=== PATIENT | female | born 1950 | race African-American/Black ===

== ENCOUNTER 2019-08-28 12:53 | Emergency (ER) | payer MEDICARE, SELFPAY ==
[2019-08-28] VITALS (7 sets, daily range): BP systolic 134–157; BP diastolic 66–78; PULSE 73–82; RESP 15–18; TEMP 36.8–37; O2SAT 99–100
--- NOTE | ~2019-08-28 | XR_ITS ---
XR foot RT min 3V 08/28/2019 14:02 Indication: Right foot pain Procedure: 4 views right foot Comparison: No prior studies for comparison. 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 There is an erosion involving the medial distal margin of the first metatarsal, suspicious for inflammatory arthropathy such as gout. Lisfranc joint intact. No acute fracture or traumatic malalignment. There are arterial calcifications. There are degenerative changes of the midfoot. Impression: 1: Erosion involving the medial distal margin of the first metatarsal, suspicious for inflammatory ar thropathy such as gout. Reviewed, dictated and finalized at location A. Impression: 1: Erosion involving the medial distal margin of the first metatarsal, suspicio us for inflammatory arthropathy such as gout.
--- NOTE | 2019-08-28 13:55 | ED.WOUNDLAC ---
HPI - Wound/Laceration General Chief Complaint: Wound/Laceration Stated Complaint: R toe infection Time Seen by Provider: 08/28/19 13:30 Source: patient Mode of arrival: ambulatory Limitations: no limitations History of Present Illness HPI narrative: Patient presents with chief complaint of wound to the medial aspect of her great toe for approximately 1 month. Patient is a diabetic and states that she has not been taking 1 of her diabetic medications for the past few weeks.Patient is on Victoza and Basaglar.Patient states that she is out of the blue pen but still has refills of the medeiros. She is not sure which is which. Patient has not been checking her glucose levels recently as she lost her glucometer when she moved. Patient was living at [place] but recently moved in with her daughter due to having some issues caring for herself.Patient states she feels her blood sugars have been in good ranges because she has not felt poorly. Patient with missing appointments and was fired from her primary care practice. Her daughter is now trying to find her a new primary care provider but her appointment is not until the . Patient only reports pain to the toe when touched but states she has diabetic neuropathy. Patient states she has been out of her gabepentin. Patient also has schizophrenia and some issues with memory. Patient denies fever, chills, weakness, lethargy. Related Data Home Medications Medication Instructions Recorded Confirmed gabapentin 100 mg PO TID 08/28/19 insulin glargine [Basaglar KwikPen 24 unit SUBCUT DAILY 08/28/19 U-100 Insulin] liraglutide [Victoza 2-Vivek] 0.6 mg SUBCUT DAILY 08/28/19 Allergies Allergy/AdvReac Type Severity Reaction Status Date / Time No Known Allergies Allergy Verified 08/28/19 13:51 Review of Systems Review of Systems: Narrative: cONSTITUTIONAL: Denies fever, chills, or sweats. EYES: Denies visual changes, redness, or discharge. ENT: Denies rhinorrhea, congestion, sore throat, or otalgia. CARDIOVASCULAR: Denies chest pain, palpitations, or edema. RESPIRATORY: Denies cough or dyspnea. GASTROINTESTINAL: Denies abdominal pain, nausea, vomiting, or diarrhea. GENITOURINARY: Denies dysuria or hematuria. SKIN:Reports wound to great toe. Denies rash or itching. MUSCULOSKELETAL: Denies back pain, joint pain, or myalgia. NEUROLOGIC: Denies headache, numbness, dizziness, or weakness. PSYCHIATRIC: Denies anxiety or depression. [facility], [facility] Social History Social History Gender identity (if verbalized by the patient): Female Exam Narrative: Exam Narrative: GENERAL: Well-appearing, well-nourished, and in no acute distress. HEAD: Normocephalic, atraumatic. EYES: PERRLA and EOMI. ENT: Nares clear, no rhinorrhea or epistaxis. Mucous membranes moist. Oropharynx without tonsillar hypertrophy exudate or other lesions. Bilateral TMs pearly medeiros nonbulging CHEST: Clear to auscultation. No respiratory distress. No wheezes rales or rhonchi HEART: Regular rate and rhythm. Normal peripheral pulses. ABDOMEN: Soft, nontender, nondistended, normal active bowel sounds. EXTREMITIES: Normal range of motion. No edema. SKIN: Quarter size wound to the medial aspect of right great toe- pink center, with thick crusted edges. It is warm and erythematous. There is scant serous fluid noted when squeezed.There is not bleeding. Cap refill intact. NEURO: No focal deficits. Alert and oriented x3. PSYCH: Normal mood and affect. Course Vital Signs Vital signs: Vital Signs Temperature 98.6 F 08/28/19 13:05 Pulse Rate 82 08/28/19 13:05 Respiratory Rate 18 08/28/19 13:05 Blood Pressure 135/66 08/28/19 13:05 Pulse Oximetry 99 08/28/19 13:05 Temperature 98.2 F 08/28/19 13:45 Pulse Rate 74 08/28/19 16:04 Respiratory Rate 16 08/28/19 16:04 Blood Pressure 157/74 H 08/28/19 16:04 Pulse Oximetry 100 08/28/19 16:04 MDM - Wound/Laceration MDM Narrative Medical decision making narrative:
[2019-08-28 14:18] LABS: Basophils Percent Auto 0.5 % (0.2-1.2); Eosinophils Absolute Auto 0.1 K/mm3 (0-0.3); Eosinophils Percent Auto 1.1 % (0-4.4); Hematocrit 34.3 % (37.0-47.0); Hemoglobin 10.8 g/dL (12.0-15.0); Immature Granulocyte Absolute 0.02 K/mm3 (0.00-0.031); Immature Granulocyte Percent A 0.2 % (0-0.5); Lymphocytes Absolute Auto 2.75 K/mm3 (0.9-3.2); Lymphocytes Percent Auto 31.2 % (18.3-44.2); Mean Corpuscular HGB Conc 31.5 g/dl (32-36); Mean Corpuscular Hemoglobin 29.3 pg (26-34); Mean Corpuscular Volume 93.2 fl (80-100); Mean Platelet Volume 10.3 fl (7.4-10.4); Monocytes Absolute Auto 0.5 K/mm3 (0.1-0.6); Monocytes Percent Auto 5.1 % (2.6-8.5); Neutrophils Absolute Auto 5.5 K/mm3 (1.3-6.7); Neutrophils Percent Auto 61.9 % (45.5-73.1); Platelet Count Result 371 k/mm3 (150-375); Red Blood Count 3.68 M/mm3 (4.2-5.4); Red Cell Distribution Width 13.5 % (11.5-14.5); White Blood Count 8.8 K/mm3 (4.5-10.0)
[2019-08-28 14:34] LABS: Albumin Level 3.9 g/dL (3.5-5.1)
[2019-08-28 14:35] LABS: Alanine Aminotransferase 18 U/L (4-35); Alkaline Phosphatase 193 U/L (38-126); Aspartate Amino Transferase 18 U/L (14-36); Bilirubin,Total 0.2 mg/dL (0.2-1.3); Blood Urea Nitrogen 18 mg/dL (7-17); Calcium 9.9 mg/dL (8.4-10.2); Carbon Dioxide 31 mmol/L (22-30); Chloride 99 mmol/L (98-107); Estimated CRCL calculation 46 ml/min; Estimated Glomerular Filt Rate > 60; Glucose 374 mg/dL (65-105); Sodium 137 mmol/L (137-145); Uric Acid 5.3 mg/dL (2.5-7.5)
[2019-08-28 14:43] LABS: CRP 3.6 mg/dL (<1.0)
[2019-08-28 15:08] LABS: Erythrocyte Sedimentation Rate 61 mm/hr (0-20)
--- NOTE | 2019-08-28 15:09 | PC.NURSE ---
SPOKE WITH BRAEDEN AT [facility] IN [place] ABOUT PT MED REC.
--- NOTE | 2019-08-28 15:20 | PC.NURSE ---
FAMILY AT BEDSIDE COMPLAINING THAT ABOUT WAIT TIMES, RN AT BEDSIDE INFORM THEM OF PA CARE PLAN.
[2019-08-28] MEDS: INSULIN HUMAN REGULAR (*BKC) 100 UNITS/ML SUB-Q (15:56)
[2019-08-28] MEDS: SODIUM CHLORIDE 0.9% IV 1,000 ML 999 ML IV CONT (15:56)
[2019-08-28 16:50] LABS: Glucose Point of Care 260 (65-105)
--- NOTE | 2019-08-28 17:22 | PC.NURSE ---
ANAY DE SANTIAGO AT BEDSIDE INFORMING PT OF RESULTS AND CARE PLAN. VERBAL ORDER FOR WET TO DRY DRESSING ON TOE AND DIABETIC EDUCATION.
== END 2019-08-28 18:16 | disposition home or self-care (01) ==
PROVIDERS: Physician Assistant; Emergency Provider Emergency Medicine
DX: E11.621 Type 2 diabetes mellitus with foot ulcer (principal); E11.65 Type 2 diabetes mellitus with hyperglycemia; E11.42 Type 2 diabetes mellitus with diabetic polyneuropathy; Z79.4 Long term (current) use of insulin; L97.519 Non-pressure chronic ulcer of other part of right foot with unspecified severity
CPT/HCPCS: 36415; 73630; 80053; 84550; 85025; 85652; 86140; 96360; 99283; J1815; J7030

== ENCOUNTER 2020-03-25 07:50 | Emergency (ER) | payer MEDICARE, MEDICAID, SELFPAY ==
--- NOTE | ~2020-03-25 | US_ITS ---
EXAMINATION: US venous doppler LE RT EXAM DATE: 03/25/2020 09:50 INDICATION: Right lower extremity swelling. TECHNIQUE: Multiple grayscale, color flow and Doppler images of the right lower extremity deep venous system were obtained and reviewed. There is no prior study for comparison. FINDINGS: The right common femoral, femoral and profunda veins demonstrate normal color flow, respira tory variation, augmentation and compressibility. Compressibility, color flow confirmed within the r ight popliteal, posterior tibial, peroneal, and greater saphenous veins. IMPRESSION: 1. No right lower extremity deep venous thrombosis. Reviewed, dictated and finalized at location A.
--- NOTE | 2020-03-25 08:29 | ECG_ITS ---
Measurements Intervals [place] Rate: 85 P: 66 [place]: 153 QRS: 22 QRSD: 75 T: 68 QT: 378 QTc: 451 Interpretive Statements SINUS RHYTHM DELAYED PRECORDIAL R/S TRANSITION BORDERLINE T WAVE ABNORMALITY- HIGH LATERAL LEADS BORDERLINE ECG Electronically Signed On 03-25-2020 16:50:27 CDT by Melquiades Marte D.O.
[2020-03-25 08:43] VITALS: BP 125/69; PULSE 79; RESP 14; O2SAT 100
[2020-03-25 08:47] LABS: Basophils Percent Auto 0.4 % (0.2-1.2); Eosinophils Absolute Auto 0.1 K/mm3 (0-0.3); Eosinophils Percent Auto 1.3 % (0-4.4); Hematocrit 35.2 % (37.0-47.0); Hemoglobin 11.4 g/dL (12.0-15.0); Immature Granulocyte Absolute 0.02 K/mm3 (0.00-0.031); Immature Granulocyte Percent A 0.2 % (0-0.5); Lymphocytes Absolute Auto 2.41 K/mm3 (0.9-3.2); Lymphocytes Percent Auto 24.7 % (18.3-44.2); Mean Corpuscular HGB Conc 32.4 g/dl (32-36); Mean Corpuscular Hemoglobin 28.6 pg (26-34); Mean Corpuscular Volume 88.2 fl (80-100); Mean Platelet Volume 11.2 fl (7.4-10.4); Monocytes Absolute Auto 0.5 K/mm3 (0.1-0.6); Monocytes Percent Auto 5.2 % (2.6-8.5); Neutrophils Absolute Auto 6.6 K/mm3 (1.3-6.7); Neutrophils Percent Auto 68.2 % (45.5-73.1); Platelet Count Result 310 k/mm3 (150-375); Red Blood Count 3.99 M/mm3 (4.2-5.4); Red Cell Distribution Width 16.9 % (11.5-14.5); White Blood Count 9.8 K/mm3 (4.5-10.0)
[2020-03-25] MEDS: MECLIZINE HCL 25 MG TABLET PO (09:05)
[2020-03-25 09:33] LABS: Anion Gap 5 mmol/L (8-16); Blood Urea Nitrogen 35 mg/dL (7-17); Calcium 9.9 mg/dL (8.4-10.2); Carbon Dioxide 32 mmol/L (22-30); Chloride 104 mmol/L (98-107); Estimated Glomerular Filt Rate 45; Glucose 251 mg/dL (65-105); Potassium 4.8 mmol/L (3.4-5.0); Sodium 141 mmol/L (137-145)
[2020-03-25 09:51] VITALS: BP 141/87; PULSE 78
[2020-03-25 09:52] VITALS: BP 149/80; PULSE 79
[2020-03-25 09:53] VITALS: BP 124/74; PULSE 84
[2020-03-25] MEDS: SODIUM CHLORIDE 0.9% IV 1,000 ML 999 ML IV CONT (10:04)
[2020-03-25 10:14] VITALS: BP 155/82; PULSE 91; RESP 12; O2SAT 12
--- NOTE | 2020-03-25 11:02 | ED.DIZZY ---
HPI - Dizziness General Chief Complaint: Dizziness Stated Complaint: dizzy Time Seen by Provider: 03/25/20 08:38 History of Present Illness HPI Narrative: Patient is a 69-year-old female who presents the ER with dizziness. She reports that over the last couple of days she has had intermittent dizziness where everything is moving in her vision. This morning it was more severe and she is sweaty and nauseated. No vomiting. She has not had previous symptoms like this. No focal numbness or weakness in arm or leg. No slurred speech. She has had no sinus congestion or ringing in her ears or pressure in her ears. Patient also reports increased edema in the right lower extremity since having her great toe operated on couple months ago. Related Data Home Medications Medication Instructions Recorded Confirmed gabapentin 100 mg PO TID 08/28/19 insulin glargine [Basaglar KwikPen 24 unit SUBCUT DAILY 08/28/19 U-100 Insulin] liraglutide [Victoza 2-Vivek] 0.6 mg SUBCUT DAILY 08/28/19 Allergies Allergy/AdvReac Type Severity Reaction Status Date / Time No Known Allergies Allergy Verified 08/28/19 13:51 Review of Systems Review of Systems: All systems reviewed & are unremarkable except as noted in HPI and below Constitutional: Constitutional: Denies chills, Denies fever(s) and Denies weakness Eyes: Eyes: Denies change in vision and Denies photophobia ENT: Reports dizziness, Denies nasal congestion and Denies sore throat Cardiovascular: Cardiovascular: Denies chest pain and Denies rapid heart rate Gastrointestinal: Gastrointestinal: Denies abdominal pain, Reports nausea and Denies vomiting PMFSH Past Medical History Medical History (Updated 03/25/20 @ 11:07 by Navneet Smiley MD) Diabetes Diabetic neuropathy Surgical History Surgical History (Updated 03/25/20 @ 11:06 by Navneet Smiley MD) Right great toe amputee Social History Social History (Updated 03/25/20 @ 11:04 by Navneet Smiley MD) Smoking status: Never smoker Gender identity (if verbalized by the patient): Female Exam Narrative: Exam Narrative: GENERAL: Well-appearing, well-nourished, and in no acute distress. HEAD: Normocephalic, atraumatic. EYES: PERRL and EOMI. ENT: Mucous membranes moist. TM's normal bilaterally. CHEST: Clear to auscultation. No respiratory distress. HEART: Regular rate and rhythm. No murmur heard. Normal peripheral pulses. ABDOMEN: Soft, nontender, nondistended. EXTREMITIES: Normal range of motion. No edema. Bandaged right foot. NEURO: No focal deficits. Clear speech. No facial droop. Alert and oriented x3. Course Course Emergency Course: Dizziness resolved with meclizine. Reports that it was worse when she turns her head from side to side she can do that without issue now. She has been eating and drinking the ER without issue. She will be discharged home. Vital Signs Vital signs: Vital Signs Pulse Rate 79 03/25/20 08:43 Respiratory Rate 14 03/25/20 08:43 Blood Pressure 125/69 03/25/20 08:43 Pulse Oximetry 100 03/25/20 08:43 Pulse Rate 91 03/25/20 10:14 Respiratory Rate 12 03/25/20 10:14 Blood Pressure 155/82 H 03/25/20 10:14 Pulse Oximetry 12 L 03/25/20 10:14 MDM - Dizziness Lab Data Result diagrams: 03/25/20 08:33 03/25/20 09:13 Labs: Lab Results 03/25/20 03/25/20 Range/Units 08:33 09:13 WBC 9.8 (4.5-10.0) K/mm3 RBC 3.99 L (4.2-5.4) M/mm3 Hgb 11.4 L (12.0-15.0) g/dL Hct 35.2 L (37.0-47.0) % MCV 88.2 (80-100) fl MCH 28.6 (26-34) pg MCHC 32.4 (32-36) g/dl RDW 16.9 H (11.5-14.5) % Plt Count 310 (150-375) k/mm3 MPV 11.2 H (7.4-10.4) fl Immature Gran % (Auto) 0.2 (0-0.5) % Neut % (Auto) 68.2 (45.5-73.1) % Lymph % (Auto) 24.7 (18.3-44.2) % Becker % (Auto) 5.2 (2.6-8.5) % Eos % (Auto) 1.3 (0-4.4) % Baso % (Auto) 0.4 (0.2-1.2) % Lymph # (Auto) 2.41 (0.9-3.2) K
[2020-03-25 11:24] VITALS: BP 134/68; PULSE 68; RESP 16; O2SAT 100
== END 2020-03-25 11:25 | disposition home or self-care (01) ==
PROVIDERS: Emergency Provider Emergency Medicine
DX: H81.10 Benign paroxysmal vertigo, unspecified ear (principal); E11.42 Type 2 diabetes mellitus with diabetic polyneuropathy; Z79.4 Long term (current) use of insulin; Z89.411 Acquired absence of right great toe; R60.0 Localized edema
CPT/HCPCS: 36415; 80048; 85025; 93005; 93971; 96360; 99284; A9270; J7030

== ENCOUNTER 2020-05-16 20:53 | Emergency (ER) | payer MEDICARE, MEDICAID, SELFPAY ==
--- NOTE | ~2020-05-16 | CT_ITS ---
EXAMINATION: CT brain wo con DATE: 05/16/2020 22:42 INDICATION: Near syncope TECHNIQUE: Computed tomography (CT) of the head was performed without intravenous contrast. Sagittal and coronal reconstructions were performed. The mA was adjusted according to patient size. Iterative reconstruction technique was employed. The dose-length product was 529.67 mGy-cm. COMPARISON: None FINDINGS: No acute intracranial hemorrhage, acute infarction or abnormal extra axial fluid collection. There is mild scattered white matter hypoattenuation consistent with chronic small vessel ischemic disease. Ventricles are normal and symmetric. No mass/mass effect. Changes of right intraocular lens replaceme nt. The orbits, paranasal sinuses and mastoid air cells are normal. Hyperostosis frontalis. IMPRESSION: 1. No acute intracranial process. 2. Mild scattered white matter hypoattenuation consistent with chronic small vessel ischemic disease. Reviewed, dictated and finalized at [facility]. HEAT TECHNICIAN IMPRESSION: 1. No acute intracranial process. 2. Mild scattered white matter hypoattenuation consistent with chronic small ve ssel ischemic disease.
--- NOTE | ~2020-05-16 | XR_ITS ---
EXAMINATION: XR chest 1V portable DATE: 05/16/2020 22:31 INDICATION: Near syncope, fever, runny nose and numbness fingers. TECHNIQUE: frontal view of the chest was obtained. COMPARISON: None FINDINGS: The lungs are clear with no focal airspace opacities, pulmonary edema, pleural effusion or pneumothor ax. The cardiomediastinal silhouette is normal. IMPRESSION: 1. No acute cardiopulmonary disease. Reviewed, dictated and finalized at location . MATIC BEADING LATHE OPERATOR
[2020-05-16 21:08] VITALS: BP 128/64; PULSE 90; RESP 17; TEMP 36.7; O2SAT 99
[2020-05-16 21:24] VITALS: RESP 11
--- NOTE | 2020-05-16 21:27 | ECG_ITS ---
Measurements Intervals [place] Rate: 84 P: 69 [place]: 155 QRS: 24 QRSD: 81 T: 62 QT: 366 QTc: 433 Interpretive Statements SINUS RHYTHM NORMAL ECG Electronically Signed On 05-17-2020 8:48:18 BATTERY STARTER by Melquiades Marte D.O.
[2020-05-16 21:38] LABS: Basophils Percent Auto 0.3 % (0.2-1.2); Eosinophils Absolute Auto 0.2 K/mm3 (0-0.3); Eosinophils Percent Auto 1.8 % (0-4.4); Hemoglobin 10.9 g/dL (12.0-15.0); Immature Granulocyte Absolute 0.03 K/mm3 (0.00-0.031); Immature Granulocyte Percent A 0.3 % (0-0.5); Lymphocytes Absolute Auto 3.62 K/mm3 (0.9-3.2); Lymphocytes Percent Auto 41.2 % (18.3-44.2); Mean Corpuscular Hemoglobin 29.1 pg (26-34); Mean Platelet Volume 10.9 fl (7.4-10.4); Monocytes Absolute Auto 0.5 K/mm3 (0.1-0.6); Monocytes Percent Auto 5.9 % (2.6-8.5); Neutrophils Absolute Auto 4.4 K/mm3 (1.3-6.7); Neutrophils Percent Auto 50.5 % (45.5-73.1); Platelet Count Result 266 k/mm3 (150-375); Red Blood Count 3.75 M/mm3 (4.2-5.4); Red Cell Distribution Width 16.1 % (11.5-14.5); White Blood Count 8.8 K/mm3 (4.5-10.0)
[2020-05-16 21:49] LABS: Anion Gap 6 mmol/L (8-16); Blood Urea Nitrogen 37 mg/dL (7-17); Calcium 9.8 mg/dL (8.4-10.2); Carbon Dioxide 33 mmol/L (22-30); Chloride 103 mmol/L (98-107); Estimated CRCL calculation 29 ml/min; Estimated Glomerular Filt Rate 49; Glucose 194 mg/dL (65-105); Potassium 4.5 mmol/L (3.4-5.0); Sodium 142 mmol/L (137-145)
[2020-05-16] MEDS: SODIUM CHLORIDE 0.9% IV 500 ML 999 ML IV CONT (22:06)
[2020-05-16 22:07] VITALS: BP 146/74; PULSE 81
[2020-05-16 22:08] VITALS: BP 141/108; PULSE 84
--- NOTE | 2020-05-16 22:08 | PC.NURSE ---
Called lab to add on Hepatic, CMP, MG, Trop I, CBCD
[2020-05-16 22:10] VITALS: BP 138/67; PULSE 86
[2020-05-16 22:19] LABS: Alanine Aminotransferase 14 U/L (4-35); Alkaline Phosphatase 147 U/L (38-126); Anion Gap 9 mmol/L (8-16); Aspartate Amino Transferase 27 U/L (14-36); Bilirubin,Total 0.3 mg/dL (0.2-1.3); Blood Urea Nitrogen 38 mg/dL (7-17); Calcium 9.9 mg/dL (8.4-10.2); Carbon Dioxide 31 mmol/L (22-30); Chloride 103 mmol/L (98-107); Estimated CRCL calculation 29 ml/min; Estimated Glomerular Filt Rate 49; Glucose 198 mg/dL (65-105); Magnesium 1.9 mg/dL (1.6-2.3); Potassium 4.5 mmol/L (3.4-5.0); Sodium 143 mmol/L (137-145)
[2020-05-16 22:22] LABS: Lactic Acid Reflex 1.1 mmol/L (0.7-2.1)
[2020-05-16 22:30] LABS: Troponin I < 0.012 ng/mL (0.000-0.034)
[2020-05-16 22:36] LABS: Add Urine Microscopic? YES; Appearance Urine Clear (Clear); Bilirubin Urine Negative (Negative); Blood Urine Negative (Negative); Color Urine Yellow (Yellow); Glucose Urine UA 3+ mg/dL (Negative); Ketones Urine Negative (Negative); Leukocyte Esterase Ur 1+ LEU/UL (Negative); Mucus Urine Rare /lpf; Nitrate Urine Negative (Negative); Protein Urine 3+ mg/dL (Negative); Specific Grav Ur 1.013 (1.001-1.035); Squamous Epithelial Cell Urine Occasional /hpf (Few); Urobilinogen Urine Negative mg/dL (<2.0); WBC Urine 21-30 /hpf
[2020-05-16 23:32] VITALS: BP 143/84; PULSE 78; RESP 16; O2SAT 99
--- NOTE | 2020-05-16 23:58 | ED.GENADULT ---
HPI - General Adult General Chief complaint: Upper Respiratory Infection Stated complaint: cough, headache, dizzy, fever Time Seen by Provider: 05/16/20 21:31 History of Present Illness HPI narrative: Patient is a 69-year-old female who presents to emergency department with chief complaint of generalized weakness. Patient reports that she has been seen in the emergency department last month for an episode of dizziness and was diagnosed with vertigo. Patient states that for the last several days she has been feeling little weaker than normal feels, lightheaded whenever she stands up and states tonight she started feeling lightheaded and felt as though she was going to pass out but did not actually pass out. Patient denies chest pain denies shortness of breath denies vomiting or diarrhea patient reports symptoms are worse with standing and improved with rest. Related Data Home Medications Medication Instructions Recorded Confirmed insulin glargine [Basaglar KwikPen 24 unit SUBCUT DAILY 08/28/19 U-100 Insulin] gabapentin 05/16/20 liraglutide [Victoza 2-Vivek] mg SUBCUT 05/16/20 lisinopril 05/16/20 Allergies Allergy/AdvReac Type Severity Reaction Status Date / Time No Known Allergies Allergy Verified 05/16/20 21:15 Review of Systems Review of Systems: Narrative: CONSTITUTIONAL: Denies fever, chills, or sweats. EYES: Denies visual changes, redness, or discharge. ENT: Denies rhinorrhea, congestion, sore throat, or otalgia. CARDIOVASCULAR: Denies chest pain, palpitations, or edema. RESPIRATORY: Denies cough or dyspnea. GASTROINTESTINAL: Denies abdominal pain, nausea, vomiting, or diarrhea. GENITOURINARY: Denies dysuria or hematuria. SKIN: Denies rash or itching. MUSCULOSKELETAL: Denies back pain, joint pain, or myalgia. NEUROLOGIC: Denies headache, numbness, or weakness. PSYCHIATRIC: Denies anxiety or depression. A 10 system review of systems was completed on the patient and is negative except for what is stated in the HPI. Nursing and ancillary documentation was reviewed. [facility] Past Medical History Medical History Diabetes Diabetic neuropathy Surgical History Surgical History Right great toe amputee Social History Social History Smoking status: Never smoker Gender identity (if verbalized by the patient): Female Exam Narrative: Exam Narrative: GENERAL: Well-appearing, well-nourished, and in no acute distress. HEAD: Normocephalic, atraumatic. EYES: PERRLA and EOMI. ENT: Nares clear, no rhinorrhea or epistaxis. Mucous membranes moist. NECK: Supple. CHEST: Clear to auscultation. No respiratory distress. HEART: Regular rate and rhythm. No murmur heard. Normal peripheral pulses. ABDOMEN: Soft, nontender, nondistended, normal active bowel sounds. EXTREMITIES: Normal range of motion. No edema. SKIN: Warm, dry, no rash. NEURO: No focal deficits. Alert and oriented x3. PSYCH: Normal mood and affect. Course Course Emergency Course: EKG shows sinus rhythm rate of [address] elevation or ST depression Studies were obtained on the patient which showed that she had a mild urinary tract infection. He had showed no evidence of acute infarct chest x-ray showed no focal abnormalities. At this time the patient will be discharged home she will be started on a course of Keflex. Vital Signs Vital signs: Vital Signs Temperature 36.7 C 05/16/20 21:08 Pulse Rate 90 05/16/20 21:08 Respiratory Rate 17 05/16/20 21:08 Blood Pressure 128/64 05/16/20 21:08 Pulse Oximetry 99 05/16/20 21:08 Temperature 36.7 C 05/16/20 21:08 Pulse Rate 78 05/16/20 23:32 Respiratory Rate 16 05/16/20 23:32 Blood Pressure 143/84 H 05/16/20 23:32 Pulse Oximetry 99 05/16/20 23:32 Medical Decision Making Vital Signs
[2020-05-17 00:10] VITALS: BP 134/96; PULSE 94; RESP 20; TEMP 36.6; O2SAT 97
== END 2020-05-17 00:11 | disposition home or self-care (01) ==
PROVIDERS: General Practice; Emergency Provider Emergency Medicine
DX: N39.0 Urinary tract infection, site not specified (principal); R55 Syncope and collapse; E11.42 Type 2 diabetes mellitus with diabetic polyneuropathy; Z79.4 Long term (current) use of insulin; Z89.411 Acquired absence of right great toe
CPT/HCPCS: 36415; 70450; 71045; 80048; 80053; 81001; 82248; 82948; 83605; 83735; 84484; 85025; 87086; 87088; 93005; 96360; 99284; J7040

== ENCOUNTER 2020-07-23 20:01 | Emergency (ER) | payer MEDICARE, MEDICAID, SELFPAY ==
[2020-07-23 20:09] VITALS: BP 177/81; PULSE 102; RESP 16; TEMP 36.3; O2SAT 97
[2020-07-23 22:08] LABS: Basophils Percent Auto 0.4 % (0.2-1.2); Eosinophils Absolute Auto 0.2 K/mm3 (0-0.3); Eosinophils Percent Auto 1.5 % (0-4.4); Hematocrit 33.5 % (37.0-47.0); Hemoglobin 10.8 g/dL (12.0-15.0); Immature Granulocyte Absolute 0.03 K/mm3 (0.00-0.031); Immature Granulocyte Percent A 0.3 % (0-0.5); Lymphocytes Absolute Auto 2.67 K/mm3 (0.9-3.2); Lymphocytes Percent Auto 27.3 % (18.3-44.2); Mean Corpuscular HGB Conc 32.2 g/dl (32-36); Mean Corpuscular Hemoglobin 30.8 pg (26-34); Mean Corpuscular Volume 95.4 fl (80-100); Mean Platelet Volume 10.7 fl (7.4-10.4); Monocytes Absolute Auto 0.8 K/mm3 (0.1-0.6); Monocytes Percent Auto 8.3 % (2.6-8.5); Neutrophils Absolute Auto 6.1 K/mm3 (1.3-6.7); Neutrophils Percent Auto 62.2 % (45.5-73.1); Platelet Count Result 309 k/mm3 (150-375); Red Blood Count 3.51 M/mm3 (4.2-5.4); Red Cell Distribution Width 14.2 % (11.5-14.5); White Blood Count 9.8 K/mm3 (4.5-10.0)
[2020-07-23 22:19] LABS: Anion Gap 1 mmol/L (8-16); Blood Urea Nitrogen 23 mg/dL (7-17); Calcium 9.8 mg/dL (8.4-10.2); Carbon Dioxide 35 mmol/L (22-30); Chloride 106 mmol/L (98-107); Estimated CRCL calculation 40 ml/min; Estimated Glomerular Filt Rate 60; Glucose 178 mg/dL (65-105); Potassium 4.7 mmol/L (3.4-5.0); Sodium 142 mmol/L (137-145)
--- NOTE | 2020-07-23 22:57 | ED.GENADULT ---
HPI - General Adult General Chief complaint: Extremity Injury, Upper Stated complaint: back and arm pain Time Seen by Provider: 07/23/20 21:01 History of Present Illness HPI narrative: Patient is a 69-year-old female who presents ER with tingling to her fingertips and the tips of her toes. She does have history of diabetic neuropathy and takes gabapentin for this. Reports its increased over the last 2 days and associated with new edema in her feet over the last 2 days. She believes her sugars have been within her normal range for her. No weakness in her arms or legs. Patient reports she still has sensation of sharp/soft/hot/cold despite having the tingling feeling. She cannot find any aggravating or alleviating factors. Patient also reports over the last day she has been having pain in her right trapezius. She is taking Tylenol with helps this slightly. Patient also reports intermittent cramps to her left mid arm and bicep/tricep. Related Data Home Medications Medication Instructions Recorded Confirmed insulin glargine [Basaglar KwikPen 24 unit SUBCUT DAILY 08/28/19 U-100 Insulin] gabapentin 05/16/20 liraglutide [Victoza 2-Vivek] mg SUBCUT 05/16/20 lisinopril 05/16/20 Allergies Allergy/AdvReac Type Severity Reaction Status Date / Time No Known Allergies Allergy Verified 05/16/20 21:15 Review of Systems Review of Systems: All systems reviewed & are unremarkable except as noted in HPI and below Constitutional: Constitutional: Denies chills, Denies fever(s) and Denies weakness ENT: Denies nasal congestion and Denies sore throat Cardiovascular: Cardiovascular: Denies chest pain, Denies rapid heart rate and Denies radiating jaw, neck or arm pain Respiratory: Respiratory: Denies cough, Denies dyspnea and Denies wheezing Gastrointestinal: Gastrointestinal: Denies abdominal pain, Denies nausea and Denies vomiting Musculoskeletal: Musculoskeletal: Denies arthralgias, Denies joint swelling and Reports muscle cramps Comments: Lower extremity edema Neurologic: Denies focal weakness Comments: Paresthesias PMFSH Past Medical History Medical History Diabetes Diabetic neuropathy Surgical History Surgical History Right great toe amputee Social History Social History Smoking status: Never smoker Gender identity (if verbalized by the patient): Female Exam Narrative: Exam Narrative: GENERAL: Well-appearing, well-nourished, and in no acute distress. HEAD: Normocephalic, atraumatic. Neck: Supple, no midline or paraspinal muscular tenderness. There is mild trapezius tenderness on the right side. CHEST: Clear to auscultation. No respiratory distress. HEART: Regular rate and rhythm. Normal peripheral pulses. Back: No midline tenderness of thoracic or lumbar spine. No reproducible paraspinal muscular tenderness or tenderness around the scapula. EXTREMITIES: Normal range of motion. No edema. SKIN: Warm, dry, no rash. NEURO: Mild decrease in pinprick sensation over the fingertips bilaterally and in the toes. Sensation intact more proximally. Alert and oriented x3. Course Course Emergency Course: D-dimer elevated. Patient given Lovenox to help treat potential DVT that is in her legs. An ultrasound has been scheduled for the morning. I have contacted Dr. Lindo who is on-call for the patient's primary care physician Dr. Corcoran. We have discussed the case and the need for close follow-up of results. Reports they will follow them up to ensure she does not need prolonged anticoagulation. Vital Signs Vital signs: Vital Signs Temperature 97.4 F L 07/23/20 20:09 Pulse Rate 102 H 07/23/20 20:09 Respiratory Rate 16 07/23/20 20:09 Blood Pressure 177/81 H 07/23/20 20:09 Pulse Oximetry 97 07/23/20 20:09 Temperatu
[2020-07-23] MEDS: IBUPROFEN 600 MG TABLET PO (23:14)
[2020-07-23 23:15] VITALS: BP 148/72; PULSE 78; RESP 18; O2SAT 99
--- NOTE | 2020-07-23 23:18 | PC.NURSE ---
Assumed Care of Pt. Report from ALIREZA Solares
[2020-07-23 23:24] LABS: Add Urine Microscopic? YES; Appearance Urine Clear (Clear); Bilirubin Urine Negative (Negative); Blood Urine Negative (Negative); Color Urine Straw (Yellow); Glucose Urine UA 2+ mg/dL (Negative); Ketones Urine Negative (Negative); Leukocyte Esterase Ur Trace LEU/UL (Negative); Mucus Urine Rare /lpf; Nitrate Urine Negative (Negative); Protein Urine 3+ mg/dL (Negative); Specific Grav Ur 1.012 (1.001-1.035); Squamous Epithelial Cell Urine Rare /hpf (Few); Urobilinogen Urine Negative mg/dL (<2.0)
[2020-07-23 23:36] LABS: D Dimer 1.17 ug/mL (<0.48)
--- NOTE | 2020-07-24 00:31 | PC.NURSE ---
RN to call Pt's family when d/c [phone] Dennis.
[2020-07-24 00:40] VITALS: BP 135/74; PULSE 88; RESP 17; O2SAT 97
[2020-07-24] MEDS: ENOXAPARIN 80 MG/0.8 ML SYRINGE 73 MG SUB-Q (00:40)
--- NOTE | 2020-07-24 00:48 | PC.NURSE ---
Upon Discharge, RN heard Pt. mention Suing. RN asked Pt. to repeat herself. Pt. states Oh nothing. I need to see my willow machine tender.
== END 2020-07-24 00:40 | disposition home or self-care (01) ==
PROVIDERS: Emergency Provider Emergency Medicine
DX: R60.9 Edema, unspecified (principal); R20.2 Paresthesia of skin; E11.40 Type 2 diabetes mellitus with diabetic neuropathy, unspecified; Z79.4 Long term (current) use of insulin; Z89.411 Acquired absence of right great toe; R82.998 Other abnormal findings in urine
CPT/HCPCS: 36415; 80048; 81001; 84443; 85025; 85380; 87086; 87088; 93970; 96372; 99283; A9270; J1650

== ENCOUNTER 2020-07-24 07:53 | Outpatient (CLI) | payer MEDICARE, MEDICAID, SELFPAY ==
--- NOTE | ~2020-07-24 | US_ITS ---
EXAMINATION: US venous doppler [facility] DATE: 07/24/2020 08:36 INDICATION: Lower limb edema. TECHNIQUE: Grayscale ultrasound images without and with compression and Doppler ultrasound images of the bilateral lower extremity veins were obtained. COMPARISON: Ultrasound 03/25/20 FINDINGS: The visualized portions of right common femoral vein, profunda (deep) femoral vein, femoral vein, pop liteal vein, peroneal veins, posterior tibial veins, and greater saphenous vein outflow are patent. The visualized portions of left common femoral vein, profunda femoral vein, femoral vein, popliteal v ein, peroneal veins, posterior tibial veins, and greater saphenous vein outflow are patent. IMPRESSION: 1. No deep venous thrombosis. Reviewed, dictated and finalized at location A. CUTTER
== END 2020-07-24 07:54 | disposition home or self-care (01) ==
DX: R60.9 Edema, unspecified (principal)
CPT/HCPCS: 93970

== ENCOUNTER 2021-06-23 15:52 | Emergency (ER) | payer MEDICARE, MEDICAID, SELFPAY ==
--- NOTE | ~2021-06-23 | XR_ITS ---
EXAMINATION: XR chest 2V DATE: 06/23/2021 18:37 INDICATION: Cough and fatigue. COVID-19 positive. TECHNIQUE: Frontal and lateral views of the chest were obtained. COMPARISON: Chest single view 05/16/2020 FINDINGS: There is no pneumonia, pleural effusion, pneumothorax. The heart size is normal. There are prominent paracardial fat pads. IMPRESSION: 1. No acute cardiopulmonary disease. Reviewed, dictated and finalized at location A. SE REFINING SUPERVISOR
[2021-06-23 16:42] VITALS: BP 143/49; PULSE 84; RESP 16; TEMP 36.8; O2SAT 100
--- NOTE | 2021-06-23 17:42 | ED.GENADULT ---
HPI - General Adult General Chief complaint: Upper Respiratory Infection Stated complaint: cough Source: patient Mode of arrival: ambulatory Limitations: no limitations History of Present Illness HPI narrative: Patient presents for evaluation of respiratory symptoms for the last 3 days. Symptoms include productive cough of yellow sputum, fatigue and feeling cold . No fever, nausea, vomiting, shortness of breath. Daughter is here being evaluated for similar symptoms. Daughter was here 1 week ago and had negative strep, flu, Covid testing. Has received COVID vaccination and also had booster. Patient's daughters boyfriend currently has Covid. Patient does not smoke. Patient had Covid in February 2020. Related Data Home Medications Medication Instructions Recorded Confirmed insulin glargine [Basaglar KwikPen 24 unit SUBCUT DAILY 08/28/19 U-100 Insulin] lisinopril 05/16/20 atorvastatin 06/23/21 dulaglutide [Trulicity] mg SUBCUT 06/23/21 empagliflozin [Jardiance] mg 06/23/21 06/23/21 hydrochlorothiazide 06/23/21 omeprazole 06/23/21 pregabalin 06/23/21 risperidone mg 06/23/21 Allergies Allergy/AdvReac Type Severity Reaction Status Date / Time No Known Allergies Allergy Verified 06/23/21 16:40 Review of Systems Review of Systems: CONSTITUTIONAL: Reports feeling cold. Reports fatigue. Denies fever or sweats. EYES: Denies visual changes, redness, or discharge. ENT: Denies rhinorrhea, congestion, sore throat, or otalgia. CARDIOVASCULAR: Denies chest pain, palpitations, or edema. RESPIRATORY: Reports productive cough of yellow sputum. Denies shortness of breath. GASTROINTESTINAL: Denies abdominal pain, nausea, vomiting, or diarrhea. GENITOURINARY: Denies dysuria or hematuria. SKIN: Denies rash or itching. MUSCULOSKELETAL: Denies back pain, joint pain, or myalgia. NEUROLOGIC: Denies headache, numbness, dizziness, or weakness. PSYCHIATRIC: Denies anxiety or depression. [facility] Past Medical History Medical History Diabetes Diabetic neuropathy Schizophrenia Surgical History Surgical History Right great toe amputee Family History Family History Mother Family history unknown Social History Social History Smoking status: Never smoker Alcohol intake: never Substance use: never Living arrangements: with family Gender identity (if verbalized by the patient): Female Sexual Orientation (if Verbalized by the Patient): Straight or Heterosexual Spiritual care concerns: No Exam Narrative: GENERAL: Well-appearing, well-nourished, and in no acute distress. HEAD: Normocephalic, atraumatic. EYES: PERRLA and EOMI. ENT: Nares clear, no rhinorrhea or epistaxis. Mucous membranes moist. Posterior pharyngeal erythema without exudate or swelling. Uvula is midline. Bilateral TMs pearly medeiros nonbulging NECK: Supple. No adenopathy or masses. No carotid bruits or JVD CHEST: Clear to auscultation. No respiratory distress. No wheezes rales or rhonchi HEART: Regular rate and rhythm. No murmur heard. Normal peripheral pulses. ABDOMEN: Soft, nontender, nondistended, normal active bowel sounds. EXTREMITIES: Normal range of motion. No edema. SKIN: Warm, dry, no rash. NEURO: No focal deficits. Alert and oriented x3. PSYCH: Normal mood and affect. Course Course Emergency Course: This is a 70-year-old female who presented with complaints of respiratory symptoms. Her rapid Covid was positive. Strep, influenza were negative. Chest x-ray was negative. She is in no distress. Saturations are 100% on room air. She is diabetic so I advised that she call her PCP tomorrow for instructions on how to proceed with her insulin. She should check her blood sugar 3 times a day.
== END 2021-06-23 19:30 | disposition home or self-care (01) ==
PROVIDERS: Emergency Provider Nurse Practitioner; PCP Hospitalist
DX: U07.1 COVID-19 (principal); E11.42 Type 2 diabetes mellitus with diabetic polyneuropathy; Z89.411 Acquired absence of right great toe
CPT/HCPCS: 71046; 87081; 87426; 87804; 87880; 99213; C9803; G0463

== ENCOUNTER 2021-07-31 00:47 | Inpatient (IN) | payer MEDICARE, MEDICAID, SELFPAY ==
[2021-07-31] VITALS (13 sets, daily range): BP systolic 90–141; BP diastolic 47–76; PULSE 69–86; RESP 12–18; TEMP 35.9–36.7; O2SAT 97–100; BMI 26.2
--- NOTE | ~2021-07-31 | CT_ITS ---
EXAMINATION: CT abdomen pelvis wo con EXAM DATE: 07/31/2021 02:29 INDICATION: Suparpubic pain and LLQ pain r/o diverticulitis . TECHNIQUE: Spiral CT of the abdomen and pelvis was performed without contrast. Axial, coronal and s agittal images of the abdomen and pelvis were reviewed. The dose-length product (DLP) for this exami nation was 333.35 mGy-cm. The exposure was tailored according to patient size (auto mA exposure cont rol), and iterative reconstruction (ASIR) was used as additional dose reduction technique. There is no prior study for comparison. FINDINGS: The liver, spleen, adrenal glands and pancreas are unremarkable. Gallbladder is unremarkab le. No biliary obstruction. There is no nephrolithiasis or hydronephrosis. The uterus is unremark able. The bladder is unremarkable. There is no retroperitoneal or pelvic lymphadenopathy. The appendix is normal. The stomach and small bowel are unremarkable. There is expected amount of c olonic stool. No free intraperitoneal gas. The heart is normal in size. There are no pericardial or pleural effusions. The lung bases are unremarkable. There are no osteoblastic or osteolytic les ions identified. IMPRESSION: 1. No acute intra-abdominal findings. Reviewed, dictated and finalized at location B. ENT CURATOR
--- NOTE | ~2021-07-31 | XR_ITS ---
EXAMINATION: XR chest 1V portable DATE: 07/31/2021 02:09 INDICATION: Recent COVID presenting with weakness and elevated lactic acid TECHNIQUE: frontal view of the chest was obtained. COMPARISON: Chest radiograph dated 06/23/2021 and 05/16/2020 FINDINGS: Unchanged thin linear opacity at the lateral right lower lung zone consistent with chronic mild disco id atelectasis/scarring. No other airspace opacities, pulmonary edema, pleural effusion or pneumothor ax. The cardiomediastinal silhouette is normal. Visualized bones and soft tissues are unremarkable. IMPRESSION: 1. Chronic mild linear discoid atelectasis/scarring at the right lower lung zone. No acute cardiopulm onary disease. Reviewed, dictated and finalized at location A. DING SPECIALIST IMPRESSION: 1. Chronic mild linear discoid atelectasis/scarring at the right lower lung zon e. No acute cardiopulmonary disease.
--- NOTE | ~2021-07-31 | CT_ITS ---
EXAMINATION: CT brain wo con, CT cervical spine wo con EXAM DATE: 07/31/2021 01:43 (accession [id number]), 07/31/2021 01:44 (accession [id number]) INDICATION: falls, weakness, fatigue . TECHNIQUE: Spiral CT of the head was performed without contrast. Axial, coronal and sagittal images were reviewed. Spiral CT of the cervical spine was performed without contrast. Axial images were rev iewed. Coronal and sagittal reformatted images were also reviewed. The dose-length product (DLP) fo r this examination was 605.33 (accession [id number]), 343.93 (accession [id number]) mGy-cm. The exposure was tailored according to patient size, and iterative reconstruction (ASIR) was used as additional dose reduction technique. Comparison is made to prior examination from 05/16/2020. FINDINGS: HEAD CT: There is no acute intraparenchymal hemorrhage. No evidence of intraparenchymal brain mass l esion. No evidence of acute infarction. There is periventricular and subcortical hypodensity, nonspe cific but probably related to small vessel ischemic disease. There is no mass effect or midline sh ift. There is no obstructive hydrocephalus suspected. There are no extra-axial collections. There a re no acute calvarial fractures. Patient has had bilateral ocular lens surgery. Soft tissue is unre markable. The visualized sinuses and mastoid air cells are well aerated. CERVICAL CT: Moderate cervical spondylosis. There is no evidence of acute cervical fracture. The odo ntoid process is intact. Pre-dens space is normal. Prevertebral soft tissue is normal. There are n o soft tissue abnormalities identified. There is no disc space widening or traumatic vertebral body subluxation suspected. Vertebral body and disc heights are well-maintained. A detailed level by oleksandr valle evaluation of spondylosis can be added as addendum if requested. IMPRESSION: 1. No acute intracranial findings or cervical fracture. 2. Moderate cervical spondylosis. 3. Mild microangiopathy. Reviewed, dictated and finalized at location B. ING HAULER IMPRESSION: 1. No acute intracranial findings or cervical fracture. 2. Moderate cervical spondylosis. 3. Mild microangiopathy.
--- NOTE | ~2021-07-31 | US_ITS ---
EXAMINATION: US carotid duplex BI DATE: 08/01/2021 08:50 INDICATION: Syncope. Internal carotid artery atherosclerosis. TECHNIQUE: Grayscale, color Doppler, and pulsed Doppler images of the cervical carotid arteries were obtained. The degree of vessel stenosis is placed in one of the following categories: normal, <50%, 5 0-69%, >=70% but less than near-occlusion, near-occlusion, or total occlusion. Note that percent sten osis relative to normal distal artery lumen diameter is indirectly measured from velocity measurement s as described by Etja, et al. Radiology 2003; 229:340-346. COMPARISON: None. FINDINGS: RIGHT: The right common carotid artery (CCA) peak systolic velocity (PSV) is 72 cm/s. The right internal car otid artery (ICA) PSV is 67 cm/s. The right ICA end-diastolic velocity (EDV) is 20 cm/s. The right IC A/CCA PSV ratio is 0.9. Grayscale and color Doppler images yield an estimate of <50% diameter reducti on from plaque in the ICA. The external carotid artery (ECA) PSV is 63 cm/s. There is antegrade flow in the right vertebral artery. LEFT: The left CCA PSV is 85 cm/s. The left ICA PSV is 82 cm/s. The left ICA EDV is 23 cm/s. The left ICA/C CA PSV ratio is 1.0. Grayscale and color Doppler images yield an estimate of <50% diameter reduction from plaque in the ICA. The ECA PSV is 65 cm/s. There is antegrade flow in the left vertebral artery. IMPRESSION: 1. <50% stenosis in the right internal carotid artery. 2. <50% stenosis in the left internal carotid artery. Reviewed, dictated and finalized at location A. STAGE DEVELOPER
--- NOTE | 2021-07-31 01:17 | ECG_ITS ---
Measurements Intervals [place] Rate: 80 P: 67 LA: 164 QRS: 16 QRSD: 70 T: 64 QT: 399 QTc: 463 Interpretive Statements SINUS RHYTHM BASELINE ARTIFACT- I, II NORMAL ECG Electronically Signed On 07-31-2021 6:30:33 VIBRATION TECHNICIAN by Melquiades Marte D.O.
--- NOTE | 2021-07-31 01:18 | ED.WEAKNESS ---
HPI - Weakness General Chief complaint: Weakness Stated complaint: dizziness, syncope over 3-4 days Time Seen by Provider: 07/31/21 01:10 Source: patient History of Present Illness HPI Narrative: Patient presents with weakness and falls over the past few days. She also reports she has had decreased appetite. Patient reports she had some mild neck pain abdominal pain but denies recent fevers, cough, congestion. She denies hitting her head. She denies any chest pain or shortness of breath. She will just be walking and her legs give out. They reports she is also been sleeping more than usual. Related Data Home Medications Medication Instructions Recorded Confirmed insulin glargine [Basaglar KwikPen 24 unit SUBCUT DAILY 08/28/19 U-100 Insulin] lisinopril 05/16/20 atorvastatin 06/23/21 dulaglutide [Trulicity] mg SUBCUT 06/23/21 empagliflozin [Jardiance] mg 06/23/21 06/23/21 hydrochlorothiazide 06/23/21 omeprazole 06/23/21 pregabalin 06/23/21 risperidone mg 06/23/21 Allergies Allergy/AdvReac Type Severity Reaction Status Date / Time No Known Allergies Allergy Verified 06/23/21 16:40 Review of Systems Review of Systems: CONSTITUTIONAL: Denies fever, chills, or sweats. EYES: Denies visual changes, redness, or discharge. ENT: Denies rhinorrhea, congestion, sore throat, or otalgia. CARDIOVASCULAR: Denies chest pain, palpitations, or edema. RESPIRATORY: Denies cough or dyspnea. GASTROINTESTINAL: Denies nausea, vomiting, or diarrhea. GENITOURINARY: Denies dysuria or hematuria. SKIN: Denies rash or itching. MUSCULOSKELETAL: Denies back pain, joint pain, or myalgia. NEUROLOGIC: Denies headache, numbness, dizziness, or focal weakness. PSYCHIATRIC: Denies anxiety or depression. All systems reviewed & are unremarkable except as noted in HPI and below PMFSH Past Medical History Medical History Diabetes Diabetic neuropathy Schizophrenia Surgical History Surgical History Right great toe amputee Family History Family History Mother Family history unknown Social History Social History Smoking status: Never smoker Alcohol intake: never Substance use: never Gender identity (if verbalized by the patient): Female Sexual Orientation (if Verbalized by the Patient): Straight or Heterosexual Spiritual care concerns: No Exam Narrative: GENERAL: Well-appearing, well-nourished, and in no acute distress. HEAD: Normocephalic, atraumatic. EYES: PERRLA and EOMI. ENT: Nares clear, no rhinorrhea or epistaxis. Mucous membranes moist. NECK: Supple. No masses. No JVD CHEST: Clear to auscultation. No respiratory distress. No wheezes rales or rhonchi HEART: Regular rate and rhythm. No murmur heard. Normal peripheral pulses. ABDOMEN: Soft, nontender, nondistended, normal active bowel sounds. EXTREMITIES: Normal range of motion. No edema. SKIN: Warm, dry, no rash. NEURO: No focal deficits. Alert and oriented x3. PSYCH: Normal mood and affect. Course Reevaluation(s) Reevaluation #1: Patient resting comfortably blood pressure has improved results and plan reviewed with patient and family patient family are comfortable with outpatient plan. Date: 07/31/21 Time: 04:11 Vital Signs Vital signs: Vital Signs Temperature 36.7 C 07/31/21 00:58 Pulse Rate 86 07/31/21 00:58 Respiratory Rate 16 07/31/21 00:58 Blood Pressure 90/47 L 07/31/21 00:58 Pulse Oximetry 100 07/31/21 00:58 Temperature 36.7 C 07/31/21 00:58 Pulse Rate 72 07/31/21 04:30 Respiratory Rate 12 07/31/21 04:30 Blood Pressure 138/76 07/31/21 04:30 Pulse Oximetry 97 07/31/21 04:30 MDM - Weakness Medical Records Medical records narrative: Patient presented with nonspecific weakness and de
[2021-07-31 01:38] LABS: Basophils Percent Auto 0.4 % (0.2-1.2); Eosinophils Absolute Auto 0.1 K/mm3 (0-0.3); Hematocrit 32.7 % (37.0-47.0); Immature Granulocyte Absolute 0.04 K/mm3 (0.00-0.031); Immature Granulocyte Percent A 0.4 % (0-0.5); Lymphocytes Absolute Auto 2.44 K/mm3 (0.9-3.2); Lymphocytes Percent Auto 23.2 % (18.3-44.2); Mean Corpuscular HGB Conc 30.6 g/dl (32-36); Mean Corpuscular Hemoglobin 29.9 pg (26-34); Mean Corpuscular Volume 97.6 fl (80-100); Mean Platelet Volume 10.7 fl (7.4-10.4); Monocytes Absolute Auto 0.7 K/mm3 (0.1-0.6); Monocytes Percent Auto 6.2 % (2.6-8.5); Neutrophils Absolute Auto 7.2 K/mm3 (1.3-6.7); Neutrophils Percent Auto 68.8 % (45.5-73.1); Platelet Count Result 287 k/mm3 (150-375); Red Blood Count 3.35 M/mm3 (4.2-5.4); Red Cell Distribution Width 15.1 % (11.5-14.5); White Blood Count 10.5 K/mm3 (4.5-10.0)
[2021-07-31] MEDS: SODIUM CHLORIDE 0.9% IV 1,000 ML 999 ML IV CONT ×2 (01:49→04:42)
[2021-07-31 01:53] LABS: Alanine Aminotransferase 19 U/L (4-35); Albumin Level 4.2 g/dL (3.5-5.1); Alkaline Phosphatase 94 U/L (38-126); Anion Gap 11 mmol/L (8-16); Aspartate Amino Transferase 27 U/L (14-36); Bilirubin,Total 0.4 mg/dL (0.2-1.3); Blood Urea Nitrogen 51 mg/dL (7-17); Calcium 9.5 mg/dL (8.4-10.2); Carbon Dioxide 23 mmol/L (22-30); Chloride 108 mmol/L (98-107); Estimated CRCL calculation 12 ml/min; Estimated Glomerular Filt Rate 14; Glucose 238 mg/dL (65-110); Potassium 4.1 mmol/L (3.4-5.0); Sodium 142 mmol/L (137-145)
[2021-07-31 01:56] LABS: Lactic Acid Reflex 4.1 mmol/L (0.7-2.1)
[2021-07-31 03:41] LABS: Add Urine Microscopic? YES; Appearance Urine Clear (Clear); Bilirubin Urine Negative (Negative); Blood Urine Negative (Negative); Color Urine Yellow (Yellow); Glucose Urine UA 3+ mg/dL (Negative); Ketones Urine Negative (Negative); Leukocyte Esterase Ur Negative LEU/UL (Negative); Mucus Urine Rare /lpf; Nitrate Urine Negative (Negative); Protein Urine 2+ mg/dL (Negative); RBC Urine 0-2 /hpf (0-2); Specific Grav Ur 1.012 (1.001-1.035); Squamous Epithelial Cell Urine Rare /hpf (Few); Urobilinogen Urine Negative mg/dL (<2.0); WBC Urine 0-3 /hpf
[2021-07-31 04:27] LABS: SARS-CoV-2 RNA PCR Negative
[2021-07-31 04:36] LABS: Reflex Lactic Acid Yes or No Add Lactic
[2021-07-31 05:31] LABS: Lactic Acid 2.1 mmol/L (0.7-2.1)
--- NOTE | 2021-07-31 06:19 | ADMGEN ---
This patient, Barbara Chakraborty, was admitted to Medical Room 244-. Patient/family oriented to hospital policies and general routines including ID bracelet, bed and alarms, visiting hours, pain management, procedures, bathroom and other care routines, personal items, smoking policy, room service/diet, and visiting hours. Information on how to activate the Rapid Response Team has been discussed. Patient/Family are encouraged to report perceived risks to care and to ask questions if they do not understand what they are told or what they should do.
[2021-07-31] MEDS: SODIUM CHLORIDE 0.9% IV 1,000 ML 125 ML IV CONT ×3 (06:22→22:24)
[2021-07-31 07:54] LABS: Glucose Point of Care 149 mg/dl (65-105)
[2021-07-31 11:55] LABS: Glucose Point of Care 163 mg/dl (65-105)
--- NOTE | 2021-07-31 13:12 | PM.IMHP ---
H&P: HPI History of Present Illness Date/Time: 07/31/21 13:12 70-year-old female presents to the emergency room accompanied by her family with complaint of recurrent falls over the last week. Patient states that she was trying to ambulate when she realized she was going to fall and went down next to a chair landing on her knees. Per patient this has been happening a few times this week also associated with nausea and feeling dizzy like she is going to pass out and poor appetite/p.o. intake. Dizziness is worse with movement improves with rest. She denies changes in urinary frequency, fever, chills, shortness of breath, chest pain, vision changes, diaphoresis, headache, and new neuropathic symptoms. Remaining 14 point review of systems negative except for above mentioned Chief Complaint: Generalized weakness Review of Systems Review of Systems: All systems reviewed & are unremarkable except as noted in HPI and below PMFSH Past Medical History Medical History (Updated 07/31/21 @ 17:39 by Linda Roberto MD) COVID Diabetes Diabetic neuropathy Schizophrenia Surgical History Surgical History Right great toe amputee Family History Family History (Updated 07/31/21 @ 06:27 by Nadege Medina RN) Mother Family history unknown Father Heart attack Social History Social History Smoking status: Never smoker Alcohol intake: never Substance use: never Substance use type: does not use Gender identity (if verbalized by the patient): Female Sexual Orientation (if Verbalized by the Patient): Straight or Heterosexual Spiritual care concerns: No Meds Home Medications and Allergies Home Medications Medication Instructions Recorded Confirmed Type lisinopril 20 mg PO HS 05/16/20 07/31/21 History atorvastatin 40 mg PO HS 06/23/21 07/31/21 History dulaglutide [Trulicity] 4.5 mg SUBCUT WEEKLY 06/23/21 07/31/21 History empagliflozin [Jardiance] 25 mg PO DAILY 06/23/21 07/31/21 History hydrochlorothiazide 25 mg PO DAILY 06/23/21 07/31/21 History omeprazole 20 mg PO DAILY 06/23/21 07/31/21 History pregabalin 150 mg PO HS 06/23/21 07/31/21 History docusate sodium [Colace] 50 mg PO BID PRN 07/31/21 07/31/21 History haloperidol 5 mg PO HS 07/31/21 07/31/21 History insulin glargine [Lantus Solostar 60 unit SUBCUT HS 07/31/21 07/31/21 History U-100 Insulin] Allergies Allergy/AdvReac Type Severity Reaction Status Date / Time No Known Allergies Allergy Verified 06/23/21 16:40 Vital Signs Vital Signs - 24 hr 07/31/21 00:58 07/31/21 01:30 07/31/21 01:48 Temperature 98.0 F Pulse Rate 86 80 78 Respiratory Rate 16 16 Blood Pressure 90/47 L 114/48 L Pulse Oximetry 100 98 07/31/21 02:02 07/31/21 04:30 07/31/21 06:06 Temperature Pulse Rate 77 72 69 Respiratory Rate 14 12 16 Blood Pressure 120/53 L 138/76 113/53 L Pulse Oximetry 99 97 98 07/31/21 06:23 Temperature 96.6 F L Pulse Rate 72 Respiratory Rate 18 Blood Pressure 113/48 L Pulse Oximetry 98 Exam Const: General: comfortable and no acute distress HENMT: General nose exam: Normal nares present Mouth: Yes moist mucous membranes Eyes: General: appearance normal, both eyes and all related structures Neck: Neck: supple and no JVD Lymphatic: lymphadenopathy not noted Resp: Auscultation: clear to auscultation bilaterally, no rales, no rhonchi and no wheezes Cardio: Rate: regular rate Rhythm: regular rhythm GI: Inspection: non-distended GI Palp: Yes Soft to palpation, No Tenderness to palpation present (GI) and No Guarding due to palpation present (GI) Auscultation: normal bowel sounds Urinary Catheter: Urinary Catheter: patent and draining and urine clear Skin: General skin exam: normal color, no rashes or lesions noted and no erythema Neuro: Cognition (Neuro): normal cognition Speech: normal speech Motor exa
[2021-07-31 14:00] LABS: Anion Gap 7 mmol/L (8-16); Blood Urea Nitrogen 43 mg/dL (7-17); Calcium 8.6 mg/dL (8.4-10.2); Carbon Dioxide 24 mmol/L (22-30); Chloride 109 mmol/L (98-107); Estimated CRCL calculation 15 ml/min; Estimated Glomerular Filt Rate 22; Glucose 223 mg/dL (65-110); Potassium 4.6 mmol/L (3.4-5.0); Sodium 140 mmol/L (137-145)
[2021-07-31 16:33] LABS: Glucose Point of Care 218 mg/dl (65-105)
[2021-07-31] MEDS: INSULIN ASPART (*BKC) 100 UNITS/ML SUB-Q (16:53)
[2021-07-31] MEDS: ATORVASTATIN 40 MG TABLET PO (20:32)
[2021-07-31] MEDS: HALOPERIDOL 5 MG TABLET PO (20:32)
[2021-07-31] MEDS: HEPARIN SODIUM 5,000 UNITS/ML VIAL 5000 UNITS SUB-Q (20:33)
[2021-07-31 21:03] LABS: Glucose Point of Care 292 mg/dl (65-105)
[2021-08-01] VITALS (13 sets, daily range): BP systolic 144–178; BP diastolic 55–73; PULSE 69–77; RESP 16–17; TEMP 36.1–36.8; O2SAT 97–100
--- NOTE | 2021-08-01 | ECHO_ITS ---
Patient Info Name: Barbara Chakraborty Age: 70 years : 1950 Gender: Female Ht: 62 in Wt: 143 lbs BSA: 1.70 m2 HR: 75 bpm BP: 149 / 65 mmHg Technical Quality: Good Exam Date: 08/01/2021 9:03 AM Exam Location: [facility] Patient Status: Inpatient Admit Date: 07/31/2021 Staff Ordering Physician: Linda Roberto MD Logistics Supply Officer: Yara Coleman RDCS Attending Provider: Scot Davis MD Referring Physician: Pardeep TURPIN; Exam Type: CA echo doppler color flow Study Info Indications R55 - Syncope and collapse Complete two-dimensional, color flow and Doppler transthoracic echocardiogram is performed. Summary 1. Complete two-dimensional, color flow and Doppler transthoracic echocardiogram is performed. 2. Left ventricular systolic function is normal, estimated at 60-65%. 3. There is mildly increased left ventricular wall thickness. 4. The left ventricular diastolic function is grade I diastolic dysfunction. 5. There is mild aortic valve regurgitation. 6. There is mild aortic valve sclerosis. 7. There is trace mitral valve regurgitation. 8. There is trace tricuspid valve regurgitation. 9. No pulmonary hypertension, estimated pulmonary arterial systolic pressure is 35 mmHg. Left Ventricle Left ventricular chamber dimension is normal. Left ventricular systolic function is normal, estimated at 60-65%. There is mildly increased left ventricular wall thickness. Left ventricular septal wall motion is normal. The left ventricular diastolic function is grade I diastolic dysfunction. Global longitudinal strain is abnormal at -15 %. Right Ventricle Right ventricular chamber dimension is normal. Right ventricular systolic function is normal. Left Atria Left atrial chamber dimension is normal. Right Atria Right atrial chamber dimension is normal. Aortic Valve The aortic valve is trileaflet. There is mild aortic valve sclerosis. There is no aortic valve stenosis. There is mild aortic valve regurgitation. Pulmonic Valve The pulmonic valve is normal. There is no pulmonic valve stenosis. There is no pulmonic regurgitation. Mitral Valve The mitral valve has normal leaflets. There is no mitral valve stenosis. There is trace mitral valve regurgitation. Tricuspid Valve The tricuspid valve leaflets are normal. There is mild tricuspid valve stenosis. There is trace tricuspid valve regurgitation. No pulmonary hypertension, estimated pulmonary arterial systolic pressure is 35 mmHg. Pericardium/Pleural The pericardium appears normal. There is no pericardial effusion. Inferior Vena Cava Normal inferior vena cava with >50% collapse upon inspiration consistent with Empty right atrial pressure, 10 mmHg. Aorta The aortic root size at the sinus of Valsalva is normal. The prox ascending aorta size is normal. Left Ventricular Outflow Tract Name Value Normal LVOT 2D LVOT Diameter 1.9 cm LVOT Doppler LVOT Peak Gradient 5 mmHg LVOT Mean Gradient 3 mmHg LVOT VTI 23 cm LVOT VTI/
[2021-08-01] MEDS: HEPARIN SODIUM 5,000 UNITS/ML VIAL 5000 UNITS SUB-Q ×3 (05:10→20:58)
[2021-08-01 09:17] LABS: Anion Gap 5 mmol/L (8-16); Blood Urea Nitrogen 30 mg/dL (7-17); Calcium 9.1 mg/dL (8.4-10.2); Carbon Dioxide 25 mmol/L (22-30); Chloride 112 mmol/L (98-107); Estimated CRCL calculation 18 ml/min; Estimated Glomerular Filt Rate 28; Glucose 172 mg/dL (65-110); Potassium 4.8 mmol/L (3.4-5.0); Sodium 142 mmol/L (137-145)
[2021-08-01] MEDS: SODIUM CHLORIDE 0.9% IV 1,000 ML 125 ML IV CONT (09:29)
[2021-08-01] MEDS: PANTOPRAZOLE 40 MG TABLET PO (09:30)
[2021-08-01] MEDS: INSULIN GLARGINE (*BKC) 100 UNITS/ML 15 UNITS SUB-Q ×2 (09:30→16:56)
[2021-08-01 09:36] LABS: Glucose Point of Care 149 mg/dl (65-105)
[2021-08-01 11:14] LABS: Basophils Absolute Auto 0.1 K/mm3 (0.0-0.1); Basophils Percent Auto 0.4 % (0.2-1.2); Eosinophils Absolute Auto 0.2 K/mm3 (0-0.3); Eosinophils Percent Auto 1.7 % (0-4.4); Hemoglobin 10.3 g/dL (12.0-15.0); Immature Granulocyte Absolute 0.03 K/mm3 (0.00-0.031); Immature Granulocyte Percent A 0.3 % (0-0.5); Lymphocytes Absolute Auto 2.63 K/mm3 (0.9-3.2); Mean Corpuscular HGB Conc 31.2 g/dl (32-36); Mean Corpuscular Volume 96.2 fl (80-100); Monocytes Absolute Auto 0.8 K/mm3 (0.1-0.6); Monocytes Percent Auto 7.2 % (2.6-8.5); Neutrophils Absolute Auto 7.7 K/mm3 (1.3-6.7); Neutrophils Percent Auto 67.4 % (45.5-73.1); Platelet Count Result 294 k/mm3 (150-375); Red Blood Count 3.43 M/mm3 (4.2-5.4); Red Cell Distribution Width 14.9 % (11.5-14.5); White Blood Count 11.5 K/mm3 (4.5-10.0)
[2021-08-01 11:35] LABS: Glucose Point of Care 168 mg/dl (65-105)
--- NOTE | 2021-08-01 13:43 | PM.IMPN ---
Progress Note: A&P Assessment and Plan (1) Elevated lactic acid level: Code(s): R79.89 - Other specified abnormal findings of blood chemistry Status: Acute (2) STEFANO (acute kidney injury): Code(s): N17.9 - Acute kidney failure, unspecified Status: Acute (3) Schizophrenia: Code(s): F20.9 - Schizophrenia, unspecified Status: Acute (4) Diabetes: Code(s): E11.9 - Type 2 diabetes mellitus without complications Status: Acute (5) Poor fluid intake: Code(s): R63.8 - Other symptoms and signs concerning food and fluid intake Status: Acute (6) Decreased appetite: Code(s): R63.0 - Anorexia Status: Acute (7) Weakness generalized: Code(s): R53.1 - Weakness Status: Acute Assessment and Plan: admit to inpatient STEFANO start NS geller for strict Is/Os ST eval blood cultures pending ISS (8) Hyperglycemia due to diabetes mellitus: Code(s): E11.65 - Type 2 diabetes mellitus with hyperglycemia Status: Acute (9) Near syncope: Code(s): R55 - Syncope and collapse Status: Acute (10) Vertigo: Code(s): R42 - Dizziness and giddiness Status: Acute Additional Plan admit to inpatient Telemetry monitoring Echo Carotid ultrasound STEFANO start NS geller for strict Is/Os ST eval blood cultures pending ISS reduce home PM insulin until BG trend inpt reviewed cont zosyn PT/OT heparin SCDs 08/01/21 pt feeling better PT/OT pending STEFANO improving meclizine ordered for her vertigo c/s placed to neurology psychiatric illness appears stable blood cultures NGTD cont current care Subjective Date/time seen: 08/01/21 13:43 pt states that she is feeling better and her strength is improving she is advised that her renal function is improving. pt states that she thinks that she did not drink enough fluid Exam Const: General: comfortable and no acute distress HENMT: General nose exam: Normal nares present Mouth: Yes moist mucous membranes Eyes: General: appearance normal, both eyes and all related structures Neck: Neck: supple and no JVD Resp: Auscultation: clear to auscultation bilaterally, no rales, no rhonchi and no wheezes Cardio: Rate: regular rate Rhythm: regular rhythm GI: Inspection: non-distended Auscultation: normal bowel sounds Urinary Catheter: Urinary Catheter: patent and draining and urine clear Skin: General skin exam: normal color, no rashes or lesions noted and no erythema Neuro: Cognition (Neuro): normal cognition Speech: normal speech Motor exam (neuro): Normal motor muscle tone present throughout Extrem: General: normal to inspection, no edema and no pedal edema Psych: Mental Status: mental status grossly normal Affect: normal affect Objective Data Vital Signs Vital Signs: Vital Signs - 24 hr 07/31/21 14:03 07/31/21 20:00 07/31/21 20:42 Temperature 97.5 F L Pulse Rate 75 75 72 Respiratory Rate 16 16 Blood Pressure 141/54 H Pulse Oximetry 100 100 07/31/21 22:05 07/31/21 22:23 07/31/21 22:24 Temperature 97.9 F Pulse Rate 74 Respiratory Rate 16 Blood Pressure 122/50 L 108/52 L 121/51 L Pulse Oximetry 97 08/01/21 00:00 08/01/21 04:00 08/01/21 06:00 Temperature 98.0 F Pulse Rate 73 74 70 Respiratory Rate 16 Blood Pressure 149/65 H Pulse Oximetry 97 08/01/21 10:25 08/01/21 12:00 08/01/21 12:05 Temperature 97 F L Pulse Rate 73 Respiratory Rate Blood Pressure 178/73 H 162/62 H 152/62 H Pulse Oximetry 100 08/01/21 12:10 Temperature Pulse Rate Respiratory Rate Blood Pressure 144/55 H Pulse Oximetry Intake/Output Intake/Output: Intake & Output 07/29/21 07/30/21 07/31/21 08/01/21 23:59 23:59 23:59 23:59 Intake Total 5760 1490 Output Total 2400 4100 Balance 3360 -2610 Meds/Results Medications: Active Medications Generic Name Dose Route Start Last Admin Trade Name Freq
--- NOTE | 2021-08-01 15:00 | PC.NURSE ---
On 08/01/21, the student, [Karri Riggs], provided care and completed [facility] documentation on this patient. I have reviewed the student's documentation and agree with the findings.
[2021-08-01 16:39] LABS: Glucose Point of Care 128 mg/dl (65-105)
[2021-08-01] MEDS: HALOPERIDOL 5 MG TABLET PO (20:58)
[2021-08-01] MEDS: ATORVASTATIN 40 MG TABLET PO (20:58)
[2021-08-01] MEDS: SODIUM CHLORIDE 0.9% IV 1,000 ML 100 ML IV CONT (21:01)
[2021-08-01 22:20] LABS: Glucose Point of Care 158 mg/dl (65-105)
[2021-08-02] VITALS (13 sets, daily range): BP systolic 130–155; BP diastolic 46–63; PULSE 70–90; RESP 16; TEMP 36.5–36.9; O2SAT 98–100
[2021-08-02] MEDS: HEPARIN SODIUM 5,000 UNITS/ML VIAL 5000 UNITS SUB-Q ×3 (05:49→20:14)
[2021-08-02 06:14] LABS: Basophils Percent Auto 0.4 % (0.2-1.2); Eosinophils Absolute Auto 0.2 K/mm3 (0-0.3); Eosinophils Percent Auto 2.1 % (0-4.4); Hematocrit 30.1 % (37.0-47.0); Hemoglobin 9.4 g/dL (12.0-15.0); Immature Granulocyte Absolute 0.02 K/mm3 (0.00-0.031); Immature Granulocyte Percent A 0.2 % (0-0.5); Lymphocytes Absolute Auto 2.56 K/mm3 (0.9-3.2); Lymphocytes Percent Auto 26.3 % (18.3-44.2); Mean Corpuscular HGB Conc 31.2 g/dl (32-36); Mean Corpuscular Hemoglobin 29.2 pg (26-34); Mean Corpuscular Volume 93.5 fl (80-100); Mean Platelet Volume 10.7 fl (7.4-10.4); Monocytes Absolute Auto 0.6 K/mm3 (0.1-0.6); Monocytes Percent Auto 5.9 % (2.6-8.5); Neutrophils Absolute Auto 6.4 K/mm3 (1.3-6.7); Neutrophils Percent Auto 65.1 % (45.5-73.1); Platelet Count Result 298 k/mm3 (150-375); Red Blood Count 3.22 M/mm3 (4.2-5.4); Red Cell Distribution Width 14.4 % (11.5-14.5); White Blood Count 9.8 K/mm3 (4.5-10.0)
[2021-08-02 06:20] LABS: Alanine Aminotransferase 14 U/L (4-35); Albumin Level 3.8 g/dL (3.5-5.1); Alkaline Phosphatase 126 U/L (38-126); Anion Gap 12 mmol/L (8-16); Aspartate Amino Transferase 22 U/L (14-36); Bilirubin,Total 0.3 mg/dL (0.2-1.3); Blood Urea Nitrogen 22 mg/dL (7-17); CRP 2.2 mg/dL (<1.0); Calcium 9.4 mg/dL (8.4-10.2); Carbon Dioxide 21 mmol/L (22-30); Chloride 108 mmol/L (98-107); Estimated CRCL calculation 22 ml/min; Estimated Glomerular Filt Rate 36; Glucose 134 mg/dL (65-110); Magnesium 2.2 mg/dL (1.6-2.3); Phosphorus 3.6 mg/dL (2.5-4.5); Potassium 4.5 mmol/L (3.4-5.0); Sodium 141 mmol/L (137-145)
[2021-08-02 07:59] LABS: Glucose Point of Care 131 mg/dl (65-105)
[2021-08-02] MEDS: INSULIN GLARGINE (*BKC) 100 UNITS/ML 15 UNITS SUB-Q ×2 (09:22→17:18)
[2021-08-02] MEDS: PANTOPRAZOLE 40 MG TABLET PO (09:22)
[2021-08-02] MEDS: hydrALAZINE HCL 25 MG TABLET PO ×3 (09:22→17:18)
--- NOTE | 2021-08-02 10:35 | WPDNEURCNPN ---
Assessment and Plan Additional Plan complains of recurrent fall with ability to extend both lower extremities with no obvious atrophy of quadriceps but she is complaining of back pain we will obtain the MRI of the lumbosacral spine and otherwise treatment will be continued as such Consult date: 08/02/21 HPI: Barbara Chakraborty is a 70 year old female brought to the emergency room for the complaints of weakness along with the dizziness of several days duration in addition to the history of falls and also mild neck discomfort and abdominal discomfort without any generalized symptomatology, patient has been on insulin for diabetic treatment and along with the lisinopril for the hypertension, and reportedly she is not allergic to any medications, her past history is consistent with a diabetic neuropathy and schizophrenia and amputation of the right great toe Review of Systems Review of Systems: All systems reviewed & are unremarkable except as noted in HPI and below PMFSH Past Medical History Medical History COVID Diabetes Diabetic neuropathy Schizophrenia Surgical History Surgical History Right great toe amputee Family History Family History Mother Family history unknown Father Heart attack Social History Social History Smoking status: Never smoker Alcohol intake: never Substance use: never Substance use type: does not use Gender identity (if verbalized by the patient): Female Sexual Orientation (if Verbalized by the Patient): Straight or Heterosexual Spiritual care concerns: No Meds Home Medications and Allergies Home Medications Medication Instructions Recorded Confirmed Type lisinopril 20 mg PO HS 05/16/20 07/31/21 History atorvastatin 40 mg PO HS 06/23/21 07/31/21 History dulaglutide [Trulicity] 4.5 mg SUBCUT WEEKLY 06/23/21 07/31/21 History empagliflozin [Jardiance] 25 mg PO DAILY 06/23/21 07/31/21 History hydrochlorothiazide 25 mg PO DAILY 06/23/21 07/31/21 History omeprazole 20 mg PO DAILY 06/23/21 07/31/21 History pregabalin 150 mg PO HS 06/23/21 07/31/21 History docusate sodium [Colace] 50 mg PO BID PRN 07/31/21 07/31/21 History haloperidol 5 mg PO HS 07/31/21 07/31/21 History insulin glargine [Lantus Solostar 60 unit SUBCUT HS 07/31/21 07/31/21 History U-100 Insulin] Allergies Allergy/AdvReac Type Severity Reaction Status Date / Time No Known Allergies Allergy Verified 06/23/21 16:40 Vital Signs Vital Signs - 24 hr 08/01/21 12:00 08/01/21 12:05 08/01/21 12:10 Temperature Pulse Rate 77 Respiratory Rate Blood Pressure 162/62 H 152/62 H 144/55 H Pulse Oximetry 08/01/21 14:00 08/01/21 16:00 08/01/21 20:00 Temperature 36.4 C Pulse Rate 77 72 69 Respiratory Rate 17 Blood Pressure 162/62 H Pulse Oximetry 100 08/01/21 20:12 08/01/21 21:18 08/02/21 00:00 Temperature 36.8 C Pulse Rate 72 70 Respiratory Rate 16 Blood Pressure 148/72 H Pulse Oximetry 99 97 08/02/21 04:00 08/02/21 05:45 Temperature 36.5 C Pulse Rate 74 79 Respiratory Rate 16 Blood Pressure 155/60 H Pulse Oximetry 98 Exam Const: General: cooperative, healthy appearing, comfortable and no acute distress Nutritional Appearance: average body habitus Orientation/consciousness: oriented to person, oriented to place and oriented to time Limitations: no limitations HENMT: Head: normocephalic Ears: hearing grossly normal bilaterally Face and sinus: normal facial exam Eyes: General: appearance normal, both eyes and all related structures Visual Cavanaugh: normal visual cavanaugh by confrontation Alignment and Position: alignment normal Periorbital: periorbital findings normal Eyelids: eyelids normal Conjunctivae: conjunctivae normal Sclera: sclerae normal Cornea: corne
[2021-08-02 11:05] LABS: Glucose Point of Care 124 mg/dl (65-105)
[2021-08-02] MEDS: SODIUM CHLORIDE 0.9% IV 1,000 ML 100 ML IV CONT (11:22)
--- NOTE | 2021-08-02 11:24 | PM.IMPN ---
Progress Note: A&P Assessment and Plan (1) Elevated lactic acid level: Code(s): R79.89 - Other specified abnormal findings of blood chemistry Status: Acute (2) STEFANO (acute kidney injury): Code(s): N17.9 - Acute kidney failure, unspecified Status: Acute (3) Schizophrenia: Code(s): F20.9 - Schizophrenia, unspecified Status: Acute (4) Diabetes: Code(s): E11.9 - Type 2 diabetes mellitus without complications Status: Acute (5) Poor fluid intake: Code(s): R63.8 - Other symptoms and signs concerning food and fluid intake Status: Acute (6) Decreased appetite: Code(s): R63.0 - Anorexia Status: Acute (7) Weakness generalized: Code(s): R53.1 - Weakness Status: Acute (8) Hyperglycemia due to diabetes mellitus: Code(s): E11.65 - Type 2 diabetes mellitus with hyperglycemia Status: Acute (9) Near syncope: Code(s): R55 - Syncope and collapse Status: Acute (10) Vertigo: Code(s): R42 - Dizziness and giddiness Status: Acute Additional Plan admit to inpatient Telemetry monitoring Echo Carotid ultrasound STEFANO start NS geller for strict Is/Os ST eval blood cultures pending ISS reduce home PM insulin until BG trend inpt reviewed cont zosyn PT/OT heparin SCDs 08/01/21 pt feeling better PT/OT pending STEFANO improving meclizine ordered for her vertigo c/s placed to neurology psychiatric illness appears stable blood cultures NGTD cont current care 08/02/21 pt improving renal fxn recovering cont current care IV fluid resuscitation ongoing rate decreased today to 70cc/hr work up for infection negative to date but pt greatly approved anticipate dc to SNF in 24 -48hrs pending neuro clearance Subjective Date/time seen: 08/02/21 11:24 pt feeling better labs normalizing agrees to SNF at dc Exam Narrative: GENERAL: Well-appearing, well-nourished, and in no acute distress. HEENT: Normocephalic, atraumatic. EOMI MMM NECK: Supple. No masses. No JVD CHEST: No respiratory distress. symmetric chest rise on RA . ABDOMEN: Soft, nontender, nondistended, normal active bowel sounds. EXTREMITIES: Normal range of motion. No edema. SKIN: Warm, dry, no rash. NEURO: No focal deficits. Alert and oriented x3. PSYCH: Normal mood and affect. Objective Data Vital Signs Vital Signs: Vital Signs - 24 hr 08/01/21 12:00 08/01/21 12:05 08/01/21 12:10 Temperature Pulse Rate 77 Respiratory Rate Blood Pressure 162/62 H 152/62 H 144/55 H Pulse Oximetry 08/01/21 14:00 08/01/21 16:00 08/01/21 20:00 Temperature 97.6 F Pulse Rate 77 72 69 Respiratory Rate 17 Blood Pressure 162/62 H Pulse Oximetry 100 08/01/21 20:12 08/01/21 21:18 08/02/21 00:00 Temperature 98.2 F Pulse Rate 72 70 Respiratory Rate 16 Blood Pressure 148/72 H Pulse Oximetry 99 97 08/02/21 04:00 08/02/21 05:45 Temperature 97.7 F Pulse Rate 74 79 Respiratory Rate 16 Blood Pressure 155/60 H Pulse Oximetry 98 Intake/Output Intake/Output: Intake & Output 07/30/21 07/31/21 08/01/21 08/02/21 23:59 23:59 23:59 23:59 Intake Total 5760 3440 1590 Output Total 2400 4850 2250 Balance 0737 -5803 -970 Meds/Results Medications: Active Medications Generic Name Dose Route Start Last Admin Trade Name Freq PRN Reason Stop Dose Admin Atorvastatin Calcium 40 mg 07/31/21 21:00 08/01/21 20:58 Atorvastatin 40 Mg Tablet PO 40 mg HS SLO Administration Dextrose 12.5 gm 07/31/21 13:13 Dextrose 50% 25 Gm/50 Ml Syringe IV PUSH PRN PRN Hypoglycemia Protocol Docusate Sodium 50 mg 07/31/21 13:19 Docusate Sodium Liq 100 Mg/10 Ml Udc PO BID PRN Constipation Glucagon 1 mg 07/31/21 13:13 Glucagon For Inj 1 Mg Vial IM PRN PRN Hypoglycemia Protocol Glucose 15 gm 07/31/21 13:13 Glucose Oral Gel 15 Gm Of Glucse In 37.5 Gm
[2021-08-02 16:54] LABS: Glucose Point of Care 130 mg/dl (65-105)
[2021-08-02] MEDS: ATORVASTATIN 40 MG TABLET PO (20:14)
[2021-08-02] MEDS: HALOPERIDOL 5 MG TABLET PO (20:14)
[2021-08-02 21:06] LABS: Glucose Point of Care 182 mg/dl (65-105)
[2021-08-03] VITALS (9 sets, daily range): BP systolic 127–155; BP diastolic 45–67; PULSE 69–85; RESP 16; TEMP 36.1–36.5; O2SAT 97–100
[2021-08-03] MEDS: SODIUM CHLORIDE 0.9% IV 1,000 ML 70 ML IV CONT (04:01)
[2021-08-03] MEDS: HEPARIN SODIUM 5,000 UNITS/ML VIAL 5000 UNITS SUB-Q ×3 (05:09→21:03)
[2021-08-03 05:50] LABS: Alanine Aminotransferase 15 U/L (4-35); Albumin Level 3.6 g/dL (3.5-5.1); Alkaline Phosphatase 108 U/L (38-126); Anion Gap 8 mmol/L (8-16); Aspartate Amino Transferase 22 U/L (14-36); Bilirubin,Total 0.3 mg/dL (0.2-1.3); Blood Urea Nitrogen 21 mg/dL (7-17); Calcium 9.1 mg/dL (8.4-10.2); Carbon Dioxide 26 mmol/L (22-30); Chloride 108 mmol/L (98-107); Estimated CRCL calculation 20 ml/min; Estimated Glomerular Filt Rate 32; Glucose 133 mg/dL (65-110); Magnesium 2.1 mg/dL (1.6-2.3); Potassium 4.2 mmol/L (3.4-5.0); Sodium 142 mmol/L (137-145)
--- NOTE | 2021-08-03 08:14 | PM.IMPN ---
Progress Note: A&P Assessment and Plan (1) Elevated lactic acid level: Code(s): R79.89 - Other specified abnormal findings of blood chemistry Status: Acute (2) STEFANO (acute kidney injury): Code(s): N17.9 - Acute kidney failure, unspecified Status: Acute (3) Schizophrenia: Code(s): F20.9 - Schizophrenia, unspecified Status: Acute (4) Diabetes: Code(s): E11.9 - Type 2 diabetes mellitus without complications Status: Acute (5) Poor fluid intake: Code(s): R63.8 - Other symptoms and signs concerning food and fluid intake Status: Acute (6) Decreased appetite: Code(s): R63.0 - Anorexia Status: Acute (7) Weakness generalized: Code(s): R53.1 - Weakness Status: Acute Assessment and Plan: admit to inpatient STEFANO start NS geller for strict Is/Os ST eval blood cultures pending ISS (8) Hyperglycemia due to diabetes mellitus: Code(s): E11.65 - Type 2 diabetes mellitus with hyperglycemia Status: Acute (9) Near syncope: Code(s): R55 - Syncope and collapse Status: Acute (10) Vertigo: Code(s): R42 - Dizziness and giddiness Status: Acute Additional Plan admit to inpatient Telemetry monitoring Echo Carotid ultrasound STEFANO start NS geller for strict Is/Os ST eval blood cultures pending ISS reduce home PM insulin until BG trend inpt reviewed cont zosyn PT/OT heparin SCDs 08/01/21 pt feeling better PT/OT pending STEFANO improving meclizine ordered for her vertigo c/s placed to neurology psychiatric illness appears stable blood cultures NGTD cont current care 08/02/21 pt improving renal fxn recovering cont current care IV fluid resuscitation ongoing rate decreased today to 70cc/hr work up for infection negative to date but pt greatly approved anticipate dc to SNF in 24 -48hrs pending neuro clearance 08/03/21 renal fxn unimproved today may be near baseline increase IVs otherwise improved waiting final PT recs anticipate dc to SNF soon Subjective Date/time seen: 08/03/21 08:14 pt states that she is feeling stronger almost back to her normal self. we discuss her renal function and plan to dc tomorrow. pt in agreement Exam Narrative: GENERAL: Well-appearing, well-nourished, and in no acute distress. HEENT: Normocephalic, atraumatic. EOMI MMM NECK: Supple. No masses. No JVD CHEST: No respiratory distress. symmetric chest rise on RA . ABDOMEN: Soft, nontender, nondistended, normal active bowel sounds. EXTREMITIES: Normal range of motion. No edema. SKIN: Warm, dry, no rash. NEURO: No focal deficits. Alert and oriented x3. PSYCH: Normal mood and affect. Objective Data Vital Signs Vital Signs: Vital Signs - 24 hr 08/02/21 12:00 08/02/21 13:23 08/02/21 14:00 Temperature 98.0 F Pulse Rate 78 75 Respiratory Rate 16 Blood Pressure 147/46 H 154/62 H Pulse Oximetry 100 08/02/21 15:00 08/02/21 15:03 08/02/21 15:06 Temperature Pulse Rate Respiratory Rate Blood Pressure 141/58 H 141/63 H 130/51 L Pulse Oximetry 08/02/21 16:00 08/02/21 20:00 08/02/21 21:46 Temperature 98.5 F Pulse Rate 76 90 77 Respiratory Rate 16 Blood Pressure 133/55 L Pulse Oximetry 98 08/03/21 00:00 08/03/21 04:00 08/03/21 05:27 Temperature 96.9 F L Pulse Rate 70 72 69 Respiratory Rate 16 Blood Pressure 144/57 H Pulse Oximetry 98 Intake/Output Intake/Output: Intake & Output 07/31/21 08/01/21 08/02/21 08/03/21 23:59 23:59 23:59 23:59 Intake Total 5760 3440 2720 1500 Output Total 2400 4850 3150 600 Balance 3360 -1410 -430 900 Meds/Results Medications: Active Medications Generic Name Dose Route Start Last Admin Trade Name Freq PRN Reason Stop Dose Admin Atorvastatin Calcium 40 mg 07/31/21 21:00 08/02/21 20:14 Atorvastatin 40 Mg Tablet PO 40 mg HS SOL Administration Dextrose 12.5 gm 07/31/21 13
[2021-08-03 08:18] LABS: Glucose Point of Care 118 mg/dl (65-105)
[2021-08-03] MEDS: hydrALAZINE HCL 25 MG TABLET PO ×3 (08:52→17:25)
[2021-08-03] MEDS: INSULIN GLARGINE (*BKC) 100 UNITS/ML 15 UNITS SUB-Q ×2 (08:52→17:25)
[2021-08-03] MEDS: PANTOPRAZOLE 40 MG TABLET PO (08:52)
[2021-08-03 11:35] LABS: Glucose Point of Care 151 mg/dl (65-105)
--- NOTE | 2021-08-03 13:07 | WPDNEUROPN ---
Progress Note: A&P Additional Plan diabetes mellitus with neuropathy resulting in the gait dysfunction without evidence of cervical stenosis or midline space-occupying lesion on CT scan of the head treatment will be continued as such Subjective Date/time seen: 08/03/21 13:0770 years old right-handed female for the complaints of weakness along with dizziness of several days duration in addition to the history of recurrent falls and also history of underlying diabetes mellitus with neuropathy and schizophrenia, evaluation revealed normal Doppler study of the carotids, negative CT scan of the head with no evidence of normal pressure hydrocephalus or space-occupying lesion, cervical spine CT scan compatible with cervical spondylosis but no evidence of cervical stenosis and negative venous Doppler study Review of Systems Review of Systems: All systems reviewed & are unremarkable except as noted in HPI and below Exam Const: General: cooperative, comfortable and no acute distress Nutritional Appearance: average body habitus and well nourished Orientation/consciousness: oriented to person and oriented to place Limitations: behavioral limitations HENMT: Head: normal to inspection and normocephalic Ears: hearing grossly normal bilaterally General nose exam: Normal external nose present Eyes: General: appearance normal, both eyes and all related structures Visual Cavanaugh: normal visual cavanaugh by confrontation Alignment and Position: alignment normal Periorbital: periorbital findings normal Eyelids: eyelids normal Conjunctivae: conjunctivae normal Sclera: sclerae normal Cornea: corneas normal Pupils: Equal, round and reactive pupils present Resp: Effort & Inspection: normal respiratory effort and able to speak in complete sentences Auscultation: clear to auscultation bilaterally Cardio: Rate: regular rate Rhythm: regular rhythm Neuro: General: oriented to person, oriented to place, moves all extremities and CN's II-XI intact bilaterally Cranial nerves: Yes CN's II-XII intact bilaterally, Yes Facial sensation intact/muscles of mastication intact, Yes Equal, round and reactive pupils present, Yes Bilaterally intact EOM present, Yes Normal facial strength present, Yes Midline tongue present, Yes Symmetric palate elevation present, Yes Normal hearing present, Yes Ability to bilaterally rotate head present and Yes Ability to bilaterally elevate shoulders present Speech: normal speech Gait exam (Neuro): Antalgic gait present Motor exam (neuro): Pronator motor function not present, No tremor noted, Normal motor muscle tone present throughout and Motor abnormalities not present Sensory Exam: normal sensation Deep tendon reflexes (DTR's): Left triceps reflex intensity grade: 1+, Rt Biceps (C5, C6): 1+, Left biceps reflex intensity grade: 1+, Right brachioradialis reflex intensity grade: 1+, Left brachioradialis reflex intensity grade: 1+, Right patellar reflex intensity grade: 1+, Left patellar reflex intensity grade: 1+, Right ankle reflex intensity grade: 1+ and Left ankle reflex intensity grade: 1+ Psych: Appearance: grossly normal Mental Status: mental status grossly normal Speech and movement: Normal speech and movement present Affect: Labile affect present Attitude: cooperative Thought process: Circumstantial thought process present Thought content: Yes Normal thought content present Insight: Fair insight present (Psych) Judgement: Fair judgement present (Psych) Objective Data Vital Signs Vital Signs: Vital Signs - 24 hr 08/02/21 13:23 08/02/21 14:00 08/02/21 15:00 Temperature 36.7 C Pulse Rate 75 Respiratory Rate 16 Blood Pressure 147/46 H 154/62 H 141/58 H Pulse Oximetry 100 08/02/21 15:03 08/02/21 15:06 08/02/21 16:00 Temperature Pulse Rate 76 Respiratory Rate Blood Pressure 141/63 H 130/51 L Pulse Oximetry 08/02/21 20:00 08/02/21 21:46 08/03/21 00:00 Temperature 36.9 C Pulse Rate 90 77 70 Resp
[2021-08-03 16:55] LABS: Glucose Point of Care 111 mg/dl (65-105)
[2021-08-03] MEDS: SODIUM CHLORIDE 0.9% IV 1,000 ML 100 ML IV CONT (19:20)
[2021-08-03] MEDS: HALOPERIDOL 5 MG TABLET PO (21:02)
[2021-08-03] MEDS: ATORVASTATIN 40 MG TABLET PO (21:02)
[2021-08-03 21:09] LABS: Glucose Point of Care 153 mg/dl (65-105)
[2021-08-04] VITALS: PULSE 75
[2021-08-04 04:00] VITALS: PULSE 77
[2021-08-04 04:35] VITALS: BP 172/68; PULSE 79; RESP 16; TEMP 36.5; O2SAT 99
[2021-08-04] MEDS: HEPARIN SODIUM 5,000 UNITS/ML VIAL 5000 UNITS SUB-Q (05:06)
[2021-08-04] MEDS: SODIUM CHLORIDE 0.9% IV 1,000 ML 100 ML IV CONT (05:06)
[2021-08-04 05:09] LABS: Hematocrit 29.6 % (37.0-47.0); Hemoglobin 9.4 g/dL (12.0-15.0); Mean Corpuscular HGB Conc 31.8 g/dl (32-36); Mean Corpuscular Hemoglobin 29.8 pg (26-34); Mean Platelet Volume 10.5 fl (7.4-10.4); Platelet Count Result 304 k/mm3 (150-375); Red Blood Count 3.15 M/mm3 (4.2-5.4); Red Cell Distribution Width 14.8 % (11.5-14.5); White Blood Count 9.1 K/mm3 (4.5-10.0)
[2021-08-04 05:45] LABS: Anion Gap 10 mmol/L (8-16); Blood Urea Nitrogen 17 mg/dL (7-17); CRP 1.6 mg/dL (<1.0); Calcium 9.1 mg/dL (8.4-10.2); Carbon Dioxide 23 mmol/L (22-30); Chloride 110 mmol/L (98-107); Creatine Kinase 81 U/L (30-135); Estimated CRCL calculation 22 ml/min; Estimated Glomerular Filt Rate 36; Glucose 121 mg/dL (65-110); Potassium 3.8 mmol/L (3.4-5.0); Sodium 143 mmol/L (137-145)
[2021-08-04 07:52] LABS: Glucose Point of Care 114 mg/dl (65-105)
[2021-08-04 08:00] VITALS: PULSE 74
[2021-08-04] MEDS: INSULIN GLARGINE (*BKC) 100 UNITS/ML 15 UNITS SUB-Q (08:41)
[2021-08-04] MEDS: hydrALAZINE HCL 25 MG TABLET PO (08:41)
[2021-08-04] MEDS: PANTOPRAZOLE 40 MG TABLET PO (08:41)
--- NOTE | 2021-08-04 09:52 | PM.DS ---
DS: Admitting Diagnosis Discharge Date 08/04/21 Admitting Diagnosis (1) Elevated lactic acid level: Code(s): R79.89 - Other specified abnormal findings of blood chemistry Status: Acute (2) STEFANO (acute kidney injury): Code(s): N17.9 - Acute kidney failure, unspecified Status: Acute (3) Schizophrenia: Code(s): F20.9 - Schizophrenia, unspecified Status: Acute (4) Diabetes: Code(s): E11.9 - Type 2 diabetes mellitus without complications Status: Acute (5) Poor fluid intake: Code(s): R63.8 - Other symptoms and signs concerning food and fluid intake Status: Acute (6) Decreased appetite: Code(s): R63.0 - Anorexia Status: Acute (7) Weakness generalized: Code(s): R53.1 - Weakness Status: Acute (8) Hyperglycemia due to diabetes mellitus: Code(s): E11.65 - Type 2 diabetes mellitus with hyperglycemia Status: Acute (9) Near syncope: Code(s): R55 - Syncope and collapse Status: Acute DS: Discharge Diagnosis Discharge Diagnosis (1) Elevated lactic acid level: Code(s): R79.89 - Other specified abnormal findings of blood chemistry Status: Acute (2) STEFANO (acute kidney injury): Code(s): N17.9 - Acute kidney failure, unspecified Status: Acute (3) Schizophrenia: Code(s): F20.9 - Schizophrenia, unspecified Status: Acute (4) Diabetes: Code(s): E11.9 - Type 2 diabetes mellitus without complications Status: Acute (5) Poor fluid intake: Code(s): R63.8 - Other symptoms and signs concerning food and fluid intake Status: Acute (6) Decreased appetite: Code(s): R63.0 - Anorexia Status: Acute (7) Weakness generalized: Code(s): R53.1 - Weakness Status: Acute Assessment and Plan: admit to inpatient STEFANO start IRMA geller for strict Is/Os ST eval blood cultures pending ISS (8) Hyperglycemia due to diabetes mellitus: Code(s): E11.65 - Type 2 diabetes mellitus with hyperglycemia Status: Acute (9) Near syncope: Code(s): R55 - Syncope and collapse Status: Acute (10) Vertigo: Code(s): R42 - Dizziness and giddiness Status: Acute DS: Summary Hospital Course Reason for hospitalization: Recurrent falls and generalized weakness Hospital Course: 70-year-old female admitted to the hospital with chief complaint of recurrent falls. She was found to be in acute kidney injury and was noted to have vertigo precipitated by head movements. meclizine ordered for her vertigo. Patient was given fluid resuscitation in her acute kidney injury improved. She was placed on Zosyn and blood cultures were drawn as well as echocardiogram and carotid ultrasound performed. Speech therapy was consulted as well for swallowing evaluation. Patient require lower doses of insulin during hospitalization and at the time of discharge she is discharged home in stable condition with home healthcare on insulin. Her renal function was considered to have returned to her baseline. During hospitalization Neurology was consulted they did not note any focal neurological deficits and agreed with current care. Patient had improved significantly during hospitalization on Zosyn and although no source was found she was discharged home on Augmentin to complete 7 day course. Antihypertensives were also all adjusted to prevent further renal insult. Time Spent with Patient Time attestation: Total time spent providing and/or coordinating discharge services: Exam Narrative: GENERAL: Well-appearing, well-nourished, and in no acute distress. HEENT: Normocephalic, atraumatic. EOMI MMM NECK: Supple. No masses. No JVD CHEST: No respiratory distress. symmetric chest rise on RA . ABDOMEN: Soft, nontender, nondistended, normal active bowel sounds. EXTREMITIES: Normal range of motion. No edema. SKIN: Warm, dry, no rash. NEURO: No focal deficits. Alert and o
== END 2021-08-04 10:51 | disposition home or self-care (01) | DRG 684 ==
LOC: ANHED 04:13 → ANH2MED 05:04
PROVIDERS: Admitting Provider Internal Medicine; Emergency Provider Emergency Medicine; PCP Hospitalist; Visit Provider Hospitalist
DX: N17.9 Acute kidney failure, unspecified (principal); R55 Syncope and collapse; F20.9 Schizophrenia, unspecified; R42 Dizziness and giddiness; E11.42 Type 2 diabetes mellitus with diabetic polyneuropathy; E11.65 Type 2 diabetes mellitus with hyperglycemia; R79.89 Other specified abnormal findings of blood chemistry; R63.8 Other symptoms and signs concerning food and fluid intake; Z20.822 Contact with and (suspected) exposure to COVID-19; R29.6 Repeated falls; Z86.16 Personal history of COVID-19; Z89.411 Acquired absence of right great toe
CPT/HCPCS: 36415; 51702; 70450; 71045; 72125; 74176; 80048; 80053; 81001; 82550; 82948; 83605; 83735; 84100; 85025; 85027; 86140; 87040; 93005; 93306; 93880; 96361; 96365; 97110; 97116; 97161; 97165; 97535; 99285; A9270; C9803; G0378; J1644; J1815; J2543; J7030; U0003; U0005

== ENCOUNTER 2021-09-19 07:23 | Inpatient (IN) | payer MEDICARE, MEDICAID, SELFPAY ==
[2021-09-19] VITALS (11 sets, daily range): BP systolic 101–177; BP diastolic 40–102; PULSE 74–112; RESP 16–20; TEMP 36.2–37.3; O2SAT 92–95; BMI 28.5
--- NOTE | ~2021-09-19 | US_ITS ---
EXAMINATION: US renal BI DATE: 09/19/2021 17:25 INDICATION: Acute kidney injury. TECHNIQUE: Multiple ultrasound grayscale images of the kidneys were obtained. COMPARISON: CT abdomen and pelvis 07/31/2021 FINDINGS: The right kidney measures 10.4 x 3.9 x 4.9 cm. The left kidney measures 10.5 x 5.4 x 4.9 cm. The kidn eys demonstrate normal parenchymal echogenicity. There is no hydronephrosis. The bladder is distended . IMPRESSION: 1. Normal kidneys. No hydronephrosis. Reviewed, dictated and finalized at location A.
--- NOTE | ~2021-09-19 | XR_ITS ---
EXAMINATION: XR chest 1V portable EXAM DATE: 09/19/2021 10:07 INDICATION: Weakness, fever, altered mental status. TECHNIQUE: Portable AP frontal chest x-ray was obtained. Comparison is made to prior examination from 07/31/2021. FINDINGS: There is moderate amount of patchy right-sided airspace disease, likely pneumonia. No defin ite left-sided pneumonia. Consider both bacterial and viral etiologies. The cardiomediastinal silhoue tte is prominent but magnified on this AP technique. There is no pneumothorax suspected. There are no pleural effusions. There are mild bony degenerative changes. IMPRESSION: Moderate amount of patchy right-sided pneumonia. Reviewed, dictated and finalized at location B.
--- NOTE | ~2021-09-19 | XR_ITS ---
EXAMINATION: XR chest 2V DATE: 09/21/2021 09:24 INDICATION: Pneumonia and shortness of breath TECHNIQUE: AP and lateral views of the chest are obtained. COMPARISON: 09/19/2021 FINDINGS: Patchy right-sided airspace opacities persist but have improved. There is no pleural effusi on or pneumothorax. The cardiomediastinal silhouette is normal. There is moderate thoracic spondylosi s. Degenerative changes are noted in the shoulders. IMPRESSION: 1. Patchy right-sided airspace opacities with slight improvement, likely pneumonia. Reviewed, dictated and finalized at location A. IMPRESSION: 1. Patchy right-sided airspace opacities with slight improvement, likely pneumo darren.
--- NOTE | ~2021-09-19 | CT_ITS ---
EXAMINATION: CT brain wo con EXAM DATE: 09/19/2021 08:40 INDICATION: Altered mental status. TECHNIQUE: Spiral CT of the head was performed without contrast. Axial, coronal and sagittal images were reviewed. The dose-length product (DLP) for this examination was 529.67 mGy-cm. The exposure w as tailored according to patient size, and iterative reconstruction (ASIR) was used as additional dos e reduction technique. Comparison is made to prior examination from 07/31/2021. FINDINGS: There is no acute intraparenchymal hemorrhage. No evidence of intraparenchymal brain mass lesion. No evidence of acute infarction. Mild microangiopathy. There is no mass effect or midline sh ift. The ventricles are normal in size. There are no extra-axial collections. There are no acute c alvarial fractures. Patient has had bilateral ocular lens surgery. Soft tissue is unremarkable. The visualized sinuses and mastoid air cells are well aerated. IMPRESSION: 1. No acute intracranial findings. 2. Mild microangiopathy. Reviewed, dictated and finalized at location B.
--- NOTE | ~2021-09-19 | XR_ITS ---
EXAMINATION: XR hip LT 2V w AP pelvis EXAM DATE: 09/19/2021 08:50 INDICATION: Fall, left hip pain. TECHNIQUE: Left hip frontal, crosstable lateral projections for interpretation. Frontal projection pe lvis. There is no prior study for comparison. FINDINGS: Smooth left hip femoral head contour, no radiographic evidence of avascular necrosis. Ther e is mild symmetric bilateral hip primary osteoarthritis. There are no acute fractures or dislocation s identified. There is no subcutaneous gas. The soft tissue is unremarkable. There are no radiopa que foreign bodies. IMPRESSION: Mild symmetric bilateral hip osteoarthritis. No fracture. Reviewed, dictated and finalized at location B.
--- NOTE | ~2021-09-19 | CT_ITS ---
EXAMINATION: CT cervical spine wo con DATE: 09/19/2021 17:42 INDICATION: Neck pain. Fall. TECHNIQUE: Computed tomography (CT) of the cervical spine was performed without intravenous contrast. Automated exposure control and iterative reconstruction technique were employed. The dose-length pro duct was 465.92 mGy-cm. COMPARISON: CT cervical spine 07/31/2021 FINDINGS: There is kyphosis of cervical spine. Vertebral body heights are normal. There is moderately decreased disc height from C3-C4 through C5-C6 and severely decreased disc height at C6-C7 with endp late remodeling. The following disc levels are specifically discussed: C2-C3: There is moderate right and mild left uncovertebral joint osteoarthritis. There is severe bila teral facet joint osteoarthritis. There is mild left neural foraminal stenosis. There is mild central canal stenosis. C3-C4: There is severe bilateral uncovertebral joint osteoarthritis. There is moderate bilateral face t joint osteoarthritis. There is mild right and moderate left neural foraminal stenosis. There is mil d central canal stenosis. C4-C5: There is severe bilateral uncovertebral joint osteoarthritis. There is mild bilateral facet nohemi int osteoarthritis. There is mild bilateral neural foraminal stenosis. There is mild central canal st enosis. C5-C6: There is severe bilateral uncovertebral joint osteoarthritis. There is mild bilateral facet nohemi int osteoarthritis. There is moderate right and mild left neural foraminal stenosis. There is mild ce ntral canal stenosis. C6-C7: There is severe bilateral uncovertebral joint osteoarthritis. There is mild right and moderate left facet joint osteoarthritis. There is mild bilateral neural foraminal stenosis. There is mild ce ntral canal stenosis. C7-T1: There is no uncovertebral joint osteoarthritis. There is moderate right and severe left facet joint osteoarthritis. There is mild left neural foraminal stenosis. There is no central canal stenosi s. IMPRESSION: 1. No fracture. 2. Severe cervical spondylosis. Reviewed, dictated and finalized at location A.
--- NOTE | 2021-09-19 07:42 | ECG_ITS ---
Measurements Intervals [place] Rate: 92 P: 70 MA: 179 QRS: 24 QRSD: 70 T: 50 QT: 344 QTc: 427 Interpretive Statements SINUS RHYTHM WITH OCCASIONAL VENTRICULAR PREMATURE COMPLEXES BASELINE ARTIFACT COMPARED TO ECG 07/31/2021 01:24:39 NO SIGNIFICANT CHANGES Electronically Signed On 09-19-2021 15:40:30 CDT by Jacob oH M.D.
--- NOTE | 2021-09-19 07:47 | ED.AMS ---
HPI - Altered Mental Status General Chief Complaint: Altered Mental Status Stated Complaint: altered LOC Time Seen by Provider: 09/19/21 07:26 Source: EMS Mode of arrival: EMS Limitations: altered mental status History of Present Illness HPI narrative: Patient is a 7-year-old female brought in by EMS after she was found slumped in the toilet by daughter, confused with decreased responsiveness according to EMS. Patient was recently discharged from [place] yesterday. Related Data Home Medications Medication Instructions Recorded Confirmed atorvastatin 40 mg PO HS 06/23/21 07/31/21 omeprazole 20 mg PO DAILY 06/23/21 07/31/21 pregabalin 150 mg PO HS 06/23/21 07/31/21 haloperidol 5 mg PO HS 07/31/21 07/31/21 Allergies Allergy/AdvReac Type Severity Reaction Status Date / Time No Known Allergies Allergy Verified 06/23/21 16:40 Review of Systems Review of Systems: All systems reviewed & are unremarkable except as noted in HPI and below ROS unobtainable: Yes unobtainable due to mental status PMFSH Past Medical History Medical History COVID Diabetes Diabetic neuropathy Schizophrenia Surgical History Surgical History Right great toe amputee Family History Family History Mother Family history unknown Father Heart attack Social History Social History Smoking status: Never smoker Alcohol intake: never Substance use: never Substance use type: does not use Gender identity (if verbalized by the patient): Female Sexual Orientation (if Verbalized by the Patient): Straight or Heterosexual Spiritual care concerns: No Exam Const: General: cooperative, comfortable, well developed, alert and awake; No confusion Orientation/consciousness: oriented to person Limitations: no limitations HENMT: Head: normal to inspection, normocephalic and atraumatic Ears: hearing grossly normal bilaterally, TM normal on the right and TM normal on the left General nose exam: Normal external nose present, Normal nares present and No nasal discharge present Face and sinus: normal facial exam Mouth: Yes Normal oral and palatal mucosa present, Yes lip normal, Yes tongue normal and Yes oropharynx normal Throat: posterior oropharynx normal, tonsils normal and uvula midline Eyes: General: appearance normal, both eyes and all related structures Pupils: Equal, round and reactive pupils present EOM: EOMs intact bilaterally Neck: Neck: normal visual inspection, full ROM, no lymphadenopathy and no meningeal signs Chest: Chest palpation & inspection: normal inspection of the chest Resp: Effort & Inspection: normal respiratory effort, able to speak in complete sentences, no respiratory distress and not tachypneic Auscultation: clear to auscultation bilaterally, no crackles, no rales, no rhonchi and no wheezes Cardio: Rate: regular rate Rhythm: regular rhythm GI: Inspection: normal to inspection GI Palp: No abdominal tenderness, Yes Soft to palpation, No Tenderness to palpation present (GI), No Guarding due to palpation present (GI), No Rigid due to palpation and No Rebound tenderness present Auscultation: normal bowel sounds : General: Yes no CVA tenderness Back/Spine/Pelvis: Back: no CVA tenderness Skin: General skin exam: normal color, no rashes or lesions noted, elasticity normal and turgor normal Neuro: General: oriented to person, tone normal and moves all extremities Sensory Exam: No Sensory deficit (Neuro) Other: Not oriented x2, unable to follow any commands Extrem: General: normal to inspection, full ROM and capillary refill normal Psych: Appearance: grossly normal and well kempt Course Vital Signs Vital signs: Vital Signs Temperature 37.0 C 09/19/21 08:09 Pulse Rate 89 09/19/21
--- NOTE | 2021-09-19 08:34 | PC.NURSE ---
IV ems inserted infiltrated. catheter removed intact. multiple tries for IV access and blood work without success. pt to CT and xray at this time. will have another RN attempt IV and blood work when back from CT and Xray.
[2021-09-19 08:43] LABS: Appearance Urine Clear (Clear); Bilirubin Urine Negative (Negative); Blood Urine Negative (Negative); Color Urine Yellow (Yellow); Glucose Urine UA Negative (Negative); Ketones Urine Negative (Negative); Leukocyte Esterase Ur 1+ LEU/UL (Negative); Nitrate Urine Negative (Negative); Protein Urine 2+ mg/dL (Negative); Urobilinogen Urine 0.2 mg/dL (<2.0)
[2021-09-19 08:46] LABS: Add Urine Microscopic? YES
[2021-09-19 09:01] LABS: RBC Urine 0-2 /hpf (0-2)
[2021-09-19] MEDS: LACTATED RINGERS 1,000 ML 999 ML IV CONT (09:21)
[2021-09-19 09:30] LABS: Basophils Absolute Auto 0.1 K/mm3 (0.0-0.1); Basophils Percent Auto 0.3 % (0.2-1.2); Eosinophils Percent Auto 0.2 % (0-4.4); Hematocrit 28.6 % (37.0-47.0); Hemoglobin 8.9 g/dL (12.0-15.0); Immature Granulocyte Absolute 0.07 K/mm3 (0.00-0.031); Immature Granulocyte Percent A 0.4 % (0-0.5); Lymphocytes Percent Auto 6.9 % (18.3-44.2); Mean Corpuscular HGB Conc 31.1 g/dl (32-36); Mean Corpuscular Volume 96.3 fl (80-100); Mean Platelet Volume 10.8 fl (7.4-10.4); Monocytes Percent Auto 5.1 % (2.6-8.5); Neutrophils Absolute Auto 16.3 K/mm3 (1.3-6.7); Neutrophils Percent Auto 87.1 % (45.5-73.1); Platelet Count Result 387 k/mm3 (150-375); Red Blood Count 2.97 M/mm3 (4.2-5.4); Red Cell Distribution Width 16.4 % (11.5-14.5); White Blood Count 18.7 K/mm3 (4.5-10.0)
[2021-09-19 09:38] LABS: Lactic Acid Reflex 1.5 mmol/L (0.7-2.1); Prothrombin Time 12.8 Seconds (11.1-14.7)
[2021-09-19 09:39] LABS: Alanine Aminotransferase 36 U/L (4-35); Albumin Level 4.2 g/dL (3.5-5.1); Alkaline Phosphatase 179 U/L (38-126); Anion Gap 10 mmol/L (8-16); Aspartate Amino Transferase 52 U/L (14-36); Bilirubin,Total 0.3 mg/dL (0.2-1.3); Blood Urea Nitrogen 97 mg/dL (7-17); Calcium 9.7 mg/dL (8.4-10.2); Carbon Dioxide 26 mmol/L (22-30); Chloride 103 mmol/L (98-107); Estimated CRCL calculation 17 ml/min; Estimated Glomerular Filt Rate 22; Glucose 281 mg/dL (65-110); Partial Thromboplastin Time 25.1 SECONDS (22.3-36.8); Potassium 5.4 mmol/L (3.4-5.0); Sodium 139 mmol/L (137-145)
[2021-09-19 09:50] LABS: Troponin I < 0.012 ng/mL (0.000-0.034)
--- NOTE | 2021-09-19 10:01 | PC.NURSE ---
cleaned dried stool off of pt's legs, hands, face and buttox. pt placed in fresh gown w/ new sheets and diaper. pt resting comfortably in stretcher w/ call light in reach.
[2021-09-19] MEDS: cefTRIAXone 2 GM in SODIUM CHLORIDE 0.9% IV 100 ML 200 ML IVPB (10:29)
[2021-09-19] MEDS: ALBUTEROL SULFATE NEB 2.5 MG/0.5 ML INH 5 MG INHALATION (11:35)
[2021-09-19 13:01] LABS: SARS-CoV-2 RNA PCR Negative
--- NOTE | 2021-09-19 13:11 | PC.NURSE ---
This patient, Barbara Chakraborty, was admitted to IMU Room 210-01. Patient/family oriented to hospital policies and general routines including ID bracelet, bed and alarms, visiting hours, pain management, procedures, bathroom and other care routines, personal items, smoking policy, room service/diet, and visiting hours. Information on how to activate the Rapid Response Team has been discussed. Patient/Family are encouraged to report perceived risks to care and to ask questions if they do not understand what they are told or what they should do.
[2021-09-19] MEDS: LACTATED RINGERS 1,000 ML 125 ML IV CONT (13:35)
--- NOTE | 2021-09-19 14:40 | PM.IMHP ---
H&P: HPI History of Present Illness Date/Time: 09/19/21 14:40 Chief Complaint: Altered mentals status Narrative: 70yo female with schizophrenia, DM and recently discharged from [facility] here for altered mental status. Patient was discharged from [facility] yesterday for unclear reasons. Patient is more alert but confused and unable to provide history. Called and left message with daughter. A majority information is obtained from chart. Patient was brought in by EMS after she was found slumped over on the toilet by the daughter. Patient was confused with decreased responsive. She was brought to emergency room for evaluation. In the emergency room, patient was hemodynamically stable. Patient was noted to have a Hgb 8.9, BUN 97 and Cr 2.6. WBC 18.7 with normal lactic acid level. COVID negative. CT head negative, CXR showing moderate right sided PNA and hip OA but no fevers. EKG reviewed showing PVCs and no change from prior. Trop negative. She was started on LR and given Rocephiin and Azithromycin. Vanco added. Albuterol was given for the hyperkalemia. She was admitted for further care. Patient did call back and provide the folowing hx. Patient was hospitalized here 07/31-08/04/21 for falls and found to have STEFANO. Cr was 3.9 and improved to 1.7 at discharge. She was discharged home. Patient hospitalized at [facility] after that hospitalization for 1 week for fluid overload. She has history of falls. [facility] diagnosed with Stage IV kidney disease. Medications were adjusted. Patient was discharged to a SNF. She was discharged from the facility around 09/04 but required re-hospitalization at [facility] on 09/06. Patient returned to [facility] on 09/06 for 'fluid overloaded' and was hospitalized for almost 2 weeks. Patient was diuresed which she tolerated. Cr 2.3 at discharge. Not treated for infection. Echo was performed. She was discharged home in the evening hours of 09/18. Home yesterday at 7pm. No problems overnight. Patient was found down on the floor this morning covered with feces. The family helped her to the BR but she had trouble walking to the BR. Stools were black and tarry. Dark stools noted at [facility] as well but no GI evaluation was performed. Patient did complain of chest and back pain as well. Review of Systems Review of Systems: ROS unobtainable: Yes unobtainable due to mental status PMFSH Past Medical History Medical History (Updated 09/19/21 @ 16:17 by Joel Dennison MD) CKD (chronic kidney disease) COVID Jun 2021 Dementia Diabetes Diabetic neuropathy Schizophrenia Surgical History Surgical History (Updated 09/19/21 @ 15:24 by Joel Dennison MD) Hx of section Right great toe amputee Family History Family History Mother Family history unknown Father Heart attack Social History Social History (Updated 09/19/21 @ 15:24 by Jole Dennison MD) Social History: Lives with daughter and grandson. Lifelong nonsmoker. No alcohol or drug use. Full code. No POA but Dafne Gayle is the child that makes the patient's medical decision. Smoking status: Never smoker Alcohol intake: unknown Substance use: unknown Substance use type: does not use Gender identity (if verbalized by the patient): Female Sexual Orientation (if Verbalized by the Patient): Straight or Heterosexual Spiritual care concerns: No Meds Home Medications and Allergies Home Medications Medication Instructions Recorded Confirmed Type atorvastatin 40 mg PO HS 06/23/21 09/19/21 History pregabalin 150 mg PO HS 06/23/21 09/19/21 History Lantus Solostar U-100 Insulin 25 unit SUBCUT HS 09/19/21 09/19/21 History acetaminophen 650 mg PO Q6H PRN 09/19/21 09/19/21 History amlodipine 10 mg PO DAILY 09/19/21 09/19/21 History carvedilol 12.5 mg PO Q12H 09/19/21 09/19/21 History dulaglutide [Trulicity] 0.75 mg SUBCUT WEEKLY 09/19/21 09/19/21 History famotidine [Pepcid] 20 mg PO DA
[2021-09-19 16:54] LABS: Hematocrit 26.5 % (37.0-47.0); Hemoglobin 8.4 g/dL (12.0-15.0)
[2021-09-19 17:03] LABS: Creatine Kinase 148 U/L (30-135)
[2021-09-19 17:04] LABS: Ammonia < 9 umol/L (9-30)
[2021-09-19 17:04] LABS: Hemoglobin A1C 7.5 % (<5.7)
[2021-09-19 17:05] LABS: Anion Gap 9 mmol/L (8-16); Blood Urea Nitrogen 88 mg/dL (7-17); Calcium 9.5 mg/dL (8.4-10.2); Carbon Dioxide 27 mmol/L (22-30); Chloride 103 mmol/L (98-107); Estimated CRCL calculation 19 ml/min; Estimated Glomerular Filt Rate 25; Glucose 258 mg/dL (65-110); Potassium 5.1 mmol/L (3.4-5.0); Sodium 139 mmol/L (137-145)
[2021-09-19 17:14] LABS: Glucose Point of Care 214 mg/dl (65-105)
[2021-09-19 17:14] LABS: NT Pro B Type Natriuretic Pept 404 pg/mL (5-100)
[2021-09-19] MEDS: INSULIN ASPART (*BKC) 100 UNITS/ML SUB-Q (18:02)
[2021-09-19 18:11] LABS: Folic Acid 10.1 ng/mL (2.76->20)
[2021-09-19] MEDS: PANTOPRAZOLE SODIUM IV 40 MG VIAL IV PUSH (21:16)
[2021-09-19 22:36] LABS: Hematocrit 23.1 % (37.0-47.0); Hemoglobin 7.3 g/dL (12.0-15.0)
[2021-09-20] VITALS (18 sets, daily range): BP systolic 114–141; BP diastolic 42–62; PULSE 71–87; RESP 18–20; TEMP 35.9–36.6; O2SAT 95–99; BMI 28.3
[2021-09-20 00:08] LABS: Glucose Point of Care 123 mg/dl (65-105)
[2021-09-20 00:26] LABS: Creatinine Urine 38.9 mg/dL
[2021-09-20 00:41] LABS: Amphetamine Screen Urine Negative (Negative); Barbiturate Screen Urine Negative (Negative); Benzodiazepines Screen Urine Negative (Negative); Cannabinoid Screen Urine Negative (Negative); Cocaine Screen Urine Negative (Negative); Methadone Screen Urine Negative (Negative); Opiate Screen Urine Negative (Negative); Phencyclidine Screen Urine Negative (Negative)
[2021-09-20 00:50] LABS: Sodium Urine Random 60 meq/L
[2021-09-20 01:15] LABS: Eosinophil Urine None Seen % (None Seen)
[2021-09-20] MEDS: LACTATED RINGERS 1,000 ML 70 ML IV CONT (04:24)
[2021-09-20 04:56] LABS: Basophils Absolute Auto 0.1 K/mm3 (0.0-0.1); Basophils Percent Auto 0.3 % (0.2-1.2); Eosinophils Absolute Auto 0.2 K/mm3 (0-0.3); Hematocrit 24.9 % (37.0-47.0); Hemoglobin 7.8 g/dL (12.0-15.0); Immature Granulocyte Absolute 0.05 K/mm3 (0.00-0.031); Immature Granulocyte Percent A 0.3 % (0-0.5); Lymphocytes Absolute Auto 2.31 K/mm3 (0.9-3.2); Lymphocytes Percent Auto 12.9 % (18.3-44.2); Mean Corpuscular HGB Conc 31.3 g/dl (32-36); Mean Corpuscular Hemoglobin 30.4 pg (26-34); Mean Corpuscular Volume 96.9 fl (80-100); Mean Platelet Volume 10.9 fl (7.4-10.4); Monocytes Absolute Auto 1.1 K/mm3 (0.1-0.6); Monocytes Percent Auto 5.9 % (2.6-8.5); Neutrophils Absolute Auto 14.3 K/mm3 (1.3-6.7); Neutrophils Percent Auto 79.6 % (45.5-73.1); Platelet Count Result 321 k/mm3 (150-375); Red Blood Count 2.57 M/mm3 (4.2-5.4); Red Cell Distribution Width 16.5 % (11.5-14.5)
[2021-09-20 05:19] LABS: Alanine Aminotransferase 29 U/L (4-35); Albumin Level 3.5 g/dL (3.5-5.1); Alkaline Phosphatase 97 U/L (38-126); Anion Gap 7 mmol/L (8-16); Aspartate Amino Transferase 27 U/L (14-36); Bilirubin,Total 0.5 mg/dL (0.2-1.3); Blood Urea Nitrogen 77 mg/dL (7-17); Calcium 9.2 mg/dL (8.4-10.2); Carbon Dioxide 27 mmol/L (22-30); Chloride 106 mmol/L (98-107); Estimated CRCL calculation 21 ml/min; Estimated Glomerular Filt Rate 28; Glucose 135 mg/dL (65-110); Magnesium 2.5 mg/dL (1.6-2.3); Phosphorus 4.4 mg/dL (2.5-4.5); Potassium 4.2 mmol/L (3.4-5.0); Sodium 140 mmol/L (137-145)
[2021-09-20] MEDS: PANTOPRAZOLE SODIUM IV 40 MG VIAL IV PUSH ×2 (08:56→20:51)
[2021-09-20] MEDS: MULTIVITAMINS THERAPEUTIC TAB (*BKC) 1 TABLET PO (08:56)
[2021-09-20] MEDS: FERROUS SULFATE 324 MG TABLET PO (08:56)
--- NOTE | 2021-09-20 08:58 | PCSTNOTE ---
Please refer to the Bedside Swallow Evaluation in the EMR. Please note, silent aspiration cannot be ruled out at bedside.
[2021-09-20] MEDS: LIDOCAINE 5% PATCH 1 PATCH TOPICAL (09:04)
[2021-09-20 11:13] LABS: Rapid Plasma Reagin Non-Reactive (NonReactive)
[2021-09-20 12:04] LABS: Glucose Point of Care 323 mg/dl (65-105)
[2021-09-20] MEDS: INSULIN ASPART (*BKC) 100 UNITS/ML SUB-Q ×2 (12:21→18:16)
--- NOTE | 2021-09-20 14:12 | PM.IMPN ---
Progress Note: A&P Assessment and Plan (1) Sepsis: Qualifiers: Sepsis acute organ dysfunction status: unspecified Sepsis type: sepsis due to unspecified organism Qualified Code(s): A41.9 - Sepsis, unspecified organism Code(s): A41.9 - Sepsis, unspecified organism Status: Acute Assessment and Plan: Concerning for severe sepsis with organ involvement. Patient has acute kidney injury as well as altered mental status and elevated liver enzymes. Concern for pneumonia as the etiology. BCx NGTD. UCx pending. Follow-up on cultures. Continue IV antibiotics. No old records from [place] yet (asked nursing to request old records but no order in chart so will place order now) (2) Hyperkalemia: Code(s): E87.5 - Hyperkalemia Status: Acute Assessment and Plan: Potassium elevated at 5.4. Related to the acute kidney injury. No EKG changes. She received albuterol once. Repeat potassium normal now. Resolved (3) Pneumonia: Qualifiers: Aspiration pneumonia type: unspecified Laterality: right Lung location: unspecified part of lung Code(s): J18.9 - Pneumonia, unspecified organism Status: Acute Assessment and Plan: Chest x-ray on admission showing patchy right-sided pneumonia. Possibly pneumonia but no fever but with elevated WBC. BNP was 404 and feel CHF less likely. Given the concern for pneumonia and recent hospitalization, abx started for hospital acquired pneumonia. She passed her bedside swallow so aspiration pneumonia less likely. Follow-up on cultures. Monitor WBC. Continue to monitor. (4) STEFANO (acute kidney injury): Code(s): N17.9 - Acute kidney failure, unspecified Status: Acute Assessment and Plan: Creatinine at time of last discharge here was 1.7. Daughter believes last creatinine at [facility] at time of discharge was 2.3. Creatinine 2.6 here. IV fluids were started and Cr better at 2.1 Concern for GI bleed given the elevated BUN but HH stable. Stool guaiac ordered. Continue PPI treatment. Stop IV fluids and monitor renal function. Resume Lasix at lower dose if renal function remains stable to avoid fluid overload. Add back low dose Coreg. Advance as tolerated (5) Altered mental status: Qualifiers: Altered mental status type: unspecified Qualified Code(s): R41.82 - Altered mental status, unspecified Code(s): R41.82 - Altered mental status, unspecified Status: Acute Assessment and Plan: Patient has altered mental status. Etiology unclear. Daughter states patient was out of her Risperdal when she returned home from [place]. UDS was negative. Patient could be taking medications incorrectly. AMS may be related to uremia with the elevated BUN. CT the brain and C-spine showed no acute findings. Ammonia negative; RPR nonreacitve; TSH, folate and B12 normal. Suspect related to uremia and her dementia. Placement might be a better option for this patient. Continue PT/OT (6) Diabetes: Code(s): E11.9 - Type 2 diabetes mellitus without complications Status: Acute Assessment and Plan: A1c 7.5. Patient has diabetes with diabetic neuropathy. Glucose was elevated on admission. Continue sliding scale protocol. Hypoglycemia protocol available as needed. Add lantus now that she is eating. (7) CKD (chronic kidney disease): Code(s): N18.9 - Chronic kidney disease, unspecified Status: Acute Assessment and Plan: Patient has CKD with fluctuating baseline. True baseline is unclear but suspect it is in the low 2 range. Treatment as above. (8) Schizophrenia: Code(s): F20.9 - Schizophrenia, unspecified Status: Acute Assessment and Plan: Patient on risperidone which will resume. Monitor (9) Dementia: Code(s): F03.90 - Unspecified dementia without behavioral disturbance Status: Acute Assessment and Plan: Patient has underlying
[2021-09-20 16:24] LABS: Glucose Point of Care 310 mg/dl (65-105)
[2021-09-20 20:26] LABS: Glucose Point of Care 264 mg/dl (65-105)
[2021-09-20] MEDS: INSULIN GLARGINE (*BKC) 100 UNITS/ML 20 UNITS SUB-Q (20:50)
[2021-09-20] MEDS: carvediloL 3.125 MG TABLET PO (20:51)
[2021-09-20] MEDS: risperiDONE 1 MG TABLET 2 MG PO (20:51)
[2021-09-20] MEDS: ATORVASTATIN 40 MG TABLET PO (20:51)
[2021-09-20] MEDS: PREGABALIN (*CRX) 75 MG CAPSULE 150 MG PO (20:51)
[2021-09-21] VITALS (12 sets, daily range): BP systolic 114–153; BP diastolic 52–69; PULSE 66–77; RESP 14–18; TEMP 35.9–36.9; O2SAT 97–100
[2021-09-21 05:28] LABS: Basophils Absolute Auto 0.1 K/mm3 (0.0-0.1); Basophils Percent Auto 0.4 % (0.2-1.2); Eosinophils Absolute Auto 0.3 K/mm3 (0-0.3); Eosinophils Percent Auto 2.2 % (0-4.4); Hematocrit 22.7 % (37.0-47.0); Hemoglobin 7.1 g/dL (12.0-15.0); Immature Granulocyte Absolute 0.04 K/mm3 (0.00-0.031); Immature Granulocyte Percent A 0.3 % (0-0.5); Lymphocytes Absolute Auto 2.55 K/mm3 (0.9-3.2); Lymphocytes Percent Auto 22.3 % (18.3-44.2); Mean Corpuscular HGB Conc 31.3 g/dl (32-36); Mean Corpuscular Hemoglobin 30.1 pg (26-34); Mean Corpuscular Volume 96.2 fl (80-100); Mean Platelet Volume 11.2 fl (7.4-10.4); Monocytes Absolute Auto 0.9 K/mm3 (0.1-0.6); Monocytes Percent Auto 7.7 % (2.6-8.5); Neutrophils Absolute Auto 7.7 K/mm3 (1.3-6.7); Neutrophils Percent Auto 67.1 % (45.5-73.1); Platelet Count Result 289 k/mm3 (150-375); Red Blood Count 2.36 M/mm3 (4.2-5.4); Red Cell Distribution Width 16.4 % (11.5-14.5); White Blood Count 11.4 K/mm3 (4.5-10.0)
[2021-09-21 05:37] LABS: Albumin Level 3.4 g/dL (3.5-5.1); Anion Gap 7 mmol/L (8-16); Blood Urea Nitrogen 67 mg/dL (7-17); Calcium 8.9 mg/dL (8.4-10.2); Carbon Dioxide 26 mmol/L (22-30); Chloride 107 mmol/L (98-107); Estimated CRCL calculation 20 ml/min; Estimated Glomerular Filt Rate 27; Glucose 218 mg/dL (65-110); Magnesium 2.7 mg/dL (1.6-2.3); Phosphorus 4.9 mg/dL (2.5-4.5); Potassium 3.9 mmol/L (3.4-5.0); Sodium 140 mmol/L (137-145)
[2021-09-21 08:28] LABS: Glucose Point of Care 171 mg/dl (65-105)
[2021-09-21] MEDS: carvediloL 3.125 MG TABLET PO ×2 (09:35→20:23)
[2021-09-21] MEDS: LIDOCAINE 5% PATCH 1 PATCH TOPICAL (09:35)
[2021-09-21] MEDS: PANTOPRAZOLE SODIUM IV 40 MG VIAL IV PUSH ×2 (09:35→20:24)
[2021-09-21] MEDS: FERROUS SULFATE 324 MG TABLET PO (09:35)
[2021-09-21] MEDS: MULTIVITAMINS THERAPEUTIC TAB (*BKC) 1 TABLET PO (09:35)
--- NOTE | 2021-09-21 10:17 | PM.IMPN ---
Progress Note: A&P Assessment and Plan (1) Sepsis: Qualifiers: Sepsis acute organ dysfunction status: unspecified Sepsis type: sepsis due to unspecified organism Qualified Code(s): A41.9 - Sepsis, unspecified organism Code(s): A41.9 - Sepsis, unspecified organism Status: Acute Assessment and Plan: Concerning for severe sepsis with organ involvement. Patient has acute kidney injury as well as altered mental status and elevated liver enzymes. Concern for pneumonia as the etiology. BCx NGTD. UCx pending. Follow-up on cultures. Continue IV antibiotics. old records from [facility] leukocytosis improved (2) Hyperkalemia: Code(s): E87.5 - Hyperkalemia Status: Acute Assessment and Plan: Potassium elevated at 5.4. Related to the acute kidney injury. No EKG changes. She received albuterol once. Repeat potassium normal now. Resolved (3) Pneumonia: Qualifiers: Aspiration pneumonia type: unspecified Laterality: right Lung location: unspecified part of lung Code(s): J18.9 - Pneumonia, unspecified organism Status: Acute Assessment and Plan: Chest x-ray on admission showing patchy right-sided pneumonia. Probable pneumonia continue IV antibiotic (4) STEFANO (acute kidney injury): Code(s): N17.9 - Acute kidney failure, unspecified Status: Acute Assessment and Plan: Creatinine at time of last discharge here was 1.7. Daughter believes last creatinine at [facility] at time of discharge was 2.3. Creatinine 2.6 here. IV fluids were started and Cr better Concern for GI bleed given the elevated BUN but HH stable. Stool guaiac Continue PPI treatment. Stop IV fluids and monitor renal function. Resume Lasix today (5) Altered mental status: Qualifiers: Altered mental status type: unspecified Qualified Code(s): R41.82 - Altered mental status, unspecified Code(s): R41.82 - Altered mental status, unspecified Status: Acute Assessment and Plan: Patient has altered mental status. Etiology unclear. Daughter states patient was out of her Risperdal when she returned home from [facility]. UDS was negative. Patient could be taking medications incorrectly. AMS may be related to uremia with the elevated BUN. CT the brain and C-spine showed no acute findings. Ammonia negative; RPR nonreacitve; TSH, folate and B12 normal. Suspect related to uremia and her dementia. Placement might be a better option for this patient. Continue PT/OT (6) Diabetes: Code(s): E11.9 - Type 2 diabetes mellitus without complications Status: Acute Assessment and Plan: A1c 7.5. Patient has diabetes with diabetic neuropathy. Glucose was elevated on admission. Continue sliding scale protocol. Hypoglycemia protocol available as needed. Continue Lantus (7) CKD (chronic kidney disease): Code(s): N18.9 - Chronic kidney disease, unspecified Status: Acute Assessment and Plan: Patient has CKD with fluctuating baseline. True baseline is unclear but suspect it is in the low 2 range. Treatment as above. (8) Schizophrenia: Code(s): F20.9 - Schizophrenia, unspecified Status: Acute Assessment and Plan: Patient on risperidone which will resume. Monitor (9) Dementia: Code(s): F03.90 - Unspecified dementia without behavioral disturbance Status: Acute Assessment and Plan: Patient has underlying dementia per daughter. Continue to monitor. (10) DVT prophylaxis: Code(s): Z29.9 - Encounter for prophylactic measures, unspecified Status: Acute Assessment and Plan: SCDs Subjective Date/time seen: 09/21/21 10:17 Interval history: 70yo female with schizophrenia, DM and recently discharged from [facility] here for altered mental status. Patient seen and examined Patient feels better today she is more alert shortness of breath has improved Patient d
[2021-09-21] MEDS: FUROSEMIDE 20 MG TABLET PO ×2 (11:57→17:18)
[2021-09-21 12:36] LABS: Glucose Point of Care 270 mg/dl (65-105)
[2021-09-21] MEDS: INSULIN ASPART (*BKC) 100 UNITS/ML SUB-Q ×3 (12:45→17:19)
[2021-09-21 16:13] LABS: Glucose Point of Care 242 mg/dl (65-105)
--- NOTE | 2021-09-21 17:53 | PC.NURSE ---
This patient, Barbara Chakraborty, was transferred to [facility] on 09/21/21 at 1745. Personal belongings sent with patient. Report given to Sandra LAY. Appropriate documentation sent with patient.
--- NOTE | 2021-09-21 17:59 | PC.NURSE ---
This patient, Barbara Chakraborty, was received from [IMU ] on 09/21/21 at 1755. Patient/family oriented to unit policies and routines
[2021-09-21] MEDS: ATORVASTATIN 40 MG TABLET PO (20:23)
[2021-09-21] MEDS: risperiDONE 1 MG TABLET 2 MG PO (20:24)
[2021-09-21] MEDS: INSULIN GLARGINE (*BKC) 100 UNITS/ML 25 UNITS SUB-Q (20:27)
[2021-09-21] MEDS: PREGABALIN (*CRX) 75 MG CAPSULE 150 MG PO (20:29)
[2021-09-21 21:16] LABS: Glucose Point of Care 247 mg/dl (65-105)
[2021-09-22] VITALS (14 sets, daily range): BP systolic 125–151; BP diastolic 47–63; PULSE 67–78; RESP 14–18; TEMP 36–36.7; O2SAT 94–100
[2021-09-22 00:45] LABS: IFOB Positive Control Positive; Immunochemical Fecal Occult Bl Negative (N)
[2021-09-22 07:51] LABS: Glucose Point of Care 236 mg/dl (65-105)
[2021-09-22] MEDS: INSULIN ASPART (*BKC) 100 UNITS/ML SUB-Q ×2 (08:13→08:14)
[2021-09-22] MEDS: FUROSEMIDE 20 MG TABLET PO ×2 (08:15→16:44)
[2021-09-22] MEDS: PANTOPRAZOLE SODIUM IV 40 MG VIAL IV PUSH ×2 (08:15→20:41)
[2021-09-22] MEDS: FERROUS SULFATE 324 MG TABLET PO (08:16)
[2021-09-22] MEDS: carvediloL 3.125 MG TABLET PO ×2 (08:16→20:40)
[2021-09-22] MEDS: MULTIVITAMINS THERAPEUTIC TAB (*BKC) 1 TABLET PO (08:16)
[2021-09-22] MEDS: LIDOCAINE 5% PATCH 1 PATCH TOPICAL (08:17)
--- NOTE | 2021-09-22 09:46 | PM.IMPN ---
Progress Note: A&P Assessment and Plan (1) Sepsis: Qualifiers: Sepsis acute organ dysfunction status: unspecified Sepsis type: sepsis due to unspecified organism Qualified Code(s): A41.9 - Sepsis, unspecified organism Code(s): A41.9 - Sepsis, unspecified organism Status: Acute Assessment and Plan: Concerning for severe sepsis with organ involvement. Patient has acute kidney injury as well as altered mental status and elevated liver enzymes. Concern for pneumonia as the etiology. BCx NGTD. UCx negative. Follow-up on cultures. Antibiotic was adjusted to Rocephin and azithromycin. old records from [facility] leukocytosis improved (2) Hyperkalemia: Code(s): E87.5 - Hyperkalemia Status: Acute Assessment and Plan: Potassium elevated at 5.4. Related to the acute kidney injury. No EKG changes. She received albuterol once. Repeat potassium normal now. Resolved (3) Pneumonia: Qualifiers: Aspiration pneumonia type: unspecified Laterality: right Lung location: unspecified part of lung Code(s): J18.9 - Pneumonia, unspecified organism Status: Acute Assessment and Plan: Chest x-ray on admission showing patchy right-sided pneumonia. Probable pneumonia continue IV antibiotic (4) STEFANO (acute kidney injury): Code(s): N17.9 - Acute kidney failure, unspecified Status: Acute Assessment and Plan: Creatinine at time of last discharge here was 1.7. Daughter believes last creatinine at [facility] at time of discharge was 2.3. Creatinine 2.6 here. IV fluids were started and Cr better Concern for GI bleed given the elevated BUN but HH stable. Stool guaiac Continue PPI treatment. Stop IV fluids and monitor renal function. Resume Lasix pending repeat CMP from today (5) Altered mental status: Qualifiers: Altered mental status type: unspecified Qualified Code(s): R41.82 - Altered mental status, unspecified Code(s): R41.82 - Altered mental status, unspecified Status: Acute Assessment and Plan: Patient has altered mental status. Etiology unclear. Daughter states patient was out of her Risperdal when she returned home from [facility]. UDS was negative. Patient could be taking medications incorrectly. AMS may be related to uremia with the elevated BUN. CT the brain and C-spine showed no acute findings. Ammonia negative; RPR nonreacitve; TSH, folate and B12 normal. Suspect related to uremia and her dementia. Placement might be a better option for this patient. Continue PT/OT (6) Diabetes: Code(s): E11.9 - Type 2 diabetes mellitus without complications Status: Acute Assessment and Plan: A1c 7.5. Patient has diabetes with diabetic neuropathy. Glucose was elevated on admission. Continue sliding scale protocol. Hypoglycemia protocol available as needed. Continue Lantus Medication adjusted today (7) CKD (chronic kidney disease): Code(s): N18.9 - Chronic kidney disease, unspecified Status: Acute Assessment and Plan: Patient has CKD with fluctuating baseline. True baseline is unclear but suspect it is in the low 2 range. Treatment as above. (8) Schizophrenia: Code(s): F20.9 - Schizophrenia, unspecified Status: Acute Assessment and Plan: Patient on risperidone which will resume. Monitor (9) Dementia: Code(s): F03.90 - Unspecified dementia without behavioral disturbance Status: Acute Assessment and Plan: Patient has underlying dementia per daughter. Continue to monitor. (10) DVT prophylaxis: Code(s): Z29.9 - Encounter for prophylactic measures, unspecified Status: Acute Assessment and Plan: SCDs Subjective Date/time seen: 09/22/21 09:46 Interval history: 70yo female with schizophrenia, DM and recently discharged from [facility] here for altered mental status. Patient seen and examined Deandre
[2021-09-22] MEDS: AZITHROMYCIN 250 MG TABLET 500 MG PO (10:16)
[2021-09-22 10:39] LABS: Basophils Percent Auto 0.3 % (0.2-1.2); Eosinophils Absolute Auto 0.3 K/mm3 (0-0.3); Eosinophils Percent Auto 2.8 % (0-4.4); Hematocrit 26.9 % (37.0-47.0); Hemoglobin 8.2 g/dL (12.0-15.0); Immature Granulocyte Absolute 0.03 K/mm3 (0.00-0.031); Immature Granulocyte Percent A 0.3 % (0-0.5); Lymphocytes Absolute Auto 2.24 K/mm3 (0.9-3.2); Lymphocytes Percent Auto 21.9 % (18.3-44.2); Mean Corpuscular HGB Conc 30.5 g/dl (32-36); Mean Corpuscular Hemoglobin 29.6 pg (26-34); Mean Corpuscular Volume 97.1 fl (80-100); Mean Platelet Volume 10.7 fl (7.4-10.4); Monocytes Absolute Auto 0.7 K/mm3 (0.1-0.6); Monocytes Percent Auto 6.7 % (2.6-8.5); Platelet Count Result 341 k/mm3 (150-375); Red Blood Count 2.77 M/mm3 (4.2-5.4); Red Cell Distribution Width 16.1 % (11.5-14.5); White Blood Count 10.3 K/mm3 (4.5-10.0)
[2021-09-22 10:50] LABS: Alanine Aminotransferase 24 U/L (4-35); Albumin Level 4.1 g/dL (3.5-5.1); Alkaline Phosphatase 130 U/L (38-126); Anion Gap 9 mmol/L (8-16); Aspartate Amino Transferase 24 U/L (14-36); Bilirubin,Total 0.4 mg/dL (0.2-1.3); Blood Urea Nitrogen 59 mg/dL (7-17); Calcium 9.2 mg/dL (8.4-10.2); Carbon Dioxide 26 mmol/L (22-30); Chloride 106 mmol/L (98-107); Estimated CRCL calculation 24 ml/min; Estimated Glomerular Filt Rate 34; Glucose 207 mg/dL (65-110); Potassium 4.6 mmol/L (3.4-5.0); Sodium 141 mmol/L (137-145)
[2021-09-22 10:54] LABS: Vancomycin Trough 10.9 ug/mL (10.0-20.0)
[2021-09-22] MEDS: INSULIN ASPART (*BKC) 100 UNITS/ML 8 UNITS SUB-Q ×2 (11:39→16:42)
[2021-09-22 11:40] LABS: Glucose Point of Care 200 mg/dl (65-105)
[2021-09-22 16:40] LABS: Glucose Point of Care 154 mg/dl (65-105)
[2021-09-22 20:21] LABS: Glucose Point of Care 242 mg/dl (65-105)
[2021-09-22] MEDS: risperiDONE 1 MG TABLET 2 MG PO (20:40)
[2021-09-22] MEDS: PREGABALIN (*CRX) 75 MG CAPSULE 150 MG PO (20:40)
[2021-09-22] MEDS: INSULIN GLARGINE (*BKC) 100 UNITS/ML 25 UNITS SUB-Q (20:41)
[2021-09-22] MEDS: ATORVASTATIN 40 MG TABLET PO (20:41)
[2021-09-23] VITALS (12 sets, daily range): BP systolic 112–136; BP diastolic 44–62; PULSE 65–79; RESP 16–20; TEMP 36.1–36.7; O2SAT 95–100
[2021-09-23 00:53] LABS: Pneumococcal Antigen Urine Not Detected (Not Detected)
[2021-09-23 05:55] LABS: Basophils Percent Auto 0.4 % (0.2-1.2); Eosinophils Absolute Auto 0.3 K/mm3 (0-0.3); Eosinophils Percent Auto 2.9 % (0-4.4); Hematocrit 24.2 % (37.0-47.0); Hemoglobin 7.5 g/dL (12.0-15.0); Immature Granulocyte Absolute 0.03 K/mm3 (0.00-0.031); Immature Granulocyte Percent A 0.3 % (0-0.5); Lymphocytes Absolute Auto 2.16 K/mm3 (0.9-3.2); Lymphocytes Percent Auto 20.5 % (18.3-44.2); Mean Corpuscular Hemoglobin 29.8 pg (26-34); Mean Platelet Volume 10.9 fl (7.4-10.4); Monocytes Absolute Auto 0.8 K/mm3 (0.1-0.6); Neutrophils Absolute Auto 7.1 K/mm3 (1.3-6.7); Neutrophils Percent Auto 67.9 % (45.5-73.1); Platelet Count Result 301 k/mm3 (150-375); Red Blood Count 2.52 M/mm3 (4.2-5.4); Red Cell Distribution Width 15.9 % (11.5-14.5); White Blood Count 10.5 K/mm3 (4.5-10.0)
[2021-09-23 06:08] LABS: Alanine Aminotransferase 19 U/L (4-35); Albumin Level 3.5 g/dL (3.5-5.1); Alkaline Phosphatase 139 U/L (38-126); Anion Gap 6 mmol/L (8-16); Aspartate Amino Transferase 21 U/L (14-36); Bilirubin,Total 0.2 mg/dL (0.2-1.3); Blood Urea Nitrogen 57 mg/dL (7-17); Calcium 8.7 mg/dL (8.4-10.2); Carbon Dioxide 27 mmol/L (22-30); Chloride 107 mmol/L (98-107); Estimated CRCL calculation 22 ml/min; Estimated Glomerular Filt Rate 30; Glucose 170 mg/dL (65-110); Potassium 4.4 mmol/L (3.4-5.0); Sodium 140 mmol/L (137-145)
[2021-09-23 07:42] LABS: Glucose Point of Care 171 mg/dl (65-105)
[2021-09-23] MEDS: INSULIN ASPART (*BKC) 100 UNITS/ML 8 UNITS SUB-Q ×3 (08:00→16:34)
[2021-09-23] MEDS: carvediloL 3.125 MG TABLET PO (08:02)
[2021-09-23] MEDS: AZITHROMYCIN 250 MG TABLET 500 MG PO (08:02)
[2021-09-23] MEDS: FERROUS SULFATE 324 MG TABLET PO (08:02)
[2021-09-23] MEDS: LIDOCAINE 5% PATCH 1 PATCH TOPICAL (08:03)
[2021-09-23] MEDS: MULTIVITAMINS THERAPEUTIC TAB (*BKC) 1 TABLET PO (08:03)
[2021-09-23] MEDS: PANTOPRAZOLE 40 MG TABLET PO (08:03)
[2021-09-23] MEDS: FUROSEMIDE 20 MG TABLET PO ×2 (08:03→16:33)
[2021-09-23] MEDS: CEFDINIR 300 MG CAPSULE PO (11:50)
[2021-09-23] MEDS: INSULIN ASPART (*BKC) 100 UNITS/ML SUB-Q ×2 (11:51→16:33)
--- NOTE | 2021-09-23 12:00 | PM.DS ---
DS: Admitting Diagnosis Discharge Date 09/23/21 Admitting Diagnosis Altered mental status DS: Discharge Diagnosis Discharge Diagnosis (1) Sepsis: Qualifiers: Sepsis acute organ dysfunction status: unspecified Sepsis type: sepsis due to unspecified organism Qualified Code(s): A41.9 - Sepsis, unspecified organism Code(s): A41.9 - Sepsis, unspecified organism Status: Acute Assessment and Plan: Patient felt to hav severe sepsis with organ involvement. Patient has acute kidney injury as well as altered mental status and elevated liver enzymes with pneumonia as the etiology. BCx NGTD. UCx negative. She was started on broad spectrum abx since she was recently discharged from the hospital. WBC trended down. She did well and antibiotic were adjusted to Rocephin and azithromycin. (2) Hyperkalemia: Code(s): E87.5 - Hyperkalemia Status: Acute Assessment and Plan: Potassium elevated at 5.4. Related to the acute kidney injury. No EKG changes. She received albuterol once. Repeat potassium normal now. Resolved. (3) Pneumonia: Qualifiers: Aspiration pneumonia type: unspecified Laterality: right Lung location: unspecified part of lung Code(s): J18.9 - Pneumonia, unspecified organism Status: Acute Assessment and Plan: Chest x-ray on admission showing patchy right-sided pneumonia. Treatment as above. (4) STEFANO (acute kidney injury): Code(s): N17.9 - Acute kidney failure, unspecified Status: Acute Assessment and Plan: Creatinine at time of last discharge here was 1.7. Creatinine 2.6 here. IV fluids were started and Cr improved to 2.0. Concern for GI bleed given the elevated BUN but HH stable and stool guaiac negative. We resumed Lasix at [place] ad she toelrated this well. (5) Altered mental status: Qualifiers: Altered mental status type: unspecified Qualified Code(s): R41.82 - Altered mental status, unspecified Code(s): R41.82 - Altered mental status, unspecified Status: Acute Assessment and Plan: Patient had altered mental status. Daughter states patient was out of her Risperdal when she returned home from [place]. UDS was negative. CT the brain and C-spine showed no acute findings. Ammonia negative; RPR nonreacitve; TSH, folate and B12 normal. [place] AMS related to uremia and her dementia. Mental status improved but still confused felt o be more chronic. SHe worked with PT/OT (6) Diabetes: Code(s): E11.9 - Type 2 diabetes mellitus without complications Status: Acute Assessment and Plan: A1c 7.5. Patient has diabetes with diabetic neuropathy. Glucose was elevated on admission. She was monitored with Accucheks and covered with sliding scale. Hypoglycemia protocol was available as needed. (7) CKD (chronic kidney disease): Code(s): N18.9 - Chronic kidney disease, unspecified Status: Acute Assessment and Plan: Patient has CKD with fluctuating baseline. True baseline is unclear but suspect it is in the low 2 range. Treatment as above. She does have anemia as well. Hgb mostly in the 7-8 range. Spoke with [facility] who felt the anemia was related more to her CKD then from acute blood loss. B12/Folate leels okay. We did continue her iron here. This was noted at [facility] and they did arrange for further outpatient GI evaluation. Spoke with dtr who will followup with this plan. (8) Schizophrenia: Code(s): F20.9 - Schizophrenia, unspecified Status: Acute Assessment and Plan: Patient on risperidone which was resumed. Mood remains stable. (9) Dementia: Code(s): F03.90 - Unspecified dementia without behavioral disturbance Status: Acute Assessment and Plan: Patient has underlying dementia per daughter. DS: Summary Hospital Course Reason for hospitalization: 70yo female with schizophrenia, DM and recently
[2021-09-23 12:02] LABS: Glucose Point of Care 279 mg/dl (65-105)
[2021-09-23 16:12] LABS: Glucose Point of Care 218 mg/dl (65-105)
== END 2021-09-23 18:55 | disposition home health service (06) | DRG 871 ==
LOC: ANHED 11:38 → ANHIMU 12:23 → ANH2MED 09-21 17:54
PROVIDERS: Internal Medicine; Admitting Provider Internal Medicine; Emergency Provider Emergency Medicine; PCP Hospitalist; Visit Provider Internal Medicine
DX: A41.9 Sepsis, unspecified organism (principal); J18.9 Pneumonia, unspecified organism; N18.4 Chronic kidney disease, stage 4 (severe); N17.9 Acute kidney failure, unspecified; R65.20 Severe sepsis without septic shock; Z20.822 Contact with and (suspected) exposure to COVID-19; Z86.16 Personal history of COVID-19; F20.9 Schizophrenia, unspecified; M16.10 Unilateral primary osteoarthritis, unspecified hip; E87.5 Hyperkalemia; I49.3 Ventricular premature depolarization; Z91.81 History of falling; E11.22 Type 2 diabetes mellitus with diabetic chronic kidney disease; E11.40 Type 2 diabetes mellitus with diabetic neuropathy, unspecified; F03.90 Unspecified dementia, unspecified severity, without behavioral disturbance, psychotic disturbance, mood disturbance, and anxiety; R74.8 Abnormal levels of other serum enzymes
CPT/HCPCS: 36415; 51701; 70450; 71045; 71046; 72125; 73502; 76775; 80048; 80053; 80069; 80202; 80307; 81001; 82140; 82274; 82550; 82570; 82607; 82746; 82948; 83036; 83605; 83735; 83880; 84100; 84300; 84443; 84484; 85014; 85018; 85025; 85610; 85730; 85999; 86592; 87040; 87086; 87899; 92610; 93005; 94640; 96361; 96365; 97110; 97116; 97161; 97165; 99285; A9270; C9113; C9803; J0456; J0692; J0696; J1815; J3370; J7120; U0003; U0005

== ENCOUNTER 2021-09-30 10:46 | Outpatient (NON) | payer MEDICARE, SELFPAY ==
[2021-09-30 11:48] LABS: Albumin Level 3.8 g/dL (3.5-5.1); Anion Gap 11 mmol/L (8-16); Blood Urea Nitrogen 57 mg/dL (7-17); Carbon Dioxide 21 mmol/L (22-30); Chloride 107 mmol/L (98-107); Estimated Glomerular Filt Rate 32; Glucose 162 mg/dL (65-110); Phosphorus 4.9 mg/dL (2.5-4.5); Potassium 4.8 mmol/L (3.4-5.0); Sodium 139 mmol/L (137-145)
[2021-09-30 12:46] LABS: Hematocrit 24.6 % (37.0-47.0); Hemoglobin 7.5 g/dL (12.0-15.0); Mean Corpuscular HGB Conc 30.5 g/dl (32-36); Mean Corpuscular Hemoglobin 29.8 pg (26-34); Mean Corpuscular Volume 97.6 fl (80-100); Mean Platelet Volume 10.8 fl (7.4-10.4); Platelet Count Result 285 k/mm3 (150-375); Red Blood Count 2.52 M/mm3 (4.2-5.4); Red Cell Distribution Width 15.8 % (11.5-14.5); White Blood Count 10.8 K/mm3 (4.5-10.0)
== END 2021-09-30 10:47 | disposition home or self-care (01) ==
PROVIDERS: PCP Hospitalist; Visit Provider Internal Medicine
DX: D64.9 Anemia, unspecified (principal); N18.9 Chronic kidney disease, unspecified
CPT/HCPCS: 80069; 85027

== ENCOUNTER 2021-11-04 09:30 | Inpatient (IN) | payer MEDICARE, MEDICAID, SELFPAY ==
[2021-11-04] VITALS (27 sets, daily range): BP systolic 134–186; BP diastolic 51–69; PULSE 70–93; RESP 10–21; TEMP 36.3–36.4; O2SAT 93–100; BMI 29.0
--- NOTE | ~2021-11-04 | NM_ITS ---
EXAMINATION: NM pulmonary perfusion DATE: 11/05/2021 12:44 INDICATION: Cough. TECHNIQUE: 5.09 mCi Tc-99m MAA was administered intravenously for perfusion images. Scintigraphic im ages of the chest were obtained. COMPARISON: Chest 2 views 11/04/2021 FINDINGS: Perfusion images show small and moderate sized defects in the lower lobes. IMPRESSION: 1. Nondiagnostic (intermediate probability for pulmonary embolism). Reviewed, dictated and finalized at location B.
--- NOTE | ~2021-11-04 | US_ITS ---
EXAMINATION: US abdomen limited DATE: 11/05/2021 11:44 INDICATION: Transaminitis TECHNIQUE: Multiple grayscale and Doppler ultrasound images of the abdomen were obtained. COMPARISON: CT, 07/31/2021 FINDINGS: The head, body, and tail of the pancreas are normal. The liver is normal with normal echoge nicity and echotexture. No surface nodularity. Normal hepatopetal flow in the main portal vein. The g allbladder is normal with no abnormal wall thickening, pericholecystic fluid or stones. The normal co mmon bile duct measures 3 mm. There was no sonographic Armendariz sign. IMPRESSION: 1. No sonographic correlate for the patient's symptoms. Reviewed, dictated and finalized at location A.
--- NOTE | ~2021-11-04 | XR_ITS ---
EXAMINATION: XR chest 2V DATE: 11/04/2021 10:04 INDICATION: One week of cough TECHNIQUE: frontal and lateral views of the chest were obtained. COMPARISON: Chest radiograph dated 09/21/2021 FINDINGS: New small ill-defined nodular opacity in the left midlung zone which given the rapid development woul d be most suspicious for pneumonia. No other airspace opacities, pulmonary edema, pleural effusion or pneumothorax. Moderate degenerative skeletal changes at the bilateral shoulders. IMPRESSION: 1. New small ill-defined nodular opacity in the left midlung zone suspicious for pneumonia. Recommend radiographic follow-up to resolution. Reviewed, dictated and finalized at location A. IMPRESSION: 1. New small ill-defined nodular opacity in the left midlung zone suspicious fo r pneumonia. Recommend radiographic follow-up to resolution.
--- NOTE | ~2021-11-04 | XR_ITS ---
EXAMINATION: XR chest 1V portable DATE: 11/10/2021 06:39 INDICATION: Shortness of breath TECHNIQUE: frontal view of the chest was obtained. COMPARISON: Chest radiograph dated 11/04/2021 FINDINGS: Linear bands of discoid atelectasis at the bilateral lower lung zones. Additional more patchy airspac e opacity left lung base which could represent additional atelectasis or pneumonia. No pulmonary jerome a, pleural effusion or pneumothorax. The cardiomediastinal silhouette is normal. Visualized bones and soft tissues are unremarkable. IMPRESSION: 1. Opacities in bilateral lower lung zones consistent with atelectasis although differential in the l eft lower lung zone also includes pneumonia. Reviewed, dictated and finalized at location A. IMPRESSION: 1. Opacities in bilateral lower lung zones consistent with atelectasis although differential in the left lower lung zone also includes pneumonia.
--- NOTE | ~2021-11-04 | XR_ITS ---
EXAMINATION: XR chest 1V portable DATE: 11/14/2021 05:54 INDICATION: Pneumonia. TECHNIQUE: A single frontal view of the chest was obtained. COMPARISON: Chest single view 11/10/2021 FINDINGS: The chest demonstrates clear lungs without pneumonia, pleural effusion, or pneumothorax. Th e heart size is normal. IMPRESSION: 1. No acute cardiopulmonary disease. Reviewed, dictated and finalized at location A.
--- NOTE | ~2021-11-04 | US_ITS ---
EXAMINATION: US venous doppler [facility] DATE: 11/04/2021 18:16 INDICATION: edema . TECHNIQUE: Grayscale images without and with compression and Doppler images of the bilateral lower ex tremity veins were obtained. COMPARISON: None FINDINGS: The right common femoral vein, profunda (deep) femoral vein, femoral vein, popliteal vein, peroneal v ein, posterior tibial veins, gastrocnemius vein, and greater saphenous vein are patent. The left common femoral vein, profunda femoral vein, femoral vein, popliteal vein, peroneal vein, gas trocnemius vein, and greater saphenous vein are patent. Thrombosed posterior tibial vein. IMPRESSION: 1. Thrombosed left posterior tibial vein. No other deep venous thrombosis detected. Result communicated telephonically to Zina Vieyra, the patient's nurse, by Dr. Galvez at 6:33 PM on 11/04/2021. Reviewed, dictated and finalized at location K. IMPRESSION: 1. Thrombosed left posterior tibial vein. No other deep venous thrombosis dete cted. Result communicated telephonically to Zina Vieyra, the patient's nurse, by Dr Jonel Galvez at 6:33 PM on 11/04/2021.
--- NOTE | ~2021-11-04 | CT_ITS ---
EXAMINATION: CT brain wo con DATE: 11/06/2021 17:26 INDICATION: AMS TECHNIQUE: Computed tomography (CT) of the head was performed without intravenous contrast. The mA wa s adjusted according to patient size. Iterative reconstruction technique was employed. The dose-lengt h product was 529.67 mGy-cm. COMPARISON: 09/19/2021. FINDINGS: No acute intracranial hemorrhage or extra-axial fluid collection. No hydrocephalus, mass, or herniation. No acute ischemic infarct. Unremarkable dural venous sinus attenuation. No acute osseous abnormality. Mild ethmoid air cell mucosal thickening, otherwise the aerated spaces are clear. Mild atrophy and moderate chronic white matter change. Atherosclerotic intracranial calcification. Bi lateral lens replacements. IMPRESSION: No acute intracranial process. Reviewed, dictated and finalized at location K.
--- NOTE | 2021-11-04 09:45 | ECG_ITS ---
Measurements Intervals [place] Rate: 85 P: 66 ME: 172 QRS: 0 QRSD: 80 T: 46 QT: 386 QTc: 461 Interpretive Statements SINUS RHYTHM BASELINE WANDER- I, AVR, V4-V5 NORMAL ECG Electronically Signed On 11-04-2021 9:58:40 CDT by Melquiades Marte D.O.
[2021-11-04 10:04] LABS: Basophils Percent Auto 0.5 % (0.2-1.2); Eosinophils Absolute Auto 0.1 K/mm3 (0-0.3); Eosinophils Percent Auto 1.7 % (0-4.4); Hematocrit 28.9 % (37.0-47.0); Hemoglobin 8.9 g/dL (12.0-15.0); Immature Granulocyte Absolute 0.01 K/mm3 (0.00-0.031); Immature Granulocyte Percent A 0.1 % (0-0.5); Lymphocytes Absolute Auto 1.85 K/mm3 (0.9-3.2); Lymphocytes Percent Auto 22.1 % (18.3-44.2); Mean Corpuscular HGB Conc 30.8 g/dl (32-36); Mean Corpuscular Hemoglobin 29.3 pg (26-34); Mean Corpuscular Volume 95.1 fl (80-100); Mean Platelet Volume 10.7 fl (7.4-10.4); Monocytes Absolute Auto 0.6 K/mm3 (0.1-0.6); Monocytes Percent Auto 7.6 % (2.6-8.5); Neutrophils Absolute Auto 5.7 K/mm3 (1.3-6.7); Platelet Count Result 232 k/mm3 (150-375); Red Blood Count 3.04 M/mm3 (4.2-5.4); Red Cell Distribution Width 14.9 % (11.5-14.5); White Blood Count 8.4 K/mm3 (4.5-10.0)
[2021-11-04 10:19] LABS: Alanine Aminotransferase 44 U/L (6-35); Albumin Level 3.5 g/dL (3.5-5.1); Alkaline Phosphatase 200 U/L (38-126); Anion Gap 9 mmol/L (8-16); Aspartate Amino Transferase 48 U/L (14-36); Bilirubin,Total 0.2 mg/dL (0.2-1.3); Blood Urea Nitrogen 49 mg/dL (7-17); Calcium 8.4 mg/dL (8.4-10.2); Carbon Dioxide 27 mmol/L (22-30); Chloride 104 mmol/L (98-107); Estimated CRCL calculation 23 ml/min; Estimated Glomerular Filt Rate 32; Glucose 310 mg/dL (65-110); Sodium 140 mmol/L (137-145)
--- NOTE | 2021-11-04 11:20 | ED.URI ---
HPI - URI/Sore Throat General Chief Complaint: Upper Respiratory Infection Stated Complaint: Cough, Leg Weakness Time Seen by Provider: 11/04/21 10:39 Source: patient and family History of Present Illness HPI Narrative: 71 y/o female presents to the ER today for complaints of cough for the past week that is getting worse and more productive with thick sputum. She says she is not really short of breath but she is very weak and having more difficulty getting up and walking. She has swelling to bilateral lower extremities. She has chronic leg swelling but daughter says that it is a little worse right now. Daughter is concerned because she is just getting so weak. She was admitted about a month ago for pneumonia. She just had covid in June of this year. PMH signficant for anemia, CKD stage 4, dementia, diabetes, schizophrenia and pneumonia Related Data Home Medications Medication Instructions Recorded Confirmed atorvastatin 40 mg PO HS 06/23/21 09/19/21 pregabalin 150 mg PO HS 06/23/21 09/19/21 Lantus Solostar U-100 Insulin 25 unit SUBCUT HS 09/19/21 09/19/21 Trulicity 0.75 mg SUBCUT WEEKLY 09/19/21 09/19/21 acetaminophen 650 mg PO Q6H PRN 09/19/21 09/19/21 famotidine [Pepcid] 20 mg PO DAILY 09/19/21 09/19/21 ferrous sulfate 325 mg PO DAILY 09/19/21 09/19/21 insulin lispro 1 - 4 sliding scale dose SUBCUT 09/19/21 09/19/21 USEASDIRECTD insulin lispro 8 unit SUBCUT TIDWM 09/19/21 09/19/21 lidocaine 1 patch TOPICAL DAILY 09/19/21 09/19/21 multivitamin 1 tablet PO DAILY 09/19/21 09/19/21 polyethylene glycol 3350 [Miralax] 17 g PO DAILY PRN 09/19/21 09/19/21 Allergies Allergy/AdvReac Type Severity Reaction Status Date / Time No Known Allergies Allergy Verified 11/04/21 10:32 Review of Systems Constitutional: Constitutional: Denies chills, Reports fatigue, Denies fever(s) and Reports weakness Eyes: Eyes: Denies change in vision ENT: Denies dizziness, Denies nasal congestion and Denies sore throat Cardiovascular: Cardiovascular: Denies chest pain Respiratory: Respiratory: Reports chest congestion, Reports cough, Denies dyspnea and Denies wheezing Gastrointestinal: Gastrointestinal: Denies abdominal pain, Denies diarrhea, Denies nausea and Denies vomiting Genitourinary: Genitourinary: Denies dysuria and Denies flank pain Musculoskeletal: Musculoskeletal: Denies back pain, Denies myalgias and Denies arthralgias Integumentary/Breasts: Skin/Breast: Denies pruritus, Denies erythema and Denies rash Neurologic: Denies dizziness, Denies syncope, Denies headache(s) and Reports weakness Psychiatric: Psychiatric: Reports no additional psychiatric complaints Endocrine: Endocrine: Reports no additional endocrine complaints Hematologic/Lymphatic: Hematologic/Lymphatic: Reports no additional hematologic/lymphatic complaints Allergic/Immunologic: Allergic/Immunologic: Reports no additional allergic/immunologic complaints PMFSH Past Medical History Medical History Anemia CKD (chronic kidney disease) COVID Jun 2021 Dementia Diabetes Diabetic neuropathy Schizophrenia Surgical History Surgical History Hx of section Right great toe amputee Family History Family History (Updated 11/04/21 @ 13:29 by Sussy Carbajal NP) Mother Acute myocardial infarction Diabetes mellitus Father Heart attack Sibling Acute myocardial infarction Diabetes mellitus Social History Social History Social History: Lives with daughter and grandson. Lifelong nonsmoker. No alcohol or drug use. Full code. No POA but Dafne Gayle is the child that makes the patient's medical decision. Smoking status: Never smoker Alcohol intake: unknown Substance use: unknown Substance use type: does not use Gender identity (if verbalized by the patient):
[2021-11-04 12:14] LABS: NT Pro B Type Natriuretic Pept 275 pg/mL (5-100)
[2021-11-04 12:17] LABS: Influenza A QL RT-PCR Negative (Negative); Influenza B QL RT-PCR Negative (Negative); SARS-CoV-2 RNA PCR Negative
[2021-11-04 13:01] LABS: Appearance Urine Clear (Clear); Bilirubin Urine Negative (Negative); Blood Urine 1+ (Negative); Color Urine Yellow (Yellow); Glucose Urine UA 1+ mg/dL (Negative); Ketones Urine Negative (Negative); Leukocyte Esterase Ur Negative LEU/UL (Negative); Nitrate Urine Negative (Negative); Protein Urine 3+ mg/dL (Negative); Urobilinogen Urine 0.2 mg/dL (<2.0)
[2021-11-04 13:11] LABS: Add Urine Microscopic? YES
--- NOTE | 2021-11-04 13:24 | PM.IMHP ---
H&P: HPI History of Present Illness Date/Time: 11/04/21 13:24 this is a 71-year-old female patient who came to the emergency room with complaints of cough for the last week with thick sputum. The patient was diagnosed with pneumonia Over 1 month ago and was placed and snf briefly but has been home for the last month with her daughter. she also complains of bilateral lower extremity swelling. The patient has gotten very weak. She was diagnosed with COVID June of this year. She does have a history of of anemia, chronic kidney disease stage 4, dementia, diabetes, schizophrenia and the pneumonia. Her H&H is 8.9 and 28.9 which is close to her baseline. Her creatinine is 1.9 with BUN of 49 which is her baseline. Blood sugar was 310 today. Liver enzymes are elevated today. Alkaline phosphatase is at the baseline. BNP 275. COVID testing is negative today. The patient was given Levaquin earlier in the emergency room. Blood cultures have been obtained. Chest x-ray today shows new small ill-defined nodular opacity in the left mid lung zone suspicious for pneumonia. The patient is being admitted to observation status on the date of service 11/04/2021. Chief Complaint: Weakness Review of Systems Review of Systems: All systems reviewed & are unremarkable except as noted in HPI and below Constitutional: Constitutional: Reports as per HPI and Reports no additional constitutional complaints Eyes: Eyes: Reports as per HPI and Reports no additional eye complaints ENT: Reports system reviewed and no additional complaints, except as documented and Reports Normal hearing present Cardiovascular: Cardiovascular: Reports no additional cardiovascular complaints Respiratory: Respiratory: Reports no additional respiratory complaints and Reports no additional respiratory complaints Gastrointestinal: Gastrointestinal: Reports as per HPI and Reports no additional gastrointestinal complaints Musculoskeletal: Musculoskeletal: Reports no additional musculoskeletal complaints Integumentary/Breasts: Skin/Breast: Reports system reviewed and no additional complaints, except as docu and Reports as per HPI Neurologic: Reports system reviewed and no additional complaints, except as documented, Reports as per HPI and Reports Normal hearing present Psychiatric: Psychiatric: Reports no additional psychiatric complaints and Reports as per HPI Endocrine: Endocrine: Reports no additional endocrine complaints Hematologic/Lymphatic: Hematologic/Lymphatic: Reports no additional hematologic/lymphatic complaints Allergic/Immunologic: Allergic/Immunologic: Reports no additional allergic/immunologic complaints [facility] [place] Past Medical History Medical History (Updated 11/04/21 @ 15:16 by Sussy Carbajal NP) Anemia CKD (chronic kidney disease) Congestive heart failure 1. Complete two-dimensional, color flow and Doppler transthoracic echocardiogram is performed. 2. Left ventricular systolic function is normal, estimated at 60-65%. 3. There is mildly increased left ventricular wall thickness. 4. The left ventricular diastolic function is grade I diastolic dysfunction. 5. There is mild aortic valve regurgitation. 6. There is mild aortic valve sclerosis. 7. There is trace mitral valve regurgitation. 8. There is trace tricuspid valve regurgitation. 9. No pulmonary hypertension, estimated pulmonary arterial systolic pressure is 35 mmHg. echo from 08/01/2021 COVID Jun 2021 Dementia Diabetes Diabetic neuropathy Hyperkalemia Schizophrenia Sepsis Surgical History Surgical History Hx of section Right great toe amputee Family History Family History Mother Acute myocardial infarction Diabetes mellitus Father Heart attack Sibling Acute myocardial infarction Diabetes mellitus Social History Social History (Updated 11/04/21 @ 15:03 b
[2021-11-04] MEDS: levoFLOXacin 500 MG/D5W 100 ML 500 MG/100 ML BAG 100 MG IVPB (14:12)
--- NOTE | 2021-11-04 15:20 | ADMGEN ---
This patient, Barbara Chakraborty, was admitted to Medical Room 250-01. Patient/family oriented to hospital policies and general routines including ID bracelet, bed and alarms, visiting hours, pain management, procedures, bathroom and other care routines, personal items, smoking policy, room service/diet, and visiting hours. Information on how to activate the Rapid Response Team has been discussed. Patient/Family are encouraged to report perceived risks to care and to ask questions if they do not understand what they are told or what they should do.
[2021-11-04 16:02] LABS: Glucose Point of Care 224 mg/dl (65-105)
--- NOTE | 2021-11-04 16:50 | PC.NURSE ---
to ultrasound per stretcher
[2021-11-04 17:56] LABS: Glucose Point of Care 262 mg/dl (65-105)
[2021-11-04] MEDS: INSULIN ASPART (*BKC) 100 UNITS/ML SUB-Q (18:12)
--- NOTE | 2021-11-04 19:15 | PM.EVENT ---
Event Note Event Note Event Note: The patient was found have a thrombosed left posterior tibial vein. No other deep vein thrombosis detected. I spoke with the pharmacist who recommended Eliquis 5 mg p.o. b.i.d. with no renal a adjustment.
[2021-11-04] MEDS: IPRATROPIUM BR 0.02% INH SOLN 0.5 MG/2.5 ML VIAL INHALATION (20:20)
[2021-11-04] MEDS: ALBUTEROL SULFATE NEB 2.5 MG/3 ML INH INHALATION (20:20)
[2021-11-04] MEDS: risperiDONE 1 MG TABLET 2 MG PO (21:30)
[2021-11-04] MEDS: FUROSEMIDE INJ 40 MG/4 ML VIAL IV PUSH (21:30)
[2021-11-04] MEDS: ATORVASTATIN 40 MG TABLET PO (21:30)
[2021-11-04] MEDS: carvediloL 3.125 MG TABLET PO (21:30)
[2021-11-04] MEDS: APIXABAN 5 MG TABLET PO (21:31)
[2021-11-04] MEDS: PREGABALIN (*CRX) 75 MG CAPSULE 150 MG PO (21:36)
[2021-11-04] MEDS: INSULIN GLARGINE (*BKC) 100 UNITS/ML 25 UNITS SUB-Q (21:40)
[2021-11-04 21:44] LABS: Glucose Point of Care 264 mg/dl (65-105)
[2021-11-05] VITALS (13 sets, daily range): BP systolic 128–135; BP diastolic 43–57; PULSE 79–93; RESP 16–21; TEMP 36.2–36.8; O2SAT 92–100
[2021-11-05] MEDS: ALBUTEROL SULFATE NEB 2.5 MG/3 ML INH INHALATION ×3 (02:30→19:53)
[2021-11-05] MEDS: IPRATROPIUM BR 0.02% INH SOLN 0.5 MG/2.5 ML VIAL INHALATION ×3 (02:30→19:53)
[2021-11-05 05:26] LABS: Basophils Percent Auto 0.3 % (0.2-1.2); Eosinophils Absolute Auto 0.1 K/mm3 (0-0.3); Hematocrit 27.6 % (37.0-47.0); Hemoglobin 8.8 g/dL (12.0-15.0); Immature Granulocyte Absolute 0.03 K/mm3 (0.00-0.031); Immature Granulocyte Percent A 0.3 % (0-0.5); Lymphocytes Absolute Auto 1.57 K/mm3 (0.9-3.2); Lymphocytes Percent Auto 15.4 % (18.3-44.2); Mean Corpuscular HGB Conc 31.9 g/dl (32-36); Mean Corpuscular Hemoglobin 29.7 pg (26-34); Mean Corpuscular Volume 93.2 fl (80-100); Mean Platelet Volume 11.3 fl (7.4-10.4); Monocytes Absolute Auto 0.8 K/mm3 (0.1-0.6); Monocytes Percent Auto 8.2 % (2.6-8.5); Neutrophils Absolute Auto 7.6 K/mm3 (1.3-6.7); Neutrophils Percent Auto 74.8 % (45.5-73.1); Platelet Count Result 232 k/mm3 (150-375); Red Blood Count 2.96 M/mm3 (4.2-5.4); Red Cell Distribution Width 14.8 % (11.5-14.5); White Blood Count 10.2 K/mm3 (4.5-10.0)
[2021-11-05 05:38] LABS: Lactic Acid Reflex 1.5 mmol/L (0.7-2.0)
--- NOTE | 2021-11-05 08:14 | PM.IMPN ---
Progress Note: A&P Assessment and Plan (1) HCAP (healthcare-associated pneumonia): Code(s): J18.9 - Pneumonia, unspecified organism Status: Acute Assessment and Plan: Vital signs stable. WBC 10.2 today, patient is saturating 100% on room air, though she is mildly tachypneic. Recent hospitalization (October 11) for pneumonia and sepsis, stay in SNF, with 1 week history of worsening cough and sputum production. The patient was given Levaquin in the emergency room. Started empiric HAP coverage as below. ABx cefepime, vancomycin, levaquin PRN nebs Trend infectious markers Blood cultures and sputum cultures are pending, as are urine cultures (2) Venous thrombosis: Code(s): I82.90 - Acute embolism and thrombosis of unspecified vein Status: Acute Assessment and Plan: Venous duplex lower extremities showed a thrombosed left PT vein. V/Q scan showed nondiagnostic (intermediate probability for pulmonary embolism). Given the lower extremity thrombosed Pt vein, patient was started on anticoagulation, so regardless she is being treated therapeutically in the event that she does indeed have a pulmonary embolism. Patient started on Eliquis 5 p.o. b.i.d will continue. (3) Congestive heart failure: Qualifiers: Heart failure chronicity: chronic Heart failure type: diastolic Qualified Code(s): I50.32 - Chronic diastolic (congestive) heart failure Code(s): I50.9 - Heart failure, unspecified Status: Acute Assessment and Plan: Vital signs are stable bNP mildly elevated at 275 in pt with stage IV CKD. July 2021 Echo showed showed grade 1 diastolic dysfunction with preserved ejection fraction. 158lbs on 11/04. Chest x-ray showed no other airspace opacities, pulmonary edema, pleural effusion or pneumothorax. Continue with Coreg. Daily weights I & Os Monitor renal functions closely. D/C lasix at this time. (4) CKD (chronic kidney disease) stage 4, GFR 15-29 ml/min: Code(s): N18.4 - Chronic kidney disease, stage 4 (severe) Status: Acute Assessment and Plan: BUN/Cr today 46/2.0 (49/1.9). Continue to monitor labs daily. Patient is near her baseline. K 3.8, calcium 8.7, magnesium 2.0. Lasix is being discontinued (5) Anemia: Code(s): D64.9 - Anemia, unspecified Status: Acute Assessment and Plan: H&H 8.8/27.6 today. Prior to July of this year patient's normal hemoglobin was 10 to 11. Will follow results and consult GI as appropriate. Daily labs Fecal occult blood Continue to monitor (6) Hypertension: Code(s): I10 - Essential (primary) hypertension Status: Acute Assessment and Plan: Continue with Coreg. (7) Generalized muscle weakness: Code(s): M62.81 - Muscle weakness (generalized) Status: Acute Assessment and Plan: PT and OT Evaluation would greatly be appreciated. (8) Transaminitis: Code(s): R74.01 - Elevation of levels of liver transaminase levels Status: Acute Assessment and Plan: Mild transaminitis noted. New during this admission. She is asymptomatic at this time. RUQ ultrasound showed no sonographic concerns or correlation for the patient's symptoms. Hepatitis panel (9) Diabetes: Code(s): E11.9 - Type 2 diabetes mellitus without complications Status: Acute Assessment and Plan: Glucose 195 today. 7.5 A1c on 08/2021 patient on Lantus 25 units subQ daily, insulin lispro 8 units subQ t.i.d. with meals, and Trulicity weekly. Accu-Cheks AC and HS. Continue with Lantus. Diabetic diet (10) DVT prophylaxis: Code(s): Z29.9 - Encounter for prophylactic measures, unspecified Status: Acute Assessment and Plan: Patient started on Eliquis during her stay due to venous duplex finding of thrombosed left PT vein. (11) Schizophrenia: Code(s): F20.9 - Schizophre
[2021-11-05 08:34] LABS: Glucose Point of Care 166 mg/dl (65-105)
[2021-11-05 08:34] LABS: Alanine Aminotransferase 36 U/L (6-35); Albumin Level 3.3 g/dL (3.5-5.1); Alkaline Phosphatase 136 U/L (38-126); Anion Gap 6 mmol/L (8-16); Aspartate Amino Transferase 30 U/L (14-36); Bilirubin,Total 0.1 mg/dL (0.2-1.3); Blood Urea Nitrogen 46 mg/dL (7-17); Calcium 8.7 mg/dL (8.4-10.2); Carbon Dioxide 29 mmol/L (22-30); Chloride 107 mmol/L (98-107); Estimated CRCL calculation 22 ml/min; Estimated Glomerular Filt Rate 30; Glucose 195 mg/dL (65-110); Potassium 3.8 mmol/L (3.4-5.0); Sodium 142 mmol/L (137-145)
--- NOTE | 2021-11-05 09:13 | PCRCNOTE ---
For 0800 tx: pt too sleepy to complete neb tx with Ezpap, Nurse aware.
[2021-11-05 09:16] LABS: Hepatitis B Surface Antigen Negative (Negative)
[2021-11-05 09:22] LABS: HAV RESULT Negative (Negative); Hepatitis B Core IgM Result Negative (Negative)
--- NOTE | 2021-11-05 09:22 | PCOTNOTE ---
Attempted OT evaluation, per RN hold for morning due to discovered DVT, will follow.
[2021-11-05 09:34] LABS: Hepatitis C Virus Antibody Negative (Negative)
[2021-11-05] MEDS: FUROSEMIDE INJ 40 MG/4 ML VIAL IV PUSH (10:30)
[2021-11-05] MEDS: FAMOTIDINE 20 MG TABLET PO (12:03)
[2021-11-05] MEDS: MULTIVITAMINS THERAPEUTIC TAB (*BKC) 1 TABLET PO (12:03)
[2021-11-05] MEDS: carvediloL 3.125 MG TABLET PO ×2 (12:03→20:38)
[2021-11-05] MEDS: FERROUS SULFATE 324 MG TABLET PO (12:03)
[2021-11-05] MEDS: APIXABAN 5 MG TABLET PO (12:04)
[2021-11-05 12:20] LABS: Glucose Point of Care 155 mg/dl (65-105)
--- NOTE | 2021-11-05 13:35 | PCOTNOTE ---
Attempted OT evaluation, patient on hold until tomorrow, will follow and attempt at later time.
--- NOTE | 2021-11-05 15:12 | PCPTNOTE ---
Attempted PT evaluation, patient on hold until tomorrow, will follow and attempt at later time.
[2021-11-05 16:30] LABS: Glucose Point of Care 222 mg/dl (65-105)
[2021-11-05] MEDS: SODIUM CHLORIDE 0.9% IV 500 ML 100 ML IV CONT (16:41)
[2021-11-05] MEDS: INSULIN ASPART (*BKC) 100 UNITS/ML SUB-Q (16:49)
[2021-11-05 19:06] LABS: IFOB Positive Control Positive; Immunochemical Fecal Occult Bl Negative (N)
[2021-11-05 20:21] LABS: Glucose Point of Care 163 mg/dl (65-105)
[2021-11-05] MEDS: APIXABAN 5 MG TABLET 10 MG PO (20:37)
[2021-11-05] MEDS: PREGABALIN (*CRX) 75 MG CAPSULE 150 MG PO (20:37)
[2021-11-05] MEDS: ATORVASTATIN 40 MG TABLET PO (20:37)
[2021-11-05] MEDS: risperiDONE 1 MG TABLET 2 MG PO (20:37)
[2021-11-05] MEDS: INSULIN GLARGINE (*BKC) 100 UNITS/ML 25 UNITS SUB-Q (20:43)
[2021-11-06] VITALS (16 sets, daily range): BP systolic 105–172; BP diastolic 46–67; PULSE 75–95; RESP 16–18; TEMP 36.9–38.5; O2SAT 88–100
[2021-11-06] MEDS: ACETAMINOPHEN 325 MG TABLET 650 MG PO ×2 (01:31→22:16)
[2021-11-06 01:41] LABS: Glucose Point of Care 144 mg/dl (65-105)
[2021-11-06] MEDS: ALBUTEROL SULFATE NEB 2.5 MG/3 ML INH INHALATION ×3 (02:58→20:30)
[2021-11-06] MEDS: IPRATROPIUM BR 0.02% INH SOLN 0.5 MG/2.5 ML VIAL INHALATION ×3 (02:59→20:30)
[2021-11-06 06:06] LABS: Estimated CRCL calculation 20 ml/min; Estimated Glomerular Filt Rate 27
[2021-11-06 07:43] LABS: Glucose Point of Care 143 mg/dl (65-105)
[2021-11-06 07:47] LABS: Basophils Percent Auto 0.4 % (0.2-1.2); Eosinophils Absolute Auto 0.1 K/mm3 (0-0.3); Eosinophils Percent Auto 1.1 % (0-4.4); Hematocrit 27.3 % (37.0-47.0); Hemoglobin 8.1 g/dL (12.0-15.0); Immature Granulocyte Absolute 0.04 K/mm3 (0.00-0.031); Immature Granulocyte Percent A 0.4 % (0-0.5); Lymphocytes Absolute Auto 1.79 K/mm3 (0.9-3.2); Lymphocytes Percent Auto 19.6 % (18.3-44.2); Mean Corpuscular HGB Conc 29.7 g/dl (32-36); Mean Corpuscular Volume 97.8 fl (80-100); Mean Platelet Volume 11.3 fl (7.4-10.4); Monocytes Absolute Auto 0.6 K/mm3 (0.1-0.6); Monocytes Percent Auto 6.3 % (2.6-8.5); Neutrophils Absolute Auto 6.6 K/mm3 (1.3-6.7); Neutrophils Percent Auto 72.2 % (45.5-73.1); Platelet Count Result 202 k/mm3 (150-375); Red Blood Count 2.79 M/mm3 (4.2-5.4); Red Cell Distribution Width 14.9 % (11.5-14.5); White Blood Count 9.1 K/mm3 (4.5-10.0)
[2021-11-06 08:24] LABS: Platelet Estimate Adequate (Adequate)
[2021-11-06 08:25] LABS: Poikilocytosis 1+ (NORMAL); Schistocytes 1+ (NORMAL)
[2021-11-06 08:31] LABS: Alanine Aminotransferase 27 U/L (6-35); Albumin Level 3.1 g/dL (3.5-5.1); Alkaline Phosphatase 85 U/L (38-126); Anion Gap 11 mmol/L (8-16); Aspartate Amino Transferase 23 U/L (14-36); Bilirubin,Total 0.3 mg/dL (0.2-1.3); Blood Urea Nitrogen 44 mg/dL (7-17); Calcium 8.2 mg/dL (8.4-10.2); Carbon Dioxide 27 mmol/L (22-30); Chloride 107 mmol/L (98-107); Estimated CRCL calculation 20 ml/min; Estimated Glomerular Filt Rate 27; Glucose 141 mg/dL (65-110); Potassium 3.9 mmol/L (3.4-5.0); Sodium 145 mmol/L (137-145)
[2021-11-06] MEDS: carvediloL 3.125 MG TABLET PO ×2 (08:42→21:10)
[2021-11-06] MEDS: FERROUS SULFATE 324 MG TABLET PO (08:43)
[2021-11-06] MEDS: FAMOTIDINE 20 MG TABLET PO (08:43)
[2021-11-06] MEDS: MULTIVITAMINS THERAPEUTIC TAB (*BKC) 1 TABLET PO (08:43)
[2021-11-06] MEDS: APIXABAN 5 MG TABLET 10 MG PO ×3 (08:44→21:53)
--- NOTE | 2021-11-06 09:38 | PCPTNOTE ---
attempted PT eval ~ 930; unable to arouse pt, lethargic and unable to stay awake, barely opened eyes and did not speak. unable to complete eval at this time;
--- NOTE | 2021-11-06 10:27 | PCOTNOTE ---
Attempted OT evaluation, per RN patient is to lethargic at this time. Will follow and attempt at later time.
[2021-11-06 11:39] LABS: Glucose Point of Care 167 mg/dl (65-105)
--- NOTE | 2021-11-06 13:57 | PCOTNOTE ---
Attempted OT evaluation, unable to arouse patient to participate in therapy at this time, will follow and attempt at later time, RN aware.
--- NOTE | 2021-11-06 15:13 | PM.IMPN ---
Progress Note: A&P Assessment and Plan (1) Acute metabolic encephalopathy: Code(s): G93.41 - Metabolic encephalopathy Status: Acute Assessment and Plan: -secondary to PNA? -vitals are stable, no leukocytosis or fever to suggest sepsis or bacteremia -final urine culture negative -COLE NGTJeff -RN tells me patient is much more lethargic and less responsive today -no focal defecits noted on exam today however she is not cooperating or following commands to perform a complete exam -check stat CT head, consider MRI -check ABG (2) HCAP (healthcare-associated pneumonia): Code(s): J18.9 - Pneumonia, unspecified organism Status: Acute Assessment and Plan: Vital signs stable. WBC 9.1 today, patient is saturating 100% on room air. Recent hospitalization (October 11) for pneumonia and sepsis, stay in SNF, with 1 week history of worsening cough and sputum production. The patient was given Levaquin in the emergency room. Started empiric HAP coverage as below. ABx cefepime, vancomycin, levaquin PRN nebs Trend infectious markers Blood cultures and sputum cultures are pending (3) Venous thrombosis: Code(s): I82.90 - Acute embolism and thrombosis of unspecified vein Status: Acute Assessment and Plan: Venous duplex lower extremities showed a thrombosed left PT vein. V/Q scan showed nondiagnostic (intermediate probability for pulmonary embolism). Given the lower extremity thrombosed Pt vein, patient was started on anticoagulation, so regardless she is being treated therapeutically in the event that she does indeed have a pulmonary embolism. Patient started on Eliquis 10 p.o. b.i.d x7 days then will transition to 5 bid per pharmacy recommendations (4) Congestive heart failure: Qualifiers: Heart failure type: diastolic Heart failure chronicity: chronic Qualified Code(s): I50.32 - Chronic diastolic (congestive) heart failure Code(s): I50.9 - Heart failure, unspecified Status: Acute Assessment and Plan: Vital signs are stable bNP mildly elevated at 275 in pt with stage IV CKD. July 2021 Echo showed showed grade 1 diastolic dysfunction with preserved ejection fraction. 158lbs on 11/04. Chest x-ray showed no other airspace opacities, pulmonary edema, pleural effusion or pneumothorax. Continue with Coreg. Daily weights I & Os Monitor renal functions closely. D/C lasix at this time. (5) CKD (chronic kidney disease) stage 4, GFR 15-29 ml/min: Code(s): N18.4 - Chronic kidney disease, stage 4 (severe) Status: Acute Assessment and Plan: BUN/Cr today 44/2.2. Continue to monitor labs daily. Patient is near her baseline. K 3.8, calcium 8.7, magnesium 2.0. Lasix discontinued (6) Anemia: Code(s): D64.9 - Anemia, unspecified Status: Acute Assessment and Plan: H&H 8.1/27.3 today. Prior to July of this year patient's normal hemoglobin was 10 to 11. Will follow results and consult GI as appropriate. Daily labs Fecal occult blood negative Continue to monitor, has remained stable thus far (7) Hypertension: Code(s): I10 - Essential (primary) hypertension Status: Acute Assessment and Plan: Continue with Coreg. (8) Generalized muscle weakness: Code(s): M62.81 - Muscle weakness (generalized) Status: Acute Assessment and Plan: PT and OT Evaluation would greatly be appreciated. (9) Transaminitis: Code(s): R74.01 - Elevation of levels of liver transaminase levels Status: Acute Assessment and Plan: Mild transaminitis noted. New during this admission. She is asymptomatic at this time. RUQ ultrasound showed no sonographic concerns or correlation for the patient's symptoms. Hepatitis panel negative (10) Diabetes: Code(s): E11.9 - Type 2 diabetes mellitus without complications Status
[2021-11-06 15:41] LABS: Alveolar/Arterial O2 Gradient 49.5 mmHg; Base Excess ABG 2.2 mEq/l (+/-2.0); Fractional Inspired Oxygen 24 %; HCO3 ABG 25.9 mEq/l (22.0-26.0); Oxygen Content ABG 13.7 %vol (16.0-22.0); Oxygen Saturation ABG 96.2 % (95.0-100.0); Oxyhemoglobin 93.8 % THb (90.0-100.0); PCO2 ABG 36.7 mmHg (35.0-45.0); PO2 ABG 77.9 mmHg (80.0-100.0); PO2 FiO2 Ratio Arterial Blood 3.25 %; Total Hemoglobin 10.3 g/dL (12.0-18.0); pH ABG 7.466 (7.350-7.450)
[2021-11-06 15:43] LABS: Device NASAL CANNULA; Modified Allen's Test Pass; Site Drawn RIGHT RADIAL
[2021-11-06 17:16] LABS: Glucose Point of Care 132 mg/dl (65-105)
[2021-11-06] MEDS: ATORVASTATIN 40 MG TABLET PO (21:10)
[2021-11-06] MEDS: PREGABALIN (*CRX) 75 MG CAPSULE 150 MG PO (21:55)
[2021-11-07] VITALS (13 sets, daily range): BP systolic 123–148; BP diastolic 48–59; PULSE 66–94; RESP 16–18; TEMP 35.9–38.7; O2SAT 90–100; BMI 30.2
[2021-11-07 00:40] LABS: Glucose Point of Care 143 mg/dl (65-105)
--- NOTE | 2021-11-07 02:01 | PCRCNOTE ---
Patient very lethargic tonight (11/06/21). RN and RT didn't think apnea link would be accurate, as patient was requiring increased oxygen.
[2021-11-07] MEDS: IPRATROPIUM BR 0.02% INH SOLN 0.5 MG/2.5 ML VIAL INHALATION ×3 (02:20→21:13)
[2021-11-07] MEDS: ALBUTEROL SULFATE NEB 2.5 MG/3 ML INH INHALATION ×3 (02:20→21:13)
[2021-11-07 05:23] LABS: Glucose Point of Care 149 mg/dl (65-105)
[2021-11-07 05:59] LABS: Basophils Percent Auto 0.3 % (0.2-1.2); Eosinophils Percent Auto 0.2 % (0-4.4); Hematocrit 29.1 % (37.0-47.0); Hemoglobin 8.9 g/dL (12.0-15.0); Immature Granulocyte Absolute 0.05 K/mm3 (0.00-0.031); Immature Granulocyte Percent A 0.4 % (0-0.5); Lymphocytes Absolute Auto 1.52 K/mm3 (0.9-3.2); Lymphocytes Percent Auto 13.5 % (18.3-44.2); Mean Corpuscular HGB Conc 30.6 g/dl (32-36); Mean Corpuscular Hemoglobin 28.6 pg (26-34); Mean Corpuscular Volume 93.6 fl (80-100); Mean Platelet Volume 11.1 fl (7.4-10.4); Monocytes Absolute Auto 0.5 K/mm3 (0.1-0.6); Monocytes Percent Auto 4.4 % (2.6-8.5); Neutrophils Absolute Auto 9.2 K/mm3 (1.3-6.7); Neutrophils Percent Auto 81.2 % (45.5-73.1); Platelet Count Result 214 k/mm3 (150-375); Red Blood Count 3.11 M/mm3 (4.2-5.4); Red Cell Distribution Width 14.6 % (11.5-14.5); White Blood Count 11.3 K/mm3 (4.5-10.0)
[2021-11-07 06:19] LABS: Alanine Aminotransferase 22 U/L (6-35); Albumin Level 3.2 g/dL (3.5-5.1); Alkaline Phosphatase 81 U/L (38-126); Anion Gap 9 mmol/L (8-16); Aspartate Amino Transferase 26 U/L (14-36); Bilirubin,Total 0.2 mg/dL (0.2-1.3); Blood Urea Nitrogen 42 mg/dL (7-17); Calcium 8.5 mg/dL (8.4-10.2); Carbon Dioxide 27 mmol/L (22-30); Chloride 108 mmol/L (98-107); Estimated CRCL calculation 20 ml/min; Estimated Glomerular Filt Rate 27; Glucose 175 mg/dL (65-110); Potassium 3.8 mmol/L (3.4-5.0); Sodium 144 mmol/L (137-145)
[2021-11-07 07:18] LABS: Band Neutrophils Percent 8 % (0-6); Lymphocytes Absolute Manual 1.46 K/mm3 (1.1-4.5); Monocytes Absolute Manual 0.33 K/mm3 (0.1-0.90); Monocytes Percent Manual 3 % (3-9); Neutrophils Absolute Manual 9.49 K/mm3 (1.7-7.2); Neutrophils Percent Manual 76 % (46-73); Total Cells Counted 100
[2021-11-07 07:19] LABS: Platelet Estimate Adequate (Adequate)
[2021-11-07 07:20] LABS: Anisocytosis 1+ (NORMAL); Hypochromasia 2+ (NORMAL)
[2021-11-07 07:46] LABS: Glucose Point of Care 218 mg/dl (65-105)
[2021-11-07] MEDS: carvediloL 3.125 MG TABLET PO ×2 (08:10→20:35)
[2021-11-07] MEDS: FAMOTIDINE 20 MG TABLET PO (08:10)
[2021-11-07] MEDS: MULTIVITAMINS THERAPEUTIC TAB (*BKC) 1 TABLET PO (08:10)
[2021-11-07] MEDS: FERROUS SULFATE 324 MG TABLET PO (08:10)
[2021-11-07] MEDS: INSULIN ASPART (*BKC) 100 UNITS/ML SUB-Q ×2 (08:11→12:25)
--- NOTE | 2021-11-07 10:06 | PCPTNOTE ---
Attempted PT evaluation, patient unable to be aroused. Spoke with hospitalist about discharging orders until patient becomes appropriate - Hospitalist Romelia Kimbrough agreed. PT order discharged at this time.
--- NOTE | 2021-11-07 10:16 | PCOTNOTE ---
Attempted OT evaluation, patient unable to be aroused. Physical therapist spoke with hospitalist about discharging orders until patient becomes appropriate - Hospitalist Romelia Kimbrough agreed. OT order discharged at this time.
--- NOTE | 2021-11-07 10:33 | PM.IMPN ---
Progress Note: A&P Assessment and Plan (1) Acute metabolic encephalopathy: Code(s): G93.41 - Metabolic encephalopathy Status: Acute Assessment and Plan: -secondary to PNA? -final urine culture negative -BC NGTD -no focal defecits noted -CT head, ABG unremarkable -spiked fevers overnight, could be secondary to infection -much more alert today though still confused (2) Fever: Code(s): R50.9 - Fever, unspecified Status: Acute Assessment and Plan: -spiked fever up to 101.7 last night -has been on Cefepime, Vanc, and Levaquin x3 days -urine culture and blood cultures negative -will repeat blood cultures and urine culture, also ordered fungal cultures and lactic acid -could also be from acute DVT (3) HCAP (healthcare-associated pneumonia): Code(s): J18.9 - Pneumonia, unspecified organism Status: Acute Assessment and Plan: Recent hospitalization (October 11) for pneumonia and sepsis, stay in SNF, with 1 week history of worsening cough and sputum production. The patient was given Levaquin in the emergency room. Started empiric HAP coverage as below. ABx cefepime, vancomycin, levaquin PRN nebs Trend infectious markers Blood cultures and sputum cultures (4) Venous thrombosis: Code(s): I82.90 - Acute embolism and thrombosis of unspecified vein Status: Acute Assessment and Plan: Venous duplex lower extremities showed a thrombosed left PT vein. V/Q scan showed nondiagnostic (intermediate probability for pulmonary embolism). Given the lower extremity thrombosed Pt vein, patient was started on anticoagulation, so regardless she is being treated therapeutically in the event that she does indeed have a pulmonary embolism. Patient started on Eliquis 10 p.o. b.i.d x7 days then will transition to 5 bid per pharmacy recommendations (5) Congestive heart failure: Qualifiers: Heart failure type: diastolic Heart failure chronicity: chronic Qualified Code(s): I50.32 - Chronic diastolic (congestive) heart failure Code(s): I50.9 - Heart failure, unspecified Status: Acute Assessment and Plan: Vital signs are stable bNP mildly elevated at 275 in pt with stage IV CKD. July 2021 Echo showed showed grade 1 diastolic dysfunction with preserved ejection fraction. 158lbs on 11/04. Chest x-ray showed no other airspace opacities, pulmonary edema, pleural effusion or pneumothorax. Continue with Coreg. Daily weights I & Os Monitor renal functions closely. D/C lasix (6) CKD (chronic kidney disease) stage 4, GFR 15-29 ml/min: Code(s): N18.4 - Chronic kidney disease, stage 4 (severe) Status: Acute Assessment and Plan: BUN/Cr today 42/2.2. Continue to monitor labs daily. Patient is near her baseline. Lasix discontinued (7) Anemia: Code(s): D64.9 - Anemia, unspecified Status: Acute Assessment and Plan: H&H low but stable. Prior to July of this year patient's normal hemoglobin was 10 to 11. Will follow results and consult GI as appropriate. Daily labs Fecal occult blood negative Continue to monitor, has remained stable thus far (8) Hypertension: Code(s): I10 - Essential (primary) hypertension Status: Acute Assessment and Plan: Continue with Coreg. (9) Generalized muscle weakness: Code(s): M62.81 - Muscle weakness (generalized) Status: Acute Assessment and Plan: PT and OT Evaluation was ordered but on hold until patient is more alert (10) Transaminitis: Code(s): R74.01 - Elevation of levels of liver transaminase levels Status: Acute Assessment and Plan: Mild transaminitis noted. New during this admission. She is asymptomatic at this time. RUQ ultrasound showed no sonographic concerns or correlation for the patient's symptoms. Hepatitis panel negative (11
[2021-11-07 11:18] LABS: Lactic Acid Reflex 1.9 mmol/L (0.7-2.0)
[2021-11-07 11:23] LABS: Glucose Point of Care 247 mg/dl (65-105)
[2021-11-07 12:57] LABS: Add Urine Microscopic? YES; Appearance Urine Cloudy (Clear); Bilirubin Urine Negative (Negative); Blood Urine 2+ (Negative); Color Urine Yellow (Yellow); Glucose Urine UA Trace mg/dL (Negative); Ketones Urine Negative (Negative); Leukocyte Esterase Ur 1+ LEU/UL (Negative); Nitrate Urine Negative (Negative); Protein Urine 3+ mg/dL (Negative); Specific Grav Ur 1.025 (1.001-1.035); Urobilinogen Urine 0.2 mg/dL (<2.0)
[2021-11-07 13:03] LABS: Mucus Urine Rare /lpf; WBC Urine >75 /hpf
[2021-11-07 13:17] LABS: Influenza Control Positive
[2021-11-07 15:36] LABS: Vancomycin Trough 15.9 ug/mL (10.0-20.0)
[2021-11-07 16:39] LABS: Glucose Point of Care 198 mg/dl (65-105)
[2021-11-07] MEDS: APIXABAN 5 MG TABLET 10 MG PO (20:29)
[2021-11-07] MEDS: ATORVASTATIN 40 MG TABLET PO (20:30)
[2021-11-07] MEDS: PREGABALIN (*CRX) 75 MG CAPSULE 150 MG PO (20:30)
[2021-11-07 20:35] LABS: Glucose Point of Care 213 mg/dl (65-105)
[2021-11-07] MEDS: INSULIN GLARGINE (*BKC) 100 UNITS/ML 30 UNITS SUB-Q (20:36)
[2021-11-08] VITALS (11 sets, daily range): BP systolic 127–139; BP diastolic 48–52; PULSE 70–85; RESP 16–21; TEMP 35.9–36.6; O2SAT 75–100
--- NOTE | 2021-11-08 01:32 | PCRCNOTE ---
Pt on overnight sleep study to screen for JUDIT. Study started on RA. At approximately 01:20, spot check on O2 saturation found pt to have an O2 saturation of 75%. 2L NC was added. Pt sat increased to 90%.
--- NOTE | 2021-11-08 01:34 | PCRCNOTE ---
Pt's 02:00 nebulizer treatment not administered. Pt on overnight ApneaLink to screen for JUDIT. Pt not to be disturbed during study.
--- NOTE | 2021-11-08 04:57 | PCRCNOTE ---
Pt started ApneaLink on room air. At approximately 02:20, an oxygen saturation spot check was performed and pt was found to have an oxygen saturation of 75%. Pt was placed on 2L NC without interruption to the sleep study. Pt spent remainder of study on 2L NC with periodic spot checks to confirm acceptable oxygen saturation.
[2021-11-08 06:40] LABS: Basophils Percent Auto 0.2 % (0.2-1.2); Eosinophils Absolute Auto 0.2 K/mm3 (0-0.3); Eosinophils Percent Auto 1.4 % (0-4.4); Hematocrit 27.6 % (37.0-47.0); Hemoglobin 8.5 g/dL (12.0-15.0); Immature Granulocyte Absolute 0.05 K/mm3 (0.00-0.031); Immature Granulocyte Percent A 0.4 % (0-0.5); Lymphocytes Absolute Auto 1.89 K/mm3 (0.9-3.2); Lymphocytes Percent Auto 15.2 % (18.3-44.2); Mean Corpuscular HGB Conc 30.8 g/dl (32-36); Mean Corpuscular Hemoglobin 29.1 pg (26-34); Mean Corpuscular Volume 94.5 fl (80-100); Mean Platelet Volume 11.4 fl (7.4-10.4); Monocytes Absolute Auto 0.7 K/mm3 (0.1-0.6); Monocytes Percent Auto 5.7 % (2.6-8.5); Neutrophils Absolute Auto 9.6 K/mm3 (1.3-6.7); Neutrophils Percent Auto 77.1 % (45.5-73.1); Platelet Count Result 196 k/mm3 (150-375); Red Blood Count 2.92 M/mm3 (4.2-5.4); Red Cell Distribution Width 14.6 % (11.5-14.5); White Blood Count 12.4 K/mm3 (4.5-10.0)
[2021-11-08 06:47] LABS: Alanine Aminotransferase 21 U/L (6-35); Albumin Level 3.2 g/dL (3.5-5.1); Alkaline Phosphatase 76 U/L (38-126); Anion Gap 6 mmol/L (8-16); Aspartate Amino Transferase 30 U/L (14-36); Bilirubin,Total 0.2 mg/dL (0.2-1.3); Blood Urea Nitrogen 52 mg/dL (7-17); Calcium 8.4 mg/dL (8.4-10.2); Carbon Dioxide 28 mmol/L (22-30); Chloride 107 mmol/L (98-107); Estimated CRCL calculation 18 ml/min; Estimated Glomerular Filt Rate 24; Glucose 137 mg/dL (65-110); Sodium 141 mmol/L (137-145)
--- NOTE | 2021-11-08 07:23 | PM.IMPN ---
Progress Note: A&P Assessment and Plan (1) Acute metabolic encephalopathy: Code(s): G93.41 - Metabolic encephalopathy Status: Acute Assessment and Plan: -secondary to PNA? - Repeat UA showed blood, leuk esterase and >75 WBC. Repeat Culture Pending. - Continue broad spectrum antibiotics and adjust as needed. -BC NGTD -no focal defecits noted -CT head, ABG unremarkable -spiked fevers overnight on 11/07, could be secondary to infection (2) Fever: Code(s): R50.9 - Fever, unspecified Status: Acute Assessment and Plan: -Increasing WBC today 12.4 (11.3) - Afebrile today. -has been on Cefepime, Vanc, and Levaquin x4 days -urine culture and blood cultures negative to date. -Repeat blood/urine culture pending. Also ordered fungal cultures -could also be from acute DVT -Lactic Acid 1.9 (3) HCAP (healthcare-associated pneumonia): Code(s): J18.9 - Pneumonia, unspecified organism Status: Acute Assessment and Plan: Recent hospitalization (October 11) for pneumonia and sepsis, stay in SNF, with 1 week history of worsening cough and sputum production. The patient was given Levaquin in the emergency room. Started empiric HAP coverage as below. Oxygenating 94% on 2L supplemental O2. ABx cefepime, vancomycin, levaquin PRN nebs Trend infectious markers Blood cultures and sputum cultures (4) Venous thrombosis: Code(s): I82.90 - Acute embolism and thrombosis of unspecified vein Status: Acute Assessment and Plan: Venous duplex lower extremities showed a thrombosed left PT vein. V/Q scan showed nondiagnostic (intermediate probability for pulmonary embolism). Given the lower extremity thrombosed Pt vein, patient was started on anticoagulation, so regardless she is being treated therapeutically in the event that she does indeed have a pulmonary embolism. Patient started on Eliquis 10 p.o. b.i.d x7 days then will transition to 5 bid per pharmacy recommendations (5) Congestive heart failure: Qualifiers: Heart failure chronicity: chronic Heart failure type: diastolic Qualified Code(s): I50.32 - Chronic diastolic (congestive) heart failure Code(s): I50.9 - Heart failure, unspecified Status: Acute Assessment and Plan: Vital signs are stable bNP mildly elevated at 275 in pt with stage IV CKD. July 2021 Echo showed showed grade 1 diastolic dysfunction with preserved ejection fraction. 154lb today, 158lbs on 11/04. Chest x-ray showed no other airspace opacities, pulmonary edema, pleural effusion or pneumothorax. Continue with Coreg. Daily weights I & Os Monitor renal functions closely. D/C lasix (6) CKD (chronic kidney disease) stage 4, GFR 15-29 ml/min: Code(s): N18.4 - Chronic kidney disease, stage 4 (severe) Status: Acute Assessment and Plan: BUN/Cr worse today 52/2.4 (42/2.2). Continue to monitor labs daily. Patient is near her baseline. Lasix discontinued Gentle IV fluids resuscitation today only. (7) Anemia: Code(s): D64.9 - Anemia, unspecified Status: Acute Assessment and Plan: H&H low but stable. Prior to July of this year patient's normal hemoglobin was 10 to 11. Will follow results and consult GI as appropriate. Daily labs Fecal occult blood negative Continue to monitor, has remained stable thus far (8) Hypertension: Code(s): I10 - Essential (primary) hypertension Status: Acute Assessment and Plan: Continue with Coreg. (9) Generalized muscle weakness: Code(s): M62.81 - Muscle weakness (generalized) Status: Acute Assessment and Plan: PT and OT Evaluation was ordered but on hold until patient is more alert (10) Transaminitis: Code(s): R74.01 - Elevation of levels of liver transaminase levels Status: Acute Assessment and Plan: Mild transam
[2021-11-08 07:33] LABS: Glucose Point of Care 145 mg/dl (65-105)
[2021-11-08] MEDS: SODIUM CHLORIDE 0.9% IV 500 ML 100 ML IV CONT (07:53)
[2021-11-08] MEDS: MULTIVITAMINS THERAPEUTIC TAB (*BKC) 1 TABLET PO (07:57)
[2021-11-08] MEDS: APIXABAN 5 MG TABLET 10 MG PO ×2 (07:57→21:20)
[2021-11-08] MEDS: FAMOTIDINE 20 MG TABLET PO (07:57)
[2021-11-08] MEDS: carvediloL 3.125 MG TABLET PO ×2 (07:58→21:19)
[2021-11-08] MEDS: FERROUS SULFATE 324 MG TABLET PO (08:03)
[2021-11-08] MEDS: BENZONATATE 100 MG CAPSULE PO ×2 (08:09→23:26)
[2021-11-08 08:45] LABS: Platelet Estimate Adequate (Adequate)
[2021-11-08 08:46] LABS: Hypochromasia 1+ (NORMAL); Microcytosis 1+ (NORMAL); Schistocytes 1+ (NORMAL)
[2021-11-08 11:44] LABS: Glucose Point of Care 179 mg/dl (65-105)
--- NOTE | 2021-11-08 15:40 | PCRCNOTE ---
Window of time for administration has passed. See next scheduled administration.
[2021-11-08 16:37] LABS: Glucose Point of Care 217 mg/dl (65-105)
[2021-11-08] MEDS: INSULIN ASPART (*BKC) 100 UNITS/ML SUB-Q (16:37)
[2021-11-08] MEDS: IPRATROPIUM BR 0.02% INH SOLN 0.5 MG/2.5 ML VIAL INHALATION (19:47)
[2021-11-08] MEDS: ALBUTEROL SULFATE NEB 2.5 MG/3 ML INH INHALATION (19:47)
[2021-11-08] MEDS: PREGABALIN (*CRX) 75 MG CAPSULE 150 MG PO (21:19)
[2021-11-08] MEDS: ATORVASTATIN 40 MG TABLET PO (21:19)
[2021-11-08] MEDS: guaiFENesin 12 HR 600 MG TABCR 1200 MG PO (21:19)
[2021-11-08] MEDS: risperiDONE 1 MG TABLET 2 MG PO (21:20)
[2021-11-08] MEDS: INSULIN GLARGINE (*BKC) 100 UNITS/ML 30 UNITS SUB-Q (21:35)
[2021-11-08 22:05] LABS: Glucose Point of Care 252 mg/dl (65-105)
[2021-11-09] VITALS (17 sets, daily range): BP systolic 116–143; BP diastolic 53–90; PULSE 63–88; RESP 16–22; TEMP 36.3–37.1; O2SAT 94–100
[2021-11-09] MEDS: ALBUTEROL SULFATE NEB 2.5 MG/3 ML INH INHALATION ×4 (01:15→20:15)
[2021-11-09] MEDS: IPRATROPIUM BR 0.02% INH SOLN 0.5 MG/2.5 ML VIAL INHALATION ×4 (01:15→20:15)
[2021-11-09 07:30] LABS: Glucose Point of Care 158 mg/dl (65-105)
[2021-11-09] MEDS: APIXABAN 5 MG TABLET 10 MG PO ×2 (08:55→21:12)
[2021-11-09] MEDS: guaiFENesin 12 HR 600 MG TABCR 1200 MG PO ×2 (08:55→21:11)
[2021-11-09] MEDS: MULTIVITAMINS THERAPEUTIC TAB (*BKC) 1 TABLET PO (08:55)
[2021-11-09] MEDS: FAMOTIDINE 20 MG TABLET PO (08:55)
[2021-11-09] MEDS: FERROUS SULFATE 324 MG TABLET PO (08:55)
[2021-11-09] MEDS: carvediloL 3.125 MG TABLET PO ×2 (08:56→21:11)
[2021-11-09 11:40] LABS: Glucose Point of Care 213 mg/dl (65-105)
[2021-11-09] MEDS: INSULIN ASPART (*BKC) 100 UNITS/ML SUB-Q ×2 (11:59→16:35)
--- NOTE | 2021-11-09 12:30 | PM.IMPN ---
Progress Note: A&P Assessment and Plan (1) Acute metabolic encephalopathy: Code(s): G93.41 - Metabolic encephalopathy Status: Acute Assessment and Plan: -Resolving -Confusion secondary to pneumonia -CT head was normal -Spiked fevers in 11/07 improving (2) Fever: Code(s): R50.9 - Fever, unspecified Status: Acute Assessment and Plan: -Increasing WBC today 12.4 (11.3) -afebrile today. -has been on Cefepime, Vancomycin, and Levaquin x4 days -urine culture and blood cultures negative to date. -repeat cultures are pending (3) HCAP (healthcare-associated pneumonia): Code(s): J18.9 - Pneumonia, unspecified organism Status: Acute Assessment and Plan: Recent hospitalization (October 11) for pneumonia and sepsis, stay in SNF, with 1 week history of worsening cough and sputum production. . ABx cefepime, vancomycin, levaquin PRN nebs Follow Rpt Blood cultures and sputum cultures Add Harshal Serrato order CXr or catherine am (4) Venous thrombosis: Code(s): I82.90 - Acute embolism and thrombosis of unspecified vein Status: Acute Assessment and Plan: Venous duplex lower extremities showed a thrombosed left PT vein. Patient started on Eliquis 10 p.o. b.i.d x7 days then will transition to 5 bid per pharmacy recommendations (5) Congestive heart failure: Qualifiers: Heart failure type: diastolic Heart failure chronicity: chronic Qualified Code(s): I50.32 - Chronic diastolic (congestive) heart failure Code(s): I50.9 - Heart failure, unspecified Status: Acute Assessment and Plan: Vital signs are stable bNP mildly elevated at 275 in pt with stage IV CKD. July 2021 Echo showed showed grade 1 diastolic dysfunction with preserved ejection fraction. Continue with Coreg. (6) CKD (chronic kidney disease) stage 4, GFR 15-29 ml/min: Code(s): N18.4 - Chronic kidney disease, stage 4 (severe) Status: Acute Assessment and Plan: Creat is worsening Creat is 2.4 continue to monitor lasix stopped (7) Anemia: Code(s): D64.9 - Anemia, unspecified Status: Acute Assessment and Plan: H&H low but stable is 8 (8) Hypertension: Code(s): I10 - Essential (primary) hypertension Status: Acute Assessment and Plan: Continue with Coreg. (9) Generalized muscle weakness: Code(s): M62.81 - Muscle weakness (generalized) Status: Acute Assessment and Plan: PT and OT Evaluation (10) Transaminitis: Code(s): R74.01 - Elevation of levels of liver transaminase levels Status: Acute Assessment and Plan: Mild transaminitis noted. RUQ ultrasound showed no sonographic concerns or correlation for the patient's symptoms. Hepatitis panel negative (11) Diabetes: Code(s): E11.9 - Type 2 diabetes mellitus without complications Status: Acute Assessment and Plan: 7.5 A1c on 08/2021 Accu-Cheks AC and HS. Continue with Lantus. Diabetic diet (12) DVT prophylaxis: Code(s): Z29.9 - Encounter for prophylactic measures, unspecified Status: Acute Assessment and Plan: Patient started on Eliquis during her stay due to venous duplex finding of thrombosed left PT vein. (13) Schizophrenia: Code(s): F20.9 - Schizophrenia, unspecified Status: Acute Assessment and Plan: Continue with risperidone (14) Constipation: Code(s): K59.00 - Constipation, unspecified Status: Acute Assessment and Plan: MiraLax and Colace b.i.d. Subjective Date/time seen: 11/09/21 12:30 Interval history: 71-year-old female with history of anemia, chronic kidney disease stage 4, dementia, diabetes, schizophrenia, and pneumonia last diagnosed 1 month ago, presents here for cough and increased sputum x
[2021-11-09] MEDS: BENZONATATE 100 MG CAPSULE PO (15:24)
[2021-11-09 16:31] LABS: Glucose Point of Care 202 mg/dl (65-105)
[2021-11-09] MEDS: ACETAMINOPHEN 325 MG TABLET 650 MG PO (17:44)
[2021-11-09 20:03] LABS: Glucose Point of Care 213 mg/dl (65-105)
[2021-11-09] MEDS: ATORVASTATIN 40 MG TABLET PO (21:11)
[2021-11-09] MEDS: PREGABALIN (*CRX) 75 MG CAPSULE 150 MG PO (21:11)
[2021-11-09] MEDS: risperiDONE 1 MG TABLET 2 MG PO (21:12)
[2021-11-09] MEDS: INSULIN GLARGINE (*BKC) 100 UNITS/ML 30 UNITS SUB-Q (21:20)
[2021-11-10] VITALS (11 sets, daily range): BP systolic 123–159; BP diastolic 58–74; PULSE 64–90; RESP 14–22; TEMP 36.2–36.6; O2SAT 95–100
[2021-11-10] MEDS: IPRATROPIUM BR 0.02% INH SOLN 0.5 MG/2.5 ML VIAL INHALATION ×3 (02:12→19:26)
[2021-11-10] MEDS: ALBUTEROL SULFATE NEB 2.5 MG/3 ML INH INHALATION ×2 (02:12→14:00)
[2021-11-10 07:34] LABS: Anion Gap 8 mmol/L (8-16); Blood Urea Nitrogen 60 mg/dL (7-17); Calcium 8.6 mg/dL (8.4-10.2); Carbon Dioxide 24 mmol/L (22-30); Chloride 108 mmol/L (98-107); Estimated CRCL calculation 20 ml/min; Estimated Glomerular Filt Rate 28; Glucose 149 mg/dL (65-110); Potassium 4.4 mmol/L (3.4-5.0); Sodium 140 mmol/L (137-145)
[2021-11-10 09:35] LABS: Glucose Point of Care 143 mg/dl (65-105)
[2021-11-10] MEDS: APIXABAN 5 MG TABLET 10 MG PO ×2 (09:49→20:36)
[2021-11-10] MEDS: carvediloL 3.125 MG TABLET PO ×2 (09:50→20:37)
[2021-11-10] MEDS: MULTIVITAMINS THERAPEUTIC TAB (*BKC) 1 TABLET PO (09:50)
[2021-11-10] MEDS: FERROUS SULFATE 324 MG TABLET PO (09:50)
[2021-11-10] MEDS: guaiFENesin 12 HR 600 MG TABCR 1200 MG PO ×2 (09:50→20:36)
[2021-11-10] MEDS: FAMOTIDINE 20 MG TABLET PO (09:50)
--- NOTE | 2021-11-10 10:00 | PM.IMPN ---
Progress Note: A&P Assessment and Plan (1) Acute metabolic encephalopathy: Code(s): G93.41 - Metabolic encephalopathy Status: Acute Assessment and Plan: -Resolving -Confusion secondary to pneumonia -CT head was normal -Spiked fevers in 11/07 improving - 11/10/21: Encephalopathy waxing and waning. She was forgetful today that she had PNA and wondered what needed to be done about it. (2) Fever: Qualifiers: Fever type: unspecified Qualified Code(s): R50.9 - Fever, unspecified Code(s): R50.9 - Fever, unspecified Status: Acute Assessment and Plan: -Increasing WBC today 12.4 (11.3) -afebrile today. -has been on Cefepime, Vancomycin, and Levaquin x4 days -urine culture and blood cultures negative to date. -repeat cultures are pending - 11/10/21: Continue with Cefepime, Levaquin and Vancomycin. BC results are still pending. Pt. not meeting SIRS/Sepsis criteria at this time. Continue to monitor VS and labs. (3) HCAP (healthcare-associated pneumonia): Code(s): J18.9 - Pneumonia, unspecified organism Status: Acute Assessment and Plan: Recent hospitalization (October 11) for pneumonia and sepsis, stay in SNF, with 1 week history of worsening cough and sputum production. . ABx cefepime, vancomycin, levaquin PRN nebs Follow Rpt Blood cultures and sputum cultures Add Harshal Serrato order CXr or catherine am - 11/10/21: Continue with Cefepime, Levaquin and Vancomycin. BC results are still pending. Pt. not meeting SIRS/Sepsis criteria at this time. Continue to monitor VS and labs. Continue nebs and mucinex. Attempt to wean oxygen. Sputum showed mixed radha and her final urine does not demonstrate any growth either. (4) Venous thrombosis: Code(s): I82.90 - Acute embolism and thrombosis of unspecified vein Status: Acute Assessment and Plan: Venous duplex lower extremities showed a thrombosed left PT vein. Patient started on Eliquis 10 p.o. b.i.d x7 days then will transition to 5 bid per pharmacy recommendations - 11/10/21: Continue 10 mg until 11/12/21 and then transition to 5 mg. (5) Congestive heart failure: Qualifiers: Heart failure type: diastolic Heart failure chronicity: chronic Qualified Code(s): I50.32 - Chronic diastolic (congestive) heart failure Code(s): I50.9 - Heart failure, unspecified Status: Acute Assessment and Plan: Vital signs are stable bNP mildly elevated at 275 in pt with stage IV CKD. July 2021 Echo showed showed grade 1 diastolic dysfunction with preserved ejection fraction. Continue with Coreg. (6) CKD (chronic kidney disease) stage 4, GFR 15-29 ml/min: Code(s): N18.4 - Chronic kidney disease, stage 4 (severe) Status: Acute Assessment and Plan: Creat is worsening Creat is 2.4 continue to monitor lasix stopped - 11/10/21: Creatinine is improving slowly. Today it is 2.10 and her BUN is 60 with a GFR of 149. Abx are renally dosed. Will monitor VS and labs. (7) Anemia: Qualifiers: Anemia type: unspecified type Qualified Code(s): D64.9 - Anemia, unspecified Code(s): D64.9 - Anemia, unspecified Status: Acute Assessment and Plan: H&H low but stable is 8 - 11/10/21: Chronic in nature. Will continue to monitor with labs. No overt bleeding. (8) Hypertension: Qualifiers: Hypertension type: unspecified Qualified Code(s): I10 - Essential (primary) hypertension Code(s): I10 - Essential (primary) hypertension Status: Acute Assessment and Plan: Continue with Coreg. (9) Generalized muscle weakness: Code(s): M62.81 - Muscle weakness (generalized) Status: Acute Assessment and Plan: PT and OT Evaluation (10) Transaminitis: Code(s): R74.01 - Elevation of levels of liver transaminase levels Status: Acute Asses
[2021-11-10 11:52] LABS: Glucose Point of Care 196 mg/dl (65-105)
[2021-11-10 16:30] LABS: Glucose Point of Care 286 mg/dl (65-105)
[2021-11-10] MEDS: INSULIN ASPART (*BKC) 100 UNITS/ML SUB-Q (16:33)
[2021-11-10] MEDS: BENZONATATE 100 MG CAPSULE PO (16:37)
[2021-11-10] MEDS: ALBUTEROL SULFATE NEB 2.5 MG/0.5 ML INH (19:26)
[2021-11-10] MEDS: ATORVASTATIN 40 MG TABLET PO (20:37)
[2021-11-10] MEDS: risperiDONE 1 MG TABLET 2 MG PO (20:37)
[2021-11-10] MEDS: INSULIN GLARGINE (*BKC) 100 UNITS/ML 30 UNITS SUB-Q (20:40)
[2021-11-10] MEDS: PREGABALIN (*CRX) 75 MG CAPSULE 150 MG PO (20:40)
[2021-11-10 20:52] LABS: Glucose Point of Care 334 mg/dl (65-105)
[2021-11-11] VITALS (14 sets, daily range): BP systolic 141–151; BP diastolic 57–61; PULSE 70–82; RESP 16–18; TEMP 36–36.4; O2SAT 93–100
[2021-11-11] MEDS: IPRATROPIUM BR 0.02% INH SOLN 0.5 MG/2.5 ML VIAL INHALATION ×4 (01:57→19:21)
[2021-11-11] MEDS: ALBUTEROL SULFATE NEB 2.5 MG/0.5 ML INH ×2 (01:57→15:02)
[2021-11-11 06:22] LABS: Basophils Percent Auto 0.2 % (0.2-1.2); Eosinophils Absolute Auto 0.3 K/mm3 (0-0.3); Hemoglobin 8.3 g/dL (12.0-15.0); Immature Granulocyte Absolute 0.04 K/mm3 (0.00-0.031); Immature Granulocyte Percent A 0.4 % (0-0.5); Lymphocytes Absolute Auto 2.04 K/mm3 (0.9-3.2); Lymphocytes Percent Auto 19.3 % (18.3-44.2); Mean Corpuscular HGB Conc 30.7 g/dl (32-36); Mean Corpuscular Hemoglobin 28.9 pg (26-34); Mean Corpuscular Volume 94.1 fl (80-100); Mean Platelet Volume 10.4 fl (7.4-10.4); Monocytes Absolute Auto 0.7 K/mm3 (0.1-0.6); Monocytes Percent Auto 6.6 % (2.6-8.5); Neutrophils Absolute Auto 7.4 K/mm3 (1.3-6.7); Neutrophils Percent Auto 70.5 % (45.5-73.1); Platelet Count Result 244 k/mm3 (150-375); Red Blood Count 2.87 M/mm3 (4.2-5.4); Red Cell Distribution Width 14.1 % (11.5-14.5); White Blood Count 10.6 K/mm3 (4.5-10.0)
[2021-11-11 06:35] LABS: Alanine Aminotransferase 25 U/L (6-35); Albumin Level 3.2 g/dL (3.5-5.1); Alkaline Phosphatase 142 U/L (38-126); Anion Gap 7 mmol/L (8-16); Aspartate Amino Transferase 24 U/L (14-36); Bilirubin,Total 0.2 mg/dL (0.2-1.3); Blood Urea Nitrogen 59 mg/dL (7-17); Calcium 8.9 mg/dL (8.4-10.2); Carbon Dioxide 25 mmol/L (22-30); Chloride 111 mmol/L (98-107); Estimated CRCL calculation 20 ml/min; Estimated Glomerular Filt Rate 28; Glucose 244 mg/dL (65-110); Magnesium 2.7 mg/dL (1.6-2.3); Potassium 4.2 mmol/L (3.4-5.0); Sodium 143 mmol/L (137-145)
[2021-11-11 07:46] LABS: Glucose Point of Care 213 mg/dl (65-105)
[2021-11-11] MEDS: INSULIN ASPART (*BKC) 100 UNITS/ML SUB-Q ×3 (07:51→16:40)
[2021-11-11] MEDS: ACETAMINOPHEN 325 MG TABLET 650 MG PO (07:55)
[2021-11-11] MEDS: carvediloL 3.125 MG TABLET PO ×2 (08:01→21:01)
[2021-11-11] MEDS: MULTIVITAMINS THERAPEUTIC TAB (*BKC) 1 TABLET PO (08:02)
[2021-11-11] MEDS: guaiFENesin 12 HR 600 MG TABCR 1200 MG PO ×2 (08:02→21:01)
[2021-11-11] MEDS: FERROUS SULFATE 324 MG TABLET PO (08:02)
[2021-11-11] MEDS: APIXABAN 5 MG TABLET 10 MG PO ×2 (08:02→21:01)
[2021-11-11] MEDS: FAMOTIDINE 20 MG TABLET PO (08:02)
[2021-11-11] MEDS: ALBUTEROL SULFATE NEB 2.5 MG/3 ML INH INHALATION ×3 (08:25→19:21)
[2021-11-11 12:04] LABS: Glucose Point of Care 219 mg/dl (65-105)
--- NOTE | 2021-11-11 12:28 | PM.IMPN ---
Progress Note: A&P Assessment and Plan (1) Acute metabolic encephalopathy: Code(s): G93.41 - Metabolic encephalopathy Status: Acute Assessment and Plan: Improved (2) Fever: Qualifiers: Fever type: unspecified Qualified Code(s): R50.9 - Fever, unspecified Code(s): R50.9 - Fever, unspecified Status: Acute Assessment and Plan: Monitor (3) HCAP (healthcare-associated pneumonia): Code(s): J18.9 - Pneumonia, unspecified organism Status: Acute Assessment and Plan: Continue IV antibiotics Vanc cefepime Levaquin (4) Venous thrombosis: Code(s): I82.90 - Acute embolism and thrombosis of unspecified vein Status: Acute Assessment and Plan: Continue Eliquis (5) Congestive heart failure: Qualifiers: Heart failure type: diastolic Heart failure chronicity: chronic Qualified Code(s): I50.32 - Chronic diastolic (congestive) heart failure Code(s): I50.9 - Heart failure, unspecified Status: Acute Assessment and Plan: Appears compensated (6) CKD (chronic kidney disease) stage 4, GFR 15-29 ml/min: Code(s): N18.4 - Chronic kidney disease, stage 4 (severe) Status: Acute Assessment and Plan: At baseline of creatinine of 2.1 (7) Anemia: Qualifiers: Anemia type: unspecified type Qualified Code(s): D64.9 - Anemia, unspecified Code(s): D64.9 - Anemia, unspecified Status: Acute Assessment and Plan: Monitor, chronic (8) Hypertension: Qualifiers: Hypertension type: unspecified Qualified Code(s): I10 - Essential (primary) hypertension Code(s): I10 - Essential (primary) hypertension Status: Acute Assessment and Plan: Continue with Coreg. 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 - 11/10/21: Continue Eliquis dosing as noted above. (13) Schizophrenia: Qualifiers: Schizophrenia type: unspecified Qualified Code(s): F20.9 - Schizophrenia, unspecified Code(s): F20.9 - Schizophrenia, unspecified Status: Acute Assessment and Plan: Continue with risperidone - 11/10/21: Stable and not currently problematic. (14) Constipation: Code(s): K59.00 - Constipation, unspecified Status: Acute Assessment and Plan: Monitor Subjective Date/time seen: 11/11/21 12:28 No new complaint Exam Narrative: General: Overweight lady, with wet cough Respiratory: Expiratory rhonchi throughout chest Cardiovascular: RRR Abdominal: Soft, nontender, non distended Musculoskeletal: Moves all 4 extremities, No LE edema Neurological: alert to self and knows she is in the hospital but is not oriented otherwise. 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 5/5 strength BUE and BLE. Skin: Warm, dry, no rashes Psychiatric: Tired not confused Const: General: cooperative, comfortable, no acute distress, well developed, alert, awake and Physically active Nutritional Appearance: average body habitus Orientation/consciousness: orien
[2021-11-11 15:47] LABS: Vancomycin Trough 24.4 ug/mL (10.0-20.0)
[2021-11-11 16:32] LABS: Glucose Point of Care 263 mg/dl (65-105)
[2021-11-11] MEDS: BENZONATATE 100 MG CAPSULE PO (16:36)
--- NOTE | 2021-11-11 19:40 | PHAR ---
HOME MED: TRULICITY (DULAGLUTIDE)0.75 MG/0.5 ML PEN - INJECT SQ ONCE WEEKLY. VERIFIED BY PHARMACY.
[2021-11-11] MEDS: ATORVASTATIN 40 MG TABLET PO (21:01)
[2021-11-11] MEDS: risperiDONE 1 MG TABLET 2 MG PO (21:01)
[2021-11-11] MEDS: PREGABALIN (*CRX) 75 MG CAPSULE 150 MG PO (21:01)
[2021-11-11] MEDS: INSULIN GLARGINE (*BKC) 100 UNITS/ML 30 UNITS SUB-Q (21:03)
[2021-11-11 21:17] LABS: Glucose Point of Care 258 mg/dl (65-105)
[2021-11-12] VITALS (16 sets, daily range): BP systolic 145–150; BP diastolic 60–62; PULSE 64–83; RESP 16–20; TEMP 35.9–36.4; O2SAT 86–100
[2021-11-12] MEDS: ALBUTEROL SULFATE NEB 2.5 MG/3 ML INH INHALATION ×3 (01:49→19:40)
[2021-11-12] MEDS: IPRATROPIUM BR 0.02% INH SOLN 0.5 MG/2.5 ML VIAL INHALATION ×4 (01:49→19:40)
[2021-11-12 06:21] LABS: Estimated CRCL calculation 23 ml/min; Estimated Glomerular Filt Rate 32
[2021-11-12 07:34] LABS: Glucose Point of Care 167 mg/dl (65-105)
[2021-11-12] MEDS: ALBUTEROL SULFATE NEB 2.5 MG/0.5 ML INH (08:24)
[2021-11-12] MEDS: carvediloL 3.125 MG TABLET PO ×2 (09:40→20:57)
[2021-11-12] MEDS: FAMOTIDINE 20 MG TABLET PO (09:42)
[2021-11-12] MEDS: MULTIVITAMINS THERAPEUTIC TAB (*BKC) 1 TABLET PO (09:42)
[2021-11-12] MEDS: BENZONATATE 100 MG CAPSULE PO (09:42)
[2021-11-12] MEDS: FERROUS SULFATE 324 MG TABLET PO (09:42)
[2021-11-12] MEDS: APIXABAN 5 MG TABLET 10 MG PO (09:44)
[2021-11-12] MEDS: guaiFENesin 12 HR 600 MG TABCR 1200 MG PO ×2 (09:48→20:57)
--- NOTE | 2021-11-12 10:04 | PM.IMPN ---
Progress Note: A&P Assessment and Plan (1) Acute metabolic encephalopathy: Code(s): G93.41 - Metabolic encephalopathy Status: Acute Assessment and Plan: Improved and resolved (2) Fever: Qualifiers: Fever type: unspecified Qualified Code(s): R50.9 - Fever, unspecified Code(s): R50.9 - Fever, unspecified Status: Acute Assessment and Plan: Monitor (3) HCAP (healthcare-associated pneumonia): Code(s): J18.9 - Pneumonia, unspecified organism Status: Acute Assessment and Plan: Continue IV antibiotics Levaquin Will be continued vanc and cefepime were previously had a but I stopped those to deescalate antibiotics respiratory status improved can likely be discharged within 2 days (4) Venous thrombosis: Code(s): I82.90 - Acute embolism and thrombosis of unspecified vein Status: Acute Assessment and Plan: Continue Eliquis (5) Congestive heart failure: Qualifiers: Heart failure type: diastolic Heart failure chronicity: chronic Qualified Code(s): I50.32 - Chronic diastolic (congestive) heart failure Code(s): I50.9 - Heart failure, unspecified Status: Acute Assessment and Plan: Appears compensated (6) CKD (chronic kidney disease) stage 4, GFR 15-29 ml/min: Code(s): N18.4 - Chronic kidney disease, stage 4 (severe) Status: Acute Assessment and Plan: At baseline of creatinine of 2.1 (7) Anemia: Qualifiers: Anemia type: unspecified type Qualified Code(s): D64.9 - Anemia, unspecified Code(s): D64.9 - Anemia, unspecified Status: Acute Assessment and Plan: Monitor, chronic (8) Hypertension: Qualifiers: Hypertension type: unspecified Qualified Code(s): I10 - Essential (primary) hypertension Code(s): I10 - Essential (primary) hypertension Status: Acute Assessment and Plan: Continue with Coreg. 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 - 11/10/21: Continue Eliquis dosing as noted above. (13) Schizophrenia: Qualifiers: Schizophrenia type: unspecified Qualified Code(s): F20.9 - Schizophrenia, unspecified Code(s): F20.9 - Schizophrenia, unspecified Status: Acute Assessment and Plan: Continue with risperidone - 11/10/21: Stable and not currently problematic. (14) Constipation: Code(s): K59.00 - Constipation, unspecified Status: Acute Assessment and Plan: Monitor Subjective Date/time seen: 11/12/21 10:04 and the patient reports that she does not feel well today. She is complaining of a cough which is new. Oxygenation is okay. Vitals are otherwise stable Review of Systems Review of Systems: All systems reviewed & are unremarkable except as noted in HPI and below ROS unobtainable: Yes unobtainable due to mental status Constitutional: Constitutional: Reports as per HPI and Reports no additional constitutional complaints Eyes: Eyes: Reports as per HPI and Reports no addition
--- NOTE | 2021-11-12 10:35 | PCNFU ---
Nutrition Follow-Up Complete: Increased nutrient needs related to wound healing as evidenced by pressure ulcer to heel Goal: Wound healing Patient is progressing towards goal. We will continue current goal. Pt current nutrition is DBCC Last recorded weight is 72.7 kg, down from 75.7 kg on admit. Bowel Motility:+Bm reported 11/11 Labs Reviewed:Cr 1.9,GFR 32 Meds Noted:MVI, Mucinex, Atrovent, Pepcid, Lipitor, Ferrous Sulfate, Coreg Skin: Unstageable PU-heel Additional Notes: Patient currently on a DBCC. Oral Intake 50-100% of most meals. Diet supplements of Glucerna Shakes once for additional 220 kcals and 10 gms protein. Protein Modular of Mat BID providing additional 90 kcals and 2.5 gms protein for wound healing. Agree with diet orders. Monitor intake of meals, wt, skin, labs. Follow up in 5 days.
[2021-11-12 11:33] LABS: Glucose Point of Care 213 mg/dl (65-105)
[2021-11-12] MEDS: INSULIN ASPART (*BKC) 100 UNITS/ML SUB-Q ×2 (12:10→16:53)
[2021-11-12 16:29] LABS: Glucose Point of Care 255 mg/dl (65-105)
[2021-11-12] MEDS: APIXABAN 5 MG TABLET PO (20:57)
[2021-11-12] MEDS: PREGABALIN (*CRX) 75 MG CAPSULE 150 MG PO (20:57)
[2021-11-12] MEDS: ATORVASTATIN 40 MG TABLET PO (20:57)
[2021-11-12] MEDS: risperiDONE 1 MG TABLET 2 MG PO (20:58)
[2021-11-12] MEDS: INSULIN GLARGINE (*BKC) 100 UNITS/ML 30 UNITS SUB-Q (20:59)
[2021-11-12 21:06] LABS: Glucose Point of Care 156 mg/dl (65-105)
[2021-11-13] VITALS (14 sets, daily range): BP systolic 142–160; BP diastolic 56–66; PULSE 72–90; RESP 12–18; TEMP 36–36.6; O2SAT 90–100
[2021-11-13] MEDS: IPRATROPIUM BR 0.02% INH SOLN 0.5 MG/2.5 ML VIAL INHALATION ×4 (02:20→20:05)
[2021-11-13] MEDS: ALBUTEROL SULFATE NEB 2.5 MG/3 ML INH INHALATION ×2 (02:20→20:05)
[2021-11-13 07:57] LABS: Glucose Point of Care 142 mg/dl (65-105)
[2021-11-13] MEDS: BENZONATATE 100 MG CAPSULE PO (08:40)
[2021-11-13] MEDS: carvediloL 3.125 MG TABLET PO ×2 (08:40→20:50)
[2021-11-13] MEDS: FAMOTIDINE 20 MG TABLET PO (08:40)
[2021-11-13] MEDS: FERROUS SULFATE 324 MG TABLET PO (08:40)
[2021-11-13] MEDS: APIXABAN 5 MG TABLET PO ×2 (08:42→20:50)
[2021-11-13] MEDS: guaiFENesin 12 HR 600 MG TABCR 1200 MG PO ×2 (08:43→20:50)
[2021-11-13] MEDS: MULTIVITAMINS THERAPEUTIC TAB (*BKC) 1 TABLET PO (08:43)
[2021-11-13] MEDS: ALBUTEROL SULFATE NEB 2.5 MG/0.5 ML INH ×2 (09:15→13:55)
[2021-11-13 11:33] LABS: Glucose Point of Care 218 mg/dl (65-105)
[2021-11-13] MEDS: INSULIN ASPART (*BKC) 100 UNITS/ML SUB-Q (11:48)
[2021-11-13 15:17] LABS: Reference Lab Test Result >150.00
--- NOTE | 2021-11-13 15:45 | PM.IMPN ---
Progress Note: A&P Assessment and Plan (1) Acute metabolic encephalopathy: Code(s): G93.41 - Metabolic encephalopathy Status: Acute Assessment and Plan: Improved and resolved (2) Fever: Qualifiers: Fever type: unspecified Qualified Code(s): R50.9 - Fever, unspecified Code(s): R50.9 - Fever, unspecified Status: Acute Assessment and Plan: Monitor (3) HCAP (healthcare-associated pneumonia): Code(s): J18.9 - Pneumonia, unspecified organism Status: Acute Assessment and Plan: Continue IV antibiotics Levaquin Will be continued vanc and cefepime were previously had a but I stopped those to deescalate antibiotics respiratory status improved can likely be discharged within 2 days. 11/13/2021 interval history: patient with a suspected healthcare associated, not treated with Levaquin, is feeling better denies any cough or shortness of breath, repeat chest x-ray in morning, and further recommendation to follow. will continue PT OT. patient will benefit from gentle rehab for strengthening. (4) Venous thrombosis: Code(s): I82.90 - Acute embolism and thrombosis of unspecified vein Status: Acute Assessment and Plan: Continue Eliquis (5) Congestive heart failure: Qualifiers: Heart failure type: diastolic Heart failure chronicity: chronic Qualified Code(s): I50.32 - Chronic diastolic (congestive) heart failure Code(s): I50.9 - Heart failure, unspecified Status: Acute Assessment and Plan: Appears compensated (6) CKD (chronic kidney disease) stage 4, GFR 15-29 ml/min: Code(s): N18.4 - Chronic kidney disease, stage 4 (severe) Status: Acute Assessment and Plan: At baseline of creatinine of 2.1 (7) Anemia: Qualifiers: Anemia type: unspecified type Qualified Code(s): D64.9 - Anemia, unspecified Code(s): D64.9 - Anemia, unspecified Status: Acute Assessment and Plan: Monitor, chronic (8) Hypertension: Qualifiers: Hypertension type: unspecified Qualified Code(s): I10 - Essential (primary) hypertension Code(s): I10 - Essential (primary) hypertension Status: Acute Assessment and Plan: Continue with Coreg. 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 - 11/10/21: Continue Eliquis dosing as noted above. (13) Schizophrenia: Qualifiers: Schizophrenia type: unspecified Qualified Code(s): F20.9 - Schizophrenia, unspecified Code(s): F20.9 - Schizophrenia, unspecified Status: Acute Assessment and Plan: Continue with risperidone - 11/10/21: Stable and not currently problematic. (14) Constipation: Code(s): K59.00 - Constipation, unspecified Status: Acute Assessment and Plan: Monitor Subjective Date/time seen: 11/13/21 15:45 Continue IV antibiotics Levaquin Will be continued vanc and cefepime were previously had a but I stopped those to deescalate antibiotics respiratory status i
[2021-11-13 16:22] LABS: Glucose Point of Care 161 mg/dl (65-105)
[2021-11-13] MEDS: INSULIN GLARGINE (*BKC) 100 UNITS/ML 30 UNITS SUB-Q (20:49)
[2021-11-13] MEDS: ATORVASTATIN 40 MG TABLET PO (20:50)
[2021-11-13] MEDS: risperiDONE 1 MG TABLET 2 MG PO (20:50)
[2021-11-13 21:00] LABS: Glucose Point of Care 298 mg/dl (65-105)
[2021-11-13] MEDS: PREGABALIN (*CRX) 75 MG CAPSULE 150 MG PO (21:00)
[2021-11-14] VITALS (11 sets, daily range): BP systolic 120–122; BP diastolic 56–65; PULSE 64–87; RESP 12–18; TEMP 36.3–36.4; O2SAT 98–99
[2021-11-14] MEDS: IPRATROPIUM BR 0.02% INH SOLN 0.5 MG/2.5 ML VIAL INHALATION ×3 (02:30→15:11)
[2021-11-14] MEDS: ALBUTEROL SULFATE NEB 2.5 MG/3 ML INH INHALATION ×3 (02:31→15:11)
[2021-11-14 05:40] LABS: Estimated CRCL calculation 23 ml/min; Estimated Glomerular Filt Rate 32
[2021-11-14] MEDS: carvediloL 3.125 MG TABLET PO (08:04)
[2021-11-14] MEDS: MULTIVITAMINS THERAPEUTIC TAB (*BKC) 1 TABLET PO (08:04)
[2021-11-14] MEDS: FAMOTIDINE 20 MG TABLET PO (08:04)
[2021-11-14] MEDS: APIXABAN 5 MG TABLET PO (08:04)
[2021-11-14] MEDS: FERROUS SULFATE 324 MG TABLET PO (08:04)
[2021-11-14] MEDS: guaiFENesin 12 HR 600 MG TABCR 1200 MG PO (08:05)
[2021-11-14] MEDS: BENZONATATE 100 MG CAPSULE PO (08:05)
[2021-11-14 08:08] LABS: Glucose Point of Care 193 mg/dl (65-105)
[2021-11-14 11:31] LABS: Glucose Point of Care 234 mg/dl (65-105)
[2021-11-14] MEDS: INSULIN ASPART (*BKC) 100 UNITS/ML SUB-Q ×2 (11:41→16:36)
--- NOTE | 2021-11-14 12:36 | PM.DS ---
DS: Admitting Diagnosis Discharge Date 11/14/2021 Admitting Diagnosis cough shortness of breath DS: Discharge Diagnosis Discharge Diagnosis (1) Acute metabolic encephalopathy: Code(s): G93.41 - Metabolic encephalopathy Status: Acute Assessment and Plan: Improved and resolved (2) Fever: Qualifiers: Fever type: unspecified Qualified Code(s): R50.9 - Fever, unspecified Code(s): R50.9 - Fever, unspecified Status: Acute Assessment and Plan: Monitor (3) HCAP (healthcare-associated pneumonia): Code(s): J18.9 - Pneumonia, unspecified organism Status: Acute Assessment and Plan: Continue IV antibiotics Levaquin Will be continued vanc and cefepime were previously had a but I stopped those to deescalate antibiotics respiratory status improved can likely be discharged within 2 days. 11/13/2021 interval history: patient with a suspected healthcare associated, not treated with Levaquin, is feeling better denies any cough or shortness of breath, repeat chest x-ray in morning, and further recommendation to follow. will continue PT OT. patient will benefit from gentle rehab for strengthening. (4) Venous thrombosis: Code(s): I82.90 - Acute embolism and thrombosis of unspecified vein Status: Acute Assessment and Plan: Continue Eliquis (5) Congestive heart failure: Qualifiers: Heart failure type: diastolic Heart failure chronicity: chronic Qualified Code(s): I50.32 - Chronic diastolic (congestive) heart failure Code(s): I50.9 - Heart failure, unspecified Status: Acute Assessment and Plan: Appears compensated (6) CKD (chronic kidney disease) stage 4, GFR 15-29 ml/min: Code(s): N18.4 - Chronic kidney disease, stage 4 (severe) Status: Acute Assessment and Plan: At baseline of creatinine of 2.1 (7) Anemia: Qualifiers: Anemia type: unspecified type Qualified Code(s): D64.9 - Anemia, unspecified Code(s): D64.9 - Anemia, unspecified Status: Acute Assessment and Plan: Monitor, chronic (8) Hypertension: Qualifiers: Hypertension type: unspecified Qualified Code(s): I10 - Essential (primary) hypertension Code(s): I10 - Essential (primary) hypertension Status: Acute Assessment and Plan: Continue with Coreg. 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 - 11/10/21: Continue Eliquis dosing as noted above. (13) Schizophrenia: Qualifiers: Schizophrenia type: unspecified Qualified Code(s): F20.9 - Schizophrenia, unspecified Code(s): F20.9 - Schizophrenia, unspecified Status: Acute Assessment and Plan: Continue with risperidone - 11/10/21: Stable and not currently problematic. (14) Constipation: Code(s): K59.00 - Constipation, unspecified Status: Acute Assessment and Plan: Monitor DS: Summary Hospital Course Reason for hospitalization: this is a 71-year-old female patient who c
[2021-11-14 16:30] LABS: Glucose Point of Care 226 mg/dl (65-105)
--- NOTE | 2022-01-08 09:02 | PC.NURSE ---
Patient earrings found in safe with a note that the patients' daughter was called twice about picking up patients' earrings. Dates on note are 11/15/2021 and 11/21/2021. Call made to patients' daughter Honey, no answer. Will send patient earrings to lost and found.
--- NOTE | 2022-01-08 09:16 | PC.NURSE ---
Patients' daughter called back about patients' earrings, she will try and pick them up today. I informed the daughter that I would keep them on the floor until tomorrow and after today they will be sent to the lost and found.
== END 2021-11-14 18:47 | disposition home health service (06) | DRG 193 ==
LOC: ANHED 14:22 → ANH2MED 14:49
PROVIDERS: Emergency Medicine; Family Medicine; Nurse Practitioner; Physician Assistant; Student in an Organized Health Care Education/Training Program; Admitting Provider Family Medicine; Emergency Provider Nurse Practitioner Family; PCP Hospitalist; Visit Provider Nurse Practitioner Adult Health
DX: J18.9 Pneumonia, unspecified organism (principal); G93.41 Metabolic encephalopathy; I13.0 Hypertensive heart and chronic kidney disease with heart failure and stage 1 through stage 4 chronic kidney disease, or unspecified chronic kidney disease; I50.32 Chronic diastolic (congestive) heart failure; N18.4 Chronic kidney disease, stage 4 (severe); I82.442 Acute embolism and thrombosis of left tibial vein; Z20.822 Contact with and (suspected) exposure to COVID-19; E11.22 Type 2 diabetes mellitus with diabetic chronic kidney disease; E11.42 Type 2 diabetes mellitus with diabetic polyneuropathy; D64.9 Anemia, unspecified; F20.9 Schizophrenia, unspecified; K59.00 Constipation, unspecified; F03.90 Unspecified dementia, unspecified severity, without behavioral disturbance, psychotic disturbance, mood disturbance, and anxiety; Z86.16 Personal history of COVID-19; Z89.411 Acquired absence of right great toe
CPT/HCPCS: 36415; 36600; 70450; 71045; 71046; 76705; 78580; 80048; 80053; 80074; 80202; 81001; 82274; 82565; 82728; 82805; 82948; 83605; 83735; 83880; 84443; 85025; 86769; 87040; 87070; 87086; 87205; 87502; 87804; 93005; 93970; 94640; 94762; 96365; 96366; 96367; 96375; 96376; 97110; 97161; 97165; 97530; 97535; 99285; A9270; A9540; C9803; G0378; J0692; J1815; J1940; J1956; J3370; J7040; U0003; U0005

== ENCOUNTER 2022-03-01 16:16 | Emergency (ER) | payer MEDICARE, MEDICAID, SELFPAY ==
[2022-03-01] VITALS (12 sets, daily range): BP systolic 150–196; BP diastolic 61–71; PULSE 71–78; RESP 11–19; TEMP 37.2; O2SAT 96–100
--- NOTE | ~2022-03-01 | XR_ITS ---
EXAMINATION: XR chest 1V portable Exam Date/Time: 03/01/2022 17:42 CDT HISTORY: weakness, shaking x 1 week hx ckd,chf,covid Jun,diabetic Comparison: 11/14/2021. RESULT: Lines, tubes, and devices: None. Lungs and pleura: Clear. Cardiomediastinal silhouette: Stable. Other: No acute osseous or upper abdominal finding. IMPRESSION: No acute cardiopulmonary process. Reviewed, dictated and finalized at location K.
--- NOTE | 2022-03-01 16:44 | ECG_ITS ---
Measurements Intervals [place] Rate: 77 P: 71 PA: 168 QRS: 8 QRSD: 74 T: 40 QT: 387 QTc: 439 Interpretive Statements SINUS RHYTHM BASELINE ARTIFACT- I, II, III, AVR, AVL, AVF, V1-V3 NORMAL ECG COMPARED TO ECG 11/04/2021 09:52:03 NO SIGNIFICANT CHANGES Electronically Signed On 03-01-2022 21:35:58 CDT by Melquiades Marte D.O.
--- NOTE | 2022-03-01 16:44 | ED.GENADULT ---
HPI - General Adult General Chief complaint: Weakness Stated complaint: weakness Time Seen by Provider: 03/01/22 16:43 Source: family Mode of arrival: ambulatory History of Present Illness HPI narrative: Patient is 71 years old -[place] female brought to the emergency room by her daughter because of not feeling well and weakness for the last 7 days. She denies any fever, chills, nausea, vomiting or chest pain, shortness of breath, back pain, headache, diarrhea, constipation, urinary symptoms. Related Data Home Medications Medication Instructions Recorded Confirmed atorvastatin 40 mg tablet 40 mg PO HS 06/23/21 11/04/21 pregabalin 150 mg capsule 150 mg PO HS 06/23/21 11/04/21 acetaminophen 325 mg tablet 650 mg PO Q6H PRN Pain 09/19/21 11/04/21 dulaglutide 0.75 mg/0.5 mL 0.75 mg subcut WEEKLY 09/19/21 11/04/21 subcutaneous pen injector (Trulicity) famotidine 20 mg tablet (Pepcid) 20 mg PO DAILY 09/19/21 11/04/21 ferrous sulfate 325 mg (65 mg 325 mg PO DAILY 09/19/21 11/04/21 iron) tablet insulin glargine 100 unit/mL (3 25 unit subcut HS 09/19/21 11/04/21 mL) subcutaneous pen (Lantus Solostar U-100 Insulin) insulin lispro 100 unit/mL 1 - 4 sliding scale dose subcut 09/19/21 11/04/21 subcutaneous pen USEASDIRECTD insulin lispro 100 unit/mL 8 unit subcut TIDWM 09/19/21 11/04/21 subcutaneous pen lidocaine 5 % topical patch 2 patch topical DAILY PRN Back Pain 09/19/21 11/04/21 multivitamin 1 tablet PO DAILY 09/19/21 11/04/21 polyethylene glycol 3350 17 gram 17 g PO DAILY PRN Constipation 09/19/21 11/04/21 oral powder packet (Miralax) albuterol sulfate 90 mcg/actuation 2 inh inhalation Q4H PRN Shortness 11/04/21 11/04/21 aerosol inhaler Of Breath Or Wheezing furosemide 40 mg tablet 40 mg PO BID 11/04/21 11/04/21 Allergies Allergy/AdvReac Type Severity Reaction Status Date / Time No Known Allergies Allergy Verified 11/04/21 10:32 Review of Systems Review of Systems: All systems reviewed & are unremarkable except as noted in HPI and below PMFSH Past Medical History Medical History Anemia CKD (chronic kidney disease) Congestive heart failure 1. Complete two-dimensional, color flow and Doppler transthoracic echocardiogram is performed. 2. Left ventricular systolic function is normal, estimated at 60-65%. 3. There is mildly increased left ventricular wall thickness. 4. The left ventricular diastolic function is grade I diastolic dysfunction. 5. There is mild aortic valve regurgitation. 6. There is mild aortic valve sclerosis. 7. There is trace mitral valve regurgitation. 8. There is trace tricuspid valve regurgitation. 9. No pulmonary hypertension, estimated pulmonary arterial systolic pressure is 35 mmHg. echo from 08/01/2021 COVID Jun 2021 Dementia Diabetes Diabetic neuropathy Hyperkalemia Schizophrenia Sepsis Surgical History Surgical History Hx of section Right great toe amputee Family History Family History Mother Acute myocardial infarction Diabetes mellitus Father Heart attack Sibling Acute myocardial infarction Diabetes mellitus Social History Social History Social History: Lives with daughter and grandson. she is divorcedLifelong nonsmoker. No alcohol or drug use. . No POA but Dafne Gayle is the child that makes the patient's medical decision. Full code Smoking status: Never smoker Alcohol intake: never Substance use: never Substance use type: does not use Gender identity (if verbalized by the patient): Female Sexual Orientation (if Verbalized by the Patient): Straight or Heterosexual Spiritual care concerns: No Exam Narrative: General appearance: Well-developed, well-nourished Skin: Normal color Head: Normocephal
[2022-03-01] MEDS: SODIUM CHLORIDE 0.9% IV 1,000 ML 999 ML IV CONT (17:08)
[2022-03-01 17:33] LABS: Basophils Percent Auto 0.3 % (0.2-1.2); Eosinophils Absolute Auto 0.2 K/mm3 (0-0.3); Eosinophils Percent Auto 2.3 % (0-4.4); Hematocrit 28.7 % (37.0-47.0); Hemoglobin 8.8 g/dL (12.0-15.0); Immature Granulocyte Absolute 0.02 K/mm3 (0.00-0.031); Immature Granulocyte Percent A 0.2 % (0-0.5); Lymphocytes Absolute Auto 2.69 K/mm3 (0.9-3.2); Lymphocytes Percent Auto 29.4 % (18.3-44.2); Mean Corpuscular HGB Conc 30.7 g/dl (32-36); Mean Corpuscular Hemoglobin 29.3 pg (26-34); Mean Corpuscular Volume 95.7 fl (80-100); Mean Platelet Volume 10.9 fl (7.4-10.4); Monocytes Absolute Auto 0.8 K/mm3 (0.1-0.6); Monocytes Percent Auto 8.3 % (2.6-8.5); Neutrophils Absolute Auto 5.4 K/mm3 (1.3-6.7); Neutrophils Percent Auto 59.5 % (45.5-73.1); Platelet Count Result 275 k/mm3 (150-375); Red Cell Distribution Width 16.4 % (11.5-14.5); White Blood Count 9.1 K/mm3 (4.5-10.0)
[2022-03-01 17:42] LABS: Alanine Aminotransferase 18 U/L (6-35); Alkaline Phosphatase 146 U/L (38-126); Anion Gap 14 mmol/L (8-16); Aspartate Amino Transferase 21 U/L (14-36); Bilirubin,Total 0.2 mg/dL (0.2-1.3); Blood Urea Nitrogen 41 mg/dL (7-17); Calcium 9.2 mg/dL (8.4-10.2); Carbon Dioxide 28 mmol/L (22-30); Chloride 105 mmol/L (98-107); Estimated CRCL calculation 23 ml/min; Estimated Glomerular Filt Rate 32; Glucose 141 mg/dL (65-110); Sodium 147 mmol/L (137-145)
[2022-03-01 17:54] LABS: Troponin I < 0.012 ng/mL (0.000-0.034)
[2022-03-01 18:53] LABS: Appearance Urine Clear (Clear); Bilirubin Urine Negative (Negative); Color Urine Yellow (Yellow); Glucose Urine UA Trace mg/dL (Negative); Ketones Urine Negative (Negative); Leukocyte Esterase Ur Negative LEU/UL (Negative); Nitrate Urine Negative (Negative); Protein Urine 3+ mg/dL (Negative); Urobilinogen Urine 0.2 mg/dL (<2.0)
[2022-03-01 18:57] LABS: Bacteria Urine Trace /hpf; Mucus Urine Rare /lpf; RBC Urine 0-2 /hpf (0-2); WBC Urine 0-3 /hpf
[2022-03-01 19:03] LABS: Add Urine Microscopic? YES; Blood Urine Trace-Intact (Negative)
== END 2022-03-01 19:50 | disposition home or self-care (01) ==
PROVIDERS: Emergency Provider Emergency Medicine; PCP Hospitalist
DX: R53.1 Weakness (principal); E11.22 Type 2 diabetes mellitus with diabetic chronic kidney disease; N18.9 Chronic kidney disease, unspecified; I50.9 Heart failure, unspecified; F03.90 Unspecified dementia, unspecified severity, without behavioral disturbance, psychotic disturbance, mood disturbance, and anxiety; E11.40 Type 2 diabetes mellitus with diabetic neuropathy, unspecified; Z86.16 Personal history of COVID-19; Z89.411 Acquired absence of right great toe; Z79.4 Long term (current) use of insulin; Z79.899 Other long term (current) drug therapy; Z79.01 Long term (current) use of anticoagulants
CPT/HCPCS: 36415; 51701; 71045; 80053; 81001; 84443; 84484; 85025; 93005; 96360; 99284; J7030

== ENCOUNTER 2022-04-19 12:24 | Inpatient (IN) | payer MEDICARE, MEDICAID, SELFPAY ==
[2022-04-19] VITALS (13 sets, daily range): BP systolic 137–169; BP diastolic 50–64; PULSE 64–95; RESP 12–20; TEMP 36.1–37.2; O2SAT 97–100
--- NOTE | ~2022-04-19 | CT_ITS ---
EXAMINATION: CT brain wo con DATE: 04/19/2022 14:19 INDICATION: Transient alteration of awareness TECHNIQUE: Computed tomography (CT) of the head was performed without intravenous contrast. The dose- length product was 529.67 mGy-cm. Automated exposure control and iterative reconstruction technique w ere employed. COMPARISON: CT dated 11/06/2021 FINDINGS: Mild generalized atrophy, commensurate with age. There are scattered mild periventricular a nd subcortical white matter changes, most likely related to small vessel ischemic disease (microangio asif). No ventriculomegaly or midline shift. Basilar cisterns are patent. Paranasal sinuses and mast oids are pneumatized. There is hyperostosis frontalis interna. No depressed skull fractures. No acute intracranial hemorrhage, infarction, mass or mass effect. IMPRESSION: 1. No acute intracranial abnormality. Reviewed, dictated and finalized at location A.
--- NOTE | ~2022-04-19 | XR_ITS ---
EXAMINATION: XR chest 2V 04/19/2022 13:15 INDICATION: Weakness and shortness of breath. Stage III kidney disease. PROCEDURE: 2 view chest COMPARISON: Comparison to multiple prior studies sequentially, with oldest reviewed study dated 11/04. FINDINGS: The lungs are clear. The cardiomediastinal silhouette is within normal limits. There are no pleural effusions. There is no pneumothorax suspected. IMPRESSION: 1: NO ACUTE CARDIOPULMONARY DISEASE. Reviewed, dictated and finalized at location A.
--- NOTE | 2022-04-19 12:35 | ECG_ITS ---
Measurements Intervals [place] Rate: 82 P: 68 NM: 169 QRS: 5 QRSD: 86 T: 21 QT: 392 QTc: 460 Interpretive Statements SINUS RHYTHM COMPARED TO ECG 03/01/2022 16:57:35 NO SIGNIFICANT CHANGES Electronically Signed On 04-19-2022 13:11:20 CDT by Wyatt Duvall M.D.
[2022-04-19 13:13] LABS: Basophils Percent Auto 0.2 % (0.2-1.2); Eosinophils Absolute Auto 0.2 K/mm3 (0-0.3); Eosinophils Percent Auto 1.8 % (0-4.4); Hematocrit 26.5 % (37.0-47.0); Hemoglobin 8.4 g/dL (12.0-15.0); Immature Granulocyte Absolute 0.03 K/mm3 (0.00-0.031); Immature Granulocyte Percent A 0.3 % (0-0.5); Lymphocytes Absolute Auto 2.28 K/mm3 (0.9-3.2); Lymphocytes Percent Auto 25.7 % (18.3-44.2); Mean Corpuscular HGB Conc 31.7 g/dl (32-36); Mean Corpuscular Volume 94.6 fl (80-100); Monocytes Absolute Auto 0.6 K/mm3 (0.1-0.6); Monocytes Percent Auto 6.2 % (2.6-8.5); Neutrophils Absolute Auto 5.8 K/mm3 (1.3-6.7); Neutrophils Percent Auto 65.8 % (45.5-73.1); Platelet Count Result 311 k/mm3 (150-375); Red Cell Distribution Width 15.9 % (11.5-14.5); White Blood Count 8.9 K/mm3 (4.5-10.0)
[2022-04-19 13:23] LABS: Alanine Aminotransferase 25 U/L (6-35); Albumin Level 3.6 g/dL (3.5-5.1); Alkaline Phosphatase 132 U/L (38-126); Anion Gap 12 mmol/L (8-16); Aspartate Amino Transferase 34 U/L (14-36); Bilirubin,Total 0.5 mg/dL (0.2-1.3); Blood Urea Nitrogen 55 mg/dL (7-17); Calcium 8.8 mg/dL (8.4-10.2); Carbon Dioxide 21 mmol/L (22-30); Chloride 107 mmol/L (98-107); Estimated Glomerular Filt Rate 28; Glucose 269 mg/dL (65-110); Potassium 4.2 mmol/L (3.4-5.0); Sodium 140 mmol/L (137-145)
--- NOTE | 2022-04-19 13:32 | ED.GENADULT ---
HPI - General Adult General Chief complaint: Weakness Stated complaint: weakness, incontinent Time Seen by Provider: 04/19/22 12:46 History of Present Illness HPI narrative: This is a 71-year-old female with a history of dementia presenting ED with chief complaint of generalized weakness. Patient herself has dementia and is AO x 1-2 which is her baseline. Her daughter says that she has been incontinent and had several episodes of diarrhea. The patient is denying other complaints. Related Data Home Medications Medication Instructions Recorded Confirmed atorvastatin 40 mg tablet 40 mg PO HS 06/23/21 11/04/21 pregabalin 150 mg capsule 150 mg PO HS 06/23/21 11/04/21 acetaminophen 325 mg tablet 650 mg PO Q6H PRN Pain 09/19/21 11/04/21 dulaglutide 0.75 mg/0.5 mL 0.75 mg subcut WEEKLY 09/19/21 11/04/21 subcutaneous pen injector (Trulicity) famotidine 20 mg tablet (Pepcid) 20 mg PO DAILY 09/19/21 11/04/21 ferrous sulfate 325 mg (65 mg 325 mg PO DAILY 09/19/21 11/04/21 iron) tablet insulin glargine 100 unit/mL (3 25 unit subcut HS 09/19/21 11/04/21 mL) subcutaneous pen (Lantus Solostar U-100 Insulin) insulin lispro 100 unit/mL 1 - 4 sliding scale dose subcut 09/19/21 11/04/21 subcutaneous pen USEASDIRECTD insulin lispro 100 unit/mL 8 unit subcut TIDWM 09/19/21 11/04/21 subcutaneous pen lidocaine 5 % topical patch 2 patch topical DAILY PRN Back Pain 09/19/21 11/04/21 multivitamin 1 tablet PO DAILY 09/19/21 11/04/21 polyethylene glycol 3350 17 gram 17 g PO DAILY PRN Constipation 09/19/21 11/04/21 oral powder packet (Miralax) albuterol sulfate 90 mcg/actuation 2 inh inhalation Q4H PRN Shortness 11/04/21 11/04/21 aerosol inhaler Of Breath Or Wheezing furosemide 40 mg tablet 40 mg PO BID 11/04/21 11/04/21 Allergies Allergy/AdvReac Type Severity Reaction Status Date / Time No Known Allergies Allergy Verified 11/04/21 10:32 Review of Systems Review of Systems: CONSTITUTIONAL: Denies night sweats. EYES: No eye pain ENT: Denies rhinorrhea CARDIOVASCULAR: Denies palpitations RESPIRATORY: Denies hemoptysis GASTROINTESTINAL: Denies hematemesis GENITOURINARY: Denies hematuria. SKIN: Denies rash MUSCULOSKELETAL: Denies myalgia. NEUROLOGIC: Denies weakness. PSYCHIATRIC: Denies delusions PMFSH Past Medical History Medical History Anemia CKD (chronic kidney disease) Congestive heart failure 1. Complete two-dimensional, color flow and Doppler transthoracic echocardiogram is performed. 2. Left ventricular systolic function is normal, estimated at 60-65%. 3. There is mildly increased left ventricular wall thickness. 4. The left ventricular diastolic function is grade I diastolic dysfunction. 5. There is mild aortic valve regurgitation. 6. There is mild aortic valve sclerosis. 7. There is trace mitral valve regurgitation. 8. There is trace tricuspid valve regurgitation. 9. No pulmonary hypertension, estimated pulmonary arterial systolic pressure is 35 mmHg. echo from 08/01/2021 COVID Jun 2021 Dementia Diabetes Diabetic neuropathy Hyperkalemia Schizophrenia Sepsis Surgical History Surgical History Hx of section Right great toe amputee Family History Family History Mother Acute myocardial infarction Diabetes mellitus Father Heart attack Sibling Acute myocardial infarction Diabetes mellitus Social History Social History Social History: Lives with daughter and grandson. she is divorcedLifelong nonsmoker. No alcohol or drug use. . No POA but Dafne Gayle is the child that makes the patient's medical decision. Full code Smoking status: Never smoker Alcohol intake: never Substance use: never Substance use type: does not use Gender identity (if verbali
[2022-04-19] MEDS: SODIUM CHLORIDE 0.9% IV 1,000 ML 999 ML IV CONT (13:54)
[2022-04-19 14:28] LABS: Influenza A QL RT-PCR Negative (Negative); Influenza B QL RT-PCR Negative (Negative); SARS-CoV-2 RNA PCR Negative
[2022-04-19 14:54] LABS: Appearance Urine Cloudy (Clear); Bilirubin Urine Negative (Negative); Blood Urine 1+ (Negative); Color Urine Yellow (Yellow); Glucose Urine UA Trace mg/dL (Negative); Ketones Urine Negative (Negative); Leukocyte Esterase Ur 1+ LEU/UL (Negative); Nitrate Urine Negative (Negative); Protein Urine 3+ mg/dL (Negative); Specific Grav Ur 1.015 (1.001-1.035); Urobilinogen Urine 0.2 mg/dL (<2.0); pH Urine 5.5 (5.0-9.0)
[2022-04-19 15:21] LABS: Bacteria Urine Trace /hpf; Mucus Urine Rare /lpf; RBC Urine 0-2 /hpf (0-2); Squamous Epithelial Cell Urine Rare /hpf (Few); WBC Clumps Urine Present /HPF; WBC Urine >75 /hpf
[2022-04-19 15:29] LABS: Add Urine Microscopic? YES
--- NOTE | 2022-04-19 16:45 | PM.IMHP ---
H&P: HPI History of Present Illness Date/Time: 04/19/22 16:45 Chief Complaint: Weakness and urine incontinence. Narrative: This is a pleasant 71-year-old female with dementia, insulin-dependent diabetes, chronic kidney disease, chronic anemia, DVT on anticoagulation, hyperlipidemia, hypertension, and heart failure with preserved ejection fraction who presented to the emergency department for evaluation of weakness. She is a fair historian although her daughter Areli provides additional information, with the patient's permission. The patient seems to get along okay at home with a walker and occasional cane however for the past 1 week she has been more weak and in fact daughter reports that she slid out of bed a couple of times though luckily she did not injure herself. In addition to the generalized weakness, she has had episodes of urinary incontinence which is unusual for her and over the past 24 hours she has had several episodes of loose stools. The patient has also noticed increasing swelling in her hands and feet and she feels short of breath when lying flat in bed. Labs obtained on arrival to the ER were pretty consistent when compared to previous lab draws. Brain CT and chest x-ray did not show any acute findings. Her urine was positive for leukocyte esterase, greater than 75 WBCs, WBC clumps, and trace bacteria and she is being admitted in this setting for IV antibiotics for presumed urinary tract infection and PT/OT consultation. At the time my evaluation she has no specific complaints and she specifically denies fever, chills, sweats, headache, auditory visual changes, focal weakness, paresthesias, syncope, near syncope, chest pain, pleuritic pain, palpitations, sensations of racing heart, nausea, vomiting, and calf pain. Review of Systems Review of Systems: Twelve systems were reviewed. She has recently developed tremors of her hands and she has an upcoming appointment with her neurologist in [place]. She never had these before and it does not sound as though there is a history of essential tremors. No history of Parkinson's. She was on risperidone for her schizophrenia for many years but that was changed to Haldol due to weight gain sometime early this spring. It sounds as though she may have had tardive dyskinesia from the Haldol and she was put back on risperidone though it seems like the tremors started around that time. No fever, chills, or sweats. No recent cold or flu symptoms. No sick contacts. Appetite has been good. No dark stools or gross blood in stools. No hematuria. She denies overt dysuria. She has chronic neuropathy which is unchanged. Her glucose typically runs between 100 and 200 though she has had a few readings up to 250 over the last several days. Except as documented, all other systems were reviewed and are negative. [facility] Past Medical History Medical History (Updated 04/19/22 @ 22:13 by Cassandra Rodriguez PA-C) Anemia Chronic kidney disease, stage 4 (severe) Creatinine ranges from 1.9 to 2.20. COVID (06/2021) Dementia Diabetic neuropathy Heart failure with preserved ejection fraction Hyperkalemia Insulin dependent diabetes mellitus Schizophrenia Venous thrombosis Surgical History Surgical History (Updated 04/19/22 @ 22:04 by Cassandra Rodriguez PA-C) History of cataract extraction with lens replacement History of section Right great toe amputee Family History Family History Mother Diabetes mellitus Acute myocardial infarction Father Heart attack Cancer Sibling Diabetes mellitus Acute myocardial infarction Social History Social History (Updated 04/19/22 @ 22:06 by Cassandra Rodriguez PA-C) Social History: The patient lives with her daughter and grand son in [place]. Lifelong nonsmoker. No alcohol or illicit substance abuse. She designates her daughter, Candelaria Gayle, as her surrogate decision maker. Code status: Mariia
--- NOTE | 2022-04-19 18:59 | PC.NURSE ---
This patient, Barbara Chakraborty, was admitted to [facility] Room 332-01. Patient/family oriented to hospital policies and general routines including ID bracelet, bed and alarms, visiting hours, pain management, procedures, bathroom and other care routines, personal items, smoking policy, room service/diet, and visiting hours. Information on how to activate the Rapid Response Team has been discussed. Patient/Family are encouraged to report perceived risks to care and to ask questions if they do not understand what they are told or what they should do.
[2022-04-19] MEDS: FUROSEMIDE INJ 40 MG/4 ML VIAL 20 MG IV PUSH (23:26)
[2022-04-19] MEDS: PREGABALIN (*CRX) 75 MG CAPSULE 150 MG PO (23:26)
[2022-04-19] MEDS: INSULIN GLARGINE (*BKC) 100 UNITS/ML 34 UNITS SUB-Q (23:26)
[2022-04-19] MEDS: carvediloL 3.125 MG TABLET PO (23:27)
[2022-04-19] MEDS: APIXABAN 5 MG TABLET PO (23:27)
[2022-04-19] MEDS: risperiDONE 1 MG TABLET 2 MG PO (23:27)
[2022-04-19 23:39] LABS: Glucose Point of Care 229 mg/dl (65-105)
[2022-04-20 06:00] VITALS: BP 134/57; PULSE 74; RESP 12; TEMP 36.8; O2SAT 98
[2022-04-20 06:08] LABS: Hematocrit 25.4 % (37.0-47.0); Hemoglobin 7.9 g/dL (12.0-15.0); Mean Corpuscular HGB Conc 31.1 g/dl (32-36); Mean Corpuscular Hemoglobin 29.6 pg (26-34); Mean Corpuscular Volume 95.1 fl (80-100); Mean Platelet Volume 10.2 fl (7.4-10.4); Platelet Count Result 273 k/mm3 (150-375); Red Blood Count 2.67 M/mm3 (4.2-5.4); Red Cell Distribution Width 16.1 % (11.5-14.5); White Blood Count 7.4 K/mm3 (4.5-10.0)
[2022-04-20 06:24] LABS: Anion Gap 14 mmol/L (8-16); Blood Urea Nitrogen 46 mg/dL (7-17); Calcium 8.6 mg/dL (8.4-10.2); Carbon Dioxide 23 mmol/L (22-30); Chloride 109 mmol/L (98-107); Estimated Glomerular Filt Rate 28; Glucose 177 mg/dL (65-110); Magnesium 2.1 mg/dL (1.6-2.3); Potassium 3.6 mmol/L (3.4-5.0); Sodium 146 mmol/L (137-145)
[2022-04-20 08:00] VITALS: PULSE 74; RESP 12; O2SAT 98
[2022-04-20 08:06] LABS: Glucose Point of Care 168 mg/dl (65-105)
[2022-04-20 09:15] LABS: Iron 58 ug/dL (37-170)
[2022-04-20 09:24] LABS: Percent Iron Saturation 24 % (20-50)
[2022-04-20 10:10] LABS: Hemoglobin A1C 9.4 % (<5.7)
[2022-04-20] MEDS: MULTIVITAMINS THERAPEUTIC TAB (*BKC) 1 TABLET PO (10:21)
[2022-04-20] MEDS: FERROUS SULFATE 324 MG TABLET PO (10:21)
[2022-04-20] MEDS: FUROSEMIDE 20 MG TABLET PO ×2 (10:21→18:00)
[2022-04-20] MEDS: FAMOTIDINE 20 MG TABLET PO (10:22)
[2022-04-20] MEDS: carvediloL 3.125 MG TABLET PO ×2 (10:22→20:28)
[2022-04-20] MEDS: APIXABAN 5 MG TABLET PO ×2 (10:22→20:21)
[2022-04-20 10:23] LABS: Folic Acid > 20.0 ng/mL (2.76->20)
--- NOTE | 2022-04-20 11:53 | PM.IMPN ---
Progress Note: A&P Assessment and Plan (1) Weakness: Code(s): R53.1 - Weakness Status: Acute Assessment and Plan: Patient complains of generalized weakness for 1 week May be related to acute UTI TSH, B12, folate within normal limits Appreciate PT/OT evals Implement fall precautions (2) Urinary tract infection: Code(s): N39.0 - Urinary tract infection, site not specified Status: Acute Assessment and Plan: Urinalysis abnormal on presentation and patient presented with complaints of urinary incontinence for 1 week Continue IV ceftriaxone Urine culture is pending (3) Heart failure with preserved ejection fraction: Code(s): I50.30 - Unspecified diastolic (congestive) heart failure Status: Chronic Assessment and Plan: Patient appears euvolemic on exam. Received 1 time dose of IV furosemide yesterday after receiving 1 L of IV fluids in the ED Continue home Lasix 20 mg b.i.d. Monitor volume status Heart healthy diet (4) Insulin dependent diabetes mellitus: Status: Chronic Assessment and Plan: A1c is 9.4. Blood sugars elevated above target today ranging 170-250 Continue Accu-Cheks moderate dose sliding scale insulin, and hypoglycemic protocol Continue Lantus 34 units q.HS Continue NovoLog 12 units scheduled with meals Monitor glucose trends and adjust insulin regimen as needed (5) Chronic kidney disease, stage 4 (severe): Code(s): N18.4 - Chronic kidney disease, stage 4 (severe) Status: Chronic Assessment and Plan: Renal function appears consistent with baseline Continue to monitor BMP (6) Tremor of both hands: Code(s): R25.1 - Tremor, unspecified Status: Acute Assessment and Plan: Ongoing issue for several months Has outpatient evaluation with Neurology scheduled (7) Dementia: Code(s): F03.90 - Unspecified dementia, unspecified severity, without behavioral disturbance, psychotic disturbance, mood disturbance, and anxiety Status: Chronic Assessment and Plan: Seems to be at baseline Continue to monitor mental status (8) Anemia: Code(s): D64.9 - Anemia, unspecified Status: Chronic Assessment and Plan: Hemoglobin 7.9 today. Appears relatively consistent with baseline Iron panel reviewed, iron stores are adequate B12 and folate within normal limits Continue oral iron supplement Monitor H&H Subjective Date/time seen: 04/20/22 11:53 Interval history: Date of service: 04/20/2022 Barbara Chakraborty is a 71-year-old female with a history of anemia, CKD stage 4, dementia, HFpEF, insulin-dependent diabetes mellitus, and schizophrenia who is seen in follow-up for UTI and weakness. The patient is not a great historian due to dementia. She states that she has been ?feeling bad.? She states that she was having issues with diarrhea but today she had a formed bowel movement. She denies abdominal pain. Straight shortness breath, cough, chest pain. She states she has been weak and unsteady. She has been using her walker to get around and today she got up to the bedside chair but states this was difficult for her. She felt a little bit dizzy when she stood up. She denies any bleeding including blood in her stools or hematuria. She denies dysuria. Additionally, denies flank pain or back pain. She ate a good breakfast today. Review of Systems Review of Systems: All systems reviewed & are unremarkable except as noted in HPI and below Exam Narrative: General: Well-nourished, well-appearing 71-year-old female, sitting in a chair by the bedside feeding herself breakfast, comfortable, NARD Neuro: awake, alert and oriented x4, speech clear, no focal neuro deficits noted HEENMT: normocephalic, atraumatic, EOMI, sclerae anicteric Respiratory: clear to auscultation bilaterally, nonlabored breathing Cardio: regular rate, regular rhythm with S1-S2
[2022-04-20 11:54] LABS: Glucose Point of Care 254 mg/dl (65-105)
[2022-04-20] MEDS: INSULIN ASPART (*BKC) 100 UNITS/ML SUB-Q ×2 (12:30→18:01)
[2022-04-20] MEDS: INSULIN ASPART (*BKC) 100 UNITS/ML 12 UNITS SUB-Q ×2 (12:31→18:00)
[2022-04-20 14:00] VITALS: BP 156/66; PULSE 76; RESP 18; TEMP 35.6; O2SAT 99
[2022-04-20 16:24] LABS: Glucose Point of Care 328 mg/dl (65-105)
--- NOTE | 2022-04-20 19:47 | PHAR ---
Trulicity Dulaglutide - 0.75 MG/0.5 ML Solution Clear Rosalina Kathy
[2022-04-20] MEDS: risperiDONE 1 MG TABLET 2 MG PO (20:20)
[2022-04-20] MEDS: ATORVASTATIN 40 MG TABLET PO (20:21)
[2022-04-20] MEDS: PREGABALIN (*CRX) 75 MG CAPSULE 150 MG PO (20:23)
[2022-04-20 20:28] VITALS: PULSE 76
[2022-04-20] MEDS: INSULIN GLARGINE (*BKC) 100 UNITS/ML 34 UNITS SUB-Q (20:28)
[2022-04-20 21:15] LABS: Glucose Point of Care 184 mg/dl (65-105)
[2022-04-20 22:00] VITALS: BP 160/57; PULSE 71; RESP 18; TEMP 36.4; O2SAT 98
[2022-04-20 22:53] VITALS: O2SAT 99
[2022-04-21 05:41] VITALS: BP 106/54; PULSE 68; RESP 18; TEMP 36.2; O2SAT 98
[2022-04-21 07:03] LABS: Anion Gap 11 mmol/L (8-16); Blood Urea Nitrogen 49 mg/dL (7-17); Calcium 8.5 mg/dL (8.4-10.2); Carbon Dioxide 22 mmol/L (22-30); Chloride 111 mmol/L (98-107); Estimated Glomerular Filt Rate 24; Glucose 132 mg/dL (65-110); Potassium 3.8 mmol/L (3.4-5.0); Sodium 144 mmol/L (137-145)
[2022-04-21 07:09] LABS: Hematocrit 25.3 % (37.0-47.0); Hemoglobin 7.7 g/dL (12.0-15.0); Mean Corpuscular HGB Conc 30.4 g/dl (32-36); Mean Corpuscular Hemoglobin 29.6 pg (26-34); Mean Corpuscular Volume 97.3 fl (80-100); Mean Platelet Volume 11.1 fl (7.4-10.4); Platelet Count Result 275 k/mm3 (150-375); Red Cell Distribution Width 16.1 % (11.5-14.5); White Blood Count 7.7 K/mm3 (4.5-10.0)
[2022-04-21 07:54] LABS: Glucose Point of Care 143 mg/dl (65-105)
[2022-04-21 09:56] VITALS: PULSE 68
[2022-04-21] MEDS: carvediloL 3.125 MG TABLET PO ×2 (09:56→21:31)
[2022-04-21] MEDS: FERROUS SULFATE 324 MG TABLET PO (09:57)
[2022-04-21] MEDS: APIXABAN 5 MG TABLET PO ×2 (09:58→21:28)
[2022-04-21] MEDS: FAMOTIDINE 20 MG TABLET PO (09:58)
[2022-04-21] MEDS: MULTIVITAMINS THERAPEUTIC TAB (*BKC) 1 TABLET PO (09:58)
[2022-04-21] MEDS: FUROSEMIDE 20 MG TABLET PO ×2 (09:58→17:10)
[2022-04-21] MEDS: INSULIN ASPART (*BKC) 100 UNITS/ML 12 UNITS SUB-Q ×3 (10:00→17:09)
[2022-04-21 11:25] LABS: Glucose Point of Care 234 mg/dl (65-105)
[2022-04-21] MEDS: INSULIN ASPART (*BKC) 100 UNITS/ML SUB-Q ×2 (12:50→17:08)
[2022-04-21] MEDS: AMPICILLIN TRIHYDRATE 500 MG CAPSULE PO ×3 (12:51→21:28)
[2022-04-21 14:00] VITALS: BP 177/67; PULSE 71; RESP 20; TEMP 35.9; O2SAT 95
--- NOTE | 2022-04-21 16:00 | P.PNIM_ITS ---
Progress Note: A&P Assessment and Plan (1) Weakness: Code(s): R53.1 - Weakness Status: Acute Assessment and Plan: Patient complains of generalized weakness for 1 week * May be related to acute UTI * TSH, B12, folate within normal limits * Appreciate PT/OT evals * Fall precautions * Patient able to ambulate in the halls today with assistance (2) Urinary tract infection: Code(s): N39.0 - Urinary tract infection, site not specified Status: Acute Assessment and Plan: Urinalysis abnormal on presentation and patient presented with complaints of urinary incontinence for 1 week * Urine culture with growth of Enterococcus * IV ceftriaxone discontinued * Begin p.o. ampicillin (3) Heart failure with preserved ejection fraction: Code(s): I50.30 - Unspecified diastolic (congestive) heart failure Status: Chronic Assessment and Plan: Patient appears euvolemic on exam. * Received 1 time dose of IV furosemide on admission after receiving 1 L of IV fluids in the ED * Continue home Lasix 20 mg b.i.d. * Monitor volume status * Heart healthy diet (4) Insulin dependent diabetes mellitus: Status: Chronic Assessment and Plan: A1c is 9.4. Blood sugars elevated above target today ranging 140-230 * Continue Accu-Cheks moderate dose sliding scale insulin, and hypoglycemic protocol * Continue Lantus 34 units q.HS * Continue NovoLog 12 units scheduled with meals * Monitor glucose trends and adjust insulin regimen as needed (5) Chronic kidney disease, stage 4 (severe): Code(s): N18.4 - Chronic kidney disease, stage 4 (severe) Status: Chronic Assessment and Plan: Renal function appears consistent with baseline * Slight bump in creatinine today at 2.4, may be due to IV lasix. * Continue to monitor BMP closely (6) Tremor of both hands: Code(s): R25.1 - Tremor, unspecified Status: Acute Assessment and Plan: Ongoing issue for several months * Has outpatient evaluation with Neurology scheduled (7) Dementia: Code(s): F03.90 - Unspecified dementia, unspecified severity, without behavioral disturbance, psychotic disturbance, mood disturbance, and anxiety Status: Chronic Assessment and Plan: Seems to be at baseline * Continue to monitor mental status (8) Anemia: Code(s): D64.9 - Anemia, unspecified Status: Chronic Assessment and Plan: Hemoglobin 7.7 today. Appears relatively consistent with baseline * Iron panel reviewed, iron stores are adequate * B12 and folate within normal limits * Continue oral iron supplement * Monitor H&H Subjective Date/time seen: 04/21/22 16:00 Interval history: Date of service: 04/21/2022 Barbara Chakraborty is a 71-year-old female with a history of anemia, CKD stage 4, dementia, HFpEF, insulin-dependent diabetes mellitus, and schizophrenia who is seen in follow-up for UTI and weakness. The patient is a fair historian due to dementia and seems to be slightly forgetful. She is improved today. She states she has been able to walk around the [place]. She denied dizziness or lightheadedness and felt steady on her feet. She does complain of fatigue that has been bothersome to her. She denies shortness of breath, cough, chest pain. No urinary symptoms. Denies nausea, vomiting, fever, or chills. Review of Systems Review of Systems: All systems reviewed & are unremarkable except as noted in HPI and below
--- NOTE | 2022-04-21 16:00 | PM.IMPN ---
Progress Note: A&P Assessment and Plan (1) Weakness: Code(s): R53.1 - Weakness Status: Acute Assessment and Plan: Patient complains of generalized weakness for 1 week May be related to acute UTI TSH, B12, folate within normal limits Appreciate PT/OT evals Fall precautions Patient able to ambulate in the halls today with assistance (2) Urinary tract infection: Code(s): N39.0 - Urinary tract infection, site not specified Status: Acute Assessment and Plan: Urinalysis abnormal on presentation and patient presented with complaints of urinary incontinence for 1 week Urine culture with growth of Enterococcus IV ceftriaxone discontinued Begin p.o. ampicillin (3) Heart failure with preserved ejection fraction: Code(s): I50.30 - Unspecified diastolic (congestive) heart failure Status: Chronic Assessment and Plan: Patient appears euvolemic on exam. Received 1 time dose of IV furosemide on admission after receiving 1 L of IV fluids in the ED Continue home Lasix 20 mg b.i.d. Monitor volume status Heart healthy diet (4) Insulin dependent diabetes mellitus: Status: Chronic Assessment and Plan: A1c is 9.4. Blood sugars elevated above target today ranging 140-230 Continue Accu-Cheks moderate dose sliding scale insulin, and hypoglycemic protocol Continue Lantus 34 units q.HS Continue NovoLog 12 units scheduled with meals Monitor glucose trends and adjust insulin regimen as needed (5) Chronic kidney disease, stage 4 (severe): Code(s): N18.4 - Chronic kidney disease, stage 4 (severe) Status: Chronic Assessment and Plan: Renal function appears consistent with baseline Slight bump in creatinine today at 2.4, may be due to IV lasix. Continue to monitor BMP closely (6) Tremor of both hands: Code(s): R25.1 - Tremor, unspecified Status: Acute Assessment and Plan: Ongoing issue for several months Has outpatient evaluation with Neurology scheduled (7) Dementia: Code(s): F03.90 - Unspecified dementia, unspecified severity, without behavioral disturbance, psychotic disturbance, mood disturbance, and anxiety Status: Chronic Assessment and Plan: Seems to be at baseline Continue to monitor mental status (8) Anemia: Code(s): D64.9 - Anemia, unspecified Status: Chronic Assessment and Plan: Hemoglobin 7.7 today. Appears relatively consistent with baseline Iron panel reviewed, iron stores are adequate B12 and folate within normal limits Continue oral iron supplement Monitor H&H Subjective Date/time seen: 04/21/22 16:00 Interval history: Date of service: 04/21/2022 Barbara Chakraborty is a 71-year-old female with a history of anemia, CKD stage 4, dementia, HFpEF, insulin-dependent diabetes mellitus, and schizophrenia who is seen in follow-up for UTI and weakness. The patient is a fair historian due to dementia and seems to be slightly forgetful. She is improved today. She states she has been able to walk around the [place]. She denied dizziness or lightheadedness and felt steady on her feet. She does complain of fatigue that has been bothersome to her. She denies shortness of breath, cough, chest pain. No urinary symptoms. Denies nausea, vomiting, fever, or chills. Review of Systems Review of Systems: All systems reviewed & are unremarkable except as noted in HPI and below Exam Narrative: General: Well-nourished, well-appearing 71-year-old female, sitting in a chair by the bedside, comfortable, NARD Neuro: awake, alert and oriented x4, speech clear, no focal neuro deficits noted, forgetful HEENMT: normocephalic, atraumatic, EOMI, sclerae anicteric Respiratory: clear to auscultation bilaterally, nonlabored breathing Cardio: regular rate, regular rhythm with S1-S2 Abdomen: nondistended, normoactive bowel sounds, soft, nontender to palpation E
[2022-04-21 16:37] LABS: Glucose Point of Care 241 mg/dl (65-105)
[2022-04-21 20:00] VITALS: PULSE 71; RESP 16; O2SAT 98
[2022-04-21] MEDS: INSULIN GLARGINE (*BKC) 100 UNITS/ML 34 UNITS SUB-Q (21:26)
[2022-04-21] MEDS: risperiDONE 1 MG TABLET 2 MG PO (21:28)
[2022-04-21] MEDS: PREGABALIN (*CRX) 75 MG CAPSULE 150 MG PO (21:28)
[2022-04-21 21:31] VITALS: PULSE 68
[2022-04-21] MEDS: ATORVASTATIN 40 MG TABLET PO (21:31)
[2022-04-21 21:56] LABS: Glucose Point of Care 166 mg/dl (65-105)
[2022-04-21 22:00] VITALS: BP 149/60; PULSE 71; RESP 16; TEMP 36; O2SAT 98
[2022-04-22 05:34] VITALS: BP 108/48; PULSE 67; RESP 18; TEMP 36.1; O2SAT 98
[2022-04-22] MEDS: AMPICILLIN TRIHYDRATE 500 MG CAPSULE PO ×3 (07:39→16:00)
[2022-04-22 08:49] LABS: Glucose Point of Care 131 mg/dl (65-105)
[2022-04-22 09:01] VITALS: PULSE 68
[2022-04-22] MEDS: APIXABAN 5 MG TABLET PO (09:01)
[2022-04-22] MEDS: FAMOTIDINE 20 MG TABLET PO (09:01)
[2022-04-22] MEDS: FERROUS SULFATE 324 MG TABLET PO (09:01)
[2022-04-22] MEDS: MULTIVITAMINS THERAPEUTIC TAB (*BKC) 1 TABLET PO (09:01)
[2022-04-22] MEDS: FUROSEMIDE 20 MG TABLET PO (09:01)
[2022-04-22] MEDS: carvediloL 3.125 MG TABLET PO (09:01)
[2022-04-22] MEDS: INSULIN ASPART (*BKC) 100 UNITS/ML 12 UNITS SUB-Q ×2 (09:02→12:52)
[2022-04-22 09:35] LABS: Hemoglobin 8.6 g/dL (12.0-15.0); Mean Corpuscular HGB Conc 30.7 g/dl (32-36); Mean Corpuscular Hemoglobin 29.5 pg (26-34); Mean Corpuscular Volume 95.9 fl (80-100); Mean Platelet Volume 10.6 fl (7.4-10.4); Platelet Count Result 298 k/mm3 (150-375); Red Blood Count 2.92 M/mm3 (4.2-5.4); Red Cell Distribution Width 15.8 % (11.5-14.5); White Blood Count 7.9 K/mm3 (4.5-10.0)
[2022-04-22 09:45] LABS: Anion Gap 12 mmol/L (8-16); Blood Urea Nitrogen 45 mg/dL (7-17); Carbon Dioxide 27 mmol/L (22-30); Chloride 106 mmol/L (98-107); Estimated Glomerular Filt Rate 28; Glucose 133 mg/dL (65-110); Sodium 145 mmol/L (137-145)
--- NOTE | 2022-04-22 10:24 | PM.DS ---
DS: Admitting Diagnosis Discharge Date 04/22/2022 Admitting Diagnosis UTI DS: Discharge Diagnosis Discharge Diagnosis (1) Weakness: Code(s): R53.1 - Weakness Status: Acute Assessment and Plan: Patient complains of generalized weakness for 1 week prior to admission. Likely related to acute UTI. TSH, B12, folate within normal limits. Fall precautions implemented and patient educated. She was able to ambulate independently using a walker. (2) Urinary tract infection: Code(s): N39.0 - Urinary tract infection, site not specified Status: Acute Assessment and Plan: Urinalysis abnormal on presentation and patient presented with complaints of urinary incontinence for 1 week. Started on empiric IV Ceftriaxone while awaiting urine culture. Culture with growth of Enterococcus and antibiotics transitioned to PO ampicillin which the patient will continue for a total of 7 days of antibiotic therapy. (3) Heart failure with preserved ejection fraction: Code(s): I50.30 - Unspecified diastolic (congestive) heart failure Status: Chronic Assessment and Plan: Clinically compensated. Received 1 time dose of IV furosemide on admission after receiving 1 L of IV fluids in the ED. patient euvolemic following this. Continue home Lasix 20 mg b.i.d.. (4) Insulin dependent diabetes mellitus: Status: Chronic Assessment and Plan: A1c is 9.4. Blood sugars manage during admission with Accu-Cheks, sliding scale insulin, hypoglycemic protocol. Continue home regimen including Lantus 34 units q.h.s. and NovoLog 12 units scheduled with meals. Continue home Trulicity. monitor blood sugars with meals and at bedtime and follow-up with PCP in 1-2 weeks for review. (5) Chronic kidney disease, stage 4 (severe): Code(s): N18.4 - Chronic kidney disease, stage 4 (severe) Status: Chronic Assessment and Plan: Baseline creatinine 1.9-2.1. Patient slight bump in creatinine to 2.4 following IV Lasix. Creatinine returned to baseline and was 2.1 at time of discharge. Continue with outpatient follow-up and routine lab monitoring. (6) Tremor of both hands: Code(s): R25.1 - Tremor, unspecified Status: Acute Assessment and Plan: Ongoing issue for several months. Has outpatient evaluation with Neurology scheduled (7) Dementia: Code(s): F03.90 - Unspecified dementia, unspecified severity, without behavioral disturbance, psychotic disturbance, mood disturbance, and anxiety Status: Chronic Assessment and Plan: Seems to be at baseline. Continue to monitor mental status (8) Anemia: Code(s): D64.9 - Anemia, unspecified Status: Chronic Assessment and Plan: Review of prior labs demonstrates this to be at baseline. Iron panel was reviewed and iron stores are adequate. B12 and folate within normal limits. Continue oral iron supplementation. DS: Summary Hospital Course Hospital Course: Date of admission: 04/19/2022 Date of discharge: 04/22/2022 Barbara Chakraborty is a 71-year-old female with a history of anemia, CKD stage 4, dementia, HFpEF, insulin-dependent diabetes mellitus, and schizophrenia who presented to the emergency department on 04/19/2022 with complaints of generalized weakness and her daughter noted new incontinence. On presentation to the emergency department, her vital signs were stable, she was afebrile, BUN 55, creatinine 2.1, glucose 269, UA abnormal, CXR with no acute cardiopulmonary disease, and head CT showed no acute intracranial abnormality. She was admitted to the hospitalist service for further evaluation and management. Please see above for further details. She had overall symptomatic improvement and was ambulating independently. She felt comfortable with return home where she lives with her daughter. Discussed with the patient worrisome signs and symptoms for which to return. She will follow up w
[2022-04-22 11:57] LABS: Glucose Point of Care 130 mg/dl (65-105)
[2022-04-22 14:00] VITALS: BP 128/68; PULSE 71; RESP 18; TEMP 36.4; O2SAT 97
--- NOTE | 2022-04-22 15:28 | PCOTNOTE ---
Patient not seen for OT this date. Will continue plan of care.
== END 2022-04-22 16:05 | disposition home or self-care (01) | DRG 690 ==
LOC: ANHED 16:17 → ANH3MEDSUR 17:35
PROVIDERS: Physician Assistant; Admitting Provider Family Medicine; Emergency Provider Emergency Medicine; PCP Hospitalist; Visit Provider Physician Assistant
DX: N39.0 Urinary tract infection, site not specified (principal); I13.0 Hypertensive heart and chronic kidney disease with heart failure and stage 1 through stage 4 chronic kidney disease, or unspecified chronic kidney disease; I50.32 Chronic diastolic (congestive) heart failure; N18.4 Chronic kidney disease, stage 4 (severe); E11.22 Type 2 diabetes mellitus with diabetic chronic kidney disease; E11.40 Type 2 diabetes mellitus with diabetic neuropathy, unspecified; D64.9 Anemia, unspecified; R25.1 Tremor, unspecified; B95.2 Enterococcus as the cause of diseases classified elsewhere; F20.9 Schizophrenia, unspecified; F03.90 Unspecified dementia, unspecified severity, without behavioral disturbance, psychotic disturbance, mood disturbance, and anxiety; Z20.822 Contact with and (suspected) exposure to COVID-19; Z79.4 Long term (current) use of insulin
CPT/HCPCS: 36415; 51701; 70450; 71046; 80048; 80053; 81001; 82607; 82728; 82746; 82948; 83036; 83540; 83550; 83735; 84443; 85025; 85027; 87086; 87147; 87181; 87186; 87502; 93005; 96361; 96365; 97110; 97116; 97161; 97165; 97535; 99285; A9270; J0696; J1815; J1940; J7030; U0003; U0005

== ENCOUNTER 2022-12-19 18:15 | Emergency (ER) | payer MEDICARE, MEDICAID, SELFPAY ==
[2022-12-19] VITALS (14 sets, daily range): BP systolic 120–152; BP diastolic 57–89; PULSE 66–73; RESP 13–17; TEMP 36.6; O2SAT 91–99
--- NOTE | ~2022-12-19 | XR_ITS ---
EXAMINATION: XR chest 1V portable Exam Date/Time: 12/19/2022 18:55 CDT HISTORY: AMS, WEAKNESS Comparison: 04/19/2022. RESULT: Lines, tubes, and devices: Left upper extremity PICC, terminating in the distal SVC. Lungs and pleura: Left lateral costophrenic angle blunting, otherwise clear. Cardiomediastinal silhouette: Stable. Other: No acute osseous or upper abdominal finding. IMPRESSION: Small left pleural effusion. Reviewed, dictated and finalized at location K.
--- NOTE | ~2022-12-19 | CT_ITS ---
EXAMINATION: CT abdomen pelvis w con DATE: 12/19/2022 19:46 INDICATION: LGIB TECHNIQUE: Computed tomography (CT) of the abdomen and pelvis was performed with 100 mL Omnipaque-350 intravenous contrast. Automated exposure control and iterative reconstruction technique were employe d. The dose-length product was 392.44 mGy-cm. COMPARISON: 07/31/2021. FINDINGS: Lower thorax: Coronary artery calcification. Small left effusion. Bibasilar atelectasis Liver: Normal. Biliary/Gallbladder: Gallbladder is normal. No bile duct dilation. Pancreas: No mass or duct dilation. Spleen: Normal. Adrenals:No mass. Kidneys: No mass, stone, or hydronephrosis. GI tract: Mild distal esophageal and gastric wall edema. No small or large bowel dilation. Normal rob endix. Mesentery/Peritoneum: No ascites, mass, or free air. Retroperitoneum: No mass. Atherosclerotic abdominal aortic and/or arterial calcifications. Pelvis: Moderate urinary bladder wall edema. Nondependent intraluminal gas.. Soft Tissues: Mild diffuse body wall edema. Multiple injection granulomas. Bones: No acute osseous finding. IMPRESSION: Small left pleural effusion. Mild esophagitis/gastritis. Moderate bladder wall edema likely represent ing cystitis. Intraluminal urinary bladder gas, may be secondary to infection or recent procedure. Reviewed, dictated and finalized at location K. IMPRESSION: Small left pleural effusion. Mild esophagitis/gastritis. Moderate bladder wall edema likely representing cystitis. Intraluminal urinary bladder gas, may be se condary to infection or recent procedure.
[2022-12-19 19:04] LABS: Basophils Absolute Auto 0.1 K/mm3 (0.0-0.1); Basophils Percent Auto 0.4 % (0.2-1.2); Eosinophils Absolute Auto 0.3 K/mm3 (0-0.3); Eosinophils Percent Auto 2.2 % (0-4.4); Hematocrit 30.6 % (37.0-47.0); Hemoglobin 9.8 g/dL (12.0-15.0); Immature Granulocyte Absolute 0.03 K/mm3 (0.00-0.031); Immature Granulocyte Percent A 0.3 % (0-0.5); Lymphocytes Absolute Auto 2.11 K/mm3 (0.9-3.2); Lymphocytes Percent Auto 17.7 % (18.3-44.2); Mean Corpuscular Hemoglobin 30.1 pg (26-34); Mean Corpuscular Volume 93.9 fl (80-100); Mean Platelet Volume 10.8 fl (7.4-10.4); Monocytes Absolute Auto 0.9 K/mm3 (0.1-0.6); Monocytes Percent Auto 7.6 % (2.6-8.5); Neutrophils Absolute Auto 8.6 K/mm3 (1.3-6.7); Neutrophils Percent Auto 71.8 % (45.5-73.1); Platelet Count Result 346 k/mm3 (150-375); Red Blood Count 3.26 M/mm3 (4.2-5.4); Red Cell Distribution Width 16.2 % (11.5-14.5); White Blood Count 11.9 K/mm3 (4.5-10.0)
[2022-12-19 19:16] LABS: Alanine Aminotransferase 21 U/L (6-35); Albumin Level 3.7 g/dL (3.5-5.1); Alkaline Phosphatase 128 U/L (38-126); Anion Gap 9 mmol/L (8-16); Aspartate Amino Transferase 29 U/L (14-36); Bilirubin,Total 0.3 mg/dL (0.2-1.3); Blood Urea Nitrogen 75 mg/dL (7-17); Calcium 9.4 mg/dL (8.4-10.2); Carbon Dioxide 27 mmol/L (22-30); Chloride 102 mmol/L (98-107); Estimated CRCL calculation 15 ml/min; Estimated Glomerular Filt Rate 19; Glucose 157 mg/dL (65-110); Potassium 4.2 mmol/L (3.4-5.0); Sodium 138 mmol/L (137-145)
--- NOTE | 2022-12-19 19:16 | PC.NURSE ---
1914 - Assumed pt care from ALIREZA Fine and ALIREZA Cason
[2022-12-19 19:20] LABS: INR 1.2; Partial Thromboplastin Time 29.6 SECONDS (22.3-36.8); Prothrombin Time 15.7 Seconds (11.1-14.7)
[2022-12-19 19:27] LABS: Appearance Urine Cloudy (Clear); Bacteria Urine None Seen /hpf; Bilirubin Urine Negative (Negative); Blood Urine Trace (Negative); Color Urine Yellow (Yellow); Glucose Urine UA Trace mg/dL (Negative); Ketones Urine Negative (Negative); Leukocyte Esterase Ur 2+ LEU/UL (Negative); Nitrate Urine Negative (Negative); Non Pathogenic Casts 0-2; Protein Urine 2+ mg/dL (Negative); RBC Urine 0-2 /hpf (0-2); Specific Grav Ur 1.009 (1.001-1.035); Squamous Epithelial Cell Urine None seen /hpf (Few); Urobilinogen Urine 0.2 mg/dL (<2.0); WBC Urine 51-100 /hpf; pH Urine 5.5 (5.0-9.0)
[2022-12-19 19:29] LABS: Add Urine Microscopic? YES
[2022-12-19 19:50] LABS: NT Pro B Type Natriuretic Pept 597 pg/mL (19.9-100)
--- NOTE | 2022-12-19 20:09 | ED.WEAKNESS ---
HPI - Weakness General Chief complaint: Altered Mental Status Stated complaint: AMS Time Seen by Provider: 12/19/22 18:52 History of Present Illness HPI Narrative: Patient has just been discharged from an outside hospital for CHF with fluid overload and osteomyelitis of right great toe, on daptomycin via PICC line, however when her daughter was trying to get her to walk earlier today, she could not get the patient out of bed. Patient unable to ambulate, she has generalized weakness and pain in her right leg. There has also been intermittent blood in her stool over the past year. Related Data Home Medications Medication Instructions Recorded Confirmed atorvastatin 40 mg tablet 40 mg PO HS 06/23/21 04/19/22 pregabalin 150 mg capsule 150 mg PO HS 06/23/21 04/19/22 acetaminophen 325 mg tablet 650 mg PO Q6H PRN Pain 09/19/21 04/19/22 dulaglutide 0.75 mg/0.5 mL 1.5 mg subcut WEEKLY 09/19/21 04/19/22 subcutaneous pen injector (Trulicity) famotidine 20 mg tablet (Pepcid) 20 mg PO DAILY 09/19/21 04/19/22 ferrous sulfate 325 mg (65 mg 325 mg PO DAILY 09/19/21 04/19/22 iron) tablet insulin glargine 100 unit/mL (3 34 unit subcut HS 09/19/21 04/19/22 mL) subcutaneous pen (Lantus Solostar U-100 Insulin) insulin lispro 100 unit/mL 1 - 4 sliding scale dose subcut 09/19/21 04/19/22 subcutaneous pen USEASDIRECTD insulin lispro 100 unit/mL 12 unit subcut TIDWM 09/19/21 04/19/22 subcutaneous pen lidocaine 5 % topical patch 2 patch topical DAILY PRN Back Pain 09/19/21 04/19/22 multivitamin 1 tablet PO DAILY 09/19/21 04/19/22 albuterol sulfate 90 mcg/actuation 2 inh inhalation Q4H PRN Shortness 11/04/21 04/19/22 aerosol inhaler Of Breath Or Wheezing furosemide 20 mg tablet 20 mg PO BID 04/19/22 04/19/22 Allergies Allergy/AdvReac Type Severity Reaction Status Date / Time No Known Allergies Allergy Verified 11/04/21 10:32 Review of Systems Review of Systems: CONST: No fever. HEENT: No sore throat C/V: No chest pain RESP: No cough GI: No abdominal pain, nausea or vomiting, there is a lot of watery stool : Incontinence M/S: No joint pain. SKIN: Rash between thighs NEURO: [No headache or focal numbness or weakness] PSYCH: [No depression] [facility] Past Medical History Medical History (Updated 12/20/22 @ 03:16 by Ale Zapien MD) Anemia Chronic kidney disease, stage 4 (severe) Creatinine ranges from 1.9 to 2.20. COVID (06/2021) Dementia Diabetic neuropathy Heart failure with preserved ejection fraction Hyperkalemia Insulin dependent diabetes mellitus Schizophrenia Venous thrombosis Surgical History Surgical History (Updated 04/19/22 @ 22:04 by Cassandra Rodriguez PA-C) History of cataract extraction with lens replacement History of section Right great toe amputee Family History Family History Mother Diabetes mellitus Acute myocardial infarction Father Heart attack Cancer Sibling Diabetes mellitus Acute myocardial infarction Social History Social History (Updated 04/19/22 @ 22:06 by Cassandra Rodriguez PA-C) Social History: The patient lives with her daughter and grand son in [place]. Lifelong nonsmoker. No alcohol or illicit substance abuse. She designates her daughter, Candelaria Gayle, as her surrogate decision maker. Code status: Full code. Living arrangements: with family Spiritual care concerns: No Exam Narrative: EXAMINATION OF ORGAN SYSTEMS/BODY AREAS: Constitutional: Vital signs per nursing GENERAL:[No acute distress, non-toxic appearing.] HEAD: Normal with no signs of head trauma. EYES: EOMI, conjunctiva normal ENT: Hearing grossly intact LUNGS: Nonlabored breathing. HEART: [Regular rate and rhythm] ABD: [Soft], [nontender to palpation] RECTAL: Grossly brown stool, no severe tenderness to perineum EXT: Normal range of motion; ulcer over right great toe. Warm BLE with normal DP pulses bilatera
--- NOTE | 2022-12-19 20:36 | PC.NURSE ---
Addendum entered by Elisha Gallardo 12/19/22 20:36: during orthostatic pressure testing. Original Note: pt states unable to stand at this time.
--- NOTE | 2022-12-19 20:56 | PC.NURSE ---
PT BEDSIDE GLUCOSE 150. PT HAS BEEN TOLD PER DR. LENNON SHE IS ALLOWED TO EAT. PT DAUGHTER AT BEDSIDE WITH FOOD FOR PT.
[2022-12-19 20:57] LABS: Glucose Point of Care 150 mg/dl (65-105)
[2022-12-19] MEDS: PANTOPRAZOLE SODIUM IV 40 MG VIAL IV PUSH (21:02)
[2022-12-20] VITALS (17 sets, daily range): BP systolic 125–153; BP diastolic 54–97; PULSE 67–73; RESP 14–22; O2SAT 90–95
--- NOTE | 2022-12-20 00:01 | PC.NURSE ---
2107: Called [facility] Transfer Line for transfer. Waiting for call back. 2247: Called for status on provider call back...was on hold until 2329, no answer. 0000: Called [facility] for status on provider call back...per Amber, they have calls out to a physician at [facility], waiting for call back.
--- NOTE | 2022-12-20 01:43 | PC.NURSE ---
0138 - Spoke with Amber from the [facility] transfer center. Pt has been accepted by Dr. Edmond Lara at [facility]. Awaiting bed assignment on the surgical floor.
--- NOTE | 2022-12-20 03:18 | PC.NURSE ---
[address] [facility] transfer called with a room #. Pt going to [facility] Rm [id number]. Received number to call report.
== END 2022-12-20 04:45 | disposition short-term general hospital (02) ==
PROVIDERS: Emergency Medicine; Emergency Provider Emergency Medicine; PCP Hospitalist
DX: N39.0 Urinary tract infection, site not specified (principal); R53.1 Weakness; K92.2 Gastrointestinal hemorrhage, unspecified; I13.0 Hypertensive heart and chronic kidney disease with heart failure and stage 1 through stage 4 chronic kidney disease, or unspecified chronic kidney disease; I50.9 Heart failure, unspecified; N18.4 Chronic kidney disease, stage 4 (severe); E11.22 Type 2 diabetes mellitus with diabetic chronic kidney disease; F03.90 Unspecified dementia, unspecified severity, without behavioral disturbance, psychotic disturbance, mood disturbance, and anxiety; Z79.4 Long term (current) use of insulin
CPT/HCPCS: 36415; 71045; 74177; 80053; 81001; 82948; 83880; 85025; 85610; 85730; 86850; 86900; 86901; 87086; 96365; 99285; A9270; C9113; J0696; Q9967

== ENCOUNTER 2024-06-27 17:06 | Inpatient (IN) | payer MEDICARE, MEDICAID, SELFPAY ==
--- NOTE | ~2024-06-27 | CT_ITS ---
CTA brain carotid Ordering provider: Saad Cobos PA-C History: AMS . Comparison: None. Technique: CT angiogram head and neck was performed following timed intravenous injection of contrast . Thin slice axial images and reformatted coronal images were obtained. Three dimensional reformatted images of the brain were also obtained using a [employer] workstation. DLP: 1190 mGy-cm FINDINGS: HEAD: --ANTERIOR AND MIDDLE CEREBRAL ARTERIES AND BRANCHES: Unremarkable. --INTRACRANIAL INTERNAL CAROTID ARTERIES: Mild atheromatous disease but no significant stenosis. No o cclusion. --BASILAR ARTERY AND BRANCHES: Unremarkable. No significant atheromatous disease. --POSTERIOR CEREBRAL ARTERIES: Unremarkable --POSTERIOR COMMUNICATING ARTERIES: Not well visualized likely related to congenital absence or small size. --ANEURYSM: None visualized. --BRAIN: Please refer to report of CT head performed the same day. --BONES AND SUPERFICIAL SOFT TISSUES: Please refer to report of CT head performed the same day. --PARANASAL SINUSES AND MASTOIDS: Please refer to report of CT head done the same day. NECK: --RIGHT CERVICAL CAROTID SYSTEM: Mild atheromatous disease of the carotid bulb and proximal internal carotid artery without significant stenosis. Percent stenosis per NASCET criteria is 0% No carotid d issection. --LEFT CERVICAL CAROTID SYSTEM: Moderate atheromatous disease of the carotid bulb. Percent stenosis p er NASCET criteria is 29%. No carotid dissection. Otherwise, no significant atheromatous disease or stenosis of the left cervical carotid system. --VERTEBRAL ARTERIES: Normal caliber and contour. --VISUALIZED AORTIC ARCH AND BRANCHING VESSELS: No significant stenosis. --SOFT TISSUES: Unremarkable --CERVICAL SPINE: Age appropriate degenerative changes. IMPRESSION: 1. No large vessel occlusion. 2. Percent stenosis per NASCET criteria is 0% on the right, and 28% on the left. Reviewed, dictated and finalized at location A. E LINER IMPRESSION: 1. No large vessel occlusion. 2. Percent stenosis per NASCET criteria is 0% on the right, and 28% on the le ft.
--- NOTE | ~2024-06-27 | CT_ITS ---
CLINICAL INDICATION: Altered mental status with nausea vomiting and diarrhea COMPARISON: 12/19/2022. TECHNIQUE: Multiple contiguous axial images of the chest, abdomen and pelvis were performed without t he administration of intravenous contrast The dose-length product (DLP) was 517.94 mGy-cm. Automated exposure control and iterative reconstruction technique were employed. FINDINGS/OBSERVATIONS: Lungs: The bilateral lung cavanaugh are clear. Heart: The heart is of normal size, without pericardial effusion. Mediastinum: No significant mediastinal lymphadenopathy. Calcified lymph nodes within the right hilum suggesting prior granulomatous disease. Tunneled right internal jugular hemodialysis catheter. Soft tissues: Unremarkable Bones: Trace degenerative disease within the thoracic spine, without acute fracture. No lytic or blastic lesions identified. Liver: The liver demonstrates homogeneous attenuation and is not enlarged measuring 16 cm in longitudinal di mension. Gallbladder and biliary system: The gallbladder is only minimally distended, and otherwise unremarkable. Pancreas: Limited evaluation of the pancreas secondary to the lack of intravenous contrast. Spleen: The spleen demonstrates homogeneous attenuation and is not enlarged measuring 6 cm in longitudinal di mension. Kidneys: The bilateral kidneys are unremarkable, without hydronephrosis or renal calculi. Adrenal glands: Unremarkable. Gastrointestinal tract: Small hiatal hernia is present. Colonic diverticulosis without surrounding inflammatory change. Appendix: The appendix is not definitively visualized. However, no pericecal inflammatory change is identified suggest the presence of acute appendicitis. Vasculature: Densely calcified atherosclerotic disease. Lymph nodes: No pathologically enlarged or morphologically suspicious lymph nodes within the retroperitoneum or at the root of the mesentery. Pelvic structures: The bladder is distended, and otherwise unremarkable.. The uterus is anteverted and anteflexed, is nodular in contour and contains bulky calcifications. Body wall and musculoskeletal: Small fat-containing umbilical hernia. Moderate degenerative disease within the lumbosacral spine with osteophyte formation, endplate change s and facet arthropathy. No lytic or blastic lesions are noted. IMPRESSION: No acute pathology within the chest. No acute intra-abdominal pathology. Innumerable nonacute findings, as detailed above. Reviewed, dictated and finalized at location A. ER SHREDDER
--- NOTE | ~2024-06-27 | CT_ITS ---
CLINICAL INDICATION: Abdominal pain COMPARISON: 06/27/2024. TECHNIQUE: Multiple contiguous axial images of the abdomen were performed without the administration of intravenous contrast The dose-length product (DLP) was 424.60 mGy-cm. Automated exposure control and iterative reconstruction technique were employed. FINDINGS/OBSERVATIONS: Visualized lower thorax: The bilateral lung bases are clear. The heart is of normal size, without pericardial effusion. Dual lumen catheter extending into the right atrium. Small hiatal hernia is present. Liver: The liver demonstrates homogeneous attenuation and is not enlarged measuring 16 cm in longitudinal di mension. Gallbladder and biliary system: The gallbladder is decompressed, limiting its evaluation. Pancreas: Limited evaluation of the pancreas secondary to the lack of intravenous contrast. Spleen: The spleen demonstrates homogeneous attenuation and is not enlarged measuring 6 cm in longitudinal di mension. Kidneys: Within the bilateral kidneys are traces of residual contrast in the collecting systems, likely from C TA examination performed 3 days earlier for which delayed excretion is present. No hydronephrosis or obstructing renal calculi. The course of the bilateral ureters is incompletely visualized, as only an abdomen was requested. The visualized course of the bilateral ureters is unremarkable. Adrenal glands: Unremarkable. Gastrointestinal tract: Fecal stasis within the colon. Appendix: The appendix is of normal caliber (axial series, images 120-134). Vasculature: Densely calcified atherosclerotic disease. Lymph nodes: No pathologically enlarged or morphologically suspicious lymph nodes within the retroperitoneum or at the root of the mesentery. Body wall and musculoskeletal: Moderate degenerative disease is redemonstrated within the lumbosacral spine, specifically at the lev el of L4/L5 with endplate changes and irregularity of the inferior endplate of L4. IMPRESSION: Trace residual contrast in the bilateral renal collecting systems, suggesting delayed excretion (? Po or renal function?). No obstructive uropathy. No additional intra-abdominal abnormalities Reviewed, dictated and finalized at location A. S STORE CHECKER IMPRESSION: Trace residual contrast in the bilateral renal collecting systems, suggesting d elayed excretion (? Poor renal function?). No obstructive uropathy. No additional intra-abdominal abnormalities
--- NOTE | ~2024-06-27 | XR_ITS ---
CHEST RADIOGRAPH CLINICAL HISTORY: AMS, eval for PNA . COMPARISON: 04/19/2022 TECHNIQUE: Single portable view of the chest. FINDINGS Right internal jugular central venous hemodialysis catheter with its tip projecting over the cavoatri al junction. The remainder of the cardiomediastinal silhouette is otherwise unremarkable. The lungs are clear. Visualized osseous structures and soft tissues are unremarkable. IMPRESSION: No focal infiltrate or effusion. Reviewed, dictated and finalized at location A. CAL GENETICS DIRECTOR
--- NOTE | ~2024-06-27 | MR_ITS ---
EXAMINATION: MR brain/brain stem wo con DATE: 06/28/2024 15:54 INDICATION: Cerebrovascular accident. TECHNIQUE: Magnetic resonance imaging (MRI) of the brain and brainstem was performed without intraven ous contrast. COMPARISON: Head CT 06/27/2024 FINDINGS: There is an old infarct in the right thalamus. There are scattered areas of nonspecific inc reased T2-weighted signal intensity in the cerebral white matter and chago. There is no intracranial h emorrhage, acute infarction, or abnormal intracranial mass lesion. The ventricles are normal in size. The paranasal sinuses are clear. There are likely changes of ocular lens replacement surgeries. Ther e are bilateral mastoid effusions. IMPRESSION: 1. Old lacunar infarct in the right thalamus. 2. Moderate nonspecific cerebral white matter disease and pontine disease, which likely represents ch ronic small vessel ischemic disease. Reviewed, dictated and finalized at location A. TRUCTION TRADES CONTRACTOR IMPRESSION: 1. Old lacunar infarct in the right thalamus. 2. Moderate nonspecific cerebral white matter disease and pontine disease, whic h likely represents chronic small vessel ischemic disease.
--- NOTE | ~2024-06-27 | CT_ITS ---
History: Altered mental status PROCEDURE: CT head without contrast. COMPARISON: 04/19/2022 TECHNIQUE: Axial imaging of the head performed from the skull base to the vertex without IV contrast. Sagittal a nd coronal reformations obtained. DLP: 605 mGy-cm FINDINGS: The ventricles are normal in size, shape and position. There is no mass, mass effect or midline shift. There is no abnormal extra-axial fluid collection or intracranial hemorrhage. Visualized paranasal sinuses are clear. The mastoid air cells are well aerated. No acute displaced fractures within the overlying cranium. Impression: No acute intracranial hemorrhage or suspicious mass effect. Reviewed, dictated and finalized at location A. HOLOGIST CHIEF Impression: No acute intracranial hemorrhage or suspicious mass effect.
--- NOTE | 2024-06-27 17:12 | ECG_ITS ---
Test Date: 2024-06-27 17:20:35 Measurements Intervals [place] Rate: 88 P: -14 MA: 158 QRS: 33 QRSD: 63 T: -18 QT: 344 QTc: 417 Interpretive Statements SINUS RHYTHM NONSPECIFIC T WAVE ABNORMALITY No previous ECG available for comparison Electronically Signed On 06-29-2024 17:12:48 [employer] by Wyatt Duvall M.D.
[2024-06-27 17:17] LABS: Glucose Point of Care 157 mg/dl (65-105)
--- NOTE | 2024-06-27 17:19 | ED_ITS ---
HPI - Dizziness General Chief Complaint: Altered Mental Status <Saad Cobos PA-C - Last Filed: 06/28/24 01:02> Stated Complaint: not acting right <Saad Cobos PA-C - Last Filed: 06/28/24 01:02> Time Seen by Provider: 06/27/24 17:06 <Saad Cobos PA-C - Last Filed: 06/28/24 01:02> Source: family and EMS <HERO Awad Last Filed: 06/28/24 01:02> Mode of arrival: EMS <HERO Awad Last Filed: 06/28/24 01:02> Limitations: dementia <HERO Awad Last Filed: 06/28/24 01:02> History of Present Illness HPI Narrative: This is a 72-year-old female with PMH of insulin-dependent diabetes, schizophrenia, dementia, CHF, ESRD presents to the ED for chief complaint of altered mental status. Family members called EMS today when they noticed that patient was not acting her normal self. Her daughter, who is JOCELYN, is bedside and states that she is normally more talkative and will do more than just sitting around in the chair which is what was going on today. States that just yesterday she was talking more and more active. States that she had just been staring off into space and not talking to anyone today. They were concerned because she has had multiple episodes of diarrhea over the past couple of days. States last admission was several months ago. Reports that she has right central dialysis line in place and is currently in training to do home dialysis. She was due for dialysis today and missed on Thursday 3 days ago as well. States that her nephrology team is with [facility]. Last known well yesterday evening in the 5-6 o'clock p.m. range. Family states patient was asleep by 6:00 p.m.. <Saad Cobos PA-C - Last Filed: 06/28/24 01:02> Related Data Home Medications: Home Medications ?Medication ?Instructions ?Recorded ?Confirmed ?Last Taken ?Type atorvastatin 40 mg tablet 20 mg PO HS 06/23/21 06/28/24 09/19/21 History pregabalin 150 mg capsule 150 mg PO .COMPLEX 06/23/21 06/28/24 09/19/21 History acetaminophen 325 mg tablet 650 mg PO Q6H PRN Pain 09/19/21 06/28/24 Unknown History ferrous sulfate 325 mg (65 mg 325 mg PO DAILY 09/19/21 06/28/24 09/19/21 History iron) tablet insulin glargine 100 unit/mL (3 18 unit subcut HS 09/19/21 06/28/24 09/19/21 History mL) subcutaneous pen (Lantus Solostar U-100 Insulin) insulin lispro 100 unit/mL 1 - 4 sliding scale dose subcut 09/19/21 06/28/24 Unknown History subcutaneous pen USEASDIRECTD lidocaine 5 % topical patch 2 patch topical DAILY PRN Back Pain 09/19/21 06/28/24 Unknown History multivitamin 1 tablet PO DAILY 09/19/21 06/28/24 Unknown History albuterol sulfate 90 mcg/actuation 2 inh inhalation Q4H PRN Shortness 11/04/21 06/28/24 Unknown History aerosol inhaler Of Breath Or Wheezing aspirin 81 mg chewable tablet 81 mg PO DAILY 06/28/24 06/28/24 Unknown History benztropine 2 mg tablet 2 mg PO HS 06/28/24 06/28/24 Unknown History calcium phosphate,dibasic 77 1 tablet PO WEEKLY 06/28/24 06/28/24 Unknown History mg-vitamin D3 400 unit tablet hydralazine 25 mg tablet 25 mg PO .q12 06/28/24 06/28/24 Unknown History nifedipine 60 mg tablet,extended 60 mg PO HS 06/28/24 06/28/24 Unknown History release pantoprazole 40 mg tablet,delayed 40 mg PO Q12H 06/28/24 06/28/24 Unknown History release tramadol 25 mg tablet 25 mg PO Q6H PRN pain 06/28/24 06/28/24 Unknown History <Saad Cobos PA-C - Last Filed: 06/28/24 01:02> Allergies/Adverse Reactions: Allergies Allergy/AdvReac Type Severity Reaction Status Date / Time No Known Allergies Allergy Verified 06/28/24 09:12 <Saad Cobos PA-C - Last Filed: 06/28/24 01:02> Review of Systems 2 Review of Systems: All systems as dictated in HPI <Saad Cobos PA-C - Last Filed: 06/28/24 01:02> PMFSH Past Medical History Medical History: Medical History Heart failure with preserved ejection fraction Insulin dependent diabetes mellitus Chronic kidney disease, stage 4 (severe) Creatinine ranges from 1.9 to 2.20. Venous thrombosis Anemia Hyperkalemia Dementia COVID (06/2021) Schizophrenia Diabetic neuropathy <HERO Awad Last Filed: 06/28/24 01:02> Surgical History Surgical History: Surgical History History of cataract extraction with lens replacement History of section Right great toe amputee <Saad Cobos PA-C - Last Filed: 06/28/24 01:02> Family History Family History: Family History Mother Diabetes mellitus Acute myocardial infarction Father Heart attack Cancer Sibling Diabetes mellitus Acute myocardial infarction <HERO Awad Last Filed: 06/28/24 01:02> Social History Social History: Social History Social History: The patient lives with her daughter and grand son in [place]. Lifelong nonsmoker. No alcohol or illicit substance abuse. She designates her daughter, Candelaria Gayle, as her surrogate decision maker. Code status: Full code. Smoking status: Never smoker Alcohol intake: former Substance use: never Do You Feel Safe in your Home?: No Lack of Transportation: No Lack of Food: Never True Current Housing: I Have Housing Concerned About Future Housing: No Difficulty Paying Gas/Electric Bills: No Difficulty Paying for Meds: No Currently Unemployed: No Education: Decline to Answer Difficulty w/ Childcare or Family Care: No Living arrangements: with family Spiritual care concerns: No <HERO Awad Last Filed: 06/28/24 01:02> Exam 2 Narrative: GENERAL: Well-appearing, well-nourished, and in no acute distress. HEAD: Normocephalic, atraumatic. EYES: PERRLA and EOMI. ENT: Nares clear, no rhinorrhea or epistaxis. Mucous membranes moist. Oropharynx without tonsillar hypertrophy exudate or other lesions. NECK: Supple. No adenopathy or masses. CHEST: Right chest wall dialysis catheter in place. No respiratory distress. Clear to auscultation. No wheezes rales or rhonchi HEART: Regular rate and rhythm. No murmur heard. Normal peripheral pulses. ABDOMEN: Soft, nontender, nondistended, normal active bowel sounds. MSK: Normal range of motion. No edema. SKIN: Warm, dry, no rash. NEURO: Alert. Tracks my movements. Resting tremor at baseline. Does not respond verbally to commands or questions PSYCH: Normal mood and affect. <Saad Cobos PA-C - Last Filed: 06/28/24 01:02> Course BUSINESS SERVICES MANAGER/PA Physician Supervision Patient's HPI, Exam, and MDM were reviewed and I agreed with the workup and disposition done in the emergency department by the MLP. I was available for consultation and did have my own independent [id number] time with the patient and the patient's family member at bedside her daughter. Patient's daughter states that she was otherwise in her normal state of health when she went to bed at 6:00 p.m. last night and woke up feeling like this. Patient normally is able to verbalize and speak normally but not able to today. On my examination patient does have pinpoint pupils in combination with her clinical picture could raise suspicion for a stroke or other cause of encephalopathy. Last known well 6:00 p.m. last night outside window for any kind thrombolytics or thrombectomy window. Workup conducted by midlevel provider including CT head and CT angiography pending. Patient has not missed any dialysis sessions but does have a potassium 5.7, no clinical manifestation of her hyperkalemia. will provide Lokelma. We did speak to the hospitalist who recommended neurological consultation and their recommendations. Neurology at [facility] was spoken to and recommended CT angiography imaging. Please see remaining dictation by midlevel provider for final workup and plan for admission. <Spike Hameed MD - Last Filed: 06/28/24 22:47> Vital Signs Vital signs: Vital Signs Temperature 36.7 C 06/27/24 17:23 Pulse Rate 85 06/27/24 17:23 Respiratory Rate 18 06/27/24 17:23 Blood Pressure 165/73 H 06/27/24 17:23 Pulse Oximetry 99 06/27/24 17:23 Temperature 36.6 C 06/28/24 20:43 Pulse Rate 68 06/28/24 21:00 Respiratory Rate 18 06/28/24 20:43 Blood Pressure 142/73 H 06/28/24 21:00 Pulse Oximetry 93 06/28/24 20:24 Oxygen Delivery Room Air 06/28/24 20:00 <Saad Cobos PA-C - Last Filed: 06/28/24 01:02> Vital Signs Temperature 36.7 C 06/27/24 17:23 Pulse Rate 85 06/27/24 17:23 Respiratory Rate 18 06/27/24 17:23 Blood Pressure 165/73 H 06/27/24 17:23 Pulse Oximetry 99 06/27/24 17:23 Temperature 36.6 C 06/28/24 20:43 Pulse Rate 68 06/28/24 21:00 Respiratory Rate 18 06/28/24 20:43 Blood Pressure 142/73 H 06/28/24 21:00 Pulse Oximetry 93 06/28/24 20:24 Oxygen Delivery Room Air 06/28/24 20:00 <Spike Hameed MD - Last Filed: 06/28/24 22:47> MDM - Dizziness MDM Narrative Medical decision making narrative: This is a 73-year-old female who presents to the ED with family member for altered mental status and ?catatonic state. ? Vitals show elevated blood pressure but otherwise normal. Exam remarkable for the above. Difficult to assess for NIH scale, however patient is alert in the room. EKG with sinus rhythm and no STEMI or other acute ischemic findings. Lab work lab work largely unremarkable aside from elevated BUN and creatinine as expected with patient being on dialysis for ESRD. Potassium 5.7 and no other electrolyte abnormality. Troponin is negative. Altered mental status workup coming back unremarkable overall including a negative UA and negative chest x-ray. Chest abdomen and pelvis CT scans are negative for acute findings. Drug screen negative. Viral swabs negative. Non con head CT does not reveal any bleed. CTA head and neck does not show any elevated LVO or obvious acute stroke. Presentation most likely consistent with worsening dementia, schizophrenia however CVA is still on the differential. Vitals have remained stable here in the ED. I was able to consult with [facility] (Dr. Sterling) who did recommend getting a CTA head and neck are and no further medical recommendations at this time. Discussed the case with hospitalist Dr. Owens who does recommend admission and placing the patient on 1 L of fluids at 100 per hour. Patient's family is understanding and agreeable with plan for admission at this time. Her vitals have remained stable and neuro exam is unchanged <Saad Cobos PA-C - Last Filed: 06/28/24 01:02> Lab Data Result diagrams: 06/28/24 05:35 06/28/24 05:35 <Saad Cobos PA-C - Last Filed: 06/28/24 01:02> Labs: Lab Results 06/27/24 06/27/24 06/27/24 Range/Units 17:13 17:28 17:29 WBC (4.5-10.0) K/mm3 RBC (4.2-5.4) M/mm3 Hgb (12.0-15.0) g/dL Hct (37.0-47.0) % MCV (80-100) fl MCH (26-34) pg MCHC (32-36) g/dl RDW (11.5-14.5) % Plt Count (150-375) k/mm3 MPV (7.4-10.4) fl Immature Gran % (Auto) Neut % (Auto) Lymph % (Auto) [place] % (Auto) Eos % (Auto) Baso % (Auto) Lymph # (Auto) [place] # (Auto) Eos # (Auto) Baso # (Auto) Abs Immat Gran (auto) Absolute Neuts (auto) Absolute Nucleated RBC Total Counted Neutrophils % (Manual) (46-73) % Band Neutrophils % (0-6) % Lymphocytes % (Manual) (18-44) % Monocytes % (Manual) (3-9) % Nucleated RBC % Abs Neuts (Manual) (1.7-7.2) K/mm3 Abs Lymphs (Manual) (1.1-4.5) K/mm3 Abs Monocytes (Manual) (0.1-0.90) K/mm3 Platelet Estimate (Adequate) Hypochromasia Anisocytosis Schistocytes PT (11.1-14.7) Seconds INR APTT (22.3-36.8) Seconds Sodium (137-145) mmol/L Potassium (3.4-5.0) mmol/L Chloride (98-107) mmol/L Carbon Dioxide (22-30) mmol/L Anion Gap (4-12) mmol/L BUN (7-17) mg/dL Creatinine (0.7-1.0) mg/dL Estim Creat Clear Calc Estimated GFR (59 - ) Glucose (65-110) mg/dL POC Capillary Glucose 157 H (65-105) mg/dl Lactic Acid (0.7-2.0) mmol/L Calcium (8.4-10.2) mg/dL Phosphorus 3.7 (2.5-4.5) mg/dL Magnesium 1.6 (1.6-2.3) mg/dL Total Bilirubin (0.2-1.3) mg/dL AST (14-36) U/L ALT (6-35) U/L Alkaline Phosphatase (38-126) U/L Ammonia Cancelled Total Creatine Kinase (30-135) U/L Troponin I (0.000-0.034) ng/mL Total Protein (6.3-8.2) g/dL Albumin (3.5-5.1) g/dL Vitamin B12 (239-931) pg/mL Folate (2.76->20) ng/mL TSH (0.465-4.680) uIU/mL TSH (Reflex) (0.465-4.68) uIU/mL Urine Color (Yellow) Urine Appearance (Clear) Urine pH (5.0-9.0) Ur Specific [place] (1.001-1.035) Urine Protein (Negative) mg/dL Urine Glucose (UA) (Negative) mg/dL Urine Ketones (Negative) mg/dL Ur Blood (Man) (Negative) Urine Nitrate (Negative) Urine Bilirubin (Negative) Urine Urobilinogen (<2.0) mg/dL Add Ur Microanalysis Leukocyte Esterase Rfl (Negative) RENEE/UL Urine RBC (0-2) /hpf Urine WBC (0-3) /hpf Ur Squamous Epith Cells (Few) /hpf Urine Bacteria /hpf Urine Casts Salicylates < 1.0 L (2-20) mg/dL Urine Opiates Screen (Negative) Urine Methadone Screen (Negative) Acetaminophen < 10 L (10-30) ug/mL Ur Barbiturates Screen (Negative) Ur Phencyclidine Scrn (Negative) Ur Amphetamine Screen (Negative) U Benzodiazepines Scrn (Negative) Urine Cocaine Screen (Negative) U Cannabinoids Screen (Negative) Ethyl Alcohol < 10 (<10) mg/dL Hep Bs Antigen (Negative) Hep Bs Antibody Influenza A (RT-PCR) (Negative) Influenza B (RT-PCR) (Negative) RSV (RT-PCR) (Negative) SARS-CoV-2 RNA (RT-PCR) (Negative) 06/27/24 06/27/24 06/27/24 Range/Units 17:31 19:01 19:28 WBC 9.6 (4.5-10.0) K/mm3 RBC 3.88 L (4.2-5.4) M/mm3 Hgb 12.5 (12.0-15.0) g/dL Hct 39.1 (37.0-47.0) % MCV 100.8 H (80-100) fl MCH 32.2 (26-34) pg MCHC 32.0 (32-36) g/dl RDW 17.6 H (11.5-14.5) % Plt Count 269 (150-375) k/mm3 MPV 11.4 H (7.4-10.4) fl Immature Gran % (Auto) Not Reportable Neut % (Auto) Not Reportable Lymph % (Auto) Not Reportable [place] % (Auto) Not Reportable Eos % (Auto) Not Reportable Baso % (Auto) Not Reportable Lymph # (Auto) Not Reportable [place] # (Auto) Not Reportable Eos # (Auto) Not Reportable Baso # (Auto) Not Reportable Abs Immat Gran (auto) Not Reportable Absolute Neuts (auto) Not Reportable Absolute Nucleated RBC Not Reportable Total Counted 100 Neutrophils % (Manual) 86 H (46-73) % Band Neutrophils % 2 (0-6) % Lymphocytes % (Manual) 4.0 L (18-44) % Monocytes % (Manual) 8 (3-9) % Nucleated RBC % Not Reportable Abs Neuts (Manual) 8.44 H (1.7-7.2) K/mm3 Abs Lymphs (Manual) 0.38 L (1.1-4.5) K/mm3 Abs Monocytes (Manual) 0.76 (0.1-0.90) K/mm3 Platelet Estimate Adequate (Adequate) Hypochromasia 1+ Anisocytosis 2+ Schistocytes None seen PT 14.7 (11.1-14.7) Seconds INR 1.1 APTT 27.9 (22.3-36.8) Seconds Sodium 142 (137-145) mmol/L Potassium 5.7 H (3.4-5.0) mmol/L Chloride 106 (98-107) mmol/L Carbon Dioxide 25 (22-30) mmol/L Anion Gap 11 (4-12) mmol/L BUN 67 H (7-17) mg/dL Creatinine 5.87 H (0.7-1.0) mg/dL Estim Creat Clear Calc Not Reportable Estimated GFR 9 L (59 - ) Glucose 139 H (65-110) mg/dL POC Capillary Glucose (65-105) mg/dl Lactic Acid 1.6 (0.7-2.0) mmol/L Calcium 9.3 (8.4-10.2) mg/dL Phosphorus (2.5-4.5) mg/dL Magnesium (1.6-2.3) mg/dL Total Bilirubin 0.5 (0.2-1.3) mg/dL AST 29 (14-36) U/L ALT 23 (6-35) U/L Alkaline Phosphatase 77 (38-126) U/L Ammonia 11 Total Creatine Kinase 35 (30-135) U/L Troponin I < 0.012 (0.000-0.034) ng/mL Total Protein 8.0 (6.3-8.2) g/dL Albumin 4.1 (3.5-5.1) g/dL Vitamin B12 (239-931) pg/mL Folate (2.76->20) ng/mL TSH 1.150 (0.465-4.680) uIU/mL TSH (Reflex) (0.465-4.68) uIU/mL Urine Color Yellow (Yellow) Urine Appearance Clear (Clear) Urine pH 5.5 (5.0-9.0) Ur Specific [place] 1.016 (1.001-1.035) Urine Protein 3+ H (Negative) mg/dL Urine Glucose (UA) 1+ H (Negative) mg/dL Urine Ketones Negative (Negative) mg/dL Ur Blood (Man) Negative (Negative) Urine Nitrate Negative (Negative) Urine Bilirubin Negative (Negative) Urine Urobilinogen 0.2 (<2.0) mg/dL Add Ur Microanalysis Reviewed Leukocyte Esterase Rfl Negative (Negative) RENEE/UL Urine RBC 0-2 (0-2) /hpf Urine WBC 0-5 (0-3) /hpf Ur Squamous Epith Cells None seen (Few) /hpf Urine Bacteria None seen /hpf Urine Casts 6-10 Salicylates (2-20) mg/dL Urine Opiates Screen Negative (Negative) Urine Methadone Screen Negative (Negative) Acetaminophen (10-30) ug/mL Ur Barbiturates Screen Negative (Negative) Ur Phencyclidine Scrn Negative (Negative) Ur Amphetamine Screen Negative (Negative) U Benzodiazepines Scrn Negative (Negative) Urine Cocaine Screen Negative (Negative) U Cannabinoids Screen Negative (Negative) Ethyl Alcohol (<10) mg/dL Hep Bs Antigen (Negative) Hep Bs Antibody Influenza A (RT-PCR) (Negative) Influenza B (RT-PCR) (Negative) RSV (RT-PCR) (Negative) SARS-CoV-2 RNA (RT-PCR) (Negative) 06/27/24 06/28/24 06/28/24 Range/Units 20:19 05:34 05:35 WBC 8.0 (4.5-10.0) K/mm3 RBC 3.59 L (4.2-5.4) M/mm3 Hgb 11.7 L (12.0-15.0) g/dL Hct 35.7 L (37.0-47.0) % MCV 99.4 (80-100) fl MCH 32.6 (26-34) pg MCHC 32.8 (32-36) g/dl RDW 17.8 H (11.5-14.5) % Plt Count 237 (150-375) k/mm3 MPV 11.1 H (7.4-10.4) fl Immature Gran % (Auto) 0.3 Neut % (Auto) 77.1 H Lymph % (Auto) 13.1 L [place] % (Auto) 9.1 H Eos % (Auto) 0.1 Baso % (Auto) 0.3 Lymph # (Auto) 1.05 [place] # (Auto) 0.7 H Eos # (Auto) 0.0 Baso # (Auto) 0.0 Abs Immat Gran (auto) 0.02 Absolute Neuts (auto) 6.2 Absolute Nucleated RBC 0.000 Total Counted Neutrophils % (Manual) (46-73) % Band Neutrophils % (0-6) % Lymphocytes % (Manual) (18-44) % Monocytes % (Manual) (3-9) % Nucleated RBC % 0.0 Abs Neuts (Manual) (1.7-7.2) K/mm3 Abs Lymphs (Manual) (1.1-4.5) K/mm3 Abs Monocytes (Manual) (0.1-0.90) K/mm3 Platelet Estimate (Adequate) Hypochromasia Anisocytosis Schistocytes PT (11.1-14.7) Seconds INR APTT (22.3-36.8) Seconds Sodium 141 (137-145) mmol/L Potassium 4.9 (3.4-5.0) mmol/L Chloride 105 (98-107) mmol/L Carbon Dioxide 24 (22-30) mmol/L Anion Gap 12 (4-12) mmol/L BUN 68 H (7-17) mg/dL Creatinine 6.57 H (0.7-1.0) mg/dL Estim Creat Clear Calc Not Reportable Estimated GFR 8 L (59 - ) Glucose 139 H (65-110) mg/dL POC Capillary Glucose (65-105) mg/dl Lactic Acid (0.7-2.0) mmol/L Calcium 9.0 (8.4-10.2) mg/dL Phosphorus 4.8 H (2.5-4.5) mg/dL Magnesium 1.6 (1.6-2.3) mg/dL Total Bilirubin 0.4 (0.2-1.3) mg/dL AST 26 (14-36) U/L ALT 20 (6-35) U/L Alkaline Phosphatase 73 (38-126) U/L Ammonia 13 Total Creatine Kinase (30-135) U/L Troponin I (0.000-0.034) ng/mL Total Protein 7.0 (6.3-8.2) g/dL Albumin 3.6 (3.5-5.1) g/dL Vitamin B12 572.0 (239-931) pg/mL Folate 8.4 (2.76->20) ng/mL TSH (0.465-4.680) uIU/mL TSH (Reflex) 1.030 (0.465-4.68) uIU/mL Urine Color (Yellow) Urine Appearance (Clear) Urine pH (5.0-9.0) Ur Specific [place] (1.001-1.035) Urine Protein (Negative) mg/dL Urine Glucose (UA) (Negative) mg/dL Urine Ketones (Negative) mg/dL Ur Blood (Man) (Negative) Urine Nitrate (Negative) Urine Bilirubin (Negative) Urine Urobilinogen (<2.0) mg/dL Add Ur Microanalysis Leukocyte Esterase Rfl (Negative) RENEE/UL Urine RBC (0-2) /hpf Urine WBC (0-3) /hpf Ur Squamous Epith Cells (Few) /hpf Urine Bacteria /hpf Urine Casts Salicylates (2-20) mg/dL Urine Opiates Screen (Negative) Urine Methadone Screen (Negative) Acetaminophen (10-30) ug/mL Ur Barbiturates Screen (Negative) Ur Phencyclidine Scrn (Negative) Ur Amphetamine Screen (Negative) U Benzodiazepines Scrn (Negative) Urine Cocaine Screen (Negative) U Cannabinoids Screen (Negative) Ethyl Alcohol (<10) mg/dL Hep Bs Antigen Negative (Negative) Hep Bs Antibody Positive Influenza A (RT-PCR) Negative (Negative) Influenza B (RT-PCR) Negative (Negative) RSV (RT-PCR) Negative (Negative) SARS-CoV-2 RNA (RT-PCR) Negative (Negative) <Saad Cobos PA-C - Last Filed: 06/28/24 01:02> Lab Results 06/27/24 06/27/24 06/27/24 Range/Units 17:13 17:28 17:29 WBC (4.5-10.0) K/mm3 RBC (4.2-5.4) M/mm3 Hgb (12.0-15.0) g/dL Hct (37.0-47.0) % MCV (80-100) fl MCH (26-34) pg MCHC (32-36) g/dl RDW (11.5-14.5) % Plt Count (150-375) k/mm3 MPV (7.4-10.4) fl Immature Gran % (Auto) Neut % (Auto) Lymph % (Auto) [place] % (Auto) Eos % (Auto) Baso % (Auto) Lymph # (Auto) [place] # (Auto) Eos # (Auto) Baso # (Auto) Abs Immat Gran (auto) Absolute Neuts (auto) Absolute Nucleated RBC Total Counted Neutrophils % (Manual) (46-73) % Band Neutrophils % (0-6) % Lymphocytes % (Manual) (18-44) % Monocytes % (Manual) (3-9) % Nucleated RBC % Abs Neuts (Manual) (1.7-7.2) K/mm3 Abs Lymphs (Manual) (1.1-4.5) K/mm3 Abs Monocytes (Manual) (0.1-0.90) K/mm3 Platelet Estimate (Adequate) Hypochromasia Anisocytosis Schistocytes PT (11.1-14.7) Seconds INR APTT (22.3-36.8) Seconds Sodium (137-145) mmol/L Potassium (3.4-5.0) mmol/L Chloride (98-107) mmol/L Carbon Dioxide (22-30) mmol/L Anion Gap (4-12) mmol/L BUN (7-17) mg/dL Creatinine (0.7-1.0) mg/dL Estim Creat Clear Calc Estimated GFR (59 - ) Glucose (65-110) mg/dL POC Capillary Glucose 157 H (65-105) mg/dl Lactic Acid (0.7-2.0) mmol/L Calcium (8.4-10.2) mg/dL Phosphorus 3.7 (2.5-4.5) mg/dL Magnesium 1.6 (1.6-2.3) mg/dL Total Bilirubin (0.2-1.3) mg/dL AST (14-36) U/L ALT (6-35) U/L Alkaline Phosphatase (38-126) U/L Ammonia Cancelled Total Creatine Kinase (30-135) U/L Troponin I (0.000-0.034) ng/mL Total Protein (6.3-8.2) g/dL Albumin (3.5-5.1) g/dL Vitamin B12 (239-931) pg/mL Folate (2.76->20) ng/mL TSH (0.465-4.680) uIU/mL TSH (Reflex) (0.465-4.68) uIU/mL Urine Color (Yellow) Urine Appearance (Clear) Urine pH (5.0-9.0) Ur Specific [place] (1.001-1.035) Urine Protein (Negative) mg/dL Urine Glucose (UA) (Negative) mg/dL Urine Ketones (Negative) mg/dL Ur Blood (Man) (Negative) Urine Nitrate (Negative) Urine Bilirubin (Negative) Urine Urobilinogen (<2.0) mg/dL Add Ur Microanalysis Leukocyte Esterase Rfl (Negative) RENEE/UL Urine RBC (0-2) /hpf Urine WBC (0-3) /hpf Ur Squamous Epith Cells (Few) /hpf Urine Bacteria /hpf Urine Casts Salicylates < 1.0 L (2-20) mg/dL Urine Opiates Screen (Negative) Urine Methadone Screen (Negative) Acetaminophen < 10 L (10-30) ug/mL Ur Barbiturates Screen (Negative) Ur Phencyclidine Scrn (Negative) Ur Amphetamine Screen (Negative) U Benzodiazepines Scrn (Negative) Urine Cocaine Screen (Negative) U Cannabinoids Screen (Negative) Ethyl Alcohol < 10 (<10) mg/dL Hep Bs Antigen (Negative) Hep Bs Antibody Influenza A (RT-PCR) (Negative) Influenza B (RT-PCR) (Negative) RSV (RT-PCR) (Negative) SARS-CoV-2 RNA (RT-PCR) (Negative) 06/27/24 06/27/24 06/27/24 Range/Units 17:31 19:01 19:28 WBC 9.6 (4.5-10.0) K/mm3 RBC 3.88 L (4.2-5.4) M/mm3 Hgb 12.5 (12.0-15.0) g/dL Hct 39.1 (37.0-47.0) % MCV 100.8 H (80-100) fl MCH 32.2 (26-34) pg MCHC 32.0 (32-36) g/dl RDW 17.6 H (11.5-14.5) % Plt Count 269 (150-375) k/mm3 MPV 11.4 H (7.4-10.4) fl Immature Gran % (Auto) Not Reportable Neut % (Auto) Not Reportable Lymph % (Auto) Not Reportable [place] % (Auto) Not Reportable Eos % (Auto) Not Reportable Baso % (Auto) Not Reportable Lymph # (Auto) Not Reportable [place] # (Auto) Not Reportable Eos # (Auto) Not Reportable Baso # (Auto) Not Reportable Abs Immat Gran (auto) Not Reportable Absolute Neuts (auto) Not Reportable Absolute Nucleated RBC Not Reportable Total Counted 100 Neutrophils % (Manual) 86 H (46-73) % Band Neutrophils % 2 (0-6) % Lymphocytes % (Manual) 4.0 L (18-44) % Monocytes % (Manual) 8 (3-9) % Nucleated RBC % Not Reportable Abs Neuts (Manual) 8.44 H (1.7-7.2) K/mm3 Abs Lymphs (Manual) 0.38 L (1.1-4.5) K/mm3 Abs Monocytes (Manual) 0.76 (0.1-0.90) K/mm3 Platelet Estimate Adequate (Adequate) Hypochromasia 1+ Anisocytosis 2+ Schistocytes None seen PT 14.7 (11.1-14.7) Seconds INR 1.1 APTT 27.9 (22.3-36.8) Seconds Sodium 142 (137-145) mmol/L Potassium 5.7 H (3.4-5.0) mmol/L Chloride 106 (98-107) mmol/L Carbon Dioxide 25 (22-30) mmol/L Anion Gap 11 (4-12) mmol/L BUN 67 H (7-17) mg/dL Creatinine 5.87 H (0.7-1.0) mg/dL Estim Creat Clear Calc Not Reportable Estimated GFR 9 L (59 - ) Glucose 139 H (65-110) mg/dL POC Capillary Glucose (65-105) mg/dl Lactic Acid 1.6 (0.7-2.0) mmol/L Calcium 9.3 (8.4-10.2) mg/dL Phosphorus (2.5-4.5) mg/dL Magnesium (1.6-2.3) mg/dL Total Bilirubin 0.5 (0.2-1.3) mg/dL AST 29 (14-36) U/L ALT 23 (6-35) U/L Alkaline Phosphatase 77 (38-126) U/L Ammonia 11 Total Creatine Kinase 35 (30-135) U/L Troponin I < 0.012 (0.000-0.034) ng/mL Total Protein 8.0 (6.3-8.2) g/dL Albumin 4.1 (3.5-5.1) g/dL Vitamin B12 (239-931) pg/mL Folate (2.76->20) ng/mL TSH 1.150 (0.465-4.680) uIU/mL TSH (Reflex) (0.465-4.68) uIU/mL Urine Color Yellow (Yellow) Urine Appearance Clear (Clear) Urine pH 5.5 (5.0-9.0) Ur Specific [place] 1.016 (1.001-1.035) Urine Protein 3+ H (Negative) mg/dL Urine Glucose (UA) 1+ H (Negative) mg/dL Urine Ketones Negative (Negative) mg/dL Ur Blood (Man) Negative (Negative) Urine Nitrate Negative (Negative) Urine Bilirubin Negative (Negative) Urine Urobilinogen 0.2 (<2.0) mg/dL Add Ur Microanalysis Reviewed Leukocyte Esterase Rfl Negative (Negative) RENEE/UL Urine RBC 0-2 (0-2) /hpf Urine WBC 0-5 (0-3) /hpf Ur Squamous Epith Cells None seen (Few) /hpf Urine Bacteria None seen /hpf Urine Casts 6-10 Salicylates (2-20) mg/dL Urine Opiates Screen Negative (Negative) Urine Methadone Screen Negative (Negative) Acetaminophen (10-30) ug/mL Ur Barbiturates Screen Negative (Negative) Ur Phencyclidine Scrn Negative (Negative) Ur Amphetamine Screen Negative (Negative) U Benzodiazepines Scrn Negative (Negative) Urine Cocaine Screen Negative (Negative) U Cannabinoids Screen Negative (Negative) Ethyl Alcohol (<10) mg/dL Hep Bs Antigen (Negative) Hep Bs Antibody Influenza A (RT-PCR) (Negative) Influenza B (RT-PCR) (Negative) RSV (RT-PCR) (Negative) SARS-CoV-2 RNA (RT-PCR) (Negative) 06/27/24 06/28/24 06/28/24 Range/Units 20:19 05:34 05:35 WBC 8.0 (4.5-10.0) K/mm3 RBC 3.59 L (4.2-5.4) M/mm3 Hgb 11.7 L (12.0-15.0) g/dL Hct 35.7 L (37.0-47.0) % MCV 99.4 (80-100) fl MCH 32.6 (26-34) pg MCHC 32.8 (32-36) g/dl RDW 17.8 H (11.5-14.5) % Plt Count 237 (150-375) k/mm3 MPV 11.1 H (7.4-10.4) fl Immature Gran % (Auto) 0.3 Neut % (Auto) 77.1 H Lymph % (Auto) 13.1 L [place] % (Auto) 9.1 H Eos % (Auto) 0.1 Baso % (Auto) 0.3 Lymph # (Auto) 1.05 [place] # (Auto) 0.7 H Eos # (Auto) 0.0 Baso # (Auto) 0.0 Abs Immat Gran (auto) 0.02 Absolute Neuts (auto) 6.2 Absolute Nucleated RBC 0.000 Total Counted Neutrophils % (Manual) (46-73) % Band Neutrophils % (0-6) % Lymphocytes % (Manual) (18-44) % Monocytes % (Manual) (3-9) % Nucleated RBC % 0.0 Abs Neuts (Manual) (1.7-7.2) K/mm3 Abs Lymphs (Manual) (1.1-4.5) K/mm3 Abs Monocytes (Manual) (0.1-0.90) K/mm3 Platelet Estimate (Adequate) Hypochromasia Anisocytosis Schistocytes PT (11.1-14.7) Seconds INR APTT (22.3-36.8) Seconds Sodium 141 (137-145) mmol/L Potassium 4.9 (3.4-5.0) mmol/L Chloride 105 (98-107) mmol/L Carbon Dioxide 24 (22-30) mmol/L Anion Gap 12 (4-12) mmol/L BUN 68 H (7-17) mg/dL Creatinine 6.57 H (0.7-1.0) mg/dL Estim Creat Clear Calc Not Reportable Estimated GFR 8 L (59 - ) Glucose 139 H (65-110) mg/dL POC Capillary Glucose (65-105) mg/dl Lactic Acid (0.7-2.0) mmol/L Calcium 9.0 (8.4-10.2) mg/dL Phosphorus 4.8 H (2.5-4.5) mg/dL Magnesium 1.6 (1.6-2.3) mg/dL Total Bilirubin 0.4 (0.2-1.3) mg/dL AST 26 (14-36) U/L ALT 20 (6-35) U/L Alkaline Phosphatase 73 (38-126) U/L Ammonia 13 Total Creatine Kinase (30-135) U/L Troponin I (0.000-0.034) ng/mL Total Protein 7.0 (6.3-8.2) g/dL Albumin 3.6 (3.5-5.1) g/dL Vitamin B12 572.0 (239-931) pg/mL Folate 8.4 (2.76->20) ng/mL TSH (0.465-4.680) uIU/mL TSH (Reflex) 1.030 (0.465-4.68) uIU/mL Urine Color (Yellow) Urine Appearance (Clear) Urine pH (5.0-9.0) Ur Specific [place] (1.001-1.035) Urine Protein (Negative) mg/dL Urine Glucose (UA) (Negative) mg/dL Urine Ketones (Negative) mg/dL Ur Blood (Man) (Negative) Urine Nitrate (Negative) Urine Bilirubin (Negative) Urine Urobilinogen (<2.0) mg/dL Add Ur Microanalysis Leukocyte Esterase Rfl (Negative) RENEE/UL Urine RBC (0-2) /hpf Urine WBC (0-3) /hpf Ur Squamous Epith Cells (Few) /hpf Urine Bacteria /hpf Urine Casts Salicylates (2-20) mg/dL Urine Opiates Screen (Negative) Urine Methadone Screen (Negative) Acetaminophen (10-30) ug/mL Ur Barbiturates Screen (Negative) Ur Phencyclidine Scrn (Negative) Ur Amphetamine Screen (Negative) U Benzodiazepines Scrn (Negative) Urine Cocaine Screen (Negative) U Cannabinoids Screen (Negative) Ethyl Alcohol (<10) mg/dL Hep Bs Antigen Negative (Negative) Hep Bs Antibody Positive Influenza A (RT-PCR) Negative (Negative) Influenza B (RT-PCR) Negative (Negative) RSV (RT-PCR) Negative (Negative) SARS-CoV-2 RNA (RT-PCR) Negative (Negative) <Spike A. Torossian, MD - Last Filed: 06/28/24 22:47> ECG Data EKG #1: ECG completion date: 06/27/24 <Saad Cobos PA-C - Last Filed: 06/28/24 01:02> ECG completion time: 17:20 <Saad Cobos PA-C - Last Filed: 06/28/24 01:02> Prior ECG tracings: available for review <Saad Cobos PA-C - Last Filed: 06/28/24 01:02> Interpretation: Sinus rhythm Rate 88 Normal QRS Normal QTC No STEMI <Saad Cobos PA-C - Last Filed: 06/28/24 01:02> Discharge Plan Discharge Clinical Impression: AMS (altered mental status) Qualifiers: Altered mental status type: unspecified Qualified Code(s): R41.82 - Altered mental status, unspecified <Saad Cobos PA-C - Last Filed: 06/28/24 01:02> Patient Disposition: Still a Patient <Saad Cobos PA-C - Last Filed: 06/28/24 01:02> Condition: Stable <Saad Cobos PA-C - Last Filed: 06/28/24 01:02>
[2024-06-27 17:23] VITALS: BP 165/73; PULSE 85; RESP 18; TEMP 36.7; O2SAT 99
[2024-06-27 17:38] LABS: Hematocrit 39.1 % (37.0-47.0); Hemoglobin 12.5 g/dL (12.0-15.0); Mean Corpuscular Hemoglobin 32.2 pg (26-34); Mean Corpuscular Volume 100.8 fl (80-100); Mean Platelet Volume 11.4 fl (7.4-10.4); Platelet Count Result 269 k/mm3 (150-375); Red Blood Count 3.88 M/mm3 (4.2-5.4); Red Cell Distribution Width 17.6 % (11.5-14.5); White Blood Count 9.6 K/mm3 (4.5-10.0)
[2024-06-27 17:49] LABS: INR 1.1; Prothrombin Time 14.7 Seconds (11.1-14.7)
[2024-06-27 17:50] LABS: Partial Thromboplastin Time 27.9 Seconds (22.3-36.8)
[2024-06-27 17:52] LABS: Lactic Acid Reflex 1.6 mmol/L (0.7-2.0)
[2024-06-27 17:54] LABS: Alanine Aminotransferase 23 U/L (6-35); Albumin Level 4.1 g/dL (3.5-5.1); Alkaline Phosphatase 77 U/L (38-126); Anion Gap 11 mmol/L (4-12); Aspartate Amino Transferase 29 U/L (14-36); Bilirubin,Total 0.5 mg/dL (0.2-1.3); Blood Urea Nitrogen 67 mg/dL (7-17); Calcium 9.3 mg/dL (8.4-10.2); Carbon Dioxide 25 mmol/L (22-30); Chloride 106 mmol/L (98-107); Creatine Kinase 35 U/L (30-135); Estimated Glomerular Filt Rate 9; Glucose 139 mg/dL (65-110); Potassium 5.7 mmol/L (3.4-5.0); Sodium 142 mmol/L (137-145)
[2024-06-27 18:06] LABS: Troponin I < 0.012 ng/mL (0.000-0.034)
[2024-06-27 18:15] LABS: Band Neutrophils Percent 2 % (0-6); Lymphocytes Absolute Manual 0.38 K/mm3 (1.1-4.5); Monocytes Absolute Manual 0.76 K/mm3 (0.1-0.90); Monocytes Percent Manual 8 % (3-9); Neutrophils Absolute Manual 8.44 K/mm3 (1.7-7.2); Neutrophils Percent Manual 86 % (46-73); Platelet Estimate Adequate (Adequate); Schistocytes None Seen; Total Cells Counted 100
[2024-06-27 18:16] LABS: Anisocytosis 2+; Hypochromasia 1+
[2024-06-27 19:02] LABS: Acetaminophen < 10 ug/mL (10-30); Ethanol < 10 mg/dL (<10); Salicylate < 1.0 mg/dL (2-20)
[2024-06-27 19:18] LABS: Magnesium 1.6 mg/dL (1.6-2.3); Phosphorus 3.7 mg/dL (2.5-4.5)
[2024-06-27 19:27] LABS: Ammonia 11 umol/L (9-30)
[2024-06-27 19:51] LABS: Amphetamine Screen Urine Negative (Negative); Barbiturate Screen Urine Negative (Negative); Benzodiazepines Screen Urine Negative (Negative); Cannabinoid Screen Urine Negative (Negative); Cocaine Screen Urine Negative (Negative); Methadone Screen Urine Negative (Negative); Opiate Screen Urine Negative (Negative); Phencyclidine Screen Urine Negative (Negative)
[2024-06-27 20:28] LABS: Add Urine Microscopic? YES; Appearance Urine Clear (Clear); Bacteria Urine None Seen /hpf; Bilirubin Urine Negative (Negative); Blood Urine Negative (Negative); Color Urine Yellow (Yellow); Glucose Urine UA 1+ mg/dL (Negative); Ketones Urine Negative (Negative); Leukocyte Esterase Ur Negative LEU/UL (Negative); Need Manual Microscopic Reviewed; Nitrate Urine Negative (Negative); Protein Urine 3+ mg/dL (Negative); RBC Urine 0-2 /hpf (0-2); Specific Grav Ur 1.016 (1.001-1.035); Squamous Epithelial Cell Urine None Seen /hpf (Few); Urobilinogen Urine 0.2 mg/dL (<2.0); WBC Urine 0-5 /hpf (0-3); pH Urine 5.5 (5.0-9.0)
[2024-06-27] MEDS: SODIUM ZIRCONIUM CYCLOSILICATE 10 GM POWD.PACK PO (20:42)
[2024-06-27 20:43] VITALS: BP 170/80; PULSE 93; RESP 21; O2SAT 99
[2024-06-27 20:58] LABS: Influenza A QL RT-PCR Negative (Negative); Influenza B QL RT-PCR Negative (Negative); RSV RNA, RT-PCR Negative (Negative); SARS-CoV-2 RNA PCR Negative (Negative)
[2024-06-27 22:44] VITALS: BP 152/62; PULSE 78; RESP 16; O2SAT 97
[2024-06-28] VITALS (27 sets, daily range): BP systolic 85–191; BP diastolic 46–89; PULSE 67–949; RESP 12–20; TEMP 36–37.1; O2SAT 93–100
--- NOTE | 2024-06-28 | ECHO_ITS ---
Patient Info Name: Barbara Chakraborty Age: 73 years : 1950 Gender: Female Ht: 62 in Wt: 132 lbs BSA: 1.63 m2 HR: 68 bpm BP: 141 / 80 mmHg Technical Quality: Poor Exam Date: 06/28/2024 5:36 PM Exam Location: Echo Lab Patient Status: Inpatient Admit Date: 06/28/2024 Staff Ordering Physician: Vanessa Godfrey MD Cancer Program Director: Ephraim Springer RDCS Attending Provider: Tahmina Owens DO Exam Type: CA echo dop color flow w con Study Info Indications - ?STROKE - AMS Complete two-dimensional, color flow and Doppler transthoracic echocardiogram is performed with contrast to opacify the left ventricle and to improve the deliniation of the left ventricle endocardial borders. Contrast/Agitated Saline Contrast/Ag. Saline: Definity Amount: 2.00 ml Existing IV Access: Yes Reason for Poor Study: poor echocardiographic windows Summary 1. Left ventricular chamber dimension is normal. 2. Left ventricular systolic function is normal, estimated at 65-70%. 3. There is moderately increased left ventricular wall thickness. 4. The left ventricular diastolic function is grade I diastolic dysfunction. 5. Right ventricular systolic function is normal. 6. No significant valvular disease. Left Ventricle Left ventricular chamber dimension is normal. Left ventricular systolic function is normal, estimated at 65-70%. There is moderately increased left ventricular wall thickness. The left ventricular diastolic function is grade I diastolic dysfunction. Right Ventricle Right ventricular chamber dimension is normal. Right ventricular systolic function is normal. Left Atria Left atrial chamber dimension is normal. Right Atria Right atrial chamber dimension is normal. Atrial Septum Intact interatrial septum visualized by color flow imaging. Aortic Valve The aortic valve is probable trileaflet. There is mild aortic valve sclerosis. There is no aortic valve stenosis. There is trace aortic valve regurgitation. Pulmonic Valve The pulmonic valve is not well visualized. There is trace pulmonic regurgitation. Mitral Valve There is trace mitral valve regurgitation. Tricuspid Valve There is trace tricuspid valve regurgitation. Pericardium/Pleural There is no pericardial effusion. Inferior Vena Cava Normal inferior vena cava with >50% collapse upon inspiration consistent with normal right atrial pressure, 3 mmHg. Aorta The aortic root size at the sinus of Valsalva is normal. Left Ventricular Outflow Tract Name Value Normal LVOT 2D LVOT Diameter 1.67 cm LVOT Doppler LVOT Peak Gradient 4 mmHg LVOT Mean Gradient 2 mmHg LVOT VTI 21.27 cm LVOT VTI/AV VTI Ratio 0.61 LVOT Stroke Volume 46.37 ml Pulmonic Valve Name Value Normal RVOT Doppler RVOT Peak Gradient 7 mmHg PV Doppler PV Peak Gradient 8 mmHg PV Regurgitation Doppler NE Peak End Diastolic Velocity 66.48 cm/s Mitral Valve Name Value Normal MV Doppler MV Peak Gradient 6 mmHg MV Mean Gradient 3 mmHg MV Decel [place] 435.22 cm/s2 MV PHT 0 s MV Area (PHT) 5.03 cm2 4.00-5.00 MV Area (Cont Eq VTI) 1.39 cm2 MV Diastolic Function MV E Peak Velocity 65.58 cm/s MV A Peak Velocity 93.29 cm/s MV E/A 0.70 MV Decel Time 0 s Tricuspid Valve Name Value Normal TV Regurgitation Doppler TR Peak Velocity 237.10 cm/s TR Peak Gradient 22 mmHg Estimated PAP/RSVP RA Pressure 3 mmHg <=5 PA Systolic Pressure 25 mmHg <36 RV Systolic Pressure 25 mmHg <36 Aorta Name Value Normal Ascending Aorta Ao Root Diameter (MM) 2.39 cm Ao Root Diam Index (MM) 1.47 cm/m2 Aortic Valve Name Value Normal AV Doppler AV Peak Velocity 142.72 cm/s AV Peak Gradient 8 mmHg AV Mean Gradient 5 mmHg AV VTI 35.06 cm AV Area (Cont Eq VTI) 1.32 cm2 >=3.00 AV Area (Cont Eq Lalit) 1.45 cm2 AV Regurgitation 2D LVOT Area 2.18 cm2 Ventricles Name Value Normal LV Dimensions 2D/MM IVS Diastolic Thickness (2D) 1.38 cm 0.60-1.00 LVID Diastole (2D) 2.97 cm 3.80-5.20 LVIW Diastolic Thickness (2D) 1.63 cm 0.60-0.90 LVID Systole (2D) 1.86 cm 2.20-3.50 LVOT Diameter 1.67 cm LV Mass (2D Cubed) 156.07 g 67.00-162.00 LV Mass Index (2D Cubed) 0.01 g/cm2 0.00-0.01 Relative Wall Thickness (2D) 1.10 LV Fractional Shortening/Ejection Fraction 2D/MM LV Fractional Shortening (2D) 37 % 27-45 LV EF (2D Teicholz) 68 % 54-74 LV Diastolic Volume (4C MOD) 42.98 ml LV EF (4C MOD) 71 % LV Diastolic Volume (2C MOD) 31.29 ml LV EF (2C MOD) 71 % LV Diastolic Volume (BP MOD) 37.64 ml 46.00-106.00 LV Diastolic Volume Index (BP MOD) 0.02 l/m2 0.03-0.06 LV Systolic Volume (BP MOD) 10.49 ml 14.00-42.00 LV Systolic Volume Index (BP MOD) 0.01 l/m2 0.01-0.02 LV EF (BP MOD) 72 % 54-74 LV Diastolic Length (4C) 6.29 cm LV Systolic Length (4C) 4.67 cm LV Stroke Volume (4C MOD) 30.62 ml Atria Name Value Normal LA Dimensions LA Dimension (MM) 3.45 cm 2.70-3.80 LA Volume (4C A-L) 48.13 ml LA Volume (BP A-L) 41.94 ml RA Dimensions RA Area (4C) 13.69 cm2 <=18.00 Report Signatures
[2024-06-28] MEDS: SODIUM CHLORIDE 0.9% IV 1,000 ML 100 ML IV CONT (05:27)
[2024-06-28 05:43] LABS: Basophils Percent Auto 0.3 % (0.2-1.2); Eosinophils Percent Auto 0.1 % (0-4.4); Hematocrit 35.7 % (37.0-47.0); Hemoglobin 11.7 g/dL (12.0-15.0); Immature Granulocyte Absolute 0.02 K/mm3 (0.00-0.031); Immature Granulocyte Percent A 0.3 % (0-0.5); Lymphocytes Absolute Auto 1.05 K/mm3 (0.9-3.2); Lymphocytes Percent Auto 13.1 % (18.3-44.2); Mean Corpuscular HGB Conc 32.8 g/dl (32-36); Mean Corpuscular Hemoglobin 32.6 pg (26-34); Mean Corpuscular Volume 99.4 fl (80-100); Mean Platelet Volume 11.1 fl (7.4-10.4); Monocytes Absolute Auto 0.7 K/mm3 (0.1-0.6); Monocytes Percent Auto 9.1 % (2.6-8.5); Neutrophils Absolute Auto 6.2 K/mm3 (1.3-6.7); Neutrophils Percent Auto 77.1 % (45.5-73.1); Platelet Count Result 237 k/mm3 (150-375); Red Blood Count 3.59 M/mm3 (4.2-5.4); Red Cell Distribution Width 17.8 % (11.5-14.5)
[2024-06-28 06:02] LABS: Alanine Aminotransferase 20 U/L (6-35); Albumin Level 3.6 g/dL (3.5-5.1); Alkaline Phosphatase 73 U/L (38-126); Ammonia 13 umol/L (9-30); Anion Gap 12 mmol/L (4-12); Aspartate Amino Transferase 26 U/L (14-36); Bilirubin,Total 0.4 mg/dL (0.2-1.3); Blood Urea Nitrogen 68 mg/dL (7-17); Carbon Dioxide 24 mmol/L (22-30); Chloride 105 mmol/L (98-107); Estimated Glomerular Filt Rate 8; Glucose 139 mg/dL (65-110); Magnesium 1.6 mg/dL (1.6-2.3); Phosphorus 4.8 mg/dL (2.5-4.5); Potassium 4.9 mmol/L (3.4-5.0); Sodium 141 mmol/L (137-145)
--- NOTE | 2024-06-28 06:57 | PC.NURSE ---
Patient's daughter calls and states she would like to have the dialysis nurse know that the patient's dialysis lines are backwards.
[2024-06-28 07:14] LABS: Hepatitis B Surface Antigen Negative (Negative)
[2024-06-28 07:35] LABS: Hepatitis B Surface Anti Res Positive
--- NOTE | 2024-06-28 13:39 | P.HP_ITS ---
H&P: HPI History of Present Illness Date/Time: 06/28/24 13:39 Chief Complaint: Altered mental status Narrative: 73-year-old female with PMH of insulin-dependent diabetes, schizophrenia, dementia, CHF, ESRD on dialysis who presented to the ER on account of AMS. Patient was confused at bedside and unable to provide history. PER eR note, family noted that patient was not acting herself, noted patient has been staring off in space and not talking to anyone which is not her baseline. ER eval noted Temp 98, NM 85, RR 18, O2sats 99 on rooom air, BP 165/73. labs notable for WBC 8.0, Cr 6.57, K 5.7 repeat 4.9, UA unremarkable, CT head and Abd/pelvis and Chest unremarkable. patient admitted for further eval and care patient having resting tremor on exam Review of Systems Review of Systems: all the systems were reviewed and negative except as noted in history of will further [facility] Past Medical History Medical History (Updated 12/21/22 @ 00:00 by Rebeca Nagy) Heart failure with preserved ejection fraction Insulin dependent diabetes mellitus Chronic kidney disease, stage 4 (severe) Creatinine ranges from 1.9 to 2.20. Venous thrombosis Anemia Hyperkalemia Dementia COVID (06/2021) Schizophrenia Diabetic neuropathy Surgical History Surgical History (Updated 04/19/22 @ 22:04 by Cassandra Rodriguez PA-C) History of cataract extraction with lens replacement History of section Right great toe amputee Family History Family History Mother Diabetes mellitus Acute myocardial infarction Father Heart attack Cancer Sibling Diabetes mellitus Acute myocardial infarction Social History Social History (Updated 04/19/22 @ 22:06 by Cassandra Rodriguez PA-C) Social History: The patient lives with her daughter and grand son in [place]. Lifelong nonsmoker. No alcohol or illicit substance abuse. She designates her daughter, Candelaria Gayle, as her surrogate decision maker. Code status: Full code. Smoking status: Never smoker Alcohol intake: former Substance use: never Do You Feel Safe in your Home?: No Lack of Transportation: No Lack of Food: Never True Current Housing: I Have Housing Concerned About Future Housing: No Difficulty Paying Gas/Electric Bills: No Difficulty Paying for Meds: No Currently Unemployed: No Education: Decline to Answer Difficulty w/ Childcare or Family Care: No Living arrangements: with family Spiritual care concerns: No Meds Home Medications and Allergies Home Medications ?Medication ?Instructions ?Recorded ?Confirmed ?Type atorvastatin 40 mg tablet 20 mg PO HS 06/23/21 06/28/24 History pregabalin 150 mg capsule 150 mg PO .COMPLEX 06/23/21 06/28/24 History acetaminophen 325 mg tablet 650 mg PO Q6H PRN Pain 09/19/21 06/28/24 History ferrous sulfate 325 mg (65 mg 325 mg PO DAILY 09/19/21 06/28/24 History iron) tablet insulin glargine 100 unit/mL (3 18 unit subcut HS 09/19/21 06/28/24 History mL) subcutaneous pen (Lantus Solostar U-100 Insulin) insulin lispro 100 unit/mL 1 - 4 sliding scale dose subcut 09/19/21 06/28/24 History subcutaneous pen USEASDIRECTD lidocaine 5 % topical patch 2 patch topical DAILY PRN Back Pain 09/19/21 06/28/24 History multivitamin 1 tablet PO DAILY 09/19/21 06/28/24 History carvedilol 3.125 mg tablet (Coreg) 3.125 mg PO Q12HR #60 tabs 09/23/21 06/28/24 Rx risperidone 2 mg tablet 2 mg PO HS #30 tabs 09/23/21 06/28/24 Rx albuterol sulfate 90 mcg/actuation 2 inh inhalation Q4H PRN Shortness 11/04/21 06/28/24 History aerosol inhaler Of Breath Or Wheezing apixaban 5 mg tablet (Eliquis) 5 mg PO Q12HR #60 tabs 11/14/21 06/28/24 Rx benzonatate 100 mg capsule 100 mg PO Q8HR PRN Cough #30 caps 11/14/21 06/28/24 Rx aspirin 81 mg chewable tablet 81 mg PO DAILY 06/28/24 06/28/24 History benztropine 2 mg tablet 2 mg PO HS 06/28/24 06/28/24 History calcium phosphate,dibasic 77 1 tablet PO WEEKLY 06/28/24 06/28/24 History mg-vitamin D3 400 unit tablet hydralazine 25 mg tablet 25 mg PO .q12 06/28/24 06/28/24 History nifedipine 60 mg tablet,extended 60 mg PO HS 06/28/24 06/28/24 History release pantoprazole 40 mg tablet,delayed 40 mg PO Q12H 06/28/24 06/28/24 History release tramadol 25 mg tablet 25 mg PO Q6H PRN pain 06/28/24 06/28/24 History Allergies Allergy/AdvReac Type Severity Reaction Status Date / Time No Known Allergies Allergy Verified 06/28/24 09:12 Vital Signs Vital Signs - 24 hr 06/27/24 17:23 06/27/24 20:43 06/27/24 22:44 Temperature 98.0 F Pulse Rate 85 93 78 Respiratory Rate 18 21 H 16 Blood Pressure 165/73 H 170/80 H 152/62 H Pulse Oximetry 99 99 97 Oxygen Delivery 06/28/24 04:15 06/28/24 07:19 06/28/24 08:00 Temperature Pulse Rate 79 70 Respiratory Rate 15 14 Blood Pressure 158/60 H 191/64 H Pulse Oximetry 97 97 97 Oxygen Delivery Room Air 06/28/24 13:02 Temperature Pulse Rate 68 Respiratory Rate 18 Blood Pressure 141/80 H Pulse Oximetry 98 Oxygen Delivery Exam Narrative: GENERAL APPEARANCE alert with delayed response and oriented x2 HEAD/NECK normocephalic atraumatic, no facial trauma, neck is supple. RESPIRATORY respiratory effort normal, speaks in full sentences, no tripod position, no accessory muscle use. Lungs clear to auscultation without rhonchi, wheezes, rales CARDIAC Regular rate and rhythm, no edema. ABDOMINAL Soft, ND/NT. No evidence of fluid wave. No pulsatile masses on exam, rebound tenderness, Armendariz sign or pain over Mcburney's point. MUSCLES/EXTREMITIES No abnormal range of motion, no swelling. SKIN Warm, pink and dry. No rashes, dermatoses, petechiae or lesions. NEUROLOGICAL Speech is clear and appropriate. Normal level of consciousness. Gait and coordination are normal. 5/5 strength in all extremities. resting tremors H&P: Results Labs Labs: Short CBC 06/27/24 06/28/24 Range/Units 17:31 05:35 WBC 9.6 8.0 (4.5-10.0) K/mm3 Hgb 12.5 11.7 L (12.0-15.0) g/dL Hct 39.1 35.7 L (37.0-47.0) % Plt Count 269 237 (150-375) k/mm3 BMP 06/27/24 06/28/24 17:31 05:35 Sodium 142 141 Potassium 5.7 H 4.9 Chloride 106 105 Carbon Dioxide 25 24 BUN 67 H 68 H Creatinine 5.87 H 6.57 H Glucose 139 H 139 H Calcium 9.3 9.0 Cardiac Enzymes 06/27/24 Range/Units 17:31 Total Creatine Kinase 35 (30-135) U/L Troponin I < 0.012 (0.000-0.034) ng/mL Liver Function 06/27/24 06/28/24 Range/Units 17:31 05:35 Total Bilirubin 0.5 0.4 (0.2-1.3) mg/dL AST 29 26 (14-36) U/L ALT 23 20 (6-35) U/L Alkaline Phosphatase 77 73 (38-126) U/L Albumin 4.1 3.6 (3.5-5.1) g/dL Urine 06/27/24 Range/Units 19:28 Urine Color Yellow (Yellow) Urine Appearance Clear (Clear) Urine pH 5.5 (5.0-9.0) Ur Specific [place] 1.016 (1.001-1.035) Urine Protein 3+ H (Negative) mg/dL Urine Glucose (UA) 1+ H (Negative) mg/dL Assessment and Plan Assessment and plan (1) Altered mental status: Qualifiers: Altered mental status type: unspecified Qualified Code(s): R41.82 - Altered mental status, unspecified Code(s): R41.82 - Altered mental status, unspecified Status: Acute Plan AMS R/o Stroke, Seizure, worsening Dementia and Parkinson's disease Patient presented with AMS, has resting tremor at baseline CT head, CT AP & chest unremarkable, UA unremarkable MRI brain, EEG, ECHO, b12/folate Contineu Aspirin, Lipitor and Eliquis start Keppra pending Neuro eval neurology consulted PT/OT DM2 SSi with accucheks and adjust with clinical course Schizophrenia continue home meds CHF titrate home meds with clinical course ESRD on dialysis Nephrology consulted DVT prophylaxis on Eliquis Full code, reassess reassess for surrogate decision maker Hospitalist [facility] Advance Care Plan I have confirmed that the patient's Advanced Care Plan is present, code status is documented, or surrogate decision maker is listed in patient medical record.: Yes Medication Reconciliation I have utilized all available resources to obtain, update and review the patients current medications (includes all prescriptions, OTC, herbals, cannabis, and nutritional supplements).: Yes
--- NOTE | 2024-06-28 13:50 | ECG_ITS ---
Test Date: 2024-06-28 16:03:41 Measurements Intervals [place] Rate: 71 P: 75 [place]: 151 QRS: 13 QRSD: 69 T: 64 QT: 397 QTc: 434 Interpretive Statements SINUS RHYTHM Compared to ECG 06/27/2024 17:20:35 T-wave abnormality no longer present Electronically Signed On 06-30-2024 08:48:28 REGISTERED NURSE [employer]OW [employer]ANSPLANT by Marco Anderson M.D.
--- NOTE | 2024-06-28 14:01 | WPDNEURCNPN ---
Assessment and Plan Assessment and plan (1) Tremor of both hands: Code(s): R25.1 - Tremor, unspecified Status: Acute (2) Insulin dependent diabetes mellitus: Status: Chronic (3) Chronic kidney disease, stage 4 (severe): Code(s): N18.4 - Chronic kidney disease, stage 4 (severe) Status: Chronic (4) Dementia: Code(s): F03.90 - Unspecified dementia, unspecified severity, without behavioral disturbance, psychotic disturbance, mood disturbance, and anxiety Status: Acute (5) Schizophrenia: Qualifiers: Schizophrenia type: unspecified Qualified Code(s): F20.9 - Schizophrenia, unspecified Code(s): F20.9 - Schizophrenia, unspecified Status: Acute Plan 1. Encephalopathy 2. Movement Disorder 3. Ongoing dementia 4. CTA negative with no involvement of the large Vessels. Will obtain the MRI of the brain Because of the movement disorder before any treatment is started. Consult date: 06/28/24 HPI: Barbara Chakraborty is a 73 year old female Admitted to the hospital through the emergency room for the complaint of change in mental status, family members reportedly called EMS when they noted the patient was not acting her normal self. Her daughter who is POA reported that she is normally more talkative ,will do more than just sitting around in the chair which is what she is doing on the day of this particular admission. She has been just staring off into space and not talking to anyone ,she has had multiple episodes of diarrhea over the last couple of days, she has right central dialysis line in place and is currently in training to do home dialysis. Though she was due for dialysis today and missed on Thursday as well, she has been receiving multiple medications which include atorvastatin 40mg at night ,pregabalin 150mg at night, dulaglutide 1.5mg subQ weekly , insulin 34units subQ HS with sliding scale insulin as well and insulin lispro 20units subQ 3 times a day with meals, furosemide 20mg b.i.d. she is not allergic to any medications. And past history is consistent with insulin-dependent diabetes mellitus, chronic renal disease stage IV, dementia, schizophrenia, at present her designated surrogate decision maker is her daughter and she carries the full code status. Evaluation upon clinical includes the CBC which revealed hemoglobin 11.7 INR of 1.1. APTT 27.9, BUN is 68 with creatinine of 6.57 an estimated GF are only 8, psychologist screen is negative, is positive for the hepatitis B antibody and negative for influenza A he be RSV and [id number], stat x-ray negative, CT scan of the head negative, head and neck CTA is negative. She is a former alcohol intake, never smoker, her initial evaluation revealed her to have normal vital signs blood pressure 165/73 and initial exam in the emergency room was documented as delayed responses oriented x2, generally nonfocal exam, normal CBC abnormal BNP normal hepatic enzymes abnormal UA. Review of Systems Review of Systems: All systems reviewed & are unremarkable except as noted in HPI and below PMFSH Past Medical History Medical History Heart failure with preserved ejection fraction Insulin dependent diabetes mellitus Chronic kidney disease, stage 4 (severe) Creatinine ranges from 1.9 to 2.20. Venous thrombosis Anemia Hyperkalemia Dementia COVID (06/2021) Schizophrenia Diabetic neuropathy Surgical History Surgical History History of cataract extraction with lens replacement History of section Right great toe amputee Family History Family History Mother Diabetes mellitus Acute myocardial infarction Father Heart attack Cancer Sibling Diabetes mellitus Acute myocardial infarction Social History Social History Social History: The patient lives with her daughter and grand son in [place]. Lifelong nonsmoker. No alcohol or illicit substance abuse. She designates her daughter, Candelaria Gayle, as her surrogate decision maker. Code status: Full code. Smoking status: Never smoker Alcohol intake: former Substance use: never Do You Feel Safe in your Home?: No Lack of Transportation: No Lack of Food: Never True Current Housing: I Have Housing Concerned About Future Housing: No Difficulty Paying Gas/Electric Bills: No Difficulty Paying for Meds: No Currently Unemployed: No Education: Decline to Answer Difficulty w/ Childcare or Family Care: No Living arrangements: with family Spiritual care concerns: No Meds Home Medications and Allergies Home Medications ?Medication ?Instructions ?Recorded ?Confirmed ?Type atorvastatin 40 mg tablet 20 mg PO HS 06/23/21 06/28/24 History pregabalin 150 mg capsule 150 mg PO .COMPLEX 06/23/21 06/28/24 History acetaminophen 325 mg tablet 650 mg PO Q6H PRN Pain 09/19/21 06/28/24 History ferrous sulfate 325 mg (65 mg 325 mg PO DAILY 09/19/21 06/28/24 History iron) tablet insulin glargine 100 unit/mL (3 18 unit subcut HS 09/19/21 06/28/24 History mL) subcutaneous pen (Lantus Solostar U-100 Insulin) insulin lispro 100 unit/mL 1 - 4 sliding scale dose subcut 09/19/21 06/28/24 History subcutaneous pen USEASDIRECTD lidocaine 5 % topical patch 2 patch topical DAILY PRN Back Pain 09/19/21 06/28/24 History multivitamin 1 tablet PO DAILY 09/19/21 06/28/24 History carvedilol 3.125 mg tablet (Coreg) 3.125 mg PO Q12HR #60 tabs 09/23/21 06/28/24 Rx risperidone 2 mg tablet 2 mg PO HS #30 tabs 09/23/21 06/28/24 Rx albuterol sulfate 90 mcg/actuation 2 inh inhalation Q4H PRN Shortness 11/04/21 06/28/24 History aerosol inhaler Of Breath Or Wheezing apixaban 5 mg tablet (Eliquis) 5 mg PO Q12HR #60 tabs 11/14/21 06/28/24 Rx benzonatate 100 mg capsule 100 mg PO Q8HR PRN Cough #30 caps 11/14/21 06/28/24 Rx aspirin 81 mg chewable tablet 81 mg PO DAILY 06/28/24 06/28/24 History benztropine 2 mg tablet 2 mg PO HS 06/28/24 06/28/24 History calcium phosphate,dibasic 77 1 tablet PO WEEKLY 06/28/24 06/28/24 History mg-vitamin D3 400 unit tablet hydralazine 25 mg tablet 25 mg PO .q12 06/28/24 06/28/24 History nifedipine 60 mg tablet,extended 60 mg PO HS 06/28/24 06/28/24 History release pantoprazole 40 mg tablet,delayed 40 mg PO Q12H 06/28/24 06/28/24 History release tramadol 25 mg tablet 25 mg PO Q6H PRN pain 06/28/24 06/28/24 History Allergies Allergy/AdvReac Type Severity Reaction Status Date / Time No Known Allergies Allergy Verified 06/28/24 09:12 Vital Signs Vital Signs - 24 hr 06/27/24 17:23 06/27/24 20:43 06/27/24 22:44 Temperature 36.7 C Pulse Rate 85 93 78 Respiratory Rate 18 21 H 16 Blood Pressure 165/73 H 170/80 H 152/62 H Pulse Oximetry 99 99 97 Oxygen Delivery 06/28/24 04:15 06/28/24 07:19 06/28/24 08:00 Temperature Pulse Rate 79 70 Respiratory Rate 15 14 Blood Pressure 158/60 H 191/64 H Pulse Oximetry 97 97 97 Oxygen Delivery Room Air 06/28/24 13:02 06/28/24 13:54 Temperature Pulse Rate 68 68 Respiratory Rate 18 12 Blood Pressure 141/80 H 141/80 H Pulse Oximetry 98 97 Oxygen Delivery Exam Narrative: On examination today she is awake alert cooperative in no obvious acute distress, she has resting tremors of both upper and lower extremities more so on the left lower extremity, head normocephalic with no cranial bruit ear nose throat examination normal neck is supple with no cervical bruit no thyromegaly no lymphadenopathy, heart regular with no murmur, lungs clear to auscultation with no rhonchi or crepitation, abdomen is soft nontender normal bowel sounds, neurologically she is awake alert she is able to relate to the physician with good eye contact and she mentioned to me that she has tremors for a long duration was around regular feels the vision full extraocular movements full face symmetrical tongue midline motor examination revealed her to have decreased strength 4/5 in upper and lower extremities with resting tremors plantars are downgoing no evidence of gross cerebellar deficit though she has difficulties in performing so Results Labs 06/28/24 05:35 06/28/24 05:35 Labs: Short CBC 06/27/24 06/28/24 Range/Units 17:31 05:35 WBC 9.6 8.0 (4.5-10.0) K/mm3 Hgb 12.5 11.7 L (12.0-15.0) g/dL Hct 39.1 35.7 L (37.0-47.0) % Plt Count 269 237 (150-375) k/mm3 BMP 06/27/24 06/28/24 17:31 05:35 Sodium 142 141 Potassium 5.7 H 4.9 Chloride 106 105 Carbon Dioxide 25 24 BUN 67 H 68 H Creatinine 5.87 H 6.57 H Glucose 139 H 139 H Calcium 9.3 9.0 Cardiac Enzymes 06/27/24 Range/Units 17:31 Total Creatine Kinase 35 (30-135) U/L Troponin I < 0.012 (0.000-0.034) ng/mL Liver Function 06/27/24 06/28/24 Range/Units 17:31 05:35 Total Bilirubin 0.5 0.4 (0.2-1.3) mg/dL AST 29 26 (14-36) U/L ALT 23 20 (6-35) U/L Alkaline Phosphatase 77 73 (38-126) U/L Albumin 4.1 3.6 (3.5-5.1) g/dL Urine 06/27/24 Range/Units 19:28 Urine Color Yellow (Yellow) Urine Appearance Clear (Clear) Urine pH 5.5 (5.0-9.0) Ur Specific [place] 1.016 (1.001-1.035) Urine Protein 3+ H (Negative) mg/dL Urine Glucose (UA) 1+ H (Negative) mg/dL
--- NOTE | 2024-06-28 14:23 | PC.NURSE ---
This patient, Barbara Chakraborty, was admitted to 3 [facility] Surg Room 306-01 on 06/28/24 @ 1410. Patient/family oriented to hospital policies and general routines including ID bracelet, bed and alarms, visiting hours, pain management, procedures, bathroom and other care routines, personal items, smoking policy, room service/diet, and visiting hours. Information on how to activate the Rapid Response Team has been discussed. Patient/Family are encouraged to report perceived risks to care and to ask questions if they do not understand what they are told or what they should do.
[2024-06-28] MEDS: levETIRAcetam 500MG/NACL 100ML 500 MG/100 ML BAG 400 MG IVPB (14:45)
[2024-06-28] MEDS: carvediloL 3.125 MG TABLET PO (14:47)
[2024-06-28] MEDS: PREGABALIN (*CRX) 75 MG CAPSULE 150 MG PO (14:47)
[2024-06-28] MEDS: ASPIRIN 81 MG CHEWABLE TABLET PO (14:48)
[2024-06-28] MEDS: APIXABAN 5 MG TABLET PO (14:48)
--- NOTE | 2024-06-28 15:20 | P.CONNP_ITS ---
Assessment and Plan Assessment and plan (1) End stage renal disease: Code(s): N18.6 - End stage renal disease Status: Chronic Assessment and Plan: * HD later today * eventually transition back to home HD on discharge * follow electrolytes, volume status, and clearance * outpatient dialysis unit = [facility] * primary manager cardiac cath = Dr. Markie Ryan (2) Altered mental status: Qualifiers: Altered mental status type: unspecified Qualified Code(s): R41.82 - Altered mental status, unspecified Code(s): R41.82 - Altered mental status, unspecified Status: Acute Assessment and Plan: * etiology? * stroke/CVA? * worsening demention? * seizure? * other? * Neurology following * CT of head and MRI of brain noted * follow-up on EEG and Echo * on ASA + statin + Eliquis + Keppra * PT/OT as tolerated (3) Anemia: Qualifiers: Anemia type: unspecified type Qualified Code(s): D64.9 - Anemia, unspecified Code(s): D64.9 - Anemia, unspecified Status: Chronic Assessment and Plan: * due to ESRD * H/H at goal * holding Retacrit with dialysis * follow H/H (4) Congestive heart failure: Qualifiers: Heart failure type: diastolic Heart failure chronicity: chronic Q ualified Code(s): I50.32 - Chronic diastolic (congestive) heart failure Code(s): I50.9 - Heart failure, unspecified Status: Chronic Assessment and Plan: * compensated at this time * fluid removal with HD to maintain euvolemia * follow volume status (5) Dementia: Code(s): F03.90 - Unspecified dementia, unspecified severity, without behavioral disturbance, psychotic disturbance, mood disturbance, and anxiety Status: Chronic Assessment and Plan: * known history * continue home medications (6) Insulin dependent diabetes mellitus: Status: Chronic Assessment and Plan: * follow accu-cheks * glycemic control per hospitalist I will continue to follow the patient with you while she remains hospitalized and make further recommendations as deemed necessary. Thank you for allowing me to participate in the care of this patient. L History of Present Illness Reason for Consult Consult date: 06/28/24 Reason for consult: end stage renal disease Chief Complaint Chief complaint: AMS History of Present Illness Narrative: All the history that I have obtained is from review of the electronic medical record as well as discussion with the ER physician /provider along with her outpatient dialysis unit as the patient is unable to provide much history due to her altered mental status and known history of dementia. The patient is a 72-year-old female with a past medical history as outlined below who presented to [facility] Emergency Room with altered mental status. According to the patient's family, they noticed the patient was not acting at her normal baseline mentation. She was apparently at her baseline the evening the day before yesterday prior to admission around 6:00 p.m.. Around that time, she fell asleep. At her baseline, despite her dementia, she is usually more talkative and active but since she woke up earlier yesterday morning. the report episodes where the patient has been staring off into space with her being nonverbal during these episodes. Other associated symptoms include multiple episodes of diarrhea over the past few days. given these constellation of symptoms, her family called EMS and she was subsequently transferred to the emergency room for further assessment. Workup and evaluation emergency room demonstrated the patient be hemodynamically stable and in no acute distress. Routine blood tests were done whichDemonstrated a normal white blood cell count, relative anemia, and a chemistry that was consistent with her known history of end-stage renal disease with her potassium a mildly elevated 5.7. Her urinalysis was unremarkable and subsequent imaging including a CT scan of her head as well as her abdomen pelvis were unremarkable for any acute pathology. Her chest x-ray did not demonstrate any significant findings either. bile testing for influenza, RSV, and COVID were all negative. Her mental status did not really significantly improved while she was in the emergency room and hence she was subsequently admitted to the hospital for further evaluation and therapy. Since her admission, she has been seen Neurology and along with some medication adjustments, an MRI of her brain has been ordered to further evaluate for the possibility of some type of neurological deficits/finding. Renal consultation was requested due to her end-stage renal disease. The patient has recently been transition to home hemodialysis I believe her last treatment was sometime last week. She had been doing incenter hemodialysis on a Thursday, Thursday, Thursday dialysis schedule at [facility] under the care of Dr. Markie Ryan. As mentioned, she just recently transition to home hemodialysis and I believe is in training with her family to continue this this treatment modality long-term. I was able to get a hold of her outpatient dialysis center and the speak to some of the nurses there who did inform me that she has had previous episodes similar to what led to her presentation to the ER. Apparently, sometimes during her in-center dialysis treatments, she was suddenly have a blank stare with limited responsiveness and apparently has been sent to the hospital for further evaluation of these episodes but it is unclear if there is an actual formal diagnosis although there was some concern that these may be episodes of absence seizures. Currently, at the time my evaluation, she appears to be in no acute distress. She is tentatively scheduled to receive dialysis later today. Review of Systems 2 Review of Systems: As per HPI. [facility] Past Medical History Medical History (Updated 07/01/24 @ 17:11 by Evelina Malloy MD) Drug-induced Parkinson's disease Heart failure with preserved ejection fraction Insulin dependent diabetes mellitus Chronic kidney disease, stage 4 (severe) Creatinine ranges from 1.9 to 2.20. Venous thrombosis Anemia Hyperkalemia Dementia COVID (06/2021) Schizophrenia Diabetic neuropathy Surgical History Surgical History History of cataract extraction with lens replacement History of section Right great toe amputee Family History Family History Mother Diabetes mellitus Acute myocardial infarction Father Heart attack Cancer Sibling Diabetes mellitus Acute myocardial infarction Social History Social History Social History: The patient lives with her daughter and grand son in [place]. Lifelong nonsmoker. No alcohol or illicit substance abuse. She designates her daughter, Candelaria Gayle, as her surrogate decision maker. Code status: Full code. Smoking status: Never smoker Alcohol intake: former Substance use: never Do You Feel Safe in your Home?: No Lack of Transportation: No Lack of Food: Never True Current Housing: I Have Housing Concerned About Future Housing: No Difficulty Paying Gas/Electric Bills: No Difficulty Paying for Meds: No Currently Unemployed: No Education: Decline to Answer Difficulty w/ Childcare or Family Care: No Living arrangements: with family Spiritual care concerns: No Meds Home Medications and Allergies Home Medications ?Medication ?Instructions ?Recorded ?Confirmed ?Type atorvastatin 40 mg tablet 20 mg PO HS 06/23/21 06/28/24 History pregabalin 150 mg capsule 150 mg PO .COMPLEX 06/23/21 06/28/24 History acetaminophen 325 mg tablet 650 mg PO Q6H PRN Pain 09/19/21 06/28/24 History ferrous sulfate 325 mg (65 mg 325 mg PO DAILY 09/19/21 06/28/24 History iron) tablet insulin glargine 100 unit/mL (3 18 unit subcut HS 09/19/21 06/28/24 History mL) subcutaneous pen (Lantus Solostar U-100 Insulin) insulin lispro 100 unit/mL 1 - 4 sliding scale dose subcut 09/19/21 06/28/24 History subcutaneous pen USEASDIRECTD lidocaine 5 % topical patch 2 patch topical DAILY PRN Back Pain 09/19/21 06/28/24 History multivitamin 1 tablet PO DAILY 09/19/21 06/28/24 History carvedilol 3.125 mg tablet (Coreg) 3.125 mg PO Q12HR #60 tabs 09/23/21 06/28/24 Rx risperidone 2 mg tablet 2 mg PO HS #30 tabs 09/23/21 06/28/24 Rx albuterol sulfate 90 mcg/actuation 2 inh inhalation Q4H PRN Shortness 11/04/21 06/28/24 History aerosol inhaler Of Breath Or Wheezing apixaban 5 mg tablet (Eliquis) 5 mg PO Q12HR #60 tabs 11/14/21 06/28/24 Rx benzonatate 100 mg capsule 100 mg PO Q8HR PRN Cough #30 caps 11/14/21 06/28/24 Rx aspirin 81 mg chewable tablet 81 mg PO DAILY 06/28/24 06/28/24 History benztropine 2 mg tablet 2 mg PO HS 06/28/24 06/28/24 History calcium phosphate,dibasic 77 1 tablet PO WEEKLY 06/28/24 06/28/24 History mg-vitamin D3 400 unit tablet hydralazine 25 mg tablet 25 mg PO .q12 06/28/24 06/28/24 History nifedipine 60 mg tablet,extended 60 mg PO HS 06/28/24 06/28/24 History release pantoprazole 40 mg tablet,delayed 40 mg PO Q12H 06/28/24 06/28/24 History release tramadol 25 mg tablet 25 mg PO Q6H PRN pain 06/28/24 06/28/24 History Allergies Allergy/AdvReac Type Severity Reaction Status Date / Time No Known Allergies Allergy Verified 06/28/24 09:12 Vital Signs Vital Signs Temp Pulse Resp BP Pulse Ox O2 Del Method 06/28/24 15:19 97.2 F L 72 20 152/87 H 100 06/28/24 14:47 67 06/28/24 14:40 96.8 F L 70 20 179/79 H 94 06/28/24 13:54 68 12 141/80 H 97 06/28/24 13:02 68 18 141/80 H 98 06/28/24 08:00 97 Room Air 06/28/24 07:19 70 14 191/64 H 97 06/28/24 04:15 79 15 158/60 H 97 06/27/24 22:44 78 16 152/62 H 97 06/27/24 20:43 93 21 H 170/80 H 99 Exam 2 Narrative: GENERAL APPEARANCE: elderly female in no acute distress HEENT: normocephalic, atraumatic, normal conjunctiva and sclera, nares patient NECK: no lymphadenopathy, thyromegaly, or JVD MOUTH: normal lips, teeth, and gums CARDIOVASCULAR: RRR, normal S1 and S2, no rub RESPIRATORY: clear to auscultation bilaterally ABDOMEN: soft, nontender, nondistended, positive bowel sounds present EXTREMITIES: no evidence of cyanosis, clubbing, or edema NEUROLOGICAL: alert and oriented x 1 - 2; no focal deficits noted Results Lab Results 07/01/24 08:44 07/01/24 08:44 Lab results: Most recent lab results Calcium 9.0 mg/dL (8.4-10.2) 06/28/24 05:35 Phosphorus 4.8 mg/dL (2.5-4.5) H 06/28/24 05:35 Magnesium 1.6 mg/dL (1.6-2.3) 06/28/24 05:35
[2024-06-28] MEDS: PERFLUTREN LIPID MICROSPHERES 1.5 ML VIAL DILUTED TO 10 ML TOTAL VOLUME IV PUSH (17:05)
--- NOTE | 2024-06-28 17:16 | IVDEFINITY ---
Prior to administration of IV Definity the patient was educated on the risks and benefits of the imaging enhancing agent including potential adverse side effects. The patient verbalized understanding. Allergies were verified. No exclusion criteria were identified and at least one of the following inclusion criteria were met: 1) physician request, 2) patient technically difficult to image (per the [place] [employer] guidelines of two or more segments not discernable within the apical view), or 3) questionable left ventricular function. ?
[2024-06-28 17:28] LABS: Glucose Point of Care 131 mg/dl (65-105)
[2024-06-28 17:52] LABS: Folic Acid 8.4 ng/mL (2.76->20)
[2024-06-28 20:21] LABS: Glucose Point of Care 154 mg/dl (65-105)
--- NOTE | 2024-06-28 20:39 | PC.NURSE ---
patient moved to dialysis at 2020hrs
[2024-06-28] MEDS: ALBUMIN HUMAN 25% 12.5 GM/50ML 50 ML IVPB (21:24)
[2024-06-28] MEDS: ALBUMIN HUMAN 25% 12.5 GM/50ML 50 ML 999 GM (23:15)
[2024-06-28] MEDS: ALBUMIN HUMAN 25% 12.5 GM/50ML 50 ML 100 GM (23:15)
[2024-06-29] VITALS (16 sets, daily range): BP systolic 132–160; BP diastolic 50–74; PULSE 59–93; RESP 14–18; TEMP 36.2–37.4; O2SAT 94–99
[2024-06-29] MEDS: HEPARIN SODIUM 1,000 UNITS/ML VIAL 4000 UNITS (00:25)
--- NOTE | 2024-06-29 00:44 | PC.NURSE ---
pt back to room 306-2 from dialysis 0045hrs
[2024-06-29] MEDS: levETIRAcetam 500MG/NACL 100ML 500 MG/100 ML BAG 400 MG IVPB ×3 (00:49→20:47)
[2024-06-29 06:50] LABS: Basophils Percent Auto 0.3 % (0.2-1.2); Eosinophils Absolute Auto 0.1 K/mm3 (0-0.3); Eosinophils Percent Auto 0.7 % (0-4.4); Hematocrit 34.9 % (37.0-47.0); Hemoglobin 11.1 g/dL (12.0-15.0); Immature Granulocyte Absolute 0.02 K/mm3 (0.00-0.031); Immature Granulocyte Percent A 0.3 % (0-0.5); Lymphocytes Absolute Auto 1.63 K/mm3 (0.9-3.2); Lymphocytes Percent Auto 24.4 % (18.3-44.2); Mean Corpuscular HGB Conc 31.8 g/dl (32-36); Mean Corpuscular Hemoglobin 32.1 pg (26-34); Mean Corpuscular Volume 100.9 fl (80-100); Mean Platelet Volume 11.1 fl (7.4-10.4); Monocytes Absolute Auto 0.7 K/mm3 (0.1-0.6); Monocytes Percent Auto 10.8 % (2.6-8.5); Neutrophils Absolute Auto 4.2 K/mm3 (1.3-6.7); Neutrophils Percent Auto 63.5 % (45.5-73.1); Platelet Count Result 207 k/mm3 (150-375); Red Blood Count 3.46 M/mm3 (4.2-5.4); Red Cell Distribution Width 17.2 % (11.5-14.5); White Blood Count 6.7 K/mm3 (4.5-10.0)
[2024-06-29 07:15] LABS: Alanine Aminotransferase 20 U/L (6-35); Alkaline Phosphatase 71 U/L (38-126); Anion Gap 7 mmol/L (4-12); Aspartate Amino Transferase 29 U/L (14-36); Bilirubin,Total 0.4 mg/dL (0.2-1.3); Blood Urea Nitrogen 28 mg/dL (7-17); Calcium 8.5 mg/dL (8.4-10.2); Carbon Dioxide 28 mmol/L (22-30); Chloride 103 mmol/L (98-107); Estimated Glomerular Filt Rate 16; Glucose 122 mg/dL (65-110); Magnesium 1.8 mg/dL (1.6-2.3); Potassium 3.4 mmol/L (3.4-5.0); Sodium 138 mmol/L (137-145)
--- NOTE | 2024-06-29 10:53 | WPDNEUROLOGY ---
Neurology EEG Report General Information Date of Study: 06/29/24 TEST eeg DIAGNOSIS possible seizures. CONDITION OF RECORDING drowsy and sleep. EEG NUMBER [id number] CLINICAL HISTORY patient unable to give any particular history but family brought her into the hospital for change in the mental status. EEG DESCRIPTION Whole tracing was done during sleep with low to medium voltage 5 to 7 hertz per 2nd theta admixed with 3 to 4 hertz per 2nd delta activity and superimposed by low voltage beta activity. Hyperventilation not done. Photic stimulation not done. Non paroxysmal. Nonfocal. Non lateralizing. IMPRESSION No significant abnormalities noted to consider the focal involvement of the brain or active seizures as the tracing was mainly done during sleep. Clinical correlation recommended.
--- NOTE | 2024-06-29 11:04 | PCSTNOTE ---
Please refer to the Bedside Swallow Evaluation in the EMR. Please note, silent aspiration cannot be ruled out at bedside.
--- NOTE | 2024-06-29 11:05 | PCSTNOTE ---
Communication evaluation completed. See EMR for full results.
[2024-06-29 11:43] LABS: Glucose Point of Care 163 mg/dl (65-105)
--- NOTE | 2024-06-29 11:55 | PCPTNOTE ---
bedrest orders removed; PT eval performed.
--- NOTE | 2024-06-29 13:12 | P.PNIM_ITS ---
Progress Note: A&P Assessment and Plan (1) Altered mental status: Qualifiers: Altered mental status type: unspecified Qualified Code(s): R41.82 - Altered mental status, unspecified Code(s): R41.82 - Altered mental status, unspecified Status: Acute Plan AMS R/o Stroke, Seizure, worsening Dementia and Parkinson's disease Patient presented with AMS, has resting tremor at baseline CT head, CT AP & chest unremarkable, UA unremarkable MRI brain show dold lacunar infarct in the right thalamus, with non specific white matter and pontine disease EEG no significant abnormalities B12/Folate wnl ECHO still pending Continue Aspirin, Lipitor and Eliquis; Keppra 500mg bid neurology consulted PT/OT DM2 SSi with accucheks and adjust with clinical course Schizophrenia continue home meds CHF titrate home meds with clinical course ESRD on dialysis Nephrology consulted DVT prophylaxis on Eliquis Subjective Date/time seen: 06/29/24 13:12 Interval history: Comfortable at bedside Still lethargic but much alert compared to yesterday Review of Systems Review of Systems: all the systems were reviewed and negative except as noted in history of will further Exam Narrative: GENERAL APPEARANCE alert with delayed response and oriented x2 HEAD/NECK normocephalic atraumatic, no facial trauma, neck is supple. RESPIRATORY respiratory effort normal, speaks in full sentences, no tripod position, no accessory muscle use. Lungs clear to auscultation without rhonchi, wheezes, rales CARDIAC Regular rate and rhythm, no edema. ABDOMINAL Soft, ND/NT. No evidence of fluid wave. No pulsatile masses on exam, rebound tenderness, Armendariz sign or pain over Mcburney's point. MUSCLES/EXTREMITIES No abnormal range of motion, no swelling. SKIN Warm, pink and dry. No rashes, dermatoses, petechiae or lesions. NEUROLOGICAL Speech is clear and appropriate. Normal level of consciousness. Gait and coordination are normal. 5/5 strength in all extremities. resting tremors Objective Data Vital Signs Vital Signs: Vital Signs - 24 hr 06/28/24 13:54 06/28/24 14:40 06/28/24 14:47 Temperature 96.8 F L Pulse Rate 68 70 67 Respiratory Rate 12 20 Blood Pressure 141/80 H 179/79 H Pulse Oximetry 97 94 Oxygen Delivery 06/28/24 15:19 06/28/24 17:09 06/28/24 20:00 Temperature 97.2 F L Pulse Rate 72 68 71 Respiratory Rate 20 20 Blood Pressure 152/87 H Pulse Oximetry 100 93 Oxygen Delivery Room Air 06/28/24 20:00 06/28/24 20:24 06/28/24 20:43 Temperature 97.4 F L 97.9 F Pulse Rate 74 71 69 Respiratory Rate 20 18 Blood Pressure 149/60 H 173/82 H Pulse Oximetry 93 Oxygen Delivery 06/28/24 20:52 06/28/24 21:00 06/28/24 21:15 Temperature Pulse Rate 68 68 74 Respiratory Rate Blood Pressure 165/78 H 142/73 H 94/55 L Pulse Oximetry Oxygen Delivery 06/28/24 21:19 06/28/24 21:30 06/28/24 21:45 Temperature Pulse Rate 74 74 81 Respiratory Rate Blood Pressure 89/70 L 115/68 147/89 H Pulse Oximetry Oxygen Delivery 06/28/24 22:00 06/28/24 22:15 06/28/24 22:30 Temperature Pulse Rate 73 74 81 Respiratory Rate Blood Pressure 130/71 130/69 132/70 Pulse Oximetry Oxygen Delivery 06/28/24 22:45 06/28/24 23:00 06/28/24 23:06 Temperature Pulse Rate 72 75 76 Respiratory Rate Blood Pressure 130/68 90/46 L 85/48 L Pulse Oximetry Oxygen Delivery 06/28/24 23:15 06/28/24 23:30 06/28/24 23:45 Temperature Pulse Rate 949 H 69 70 Respiratory Rate Blood Pressure 130/66 148/75 H 160/74 H Pulse Oximetry Oxygen Delivery 06/29/24 00:00 06/29/24 00:03 06/29/24 00:15 Temperature Pulse Rate 93 75 73 Respiratory Rate Blood Pressure 137/74 147/68 H Pulse Oximetry Oxygen Delivery 06/29/24 00:23 06/29/24 00:33 06/29/24 00:34 Temperature 97.7 F Pulse Rate 72 67 72 Respiratory Rate 18 Blood Pressure 143/72 H 160/73 H Pulse Oximetry Oxygen Delivery 06/29/24 04:00 06/29/24 04:06 06/29/24 08:00 Temperature 97.2 F L Pulse Rate 59 L 62 60 Respiratory Rate 14 Blood Pressure 132/50 L Pulse Oximetry 94 Oxygen Delivery Intake/Output Intake/Output: Intake & Output 06/26/24 06/27/24 06/28/24 06/29/24 23:59 23:59 23:59 23:59 Intake Total 640 340 Output Total 0 Balance 640 340 Meds/Results Medications: Active Medications Generic Name Dose Route Start Last Admin Trade Name Freq PRN Reason Stop Dose Admin Apixaban 5 mg 06/28/24 13:40 06/29/24 13:06 Apixaban 5 Mg Tablet PO Not Given Q12HR SOL Aspirin 81 mg 06/28/24 13:40 06/29/24 13:06 Aspirin 81 Mg Chewable Tablet PO Not Given DAILY SOL Atorvastatin Calcium 20 mg 06/28/24 21:00 06/29/24 00:34 Atorvastatin 20 Mg Tablet PO Not Given HS SOL Benzonatate 100 mg 06/28/24 13:32 Benzonatate 100 Mg Capsule PO Q8HR PRN Cough Benztropine Mesylate 2 mg 06/28/24 21:00 06/29/24 00:34 Benztropine Mesylate 1 Mg Tablet PO Not Given HS SOL Carvedilol 3.125 mg 06/28/24 13:40 06/29/24 13:06 Carvedilol 3.125 Mg Tablet PO Not Given Q12HR SOL Dextrose 12.5 gm 06/28/24 13:54 Dextrose 50% 25 Gm/50 Ml Syringe IV PUSH PRN PRN Hypoglycemia Protocol Glucagon 1 mg 06/28/24 13:54 Glucagon For Inj 1 Mg Vial IM PRN PRN Hypoglycemia Protocol Glucose 15 gm 06/28/24 13:54 Glucose Oral Gel 15 Gm Of Glucse In 37.5 Gm Tube PO PRN PRN Hypoglycemia Protocol Albumin Human 50 mls @ 999 mls/hr 06/28/24 06:45 06/28/24 21:24 Albutein IVPB 07/28/24 06:44 999 mls/hr Q10M PRN Administration HYPOTENSION Levetiracetam 500 mg in 100 mls @ 400 mls/hr 06/28/24 22:00 06/29/24 09:28 Keppra Iv IVPB 400 mls/hr Q12HR SOL Administration Dextrose 1,000 mls @ 100 mls/hr 06/28/24 13:54 Dextrose 5% 1,000 Ml IVPB PRN PRN Hypoglycemia Protocol Insulin Aspart 2 - 5 units 06/28/24 17:00 06/29/24 11:33 Insulin Aspart (*Bkc) 100 Units/Ml SUB-Q Not Given TIDWM [facility] Protocol Pregabalin 150 mg 06/28/24 14:00 06/28/24 14:47 Pregabalin (*Crx) 75 Mg Capsule PO 150 mg [id number] [facility] Administration Risperidone 2 mg 06/28/24 21:00 06/29/24 00:35 Risperidone 1 Mg Tablet PO 07/28/24 20:59 Not Given HS [facility] Radiology Results: ITS Impressions Chest X-Ray 06/27/24 18:17 IMPRESSION: No focal infiltrate or effusion. Head CT 06/27/24 18:25 Impression: No acute intracranial hemorrhage or suspicious mass effect. Chest/Abdomen/Pelvis CT 06/27/24 18:46 IMPRESSION: No acute pathology within the chest. No acute intra-abdominal pathology. Innumerable nonacute findings, as detailed above. Head/Neck CTA 06/27/24 23:17 IMPRESSION: 1. No large vessel occlusion. 2. Percent stenosis per NASCET criteria is 0% on the right, and 28% on the left. Brain MRI 06/28/24 16:08 IMPRESSION: 1. Old lacunar infarct in the right thalamus. 2. Moderate nonspecific cerebral white matter disease and pontine disease, which likely represents chronic small vessel ischemic disease. Labs Labs: Laboratory Results - last 24 hr 06/28/24 06/28/24 06/28/24 05:34 17:25 19:49 WBC RBC Hgb Hct MCV MCH MCHC RDW Plt Count MPV Immature Gran % (Auto) Neut % (Auto) Lymph % (Auto) [place] % (Auto) Eos % (Auto) Baso % (Auto) Lymph # (Auto) [place] # (Auto) Eos # (Auto) Baso # (Auto) Abs Immat Gran (auto) Absolute Neuts (auto) Absolute Nucleated RBC Nucleated RBC % Sodium Potassium Chloride Carbon Dioxide Anion Gap BUN Creatinine Estim Creat Clear Calc Estimated GFR Glucose POC Capillary Glucose 131 H 154 H Calcium Magnesium Total Bilirubin AST ALT Alkaline Phosphatase Total Protein Albumin Vitamin B12 572.0 Folate 8.4 06/29/24 06/29/24 06/29/24 06:34 06:35 11:29 WBC 6.7 RBC 3.46 L Hgb 11.1 L Hct 34.9 L MCV 100.9 H MCH 32.1 MCHC 31.8 L RDW 17.2 H Plt Count 207 MPV 11.1 H Immature Gran % (Auto) 0.3 Neut % (Auto) 63.5 Lymph % (Auto) 24.4 [place] % (Auto) 10.8 H Eos % (Auto) 0.7 Baso % (Auto) 0.3 Lymph # (Auto) 1.63 [place] # (Auto) 0.7 H Eos # (Auto) 0.1 Baso # (Auto) 0.0 Abs Immat Gran (auto) 0.02 Absolute Neuts (auto) 4.2 Absolute Nucleated RBC 0.000 Nucleated RBC % 0.0 Sodium 138 Potassium 3.4 Chloride 103 Carbon Dioxide 28 Anion Gap 7 BUN 28 H D Creatinine 3.47 H Estim Creat Clear Calc Not Reportable Estimated GFR 16 L Glucose 122 H POC Capillary Glucose 163 H Calcium 8.5 Magnesium 1.8 Total Bilirubin 0.4 AST 29 ALT 20 Alkaline Phosphatase 71 Total Protein 7.0 Albumin 4.0 Vitamin B12 Folate
--- NOTE | 2024-06-29 14:16 | P.PNNP_ITS ---
Progress Note: A&P Assessment and Plan (1) End stage renal disease: Code(s): N18.6 - End stage renal disease Status: Chronic Assessment and Plan: * HD yesterday * eventually transition back to home HD on discharge * follow electrolytes, volume status, and clearance * outpatient dialysis unit = [facility] * primary clinical business manager = Dr. Markie Ryan (2) Altered mental status: Qualifiers: Altered mental status type: unspecified Qualified Code(s): R41.82 - Altered mental status, unspecified Code(s): R41.82 - Altered mental status, unspecified Status: Acute Assessment and Plan: * appears clinically better * etiology? * stroke/CVA? * worsening demention? * seizure? * other? * Neurology following * CT of head and MRI of brain noted * follow-up on EEG and Echo * on ASA + statin + Eliquis + Keppra * PT/OT as tolerated (3) Anemia: Qualifiers: Anemia type: unspecified type Qualified Code(s): D64.9 - Anemia, unspecified Code(s): D64.9 - Anemia, unspecified Status: Chronic Assessment and Plan: * due to ESRD * H/H at goal * holding Retacrit with dialysis * follow H/H (4) Congestive heart failure: Qualifiers: Heart failure chronicity: chronic Heart failure type: diastolic Q ualified Code(s): I50.32 - Chronic diastolic (congestive) heart failure Code(s): I50.9 - Heart failure, unspecified Status: Chronic Assessment and Plan: * compensated at this time * fluid removal with HD to maintain euvolemia * follow volume status (5) Dementia: Code(s): F03.90 - Unspecified dementia, unspecified severity, without behavioral disturbance, psychotic disturbance, mood disturbance, and anxiety Status: Chronic Assessment and Plan: * known history * continue home medications (6) Insulin dependent diabetes mellitus: Status: Chronic Assessment and Plan: * follow accu-cheks * glycemic control per hospitalist Will continue to follow. L Subjective Date/time seen: 06/29/24 14:16 Interval history: Follow-up for end stage renal disease on hemodialysis. Tolerated dialysis treatment yesterday although no fluid was removed due to issues with hypotension during dialysis session requiring IV albumin; mentation/mentals seems better at the time of my visit as she more awake/alert and responsive to simple questions; no apparent distress noted. Exam 2 Narrative: General: elderly female in NAD Heart: normal S1 and S2; no rub Lungs: clear to auscultation Abdomen: soft, nontender, nondistended, positive bowel sounds Extremities: no cyanosis or clubbing; no edema Skin: warm and dry Objective Data Vital Signs Vital Signs: Vital Signs Temp Pulse Resp BP Pulse Ox O2 Del Method 06/29/24 14:00 97.5 F L 66 18 135/52 L 99 06/29/24 12:00 66 06/29/24 08:00 66 14 94 Room Air 06/29/24 08:00 60 06/29/24 04:06 97.2 F L 62 14 132/50 L 94 06/29/24 04:00 59 L 06/29/24 00:34 72 06/29/24 00:33 97.7 F 67 18 160/73 H 06/29/24 00:23 72 143/72 H 06/29/24 00:15 73 147/68 H 06/29/24 00:03 75 06/29/24 00:00 93 137/74 06/28/24 23:45 70 160/74 H 06/28/24 23:30 69 148/75 H 06/28/24 23:15 949 H 130/66 06/28/24 23:06 76 85/48 L 06/28/24 23:00 75 90/46 L 06/28/24 22:45 72 130/68 06/28/24 22:30 81 132/70 06/28/24 22:15 74 130/69 06/28/24 22:00 73 130/71 06/28/24 21:45 81 147/89 H 06/28/24 21:30 74 115/68 06/28/24 21:19 74 89/70 L 06/28/24 21:15 74 94/55 L 06/28/24 21:00 68 142/73 H 06/28/24 20:52 68 165/78 H 06/28/24 20:43 97.9 F 69 18 173/82 H 06/28/24 20:24 97.4 F L 71 20 149/60 H 93 06/28/24 20:00 74 06/28/24 20:00 71 20 93 Room Air Intake/Output Intake/Output: Intake & Output 06/26/24 06/27/24 06/28/24 06/29/24 23:59 23:59 23:59 23:59 Intake Total 640 580 Output Total 0 Balance 640 580 Meds/Results Medications: Active Medications Generic Name Dose Route Start Last Admin Trade Name Freq PRN Reason Stop Dose Admin Apixaban 5 mg 06/28/24 13:40 06/29/24 13:06 Apixaban 5 Mg Tablet PO Not Given Q12HR SOL Aspirin 81 mg 06/28/24 13:40 06/29/24 13:06 Aspirin 81 Mg Chewable Tablet PO Not Given DAILY SOL Atorvastatin Calcium 20 mg 06/28/24 21:00 06/29/24 00:34 Atorvastatin 20 Mg Tablet PO Not Given HS SOL Benzonatate 100 mg 06/28/24 13:32 Benzonatate 100 Mg Capsule PO Q8HR PRN Cough Benztropine Mesylate 2 mg 06/28/24 21:00 06/29/24 00:34 Benztropine Mesylate 1 Mg Tablet PO Not Given HS SOL Carvedilol 3.125 mg 06/28/24 13:40 06/29/24 13:06 Carvedilol 3.125 Mg Tablet PO Not Given Q12HR SOL Dextrose 12.5 gm 06/28/24 13:54 Dextrose 50% 25 Gm/50 Ml Syringe IV PUSH PRN PRN Hypoglycemia Protocol Glucagon 1 mg 06/28/24 13:54 Glucagon For Inj 1 Mg Vial IM PRN PRN Hypoglycemia Protocol Glucose 15 gm 06/28/24 13:54 Glucose Oral Gel 15 Gm Of Glucse In 37.5 Gm Tube PO PRN PRN Hypoglycemia Protocol Albumin Human 50 mls @ 999 mls/hr 06/28/24 06:45 06/28/24 21:24 Albutein IVPB 07/28/24 06:44 999 mls/hr Q10M PRN Administration HYPOTENSION Levetiracetam 500 mg in 100 mls @ 400 mls/hr 06/28/24 22:00 06/29/24 09:28 Keppra Iv IVPB 400 mls/hr Q12HR SOL Administration Dextrose 1,000 mls @ 100 mls/hr 06/28/24 13:54 Dextrose 5% 1,000 Ml IVPB PRN PRN Hypoglycemia Protocol Insulin Aspart 2 - 5 units 06/28/24 17:00 06/29/24 17:12 Insulin Aspart (*Bkc) 100 Units/Ml SUB-Q Not Given TIDWM [facility] Protocol Pregabalin 150 mg 06/28/24 14:00 06/28/24 14:47 Pregabalin (*Crx) 75 Mg Capsule PO 150 mg TuThSa@1400 [facility] Administration Risperidone 2 mg 06/28/24 21:00 06/29/24 00:35 Risperidone 1 Mg Tablet PO 07/28/24 20:59 Not Given HS [facility] Radiology Results: ITS Impressions Chest X-Ray 06/27/24 18:17 IMPRESSION: No focal infiltrate or effusion. Head CT 06/27/24 18:25 Impression: No acute intracranial hemorrhage or suspicious mass effect. Chest/Abdomen/Pelvis CT 06/27/24 18:46 IMPRESSION: No acute pathology within the chest. No acute intra-abdominal pathology. Innumerable nonacute findings, as detailed above. Head/Neck CTA 06/27/24 23:17 IMPRESSION: 1. No large vessel occlusion. 2. Percent stenosis per NASCET criteria is 0% on the right, and 28% on the left. Brain MRI 06/28/24 16:08 IMPRESSION: 1. Old lacunar infarct in the right thalamus. 2. Moderate nonspecific cerebral white matter disease and pontine disease, which likely represents chronic small vessel ischemic disease. Labs Labs: Laboratory Tests 06/29/24 06:35 06/29/24 06:34 Calcium 8.5 Magnesium 1.8 Total Bilirubin 0.4 AST 29 ALT 20 Alkaline Phosphatase 71 Total Protein 7.0 Albumin 4.0 Microbiology 06/27/24 19:01 Blood Blood Culture - Preliminary 06/27/24 19:01 Blood Blood Culture - Preliminary
[2024-06-29 16:08] LABS: Glucose Point of Care 146 mg/dl (65-105)
[2024-06-29] MEDS: SODIUM CHLORIDE 0.9% IV 250 ML IV CONT (17:12)
[2024-06-29 19:15] LABS: Toxigenic C. Diff NEGATIVE (NEGATIVE)
[2024-06-29] MEDS: ATORVASTATIN 20 MG TABLET PO (20:47)
[2024-06-29] MEDS: risperiDONE 1 MG TABLET 2 MG PO (20:47)
[2024-06-29] MEDS: APIXABAN 5 MG TABLET PO (20:47)
[2024-06-29] MEDS: carvediloL 3.125 MG TABLET PO (20:47)
[2024-06-29] MEDS: BENZTROPINE MESYLATE 1 MG TABLET 2 MG PO (20:47)
[2024-06-29 20:57] LABS: Glucose Point of Care 156 mg/dl (65-105)
[2024-06-30] VITALS (26 sets, daily range): BP systolic 96–166; BP diastolic 47–70; PULSE 58–78; RESP 16–20; TEMP 36.4–37.3; O2SAT 97–100; BMI 22.2
[2024-06-30 07:16] LABS: Glucose Point of Care 111 mg/dl (65-105)
[2024-06-30 08:23] LABS: Basophils Percent Auto 0.2 % (0.2-1.2); Eosinophils Percent Auto 0.5 % (0-4.4); Hematocrit 35.7 % (37.0-47.0); Hemoglobin 11.2 g/dL (12.0-15.0); Immature Granulocyte Absolute 0.02 K/mm3 (0.00-0.031); Immature Granulocyte Percent A 0.2 % (0-0.5); Lymphocytes Absolute Auto 2.12 K/mm3 (0.9-3.2); Lymphocytes Percent Auto 24.7 % (18.3-44.2); Mean Corpuscular HGB Conc 31.4 g/dl (32-36); Mean Corpuscular Hemoglobin 31.9 pg (26-34); Mean Corpuscular Volume 101.7 fl (80-100); Mean Platelet Volume 11.1 fl (7.4-10.4); Monocytes Absolute Auto 0.6 K/mm3 (0.1-0.6); Monocytes Percent Auto 7.3 % (2.6-8.5); Neutrophils Absolute Auto 5.8 K/mm3 (1.3-6.7); Neutrophils Percent Auto 67.1 % (45.5-73.1); Platelet Count Result 223 k/mm3 (150-375); Red Blood Count 3.51 M/mm3 (4.2-5.4); Red Cell Distribution Width 16.8 % (11.5-14.5); White Blood Count 8.6 K/mm3 (4.5-10.0)
[2024-06-30 08:34] LABS: Lactic Acid Reflex 0.7 mmol/L (0.7-2.0)
[2024-06-30 08:41] LABS: Alanine Aminotransferase 18 U/L (6-35); Albumin Level 3.7 g/dL (3.5-5.1); Alkaline Phosphatase 83 U/L (38-126); Anion Gap 9 mmol/L (4-12); Aspartate Amino Transferase 29 U/L (14-36); Bilirubin,Total 0.4 mg/dL (0.2-1.3); Blood Urea Nitrogen 46 mg/dL (7-17); Calcium 8.6 mg/dL (8.4-10.2); Carbon Dioxide 23 mmol/L (22-30); Chloride 105 mmol/L (98-107); Estimated Glomerular Filt Rate 9; Glucose 112 mg/dL (65-110); Magnesium 1.7 mg/dL (1.6-2.3); Potassium 3.9 mmol/L (3.4-5.0); Sodium 137 mmol/L (137-145)
--- NOTE | 2024-06-30 11:11 | PM.IMPN ---
Progress Note: A&P Assessment and Plan (1) Altered mental status: Qualifiers: Altered mental status type: unspecified Qualified Code(s): R41.82 - Altered mental status, unspecified Code(s): R41.82 - Altered mental status, unspecified Status: Acute Plan AMS R/o Stroke, Seizure, worsening Dementia and Parkinson's disease Patient presented with AMS, has resting tremor at baseline CT head, CT AP & chest unremarkable, UA unremarkable MRI brain show dold lacunar infarct in the right thalamus, with non specific white matter and pontine disease EEG no significant abnormalities B12/Folate wnl ECHO EF 65-70% and Grade I diastolic dysfunction Continue Aspirin, Lipitor and Eliquis; Keppra 500mg bid neurology following PT/OT FTT/Protein energy malnutrition Liberalize diet, Protein supplement Speech eval Dietitian consulted DM2 SSi with accucheks and adjust with clinical course Schizophrenia continue home meds CHF titrate home meds with clinical course ESRD on dialysis Nephrology consulted DVT prophylaxis on Eliquis Subjective Date/time seen: 06/30/24 11:11 Interval history: Patient comfortable at bedside, delayed response has improved markedly however she is lethargic at bedside Poor oral intake Review of Systems Review of Systems: all the systems were reviewed and negative except as noted in history of will further Exam Narrative: GENERAL APPEARANCE alert with delayed response and oriented x2 HEAD/NECK normocephalic atraumatic, no facial trauma, neck is supple. RESPIRATORY respiratory effort normal, speaks in full sentences, no tripod position, no accessory muscle use. Lungs clear to auscultation without rhonchi, wheezes, rales CARDIAC Regular rate and rhythm, no edema. ABDOMINAL Soft, ND/NT. No evidence of fluid wave. No pulsatile masses on exam, rebound tenderness, Armendariz sign or pain over Mcburney's point. MUSCLES/EXTREMITIES No abnormal range of motion, no swelling. SKIN Warm, pink and dry. No rashes, dermatoses, petechiae or lesions. NEUROLOGICAL Speech is clear and appropriate. Normal level of consciousness. Gait and coordination are normal. 5/5 strength in all extremities. resting tremors Objective Data Vital Signs Vital Signs: Vital Signs - 24 hr 06/29/24 12:00 06/29/24 14:00 06/29/24 16:00 Temperature 97.5 F L Pulse Rate 66 66 62 Respiratory Rate 18 Blood Pressure 135/52 L Pulse Oximetry 99 Oxygen Delivery 06/29/24 20:00 06/29/24 20:40 06/29/24 20:47 Temperature Pulse Rate 68 66 64 Respiratory Rate 14 Blood Pressure Pulse Oximetry 98 Oxygen Delivery Room Air 06/29/24 21:41 06/30/24 00:03 06/30/24 04:00 Temperature 99.4 F Pulse Rate 66 59 L 60 Respiratory Rate 14 Blood Pressure 149/62 H Pulse Oximetry 98 Oxygen Delivery 06/30/24 06:00 06/30/24 08:00 06/30/24 08:51 Temperature 97.9 F Pulse Rate 60 58 L Respiratory Rate 16 Blood Pressure 130/62 Pulse Oximetry 100 97 Oxygen Delivery Room Air Intake/Output Intake/Output: Intake & Output 06/27/24 06/28/24 06/29/24 06/30/24 23:59 23:59 23:59 23:59 Intake Total 640 920 0 Output Total 0 Balance 640 920 0 Meds/Results Medications: Active Medications Generic Name Dose Route Start Last Admin Trade Name Freq PRN Reason Stop Dose Admin Apixaban 5 mg 06/28/24 13:40 06/29/24 20:47 Apixaban 5 Mg Tablet PO 5 mg Q12HR SOL Administration Aspirin 81 mg 06/28/24 13:40 06/29/24 13:06 Aspirin 81 Mg Chewable Tablet PO Not Given DAILY SOL Atorvastatin Calcium 20 mg 06/28/24 21:00 06/29/24 20:47 Atorvastatin 20 Mg Tablet PO 20 mg HS SOL Administration Benzonatate 100 mg 06/28/24 13:32 Benzonatate 100 Mg Capsule PO Q8HR PRN Cough Benztropine Mesylate 2 mg 06/28/24 21:00 06/29/24 20:47 Benztropine Mesylate 1 Mg Tablet PO 2 mg HS SOL Administration Carvedilol 3.125 mg 06/28/24 13:40 06/29/24 20:47 Carvedilol 3.125 Mg Tablet PO 3.125 mg Q12HR SOL Administration Dextrose 12.5 gm 06/28/24 13:54 Dextrose 50% 25 Gm/50 Ml Syringe IV PUSH PRN PRN Hypoglycemia Protocol Glucagon 1 mg 06/28/24 13:54 Glucagon For Inj 1 Mg Vial IM PRN PRN Hypoglycemia Protocol Glucose 15 gm 06/28/24 13:54 Glucose Oral Gel 15 Gm Of Glucse In 37.5 Gm Tube PO PRN PRN Hypoglycemia Protocol Albumin Human 50 mls @ 999 mls/hr 06/28/24 06:45 06/28/24 21:24 Albutein IVPB 07/28/24 06:44 999 mls/hr Q10M PRN Administration HYPOTENSION Levetiracetam 500 mg in 100 mls @ 400 mls/hr 06/28/24 22:00 06/29/24 20:47 Keppra Iv IVPB 400 mls/hr Q12HR SOL Administration Dextrose 1,000 mls @ 100 mls/hr 06/28/24 13:54 Dextrose 5% 1,000 Ml IVPB PRN PRN Hypoglycemia Protocol Insulin Aspart 2 - 5 units 06/28/24 17:00 06/30/24 09:31 Insulin Aspart (*Bkc) 100 Units/Ml SUB-Q Not Given TIDWM SOL Protocol Pregabalin 150 mg 06/28/24 14:00 06/28/24 14:47 Pregabalin (*Crx) 75 Mg Capsule PO 150 mg TuThSa@1400 SOL Administration Risperidone 2 mg 06/28/24 21:00 06/29/24 20:47 Risperidone 1 Mg Tablet PO 07/28/24 20:59 2 mg HS SOL Administration Radiology Results: ITS Impressions Chest X-Ray 06/27/24 18:17 IMPRESSION: No focal infiltrate or effusion. Head CT 06/27/24 18:25 Impression: No acute intracranial hemorrhage or suspicious mass effect. Chest/Abdomen/Pelvis CT 06/27/24 18:46 IMPRESSION: No acute pathology within the chest. No acute intra-abdominal pathology. Innumerable nonacute findings, as detailed above. Head/Neck CTA 06/27/24 23:17 IMPRESSION: 1. No large vessel occlusion. 2. Percent stenosis per NASCET criteria is 0% on the right, and 28% on the left. Brain MRI 06/28/24 16:08 IMPRESSION: 1. Old lacunar infarct in the right thalamus. 2. Moderate nonspecific cerebral white matter disease and pontine disease, which likely represents chronic small vessel ischemic disease. Abdomen CT 06/30/24 09:56 IMPRESSION: Trace residual contrast in the bilateral renal collecting systems, suggesting delayed excretion (? Poor renal function?). No obstructive uropathy. No additional intra-abdominal abnormalities Labs Labs: Laboratory Results - last 24 hr 06/29/24 06/29/24 06/29/24 11:29 16:06 17:56 WBC RBC Hgb Hct MCV MCH MCHC RDW Plt Count MPV Immature Gran % (Auto) Neut % (Auto) Lymph % (Auto) [place] % (Auto) Eos % (Auto) Baso % (Auto) Lymph # (Auto) [place] # (Auto) Eos # (Auto) Baso # (Auto) Abs Immat Gran (auto) Absolute Neuts (auto) Absolute Nucleated RBC Nucleated RBC % Sodium Potassium Chloride Carbon Dioxide Anion Gap BUN Creatinine Estim Creat Clear Calc Estimated GFR Glucose POC Capillary Glucose 163 H 146 H Lactic Acid Calcium Magnesium Total Bilirubin AST ALT Alkaline Phosphatase Total Protein Albumin C. difficile (PCR) Negative 06/29/24 06/30/24 06/30/24 20:40 07:10 08:12 WBC 8.6 RBC 3.51 L Hgb 11.2 L Hct 35.7 L MCV 101.7 H MCH 31.9 MCHC 31.4 L RDW 16.8 H Plt Count 223 MPV 11.1 H Immature Gran % (Auto) 0.2 Neut % (Auto) 67.1 Lymph % (Auto) 24.7 [place] % (Auto) 7.3 Eos % (Auto) 0.5 Baso % (Auto) 0.2 Lymph # (Auto) 2.12 [place] # (Auto) 0.6 Eos # (Auto) 0.0 Baso # (Auto) 0.0 Abs Immat Gran (auto) 0.02 Absolute Neuts (auto) 5.8 Absolute Nucleated RBC 0.000 Nucleated RBC % 0.0 Sodium 137 Potassium 3.9 Chloride 105 Carbon Dioxide 23 Anion Gap 9 BUN 46 H D Creatinine 5.88 H Estim Creat Clear Calc Not Reportable Estimated GFR 9 L Glucose 112 H POC Capillary Glucose 156 H 111 H Lactic Acid 0.7 Calcium 8.6 Magnesium 1.7 Total Bilirubin 0.4 AST 29 ALT 18 Alkaline Phosphatase 83 Total Protein 7.0 Albumin 3.7 C. difficile (PCR)
[2024-06-30 11:53] LABS: MRSA (PCR) NOT DETECTED (NOT DETECTE)
[2024-06-30 12:03] LABS: Glucose Point of Care 112 mg/dl (65-105)
--- NOTE | 2024-06-30 13:47 | PCPTNOTE ---
The patient treatment was not able to be completed at this time due to patient out of room for dialysis. Will plan to continue treatment per plan of care.
--- NOTE | 2024-06-30 14:45 | P.PNNP_ITS ---
Progress Note: A&P Assessment and Plan (1) End stage renal disease: Code(s): N18.6 - End stage renal disease Status: Chronic Assessment and Plan: * HD today * eventually transition back to home HD on discharge * follow electrolytes, volume status, and clearance * outpatient dialysis unit = [facility] * primary account services representative = Dr. Markie Ryan (2) Altered mental status: Qualifiers: Altered mental status type: unspecified Qualified Code(s): R41.82 - Altered mental status, unspecified Code(s): R41.82 - Altered mental status, unspecified Status: Acute Assessment and Plan: * slow inmprovement noted * etiology? * stroke/CVA? * worsening demention? * seizure? * other? * Neurology following * CT of head and MRI of brain noted * EEG and Echo results reviewed * on ASA + statin + Eliquis + Keppra * PT/OT as tolerated (3) Anemia: Qualifiers: Anemia type: unspecified type Qualified Code(s): D64.9 - Anemia, unspecified Code(s): D64.9 - Anemia, unspecified Status: Chronic Assessment and Plan: * due to ESRD * H/H at goal * holding Retacrit with dialysis * follow H/H (4) Congestive heart failure: Qualifiers: Heart failure type: diastolic Heart failure chronicity: chronic Q ualified Code(s): I50.32 - Chronic diastolic (congestive) heart failure Code(s): I50.9 - Heart failure, unspecified Status: Chronic Assessment and Plan: * compensated at this time * fluid removal with HD to maintain euvolemia * follow volume status (5) Dementia: Code(s): F03.90 - Unspecified dementia, unspecified severity, without behavioral disturbance, psychotic disturbance, mood disturbance, and anxiety Status: Chronic Assessment and Plan: * known history * continue home medications (6) Insulin dependent diabetes mellitus: Status: Chronic Assessment and Plan: * follow accu-cheks * glycemic control per hospitalist Will continue to follow. L Subjective Date/time seen: 06/30/24 14:45 Interval history: Follow-up for end stage renal disease on hemodialysis. Tolerating dialysis treatment at the time of my visit (seen on HD at 2:35PM); mentation continues to slowly improve in general; no other issues/events overnight or earlier this morning; no apparent distress voiced when seen. Exam 2 Narrative: General: elderly female in NAD Heart: normal S1 and S2; no rub Lungs: clear to auscultation Abdomen: soft, nontender, nondistended, positive bowel sounds Extremities: no cyanosis or clubbing; no edema Skin: warm and intact Objective Data Vital Signs Vital Signs: Vital Signs Temp Pulse Resp BP Pulse Ox O2 Del Method 06/30/24 14:45 70 108/56 L 06/30/24 14:30 69 123/64 06/30/24 14:15 68 112/58 L 06/30/24 14:00 98.2 F 60 18 166/57 H 99 06/30/24 14:00 66 138/67 06/30/24 13:45 63 138/67 06/30/24 13:26 59 L 145/67 H 06/30/24 13:13 98.4 F 60 16 165/70 H 99 06/30/24 12:00 58 L 06/30/24 08:51 97 Room Air 06/30/24 08:00 Room Air 06/30/24 08:00 58 L 06/30/24 06:00 97.9 F 60 16 130/62 100 06/30/24 04:00 60 06/30/24 00:03 59 L 06/29/24 21:41 99.4 F 66 14 149/62 H 98 06/29/24 20:47 64 06/29/24 20:40 66 14 98 Room Air 06/29/24 20:00 68 Intake/Output Intake/Output: Intake & Output 06/27/24 06/28/24 06/29/24 06/30/24 23:59 23:59 23:59 23:59 Intake Total 640 920 440 Output Total 0 800 Balance 640 920 -360 Meds/Results Medications: Active Medications Generic Name Dose Route Start Last Admin Trade Name Freq PRN Reason Stop Dose Admin Apixaban 5 mg 06/28/24 13:40 06/30/24 17:53 Apixaban 5 Mg Tablet PO 5 mg Q12HR SOL Administration Aspirin 81 mg 06/28/24 13:40 06/30/24 17:53 Aspirin 81 Mg Chewable Tablet PO 81 mg DAILY SOL Administration Atorvastatin Calcium 20 mg 06/28/24 21:00 06/29/24 20:47 Atorvastatin 20 Mg Tablet PO 20 mg HS SOL Administration Benzonatate 100 mg 06/28/24 13:32 Benzonatate 100 Mg Capsule PO Q8HR PRN Cough Benztropine Mesylate 2 mg 06/28/24 21:00 06/29/24 20:47 Benztropine Mesylate 1 Mg Tablet PO 2 mg HS SOL Administration Carvedilol 3.125 mg 06/28/24 13:40 06/30/24 18:08 Carvedilol 3.125 Mg Tablet PO Not Given Q12HR SOL Dextrose 12.5 gm 06/28/24 13:54 Dextrose 50% 25 Gm/50 Ml Syringe IV PUSH PRN PRN Hypoglycemia Protocol Dronabinol 5 mg 06/30/24 17:00 06/30/24 18:08 Dronabinol (*Crx) 2.5 Mg Capsule PO 5 mg BID SOL Administration Glucagon 1 mg 06/28/24 13:54 Glucagon For Inj 1 Mg Vial IM PRN PRN Hypoglycemia Protocol Glucose 15 gm 06/28/24 13:54 Glucose Oral Gel 15 Gm Of Glucse In 37.5 Gm Tube PO PRN PRN Hypoglycemia Protocol Albumin Human 50 mls @ 999 mls/hr 06/28/24 06:45 06/28/24 21:24 Albutein IVPB 07/28/24 06:44 999 mls/hr Q10M PRN Administration HYPOTENSION Levetiracetam 500 mg in 100 mls @ 400 mls/hr 06/28/24 22:00 06/30/24 11:28 Keppra Iv IVPB Not Given Q12HR SOL Dextrose 1,000 mls @ 100 mls/hr 06/28/24 13:54 Dextrose 5% 1,000 Ml IVPB PRN PRN Hypoglycemia Protocol Insulin Aspart 2 - 5 units 06/28/24 17:00 06/30/24 18:08 Insulin Aspart (*Bkc) 100 Units/Ml SUB-Q Not Given TIDWM SOL Protocol Pregabalin 150 mg 06/28/24 14:00 06/28/24 14:47 Pregabalin (*Crx) 75 Mg Capsule PO 150 mg TuThSa@1400 SOL Administration Risperidone 2 mg 06/28/24 21:00 06/29/24 20:47 Risperidone 1 Mg Tablet PO 07/28/24 20:59 2 mg HS SOL Administration Radiology Results: ITS Impressions Chest X-Ray 06/27/24 18:17 IMPRESSION: No focal infiltrate or effusion. Head CT 06/27/24 18:25 Impression: No acute intracranial hemorrhage or suspicious mass effect. Chest/Abdomen/Pelvis CT 06/27/24 18:46 IMPRESSION: No acute pathology within the chest. No acute intra-abdominal pathology. Innumerable nonacute findings, as detailed above. Head/Neck CTA 06/27/24 23:17 IMPRESSION: 1. No large vessel occlusion. 2. Percent stenosis per NASCET criteria is 0% on the right, and 28% on the left. Brain MRI 06/28/24 16:08 IMPRESSION: 1. Old lacunar infarct in the right thalamus. 2. Moderate nonspecific cerebral white matter disease and pontine disease, which likely represents chronic small vessel ischemic disease. Abdomen CT 06/30/24 09:56 IMPRESSION: Trace residual contrast in the bilateral renal collecting systems, suggesting delayed excretion (? Poor renal function?). No obstructive uropathy. No additional intra-abdominal abnormalities Labs Labs: Laboratory Tests 06/30/24 08:12 06/30/24 08:12 Lactic Acid 0.7 Calcium 8.6 Magnesium 1.7 Total Bilirubin 0.4 AST 29 ALT 18 Alkaline Phosphatase 83 Total Protein 7.0 Albumin 3.7 Microbiology 06/29/24 17:56 Stool Escherichia coli Shiga Toxins - Final 06/29/24 17:56 Stool Campylobacter Antigen Assay - Final
--- NOTE | 2024-06-30 16:34 | P.PNNEUR_ITS ---
Progress Note: A&P Assessment and Plan (1) Dementia: Code(s): F03.90 - Unspecified dementia, unspecified severity, without behavioral disturbance, psychotic disturbance, mood disturbance, and anxiety Status: Acute (2) Acute metabolic encephalopathy: Code(s): G93.41 - Metabolic encephalopathy Status: Acute (3) Drug-induced Parkinson's disease: Code(s): G21.19 - Other drug induced secondary parkinsonism Status: Acute (4) Schizophrenia: Qualifiers: Schizophrenia type: unspecified Qualified Code(s): F20.9 - Schizophrenia, unspecified Code(s): F20.9 - Schizophrenia, unspecified Status: Acute (5) Insulin dependent diabetes mellitus: Status: Chronic (6) CKD (chronic kidney disease) stage 4, GFR 15-29 ml/min: Code(s): N18.4 - Chronic kidney disease, stage 4 (severe) Status: Acute Plan There has not been any definite seizure observed here. Given the drowsiness I discussed with the nursing staff and we decided that we can hold off pregabalin and respiratory all and Keppra. Patient denies any pain and. Of course if she has any other issues we can introduce any of these drugs once again depending upon the clinical course. In the meanwhile she is due for hemodialysis and hopefully that will also help. Continued observation is recommended. Subjective Date/time seen: 06/30/24 16:34 Interval history: The patient is 73-year-old with history of chronic schizophrenia, diabetes mellitus, chronic kidney disease on hemodialysis, dementia was seen today for follow-up. She continues to be sleepy and confused. [facility] staff have been concerned that she seems to be ordered or sleepy nearly all the time. When I approached her she was sleeping but easily aroused and then smiled and was able to talk to me although she does continue to be somewhat drowsy. She has monotonous voice. She was able to tell me her name and age and did follow 1 step command and sometimes 2 step commands. She could name 5 colors. She could tell me her age. She does have tremor of the hands. She denies any pain. Reviewing her records it was noted the MRI of the brain had shown an old infarct in the right thalamic area and white matter changes in both cerebral hemispheres and also [place]. CT angiogram of the head and neck did not show any significant abnormalities. Patient is currently on Eliquis as well as Keppra. EEG was performed normal. Serum B12 and folic acid level and TSH were also normal. She has been on risperidone all and that has been thought to be the cause for her tremor. She recently had a x-ray of the chest at as well as abdomen and pelvis which did not show any significant abnormalities. Review of Systems Review of Systems: All systems reviewed & are unremarkable except as noted in HPI and below Exam Narrative: Fully conscious alert appears to have monotonous voice. Month bunion type tremor of the hands and feet were noted mild cogwheeling was also noted. Exam head and neck shows no evidence of external trauma. Cranial nerves on individual testing was intact. There is no facial asymmetry. Other cranial nerves within normal limits. Motor system normal power and tone in both upper lower limbs except for mild cogwheeling. Gait was not tested this time. Deep tendon reflexes did not show any significant asymmetry. Since he was in grossly intact. Objective Data Vital Signs Vital Signs: Vital Signs - 24 hr 06/29/24 20:00 06/29/24 20:40 06/29/24 20:47 Temperature Pulse Rate 68 66 64 Respiratory Rate 14 Blood Pressure Pulse Oximetry 98 Oxygen Delivery Room Air 06/29/24 21:41 06/30/24 00:03 06/30/24 04:00 Temperature 99.4 F Pulse Rate 66 59 L 60 Respiratory Rate 14 Blood Pressure 149/62 H Pulse Oximetry 98 Oxygen Delivery 06/30/24 06:00 06/30/24 08:00 06/30/24 08:51 Temperature 97.9 F Pulse Rate 60 58 L Respiratory Rate 16 Blood Pressure 130/62 Pulse Oximetry 100 97 Oxygen Delivery Room Air 06/30/24 13:13 06/30/24 13:26 06/30/24 13:45 Temperature 98.4 F Pulse Rate 60 59 L 63 Respiratory Rate 16 Blood Pressure 165/70 H 145/67 H 138/67 Pulse Oximetry 99 Oxygen Delivery 06/30/24 14:00 06/30/24 14:00 06/30/24 14:15 Temperature 98.2 F Pulse Rate 66 60 68 Respiratory Rate 18 Blood Pressure 138/67 166/57 H 112/58 L Pulse Oximetry 99 Oxygen Delivery 06/30/24 14:30 06/30/24 14:45 06/30/24 15:00 Temperature Pulse Rate 69 70 68 Respiratory Rate Blood Pressure 123/64 108/56 L 111/55 L Pulse Oximetry Oxygen Delivery 06/30/24 15:15 06/30/24 15:30 06/30/24 15:45 Temperature Pulse Rate 74 73 66 Respiratory Rate Blood Pressure 98/54 L 100/51 L 106/50 L Pulse Oximetry Oxygen Delivery 06/30/24 16:00 06/30/24 16:15 Temperature Pulse Rate 66 78 Respiratory Rate Blood Pressure 96/49 L 97/52 L Pulse Oximetry Oxygen Delivery Intake/Output Intake/Output: Intake & Output 06/27/24 06/28/24 06/29/24 06/30/24 23:59 23:59 23:59 23:59 Intake Total 640 920 240 Output Total 0 Balance 640 920 240 Meds/Results Medications: Active Medications Generic Name Dose Route Start Last Admin Trade Name Freq PRN Reason Stop Dose Admin Apixaban 5 mg 06/28/24 13:40 06/29/24 20:47 Apixaban 5 Mg Tablet PO 5 mg Q12HR SOL Administration Aspirin 81 mg 06/28/24 13:40 06/29/24 13:06 Aspirin 81 Mg Chewable Tablet PO Not Given DAILY SOL Atorvastatin Calcium 20 mg 06/28/24 21:00 06/29/24 20:47 Atorvastatin 20 Mg Tablet PO 20 mg HS SOL Administration Benzonatate 100 mg 06/28/24 13:32 Benzonatate 100 Mg Capsule PO Q8HR PRN Cough Benztropine Mesylate 2 mg 06/28/24 21:00 06/29/24 20:47 Benztropine Mesylate 1 Mg Tablet PO 2 mg HS SOL Administration Carvedilol 3.125 mg 06/28/24 13:40 06/29/24 20:47 Carvedilol 3.125 Mg Tablet PO 3.125 mg Q12HR SOL Administration Dextrose 12.5 gm 06/28/24 13:54 Dextrose 50% 25 Gm/50 Ml Syringe IV PUSH PRN PRN Hypoglycemia Protocol Dronabinol 5 mg 06/30/24 17:00 Dronabinol (*Crx) 2.5 Mg Capsule PO BID SOL Glucagon 1 mg 06/28/24 13:54 Glucagon For Inj 1 Mg Vial IM PRN PRN Hypoglycemia Protocol Glucose 15 gm 06/28/24 13:54 Glucose Oral Gel 15 Gm Of Glucse In 37.5 Gm Tube PO PRN PRN Hypoglycemia Protocol Albumin Human 50 mls @ 999 mls/hr 06/28/24 06:45 06/28/24 21:24 Albutein IVPB 07/28/24 06:44 999 mls/hr Q10M PRN Administration HYPOTENSION Levetiracetam 500 mg in 100 mls @ 400 mls/hr 06/28/24 22:00 06/30/24 11:28 Keppra Iv IVPB Not Given Q12HR SOL Dextrose 1,000 mls @ 100 mls/hr 06/28/24 13:54 Dextrose 5% 1,000 Ml IVPB PRN PRN Hypoglycemia Protocol Insulin Aspart 2 - 5 units 06/28/24 17:00 06/30/24 12:23 Insulin Aspart (*Bkc) 100 Units/Ml SUB-Q Not Given TIDWM SOL Protocol Pregabalin 150 mg 06/28/24 14:00 06/28/24 14:47 Pregabalin (*Crx) 75 Mg Capsule PO 150 mg TuThSa@1400 SOL Administration Risperidone 2 mg 06/28/24 21:00 06/29/24 20:47 Risperidone 1 Mg Tablet PO 07/28/24 20:59 2 mg HS SOL Administration Radiology Results: ITS Impressions Chest X-Ray 06/27/24 18:17 IMPRESSION: No focal infiltrate or effusion. Head CT 06/27/24 18:25 Impression: No acute intracranial hemorrhage or suspicious mass effect. Chest/Abdomen/Pelvis CT 06/27/24 18:46 IMPRESSION: No acute pathology within the chest. No acute intra-abdominal pathology. Innumerable nonacute findings, as detailed above. Head/Neck CTA 06/27/24 23:17 IMPRESSION: 1. No large vessel occlusion. 2. Percent stenosis per NASCET criteria is 0% on the right, and 28% on the left. Brain MRI 06/28/24 16:08 IMPRESSION: 1. Old lacunar infarct in the right thalamus. 2. Moderate nonspecific cerebral white matter disease and pontine disease, which likely represents chronic small vessel ischemic disease. Abdomen CT 06/30/24 09:56 IMPRESSION: Trace residual contrast in the bilateral renal collecting systems, suggesting delayed excretion (? Poor renal function?). No obstructive uropathy. No additional intra-abdominal abnormalities Labs Labs: Laboratory Results - last 24 hr 06/29/24 06/29/24 06/30/24 17:56 20:40 07:10 WBC RBC Hgb Hct MCV MCH MCHC RDW Plt Count MPV Immature Gran % (Auto) Neut % (Auto) Lymph % (Auto) [place] % (Auto) Eos % (Auto) Baso % (Auto) Lymph # (Auto) [place] # (Auto) Eos # (Auto) Baso # (Auto) Abs Immat Gran (auto) Absolute Neuts (auto) Absolute Nucleated RBC Nucleated RBC % Sodium Potassium Chloride Carbon Dioxide Anion Gap BUN Creatinine Estim Creat Clear Calc Estimated GFR Glucose POC Capillary Glucose 156 H 111 H Lactic Acid Calcium Magnesium Total Bilirubin AST ALT Alkaline Phosphatase Total Protein Albumin Nasal MRSA (PCR) C. difficile (PCR) Negative 06/30/24 06/30/24 06/30/24 08:12 10:23 11:35 WBC 8.6 RBC 3.51 L Hgb 11.2 L Hct 35.7 L MCV 101.7 H MCH 31.9 MCHC 31.4 L RDW 16.8 H Plt Count 223 MPV 11.1 H Immature Gran % (Auto) 0.2 Neut % (Auto) 67.1 Lymph % (Auto) 24.7 [place] % (Auto) 7.3 Eos % (Auto) 0.5 Baso % (Auto) 0.2 Lymph # (Auto) 2.12 [place] # (Auto) 0.6 Eos # (Auto) 0.0 Baso # (Auto) 0.0 Abs Immat Gran (auto) 0.02 Absolute Neuts (auto) 5.8 Absolute Nucleated RBC 0.000 Nucleated RBC % 0.0 Sodium 137 Potassium 3.9 Chloride 105 Carbon Dioxide 23 Anion Gap 9 BUN 46 H D Creatinine 5.88 H Estim Creat Clear Calc Not Reportable Estimated GFR 9 L Glucose 112 H POC Capillary Glucose 112 H Lactic Acid 0.7 Calcium 8.6 Magnesium 1.7 Total Bilirubin 0.4 AST 29 ALT 18 Alkaline Phosphatase 83 Total Protein 7.0 Albumin 3.7 Nasal MRSA (PCR) Not detected C. difficile (PCR)
[2024-06-30 16:37] LABS: Glucose Point of Care 99 mg/dl (65-105)
[2024-06-30] MEDS: HEPARIN SODIUM 1,000 UNITS/ML VIAL 5000 UNITS IV PUSH (17:06)
[2024-06-30] MEDS: APIXABAN 5 MG TABLET PO ×2 (17:53→20:46)
[2024-06-30] MEDS: ASPIRIN 81 MG CHEWABLE TABLET PO (17:53)
[2024-06-30] MEDS: droNABinol (*CRX) 2.5 MG CAPSULE 5 MG PO (18:08)
[2024-06-30] MEDS: carvediloL 3.125 MG TABLET PO (20:46)
[2024-06-30] MEDS: ATORVASTATIN 20 MG TABLET PO (20:46)
[2024-06-30] MEDS: BENZONATATE 100 MG CAPSULE PO (20:46)
[2024-06-30] MEDS: BENZTROPINE MESYLATE 1 MG TABLET 2 MG PO (20:46)
[2024-06-30 21:05] LABS: Glucose Point of Care 144 mg/dl (65-105)
[2024-07-01] VITALS (11 sets, daily range): BP systolic 156–176; BP diastolic 56–68; PULSE 56–78; RESP 18–20; TEMP 36.5–37; O2SAT 98–100
[2024-07-01 08:18] LABS: Glucose Point of Care 157 mg/dl (65-105)
[2024-07-01 08:50] LABS: Basophils Percent Auto 0.2 % (0.2-1.2); Eosinophils Absolute Auto 0.1 K/mm3 (0-0.3); Eosinophils Percent Auto 0.7 % (0-4.4); Hematocrit 36.8 % (37.0-47.0); Hemoglobin 11.9 g/dL (12.0-15.0); Immature Granulocyte Absolute 0.03 K/mm3 (0.00-0.031); Immature Granulocyte Percent A 0.3 % (0-0.5); Lymphocytes Absolute Auto 2.08 K/mm3 (0.9-3.2); Lymphocytes Percent Auto 22.1 % (18.3-44.2); Mean Corpuscular HGB Conc 32.3 g/dl (32-36); Mean Corpuscular Hemoglobin 32.6 pg (26-34); Mean Corpuscular Volume 100.8 fl (80-100); Mean Platelet Volume 10.9 fl (7.4-10.4); Monocytes Absolute Auto 0.7 K/mm3 (0.1-0.6); Neutrophils Absolute Auto 6.6 K/mm3 (1.3-6.7); Neutrophils Percent Auto 69.7 % (45.5-73.1); Platelet Count Result 236 k/mm3 (150-375); Red Blood Count 3.65 M/mm3 (4.2-5.4); Red Cell Distribution Width 16.7 % (11.5-14.5); White Blood Count 9.4 K/mm3 (4.5-10.0)
[2024-07-01] MEDS: APIXABAN 5 MG TABLET PO ×2 (08:53→20:27)
[2024-07-01] MEDS: carvediloL 3.125 MG TABLET PO ×2 (08:53→20:28)
[2024-07-01] MEDS: ASPIRIN 81 MG CHEWABLE TABLET PO (08:53)
[2024-07-01] MEDS: droNABinol (*CRX) 2.5 MG CAPSULE 5 MG PO (09:02)
[2024-07-01 09:41] LABS: Alanine Aminotransferase 19 U/L (6-35); Alkaline Phosphatase 77 U/L (38-126); Anion Gap 12 mmol/L (4-12); Aspartate Amino Transferase 25 U/L (14-36); Bilirubin,Total 0.5 mg/dL (0.2-1.3); Blood Urea Nitrogen 30 mg/dL (7-17); Calcium 8.9 mg/dL (8.4-10.2); Carbon Dioxide 23 mmol/L (22-30); Chloride 103 mmol/L (98-107); Estimated CRCL calculation 8 ml/min; Estimated Glomerular Filt Rate 11; Glucose 132 mg/dL (65-110); Magnesium 1.9 mg/dL (1.6-2.3); Sodium 138 mmol/L (137-145)
--- NOTE | 2024-07-01 10:45 | P.PNNP_ITS ---
Progress Note: A&P Assessment and Plan (1) End stage renal disease: Code(s): N18.6 - End stage renal disease Status: Chronic Assessment and Plan: * HD yesterday * eventually transition back to home HD on discharge * follow electrolytes, volume status, and clearance * outpatient dialysis unit = [facility] * primary utility assembler = Dr. Markie Ryan (2) Altered mental status: Qualifiers: Altered mental status type: unspecified Qualified Code(s): R41.82 - Altered mental status, unspecified Code(s): R41.82 - Altered mental status, unspecified Status: Acute Assessment and Plan: * improvement noted if not resolved * etiology? * stroke/CVA? * worsening dementia? * seizure? * other? * Neurology following * CT of head and MRI of brain noted * EEG and Echo results reviewed * on ASA + statin + Eliquis + Keppra * PT/OT as tolerated (3) Anemia: Qualifiers: Anemia type: unspecified type Qualified Code(s): D64.9 - Anemia, unspecified Code(s): D64.9 - Anemia, unspecified Status: Chronic Assessment and Plan: * due to ESRD * H/H at goal * holding Retacrit with dialysis * follow H/H (4) Congestive heart failure: Qualifiers: Heart failure type: diastolic Heart failure chronicity: chronic Q ualified Code(s): I50.32 - Chronic diastolic (congestive) heart failure Code(s): I50.9 - Heart failure, unspecified Status: Chronic Assessment and Plan: * compensated at this time * fluid removal with HD to maintain euvolemia * follow volume status (5) Dementia: Code(s): F03.90 - Unspecified dementia, unspecified severity, without behavioral disturbance, psychotic disturbance, mood disturbance, and anxiety Status: Chronic Assessment and Plan: * known history * continue home medications (6) Insulin dependent diabetes mellitus: Status: Chronic Assessment and Plan: * follow accu-cheks * glycemic control per hospitalist Will continue to follow. L Subjective Date/time seen: 07/01/24 10:45 Interval history: Follow-up for end stage renal disease on hemodialysis. Tolerated dialysis treatment yesterday without any issues or problems; she is more responsive in general in comparison to admission but can be somewhat slow to respond at times; no other acute issues/complaints voiced; no apparent distress noted. Exam 2 Narrative: General: elderly female in NAD Heart: normal S1 and S2; no rub Lungs: clear to auscultation Abdomen: soft, nontender, nondistended, positive bowel sounds Extremities: no cyanosis or clubbing; no edema Skin: no rash or nodules Objective Data Vital Signs Vital Signs: Vital Signs Temp Pulse Resp BP Pulse Ox O2 Del Method 07/01/24 09:00 60 Room Air 07/01/24 08:53 78 07/01/24 05:45 97.7 F 58 L 20 176/68 H 100 07/01/24 04:00 56 L 07/01/24 00:00 56 L 06/30/24 20:46 62 06/30/24 20:35 98.4 F 61 20 117/47 L 97 06/30/24 20:00 Room Air 06/30/24 20:00 64 06/30/24 16:54 97.5 F L 66 16 142/62 H 100 06/30/24 16:42 64 109/54 L 06/30/24 16:30 69 101/49 L 06/30/24 16:15 78 97/52 L Intake/Output Intake/Output: Intake & Output 06/28/24 06/29/24 06/30/24 07/01/24 23:59 23:59 23:59 23:59 Intake Total 640 920 440 440 Output Total 0 800 Balance 640 920 -360 440 Meds/Results Medications: Active Medications Generic Name Dose Route Start Last Admin Trade Name Freq PRN Reason Stop Dose Admin Apixaban 5 mg 06/28/24 13:40 07/01/24 08:53 Apixaban 5 Mg Tablet PO 5 mg Q12HR SOL Administration Aspirin 81 mg 06/28/24 13:40 07/01/24 08:53 Aspirin 81 Mg Chewable Tablet PO 81 mg DAILY SOL Administration Atorvastatin Calcium 20 mg 06/28/24 21:00 06/30/24 20:46 Atorvastatin 20 Mg Tablet PO 20 mg HS SOL Administration Benzonatate 100 mg 06/28/24 13:32 06/30/24 20:46 Benzonatate 100 Mg Capsule PO 100 mg Q8HR PRN Administration Cough Benztropine Mesylate 2 mg 06/28/24 21:00 06/30/24 20:46 Benztropine Mesylate 1 Mg Tablet PO 2 mg HS SOL Administration Carvedilol 3.125 mg 06/28/24 13:40 07/01/24 08:53 Carvedilol 3.125 Mg Tablet PO 3.125 mg Q12HR SOL Administration Dextrose 12.5 gm 06/28/24 13:54 Dextrose 50% 25 Gm/50 Ml Syringe IV PUSH PRN PRN Hypoglycemia Protocol Glucagon 1 mg 06/28/24 13:54 Glucagon For Inj 1 Mg Vial IM PRN PRN Hypoglycemia Protocol Glucose 15 gm 06/28/24 13:54 Glucose Oral Gel 15 Gm Of Glucse In 37.5 Gm Tube PO PRN PRN Hypoglycemia Protocol Albumin Human 50 mls @ 999 mls/hr 06/28/24 06:45 06/28/24 21:24 Albutein IVPB 07/28/24 06:44 999 mls/hr Q10M PRN Administration HYPOTENSION Levetiracetam 500 mg in 100 mls @ 400 mls/hr 06/28/24 22:00 06/30/24 11:28 Keppra Iv IVPB Not Given Q12HR SOL Dextrose 1,000 mls @ 100 mls/hr 06/28/24 13:54 Dextrose 5% 1,000 Ml IVPB PRN PRN Hypoglycemia Protocol Insulin Aspart 2 - 5 units 06/28/24 17:00 07/01/24 11:45 Insulin Aspart (*Bkc) 100 Units/Ml SUB-Q Not Given TIDWM SOL Protocol Mirtazapine 15 mg 07/01/24 21:00 Mirtazapine 15 Mg Tablet PO HS SOL Pregabalin 150 mg 06/28/24 14:00 06/28/24 14:47 Pregabalin (*Crx) 75 Mg Capsule PO 150 mg TuThSa@1400 SOL Administration Risperidone 2 mg 06/28/24 21:00 06/29/24 20:47 Risperidone 1 Mg Tablet PO 07/28/24 20:59 2 mg HS SOL Administration Radiology Results: ITS Impressions Chest X-Ray 06/27/24 18:17 IMPRESSION: No focal infiltrate or effusion. Head CT 06/27/24 18:25 Impression: No acute intracranial hemorrhage or suspicious mass effect. Chest/Abdomen/Pelvis CT 06/27/24 18:46 IMPRESSION: No acute pathology within the chest. No acute intra-abdominal pathology. Innumerable nonacute findings, as detailed above. Head/Neck CTA 06/27/24 23:17 IMPRESSION: 1. No large vessel occlusion. 2. Percent stenosis per NASCET criteria is 0% on the right, and 28% on the left. Brain MRI 06/28/24 16:08 IMPRESSION: 1. Old lacunar infarct in the right thalamus. 2. Moderate nonspecific cerebral white matter disease and pontine disease, which likely represents chronic small vessel ischemic disease. Abdomen CT 06/30/24 09:56 IMPRESSION: Trace residual contrast in the bilateral renal collecting systems, suggesting delayed excretion (? Poor renal function?). No obstructive uropathy. No additional intra-abdominal abnormalities Labs Labs: Laboratory Tests 07/01/24 08:44 07/01/24 08:44 Calcium 8.9 Magnesium 1.9 Total Bilirubin 0.5 AST 25 ALT 19 Alkaline Phosphatase 77 Total Protein 8.0 Albumin 4.0 Microbiology 06/29/24 17:56 Stool Escherichia coli Shiga Toxins - Final 06/29/24 17:56 Stool Campylobacter Antigen Assay - Final
[2024-07-01 11:56] LABS: Glucose Point of Care 192 mg/dl (65-105)
--- NOTE | 2024-07-01 15:46 | P.DS_ITS ---
DS: Admitting Diagnosis Discharge Date 06/26/24 Admitting Diagnosis Altered mental status DS: Discharge Diagnosis Discharge Diagnosis (1) Altered mental status: Qualifiers: Altered mental status type: unspecified Qualified Code(s): R41.82 - Altered mental status, unspecified Code(s): R41.82 - Altered mental status, unspecified Status: Acute DS: Summary Hospital Course Hospital Course: 73-year-old female with PMH of insulin-dependent diabetes, schizophrenia, dementia, CHF, ESRD on dialysis who presented to the ER on account of AMS. Kody parsons was confused at bedside and unable to provide history. PER eR note, family noted that patient was not acting herself, noted patient has been staring off in space and not talking to anyone which is not her baseline. ER eval noted Temp 98, LA 85, RR 18, O2sats 99 on rooom air, BP 165/73. labs notable for WBC 8.0, Cr 6.57, K 5.7 repeat 4.9, UA unremarkable, CT head and Abd/pelvis and Chest unremarkable. patient admitted for further eval and care patient having resting tremor on exam. MRI brain showed old lacunar infarct in the right thalamus with non specific white matter and pontine disease, EEG non significant. B12/Folate wnl, ECHo EF 65-70% with grade I diastolic dysfunction. Patient was initially started on Keppra and neurology was consulted and he recommended discontinuing Keppra, risperidone and Pregbalin which was done and patient AMS resolved to her baseline. Patient now discharged home with home health. All three medications were discontinued on discharge. bree will continue follow up with neurology F/u with PCP in 3-5 days F/u with Neurology as instructed Time Spent with Patient Time attestation: Total time spent providing and/or coordinating discharge services: DS: Data Data Completed and Pending Labs on day of discharge: Labs from last 24 hours 07/01/24 07/01/24 07/01/24 11:44 08:44 08:07 WBC 9.4 RBC 3.65 L Hgb 11.9 L Hct 36.8 L MCV 100.8 H MCH 32.6 MCHC 32.3 RDW 16.7 H Plt Count 236 MPV 10.9 H Immature Gran % (Auto) 0.3 Neut % (Auto) 69.7 Lymph % (Auto) 22.1 [place] % (Auto) 7.0 Eos % (Auto) 0.7 Baso % (Auto) 0.2 Lymph # (Auto) 2.08 [place] # (Auto) 0.7 H Eos # (Auto) 0.1 Baso # (Auto) 0.0 Abs Immat Gran (auto) 0.03 Absolute Neuts (auto) 6.6 Absolute Nucleated RBC 0.000 Nucleated RBC % 0.0 Sodium 138 Potassium 4.0 Chloride 103 Carbon Dioxide 23 Anion Gap 12 BUN 30 H D Creatinine 4.63 H Estim Creat Clear Calc 8 Estimated GFR 11 L Glucose 132 H POC Capillary Glucose 192 H 157 H Calcium 8.9 Magnesium 1.9 Total Bilirubin 0.5 AST 25 ALT 19 Alkaline Phosphatase 77 Total Protein 8.0 Albumin 4.0 06/30/24 06/30/24 20:38 16:34 WBC RBC Hgb Hct MCV MCH MCHC RDW Plt Count MPV Immature Gran % (Auto) Neut % (Auto) Lymph % (Auto) [place] % (Auto) Eos % (Auto) Baso % (Auto) Lymph # (Auto) [place] # (Auto) Eos # (Auto) Baso # (Auto) Abs Immat Gran (auto) Absolute Neuts (auto) Absolute Nucleated RBC Nucleated RBC % Sodium Potassium Chloride Carbon Dioxide Anion Gap BUN Creatinine Estim Creat Clear Calc Estimated GFR Glucose POC Capillary Glucose 144 H 99 Calcium Magnesium Total Bilirubin AST ALT Alkaline Phosphatase Total Protein Albumin Preliminary micro results at discharge 06/27/24 19:01 Blood Culture - Preliminary Blood 06/27/24 19:01 Blood Culture - Preliminary Blood Discharge Plan Discharge Attending physician on discharge: Vanessa Godfrey Consulting providers: Evelina Malloy; Opal Alonzo; Danny Gao Discharging Clinician: Vanessa Godfrey Anticipated Discharge Date/Time: 07/01/24 15:42 Patient Disposition: Home Health Service Activity: as tolerated Diet: as tolerated Discharge Instructions: Per Care Coordination. Patient to have [facility] for RN/PT/OT eval and treat [phone]. They will contact patient to schedule first visit. Patient Instructions: Antibiotic Form Patient Language: Syrian Stand Alone Forms: General Discharge Information Follow-up/Referrals: Nilo,Cherelle Butterfield MD [Primary Care Provider] - (F/u with PCP in 3-5 days ) Evelina Malloy MD [Physician] - (F/u with PCP in 3-5 days ) Opal Alonzo MD [Physician] - (F/u with PCP in 3-5 days ) Discharge Medications: Continued atorvastatin 40 mg tablet 20 mg PO HS ferrous sulfate 325 mg (65 mg iron) Tablet 325 mg PO DAILY acetaminophen 325 mg Tablet 650 mg PO Q6H PRN (Reason: Pain) insulin glargine [Lantus Solostar U-100 Insulin] 100 unit/mL (3 mL) insulin pen 18 unit SUBCUT HS multivitamin Tablet 1 tablet PO DAILY lidocaine 5 % Adhesive Patch,Medicated 2 patch TOPICAL DAILY PRN (Reason: Back Pain) Rx Instructions: to bilateral lower back insulin lispro 100 unit/mL Insulin Pen 1 - 4 sliding scale dose SUBCUT USEASDIRECTD Rx Instructions: 150 or less: no insulin 151-200: 1 unit 201-250: 2 units 251-300: 3 units greater than 300: 4 units carvedilol [Coreg] 3.125 mg Tablet 3.125 mg PO Q12HR Qty: 60 2RF albuterol sulfate 90 mcg/actuation HFA aerosol inhaler 2 inh INHALATION Q4H PRN (Reason: Shortness Of Breath Or Wheezing) Eliquis 5 mg Tablet 5 mg PO Q12HR Qty: 60 0RF benzonatate 100 mg Capsule 100 mg PO Q8HR PRN (Reason: Cough) Qty: 30 0RF tramadol 25 mg tablet 25 mg PO Q6H PRN (Reason: pain) pantoprazole 40 mg tablet,delayed release (DR/EC) 40 mg PO Q12H aspirin 81 mg tablet,chewable 81 mg PO DAILY nifedipine 60 mg tablet extended release 60 mg PO HS hydralazine 25 mg tablet 25 mg PO .q12 benztropine 2 mg tablet 2 mg PO HS calcium phos,dibas-vitamin D3 77-400 mg-unit tablet 1 tablet PO WEEKLY Discontinued pregabalin 150 mg capsule 150 mg PO .COMPLEX Rx Instructions: 150 mg orally three times per week on dialysis days; risperidone 2 mg tablet 2 mg PO HS Qty: 30 1RF Date of admission: 06/28/24 07:18 Primary Care Provider: Nilo,Cherelle Butterfield Admitting Provider: Hopen,Tahmina J. Attending physician on admission: Tahmina Owens Condition: Stable
[2024-07-01 17:02] LABS: Glucose Point of Care 145 mg/dl (65-105)
--- NOTE | 2024-07-01 17:08 | PC.NURSE ---
[employer] Driver, Dr. Malloy, has verified it is okay to discharge patient home with daughter. Agueda called and updated.
[2024-07-01] MEDS: MIRTAZAPINE 15 MG TABLET PO (20:27)
[2024-07-01] MEDS: BENZONATATE 100 MG CAPSULE PO (20:27)
[2024-07-01] MEDS: ATORVASTATIN 20 MG TABLET PO (20:28)
[2024-07-01] MEDS: BENZTROPINE MESYLATE 1 MG TABLET 2 MG PO (20:28)
[2024-07-01 21:17] LABS: Glucose Point of Care 195 mg/dl (65-105)
[2024-07-02] VITALS (25 sets, daily range): BP systolic 76–187; BP diastolic 46–72; PULSE 55–79; RESP 16–18; TEMP 36.2–37.5; O2SAT 99–100
[2024-07-02 08:14] LABS: Glucose Point of Care 129 mg/dl (65-105)
--- NOTE | 2024-07-02 10:27 | P.PNNP_ITS ---
Progress Note: A&P Assessment and Plan (1) End stage renal disease: Code(s): N18.6 - End stage renal disease Status: Chronic Assessment and Plan: * HD was done on . * Patient is due for dialysis today. Will do a treatment before she goes if she is discharged * Volume status looks okay. * Potassium was 4 yesterday * outpatient dialysis unit = [facility] * primary speech pathologist assistant = Dr. Markie Ryan (2) Altered mental status: Qualifiers: Altered mental status type: unspecified Qualified Code(s): R41.82 - Altered mental status, unspecified Code(s): R41.82 - Altered mental status, unspecified Status: Acute Assessment and Plan: * improvement noted if not resolved * etiology? * stroke/CVA? * worsening dementia? * seizure? * other? * Neurology following * CT of head and MRI of brain noted * EEG and Echo results reviewed * on ASA + statin + Eliquis + Keppra * Patient has significant dementia. * Seems somewhat lethargic today. She may just be exhausted from yesterday's activities. I talked with nurse and she says that she has was like this day before yesterday. It is hard to know what her baseline is. Will defer to hospitalist concerning the mental status. * PT/OT as tolerated (3) Anemia: Qualifiers: Anemia type: unspecified type Qualified Code(s): D64.9 - Anemia, unspecified Code(s): D64.9 - Anemia, unspecified Status: Chronic Assessment and Plan: * due to ESRD * H/H above 11. * holding Retacrit with dialysis until it comes down in to the 10s * follow H/H (4) Congestive heart failure: Qualifiers: Heart failure type: diastolic Heart failure chronicity: chronic Qualified Code(s): I50.32 - Chronic diastolic (congestive) heart failure Code(s): I50.9 - Heart failure, unspecified Status: Chronic Assessment and Plan: * this looks compensated * fluid removal with HD to maintain euvolemia * follow volume status (5) Dementia: Code(s): F03.90 - Unspecified dementia, unspecified severity, without behavioral distur bance, psychotic disturbance, mood disturbance, and anxiety Status: Chronic Assessment and Plan: * known history * waxing and waning mental status it seems. * continue home medications (6) Insulin dependent diabetes mellitus: Status: Chronic Assessment and Plan: * follow accu-cheks * glycemic control per hospitalist Subjective Date/time seen: 07/02/24 10:27 Interval history: Patient is somewhat lethargic today. I talked with Nursing. Yesterday she was unusually active and walking in the halls. Last evening she was somewhat confused so discharge was delayed. Exam Narrative: General: elderly female somewhat lethargic but opens her eyes and waves to me. Heart: normal S1 and S2; no rub or gallop Lungs: clear bilaterally Abdomen: soft, nontender, nondistended, positive bowel sounds Extremities: no cyanosis or clubbing; no edema Skin: no rash Objective Data Vital Signs Vital Signs: Vital Signs - 24 hr 07/01/24 12:00 07/01/24 14:00 07/01/24 16:00 Temperature 98.1 F Pulse Rate 59 L 65 65 Respiratory Rate 18 Blood Pressure 163/56 H Pulse Oximetry 98 Oxygen Delivery 07/01/24 20:00 07/01/24 20:00 07/01/24 20:28 Temperature Pulse Rate 62 64 Respiratory Rate Blood Pressure Pulse Oximetry Oxygen Delivery Room Air 07/01/24 22:00 07/02/24 00:00 07/02/24 04:00 Temperature 98.6 F Pulse Rate 65 55 L 59 L Respiratory Rate 18 Blood Pressure 156/63 H Pulse Oximetry 99 Oxygen Delivery 07/02/24 06:00 Temperature 97.2 F L Pulse Rate 62 Respiratory Rate 18 Blood Pressure 187/63 H Pulse Oximetry 99 Oxygen Delivery Intake/Output Intake/Output: Intake & Output 06/29/24 06/30/24 07/01/24 07/02/24 23:59 23:59 23:59 23:59 Intake Total 920 440 680 Output Total 0 800 Balance 920 -360 680 Meds/Results Medications: Active Medications Generic Name Dose Route Start Last Admin Trade Name Freq PRN Reason Stop Dose Admin Apixaban 5 mg 06/28/24 13:40 07/02/24 08:50 Apixaban 5 Mg Tablet PO 5 mg Q12HR SOL Administration Aspirin 81 mg 06/28/24 13:40 07/02/24 08:50 Aspirin 81 Mg Chewable Tablet PO 81 mg DAILY SOL Administration Atorvastatin Calcium 20 mg 06/28/24 21:00 07/01/24 20:28 Atorvastatin 20 Mg Tablet PO 20 mg HS SOL Administration Benzonatate 100 mg 06/28/24 13:32 07/01/24 20:27 Benzonatate 100 Mg Capsule PO 100 mg Q8HR PRN Administration Cough Benztropine Mesylate 2 mg 06/28/24 21:00 07/01/24 20:28 Benztropine Mesylate 1 Mg Tablet PO 2 mg HS SOL Administration Carvedilol 3.125 mg 06/28/24 13:40 07/02/24 08:50 Carvedilol 3.125 Mg Tablet PO 3.125 mg Q12HR SOL Administration Dextrose 12.5 gm 06/28/24 13:54 Dextrose 50% 25 Gm/50 Ml Syringe IV PUSH PRN PRN Hypoglycemia Protocol Glucagon 1 mg 06/28/24 13:54 Glucagon For Inj 1 Mg Vial IM PRN PRN Hypoglycemia Protocol Glucose 15 gm 06/28/24 13:54 Glucose Oral Gel 15 Gm Of Glucse In 37.5 Gm Tube PO PRN PRN Hypoglycemia Protocol Hydralazine HCl 25 mg 07/02/24 09:00 07/02/24 08:55 Hydralazine Hcl 25 Mg Tablet PO 25 mg Q12HR SOL Administration Albumin Human 50 mls @ 999 mls/hr 06/28/24 06:45 06/28/24 21:24 Albutein IVPB 07/28/24 06:44 999 mls/hr Q10M PRN Administration HYPOTENSION Levetiracetam 500 mg in 100 mls @ 400 mls/hr 06/28/24 22:00 06/30/24 11:28 Keppra Iv IVPB Not Given Q12HR SOL Dextrose 1,000 mls @ 100 mls/hr 06/28/24 13:54 Dextrose 5% 1,000 Ml IVPB PRN PRN Hypoglycemia Protocol Insulin Aspart 2 - 5 units 06/28/24 17:00 07/02/24 08:49 Insulin Aspart (*Bkc) 100 Units/Ml SUB-Q Not Given [facility]WM [facility] Protocol Mirtazapine 15 mg 07/01/24 21:00 07/01/24 20:27 Mirtazapine 15 Mg Tablet PO 15 mg HS SOL Administration Nifedipine 60 mg 07/02/24 21:00 Nifedipine 30 Mg Tab.Er.24 PO HS SOL Pregabalin 150 mg 06/28/24 14:00 06/28/24 14:47 Pregabalin (*Crx) 75 Mg Capsule PO 150 mg TuThSa@1400 SOL Administration Risperidone 2 mg 06/28/24 21:00 06/29/24 20:47 Risperidone 1 Mg Tablet PO 07/28/24 20:59 2 mg HS SOL Administration Radiology Results: ITS Impressions Chest X-Ray 06/27/24 18:17 IMPRESSION: No focal infiltrate or effusion. Head CT 06/27/24 18:25 Impression: No acute intracranial hemorrhage or suspicious mass effect. Chest/Abdomen/Pelvis CT 06/27/24 18:46 IMPRESSION: No acute pathology within the chest. No acute intra-abdominal pathology. Innumerable nonacute findings, as detailed above. Head/Neck CTA 06/27/24 23:17 IMPRESSION: 1. No large vessel occlusion. 2. Percent stenosis per NASCET criteria is 0% on the right, and 28% on the left. Brain MRI 06/28/24 16:08 IMPRESSION: 1. Old lacunar infarct in the right thalamus. 2. Moderate nonspecific cerebral white matter disease and pontine disease, which likely represents chronic small vessel ischemic disease. Abdomen CT 06/30/24 09:56 IMPRESSION: Trace residual contrast in the bilateral renal collecting systems, suggesting delayed excretion (? Poor renal function?). No obstructive uropathy. No additional intra-abdominal abnormalities Labs Labs: Laboratory Results - last 24 hr 07/01/24 07/01/24 07/01/24 11:44 16:55 21:07 POC Capillary Glucose 192 H 145 H 195 H 07/02/24 07:42 POC Capillary Glucose 129 H
--- NOTE | 2024-07-02 10:45 | PCSTNOTE ---
attempted ST x2 on this date; pt would not arouse despite verbal and tactile stim. not able to tx.
--- NOTE | 2024-07-02 12:02 | PC.NURSE ---
Patient stated she was sleeping when attempting to provide with morning medications. Patient educated on blood pressure levels. Patient requires reeducation r/t hx of dementia. Hospitalist made aware. Will reattempt medication once patient is more awake
[2024-07-02 12:05] LABS: Glucose Point of Care 121 mg/dl (65-105)
[2024-07-02 16:44] LABS: Glucose Point of Care 78 mg/dl (65-105)
[2024-07-02] MEDS: HEPARIN SODIUM 1,000 UNITS/ML VIAL 5000 UNITS IV PUSH (17:07)
[2024-07-02] MEDS: ASPIRIN 81 MG CHEWABLE TABLET PO (17:53)
[2024-07-02] MEDS: carvediloL 3.125 MG TABLET PO (17:54)
[2024-07-02] MEDS: hydrALAZINE HCL 25 MG TABLET PO (17:54)
[2024-07-02] MEDS: APIXABAN 5 MG TABLET PO (17:54)
--- OUTSIDE RECORDS SUMMARY | 2024-07-04 03:54 | XMS_ITS ---
Author Name Markie Ryan Address [address] [place] [address] Phone [phone] Organization [facility], NA DOCUMENT DISCLAIMER Multiple document versions may exist, please be sure you review the latest version. The information in the [facility] Progress Note Document represents a providers documented clinical note containing certain health and medical information. It may not contain the complete medical history for the patient and should be independently verified. The represented time in the document is Eastern Time PROVIDER ROUNDING NOTE COMPREHENSIVE Patient:?Barbara?L?Chakraborty,?1950,?73y,?F Dialysis?Location:?[place]?[facility]?-?[place]?[facility] Attending?Transport Tech:?Reza Service?Date:?03/03/2024 Service?Provider:?Markie?Shelby,? I?met?face?to?face?with?the?patient?today. OVERVIEW The?patient?presented?with?ESRD?on?dialysis Primary?cause?of?renal?failure:?Hypertensive?chronic?kidney? disease?with?stage?1?through?stage?4?chronic?kidney?dis ease,?or?unspecified?chronic?kidney?disease Comments:?new?hd?start,?dm/htn,?underlying?schizoaffective?disorder doing?better?today,?last?labs?good hgb?improved,?no?reported?hypotension Medications?and?labs?reviewed. LAST?HOSPITALIZATION Discharge?Diagnosis:?K92.2?Gastrointestinal?hemorrhage,?unspecified Admission?Date?01/29/24 Discharge?Date?02/01/24 DIALYSIS?PRESCRIPTION ??IHD?3x?Week?Start?date:?03/01/24 ??Dialyzer:?180NRe?Optiflux ??BFR:?350 ??DFR:?Autoflow?2 ??Potassium:?2.0 ??Sodium:?137 ??EDW:?61 ??Duration:?3:30 ??Calcium:?2.5 ??Bicarb:?35 ??Rx?updated?on:?02/28/2024 TREATMENT?ASSESSMENT Blood?pressure?controlled.?No?changes?indicated.? BP?Sit?Pre ??02/27/2024:?178/82 ??02/25/2024:?149/68 ??02/23/2024:?154/60 BP?Stand?Post ??02/27/2024:?148/74 ??02/25/2024:?127/59 BP?Sit?Post ??02/27/2024:?162/65 ??02/25/2024:?138/58 ??02/23/2024:?138/74 Tx?Duration ??02/27/2024:?2:55 ??02/25/2024:?3:34 ??02/23/2024:?3:31 Missed?Treatments 0?-?last?30?days 1?-?last?60?days 7/16?-?recent FLUID?ASSESSMENT Fluid?status?acceptable.?Interdialytic?weight?gain?acceptable.?No ?changes?indicated.? EDW?(kg) ??02/27/2024:?59.9 ??02/25/2024:?60.5 ??02/23/2024:?60.5 Weight?Pre?(kg) ??02/27/2024:?63.6 ??02/25/2024:?60.4 ??02/23/2024:?62.9 Weight?Post?(kg) ??02/27/2024:?62.0 ??02/25/2024:?59.9 ??02/23/2024:?61.2 PWV?(kg) ??02/27/2024:?2.1 ??02/25/2024:?-0.6 ??02/23/2024:?0.7 UF?Rate?(mL/kg/hr) ??02/27/2024:?8.8 ??02/25/2024:?2.3 ??02/23/2024:?7.9 ADEQUACY?ASSESSMENT Adequacy?target?met.?Prescription?compliance?acceptable.? spKt/V,?URR ??02/11/2024:?1.96,?82.0 ??01/07/2024:?1.53,?76.0 ??12/15/2023:?1.58,?76.0 ACCESS?ASSESSMENT ??Access?Type:?CVCatheter ??Access?SubType:?Tunneled ??Access?Status:?Active?(In?Use)?-?10/27/2023 ??Access?Location:?Chest ??Placed:?10/16/2023 Vascular?access?reviewed. ANEMIA?ASSESSMENT HGB?at?goal.?Iron?parameters?acceptable.?GARFIELD?dose?adequate.& #160;No?changes?indicated.? HGB,?TSAT ??02/25/2024:?11.0,?- ??02/18/2024:?10.5,?- ??02/11/2024:?10.9,?24.0 ?? Ferritin ??02/11/2024:?308.0 ??10/29/2023:?203.0 Mircera,?IVP?(mcg) ??02/16/2024:?100 ??02/02/2024:?100 ??01/19/2024:?100 Iron?Sucrose?(Venofer)?(mg) ??01/23/2024:?100 ??01/16/2024:?100 ??01/09/2024:?100 BMM?ASSESSMENT PTH?controlled.?Calcium?controlled.?Phosphorus?controlled.?BMM?me ds?adherence?acceptable.?No?changes?indicated.? PTH,?Intact ??02/11/2024:?314.0 ??12/10/2023:?351.0 ??10/29/2023:?297.0 ?? Calcium,?Phosphorus ??02/11/2024:?9.3,?4.2 ??01/07/2024:?8.8,?3.7 ??12/10/2023:?8.9,?4.6 Vitamin?D?(Calcitriol)?Oral?(mcg) ??02/27/2024:?0.25 ??02/25/2024:?0.25 ??02/23/2024:?0.25 NUTRITION?ASSESSMENT Potassium?controlled.?Albumin?controlled.?No?changes?indicated.? Potassium,?Albumin ??02/11/2024:?4.2,?4.0 ??01/07/2024:?4.3,?3.7 ??12/10/2023:?4.9,?3.5 ?? eNPCR ??02/11/2024:?0.93 ??01/07/2024:?0.64 ??12/15/2023:?0.78 PHYSICAL?EXAM Exam?Performed.?Vital?Signs?Reviewed.?Lungs?-?Clear.?CV&#160 ;-?RRR.?EXT?-?1+?edema. DIAGNOSIS Chief?Complaint:?N18.6?End?stage?renal?disease Patient?data?updated?03/03/2024?at?12:47?PM Signed?By:?Shelby,?Markie???on?03/03/2024?12:48:51?PM END OF DOCUMENT
--- OUTSIDE RECORDS SUMMARY | 2024-07-04 03:54 | XMS_ITS ---
Author Name Lupe Velasquez Address [address] [place], [place] [id number] Phone [phone] Organization [facility], NA DOCUMENT DISCLAIMER Multiple document versions may exist, please be sure you review the latest version. The information in the [facility] Progress Note Document represents a providers documented clinical note containing certain health and medical information. It may not contain the complete medical history for the patient and should be independently verified. The represented time in the document is Eastern Time PROVIDER ROUNDING NOTE BASIC Patient:?Barbara?L?Chakraborty,?1950,?73y,?F Dialysis?Location:?[place]?[facility]?-?[place]?[facility] Attending?Steel Plate Printer:?Markie?Shelby Service?Date:?02/16/2024 Service?Provider:?Lupe?Eva,?CLOTH MEASURER I?met?face?to?face?with?the?patient?today. OVERVIEW The?patient?presented?with?ESRD?on?dialysis Primary?cause?of?renal?failure:?Hypertensive?chronic?kidney? disease?with?stage?1?through?stage?4?chronic?kidney?dis ease,?or?unspecified?chronic?kidney?disease Comments:?new?hd?start,?dm/htn,?underlying?schizoaffective?disorder awake?and?alert?today,?no?new?issues?reported,?iron?on& #160;hold,?increase?micera?prn chronic?UE?tremors,?unlikely?a?candidate?for?alternate?access Seen?on?dialysis?tolerating?well? Medications?and?labs?reviewed. LAST?HOSPITALIZATION Discharge?Diagnosis:?K92.2?Gastrointestinal?hemorrhage,?unspecified Admission?Date?01/29/24 Discharge?Date?02/01/24 DIALYSIS?PRESCRIPTION ??IHD?3x?Week?Start?date:?02/16/24 ??Dialyzer:?180NRe?Optiflux ??BFR:?350 ??DFR:?Autoflow?2 ??Potassium:?2.0 ??Sodium:?137 ??EDW:?60 ??Duration:?3:30 ??Calcium:?2.5 ??Bicarb:?35 ??Rx?updated?on:?02/14/2024 TREATMENT?ASSESSMENT BP?Stand?Pre ??02/13/2024:?109/58 BP?Sit?Pre ??02/13/2024:?102/55 ??02/11/2024:?185/87 ??02/09/2024:?156/62 BP?Stand?Post ??02/13/2024:?159/67 ??02/09/2024:?149/71 BP?Sit?Post ??02/13/2024:?151/67 ??02/11/2024:?143/81 ??02/09/2024:?169/79 Tx?Duration ??02/13/2024:?3:33 ??02/11/2024:?3:32 ??02/09/2024:?3:34 Missed?Treatments 0?-?last?30?days 2?-?last?60?days 7/16?-?recent FLUID?ASSESSMENT EDW?(kg) ??02/13/2024:?60.5 ??02/11/2024:?60.5 ??02/09/2024:?60.5 Weight?Pre?(kg) ??02/13/2024:?60.6 ??02/11/2024:?62.5 ??02/09/2024:?61.9 Weight?Post?(kg) ??02/13/2024:?60.7 ??02/11/2024:?60.9 ??02/09/2024:?60.6 PWV?(kg) ??02/13/2024:?0.2 ??02/11/2024:?0.4 ??02/09/2024:?0.1 UF?Rate?(mL/kg/hr) ??02/13/2024:?-0.5 ??02/11/2024:?7.4 ??02/09/2024:?6 ADEQUACY?ASSESSMENT spKt/V,?URR ??02/11/2024:?1.96,?82.0 ??01/07/2024:?1.53,?76.0 ??12/15/2023:?1.58,?76.0 ACCESS?ASSESSMENT ??Access?Type:?CVCatheter ??Access?SubType:?Tunneled ??Access?Status:?Active?(In?Use)?-?10/27/2023 ??Access?Location:?Chest ??Placed:?10/16/2023 ANEMIA?ASSESSMENT HGB,?TSAT ??02/11/2024:?10.9,?24.0 ??02/04/2024:?10.0,?- ??01/28/2024:?7.6,?- ?? Ferritin ??02/11/2024:?308.0 ??10/29/2023:?203.0 Mircera,?IVP?(mcg) ??02/02/2024:?100 ??01/19/2024:?100 Iron?Sucrose?(Venofer)?(mg) ??01/23/2024:?100 ??01/16/2024:?100 ??01/09/2024:?100 BMM?ASSESSMENT PTH,?Intact ??02/11/2024:?314.0 ??12/10/2023:?351.0 ??10/29/2023:?297.0 ?? Calcium,?Phosphorus ??02/11/2024:?9.3,?4.2 ??01/07/2024:?8.8,?3.7 ??12/10/2023:?8.9,?4.6 Vitamin?D?(Calcitriol)?Oral?(mcg) ??02/13/2024:?0.25 ??02/11/2024:?0.25 ??02/09/2024:?0.25 NUTRITION?ASSESSMENT Potassium,?Albumin ??02/11/2024:?4.2,?4.0 ??01/07/2024:?4.3,?3.7 ??12/10/2023:?4.9,?3.5 ?? eNPCR ??02/11/2024:?0.93 ??01/07/2024:?0.64 ??12/15/2023:?0.78 DIAGNOSIS Chief?Complaint:?N18.6?End?stage?renal?disease Patient?data?updated?02/16/2024?at?2:25?PM Signed?By:?Eva,?Lupe,?CLOTH MEASURER??on?02/16/2024?2:26:09 PM END OF DOCUMENT
--- OUTSIDE RECORDS SUMMARY | 2024-07-04 03:54 | XMS_ITS ---
Author Name Lupe Velasquez Address [address] [place], [place] [id number] Phone [phone] Organization [facility], NA DOCUMENT DISCLAIMER Multiple document versions may exist, please be sure you review the latest version. The information in the [facility] Progress Note Document represents a providers documented clinical note containing certain health and medical information. It may not contain the complete medical history for the patient and should be independently verified. The represented time in the document is Eastern Time PROVIDER ROUNDING NOTE BASIC Patient:?Barbara?L?Chakraborty,?1950,?73y,?F Dialysis?Location:?[place]?[facility]?-?[place]?[facility] Attending?Enrichment Assistant:?Markie?Shelby Service?Date:?03/29/2024 Service?Provider:?Lupe?Eva,?FINANCIAL ECONOMIST I?met?face?to?face?with?the?patient?today. OVERVIEW The?patient?presented?with?ESRD?on?dialysis Primary?cause?of?renal?failure:?Hypertensive?chronic?kidney? disease?with?stage?1?through?stage?4?chronic?kidney?dis ease,?or?unspecified?chronic?kidney?disease Comments:?new?hd?start,?dm/htn,?underlying?schizoaffective?disorder doing?ok,?labs?good,?bp?has?been?controlled Seen?on?dialysis?tolerating?well? Medications?and?labs?reviewed. LAST?HOSPITALIZATION Discharge?Diagnosis:?K92.2?Gastrointestinal?hemorrhage,?unspecified Admission?Date?01/29/24 Discharge?Date?02/01/24 DIALYSIS?PRESCRIPTION ??IHD?3x?Week?Start?date:?03/29/24 ??Dialyzer:?180NRe?Optiflux ??BFR:?350 ??DFR:?Autoflow?2 ??Potassium:?2.0 ??Sodium:?137 ??EDW:?62.1 ??Duration:?3:15 ??Calcium:?2.5 ??Bicarb:?35 ??Rx?updated?on:?03/27/2024 TREATMENT?ASSESSMENT BP?Stand?Pre ??03/24/2024:?162/75 BP?Sit?Pre ??03/26/2024:?165/79 ??03/24/2024:?162/70 ??03/22/2024:?135/60 BP?Stand?Post ??03/26/2024:?143/60 ??03/24/2024:?131/60 ??03/22/2024:?135/59 BP?Sit?Post ??03/26/2024:?131/69 ??03/24/2024:?140/71 ??03/22/2024:?111/54 Tx?Duration ??03/26/2024:?2:53 ??03/24/2024:?2:56 ??03/22/2024:?3:19 Missed?Treatments 1?-?last?30?days 1?-?last?60?days 9/10?-?recent FLUID?ASSESSMENT EDW?(kg) ??03/26/2024:?61.2 ??03/24/2024:?61.2 ??03/22/2024:?61.2 Weight?Pre?(kg) ??03/26/2024:?63.0 ??03/24/2024:?64.7 ??03/22/2024:?61.4 Weight?Post?(kg) ??03/26/2024:?63.0 ??03/24/2024:?62.5 ??03/22/2024:?62.0 PWV?(kg) ??03/26/2024:?1.8 ??03/24/2024:?1.3 ??03/22/2024:?0.8 UF?Rate?(mL/kg/hr) ??03/26/2024:?0 ??03/24/2024:?12 ??03/22/2024:?-2.9 ADEQUACY?ASSESSMENT spKt/V,?URR ??03/10/2024:?1.62,?76.0 ??02/11/2024:?1.96,?82.0 ??01/07/2024:?1.53,?76.0 ACCESS?ASSESSMENT ??Access?Type:?CVCatheter ??Access?SubType:?Tunneled ??Access?Status:?Active?(In?Use)?-?10/27/2023 ??Access?Location:?Chest ??Placed:?10/16/2023 ANEMIA?ASSESSMENT HGB,?TSAT ??03/24/2024:?10.7,?- ??03/17/2024:?11.6,?- ??03/10/2024:?11.9,?17.0 ?? Ferritin ??02/11/2024:?308.0 ??10/29/2023:?203.0 Mircera,?IVP?(mcg) ??03/03/2024:?100 ??02/16/2024:?100 ??02/02/2024:?100 Iron?Sucrose?(Venofer)?(mg) ??01/23/2024:?100 ??01/16/2024:?100 ??01/09/2024:?100 BMM?ASSESSMENT PTH,?Intact ??02/11/2024:?314.0 ??12/10/2023:?351.0 ??10/29/2023:?297.0 ?? Calcium,?Phosphorus ??03/10/2024:?9.2,?3.3 ??02/11/2024:?9.3,?4.2 ??01/07/2024:?8.8,?3.7 Vitamin?D?(Calcitriol)?Oral?(mcg) ??03/26/2024:?0.25 ??03/24/2024:?0.25 ??03/22/2024:?0.25 NUTRITION?ASSESSMENT Potassium,?Albumin ??03/10/2024:?4.2,?3.9 ??02/11/2024:?4.2,?4.0 ??01/07/2024:?4.3,?3.7 ?? eNPCR ??03/10/2024:?0.91 ??02/11/2024:?0.93 ??01/07/2024:?0.64 DIAGNOSIS Chief?Complaint:?N18.6?End?stage?renal?disease Patient?data?updated?03/29/2024?at?2:17?PM Signed?By:?Eva,?Lupe,?FINANCIAL ECONOMIST??on?03/29/2024?4:19:23 PM END OF DOCUMENT
--- OUTSIDE RECORDS SUMMARY | 2024-07-04 03:54 | XMS_ITS ---
Author Name Markie Ryan Address [address] [place] [address] Phone [phone] Organization [facility], NA DOCUMENT DISCLAIMER Multiple document versions may exist, please be sure you review the latest version. The information in the [facility] Progress Note Document represents a providers documented clinical note containing certain health and medical information. It may not contain the complete medical history for the patient and should be independently verified. The represented time in the document is Eastern Time PROVIDER ROUNDING NOTE COMPREHENSIVE Patient:?Barbara?L?Chakraborty,?1950,?73y,?F Dialysis?Location:?[place]?-?[place]?[facility] Attending?Qc Scientist:?Reza Service?Date:?03/22/2024 Service?Provider:?Markie?Shelby,? I?met?face?to?face?with?the?patient?today. OVERVIEW The?patient?presented?with?ESRD?on?dialysis Primary?cause?of?renal?failure:?Hypertensive?chronic?kidney? disease?with?stage?1?through?stage?4?chronic?kidney?dis ease,?or?unspecified?chronic?kidney?disease Comments:?new?hd?start,?dm/htn,?underlying?schizoaffective?disorder doing?ok,?labs?good,?bp?has?been?controlled Medications?and?labs?reviewed. LAST?HOSPITALIZATION Discharge?Diagnosis:?K92.2?Gastrointestinal?hemorrhage,?unspecified Admission?Date?01/29/24 Discharge?Date?02/01/24 DIALYSIS?PRESCRIPTION ??IHD?3x?Week?Start?date:?03/12/24 ??Dialyzer:?180NRe?Optiflux ??BFR:?350 ??DFR:?Autoflow?2 ??Potassium:?2.0 ??Sodium:?137 ??EDW:?61.2 ??Duration:?3:15 ??Calcium:?2.5 ??Bicarb:?35 ??Rx?updated?on:?03/11/2024 TREATMENT?ASSESSMENT Blood?pressure?controlled.?No?changes?indicated.? BP?Sit?Pre ??03/19/2024:?142/43 ??03/17/2024:?212/91 ??03/15/2024:?118/55 BP?Stand?Post ??03/19/2024:?129/63 ??03/15/2024:?129/61 BP?Sit?Post ??03/19/2024:?126/59 ??03/17/2024:?162/78 ??03/15/2024:?115/60 Tx?Duration ??03/19/2024:?2:14 ??03/17/2024:?3:03 ??03/15/2024:?3:09 Missed?Treatments 1?-?last?30?days 1?-?last?60?days 9/10?-?recent FLUID?ASSESSMENT Fluid?status?acceptable.?Interdialytic?weight?gain?acceptable.?No ?changes?indicated.? EDW?(kg) ??03/19/2024:?61.2 ??03/17/2024:?61.2 ??03/15/2024:?61.2 Weight?Pre?(kg) ??03/19/2024:?60.5 ??03/17/2024:?64.0 ??03/15/2024:?64.0 Weight?Post?(kg) ??03/19/2024:?60.1 ??03/17/2024:?62.1 ??03/15/2024:?64.3 PWV?(kg) ??03/19/2024:?-1.1 ??03/17/2024:?0.9 ??03/15/2024:?3.1 UF?Rate?(mL/kg/hr) ??03/19/2024:?3 ??03/17/2024:?10 ??03/15/2024:?-1.5 ADEQUACY?ASSESSMENT Adequacy?target?met.? spKt/V,?URR ??03/10/2024:?1.62,?76.0 ??02/11/2024:?1.96,?82.0 ??01/07/2024:?1.53,?76.0 ACCESS?ASSESSMENT ??Access?Type:?CVCatheter ??Access?SubType:?Tunneled ??Access?Status:?Active?(In?Use)?-?10/27/2023 ??Access?Location:?Chest ??Placed:?10/16/2023 Vascular?access?reviewed. ANEMIA?ASSESSMENT HGB?at?goal.?Iron?parameters?acceptable.?GARFIELD?dose?adequate.& #160;No?changes?indicated.? HGB,?TSAT ??03/17/2024:?11.6,?- ??03/10/2024:?11.9,?17.0 ??03/03/2024:?11.1,?- ?? Ferritin ??02/11/2024:?308.0 ??10/29/2023:?203.0 Mircera,?IVP?(mcg) ??03/03/2024:?100 ??02/16/2024:?100 ??02/02/2024:?100 Iron?Sucrose?(Venofer)?(mg) ??01/23/2024:?100 ??01/16/2024:?100 ??01/09/2024:?100 BMM?ASSESSMENT PTH?controlled.?Calcium?controlled.?Phosphorus?controlled.?BMM?me ds?adherence?acceptable.?No?changes?indicated.? PTH,?Intact ??02/11/2024:?314.0 ??12/10/2023:?351.0 ??10/29/2023:?297.0 ?? Calcium,?Phosphorus ??03/10/2024:?9.2,?3.3 ??02/11/2024:?9.3,?4.2 ??01/07/2024:?8.8,?3.7 Vitamin?D?(Calcitriol)?Oral?(mcg) ??03/19/2024:?0.25 ??03/17/2024:?0.25 ??03/15/2024:?0.25 NUTRITION?ASSESSMENT Potassium?controlled.?Albumin?controlled.?No?changes?indicated.? Potassium,?Albumin ??03/10/2024:?4.2,?3.9 ??02/11/2024:?4.2,?4.0 ??01/07/2024:?4.3,?3.7 ?? eNPCR ??03/10/2024:?0.91 ??02/11/2024:?0.93 ??01/07/2024:?0.64 PHYSICAL?EXAM Exam?Performed.?Vital?Signs?Reviewed.?Lungs?-?Clear.?CV&#160 ;-?RRR.?EXT?-?No?edema. DIAGNOSIS Chief?Complaint:?N18.6?End?stage?renal?disease Patient?data?updated?03/22/2024?at?1:37?PM Signed?By:?Shelby,?Markie???on?03/22/2024?1:38:02?PM END OF DOCUMENT
--- OUTSIDE RECORDS SUMMARY | 2024-07-04 03:54 | XMS_ITS ---
Author Name Markie Ryan Address [address] [place] [id number] Phone [phone] Organization [facility], NA DOCUMENT DISCLAIMER Multiple document versions may exist, please be sure you review the latest version. The information in the [facility] Progress Note Document represents a providers documented clinical note containing certain health and medical information. It may not contain the complete medical history for the patient and should be independently verified. The represented time in the document is Eastern Time PROVIDER ROUNDING NOTE COMPREHENSIVE Patient:?Barbara?L?Mylene,?1950,?73y,?F Dialysis?Location:?[place]?-?[place]?[facility] Attending?Radiator Fitter:?Reza Service?Date:?02/04/2024 Service?Provider:?Markie?Shelby,? I?met?face?to?face?with?the?patient?today. OVERVIEW The?patient?presented?with?ESRD?on?dialysis Primary?cause?of?renal?failure:?Hypertensive?chronic?kidney? disease?with?stage?1?through?stage?4?chronic?kidney?dis ease,?or?unspecified?chronic?kidney?disease Comments:?new?hd?start,?dm/htn,?underlying?schizoaffective?disorder awake?and?alert?today,?no?new?issues?reported,?iron?on& #160;hold,?increase?micera?prn chronic?UE?tremors,?unlikely?a?candidate?for?alternate?access Medications?and?labs?reviewed. LAST?HOSPITALIZATION Discharge?Diagnosis:?K92.2?Gastrointestinal?hemorrhage,?unspecified Admission?Date?01/29/24 Discharge?Date?02/01/24 DIALYSIS?PRESCRIPTION ??IHD?3x?Week?Start?date:?01/28/24 ??Dialyzer:?180NRe?Optiflux ??BFR:?350 ??DFR:?Autoflow?2 ??Potassium:?2.0 ??Sodium:?137 ??EDW:?60 ??Duration:?3:30 ??Calcium:?2.5 ??Bicarb:?35 ??Rx?updated?on:?01/28/2024 TREATMENT?ASSESSMENT Blood?pressure?controlled.?No?changes?indicated.? BP?Sit?Pre ??02/02/2024:?173/75 ??01/28/2024:?145/61 ??01/26/2024:?160/80 BP?Stand?Post ??01/28/2024:?144/61 ??01/26/2024:?149/65 BP?Sit?Post ??02/02/2024:?135/70 ??01/28/2024:?125/55 ??01/26/2024:?137/82 Tx?Duration ??02/02/2024:?3:39 ??01/28/2024:?3:38 ??01/26/2024:?3:33 Missed?Treatments 1?-?last?30?days 2?-?last?60?days 7/16?-?recent FLUID?ASSESSMENT Fluid?status?acceptable.?Interdialytic?weight?gain?acceptable.?No ?changes?indicated.? EDW?(kg) ??02/02/2024:?60.0 ??01/28/2024:?60.0 ??01/26/2024:?58.2 Weight?Pre?(kg) ??02/02/2024:?62.7 ??01/28/2024:?60.7 ??01/26/2024:?63.0 Weight?Post?(kg) ??02/02/2024:?60.8 ??01/28/2024:?60.1 ??01/26/2024:?60.5 PWV?(kg) ??02/02/2024:?0.8 ??01/28/2024:?0.1 ??01/26/2024:?2.3 UF?Rate?(mL/kg/hr) ??02/02/2024:?8.6 ??01/28/2024:?2.7 ??01/26/2024:?11.6 ADEQUACY?ASSESSMENT Adequacy?target?met.?Prescription?compliance?acceptable.? spKt/V,?URR ??01/07/2024:?1.53,?76.0 ??12/15/2023:?1.58,?76.0 ??12/10/2023:?1.33,?70.0 ACCESS?ASSESSMENT ??Access?Type:?CVCatheter ??Access?SubType:?Tunneled ??Access?Status:?Active?(In?Use)?-?10/27/2023 ??Access?Location:?Chest ??Placed:?10/16/2023 Vascular?access?reviewed. ANEMIA?ASSESSMENT HGB?below?goal.?Iron?parameters?acceptable.?GARFIELD?dose?adequat e.?No?changes?indicated.? HGB ??01/28/2024:?7.6 ??01/21/2024:?7.8 ??01/14/2024:?7.9 ?? Ferritin ??10/29/2023:?203.0 Mircera,?IVP?(mcg) ??02/02/2024:?100 ??01/19/2024:?100 Iron?Sucrose?(Venofer)?(mg) ??01/23/2024:?100 ??01/16/2024:?100 ??01/09/2024:?100 BMM?ASSESSMENT PTH?controlled.?Calcium?controlled.?Phosphorus?controlled.?BMM?me ds?adherence?acceptable.?No?changes?indicated.? PTH,?Intact ??12/10/2023:?351.0 ??10/29/2023:?297.0 ?? Calcium,?Phosphorus ??01/07/2024:?8.8,?3.7 ??12/10/2023:?8.9,?4.6 ??10/29/2023:?9.2,?4.2 Vitamin?D?(Calcitriol)?Oral?(mcg) ??02/02/2024:?0.25 ??01/28/2024:?0.25 ??01/26/2024:?0.25 NUTRITION?ASSESSMENT Potassium?controlled.?Albumin?controlled.?No?changes?indicated.? Potassium,?Albumin ??01/07/2024:?4.3,?3.7 ??12/10/2023:?4.9,?3.5 ??10/29/2023:?5.8,?3.3 ?? eNPCR ??01/07/2024:?0.64 ??12/15/2023:?0.78 ??12/10/2023:?0.75 PHYSICAL?EXAM Exam?Performed.?Vital?Signs?Reviewed.?Lungs?-?Clear.?CV&#160 ;-?RRR.?EXT?-?No?edema. DIAGNOSIS Chief?Complaint:?N18.6?End?stage?renal?disease Patient?data?updated?02/04/2024?at?1:12?PM Signed?By:?Shelby,?Markie,???on?02/04/2024?1:13:58?PM END OF DOCUMENT
--- OUTSIDE RECORDS SUMMARY | 2024-07-04 03:54 | XMS_ITS ---
Author Name Lupe Velasquez Address [address] [place], [place] [id number] Phone [phone] Organization [facility], NA DOCUMENT DISCLAIMER Multiple document versions may exist, please be sure you review the latest version. The information in the [facility] Progress Note Document represents a providers documented clinical note containing certain health and medical information. It may not contain the complete medical history for the patient and should be independently verified. The represented time in the document is Eastern Time PROVIDER ROUNDING NOTE BASIC Patient:?Barbara?L?Chakraborty,?1950,?73y,?F Dialysis?Location:?[place]?-?[place]?[facility] Attending?Electrical Electronics Engineer:?Markie?Shelby Service?Date:?02/02/2024 Service?Provider:?Lupe?Eva,?CAREER RESOURCE TECHNICIAN I?met?face?to?face?with?the?patient?today. OVERVIEW The?patient?presented?with?ESRD?on?dialysis Primary?cause?of?renal?failure:?Hypertensive?chronic?kidney? disease?with?stage?1?through?stage?4?chronic?kidney?dis ease,?or?unspecified?chronic?kidney?disease Comments:?new?hd?start,?dm/htn,?underlying?schizoaffective?disord er.?doing?ok?with?HD?thus?far bp?elevated?initially?and?then?improves.?continue?to?slowly& #160;decrease?dw?and?monitor may?not?be?a?candidate?for?alternate?access?with?tremors -seen?on?dialysis;?tolerating?well Medications?and?labs?reviewed. LAST?HOSPITALIZATION Discharge?Diagnosis:?K92.2?Gastrointestinal?hemorrhage,?unspecified Admission?Date?01/29/24 Discharge?Date?02/01/24 DIALYSIS?PRESCRIPTION ??IHD?3x?Week?Start?date:?01/28/24 ??Dialyzer:?180NRe?Optiflux ??BFR:?350 ??DFR:?Autoflow?2 ??Potassium:?2.0 ??Sodium:?137 ??EDW:?60 ??Duration:?3:30 ??Calcium:?2.5 ??Bicarb:?35 ??Rx?updated?on:?01/28/2024 TREATMENT?ASSESSMENT BP?Sit?Pre ??02/02/2024:?173/75 ??01/28/2024:?145/61 ??01/26/2024:?160/80 BP?Stand?Post ??01/28/2024:?144/61 ??01/26/2024:?149/65 BP?Sit?Post ??02/02/2024:?135/70 ??01/28/2024:?125/55 ??01/26/2024:?137/82 Tx?Duration ??02/02/2024:?3:39 ??01/28/2024:?3:38 ??01/26/2024:?3:33 Missed?Treatments 1?-?last?30?days 2?-?last?60?days 7/16?-?recent FLUID?ASSESSMENT EDW?(kg) ??02/02/2024:?60.0 ??01/28/2024:?60.0 ??01/26/2024:?58.2 Weight?Pre?(kg) ??02/02/2024:?62.7 ??01/28/2024:?60.7 ??01/26/2024:?63.0 Weight?Post?(kg) ??02/02/2024:?60.8 ??01/28/2024:?60.1 ??01/26/2024:?60.5 PWV?(kg) ??02/02/2024:?0.8 ??01/28/2024:?0.1 ??01/26/2024:?2.3 UF?Rate?(mL/kg/hr) ??02/02/2024:?8.6 ??01/28/2024:?2.7 ??01/26/2024:?11.6 ADEQUACY?ASSESSMENT spKt/V,?URR ??01/07/2024:?1.53,?76.0 ??12/15/2023:?1.58,?76.0 ??12/10/2023:?1.33,?70.0 ACCESS?ASSESSMENT ??Access?Type:?CVCatheter ??Access?SubType:?Tunneled ??Access?Status:?Active?(In?Use)?-?10/27/2023 ??Access?Location:?Chest ??Placed:?10/16/2023 ANEMIA?ASSESSMENT HGB ??01/28/2024:?7.6 ??01/21/2024:?7.8 ??01/14/2024:?7.9 ?? Ferritin ??10/29/2023:?203.0 Mircera,?IVP?(mcg) ??01/19/2024:?100 Iron?Sucrose?(Venofer)?(mg) ??01/23/2024:?100 ??01/16/2024:?100 ??01/09/2024:?100 BMM?ASSESSMENT PTH,?Intact ??12/10/2023:?351.0 ??10/29/2023:?297.0 ?? Calcium,?Phosphorus ??01/07/2024:?8.8,?3.7 ??12/10/2023:?8.9,?4.6 ??10/29/2023:?9.2,?4.2 Vitamin?D?(Calcitriol)?Oral?(mcg) ??01/28/2024:?0.25 ??01/26/2024:?0.25 ??01/23/2024:?0.25 NUTRITION?ASSESSMENT Potassium,?Albumin ??01/07/2024:?4.3,?3.7 ??12/10/2023:?4.9,?3.5 ??10/29/2023:?5.8,?3.3 ?? eNPCR ??01/07/2024:?0.64 ??12/15/2023:?0.78 ??12/10/2023:?0.75 DIAGNOSIS Chief?Complaint:?N18.6?End?stage?renal?disease Patient?data?updated?02/02/2024?at?4:36?PM Signed?By:?Eva,?Lupe,?CAREER RESOURCE TECHNICIAN??on?02/02/2024?4:36:53 PM END OF DOCUMENT
--- OUTSIDE RECORDS SUMMARY | 2024-07-04 03:54 | XMS_ITS ---
Author Name Lupe Velasquez Address [address] [place] [address] Phone [phone] Organization [facility] e, NA DOCUMENT DISCLAIMER Multiple document versions may exist, please be sure you review the latest version. The information in the [facility] Progress Note Document represents a providers documented clinical note containing certain health and medical information. It may not contain the complete medical history for the patient and should be independently verified. The represented time in the document is Eastern Time PROVIDER ROUNDING NOTE HHD THIS NOTE HAS BEEN VOIDED IN THE SOURCE SYSTEM. END OF DOCUMENT
--- OUTSIDE RECORDS SUMMARY | 2024-07-04 03:54 | XMS_ITS ---
Author Name Lupe Velasquez Address [address] [place], [place] [id number] Phone [phone] Organization [facility], NA DOCUMENT DISCLAIMER Multiple document versions may exist, please be sure you review the latest version. The information in the [facility] Progress Note Document represents a providers documented clinical note containing certain health and medical information. It may not contain the complete medical history for the patient and should be independently verified. The represented time in the document is Eastern Time PROVIDER ROUNDING NOTE BASIC Patient:?Barbara?L?Chakraborty,?1950,?73y,?F Dialysis?Location:?[place]?-?[place]?[facility] Attending?Fiscal Assistant:?Markie?Shelby Service?Date:?04/12/2024 Service?Provider:?Lupe?Eva,?LADLE MECHANIC I?met?face?to?face?with?the?patient?today. OVERVIEW The?patient?presented?with?ESRD?on?dialysis Primary?cause?of?renal?failure:?Hypertensive?chronic?kidney? disease?with?stage?1?through?stage?4?chronic?kidney?dis ease,?or?unspecified?chronic?kidney?disease Comments:?new?hd?start,?dm/htn,?underlying?schizoaffective?disorder doing?ok,?labs?good,?bp?has?been?controlled Seen?on?dialysis?tolerating?well? Medications?and?labs?reviewed. LAST?HOSPITALIZATION Discharge?Diagnosis:?K92.2?Gastrointestinal?hemorrhage,?unspecified Admission?Date?01/29/24 Discharge?Date?02/01/24 DIALYSIS?PRESCRIPTION ??IHD?3x?Week?Start?date:?04/12/24 ??Dialyzer:?180NRe?Optiflux ??BFR:?350 ??DFR:?Autoflow?2 ??Potassium:?2.0 ??Sodium:?137 ??EDW:?60.7 ??Duration:?3:15 ??Calcium:?2.5 ??Bicarb:?35 ??Rx?updated?on:?04/10/2024 TREATMENT?ASSESSMENT BP?Sit?Pre ??04/12/2024:?164/72 ??04/09/2024:?153/60 ??04/07/2024:?140/65 BP?Stand?Post ??04/09/2024:?152/72 ??04/07/2024:?147/68 BP?Sit?Post ??04/12/2024:?149/76 ??04/09/2024:?147/66 ??04/07/2024:?145/74 Tx?Duration ??04/12/2024:?3:16 ??04/09/2024:?3:04 ??04/07/2024:?3:18 Missed?Treatments 0?-?last?30?days 1?-?last?60?days 9/10?-?recent FLUID?ASSESSMENT EDW?(kg) ??04/12/2024:?60.7 ??04/09/2024:?61.2 ??04/07/2024:?61.2 Weight?Pre?(kg) ??04/12/2024:?61.8 ??04/09/2024:?61.7 ??04/07/2024:?60.8 Weight?Post?(kg) ??04/12/2024:?61.4 ??04/09/2024:?60.9 ??04/07/2024:?60.5 PWV?(kg) ??04/12/2024:?0.7 ??04/09/2024:?-0.3 ??04/07/2024:?-0.7 UF?Rate?(mL/kg/hr) ??04/12/2024:?2 ??04/09/2024:?4.3 ??04/07/2024:?1.5 ADEQUACY?ASSESSMENT spKt/V,?URR ??04/07/2024:?1.55,?76.0 ??03/10/2024:?1.62,?76.0 ??02/11/2024:?1.96,?82.0 ACCESS?ASSESSMENT ??Access?Type:?CVCatheter ??Access?SubType:?Tunneled ??Access?Status:?Active?(In?Use)?-?10/27/2023 ??Access?Location:?Chest ??Placed:?10/16/2023 ANEMIA?ASSESSMENT HGB,?TSAT ??04/07/2024:?10.9,?44.0 ??03/31/2024:?10.8,?- ??03/24/2024:?10.7,?- ?? Ferritin ??02/11/2024:?308.0 ??10/29/2023:?203.0 Mircera,?IVP?(mcg) ??03/03/2024:?100 ??02/16/2024:?100 ??02/02/2024:?100 Iron?Sucrose?(Venofer)?(mg) ??04/09/2024:?100 ??04/02/2024:?100 ??01/23/2024:?100 BMM?ASSESSMENT PTH,?Intact ??02/11/2024:?314.0 ??12/10/2023:?351.0 ??10/29/2023:?297.0 ?? Calcium,?Phosphorus ??04/07/2024:?9.4,?4.7 ??03/10/2024:?9.2,?3.3 ??02/11/2024:?9.3,?4.2 Vitamin?D?(Calcitriol)?Oral?(mcg) ??04/12/2024:?0.25 ??04/09/2024:?0.25 ??04/07/2024:?0.25 NUTRITION?ASSESSMENT Potassium,?Albumin ??04/07/2024:?4.8,?3.9 ??03/10/2024:?4.2,?3.9 ??02/11/2024:?4.2,?4.0 ?? eNPCR ??04/07/2024:?1.02 ??03/10/2024:?0.91 ??02/11/2024:?0.93 DIAGNOSIS Chief?Complaint:?N18.6?End?stage?renal?disease Patient?data?updated?04/12/2024?at?7:35?PM Signed?By:?Eva,?Lupe,?LADLE MECHANIC??on?04/12/2024?7:35:30 PM END OF DOCUMENT
--- OUTSIDE RECORDS SUMMARY | 2024-07-04 03:54 | XMS_ITS ---
Author Name Lupe Velasquez Address [address] [place] [address] Phone [phone] Organization [facility] e, NA DOCUMENT DISCLAIMER Multiple document versions may exist, please be sure you review the latest version. The information in the [facility] Progress Note Document represents a providers documented clinical note containing certain health and medical information. It may not contain the complete medical history for the patient and should be independently verified. The represented time in the document is Eastern Time PROVIDER ROUNDING NOTE BASIC THIS NOTE HAS BEEN VOIDED IN THE SOURCE SYSTEM. END OF DOCUMENT
--- OUTSIDE RECORDS SUMMARY | 2024-07-04 03:54 | XMS_ITS ---
Author Name Lupe Velasquez Address [address] [place] [id number] Phone [phone] Organization [facility], NA DOCUMENT DISCLAIMER Multiple document versions may exist, please be sure you review the latest version. The information in the [facility] Progress Note Document represents a providers documented clinical note containing certain health and medical information. It may not contain the complete medical history for the patient and should be independently verified. The represented time in the document is Eastern Time PROVIDER ROUNDING NOTE BASIC Patient:?Barbara?L?Mylene,?1950,?73y,?F Dialysis?Location:?[place]?-?[place]?[facility] Attending?Senior Sharepoint Developer:?Markie?Shelby Service?Date:?12/10/2023 Service?Provider:?Lupe?Eva,?AIRCRAFT MAINTENANCE ENGINEER I?met?face?to?face?with?the?patient?today. OVERVIEW The?patient?presented?with?ESRD?on?dialysis Primary?cause?of?renal?failure:?Hypertensive?chronic?kidney? disease?with?stage?1?through?stage?4?chronic?kidney?dis ease,?or?unspecified?chronic?kidney?disease Comments:?new?hd?start,?dm/htn,?underlying?schizoaffective?disord er.?doing?ok?with?HD?thus?far bp?elevated?initially?and?then?improves.?continue?to?slowly& #160;decrease?dw?and?monitor may?not?be?a?candidate?for?alternate?access?with?tremors Patient?seen?on?dialysis?tolerating?well? Medications?and?labs?reviewed. LAST?HOSPITALIZATION Discharge?Diagnosis:?R41.82?Altered?mental?status,?unspecified Admission?Date?10/29/23 Discharge?Date?11/03/23 DIALYSIS?PRESCRIPTION ??IHD?3x?Week?Start?date:?12/03/23 ??Dialyzer:?180NRe?Optiflux ??BFR:?350 ??DFR:?Autoflow?2 ??Potassium:?2.0 ??Sodium:?137 ??EDW:?59.5 ??Duration:?3:30 ??Calcium:?2.5 ??Bicarb:?35 ??Rx?updated?on:?12/02/2023 TREATMENT?ASSESSMENT BP?Stand?Pre ??12/03/2023:?164/75 BP?Sit?Pre ??12/08/2023:?238/95 ??12/05/2023:?152/74 ??12/03/2023:?178/80 BP?Stand?Post ??12/08/2023:?154/78 ??12/05/2023:?130/63 BP?Sit?Post ??12/08/2023:?151/68 ??12/05/2023:?138/77 ??12/03/2023:?193/88 Tx?Duration ??12/08/2023:?3:03 ??12/05/2023:?3:07 ??12/03/2023:?2:44 Missed?Treatments 0?-?last?30?days 0?-?last?60?days FLUID?ASSESSMENT EDW?(kg) ??12/08/2023:?59.5 ??12/05/2023:?59.5 ??12/03/2023:?59.5 Weight?Pre?(kg) ??12/08/2023:?59.6 ??12/05/2023:?58.6 ??12/03/2023:?59.1 Weight?Post?(kg) ??12/08/2023:?58.9 ??12/05/2023:?58.1 ??12/03/2023:?58.8 PWV?(kg) ??12/08/2023:?-0.6 ??12/05/2023:?-1.4 ??12/03/2023:?-0.7 UF?Rate?(mL/kg/hr) ??12/08/2023:?3.9 ??12/05/2023:?2.8 ??12/03/2023:?1.9 ADEQUACY?ASSESSMENT spKt/V,?URR ??10/29/2023:?1.66,?79.0 ACCESS?ASSESSMENT ??Access?Type:?CVCatheter ??Access?SubType:?Tunneled ??Access?Status:?Active?(In?Use)?-?10/27/2023 ??Access?Location:?Chest ??Placed:?10/16/2023 ANEMIA?ASSESSMENT HGB ??12/03/2023:?9.6 ??11/26/2023:?9.2 ??11/19/2023:?9.2 ?? Ferritin ??10/29/2023:?203.0 Iron?Sucrose?(Venofer)?(mg) ??12/05/2023:?100 ??11/28/2023:?100 ??11/21/2023:?100 BMM?ASSESSMENT PTH,?Intact ??10/29/2023:?297.0 ?? Calcium,?Phosphorus ??10/29/2023:?9.2,?4.2 Vitamin?D?(Calcitriol)?Oral?(mcg) ??12/08/2023:?0.25 ??12/05/2023:?0.25 ??12/03/2023:?0.25 NUTRITION?ASSESSMENT Potassium,?Albumin ??10/29/2023:?5.8,?3.3 DIAGNOSIS Chief?Complaint:?N18.6?End?stage?renal?disease Patient?data?updated?12/10/2023?at?1:29?PM Signed?By:?Eva,?Lupe,?AIRCRAFT MAINTENANCE ENGINEER??on?12/10/2023?3:31:38 PM END OF DOCUMENT
--- OUTSIDE RECORDS SUMMARY | 2024-07-04 03:54 | XMS_ITS ---
Author Name Shelby Markie Address [address] [place] [id number] Phone [phone] Organization [facility] e, NA DOCUMENT DISCLAIMER Multiple document versions may exist, please be sure you review the latest version. The information in the [facility] Progress Note Document represents a providers documented clinical note containing certain health and medical information. It may not contain the complete medical history for the patient and should be independently verified. The represented time in the document is Eastern Time PROVIDER ROUNDING NOTE COMPREHENSIVE Patient:?Barbara?L?Mylene,?1950,?73y,?F Dialysis?Location:?[place]?-?[place]?[facility] Attending?[employer]:?Reza Service?Date:?12/03/2023 Service?Provider:?Markie?Shelby,? I?met?face?to?face?with?the?patient?today. OVERVIEW The?patient?presented?with?ESRD?on?dialysis Primary?cause?of?renal?failure:?Hypertensive?chronic?kidney? disease?with?stage?1?through?stage?4?chronic?kidney?dis ease,?or?unspecified?chronic?kidney?disease Comments:?new?hd?start,?dm/htn,?underlying?schizoaffective?disord er.?doing?ok?with?HD?thus?far bp?elevated?initially?and?then?improves.?continue?to?slowly& #160;decrease?dw?and?monitor may?not?be?a?candidate?for?alternate?access?with?tremors Medications?and?labs?reviewed. LAST?HOSPITALIZATION Discharge?Diagnosis:?R41.82?Altered?mental?status,?unspecified Admission?Date?10/29/23 Discharge?Date?11/03/23 DIALYSIS?PRESCRIPTION ??IHD?3x?Week?Start?date:?12/03/23 ??Dialyzer:?180NRe?Optiflux ??BFR:?350 ??DFR:?Autoflow?2 ??Potassium:?2.0 ??Sodium:?137 ??EDW:?59.5 ??Duration:?3:30 ??Calcium:?2.5 ??Bicarb:?35 ??Rx?updated?on:?12/02/2023 TREATMENT?ASSESSMENT Blood?pressure?controlled.?No?changes?indicated.? BP?Sit?Pre ??12/01/2023:?209/90 ??11/28/2023:?207/87 ??11/26/2023:?153/81 BP?Stand?Post ??12/01/2023:?144/75 ??11/28/2023:?182/80 ??11/26/2023:?177/72 BP?Sit?Post ??12/01/2023:?130/66 ??11/28/2023:?163/71 ??11/26/2023:?197/84 Tx?Duration ??12/01/2023:?3:00 ??11/28/2023:?2:56 ??11/26/2023:?2:50 Missed?Treatments 0?-?last?30?days 0?-?last?60?days FLUID?ASSESSMENT Fluid?status?acceptable.?Interdialytic?weight?gain?acceptable.?No ?changes?indicated.? EDW?(kg) ??12/01/2023:?60.0 ??11/28/2023:?60.0 ??11/26/2023:?60.0 Weight?Pre?(kg) ??12/01/2023:?60.1 ??11/28/2023:?61.2 ??11/26/2023:?62.0 Weight?Post?(kg) ??12/01/2023:?59.9 ??11/28/2023:?60.9 ??11/26/2023:?61.1 PWV?(kg) ??12/01/2023:?-0.1 ??11/28/2023:?0.9 ??11/26/2023:?1.1 UF?Rate?(mL/kg/hr) ??12/01/2023:?1.1 ??11/28/2023:?1.7 ??11/26/2023:?5.2 ADEQUACY?ASSESSMENT Adequacy?target?met.?Prescription?compliance?acceptable.? spKt/V,?URR ??10/29/2023:?1.66,?79.0 ACCESS?ASSESSMENT ??Access?Type:?CVCatheter ??Access?SubType:?Tunneled ??Access?Status:?Active?(In?Use)?-?10/27/2023 ??Access?Location:?Chest ??Placed:?10/16/2023 Vascular?access?reviewed. ANEMIA?ASSESSMENT HGB?at?goal.?Iron?parameters?acceptable.?GARFIELD?dose?adequate.& #160;No?changes?indicated.? HGB ??11/26/2023:?9.2 ??11/19/2023:?9.2 ??11/12/2023:?9.1 ?? Ferritin ??10/29/2023:?203.0 Iron?Sucrose?(Venofer)?(mg) ??11/28/2023:?100 ??11/21/2023:?100 ??11/14/2023:?100 BMM?ASSESSMENT PTH?controlled.?Calcium?controlled.?Phosphorus?controlled.?BMM?me ds?adherence?acceptable.?No?changes?indicated.? PTH,?Intact ??10/29/2023:?297.0 ?? Calcium,?Phosphorus ??10/29/2023:?9.2,?4.2 Vitamin?D?(Calcitriol)?Oral?(mcg) ??12/01/2023:?0.25 ??11/28/2023:?0.25 ??11/26/2023:?0.25 NUTRITION?ASSESSMENT Potassium?controlled.?Albumin?controlled.?No?changes?indicated.? Potassium,?Albumin ??10/29/2023:?5.8,?3.3 PHYSICAL?EXAM Exam?Performed.?Vital?Signs?Reviewed.?Lungs?-?Clear.?CV&#160 ;-?RRR.?EXT?-?No?edema. DIAGNOSIS Chief?Complaint:?N18.6?End?stage?renal?disease Patient?data?updated?12/03/2023?at?1:22?PM Signed?By:?Shelby,?Markie,???on?12/03/2023?1:24:26?PM END OF DOCUMENT
--- OUTSIDE RECORDS SUMMARY | 2024-07-04 03:55 | XMS_ITS ---
Author Name Lupe Velasquez Address [address] [place] [id number] Phone [phone] Organization [facility], NA DOCUMENT DISCLAIMER Multiple document versions may exist, please be sure you review the latest version. The information in the [facility] Progress Note Document represents a providers documented clinical note containing certain health and medical information. It may not contain the complete medical history for the patient and should be independently verified. The represented time in the document is Eastern Time PROVIDER ROUNDING NOTE BASIC Patient:?Barbara?L?Mylene,?1950,?73y,?F Dialysis?Location:?[place]?[facility]?-?[place]?[facility] Attending?Bleach Boiler Filler:?Markie?Shelby Service?Date:?01/07/2024 Service?Provider:?Lupe?Eva,?SYSTEMS ARCHITECTURE ANALYST I?met?face?to?face?with?the?patient?today. OVERVIEW The?patient?presented?with?ESRD?on?dialysis Primary?cause?of?renal?failure:?Hypertensive?chronic?kidney? disease?with?stage?1?through?stage?4?chronic?kidney?dis ease,?or?unspecified?chronic?kidney?disease Comments:?new?hd?start,?dm/htn,?underlying?schizoaffective?disord er.?doing?ok?with?HD?thus?far bp?elevated?initially?and?then?improves.?continue?to?slowly& #160;decrease?dw?and?monitor may?not?be?a?candidate?for?alternate?access?with?tremors -seen?on?dialysis;?tolerating?well Medications?and?labs?reviewed. LAST?HOSPITALIZATION Discharge?Diagnosis:?R55?Syncope?and?collapse Admission?Date?12/19/23 Discharge?Date?12/26/23 DIALYSIS?PRESCRIPTION ??IHD?3x?Week?Start?date:?12/03/23 ??Dialyzer:?180NRe?Optiflux ??BFR:?350 ??DFR:?Autoflow?2 ??Potassium:?2.0 ??Sodium:?137 ??EDW:?59.5 ??Duration:?3:30 ??Calcium:?2.5 ??Bicarb:?35 ??Rx?updated?on:?12/02/2023 TREATMENT?ASSESSMENT BP?Sit?Pre ??01/02/2024:?183/85 ??12/19/2023:?224/108 ??12/17/2023:?199/83 BP?Stand?Post ??12/17/2023:?175/72 BP?Sit?Post ??01/02/2024:?181/84 ??12/19/2023:?157/46 ??12/17/2023:?184/88 Tx?Duration ??01/02/2024:?3:32 ??12/19/2023:?0:22 ??12/17/2023:?2:47 Missed?Treatments 1?-?last?30?days 1?-?last?60?days /?-?recent FLUID?ASSESSMENT EDW?(kg) ??01/02/2024:?59.5 ??12/19/2023:?59.5 ??12/17/2023:?59.5 Weight?Pre?(kg) ??01/02/2024:?57.5 ??12/19/2023:?59.9 ??12/17/2023:?61.1 Weight?Post?(kg) ??01/02/2024:?58.1 ??12/19/2023:?59.9 ??12/17/2023:?61.1 PWV?(kg) ??01/02/2024:?-1.4 ??12/19/2023:?0.4 ??12/17/2023:?1.6 UF?Rate?(mL/kg/hr) ??01/02/2024:?-2.9 ??12/19/2023:?0 ??12/17/2023:?0 ADEQUACY?ASSESSMENT spKt/V,?URR ??12/15/2023:?1.58,?76.0 ??12/10/2023:?1.33,?70.0 ??10/29/2023:?1.66,?79.0 ACCESS?ASSESSMENT ??Access?Type:?CVCatheter ??Access?SubType:?Tunneled ??Access?Status:?Active?(In?Use)?-?10/27/2023 ??Access?Location:?Chest ??Placed:?10/16/2023 ANEMIA?ASSESSMENT HGB,?TSAT ??12/17/2023:?9.4,?- ??12/10/2023:?8.8,?29.0 ??12/03/2023:?9.6,?- ?? Ferritin ??10/29/2023:?203.0 Iron?Sucrose?(Venofer)?(mg) ??01/02/2024:?100 ??12/22/2023:?100 ??12/12/2023:?100 BMM?ASSESSMENT PTH,?Intact ??12/10/2023:?351.0 ??10/29/2023:?297.0 ?? Calcium,?Phosphorus ??12/10/2023:?8.9,?4.6 ??10/29/2023:?9.2,?4.2 Vitamin?D?(Calcitriol)?Oral?(mcg) ??01/02/2024:?0.25 ??12/19/2023:?0.25 ??12/17/2023:?0.25 NUTRITION?ASSESSMENT Potassium,?Albumin ??12/10/2023:?4.9,?3.5 ??10/29/2023:?5.8,?3.3 ?? eNPCR ??12/15/2023:?0.78 ??12/10/2023:?0.75 DIAGNOSIS Chief?Complaint:?N18.6?End?stage?renal?disease Patient?data?updated?01/07/2024?at?3:25?PM Signed?By:?Eva,?Lupe,?SYSTEMS ARCHITECTURE ANALYST??on?01/07/2024?3:25:25 PM END OF DOCUMENT
--- OUTSIDE RECORDS SUMMARY | 2024-07-04 03:55 | XMS_ITS ---
Author Name Markie Ryan Address [address] [place] [id number] Phone [phone] Organization [facility], NA DOCUMENT DISCLAIMER Multiple document versions may exist, please be sure you review the latest version. The information in the [facility] Progress Note Document represents a providers documented clinical note containing certain health and medical information. It may not contain the complete medical history for the patient and should be independently verified. The represented time in the document is Eastern Time PROVIDER ROUNDING NOTE COMPREHENSIVE Patient:?Barbara?L?Chakraborty,?1950,?73y,?F Dialysis?Location:?[place]?-?[place] Attending?Opal Polisher:?Reza Service?Date:?05/05/2024 Service?Provider:?Markie?Shelby,? I?met?face?to?face?with?the?patient?today. OVERVIEW The?patient?presented?with?ESRD?on?dialysis Primary?cause?of?renal?failure:?Hypertensive?chronic?kidney? disease?with?stage?1?through?stage?4?chronic?kidney?dis ease,?or?unspecified?chronic?kidney?disease Comments:?dm/htn,?underlying?schizoaffective?disorder hgb?dropped,?micera?adjusted,?repeat?hgb.?otherwise?stable Medications?and?labs?reviewed. LAST?HOSPITALIZATION Discharge?Diagnosis:?G93.41?Metabolic?encephalopathy Admission?Date?04/19/24 Discharge?Date?04/23/24 DIALYSIS?PRESCRIPTION ??IHD?3x?Week?Start?date:?05/03/24 ??Dialyzer:?180NRe?Optiflux ??BFR:?350 ??DFR:?Autoflow?2 ??Potassium:?2.0 ??Sodium:?137 ??EDW:?60.2 ??Duration:?3:15 ??Calcium:?2.5 ??Bicarb:?35 ??Rx?updated?on:?05/01/2024 TREATMENT?ASSESSMENT Blood?pressure?controlled.?No?changes?indicated.? BP?Sit?Pre ??05/03/2024:?151/69 ??04/30/2024:?151/69 ??04/29/2024:?155/75 BP?Stand?Post ??04/30/2024:?146/65 BP?Sit?Post ??05/03/2024:?159/75 ??04/30/2024:?188/90 ??04/29/2024:?164/78 Tx?Duration ??05/03/2024:?3:16 ??04/30/2024:?2:53 ??04/29/2024:?3:03 Missed?Treatments 0?-?last?30?days 0?-?last?60?days FLUID?ASSESSMENT Fluid?status?acceptable.?Interdialytic?weight?gain?acceptable.?No ?changes?indicated.? EDW?(kg) ??05/03/2024:?60.2 ??04/30/2024:?60.7 ??04/29/2024:?60.7 Weight?Pre?(kg) ??05/03/2024:?62.4 ??04/30/2024:?61.0 ??04/29/2024:?63.3 Weight?Post?(kg) ??05/03/2024:?60.4 ??04/30/2024:?60.3 ??04/29/2024:?61.8 PWV?(kg) ??05/03/2024:?0.2 ??04/30/2024:?-0.4 ??04/29/2024:?1.1 UF?Rate?(mL/kg/hr) ??05/03/2024:?10.1 ??04/30/2024:?4 ??04/29/2024:?8 ADEQUACY?ASSESSMENT Adequacy?target?met.?Prescription?compliance?acceptable.? spKt/V,?URR ??04/26/2024:?1.86,?81.0 ??04/07/2024:?1.55,?76.0 ??03/10/2024:?1.62,?76.0 ACCESS?ASSESSMENT ??Access?Type:?CVCatheter ??Access?SubType:?Tunneled ??Access?Status:?Active?(In?Use)?-?10/27/2023 ??Access?Location:?Chest ??Placed:?10/16/2023 Vascular?access?reviewed. ANEMIA?ASSESSMENT HGB?below?goal.?Iron?parameters?acceptable.?GARFIELD?dose?adequat e.?No?changes?indicated.? HGB ??04/29/2024:?7.9 ??04/26/2024:?9.4 ??04/14/2024:?10.0 ?? Ferritin ??02/11/2024:?308.0 ??10/29/2023:?203.0 Mircera,?IVP?(mcg) ??05/03/2024:?100 ??04/19/2024:?75 ??03/03/2024:?100 Iron?Sucrose?(Venofer)?(mg) ??04/30/2024:?100 ??04/16/2024:?100 BMM?ASSESSMENT PTH?controlled.?Calcium?controlled.?Phosphorus?controlled.?BMM?me ds?adherence?acceptable.?No?changes?indicated.? PTH,?Intact ??02/11/2024:?314.0 ??12/10/2023:?351.0 ??10/29/2023:?297.0 ?? Calcium,?Phosphorus ??04/07/2024:?9.4,?4.7 ??03/10/2024:?9.2,?3.3 ??02/11/2024:?9.3,?4.2 Vitamin?D?(Calcitriol)?Oral?(mcg) ??05/03/2024:?0.25 ??04/30/2024:?0.25 ??04/29/2024:?0.25 NUTRITION?ASSESSMENT Potassium?controlled.?Albumin?controlled.?No?changes?indicated.? Potassium,?Albumin ??04/07/2024:?4.8,?3.9 ??03/10/2024:?4.2,?3.9 ??02/11/2024:?4.2,?4.0 ?? eNPCR ??04/07/2024:?1.02 ??03/10/2024:?0.91 ??02/11/2024:?0.93 PHYSICAL?EXAM Exam?Performed.?Vital?Signs?Reviewed.?Lungs?-?Clear.?CV&#160 ;-?RRR.?EXT?-?1+?edema. DIAGNOSIS Chief?Complaint:?N18.6?End?stage?renal?disease Patient?data?updated?05/05/2024?at?1:10?PM Signed?By:?Shelby,?Markie???on?05/05/2024?1:13:50?PM END OF DOCUMENT
--- OUTSIDE RECORDS SUMMARY | 2024-07-04 03:55 | XMS_ITS ---
Author Name Lupe Velasquez Address [address] [place], [place] [id number] Phone [phone] Organization [facility], NA DOCUMENT DISCLAIMER Multiple document versions may exist, please be sure you review the latest version. The information in the [facility] Progress Note Document represents a providers documented clinical note containing certain health and medical information. It may not contain the complete medical history for the patient and should be independently verified. The represented time in the document is Eastern Time PROVIDER ROUNDING NOTE BASIC Patient:?Barbara?L?Chakraborty,?1950,?73y,?F Dialysis?Location:?[place]?-?[place] Attending?Staff Appraiser:?Markie?Shelby Service?Date:?05/10/2024 Service?Provider:?Lupe?Eva,?HEALTHCARE ADMINISTRATION INTERNSHIP I?met?face?to?face?with?the?patient?today. OVERVIEW The?patient?presented?with?ESRD?on?dialysis Primary?cause?of?renal?failure:?Hypertensive?chronic?kidney? disease?with?stage?1?through?stage?4?chronic?kidney?dis ease,?or?unspecified?chronic?kidney?disease Comments:?dm/htn,?underlying?schizoaffective?disorder hgb?dropped,?micera?adjusted,?repeat?hgb.?otherwise?stable Seen?on?dialysis?tolerating?well? Medications?and?labs?reviewed. LAST?HOSPITALIZATION Discharge?Diagnosis:?G93.41?Metabolic?encephalopathy Admission?Date?04/19/24 Discharge?Date?04/23/24 DIALYSIS?PRESCRIPTION ??IHD?3x?Week?Start?date:?05/03/24 ??Dialyzer:?180NRe?Optiflux ??BFR:?350 ??DFR:?Autoflow?2 ??Potassium:?2.0 ??Sodium:?137 ??EDW:?60.2 ??Duration:?3:15 ??Calcium:?2.5 ??Bicarb:?35 ??Rx?updated?on:?05/01/2024 TREATMENT?ASSESSMENT BP?Sit?Pre ??05/07/2024:?151/54 ??05/05/2024:?153/67 ??05/03/2024:?151/69 BP?Stand?Post ??05/07/2024:?129/62 ??05/05/2024:?123/60 BP?Sit?Post ??05/07/2024:?129/58 ??05/05/2024:?160/71 ??05/03/2024:?159/75 Tx?Duration ??05/07/2024:?3:18 ??05/05/2024:?3:00 ??05/03/2024:?3:16 Missed?Treatments 0?-?last?30?days 0?-?last?60?days FLUID?ASSESSMENT EDW?(kg) ??05/07/2024:?60.2 ??05/05/2024:?60.2 ??05/03/2024:?60.2 Weight?Pre?(kg) ??05/07/2024:?61.6 ??05/05/2024:?61.6 ??05/03/2024:?62.4 Weight?Post?(kg) ??05/07/2024:?61.0 ??05/05/2024:?60.3 ??05/03/2024:?60.4 PWV?(kg) ??05/07/2024:?0.8 ??05/05/2024:?0.1 ??05/03/2024:?0.2 UF?Rate?(mL/kg/hr) ??05/07/2024:?3 ??05/05/2024:?7.2 ??05/03/2024:?10.1 ADEQUACY?ASSESSMENT spKt/V,?URR ??04/26/2024:?1.86,?81.0 ??04/07/2024:?1.55,?76.0 ??03/10/2024:?1.62,?76.0 ACCESS?ASSESSMENT ??Access?Type:?CVCatheter ??Access?SubType:?Tunneled ??Access?Status:?Active?(In?Use)?-?10/27/2023 ??Access?Location:?Chest ??Placed:?10/16/2023 ANEMIA?ASSESSMENT HGB ??05/05/2024:?9.1 ??04/29/2024:?7.9 ??04/26/2024:?9.4 ?? Ferritin ??02/11/2024:?308.0 ??10/29/2023:?203.0 Mircera,?IVP?(mcg) ??05/03/2024:?100 ??04/19/2024:?75 ??03/03/2024:?100 Iron?Sucrose?(Venofer)?(mg) ??05/07/2024:?100 ??04/30/2024:?100 BMM?ASSESSMENT PTH,?Intact ??02/11/2024:?314.0 ??12/10/2023:?351.0 ??10/29/2023:?297.0 ?? Calcium,?Phosphorus ??04/07/2024:?9.4,?4.7 ??03/10/2024:?9.2,?3.3 ??02/11/2024:?9.3,?4.2 Vitamin?D?(Calcitriol)?Oral?(mcg) ??05/07/2024:?0.25 ??05/05/2024:?0.25 ??05/03/2024:?0.25 NUTRITION?ASSESSMENT Potassium,?Albumin ??04/07/2024:?4.8,?3.9 ??03/10/2024:?4.2,?3.9 ??02/11/2024:?4.2,?4.0 ?? eNPCR ??04/07/2024:?1.02 ??03/10/2024:?0.91 ??02/11/2024:?0.93 DIAGNOSIS Chief?Complaint:?N18.6?End?stage?renal?disease Patient?data?updated?05/10/2024?at?2:23?PM Signed?By:?Eva,?Lupe,?HE[employer]MINISTRATION [employer]??on?05/10/2024?6:50:38 PM END OF DOCUMENT
--- OUTSIDE RECORDS SUMMARY | 2024-07-04 03:55 | XMS_ITS ---
Author Name Markie Ryan Address [address] [place] [id number] Phone [phone] Organization [facility], NA DOCUMENT DISCLAIMER Multiple document versions may exist, please be sure you review the latest version. The information in the [facility] Progress Note Document represents a providers documented clinical note containing certain health and medical information. It may not contain the complete medical history for the patient and should be independently verified. The represented time in the document is Eastern Time PROVIDER ROUNDING NOTE COMPREHENSIVE Patient:?Barbara?L?Chakraborty,?1950,?73y,?F Dialysis?Location:?[place]?-?[place] Attending?Music Department Chair:?Reza Service?Date:?05/26/2024 Service?Provider:?Markei?Shelby,? I?met?face?to?face?with?the?patient?today. OVERVIEW The?patient?presented?with?ESRD?on?dialysis Primary?cause?of?renal?failure:?Hypertensive?chronic?kidney? disease?with?stage?1?through?stage?4?chronic?kidney?dis ease,?or?unspecified?chronic?kidney?disease Comments:?dm/htn,?underlying?schizoaffective?disorder hgb?improved,?doing?ok?overall family?plans?on?HHD?training?which?would?be?a?good&#160 ;idea?if?able?as?one?of?them?has?to?stay?with her?in-center Medications?and?labs?reviewed. LAST?HOSPITALIZATION Discharge?Diagnosis:?G93.41?Metabolic?encephalopathy Admission?Date?04/19/24 Discharge?Date?04/23/24 DIALYSIS?PRESCRIPTION ??IHD?3x?Week?Start?date:?05/28/24 ??Dialyzer:?180NRe?Optiflux ??BFR:?350 ??DFR:?Autoflow?2 ??Potassium:?2.0 ??Sodium:?137 ??EDW:?58.5 ??Duration:?3:15 ??Calcium:?2.5 ??Bicarb:?35 ??Rx?updated?on:?05/25/2024 TREATMENT?ASSESSMENT Blood?pressure?controlled.?No?changes?indicated.? BP?Sit?Pre ??05/25/2024:?180/82 ??05/21/2024:?160/68 ??05/18/2024:?143/75 BP?Stand?Post ??05/21/2024:?154/80 ??05/18/2024:?144/64 BP?Sit?Post ??05/25/2024:?176/71 ??05/21/2024:?178/84 ??05/18/2024:?150/66 Tx?Duration ??05/25/2024:?3:02 ??05/21/2024:?2:42 ??05/18/2024:?3:15 Missed?Treatments 0?-?last?30?days 0?-?last?60?days FLUID?ASSESSMENT Fluid?status?acceptable.?Interdialytic?weight?gain?acceptable.?No ?changes?indicated.? EDW?(kg) ??05/25/2024:?60.2 ??05/21/2024:?60.2 ??05/18/2024:?60.2 Weight?Pre?(kg) ??05/25/2024:?58.9 ??05/21/2024:?61.4 ??05/18/2024:?60.8 Weight?Post?(kg) ??05/25/2024:?58.4 ??05/21/2024:?60.9 ??05/18/2024:?60.8 PWV?(kg) ??05/25/2024:?-1.8 ??05/21/2024:?0.7 ??05/18/2024:?0.6 UF?Rate?(mL/kg/hr) ??05/25/2024:?2.8 ??05/21/2024:?3 ??05/18/2024:?0 ADEQUACY?ASSESSMENT Adequacy?target?met.?Prescription?compliance?acceptable.? spKt/V,?URR ??04/26/2024:?1.86,?81.0 ??04/07/2024:?1.55,?76.0 ??03/10/2024:?1.62,?76.0 ACCESS?ASSESSMENT ??Access?Type:?CVCatheter ??Access?SubType:?Tunneled ??Access?Status:?Active?(In?Use)?-?10/27/2023 ??Access?Location:?Chest ??Placed:?10/16/2023 Vascular?access?reviewed. ANEMIA?ASSESSMENT HGB?at?goal.?Iron?parameters?acceptable.?GARFIELD?dose?adequate.& #160;No?changes?indicated.? HGB,?TSAT ??05/18/2024:?10.1,?- ??05/12/2024:?9.7,?23.0 ??05/05/2024:?9.1,?- ?? Ferritin ??05/12/2024:?537.0 ??02/11/2024:?308.0 Mircera,?IVP?(mcg) ??05/16/2024:?150 ??05/03/2024:?100 ??04/19/2024:?75 Iron?Sucrose?(Venofer)?(mg) ??05/21/2024:?100 ??05/14/2024:?100 ??05/07/2024:?100 BMM?ASSESSMENT PTH?controlled.?Calcium?controlled.?Phosphorus?controlled.?BMM?me ds?adherence?acceptable.?No?changes?indicated.? PTH,?Intact ??05/12/2024:?250.0 ??02/11/2024:?314.0 ??12/10/2023:?351.0 ?? Calcium,?Phosphorus ??05/12/2024:?9.3,?4.3 ??04/07/2024:?9.4,?4.7 ??03/10/2024:?9.2,?3.3 Vitamin?D?(Calcitriol)?Oral?(mcg) ??05/25/2024:?0.25 ??05/21/2024:?0.25 ??05/18/2024:?0.25 NUTRITION?ASSESSMENT Potassium?controlled.?Albumin?controlled.?No?changes?indicated.? Potassium,?Albumin ??05/12/2024:?4.5,?3.9 ??04/07/2024:?4.8,?3.9 ??03/10/2024:?4.2,?3.9 ?? eNPCR ??04/07/2024:?1.02 ??03/10/2024:?0.91 ??02/11/2024:?0.93 PHYSICAL?EXAM Exam?Performed.?Vital?Signs?Reviewed.?Lungs?-?Clear.?CV&#160 ;-?RRR.?EXT?-?No?edema. DIAGNOSIS Chief?Complaint:?N18.6?End?stage?renal?disease Patient?data?updated?05/26/2024?at?1:22?PM Signed?By:?Shelby,?Markie???on?05/26/2024?1:24:37?PM END OF DOCUMENT
--- OUTSIDE RECORDS SUMMARY | 2024-07-04 03:55 | XMS_ITS ---
Author Name Markie Ryan Address [address] [place] [id number] Phone [phone] Organization [facility], NA DOCUMENT DISCLAIMER Multiple document versions may exist, please be sure you review the latest version. The information in the [facility] Progress Note Document represents a providers documented clinical note containing certain health and medical information. It may not contain the complete medical history for the patient and should be independently verified. The represented time in the document is Eastern Time PROVIDER ROUNDING NOTE BASIC Patient:?Barbara?L?Mylene,?1950,?73y,?F Dialysis?Location:?[place]?-?[place] Attending?Asset Management Lead:?Reza Service?Date:?12/18/2023 Service?Provider:?Markie?Shelby,? I?met?face?to?face?with?the?patient?today. OVERVIEW The?patient?presented?with?ESRD?on?dialysis Primary?cause?of?renal?failure:?Hypertensive?chronic?kidney? disease?with?stage?1?through?stage?4?chronic?kidney?dis ease,?or?unspecified?chronic?kidney?disease Comments:?new?hd?start,?dm/htn,?underlying?schizoaffective?disord er.?doing?ok?with?HD?thus?far bp?elevated?initially?and?then?improves.?continue?to?slowly& #160;decrease?dw?and?monitor may?not?be?a?candidate?for?alternate?access?with?tremors Medications?and?labs?reviewed. LAST?HOSPITALIZATION Discharge?Diagnosis:?R41.82?Altered?mental?status,?unspecified Admission?Date?10/29/23 Discharge?Date?11/03/23 DIALYSIS?PRESCRIPTION ??IHD?3x?Week?Start?date:?12/03/23 ??Dialyzer:?180NRe?Optiflux ??BFR:?350 ??DFR:?Autoflow?2 ??Potassium:?2.0 ??Sodium:?137 ??EDW:?59.5 ??Duration:?3:30 ??Calcium:?2.5 ??Bicarb:?35 ??Rx?updated?on:?12/02/2023 TREATMENT?ASSESSMENT BP?Sit?Pre ??12/17/2023:?199/83 ??12/15/2023:?181/78 ??12/12/2023:?206/96 BP?Stand?Post ??12/17/2023:?175/72 ??12/12/2023:?171/76 BP?Sit?Post ??12/17/2023:?184/88 ??12/15/2023:?160/78 ??12/12/2023:?156/62 Tx?Duration ??12/17/2023:?2:47 ??12/15/2023:?3:09 ??12/12/2023:?3:08 Missed?Treatments 0?-?last?30?days 0?-?last?60?days FLUID?ASSESSMENT EDW?(kg) ??12/17/2023:?59.5 ??12/15/2023:?59.5 ??12/12/2023:?59.5 Weight?Pre?(kg) ??12/17/2023:?61.1 ??12/15/2023:?60.5 ??12/12/2023:?61.2 Weight?Post?(kg) ??12/17/2023:?61.1 ??12/15/2023:?60.2 ??12/12/2023:?61.4 PWV?(kg) ??12/17/2023:?1.6 ??12/15/2023:?0.7 ??12/12/2023:?1.9 UF?Rate?(mL/kg/hr) ??12/17/2023:?0 ??12/15/2023:?1.6 ??12/12/2023:?-1 ADEQUACY?ASSESSMENT spKt/V,?URR ??12/15/2023:?1.58,?76.0 ??12/10/2023:?1.33,?70.0 ??10/29/2023:?1.66,?79.0 ACCESS?ASSESSMENT ??Access?Type:?CVCatheter ??Access?SubType:?Tunneled ??Access?Status:?Active?(In?Use)?-?10/27/2023 ??Access?Location:?Chest ??Placed:?10/16/2023 ANEMIA?ASSESSMENT HGB,?TSAT ??12/10/2023:?8.8,?29.0 ??12/03/2023:?9.6,?- ??11/26/2023:?9.2,?- ?? Ferritin ??10/29/2023:?203.0 Iron?Sucrose?(Venofer)?(mg) ??12/12/2023:?100 ??12/05/2023:?100 ??11/28/2023:?100 BMM?ASSESSMENT PTH,?Intact ??12/10/2023:?351.0 ??10/29/2023:?297.0 ?? Calcium,?Phosphorus ??12/10/2023:?8.9,?4.6 ??10/29/2023:?9.2,?4.2 Vitamin?D?(Calcitriol)?Oral?(mcg) ??12/17/2023:?0.25 ??12/15/2023:?0.25 ??12/12/2023:?0.25 NUTRITION?ASSESSMENT Potassium,?Albumin ??12/10/2023:?4.9,?3.5 ??10/29/2023:?5.8,?3.3 ?? eNPCR ??12/15/2023:?0.78 ??12/10/2023:?0.75 DIAGNOSIS Chief?Complaint:?N18.6?End?stage?renal?disease Patient?data?updated?12/18/2023?at?10:08?AM Signed?By:?Shelby,?Markie,???on?12/18/2023?10:08:49?AM END OF DOCUMENT
--- OUTSIDE RECORDS SUMMARY | 2024-07-04 03:55 | XMS_ITS ---
Author Name Lupe Velasquez Address [address] [place] [id number] Phone [phone] Organization [facility], NA DOCUMENT DISCLAIMER Multiple document versions may exist, please be sure you review the latest version. The information in the [facility] Progress Note Document represents a providers documented clinical note containing certain health and medical information. It may not contain the complete medical history for the patient and should be independently verified. The represented time in the document is Eastern Time PROVIDER ROUNDING NOTE BASIC Patient:?Barbara?L?Mylene,?1950,?73y,?F Dialysis?Location:?[place]?-?[place] Attending?Process Safety Specialist:?Markie?Shelby Service?Date:?12/05/2023 Service?Provider:?Lupe?Eva,?VETERINARIAN I?met?face?to?face?with?the?patient?today. OVERVIEW The?patient?presented?with?ESRD?on?dialysis Primary?cause?of?renal?failure:?Hypertensive?chronic?kidney? disease?with?stage?1?through?stage?4?chronic?kidney?dis ease,?or?unspecified?chronic?kidney?disease Comments:?new?hd?start,?dm/htn,?underlying?schizoaffective?disord er.?doing?ok?with?HD?thus?far bp?elevated?initially?and?then?improves.?continue?to?slowly& #160;decrease?dw?and?monitor may?not?be?a?candidate?for?alternate?access?with?tremors Patient?seen?on?dialysis?tolerating?well? Medications?and?labs?reviewed. LAST?HOSPITALIZATION Discharge?Diagnosis:?R41.82?Altered?mental?status,?unspecified Admission?Date?10/29/23 Discharge?Date?11/03/23 DIALYSIS?PRESCRIPTION ??IHD?3x?Week?Start?date:?12/03/23 ??Dialyzer:?180NRe?Optiflux ??BFR:?350 ??DFR:?Autoflow?2 ??Potassium:?2.0 ??Sodium:?137 ??EDW:?59.5 ??Duration:?3:30 ??Calcium:?2.5 ??Bicarb:?35 ??Rx?updated?on:?12/02/2023 TREATMENT?ASSESSMENT BP?Stand?Pre ??12/03/2023:?164/75 BP?Sit?Pre ??12/03/2023:?178/80 ??12/01/2023:?209/90 ??11/28/2023:?207/87 BP?Stand?Post ??12/01/2023:?144/75 ??11/28/2023:?182/80 BP?Sit?Post ??12/03/2023:?193/88 ??12/01/2023:?130/66 ??11/28/2023:?163/71 Tx?Duration ??12/03/2023:?2:44 ??12/01/2023:?3:00 ??11/28/2023:?2:56 Missed?Treatments 0?-?last?30?days 0?-?last?60?days FLUID?ASSESSMENT EDW?(kg) ??12/03/2023:?59.5 ??12/01/2023:?60.0 ??11/28/2023:?60.0 Weight?Pre?(kg) ??12/03/2023:?59.1 ??12/01/2023:?60.1 ??11/28/2023:?61.2 Weight?Post?(kg) ??12/03/2023:?58.8 ??12/01/2023:?59.9 ??11/28/2023:?60.9 PWV?(kg) ??12/03/2023:?-0.7 ??12/01/2023:?-0.1 ??11/28/2023:?0.9 UF?Rate?(mL/kg/hr) ??12/03/2023:?1.9 ??12/01/2023:?1.1 ??11/28/2023:?1.7 ADEQUACY?ASSESSMENT spKt/V,?URR ??10/29/2023:?1.66,?79.0 ACCESS?ASSESSMENT ??Access?Type:?CVCatheter ??Access?SubType:?Tunneled ??Access?Status:?Active?(In?Use)?-?10/27/2023 ??Access?Location:?Chest ??Placed:?10/16/2023 ANEMIA?ASSESSMENT HGB ??12/03/2023:?9.6 ??11/26/2023:?9.2 ??11/19/2023:?9.2 ?? Ferritin ??10/29/2023:?203.0 Iron?Sucrose?(Venofer)?(mg) ??11/28/2023:?100 ??11/21/2023:?100 ??11/14/2023:?100 BMM?ASSESSMENT PTH,?Intact ??10/29/2023:?297.0 ?? Calcium,?Phosphorus ??10/29/2023:?9.2,?4.2 Vitamin?D?(Calcitriol)?Oral?(mcg) ??12/03/2023:?0.25 ??12/01/2023:?0.25 ??11/28/2023:?0.25 NUTRITION?ASSESSMENT Potassium,?Albumin ??10/29/2023:?5.8,?3.3 DIAGNOSIS Chief?Complaint:?N18.6?End?stage?renal?disease Patient?data?updated?12/05/2023?at?3:50?PM Signed?By:?Eva,?Lupe,?VETERINARIAN??on?12/06/2023?5:40:14 AM END OF DOCUMENT
--- OUTSIDE RECORDS SUMMARY | 2024-07-04 03:55 | XMS_ITS ---
Author Name [facility] Address [address] [place], [place] [address] Phone [phone] Organization [facility] e, NA DOCUMENT DISCLAIMER Multiple document versions may exist, please be sure you review the latest version. The information in the [facility] Continuity of Care Document represents a summary of certain health and medical information. It may not contain the complete medical history for the patient and should be independently verified. The represented time in the document is Eastern Time. PROBLEMS Problem Code Status Onset Date Covid-19 U07.1 Active April 28 Encounter for immunization Z23 Active O ctober 2023 Gastrointestinal hemorrhage, unspecified K92.2 Active January 29, 2024 Nausea R11.0 Active January 16, 2024 End stage renal disease N18.6 Active December 30, 2023 Encounter for adequacy testing for hemodialysis Z49.31 Active December 14, 2023 Moderate protein-calorie malnutrition E44.0 Act amanda November 03, 2023 Altered mental status, unspecified R41.82 Active October 29, 2023 Shortness of breath R06.02 Active 2023 Encounter for screening for respiratory tuberculosis Z11.1 Active 2023 Secondary hyperparathyroidism of renal origin N25.81 Active 2023 Chest pain, unspecified R07.9 Active 2023 Anaphylactic shock, unspecified, initial encounter T78 .2XXA Active 2023 Allergy, unspecified, initial encounter T78.40XA A ctive 2023 Schizophrenia, unspecified F20.9 Active M ay 2023 Type 2 diabetes mellitus wit h other specified complication E11.69 Active October 21, 2023 Parkinsonism, unspecified G20.C Active Ma y 2023 Alzheimer's disease with late onset G30.1 Activ e October 21, 2023 Iron deficiency anemia, unspecified D50.9 Activ e October 21, 2023 Pulmonary hypertension, unspecified I27.20 Activ e October 21, 2023 Mixed hyperlipidemia E78.2 Active October 21, 2023 Chronic diastolic (congestive) heart failure I50.32 Active October 21, 2023 Acquired absence of other right toe(s) Z89.421 Ac tive October 21, 2023 Anemia in chronic kidney disease D63.1 Active October 21, 2023 technician terminal and repeater (current) use of insulin Z79.4 Active October 21, 2023 Chronic kidney disease, stage 4 (severe) N18.4 Active October 21, 2023 Hypertensive heart and chron ic kidney disease with heart failure and stage 1 through stage 4 chronic kidney disease, or unspecified chronic kidney disease I13.0 Active October 21, 2023 Type 2 diabetes mellitus wit h diabetic neuropathy, unspecified E11.40 Active October 21, 2023 Type 2 diabetes mellitus wit h diabetic chronic kidney disease E11.22 Active October 21, 2023 Dementia in other diseases c lassified elsewhere, unspecified severity, without behavioral disturbance, psychotic disturbance, mood disturbance, and anxiety F02.80 Active October 21, 2023 Dependence on renal dialysis Z99.2 Active October 21, 2023 Secondary osteoarthritis, 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 A ctive October 21, 2023 ALLERGIES AND ADVERSE REACTIONS No Known Allergies SOCIAL HISTORY Tobacco Use Status Tobacco Type Never smoker - Caregiver Characteristics Need Level ADL Type Relationship of Caregiver Requires some assistance Dressing Shoppi ng Meal preparation Laundry Housekeeping M edication management Managing medical appointments Managing finances Family Characteristics of Home environment Housing Status Patient Resides With House Discharged from [facility], resides with daughter (Areli) Gender and Sex Information Gender Identity Sexual Orientation Female Heterosexual MEDICATIONS Prescribed Medications for Dialysis Treatments Medication Instructions Dosage Route Start Date End Date Stat us Heparin Sodium (Porcine) 1,000 Units/mL Catheter Lock Arterial Every Treatment 2000 units Arterial Red Port June 06, 2024 June 05, 2025 Active Heparin Sodium (Porcine) 1,000 Units/mL Catheter Lock Venous Every Treatment 2000 units Venous Blue Port June 06, 2024 June 05, 2025 Active Heparin Sodium (Porcine) 1,000 Units/mL Systemic Bolus, Every Treatment, Total treatment minutes 195 3000 units Intravenous - push June 06, 2024 June 05, 2025 Active Iron Sucrose (Venofer) 1X Week 100 mg Intravenous - push June 07, 2024 June 06, 2025 Active Heparin Sodium (Porcine) 1,000 Units/mL Catheter Lock Arterial Every Treatment 2500 units Arterial Red Port October 29, 2023 October 27, 2024 Discontinued Heparin Sodium (Porcine) 1,000 Units/mL Catheter Lock Venous Every Treatment 2500 units Venous Blue [place] October 29, 2023 October 27, 2024 Discontinued Heparin Sodium (Porcine) 1,000 Units/mL Systemic Bolus, Every Treatment, Total treatment minutes 210 3000 units Intravenous - push October 29, 2023 October 27, 2024 Discontinued Iron Sucrose (Venofer) 1X Week 100 mg Intravenous - push April 02, 2024 March 25, 2025 Discontinued Vitamin D (Calcitriol) Oral During Dialysis, 3X Week 0.25 mcg Oral November 07, 2023 November 05, 2024 Discontinued Home Medications Medication Instructions Dosage Route Start Date End Date Stat us acetaminophen 500 mg Take by mouth every eight hours as needed for pain 2 tablet ORAL December 12, 2023 Active aspirin 81 mg ORAL February 02, 2024 Active atorvastatin 20 mg Take by mouth every night 1 tablet ORAL June 13, 2024 Active atorvastatin 20 mg Take by mouth every night at bedtime 1 tablet ORAL June 13, 2024 Active benztropine 2 mg Take by mouth every night 1 tablet ORAL May 10, 2024 Active calcitriol 0.25 mcg Take by mouth three times a week 1 capsule ORAL June 07, 2024 Active carvedilol 3.125 mg Take by mouth twice a day with meals 1 tablet ORAL May 10, 2024 Active Easy Touch 32 gauge x 5/32 Use subcutaneously four times a day 1 needle subcutaneously February 02, 2024 Active ferrous sulfate 325 mg (65 mg iron) Take by mouth once a day 1 tablet ORAL May 10, 2024 Active fluticasone propionate 50 mcg/actuation [place] into both nostrils once a day 1 spray NASAL November 19, 2023 Active gabapentin 100 mg Take by mouth as directed 100 mg ORAL June 07, 2024 Active hydralazine 25 mg Take by mouth twice a day 1 tablet ORAL February 02, 2024 Active insulin glargine U-300 conc 300 unit/mL (1.5 mL) Inject subcutaneously every night 15 unit SUBCUTANEOUS November 19, 2023 Active insulin lispro 100 unit/mL Inject subcutaneously three times a day with meals 4 unit SUBCUTANEOUS November 19, 2023 Active lidocaine 4% Apply to skin once a day as needed for pain TOPICAL November 19, 2023 Active nifedipine 60 mg Take by mouth every evening 1 tablet ORAL June 13, 2024 Active pantoprazole 40 mg Take by mouth twice a day 1 tablet ORAL February 02, 2024 Active polyethylene glycol 3350 17 gram Take by mouth once a day as needed 1 packet ORAL November 19, 2023 Active risperidone 2 mg Take by mouth every night 1 tablet ORAL February 02, 2024 Active Velphoro 500 mg Take by mouth three times a day with meals 1 tablet ORAL February 27, 2024 Active diclofenac sodium 1% TOPICAL June 06, 2024 Discontinued sucralfate 100 mg/mL Take by mouth four times a day with meals 10 ml ORAL June 06, 2024 Discontinued VITAL SIGNS Post-Treatment Vital Signs Vital Sign Value Date / Time Blood Pressure-sitting 127/61 mmHg June 09:24 AM Blood Pressure-standing 104/60 mmHg June 24, 2024 09:24 AM Heart Rate 87 beats per minute June 24, 2024 09:24 AM Temperature 97.7 deg. F June 24, 2024 09:24 AM Weight Vital Sign Value Date / Time Estimated Dry Weight 60.5 kg May 11:59 PM Pre-Dialysis 60.2 kg June 24, 2024 09:24 AM Post-Dialysis 60.9 kg June 24, 2024 09:24 AM Other Other Value Date / Time Height 157 cm November 05, 2023 12: 00 AM Body Mass Index 24.54 kg/m2 June 22, 2024 09:06 PM HEALTH CONCERNS Tuberculosis Testing TST Date Administered TST Date Read TST Result 10/29/2023 No information available No info rmation available LAB RESULTS Hematology Result Type Result Value Relevant Reference Range Interpretation Date Folate, Serum 7.2 ng/mL No Reference Range Provided - October 29, 2023 WBC (No Diff) 9.24 1000/mcL 4.80 - 10.80 1000/mcL - January 07, 2024 Neutrophils 71.4 % 40.0 - 75.0 % - January 06 024 UIBC/TIBC 96 mcg/dL 155 - 355 mcg/dL Low January 07, 2024 Transferrin Sat. (Calc) 60 % 20 - 55 % High January 07, 2024 TIBC (Calc) 239 mcg/dL 185 - 515 mcg/dL - December Platelets 372 1000/mcL 130 - 400 1000/mcL - January 07, 2024 Neutrophils 67.5 % 40.0 - 75.0 % - February 11, 2024 WBC (No Diff) 7.24 1000/mcL 4.80 - 10.80 1000/mcL - February 11, 2024 Platelets 286 1000/mcL 130 - 400 1000/mcL - February 11, 2024 Ferritin 308 ng/mL 10 - 291 ng/mL High February 11, 2024 Transferrin Sat. (Calc) 24 % 20 - 55 % - February 11, 2024 TIBC (Calc) 272 mcg/dL 185 - 515 mcg/dL - February 11, 2024 UIBC/TIBC 208 mcg/dL 155 - 355 mcg/dL - January 212023 Platelets 248 1000/mcL 130 - 400 1000/mcL - March 10, 2024 Neutrophils 61.4 % 40.0 - 75.0 % - March 10, 2024 WBC (No Diff) 7.26 1000/mcL 4.80 - 10.80 1000/mcL - March 10, 2024 TIBC (Calc) 247 mcg/dL 185 - 515 mcg/dL - 2023 UIBC/TIBC 206 mcg/dL 155 - 355 mcg/dL - 2023 Transferrin Sat. (Calc) 17 % 20 - 55 % Low March 10, 2024 Basophils 0.2 % 0.0 - 1.5 % - April 07 024 Eosinophil 1.2 % 0.0 - 7.0 % - April 07 024 Monocytes 4.3 % 3.0 - 10.0 % - April 07, 2024 Lymphocytes 15.0 % 19.0 - 48.0 % Low March Neutrophils 77.9 % 40.0 - 75.0 % High March Platelets 252 1000/mcL 130 - 400 1000/mcL - April 07, 2024 Hemoglobin x 3 32.7 % 36.0 - 48.0 % Low April 07, 2024 RDW 15.5 % 11.5 - 14.5 % High April 07, 2024 MCHC 32.1 g/dL 30.0 - 36.0 g/dL - April 07, 2024 MCH 30.7 pg 27.0 - 31.0 pg - March WBC (No Diff) 13.68 1000/mcL 4.80 - 10.80 1000/mcL High April 07, 2024 CELENA 1.3 % 0.0 - 4.0 % - April 07 024 Transferrin Sat. (Calc) 44 % 20 - 55 % - April 07, 2024 TIBC (Calc) 259 mcg/dL 185 - 515 mcg/dL - April 07, 2024 UIBC/TIBC 146 mcg/dL 155 - 355 mcg/dL Low April 07, 2024 Iron 113 mcg/dL 30 - 160 mcg/dL - March 222023 Hemoglobin x 3 30 % 36.0 - 48.0 % Low April 14, 2024 Hemoglobin x 3 28.2 % 36.0 - 48.0 % Low Nove[facility] r 2023 Hemoglobin x 3 23.7 % 36.0 - 48.0 % Low Novembe r 2023 Hemoglobin x 3 27.3 % 36.0 - 48.0 % Low Novembe r 2023 Neutrophils 68.8 % 40.0 - 75.0 % - April 232023 Lymphocytes 20.2 % 19.0 - 48.0 % - April 232023 Monocytes 5.6 % 3.0 - 10.0 % - May 12, 2024 Eosinophil 1.5 % 0.0 - 7.0 % - May 12, 2024 Basophils 1.0 % 0.0 - 1.5 % - May 12, 2024 CELENA 3.0 % 0.0 - 4.0 % - May 12, 2024 WBC (No Diff) 7.86 1000/mcL 4.80 - 10.80 1000/mcL - May 12, 2024 MCH 30.6 pg 27.0 - 31.0 pg - April 232023 MCHC 30.9 g/dL 30.0 - 36.0 g/dL - May 12, 2024 RDW 18.8 % 11.5 - 14.5 % High April Hemoglobin x 3 29.1 % 36.0 - 48.0 % Low Novem[facility] r 2023 Platelets 327 1000/mcL 130 - 400 1000/mcL - May 12, 2024 UIBC/TIBC 164 mcg/dL 155 - 355 mcg/dL - May 12, 2024 TIBC (Calc) 212 mcg/dL 185 - 515 mcg/dL - r 2023 Transferrin Sat. (Calc) 23 % 20 - 55 % - May 12 Ferritin 537 ng/mL 10 - 291 ng/mL High April 232023 Iron 48 mcg/dL 30 - 160 mcg/dL - May 12, 2024 Hemoglobin x 3 30.3 % 36.0 - 48.0 % Low Novem[facility] r 2023 Hemoglobin x 3 29.4 % 36.0 - 48.0 % Low [facility] r 2023 Hemoglobin x 3 32.4 % 36.0 - 48.0 % Low [facility] r 2023 Neutrophils 71.5 % 40.0 - 75.0 % - May 222023 Eosinophil 2.3 % 0.0 - 7.0 % - June 06, 2024 Monocytes 6.3 % 3.0 - 10.0 % - June 06, 2024 Lymphocytes 17.7 % 19.0 - 48.0 % Low May 222023 Ferritin 613 ng/mL 10 - 291 ng/mL High May 222023 UIBC/TIBC 136 mcg/dL 155 - 355 mcg/dL Low June 06, 2024 Iron 67 mcg/dL 30 - 160 mcg/dL - June 06, 2024 TIBC (Calc) 203 mcg/dL 185 - 515 mcg/dL - [facility] 2023 Hemoglobin x 3 33.6 % 36.0 - 48.0 % Low [facility] 2023 HGB 11.2 g/dL 12.0 - 16.0 g/dL Low June 06, 2024 RDW 20.4 % 11.5 - 14.5 % High May MCHC 31.2 g/dL 30.0 - 36.0 g/dL - June 06, 2024 RBC 3.46 mill/mcL 4.20 - 5.40 mill/mcL Low June 06, 2024 WBC (No Diff) 8.42 1000/mcL 4.80 - 10.80 1000/mcL - June 06, 2024 CELENA 1.8 % 0.0 - 4.0 % - June 06, 2024 Basophils 0.5 % 0.0 - 1.5 % - June 06, 2024 MCH 32.4 pg 27.0 - 31.0 pg High May 222023 HCT 36.0 % 37.0 - 47.0 % Low May Transferrin Sat. (Calc) 33 % 20 - 55 % - June 06 Reticulocyte 4.45 % 0.80 - 2.10 % High June 06, 2024 Platelets 357 1000/mcL 130 - 400 1000/mcL - June 06, 2024 Folate, Serum 7.1 ng/mL No Reference Range Provided - June 06, 2024 Hemoglobin x 3 32.4 % 36.0 - 48.0 % Low [facility] r 2023 HGB 10.8 g/dL 12.0 - 16.0 g/dL Low June 12, 2024 Transferrin Sat. (Calc) 41 % 20 - 55 % - June 23, 2024 TIBC (Calc) 227 mcg/dL 185 - 515 mcg/dL - June 23, 2024 Iron 94 mcg/dL 30 - 160 mcg/dL - June UIBC/TIBC 133 mcg/dL 155 - 355 mcg/dL Low June 23, 2024 WBC (No Diff) 6.41 1000/mcL 4.80 - 10.80 1000/mcL - June 23, 2024 CELENA 1.5 % 0.0 - 4.0 % - June 23 Neutrophils 65.4 % 40.0 - 75.0 % - June Basophils 3.8 % 0.0 - 1.5 % High June 23 025 Eosinophil 2.3 % 0.0 - 7.0 % - June 23 025 Monocytes 5.3 % 3.0 - 10.0 % - June 23, 2024 Lymphocytes 21.6 % 19.0 - 48.0 % - June RBC 3.67 mill/mcL 4.20 - 5.40 mill/mcL Low June 23, 2024 Reticulocyte 1.32 % 0.80 - 2.10 % - June MCHC 31.2 g/dL 30.0 - 36.0 g/dL - June 23, 2024 MCH 31.9 pg 27.0 - 31.0 pg High June HCT 37.5 % 37.0 - 47.0 % - June 23, 2024 Platelets 256 1000/mcL 130 - 400 1000/mcL - June 23, 2024 Hemoglobin x 3 35.1 % 36.0 - 48.0 % Low June 23, 2024 HGB 11.7 g/dL 12.0 - 16.0 g/dL Low June 23, 2024 RDW 18.0 % 11.5 - 14.5 % High June 23, 2024 Metabolic/Renal Result Type Result Value Relevant Referen ce Range Interpretation Date Vitamin B12 520 pg/mL 211 - 911 pg/mL - October 29, 2023 Hemoglobin A1c 6.1 % 4.8 - 5.9 % High January BUN/Creat Ratio 13.4 10.0 - 20.0 - April 07, 2024 Creatinine, Serum 4.93 mg/dL 0.60 - 1.30 mg/dL High April 07, 2024 BUN 66 mg/dL 6 - 19 mg/dL High April 07, 2024 Bicarbonate 22 mEq/L 22 - 29 mEq/L - March Chloride 107 mEq/L 96 - 108 mEq/L - March Potassium 4.8 mEq/L 3.5 - 5.1 mEq/L - March 222023 Sodium 145 mEq/L 136 - 145 mEq/L - March 222023 URR, Calc 76 % 65 - 80 % - April 07 BUN, Post 16 mg/dL 6 - 19 mg/dL - April 07, 2024 BUN, Post 13 mg/dL 6 - 19 mg/dL - April 26, 2024 URR, Calc 81 % 65 - 80 % High April 26, 024 BUN 70 mg/dL 6 - 19 mg/dL High April 26, 2024 Potassium 4.5 mEq/L 3.5 - 5.1 mEq/L - May 12, 2024 Chloride 107 mEq/L 96 - 108 mEq/L - April 232023 Bicarbonate 25 mEq/L 22 - 29 mEq/L - April 232023 Creatinine, Serum 4.49 mg/dL 0.60 - 1.30 mg/dL High May 12, 2024 Sodium 144 mEq/L 136 - 145 mEq/L - May 12, 2024 Hemoglobin A1c 7.2 % 4.8 - 5.9 % High May 12, 2024 BUN 64 mg/dL 6 - 19 mg/dL High May 25, 2024 BUN, Post 14 mg/dL 6 - 19 mg/dL - May 25, 2024 URR, Calc 78 % 65 - 80 % - May 25 024 BUN 40 mg/dL 6 - 19 mg/dL High June 06, 2024 Bicarbonate 22 mEq/L 22 - 29 mEq/L - May 222023 Sodium 143 mEq/L 136 - 145 mEq/L - June 06, 2024 BUN/Creat Ratio 8.2 10.0 - 20.0 Low June 06, 2024 Chloride 105 mEq/L 96 - 108 mEq/L - May 222023 Potassium 4.4 mEq/L 3.5 - 5.1 mEq/L - June 06, 2024 Creatinine, Serum 4.85 mg/dL 0.60 - 1.30 mg/dL High June 06, 2024 BUN, Post 31 mg/dL 6 - 19 mg/dL High June 12, 2024 URR, Calc 48 % 65 - 80 % Low June 12 BUN 60 mg/dL 6 - 19 mg/dL High June 12, 2024 BUN, Post 25 mg/dL 6 - 19 mg/dL High June 23, 2024 URR, Calc 55 % 65 - 80 % Low June 23 BUN/Creat Ratio 10.9 10.0 - 20.0 - June 23, 2024 Sodium 142 mEq/L 136 - 145 mEq/L - June BUN 56 mg/dL 6 - 19 mg/dL High June 23, 2024 Creatinine, Serum 5.13 mg/dL 0.60 - 1.30 mg/dL High June 23, 2024 Bicarbonate 26 mEq/L 22 - 29 mEq/L - June Potassium 4.8 mEq/L 3.5 - 5.1 mEq/L - June Chloride 101 mEq/L 96 - 108 mEq/L - June HD Adequacy Result Type Result Value Relevant Referen ce Range Interpretation Date Krt/V 0.00 No Reference Ran ge Provided - January 07, 2024 Krt/V 0.00 No Reference Ran ge Provided - February 11, 2024 Krt/V 0.00 No Reference Ran ge Provided - March 10, 2024 eKt/V ([place]) 1.31 No Reference Range Provided - April 07, 2024 spKt/V ([place]augirdas II) 1.55 No Reference Range Provided - April 07, 2024 Krt/V 0.00 No Reference Ran ge Provided - April 07, 2024 wstdKt/V without residual 2.4 No Reference Range Provided - April 07, 2024 wstdKt/V 2.4 No Reference Ran ge Provided - April 07, 2024 spKt/V Gotch 1.55 No Reference Ran ge Provided - April 07, 2024 wstdKt/V, residual 0.0 No Reference Range Provided - April 07, 2024 wstdKt/V 0.9 No Reference Ran ge Provided - April 26, 2024 wstdKt/V without residual 0.9 No Reference Range Provided - April 26, 2024 wstdKt/V, residual 0.0 No Reference Range Provided - April 26, 2024 eKt/V ([place]) 1.58 No Reference Range Provided - April 26, 2024 spKt/V (Daugirdas II) 1.86 No Reference Range Provided - April 26, 2024 eKt/V ([place]) 1.42 No Reference Range Provided - May 25, 2024 spKt/V Gotch 1.68 No Reference Ran ge Provided - May 25, 2024 Krt/V 0.00 No Reference Ran ge Provided - May 25, 2024 wstdKt/V 1.7 No Reference Ran ge Provided - May 25, 2024 spKt/V ([place]irdas II) 1.69 No Reference Range Provided - May 25, 2024 wstdKt/V without residual 1.7 No Reference Range Provided - May 25, 2024 wstdKt/V, residual 0.0 No Reference Range Provided - May 25, 2024 wstdKt/V 2.1 No Reference Ran ge Provided - June 12, 2024 spKt/V [place] II (HHD) 0.71 No Reference Range Provided Normal June 12, 2024 wstdKt/V without residual 2.1 No Reference Range Provided - June 12, 2024 wstdKt/V, residual 0.0 No Reference Range Provided - June 12, 2024 Simple Kt/V (Home HD Only) 0.65 No Reference Range Provided Normal June 12, 2024 spKt/V [place] II (HHD) 0.89 No Reference Range Provided Normal June 23, 2024 wstdKt/V 2.4 No Reference Ran ge Provided - June 23, 2024 wstdKt/V, residual 0.0 No Reference Range Provided - June 23, 2024 wstdKt/V without residual 2.4 No Reference Range Provided - June 23, 2024 Simple Kt/V (Home HD Only) 0.80 No Reference Range Provided Normal June 23, 2024 Bone/Mineral Result Type Result Value Relevant Referen ce Range Interpretation Date Magnesium 1.7 mg/dL 1.6 - 2.6 mg/dL - October 28 024 Vitamin D 25 Hydroxy 7.8 ng/mL 30.0 - 100.0 ng/mL Low October 29, 2023 PTH-Intact, Plasma 314 pg/mL 16 - 80 pg/mL High Jan Magnesium 1.6 mg/dL 1.6 - 2.6 mg/dL - January Ca x P Product 44 0 - - March Phosphorus 4.7 mg/dL 2.6 - 4.5 mg/dL High March 222023 Calcium, Total 9.4 mg/dL 8.4 - 10.2 mg/dL - 2023 Corrected Ca x P Product 45 0 - - April 07, 2024 Calcium, Total 9.3 mg/dL 8.4 - 10.2 mg/dL - 2023 PTH-Intact, Plasma 250 pg/mL 16 - 80 pg/mL High Apr Phosphorus 4.3 mg/dL 2.6 - 4.5 mg/dL - May 12, 2024 Ca x P Product 40 0 - - April 232023 Alkaline Phosphatase 112 U/L 35 - 104 U/L High 2023 Magnesium 1.9 mg/dL 1.6 - 2.6 mg/dL - May 12, 2024 Corrected Ca x P Product 40 0 - - May 12 PTH-Intact, Plasma 148 pg/mL 16 - 80 pg/mL High May Corrected Ca x P Product 47 0 - - June 06 4 Magnesium 1.8 mg/dL 1.6 - 2.6 mg/dL - June 06, 2024 Alkaline Phosphatase 109 U/L 35 - 104 U/L High 2023 Calcium, Total 8.8 mg/dL 8.4 - 10.2 mg/dL - 2023 Ca x P Product 45 0 - - May 222023 Phosphorus 5.1 mg/dL 2.6 - 4.5 mg/dL High June 06, 2024 Corrected Ca x P Product 38 0 - - June 23, 2024 Ca x P Product 37 0 - - June PTH-Intact, Plasma 182 pg/mL 16 - 80 pg/mL High Jun Calcium, Total 9.2 mg/dL 8.4 - 10.2 mg/dL - 2024 Phosphorus 4.0 mg/dL 2.6 - 4.5 mg/dL - June Liver/Nutrition Result Type Result Value Relevant Referen ce Range Interpretation Date eNPCR 1.02 No Reference Ran ge Provided - April 07, 2024 Total Protein 7.5 g/dL 6.0 - 8.5 g/dL - April 07, 2024 Albumin (BCG) 3.9 g/dL 3.5 - 5.2 g/dL - April 07, 2024 Glucose 99 mg/dL 70 - 100 mg/dL - March A/G Ratio 1.1 1.0 - 2.0 - April 07 Globulin (Calc) 3.6 g/dL 2.0 - 4.0 g/dL - 2023 Glucose 150 mg/dL 70 - 100 mg/dL High April 232023 Globulin (Calc) 3.1 g/dL 2.0 - 4.0 g/dL - 2023 A/G Ratio 1.3 1.0 - 2.0 - May 12 024 Total Protein 7.0 g/dL 6.0 - 8.5 g/dL - 2023 Albumin (BCG) 3.9 g/dL 3.5 - 5.2 g/dL - 2023 eNPCR 0.85 No Reference Ran ge Provided - May 25, 2024 Total Protein 6.7 g/dL 6.0 - 8.5 g/dL - 2023 Albumin (BCG) 3.5 g/dL 3.5 - 5.2 g/dL - 2023 Globulin (Calc) 3.2 g/dL 2.0 - 4.0 g/dL - 2023 A/G Ratio 1.1 1.0 - 2.0 - June 06 024 Glucose 174 mg/dL 70 - 100 mg/dL High May 222023 Glucose 172 mg/dL 70 - 100 mg/dL High June Globulin (Calc) 3.6 g/dL 2.0 - 4.0 g/dL - 2024 A/G Ratio 1.0 1.0 - 2.0 - June 23 Total Protein 7.2 g/dL 6.0 - 8.5 g/dL - June 23, 2024 Albumin (BCG) 3.6 g/dL 3.5 - 5.2 g/dL - June 23, 2024 Immunochemistry Result Type Result Value Relevant Referen ce Range Interpretation Date Hep B Surface Ag (HBsAg) Confirmed negative No Reference Range Provided Normal October 15, 2023 HCV s/co ratio 0.06 0.00 - 0.79 - October 28, 024 HCV s/co ratio 0.10 0.00 - 0.79 - June 06, 2024 Trace Elements Result Type Result Value Relevant Reference Range Interpre tation Date Aluminum < 5 mcg/L 0 - 10 mcg/L - October 29, 2023 Aluminum 8 mcg/L 0 - 10 mcg/L - February 10, Aluminum 7 mcg/L 0 - 10 mcg/L - June 06, 2024 Infectious Diseases Result Type Result Value Relevant Referen ce Range Interpretation Date Hep B core Ab Total (anti-HBc) Negative No Reference Range Provided - October 29, 2023 Hep B Surface Ab (anti-HBs) > 1000 mIU/mL No Reference Range Provided - June 06, 2024 Hep B Surface Ag (HBsAg) Negative No Reference Range Provided - June 06, 2024 HCV Ab (anti-HCV) Nonreactive No Reference R arthur Provided - June 06, 2024 IMMUNIZATIONS Vaccine Date Dose Route Status Flu Vaccine - [place] Trivalent April 05, 2024 0.5 mL Intramuscular Completed PREVNAR April 05, 2024 0.5 mL Intramuscular Compl eted HEPLISAV-B, Series 4 of March 10, 2024 20.0 mcg In tramuscular Completed HEPLISAV-B, Series 3 of January 07, 2024 20.0 mcg Intramu scular Completed HEPLISAV-B, Series 2 of December 10, 2023 20.0 mcg Intramu scular Completed HEPLISAV-B, Series 1 of November 05, 2023 20.0 mcg Intramus cular Completed TRANSPLANT WAITLIST STATUS No Information on Transplant Waitlist Status ADVANCE DIRECTIVES Directive Description Ordered By Effective Date Resuscitation status Full Code Markie Ryan October 29, 2023 DIALYSIS TREATMENTS NxStage-HHD Date Pre-Treatment Vitals Post-Treatment Vitals Durat ion(hr) Exchanges BFR(mL/min) Cartridge Type Dialysate Dialysis Access Meds-entered by patient Malathi 2023 Weight 61.5 kg Weight 61.1 kg 2:59 1 of 10 400 CAR-172-C 2K 45 Lactate Blood Pressure-sitting 154/69 mmHg Blood Pressure-sitting 17 0/81 mmHg 2 of 10 400 Blood Pressure-standing 154/71 mmHg Blood Pressure-standing 135/69 mmHg 3 of 10 400 Heart Rate 78 beats per minute Heart Rate 85 beats per minute 4 of 10 400 Temperature 96.7 deg. F Temperature 97.8 deg. F 5 of 10 40 0 - - - - 6 of 10 400 - - - - 7 of 10 400 - - - - 8 of 10 400 - - - - 9 of 10 - - - - - 10 - June 23, 2024 Weight 61.3 kg Weight 60.4 kg 2:59 1 of 10 400 CAR-172-C 2K 45 Lactate Hemodialysis-CV Catheter-Tunneled, Chest, Right Jugular Access Placed on October 16, 2023 Heparin 3000 Access Heparin 2000 Via Access Iron 100 Via Cartridge Heparin 2100 Via Access Blood Pressure-sitting 126/68 mmHg Blood Pressure-sitting 15 2/68 mmHg 2 of 10 400 Blood Pressure-standing 130/65 mmHg Blood Pressure-standing 122/60 mmHg 3 of 10 400 Heart Rate 81 beats per minute Heart Rate 84 beats per minute 4 of 10 400 Temperature 98 deg. F Temperature 97.8 deg. F 5 of 10 400 - - - - 6 of 10 400 - - - - 7 of 10 400 - - - - 8 of 10 400 - - - - 9 of 10 400 - - - - 10 of - June 24, 2024 Weight 60.2 kg Weight 60.9 kg 2:59 1 of 10 400 CAR-172-C 2K 45 Lactate Hemodialysis-CV Catheter-Tunneled, Chest, Right Jugular Access Placed on October 16, 2023 Heparin 3000 Access Heparin 1900 Via Access Heparin 2100 Via Access Heparin 3000 Via Access Blood Pressure-sitting 104/55 mmHg Blood Pressure-sitting 12 7/61 mmHg 2 of 10 400 Blood Pressure-standing 101/62 mmHg Blood Pressure-standing 104/60 mmHg 3 of 10 400 Heart Rate 71 beats per minute Heart Rate 87 beats per minute 4 of 10 400 Temperature 98 deg. F Temperature 97.7 deg. F 5 of 10 400 - - - - 6 of 10 400 - - - - 7 400 - - - - 8 400 - - - - 9 400 - - - - -
--- OUTSIDE RECORDS SUMMARY | 2024-07-04 03:55 | XMS_ITS ---
Author Name Lupe Velasquez Address [address] [place], [place] [address] Phone [phone] Organization [facility], NA DOCUMENT DISCLAIMER Multiple document versions may exist, please be sure you review the latest version. The information in the [facility] Progress Note Document represents a providers documented clinical note containing certain health and medical information. It may not contain the complete medical history for the patient and should be independently verified. The represented time in the document is Eastern Time PROVIDER ROUNDING NOTE BASIC Patient:?Barbara?L?Chakraborty,?1950,?73y,?F Dialysis?Location:?[place]?-?[place] Attending?Paint Roller Covermaker:?Markie?Shelby Service?Date:?11/14/2023 Service?Provider:?Lupe?Eva,?STRATEGIC BUSINESS DEVELOPMENT I?met?face?to?face?with?the?patient?today. OVERVIEW The?patient?presented?with?ESRD?on?dialysis Primary?cause?of?renal?failure:?Hypertensive?chronic?kidney? disease?with?stage?1?through?stage?4?chronic?kidney?dis ease,?or?unspecified?chronic?kidney?disease Comments:?new?hd?start,?dm/htn,?underlying?schizoaffective?disord er.?will?need?to?see?how?she?tolerates?HD?from?MS standpoint,?ok?at?present seen?in?the?office?previously?but?had?been?hospitalized&#160 ;multiple?times?at?multiple?locations?since Seen?on?dialysis?sleeping?soundly? Medications?and?labs?reviewed. LAST?HOSPITALIZATION Discharge?Diagnosis:?R41.82?Altered?mental?status,?unspecified Admission?Date?10/29/23 Discharge?Date?11/03/23 DIALYSIS?PRESCRIPTION ??IHD?3x?Week?Start?date:?11/17/23 ??Dialyzer:?180NRe?Optiflux ??BFR:?350 ??DFR:?Autoflow?2 ??Potassium:?2.0 ??Sodium:?137 ??EDW:?60 ??Duration:?3:30 ??Calcium:?2.5 ??Bicarb:?35 ??Rx?updated?on:?11/14/2023 TREATMENT?ASSESSMENT BP?Sit?Pre ??11/14/2023:?199/88 ??11/12/2023:?197/78 ??11/09/2023:?142/64 BP?Stand?Post ??11/14/2023:?156/55 ??11/09/2023:?158/69 BP?Sit?Post ??11/14/2023:?150/69 ??11/12/2023:?145/65 ??11/09/2023:?180/65 Tx?Duration ??11/14/2023:?3:09 ??11/12/2023:?3:32 ??11/09/2023:?3:30 Missed?Treatments 0?-?last?30?days 0?-?last?60?days FLUID?ASSESSMENT EDW?(kg) ??11/14/2023:?58.0 ??11/12/2023:?58.0 ??11/09/2023:?62.5 Weight?Pre?(kg) ??11/14/2023:?61.2 ??11/12/2023:?60.5 ??11/09/2023:?59.2 Weight?Post?(kg) ??11/14/2023:?60.2 ??11/12/2023:?59.9 ??11/09/2023:?58.7 PWV?(kg) ??11/14/2023:?2.2 ??11/12/2023:?1.9 ??11/09/2023:?-3.8 UF?Rate?(mL/kg/hr) ??11/14/2023:?5.3 ??11/12/2023:?2.8 ??11/09/2023:?2.4 ADEQUACY?ASSESSMENT spKt/V,?URR ??10/29/2023:?1.66,?79.0 ACCESS?ASSESSMENT ??Access?Type:?CVCatheter ??Access?SubType:?Tunneled ??Access?Status:?Active?(In?Use)?-?10/27/2023 ??Access?Location:?Chest ??Placed:?10/16/2023 ANEMIA?ASSESSMENT HGB,?TSAT ??11/12/2023:?9.1,?- ??11/05/2023:?9.4,?- ??10/29/2023:?8.3,?29.0 ?? Ferritin ??10/29/2023:?203.0 Iron?Sucrose?(Venofer)?(mg) ??11/14/2023:?100 ??11/07/2023:?100 BMM?ASSESSMENT PTH,?Intact ??10/29/2023:?297.0 ?? Calcium,?Phosphorus ??10/29/2023:?9.2,?4.2 Vitamin?D?(Calcitriol)?Oral?(mcg) ??11/14/2023:?0.25 ??11/12/2023:?0.25 ??11/09/2023:?0.25 NUTRITION?ASSESSMENT Potassium,?Albumin ??10/29/2023:?5.8,?3.3 DIAGNOSIS Chief?Complaint:?N18.6?End?stage?renal?disease Patient?data?updated?11/15/2023?at?7:03?AM Signed?By:?Eva,?Lupe,?STRATEGIC BUSINESS DEVELOPMENT??on?11/15/2023?7:03:57 AM END OF DOCUMENT
--- OUTSIDE RECORDS SUMMARY | 2024-07-04 03:55 | XMS_ITS ---
Author Name Lupe Velasquez Address [address] [place], [place] [address] Phone [phone] Organization [facility], NA DOCUMENT DISCLAIMER Multiple document versions may exist, please be sure you review the latest version. The information in the [facility] Progress Note Document represents a providers documented clinical note containing certain health and medical information. It may not contain the complete medical history for the patient and should be independently verified. The represented time in the document is Eastern Time PROVIDER ROUNDING NOTE BASIC Patient:?Barbara?L?Chakraborty,?1950,?73y,?F Dialysis?Location:?[facility]?-?[place] Attending?Education Faculty Member:?Markie?Shelby Service?Date:?01/28/2024 Service?Provider:?Lupe?Eva,?RN CASE MANAGER I?met?face?to?face?with?the?patient?today. OVERVIEW The?patient?presented?with?ESRD?on?dialysis Primary?cause?of?renal?failure:?Hypertensive?chronic?kidney? disease?with?stage?1?through?stage?4?chronic?kidney?dis ease,?or?unspecified?chronic?kidney?disease Comments:?new?hd?start,?dm/htn,?underlying?schizoaffective?disord er.?doing?ok?with?HD?thus?far bp?elevated?initially?and?then?improves.?continue?to?slowly& #160;decrease?dw?and?monitor may?not?be?a?candidate?for?alternate?access?with?tremors -seen?on?dialysis;?tolerating?well Medications?and?labs?reviewed. LAST?HOSPITALIZATION Discharge?Diagnosis:?R55?Syncope?and?collapse Admission?Date?12/19/23 Discharge?Date?12/26/23 DIALYSIS?PRESCRIPTION ??IHD?3x?Week?Start?date:?01/28/24 ??Dialyzer:?180NRe?Optiflux ??BFR:?350 ??DFR:?Autoflow?2 ??Potassium:?2.0 ??Sodium:?137 ??EDW:?60 ??Duration:?3:30 ??Calcium:?2.5 ??Bicarb:?35 ??Rx?updated?on:?01/28/2024 TREATMENT?ASSESSMENT BP?Sit?Pre ??01/26/2024:?160/80 ??01/23/2024:?150/76 ??01/21/2024:?187/80 BP?Stand?Post ??01/26/2024:?149/65 ??01/21/2024:?124/60 BP?Sit?Post ??01/26/2024:?137/82 ??01/23/2024:?144/63 ??01/21/2024:?150/78 Tx?Duration ??01/26/2024:?3:33 ??01/23/2024:?3:40 ??01/21/2024:?3:35 Missed?Treatments 2?-?last?30?days 2?-?last?60?days /16?-?recent FLUID?ASSESSMENT EDW?(kg) ??01/26/2024:?58.2 ??01/23/2024:?58.2 ??01/21/2024:?58.2 Weight?Pre?(kg) ??01/26/2024:?63.0 ??01/23/2024:?62.1 ??01/21/2024:?61.6 Weight?Post?(kg) ??01/26/2024:?60.5 ??01/23/2024:?60.2 ??01/21/2024:?60.4 PWV?(kg) ??01/26/2024:?2.3 ??01/23/2024:?2.0 ??01/21/2024:?2.2 UF?Rate?(mL/kg/hr) ??01/26/2024:?11.6 ??01/23/2024:?8.6 ??01/21/2024:?5.5 ADEQUACY?ASSESSMENT spKt/V,?URR ??01/07/2024:?1.53,?76.0 ??12/15/2023:?1.58,?76.0 ??12/10/2023:?1.33,?70.0 ACCESS?ASSESSMENT ??Access?Type:?CVCatheter ??Access?SubType:?Tunneled ??Access?Status:?Active?(In?Use)?-?10/27/2023 ??Access?Location:?Chest ??Placed:?10/16/2023 ANEMIA?ASSESSMENT HGB,?TSAT ??01/21/2024:?7.8,?- ??01/14/2024:?7.9,?- ??01/07/2024:?9.2,?60.0 ?? Ferritin ??10/29/2023:?203.0 Mircera,?IVP?(mcg) ??01/19/2024:?100 Iron?Sucrose?(Venofer)?(mg) ??01/23/2024:?100 ??01/16/2024:?100 ??01/09/2024:?100 BMM?ASSESSMENT PTH,?Intact ??12/10/2023:?351.0 ??10/29/2023:?297.0 ?? Calcium,?Phosphorus ??01/07/2024:?8.8,?3.7 ??12/10/2023:?8.9,?4.6 ??10/29/2023:?9.2,?4.2 Vitamin?D?(Calcitriol)?Oral?(mcg) ??01/26/2024:?0.25 ??01/23/2024:?0.25 ??01/21/2024:?0.25 NUTRITION?ASSESSMENT Potassium,?Albumin ??01/07/2024:?4.3,?3.7 ??12/10/2023:?4.9,?3.5 ??10/29/2023:?5.8,?3.3 ?? eNPCR ??01/07/2024:?0.64 ??12/15/2023:?0.78 ??12/10/2023:?0.75 DIAGNOSIS Chief?Complaint:?N18.6?End?stage?renal?disease Patient?data?updated?01/28/2024?at?3:47?PM Signed?By:?Eva,?Lupe,?RN CASE MANAGER??on?01/31/2024?8:50:27 AM END OF DOCUMENT
--- OUTSIDE RECORDS SUMMARY | 2024-07-04 03:56 | XMS_ITS | Encounter Summary ---
Author Organization [facility] Address [facility] [place] [address] [place] [address] Care Team Providers Care Contract Engineer Name Role Phone Cherelle Corcoran MD Primary Care Provider [phone]- [phone] Reason for Referral * Imaging (Routine) - Closed Specialty Diagnoses / Procedures Referred By Maryse lama Referred To Contact RADIOLOGY Diagnoses Osteomyelitis of right foot ([facility]/HCC HHS/HCC) Procedures MRI FOOT RT WO CON MRI FOOT RT WWO CON Guy Walsh MD [address] [facility] [address] [place] [id number] Phone: tel: fax: [place] [address] Phone: tel: Referral ID Status Reason Start Date Expiration Date Visits Re quested Visits Authorized [id number] Closed 09/27/2019 10/26/2020 1 1 Reason for Visit * Imaging (Routine) - Closed Specialty Diagnoses / Procedures Referred By Maryse lama Referred To Contact RADIOLOGY Diagnoses Osteomyelitis of right foot ([facility]/HCC HHS/HCC) Procedures MRI FOOT RT WO CON MRI FOOT RT WWO CON Guy Walsh MD [address] [place] [address] Phone: tel: fax: [facility] [place] [address] Phone: tel: Referral ID Status Reason Start Date Expiration Date Visits Re quested Visits Authorized [id number] Closed 09/27/2019 10/26/2020 1 1 Encounter Details Date Type Department Care Team (Latest Contact Info) Description 10/03/2019 4:45 PM CDT - 10/03/2019 11:59 PM CDT Hospital Encounter [facility] [place] [address] [place] [address] Guy Walsh MD [address] [facility] [address] [place] [id number] Discharge Disposition: Home or Self Care (Routine Discharge) Social History Tobacco Use Types Packs/Day Years Used Date Smoking Tobacco: Never Assessed Comments Unknown Sex and Gender Information Value Date Recorded Sex Assigned at Not on file Legal Sex Female 1:41 PM CDT Gender Identity Not on file Sexual Orientation Not on file COVID-19 Exposure Response Date Recorded In the last month, have you been in contact with someone who was confirmed or suspected to have Coronavirus / COVID-19? No / Unsure 10/03/2019 4:43 PM CDT documented as of this encounter Plan of Treatment Not on file documented as of this encounter Procedures Procedure Name Priority Date/Time Associated Diagnosis Comments MRI FOOT RT WO CON Routine 10/03/2019 5: 27 PM CDT Osteomyelitis of right foot ([facility]) documented in this encounter Results * MRI FOOT RT WO CON (10/03/2019 5:27 PM CDT) Anatomical Region Laterality Modality Foot Magnetic Resonan ce 10/03/2019 6:35 PM CDT Impressions 10/03/2019 6:40 PM CDT IMPRESSION: 1. ??Signal abnormality throughout the fourth digit suggesting acute osteomyelitis. ??Recommend clinical correlation for signs/symptoms in the fourth toe 2. ??Minimal signal abnormality in the distal first phalanx, also concerning for early changes of acute osteomyelitis. 3. ??First MTP joint arthritis.. Interpreted By: Endy Flores MD, 10/03/2019 6:35 PM Narrative 10/03/2019 6:40 PM CDT EXAMINATION: MRI FOOT RT WO CON HISTORY: Nonhealing ulcer, right great toe DATE: 10/03/2019 4:54 PM COMPARISON: None TECHNIQUE: Multisequence multiplanar unenhanced imaging of the forefoot. FINDINGS: There is very mild T2/STIR hyperintensity throughout the distal first phalanx, without corresponding T1 signal abnormality. ??Findings are nonspecific but can be seen in setting of very early changes associated with acute osteomyelitis. ??Additionally, there is signal abnormality throughout the proximal and middle fourth phalanges, with both T2 hyperintensity and T1 hypointensity, which is also suggestive of acute osteomyelitis. ??Question mild signal abnormality in the distal fourth phalanx as well. ??No other areas suspicious for osteomyelitis are identified No fracture identified. ??No dislocation. ??There is moderate first MTP joint arthritis, likely osteoarthritis with significant focal subchondral cystic change in the first metatarsal head. ??No tenosynovitis or joint effusion. ??No fluid collection. Procedure Note Endy Flores MD - 10/03/2019 EXAMINATION: MRI FOOT RT WO CON HISTORY: Nonhealing ulcer, right great toe DATE: 10/03/2019 4:54 PM COMPARISON: None TECHNIQUE: Multisequence multiplanar unenhanced imaging of the forefoot. FINDINGS: There is very mild T2/STIR hyperintensity throughout the distalfirst phalanx, without corresponding T1 signal abnormality. Findings arenonspecific but can be seen in setting of very early changes associatedwith acute osteomyelitis. Additionally, there is signal abnormalitythroughout the proximal and middle fourth phalanges, with both [id number] and T1 hypointensity, which is also suggestive of acuteosteomyelitis. Question mild signal abnormality in the distal fourthphalanx as well. No other areas suspicious for osteomyelitis areidentified No fracture identified. No dislocation. There is moderate first MTPjoint arthritis, likely osteoarthritis with significant focal subchondralcystic change in the first metatarsal head. No tenosynovitis or jointeffusion. No fluid collection. IMPRESSION: 1. Signal abnormality throughout the fourth digit suggesting acuteosteomyelitis. Recommend clinical correlation for signs/symptoms in thefourth toe 2. Minimal signal abnormality in the distal first phalanx, alsoconcerning for early changes of acute osteomyelitis. 3. First MTP joint arthritis.. Interpreted By: Endy Flores MD, 10/03/2019 6:35 PM Guy Walsh MD MRI Final Result documented in this encounter Visit Diagnoses Diagnosis Osteomyelitis of right foot (CMS/HCC HHS/HCC) Unspecified osteomyelitis, ankle and foot documented in this encounter Care Teams Contract Engineer Relationship Specialty Start Date End Date Cherelle Corcoran MD [address] [place] [id number] PCP - General FAMILY PRACTICE 09/27/19 documented as of this encounter
--- OUTSIDE RECORDS SUMMARY | 2024-07-04 03:56 | XMS_ITS | Encounter Summary ---
Author Organization [facility] Address [address] [place] [address]. [place] [address] [place] [address] Care Team Providers Care Burn Crew Member Name Role Phone Cherelle Corcoran MD Primary Care Provider +1- [phone] Encounter Details Date Type Department Care Team (Latest Contact Info) Description 01/31/2024 Scan HEALTH INFO SRVCS Scanned, Doc Med Group Social History Tobacco Use Types Packs/Day Years Used Date Smoking Tobacco: Never Assessed Comments Unknown Sex and Gender Information Value Date Recorded Sex Assigned at Not on file Legal Sex Female 1:41 PM CDT Gender Identity Not on file Sexual Orientation Not on file documented as of this encounter Plan of Treatment Not on file documented as of this encounter Visit Diagnoses Not on filedocumented in this encounter Care Teams Burn Crew Member Relationship Specialty Start Date End Date Cherelle Corcoran MD [address] [place] [phone] PCP - General FAMILY PRACTICE 09/27/19 documented as of this encounter
--- OUTSIDE RECORDS SUMMARY | 2024-07-04 03:56 | XMS_ITS | Encounter Summary ---
Author Organization [facility] Address [address] [place] [address]. [place] [address] [place] [address] Care Team Providers Care Hi Lo Driver Name Role Phone Cherelle Corcoran MD Primary Care Provider +1- [phone] Encounter Details Date Type Department Care Team (Latest Contact Info) Description 01/30/2024 Scan HEALTH INFO SRVCS Scanned, Doc Med [...] on filedocumented in this encounter Care Teams Hi Lo Driver Relationship Specialty Start Date End Date Cherelle Corcoran MD [address] [place] [phone] PCP - General FAMILY PRACTICE 09/27/19 documented as of this encounter
--- OUTSIDE RECORDS SUMMARY | 2024-07-04 03:56 | XMS_ITS | Encounter Summary ---
Author Organization [facility] Address [address] [place] [address]. [place] [address] [place] [address] Care Team Providers Care Nurse Emergency Name Role Phone Cherelle Corcoran MD Primary Care Provider +1- [phone] Encounter Details Date Type Department Care Team (Latest Contact Info) Description 10/03/2019 Travel Social History Tobacco Use Types Packs/Day Years [...] on filedocumented in this encounter Care Teams Nurse Emergency Relationship Specialty Start Date End Date Cherelle Corcoran MD [address] [place] [phone] PCP - General FAMILY PRACTICE 09/27/19 documented as of this encounter
--- OUTSIDE RECORDS SUMMARY | 2024-07-04 03:56 | XMS_ITS ---
Author Organization [facility] ([facility]) Address [address] [place] [address] Care Team Providers Care Combatant Swimmer Name Role Phone Unavailable Unavailable Unavailable Allergies, Adverse Reactions, Alerts This patient has no known allergies or adverse reactions. Problems This patient has no known problems.
--- OUTSIDE RECORDS SUMMARY | 2024-07-04 03:56 | XMS_ITS | Encounter Summary ---
Author Organization [facility] Address [address] [place] [address]. [place] [address] [place] [address] Care Team Providers Care Solo Musician Name Role Phone Cherelle Corcoran MD Primary Care Provider +1- [phone] Encounter Details Date Type Department Care Team (Latest Contact Info) Description 04/23/2024 Scan HEALTH INFO SRVCS Scanned, Doc Med [...] on filedocumented in this encounter Care Teams Solo Musician Relationship Specialty Start Date End Date Cherelle Corcoran MD [address] [place] [phone] PCP - General FAMILY PRACTICE 09/27/19 documented as of this encounter
--- OUTSIDE RECORDS SUMMARY | 2024-07-04 03:56 | XMS_ITS | Clinical Summary ---
Author Organization [facility] Address [address] [place] [address]. [place] [address] [place] [address] Care Team Providers Care Behavioral Services Tech Name Role Phone Cherelle Corcoran MD Primary Care Provider +1- [phone] Encounters Date Type Department Care Team Description 04/23/2024 Scan [facility] HEALTH INFO SRVCS Scanned, Doc Med Group from Last 3 Months Social History Tobacco Use Types Packs/Day Years Used Date Smoking Tobacco: Never Assessed Comments Unknown Sex and Gender Information Value Date Recorded Sex Assigned at Not on file Legal Sex Female 1:41 PM CDT Gender Identity Not on file Sexual Orientation Not on file Plan of Treatment Health Maintenance Due Date Last Done Comments Colorectal Cancer Screening Colonoscopy (10 Years) 1950 Lipid Panel 1950 Diabetes: Retinopathy Eye Exam 1968 DTaP, Tdap and Td Vaccines (1 - Tdap) 1969 Zoster Vaccines (1 of 2) 2000 RSV Immunization or 60+ Years (1 - Risk 60-74 years 1-dose series) 2010 Annual Medicare Wellness Visit 10/29/2015 COVID-19 Vaccine ( season) 2024 06/11/2021, 10/13/2020, 09/22/2020 Influenza Adult (#1) 2024 04/06/2019, 04/17/20 17 Hemoglobin A1C 04/08/2024 10/08/2023, 11/20, 08/02/2022, Additional history exists Mammogram Screening 01/21/2026 01/22/2024, 09/25/2022, 01/08/2021, Additional history exists Pneumococcal Vaccine: 65+ Years Completed 01/20/2019, 03/31/2017 Dexa Scan (General) Completed 01/22/2024, 01/22/2024, 01/08/2021 Hepatitis C Completed 01/30/2024, 0706/2023, 12/21/2023 Meningococcal Vaccine Aged Out No khang frances eligible based on patient's age to complete this topic RSV Immunizations Under 20 Months Aged Out No longer eligible based on patient's age to complete this topic Insurance MEDICARE MEDICAID Care Teams Behavioral Services Tech Relationship Specialty Start Date End Date Cherelle Corcoran MD [address] [place] [id number] PCP - General FAMILY PRACTICE 09/27/19
--- OUTSIDE RECORDS SUMMARY | 2024-07-04 03:57 | XMS_ITS | Encounter Summary ---
Author Organization [facility] Address [address] [place] [address] Phone Care Team Providers Care Moose Hunter Name Role Phone Unavailable Primary Care Provider Unavailabl e Reason for Visit * Reason Onset Date Comments Medication Refill 08/08/2019 Encounter Details Date Type Department Care Team (Late st Contact Info) Description 08/08/[facility] [address] [place] [address] Choco Morris PAC Medication Refill Social History Tobacco Use Types Packs/Day Years Used Date Smoking Tobacco: Never Smokeless Tobacco: Never Alcohol Use Standard Drinks/Week Comments Yes 0 (1 standard drink = 0.6 oz pur e alcohol) very rarely PHQ-2 Answer Date Recorded PHQ-2 Score 18 02/17/2019 Sexually Active Control Partners Comments Not Currently Comments No Sex and Gender Information Value Date Recorded Sex Assigned at Not on file Legal Sex Female 11:30 PM CDT Gender Identity Not on file Sexual Orientation Not on file Occupation Industry Job Start Date Job End Date disabled Not on file Not on file Not on file documented as of this encounter Miscellaneous Notes * Telephone Encounter - Choco Morris PAC - 08/08/2019 12:57 PM MARSHMALLOW RUNNER Pt dismissed from practice. Refill denied. HMALLOW RUNNER * Telephone Encounter - Anali Tao RN - 08/08/2019 11:59 AM MARSHMALLOW RUNNER Requested Prescriptions Pending Prescriptions Disp Refills liraglutide (VICTOZA) 18 MG/3ML Solution Pen-injector 3 mL 0 Si.6 mg by Subcutaneous route daily. Endocrinology: Diabetes - Incretin Mimetics Passed - 08/08/2019 11:57 AM Passed - Valid encounter within last 12 months Past Office Visits Recent Outpatient Visits 6 months ago Uncontrolled type 2 diabetes mellitus with diabetic polyneuropathy, with long-term current use of insulin (HCC) [facility] - Choco Padgett PAC 1 year ago Type 2 diabetes mellitus without complication, with long-term current use of insulin (HCC) [facility] Chepe Tello MD 2 years ago Neuropathy of legs [facility] Chepe Tello MD 2 years ago Type 2 diabetes mellitus without complication, with long-term current use of insulin (<HCC>) [facility] Chepe Tello MD 3 years ago Type 2 diabetes mellitus without complication, with long-term current use of insulin (<HCC>) [facility] Chepe Tello MD Upcoming Appointments Passed - Last BP in normal range HMALLOW RUNNER documented in this encounter Plan of Treatment Not on file documented as of this encounter Visit Diagnoses Not on filedocumented in this encounter Additional Health Concerns Assessment Noted Time PHQ-9 Depression Total Score: 18 019 8:00 AM CDT documented as of this encounter
--- OUTSIDE RECORDS SUMMARY | 2024-07-04 03:57 | XMS_ITS | Clinical Summary ---
Author Organization [facility] Address [address], [address] [address] Phone Care Team Providers Care Metal Wire Coating Operator Name Role Phone Cherelle Corcoran MD Primary Care Pro vider Sim López MD Unavailable Allergies No known active allergies Medications Cholecalciferol (VITAMIN D3) 3000 UNITS Tablet Take 1,000 Units by mouth daily. Active Multiple Vitamins-Minera ls (CENTRUM ADULTS PO) Take 1,000 mg by mouth daily. Active Multiple Vitamins-Minera ls (HAIR SKIN AND NAILS FORMULA PO) Take 400 mg by mouth daily. Active Insulin Syringe-Needle U-100 (B-D INS SYR ULTRAFINE 1CC/31G) 31G X 5/16 1 ML Misc 3 times a day 300 Syringe 1 8 Active Insulin Pen Needle (PEN NEEDLES) 32G X 5 MM Misc Once a day 100 Each 3 8 Active Misc. Devices MiscIndications :Uncontrolled type 2 diabetes mellitus with diabetic polyneuropathy, with long-term current use of insulin Supply and instructions: Diabetic Shoes 1 Each 8 Active Glucose Blood (ONETOUCH VERIO) Strip Test four times daily. 400 Strip 3 9 Active Blood Glucose Monitoring Suppl (ONETOUCH VERIO) w/Device Kit 1 Kit by Does not apply route 4 times daily. 1 Kit 9 Active ONETOUCH DELICA LANCETS 33G Misc 1 Lancet by Does not apply route 4 times daily. 400 Lancet 3 9 Active insulin glargine (BASAGLAR KWIKPEN) 100 UNIT/ML Solution Pen-injector 24 Units by Subcutaneous route every evening. 15 mL 3 9 Active liraglutide (VICTOZA) 18 MG/3ML Solution Pen-injector 0.6 mg by Subcutaneous route daily. 3 mL 9 Active Insulin Pen Needle (PEN NEEDLES 31GX5/16 ) 31G X 8 MM Misc As Instructed. DX: E11.9 100 Each 3 9 Active ibuprofen (MOTRIN) 600 MG Tablet Take 1 Tab by mouth every 8 hours as needed for Moderate or more severe pain. 40 Tab 9 Active gabapentin (NEURONTIN) 100 MG Capsule Take 1 Cap by mouth 3 times daily. 90 Cap 9 Active Active Problems Problem Noted Date Diagnosed Date Diabetic peripheral neuropat hy associated with type 2 diabetes mellitus 01/20/2019 Proctitis 03/30/2017 GI bleed 03/30/2017 Altered mental status 03/30/2017 Hypertension 03/30/2017 Uncontrolled type 2 diabetes mellitus with diabetic polyneuropathy, with long-term current use of insulin 01/30/2016 Generalized abdominal pain 01/30/2016 Vaginal pain 01/30/2016 Arthritis 01/30/2016 Immunizations Immunization Administration Dates Next Due Influenza Vaccine greater than 3 yrs 04/17/2017 Influenza, Seasonal, Injectable, Undefined 04/17 Influenza, Trivalent, Adjuvanted, PF 04/06/2019 Pneumococcal Vaccine - 13 Valent 03/31/2017 Pneumococcal Vaccine Adult - 23 Valent 9 Family History Medical History Relation Name Comments Heart Disease Father Diabetes Mother Relation Name Status Comments Father (Age 80's) Mother Alive Social History Tobacco Use Types Packs/Day Years Used Date Smoking Tobacco: Never Smokeless Tobacco: Never Tobacco Cessation:Counseling Given: Yes Alcohol Use Standard Drinks/Week Comments Yes 0 [...] file Not on file Not on file Last Filed Vital Signs Vital Sign Reading Time Taken Comments Blood Pressure 116/59 03/11/2019 11:32 AM CDT Pulse 80 03/11/2019 11:32 AM CDT Temperature 36.1 ??C (97 ??F) 03/11/2019 10:19 AM CDT Respiratory Rate 17 03/11/2019 11:32 AM CDT Oxygen Saturation 99% 03/11/2019 11:32 AM CDT Inhaled Oxygen Concentration - - Weight 72.6 kg (160 lb) 03/11/2019 10:19 AM CDT Height 157.5 cm (5' 2 ) 03/11/2019 10:19 AM CDT Body Mass Index 29.26 03/11/2019 10:19 AM CDT Plan of Treatment Health Maintenance Due Date Last Done Comments DEXA Bone Density 1950 Diabetes: Eye Exam 1950 Diabetes: Foot Exam 1950 Hepatitis C Virus (HCV) Screening 1950 TdaP Immunization 1950 Cologuard 2000 Zoster Immunization (1 of 2) 2000 Respiratory Syncytial Virus (RSV) Immunization (Adult) (1 - Risk 60-74 years 1-dose series) 2010 Mammogram 11/07/2017 11/08/2015 Immunochemical Fecal Occult Blood 03/30/2018 03/30/2017 Diabetes: Hemoglobin A1c 07/23/2019 019, 01/20/2019, 10/08/2017, Additional history exists Diabetes: Nephropathy Screening 03/11/2020 03/11/2019, 01/20/2019, 01/20/2019, Additional history exists Influenza Immunization (#1) 02/21/202407/23, 04/01/2022, 03/07/2021, Additional history exists SARS-COV-2 Immunization ( season) 2024 06/11/2021, 10/13/2020, 09/22/2020 Colonoscopy 04/01/2027 04/01/2017 Colorectal Cancer Screening 04/01/2027 04/01/2017 Pneumococcal Immunization (50+ years) Completed 01/20/2019, 03/31/2017 Pneumococcal Immunization Combined Discontinued 01/20/2019, 03/31/2017 Hepatitis B Immunization Aged Out No longer eligible based on patient's age to complete this topic Meningococcal Immunization (ACWY) Aged Out No longer eligible based on patient's age to complete this topic Rotavirus Immunization Aged Out No lo nger eligible based on patient's age to complete this topic Procedures Procedure Name Priority Date/Time Associated Diagnosis Comments CMP (COMPREHENSIVE METABOLIC PANEL) STAT 03/11/2019 10:23 AM CDT POCT GLYCOSYLATED HEMOGLOBIN Routine 01/20/2019 9:44 AM CDT Uncontrolled type 2 diabetes mellitus with diabetic polyneuropathy, with long-term current use of insulin (HCC) Diabetic peripheral neuropathy associated with type 2 diabetes mellitus (HCC) Lipid screening STOOL, OCCULT BLOOD, DIAGNOSTIC, VIA GUAIAC STAT 03/30/2017 2:09 PM CDT CHERYL SCREENING BILATERAL DIGITAL W CAD Routine 11/08/2015 from Last 3 Months or Most Recently Relevant to Health Maintenance Results * (ABNORMAL) CMP (Comprehensive Metabolic Panel) (03/11/2019 10:23 AM CDT) SODIUM 137 136 - 144 mmol/L 03/11/2019 11:10 AM CDT [facility] POTASSIUM 4.8 3.5 - 5.1 mmol/L 03/11/2019 11:10 AM CDT [facility] CHLORIDE 96(L) 100 - 110 mmol/L 03/11/2019 11:10 AM CDT [facility] CO2, VENOUS 28 22 - 32 mmol/L 03/11/2019 11:10 AM CDT [facility] ANION GAP 17.8 8.0 - 20.0 mmol/L 03/11/2019 11:10 AM CDT [facility] GLUCOSE 216(H) 70 - 99 mg/dL 03/11/2019 11:10 AM CDT [facility] BUN 22 8 - 23 mg/dL 03/11/2019 11:10 AM CDT [facility] CREATININE, BLOOD 0.66 0.60 - 1.10 mg/dL 03/11/2019 11:10 AM [facility] BUN/CREATININE RATIO 33(H) 12 - 20 ratio 03/11/2019 11:10 AM [facility] TOTAL PROTEIN 8.4(H) 6.0 - 8.3 g/dL 03/11/2019 11:10 AM [facility] ALBUMIN 4.3 3.5 - 5.2 g/dL 03/11/2019 11:10 AM [facility] Comment: The colormetric methods used for the determination of Albumin may lead to falsely elevated test results in patients suffering from renal failure or insufficiency due to interference with other proteins. A/G RATIO 1.0 1.0 - 2.0 03/11/2019 11:10 AM [facility] CALCIUM 10.4(H) 8.9 - 10.3 mg/dL 03/11/2019 11:10 AM [facility] T BILI 0.3 <=1.2 mg/dL 03/11/2019 11:10 AM [facility] SGOT (AST) 19 <=32 U/L 03/11/2019 11:10 AM [facility] Comment: Hemolysis present: results may be falsely elevated. SGPT (ALT) 14 <=33 U/L 03/11/2019 11:10 AM [facility] ALKALINE PHOSPHATASE 123(H) 35 - 105 U/L 03/11/2019 11:10 AM [facility] GFR, EST. NONAFRICAN >60 >=60 03/11/2019 11:10 AM [facility] GFR, EST. >60 >=60 019 11:10 AM [facility] Comment: Creatinine Clearance is the preferred criteria for selecting drug dose adjustments in renally impaired patients. ??The GFR is provided as additional pertinent clinical information. GFR is reported in mL/min/1.73 sq m. Blood specimen (specimen) Venous Catheter (IV) / Unknown 03/11/2019 10:23 AM CDT 03/11/2019 10:46 AM CDT us Ronald Haro MD CHEMISTRY ORDERABLES Final Result Performing Organization Address City/[facility]/ZIP Co de Phone Number [facility] [address] [place] [address] * (ABNORMAL) POCT GLYCOSYLATED HEMOGLOBIN (01/20/2019 9:44 AM CDT) HGB-A1C 15(A) 4 - 6 Comment:above 15 01/20/2019 9:44 AM CDT Choco Morris PAC POINT OF CARE TESTING (M ANUAL) Final Result * Stool, Occult Blood, Diagnostic (03/30/2017 2:09 PM CDT) OCCULT BLOOD DIAG, GI BLEED Negative Negative 03/30/2017 2:29 PM CDT [facility] Stool specimen (specimen) STOOL SPECIMEN / Unknown Non-Phlebotomy Collection / Unknown 03/30/2017 2:09 PM CDT 03/30/2017 2:23 PM CDT us Anali Ortiz PAC BODY FLUIDS & STOOLS ORDERAB LES Final Result Performing Organization Address City/[facility]/ZIP Co de Phone Number [facility] [address] [place] [address] * CHERYL SCREENING BILATERAL DIGITAL W CAD (11/08/2015) Anatomical Region Laterality Modality breast Bilateral Other us Historical Provider IMG MAMMO ORDERABLES Blessing l Result from Last 3 Months or Most Recently Relevant to Health Maintenance Insurance MEDICARE C [employer] MEDICARE [place]ID [place] Advance Directives * Full Code (Latest Code Status on File) Date Activated Date Inactivated Comments 04/07/2017 7:30 AM 03/11/2019 10:12 AM * Full Code Date Activated Date Inactivated Comments 03/30/2017 6:32 PM 04/03/2017 5:43 PM CPR-Full Tr eatment: FULL ARREST: Attempt Resuscitation/CPR wit intubation and mechanical ventilation. PRE-ARREST: Use entire range of life support measures to stabilize the patient. Care Teams Metal Wire Coating Operator Relationship Specialty Start Date End Date Cherelle Corcoran MD [address] [place] [id number] PCP - General Family Medicine 02/12/24 Sim López MD [address] [place] [address] [id number] Consulting Physician Oncology 02/12/24
--- OUTSIDE RECORDS SUMMARY | 2024-07-04 03:58 | XMS_ITS | CONTINUITY OF CARE DOCUMENT ---
Author Name flash vidales Address Unknown Organization [facility] Address [address] [place] [address] Phone [phone] Care Team Providers Care Spray Foam Installer Name Role Phone Jared YOUNG, Meghann Unavailable LONDON YOUNG, DUANE Unavailable [phone] LONDON YOUNG, DUANE Unavailable [phone] PROBLEMS Condition Status Date Provider Notes Cardiology examination active Audie Blas Parkinson's disease active Audie Blas anemia active Audie Blas Schizophrenia active Audie Blas Diabetes mellitus, Type II active Audie shenjazzmine ESRD - On Hemodialysis active Audie Blas HTN essential active Audie Blas Hyperlipidemia active Audie Blas Diabetic neuropathy active Audie Blas Depression active Audie Blas Dementia active Audie Blas CHF active Audie Blas arthritis active Audie Blas ENCOUNTERS Date Type Provider Location Encounter Diag nosis 03/07 - 07/06 In-person encounter Office Visit Megh[facility] 11/29 - 11/30 In-person encounter Office Visit Meghann [facility] Cardiology examinationarthritisCHFDementiaDepressionDiabetic neuropathyHyperlipidemiaHTN essentialESRD - On HemodialysisDiabetes mellitus, Type IISchizophreniaanemiaParkinson's disease VITAL SIGNS Date Observation Value Provider Body Mass Index (Ratio) 25.60 kg/m2 Kyler Coleman MD blood pressure, diastolic 57 mm[Hg] Nataly pierson Vieyra blood pressure, systolic 119 mm[Hg] Christine ramirez Vieyra oxygen saturation, oximetry 98 % Sugar Vieyra pulse rate 56 /min Sugar [place] respiratory rate E&M 12 /min [facility] weight E&M 140 [lb_av] Sugar [place] blood pressure, cuff size regular Anand Wislon height E&M 62 [in_i] Cherelle Wilson Body Mass Index (Ratio) 24.87 kg/m2 Idel la Sommer blood pressure, diastolic 91 mm[Hg] Li nkLogic blood pressure, systolic 192 mm[Hg] Ana kLogic blood pressure, cuff size regular Ja rret blood pressure, diastolic 91 mm[Hg] Ja rret blood pressure, systolic 192 mm[Hg] Jar ret pulse rate 69 /min Nolan height E&M 62 [in_i] Nolan oxygen saturation, oximetry 98 % Nolan weight E&M 136 [lb_av] Nolan respiratory rate E&M 16 /min ALLERGIES No Known Drug Allergies HISTORY OF MEDICATION USE Medication Status Instructions Dates Provider Indications Com ments Coreg 3.125 mg tablet active TAKE 1 TABLET BY MOUTH TWICE DAILY 5 Shiloh Nalluri JARAD Procardia XL 90 mg tablet extended release 24hr active Take 1 tablet by mouth once a day 6 Isidro Hahn MD aspirin 81 mg capsule active Take 1 capsule by mouth once a day Cherelle Wilson benztropine 2 mg tablet active Take 1 tablet by mouth once a day Cherelle Wilson Risperdal 2 mg tablet active Take 1 tablet by mouth once a day Cherelle Wilson Coreg 6.25 mg tablet completed TAKE 1 TABLET BY MOUTH TWICE DAILY - 5 Shiloh Floyd ABRAHAM hydralazine 25 mg tablet active Take 1 tablet by mouth twice a day Cherelle Wilson amlodipine 10 mg tablet completed - 6 Cherelle Wilson atorvastatin 20 mg tablet completed - 6 Cherelle Wilson metoprolol tartrate 25 mg tablet completed - 6 Cherelle iWlson BD Arlyn 2nd Gen Pen Needle 32 gauge x 5/32 needle active USE DIRECTED FOUR TIMES DAILY Nolan Easy Touch 32 gauge x 5/32 needle active USE DIRECTED FOUR TIMES DAILY BD Ultra-Fine Arlyn Pen Needle 32 gauge x 5/32 needle active USE DIRECTED FOUR TIMES DAILY Nolan FeroSul 325 mg (65 mg iron) tablet active TAKE 1 TABLET BY MOUTH DAILY WITH BREAKFAST Lantus Solostar U-100 Insulin 100 unit/mL (3 mL) insulin pen active acetaminophen 500 mg tablet active Take as needed Cherelle Wilson atorvastatin 40 mg tablet active TAKE 1 TABLET BY MOUTH EVERY DAY fluticasone propionate 50 mcg/actuation spray,suspension active Use 1 spray(s) in each nostril twice daily SOCIAL HISTORY Date Observation Value Provider number of grandchildren Meghann Barrientos SECURITY PATROL DRIVER smoking status Never smoker Shiloh Bonilla ri SECURITY PATROL DRIVER smoking status Never smoker INSURANCE PROVIDERS Payer name Policy type / Coverage type [place] red green party ID [facility] Medicaid 0 [id number] [place] MED[place]ARE PART B Medicare [id number] ADVANCE DIRECTIVES Name Date DISCUSSED - NO DECISION MADE TREATMENT PLAN Date Name Performer Cardiology Shiloh Barrientos SECURITY PATROL DRIVER Cardiology: T he following medications were removed from the medication list: Atorvastatin 20 Mg Tablet (Atorvastatin) Her updated medication list for this problem includes: Atorvastatin 40 Mg Tablet (Atorvastatin) ..... Take 1 tablet by mouth every day Shiloh Florencialuri SECURITY PATROL DRIVER Cardiology: B P today: 119/57 P rior BP: 192/91 (11/30/2023) Decresed coreg dose to 3.125 due to bradycardia, HR 55 Shiloh Florencialuri SECURITY PATROL DRIVER Cardiology: p er louver door assembler Dr. espinoza Barrientos NP Cardiology:A1c 8.2 Her updated medication list for this problem includes: Lantus Solostar U-100 Insulin 100 Unit/ml (3 Ml) Insulin Pen (Insulin glargine) Shiloh Florencialuri SECURITY PATROL DRIVER Cardiology:Hgb 9.5 Shiloh Florencialuri SECURITY PATROL DRIVER Cardiology: A ppears compensated, continue current medications N o SOB E F 60-65% Shiloh Barrientos NP Cardiology Meghann Aguilar Cardiology Meghann Aguilar Cardiology: B P today: 192/91 Her updated medication list for this problem includes: Amlodipine 10 Mg Tablet (Amlodipine) Metoprolol Tartrate 25 Mg Tablet (Metoprolol tartrate) Meghann Coleman MD Cardiology: H er updated medication list for this problem includes: Atorvastatin 40 Mg Tablet (Atorvastatin) ..... Take 1 tablet by mouth every day Meghann Coleman MD Cardiology:per louver door assembler Dr. espinoza Coleman MD Cardiology:Appears c ompensated, continue current medications Meghann Coleman MD Date Name Arterial Duplex Bi-L ower EX HISTORY OF PROCEDURES Procedure Date Procedure Name Provider Procedure Notes S tatus Complex e/m visit add on Isidro Hahn MD completed EKG Meghann Coleman MD complet ed
--- OUTSIDE RECORDS SUMMARY | 2024-07-04 03:58 | XMS_ITS ---
Author Organization [facility] Address Unknown Problems Problem Status Start Date End Date TYPE 2 DIABETES MELLITUS WIT H DIABETIC NEUROPATHY, UNSPECIFIED (E11.40 - ICD-10-CM) ACTIVE 08/22/2021 WEAKNESS (R53.1 - ICD-10-CM) ACTIVE 08/22/2021 UNSTEADINESS ON FEET (R26.81 - ICD-10-CM) ACTIVE 08/22/2021 RETENTION OF URINE, UNSPECIFIED (R33.9 - ICD-10-CM) AC TIVE 08/22/2021 ESSENTIAL (PRIMARY) HYPERTENSION (I10 - ICD-10-CM) ACT FACUNDO 08/22/2021 HYPERLIPIDEMIA, UNSPECIFIED (E78.5 - ICD-10-CM) ACTIVE 08/22/2021 ANEMIA, UNSPECIFIED (D64.9 - ICD-10-CM) ACTIVE 0 08/22/2021 HISTORY OF FALLING (Z91.81 - ICD-10-CM) ACTIVE 0 08/22/2021 CHRONIC KIDNEY DISEASE, UNSPECIFIED (N18.9 - ICD-10-CM ) ACTIVE 08/22/2021 SCHIZOPHRENIA, UNSPECIFIED (F20.9 - ICD-10-CM) ACTIVE 08/22/2021 TYPE 2 DIABETES MELLITUS WIT HOUT COMPLICATIONS (E11.9 - ICD-10-CM) ACTIVE 08/22/2021 UNSPECIFIED DEMENTIA, UNSPEC IFIED SEVERITY, WITHOUT BEHAVIORAL DISTURBANCE, PSYCHOTIC DISTURBANCE, MOOD DISTURBANCE, AND ANXIETY (F03.90 - ICD-10-CM) ACTIVE 08/22/2021 UNSPECIFIED OSTEOARTHRITIS, UNSPECIFIED SITE (M19.90 - ICD-10-CM) ACTIVE 08/22/2021 Results * UTO-PATIENT DISCHARGED Performed by: [place] [address] [facility] [address] Component Value Range Date TEST NAME CBC,CMP,ZULAY,GLYC,IRON,VITD,B12 02/21/2022 11:03 am EDT PATIENT DISCHARGED * 11:03 am EDT Encounters Encounter Performer Performer Role Encounter Diagnoses Location Date Discharge - Discharged to home or self care - Home - Private home/apt. with home health services [facility] 08/22/2021 11:53 am EST - 09/04/2021 07:00 pm EDT Social History
--- OUTSIDE RECORDS SUMMARY | 2024-07-04 03:58 | XMS_ITS ---
Author Organization [facility] Address Unknown Problems Problem Status Start Date End Date COVID-19 (Primary) (U07.1 - ICD-10-CM) ACTIVE SCHIZOPHRENIA (F20 - ICD-10-CM) ACTIVE IRON DEFICIENCY ANEMIA (D50 - ICD-10-CM) RESOLVED 08/15/2021 08/15/2021 TYPE 2 DIABETES MELLITUS WIT H DIABETIC NEUROPATHY, UNSPECIFIED (E11.40 - ICD-10-CM) ACTIVE 08/14/2021 ESSENTIAL (PRIMARY) HYPERTENSION (I10 - ICD-10-CM) ACT FACUNDO 08/14/2021 GASTRO-ESOPHAGEAL REFLUX DIS EASE WITHOUT ESOPHAGITIS (K21.9 - ICD-10-CM) RESOLVED 08/15/2021 08/15/2021 OTHER HYPERLIPIDEMIA (E78.49 - ICD-10-CM) RESOLVED 08/15/2021 08/15/2021 ALZHEIMER'S DISEASE (G30 - ICD-10-CM) RESOLVED 08/15/2021 SCHIZOAFFECTIVE DISORDER, 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) RESOLVED 08/15/2021 08/15/2021 SCHIZOAFFECTIVE DISORDER, 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) ACTIVE 08/15/2021 ANEMIA, UNSPECIFIED (D64.9 - ICD-10-CM) ACTIVE 0 08/14/2021 ALZHEIMER'S DISEASE, UNSPECIFIED (G30.9 - ICD-10-CM) A CTIVE 08/14/2021 IRON DEFICIENCY ANEMIA (D50 - ICD-10-CM) ACTIVE 08/14/2021 GASTRO-ESOPHAGEAL REFLUX DIS EASE WITHOUT ESOPHAGITIS (K21.9 - ICD-10-CM) ACTIVE 08/14/2021 OTHER HYPERLIPIDEMIA (E78.49 - ICD-10-CM) ACTIVE 08/14/2021 ALZHEIMER'S DISEASE (G30 - ICD-10-CM) ACTIVE Encounters Encounter Performer Performer Role Encounter Diagnoses Location Date Discharge - Discharged / Transferred to SNF - [facility] 2 09:57 pm EST - 2 11:50 am EST Social History
--- OUTSIDE RECORDS SUMMARY | 2024-07-04 03:59 | XMS_ITS ---
Author Organization [facility] Address Unknown Problems Problem Status Start Date End Date TYPE 2 DIABETES MELLITUS WIT H DIABETIC NEUROPATHY, UNSPECIFIED (Primary) (E11.40 - ICD-10-CM) ACTIVE 08/22/2021 RETENTION OF URINE, UNSPECIFIED (R33.9 - ICD-10-CM) AC TIVE 08/22/2021 WEAKNESS (R53.1 - ICD-10-CM) ACTIVE 08/22/2021 UNSTEADINESS ON FEET (R26.81 - ICD-10-CM) ACTIVE 08/22/2021 UNSPECIFIED DEMENTIA, UNSPEC IFIED SEVERITY, WITHOUT BEHAVIORAL DISTURBANCE, PSYCHOTIC DISTURBANCE, MOOD DISTURBANCE, AND ANXIETY (F03.90 - ICD-10-CM) ACTIVE 08/22/2021 SCHIZOPHRENIA, UNSPECIFIED (F20.9 - ICD-10-CM) ACTIVE 08/22/2021 TYPE 2 DIABETES MELLITUS WIT HOUT COMPLICATIONS (E11.9 - ICD-10-CM) ACTIVE 08/22/2021 ESSENTIAL (PRIMARY) HYPERTENSION (I10 - ICD-10-CM) ACT FACUNDO 08/22/2021 HYPERLIPIDEMIA, UNSPECIFIED (E78.5 - ICD-10-CM) ACTIVE 08/22/2021 CHRONIC KIDNEY DISEASE, UNSPECIFIED (N18.9 - ICD-10-CM ) ACTIVE 08/22/2021 ANEMIA, UNSPECIFIED (D64.9 - ICD-10-CM) ACTIVE 0 08/22/2021 UNSPECIFIED OSTEOARTHRITIS, UNSPECIFIED SITE (M19.90 - ICD-10-CM) ACTIVE 08/22/2021 HISTORY OF FALLING (Z91.81 - ICD-10-CM) ACTIVE 0 08/22/2021 Encounters Encounter Performer Performer Role Encounter Diagnoses Location Date Discharge - Discharged to home or self care - Home - Private home/apt. with home health services [facility] 2 11:53 am EST - 2 07:00 pm EDT Social History
--- OUTSIDE RECORDS SUMMARY | 2024-07-04 03:59 | XMS_ITS ---
Author Organization 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) ACTIVE 11/13/2022 TYPE 2 DIABETES MELLITUS WIT H DIABETIC CHRONIC KIDNEY DISEASE (E11.22 - ICD-10-CM) ACTIVE 11/13/2022 TYPE 2 DIABETES MELLITUS WIT H DIABETIC NEUROPATHY, UNSPECIFIED (E11.40 - ICD-10-CM) ACTIVE 11/13/2022 ANEMIA IN CHRONIC KIDNEY DISEASE (D63.1 - ICD-10-CM) A CTIVE 11/13/2022 HYPERTENSION SECONDARY TO EN DOCRINE DISORDERS (I15.2 - ICD-10-CM) ACTIVE 11/13/2022 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) ACTIVE 11/13/2022 DEMENTIA IN OTHER DISEASES C LASSIFIED ELSEWHERE, UNSPECIFIED SEVERITY, WITHOUT BEHAVIORAL DISTURBANCE, PSYCHOTIC DISTURBANCE, MOOD DISTURBANCE, AND ANXIETY (F02.80 - ICD-10-CM) ACTIVE 11/13/2022 SHELTER (CURRENT) USE OF INSULIN (Z79.4 - ICD-10-CM) ACTIVE 11/13/2022 COGNITIVE COMMUNICATION DEFICIT (R41.841 - ICD-10-CM) ACTIVE 11/13/2022 OTHER ABNORMALITIES OF GAIT AND MOBILITY (R26.89 - ICD-10-CM) ACTIVE 11/13/2022 UNSTEADINESS ON FEET (R26.81 - ICD-10-CM) ACTIVE 11/13/2022 MUSCLE WEAKNESS (GENERALIZED) (M62.81 - ICD-10-CM) ACT FACUNDO 11/13/2022 UNSPECIFIED ABNORMAL FINDING S IN URINE (R82.90 - ICD-10-CM) ACTIVE 11/13/2022 GASTRO-ESOPHAGEAL REFLUX DIS EASE WITHOUT ESOPHAGITIS (K21.9 - ICD-10-CM) ACTIVE 11/13/2022 HYPERLIPIDEMIA, UNSPECIFIED (E78.5 - ICD-10-CM) ACTIVE 11/13/2022 ACUTE HEMATOGENOUS OSTEOMYEL ITIS, OTHER SITES (M86.08 - ICD-10-CM) ACTIVE 11/14/2022 SCHIZOAFFECTIVE DISORDER, 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) RESOLVED 11/13/2022 11/13/2022 OSTEOMYELITIS, UNSPECIFIED (M86.9 - ICD-10-CM) RESOLVE D 11/06/2022 11/13/2022 Results * CMP-COMPREHENSIVE METABOLIC PNL Performed by: [address], [place] [id number] Component Value Range Date POTASSIUM 4.4 mEq/L 3.5-5.3 11/25/2022 08:4 6 pm EDT SODIUM 144 mEq/L 136-145 11/25/2022 08:4 6 pm EDT BUN (UREA NITROGEN) 43 mg/dL 7-25 11/26/19 23 08:46 pm EDT CARBON DIOXIDE (CO2) 24 mEq/L 21-33 023 08:46 pm EDT * CBC W/DIFF Performed by: [address], [place] [id number] Component Value Range Date HEMOGLOBIN 7.6 g/dL 12.0-16.0 11/25/2022 08:4 6 pm EDT * CMP-COMPREHENSIVE METABOLIC PNL Performed by: [address], [place] [id number] Component Value Range Date CHLORIDE 108 mEq/L 98-110 11/25/2022 08:4 6 pm EDT * CBC W/DIFF Performed by: [address], [place] [address] Component Value Range Date RBC 2.48 M/cmm 3.90-5.40 11/25/2022 08:4 6 pm EDT MCHC 31.7 g/dL 31.0-36.5 11/25/2022 08:4 6 pm EDT MCH 30.5 pg 26.0-35.0 11/25/2022 08:4 6 pm EDT HEMATOCRIT 23.9 % 36.0-48.0 11/25/2022 08:4 6 pm EDT WBC 8.9 K/cmm 4.5-10.8 11/25/2022 08:4 6 pm EDT * CMP-COMPREHENSIVE METABOLIC PNL Performed by: [address], [place] [id number] Component Value Range Date ALT (SGPT) 8 IU/L 4-55 11/25/2022 08:4 6 pm EDT AST (SGOT) 13 IU/L 4-40 11/25/2022 08:4 6 pm EDT ALBUMIN 2.6 g/dL 3.5-5.5 11/25/2022 08:4 6 pm EDT PROTEIN, TOTAL 5.7 g/dL 6.0-8.3 11/25/2022 08 :46 pm EDT ALKALINE PHOS 102 IU/L 34-136 11/25/2022 08: 46 pm EDT * CBC W/DIFF Performed by: [address], [place] [id number] Component Value Range Date RDW 16.8 % 11.0-16.0 11/25/2022 08:4 6 pm EDT NEUTROPHILS 54.9 % 40.0-80.0 11/25/2022 08:4 6 pm EDT BASO (ABSOLUTE) 0.10 K/uL 0.00-0.30 11/25/2022 0 8:46 pm EDT * CMP-COMPREHENSIVE METABOLIC PNL Performed by: [address], [place] [address] Component Value Range Date DVD-GAL-SRHAGEO 19 mL/min/1.73 m2 >60 11/25/2022 08:46 pm EDT * CBC W/DIFF Performed by: [address], [place] [address] Component Value Range Date PLATELET 292 K/cmm 150-450 11/25/2022 08:4 6 pm EDT * CMP-COMPREHENSIVE METABOLIC PNL Performed by: [address], [place] [id number] Component Value Range Date GFR- 23 mL/min/1.73 m2 >60 08:46 pm EDT * CBC W/DIFF Performed by: [address], [address] [address] Component Value Range Date MCV 96.2 fL 80.0-100.0 11/25/2022 08:4 6 pm EDT LYMPHS (ABSOLUTE) 2.90 K/uL 0.90-5.50 11/25/2022 08:46 pm EDT MONOCYTES 8.8 % 2.0-12.0 11/25/2022 08:4 6 pm EDT LYMPHS 33.0 % 13.0-48.0 11/25/2022 08:4 6 pm EDT BASO 0.7 % 0.0-2.0 11/25/2022 08:4 6 pm EDT EOS 2.6 % 0.0-8.0 11/25/2022 08:4 6 pm EDT NEUTS (ABSOLUTE) 4.90 K/uL 1.50-7.60 11/25/2022 08:46 pm EDT EOS (ABSOLUTE) 0.20 K/uL 0.20-0.80 11/25/2022 08 :46 pm EDT MONOCYTES (ABSOLUTE) 0.80 K/uL 0.15-1.10 023 08:46 pm EDT * CMP-COMPREHENSIVE METABOLIC PNL Performed by: [address], [address] [id number] Component Value Range Date BUN/CREATININE RATIO 17 6-25 023 08:46 pm EDT A/G RATIO 0.8 0.8-2.0 11/25/2022 08:4 6 pm EDT * GLYCO-HGBA1C Performed by: [address], [address] [id number] Component Value Range Date GLYCOHEMOGLOBIN-HGBA1C 7.8 % 4.1-6.1 11/25 08:46 pm EDT * Individual Tests: CMP-COMPREHENSIVE METABOLIC PNL / GLYCO-HGBA1C / CBC W/DIFF / TSH 3-UL / VITAMIN D 25-OH TOTAL / VANCOMYCIN (TR) Performed by: [address], [address] [address] Component Value Range Date TSH 3-UL 1.002 uIU/mL 0.340-5.500 11/25/2022 08:4 6 pm EDT * CBC W/DIFF Performed by: [address], [address] [address] Component Value Range Date MPV 8.8 fL 6.5-12.0 11/25/2022 08:4 6 pm EDT * Individual Tests: CMP-COMPREHENSIVE METABOLIC PNL / GLYCO-HGBA1C / CBC W/DIFF / TSH 3-UL / VITAMIN D 25-OH TOTAL / VANCOMYCIN (TR) Performed by: [address], [address] [address] Component Value Range Date VANCOMYCIN (TR) 12.0 ug/mL 10-20 11/25/2022 0 8:46 pm EDT * CBC W/DIFF Performed by: [address], [address] [id number] Component Value Range Date NUCLEATED RBC 0.1 NRBC/100 WBC <1.0 11/25/2022 08:46 pm EDT * CMP-COMPREHENSIVE METABOLIC PNL Performed by: [address], [address] [id number] Component Value Range Date CREATININE 2.5 mg/dL 0.6-1.2 11/25/2022 08:4 6 pm EDT GLUCOSE 63 mg/dL 11/25/2022 08:4 6 pm EDT CALCIUM 8.3 mg/dL 8.6-10.3 11/25/2022 08:4 6 pm EDT BILIRUBIN, TOTAL 0.2 mg/dL 0.2-1.2 11/25/2022 08:46 pm EDT * GLYCO-HGBA1C Performed by: [address], [address] [address] Component Value Range Date eAG (Mean Glucose) 177 mg/dL <136 08:46 pm EDT * CBC W/DIFF Performed by: [address], [address] [address] Component Value Range Date ANISOCYTOSIS 1+ NEGATIVE 11/25/2022 08:4 6 pm EDT * Individual Tests: CMP-COMPREHENSIVE METABOLIC PNL / GLYCO-HGBA1C / CBC W/DIFF / TSH 3-UL / VITAMIN D 25-OH TOTAL / VANCOMYCIN (TR) Performed by: [address], [place] [id number] Component Value Range Date VITAMIN D 25-OH TOTAL 11 ng/mL 30-100 2022 08:46 pm EDT * CBC W/DIFF Performed by: [address], [address] [id number] Component Value Range Date HEMOGLOBIN 8.1 g/dL 12.0-16.0 11/20/2022 03:4 3 pm EDT ANISOCYTOSIS 1+ NEGATIVE 11/20/2022 03:4 3 pm EDT * CMP-COMPREHENSIVE METABOLIC PNL Performed by: [address], [address] [address] Component Value Range Date CALCIUM 9.0 mg/dL 8.6-10.3 11/20/2022 03:4 3 pm EDT BILIRUBIN, TOTAL 0.2 mg/dL 0.2-1.2 11/20/2022 03:43 pm EDT CREATININE 1.9 mg/dL 0.6-1.2 11/20/2022 03:4 3 pm EDT GLUCOSE 105 mg/dL 11/20/2022 03:4 3 pm EDT * CBC W/DIFF Performed by: [address], [address] [address] Component Value Range Date NUCLEATED RBC 0.1 NRBC/100 WBC <1.0 11/20/2022 03:43 pm EDT * Individual Tests: CMP-COMPREHENSIVE METABOLIC PNL / CBC W/DIFF / VANCOMYCIN (TR) Performed by: [address], [address] [id number] Component Value Range Date VANCOMYCIN (TR) 14.9 ug/mL 10-20 11/20/2022 0 3:43 pm EDT * CBC W/DIFF Performed by: [address], [place] [address] Component Value Range Date MPV 8.6 fL 6.5-12.0 11/20/2022 03:4 3 pm EDT * CMP-COMPREHENSIVE METABOLIC PNL Performed by: [address], [place] [id number] Component Value Range Date BUN/CREATININE RATIO 17 6-25 023 03:43 pm EDT A/G RATIO 0.8 0.8-2.0 11/20/2022 03:4 3 pm EDT * CBC W/DIFF Performed by: [address], [place] [id number] Component Value Range Date EOS (ABSOLUTE) 0.20 K/uL 0.20-0.80 11/20/2022 03 :43 pm EDT MONOCYTES (ABSOLUTE) 0.70 K/uL 0.15-1.10 023 03:43 pm EDT EOS 2.8 % 0.0-8.0 11/20/2022 03:4 3 pm EDT NEUTS (ABSOLUTE) 4.50 K/uL 1.50-7.60 11/20/2022 03:43 pm EDT LYMPHS 35.0 % 13.0-48.0 11/20/2022 03:4 3 pm EDT BASO 1.0 % 0.0-2.0 11/20/2022 03:4 3 pm EDT LYMPHS (ABSOLUTE) 3.00 K/uL 0.90-5.50 11/20/2022 03:43 pm EDT MONOCYTES 8.4 % 2.0-12.0 11/20/2022 03:4 3 pm EDT MCV 95.6 fL 80.0-100.0 11/20/2022 03:4 3 pm EDT * CMP-COMPREHENSIVE METABOLIC PNL Performed by: [address], [place] [id number] Component Value Range Date AST (SGOT) 16 IU/L 4-40 11/20/2022 03:4 3 pm EDT CMU-PEA-WEKVGFF 26 mL/min/1.73 m2 >60 11/20/2022 03:43 pm EDT GFR- 31 mL/min/1.73 m2 >60 03:43 pm EDT * CBC W/DIFF Performed by: [address], [place] [id number] Component Value Range Date NEUTROPHILS 52.8 % 40.0-80.0 11/20/2022 03:4 3 pm EDT BASO (ABSOLUTE) 0.10 K/uL 0.00-0.30 11/20/2022 0 3:43 pm EDT * CMP-COMPREHENSIVE METABOLIC PNL Performed by: [address], [place] [id number] Component Value Range Date ALKALINE PHOS 119 IU/L 34-136 11/20/2022 03: 43 pm EDT * CBC W/DIFF Performed by: [address], [place] [address] Component Value Range Date RDW 17.1 % 11.0-16.0 11/20/2022 03:4 3 pm EDT * CMP-COMPREHENSIVE METABOLIC PNL Performed by: [address], [place] [address] Component Value Range Date ALBUMIN 2.8 g/dL 3.5-5.5 11/20/2022 03:4 3 pm EDT PROTEIN, TOTAL 6.2 g/dL 6.0-8.3 11/20/2022 03 :43 pm EDT * CBC W/DIFF Performed by: [address], [place] [address] Component Value Range Date PLATELET 336 K/cmm 150-450 11/20/2022 03:4 3 pm EDT * CMP-COMPREHENSIVE METABOLIC PNL Performed by: [address], [place] [id number] Component Value Range Date ALT (SGPT) 13 IU/L 4-55 11/20/2022 03:4 3 pm EDT * CBC W/DIFF Performed by: [address], [place] [id number] Component Value Range Date HEMATOCRIT 25.9 % 36.0-48.0 11/20/2022 03:4 3 pm EDT WBC 8.6 K/cmm 4.5-10.8 11/20/2022 03:4 3 pm EDT MCHC 31.4 g/dL 31.0-36.5 11/20/2022 03:4 3 pm EDT MCH 30.0 pg 26.0-35.0 11/20/2022 03:4 3 pm EDT RBC 2.71 M/cmm 3.90-5.40 11/20/2022 03:4 3 pm EDT * CMP-COMPREHENSIVE METABOLIC PNL Performed by: [address], [address] [id number] Component Value Range Date POTASSIUM 4.7 mEq/L 3.5-5.3 11/20/2022 03:4 3 pm EDT CARBON DIOXIDE (CO2) 26 mEq/L 21-33 023 03:43 pm EDT CHLORIDE 110 mEq/L 98-110 11/20/2022 03:4 3 pm EDT SODIUM 146 mEq/L 136-145 11/20/2022 03:4 3 pm EDT BUN (UREA NITROGEN) 33 mg/dL 7-25 11/21/19 23 03:43 pm EDT * Individual Tests: [place], [place] Performed by: [address], [place] [id number] Component Value Range Date [facility]/[place], [place] * 11/18/2022 03:33 pm EDT * REFUSAL (FIRST ATTEMPT) Performed by: [address], [address] [id number] Component Value Range Date REFUSAL (FIRST ATTEMPT) * 10/22 02:14 pm EDT NOTIFIED NURSE(NAME): NURSE UNSPECIFIED 0 11/18/2022 02:14 pm EDT LAB WILL REDRAW (DATE): NURSE TO RESCHEDULE 11/18/2022 02:14 pm EDT TESTS ORDERED: A1C, TSH, VIT D 11/18/2022 02:14 pm EDT Encounters Encounter Performer Performer Role Encounter Diagnoses Location Date Discharge - Discharged / Transferred to another hospital - [facility] [place] - [facility] 11/13/2022 08:15 pm EDT - 11/30/2022 11:25 am EDT Reason For Referral Edema (new or worsening) Social History
--- OUTSIDE RECORDS SUMMARY | 2024-07-04 03:59 | XMS_ITS | Clinical Summary ---
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 Name Role Phone Cherelle Corcoran MD Primary Care Pro vider Mark Queen MD Unavailable [phone] Rudolph Welch MD Unavailable Markie Ryan MD Unavailable [phone] Jimbo Strauss MD Unavailable [phone] Jaya Grier MD Unavailable Allergies No known active allergies Medications lidocaine (ASPERCREME) 4 % adhesive patch,medicated Place 1 patch on the skin daily as needed to lower back Active blood-glucose sensor (FreeStyle Madhav 3 Sensor) deviceIndications :Type 2 diabetes mellitus with diabetic neuropathy, with long-term current use of insulin (HCC) Use for continuous glucose monitoring. Change sensor every 14 days 6 each 3 024 Active flash glucose scanning reader miscIndications:T ype 2 diabetes mellitus with diabetic neuropathy, with long-term current use of insulin (HCC) Use Madhav 3 reader to scan Madhav 3 sensor 1 each 024 Active insulin lispro (HumaLOG, ADMELOG) 100 unit/mL vial for injection Inject 4 Units under the skin 3 (three) times a day before meals Gets 4 units at baseline then 1 unit for every 50 over 150 Active polyethylene glycol (MIRALAX) 17 gram/dose bulk powder Take 17 g by mouth daily as needed (Constipation) 595 g Active FreeStyle Madhav 3 [place] [facility] [place] Use Madhav 3 reader to scan Madhav 3 sensor Active pen needle, diabetic (Easy Touch) 32 gauge x 5/32 needleIndications :Type 2 diabetes mellitus with diabetic neuropathy, with long-term current use of insulin (HCC) USE DIRECTED FOUR TIMES DAILY 100 each 3 Active fluticasone propionate (FLONASE) 50 mcg/actuation nasal spray Administer 2 sprays into each nostril daily as needed for rhinitis Active insulin glargine 100 unit/mL (3 mL) pen for injection Inject 18 Units under the skin nightly Active docusate sodium (COLACE) 100 mg capsule Take 1 capsule (100 mg total) by mouth every 12 (twelve) hours 60 capsule Active acetaminophen 500 mg capsule Take 2 capsules (1,000 mg total) by mouth 3 (three) times a day as needed for mild pain (pain scale 1-4) Active atorvastatin (LIPITOR) 40 mg tablet Take 1 tablet (40 mg total) by mouth nightly 30 tablet 11 024 2024 Active hydrALAZINE (APRESOLINE) 25 mg tabletIndications :hypertension Take 1 tablet (25 mg total) by mouth 2 (two) times a day 60 tablet 1 Active sucralfate (CARAFATE) 1 gram tabletIndications :Gastritis, presence of bleeding unspecified, unspecified chronicity, unspecified gastritis type Take 1 tablet (1 g total) by mouth 4 (four) times a day 120 tablet 1 024 2024 Active Additional Information Patient taking differently:1 g oral 4 times daily,Does not take consistently, Reported on 05/18/2024 sucroferric oxyhydroxide 500 mg tablet,chewable Take 0.5 tablets by mouth 3 (three) times a day Active traMADoL (ULTRAM) 25 mg tabletIndications :Arthropathy of left shoulder Take 1 tablet (25 mg total) by mouth every 8 (eight) hours as needed for pain 90 tablet Active FeroSuL 325 mg (65 mg iron) tabletIndications :Iron deficiency anemia, unspecified iron deficiency anemia type Take 1 tablet (325 mg total) by mouth daily with breakfast 90 tablet 1 Active aspirin 81 mg chewable tablet Take 1 tablet (81 mg total) by mouth daily 90 tablet [address] (PROTONIX) 40 mg EC tabletIndications :Gastroesophageal reflux disease without esophagitis TAKE 1 TABLET(40 MG) BY MOUTH TWICE DAILY 180 tablet Active methoxy peg-epoetin beta (MIRCERA INJ) 75 mcg once every 2 weeks 024 2024 Active NIFEdipine (NIFEdipine CC) 90 mg 24 hr tabletIndications :Primary hypertension Take 1 tablet (90 mg total) by mouth daily 024 2024 Active carvediloL (COREG) 3.125 mg tablet Take 1 tablet (3.125 mg total) by mouth 2 (two) times a day Active alpha lipoic acid 600 mg capsuleIndication s:Type 2 diabetes mellitus with diabetic neuropathy, with long-term current use of insulin (HCC),Diabetes, polyneuropathy (CMS/HCC) ([facility]) Take 1 capsule (600 mg total) by mouth daily 30 capsule 1 024 2024 Active benztropine (COGENTIN) 2 mg tabletIndications :Parkinsonism, unspecified Parkinsonism type ([facility]) Take 1 tablet (2 mg total) by mouth daily 90 tablet 3 024 2024 Active risperiDONE (RisperDAL) 2 mg tablet TAKE 1 TABLET(2 MG) BY MOUTH EVERY NIGHT 30 tablet 11 024 2024 Active gabapentin (NEURONTIN) 100 mg capsuleIndication s:Diabetic polyneuropathy associated with type 2 diabetes mellitus (CMS/HCC) ([facility]) TAKE 1 CAPSULE BY MOUTH 3 TIMES PER WEEK AFTER HEMODIALYSIS 40 capsule 1 Active omeprazole (PriLOSEC) 20 mg capsuleIndication s:Gastroesophagea l reflux disease, unspecified whether esophagitis present Take 1 capsule (20 mg total) by mouth daily 90 capsule 2021 Discontinued gabapentin (NEURONTIN) 100 mg capsuleIndication s:Diabetic polyneuropathy associated with type 2 diabetes mellitus (CMS/HCC) (HCC) TAKE 1 CAPSULE BY MOUTH 3 TIMES PER WEEK AFTER HEMODIALYSIS 12 capsule 2 024 2023 Discontinued(R eorder) Active Problems Problem Noted Date Diagnosed Date Anemia 06/17/2024 Gastritis without bleeding 06/17/2024 Thalamic stroke 04/22/2024 Unresponsive episode 04/21/2024 Debility 04/21/2024 Metabolic encephalopathy 04/19/2024 Involuntary movements 03/18/2024 Left hand pain 03/16/2024 Complete tear of left rotator cuff 02/05/2024 Upper GI bleeding 01/30/2024 Coffee ground emesis 01/29/2024 Screening for colon cancer 01/18/2024 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 Patient is minimally symptomatic though does report some urinary frequency and has elevated WBC. She still makes urine despite ESRD. - Bcx NGTD -transition from IV linezolid to PO linezolid; plan for 3 day course ESRD on dialysis 12/20/2023 Assessment & Plan (01/05/2024 12:29 PM CDT): Following with nephrology Anemia of renal disease 12/20/2023 Transient loss of consciousness 12/19/2023 Leukocytosis 12/19/2023 Left shoulder pain 12/11/2023 Assessment & Plan (12/20/2023 7:34 PM CDT): Acute, no known injury. Physical examination limited by telemedicine but restricting movement. Concerns for injury of some sort. X-ray ordered. Further management as per results. Daughter will take the patient for these x-rays. She will call the patient's primary care physician for follow-up. Arthropathy of left shoulder 12/11/2023 Assessment & Plan (02/09/2024 10:43 AM CDT): Following with orthopedics, reviewed note Will have HONEY Delgado follow up on PA for tramadol Assessment & Plan (01/11/2024 4:03 PM CDT): Uncontrolled despite injection Has improvement with tramadol and tolerated without side effects per daughter, refilled Following with orthopedics, upcoming MRI Assessment & Plan (01/01/2024 4:53 PM CDT): Uncontrolled despite injection Given short course of tramadol, discussed using goodrx at pharmacy Will reach out to orthopedics, appointment not until Aug Has home physical therapy/OT set up CKD (chronic kidney disease) stage 4, GFR 15-29 ml/min ([facility]) 12/07/2023 Tinnitus of both ears 11/04/2023 Mixed conductive and sensori neural hearing loss of both ears 11/04/2023 Dysfunction of both eustachian tubes 11/04/2023 ESRD on hemodialysis ([facility]) 11/02/2023 Assessment & Plan (01/06/2024 12:53 PM CDT): History of ESRD on HD Tue/Th/Sat. Missed HD session on 01/04 due to ED calling patient in. BMP without significant electrolyte abnormalities, patient does not appear hypervolemic, but BP is elevated (did miss taking all antihypertensives this AM). No urgent/emergent need for dialysis at this time. -nephrology c/s for HD; plan for short session today -BMP, phos ordered daily Assessment & Plan (11/10/2023 4:43 PM CDT): Following with nephrology AMS (altered mental status) 10/30/2023 Assessment & Plan (05/06/2024 7:49 AM RECREATION THERAPY AIDE): Reviewed hospital discharge summary Now resolved Upcoming appointment with neurology Leg swelling 10/07/2023 Bandemia 12/20/2022 Shortness of breath 12/13/2022 Chronic diastolic congestive heart failure ([facility]/ [facility]) 12/06/2022 Assessment & Plan (01/05/2024 10:46 PM CDT): Patient euvolemic at this time. -continue coreg, nifedipine, hydralazine for BP control -nephrology c/s for HD Bibasilar consolidations 12/06/2022 Movement disorder 12/06/2022 Abnormal urinalysis 11/07/2022 Anemia in chronic kidney disease, on chronic sara lysis 10/10/2022 Assessment & Plan (11/12/2023 1:01 PM CDT): Last h/h stable Assessment & Plan (07/24/2023 1:51 PM RECREATION THERAPY AIDE): Chronic/stable Parkinsonism 08/14/2022 Assessment & Plan (11/10/2023 4:43 PM CDT): Following with neurology On cogentin Assessment & Plan (07/24/2023 1:50 PM RECREATION THERAPY AIDE): Following with neurology On cogentin twice a day Assessment & Plan (01/23/2023 9:20 AM CDT): Following with neurology On cogentin twice a day Assessment & Plan (10/10/2022 10:41 AM CDT): Following with neurology On cogentin Assessment & Plan (08/14/2022 10:46 AM RECREATION THERAPY AIDE): Following with neurology, reviewed note On cogentin Pulmonary nodule 11/16/2021 Assessment & Plan (01/14/2022 9:05 AM CDT): Reviewed with daughter need to repeat in 1y Assessment & Plan (11/25/2021 2:06 PM CDT): CT chest: Right upper lobe 3 mm pulmonary nodule, indeterminate but likely infectious or inflammatory in etiology given the patient's history. Follow-up CT chest in one year to document resolution. Assessment & Plan (11/24/2021 2:07 PM CDT): CT chest: Right upper lobe 3 mm pulmonary nodule, indeterminate but likely infectious or inflammatory in etiology given the patient's history. Follow-up CT chest in one year to document resolution. Assessment & Plan (11/23/2021 12:24 PM CDT): CT chest: Right upper lobe 3 mm pulmonary nodule, indeterminate but likely infectious or inflammatory in etiology given the patient's history. Follow-up CT chest in one year to document resolution. Assessment & Plan (11/22/2021 1:35 PM CDT): CT chest: Right upper lobe 3 mm pulmonary nodule, indeterminate but likely infectious or inflammatory in etiology given the patient's history. Follow-up CT chest in one year to document resolution. Assessment & Plan (11/21/2021 12:13 PM CDT): CT chest: Right upper lobe 3 mm pulmonary nodule, indeterminate but likely infectious or inflammatory in etiology given the patient's history. Follow-up CT chest in one year to document resolution. Assessment & Plan (11/20/2021 3:13 PM CDT): CT chest: Right upper lobe 3 mm pulmonary nodule, indeterminate but likely infectious or inflammatory in etiology given the patient's history. Follow-up CT chest in one year to document resolution. Assessment & Plan (11/19/2021 12:28 PM CDT): CT chest: Right upper lobe 3 mm pulmonary nodule, indeterminate but likely infectious or inflammatory in etiology given the patient's history. Follow-up CT chest in one year to document resolution. Assessment & Plan (11/18/2021 11:30 AM CDT): CT chest: Right upper lobe 3 mm pulmonary nodule, indeterminate but likely infectious or inflammatory in etiology given the patient's history. Follow-up CT chest in one year to document resolution. Assessment & Plan (11/17/2021 6:32 PM CDT): CT chest: Right upper lobe 3 mm pulmonary nodule, indeterminate but likely infectious or inflammatory in etiology given the patient's history. Follow-up CT chest in one year to document resolution. Assessment & Plan (11/16/2021 5:40 PM CDT): CT chest: Right upper lobe 3 mm pulmonary nodule, indeterminate but likely infectious or inflammatory in etiology given the patient's history. Follow-up CT chest in one year to document resolution. Physical deconditioning 11/15/2021 Assessment & Plan (11/25/2021 2:06 PM CDT): Deconditioning 2/2 prolonged hospitalization. Daughter reports that prior to her illness, she was independent with a walker. - PT/OT recommends SNF. -Plan [facility] SN[facility] on 11/26 ? Assessment & Plan (11/24/2021 2:07 PM CDT): Deconditioning 2/2 prolonged hospitalization. Daughter reports that prior to her illness, she was independent with a walker. - PT/OT recommends SNF. -Plan [facility] on 11/25. Assessment & Plan (11/23/2021 12:24 PM CDT): Deconditioning 2/2 prolonged hospitalization. Daughter reports that prior to her illness, she was independent with a walker. - PT/OT recommends SNF. -Plan [facility] SN[facility] on 11/25. Assessment & Plan (11/22/2021 1:34 PM CDT): Deconditioning 2/2 prolonged hospitalization. Daughter reports that prior to her illness, she was independent with a walker. - PT/OT recommends SNF. -Plan [facility], SNF on 11/25. Assessment & Plan (11/21/2021 12:13 PM CDT): Deconditioning 2/2 prolonged hospitalization. Daughter reports that prior to her illness, she was independent with a walker. - PT/OT recommends SNF. Assessment & Plan (11/20/2021 3:13 PM CDT): Deconditioning 2/2 prolonged hospitalization. Daughter reports that prior to her illness, she was independent with a walker. - PT/OT recommends SNF. Assessment & Plan (11/19/2021 12:28 PM CDT): Deconditioning 2/2 prolonged hospitalization. Daughter reports that prior to her illness, she was independent with a walker. - PT/OT recommends SNF. Assessment & Plan (11/18/2021 11:26 AM CDT): Deconditioning 2/2 prolonged hospitalization. Daughter reports that prior to her illness, she was independent with a walker. - PT/OT recommends SNF. Assessment & Plan (11/17/2021 6:27 PM CDT): Deconditioning 2/2 prolonged hospitalization. Daughter reports that prior to her illness, she was independent with a walker. - PT/OT recommends SNF. - In observing pt getting out of bed, she became lightheaded with change of position and is needing a lot of help even with transferring from bed to bedside commode. Stooping at the waist when standing up and needed 2 person assist. Assessment & Plan (11/16/2021 5:34 PM CDT): Deconditioning 2/2 prolonged hospitalization. Daughter reports that prior to her illness, she was independent with a walker. - PT/OT evals pending. - In observing pt getting out of bed, she became lightheaded with change of position and is needing a lot of help even with transferring from bed to bedside commode. Stooping at the waist when standing up and needed 2 person assist. Toe necrosis (CMS/HCC) 10/07/2021 Assessment & Plan (10/10/2022 10:36 AM CDT): Following with podiatry & wound care Assessment & Plan (08/14/2022 10:47 AM RECREATION THERAPY AIDE): Following with podiatry Assessment & Plan (04/02/2022 6:06 AM CDT): Following with vascular & podiatry No evidence of infection today, but advise close follow up with podiatry Assessment & Plan (10/07/2021 3:53 PM CDT): Assessment/plan: Superficial ulcer the left heel. Likely pressure ulceration during her hospitalizations recently. Keep offloading. Follow up in 1 week with ABIs and arterial Dopplers to rule out PVD Volume overload 09/06/2021 Assessment & Plan (09/18/2021 11:39 AM CDT): Due to progressive CRF4. Presents with increasing swelling, 6lb weight gain, daughter voicing concerns of exertional dyspnea/orthopnea as well. Last echo in 2019 grossly normal, per cards note had recent one with G1ddf. No ischemic hx or diuretic use. Has 1+ pitting edema in BL LE, no pulmonary edema on CXR, BNP 500. Renal function improved after 20 IV lasix on day of admission but held 9?) & further worsened with diuretics. Patient appears grossly volume overloaded. resumed diuretics lasix 40mg IV Q12 & tolerated. -Repeat TTE with normal LV/RV function. -UA 2+prot, Ucx insignif. Est Cr Cl 21 c/w CRF4. -abd US neg for hydro, cirrhosis. Suspect volume issues due to HTN/diabetic nephropathy. -reviewed telemetry personally, no events. Monitoring strict I/O. Goal net neg 1/2-1L/day. Weight down 6kg/admit. - renal consulted regarding volume management, possible long term care administrator dialysis planning, expedite OP f/u. Serologies and urine studies ordered. ED neg, compliments neg, cryoglobulin pending, ANCA pending, HIV neg. Continued -Added metolazone 2.5mg/daily per renal 09/13- with improving swelling, Cr bump to 2.33 so held further -Transitioned to PO agents prior to DC (09/17) with ongoing clinical improvement. Goal weight 155lbs -Home [place] family at [place], information technology security manager consulted to review salt restrictions. -outpatient BMP, phos, mag in 1 week and f/u Dr. Ryan in 2 weeks Assessment & Plan (09/16/2021 3:45 PM CDT): Due to progressive CRF4. Presents with increasing swelling, 6lb weight gain, daughter voicing concerns of exertional dyspnea/orthopnea as well. Last echo in 2019 grossly normal, per cards note had recent one with G1ddf. No ischemic hx or diuretic use. Has 1+ pitting edema in BL LE, no pulmonary edema on CXR, BNP 500. Renal function improved after 20 IV lasix on day of admission but held 9?) & further worsened with diuretics. Patient appears grossly volume overloaded. resumed diuretics lasix 40mg IV Q12 & tolerated. -Repeat TTE with normal LV/RV function. -UA 2+prot, Ucx insignif. Est Cr Cl 21 c/w CRF4. -abd US neg for hydro, cirrhosis. Suspect volume issues due to HTN/diabetic nephropathy. -reviewed telemetry personally, no events. Monitoring strict I/O. Goal net neg 1/2-1L/day. Weight down 6kg/admit. - renal consulted regarding volume management, possible group home dialysis planning, expedite OP f/u. Serologies and urine studies ordered. ED neg, compliments neg, cryoglobulin pending, ANCA pending, HIV neg. Continued -Added metolazone 2.5mg/daily per renal 09/13- with improving swelling, Cr bump to 2.33 so held further -Anticipate likely transition to PO agents prior to DC (?09/17) with ongoing clinical improvement. Goal weight 155lbs -Home [place] family at [place], information technology security manager consulted to review salt restrictions. Assessment & Plan (09/15/2021 3:38 PM CDT): Due to progressive CRF4. Presents with increasing swelling, 6lb weight gain, daughter voicing concerns of exertional dyspnea/orthopnea as well. Last echo in 2019 grossly normal, per cards note had recent one with G1ddf. No ischemic hx or diuretic use. Has 1+ pitting edema in BL LE, no pulmonary edema on CXR, BNP 500. Renal function improved after 20 IV lasix on day of admission but held 9?) & further worsened with diuretics. Patient appears grossly volume overloaded. resumed diuretics lasix 40mg IV Q12 & tolerated. -Repeat TTE with normal LV/RV function. -UA 2+prot, Ucx insignif. Est Cr Cl 21 c/w CRF4. -abd US neg for hydro, cirrhosis. Suspect volume issues due to HTN/diabetic nephropathy. -reviewed telemetry personally, no events. Monitoring strict I/O. Goal net neg 1/2-1L/day. Weight down 5-6kg/admit. Rpt weight pending - renal consulted regarding volume management, possible group home dialysis planning, expedite OP f/u. Serologies and urine studies ordered. -Added metolazone 2.5mg/daily per renal. -Anticipate likely transition to PO agents prior to DC with ongoing clinical improvement. Goal weight 145-150lbs -Home with family at [place], information technology security manager consulted to review salt restrictions. Assessment & Plan (09/14/2021 12:20 PM CDT): Due to progressive CRF4. Presents with increasing swelling, 6lb weight gain, daughter voicing concerns of exertional dyspnea/orthopnea as well. Last echo in 2019 grossly normal, per cards note had recent one with G1ddf. No ischemic hx or diuretic use. Has 1+ pitting edema in BL LE, no pulmonary edema on CXR, BNP 500. Renal function improved after 20 IV lasix on day of admission but held 9?) & further worsened with diuretics. Patient appears grossly volume overloaded. resumed diuretics lasix 40mg IV Q12 & tolerated. -Repeat TTE with normal LV/RV function. -UA 2+prot, Ucx insignif. Est Cr Cl 21 c/w CRF4. -abd US neg for hydro, cirrhosis. Suspect volume issues due to HTN/diabetic nephropathy. - telemetry, strict I/O. Goal net neg 1/2-1L/day. Weight down 6kg/admit. - renal consulted regarding volume management, possible group home dialysis planning, expedite OP f/u. Serologies and urine studies ordered. -Added metolazone 2.5mg/daily per renal. -Anticipate likely transition to PO agents prior to DC with ongoing clinical improvement. Goal weight 145-150lbs Assessment & Plan (09/13/2021 3:51 PM CDT): Due to progressive CRF4. Presents with increasing swelling, 6lb weight gain, daughter voicing concerns of exertional dyspnea/orthopnea as well. Last echo in 2019 grossly normal, per cards note had recent one with G1ddf. No ischemic hx or diuretic use. Has 1+ pitting edema in BL LE, no pulmonary edema on CXR, BNP 500. Renal function improved after 20 IV lasix on day of admission but held 9?) & further worsened with diuretics. Patient appears grossly volume overloaded. resumed diuretics lasix 40mg IV Q12 & tolerated -Repeat TTE with normal LV/RV function. -UA 2+prot, Ucx insignif. Est Cr Cl 21 c/w CRF4. -abd US neg for hydro, cirrhosis. Suspect volume issues due to HTN/diabetic nephropathy. - telemetry, strict I/O. Goal net neg 1/2-1L/day. Weight down 5kg/admit. - renal consulted regarding volume management, possible group home dialysis planning, expedite OP f/u. Serologies and urine studies ordered. -Added metolazone 2.5mg per renal. -Anticipate likely transition to PO agents later today with clinical improvement. Assessment & Plan (09/12/2021 3:37 PM CDT): Due to progressive CRF4. Presents with increasing swelling, 6lb weight gain, daughter voicing concerns of exertional dyspnea/orthopnea as well. Last echo in 2019 grossly normal, per cards note had recent one with G1ddf. No ischemic hx or diuretic use. Has 1+ pitting edema in BL LE, no pulmonary edema on CXR, BNP 500. Renal function improved after 20 IV lasix on day of admission but has since further worsened with diuretics. Patient appears grossly volume overloaded. resumed diuretics & toelrated -Repeat TTE with normal LV/RV function. -UA 2+prot, Ucx insignif. Est Cr Cl 21 c/w CRF4. -abd US neg for hydro, cirrhosis. Suspect volume issues due to HTN/diabetic nephropathy. - telemetry, strict I/O. Goal net neg 1/2-1L/day. - renal consulted regarding volume management, possible long term care administrator dialysis planning, expedite OP f/u. Assessment & Plan (09/11/2021 2:48 PM CDT): Due to progressive CRF4. Presents with increasing swelling, 6lb weight gain, daughter voicing concerns of exertional dyspnea/orthopnea as well. Last echo in 2019 grossly normal, per cards note had recent one with G1ddf. No ischemic hx or diuretic use. Has 1+ pitting edema in BL LE, no pulmonary edema on CXR, BNP 500. Renal function improved after 20 IV lasix on day of admission but has since further worsened with diuretics. Patient appears grossly volume overloaded. resumed diuretics & toelrated -Repeat TTE with normal LV/RV function. -UA 2+prot, Ucx insignif. Est Cr Cl 21 c/w CRF4. -abd US neg for hydro, cirrhosis. Suspect volume issues due to HTN/diabetic nephropathy. - telemetry, strict I/O. Goal net neg 1/2-1L/day. -consider renal consult regarding long term care administrator dialysis planning, expedite OP f/u. Assessment & Plan (09/10/2021 3:15 PM CDT): Presents with increasing swelling, 6lb weight gain, daughter voicing concerns of exertional dyspnea/orthopnea as well. Last echo in 2019 grossly normal, per cards note had recent one with G1ddf. No ischemic hx or diuretic use. Has 1+ pitting edema in BL LE, no pulmonary edema on CXR, BNP 500. Renal function improved after 20 IV lasix on day of admission but has since further worsened with diuretics. Patient appears grossly volume overloaded. resume diuretics -Repeat TTE with normal LV/RV function. -UA 2+prot, Ucx insignif. Est Cr Cl 21 c/w CRF4. -check abd US eval for hydro, cirrhosis. Suspect volume issues due to HTN/diabetic nephropathy. - telemetry, strict I/O. Goal net neg 1/2-1L/day. -consider renal consult regarding long term care administrator dialysis planning. Assessment & Plan (09/06/2021 10:28 PM CDT): Pt with increasing swelling, 6lb weight gain, daughter voicing concerns of exertional dyspnea/orthopnea as well. Last echo in 2019 grossly normal, per cards note had recent one with G1ddf. No ischemic hx or diuretic use. Exam consistent with some mild overload currently PLAN - repeat echo - s/p lasix IV 20, will ctm but likely will need at least 40 IV BID to see reasonable effect but will watch creatinine closely - telemetry, strict I/O Retention of urine, unspecified 08/22/2021 Unspecified osteoarthritis, unspecified site 08/2021 Unsteadiness on feet 08/22/2021 Weakness 08/22/2021 Late onset Alzheimer's demen tia without behavioral disturbance 08/19/2021 Assessment & Plan (01/05/2024 10:40 PM CDT): Follows with neurology. -continue risperidone 2mg QHS -continue benztropine 2mg daily Assessment & Plan (11/10/2023 4:37 PM CDT): Following with neurology Assessment & Plan (07/24/2023 1:50 PM RECREATION THERAPY AIDE): Following with neurology Assessment & Plan (01/23/2023 9:18 AM CDT): Following with neurology Assessment & Plan (10/10/2022 10:37 AM CDT): Following with neurology, ordered MRI, # given to son to schedule Assessment & Plan (06/09/2022 3:37 PM RECREATION THERAPY AIDE): Needs to reschedule with neurology Looking into half-way, but declined for [facility] for schizoaffective disorder Assessment & Plan (01/14/2022 9:05 AM CDT): Following with psychiatry Assessment & Plan (09/03/2021 3:28 PM CDT): Chronic, stable. Alert, oriented to self, current place. Continue to monitor. Clock drawing test at next interval. Consideration for Aricept. Encounter for Medicare annual wellness exam 12/21 Assessment & Plan (11/10/2023 4:42 PM CDT): Reviewed PMH & PHQ Screening PHQ-2 Total Score (If total score is 3 or more points, staff should administer the PHQ-9): 2 Hearing/vision screening reviewed, referrals placed as needed Fall risk reviewed Reviewed medications and supplements Specialists: endocrine, nephrology, cardiology, neurology, psychiatry evidence of cognitive impairment HCM: orders placed as needed Assessment & Plan (06/09/2022 3:37 PM RECREATION THERAPY AIDE): Reviewed PMH & PHQ Screening PHQ-2 Total Score (If total score is 3 or more points, staff should administer the PHQ-9): 0 Hearing/vision screening reviewed, referrals placed as needed Fall risk reviewed Reviewed medications and supplements Specialists: endocrine, nephrology, cardiology, neurology evidence of cognitive impairment HCM: orders placed as needed Assessment & Plan (01/08/2021 3:44 PM CDT): Reviewed PMH & PHQ Screening PHQ-2 Total Score (If total score is 3 or more points, staff should administer the PHQ-9): 0 Hearing/vision screening: not indicated Fall risk : reviewed Reviewed medications and supplements Specialists: cardiology, reviewed note; psychiatry, reviewed notes Evidence of cognitive impairment 2/2 schizophrenia, follows with psych HCM: dexa and mammogram today, microalbumin not indicated as on feliciano, foot & eye exam UTD, labs UTD, colonoscopy UTD Schizoaffective disorder, bipolar type ([facility]) 10/10/2020 Assessment & Plan (03/16/2024 3:52 PM CDT): Chronic, persistent, functioning slightly below baseline at this time. Does not report any stephanie or psychosis. Medical hospitalization-reviewed. Daughter provides collateral information. Depressive symptoms are partially well controlled on current medication regimen. The patient reports tolerance for medication regimen without any notable side effects. The patient does not endorse any active suicidal ideation. The following changes were made at today's appointment: Increase Risperdal from 1 mg to 1.5 mg HS. May need to titrate up to 2 mg. Will continue to monitor treatment and re-evaluate at next interval as discussed. Assessment & Plan (12/20/2023 7:33 PM CDT): Chronic, persistent, functioning slightly below baseline at this time. Does not report any stephanie or psychosis. Medical hospitalization-reviewed. Daughter provides collateral information. Depressive symptoms are partially well controlled on current medication regimen. The patient reports tolerance for medication regimen without any notable side effects. The patient does not endorse any active suicidal ideation. The following changes were made at today's appointment: Increase Risperdal from 1 mg to 1.5 mg HS. May need to titrate up to 2 mg. Will continue to monitor treatment and re-evaluate at next interval as discussed. Assessment & Plan (11/10/2023 4:38 PM CDT): Following with psychiatry Assessment & Plan (07/24/2023 1:50 PM RECREATION THERAPY AIDE): Following with psychiatry Assessment & Plan (01/23/2023 9:19 AM CDT): Following with psychiatry Assessment & Plan (10/10/2022 10:41 AM CDT): Following with psychiatry On risperidone Assessment & Plan (04/02/2022 6:06 AM CDT): Following with psychiatry, on risperdal Assessment & Plan (11/25/2021 2:05 PM CDT): Chronic, continue Risperdal, stable mood. Assessment & Plan (11/24/2021 2:07 PM CDT): Continue Risperdal, stable mood. Assessment & Plan (11/23/2021 12:24 PM CDT): Continue Risperdal, stable mood. Assessment & Plan (11/22/2021 1:34 PM CDT): Continue risperidal Assessment & Plan (11/21/2021 12:13 PM CDT): Continue risperidal Assessment & Plan (11/20/2021 3:13 PM CDT): Continue risperidal Assessment & Plan (11/19/2021 12:28 PM CDT): Continue risperidal Assessment & Plan (11/18/2021 11:30 AM CDT): Continue risperidal Assessment & Plan (11/17/2021 6:32 PM CDT): Continue risperidal Assessment & Plan (11/15/2021 8:17 AM CDT): Continue risperidal Assessment & Plan (09/03/2021 3:29 PM CDT): Chronic, persistent, but functioning at or close to baseline at this time. Does not report any stephanie or psychosis. Depressive symptoms are reasonably well controlled on current medication regimen. The patient reports tolerance for medication regimen without any notable side effects. The patient does not endorse any active suicidal ideation. The following changes were made at today's appointment: None. Will continue to monitor treatment and re-evaluate at next interval as discussed. Assessment & Plan (08/09/2021 5:42 AM RECREATION THERAPY AIDE): Following with psychiatry Assessment & Plan (08/07/2021 3:28 PM RECREATION THERAPY AIDE): Chronic condition, switch to Haldol and has had multiple different problems including acute kidney failure in infectious process. Records not available at outside hospital[facility]. Confounded by delirium. Currently experiencing delirium will discontinue Haldol and return to Risperdal as previously taking. Risperdal was discontinued due to poorly-controlled diabetes. Monitor in 1 to 2 weeks. Assessment & Plan (07/03/2021 7:24 AM RECREATION THERAPY AIDE): Following with psychiatry D/c risperidone, started on haldol Assessment & Plan (07/01/2021 9:16 PM RECREATION THERAPY AIDE): Chronic, stable. +persistent auditory hallucinations Discontinue Risperdal in lieu of Haldol 5 mg HS. Poorly-controlled diabetes with neuropathy. Monitor at interval.. Continue to monitor at interval. Assessment & Plan (01/08/2021 3:49 PM CDT): Follow up with psychiatry, continue risperidone per their recs Assessment & Plan (10/16/2020 3:48 PM CDT): Following with psychiatry, reviewed notes Assessment & Plan (10/10/2020 11:49 AM CDT): Chronic condition, has not been treated for 2 years. Observed to be talking to herself. Agitation at times. Historical diagnosis is of schizophrenia or schizoaffective disorder. Careful to use Risperdal with uncontrolled diabetes-but will start on low dose and titrate up for effectiveness. Daughter advised on monitoring. Patient has significant indiscretion with respect to diet when the daughter is at work. Daughter manages health for the patient. She is linked her to numerous appointments lately. 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 The patient previously lived on her own and was observed to be hoarding. See additional problems-dementia. Evaluate again in 1 month after starting Risperdal. Mixed hyperlipidemia 04/03/2020 Assessment & Plan (11/10/2023 4:37 PM CDT): Continue statin Assessment & Plan (07/24/2023 1:49 PM RECREATION THERAPY AIDE): Continue statin Assessment & Plan (01/23/2023 9:18 AM CDT): Continue statin Assessment & Plan (10/10/2022 10:47 AM CDT): Continue statin Assessment & Plan (08/14/2022 10:43 AM RECREATION THERAPY AIDE): Continue statin Assessment & Plan (06/09/2022 3:33 PM RECREATION THERAPY AIDE): Continue statin & 81mg ASA Assessment & Plan (04/02/2022 6:05 AM CDT): Continue statin Assessment & Plan (01/14/2022 9:03 AM CDT): Continue statin Assessment & Plan (11/25/2021 2:05 PM CDT): Continue statin Assessment & Plan (11/24/2021 2:06 PM CDT): Continue statin Assessment & Plan (11/23/2021 12:23 PM CDT): Continue statin Assessment & Plan (11/22/2021 1:34 PM CDT): Continue statin Assessment & Plan (11/21/2021 12:13 PM CDT): Continue statin Assessment & Plan (11/20/2021 3:13 PM CDT): Continue statin Assessment & Plan (11/19/2021 12:27 PM CDT): Continue statin Assessment & Plan (11/18/2021 11:29 AM CDT): Continue statin Assessment & Plan (11/17/2021 6:31 PM CDT): Continue statin Assessment & Plan (11/15/2021 8:12 AM CDT): Continue statin Assessment & Plan (10/07/2021 3:53 PM CDT): Lipitor Assessment & Plan (10/07/2021 9:39 AM CDT): Continue statin Assessment & Plan (08/05/2021 10:36 AM RECREATION THERAPY AIDE): Continue 40mg atorvastatin Assessment & Plan (10/02/2020 4:34 PM CDT): Uncontrolled, cardiology increased atorvastatin to 40mg, advised to take two 20mg tablets until runs out Assessment & Plan (08/28/2020 12:12 PM RECREATION THERAPY AIDE): On atorvastatin Assessment & Plan (07/24/2020 2:06 PM RECREATION THERAPY AIDE): Stressed importance of taking atorvastatin Assessment & Plan (04/30/2020 1:00 PM RECREATION THERAPY AIDE): On atorvastatin 20mg Iron deficiency anemia 04/02/2020 Assessment & Plan (05/06/2024 7:51 AM RECREATION THERAPY AIDE): Recommend discussing IV iron with nephrology Assessment & Plan (10/02/2020 4:35 PM CDT): Continue iron Assessment & Plan (05/28/2020 1:51 PM RECREATION THERAPY AIDE): Iron levels recently normalized, but still anemic, repeat today Assessment & Plan (04/16/2020 11:45 AM CDT): Recent iron within normal limits, H/H improving, continue supplementation until normalized Gastroesophageal reflux disease without esophagi tis 04/02/2020 Assessment & Plan (01/05/2024 10:40 PM CDT): -continue famotidine Assessment & Plan (10/02/2020 4:35 PM CDT): Continue omeprazole Assessment & Plan (07/24/2020 2:06 PM RECREATION THERAPY AIDE): Recurrent symptoms off omeprazole, restart Assessment & Plan (05/28/2020 1:51 PM RECREATION THERAPY AIDE): Iron levels recently normalized, but still anemic, repeat today Assessment & Plan (04/02/2020 1:26 PM CDT): Start PPI History of amputation of toe ([facility]) 0 Assessment & Plan (01/08/2021 3:50 PM CDT): Stable Assessment & Plan (10/02/2020 4:35 PM CDT): Stable Assessment & Plan (04/30/2020 1:00 PM RECREATION THERAPY AIDE): Stable Assessment & Plan (02/14/2020 5:15 PM CDT): Healing well Following with surgeon/wound clinic Assessment & Plan (01/19/2020 5:17 PM CDT): Has home health Following with vascular Primary hypertension 12/13/2019 Assessment & Plan (05/06/2024 7:48 AM RECREATION THERAPY AIDE): BP controlled Continue nifedipine, hold prior to dialysis Assessment & Plan (01/11/2024 4:05 PM CDT): Systolic BP uncontrolled Stressed importance of picking up nifedipine with patient's daughter Areli Continue hydralazine 50mg three times a day and coreg twice a day on non dialysis days and once a day after dialysis Assessment & Plan (01/05/2024 10:45 PM CDT): Patient with uncontrolled hypertension in ED. Patient has issues with labile BP with hypertension on non-HD days and episodes of hypotension and syncopal episode x1 with HD. Most recent admission at [facility] with initiation of hydralazine and nifedipine in addition to existing carvedilol with modest improvement in BP control as outpatient though some frustration by patient and family regarding protocol of holding antihypertensives on HD days causing elevated readings at home. Currently patient asymptomatic. -restart home nifedipine XR 60 mg, hydralazine 25 mg TID, carvedilol 3.125 mg BID -can uptitrate carvedilol/hydralazine as tolerated during admission Assessment & Plan (01/01/2024 4:51 PM CDT): BP currently well controlled Assessment & Plan (11/10/2023 4:37 PM CDT): BP controlled Continue 5mg amlodipine Assessment & Plan (08/03/2023 4:02 PM RECREATION THERAPY AIDE): BP uncontrolled Start 5mg amlodipine Assessment & Plan (07/24/2023 1:49 PM RECREATION THERAPY AIDE): Blood pressure borderline today off medications Assessment & Plan (01/23/2023 9:18 AM CDT): Blood pressure borderline low today, asymptomatic Checking labs Advised to decrease amlodipine to 5mg and monitor blood pressure Assessment & Plan (10/10/2022 10:50 AM CDT): Continue coreg 6.25mg twice a day & 40mg valsartan Assessment & Plan (08/14/2022 10:43 AM RECREATION THERAPY AIDE): Blood pressure at goal, continue coreg 6.25mg twice a day Assessment & Plan (06/09/2022 3:32 PM RECREATION THERAPY AIDE): Blood pressure at goal, continue coreg 3.125mg twice a day & valsartan 40mg Assessment & Plan (04/02/2022 6:04 AM CDT): Blood pressure at goal, continue coreg 3.125mg twice a day & valsartan 40mg, encouraged to recheck labs per nephro Assessment & Plan (01/14/2022 9:03 AM CDT): Blood pressure at goal, continue coreg 3.125mg twice a day Assessment & Plan (10/07/2021 3:53 PM CDT): Coreg Assessment & Plan (10/07/2021 9:38 AM CDT): Blood pressure at goal, continue coreg 3.125mg twice a day Assessment & Plan (09/30/2021 6:21 AM CDT): Blood pressure at goal, continue coreg 3.125mg twice a day Assessment & Plan (08/05/2021 10:35 AM RECREATION THERAPY AIDE): Blood pressure at goal Increase amlodipine to 10mg & d/c hydralazine per cardiology Assessment & Plan (05/28/2021 4:59 PM RECREATION THERAPY AIDE): Blood pressure above goal, but previously within normal limits Continue 25mg hydrochlorothiazide & 20mg lisinopril If remains elevated will need to adjust medications Assessment & Plan (03/07/2021 4:44 PM CDT): Blood pressure at goal Continue hydrochlorothiazide 25mg Continue 10mg lisinopril Assessment & Plan (02/22/2021 6:33 AM CDT): Blood pressure above goal Increase hydrochlorothiazide to 25mg Continue 10mg lisinopril Assessment & Plan (02/07/2021 5:35 PM CDT): Blood pressure above goal Add hydrochlorothiazide to 10mg lisinopril given peripheral edema Assessment & Plan (10/02/2020 4:34 PM CDT): Controlled Continue 10mg lisinopril Assessment & Plan (08/28/2020 12:12 PM RECREATION THERAPY AIDE): Blood pressure at goal Continue lisinopril Assessment & Plan (07/24/2020 2:05 PM RECREATION THERAPY AIDE): Blood pressure at goal Continue lisinopril Assessment & Plan (05/28/2020 1:50 PM RECREATION THERAPY AIDE): BP borderline Continue 10mg lisinopril Continue to monitor Assessment & Plan (04/30/2020 12:32 PM RECREATION THERAPY AIDE): BP borderline Continue 10mg lisinopril Continue to monitor Assessment & Plan (04/16/2020 11:44 AM CDT): BP above goal, but patient didn't take her medications this AM Continue to monitor Assessment & Plan (04/02/2020 1:23 PM CDT): BP at goal Continue 10mg lisinopril Assessment & Plan (02/14/2020 5:15 PM CDT): BP 128/72 today, at goal Continue 10mg lisinopril Assessment & Plan (12/26/2019 11:38 AM CDT): Impression: Stable hypertension. Plan: Continue current antihypertensive regimen as directed by PCP. Assessment & Plan (12/13/2019 1:08 PM CDT): BP 158/70 today, previously 156/73 Will start 10mg lisinopril Follow up 2 weeks for recheck Type 2 diabetes mellitus wit h diabetic neuropathy, with long-term current use of insulin 08/30/2019 Assessment & Plan (01/05/2024 10:39 PM CDT): History of DM2 on insulin therapy. Patient reportedly with good BG control as outpatient per daughter with readings 120-150 mg/dl. BG elevated in ED as patient did not take any meds including insulin prior to presentation. -dose reduce to glargine 10 units QHS, lispro 3 units TIDAC + LDSSI -consistent carbohydrate diet Assessment & Plan (01/01/2024 4:52 PM CDT): Has been having hypoglycemia with recent decreased intake Given handout on how to manage hypoglycemia to patient/granddaughter Recommend cutting insulin in half if running low/not eating normally Assessment & Plan (11/12/2023 1:04 PM CDT): Lab Results Component Value Date HGBA1C 8.2 (H) 10/08/2023 uncontrolled Following with endocrine, upcoming appointment continue 15 units lantus & humalog 4 units TIDAC +SSI Assessment & Plan (07/24/2023 1:49 PM RECREATION THERAPY AIDE): Lab Results Component Value Date HGBA1C 8.1 06/30/2023 Following with endocrine Continue lantus, 12 units humalog TIDAC Assessment & Plan (01/23/2023 8:51 AM CDT): Lab Results Component Value Date HGBA1C 7.1 (H) 11/30/2022 Following with endocrine Continue lantus, 12 units humalog TIDAC & 1.5mg trulicity Assessment & Plan (10/10/2022 10:35 AM CDT): Following with endocrine Continue lantus, 12 units humalog TIDAC & 1.5mg trulicity Assessment & Plan (08/14/2022 10:42 AM RECREATION THERAPY AIDE): Following with endocrine Continue lantus, 12 units humalog TIDAC & 1.5mg trulicity Assessment & Plan (06/09/2022 3:32 PM RECREATION THERAPY AIDE): Following with endocrine Home blood sugar at goal Continue 34 units lantus, 12 units humalog TIDAC & 1.5mg trulicity Hypoglycemia precautions discussed Assessment & Plan (04/02/2022 6:03 AM CDT): Following with endocrine, encouraged daughter to download monitor with them so medications can be adjusted Assessment & Plan (01/14/2022 9:29 AM CDT): Following with endocrine, reviewed note Continue 30 units lantus, 10 units humalog with meals +SS & trulicity 0.75mg Madhav continuous glucose monitor changed in office today Assessment & Plan (11/25/2021 2:04 PM CDT): Home regimen includes lantus 25 units + Humalog 8 units with meals + SSI, trulicity. BG WNL on arrival. - Cut down lantus to 23 units with + 6 units mealtime + SSI, adjust as needed. Mostly under control. - Continue lyrica for neuropathy - HbA1C 8.2 Assessment & Plan (11/24/2021 2:06 PM CDT): Home regimen includes lantus 25 units + Humalog 8 units with meals + SSI, trulicity. BG WNL on arrival. - Cut down lantus to 23 units with + 6 units mealtime + SSI, adjust as needed. - Continue lyrica for neuropathy - HbA1C 8.2 Assessment & Plan (11/23/2021 12:23 PM CDT): Home regimen includes lantus 25 units + Humalog 8 units with meals + SSI, trulicity. BG WNL on arrival. - Cut down lantus to 23 units with + 6 units mealtime + SSI, adjust as needed. - Continue lyrica for neuropathy - HbA1C 8.2 Assessment & Plan (11/22/2021 1:34 PM CDT): Home regimen includes lantus 25 units + Humalog 8 units with meals + SSI, trulicity. BG WNL on arrival. - Cut down lantus to 23 units with + 6 units mealtime + SSI, adjust as needed. - Continue lyrica for neuropathy - HbA1C 8.2 Assessment & Plan (11/21/2021 12:13 PM CDT): Home regimen includes lantus 25 units + Humalog 8 units with meals + SSI, trulicity. BG WNL on arrival. - Cut down lantus to 23 units with + 6 units mealtime + SSI, adjust as needed. - Continue lyrica for neuropathy - HbA1C 8.2 Assessment & Plan (11/20/2021 3:13 PM CDT): Home regimen includes lantus 25 units + Humalog 8 units with meals + SSI, trulicity. BG WNL on arrival. - Cut down lantus to 23 units with + 6 units mealtime + SSI, adjust as needed. - Continue lyrica for neuropathy - HbA1C 8.2 Assessment & Plan (11/19/2021 12:27 PM CDT): Home regimen includes lantus 25 units + Humalog 8 units with meals + SSI, trulicity. BG WNL on arrival. - Cut down lantus to 23 units with + 6 units mealtime + SSI, adjust as needed. - Continue lyrica for neuropathy - HbA1C 8.2 Assessment & Plan (11/18/2021 11:29 AM CDT): Home regimen includes lantus 25 units + Humalog 8 units with meals + SSI, trulicity. BG WNL on arrival. - Cut down lantus to 23 units with + 6 units mealtime + SSI, adjust as needed. - Continue lyrica for neuropathy - HbA1C 8.2 Assessment & Plan (11/17/2021 6:30 PM CDT): Home regimen includes lantus 25 units + Humalog 8 units with meals + SSI, trulicity. BG WNL on arrival. - Cut down lantus to 20 units with + 4 units mealtime + SSI, adjust as needed. - Continue lyrica for neuropathy - HbA1C 8.2 Assessment & Plan (11/16/2021 5:37 PM CDT): Home regimen includes lantus 25 units + Humalog 8 units with meals + SSI, trulicity. BG WNL on arrival. - Cut down lantus to 20 units with + 4 units mealtime + SSI, adjust as needed. - Continue lyrica for neuropathy - HbA1C 8.2 Assessment & Plan (10/07/2021 3:52 PM CDT): Insulin Assessment & Plan (10/07/2021 9:36 AM CDT): Following with endocrine, reviewed note Continue 25 units lantus nightly Continue humalog 8 units TIDAC + SSI Continue checking 4 times/day to help adjust insulin and ensure adequately treated Assessment & Plan (09/30/2021 6:18 AM CDT): Continue 25 units lantus nightly, 8 units humalog TIDAC and trulcity Following with endocrine, upcoming appointment Assessment & Plan (09/17/2021 10:17 AM CDT): Home regimen lantus 18, lispro 5 TID AC + SSI, had recently had trulicity held due to renal function. Follows with endocrinology outpatient. A1c 8.4. Requiring multiple units of SSI daily. Continue home statin. Increased glargine from 24=>25 units qPM this admit, lispro to 8units TID, continue SSI and ADA diet. BG 155-221. Diabetes complicated by diabetic neuropathy and nephropathy. Need for strict med oversight by family at [place] reviewed with daughter this admit. Assessment & Plan (09/16/2021 3:53 PM CDT): Home regimen lantus 18, lispro 5 TID AC + SSI, had recently had trulicity held due to renal function. Follows with endocrinology outpatient. A1c 8.4. Requiring multiple units of SSI daily. Continue home statin. Increased glargine from 24=>25 units qPM this admit, lispro to 8units TID, continue SSI and ADA diet. BG 155-221. Diabetes complicated by diabetic neuropathy and nephropathy. Need for strict med oversight by family at [place] reviewed with daughter this admit. Assessment & Plan (09/15/2021 3:41 PM CDT): Home regimen lantus 18, lispro 5 TID AC + SSI, had recently had trulicity held due to renal function. Follows with endocrinology outpatient. A1c 8.4. Requiring multiple units of SSI daily. Continue home statin -Increased glargine to 24=>25 units qPM this admit, lispro to 8units TID, continue SSI and ADA diet. BG 155-221. Complicated by diabetic neuropathy and nephropathy. Med oversight by family at [place]. Assessment & Plan (09/14/2021 12:22 PM CDT): Home regimen lantus 18, lispro 5 TID AC + SSI, had recently had trulicity held due to renal function. Follows with endocrinology outpatient. A1c 8.4. Requiring multiple units of SSI daily. Continue home statin -Increased glargine to 24=>25 units qPM this admit, lispro to 8units TID, continue SSI and ADA diet. Complicated by diabetic neuropathy and nephropathy. Assessment & Plan (09/13/2021 4:12 PM CDT): Home regimen lantus 18, lispro 5 TID AC + SSI, had recently had trulicity held due to renal function. Follows with endocrinology outpatient. A1c 8.4. Requiring multiple units of SSI daily. -Continue home statin -Increased glargine to 24=>25 units qPM, lispro to 8units TID, continue SSI and ADA diet. Complicated by diabetic neuropathy and nephropathy. Assessment & Plan (09/12/2021 3:41 PM CDT): Home regimen lantus 18, lispro 5 TID AC + SSI, had recently had trulicity held due to renal function. Follows with endocrinology outpatient. A1c 8.4. Requiring multiple units of SSI daily. -Continue home statin -Increased glargine to 24=>25 units qPM, lispro to 8units TID, continue SSI and ADA diet. Complicated by diabetic neuropathy and nephropathy. Assessment & Plan (09/11/2021 2:54 PM CDT): Home regimen lantus 18, lispro 5 TID AC + SSI, had recently had trulicity held due to renal function. Follows with endocrinology outpatient. A1c 8.4. Requiring multiple units of SSI daily. -Continue home statin -Increased glargine to 24=>25 units qPM, lispro to 8units TID, continue SSI and ADA diet. Complicated by diabetic neuropathy and nephropathy. Assessment & Plan (09/10/2021 3:22 PM CDT): Home regimen lantus 18, lispro 5 TID AC + SSI, had recently had trulicity held due to renal function. Follows with endocrinology outpatient. A1c 8.4. Requiring multiple units of SSI daily. -Continue home statin -Increased glargine to 24 units qPM, lispro to 8units TID, continue SSI Complicated by diabetic neuropathy and nephropathy. Assessment & Plan (09/06/2021 10:26 PM CDT): Home regimen most recnetly ast lantus 18, lispro 5 TID AC + SSI, had recently had trulicity held. Follows with endocrinology outpatient - sugars poorly controlled in past, has had R toe amputation previously - 247 on admission here, will resume home regimen as above and ctm. Daughter requesting endo consult as she had discussed this with outpatient order takers supervisor - repeat A1c - resume home statin, not currently on feliciano due to kidney function Assessment & Plan (08/05/2021 10:35 AM RECREATION THERAPY AIDE): Continue 15 units lantus twice a day Assessment & Plan (07/03/2021 7:24 AM RECREATION THERAPY AIDE): Fasting blood sugar significantly improved Risperidone changed Continue current meds Continue to monitor Assessment & Plan (06/18/2021 11:22 AM RECREATION THERAPY AIDE): Increase lantus to 60 units nightly, if blood sugar still above goal after 1 week split into 33 units twice a day Follow up with blood sugar via portal in 2 weeks Continue jardiance 25mg Continue trulicity 4.5mg weekly Assessment & Plan (05/28/2021 4:58 PM RECREATION THERAPY AIDE): Increase lantus to 55 units nightly Continue jardiance 25mg Continue trulicity 4.5mg weekly Assessment & Plan (04/06/2021 1:13 PM CDT): Continue jardiance 25mg, daughter will help monitor to ensure taking daily, if fasting blood sugar not at goal increase lantus to 52 units Continue trulicity 4.5mg weekly Assessment & Plan (03/07/2021 4:44 PM CDT): Continue jardiance 25mg Increase lantus to 50 units Continue trulicity 4.5mg weekly Assessment & Plan (02/22/2021 6:44 AM CDT): Lab Results Component Value Date HGBA1C 8.4 (H) 02/07/2021 Continue jardiance 25mg Continue lantus 47 units Continue trulicity 4.5mg weekly Assessment & Plan (02/08/2021 6:56 AM CDT): Lab Results Component Value Date HGBA1C 8.4 (H) 02/07/2021 Increase jardiance to 25mg Continue lantus 47 units Continue trulicity 4.5mg weekly Assessment & Plan (01/08/2021 3:45 PM CDT): Uncontrolled Continue jardiance 10mg Continue lantus to 47 units Increase trulicity to 4.5mg weekly Discussed hypoglycemia precautions Assessment & Plan (11/20/2020 11:54 AM CDT): Check A1c. Needs better management. Assessment & Plan (11/13/2020 4:16 PM CDT): Uncontrolled Blood sugar 197 today ~4h after eating. Will start jardiance for post prandial coverage Continue lantus to 47 units Continue trulicity 3mg weekly Discussed hypoglycemia precautions Assessment & Plan (10/16/2020 3:47 PM CDT): Uncontrolled BS improved, but given recent A1c >9 & has had at least one blood sugar >180 will increase lantus to 47 units Continue trulicity 3mg weekly Discussed hypoglycemia precautions Assessment & Plan (10/02/2020 4:33 PM CDT): Uncontrolled Lab Results Component Value Date HGBA1C 9.1 10/02/2020 Increase lantus to 45 units nightly Continue 3mg trulicity weekly Assessment & Plan (08/28/2020 1:00 PM RECREATION THERAPY AIDE): DM Care Plan: Meds: Lantus - continue 42 units Trulicity - increase to 3mg weekly Lisinopril - continue Statin - continue Eye Exam: yearly, [facility] from [facility] Foot Exam: due 04/02/2021 BP: At goal, on ACEi. Continue meds Smoking - none Influenza - this fall Pneumococcal - next age 65 A1C - Hgb A1C (%) Date Value 12/14/2019 11.6 (H) Hemoglobin A1c % (%) Date Value 07/24/2020 8.0 (H) 05/28/2020 8.5 (H) 04/02/2020 9.3 (H) Hemoglobin A1C, POC (no units) Date Value 08/28/2020 8.3 Lipids: On statin, checked yearly Urine Microalbumin - on ACEi - no recheck Assessment & Plan (07/24/2020 2:05 PM RECREATION THERAPY AIDE): Formulary change 2/2 insurance, switched to trulicity. Will increase to 1.5mg Assessment & Plan (05/28/2020 1:50 PM RECREATION THERAPY AIDE): Check a1c Barbara isn't checking blood sugar regularly, but when she is she has several >200 so I lean towards increasing if a1c>7 Assessment & Plan (04/30/2020 12:31 PM RECREATION THERAPY AIDE): Blood sugar improved on 40 units basaglar qhs, continue Again advised to schedule eye exam Assessment & Plan (04/16/2020 11:44 AM CDT): Blood sugar still uncontrolled Increase basaglar to 40 units qhs Again advised to schedule eye exam Assessment & Plan (04/02/2020 1:22 PM CDT): Stressed importance of increasing insulin to get blood sugar at goal (<140 fasting) A1c pending Assessment & Plan (02/14/2020 5:14 PM CDT): Increase insulin to 34 units Due for repeat a1c in 1 month Referral for eye exam Assessment & Plan (01/19/2020 5:16 PM CDT): Recommend increasing insulin to 32 units Discussed hypoglycemia precautions Assessment & Plan (12/13/2019 1:06 PM CDT): Patient did not increase basaglar after last appointment. Again stressed importance of increasing insulin as advised to get adequate blood sugar control. Recommend increasing basaglar to 27 units and increasing further by additional 3 units every 3 days until fasting blood glucose <140. Will follow up closely to ensure continues titrating, advised follow up next week Assessment & Plan (10/21/2019 11:00 AM CDT): Increase basaglar to 27 units nightly Continue 1.2mg victoza daily Follow up via phone or portal early next week for further insulin titration Assessment & Plan (09/08/2019 4:39 PM CDT): Increase victoza to 1.2mg daily Continue 24 units basaglar daily Assessment & Plan (08/30/2019 5:21 PM CDT): Just restarted victoza Continue basaglar 24 units daily, may need to increase if victoza not improving blood glucose Follow up 1 week for reassessment Wheezing Renal disorder Resolved Problems Problem Noted Date Diagnosed Date Resolved Date GI bleed 12/20/2022 11/10/2023 Assessment & Plan (01/23/2023 9:22 AM CDT): S/p recent hospitalization, reviewed d/c summary Checking cbc today STEFANO (acute kidney injury) 11/30/2022 Osteomyelitis of great toe o f right foot (CMS/HCC) 11/06/2022 11/10/2023 Assessment & Plan (01/23/2023 9:22 AM CDT): Completed antibiotics Checking cbc today Advised to follow up with podiatry Acute cystitis without hematuria 10/03/2022 10/10/2022 Altered mental status, unspe cified altered mental status type 10/02/2022 10/10/2022 Cough 11/15/2021 01/14/2022 Assessment & Plan (11/25/2021 2:06 PM CDT): Persistent cough which is actually getting worse per report but no cough noted when I was in the room. Recently treated at [facility] for PNA with prolonged course of antibiotics: cefepime + vancomycin + azithromycin per daughter. RSV/Flu/COVID negative. No wheezing on admit. Stable on RA. CXR with showed bibasilar atelectasis but no consolidations. - Chest CT: Mild smooth bronchial wall thickening in the lower lobes without consolidation, possibly reflecting bronchitis or sequela of aspiration. - RVP +Metapneumovirus - supportive care, resolved. Assessment & Plan (11/24/2021 2:07 PM CDT): Persistent cough which is actually getting worse per report but no cough noted when I was in the room. Recently treated at [facility] for PNA with prolonged course of antibiotics: cefepime + vancomycin + azithromycin per daughter. RSV/Flu/COVID negative. No wheezing on admit. Stable on RA. CXR with showed bibasilar atelectasis but no consolidations. - Chest CT: Mild smooth bronchial wall thickening in the lower lobes without consolidation, possibly reflecting bronchitis or sequela of aspiration. - RVP +Metapneumovirus - supportive care, resolved. Assessment & Plan (11/23/2021 12:24 PM CDT): Persistent cough which is actually getting worse per report but no cough noted when I was in the room. Recently treated at [facility] for PNA with prolonged course of antibiotics: cefepime + vancomycin + azithromycin per daughter. RSV/Flu/COVID negative. No wheezing on admit. Stable on RA. CXR with showed bibasilar atelectasis but no consolidations. - Chest CT: Mild smooth bronchial wall thickening in the lower lobes without consolidation, possibly reflecting bronchitis or sequela of aspiration. - RVP +Metapneumovirus - supportive care, improved. Assessment & Plan (11/22/2021 1:34 PM CDT): Persistent cough which is actually getting worse per report but no cough noted when I was in the room. Recently treated at [facility] for PNA with prolonged course of antibiotics: cefepime + vancomycin + azithromycin per daughter. RSV/Flu/COVID negative. No wheezing on admit. Stable on RA. CXR with showed bibasilar atelectasis but no consolidations. - Chest CT: Mild smooth bronchial wall thickening in the lower lobes without consolidation, possibly reflecting bronchitis or sequela of aspiration. - RVP +Metapneumovirus - supportive care, improved. Assessment & Plan (11/21/2021 12:13 PM CDT): Persistent cough which is actually getting worse per report but no cough noted when I was in the room. Recently treated at [facility] for PNA with prolonged course of antibiotics: cefepime + vancomycin + azithromycin per daughter. RSV/Flu/COVID negative. No wheezing on admit. Stable on RA. CXR with showed bibasilar atelectasis but no consolidations. - Chest CT: Mild smooth bronchial wall thickening in the lower lobes without consolidation, possibly reflecting bronchitis or sequela of aspiration. - RVP +Metapneumovirus - supportive care, improved. Assessment & Plan (11/20/2021 3:13 PM CDT): Persistent cough which is actually getting worse per report but no cough noted when I was in the room. Recently treated at [facility] for PNA with prolonged course of antibiotics: cefepime + vancomycin + azithromycin per daughter. RSV/Flu/COVID negative. No wheezing on admit. Stable on RA. CXR with showed bibasilar atelectasis but no consolidations. - Chest CT: Mild smooth bronchial wall thickening in the lower lobes without consolidation, possibly reflecting bronchitis or sequela of aspiration. - RVP +Metapneumovirus - supportive care, improved. Assessment & Plan (11/19/2021 12:28 PM CDT): Persistent cough which is actually getting worse per report but no cough noted when I was in the room. Recently treated at [facility] for PNA with prolonged course of antibiotics: cefepime + vancomycin + azithromycin per daughter. RSV/Flu/COVID negative. No wheezing on admit. Stable on RA. CXR with showed bibasilar atelectasis but no consolidations. - Chest CT: Mild smooth bronchial wall thickening in the lower lobes without consolidation, possibly reflecting bronchitis or sequela of aspiration. - RVP +Metapneumovirus - supportive care Assessment & Plan (11/18/2021 11:29 AM CDT): Persistent cough which is actually getting worse per report but no cough noted when I was in the room. Recently treated at [facility] for PNA with prolonged course of antibiotics: cefepime + vancomycin + azithromycin per daughter. RSV/Flu/COVID negative. No wheezing on admit. Stable on RA. CXR with showed bibasilar atelectasis but no consolidations. - Chest CT: Mild smooth bronchial wall thickening in the lower lobes without consolidation, possibly reflecting bronchitis or sequela of aspiration. - RVP +Metapneumovirus - supportive care Assessment & Plan (11/17/2021 6:30 PM CDT): Persistent cough which is actually getting worse per report but no cough noted when I was in the room. Recently treated at [facility] for PNA with prolonged course of antibiotics: cefepime + vancomycin + azithromycin per daughter. RSV/Flu/COVID negative. No wheezing on admit. Stable on RA. CXR with showed bibasilar atelectasis but no consolidations. - Chest CT: Mild smooth bronchial wall thickening in the lower lobes without consolidation, possibly reflecting bronchitis or sequela of aspiration. - RVP +Metapneumovirus - supportive care Assessment & Plan (11/16/2021 5:36 PM CDT): Persistent cough which is actually getting worse per report but no cough noted when I was in the room. Recently treated at [facility] for PNA with prolonged course of antibiotics: cefepime + vancomycin + azithromycin per daughter. RSV/Flu/COVID negative. No wheezing on admit. Stable on RA. CXR with showed bibasilar atelectasis but no consolidations. - Chest CT: Mild smooth bronchial wall thickening in the lower lobes without consolidation, possibly reflecting bronchitis or sequela of aspiration. - RVP +Metapneumovirus - supportive care Left leg DVT 11/15/2021 11/10/2023 Assessment & Plan (08/14/2022 10:44 AM RECREATION THERAPY AIDE): Continue eliquis Assessment & Plan (06/09/2022 3:36 PM RECREATION THERAPY AIDE): Continue eliquis Assessment & Plan (04/02/2022 6:05 AM CDT): Continue eliquis Assessment & Plan (01/14/2022 9:04 AM CDT): Continue eliquis Assessment & Plan (11/25/2021 2:06 PM CDT): Recently diagnosed at OSH. Continue eliquis -Check labs--6/7 AM. Assessment & Plan (11/24/2021 2:07 PM CDT): Recently diagnosed at OSH. Continue eliquis Assessment & Plan (11/23/2021 12:24 PM CDT): Recently diagnosed at OSH. Continue eliquis Assessment & Plan (11/22/2021 1:34 PM CDT): Recently diagnosed at OSH. Continue eliquis Assessment & Plan (11/21/2021 12:13 PM CDT): Recently diagnosed at OSH. Continue eliquis Assessment & Plan (11/20/2021 3:13 PM CDT): Recently diagnosed at OSH. Continue eliquis Assessment & Plan (11/19/2021 12:28 PM CDT): Recently diagnosed at OSH. Continue eliquis Assessment & Plan (11/18/2021 11:30 AM CDT): Recently diagnosed at OSH. Continue eliquis Assessment & Plan (11/17/2021 6:32 PM CDT): Recently diagnosed at OSH. Continue eliquis Assessment & Plan (11/15/2021 8:12 AM CDT): Recently diagnosed at OSH. Continue eliquis Delirium 08/07/2021 10/10/2022 Assessment & Plan (08/07/2021 3:30 PM RECREATION THERAPY AIDE): Subacute, persistent, hospitalized recently. She is alert and oriented to person and place. States that she believes it is 2019 and cannot identify the month. When told that recently it was Iqbal's Day to try to provide a prompt, she states that she thinks it Iqbal's Day is in August or July. Low threshold for having her go back to the hospital. Daughter to discuss further with primary care physician. See additional problems. Acute osteomyelitis of toe of right foot 11/04/2019 04/17/2020 Assessment & Plan (02/14/2020 5:14 PM CDT): Following with ID On doxycycline as PICC came out Assessment & Plan (01/19/2020 5:17 PM CDT): On IV vanc x6 weeks, daughter providing. FMLA paperwork filled out Assessment & Plan (11/04/2019 3:44 PM CDT): Impression: Patient recently had MRI performed at [facility] which revealed acute osteomyelitis to the distal phalanx of the right 1st toe and also associated with her right 4th toe. The ulcerations are stable in small in size. She has no significant erythema or drainage currently. She also denies any fevers or chills. Plan: Continue antibiotic therapy and attempt for salvage of her right 1st and 4th toe. Patient follow-up in 2 weeks for re-evaluation. The patient understands that she is at risk of toe amputations with worsening of her ulcerations. Ulcer of toe of right foot, with fat layer exposed 08/30/2019 08/28/2020 Assessment & Plan (05/28/2020 1:52 PM RECREATION THERAPY AIDE): Encouraged to follow up with wound clinic for reassessment Assessment & Plan (04/30/2020 12:31 PM RECREATION THERAPY AIDE): Following with wound clinic Assessment & Plan (04/17/2020 6:20 AM CDT): Following with wound clinic Assessment & Plan (04/02/2020 1:23 PM CDT): Now draining Advised to follow up with wound clinic/ID RA, patient has appointment tomorrow Assessment & Plan (12/26/2019 11:41 AM CDT): Impression: Worsening ulcerations of her right toes. Previous MRI performed in September revealed acute osteomyelitis of her right 1st toe. Initially her ulceration was clinically improving however over the past 1-2 weeks her right 1st toe ulceration and other interdigital ulcers have worsened with increased drainage, edema and erythema of her right foot. Patient and her daughter admits to being loosely compliant with local wound care. No systemic concern for infection currently. Plan: MRI right foot. Antibiotic therapy, local wound care. Patient follow-up in 1 week for discussion of MRI results and further treatment. Assessment & Plan (12/13/2019 1:07 PM CDT): Following with vascular Assessment & Plan (11/04/2019 3:46 PM CDT): Impression: Diabetic foot ulcer located to lateral aspect of her right 1st toe and to the interdigital space of her right 4th toe remains stable. Findings of acute osteomyelitis on recent MRI performed at [facility]. She is being treated with antibiotic therapy in attempts for salvage of her toes. Her ulcerations appear to be stable. She has a newly developed ulceration to the interdigital space of her right 2nd toe with associated erythema, no drainage. Plan: Continue antibiotic therapy and local wound care. Patient to follow-up in 2 weeks for re-evaluation. She is aware that she may require toe amputations if her ulcerations worsen. Assessment & Plan (10/21/2019 11:00 AM CDT): Following with Dr. Walsh On bactrim daily Assessment & Plan (09/08/2019 4:39 PM CDT): Following with vascular surgery Assessment & Plan (08/30/2019 5:20 PM CDT): Concern for osteomyelitis Urgent referral to vascular Diabetic neuropathy 05/16/20 24 Assessment & Plan (01/11/2024 4:08 PM CDT): Uncontrolled Patient's daughter requesting to restart gabapentin Assessment & Plan (11/10/2023 4:37 PM CDT): Off lyrica Assessment & Plan (01/23/2023 9:17 AM CDT): Off lyrica Assessment & Plan (10/10/2022 10:36 AM CDT): Continue lyrica 150mg nightly Assessment & Plan (08/14/2022 10:42 AM RECREATION THERAPY AIDE): Continue lyrica 150mg nightly Assessment & Plan (06/09/2022 3:32 PM RECREATION THERAPY AIDE): Continue lyrica 150mg nightly Assessment & Plan (04/02/2022 6:04 AM CDT): Continue lyrica 150mg nightly Assessment & Plan (01/14/2022 9:02 AM CDT): Continue lyrica 150mg nightly Assessment & Plan (10/07/2021 9:40 AM CDT): Continue lyrica 150mg nightly Assessment & Plan (09/17/2021 10:17 AM CDT): Ongoing symptoms. Previously on lyrica and Likely exacerbated by volume status. Monitor for response with diuresis, improved with less swelling. Assessment & Plan (09/16/2021 3:53 PM CDT): Ongoing symptoms. Previously on lyrica and Likely exacerbated by volume status. Monitor for response with diuresis, improved with less swelling. Assessment & Plan (09/15/2021 3:41 PM CDT): Ongoing symptoms. Previously on lyrica and Likely exacerbated by volume status. Monitor for response with diuresis, improved with less swelling. No longer acute issue. Assessment & Plan (09/14/2021 12:23 PM CDT): Ongoing symptoms. Previously on lyrica and Likely exacerbated by volume status. Monitor for response with diuresis, improved with less swelling. No longer acute issue. Assessment & Plan (09/13/2021 4:13 PM CDT): Ongoing symptoms. Previously on lyrica and Likely exacerbated by volume status. Monitor for response with diuresis, improved with less swelling. Assessment & Plan (09/12/2021 3:41 PM CDT): Ongoing symptoms. Previously on lyrica and Likely exacerbated by volume status. Monitor for response with diuresis, improved with less swelling. Assessment & Plan (09/11/2021 2:54 PM CDT): Ongoing symptoms. Previously on lyrica and Likely exacerbated by volume status. Monitor for response with diuresis. Assessment & Plan (09/10/2021 3:21 PM CDT): Ongoing symptoms. Previously on lyrica and Likely exacerbated by volume status. Assessment & Plan (05/28/2021 4:58 PM RECREATION THERAPY AIDE): Continue lyrica 150mg nightly Assessment & Plan (04/05/2021 4:46 PM CDT): Uncontrolled Increase lyrica to 150mg nightly (AM dose d/c 2/2 fatigue) Assessment & Plan (03/07/2021 4:44 PM CDT): Improved Continue lyrica twice a day Assessment & Plan (02/22/2021 6:34 AM CDT): Uncontrolled Having difficulty taking gabapentin tid so will switch to lyrica bid Assessment & Plan (10/16/2020 3:49 PM CDT): Stressed importance of diabetes control, offered to increase gabapentin, she declines currently, continue current dose Assessment & Plan (10/02/2020 4:35 PM CDT): Continue gabapentin Assessment & Plan (08/28/2020 1:00 PM RECREATION THERAPY AIDE): On gabapentin Assessment & Plan (07/24/2020 2:05 PM RECREATION THERAPY AIDE): Continue gabapentin Assessment & Plan (04/02/2020 1:22 PM CDT): Patient d/c gabapentin 2/2 side effects and minimal improvement Assessment & Plan (02/14/2020 5:14 PM CDT): Stable on gabapentin, taking BID Assessment & Plan (12/13/2019 1:05 PM CDT): Continue gabapentin, refilled Assessment & Plan (10/21/2019 11:01 AM CDT): Increase gabapentin to 400mg TID, patient desires to use rest of previous 100mg pills with 300mg pills Can increase further to 600mg TID if persistently bothersome Assessment & Plan (08/30/2019 5:20 PM CDT): Uncontrolled, but just restarted gabapentin Patient to confirm dosing and consider increasing Urinary tract infection without hematuria 10/10/2022 Cellulitis of great toe of right foot 01/23/2023 Encounters Date Type Department Care Team Description 06/27/2024 Nurse Triage [facility] Primary Care at [address] [place] [phone] Cherelle Corcoran MD 06/17/2024 Orders Only [facility] Gastroenterology at [place] [address] [place] [phone] Jaya Grier MD Anemia, unspecified type (Primary Dx); Gastritis without bleeding, unspecified chronicity, unspecified gastritis type 06/01/2024 Letter (Out) [facility] Primary Care [address] [place] [address] [address] [place] [phone] 05/31/2024 Telephone [facility] Primary Care at [address] [place] [phone] Cherelle Corcoran MD Medical Question/Miscellane ous 05/26/2024 Telephone [facility] Primary Care at [address] [place] [phone] Cherelle Corcoran MD 05/25/2024 Telephone [facility]al [facility] [address] [phone] Adryan Swenson MD Med Refill 05/18/2024 9:00 AM RECREATION THERAPY AIDE Office Visit [facility] Neurology [address] [place] [phone] Jaguar Hopkins Si, MD Neuroleptic-induced parkinsonism (HCC) (Primary Dx); Lacunar infarction (HCC) 05/16/2024 9:50 AM RECREATION THERAPY AIDE Lab [facility] [address] [address] Mixed hyperlipidemia 05/16/2024 8:40 AM RECREATION THERAPY AIDE Office Visit [facility] Endocrinology Metabolism and Lipid [address] [place] [address] Smith Gibbs MD Type 2 diabetes mellitus with diabetic neuropathy, with long-term current use of insulin (HCC) (Primary Dx); Primary hypertension; Mixed hyperlipidemia; ESRD on hemodialysis (CMS/HCC) (HCC); Diabetes, polyneuropathy (CMS/HCC) (HCC) 05/16/2024 Telephone [facility] Primary Care at [address] [phone] Cherelle Corcoran MD 05/02/2024 4:42 PM RECREATION THERAPY AIDE - 05/02/2024 11:59 PM RECREATION THERAPY AIDE Hospital Encounter [facility] Diagnostic Imaging [address] [place] [address] COVID Discharge Disposition: Discharge to home or self care 05/02/2024 3:30 PM RECREATION THERAPY AIDE Office Visit [facility] Primary Care at [address] [phone] Cherelle Corcoran MD Altered mental status, unspecified altered mental status type (Primary Dx); Primary hypertension; COVID; Iron deficiency anemia, unspecified iron deficiency anemia type; History of gastritis 05/02/2024 Telephone [facility] Primary Care at [address] [phone] Cherelle Corcoran MD 04/27/2024 Telephone [facility] Primary Care at [address] [phone] Cherelle Corcoran MD JOY Questions 04/22/2024 Documentation [facility] Hand & Shoulder [address] [place] [id number] Cesar Angeles, PT No Show 04/19/2024 4:47 PM CDT - 04/23/2024 7:32 PM CDT Hospital Encounter [facility] 5 Med Surg [address] [place] [address] Chris Wright MD Mecker, Robert W. 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 04/18/2024 Telephone [facility] Primary Care at [address] [phone] Cherelle Corcoran MD Med Refill (benztropine (COGENTIN) 2 mg tablet) 04/12/2024 10:45 AM CDT Therapy [facility] [address] [place] [phone] Lorie Castañeda, SNACK [employer] MIXER OPERATOR Left shoulder pain, unspecified chronicity (Primary Dx) 04/12/2024 Telephone [facility] Medical [facility] Primary Care at [address] [phone] Cherelle Corcoran MD Authorization/Certi fication 04/06/2024 10:00 AM CDT Office Visit [facility] Medical [facility] [address] [place] [phone] Brook Muhammad, JARAD Neck pain; Foraminal stenosis of cervical region, diffuse bilateral; Arthropathy of cervical facet joint; Cervical spinal osteophytosis, multilevel; DDD (degenerative disc disease), cervical, C3-C4 through C6-C7; Numbness and tingling of left upper extremity; Myalgia of muscle of neck 04/06/2024 9:45 AM CDT - 04/06/2024 11:59 PM CDT Hospital Encounter [facility] Diag Imaging [facility] [place] [address] Neck pain Discharge Disposition: Discharge to home or self care 04/05/2024 Documentation [facility] [address] [address] Cesar Angeles, PT No Show from Last 3 Months Immunizations Name Administration Dates Next Due Heplisav-b (Hepatitis B) 03/10/2024,12/20,12/10/2023,11/04 Influenza Nasal, Unspecified 04/17/2017 Influenza, Quadrivalent, Hig h Dose, Preservative Free, Intrr 08/07/2022,04/01/2022,03/07/2021,04/02 Influenza, Trivalent, Adjuva nted, Intramuscular 04/05/2024,04/06/2019 Influenza, Trivalent, IM (MDV) 04/17/2017 PPD TEST 10/22/2023 [employer] SARS-CoV-2 Monovalent Vaccination (12+ Yrs) PURPLE 06/11/2021,10/13/2020,09/22/2020 Pneumococcal Conjugate PCV 13 03/31/2017 Pneumococcal Conjugate Pcv20 04/05/2024 Pneumococcal Polysaccharide PPV23 01/20/2019 Surgical History Surgery Date Site/Laterality Comments SECTION Right right foot TOE AMPUTATION 01/06/2020 Right 4th toe amp/ foot debridement/ Dr. 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) End stage chronic kidney disease (CMS/HCC) (HCC) hemodialysis T Sat Family History Medical History Relation Name Comments Diabetes Brother 4 Ruddy Chakraborty Alcohol abuse Father Damien Chakraborty Stomach cancer Father Damien Chakraborty Diabetes Mother Lizbeth Chakraborty Heart disease Mother Lizbeth Chakraborty Kidney disease Mother Lizbeth Chakraborty Diabetes Sister 2 Valentine Smith Diabetes Sister 3 Morenita Carlos Relation Name Status Comments Brother 1 Ismael Alive Brother 2 Maria E Spivey Alive Brother 3 Brother 4 Ruddy Chakraborty Daughter Honey Alive Father Damien Chakraborty Mother Lizbeth Chakraborty Alive Other Magi Alive Sister 1 Valentine Spivey Alive Sister 2 Valentine Luis Sister 3 Morenita Carlos Social History Tobacco Use Types Packs/Day Years Used Date Smoking Tobacco: Never Passive Smoke Exposure: Never Smokeless Tobacco: Never Tobacco Cessation:Counseling Given: Not Answered Alcohol Use Standard Drinks/Week Comments Not Currently 0 (1 standard drink = 0.6 oz pur e alcohol) OASIS D0700: Social Isolation Answer Da te Recorded Frequency of experiencing loneliness or isolatio n Never 01/20/2024 OASIS A1250: Transportation Answer Date Recorded Lack of Transportation (Medical) No 01/20/2024 Lack of Transportation (Non-Medical) No 01/20/2024 Patient Unable or Declines to Respond No 01/20/2024 OASIS B1300: Health Literacy Answer Fuentes e Recorded Frequency of needing help to read materials from doctor or pharmacy Often 01/20/2024 [facility] Utilities Answer Date Recorded In the past 12 months has e [employer], oil, or water [employer] threatened to shut off services in your home? No 04/20/2024 Social Connection and Isolat ion Panel [NHANES] Answer Date Recorded In a typical week, how many times do you talk on the phone with family, friends, or neighbors? More than three times a week 04/20/2024 How often do you get togethe r with friends or relatives? More than three times a week 04/20/2024 How often do you attend chur or jain services? More than 4 times per year 04/20/2024 Do you belong to any clubs o r organizations such as confucianism groups, unions, fraternal or athletic groups, or school groups? No 04/20/2024 How often do you attend meet ings of the clubs or organizations you belong to? Never 04/20/2024 Are you , , di vorced, , never , or living with a partner? 04/20/2024 AUDIT-C Answer Date Recorded Q1: How often do you have a drink containing alcohol? Never 02/24/2024 Q2: How many drinks containi ng alcohol do you have on a typical day when you are drinking? Patient does not drink Q3: How often do you have si x or more drinks on one occasion? Never 02/24/2024 Overall Financial Resource Strain (CARDIA) Answe r Date Recorded How hard is it for you to pa y for the very basics like food, housing, medical care, and heating? Not very hard 04/20/2024 PHQ-2 Answer Date Recorded PHQ-2 Total Score 0 04/20/2024 Hunger Vital Sign Answer Date Recorded Within the past 12 months, y ou worried that your food would run out before you got the money to buy more. Never true 04/20/20 24 Within the past 12 months, t he food you bought just didn't last and you didn't have money to get more. Never true 04/20/2024 PRAPARE - Transportation Answer Date Re corded In the past 12 months, has l ack of transportation kept you from medical appointments or from getting medications? No 03/24 In the past 12 months, has l ack of transportation kept you from meetings, work, or from getting things needed for daily living? No 04/20/2024 Housing Stability Vital Sign Answer Fuentes e Recorded In the last 12 months, was t here a time when you were not able to pay the mortgage or rent on time? No 10/30/2023 In the last 12 months, how many places have you lived? 1 10/30/2023 In the last 12 months, was t here a time when you did not have a steady place to sleep or slept in a senior care (including now)? No 10/30/2023 Housing Stability Vital Sign Answer Fuentes e Recorded In the last 12 months, was t here a time when you were not able to pay the mortgage or rent on time? No 04/20/2024 In the past 12 months, how m any times have you moved where you were living? 0 04/20/2024 At any time in the past 12 m [facility], were you homeless or living in a senior care (including now)? No 04/20/2024 Personal Safety Answer Date Recorded Have you ever been in or are you currently in a harmful physical or emotional relationship or is someone making you feel afraid or unsafe? Denies 04/19/2024 Comments No Sex and Gender Information Value Date Recorded Sex Assigned at Not on file Legal Sex Female 9:03 AM RECREATION THERAPY AIDE Gender Identity Female 02/08/2020 6:39 PM CDT Sexual Orientation Not on file Obstetrics History Para Term AB IAB SAB Ectopic Multiple Livin g Live Births 3 Date Outcome GA Total Labor Labor/2nd/3rd Weight Sex Type Anes PTL Danielle A1 A5 Name Clin Last Filed Vital Signs Vital Sign Reading Time Taken Comments Blood Pressure 128/50 05/18/2024 9:04 AM RECREATION THERAPY AIDE Pulse 76 05/18/2024 9:04 AM RECREATION THERAPY AIDE Temperature 36.2 ??C (97.1 ??F) 05/02/2024 3:36 PM CS T Respiratory Rate 18 05/02/2024 3:36 PM RECREATION THERAPY AIDE Oxygen Saturation 95% 05/18/2024 9:04 AM RECREATION THERAPY AIDE Inhaled Oxygen Concentration - - Weight 60.8 kg (134 lb) 05/18/2024 9:04 AM RECREATION THERAPY AIDE Height 157.5 cm (5' 2 ) 05/18/2024 9:04 AM RECREATION THERAPY AIDE Body Mass Index 24.51 05/18/2024 9:04 AM RECREATION THERAPY AIDE Plan of Treatment Upcoming Encounters Date Type Department Care Team (Latest Contact Info) Description 07/13/2024 9:00 AM RECREATION THERAPY AIDE Hospital Encounter [facility] [address] [place] [address] Jaya Grier MD [address] [place] [phone] 07/13/2024 9:00 AM RECREATION THERAPY AIDE - 07/13/2024 9:30 AM RECREATION THERAPY AIDE Surgery [facility] [address] [place] [address] Jaya Grier MD [address] [place] [address] ESOPHAGOGASTRODUODENOSCOPY Scheduled Procedures Name Priority Associated Diagnoses Date/Ti me ESOPHAGOGASTRODUODENOSCOPY Anemia, unspecified type Gastritis without bleeding, unspecified chronicity, unspecified gastritis type 07/13/2024 9:00 AM RECREATION THERAPY AIDE COLONOSCOPY Iron deficiency anemia due to chronic blood loss Health Maintenance Due Date Last Done Comments DTaP/Tdap/Td Vaccine (1 - Tdap) 1961 Zoster Vaccine (1 of 2) 2000 Foot Exam 04/02/2021 04/02/2020 Dilated Eye Exam 05/27/2023 05/27/2022, 08/2020, 06/11/2020 Albumin Creatinine Ratio, Urine 10/11/2023 10/10/2022, 09/14/2021, 08/05/2021 Covid-19 Vaccine (4 - 2023-2 5 season) 2024 06/11/2021, 10/13/2020, 09/22/2020 Well Visit 65+ 11/09/2024 11/10/2023, 05/22, 01/08/2021 Hemoglobin A1C 11/13/2024 05/16/2024, 09/20, 06/30/2023, Additional history exists Breast Cancer Screening-Mammogram 01/21/2025 01/22/2024, 01/22/2024, 09/25/2022, Additional history exists Depression Screening 04/19/2025 04/19/2024, 04/19/2024, 11/10/2023, Additional history exists Fall Risk Assessment 04/23/2025 04/23/2024, 11/10/2023, 06/09/2022, Additional history exists eGFR 04/23/2025 04/23/2024, 06/2023, 04/21/2024, Additional history exists Lipid Panel 05/16/2025 05/16/2024, 10/20, 09/10/2021, Additional history exists Osteoporosis Screening-Bone Density Scan 01/21/2026 01/22/2024, 01/22/2024, 01/08/2021 Colon Cancer Screening-Colonoscopy 03/01/2027 03/01/2024, 04/01/2017 Hepatitis C Screening Completed 10/15/2023, 020 Colon Cancer Screening-CT Colonography Discontinued 03/01/2024, 04/01/2017 Colon Cancer Screening-DNA Stool Discontinued 03/01/20 24, 04/01/2017 Colon Cancer Screening-FIT Discontinued 03/01/2024, Colon Cancer Screening-Sigmoidoscopy Discontinued 03/01/2024, 04/01/2017 Influenza Vaccine Completed 04/05/2024, , 04/01/2022, Additional history exists Pneumococcal vaccine 65+ Completed 024, 01/20/2019, 03/31/2017 Medical Devices Implanted Type Area [employer] Device Identifier Shelf Expiration Date Model / Serial / Lot [employer]rix Duramax Vascpak Safesheath D-Pro 15.5fr 24cm Kit Catheter [id number] - [id number] Implanted:Qty: 1 on 10/15/2023 at [facility] [employer] 10/19/2025 [id number] / / [id number] Procedures Procedure Name Priority Date/Time Associated Diagnosis Comments LIPID PANEL Routine 05/16/2024 10:14 AM RECREATION THERAPY AIDE Mixed hyperlipidemia POCT HEMOGLOBIN A1C Routine 05/16/2024 9:12 AM RECREATION THERAPY AIDE Type 2 diabetes mellitus with diabetic neuropathy, with long-term current use of insulin (HCC) XR CHEST PA LATERAL 2 VIEWS Schedule Routine, Read Routine (OP Routine) 05/02/2024 5:00 PM RECREATION THERAPY AIDE COVID POCT GLUCOSE DEVICE Routine 04/23/2024 4:39 PM CDT POCT GLUCOSE DEVICE Routine 04/23/2024 2:02 PM CDT EGFR Routine 04/23/2024 1:16 PM CDT DIFFERENTIAL AUTO Routine 04/23/2024 1:16 PM CDT BASIC METABOLIC PANEL Routine 04/23/2024 1:16 PM CDT CBC WITH AUTO DIFFERENTIAL Routine 04/23/2024 1:16 PM CDT PHOSPHORUS Routine 04/23/2024 1:16 PM CDT POCT GLUCOSE DEVICE Routine 04/23/2024 8:49 AM CDT HEMODIALYSIS Routine 04/23/2024 8:30 AM CDT POCT GLUCOSE DEVICE Routine 04/22/2024 8:40 PM CDT POCT GLUCOSE DEVICE Routine 04/22/2024 5:55 PM CDT POCT GLUCOSE DEVICE Routine 04/22/2024 12:15 PM CDT [employer] EVALUATE AND TREAT VIDEOFLUOROSCOPIC SWALLOW STUDY Routine 04/22/2024 12:10 PM CDT FL MODIFIED BARIUM SWALLOW W VIDEO IP Routine 04/22/2024 11:57 AM CDT POCT GLUCOSE DEVICE Routine 04/22/2024 8:38 AM CDT PHOSPHORUS Routine 04/22/2024 8:34 AM CDT EGFR Routine 04/22/2024 8:34 AM CDT DIFFERENTIAL AUTO Routine 04/22/2024 8:34 AM CDT COMPREHENSIVE METABOLIC PANEL Routine 04/22/2024 8:34 AM CDT CBC WITH AUTO DIFFERENTIAL Routine 04/22/2024 8:34 AM CDT POCT GLUCOSE DEVICE Routine 04/21/2024 8:34 PM CDT HEMOGLOBIN AND HEMATOCRIT STAT 04/21/2024 7:24 PM CDT POCT GLUCOSE DEVICE Routine 04/21/2024 5:[address] HEAD WO CONTRAST ED Urgent/IP Urgent 04/21/2024 11:32 AM CDT POC BLOOD GAS AND CHEMISTRIES, ARTERIAL Routine 04/21/2024 10:46 AM CDT HEPATIC FUNCTION PANEL STAT 10:43 AM CDT BASIC METABOLIC PANEL STAT 04/21/2024 10:43 AM CDT EGFR STAT 04/21/2024 10:43 AM CDT MAGNESIUM STAT 04/21/2024 10:43 AM CDT DIFFERENTIAL AUTO STAT 04/21/2024 10:43 AM CDT THYROID FUNCTION CASCADE STAT 04/21/2024 10:43 AM CDT PRO B-TYPE NATRIURETIC PEPTIDE STAT 04/21/2024 10:43 AM CDT TROPONIN T HIGH-SENSITIVITY STAT 04/21/2024 10:43 AM CDT CBC WITH AUTO DIFFERENTIAL STAT 04/21/2024 10:43 AM CDT LACTATE STAT 04/21/2024 10:43 AM CDT HEPATITIS B SURFACE ANTIGEN STAT 04/21/2024 10:43 AM CDT ECG 12-LEAD STAT 04/21/2024 10:35 AM CDT POCT GLUCOSE DEVICE Routine 04/21/2024 10:32 AM CDT EGFR Routine 04/21/2024 8:56 AM CDT DIFFERENTIAL AUTO Routine 04/21/2024 8:56 AM CDT COMPREHENSIVE METABOLIC PANEL Routine 04/21/2024 8:56 AM CDT CBC WITH AUTO DIFFERENTIAL Routine 04/21/2024 8:56 AM CDT POCT GLUCOSE DEVICE Routine 04/21/2024 7:51 AM CDT POCT GLUCOSE DEVICE Routine 04/20/2024 8:18 PM CDT HEMODIALYSIS Routine 04/20/2024 5:26 PM CDT POCT GLUCOSE DEVICE Routine 04/20/2024 4:47 PM CDT MRI BRAIN WO CONTRAST IP Routine 04/20/2024 2:47 PM CDT POCT GLUCOSE DEVICE Routine 04/20/2024 12:17 PM CDT AMMONIA Add-On 04/20/2024 8:53 AM CDT POCT GLUCOSE DEVICE Routine 04/20/2024 8:30 AM CDT EGFR Routine 04/20/2024 7:55 AM CDT DIFFERENTIAL AUTO Routine 04/20/2024 7:55 AM CDT COMPREHENSIVE METABOLIC PANEL Routine 04/20/2024 7:55 AM CDT CBC WITH AUTO DIFFERENTIAL Routine 04/20/2024 7:55 AM CDT INFLUENZA A/B, RSV, AND COVID-19 PCR STAT 04/19/2024 10:53 PM CDT BLOOD CULTURE STAT 04/19/2024 10:53 PM CDT BLOOD CULTURE STAT 04/19/2024 10:53 PM CDT POCT GLUCOSE DEVICE Routine 04/19/2024 7:16 PM CDT XR CHEST 1 VIEW ED 04/19/2024 6:41 PM CDT AMMONIA STAT 04/19/2024 6:27 PM CDT TROPONIN T HIGH-SENSITIVITY 2-HOUR Timed 04/19/2024 6:27 PM CDT URINALYSIS, MICROSCOPIC ONLY STAT 04/19/2024 5:20 PM CDT URINALYSIS AND REFLEX TO MICROSCOPIC AND CULTURE STAT 04/19/2024 5:20 PM CDT ECG 12-LEAD STAT 04/19/2024 5:03 PM CDT EGFR STAT 04/19/2024 4:57 PM CDT DIFFERENTIAL AUTO STAT 04/19/2024 4:57 PM CDT TROPONIN T HIGH-SENSITIVITY SERIES (BASELINE, 2HR, 4HR, 6HR) STAT 04/19/2024 4:57 PM CDT APTT STAT 04/19/2024 4:57 PM CDT PROTIME-INR STAT 04/19/2024 4:57 PM CDT COMPREHENSIVE METABOLIC PANEL STAT 04/19/2024 4:57 PM CDT CBC WITH AUTO DIFFERENTIAL STAT 04/19/2024 4:57 PM CDT POCT GLUCOSE DEVICE Routine 04/19/2024 4:[address] STROKE PROTOCOL WO CONTRAST Critical/Life- Threatening 04/19/2024 4:51 PM CDT XR SPINE CERVICAL W FLEXION AND EXTENSION 6 OR MORE VIEWS Schedule Routine, Read Routine (OP Routine) 04/06/2024 10:08 AM CDT Neck pain [place] INJECTION SINGLE/KNOT PICKER CLOTH TRIGGER POINT 1/2 MUSCLES Routine 04/06/2024 10:00 AM CDT Myalgia of muscle of neck COLONOSCOPY 03/01/2024 8:49 AM CDT DEXA AXIAL SKELETON BONE DENSITY 1 OR MORE SITES Schedule Routine, Read Routine (OP Routine) 01/22/2024 12:32 PM CDT Post-menopausal SCREENING MAMMOGRAM BILATERAL W STALIN Schedule Routine, Read Routine (OP Routine) 01/22/2024 12:21 PM CDT Encounter for screening mammogram for breast cancer HEPATITIS PANEL, ACUTE Routine 6:50 AM CDT ALBUMIN CREATININE RATIO, URINE Routine 10/10/2022 11:39 AM CDT Diabetic nephropathy (CMS/HCC) (HCC) DIABETIC EYE EXAM Routine 05/27/2022 from Last 3 Months or Most Recently Relevant to Health Maintenance Results * Lipid panel (05/16/2024 10:14 AM RECREATION THERAPY AIDE) Cholesterol 160 30 - 199 mg/dL Comment: Interpretive Data Ages < or = 19 years ??Acceptable: ? <170 mg/dL ??Borderline high: ??170-199 mg/dL ??High: ? >or= 200 mg/dL Ages > or = 20 years ??Desirable: ?<200 mg/dL ??Borderline high: ??200-239 mg/dL ??High: ? >or= 240 mg/dL Literature References: 1. Expert Panel on Integrated Guidelines for Cardiovascular Health and Risk Reduction in Children and Adolescents. Pediatrics 2011;128:S213 2. NCEP Expert Panel. Circulation 2004;110:227 Current Interpretive Data was last revised on 2018. Triglycerides 122 <=149 mg/dL NILSA DIAS Comment: Interpretive Data Ages < or = 9 years ??Acceptable: ? <75 mg/dL ??Borderline high: ??75-99 mg/dL ??High: ? >or= 100 mg/dL Ages 10 to 20 years ??Acceptable: ? <90 mg/dL ??Borderline high: ??90-129 mg/dL ??High: ? >or= 130 mg/dL Ages > or = 20 years ??Desirable: ?<150 mg/dL ??Borderline high: ??150-199 mg/dL ??High: ? 200-499 mg/dL ?Very high: ?? >or= 499 mg/dL Literature References: 1. Expert Panel on Integrated Guidelines for Cardiovascular Health and Risk Reduction in Children and Adolescents. Pediatrics 2011;128:S213 2. NCEP Expert Panel. Circulation 2004;110:227 Current Interpretive Data was last revised on 2018. HDL 49 >=40 mg/dL NISLA DIAS Comment: Interpretive Data Ages < or = 19 years ??Acceptable: ? >45 mg/dL ??Borderline low: ?? 40-45 mg/dL ??Low: ? <40 mg/dL Ages > or = 20 years ??Desirable: ?>or= 60 mg/dL ??Low: ? <40 mg/dL Literature References: 1. Expert Panel on Integrated Guidelines for Cardiovascular Health and Risk Reduction in Children and Adolescents. Pediatrics 2011;128:S213 2. NCEP Expert Panel. Circulation 2004;110:227 Current Interpretive Data was last revised on 2018. LDL, calculated 89 <=129 mg/dL NILSA DIAS Comment: Interpretive Data Ages < or = 19 years ??Acceptable: ? <110 mg/dL ??Borderline high: ??110-129 mg/dL ??High: ?>or= 130 mg/dL Ages > or = 20 years ??Optimal: ? <100 mg/dL ??Near optimal: ?100-129 mg/dL ??Borderline high: ?? 130-159 mg/dL ??High: ?>160 mg/dL Calculated using the Sanket LDL-C estimating equation. This equation was implemented on 2024. Prior to this date LDL-C was estimated using the Friedewald equation. Literature References: 1. Expert Panel on Integrated Guidelines for Cardiovascular Health and Risk Reduction in Children and Adolescents. Pediatrics 2011;128:S213 2. NCEP Expert Panel. Circulation 2004;110:227 3. Sanket Jimenes et al. SAVITA Cardiol. 2020 October 20;5(5):540-548. doi: 10.1001/jamacardio.2020.0013 Current Interpretive Data was last revised on 2024. Non-HDL Cholesterol 111 mg/dL NILSA DIAS Comment: Interpretive Data Ages < or = 19 years ??Acceptable: ?<120 mg/dL ??Borderline high: ??120-144 mg/dL ??High: ?>145 mg/dL Ages > or = 20 years ??When triglycerides are >200 mg/dL, Non-HDL cholesterol is a secondary target of ? therapy with treatment goals that are 30 mg/dL greater than the LDL cholesterol target. ? Literature References: 1. Expert Panel on Integrated Guidelines for Cardiovascular Health and Risk Reduction in Children and Adolescents. Pediatrics 2011;128:S213 2. NCEP Expert Panel. Circulation 2004;110:227 Current Interpretive Data was last revised on 2018. Chol/HDL ratio 3 NILSA DIAS Blood 05/16/2024 10:1 4 AM RECREATION THERAPY AIDE 05/16/2024 10:50 AM RECREATION THERAPY AIDE Narrative NILSA DIAS - 05/16/2024 11:23 AM RECREATION THERAPY AIDE These lab test should be done fasting. This means do not eat or drink for at least 12 hours prior to getting your blood drawn. us Smith Gibbs MD LAB BLOOD ORDERABLES Final R esult NILSA [facility] [id number] [facility]. [place] [address] * POCT hemoglobin A1c (05/16/2024 9:12 AM RECREATION THERAPY AIDE) Hemoglobin A1C, POC 6.5 4.0 - 5.6 % Blood 05/16/2024 9:12 AM RECREATION THERAPY AIDE [facility] Bernie YOUNG POINT OF CARE TEST ORDERABLE S Final Result * XR Chest PA Lateral 2 Views (05/02/2024 5:00 PM RECREATION THERAPY AIDE) Anatomical Region Laterality Modality Body, Chest N/A Computed Radiogr aphy 05/05/2024 9:08 PM RECREATION THERAPY AIDE Narrative 05/05/2024 9:09 PM RECREATION THERAPY AIDE EXAM DESCRIPTION: XR CHEST PA LATERAL 2 VIEWS REASON FOR STUDY: ?? Has had a head cold for a week. Sob and fatigue. ?? TECHNIQUE: There are 2 ??radiographic view(s) of the chest. COMPARISON: Prior exam 04/19/2024, 02/09/2024 and 12/19/2023 FINDINGS: LUNGS: ??Pulmonary vascularity appears normal. ??No confluent infiltrate or effusion. ?? HEART/MEDIASTINUM: ??Cardiac silhouette normal in size. Mediastinal and hilar contours appear normal. LINES/TUBES: ??Dialysis catheter overlies the right chest with the tip overlying the cavoatrial junction. BONES: ??No acute osseous abnormality. IMPRESSION: No acute findings or infiltrate. Dialysis catheter tip overlies the cavoatrial junction. THIS IS AN ELECTRONICALLY VERIFIED FINAL REPORT 05/05/2024 9:09 PM - Electronically signed by ??Larry Escobar M.D. MJ: JOHN D: ??05/05/2024 9:09 PM T: ??05/05/2024 9:09 PM Report ID: [id number] Reading Location: ??[id number] Procedure Note Larry Escobar MD - 05/05/2024 EXAM DESCRIPTION: XR CHEST PA LATERAL 2 VIEWS REASON FOR STUDY: Has had a head cold for a week. Sob and fatigue. TECHNIQUE: There are 2 radiographic view(s) of the chest. COMPARISON: Prior exam 04/19/2024, 02/09/2024 and 12/19/2023 FINDINGS: LUNGS: Pulmonary vascularity appears normal. No confluent infiltrate or effusion. HEART/MEDIASTINUM: Cardiac silhouette normal in size. Mediastinal andhilar contours appear normal. LINES/TUBES: Dialysis catheter overlies the right chest with the tip overlying the cavoatrial junction. BONES: No acute osseous abnormality. IMPRESSION: No acute findings or infiltrate. Dialysis catheter tip overlies the cavoatrial junction. THIS IS AN ELECTRONICALLY VERIFIED FINAL REPORT 05/05/2024 9:09 PM - Electronically signed by Larry Escobar M.D. MJ: JOHN Report ID: [id number] Reading Location: [place] [address] us Cherelle Corcoran MD IMG XR PROCEDURES Final Result * POCT glucose (04/23/2024 4:39 PM CDT) Glucose, POC 150 70 - 199 mg/dL Comment:Testing performed by : [address] [address] Blood 04/23/2024 4:39 PM CDT 04/23/2024 4:39 PM CDT us Cheryl Slater MD LAB POCT ORDERABLES - DE VICE Final Result NILSA [address] [facility] Department [place] [address] * POCT glucose (04/23/2024 2:02 PM CDT) Glucose, POC 184 70 - 199 mg/dL Comment:Testing performed by : [address] [address] Blood 04/23/2024 2:02 PM CDT 04/23/2024 2:02 PM CDT us Cheryl Slater MD LAB POCT ORDERABLES - DE VICE Final Result Performing Organization Address City/State/ZIP Ms de Phone Number NILSA [address] [facility] Department of Laboratories [place], [place] [id number] * (ABNORMAL) eGFR (04/23/2024 1:16 PM CDT) eGFR 20(L) >=60 mL/min/1. 73 m2 Comment: Interpretive Data Reference Interval Normal ?>/= 90 mL/min/1.73m2 Mildly decreased* ? 60 - 89 mL/min/1.73m2 Mildly to moderately decreased ?45 - 59 mL/min/1.73m2 Moderately to severely decreased ??30 - 44 mL/min/1.73m2 Severely decreased ?15 - 29 mL/min/1.73m2 Kidney Failure ?< 15 ??mL/min/1.73m2 *Relative to young adult level Estimated glomerular filtration rate is determined by the 2020 CKD-EPI equation recommended by the National Kidney Foundation (A Unifying Approach to GFR Estimation: Recommendations of the NKF-ASK Task Force on Reassessing the Inclusion of Race in Diagnosing Kidney Disease, JASN 2020). The CKD-EPI equation should not be used for patients with unstable renal function and has not been validated in children and those over 70. Current interpretive data was last reviewed 2021. Testing performed by: [facility], [address] [place] [address], [place]., [address] Blood 04/23/2024 1:16 PM CDT 04/23/2024 1:21 PM CDT us Cheryl Slater MD LAB BLOOD ORDERABLES Fin al Result NILSA 14[address] [facility] Department [place] [address] * Differential, auto (04/23/2024 1:16 PM CDT) Neutrophil abs 5.6 1.5 - 6.5 K/cumm Comment:Testing performed by : [address] [address] Imm gran abs 0.0 0.0 - 0.1 K/cumm NILSA Comment:Testing performed by : [address] [address] Lymphocyte abs 2.1 0.8 - 3.3 K/cumm NILSA Comment:Testing performed by : [address] [address] Monocyte abs 0.6 0.2 - 0.8 K/cumm NILSA Comment:Testing performed by : [address] [address] Eosinophil abs 0.1 0.0 - 0.5 K/cumm NILSA Comment:Testing performed by : [address] [address] Basophil abs 0.0 0.0 - 0.1 K/cumm NILSA Comment:Testing performed by : [address] [address] Neutrophil pct 67.0 % NILAS Comment: Interpretive Data Percent cell count reference ranges are not reported, since discordance with absolute values may lead to misinterpretation of CBC data. Current Interpretive Data was last revised on 2017. Testing performed by: [address] [address] Imm gran pct 0.5 % NILSA Comment: Interpretive Data Percent cell count reference ranges are not reported, since discordance with absolute values may lead to misinterpretation of CBC data. Current Interpretive Data was last revised on 2017. Testing performed by: [address] [address] Lymphocyte pct 24.7 % NILSA Comment: Interpretive Data Percent cell count reference ranges are not reported, since discordance with absolute values may lead to misinterpretation of CBC data. Current Interpretive Data was last revised on 2017. Testing performed by: [address] [address] Monocyte pct 6.6 % NILSA Comment: Interpretive Data Percent cell count reference ranges are not reported, since discordance with absolute values may lead to misinterpretation of CBC data. Current Interpretive Data was last revised on 2017. Testing performed by: [address] [address] Eosinophil pct 1.0 % NILSA Comment: Interpretive Data Percent cell count reference ranges are not reported, since discordance with absolute values may lead to misinterpretation of CBC data. Current Interpretive Data was last revised on 2017. Testing performed by: [address] [address] Basophil pct 0.2 % NILSA Comment: Interpretive Data Percent cell count reference ranges are not reported, since discordance with absolute values may lead to misinterpretation of CBC data. Current Interpretive Data was last revised on 2017. Testing performed by: [address] [address] Blood 04/23/2024 1:16 PM CDT 04/23/2024 1:21 PM CDT us Cheryl Slater MD LAB BLOOD ORDERABLES Fin al Result NILSA 98[address] [facility] Department [place] [address] * (ABNORMAL) CBC with auto differential (04/23/2024 1:16 PM CDT) Pathologist [facility] WBC 8.3 3.8 - 9.9 K/cumm Comment:Testing performed by : [address] [address] Hgb 9.5(L) 11.9 - 15.5 g/dL NILSA Comment:Testing performed by : [address], [address] Hct 28.2(L) 35.6 - 45.5 % NILSA Comment:Testing performed by : [address], [address] Plt 176 150 - 400 K/cumm NILSA Comment:Testing performed by : [address], [address] MPV 10.5 9.1 - 12.3 fL NILSA Comment:Testing performed by : [address], [address] RBC 3.10(L) 3.90 - 5.20 M/cumm NILSA Comment:Testing performed by : [address], [address] MCV 91.0 81.3 - 96.4 fL NILSA Comment:Testing performed by : [address], [address] MCH 30.6 27.1 - 33.3 pg NILSA Comment:Testing performed by : [address], [address] MCHC 33.7 32.3 - 35.7 g/dL NILSA Comment:Testing performed by : [address], [address] RDW CV 14.4 11.1 - 14.9 % NILSA Comment:Testing performed by : [address], [address] RDW SD 47.1 35.7 - 48.1 fL NILSA Comment:Testing performed by : [address], [address] NRBC abs 0.02(H) 0.00 - 0.01 K/cumm NILSA Comment:Testing performed by : [address], [address] Blood 04/23/2024 1:16 PM CDT 04/23/2024 1:21 PM CDT Cheryl Slater MD LAB BLOOD ORDERABLES Fin al Result Performing Organization Address [facility] Co de Phone Number [address] [place] [address] * (ABNORMAL) Phosphorus (04/23/2024 1:16 PM CDT) Pathologist [facility] Phosphorus, pl 1.9(L) 2.3 - 4.5 mg/dL Comment:Testing performed by : [address] [address] Blood 04/23/2024 1:16 PM CDT 04/23/2024 1:21 PM CDT Cheryl Slater MD LAB BLOOD ORDERABLES Fin al Result Performing Organization Address [facility] Co de Phone Number [address] [place] [address] * (ABNORMAL) Basic metabolic panel (04/23/2024 1:16 PM CDT) [facility] Sodium 130(L) 135 - 145 mmol/L Comment:Testing performed by : [address] [address] Potassium, pl 4.4 3.3 - 4.9 mmol/L NILSA Comment:Testing performed by : [address] [address] Chloride 94(L) 97 - 110 mmol/L NILSA Comment:Testing performed by : [address] [address] CO2 25 22 - 32 mmol/L NILSA Comment:Testing performed by : [address] [address] Anion gap 11 2 - 15 mmol/L NILSA Comment:Testing performed by : [address] [address] BUN 24 6 - 25 mg/dL NILSA Comment:Testing performed by : [address] [address] Creatinine 2.50(H) 0.60 - 1.10 mg/dL NILSA Comment:Testing performed by : [address] [address] Glucose 194 70 - 199 mg/dL NILSA Comment: Interpretive Data Fasting glucose >/= 126 mg/dl is diagnostic for diabetes. ?? Fasting is defined as no caloric intake for at least 8 hours. Fasting glucose between 100 mg/dl to 125 mg/dl is diagnostic of prediabetes. In a patient with classic symptoms of hyperglycemia or hyperglycemic crisis, a random glucose >/= 200 mg/dl is diagnostic for diabetes. In the absence of unequivocal hyperglycemia, results should be confirmed by repeat testing. The classification and Diagnosis of Diabetes Diabetes Care 2021; 46: S19-S40. Current interpretive data was last revised 2022. Testing performed by: [address] [address] Calcium 8.5 8.5 - 10.3 mg/dL NILSA Comment:Testing performed by : [address] [address] Blood 04/23/2024 1:16 PM CDT 04/23/2024 1:21 PM CDT Cheryl Slater MD LAB BLOOD ORDERABLES Fin al Result Performing Organization Address City/[facility]/ZIP Co de Phone Number [address] [place] [place] [address] * POCT glucose (04/23/2024 8:49 AM CDT) [facility] Signature Glucose, POC 115 70 - 199 mg/dL Comment:Testing performed by : [address] [address] Blood 04/23/2024 8:49 AM CDT 04/23/2024 8:49 AM CDT Cheryl Slater MD LAB POCT ORDERABLES - DE VICE Final Result Performing Organization Address City/[facility]/ZIP Co de Phone Number [address] [place] [address] * POCT glucose (04/22/2024 8:40 PM CDT) Glucose, POC 174 70 - 199 mg/dL Comment:Testing performed by : [address] [address] Glucose comment 1 Use This Result NILSA RODRIGES Comment:Testing performed by : [address] [address] Glucose comment 2 RN/MD Notified NILSA RODRIGES Comment:Testing performed by : [address] [address] Blood 04/22/2024 8:40 PM CDT 04/22/2024 8:40 PM CDT Cheryl Slater MD LAB POCT ORDERABLES - DE VICE Final Result Performing Organization Address City/[facility]/ZIP Co de Phone Number NILSA [address] [place] [address] * POCT glucose (04/22/2024 5:55 PM CDT) Glucose, POC 110 70 - 199 mg/dL Comment:Testing performed by : [address] [address] Blood 04/22/2024 5:55 PM CDT 04/22/2024 5:55 PM CDT Cheryl Slater MD LAB POCT ORDERABLES - DE VICE Final Result [address]LOS EN[address] [place] [address] * (ABNORMAL) POCT glucose (04/22/2024 12:15 PM CDT) Glucose, POC 226(H) 70 - 199 mg/dL Comment:Testing performed by : [address] [address] Glucose comment 1 Use This Result NILSA RODRIGES Comment:Testing performed by : [facility] [address] [place] [address]., [address] Glucose comment 2 RN/MD Notified NILSA RODRIGES Comment:Testing performed by : [facility], [address] [place] [address]., [address] Blood 04/22/2024 12:1 5 PM CDT 04/22/2024 12:15 PM CDT Cheryl Slater MD LAB POCT ORDERABLES - DE VICE Final Result NILSA RODRIGES 0 [facility] Department [place] [address] * [employer] Evaluate and Treat (VFSS) (04/22/2024 12:10 PM CDT) Narrative Becky Gold [employer] - 04/22/2024 12:10 PM CDT Becky Gold [employer] ? 04/22/2024 ??1:21 PM [facility] Inpatient Speech-Language Pathology Modified Barium Swallow Study PRIOR MEDICAL HISTORY/GENERAL INFORMATION Patient Name/: ??Barbara Chakraborty / 1950 Age/Sex: ??73 y.o. / female Room/Date of Service: ??@ROOM@ / 04/22/2024 Admit Date/Primary Hospital Diagnosis: 04/19/2024 / Metabolic encephalopathy [G93.41] Debility [R53.81] Weakness [R53.1] Mild protein-calorie malnutrition (CMS/HCC) (HCC) [E44.1] Altered mental status, unspecified altered mental status type [R41.82] ? Referring Provider: Cheryl Slater MD ? HPI: Barbara Chakraborty is a 73 y.o. female with past medical history of ESRD on intermittent hemodialysis, receives dialysis Thursday//Thursday, type 2 diabetes on insulin therapy complicated by diabetic neuropathy, dementia, GERD, hypertension, schizophrenia who presents to the ED with altered mental status. Patient was referred to speech pathology services for Initial VFSS due to To assess oral-pharyngeal swallow function (difficulty with pills). Patient is agreeable to speech pathology evaluation. Lab/Imaging: Recent Labs Lab Units 04/22/24 0834 WBC K/cumm 8.7 HEMOGLOBIN g/dL 10.0* HEMATOCRIT % 31.0* PLATELETS K/cumm 199 Allergies Reviewed: Yes; Patient has no known allergies. Precautions: Orders Placed This Encounter Procedures Fall precautions Pain Assessment: pt reported no pain during swallow eval Patient Goal: pt does not state specific swallowing goals Recommendations Diet Solids Recommendation: Regular Diet Liquids Recommendations: Thin/regular Recommended Form of Medications: ??(pt may benefit from cutting large pills or crushing and giving in puree) Compensatory Strategies/Modifications: Alternate solids and liquids Postural Recommendations: Upright 90 degrees Assistance: Intermittent supervision Assessment Purpose and Procedure of Modified Barium Swallow Study: ?? Completed to assess the function, safety, and efficiency of the oropharyngeal and pharyngoesophageal domains of swallowing, rule out aspiration, make recommendations regarding safe dietary consistencies, effective compensatory strategies, and safe eating environment. This test is completed in conjunction with Radiology and is neither intended to diagnose any other radiologic abnormalities nor is it a substitute for a formal esophagram study. Results of this test are indicative of performance at the time of the exam. Standard procedure is in lateral view at 90 degrees. A/P views may capture pharyngoesophageal images. Initial or Repeat MBS: Initial VFSS Diet Orders Prior to Assessment: Adult Diet Restricted; 4 CHO/Meal; Yes, patient is receiving insulin Home Diet/Baseline Feeding Status: Regular and Thin Respiratory Status: Current O2 support: Room air ; Respiratory Support: No Significant Impairment- Respiratory support is adequate for speech & swallowing Respiratory Status: Room air History of Intubation: No Tracheostomy: ??(no) Behavior/Cognition: Alert, Cooperative, Pleasant mood Vision: Functional for self-feeding Patient Positioning: Upright in chair Baseline Vocal Quality: Within Functional Limits Volitional Cough: Strong Volitional Swallow: Within Functional Limits Secretion Management: Yes Oral Motor Assessment: Oral Mucosa: moist and pink Labial ROM: Within Functional Limits Labial Symmetry: Within Functional Limits Labial Strength: Within Functional Limits Labial Sensation: Within Functional Limits Lingual ROM: Within Functional Limits Lingual Symmetry: Within Functional Limits Lingual Strength: Within Functional Limits Lingual Sensation: Within Functional Limits Palatal Elevation: Within Functional Limits Mandible: Within Functional Limits Facial ROM: Within Functional Limits Facial Symmetry: Within Functional Limits Facial Strength: Within Functional Limits Facial Sensation: Within Functional Limits Dentition: Adequate Gag: ??(DNT) Consistencies Administered: Consistencies Administered: Thin liquids, [place] thickened liquids, Honey thickened liquids, Purees, Solids Administered consistencies contain barium product. Overall Clinical Impression/Additional Information: Mild oral stage dysphagia with motor deficits characterized by the following: Oral Phase: prolonged oral manipulation/mastication with delayed initiation of AP transfer Pharyngeal Phase: penetration of thin liquids <1/2 the length of laryngeal vestibule, pt exhibits sensate throat clear response that ejects penetrate When taking pill, first liquid swallow did not clear pill from pharynx and required additional liquid swallow ??Puree ??Honey ??[place] ??Thin ??Solids Oral Management: slow and prolonged manipulation; delayed initiation of tongue motion and bolus transport; slowed tongue motion and bolus transport; minimal oral residuals escape to lateral buccal cavity or floor of mouth; slow and prolonged manipulation with complete re-collection; bolus rocking; delayed initiation of tongue motion and bolus transport; slowed tongue motion and bolus transport; minimal oral residuals escape to lateral buccal cavity or floor of mouth; delayed initiation of tongue motion and bolus transport; minimal oral residuals slow and prolonged chewing and mashing with complete re-collection; delayed initiation of tongue motion and bolus transport; mild residue collection on oral structures; Swallow Onset: ??forward hyoid movement begins as bolus head has overflowed vallecular space but has not reached pyriforms; forward hyoid movement begins as bolus head is within pyriform space; forward hyoid movement begins as bolus head is within vallecular space; Soft Palate Seal and Tongue Base Retraction: appropriate velar/posterior pharyngeal wall seal with no visible contrast between; and appropriate tongue base/posterior pharyngeal wall seal with no visible contrast between; Height of the Swallow: complete forward hyoid movement, complete thyroid elevation, complete epiglottic inversion and uncurling Airway Protection During the Swallow: complete laryngeal vestibule seal during the swallow; incomplete; narrow column of air or contrast within laryngeal vestibule; Pharyngeal Management: ??in lateral view, pharyngeal stripping wave is present and complete; ?? Bolus Passage into Esophagus: ??complete distention and complete duration of PES; no obstruction of bolus flow; Pharyngeal Residuals after the 1st swallow: complete pharyngeal clearance Penetration: no penetration occurs trace volume penetration occurs during the swallow reaching <1/2 the length of laryngeal vestibule; some is ejected during the swallow, independent light contact throat clear ejects remaining no penetration occurs Aspiration: ??no aspiration occurs Education Education: Patient has been educated on the swallow study results, diet recommendations, aspiration precautions, and plan of care. Education completed via verbal explanation. Patient may require ongoing reinforcement. Plan ?? Recommended Follow-Up: ??(d/c skilled ST after evaluation on this date) [employer] Frequency: Discharge from this Service Next Planned Visit: ??(n/a) Discharge Recommendations: Defer at this time Barriers to Discharge: defer to medical team Discharge Summary Statement If this is the last speech therapy visit, this serves as the discharge summary. Becky Gold M.S., [facility] Goals established: 04/22/24 [employer] Care Plan Problems/Goals ?? None Planning Specialist Services Utilized: NO This patient was identified by name and on this visit. [employer] Start Time: 1145 [employer] Stop Time: 1210 [employer] Time Calculation (min): 25 min us Cheryl Slater MD [employer] ORDERABLES Final Re sult * FL Modified Barium Swallow W Video (04/22/2024 11:57 AM CDT) Anatomical Region Laterality Modality Head and Neck N/A Computed Radiogr aphy 04/22/2024 12:3 4 PM CDT Narrative 04/22/2024 12:36 PM CDT EXAM DESCRIPTION: ?? FL MODIFIED BARIUM SWALLOW EVALUATION WITH SPEECH THERAPIST REASON FOR STUDY: ?? DIFFICULTY SWALLOWING ?? RADIATION DOSE: Dose: ??360.74 ?? uGym2 Dose Area Product (DAP) TECHNIQUE: Fluoroscopic assistance provided to Speech Pathology Department who performed the exam. The patient was brought into the fluoro room and placed upright on a modified barium swallow chair. ??The patient was then given multiple consistencies mixed with barium to swallow under live fluoroscopic video guidance. COMPARISON: ?? None available. FINDINGS: Puree, honey, nectar, thin and regular solid consistencies were orally administered during lateral fluoroscopy monitoring. ??There is penetration with thin liquid consistency. ??A barium pill was also administered. IMPRESSION: ?? Penetration with thin liquid consistency. Please correlate with Speech Pathology report. THIS IS AN ELECTRONICALLY VERIFIED FINAL REPORT 04/22/2024 12:36 PM - Electronically signed by ??Jose Duvall D.O. AP: AP D: ??04/22/2024 12:36 PM T: ??04/22/2024 12:36 PM Report ID: [id number] Reading Location: ??[id number] Procedure Note Jadiel Jose, DO - 04/22/2024 EXAM DESCRIPTION: FL MODIFIED BARIUM SWALLOW EVALUATION WITH SPEECH THERAPIST REASON FOR STUDY: DIFFICULTY SWALLOWING RADIATION DOSE: Dose: 360.74 uGym2 Dose Area Product (DAP) TECHNIQUE: Fluoroscopic assistance provided to Speech Pathology Departmentwho performed the exam. The patient was brought into the fluoro room and placed upright on amodified barium swallow chair. The patient was then given multiple consistenciesmixed with barium to swallow under live fluoroscopic video guidance. COMPARISON: None available. FINDINGS: Puree, honey, nectar, thin and regular solid consistencies were orally administered during lateral fluoroscopy monitoring. There is penetration with thin liquid consistency. A barium pill was also administered. IMPRESSION: Penetration with thin liquid consistency. Please correlate with Speech Pathology report. THIS IS AN ELECTRONICALLY VERIFIED FINAL REPORT 04/22/2024 12:36 PM - Electronically signed by Jose Duvall D.O. AP: AP Report ID: [id number] Reading Location: [id number] Cheryl Slater MD IMG FLUOROSCOPY PROCEDUR ES Final Result * POCT glucose (04/22/2024 8:38 AM CDT) Glucose, POC 130 70 - 199 mg/dL Comment:Testing performed by : [address] [address] Glucose comment 1 Use This Result NILSA RODRIGES Comment:Testing performed by : [address] [address] Glucose comment 2 RN/MD Notified NILSA RODRIGES Comment:Testing performed by : [address] [address] Blood 04/22/2024 8:38 AM CDT 04/22/2024 8:38 AM CDT us Cheryl Slater MD LAB POCT ORDERABLES - DE VICE Final Result NILSA [address] [facility] [place] [address] * (ABNORMAL) eGFR (04/22/2024 8:34 AM CDT) eGFR 9(L) >=60 mL/min/1. 73 m2 Comment: Interpretive Data Reference Interval Normal ?>/= 90 mL/min/1.73m2 Mildly decreased* ? 60 - 89 mL/min/1.73m2 Mildly to moderately decreased ?45 - 59 mL/min/1.73m2 Moderately to severely decreased ??30 - 44 mL/min/1.73m2 Severely decreased ?15 - 29 mL/min/1.73m2 Kidney Failure ?< 15 ??mL/min/1.73m2 *Relative to young adult level Estimated glomerular filtration rate is determined by the 2020 CKD-EPI equation recommended by the National Kidney Foundation (A Unifying Approach to GFR Estimation: Recommendations of the NKF-ASK Task Force on Reassessing the Inclusion of Race in Diagnosing Kidney Disease, JASN 2020). The CKD-EPI equation should not be used for patients with unstable renal function and has not been validated in children and those over 70. Current interpretive data was last reviewed 2021. Testing performed by: [facility], [address] [place] [address]., [address] Blood 04/22/2024 8:34 AM CDT 04/22/2024 9:26 AM CDT us Cheryl Slater MD LAB BLOOD ORDERABLES Fin al Result [facility] [address] [facility] Department [place] [address] * Differential, auto (04/22/2024 8:34 AM CDT) Neutrophil abs 5.8 1.5 - 6.5 K/cumm Comment:Testing performed by : [address] [address] Imm gran abs 0.0 0.0 - 0.1 K/cumm NILSA Comment:Testing performed by : [address] [address] Lymphocyte abs 2.3 0.8 - 3.3 K/cumm NILSA Comment:Testing performed by : [address] [address] Monocyte abs 0.6 0.2 - 0.8 K/cumm [facility] Comment:Testing performed by : [address] [address] Eosinophil abs 0.1 0.0 - 0.5 K/cumm [facility] Comment:Testing performed by : [address] [address] Basophil abs 0.0 0.0 - 0.1 K/cumm [facility] Comment:Testing performed by : [address] [address] Neutrophil pct 66.3 % [facility] Comment: Interpretive Data Percent cell count reference ranges are not reported, since discordance with absolute values may lead to misinterpretation of CBC data. Current Interpretive Data was last revised on 2017. Testing performed by: [address] [address] Imm gran pct 0.2 % NILSA Comment: Interpretive Data Percent cell count reference ranges are not reported, since discordance with absolute values may lead to misinterpretation of CBC data. Current Interpretive Data was last revised on 2017. Testing performed by: [address] [address] Lymphocyte pct 26.0 % NILSA Comment: Interpretive Data Percent cell count reference ranges are not reported, since discordance with absolute values may lead to misinterpretation of CBC data. Current Interpretive Data was last revised on 2017. Testing performed by: [address] [address] Monocyte pct 6.4 % NILSA Comment: Interpretive Data Percent cell count reference ranges are not reported, since discordance with absolute values may lead to misinterpretation of CBC data. Current Interpretive Data was last revised on 2017. Testing performed by: [address] [address] Eosinophil pct 0.9 % NILSA Comment: Interpretive Data Percent cell count reference ranges are not reported, since discordance with absolute values may lead to misinterpretation of CBC data. Current Interpretive Data was last revised on 2017. Testing performed by: [address] [address] Basophil pct 0.2 % NILSA Comment: Interpretive Data Percent cell count reference ranges are not reported, since discordance with absolute values may lead to misinterpretation of CBC data. Current Interpretive Data was last revised on 2017. Testing performed by: [address] [address] Blood 04/22/2024 8:34 AM CDT 04/22/2024 9:25 AM CDT us Cheryl Slater MD LAB BLOOD ORDERABLES Fin al Result [facility] [address] [facility] Department [place] [address] * (ABNORMAL) CBC with auto differential (04/22/2024 8:34 AM CDT) WBC 8.7 3.8 - 9.9 K/cumm Comment:Testing performed by : [address] [address] Hgb 10.0(L) 11.9 - 15.5 g/dL NILSA Comment:Testing performed by : [address] [place]., [address] Hct 31.0(L) 35.6 - 45.5 % NILSA Comment:Testing performed by : [address] [address] Plt 199 150 - 400 K/cumm NILSA Comment:Testing performed by : [address] [address] MPV 11.2 9.1 - 12.3 fL NILSA Comment:Testing performed by : [address], [address] RBC 3.31(L) 3.90 - 5.20 M/cumm NILSA Comment:Testing performed by : [address], [address] MCV 93.7 81.3 - 96.4 fL NILSA Comment:Testing performed by : [address], [address] MCH 30.2 27.1 - 33.3 pg NILSA Comment:Testing performed by : [address], [address] MCHC 32.3 32.3 - 35.7 g/dL NILSA Comment:Testing performed by : [address], [address] RDW CV 14.4 11.1 - 14.9 % NILSA Comment:Testing performed by : [address], [address] RDW SD 49.1(H) 35.7 - 48.1 fL NILSA Comment:Testing performed by : [address], [address] NRBC abs 0.00 0.00 - 0.01 K/cumm NILSA Comment:Testing performed by : [address], [address] Blood 04/22/2024 8:34 AM CDT 04/22/2024 9:25 AM CDT Cheryl Slater MD LAB BLOOD ORDERABLES Fin al Result Performing Organization Address City/State/[facility] de Phone Number CARLOS ENRIQUE[address] [address] * Phosphorus (04/22/2024 8:34 AM CDT) [facility] Phosphorus, pl 3.7 2.3 - 4.5 mg/dL Comment:Testing performed by : [address] [address] Blood 04/22/2024 8:34 AM CDT 04/22/2024 9:26 AM CDT us Cheryl Slater MD LAB BLOOD ORDERABLES Fin al Result Performing Organization Address [facility] Co de Phone Number CARLOS ENRIQUE[address] [place] [address] * (ABNORMAL) Comprehensive metabolic panel (04/22/2024 8:34 AM CDT) [facility] Sodium 137 135 - 145 mmol/L Comment:Testing performed by : [address] [address] Potassium, pl 4.6 3.3 - 4.9 mmol/L NILSA Comment: Delta - Results Reviewed Testing performed by: [address] [address] Chloride 98 97 - 110 mmol/L NILSA Comment:Testing performed by : [address] [address] CO2 21(L) 22 - 32 mmol/L NILSA Comment:Testing performed by : [address] [address] Anion gap 18(H) 2 - 15 mmol/L NILSA Comment:Testing performed by : [address] [address] BUN 53(H) 6 - 25 mg/dL NILSA Comment:Testing performed by : [address] [address] Creatinine 4.70(H) 0.60 - 1.10 mg/dL NILSA Comment:Testing performed by : [address] [address] Glucose 134 70 - 199 mg/dL NILSA Comment: Interpretive Data Fasting glucose >/= 126 mg/dl is diagnostic for diabetes. ?? Fasting is defined as no caloric intake for at least 8 hours. Fasting glucose between 100 mg/dl to 125 mg/dl is diagnostic of prediabetes. In a patient with classic symptoms of hyperglycemia or hyperglycemic crisis, a random glucose >/= 200 mg/dl is diagnostic for diabetes. In the absence of unequivocal hyperglycemia, results should be confirmed by repeat testing. The classification and Diagnosis of Diabetes Diabetes Care 2021; 46: S19-S40. Current interpretive data was last revised 2022. Testing performed by: [address] [address] Calcium 9.6 8.5 - 10.3 mg/dL NILSA Comment:Testing performed by : [address] [address] Bilirubin, total 0.2 0.1 - 1.2 mg/dL NILSA Comment:Testing performed by : [address] [address] Protein, pl 7.7 6.5 - 8.5 g/dL NILSA Comment:Testing performed by : [address] [address] Albumin 3.7 3.5 - 5.0 g/dL NILSA Comment:Testing performed by : [address] [address] Alk phos 102 40 - 130 Units/L NILSA Comment:Testing performed by : [address] [address] ALT 21 7 - 45 Units/L NILSA Comment:Testing performed by : [address] [address] AST 14 10 - 45 Units/L NILSA Comment:Testing performed by : [address] [address] Blood 04/22/2024 8:34 AM CDT 04/22/2024 9:26 AM CDT Cheryl Slater MD LAB BLOOD ORDERABLES Fin al Result Performing Organization Address City/[facility]/ZIP Co de Phone Number NILSA [address] [place] [address] * POCT glucose (04/21/2024 8:34 PM CDT) [facility] Glucose, POC 167 70 - 199 mg/dL Comment:Testing performed by : [address] [address] Glucose comment 1 Use This Result NILSA Comment:Testing performed by : [address] [address] Blood 04/21/2024 8:34 PM CDT 04/21/2024 8:34 PM CDT Cheryl Slater MD LAB POCT ORDERABLES - DE VICE Final Result Performing Organization Address [facility] Co de Phone Number CARLOS ENRIQUE[address] [address] * (ABNORMAL) Hemoglobin and hematocrit (04/21/2024 7:24 PM CDT) [facility] Hgb 10.1(L) 11.9 - 15.5 g/dL Comment:Testing performed by : [address] [address] Hct 30.6(L) 35.6 - 45.5 % NILSA Comment:Testing performed by : [address] [address] Blood 04/21/2024 7:24 PM CDT 04/21/2024 7:28 PM CDT Cheryl Slater MD LAB BLOOD ORDERABLES Fin al Result Performing Organization Address City/[facility]/ZIP Co de Phone Number [address] [place] [address] * POCT glucose (04/21/2024 5:55 PM CDT) Glucose, POC 135 70 - 199 mg/dL Comment:Testing performed by : [facility], [address] [place] [address], [place]., [address] Blood 04/21/2024 5:55 PM CDT 04/21/2024 5:55 PM CDT us Cheryl Slater MD LAB POCT ORDERABLES - DE VICE Final Result NILSA [address] [facility] Department [place] [address] * CT Head WO Contrast (04/21/2024 11:32 AM CDT) Anatomical Region Laterality Modality Head and Neck N/A Computed Tomogra phy 04/21/2024 11:3 6 AM CDT Narrative 04/21/2024 11:38 AM CDT EXAM DESCRIPTION: CT HEAD WO CONTRAST REASON FOR STUDY: Acute altered mental status. Rapid called on this patient. ?? TECHNIQUE: Axial images acquired through the brain without intravenous contrast. ??Images stored on PACS. ?? Automated exposure control was used as a dose optimization technique for this examination. COMPARISON: 04/19/2024. ??Brain MRI 04/20/2024. FINDINGS: BRAIN: ??No acute intraparenchymal hemorrhage, cerebral edema, hydrocephalus, mass, or mass effect. ?? EXTRA-AXIAL SPACES: ??No extra-axial fluid collection or mass. CALVARIUM: ??No acute skull base or calvarial abnormality. ?? Hyperostosis frontalis is noted. SINUSES/MASTOIDS: ??Predominantly clear. ORBITS: ??No significant abnormality. OTHER: ??No other significant abnormality. ?? IMPRESSION: No evidence of an acute intracranial abnormality. THIS IS AN ELECTRONICALLY VERIFIED FINAL REPORT 04/21/2024 11:38 AM - Electronically signed by ??Robert Fay M.D. CH: D: ??04/21/2024 11:38 AM T: ??04/21/2024 11:38 AM Report ID: [id number] Reading Location: ??[id number] Procedure Note Robert Fay Jr., MD - 04/21/2024 EXAM DESCRIPTION: CT HEAD WO CONTRAST REASON FOR STUDY: Acute altered mental status. Rapid called on thispatient. TECHNIQUE: Axial images acquired through the brain without intravenous contrast. Images stored on PACS. Automated exposure control was used asa dose optimization technique for this examination. COMPARISON: 04/19/2024. Brain MRI 04/20/2024. FINDINGS: BRAIN: No acute intraparenchymal hemorrhage, cerebral edema,hydrocephalus, mass, or mass effect. EXTRA-AXIAL SPACES: No extra-axial fluid collection or mass. CALVARIUM: No acute skull base or calvarial abnormality. Hyperostosis frontalis is noted. SINUSES/MASTOIDS: Predominantly clear. ORBITS: No significant abnormality. OTHER: No other significant abnormality. IMPRESSION: No evidence of an acute intracranial abnormality. THIS IS AN ELECTRONICALLY VERIFIED FINAL REPORT 04/21/2024 11:38 AM - Electronically signed by Robert Fay M.D. CH: KECIA Report ID: [id number] Reading Location: [place] [address] Shemar Feliz MD IMG CT PROCEDURES Final Result * (ABNORMAL) POC Blood Gas and Chemistries, Arterial - (04/21/2024 10:46 AM CDT) pH, art POC 7.49(H) 7.35 - 7.45 Comment:Testing performed by : [address] [address] pCO2, art POC 38 35 - 45 mmHg NILSA Comment:Testing performed by : [address] [address] pO2, art POC 91 83 - 108 mmHg NILSA Comment:Testing performed by : [address] [address] HCO3, art (Calc) POC 29 20 - 30 mmol/L NISLA Comment:Testing performed by : [address] [address] Base excess, art POC 5 mmol/L NILSA Comment: Interpretive Data No reference range established. Current interpretive data was last revised 2020. Testing performed by: [facility], [address] [place] [address]., [address] Blood 04/21/2024 10:4 6 AM CDT 04/21/2024 10:46 AM CDT Cheryl Slater MD LAB POCT ORDERABLES - DE VICE Final Result Performing Organization Address [facility] de Phone Number [address] [place] [address] * (ABNORMAL) Troponin T high-sensitivity (04/21/2024 10:43 AM CDT) Trop T hs 60(H) <=14 ng/L Comment: Interpretive Data For further hscTnT resources including the diagnostic algorithm and an aid in interpretation, copy and paste this link: https://nrl.testcatalog.org/show/hsTrop Current Interpretive Data last revised 2020. Testing performed by: [address] [address] Blood 04/21/2024 10:4 3 AM CDT 04/21/2024 10:47 AM CDT Shemar Feliz MD LAB BLOOD ORDERABLES Fi nal Result Performing Organization Address [facility] Co de Phone Number [facility] [address] [facility] Department [place] [address] * Lactate (04/21/2024 10:43 AM CDT) Lactate 1.8 0.7 - 2.0 mmol/L Comment:Testing performed by : [address] [address] Blood 04/21/2024 10:4 3 AM CDT 04/21/2024 10:47 AM CDT us Shemar Feliz MD LAB BLOOD ORDERABLES Fi nal Result Performing Organization Address [facility] de Phone Number NILSA [address] [facility] Department [place] [address] * (ABNORMAL) eGFR (04/21/2024 10:43 AM CDT) [facility] eGFR 21(L) >=60 mL/min/1. 73 m2 Comment: Interpretive Data Reference Interval Normal ?>/= 90 mL/min/1.73m2 Mildly decreased* ? 60 - 89 mL/min/1.73m2 Mildly to moderately decreased ?45 - 59 mL/min/1.73m2 Moderately to severely decreased ??30 - 44 mL/min/1.73m2 Severely decreased ?15 - 29 mL/min/1.73m2 Kidney Failure ?< 15 ??mL/min/1.73m2 *Relative to young adult level Estimated glomerular filtration rate is determined by the 2020 CKD-EPI equation recommended by the National Kidney Foundation (A Unifying Approach to GFR Estimation: Recommendations of the NKF-ASK Task Force on Reassessing the Inclusion of Race in Diagnosing Kidney Disease, JASN 2020). The CKD-EPI equation should not be used for patients with unstable renal function and has not been validated in children and those over 70. Current interpretive data was last reviewed 2021. Testing performed by: [facility], [address] [place] [address]., [address] Blood 04/21/2024 10:4 3 AM CDT 04/21/2024 10:47 AM CDT us Cheryl Slater MD LAB BLOOD ORDERABLES Fin al Result Performing Organization Address City/[facility] Co de Phone Number NILSA [address] [facility] Department [place] [address] * (ABNORMAL) Differential, auto (04/21/2024 10:43 AM CDT) Neutrophil abs 8.1(H) 1.5 - 6.5 K/cumm Comment:Testing performed by : [address] [address] Imm gran abs 0.1 0.0 - 0.1 K/cumm NILSA Comment:Testing performed by : [address] [address] Lymphocyte abs 3.2 0.8 - 3.3 K/cumm NILSA Comment:Testing performed by : [address] [address] Monocyte abs 0.7 0.2 - 0.8 K/cumm NILSA Comment:Testing performed by : [address] [address] Eosinophil abs 0.1 0.0 - 0.5 K/cumm NILSA Comment:Testing performed by : [address] [address] Basophil abs 0.0 0.0 - 0.1 K/cumm NILSA Comment:Testing performed by : [address] [address] Neutrophil pct 66.1 % NILSA Comment: Interpretive Data Percent cell count reference ranges are not reported, since discordance with absolute values may lead to misinterpretation of CBC data. Current Interpretive Data was last revised on 2017. Testing performed by: [address] [address] Imm gran pct 0.6 % NILSA Comment: Interpretive Data Percent cell count reference ranges are not reported, since discordance with absolute values may lead to misinterpretation of CBC data. Current Interpretive Data was last revised on 2017. Testing performed by: [address] [address] Lymphocyte pct 26.4 % NILSA Comment: Interpretive Data Percent cell count reference ranges are not reported, since discordance with absolute values may lead to misinterpretation of CBC data. Current Interpretive Data was last revised on 2017. Testing performed by: [address] [address] Monocyte pct 5.8 % [facility] Comment: Interpretive Data Percent cell count reference ranges are not reported, since discordance with absolute values may lead to misinterpretation of CBC data. Current Interpretive Data was last revised on 2017. Testing performed by: [address] [address] Eosinophil pct 0.9 % [facility] Comment: Interpretive Data Percent cell count reference ranges are not reported, since discordance with absolute values may lead to misinterpretation of CBC data. Current Interpretive Data was last revised on 2017. Testing performed by: [address] [address] Basophil pct 0.2 % [facility] Comment: Interpretive Data Percent cell count reference ranges are not reported, since discordance with absolute values may lead to misinterpretation of CBC data. Current Interpretive Data was last revised on 2017. Testing performed by: [address] [address] Blood 04/21/2024 10:4 3 AM CDT 04/21/2024 10:47 AM CDT Shemar Feliz MD LAB BLOOD ORDERABLES Fi nal Result [facility] [address] [facility] Department of Laboratories [place], [place] [id number] * (ABNORMAL) Pro B-type natriuretic peptide (04/21/2024 10:43 AM CDT) NT-proBNP 881(H) <=300 pg/mL Comment: Interpretive Comments: A. Dyspnea in Acute Care Setting All Ages: ?< 300 pg/ml, acute heart failure unlikely. < 50 yrs: ?300 - 450 pg/ml, further investigation warranted. ? > 450 pg/ml, acute heart failure likely. 50 - 74 yrs: ? 300 - 900 pg/ml, further investigation warranted. ? > 900 pg/ml, acute heart failure likely . > or = 75 yrs: ? 450 - 1800 pg/ml, further investigation warranted. ? > 1800 pg/ml, acute heart failure likely. B. Non-acute Setting < 75 yrs ? < 125 pg/ml, rules out heart failure. ? > or = 125 pg/ml, further investigation warranted. > or = 75 yrs ?< 450 pg/ml, rules out heart failure. ? > or = 450 pg/ml, further investigation warranted. - Knowledge of each individual patient's NT-proBNP range may be more useful than using similar cut-points for every patient. Please note that marked elevations in NT-proBNP levels may be observed in state other than Left Ventricular Congestive Failure, including: acute coronary syndromes, right heart strain/failure (including pulmonary embolism and cor pulmonale), critical illness, renal failure, as well as advanced age. - References: 1. Jordan RUEDA et.al. Eur Heart J. 2006:27:330-337. 2. Melisa RW, Audelia MTZ. J. AM Yonny Cardiol: Cardiovasc Imag. 2009;2: 216- 225. Interpretive Data Last Revised Date: 2018. Testing performed by: [facility], [address] [place] [address]., [address] Blood 04/21/2024 10:4 3 AM CDT 04/21/2024 10:47 AM CDT us Shemar Feliz MD LAB BLOOD ORDERABLES Fi nal Result [facility] [address] [facility] Department [place] [address] * Thyroid Function Dougherty (04/21/2024 10:43 AM CDT) [facility] TSH 2.25 0.30 - 4.20 mcIUnit/mL Comment:Testing performed by : [address] [address] Blood 04/21/2024 10:4 3 AM CDT 04/21/2024 10:47 AM CDT us Shemar Feliz MD LAB BLOOD ORDERABLES Fi nal Result [facility] [address] [facility] Department [place] [address] * (ABNORMAL) CBC with auto differential (04/21/2024 10:43 AM CDT) [facility] WBC 12.2(H) 3.8 - 9.9 K/cumm Comment:Testing performed by : [address] [address] Hgb 9.9(L) 11.9 - 15.5 g/dL NILSA Comment:Testing performed by : [address] [address] Hct 30.0(L) 35.6 - 45.5 % NILSA Comment:Testing performed by : [address] [address] Plt 204 150 - 400 K/cumm NILSA Comment:Testing performed by : [address] [address] MPV 10.7 9.1 - 12.3 fL NILSA Comment:Testing performed by : [address] [address] RBC 3.27(L) 3.90 - 5.20 M/cumm NILSA Comment:Testing performed by : [address] [address] MCV 91.7 81.3 - 96.4 fL NILSA Comment:Testing performed by : [address] [address] MCH 30.3 27.1 - 33.3 pg NILSA RODRIGES Comment:Testing performed by : [address] [address] MCHC 33.0 32.3 - 35.7 g/dL NILSA RODRIGES Comment:Testing performed by : [address], [address] RDW CV 14.4 11.1 - 14.9 % NILSA RODRIGES Comment:Testing performed by : [address], [address] RDW SD 48.4(H) 35.7 - 48.1 fL NILSA RODRIGES Comment:Testing performed by : [address], [address] NRBC abs 0.00 0.00 - 0.01 K/cumm NILSA Comment:Testing performed by : [address], [address] Blood 04/21/2024 10:4 3 AM CDT 04/21/2024 10:47 AM CDT us Shemar Feliz MD LAB BLOOD ORDERABLES Fi nal Result Performing Organization Address City/[facility]/ZIP Co de Phone Number [address] [place] [address] * Hepatitis B Surface Antigen Blood (04/21/2024 10:43 AM CDT) [facility] HepBsAg Nonreactive Nonreactive Blood 04/21/2024 10:4 3 AM CDT 04/21/2024 12:45 PM CDT us Markie Ryan MD LAB MICROBIOLOGY - GENERAL OR DERABLES Final Result Performing Organization Address City/[facility] Co de Phone Number [address] [place] [address] * Magnesium (04/21/2024 10:43 AM CDT) [facility] Magnesium 1.8 1.4 - 2.5 mg/dL Comment:Testing performed by : [address] [address] Blood 04/21/2024 10:4 3 AM CDT 04/21/2024 10:47 AM CDT Cheryl Slater MD LAB BLOOD ORDERABLES Fin al Result [facility] [address] [facility] Department [place] [address] * (ABNORMAL) Hepatic function panel (04/21/2024 10:43 AM CDT) [facility] Bilirubin, total 0.2 0.1 - 1.2 mg/dL Comment:Testing performed by : [address] [address] Bilirubin, direct <0.2 0.1 - 0.3 mg/dL NILSA Comment:Testing performed by : [address] [address] Protein, pl 7.6 6.5 - 8.5 g/dL NILSA Comment:Testing performed by : [address] [address] Albumin 3.9 3.5 - 5.0 g/dL NILSA Comment:Testing performed by : [address] [address] Alk phos 152(H) 40 - 130 Units/L NILSA Comment:Testing performed by : [address] [address] ALT 36 7 - 45 Units/L NILSA Comment:Testing performed by : [address] [address] AST 24 10 - 45 Units/L NILSA Comment:Testing performed by : [address] [address] Blood 04/21/2024 10:4 3 AM CDT 04/21/2024 10:47 AM CDT us Cheryl Slater MD LAB BLOOD ORDERABLES Fin al Result NILSA [address] [facility] Department [place] [address] * (ABNORMAL) Basic metabolic panel (04/21/2024 10:43 AM CDT) Sodium 138 135 - 145 mmol/L Comment:Testing performed by : [address] [address] Potassium, pl 3.5 3.3 - 4.9 mmol/L NILSA Comment:Testing performed by : [address] [address] Chloride 98 97 - 110 mmol/L NILSA Comment:Testing performed by : [address] [address] CO2 28 22 - 32 mmol/L NILSA Comment:Testing performed by : [address] [address] Anion gap 12 2 - 15 mmol/L NILSA Comment:Testing performed by : [address] [address] BUN 30(H) 6 - 25 mg/dL NILSA Comment:Testing performed by : [address] [address] Creatinine 2.40(H) 0.60 - 1.10 mg/dL NILSA Comment:Testing performed by : [address] [address] Glucose 181 70 - 199 mg/dL NILSA Comment: Interpretive Data Fasting glucose >/= 126 mg/dl is diagnostic for diabetes. ?? Fasting is defined as no caloric intake for at least 8 hours. Fasting glucose between 100 mg/dl to 125 mg/dl is diagnostic of prediabetes. In a patient with classic symptoms of hyperglycemia or hyperglycemic crisis, a random glucose >/= 200 mg/dl is diagnostic for diabetes. In the absence of unequivocal hyperglycemia, results should be confirmed by repeat testing. The classification and Diagnosis of Diabetes Diabetes Care 202; 46: S19-S40. Current interpretive data was last revised 2022. Testing performed by: [facility], [address] [place] [address]., [address] Calcium 9.2 8.5 - 10.3 mg/dL NILSA RODRIGES Comment:Testing performed by : [facility], [address] [place] [address]., [address] Blood 04/21/2024 10:4 3 AM CDT 04/21/2024 10:47 AM CDT Cheryl Slater MD LAB BLOOD ORDERABLES Fin al Result NILSA [address] [facility] Department [place] [address] * ECG 12 lead (04/21/2024 10:35 AM CDT) Ventricular Rate EKG/Min 84 BPM [facility] Atrial Rate 84 BPM [facility] [place]-Interval (MSEC) 154 ms [facility] QRS-Interval (MSEC) 68 ms [facility] QT-Interval (MSEC) 410 ms [facility] QTc 484 ms [facility] P [place] 72 degrees [facility] R [place] 0 degrees [facility] T [place] 58 degrees [facility] Diagnosis Normal sinus rhythm Normal ECG When compared with ECG of 19-APR-2024 17:03, No significant change was found Confirmed by DIAMOND DUVALL M.D. ([id number]) on 04/21/2024 11:31:25 PM [facility] 04/21/2024 10:3 5 AM CDT 04/21/2024 11:31 PM CDT Cheryl Slater MD ECG ORDERABLES Final Re sult Performing Organization Address City/[facility]/ZIP Co de Phone Number [facility] * POCT glucose (04/21/2024 10:32 AM CDT) Glucose, POC 168 70 - 199 mg/dL Comment:Testing performed by : [facility], [address] [place] [address]., [address] Blood 04/21/2024 10:3 2 AM CDT 04/21/2024 10:32 AM CDT Cheryl Slater MD LAB POCT ORDERABLES - DE VICE Final Result NILSA [address] [facility] [place] [address] * (ABNORMAL) eGFR (04/21/2024 8:56 AM CDT) eGFR 10(L) >=60 mL/min/1. 73 m2 Comment: Interpretive Data Reference Interval Normal ?>/= 90 mL/min/1.73m2 Mildly decreased* ? 60 - 89 mL/min/1.73m2 Mildly to moderately decreased ?45 - 59 mL/min/1.73m2 Moderately to severely decreased ??30 - 44 mL/min/1.73m2 Severely decreased ?15 - 29 mL/min/1.73m2 Kidney Failure ?< 15 ??mL/min/1.73m2 *Relative to young adult level Estimated glomerular filtration rate is determined by the 2020 CKD-EPI equation recommended by the National Kidney Foundation (A Unifying Approach to GFR Estimation: Recommendations of the NKF-ASK Task Force on Reassessing the Inclusion of Race in Diagnosing Kidney Disease, JASN 2020). The CKD-EPI equation should not be used for patients with unstable renal function and has not been validated in children and those over 70. Current interpretive data was last reviewed 2021. Testing performed by: [facility], [address] [place] [address]., [address] Blood 04/21/2024 8:56 AM CDT 04/21/2024 9:36 AM CDT us Cheryl Slater MD LAB BLOOD ORDERABLES Fin al Result [facility] [address] [facility] [place] [address] * Differential, auto (04/21/2024 8:56 AM CDT) Neutrophil abs 6.2 1.5 - 6.5 K/cumm Comment:Testing performed by : [address] [address] Imm gran abs 0.0 0.0 - 0.1 K/cumm NILSA Comment:Testing performed by : [address] [address] Lymphocyte abs 2.2 0.8 - 3.3 K/cumm NILSA Comment:Testing performed by : [address] [address] Monocyte abs 0.6 0.2 - 0.8 K/cumm NILSA Comment:Testing performed by : [address] [address] Eosinophil abs 0.1 0.0 - 0.5 K/cumm [facility] Comment:Testing performed by : [address] [address] Basophil abs 0.0 0.0 - 0.1 K/cumm [facility] Comment:Testing performed by : [address] [address] Neutrophil pct 67.9 % [facility] Comment: Interpretive Data Percent cell count reference ranges are not reported, since discordance with absolute values may lead to misinterpretation of CBC data. Current Interpretive Data was last revised on 2017. Testing performed by: [address] [address] Imm gran pct 0.4 % NILSA Comment: Interpretive Data Percent cell count reference ranges are not reported, since discordance with absolute values may lead to misinterpretation of CBC data. Current Interpretive Data was last revised on 2017. Testing performed by: [address] [address] Lymphocyte pct 24.5 % CERNER Comment: Interpretive Data Percent cell count reference ranges are not reported, since discordance with absolute values may lead to misinterpretation of CBC data. Current Interpretive Data was last revised on 2017. Testing performed by: [address] [address] Monocyte pct 6.0 % NILSA Comment: Interpretive Data Percent cell count reference ranges are not reported, since discordance with absolute values may lead to misinterpretation of CBC data. Current Interpretive Data was last revised on 2017. Testing performed by: [address] [address] Eosinophil pct 1.0 % NILSA Comment: Interpretive Data Percent cell count reference ranges are not reported, since discordance with absolute values may lead to misinterpretation of CBC data. Current Interpretive Data was last revised on 2017. Testing performed by: [address] [address] Basophil pct 0.2 % NILSA Comment: Interpretive Data Percent cell count reference ranges are not reported, since discordance with absolute values may lead to misinterpretation of CBC data. Current Interpretive Data was last revised on 2017. Testing performed by: [address] [address] Blood 04/21/2024 8:56 AM CDT 04/21/2024 9:36 AM CDT Cheryl Slater MD LAB BLOOD ORDERABLES Fin al Result [facility] [address] [facility] Department of Laboratories [place], [place] [id number] * (ABNORMAL) CBC with auto differential (04/21/2024 8:56 AM CDT) [facility] WBC 9.1 3.8 - 9.9 K/cumm Comment:Testing performed by : [address] [address] Hgb 9.3(L) 11.9 - 15.5 g/dL NILSA Comment:Testing performed by : [address] [address] Hct 27.8(L) 35.6 - 45.5 % NILSA Comment:Testing performed by : [address] [address] Plt 199 150 - 400 K/cumm NILSA Comment:Testing performed by : [address] [address] MPV 10.7 9.1 - 12.3 fL NILSA Comment:Testing performed by : [address] [address] RBC 2.98(L) 3.90 - 5.20 M/cumm NILSA Comment:Testing performed by : [address] [address] MCV 93.3 81.3 - 96.4 fL NILSA Comment:Testing performed by : [address] [address] MCH 31.2 27.1 - 33.3 pg NILSA Comment:Testing performed by : [address] [address] MCHC 33.5 32.3 - 35.7 g/dL NILSA Comment:Testing performed by : [address], [address] RDW CV 14.4 11.1 - 14.9 % NILSA Comment:Testing performed by : [address], [address] RDW SD 49.0(H) 35.7 - 48.1 fL NILSA Comment:Testing performed by : [address] [address] NRBC abs 0.00 0.00 - 0.01 K/cumm NILSA Comment:Testing performed by : [address] [address] Blood 04/21/2024 8:56 AM CDT 04/21/2024 9:36 AM CDT Cheryl Slater MD LAB BLOOD ORDERABLES Fin al Result NILSA [address] [facility] Department [place] [address] * (ABNORMAL) Comprehensive metabolic panel (04/21/2024 8:56 AM CDT) Sodium 139 135 - 145 mmol/L Comment:Testing performed by : [address] [address] Potassium, pl 5.0(H) 3.3 - 4.9 mmol/L NILSA Comment:Testing performed by : [address] [address] Chloride 101 97 - 110 mmol/L NILSA Comment:Testing performed by : [address] [address] CO2 25 22 - 32 mmol/L NILSA Comment:Testing performed by : [address] [address] Anion gap 13 2 - 15 mmol/L NILSA Comment:Testing performed by : [address] [address] BUN 65(H) 6 - 25 mg/dL NILSA Comment:Testing performed by : [address] [address] Creatinine 4.60(H) 0.60 - 1.10 mg/dL NILSA Comment:Testing performed by : [address] [address] Glucose 163 70 - 199 mg/dL NILSA Comment: Interpretive Data Fasting glucose >/= 126 mg/dl is diagnostic for diabetes. ?? Fasting is defined as no caloric intake for at least 8 hours. Fasting glucose between 100 mg/dl to 125 mg/dl is diagnostic of prediabetes. In a patient with classic symptoms of hyperglycemia or hyperglycemic crisis, a random glucose >/= 200 mg/dl is diagnostic for diabetes. In the absence of unequivocal hyperglycemia, results should be confirmed by repeat testing. The classification and Diagnosis of Diabetes Diabetes Care 202; 46: S19-S40. Current interpretive data was last revised 2022. Testing performed by: [address] [place]., [address] Calcium 9.3 8.5 - 10.3 mg/dL NILSA Comment:Testing performed by : [address] [address] Bilirubin, total <0.2 0.1 - 1.2 mg/dL NILSA Comment:Testing performed by : [address], [place]., [address] Protein, pl 6.7 6.5 - 8.5 g/dL NILSA Comment:Testing performed by : [address] [address] Albumin 3.6 3.5 - 5.0 g/dL NILSA Comment:Testing performed by : [address] [address] Alk phos 137(H) 40 - 130 Units/L NILSA Comment:Testing performed by : [address] [address] ALT 32 7 - 45 Units/L NILSA Comment:Testing performed by : [address] [address] AST 19 10 - 45 Units/L NILSA Comment:Testing performed by : [address] [address] Blood 04/21/2024 8:56 AM CDT 04/21/2024 9:36 AM CDT Cheryl Slater MD LAB BLOOD ORDERABLES Fin al Result [facility] [address] [facility] Department of Laboratories [place], [place] [id number] * POCT glucose (04/21/2024 7:51 AM CDT) [facility] Glucose, POC 193 70 - 199 mg/dL Comment:Testing performed by : [address] [address] Glucose comment 1 Use This Result NILSA Comment:Testing performed by : [address] [address] Glucose comment 2 RN/MD Notified NILSA Comment:Testing performed by : [address] [address] Blood 04/21/2024 7:51 AM CDT 04/21/2024 7:51 AM CDT Cheryl Slater MD LAB POCT ORDERABLES - DE VICE Final Result Performing Organization Address City/[facility]/ZIP Co de Phone Number NILSA [address] [place] [address] * (ABNORMAL) POCT glucose (04/20/2024 8:18 PM CDT) Glucose, POC 209(H) 70 - 199 mg/dL Comment:Testing performed by : [address] [address] Glucose comment 1 Use This Result NILSA Comment:Testing performed by : [address] [address] Blood 04/20/2024 8:18 PM CDT 04/20/2024 8:18 PM CDT Cheryl Slater MD LAB POCT ORDERABLES - DE VICE Final Result Performing Organization Address [facility] Co de Phone Number NILSA [address] [place] [address] * (ABNORMAL) POCT glucose (04/20/2024 4:47 PM CDT) Glucose, POC 204(H) 70 - 199 mg/dL Comment:Testing performed by : [address] [address] Blood 04/20/2024 4:47 PM CDT 04/20/2024 4:47 PM CDT Cheryl Slater MD LAB POCT ORDERABLES - DE VICE Final Result NILSA [address] [place] [address] * MRI Brain WO Contrast (04/20/2024 2:47 PM CDT) Anatomical Region Laterality Modality Head and Neck N/A Magnetic Resonan ce 04/20/2024 3:19 PM CDT Narrative 04/20/2024 3:26 PM CDT EXAM DESCRIPTION: ?? MRI BRAIN WO CONTRAST REASON FOR STUDY: ?? Mental status change, unknown cause, TIA Vs. CVA, ??ESRD on HD, diabetic, dementia, Lewe Body Dementia ? Mental status change, unknown cause; TIA Vs. CVA, ??ESRD on HD, diabetic, dementia, Lewe Body Dementia ? TECHNIQUE: Multiplanar imaging includes non-contrasted T1, T2, FLAIR, and diffusion with ADC map sequences. Additional sequence(s) sensitive to blood products. Images stored on PACS. ? COMPARISON: Multiple previous CT head examinations with the most recent dated 04/19/2024. ??MRI brain dated 10/30/2023. FINDINGS: No diffusion restriction to suggest acute/recent infarction. There is no definite parenchymal susceptibility signal to indicate blood degradation products within the confines of the motion limited GRE sequence. There is mild diffuse parenchymal volume loss. ??No hydrocephalus. ??The basilar cisterns are maintained. The right thalamic chronic lacunar infarction is new when compared to the previous MRI brain dated 10/30/2023. ??Additional small chronic infarctions in the bilateral morris radiata, basal ganglia and left thalamus as seen previously. ??Elsewhere the subcortical and periventricular white matter T2/FLAIR hyperintense signal in the bilateral cerebral hemispheres is nonspecific but compatible with chronic microvascular ischemic type change in a patient of this age. ??More pronounced T2/FLAIR hyperintense signal in the chago is also similar and could be more severe chronic microvascular ischemic type process. Previous bilateral cataract eye surgeries. ??The imaged paranasal sinuses are predominantly clear. ??Bilateral mastoid T2 hyperintense fluid signal. IMPRESSION: ?? 1. ?? No acute/recent infarction. 2. ?? Right thalamic chronic lacunar infarction is new when compared to the previous MRI dated 10/30/2023. 3. ?? Additional chronic infarctions, chronic microvascular ischemic white matter changes and other findings as above. THIS IS AN ELECTRONICALLY VERIFIED FINAL REPORT 04/20/2024 3:26 PM - Electronically signed by ??Jose Duvall D.O. AP: CLEMENTE D: ??04/20/2024 3:26 PM T: ??04/20/2024 3:26 PM Report ID: [id number] Reading Location: ??[id number] Procedure Note Jose Duvall, DO - 04/20/2024 EXAM DESCRIPTION: MRI BRAIN WO CONTRAST REASON FOR STUDY: Mental status change, unknown cause, TIA Vs. CVA,ESRD on HD, diabetic, dementia, Lewe Body Dementia ??? Mental status change, unknown cause; TIA Vs. CVA, ESRD on HD, diabetic, dementia, Lewe Body Dementia ??? TECHNIQUE: Multiplanar imaging includes non-contrasted T1, T2, FLAIR, and diffusion with ADC map sequences. Additional sequence(s) sensitive Zingaya. Images stored on PACS. COMPARISON: Multiple previous CT head examinations with the most recentdated 04/19/2024. MRI brain dated 10/30/2023. FINDINGS: No diffusion restriction to suggest acute/recent infarction. There is no definite parenchymal susceptibility signal to indicate blood degradation products within the confines of the motion limited GREsequence. There is mild diffuse parenchymal volume loss. No hydrocephalus. Thebasilar cisterns are maintained. The right thalamic chronic lacunar infarction is new when compared to the previous MRI brain dated 10/30/2023. Additional small chronic infarctionsin the bilateral morris radiata, basal ganglia and left thalamus as seen previously. Elsewhere the subcortical and periventricular white matter T2/FLAIR hyperintense signal in the bilateral cerebral hemispheres is nonspecific but compatible with chronic microvascular ischemic type changein a patient of this age. More pronounced T2/FLAIR hyperintense signal inthe chago is also similar and could be more severe chronic microvascularischemic type process. Previous bilateral cataract eye surgeries. The imaged paranasal sinusesare predominantly clear. Bilateral mastoid T2 hyperintense fluid signal. IMPRESSION: 1. No acute/recent infarction. 2. Right thalamic chronic lacunar infarction is new when compared to the previous MRI dated 10/30/2023. 3. Additional chronic infarctions, chronic microvascular ischemic white matter changes and other findings as above. THIS IS AN ELECTRONICALLY VERIFIED FINAL REPORT 04/20/2024 3:26 PM - Electronically signed by Jose Duvall D.O. AP: CLEMENTE Report ID: [id number] Reading Location: [place] [address] Cheryl Slater MD IMG MRI PROCEDURES Final Result * POCT glucose (04/20/2024 12:17 PM CDT) Glucose, POC 196 70 - 199 mg/dL Comment:Testing performed by : [address] [address] Blood 04/20/2024 12:1 7 PM CDT 04/20/2024 12:17 PM CDT Cheryl Slater MD LAB POCT ORDERABLES - DE VICE Final Result Performing Organization Address City/[facility]/ZIP Co de Phone Number CARLOS ENRIQUE[address] [place] [employer] [place] [address] * Ammonia (04/20/2024 8:53 AM CDT) Ammonia 26 <=50 mcmol/L Comment: Please note on 2023 the unit of measure changed from mcg/dL to mcmol/L. Current Interpretive Data was last revised on 2023. Testing performed by: [address] [address] Blood 04/20/2024 8:53 AM CDT 04/20/2024 9:00 AM CDT Cheryl Slater MD LAB BLOOD ORDERABLES Fin al Result [facility]ILAS [facility] [place] [employer] [place] [address] * POCT glucose (04/20/2024 8:30 AM CDT) Pathologist [facility] Glucose, POC 119 70 - 199 mg/dL Comment:Testing performed by : [facility], [address] [place] [address]., [address] Blood 04/20/2024 8:30 AM CDT 04/20/2024 8:30 AM CDT us Cheryl Slater MD LAB POCT ORDERABLES - DE VICE Final Result NILSA [address] [facility] Department [place] [address] * (ABNORMAL) eGFR (04/20/2024 7:55 AM CDT) Pathologist [facility] eGFR 15(L) >=60 mL/min/1. 73 m2 Comment: Interpretive Data Reference Interval Normal ?>/= 90 mL/min/1.73m2 Mildly decreased* ? 60 - 89 mL/min/1.73m2 Mildly to moderately decreased ?45 - 59 mL/min/1.73m2 Moderately to severely decreased ??30 - 44 mL/min/1.73m2 Severely decreased ?15 - 29 mL/min/1.73m2 Kidney Failure ?< 15 ??mL/min/1.73m2 *Relative to young adult level Estimated glomerular filtration rate is determined by the 2020 CKD-EPI equation recommended by the National Kid[employer] (A Unifying Approach to GFR Estimation: Recommendations of the NKF-ASK Task Force on Reassessing the Inclusion of Race in Diagnosing Kidney Disease, JASN 2020). The CKD-EPI equation should not be used for patients with unstable renal function and has not been validated in children and those over 70. Current interpretive data was last reviewed 2021. Testing performed by: [address] [address] Blood 04/20/2024 7:55 AM CDT 04/20/2024 8:17 AM CDT Mir Dial DO LAB BLOOD OR DERABLES Final Result [facility] [address] [facility] Department [place] [address] * (ABNORMAL) Differential, auto (04/20/2024 7:55 AM CDT) Neutrophil abs 7.5(H) 1.5 - 6.5 K/cumm Comment:Testing performed by : [address] [address] Imm gran abs 0.0 0.0 - 0.1 K/cumm NILSA Comment:Testing performed by : [address] [address] Lymphocyte abs 2.2 0.8 - 3.3 K/cumm NILSA Comment:Testing performed by : [address] [address] Monocyte abs 0.6 0.2 - 0.8 K/cumm NILSA Comment:Testing performed by : [address] [address] Eosinophil abs 0.1 0.0 - 0.5 K/cumm NILSA Comment:Testing performed by : [address] [address] Basophil abs 0.0 0.0 - 0.1 K/cumm NILSA Comment:Testing performed by : [address] [address] Neutrophil pct 72.3 % NILSA Comment: Interpretive Data Percent cell count reference ranges are not reported, since discordance with absolute values may lead to misinterpretation of CBC data. Current Interpretive Data was last revised on 2017. Testing performed by: [address] [address] Imm gran pct 0.3 % [facility] Comment: Interpretive Data Percent cell count reference ranges are not reported, since discordance with absolute values may lead to misinterpretation of CBC data. Current Interpretive Data was last revised on 2017. Testing performed by: [address] [address] Lymphocyte pct 21.0 % [facility] Comment: Interpretive Data Percent cell count reference ranges are not reported, since discordance with absolute values may lead to misinterpretation of CBC data. Current Interpretive Data was last revised on 2017. Testing performed by: [address] [address] Monocyte pct 5.6 % [facility] Comment: Interpretive Data Percent cell count reference ranges are not reported, since discordance with absolute values may lead to misinterpretation of CBC data. Current Interpretive Data was last revised on 2017. Testing performed by: [address] [address] Eosinophil pct 0.6 % [facility] Comment: Interpretive Data Percent cell count reference ranges are not reported, since discordance with absolute values may lead to misinterpretation of CBC data. Current Interpretive Data was last revised on 2017. Testing performed by: [address] [address] Basophil pct 0.2 % [facility] Comment: Interpretive Data Percent cell count reference ranges are not reported, since discordance with absolute values may lead to misinterpretation of CBC data. Current Interpretive Data was last revised on 2017. Testing performed by: [address] [address] Blood 04/20/2024 7:55 AM CDT 04/20/2024 8:17 AM CDT Mir Dial DO LAB BLOOD OR DERABLES Final Result NILSA RODRIGES [address] [facility] Department [place] [address] * (ABNORMAL) CBC with auto differential (04/20/2024 7:55 AM CDT) [facility] WBC 10.3(H) 3.8 - 9.9 K/cumm Comment:Testing performed by : [address] [address] Hgb 9.7(L) 11.9 - 15.5 g/dL NILSA Comment:Testing performed by : [address] [address] Hct 29.9(L) 35.6 - 45.5 % NILSA Comment:Testing performed by : [address], [address] Plt 207 150 - 400 K/cumm NILSA Comment:Testing performed by : [address], [address] MPV 10.7 9.1 - 12.3 fL NILSA Comment:Testing performed by : [address], [address] RBC 3.20(L) 3.90 - 5.20 M/cumm NILSA Comment:Testing performed by : [address], [address] MCV 93.4 81.3 - 96.4 fL NILSA Comment:Testing performed by : [address], [address] MCH 30.3 27.1 - 33.3 pg CERELLEN Comment:Testing performed by : [address], [address] MCHC 32.4 32.3 - 35.7 g/dL NILSA Comment:Testing performed by : [address], [address] RDW CV 14.5 11.1 - 14.9 % NILSA Comment:Testing performed by : [address], [address] RDW SD 49.1(H) 35.7 - 48.1 fL NILSA Comment:Testing performed by : [address], [address] NRBC abs 0.00 0.00 - 0.01 K/cumm NILSA Comment:Testing performed by : [address] [address] Blood 04/20/2024 7:55 AM CDT 04/20/2024 8:17 AM CDT Mir Dial DO LAB BLOOD OR DERABLES Final Result [facility] [address] [facility] Department [place] [address] * (ABNORMAL) Comprehensive metabolic panel (04/20/2024 7:55 AM CDT) Sodium 140 135 - 145 mmol/L Comment:Testing performed by : [address] [address] Potassium, pl 4.6 3.3 - 4.9 mmol/L NILSA Comment:Testing performed by : [address] [address] Chloride 103 97 - 110 mmol/L NILSA Comment:Testing performed by : [address] [address] CO2 25 22 - 32 mmol/L NILSA Comment:Testing performed by : [address] [address] Anion gap 12 2 - 15 mmol/L NILSA Comment:Testing performed by : [address] [address] BUN 34(H) 6 - 25 mg/dL NILSA Comment:Testing performed by : [address] [address] Creatinine 3.20(H) 0.60 - 1.10 mg/dL NILSA Comment:Testing performed by : [address] [address] Glucose 115 70 - 199 mg/dL NILSA Comment: Interpretive Data Fasting glucose >/= 126 mg/dl is diagnostic for diabetes. ?? Fasting is defined as no caloric intake for at least 8 hours. Fasting glucose between 100 mg/dl to 125 mg/dl is diagnostic of prediabetes. In a patient with classic symptoms of hyperglycemia or hyperglycemic crisis, a random glucose >/= 200 mg/dl is diagnostic for diabetes. In the absence of unequivocal hyperglycemia, results should be confirmed by repeat testing. The classification and Diagnosis of Diabetes Diabetes Care 202; 46: S19-S40. Current interpretive data was last revised 2022. Testing performed by: [address] [address] Calcium 9.4 8.5 - 10.3 mg/dL NILSA Comment:Testing performed by : [address] [address] Bilirubin, total 0.2 0.1 - 1.2 mg/dL NILSA Comment:Testing performed by : [address] [address] Protein, pl 7.0 6.5 - 8.5 g/dL NILSA Comment:Testing performed by : [address] [address] Albumin 3.6 3.5 - 5.0 g/dL NILSA Comment:Testing performed by : [address] [address] Alk phos 106 40 - 130 Units/L NILSA Comment:Testing performed by : [address] [address] ALT 35 7 - 45 Units/L NILSA Comment:Testing performed by : [address] [address] AST 18 10 - 45 Units/L NILSA Comment:Testing performed by : [address] [address] Blood 04/20/2024 7:55 AM CDT 04/20/2024 8:17 AM CDT Mir Dial DO LAB BLOOD OR DERABLES Final Result NILSA RODRIGES [address] [facility] Department [place] [address] * Influenza A/B, RSV, and COVID-19 PCR Nasopharyngeal (04/19/2024 10:53 PM CDT) COVID-19 RNA Negative Negative Comment:Testing performed by : [address] [address] Influenza A RNA Negative Negative NILSA Comment:Testing performed by : [address] [address] Influenza B RNA Negative Negative [facility] Comment:Testing performed by : [address] [address] RSV RNA Negative Negative [facility] Comment: Interpretive data: Testing performed by [facility]. This test is performed using the [employer] Xpert Xpress CoV-2/Flu/RSV plus assay. This is a multiplex, real-time reverse transcriptase PCR assay intended for the qualitative detection of nucleic acid from SARS-CoV-2, influenza A, influenza B, and respiratory syncytial virus. This assay has been cleared by the [place] Food and Drug administration. The performance characteristics have been verified by the [facility]. ??Results must be considered in the clinical context, and a negative result does not rule out infection. Interpretive Data last revised 2023 Testing performed by: [address] [address] Nasopharyngeal 04/19/2024 10 :53 PM CDT 04/19/2024 10:59 PM CDT Narrative NILSA - 04/20/2024 12:43 AM CDT Is the Patient experiencing symptoms consistent with COVID?->Unknown Mir Dial DO LAB MICROBIOLOGY - GENERAL ORDERABLES Final Result NILSA [address] [facility] [place] [address] * Blood culture Blood (04/19/2024 10:53 PM CDT) Report Final Report: No growth Comment:Testing performed by : [facility], [address] [facility], [place]., [address] Blood 04/19/2024 10:5 3 PM CDT 04/20/2024 3:27 AM CDT Narrative INLSA - 04/24/2024 7:01 AM RECREATION THERAPY AIDE Collection->Peripheral 1. ?Blood cultures are incubated for 4 days on a continuously monitored blood culture system. The first report of a negative culture is issued within 24 hours of receipt of the specimen in the laboratory. 2. ?Positive culture results are reported as soon as they are detected. 3. ?The most important factor for detection of microbes in the setting of bloodstream infection is the volume of blood submitted for culture. Failure to collect an optimal blood volume can result in false negative blood cultures. For pediatric patients, the recommended blood volume to collect is 1 mL of blood per year of patient age (up to 20 mL) per blood culture set. For adult patients, 20 mL of blood, divided equally between aerobic and anaerobic blood culture bottles, is recommended for each blood culture set. 4. ?For blood cultures with Gram-positive cocci, a rapid molecular test for organism identification may be performed using the [employer] Gram-Positive Blood Culture Assay. This assay detects microbial DNA in positive blood culture broth via hybridization of target DNA to capture oligonucleotides on a microarray. This assay has been cleared by the [place] Food and Drug Administration and its performance characteristics have been verified by the [facility]. 5. ?For questions about this culture, contact the Microbiology Laboratory at [phone]. Interpretive data was last revised on 2019. Mir Dial DO LAB MICROBIOLOGY - GENERAL ORDERABLES Final Result NILSA [address] [facility] [place] [address] * Blood culture Blood (04/19/2024 10:53 PM CDT) Report Final Report: No growth Comment:Testing performed by : [facility], [address] [place]., [address] Blood 04/19/2024 10:5 3 PM CDT 04/20/2024 3:27 AM CDT Narrative NILSA - 04/24/2024 7:01 AM RECREATION THERAPY AIDE Collection->Peripheral 1. ?Blood cultures are incubated for 4 days on a continuously monitored blood culture system. The first report of a negative culture is issued within 24 hours of receipt of the specimen in the laboratory. 2. ?Positive culture results are reported as soon as they are detected. 3. ?The most important factor for detection of microbes in the setting of bloodstream infection is the volume of blood submitted for culture. Failure to collect an optimal blood volume can result in false negative blood cultures. For pediatric patients, the recommended blood volume to collect is 1 mL of blood per year of patient age (up to 20 mL) per blood culture set. For adult patients, 20 mL of blood, divided equally between aerobic and anaerobic blood culture bottles, is recommended for each blood culture set. 4. ?For blood cultures with Gram-positive cocci, a rapid molecular test for organism identification may be performed using the MiniVaxigene Gram-Positive Blood Culture Assay. This assay detects microbial DNA in positive blood culture broth via hybridization of target DNA to capture oligonucleotides on a microarray. This assay has been cleared by the [place] Food and Drug Administration and its performance characteristics have been verified by the [facility] Microbiology Laboratory. 5. ?For questions about this culture, contact the Microbiology Laboratory at [phone]. Interpretive data was last revised on 2019. Mir Dial DO LAB MICROBIOLOGY - GENERAL ORDERABLES Final Result NILSA RODRIGES [address] [facility] Department [place] [address] * POCT glucose (04/19/2024 7:16 PM CDT) [facility] Signature Glucose, POC 99 70 - 199 mg/dL Comment:Testing performed by : [address] [address] Glucose comment 1 Use This Result NILSA RODRIGES Comment:Testing performed by : [facility], [address] [place] [address]., [address] Blood 04/19/2024 7:16 PM CDT 04/19/2024 7:16 PM CDT us Wally Linn Jr., MD LAB POCT ORDERABLES - D EVICE Final Result NILSA [address] [facility] Department [place] [address] * XR Chest 1 Vw Portable (04/19/2024 6:41 PM CDT) Anatomical Region Laterality Modality Body, Chest N/A Computed Radiogr aphy 04/19/2024 7:39 PM CDT Narrative 04/19/2024 7:40 PM CDT EXAM DESCRIPTION: XR CHEST 1 VIEW REASON FOR STUDY: general weakness ?? Pt presents to ED via EMS from dialysis. Per daughter at bedside pt is able to make conversation but is Ax0x1 at baseline r/t dementia. Pt at this time will not follow commands, she will state her name is homer, and will say yes or no to questions. BG 98 ?? for EMS. Daughter states that pt started dialysis at 1200 today and gradually became more lethargic and not responsive. ? TECHNIQUE: ??Portable upright AP view of the chest. COMPARISON: 02/09/2024 FINDINGS: LUNGS AND PLEURA: ??No focal opacity, large effusion, or pneumothorax identified. HEART/MEDIASTINUM: ??Trachea midline. ?? Cardiac silhouette normal in size. Mediastinal contours appear normal. BONES: ??Shoulder arthritis. ?? CHEST WALL: ??Unremarkable. ?? UPPER ABDOMEN: ??Unremarkable. ?? IMPRESSION: No acute abnormality identified within limits of low inspiratory volume portable technique. ??Lung bases obscured. ?? THIS IS AN ELECTRONICALLY VERIFIED FINAL REPORT 04/19/2024 7:40 PM - Electronically signed by ??Mir Brooke M.D. AR: KATHARINE D: ??04/19/2024 7:40 PM T: ??04/19/2024 7:40 PM Report ID: [id number] Reading Location: ??[id number] Procedure Note Mir Brooke MD - 04/19/2024 EXAM DESCRIPTION: XR CHEST 1 VIEW REASON FOR STUDY: general weakness Pt presents to ED via EMS from dialysis. Per daughter at bedside pt isable to make conversation but is Ax0x1 at baseline r/t dementia. Pt at this timewill not follow commands, she will state her name is homer, and will say yes orno to questions. BG 98 for EMS. Daughter states that pt started dialysis at 1200 today and gradually became more lethargic and not responsive. TECHNIQUE: Portable upright AP view of the chest. COMPARISON: 02/09/2024 FINDINGS: LUNGS AND PLEURA: No focal opacity, large effusion, orpneumothorax identified. HEART/MEDIASTINUM: Trachea midline. Cardiac silhouette normal in size. Mediastinal contours appear normal. BONES: Shoulder arthritis. CHEST WALL: Unremarkable. UPPER ABDOMEN: Unremarkable. IMPRESSION: No acute abnormality identified within limits of lowinspiratory volume portable technique. Lung bases obscured. THIS IS AN ELECTRONICALLY VERIFIED FINAL REPORT 04/19/2024 7:40 PM - Electronically signed by Mir Brooke M.D. AR: KATHARINE Report ID: [id number] Reading Location: [place] [address] us Rehab Kyle YOUNG IMG XR PROCEDURES Final Result * (ABNORMAL) Troponin T high-sensitivity 2-hour (04/19/2024 6:27 PM CDT) Trop T hs 63(H) <=14 ng/L Comment: Ref Range High Interpretive Data For further hscTnT resources including the diagnostic algorithm and an aid in interpretation, copy and paste this link: https://nrl.testcatalog.org/show/hsTrop Current Interpretive Data last revised 2020. Testing performed by: [address] [address] Trop T hs delta See Comment ng/L NILSA RODRIGES Comment: Inappropriate collection time to report a delta. Testing performed by: [address] [address] Trop T hs pct delta See Comment % NILSA RODRIGES Comment: Inappropriate collection time to report a delta. Testing performed by: [address] [address] Trop T hs interp See Comment NILSA RODRIGES Comment: Inappropriate collection time to report a delta. Testing performed by: [address] [address] Blood 04/19/2024 6:27 PM CDT 04/19/2024 6:32 PM CDT Rehab Kyle YOUNG LAB BLOOD ORDERABLES Final Resu lt Performing Organization Address [facility] de Phone Number NILSA [address] [place] [address] * Ammonia (04/19/2024 6:27 PM CDT) Ammonia 19 <=50 mcmol/L Comment: Please note on 2023 the unit of measure changed from mcg/dL to mcmol/L. Current Interpretive Data was last revised on 2023. Testing performed by: [address] [address] Blood 04/19/2024 6:27 PM CDT 04/19/2024 6:32 PM CDT Rehab Kyle YOUNG LAB BLOOD ORDERABLES Final Resu lt Performing Organization Address [facility] de Phone Number NILSA [address] [place] [address] * (ABNORMAL) Urinalysis reflex to microscopic and culture Urine (04/19/2024 5:20 PM CDT) Color, ur Yellow Yellow Comment:Testing performed by : [address] [address] Clarity, ur Clear Clear NILSA RODRIGES Comment:Testing performed by : [address] [address] Specific gravity, ur 1.011 1.003 - 1.030 NILSA RODRIGES Comment:Testing performed by : [address] [address] pH, urine 7.0 NILSA RODRIGES Comment: Interpretive Data ? Urine pH is affected by diet, medications, systemic acid-base disturbances, and renal tubular function. ??pH may affect urinary stone formation. ??For example, urine pH below 6.0 may help reduce the tendency for calcium phosphate stones and pH greater than 6.0 may reduce the tendency for uric acid stone formation. Source: [facility] [employer] Current Interpretive Data was last revised on 2017 Testing performed by: [facility], [address] [place] [address], [place]., [address] Protein, ur ql 2+(A) Negative NILSA Comment:Testing performed by : [facility], [address] [place] [address], [place]., [address] Glucose, ur ql Trace(A) Negative NILSA Comment:Testing performed by : [address], [place]., [address] Ketones, ur Negative Negative NILSA Comment:Testing performed by : [address], [place]., [address] Bilirubin, ur Negative Negative NILSA Comment:Testing performed by : [address], [place]., [address] Blood, ur Negative Negative NILSA Comment:Testing performed by : [facility], [address] [place] [address], [place]., [address] Urobilinogen, ur <2.0 <2.0 mg/dL NILSA Comment:Testing performed by : [address], [place]., [address] Nitrite, ur Negative Negative NILSA Comment:Testing performed by : [address], [place]., [address] Leukocyte esterase, ur Negative Negative NILSA Comment:Testing performed by : [address], [place]., [address] UA reflex comment Reflex to microscopic UA will be performed. NILSA Comment:Testing performed by : [address], [place]., [address] Urine 04/19/2024 5:20 PM CDT 04/19/2024 5:22 PM CDT us Rehab Kyle YOUNG LAB MICROBIOLOGY - GENERAL FREDDY HALEY Final Result NILSA [address] [facility] Department [place] [address] * (ABNORMAL) Urinalysis, microscopic only (04/19/2024 5:20 PM CDT) Pathologist [facility] WBC, ur 0-5 0 - 5 /HPF Comment:Testing performed by : [facility], [address] [place] [address]., [address] RBC, ur 3-5(A) 0 - 2 /HPF NILSA Comment:Testing performed by : [facility], [address] [place] [address]., [address] Mucous, ur Present(A) NILSA Comment:Testing performed by : [address] [address] Culture Reflex Comment Reflex conditions for urine culture (WBC >10) not met. NLISA Comment:Testing performed by : [address] [address] Urine 04/19/2024 5:20 PM CDT 04/19/2024 5:22 PM CDT us Rehab Kyle YOUNG LAB URINE ORDERABLES Final Resu lt NILSA [facility] Department [place] [address] * ECG 12 lead (04/19/2024 5:03 PM CDT) Pathologist [facility] Ventricular Rate EKG/Min 77 BPM [facility] Atrial Rate 77 BPM [facility] WV-Interval (MSEC) 150 ms [facility] QRS-Interval (MSEC) 74 ms [facility] QT-Interval (MSEC) 402 ms [facility] QTc 454 ms [facility] P [place] 72 degrees [facility] R [place] 11 degrees [facility] T [place] 43 degrees [facility] Diagnosis Normal sinus rhythm Normal ECG When compared with ECG of 31-JAN-2024 11:06, No significant change was found Confirmed by SENG WOODS M.D. ([id number]) on 04/21/2024 9:54:07 AM [facility] 04/19/2024 5:03 PM CDT 04/21/2024 9:54 AM CDT Rehab Kyle YOUNG ECG ORDERABLES Final Result Performing Organization Address [facility] Co de Phone Number [facility] * (ABNORMAL) Troponin T high-sensitivity series (baseline, 2hr, 4hr, 6hr) (04/19/2024 4:57 PM CDT) Trop T hs 65(H) <=14 ng/L Comment: Ref Range High Interpretive Data For further hscTnT resources including the diagnostic algorithm and an aid in interpretation, copy and paste this link: https://nrl.testcatalog.org/show/hsTrop Current Interpretive Data last revised 2020. Testing performed by: [facility], [address] [place] [address]., [address] Blood 04/19/2024 4:57 PM CDT 04/19/2024 5:02 PM CDT Chris Wright MD LAB BLOOD ORDERABLES Edited Res ult - Final Performing Organization Address City/[facility] de Phone Number NILSA [address] [facility] Department [place] [address] * (ABNORMAL) eGFR (04/19/2024 4:57 PM CDT) eGFR 22(L) >=60 mL/min/1. 73 m2 Comment: Interpretive Data Reference Interval Normal ?>/= 90 mL/min/1.73m2 Mildly decreased* ? 60 - 89 mL/min/1.73m2 Mildly to moderately decreased ?45 - 59 mL/min/1.73m2 Moderately to severely decreased ??30 - 44 mL/min/1.73m2 Severely decreased ?15 - 29 mL/min/1.73m2 Kidney Failure ?< 15 ??mL/min/1.73m2 *Relative to young adult level Estimated glomerular filtration rate is determined by the 2020 CKD-EPI equation recommended by the National Kidney Foundation (A Unifying Approach to GFR Estimation: Recommendations of the NKF-ASK Task Force on Reassessing the Inclusion of Race in Diagnosing Kidney Disease, JASN 2020). The CKD-EPI equation should not be used for patients with unstable renal function and has not been validated in children and those over 70. Current interpretive data was last reviewed 2021. Testing performed by: [address] [address] Blood 04/19/2024 4:57 PM CDT 04/19/2024 5:02 PM CDT us Rehab Kyle YOUNG LAB BLOOD ORDERABLES Final Resu lt NILSA [facility] [place] [address] * (ABNORMAL) Differential, auto (04/19/2024 4:57 PM CDT) Neutrophil abs 8.3(H) 1.5 - 6.5 K/cumm Comment:Testing performed by : [address] [address] Imm gran abs 0.1 0.0 - 0.1 K/cumm NILSA Comment:Testing performed by : [address] [address] Lymphocyte abs 2.1 0.8 - 3.3 K/cumm NILSA Comment:Testing performed by : [address] [address] Monocyte abs 0.6 0.2 - 0.8 K/cumm NILSA Comment:Testing performed by : [address] [address] Eosinophil abs 0.1 0.0 - 0.5 K/cumm NILSA Comment:Testing performed by : [address] [address] Basophil abs 0.0 0.0 - 0.1 K/cumm NILSA Comment:Testing performed by : [address] [address] Neutrophil pct 74.2 % [facility] Comment: Interpretive Data Percent cell count reference ranges are not reported, since discordance with absolute values may lead to misinterpretation of CBC data. Current Interpretive Data was last revised on 2017. Testing performed by: [address] [address] Imm gran pct 0.4 % [facility] Comment: Interpretive Data Percent cell count reference ranges are not reported, since discordance with absolute values may lead to misinterpretation of CBC data. Current Interpretive Data was last revised on 2017. Testing performed by: [address] [address] Lymphocyte pct 19.2 % [facility] Comment: Interpretive Data Percent cell count reference ranges are not reported, since discordance with absolute values may lead to misinterpretation of CBC data. Current Interpretive Data was last revised on 2017. Testing performed by: [address] [address] Monocyte pct 5.2 % [facility] Comment: Interpretive Data Percent cell count reference ranges are not reported, since discordance with absolute values may lead to misinterpretation of CBC data. Current Interpretive Data was last revised on 2017. Testing performed by: [address] [address] Eosinophil pct 0.7 % [facility] Comment: Interpretive Data Percent cell count reference ranges are not reported, since discordance with absolute values may lead to misinterpretation of CBC data. Current Interpretive Data was last revised on 2017. Testing performed by: [address] [address] Basophil pct 0.3 % [facility] Comment: Interpretive Data Percent cell count reference ranges are not reported, since discordance with absolute values may lead to misinterpretation of CBC data. Current Interpretive Data was last revised on 2017. Testing performed by: [address] [place] [address] Blood 04/19/2024 4:57 PM CDT 04/19/2024 5:02 PM CDT Rehab Kyle YOUNG LAB BLOOD ORDERABLES Final Resu lt [facility] [address] [facility] Department [place] [address] * (ABNORMAL) CBC with auto differential (04/19/2024 4:57 PM CDT) WBC 11.2(H) 3.8 - 9.9 K/cumm Comment:Testing performed by : [address] [address] Hgb 9.9(L) 11.9 - 15.5 g/dL NILSA Comment:Testing performed by : [address] [address] Hct 30.0(L) 35.6 - 45.5 % NILSA Comment:Testing performed by : [address] [address] Plt 208 150 - 400 K/cumm NILSA Comment:Testing performed by : [address] [address] MPV 10.9 9.1 - 12.3 fL NILSA Comment:Testing performed by : [address] [address] RBC 3.28(L) 3.90 - 5.20 M/cumm NILSA Comment:Testing performed by : [address] [address] MCV 91.5 81.3 - 96.4 fL NILSA Comment:Testing performed by : [address] [address] MCH 30.2 27.1 - 33.3 pg NILSA RODRIGES Comment:Testing performed by : [address] [address] MCHC 33.0 32.3 - 35.7 g/dL NILSA RODRIGES Comment:Testing performed by : [facility], [address] [place] [address]., [address] RDW CV 14.6 11.1 - 14.9 % NILSA Comment:Testing performed by : [address] [address] RDW SD 49.1(H) 35.7 - 48.1 fL NILSA Comment:Testing performed by : [address] [address] NRBC abs 0.00 0.00 - 0.01 K/cumm NILSA Comment:Testing performed by : [address] [address] Blood (Blood, Venous) 04/19/2024 4:57 PM CDT 04/19/2024 5:02 PM CDT Narrative NILSA - 04/19/2024 5:05 PM CDT Potential Stroke Patient Rehab Kyle YOUNG LAB BLOOD ORDERABLES Final Resu lt Performing Organization Address [facility] de Phone Number NILSA [address] [place] [place] [place] [address] * (ABNORMAL) aPTT (04/19/2024 4:57 PM CDT) aPTT 64(H) 22 - 37 sec Comment: Ref Range High Interpretive data aPTT test has not been evaluated for monitoring heparin therapy. The anti-Xa is the preferred test. Current interpretive data was last revised on 2019. Testing performed by: [address] [address] Blood (Blood, Venous) 04/19/2024 4:57 PM CDT 04/19/2024 5:02 PM CDT Narrative NILSA - 04/19/2024 5:15 PM CDT Potential stroke patient. Rehab Kyle YOUNG LAB BLOOD ORDERABLES Final Resu lt Performing Organization Address City/[facility] Co de Phone Number NILSA [facility] [place] [employer] [place] [address] * Protime-INR (04/19/2024 4:57 PM CDT) Pathologist [facility] PT 13.5 12.0 - 14.6 sec Comment:Testing performed by : [address] [address] INR 1.0 0.9 - 1.2 NILSA Comment: Ref Range High Interpretive data Oral anticoagulant therapeutic ranges: Venous thromboembolism prophylaxis or treatment: 2.0-3.0 CARDIOLOGY Standard range: 2.0-3.0 High-intensity range: 2.5-3.5 Refer to indication-specific guidelines for appropriate target ranges for prosthetic heart valve replacement. Current interpretive data was last revised on 2019. Testing performed by: [address] [address] Blood 04/19/2024 4:57 PM CDT 04/19/2024 5:02 PM CDT us Rehab Kyle YOUNG LAB BLOOD ORDERABLES Final Resu lt [facility] [address] [facility] [place] [address] * (ABNORMAL) Comprehensive metabolic panel (04/19/2024 4:57 PM CDT) Pathologist [facility] Sodium 137 135 - 145 mmol/L Comment:Testing performed by : [address] [address] Potassium, pl 3.8 3.3 - 4.9 mmol/L NILSA Comment:Testing performed by : [address] [address] Chloride 96(L) 97 - 110 mmol/L NILSA Comment:Testing performed by : [address] [address] CO2 26 22 - 32 mmol/L NILSA RODRIGES Comment:Testing performed by : [address] [address] Anion gap 15 2 - 15 mmol/L NILSA Comment:Testing performed by : [address] [address] BUN 22 6 - 25 mg/dL NILSA Comment:Testing performed by : [address] [address] Creatinine 2.30(H) 0.60 - 1.10 mg/dL NILSA Comment:Testing performed by : [address] [address] Glucose 114 70 - 199 mg/dL NILSA Comment: Interpretive Data Fasting glucose >/= 126 mg/dl is diagnostic for diabetes. ?? Fasting is defined as no caloric intake for at least 8 hours. Fasting glucose between 100 mg/dl to 125 mg/dl is diagnostic of prediabetes. In a patient with classic symptoms of hyperglycemia or hyperglycemic crisis, a random glucose >/= 200 mg/dl is diagnostic for diabetes. In the absence of unequivocal hyperglycemia, results should be confirmed by repeat testing. The classification and Diagnosis of Diabetes Diabetes Care 2021; 46: S19-S40. Current interpretive data was last revised 2022. Testing performed by: [address] [address] Calcium 9.2 8.5 - 10.3 mg/dL [facility] Comment:Testing performed by : [address] [address] Bilirubin, total 0.3 0.1 - 1.2 mg/dL [facility] Comment:Testing performed by : [address] [address] Protein, pl 8.1 6.5 - 8.5 g/dL [facility] Comment:Testing performed by : [address] [address] Albumin 4.1 3.5 - 5.0 g/dL [facility] Comment:Testing performed by : [address] [address] Alk phos 133(H) 40 - 130 Units/L NILSA Comment:Testing performed by : [address] [address] ALT 50(H) 7 - 45 Units/L NILSA Comment:Testing performed by : [address] [place] [address] AST 33 10 - 45 Units/L CARLOS ENRIQUEELLEN Comment:Testing performed by : [address] [address] Blood (Blood, Venous) 04/19/2024 4:57 PM CDT 04/19/2024 5:02 PM CDT Narrative NILSA - 04/19/2024 5:44 PM CDT Potential Stroke Patient Rehab Kyle YOUNG LAB BLOOD ORDERABLES Final Resu lt Performing Organization Address [facility] Co de Phone Number [facility] [address] [facility] [place] [address] * POCT glucose (04/19/2024 4:52 PM CDT) [facility] Signature Glucose, POC 115 70 - 199 mg/dL Comment:Testing performed by : [address] [address] Blood 04/19/2024 4:52 PM CDT 04/19/2024 4:52 PM CDT Notinfile Unknown LAB POCT ORDERABLES - DEVICE F inal Result Performing Organization Address [facility] Co de Phone Number [place] [place] [id number] [facility] [place] [address] * CT Stroke Head WO Contrast (04/19/2024 4:51 PM CDT) Anatomical Region Laterality Modality Head N/A Computed Tomogra phy 04/19/2024 5:04 PM CDT Narrative 04/19/2024 5:14 PM CDT EXAM DESCRIPTION: CT STROKE HEAD WO CONTRAST REASON FOR STUDY: Altered mental status during dialysis today. TECHNIQUE: Axial images acquired through the brain without intravenous contrast. ??Images stored on PACS. ?? Automated exposure control was used as a dose optimization technique for this examination. COMPARISON: CT head 12/19/2023 FINDINGS: BRAIN: ?? No hemorrhage, edema or mass effect. ?Mild amount of periventricular white matter hypoattenuation is nonspecific but most consistent with chronic small vessel ischemic disease. ? The medeiros-white matter differentiation is diffusely preserved. Basilar cisterns are patent. ?? No hyperdense vessel. 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 EXTRA-AXIAL SPACES: ?? No fluid collections. No masses. CALVARIUM: ?? No fracture. SINUSES/MASTOIDS: ?? No fluid or mucosal thickening. ORBITS: ?? Prior bilateral lens surgery. OTHER: ?? No other significant abnormality. ?? IMPRESSION: No acute intracranial abnormality by CT criteria. These findings were relayed to the referring physician by the operation support center staff at the time of dictation. THIS IS AN ELECTRONICALLY VERIFIED FINAL REPORT 04/19/2024 5:14 PM - Electronically signed by ??José Miguel Sauer M.D. LB: JOSIAH D: ??04/19/2024 5:14 PM T: ??04/19/2024 5:14 PM Report ID: [id number] Reading Location: ??[id number] Procedure Note José Miguel Sauer MD - 04/19/2024 EXAM DESCRIPTION: CT STROKE HEAD WO CONTRAST REASON FOR STUDY: Altered mental status during dialysis today. TECHNIQUE: Axial images acquired through the brain without intravenous contrast. Images stored on PACS. Automated exposure control was used asa dose optimization technique for this examination. COMPARISON: CT head 12/19/2023 FINDINGS: BRAIN: No hemorrhage, edema or mass effect. Mild amount of periventricular white matter hypoattenuation is nonspecific but most consistent with chronic small vessel ischemic disease. The medeiros-white matter differentiation is diffusely preserved. Basilar cisterns arepatent. No hyperdense vessel. 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 EXTRA-AXIAL SPACES: No fluid collections. No masses. CALVARIUM: No fracture. SINUSES/MASTOIDS: No fluid or mucosal thickening. ORBITS: Prior bilateral lens surgery. OTHER: No other significant abnormality. IMPRESSION: No acute intracranial abnormality by CT criteria. These findings were relayed to the referring physician by the operation support center staff at the time of dictation. THIS IS AN ELECTRONICALLY VERIFIED FINAL REPORT 04/19/2024 5:14 PM - Electronically signed by José Miguel Sauer M.D. LB: LB Report ID: [id number] Reading Location: [id number] [facility] YOUNG IMG CT PROCEDURES Final Result * XR Spine Cervical W Flexion And Extension 6 or More Views (04/06/2024 10:08 AM CDT) Anatomical Region Laterality Modality Spine N/A Computed Radiogr aphy 04/08/2024 6:32 PM CDT Narrative 04/08/2024 6:35 PM CDT EXAM DESCRIPTION: XR SPINE CERVICAL W FLEXION AND EXTENSION 6 OR MORE VIEWS REASON FOR STUDY: pain ?? Lt sided neck pain x 1 mth, NKI ?? TECHNIQUE: Six ??radiographic views of the cervical spine. COMPARISON: Plain film of the cervical spine of December 20, 2006. FINDINGS: ALIGNMENT: ??There is straightening of the normal cervical lordosis with decreased range of motion with flexion and extension. ??There is no subluxation seen with flexion or extension. VERTEBRAE: ??Vertebral bodies are normal in height. ?? There is mild diffuse facet arthropathy, slightly increased from previous. ?The spinous processes are intact. DISCS: ??There is moderate disc height loss at C3-C4 through C7-C6 with mild endplate irregularity and anterior endplate osteophytes, progressed from previous. ?? There is diffuse bilateral neural foraminal narrowing at these levels. SOFT TISSUES: ??No significant abnormalities seen. IMPRESSION: Progressive degenerative change of the cervical spine. THIS IS AN ELECTRONICALLY VERIFIED FINAL REPORT 04/08/2024 6:35 PM - Electronically signed by ??Tahmina MULLINS D: ??04/08/2024 6:35 PM T: Report ID: [id number] Reading Location: ??[id number] Procedure Note Tahmina Feliciano MD - 04/08/2024 EXAM DESCRIPTION: XR SPINE CERVICAL W FLEXION AND EXTENSION 6 OR MOREVIEWS REASON FOR STUDY: pain Lt sided neck pain x 1 mth, NKI TECHNIQUE: Six radiographic views of the cervical spine. COMPARISON: Plain film of the cervical spine of December 20, 2006. FINDINGS: ALIGNMENT: There is straightening of the normal cervicallordosis with decreased range of motion with flexion and extension. There is no subluxation seen with flexion or extension. VERTEBRAE: Vertebral bodies are normal in height. There is mild diffuse facet arthropathy, slightly increased from previous. The spinousprocesses are intact. DISCS: There is moderate disc height loss at C3-C4 through C7-C6 withmild endplate irregularity and anterior endplate osteophytes, progressed from previous. There is diffuse bilateral neural foraminal narrowing at these levels. SOFT TISSUES: No significant abnormalities seen. IMPRESSION: Progressive degenerative change of the cervical spine. THIS IS AN ELECTRONICALLY VERIFIED FINAL REPORT 04/08/2024 6:35 PM - Electronically signed by Tahmina Feliciano M.D. SN T: Report ID: [id number] Reading Location: [place] [address] Brook uMhammad NP IMG XR PROCEDURES Final Res ult * WV INJECTION SINGLE/KNOT PICKER CLOTH TRIGGER POINT 1/2 MUSCLES (04/06/2024 10:00 AM CDT) Narrative Brook Muhammad NP - 04/06/2024 10:00 AM CDT Brook Muhammad NP ? 04/07/2024 ??6:06 PM Trigger Point Injection Performed by: Brook Muhammad NP Authorized by: Brook Muhammad NP ?? Consent Given by: ??Patient Site marked: the procedure site was marked ?? Timeout: prior to procedure the correct patient, procedure, and site was verified ?? Consent obtained:: ??Verbal Risks discussed, including, but not limited to:: ??Pain and repeat procedure Alternatives discussed:: ??Alternative treatment, delayed treatment and no treatment Site/side marked: Yes ?? Indications: ??Myalgia and pain Location: ??R cervical paraspinal and L cervical paraspinal Local anesthetic: ??Ethyl chloride spray Ultrasound guidance: No ?? Needle size: ??25 G Number of muscles: ??1 or 2 Approach: ??Posterior Medications: ??2 mL lidocaine 10 mg/mL (1 %); 80 mg triamcinolone 40 mg/mL Patient tolerance: ??Patient tolerated the procedure well with no immediate complications us Brook Muhammad NP IN CLINIC/BEDSIDE ORDERABLE S Final Result * Colonoscopy (03/01/2024 8:49 AM CDT) Anatomical Region Laterality Modality Other Narrative Procedure Note Jaya Grier MD - 03/01/2024 8:49 AM CDT [facility] ENDOSCOPY Patient Name: Barbara Chakraborty Procedure Date: 03/01/2024 8:49 AM Date of : 1950 Admit Type: Outpatient Age: 73 Gender: Female Attending MD: Jaya Grier M.D. Room: [facility] ENDOSCOPY ROOM 06 Note Status: Finalized Procedure: Colonoscopy Indications: Screening for colorectal malignant neoplasm Referring MD: Providers: Jaya Grier M.D. Medicines: Monitored Anesthesia Care Complications: No immediate complications. Estimated Blood Loss: Estimated blood loss: none. Procedure: Pre-Anesthesia Assessment: - Prior to the procedure, a History and Physicalwas performed, and patient medications and allergieswere reviewed. The risks and benefits of the procedureand the sedation options and risks were discussed withthe patient. All questions were answered and informed consent was obtained. Patient identification and proposed procedure were verified. After reviewingthe risks and benefits, the patient was deemed in satisfactory condition to undergo the procedure.The anesthesia plan was to use monitored anesthesiacare (MAC). Immediately prior to administration of medications, the patient was re-assessed foradequacy to receive sedatives. The heart rate, respiratory rate, oxygen saturations, blood pressure, adequacyof pulmonary ventilation, and response to care were monitored throughout the procedure. The physical status of the patient was re-assessed after the procedure. The benefits, risks and alternatives of theprocedure and sedation were discussed and informed consentwas obtained. All questions were answered. Please referto the signed informed consent document in the medical record. The scope was passed under direct vision.The [id number]-[id number] colonoscope was introduced through theanus and advanced to the cecum, identified byappendiceal orifice and ileocecal valve. The colonoscopy was performed without difficulty. The patient tolerated the procedure well. The quality of the bowel preparation was good. Scope withdrawal time was 10 minutes. Prep was administered in a split dose. Findings: The perianal and digital rectal examinations were normal. A diminutive polyp was found in the cecum. The polyp was removed witha cold biopsy forceps. Resection and retrieval were complete. A diminutive polyp was found in the transverse colon. The polyp was removed with a cold biopsy forceps. Resection and retrieval were complete. A diminutive polyp was found in the descending colon. The polyp was removed with a cold biopsy forceps. Resection and retrieval were complete. Non-bleeding internal hemorrhoids were found during retroflexion. The hemorrhoids were small. The exam was otherwise without abnormality. Impression: - One diminutive polyp in the cecum, removed with a cold biopsy forceps. Resected and retrieved. - One diminutive polyp in the transverse colon, removed with a cold biopsy forceps. Resected and retrieved. - One diminutive polyp in the descending colon, removed with a cold biopsy forceps. Resected and retrieved. - Non-bleeding internal hemorrhoids. - The examination was otherwise normal. Recommendation: - Patient has a contact number available for emergencies. The signs and symptoms of potential delayed complications were discussed with thepatient. Return to normal activities tomorrow. Written discharge instructions were provided to thepatient. - High fiber diet. - Continue present medications. - Await pathology results. - Repeat colonoscopy in 3 years for surveillance. Jaya Grier M.D. Jaya Grier M.D. 03/01/2024 9:09:38 AM . Number of Addenda: 0 Note Initiated On: 03/01/2024 8:49 AM Recognized by the [employer] for promoting quality in endoscopy us Jaya Grier MD ENDOSCOPY PROCEDURES Final Resul t * Dexa Axial Skeleton Bone Density 1 or 2 Site (01/22/2024 12:32 PM CDT) Anatomical Region Laterality Modality Body N/A Mammography 01/22/2024 1:01 PM CDT Narrative 01/22/2024 1:02 PM CDT EXAM DESCRIPTION: DEXA AXIAL SKELETON BONE DENSITY 1 OR MORE SITES REASON FOR STUDY: 73 y/o ?? year old ??F ??with given history of: ??Post menopausal status. ??History of taking vitamin-D. ??History of end-stage renal disease. ? [employer]/Model: Autogrid A (S/N [id number]) CLINICAL INFORMATION: Current height: ??61 ??inches ? Maximum height: ??61 ??inches ? Weight: ??145 ??pounds Risk factors: ??None COMPARISON: 01/08/2021 FINDINGS: AP LUMBAR SPINE L1-L4: Total BMD is 1.261 g/cm2 T-score is 1.0 This is a 0.4% decrease in comparison to prior exam which ??is not statistically significant. LEFT HIP: Total BMD is 1.121 g/cm2 T-score is 0.6 This is 1.5% increase in comparison to prior exam which is not statistically significant. Femoral neck BMD is 0.967 g/cm2 T-score is 0.1 ?? FRAX: FRAX not reported due to T-scores of hip, femoral neck and/or spine being at or above -1.0 (Normal). IMPRESSION: Normal bone mass. REFERENCE: Bone mineral density: T-Score: ?Normal (T-score above or = -1.0) ?Low bone mass ??(T-score between -1.0 and -2.5) replaces the previously used term osteopenia ?Osteoporosis (T-score = or below -2.5) Z-Score: ? Within the expected range for age (Z-score above -2.0) ? Below the expected range for age (Z-score is -2.0 or below) Please see below follow up recommendations. Medical evaluation for secondary causes of low bone mineral density may be appropriate. FRAX is a World Health Organization validated fracture risk assessment tool that calculates a person's 10 year probability of a major osteoporosis related fracture and hip fracture. ??According to the National Osteoporosis Foundation guidelines, postmenopausal women and men age 50 or older with low bone mass and a 10 year probability of a major osteoporosis related fracture = or greater than 20% or a 10 year probability of a hip fracture = or greater than 3% should be considered for pharmacological treatment for the prevention of osteoporosis. For further information, including treatment recommendations, please refer to the 2019 ISCD Official Positions (http://www.iscd.org) and the NOF's Clinician's Guide to Prevention and Treatment of Osteoporosis (http://www.nof.org/professionals/clinical-guidelines) THIS IS AN ELECTRONICALLY VERIFIED FINAL REPORT 01/22/2024 1:02 PM - Electronically signed by ??Rafaela Paulino M.D. TW: FAIZAN D: ??01/22/2024 1:02 PM T: ??01/22/2024 1:02 PM Report ID: [id number] Reading Location: ??[id number] Procedure Note Rafaela Paulino MD - 01/22/2024 EXAM DESCRIPTION: DEXA AXIAL SKELETON BONE DENSITY 1 OR MORE SITES REASON FOR STUDY: 73 y/o year old F with given history of: Post menopausal status. History of taking vitamin-D. History of end-stagerenal disease. [employer]/Model: Autogrid A (S/N [id number]) CLINICAL INFORMATION: Current height: 61 inches Maximum height: 61 inches Weight: 145 pounds Risk factors: None COMPARISON: 01/08/2021 FINDINGS: AP LUMBAR SPINE L1-L4: Total BMD is 1.261 g/cm2 T-score is 1.0 This is a 0.4% decrease in comparison to prior exam which is not statistically significant. LEFT HIP: Total BMD is 1.121 g/cm2 T-score is 0.6 This is 1.5% increase in comparison to prior exam which is notstatistically significant. Femoral neck BMD is 0.967 g/cm2 T-score is 0.1 FRAX: FRAX not reported due to T-scores of hip, femoral neck and/or spine beingat or above -1.0 (Normal). IMPRESSION: Normal bone mass. REFERENCE: Bone mineral density: T-Score: Normal (T-score above or = -1.0) Low bone mass (T-score between -1.0 and -2.5) replaces thepreviously used term osteopenia Osteoporosis (T-score = or below -2.5) Z-Score: Within the expected range for age (Z-score above -2.0) Below the expected range for age (Z-score is -2.0 or below) Please see below follow up recommendations. Medical evaluation forsecondary causes of low bone mineral density may be appropriate. FRAX is a World Health Organization validated fracture risk assessmenttool that calculates a person's 10 year probability of a major osteoporosisrelated fracture and hip fracture. According to the National OsteoporosisFoundation guidelines, postmenopausal women and men age 50 or older with low bonemass and a 10 year probability of a major osteoporosis related fracture = or greater than 20% or a 10 year probability of a hip fracture = or greaterthan 3% should be considered for pharmacological treatment for the preventionof osteoporosis. For further information, including treatment recommendations, please referto the 2019 ISCD Official Positions (http://www.iscd.org) and the NOF's Clinician's Guide to Prevention and Treatment of Osteoporosis (http://www.nof.org/professionals/clinical-guidelines) THIS IS AN ELECTRONICALLY VERIFIED FINAL REPORT 01/22/2024 1:02 PM - Electronically signed by Rafaela Paulino M.D. TW: TW Report ID: [id number] Reading Location: [place] [address] Cherelle Corcoran MD IMG DXA PROCEDURE S Final Result * Screening Mammogram Bilateral W Stalin (01/22/2024 12:21 PM CDT) Anatomical Region Laterality Modality Breast Bilateral Mammography Impressions 01/22/2024 12:30 PM CDT BI-RADS?? ATLAS category (overall): 2 - Benign There is no mammographic evidence of malignancy. A 1 year screening mammogram is recommended. The patient has been or will be contacted. We recommend annual screening mammography for women at average risk of breast cancer beginning at age 40, based on guidelines of the [place] [employer] (ACR Practice Parameter for the Performance of Screening and Diagnostic Mammography) and [place] [employer]etric[employer]nec[employer]. For women with and elevated risk of breast cancer, please refer to the ACR Practice Parameter for specific screening recommendations. The patient will be entered into a reminder system with a target due date of 1 year for her next screening exam. Narrative 01/22/2024 12:30 PM CDT Screening Mammogram Bilateral W Stalin: 01/22/24 The study was acquired using full field digital technology and interpreted from soft copy. 2D digital mammographic views, as well as 3D digital tomosynthesis were performed in the CC and MLO projections. CLINICAL: ??Encounter for screening mammogram for breast cancer ??No relevant medical history has been documented for this patient. ??No known family history of breast cancer. COMPARISONS: 09/25/2022 Screening Mammogram Bilateral W Stalin 01/08/2021 SCREENING MAMMOGRAM BILATERAL W STALIN 11/08/2015 Diagnostic Mammogram Bilateral W Stalin BREAST TISSUE: The breasts have scattered areas of fibroglandular density. FINDINGS: Suboptimal examination secondary to difficulty with patient positioning related to the patient's physical condition (in wheelchair). Compared with prior mammograms, there is diffuse symmetric increased density of both breasts consistent with weight loss. There are benign calcifications in both breasts. There is no new suspicious finding in either breast on mammogram. Cherelle Corcoran MD IMG MAMMO PROCEDU RES Final Result * Hepatitis panel, acute Blood (10/15/2023 6:50 AM CDT) Hep A IgM Nonreactive Nonreactive Comment: Interpretive Data: If Hep A IgM Ab is reported as Equivocal, a new sample should be drawn in two weeks for testing. Current interpretive data was last revised on 19. Hep B core IgM Nonreactive Nonreactive [facility] Comment: Interpretive Data If HepB Core IgM Ab is reported as Equivocal, a new sample should be drawn in two weeks for testing. Current interpretive data was last revised on 19. Hep C Ab Nonreactive Nonreactive [facility] Comment: Interpretive Data Nonreactive: Antibodies to HCV not detected. Does NOT exclude the possibility of recent exposure to HCV. Equivocal: Equivocal for HCV antibodies. Supplemental molecular testing will be automatically performed to determine infection status in accordance with current CDC screening recommendations. ?? Reactive: Positive for HCV antibodies. ??This may represent current or past HCV infection. Supplemental molecular testing will be automatically performed to determine ??current infection status in accordance with current CDC screening recommendations. Interpretive data was last revised on 2019. HepBsAg Nonreactive Nonreactive [facility] Blood 10/15/2023 6:50 AM CDT 10/15/2023 7:07 AM CDT Jimbo Strauss MD LAB MICROBIOLOGY - GENERAL [place] Final Result [facility] [address] [place] [address] * (ABNORMAL) Albumin Creatinine Ratio, Urine (10/10/2022 11:39 AM CDT) Albumin Ur 3,240.2 mg/L NILSA Comment: Interpretive Data No reference range established. Current interpretive data was last revised 2018. Testing performed by: [facility], [address] [place] [address]., [id number] Creatinine Ur 74.8 mg/dL NILSA RODRIGES Comment: Interpretive Data No reference range established. Current interpretive data was last revised 2018. Testing performed by: [facility], [address] [place] [address]., [id number] Albumin Creatinine Ratio, Ur 4,332(H) 1 - 29 mg/g NILSA RODRIGES Comment:Testing performed by : [facility], [address] [place] [address]., [id number] Urine 10/10/2022 11:3 9 AM CDT 10/10/2022 1:45 PM CDT Markie Ryan MD LAB URINE ORDERABLES Final Re sult NILSA RODRIGES [address] [facility] Department [place] [address] * (ABNORMAL) Diabetic Eye Exam (05/27/2022) Historical Provider HEALTH MAINTENANCE Final Result from Last 3 Months or Most Recently Relevant to Health Maintenance Insurance MEDICARE MEDICARE [place] MEDICARE [facility] MEDICARE 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 * Full Code (Latest Code Status on File) Date Activated Date Inactivated Comments 04/20/2024 12:03 AM 04/23/2024 11:32 PM * Full Code Date Activated Date Inactivated Comments 01/31/2024 12:21 PM 02/01/2024 10:58 PM * Full Code Date Activated Date Inactivated Comments 01/30/2024 5:12 AM 01/31/2024 12:21 PM * Full Code Date Activated Date Inactivated Comments 01/06/2024 12:18 AM 01/07/2024 1:18 AM * Full Code Date Activated Date Inactivated Comments 12/19/2023 6:38 PM 12/26/2023 11:37 PM Healthcare Agents on File Name Relationship Healthcare Agent Relationship Communication Areli Gayle Daughter Health Care Agent 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 [place] [address] Consulting Physician Infectious Diseases 12/05/22 Markie Ryan MD [address] [place] [address] Consulting Physician Nephrology 12/05/22 [place] [id number] [address] Consulting Physician Nephrology 10/22/23 Jaya Grier MD [address] [place] [address] Consulting Physician Gastroenterology 02/01/24
--- OUTSIDE RECORDS SUMMARY | 2024-07-04 03:59 | XMS_ITS ---
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) RESOLVED 08/15/2021 08/15/2021 OTHER HYPERLIPIDEMIA (E78.49 - ICD-10-CM) RESOLVED 08/15/2021 08/15/2021 ALZHEIMER'S DISEASE (G30 - ICD-10-CM) RESOLVED 08/15/2021 SCHIZOAFFECTIVE DISORDER, 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) ACTIVE 08/15/2021 GASTRO-ESOPHAGEAL REFLUX DIS EASE WITHOUT ESOPHAGITIS (K21.9 - ICD-10-CM) ACTIVE 08/14/2021 OTHER HYPERLIPIDEMIA (E78.49 - ICD-10-CM) ACTIVE 08/14/2021 ALZHEIMER'S DISEASE (G30 - ICD-10-CM) ACTIVE ANEMIA, UNSPECIFIED (D64.9 - ICD-10-CM) ACTIVE 0 08/14/2021 ALZHEIMER'S DISEASE, UNSPECIFIED (G30.9 - ICD-10-CM) A CTIVE 08/14/2021 IRON DEFICIENCY ANEMIA (D50 - ICD-10-CM) ACTIVE 08/14/2021 ESSENTIAL (PRIMARY) HYPERTENSION (I10 - ICD-10-CM) ACT FACUNDO 08/14/2021 Encounters Encounter Performer Performer Role Encounter Diagnoses Location Date Discharge - Discharged / Transferred to [facility] - [facility] Jose DEMARCO 08/14/2021 09:57 pm EST - 08/22/2021 11:50 am EST Social History
--- OUTSIDE RECORDS SUMMARY | 2024-07-04 03:59 | XMS_ITS ---
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-CM) ACTIVE 10/22/2023 OTHER ABNORMALITIES OF GAIT AND MOBILITY (R26.89 - ICD-10-CM) ACTIVE 10/22/2023 WEAKNESS (R53.1 - ICD-10-CM) ACTIVE 10/22/2023 DISORIENTATION, UNSPECIFIED (R41.0 - ICD-10-CM) ACTIVE 10/22/2023 FRONTAL LOBE AND EXECUTIVE F UNCTION DEFICIT (R41.844 - ICD-10-CM) ACTIVE 10/22/2023 COGNITIVE COMMUNICATION DEFICIT (R41.841 - ICD-10-CM) ACTIVE 10/22/2023 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 - ICD-10-CM) ACTIVE 10/21 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 - ICD-10-CM) ACTIVE 10/22/2023 END STAGE RENAL DISEASE (N18.6 - ICD-10-CM) ACTIVE 10/22/2023 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) ACTIV E 10/22/2023 ACQUIRED ABSENCE OF OTHER RI GHT TOE(S) (Z89.421 - ICD-10-CM) ACTIVE 10/22/2023 BANDEMIA (D72.825 - ICD-10-CM) ACTIVE 10/22/2023 SCHIZOAFFECTIVE DISORDER, BIPOLAR TYPE (F25.0 - ICD-10 -CM) ACTIVE 10/22/2023 IRON DEFICIENCY ANEMIA SECON ANDREY TO BLOOD LOSS (CHRONIC) (D50.0 - ICD-10-CM) ACTIVE 10/22/2023 ALZHEIMER'S DISEASE, UNSPECIFIED (G30.9 - ICD-10-CM) A CTIVE 10/22/2023 GASTRO-ESOPHAGEAL REFLUX DIS EASE WITHOUT ESOPHAGITIS (K21.9 - ICD-10-CM) ACTIVE 10/22/2023 ESSENTIAL (PRIMARY) HYPERTENSION (I10 - ICD-10-CM) ACT FACUNDO 10/22/2023 Encounters Encounter Performer Performer Role Encounter Diagnoses Location Date Discharge - Discharged to home or self care - Count [facility]cludes [facility] 10/22/2023 03:48 pm EDT - 10/23/2023 06:00 pm EDT Immunizations Vaccine Date TB 1 Step [place] (PPD) 10/22/2023 11:00 pm EDT Social History
--- OUTSIDE RECORDS SUMMARY | 2024-07-04 04:00 | XMS_ITS | Encounter Summary ---
Author Organization [facility] Address [address] [place] [address] Phone Care Team Providers Care Clinical Psychologist Private Practice Name Role Phone Cherelle Corcoran MD Primary Care Pro vider Mark Queen MD Unavailable [phone] Rudolph Welch MD Unavailable Markie Ryan MD Unavailable Jimbo Strauss MD Unavailable [phone] Jaya Grier MD Unavailable Reason for Visit * Reason Comments Diabetes Type 2 Encounter Details Date Type Department Care Team (Latest Contact Info) Description 05/16/2024 8:40 AM FLATBED TRUCK DRIVER Office Visit [facility] Endocrinology Metabolism and Lipid [address] [facility] [address], [address] [place] [address] Smith Gibbs MD [address] [place] [address] Type 2 diabetes mellitus with diabetic neuropathy, with long-term current use of insulin (HCC) (Primary Dx); Primary hypertension; Mixed hyperlipidemia; ESRD on hemodialysis ([facility]) ([facility]); Diabetes, polyneuropathy ([facility]) ([facility]) Social History Tobacco Use Types Packs/Day Years Used Date Smoking Tobacco: Never Passive Smoke Exposure: Never Smokeless Tobacco: Never Alcohol Use Standard Drinks/Week Comments Not Currently [...] materials from doctor or pharmacy Often 01/20/2024 [facility] Utilities Answer Date Recorded In the past 12 months has th e [employer], gas, oil, or water [employer] threatened to shut off services in your [...] 04/20/2024 How often do you attend chur ch or congregation services? More than 4 times per year 04/20/2024 Do you belong to any clubs o r organizations such as jain groups, unions, fraternal or athletic groups, or [...] place to sleep or slept in a care home (including now)? No 10/30/2023 Housing Stability Vital Sign Answer Fuentes e Recorded In the last 12 months, was t here a time when you were not able to pay the mortgage or rent on time? No 04/20/2024 In the past 12 months, how m any times have you moved where you were living? 0 04/20/2024 At any time in the past 12 m [facility], were you homeless or living in a care home (including now)? No 04/20/2024 Personal Safety Answer Date Recorded Have you ever been in or are you currently in a harmful physical or emotional relationship or is someone making you feel afraid or unsafe? Denies 04/19/2024 Comments No Sex and Gender Information Value Date Recorded Sex Assigned at Not on file Legal Sex Female 9:03 AM FLATBED TRUCK DRIVER Gender Identity Female 02/08/2020 6:39 PM CDT Sexual Orientation Not on file documented as of this encounter Last Filed Vital Signs Vital Sign Reading Time Taken Comments Blood Pressure 172/76 05/16/2024 9:09 AM FLATBED TRUCK DRIVER Pulse 70 05/16/2024 9:09 AM FLATBED TRUCK DRIVER Temperature - - Respiratory Rate - - Oxygen Saturation - - Inhaled Oxygen Concentration - - Weight 60.8 kg (134 lb) 05/16/2024 9:09 AM FLATBED TRUCK DRIVER Height 157.5 cm (5' 2 ) 05/16/2024 9:09 AM FLATBED TRUCK DRIVER Body Mass Index 24.51 05/16/2024 9:09 AM FLATBED TRUCK DRIVER documented in this encounter Ordered Prescriptions Prescription Sig Dispense Quantity Refills Last Filled Start Date End Date alpha lipoic acid 600 mg capsuleIndications:T ype 2 diabetes mellitus with diabetic neuropathy, with long-term current use of insulin (HCC),Diabetes, polyneuropathy (CMS/HCC) (HCC) Take 1 capsule (600 mg total) by mouth daily 30 capsule 1 05/16/2024 5 documented in this encounter Progress Notes * Smith Gibbs MD - 05/16/2024 8:40 AM CST Images from the original note were not included. Endocrine Outpatient Visit Chief Complaint Patient presents with Diabetes Type 2 HPI: Last visit was on 12/07/2023 Patient is a 73 y.o. female with T2DM complicated by neuropathy, ESRD on HD (TTS), microalbuminuria, HLD, HTN, HFpEF, history of LE DVT, schizoaffective disorder who is here for T2DM follow-up. Since last visit: Patient reported chronic shoulder pain which is now worse, no acute complaints. Reports adherence to recommended regimen with no adverse events. One hospitalization since last visitfor AMS during dialysis in 03/2024. Current regimen: -Lantus 18 units qHS -Humalog 4 units + 1:50 >150 TIDAC CGM/SMBG: Madhav 3 sensor. Pattern shows excellent glycemic control with TIR above 70%. Minimal postprandial hyperglycemia. Hypoglycemia events: none Associated symptoms: none Awareness: + <70 Change in eating habits: appetite is good Change in physical activity: sedentary Neuropathy: +, stable on gabapentin. No open wounds or ulcers. Retinopathy: Last dilated retinal exam is due Nephropathy: +, on ACEi/ARBs BP above goal Labs since last visit: -04/2024 A1c 8.2% (09/2023) > 6.5% (04/2024) Total cholesterol 118 TG 104 HDL 47 LDL 50 - off Atorvastatin 40 mg daily for few weeks now UaCR +4000 Cr 2.50 GFR 20 Current Outpatient Medications Medication Sig Dispense Refill acetaminophen 500 mg capsule Take 2 capsules (1,000 mg total) by mouth 3 (three) times a day as needed for mild pain (pain scale 1-4) aspirin 81 mg chewable tablet Take 1 tablet (81 mg total) by mouth daily 90 tablet 1 atorvastatin (LIPITOR) 40 mg tablet Take 1 tablet (40 mg total) by mouth nightly 30 tablet 11 azithromycin (ZITHROMAX) 250 mg tablet benztropine (COGENTIN) 2 mg tablet Take 1 tablet (2 mg total) by mouth daily (Patient taking differently: Take 1 tablet (2 mg total) by mouth nightly) 30 tablet 0 blood-glucose sensor (FreeStyle Madhav 3 Sensor) device Use for continuous glucose monitoring. Change sensor every 14 days 6 each 3 carvediloL (COREG) 3.125 mg tablet Take 1 tablet (3.125 mg total) by mouth 2 (two) times a day docusate sodium (COLACE) 100 mg capsule Take 1 capsule (100 mg total) by mouth every 12 (twelve) hours 60 capsule 0 FeroSuL 325 mg (65 mg iron) tablet Take 1 tablet (325 mg total) by mouth daily with breakfast 90 tablet 1 flash glucose scanning reader [facility] Use Madhav 3 reader to scan Madhav 3 sensor 1 each 0 fluticasone propionate (FLONASE) 50 mcg/actuation nasal spray Administer 2 sprays into each nostrildaily as needed for rhinitis FreeStyle Madhav 3 [place] [facility] Use Madhav 3 reader to scan Madhav 3 sensor gabapentin (NEURONTIN) 100 mg capsule TAKE 1 CAPSULE BY MOUTH 3 TIMES PER WEEK AFTER HEMODIALYSIS 12 capsule 2 insulin glargine 100 unit/mL (3 mL) pen for injection Inject 18 Units under the skin nightly insulin lispro (HumaLOG, ADMELOG) 100 unit/mL vial for injection Inject 4 Units under the skin 3 (three) times a day before meals Gets 4 units at baseline then 1 unit for every 50 over 150 Lagevrio, EUA, 200 mg capsule (EUA) TAKE 4 CAPSULES BY MOUTH EVERY 12 HOURS FOR 5 DAYS lidocaine (ASPERCREME) 4 % adhesive patch,medicated Place 1 patch on the skin daily as needed to lower back methoxy peg-epoetin beta (MIRCERA INJ) 75 mcg once every 2 weeks NIFEdipine (NIFEdipine CC) 90 mg 24 hr tablet Take 1 tablet (90 mg total) by mouth daily pantoprazole DR (PROTONIX) 40 mg EC tablet TAKE 1 TABLET(40 MG) BY MOUTH TWICE DAILY 180 tablet 0 pen needle, diabetic (Easy Touch) 32 gauge x 5/32 needle USE DIRECTED FOUR TIMES DAILY 100 each3 polyethylene glycol (MIRALAX) 17 gram/dose bulk powder Take 17 g by mouth daily as needed (Constipation) 595 g 0 sucralfate (CARAFATE) 1 gram tablet Take 1 tablet (1 g total) by mouth 4 (four) times a day (Patient taking differently: Take 1 tablet (1 g total) by mouth 4 (four) times a day Does not take consistently) 120 tablet 1 sucroferric oxyhydroxide 500 mg tablet,chewable Take 0.5 tablets by mouth 3 (three) times a day alpha lipoic acid 600 mg capsule Take 1 capsule (600 mg total) by mouth daily 30 capsule 1 hydrALAZINE (APRESOLINE) 25 mg tablet Take 1 tablet (25 mg total) by mouth 2 (two) times a day 60 tablet 1 risperiDONE (RisperDAL) 2 mg tablet Take 1 tablet (2 mg total) by mouth nightly 30 tablet 0 traMADoL (ULTRAM) 25 mg tablet Take 1 tablet (25 mg total) by mouth every 8 (eight) hours as neededfor pain 90 tablet 0 No current facility-administered medications for this visit. Review of Systems Review of systems per HPI and otherwise all other systems are negative. OBJECTIVES Vitals BP (!) 172/76 (BP Location: Right arm, Patient Position: Sitting) Pulse 70 Ht 157.5 cm (5' 2 ) Wt 60.8 kg (134 lb) BMI 24.51 kg/m?? Physical exam: General Appearance: No apparent distress Eyes: EOMI, anicteric. No exophthalmos, lid lag or chemosis Neck: Supple Thyroid: No apparent enlargement Lungs: Non-labored breathing Cardiovascular: Normal rate Abdomen: Non-distended Extremities: No cyanosis or edema Skin: No rashes Neurologic: Alert and oriented x4. No tremor. Psychosocial: Normal affect and mood. Pertinent labs and imaging were reviewed with patient during the visit Assessment/Plan: Patient is a 73 y.o. female with T2DM complicated by neuropathy, CKD stage 4, microalbuminuria, HLD, HTN, HFpEF, history of LE DVT, schizoaffective disorder who is here for T2DM follow-up. 1. Type 2 diabetes mellitus with diabetic neuropathy, with long-term current use of insulin ([facility]) (HCC) Excellent glycemic control as suggested by patient's most recent GMI / TIR We discussed targets which include HbA1c < 8%, TIR > 50%, goal BG 100-180 If experiencing symptoms of hypoglycemia or BG below 70, follow the rule of 15/15-15 rule. Adjustments to current regimen: -Decrease Lantus to 16 units qHS due to concerns of hypoglycemia -Continue Humalog 4 units +1:50 >150 TIDAC -CGM sensors: Madhav 3 sensor with reader -Continuous glucose monitor alarms should be set to alert to hypoglycemia 2. Mixed hyperlipidemia -LDL at goal, TG at goal -Due for repeat lipid panel now -To resume Atorvastatin at 20 mg daily -Goal LDL <70, TG <150 3. Primary hypertension -BP above goal -Monitor BP at home and follow-up with PCP -Goal BP <130/80 4. ESRD on hemodialysis -Currently on HD on TTS Orders Placed This Encounter Procedures Lipid panel These lab test should be done fasting. This means do not eat or drink for at least 12 hours prior to getting your blood drawn. Standing Status: Future Standing Expiration Date: 05/16/2025 POCT hemoglobin A1c New Medications Ordered This Visit alpha lipoic acid 600 mg capsule Sig: Take 1 capsule (600 mg total) by mouth daily Dispense: 30 capsule Refill: 1 Plan: Return in about 3 months (around 08/16/2024) for Next scheduled follow up. My total encounter time on 05/16/2024 was 30 minutes which was spent in the activities documented in the note. This includes time spent prior to the visit and after the visit in direct care of the patient. Smith Gibbs MD Instructor of Medicine Endocrinology, Metabolism and Lipid Research [facility] in [place] BED TRUCK DRIVER documented in this encounter Plan of Treatment Upcoming Encounters Date Type Department Care Team (Latest Contact Info) Description 07/13/2024 9:00 AM FLATBED TRUCK DRIVER Hospital Encounter [facility] GI Lab [address] [place] [address] Jaya Grier MD [address] [facility] [address] [address] [place] [address] 07/13/2024 9:00 AM FLATBED TRUCK DRIVER - 07/13/2024 9:30 AM FLATBED TRUCK DRIVER Surgery [facility] Lab [address] [place] [address] Jaya Grier MD [address] [facility] [address] [place] [address] ESOPHAGOGASTRODUODENOSCOPY Scheduled Procedures Name Priority Associated Diagnoses Date/Ti me ESOPHAGOGASTRODUODENOSCOPY Anemia, unspecified type Gastritis without bleeding, unspecified chronicity, unspecified gastritis type 07/13/2024 9:00 AM FLATBED TRUCK DRIVER COLONOSCOPY Iron deficiency anemia due to chronic blood loss documented as of this encounter Procedures Procedure Name Priority Date/Time Associated Diagnosis Comments POCT HEMOGLOBIN A1C Routine 05/16/2024 9 :12 AM FLATBED TRUCK DRIVER Type 2 diabetes mellitus with diabetic neuropathy, with long-term current use of insulin (HCC) documented in this encounter Results * Lipid panel (05/16/2024 10:14 AM FLATBED TRUCK DRIVER) Cholesterol 160 30 - 199 mg/dL Comment: [...] revised on 2018. HDL 49 >=40 mg/dL NILSA DIAS Comment: Interpretive Data Ages [...] NILSA DIAS Blood 05/16/2024 10:1 4 AM FLATBED TRUCK DRIVER 05/16/2024 10:50 AM FLATBED TRUCK DRIVER Narrative NILSA DIAS - 05/16/2024 11:23 AM FLATBED TRUCK DRIVER These lab test should be done fasting. This means do not eat or drink for at least 12 hours prior to getting your blood drawn. us Smith Gibbs MD LAB BLOOD ORDERABLES Final R esult NILSA DIAS [id number] [facility]. [place] [address] * POCT hemoglobin A1c (05/16/2024 9:12 AM FLATBED TRUCK DRIVER) Hemoglobin A1C, POC 6.5 4.0 - 5.6 % Blood 05/16/2024 9:12 AM FLATBED TRUCK DRIVER Smith Gibbs MD POINT OF CARE TEST ORDERABLE S Final Result documented in this encounter Visit Diagnoses Diagnosis Type 2 diabetes mellitus with diabetic neuropathy, with long-term current use of insulin ([facility])- Primary Primary hypertension Unspecified essential hypertension Mixed hyperlipidemia ESRD on hemodialysis ([facility]) ([facility]) Diabetes, polyneuropathy ([facility]) ([facility]) Type II or unspecified type diabetes mellitus with neurological manifestations, not stated as uncontrolled Mixed hyperlipidemia Anemia, unspecified type Gastritis without bleeding, unspecified chronicity, unspecified gastritis type documented in this encounter Discontinued Medications Medication Sig Discontinue Reason Start Date End Da te carvediloL (COREG) 6.25 mg tabletIndications:Unco ntrolled hypertension,Chronic diastolic congestive heart failure ([facility]) ([facility]) Take 1 tablet (6.25 mg total) by mouth 2 (two) times a day with meals Therapy completed 02/11/2024 05/16/2024 flash glucose sensor (FreeStyle Madhav 2 Sensor) kitIndications:Type 2 diabetes mellitus with diabetic neuropathy, with long-term current use of insulin ([facility]) Use to continually monitor glucose, change every 14 days Alternate therapy 03/24/2023 05/16/2024 documented as of this encounter Historical Medications * This list may reflect changes made after this encounter. 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 06/26/2024 3:05 AM FLATBED TRUCK DRIVER documented as of this encounter Care Teams Clinical Psychologist Private Practice Relationship Specialty Start Date End Date Cherelle Corcoran MD PCP - General Family Medicine 08/30/19 Mark Queen MD Consulting Physician Infectious Diseases 01/10/20 Rudolph Welch MD [address] [facility] [address] [place] [address] Consulting Physician Infectious Diseases 12/05/22 Markie Ryan MD [address] [facility] [address] [place] [address] Consulting Physician Nephrology 12/05/22 [place] [id number] [address] Consulting Physician Nephrology 10/22/23 Jaya Grier MD [address] [facility] [address] [place] [address] Consulting Physician Gastroenterology 02/01/24 documented as of this encounter
--- OUTSIDE RECORDS SUMMARY | 2024-07-04 04:00 | XMS_ITS | Encounter Summary ---
Author Organization [facility] Address [address] [place] [address] Care Team Providers Care Paper Tube Machine Operator Name Role Phone Cherelle Corcoran MD Primary Care Pro vider Mark Queen MD Unavailable [phone] Rudolph Welch MD Unavailable Markie Ryan MD Unavailable Jimbo Strauss MD Unavailable Jaya Grier MD Unavailable Encounter Details Date Type Department Care Team (Late st Contact Info) Description 05/26/2024 Telephone [facility] Primary Care at [address] [address] Cherelle Corcoran MD [address] [place] [id number] Social History Tobacco Use Types Packs/Day Years [...] materials from doctor or pharmacy Often 01/20/2024 [facility] Utilities Answer Date Recorded In the past 12 months has th e [employer], oil, or water [employer] threatened to shut off services in your [...] often do you attend chur ch or caodaism services? More than 4 times per year 04/20/2024 Do you belong to any clubs o r organizations such as advent groups, unions, fraternal or athletic groups, or [...] to sleep or slept in a senior living (including now)? No 10/30/2023 Housing Stability Vital Sign Answer Fuentes e Recorded In the last 12 months, was t here a time when you were not able to pay the mortgage or rent on time? No 04/20/2024 In the past 12 months, how m any times have you moved where you were living? 0 04/20/2024 At any time in the past 12 m [facility], were you homeless or living in a senior living (including now)? No 04/20/2024 Personal Safety Answer Date Recorded Have you ever been in or are you currently in a harmful physical or emotional relationship or is someone making you feel afraid or unsafe? Denies 04/19/2024 Comments No Sex and Gender Information Value Date Recorded Sex Assigned at Not on file Legal Sex Female 9:03 AM WATER VESSEL CAPTAIN Gender Identity Female 02/08/2020 6:39 PM CDT Sexual Orientation Not on file documented as of this encounter Miscellaneous Notes * Telephone Encounter - Valeria Jackson - 05/26/2024 11:15 AM CST Contacted patient's daughter, Areli, regarding her paperwork on behalf of her mother, Barbara. She states she no longer needs the paperwork completed, only a copy of the letter Dr Corcoran created for her for her employer. I printed the letter and gently reminded her she can pickle maker both at her appointment on 06-03-24. Patient verbally understood./ts R VESSEL CAPTAIN documented in this encounter Plan of Treatment Upcoming Encounters Date Type Department Care Team (Latest Contact Info) Description 07/13/2024 9:00 AM WATER VESSEL CAPTAIN Hospital Encounter [facility] [address] [place] [address] Jaya Grier MD [address] [facility] [address] [place] [address] 07/13/2024 9:00 AM WATER VESSEL CAPTAIN - 07/13/2024 9:30 AM WATER VESSEL CAPTAIN Surgery [facility] [address] [place] [address] Jaya Grier MD [address] [place] [address] [address] [place] [address] ESOPHAGOGASTRODUODENOSCOPY Scheduled Procedures Name Priority Associated Diagnoses Date/Ti me ESOPHAGOGASTRODUODENOSCOPY Anemia, unspecified type Gastritis without bleeding, unspecified chronicity, unspecified gastritis type 07/13/2024 9:00 AM WATER VESSEL CAPTAIN COLONOSCOPY Iron deficiency anemia due to chronic blood loss documented as of this encounter Visit Diagnoses Not on filedocumented in this encounter 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 06/26/2024 3:05 AM WATER VESSEL CAPTAIN documented as of this encounter Care Teams Paper Tube Machine Operator Relationship Specialty Start Date End Date Cherelle Corcoran MD PCP - General Family Medicine 08/30/19 Mark Queen MD Consulting Physician Infectious Diseases 01/10/20 Rudolph Welch MD [address] [facility] [address] [place] [address] Consulting Physician Infectious Diseases 12/05/22 Markie Ryan MD [address] [facility] [address] [place] [address] Consulting Physician Nephrology 12/05/22 [place] [id number] [address] Consulting Physician Nephrology 10/22/23 Jaya Grier MD [address] [facility] [address] [place] [address] Consulting Physician Gastroenterology 02/01/24 documented as of this encounter
--- OUTSIDE RECORDS SUMMARY | 2024-07-04 04:00 | XMS_ITS | Encounter Summary ---
Author Organization [facility] Healthcare Address [address] [place] [address] Care Team Providers Care Bottle Line Worker Name Role Phone Cherelle Corcoran MD Primary Care Pro vider Mark Queen MD Unavailable [phone] Rudolph Welch MD Unavailable Markie Ryan MD Unavailable [phone] Jimbo Strauss MD Unavailable [phone] Jaya Grier MD Unavailable Encounter Details Date Type Department Care Team (Late st Contact Info) Description 05/16/2024 Telephone [facility] Medical Group Primary Care at [address] [phone] Cherelle Corcoran MD [address] [place] [address] Social History Tobacco Use Types Packs/Day [...] materials from doctor or pharmacy Often 01/20/2024 [facility] Utilities Answer Date Recorded In the past 12 months has th e [employer], [employer], oil, or water [employer] threatened to shut off services in your [...] often do you attend chur ch or jewish services? More than 4 times per year 04/20/2024 Do you belong to any clubs o r organizations such as congregational groups, unions, fraternal or athletic groups, or [...] place to sleep or slept in a assisted (including now)? No 10/30/2023 Housing Stability Vital Sign Answer Fuentes e Recorded In the last 12 months, was t here a time when you were not able to pay the mortgage or rent on time? No 04/20/2024 In the past 12 months, how m any times have you moved where you were living? 0 04/20/2024 At any time in the past 12 m [facility], were you homeless or living in a assisted (including now)? No 04/20/2024 Personal Safety Answer Date Recorded Have you ever been in or are you currently in a harmful physical or emotional relationship or is someone making you feel afraid or unsafe? Denies 04/19/2024 Comments No Sex and Gender Information Value Date Recorded Sex Assigned at Not on file Legal Sex Female 9:03 AM LOBSTERMAN Gender Identity Female 02/08/2020 6:39 PM CDT Sexual Orientation Not on file documented as of this encounter Miscellaneous Notes * Telephone Encounter - Sandy Mota MA - 05/16/2024 1:20 PM CST Spoke with Ursula and she is aware letter is in [place]. Nothing further at this time. TERMAN * Telephone Encounter - Cherelle Corcoran MD - 05/16/2024 11:55 AM CST Letter in mychart TERMAN * Telephone Encounter - Elvia Diaz MA - 05/16/2024 11:29 AM CST Medical Question/Miscellaneous Caller???s Concern: Patient's daughter is stating the doctor does not need to fill out the form that she dropped off. She just needs something with the letter head of the doctors information stating that the daughter needs leave of absence for training of the home dialysis. Areli says she has an appointment with the doctor herself the beginning of May and she can talk about it with her then if needs discussed. Thank you so much. Does message need to be routed? Yes-Action Needed TERMAN documented in this encounter Plan of Treatment Upcoming Encounters Date Type Department Care Team (Latest Contact Info) Description 07/13/2024 9:00 AM LOBSTERMAN Hospital Encounter [facility] [address] [place] [address] Jaya Grier MD [address] [place] [address] DR GAINES [address] [place] [address] 07/13/2024 9:00 AM LOBSTERMAN - 07/13/2024 9:30 AM LOBSTERMAN Surgery [facility] [address] [place] [address] Jaya Grier MD [facility] [address] [place] [address] ESOPHAGOGASTRODUODENOSCOPY Scheduled Procedures Name Priority Associated Diagnoses Date/Ti md ESOPHAGOGASTRODUODENOSCOPY Anemia, unspecified type Gastritis without bleeding, unspecified chronicity, unspecified gastritis type 07/13/2024 9:00 AM LOBSTERMAN COLONOSCOPY Iron deficiency anemia due to chronic blood loss documented as of this encounter Visit Diagnoses Not on filedocumented in this encounter 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 06/26/2024 3:05 AM LOBSTERMAN documented as of this encounter Care Teams Bottle Line Worker Relationship Specialty Start Date End Date Cherelle Corcoran MD PCP - General Family Medicine 08/30/19 Mark Queen MD Consulting Physician Infectious Diseases 01/10/20 Rudolph Welch MD [address] [facility] [address] [place] [address] Consulting Physician Infectious Diseases 12/05/22 Markie Ryan MD [address] [facility] [address] [place] [address] Consulting Physician Nephrology 12/05/22 [place] [address] [address] Consulting Physician Nephrology 10/22/23 Jaya Grier MD [address] [facility] [address] GA[address] [place] [address] Consulting Physician Gastroenterology 02/01/24 documented as of this encounter
--- OUTSIDE RECORDS SUMMARY | 2024-07-04 04:00 | XMS_ITS | Encounter Summary ---
Author Organization [facility] Healthcare Address [address] [place] [address] Care Team Providers Care Detail Assembler Name Role Phone Cherelle Corcoran MD Primary Care Pro vider Mark Queen MD Unavailable [phone] Rudolph Welch MD Unavailable Markie Ryan MD Unavailable Jimbo Strauss MD Unavailable Jaya Grier MD Unavailable Reason for Visit * Reason Onset Date Comments Weakness - Generalized 06/27/2024 Encounter Details Date Type Department Care Team ([facility] st Contact Info) Description 06/27/2024 Nurse Triage [facility] Medical Group Primary Care at [address] [phone] Cherelle Corcoran MD [address] [place] [address] Social History Tobacco Use Types Packs/Day [...] materials from doctor or pharmacy Often 01/20/2024 [facility] Utilities Answer Date Recorded In the past 12 months has th e [employer], gas, oil, or water [employer] threatened to shut off services in your [...] often do you attend chur ch or religion services? More than 4 times per year 04/20/2024 Do you belong to any clubs o r organizations such as yazdanism groups, unions, fraternal or athletic groups, or [...] place to sleep or slept in a intermediate (including now)? No 10/30/2023 Housing Stability Vital [...] time in the past 12 m [facility], were you homeless or living in a intermediate (including now)? No 04/20/2024 Personal Safety Answer Date Recorded Have you ever been in or are you currently in a harmful physical or emotional relationship or is someone making you feel afraid or unsafe? Denies 04/19/2024 Comments No Sex and Gender Information Value Date Recorded Sex Assigned at Not on file Legal Sex Female 9:03 AM WEBSPHERE PORTAL ARCHITECT Gender Identity Female 02/08/2020 6:39 PM CDT Sexual Orientation Not on file documented as of this encounter Miscellaneous Notes * Telephone Encounter - Cherelle Corcoran MD - 06/28/2024 10:05 AM CST Thank you PHERE PORTAL ARCHITECT * Telephone Encounter - Sandy Mota MA - 06/28/2024 9:47 AM CST Spoke with pt daughter and she stated that the ambulance took her to the nearest ER which was [facility] in [facility]. She is currently admitted into [facility] to rule out stroke. They are doing a MRI today per pt daughter. She is still in the ER as they do not have a bed for her just yet upstairs in the hospital. I advised Ursula to keep us updated with any big changes via [employer] if she needs to. PHERE PORTAL ARCHITECT * Telephone Encounter - Cherelle Corcoran MD - 06/28/2024 9:13 AM CST Acknowledged, it does not look like she went to [facility]. Can you follow up to see if she went to [facility] [place] and what status is? thanks PHERE PORTAL ARCHITECT * Telephone Encounter - Ruby Chapman RN - 06/27/2024 4:12 PM CST Patient's daughter, CARLITA Singleton, called with C/O diarrhea, not moving her hands- cramped up, barely talking, not eating today. Caller is with patient. Patient is just looking but not answering her daughter's questions. Caller is unsure how many episodes of diarrhea patient has had. She has not gotten up to walk today. States she is slumped down in her chair but has been this way all day States patient's back is sweating because she has been sitting in her chair all day. Call EMS 911 Now. Reason for Disposition Sounds like a life-threatening emergency to the triager Protocols used: Weakness (Generalized) and Tyomput-Adidl-YT PHERE PORTAL ARCHITECT * Telephone Encounter - Ruby Chapman RN - 06/27/2024 4:05 PM CST Regarding: explosive diarrhea, not moving like her hands are cramped up, barely talking to her and she's not e ----- Message from Berenice Hobbs sent at 06/27/2024 4:02 PM WEBSPHERE PORTAL ARCHITECT ----- Symptom Based Call Chief Complaint(s): Areli gibson daughter called stating the patient had explosive diarrhea, not moving like her hands are cramped up, barely talking to her and she's not eating. Duration: today on 06/27/24 What type of symptom(s) is the patient experiencing? Non-Emergent. Is this a new or reoccurring symptom(s)? new What have you tried to help your symptom(s)? Nothing Why was appointment not scheduled? Requesting advice from clinical molybdenum steamer operator. Additional Comments: Caller stated the patient was suppose to go to dialysis today on 06/27/24 but didn't due to the weather, please advise. Does message need to be routed? Yes-Action Needed PHERE PORTAL ARCHITECT documented in this encounter Plan of Treatment Upcoming Encounters Date Type Department Care Team (Latest Contact Info) Description 07/13/2024 9:00 AM WEBSPHERE PORTAL ARCHITECT Hospital Encounter [facility] GI Lab [address] [place] [address] Jaya Grier MD [address] [place] [address] DR GA[address] [place] [address] 07/13/2024 9:00 AM WEBSPHERE PORTAL ARCHITECT - 07/13/2024 9:30 AM WEBSPHERE PORTAL ARCHITECT Surgery [facility] GI Lab [address] [place] [address] Jaya Grier MD [facility] [address] GAINES [address] [place] [address] ESOPHAGOGASTRODUODENOSCOPY Scheduled Procedures Name Priority Associated Diagnoses Date/Ti sd ESOPHAGOGASTRODUODENOSCOPY Anemia, unspecified type Gastritis without bleeding, unspecified chronicity, unspecified gastritis type 07/13/2024 9:00 AM WEBSPHERE PORTAL ARCHITECT COLONOSCOPY Iron deficiency anemia due to chronic blood loss documented as of this encounter Visit Diagnoses Not on filedocumented in this encounter Care Teams Detail Assembler Relationship Specialty Start Date End Date Cherelle Corcoran MD PCP - General Family Medicine 08/30/19 Mark Queen MD Consulting Physician Infectious Diseases 01/10/20 Rudolph Welch MD [address] [facility] [address] GA[address] [place] [address] Consulting Physician Infectious Diseases 12/05/22 Markie Ryan MD [address] [facility] [address] GA[address] [place] [address] Consulting Physician Nephrology 12/05/22 [place] [address] [address] Consulting Physician Nephrology 10/22/23 Jaya Grier MD [address] [facility] [address] GA[address] [place] [address] Consulting Physician Gastroenterology 02/01/24 documented as of this encounter
--- OUTSIDE RECORDS SUMMARY | 2024-07-04 04:00 | XMS_ITS | Encounter Summary ---
Author Organization [facility] Healthcare Address [address] [place] [address] Care Team Providers Care Percussion Teacher Name Role Phone Cherelle Corcoran MD Primary Care Pro vider Mark Queen MD Unavailable [phone] Rudolph Welch MD Unavailable Markie Ryan MD Unavailable [phone] Dulce Vega RN Unavailable [phone] Jimbo Strauss MD Unavailable [phone] Jaya Grier MD Unavailable Encounter Details Date Type Department Care Team (Latest Contact Info) Description 05/02/2024 4:42 PM HOURLY MANAGER - 05/02/2024 11:59 PM HOURLY MANAGER Hospital Encounter [facility] Diagnostic Imaging [address] [place] [address] COVID Discharge Disposition: Discharge to home or self care Social History Tobacco Use Types Packs/Day Years [...] materials from doctor or pharmacy Often 01/20/2024 [facility] Utilities Answer Date Recorded In the past 12 months has th e [employer], [employer], oil, or water [employer] threatened to shut off services in your [...] often do you attend chur ch or mormonism services? More than 4 times per year 04/20/2024 Do you belong to any clubs o r organizations such as evangelical groups, unions, fraternal or athletic groups, or [...] place to sleep or slept in a detention (including now)? No 10/30/2023 Housing Stability Vital [...] time in the past 12 m [facility], were you homeless or living in a detention (including now)? No 04/20/2024 Personal Safety Answer Date Recorded Have you ever been in or are you currently in a harmful physical or emotional relationship or is someone making you feel afraid or unsafe? Denies 04/19/2024 Comments No Sex and Gender Information Value Date Recorded Sex Assigned at Not on file Legal Sex Female 9:03 AM HOURLY MANAGER Gender Identity Female 02/08/2020 6:39 PM CDT Sexual Orientation Not on file documented as of this encounter Medications at Time of Discharge acetaminophen 500 mg capsule Take 2 capsules (1,000 mg total) by mouth 3 (three) times a day as needed for mild pain (pain scale 1-4) aspirin 81 mg chewable tablet Take 1 tablet (81 mg total) by mouth daily 90 tablet 1 4 atorvastatin (LIPITOR) 40 mg tablet Take 1 tablet (40 mg total) by mouth nightly 30 tablet 11 4 01/06/20 25 blood-glucose sensor (FreeStyle Madhav 3 Sensor) deviceIndications:T ype 2 diabetes mellitus with diabetic neuropathy, with long-term current use of insulin ([facility]) Use for continuous glucose monitoring. Change sensor every 14 days 6 each 3 4 docusate sodium (COLACE) 100 mg capsule Take 1 capsule (100 mg total) by mouth every 12 (twelve) hours 60 capsule 4 FeroSuL 325 mg (65 mg iron) tabletIndications:I audrey deficiency anemia, unspecified iron deficiency anemia type Take 1 tablet (325 mg total) by mouth daily with breakfast 90 tablet 1 4 flash glucose scanning reader miscIndications:Typ e 2 diabetes mellitus with diabetic neuropathy, with long-term current use of insulin ([facility]) Use Madhav 3 reader to scan Madhav 3 sensor 1 each 4 fluticasone propionate (FLONASE) 50 mcg/actuation nasal spray Administer 2 sprays into each nostril daily as needed for rhinitis FreeStyle Madhav 3 [place] mis Use Madhav 3 reader to scan Madhav 3 sensor 4 insulin glargine 100 unit/mL (3 mL) pen for injection Inject 18 Units under the skin nightly insulin lispro (HumaLOG, ADMELOG) 100 unit/mL vial for injection Inject 4 Units under the skin 3 (three) times a day before meals Gets 4 units at baseline then 1 unit for every 50 over 150 lidocaine (ASPERCREME) 4 % adhesive patch,medicated Place 1 patch on the skin daily as needed to lower back methoxy peg-epoetin beta (MIRCERA INJ) 75 mcg once every 2 weeks 4 04/18/20 25 NIFEdipine (NIFEdipine CC) 90 mg 24 hr tabletIndications:P rimary hypertension Take 1 tablet (90 mg total) by mouth daily 4 05/02/[address] (PROTONIX) 40 mg EC tabletIndications:G astroesophageal reflux disease without esophagitis TAKE 1 TABLET(40 MG) BY MOUTH TWICE DAILY 180 tablet 4 pen needle, diabetic (Easy Touch) 32 gauge x needleIndications:T ype 2 diabetes mellitus with diabetic neuropathy, with long-term current use of insulin (HCC) USE DIRECTED FOUR TIMES DAILY 100 each 3 4 polyethylene glycol (MIRALAX) 17 gram/dose bulk powder Take 17 g by mouth daily as needed (Constipation) 595 g 4 sucralfate (CARAFATE) 1 gram tabletIndications:G astritis, presence of bleeding unspecified, unspecified chronicity, unspecified gastritis type Take 1 tablet (1 g total) by mouth 4 (four) times a day 120 tablet 1 4 02/09/20 25 sucroferric oxyhydroxide 500 mg tablet,chewable Take 0.5 tablets by mouth 3 (three) times a day traMADoL (ULTRAM) 25 mg tabletIndications:A rthropathy of left shoulder Take 1 tablet (25 mg total) by mouth every 8 (eight) hours as needed for pain 90 tablet 4 azithromycin (ZITHROMAX) 250 mg tablet 4 05/18/20 24 benztropine (COGENTIN) 2 mg tabletIndications:P arkinsonism, unspecified Parkinsonism type (HCC) Take 1 tablet (2 mg total) by mouth daily 30 tablet 4 05/24/20 24 carvediloL (COREG) 6.25 mg tabletIndications:U ncontrolled hypertension,Chroni c diastolic congestive heart failure (CMS/HCC) (HCC) Take 1 tablet (6.25 mg total) by mouth 2 (two) times a day with meals 180 tablet 3 4 05/16/20 24 flash glucose sensor (FreeStyle Madhav 2 Sensor) kitIndications:Type 2 diabetes mellitus with diabetic neuropathy, with long-term current use of insulin (HCC) Use to continually monitor glucose, change every 14 days 6 kit 3 3 05/16/20 24 gabapentin (NEURONTIN) 100 mg capsuleIndications: Diabetic polyneuropathy associated with type 2 diabetes mellitus (CMS/HCC) (HCC) TAKE 1 CAPSULE BY MOUTH 3 TIMES PER WEEK AFTER HEMODIALYSIS 12 capsule 2 4 06/07/20 24 Lagevrio, EUA, 200 mg capsule (EUA) TAKE 4 CAPSULES BY MOUTH EVERY 12 HOURS FOR 5 DAYS 4 05/18/20 24 risperiDONE (RisperDAL) 2 mg tablet Take 1 tablet (2 mg total) by mouth nightly 30 tablet 4 05/27/20 24 documented as of this encounter Discharge Disposition Disposition Code Departure Means Destination Discharge to home or self care documented in this encounter Plan of Treatment Upcoming Encounters Date Type Department Care Team (Latest Contact Info) Description 07/13/2024 9:00 AM HOURLY MANAGER Hospital Encounter [facility] [address] [place] [address] Jaya Grier MD [address] [place] [address] [address] [place] [address] 07/13/2024 9:00 AM HOURLY MANAGER - 07/13/2024 9:30 AM HOURLY MANAGER Surgery [facility] [address] [place] [address] Jaya Grier MD [address] [place] [address] [address] [place] [address] ESOPHAGOGASTRODUODENOSCOPY Scheduled Procedures Name Priority Associated Diagnoses Date/Ti me ESOPHAGOGASTRODUODENOSCOPY Anemia, unspecified type Gastritis without bleeding, unspecified chronicity, unspecified gastritis type 07/13/2024 9:00 AM HOURLY MANAGER COLONOSCOPY Iron deficiency anemia due to chronic blood loss documented as of this encounter Procedures Procedure Name Priority Date/Time Associated Diagnosis Comments XR CHEST PA LATERAL 2 VIEWS Schedule Routine, Read Routine (OP Routine) 05/02/2024 5:00 PM HOURLY MANAGER COVID documented in this encounter Results * XR Chest PA Lateral 2 Views (05/02/2024 5:00 PM HOURLY MANAGER) Anatomical Region Laterality Modality Body, Chest N/A Computed Radiogr aphy 05/05/2024 9:08 PM HOURLY MANAGER Narrative 05/05/2024 9:09 PM HOURLY MANAGER EXAM DESCRIPTION: XR CHEST PA LATERAL 2 [...] 9:09 PM - Electronically signed by ??Larry LOPEZ: JOHN D: ??05/05/2024 9:09 PM T: ??05/05/2024 9:09 PM Report ID: [id number] Reading Location: ??[id number] Procedure Note Larry Escobar MD - 05/05/2024 [...] 9:09 PM - Electronically signed by Larry LOPEZ: JOHN Report ID: [id number] Reading Location: [id number] Cherelle Corcoran MD IMG XR PROCEDURES Final Result documented in this encounter Visit Diagnoses Diagnosis COVID Anemia, unspecified type Gastritis without bleeding, unspecified chronicity, unspecified gastritis type documented in this encounter 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 06/26/2024 3:05 AM HOURLY MANAGER documented as of this encounter Care Teams Percussion Teacher Relationship Specialty Start Date End Date Cherelle Corcoran MD PCP - General Family Medicine 08/30/19 Mark Queen MD Consulting Physician Infectious Diseases 01/10/20 Rudolph Welch MD [address] [facility] [address] [place] [address] Consulting Physician Infectious Diseases 12/05/22 Markie Ryan MD [address] [facility] [address] [place] [address] Consulting Physician Nephrology 12/05/22 Dulce Vega, ALIREZA [address] [place] [address] [address] [place] [address] Supervisor Blueprinting And Photocopy 10/07/23 05/03/24 [place] [address] [facility] [address] [place] [address] Consulting Physician Nephrology 10/22/23 Jaya Grier MD [address] [facility] [address] [place] [address] Consulting Physician Gastroenterology 02/01/24 documented as of this encounter
--- OUTSIDE RECORDS SUMMARY | 2024-07-04 04:00 | XMS_ITS | Referral Summary ---
Author Organization [facility] Address [address] [place] [address] Care Team Providers Care Insulation Extruder Operator Name Role Phone Cherelle Corcoran MD Primary Care Pro vider Mark Queen MD Unavailable [phone] Rudolph Welch MD Unavailable Markie Ryan MD Unavailable Jimbo Strauss MD Unavailable [phone] Jaya Grier MD Unavailable Encounters Date Type Department Care Team Description 06/27/2024 Nurse Triage [facility] [place] [address] [place] [address] [address] [place] [address] Cherelle Corcoran MD 06/17/2024 Orders Only [facility] Gastroenterology at [address] [place] [address] Jaya Grier MD Anemia, unspecified type (Primary Dx); Gastritis without bleeding, unspecified chronicity, unspecified gastritis type 06/01/2024 Letter (Out) [facility] Primary Care [address] [place] [address] [address] [place] [address] 05/31/2024 Telephone [facility] Primary Care at [place] [address] [place] [address] [address] [place] [phone] Cherelle Corcoran MD Medical Question/Miscellane ous 05/26/2024 Telephone [facility] Primary Care at [address] [place] [address] Cherelle Corcoran MD 05/25/2024 Telephone [facility] Behavioral Health [address] [facility] [address] [phone] Adryan Swenson MD Med Refill 05/18/2024 9:00 AM SUPERVISOR POWDERED METAL Office Visit [facility] Neurology [address] [facility] [address] [place] [phone] Jaguar Hopkins Si, MD Neuroleptic-induced parkinsonism (HCC) (Primary Dx); Lacunar infarction (HCC) 05/16/2024 Telephone [facility] Primary Care at [address] [place] [phone] Cherelle Corcoran MD 05/16/2024 9:50 AM SUPERVISOR POWDERED METAL Lab [facility] [address] [place] [address] Mixed hyperlipidemia 05/16/2024 8:40 AM SUPERVISOR POWDERED METAL Office Visit [facility] Endocrinology Metabolism and Lipid [address] [facility] Medical Office Building [address], [address] [place] [phone] Smith Gibbs MD Type 2 diabetes mellitus with diabetic neuropathy, with long-term current use of insulin (HCC) (Primary Dx); Primary hypertension; Mixed hyperlipidemia; ESRD on hemodialysis (CMS/HCC) (HCC); Diabetes, polyneuropathy (CMS/HCC) (HCC) 05/02/2024 4:42 PM SUPERVISOR POWDERED METAL - 05/02/2024 11:59 PM SUPERVISOR POWDERED METAL Hospital Encounter [facility] Diagnostic Imaging [address] [place] [address] COVID Discharge Disposition: Discharge to home or self care 05/02/2024 Telephone [facility] Primary Care at [address] [phone] Cherelle Corcoran MD 05/02/2024 3:30 PM SUPERVISOR POWDERED METAL Office Visit [facility] Primary Care at [address] [phone] Cherelle Corcoran MD Altered mental status, unspecified altered mental status type (Primary Dx); Primary hypertension; COVID; Iron deficiency anemia, unspecified iron deficiency anemia type; History of gastritis 04/27/2024 Telephone [facility] Primary Care at [address] [phone] Cherelle Corcoran MD JOY Questions 04/19/2024 4:47 PM CDT - 04/23/2024 7:32 PM CDT Hospital Encounter [facility] 5 Med Surg [address] [place] [address] Chris Wrihgt MD Mecker, Robert W. Jr., MD Bolton, Alexander Richard Gregory, DO Saravanan, Pathanjali, MD Unresponsive episode (Primary Dx); Metabolic encephalopathy; Altered mental status, unspecified altered mental status type; Weakness; Debility; Mild protein-calorie malnutrition (CMS/HCC) (HCC); ESRD on hemodialysis (CMS/HCC) (HCC) Discharge Disposition: Discharge to home or self care 04/22/2024 Documentation [facility] Hand & Shoulder [facility] [address] [address] Cesar Angeles, PT No Show 04/19/2024 Documentation [facility] Hand & Shoulder [address] [address] Lorie Castañeda, RETAIL SALES MERCHANDISER 04/18/2024 Telephone [facility] Primary Care at [address] [phone] Cherelle Corcoran MD Med Refill (benztropine (COGENTIN) 2 mg tablet) 04/12/2024 Telephone [facility] Medical Group Primary Care at [address] [place] [address] Cherelle Corcoran MD Authorization/Certi fication 04/12/2024 10:45 AM CDT Therapy [facility] Hand & Shoulder [address] [place] [address] Lorie Castañeda, RET[employer] SAL[employer] MERCHANDISER Left shoulder pain, unspecified chronicity (Primary Dx) 04/06/2024 9:45 AM CDT - 04/06/2024 11:59 PM CDT Hospital Encounter [facility] Diag Imaging [address] [place] [phone] Neck pain Discharge Disposition: Discharge to home or self care 04/06/2024 10:00 AM CDT Office Visit [facility] Orthopedics and Sports Medicine [address] [place] [address] [address] [place] [address] Brook Muhammad NP Neck pain; Foraminal stenosis of cervical region, diffuse bilateral; Arthropathy of cervical facet joint; Cervical spinal osteophytosis, multilevel; DDD (degenerative disc disease), cervical, C3-C4 through C6-C7; Numbness and tingling of left upper extremity; Myalgia of muscle of neck 04/05/2024 Documentation [facility] Hand & Shoulder [address] [place] [id number] Cesar Angeles, PT No Show from Last 3 Months Allergies No known active allergies Medications lidocaine [...] to scan Madhav 3 sensor 1 each Active insulin lispro (HumaLOG, ADMELOG) 100 unit/mL vial for injection Inject 4 Units under the skin 3 (three) times a day before meals Gets 4 units at baseline then 1 unit for every 50 over 150 Active polyethylene glycol (MIRALAX) 17 gram/dose bulk powder Take 17 g by mouth daily as needed (Constipation) 595 g Active FreeStyle Madhav 3 [place] misc Use Madhav 3 reader to scan Madhav [...] 2 mg tabletIndications :Parkinsonism, unspecified Parkinsonism type (HCC) Take 1 tablet (2 mg total) by mouth daily 90 tablet 3 024 2024 Active risperiDONE (RisperDAL) 2 mg tablet TAKE 1 TABLET(2 MG) BY MOUTH EVERY NIGHT 30 tablet 11 024 2024 Active gabapentin (NEURONTIN) 100 mg capsuleIndication s:Diabetic polyneuropathy associated with type 2 diabetes mellitus (CMS/HCC) ([facility]) TAKE 1 CAPSULE BY MOUTH 3 TIMES PER WEEK AFTER HEMODIALYSIS 40 capsule 1 024 Active omeprazole (PriLOSEC) 20 mg capsuleIndication s:Gastroesophagea l reflux disease, unspecified whether esophagitis present Take 1 capsule (20 mg total) by mouth daily 90 capsule 021 2021 Discontinued gabapentin (NEURONTIN) 100 mg capsuleIndication [...] with orthopedics, reviewed note Will have HONEY Elliottsey follow up on PA for tramadol Assessment [...] kidney disease) stage 4, GFR 15-29 ml/min ([facility]) 12/07/2023 Tinnitus of both ears 11/04/2023 Mixed conductive and sensori neural hearing loss of both ears 11/04/2023 Dysfunction of both eustachian tubes 11/04/2023 ESRD on hemodialysis ([facility]) 11/02/2023 Assessment & Plan (01/06/2024 12:53 PM CDT): History of ESRD on HD e//Sat. Missed HD session on 01/04 due to [...] 10/30/2023 Assessment & Plan (05/06/2024 7:49 AM SUPERVISOR POWDERED METAL): Reviewed hospital discharge summary Now resolved Upcoming appointment with neurology Leg swelling 10/07/2023 Bandemia 12/20/2022 Shortness of breath 12/13/2022 Chronic diastolic congestive heart failure (CMS/ HCC) 12/06/2022 Assessment & Plan (01/05/2024 10:46 PM CDT): Patient euvolemic at this time. -continue coreg, nifedipine, hydralazine for BP control -nephrology c/s for HD Bibasilar consolidations 12/06/2022 Movement disorder 12/06/2022 Abnormal urinalysis 11/07/2022 Anemia in chronic kidney disease, on chronic sara lysis 10/10/2022 Assessment & Plan (11/12/2023 1:01 PM CDT): Last h/h stable Assessment & Plan (07/24/2023 1:51 PM SUPERVISOR POWDERED METAL): Chronic/stable Parkinsonism 08/14/2022 Assessment & Plan (11/10/2023 4:43 PM CDT): Following with neurology On cogentin Assessment & Plan (07/24/2023 1:50 PM SUPERVISOR POWDERED METAL): Following with neurology On cogentin twice a day Assessment & Plan (01/23/2023 9:20 AM CDT): Following with neurology On cogentin twice a day Assessment & Plan (10/10/2022 10:41 AM CDT): Following with neurology On cogentin Assessment & Plan (08/14/2022 10:46 AM SUPERVISOR POWDERED METAL): Following with neurology, reviewed note On cogentin [...] walker. - PT/OT recommends SNF. -Plan Agueda Rizzo [facility] on 11/26 ? Assessment & Plan (11/24/2021 2:07 PM CDT): Deconditioning 2/2 prolonged hospitalization. Daughter reports that prior to her illness, she was independent with a walker. - PT/OT recommends SNF. -Plan Agueda Rizzo [facility] on 11/25. Assessment & Plan (11/23/2021 12:24 PM CDT): Deconditioning 2/2 prolonged hospitalization. Daughter reports that prior to her illness, she was independent with a walker. - PT/OT recommends SNF. -Plan Agueda Rizzo [facility] on 11/25. Assessment & Plan (11/22/2021 1:34 PM CDT): Deconditioning 2/2 prolonged hospitalization. Daughter reports that prior to her illness, she was independent with a walker. - PT/OT recommends SNF. -Plan Agueda Rizzo [facility] on 11/25. Assessment & Plan (11/21/2021 12:13 [...] care Assessment & Plan (08/14/2022 10:47 AM SUPERVISOR POWDERED METAL): Following with podiatry Assessment & Plan (04/02/2022 [...] - renal consulted regarding volume management, possible intermodal dispatcher dialysis planning, expedite OP f/u. Serologies and urine studies ordered. ED neg, compliments neg, cryoglobulin pending, ANCA pending, HIV neg. Continued -Added metolazone 2.5mg/daily per renal 09/13- with improving swelling, Cr bump to 2.33 so held further -Transitioned to PO agents prior to DC (09/17) with ongoing clinical improvement. Goal weight 155lbs -Home with family at [place], hospital aide consulted to review salt restrictions. -outpatient BMP, [...] - renal consulted regarding volume management, possible intermodal dispatcher dialysis planning, expedite OP f/u. Serologies and urine studies ordered. ED neg, compliments neg, cryoglobulin pending, ANCA pending, HIV neg. Continued -Added metolazone 2.5mg/daily per renal 09/13- with improving swelling, Cr bump to 2.33 so held further -Anticipate likely transition to PO agents prior to DC (?09/17) with ongoing clinical improvement. Goal weight 155lbs -Home with family at [place], hospital aide consulted to review salt restrictions. Assessment & [...] - renal consulted regarding volume management, possible longterm dialysis planning, expedite OP f/u. Serologies and urine studies ordered. -Added metolazone 2.5mg/daily per renal. -Anticipate likely transition to PO agents prior to DC with ongoing clinical improvement. Goal weight 145-150lbs -Home with family at [place], hospital aide consulted to review salt restrictions. Assessment & [...] - renal consulted regarding volume management, possible longterm dialysis planning, expedite OP f/u. Serologies and urine studies ordered. -Added metolazone 2.5mg/daily per renal. -Anticipate likely transition to PO agents prior to DC with ongoing clinical improvement. Goal weight 145-150lbs Assessment & Plan (09/13/2021 3:51 PM CDT): Due to progressive CRF4. Presents with increasing swelling, 6lb weight gain, daughter voicing concerns of exertional dyspnea/orthopnea as well. Last echo in 2020 grossly normal, per cards note had recent [...] - renal consulted regarding volume management, possible intermodal dispatcher dialysis planning, expedite OP f/u. Serologies and [...] - renal consulted regarding volume management, possible intermodal dispatcher dialysis planning, expedite OP f/u. Assessment & [...] net neg 1/2-1L/day. -consider renal consult regarding longterm dialysis planning, expedite OP f/u. Assessment & [...] net neg 1/2-1L/day. -consider renal consult regarding intermodal dispatcher dialysis planning. Assessment & Plan (09/06/2021 10:28 [...] neurology Assessment & Plan (07/24/2023 1:50 PM SUPERVISOR POWDERED METAL): Following with neurology Assessment & Plan (01/23/2023 9:18 AM CDT): Following with neurology Assessment & Plan (10/10/2022 10:37 AM CDT): Following with neurology, ordered MRI, # given to son to schedule Assessment & Plan (06/09/2022 3:37 PM SUPERVISOR POWDERED METAL): Needs to reschedule with neurology Looking into [facility], but declined for [facility] for schizoaffective disorder Assessment & Plan (01/14/2022 9:05 AM CDT): Following with psychiatry Assessment & Plan (09/03/2021 3:28 PM CDT): Chronic, stable. Alert, oriented to self, current place. Continue to monitor. Clock drawing test at next interval. Consideration for Aricept. Encounter for Medicare annual wellness exam 12/21 Assessment & Plan (11/10/2023 4:42 PM CDT): Reviewed [facility] & PHQ Screening PHQ-2 Total Score (If total score is 3 or more points, staff should administer the PHQ-9): 2 Hearing/vision screening reviewed, referrals placed as needed Fall risk reviewed Reviewed medications and supplements Specialists: endocrine, nephrology, cardiology, neurology, psychiatry evidence of cognitive impairment HCM: orders placed as needed Assessment & Plan (06/09/2022 3:37 PM SUPERVISOR POWDERED METAL): Reviewed [facility] & PHQ Screening PHQ-2 Total Score (If total score is 3 or more points, staff should administer the PHQ-9): 0 Hearing/vision screening reviewed, referrals placed as needed Fall risk reviewed Reviewed medications and supplements Specialists: endocrine, nephrology, cardiology, neurology evidence of cognitive impairment HCM: orders placed as needed Assessment & Plan (01/08/2021 3:44 PM CDT): Reviewed [facility] & PHQ Screening PHQ-2 Total Score (If [...] UTD, colonoscopy UTD Schizoaffective disorder, bipolar type ([facility]) 10/10/2020 Assessment & Plan (03/16/2024 3:52 PM [...] psychiatry Assessment & Plan (07/24/2023 1:50 PM SUPERVISOR POWDERED METAL): Following with psychiatry Assessment & Plan (01/23/2023 [...] discussed. Assessment & Plan (08/09/2021 5:42 AM SUPERVISOR POWDERED METAL): Following with psychiatry Assessment & Plan (08/07/2021 3:28 PM SUPERVISOR POWDERED METAL): Chronic condition, switch to Haldol and has had multiple different problems including acute kidney failure in infectious process. Records not available at outside hospital-[facility]. Confounded by delirium. Currently experiencing delirium will discontinue Haldol and return to Risperdal as previously taking. Risperdal was discontinued due to poorly-controlled diabetes. Monitor in 1 to 2 weeks. Assessment & Plan (07/03/2021 7:24 AM SUPERVISOR POWDERED METAL): Following with psychiatry D/c risperidone, started on haldol Assessment & Plan (07/01/2021 9:16 PM SUPERVISOR POWDERED METAL): Chronic, stable. 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 The patient previously lived on her own and was observed to be hoarding. See additional problems-dementia. Evaluate again in 1 month after starting Risperdal. Mixed hyperlipidemia 04/03/2020 Assessment & Plan (11/10/2023 4:37 PM CDT): Continue statin Assessment & Plan (07/24/2023 1:49 PM SUPERVISOR POWDERED METAL): Continue statin Assessment & Plan (01/23/2023 9:18 AM CDT): Continue statin Assessment & Plan (10/10/2022 10:47 AM CDT): Continue statin Assessment & Plan (08/14/2022 10:43 AM SUPERVISOR POWDERED METAL): Continue statin Assessment & Plan (06/09/2022 3:33 PM SUPERVISOR POWDERED METAL): Continue statin & 81mg ASA Assessment & [...] statin Assessment & Plan (08/05/2021 10:36 AM SUPERVISOR POWDERED METAL): Continue 40mg atorvastatin Assessment & Plan (10/02/2020 4:34 PM CDT): Uncontrolled, cardiology increased atorvastatin to 40mg, advised to take two 20mg tablets until runs out Assessment & Plan (08/28/2020 12:12 PM SUPERVISOR POWDERED METAL): On atorvastatin Assessment & Plan (07/24/2020 2:06 PM SUPERVISOR POWDERED METAL): Stressed importance of taking atorvastatin Assessment & Plan (04/30/2020 1:00 PM SUPERVISOR POWDERED METAL): On atorvastatin 20mg Iron deficiency anemia 04/02/2020 Assessment & Plan (05/06/2024 7:51 AM SUPERVISOR POWDERED METAL): Recommend discussing IV iron with nephrology Assessment & Plan (10/02/2020 4:35 PM CDT): Continue iron Assessment & Plan (05/28/2020 1:51 PM SUPERVISOR POWDERED METAL): Iron levels recently normalized, but still anemic, repeat today Assessment & Plan (04/16/2020 11:45 AM CDT): Recent iron within normal limits, H/H improving, continue supplementation until normalized Gastroesophageal reflux disease without esophagi tis 04/02/2020 Assessment & Plan (01/05/2024 10:40 PM CDT): -continue famotidine Assessment & Plan (10/02/2020 4:35 PM CDT): Continue omeprazole Assessment & Plan (07/24/2020 2:06 PM SUPERVISOR POWDERED METAL): Recurrent symptoms off omeprazole, restart Assessment & Plan (05/28/2020 1:51 PM SUPERVISOR POWDERED METAL): Iron levels recently normalized, but still anemic, repeat today Assessment & Plan (04/02/2020 1:26 PM CDT): Start PPI History of amputation of toe ([facility]/HCC) 0 Assessment & Plan (01/08/2021 3:50 PM CDT): Stable Assessment & Plan (10/02/2020 4:35 PM CDT): Stable Assessment & Plan (04/30/2020 1:00 PM SUPERVISOR POWDERED METAL): Stable Assessment & Plan (02/14/2020 5:15 PM CDT): Healing well Following with surgeon/wound clinic Assessment & Plan (01/19/2020 5:17 PM CDT): Has home health Following with vascular Primary hypertension 12/13/2019 Assessment & Plan (05/06/2024 7:48 AM SUPERVISOR POWDERED METAL): BP controlled Continue nifedipine, hold prior to [...] x1 with HD. [facility] and nifedipine in [...] amlodipine Assessment & Plan (08/03/2023 4:02 PM SUPERVISOR POWDERED METAL): BP uncontrolled Start 5mg amlodipine Assessment & Plan (07/24/2023 1:49 PM SUPERVISOR POWDERED METAL): Blood pressure borderline today off medications Assessment & Plan (01/23/2023 9:18 AM CDT): Blood pressure borderline low today, asymptomatic Checking labs Advised to decrease amlodipine to 5mg and monitor blood pressure Assessment & Plan (10/10/2022 10:50 AM CDT): Continue coreg 6.25mg twice a day & 40mg valsartan Assessment & Plan (08/14/2022 10:43 AM SUPERVISOR POWDERED METAL): Blood pressure at goal, continue coreg 6.25mg twice a day Assessment & Plan (06/09/2022 3:32 PM SUPERVISOR POWDERED METAL): Blood pressure at goal, continue coreg 3.125mg [...] day Assessment & Plan (08/05/2021 10:35 AM SUPERVISOR POWDERED METAL): Blood pressure at goal Increase amlodipine to 10mg & d/c hydralazine per cardiology Assessment & Plan (05/28/2021 4:59 PM SUPERVISOR POWDERED METAL): Blood pressure above goal, but previously within [...] lisinopril Assessment & Plan (08/28/2020 12:12 PM SUPERVISOR POWDERED METAL): Blood pressure at goal Continue lisinopril Assessment & Plan (07/24/2020 2:05 PM SUPERVISOR POWDERED METAL): Blood pressure at goal Continue lisinopril Assessment & Plan (05/28/2020 1:50 PM SUPERVISOR POWDERED METAL): BP borderline Continue 10mg lisinopril Continue to monitor Assessment & Plan (04/30/2020 12:32 PM SUPERVISOR POWDERED METAL): BP borderline Continue 10mg lisinopril Continue to [...] +SSI Assessment & Plan (07/24/2023 1:49 PM SUPERVISOR POWDERED METAL): Lab Results Component Value Date HGBA1C 8.1 [...] trulicity Assessment & Plan (08/14/2022 10:42 AM SUPERVISOR POWDERED METAL): Following with endocrine Continue lantus, 12 units humalog TIDAC & 1.5mg trulicity Assessment & Plan (06/09/2022 3:32 PM SUPERVISOR POWDERED METAL): Following with endocrine Home blood sugar at [...] for strict med oversight by family at [place] reviewed with daughter this admit. Assessment & [...] for strict med oversight by family at [place] reviewed with daughter this admit. Assessment & [...] and nephropathy. Med oversight by family at [place]. Assessment & Plan (09/14/2021 12:22 PM CDT): [...] as she had discussed this with outpatient pathology laboratory aide - repeat A1c - resume home statin, not currently on feliciano due to kidney function Assessment & Plan (08/05/2021 10:35 AM SUPERVISOR POWDERED METAL): Continue 15 units lantus twice a day Assessment & Plan (07/03/2021 7:24 AM SUPERVISOR POWDERED METAL): Fasting blood sugar significantly improved Risperidone changed Continue current meds Continue to monitor Assessment & Plan (06/18/2021 11:22 AM SUPERVISOR POWDERED METAL): Increase lantus to 60 units nightly, if blood sugar still above goal after 1 week split into 33 units twice a day Follow up with blood sugar via portal in 2 weeks Continue jardiance 25mg Continue trulicity 4.5mg weekly Assessment & Plan (05/28/2021 4:58 PM SUPERVISOR POWDERED METAL): Increase lantus to 55 units nightly Continue [...] weekly Assessment & Plan (08/28/2020 1:00 PM SUPERVISOR POWDERED METAL): DM Care Plan: Meds: Lantus - continue [...] recheck Assessment & Plan (07/24/2020 2:05 PM SUPERVISOR POWDERED METAL): Formulary change 2/2 insurance, switched to trulicity. Will increase to 1.5mg Assessment & Plan (05/28/2020 1:50 PM SUPERVISOR POWDERED METAL): Check a1c Barbara isn't checking blood sugar regularly, but when she is she has several >200 so I lean towards increasing if a1c>7 Assessment & Plan (04/30/2020 12:31 PM SUPERVISOR POWDERED METAL): Blood sugar improved on 40 units basaglar [...] was in the room. Recently treated at [facility] for PNA with prolonged course of [...] was in the room. Recently treated at [facility] for PNA with prolonged course of [...] was in the room. Recently treated at [facility] for PNA with prolonged course of [...] was in the room. Recently treated at [facility] for PNA with prolonged course of [...] was in the room. Recently treated at [facility] for PNA with prolonged course of [...] was in the room. Recently treated at [facility] for PNA with prolonged course of [...] was in the room. Recently treated at [facility] for PNA with prolonged course of [...] was in the room. Recently treated at [facility] for PNA with prolonged course of [...] was in the room. Recently treated at [facility] for PNA with prolonged course of [...] was in the room. Recently treated at [facility] for PNA with prolonged course of [...] 11/10/2023 Assessment & Plan (08/14/2022 10:44 AM SUPERVISOR POWDERED METAL): Continue eliquis Assessment & Plan (06/09/2022 3:36 PM SUPERVISOR POWDERED METAL): Continue eliquis Assessment & Plan (04/02/2022 6:05 [...] 10/10/2022 Assessment & Plan (08/07/2021 3:30 PM SUPERVISOR POWDERED METAL): Subacute, persistent, hospitalized recently. She is alert [...] Impression: Patient recently had MRI performed at [facility] which revealed acute osteomyelitis to the distal [...] 08/28/2020 Assessment & Plan (05/28/2020 1:52 PM SUPERVISOR POWDERED METAL): Encouraged to follow up with wound clinic for reassessment Assessment & Plan (04/30/2020 12:31 PM SUPERVISOR POWDERED METAL): Following with wound clinic Assessment & Plan [...] acute osteomyelitis on recent MRI performed at [facility]. She is being treated with [...] nightly Assessment & Plan (08/14/2022 10:42 AM SUPERVISOR [employer]): Continue lyrica 150mg nightly Assessment & Plan (06/09/2022 3:32 PM SUPERVIS[employer]): Continue lyrica 150mg nightly Assessment & Plan [...] status. Assessment & Plan (05/28/2021 4:58 PM SUPERVIS[employer]): Continue lyrica 150mg nightly Assessment & Plan [...] gabapentin Assessment & Plan (08/28/2020 1:00 PM SUPERVIS[employer]): On gabapentin Assessment & Plan (07/24/2020 2:05 PM SUPERVISOR [employer]): Continue gabapentin Assessment & Plan (04/02/2020 1:22 [...] of great toe of right foot 01/23/2023 Immunizations Name Administration Dates Next Due Heplisav-b (Hepatitis B) 03/10/2024,12/20,12/10/2023,11/04 Influenza Nasal, Unspecified 04/17/2017 Influenza, Quadrivalent, Hig h Dose, Preservative Free, Intrr 08/07/2022,04/01/2022,03/07/2021,04/02 Influenza, Trivalent, Adjuva nted, Intramuscular 04/05/2024,04/06/2019 Influenza, Trivalent, IM (MDV) 04/17/2017 PPD TEST 10/22/2023 Descomplica SARS-CoV-2 Monovalent Vaccination (12+ Yrs) PURPLE 06/11/2021,10/13/2020,09/22/2020 Pneumococcal Conjugate PCV 13 03/31/2017 Pneumococcal Conjugate Pcv20 04/05/2024 Pneumococcal Polysaccharide PPV23 01/20/2019 Social History Tobacco Use Types Packs/Day Years [...] materials from doctor or pharmacy Often 01/20/2024 [facility] Utilities Answer Date Recorded In the past 12 months has th e electric, gas, oil, or water company threatened to shut off services in your [...] often do you attend chur ch or yazdanism services? More than 4 times per year 04/20/2024 Do you belong to any clubs o r organizations such as confucianist groups, unions, fraternal or athletic groups, or [...] place to sleep or slept in a mcc (including now)? No 10/30/2023 Housing Stability Vital Sign Answer Fuentes e Recorded In the last 12 months, was t here a time when you were not able to pay the mortgage or rent on time? No 04/20/2024 In the past 12 months, how m any times have you moved where you were living? 0 04/20/2024 At any time in the past 12 m [facility], were you homeless or living in a mcc (including now)? No 04/20/2024 Personal Safety Answer Date Recorded Have you ever been in or are you currently in a harmful physical or emotional relationship or is someone making you feel afraid or unsafe? Denies 04/19/2024 Comments No Sex and Gender Information Value Date Recorded Sex Assigned at Not on file Legal Sex Female 9:03 AM SUPERVIS[employer] Gender Identity Female 02/08/2020 6:39 PM CDT Sexual Orientation Not on file Last Filed Vital Signs Vital Sign Reading Time Taken Comments Blood Pressure 128/50 05/18/2024 9:04 AM [employer] Pulse 76 05/18/2024 9:04 AM [employer] Temperature 36.2 ??C (97.1 ??F) 05/02/2024 3:36 PM CS T Respiratory Rate 18 05/02/2024 3:36 PM [employer] Oxygen Saturation 95% 05/18/2024 9:04 AM [employer] Inhaled Oxygen Concentration - - Weight 60.8 kg (134 lb) 05/18/2024 9:04 AM [employer] Height 157.5 cm (5' 2 ) 05/18/2024 9:04 AM [employer] Body Mass Index 24.51 05/18/2024 9:04 AM [employer]PERVIS[employer] Plan of Treatment Upcoming Encounters Date Type Department Care Team (Latest Contact Info) Description 07/13/2024 9:00 AM SUPERVIS[employer] Hospital Encounter [facility] [address] [place] [address] Jaya Grier MD [address] [facility] [address] [place] [address] 07/13/2024 9:00 AM [employer] - 07/13/2024 9:30 AM [employer] Surgery [facility] [address] [place] [address] Jaya Grier MD [facility] [facility] [address] [place] [address] ESOPHAGOGASTRODUODENOSCOPY Scheduled Procedures Name Priority Associated Diagnoses Date/Ti me ESOPHAGOGASTRODUODENOSCOPY Anemia, unspecified type Gastritis without bleeding, unspecified chronicity, unspecified gastritis type 07/13/2024 9:00 AM [employer]PER[employer] COLONOSCOPY Iron deficiency anemia due to chronic blood loss Medical Devices Implanted Type Area Inspector Floor Device Identifier Shelf Expiration Date Model / Serial / Lot [employer] Duramax Vascpak Safesheath D-Pro 15.5fr 24cm Kit Catheter [id number] - [id number] Implanted:Qty: 1 on 10/15/2023 at [facility] [employer] 10/19/2025 [id number] / / [id number] Procedures Procedure Name Priority Date/Time Associated Diagnosis Comments LIPID PANEL Routine 05/16/2024 10:14 AM [employer] Mixed hyperlipidemia POCT HEMOGLOBIN A1C Routine 05/16/2024 9:12 AM SUPERVIS[employer] Type 2 diabetes mellitus with diabetic neuropathy, with long-term current use of insulin (HCC) XR CHEST PA LATERAL 2 VIEWS Schedule Routine, Read Routine (OP Routine) 05/02/2024 5:00 PM [employer] COVID POCT GLUCOSE DEVICE Routine 04/23/2024 4:39 [...] GLUCOSE DEVICE Routine 04/22/2024 12:15 PM CDT HAT BRAIDER EVALUATE AND TREAT VIDEOFLUOROSCOPIC SWALLOW STUDY Routine [...] Routine) 04/06/2024 10:08 AM CDT Neck pain OR INJECTION SINGLE/THREAD CLIPPER TRIGGER POINT 1/2 MUSCLES Routine 04/06/2024 10:00 [...] Results * Lipid panel (05/16/2024 10:14 AM SUPERVIS[employer]) Cholesterol 160 30 - 199 mg/dL Comment: [...] NILSA DIAS Blood 05/16/2024 10:1 4 AM [employer] 05/16/2024 10:50 AM SUPERVIS[employer] Narrative NILSA MUELLERCH - 05/16/2024 11:23 AM SUPERVIS[employer] These lab test should be done fasting. This means do not eat or drink for at least 12 hours prior to getting your blood drawn. Smith Gibbs MD LAB BLOOD ORDERABLES Final R esult NILSA ZARATEWCH [address] [facility] [place] [address] * POCT hemoglobin A1c (05/16/2024 9:12 AM SUPERVISOR [employer]) Hemoglobin A1C, POC 6.5 4.0 - 5.6 % Blood 05/16/2024 9:12 AM SUPERVISOR [employer] Smith Gibbs MD POINT OF CARE TEST ORDERABLE S Final Result * XR Chest PA Lateral 2 Views (05/02/2024 5:00 PM SUPERVIS[employer]) Anatomical Region Laterality Modality Body, Chest N/A Computed Radiogr aphy 05/05/2024 9:08 PM SUPERVISOR [employer] Narrative 05/05/2024 9:09 PM [employer]PER[employer] EXAM DESCRIPTION: XR CHEST PA LATERAL 2 [...] PM T: ??05/05/2024 9:09 PM Report ID: [id number] Reading Location: ??[id number] Procedure Note Larry Escobar MD - 05/05/2024 [...] Larry Escobar M.D. MJ: JOHN Report ID: [id number] Reading Location: [id number] us Cherelle Corcoran MD IMG XR PROCEDURES Final Result * POCT glucose (04/23/2024 4:39 PM CDT) [facility] Signature Glucose, POC 150 70 - 199 mg/dL Comment:Testing performed by : [facility], [address] [place] [address], [place]., [address] Blood 04/23/2024 4:39 PM CDT 04/23/2024 4:39 PM CDT us Cheryl Slater MD LAB POCT ORDERABLES - DE VICE Final Result NILSA [address] [place] [address] * POCT glucose (04/23/2024 2:02 PM CDT) [facility] Glucose, POC 184 70 - 199 mg/dL Comment:Testing performed by : [facility], [address] [place] [address]., [address] Blood 04/23/2024 2:02 PM CDT 04/23/2024 2:02 PM CDT us Cheryl Slater MD LAB POCT ORDERABLES - DE VICE Final Result NILSA [address] [address] * (ABNORMAL) eGFR (04/23/2024 1:16 PM CDT) [facility] eGFR 20(L) >=60 mL/min/1. 73 m2 Comment: [...] was last reviewed 2021. Testing performed by: [address] [address] Blood 04/23/2024 1:16 PM CDT 04/23/2024 1:21 PM CDT us Cheryl Slater MD LAB BLOOD ORDERABLES Fin al Result [facility] [address] [facility] Department [place] [address] * Differential, auto (04/23/2024 1:16 PM CDT) Neutrophil abs 5.6 1.5 - 6.5 K/cumm Comment:Testing performed by : [address] [address] Imm gran abs 0.0 0.0 - 0.1 K/cumm NILSA Comment:Testing performed by : [address] [address] Lymphocyte abs 2.1 0.8 - 3.3 K/cumm INLSA Comment:Testing performed by : [address] [address] Monocyte abs 0.6 0.2 - 0.8 K/cumm NILSA Comment:Testing performed by : [address] [address] Eosinophil abs 0.1 0.0 - 0.5 K/cumm NILSA Comment:Testing performed by : [address] [address] Basophil abs 0.0 0.0 - 0.1 K/cumm NILSA Comment:Testing performed by : [address] [address] Neutrophil pct 67.0 % NILSA Comment: Interpretive Data Percent cell count reference ranges are not reported, since discordance with absolute values may lead to misinterpretation of CBC data. Current Interpretive Data was last revised on 2017. Testing performed by: [address] [address] Imm gran pct 0.5 % [facility] Comment: Interpretive Data Percent cell count reference ranges are not reported, since discordance with absolute values may lead to misinterpretation of CBC data. Current Interpretive Data was last revised on 2017. Testing performed by: [address] [address] Lymphocyte pct 24.7 % [facility] Comment: Interpretive Data Percent cell count reference ranges are not reported, since discordance with absolute values may lead to misinterpretation of CBC data. Current Interpretive Data was last revised on 2017. Testing performed by: [address] [address] Monocyte pct 6.6 % [facility] Comment: Interpretive Data Percent cell count reference ranges are not reported, since discordance with absolute values may lead to misinterpretation of CBC data. Current Interpretive Data was last revised on 2017. Testing performed by: [address] [address] Eosinophil pct 1.0 % [facility] Comment: Interpretive Data Percent cell count reference ranges are not reported, since discordance with absolute values may lead to misinterpretation of CBC data. Current Interpretive Data was last revised on 2017. Testing performed by: [address] [address] Basophil pct 0.2 % [facility] Comment: Interpretive Data Percent cell count reference ranges are not reported, since discordance with absolute values may lead to misinterpretation of CBC data. Current Interpretive Data was last revised on 2017. Testing performed by: [address] [address] Blood 04/23/2024 1:16 PM CDT 04/23/2024 1:21 PM CDT us Cheryl Slater MD LAB BLOOD ORDERABLES Fin al Result NILSA [address] [facility] Department [place] [address] * (ABNORMAL) CBC with auto differential (04/23/2024 1:16 PM CDT) [facility] WBC 8.3 3.8 - 9.9 K/cumm Comment:Testing performed by : [address] [address] Hgb 9.5(L) 11.9 - 15.5 g/dL NILSA Comment:Testing performed by : [address] [address] Hct 28.2(L) 35.6 - 45.5 % NILSA Comment:Testing performed by : [address] [address] Plt 176 150 - 400 K/cumm NILSA Comment:Testing performed by : [address] [address] MPV 10.5 9.1 - 12.3 fL NILSA Comment:Testing performed by : [address], [address] RBC 3.10(L) 3.90 - 5.20 M/cumm NILSA Comment:Testing performed by : [address], [address] MCV 91.0 81.3 - 96.4 fL NILSA Comment:Testing performed by : [address] [address] MCH 30.6 27.1 - 33.3 pg NILSA Comment:Testing performed by : [address], [address] MCHC 33.7 32.3 - 35.7 g/dL NILSA Comment:Testing performed by : [address] [address] RDW CV 14.4 11.1 - 14.9 % NILSA Comment:Testing performed by : [address], [address] RDW SD 47.1 35.7 - 48.1 fL NILSA Comment:Testing performed by : [address], [address] NRBC abs 0.02(H) 0.00 - 0.01 K/cumm NILSA Comment:Testing performed by : [address] [address] Blood 04/23/2024 1:16 PM CDT 04/23/2024 1:21 PM CDT Cheryl Slater MD LAB BLOOD ORDERABLES Fin al Result Performing Organization Address [facility] Co de Phone Number [address] [place] [employer] [place] [address] * (ABNORMAL) Phosphorus (04/23/2024 1:16 PM CDT) Phosphorus, pl 1.9(L) 2.3 - 4.5 mg/dL Comment:Testing performed by : [address] [address] Blood 04/23/2024 1:16 PM CDT 04/23/2024 1:21 PM CDT Cheryl Slater MD LAB BLOOD ORDERABLES Fin al Result Performing Organization Address [facility] de Phone Number [address] [place] [address] * (ABNORMAL) Basic metabolic panel (04/23/2024 1:16 PM CDT) Sodium 130(L) 135 - 145 mmol/L Comment:Testing performed by : [address] [address] Potassium, pl 4.4 3.3 - 4.9 mmol/L NILSA Comment:Testing performed by : [address] [address] Chloride 94(L) 97 - 110 mmol/L NILSA Comment:Testing performed by : [address] [address] CO2 25 22 - 32 mmol/L NILSA Comment:Testing performed by : [address] [address] Anion gap 11 2 - 15 mmol/L NILSA RODRIGES Comment:Testing performed by : [address] [address] BUN 24 6 - 25 mg/dL NILSA Comment:Testing performed by : [address] [address] Creatinine 2.50(H) 0.60 - 1.10 mg/dL NILSA Comment:Testing performed by : [address] [address] Glucose 194 70 - 199 mg/dL NILSA [...] was last revised 2022. Testing performed by: [address] [address] Calcium 8.5 8.5 - 10.3 mg/dL NILSA Comment:Testing performed by : [address] [address] Blood 04/23/2024 1:16 PM CDT 04/23/2024 1:21 PM CDT us Cheryl Slater MD LAB BLOOD ORDERABLES Fin al Result [facility] [address] [facility] Department [place] [address] * POCT glucose (04/23/2024 8:49 AM CDT) [facility] Signature Glucose, POC 115 70 - 199 mg/dL Comment:Testing performed by : [address] [address] Blood 04/23/2024 8:49 AM CDT 04/23/2024 8:49 AM CDT us Cheryl Slater MD LAB POCT ORDERABLES - DE VICE Final Result NILSA [facility] [place] [employer] [place] [address] * POCT glucose (04/22/2024 8:40 PM CDT) Glucose, POC 174 70 - 199 mg/dL Comment:Testing performed by : [address] [address] Glucose comment 1 Use This Result NILSA RODRIGES Comment:Testing performed by : [address] [address] Glucose comment 2 RN/MD Notified NILSA RODRIGES Comment:Testing performed by : [address] [address] Blood 04/22/2024 8:40 PM CDT 04/22/2024 8:40 PM CDT us Cheryl Slater MD LAB POCT ORDERABLES - DE VICE Final Result Performing Organization Address [facility] Co de Phone Number NILSA [address] [place] [place] [address] * POCT glucose (04/22/2024 5:55 PM CDT) Glucose, POC 110 70 - 199 mg/dL Comment:Testing performed by : [address] [address] Blood 04/22/2024 5:55 PM CDT 04/22/2024 5:55 PM CDT Cheryl Slater MD LAB POCT ORDERABLES - DE VICE Final Result NILSA [address] [place] [place] [address] * (ABNORMAL) POCT glucose (04/22/2024 12:15 PM CDT) Glucose, POC 226(H) 70 - 199 mg/dL Comment:Testing performed by : [address] [address] Glucose comment 1 Use This Result NILSA RODRIGES Comment:Testing performed by : [address] [address] Glucose comment 2 RN/MD Notified NILSA RODRIGES Comment:Testing performed by : [address] [address] Blood 04/22/2024 12:1 5 PM CDT 04/22/2024 12:15 PM CDT us Cheryl Slater MD LAB POCT ORDERABLES - DE VICE Final Result Performing Organization Address City/State/[facility] Co de Phone Number NILSA [address] [facility] Department [place] [address] * HAT BRAIDER Evaluate and Treat (VFSS) (04/22/2024 12:10 PM CDT) Narrative Becky Gold SLP - 04/22/2024 12:10 PM CDT Becky Gold SLP ? 04/22/2024 ??1:21 PM [facility] Inpatient Speech-Language Pathology Modified Barium Swallow Study [...] ??(DNT) Consistencies Administered: Consistencies Administered: Thin liquids, [address] thickened liquids, Honey thickened liquids, Purees, Solids [...] and required additional liquid swallow ??Puree ??Honey ??[address] ??Thin ??Solids Oral Management: slow and prolonged [...] skilled ST after evaluation on this date) HAT BRAIDER Frequency: Discharge from this Service Next Planned Visit: ??(n/a) Discharge Recommendations: Defer at this time Barriers to Discharge: defer to medical team Discharge Summary Statement If this is the last speech therapy visit, this serves as the discharge summary. Becky Gold M.S., [facility]-HAT BRAIDER Goals established: 04/22/24 HAT BRAIDER Care Plan Problems/Goals ?? None [employer] Utilized: NO This patient was identified by name and on this visit. HAT BRAIDER Start Time: 1145 HAT BRAIDER Stop Time: 1210 HAT BRAIDER Time Calculation (min): 25 min us Cheryl Sltaer MD HAT BRAIDER ORDERABLES Final Re sult * FL Modified [...] PM T: ??04/22/2024 12:36 PM Report ID: [id number] Reading Location: ??[id number] Procedure Note Jose Duvall DO - 04/22/2024 EXAM DESCRIPTION: FL MODIFIED [...] Jose Duvall D.O. AP: AP Report ID: [id number] Reading Location: [id number] Cheryl Slater MD IMG FLUOROSCOPY PROCEDUR ES Final Result * POCT glucose (04/22/2024 8:38 AM CDT) Glucose, POC 130 70 - 199 mg/dL Comment:Testing performed by : [facility], [address] [place] [address], [place]., [address] Glucose comment 1 Use This Result CERNER MH Comment:Testing performed by : [facility], [address] [place] [address]., [address] Glucose comment 2 RN/MD Notified NILSA RODRIGES Comment:Testing performed by : [facility], [address] [place] [address]., [address] Blood 04/22/2024 8:38 AM CDT 04/22/2024 8:38 AM CDT us Cheryl Slater MD LAB POCT ORDERABLES - DE VICE Final Result NILSA [address] [facility] Department [place] [address] * (ABNORMAL) eGFR (04/22/2024 8:34 AM CDT) [...] was last reviewed 2021. Testing performed by: [address] [address] Blood 04/22/2024 8:34 AM CDT 04/22/2024 9:26 AM CDT us Cheryl Slater MD LAB BLOOD ORDERABLES Fin al Result [facility] [address] [facility] Department [place] [address] * Differential, auto (04/22/2024 8:34 AM CDT) Neutrophil abs 5.8 1.5 - 6.5 K/cumm Comment:Testing performed by : [address] [address] Imm gran abs 0.0 0.0 - 0.1 K/cumm NILSA Comment:Testing performed by : [address] [address] Lymphocyte abs 2.3 0.8 - 3.3 K/cumm NILSA Comment:Testing performed by : [address] [address] Monocyte abs 0.6 0.2 - 0.8 K/cumm NILSA Comment:Testing performed by : [address] [address] Eosinophil abs 0.1 0.0 - 0.5 K/cumm NILSA Comment:Testing performed by : [address] [address] Basophil abs 0.0 0.0 - 0.1 K/cumm NILSA Comment:Testing performed by : [address] [address] Neutrophil pct 66.3 % NILSA Comment: Interpretive Data Percent cell count reference ranges are not reported, since discordance with absolute values may lead to misinterpretation of CBC data. Current Interpretive Data was last revised on 2017. Testing performed by: [address] [address] Imm gran pct 0.2 % [facility] Comment: Interpretive Data Percent cell count reference ranges are not reported, since discordance with absolute values may lead to misinterpretation of CBC data. Current Interpretive Data was last revised on 2017. Testing performed by: [address] [address] Lymphocyte pct 26.0 % [facility] Comment: Interpretive Data Percent cell count reference ranges are not reported, since discordance with absolute values may lead to misinterpretation of CBC data. Current Interpretive Data was last revised on 2017. Testing performed by: [address] [address] Monocyte pct 6.4 % [facility] Comment: Interpretive Data Percent cell count reference ranges are not reported, since discordance with absolute values may lead to misinterpretation of CBC data. Current Interpretive Data was last revised on 2017. Testing performed by: [address] [address] Eosinophil pct 0.9 % [facility] Comment: Interpretive Data Percent cell count reference ranges are not reported, since discordance with absolute values may lead to misinterpretation of CBC data. Current Interpretive Data was last revised on 2017. Testing performed by: [address] [address] Basophil pct 0.2 % [facility] Comment: Interpretive Data Percent cell count reference ranges are not reported, since discordance with absolute values may lead to misinterpretation of CBC data. Current Interpretive Data was last revised on 2017. Testing performed by: [address] [address] Blood 04/22/2024 8:34 AM CDT 04/22/2024 9:25 AM CDT us Cheryl Slater MD LAB BLOOD ORDERABLES Fin al Result NILSA RODRIGES [address] [facility] Department [place] [address] * (ABNORMAL) CBC with auto differential (04/22/2024 8:34 AM CDT) WBC 8.7 3.8 - 9.9 K/cumm Comment:Testing performed by : [address] [address] Hgb 10.0(L) 11.9 - 15.5 g/dL NILSA Comment:Testing performed by : [address] [address] Hct 31.0(L) 35.6 - 45.5 % NILSA Comment:Testing performed by : [address] [address] Plt 199 150 - 400 K/cumm NILSA Comment:Testing performed by : [address], [address] MPV 11.2 9.1 - 12.3 fL NILSA Comment:Testing performed by : [address], [address] RBC 3.31(L) 3.90 - 5.20 M/cumm NILSA Comment:Testing performed by : [address], [address] MCV 93.7 81.3 - 96.4 fL NILSA Comment:Testing performed by : [address], [address] MCH 30.2 27.1 - 33.3 pg NILSA Comment:Testing performed by : [address] [address] MCHC 32.3 32.3 - 35.7 g/dL NILSA Comment:Testing performed by : [address], [address] RDW CV 14.4 11.1 - 14.9 % NILSA Comment:Testing performed by : [address] [address] RDW SD 49.1(H) 35.7 - 48.1 fL NILSA Comment:Testing performed by : [address] [address] NRBC abs 0.00 0.00 - 0.01 K/cumm NILSA Comment:Testing performed by : [address] [place] [address] Blood 04/22/2024 8:34 AM CDT 04/22/2024 9:25 AM CDT Cheryl Slater MD LAB BLOOD ORDERABLES Fin al Result Performing Organization Address [facility] de Phone Number [address] [address] * Phosphorus (04/22/2024 8:34 AM CDT) Pathologist [facility] Phosphorus, pl 3.7 2.3 - 4.5 mg/dL Comment:Testing performed by : [address] [address] Blood 04/22/2024 8:34 AM CDT 04/22/2024 9:26 AM CDT Cheryl Slater MD LAB BLOOD ORDERABLES Fin al Result Performing Organization Address [facility] Co de Phone Number [address] [address] * (ABNORMAL) Comprehensive metabolic panel (04/22/2024 8:34 AM CDT) Pathologist [facility] Sodium 137 135 - 145 mmol/L Comment:Testing performed by : [address] [address] Potassium, pl 4.6 3.3 - 4.9 mmol/L NILSA Comment: Delta - Results Reviewed Testing performed by: [address] [address] Chloride 98 97 - 110 mmol/L NILSA Comment:Testing performed by : [address] [address] CO2 21(L) 22 - 32 mmol/L NILSA Comment:Testing performed by : [address] [address] Anion gap 18(H) 2 - 15 mmol/L NILSA Comment:Testing performed by : [address] [place] [address] BUN 53(H) 6 - 25 mg/dL NILSA Comment:Testing performed by : [address] [address] Creatinine 4.70(H) 0.60 - 1.10 mg/dL NILSA Comment:Testing performed by : [address] [address] Glucose 134 70 - 199 mg/dL NILSA [...] was last revised 2022. Testing performed by: [address] [address] Calcium 9.6 8.5 - 10.3 mg/dL NILSA Comment:Testing performed by : [address] [address] Bilirubin, total 0.2 0.1 - 1.2 mg/dL NILSA Comment:Testing performed by : [address] [address] Protein, pl 7.7 6.5 - 8.5 g/dL NILSA Comment:Testing performed by : [address] [address] Albumin 3.7 3.5 - 5.0 g/dL NILSA Comment:Testing performed by : [address] [address] Alk phos 102 40 - 130 Units/L NILSA Comment:Testing performed by : [address] [address] ALT 21 7 - 45 Units/L NILAS Comment:Testing performed by : [address] [address] AST 14 10 - 45 Units/L NILSA Comment:Testing performed by : [address] [address] Blood 04/22/2024 8:34 AM CDT 04/22/2024 9:26 AM CDT Cheryl Slater MD LAB BLOOD ORDERABLES Fin al Result Performing Organization Address [facility] Co de Phone Number [address] [address] * POCT glucose (04/21/2024 8:34 PM CDT) [facility] Glucose, POC 167 70 - 199 mg/dL Comment:Testing performed by : [address] [address] Glucose comment 1 Use This Result NILSA Comment:Testing performed by : [address] [address] Blood 04/21/2024 8:34 PM CDT 04/21/2024 8:34 PM CDT Cheryl Slater MD LAB POCT ORDERABLES - DE VICE Final Result Performing Organization Address [facility] de Phone Number [address] [address] * (ABNORMAL) Hemoglobin and hematocrit (04/21/2024 7:24 PM CDT) [facility] Hgb 10.1(L) 11.9 - 15.5 g/dL Comment:Testing performed by : [address] [address] Hct 30.6(L) 35.6 - 45.5 % NILSA Comment:Testing performed by : [address] [address] Blood 04/21/2024 7:24 PM CDT 04/21/2024 7:28 PM CDT Cheryl Slater MD LAB BLOOD ORDERABLES Fin al Result Performing Organization Address City/[facility]/ZIP Co de Phone Number NILSA [facility] [place] [employer] [place] [address] * POCT glucose (04/21/2024 5:55 PM CDT) [facility] Signature Glucose, POC 135 70 - 199 mg/dL Comment:Testing performed by : [facility], [address] [place] [address]., [address] Blood 04/21/2024 5:55 PM CDT 04/21/2024 5:55 PM CDT Cheryl Slater MD LAB POCT ORDERABLES - DE VICE Final Result Performing Organization Address [facility] Co ny Phone Number NILSA [address] [facility] [place] [employer] [place] [address] * CT Head WO Contrast (04/21/2024 11:32 [...] 04/21/2024 11:38 AM - Electronically signed by ??Robret Fay M.D. CH: KECIA D: ??04/21/2024 11:38 AM T: ??04/21/2024 11:38 AM Report ID: [id number] Reading Location: ??[id number] Procedure Note Robert Fay Jr., MD - [...] Robert Fay M.D. CH: KECIA Report ID: [id number] Reading Location: [id number] Shemar Feliz MD IM CT PROCEDURES Final Result * (ABNORMAL) POC Blood Gas and Chemistries, Arterial - (04/21/2024 10:46 AM CDT) [facility] pH, art POC 7.49(H) 7.35 - 7.45 Comment:Testing performed by : [address] [address] pCO2, art POC 38 35 - 45 mmHg NILSA RODRIGES Comment:Testing performed by : [address] [address] pO2, art POC 91 83 - 108 mmHg NILSA Comment:Testing performed by : [facility], [address] [place] [address]., [address] HCO3, art (Calc) POC 29 20 - 30 mmol/L NILSA RODRIGES Comment:Testing performed by : [address] [address] Base excess, art POC 5 mmol/L NILSA Comment: Interpretive Data No reference range established. Current interpretive data was last revised 2020. Testing performed by: [address] [address] Blood 04/21/2024 10:4 6 AM CDT 04/21/2024 10:46 AM CDT us Cheryl Slater MD LAB POCT ORDERABLES - DE VICE Final Result Performing Organization Address [facility] Co de Phone Number [address] [place] [place] [place] [address] * (ABNORMAL) Troponin T high-sensitivity (04/21/2024 10:43 AM CDT) Trop T hs 60(H) <=14 ng/L Comment: Interpretive Data For further hscTnT resources including the diagnostic algorithm and an aid in interpretation, copy and paste this link: https://nrl.testcatalog.org/show/hsTrop Current Interpretive Data last revised 2020. Testing performed by: [address] [address] Blood 04/21/2024 10:4 3 AM CDT 04/21/2024 10:47 AM CDT us Shemar Feliz MD LAB BLOOD ORDERABLES Fi nal Result Performing Organization Address City/[facility]/ZIP Co de Phone Number CARLOS ENRIQUE[address] [employer] [place] [employer] [place] [address] * Lactate (04/21/2024 10:43 AM CDT) Pathologist [facility] Lactate 1.8 0.7 - 2.0 mmol/L Comment:Testing performed by : [facility], [address] [place] [address]., [address] Blood 04/21/2024 10:4 3 AM CDT 04/21/2024 10:47 AM CDT Shemar Feliz MD LAB BLOOD ORDERABLES Fi nal Result NILSA [address] [facility] [place] [address] * (ABNORMAL) eGFR (04/21/2024 10:43 AM CDT) [facility] eGFR 21(L) >=60 mL/min/1. 73 m2 [...] was last reviewed 2021. Testing performed by: [facility], [address] [place] [address]., [address] Blood 04/21/2024 10:4 3 AM CDT 04/21/2024 10:47 AM CDT us Cheryl Slater MD LAB BLOOD ORDERABLES Fin al Result [facility] [address] [facility] [place] [address] * (ABNORMAL) Differential, auto (04/21/2024 10:43 AM CDT) Neutrophil abs 8.1(H) 1.5 - 6.5 K/cumm Comment:Testing performed by : [address] [address] Imm gran abs 0.1 0.0 - 0.1 K/cumm NILSA Comment:Testing performed by : [address] [address] Lymphocyte abs 3.2 0.8 - 3.3 K/cumm NILSA Comment:Testing performed by : [address] [address] Monocyte abs 0.7 0.2 - 0.8 K/cumm NILSA Comment:Testing performed by : [address] [address] Eosinophil abs 0.1 0.0 - 0.5 K/cumm NILSA Comment:Testing performed by : [address] [address] Basophil abs 0.0 0.0 - 0.1 K/cumm [facility] Comment:Testing performed by : [address] [address] Neutrophil pct 66.1 % NILSA Comment: Interpretive Data Percent cell count reference ranges are not reported, since discordance with absolute values may lead to misinterpretation of CBC data. Current Interpretive Data was last revised on 2017. Testing performed by: [address] [address] Imm gran pct 0.6 % NILSA Comment: Interpretive Data Percent cell count reference ranges are not reported, since discordance with absolute values may lead to misinterpretation of CBC data. Current Interpretive Data was last revised on 2017. Testing performed by: [address] [address] Lymphocyte pct 26.4 % [facility] Comment: Interpretive Data Percent cell count reference ranges are not reported, since discordance with absolute values may lead to misinterpretation of CBC data. Current Interpretive Data was last revised on 2017. Testing performed by: [address] [address] Monocyte pct 5.8 % [facility] Comment: Interpretive Data Percent cell count reference ranges are not reported, since discordance with absolute values may lead to misinterpretation of CBC data. Current Interpretive Data was last revised on 2017. Testing performed by: [address] [address] Eosinophil pct 0.9 % [facility] Comment: Interpretive Data Percent cell count reference ranges are not reported, since discordance with absolute values may lead to misinterpretation of CBC data. Current Interpretive Data was last revised on 2017. Testing performed by: [address] [address] Basophil pct 0.2 % [facility] Comment: Interpretive Data Percent cell count reference ranges are not reported, since discordance with absolute values may lead to misinterpretation of CBC data. Current Interpretive Data was last revised on 2017. Testing performed by: [address] [address] Blood 04/21/2024 10:4 3 AM CDT 04/21/2024 10:47 AM CDT us Shemar Feliz MD LAB BLOOD ORDERABLES Fi nal Result NILSA [address] [facility] [place] [address] * (ABNORMAL) Pro B-type natriuretic peptide (04/21/2024 [...] et.al. Eur Heart J. 2006:27:330-337. 2. Melisa BAILON, Audelia MTZ. J. AM Yonny Cardiol: Cardiovasc Imag. 2009;2: 216- 225. Interpretive Data Last Revised Date: 2018. Testing performed by: [facility], [address] [place] [address]., [address] Blood 04/21/2024 10:4 3 AM CDT 04/21/2024 10:47 AM CDT Shemar Feliz MD LAB BLOOD ORDERABLES Fi nal Result Performing Organization Address [facility] de Phone Number [address] [address] * Thyroid Function [place] (04/21/2024 10:43 AM CDT) [facility] TSH 2.25 0.30 - 4.20 mcIUnit/mL Comment:Testing performed by : [address] [address] Blood 04/21/2024 10:4 3 AM CDT 04/21/2024 10:47 AM CDT Shemar Feliz MD LAB BLOOD ORDERABLES Fi nal Result Performing Organization Address [facility] de Phone Number [address] [address] * (ABNORMAL) CBC with auto differential (04/21/2024 10:43 AM CDT) [facility] WBC 12.2(H) 3.8 - 9.9 K/cumm Comment:Testing performed by : [address] [address] Hgb 9.9(L) 11.9 - 15.5 g/dL NILSA Comment:Testing performed by : [address] [address] Hct 30.0(L) 35.6 - 45.5 % NILSA Comment:Testing performed by : [address] [address] Plt 204 150 - 400 K/cumm NILSA Comment:Testing performed by : [address] [address] MPV 10.7 9.1 - 12.3 fL NILSA RODRIGES Comment:Testing performed by : [address] [address] RBC 3.27(L) 3.90 - 5.20 M/cumm NILSA Comment:Testing performed by : [address], [address] MCV 91.7 81.3 - 96.4 fL NILSA Comment:Testing performed by : [address], [address] MCH 30.3 27.1 - 33.3 pg NILSA Comment:Testing performed by : [address], [address] MCHC 33.0 32.3 - 35.7 g/dL NILSA Comment:Testing performed by : [address], [address] RDW CV 14.4 11.1 - 14.9 % NILSA Comment:Testing performed by : [address], [address] RDW SD 48.4(H) 35.7 - 48.1 fL NILSA Comment:Testing performed by : [address], [address] NRBC abs 0.00 0.00 - 0.01 K/cumm NILSA Comment:Testing performed by : [address], [address] Blood 04/21/2024 10:4 3 AM CDT 04/21/2024 10:47 AM CDT Shemar Feliz MD LAB BLOOD ORDERABLES Fi nal Result [facility] [address] [facility] [place] [address] * Hepatitis B Surface Antigen Blood (04/21/2024 10:43 AM CDT) HepBsAg Nonreactive Nonreactive Blood 04/21/2024 10:4 3 AM CDT 04/21/2024 12:45 PM CDT us Markie Ryan MD LAB MICROBIOLOGY - GENERAL OR DERABLES Final Result Performing Organization Address City/[facility]/ZIP Co de Phone Number [address] [address] * Magnesium (04/21/2024 10:43 AM CDT) Pathologist [facility] Magnesium 1.8 1.4 - 2.5 mg/dL Comment:Testing performed by : [address] [address] Blood 04/21/2024 10:4 3 AM CDT 04/21/2024 10:47 AM CDT Cheryl Slater MD LAB BLOOD ORDERABLES Fin al Result Performing Organization Address [facility] Co de Phone Number [address] [address] * (ABNORMAL) Hepatic function panel (04/21/2024 10:43 AM CDT) Bilirubin, total 0.2 0.1 - 1.2 mg/dL Comment:Testing performed by : [address] [address] Bilirubin, direct <0.2 0.1 - 0.3 mg/dL NILSA Comment:Testing performed by : [address] [address] Protein, pl 7.6 6.5 - 8.5 g/dL NILSA Comment:Testing performed by : [address] [address] Albumin 3.9 3.5 - 5.0 g/dL NILSA Comment:Testing performed by : [address] [address] Alk phos 152(H) 40 - 130 Units/L NILSA Comment:Testing performed by : [address] [address] ALT 36 7 - 45 Units/L NILSA Comment:Testing performed by : [address] [address] AST 24 10 - 45 Units/L NILSA Comment:Testing performed by : [address] [address] Blood 04/21/2024 10:4 3 AM CDT 04/21/2024 10:47 AM CDT Cheryl Slater MD LAB BLOOD ORDERABLES Fin al Result NILSA [address] [facility] [place] [address] * (ABNORMAL) Basic metabolic panel (04/21/2024 10:43 AM CDT) Sodium 138 135 - 145 mmol/L Comment:Testing performed by : [address] [address] Potassium, pl 3.5 3.3 - 4.9 mmol/L NILSA Comment:Testing performed by : [address] [address] Chloride 98 97 - 110 mmol/L NILSA Comment:Testing performed by : [address] [address] CO2 28 22 - 32 mmol/L NILSA Comment:Testing performed by : [address] [address] Anion gap 12 2 - 15 mmol/L NILSA Comment:Testing performed by : [address] [address] BUN 30(H) 6 - 25 mg/dL NILSA Comment:Testing performed by : [address] [address] Creatinine 2.40(H) 0.60 - 1.10 mg/dL NILSA Comment:Testing performed by : [address] [address] Glucose 181 70 - 199 mg/dL NILSA [...] was last revised 2022. Testing performed by: [facility], [address] [place] [address]., [address] Calcium 9.2 8.5 - 10.3 mg/dL NILSA Comment:Testing performed by : [facility], [address] [place] [address]., [address] Blood 04/21/2024 10:4 3 AM CDT 04/21/2024 10:47 AM CDT Cheryl Slater MD LAB BLOOD ORDERABLES Fin al Result Performing Organization Address [facility] Co de Phone Number [facility] [address] [facility] [place] [address] * ECG 12 lead (04/21/2024 10:35 AM CDT) Pathologist [facility] Ventricular Rate EKG/Min 84 BPM [facility] Atrial Rate 84 BPM [facility] OR-Interval (MSEC) 154 ms [facility] QRS-Interval (MSEC) 68 ms [facility] QT-Interval (MSEC) 410 ms [facility] QTc 484 ms [facility] P [place] 72 degrees [facility] R [place] 0 degrees [facility] T [place] 58 degrees [facility] Diagnosis Normal sinus rhythm Normal ECG When compared with ECG of 19-APR-2024 17:03, No significant change was found Confirmed by DIAMOND DUVALL M.D. ([id number]) on 04/21/2024 11:31:25 PM [facility] 04/21/2024 10:3 5 AM CDT 04/21/2024 11:31 PM CDT Cheryl Slater MD ECG ORDERABLES Final Re sult Performing Organization Address [facility] Co de Phone Number [facility] * POCT glucose (04/21/2024 10:32 AM CDT) Glucose, POC 168 70 - 199 mg/dL Comment:Testing performed by : [facility], [address] [place] [address]., [address] Blood 04/21/2024 10:3 2 AM CDT 04/21/2024 10:32 AM CDT us Cheryl Slater MD LAB POCT ORDERABLES - DE VICE Final Result NILSA [address] [facility] [place] [address] * (ABNORMAL) eGFR (04/21/2024 8:56 [...] was last reviewed 2021. Testing performed by: [address] [address] Blood 04/21/2024 8:56 AM CDT 04/21/2024 9:36 AM CDT Cheryl Slater MD LAB BLOOD ORDERABLES Fin al Result [facility] [address] [facility] [place] [address] * Differential, auto (04/21/2024 8:56 AM CDT) Neutrophil abs 6.2 1.5 - 6.5 K/cumm Comment:Testing performed by : [address] [address] Imm gran abs 0.0 0.0 - 0.1 K/cumm NILSA Comment:Testing performed by : [address] [address] Lymphocyte abs 2.2 0.8 - 3.3 K/cumm NILSA Comment:Testing performed by : [address] [address] Monocyte abs 0.6 0.2 - 0.8 K/cumm NILSA Comment:Testing performed by : [address] [address] Eosinophil abs 0.1 0.0 - 0.5 K/cumm NILSA Comment:Testing performed by : [address] [address] Basophil abs 0.0 0.0 - 0.1 K/cumm NILSA Comment:Testing performed by : [address] [address] Neutrophil pct 67.9 % NILSA Comment: Interpretive Data Percent cell count reference ranges are not reported, since discordance with absolute values may lead to misinterpretation of CBC data. Current Interpretive Data was last revised on 2017. Testing performed by: [address] [address] Imm gran pct 0.4 % [facility] Comment: Interpretive Data Percent cell count reference ranges are not reported, since discordance with absolute values may lead to misinterpretation of CBC data. Current Interpretive Data was last revised on 2017. Testing performed by: [address] [address] Lymphocyte pct 24.5 % [facility] Comment: Interpretive Data Percent cell count reference ranges are not reported, since discordance with absolute values may lead to misinterpretation of CBC data. Current Interpretive Data was last revised on 2017. Testing performed by: [address] [address] Monocyte pct 6.0 % [facility] Comment: Interpretive Data Percent cell count reference ranges are not reported, since discordance with absolute values may lead to misinterpretation of CBC data. Current Interpretive Data was last revised on 2017. Testing performed by: [address] [address] Eosinophil pct 1.0 % [facility] Comment: Interpretive Data Percent cell count reference ranges are not reported, since discordance with absolute values may lead to misinterpretation of CBC data. Current Interpretive Data was last revised on 2017. Testing performed by: [address] [address] Basophil pct 0.2 % [facility] Comment: Interpretive Data Percent cell count reference ranges are not reported, since discordance with absolute values may lead to misinterpretation of CBC data. Current Interpretive Data was last revised on 2017. Testing performed by: [address] [address] Blood 04/21/2024 8:56 AM CDT 04/21/2024 9:36 AM CDT us Cheryl Slater MD LAB BLOOD ORDERABLES Fin al Result NILSA RODRIGES [address] [facility] Department [place] [address] * (ABNORMAL) CBC with auto differential (04/21/2024 8:56 AM CDT) [facility] WBC 9.1 3.8 - 9.9 K/cumm Comment:Testing performed by : [address] [address] Hgb 9.3(L) 11.9 - 15.5 g/dL NILSA Comment:Testing performed by : [address], [address] Hct 27.8(L) 35.6 - 45.5 % NILSA Comment:Testing performed by : [address], [address] Plt 199 150 - 400 K/cumm NILSA Comment:Testing performed by : [address], [address] MPV 10.7 9.1 - 12.3 fL NILSA Comment:Testing performed by : [address], [address] RBC 2.98(L) 3.90 - 5.20 M/cumm NILSA Comment:Testing performed by : [address], [address] MCV 93.3 81.3 - 96.4 fL NILSA Comment:Testing performed by : [address], [address] MCH 31.2 27.1 - 33.3 pg NILSA Comment:Testing performed by : [address], [address] MCHC 33.5 32.3 - 35.7 g/dL NILSA Comment:Testing performed by : [address], [address] RDW CV 14.4 11.1 - 14.9 % NILSA Comment:Testing performed by : [address], [address] RDW SD 49.0(H) 35.7 - 48.1 fL NILSA Comment:Testing performed by : [address], [address] NRBC abs 0.00 0.00 - 0.01 K/cumm NILSA Comment:Testing performed by : [address] [address] Blood 04/21/2024 8:56 AM CDT 04/21/2024 9:36 AM CDT Cheryl Slater MD LAB BLOOD ORDERABLES Fin al Result [facility] [address] [facility] [place] [address] * (ABNORMAL) Comprehensive metabolic panel (04/21/2024 8:56 AM CDT) Sodium 139 135 - 145 mmol/L Comment:Testing performed by : [address] [address] Potassium, pl 5.0(H) 3.3 - 4.9 mmol/L NILSA Comment:Testing performed by : [address] [address] Chloride 101 97 - 110 mmol/L NILSA Comment:Testing performed by : [address] [address] CO2 25 22 - 32 mmol/L NILSA Comment:Testing performed by : [address] [address] Anion gap 13 2 - 15 mmol/L NILSA Comment:Testing performed by : [address] [address] BUN 65(H) 6 - 25 mg/dL NILSA Comment:Testing performed by : [address] [address] Creatinine 4.60(H) 0.60 - 1.10 mg/dL NILSA Comment:Testing performed by : [address] [address] Glucose 163 70 - 199 mg/dL NILSA [...] was last revised 2022. Testing performed by: [address] [address] Calcium 9.3 8.5 - 10.3 mg/dL NILSA Comment:Testing performed by : [address] [address] Bilirubin, total <0.2 0.1 - 1.2 mg/dL NILSA Comment:Testing performed by : [address] [address] Protein, pl 6.7 6.5 - 8.5 g/dL NILSA Comment:Testing performed by : [address] [address] Albumin 3.6 3.5 - 5.0 g/dL NILSA Comment:Testing performed by : [address] [address] Alk phos 137(H) 40 - 130 Units/L NILSA Comment:Testing performed by : [address] [address] ALT 32 7 - 45 Units/L NILSA Comment:Testing performed by : [address] [address] AST 19 10 - 45 Units/L NILSA Comment:Testing performed by : [address] [address] Blood 04/21/2024 8:56 AM CDT 04/21/2024 9:36 AM CDT us Cheryl Slater MD LAB BLOOD ORDERABLES Fin al Result NILSA [address] [facility] [place] [address] * POCT glucose (04/21/2024 7:51 AM CDT) Glucose, POC 193 70 - 199 mg/dL Comment:Testing performed by : [facility], [address] [place] [address]., [address] Glucose comment 1 Use This Result NILSA RODRIGES Comment:Testing performed by : [facility], [address] [place] [address]., [address] Glucose comment 2 RN/MD Notified NILSA RODRIGES Comment:Testing performed by : [address] [address] Blood 04/21/2024 7:51 AM CDT 04/21/2024 7:51 AM CDT Cheryl Slater MD LAB POCT ORDERABLES - DE VICE Final Result Performing Organization Address City/[facility]/ZIP Co de Phone Number NILSA [address] [place] [employer] [place] [address] * (ABNORMAL) POCT glucose (04/20/2024 8:18 PM CDT) Glucose, POC 209(H) 70 - 199 mg/dL Comment:Testing performed by : [address] [address] Glucose comment 1 Use This Result NILSA RODRIGES Comment:Testing performed by : [address] [address] Blood 04/20/2024 8:18 PM CDT 04/20/2024 8:18 PM CDT us Cheryl Slater MD LAB POCT ORDERABLES - DE VICE Final Result Performing Organization Address City/[facility]/ZIP Co de Phone Number [address] [place] [place] [address] * (ABNORMAL) POCT glucose (04/20/2024 4:47 PM CDT) Glucose, POC 204(H) 70 - 199 mg/dL Comment:Testing performed by : [address] [address] Blood 04/20/2024 4:47 PM CDT 04/20/2024 4:47 PM CDT Cheryl Slater MD LAB POCT ORDERABLES - DE VICE Final Result NILSA [address] [facility] [place] [address] * MRI Brain WO Contrast (04/20/2024 2:47 [...] PM T: ??04/20/2024 3:26 PM Report ID: [id number] Reading Location: ??[id number] Procedure Note Jose Duvall, DO - 04/20/2024 [...] with ADC map sequences. Additional sequence(s) sensitive tobIntegral Wave Technologiesod products. Images stored on PACS. COMPARISON: Multiple previous [...] Jose Duvall D.O. AP: CLEMENTE Report ID: [id number] Reading Location: [place] [address] us Cheryl Slater MD IMG MRI PROCEDURES Final Result * POCT glucose (04/20/2024 12:17 PM CDT) Glucose, POC 196 70 - 199 mg/dL Comment:Testing performed by : [address] [address] Blood 04/20/2024 12:1 7 PM CDT 04/20/2024 12:17 PM CDT us Cheryl Slater MD LAB POCT ORDERABLES - DE VICE Final Result [facility] [address] [facility] Department of Laboratories [place], [place] [id number] * Ammonia (04/20/2024 8:53 AM CDT) Ammonia 26 <=50 mcmol/L Comment: Please note on 2023 the unit of measure changed from mcg/dL to mcmol/L. Current Interpretive Data was last revised on 2023. Testing performed by: [address] [address] Blood 04/20/2024 8:53 AM CDT 04/20/2024 9:00 AM CDT us Cheryl Slater MD LAB BLOOD ORDERABLES Fin al Result Performing Organization Address [facility] Co de Phone Number [facility] [place] [address] * POCT glucose (04/20/2024 8:30 AM CDT) Pathologist [facility] Glucose, POC 119 70 - 199 mg/dL Comment:Testing performed by : [facility], [address] [place] [address]., [address] Blood 04/20/2024 8:30 AM CDT 04/20/2024 8:30 AM CDT us Cheryl Slater MD LAB POCT ORDERABLES - DE VICE Final Result Performing Organization Address [facility] Phone Number [facility] [place] [address] * (ABNORMAL) eGFR (04/20/2024 7:55 AM CDT) [facility] eGFR 15(L) >=60 mL/min/1. 73 m2 Comment: [...] of Race in Diagnosing Kidney Disease, JASN 202). The CKD-EPI equation should not be used for patients with unstable renal function and has not been validated in children and those over 70. Current interpretive data was last reviewed 2021. Testing performed by: [address] [address] Blood 04/20/2024 7:55 AM CDT 04/20/2024 8:17 AM CDT Mir Dial DO LAB BLOOD OR DERABLES Final Result [facility] Department [place] [address] * (ABNORMAL) Differential, auto (04/20/2024 7:55 AM CDT) Neutrophil abs 7.5(H) 1.5 - 6.5 K/cumm Comment:Testing performed by : [address] [address] Imm gran abs 0.0 0.0 - 0.1 K/cumm NILSA Comment:Testing performed by : [address] [address] Lymphocyte abs 2.2 0.8 - 3.3 K/cumm NILSA Comment:Testing performed by : [address] [address] Monocyte abs 0.6 0.2 - 0.8 K/cumm NILSA Comment:Testing performed by : [address] [address] Eosinophil abs 0.1 0.0 - 0.5 K/cumm NILSA Comment:Testing performed by : [address] [address] Basophil abs 0.0 0.0 - 0.1 K/cumm NILSA Comment:Testing performed by : [address] [address] Neutrophil pct 72.3 % [facility] Comment: Interpretive Data Percent cell count reference ranges are not reported, since discordance with absolute values may lead to misinterpretation of CBC data. Current Interpretive Data was last revised on 2017. Testing performed by: [address] [address] Imm gran pct 0.3 % [facility] Comment: Interpretive Data Percent cell count reference ranges are not reported, since discordance with absolute values may lead to misinterpretation of CBC data. Current Interpretive Data was last revised on 2017. Testing performed by: [address] [address] Lymphocyte pct 21.0 % [facility] Comment: Interpretive Data Percent cell count reference ranges are not reported, since discordance with absolute values may lead to misinterpretation of CBC data. Current Interpretive Data was last revised on 2017. Testing performed by: [address] [address] Monocyte pct 5.6 % [facility] Comment: Interpretive Data Percent cell count reference ranges are not reported, since discordance with absolute values may lead to misinterpretation of CBC data. Current Interpretive Data was last revised on 2017. Testing performed by: [address] [address] Eosinophil pct 0.6 % [facility] Comment: Interpretive Data Percent cell count reference ranges are not reported, since discordance with absolute values may lead to misinterpretation of CBC data. Current Interpretive Data was last revised on 2017. Testing performed by: [address] [address] Basophil pct 0.2 % [facility] Comment: Interpretive Data Percent cell count reference ranges are not reported, since discordance with absolute values may lead to misinterpretation of CBC data. Current Interpretive Data was last revised on 2017. Testing performed by: [address] [address] Blood 04/20/2024 7:55 AM CDT 04/20/2024 8:17 AM CDT Mir Dial DO LAB BLOOD OR DERABLES Final Result [facility] [address] [facility] [place] [address] * (ABNORMAL) CBC with auto differential (04/20/2024 7:55 AM CDT) [facility] WBC 10.3(H) 3.8 - 9.9 K/cumm Comment:Testing performed by : [address] [address] Hgb 9.7(L) 11.9 - 15.5 g/dL NILSA Comment:Testing performed by : [address] [address] Hct 29.9(L) 35.6 - 45.5 % NILSA Comment:Testing performed by : [address] [address] Plt 207 150 - 400 K/cumm NILSA Comment:Testing performed by : [address] [address] MPV 10.7 9.1 - 12.3 fL NILSA Comment:Testing performed by : [address] [address] RBC 3.20(L) 3.90 - 5.20 M/cumm NILSA Comment:Testing performed by : [address] [address] MCV 93.4 81.3 - 96.4 fL NILSA Comment:Testing performed by : [address] [address] MCH 30.3 27.1 - 33.3 pg NILSA Comment:Testing performed by : [address] [address] MCHC 32.4 32.3 - 35.7 g/dL NILSA Comment:Testing performed by : [address] [address] RDW CV 14.5 11.1 - 14.9 % NILSA Comment:Testing performed by : [address], [address] RDW SD 49.1(H) 35.7 - 48.1 fL NILSA RODRIGES Comment:Testing performed by : [address] [address] NRBC abs 0.00 0.00 - 0.01 K/cumm NILSA RODRIGES Comment:Testing performed by : [address] [address] Blood 04/20/2024 7:55 AM CDT 04/20/2024 8:17 AM CDT Mir Dial DO LAB BLOOD OR DERABLES Final Result NILSA RODRIGES [facility] Department [place] [address] * (ABNORMAL) Comprehensive metabolic panel (04/20/2024 7:55 AM CDT) Sodium 140 135 - 145 mmol/L Comment:Testing performed by : [address] [address] Potassium, pl 4.6 3.3 - 4.9 mmol/L NILSA RODRIGES Comment:Testing performed by : [address] [address] Chloride 103 97 - 110 mmol/L NILSA Comment:Testing performed by : [address] [address] CO2 25 22 - 32 mmol/L NILSA Comment:Testing performed by : [address] [address] Anion gap 12 2 - 15 mmol/L NILSA Comment:Testing performed by : [address] [address] BUN 34(H) 6 - 25 mg/dL NILSA Comment:Testing performed by : [address] [address] Creatinine 3.20(H) 0.60 - 1.10 mg/dL NILSA Comment:Testing performed by : [address] [address] Glucose 115 70 - 199 mg/dL NILSA [...] was last revised 2022. Testing performed by: [address] [address] Calcium 9.4 8.5 - 10.3 mg/dL NILSA Comment:Testing performed by : [address] [address] Bilirubin, total 0.2 0.1 - 1.2 mg/dL NILSA Comment:Testing performed by : [address] [address] Protein, pl 7.0 6.5 - 8.5 g/dL NILSA Comment:Testing performed by : [address] [address] Albumin 3.6 3.5 - 5.0 g/dL NILSA Comment:Testing performed by : [address] [address] Alk phos 106 40 - 130 Units/L NILSA Comment:Testing performed by : [address] [address] ALT 35 7 - 45 Units/L NILSA Comment:Testing performed by : [address] [address] AST 18 10 - 45 Units/L NILSA Comment:Testing performed by : [address] [address] Blood 04/20/2024 7:55 AM CDT 04/20/2024 8:17 AM CDT Mir Dial DO LAB BLOOD OR DERABLES Final Result Performing Organization Address City/[facility]/ZIP Co de Phone Number NILSA [address] [facility] Department [place] [address] * Influenza A/B, RSV, and COVID-19 PCR Nasopharyngeal (04/19/2024 10:53 PM CDT) COVID-19 RNA Negative Negative Comment:Testing performed by : [address] [address] Influenza A RNA Negative Negative [facility] Comment:Testing performed by : [address] [address] Influenza B RNA Negative Negative [facility] Comment:Testing performed by : [address] [address] RSV RNA Negative Negative [facility] Comment: Interpretive data: Testing performed by [facility]. This test is performed using the [employer] Xpert Xpress CoV-2/Flu/RSV plus assay. This is a multiplex, real-time reverse transcriptase PCR assay intended for the qualitative detection of nucleic acid from SARS-CoV-2, influenza A, influenza B, and respiratory syncytial virus. This assay has been cleared by the [place] Food and Drug administration. The performance characteristics have been verified by the [facility]. ??Results must be considered in the clinical context, and a negative result does not rule out infection. Interpretive Data last revised 2023 Testing performed by: [address] [address] Nasopharyngeal 04/19/2024 10 :53 PM CDT 04/19/2024 10:59 PM CDT Narrative [facility] - 04/20/2024 12:43 AM CDT Is the Patient experiencing symptoms consistent with COVID?->Unknown Mir Dial DO LAB MICROBIOLOGY - GENERAL ORDERABLES Final Result NILSA [address] [facility] Department [place] [address] * Blood culture Blood (04/19/2024 10:53 PM CDT) Report Final Report: No growth Comment:Testing performed by : [facility], [address], [place]., [address] Blood 04/19/2024 10:5 3 PM CDT 04/20/2024 3:27 AM CDT Narrative NILSA - 04/24/2024 7:01 AM [employer] Collection->Peripheral 1. ?Blood cultures are incubated for [...] organism identification may be performed using the [employer] Gram-Positive Blood Culture Assay. This assay detects microbial DNA in positive blood culture broth via hybridization of target DNA to capture oligonucleotides on a microarray. This assay has been cleared by the [place] Food and Drug Administration and its performance characteristics have been verified by the [facility]. 5. ?For questions about this culture, contact the Microbiology Laboratory at [phone]. Interpretive data was last revised on 2019. us Mir Dial DO LAB MICROBIOLOGY - GENERAL ORDERABLES Final Result NILSA RODRIGES [address] [facility] Department [place] [address] * Blood culture Blood (04/19/2024 10:53 PM CDT) Report Final Report: No growth Comment:Testing performed by : [facility], [address], [place]., [address] Blood 04/19/2024 10:5 3 PM CDT 04/20/2024 3:27 AM CDT Narrative NILSA RODRIGES - 04/24/2024 7:01 AM [employer] Collection->Peripheral 1. ?Blood cultures are incubated for [...] organism identification may be performed using the [employer] Gram-Positive Blood Culture Assay. This assay detects microbial DNA in positive blood culture broth via hybridization of target DNA to capture oligonucleotides on a microarray. This assay has been cleared by the [place] Food and Drug Administration and its performance characteristics have been verified by the [facility]. 5. ?For questions about this culture, contact the Microbiology Laboratory at [phone]. Interpretive data was last revised on 2019. us Mir Dial DO LAB MICROBIOLOGY - GENERAL ORDERABLES Final Result NILSA RODRIGES [address] [facility] Department [place] [address] * POCT glucose (04/19/2024 7:16 PM CDT) [facility] Glucose, POC 99 70 - 199 mg/dL Comment:Testing performed by : [facility], [address] [place] [address]., [address] Glucose comment 1 Use This Result NILSA RODRIGES Comment:Testing performed by : [facility], [address] [place] [address], [place]., [address] Blood 04/19/2024 7:16 PM CDT 04/19/2024 7:16 PM CDT us Wally Linn Jr., MD LAB POCT ORDERABLES - D EVICE Final Result NILSA RODRIGES [address] [facility] Department [place] [address] * XR Chest 1 Vw Portable (04/19/2024 [...] PM T: ??04/19/2024 7:40 PM Report ID: [id number] Reading Location: ??[id number] Procedure Note Mir Brooke MD - 04/19/2024 [...] Mir Brooke M.D. AR: KATHARINE Report ID: [id number] Reading Location: [id number] us Rehab Kyle YOUNG IMG XR PROCEDURES Final Result * (ABNORMAL) Troponin T high-sensitivity 2-hour (04/19/2024 6:27 PM CDT) Trop T hs 63(H) <=14 ng/L Comment: Ref Range High Interpretive Data For further hscTnT resources including the diagnostic algorithm and an aid in interpretation, copy and paste this link: https://nrl.testcatalog.org/show/hsTrop Current Interpretive Data last revised 2020. Testing performed by: [facility], [address] [place] [address], [place]., [address] Trop T hs delta See Comment ng/L NILSA RODRIGES Comment: Inappropriate collection time to report a delta. Testing performed by: [address] [address] Trop T hs pct delta See Comment % NILSA RODRIGES Comment: Inappropriate collection time to report a delta. Testing performed by: [address] [address] Trop T hs interp See Comment NILSA RODRIGES Comment: Inappropriate collection time to report a delta. Testing performed by: [address] [address] Blood 04/19/2024 6:27 PM CDT 04/19/2024 6:32 PM CDT Rehab Kyle YOUNG LAB BLOOD ORDERABLES Final Resu lt Performing Organization Address [facility] Co de Phone Number NILSA [address] [facility] [employer] [place] [employer] [place] [address] * Ammonia (04/19/2024 6:27 PM CDT) Ammonia 19 <=50 mcmol/L Comment: Please note on 2023 the unit of measure changed from mcg/dL to mcmol/L. Current Interpretive Data was last revised on 2023. Testing performed by: [address] [address] Blood 04/19/2024 6:27 PM CDT 04/19/2024 6:32 PM CDT [facility] Kyle YOUNG LAB BLOOD ORDERABLES Final Resu lt Performing Organization Address [facility] Co de Phone Number [facility] [address] [facility] [place] [place] [address] * (ABNORMAL) Urinalysis reflex to microscopic and culture Urine (04/19/2024 5:20 PM CDT) Color, ur Yellow Yellow Comment:Testing performed by : [address] [address] Clarity, ur Clear Clear NILSA RODRIGES Comment:Testing performed by : [address] [address] Specific gravity, ur 1.011 1.003 - 1.030 NILSA Comment:Testing performed by : [address] [address] pH, urine 7.0 NILSA Comment: Interpretive Data ? Urine pH is affected by diet, medications, systemic acid-base disturbances, and renal tubular function. ??pH may affect urinary stone formation. ??For example, urine pH below 6.0 may help reduce the tendency for calcium phosphate stones and pH greater than 6.0 may reduce the tendency for uric acid stone formation. Source: [facility] [employer] Current Interpretive Data was last revised on 2017 Testing performed by: [address] [address] Protein, ur ql 2+(A) Negative NILSA Comment:Testing performed by : [address] [address] Glucose, ur ql Trace(A) Negative NILSA Comment:Testing performed by : [address] [address] Ketones, ur Negative Negative NILSA Comment:Testing performed by : [address] [address] Bilirubin, ur Negative Negative NILSA Comment:Testing performed by : [address] [address] Blood, ur Negative Negative NILSA Comment:Testing performed by : [address] [address] Urobilinogen, ur <2.0 <2.0 mg/dL NILSA Comment:Testing performed by : [address] [address] Nitrite, ur Negative Negative NILSA Comment:Testing performed by : [address] [address] Leukocyte esterase, ur Negative Negative NILSA Comment:Testing performed by : [address] [address] UA reflex comment Reflex to microscopic UA will be performed. INLSA Comment:Testing performed by : [address] [address] Urine 04/19/2024 5:20 PM CDT 04/19/2024 5:22 PM CDT Rehab Kyle YOUNG LAB MICROBIOLOGY - GENERAL ORDE RABLES Final Result Performing Organization Address [facility] de Phone Number NILSA [address] [facility] [place] [place] [address] * (ABNORMAL) Urinalysis, microscopic only (04/19/2024 5:20 PM CDT) WBC, ur 0-5 0 - 5 /HPF Comment:Testing performed by : [address] [address] RBC, ur 3-5(A) 0 - 2 /HPF NILSA Comment:Testing performed by : [address] [address] Mucous, ur Present(A) NILSA Comment:Testing performed by : [address] [address] Culture Reflex Comment Reflex conditions for urine culture (WBC >10) not met. NILSA Comment:Testing performed by : [address] [address] Urine 04/19/2024 5:20 PM CDT 04/19/2024 5:22 PM CDT Rehab Kyle YOUNG LAB URINE ORDERABLES Final Resu lt Performing Organization Address [facility] de Phone Number [facility] [address] [facility] [place] [address] * ECG 12 lead (04/19/2024 5:03 PM CDT) Ventricular Rate EKG/Min 77 BPM [facility] Atrial Rate 77 BPM [facility] OR-Interval (MSEC) 150 ms [facility] QRS-Interval (MSEC) 74 ms [facility] QT-Interval (MSEC) 402 ms [facility] QTc 454 ms [facility] P [place] 72 degrees [facility] R [place] 11 degrees [facility] T [place] 43 degrees [facility] Diagnosis Normal sinus rhythm Normal ECG When compared with ECG of 31-JAN-2024 11:06, No significant change was found Confirmed by SENG WOODS M.D. ([id number]) on 04/21/2024 9:54:07 AM [facility] 04/19/2024 5:03 PM CDT 04/21/2024 9:54 AM CDT Chris Wright MD ECG ORDERABLES Final Result Performing Organization Address [facility] Co de Phone Number [facility] * (ABNORMAL) Troponin T high-sensitivity series (baseline, 2hr, 4hr, 6hr) (04/19/2024 4:57 PM CDT) Trop T hs 65(H) <=14 ng/L Comment: Ref Range High Interpretive Data For further hscTnT resources including the diagnostic algorithm and an aid in interpretation, copy and paste this link: https://nrl.testcatalog.org/show/hsTrop Current Interpretive Data last revised 2020. Testing performed by: [facility], [address] [place] [address]., [address] Blood 04/19/2024 4:57 PM CDT 04/19/2024 5:02 PM CDT Chris Wright MD LAB BLOOD ORDERABLES Edited Res ult - Final Performing Organization Address City/[facility]/ZIP Co de Phone Number NILSA [address] [facility] [place] [address] * (ABNORMAL) eGFR (04/19/2024 4:57 [...] was last reviewed 2021. Testing performed by: [address] [address] Blood 04/19/2024 4:57 PM CDT 04/19/2024 5:02 PM CDT us Rehab Kyle YOUNG LAB BLOOD ORDERABLES Final Resu lt NILSA [address] [facility] Department [place] [address] * (ABNORMAL) Differential, auto (04/19/2024 4:57 PM CDT) Neutrophil abs 8.3(H) 1.5 - 6.5 K/cumm Comment:Testing performed by : [address] [address] Imm gran abs 0.1 0.0 - 0.1 K/cumm NILSA RODRIGES Comment:Testing performed by : [address] [address] Lymphocyte abs 2.1 0.8 - 3.3 K/cumm NILSA RODRIGES Comment:Testing performed by : [address] [address] Monocyte abs 0.6 0.2 - 0.8 K/cumm [facility] Comment:Testing performed by : [address] [address] Eosinophil abs 0.1 0.0 - 0.5 K/cumm [facility] Comment:Testing performed by : [address] [address] Basophil abs 0.0 0.0 - 0.1 K/cumm [facility] Comment:Testing performed by : [address] [address] Neutrophil pct 74.2 % [facility] Comment: Interpretive Data Percent cell count reference ranges are not reported, since discordance with absolute values may lead to misinterpretation of CBC data. Current Interpretive Data was last revised on 2017. Testing performed by: [address] [address] Imm gran pct 0.4 % [facility] Comment: Interpretive Data Percent cell count reference ranges are not reported, since discordance with absolute values may lead to misinterpretation of CBC data. Current Interpretive Data was last revised on 2017. Testing performed by: [address] [address] Lymphocyte pct 19.2 % [facility] Comment: Interpretive Data Percent cell count reference ranges are not reported, since discordance with absolute values may lead to misinterpretation of CBC data. Current Interpretive Data was last revised on 2017. Testing performed by: [address] [address] Monocyte pct 5.2 % [facility] Comment: Interpretive Data Percent cell count reference ranges are not reported, since discordance with absolute values may lead to misinterpretation of CBC data. Current Interpretive Data was last revised on 2017. Testing performed by: [address] [address] Eosinophil pct 0.7 % [facility] Comment: Interpretive Data Percent cell count reference ranges are not reported, since discordance with absolute values may lead to misinterpretation of CBC data. Current Interpretive Data was last revised on 2017. Testing performed by: [address] [address] Basophil pct 0.3 % NILSA RODRIGES Comment: Interpretive Data Percent cell count reference ranges are not reported, since discordance with absolute values may lead to misinterpretation of CBC data. Current Interpretive Data was last revised on 2017. Testing performed by: [address] [address] Blood 04/19/2024 4:57 PM CDT 04/19/2024 5:02 PM CDT us Rehab Kyle YOUNG LAB BLOOD ORDERABLES Final Resu lt NILSA RODRIGES [address] [facility] [place] [address] * (ABNORMAL) CBC with auto differential (04/19/2024 4:57 PM CDT) WBC 11.2(H) 3.8 - 9.9 K/cumm Comment:Testing performed by : [address] [address] Hgb 9.9(L) 11.9 - 15.5 g/dL NILSA RODRIGES Comment:Testing performed by : [address] [address] Hct 30.0(L) 35.6 - 45.5 % NILSA RODRIGES Comment:Testing performed by : [address] [address] Plt 208 150 - 400 K/cumm NILSA RODRIGES Comment:Testing performed by : [address] [address] MPV 10.9 9.1 - 12.3 fL NILSA RODRIGES Comment:Testing performed by : [address] [address] RBC 3.28(L) 3.90 - 5.20 M/cumm NILSA RODRIGES Comment:Testing performed by : [address] [address] MCV 91.5 81.3 - 96.4 fL NILSA RODRIGES Comment:Testing performed by : [address] [address] MCH 30.2 27.1 - 33.3 pg NILSA RODRIGES Comment:Testing performed by : [address] [address] MCHC 33.0 32.3 - 35.7 g/dL NILSA RODRIGES Comment:Testing performed by : [address] [address] RDW CV 14.6 11.1 - 14.9 % NILSA RODRIGES Comment:Testing performed by : [address] [address] RDW SD 49.1(H) 35.7 - 48.1 fL NILSA RODRIGES Comment:Testing performed by : [address] [address] NRBC abs 0.00 0.00 - 0.01 K/cumm NILSA RODRIGES Comment:Testing performed by : [address] [address] Blood (Blood, Venous) 04/19/2024 4:57 PM CDT 04/19/2024 5:02 PM CDT Narrative NILSA RODRIGES - 04/19/2024 5:05 PM CDT Potential Stroke Patient us Rehab Kyle YOUNG LAB BLOOD ORDERABLES Final Resu lt NILSA [address] [facility] [place] [address] * (ABNORMAL) aPTT (04/19/2024 4:57 PM CDT) aPTT 64(H) 22 - 37 sec Comment: Ref Range High Interpretive data aPTT test has not been evaluated for monitoring heparin therapy. The anti-Xa is the preferred test. Current interpretive data was last revised on 2019. Testing performed by: [address] [address] Blood (Blood, Venous) 04/19/2024 4:57 PM CDT 04/19/2024 5:02 PM CDT Narrative NILSA - 04/19/2024 5:15 PM CDT Potential stroke patient. Rehab Kyle YOUNG LAB BLOOD ORDERABLES Final Resu lt Performing Organization Address [facility] Co de Phone Number NILSA [address] [place] [address] * Protime-INR (04/19/2024 4:57 PM CDT) PT 13.5 12.0 - 14.6 sec Comment:Testing performed by : [address] [address] [address] INR 1.0 0.9 - 1.2 NILSA RODRIGES Comment: Ref Range High Interpretive data Oral anticoagulant therapeutic ranges: Venous thromboembolism prophylaxis or treatment: 2.0-3.0 CARDIOLOGY Standard range: 2.0-3.0 High-intensity range: 2.5-3.5 Refer to indication-specific guidelines for appropriate target ranges for prosthetic heart valve replacement. Current interpretive data was last revised on 2019. Testing performed by: [address] [address] Blood 04/19/2024 4:57 PM CDT 04/19/2024 5:02 PM CDT [facility] Kyle YOUNG LAB BLOOD ORDERABLES Final Resu lt Performing Organization Address [facility] Co de Phone Number [facility] [place] [address] * (ABNORMAL) Comprehensive metabolic panel (04/19/2024 4:57 PM CDT) Sodium 137 135 - 145 mmol/L Comment:Testing performed by : [address] [address] Potassium, pl 3.8 3.3 - 4.9 mmol/L NILSA RODRIGES Comment:Testing performed by : [address] [address] Chloride 96(L) 97 - 110 mmol/L NILSA RORDIGES Comment:Testing performed by : [address], [place]., [address] CO2 26 22 - 32 mmol/L NILSA Comment:Testing performed by : [address] [address] Anion gap 15 2 - 15 mmol/L NILSA Comment:Testing performed by : [address], [place]., [address] BUN 22 6 - 25 mg/dL NILSA Comment:Testing performed by : [address], [place]., [address] Creatinine 2.30(H) 0.60 - 1.10 mg/dL NILSA Comment:Testing performed by : [address] [address] Glucose 114 70 - 199 mg/dL NILSA [...] was last revised 2022. Testing performed by: [address] [address] Calcium 9.2 8.5 - 10.3 mg/dL NILSA Comment:Testing performed by : [address] [address] Bilirubin, total 0.3 0.1 - 1.2 mg/dL NILSA Comment:Testing performed by : [address] [address] Protein, pl 8.1 6.5 - 8.5 g/dL NILSA Comment:Testing performed by : [address], [place]., [address] Albumin 4.1 3.5 - 5.0 g/dL NILSA Comment:Testing performed by : [address], [place] [address] Alk phos 133(H) 40 - 130 Units/L NILSA RODRIGES Comment:Testing performed by : [facility], [address] [place] [address]., [address] ALT 50(H) 7 - 45 Units/L NILSA RODRIGES Comment:Testing performed by : [address] [address] AST 33 10 - 45 Units/L NILSA Comment:Testing performed by : [address] [address] Blood (Blood, Venous) 04/19/2024 4:57 PM CDT 04/19/2024 5:02 PM CDT Narrative NILSA - 04/19/2024 5:44 PM CDT Potential Stroke Patient Rehab Kyle YOUNG LAB BLOOD ORDERABLES Final Resu lt Performing Organization Address City/[facility]/ZIP Co de Phone Number [address] [place] [place] [address] * POCT glucose (04/19/2024 4:52 PM CDT) [facility] Signature Glucose, POC 115 70 - 199 mg/dL Comment:Testing performed by : [facility], [address] [place] [address], [address] Blood 04/19/2024 4:52 PM CDT 04/19/2024 4:52 PM CDT Notinfile Unknown LAB POCT ORDERABLES - DEVICE F inal Result Performing Organization Address City/[facility]/ZIP Co de Phone Number [address] [place] [employer] [place] [address] * CT Stroke Head WO Contrast (04/19/2024 [...] PM T: ??04/19/2024 5:14 PM Report ID: [id number] Reading Location: ??[id number] Procedure Note José Miguel Sauer MD - [...] Miguel Sauer M.D. LB: LB Report ID: [id number] Reading Location: [place] [address] us Rehab Kyle YOUNG IMG CT PROCEDURES Final [...] D: ??04/08/2024 6:35 PM T: Report ID: [id number] Reading Location: ??[id number] Procedure Note Tahmina Feliciano MD - 04/08/2024 [...] Tahmina Feliciano M.D. SN T: Report ID: [id number] Reading Location: [id number] Brook Muhammad NP IMG XR PROCEDURES Final Res ult * OR INJECTION SINGLE/THREAD CLIPPER TRIGGER POINT 1/2 MUSCLES (04/06/2024 10:00 AM [...] with no immediate complications us Brook Muhammad FR[facility]ING AND HANGING IN CLINIC/BEDSIDE ORDERABLE S Final Result * Colonoscopy (03/01/2024 8:49 AM CDT) Anatomical Region Laterality Modality Other Narrative Procedure Note Jaya Grier MD - 03/01/2024 8:49 AM CDT [facility] GI ENDOSCOPY Patient Name: Barbara Chakraborty Procedure Date: 03/01/2024 8:49 AM Date of : 1950 Admit Type: Outpatient Age: 73 Gender: Female Attending MD: Jaya Grier M.D. Room: [facility] ENDOSCOPY ROOM 06 Note Status: Finalized Procedure: [...] The scope was passed under direct vision.The [id number] colonoscope was introduced through theanus and advanced [...] On: 03/01/2024 8:49 AM Recognized by the [place] [employer] for Gastrointestinal Endoscopy for promoting quality [...] vitamin-D. ??History of end-stage renal disease. ? Inspector Floor/Model: [employer] A (S/N [id number]) CLINICAL INFORMATION: Current height: ??61 ??inches ? [...] PM T: ??01/22/2024 1:02 PM Report ID: [id number] Reading Location: ??[id number] Procedure Note Rafaela Paulino MD - 01/22/2024 EXAM DESCRIPTION: DEXA AXIAL SKELETON BONE DENSITY 1 OR MORE SITES REASON FOR STUDY: 73 y/o year old F with given history of: Post menopausal status. History of taking vitamin-D. History of end-stagerenal disease. Inspector Floor/Model: [employer] A (S/N [id number]) CLINICAL INFORMATION: Current height: 61 inches Maximum [...] Electronically signed by Rafaela Paulino M.D. TW: FAIZAN Report ID: [id number] Reading Location: [id number] us Cherelle Corcoran MD IMG DXA PROCEDURE S [...] age 40, based on guidelines of the [place] [employer] (ACR Practice Parameter for the Performance of Screening and Diagnostic Mammography) and [place] [employer] and Gynec[employer]. For women [...] suspicious finding in either breast on mammogram. us Cherelle Corcoran MD IMG MAMMO PROCEDU RES Final Result * Hepatitis panel, acute Blood (10/15/2023 6:50 AM CDT) Hep A IgM Nonreactive Nonreactive Comment: Interpretive Data: If Hep A IgM Ab is reported as Equivocal, a new sample should be drawn in two weeks for testing. Current interpretive data was last revised on 19. Hep B core IgM Nonreactive Nonreactive NILSA Comment: Interpretive Data If HepB Core IgM Ab is reported as Equivocal, a new sample should be drawn in two weeks for testing. Current interpretive data was last revised on 19. Hep C Ab Nonreactive Nonreactive NILSA Comment: Interpretive Data Nonreactive: Antibodies to HCV [...] last revised on 2019. HepBsAg Nonreactive Nonreactive NILSA Blood 10/15/2023 6:50 AM CDT 10/15/2023 7:07 AM CDT Jimbo Strauss MD LAB MICROBIOLOGY - GENERAL FREDDY HALEY Final Result NILSA [address] [place] [address] * (ABNORMAL) Albumin Creatinine Ratio, Urine (10/10/2022 11:39 AM CDT) Albumin Ur 3,240.2 mg/L NILSA RODRIGES Comment: Interpretive Data No reference range established. Current interpretive data was last revised 2018. Testing performed by: [address] [address] Creatinine Ur 74.8 mg/dL NILSA RODRIGES Comment: Interpretive Data No reference range established. Current interpretive data was last revised 2018. Testing performed by: [address] [address] Albumin Creatinine Ratio, Ur 4,332(H) 1 - 29 mg/g NILSA RODRIGES Comment:Testing performed by : [address] [address] Urine 10/10/2022 11:3 9 AM CDT 10/10/2022 1:45 PM CDT Markie Ryan MD LAB URINE ORDERABLES Final Re sult NILSA [address] [facility] Department [place] [address] * (ABNORMAL) Diabetic Eye Exam (05/27/2022) Historical Provider HEALTH MAINTENANCE Final Result from Last 3 Months or Most Recently Relevant to Health Maintenance Insurance MEDICARE MEDICARE IDLA MEDICARE IDPA MEDICARE IDPA Advance Directives For more information, please contact: [phone] Documents on File Type Date Recorded Patient Research Chief Engineer Expl anation ADVANCE DIRECTIVE 02/02/2024 12:34 PM Erik r of Drawing Press Operator-Medical * Full Code (Latest Code Status on [...] Gayle Daughter Health Care Agent Care Teams Insulation Extruder Operator Relationship Specialty Start Date End Date Cherelle Corcoran MD PCP - General Family Medicine 08/30/19 Mark Queen MD Consulting Physician Infectious Diseases 01/10/20 Rudolph Welch MD [address] [facility] [address] [place] [address] Consulting Physician Infectious Diseases 12/05/22 Markie Ryan MD [address] [facility] [address] [place] [address] Consulting Physician Nephrology 12/05/22 [place] [address] [address] Consulting Physician Nephrology 10/22/23 Jaya Grier MD [address] [facility] [address] [place] [address] Consulting Physician Gastroenterology 02/01/24
--- OUTSIDE RECORDS SUMMARY | 2024-07-04 04:00 | XMS_ITS | Encounter Summary ---
Author Organization [facility] Healthcare Address [address] [place] [address] Care Team Providers Care Semiconductor Wafers Etcher Stripper Name Role Phone Cherelle Corcoran MD Primary Care Pro vider Mark Queen MD Unavailable [phone] Rudolph Welch MD Unavailable [phone] Markie Ryan MD Unavailable Jimbo Strauss MD Unavailable [phone] Jaya Grier MD Unavailable Encounter Details Date Type Department Care Team (Late st Contact Info) Description 05/16/2024 9:50 AM PAD EXTRACTION TENDER Lab [facility] [address] [place] [address] Mixed hyperlipidemia Social History Tobacco Use Types Packs/Day Years [...] materials from doctor or pharmacy Often 01/20/2024 [facility] Utilities Answer Date Recorded In the [...] often do you attend chur ch or jew services? More than 4 times per year 04/20/2024 Do you belong to any clubs o r organizations such as mu-ism groups, unions, fraternal or athletic groups, or [...] place to sleep or slept in a mcfp (including now)? No 10/30/2023 Housing Stability Vital [...] in the past 12 m [facility], were you homeless or living in a mcfp (including now)? No 04/20/2024 Personal Safety Answer Date Recorded Have you ever been in or are you currently in a harmful physical or emotional relationship or is someone making you feel afraid or unsafe? Denies 04/19/2024 Comments No Sex and Gender Information Value Date Recorded Sex Assigned at Not on file Legal Sex Female 9:03 AM PAD EXTRACTION TENDER Gender Identity Female 02/08/2020 6:39 PM CDT Sexual Orientation Not on file documented as of this encounter Miscellaneous Notes * Result Encounter Note - Smith Gibbs MD - 05/17/2024 8:21 AM PAD EXTRACTION TENDER Ms. Mylene and Areli, Cholesterol is higher than before. Let's restart the Atorvastatin at 20 mg daily. You can do the 40mg tablet every other day or split it in half and take every day. Best, Dr. Smith Gibbs Endocrinology EXTRACTION TENDER documented in this encounter Plan of Treatment Upcoming Encounters Date Type Department Care Team (Latest Contact Info) Description 07/13/2024 9:00 AM PAD EXTRACTION TENDER Hospital Encounter [facility] [address] [place] [address] Jaya Grier MD [address] [facility] [address] [place] [address] 07/13/2024 9:00 AM PAD EXTRACTION TENDER - 07/13/2024 9:30 AM PAD EXTRACTION TENDER Surgery [facility] Lab [address] [place] [address] Jaya Grier MD [address] [facility] [address] [place] [address] ESOPHAGOGASTRODUODENOSCOPY Scheduled Procedures Name Priority Associated Diagnoses Date/Ti me ESOPHAGOGASTRODUODENOSCOPY Anemia, unspecified type Gastritis without bleeding, unspecified chronicity, unspecified gastritis type 07/13/2024 9:00 AM PAD EXTRACTION TENDER COLONOSCOPY Iron deficiency anemia due to chronic blood loss documented as of this encounter Procedures Procedure Name Priority Date/Time Associated Diagnosis Comments LIPID PANEL Routine 05/16/2024 10:14 AM PAD EXTRACTION TENDER Mixed hyperlipidemia documented in this encounter Results * Lipid panel (05/16/2024 10:14 AM PAD EXTRACTION TENDER) Cholesterol 160 30 - 199 mg/dL Comment: [...] NILSA DIAS Blood 05/16/2024 10:1 4 AM PAD EXTRACTION TENDER 05/16/2024 10:50 AM PAD EXTRACTION TENDER Narrative NILSA DIAS - 05/16/2024 11:23 AM PAD EXTRACTION TENDER These lab test should be done fasting. This means do not eat or drink for at least 12 hours prior to getting your blood drawn. us Smith Gibbs MD LAB BLOOD ORDERABLES Final R esult NILSA [facility] [address] 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 06/26/2024 3:05 AM PAD EXTRACTION TENDER documented as of this encounter Care Teams Semiconductor Wafers Etcher Stripper Relationship Specialty Start Date End Date Cherelle Corcoran MD PCP - General Family Medicine 08/30/19 Mark Queen MD Consulting Physician Infectious Diseases 01/10/20 Rudolph Welch MD [address] [facility] [address] [place] [address] Consulting Physician Infectious Diseases 12/05/22 Markie Ryan MD [address] [facility] [address] [place] [address] Consulting Physician Nephrology 12/05/22 [place] [address] [facility] [address] [place] [address] Consulting Physician Nephrology 10/22/23 Jaya Grier MD [address] [facility] [address] [place] [address] Consulting Physician Gastroenterology 02/01/24 documented as of this encounter
--- OUTSIDE RECORDS SUMMARY | 2024-07-04 04:00 | XMS_ITS | Encounter Summary ---
Author Organization [facility] Healthcare Address [address] [place] [address] Care Team Providers Care Egg Packer Name Role Phone Cherelle Corcoran MD Primary Care Pro vider Mark Queen MD Unavailable [phone] Rudolph Welch MD Unavailable Markie Ryan MD Unavailable [phone] Jimbo Strauss MD Unavailable [phone] Jaya Grier MD Unavailable Reason for Visit * Reason Comments Parkinson's Disease * Consultation (Routine) - Closed Specialty Diagnoses / Procedures Referred By Maryse t Referred To Contact Neurology Diagnoses Parkinsonism, unspecified Parkinsonism type (HCC) Cherelle Corcoran MD [address] [address] Phone: tel: fax: [facility] Neurology [address] [place] [phone] Phone: tel: fax: Referral ID Status Reason Start Date Expiration Date V isits Requested Visits Authorized [id number] Closed Specialty Services Required 04/18/2024 05/18/2025 1 1 Encounter Details Date Type Department Care Team (Late st Contact Info) Description 05/18/2024 9:00 AM HOTEL SECURITY OFFICER Office Visit [facility] Neurology [address] [facility] [address] [place] [phone] Poncho Hill Si, MD [address] [facility] [address] [place] [address] Neuroleptic-induced parkinsonism (HCC) (Primary Dx); Lacunar infarction (HCC) Social History Tobacco Use Types Packs/Day Years [...] materials from doctor or pharmacy Often 01/20/2024 [facility] Utilities Answer Date Recorded In the past 12 months has e electric, gas, oil, or water company [...] often do you attend chur ch or bahai services? More than 4 times per year 04/20/2024 Do you belong to any clubs o r organizations such as judaism groups, unions, fraternal or athletic groups, or [...] place to sleep or slept in a fdc (including now)? No 10/30/2023 Housing Stability Vital Sign Answer Fuentes e Recorded In the last 12 months, was t here a time when you were not able to pay the mortgage or rent on time? No 04/20/2024 In the past 12 months, how m any times have you moved where you were living? 0 04/20/2024 At any time in the past 12 m [facility], were you homeless or living in a fdc (including now)? No 04/20/2024 Personal Safety Answer Date Recorded Have you ever been in or are you currently in a harmful physical or emotional relationship or is someone making you feel afraid or unsafe? Denies 04/19/2024 Comments No Sex and Gender Information Value Date Recorded Sex Assigned at Not on file Legal Sex Female 9:03 AM HOTEL SECURITY OFFICER Gender Identity Female 02/08/2020 6:39 PM CDT Sexual Orientation Not on file documented as of this encounter Last Filed Vital Signs Vital Sign Reading Time Taken Comments Blood Pressure 128/50 05/18/2024 9:04 AM HOTEL SECURITY OFFICER Pulse 76 05/18/2024 9:04 AM HOTEL SECURITY OFFICER Temperature - - Respiratory Rate - - Oxygen Saturation 95% 05/18/2024 9:04 AM HOTEL SECURITY OFFICER Inhaled Oxygen Concentration - - Weight 60.8 kg (134 lb) 05/18/2024 9:04 AM HOTEL SECURITY OFFICER Height 157.5 cm (5' 2 ) 05/18/2024 9:04 AM HOTEL SECURITY OFFICER Body Mass Index 24.51 05/18/2024 9:04 AM HOTEL SECURITY OFFICER documented in this encounter Progress Notes * Poncho Hill Si, MD - 05/18/2024 9:00 AM CST Patient ID: Barbara Chakraborty is a 73 y.o. female Barbara Chakraborty is being seen as a new consult at the request of Cherelle Lindsay* for drug induced parkinsonism. History of Present Illness: 73 year old woman with history of schizophrenia, drug induced parkinsonism, dementia, ESRD on HD, HTN, HLD, DM presents for evaluation. Pertinent Medical Issues: She was recently admitted to the hospital with episode of unresponsiveness after dialysis. EEG was done show diffuse slowing consistent with metabolic encephalopathy. Neurology team assessed the patient and thought episode of altered consciousness is likely related to dialysis. And repeat MRI showed chronic lacunar infarcts. She voiced tremors mostly on left hand which could fluctuate but overall unchanged. She is taking benztropine 2 mg daily. She could walk short disturbance without assist. No significant balance issue. No fall. Only climb steps could be challenging at times. She is taking aspirin 81 mg daily. Her memory is overall unchanged as per son. No behavior change. She is following psychiatrist regularly. She is on risperidone. He has numbness in fingers and toes but not painful she is taking gabapentin. Review of Systems As above. All other systems were reviewed and found to be normal or non-contributory. Past Medical History: Diagnosis Date Anemia Arthritis CHF (congestive heart failure) (CMS/HCC) (HCC) CKD (chronic kidney disease) stage V requiring chronic dialysis (HCC) Dementia (HCC) Depression Diabetic neuropathy (HCC) End stage chronic kidney disease (CMS/HCC) (HCC) hemodialysis T Th Sat GERD (gastroesophageal reflux disease) HL (hearing loss) Hyperlipidemia Hypertension Movement disorder Osteomyelitis (HCC) Rotator cuff tear, left Schizophrenia ([facility]) Type 2 diabetes mellitus ([facility]) Past Surgical History: Procedure Laterality Date SECTION Right right foot COLONOSCOPY EYE SURGERY cataracts FLUORO GUIDED INJECTION SHOULDER LEFT Left 12/18/2023 TOE AMPUTATION Right 01/06/2020 4th toe amp/ foot debridement/ Dr. Anat Pelayo TUNNELED LINE PLACEMENT > 5 YEARS N/A 10/15/2023 Family History Problem Relation Age of Onset Diabetes Mother Heart disease Mother Kidney disease Mother Stomach cancer Father Alcohol abuse Father Diabetes Sister Diabetes Sister Diabetes Brother Social History Tobacco Use Smoking status: Never Passive exposure: Never Smokeless tobacco: Never Substance and Sexual Activity Drug use: Never Sexual activity: Not Currently Partners: Male Alcohol Use: Not At Risk (02/24/2024) AUDIT-C Frequency of Alcohol Consumption: Never Average Number of Drinks: Patient does not drink Frequency of Binge Drinking: Never No Known Allergies Current Outpatient Medications Medication Sig Dispense Refill acetaminophen 500 mg capsule Take 2 capsules (1,000 mg total) by mouth 3 (three) times a day as needed for mild pain (pain scale 1-4) alpha lipoic acid 600 mg capsule Take 1 capsule (600 mg total) by mouth daily 30 capsule 1 aspirin 81 mg chewable tablet Take 1 tablet (81 mg total) by mouth daily 90 tablet 1 atorvastatin (LIPITOR) 40 mg tablet Take 1 tablet (40 mg total) by mouth nightly 30 tablet 11 benztropine (COGENTIN) 2 mg tablet Take 1 tablet (2 mg total) by mouth daily 30 tablet 0 blood-glucose sensor (FreeStyle Madhav [...] 90 tablet 1 flash glucose scanning reader [facility] Use Madhav 3 reader to scan Madhav 3 sensor 1 each 0 fluticasone propionate (FLONASE) 50 mcg/actuation nasal spray Administer 2 sprays into each nostrildaily as needed for rhinitis FreeStyle Madhav 3 [place] [facility] Use Madhav 3 reader to scan Madhav [...] by mouth 3 (three) times a day hydrALAZINE (APRESOLINE) 25 mg tablet Take 1 [...] No current facility-administered medications for this visit. Physical Exam Vitals BP 128/50 (BP Location: Right arm, Patient Position: Sitting) Pulse 76 Ht 157.5 cm (5' 2 ) Wt 60.8 kg (134 lb) SpO2 95% BMI 24.51 kg/m?? Neurological exam: Constitutional: Appears well and in no acute distress Mental Status: Alert and oriented to person only, Speech is fluent. Normal comprehension, poor attention, no extinction/neglect, follow simple commands, difficulty with 3 steps command Cranial Nerves: pupils are equal, round, and reactive to light, Extraocular movements are intact, face symmetric, facial sensation intact, palate rise symmetric, TPZ symmetric, tongue midline, no atrophy or fasciculations Motor: Normal bulk and increased tone. No pronator drift. Strength: giveaway weakness with at least 4/5 strength throughout in both proximal and distal muscles Sensory: Intact to LT, temperature and decreased vibration sense at ankles bilat Reflexes: 1/4 throughout Gait: narrow stride, decrease arm swing, slow turns Coordination: Good FNF, resting tremors in both hands R>L) Romberg's unsteady 04/20/2024 MRI brain w/o: Right thalamic chronic lacunar infarct. Assessments and Plan 73 year old woman with history of schizophrenia, drug induced parkinsonism, dementia, ESRD on HD, HTN, HLD, DM with neuropathy and lacunar infarct. Drug induced parkinsonism and dementia Tremors and cognitive function overall unchanged as observed by family member and patient. No fall or significant imbalance over past year. Continue with cogentin 2 mg daily Follow up with psychiatrist As her cognitive function has overall unchanged without behavior disturbances, will not add medication for now for dementia to avoid polypharmacy. Lacunar infarct Manufacturing Coordinator on stroke risk factor and preventive measures Continue with aspirin 81 mg daily and statin (goal LDL <70) DM neuropathy She mostly has numbness without tingling pain lately. -on gabapentin after HD session. RTC 1 yr. Poncho Hill MD Neurology Cc: [facility]* My total encounter time on 05/18/2024 was 50 minutes which was spent in the activities documented in the note. This includes time spent prior to the visit and after the visit in direct care of the patient. This time does not include time spent in any separately reportable services. L SECURITY OFFICER documented in this encounter Miscellaneous Notes * Addendum Note - Poncho Hill Si, MD - 05/18/2024 9:00 AM CSTAddended by: PONCHO HILL SI on: 05/24/2024 01:24 PM Modules accepted: Level of Service L SECURITY OFFICER documented in this encounter Plan of Treatment Upcoming Encounters Date Type Department Care Team (Latest Contact Info) Description 07/13/2024 9:00 AM HOTEL SECURITY OFFICER Hospital Encounter [facility] GI Lab [address] [place] [phone] Jaya Grier MD [address] [place] [address] [address] [place] [phone] 07/13/2024 9:00 AM HOTEL SECURITY OFFICER - 07/13/2024 9:30 AM HOTEL SECURITY OFFICER Surgery [facility] GI Lab [address] [place] [phone] Jaya Grier MD [address] [place] [address] [address] [place] [id number] ESOPHAGOGASTRODUODENOSCOPY Scheduled Procedures Name Priority Associated Diagnoses Date/Ti wv ESOPHAGOGASTRODUODENOSCOPY Anemia, unspecified type Gastritis without bleeding, unspecified chronicity, unspecified gastritis type 07/13/2024 9:00 AM HOTEL SECURITY OFFICER COLONOSCOPY Iron deficiency anemia due to chronic blood loss documented as of this encounter Visit Diagnoses Diagnosis Neuroleptic-induced parkinsonism (HCC)- Primary Secondary Parkinsonism Lacunar infarction (HCC) Unspecified cerebral artery occlusion with cerebral infarction Anemia, unspecified type Gastritis without bleeding, unspecified chronicity, unspecified gastritis type documented in this encounter Discontinued Medications Medication Sig Discontinue Reason Start Date End Da te azithromycin (ZITHROMAX) 250 mg tablet Therapy completed 04/28/2024 05/18/2024 Lagevrio, EUA, 200 mg capsule (EUA) TAKE 4 CAPSULES BY MOUTH EVERY 12 HOURS FOR 5 DAYS Therapy completed 04/29/2024 05/18/2024 documented as of this encounter Orders Outpatient Referral Count Last Ordered Date Fir st Ordered Date AMB REFERRAL TO NEUROLOGY 1 05/18/2024 documented in this encounter 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 06/26/2024 3:05 AM HOTEL SECURITY OFFICER documented as of this encounter Care Teams Egg Packer Relationship Specialty Start Date End Date Cherelle Corcoran MD PCP - General Family Medicine 08/30/19 Mark Queen MD Consulting Physician Infectious Diseases 01/10/20 Rudolph Welch MD [address] [place] [address] Consulting Physician Infectious Diseases 12/05/22 Markie Ryan MD [address] [place] [address] Consulting Physician Nephrology 12/05/22 [place] [address] [address] Consulting Physician Nephrology 10/22/23 Jaya Grier MD [address] [place] [address] Consulting Physician Gastroenterology 02/01/24 documented as of this encounter
--- OUTSIDE RECORDS SUMMARY | 2024-07-04 04:00 | XMS_ITS | Encounter Summary ---
Author Organization [facility] Healthcare Address [address] [place] [address] Care Team Providers Care Planning Division Superintendent Name Role Phone Cherelle Corcoran MD Primary Care Pro vider Mark Queen MD Unavailable [phone] Rudolph Welch MD Unavailable Markie Ryan MD Unavailable Dulce Vega RN Unavailable [phone] Jimbo Strauss MD Unavailable [phone] Jaya Grier MD Unavailable Encounter Details Date Type Department Care Team (Late st Contact Info) Description 05/02/2024 Telephone [facility] Primary Care at [address] [phone] Cherelle Corcoran MD [address] [place] [phone] Social History Tobacco Use Types Packs/Day [...] the past 12 months has th e [employer], gas, oil, or water [employer] threatened to shut off services in your [...] any clubs o r organizations such as baptism groups, unions, fraternal or athletic groups, or [...] place to sleep or slept in a fpc (including now)? No 10/30/2023 Housing Stability Vital Sign Answer Fuentes e Recorded In the last 12 months, was t here a time when you were not able to pay the mortgage or rent on time? No 04/20/2024 In the past 12 months, how m any times have you moved where you were living? 0 04/20/2024 At any time in the past 12 m [facility], were you homeless or living in a fpc (including now)? No 04/20/2024 Personal Safety Answer Date Recorded Have you ever been in or are you currently in a harmful physical or emotional relationship or is someone making you feel afraid or unsafe? Denies 04/19/2024 Comments No Sex and Gender Information Value Date Recorded Sex Assigned at Not on file Legal Sex Female 9:03 AM INDUSTRIAL SERVICE TECHNICIAN Gender Identity Female 02/08/2020 6:39 PM CDT Sexual Orientation Not on file documented as of this encounter Miscellaneous Notes * Telephone Encounter - Valeria Jackson - 05/02/2024 12:47 PM CST Received a call from patient's daughter regarding the appointment for today with Dr Corcoran. She states Barbara tested positive for Covid and is not feeling well. She was unsure if she needs to keep the appointment due to having an appointment on Thursday this week. She also would like Dr Corcoran to order a chest x-ray for her mother./ts STRIAL SERVICE TECHNICIAN documented in this encounter Plan of Treatment Upcoming Encounters Date Type Department Care Team (Latest Contact Info) Description 07/13/2024 9:00 AM INDUSTRIAL SERVICE TECHNICIAN Hospital Encounter [facility] GI Lab [address] [place] [address] Jaya Grier MD [address] [facility] [address] [place] [address] 07/13/2024 9:00 AM INDUSTRIAL SERVICE TECHNICIAN - 07/13/2024 9:30 AM INDUSTRIAL SERVICE TECHNICIAN Surgery [facility] GI Lab [address] [place] [id number] Jaya Grier MD [address] [facility] [address] [place] [address] ESOPHAGOGASTRODUODENOSCOPY Scheduled Procedures Name Priority Associated Diagnoses Date/Ti me ESOPHAGOGASTRODUODENOSCOPY Anemia, unspecified type Gastritis without bleeding, unspecified chronicity, unspecified gastritis type 07/13/2024 9:00 AM INDUSTRIAL SERVICE TECHNICIAN COLONOSCOPY Iron deficiency anemia due to chronic blood loss documented as of this encounter Visit Diagnoses Not on filedocumented in this encounter 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 06/26/2024 3:05 AM INDUSTRIAL SERVICE TECHNICIAN documented as of this encounter Care Teams Planning Division Superintendent Relationship Specialty Start Date End Date Cherelle Corcoran MD PCP - General Family Medicine 08/30/19 Mark Queen MD Consulting Physician Infectious Diseases 01/10/20 Rudolph Welch MD [address] [facility] [address] [place] [address] Consulting Physician Infectious Diseases 12/05/22 Markie Ryan MD [address] [facility] [address] [place] [address] Consulting Physician Nephrology 12/05/22 Dulce Vega, ALIREZA [address] [place] [address] [address] [place] [address] Truck Unloader 10/07/23 05/03/24 [place] [address] [facility] [address] [place] [address] Consulting Physician Nephrology 10/22/23 Jaya Grier MD [address] [facility] [address] [place] [address] Consulting Physician Gastroenterology 02/01/24 documented as of this encounter
--- OUTSIDE RECORDS SUMMARY | 2024-07-04 04:00 | XMS_ITS | Encounter Summary ---
Author Organization [facility] Healthcare Address [address] [place] [address] Care Team Providers Care Application Project Leader Name Role Phone Cherelle Corcoran MD Primary Care Pro vider Mark Queen MD Unavailable [phone] Rudolph Welch MD Unavailable [phone] Markie Ryan MD Unavailable [phone] Dulce Vega RN Unavailable [phone] Jimbo Strauss MD Unavailable [phone] Jaya Grier MD Unavailable Reason for Referral * Consultation (Routine) - Closed Specialty Diagnoses / Procedures Referred By Contac t Referred To Contact Gastroenterology Diagnoses History of gastritis Cherelle Corcoran MD [facility] [address] Phone: tel: fax: [facility] Gastroenterology at [address] [place] [address] Phone: tel: Referral ID Status Reason Start Date Expiration Date V isits Requested Visits Authorized [id number] Closed Specialty Services Required 05/02/2024 06/01/2025 1 1 Question Answer Process Instructions: THE AMBULATORY REFERRAL TO GASTROENTEROLOGY IS NOT AN ORDER FOR A PROCEDURE (I.E. EGD, COLONOSCOPY.) USE THE DIRECT SCHEDULING CASE REQUEST ORDER (GI50) IF THE PATIENT REQUIRES A PROCEDURE TO BE PERFORMED. Please select the performing region: [facility] [[id number]] Please select the performing department: [facility] 280 [[id number]] # of visits: 1 [employer] Reason for Visit * Reason Comments Hospital Follow Up Encounter Details Date Type Department Care Team (Late st Contact Info) Description 05/02/2024 3:30 PM [employer] Office Visit [facility] Primary Care at [address] [address] Cherelle Corcoran MD [address] [place] [id number] Altered mental status, unspecified altered mental status type (Primary Dx); Primary hypertension; COVID; Iron deficiency anemia, unspecified iron deficiency anemia type; History of gastritis Social History Tobacco Use Types Packs/Day Years [...] doctor or pharmacy Often 01/20/2024 [facility] Utilities Answer Date Recorded In the past 12 months has th e [employer], gas, oil, or water company threatened to [...] often do you attend chur ch or temple services? More than 4 times per year 04/20/2024 Do you belong to any clubs o r organizations such as methodist groups, unions, fraternal or athletic groups, or [...] any time in the past 12 m [facility], were you homeless or living [...] on file Legal Sex Female 9:03 AM [employer] Gender Identity Female 02/08/2020 6:39 PM CDT Sexual Orientation Not on file documented as of this encounter Last Filed Vital Signs Vital Sign Reading Time Taken Comments Blood Pressure 108/66 05/02/2024 3:36 PM [employer] Pulse 57 05/02/2024 3:36 PM [employer] Temperature 36.2 ??C (97.1 ??F) 05/02/2024 3:36 PM CS T Respiratory Rate 18 05/02/2024 3:36 PM [employer] Oxygen Saturation 97% 05/02/2024 3:36 PM [employer] Inhaled Oxygen Concentration - - Weight 64.9 kg (143 lb) 05/02/2024 3:36 PM [employer] Height 157.5 cm (5' 2 ) 05/02/2024 3:36 PM [employer] Body Mass Index 26.16 05/02/2024 3:36 PM [employer] documented in this encounter Ordered Prescriptions Prescription Sig Dispense Quantity Refills Last Filled Start Date End Date NIFEdipine (NIFEdipine CC) 90 mg 24 hr tabletIndications: Primary hypertension Take 1 tablet (90 mg total) by mouth daily 05/02/2024 05/02/2025 documented in this encounter Progress Notes * Cherelle Corcoran MD - 05/02/2024 3:30 PM CST Images from the original note were not included. Assessment/Plan: Assessment/Plan Diagnoses and all orders for this visit: Altered mental status, unspecified altered mental status type (Primary) Assessment & Plan: Reviewed hospital discharge summary Now resolved Upcoming appointment with neurology Primary hypertension Assessment & Plan: BP controlled Continue nifedipine, hold prior to dialysis Orders: - NIFEdipine (NIFEdipine CC) 90 mg 24 hr tablet; Take 1 tablet (90 mg total) by mouth daily COVID Comments: AFVSS, exam benign Daughter requesting CXR, ordered Continue antiviral from Orders: - XR Chest PA Lateral 2 Views; Future Iron deficiency anemia, unspecified iron deficiency anemia type Assessment & Plan: Recommend discussing IV iron with nephrology History of gastritis - Ambulatory referral to Gastroenterology; Future Return in about 3 months (around 08/02/2024) for Recheck. or sooner as needed if symptoms not improving or worsen. Strict return/ED precautions discussed. Subjective: Barbara Chakraborty is a 73 y.o. female here for Chief Complaint Patient presents with Hospital Follow Up HPI Recently hospitalized for AMS, thought to be related to BP fluctuation and medication side effect. Advised outpatient neurology follow up, has appointment 05/18. Holding BP medication in morning prior to dialysis COVID: symptoms started 1 week, seen at on and started on antiviral & zpack. Iron deficiency anemia: hasn't talked to nephrology about IV iron. Recent colonoscopy with polyps, advised repeat 3y Review of Systems Constitutional: Negative for fever. Psychiatric/Behavioral: Positive for confusion (baseline). Objective: Vital signs were reviewed. Vitals: 05/02/24 1536 BP: 108/66 BP Location: Left arm Patient Position: Sitting Pulse: 57 Resp: 18 Temp: 36.2 ??C (97.1 ??F) TempSrc: Temporal SpO2: 97% Weight: 64.9 kg (143 lb) Height: 157.5 cm (5' 2 ) Physical Exam Gen: NAD, comfortable, appears as stated age Eyes: no conjunctival injection, EOMI ENMT: external ears symmetric CV: Regular rate and rhythm, no murmurs, rubs or gallops Pulm: no increased work of breathing, clear to asculation bilaterally, no wheezing, rhonchi or rales Skin: no rashes or nodules, warm and dry MSK/Neuro: symmetric limb movement, using wheelchair for ambulation Psych: alert and oriented to person Cherelle Corcoran MD [employer] documented in this encounter Miscellaneous Notes * Assessment & Plan Note - Cherelle Corcoran MD - 05/06/2024 7:51 AM CSTAssociated Problem(s): Iron deficiency anemia Recommend discussing IV iron with nephrology [employer] * Assessment & Plan Note - Cherelle Corcoran MD - 05/06/2024 7:48 AM CSTAssociated Problem(s): Primary hypertension BP controlled Continue nifedipine, hold prior to dialysis [employer] * Assessment & Plan Note - Cherelle Corcoran MD - 05/06/2024 7:46 AM CSTAssociated Problem(s): AMS (altered mental status) Reviewed hospital discharge summary Now resolved Upcoming appointment with neurology [employer] documented in this encounter Plan of Treatment Upcoming Encounters Date Type Department Care Team (Latest Contact Info) Description 07/13/2024 9:00 AM [employer] Hospital Encounter [facility] [address] [place] [address] Jaya Grier MD [address] [place] [phone] 07/13/2024 9:00 AM [employer] - 07/13/2024 9:30 AM [employer] Surgery [facility] [address] [place] [phone] Jaya Grier MD [address] [place] [place] [address] ESOPHAGOGASTRODUODENOSCOPY Scheduled Procedures Name Priority Associated Diagnoses Date/Ti me ESOPHAGOGASTRODUODENOSCOPY Anemia, unspecified type Gastritis without bleeding, unspecified chronicity, unspecified gastritis type 07/13/2024 9:00 AM [employer] COLONOSCOPY Iron deficiency anemia due to chronic blood loss Scheduled Referrals Name Type Priority Associated Diagnoses Order Schedule Ambulatory referral to Gastroenterology Outpatient Referral Routine History of gastritis Expected: 05/16/2024 (Approximate), Expires: 05/02/2025 documented as of this encounter Results * XR Chest PA Lateral 2 Views (05/02/2024 5:00 PM [employer]) Anatomical Region Laterality Modality Body, Chest N/A Computed Radiogr aphy 05/05/2024 9:08 PM [employer] Narrative 05/05/2024 9:09 PM [employer] EXAM DESCRIPTION: XR CHEST PA LATERAL 2 [...] PM T: ??05/05/2024 9:09 PM Report ID: [id number] Reading Location: ??[id number] Procedure Note Larry Escobar MD - 05/05/2024 [...] Larry Escobar M.D. MJ: JOHN Report ID: [id number] Reading Location: [id number] Cherelle Corcoran MD IMG XR PROCEDURES Final Result documented in this encounter Visit Diagnoses Diagnosis Altered mental status, unspecified altered mental status type- Primary Primary hypertension Unspecified essential hypertension COVID Iron deficiency anemia, unspecified iron deficiency anemia type History of gastritis COVID Anemia, unspecified type Gastritis without bleeding, unspecified chronicity, unspecified gastritis type documented in this encounter Discontinued Medications Medication Sig Discontinue Reason Start Date End Da te NIFEdipine (NIFEdipine CC) 60 mg 24 hr tabletIndications:Uncontr olled hypertension TAKE 1 TABLET BY MOUTH DAILY 01/11/2024 05/02/2024 documented as of this encounter Historical Medications * This list may reflect changes made after this encounter. 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 06/26/2024 3:05 AM [employer] documented as of this encounter Care Teams Application Project Leader Relationship Specialty Start Date End Date Cherelle Corcoran MD PCP - General Family Medicine 08/30/19 Mark Queen MD Consulting Physician Infectious Diseases 01/10/20 Rudolph Welch MD [address] [place] [address] Consulting Physician Infectious Diseases 12/05/22 Markie Ryan MD [address] [place] [address] Consulting Physician Nephrology 12/05/22 Dulce Vega RN [address] [place] [address] [address] [place] [address] Head Grease Maker 10/07/23 05/03/24 [place] [address] [facility] [address] [place] [address] Consulting Physician Nephrology 10/22/23 Jaya Grier MD [address] [place] [address] Consulting Physician Gastroenterology 02/01/24 documented as of this encounter
--- OUTSIDE RECORDS SUMMARY | 2024-07-04 04:00 | XMS_ITS ---
Author Organization [facility] Address [address] [place] [address] Care Team Providers Care Stockroom Supervisor Name Role Phone Cherelle Corcoran MD Primary Care Pro vider Mark Queen MD Unavailable [phone] Rudolph Welch MD Unavailable Markie Ryan MD Unavailable Jimbo Strauss MD Unavailable [phone] Jaya Grier MD Unavailable Dialysis Access Sites Type Status Location Placement Date Removal Da te Hemodialysis Cath Double 10/15/23 Tunneled catheter Right Internal Jugular Active Right Neck (side) - Anterior 10/15/2023 Procedures Procedure Name Priority Date/Time Associated Diagnosis Comments LIPID PANEL Routine 05/16/2024 10:14 AM CHIEF COUNSEL Mixed hyperlipidemia POCT HEMOGLOBIN A1C Routine 05/16/2024 9:12 AM CHIEF COUNSEL Type 2 diabetes mellitus with diabetic neuropathy, with long-term current use of insulin (HCC) XR CHEST PA LATERAL 2 VIEWS Schedule Routine, Read Routine (OP Routine) 05/02/2024 5:00 PM CHIEF COUNSEL COVID POCT GLUCOSE DEVICE Routine 04/23/2024 4:39 [...] GLUCOSE DEVICE Routine 04/22/2024 12:15 PM CDT PLATING FOREMAN EVALUATE AND TREAT VIDEOFLUOROSCOPIC SWALLOW STUDY Routine [...] Routine) 04/06/2024 10:08 AM CDT Neck pain IN INJECTION SINGLE/PARANORMAL INVESTIGATOR TRIGGER POINT 1/2 MUSCLES Routine 04/06/2024 10:00 [...] or Most Recently Relevant to Health Maintenance Allergies No known active allergies Medications lidocaine [...] mouth daily as needed (Constipation) 595 g 024 Active FreeStyle Madhav 3 [facility] Use Madhav 3 reader to scan Madhav 3 sensor 024 Active pen needle, diabetic (Easy Touch) 32 gauge x 5/32 needleIndications :Type 2 diabetes mellitus with diabetic neuropathy, with long-term current use of insulin (HCC) USE DIRECTED FOUR TIMES DAILY 100 each 3 024 Active fluticasone propionate (FLONASE) 50 mcg/actuation nasal [...] mg total) by mouth nightly 30 tablet 024 2024 Active hydrALAZINE (APRESOLINE) 25 mg tabletIndications :hypertension Take 1 tablet (25 mg total) by mouth 2 (two) times a day 60 tablet 1 024 Active sucralfate (CARAFATE) 1 gram tabletIndications :Gastritis, [...] INJ) 75 mcg once every 2 weeks 2024 Active NIFEdipine (NIFEdipine CC) 90 mg 24 hr tabletIndications :Primary hypertension Take 1 tablet (90 mg total) by mouth daily 024 2024 Active carvediloL (COREG) 3.125 mg tablet Take 1 tablet (3.125 mg total) by mouth 2 (two) times a day Active alpha lipoic acid 600 mg capsuleIndication s:Type 2 diabetes mellitus with diabetic neuropathy, with long-term current use of insulin ([facility]),Diabetes, polyneuropathy (CMS/HCC) (HCC) Take 1 capsule (600 [...] type 2 diabetes mellitus (CMS/HCC) ([facility]) TAKE 1 CAPSULE BY MOUTH 3 [...] with orthopedics, reviewed note Will have HONEY Sandy follow up on PA for tramadol Assessment [...] kidney disease) stage 4, GFR 15-29 ml/min ([facility]) 12/07/2023 Tinnitus of both ears 11/04/2023 Mixed conductive and sensori neural hearing loss of both ears 11/04/2023 Dysfunction of both eustachian tubes 11/04/2023 ESRD on hemodialysis ([facility]) 11/02/2023 Assessment & Plan (01/06/2024 12:53 [...] 10/30/2023 Assessment & Plan (05/06/2024 7:49 AM CHIEF COUNSEL): Reviewed hospital discharge summary Now resolved Upcoming [...] stable Assessment & Plan (07/24/2023 1:51 PM CHIEF COUNSEL): Chronic/stable Parkinsonism 08/14/2022 Assessment & Plan (11/10/2023 4:43 PM CDT): Following with neurology On cogentin Assessment & Plan (07/24/2023 1:50 PM CHIEF COUNSEL): Following with neurology On cogentin twice a day Assessment & Plan (01/23/2023 9:20 AM CDT): Following with neurology On cogentin twice a day Assessment & Plan (10/10/2022 10:41 AM CDT): Following with neurology On cogentin Assessment & Plan (08/14/2022 10:46 AM CHIEF COUNSEL): Following with neurology, reviewed note On cogentin [...] - PT/OT recommends SNF. -[facility] ? Assessment & Plan (11/24/2021 2:07 PM CDT): Deconditioning 2/2 prolonged hospitalization. Daughter reports that prior to her illness, she was independent with a walker. - PT/OT recommends SNF. -[facility]. Assessment & Plan (11/23/2021 12:24 PM CDT): Deconditioning 2/2 prolonged hospitalization. Daughter reports that prior to her illness, she was independent with a walker. - PT/OT recommends SNF. -[facility]. Assessment & Plan (11/22/2021 1:34 PM CDT): Deconditioning 2/2 prolonged hospitalization. Daughter reports that prior to her illness, she was independent with a walker. - PT/OT recommends SNF. -[facility]. Assessment & Plan (11/21/2021 [...] care Assessment & Plan (08/14/2022 10:47 AM CHIEF COUNSEL): Following with podiatry Assessment & Plan (04/02/2022 [...] - renal consulted regarding volume management, possible terminal operations supervisor dialysis planning, expedite OP f/u. Serologies and urine studies ordered. ED neg, compliments neg, cryoglobulin pending, ANCA pending, HIV neg. Continued -Added metolazone 2.5mg/daily per renal 09/13- with improving swelling, Cr bump to 2.33 so held further -Transitioned to PO agents prior to DC (09/17) with ongoing clinical improvement. Goal weight 155lbs -Home with family at [place], production broacher consulted to review salt restrictions. -outpatient BMP, [...] - renal consulted regarding volume management, possible halfway dialysis planning, expedite OP f/u. Serologies and urine studies ordered. ED neg, compliments neg, cryoglobulin pending, ANCA pending, HIV neg. Continued -Added metolazone 2.5mg/daily per renal 09/13- with improving swelling, Cr bump to 2.33 so held further -Anticipate likely transition to PO agents prior to DC (?09/17) with ongoing clinical improvement. Goal weight 155lbs -Home with family at [place], production broacher consulted to review salt restrictions. Assessment & [...] - renal consulted regarding volume management, possible halfway dialysis planning, expedite OP f/u. Serologies and urine studies ordered. -Added metolazone 2.5mg/daily per renal. -Anticipate likely transition to PO agents prior to DC with ongoing clinical improvement. Goal weight 145-150lbs -Home with family at [place], production broacher consulted to review salt restrictions. Assessment & [...] - renal consulted regarding volume management, possible halfway dialysis planning, expedite OP f/u. Serologies and [...] - renal consulted regarding volume management, possible terminal operations supervisor dialysis planning, expedite OP f/u. Serologies and [...] - renal consulted regarding volume management, possible halfway dialysis planning, expedite OP f/u. Assessment & [...] net neg 1/2-1L/day. -consider renal consult regarding terminal operations supervisor dialysis planning, expedite OP f/u. Assessment & [...] net neg 1/2-1L/day. -consider renal consult regarding terminal operations supervisor dialysis planning. Assessment & Plan (09/06/2021 10:28 [...] neurology Assessment & Plan (07/24/2023 1:50 PM CHIEF COUNSEL): Following with neurology Assessment & Plan (01/23/2023 9:18 AM CDT): Following with neurology Assessment & Plan (10/10/2022 10:37 AM CDT): Following with neurology, ordered MRI, # given to son to schedule Assessment & Plan (06/09/2022 3:37 PM CHIEF COUNSEL): Needs to reschedule with neurology Looking into prison, but declined for [facility] for schizoaffective disorder Assessment & Plan (01/14/2022 [...] needed Assessment & Plan (06/09/2022 3:37 PM CHIEF COUNSEL): Reviewed [facility] PHQ Screening PHQ-2 Total Score (If total score is 3 or more points, staff should administer the PHQ-9): 0 Hearing/vision screening reviewed, referrals placed as needed Fall risk reviewed Reviewed medications and supplements Specialists: endocrine, nephrology, cardiology, neurology evidence of cognitive impairment HCM: orders placed as needed Assessment & Plan (01/08/2021 3:44 PM CDT): Reviewed [facility] & PHQ Screening PHQ-2 Total Score (If [...] UTD, colonoscopy UTD Schizoaffective disorder, bipolar type ([facility]) 10/10/2020 Assessment & Plan (03/16/2024 3:52 [...] psychiatry Assessment & Plan (07/24/2023 1:50 PM CHIEF COUNSEL): Following with psychiatry Assessment & Plan (01/23/2023 [...] discussed. Assessment & Plan (08/09/2021 5:42 AM CHIEF COUNSEL): Following with psychiatry Assessment & Plan (08/07/2021 3:28 PM CHIEF COUNSEL): Chronic condition, switch to Haldol and has had multiple different problems including acute kidney failure in infectious process. Records not available at outside [facility]. Confounded by delirium. Currently experiencing delirium will discontinue Haldol and return to Risperdal as previously taking. Risperdal was discontinued due to poorly-controlled diabetes. Monitor in 1 to 2 weeks. Assessment & Plan (07/03/2021 7:24 AM CHIEF COUNSEL): Following with psychiatry D/c risperidone, started on haldol Assessment & Plan (07/01/2021 9:16 PM CHIEF COUNSEL): Chronic, stable. +persistent auditory hallucinations Discontinue Risperdal [...] Reviewed all of those notes-primary care doctor, die stamper, specialist physicians. The patient previously lived on her own and was observed to be hoarding. See additional problems-dementia. Evaluate again in 1 month after starting Risperdal. Mixed hyperlipidemia 04/03/2020 Assessment & Plan (11/10/2023 4:37 PM CDT): Continue statin Assessment & Plan (07/24/2023 1:49 PM CHIEF COUNSEL): Continue statin Assessment & Plan (01/23/2023 9:18 AM CDT): Continue statin Assessment & Plan (10/10/2022 10:47 AM CDT): Continue statin Assessment & Plan (08/14/2022 10:43 AM CHIEF COUNSEL): Continue statin Assessment & Plan (06/09/2022 3:33 PM CHIEF COUNSEL): Continue statin & 81mg ASA Assessment & [...] statin Assessment & Plan (08/05/2021 10:36 AM CHIEF COUNSEL): Continue 40mg atorvastatin Assessment & Plan (10/02/2020 4:34 PM CDT): Uncontrolled, cardiology increased atorvastatin to 40mg, advised to take two 20mg tablets until runs out Assessment & Plan (08/28/2020 12:12 PM CHIEF COUNSEL): On atorvastatin Assessment & Plan (07/24/2020 2:06 PM CHIEF COUNSEL): Stressed importance of taking atorvastatin Assessment & Plan (04/30/2020 1:00 PM CHIEF COUNSEL): On atorvastatin 20mg Iron deficiency anemia 04/02/2020 Assessment & Plan (05/06/2024 7:51 AM CHIEF COUNSEL): Recommend discussing IV iron with nephrology Assessment & Plan (10/02/2020 4:35 PM CDT): Continue iron Assessment & Plan (05/28/2020 1:51 PM CHIEF COUNSEL): Iron levels recently normalized, but still anemic, repeat today Assessment & Plan (04/16/2020 11:45 AM CDT): Recent iron within normal limits, H/H improving, continue supplementation until normalized Gastroesophageal reflux disease without esophagi tis 04/02/2020 Assessment & Plan (01/05/2024 10:40 PM CDT): -continue famotidine Assessment & Plan (10/02/2020 4:35 PM CDT): Continue omeprazole Assessment & Plan (07/24/2020 2:06 PM CHIEF COUNSEL): Recurrent symptoms off omeprazole, restart Assessment & Plan (05/28/2020 1:51 PM CHIEF COUNSEL): Iron levels recently normalized, but still anemic, repeat today Assessment & Plan (04/02/2020 1:26 PM CDT): Start PPI History of amputation of toe (CMS/HCC) 0 Assessment & Plan (01/08/2021 3:50 PM CDT): Stable Assessment & Plan (10/02/2020 4:35 PM CDT): Stable Assessment & Plan (04/30/2020 1:00 PM CHIEF COUNSEL): Stable Assessment & Plan (02/14/2020 5:15 PM CDT): Healing well Following with surgeon/wound clinic Assessment & Plan (01/19/2020 5:17 PM CDT): Has home health Following with vascular Primary hypertension 12/13/2019 Assessment & Plan (05/06/2024 7:48 AM CHIEF COUNSEL): BP controlled Continue nifedipine, hold prior to [...] x1 with HD. Most recent admission at [facility] with initiation of hydralazine and nifedipine in [...] amlodipine Assessment & Plan (08/03/2023 4:02 PM CHIEF COUNSEL): BP uncontrolled Start 5mg amlodipine Assessment & Plan (07/24/2023 1:49 PM CHIEF COUNSEL): Blood pressure borderline today off medications Assessment & Plan (01/23/2023 9:18 AM CDT): Blood pressure borderline low today, asymptomatic Checking labs Advised to decrease amlodipine to 5mg and monitor blood pressure Assessment & Plan (10/10/2022 10:50 AM CDT): Continue coreg 6.25mg twice a day & 40mg valsartan Assessment & Plan (08/14/2022 10:43 AM CHIEF COUNSEL): Blood pressure at goal, continue coreg 6.25mg twice a day Assessment & Plan (06/09/2022 3:32 PM CHIEF COUNSEL): Blood pressure at goal, continue coreg 3.125mg [...] day Assessment & Plan (08/05/2021 10:35 AM CHIEF COUNSEL): Blood pressure at goal Increase amlodipine to 10mg & d/c hydralazine per cardiology Assessment & Plan (05/28/2021 4:59 PM CHIEF COUNSEL): Blood pressure above goal, but previously within [...] lisinopril Assessment & Plan (08/28/2020 12:12 PM CHIEF COUNSEL): Blood pressure at goal Continue lisinopril Assessment & Plan (07/24/2020 2:05 PM CHIEF COUNSEL): Blood pressure at goal Continue lisinopril Assessment & Plan (05/28/2020 1:50 PM CHIEF COUNSEL): BP borderline Continue 10mg lisinopril Continue to monitor Assessment & Plan (04/30/2020 12:32 PM CHIEF COUNSEL): BP borderline Continue 10mg lisinopril Continue to [...] +SSI Assessment & Plan (07/24/2023 1:49 PM CHIEF COUNSEL): Lab Results Component Value Date HGBA1C 8.1 [...] trulicity Assessment & Plan (08/14/2022 10:42 AM CHIEF COUNSEL): Following with endocrine Continue lantus, 12 units humalog TIDAC & 1.5mg trulicity Assessment & Plan (06/09/2022 3:32 PM CHIEF COUNSEL): Following with endocrine Home blood sugar at [...] for strict med oversight by family at MD reviewed with daughter this admit. Assessment & [...] for strict med oversight by family at MD reviewed with daughter this admit. Assessment & [...] and nephropathy. Med oversight by family at MD. Assessment & Plan (09/14/2021 12:22 PM CDT): [...] as she had discussed this with outpatient senior software qa engineer - repeat A1c - resume home statin, not currently on feliciano due to kidney function Assessment & Plan (08/05/2021 10:35 AM CHIEF COUNSEL): Continue 15 units lantus twice a day Assessment & Plan (07/03/2021 7:24 AM CHIEF COUNSEL): Fasting blood sugar significantly improved Risperidone changed Continue current meds Continue to monitor Assessment & Plan (06/18/2021 11:22 AM CHIEF COUNSEL): Increase lantus to 60 units nightly, if blood sugar still above goal after 1 week split into 33 units twice a day Follow up with blood sugar via portal in 2 weeks Continue jardiance 25mg Continue trulicity 4.5mg weekly Assessment & Plan (05/28/2021 4:58 PM CHIEF COUNSEL): Increase lantus to 55 units nightly Continue [...] weekly Assessment & Plan (08/28/2020 1:00 PM CHIEF COUNSEL): DM Care Plan: Meds: Lantus - continue [...] recheck Assessment & Plan (07/24/2020 2:05 PM CHIEF COUNSEL): Formulary change /2 insurance, switched to trulicity. Will increase to 1.5mg Assessment & Plan (05/28/2020 1:50 PM CHIEF COUNSEL): Check a1c Barbara isn't checking blood sugar regularly, but when she is she has several >200 so I lean towards increasing if a1c>7 Assessment & Plan (04/30/2020 12:31 PM CHIEF COUNSEL): Blood sugar improved on 40 units basaglar [...] 1 week for reassessment Wheezing Renal disorder Immunizations Name Administration Dates Next Due Heplisav-b (Hepatitis B) 03/10/2024,12/20,12/10/2023,11/04 Influenza Nasal, Unspecified 04/17/2017 Influenza, Quadrivalent, Hig h Dose, Preservative Free, Intrr 08/07/2022,04/01/2022,03/07/2021,04/02 Influenza, Trivalent, Adjuva nted, Intramuscular 04/05/2024,04/06/2019 Influenza, Trivalent, IM (MDV) 04/17/2017 PPD TEST 10/22/2023 [employer] SARS-CoV-2 Monovalent Vaccination (12+ Yrs) PURPLE 06/11/2021,10/13/2020,09/22/2020 [...] materials from doctor or pharmacy Often 01/20/2024 [facility] Utilities Answer Date Recorded In the past 12 months has th e [employer], gas, oil, or water [employer] threatened to shut off services in your [...] How often do you attend chur or yarsani services? More than 4 times per year 04/20/2024 Do you belong to any clubs o r organizations such as hindu groups, unions, fraternal or athletic groups, or [...] place to sleep or slept in a prison (including now)? No 10/30/2023 Housing Stability Vital Sign Answer Fuentes e Recorded In the last 12 months, was t here a time when you were not able to pay the mortgage or rent on time? No 04/20/2024 In the past 12 months, how m any times have you moved where you were living? 0 04/20/2024 At any time in the past 12 m [facility], were you homeless or living in a prison (including now)? No 04/20/2024 Personal Safety Answer Date Recorded Have you ever been in or are you currently in a harmful physical or emotional relationship or is someone making you feel afraid or unsafe? Denies 04/19/2024 Comments No Sex and Gender Information Value Date Recorded Sex Assigned at Not on file Legal Sex Female 9:03 AM CHIEF COUNSEL Gender Identity Female 02/08/2020 6:39 PM CDT Sexual Orientation Not on file Last Filed Vital Signs Vital Sign Reading Time Taken Comments Blood Pressure 128/50 05/18/2024 9:04 AM CHIEF COUNSEL Pulse 76 05/18/2024 9:04 AM CHIEF COUNSEL Temperature 36.2 ??C (97.1 ??F) 05/02/2024 3:36 PM CS T Respiratory Rate 18 05/02/2024 3:36 PM CHIEF COUNSEL Oxygen Saturation 95% 05/18/2024 9:04 AM CHIEF COUNSEL Inhaled Oxygen Concentration - - Weight 60.8 kg (134 lb) 05/18/2024 9:04 AM CHIEF COUNSEL Height 157.5 cm (5' 2 ) 05/18/2024 9:04 AM CHIEF COUNSEL Body Mass Index 24.51 05/18/2024 9:04 AM CHIEF COUNSEL Results * Lipid panel (05/16/2024 10:14 AM CHIEF COUNSEL) Cholesterol 160 30 - 199 mg/dL Comment: [...] NILSA DIAS Blood 05/16/2024 10:1 4 AM CHIEF COUNSEL 05/16/2024 10:50 AM CHIEF COUNSEL Narrative NILSA DIAS - 05/16/2024 11:23 AM CHIEF COUNSEL These lab test should be done fasting. This means do not eat or drink for at least 12 hours prior to getting your blood drawn. Smith Gibbs MD LAB BLOOD ORDERABLES Final R esult NILSA ZARATE[facility] [id number] [facility]. [place] [address] * POCT hemoglobin A1c (05/16/2024 9:12 AM CHIEF COUNSEL) Hemoglobin A1C, POC 6.5 4.0 - 5.6 % Blood 05/16/2024 9:12 AM CHIEF COUNSEL Smith Gibbs MD POINT OF CARE TEST ORDERABLE S Final Result * XR Chest PA Lateral 2 Views (05/02/2024 5:00 PM CHIEF COUNSEL) Anatomical Region Laterality Modality Body, Chest N/A Computed Radiogr aphy 05/05/2024 9:08 PM CHIEF COUNSEL Narrative 05/05/2024 9:09 PM CHIEF COUNSEL EXAM DESCRIPTION: XR CHEST PA LATERAL 2 [...] PM T: ??05/05/2024 9:09 PM Report ID: [id number] Reading Location: [id number] Procedure Note Larry Escobar MD - 05/05/2024 [...] Larry Escobar M.D. MJ: JOHN Report ID: [id number] Reading Location: [id number] us Cherelle Corcoran MD IMG XR PROCEDURES Final Result * POCT glucose (04/23/2024 4:39 PM CDT) [facility] Signature Glucose, POC 150 70 - 199 mg/dL Comment:Testing performed by : [facility], [address] [place] [address], [place]., [address] Blood 04/23/2024 4:39 PM CDT 04/23/2024 4:39 PM CDT us Cheryl Slater MD LAB POCT ORDERABLES - DE VICE Final Result Performing Organization Address [facility] Co de Phone Number NILSA [facility] [address] [facility] [place] [address] * POCT glucose (04/23/2024 2:02 PM CDT) Pathologist [facility] Glucose, POC 184 70 - 199 mg/dL Comment:Testing performed by : [facility], [address] [place] [address], [id number] Blood 04/23/2024 2:02 PM CDT 04/23/2024 2:02 PM CDT Cheryl Slater MD LAB POCT ORDERABLES - DE VICE Final Result Performing Organization Address [facility] Phone Number [place] [id number] [facility] [place] [address] * (ABNORMAL) eGFR (04/23/2024 1:16 PM CDT) Pathologist [facility] eGFR 20(L) >=60 mL/min/1. 73 m2 Comment: [...] was last reviewed 2021. Testing performed by: [address] [address] Blood 04/23/2024 1:16 PM CDT 04/23/2024 1:21 PM CDT us Cheryl Slater MD LAB BLOOD ORDERABLES Fin al Result NILSA [address] [facility] Department [place] [address] * Differential, auto (04/23/2024 1:16 PM CDT) Neutrophil abs 5.6 1.5 - 6.5 K/cumm Comment:Testing performed by : [address] [address] Imm gran abs 0.0 0.0 - 0.1 K/cumm NILSA Comment:Testing performed by : [address] [address] Lymphocyte abs 2.1 0.8 - 3.3 K/cumm NILSA Comment:Testing performed by : [address] [address] Monocyte abs 0.6 0.2 - 0.8 K/cumm NILSA Comment:Testing performed by : [address] [address] Eosinophil abs 0.1 0.0 - 0.5 K/cumm NILSA Comment:Testing performed by : [address] [address] Basophil abs 0.0 0.0 - 0.1 K/cumm NILSA Comment:Testing performed by : [address] [address] Neutrophil pct 67.0 % NILSA Comment: Interpretive Data Percent cell count reference ranges are not reported, since discordance with absolute values may lead to misinterpretation of CBC data. Current Interpretive Data was last revised on 2017. Testing performed by: [address] [address] Imm gran pct 0.5 % [facility] Comment: Interpretive Data Percent cell count reference ranges are not reported, since discordance with absolute values may lead to misinterpretation of CBC data. Current Interpretive Data was last revised on 2017. Testing performed by: [address] [address] Lymphocyte pct 24.7 % [facility] Comment: Interpretive Data Percent cell count reference ranges are not reported, since discordance with absolute values may lead to misinterpretation of CBC data. Current Interpretive Data was last revised on 2017. Testing performed by: [address] [address] Monocyte pct 6.6 % [facility] Comment: Interpretive Data Percent cell count reference ranges are not reported, since discordance with absolute values may lead to misinterpretation of CBC data. Current Interpretive Data was last revised on 2017. Testing performed by: [address] [address] Eosinophil pct 1.0 % [facility] Comment: Interpretive Data Percent cell count reference ranges are not reported, since discordance with absolute values may lead to misinterpretation of CBC data. Current Interpretive Data was last revised on 2017. Testing performed by: [address] [address] Basophil pct 0.2 % [facility] Comment: Interpretive Data Percent cell count reference ranges are not reported, since discordance with absolute values may lead to misinterpretation of CBC data. Current Interpretive Data was last revised on 2017. Testing performed by: [address] [address] Blood 04/23/2024 1:16 PM CDT 04/23/2024 1:21 PM CDT us Cheryl Slater MD LAB BLOOD ORDERABLES Fin al Result NILSA [address] [facility] Department [place] [address] * (ABNORMAL) CBC with auto differential (04/23/2024 1:16 PM CDT) WBC 8.3 3.8 - 9.9 K/cumm Comment:Testing performed by : [address] [address] Hgb 9.5(L) 11.9 - 15.5 g/dL NILSA Comment:Testing performed by : [address] [address] Hct 28.2(L) 35.6 - 45.5 % NILSA Comment:Testing performed by : [address] [address] Plt 176 150 - 400 K/cumm NILSA Comment:Testing performed by : [address] [address] MPV 10.5 9.1 - 12.3 fL NILSA Comment:Testing performed by : [address] [address] RBC 3.10(L) 3.90 - 5.20 M/cumm NILSA Comment:Testing performed by : [address] [address] MCV 91.0 81.3 - 96.4 fL NILSA Comment:Testing performed by : [address] [address] MCH 30.6 27.1 - 33.3 pg NILSA Comment:Testing performed by : [address] [address] MCHC 33.7 32.3 - 35.7 g/dL NILSA Comment:Testing performed by : [address] [address] RDW CV 14.4 11.1 - 14.9 % NILSA Comment:Testing performed by : [address], [address] RDW SD 47.1 35.7 - 48.1 fL NILSA RODRIGES Comment:Testing performed by : [address] [address] NRBC abs 0.02(H) 0.00 - 0.01 K/cumm NILSA RODRIGES Comment:Testing performed by : [address] [address] Blood 04/23/2024 1:16 PM CDT 04/23/2024 1:21 PM CDT Cheryl Slater MD LAB BLOOD ORDERABLES Fin al Result Performing Organization Address [facility] Co de Phone Number [address] [place] [address] * (ABNORMAL) Phosphorus (04/23/2024 1:16 PM CDT) Phosphorus, pl 1.9(L) 2.3 - 4.5 mg/dL Comment:Testing performed by : [address] [address] Blood 04/23/2024 1:16 PM CDT 04/23/2024 1:21 PM CDT Cheryl Slater MD LAB BLOOD ORDERABLES Fin al Result Performing Organization Address [facility] Co de Phone Number [address] [place] [address] * (ABNORMAL) Basic metabolic panel (04/23/2024 1:16 PM CDT) Sodium 130(L) 135 - 145 mmol/L Comment:Testing performed by : [address] [address] Potassium, pl 4.4 3.3 - 4.9 mmol/L NILSA RODRIGES Comment:Testing performed by : [address] [address] Chloride 94(L) 97 - 110 mmol/L NILSA RODRIGES Comment:Testing performed by : [address] [address] CO2 25 22 - 32 mmol/L NILSA Comment:Testing performed by : [address] [address] Anion gap 11 2 - 15 mmol/L NILSA Comment:Testing performed by : [address] [address] BUN 24 6 - 25 mg/dL NILSA Comment:Testing performed by : [address] [address] Creatinine 2.50(H) 0.60 - 1.10 mg/dL NILSA Comment:Testing performed by : [address] [address] Glucose 194 70 - 199 mg/dL NILSA [...] was last revised 2022. Testing performed by: [address] [address] Calcium 8.5 8.5 - 10.3 mg/dL NILSA Comment:Testing performed by : [address] [address] Blood 04/23/2024 1:16 PM CDT 04/23/2024 1:21 PM CDT us Cheryl Slater MD LAB BLOOD ORDERABLES Fin al Result NILSA [address] [facility] Department of Laboratories [place], [place] [id number] * POCT glucose (04/23/2024 8:49 AM CDT) [facility] Glucose, POC 115 70 - 199 mg/dL Comment:Testing performed by : [address] [address] Blood 04/23/2024 8:49 AM CDT 04/23/2024 8:49 AM CDT us Cheryl Slater MD LAB POCT ORDERABLES - DE VICE Final Result Performing Organization Address [facility] Phone Number NILSA [address] [address] * POCT glucose (04/22/2024 8:40 PM CDT) Glucose, POC 174 70 - 199 mg/dL Comment:Testing performed by : [address] [address] Glucose comment 1 Use This Result NILSA RODRIGES Comment:Testing performed by : [address] [address] Glucose comment 2 RN/MD Notified NILSA Comment:Testing performed by : [address] [address] Blood 04/22/2024 8:40 PM CDT 04/22/2024 8:40 PM CDT us Cheryl Slater MD LAB POCT ORDERABLES - DE VICE Final Result Performing Organization Address [facility] de Phone Number CARLOS ENRIQUE[address] [address] * POCT glucose (04/22/2024 5:55 PM CDT) Glucose, POC 110 70 - 199 mg/dL Comment:Testing performed by : [address] [address] Blood 04/22/2024 5:55 PM CDT 04/22/2024 5:55 PM CDT Cheryl Slater MD LAB POCT ORDERABLES - DE VICE Final Result Performing Organization Address [facility] Co de Phone Number NILSA [facility] [address] [facility] [place] [address] * (ABNORMAL) POCT glucose (04/22/2024 12:15 PM CDT) Glucose, POC 226(H) 70 - 199 mg/dL Comment:Testing performed by : [address] [address] Glucose comment 1 Use This Result NILSA RODRIGES Comment:Testing performed by : [address] [address] Glucose comment 2 RN/MD Notified NILSA Comment:Testing performed by : [address] [address] Blood 04/22/2024 12:1 5 PM CDT 04/22/2024 12:15 PM CDT Cheryl Slater MD LAB POCT ORDERABLES - DE VICE Final Result Performing Organization Address [facility] Co de Phone Number [facility] [address] [facility] [place] [address] * PLATING FOREMAN Evaluate and Treat (VFSS) (04/22/2024 12:10 PM CDT) Narrative Becky Gold PLATING FOREMAN - 04/22/2024 12:10 PM CDT Becky Gold PLATING FOREMAN ? 04/22/2024 ??1:21 PM [facility] Inpatient Speech-Language Pathology Modified Barium [...] ??(DNT) Consistencies Administered: Consistencies Administered: Thin liquids, [place] thickened liquids, Honey thickened liquids, Purees, Solids [...] and required additional liquid swallow ??Puree ??Honey ??[place] ??Thin ??Solids Oral Management: slow and prolonged [...] skilled ST after evaluation on this date) PLATING FOREMAN Frequency: Discharge from this Service Next Planned Visit: ??(n/a) Discharge Recommendations: Defer at this time Barriers to Discharge: defer to medical team Discharge Summary Statement If this is the last speech therapy visit, this serves as the discharge summary. Becky Gold M.S., [facility]-PLATING FOREMAN Goals established: 04/22/24 PLATING FOREMAN Care Plan Problems/Goals ?? None Bursar Services Utilized: NO This patient was identified by name and on this visit. PLATING FOREMAN Start Time: 1145 PLATING FOREMAN Stop Time: 1210 PLATING FOREMAN Time Calculation (min): 25 min us Cheryl Slater MD PLATING FOREMAN ORDERABLES Final Re sult * [place] Modified [...] PM T: ??04/22/2024 12:36 PM Report ID: [id number] Reading Location: ??[id number] Procedure Note Jose Duvall, DO - 04/22/2024 EXAM DESCRIPTION: [place] MODIFIED [...] Jose Duvall D.O. AP: AP Report ID: [id number] Reading Location: [id number] Cheryl Slater MD IMG FLUOROSCOPY PROCEDUR ES Final Result * POCT glucose (04/22/2024 8:38 AM CDT) [facility] Glucose, POC 130 70 - 199 mg/dL Comment:Testing performed by : [facility], [address] [place] [address]., [address] Glucose comment 1 Use This Result NILSA RODRIGES Comment:Testing performed by : [facility], [address] [place] [address]., [address] Glucose comment 2 RN/MD Notified NILSA RODRIGES Comment:Testing performed by : [facility], [address] [place] [address]., [address] Blood 04/22/2024 8:38 AM CDT 04/22/2024 8:38 AM CDT us Cheryl Slater MD LAB POCT ORDERABLES - DE VICE Final Result NILSA RODRIGES [address] [facility] Department [place] [address] * (ABNORMAL) eGFR (04/22/2024 8:34 AM CDT) [facility] eGFR 9(L) >=60 mL/min/1. 73 m2 Comment: [...] was last reviewed 2021. Testing performed by: [address] [address] Blood 04/22/2024 8:34 AM CDT 04/22/2024 9:26 AM CDT us Cheryl Slater MD LAB BLOOD ORDERABLES [facility] al Result [place] [id number] [facility] Department [place] [address] * Differential, auto (04/22/2024 8:34 AM CDT) Neutrophil abs 5.8 1.5 - 6.5 K/cumm Comment:Testing performed by : [address] [address] Imm gran abs 0.0 0.0 - 0.1 K/cumm NILSA Comment:Testing performed by : [address] [address] Lymphocyte abs 2.3 0.8 - 3.3 K/cumm NILSA Comment:Testing performed by : [address] [address] Monocyte abs 0.6 0.2 - 0.8 K/cumm NILSA Comment:Testing performed by : [address] [address] Eosinophil abs 0.1 0.0 - 0.5 K/cumm NILSA Comment:Testing performed by : [address] [address] Basophil abs 0.0 0.0 - 0.1 K/cumm NILSA Comment:Testing performed by : [address] [address] Neutrophil pct 66.3 % NILSA Comment: Interpretive Data Percent cell count reference ranges are not reported, since discordance with absolute values may lead to misinterpretation of CBC data. Current Interpretive Data was last revised on 2017. Testing performed by: [address] [address] Imm gran pct 0.2 % [facility] Comment: Interpretive Data Percent cell count reference ranges are not reported, since discordance with absolute values may lead to misinterpretation of CBC data. Current Interpretive Data was last revised on 2017. Testing performed by: [address] [address] Lymphocyte pct 26.0 % [facility] Comment: Interpretive Data Percent cell count reference ranges are not reported, since discordance with absolute values may lead to misinterpretation of CBC data. Current Interpretive Data was last revised on 2017. Testing performed by: [address] [address] Monocyte pct 6.4 % [facility] Comment: Interpretive Data Percent cell count reference ranges are not reported, since discordance with absolute values may lead to misinterpretation of CBC data. Current Interpretive Data was last revised on 2017. Testing performed by: [address] [address] Eosinophil pct 0.9 % [facility] Comment: Interpretive Data Percent cell count reference ranges are not reported, since discordance with absolute values may lead to misinterpretation of CBC data. Current Interpretive Data was last revised on 2017. Testing performed by: [address] [address] Basophil pct 0.2 % [facility] Comment: Interpretive Data Percent cell count reference ranges are not reported, since discordance with absolute values may lead to misinterpretation of CBC data. Current Interpretive Data was last revised on 2017. Testing performed by: [address] [address] Blood 04/22/2024 8:34 AM CDT 04/22/2024 9:25 AM CDT us Cheryl Slater MD LAB BLOOD ORDERABLES Fin al Result NILSA [address] [facility] Department [place] [address] * (ABNORMAL) CBC with auto differential (04/22/2024 8:34 AM CDT) [facility] WBC 8.7 3.8 - 9.9 K/cumm Comment:Testing performed by : [address] [address] Hgb 10.0(L) 11.9 - 15.5 g/dL NILSA Comment:Testing performed by : [address], [address] Hct 31.0(L) 35.6 - 45.5 % NILSA Comment:Testing performed by : [address], [address] Plt 199 150 - 400 K/cumm NILSA Comment:Testing performed by : [address] [address] MPV 11.2 9.1 - 12.3 fL NILSA Comment:Testing performed by : [address], [address] RBC 3.31(L) 3.90 - 5.20 M/cumm NILSA Comment:Testing performed by : [address], [address] MCV 93.7 81.3 - 96.4 fL NILSA Comment:Testing performed by : [address] [address] MCH 30.2 27.1 - 33.3 pg NILSA Comment:Testing performed by : [address], [address] MCHC 32.3 32.3 - 35.7 g/dL NILSA Comment:Testing performed by : [address], [address] RDW CV 14.4 11.1 - 14.9 % NILSA Comment:Testing performed by : [address], [address] RDW SD 49.1(H) 35.7 - 48.1 fL NILSA Comment:Testing performed by : [address] [place]., [address] NRBC abs 0.00 0.00 - 0.01 K/cumm NILSA RODRIGES Comment:Testing performed by : [address] [address] Blood 04/22/2024 8:34 AM CDT 04/22/2024 9:25 AM CDT Cheryl Slater MD LAB BLOOD ORDERABLES Fin al Result Performing Organization Address [facility] de Phone Number [address] [place] [address] * Phosphorus (04/22/2024 8:34 AM CDT) [facility] Phosphorus, pl 3.7 2.3 - 4.5 mg/dL Comment:Testing performed by : [address] [address] Blood 04/22/2024 8:34 AM CDT 04/22/2024 9:26 AM CDT Cheryl Slater MD LAB BLOOD ORDERABLES Fin al Result Performing Organization Address [facility] de Phone Number [address] [address] * (ABNORMAL) Comprehensive metabolic panel (04/22/2024 8:34 AM CDT) [facility] Sodium 137 135 - 145 mmol/L Comment:Testing performed by : [address] [address] Potassium, pl 4.6 3.3 - 4.9 mmol/L NILSA RODRIGES Comment: Delta - Results Reviewed Testing performed by: [address] [address] Chloride 98 97 - 110 mmol/L NILSA RODRIGES Comment:Testing performed by : [address] [address] CO2 21(L) 22 - 32 mmol/L NILSA RODRIGES Comment:Testing performed by : [address] [address] Anion gap 18(H) 2 - 15 mmol/L NILSA Comment:Testing performed by : [address] [address] BUN 53(H) 6 - 25 mg/dL NILSA Comment:Testing performed by : [address] [address] Creatinine 4.70(H) 0.60 - 1.10 mg/dL NILSA Comment:Testing performed by : [address] [address] Glucose 134 70 - 199 mg/dL NILSA [...] was last revised 2022. Testing performed by: [address] [address] Calcium 9.6 8.5 - 10.3 mg/dL NILSA Comment:Testing performed by : [address] [address] Bilirubin, total 0.2 0.1 - 1.2 mg/dL NILSA Comment:Testing performed by : [address] [address] Protein, pl 7.7 6.5 - 8.5 g/dL NILSA Comment:Testing performed by : [address] [address] Albumin 3.7 3.5 - 5.0 g/dL NILSA Comment:Testing performed by : [address] [address] Alk phos 102 40 - 130 Units/L NILSA Comment:Testing performed by : [address] [place]., [address] ALT 21 7 - 45 Units/L NILSA Comment:Testing performed by : [address] [address] AST 14 10 - 45 Units/L NILSA RODRIGES Comment:Testing performed by : [address] [address] Blood 04/22/2024 8:34 AM CDT 04/22/2024 9:26 AM CDT Cheryl Slater MD LAB BLOOD ORDERABLES Fin al Result Performing Organization Address City/[facility]/ZIP Co de Phone Number NILSA [address] [place] [address] * POCT glucose (04/21/2024 8:34 PM CDT) Pathologist [facility] Glucose, POC 167 70 - 199 mg/dL Comment:Testing performed by : [address], [address] Glucose comment 1 Use This Result NILSA RODRIGES Comment:Testing performed by : [address], [address] Blood 04/21/2024 8:34 PM CDT 04/21/2024 8:34 PM CDT us Cheryl Slater MD LAB POCT ORDERABLES - DE VICE Final Result Performing Organization Address [facility] Co de Phone Number CARLOSE NRIQUE[address] [place] [address] * (ABNORMAL) Hemoglobin and hematocrit (04/21/2024 7:24 PM CDT) Hgb 10.1(L) 11.9 - 15.5 g/dL Comment:Testing performed by : [address] [address] Hct 30.6(L) 35.6 - 45.5 % NILSA RODRIGES Comment:Testing performed by : [address] [address] Blood 04/21/2024 7:24 PM CDT 04/21/2024 7:28 PM CDT Cheryl Slater MD LAB BLOOD ORDERABLES Fin al Result Performing Organization Address [facility] Co de Phone Number [place] [address] [place] [address] * POCT glucose (04/21/2024 5:55 PM CDT) [facility] Signature Glucose, POC 135 70 - 199 mg/dL Comment:Testing performed by : [facility], [address] [place] [address]., [address] Blood 04/21/2024 5:55 PM CDT 04/21/2024 5:55 PM CDT Cheryl Slater MD LAB POCT ORDERABLES - DE VICE Final Result Performing Organization Address [facility] Phone Number [place] [address]7570 [place] [address] * CT Head WO Contrast (04/21/2024 11:32 [...] AM T: ??04/21/2024 11:38 AM Report ID: [id number] Reading Location: ??[id number] Procedure Note Robert Fay Jr., MD - [...] Electronically signed by Robert Fay M.D. CH: Report ID: [id number] Reading Location: [place] [address] Shemar Feliz MD [facility] CT PROCEDURES Final Result * (ABNORMAL) POC Blood Gas and Chemistries, Arterial - (04/21/2024 10:46 AM CDT) [facility] Signature pH, art POC 7.49(H) 7.35 - 7.45 Comment:Testing performed by : [facility], [address] [place] [address]., [address] pCO2, art POC 38 35 - 45 mmHg NILSA Comment:Testing performed by : [address] [address] pO2, art POC 91 83 - 108 mmHg NILSA Comment:Testing performed by : [address], [place]., [address] HCO3, art (Calc) POC 29 20 - 30 mmol/L NILSA Comment:Testing performed by : [address] [address] Base excess, art POC 5 mmol/L NILSA Comment: Interpretive Data No reference range established. Current interpretive data was last revised 2020. Testing performed by: [address] [address] Blood 04/21/2024 10:4 6 AM CDT 04/21/2024 10:46 AM CDT us Cheryl Slater MD LAB POCT ORDERABLES - DE VICE Final Result Performing Organization Address City/[facility]/ZIP Co de Phone Number [facility] [address] [facility] Department [place] [address] * (ABNORMAL) Troponin T high-sensitivity (04/21/2024 10:43 AM CDT) Trop T hs 60(H) <=14 ng/L Comment: Interpretive Data For further hscTnT resources including the diagnostic algorithm and an aid in interpretation, copy and paste this link: https://nrl.testcatalog.org/show/hsTrop Current Interpretive Data last revised 2020. Testing performed by: [address] [address] Blood 04/21/2024 10:4 3 AM CDT 04/21/2024 10:47 AM CDT us Shemar Feliz MD LAB BLOOD ORDERABLES Fi nal Result NILSA [address] [facility] Department [place] [address] * Lactate (04/21/2024 10:43 AM CDT) [facility] Lactate 1.8 0.7 - 2.0 mmol/L Comment:Testing performed by : [facility], [address] [place] [address]., [address] Blood 04/21/2024 10:4 3 AM CDT 04/21/2024 10:47 AM CDT Shemar Feliz MD LAB BLOOD ORDERABLES Fi nal Result NILSA [address] [facility] Department [place] [address] * (ABNORMAL) eGFR (04/21/2024 10:43 AM CDT) [facility] eGFR 21(L) >=60 mL/min/1. 73 m2 Comment: [...] was last reviewed 2021. Testing performed by: [address] [address] Blood 04/21/2024 10:4 3 AM CDT 04/21/2024 10:47 AM CDT Cheryl Slater MD LAB BLOOD ORDERABLES Fin al Result [facility] [address] [facility] Department [place] [address] * (ABNORMAL) Differential, auto (04/21/2024 10:43 AM CDT) Neutrophil abs 8.1(H) 1.5 - 6.5 K/cumm Comment:Testing performed by : [address] [address] Imm gran abs 0.1 0.0 - 0.1 K/cumm NILSA Comment:Testing performed by : [address] [address] Lymphocyte abs 3.2 0.8 - 3.3 K/cumm NILSA Comment:Testing performed by : [address] [address] Monocyte abs 0.7 0.2 - 0.8 K/cumm NILSA Comment:Testing performed by : [address] [address] Eosinophil abs 0.1 0.0 - 0.5 K/cumm NILSA Comment:Testing performed by : [address] [address] Basophil abs 0.0 0.0 - 0.1 K/cumm NILSA Comment:Testing performed by : [address] [address] Neutrophil pct 66.1 % NILSA Comment: Interpretive Data Percent cell count reference ranges are not reported, since discordance with absolute values may lead to misinterpretation of CBC data. Current Interpretive Data was last revised on 2017. Testing performed by: [address] [address] Imm gran pct 0.6 % [facility] Comment: Interpretive Data Percent cell count reference ranges are not reported, since discordance with absolute values may lead to misinterpretation of CBC data. Current Interpretive Data was last revised on 2017. Testing performed by: [address] [address] Lymphocyte pct 26.4 % [facility] Comment: Interpretive Data Percent cell count reference ranges are not reported, since discordance with absolute values may lead to misinterpretation of CBC data. Current Interpretive Data was last revised on 2017. Testing performed by: [address] [address] Monocyte pct 5.8 % [facility] Comment: Interpretive Data Percent cell count reference ranges are not reported, since discordance with absolute values may lead to misinterpretation of CBC data. Current Interpretive Data was last revised on 2017. Testing performed by: [address] [address] Eosinophil pct 0.9 % [facility] Comment: Interpretive Data Percent cell count reference ranges are not reported, since discordance with absolute values may lead to misinterpretation of CBC data. Current Interpretive Data was last revised on 2017. Testing performed by: [address] [address] Basophil pct 0.2 % [facility] Comment: Interpretive Data Percent cell count reference ranges are not reported, since discordance with absolute values may lead to misinterpretation of CBC data. Current Interpretive Data was last revised on 2017. Testing performed by: [address] [address] Blood 04/21/2024 10:4 3 AM CDT 04/21/2024 10:47 AM CDT us Shemar Feliz MD LAB BLOOD ORDERABLES Fi nal Result NILSA [address] [facility] Department [place] [address] * (ABNORMAL) Pro B-type natriuretic [...] Heart J. 2006:27:330-337. 2. Melisa RW, Audelia AM. J. AM Yonny Cardiol: Cardiovasc Imag. 2009;2: 216- 225. Interpretive Data Last Revised Date: 2018. Testing performed by: [address] [address] Blood 04/21/2024 10:4 3 AM CDT 04/21/2024 10:47 AM CDT Shemar Feliz MD LAB BLOOD ORDERABLES Fi nal Result Performing Organization Address [facility] Co de Phone Number [address] [place] [address] * Thyroid Function [place] (04/21/2024 10:43 AM CDT) TSH 2.25 0.30 - 4.20 mcIUnit/mL Comment:Testing performed by : [address] [address] Blood 04/21/2024 10:4 3 AM CDT 04/21/2024 10:47 AM CDT Shemar Feliz MD LAB BLOOD ORDERABLES Fi nal Result Performing Organization Address [facility] de Phone Number [address] [place] [address] * (ABNORMAL) CBC with auto differential (04/21/2024 10:43 AM CDT) WBC 12.2(H) 3.8 - 9.9 K/cumm Comment:Testing performed by : [address] [address] Hgb 9.9(L) 11.9 - 15.5 g/dL NILSA Comment:Testing performed by : [address] [address] Hct 30.0(L) 35.6 - 45.5 % NILSA Comment:Testing performed by : [address] [address] Plt 204 150 - 400 K/cumm NILSA RODRIGES Comment:Testing performed by : [address] [address] MPV 10.7 9.1 - 12.3 fL NILSA Comment:Testing performed by : [address] [address] RBC 3.27(L) 3.90 - 5.20 M/cumm NILSA RODRIGES Comment:Testing performed by : [address] [address] MCV 91.7 81.3 - 96.4 fL NILSA Comment:Testing performed by : [address] [address] MCH 30.3 27.1 - 33.3 pg NILSA Comment:Testing performed by : [address] [address] MCHC 33.0 32.3 - 35.7 g/dL NILSA Comment:Testing performed by : [address], [address] RDW CV 14.4 11.1 - 14.9 % NILSA Comment:Testing performed by : [address], [address] RDW SD 48.4(H) 35.7 - 48.1 fL NILSA Comment:Testing performed by : [address] [address] NRBC abs 0.00 0.00 - 0.01 K/cumm NILSA Comment:Testing performed by : [address] [address] Blood 04/21/2024 10:4 3 AM CDT 04/21/2024 10:47 AM CDT us Shemar Feliz MD LAB BLOOD ORDERABLES Fi nal Result NILSA [address] [facility] Department of Laboratories [place], [place] [id number] * Hepatitis B Surface Antigen Blood (04/21/2024 10:43 AM CDT) HepBsAg Nonreactive Nonreactive Blood 04/21/2024 10:4 3 AM CDT 04/21/2024 12:45 PM CDT Markie Ryan MD LAB MICROBIOLOGY - GENERAL OR DERABLES Final Result Performing Organization Address [facility] de Phone Number [address] [address] * Magnesium (04/21/2024 10:43 AM CDT) Pathologist [facility] Magnesium 1.8 1.4 - 2.5 mg/dL Comment:Testing performed by : [address] [address] Blood 04/21/2024 10:4 3 AM CDT 04/21/2024 10:47 AM CDT Cheryl Slater MD LAB BLOOD ORDERABLES Fin al Result Performing Organization Address [facility] Co de Phone Number [address] [address] * (ABNORMAL) Hepatic function panel (04/21/2024 10:43 AM CDT) Pathologist [facility] Bilirubin, total 0.2 0.1 - 1.2 mg/dL Comment:Testing performed by : [address] [address] Bilirubin, direct <0.2 0.1 - 0.3 mg/dL NILSA Comment:Testing performed by : [address] [address] Protein, pl 7.6 6.5 - 8.5 g/dL NILSA Comment:Testing performed by : [address] [address] Albumin 3.9 3.5 - 5.0 g/dL NILSA Comment:Testing performed by : [address] [address] Alk phos 152(H) 40 - 130 Units/L NILSA Comment:Testing performed by : [address] [place]., [address] ALT 36 7 - 45 Units/L NILSA Comment:Testing performed by : [address] [address] AST 24 10 - 45 Units/L NILSA Comment:Testing performed by : [address], [place]., [address] Blood 04/21/2024 10:4 3 AM CDT 04/21/2024 10:47 AM CDT us Cheryl Slater MD LAB BLOOD ORDERABLES Fin al Result NILSA [facility] [address] [facility] Department [place] [address] * (ABNORMAL) Basic metabolic panel (04/21/2024 10:43 AM CDT) Sodium 138 135 - 145 mmol/L Comment:Testing performed by : [address] [address] Potassium, pl 3.5 3.3 - 4.9 mmol/L NILSA Comment:Testing performed by : [address] [address] Chloride 98 97 - 110 mmol/L NILSA Comment:Testing performed by : [address] [address] CO2 28 22 - 32 mmol/L NILSA Comment:Testing performed by : [address] [address] Anion gap 12 2 - 15 mmol/L NILSA Comment:Testing performed by : [address] [address] BUN 30(H) 6 - 25 mg/dL NILSA Comment:Testing performed by : [address] [address] Creatinine 2.40(H) 0.60 - 1.10 mg/dL NILSA Comment:Testing performed by : [address] [address] Glucose 181 70 - 199 mg/dL NILSA [...] was last revised 2022. Testing performed by: [facility], [address] [place] [address]., [address] Calcium 9.2 8.5 - 10.3 mg/dL NILSA Comment:Testing performed by : [facility], [address] [place] [address]., [address] Blood 04/21/2024 10:4 3 AM CDT 04/21/2024 10:47 AM CDT Cheryl Slater MD LAB BLOOD ORDERABLES Fin al Result [facility] [facility] Department [place] [address] * ECG 12 lead (04/21/2024 10:35 AM CDT) Pathologist [facility] Ventricular Rate EKG/Min 84 BPM [facility] Atrial Rate 84 BPM [facility] IN-Interval (MSEC) 154 ms [facility] QRS-Interval (MSEC) 68 ms [facility] QT-Interval (MSEC) 410 ms [facility] QTc 484 ms [facility] P Ponce 72 degrees [facility] R Ponce 0 degrees [facility] T Ponce 58 degrees [facility] Diagnosis Normal sinus rhythm Normal ECG When compared with ECG of 19-APR-2024 17:03, No significant change was found Confirmed by DIAMOND DUVALL M.D. ([id number]) on 04/21/2024 11:31:25 PM [facility] 04/21/2024 10:3 5 AM CDT 04/21/2024 11:31 PM CDT us Cheryl Slater MD ECG ORDERABLES Final Re sult [facility] * POCT glucose (04/21/2024 10:32 AM CDT) Glucose, POC 168 70 - 199 mg/dL Comment:Testing performed by : [facility], [address] [place] [address]., [address] Blood 04/21/2024 10:3 2 AM CDT 04/21/2024 10:32 AM CDT us Cheryl Slater MD LAB POCT ORDERABLES - DE VICE Final Result Performing Organization Address City/[facility] Co de Phone Number NILSA [facility] [facility] Department [place] [address] * (ABNORMAL) eGFR (04/21/2024 8:56 [...] was last reviewed 2021. Testing performed by: [address] [address] Blood 04/21/2024 8:56 AM CDT 04/21/2024 9:36 AM CDT us Cheryl Slater MD LAB BLOOD ORDERABLES Fin al Result NILSA [address] [facility] Department [place] [address] * Differential, auto (04/21/2024 8:56 AM CDT) Neutrophil abs 6.2 1.5 - 6.5 K/cumm Comment:Testing performed by : [address] [address] Imm gran abs 0.0 0.0 - 0.1 K/cumm NILSA Comment:Testing performed by : [address] [address] Lymphocyte abs 2.2 0.8 - 3.3 K/cumm NILSA Comment:Testing performed by : [address] [address] Monocyte abs 0.6 0.2 - 0.8 K/cumm NILSA Comment:Testing performed by : [address] [address] Eosinophil abs 0.1 0.0 - 0.5 K/cumm NILSA Comment:Testing performed by : [address] [address] Basophil abs 0.0 0.0 - 0.1 K/cumm NILSA Comment:Testing performed by : [address] [address] Neutrophil pct 67.9 % NILSA Comment: Interpretive Data Percent cell count reference ranges are not reported, since discordance with absolute values may lead to misinterpretation of CBC data. Current Interpretive Data was last revised on 2017. Testing performed by: [address] [address] Imm gran pct 0.4 % [facility] Comment: Interpretive Data Percent cell count reference ranges are not reported, since discordance with absolute values may lead to misinterpretation of CBC data. Current Interpretive Data was last revised on 2017. Testing performed by: [address] [address] Lymphocyte pct 24.5 % [facility] Comment: Interpretive Data Percent cell count reference ranges are not reported, since discordance with absolute values may lead to misinterpretation of CBC data. Current Interpretive Data was last revised on 2017. Testing performed by: [address] [address] Monocyte pct 6.0 % [facility] Comment: Interpretive Data Percent cell count reference ranges are not reported, since discordance with absolute values may lead to misinterpretation of CBC data. Current Interpretive Data was last revised on 2017. Testing performed by: [address] [address] Eosinophil pct 1.0 % [facility] Comment: Interpretive Data Percent cell count reference ranges are not reported, since discordance with absolute values may lead to misinterpretation of CBC data. Current Interpretive Data was last revised on 2017. Testing performed by: [address] [address] Basophil pct 0.2 % [facility] Comment: Interpretive Data Percent cell count reference ranges are not reported, since discordance with absolute values may lead to misinterpretation of CBC data. Current Interpretive Data was last revised on 2017. Testing performed by: [address] [address] Blood 04/21/2024 8:56 AM CDT 04/21/2024 9:36 AM CDT us Cheryl Slater MD LAB BLOOD ORDERABLES Fin al Result NILSA [address] [facility] Department [place] [address] * (ABNORMAL) CBC with auto differential (04/21/2024 8:56 AM CDT) [facility] Signature WBC 9.1 3.8 - 9.9 K/cumm Comment:Testing performed by : [address] [address] Hgb 9.3(L) 11.9 - 15.5 g/dL NILSA Comment:Testing performed by : [address] [address] Hct 27.8(L) 35.6 - 45.5 % NILSA Comment:Testing performed by : [address] [address] Plt 199 150 - 400 K/cumm NILSA Comment:Testing performed by : [address] [address] MPV 10.7 9.1 - 12.3 fL NILSA Comment:Testing performed by : [address] [address] RBC 2.98(L) 3.90 - 5.20 M/cumm NILSA Comment:Testing performed by : [address] [address] MCV 93.3 81.3 - 96.4 fL NILSA Comment:Testing performed by : [address] [address] MCH 31.2 27.1 - 33.3 pg NILSA Comment:Testing performed by : [address] [address] MCHC 33.5 32.3 - 35.7 g/dL NILSA Comment:Testing performed by : [address], [address] RDW CV 14.4 11.1 - 14.9 % NILSA Comment:Testing performed by : [address] [address] RDW SD 49.0(H) 35.7 - 48.1 fL NILSA Comment:Testing performed by : [address] [address] NRBC abs 0.00 0.00 - 0.01 K/cumm NILSA Comment:Testing performed by : [address] [address] Blood 04/21/2024 8:56 AM CDT 04/21/2024 9:36 AM CDT Cheryl Slater MD LAB BLOOD ORDERABLES Fin al Result NILSA [address] [facility] Department [place] [address] * (ABNORMAL) Comprehensive metabolic panel (04/21/2024 8:56 AM CDT) Sodium 139 135 - 145 mmol/L Comment:Testing performed by : [address] [address] Potassium, pl 5.0(H) 3.3 - 4.9 mmol/L NILSA Comment:Testing performed by : [address] [address] Chloride 101 97 - 110 mmol/L NILSA Comment:Testing performed by : [address] [address] CO2 25 22 - 32 mmol/L NILSA Comment:Testing performed by : [address] [address] Anion gap 13 2 - 15 mmol/L NILSA Comment:Testing performed by : [address] [address] BUN 65(H) 6 - 25 mg/dL NILSA Comment:Testing performed by : [address] [address] Creatinine 4.60(H) 0.60 - 1.10 mg/dL NILSA Comment:Testing performed by : [address] [address] Glucose 163 70 - 199 mg/dL NILSA [...] was last revised 2022. Testing performed by: [address] [address] Calcium 9.3 8.5 - 10.3 mg/dL NILSA Comment:Testing performed by : [address] [address] Bilirubin, total <0.2 0.1 - 1.2 mg/dL NILSA Comment:Testing performed by : [address] [address] Protein, pl 6.7 6.5 - 8.5 g/dL NILSA Comment:Testing performed by : [address] [address] Albumin 3.6 3.5 - 5.0 g/dL NILSA Comment:Testing performed by : [address] [address] Alk phos 137(H) 40 - 130 Units/L NILSA Comment:Testing performed by : [address] [address] ALT 32 7 - 45 Units/L NILSA Comment:Testing performed by : [address] [address] AST 19 10 - 45 Units/L NILSA Comment:Testing performed by : [address] [address] Blood 04/21/2024 8:56 AM CDT 04/21/2024 9:36 AM CDT us Cheryl Slater MD LAB BLOOD ORDERABLES Fin al Result NILSA [facility] [address] [place] [address] * POCT glucose (04/21/2024 7:51 AM CDT) [facility] Glucose, POC 193 70 - 199 mg/dL Comment:Testing performed by : [facility], [address] [place] [address]., [address] Glucose comment 1 Use This Result NILSA Comment:Testing performed by : [address] [address] Glucose comment 2 RN/MD Notified NILSA Comment:Testing performed by : [address] [address] Blood 04/21/2024 7:51 AM CDT 04/21/2024 7:51 AM CDT us Cheryl Slater MD LAB POCT ORDERABLES - DE VICE Final Result Performing Organization Address City/[facility] Co de Phone Number [address] [address] * (ABNORMAL) POCT glucose (04/20/2024 8:18 PM CDT) [facility] Glucose, POC 209(H) 70 - 199 mg/dL Comment:Testing performed by : [address] [address] Glucose comment 1 Use This Result NILSA Comment:Testing performed by : [address] [address] Blood 04/20/2024 8:18 PM CDT 04/20/2024 8:18 PM CDT us Cheryl Slater MD LAB POCT ORDERABLES - DE VICE Final Result Performing Organization Address City/[facility] Co de Phone Number [place] [id number] [place] [address] * (ABNORMAL) POCT glucose (04/20/2024 4:47 PM CDT) Glucose, POC 204(H) 70 - 199 mg/dL Comment:Testing performed by : [facility], [address] [place] [address], [place]., [address] Blood 04/20/2024 4:47 PM CDT 04/20/2024 4:47 PM CDT us Cheryl Slater MD LAB POCT ORDERABLES - DE VICE Final Result NILSA [address] [facility] Department [place] [address] * MRI Brain WO Contrast (04/20/2024 2:47 [...] PM T: ??04/20/2024 3:26 PM Report ID: [id number] Reading Location: ??[id number] Procedure Note Jose Duvall DO - 04/20/2024 EXAM DESCRIPTION: MRI BRAIN WO CONTRAST REASON FOR STUDY: Mental status change, unknown cause, TIA Vs. CVA,ESRD on HD, diabetic, dementia, Lewe Body Dementia ??? Mental status change, unknown cause; TIA Vs. CVA, ESRD on HD, diabetic, dementia, Lewe Body Dementia ??? TECHNIQUE: Multiplanar imaging includes non-contrasted T1, T2, FLAIR, and diffusion with ADC map sequences. Additional sequence(s) sensitive toblood products. Images stored on PACS. COMPARISON: Multiple [...] Jose Duvall D.O. AP: CLEMENTE Report ID: [id number] Reading Location: [place] [address] Cheryl Slater MD IMG MRI PROCEDURES Final Result * POCT glucose (04/20/2024 12:17 PM CDT) Glucose, POC 196 70 - 199 mg/dL Comment:Testing performed by : [facility], [address] [place] [address]., [address] Blood 04/20/2024 12:1 7 PM CDT 04/20/2024 12:17 PM CDT Cheryl Slater MD LAB POCT ORDERABLES - DE VICE Final Result [facility] Department [place] [address] * Ammonia (04/20/2024 8:53 AM CDT) Ammonia 26 <=50 mcmol/L Comment: Please note on 2023 the unit of measure changed from mcg/dL to mcmol/L. Current Interpretive Data was last revised on 2023. Testing performed by: [facility], [address] [place] [address]., [address] Blood 04/20/2024 8:53 AM CDT 04/20/2024 9:00 AM CDT Chreyl Slater MD LAB BLOOD ORDERABLES Fin al Result Performing Organization Address [facility] Co la Phone Number [address] [place] [address] * POCT glucose (04/20/2024 8:30 AM CDT) Glucose, POC 119 70 - 199 mg/dL Comment:Testing performed by : [facility], [address] [place] [address]., [address] Blood 04/20/2024 8:30 AM CDT 04/20/2024 8:30 AM CDT Cheryl Slater MD LAB POCT ORDERABLES - DE VICE Final Result Performing Organization Address [facility] Phone Number [address] [address] * (ABNORMAL) eGFR (04/20/2024 7:55 AM CDT) eGFR 15(L) >=60 mL/min/1. 73 m2 Comment: [...] was last reviewed 2021. Testing performed by: [address] [address] Blood 04/20/2024 7:55 AM CDT 04/20/2024 8:17 AM CDT Mir Dial DO LAB BLOOD OR DERABLES Final Result NILSA [address] [facility] Department of Laboratories [place], [place] [id number] * (ABNORMAL) Differential, auto (04/20/2024 7:55 AM CDT) Neutrophil abs 7.5(H) 1.5 - 6.5 K/cumm Comment:Testing performed by : [address] [address] Imm gran abs 0.0 0.0 - 0.1 K/cumm NILSA Comment:Testing performed by : [address] [address] Lymphocyte abs 2.2 0.8 - 3.3 K/cumm NILSA Comment:Testing performed by : [address] [address] Monocyte abs 0.6 0.2 - 0.8 K/cumm NILSA Comment:Testing performed by : [address] [address] Eosinophil abs 0.1 0.0 - 0.5 K/cumm NILSA Comment:Testing performed by : [address] [address] Basophil abs 0.0 0.0 - 0.1 K/cumm NILSA Comment:Testing performed by : [address] [address] Neutrophil pct 72.3 % [facility] Comment: Interpretive Data Percent cell count reference ranges are not reported, since discordance with absolute values may lead to misinterpretation of CBC data. Current Interpretive Data was last revised on 2017. Testing performed by: [address] [address] Imm gran pct 0.3 % [facility] Comment: Interpretive Data Percent cell count reference ranges are not reported, since discordance with absolute values may lead to misinterpretation of CBC data. Current Interpretive Data was last revised on 2017. Testing performed by: [address] [address] Lymphocyte pct 21.0 % [facility] Comment: Interpretive Data Percent cell count reference ranges are not reported, since discordance with absolute values may lead to misinterpretation of CBC data. Current Interpretive Data was last revised on 2017. Testing performed by: [address] [address] Monocyte pct 5.6 % [facility] Comment: Interpretive Data Percent cell count reference ranges are not reported, since discordance with absolute values may lead to misinterpretation of CBC data. Current Interpretive Data was last revised on 2017. Testing performed by: [address] [address] Eosinophil pct 0.6 % [facility] Comment: Interpretive Data Percent cell count reference ranges are not reported, since discordance with absolute values may lead to misinterpretation of CBC data. Current Interpretive Data was last revised on 2017. Testing performed by: [address] [address] Basophil pct 0.2 % [facility] Comment: Interpretive Data Percent cell count reference ranges are not reported, since discordance with absolute values may lead to misinterpretation of CBC data. Current Interpretive Data was last revised on 2017. Testing performed by: [address] [address] Blood 04/20/2024 7:55 AM CDT 04/20/2024 8:17 AM CDT Mir Dial DO LAB BLOOD OR DERABLES Final Result NILSA [address] [facility] Department [place] [address] * (ABNORMAL) CBC with auto differential (04/20/2024 7:55 AM CDT) WBC 10.3(H) 3.8 - 9.9 K/cumm Comment:Testing performed by : [address] [address] Hgb 9.7(L) 11.9 - 15.5 g/dL NILSA Comment:Testing performed by : [address] [address] Hct 29.9(L) 35.6 - 45.5 % NILSA Comment:Testing performed by : [address] [address] Plt 207 150 - 400 K/cumm NILSA Comment:Testing performed by : [address] [address] MPV 10.7 9.1 - 12.3 fL NILSA Comment:Testing performed by : [address] [address] RBC 3.20(L) 3.90 - 5.20 M/cumm NILSA Comment:Testing performed by : [address] [address] MCV 93.4 81.3 - 96.4 fL NILSA Comment:Testing performed by : [address] [address] MCH 30.3 27.1 - 33.3 pg NILSA RODRIGES Comment:Testing performed by : [address] [address] MCHC 32.4 32.3 - 35.7 g/dL NILSA RODRIGES Comment:Testing performed by : [address] [address] RDW CV 14.5 11.1 - 14.9 % NILSA Comment:Testing performed by : [address] [address] RDW SD 49.1(H) 35.7 - 48.1 fL NILSA RODRIGES Comment:Testing performed by : [address] [address] NRBC abs 0.00 0.00 - 0.01 K/cumm NILSA Comment:Testing performed by : [address] [address] Blood 04/20/2024 7:55 AM CDT 04/20/2024 8:17 AM CDT Mir Dial DO LAB BLOOD OR DERABLES Final Result NILSA [facility] Department [place] [address] * (ABNORMAL) Comprehensive metabolic panel (04/20/2024 7:55 AM CDT) Sodium 140 135 - 145 mmol/L Comment:Testing performed by : [address] [address] Potassium, pl 4.6 3.3 - 4.9 mmol/L NILSA RODRIGES Comment:Testing performed by : [address] [address] Chloride 103 97 - 110 mmol/L NILSA Comment:Testing performed by : [address] [address] CO2 25 22 - 32 mmol/L NILSA Comment:Testing performed by : [address] [address] Anion gap 12 2 - 15 mmol/L NILSA Comment:Testing performed by : [address] [address] BUN 34(H) 6 - 25 mg/dL NILSA Comment:Testing performed by : [address], [address] Creatinine 3.20(H) 0.60 - 1.10 mg/dL NILSA Comment:Testing performed by : [address] [address] Glucose 115 70 - 199 mg/dL NILSA [...] was last revised 2022. Testing performed by: [address] [address] Calcium 9.4 8.5 - 10.3 mg/dL NILSA Comment:Testing performed by : [address] [address] Bilirubin, total 0.2 0.1 - 1.2 mg/dL [facility] Comment:Testing performed by : [address] [address] Protein, pl 7.0 6.5 - 8.5 g/dL NILSA Comment:Testing performed by : [address] [address] Albumin 3.6 3.5 - 5.0 g/dL [facility] Comment:Testing performed by : [address] [address] Alk phos 106 40 - 130 Units/L NILSA Comment:Testing performed by : [address] [address] ALT 35 7 - 45 Units/L NILSA Comment:Testing performed by : [address] [address] AST 18 10 - 45 Units/L NILSA Comment:Testing performed by : [address] [address] Blood 04/20/2024 7:55 AM CDT 04/20/2024 8:17 AM CDT iMr Dial DO LAB BLOOD OR DERABLES Final Result Performing Organization Address City/[facility] Co de Phone Number NILSA [address] [facility] Department [place] [address] * Influenza A/B, RSV, and COVID-19 PCR Nasopharyngeal (04/19/2024 10:53 PM CDT) COVID-19 RNA Negative Negative Comment:Testing performed by : [address] [address] Influenza A RNA Negative Negative [facility] Comment:Testing performed by : [address] [address] Influenza B RNA Negative Negative [facility] Comment:Testing performed by : [address] [address] RSV RNA Negative Negative [facility] Comment: Interpretive data: Testing performed by [facility]. This test is performed using the [employer] Xpert Xpress CoV-2/Flu/RSV plus assay. This is a multiplex, real-time reverse transcriptase PCR assay intended for the qualitative detection of nucleic acid from SARS-CoV-2, influenza A, influenza B, and respiratory syncytial virus. This assay has been cleared by the [place] Food and Drug administration. The performance characteristics have been verified by the [facility]. ??Results must be considered in the clinical context, and a negative result does not rule out infection. Interpretive Data last revised 2023 Testing performed by: [address] [address] Nasopharyngeal 04/19/2024 10 :53 PM CDT 04/19/2024 10:59 PM CDT Narrative NILSA - 04/20/2024 12:43 AM CDT Is the Patient experiencing symptoms consistent with COVID?->Unknown Mir Dial DO LAB MICROBIOLOGY - GENERAL ORDERABLES Final Result Performing Organization Address City/[facility]/ZIP Co de Phone Number NILSA RODRIGES [address] [facility] [place] [address] * Blood culture Blood (04/19/2024 10:53 PM CDT) Report Final Report: No growth Comment:Testing performed by : [facility], [address] [facility], [place]., [address] Blood 04/19/2024 10:5 3 PM CDT 04/20/2024 3:27 AM CDT Narrative NILSA RODRIGES - 04/24/2024 7:01 AM CHIEF COUNSEL Collection->Peripheral 1. ?Blood cultures are incubated for [...] organism identification may be performed using the [employer] Gram-Positive Blood Culture Assay. This assay detects microbial DNA in positive blood culture broth via hybridization of target DNA to capture oligonucleotides on a microarray. This assay has been cleared by the [place] Food and Drug Administration and its performance characteristics have been verified by the [facility] Laboratory. 5. ?For questions about this culture, contact the Microbiology Laboratory at [phone]. Interpretive data was last revised on 2019. Mir Dial DO LAB MICROBIOLOGY - GENERAL ORDERABLES Final Result NILSA RODRIGES [address] [facility] [place] [address] * Blood culture Blood (04/19/2024 10:53 PM CDT) Report Final Report: No growth Comment:Testing performed by : [facility], [address] [facility], [place]., [address] Blood 04/19/2024 10:5 3 PM CDT 04/20/2024 3:27 AM CDT Narrative NILSA - 04/24/2024 7:01 AM CHIEF COUNSEL Collection->Peripheral 1. ?Blood cultures are incubated for [...] organism identification may be performed using the [employer] Gram-Positive Blood Culture Assay. This assay detects microbial DNA in positive blood culture broth via hybridization of target DNA to capture oligonucleotides on a microarray. This assay has been cleared by the [place] Food and Drug Administration and its performance characteristics have been verified by the [facility]. 5. ?For questions about this culture, contact the Microbiology Laboratory at [phone]. Interpretive data was last revised on 2019. us Mir Dial DO LAB MICROBIOLOGY - GENERAL ORDERABLES Final Result NLISA [address] [facility] [place] [address] * POCT glucose (04/19/2024 7:16 PM CDT) Glucose, POC 99 70 - 199 mg/dL Comment:Testing performed by : [facility], [address] [place] [address]., [address] Glucose comment 1 Use This Result NILSA RODRIGES Comment:Testing performed by : [facility], [address] [place] [address]., [address] Blood 04/19/2024 7:16 PM CDT 04/19/2024 7:16 PM CDT us Wally Linn Jr., MD LAB POCT ORDERABLES - D EVICE Final Result NILSA RODRIGES [address] [facility] Department [place] [address] * XR Chest 1 Vw [...] PM T: ??04/19/2024 7:40 PM Report ID: [id number] Reading Location: ??[id number] Procedure Note Mir Brooke MD - 04/19/2024 [...] Mir Brooke M.D. AR: KATHARINE Report ID: [id number] Reading Location: [id number] [facility] Kyle YOUNG IMG XR PROCEDURES Final Result * (ABNORMAL) Troponin T high-sensitivity 2-hour (04/19/2024 6:27 PM CDT) Trop T hs 63(H) <=14 ng/L Comment: Ref Range High Interpretive Data For further hscTnT resources including the diagnostic algorithm and an aid in interpretation, copy and paste this link: https://nrl.testcatalog.org/show/hsTrop Current Interpretive Data last revised 2020. Testing performed by: [facility], [address] [place] [address]., [address] Trop T hs delta See Comment ng/L NILSA RODRIGES Comment: Inappropriate collection time to report a delta. Testing performed by: [facility], [address] [place] [address]., [address] Trop T hs pct delta See Comment % NILSA RODRIGES Comment: Inappropriate collection time to report a delta. Testing performed by: [facility], [address] [place] [address]., [address] Trop T hs interp See Comment NILSA Comment: Inappropriate collection time to report a delta. Testing performed by: [facility], [address] [place] [address]., [address] Blood 04/19/2024 6:27 PM CDT 04/19/2024 6:32 PM CDT Rehab Kyle YOUNG LAB BLOOD ORDERABLES Final Resu lt Performing Organization Address [facility] Co de Phone Number NILSA [address] [facility] [employer] [place] [address] * Ammonia (04/19/2024 6:27 PM CDT) Ammonia 19 <=50 mcmol/L Comment: Please note on 2023 the unit of measure changed from mcg/dL to mcmol/L. Current Interpretive Data was last revised on 2023. Testing performed by: [facility], [address] [place] [address]., [address] Blood 04/19/2024 6:27 PM CDT 04/19/2024 6:32 PM CDT Rehab Kyle YOUNG LAB BLOOD ORDERABLES Final Resu lt Performing Organization Address City/[facility] Co de Phone Number NILSA [address] [place] [address] * (ABNORMAL) Urinalysis reflex to microscopic and culture Urine (04/19/2024 5:20 PM CDT) Color, ur Yellow Yellow Comment:Testing performed by : [address] [address] Clarity, ur Clear Clear NILSA Comment:Testing performed by : [address] [address] Specific gravity, ur 1.011 1.003 - 1.030 NILSA Comment:Testing performed by : [address] [address] pH, urine 7.0 NILSA Comment: Interpretive Data ? Urine pH is affected by diet, medications, systemic acid-base disturbances, and renal tubular function. ??pH may affect urinary stone formation. ??For example, urine pH below 6.0 may help reduce the tendency for calcium phosphate stones and pH greater than 6.0 may reduce the tendency for uric acid stone formation. Source: [facility] [employer] Current Interpretive Data was last revised on 2017 Testing performed by: [address] [address] Protein, ur ql 2+(A) Negative NILSA Comment:Testing performed by : [address] [address] Glucose, ur ql Trace(A) Negative NILSA Comment:Testing performed by : [address] [address] Ketones, ur Negative Negative NILSA Comment:Testing performed by : [address] [address] Bilirubin, ur Negative Negative NILSA Comment:Testing performed by : [address] [address] Blood, ur Negative Negative NILSA Comment:Testing performed by : [address] [address] Urobilinogen, ur <2.0 <2.0 mg/dL NILSA Comment:Testing performed by : [address] [address] Nitrite, ur Negative Negative NILSA Comment:Testing performed by : [address] [address] Leukocyte esterase, ur Negative Negative NILSA Comment:Testing performed by : [address] [address] UA reflex comment Reflex to microscopic UA will be performed. NILSA Comment:Testing performed by : [facility], [address] [place] [address]., [address] Urine 04/19/2024 5:20 PM CDT 04/19/2024 5:22 PM CDT Rehab Kyle YOUNG LAB MICROBIOLOGY - GENERAL ORDE RABLES Final Result Performing Organization Address [facility] Co de Phone Number NILSA [address] [facility] [place] [address] * (ABNORMAL) Urinalysis, microscopic only (04/19/2024 5:20 PM CDT) Pathologist [facility] WBC, ur 0-5 0 - 5 /HPF Comment:Testing performed by : [address] [address] RBC, ur 3-5(A) 0 - 2 /HPF NILSA Comment:Testing performed by : [facility], [address] [place] [address]., [address] Mucous, ur Present(A) NILSA Comment:Testing performed by : [address] [address] Culture Reflex Comment Reflex conditions for urine culture (WBC >10) not met. NILSA Comment:Testing performed by : [address] [address] Urine 04/19/2024 5:20 PM CDT 04/19/2024 5:22 PM CDT Rehab Kyle YOUNG LAB URINE ORDERABLES Final Resu lt Performing Organization Address [facility] Co de Phone Number NILSA [address] [facility] [place] [address] * ECG 12 lead (04/19/2024 5:03 PM CDT) Ventricular Rate EKG/Min 77 BPM [facility] Atrial Rate 77 BPM [facility] IN-Interval (MSEC) 150 ms [facility] QRS-Interval (MSEC) 74 ms [facility] QT-Interval (MSEC) 402 ms [facility] QTc 454 ms [facility] P Ponce 72 degrees [facility] R Ponce 11 degrees [facility] T Ponce 43 degrees [facility] Diagnosis Normal sinus rhythm Normal ECG When compared with ECG of 31-JAN-2024 11:06, No significant change was found Confirmed by SENG WOODS M.D. ([id number]) on 04/21/2024 9:54:07 AM [facility] 04/19/2024 5:03 PM CDT 04/21/2024 9:54 AM CDT Rehab Kyle YOUNG ECG ORDERABLES Final Result Performing Organization Address [facility] Co de Phone Number [facility] * (ABNORMAL) Troponin T high-sensitivity series (baseline, 2hr, 4hr, 6hr) (04/19/2024 4:57 PM CDT) Trop T hs 65(H) <=14 ng/L Comment: Ref Range High Interpretive Data For further hscTnT resources including the diagnostic algorithm and an aid in interpretation, copy and paste this link: https://nrl.testcatalog.org/show/hsTrop Current Interpretive Data last revised 2020. Testing performed by: [facility], [address] [place] [address]., [address] Blood 04/19/2024 4:57 PM CDT 04/19/2024 5:02 PM CDT Chris Wright MD LAB BLOOD ORDERABLES Edited Res ult - Final NILSA [address] [facility] [place] [address] * (ABNORMAL) eGFR (04/19/2024 4:57 [...] was last reviewed 2021. Testing performed by: [address] [address] Blood 04/19/2024 4:57 PM CDT 04/19/2024 5:02 PM CDT us Rehab Kyle YOUNG LAB BLOOD ORDERABLES Final Resu lt NILSA RODRIGES [address] [facility] Department [place] [address] * (ABNORMAL) Differential, auto (04/19/2024 4:57 PM CDT) Neutrophil abs 8.3(H) 1.5 - 6.5 K/cumm Comment:Testing performed by : [address] [address] Imm gran abs 0.1 0.0 - 0.1 K/cumm NILSA RODRIGES Comment:Testing performed by : [address] [address] Lymphocyte abs 2.1 0.8 - 3.3 K/cumm [facility] Comment:Testing performed by : [address] [address] Monocyte abs 0.6 0.2 - 0.8 K/cumm [facility] Comment:Testing performed by : [address] [address] Eosinophil abs 0.1 0.0 - 0.5 K/cumm [facility] Comment:Testing performed by : [address], [place]., [address] Basophil abs 0.0 0.0 - 0.1 K/cumm [facility] Comment:Testing performed by : [address] [address] Neutrophil pct 74.2 % [facility] Comment: Interpretive Data Percent cell count reference ranges are not reported, since discordance with absolute values may lead to misinterpretation of CBC data. Current Interpretive Data was last revised on 2017. Testing performed by: [address] [address] Imm gran pct 0.4 % [facility] Comment: Interpretive Data Percent cell count reference ranges are not reported, since discordance with absolute values may lead to misinterpretation of CBC data. Current Interpretive Data was last revised on 2017. Testing performed by: [address] [address] Lymphocyte pct 19.2 % [facility] Comment: Interpretive Data Percent cell count reference ranges are not reported, since discordance with absolute values may lead to misinterpretation of CBC data. Current Interpretive Data was last revised on 2017. Testing performed by: [address] [address] Monocyte pct 5.2 % [facility] Comment: Interpretive Data Percent cell count reference ranges are not reported, since discordance with absolute values may lead to misinterpretation of CBC data. Current Interpretive Data was last revised on 2017. Testing performed by: [address] [address] Eosinophil pct 0.7 % [facility] Comment: Interpretive Data Percent cell count reference ranges are not reported, since discordance with absolute values may lead to misinterpretation of CBC data. Current Interpretive Data was last revised on 2017. Testing performed by: [address] [address] Basophil pct 0.3 % NILSA RODRIGES Comment: Interpretive Data Percent cell count reference ranges are not reported, since discordance with absolute values may lead to misinterpretation of CBC data. Current Interpretive Data was last revised on 2017. Testing performed by: [address] [address] Blood 04/19/2024 4:57 PM CDT 04/19/2024 5:02 PM CDT us Rehab Kyle YOUNG LAB BLOOD ORDERABLES Final Resu lt NILSA [address] [facility] Department [place] [address] * (ABNORMAL) CBC with auto differential (04/19/2024 4:57 PM CDT) WBC 11.2(H) 3.8 - 9.9 K/cumm Comment:Testing performed by : [address] [address] Hgb 9.9(L) 11.9 - 15.5 g/dL NILSA RODRIGES Comment:Testing performed by : [address] [address] Hct 30.0(L) 35.6 - 45.5 % NILSA RODRIGES Comment:Testing performed by : [address] [address] Plt 208 150 - 400 K/cumm NILSA RODRIGES Comment:Testing performed by : [address] [address] MPV 10.9 9.1 - 12.3 fL NILSA RODRIGES Comment:Testing performed by : [address] [address] RBC 3.28(L) 3.90 - 5.20 M/cumm NILSA RODRIGES Comment:Testing performed by : [address] [address] MCV 91.5 81.3 - 96.4 fL NILSA Comment:Testing performed by : [address] [address] MCH 30.2 27.1 - 33.3 pg NILSA RODRIGES Comment:Testing performed by : [address] [address] MCHC 33.0 32.3 - 35.7 g/dL NILSA Comment:Testing performed by : [address] [address] RDW CV 14.6 11.1 - 14.9 % NILSA Comment:Testing performed by : [address] [address] RDW SD 49.1(H) 35.7 - 48.1 fL NILSA Comment:Testing performed by : [address] [address] NRBC abs 0.00 0.00 - 0.01 K/cumm NILSA Comment:Testing performed by : [address] [address] Blood (Blood, Venous) 04/19/2024 4:57 PM CDT 04/19/2024 5:02 PM CDT Narrative NILSA - 04/19/2024 5:05 PM CDT Potential Stroke Patient us Rehab Kyle YOUNG LAB BLOOD ORDERABLES Final Resu lt NILSA [address] [facility] Department of Laboratories [place], [place] [id number] * (ABNORMAL) aPTT (04/19/2024 4:57 PM CDT) aPTT 64(H) 22 - 37 sec Comment: Ref Range High Interpretive data aPTT test has not been evaluated for monitoring heparin therapy. The anti-Xa is the preferred test. Current interpretive data was last revised on 2019. Testing performed by: [address] [address] Blood (Blood, Venous) 04/19/2024 4:57 PM CDT 04/19/2024 5:02 PM CDT Narrative NILSA - 04/19/2024 5:15 PM CDT Potential stroke patient. Rehab Kyle YOUNG LAB BLOOD ORDERABLES Final Resu lt Performing Organization Address [facility] Co de Phone Number NILSA [facility] [address] [facility] [place] [address] * Protime-INR (04/19/2024 4:57 PM CDT) PT 13.5 12.0 - 14.6 sec Comment:Testing performed by : [address] [address] INR 1.0 0.9 - 1.2 NILSA Comment: Ref Range High Interpretive data Oral anticoagulant therapeutic ranges: Venous thromboembolism prophylaxis or treatment: 2.0-3.0 CARDIOLOGY Standard range: 2.0-3.0 High-intensity range: 2.5-3.5 Refer to indication-specific guidelines for appropriate target ranges for prosthetic heart valve replacement. Current interpretive data was last revised on 2019. Testing performed by: [address] [address] Blood 04/19/2024 4:57 PM CDT 04/19/2024 5:02 PM CDT Rehab Kyle YOUNG LAB BLOOD ORDERABLES Final Resu lt Performing Organization Address [facility] Co de Phone Number [facility] [address] [facility] [place] [address] * (ABNORMAL) Comprehensive metabolic panel (04/19/2024 4:57 PM CDT) Sodium 137 135 - 145 mmol/L Comment:Testing performed by : [address] [address] Potassium, pl 3.8 3.3 - 4.9 mmol/L NILSA RODRIGES Comment:Testing performed by : [address], [place]., [address] Chloride 96(L) 97 - 110 mmol/L NILSA Comment:Testing performed by : [address], [place]., [address] CO2 26 22 - 32 mmol/L NILSA Comment:Testing performed by : [address], [place]., [address] Anion gap 15 2 - 15 mmol/L NILSA Comment:Testing performed by : [address], [place]., [address] BUN 22 6 - 25 mg/dL NILSA Comment:Testing performed by : [address] [address] Creatinine 2.30(H) 0.60 - 1.10 mg/dL NILSA Comment:Testing performed by : [address] [address] Glucose 114 70 - 199 mg/dL NILSA [...] was last revised 2022. Testing performed by: [address] [address] Calcium 9.2 8.5 - 10.3 mg/dL NILSA Comment:Testing performed by : [address] [address] Bilirubin, total 0.3 0.1 - 1.2 mg/dL NILSA Comment:Testing performed by : [address] [address] Protein, pl 8.1 6.5 - 8.5 g/dL NILSA Comment:Testing performed by : [address] [place]., [address] Albumin 4.1 3.5 - 5.0 g/dL NILSA RODRIGES Comment:Testing performed by : [address] [address] Alk phos 133(H) 40 - 130 Units/L NILSA RODRIGSE Comment:Testing performed by : [address] [address] ALT 50(H) 7 - 45 Units/L NILSA Comment:Testing performed by : [address] [address] AST 33 10 - 45 Units/L NILSA Comment:Testing performed by : [address] [address] Blood (Blood, Venous) 04/19/2024 4:57 PM CDT 04/19/2024 5:02 PM CDT Narrative NILSA - 04/19/2024 5:44 PM CDT Potential Stroke Patient Rehab Kyle YOUNG LAB BLOOD ORDERABLES Final Resu lt Performing Organization Address City/[facility]/ZIP Co de Phone Number NILSA [address] [employer] [place], [place] [id number] * POCT glucose (04/19/2024 4:52 PM CDT) [facility] Signature Glucose, POC 115 70 - 199 mg/dL Comment:Testing performed by : [address] [address] Blood 04/19/2024 4:52 PM CDT 04/19/2024 4:52 PM CDT Notinfile Unknown LAB POCT ORDERABLES - DEVICE F inal Result Performing Organization Address City/[facility]/ZIP Co de Phone Number NILSA [address] [place] [address] * CT Stroke Head WO Contrast (04/19/2024 [...] PM T: ??04/19/2024 5:14 PM Report ID: [id number] Reading Location: ??[id number] Procedure Note José Miguel Sauer MD - [...] signed by José Miguel Sauer M.D. LB: JOSIAH Report ID: [id number] Reading Location: [id number] us Rehab Kyle YOUNG IMG CT PROCEDURES [...] 6:35 PM - Electronically signed by ??Tahmina Feliciano M.D. SN D: ??04/08/2024 6:35 PM T: Report ID: [id number] Reading Location: ??[id number] Procedure Note Tahmina Feliciano MD - 04/08/2024 [...] Tahmina Feliciano M.D. SN T: Report ID: [id number] Reading Location: [place] [address] us Brook Muhammad NP IMG XR PROCEDURES Final Res ult * IN INJECTION SINGLE/PARANORMAL INVESTIGATOR TRIGGER POINT 1/2 MUSCLES (04/06/2024 10:00 AM [...] Grier MD - 03/01/2024 8:49 AM CDT [facility] Patient Name: Barbara Chakraborty Procedure Date: 03/01/2024 8:49 AM Date of : 1950 Admit Type: Outpatient Age: 73 Gender: Female Attending MD: Jaya Grier M.D. Room: [facility] ROOM 06 Note Status: Finalized Procedure: [...] The scope was passed under direct vision.The [id number] colonoscope was introduced through theanus and advanced [...] On: 03/01/2024 8:49 AM Recognized by the [place] [employer] for promoting quality [...] vitamin-D. ??History of end-stage renal disease. ? Log Inspector/Model: [email or web address] A (S/N [id number]) CLINICAL INFORMATION: Current height: ??61 ??inches ? [...] Electronically signed by ??Rafaela Paulino M.D. TW: TW D: ??01/22/2024 1:02 PM T: ??01/22/2024 1:02 PM Report ID: [id number] Reading Location: ??[id number] Procedure Note Rafaela Paulino MD - 01/22/2024 EXAM DESCRIPTION: DEXA AXIAL SKELETON BONE DENSITY 1 OR MORE SITES REASON FOR STUDY: 73 y/o year old F with given history of: Post menopausal status. History of taking vitamin-D. History of end-stagerenal disease. Log Inspector/Model: [email or web address] A (S/N [id number]) CLINICAL INFORMATION: Current height: 61 inches Maximum [...] Rafaela Paulino M.D. TW: TW Report ID: [id number] Reading Location: [place] [address] Cherelle Corcoarn MD IMG DXA PROCEDURE S Final Result [...] age 40, based on guidelines of the [place] [employer] (ACR Practice Parameter for the Performance of Screening and Diagnostic Mammography) and [place] [employer]. For women [...] 19. Hep B core IgM Nonreactive Nonreactive [facility] Comment: Interpretive Data If HepB Core IgM Ab is reported as Equivocal, a new sample should be drawn in two weeks for testing. Current interpretive data was last revised on 19. Hep C Ab Nonreactive [facility] Comment: Interpretive Data Nonreactive: Antibodies to HCV [...] last revised on 2019. HepBsAg Nonreactive Nonreactive [facility] Blood 10/15/2023 6:50 AM CDT 10/15/2023 7:07 AM CDT us Jimbo Strauss MD LAB MICROBIOLOGY - GENERAL FREDDY HALEY Final Result Performing Organization Address [facility]/ZIP Co de Phone Number NILSA [address] Department [place] [address] * (ABNORMAL) Albumin Creatinine Ratio, Urine (10/10/2022 11:39 AM CDT) Albumin Ur 3,240.2 mg/L NILSA RODRIGES Comment: Interpretive Data No reference range established. Current interpretive data was last revised 2018. Testing performed by: [address] [address] Creatinine Ur 74.8 mg/dL NILSA Comment: Interpretive Data No reference range established. Current interpretive data was last revised 2018. Testing performed by: [address] [address] Albumin Creatinine Ratio, Ur 4,332(H) 1 - 29 mg/g NILSA Comment:Testing performed by : [address] [address] Urine 10/10/2022 11:3 9 AM CDT 10/10/2022 1:45 PM CDT Markie Ryan MD LAB URINE ORDERABLES Final Re sult Performing Organization Address City/[facility] Co de Phone Number NILSA [address] [facility] [place] [address] * (ABNORMAL) Diabetic Eye Exam (05/27/2022) Historical Provider HEALTH MAINTENANCE Final Result from Last 3 Months or Most Recently Relevant to Health Maintenance
--- OUTSIDE RECORDS SUMMARY | 2024-07-04 04:00 | XMS_ITS | Encounter Summary ---
Author Organization [facility] Healthcare Address [address] [place] [address] Care Team Providers Care Associate Professor Of Philosophy Name Role Phone hCerelle Corcoran MD Primary Care Pro vider Mark Queen MD Unavailable [phone] Rudolph [place] MD Unavailable [phone] Markie Ryan MD Unavailable Jimbo Strauss MD Unavailable [phone] Jaya Grier MD Unavailable Encounter Details Date Type Department Care Team (Late st Contact Info) Description 06/01/2024 Letter (Out) [facility] Primary Care [address] [place] [phone] Social History Tobacco Use Types Packs/Day Years [...] materials from doctor or pharmacy Often 01/20/2024 [facility] Utilities Answer Date Recorded In [...] often do you attend chur ch or confucianism services? More than 4 times per year 04/20/2024 Do you belong to any clubs o r organizations such as episcopal groups, unions, fraternal or athletic groups, or [...] place to sleep or slept in a half-way (including now)? No 10/30/2023 Housing Stability Vital Sign Answer Fuentes e Recorded In the last 12 months, was t here a time when you were not able to pay the mortgage or rent on time? No 04/20/2024 In the past 12 months, how m any times have you moved where you were living? 0 04/20/2024 At any time in the past 12 m [facility], were you homeless or living in a half-way (including now)? No 04/20/2024 Personal Safety Answer Date Recorded Have you ever been in or are you currently in a harmful physical or emotional relationship or is someone making you feel afraid or unsafe? Denies 04/19/2024 Comments No Sex and Gender Information Value Date Recorded Sex Assigned at Not on file Legal Sex Female 9:03 AM BOOKBINDER APPRENTICE Gender Identity Female 02/08/2020 6:39 PM CDT Sexual Orientation Not on file documented as of this encounter Plan of Treatment Upcoming Encounters Date Type Department Care Team (Latest Contact Info) Description 07/13/2024 9:00 AM BOOKBINDER APPRENTICE Hospital Encounter [facility] [address] [place] [address] Jaya Grier MD [address] [facility] [address] [place] [address] 07/13/2024 9:00 AM BOOKBINDER APPRENTICE - 07/13/2024 9:30 AM BOOKBINDER APPRENTICE Surgery [facility] [address] [place] [address] Jaya Grier MD [address] [facility] [address] [place] [address] ESOPHAGOGASTRODUODENOSCOPY Scheduled Procedures Name Priority Associated Diagnoses Date/Ti ks ESOPHAGOGASTRODUODENOSCOPY Anemia, unspecified type Gastritis without bleeding, unspecified chronicity, unspecified gastritis type 07/13/2024 9:00 AM BOOKBINDER APPRENTICE COLONOSCOPY Iron deficiency anemia due to chronic blood loss documented as of this encounter Visit Diagnoses Not on filedocumented in this encounter 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 06/26/2024 3:05 AM BOOKBINDER APPRENTICE documented as of this encounter Care Teams Associate Professor Of Philosophy Relationship Specialty Start Date End Date Cherelle Corcoran MD PCP - General Family Medicine 08/30/19 Mark Queen MD Consulting Physician Infectious Diseases 01/10/20 Rudolph Welch MD [address] [facility] [address] [place] [address] Consulting Physician Infectious Diseases 12/05/22 Markie Ryan MD [address] [facility] [address] [place] [address] Consulting Physician Nephrology 12/05/22 [place] [address] [place] [id number] [place] [address] Consulting Physician Nephrology 10/22/23 Jaya Grier MD [address] [facility] [address] [place] [address] Consulting Physician Gastroenterology 02/01/24 documented as of this encounter
--- OUTSIDE RECORDS SUMMARY | 2024-07-04 04:00 | XMS_ITS | Encounter Summary ---
Author Organization [facility] Healthcare Address [address] [place] [address] Care Team Providers Care Roller Leveler Operator Name Role Phone Cherelle Corcoran MD Primary Care Pro vider QueenMark Perez MD Unavailable [phone] Rudolph Welch MD Unavailable Markie Ryan MD Unavailable Jimob Strauss MD Unavailable [phone] Jaya Grier MD Unavailable Reason for Visit * Reason Onset Date Comments Med Refill 05/25/2024 Encounter Details Date Type Department Care Team (Late st Contact Info) Description 05/25/2024 Telephone [facility] Medical Group Behavioral Health [address] [facility] [address] [place] [phone] [place] [address] [address] Med Refill Social History Tobacco Use Types Packs/Day [...] materials from doctor or pharmacy Often 01/20/2024 [facility] Utilities Answer Date Recorded In the past 12 months has th e [employer], gas, oil, or water [employer] threatened to shut off services in your [...] week 04/20/2024 How often do you attend [facility] ch or yarsani services? More than 4 times per year 04/20/2024 Do you belong to any clubs o r organizations such as mandaen groups, unions, fraternal or athletic groups, or [...] place to sleep or slept in a halfway (including now)? No 10/30/2023 Housing Stability Vital Sign Answer Fuentes e Recorded In the last 12 months, was t here a time when you were not able to pay the mortgage or rent on time? No 04/20/2024 In the past 12 months, how m any times have you moved where you were living? 0 04/20/2024 At any time in the past 12 m [facility], were you homeless or living in a halfway (including now)? No 04/20/2024 Personal Safety Answer Date Recorded Have you ever been in or are you currently in a harmful physical or emotional relationship or is someone making you feel afraid or unsafe? Denies 04/19/2024 Comments No Sex and Gender Information Value Date Recorded Sex Assigned at Not on file Legal Sex Female 9:03 AM CUTCH CLEANER Gender Identity Female 02/08/2020 6:39 PM CDT Sexual Orientation Not on file documented as of this encounter Miscellaneous Notes * Telephone Encounter - Luz Maria Mo - 05/25/2024 2:15 PM CST Patient's daughter called on 05/25/24 requesting a refill for Risperdal. Last appointment was 03/16/24 Next appointment is 08/18/24 H CLEANER documented in this encounter Plan of Treatment Upcoming Encounters Date Type Department Care Team (Latest Contact Info) Description 07/13/2024 9:00 AM CUTCH CLEANER Hospital Encounter [facility] [address] [place] [address] Jaya Grier MD [address] [address] [address] [place] [address] 07/13/2024 9:00 AM CUTCH CLEANER - 07/13/2024 9:30 AM CUTCH CLEANER Surgery [facility] [address] [place] [address] Jaya Grier MD [address] [place] [address] ESOPHAGOGASTRODUODENOSCOPY Scheduled Procedures Name Priority Associated Diagnoses Date/Ti me ESOPHAGOGASTRODUODENOSCOPY Anemia, unspecified type Gastritis without bleeding, unspecified chronicity, unspecified gastritis type 07/13/2024 9:00 AM CUTCH CLEANER COLONOSCOPY Iron deficiency anemia due to chronic blood loss documented as of this encounter Visit Diagnoses Not on filedocumented in this encounter 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 06/26/2024 3:05 AM CUTCH CLEANER documented as of this encounter Care Teams Roller Leveler Operator Relationship Specialty Start Date End Date Cherelle Corcoran MD PCP - General Family Medicine 08/30/19 Mark Queen MD Consulting Physician Infectious Diseases 01/10/20 Rudolph Welch MD [address] [place] [address] Consulting Physician Infectious Diseases 12/05/22 Markie Ryan MD [address] [address] [address] [place] [address] Consulting Physician Nephrology 12/05/22 [place] [address] [address] Consulting Physician Nephrology 10/22/23 Jaya Grier MD [address] [address] [place] [address] Consulting Physician Gastroenterology 02/01/24 documented as of this encounter
--- OUTSIDE RECORDS SUMMARY | 2024-07-04 04:00 | XMS_ITS | Encounter Summary ---
Author Organization [facility] Healthcare Address [address] [place] [address] Care Team Providers Care Funnel Setter Name Role Phone Cherelle Corcoran MD Primary Care Pro vider Mark Queen MD Unavailable [phone] Rudolph Welch MD Unavailable [phone] Markie Ryan MD Unavailable Jimbo Strauss MD Unavailable [phone] Jaya Grier MD Unavailable Reason for Visit * Reason Onset Date Comments Medical Question/Miscellaneous 05/31/2024 Encounter Details Date Type Department Care Team ([facility] st Contact Info) Description 05/31/2024 Telephone [facility] Medical Group Primary Care at [address] [place] [address] Cherelle Corcoran MD [address] [place] [id number] Medical Question/Miscellaneous Social History Tobacco Use Types Packs/Day Years [...] from doctor or pharmacy Often 01/20/2024 [facility] Utilities Answer Date Recorded In the past 12 months has th e [employer], gas, oil, or water [employer] threatened to shut off services in your [...] often do you attend chur ch or voodoo services? More than 4 times per year 04/20/2024 Do you belong to any clubs o r organizations such as roman catholic groups, unions, fraternal or athletic groups, or [...] place to sleep or slept in a snf (including now)? No 10/30/2023 Housing Stability Vital [...] were you homeless or living in a snf (including now)? No 04/20/2024 Personal Safety Answer Date Recorded Have you ever been in or are you currently in a harmful physical or emotional relationship or is someone making you feel afraid or unsafe? Denies 04/19/2024 Comments No Sex and Gender Information Value Date Recorded Sex Assigned at Not on file Legal Sex Female 9:03 AM TRAINING AND DEVELOPMENT SPECIALIST Gender Identity Female 02/08/2020 6:39 PM CDT Sexual Orientation Not on file documented as of this encounter Miscellaneous Notes * Telephone Encounter - Cherelle Corcoran MD - 06/06/2024 5:23 PM CST Acknowledged NING AND DEVELOPMENT SPECIALIST * Telephone Encounter - Rita Posadas MA - 06/06/2024 12:19 PM CST Call Back Caller???s Concern: [facility] said they received the referral, however, patient's daughterMalena BANKS said this is not a good time to begin as patient has dialysis 4 times a week. Does message need to be routed? Yes-FYI Only NING AND DEVELOPMENT SPECIALIST * Telephone Encounter - Tigist Walter - 06/01/2024 8:36 AM CST Referral and records faxed to [facility] NING AND DEVELOPMENT SPECIALIST * Telephone Encounter - Monique Lezmaa MA - 05/31/2024 4:56 PM CST Noted NING AND DEVELOPMENT SPECIALIST * Telephone Encounter - Cherelle Corcoran MD - 05/31/2024 4:42 PM CST Changed to external. Daughter reports they are using Medicaid [place] for home health assistance. NING AND DEVELOPMENT SPECIALIST * Telephone Encounter - Monique Lezama MA - 05/31/2024 4:38 PM CST FYI NING AND DEVELOPMENT SPECIALIST * Telephone Encounter - Pavel Esteves - 05/31/2024 4:18 PM CST Medical Question/Miscellaneous Caller???s Concern: Anita with [facility], called stating they are at capacity for nursing, will not be able to see the patient. Does message need to be routed? Yes-FYI Only NING AND DEVELOPMENT SPECIALIST documented in this encounter Plan of Treatment Upcoming Encounters Date Type Department Care Team (Latest Contact Info) Description 07/13/2024 9:00 AM TRAINING AND DEVELOPMENT SPECIALIST Hospital Encounter [facility] GI Lab [address] [place] [address] Jaya Grier MD [address] [address] [place] [address] 07/13/2024 9:00 AM TRAINING AND DEVELOPMENT SPECIALIST - 07/13/2024 9:30 AM TRAINING AND DEVELOPMENT SPECIALIST Surgery [facility] GI Lab [address] [place] [address] Jaya Grier MD [address] [place] [address] ESOPHAGOGASTRODUODENOSCOPY Scheduled Procedures Name Priority Associated Diagnoses Date/Ti me ESOPHAGOGASTRODUODENOSCOPY Anemia, unspecified type Gastritis without bleeding, unspecified chronicity, unspecified gastritis type 07/13/2024 9:00 AM TRAINING AND DEVELOPMENT SPECIALIST COLONOSCOPY Iron deficiency anemia due to chronic blood loss documented as of this encounter Visit Diagnoses Not on filedocumented in this encounter 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 06/26/2024 3:05 AM TRAINING AND DEVELOPMENT SPECIALIST documented as of this encounter Care Teams Funnel Setter Relationship Specialty Start Date End Date Cherelle Corcoran MD PCP - General Family Medicine 08/30/19 Mark Queen MD Consulting Physician Infectious Diseases 01/10/20 Rudolph Welch MD [facility] [facility] [address] [place] [address] Consulting Physician Infectious Diseases 12/05/22 Markie Ryan MD [address] [address] [place] [address] Consulting Physician Nephrology 12/05/22 [place] [address] [address] Consulting Physician Nephrology 10/22/23 Jaya Grier MD [address] [address] [place] [address] Consulting Physician Gastroenterology 02/01/24 documented as of this encounter
--- OUTSIDE RECORDS SUMMARY | 2024-07-04 04:00 | XMS_ITS | Encounter Summary ---
Author Organization [facility] Healthcare Address [address] [place] [address] Care Team Providers Care Can Intake Worker Name Role Phone Cherelle Corcoran MD Primary Care Pro vider Mark Queen MD Unavailable [phone] Rudolph Welch MD Unavailable [phone] Markie Ryan MD Unavailable Jimbo Strauss MD Unavailable [phone] Jaya Grier MD Unavailable Encounter Details Date Type Department Care Team (Late st Contact Info) Description 06/17/2024 Orders Only [facility] Medical Group Gastroenterology at [address] [place] [address] Jaya Grier MD [address] [place] [address] [address] [place] [address] Anemia, unspecified type (Primary Dx); Gastritis without bleeding, unspecified chronicity, unspecified gastritis type Social History Tobacco Use Types Packs/Day Years [...] materials from doctor or pharmacy Often 01/20/2024 [facility] Utilities Answer Date Recorded In the past 12 months has th e [employer], gas, oil, or water [employer] threatened to shut off services in your [...] often do you attend chur ch or denominational services? More than 4 times per year 04/20/2024 Do you belong to any clubs o r organizations such as spiritism groups, unions, fraternal or athletic groups, or [...] place to sleep or slept in a long-term (including now)? No 10/30/2023 Housing Stability Vital Sign Answer Fuentes e Recorded In the last 12 months, was t here a time when you were not able to pay the mortgage or rent on time? No 04/20/2024 In the past 12 months, how m any times have you moved where you were living? 0 04/20/2024 At any time in the past [facility], were you homeless or living in a long-term (including now)? No 04/20/2024 Personal Safety Answer Date Recorded Have you ever been in or are you currently in a harmful physical or emotional relationship or is someone making you feel afraid or unsafe? Denies 04/19/2024 Comments No Sex and Gender Information Value Date Recorded Sex Assigned at Not on file Legal Sex Female 9:03 AM BIRTHING NURSE Gender Identity Female 02/08/2020 6:39 PM CDT Sexual Orientation Not on file documented as of this encounter Plan of Treatment Upcoming Encounters Date Type Department Care Team (Latest Contact Info) Description 07/13/2024 9:00 AM BIRTHING NURSE Hospital Encounter [facility] GI Lab [address] [place] [address] Jaya Grier MD [address] [facility] [address] [address] 07/13/2024 9:00 AM BIRTHING NURSE - 07/13/2024 9:30 AM BIRTHING NURSE Surgery [facility] GI Lab [address] [place] [address] Jaya Grier MD [address] [facility] [address] [place] [address] ESOPHAGOGASTRODUODENOSCOPY Scheduled Procedures Name Priority Associated Diagnoses Date/Ti me ESOPHAGOGASTRODUODENOSCOPY Anemia, unspecified type Gastritis without bleeding, unspecified chronicity, unspecified gastritis type 07/13/2024 9:00 AM BIRTHING NURSE COLONOSCOPY Iron deficiency anemia due to chronic blood loss documented as of this encounter Visit Diagnoses Diagnosis Anemia, unspecified type- Primary Gastritis without bleeding, unspecified chronicity, unspecified gastritis type Anemia Unspecified anemia Gastritis without bleeding Anemia, unspecified type Gastritis without bleeding, unspecified chronicity, unspecified gastritis type documented in this encounter Orders Case Request Count Last Ordered Date First Orde red Date CASE REQUEST OPERATING ROOM 1 06/17/2024 documented in this encounter 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 [address] [place] [address] Consulting Physician Infectious Diseases 12/05/22 Markie Ryan MD [address] [facility] [address] [place] [address] Consulting Physician Nephrology 12/05/22 [place] [address] [address] Consulting Physician Nephrology 10/22/23 Jaya Grier MD [address] [address] Consulting Physician Gastroenterology 02/01/24 documented as of this encounter
--- OUTSIDE RECORDS SUMMARY | 2024-07-04 04:00 | XMS_ITS | Encounter Summary ---
Author Organization [facility] Healthcare Address [address] [place] [address] Care Team Providers Care Extension Division Director Name Role Phone Cherelle Corcoran MD Primary Care Pro vider Mark Queen MD Unavailable [phone] Rudolph Welch MD Unavailable Markie Ryan MD Unavailable [phone] Dulce Vega RN Unavailable Jimbo Strauss MD Unavailable [phone] Jaya Grier MD Unavailable Reason for Visit * Reason Onset Date Comments JOY Questions 04/27/2024 Encounter Details Date Type Department Care Team ([facility] st Contact Info) Description 04/27/2024 Telephone [facility] Medical Group Primary Care at [place] [id number] [facility] [address] [place] [address] Cherelle Corcoran MD [facility] [address] [place] [address] JOY Questions Social History Tobacco Use Types Packs/Day Years [...] materials from doctor or pharmacy Often 01/20/2024 [facility] Utilities Answer Date Recorded In the [...] often do you attend chur ch or samaritan services? More than 4 times per year 04/20/2024 Do you belong to any clubs o r organizations such as rastafarian groups, unions, fraternal or athletic groups, or [...] place to sleep or slept in a custodial (including now)? No 10/30/2023 Housing Stability Vital [...] in the past 12 m [facility], were you homeless or living in a custodial (including now)? No 04/20/2024 Personal Safety Answer Date Recorded Have you ever been in or are you currently in a harmful physical or emotional relationship or is someone making you feel afraid or unsafe? Denies 04/19/2024 Comments No Sex and Gender Information Value Date Recorded Sex Assigned at Not on file Legal Sex Female 9:03 AM EVENT ATTENDANT Gender Identity Female 02/08/2020 6:39 PM CDT Sexual Orientation Not on file documented as of this encounter Miscellaneous Notes * Telephone Encounter - Sandy Mota MA - 04/28/2024 7:26 AM CST Acknowledged. T ATTENDANT * Telephone Encounter - AdyDeepti - 04/27/2024 12:25 PM CST JOY Questions (Message from [facility] Access Center-Transportation Services Representative): Has patient been discharged at time of call? Yes Date Admitted: 04/19 Date Discharged: 04/23 Facility Admitted To: [facility] Reason for Stay? 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 Tramadol, no question Do you have enough medication to get you to your follow-up appointment? yes Since being released do you feel better, the same, or worse? unknown Date of JOY Appointment: 05/02 Do you have transportation to the appointment? yes Additional Comments: NA Does message need to be routed? Yes-FYI Only T ATTENDANT documented in this encounter Plan of Treatment Upcoming Encounters Date Type Department Care Team (Latest Contact Info) Description 07/13/2024 9:00 AM EVENT ATTENDANT Hospital Encounter [facility] GI Lab [address] [place] [address] Jaya Grier MD [address] [place] [address] [address] [place] [address] 07/13/2024 9:00 AM EVENT ATTENDANT - 07/13/2024 9:30 AM EVENT ATTENDANT Surgery [facility] GI Lab [address] [place] [address] Jaya Grier MD [address] [place] [address] [address] [place] [address] ESOPHAGOGASTRODUODENOSCOPY Scheduled Procedures Name Priority Associated Diagnoses Date/Ti la ESOPHAGOGASTRODUODENOSCOPY Anemia, unspecified type Gastritis without bleeding, unspecified chronicity, unspecified gastritis type 07/13/2024 9:00 AM EVENT ATTENDANT COLONOSCOPY Iron deficiency anemia due to chronic blood loss documented as of this encounter Visit Diagnoses Not on filedocumented in this encounter 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 [address] [place] [address] Consulting Physician Infectious Diseases 12/05/22 Markie Ryan MD [address] [facility] [address] [place] [address] Consulting Physician Nephrology 12/05/22 Dulce Vega, ALIREZA [address] [place] [address] [address] [place] [address] Muffler Tender 10/07/23 05/03/24 [place] [address] [address] [facility] [address] [place] [address] Consulting Physician Nephrology 10/22/23 Jaya Grier MD [address] [facility] [address] [place] [address] Consulting Physician Gastroenterology 02/01/24 documented as of this encounter
--- OUTSIDE RECORDS SUMMARY | 2024-07-04 04:01 | XMS_ITS | Encounter Summary ---
Author Organization [facility] Healthcare Address [address] [place] [address] Care Team Providers Care Career Resource Specialist Name Role Phone Cherelle Corcoran MD Primary Care Pro vider Mark Queen MD Unavailable [phone] Rudolph Welch MD Unavailable Markie Ryan MD Unavailable Dulce Vega RN Unavailable [phone] Jimbo Strauss MD Unavailable [phone] Jaya Grier MD Unavailable Encounter Details Date Type Department Care Team (Late st Contact Info) Description 03/24/2024 Plan of Care Documentation [facility] Hand & Shoulder [address] [address] Social History Tobacco Use Types Packs/Day Years [...] doctor or pharmacy Often 01/20/2024 [facility] Utilities Answer Date Recorded In the past 12 months has th e electric, gas, oil, or water company threatened to shut off services in your home? No 02/01/2024 Social Connection and Isolat ion Panel [NHANES] Answer Date Recorded In a typical week, how many times do you talk on the phone with family, friends, or neighbors? More than three times a week 02/01/2024 How often do you get togethe r with friends or relatives? More than three times a week 02/01/2024 How often do you attend chur ch or catholic services? More than 4 times per year 02/01/2024 Do you belong to any clubs o r organizations such as mu-ism groups, unions, fraternal or athletic groups, or school groups? No 02/01/2024 How often do you attend meet ings of the clubs or organizations you belong to? Never 02/01/2024 Are you , , di vorced, , never , or living with a partner? 02/01/2024 AUDIT-C Answer Date Recorded Q1: How often [...] medical care, and heating? Not very hard 02/01/2024 PHQ-2 Answer Date Recorded PHQ-2 Total Score (If total score is 3 or more points, staff should administer the PHQ-9) 2 11/10/2023 Hunger Vital Sign Answer Date Recorded Within the past 12 months, y ou worried that your food would run out before you got the money to buy more. Never true 08/12/20 24 Within the past 12 months, t he food you bought just didn't last and you didn't have money to get more. Never true 02/01/2024 PRAPARE - Transportation Answer Date Re corded In the past 12 months, has l ack of transportation kept you from medical appointments or from getting medications? No 01/20 In the past 12 months, has l ack of transportation kept you from meetings, work, or from getting things needed for daily living? No 02/01/2024 Housing Stability Vital Sign Answer Fuentes e [...] place to sleep or slept in a usp (including now)? No 10/30/2023 Housing Stability Vital Sign Answer Fuentes e Recorded In the last 12 months, was t here a time when you were not able to pay the mortgage or rent on time? No 02/01/2024 In the past 12 months, how m any times have you moved where you were living? 0 02/01/2024 At any time in the past 12 m [facility], were you homeless or living in a usp (including now)? No 02/01/2024 Personal Safety Answer Date Recorded Have you ever been in or are you currently in a harmful physical or emotional relationship or is someone making you feel afraid or unsafe? Denies 03/01/2024 Comments No Sex and Gender Information Value Date Recorded Sex Assigned at Not on file Legal Sex Female 9:03 AM SERVICE STATION CONSOLE OPERATOR Gender Identity Female 02/08/2020 6:39 PM CDT Sexual Orientation Not on file documented as of this encounter Plan of Treatment Upcoming Encounters Date Type Department Care Team (Latest Contact Info) Description 07/13/2024 9:00 AM SERVICE STATION CONSOLE OPERATOR Hospital Encounter [facility] [address] [place] [address] Jaya Grier MD [facility] [address] [address] 07/13/2024 9:00 AM SERVICE STATION CONSOLE OPERATOR - 07/13/2024 9:30 AM SERVICE STATION CONSOLE OPERATOR Surgery [facility] [address] [place] [address] Jaya Grier MD [address] [facility] [address] [place] [address] ESOPHAGOGASTRODUODENOSCOPY Scheduled Procedures Name Priority Associated Diagnoses Date/Ti me ESOPHAGOGASTRODUODENOSCOPY Anemia, unspecified type Gastritis without bleeding, unspecified chronicity, unspecified gastritis type 07/13/2024 9:00 AM SERVICE STATION CONSOLE OPERATOR COLONOSCOPY Iron deficiency anemia due to chronic blood loss documented as of this encounter Visit Diagnoses Not on filedocumented in this encounter 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 06/26/2024 3:05 AM SERVICE STATION CONSOLE OPERATOR documented as of this encounter Care Teams Career Resource Specialist Relationship Specialty Start Date End Date Cherelle Corcoran MD PCP - General Family Medicine 08/30/19 Mark Queen MD Consulting Physician Infectious Diseases 01/10/20 Rudolph Welch MD [address] [facility] [address] [place] [address] Consulting Physician Infectious Diseases 12/05/22 Markie Ryan MD [address] [facility] [address] [place] [address] Consulting Physician Nephrology 12/05/22 Dulce Vega, ALIREZA [address] [place] [address] [address] [place] [address] Claims Administrator 10/07/23 05/03/24 [place] [address] [facility] [address] [address] Consulting Physician Nephrology 10/22/23 Jaya Grier MD [address] [facility] [address] [place] [address] Consulting Physician Gastroenterology 02/01/24 documented as of this encounter
--- OUTSIDE RECORDS SUMMARY | 2024-07-04 04:01 | XMS_ITS | Encounter Summary ---
Author Organization [facility] Healthcare Address [address] [place] [address] Care Team Providers Care Computer Operations Analyst Name Role Phone Cherelle Corcoran MD Primary Care Pro vider Mark Queen MD Unavailable [phone] Rudolph Welch MD Unavailable Markie Ryan MD Unavailable [phone] Dulce Vega RN Unavailable [phone] Jimbo Strauss MD Unavailable [phone] Jaya Grier MD Unavailable Encounter Details Date Type Department Care Team (Late st Contact Info) Description 04/19/2024 Documentation [facility] [address] [address] Lorie Castañeda, PSYCHIATRIC ASSISTANT Social History Tobacco Use Types Packs/Day Years [...] materials from doctor or pharmacy Often 01/20/2024 [facility] Utilities Answer Date Recorded In [...] any clubs o r organizations such as quaker groups, unions, fraternal or athletic groups, or [...] place to sleep or slept in a retirement (including now)? No 10/30/2023 Housing Stability Vital [...] time in the past 12 m [facility], were you homeless or living in a retirement (including now)? No 04/20/2024 Personal Safety Answer Date Recorded Have you ever been in or are you currently in a harmful physical or emotional relationship or is someone making you feel afraid or unsafe? Denies 04/19/2024 Comments No Sex and Gender Information Value Date Recorded Sex Assigned at Not on file Legal Sex Female 9:03 AM DRY HOUSE OPERATOR Gender Identity Female 02/08/2020 6:39 PM CDT Sexual Orientation Not on file documented as of this encounter Progress Notes * Lorie Castañeda PTA - 04/19/2024 11:29 AM CDT Patient showed up 25 minutes late for appointment. No Rx. documented in this encounter Plan of Treatment Upcoming Encounters Date Type Department Care Team (Latest Contact Info) Description 07/13/2024 9:00 AM DRY HOUSE OPERATOR Hospital Encounter [facility] [address] [place] [address] Jaya Grier MD [address] [facility] [address] [place] [address] 07/13/2024 9:00 AM DRY HOUSE OPERATOR - 07/13/2024 9:30 AM DRY HOUSE OPERATOR Surgery [facility] [address] [place] [address] Jaya Grier MD [address] [facility] [address] [place] [address] ESOPHAGOGASTRODUODENOSCOPY Scheduled Procedures Name Priority Associated Diagnoses Date/Ti ks ESOPHAGOGASTRODUODENOSCOPY Anemia, unspecified type Gastritis without bleeding, unspecified chronicity, unspecified gastritis type 07/13/2024 9:00 AM DRY HOUSE OPERATOR COLONOSCOPY Iron deficiency anemia due to chronic blood loss documented as of this encounter Visit Diagnoses Not on filedocumented in this encounter 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 06/26/2024 3:05 AM DRY HOUSE OPERATOR documented as of this encounter Care Teams Computer Operations Analyst Relationship Specialty Start Date End Date Cherelle Corcoran MD PCP - General Family Medicine 08/30/19 Mark Queen MD Consulting Physician Infectious Diseases 01/10/20 Rudolph Welch MD [address] [facility] [address] [place] [address] Consulting Physician Infectious Diseases 12/05/22 Markie Ryan MD [address] [facility] [address] [place] [address] Consulting Physician Nephrology 12/05/22 Dulce Vega, ALIREZA [address] [place] [address] [address] [place] [address] Electrical And Radio Aircraft Mechanic 10/07/23 05/03/24 [place] [address] [facility] [address] [place] [address] Consulting Physician Nephrology 10/22/23 Jaya Grier MD [address] [facility] [address] [place] [address] Consulting Physician Gastroenterology 02/01/24 documented as of this encounter
--- OUTSIDE RECORDS SUMMARY | 2024-07-04 04:01 | XMS_ITS | Encounter Summary ---
Author Organization [facility] Healthcare Address [address] [place] [address] Care Team Providers Care Circular Sawyer Stone Name Role Phone Cherelle Corcoran MD Primary Care Pro vider Mark Queen MD Unavailable [phone] Rudolph Welch MD Unavailable Markie Ryan MD Unavailable [phone] Dulce Vega RN Unavailable [phone] Jimbo Strauss MD Unavailable [phone] Jaya Grier MD Unavailable Reason for Referral * Consultation (Routine) - Closed Specialty Diagnoses / Procedures Referred By Contac t Referred To Contact Neurology Diagnoses Unresponsive episode Cheryl Slater MD [address] [place] [address] Phone: tel: fax: [facility] Neurology [address] [facility] [address] [place] [address] Phone: tel: fax: Referral ID Status Reason Start Date Expiration Date V isits Requested Visits Authorized [id number] Closed Specialty Services Required 04/23/2024 04/26/2024 1 1 Question Answer Please select the performing region: [facility] [[id number]] Please select the performing department: [facility] [[id number]] To provider: PONCHO HOPKINS SI [[id number]] # of visits: 2 Comments Patient had altered mental status during dialysis. Patient has dementia, schizophrenia and drug-induced Parkinson's disease. Patient discharged from hospital on 04/23/2024. Our neurologist thinks it could be due to adverse effect of medicine and also due to dialysis disequilibrium causing mental status change. Now patient back to baseline. Reason for Visit * Reason Comments Altered Mental Status * Auth/Cert (Routine) Specialty Diagnoses / Procedures Referred By Contac t Referred To Contact Diagnoses Metabolic encephalopathy Debility Weakness Mild protein-calorie malnutrition (CMS/HCC) (HCC) Altered mental status, unspecified altered mental status type Procedures na Referral ID Status Reason Start Date Expiration Date Visits Re quested Visits Authorized [id number] 1 1 Encounter Details Date Type Department Care Team (Late st Contact Info) Description 04/19/2024 4:47 PM CDT - 04/23/2024 7:32 PM CDT Hospital Encounter [place] [id number] [address] [place] [id number] Chris Wright MD [facility] [facility] [place] [address] Wally Linn Jr., MD [address] [place] [address] Mir Dial, DO [address] [place] [address] Cheryl Slater MD [facility] [facility] [place] [address] Unresponsive episode (Primary Dx); Metabolic encephalopathy; Altered [...] materials from doctor or pharmacy Often 01/20/2024 [facility] Utilities Answer Date Recorded In the past 12 months has th e [employer], gas, oil, or water company threatened to [...] often do you attend chur ch or advent services? More than 4 times per year 04/20/2024 Do you belong to any clubs o r organizations such as restorationism groups, unions, fraternal or athletic groups, or [...] place to sleep or slept in a fci (including now)? No 10/30/2023 Housing Stability Vital Sign Answer Fuentes e Recorded In the last 12 months, was t here a time when you were not able to pay the mortgage or rent on time? No 04/20/2024 In the past 12 months, how m any times have you moved where you were living? 0 04/20/2024 At any time in the past 12 m [facility], were you homeless or living in a fci (including now)? No 04/20/2024 Personal Safety Answer Date Recorded Have you ever been in or are you currently in a harmful physical or emotional relationship or is someone making you feel afraid or unsafe? Denies 04/19/2024 Comments No Sex and Gender Information Value Date Recorded Sex Assigned at Not on file Legal Sex Female 9:03 AM [employer] Gender Identity Female 02/08/2020 6:39 PM CDT Sexual Orientation Not on file documented as of this encounter Last Filed Vital Signs Vital Sign Reading Time Taken Comments Blood Pressure 147/55 04/23/2024 3:49 PM CDT Pulse 72 04/23/2024 3:49 PM CDT Temperature 36.8 ??C (98.2 ??F) 04/23/2024 3:49 PM CD T Respiratory Rate 18 04/23/2024 3:49 PM CDT Oxygen Saturation 100% 04/23/2024 3:49 PM CDT Inhaled Oxygen Concentration - - Weight 65 kg (143 lb 4.8 oz) 04/20/2024 12:00 AM CDT Height 157.5 cm (5' 2 ) 04/20/2024 12:00 AM CDT Body Mass Index 26.21 04/20/2024 12:00 AM CDT documented in this encounter Discharge Summaries * Cheryl Slater MD - 04/23/2024 4:07 PM CDT Inpatient Discharge Summary BRIEF OVERVIEW Patient Name - Sixto Chakraborty Patient Age - 73 yrs Patient - [id number] [facility] - [id number] Document Creation Date: 04/23/2024 Admitting Provider, MD: Mir Dial DO Discharge Provider, : Cheryl Slater MD Primary Care Physician at Discharge: Cherelle Corcoran MD [phone] Admission Date: 04/19/2024 Discharge Date/time: 04/23/2024 Admission Location: [facility] LOS - LOS: 4 days DETAILS OF HOSPITAL STAY Hospital Problems/Diagnoses Principal Problem: Metabolic encephalopathy Active Problems: Primary hypertension Transient loss of consciousness Unresponsive episode Debility Thalamic stroke (HCC) Resolved Problems: No resolved hospital problems. Discharge diagnosis: 1. Altered mental status--due to adverse effect of medicine and dialysis disequilibrium. Resolved. 2. ESRD on HD, TTS. 3. Diabetes type 2 on insulin. 4. Alzheimer's dementia. 5. HTN. 6. Schizophrenia. 7. Pill roll tremor---due to adverse effect of antipsychotic. 8. Unresponsive episode--eyes rolling upwards--due to fluctuation of blood pressure, resolved. Reason for Hospitalization: Altered mental status Hospital Course: This is 73-year-old female with a history of schizophrenia, type 2 diabetes, end-stage kidney disease on dialysis, congestive heart failure, neurology consulted for initially for resting tremors, anddementia, and re consulted again for an episode where she was frozen with eyes rolling up during dialysis, given a bolus of fluid, and patient regained consciousness, and at the time of dialysis patient noted to be bradycardic. About resting tremors, patient has noted that she has had resting tremor but can not tell me when this started, of note patient with schizophrenia on risperidone. She denies any headaches, vision changes, numbness. MRI of the brain was obtained with no acute changes, EEG was obtained with no seizures only encephalopathy on EEG. Neurology said that there is no evidence of stroke although she had old stroke. MRI reviewed and discussed with neurologist. The blood pressure is more stable now during dialysis and she is doing well. Neurologist thinks that the change in mental status is due to the fluctuation of blood pressure and adverse effect of medicines. Now blood pressure is more stable and she is back to baseline. There is a chance that this could happen again during dialysis. Patient is back to baseline and neurologist cleared the patient for discharge to follow-up with neurology in [place] for outpatient evaluation. EEG shows no evidence of seizure. Long-term prognosis--guarded. High-risk of readmission because of continued dialysis and continued antipsychotic therapy which isneeded. Active Issues & Recommended Plan for Follow-up: Please see special instructions below. Time Spent in Discharge Process: I have spent 38 minutes on discharge planning activities. Time spent was on Coordination of care Test Results Pending at Discharge: Pending Labs Order Current Status Basic metabolic panel In process Hepatic function panel In process Magnesium In process Phosphorus In process Blood culture Blood Preliminary result Blood culture Blood Preliminary result Operative Procedures Performed: Other Procedures: FL Modified Barium Swallow W Video Result Date: 04/22/2024 EXAM DESCRIPTION: FL MODIFIED BARIUM SWALLOW EVALUATION WITH SPEECH THERAPIST REASON FOR STUDY: DIFFICULTY SWALLOWING RADIATION DOSE: Dose: 360.74 uGym2 Dose Area Product (DAP) TECHNIQUE: Fluoroscopic assistance provided to Speech Pathology Department who performed the exam. The patient was broughtinto the fluoro room and placed upright on a modified barium swallow chair. The patient was then given multiple consistencies mixed with barium to swallow under live fluoroscopic video guidance. COMPARISON: None available. FINDINGS: Puree, honey, nectar, thin and regular solid consistencies were orally administered during lateral fluoroscopy monitoring. There is penetration with thin liquid consis tency. A barium pill was also administered. IMPRESSION: Penetration with thin liquid consistency. Please correlate with Speech Pathology report. THIS IS AN ELECTRONICALLY VERIFIED FINAL REPORT 04/22/2024 12:36 PM - Electronically signed by Jose Duvall D.O. AP: AP Report ID: [id number] Reading Location: [id number] CT Head WO Contrast Result Date: 04/21/2024 EXAM DESCRIPTION: CT HEAD WO CONTRAST REASON FOR STUDY: Acute altered mental status. Rapid called on this patient. TECHNIQUE: Axial images acquired through the brain without intravenous contrast. Images stored on PACS. Automated exposure control was used as a dose optimization technique for this examination. COMPARISON: 04/19/2024. Brain MRI 04/20/2024. FINDINGS: BRAIN: No acute intraparenchymal hemorrhage, cerebral edema, hydrocephalus, mass, or mass effect. EXTRA-AXIAL SPACES: No extra-axial fluid collection or mass. CALVARIUM: No acute skull base or calvarial abnormality. Hyperostosis frontalis is noted. SINUSES/MASTOIDS: Predominantly clear. ORBITS: No significant abnormality. OTHER: Noother significant abnormality. IMPRESSION: No evidence of an acute intracranial abnormality. THIS IS AN ELECTRONICALLY VERIFIED FINAL REPORT 04/21/2024 11:38 AM - Electronically signed by Robert Fay M.D. CH: KECIA Report ID: [id number] Reading Location: [id number] MRI Brain WO Contrast Result Date: 04/20/2024 EXAM DESCRIPTION: MRI BRAIN WO CONTRAST REASON FOR STUDY: Mental status change, unknown cause, TIA Vs. CVA, ESRD on HD, diabetic, dementia, Lewe Body Dementia ??? Mental status change, unknown cause;TIA Vs. CVA, ESRD on HD, diabetic, dementia, Lewe Body Dementia ??? TECHNIQUE: Multiplanar imaging includes non- contrasted T1, T2, FLAIR, and diffusion with ADC map sequences. Additional sequence(s) sensitive to blood products. Images stored on PACS. COMPARISON: Multiple previous CT head examinations with the most recent dated 04/19/2024. MRI brain dated 10/30/2023. FINDINGS: No diffusion restriction to suggest acute/recent infarction. There is no definite parenchymal susceptibility signal to indicate blood degradation products within the confines of the motion limited GRE sequence. There is mild diffuse parenchymal volume loss. No hydrocephalus. The basilar cisterns are maintained. The right thalamic chronic lacunar infarction is new when compared to the previous MRI brain dated 10/30/2023. Additional small chronic infarctions in the bilateral morris radiata, basal ganglia and left thalamus as seen previously. Elsewhere the subcortical and periventricular white matter T2/FLAIR hyperintense signal in the bilateral cerebral hemispheres is nonspecific but compatible with chronic microvascular ischemic type change in a patient of this age. More pronounced T2/FLAIR hyperintense signalin the chago is also similar and could be more severe chronic microvascular ischemic type process. Previous bilateral cataract eye surgeries. The imaged paranasal sinuses are predominantly clear. Bilateral mastoid T2 hyperintense fluid signal. IMPRESSION: 1. No acute/recent infarction. 2. Right thalamic chronic lacunar infarction is new when compared to the previous MRI dated 10/30/2023. 3. Additional chronic infarctions, chronic microvascular ischemic white matter changes and other findings as above. THIS IS AN ELECTRONICALLY VERIFIED FINAL REPORT 04/20/2024 3:26 PM - Electronically signed byJose Duvall D.O. AP: AP Report ID: [id number] Reading Location: [id number] XR Chest 1 Vw Portable Result Date: 04/19/2024 EXAM DESCRIPTION: XR CHEST 1 VIEW REASON FOR STUDY: general weakness Pt presents to ED via EMS fromdialysis. Per daughter at bedside pt is able [...] AND PLEURA: No focal opacity, large effusion, or pneumothorax identified. HEART/MEDIASTINUM: Trachea midline. Cardiac silhouette normal in size. Mediastinal contours appear normal. BONES: Shoulder arthritis. CHEST WALL: Unremarkable. UPPER ABDOMEN: Unremarkable. IMPRESSION: No acute abnormality identified within limits of low inspiratory volume portable technique. Lung bases obscured. THIS IS AN ELECTRONICALLY VERIFIED FINAL REPORT 04/19/2024 7:40 PM - Electronically signed by Mir Brooke M.D. AR: KATHARINE Report ID: [id number] Reading Location: [id number] CT Stroke Head WO Contrast Result Date: 04/19/2024 EXAM DESCRIPTION: CT STROKE HEAD WO CONTRAST REASON FOR STUDY: Altered mental status during dialysis today. TECHNIQUE: Axial images acquired through the brain without intravenous contrast. Images stored on PACS. Automated exposure control was used as a dose optimization technique for this examination. COMPARISON: CT head 12/19/2023 FINDINGS: BRAIN: No hemorrhage, edema or mass effect. Mild amountof periventricular white matter hypoattenuation is nonspecific but most consistent with chronic small vessel ischemic disease. The medeiros-white matter differentiation is diffusely preserved. Basilar cisterns are patent. No hyperdense vessel. 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 EXTRA-AXIAL SPACES: No fluid collections. No masses. CALVARIUM: No fracture. SINUSES/MASTOIDS: No fluid or mucosal thickening. ORBITS: Prior bilateral lens surgery. OTHER: No other significant abnormality. IMPRESSION: No acute intracranial abnormality by CT criteria. These findings were relayed tothe referring physician by the operation support center staff at the time of dictation. THIS IS AN ELECTRONICALLY VERIFIED FINAL REPORT 04/19/2024 5:14 PM - Electronically signed by José Miguel Sauer M.D. LB: JOSIAH Report ID: [id number] Reading Location: [id number] XR Spine Cervical W Flexion And Extension 6 or More Views Result Date: 04/08/2024 EXAM DESCRIPTION: XR SPINE CERVICAL W FLEXION AND EXTENSION 6 OR MORE VIEWS REASON FOR STUDY: pain Lt sided neck pain x 1 mth, NKI TECHNIQUE: Six radiographic views of the cervical spine. COMPARISON:Plain film of the cervical spine of December 20, 2006. FINDINGS: ALIGNMENT: There is straightening of the normal cervical lordosis with decreased range of motion with flexion and extension. There is no subluxation seen with flexion or extension. VERTEBRAE: Vertebral bodies are normal in height. There ismild diffuse facet arthropathy, slightly increased from previous. The spinous processes are intact.DISCS: There is moderate disc height loss at [...] Tahmina Feliciano M.D. SN T: Report ID: [id number] Reading Location: [id number] Recent Labs: Recent Labs: Recent Labs Lab Units 04/23/24 1316 04/22/24 0834 04/21/24 19204/21/24 1043 WBC K/cumm 8.3 8.7 -- 12.2* HEMOGLOBIN g/dL 9.5* 10.0* 10.1* 9.9* HEMATOCRIT % 28.2* 31.0* 30.6* 30.0* PLATELETS K/cumm 176 199 -- 204 Recent Labs Lab Units 04/23/24 1316 04/22/24 0834 04/21/24 1924 04/21/24 1043 WBC K/cumm 8.3 8.7 -- 12.2* HEMOGLOBIN g/dL 9.5* 10.0* 10.1* 9.9* HEMATOCRIT % 28.2* 31.0* 30.6* 30.0* PLATELETS K/cumm 176 199 -- 204 NEUTROS PCT % 67.0 66.3 -- 66.1 LYMPHS PCT % 24.7 26.0 -- 26.4 MONOS PCT % 6.6 6.4 -- 5.8 EOS PCT % 1.0 0.9 -- 0.9 Recent Labs Lab Units 04/23/24 1402 04/23/24 1316 04/22/24 0838 04/22/24 0834 04/21/24 1755 04/21/24 1043 04/21/24 1032 04/21/24 0856 SODIUM mmol/L -- 130* -- 137 -- 138 -- 139 POTASSIUM PLASMA mmol/L -- 4.4 -- 4.6 -- 3.5 -- 5.0* CHLORIDE mmol/L -- 94* -- 98 -- 98 -- 101 CO2 mmol/L -- 25 -- 21* -- 28 -- 25 BUN SERUM mg/dL -- 24 -- 53* -- 30* -- 65* CREATININE mg/dL -- 2.50* -- 4.70* -- 2.40* -- 4.60* ETQ-PFN-CTIDRYD mL/min/1.73 m2 -- 20* -- 9* -- 21* -- 10* GLUCOSE mg/dL -- 194 -- 134 -- 181 -- 163 POC GLUCOSE MONITOR mg/dL 184 -- < > -- < > -- < > -- CALCIUM mg/dL -- 8.5 -- 9.6 -- 9.2 -- 9.3 ALBUMIN g/dL -- -- -- 3.7 -- 3.9 -- 3.6 PHOSPHORUS PLASMA mg/dL -- 1.9* -- 3.7 -- -- -- -- < > = values in this interval not displayed. Recent Labs Lab Units 04/23/24 1402 04/23/24 1316 04/23/24 0849 04/22/24 0838 04/22/24 0834 04/21/24 1755 04/21/24 1043 04/21/24 1032 04/21/24 0856 SODIUM mmol/L -- 130* -- -- 137 -- 138 -- 139 POTASSIUM PLASMA mmol/L -- 4.4 -- -- 4.6 -- 3.5 -- 5.0* CHLORIDE mmol/L -- 94* -- -- 98 -- 98 -- 101 CO2 mmol/L -- 25 -- -- 21* -- 28 -- 25 ANIONGAP mmol/L -- 11 -- -- 18* -- 12 -- 13 GLUCOSE mg/dL -- 194 -- -- 134 -- 181 -- 163 POC GLUCOSE MONITOR mg/dL 184 -- 115 < > -- < > -- < > -- BUN SERUM mg/dL -- 24 -- -- 53* -- 30* -- 65* CREATININE mg/dL -- 2.50* -- -- 4.70* -- 2.40* -- 4.60* CALCIUM mg/dL -- 8.5 -- -- 9.6 -- 9.2 -- 9.3 ALBUMIN g/dL -- -- -- -- 3.7 -- 3.9 -- 3.6 ALK PHOS Units/L -- -- -- -- 102 -- 152* -- 137* ALT Units/L -- -- -- -- 21 -- 36 -- 32 AST Units/L -- -- -- -- 14 -- 24 -- 19 BILIRUBIN TOTAL mg/dL -- -- -- -- 0.2 -- 0.2 -- <0.2 < > = values in this interval not displayed. Recent Labs Lab Units 04/22/24 0834 04/21/24 1043 04/21/24 0856 ALK PHOS Units/L 102 152* 137* BILIRUBIN TOTAL mg/dL 0.2 0.2 <0.2 BILIRUBIN DIRECT mg/dL -- <0.2 -- TOTAL PROTEIN g/dL 7.7 7.6 6.7 ALT Units/L 21 36 32 AST Units/L 14 24 19 Recent Labs Lab Units 04/21/24 1043 MAGNESIUM mg/dL 1.8 Recent Labs Lab Units 04/19/24 1657 PROTIME (PT) sec 13.5 INR 1.0 APTT sec 64* Lab Results Component Value Date GLUCOSE 184 04/23/2024 GLUCOSE 194 04/23/2024 GLUCOSE 115 04/23/2024 Discharge Details Physical Exam at Discharge: Discharge Condition: good Pulse: 72 Resp: 18 BP: 147/55 Temp: 36.8 ??C (98.2 ??F) Weight: 65 kg (143 lb 4.8 oz) Pertinent Exam Findings at Discharge Today patient is able to communicate with me and she is able to maintain a conversation which is baseline according to her daughter. Patient is smiling and answering all questions appropriately. However on the 1st day she was only giving one-word answers and even that very slowly. HEENT--unremarkable. Neck--no JVD neck is supple no goiter. Lungs--good air entry, no wheezing,no bronchial breath sound. CVS--S1-S2 heard no S3-S4 gallop. Abdomen--soft, no tenderness, good bowel sounds. Extremities--no calf tenderness. Skin--warm, no rash. Discharge Disposition: Discharge to home or self care Code Status at Discharge: Full Code Discharge Orders Weight Bearing Status: Precautions: Bed/Chair Alarm, Fall risk, Safety Nutritional Status and in-house recommendations: Dietary Orders (From admission, onward) Start Ordered 04/20/24 2100 Bedtime snack At bedtime Comments: If bedtime BG is less than 100mg/dl, give patient a 15 gram carbohydrate snack. 04/20/24 0003 04/20/24 0004 Adult Diet Restricted; 4 CHO/Meal; Yes, patient is receiving insulin Diet effective now Question Answer Comment (MHB/MHE) Diet type Restricted Diabetic: 4 CHO/Meal Patient receiving insulin: Yes, patient is receiving insulin 04/20/24 0003 Discharge Medications: Your medication list CHANGE how you take these medications Instructions Last Dose Given Next Dose Due benztropine 2 mg tablet Doctor's comments: Needs to re-establish with neurology for additional refills Commonly known as: COGENTIN What changed: when to take this 2 mg, oral, Daily docusate sodium 100 mg capsule Commonly known as: COLACE What changed: when to take this reasons to take this 100 mg, oral, Every 12 hours CONTINUE taking these medications Instructions Last Dose Given Next Dose Due acetaminophen 500 mg capsule 1,000 mg, oral, 3 times daily PRN aspirin 81 mg chewable tablet 81 mg, oral, Daily atorvastatin 40 mg tablet Commonly known as: LIPITOR 40 mg, oral, Nightly carvediloL 6.25 mg tablet Commonly known as: COREG 6.25 mg, oral, 2 times daily with meals (bkfst, dinner) Easy Touch 32 gauge x 5/32 needle Generic drug: pen needle, diabetic USE DIRECTED FOUR TIMES DAILY FeroSuL 325 mg (65 mg iron) tablet Generic drug: ferrous sulfate 325 mg, oral, Daily with breakfast flash glucose scanning reader [facility] Use Madhav 3 reader to scan Madhav 3 sensor fluticasone propionate 50 mcg/actuation nasal spray Commonly known as: FLONASE 2 sprays, each nostril, Daily PRN FreeStyle Madhav 2 Sensor kit Doctor's comments: Type 2 diabetic, on 2 insulin Generic drug: flash glucose sensor Use to continually monitor glucose, change every 14 days FreeStyle Madhav 3 [place] misc Generic drug: blood-glucose meter,continuous Use Madhav 3 reader to scan Madhav 3 sensor FreeStyle Madhav 3 Sensor device Generic drug: blood-glucose sensor Use for continuous glucose monitoring. Change sensor every 14 days gabapentin 100 mg capsule Commonly known as: NEURONTIN TAKE 1 CAPSULE BY MOUTH 3 TIMES PER WEEK AFTER HEMODIALYSIS hydrALAZINE 25 mg tablet Commonly known as: APRESOLINE 25 mg, oral, 2 times daily insulin glargine 100 unit/mL (3 mL) pen for injection Commonly known as: LANTUS, BASAGLAR, SEMGLEE 18 Units, subcutaneous, Nightly insulin lispro 100 unit/mL vial for injection Commonly known as: HumaLOG, ADMELOG 4 Units, subcutaneous, 3 times daily before meals, Gets 4 units at baseline then 1 unit for every 50 over 150 lidocaine 4 % adhesive patch,medicated Commonly known as: ASPERCREME 1 patch, transdermal, Daily PRN, to lower back NIFEdipine 60 mg 24 hr tablet Doctor's comments: Patient requests 90 days supply Commonly known as: PROCARDIA XL/ADALAT CC 60 mg, oral, Daily pantoprazole DR 40 mg EC tablet Doctor's comments: Patient requests 90 days supply Commonly known as: PROTONIX 40 mg, oral, 2 times daily polyethylene glycol 17 gram/dose bulk powder Commonly known as: MIRALAX 17 g, oral, Daily PRN risperiDONE 2 mg tablet Commonly known as: RisperDAL 2 mg, oral, Nightly sucralfate 1 gram tablet Commonly known as: CARAFATE 1 g, oral, 4 times daily sucroferric oxyhydroxide 500 mg tablet,chewable 0.5 tablets, oral, 3 times daily traMADoL 25 mg tablet Commonly known as: ULTRAM 25 mg, oral, Every 8 hours PRN STOP taking these medications benzonatate 100 mg capsule Commonly known as: TESSALON Outpatient Follow-Up: Future Appointments Date Time Provider Department Center 05/06/2024 9:45 AM Cherelle Corcoran MD PCP FM 210 PC 05/25/2024 2:00 PM Santo Vail MD [facility] CAR 2940 Specialty 05/27/2024 8:45 AM Demetri Bacon MD [facility] OS 340 Specialty 07/13/2024 10:00 AM Brook Muhammad NP [facility] OS 340 Specialty Contact Information for Follow-ups Poncho Hopkins Si, MD Specialty: Neurology, Clinical Neurophysiology [id number] [place] [address] DR GAINES [address] [place] [id number] Next Steps: Follow up Comments: Patient had altered mental status during dialysis. Patient has dementia, schizophrenia and drug-induced Parkinson's disease. Patient discharged from hospital on 04/23/2024. Our neurologist thinks it could be due to adverse effect of medicine and also due to dialysis disequilibrium causing mental status change. Now patient back to baseline. Questions: Please select the performing region: [facility] Please select the performing department: [facility] 250 To provider: PONCHO HOPKINS SI # of visits: 2 Referral Status: Ready for Initial Scheduling Anticoagulation Indication: Lab Results Component Value Date INR 1.0 04/19/2024 INR 0.9 01/29/2024 INR 1.05 10/15/2023 Warfarin Administrations (last 168 hours) None Oxygen Status O2 Therapy for the past 12 hrs: O2 Therapy 04/23/24 1549 None (Room air) 04/23/24 1147 None (Room air) 04/23/24 1030 None (Room air) 04/23/24 1025 None (Room air) 04/23/24 0725 None (Room air) 04/23/24 0723 None (Room air) Wound Care Instructions No Wound Therapy to show Active LDAs Patient Lines/Drains/Airways Status Active Airway None Discharge Instructions: Activity Instructions Discharge activity: Resume normal activity Diet Instructions Adult Discharge Diet Diet Type: Return to previous diet Other Instructions Special Instructions 1. Follow-up with family doctor in 1 week. 2. Blood test--CBC, BMP in 1 week at family doctor's office. 3. Continue dialysis as scheduled. 4. Follow-up with Neurology in [place] in 1 or 2 weeks. 5. Call doctor if any new symptoms. Walker Height: 157.5 cm (5' 2 ) Weight: 65 kg (143 lb 4.8 oz) Type: Adult (163-188 cm tall) Bariatric (>300#): No Wheeled walker: No Platform: No Leg extenders: No Walker basket: No Patient has mobility limitation requiring use and patient is able to use walker; and functional mobility deficit is resolved by use of walker?: Yes DME services provided by: [facility] Discharge Medications: Your medication list CHANGE how you take these medications benztropine 2 mg tablet 2 mg, oral, Daily Doctor's comments: Needs to re-establish with neurology for additional refills Commonly known as: KANCHAN What changed: when to take this docusate sodium 100 mg capsule 100 mg, oral, Every 12 hours Commonly known as: BLANCA What changed: when to take this reasons to take this CONTINUE taking these medications acetaminophen 500 mg capsule 1,000 mg, oral, 3 times daily PRN aspirin 81 mg chewable tablet 81 mg, oral, Daily atorvastatin 40 mg tablet 40 mg, oral, Nightly Commonly known as: LIPITOR carvediloL 6.25 mg tablet 6.25 mg, oral, 2 times daily with meals (bkfst, dinner) Commonly known as: COREG Easy Touch 32 gauge x 5/32 needle USE DIRECTED FOUR TIMES DAILY Generic drug: pen needle, diabetic FeroSuL 325 mg (65 mg iron) tablet 325 mg, oral, Daily with breakfast Generic drug: ferrous sulfate flash glucose scanning reader [facility] Use Madhav 3 reader to scan Madhav 3 sensor fluticasone propionate 50 mcg/actuation nasal spray 2 sprays, each nostril, Daily PRN Commonly known as: FLONASE FreeStyle Madhav 2 Sensor kit Use to continually monitor glucose, change every 14 days Doctor's comments: Type 2 diabetic, on 2 insulin Generic drug: flash glucose sensor FreeStyle Madhav 3 [place] [facility] Use Madhav 3 reader to scan Madhav 3 sensor Generic drug: blood-glucose meter,continuous FreeStyle Madhav 3 Sensor device Use for continuous glucose monitoring. Change sensor every 14 days Generic drug: blood-glucose sensor gabapentin 100 mg capsule TAKE 1 CAPSULE BY MOUTH 3 TIMES PER WEEK AFTER HEMODIALYSIS Commonly known as: NEURONTIN hydrALAZINE 25 mg tablet 25 mg, oral, 2 times daily Commonly known as: APRESOLINE insulin glargine 100 unit/mL (3 mL) pen for injection 18 Units, subcutaneous, Nightly Commonly known as: LANTUS, BASAGLAR, SEMGLEE insulin lispro 100 unit/mL vial for injection 4 Units, subcutaneous, 3 times daily before meals, Gets 4 units at baseline then 1 unit for every 50 over 150 Commonly known as: HumaLOG, ADMELOG lidocaine 4 % adhesive patch,medicated 1 patch, transdermal, Daily PRN, to lower back Commonly known as: ASPERCREME NIFEdipine 60 mg 24 hr tablet 60 mg, oral, Daily Doctor's comments: Patient requests 90 days supply Commonly known as: PROCARDIA XL/ADALAT CC pantoprazole DR 40 mg EC tablet 40 mg, oral, 2 times daily Doctor's comments: Patient requests 90 days supply Commonly known as: PROTONIX polyethylene glycol 17 gram/dose bulk powder 17 g, oral, Daily PRN Commonly known as: MIRALAX risperiDONE 2 mg tablet 2 mg, oral, Nightly Commonly known as: RisperDAL sucralfate 1 gram tablet 1 g, oral, 4 times daily Commonly known as: CARAFATE sucroferric oxyhydroxide 500 mg tablet,chewable 0.5 tablets, oral, 3 times daily traMADoL 25 mg tablet 25 mg, oral, Every 8 hours PRN Commonly known as: ULTRAM STOP taking these medications benzonatate 100 mg capsule Commonly known as: TESSALON Outpatient Follow-Up: Future Appointments Date Time Provider Department Center 05/06/2024 9:45 AM Cherelle Corcoran MD PCP FM 210 PC 05/25/2024 2:00 PM Santo Vail MD [facility] CAR 2940 Specialty 05/27/2024 8:45 AM Demetri Bacon MD [facility] OS 340 Specialty 07/13/2024 10:00 AM Brook Muhammad NP [facility] OS 340 Specialty [place] [address] [address] END OF ORDERS Patient Emergency Contact: Primary Emergency Contact: Areli Gayle, Immunization Status at Discharge Immunization History Administered Date(s) Administered Influenza Nasal, Unspecified 04/17/2017 Influenza, Quadrivalent, High Dose, Preservative Free, Intrr 04/02/2020, 03/07/2021, 04/01/2022, 08/07/2022 Influenza, Trivalent, Adjuvanted, Intramuscular 04/06/2019 Influenza, Trivalent, IM (MDV) 04/17/2017 PPD TEST 10/22/2023 Pin digital SARS-CoV-2 Monovalent Vaccination (12+ Yrs) PURPLE 09/22/2020, 10/13/2020, 06/11/2021 Pneumococcal Conjugate PCV 13 03/31/2017 Pneumococcal Polysaccharide PPV23 01/20/2019 Cheryl Slater MD 4:15 PM 04/23/24 documented in this encounter Discharge Instructions * Attachments The following attachments cannot be sent through Care Everywhere. * Encephalopathy (Inpatient Care) ([place]) * Weakness (Discharge Care) ([place]) * Altered Mental Status (General Information) ([place]) * Vancomycin Resistant Enterococcus Infection (Inpatient Care) ([place]) documented in this encounter Medications at Time of Discharge [...] as needed for rhinitis FreeStyle Madhav 3 [place] misc Use Madhav 3 reader to scan [...] once every 2 weeks 4 04/18/[address] (PROTONIX) 40 mg EC tabletIndications:G astroesophageal reflux disease without esophagitis TAKE 1 TABLET(40 MG) BY MOUTH TWICE DAILY 180 tablet 4 pen needle, diabetic (Easy Touch) 32 gauge x 5/32 needleIndications:T ype 2 diabetes mellitus with diabetic [...] as needed for pain 90 tablet 4 benztropine (COGENTIN) 2 mg tabletIndications:P arkinsonism, unspecified Parkinsonism type (HCC) Take 1 tablet (2 mg total) by mouth daily 30 tablet 4 05/24/20 24 carvediloL (COREG) 6.25 mg tabletIndications:U ncontrolled hypertension,Chroni c diastolic congestive heart failure (CMS/HCC) ([facility]) Take 1 tablet (6.25 mg total) by mouth 2 (two) times a day with meals 180 tablet 3 4 05/16/20 24 flash glucose sensor (FreeStyle Madhav 2 Sensor) kitIndications:Type 2 diabetes mellitus with diabetic neuropathy, with long-term current use of insulin ([facility]) Use to continually monitor glucose, change every 14 days 6 kit 3 3 05/16/20 24 gabapentin (NEURONTIN) 100 mg capsuleIndications: Diabetic polyneuropathy associated with type 2 diabetes mellitus (CMS/HCC) ([facility]) TAKE 1 CAPSULE BY MOUTH 3 TIMES PER WEEK AFTER HEMODIALYSIS 12 capsule 2 4 06/07/20 24 NIFEdipine (NIFEdipine CC) 60 mg 24 hr tabletIndications:U ncontrolled hypertension TAKE 1 TABLET BY MOUTH DAILY 90 tablet 4 05/02/20 24 risperiDONE (RisperDAL) 2 mg tablet Take 1 tablet (2 mg total) by mouth nightly 30 tablet 4 05/27/20 24 documented as of this encounter Discharge Disposition Disposition Code Departure Means Destination Discharge to home or self care documented in this encounter Progress Notes * Rick Oconnor PTA - 04/23/2024 11:59 AM CDT Physical Therapy 04/23/24 1015 PT Last Visit PT Missed Visit Reason Procedure/testing/appointment;Unavailable Rehab Only - Missed Reasons - All Disciplines Procedures/testing (Patient receiving treatment with equipment in room where patient checked at 0905 and at 1015 with same outcome.) * Janis Hanson MD - 04/23/2024 8:13 AM CDT Renal Progress Note Dialysis note Admit Date: 04/19/2024 Days: 4 Reason for Follow up: ESRD on HD< TTS, here for confusion, so far Medical work up is normal. Also has dementia and schizophrenia. MRI brain pending. Clinical Course/New Symptoms Mrs. Chakraborty is feeling okay. She has some confusion. She denies any cough, fever, chest pain, shortness of breath, nausea vomiting Data Vitals: 04/23/24 0429 BP: 129/54 Pulse: 71 Resp: 18 Temp: 36.6 ??C (97.9 ??F) SpO2: 96% Exam Constitutional: alert and oriented. Appears well-developed and well-nourished, in no distress. Eyes: No icterus, extraocular movements normal Neck: Neck supple. Cardiovascular: Normal rate and regular rhythm. No murmur heard. Pulmonary/Chest: Breath sounds normal. Abdominal: Soft. Musculoskeletal: exhibits no edema. Intake/Output Summary (Last 24 hours) at 04/23/2024 0813 Last data filed at 04/22/2024 1830 Gross per 24 hour Intake 840 ml Output -- Net 840 ml MEDICATIONS FOR CURRENT ENCOUNTER: SCHEDULED MEDICATIONS: Scheduled Medications Medication Dose Route Frequency aspirin chewable tablet 81 mg 81 mg oral Daily atorvastatin (LIPITOR) tablet 40 mg 40 mg oral Nightly benztropine (COGENTIN) tablet 2 mg 2 mg oral Nightly [Held by Provider] carvediloL (COREG) tablet 6.25 mg 6.25 mg oral BID with meals (bkfst, dinner) [Held by Provider] enoxaparin (LOVENOX) syringe 30 mg 30 mg subcutaneous Daily-2099 ferrous sulfate tablet 325 mg 325 mg oral Daily with breakfast hydrALAZINE (APRESOLINE) tablet 25 mg 25 mg oral BID insulin glargine (LANTUS, SEMGLEE) 100 unit/mL injection 9 Units 0.15 Units/kg subcutaneous Nightly insulin lispro (HumaLOG, ADMELOG) 100 unit/mL injection 0-4 Units 0-4 Units subcutaneous Nightly insulin lispro (HumaLOG, ADMELOG) 100 unit/mL injection 0-5 Units 0-5 Units subcutaneous TID with meals insulin lispro (HumaLOG, ADMELOG) 100 unit/mL injection 3 Units 0.05 Units/kg subcutaneous TID withmeals NIFEdipine (PROCARDIA XL/ADALAT CC) extended release tablet 90 mg 90 mg oral Daily [address] (PROTONIX) extended release tablet 40 mg 40 mg oral BID REQUEST FOR PATIENT'S HOME SUPPLY-sucroferric oxyhydroxide tablet,chewable 0.5 tablet 0.5 tablet oral TID risperiDONE (RisperDAL) tablet 2 mg 2 mg oral Nightly sucralfate (CARAFATE) tablet 1 g 1 g oral QID thiamine (VITAMIN B-1) 100 mg in sodium chloride 0.9% 100 mL IVPB 100 mg intravenous Q24H SOL CONTINUOUS MEDICATIONS: Current Facility-Administered Medications Medication Dose Route Frequency Last Admin PRN MEDICATIONS: PRN Medications Medication Dose Route Frequency Last Admin acetaminophen (TYLENOL) tablet 650 mg 650 mg oral Q4H PRN 650 mg at 04/22/242052 dextrose (GLUTOSE) 40 % gel 15 g 15 g oral Q15 Min PRN Or dextrose (D10W) 10% bolus 250 mL 250 mL intravenous Q15 Min PRN glucagon injection 1 mg 1 mg intramuscular Q30 Min PRN ondansetron ODT (ZOFRAN-ODT) disintegrating tablet 4 mg 4 mg oral Q6H PRN 4 mg at 04/22/241123 Or ondansetron (ZOFRAN) injection 4 mg 4 mg intravenous Q6H PRN polyethylene glycol (MIRALAX) packet 17 g 17 g oral Daily PRN ramelteon (ROZEREM) tablet 8 mg 8 mg oral Nightly PRN senna-docusate (PERICOLACE) 8.6-50 mg per tablet 1 tablet 1 tablet oral BID PRN My review of labs, imaging, notes and other tests is significant for Recent Labs Lab Units 04/22/24 0834 04/21/24 1924 04/21/24 1043 04/21/24 0856 WBC K/cumm 8.7 -- 12.2* 9.1 HEMOGLOBIN g/dL 10.0* 10.1* 9.9* 9.3* HEMATOCRIT % 31.0* 30.6* 30.0* 27.8* PLATELETS K/cumm 199 -- 204 199 . Recent Labs Lab Units 04/22/24203904/22/24175404/22/24 1215 04/22/24 0838 04/22/24 0834 04/21/24 1755 04/21/24 1043 04/21/24 1032 04/21/24 0856 SODIUM mmol/L -- -- -- -- 137 -- 138 -- 139 POTASSIUM PLASMA mmol/L -- -- -- -- 4.6 -- 3.5 -- 5.0* CHLORIDE mmol/L -- -- -- -- 98 -- 98 -- 101 CO2 mmol/L -- -- -- -- 21* -- 28 -- 25 CREATININE mg/dL -- -- -- -- 4.70* -- 2.40* -- 4.60* GLUCOSE mg/dL -- -- -- -- 134 -- 181 -- 163 POC GLUCOSE MONITOR mg/dL 174 110 226* < > -- < > -- < > -- CALCIUM mg/dL -- -- -- -- 9.6 -- 9.2 -- 9.3 ALBUMIN g/dL -- -- -- -- 3.7 -- 3.9 -- 3.6 < > = values in this interval not displayed. .No lab exists for component: COLORUA , CHARACTERUA , SPECGRAVUA , PHUA , PROTEINUA , BLOODUA , LEUKOCYTEUA , NITRITEUA , GLUCOSEUA , KETONEUA , BILIRUBINUA , UROBILINUA , WBCUA , RBCUA , EPITHUA , MUCUSUA , CASTUA , CRYSTALUA , BACTERIAUA , YEASTUA , TRICHUA FL Modified Barium Swallow W Video EXAM DESCRIPTION: FL MODIFIED BARIUM SWALLOW EVALUATION WITH SPEECH THERAPIST REASON FOR STUDY: DIFFICULTY SWALLOWING RADIATION DOSE: Dose: 360.74 uGym2 Dose Area Product (DAP) TECHNIQUE: Fluoroscopic assistance provided to Speech Pathology Department who performed the exam. The patient was brought into the fluoro room and placed upright on a modified barium swallow chair. The patient was then given multiple consistencies mixed [...] Jose Duvall D.O. AP: CLEMENTE Report ID: [id number] Reading Location: [place] [address] Assessment and Plan Principal Problem: Metabolic encephalopathy Active Problems: Primary hypertension Transient loss of consciousness Unresponsive episode Debility Thalamic stroke (HCC) Resolved Problems: No resolved hospital problems. ESRD on was dialyzed today as Thursday, , Thursday schedule she does have a tunneled hemodialysis catheter and may be at risk for catheter related bloodstream infection. Blood cultures are pending. Currently afebrile and mild leukocytosis. Anemia: Hemoglobin is close to goal. She should be on a long-acting erythropoietin analog in the dialysis unit. We will continue to monitor in the hospital and provide her Retacrit if hemoglobin persistently below 10 g% and with prolonged hospitalization. Continue phosphorus binders however consider discontinuing Carafate since it contains some aluminumwhich may be toxic in patients with ESRD. 04/22/24 MRI brain on 04/20/2024 with right thalamic chronic lacunar infarction and other chronic infarctions but no acute/recent infarction. She was dialyzed yesterday with net 550 mL of ultrafiltration. Will plan to dialyze her tomorrow as per her regular Thursday, , Thursday schedule. Hemoglobin is 10.1 g%, she is on a long-acting erythropoietin analog in the dialysis unit and will monitor for in dications in the hospital if hemoglobin less than 10 g% and prolonged hospitalization. 04/23 ---End-stage renal disease on chronic dialysis TTS. She is receiving dialysis today. Patient was seen and examined during HD. ---hypertension: Control with hydralazine and nifedipine ---diabetes ---Anemia with CKD. Last Hg at 10 Janis Hanson MD * Cheryl Slater MD - 04/22/2024 5:24 PM CDT General Medicine Daily Progress Patient seen for follow-up of confusion, ESRD on HD, diabetes, dementia, HTN and schizophrenia. 04/21/2024: I saw this patient this morning and she was reasonably comfortable and answering questions appropriately however she was still disoriented which is no different from yesterday. She was going through dialysis in the vitals were stable at that time. She was answering simple questions appropriately. However after I left about 20 minutes later she had an episode where she was frozen and she was looking up and she was not responsive. Her vitals were stable at that time and the dialysis was continuing. For about 3-4 minutes she was unresponsive and then she came back to her senses. Franchesca lincoln was called. Stat CT head requested. Stat blood sugar is 168 Currently the patient is back to normal. No bladder or bowel incontinence. No tongue biting. 04/22/2024: Patient feeling somewhat better but not a whole lot better. She is able to answer simple questions but not too long sentences. No nausea vomiting or diarrhea. No fever or chills. She passed the swallowing evaluation. Denies any headache chest pain or abdominal pain. No fever or chills no vomiting or diarrhea. Medical history--reviewed. Current medicines--reviewed. Vitals: 24hr Min/Max: Temp Min: 36.6 ??C (97.9 ??F) Max: 36.9 ??C (98.4 ??F) Pulse Min: 63 Max: 79 BP Min: 116/58 Max: 135/57 Resp Min: 18 Max: 22 SpO2 Min: 92 % Max: 100 % Most Recent : Vitals: 04/22/24 1532 BP: 126/53 Pulse: 77 Resp: 18 Temp: 36.6 ??C (97.9 ??F) SpO2: 100% I/O last 2 completed shifts: In: 600 [I.V.:200; Other:400] Out: 950 [Other:950] I/O this shift: In: 600 [P.O.:600] Out: - Physical Exam: Patient awake alert and oriented x2. Disoriented to time. HEENT--unremarkable. Neck--no JVD neck is supple no goiter. Lungs--good air entry, no wheezing,no bronchial breath sound. CVS--S1-S2 heard no S3-S4 gallop. Abdomen--soft, no tenderness, good bowel sounds. ROUTER TENDER--patient moving all extremities. Sensation intact in all extremities. Grossly cranial nerves intact. Tongue in midline. Extraocular movements normal. Motor strength 4/4 in both upper and lower extremity other than generalized weakness otherwise she is doing good. Alert and oriented x2. Extremities--no calf tenderness. No pitting edema. Skin--warm, no rash. Lab/Current Medication Review: Recent Results (from the past 24 hour(s)) POCT glucose Collection Time: 04/21/24 5:55 PM Result Value Ref Range Glucose, POC 135 70 - 199 mg/dL Hemoglobin and hematocrit Collection Time: 04/21/24 7:24 PM Result Value Ref Range Hgb 10.1 (L) 11.9 - 15.5 g/dL Hct 30.6 (L) 35.6 - 45.5 % POCT glucose Collection Time: 04/21/24 8:34 PM Result Value Ref Range Glucose, POC 167 70 - 199 mg/dL Glucose comment 1 Use This Result CBC with auto differential Collection Time: 04/22/24 8:34 AM Result Value Ref Range WBC 8.7 3.8 - 9.9 K/cumm Hgb 10.0 (L) 11.9 - 15.5 g/dL Hct 31.0 (L) 35.6 - 45.5 % Plt 199 150 - 400 K/cumm MPV 11.2 9.1 - 12.3 fL RBC 3.31 (L) 3.90 - 5.20 M/cumm MCV 93.7 81.3 - 96.4 fL MCH 30.2 27.1 - 33.3 pg MCHC 32.3 32.3 - 35.7 g/dL RDW CV 14.4 11.1 - 14.9 % RDW SD 49.1 (H) 35.7 - 48.1 fL NRBC abs 0.00 0.00 - 0.01 K/cumm Comprehensive metabolic panel Collection Time: 04/22/24 8:34 AM Result Value Ref Range Sodium 137 135 - 145 mmol/L Potassium, pl 4.6 3.3 - 4.9 mmol/L Chloride 98 97 - 110 mmol/L CO2 21 (L) 22 - 32 mmol/L Anion gap 18 (H) 2 - 15 mmol/L BUN 53 (H) 6 - 25 mg/dL Creatinine 4.70 (H) 0.60 - 1.10 mg/dL Glucose 134 70 - 199 mg/dL Calcium 9.6 8.5 - 10.3 mg/dL Bilirubin, total 0.2 0.1 - 1.2 mg/dL Protein, pl 7.7 6.5 - 8.5 g/dL Albumin 3.7 3.5 - 5.0 g/dL Alk phos 102 40 - 130 Units/L ALT 21 7 - 45 Units/L AST 14 10 - 45 Units/L Differential, auto Collection Time: 04/22/24 8:34 AM Result Value Ref Range Neutrophil abs 5.8 1.5 - 6.5 K/cumm Imm gran abs 0.0 0.0 - 0.1 K/cumm Lymphocyte abs 2.3 0.8 - 3.3 K/cumm Monocyte abs 0.6 0.2 - 0.8 K/cumm Eosinophil abs 0.1 0.0 - 0.5 K/cumm Basophil abs 0.0 0.0 - 0.1 K/cumm Neutrophil pct 66.3 % Imm gran pct 0.2 % Lymphocyte pct 26.0 % Monocyte pct 6.4 % Eosinophil pct 0.9 % Basophil pct 0.2 % eGFR Collection Time: 04/22/24 8:34 AM Result Value Ref Range eGFR 9 (L) >=60 mL/min/1.73 m2 POCT glucose Collection Time: 04/22/24 8:38 AM Result Value Ref Range Glucose, POC 130 70 - 199 mg/dL Glucose comment 1 Use This Result Glucose comment 2 RN/MD Notified POCT glucose Collection Time: 04/22/24 12:15 PM Result Value Ref Range Glucose, POC 226 (H) 70 - 199 mg/dL Glucose comment 1 Use This Result Glucose comment 2 RN/MD Notified Imaging --reviewed. CT of the head shows no acute findings. Repeat stat CT head requested due to the unresponsive episode. MRI of the brain--pending. Chest x-ray--shows no acute cardiopulmonary findings. UA--unremarkable. Ammonia level--normal. TSH ordered---normal A/P: Principal Problem: Metabolic encephalopathy Active Problems: Primary hypertension Transient loss of consciousness Unresponsive episode Debility Thalamic stroke (HCC) Resolved Problems: No resolved hospital problems. Impression: 1. Altered mental status--unclear etiology, r/o CVA vs. Exac of Alzheimer's dementia. 2. ESRD on HD, TTS. 3. Diabetes type 2 on insulin. 4. Alzheimer's dementia. 5. HTN. 6. Schizophrenia. 7. Pill roll tremor---r/o Parkinsons 8. Unresponsive episode--eyes rolling upwards-- r/o Seizure Plan: CT of the head did not show any acute findings. EEG is also negative for any seizure activity. MRI brain reviewed discussed with the neurologist--he said there was no acute findings and the altered mental status could be from dialysis disequilibrium and he said no further neuro intervention atthis time and he recommended the patient can be discharged if she remains stable and follow-up withoutpatient Neurology in 1 week or 2 weeks. Continue dialysis as scheduled. If she passes a swallow evaluation then plan for discharge tomorrow after dialysis. DVT prophylaxis: Lovenox 30 Medical complexity/risk: Medium Voice recognition software used to dictate and transcribe this document. [employer] Plant Operator variances may occur. Despite proofreading, typographical errors may occur. Cheryl Slater MD 04/22/2024 5:24 PM * Wilner Kruse, TAKE OFF WORKER - 04/22/2024 10:49 AM CDT Physical Therapy 04/22/24 1049 PT Last Visit Session Type Treatment PT Received On 04/22/24 Safe Environment Patient found sitting in chair;Arm band checked;Session completed bedside Subjective Agreeable to Therapy Family/Caregiver Present No Precautions Precautions Bed/Chair Alarm;Fall risk;Safety Pain Assessment Pain Assessment 0-10 Pain Score 4 Patient's Stated Pain Goal No pain Pain Type Acute pain Pain Location Back (Lumbar) Pain Orientation Generalized Pain Descriptors Aching;Sore Cognition Arousal/Alertness Alert Orientation Oriented to person;Oriented to place Following Commands Follows one step commands with repetition Transfer 1 Transfer From 1 Chair with arms;Sit Transfer Type 1 To and from Transfer to 1 Stand Technique 1 Sit to stand;Stand to sit Transfer Device 1 Wheeled walker Transfer Level of Assistance 1 Minimum Assist;Minimal verbal cues Trials/Comments 1 Cues to press up from the chair arms. Ambulation Functional Ambulation Category 2 Ambulation Yes Ambulation 1 Distance (ft) 1 60' Surface 1 Level tile Device 1 Wheeled walker Assistance 1 Minimum Assist;Minimal verbal cues Gait: Requires assist with 1 Maintaining balance Gait: Requires verbal cues to 1 Use assistive device safely;Prevent bumping into environmental barriers (huizar/furniture);Increase step length;Increase base of support Gait Deviations 1 Base of support - decreased;Brigid - decreased;Step length - decreased Quality of Gait 1 Good Ambulation Comments 1 Pt ambulated well w/no LOB noted. Pt offers no other complaints. Safe Environment End of Therapy Session Safe Environment End of Therapy Session Patient left in chair;Chair alarm in place and activated;RNnotified;Call light within reach;Overbed table within reach Recommendation/Plan PT Recommendation/Plan (S) Home with 24 hour supervision;Home Health PT;Home Health OT Patient at high risk for (S) Falls Progress during current admission Progressing toward goals PT Time Calculation PT Start Time 1049 PT Stop Time 1101 PT Time Calculation (min) 12 min Multi-Disciplinary Problems (from Physical Therapy) Active Problems Problem: Mobility Start Date: 04/20/24 Goal Start Date Expected End Date End Date LTG - Patient will demonstrate functional mobility with the following level of assist: 04/20/24 05/04/24 -- Goal Details: Pt will transfer and ambulate w walker, 75 feet, sba of 1. Progressing. [employer] Truck Driver Services Utilized: NO Educated the patient to the role of physical therapy, plan of care, goals of therapy, rationale forprogressing mobility. Patient was left with all needs met and equipment intact. Mobility and ADL status posted at bedsideand within medical record. * Tucker Pitts MD - 04/22/2024 9:01 AM CDT Renal Progress Note Admit Date: 04/19/2024 Days: 3 Reason for Follow up: ESRD on HD< TTS, here for confusion, so far Medical work up is normal. Also has dementia and schizophrenia. MRI brain pending. Clinical Course/New Symptoms Patient is sitting in a chair in no acute distress. No new complaints. No shortness of breath, nausea vomiting. Data Vitals: 04/22/24 0747 BP: 131/62 Pulse: 75 Resp: 18 Temp: 36.6 ??C (97.9 ??F) SpO2: 96% Exam Constitutional: alert and oriented. Appears well-developed and well-nourished, in no distress. Head: Normocephalic. Eyes: No icterus, extraocular movements normal Neck: Neck supple. Cardiovascular: Normal rate and regular rhythm. No murmur heard. Pulmonary/Chest: Breath sounds normal. Abdominal: Soft. Musculoskeletal: exhibits no edema. Neurological: alert and moves all 4 limbs. But confused Skin: No rashes Intake/Output Summary (Last 24 hours) at 04/22/2024 0901 Last data filed at 04/21/2024 1046 Gross per 24 hour Intake 600 ml Output 950 ml Net -350 ml MEDICATIONS FOR CURRENT ENCOUNTER: SCHEDULED MEDICATIONS: Scheduled Medications Medication Dose Route Frequency aspirin chewable tablet 81 mg 81 mg oral Daily atorvastatin (LIPITOR) tablet 40 mg 40 mg oral Nightly benztropine (COGENTIN) tablet 2 mg 2 mg oral Nightly [Held by Provider] carvediloL (COREG) tablet 6.25 mg 6.25 mg oral BID with meals (bkfst, dinner) [Held by Provider] enoxaparin (LOVENOX) syringe 30 mg 30 mg subcutaneous Daily-2100 ferrous sulfate tablet 325 mg 325 mg oral Daily with breakfast hydrALAZINE (APRESOLINE) tablet 25 mg 25 mg oral BID insulin glargine (LANTUS, SEMGLEE) 100 unit/mL injection 9 Units 0.15 Units/kg subcutaneous Nightly insulin lispro (HumaLOG, ADMELOG) 100 unit/mL injection 0-4 Units 0-4 Units subcutaneous Nightly insulin lispro (HumaLOG, ADMELOG) 100 unit/mL injection 0-5 Units 0-5 Units subcutaneous TID with meals insulin lispro (HumaLOG, ADMELOG) 100 unit/mL injection 3 Units 0.05 Units/kg subcutaneous TID withmeals NIFEdipine (PROCARDIA XL/ADALAT CC) extended release tablet 90 mg 90 mg [address] Daily [address] (PROTONIX) extended release tablet 40 mg 40 mg oral BID REQUEST FOR PATIENT'S HOME SUPPLY-sucroferric oxyhydroxide tablet,chewable 0.5 tablet 0.5 tablet oral TID risperiDONE (RisperDAL) tablet 2 mg 2 mg oral Nightly sucralfate (CARAFATE) tablet 1 g 1 g oral QID CONTINUOUS MEDICATIONS: Current Facility-Administered Medications Medication Dose Route Frequency Last Admin PRN MEDICATIONS: PRN Medications Medication Dose Route Frequency Last Admin acetaminophen (TYLENOL) tablet 650 mg 650 mg oral Q4H PRN dextrose (GLUTOSE) 40 % gel 15 g 15 g oral Q15 Min PRN Or dextrose (D10W) 10% bolus 250 mL 250 mL intravenous Q15 Min PRN glucagon injection 1 mg 1 mg intramuscular Q30 Min PRN ondansetron ODT (ZOFRAN-ODT) disintegrating tablet 4 mg 4 mg oral Q6H PRN Or ondansetron (ZOFRAN) injection 4 mg 4 mg intravenous Q6H PRN polyethylene glycol (MIRALAX) packet 17 g 17 g oral Daily PRN ramelteon (ROZEREM) tablet 8 mg 8 mg oral Nightly PRN senna-docusate (PERICOLACE) 8.6-50 mg per tablet 1 tablet 1 tablet oral BID PRN My review of labs, imaging, notes and other tests is significant for Recent Labs Lab Units 04/21/24 1924 04/21/24 1043 04/21/24 0856 04/20/24 0755 WBC K/cumm -- 12.2* 9.1 10.3* HEMOGLOBIN g/dL 10.1* 9.9* 9.3* 9.7* HEMATOCRIT % 30.6* 30.0* 27.8* 29.9* PLATELETS K/cumm -- 204 199 207 . Recent Labs Lab Units 04/22/24 0838 04/21/24 2034 04/21/24 1755 04/21/24 1043 04/21/24 1032 04/21/24 0856 04/20/24 0830 04/20/24 0755 SODIUM mmol/L -- -- -- 138 -- 139 -- 140 POTASSIUM PLASMA mmol/L -- -- -- 3.5 -- 5.0* -- 4.6 CHLORIDE mmol/L -- -- -- 98 -- 101 -- 103 CO2 mmol/L -- -- -- 28 -- 25 -- 25 CREATININE mg/dL -- -- -- 2.40* -- 4.60* -- 3.20* GLUCOSE mg/dL -- -- -- 181 -- 163 -- 115 POC GLUCOSE MONITOR mg/dL 130 167 135 -- < > -- < > -- CALCIUM mg/dL -- -- -- 9.2 -- 9.3 -- 9.4 ALBUMIN g/dL -- -- -- 3.9 -- 3.6 -- 3.6 < > = values in this interval not displayed. .No lab exists for component: COLORUA , CHARACTERUA , SPECGRAVUA , PHUA , PROTEINUA , BLOODUA , LEUKOCYTEUA , NITRITEUA , GLUCOSEUA , KETONEUA , BILIRUBINUA , UROBILINUA , WBCUA , RBCUA , EPITHUA , MUCUSUA , CASTUA , CRYSTALUA , BACTERIAUA , YEASTUA , TRICHUA CT Head WO Contrast EXAM DESCRIPTION: CT HEAD WO CONTRAST REASON FOR STUDY: Acute altered mental status. Rapid called on this patient. TECHNIQUE: Axial images acquired through the brain without intravenous contrast. Images stored on PACS. Automated exposure control was used as a dose optimization technique for this examination. COMPARISON: 04/19/2024. Brain MRI 04/20/2024. FINDINGS: BRAIN: No acute intraparenchymal hemorrhage, cerebral edema, hydrocephalus, mass, or mass effect. EXTRA-AXIAL SPACES: No [...] Robert Fay M.D. CH: KECIA Report ID: [id number] Reading Location: [id number] Assessment and Plan Principal Problem: Metabolic encephalopathy Active Problems: Primary hypertension Unresponsive episode Debility Resolved Problems: No resolved hospital problems. ESRD on was dialyzed today as Thursday, , Thursday schedule she does have a tunneled hemodialysis catheter and may be at risk for catheter related bloodstream infection. Blood cultures are pending. Currently afebrile and mild leukocytosis. Anemia: Hemoglobin is close to goal. She should be on a long-acting erythropoietin analog in the dialysis unit. We will continue to monitor in the hospital and provide her Retacrit if hemoglobin persistently below 10 g% and with prolonged hospitalization. Continue phosphorus binders however consider discontinuing Carafate since it contains some aluminumwhich may be toxic in patients with ESRD. 04/22/24 MRI brain on 04/20/2024 with right thalamic chronic lacunar infarction and other chronic infarctions but no acute/recent infarction. She was dialyzed yesterday with net 550 mL of ultrafiltration. Will plan to dialyze her tomorrow as per her regular Thursday, , Thursday schedule. Hemoglobin is 10.1 g%, she is on a long-acting erythropoietin analog in the dialysis unit and will monitor for in dications in the hospital if hemoglobin less than 10 g% and prolonged hospitalization. Thank you. Tucker Pitts MD [facility] Medical [facility] Nephrology and Hypertension Office: [phone] * Erica Marquez COTA - 04/22/2024 8:01 AM CDT Occupational Therapy 04/22/24 0801 General Session Type Treatment OT Received On 04/22/24 Safe Environment Arm band checked;Patient found sitting in chair;Session completed bedside Subjective Agreeable to Therapy Subjective Comment I use a wheelchair at home Family/Caregiver Present No Current Functional Status OT Functional Mobility Patient completed sit <> stand from standard chair with CGA and verbalcues for proper hand placement. Patient demonstrated in room mobility including item retrieval handheld assist/walker with CGA and verbal cues for safe functional reach. OT Self Care Patient doff/don bilateral socks sitting supported in chair with Antoni. Patient completed donning underwear to knee level with Antoni for threading and underwear over hips with ModA. Precautions Precautions Bed/Chair Alarm;Fall risk Pain Assessment Pain Assessment No/denies pain Balance Balance Yes Static Standing Balance Static Standing-Balance Support Bilateral upper extremity supported;Unilateral upper extremity supported Static Standing-Standing Surface Floor Static Standing-Level of Assistance Contact guard Dynamic Standing Balance Dynamic Standing-Balance Support Unilateral upper extremity supported;No upper extremity supported Dynamic Standing-Balance Forward lean;Reaching for objects;Reaching across midline Dynamic Standing-Standing Surface Floor Dynamic Standing-Level of Assistance Contact guard Dynamic Standing-Comments up to 3-4 minutes X 2 trials Safe Environment End of Therapy Session Safe Environment End of Therapy Session Patient left in chair;Chair alarm in place and activated;RNnotified;Call light within reach;Overbed table within reach Plan Plan Continue with current plan Recommendation/Plan OT Recommendation (S) Home with family;Home Health OT OT Time Calculation OT Start Time 800 OT Stop Time 823 OT Time Calculation (min) 23 min [employer] Truck [employer] Services Utilized: NO Patient is identified by name and date of on this visit. Education provided to the patient/caregiver regarding the role of occupational therapy, plan of care, goals of therapy, rationale for progressing mobility and use of call light. Fair understanding. * Wilner Kruse PTA - 04/21/2024 2:09 PM CDT Physical Therapy 04/21/24 1409 PT Last Visit Session Type Treatment PT Missed Visit Reason MD/RN Hold (Code Blue called during dialysis session. Pt doing better now, but pt's RN, Marie Vega, requested to hold therapy this date and check back in AM.) * Evelyn Farfan RN - 04/21/2024 2:00 PM CDT Consult to [facility] Palliative Care received, thank you. Sixto Chakraborty 1950 73 y.o. [id number] Diagnosis: Alzheimer's dementia. Metabolic encephalopathy Code Status: Full [facility] Construction Representative spoke with Areli acknowledging palliative care consult. Informed her [facility] Construction Representative will be available at [phone] to speak with patient and family, she verbalized understanding. Spoke with Areli about what her mom was like prior to hospitalization. Areli describes her mom as a talkative person that likes to joke and laugh. She states that her mom is pleasantly confused at times. She knows who she is and where she is but typically is unable to tell you the date or who is president. Also discussed goals of care and code status. Areli states that her mom would want to be a full code. Areli is agreeable to follow up. Please contact [facility] with any questions or needs for support at: Evelyn Farfan RN PCS [facility] Construction Representative [facility] 24 Hour Triage Support [phone]. * Becky Gold SLP - 04/21/2024 12:20 PM CDT [facility] Inpatient Speech-Language Pathology Missed Visit Note Patient Name/: Sixto Chakraborty / 1950 Age/Sex: 73 y.o. / female Room/Date of Service: [id number] / 04/21/2024 Time: Session Type: Session Type: Treatment Missed Visit Reason: PULVERIZING AND SIFTING OPERATOR Missed Visit Reason: MD/RN Hold (diet technician registered called PULVERIZING AND SIFTING OPERATOR to report that pt's MBS is on hold per RN due to code being called on pt earlier today) Next Planned Attempt 04/22/24 PULVERIZING AND SIFTING OPERATOR will attempt treatment at another time/date as patient is appropriate and available. Becky Gold M.S., [facility]-PULVERIZING AND SIFTING OPERATOR * Cheryl Slater MD - 04/21/2024 11:07 AM CDT General Medicine Daily Progress Patient seen for follow-up of confusion, ESRD on HD, diabetes, dementia, HTN and schizophrenia. 04/20/2024: Patient was reasonably comfortable and talking to me and answering questions appropriately. Denies any headache chest pain or abdominal pain. No nausea vomiting or diarrhea. She was able to answer most of the questions appropriately except for the year 2023. Denies any shortness of breath. No blood in the stool or urine. According to the nurse that seems to be no acute issues except for some mild confusion. She always has some confusion due to the dementia and schizophrenia. 04/21/2024: I saw this patient this morning and she was reasonably comfortable and answering questions appropriately however she was still disoriented which is no different from yesterday. She was going through dialysis in the vitals were stable at that time. She was answering simple questions appropriately. However after I left about 20 minutes later she had an episode where she was frozen and she was looking up and she was not responsive. Her vitals were stable at that time and the dialysis was continuing. For about 3-4 minutes she was unresponsive and then she came back to her senses. Franchesca blue was called. Stat CT head requested. Stat blood sugar is 168 Currently the patient is back to normal. No bladder or bowel incontinence. No tongue biting. Medical history--reviewed. Current medicines--reviewed. Vitals: 24hr Min/Max: Temp Min: 36.7 ??C (98 ??F) Max: 37.2 ??C (99 ??F) Pulse Min: 58 Max: 78 BP Min: 116/54 Max: 147/69 Resp Min: 18 Max: 22 SpO2 Min: 95 % Max: 98 % Most Recent : Vitals: 04/21/24 0837 BP: 116/54 Pulse: 69 Resp: 18 Temp: 36.7 ??C (98 ??F) SpO2: I/O last 2 completed shifts: In: - Out: 350 [Urine:350] No intake/output data recorded. Physical Exam: Patient awake alert and oriented x2. Disoriented to time. HEENT--unremarkable. Neck--no JVD neck is supple no goiter. Lungs--good air entry, no wheezing,no bronchial breath sound. CVS--S1-S2 heard no S3-S4 gallop. Abdomen--soft, no tenderness, good bowel sounds. ROUTER TENDER--patient moving all extremities. Sensation intact in all extremities. Grossly cranial nerves intact. Tongue in midline. Extraocular movements normal. Motor strength 4/4 in both upper and lower extremity other than generalized weakness otherwise she is doing good. Alert and oriented x2. Extremities--no calf tenderness. No pitting edema. Skin--warm, no rash. Lab/Current Medication Review: Recent Results (from the past 24 hour(s)) POCT glucose Collection Time: 04/20/24 12:17 PM Result Value Ref Range Glucose, POC 196 70 - 199 mg/dL POCT glucose Collection Time: 04/20/24 4:47 PM Result Value Ref Range Glucose, POC 204 (H) 70 - 199 mg/dL POCT glucose Collection Time: 04/20/24 8:18 PM Result Value Ref Range Glucose, POC 209 (H) 70 - 199 mg/dL Glucose comment 1 Use This Result POCT glucose Collection Time: 04/21/24 7:51 AM Result Value Ref Range Glucose, POC 193 70 - 199 mg/dL Glucose comment 1 Use This Result Glucose comment 2 RN/MD Notified CBC with auto differential Collection Time: 04/21/24 8:56 AM Result Value Ref Range WBC 9.1 3.8 - 9.9 K/cumm Hgb 9.3 (L) 11.9 - 15.5 g/dL Hct 27.8 (L) 35.6 - 45.5 % Plt 199 150 - 400 K/cumm MPV 10.7 9.1 - 12.3 fL RBC 2.98 (L) 3.90 - 5.20 M/cumm MCV 93.3 81.3 - 96.4 fL MCH 31.2 27.1 - 33.3 pg MCHC 33.5 32.3 - 35.7 g/dL RDW CV 14.4 11.1 - 14.9 % RDW SD 49.0 (H) 35.7 - 48.1 fL NRBC abs 0.00 0.00 - 0.01 K/cumm Comprehensive metabolic panel Collection Time: 04/21/24 8:56 AM Result Value Ref Range Sodium 139 135 - 145 mmol/L Potassium, pl 5.0 (H) 3.3 - 4.9 mmol/L Chloride 101 97 - 110 mmol/L CO2 25 22 - 32 mmol/L Anion gap 13 2 - 15 mmol/L BUN 65 (H) 6 - 25 mg/dL Creatinine 4.60 (H) 0.60 - 1.10 mg/dL Glucose 163 70 - 199 mg/dL Calcium 9.3 8.5 - 10.3 mg/dL Bilirubin, total <0.2 0.1 - 1.2 mg/dL Protein, pl 6.7 6.5 - 8.5 g/dL Albumin 3.6 3.5 - 5.0 g/dL Alk phos 137 (H) 40 - 130 Units/L ALT 32 7 - 45 Units/L AST 19 10 - 45 Units/L Differential, auto Collection Time: 04/21/24 8:56 AM Result Value Ref Range Neutrophil abs 6.2 1.5 - 6.5 K/cumm Imm gran abs 0.0 0.0 - 0.1 K/cumm Lymphocyte abs 2.2 0.8 - 3.3 K/cumm Monocyte abs 0.6 0.2 - 0.8 K/cumm Eosinophil abs 0.1 0.0 - 0.5 K/cumm Basophil abs 0.0 0.0 - 0.1 K/cumm Neutrophil pct 67.9 % Imm gran pct 0.4 % Lymphocyte pct 24.5 % Monocyte pct 6.0 % Eosinophil pct 1.0 % Basophil pct 0.2 % eGFR Collection Time: 04/21/24 8:56 AM Result Value Ref Range eGFR 10 (L) >=60 mL/min/1.73 m2 POCT glucose Collection Time: 04/21/24 10:32 AM Result Value Ref Range Glucose, POC 168 70 - 199 mg/dL CBC with auto differential Collection Time: 04/21/24 10:43 AM Result Value Ref Range WBC 12.2 (H) 3.8 - 9.9 K/cumm Hgb 9.9 (L) 11.9 - 15.5 g/dL Hct 30.0 (L) 35.6 - 45.5 % Plt 204 150 - 400 K/cumm MPV 10.7 9.1 - 12.3 fL RBC 3.27 (L) 3.90 - 5.20 M/cumm MCV 91.7 81.3 - 96.4 fL MCH 30.3 27.1 - 33.3 pg MCHC 33.0 32.3 - 35.7 g/dL RDW CV 14.4 11.1 - 14.9 % RDW SD 48.4 (H) 35.7 - 48.1 fL NRBC abs 0.00 0.00 - 0.01 K/cumm Differential, auto Collection Time: 04/21/24 10:43 AM Result Value Ref Range Neutrophil abs 8.1 (H) 1.5 - 6.5 K/cumm Imm gran abs 0.1 0.0 - 0.1 K/cumm Lymphocyte abs 3.2 0.8 - 3.3 K/cumm Monocyte abs 0.7 0.2 - 0.8 K/cumm Eosinophil abs 0.1 0.0 - 0.5 K/cumm Basophil abs 0.0 0.0 - 0.1 K/cumm Neutrophil pct 66.1 % Imm gran pct 0.6 % Lymphocyte pct 26.4 % Monocyte pct 5.8 % Eosinophil pct 0.9 % Basophil pct 0.2 % POC Blood Gas and Chemistries, Arterial - Collection Time: 04/21/24 10:46 AM Result Value Ref Range pH, art POC 7.49 (H) 7.35 - 7.45 pCO2, art POC 38 35 - 45 mmHg pO2, art POC 91 83 - 108 mmHg HCO3, art (Calc) POC 29 20 - 30 mmol/L Base excess, art POC 5 mmol/L Imaging --reviewed. CT of the head shows no acute findings. Repeat stat CT head requested due to the unresponsive episode. MRI of the brain--pending. Chest x-ray--shows no acute cardiopulmonary findings. UA--unremarkable. Ammonia level--normal. TSH ordered--pending. A/P: Principal Problem: Metabolic encephalopathy Active Problems: Primary hypertension Resolved Problems: No resolved hospital problems. Impression: 1. Altered mental status--unclear etiology, r/o CVA vs. Exac of Alzheimer's dementia. 2. ESRD on HD, TTS. 3. Diabetes type 2 on insulin. 4. Alzheimer's dementia. 5. HTN. 6. Schizophrenia. 7. Pill roll tremor---r/o Parkinsons 8. Unresponsive episode--eyes rolling upwards-- r/o Seizure Plan: Stat CT of the head ordered. Stat EEG ordered because of the bradycardia. Will look for 2nd or third-degree heart block. EEG requested in suspicion of the seizures. Contacted the neurologist on-call who kindly agreed to see the patient. Continue to monitor the blood pressure and blood sugar. MRI of the brain does not show any acute stroke however shows old stroke as well as periventricularischemic changes. Further management as per Neurology recommendations. DVT prophylaxis: Lovenox 30 Medical complexity/risk: High Voice recognition software used to dictate and transcribe this document. [employer] Operator variances may occur. Despite proofreading, typographical errors may occur. Cheryl Slater MD 04/21/2024 11:07 AM * Erica Marquez COTA - 04/21/2024 10:26 AM CDT Occupational Therapy 04/21/24 1042 General Session Type Treatment OT Missed Visit Reason Procedure/testing/appointment (dialysis at bedside) * Wilner Kruse PTA - 04/21/2024 8:57 AM CDT Physical Therapy 04/21/24 0857 PT Last Visit Session Type Treatment PT Missed Visit Reason (S) Procedure/testing/appointment;With other staff/receiving another service (Dialysis) * Cheryl Slater MD - 04/20/2024 2:46 PM CDT General Medicine Daily Progress Patient seen for follow-up of confusion, ESRD on HD, diabetes, dementia, HTN and schizophrenia. Patient was reasonably comfortable and talking to me and answering questions appropriately. Denies any headache chest pain or abdominal pain. No nausea vomiting or diarrhea. She was able to answer most of the questions appropriately except for the year 2023. Denies any shortness of breath. No blood in the stool or urine. According to the nurse that seems to be no acute issues except for some mild confusion. She always has some confusion due to the dementia and schizophrenia. Medical history--reviewed. Current medicines--reviewed. Vitals: 24hr Min/Max: Temp Min: 36.4 ??C (97.6 ??F) Max: 37.1 ??C (98.8 ??F) Pulse Min: 63 Max: 83 BP Min: 146/91 Max: 194/70 Resp Min: 11 Max: 22 SpO2 Min: 86 % Max: 99 % Most Recent : Vitals: 04/20/24 0748 BP: 166/63 Pulse: 63 Resp: 18 Temp: 37.1 ??C (98.8 ??F) SpO2: 92% I/O last 2 completed shifts: In: - Out: 1500 [Urine:1500] No intake/output data recorded. Physical Exam: Patient awake alert and oriented x2. Disoriented to time. HEENT--unremarkable. Neck--no JVD neck is supple no goiter. Lungs--good air entry, no wheezing,no bronchial breath sound. CVS--S1-S2 heard no S3-S4 gallop. Abdomen--soft, no tenderness, good bowel sounds. ROUTER TENDER--patient moving all extremities. Sensation intact in all extremities. Grossly cranial nerves intact. Tongue in midline. Extraocular movements normal. Motor strength 4/4 in both upper and lower extremity other than generalized weakness otherwise she is doing good. Alert and oriented x2. Extremities--no calf tenderness. No pitting edema. Skin--warm, no rash. Lab/Current Medication Review: Recent Results (from the past 24 hour(s)) POCT glucose Collection Time: 04/19/24 4:52 PM Result Value Ref Range Glucose, POC 115 70 - 199 mg/dL CBC with auto differential Collection Time: 04/19/24 4:57 PM Result Value Ref Range WBC 11.2 (H) 3.8 - 9.9 K/cumm Hgb 9.9 (L) 11.9 - 15.5 g/dL Hct 30.0 (L) 35.6 - 45.5 % Plt 208 150 - 400 K/cumm MPV 10.9 9.1 - 12.3 fL RBC 3.28 (L) 3.90 - 5.20 M/cumm MCV 91.5 81.3 - 96.4 fL MCH 30.2 27.1 - 33.3 pg MCHC 33.0 32.3 - 35.7 g/dL RDW CV 14.6 11.1 - 14.9 % RDW SD 49.1 (H) 35.7 - 48.1 fL NRBC abs 0.00 0.00 - 0.01 K/cumm Comprehensive metabolic panel Collection Time: 04/19/24 4:57 PM Result Value Ref Range Sodium 137 135 - 145 mmol/L Potassium, pl 3.8 3.3 - 4.9 mmol/L Chloride 96 (L) 97 - 110 mmol/L CO2 26 22 - 32 mmol/L Anion gap 15 2 - 15 mmol/L BUN 22 6 - 25 mg/dL Creatinine 2.30 (H) 0.60 - 1.10 mg/dL Glucose 114 70 - 199 mg/dL Calcium 9.2 8.5 - 10.3 mg/dL Bilirubin, total 0.3 0.1 - 1.2 mg/dL Protein, pl 8.1 6.5 - 8.5 g/dL Albumin 4.1 3.5 - 5.0 g/dL Alk phos 133 (H) 40 - 130 Units/L ALT 50 (H) 7 - 45 Units/L AST 33 10 - 45 Units/L Protime-INR Collection Time: 04/19/24 4:57 PM Result Value Ref Range PT 13.5 12.0 - 14.6 sec INR 1.0 0.9 - 1.2 aPTT Collection Time: 04/19/24 4:57 PM Result Value Ref Range aPTT 64 (H) 22 - 37 sec Troponin T high-sensitivity series (baseline, 2hr, 4hr, 6hr) Collection Time: 04/19/24 4:57 PM Result Value Ref Range Trop T hs 65 (H) <=14 ng/L Differential, auto Collection Time: 04/19/24 4:57 PM Result Value Ref Range Neutrophil abs 8.3 (H) 1.5 - 6.5 K/cumm Imm gran abs 0.1 0.0 - 0.1 K/cumm Lymphocyte abs 2.1 0.8 - 3.3 K/cumm Monocyte abs 0.6 0.2 - 0.8 K/cumm Eosinophil abs 0.1 0.0 - 0.5 K/cumm Basophil abs 0.0 0.0 - 0.1 K/cumm Neutrophil pct 74.2 % Imm gran pct 0.4 % Lymphocyte pct 19.2 % Monocyte pct 5.2 % Eosinophil pct 0.7 % Basophil pct 0.3 % eGFR Collection Time: 04/19/24 4:57 PM Result Value Ref Range eGFR 22 (L) >=60 mL/min/1.73 m2 Urinalysis reflex to microscopic and culture Urine Collection Time: 04/19/24 5:20 PM Specimen: Urine Result Value Ref Range Color, ur Yellow Yellow Clarity, ur Clear Clear Specific gravity, ur 1.011 1.003 - 1.030 pH, urine 7.0 Protein, ur ql 2+ (A) Negative Glucose, ur ql Trace (A) Negative Ketones, ur Negative Negative Bilirubin, ur Negative Negative Blood, ur Negative Negative Urobilinogen, ur <2.0 <2.0 mg/dL Nitrite, ur Negative Negative Leukocyte esterase, ur Negative Negative UA reflex comment Reflex to microscopic UA will be performed. Urinalysis, microscopic only Collection Time: 04/19/24 5:20 PM Result Value Ref Range WBC, ur 0-5 0 - 5 /HPF RBC, ur 3-5 (A) 0 - 2 /HPF Mucous, ur Present (A) Culture Reflex Comment Reflex conditions for urine culture (WBC >10) not met. Troponin T high-sensitivity 2-hour Collection Time: 04/19/24 6:27 PM Result Value Ref Range Trop T hs 63 (H) <=14 ng/L Trop T hs delta See Comment ng/L Trop T hs pct delta See Comment % Trop T hs interp See Comment Ammonia Collection Time: 04/19/24 6:27 PM Result Value Ref Range Ammonia 19 <=50 mcmol/L POCT glucose Collection Time: 04/19/24 7:16 PM Result Value Ref Range Glucose, POC 99 70 - 199 mg/dL Glucose comment 1 Use This Result Influenza A/B, RSV, and COVID-19 PCR Nasopharyngeal Collection Time: 04/19/24 10:53 PM Specimen: Nasopharyngeal Result Value Ref Range COVID-19 RNA Negative Negative Influenza A RNA Negative Negative Influenza B RNA Negative Negative RSV RNA Negative Negative CBC with auto differential Collection Time: 04/20/24 7:55 AM Result Value Ref Range WBC 10.3 (H) 3.8 - 9.9 K/cumm Hgb 9.7 (L) 11.9 - 15.5 g/dL Hct 29.9 (L) 35.6 - 45.5 % Plt 207 150 - 400 K/cumm MPV 10.7 9.1 - 12.3 fL RBC 3.20 (L) 3.90 - 5.20 M/cumm MCV 93.4 81.3 - 96.4 fL MCH 30.3 27.1 - 33.3 pg MCHC 32.4 32.3 - 35.7 g/dL RDW CV 14.5 11.1 - 14.9 % RDW SD 49.1 (H) 35.7 - 48.1 fL NRBC abs 0.00 0.00 - 0.01 K/cumm Comprehensive metabolic panel Collection Time: 04/20/24 7:55 AM Result Value Ref Range Sodium 140 135 - 145 mmol/L Potassium, pl 4.6 3.3 - 4.9 mmol/L Chloride 103 97 - 110 mmol/L CO2 25 22 - 32 mmol/L Anion gap 12 2 - 15 mmol/L BUN 34 (H) 6 - 25 mg/dL Creatinine 3.20 (H) 0.60 - 1.10 mg/dL Glucose 115 70 - 199 mg/dL Calcium 9.4 8.5 - 10.3 mg/dL Bilirubin, total 0.2 0.1 - 1.2 mg/dL Protein, pl 7.0 6.5 - 8.5 g/dL Albumin 3.6 3.5 - 5.0 g/dL Alk phos 106 40 - 130 Units/L ALT 35 7 - 45 Units/L AST 18 10 - 45 Units/L Differential, auto Collection Time: 04/20/24 7:55 AM Result Value Ref Range Neutrophil abs 7.5 (H) 1.5 - 6.5 K/cumm Imm gran abs 0.0 0.0 - 0.1 K/cumm Lymphocyte abs 2.2 0.8 - 3.3 K/cumm Monocyte abs 0.6 0.2 - 0.8 K/cumm Eosinophil abs 0.1 0.0 - 0.5 K/cumm Basophil abs 0.0 0.0 - 0.1 K/cumm Neutrophil pct 72.3 % Imm gran pct 0.3 % Lymphocyte pct 21.0 % Monocyte pct 5.6 % Eosinophil pct 0.6 % Basophil pct 0.2 % eGFR Collection Time: 04/20/24 7:55 AM Result Value Ref Range eGFR 15 (L) >=60 mL/min/1.73 m2 POCT glucose Collection Time: 04/20/24 8:30 AM Result Value Ref Range Glucose, POC 119 70 - 199 mg/dL Ammonia Collection Time: 04/20/24 8:53 AM Result Value Ref Range Ammonia 26 <=50 mcmol/L POCT glucose Collection Time: 04/20/24 12:17 PM Result Value Ref Range Glucose, POC 196 70 - 199 mg/dL Imaging --reviewed. CT of the head shows no acute findings. MRI of the brain--pending. Chest x-ray--shows no acute cardiopulmonary findings. UA--unremarkable. Ammonia level--normal. A/P: Principal Problem: Metabolic encephalopathy Resolved Problems: No resolved hospital problems. Impression: 1. Altered mental status--unclear etiology, r/o CVA vs. Exac of Alzheimer's dementia. 2. ESRD on HD, TTS. 3. Diabetes type 2 on insulin. 4. Alzheimer's dementia. 5. HTN. 6. Schizophrenia. Plan: Chest x-ray--shows no acute findings. UA shows no evidence of infection. Ammonia level is normal. CT of the head did not show any acute findings. MRI of the brain pending. Thiamine supplemented. Will check with family to see if she is back to baseline. Will review MRI and give further orders. Prognosis--guarded. Nephrology consult requested for dialysis tomorrow. I discussed with the patient's daughter at home on the phone about all the test results etc.. Waiting for MRI. She said she will be here this evening to see if the mom is back to baseline. She told me that the patient always has some confusion especially with daytime because of the dementia so she is not surprised. However she will be here to see her mom and let us know how her condition is. DVT prophylaxis: Lovenox 30 Medical complexity/risk: Medium Voice recognition software used to dictate and transcribe this document. [employer] Plant Operator variances may occur. Despite proofreading, typographical errors may occur. Cheryl Slater MD 04/20/2024 2:47 PM * Leslie Shah, OT - 04/20/2024 9:39 AM CDT Occupational Therapy Patient Name: Sixto Chakraborty Date of : 1950 Date of Service: 04/20/2024 04/20/24 0939 General Chart Reviewed Yes Session Type Evaluation (Room 506. On RA) OT Received On 04/20/24 Safe Environment Arm band checked;Patient found sitting in chair;Session completed bedside Subjective Agreeable to Therapy Additional Pertinent History Admitted 04/19/24. 73-year-old female who presents to the ED with altered mental status. Daughter brought to ED after HD for further evaluation of her symptoms of graduallethargy and decreased responsiveness. PMHx: Alzheimers, ESRD on intermittent hemodialysis, receives dialysis Thursday//Thursday, type 2 diabetes on insulin therapy complicated by diabetic neuropathy, dementia, GERD, hypertension, schizophrenia Family/Caregiver Present No Occupational Therapy-Patient Goal discharge planning Current Functional Status OT Functional Mobility CGA to/from bathroom. OT Self Care Toileting/shannon-care with min assist for thorough hygiene. Dons socks with increased time and min assist. OT Cognition Alert and oriented x2 (name and hospital). Unable to state reason for admit. Very pleasant and cooperative. (h/o dementia) OT Communication Minimal verbalizations but able to communicate needs and wants and able to locate red button on remote for assistance. Precautions Precautions Bed/Chair Alarm;Fall risk Precaution Comments dementia Home Living Type of Home House Home Mobility Equipment-Currently Using None Additional Comments questionable historian Prior Function Lives With Daughter Pain Assessment Pain Assessment Lo-Infante FACES Lo-Infante FACES Pain Rating 0 Safe Environment End of Therapy Session Safe Environment End of Therapy Session Patient left in chair;Chair alarm in place and activated;RNnotified;Call light within reach Assessment Problem List Decreased cognition;Decreased functional mobility;Decreased ADL independence;DecreasedIADL independence Plan Plan Plan of care initiated Recommendation/Plan OT Recommendation Home with 24 hour supervision OT Frequency during current admission 2-3x/wk Treatment/Interventions during current admission ADL/IADL retraining;Functional mobility training;Therapeutic activity OT - Next Appointment 05/04/24 OT Evaluation Complete Yes OT Time Calculation OT Start Time 938 OT Stop Time 951 OT Time Calculation (min) 13 min Multi-Disciplinary Problems (from Occupational Therapy) Active Problems Problem: OT Misc Start Date: 04/20/24 Goal Start Date Expected End Date End Date OT STG - Misc 1 04/20/24 04/27/24 -- Goal Details: Bed mobility with SBA/independent Goal Start Date Expected End Date End Date OT STG - Mis 2 04/20/24 04/27/24 -- Goal Details: All aspects of toileting with SBA Goal Start Date Expected End Date End Date OT STG - Mis 3 04/20/24 04/27/24 -- Goal Details: Functional mobility for ADL management and item retrieval with SBA Goal Start Date Expected End Date End Date OT STG - Mis 4 04/20/24 04/27/24 -- Goal Details: Grooming at sink with SBA * Marilyn Adan, PT - 04/20/2024 9:35 AM CDT Physical Therapy 04/20/24 0935 General Chart Reviewed Yes Session Type Evaluation PT Received On 04/20/24 Safe Environment Arm band checked;Gait belt utilized for all out of bed mobility;Patient found sitting in chair Subjective Agreeable to Therapy Additional Pertinent History Patient is a 73-year-old female with past medical history of ESRD on intermittent hemodialysis, receives dialysis Thursday//Thursday, type 2 diabetes on insulin therapy complicated by diabetic neuropathy, dementia, GERD, hypertension, schizophrenia who presents to the ED with altered mental status and is being admitted for further evaluation of the same. Family/Caregiver Present No Physical Therapy-Patient Goal Pt hopes to disch home w her daughter. Precautions Precautions Bed/Chair Alarm;Fall risk Precaution Comments poor historian Home Living Type of Home House Home Layout One level Home Access Level entry Additional Comments questionable historian Prior Function Lives With Daughter Receives Help From Family Driving No Mode of Transportation Driven by others Vocational/Occupation Retired Fall within the last 6 months No Fall within the last 6 months comment denies any falls Pain Assessment Pain Assessment Lo-Infante FACES Lo-Infante FACES Pain Rating 0 Cognition Orientation Oriented to person;Oriented to place Transfer 1 Transfer From 1 Sit Transfer Type 1 To and from Transfer to 1 Stand Technique 1 Sit to stand;Stand to sit Transfer Device 1 Hand held assist Transfer Level of Assistance 1 Contact Guard Assist Ambulation 1 Distance (ft) 1 30 Surface 1 Level tile Device 1 Hand held assist Assistance 1 Contact Guard Assist Gait: Requires assist with 1 Maintaining balance Gait: Requires verbal cues to 1 Improve upright posture Gait Deviations 1 Brigid - decreased;Posture - flexed;Step length - decreased Safe Environment End of Therapy Session Safe Environment End of Therapy Session Patient left in chair;Chair alarm in place and activated;RNnotified;Call light within reach;Overbed table within reach Assessment Prognosis Good Problem List Gait deviations;Decreased strength;Decreased endurance Plan Plan Plan of care initiated Recommendation/Plan PT Recommendation/Plan (S) Home with 24 hour supervision PT Frequency during current admission 3-5x/wk Treatment/Interventions during current admission Balance Training;Endurance training;Functional transfer training;Gait training;Strengthening PT - Next Appointment 05/04/24 PT Evaluation Complete Yes PT Time Calculation PT Start Time 0935 PT Stop Time 0950 PT Time Calculation (min) 15 min Multi-Disciplinary Problems (from Physical Therapy) Active Problems Problem: Mobility Start Date: 04/20/24 Goal Start Date Expected End Date End Date LTG - Patient will demonstrate functional mobility with the following level of assist: 04/20/24 05/04/24 -- Goal Details: Pt will transfer and ambulate w walker, 75 feet, sba of 1. Intermodal Truck Driver Services Utilized: NO Educated the patient to the role of physical therapy, plan of care, goals of therapy, rationale forprogressing mobility. Patient was left with all needs met and equipment intact. Mobility and ADL status posted at bedsideand within medical record. documented in this encounter H&P Notes * Mir Dial, DO - 04/19/2024 10:58 PM CDT History and Physical Subjective Patient is a 73 y.o. female with chief complaint of altered mental status. HPI: Patient is a 73-year-old female with past medical history of ESRD on intermittent hemodialysis, receives dialysis Thursday//Thursday, type 2 diabetes on insulin therapy complicated by diabeticneuropathy, dementia, GERD, hypertension, schizophrenia who presents to the ED with altered mental status and is being admitted for further evaluation of the same. Due to patient's dementia, history from the patient was supplemented by discussion with the ED provider and with chart review. The patient's daughter helped the patient get up this morning and assisted her and going to dialysis. According to the ED, the daughter reported that the patient was already not acting like herself this morning, but that she was able to make it to her dialysis appointmentwithout issue. She underwent dialysis, however after her session was completed she became very sleepy upon arriving back home and seemed to be hard to arouse. Therefore she was brought by her daughter to our ED for further evaluation of her symptoms. Patient does not recall having any fevers, upperrespiratory symptoms, nausea, vomiting, diarrhea or any pain. Only endorses feeling lightheaded anddizzy, like she could possibly pass out. No syncope reported. In the ED, vitals were stable without fever, and workup was obtained and is summarized as below. Other than a mild elevation in her WBC, no obvious etiology of altered mental status has been found yet. COVID-19 and influenza testing along with blood cultures have been obtained and are currently pending. Patient was admitted due to her change in mental status for further evaluation. Past Medical History: Diagnosis Date Anemia Arthritis CHF (congestive heart failure) ([facility]/HCC) (HCC) CKD (chronic kidney disease) stage V requiring chronic dialysis (HCC) Dementia (HCC) Depression Diabetic neuropathy (HCC) End stage chronic kidney disease (CMS/HCC) (HCC) hemodialysis T Thu GERD (gastroesophageal reflux disease) HL (hearing loss) Hyperlipidemia Hypertension Movement disorder Osteomyelitis (HCC) Rotator cuff tear, left Schizophrenia (HCC) Type 2 diabetes mellitus (HCC) Past Surgical History: Procedure Laterality Date SECTION Right right foot COLONOSCOPY EYE SURGERY cataracts FLUORO GUIDED INJECTION SHOULDER LEFT Left 12/18/2023 TOE AMPUTATION Right 01/06/2020 4th toe amp/ foot debridement/ Dr. Anat Pelayo TUNNELED LINE PLACEMENT > 5 YEARS N/A 10/15/2023 (Not in a hospital admission) No Known Allergies Social History Tobacco Use Smoking status: Never Passive exposure: Never Smokeless tobacco: Never Substance and Sexual Activity Drug use: Never Sexual activity: Not Currently Partners: Male Alcohol Use: Not At Risk (02/24/2024) AUDIT-C Frequency of Alcohol Consumption: Never Average Number of Drinks: Patient does not drink Frequency of Binge Drinking: Never Family History Problem Relation Age of Onset Diabetes Mother Heart disease Mother Kidney disease Mother Stomach cancer Father Alcohol abuse Father Diabetes Sister Diabetes Sister Diabetes Brother Review of Systems: Review of systems not obtained due to: mental status Objective Vitals: Arrival Vitals Temp 04/19/24 1704 36.4 ??C (97.6 ??F) Pulse 04/19/24 1648 80 Resp 04/19/24 1656 14 BP 04/19/24 1648 (!) 174/92 SpO2 04/19/24 1648 99 % Temp src 04/19/24 1704 Axillary Heart Rate Source -- Patient Position -- BP Location -- FiO2 (%) -- 24hr Min/Max: Temp Min: 36.4 ??C (97.6 ??F) Max: 36.4 ??C (97.6 ??F) Pulse Min: 70 Max: 83 BP Min: 146/91 Max: 176/76 Resp Min: 13 Max: 16 SpO2 Min: 96 % Max: 99 % Most Recent : Vitals: 04/19/24 2230 BP: Pulse: 70 Resp: 13 Temp: SpO2: 96% No intake/output data recorded. No intake/output data recorded. Physical exam: General: appears to be in NAD, very pleasant Heart: regular rate and rhythm, no m/r/g Lungs: CTAB, no rhonchi/wheezes Abdomen: soft, non-tender and non-distended, BS + Extremities: no significant pitting edema b/l Neuro: Has resting tremor in her left hand and upper arm along with her left foot Lab/Radiology/Diagnostic Review: Creatinine at 2.30 in the setting of her ESRD, ALT mildly elevated to 50 and alk-phos elevated to 133. Troponin trend is unremarkable. WBC mildly elevated to 11.2, stable anemia with hemoglobin of 9.9. Blood cultures x2 obtained and are in process, UA is unconcerning for infection. Chest x-ray is negative for acute process. Assessment /Plan Principal Problem: Metabolic encephalopathy 1. Altered mental status, uncertain if acute metabolic encephalopathy versus exacerbation of her dementia -So far, extensive workup in the ED is unremarkable for cause. There is mild WBC elevation, but patient has no fever nor any infectious symptoms, and chest x- ray/UA are unremarkable for infection -Blood cultures x2 have been obtained, which we will continue to follow for growth. Holding antibiotics at this time until infectious source has been found or patient develops fever or other symptomsof infection -Patient also has resting tremor in her left hand/foot, of uncertain duration, uncertain if patientmay also have an ongoing neurologic process such as a parkinsonian syndrome. Patient may benefit from Neurology consultation for further workup and evaluation of this, in case this is contributing. -Continue to monitor mental status 2. ESRD, on Thursday//Thursday intermittent hemodialysis -Patient will require renal team consultation in the a.m. for management of her maintenance hemodialysis. While symptoms were exacerbated with dialysis, per history obtained by the daughter patient was exhibiting some symptoms prior to her dialysis appointment. -Continuing sucroferric tablets for phosphate binder from home 3. Mild transaminitis -Of uncertain significance, low-level -Previous abdominal imaging with CT in January of 2024 showed normal appearing liver, gallbladder and bile ducts -Continue to monitor in the a.m., and if LFTs remain elevated patient may benefit from right upper quadrant ultrasound for further investigation 4. Type 2 diabetes on insulin therapy, complicated by diabetic neuropathy -Writing for basal/bolus insulin along with SSI as needed -Carbohydrate controlled diet documented in this encounter Procedure Notes * Becky Gold, PULVERIZING AND SIFTING OPERATOR - 04/22/2024 12:10 PM CDTAssociated Order(s): PULVERIZING AND SIFTING OPERATOR EVALUATE AND TREAT VIDEOFLUOROSCOPIC SWALLOW STUDY [facility] Inpatient Speech-Language Pathology Modified Barium Swallow Study PRIOR MEDICAL HISTORY/GENERAL INFORMATION Patient Name/: Sixto Chakraborty / 1950 Age/Sex: 73 y.o. / female Room/Date of Service: @ROOM@ / 04/22/2024 Admit Date/Primary Hospital Diagnosis: 04/19/2024 / Metabolic encephalopathy [G93.41] Debility [R53.81] Weakness [R53.1] Mild protein-calorie malnutrition (CMS/HCC) (HCC) [E44.1] Altered mental status, unspecified altered mental status type [R41.82] Referring Provider: Cheryl Slater MD HPI: Sixto Chakraborty is a 73 y.o. female with past medical history of ESRD on intermittent hemodialysis, receives dialysis Thursday//Thursday, type 2 diabetes on insulin therapy complicated by diabetic neuropathy, dementia, GERD, hypertension, schizophrenia who presents to the ED with alteredmental status. Patient was referred to speech pathology [...] Liquids Recommendations: Thin/regular Recommended Form of Medications: (pt may benefit from cutting large pills or crushing and giving inpuree) Compensatory Strategies/Modifications: Alternate solids and liquids Postural Recommendations: Upright 90 degrees Assistance: Intermittent supervision Assessment Purpose and Procedure of Modified Barium Swallow Study: Completed to assess the function, safety, and [...] the time of the exam. Standard procedure isin lateral view at 90 degrees. A/P views [...] Room air History of Intubation: No Tracheostomy: (no) Behavior/Cognition: Alert, Cooperative, Pleasant mood Vision: Functional [...] Sensation: Within Functional Limits Dentition: Adequate Gag: (DNT) Consistencies Administered: Consistencies Administered: Thin liquids, Stites thickened liquids, Honey thickened liquids, Purees, Solids [...] from pharynx and required additional liquid swallow Puree Honey Stites Thin Solids Oral Management: slow and prolonged manipulation; delayed [...] residue collection on oral structures; Swallow Onset: forward hyoid movement begins as bolus head has overflowed vallecular space but has not reached pyriforms; forward hyoid movement begins as bolus head is within pyriform space; forwardhyoid movement begins as bolus head is within [...] or contrast within laryngeal vestibule; Pharyngeal Management: in lateral view, pharyngeal stripping wave is present and complete; Bolus Passage into Esophagus: complete distention and complete duration of PES; no obstruction of bolus flow; Pharyngeal Residuals after the 1st swallow: complete pharyngeal clearance Penetration: no penetration occurs trace volume penetration occurs during the swallow reaching <1/2 the length of laryngeal vestibule; some is ejected during the swallow, independent light contactthroat clear ejects remaining no penetration occurs Aspiration: no aspiration occurs Education Education: Patient has been educated on the swallow study results, diet recommendations, aspirationprecautions, and plan of care. Education completed via verbal explanation. Patient may require ongoing reinforcement. Plan Recommended Follow-Up: (d/c skilled ST after evaluation on this date) PULVERIZING AND SIFTING OPERATOR Frequency: Discharge from this Service Next Planned Visit: (n/a) Discharge Recommendations: Defer at this time Barriers to Discharge: defer to medical team Discharge Summary Statement If this is the last speech therapy visit, this serves as the discharge summary. Becky Gold M.S. [facility]-PULVERIZING AND SIFTING OPERATOR Goals established: 04/22/24 PULVERIZING AND SIFTING OPERATOR Care Plan Problems/Goals None Intermodal Truck Driver Services Utilized: NO This patient was identified by name and on this visit. PULVERIZING AND SIFTING OPERATOR Start Time: 1145 PULVERIZING AND SIFTING OPERATOR Stop Time: 1210 PULVERIZING AND SIFTING OPERATOR Time Calculation (min): 25 min * Stephanie Cool, DO - 04/21/2024 4:36 PM CDT Procedures Routine EEG Report Patient Name: Sixto Chakrab[facility]y [facility] Medical Record Number (MRN): [id number] [facility] Record: [id number] Date of (): 1950 EEG Date: 04/19/2024 Ordering Provider: Bryon CC: Cherelle Corcoran Start Time: 1:30 p.m. End Time: 2:00 p.m. Introduction: Ms. Chakraborty is a 73 y.o. female with a history of confusion. EEG was performed to evaluate for seizures. This is a 32 channel EEG recording acquired on a [employer] EEG-1200 acquisition system. Scalp electrodes were placed according to the international 10-20 System. The analog EEG was filtered from 1-70 Hz and digitally sampled at 200 Hz. The record was then reformatted for review in bipolar, transverse and referential montages. EEG Description: The awake background included a polyfrequency, five to eight Hz posterior rhythm which attenuated with eye opening and activity. During drowsiness, identified by ocular signs and alpha attenuation, there was intermittent, diffuse, asynchronous theta activity admixed with 2-4 Hz polymorphic frontotemporal delta activity. Hyperventilation was not performed. Photic strobe stimulation elicited no abnormalities. There were no focal, lateralized or epileptiform abnormalities. There is some disorganization of the background rhythm. Interpretation: This EEG is abnormal for the patient and consistent with a state of encephalopathy. The source of this should be determined clinically. documented in this encounter Consult Notes * Phuong Bueno MD - 04/22/2024 1:41 PM CDTAssociated Order(s): IP CONSULT TO NEUROLOGY; IP CONSULT TO NEUROLOGY Images from the original note were not included. [facility] Neurology Consultation Date of admission: 04/19/2024 Requesting Provider: Cheryl Slater MD Reason for Consult: admitted for confusion. Resting tremors / Like pill rolling tremor. Dementia , Schizophrenia, Had an episodel where whe was frozen with eyes rolling up. History of Present Illness: This is 73-year-old female with a history of schizophrenia, type 2 diabetes, end-stage kidney disease on dialysis, congestive heart failure, neurology consulted for initially for resting tremors, anddementia, and re consulted again for an episode where she was frozen with eyes rolling up during dialysis, given a bolus of fluid, and patient regained consciousness, and at the time of dialysis patient noted to be bradycardic. About resting tremors, patient has noted that she has had resting tremor but can not tell me when this started, of note patient with schizophrenia on risperidone. She denies any headaches, vision changes, numbness. MRI of the brain was obtained with no acute changes, EEGwas obtained with no seizures only encephalopathy on EEG. Past Medical History: Diagnosis Date Anemia Arthritis CHF (congestive heart failure) (CMS/[facility]) ([facility]) CKD (chronic kidney disease) stage V requiring chronic dialysis ([facility]) Dementia ([facility]) Depression Diabetic neuropathy ([facility]) End stage chronic kidney disease (CMS/HCC) ([facility]) hemodialysis T Thu GERD (gastroesophageal reflux disease) HL (hearing loss) Hyperlipidemia Hypertension Movement disorder Osteomyelitis ([facility]) Rotator cuff tear, left Schizophrenia ([facility]) Type 2 diabetes mellitus ([facility]) Past Surgical History: Procedure Laterality Date SECTION Right right foot COLONOSCOPY EYE SURGERY cataracts FLUORO GUIDED INJECTION SHOULDER LEFT Left 12/18/2023 TOE AMPUTATION Right 01/06/2020 4th toe amp/ foot debridement/ Dr. Anat Pelayo TUNNELED LINE PLACEMENT > 5 YEARS N/A 10/15/2023 HOME MEDICATIONS : acetaminophen 500 mg capsule aspirin 81 mg chewable tablet atorvastatin (LIPITOR) 40 mg tablet benztropine (COGENTIN) 2 mg tablet blood-glucose sensor (FreeStyle Madhav 3 Sensor) device carvediloL (COREG) 6.25 mg tablet docusate sodium (COLACE) 100 mg capsule FeroSuL 325 mg (65 mg iron) tablet flash glucose scanning reader mis flash glucose sensor (FreeStyle Madhav 2 Sensor) kit fluticasone propionate (FLONASE) 50 mcg/actuation nasal spray FreeStyle Madhav 3 [place] misc gabapentin (NEURONTIN) 100 mg capsule hydrALAZINE (APRESOLINE) 25 mg tablet insulin glargine 100 unit/mL (3 mL) pen for injection insulin lispro (HumaLOG, ADMELOG) 100 unit/mL vial for injection lidocaine (ASPERCREME) 4 % adhesive patch,medicated NIFEdipine (NIFEdipine CC) 60 mg [address] (PROTONIX) 40 mg EC tablet pen needle, diabetic (Easy Touch) 32 gauge x 5/32 needle polyethylene glycol (MIRALAX) 17 gram/dose bulk powder risperiDONE (RisperDAL) 2 mg tablet sucroferric oxyhydroxide 500 mg tablet,chewable benzonatate (TESSALON) 100 mg capsule sucralfate (CARAFATE) 1 gram tablet traMADoL (ULTRAM) 25 mg tablet omeprazole (PriLOSEC) 20 mg capsule Current Facility-Administered Medications Medication Dose Route Frequency Provider Last Rate Last Admin acetaminophen (TYLENOL) tablet 650 mg 650 mg oral Q4H PRN Mir Dial DO 650mg at 04/22/24 1124 aspirin chewable tablet 81 mg 81 mg oral Daily Mir Dial DO 81 mg at 04/22/24928 atorvastatin (LIPITOR) tablet 40 mg 40 mg oral Nightly Mir Dial DO 40 mg at 04/21/242055 benztropine (COGENTIN) tablet 2 mg 2 mg oral Nightly Mir Dial DO 2 mg at 04/21/242055 [Held by Provider] carvediloL (COREG) tablet 6.25 mg 6.25 mg oral BID with meals (bkfst, dinner) Mir Dial DO 6.25 mg at 04/20/24 171 dextrose (GLUTOSE) 40 % gel 15 g 15 g oral Q15 Min PRN Mir Dial DO Or dextrose (D10W) 10% bolus 250 mL 250 mL intravenous Q15 Min PRN Mir Dial DO [Held by Provider] enoxaparin (LOVENOX) syringe 30 mg 30 mg subcutaneous Daily- 2100 Mir Dial DO 30 mg at 04/20/242047 ferrous sulfate tablet 325 mg 325 mg oral Daily with breakfast Mir Dial DO 325 mg at 04/22/24 09 glucagon injection 1 mg 1 mg intramuscular Q30 Min PRN Mir Dial DO hydrALAZINE (APRESOLINE) tablet 25 mg 25 mg oral BID Mir Dial DO 25 mg at106/22/23 09 insulin glargine (LANTUS, SEMGLEE) 100 unit/mL injection 9 Units 0.15 Units/kg subcutaneous NightlyBoltMir herrera DO 9 Units at 04/21/242055 insulin lispro (HumaLOG, ADMELOG) 100 unit/mL injection 0-4 Units 0-4 Units subcutaneous Nightly Mir Dial, DO 1 Units at 04/20/242048 insulin lispro (HumaLOG, ADMELOG) 100 unit/mL injection 0-5 Units 0-5 Units subcutaneous TID with meals Mir Dial, DO 2 Units at 04/22/24 124 insulin lispro (HumaLOG, ADMELOG) 100 unit/mL injection 3 Units 0.05 Units/kg subcutaneous TID withmeals Mir Dial, DO 3 Units at 04/22/24 124 NIFEdipine (PROCARDIA XL/ADALAT CC) extended release tablet 90 mg 90 mg oral Daily Mir Dial DO 90 mg at 04/22/24928 ondansetron ODT (ZOFRAN-ODT) disintegrating tablet 4 mg 4 mg oral Q6H PRN Mir Dial DO 4 mg at 04/22/24 1124 Or ondansetron (ZOFRAN) injection 4 mg 4 mg intravenous Q6H PRN Mir Dial DO pantoprazole DR (PROTONIX) extended release tablet 40 mg 40 mg oral BID Mir Dial DO 40 mg at 04/22/24928 polyethylene glycol (MIRALAX) packet 17 g 17 g oral Daily PRN Mir Dial DO ramelteon (ROZEREM) tablet 8 mg 8 mg oral Nightly PRN Mir Dial DO REQUEST FOR PATIENT'S HOME SUPPLY-sucroferric oxyhydroxide tablet,chewable 0.5 tablet 0.5 tablet oral TID Mir Dial DO risperiDONE (RisperDAL) tablet 2 mg 2 mg oral Nightly Mir Dial DO 2 mg at12055 senna-docusate (PERICOLACE) 8.6-50 mg per tablet 1 tablet 1 tablet oral BID PRN Mir Dial DO sucralfate (CARAFATE) tablet 1 g 1 g oral QID Mir Dial, 1 g at No Known Allergies Social History Tobacco Use Smoking status: Never Passive exposure: Never Smokeless tobacco: Never Substance and Sexual Activity Drug use: Never Sexual activity: Not Currently Partners: Male Alcohol Use: Not At Risk (02/24/2024) AUDIT-C Frequency of Alcohol Consumption: Never Average Number of Drinks: Patient does not drink Frequency of Binge Drinking: Never Family History Problem Relation Age of Onset Diabetes Mother Heart disease Mother Kidney disease Mother Stomach cancer Father Alcohol abuse Father Diabetes Sister Diabetes Sister Diabetes Brother Review of Systems: negative Vitals: 24 hr Min/Max: Temp Min: 36.6 ??C (97.9 ??F) Max: 36.9 ??C (98.4 ??F) Pulse Min: 63 Max: 79 BP Min: 116/58 Max: 170/62 Resp Min: 18 Max: 22 SpO2 Min: 92 % Max: 100 % Most Recent: Vitals: 04/22/24 0817 BP: Pulse: 79 Resp: Temp: SpO2: Height: 157.5 cm (5' 2 ) Weight: 65 kg (143 lb 4.8 oz) BMI (Calculated): 26.2 I/O last 2 completed shifts: In: 600 [I.V.:200; Other:400] Out: 950 [Other:950] I/O this shift: In: 600 [P.O.:600] Out: - Physical Exam General: GEN: NAD, pleasant, cooperative CHEST: No signs of resp distress, on room air Cortical function: Awake, alert, follows commands, oriented to person , says she is in the hospital but she does not know which hospital she is in, not able to tell me what year she is or month , the current season Language: fluent, coherent, repition and naming intact. No dysarthria. There is some soft voice Unable to recall 3 objects Cranial Nerves: Visual Ferro are full to confrontation Pupils equally reactive to light, full EOM, no ptosis or nystagmus Lt facial sensation intact bilaterally, hearing intact to finger rub bilaterally Normal facial strength to eye closure and cheek puff Palate symmetric, symmetric shoulder shrug, normal tongue protrusion Motor: Abnormal movements: there is bilateral resting tremor lowering peel like more pronounced in the right hand. Opening and closing hand slow on the left hand, same as stopping the right foot Bulk: reduced Tone: there is cogwheeling more pronounced on the left which becomes more pronounced with augmentation Strength: 5/5 Sensory Pinprick and light touch gradient: intact Cerebellar: FNF intact bilaterally Gait: patient walks with a stooped posture, smart steps, turns on block, with occasional possible shuffling Lab/Radiology/Diagnostic Review: Laboratory review: Chemistry CMP: Lab Results Component Value Date ALBUMIN 3.7 04/22/2024 BUNSER 53 (H) 04/22/2024 CALCIUM 9.6 04/22/2024 CO2 21 (L) 04/22/2024 CHLORIDE 98 04/22/2024 CREATININE 4.70 (H) 04/22/2024 GLUCOSE 226 (H) 04/22/2024 GLUCOSE 134 04/22/2024 POTASSIUM 4.6 04/22/2024 SODIUM 137 04/22/2024 BILITOT 0.2 04/22/2024 PROT 7.7 04/22/2024 ALT 21 04/22/2024 AST 14 04/22/2024 ALKPHOS 102 04/22/2024 , CBC: Lab Results Component Value Date WBC 8.7 04/22/2024 RBC 3.31 (L) 04/22/2024 HGB 10.0 (L) 04/22/2024 HCT 31.0 (L) 04/22/2024 MCV 93.7 04/22/2024 MCH 30.2 04/22/2024 MCHC 32.3 04/22/2024 RDWCV 14.4 04/22/2024 RDWSD 49.1 (H) 04/22/2024 MPV 11.2 04/22/2024 NRBCABS 0.00 04/22/2024 , Coags: Lab Results Component Value Date PT 13.5 04/19/2024 APTT 64 (H) 04/19/2024 INR 1.0 04/19/2024 , Lipids: No results found for: CHOL , CHLPL , HDL , LDLCALC , TRIG , CHOLHDL , and Cardiac Enzymes: Lab Results Component Value Date TROPTHS 60 (H) 04/21/2024 Additional (if available): Lab Results Component Value Date HGBA1C 8.2 (H) 10/08/2023 , Lab Results Component Value Date LDLCALC 50 10/30/2023 , Lab Results Component Value Date TSH 2.25 04/21/2024 Imaging Results for orders placed or performed during the hospital encounter of 04/19/24 MRI Brain WO Contrast Narrative EXAM DESCRIPTION: MRI BRAIN WO CONTRAST REASON FOR STUDY: Mental status change, unknown cause, TIA Vs. CVA, ESRD on HD, diabetic, dementia, Lewe Body Dementia ??? Mental status change, unknown cause; TIA Vs. CVA, ESRD on HD, diabetic, dementia, Lewe Body Dementia ??? TECHNIQUE: Multiplanar imaging includes non-contrasted T1, T2, FLAIR, and diffusion with ADC map sequences. Additional sequence(s) sensitive to blood products. Images stored on PACS. COMPARISON: Multiple previous CT head examinations with the most recent dated 04/19/2024. MRI brain dated 10/30/2023. FINDINGS: No diffusion restriction to suggest acute/recent infarction. There is no definite parenchymal susceptibility signal to indicate blood degradation products within the confines of the motion limited GRE sequence. There is mild diffuse parenchymal volume loss. No hydrocephalus. The basilar cisterns are maintained. The right thalamic chronic lacunar infarction is new when compared to the previous MRI brain dated 10/30/2023. Additional small chronic infarctions in the bilateral morris radiata, basal ganglia and left thalamus as seen previously. Elsewhere the subcortical and periventricular white matter T2/FLAIR hyperintense signal in the bilateral cerebral hemispheres is nonspecific but compatible with chronic microvascular ischemic type change in a patient of this age. More pronounced T2/FLAIR hyperintense signal in the chago is also similar and could be more severe chronic microvascular ischemic type process. Previous bilateral cataract eye surgeries. The imaged paranasal sinuses are predominantly clear. Bilateral mastoid T2 hyperintense fluid [...] Jose Duvall D.O. AP: CLEMENTE Report ID: [id number] Reading Location: [place] [address] CT Head WO Contrast Narrative EXAM DESCRIPTION: CT HEAD WO CONTRAST REASON FOR STUDY: Acute altered mental status. Rapid called on this patient. TECHNIQUE: Axial images acquired through the brain without intravenous contrast. Images stored on PACS. Automated exposure control was used as a dose optimization technique for this examination. COMPARISON: 04/19/2024. Brain MRI 04/20/2024. FINDINGS: BRAIN: No acute intraparenchymal hemorrhage, cerebral edema, hydrocephalus, mass, or mass effect. EXTRA-AXIAL SPACES: No [...] Robert Fay M.D. CH: KECIA Report ID: [id number] Reading Location: [place] [address] Results for orders placed or performed during the hospital encounter of 12/19/23 EEG Narrative Wilner Buckley MD 12/22/2023 3:01 PM Reason for exam: passing out during dialysis Technical: This is a digitally recorded electroencephalogram. It was just over 30 minutes long. The international 10-20 electrode placement system is used for scalp electrode placement. Eighteen channels of scalp EEG are recorded. One channel was used for EOG. Another channel was used for ECG. The data are stored digitally and reviewed in reformatted montages for optimal display. Background: 6-7 hertz theta activity was seen bilaterally. It was relatively symmetric. It was not particularly well reactive to eye opening or closure. Overall recording was somewhat disorganized. Frequently seen was delta range slowing throughout. Description: No focal slowing was seen. No seizure like activity was observed during this recording. Patient entered into periods of drowsiness and light sleep. Hyperventilation was not performed due to patient's clinical condition. Photic stimulation was performed without any additional abnormalities. Impression: Abnormal EEG. Generalized slowing suggests diffuse cerebral dysfunction, as can be seen in encephalopathy due to various etiologies. No focal slowing no seizure like activity was observed. Correlation with clinical findings is needed. *Note: Due to a large number of results and/or encounters for the requested time period, some results have not been displayed. A complete set of results can be found in Results Review. Results for orders placed or performed during the hospital encounter of 04/19/24 MRI Brain WO Contrast Narrative EXAM DESCRIPTION: MRI BRAIN WO CONTRAST REASON FOR STUDY: Mental status change, unknown cause, TIA Vs. CVA, ESRD on HD, diabetic, dementia, Lewe Body Dementia ??? Mental status change, unknown cause; TIA Vs. CVA, ESRD on HD, diabetic, dementia, Lewe Body Dementia ??? TECHNIQUE: Multiplanar imaging includes non-contrasted T1, T2, FLAIR, and diffusion with ADC map sequences. Additional sequence(s) sensitive to blood products. Images stored on PACS. COMPARISON: Multiple previous CT head examinations with the most recent dated 04/19/2024. MRI brain dated 10/30/2023. FINDINGS: No diffusion restriction to suggest acute/recent infarction. There is no definite parenchymal susceptibility signal to indicate blood degradation products within the confines of the motion limited GRE sequence. There is mild diffuse parenchymal volume loss. No hydrocephalus. The basilar cisterns are maintained. The right thalamic chronic lacunar infarction is new when compared to the previous MRI brain dated 10/30/2023. Additional small chronic infarctions in the bilateral morris radiata, basal ganglia and left thalamus as seen previously. Elsewhere the subcortical and periventricular white matter T2/FLAIR hyperintense signal in the bilateral cerebral hemispheres is nonspecific but compatible with chronic microvascular ischemic type change in a patient of this age. More pronounced T2/FLAIR hyperintense signal in the chago is also similar and could be more severe chronic microvascular ischemic type process. Previous bilateral cataract eye surgeries. The imaged paranasal sinuses are predominantly clear. Bilateral mastoid T2 hyperintense fluid [...] Jose Duvall D.O. AP: CLEMENTE Report ID: [id number] Reading Location: [id number] CT Head WO Contrast Narrative EXAM DESCRIPTION: CT HEAD WO CONTRAST REASON FOR STUDY: Acute altered mental status. Rapid called on this patient. TECHNIQUE: Axial images acquired through the brain without intravenous contrast. Images stored on PACS. Automated exposure control was used as a dose optimization technique for this examination. COMPARISON: 04/19/2024. Brain MRI 04/20/2024. FINDINGS: BRAIN: No acute intraparenchymal hemorrhage, cerebral edema, hydrocephalus, mass, or mass effect. EXTRA-AXIAL SPACES: No [...] by Robert Fay M.D. CH: Report ID: [id number] Reading Location: [id number] Results for orders placed or performed during the hospital encounter of 12/19/23 EEG Narrative Wilner Buckley MD 12/22/2023 3:01 PM Reason for exam: passing out during dialysis Technical: This is a digitally recorded electroencephalogram. It was just over 30 minutes long. The international 10-20 electrode placement system is used for scalp electrode placement. Eighteen channels of scalp EEG are recorded. One channel was used for EOG. Another channel was used for ECG. The data are stored digitally and reviewed in reformatted montages for optimal display. Background: 6-7 hertz theta activity was seen bilaterally. It was relatively symmetric. It was not particularly well reactive to eye opening or closure. Overall recording was somewhat disorganized. Frequently seen was delta range slowing throughout. Description: No focal slowing was seen. No seizure like activity was observed during this recording. Patient entered into periods of drowsiness and light sleep. Hyperventilation was not performed due to patient's clinical condition. Photic stimulation was performed without any additional abnormalities. Impression: Abnormal EEG. Generalized slowing suggests diffuse cerebral dysfunction, as can be seen in encephalopathy due to various etiologies. No focal slowing no seizure like activity was observed. Correlation with clinical findings is needed. *Note: Due to a large number of results and/or encounters for the requested time period, some results have not been displayed. A complete set of results can be found in Results Review. Other studies: Assessment and Plan: # right thalamic chronic lacunar infarction is new when compared to the previous MRI brain dated 10/30/2023. # Parkinsonism but in the setting of being on antipsychotic for schizophrenia # schizophrenia # Memory Issues # Episode of loss of consciousness during EEG, in the setting of dialysis Plan - Episode of LOC probably related to dialysis, no further work up and continue to monitor - Parkinsonism probably related to antipsychotic, but can also have PD on the top on drug induced PD. Will need to follow up in Neurology clinic and can consider FUENTES scan - Memory issues: Evaluation as outpatient - Right thalamic stroke probably related to her stroke risk factors. Continue addressing, HTN, HLD,and DM2 - Continue aspirin for now - Will only obtain US carotid bilateral Phuong Bueno MD [facility] * Tucker Pitts MD - 04/21/2024 11:24 AM CDTAssociated Order(s): IP CONSULT TO NEPHROLOGY Nephrology Consult Reason for Consult: ESRD on HD< TTS, here for confusion, so far Medical work up is normal. Also has dementia and schizophrenia. MRI brain pending. Requesting Provider: Subjective Patient is a 73 y.o. female with chief complaint of altered mental status. HPI: 73-year-old female with ESRD on hemodialysis on a Thursday, , Thursday schedule under the care of Dr. Ryan at [facility] in [facility]. Also with underlying history of dementia and schizophrenia. Currently sitting up in no acute distress. She can not tell me where she is. She notes that she tolerated dialysis well. Denies any nausea or vomiting. Denies any shortness of breath. She denies anynausea, vomiting or diarrhea. She had dialysis today and tolerated well. 950 mL of total ultrafiltration and approximately 500 mL of net ultrafiltration was achieved. Past Medical History: Diagnosis Date Anemia Arthritis CHF (congestive heart failure) (CMS/HCC) (HCC) CKD (chronic kidney disease) stage V requiring chronic dialysis (HCC) Dementia (HCC) Depression Diabetic neuropathy (HCC) End stage chronic kidney disease (CMS/HCC) (HCC) hemodialysis T Sat GERD (gastroesophageal reflux disease) HL (hearing loss) Hyperlipidemia Hypertension Movement disorder Osteomyelitis (HCC) Rotator cuff tear, left Schizophrenia (HCC) Type 2 diabetes mellitus (HCC) Past Surgical History: Procedure Laterality Date SECTION Right right foot COLONOSCOPY EYE SURGERY cataracts FLUORO GUIDED INJECTION SHOULDER LEFT Left 12/18/2023 TOE AMPUTATION Right 01/06/2020 4th toe amp/ foot debridement/ Dr. Anat Pelayo TUNNELED LINE PLACEMENT > 5 YEARS N/A 10/15/2023 Medications Prior to Admission Medication Sig Dispense Refill Last Dose acetaminophen 500 mg capsule Take 2 capsules (1,000 mg total) by mouth 3 (three) times a day as needed for mild pain (pain scale 1-4) Past Week aspirin 81 mg chewable tablet Take 1 tablet (81 mg total) by mouth daily 90 tablet 1 04/19/2024 atorvastatin (LIPITOR) 40 mg tablet Take 1 tablet (40 mg total) by mouth nightly 30 tablet 11 04/18/2024 benztropine (COGENTIN) 2 mg tablet Take 1 tablet (2 mg total) by mouth daily (Patient taking differently: Take 1 tablet (2 mg total) by mouth nightly) 30 tablet 0 Past Week blood-glucose sensor (FreeStyle Madhav 3 Sensor) device Use for continuous glucose monitoring. Change sensor every 14 days 6 each 3 04/19/2024 carvediloL (COREG) 6.25 mg tablet Take 1 tablet (6.25 mg total) by mouth 2 (two) times a day with meals 180 tablet 3 04/18/2024 docusate sodium (COLACE) 100 mg capsule Take 1 capsule (100 mg total) by mouth every 12 (twelve) hours (Patient taking differently: Take 1 capsule (100 mg total) by mouth 2 (two) times a day as needed) 60 capsule 0 Past Month FeroSuL 325 mg (65 mg iron) tablet Take 1 tablet (325 mg total) by mouth daily with breakfast 90 tablet 1 04/19/2024 flash glucose scanning reader [facility] Use Madhav 3 reader to scan Madhav 3 sensor 1 each 0 04/19/2024 flash glucose sensor (FreeStyle Madhav 2 Sensor) kit Use to continually monitor glucose, change every 14 days 6 kit 3 04/19/2024 fluticasone propionate (FLONASE) 50 mcg/actuation nasal spray Administer 2 sprays into each nostrildaily as needed for rhinitis Past Month FreeStyle Madhav 3 [place] [facility] Use Madhav 3 reader to scan Madhav 3 sensor 04/19/2024 gabapentin (NEURONTIN) 100 mg capsule TAKE 1 CAPSULE BY MOUTH 3 TIMES PER WEEK AFTER HEMODIALYSIS 12 capsule 2 Past Week hydrALAZINE (APRESOLINE) 25 mg tablet Take 1 tablet (25 mg total) by mouth 2 (two) times a day 60 tablet 1 04/18/2024 insulin glargine 100 unit/mL (3 mL) pen for injection Inject 18 Units under the skin nightly 04/18/2024 insulin lispro (HumaLOG, ADMELOG) 100 unit/mL vial for injection Inject 4 Units under the skin 3 (three) times a day before meals Gets 4 units at baseline then 1 unit for every 50 over 150 04/19/2024 lidocaine (ASPERCREME) 4 % adhesive patch,medicated Place 1 patch on the skin daily as needed to lower back Past Week NIFEdipine (NIFEdipine CC) 60 mg 24 hr tablet TAKE 1 TABLET BY MOUTH DAILY (Patient taking differently: Take 90 mg by mouth daily) 90 tablet 0 04/18/[address] (PROTONIX) 40 mg EC tablet TAKE 1 TABLET(40 MG) BY MOUTH TWICE DAILY 180 tablet 0 04/19/2024 pen needle, diabetic (Easy Touch) 32 gauge x 5/32 needle USE DIRECTED FOUR TIMES DAILY 100 each3 04/19/2024 polyethylene glycol (MIRALAX) 17 gram/dose bulk powder Take 17 g by mouth daily as needed (Constipation) 595 g 0 Past Week risperiDONE (RisperDAL) 2 mg tablet Take 1 tablet (2 mg total) by mouth nightly 30 tablet 0 04/18/2024 sucroferric oxyhydroxide 500 mg tablet,chewable Take 0.5 tablets by mouth 3 (three) times a day 04/19/2024 benzonatate (TESSALON) 100 mg capsule Take 1 capsule (100 mg total) by mouth 3 (three) times a day as needed for cough 42 capsule 0 sucralfate (CARAFATE) 1 gram tablet Take 1 tablet (1 g total) by mouth 4 (four) times a day (Patient taking differently: Take 1 tablet (1 g total) by mouth 4 (four) times a day Does not take consistently) 120 tablet 1 traMADoL (ULTRAM) 25 mg tablet Take 1 tablet (25 mg total) by mouth every 8 (eight) hours as neededfor pain 90 tablet 0 No Known Allergies Social History Tobacco Use Smoking status: Never Passive exposure: Never Smokeless tobacco: Never Substance and Sexual Activity Drug use: Never Sexual activity: Not Currently Partners: Male Alcohol Use: Not At Risk (02/24/2024) AUDIT-C Frequency of Alcohol Consumption: Never Average Number of Drinks: Patient does not drink Frequency of Binge Drinking: Never Family History Problem Relation Age of Onset Diabetes Mother Heart disease Mother Kidney disease Mother Stomach cancer Father Alcohol abuse Father Diabetes Sister Diabetes Sister Diabetes Brother Current Medications: Scheduled Meds:aspirin, 81 mg, oral, Daily atorvastatin, 40 mg, oral, Nightly benztropine, 2 mg, oral, Nightly [Held by Provider] carvediloL, 6.25 mg, oral, BID with meals (bkfst, dinner) enoxaparin, 30 mg, subcutaneous, Daily-2100 ferrous sulfate, 325 mg, oral, Daily with breakfast heparin, 1.5-6.9 mL, intra-catheter, Once heparin, 500 Units, dialysis circuit, Q1H hydrALAZINE, 25 mg, oral, BID insulin glargine, 0.15 Units/kg, subcutaneous, Nightly insulin lispro, 0-4 Units, subcutaneous, Nightly insulin lispro, 0-5 Units, subcutaneous, TID with meals insulin lispro, 0.05 Units/kg, subcutaneous, TID with meals NIFEdipine, 90 mg, oral, Daily pantoprazole DR, 40 mg, oral, BID sucroferric oxyhydroxide, 0.5 tablet, oral, TID risperiDONE, 2 mg, oral, Nightly sucralfate, 1 g, oral, QID thiamine, 500 mg, oral, Daily Continuous Infusions: PRN Meds:. acetaminophen dextrose OR dextrose glucagon ondansetron ODT OR ondansetron polyethylene glycol ramelteon senna-docusate sodium chloride 0.9% Family History: No hereditary kidney disease in the family Review of systems Negative except as per the HPI Objective Vitals: 24hr Min/Max: Temp Min: 36.7 ??C (98 ??F) Max: 37.2 ??C (99 ??F) Pulse Min: 58 Max: 78 BP Min: 116/54 Max: 147/69 Resp Min: 18 Max: 22 SpO2 Min: 95 % Max: 98 % Most Recent: Vitals: 04/21/24 0837 BP: 116/54 Pulse: 69 Resp: 18 Temp: 36.7 ??C (98 ??F) SpO2: I/O last 2 completed shifts: In: - Out: 350 [Urine:350] No intake/output data recorded. Physical Exam: Constitutional: alert and oriented. Appears well-developed and well-nourished, in no distress. Elderly appearing Head: Normocephalic. Eyes: No icterus, extraocular movements normal Neck: Neck supple. Cardiovascular: Normal rate and regular rhythm. No murmur heard. Pulmonary/Chest: Breath sounds normal. Abdominal: Soft. Musculoskeletal: exhibits no edema. Neurological: alert and moves all 4 limbs. Skin: No rashes Tunneled hemodialysis Lab/Radiology/Diagnostic Review: I have reviewed all relevant laboratory and imaging results and found ESRD leukocytosis Additional Labs: Recent Labs Lab Units 04/21/24 1032 04/21/24 0856 04/20/24 0830 04/20/24 0755 04/19/24 1916 04/19/24 1657 SODIUM mmol/L -- 139 -- 140 -- 137 POTASSIUM PLASMA mmol/L -- 5.0* -- 4.6 -- 3.8 CHLORIDE mmol/L -- 101 -- 103 -- 96* CO2 mmol/L -- 25 -- 25 -- 26 BUN SERUM mg/dL -- 65* -- 34* -- 22 CREATININE mg/dL -- 4.60* -- 3.20* -- 2.30* [id number] mL/min/1.73 m2 -- 10* -- 15* -- 22* GLUCOSE mg/dL -- 163 -- 115 -- 114 POC GLUCOSE MONITOR mg/dL 168 -- < > -- < > -- CALCIUM mg/dL -- 9.3 -- 9.4 -- 9.2 ALBUMIN g/dL -- 3.6 -- 3.6 -- 4.1 < > = values in this interval not displayed. Recent Labs Lab Units 04/21/24 1043 04/21/24 0856 04/20/24 0755 WBC K/cumm 12.2* 9.1 10.3* HEMOGLOBIN g/dL 9.9* 9.3* 9.7* HEMATOCRIT % 30.0* 27.8* 29.9* PLATELETS K/cumm 204 199 207 NEUTROS PCT % 66.1 67.9 72.3 LYMPHS PCT % 26.4 24.5 21.0 MONOS PCT % 5.8 6.0 5.6 EOS PCT % 0.9 1.0 0.6 Recent Labs Lab Units 04/19/24 1720 COLOR U Yellow CLARITY U Clear SPEC GRAV U 1.011 PH, URINE 7.0 PROTEIN UR QL 2+* GLUCOSE URQL Trace* KETONES UR Negative BLOOD UR Negative NITRITE UR Negative LEUKOCYTE ESTERASE UR Negative ASSESSMENT & PLAN Principal Problem: Metabolic encephalopathy Active Problems: Primary hypertension Unresponsive episode ESRD on was dialyzed today as Thursday, , Thursday schedule she does have a tunneled hemodialysis catheter and may be at risk for catheter related bloodstream infection. Blood cultures are pending. Currently afebrile and mild leukocytosis. Anemia: Hemoglobin is close to goal. She should be on a long-acting erythropoietin analog in the dialysis unit. We will continue to monitor in the hospital and provide her Retacrit if hemoglobin persistently below 10 g% and with prolonged hospitalization. Continue phosphorus binders however consider discontinuing Carafate since it contains some aluminumwhich may be toxic in patients with ESRD. Thank you for the courtesy of this consultation. Voice recognition software was used to complete this document, therefore, photo tube assembler variances may occur. Tucker Pitts MD, M.S, [facility] Medical [facility] Nephrology and Hypertension Office: [phone] * Becky Gold SLP - 04/20/2024 10:53 AM CDT Images from the original note were not included. [facility] Inpatient Speech-Language Pathology Clinical Bedside Swallow Evaluation PRIOR MEDICAL HISTORY/SUBJECTIVE Patient Name/: Sixto Chakraborty / 1950 Age/Sex: 73 y.o. / female Room/Date of Service: [id number] / 04/20/2024 Admit Date/Primary Hospital Diagnosis: 04/19/2024 / Metabolic encephalopathy [G93.41] Debility [R53.81] Weakness [R53.1] Mild protein-calorie malnutrition (CMS/HCC) (HCC) [E44.1] Altered mental status, unspecified altered mental status type [R41.82] Referring Provider: Cheryl Slater MD HPI: Sixto Chakraborty is a 73 y.o. female with past medical history of ESRD on intermittent hemodialysis, receives dialysis Thursday//Thursday, type 2 diabetes on insulin therapy complicated by diabetic neuropathy, dementia, GERD, hypertension, schizophrenia who presents to the ED with alteredmental status. Patient was referred to speech pathology services for Initial Bedside Swallow Evaluation (during this hosp stay; pt has participated in previous swallow evals) due to Other (Comment) (difficulty w/pills). Patient is agreeable to speech pathology evaluation. Lab/Imaging: Recent Labs Lab Units 04/20/24 0755 WBC K/cumm 10.3* HEMOGLOBIN g/dL 9.7* HEMATOCRIT % 29.9* PLATELETS K/cumm 207 XR Chest 1 Vw Portable Result Date: 04/19/2024 IMPRESSION: No acute abnormality identified within limits of low inspiratory volume portable technique. Lung bases obscured. CT Stroke Head WO Contrast Result Date: 04/19/2024 IMPRESSION: No acute intracranial abnormality by CT criteria. These findings were relayed to the referring physician by the operation support center staff at the time of dictation. Allergies Reviewed: Yes; Patient has no known allergies. Precautions: Orders Placed This Encounter Procedures Fall precautions Pain Assessment: 0 - No pain Patient Goal: pt does not state specific swallowing goals Assessment: Diet Solids Recommendation: Regular Diet Liquids Recommendations: Thin/regular Recommended Form of Medications: Whole, With liquid Compensatory Strategies/Modifications: Postural Recommendations: Upright 90 degrees Assistance: Intermittent supervision Dysphagia Diagnosis: Mild oral stage dysphagia Overall Clinical Impression/Additional Information: Patient demonstrates: -oral motor exam revealed orofacial symmetry, strength, range of motion, and coordination WFL -Adequate dentition (upper & lower dentures appear to fit well) -self fed, appropriate oral acceptance, adequate lip seal, oral spreading, pt often adds more bolusbefore completing mastication and AP transfer, slow manipulation/mastication, adequate mastication,and scant residuals -swallow initiation appears timely -no signs or symptoms of aspiration -respiratory status does not appear to impair swallow function/safety -cognitive status does not appear to impair swallow function/safety Recommend Modified Barium Swallow due to ongoing concerns regarding swallowing, previously scheduled OP MBS. Diet Orders Prior to Assessment: Adult Diet Restricted; 4 CHO/Meal; Yes, patient is receiving insulin Home Diet/Baseline Feeding Status: Regular and Thin Respiratory Status: Current O2 support: Room air Respiratory Support: No significant impairment; respiratory support is adequate for speech and swallowing H/O Intubation: No Tracheostomy: (no) Behavior/Cognition: Alert, Cooperative, Pleasant mood Vision: Functional [...] Facial Sensation: Within Functional Limits Dentition: Adequate Consistencies Administered: thin, puree, and solid Harris Assessment of Swallowing Ability (MASA) Alertness: Alert Cooperation: Cooperative Auditory Comprehension: Follows ordinary conversation with little difficulty Respiratory Status: Chest clear Respiratory Rate (for swallow): Able to control breath rate for swallow Aphasia: No abnormality detected Apraxia: No abnormality detected Dysarthria: No abnormality detected Saliva: No abnormality detected Lip Seal: No abnormality detected Tongue Movement: Full range of motion Tongue Strength: No abnormality detected Tongue Coordination: No abnormality detected Gag: Hyperreflexive/no abnormality detected Palate: No abnormality detected Cough Reflex: No deficit noted Voluntary Cough: No abnormality detected Voice: No abnormality detected Trach: No trach Oral Preparation: Lip or tongue seal, bolus escape Bolus Clearance: Significant clearance, minimal residue Oral Transit: No deficits noted Pharyngeal Phase: Immediate laryngeal elevation Pharyngeal Response: No deficits noted MASA Score: 194 Dysphagia: No dysphagia detected (178-200) Aspiration Risk: No aspiration risk (170-200) Score Interpretation: despite score, family reports concern w/pills; pt was originally scheduled for MBS this day as OP Education Education: Patient has been educated on the swallow study results and plan of care. Education completed via verbal explanation. Patient may require ongoing reinforcement. Plan Recommended Follow-Up: Follow-up videofluoroscopic swallowing study PULVERIZING AND SIFTING OPERATOR Frequency: Pending instrumental assessment Next Planned Visit: 04/20/24 Discharge Recommendations: Defer at this time Barriers to Discharge: defer to medical team Discharge Summary Statement If this is the last speech therapy visit, this serves as the discharge summary. Goals established: 04/20/24 PULVERIZING AND SIFTING OPERATOR Care Plan Problems/Goals Swallowing STG - Patient will participate in clinical dysphagia evaluation STG - Patient will participate in instrumental assessment of swallowing as appropriate Becky Gold M.S., [facility]-PULVERIZING AND SIFTING OPERATOR [employer] Utilized: NO This patient was identified by name and on this visit. PULVERIZING AND SIFTING OPERATOR Start Time: 1042 PULVERIZING AND SIFTING OPERATOR Stop Time: 1053 PULVERIZING AND SIFTING OPERATOR Time Calculation (min): 11 min documented in this encounter Nursing Notes * Adela Willett RN - 04/23/2024 11:07 AM CDT 04/23/24 1030 Post-Hemodialysis Assessment Rinseback Volume (mL) 250 mL Dialyzer Clearance Clear Duration of Treatment (min) 180 minutes Treatment Status Completed Patient Status Departed Patient Response to Treatment tolerated well Net UF 1000 mL Post-Hemodialysis Comments Tx tolerated well, no complication's. Initial HD order called for max UF1.5l, early in tx pt's b/p trended down, UFG adjusted to prevent complication's, maintain stable vs. (covering for ) made aware and T.O. received to reduce max UF to 1000ml. as tolerated. Pt able to achieve UFG per while maintaining stable vs. Post HD tx pt without complaint, post vss. Pt without complaint upon dc'd from room. Net UF 1000ml. * Marie Peres RN - 04/21/2024 5:00 PM CDT Patient's mentation returned back to baseline. However she reports that she is still feeling drowsyand lethargic * Marie Peres RN - 04/21/2024 12:20 PM CDT Nurse spoke with Daughter Areli on phone at 1123 Daughter informed her mother went unresponsive during dialysis and that she has gotten a CT scan, has Neruo consulted, has an EEG ordered and that she will be getting another call with further updates soon. * Martha Shabazz RN - 04/21/2024 10:46 AM CDT 04/21/24 1046 Vitals BP 152/67 (Simultaneous filing. User may not have seen previous data.) BP Location Left arm (Simultaneous filing. User may not have seen previous data.) Patient Position Lying Temp 36.8 ??C (98.2 ??F) Temp src Oral Pulse 72 Resp 16 O2 Therapy None (Room air) Post-Hemodialysis Assessment Rinseback Volume (mL) 200 mL Dialyzer Clearance Lightly streaked Duration of Treatment (min) 92 minutes Treatment Status Other (Comment) (Tx ended early, all blood returned. CVC care done. Normal saline instilled, clamped and caps put on.) Patient Status (Patient is alert and answering questions.) Patient Response to Treatment Treatment was ended early. Patient became unresponsive. No CPR was done but a code was called. Dr. Ryan made aware. Net UF 550 mL Post-Hemodialysis Comments Patient is lethargic but awake and answers questions as previously. Hemodialysis Kt/V 33.6 Hemodialysis Volumes Intake (mL) 400 mL Output (mL) 950 mL * Martha Shabazz RN - 04/21/2024 10:29 AM CDT 04/21/24 1029 Vitals BP 142/73 BP Location Left arm Patient Position Lying Pulse 88 Patient became unresponsive, eyes rolled up and gasping. Stopped treatment and returned blood. Pushed alarm buttons on wall for further assistance. * Mikayla Grady RN - 04/20/2024 4:27 PM CDT Pt went down to MRI with no complications. Pt received her dentures, two rings and wig back. Pt placed the two rings on her finger and put her dentures (upper and lower) back in her mouth. Wig placedon top of her head. Pt now resting in the recliner with chair alarm with no complaints. * Mikayla Grady RN - 04/20/2024 9:19 AM CDT Attempted to call JOCELYN Singleton to screen for MRI but was unsuccessful at 0920. documented in this encounter ED Notes * Chris Wright MD - 04/19/2024 5:36 PM CDT HPI Chief Complaint Patient presents with Altered Mental Status 73-year-old with past medical history of end-stage renal disease on hemodialysis Thursday//Thursday presents with change in mental status during dialysis. Daughter reports that she took her mom to dialysis now mom was not quite acting herself but was able to ambulate and get there. During her dialysis, she became slowly more lethargic and ???stiff. ?? Patient appears sleepy here and is slow to respond to my questions. When I asked her if anything hurts, she says no. HPI Patient History: Patient Active Problem List Diagnosis Date Noted Metabolic encephalopathy 04/19/2024 Involuntary movements 03/18/2024 Left hand pain 03/16/2024 Complete tear of left rotator cuff 02/05/2024 Upper GI bleeding 01/30/2024 Coffee ground emesis 01/29/2024 Screening for colon cancer 01/18/2024 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 01/05/2024 ESRD on dialysis ([facility]) 12/20/2023 Anemia of renal disease 12/20/2023 Syncope, unspecified syncope type 12/19/2023 Leukocytosis 12/19/2023 Renal disorder Left shoulder pain 12/11/2023 Arthropathy of left shoulder 12/11/2023 CKD (chronic kidney disease) stage 4, GFR 15-29 ml/min ([facility]) ([facility]) 12/07/2023 Tinnitus of both ears 11/04/2023 Mixed conductive and sensorineural hearing loss of both ears 11/04/2023 Dysfunction of both eustachian tubes 11/04/2023 ESRD on hemodialysis ([facility]) ([facility]) 11/02/2023 AMS (altered mental status) 10/30/2023 Leg swelling 10/07/2023 Bandemia 12/20/2022 Shortness of breath 12/13/2022 Chronic diastolic congestive heart failure ([facility]) ([facility]) 12/06/2022 Bibasilar consolidations 12/06/2022 Movement disorder 12/06/2022 Abnormal urinalysis 11/07/2022 Anemia in chronic kidney disease, on chronic dialysis ([facility]) 10/10/2022 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[facility]) 08/14/2022 Pulmonary nodule 11/16/2021 Physical deconditioning 11/15/2021 Toe necrosis ([facility]) ([facility]) 10/07/2021 Volume overload 09/06/2021 Retention of urine, unspecified 08/22/2021 Unspecified osteoarthritis, unspecified site 08/22/2021 Unsteadiness on feet 08/22/2021 Weakness 08/22/2021 Late onset Alzheimer's dementia without behavioral disturbance ([facility]) 08/19/2021 Encounter for Medicare annual wellness exam 01/08/2021 Schizoaffective disorder, bipolar type ([facility]) ([facility]) 10/10/2020 Mixed hyperlipidemia 04/03/2020 Iron deficiency anemia 04/02/2020 Gastroesophageal reflux disease without esophagitis 04/02/2020 History of amputation of toe ([facility]) ([facility]) 01/19/2020 Uncontrolled hypertension 12/13/2019 Type 2 diabetes mellitus with diabetic neuropathy, with long-term current use of insulin ([facility]) 08/30/2019 Diabetic neuropathy ([facility]) Past Medical History: Diagnosis Date Anemia Arthritis CHF (congestive heart failure) ([facility]) (HCC) CKD (chronic kidney disease) stage V requiring chronic dialysis (HCC) Dementia (HCC) Depression Diabetic neuropathy (HCC) End stage chronic kidney disease ([facility]) (HCC) hemodialysis T Th Sat GERD (gastroesophageal reflux disease) HL (hearing loss) Hyperlipidemia Hypertension Movement disorder Osteomyelitis (HCC) Rotator cuff tear, left Schizophrenia (HCC) Type 2 diabetes mellitus (HCC) Past Surgical History: Procedure Laterality Date SECTION [...] Never Passive exposure: Never Smokeless tobacco: Never Vaping Use Vaping status: Never Used Substance and Sexual Activity Alcohol use: Not Currently Drug use: Never Sexual activity: Not Currently Partners: Male Social History Social History Narrative Originally From [place] Grew up with her mom and dad. 12th grade - graduated. [employer]. [employer] - none. Yarsanism. I never worked. Single. Review of Systems Review of Systems Unable to perform ROS: Mental status change Physical Exam ED Triage Vitals Temp Pulse Resp BP SpO2 04/19/24 1704 04/19/24 1648 04/19/24 1656 04/19/24 1648 04/19/24 1648 36.4 ??C (97.6 ??F) 80 14 (!) 174/92 99 % Temp src Heart Rate Source Patient Position BP Location FiO2 (%) 04/19/24 1704 04/20/24 0525 04/20/24 0000 04/20/24 0000 -- Axillary Monitor Lying Right arm Height Height Method Weight Weight Method 04/20/24 0000 04/20/24 0000 04/19/24 1709 04/19/24 1709 1.575 m (5' 2 ) Estimated 59 kg (130 lb 1.1 oz) EMS stretcher scale Physical Exam Constitutional: Comments: Sleepy but arouses to name HENT: Head: Normocephalic and atraumatic. Eyes: Pupils: Pupils are equal, round, and reactive to light. Cardiovascular: Rate and Rhythm: Normal rate and regular rhythm. Heart sounds: No murmur heard. No gallop. Pulmonary: Effort: Pulmonary effort is normal. No respiratory distress. Breath sounds: Normal breath sounds. No wheezing, rhonchi or rales. Abdominal: Palpations: Abdomen is soft. Tenderness: There is no abdominal tenderness. Musculoskeletal: General: No swelling. Skin: General: Skin is warm and dry. Coloration: Skin is not pale. Neurological: Mental Status: She is lethargic. Comments: Able to hold up both her hands, chronic R tremor noted, sleepy and difficult to keep aroused to ask to move her lower extremities, yawning Labs Reviewed URINALYSIS AND REFLEX TO MICROSCOPIC AND CULTURE - Abnormal Result Value Color, ur Yellow Clarity, ur Clear Specific gravity, ur 1.011 pH, urine 7.0 Protein, ur ql 2+ (*) Glucose, ur ql Trace (*) Ketones, ur Negative Bilirubin, ur Negative Blood, ur Negative Urobilinogen, ur <2.0 Nitrite, ur Negative Leukocyte esterase, ur Negative UA reflex comment Reflex to microscopic UA will be performed. CBC WITH AUTO DIFFERENTIAL - Abnormal WBC 11.2 (*) Hgb 9.9 (*) Hct 30.0 (*) Plt 208 MPV 10.9 RBC 3.28 (*) MCV 91.5 MCH 30.2 MCHC 33.0 RDW CV 14.6 RDW SD 49.1 (*) NRBC abs 0.00 Narrative: Potential Stroke Patient COMPREHENSIVE METABOLIC PANEL - Abnormal Sodium 137 Potassium, pl 3.8 Chloride 96 (*) CO2 26 Anion gap 15 BUN 22 Creatinine 2.30 (*) Glucose 114 Calcium 9.2 Bilirubin, total 0.3 Protein, pl 8.1 Albumin 4.1 Alk phos 133 (*) ALT 50 (*) AST 33 Narrative: Potential Stroke Patient APTT - Abnormal aPTT 64 (*) Narrative: Potential stroke patient. TROPONIN T HIGH-SENSITIVITY SERIES (BASELINE, 2HR, 4HR, 6HR) - Abnormal Trop T hs 65 (*) DIFFERENTIAL AUTO - Abnormal Neutrophil abs 8.3 (*) Imm gran abs 0.1 Lymphocyte abs 2.1 Monocyte abs 0.6 Eosinophil abs 0.1 Basophil abs 0.0 Neutrophil pct 74.2 Imm gran pct 0.4 Lymphocyte pct 19.2 Monocyte pct 5.2 Eosinophil pct 0.7 Basophil pct 0.3 TROPONIN T HIGH-SENSITIVITY 2-HOUR - Abnormal Trop T hs 63 (*) Trop T hs delta See Comment Trop T hs pct delta See Comment Trop T hs interp See Comment URINALYSIS, MICROSCOPIC ONLY - Abnormal WBC, ur 0-5 RBC, ur 3-5 (*) Mucous, ur Present (*) Culture Reflex Comment Value: Reflex conditions for urine culture (WBC >10) not met. EGFR - Abnormal eGFR 22 (*) CBC WITH AUTO DIFFERENTIAL - Abnormal WBC 10.3 (*) Hgb 9.7 (*) Hct 29.9 (*) Plt 207 MPV 10.7 RBC 3.20 (*) MCV 93.4 MCH 30.3 MCHC 32.4 RDW CV 14.5 RDW SD 49.1 (*) NRBC abs 0.00 COMPREHENSIVE METABOLIC PANEL - Abnormal Sodium 140 Potassium, pl 4.6 Chloride 103 CO2 25 Anion gap 12 BUN 34 (*) Creatinine 3.20 (*) Glucose 115 Calcium 9.4 Bilirubin, total 0.2 Protein, pl 7.0 Albumin 3.6 Alk phos 106 ALT 35 AST 18 DIFFERENTIAL AUTO - Abnormal Neutrophil abs 7.5 (*) Imm gran abs 0.0 Lymphocyte abs 2.2 Monocyte abs 0.6 Eosinophil abs 0.1 Basophil abs 0.0 Neutrophil pct 72.3 Imm gran pct 0.3 Lymphocyte pct 21.0 Monocyte pct 5.6 Eosinophil pct 0.6 Basophil pct 0.2 EGFR - Abnormal eGFR 15 (*) INFLUENZA A/B, RSV, AND COVID-19 PCR COVID-19 RNA Negative Influenza A RNA Negative Influenza B RNA Negative RSV RNA Negative Narrative: Is the Patient experiencing symptoms consistent with COVID?->Unknown BLOOD CULTURE BLOOD CULTURE PROTIME-INR PT 13.5 INR 1.0 AMMONIA Ammonia 19 AMMONIA Ammonia 26 POCT GLUCOSE DEVICE POCT GLUCOSE DEVICE Glucose, POC 115 POCT GLUCOSE DEVICE Glucose, POC 99 Glucose comment 1 Use This Result POCT GLUCOSE DEVICE POCT GLUCOSE DEVICE Glucose, POC 119 POCT GLUCOSE DEVICE POCT GLUCOSE DEVICE POCT GLUCOSE DEVICE MDM 73-year-old female with past medical history of end-stage renal disease on hemodialysis Thursday//Thursday presents with progressive altered mental status during dialysis today. Vital signs stable, no acute distress, nontoxic appearing this time. Patient is sleepy here but does arouse to voice and able to follow some directions before she falls back asleep. Stroke alert was called by staffbut she appears more metabolic to me on examination as she has no focal deficits. Suspect likely metabolic encephalopathy of unknown cause at this time. Will check labs, UA, chest x-ray. CT head is negative at this time. NIH Score Interval: Baseline Level of Consciousness (1a.): 0 LOC Questions (1b.): 0 LOC Commands (1c.): 0 Best Gaze (2.): 0 Visual (3.): 0 Facial Palsy (4.): 0 Motor Arm, Left (5a.): 0 Motor Arm, Right (5b.): 0 Motor Leg, Left (6a.): 0 Motor Leg, Right (6b.): 0 Limb Ataxia (7.): 0 Sensory (8.): 0 Best Language (9.): 0 Dysarthria (10.): 0 Extinction and Inattention (11.) (Formerly Neglect): 0 Total: 0 Medical Decision Making Amount and/or Complexity of Data Reviewed Labs: ordered. Decision-making details documented in ED Course. Radiology: ordered. ECG/medicine tests: ordered. Risk Decision regarding hospitalization. ED Course as of 04/20/24 0948 Time: 04/19 1838 Value: Trop T hs(!): 65 Comment: Appears to be patient's baseline, troponin usually elevated to 90-100 per record review By: Chris Wright MD Time: 04/19 1839 Value: Hgb(!): 9.9 Comment: Baseline By: Chris Wright MD Time: 04/19 1839 Value: Creatinine(!): 2.30 Comment: Baseline By: Chris Wright MD Final diagnoses: Metabolic encephalopathy Altered mental status, unspecified altered mental status type Weakness Debility Mild protein-calorie malnutrition (CMS/HCC) (HCC) Chirs Wrigth MD 04/20/24 0948 * Monserrat Macias RN - 04/19/2024 4:50 PM CDT Pt presents to ED via EMS from dialysis. Per daughter at bedside pt is able to make conversation but is Ax0x1 at baseline r/t dementia. Pt at this time will not follow commands, she will state her name is homer, and will say yes or no to questions. BG 98 for EMS. Daughter states that pt started dialysis at 1200 today and gradually became more lethargic and not responsive. documented in this encounter Miscellaneous Notes * Plan of Care - Olivia Warren RN - 04/23/2024 7:32 PM CDT DISCHARGE PLANNING HAS BEEN FINALIZED AT THIS TIME: If there is a change in patient condition whichcould impact this plan and/or additional discharge needs arise, please contact Case Management. Care management team met with patient and finalized discharge planning, please see below. If additional discharge needs arise, please reach out to the care management team. SANTOS: 04/23/24 TRANSPORTATION: via family. 04/23/24 0911 Discharge Summary Discharge Disposition Private residence Discharge Records Transfer Form Completed Recommended Discharge Level of Care Private residence Actual Discharge Level of Care Private residence Does Actual Level of Care Match Care Team Recommendation? Yes Post Acute Care Plan Home Care Services Decline Durable Medical Equipment None Post Acute Care Facility Decline Discharge Additional Assistance Does the patient need discharge transport arranged? No Post Discharge Care Provider Post Discharge Care Plan Next level of care provider has access to complete EMR Potential Discharge Needs Anticipated discharge level of care Private residence IC CUTTER * Plan of Care - Elvia Piper RN - 04/23/2024 12:41 PM CDT Problem: Discharge Planning Goal: Understanding discharge needs will improve Outcome: Progressing Problem: Skin Integrity Impairment Risk Goal: Mobility will improve Outcome: Progressing Goal: Understanding of ways to prevent future skin breakdown will improve Outcome: Progressing Goal: Nutritional status will improve Outcome: Progressing Goal: Risk for impaired skin integrity will decrease Outcome: Progressing Problem: Fall Risk Goal: Ability to state ways to decrease the risk of falls will improve Outcome: Progressing Goal: Will remain free from falls Outcome: Progressing Goal: Will remain free from injury from falls Outcome: Progressing Problem: Lack of Knowledge Goal: Ability to develop a pain control plan will improve Outcome: Adequate for Discharge Problem: Medication Goal: Satisfaction with pain management medication regimen will improve Outcome: Adequate for Discharge Problem: Sensory Goal: Ability to identify factors that increase pain levels will improve while working to decrease the patient's pain levels Outcome: Progressing Problem: Coping Goal: Ability to cope will improve Outcome: Progressing Problem: Health Behavior Goal: Identification of resources available to assist in meeting health care needs will improve Outcome: Progressing Goals: Clinical Goals for the Shift: stable vital signs, rest, comfort, safety Summary: Tolerated dialysis well this a.m. 1000 ml net. Denies pain. Possibly being discharged thisafternoon. Labs ordered after dialysis. * Plan of Care - Judie Way RN - 04/22/2024 9:55 PM CDT Goals: Clinical Goals for the Shift: stable vital signs, rest, comfort, safety Summary: Assessment of patient???s baseline is established at the beginning of the shift in flowsheets. Patient reassessed per order, unexpected findings and/or deviations from baseline are captured in flowsheets. Frequent safety checks and comfort rounds provided. Orders and/or nursing care completed as indicated. Patient monitored for response to interventions and treatments as documented in flowsheets. * Plan of Care - Radha Medina RN - 04/22/2024 4:10 PM CDT Goals: Clinical Goals for the Shift: stable vital signs, rest, comfort, safety Summary: pt has done well this shift. Vitals stable. Plans for dialysis tomorrow. Problem: Discharge Planning Goal: Understanding discharge needs will improve Outcome: Progressing Problem: Skin Integrity Impairment Risk Goal: Mobility will improve Outcome: Progressing Goal: Understanding of ways to prevent future skin breakdown will improve Outcome: Progressing Goal: Nutritional status will improve Outcome: Progressing Goal: Risk for impaired skin integrity will decrease Outcome: Progressing Problem: Fall Risk Goal: Ability to state ways to decrease the risk of falls will improve Outcome: Progressing Goal: Will remain free from falls Outcome: Progressing Goal: Will remain free from injury from falls Outcome: Progressing Problem: Lack of Knowledge Goal: Ability to develop a pain control plan will improve Outcome: Progressing Problem: Medication Goal: Satisfaction with pain management medication regimen will improve Outcome: Progressing Problem: Sensory Goal: Ability to identify factors that increase pain levels will improve while working to decrease the patient's pain levels Outcome: Progressing Problem: Coping Goal: Ability to cope will improve Outcome: Progressing Problem: Health Behavior Goal: Identification of resources available to assist in meeting health care needs will improve Outcome: Progressing Problem: Neurosensory Goal: Achieves stable or improved neurological status Outcome: Progressing Problem: Respiratory Goal: Achieves optimal ventilation and oxygenation Outcome: Progressing Problem: Musculoskeletal Goal: Return mobility to safest level of function Outcome: Progressing Goal: Ability to perform activities at highest level will improve Outcome: Progressing Problem: Genitourinary Goal: Absence of urinary retention Outcome: Progressing Problem: Infection Goal: Absence of infection during hospitalization Outcome: Progressing * Plan of Care - Olivia Warren RN - 04/22/2024 3:09 PM CDT CM Care Progression Expected Discharge Date and Time Expected Discharge Date Apr 24, 2024 Next steps with the transition plan: HD, EEG, Neuro Recs, Rollator - order pend/delivery needs arranged. Declines HHC/SNF, Family to transport. This discharge plan has been discussed with patient and care team with agreement to the post-acute care plan and understanding of the expectations for discharge when medically ready. Olivia Warren RN 04/22/24 1507 Discharge Planning Support System Children Anticipated discharge level of care Private residence Does the patient need discharge transport arranged? No Post Acute Care Plan Home Care Services Decline OP Services Decline DME Yes Durable Medical Equipment Rollator DME Name and Contact Number Order Pend / delivery needs arranged Post Acute Care Facility Decline * Plan of Care - Judie Way RN - 04/22/2024 4:07 AM CDT Goals: Clinical Goals for the Shift: stable vital signs, rest, comfort, safety Summary: Assessment of patient???s baseline is established at the beginning of the shift in flowsheets. Patient reassessed per order, unexpected findings and/or deviations from baseline are captured in flowsheets. Frequent safety checks and comfort rounds provided. Orders and/or nursing care completed as indicated. Patient monitored for response to interventions and treatments as documented in flowsheets. * Plan of Care - Marie Peres RN - 04/21/2024 4:58 PM CDT Goals: Clinical Goals for the Shift: stable vs, safety, HD in am Summary: Problem: Discharge Planning Goal: Understanding discharge needs will improve Outcome: Progressing Flowsheets (Taken 04/21/20241656) Understanding of discharge needs will improve: Identify discharge barriers Problem: Skin Integrity Impairment Risk Goal: Mobility will improve Outcome: Progressing Flowsheets (Taken 04/21/20241656) Mobility will improve: Encourage mobilization to extent of ability, assist with range of motion as needed Encourage ambulation Goal: Nutritional status will improve Outcome: Progressing Flowsheets (Taken 04/21/20241656) Nutritional status will improve: Assess nutritional status Problem: Skin Integrity Impairment Risk Goal: Understanding of ways to prevent future skin breakdown will improve Flowsheets (Taken 04/21/20241656) Understanding of ways to prevent future skin breakdown will improve: Discuss treatments to protect skin integrity Goal: Risk for impaired skin integrity will decrease Flowsheets (Taken 04/21/20241656) Risk for impaired skin integrity will decrease: Identify risk factors for impaired skin integrity and/or pressure injuries Implement precautions to protect skin integrity Perform cleansing of skin when soiled Problem: Fall Risk Goal: Ability to state ways to decrease the risk of falls will improve Flowsheets (Taken 04/21/20241656) Ability to state ways to decrease the risk of falls will improve: Teach fall prevention measures Goal: Will remain free from falls Flowsheets (Taken 04/21/20241656) Will remain free from falls: Assess risk factors for falls Goal: Will remain free from injury from falls Flowsheets (Taken 04/21/20241656) Will remain free from injury from falls: Provide safe environment for conduction of activities of daily living in hospital environment Assessment of patient???s baseline is established at the beginning of the shift in flowsheets. Patient reassessed per order, unexpected findings and/or deviations from baseline are captured in flowsheets. Frequent safety checks and comfort rounds provided. Orders and/or nursing care completed as indicated. Patient monitored for response to interventions and treatments as documented in flowsheets. Plan of care discussed with patient/employment program representative, including as it relates to Principal Problem: Metabolic encephalopathy Active Problems: Primary hypertension Unresponsive episode Debility Patient progressing. Clinical goals for the shift EEG and head CT. Education provided includes Treatments/Therapies: . Patient and/or employment program representative Verbalizes understanding. Will continue to monitor. * Provider Query - Cheryl lSater MD - 04/21/2024 4:07 PM CDT THIS IS A VALIDATION QUERY - ADDITIONAL CLINICAL INFORMATION REQUESTED Based on the [facility] approved criteria for malnutrition (see below), verify if the documented diagnosisis accurate. _x__ Mild Protein Calorie Malnutrition, Document detailed rationale and clinical impression in provider response below. ___ No Nutritional Deficit ___ Historical diagnosis only ___ Other explanation of clinical findings, specify below Additional Provider Response: Patient has malnutrition due to diminished oral intake. Clinical Indicators/Treatments: Per ED Provider: 73-year-old with past medical history of end-stage renal disease on hemodialysis Thursday//Thursday presents with change in mental status during dialysis Per ED Provider Diagnosis Includes: Mild protein-calorie malnutrition Speech Evaluation 04/20 includes Diagnosis: Mild protein-calorie malnutrition Body Mass Index: 26.21 kg/m?? Abnormal 157.5 cm (5' 2 ) as of 04/20/2024 65 kg (143 lb 4.8 oz) as of 04/20/2024 Record Review does not identify any weight loss References: Characteristics Malnutrition in the Context of ACUTE Illness or Injury < 3 months Malnutrition in the Context of CHRONIC Illness or Injury > 3 months Malnutrition in the Context of Social or Environmental Circumstances Moderate Malnutrition Severe Malnutrition Moderate Malnutrition Severe Malnutrition Moderate Malnutrition Severe Malnutrition 1: Energy intake (as a % of estimated energy requirements) < 75% of estimated energy requirement for >7 days <= 50% of estimated energy requirement for >= 5 days < 75% of estimated energy requirement for >= 1 month <= 75% of estimated energy requirement for >= 1 month < 75% of estimated energy requirement for >= 3 months <= 50% of estimated energy requirement for >= 1 month 2: Weight loss (as a % of weight lost from baseline) 1-2% in 1 wk 5% in 1 mo 7.5% in 3 mo >2% in 1 wk >5% in 1 mo >7.5% in 3 mo 5% in 1 mo 7.5% in 3 mo 10% in 6 mo 20% in 1 yr >5% in 1 mo >7.5% in 3 mo >10% in 6 mo >20% in 1 yr 5% in 1 mo 7.5% in 3 mo 10% in 6 mo 20% in 1 yr >5% in 1 mo >7.5% in 3 mo >10% in 6 mo >20% in 1 yr Physical Findings of 3: Loss of body fat 4: Loss of muscle mass or 5: Fluid accumulation Mild Findings: ? sub q fat ? muscle ? fluid/edema Moderate Findings: ? sub q fat ? muscle ? fluid/edema Mild Findings: ? sub q fat ? muscle ? fluid/edema Severe Findings: ? sub q fat ? muscle ? fluid/edema Mild Findings: ? sub q fat ? muscle ? fluid/edema Severe Findings: ? sub q fat ? muscle ? fluid/edema 6: Reduced Rn Transition Strength n/a Measurably reduced per device standards n/a Measurably reduced per device standards n/a Measurably reduced per device standards Note: Mild Malnutrition has not been defined by [facility]. Mild malnutrition is a subjective assessmentwith characteristics of malnutrition greater than ???none?? but less than ???moderate.?? Mild malnutrition could be defined as one characteristic outlined above with the established moderate or severe parameters. From the ICD-10-CM Coding Guidelines, use of terms such as likely, suspected, possible, or probable(associated with a specific diagnosis that is being evaluated, monitored, or treated as if it exists) are acceptable and can be coded in the inpatient setting when documented at the time of discharge. This documentation will become part of the patient???s medical record. Sincerely, Joana CATALAN, RN * Plan of Care - La Nena Frazier RN - 04/21/2024 4:58 AM CDT Problem: Discharge Planning Goal: Understanding discharge needs will improve Outcome: Progressing Problem: Skin Integrity Impairment Risk Goal: Mobility will improve Outcome: Progressing Goal: Understanding of ways to prevent future skin breakdown will improve Outcome: Progressing Goal: Nutritional status will improve Outcome: Progressing Goal: Risk for impaired skin integrity will decrease Outcome: Progressing Problem: Fall Risk Goal: Ability to state ways to decrease the risk of falls will improve Outcome: Progressing Goal: Will remain free from falls Outcome: Progressing Goal: Will remain free from injury from falls Outcome: Progressing Goals: Clinical Goals for the Shift: stable vs, safety, HD in am Summary: Assessment of patient???s baseline is established at the beginning of the shift in flowsheets. Patient reassessed per order, unexpected findings and/or deviations from baseline are captured in flowsheets. Frequent safety checks and comfort rounds provided. Orders and/or nursing care completed as indicated. Patient monitored for response to interventions and treatments as documented in flowsheets. Plan of care discussed with patient/employment program representative, including as it relates to Principal Problem: Metabolic encephalopathy Active Problems: Primary hypertension * Initial Assessments - Sera Castaneda LCSW - 04/20/2024 3:15 PM CDT Social Work Assessment Clinical Dx: Metabolic encephalopathy Past Medical History: Date of last inpatient admission: Previous admit date: 01/30/2024 Number of inpatient admissions in past year: 10 Reason for Current Hospitalization (Pt/Caregiver Stated): My legs (04/20/241455) Patient Information: Information Obtained From: Patient Marital Status: Does Pt have Legal Guardian, Surrogate Decision Maker or Healthcare Agent? : Yes-patient stated Patient Stated Surrogate Name/Phone: Areli Gayle [phone] Employment Status: Retired Payor Source: Medicare, Medicaid Race: Black or -Iraqi Sexual Orientation : Heterosexual Gender Identity: Female Service : NA (04/20/241455) Current Situation: Current Situation Living Arrangements: Children Type of Residence: Private residence Income: SSD/SSI Education Level : High School Diploma How do you Pay for Medication: Insurance Current Transportation: Own vehicle What do you do with your Free Time: Pt said she likes going to restorationism, reading and watching tv. (04/20/241455) Legal History: Support Systems and Spirituality: Support Systems and Spirituality Support System: Children, Voodoo/dong community Children Name/Contact Information: Areli Gayle Participation from Patient's Support System: Pt said that she has 3 adult children. Do you have a Methodist Preference or Affiliation?: Yes Are there any Methodist Practices that are important to maintain while admitted?: No Do you have Cultural Factors that are important to you?: No (04/20/241455) Strengths, Assets, Liabilities and Stressors: Strengths, Assets, Liabilities, and Stressors Strengths (Must Choose Two): Cultural/spiritual/advent and community involvement, Interpersonal relationships and supports,i.e., family, friends, peers, Access to housing/residential stability Hope and Strength during Difficult Times: Pt's restorationism and family Does Pt have access to Employee Assistance Program: No Current Stressors: Chronic illness (04/20/241455) SDOH Transportation Needs: No Transportation Needs (04/20/2024) PRAPARE - Transportation Lack of Transportation (Medical): No Lack of Transportation (Non-Medical): No Financial Resource Strain: Low Risk (04/20/2024) Overall Financial Resource Strain (CARDIA) Difficulty of Paying Living Expenses: Not very hard Housing Stability: Low Risk (04/20/2024) Housing Stability Vital Sign Unable to Pay for Housing in the Last Year: No Number of Times Moved in the Last Year: 0 Homeless in the Last Year: No Social Connections: Moderately Isolated (04/20/2024) Social Connection and Isolation Panel [NHANES] Frequency of Communication with Friends and Family: More than three times a week Frequency of Social Gatherings with Friends and Family: More than three times a week Attends Methodist Services: More than 4 times per year Active Member of Clubs or Organizations: No Attends Club or Organization Meetings: Never Marital Status: Food Insecurity: No Food Insecurity (04/20/2024) Hunger Vital Sign Worried About Running Out of Food in the Last Year: Never true Ran Out of Food in the Last Year: Never true Tobacco Use: Low Risk (04/06/2024) Patient History Smoking Tobacco Use: Never Smokeless Tobacco Use: Never Passive Exposure: Never Alcohol Use: Not At Risk (02/24/2024) AUDIT-C Frequency of Alcohol Consumption: Never Average Number of Drinks: Patient does not drink Frequency of Binge Drinking: Never PHQ Screening Over the last 2 weeks, how often have you been bothered by any of the following problems? Little Interest or Pleasure in Doing Things: Not at all Feeling Down, Depressed, or Hopeless: Not at all PHQ-2 Total Score (If total score is 3 or more points, staff should administer the PHQ-9): 0 Over the past 2 weeks, how often have you been bothered by any of the following problems? Little Interest or Pleasure in Doing Things: Not at all Feeling Down, Depressed, or Hopeless: Not at all PHQ-2 Total Score (If total score is 3 or more points, staff should administer the PHQ-9): 0 Trouble Falling or Staying Asleep, or Sleeping too Much: Not at all Feeling Tired or Having Little Energy: Not at all Poor Appetite or Overeating: Not at all Feeling Bad About Yourself - or That You are a Failure or Have Let Yourself or Your Family Down: Not at all Trouble Concentrating on Things, Such as Reading the Newspaper or Watching Television: Not at all Moving or Speaking so Slowly That Other People Could Have Noticed, or the Opposite - Being so Fidgety or Restless That You Have Been Moving Around a lot More Than Usual: Not at all Thoughts That You Would be Better off , or of Hurting Yourself in Some Way: Not at all PHQ-9 Total Score: 0 If you checked off any problems, how difficult have these problems made it for you to do your work,take care of things at home, or get along with other people?: Not difficult at all E-Cigarette/Vaping Questions Responses E-cigarette/Vaping Use Never User Drug Details Questions Responses Amphetamine frequency Never used Comment: Never used on 10/10/2020 Hallucinogen frequency Never used Comment: Never used on 10/10/2020 Ecstasy frequency Never used Comment: Never used on 10/10/2020 Cocaine frequency Never used Comment: Never used on 10/10/2020 Cannabis frequency Never used Comment: Never used on 10/10/2020 Inhalant frequency Never used Comment: Never used on 10/10/2020 Substance Abuse, Mental Health, and Trauma History: Risk to Self and Others: Impressions and Recommendations: Patient seen due to a readmission risk of 54% and 10 admissions in the past year. Patient friendly and participated in conversation, but provided one or two word answers. According to patient she still drives herself as needed. Patient said that she is active in her restorationism but otherwise spends time at home staying busy Patient said she has a homemaker but did not share that she is a dialysis patient. Patient agreeable to PhQ-9 and denies any depression, anxiety or feelings of hopelessness. She informed this SW that she feels like she has good quality of life and finds comfort in her dong and thesupport of her family. Patient's goal is to return home at discharge and she denies any discharge needs. Patient awaiting therapy eval. No SW needs at this time but SW can be consulted as needed. * Plan of Care - Mikayla Grady RN - 04/20/2024 11:43 AM CDT Problem: Discharge Planning Goal: Understanding discharge needs will improve Outcome: Ongoing Problem: Skin Integrity Impairment Risk Goal: Mobility will improve Outcome: Ongoing Goal: Understanding of ways to prevent future skin breakdown will improve Outcome: Ongoing Goal: Nutritional status will improve Outcome: Ongoing Goal: Risk for impaired skin integrity will decrease Outcome: Ongoing Problem: Fall Risk Goal: Ability to state ways to decrease the risk of falls will improve Outcome: Ongoing Goal: Will remain free from falls Outcome: Ongoing Goal: Will remain free from injury from falls Outcome: Ongoing * Initial Assessments - Olivia Warren RN - 04/20/2024 11:00 AM CDT CM Initial Assessment Interview Note Information Obtained From: Patient (04/20/24 2956) Admission Source: ER from home. Impression: Admitted for AMS HX of ESRD, Dementia. Plan Includes: CM met with patient and spoke with Areli - Daughter, via phone. She resides with her daughter ahd has good family support; they anticipate her returning. home. Pt's daughter is her paid caregiver - 20 hours a week. She uses a walker and BSC but is in need of a rollator; evaluationspending. Declines HHC/SNF. Denies needs or barriers to discharge. Primary Source of Transportation: Does the patient need discharge transport arranged?: No (04/20/24 1100) Health Insurance Coverage: MEDICARE MEDICARE PART A & B Payor Plan Address Payor Plan Phone Number Payor Plan Fax Number Effective Dates [address] [address] 10/21/2015 - None Entered [facility] [id number] Subscriber Name Subscriber Date Member ID SIXTO CHAKRABORTY 1950 [id number] Secondary Coverage Payor Plan Insurance Group Employer/Plan Group IDPA IDPA Payor Plan Address Payor Plan Phone Number Payor Plan Fax Number Effective Dates [address] [address] 06/22/2021 - None Entered [facility] [id number] Subscriber Name Subscriber Date Member ID SIXTO CHAKRABORTY 1950 [id number] Prescription Coverage: Yes Pharmacy: [id number] - [place] - [address] AT [address] [place] [address] Primary Care Provider: Cherelle Corcoran MD Prior to Admission: Functional Status: Moderate assist with ADLs Primary Caregiver: Family Support System: Children Home Care Services: Yes 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 Outpatient Services: No Durable Medical Equipment: Walker (no wheels), Shower chair Living Arrangements: Children Type of Residence: Private residence (04/20/24 1100) SDOH: Transportation: In the past 12 months, has lack of transportation kept you from medical appointments or from getting medications?: No In the past 12 months, has lack of transportation kept you from meetings, work, or from getting things needed for daily living?: No (04/20/24 1506) Financial Resource: How hard is it for you to pay for the very basics like food, housing, medical care, and heating?: Not very hard (04/20/24 1506) Housing: In the last 12 months, was there a time when you were not able to pay the mortgage or rent on time?: No In the past 12 months, how many times have you moved where you were living?: 0 At any time in the past 12 months, were you homeless or living in a fci (including now)?: No (04/20/24 1506) Utilities: No, (04/20/24 1506) Social Connections: In a typical week, how many times do you talk on the phone with family, friends, or neighbors?: More than three times a week How often do you get together with friends or relatives?: More than three times a week How often do you attend restorationism or advent services?: More than 4 times per year Do you belong to any clubs or organizations such as restorationism groups, unions, fraternal or athletic groups, or school groups?: No How often do you attend meetings of the clubs or organizations you belong to?: Never Are you , , , , never , or living with a partner?: (04/20/24 1506) Food Insecurity: Within the past 12 months, you worried that your food would run out before you got the money to buymore.: Never true Within the past 12 months, the food you bought just didn't last and you didn't have money to get more.: Never true (04/20/24 7206) Potential discharge needs include: Home Health: nursing home, Physical therapy, Occupational therapy (04/20/24 1100) Dialysis: Dialysis History Start End Type Center Comments [facility] Center Information [facility] Address: [address] [place] [id number] Behavioral Health Services: Behavioral Health Services: No (04/20/24 1100) Anticipated Level of Care: Anticipated discharge level of care: Private residence Pt/Family agrees with Anticipated Level of Care: Yes (04/20/24 1100) Patient expects to be Discharged to: Private residence, (04/20/24 1100) Patient's Identified Problem/Goal Problem: Ensure acute medical needs are met and that patient has a safe discharge plan. Goal: Secure a discharge plan that patient/family are agreeable with and ensure patient has continuum of care. Case management will follow for discharge planning and send referrals as needed. Olivia Warren RN * Plan of Care - Vianney Rashid RN - 04/20/2024 12:23 AM CDT Problem: Discharge Planning Goal: Understanding discharge needs will improve Outcome: Progressing Problem: Skin Integrity Impairment Risk Goal: Mobility will improve Outcome: Progressing Goal: Understanding of ways to prevent future skin breakdown will improve Outcome: Progressing Goal: Nutritional status will improve Outcome: Progressing Goal: Risk for impaired skin integrity will decrease Outcome: Progressing Problem: Fall Risk Goal: Ability to state ways to decrease the risk of falls will improve Outcome: Progressing Goal: Will remain free from falls Outcome: Progressing Goal: Will remain free from injury from falls Outcome: Progressing Goals: comfort, safety, vss Summary: Assessment of patient's baseline established in the flowsheets. Frequent safety checks andcomfort rounds provided. Orders and/or nursing care completed as indicated. Patient monitored for response to interventions and treatments as documented in flowsheets. VS stable. Safety precautions ma intained. Patient resting in bed. * ED Re-evaluation Note - Wally Linn Jr., MD - 04/19/2024 6:57 PM CDT ED Re-evaluation 6:45 p.m. patient report received from Dr. Wright regarding [id number] with past medical history of end-stage renal disease on hemodialysis Thursday//Thursday presents with change in mental status during dialysis. Daughter reports that she took her mom to dialysis now mom was not quiteacting herself but was able to ambulate and get there. During her dialysis, she became slowly more lethargic and ???stiff. Initially she was treated at triage under stroke alert, however her exam hasbeen nonfocal, CT of the head did not reveal any acute changes, and her neurologic and medical examappeared more consistent with some type diffuse metabolic encephalopathic process. Her CBC, CMP, UAhave been okay, she is awaiting a chest x-ray currently. Family reports she does not usually get a long-lasting post dialysis mental status change. Chest x-ray does not show any acute cardiopulmonary disease. 10 30 p.m. reexamined the patient, there really has been no significant improvement. She is awake, alert, answers some questions fairly well and some questions she is unable to answer. I repeated a motor exam and she does have some cogwheeling, at times has a little bit of a tremor, it turns out she has been on multiple antipsychotic medications in the past. She may have a component of tardive dyskinesia, pseudo Parkinson's, Parkinson's, dystonia. She apparently ambulates at home independently,has a walker but does not like to use it. Daughter reports she was walking fairly well yesterday And today she has been to diffusely weak to have her get up and attempt ambulation. We will go ahead and discuss admission hospitalist, altered mental status, bronchitis, dehydration,possible tardive dyskinesia, possible dystonic Condition 10:00 p.m. call placed to hospitalist 10:30 p.m. discussed with hospitalist, Dr. Dial who accepts the patient to his service. Wally Linn Jr., MD 04/19/246 documented in this encounter Plan of Treatment Upcoming Encounters Date Type Department Care Team (Latest Contact Info) Description 07/13/2024 9:00 AM FABRIC CUTTER Hospital Encounter [facility] [address] [place] [address] Jaya Grier MD [address] [place] [address] DR GAINES [address] [place] [address] 07/13/2024 9:00 AM FABRIC CUTTER - 07/13/2024 9:30 AM FABRIC CUTTER Surgery [facility] [address] [place] [id number] Jaya Grier MD [address] [place] [address] DR GAINES [address] [place] [address] ESOPHAGOGASTRODUODENOSCOPY Pending Results Name Type Priority Associated Diagnoses Date /Time Basic metabolic panel Lab STAT 10:43 AM CDT Hepatic function panel Lab STAT 10:43 AM CDT Magnesium Lab STAT 04/21/2024 10: 43 AM CDT EEG Neurology Routine 04/21/2024 2:1 4 PM CDT Phosphorus Lab Routine 04/22/2024 8:3 4 AM CDT Scheduled Orders Name Type Priority Associated Diagnoses Orde r Schedule Basic metabolic panel Lab STAT Onc e for 1 Occurrences starting 04/21/2024 until 04/21/2024 Hepatic function panel Lab STAT On ce for 1 Occurrences starting 04/21/2024 until 04/21/2024 Magnesium Lab STAT Once for 1 Occ urrences starting 04/21/2024 until 04/21/2024 EEG Neurology Routine Once for 1 Occ urrences starting 04/21/2024 until 04/21/2024 Phosphorus Lab Routine Once for 1 Occ urrences starting 04/22/2024 until 04/22/2024 Scheduled Procedures Name Priority Associated Diagnoses Date/Ti me ESOPHAGOGASTRODUODENOSCOPY Anemia, unspecified type Gastritis without bleeding, unspecified chronicity, unspecified gastritis type 07/13/2024 9:00 AM FABRIC CUTTER COLONOSCOPY Iron deficiency anemia due to chronic blood loss Scheduled Referrals Name Type Priority Associated Diagnoses Order Schedule Ambulatory referral to Neurology Outpatient Referral Routine Unresponsive episode Expected: 05/07/2024 (Approximate), Expires: 04/23/2025 documented as of this encounter Procedures Procedure Name Priority Date/Time Associated Diagnosis Comments POCT GLUCOSE DEVICE Routine 04/23/2024 4 :39 PM CDT POCT GLUCOSE DEVICE Routine 04/23/2024 2 :02 PM CDT EGFR Routine 04/23/2024 1:16 PM CDT DIFFERENTIAL AUTO Routine 04/23/2024 1:1 6 PM CDT CBC WITH AUTO DIFFERENTIAL Routine 04/23/2024 1:16 PM CDT PHOSPHORUS Routine 04/23/2024 1:16 PM CDT BASIC METABOLIC PANEL Routine 04/23/2024 1:16 PM CDT POCT GLUCOSE DEVICE Routine 04/23/2024 8 :49 AM CDT HEMODIALYSIS Routine 04/23/2024 8:30 AM CDT POCT GLUCOSE DEVICE Routine 04/22/2024 8 :40 PM CDT POCT GLUCOSE DEVICE Routine 04/22/2024 5 :55 PM CDT POCT GLUCOSE DEVICE Routine 04/22/2024 12:15 PM CDT PULVERIZING AND SIFTING OPERATOR EVALUATE AND TREAT VIDEOFLUOROSCOPIC SWALLOW STUDY Routine 04/22/2024 12:10 PM CDT FL MODIFIED BARIUM SWALLOW W VIDEO IP Routine 04/22/2024 11:57 AM CDT POCT GLUCOSE DEVICE Routine 04/22/2024 8 :38 AM CDT EGFR Routine 04/22/2024 8:34 AM CDT DIFFERENTIAL AUTO Routine 04/22/2024 8:3 4 AM CDT CBC WITH AUTO DIFFERENTIAL Routine 04/22/2024 8:34 AM CDT PHOSPHORUS Routine 04/22/2024 8:34 AM CDT COMPREHENSIVE METABOLIC PANEL Routine 04/22/2024 8:34 AM CDT POCT GLUCOSE DEVICE Routine 04/21/2024 8 :34 PM CDT HEMOGLOBIN AND HEMATOCRIT STAT 04/21/2024 7:24 PM CDT POCT GLUCOSE DEVICE Routine 04/21/2024 5 :[address] HEAD WO CONTRAST ED Urgent/IP Urgent 04/21/2024 11:32 AM CDT POC BLOOD GAS AND CHEMISTRIES, ARTERIAL Routine 04/21/2024 10:46 AM CDT TROPONIN T HIGH-SENSITIVITY STAT 04/21/2024 10:43 AM CDT LACTATE STAT 04/21/2024 10:43 AM CDT EGFR STAT 04/21/2024 10:43 AM CDT DIFFERENTIAL AUTO STAT 04/21/2024 10:43 AM CDT PRO B-TYPE NATRIURETIC PEPTIDE STAT 04/21/2024 10:43 AM CDT THYROID FUNCTION CASCADE STAT 024 10:43 AM CDT CBC WITH AUTO DIFFERENTIAL STAT 04/21/2024 10:43 AM CDT HEPATITIS B SURFACE ANTIGEN STAT 04/21/2024 10:43 AM CDT MAGNESIUM STAT 04/21/2024 10:43 AM CDT HEPATIC FUNCTION PANEL STAT 10:43 AM CDT BASIC METABOLIC PANEL STAT 04/21/2024 10:43 AM CDT ECG 12-LEAD STAT 04/21/2024 10:35 AM CDT POCT GLUCOSE DEVICE Routine 04/21/2024 10:32 AM CDT EGFR Routine 04/21/2024 8:56 AM CDT DIFFERENTIAL AUTO Routine 04/21/2024 8:5 6 AM CDT CBC WITH AUTO DIFFERENTIAL Routine 04/21/2024 8:56 AM CDT COMPREHENSIVE METABOLIC PANEL Routine 04/21/2024 8:56 AM CDT POCT GLUCOSE DEVICE Routine 04/21/2024 7 :51 AM CDT POCT GLUCOSE DEVICE Routine 04/20/2024 8 :18 PM CDT HEMODIALYSIS Routine 04/20/2024 5:26 PM CDT POCT GLUCOSE DEVICE Routine 04/20/2024 4 :47 PM CDT MRI BRAIN WO CONTRAST IP Routine 04/20/2024 2:47 PM CDT POCT GLUCOSE DEVICE Routine 04/20/2024 12:17 PM CDT AMMONIA Add-On 04/20/2024 8:53 AM CDT POCT GLUCOSE DEVICE Routine 04/20/2024 8 :30 AM CDT EGFR Routine 04/20/2024 7:55 AM CDT DIFFERENTIAL AUTO Routine 04/20/2024 7:5 5 AM CDT CBC WITH AUTO DIFFERENTIAL Routine 04/20/2024 7:55 AM CDT COMPREHENSIVE METABOLIC PANEL Routine 04/20/2024 7:55 AM CDT INFLUENZA A/B, RSV, AND COVID-19 PCR STAT 04/19/2024 10:53 PM CDT BLOOD CULTURE STAT 04/19/2024 10:53 PM CDT BLOOD CULTURE STAT 04/19/2024 10:53 PM CDT POCT GLUCOSE DEVICE Routine 04/19/2024 7 :16 PM CDT XR CHEST 1 VIEW ED 04/19/2024 6:41 PM CDT TROPONIN T HIGH-SENSITIVITY 2-HOUR Timed 04/19/2024 6:27 PM CDT AMMONIA STAT 04/19/2024 6:27 PM CDT URINALYSIS AND REFLEX TO MICROSCOPIC AND CULTURE STAT 04/19/2024 5:20 PM CDT URINALYSIS, MICROSCOPIC ONLY STAT 04/19/2024 5:20 PM CDT ECG 12-LEAD STAT 04/19/2024 5:03 PM CDT TROPONIN T HIGH-SENSITIVITY SERIES (BASELINE, 2HR, 4HR, 6HR) STAT 04/19/2024 4:57 PM CDT EGFR STAT 04/19/2024 4:57 PM CDT DIFFERENTIAL AUTO STAT 04/19/2024 4:5 7 PM CDT CBC WITH AUTO DIFFERENTIAL STAT 04/19/2024 4:57 PM CDT APTT STAT 04/19/2024 4:57 PM CDT PROTIME-INR STAT 04/19/2024 4:57 PM CDT COMPREHENSIVE METABOLIC PANEL STAT 04/19/2024 4:57 PM CDT POCT GLUCOSE DEVICE Routine 04/19/2024 4 :[address] STROKE PROTOCOL WO CONTRAST Critical/Life- Threatening 04/19/2024 4:51 PM CDT documented in this encounter Results * POCT glucose (04/23/2024 4:39 PM CDT) Glucose, POC 150 70 - 199 mg/dL Comment:Testing performed by : [address] [id number] Blood 04/23/2024 4:39 PM CDT 04/23/2024 4:39 PM CDT us Cheryl Slater MD LAB POCT ORDERABLES - DE VICE Final Result Performing Organization Address [facility]/ZIP Co de Phone Number [address] [place] [address] * POCT glucose (04/23/2024 2:02 PM CDT) Glucose, POC 184 70 - 199 mg/dL Comment:Testing performed by : [address] [address] Blood 04/23/2024 2:02 PM CDT 04/23/2024 2:02 PM CDT us Cheryl Slater MD LAB POCT ORDERABLES - DE VICE Final Result Performing Organization Address City/[facility]/ZIP Co de Phone Number [address] [place] [address] * (ABNORMAL) eGFR (04/23/2024 1:16 PM CDT) [facility] eGFR 20(L) >=60 mL/min/1. 73 m2 Comment: [...] was last reviewed 2021. Testing performed by: [facility], [address] [place] [address]., [address] Blood 04/23/2024 1:16 PM CDT 04/23/2024 1:21 PM CDT us Cheryl Slater MD LAB BLOOD ORDERABLES Fin al Result NILSA [address] [facility] [place] [address] * Differential, auto (04/23/2024 1:16 PM CDT) [facility] Neutrophil abs 5.6 1.5 - 6.5 K/cumm Comment:Testing performed by : [address], [place]., [address] Imm gran abs 0.0 0.0 - 0.1 K/cumm [facility] Comment:Testing performed by : [address], [place]., [address] Lymphocyte abs 2.1 0.8 - 3.3 K/cumm [facility] Comment:Testing performed by : [address], [place]., [address] Monocyte abs 0.6 0.2 - 0.8 K/cumm [facility] Comment:Testing performed by : [address] [address] Eosinophil abs 0.1 0.0 - 0.5 K/cumm [facility] Comment:Testing performed by : [address] [address] Basophil abs 0.0 0.0 - 0.1 K/cumm [facility] Comment:Testing performed by : [address] [address] Neutrophil pct 67.0 % [facility] Comment: Interpretive Data Percent cell count reference ranges are not reported, since discordance with absolute values may lead to misinterpretation of CBC data. Current Interpretive Data was last revised on 2017. Testing performed by: [address] [address] Imm gran pct 0.5 % [facility] Comment: Interpretive Data Percent cell count reference ranges are not reported, since discordance with absolute values may lead to misinterpretation of CBC data. Current Interpretive Data was last revised on 2017. Testing performed by: [address] [address] Lymphocyte pct 24.7 % [facility] Comment: Interpretive Data Percent cell count reference ranges are not reported, since discordance with absolute values may lead to misinterpretation of CBC data. Current Interpretive Data was last revised on 2017. Testing performed by: [address] [address] Monocyte pct 6.6 % [facility] Comment: Interpretive Data Percent cell count reference ranges are not reported, since discordance with absolute values may lead to misinterpretation of CBC data. Current Interpretive Data was last revised on 2017. Testing performed by: [address] [address] Eosinophil pct 1.0 % NILSA RODRIGES Comment: Interpretive Data Percent cell count reference ranges are not reported, since discordance with absolute values may lead to misinterpretation of CBC data. Current Interpretive Data was last revised on 2017. Testing performed by: [address] [address] Basophil pct 0.2 % NILSA RODRIGES Comment: Interpretive Data Percent cell count reference ranges are not reported, since discordance with absolute values may lead to misinterpretation of CBC data. Current Interpretive Data was last revised on 2017. Testing performed by: [address] [address] Blood 04/23/2024 1:16 PM CDT 04/23/2024 1:21 PM CDT us Cheryl Slater MD LAB BLOOD ORDERABLES Fin al Result NILSA [address] [facility] [place] [address] * (ABNORMAL) Basic metabolic panel (04/23/2024 1:16 PM CDT) Sodium 130(L) 135 - 145 mmol/L Comment:Testing performed by : [address] [address] Potassium, pl 4.4 3.3 - 4.9 mmol/L NILSA RODRIGES Comment:Testing performed by : [address] [address] Chloride 94(L) 97 - 110 mmol/L NILSA RODRIGES Comment:Testing performed by : [address] [address] CO2 25 22 - 32 mmol/L NILSA RODRIGES Comment:Testing performed by : [address] [address] Anion gap 11 2 - 15 mmol/L NILSA Comment:Testing performed by : [address] [address] BUN 24 6 - 25 mg/dL NILSA Comment:Testing performed by : [address] [address] Creatinine 2.50(H) 0.60 - 1.10 mg/dL NILSA Comment:Testing performed by : [address] [address] Glucose 194 70 - 199 mg/dL NILSA [...] was last revised 2022. Testing performed by: [address] [address] Calcium 8.5 8.5 - 10.3 mg/dL NILSA Comment:Testing performed by : [address] [address] Blood 04/23/2024 1:16 PM CDT 04/23/2024 1:21 PM CDT us Cheryl Slater MD LAB BLOOD ORDERABLES Fin al Result NILSA [address] [facility] [place] [address] * (ABNORMAL) CBC with auto differential (04/23/2024 1:16 PM CDT) Pathologist [facility] WBC 8.3 3.8 - 9.9 K/cumm Comment:Testing performed by : [address] [address] Hgb 9.5(L) 11.9 - 15.5 g/dL NILSA Comment:Testing performed by : [address] [address] Hct 28.2(L) 35.6 - 45.5 % NILSA Comment:Testing performed by : [address] [address] Plt 176 150 - 400 K/cumm NILSA Comment:Testing performed by : [address] [address] MPV 10.5 9.1 - 12.3 fL NILSA Comment:Testing performed by : [address], [address] RBC 3.10(L) 3.90 - 5.20 M/cumm NILSA Comment:Testing performed by : [address], [address] MCV 91.0 81.3 - 96.4 fL NILSA Comment:Testing performed by : [address], [address] MCH 30.6 27.1 - 33.3 pg NILSA Comment:Testing performed by : [address] [address] MCHC 33.7 32.3 - 35.7 g/dL NILSA Comment:Testing performed by : [address], [address] RDW CV 14.4 11.1 - 14.9 % NILSA Comment:Testing performed by : [address], [address] RDW SD 47.1 35.7 - 48.1 fL NILSA Comment:Testing performed by : [address] [address] NRBC abs 0.02(H) 0.00 - 0.01 K/cumm NILSA Comment:Testing performed by : [address] [address] Blood 04/23/2024 1:16 PM CDT 04/23/2024 1:21 PM CDT Cheryl Slater MD LAB BLOOD ORDERABLES Fin al Result Performing Organization Address City/[facility] Co de Phone Number NILSA [facility] [place] [address] * (ABNORMAL) Phosphorus (04/23/2024 1:16 PM CDT) Phosphorus, pl 1.9(L) 2.3 - 4.5 mg/dL Comment:Testing performed by : [address] [address] Blood 04/23/2024 1:16 PM CDT 04/23/2024 1:21 PM CDT Cheryl Slater MD LAB BLOOD ORDERABLES Fin al Result Performing Organization Address [facility] Co de Phone Number NILSA [address] [address] * POCT glucose (04/23/2024 8:49 AM CDT) Glucose, POC 115 70 - 199 mg/dL Comment:Testing performed by : [address] [address] Blood 04/23/2024 8:49 AM CDT 04/23/2024 8:49 AM CDT Cheryl Slater MD LAB POCT ORDERABLES - DE VICE Final Result Performing Organization Address City/[facility] Co de Phone Number NILSA [facility] [place] [address] * POCT glucose (04/22/2024 8:40 PM CDT) Glucose, POC 174 70 - 199 mg/dL Comment:Testing performed by : [address] [address] Glucose comment 1 Use This Result NILSA RODRIGES Comment:Testing performed by : [address] [address] Glucose comment 2 RN/MD Notified NILSA Comment:Testing performed by : [address] [address] Blood 04/22/2024 8:40 PM CDT 04/22/2024 8:40 PM CDT Cheryl Slater MD LAB POCT ORDERABLES - DE VICE Final Result Performing Organization Address City/[facility] Co de Phone Number NILSA [address] [place] [address] * POCT glucose (04/22/2024 5:55 PM CDT) Glucose, POC 110 70 - 199 mg/dL Comment:Testing performed by : [address] [address] Blood 04/22/2024 5:55 PM CDT 04/22/2024 5:55 PM CDT Cheryl Slater MD LAB POCT ORDERABLES - DE VICE Final Result Performing Organization Address [facility] Co de Phone Number NILSA [address] [place] [address] * (ABNORMAL) POCT glucose (04/22/2024 12:15 PM CDT) Glucose, POC 226(H) 70 - 199 mg/dL Comment:Testing performed by : [address] [address] Glucose comment 1 Use This Result NILSA RODRIGES Comment:Testing performed by : [address] [address] Glucose comment 2 RN/MD Notified NILSA Comment:Testing performed by : [address] [address] Blood 04/22/2024 12:1 5 PM CDT 04/22/2024 12:15 PM CDT us Cheryl Slater MD LAB POCT ORDERABLES - DE VICE Final Result NILSA MH [address] [facility] [place] [address] * PULVERIZING AND SIFTING OPERATOR Evaluate and Treat (VFSS) (04/22/2024 12:10 PM CDT) Narrative Becky Gold PULVERIZING AND SIFTING OPERATOR - 04/22/2024 12:10 PM CDT Becky Gold PULVERIZING AND SIFTING OPERATOR ? 04/22/2024 ??1:21 PM [facility] Inpatient Speech-Language Pathology Modified Barium Swallow Study PRIOR MEDICAL HISTORY/GENERAL INFORMATION Patient Name/: ??Sixto Chakraborty / 1950 Age/Sex: ??73 y.o. / female Room/Date of Service: ??@ROOM@ / 04/22/2024 Admit Date/Primary Hospital Diagnosis: 04/19/2024 / Metabolic encephalopathy [G93.41] Debility [R53.81] Weakness [R53.1] Mild protein-calorie malnutrition (CMS/HCC) (HCC) [E44.1] Altered mental status, unspecified altered mental status type [R41.82] ? Referring Provider: Cheryl Slater MD ? HPI: Sixto Chakraborty is a 73 y.o. female with [...] ??(DNT) Consistencies Administered: Consistencies Administered: Thin liquids, Stites thickened liquids, Honey thickened liquids, Purees, Solids [...] and required additional liquid swallow ??Puree ??Honey ??Stites ??Thin ??Solids Oral Management: slow and prolonged [...] skilled ST after evaluation on this date) PULVERIZING AND SIFTING OPERATOR Frequency: Discharge from this Service Next Planned Visit: ??(n/a) Discharge Recommendations: Defer at this time Barriers to Discharge: defer to medical team Discharge Summary Statement If this is the last speech therapy visit, this serves as the discharge summary. Becky Gold M.S., [facility]-PULVERIZING AND SIFTING OPERATOR Goals established: 04/22/24 PULVERIZING AND SIFTING OPERATOR Care Plan Problems/Goals ?? None [employer] Utilized: NO This patient was identified by name and on this visit. PULVERIZING AND SIFTING OPERATOR Start Time: 1145 PULVERIZING AND SIFTING OPERATOR Stop Time: 1210 PULVERIZING AND SIFTING OPERATOR Time Calculation (min): 25 min us Cheryl Slater MD PULVERIZING AND SIFTING OPERATOR ORDERABLES Final Re sult * [place] Modified [...] by ??Jose Duvall D.O. AP: CLEMENTE D: ??04/22/2024 12:36 PM T: ??04/22/2024 12:36 PM Report ID: [id number] Reading Location: ??[id number] Procedure Note Jose Duvall, DO - 04/22/2024 [...] Jose Duvall D.O. AP: AP Report ID: [id number] Reading Location: [place] [address] us Cheryl Slater MD IMG FLUOROSCOPY PROCEDUR ES Final Result * POCT glucose (04/22/2024 8:38 AM CDT) Glucose, POC 130 70 - 199 mg/dL Comment:Testing performed by : [address] [address] Glucose comment 1 Use This Result NILSA RODRIGES Comment:Testing performed by : [address] [address] Glucose comment 2 RN/MD Notified NILSA RODRIGES Comment:Testing performed by : [address] [address] Blood 04/22/2024 8:38 AM CDT 04/22/2024 8:38 AM CDT us Cheryl Slater MD LAB POCT ORDERABLES - DE VICE Final Result NILSA RODRIGES [address] [facility] [place] [address] * Phosphorus (04/22/2024 8:34 AM CDT) Phosphorus, pl 3.7 2.3 - 4.5 mg/dL Comment:Testing performed by : [facility], [address] [place] [address]., [address] Blood 04/22/2024 8:34 AM CDT 04/22/2024 9:26 AM CDT us Cheryl Slater MD LAB BLOOD ORDERABLES Fin al Result CARLOS ENRIQUEIFT [address] [facility] [place] [address] * (ABNORMAL) eGFR (04/22/2024 8:34 AM CDT) Pathologist [facility] eGFR 9(L) >=60 mL/min/1. 73 m2 Comment: [...] was last reviewed 2021. Testing performed by: [address] [address] Blood 04/22/2024 8:34 AM CDT 04/22/2024 9:26 AM CDT us Cheryl Slater MD LAB BLOOD ORDERABLES Fin al Result [facility] [address] [facility] [place] [address] * Differential, auto (04/22/2024 8:34 AM CDT) Neutrophil abs 5.8 1.5 - 6.5 K/cumm Comment:Testing performed by : [address] [address] Imm gran abs 0.0 0.0 - 0.1 K/cumm NILSA Comment:Testing performed by : [address] [address] Lymphocyte abs 2.3 0.8 - 3.3 K/cumm NILSA Comment:Testing performed by : [address] [address] Monocyte abs 0.6 0.2 - 0.8 K/cumm NILSA Comment:Testing performed by : [address] [address] Eosinophil abs 0.1 0.0 - 0.5 K/cumm NILSA Comment:Testing performed by : [address] [address] Basophil abs 0.0 0.0 - 0.1 K/cumm NILSA Comment:Testing performed by : [address] [address] Neutrophil pct 66.3 % NILSA Comment: Interpretive Data Percent cell count reference ranges are not reported, since discordance with absolute values may lead to misinterpretation of CBC data. Current Interpretive Data was last revised on 2017. Testing performed by: [address] [address] Imm gran pct 0.2 % [facility] Comment: Interpretive Data Percent cell count reference ranges are not reported, since discordance with absolute values may lead to misinterpretation of CBC data. Current Interpretive Data was last revised on 2017. Testing performed by: [address] [address] Lymphocyte pct 26.0 % [facility] Comment: Interpretive Data Percent cell count reference ranges are not reported, since discordance with absolute values may lead to misinterpretation of CBC data. Current Interpretive Data was last revised on 2017. Testing performed by: [address] [address] Monocyte pct 6.4 % [facility] Comment: Interpretive Data Percent cell count reference ranges are not reported, since discordance with absolute values may lead to misinterpretation of CBC data. Current Interpretive Data was last revised on 2017. Testing performed by: [address] [address] Eosinophil pct 0.9 % [facility] Comment: Interpretive Data Percent cell count reference ranges are not reported, since discordance with absolute values may lead to misinterpretation of CBC data. Current Interpretive Data was last revised on 2017. Testing performed by: [address] [address] Basophil pct 0.2 % [facility] Comment: Interpretive Data Percent cell count reference ranges are not reported, since discordance with absolute values may lead to misinterpretation of CBC data. Current Interpretive Data was last revised on 2017. Testing performed by: [address] [address] Blood 04/22/2024 8:34 AM CDT 04/22/2024 9:25 AM CDT us Cheryl Slater MD LAB BLOOD ORDERABLES Fin al Result NILSA RODRIGES [address] [facility] [place] [address] * (ABNORMAL) Comprehensive metabolic panel (04/22/2024 8:34 AM CDT) [facility] Sodium 137 135 - 145 mmol/L Comment:Testing performed by : [facility], [address] [place] [address], [place]., [address] Potassium, pl 4.6 3.3 - 4.9 mmol/L NILSA Comment: Delta - Results Reviewed Testing performed by: [facility], [address] [place] [address], [place]., [address] Chloride 98 97 - 110 mmol/L NILSA Comment:Testing performed by : [address], [place]., [address] CO2 21(L) 22 - 32 mmol/L NILSA Comment:Testing performed by : [address], [place]., [address] Anion gap 18(H) 2 - 15 mmol/L NILSA Comment:Testing performed by : [address], [place]., [address] BUN 53(H) 6 - 25 mg/dL NILSA Comment:Testing performed by : [address], [place]., [address] Creatinine 4.70(H) 0.60 - 1.10 mg/dL NILSA Comment:Testing performed by : [address], [place]., [address] Glucose 134 70 - 199 mg/dL NILSA [...] was last revised 2022. Testing performed by: [address], [place]., [address] Calcium 9.6 8.5 - 10.3 mg/dL NILSA Comment:Testing performed by : [address], [place]., [address] Bilirubin, total 0.2 0.1 - 1.2 mg/dL NILSA RODRIGES Comment:Testing performed by : [address] [address] Protein, pl 7.7 6.5 - 8.5 g/dL NILSA RODRIGES Comment:Testing performed by : [address] [address] Albumin 3.7 3.5 - 5.0 g/dL NILSA RODRIGES Comment:Testing performed by : [address] [address] Alk phos 102 40 - 130 Units/L NILSA Comment:Testing performed by : [address] [address] ALT 21 7 - 45 Units/L NILSA Comment:Testing performed by : [address] [address] AST 14 10 - 45 Units/L NILSA Comment:Testing performed by : [address] [address] Blood 04/22/2024 8:34 AM CDT 04/22/2024 9:26 AM CDT us Cheryl Slater MD LAB BLOOD ORDERABLES Fin al Result NILSA [address] [facility] Department of Laboratories [place], [place] [id number] * (ABNORMAL) CBC with auto differential (04/22/2024 8:34 AM CDT) Pathologist [facility] WBC 8.7 3.8 - 9.9 K/cumm Comment:Testing performed by : [address] [address] Hgb 10.0(L) 11.9 - 15.5 g/dL NILSA RODRIGES Comment:Testing performed by : [address] [address] Hct 31.0(L) 35.6 - 45.5 % NILSA RODRIGES Comment:Testing performed by : [address] [address] Plt 199 150 - 400 K/cumm CERNER MH Comment:Testing performed by : [address] [address] MPV 11.2 9.1 - 12.3 fL NILSA RODRIGES Comment:Testing performed by : [address] [address] RBC 3.31(L) 3.90 - 5.20 M/cumm NILSA RODRIGES Comment:Testing performed by : [address] [address] MCV 93.7 81.3 - 96.4 fL NILSA Comment:Testing performed by : [address] [address] MCH 30.2 27.1 - 33.3 pg NILSA RODRIGES Comment:Testing performed by : [address] [address] MCHC 32.3 32.3 - 35.7 g/dL NILSA RODRIGES Comment:Testing performed by : [address], [address] RDW CV 14.4 11.1 - 14.9 % NILSA Comment:Testing performed by : [address], [address] RDW SD 49.1(H) 35.7 - 48.1 fL NILSA Comment:Testing performed by : [address] [address] NRBC abs 0.00 0.00 - 0.01 K/cumm NILSA Comment:Testing performed by : [address] [address] Blood 04/22/2024 8:34 AM CDT 04/22/2024 9:25 AM CDT us Cheryl Slater MD LAB BLOOD ORDERABLES Fin al Result NILSA RODRIGES [address] [facility] [place] [address] * POCT glucose (04/21/2024 8:34 PM CDT) Glucose, POC 167 70 - 199 mg/dL Comment:Testing performed by : [facility], [address] [place] [address]., [address] Glucose comment 1 Use This Result NILSA Comment:Testing performed by : [address] [address] Blood 04/21/2024 8:34 PM CDT 04/21/2024 8:34 PM CDT Cheryl Slater MD LAB POCT ORDERABLES - DE VICE Final Result Performing Organization Address City/[facility] Co de Phone Number NILSA [address] [address] * (ABNORMAL) Hemoglobin and hematocrit (04/21/2024 7:24 PM CDT) [facility] Hgb 10.1(L) 11.9 - 15.5 g/dL Comment:Testing performed by : [address] [address] Hct 30.6(L) 35.6 - 45.5 % NILSA Comment:Testing performed by : [address] [address] Blood 04/21/2024 7:24 PM CDT 04/21/2024 7:28 PM CDT Cheryl Slater MD LAB BLOOD ORDERABLES Fin al Result Performing Organization Address City/[facility]/ZIP Co de Phone Number [address] [place] [address] * POCT glucose (04/21/2024 5:55 PM CDT) Glucose, POC 135 70 - 199 mg/dL Comment:Testing performed by : [address] [address] Blood 04/21/2024 5:55 PM CDT 04/21/2024 5:55 PM CDT us Cheryl Slater MD LAB POCT ORDERABLES - DE VICE Final Result NILSA [address] [facility] [place] [address] * CT Head WO Contrast (04/21/2024 11:32 [...] Electronically signed by ??Robert Fay M.D. CH: KECIA D: ??04/21/2024 11:38 AM T: ??04/21/2024 11:38 AM Report ID: [id number] Reading Location: ??[id number] Procedure Note Robert Fay Jr., MD - [...] Robert Fay M.D. CH: KECIA Report ID: [id number] Reading Location: [place] [address] Shemar Feliz MD IMG CT PROCEDURES Final Result * (ABNORMAL) POC Blood Gas and Chemistries, Arterial - (04/21/2024 10:46 AM CDT) [facility] pH, art POC 7.49(H) 7.35 - 7.45 Comment:Testing performed by : [address] [address] pCO2, art POC 38 35 - 45 mmHg [facility] Comment:Testing performed by : [address] [address] pO2, art POC 91 83 - 108 mmHg [facility] Comment:Testing performed by : [address] [address] HCO3, art (Calc) POC 29 20 - 30 mmol/L [facility] Comment:Testing performed by : [address] [address] Base excess, art POC 5 mmol/L NILSA Comment: Interpretive Data No reference range established. Current interpretive data was last revised 2020. Testing performed by: [address] [address] Blood 04/21/2024 10:4 6 AM CDT 04/21/2024 10:46 AM CDT us Cheryl Slater MD LAB POCT ORDERABLES - DE VICE Final Result Performing Organization Address City/[facility]/ZIP Co de Phone Number NILSA [address] [facility] [place] [address] * (ABNORMAL) Hepatic function panel (04/21/2024 10:43 AM CDT) Bilirubin, total 0.2 0.1 - 1.2 mg/dL Comment:Testing performed by : [address] [address] Bilirubin, direct <0.2 0.1 - 0.3 mg/dL NILSA Comment:Testing performed by : [address] [address] Protein, pl 7.6 6.5 - 8.5 g/dL NILSA Comment:Testing performed by : [address] [address] Albumin 3.9 3.5 - 5.0 g/dL NILSA Comment:Testing performed by : [address] [address] Alk phos 152(H) 40 - 130 Units/L NILSA Comment:Testing performed by : [address] [address] ALT 36 7 - 45 Units/L NILSA Comment:Testing performed by : [address] [address] AST 24 10 - 45 Units/L NILSA Comment:Testing performed by : [address] [address] Blood 04/21/2024 10:4 3 AM CDT 04/21/2024 10:47 AM CDT Cheryl Slater MD LAB BLOOD ORDERABLES Fin al Result Performing Organization Address City/[facility]/ZIP Co de Phone Number NILSA [address] [facility] [place] [employer] [employer] [place] [address] * (ABNORMAL) Basic metabolic panel (04/21/2024 10:43 AM CDT) Sodium 138 135 - 145 mmol/L Comment:Testing performed by : [address] [address] Potassium, pl 3.5 3.3 - 4.9 mmol/L NILSA Comment:Testing performed by : [address] [address] Chloride 98 97 - 110 mmol/L NILSA Comment:Testing performed by : [address] [address] CO2 28 22 - 32 mmol/L NILSA Comment:Testing performed by : [address] [address] Anion gap 12 2 - 15 mmol/L NILSA Comment:Testing performed by : [address] [address] BUN 30(H) 6 - 25 mg/dL NILSA Comment:Testing performed by : [address] [address] Creatinine 2.40(H) 0.60 - 1.10 mg/dL NILSA Comment:Testing performed by : [address] [address] Glucose 181 70 - 199 mg/dL NILSA [...] was last revised 2022. Testing performed by: [address] [address] Calcium 9.2 8.5 - 10.3 mg/dL NILSA Comment:Testing performed by : [address] [place]., [address] Blood 04/21/2024 10:4 3 AM CDT 04/21/2024 10:47 AM CDT us Cheryl Slater MD LAB BLOOD ORDERABLES Fin al Result Performing Organization Address City/State/[facility] Co de Phone Number NILSA [address] [facility] [place] [address] * (ABNORMAL) eGFR (04/21/2024 10:43 AM CDT) eGFR 21(L) >=60 mL/min/1. 73 m2 Comment: [...] was last reviewed 2021. Testing performed by: [facility], [address] [place] [address]., [address] Blood 04/21/2024 10:4 3 AM CDT 04/21/2024 10:47 AM CDT Cheryl Slater MD LAB BLOOD ORDERABLES Fin al Result Performing Organization Address City/[facility] Co de Phone Number [facility] [address] [place] [address] * Magnesium (04/21/2024 10:43 AM CDT) Magnesium 1.8 1.4 - 2.5 mg/dL Comment:Testing performed by : [address] [address] Blood 04/21/2024 10:4 3 AM CDT 04/21/2024 10:47 AM CDT Cheryl Slater MD LAB BLOOD ORDERABLES Fin al Result Performing Organization Address [facility] de Phone Number [address] [place] [address] * (ABNORMAL) Differential, auto (04/21/2024 10:43 AM CDT) Neutrophil abs 8.1(H) 1.5 - 6.5 K/cumm Comment:Testing performed by : [address] [address] Imm gran abs 0.1 0.0 - 0.1 K/cumm NILSA Comment:Testing performed by : [address] [address] Lymphocyte abs 3.2 0.8 - 3.3 K/cumm NILSA Comment:Testing performed by : [address] [address] Monocyte abs 0.7 0.2 - 0.8 K/cumm NILSA Comment:Testing performed by : [address] [address] Eosinophil abs 0.1 0.0 - 0.5 K/cumm NILSA Comment:Testing performed by : [address] [address] Basophil abs 0.0 0.0 - 0.1 K/cumm NILSA Comment:Testing performed by : [address] [address] Neutrophil pct 66.1 % NILSA Comment: Interpretive Data Percent cell count reference ranges are not reported, since discordance with absolute values may lead to misinterpretation of CBC data. Current Interpretive Data was last revised on 2017. Testing performed by: [address] [address] Imm gran pct 0.6 % NILSA Comment: Interpretive Data Percent cell count reference ranges are not reported, since discordance with absolute values may lead to misinterpretation of CBC data. Current Interpretive Data was last revised on 2017. Testing performed by: [address] [address] Lymphocyte pct 26.4 % [facility] Comment: Interpretive Data Percent cell count reference ranges are not reported, since discordance with absolute values may lead to misinterpretation of CBC data. Current Interpretive Data was last revised on 2017. Testing performed by: [address] [address] Monocyte pct 5.8 % [facility] Comment: Interpretive Data Percent cell count reference ranges are not reported, since discordance with absolute values may lead to misinterpretation of CBC data. Current Interpretive Data was last revised on 2017. Testing performed by: [address] [address] Eosinophil pct 0.9 % [facility] Comment: Interpretive Data Percent cell count reference ranges are not reported, since discordance with absolute values may lead to misinterpretation of CBC data. Current Interpretive Data was last revised on 2017. Testing performed by: [address] [address] Basophil pct 0.2 % [facility] Comment: Interpretive Data Percent cell count reference ranges are not reported, since discordance with absolute values may lead to misinterpretation of CBC data. Current Interpretive Data was last revised on 2017. Testing performed by: [address] [address] Blood 04/21/2024 10:4 3 AM CDT 04/21/2024 10:47 AM CDT Shemar Feliz MD LAB BLOOD ORDERABLES Fi nal Result Performing Organization Address [facility] Co de Phone Number [address] [address] * Thyroid Function [place] (04/21/2024 10:43 AM CDT) [facility] TSH 2.25 0.30 - 4.20 mcIUnit/mL Comment:Testing performed by : [facility], [address] [place] [address]., [address] Blood 04/21/2024 10:4 3 AM CDT 04/21/2024 10:47 AM CDT Shemar Feliz MD LAB BLOOD ORDERABLES Fi nal Result Performing Organization Address [facility] de Phone Number [address] [place] [address] * (ABNORMAL) Pro B-type natriuretic peptide (04/21/2024 10:43 AM CDT) [facility] NT-proBNP 881(H) <=300 pg/mL Comment: Interpretive Comments: [...] Last Revised Date: 2018. Testing performed by: [facility], [address] [place] [address]., [address] Blood 04/21/2024 10:4 3 AM CDT 04/21/2024 10:47 AM CDT us Shemar Feliz MD LAB BLOOD ORDERABLES [facility] Result [facility] [address] [facility] [place] [address] * (ABNORMAL) Troponin T high-sensitivity (04/21/2024 10:43 AM CDT) Trop T hs 60(H) <=14 ng/L Comment: Interpretive Data For further hscTnT resources including the diagnostic algorithm and an aid in interpretation, copy and paste this link: https://nrl.testcatalog.org/show/hsTrop Current Interpretive Data last revised 2020. Testing performed by: [address] [address] Blood 04/21/2024 10:4 3 AM CDT 04/21/2024 10:47 AM CDT us Shemar Feliz MD LAB BLOOD ORDERABLES Fi nal Result [facility] [address] [facility] [place] [address] * (ABNORMAL) CBC with auto differential (04/21/2024 10:43 AM CDT) WBC 12.2(H) 3.8 - 9.9 K/cumm Comment:Testing performed by : [address] [address] Hgb 9.9(L) 11.9 - 15.5 g/dL NILSA Comment:Testing performed by : [address] [address] Hct 30.0(L) 35.6 - 45.5 % NILSA Comment:Testing performed by : [address] [address] Plt 204 150 - 400 K/cumm NILSA Comment:Testing performed by : [address] [address] MPV 10.7 9.1 - 12.3 fL NILSA Comment:Testing performed by : [address] [address] RBC 3.27(L) 3.90 - 5.20 M/cumm NILSA Comment:Testing performed by : [address] [address] MCV 91.7 81.3 - 96.4 fL NILSA Comment:Testing performed by : [address] [address] MCH 30.3 27.1 - 33.3 pg NILSA Comment:Testing performed by : [address] [address] MCHC 33.0 32.3 - 35.7 g/dL NILSA RODRIGES Comment:Testing performed by : [address], [address] RDW CV 14.4 11.1 - 14.9 % NILSA RODRIGES Comment:Testing performed by : [address], [address] RDW SD 48.4(H) 35.7 - 48.1 fL NILSA Comment:Testing performed by : [address] [address] NRBC abs 0.00 0.00 - 0.01 K/cumm NILSA Comment:Testing performed by : [address], [address] Blood 04/21/2024 10:4 3 AM CDT 04/21/2024 10:47 AM CDT Shemar Feliz MD LAB BLOOD ORDERABLES Fi nal Result Performing Organization Address City/[facility] Co de Phone Number [address] [place] [address] * Lactate (04/21/2024 10:43 AM CDT) [facility] Lactate 1.8 0.7 - 2.0 mmol/L Comment:Testing performed by : [address], [address] Blood 04/21/2024 10:4 3 AM CDT 04/21/2024 10:47 AM CDT Shemar Feliz MD LAB BLOOD ORDERABLES Fi nal Result Performing Organization Address City/[facility] Co de Phone Number [address] [place] [employer] [place] [address] * Hepatitis B Surface Antigen Blood (04/21/2024 10:43 AM CDT) Pathologist [facility] HepBsAg Nonreactive Nonreactive Blood 04/21/2024 10:4 3 AM CDT 04/21/2024 12:45 PM CDT us Markie Ryan MD LAB MICROBIOLOGY - GENERAL OR DERABLES Final Result NILSA [facility] [place] [address] * ECG 12 lead (04/21/2024 10:35 AM CDT) Pathologist [facility] Ventricular Rate EKG/Min [address] [facility] Atrial Rate 84 BPM [facility] NC-Interval (MSEC) [address] [facility] QRS-Interval (MSEC) [address] [facility] QT-Interval (MSEC) [address] [facility] QTc 484 ms [facility] P [place] [address] [facility] R [place] [address] [facility] T [place] [address] [facility] Diagnosis Normal sinus rhythm Normal ECG When compared with ECG of 19-APR-2024 17:03, No significant change was found Confirmed by DIAMOND DUVALL M.D. ([id number]) on 04/21/2024 11:31:25 PM [facility] 04/21/2024 10:3 5 AM CDT 04/21/2024 11:31 PM CDT us Cheryl Slater MD ECG ORDERABLES Final Re sult Performing Organization Address [facility]/ZIP Co de Phone Number [facility] * POCT glucose (04/21/2024 10:32 AM CDT) Pathologist [facility] Glucose, POC 168 70 - 199 mg/dL Comment:Testing performed by : [facility], [address] [place] [address]., [address] Blood 04/21/2024 10:3 2 AM CDT 04/21/2024 10:32 AM CDT Cheryl Slater MD LAB POCT ORDERABLES - DE VICE Final Result Performing Organization Address City/[facility]/ZIP Co de Phone Number NILSA [facility]4 [facility] [place] [address] * (ABNORMAL) eGFR (04/21/2024 8:56 AM CDT) [facility] eGFR 10(L) >=60 mL/min/1. 73 m2 Comment: [...] was last reviewed 2021. Testing performed by: [facility], [address] [place] [address]., [address] Blood 04/21/2024 8:56 AM CDT 04/21/2024 9:36 AM CDT us Cheryl Slater MD LAB BLOOD ORDERABLES Fin al Result NILSA [address] [facility] [place] [address] * Differential, auto (04/21/2024 8:56 AM CDT) Neutrophil abs 6.2 1.5 - 6.5 K/cumm Comment:Testing performed by : [address], [place]., [address] Imm gran abs 0.0 0.0 - 0.1 K/cumm [facility] Comment:Testing performed by : [address], [place]., [address] Lymphocyte abs 2.2 0.8 - 3.3 K/cumm [facility] Comment:Testing performed by : [address], [place]., [address] Monocyte abs 0.6 0.2 - 0.8 K/cumm [facility] Comment:Testing performed by : [address], [place]., [address] Eosinophil abs 0.1 0.0 - 0.5 K/cumm [facility] Comment:Testing performed by : [address] [address] Basophil abs 0.0 0.0 - 0.1 K/cumm [facility] Comment:Testing performed by : [address] [address] Neutrophil pct 67.9 % [facility] Comment: Interpretive Data Percent cell count reference ranges are not reported, since discordance with absolute values may lead to misinterpretation of CBC data. Current Interpretive Data was last revised on 2017. Testing performed by: [address] [address] Imm gran pct 0.4 % [facility] Comment: Interpretive Data Percent cell count reference ranges are not reported, since discordance with absolute values may lead to misinterpretation of CBC data. Current Interpretive Data was last revised on 2017. Testing performed by: [address] [address] Lymphocyte pct 24.5 % [facility] Comment: Interpretive Data Percent cell count reference ranges are not reported, since discordance with absolute values may lead to misinterpretation of CBC data. Current Interpretive Data was last revised on 2017. Testing performed by: [address] [address] Monocyte pct 6.0 % [facility] Comment: Interpretive Data Percent cell count reference ranges are not reported, since discordance with absolute values may lead to misinterpretation of CBC data. Current Interpretive Data was last revised on 2017. Testing performed by: [address] [address] Eosinophil pct 1.0 % NILSA Comment: Interpretive Data Percent cell count reference ranges are not reported, since discordance with absolute values may lead to misinterpretation of CBC data. Current Interpretive Data was last revised on 2017. Testing performed by: [address] [address] Basophil pct 0.2 % NILSA Comment: Interpretive Data Percent cell count reference ranges are not reported, since discordance with absolute values may lead to misinterpretation of CBC data. Current Interpretive Data was last revised on 2017. Testing performed by: [address] [address] Blood 04/21/2024 8:56 AM CDT 04/21/2024 9:36 AM CDT us Cheryl Slater MD LAB BLOOD ORDERABLES Fin al Result [facility] [address] [facility] Department of Laboratories [place], [place] [id number] * (ABNORMAL) Comprehensive metabolic panel (04/21/2024 8:56 AM CDT) Sodium 139 135 - 145 mmol/L Comment:Testing performed by : [address] [address] Potassium, pl 5.0(H) 3.3 - 4.9 mmol/L NILSA Comment:Testing performed by : [address] [address] Chloride 101 97 - 110 mmol/L NILSA Comment:Testing performed by : [address] [address] CO2 25 22 - 32 mmol/L NILSA Comment:Testing performed by : [address] [address] Anion gap 13 2 - 15 mmol/L NILSA Comment:Testing performed by : [address] [address] BUN 65(H) 6 - 25 mg/dL NILSA Comment:Testing performed by : [address] [address] Creatinine 4.60(H) 0.60 - 1.10 mg/dL NILSA Comment:Testing performed by : [address] [address] Glucose 163 70 - 199 mg/dL [facility] Comment: Interpretive Data Fasting glucose >/= 126 [...] was last revised 2022. Testing performed by: [address] [address] Calcium 9.3 8.5 - 10.3 mg/dL NILSA Comment:Testing performed by : [address] [address] Bilirubin, total <0.2 0.1 - 1.2 mg/dL NILSA Comment:Testing performed by : [address] [address] Protein, pl 6.7 6.5 - 8.5 g/dL NILSA Comment:Testing performed by : [address] [address] Albumin 3.6 3.5 - 5.0 g/dL NILSA Comment:Testing performed by : [address] [address] Alk phos 137(H) 40 - 130 Units/L NILSA Comment:Testing performed by : [address] [address] ALT 32 7 - 45 Units/L NILSA Comment:Testing performed by : [address] [address] AST 19 10 - 45 Units/L NILSA Comment:Testing performed by : [address] [address] Blood 04/21/2024 8:56 AM CDT 04/21/2024 9:36 AM CDT us Cheryl Slater MD LAB BLOOD ORDERABLES Fin al Result [facility] [address] [facility] [place] [address] * (ABNORMAL) CBC with auto differential (04/21/2024 8:56 AM CDT) WBC 9.1 3.8 - 9.9 K/cumm Comment:Testing performed by : [address] [address] Hgb 9.3(L) 11.9 - 15.5 g/dL NILSA Comment:Testing performed by : [address] [address] Hct 27.8(L) 35.6 - 45.5 % NILSA Comment:Testing performed by : [address] [address] Plt 199 150 - 400 K/cumm NILSA Comment:Testing performed by : [address] [address] MPV 10.7 9.1 - 12.3 fL NILSA Comment:Testing performed by : [address] [address] RBC 2.98(L) 3.90 - 5.20 M/cumm NILSA Comment:Testing performed by : [address] [address] MCV 93.3 81.3 - 96.4 fL NILSA Comment:Testing performed by : [address] [address] MCH 31.2 27.1 - 33.3 pg NILSA RODRIGES Comment:Testing performed by : [facility], [address] [place] [address]., [address] MCHC 33.5 32.3 - 35.7 g/dL NILSA RODRIGES Comment:Testing performed by : [address] [address] RDW CV 14.4 11.1 - 14.9 % NILSA RODRIGES Comment:Testing performed by : [address] [address] RDW SD 49.0(H) 35.7 - 48.1 fL NILSA RODRIGES Comment:Testing performed by : [address] [address] NRBC abs 0.00 0.00 - 0.01 K/cumm NILSA RODRIGES Comment:Testing performed by : [address] [address] Blood 04/21/2024 8:56 AM CDT 04/21/2024 9:36 AM CDT us Cheryl Slater MD LAB BLOOD ORDERABLES Fin al Result Performing Organization Address City/State/[facility] Co de Phone Number NILSA [address] [facility] [place] [address] * POCT glucose (04/21/2024 7:51 AM CDT) [facility] Glucose, POC 193 70 - 199 mg/dL Comment:Testing performed by : [address] [address] Glucose comment 1 Use This Result NILSA RODRIGES Comment:Testing performed by : [address] [address] Glucose comment 2 RN/MD Notified NILSA RODRIGES Comment:Testing performed by : [address] [address] Blood 04/21/2024 7:51 AM CDT 04/21/2024 7:51 AM CDT us Cheryl Slater MD LAB POCT ORDERABLES - DE VICE Final Result Performing Organization Address [facility] Co de Phone Number NILSA [address] [place] [address] * (ABNORMAL) POCT glucose (04/20/2024 8:18 PM CDT) Glucose, POC 209(H) 70 - 199 mg/dL Comment:Testing performed by : [address] [address] Glucose comment 1 Use This Result NILSA Comment:Testing performed by : [address] [address] Blood 04/20/2024 8:18 PM CDT 04/20/2024 8:18 PM CDT us Cheryl Slater MD LAB POCT ORDERABLES - DE VICE Final Result Performing Organization Address [facility] Co de Phone Number CARLOS ENRIQUE[address] [address] * (ABNORMAL) POCT glucose (04/20/2024 4:47 PM CDT) Glucose, POC 204(H) 70 - 199 mg/dL Comment:Testing performed by : [address] [address] Blood 04/20/2024 4:47 PM CDT 04/20/2024 4:47 PM CDT us Cheryl Slater MD LAB POCT ORDERABLES - DE VICE Final Result Performing Organization Address City/[facility]/ZIP Co de Phone Number CARLOS ENRIQUE[address] [place] [address] * MRI Brain WO Contrast (04/20/2024 2:47 [...] PM T: ??04/20/2024 3:26 PM Report ID: [id number] Reading Location: ??[id number] Procedure Note Jose Duvall DO - 04/20/2024 [...] Jose Duvall D.O. AP: CLEMENTE Report ID: [id number] Reading Location: [id number] Cheryl Slater MD IMG MRI PROCEDURES Final Result * POCT glucose (04/20/2024 12:17 PM CDT) Glucose, POC 196 70 - 199 mg/dL Comment:Testing performed by : [address] [address] Blood 04/20/2024 12:1 7 PM CDT 04/20/2024 12:17 PM CDT Cheryl Slater MD LAB POCT ORDERABLES - DE VICE Final Result Performing Organization Address [facility] Co ut Phone Number CARLOS ENRIQUE[address] [place] [address] * Ammonia (04/20/2024 8:53 AM CDT) Ammonia 26 <=50 mcmol/L Comment: Please note on 2023 the unit of measure changed from mcg/dL to mcmol/L. Current Interpretive Data was last revised on 2023. Testing performed by: [address] [address] Blood 04/20/2024 8:53 AM CDT 04/20/2024 9:00 AM CDT Cheryl Slater MD LAB BLOOD ORDERABLES Fin al Result Performing Organization Address City/[facility] Co de Phone Number [address] [place] [address] * POCT glucose (04/20/2024 8:30 AM CDT) Glucose, POC 119 70 - 199 mg/dL Comment:Testing performed by : [address] [address] Blood 04/20/2024 8:30 AM CDT 04/20/2024 8:30 AM CDT us Cheryl Slater MD LAB POCT ORDERABLES - DE VICE Final Result Performing Organization Address City/[facility] Phone Number NILSA MH [address] [facility] [place] [address] * (ABNORMAL) eGFR (04/20/2024 7:55 AM CDT) [...] was last reviewed 2021. Testing performed by: [facility], [address] [place] [address], [place]., [address] Blood 04/20/2024 7:55 AM CDT 04/20/2024 8:17 AM CDT us Mir Dial DO LAB BLOOD OR DERABLES Final Result NILSA [address] [facility] [place] [address] * (ABNORMAL) Differential, auto (04/20/2024 7:55 AM CDT) Neutrophil abs 7.5(H) 1.5 - 6.5 K/cumm Comment:Testing performed by : [address] [address] Imm gran abs 0.0 0.0 - 0.1 K/cumm NILSA Comment:Testing performed by : [address] [address] Lymphocyte abs 2.2 0.8 - 3.3 K/cumm NILSA Comment:Testing performed by : [address] [address] Monocyte abs 0.6 0.2 - 0.8 K/cumm NILSA Comment:Testing performed by : [address] [address] Eosinophil abs 0.1 0.0 - 0.5 K/cumm NILSA Comment:Testing performed by : [address] [address] Basophil abs 0.0 0.0 - 0.1 K/cumm [facility] Comment:Testing performed by : [address] [address] Neutrophil pct 72.3 % [facility] Comment: Interpretive Data Percent cell count reference ranges are not reported, since discordance with absolute values may lead to misinterpretation of CBC data. Current Interpretive Data was last revised on 2017. Testing performed by: [address] [address] Imm gran pct 0.3 % NILSA Comment: Interpretive Data Percent cell count reference ranges are not reported, since discordance with absolute values may lead to misinterpretation of CBC data. Current Interpretive Data was last revised on 2017. Testing performed by: [address] [address] Lymphocyte pct 21.0 % NILSA Comment: Interpretive Data Percent cell count reference ranges are not reported, since discordance with absolute values may lead to misinterpretation of CBC data. Current Interpretive Data was last revised on 2017. Testing performed by: [address] [address] Monocyte pct 5.6 % NILSA Comment: Interpretive Data Percent cell count reference ranges are not reported, since discordance with absolute values may lead to misinterpretation of CBC data. Current Interpretive Data was last revised on 2017. Testing performed by: [address] [address] Eosinophil pct 0.6 % NILSA Comment: Interpretive Data Percent cell count reference ranges are not reported, since discordance with absolute values may lead to misinterpretation of CBC data. Current Interpretive Data was last revised on 2017. Testing performed by: [address] [address] Basophil pct 0.2 % NILSA Comment: Interpretive Data Percent cell count reference ranges are not reported, since discordance with absolute values may lead to misinterpretation of CBC data. Current Interpretive Data was last revised on 2017. Testing performed by: [address] [address] Blood 04/20/2024 7:55 AM CDT 04/20/2024 8:17 AM CDT Mir Dial DO LAB BLOOD OR DERABLES Final Result [facility] [address] [facility] Department of Laboratories [place], [place] [id number] * (ABNORMAL) Comprehensive metabolic panel (04/20/2024 7:55 AM CDT) Sodium 140 135 - 145 mmol/L Comment:Testing performed by : [address] [address] Potassium, pl 4.6 3.3 - 4.9 mmol/L NILSA Comment:Testing performed by : [address] [address] Chloride 103 97 - 110 mmol/L NILSA Comment:Testing performed by : [address], [place]., [address] CO2 25 22 - 32 mmol/L NILSA Comment:Testing performed by : [address] [address] Anion gap 12 2 - 15 mmol/L NILSA Comment:Testing performed by : [address] [address] BUN 34(H) 6 - 25 mg/dL NILSA Comment:Testing performed by : [address], [place]., [address] Creatinine 3.20(H) 0.60 - 1.10 mg/dL NILSA Comment:Testing performed by : [address] [address] Glucose 115 70 - 199 mg/dL NILSA [...] was last revised 2022. Testing performed by: [address] [address] Calcium 9.4 8.5 - 10.3 mg/dL NILSA Comment:Testing performed by : [address] [address] Bilirubin, total 0.2 0.1 - 1.2 mg/dL NILSA Comment:Testing performed by : [address] [address] Protein, pl 7.0 6.5 - 8.5 g/dL NILSA Comment:Testing performed by : [address] [address] Albumin 3.6 3.5 - 5.0 g/dL CERELLEN RODRIGES Comment:Testing performed by : [address] [address] Alk phos 106 40 - 130 Units/L NILSA RODRIGES Comment:Testing performed by : [address] [address] ALT 35 7 - 45 Units/L NILSA RORDIGES Comment:Testing performed by : [address] [address] AST 18 10 - 45 Units/L NILSA RODRIGES Comment:Testing performed by : [address] [address] Blood 04/20/2024 7:55 AM CDT 04/20/2024 8:17 AM CDT Mir Dial DO LAB BLOOD OR DERABLES Final Result NILSA [facility] [place] [address] * (ABNORMAL) CBC with auto differential (04/20/2024 7:55 AM CDT) WBC 10.3(H) 3.8 - 9.9 K/cumm Comment:Testing performed by : [address] [address] Hgb 9.7(L) 11.9 - 15.5 g/dL NILSA RODRIGES Comment:Testing performed by : [address] [address] Hct 29.9(L) 35.6 - 45.5 % NILSA RODRIGES Comment:Testing performed by : [address] [address] Plt 207 150 - 400 K/cumm NILSA RODRIGES Comment:Testing performed by : [address] [address] MPV 10.7 9.1 - 12.3 fL NILSA RODRIGES Comment:Testing performed by : [address] [address] RBC 3.20(L) 3.90 - 5.20 M/cumm NILSA RODRIGES Comment:Testing performed by : [address] [address] MCV 93.4 81.3 - 96.4 fL NILSA RODRIGES Comment:Testing performed by : [address] [address] MCH 30.3 27.1 - 33.3 pg NILSA RODRIGES Comment:Testing performed by : [address] [address] MCHC 32.4 32.3 - 35.7 g/dL NILSA RODRIGES Comment:Testing performed by : [address] [address] RDW CV 14.5 11.1 - 14.9 % NILSA RODRIGES Comment:Testing performed by : [address] [address] RDW SD 49.1(H) 35.7 - 48.1 fL NILSA Comment:Testing performed by : [address] [address] NRBC abs 0.00 0.00 - 0.01 K/cumm NILSA Comment:Testing performed by : [address] [address] Blood 04/20/2024 7:55 AM CDT 04/20/2024 8:17 AM CDT Mir Dial DO LAB BLOOD OR DERABLES Final Result Performing Organization Address City/State/[facility] Co ut Phone Number NILSA [address] [facility] Department of Laboratories [place], [place] [id number] * Influenza A/B, RSV, and COVID-19 PCR Nasopharyngeal (04/19/2024 10:53 PM CDT) COVID-19 RNA Negative Negative Comment:Testing performed by : [address] [address] Influenza A RNA Negative Negative NILSA Comment:Testing performed by : [address] [address] Influenza B RNA Negative Negative NILSA Comment:Testing performed by : [address], [place]., [address] RSV RNA Negative Negative NILSA RODRIGES Comment: Interpretive data: Testing performed by [facility]. This test is performed using the Pure life renal Xpert Xpress CoV-2/Flu/RSV plus assay. This is a multiplex, real-time reverse transcriptase PCR assay intended for the qualitative detection of nucleic acid from SARS-CoV-2, influenza A, influenza B, and respiratory syncytial virus. This assay has been cleared by the [place] Food and Drug administration. The performance characteristics have been verified by the [facility]. ??Results must be considered in the clinical context, and a negative result does not rule out infection. Interpretive Data last revised 2023 Testing performed by: [address] [address] Nasopharyngeal 04/19/2024 10 :53 PM CDT 04/19/2024 10:59 PM CDT Narrative NILSA RODRIGES - 04/20/2024 12:43 AM CDT Is the Patient experiencing symptoms consistent with COVID?->Unknown Mir Dial DO LAB MICROBIOLOGY - GENERAL ORDERABLES Final Result NILSA RODRIGES [address] [facility] [place] [address] * Blood culture Blood (04/19/2024 10:53 PM CDT) Report Final Report: No growth Comment:Testing performed by : [facility], [address] [place]., [address] Blood 04/19/2024 10:5 3 PM CDT 04/20/2024 3:27 AM CDT Narrative NILSA RODRIGES - 04/24/2024 7:01 AM FABRIC CUTTER Collection->Peripheral 1. ?Blood cultures are incubated for [...] organism identification may be performed using the Charitybuzzigene Gram-Positive Blood Culture Assay. This assay detects microbial DNA in positive blood culture broth via hybridization of target DNA to capture oligonucleotides on a microarray. This assay has been cleared by the [place] Food and Drug Administration and its performance characteristics have been verified by the [facility] Microbiology Laboratory. 5. ?For questions about this culture, contact the Microbiology Laboratory at [phone]. Interpretive data was last revised on 2019. Mir Dial DO LAB MICROBIOLOGY - GENERAL ORDERABLES Final Result NILSA [address] [facility] [place] [address] * Blood culture Blood (04/19/2024 10:53 PM CDT) Report Final Report: No growth Comment:Testing performed by : [facility], [address] [place]., [address] Blood 04/19/2024 10:5 3 PM CDT 04/20/2024 3:27 AM CDT Narrative NILSA - 04/24/2024 7:01 AM FABRIC CUTTER Collection->Peripheral 1. ?Blood cultures are incubated for [...] organism identification may be performed using the Charitybuzzigene Gram-Positive Blood Culture Assay. This assay detects microbial DNA in positive blood culture broth via hybridization of target DNA to capture oligonucleotides on a microarray. This assay has been cleared by the [place] Food and Drug Administration and its performance characteristics have been verified by the [facility] Microbiology Laboratory. 5. ?For questions about this culture, contact the Microbiology Laboratory at [phone]. Interpretive data was last revised on 2019. us Mir Dial DO LAB MICROBIOLOGY - GENERAL ORDERABLES Final Result Performing Organization Address City/[facility]/ZIP Co de Phone Number NILSA [address] [place], [place] [phone] * POCT glucose (04/19/2024 7:16 PM CDT) [facility] Glucose, POC 99 70 - 199 mg/dL Comment:Testing performed by : [address] [address] Glucose comment 1 Use This Result [facility] Comment:Testing performed by : [address] [address] Blood 04/19/2024 7:16 PM CDT 04/19/2024 7:16 PM CDT us Wally Linn Jr., MD LAB POCT ORDERABLES - D EVICE Final Result Performing Organization Address City/[facility]/ZIP Co de Phone Number NILSA [facility]2 [facility] Department of [place], [place] [phone] * XR Chest 1 Vw Portable (04/19/2024 [...] PM T: ??04/19/2024 7:40 PM Report ID: [id number] Reading Location: ??[id number] Procedure Note Mir Brooke MD - 04/19/2024 [...] Mir Brooke M.D. AR: KATHARINE Report ID: [id number] Reading Location: [place] [address] us Rehab Kyle YOUNG IMG XR PROCEDURES Final Result * Ammonia (04/19/2024 6:27 PM CDT) Ammonia 19 <=50 mcmol/L Comment: Please note on 2023 the unit of measure changed from mcg/dL to mcmol/L. Current Interpretive Data was last revised on 2023. Testing performed by: [address] [address] Blood 04/19/2024 6:27 PM CDT 04/19/2024 6:32 PM CDT Rehab Kyle YOUNG LAB BLOOD ORDERABLES Final Resu lt [facility] [address] [facility] [place] [address] * (ABNORMAL) Troponin T high-sensitivity 2-hour (04/19/2024 6:27 PM CDT) Trop T hs 63(H) <=14 ng/L Comment: Ref Range High Interpretive Data For further hscTnT resources including the diagnostic algorithm and an aid in interpretation, copy and paste this link: https://nrl.testcatalog.org/show/hsTrop Current Interpretive Data last revised 2020. Testing performed by: [address] [address] Trop T hs delta See Comment ng/L NILSA RODRIGES Comment: Inappropriate collection time to report a delta. Testing performed by: [address] [address] Trop T hs pct delta See Comment % NILSA RODRIGES Comment: Inappropriate collection time to report a delta. Testing performed by: [address] [address] Trop T hs interp See Comment NILSA RODRIGES Comment: Inappropriate collection time to report a delta. Testing performed by: [address] [address] Blood 04/19/2024 6:27 PM CDT 04/19/2024 6:32 PM CDT Rehab Kyle YOUNG LAB BLOOD ORDERABLES Final Resu lt Performing Organization Address City/State/[facility] Co de Phone Number NILSA [address] [facility] [place] [address] * (ABNORMAL) Urinalysis, microscopic only (04/19/2024 5:20 PM CDT) WBC, ur 0-5 0 - 5 /HPF Comment:Testing performed by : [address] [address] RBC, ur 3-5(A) 0 - 2 /HPF NILSA RODRIGES Comment:Testing performed by : [address] [address] Mucous, ur Present(A) NILSA RODRIGES Comment:Testing performed by : [address] [address] Culture Reflex Comment Reflex conditions for urine culture (WBC >10) not met. NILSA ORDRIGES Comment:Testing performed by : [address] [address] Urine 04/19/2024 5:20 PM CDT 04/19/2024 5:22 PM CDT us Rehab Kyle YOUNG LAB URINE ORDERABLES Final Resu lt NILSA [address] [facility] [place] [address] * (ABNORMAL) Urinalysis reflex to microscopic and culture Urine (04/19/2024 5:20 PM CDT) Color, ur Yellow Yellow Comment:Testing performed by : [address] [address] Clarity, ur Clear Clear NILSA Comment:Testing performed by : [address] [address] Specific gravity, ur 1.011 1.003 - 1.030 NILSA Comment:Testing performed by : [address] [address] pH, urine 7.0 NILSA Comment: Interpretive Data ? Urine pH is affected by diet, medications, systemic acid-base disturbances, and renal tubular function. ??pH may affect urinary stone formation. ??For example, urine pH below 6.0 may help reduce the tendency for calcium phosphate stones and pH greater than 6.0 may reduce the tendency for uric acid stone formation. Source: [facility] [place] Current Interpretive Data was last revised on 2017 Testing performed by: [address] [address] Protein, ur ql 2+(A) Negative NILSA Comment:Testing performed by : [address] [address] Glucose, ur ql Trace(A) Negative NILSA Comment:Testing performed by : [address] [address] Ketones, ur Negative Negative NILSA Comment:Testing performed by : [address] [address] Bilirubin, ur Negative Negative NILSA Comment:Testing performed by : [address] [address] Blood, ur Negative Negative NILSA RODRIGES Comment:Testing performed by : [address] [address] Urobilinogen, ur <2.0 <2.0 mg/dL NILSA RODRIGES Comment:Testing performed by : [facility], [address] [place] [address]., [address] Nitrite, ur Negative Negative NILSA RODRIGES Comment:Testing performed by : [address] [address] Leukocyte esterase, ur Negative Negative NILSA RODRIGES Comment:Testing performed by : [address] [address] UA reflex comment Reflex to microscopic UA will be performed. NILSA RODRIGES Comment:Testing performed by : [address] [address] Urine 04/19/2024 5:20 PM CDT 04/19/2024 5:22 PM CDT Rehab Kyle YOUNG LAB [facility] Final Result Performing Organization Address City/[facility]/ZIP Co de Phone Number NILSA [address] [facility] [place] [address] * ECG 12 lead (04/19/2024 5:03 PM CDT) Pathologist [facility] Ventricular Rate EKG/Min 77 BPM [facility] Atrial Rate [address] [facility] NC-Interval (MSEC) 150 ms [facility] QRS-Interval (MSEC) [address] [facility] QT-Interval (MSEC) 402 ms [facility] QTc [address] [facility] P [place] 72 degrees [facility] R [place] 11 degrees [facility] T [place] 43 degrees [facility] Diagnosis Normal sinus rhythm Normal ECG When compared with ECG of 31-JAN-2024 11:06, No significant change was found Confirmed by SANTO VAIL M.D. ([id number]) on 04/21/2024 9:54:07 AM [facility] 04/19/2024 5:03 PM CDT 04/21/2024 9:54 AM CDT Rehab Kyle YOUNG ECG ORDERABLES Final Result Performing Organization Address City/[facility]/ZIP Co de Phone Number [facility] * (ABNORMAL) eGFR (04/19/2024 4:57 PM CDT) [...] was last reviewed 2021. Testing performed by: [address] [address] Blood 04/19/2024 4:57 PM CDT 04/19/2024 5:02 PM CDT us Rehab Kyle YOUNG LAB BLOOD ORDERABLES Final Resu lt CARLOS ENRIQUEDSE [address] [facility] [place] [address] * (ABNORMAL) Differential, auto (04/19/2024 4:57 PM CDT) Pathologist [facility] Neutrophil abs 8.3(H) 1.5 - 6.5 K/cumm Comment:Testing performed by : [address] [address] Imm gran abs 0.1 0.0 - 0.1 K/cumm CERNER Comment:Testing performed by : [address] [address] Lymphocyte abs 2.1 0.8 - 3.3 K/cumm CERNER Comment:Testing performed by : [address] [address] Monocyte abs 0.6 0.2 - 0.8 K/cumm [facility] Comment:Testing performed by : [address], [place]., [address] Eosinophil abs 0.1 0.0 - 0.5 K/cumm [facility] Comment:Testing performed by : [address] [address] Basophil abs 0.0 0.0 - 0.1 K/cumm [facility] Comment:Testing performed by : [address] [address] Neutrophil pct 74.2 % [facility] Comment: Interpretive Data Percent cell count reference ranges are not reported, since discordance with absolute values may lead to misinterpretation of CBC data. Current Interpretive Data was last revised on 2017. Testing performed by: [address] [address] Imm gran pct 0.4 % CERNER Comment: Interpretive Data Percent cell count reference ranges are not reported, since discordance with absolute values may lead to misinterpretation of CBC data. Current Interpretive Data was last revised on 2017. Testing performed by: [address] [address] Lymphocyte pct 19.2 % CERNER Comment: Interpretive Data Percent cell count reference ranges are not reported, since discordance with absolute values may lead to misinterpretation of CBC data. Current Interpretive Data was last revised on 2017. Testing performed by: [address] [address] Monocyte pct 5.2 % CERNER Comment: Interpretive Data Percent cell count reference ranges are not reported, since discordance with absolute values may lead to misinterpretation of CBC data. Current Interpretive Data was last revised on 2017. Testing performed by: [address] [address] Eosinophil pct 0.7 % NILSA Comment: Interpretive Data Percent cell count reference ranges are not reported, since discordance with absolute values may lead to misinterpretation of CBC data. Current Interpretive Data was last revised on 2017. Testing performed by: [address] [address] Basophil pct 0.3 % NILSA Comment: Interpretive Data Percent cell count reference ranges are not reported, since discordance with absolute values may lead to misinterpretation of CBC data. Current Interpretive Data was last revised on 2017. Testing performed by: [address] [address] Blood 04/19/2024 4:57 PM CDT 04/19/2024 5:02 PM CDT Rehab Kyle YOUNG LAB BLOOD ORDERABLES Final Resu lt Performing Organization Address [facility] Co de Phone Number NILSA [address] Department of Laboratories [place], [place] [phone] * (ABNORMAL) Troponin T high-sensitivity series (baseline, 2hr, 4hr, 6hr) (04/19/2024 4:57 PM CDT) Trop T hs 65(H) <=14 ng/L Comment: Ref Range High Interpretive Data For further hscTnT resources including the diagnostic algorithm and an aid in interpretation, copy and paste this link: https://nrl.testcatalog.org/show/hsTrop Current Interpretive Data last revised 2020. Testing performed by: [address] [address] Blood 04/19/2024 4:57 PM CDT 04/19/2024 5:02 PM CDT Rehab Kyle YOUNG LAB BLOOD ORDERABLES Edited Res ult - Final Performing Organization Address City/[facility]/ZIP Co de Phone Number [place] [id number] [place] [address] * (ABNORMAL) aPTT (04/19/2024 4:57 PM CDT) aPTT 64(H) 22 - 37 sec Comment: Ref Range High Interpretive data aPTT test has not been evaluated for monitoring heparin therapy. The anti-Xa is the preferred test. Current interpretive data was last revised on 2019. Testing performed by: [address] [address] Blood (Blood, Venous) 04/19/2024 4:57 PM CDT 04/19/2024 5:02 PM CDT Narrative NILSA - 04/19/2024 5:15 PM CDT Potential stroke patient. Rehab Kyle YOUNG LAB BLOOD ORDERABLES Final Resu lt Performing Organization Address City/State/[facility] Co de Phone Number [place] [phone] [place] [address] * Protime-INR (04/19/2024 4:57 PM CDT) Pathologist [facility] PT 13.5 12.0 - 14.6 sec Comment:Testing performed by : [address] [address] INR 1.0 0.9 - 1.2 NILSA Comment: Ref Range High Interpretive data Oral anticoagulant therapeutic ranges: Venous thromboembolism prophylaxis or treatment: 2.0-3.0 CARDIOLOGY Standard range: 2.0-3.0 High-intensity range: 2.5-3.5 Refer to indication-specific guidelines for appropriate target ranges for prosthetic heart valve replacement. Current interpretive data was last revised on 2019. Testing performed by: [address] [address] Blood 04/19/2024 4:57 PM CDT 04/19/2024 5:02 PM CDT Rehab Kyle YOUNG LAB BLOOD ORDERABLES Final Resu lt NILSA [address] [facility] [place] [address] * (ABNORMAL) Comprehensive metabolic panel (04/19/2024 4:57 PM CDT) Sodium 137 135 - 145 mmol/L Comment:Testing performed by : [address] [address] Potassium, pl 3.8 3.3 - 4.9 mmol/L NILSA Comment:Testing performed by : [address] [address] Chloride 96(L) 97 - 110 mmol/L NILSA Comment:Testing performed by : [address] [address] CO2 26 22 - 32 mmol/L NILSA Comment:Testing performed by : [address] [address] Anion gap 15 2 - 15 mmol/L NILSA Comment:Testing performed by : [address] [address] BUN 22 6 - 25 mg/dL NILSA Comment:Testing performed by : [address] [address] Creatinine 2.30(H) 0.60 - 1.10 mg/dL NILSA Comment:Testing performed by : [address] [address] Glucose 114 70 - 199 mg/dL NILSA [...] was last revised 2022. Testing performed by: [address] [address] Calcium 9.2 8.5 - 10.3 mg/dL NILSA Comment:Testing performed by : [address] [address] Bilirubin, total 0.3 0.1 - 1.2 mg/dL NILSA Comment:Testing performed by : [address] [address] Protein, pl 8.1 6.5 - 8.5 g/dL NILSA Comment:Testing performed by : [address] [address] Albumin 4.1 3.5 - 5.0 g/dL NILSA Comment:Testing performed by : [address] [address] Alk phos 133(H) 40 - 130 Units/L NILSA Comment:Testing performed by : [address] [address] ALT 50(H) 7 - 45 Units/L NILSA Comment:Testing performed by : [address] [address] AST 33 10 - 45 Units/L NILSA Comment:Testing performed by : [address] [address] Blood (Blood, Venous) 04/19/2024 4:57 PM CDT 04/19/2024 5:02 PM CDT Narrative NILSA - 04/19/2024 5:44 PM CDT Potential Stroke Patient us Rehab Kyle YOUNG LAB BLOOD ORDERABLES Final Resu lt NILSA [facility] [place] [address] * (ABNORMAL) CBC with auto differential (04/19/2024 4:57 PM CDT) [facility] WBC 11.2(H) 3.8 - 9.9 K/cumm Comment:Testing performed by : [address] [address] Hgb 9.9(L) 11.9 - 15.5 g/dL NILSA Comment:Testing performed by : [address] [address] Hct 30.0(L) 35.6 - 45.5 % NILSA Comment:Testing performed by : [address] [address] Plt 208 150 - 400 K/cumm NILSA Comment:Testing performed by : [address] [address] MPV 10.9 9.1 - 12.3 fL NILSA Comment:Testing performed by : [address] [address] RBC 3.28(L) 3.90 - 5.20 M/cumm NILSA Comment:Testing performed by : [address] [address] MCV 91.5 81.3 - 96.4 fL NILSA Comment:Testing performed by : [address] [address] MCH 30.2 27.1 - 33.3 pg NILSA Comment:Testing performed by : [address] [address] MCHC 33.0 32.3 - 35.7 g/dL NILSA Comment:Testing performed by : [address] [address] RDW CV 14.6 11.1 - 14.9 % NILSA Comment:Testing performed by : [address] [address] RDW SD 49.1(H) 35.7 - 48.1 fL NILSA Comment:Testing performed by : [address] [address] NRBC abs 0.00 0.00 - 0.01 K/cumm NILSA Comment:Testing performed by : [address] [address] Blood (Blood, Venous) 04/19/2024 4:57 PM CDT 04/19/2024 5:02 PM CDT Narrative NILSA - 04/19/2024 5:05 PM CDT Potential Stroke Patient us Rehab [facility] LAB BLOOD ORDERABLES Final Resu lt Performing Organization Address [facility] Co de Phone Number NILSA [address] [place] [address] * POCT glucose (04/19/2024 4:52 PM CDT) [facility] Signature Glucose, POC 115 70 - 199 mg/dL Comment:Testing performed by : [facility], [address] [place] [address]., [id number] Blood 04/19/2024 4:52 PM CDT 04/19/2024 4:52 PM CDT Notinfile Unknown LAB POCT ORDERABLES - DEVICE F inal Result Performing Organization Address [facility] de Phone Number [place] [id number] [place] [address] * CT Stroke Head WO Contrast (04/19/2024 [...] PM T: ??04/19/2024 5:14 PM Report ID: [id number] Reading Location: [id number] Procedure Note José Miguel Sauer MD - [...] Miguel Sauer M.D. LB: JOSIAH Report ID: [id number] Reading Location: [id number] [facility] IMG CT PROCEDURES Final Result documented in this encounter Visit Diagnoses Diagnosis Metabolic encephalopathy- Primary Metabolic encephalopathy Altered mental status, unspecified altered mental status type Weakness Other malaise and fatigue Debility Unspecified debility Mild protein-calorie malnutrition (CMS/HCC) (HCC) ESRD on hemodialysis (CMS/HCC) ([facility]) Unresponsive episode Other alteration of consciousness Primary hypertension Unspecified essential hypertension Unresponsive episode Other alteration of consciousness Debility Unspecified debility Transient loss of consciousness Other alteration of consciousness Thalamic stroke ([facility]) Anemia, unspecified type Gastritis without bleeding, unspecified chronicity, unspecified gastritis type documented in this encounter Admitting Diagnoses Diagnosis Metabolic encephalopathy Debility Unspecified debility documented in this encounter Administered Medications Inactive Administered Medications - up to 3 most recent administrations Medication Order MAR Action Action Date Dose Rate Site acetaminophen (TYLENOL) tablet 650 mg 650 mg, oral, Every 4 hours PRN, 1st line for pain, fever, fever greater than 38.3 C, Starting on Thu04/20/24 at 0003, Indications: Fever, PainIndications:Fever,Pain Given 04/22/2024 8:53 PM CDT 650 mg Given 04/22/2024 11:24 AM CDT 650 mg O ther (Comment) albumin 25 % bottle 25 g 25 g, intravenous, As needed, hypotension, Starting on Thu04/23/24 at 1744, For 24 hours, Dialysis, To be administered only in dialysis. Not to exceed 25 gm. (Second priority), BP threshold for treatment: SBP, Systolic Blood Pressure less than (mmHg): 89, Indications: Intradialytic HypotensionIndications:Intradialytic Hypotension aspirin chewable tablet 81 mg 81 mg, oral, Daily, First dose on Thu04/20/24 at 0900 Given 04/23/2024 10:46 AM CDT 81 mg Given 04/22/2024 9:29 AM CDT 81 mg Given 04/21/2024 1:21 PM CDT 81 mg atorvastatin (LIPITOR) tablet 40 mg 40 mg, oral, Nightly, First dose on Thu04/20/24 at 0100 Given 04/22/2024 8:53 PM CDT 40 mg Given 04/21/2024 8:56 PM CDT 40 mg Given 04/20/2024 8:48 PM CDT 40 mg barium sulfate (E-Z-PASTE) 60 % cream oral, Once in imaging, rad, Starting on Thu04/22/24 at 1152, For 1 dose Contrast Given 04/22/2024 11:55 AM CDT 10 g barium sulfate (VARIBAR NECTAR) 40 % (w/v) nectar oral, Once in imaging, contrast, Starting on Thu04/22/24 at 1152, For 1 dose, Shake well Contrast Given 04/22/2024 11:55 AM CDT 30 mL barium sulfate (VARIBAR THIN LIQUID) 81 % (w/w) thin liquid oral, Once in imaging, contrast, Starting on Thu04/22/24 at 1152, For 1 dose Contrast Given 04/22/2024 11:55 AM CDT 50 mL barium sulfate (VARIBAR) 40 % (w/v) 29% (w/w) suspension 5 mL 5 mL, oral, Once in imaging, contrast, Starting on Thu04/22/24 at 1152, For 1 dose, Shake well Contrast Given 04/22/2024 11:55 AM CDT 5 mL benztropine (COGENTIN) tablet 2 mg 2 mg, oral, Nightly, First dose on Thu04/20/24 at 2100 Given 04/22/2024 8:53 PM CDT 2 mg Given 04/21/2024 8:56 PM CDT 2 mg Given 04/20/2024 8:48 PM CDT 2 mg carvediloL (COREG) tablet 6.25 mg 6.25 mg, oral, 2 times daily with meals (bkfst, dinner), First dose on Thu04/20/24 at 0800, On hold since Thu04/21/2024 at 1043 until manually unheld Given 04/20/2024 5:19 PM CDT 6.25 mg Given 04/20/2024 8:26 AM CDT 6.25 mg dextrose (D10W) 10% bolus 250 mL 250 mL, intravenous, at 1,000 mL/hr, Administer over 15 Minutes, Every 15 min PRN, blood glucose less than 70 mg/dL and UNABLE to swallow/take PO glucose/juice., Starting on Thu04/20/24 at 0003, After treatment for hypoglycemia, recheck BG followed by treatment every 15 minutes until the BG is greater than 100 mg/dL. Then check BG 1 hour post treatment. If BG is less than 100 mg/dL, repeat Q15 minute BG checks and treatment. Call MD for each episode of hypoglycemia., Indications: hypoglycemic disorderIndications:hypoglycem ic disorder dextrose (GLUTOSE) 40 % gel 15 g 15 g, oral, Every 15 min PRN, low blood sugar, blood glucose less than 70 mg/dL, Starting on Thu04/20/24 at 0003, If patient is alert and able to eat/drink, give 15 gm glucose or one juice (4 fluid ounces) NOT ORANGE JUICE. After treatment for hypoglycemia, recheck BG followed by treatment every 15 minutes until the BG is greater than 100 mg/dL. Then check BG 1 hour post-treatment. If BG is less than 100 mg/dL, repeat Q15 minute BG checks and treatment. Call MD for each episode of hypoglycemia. TRANSIT DEPARTMENT CLERK STATES GLUTOSE-15 CONTAINS GLUCOSE 40% W/W (50% W/V), Indications: hypoglycemic disorderIndications:hypoglycem ic disorder enoxaparin (LOVENOX) syringe 30 mg 30 mg, subcutaneous, Daily (for enoxaparin), First dose on Thu04/20/24 at 2100, Indications: Deep Vein Thrombosis Prevention, On hold since Thu04/21/2024 at 1717 until manually unheldIndications:Deep Vein Thrombosis Prevention Given 04/20/2024 8:48 PM CDT 30 mg Left Lower Abdomen ferrous sulfate tablet 325 mg 325 mg, oral, Daily with breakfast, First dose on Thu04/20/24 at 0800 Given 04/23/2024 10:47 AM CDT 325 mg Given 04/22/2024 9:29 AM CDT 325 mg Given 04/21/2024 1:21 PM CDT 325 mg heparin 1,000 unit/mL injection 500 Units 500 Units, dialysis circuit, Every 1 hour, First dose on Thu04/21/24 at 0900, For 24 hours, Dialysis, Until treatment completed., Indications: Prevent Extracorporeal Clotting During HemodialysisIndications:Prevent Extracorporeal Clotting During Hemodialysis Given 04/21/2024 10:00 AM CDT 500 Units Given 04/21/2024 9:00 AM CDT 500 Units hydrALAZINE (APRESOLINE) tablet 25 mg 25 mg, oral, 2 times daily, First dose on Thu04/20/24 at 0115, Indications: hypertensionIndications:hypertension Given 04/23/2024 10:47 AM CDT 25 mg Given 04/22/2024 8:53 PM CDT 25 mg Given 04/22/2024 9:29 AM CDT 25 mg insulin glargine (LANTUS, SEMGLEE) 100 unit/mL injection 9 Units 9 Units (rounded from 8.85 Units = 0.15 Units/kg ? 59 kg), subcutaneous, Nightly, First dose on Thu04/20/24 at 2100, Do not hold if NPO. Do not mix with other insulins, Indications: Diabetes MellitusIndications:Diabetes Mellitus Given 04/22/2024 8:53 PM CDT 9 Units Left Upper Arm Given 04/21/2024 8:56 PM CDT 9 Units Le ft Lower Abdomen Given 04/20/2024 8:49 PM CDT 9 Units Le ft Upper Arm insulin lispro (HumaLOG, ADMELOG) 100 unit/mL injection 0-4 Units 0-4 Units, subcutaneous, Nightly, First dose on Thu04/20/24 at 2100, Blood glucose mg/dL: 199 or less: No insulin 200-249: add 1 unit 250-299: add 2 units 300-349: add 3 units and notify physician for adjustment of insulin orders. 350-399: add 4 units and notify physician for adjustment of insulin orders. Over 400: Notify physician for adjustment of insulin orders. Do NOT hold for NPO Status, Indications: Diabetes MellitusIndications:Diabetes Mellitus Given 04/20/2024 8:49 PM CDT 1 Units Left Upper Arm insulin lispro (HumaLOG, ADMELOG) 100 unit/mL injection 0-5 Units 0-5 Units, subcutaneous, 3 times daily with meals, First dose on Thu04/20/24 at 0800, Blood glucose mg/dL: 149 or less: No insulin 150-199: add 1 unit 200-249: add 2 units 250-299: add 3 units 300-349: add 4 units and notify physician for adjustment of insulin orders. 350-399: add 5 units and notify physician for adjustment of insulin orders. Over 400: Notify physician for adjustment of insulin orders. Do NOT hold for NPO Status, Indications: Diabetes MellitusIndications:Diabetes Mellitus Given 04/23/2024 5:31 PM CDT 1 Units Left Upper Arm Given 04/23/2024 2:10 PM CDT 1 Units Le ft Lower Abdomen Given 04/22/2024 12:41 PM CDT 2 Units L eft Upper Arm insulin lispro (HumaLOG, ADMELOG) 100 unit/mL injection 3 Units 3 Units (rounded from 2.95 Units = 0.05 Units/kg ? 59 kg), subcutaneous, 3 times daily with meals, First dose on Thu04/20/24 at 0800, If BG greater than or equal to 100 mg/dL, give dose with meals when tray arrives in the room. If BG less than 100 mg/dL or history of poor intake, give after meals. If patient eating less than 50% of meal, call MD for holding or reducing meal insulin dose. Hold prandial insulin if NPO, unable to eat, or if BG less than 70 mg/dL., Indications: Diabetes MellitusIndications:Diabetes Mellitus Given 04/23/2024 5:32 PM CDT 3 Units Left Upper Arm Given 04/23/2024 2:10 PM CDT 3 Units Le ft Lower Abdomen Given 04/23/2024 10:44 AM CDT 3 Units L eft Upper Arm NIFEdipine (PROCARDIA XL/ADALAT CC) extended release tablet 90 mg 90 mg, oral, Daily, First dose on Thu04/20/24 at 0900, Do not crush, chew, cut, dissolve, open or otherwise manipulate tablet/capsule. Given 04/23/2024 10:47 AM CDT 90 mg Given 04/22/2024 9:29 AM CDT 90 mg Given 04/21/2024 1:21 PM CDT 90 mg ondansetron (ZOFRAN) injection 4 mg 4 mg, intravenous, Administer over 2 Minutes, Every 6 hours PRN, nausea, vomiting, if not tolerating PO, Starting on Thu04/20/24 at 0003, Indications: Nausea and VomitingIndications:Nausea and Vomiting ondansetron ODT (ZOFRAN-ODT) disintegrating tablet 4 mg 4 mg, oral, Every 6 hours PRN, nausea, vomiting, Starting on Thu04/20/24 at 0003, Indications: Nausea and VomitingIndications:Nausea and Vomiting Given 04/22/2024 11:24 AM CDT [address] (PROTONIX) extended release tablet 40 mg 40 mg, oral, 2 times daily, First dose on Thu04/20/24 at 0900, Do not crush, chew, cut, dissolve, open or otherwise manipulate tablet/capsule., Indications: Treatment of Non-Bleeding Gastric DisorderIndications:Treatment of Non-Bleeding Gastric Disorder Given 04/23/2024 10:46 AM CDT 40 mg Given 04/22/2024 8:53 PM CDT 40 mg Given 04/22/2024 9:29 AM CDT 40 mg potassium, sodium phosphates (PHOS-NAK) 280-160-250 mg packet 1 packet 1 packet, oral, Once, On 04/23/24 at 1630, For 1 dose, Each packet contains elemental phosphorus 250 mg (8 mmol), potassium 280 mg (7.1 mEq), and sodium 160 mg (6.9 mEq). Given 04/23/2024 4:16 PM CDT 1 packet risperiDONE (RisperDAL) tablet 2 mg 2 mg, oral, Nightly, First dose on Thu04/20/24 at 2100 Given 04/22/2024 8:53 PM CDT 2 mg Given 04/21/2024 8:56 PM CDT 2 mg Given 04/20/2024 8:48 PM CDT 2 mg sodium chloride 0.9% bolus 200 mL 200 mL, intravenous, As needed, hypotension, Starting on 04/23/24 at 1744, For 24 hours, Dialysis, To be administered in dialysis only. Not to exceed 500 mL. (First priority), BP threshold for treatment: SBP, Systolic Blood Pressure less than (mmHg): 89, Indications: Intradialytic HypotensionIndications:Intradialytic Hypotension sodium chloride 0.9% flush 0.5-20 mL 0.5-20 mL, intra-catheter, Every 8 hours, First dose on 04/23/24 at 1145, Flush volume based on line type and size. Given 04/23/2024 11:10 AM CDT 10 mL sodium chloride 0.9% flush 0.5-20 mL 0.5-20 mL, intra-catheter, As needed, line care, Starting on 04/23/24 at 1109, Flush volume based on line type and size. Flush before and after each use. Given 04/23/2024 11:41 AM CDT 10 mL sucralfate (CARAFATE) 100 mg/mL oral suspension 1 g 1 g, oral, 4 times daily (with meals and nightly), First dose on Thu04/23/24 at 1200 Given 04/23/2024 4:16 PM CDT 1 g sucralfate (CARAFATE) tablet 1 g 1 g, oral, 4 times daily, First dose on Thu04/20/24 at 0800 Given 04/23/2024 10:46 AM CDT 1 g Given 04/22/2024 8:53 PM CDT 1 g Given 04/22/2024 5:59 PM CDT 1 g thiamine (VITAMIN B-1) 100 mg in sodium chloride 0.9% 100 mL IVPB 100 mg, intravenous, at 202 mL/hr, Administer over 30 Minutes, Every 24 hours scheduled, First dose on Thu04/22/24 at 1800, For 2 doses, Indications: Nutritional DeficiencyIndications:Nutritional Deficiency New Bag 04/23/2024 11:03 AM CDT 100 mg 202 mL/hr New Bag 04/22/2024 6:42 PM CDT 100 mg 202 mL/hr thiamine (VITAMIN B-1) tablet 500 mg 500 mg, oral, Daily, First dose on Thu04/20/24 at 0900, For 2 doses Given 04/21/2024 1:21 PM CDT 500 mg Given 04/20/2024 8:26 AM CDT 500 mg documented in this encounter Discontinued Medications Medication Sig Discontinue Reason Start Date End Da te benzonatate (TESSALON) 100 mg capsuleIndications:Cou gh Take 1 capsule (100 mg total) by mouth 3 (three) times a day as needed for cough Stop Taking at Discharge 02/09/2024 04/23/2024 documented as of this encounter Active and Recently Administered Medications Times are shown in CDT. Scheduled Medication Order 04/21/2024 04/22/2024 04/23/2024 aspirin chewable tablet 81 mg 81 mg, oral, Daily, First dose on Thu04/20/24 at 0900 1321 (Given - Provider: Marie Peres RN) 0929 (Given - Provider: Radha Medina RN) 1046 (Given - Provider: Elvia Piper RN) atorvastatin (LIPITOR) tablet 40 mg 40 mg, oral, Nightly, First dose on Thu04/20/24 at 0100 6 (Given - Provider: Judie Way, RN) 2052 (Given - Provider: Judie Way, RN) benztropine (COGENTIN) tablet 2 mg 2 mg, oral, Nightly, First dose on Thu04/20/24 at 2100 2055 (Given - Provider: Judie Way, RN) 2052 (Given - Provider: Judie Way, RN) carvediloL (COREG) tablet 6.25 mg 6.25 mg, oral, 2 times daily with meals (bkfst, dinner), First dose on Thu04/20/24 at 0800, On hold since Thu04/21/2024 at 1043 until manually unheld 1043 (Held by Provider - Provider: Shemar Feliz MD - Reason: Change in Patient Status)1800 (Not Given - Provider: Judie Way RN - Reason: See Provider Order - Comment: dose held)1838 (Not Given - Provider: Marie Peres RN - Reason: Other - Comment: pt in dialysis and then went unresponsive) 0800 (Dose Auto Held - Provider: Shemar Feliz MD)1800 (Not Given - Provider: Judie Way RN - Reason: See Provider Order - Comment: dose held) 0800 (Dose Auto Held - Provider: Shemar Feliz MD)1800 (Dose Auto Held - Provider: Shemar Feliz MD)2337 (Unheld by Provider - Provider: Automatic Discharge Provider) enoxaparin (LOVENOX) syringe 30 mg 30 mg, subcutaneous, Daily (for enoxaparin), First dose on Thu04/20/24 at 2100, Indications: Deep Vein Thrombosis Prevention, On hold since Thu04/21/2024 at 1717 until manually unheld 171 (Held by Provider - Provider: Cheryl Slater MD - Reason: Change in Patient Status)2100 (Not Given - Provider: Judie Way RN - Reason: See Provider Order - Comment: dose held) 2100 (Not Given - Provider: Judie Way RN - Reason: See Provider Order - Comment: dose held) 2337 (Unheld by Provider - Provider: Automatic Discharge Provider) ferrous sulfate tablet 325 mg 325 mg, oral, Daily with breakfast, First dose on Thu04/20/24 at 0800 1321 (Given - Provider: Marie Peres RN) 09 (Given - Provider: Radha Medina RN) 1046 (Given - Provider: Elvia Piper, RN - Comment: dialysis this a.m. just finished) heparin 1,000 unit/mL injection 1.5-6.9 mL(Linked Group 1) 1.5-6.9 mL, intra-catheter, Once, On 04/23/24 at 1815, For 1 dose, Dialysis, [place] volume of catheter lumens post treatment. Give volume based upon clinical immunologist's recommendation (usual range 1.2 - 3 mL) in each lumen., Indications: prevent clotting in catheter 181 (Due) heparin 1,000 unit/mL injection 500 Units (CANCELED) 500 Units, dialysis circuit, Every 1 hour, First dose on Kellie 04/21/24 at 0900, For 24 hours, Dialysis, Until treatment completed., Indications: Prevent Extracorporeal Clotting During Hemodialysis 0900 (Given - Provider: Martha Shabazz RN)1000 (Given - Provider: Martha Shabazz RN)1205 (Not Given - Provider: Martha Shabazz RN - Reason: Change in Patient Status)1838 (Not Given - Provider: Marie Peres RN - Reason: Order Discontinued) hydrALAZINE (APRESOLINE) tablet 25 mg 25 mg, oral, 2 times daily, First dose on Thu04/20/24 at 0115, Indications: hypertension 1325 (Given - Provider: Marie Peres RN)2248 (Not Given - Provider: Judie Way, ALIREZA - Reason: Order parameters not met) 09 (Given - Provider: Radha Medina RN)2052 (Given - Provider: Judie Way, ALIREZA) 104 (Given - Provider: Elvia Piper, ALIREZA - Comment: dialysis this a.m. just finished) insulin glargine (LANTUS, SEMGLEE) 100 unit/mL injection 9 Units 9 Units (rounded from 8.85 Units = 0.15 Units/kg ? 59 kg), subcutaneous, Nightly, First dose on Thu04/20/24 at 2100, Do not hold if NPO. Do not mix with other insulins, Indications: Diabetes Mellitus 2055 (Given - Provider: Judie Way RN) 2052 (Given - Provider: Judie Way RN) insulin lispro (HumaLOG, ADMELOG) 100 unit/mL injection 0-4 Units 0-4 Units, subcutaneous, Nightly, First dose on Thu04/20/24 at 2100, Blood glucose mg/dL: 199 or less: No insulin 200-249: add 1 unit 250-299: add 2 units 300-349: add 3 units and notify physician for adjustment of insulin orders. 350-399: add 4 units and notify physician for adjustment of insulin orders. Over 400: Notify physician for adjustment of insulin orders. Do NOT hold for NPO Status, Indications: Diabetes Mellitus 2048 (Not Given - Provider: Judie Way RN - Reason: Order parameters not met) 2053 (Not Given - Provider: Judie Way RN - Reason: Order parameters not met) insulin lispro (HumaLOG, ADMELOG) 100 unit/mL injection 0-5 Units 0-5 Units, subcutaneous, 3 times daily with meals, First dose on Thu04/20/24 at 0800, Blood glucose mg/dL: 149 or less: No insulin 150-199: add 1 unit 200-249: add 2 units 250-299: add 3 units 300-349: add 4 units and notify physician for adjustment of insulin orders. 350-399: add 5 units and notify physician for adjustment of insulin orders. Over 400: Notify physician for adjustment of insulin orders. Do NOT hold for NPO Status, Indications: Diabetes Mellitus 1729 (Not Given - Provider: Marie Peres RN - Reason: Change in Patient Status - Comment: mentation is not improved enough for patient to eat)173 (Not Given - Provider: Marie Peres RN - Reason: Change in Patient Status - Comment: pt in dialyisis and then went unresponsive)1831 (Not Given - Provider: Marie Peres RN - Reason: Order parameters not met) 0853 (Not Given - Provider: Radha Medina RN - Reason: Order parameters not met)1241 (Given - Provider: Anali Chinchilla, ALIREZA)1756 (Not Given - Provider: Radha Medina RN - Reason: Order parameters not met) 0915 (Not Given - Provider: Elvia Piper RN - Reason: Order parameters not met)1148 (Not Given - Provider: Elvia Piper RN - Reason: Other - Comment: given late this a.m., too early for next dose)1410 (Given - Provider: Elvia Piper RN)1731 (Given - Provider: Elvia Piper RN) insulin lispro (HumaLOG, ADMELOG) 100 unit/mL injection 3 Units 3 Units (rounded from 2.95 Units = 0.05 Units/kg ? 59 kg), subcutaneous, 3 times daily with meals, First dose on Thu04/20/24 at 0800, If BG greater than or equal to 100 mg/dL, give dose with meals when tray arrives in the room. If BG less than 100 mg/dL or history of poor intake, give after meals. If patient eating less than 50% of meal, call MD for holding or reducing meal insulin dose. Hold prandial insulin if NPO, unable to eat, or if BG less than 70 mg/dL., Indications: Diabetes Mellitus 1730 (Not Given - Provider: Marie Peres RN - Reason: Change in Patient Status - Comment: mentation has not improved enough for nurse to be comfortable with patient eating after going unresponsive)1732 (Not Given - Provider: Marie Peres RN - Reason: Change in Patient Status - Comment: pt in dialyisis and then went unresponsive.)1855 (Given - Provider: Marie Peres RN) 0929 (Given - Provider: Radha Medina RN)1241 (Given - Provider: Anali Chinchilla, ALIREZA)1836 (Given - Provider: Radha Medina RN) 1044 (Given - Provider: Elvia Piper RN - Comment: late breakfast)1147 (Not Given - Provider: Elvia Piper RN - Reason: Other - Comment: a.m. dose given very late due to dialysis nurse not wanting her to eat until she finished dialysis)1410 (Given - Provider: Elvia Piper RN)1732 (Given - Provider: Elvia Piper RN) NIFEdipine (PROCARDIA XL/ADALAT CC) extended release tablet 90 mg 90 mg, oral, Daily, First dose on Thu04/20/24 at 0900, Do not crush, chew, cut, dissolve, open or otherwise manipulate tablet/capsule. 1321 (Given - Provider: Marie Peres RN) 09 (Given - Provider: Radha Medina, RN) 104 (Given - Provider: Elvia Piper RN - Comment: dialysis this a.m.) pantoprazole DR (PROTONIX) extended release tablet 40 mg 40 mg, oral, 2 times daily, First dose on Thu04/20/24 at 0900, Do not crush, chew, cut, dissolve, open or otherwise manipulate tablet/capsule., Indications: Treatment of Non-Bleeding Gastric Disorder 1321 (Given - Provider: Marie Peres RN)2055 (Given - Provider: Judie Way, ALIREZA) 09 (Given - Provider: Radha Medina, ALIREZA)2052 (Given - Provider: Judie Way, RN) 1046 (Given - Provider: Elvia Piper RN - Comment: dialysis this am just finished) potassium, sodium phosphates (PHOS-NAK) 280-160-250 mg packet 1 packet (COMPLETED) 1 packet, oral, Once, On 04/23/24 at 1630, For 1 dose, Each packet contains elemental phosphorus 250 mg (8 mmol), potassium 280 mg (7.1 mEq), and sodium 160 mg (6.9 mEq). 1616 (Given - Provider: Elvia Piper RN) REQUEST FOR PATIENT'S HOME SUPPLY-sucroferric oxyhydroxide tablet,chewable 0.5 tablet 0.5 tablet, oral, 3 times daily, First dose on Thu04/20/24 at 0900, THIS ORDER IS A PLACEHOLDER. Please request home supply from patient/caregiver. When the medication is delivered, it must be verified by pharmacy. Contact pharmacy via In-Basket when medication arrives for verification. 1732 (Not Given - Provider: Marie Peres RN - Reason: Change in Patient Status - Comment: pt in dialyisis and then went unresponsive)1838 (Not Given - Provider: Marie Peres RN - Reason: Medication not available)2237 (Not Given - Provider: Judie Way RN - Reason: Medication not available) 0937 (Not Given - Provider: Radha Medina RN - Reason: Medication not available)1639 (Not Given - Provider: Radha Medina RN - Reason: Medication not available)2054 (Not Given - Provider: Judie Way RN - Reason: Medication not available) 1048 (Not Given - Provider: Elvia Piper RN - Reason: Medication not available)1532 (Not Given - Provider: Elvia Piper RN - Reason: Medication not available) risperiDONE (RisperDAL) tablet 2 mg 2 mg, oral, Nightly, First dose on Thu04/20/24 at 2100 2056 (Given - Provider: Judie Way RN) 2053 (Given - Provider: Judie Way RN) sodium chloride 0.9% flush 0.5-20 mL 0.5-20 mL, intra-catheter, Every 8 hours, First dose on 04/23/24 at 1145, Flush volume based on line type and size. 1110 (Given - Provider: Elvia Piper RN) sucralfate (CARAFATE) 100 mg/mL oral suspension 1 g 1 g, oral, 4 times daily (with meals and nightly), First dose on 04/23/24 at 1200 1146 (Not Given - Provider: Elvia Piper RN - Reason: Other - Comment: dose given after dialysis so it was late, too early for next dose)1616 (Given - Provider: Elvia Piper RN) sucralfate (CARAFATE) tablet 1 g (CANCELED) 1 g, oral, 4 times daily, First dose on Thu04/20/24 at 0800 1321 (Given - Provider: Marie Peres RN)1731 (Not Given - Provider: Marie Peres RN - Reason: Change in Patient Status - Comment: pt unresponsive)175 (Given - Provider: Marie Peres RN)2055 (Given - Provider: Judie Way, RN) 0929 (Given - Provider: Radha Medina RN)1241 (Given - Provider: Anali Chinchilla RN)175 (Given - Provider: Radha Medina RN)2052 (Given - Provider: Judie Way, RN) 1046 (Given - Provider: Elvia Piper RN - Comment: dialysis this a.m.) thiamine (VITAMIN B-1) 100 mg in sodium chloride 0.9% 100 mL IVPB (COMPLETED) 100 mg, intravenous, at 202 mL/hr, Administer over 30 Minutes, Every 24 hours scheduled, First dose on Thu04/22/24 at 1800, For 2 doses, Indications: Nutritional Deficiency 1842 (New Bag - Provider: Radha Medina RN) 1103 (New Bag - Provider: Elvia Piper RN - Comment: dialysis this a.m.) thiamine (VITAMIN B-1) tablet 500 mg (COMPLETED) 500 mg, oral, Daily, First dose on Thu04/20/24 at 0900, For 2 doses 1321 (Given - Provider: Marie Peres RN) PRN Medication Order 04/21/2024 04/22/2024 04/23/2024 acetaminophen (TYLENOL) tablet 650 mg 650 mg, oral, Every 4 hours PRN, 1st line for pain, fever, fever greater than 38.3 C, Starting on Thu04/20/24 at 0003, Indications: Fever, Pain 1124 (Given - Provider: Radha Medina RN - Comment: left shoulder)2052 (Given - Provider: Judie Way, RN) albumin 25 % bottle 25 g 25 g, intravenous, As needed, hypotension, Starting on Thu04/23/24 at 1744, For 24 hours, Dialysis, To be administered only in dialysis. Not to exceed 25 gm. (Second priority), BP threshold for treatment: SBP, Systolic Blood Pressure less than (mmHg): 89, Indications: Intradialytic Hypotension barium sulfate (E-Z-PASTE) 60 % cream (COMPLETED) oral, Once in imaging, rad, Starting on Thu04/22/24 at 1152, For 1 dose 1155 (Contrast Given - Provider: Fer Le RT) barium sulfate (VARIBAR NECTAR) 40 % (w/v) nectar (COMPLETED) oral, Once in imaging, contrast, Starting on Thu04/22/24 at 1152, For 1 dose, Shake well 1155 (Contrast Given - Provider: Fer Le RT) barium sulfate (VARIBAR THIN LIQUID) 81 % (w/w) thin liquid (COMPLETED) oral, Once in imaging, contrast, Starting on Thu04/22/24 at 1152, For 1 dose 1155 (Contrast Given - Provider: RT Angela) barium sulfate (VARIBAR) 40 % (w/v) 29% (w/w) suspension 5 mL (COMPLETED) 5 mL, oral, Once in imaging, contrast, Starting on Thu04/22/24 at 1152, For 1 dose, Shake well 1155 (Contrast Given - Provider: RT Angela) dextrose (D10W) 10% bolus 250 mL(Linked Group 2) 250 mL, intravenous, at 1,000 mL/hr, Administer over 15 Minutes, Every 15 min PRN, blood glucose less than 70 mg/dL and UNABLE to swallow/take PO glucose/juice., Starting on Thu04/20/24 at 0003, After treatment for hypoglycemia, recheck BG followed by treatment every 15 minutes until the BG is greater than 100 mg/dL. Then check BG 1 hour post treatment. If BG is less than 100 mg/dL, repeat Q15 minute BG checks and treatment. Call MD for each episode of hypoglycemia., Indications: hypoglycemic disorder dextrose (GLUTOSE) 40 % gel 15 g(Linked Group 2) 15 g, oral, Every 15 min PRN, low blood sugar, blood glucose less than 70 mg/dL, Starting on Thu04/20/24 at 0003, If patient is alert and able to eat/drink, give 15 gm glucose or one juice (4 fluid ounces) NOT ORANGE JUICE. After treatment for hypoglycemia, recheck BG followed by treatment every 15 minutes until the BG is greater than 100 mg/dL. Then check BG 1 hour post-treatment. If BG is less than 100 mg/dL, repeat Q15 minute BG checks and treatment. Call MD for each episode of hypoglycemia. TRANSIT DEPARTMENT CLERK STATES GLUTOSE-15 CONTAINS GLUCOSE 40% W/W (50% W/V), Indications: hypoglycemic disorder glucagon injection 1 mg 1 mg, intramuscular, Every 30 min PRN, low blood sugar, blood glucose less than 70 mg/dL AND no IV access AND unable to take PO glucose/juice., Starting on Thu04/20/24 at 2, After Glucagon is administered, position patient on side if possible to avoid aspiration. Obtain IV access. Follow glucagon treatment with glucose treatment or IV dextrose. After treatment for hypoglycemia, recheck BG followed by treatment every 15 minutes until the BG is greater than 100 mg/dL. Then check BG 1 hour post treatment. If BG is less than 100 mg/dL, repeat Q15 minute BG checks and treatment. Call MD for each episode of hypoglycemia. Reconstitute 1 mg vial with 1 mL SWFI. Use immediately following reconstitution. ondansetron (ZOFRAN) injection 4 mg(Linked Group 3) 4 mg, intravenous, Administer over 2 Minutes, Every 6 hours PRN, nausea, vomiting, if not tolerating PO, Starting on Thu04/20/24 at 2, Indications: Nausea and Vomiting 1124 (See Alternative - Provider: Radha Medina, RN) ondansetron ODT (ZOFRAN-ODT) disintegrating tablet 4 mg(Linked Group 3) 4 mg, oral, Every 6 hours PRN, nausea, vomiting, Starting on Thu04/20/24 at 2, Indications: Nausea and Vomiting 1124 (Given - Provider: Radha Medina, RN) polyethylene glycol (MIRALAX) packet 17 g 17 g, oral, Daily PRN, Constipation, Starting on Thu04/20/24 at 2 ramelteon (ROZEREM) tablet 8 mg 8 mg, oral, Nightly PRN, sleep, Starting on Thu04/20/24 at 2, Indications: Sleep-Onset Insomnia senna-docusate (PERICOLACE) 8.6-50 mg per tablet 1 tablet 1 tablet, oral, 2 times daily PRN, constipation, Starting on Thu04/20/24 at 0003, Indications: constipation sodium chloride 0.9% bolus 200 mL 200 mL, intravenous, As needed, hypotension, Starting on 04/23/24 at 1744, For 24 hours, Dialysis, To be administered in dialysis only. Not to exceed 500 mL. (First priority), BP threshold for treatment: SBP, Systolic Blood Pressure less than (mmHg): 89, Indications: Intradialytic Hypotension sodium chloride 0.9% flush 0.5-20 mL 0.5-20 mL, intra-catheter, As needed, line care, Starting on 04/23/24 at 1109, Flush volume based on line type and size. Flush before and after each use. 1141 (Given - Provid er: Elvia Piper RN) Linked Groups Order Group 1: Dialysis Access Care (CANCELED) Routine, Once (Routine), On 04/23/24 at 1745, For 1 occurrence, Catheter access to use for this treatment: Tunneled Dialysis Catheter, Dialysis And heparin 1,000 unit/mL injection 1.5-6.9 mLJump to med 1.5-6.9 mL, intra-catheter, Once, On 04/23/24 at 1815, For 1 dose, Dialysis, [place]well volume of catheter lumens post treatment. Give volume based upon clinical immunologist's recommendation (usual range 1.2 - 3 mL) in each lumen., Indications: prevent clotting in catheter Group 2: dextrose (GLUTOSE) 40 % gel 15 gJump to med 15 g, oral, Every 15 min PRN, low blood sugar, blood glucose less than 70 mg/dL, Starting on Thu04/20/24 at 0003, If patient is alert and able to eat/drink, give 15 gm glucose or one juice (4 fluid ounces) NOT ORANGE JUICE. After treatment for hypoglycemia, recheck BG followed by treatment every 15 minutes until the BG is greater than 100 mg/dL. Then check BG 1 hour post-treatment. If BG is less than 100 mg/dL, repeat Q15 minute BG checks and treatment. Call MD for each episode of hypoglycemia. TRANSIT DEPARTMENT CLERK STATES GLUTOSE-15 CONTAINS GLUCOSE 40% W/W (50% W/V), Indications: hypoglycemic disorder Or dextrose (D10W) 10% bolus 250 mLJump to med 250 mL, intravenous, at 1,000 mL/hr, Administer over 15 Minutes, Every 15 min PRN, blood glucose less than 70 mg/dL and UNABLE to swallow/take PO glucose/juice., Starting on Thu04/20/24 at 0003, After treatment for hypoglycemia, recheck BG followed by treatment every 15 minutes until the BG is greater than 100 mg/dL. Then check BG 1 hour post treatment. If BG is less than 100 mg/dL, repeat Q15 minute BG checks and treatment. Call MD for each episode of hypoglycemia., Indications: hypoglycemic disorder Group 3: ondansetron ODT (ZOFRAN-ODT) disintegrating tablet 4 mgJump to med 4 mg, oral, Every 6 hours PRN, nausea, vomiting, Starting on Thu04/20/24 at 0003, Indications: Nausea and Vomiting Or ondansetron (ZOFRAN) injection 4 mgJump to med 4 mg, intravenous, Administer over 2 Minutes, Every 6 hours PRN, nausea, vomiting, if not tolerating PO, Starting on Thu04/20/24 at 0003, Indications: Nausea and Vomiting documented in this encounter Orders Medications Ordered That Flip ht Not Have Been Administered Count Last Ordered Date First Ordered Date albumin 25 % bottle 25 g 1 04/23/2024 heparin 1,000 unit/mL injection 1.5-6.9 mL 2 04/23/2024 04/21/2024 sodium chloride 0.9% bolus 200 mL 2 024 04/21/2024 dextrose (D10W) 10% bolus 250 mL 1 04/20/20 dextrose (GLUTOSE) 40 % gel 15 g 1 04/20/20 glucagon injection 1 mg 1 04/20/2024 ondansetron (ZOFRAN) injection 4 mg 1 04/20 polyethylene glycol (MIRALAX) packet 17 g 1 04/20/2024 ramelteon (ROZEREM) tablet 8 mg 1 REQUEST FOR PATIENT'S HOME SUPPLY-sucroferric oxyhydroxide tablet,chewable 0.5 tablet 1 04/20/2024 senna-docusate (PERICOLACE) 8.6-50 mg per tablet 1 tablet 1 04/20/2024 Lab Orders Without Results Count Last Ordered D ate First Ordered Date POCT GLUCOSE DEVICE 15 04/23/2024 10/29/20 24 General Supply Count Last Ordered Date First Or dered Date WALKER 1 04/21/2024 Diet Count Last Ordered Date First Orde red Date ADULT DISCHARGE DIET 1 04/23/2024 Nursing Count Last Ordered Date First Orde red Date DISCHARGE ACTIVITY 1 04/23/2024 DISCHARGE INSTRUCTIONS 1 04/23/2024 TELEMETRY MONITORING 1 04/20/2024 WEIGH PATIENT 2 04/20/2024 04/19/2024 CARDIORESPIRATORY MONITOR 1 04/19/2024 NURSING SWALLOW ASSESSMENT 1 04/19/2024 Consult Count Last Ordered Date First Orde red Date IP CONSULT TO NEUROLOGY 2 04/21/2024 IP CONSULT TO NEPHROLOGY 1 04/20/2024 IV Count Last Ordered Date First Orde red Date SALINE LOCK IV 2 04/19/2024 Dialysis Count Last Ordered Date First Orde red Date HEMODIALYSIS/DUF 2 04/23/2024 04/20/2024 Admission Count Last Ordered Date First Orde red Date ADMIT TO INPATIENT 1 04/19/2024 Discharge Count Last Ordered Date First Orde red Date DISCHARGE PATIENT 1 04/23/2024 documented in this encounter 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 06/26/2024 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 COVID: Suspected 04/19/2024 04/19/2024 04/20/2024 12:44 AM CDT documented as of this encounter Care Teams Circular [employer]yer Stone Relationship Specialty Start Date End Date Cherelle Corcoran MD PCP - General Family Medicine 08/30/19 Mark Queen MD Consulting Physician Infectious Diseases 01/10/20 Rudolph Welch MD [address] [place] [address] Consulting Physician Infectious Diseases 12/05/22 Markie Ryan MD [address] [place] [address] Consulting Physician Nephrology 12/05/22 Dulce Vega, RN [address] [place] [address] [address] [place] [address] Hydro Generation Supervisor 10/07/23 05/03/24 [place] [id number] [facility] [address] [place] [address] Consulting Physician Nephrology 10/22/23 Jaya Grier MD [address] [place] [id number] Consulting Physician Gastroenterology 02/01/24 documented as of this encounter
--- OUTSIDE RECORDS SUMMARY | 2024-07-04 04:01 | XMS_ITS | Encounter Summary ---
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 6.5 Protein, ur ql 11/17/2023 3+ (A) Glucose, ur ql 11/17/2023 2+ (A) Ketones, ur 11/17/2023 Negative Bilirubin, ur 11/17/2023 Negative Blood, ur 11/17/2023 Trace (A) Urobilinogen, ur 11/17/2023 <2.0 Nitrite, ur 11/17/2023 Negative Leukocyte esterase, ur 11/17/2023 3+ (A) UA reflex comment 11/17/2023 Reflex to microscopic UA will be performed. Ventricular Rate EKG/Min 11/17/2023 55 Atrial Rate 11/17/2023 55 TX-Interval (MSEC) 11/17/2023 160 QRS-Interval (MSEC) 11/17/2023 62 QT-Interval (MSEC) 11/17/2023 460 QTc 11/17/2023 440 P [place] 11/17/2023 80 R [place] 11/17/2023 7 T [place] 11/17/2023 231 Diagnosis 11/17/2023 Value:Sinus bradycardia Nonspecific T wave abnormality Abnormal ECG When compared with ECG of 30-OCT-2023 09:14, Nonspecific T wave abnormality now evident in Inferior leads Confirmed by COLIN PINTO M.D. ([id number]) on 11/17/2023 9:59:40 PM Trop T hs 11/17/2023 39 (H) Neutrophil abs 11/17/2023 5.4 Imm gran abs 11/17/2023 0.0 Lymphocyte abs 11/17/2023 3.3 Monocyte abs 11/17/2023 0.6 Eosinophil abs 11/17/2023 0.2 Basophil abs 11/17/2023 0.0 Neutrophil pct 11/17/2023 56.7 Imm gran pct 11/17/2023 0.2 Lymphocyte pct 11/17/2023 34.2 Monocyte pct 11/17/2023 6.7 Eosinophil pct 11/17/2023 1.9 Basophil pct 11/17/2023 0.3 Trop T hs 11/17/2023 38 (H) Trop T hs delta 11/17/2023 -1 Trop T hs interp 11/17/2023 Insignificant eGFR 11/17/2023 17 (L) Glucose, POC 11/17/2023 106 WBC, ur 11/17/2023 21-50 (A) RBC, ur 11/17/2023 0-2 Epithelial cells, squamo* 11/17/2023 6-10 (A) Bacteria, ur 11/17/2023 Trace (A) Mucous, ur 11/17/2023 Present (A) Culture Reflex Comment 11/17/2023 Reflex to urine culture will be performed. Report 11/17/2023 Value:Final Report: Less than 100,000 colonies/mL (clinically insignificant growth based on current clinical standards) Organism 11/17/2023 (CLINICALLY INSIGNIFICANT GROWTH No results displayed because visit has over 200 results. Admission on 10/27/2023, Discharged on 10/27/2023 Component Date Value WBC 10/27/2023 10.3 (H) Hgb 10/27/2023 10.7 (L) Hct 10/27/2023 34.5 (L) Plt 10/27/2023 309 MPV 10/27/2023 11.1 RBC 10/27/2023 3.52 (L) MCV 10/27/2023 98.0 (H) MCH 10/27/2023 30.4 MCHC 10/27/2023 31.0 (L) RDW CV 10/27/2023 13.9 RDW SD 10/27/2023 50.2 (H) NRBC abs 10/27/2023 0.00 Sodium 10/27/2023 144 Potassium, pl 10/27/2023 5.5 (H) Chloride 10/27/2023 108 CO2 10/27/2023 20 (L) Anion gap 10/27/2023 16 (H) BUN 10/27/2023 66 (H) Creatinine 10/27/2023 4.71 (H) Glucose 10/27/2023 192 Calcium 10/27/2023 9.3 eGFR 10/27/2023 9 (L) No results displayed because visit has over 200 results. There may be more visits with results that are not included. Adryan Swenson MD [facility] Office: This was a telemedicine visit with Barbara Chakraborty and her daughter, Areli, which took place via real-time video connection. During the visit, I was located in [facility] and the patient was located at home in the [facility]. Time started: 2:15 p.m. Time ended: 2:45 p.m. My total encounter time on 03/16/2024 was 30 minutes which was spent in the activities documented inthe note. This includes time spent prior to the visit and after the visit in direct care of the patient. This time does not include time spent in any separately reportable services. I have explained the option of participating in a telemedicine visit to the patient. After being given an opportunity to ask questions about and discuss this type of visit, the patient verbally consented to proceeding with the telemedicine visit. The patient understands that this service replaces an office visit and they may be billed and/or responsible for any applicable copayments. A guest was not included in this video visit. documented in this encounter Miscellaneous Notes * Assessment & Plan Note - Adryan Swenson MD - 03/16/2024 3:52 PM CDT Associated Problem(s): Schizoaffective disorder, bipolar type (CMS/HCC) (HCC) Chronic, persistent, functioning slightly below baseline at [...] and re-evaluate at next interval as discussed. documented in this encounter Plan of Treatment Upcoming Encounters Date Type Department Care Team (Latest Contact Info) Description 07/13/2024 9:00 AM SALES AND LEASING AGENT Hospital Encounter [facility] [address] [place] [address] Jaya Grier MD [address] [place] [address] [address] [place] [address] 07/13/2024 9:00 AM SALES AND LEASING AGENT - 07/13/2024 9:30 AM SALES AND LEASING AGENT Surgery [facility] [address] [place] [address] Jaya Grier MD [address] [place] [address] [address] [place] [address] ESOPHAGOGASTRODUODENOSCOPY Scheduled Procedures Name Priority Associated Diagnoses Date/Ti ky ESOPHAGOGASTRODUODENOSCOPY Anemia, unspecified type Gastritis without bleeding, unspecified chronicity, unspecified gastritis type 07/13/2024 9:00 AM SALES AND LEASING AGENT COLONOSCOPY Iron deficiency anemia due to chronic blood loss Scheduled Referrals Name Type Priority Associated Diagnoses Order Schedule Ambulatory referral order to Occupational Therapy - Outpatient Referral Routine Left hand pain Expected: 04/01/2024 (Approximate), Expires: 03/16/2025 documented as of this encounter Visit Diagnoses Diagnosis Left hand pain- Primary Pain in soft tissues of limb Pain in left arm Schizoaffective disorder, bipolar type (CMS/HCC) (HCC) Schizoaffective disorder, unspecified condition Involuntary movements Anemia, unspecified type Gastritis without bleeding, unspecified chronicity, unspecified gastritis type documented in this encounter 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 06/26/2024 3:05 AM SALES AND LEASING AGENT documented as of this encounter Care Teams Physicians And Surgeons Relationship Specialty Start Date End Date Cherelle Corcoran MD PCP - General Family Medicine 08/30/19 Mark Queen MD Consulting Physician Infectious Diseases 01/10/20 Rudolph Welch MD [address] [facility] [address] [place] [address] Consulting Physician Infectious Diseases 12/05/22 Markie Ryan MD [address] [facility] [address] [place] [address] Consulting Physician Nephrology 12/05/22 Dulce Vega RN [address] [place] [address] [address] [place] [address] Taxation Consultant 10/07/23 05/03/24 [place] [address] [address] [facility] [address] [place] [address] Consulting Physician Nephrology 10/22/23 Jaya Grier MD [address] [facility] [address] [place] [address] Consulting Physician Gastroenterology 02/01/24 documented as of this encounter
--- OUTSIDE RECORDS SUMMARY | 2024-07-04 04:01 | XMS_ITS | Encounter Summary ---
Author Organization [facility] Healthcare Address [address] [place] [address] Care Team Providers Care Body Artist Name Role Phone Cherelle Corcoran MD Primary Care Pro vider Mark Queen MD Unavailable [phone] Rudolph Welch MD Unavailable Markie Ryan MD Unavailable [phone] Dulce Vega RN Unavailable [phone] Jimbo Strauss MD Unavailable [phone] Jaya Grier MD Unavailable Reason for Referral * Physical Therapy (Routine) - Closed Specialty Diagnoses / Procedures Referred By Contac t Referred To Contact Physical Therapy Diagnoses Left shoulder [place], [place] [address] [place] [address] Phone: tel: fax: [facility] Physical Therapy [address] [place] [address] Phone: tel: fax: Referral ID Status Reason Start Date Expiration Date V isits Requested Visits Authorized [id number] Closed Evaluate and Treat 03/21/2024 06/21/2024 12 12 Question Answer PTRFR PT Evaluate and Treat Therapy options discussed with patient? Yes Location provided for therapy services is: Patient requested/Patient preferred Please select the performing region: External Order [171] To loc/pos [facility] Dakotah Bravo [[id number]] # of visits: 12 Comments Eval and Treat Left shoulder pain Encounter Details Date Type Department Care Team (Late st Contact Info) Description 03/09/2024 Telephone [facility] Medical Group Orthopedics and Sports Medicine [address] [place] [address] [address] [place] [address] Demetri Bacon MD [address] [place] [address] [address] [place] [address] Social History Tobacco Use Types Packs/Day [...] materials from doctor or pharmacy Often 01/20/2024 [facility] Utilities Answer Date Recorded In the [...] week 02/01/2024 How often do you attend [facility] or yarsanism services? More than 4 times per year [...] place to sleep or slept in a correction (including now)? No 10/30/2023 Housing Stability Vital Sign Answer Fuentes e Recorded In the last 12 months, was t here a time when you were not able to pay the mortgage or rent on time? No 02/01/2024 In the past 12 months, how m any times have you moved where you were living? 0 02/01/2024 At any time in the past 12 m ont, were you homeless or living in a correction (including now)? No 02/01/2024 Personal Safety Answer Date Recorded Have you ever been in or are you currently in a harmful physical or emotional relationship or is someone making you feel afraid or unsafe? Denies 03/01/2024 Comments No Sex and Gender Information Value Date Recorded Sex Assigned at Not on file Legal Sex Female 9:03 AM BLUE PRINTS TRIMMER Gender Identity Female 02/08/2020 6:39 PM CDT Sexual Orientation Not on file documented as of this encounter Miscellaneous Notes * Telephone Encounter - Sandra Esparza MA - 03/09/2024 8:47 AM CDT Patient called requesting pt order be placed. Please see pend order for approval, once approved I will fax it to [facility] to [facility] dakotah b[facility], confirmation received 03/09/24 documented in this encounter Plan of Treatment Upcoming Encounters Date Type Department Care Team (Latest Contact Info) Description 07/13/2024 9:00 AM BLUE PRINTS TRIMMER Hospital Encounter [facility] [address] [place] [address] Jaya Grier MD [address] [facility] [address] [place] [address] 07/13/2024 9:00 AM BLUE PRINTS TRIMMER - 07/13/2024 9:30 AM BLUE PRINTS TRIMMER Surgery [facility] [address] [place] [address] Jaya Grier MD [address] [facility] [address] [place] [address] ESOPHAGOGASTRODUODENOSCOPY Scheduled Procedures Name Priority Associated Diagnoses Date/Ti me ESOPHAGOGASTRODUODENOSCOPY Anemia, unspecified type Gastritis without bleeding, unspecified chronicity, unspecified gastritis type 07/13/2024 9:00 AM BLUE PRINTS TRIMMER COLONOSCOPY Iron deficiency anemia due to chronic blood loss Scheduled Referrals Name Type Priority Associated Diagnoses Orde r Schedule Ambulatory referral order to Physical Therapy - Outpatient Referral Routine Left shoulder pain, unspecified chronicity Expected: 03/23/2024 (Approximate), Expires: 03/09/2025 documented as of this encounter Visit Diagnoses Diagnosis Left shoulder pain, unspecified chronicity- Primary Anemia, unspecified type Gastritis without bleeding, unspecified chronicity, unspecified gastritis type documented in this encounter 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 06/26/2024 3:05 AM BLUE PRINTS TRIMMER documented as of this encounter Care Teams Body Artist Relationship Specialty Start Date End Date Cherelle Corcoran MD PCP - General Family Medicine 08/30/19 Mark Queen MD Consulting Physician Infectious Diseases 01/10/20 Rudolph Welch MD [address] [facility] [address] [place] [address] Consulting Physician Infectious Diseases 12/05/22 Markie Ryan MD [address] [facility] [address] [place] [address] Consulting Physician Nephrology 12/05/22 Dulce Vega, ALIREZA [address] [place] [address] [address] [place] [address] Cemetery Workers Supervisor 10/07/23 05/03/24 [place] [address] [address] Consulting Physician Nephrology 10/22/23 Jaya Grier MD [address] [facility] [address] [place] [address] Consulting Physician Gastroenterology 02/01/24 documented as of this encounter
--- OUTSIDE RECORDS SUMMARY | 2024-07-04 04:01 | XMS_ITS | Encounter Summary ---
Author Organization [facility] Healthcare Address [address] [place] [address] Care Team Providers Care Forest Resources Professor Name Role Phone Cherelle Corcoran MD Primary Care Pro vider Mark Queen MD Unavailable [phone] Rudolph Welch MD Unavailable Markie Ryan MD Unavailable [phone] Dulce Vega RN Unavailable Jimbo Strauss MD Unavailable [phone] Jaya Grier MD Unavailable Reason for Referral * Procedure (Routine) - Authorized Specialty Diagnoses / Procedures Referred By Contac t Referred To Contact Diagnoses Complete tear of left rotator cuff, unspecified whether traumatic Procedures Large Joint (Hip, Knee, Shoulder) Injection: L subacromial bursa Demetri Bacon MD [address] [facility] [place] [address] Phone: tel: fax: [facility] Medical Group Referral ID Status Reason Start Date Expiration Date V isits Requested Visits Authorized [id number] Authorized 03/04/2024 04/03/2025 1 1 Reason for Visit * Reason Comments Pain Encounter Details Date Type Department Care Team (Late st Contact Info) Description 03/04/2024 9:45 AM CDT Office Visit [facility] Medical [facility] Orthopedics and Sports Medicine [address] [place] [address] [address] [place] [address] Demetri Bacon MD [address] [place] [address] Complete tear of left rotator cuff, unspecified whether traumatic (Primary Dx) Social History Tobacco Use Types Packs/Day Years [...] materials from doctor or pharmacy Often 01/20/2024 [facility] Utilities Answer Date Recorded In the past 12 months has e [employer], gas, oil, or water [facility] [employer] threatened to shut off services in your [...] often do you attend chur ch or zoroastrian services? More than 4 times per year [...] any time in the past 12 m [facility], were you homeless [...] on file Legal Sex Female 9:03 AM PROVIDER SCRIBE Gender Identity Female 02/08/2020 6:39 PM CDT Sexual Orientation Not on file documented as of this encounter Last Filed Vital Signs Vital Sign Reading Time Taken Comments Blood Pressure - - Pulse - - Temperature - - Respiratory Rate - - Oxygen Saturation - - Inhaled Oxygen Concentration - - Weight 59 kg (130 lb) 03/04/2024 9:56 AM CDT Height 157.5 cm (5' 2 ) 03/04/2024 9:56 AM CDT Body Mass Index 23.78 03/04/2024 9:56 AM CDT documented in this encounter Progress Notes * Demetri Bacon MD - 03/04/2024 9:45 AM CDTAssociated Order(s): Large Joint (Hip, Knee, Shoulder) Injection: L subacromial bursa Post-Procedure Diagnose(s): Complete tear of left rotator cuff, unspecified whether traumatic Images from the original note were not included. VISIT DATE: 03/04/2024 CHIEF COMPLAINT Pain of the Left Shoulder HISTORY OF PRESENT ILLNESS History of Present Illness The patient, with a history of diabetes, presents with chronic shoulder pain that has been ongoing for several months. The pain is severe, rating it as a nine on a scale of one to ten. The patient has been managing the pain with Tylenol and physical therapy, which has reduced the pain to a six. Thepatient also reports pain in the neck region. The patient has had an MRI and x-rays of the shoulder, which show a torn rotator cuff and arthritis in the shoulder. The patient denies any specific injury that may have caused the pain. The patient also reports that the pain is more severe in the neck region. MEDICATIONS She has a current medication list which includes the following prescription(s): acetaminophen, aspirin, atorvastatin, benzonatate, freestyle sandra 3 sensor, carvedilol, docusate sodium, ferosul, flash glucose scanning reader, freestyle sandra 2 sensor, fluticasone propionate, freestyle sandra 3 reader, gabapentin, hydralazine, insulin glargine, insulin lispro, lidocaine, nifedipine cc, pantoprazoledr, easy touch, polyethylene glycol, sucralfate, sucroferric oxyhydroxide, benztropine, calcium acetate(phosphat bind), risperidone, tramadol, and [DISCONTINUED] omeprazole. ALLERGIES She has no known allergies. SOCIAL HISTORY reports that she has never smoked. She has never been exposed to tobacco smoke. She has never used smokeless tobacco. She reports that she does not use drugs. Patient denies consuming alcoholic drinks. PHYSICAL EXAM Physical Exam MUSCULOSKELETAL: Forward flexion of the neck produces axial pain in the back of the neck. Tenderness over the trapezius. Pain localized to the left side of the shoulder and chest wall. Forward elevation of the arm to 140 degrees produced pain. External rotation of the arm to 10 degrees. Internal rotation of the arm to L5. Pushing against resistance with the arm produced pain in the neck. Thumb extension rated 3 out of 5. Electrician Supervisor strength rated 4 out of 5. Interossei strength rated 4 plus. Biceps and triceps strength rated 4 plus. Negative Spurling's test. No pain with neck extension. Right upperextremity is warm well perfused. IMAGING Results I reviewed interpreted x-rays of the patient's left shoulder from 01/31/2024. There is superior elevation of the left humeral head with a decreased acromial humeral interval. There did appear to be asuperior humeral head osteophyte. There is narrowing of the acromioclavicular joint space. The glenohumeral joint is otherwise located. I reviewed interpreted an MRI scan of the patient's left shoulder from 01/29/2024. The patient doeshave a massive retracted tear of the rotator cuff retracted with the musculotendinous junction retracted near the glenoid. There is a moderate wear of the superior glenohumeral joint cartilage. Thereis effusion in the subacromial space. There was high-grade partial-thickness tearing of the subscapularis tendon. The long head of the biceps tendon is poorly visualized in the bicipital groove. The patient has moderate fatty atrophy of the infraspinatus and supraspinatus muscle bellies and superior half of the subscapularis muscle belly. There are arthritic changes of the acromioclavicular jointspace. There is spurring of the anterior acromion. Diagnoses and all orders for this visit: Complete tear of left rotator cuff, unspecified whether traumatic (Primary) - Large Joint (Hip, Knee, Shoulder) Injection: L subacromial bursa ASSESSMENT 73-year-old female with moderate left rotator cuff tear arthropathy 2. Multiple medical problems including Alzheimer's dementia 3. cervicalgia Assessment & Plan Shoulder Pain Chronic shoulder pain for several months, worsened recently. MRI and X-ray show rotator cuff tear arthropathy with arthritis. Pain improved from 9/10 to 6/10 with physical therapy. Currently managed with Tylenol. -Administer corticosteroid injection in the shoulder. -Continue physical therapy. -Consider surgical options if conservative management fails, including arthroscopic debridement, balloon spacer, or shoulder replacement. Neck Pain Chronic neck pain, possibly related to shoulder pain. Pain with forward flexion of the neck and tenderness over the trapezius. -Refer to neck specialist for further evaluation and management. -Follow-up in 12 weeks to assess response to treatment. Large Joint (Hip, Knee, Shoulder) Injection: L subacromial bursa Performed by: Demetri Bacon MD Authorized by: Demetri Bacon MD Large Joint Injection/Aspiration: Consent Given by: Patient Written consent obtained: Yes Supporting Documentation: Indications: Pain Procedure Details: Location: Shoulder Site: L subacromial bursa Prep: patient was prepped using a clean technique (The skin was anesthetized with ethyl chloride spray prior to the injection.) Needle Size: 25 G Medications: 2 mL lidocaine 10 mg/mL (1 %); 40 mg triamcinolone 40 mg/mL Patient tolerance: Patient tolerated the procedure well with no immediate complications Demetri Bacon MD documented in this encounter Plan of Treatment Upcoming Encounters Date Type Department Care Team (Latest Contact Info) Description 07/13/2024 9:00 AM PROVIDER SCRIBE Hospital Encounter [facility] [address] [place] [address] Jaya Grier MD [address] [facility] [address] [place] [address] 07/13/2024 9:00 AM PROVIDER SCRIBE - 07/13/2024 9:30 AM PROVIDER SCRIBE Surgery [facility] [address] [place] [address] Jaya Grier MD [address] [facility] [address] [place] [address] ESOPHAGOGASTRODUODENOSCOPY Scheduled Procedures Name Priority Associated Diagnoses Date/Ti ut ESOPHAGOGASTRODUODENOSCOPY Anemia, unspecified type Gastritis without bleeding, unspecified chronicity, unspecified gastritis type 07/13/2024 9:00 AM PROVIDER SCRIBE COLONOSCOPY Iron deficiency anemia due to chronic blood loss documented as of this encounter Procedures Procedure Name Priority Date/Time Associated Diagnosis Comments AR ARTHROCENTESIS ASPIR&/INJ MAJOR JT/BURSA W/O US Routine 03/04/2024 9:45 AM CDT Complete tear of left rotator cuff, unspecified whether traumatic documented in this encounter Results * AR ARTHROCENTESIS ASPIR&/INJ MAJOR JT/BURSA W/O US (03/04/2024 9:45 AM CDT) Narrative Demetri Bacon MD - 03/04/2024 9:45 AM CDT Demetri Bacon MD ? 03/04/2024 11:09 AM Large Joint (Hip, Knee, Shoulder) Injection: L subacromial bursa Performed by: Demetri Bacon MD Authorized by: Demetri Bacon MD ?? Large Joint Injection/Aspiration: ??Consent Given by: ??Patient ??Written consent obtained: Yes ?? Supporting Documentation: ??Indications: ??Pain Procedure Details: ??Location: ??Shoulder ??Site: ??L subacromial bursa ??Prep: patient was prepped using a clean technique (The skin was anesthetized with ethyl chloride spray prior to the injection.) ?Needle Size: ??25 G ??Medications: ??2 mL lidocaine 10 mg/mL (1 %); 40 mg triamcinolone 40 mg/mL ??Patient tolerance: ??Patient tolerated the procedure well with no immediate complications us Demetri Bacon MD IN CLINIC/BEDSIDE ORDERABL ES Edited Result - Final documented in this encounter Visit Diagnoses Diagnosis Complete tear of left rotator cuff, unspecified whether traumatic- Primary Anemia, unspecified type Gastritis without bleeding, unspecified chronicity, unspecified gastritis type documented in this encounter Administered Medications Inactive Administered Medications - up to 3 most recent administrations Medication Order MAR Action Action Date Dose Rate Site lidocaine (XYLOCAINE) 10 mg/mL (1 %) injection 2 mL 2 mL, One-Time Injection, Starting on Thu03/04/24 at 0945, For 1 dose, Indications: Administration of Local AnesthesiaIndications:Adminis tration of Local Anesthesia Given 03/04/2024 9:45 AM CDT 2 mL Left Shoulder triamcinolone (KENALOG) 40 mg/mL injection 40 mg 40 mg, intra-articular, One-Time Injection, Starting on Thu03/04/24 at 0945, For 1 doseIndications:Complete tear of left rotator cuff, unspecified whether traumatic Given 03/04/2024 9:45 AM CDT 40 mg Left Shoulder documented in this encounter 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 06/26/2024 3:05 AM PROVIDER SCRIBE documented as of this encounter Care Teams Forest Resources Professor Relationship Specialty Start Date End Date Cherelle Corcoran MD PCP - General Family Medicine 08/30/19 Mark Queen MD Consulting Physician Infectious Diseases 01/10/20 Rudolph Welch MD [address] [facility] [address] [address] [place] [address] Consulting Physician Infectious Diseases 12/05/22 Markie Ryan MD [address] [facility] [address] [place] [address] Consulting Physician Nephrology 12/05/22 Dulce Vega, ALIREZA [address] [place] [address] [address] [place] [address] Corporate Intern 10/07/23 05/03/24 [place] [id number] [facility] [address] [place] [address] Consulting Physician Nephrology 10/22/23 Jaya Grier MD [address] [facility] [address] [address] [place] [address] Consulting Physician Gastroenterology 02/01/24 documented as of this encounter
--- OUTSIDE RECORDS SUMMARY | 2024-07-04 04:01 | XMS_ITS | Encounter Summary ---
Author Organization [facility] Healthcare Address [address] [place] [address] Care Team Providers Care Apprentice Painter Brush Name Role Phone Cherelle Corcoran MD Primary Care Pro vider Mark Queen MD Unavailable [phone] Rudolph Welch MD Unavailable Markie Ryan MD Unavailable [phone] Dulce Vega RN Unavailable Jimbo Strauss MD Unavailable [phone] Jaya Grier MD Unavailable Reason for Visit * Reason Onset Date Comments Authorization/Certification 04/12/2024 Encounter Details Date Type Department Care Team ([facility] st Contact Info) Description 04/12/2024 Telephone [facility] Primary Care at [place] [id number] [facility] [address] [place] [address] Cherelle Corcoran MD [facility] [address] [place] [address] Authorization/Certifica tion Social History Tobacco Use Types Packs/Day Years [...] the past 12 months has th e [employer], gas, oil, or water company threatened to [...] often do you attend chur ch or faith services? More than 4 times per year 04/20/2024 Do you belong to any clubs o r organizations such as restorationist groups, unions, fraternal or athletic groups, or [...] any time in the past 12 m [facility], were you homeless or living [...] on file Legal Sex Female 9:03 AM NAT INSTRUCTOR Gender Identity Female 02/08/2020 6:39 PM CDT Sexual Orientation Not on file documented as of this encounter Miscellaneous Notes * Telephone Encounter - Box, HONEY Delgado - 04/19/2024 10:59 AM CDT Spoke with pt daughter and she is going to call the pharmacy to see how the script was ran initially. She did not have to pay for the first script and I am unable to complete online. She will send methe information via [employer]. * Telephone Encounter - Monserrat Daniel - 04/18/2024 4:09 PM CDT Call Back Caller???s Concern: patient's daughter Areli (on HIPAA) is returning a missed call from Sandy on 04/13. IT FIELD TECHNICIAN read Areli Sandy's message, Areli states they haven't gotten the Tramadol Rx because the [facility] will be $300.00 with an RX card. Areli states they were having problems when running things through on her medicaid card for a few months so she's asking if they can run this through on medicaid again to see if it's covered. Does message need to be routed? Yes-Action Needed * Telephone Encounter - Sandy Mota MA - 04/13/2024 10:01 AM CDT Lmov for pt daughter to return call. Please see if she has called the pharmacy OR to see if she haspicked up the tramadol at [facility] or not yet. Thanks! * Telephone Encounter - Sandy Mota MA - 04/12/2024 3:34 PM CDT Spoke with pt daughter. PA has been denied numerous times since earlier this year. She was told to use goodrx or pay [facility] for it. I will try to submit a new PA again tomorrow * Telephone Encounter - Christine Bernardo - 04/12/2024 2:58 PM CDT Prior Authorization for Medication Medication(s) Name/Dose: traMADoL (ULTRAM) 25 mg tablet Is the patient out of the medication? Yes Pharmacy that medication was sent to: [id number] Is insurance in chart accurate? Yes Additional Comments: The patient daughter stated that the patient requires a prior authorization before this medication can be dispensed to the patient. Does message need to be routed? Yes-Action Needed documented in this encounter Plan of Treatment Upcoming Encounters Date Type Department Care Team (Latest Contact Info) Description 07/13/2024 9:00 AM NAT INSTRUCTOR Hospital Encounter [facility] [address] [place] [address] Jaya Grier MD [address] [place] [address] [address] [place] [address] 07/13/2024 9:00 AM NAT INSTRUCTOR - 07/13/2024 9:30 AM NAT INSTRUCTOR Surgery [facility] [address] [place] [address] Jaya Grier MD [address] [place] [address] [address] [place] [address] ESOPHAGOGASTRODUODENOSCOPY Scheduled Procedures Name Priority Associated Diagnoses Date/Ti mo ESOPHAGOGASTRODUODENOSCOPY Anemia, unspecified type Gastritis without bleeding, unspecified chronicity, unspecified gastritis type 07/13/2024 9:00 AM NAT INSTRUCTOR COLONOSCOPY Iron deficiency anemia due to chronic blood loss documented as of this encounter Visit Diagnoses Not on filedocumented in this encounter 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 06/26/2024 3:05 AM NAT INSTRUCTOR COVID: Suspected 04/19/2024 04/19/2024 04/20/2024 12:44 AM CDT documented as of this encounter Care Teams Apprentice Painter Brush Relationship Specialty Start Date End Date Cherelle Corcoran MD PCP - General Family Medicine 08/30/19 Mark Queen MD Consulting Physician Infectious Diseases 01/10/20 Rudolph Welch MD [address] [facility] [address] [place] [address] Consulting Physician Infectious Diseases 12/05/22 Markie Ryan MD [address] [facility] [address] [place] [address] Consulting Physician Nephrology 12/05/22 Dulce Vega, ALIREZA [address] [address] [address] [place] [address] Delivery Agent 10/07/23 05/03/24 [place] [id number] [address] Consulting Physician Nephrology 10/22/23 Jaya Grier MD [address] [facility] [address] [place] [address] Consulting Physician Gastroenterology 02/01/24 documented as of this encounter
--- OUTSIDE RECORDS SUMMARY | 2024-07-04 04:01 | XMS_ITS | Encounter Summary ---
Author Organization [facility] Healthcare Address [address] [place] [address] Care Team Providers Care Field Horticultural Specialty Grower Name Role Phone Cherelle Corcoran MD Primary Care Pro vider Mark Queen MD Unavailable [phone] Rudolph Welch MD Unavailable [phone] Markie Ryan MD Unavailable [phone] Dulce Vega RN Unavailable Jimbo Strauss MD Unavailable [phone] Jaya Grier MD Unavailable Reason for Visit * Reason Comments PT Treatment * Physical Therapy (Routine) - Closed Specialty Diagnoses / Procedures Referred By Contac t Referred To Contact Physical Therapy Diagnoses Left shoulder pain, unspecified chronicity Demetri Naranjo MD [address] [address] Phone: tel: fax: [facility] OP Physical Therapy [address] [place] [address] Phone: tel: fax: Referral ID Status Reason Start Date Expiration Date V isits Requested Visits Authorized [id number] Closed Evaluate and Treat 03/21/2024 06/21/2024 12 12 Encounter Details Date Type Department Care Team (Late st Contact Info) Description 03/31/2024 9:30 AM CDT Therapy [facility] Hand & Shoulder [address] [address] Cesar Angeles PT Left shoulder pain, unspecified chronicity (Primary Dx) Social History Tobacco Use Types [...] materials from doctor or pharmacy Often 01/20/2024 [facility] Utilities Answer Date Recorded In the past [...] often do you attend chur ch or anglican services? More than 4 times per year 02/01/2024 Do you belong to any clubs o r organizations such as buddhism groups, unions, fraternal or athletic groups, or [...] any time in the past 12 m [facility], were you homeless or living in a half-way (including now)? No 02/01/2024 Personal Safety Answer Date Recorded Have you ever been in or are you currently in a harmful physical or emotional relationship or is someone making you feel afraid or unsafe? Denies 03/01/2024 Comments No Sex and Gender Information Value Date Recorded Sex Assigned at Not on file Legal Sex Female 9:03 AM CONTINUITY DIRECTOR Gender Identity Female 02/08/2020 6:39 PM CDT Sexual Orientation Not on file documented as of this encounter Progress Notes * Cesar Angeles, PT - 03/31/2024 9:30 AM CDT ICD-10-CM 1. Left shoulder pain, unspecified chronicity M25.512 DEMETRI NARANJO. Copy diagnosis, goals, cert, etc from eval: Short-Term Goals: to be met by 04/13/24 Patient will be instructed in HEP Injured Shoulder PROM: flex 140 deg. Injured Shoulder PROM: IR 60 deg. Long-Term Goals: to be met by 06/23/24 Patient will be independent in HEP (new and revised). Injured Shoulder AROM: flex 130 deg. To reach into overhead cabinets Injured Shoulder AROM: IR T12 to wash/dress easily Patient Goal: regain normal use of shoulder INITIAL CERTIFICATION DATES: From 03/23/2024 to 06/23/24 Date Date Date Date Date 03/23/24 03/31/24 Visit Number 1 2 Exercises/ Treatment Pt. Arrived 12 min late HP pre-tx. 5 min Pulleys flex PROM shoulder flex PROM shoulder IR PROM shoulder ER Table Slides flex Cane AAROM -ext -IR -ER 10 x 3 0sec 5 x 3 0sec 5 x 3 0sec 15 x 5 sec 10x30 sec 10x30 sec 10x30 sec Held time No time ADD all IFC 10 min 10 min Progress Note/Re-Cert * Cesar Angeles, PT - 03/31/2024 9:30 AM CDT Images from the original note were not included. Physical Therapy Visit/Daily Note 03/31/2024 Barbara Chakraborty 1950 ICD-10-CM 1. Left shoulder pain, unspecified chronicity M25.512 DEMETRI NARANJO [employer] Utilized: NO Patient is identified by name and date of on this visit. Subjective: Pt reports no improvement in shoulder since initial visit. Pain today is 8/10. Objective: Objective Measurement/Observation: Pt. Arrived 10 min late. Mild guarding with shoulder PROM. Specific exercises and treatment interventions are outlined on exercise worksheet document. Treatment Performed on This Visit: Manual Therapy (body part and techniques): Therapeutic Procedure/Exercise:shoulder ROM Modalities:HP; IFC HEP given: Patient education: Assessment: The patient demonstrated a good response to today's treatment as evidenced by these objective findings: only mild guarding with shoulder PROM. The patient continues to demonstrate deficits with shoulder ROM. Short-Term Goals: to be met by 04/13/24 Patient will be instructed in HEP Injured Shoulder PROM: flex 140 deg. Injured Shoulder PROM: IR 60 deg. Long-Term Goals: to be met by 06/23/24 Patient will be independent in HEP (new and revised). Injured Shoulder AROM: flex 130 deg. To reach into overhead cabinets Injured Shoulder AROM: IR T12 to wash/dress easily Patient Goal: regain normal use of shoulder INITIAL CERTIFICATION DATES: From 03/23/2024 to 06/23/24 Plan: Patient would benefit from the following modification on next visit: progress per POC. Cesar Angeles PT [facility] ATTENTION PHYSICIAN If you are unable to electronically sign this document, please print this document and sign below to certify this plan of care/treatment plan. By signing this document, I certify that I have reviewedthis plan of care and support the treatment. Please fax back to . Thank you. Provider Signature: Date: documented in this encounter Plan of Treatment Upcoming Encounters Date Type Department Care Team (Latest Contact Info) Description 07/13/2024 9:00 AM CONTINUITY DIRECTOR Hospital Encounter [facility] [address] [place] [address] Jaya Grier MD [address] [facility] [address] [place] [address] 07/13/2024 9:00 AM CONTINUITY DIRECTOR - 07/13/2024 9:30 AM CONTINUITY DIRECTOR Surgery [facility] [address] [place] [address] Jaya Grier MD [address] [facility] [address] [place] [address] ESOPHAGOGASTRODUODENOSCOPY Scheduled Procedures Name Priority Associated Diagnoses Date/Ti me ESOPHAGOGASTRODUODENOSCOPY Anemia, unspecified type Gastritis without bleeding, unspecified chronicity, unspecified gastritis type 07/13/2024 9:00 AM CONTINUITY DIRECTOR COLONOSCOPY Iron deficiency anemia due to chronic blood loss documented as of this encounter Visit Diagnoses Diagnosis Left shoulder pain, unspecified chronicity- Primary Anemia, unspecified type Gastritis without bleeding, unspecified chronicity, unspecified gastritis type documented in this encounter 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 06/26/2024 3:05 AM CONTINUITY DIRECTOR documented as of this encounter Care Teams Field Horticultural Specialty Grower Relationship Specialty Start Date End Date Cherelle Cocroran MD PCP - General Family Medicine 08/30/19 Mark Queen MD Consulting Physician Infectious Diseases 01/10/20 Rudolph Welch MD [address] [facility] [address] [place] [address] Consulting Physician Infectious Diseases 12/05/22 Markie Ryan MD [address] [facility] [address] [place] [address] Consulting Physician Nephrology 12/05/22 Dulce Vega, RN [address] [place] [address] [address] [place] [address] Pulp Drier 10/07/23 05/03/24 [place] [address] [facility] [address] [place] [address] Consulting Physician Nephrology 10/22/23 Jaya Grier MD [address] [facility] [address] [place] [address] Consulting Physician Gastroenterology 02/01/24 documented as of this encounter
--- OUTSIDE RECORDS SUMMARY | 2024-07-04 04:01 | XMS_ITS | Encounter Summary ---
Author Organization [facility] Healthcare Address [address] [place] [address] Care Team Providers Care Cloud Engagement Partner Name Role Phone Cherelle Corcoran MD Primary Care Pro vider Mark Queen MD Unavailable [phone] Rudolph Welch MD Unavailable Markie Ryan MD Unavailable Dulce Vega RN Unavailable Jimbo Strauss MD Unavailable Jaya Grier MD Unavailable Reason for Visit * Auth/Cert (Routine) Specialty Diagnoses / Procedures Referred By Contac t Referred To Contact Diagnoses Screening for colon cancer Screening for colon cancer [Z12.11] Procedures VT COLONOSCOPY,DIAGNOSTIC COLONOSCOPY Referral ID Status Reason Start Date Expiration Date Visits Re quested Visits Authorized [id number] 1 1 Encounter Details Date Type Department Care Team (Late st Contact Info) Description 03/01/2024 8:49 AM CDT Anesthesia Event [facility] [address] [place] [address] Arley Moreira MD [address] [facility] [address] [place] [address] Alvarado Ng MD [facility] [facility] [address] [address] Anesthesia Record Procedure Summary Procedure Name Responsible Anesthesiologist Anesthesia Start Time Anesthesia Stop Time COLON BIOPSY (Colon) Arley Moreira MD 03/01/24 0849 03/01/24 0913 Events Date Time Event Comment 03/01/2024 0658 0846 In Room 0849 An Start 0849 An Start Data 0852 An Induction The patient was reevaluated immediately before moderate or deep sedation use and before anesthesia induction. 0854 Anesthesia Ready 0854 Proc Start 0907 Proc Fin 0909 Out of Room 0910 Handoff to RN I completed my handoff to the receiving nurse during which we: 1. Patient identified 2. Responsible provider identified 3. Pertinent medical history reviewed 4. Procedure type and surgical course discussed 5. Intraoperative anesthetic management and any significant issues discussed 6. Expectations and concerns for postop period discussed 7. Questions solicited from receiving nurse 8. Patient disposition at the time of handoff: phase II 912 An Stop Meds Name Total propofol 100 mg lidocaine 2 % 40 mg sodium chloride 0.9% infusion 200 mL * Agents Name O2% N2O O2 N2O Air * Blood No blood administrations on file. Lines, Drains, and Airways Type Details Placement Removal Hemodialysis Cath Double 10/15/23; 913; No; Yes; Yes; Chlorhexidine; Yes; Yes; Injectable; Position of comfort, Distraction; Tunneled catheter; #1 Red,; #2 Blue,; 15.5; (24); Right; Internal Jugular; Guidewire with Ultrasound Guidance; Yes; Fluoroscopy; 24 cm; Sutured, Transparent dressing; 1; Tolerated well 10/15/23913 by Kita Spencer, ALIREZA Peripheral IV Placement Date: 03/01/24; Placement Time: 821; Catheter Size: 22 G; Orientation: Left, Posterior; Location: Hand; Site Prep: Chlorhexidine; Technique: Anatomical landmarks; Inserted by: Rosa Medina RN; Insertion Attempts: 1; Removal Date: 04/19/24; Removal Reason: Removal date unknown/not present on admission 03/01/24821 by Rosa Medina RN 04/19/24 0000 by Monserrat Macias RN documented in this encounter Social History Tobacco Use Types Packs/Day Years [...] materials from doctor or pharmacy Often 01/20/2024 [facility] Utilities Answer Date Recorded In the past 12 months has th e [employer], gas, oil, or water company threatened to [...] week 02/01/2024 How often do you attend [facility] ch or taoism services? More than 4 times per year 02/01/2024 Do you belong to any clubs o r organizations such as zoroastrian groups, unions, fraternal or athletic groups, or [...] any time in the past 12 [address] [facility], were you homeless or living in a long-term (including now)? No 02/01/2024 Personal Safety Answer Date Recorded Have you ever been in or are you currently in a harmful physical or emotional relationship or is someone making you feel afraid or unsafe? Denies 03/01/2024 Comments No Sex and Gender Information Value Date Recorded Sex Assigned at Not on file Legal Sex Female 9:03 AM LOOM INSPECTOR Gender Identity Female 02/08/2020 6:39 PM CDT Sexual Orientation Not on file documented as of this encounter OR Notes * Anesthesia Postprocedure Evaluation - Arley Moreira MD - 03/01/2024 9:18 AM CDT Patient: Barbara Chakraborty Procedure Summary Date: 03/01/24 Room / Location: [facility] Anesthesia Start: 848 Anesthesia Stop: 912 Procedure: COLON BIOPSY (Colon) Diagnosis: Screening for colon cancer (Screening for colon cancer [Z12.11]) Providers: Jaya Grier MD Responsible Provider: Arley Moreira MD Anesthesia Type: MAC ASA Status: 3 Anesthesia Type: MAC Last vitals BP 147/62 Pulse 76 Temp 36.2 ??C (97.1 ??F) (Temporal) Resp 16 SpO2 98% Anesthesia Post Evaluation Patient location during evaluation: PACU Patient participation: complete - patient participated Level of consciousness: fully awake Pain management: adequate Airway patency: adequate Evidence of recall: no Cardiovascular status: acceptable Respiratory status: acceptable Hydration status: acceptable Pt is: normothermic Nausea/Vomiting status: none No notable events documented. * Anesthesia Preprocedure Evaluation - Arley Moreira MD - 02/29/2024 2:28 PM CDT Images from the original note were not included. Anesthesia Evaluation Barbara Chakraborty is a 73 y.o. female COLONOSCOPY (Colon) Pre-Op Diagnosis Codes: * Screening for colon cancer [Z12.11] HISTORY HPI Depression Schizophrenia (HCC) Diabetic neuropathy (HCC) Arthritis Hypertension Type 2 diabetes mellitus (HCC) Hyperlipidemia Dementia (HCC) CHF (congestive heart failure) (CMS/HCC) (HCC) Osteomyelitis (HCC) Movement disorder GERD (gastroesophageal reflux disease) Anemia HL (hearing loss) Rotator cuff tear, left CKD (chronic kidney disease) stage V requiring chronic dialysis (HCC) End stage chronic kidney disease (CMS/HCC) (HCC) Past Medical History Cardiovascular + Hypertension Hepatic / Heme + History of anemia Gastrointestinal + GERD Renal / + Renal disease + Dialysis Endocrine / Other + Diabetes mellitus Patient Active Problem List Diagnosis Date Noted Complete tear of left rotator cuff 02/05/2024 Upper GI bleeding 01/30/2024 Coffee ground emesis 01/29/2024 Screening for colon cancer 01/18/2024 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 01/05/2024 ESRD on dialysis ([facility]) 12/20/2023 Anemia of renal disease 12/20/2023 Syncope, unspecified syncope type 12/19/2023 Leukocytosis 12/19/2023 Renal disorder Left shoulder pain 12/11/2023 Arthropathy of left shoulder 12/11/2023 CKD (chronic kidney disease) stage 4, GFR 15-29 ml/min ([facility]) ([facility]) 12/07/2023 Tinnitus of both ears 11/04/2023 Mixed conductive and sensorineural hearing loss of both ears 11/04/2023 Dysfunction of both eustachian tubes 11/04/2023 ESRD on hemodialysis ([facility]) ([facility]) 11/02/2023 AMS (altered mental status) 10/30/2023 Leg swelling 10/07/2023 Bandemia 12/20/2022 Shortness of breath 12/13/2022 Chronic diastolic congestive heart failure ([facility]) ([facility]) 12/06/2022 Bibasilar consolidations 12/06/2022 Movement disorder 12/06/2022 Abnormal urinalysis 11/07/2022 Anemia in chronic kidney disease, on chronic dialysis ([facility]) 10/10/2022 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[facility]) 08/14/2022 Pulmonary nodule 11/16/2021 Physical deconditioning 11/15/2021 Toe necrosis ([facility]) ([facility]) 10/07/2021 Volume overload 09/06/2021 Retention of urine, unspecified 08/22/2021 Unspecified osteoarthritis, unspecified site 08/22/2021 Unsteadiness on feet 08/22/2021 Weakness 08/22/2021 Late onset Alzheimer's dementia without behavioral disturbance ([facility]) 08/19/2021 Encounter for Medicare annual wellness exam 01/08/2021 Schizoaffective disorder, bipolar type ([facility]) ([facility]) 10/10/2020 Mixed hyperlipidemia 04/03/2020 Iron deficiency anemia 04/02/2020 Gastroesophageal reflux disease without esophagitis 04/02/2020 History of amputation of toe ([facility]) ([facility]) 01/19/2020 Uncontrolled hypertension 12/13/2019 Type 2 diabetes mellitus with diabetic neuropathy, with long-term current use of insulin ([facility]) 08/30/2019 Diabetic neuropathy ([facility]) Past Medical History: Diagnosis Date Anemia Arthritis CHF (congestive heart failure) ([facility]) ([facility]) CKD (chronic kidney disease) stage V requiring chronic dialysis ([facility]) Dementia ([facility]) Depression Diabetic neuropathy ([facility]) End stage chronic kidney disease ([facility]) ([facility]) hemodialysis T Thu GERD (gastroesophageal reflux disease) HL (hearing loss) Hyperlipidemia Hypertension Movement disorder Osteomyelitis ([facility]) Rotator cuff tear, left Schizophrenia ([facility]) Type 2 diabetes mellitus ([facility]) Past Surgical History: Procedure Laterality Date SECTION Right right foot COLONOSCOPY EYE SURGERY cataracts FLUORO GUIDED INJECTION SHOULDER LEFT Left 12/18/2023 TOE AMPUTATION Right 01/06/2020 4th toe amp/ foot debridement/ Dr. Anat Pelayo TUNNELED LINE PLACEMENT > 5 YEARS N/A 10/15/2023 OB History 3 Para Term AB Living SAB IAB Ectopic Multiple Live Births No Known Allergies Med List Status: Nurse Complete Set By: Bob Ling RN at 02/24/2024 11:13 AM Taking? Last Dose Start Date End Date Provider acetaminophen 500 mg capsule Unknown -- -- Joe Ballard MD aspirin 81 mg chewable tablet 02/24/2024 12/28/23 -- Joe Ballard MD atorvastatin (LIPITOR) 40 mg tablet 02/24/2024 01/06/24 01/05/25 Kiley Nye NP Take 1 tablet (40 mg total) by mouth nightly benzonatate (TESSALON) 100 mg capsule Unknown 02/09/24 -- Cherelle Corcoran MD Take 1 capsule (100 mg total) by mouth 3 (three) times a day as needed for cough benztropine (COGENTIN) 2 mg tablet 02/24/2024 02/01/24 03/02/24 TelemaqueMichoacano MD Take 1 tablet (2 mg total) by mouth daily blood-glucose sensor (FreeStyle Madhav 3 Sensor) device -- 06/30/23 -- Smith Adan MD Use for continuous glucose monitoring. Change sensor every 14 days calcium acetate,phosphat bind, (PHOSLO) 667 mg capsule Not Taking 10/29/23 -- Cherelle Corcoran MD TAKE 1 CAPSULE(667 MG) BY MOUTH THREE TIMES DAILY WITH MEALS Patient not taking: Reported on 02/24/2024 Notes: Patient requests 90 days supply carvediloL (COREG) 6.25 mg tablet 02/24/2024 02/11/24 02/10/25 Lupe Draper, JARAD Take 1 tablet (6.25 mg total) by mouth 2 (two) times a day with meals docusate sodium (COLACE) 100 mg capsule -- 12/03/23 -- Demetri Villanueva MD Take 1 capsule (100 mg total) by mouth every 12 (twelve) hours Patient taking differently: Take 1 capsule (100 mg total) by mouth 2 (two) times a day as needed FeroSuL 325 mg (65 mg iron) tablet 02/24/2024 01/03/24 -- Joe Ballard MD flash glucose scanning reader [facility] -- 06/30/23 -- Smith Gibbs MD Use Madhav 3 reader to scan Madhav 3 sensor flash glucose sensor (FreeStyle Madhav 2 Sensor) kit -- 03/24/23 -- Radha Franco, JARAD Use to continually monitor glucose, change every 14 days fluticasone propionate (FLONASE) 50 mcg/actuation nasal spray Unknown -- -- Joe Ballard MD FreeStyle Madhav 3 [place] [facility] -- 09/25/23 -- Joe Ballard MD gabapentin (NEURONTIN) 100 mg capsule Past Week 01/11/24 -- Cherelle Corcoran MD Take 100 mg 3 times per week after hemodialysis. hydrALAZINE (APRESOLINE) 25 mg tablet -- 02/01/24 04/01/24 Telemaque, [place] Maldonado MD Take 1 tablet (25 mg total) by mouth 2 (two) times a day insulin glargine 100 unit/mL (3 mL) pen for injection 02/24/2024 -- -- Joe Ballard MD insulin lispro (HumaLOG, ADMELOG) 100 unit/mL vial for injection 02/24/2024 -- -- Joe Ballard MD lidocaine (ASPERCREME) 4 % adhesive patch,medicated -- -- -- Joe Ballard MD NIFEdipine (NIFEdipine CC) 60 mg 24 hr tablet -- 01/11/24 -- Cherelle Corcoran MD TAKE 1 TABLET BY MOUTH DAILY Notes: Patient requests [address] (PROTONIX) 40 mg EC tablet 02/24/2024 02/01/24 04/01/24 Michoacano Gibson MD Take 1 tablet (40 mg total) by mouth 2 (two) times a day pen needle, diabetic (Easy Touch) 32 gauge x 32 needle -- 12/02/23 -- Smith Adan MD USE DIRECTED FOUR TIMES DAILY polyethylene glycol (MIRALAX) 17 gram/dose bulk powder Unknown 10/22/23 -- Zhang Mendez MD Take 17 g by mouth daily as needed (Constipation) risperiDONE (RisperDAL) 2 mg tablet 02/24/2024 02/01/24 03/02/24 Michoacano Gibson MD Take 1 tablet (2 mg total) by mouth nightly sucralfate (CARAFATE) 1 gram tablet 02/24/2024 02/09/24 02/08/25 Cherelle Corcoran MD Take 1 tablet (1 g total) by mouth 4 (four) times a day Patient taking differently: Take 1 tablet (1 g total) by mouth 4 (four) times a day Does not take consistently sucroferric oxyhydroxide 500 mg tablet,chewable -- -- -- Joe Ballard MD traMADoL (ULTRAM) 25 mg tablet () -- 01/11/24 02/10/24 Cherelle Corcoran MD Take 1 tablet (25 mg total) by mouth every 8 (eight) hours as needed for pain Patient not taking: Reported on 02/09/2024 -- Ongoing Comment Monserrat Bermudez, PT 04/18/2022 10:08 AM 04/17/22 family oversees medication management. med bottles and list available in home. Zev Bermudez,PT No current facility-administered medications for this encounter. Current Outpatient Medications: aspirin 81 mg chewable tablet atorvastatin (LIPITOR) 40 mg tablet benztropine (COGENTIN) 2 mg tablet carvediloL (COREG) 6.25 mg tablet FeroSuL 325 mg (65 mg iron) tablet gabapentin (NEURONTIN) 100 mg capsule insulin glargine 100 unit/mL (3 mL) pen for injection insulin lispro (HumaLOG, ADMELOG) 100 unit/mL vial for injection pantoprazole DR (PROTONIX) 40 mg EC tablet risperiDONE (RisperDAL) 2 mg tablet sucralfate (CARAFATE) 1 gram tablet acetaminophen 500 mg capsule benzonatate (TESSALON) 100 mg capsule blood-glucose sensor (FreeStyle Madhav 3 Sensor) device calcium acetate,phosphat bind, (PHOSLO) 667 mg capsule docusate sodium (COLACE) 100 mg capsule flash glucose scanning reader misc flash glucose sensor (FreeStyle Madhav 2 Sensor) kit fluticasone propionate (FLONASE) 50 mcg/actuation nasal spray FreeStyle Madhav 3 [place] misc hydrALAZINE (APRESOLINE) 25 mg tablet lidocaine (ASPERCREME) 4 % adhesive patch,medicated NIFEdipine (NIFEdipine CC) 60 mg 24 hr tablet pen needle, diabetic (Easy Touch) 32 gauge x 5/32 needle polyethylene glycol (MIRALAX) 17 gram/dose bulk powder sucroferric oxyhydroxide 500 mg tablet,chewable traMADoL (ULTRAM) 25 mg tablet Social History Tobacco Use Smoking Status Never Passive exposure: Never Smokeless Tobacco Never Alcohol Use: Not At Risk (02/24/2024) AUDIT-C Frequency of Alcohol Consumption: Never Average Number of Drinks: Patient does not drink Frequency of Binge Drinking: Never Substance and Sexual Activity Drug Use Never Family History Problem Relation Age of Onset Diabetes Mother Heart disease Mother Kidney disease Mother Stomach cancer Father Alcohol abuse Father Diabetes Sister Diabetes Sister Diabetes Brother There were no vitals filed for this visit. PT: No results found for requested labs within last 30 days. INR: No results found for requested labs within last 30 days. APTT: No results found for requested labs within last 30 days. Hgb A1C: No results found for requested labs within last 30 days. CBC RBC: 02/01/2024: 3.28 M/cumm (L) RDW: No results found for requested labs within last 30 days. MCHC: 02/01/2024: 33.0 g/dL MCH: 02/01/2024: 30.8 pg MCV: 02/01/2024: 93.3 fL Hct: 02/01/2024: 30.6 % (L) Hgb: 02/01/2024: 10.1 g/dL (L) WBC: 02/01/2024: 7.9 K/cumm MPV: 02/01/2024: 10.1 fL Platelets: 02/01/2024: 269 K/cumm RDW CV: 02/01/2024: 15.7 % (H) RDW Sd: 02/01/2024: 53.4 fL (H) BMP Glucose: 02/01/2024: 100 mg/dL Calcium: 01/31/2024: 8.3 mg/dL (L) Sodium: 01/31/2024: 136 mmol/L Potassium: 01/31/2024: 4.0 mmol/L CO2: 01/31/2024: 26 mmol/L Chloride: 01/31/2024: 98 mmol/L BUN: 01/31/2024: 19 mg/dL Creatinine: 01/31/2024: 3.00 mg/dL (H) STOP-Bang Total Score: 3 DOS Physical Exam Medical history, medications, and allergies reviewed. Attestation: This PAT evaluation 03/01/2024. Airway Exam: Mallampati: II Cervical ROM: FROM TM distance: 3.5 Cardiovascular Exam: Rate: regular Rhythm: regular Pulmonary Exam: LCTA, bilat EENT Exam: trachea midline Dental Exam: Edentulous Current state: Patient's current state is cooperative. Anesthesia Plan ASA 3 My patient is approved for the Anesthesia Controlled Medication protocol when under care of a STRIKE PLATE ATTACHER Planned anesthesia: MAC Induction: Induction: intravenous. Postoperative Plan: No plan for postoperative opioid use. No postoperative mechanical ventilation intended. Patient's planned disposition post procedure is Outpatient. Informed Consent: Discussed plan with STRIKE PLATE ATTACHER. Anesthesia plan and risks discussed with patient. Consent and Attending signature: I and/or my designee have discussed the anesthesia plan, benefits, possible alternatives, parental presence at time of induction (if indicated), and clinically relevant risks that may include dental injury, unintentional awareness, and/or other complications. The patient and/or parent/legal guardian understand, and agree to proceed. All questions answered. documented in this encounter Plan of Treatment Upcoming Encounters Date Type Department Care Team (Latest Contact Info) Description 07/13/2024 9:00 AM LOOM INSPECTOR Hospital Encounter [facility] [address] [place] [address] Jaya Grier MD [address] [place] [address] [address] [place] [address] 07/13/2024 9:00 AM LOOM INSPECTOR - 07/13/2024 9:30 AM LOOM INSPECTOR Surgery [facility] [address] [place] [id number] Jaya Grier MD [facility] [facility] [address] [place] [address] ESOPHAGOGASTRODUODENOSCOPY Scheduled Procedures Name Priority Associated Diagnoses Date/Ti me ESOPHAGOGASTRODUODENOSCOPY Anemia, unspecified type Gastritis without bleeding, unspecified chronicity, unspecified gastritis type 07/13/2024 9:00 AM LOOM INSPECTOR COLONOSCOPY Iron deficiency anemia due to chronic blood loss documented as of this encounter Visit Diagnoses Not on filedocumented in this encounter Administered Medications Inactive Administered Medications - up to 3 most recent administrations Medication Order MAR Action Action Date Dose Rate Site lidocaine (XYLOCAINE) 20 mg/mL (2 %) injection intravenous, As needed, Starting on Thu03/01/24 at 0852, Anesthesia Intra-op, Indications: Administration of Local AnesthesiaIndications:Administratio n of Local Anesthesia Given 03/01/2024 8:52 AM CDT 40 mg propofoL (DIPRIVAN) 10 mg/mL IV intravenous, As needed, Starting on Thu03/01/24 at 0855, Anesthesia Intra-op Given 03/01/2024 9:02 AM CDT 10 mg Given 03/01/2024 8:55 AM CDT 50 mg Given 03/01/2024 8:53 AM CDT 40 mg sodium chloride 0.9% infusion 125 mL/hr, intravenous, Continuous, Starting on Thu03/01/24 at 0830, Pre-Op Restarted 03/01/2024 8:49 AM CDT New Bag 03/01/2024 8:23 AM CDT 125 mL/hr 125 mL/hr documented in this encounter 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 06/26/2024 3:05 AM LOOM INSPECTOR documented as of this encounter Care Teams Cloud Engagement Partner Relationship Specialty Start Date End Date Cherelle Corcoran MD PCP - General Family Medicine 08/30/19 Mark Queen MD Consulting Physician Infectious Diseases 01/10/20 Rudolph Welch MD [address] [facility] [address] [place] [address] Consulting Physician Infectious Diseases 12/05/22 Markie Ryan MD [address] [facility] [address] [place] [address] Consulting Physician Nephrology 12/05/22 Dulce Vega, ALIREZA [address] [place] [address] [address] [place] [address] Brake Lining Finisher Asbestos 10/07/23 05/03/24 [place] [address] [address] [facility] [address] [place] [address] Consulting Physician Nephrology 10/22/23 Jaya Grier MD [address] [facility] [address] [place] [address] Consulting Physician Gastroenterology 02/01/24 documented as of this encounter
--- OUTSIDE RECORDS SUMMARY | 2024-07-04 04:01 | XMS_ITS | Encounter Summary ---
Author Organization [facility] Healthcare Address [address] [place] [address] Care Team Providers Care Sorting Machine Attendant Name Role Phone Cherelle Corcoran MD Primary Care Pro vider Mark Queen MD Unavailable [phone] Rudolph Welch MD Unavailable [phone] Markie Ryan MD Unavailable Dulce Vega RN Unavailable [phone] Jimbo Strauss MD Unavailable [phone] Jaya Grier MD Unavailable Encounter Details Date Type Department Care Team (Late st Contact Info) Description 03/17/2024 Telephone [facility] Medical Group Orthopedics and Sports Medicine [facility] [address] [place] [address] Demetri Bacon MD [address] [place] [address] [address] [place] [address] Social History Tobacco Use Types [...] the past 12 months has th e [employer], gas, oil, or water [employer] threatened to shut off services in your [...] week 02/01/2024 How often do you attend [facility] ch or sabianism services? More than 4 times per year [...] living in a fpc (including now)? No 02/01/2024 Personal Safety Answer Date Recorded Have you ever been in or are you currently in a harmful physical or emotional relationship or is someone making you feel afraid or unsafe? Denies 03/01/2024 Comments No Sex and Gender Information Value Date Recorded Sex Assigned at Not on file Legal Sex Female 9:03 AM GUYLINE OPERATOR Gender Identity Female 02/08/2020 6:39 PM CDT Sexual Orientation Not on file documented as of this encounter Miscellaneous Notes * Telephone Encounter - Sandra Esparza MA - 03/17/2024 11:38 AM CDT Patient called and lm for her to call back Patient needs to be notified that we will not be refilling her Tramadol, we only fill scripts for pain meds if you are post op Please see pend order for PT documented in this encounter Plan of Treatment Upcoming Encounters Date Type Department Care Team (Latest Contact Info) Description 07/13/2024 9:00 AM GUYLINE OPERATOR Hospital Encounter [facility] GI Lab [address] [place] [address] Jaya Grier MD [address] [facility] [address] [place] [address] 07/13/2024 9:00 AM GUYLINE OPERATOR - 07/13/2024 9:30 AM GUYLINE OPERATOR Surgery [facility] Lab [address] [place] [address] Jaya Grier MD [address] [place] [address] DR [address] [place] [address] ESOPHAGOGASTRODUODENOSCOPY Scheduled Procedures Name Priority Associated Diagnoses Date/Ti me ESOPHAGOGASTRODUODENOSCOPY Anemia, unspecified type Gastritis without bleeding, unspecified chronicity, unspecified gastritis type 07/13/2024 9:00 AM GUYLINE OPERATOR COLONOSCOPY Iron deficiency anemia due to chronic blood loss documented as of this encounter Visit Diagnoses Not on filedocumented in this encounter 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 06/26/2024 3:05 AM GUYLINE OPERATOR documented as of this encounter Care Teams Sorting Machine Attendant Relationship Specialty Start Date End Date Cherelle Corcoran MD PCP - General Family Medicine 08/30/19 Mark Queen MD Consulting Physician Infectious Diseases 01/10/20 Rudolph Welch MD [address] [facility] [address] GA[address] [place] [address] Consulting Physician Infectious Diseases 12/05/22 Markie Ryan MD [address] [facility] [address] [place] [address] Consulting Physician Nephrology 12/05/22 Dulce Vega, RN [address] [place] [address] [address] [place] [address] Plastic Finisher 10/07/23 05/03/24 [place] [address] [facility] [address] [place] [address] Consulting Physician Nephrology 10/22/23 Jaya Grier MD [address] [facility] [address] [place] [address] Consulting Physician Gastroenterology 02/01/24 documented as of this encounter
--- OUTSIDE RECORDS SUMMARY | 2024-07-04 04:01 | XMS_ITS | Encounter Summary ---
Author Organization [facility] Healthcare Address [address] [place] [address] Care Team Providers Care Rn Transitional Care Name Role Phone Cherelle Corcoran MD Primary Care Pro vider Mark Queen MD Unavailable [phone] uRdolph Welch MD Unavailable Markie Ryan MD Unavailable [phone] Dulce Vega RN Unavailable [phone] Jimbo Strauss MD Unavailable [phone] Jaya Grier MD Unavailable Reason for Referral * Diagnostic Imaging (Routine) - Closed Specialty Diagnoses / Procedures Referred By Contac t Referred To Contact Diagnoses Neck pain Procedures XR Spine Cervical W Flexion And Extension 6 or More Views Brook Muhammad, AIR POLLUTION ANALYST [address] [address] Phone: tel: fax: [address] [phone] Referral ID Status Reason Start Date Expiration Date Visits Re quested Visits Authorized [id number] Closed 03/18/2024 04/17/2025 1 1 Reason for Visit * Diagnostic Imaging (Routine) - Closed Specialty Diagnoses / Procedures Referred By Maryse t Referred To Contact Diagnoses Neck pain Procedures XR Spine Cervical W Flexion And Extension 6 or More Views Brook Muhammad NP [address] [address] Phone: tel: fax: [facility] [address] [place] [phone] Referral ID Status Reason Start Date Expiration Date Visits Re quested Visits Authorized [id number] Closed 03/18/2024 04/17/2025 1 1 Encounter Details Date Type Department Care Team (Latest Contact Info) Description 04/06/2024 9:45 AM CDT - 04/06/2024 11:59 PM CDT Hospital Encounter [facility] Diag Imaging [address] [place] [address] Neck pain Discharge Disposition: Discharge to home [...] materials from doctor or pharmacy Often 01/20/2024 [facility] Utilities Answer Date Recorded In the past 12 months has th e [employer], gas, oil, or water [employer] threatened to shut off services in your [...] any clubs o r organizations such as adventist groups, unions, fraternal or athletic groups, or [...] living in a retirement (including now)? No 02/01/2024 Personal Safety Answer Date Recorded Have you ever been in or are you currently in a harmful physical or emotional relationship or is someone making you feel afraid or unsafe? Denies 03/01/2024 Comments No Sex and Gender Information Value Date Recorded Sex Assigned at Not on file Legal Sex Female 9:03 AM SEAL SKINNER Gender Identity Female 02/08/2020 6:39 PM CDT Sexual Orientation Not on file documented as of this encounter Medications at Time of Discharge acetaminophen 500 mg capsule Take 2 capsules (1,000 mg total) by mouth 3 (three) times a day as needed for mild pain (pain scale 1-4) atorvastatin (LIPITOR) 40 mg tablet Take 1 tablet (40 mg total) by mouth nightly 30 tablet 11 4 01/06/20 25 blood-glucose sensor (FreeStyle Madhav 3 Sensor) deviceIndications:T ype 2 diabetes mellitus with diabetic neuropathy, with long-term current use of insulin ([facility]) Use for continuous glucose monitoring. Change sensor every 14 days 6 each 3 4 docusate sodium (COLACE) 100 mg capsule Take 1 capsule (100 mg total) by mouth every 12 (twelve) hours 60 capsule 4 flash glucose scanning reader miscIndications:Typ e 2 diabetes mellitus with diabetic neuropathy, with long-term current use of insulin (HCC) Use Madhav 3 reader to scan Madhav 3 sensor 1 each 4 fluticasone propionate (FLONASE) 50 mcg/actuation nasal spray Administer 2 sprays into each nostril daily as needed for rhinitis FreeStyle Madhav 3 [facility] Use Madhav 3 reader to scan Madhav 3 sensor 4 hydrALAZINE (APRESOLINE) 25 mg tabletIndications:h ypertension Take 1 tablet (25 mg total) by mouth 2 (two) times a day 60 tablet 1 4 insulin glargine 100 unit/mL (3 mL) [...] skin daily as needed to lower back pen needle, diabetic (Easy Touch) 32 gauge [...] as needed for pain 90 tablet 4 aspirin 81 mg chewable tablet Take 1 tablet (81 mg total) by mouth daily 4 04/12/20 24 benzonatate (TESSALON) 100 mg capsuleIndications: Cough Take 1 capsule (100 mg total) by mouth 3 (three) times a day as needed for cough 42 capsule 4 04/23/20 24 benztropine (COGENTIN) 2 mg tablet Take 1 tablet (2 mg total) by mouth daily 30 tablet 4 04/18/20 24 carvediloL (COREG) 6.25 mg tabletIndications:U ncontrolled hypertension,Chroni c diastolic congestive heart failure (CMS/HCC) ([facility]) Take 1 tablet (6.25 mg total) by mouth 2 (two) times a day with meals 180 tablet 3 4 05/16/20 24 FeroSuL 325 mg (65 mg iron) tablet Take 1 tablet (325 mg total) by mouth daily with breakfast 4 04/12/20 24 flash glucose sensor (FreeStyle Madhav 2 Sensor) kitIndications:Type 2 diabetes mellitus with diabetic neuropathy, with long-term current use of insulin ([facility]) Use to continually monitor glucose, change every 14 days 6 kit 3 3 05/16/20 24 gabapentin (NEURONTIN) 100 mg capsuleIndications: Diabetic polyneuropathy associated with type 2 diabetes mellitus (CMS/HCC) ([facility]) TAKE 1 CAPSULE BY MOUTH 3 TIMES PER WEEK AFTER HEMODIALYSIS 12 capsule 2 4 06/07/20 24 NIFEdipine (NIFEdipine CC) 60 mg 24 hr tabletIndications:U ncontrolled hypertension TAKE 1 TABLET BY MOUTH DAILY 90 tablet 4 05/02/[address] (PROTONIX) 40 mg EC tabletIndications:G I Bleed Take 1 tablet (40 mg total) by mouth 2 (two) times a day 60 tablet 1 4 04/12/20 24 risperiDONE (RisperDAL) 2 mg tablet Take 1 tablet (2 mg total) by mouth nightly 30 tablet 4 05/27/20 24 documented as of this encounter Discharge Disposition Disposition Code Departure Means Destination Discharge to home or self care documented in this encounter Plan of Treatment Upcoming Encounters Date Type Department Care Team (Latest Contact Info) Description 07/13/2024 9:00 AM [facility] Hospital Encounter [facility] GI Lab [address] [place] [address] Jaya Grier MD [facility]0 [facility] [address] [address] 07/13/2024 9:00 AM SEAL SKINNER - 07/13/2024 9:30 AM SEAL SKINNER Surgery [facility] GI Lab [address] [place] [address] Jaya Grier MD [address] [facility] [address] [address] ESOPHAGOGASTRODUODENOSCOPY Scheduled Procedures Name Priority Associated Diagnoses Date/Ti me ESOPHAGOGASTRODUODENOSCOPY Anemia, unspecified type Gastritis without bleeding, unspecified chronicity, unspecified gastritis type 07/13/2024 9:00 AM SEAL SKINNER COLONOSCOPY Iron deficiency anemia due to chronic blood loss documented as of this encounter Procedures Procedure Name Priority Date/Time Associated Diagnosis Comments XR SPINE CERVICAL W FLEXION AND EXTENSION 6 OR MORE VIEWS Schedule Routine, Read Routine (OP Routine) 04/06/2024 10:08 AM CDT Neck pain documented in this encounter Results * XR Spine Cervical W Flexion And [...] D: ??04/08/2024 6:35 PM T: Report ID: [id number] Reading Location: ??[id number] Procedure Note Tahmina Feliciano MD - 04/08/2024 [...] 6:35 PM - Electronically signed by Tahmina Felciiano M.D. 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 06/26/2024 3:05 AM SEAL SKINNER documented as of this encounter Care Teams Rn Transitional Care Relationship Specialty Start Date End Date Cherelle Corcoran MD PCP - General Family Medicine 3/10/20 Mark Queen MD Consulting Physician Infectious Diseases 01/10/20 Rudolph Welch MD [address] [facility] [address] [place] [address] Consulting Physician Infectious Diseases 12/05/22 Markie Ryan MD [address] [facility] [address] [place] [address] Consulting Physician Nephrology 12/05/22 Dulce Vega, ALIREZA [address] [place] [address] [address] [place] [address] Public Transit Trolley Driver 10/07/23 05/03/24 [place] [address] [place] [address] Consulting Physician Nephrology 10/22/23 Jaya Grier MD [address] [facility] [address] [place] [address] Consulting Physician Gastroenterology 02/01/24 documented as of this encounter
--- OUTSIDE RECORDS SUMMARY | 2024-07-04 04:01 | XMS_ITS | Encounter Summary ---
Author Organization [facility] Healthcare Address [address] [place] [address] Care Team Providers Care Textile Colorist Dyer Name Role Phone Cherelle Corcoran MD Primary Care Pro vider Mark Queen MD Unavailable [phone] Rudolph Welch MD Unavailable Markie Rayn MD Unavailable [phone] Dulce Vega RN Unavailable Jimbo Strauss MD Unavailable [phone] Jaya Grier MD Unavailable Reason for Referral * Consultation (Routine) - Closed Specialty Diagnoses / Procedures Referred By Contac t Referred To Contact Physical Therapy Diagnoses Left shoulder pain, unspecified chronicity Demetri Bacon MD [facility] [place] [address] Phone: tel: fax: External Order Referral ID Status Reason Start Date Expiration Date V isits Requested Visits Authorized [id number] Closed Evaluate and Treat 03/11/2024 04/10/2025 24 24 Question Answer PTRFR PT Evaluate and Treat Therapy options discussed with patient? Yes Location provided for therapy services is: Patient requested/Patient preferred Please select the performing region: External Order [171] # of visits: 24 Comments Left shoulder pain Eval and treat Encounter Details Date Type Department Care Team (Late st Contact Info) Description 03/08/2024 Telephone [facility] Medical Group Orthopedics and Sports Medicine [address] [place] [address] [address] [place] [address] Demetri Bacon MD [address] [place] [address] [address] [place] [address] Social History Tobacco Use Types Packs/Day Years [...] materials from doctor or pharmacy Often 01/20/2024 [facility] Utilities Answer Date Recorded In the past 12 months has e [employer], gas, oil, or water [employer] threatened to shut off services in your [...] often do you attend chur ch or scientologist services? More than 4 times per year 02/01/2024 Do you belong to any clubs o r organizations such as rastafari groups, unions, fraternal or athletic groups, or [...] any time in the past 12 m [facility], were you homeless or living in a mcfp (including now)? No 02/01/2024 Personal Safety Answer Date Recorded Have you ever been in or are you currently in a harmful physical or emotional relationship or is someone making you feel afraid or unsafe? Denies 03/01/2024 Comments No Sex and Gender Information Value Date Recorded Sex Assigned at Not on file Legal Sex Female 9:03 AM SKIVER WELT END Gender Identity Female 02/08/2020 6:39 PM CDT Sexual Orientation Not on file documented as of this encounter Miscellaneous Notes * Telephone Encounter - Sandra Esparza MA - 03/08/2024 3:31 PM CDT Patient is requesting pt orders Please see pend order documented in this encounter Plan of Treatment Upcoming Encounters Date Type Department Care Team (Latest Contact Info) Description 07/13/2024 9:00 AM SKIVER WELT END Hospital Encounter [facility] GI Lab [address] [place] [address] Jaya Grier MD [address] [place] [address] [address] [place] [address] 07/13/2024 9:00 AM SKIVER WELT END - 07/13/2024 9:30 AM SKIVER WELT END Surgery [facility] GI Lab [address] [place] [address] Jaya Grier MD [facility] [facility] [address] [place] [address] ESOPHAGOGASTRODUODENOSCOPY Scheduled Procedures Name Priority Associated Diagnoses Date/Ti mo ESOPHAGOGASTRODUODENOSCOPY Anemia, unspecified type Gastritis without bleeding, unspecified chronicity, unspecified gastritis type 07/13/2024 9:00 AM SKIVER WELT END COLONOSCOPY Iron deficiency anemia due to chronic blood loss Scheduled Referrals Name Type Priority Associated Diagnoses Orde r Schedule Ambulatory referral order to Physical Therapy - Outpatient Referral Routine Left shoulder pain, unspecified chronicity Expected: 03/22/2024 (Approximate), Expires: 03/08/2025 documented as of this encounter Visit Diagnoses Diagnosis Left shoulder pain, unspecified chronicity- Primary Anemia, unspecified type Gastritis without bleeding, unspecified chronicity, unspecified gastritis type documented in this encounter 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 06/26/2024 3:05 AM SKIVER WELT END documented as of this encounter Care Teams Textile Colorist Dyer Relationship Specialty Start Date End Date Cherelle Corcoran MD PCP - General Family Medicine 08/30/19 Mark Queen MD Consulting Physician Infectious Diseases 01/10/20 Rudolph Welch MD [address] [facility] [address] [place] [address] Consulting Physician Infectious Diseases 12/05/22 Markie Ryan MD [address] [facility] [address] [place] [address] Consulting Physician Nephrology 12/05/22 Dulce Vega RN [address] [place] [address] [address] [place] [address] Single Needle Tufting Machine Operator 10/07/23 05/03/24 [place] [address] [address] [place] [address] Consulting Physician Nephrology 10/22/23 Jaya Grier MD [address] [facility] [address] [place] [address] Consulting Physician Gastroenterology 02/01/24 documented as of this encounter
--- OUTSIDE RECORDS SUMMARY | 2024-07-04 04:01 | XMS_ITS | Encounter Summary ---
Author Organization [facility] Healthcare Address [address] [place] [address] Care Team Providers Care Swimmer Name Role Phone Cherelle Corcoran MD Primary Care Pro vider Mark Queen MD Unavailable [phone] Rudolph Welch MD Unavailable Markie Ryan MD Unavailable Dulce Vega RN Unavailable [phone] Jimbo Strauss MD Unavailable [phone] Jaya Grier MD Unavailable Reason for Visit * Reason Onset Date Comments No Show 04/22/2024 Encounter Details Date Type Department Care Team (Late st Contact Info) Description 04/22/2024 Documentation [facility] Hand & Shoulder [address] [address] Cesar Angeles PT No Show Social History Tobacco Use Types Packs/Day Years [...] materials from doctor or pharmacy Often 01/20/2024 [facility] Utilities Answer Date Recorded In the past 12 months has th e [employer], [employer], oil, or water [employer] threatened to shut off services in your [...] any clubs o r organizations such as orthodoxy groups, unions, fraternal or athletic groups, or [...] any time in the past 12 m [facility], were you homeless or living in [...] on file Legal Sex Female 9:03 AM ROOFING TILE SORTER Gender Identity Female 02/08/2020 6:39 PM CDT Sexual Orientation Not on file documented as of this encounter Progress Notes * Cesar Angeles, PT - 04/22/2024 7:55 AM CDT Pt. Did not show for appointment. Pt. Was called, but there was no answer. documented in this encounter Plan of Treatment Upcoming Encounters Date Type Department Care Team (Latest Contact Info) Description 07/13/2024 9:00 AM ROOFING TILE SORTER Hospital Encounter [facility] GI Lab [address] [place] [address] Jaya Grier MD [address] [facility] [address] [place] [address] 07/13/2024 9:00 AM ROOFING TILE SORTER - 07/13/2024 9:30 AM ROOFING TILE SORTER Surgery [facility] GI Lab [address] [place] [address] Jaya Grier MD [address] [facility] [address] [place] [address] ESOPHAGOGASTRODUODENOSCOPY Scheduled Procedures Name Priority Associated Diagnoses Date/Ti me ESOPHAGOGASTRODUODENOSCOPY Anemia, unspecified type Gastritis without bleeding, unspecified chronicity, unspecified gastritis type 07/13/2024 9:00 AM ROOFING TILE SORTER COLONOSCOPY Iron deficiency anemia due to chronic blood loss documented as of this encounter Visit Diagnoses Not on filedocumented in this encounter 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 06/26/2024 3:05 AM ROOFING TILE SORTER documented as of this encounter Care Teams Swimmer Relationship Specialty Start Date End Date Cherelle Corcoran MD PCP - General Family Medicine 08/30/19 Mark Queen MD Consulting Physician Infectious Diseases 01/10/20 Rudolph Welch MD [address] [facility] [address] [place] [address] Consulting Physician Infectious Diseases 12/05/22 Markie Ryan MD [address] [facility] [address] [place] [address] Consulting Physician Nephrology 12/05/22 Dulce Vega, ALIREZA [address] [place] [address] [address] [place] [address] Juice Standardizer 10/07/23 05/03/24 [place] [address] [place] [address] Consulting Physician Nephrology 10/22/23 Jaya Grier MD [address] [facility] [address] [place] [address] Consulting Physician Gastroenterology 02/01/24 documented as of this encounter
--- OUTSIDE RECORDS SUMMARY | 2024-07-04 04:01 | XMS_ITS | Encounter Summary ---
Author Organization [facility] Address [address] [place] [address] Care Team Providers Care Stone Breaker Name Role Phone Cherelle Corcoran MD Primary Care Pro vider Mark Queen MD Unavailable [phone] Rudolph Welch MD Unavailable Markie Ryan MD Unavailable [phone] Dulce Vega RN Unavailable Jimbo Strauss MD Unavailable [phone] Jaya Grier MD Unavailable Reason for Visit * Auth/Cert (Routine) Specialty Diagnoses / Procedures Referred By Contac t Referred To Contact Diagnoses Screening for colon cancer Screening for colon cancer [Z12.11] Procedures DC COLONOSCOPY,DIAGNOSTIC COLONOSCOPY Referral ID Status Reason Start Date Expiration Date Visits Re quested Visits Authorized [id number] 1 1 Encounter Details Date Type Department Care Team (Late st Contact Info) Description 03/01/2024 7:15 AM CDT - 03/01/2024 7:30 AM CDT Surgery [facility] GI Lab [address] [place] [address] Jaya Grier MD [address] [address] COLON BIOPSY Surgery Details Date/Time Status Location OR Service Patient Class Case Class Case Type Trauma Case? 03/01/2024 7:15 AM Posted [facility] ENDOSCOPY GI 06 Gastroenterology Outpatient Elective Panel 1 Procedure LRB Anes Op Region Wound Class Comments COLON BIOPSY N/A Monitor Anesthes ia Care Colon Class II - Clean Contaminated Surgeon Surgeon Role Service Panel Jaya Grier MD Primary Gastroenterology 1 documented in this encounter Social History Tobacco [...] materials from doctor or pharmacy Often 01/20/2024 [facility] Utilities Answer Date Recorded In the past 12 months has e mobifriends, gas, oil, or water [employer] threatened to shut off services in your [...] often do you attend chur ch or mu-ism services? More than 4 times per year 02/01/2024 Do you belong to any clubs o r organizations such as orthodox groups, unions, fraternal or athletic groups, or [...] time in the past 12 [address] [place], were you homeless or living in a detention (including now)? No 02/01/2024 Personal Safety Answer Date Recorded Have you ever been in or are you currently in a harmful physical or emotional relationship or is someone making you feel afraid or unsafe? Denies 03/01/2024 Comments No Sex and Gender Information Value Date Recorded Sex Assigned at Not on file Legal Sex Female 9:03 AM [employer] Gender Identity Female 02/08/2020 6:39 PM CDT Sexual Orientation Not on file documented as of this encounter Last Filed Vital Signs Vital Sign Reading Time Taken Comments Blood Pressure 147/62 03/01/2024 7:05 AM CDT Pulse 76 03/01/2024 7:05 AM CDT Temperature 36.2 ??C (97.1 ??F) 03/01/2024 7:05 AM CD T Respiratory Rate 16 03/01/2024 7:05 AM CDT Oxygen Saturation 98% 03/01/2024 7:05 AM CDT Inhaled Oxygen Concentration - - Weight - - Height - - Body Mass Index - - documented in this encounter Medications at Time of Discharge acetaminophen 500 mg capsule Take 2 capsules (1,000 mg total) by mouth 3 (three) times a day as needed for mild pain (pain scale 1-4) atorvastatin (LIPITOR) 40 mg tablet Take 1 tablet (40 mg total) by mouth nightly 30 tablet 11 01/06/2024 blood-glucose sensor (FreeStyle Madhav 3 Sensor) deviceIndications: Type 2 diabetes mellitus with diabetic neuropathy, with long-term current use of insulin ([facility]) Use for continuous glucose monitoring. Change sensor every 14 days 6 each 3 06/30/2023 docusate sodium (COLACE) 100 mg capsule Take 1 capsule (100 mg total) by mouth every 12 (twelve) hours 60 capsule 12/03/2023 flash glucose scanning reader miscIndications:Ty pe 2 diabetes mellitus with diabetic neuropathy, with long-term current use of insulin (HCC) Use Madhav 3 reader to scan Madhav 3 sensor 1 each 06/30/2023 fluticasone propionate (FLONASE) 50 mcg/actuation nasal spray Administer 2 sprays into each nostril daily as needed for rhinitis FreeStyle Madhav 3 [place] misc Use Madhav 3 reader to scan Madhav 3 sensor 09/25/2023 hydrALAZINE (APRESOLINE) 25 mg tabletIndications: hypertension Take 1 tablet (25 mg total) by mouth 2 (two) times a day 60 tablet 1 02/01/2024 insulin glargine 100 unit/mL (3 mL) pen [...] diabetic (Easy Touch) 32 gauge x 5/32 needleIndications: Type 2 diabetes mellitus with diabetic neuropathy, with long-term current use of insulin (HCC) USE DIRECTED FOUR TIMES DAILY 100 each 3 12/02/2023 polyethylene glycol (MIRALAX) 17 gram/dose bulk powder Take 17 g by mouth daily as needed (Constipation) 595 g 10/22/2023 sucralfate (CARAFATE) 1 gram tabletIndications: Gastritis, presence of bleeding unspecified, unspecified chronicity, unspecified gastritis type Take 1 tablet (1 g total) by mouth 4 (four) times a day 120 tablet 1 02/09/2024 5 sucroferric oxyhydroxide 500 mg tablet,chewable Take 0.5 tablets by mouth 3 (three) times a day aspirin 81 mg chewable tablet Take 1 tablet (81 mg total) by mouth daily 12/28/2023 4 benzonatate (TESSALON) 100 mg capsuleIndications :Cough Take 1 capsule (100 mg total) by mouth 3 (three) times a day as needed for cough 42 capsule 02/09/2024 4 benztropine (COGENTIN) 2 mg tablet Take 1 tablet (2 mg total) by mouth daily 30 tablet 02/01/2024 4 calcium acetate,phosphat bind, (PHOSLO) 667 mg capsule TAKE 1 CAPSULE(667 MG) BY MOUTH THREE TIMES DAILY WITH MEALS 270 capsule 10/29/2023 4 carvediloL (COREG) 6.25 mg tabletIndications: Uncontrolled hypertension,Chron ic diastolic congestive heart failure (CMS/HCC) ([facility]) Take 1 tablet (6.25 mg total) by mouth 2 (two) times a day with meals 180 tablet 3 02/11/2024 4 FeroSuL 325 mg (65 mg iron) tablet Take 1 tablet (325 mg total) by mouth daily with breakfast 01/03/2024 4 flash glucose sensor (FreeStyle Madhav 2 Sensor) kitIndications:Typ e 2 diabetes mellitus with diabetic neuropathy, with long-term current use of insulin ([facility]) Use to continually monitor glucose, change every 14 days 6 kit 3 03/24/2023 4 NIFEdipine (NIFEdipine CC) 60 mg 24 hr tabletIndications: Uncontrolled hypertension TAKE 1 TABLET BY MOUTH DAILY 90 tablet 01/11/[address] (PROTONIX) 40 mg EC tabletIndications: GI Bleed Take 1 tablet (40 mg total) by mouth 2 (two) times a day 60 tablet 1 02/01/2024 4 risperiDONE (RisperDAL) 2 mg tablet Take 1 tablet (2 mg total) by mouth nightly 30 tablet 02/01/2024 4 traMADoL (ULTRAM) 25 mg tabletIndications: Arthropathy of left shoulder Take 1 tablet (25 mg total) by mouth every 8 (eight) hours as needed for pain 90 tablet 01/11/2024 4 documented as of this encounter Discharge Disposition Disposition Code Departure Means Destination Comment s Discharge to home or self care Wheelchair documented in this encounter H&P Notes * Jaya Grier MD - 03/01/2024 7:06 AM CDT Gastroenterology History and Physical SUBJECTIVE: Patient is a 73 y.o. female for Colonoscopy INDICATIONS: History of colon polyps Past Medical History: Diagnosis Date Anemia Arthritis CHF (congestive heart failure) (CMS/HCC) ([facility]) CKD (chronic kidney disease) stage V requiring chronic dialysis ([facility]) Dementia ([facility]) Depression Diabetic neuropathy ([facility]) End stage chronic kidney disease (CMS/HCC) ([facility]) hemodialysis T Th Sat GERD (gastroesophageal reflux disease) HL (hearing loss) Hyperlipidemia Hypertension Movement disorder Osteomyelitis ([facility]) Rotator cuff tear, left Schizophrenia (HCC) Type 2 diabetes mellitus (HCC) Medications Prior to Admission Medication Sig Dispense Refill Last Dose aspirin 81 mg chewable tablet Take 1 tablet (81 mg total) by mouth daily 02/24/2024 atorvastatin (LIPITOR) 40 mg tablet Take 1 tablet (40 mg total) by mouth nightly 30 tablet 11 02/24/2024 benztropine (COGENTIN) 2 mg tablet Take 1 tablet (2 mg total) by mouth daily 30 tablet 0 02/24/2024 carvediloL (COREG) 6.25 mg tablet Take 1 tablet (6.25 mg total) by mouth 2 (two) times a day with meals 180 tablet 3 02/24/2024 FeroSuL 325 mg (65 mg iron) tablet Take 1 tablet (325 mg total) by mouth daily with breakfast 02/24/2024 gabapentin (NEURONTIN) 100 mg capsule Take 100 mg 3 times per week after hemodialysis. 12 capsule 1Past Week insulin glargine 100 unit/mL (3 mL) pen for injection Inject 18 Units under the skin nightly 02/24/2024 insulin lispro (HumaLOG, ADMELOG) 100 unit/mL vial for injection Inject 4 Units under the skin 3 (three) times a day before meals Gets 4 units at baseline then 1 unit for every 50 over 150 02/24/[address] (PROTONIX) 40 mg EC tablet Take 1 tablet (40 mg total) by mouth 2 (two) times a day60 tablet 1 02/24/2024 risperiDONE (RisperDAL) 2 mg tablet Take 1 tablet (2 mg total) by mouth nightly 30 tablet 0 02/24/2024 sucralfate (CARAFATE) 1 gram tablet Take 1 tablet (1 g total) by mouth 4 (four) times a day (Patient taking differently: Take 1 tablet (1 g total) by mouth 4 (four) times a day Does not take consistently) 120 tablet 1 02/24/2024 acetaminophen 500 mg capsule Take 2 capsules (1,000 mg total) by mouth 3 (three) times a day as needed for mild pain (pain scale 1-4) Unknown benzonatate (TESSALON) 100 mg capsule Take 1 capsule (100 mg total) by mouth 3 (three) times a day as needed for cough 42 capsule 0 Unknown blood-glucose sensor (FreeStyle Madhav 3 Sensor) device Use for continuous glucose monitoring. Change sensor every 14 days 6 each 3 calcium acetate,phosphat bind, (PHOSLO) 667 mg capsule TAKE 1 CAPSULE(667 MG) BY MOUTH THREE TIMES DAILY WITH MEALS (Patient not taking: Reported on 02/24/2024) 270 capsule 0 Not Taking docusate sodium (COLACE) 100 mg capsule Take 1 capsule (100 mg total) by mouth every 12 (twelve) hours (Patient taking differently: Take 1 capsule (100 mg total) by mouth 2 (two) times a day as needed) 60 capsule 0 flash glucose scanning reader [facility] Use Madhav 3 reader to scan Madhav 3 sensor 1 each 0 flash glucose sensor (FreeStyle Madhav 2 Sensor) kit Use to continually monitor glucose, change every 14 days 6 kit 3 fluticasone propionate (FLONASE) 50 mcg/actuation nasal spray Administer 2 sprays into each nostrildaily as needed for rhinitis Unknown FreeStyle Madhav 3 [place] [facility] Use Madhav 3 reader to scan Madhav 3 sensor hydrALAZINE (APRESOLINE) 25 mg tablet Take 1 tablet (25 mg total) by mouth 2 (two) times a day 60 tablet 1 lidocaine (ASPERCREME) 4 % adhesive patch,medicated Place 1 patch on the skin daily as needed to lower back NIFEdipine (NIFEdipine CC) 60 mg 24 hr tablet TAKE 1 TABLET BY MOUTH DAILY 90 tablet 0 pen needle, diabetic (Easy Touch) 32 gauge x 5/32 needle USE DIRECTED FOUR TIMES DAILY 100 each3 polyethylene glycol (MIRALAX) 17 gram/dose bulk powder Take 17 g by mouth daily as needed (Constipation) 595 g 0 Unknown sucroferric oxyhydroxide 500 mg tablet,chewable Take 0.5 tablets by mouth 3 (three) times a day traMADoL (ULTRAM) 25 mg tablet Take 1 tablet (25 mg total) by mouth every 8 (eight) hours as neededfor pain (Patient not taking: Reported on 02/09/2024) 90 tablet 0 No Known Allergies Review of Systems: Respiratory: negative Cardiovascular: negative Gastrointestinal: negative OBJECTIVE: Vitals: 03/01/24 0705 BP: 147/62 Pulse: 76 Resp: 16 Temp: 36.2 ??C (97.1 ??F) SpO2: 98% General Appearance: Well-developed, no distress Lungs: Clear to auscultation bilaterally, respirations unlabored Cardiovascular: Regular rate and rhythm, S1 and S2 normal Abdomen: Soft, non-tender, bowel sounds active all four quadrants, no masses, no organomegaly, non-distended Neurologic: Alert & oriented x 3 PLAN: Colonoscopy The risks (risks of bleeding, infection, perforation requiring surgery, missed polyps/cancer, dental injury, aspiration pneumonia, anesthesia complications such as drug reaction and cardiopulmonary complications including rare chance of ), benefits, and alternatives of the planned procedure were explained to the patient who understands and consents to having procedure done. documented in this encounter Procedure Notes * Jaya Grier MD - 03/01/2024 8:49 AM CDTAssociated Order(s): COLONOSCOPY [facility] GI ENDOSCOPY Patient Name: Sixto Chakraborty Procedure Date: 03/01/2024 8:49 AM Date of : 1950 Admit Type: Outpatient Age: 73 Gender: Female Attending MD: Jaya Grier M.D. Room: [facility] ENDOSCOPY ROOM 06 Note Status: Finalized Procedure: Colonoscopy Indications: Screening for colorectal malignant neoplasm Referring MD: Providers: Jaya Grier M.D. Medicines: Monitored Anesthesia Care Complications: No immediate complications. Estimated Blood Loss: Estimated blood loss: none. Procedure: Pre-Anesthesia Assessment: - Prior to the procedure, a History and Physical was performed, and patient medications and allergies were reviewed. The risks and benefits of the procedure and the sedation options and risks were discussed with the patient. All questions were answered and informed consent was obtained. Patient identification and proposed procedure were verified. After reviewing the risks and benefits, the patient was deemed in satisfactory condition to undergo the procedure. The anesthesia plan was to use monitored anesthesia care (MAC). Immediately prior to administration of medications, the patient was re-assessed for adequacy to receive sedatives. The heart rate, respiratory rate, oxygen saturations, blood pressure, adequacy of pulmonary ventilation, and response to care were monitored throughout the procedure. The physical status of the patient was re-assessed after the procedure. The benefits, risks and alternatives of the procedure and sedation were discussed and informed consent was obtained. All questions were answered. Please refer to the signed informed consent document in the medical record. The scope was passed under direct vision. The PCF-XA810S colonoscope was introduced through the anus and advanced to the cecum, identified by appendiceal orifice and ileocecal valve. The colonoscopy was performed without difficulty. The patient tolerated the procedure well. The quality of the bowel preparation was good. Scope withdrawal time was 10 minutes. Prep was administered in a split dose. Findings: The perianal and digital rectal examinations were normal. A diminutive polyp was found in the cecum. The polyp was removed with a cold [...] of potential delayed complications were discussed with the patient. Return to normal activities tomorrow. Written discharge instructions were provided to the patient. - High fiber diet. - Continue present medications. - Await pathology results. - Repeat colonoscopy in 3 years for surveillance. Jaya Grier M.D. Jaya Grier M.D. 03/01/2024 9:09:38 AM . Number of Addenda: 0 Note Initiated On: 03/01/2024 8:49 AM Recognized by the [employer] for promoting quality in endoscopy documented in this encounter Miscellaneous Notes * Perioperative Nursing Note - Rosa Medina RN - 03/01/2024 8:00 AM CDT 75% of tap water enema administered. Pt expressed clear liquid stool could not hold liquid in. Ambulated to commode, no stool came out. * Perioperative Nursing Note - Rosa Medina RN - 03/01/2024 7:34 AM CDT Pt arrived via wheelchair with daughter Honey BANKS, states she did not finish prep, only 1/2 of Miralax and ate white chicken chilli and still notes red tomatoes in stool which is yellow and green colored liquid. Dr. Grier notified and ordered two tap water enemas. 1/2 bag of Enema administered with patient left lateral, pt unable to hold water in, water leaked out, with flakes of green. Pt assisted to commode. * Pre-Procedure Instructions - Bob Ling RN - 02/24/2024 11:19 AM CDT ~No smoking of any kind or drinking for 12 hours prior to procedure. ~You can shower or bathe the morning of the procedure, but don't apply any powder or lotion. Deoderant is acceptable. ~No wigs/ dentures or partials / No contacts or jewelry of any kind ~You may wear glasses or hearing aides if you have them. ~Follow the doctor's instructions regarding when to stop vitamins or supplements, phentermine if applicable, and blood thinning medications including NSAIDS. ~Follow the instructions for your prep if having a colonoscopy ~Make sure you have a regional company hazmat tanker driver to bring you home. ~The morning of the procedure, take only the following medications: none Patient having dialysis after the procedure, will not be taking bp meds due to this. ~If you take insulin, please follow the instructions given on what to take the day before and day of. - taking 80% of lantus dose the night before - 14 units total ~The day before the procedure, our medical typist will be contacting you to confirm you are still coming for your appointment and that you have your prep instructions and will be starting them soon. This is to decrease cancellations as much as possible. ~Please arrive at [facility], Medical Office Building 1, Outpatient surgery entrance at (0615), for your procedure start time of (0715). ~You will be here a total of approximately 2-2.5 hours. documented in this encounter Plan of Treatment Upcoming Encounters Date Type Department Care Team (Latest Contact Info) Description 07/13/2024 9:00 AM [facility] Hospital Encounter [facility] GI Lab [address] [place] [id number] Jaya Grier MD [facility] [address] 07/13/2024 9:00 AM [employer] - 07/13/2024 9:30 AM [facility] Surgery [facility] GI Lab [address] [place] [id number] Jaya Grier MD [address] [place] [address] DR GAINES [address] [place] [id number] ESOPHAGOGASTRODUODENOSCOPY Scheduled Procedures Name Priority Associated Diagnoses Date/Ti me ESOPHAGOGASTRODUODENOSCOPY Anemia, unspecified type Gastritis without bleeding, unspecified chronicity, unspecified gastritis type 07/13/2024 9:00 AM [employer] COLONOSCOPY Iron deficiency anemia due to chronic blood loss documented as of this encounter Procedures Procedure Name Priority Date/Time Associated Diagnosis Comments SURGICAL PATHOLOGY Routine 03/01/2024 8: 58 AM CDT Screening for colon cancer COLONOSCOPY 03/01/2024 8:49 AM CDT COLON BIOPSY 03/01/2024 8:46 AM CDT Screening for colon cancer POC BLOOD GAS AND CHEMISTRIES, VENOUS Routine 03/01/2024 8:17 AM CDT documented in this encounter Results * Surgical pathology (03/01/2024 8:58 AM CDT) Tissue (Colon, Biopsy) 03/01/2024 8:58 AM CDT Comment:Cold biopsy Tissue (Colon, Biopsy) 03/01/2024 9:02 AM CDT Comment:Cold biopsy Tissue (Colon, Biopsy) 03/01/2024 9:04 AM CDT Comment:Cold biopsy Narrative PATHOLOGY [facility] - 03/02/2024 3:[address] [facility] Department of Pathology [address] [place] [address] ?? Note to Patients: ??This report may contain a detailed description of human tissue sent by a health care provider to the laboratory for pathologic evaluation. ??The content of this report is essential for diagnosis and may provide important critical findings. ??This information may be unfamiliar to patients to review without a medical professional present. ?? It is advised that the patient review this report in the presence of a health care provider who can answer questions and explain the details. Final Report Patient Name: SIXTO CHAKRABORTY : ??1950 (Age: 73) Gender: ??F Address: ??[address] [place], [place] [address] [facility] #: [id number] Service: Gastro Location: Patient Type: B SDS OUTPATIENT ? Taken: 03/01/2024 Received: 03/01/2024 Accessioned: 03/01/2024 Reported: 03/02/2024 Physician(s): Cinthia Jarvis M.D. Diagnosis: A. ??Cecum polyp biopsy: ? - Polypoid fragment of colonic mucosa with prolapse type changes ? - Negative for dysplasia ?? B. ??Transverse colon polyp biopsy: ? - Tubular adenoma ?? C. ??Descending colon polyp biopsy: ? - Tubular adenoma Kenzie Baltazar MD Report Electronically Reviewed and Signed Out By ??Kenzie Baltazar MD 03/02/2024 15:24:11 Specimen(s) Received: A: Cecum polyp biopsy B: Transverse colon polyp biopsy C: Descending colon polyp biopsy Microscopic Description: Unless gross-only is specified, the final diagnosis for each specimen is based on a microscopic examination of each tissue sample. Clinical History: The patient is a 73-year-old woman presenting for colon cancer screening. ??Operative procedure: Colonoscopy with biopsy. Gross Description Received in three formalin jars labeled with the patient's identifiers. A. ??Labeled cecum polyp biopsy and consists of two cowan-pink tissue fragments each measuring 0.3 cm. ??Entirely submitted. ?? Labeled A1. Jar 0. B. ??Labeled transverse colon polyp biopsy and consists of two cowan tissue fragments measuring 0.2 cm and 0.4 cm. ??Entirely submitted. ?? Labeled B1. Jar 0. C. ??Labeled descending colon polyp biopsy and consists of a 0.2 cm cowan tissue fragment, which is entirely submitted. ?? Labeled C1. Jar 0. ?? jjmhb/03/01/2024 11:29 CAMILA Johnson PA (ASCP) Microscopic slide review and interpretation for this case was performed at [facility], Department of Surgical Pathology, [address] [facility] [place], [place] [id number], ??[facility], [place] ??[address] ?? CLIA # [id number] us Jaya Grier MD LAB PATHOLOGY ORDERABLES Final R esult PATHOLOGY [facility] * Colonoscopy (03/01/2024 8:49 AM CDT) Anatomical Region Laterality Modality Other Narrative Procedure Note Jaya Grier MD - 03/01/2024 8:49 AM CDT [facility] GI ENDOSCOPY Patient Name: Sixto Chakraborty Procedure Date: 03/01/2024 8:49 AM Date of : 1950 Admit Type: Outpatient Age: 73 Gender: Female Attending MD: Jaya Grier M.D. Room: [facility] ENDOSCOPY ROOM 06 Note Status: Finalized Procedure: [...] The scope was passed under direct vision.The PCF-[id number] colonoscope was introduced through theanus and advanced [...] On: 03/01/2024 8:49 AM Recognized by the [employer] for promoting quality in endoscopy Jaya Grier MD ENDOSCOPY PROCEDURES Final Resul t * POC Blood Gas and Chemistries, Venous - (03/01/2024 8:17 AM CDT) pH,chris POC 7.37 7.32 - 7.43 pCO2, chris POC 49 40 - 50 mmHg [facility] pO2,chris POC 46 mmHg [facility] Comment: Interpretive Data No reference range established. Current interpretive data was last revised 2020. HCO3, chris (Calc) POC 28 20 - 30 mmol/L [facility] Base excess, chris POC 2 mmol/L [facility] Comment: Interpretive Data No reference range established. Current interpretive data was last revised 2020. Hemoglobin, chris POC 13.3 11.9 - 15.5 g/dL [facility] Hematocrit, chris POC 39.0 35.6 - 45.5 % [facility] Sodium, chris POC 143 135 - 145 mmol/L [facility] Potassium, chris POC 3.6 3.3 - 4.9 mmol/L [facility] Comment: Interpretive Data This method is not able to assess for hemolysis, which may falsely increase potassium concentrations. If further testing is needed to evaluate this result, consider in-laboratory plasma potassium. Current Interpretive Data was last revised on 2022. Glucose, chris POC 100 70 - 199 mg/dL [facility] Ionized Calcium, chris POC 5.00 4.50 - 5.10 mg/dL [facility] Blood 03/01/2024 8:17 AM CDT 03/01/2024 8:17 AM CDT Jaya Grier MD LAB POCT ORDERABLES - DEVICE Fin al Result NILSA [address] [facility] Department [place] [address] documented in this encounter Visit Diagnoses Diagnosis Screening for colon cancer- Primary Special screening for malignant neoplasms, colon Screening for colon cancer Special screening for malignant neoplasms, colon Anemia, unspecified type Gastritis without bleeding, unspecified chronicity, unspecified gastritis type documented in this encounter Admitting Diagnoses Diagnosis Screening for colon cancer Special screening for malignant neoplasms, colon documented in this encounter Administered Medications Inactive Administered Medications - up to 3 most recent administrations Medication Order MAR Action Action Date Dose Rate Site sodium chloride 0.9% infusion 125 mL/hr, intravenous, Continuous, Starting on Thu03/01/24 at 0830, Pre-Op Restarted 03/01/2024 8:49 AM CDT New Bag 03/01/2024 8:23 AM CDT 125 mL/hr 125 mL/hr documented in this encounter Historical Medications * This list may reflect changes made after this encounter. sucroferric oxyhydroxide 500 mg tablet,chewable Take 0.5 tablets by mouth 3 (three) times a day added in this encounter Active and Recently Administered Medications Times are shown in CDT. Continuous Medication Order 02/28/2024 02/29/2024 03/01/2024 sodium chloride 0.9% infusion 125 mL/hr, intravenous, Continuous, Starting on Thu03/01/24 at 0830, Pre-Op 0823 (New Bag - Prov ider: Rosa Medina RN)0848 (Paused - Provider: Maddie Carney CRNA - Comment: Switch to gravity)0849 (Restarted - Provider: Maddie Carney CRNA)0907 (Anesthesia Volume Adjustment - Provider: Maddie Carney CRNA)0941 (Stopped - Provider: Rosa Medina, ALIREZA) PRN Medication Order 02/28/2024 02/29/2024 03/01/2024 lidocaine (XYLOCAINE) 10 mg/mL (1 %) injection 2-10 mg 2-10 mg (0.2-1 mL), other, Once as needed, pain with IV placement, Starting on Thu03/01/24 at 0717, For 1 dose, Pre-Op, Administer volume needed to infiltrate IV site. documented in this encounter Orders Medications Ordered That Flip ht Not Have Been Administered Count Last Ordered Date First Ordered Date acetaminophen (TYLENOL) tablet 975 mg 1 03/2024 famotidine (PEPCID) tablet 20 mg 1 03/01/20 24 Lactated Ringer's (LR) infusion 1 lidocaine (XYLOCAINE) 10 mg/ mL (1 %) injection 2-10 mg 1 03/01/2024 Diet Count Last Ordered Date First Orde red Date ADULT DISCHARGE DIET 1 03/01/2024 Nursing Count Last Ordered Date First Orde red Date DISCHARGE ACTIVITY 1 03/01/2024 DISCHARGE CALL PROVIDER 5 03/01/2024 Discharge Count Last Ordered Date First Orde red Date DISCHARGE PATIENT 1 03/01/2024 documented in this encounter 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 06/26/2024 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 documented as of this encounter Care Teams Stone Breaker Relationship Specialty Start Date End Date Cherelle Corcoran MD PCP - General Family Medicine 08/30/19 Mark Queen MD Consulting Physician Infectious Diseases 01/10/20 Rudolph Welch MD [address] [place] [address] [address] [place] [address] Consulting Physician Infectious Diseases 12/05/22 Markie Ryan MD [address] [place] [address] [address] [place] [address] Consulting Physician Nephrology 12/05/22 Dulce Vega, ALIREZA [address] [place] [address] [address] [place] [address] Sulfuric Acid Plant Operator 10/07/23 05/03/24 [place] [address] [facility] [address] [place] [address] Consulting Physician Nephrology 10/22/23 Jaya Grier MD [address] [facility] [address] [place] [address] Consulting Physician Gastroenterology 02/01/24 documented as of this encounter
--- OUTSIDE RECORDS SUMMARY | 2024-07-04 04:01 | XMS_ITS | Encounter Summary ---
Author Organization [facility] Healthcare Address [address] [place] [address] Care Team Providers Care Men'S Swim Coach Name Role Phone Duane aCllahan MD Primary Care Pro vider Mark Queen MD Unavailable [phone] Rudolph Welch MD Unavailable Markie Ryan MD Unavailable [phone] Dulce Vega RN Unavailable [phone] Jimbo Strauss MD Unavailable [phone] Jaya Grier MD Unavailable Reason for Visit * Reason Comments PT Treatment * Physical Therapy (Routine) - Closed Specialty Diagnoses / Procedures Referred By Contac t Referred To Contact Physical Therapy Diagnoses Acute pain of left shoulder Perico Raphael, ANAY [address] [facility] [place] [address] Phone: tel: fax: [address] [phone] Referral ID Status Reason Start Date Expiration Date V isits Requested Visits Authorized [id number] Closed Evaluate and Treat 12/11/2023 06/21/2024 16 30 Encounter Details Date Type Department Care Team (Late st Contact Info) Description 03/01/2024 10:45 AM CDT Therapy [facility] Bldg 1 OP Physical Therapy [address] [address] [place], Vivien, HIGH SCHOOL COACH Left shoulder pain, unspecified chronicity (Primary Dx) [...] materials from doctor or pharmacy Often 01/20/2024 [facility] Utilities Answer Date Recorded In the past 12 months has th e meevl, gas, oil, or water UNI5 threatened to shut off services in your [...] How often do you attend chur or caodaism services? 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 Left shoulder pain, unspecified chronicity M25.512 DUANE CALLAHAN PT Diagnosis/Impairment List: L shoulder degerneration Precautions: See PMH Relevant Comorbidities: DM, AKD Short-Term Goals: to be met by 02/21/24 Patient will be instructed in HEP Patient will improve on AROM 5-10 deg flexion and ADB Patient will report 20% less L shoulder pain with ADLs Long-Term Goals: to be met by 03/22/24 Patient will be independent in HEP (new and revised). Patient will report 50% less pain at the L shoulder Patient will reach overhead for dressing and kitchen activity Patient Goal: Reduce L shoulder pain PT Eval Date: 01/26/24 Orders : 03/22/24 INITIAL CERTIFICATION DATES: From 01/26/24 to 03/22/2024 (8 weeks) Date Date Date Date Date Date Date 01/26/24 02/09/24 02/11/24 02/16/24 02/23/24 02/25/24 03/01/24 Visit Number 1 2 3 4 5 6 7 ADDITIONAL HEP SHEETS ISSUED NuStep Arms LV 3 x 5 mins L3 x 5 min A - 10 L3 x 5 min A-10 L-4, A=8, 5 min L-4, A=9, 5 min LV 4 x 5 mins Pulleys Flexion 2' 2' 2' 2' 3 min 2 min 2 mins Pulleys ABD 2' 2' 2 NT 3 min 2 mins Supine wand flexion 15 15' 10x 10x 10 x 10 x 15 x Supine wand ER / IR 15 15' 2 x 10 x20 15 x 15 x 15x SCap squeezes 15 20' 2 x 10 2 x 10 10 x 2 10 x 2 15x SL ER - LEFT 10 2 x 10 x10 Seated Shoulder Flexion with cane 15x 2 x 10 x10 10 x 10 x 10x Wall Slides-Flexion 5x L shoulder PROM 10' 10' declined Declined Gentle 5 min Gentle 5 min 10 mins gentle Progress Note/Re-Cert * Vivien Cantor PTA - 03/01/2024 10:45 AM CDT Images from the original note were not included. Physical Therapy Visit/Daily Note 03/01/2024 Barbara Chakraborty 1950 ICD-10-CM 1. Left shoulder pain, unspecified chronicity M25.512 DUANE CALLAHAN Coat Operator Services Utilized: NO Patient is identified by name and date of on this visit. Subjective: Pt reports her shoulder has been doing a little bit better, she has been forcing it to. Pt is reporting continued difficulty with constant shoulder pain. Pain today is 8/10. Changes since last visit include: pt declines. Objective: Objective Measurement/Observation: Pt continues to be limited in shoulder mobility in all directions, improved mobility obtained with increased cues to relax. Pt experienced an improvement in pain levels following PROM. Pt required encouragement to achieve increased range during all AAROM exercises. Sucesfully progressed with wall slides to promote shoulder flexion and she demonstrated good tolerance- pt exclaimed I feel better following. Specific exercises and treatment interventions are outlined on exercise worksheet document. Treatment Performed on This Visit: Manual Therapy (body part and techniques): L Shoulder PROM-gentle Therapeutic Procedure/Exercise:L shoulder mobility Modalities:nt HEP given:nt Patient education:cues to relax with PROM to allow increased mobility Assessment: The patient demonstrated a good response to today's treatment as evidenced by these objective findings: improved pain levels, rated it 5/10 at close. The patient is making expected progress toward STG # 1-3 and LTG # 1-3 as evidenced by changes in shoulder pain and mobility. The patient continues to demonstrate deficits with shoulder mobility and pain. Plan: Patient would benefit from the following modification on next visit: continue to progress within the POC as pt tolerates. Recommend continued therapy to focus on improved mobility of L shoulder. Vivien Cantor PTA [facility] ATTENTION PHYSICIAN If you are unable [...] (Latest Contact Info) Description 07/13/2024 9:00 AM FLYER BUILDER Hospital Encounter [facility] [address] [place] [address] Jaya Grier MD [address] [place] [address] [address] GA[address] [place] [address] 07/13/2024 9:00 AM FLYER BUILDER - 07/13/2024 9:30 AM FLYER BUILDER Surgery [facility] [address] [place] [address] Jaya Grier MD [address] [place] [address] DR GA[address] [place] [address] ESOPHAGOGASTRODUODENOSCOPY Scheduled Procedures Name Priority Associated Diagnoses Date/Ti ct ESOPHAGOGASTRODUODENOSCOPY Anemia, unspecified type Gastritis without bleeding, unspecified chronicity, unspecified gastritis type 07/13/2024 9:00 AM FLYER BUILDER COLONOSCOPY Iron deficiency anemia due to chronic blood loss documented as of this encounter Visit Diagnoses Diagnosis Left shoulder pain, unspecified chronicity- Primary Anemia, unspecified type Gastritis without bleeding, unspecified chronicity, unspecified gastritis type documented in this encounter 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 06/26/2024 3:05 AM FLYER BUILDER documented as of this encounter Care Teams Men'S Swim Coach Relationship Specialty Start Date End Date Duane Callahan MD PCP - General Family Medicine 08/30/19 Mark Queen MD Consulting Physician Infectious Diseases 01/10/20 Rudolph Welch MD [address] [facility] [address] [place] [address] Consulting Physician Infectious Diseases 12/05/22 Markie Ryan MD [address] [facility] [address] [place] [address] Consulting Physician Nephrology 12/05/22 Dulce Vega, ALIREZA [address] [place] [address] [address] [place] [address] Ceramics Test Engineer 10/07/23 05/03/24 [place] [id number] [facility] [address] [place] [address] Consulting Physician Nephrology 10/22/23 Jaya Grier MD [address] [facility] [address] [place] [address] Consulting Physician Gastroenterology 02/01/24 documented as of this encounter
--- OUTSIDE RECORDS SUMMARY | 2024-07-04 04:01 | XMS_ITS | Encounter Summary ---
Author Organization [facility] Healthcare Address [address] [place] [address] Care Team Providers Care Youth Associate Name Role Phone Cherelle Corcoran MD Primary Care Pro vider Mark Queen MD Unavailable [phone] Rudolph Welch MD Unavailable Markie Ryan MD Unavailable [phone] Dulce Vega RN Unavailable Jimbo Strauss MD Unavailable [phone] Jaya Grire MD Unavailable Reason for Visit * Reason Comments PT Initial Eval * Physical Therapy (Routine) - Closed Specialty Diagnoses / Procedures Referred By Contac t Referred To Contact Physical Therapy Diagnoses Left shoulder pain, unspecified chronicity Demetri Naranjo MD [address] [address] Phone: tel: fax: [facility] OP Physical Therapy [address] [place] [address] Phone: tel: fax: Referral ID Status Reason Start Date Expiration Date V isits Requested Visits Authorized [id number] Closed Evaluate and Treat 03/21/2024 06/21/2024 12 12 Encounter Details Date Type Department Care Team (Late st Contact Info) Description 03/23/2024 8:30 AM CDT Therapy [facility] Hand & Shoulder [address] [address] Cesar Angeles PT Left shoulder pain, unspecified chronicity Social History Tobacco Use Types Packs/Day Years [...] from doctor or pharmacy Often 01/20/2024 [facility] Utilities Answer Date Recorded In [...] often do you attend chur ch or rastafari services? More than 4 times per year 02/01/2024 Do you belong to any clubs o r organizations such as faith groups, unions, fraternal or athletic groups, or [...] any time in the past 12 [facility], were you homeless or living in a fdc (including now)? No 02/01/2024 Personal Safety Answer Date Recorded Have you ever been in or are you currently in a harmful physical or emotional relationship or is someone making you feel afraid or unsafe? 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 Left shoulder pain, unspecified chronicity M25.512 Ambulatory referral order to Physical Therapy- DEMETRI NARANJO. Copy diagnosis, goals, cert, etc [...] 06/23/24 Date Date Date Date Date 03/23/24 Visit Number 1 Exercises/ Treatment HP pre-tx. 5 min Pulleys flex PROM shoulder flex PROM shoulder IR PROM shoulder ER Table Slides flex Cane AAROM -ext -IR -ER 10 x 3 0sec 5 x 3 0sec 5 x 3 0sec ADD 10x 10x ADD ADD ADD ADD IFC 10 min Progress Note/Re-Cert * Ceasr Angeles, PT - 03/23/2024 8:30 AM CDT Images from the original note were not included. PT Initial Evaluation/Initial Certification 03/23/2024 Barbara Chakraborty 1950 73 y.o. female DEMETRI NARANJO ICD-10-CM 1. Left shoulder pain, unspecified chronicity M25.512 Ambulatory referral order to Physical Therapy- Past Medical History: Diagnosis Date Anemia Arthritis CHF (congestive heart failure) ([facility]) ([facility]) CKD (chronic kidney disease) stage V requiring chronic dialysis ([facility]) Dementia ([facility]) Depression Diabetic neuropathy ([facility]) End stage chronic kidney disease ([facility]) ([facility]) hemodialysis T Th Sat GERD (gastroesophageal reflux disease) HL (hearing loss) Hyperlipidemia Hypertension Movement disorder Osteomyelitis ([facility]) Rotator cuff tear, left Schizophrenia ([facility]) Type 2 diabetes mellitus ([facility]) Past Surgical History: Procedure Laterality Date SECTION Right right foot COLONOSCOPY EYE SURGERY cataracts FLUORO GUIDED INJECTION SHOULDER LEFT Left 12/18/2023 TOE AMPUTATION Right 01/06/2020 4th toe amp/ foot debridement/ Dr. Anat Pelayo TUNNELED LINE PLACEMENT > 5 YEARS N/A 10/15/2023 Voice Over Announcer Services Utilized: NO Patient is identified by name and date of on this visit. Subjective: History of Present Condition Surgical Patient: NO If yes, date of surgery: Date of Onset: Approximately 02/22/24 Description of Onset: L. Shoulder pain began with no known cause. Prior Diagnostic Tests and Results: shoulder x-ray was unremarkable Other Treatment for this Diagnosis: none Previous Physical Therapy for this Diagnosis: NO If yes, when: Response to prior therapy treatment: Changes/reason for returning to therapy: Symptoms Pt reports intermittent L. Shoulder pain with current pain rated 7/10. Exacerbating Factors: shoulder flex or abd AROM Relieving Factors: none Function Current Functional Deficits: difficulty washing/dressing; reaching into overhead cabinets; Functional Status (just prior to the onset of the treating condition requiring therapy): WFL Occupation: retired Physical Work Requirements: Anticipated Return to Work Date: Prior Responsibilities in the Home Environment: house work Equipment Used: uses cane for gait Lives in: house Support at Home: none Home environment/obstacles: unknown Cognitive Status: follows directions and able to answer questions independently If there are deficits, how does this affect functional limitations? NA Objective: Shoulder Objective AROM (in Deg.) L. Shoulder Flexion 92 External rotation L. Upper trap Internal rotation L3 PROM (in Deg.) L. Shoulder Flexion 110 External rotation 35 (70 abd) Internal rotation 30 (70 abd) Gait: pt. presents in manual WC, but is able to transfer from to treatment table with min assistof 1. Posture: protracted L. Scapula; increased thoracic kyphosis Palpation: tenderness over superior shoulder Strength: Special tests: Pec minor flexibility: Treatment Performed on This Visit: Manual Therapy: Therapeutic Procedure/Exercise: shoulder ROM Modalities: HP; IFC HEP given: shoulder ROM Patient education: Assessment: Rehab potential or prognosis: good Patient requires additional skilled therapy services for pain and decreased shoulder ROM for returnto prior level of function. Patient participated in establishing goals. PT Diagnosis: L. Shoulder joint stiffness Precautions: none Relevant Comorbidities: gait dysfunction; diabetes mellitus Short-Term Goals: to be met by 04/13/24 [...] INITIAL CERTIFICATION DATES: From 03/23/2024 to 06/23/24 PT Eval Date: 03/23/2024 Orders : 06/23/24 Plan: Patient will benefit from skilled physical therapy services 2 times per week for 12 visits until 06/23/24. Treatment may include: therapeutic exercise, manual therapy, modalities as needed, and home exercise program. Patient educated and acknowledged understanding of therapy diagnosis, prognosis, pain relief instructions, precautions, risks, benefits and agree with the treatment plan and goals. Patient will be discharged from therapy upon completion of goals, physician order, or when therapist determines patient is appropriate for discharge from skilled therapy services. Cesar Angeles PT [facility] ATTENTION PHYSICIAN If you are unable to electronically sign this document, please print this document and sign below to certify this plan of care/treatment plan. Please fax back to . Thank you. Provider Signature: Date: documented in this encounter Plan of Treatment Upcoming Encounters Date Type Department Care Team (Latest Contact Info) Description 07/13/2024 9:00 AM SOLAR PHOTOVOLTAIC INSTALLER Hospital Encounter [facility] [address] [place] [address] Jaya Grier MD [address] [facility] [address] [place] [address] 07/13/2024 9:00 AM SOLAR PHOTOVOLTAIC INSTALLER - 07/13/2024 9:30 AM SOLAR PHOTOVOLTAIC INSTALLER Surgery [facility] [address] [place] [address] Jaya Grier MD [address] [facility] [address] [place] [address] ESOPHAGOGASTRODUODENOSCOPY Scheduled Procedures Name Priority Associated Diagnoses Date/Ti fl ESOPHAGOGASTRODUODENOSCOPY Anemia, unspecified type Gastritis without bleeding, unspecified chronicity, unspecified gastritis type 07/13/2024 9:00 AM SOLAR PHOTOVOLTAIC INSTALLER COLONOSCOPY Iron deficiency anemia due to chronic blood loss documented as of this encounter Visit Diagnoses Diagnosis Left shoulder pain, unspecified chronicity Anemia, unspecified type Gastritis without bleeding, unspecified chronicity, unspecified gastritis type documented in this encounter Orders Outpatient Referral Count Last Ordered Date Fir st Ordered Date AMB REFERRAL ORDER TO PHYSICAL THERAPY 1 documented in this encounter 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 06/26/2024 3:05 AM SOLAR PHOTOVOLTAIC INSTALLER documented as of this encounter Care Teams Youth Associate Relationship Specialty Start Date End Date Cherelle Corcoran MD PCP - General Family Medicine 08/30/19 Mark Queen MD Consulting Physician Infectious Diseases 01/10/20 Rudolph Welch MD [address] [facility] [address] [place] [address] Consulting Physician Infectious Diseases 12/05/22 Markie Ryan MD [address] [facility] [address] [place] [address] Consulting Physician Nephrology 12/05/22 Dulce Vega, ALIREZA [address] [place] [address] [address] [place] [address] Supervising Film Or Videotape Editor 10/07/23 05/03/24 [place] [address] [facility] [address] [place] [address] Consulting Physician Nephrology 10/22/23 Jaya Grier MD [address] [facility] [address] [place] [address] Consulting Physician Gastroenterology 02/01/24 documented as of this encounter
--- OUTSIDE RECORDS SUMMARY | 2024-07-04 04:01 | XMS_ITS | Encounter Summary ---
Author Organization [facility] Address [address] [place] [address] Care Team Providers Care Camp Assistant Name Role Phone Cherelle Corcoran MD Primary Care Pro vider Mark Queen MD Unavailable [phone] Rudolph Welch MD Unavailable Markie Ryan MD Unavailable [phone] Dulce Vega RN Unavailable Jimbo Strauss MD Unavailable [phone] Jaya Grier MD Unavailable Reason for Visit * Auth/Cert (Routine) Specialty Diagnoses / Procedures Referred By Contac t Referred To Contact Diagnoses Screening for colon cancer Screening for colon cancer [Z12.11] Procedures [place] COLONOSCOPY,DIAGNOSTIC COLONOSCOPY Referral ID Status Reason Start Date Expiration Date Visits Re quested Visits Authorized [id number] 1 1 Encounter Details Date Type Department Care Team (Latest Contact Info) Description 03/01/2024 6:33 AM CDT - 03/01/2024 10:09 AM CDT Hospital Encounter [facility] [address] [place] [address] Jaya Grier MD [address] [address] Screening for colon cancer Discharge Disposition: Discharge to home or self [...] materials from doctor or pharmacy Often 01/20/2024 [facility] Utilities Answer Date Recorded In the past 12 months has e [employer], [employer], oil, or water [employer] threatened to shut off services in your [...] How often do you attend chur or anabaptist services? More than 4 times per year [...] place to sleep or slept in a [place] (including now)? No 10/30/2023 Housing Stability Vital Sign Answer Fuentes e Recorded In the last 12 months, was t here a time when you were not able to pay the mortgage or rent on time? No 02/01/2024 In the past 12 months, how m any times have you moved where you were living? 0 02/01/2024 At any time in the past 12 m [facility], were you homeless or living in a [place] facility (including now)? No 02/01/2024 Personal Safety Answer Date Recorded Have you ever been in or are you currently in a harmful physical or emotional relationship or is someone making you feel afraid or unsafe? Denies 03/01/2024 Comments No Sex and Gender Information Value Date Recorded Sex Assigned at Not on file Legal Sex Female 9:03 AM CLINICAL RECRUITER Gender Identity Female 02/08/2020 6:39 PM CDT Sexual Orientation Not on file documented as of this encounter Last Filed Vital Signs Vital Sign Reading Time Taken Comments Blood Pressure 130/73 03/01/2024 9:47 AM CDT Pulse 73 03/01/2024 9:47 AM CDT Temperature 36.3 ??C (97.4 ??F) 03/01/2024 9:09 AM CD T Respiratory Rate 15 03/01/2024 9:47 AM CDT Oxygen Saturation 100% 03/01/2024 9:47 AM CDT Inhaled Oxygen Concentration - - [...] as needed for rhinitis FreeStyle Madhav 3 [place] misc Use Madhav 3 reader to scan [...] neuropathy, with long-term current use of insulin ([facility]) USE DIRECTED FOUR TIMES DAILY 100 each [...] hypertension,Chron ic diastolic congestive heart failure (CMS/HCC) (HCC) Take [...] neuropathy, with long-term current use of insulin ([facility]) Use to continually monitor glucose, [...] Date Anemia Arthritis CHF (congestive heart failure) ([facility]) ([facility]) CKD (chronic kidney disease) stage V requiring chronic dialysis ([facility]) Dementia ([facility]) Depression Diabetic neuropathy ([facility]) End stage chronic kidney disease (CMS/HCC) ([facility]) hemodialysis T Thu GERD (gastroesophageal reflux disease) HL (hearing loss) Hyperlipidemia Hypertension Movement disorder Osteomyelitis ([facility]) Rotator cuff tear, left Schizophrenia ([facility]) Type 2 diabetes mellitus ([facility]) Medications Prior to Admission Medication Sig Dispense [...] 60 capsule 0 flash glucose scanning reader [facility] Use Madhav 3 reader to scan Madhav 3 sensor 1 each 0 flash glucose sensor (FreeStyle Madhav 2 Sensor) kit Use to continually monitor glucose, change every 14 days 6 kit 3 fluticasone propionate (FLONASE) 50 mcg/actuation nasal spray Administer 2 sprays into each nostrildaily as needed for rhinitis Unknown FreeStyle Madhav 3 [place] [facility] Use Madhav 3 reader to scan Madhav [...] - 03/01/2024 8:49 AM CDTAssociated Order(s): COLONOSCOPY [facility] GI ENDOSCOPY Patient Name: Sixto Chakraborty Procedure Date: 03/01/2024 8:49 AM Date of : 1950 Admit Type: Outpatient Age: 73 Gender: Female Attending MD: Jaya Grier M.D. Room: [facility] ENDOSCOPY ROOM 06 Note Status: [...] scope was passed under direct vision. The [id number]-[id number] colonoscope was introduced through the anus and [...] On: 03/01/2024 8:49 AM Recognized by the [employer] for promoting quality [...] a colonoscopy ~Make sure you have a double bottom driver to bring you home. ~The morning [...] ~The day before the procedure, our medical office assistant instructor will be contacting you to confirm you are still coming for your appointment and that you have your prep instructions and will be starting them soon. This is to decrease cancellations as much as possible. ~Please arrive at [facility], Medical Office Building 1, Outpatient surgery entrance at (0615), for your procedure start time of (0715). ~You will be here a total of approximately 2-2.5 hours. documented in this encounter Plan of Treatment Upcoming Encounters Date Type Department Care Team (Latest Contact Info) Description 07/13/2024 9:00 AM [facility] Hospital Encounter [facility] [address] [place] [address] Jaya Grier MD [address] [place] [address] 07/13/2024 9:00 AM CLINICAL RECRUITER - 07/13/2024 9:30 AM [facility] Surgery [facility] [address] [place] [address] Jaya Grier MD [address] [place] [address] ESOPHAGOGASTRODUODENOSCOPY Scheduled Procedures Name Priority Associated Diagnoses Date/Ti me ESOPHAGOGASTRODUODENOSCOPY Anemia, unspecified type Gastritis without bleeding, unspecified chronicity, unspecified gastritis type 07/13/2024 9:00 AM CLINICAL RECRUITER COLONOSCOPY Iron deficiency anemia due to chronic [...] 9:04 AM CDT Comment:Cold biopsy Narrative PATHOLOGY [facility] - 03/02/2024 3:24 PM CDT [facility] Department of Pathology [address] [place] [address] ?? Note to Patients: ??This report may [...] ??1950 (Age: 73) Gender: ??F Address: ??[address], [place] [address] [facility] #: [id number] Service: Gastro Location: Patient Type: B SDS [...] C1. Jar 0. ?? jjmhb/03/01/2024 11:29 CAMILA Johnson, ANAY [facility] Microscopic slide review and interpretation for this case was performed at [facility], Department of Surgical Pathology, [address] [facility] [place], [place] [id number], ??[place], [place] ??[address] ?? CLIA # [id number] us Jaya Grier MD LAB PATHOLOGY ORDERABLES Final R esult PATHOLOGY [facility] * Colonoscopy (03/01/2024 8:49 AM CDT) Anatomical Region Laterality Modality Other Narrative Procedure Note Jaya Grier MD - 03/01/2024 8:49 AM CDT [facility] GI ENDOSCOPY Patient Name: Sixto Banksgers Procedure Date: 03/01/2024 8:49 AM Date of : 1950 Admit Type: Outpatient Age: 73 Gender: Female Attending MD: Jaya Grier M.D. Room: [facility] ENDOSCOPY ROOM 06 Note Status: [...] The scope was passed under direct vision.The [id number]-[id number] colonoscope was introduced through theanus and advanced [...] On: 03/01/2024 8:49 AM Recognized by the [employer] for promoting quality in endoscopy Jaya Grier MD ENDOSCOPY PROCEDURES Final Resul t * POC Blood Gas and Chemistries, Venous - (03/01/2024 8:17 AM CDT) pH,chris POC 7.37 7.32 - 7.43 pCO2, chris POC 49 40 - [address] [facility] pO2,chris POC [address] [facility] Comment: Interpretive Data No reference range established. Current interpretive data was last revised 2020. HCO3, chris (Calc) POC 28 20 - 30 mmol/L [facility] Base excess, chris POC 2 mmol/L [facility] Comment: Interpretive Data No reference range established. Current interpretive data was last revised 2020. Hemoglobin, chris POC 13.3 11.9 - 15.5 g/dL [facility] Hematocrit, chris POC 39.0 35.6 - 45.5 % [facility] Sodium, chris POC 143 135 - 145 mmol/L [facility] Potassium, chris POC 3.6 3.3 - 4.9 mmol/L [facility] Comment: Interpretive Data This method is not able to assess for hemolysis, which may falsely increase potassium concentrations. If further testing is needed to evaluate this result, consider in-laboratory plasma potassium. Current Interpretive Data was last revised on 2022. Glucose, chris POC 100 70 - 199 mg/dL [facility] Ionized Calcium, chris POC 5.00 4.50 - 5.10 mg/dL [facility] Blood 03/01/2024 8:17 AM CDT 03/01/2024 8:17 AM CDT us Jaya Grier MD LAB POCT ORDERABLES - DEVICE Fin al Result NILSA [address] [facility] Department [place] [address] documented in this encounter Visit Diagnoses Diagnosis Screening for colon cancer- Primary Special screening for malignant neoplasms, colon Anemia, [...] Maddie Carney CRNA)[phone] (Stopped - Provider: Rosa Medina RN) PRN Medication Order 02/28/2024 02/29/2024 03/01/2024 lidocaine [...] famotidine (PEPCID) tablet 20 mg 1 03/01/20 Lactated Ringer's (LR) infusion 1 lidocaine (XYLOCAINE) [...] Time 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 12/29/2023 06/26/2024 3:05 AM CLINICAL RECRUITER documented as of this encounter Care Teams Camp Assistant Relationship Specialty Start Date End Date Cherelle Corcoran MD PCP - General Family Medicine 08/30/19 Mark Queen MD Consulting Physician Infectious Diseases 01/10/20 Rudolph Welch MD [address] [place] [address] Consulting Physician Infectious Diseases 12/05/22 Markie Ryan MD [address] [place] [address] Consulting Physician Nephrology 12/05/22 Dulce Vega RN [address] [place] [address] [address] [place] [address] Veneer Clipper 10/07/23 05/03/24 [place] [id number] [address] Consulting Physician Nephrology 10/22/23 Jaya Grier MD [address] [place] [address] Consulting Physician Gastroenterology 02/01/24 documented as of this encounter
--- OUTSIDE RECORDS SUMMARY | 2024-07-04 04:01 | XMS_ITS | Encounter Summary ---
Author Organization [facility] Healthcare Address [address] [place] [address] Care Team Providers Care Acquisition Specialist Name Role Phone Cherelle Corcoran MD Primary Care Pro vider Mark Queen MD Unavailable [phone] Rudolph Welch MD Unavailable Markie Ryan MD Unavailable [phone] Dulce Vega RN Unavailable Jimbo Strauss MD Unavailable [phone] Jaya Grier MD Unavailable Reason for Referral * Procedure (Routine) - Authorized Specialty Diagnoses / Procedures Referred By Contac t Referred To Contact Diagnoses Myalgia of muscle of neck Procedures Trigger Point Injection Brook Muhammad CONFIDENTIAL INVESTIGATOR [address] [facility] [address] [place] [address] Phone: tel: fax: [facility] Medical Group Referral ID Status Reason Start Date Expiration Date V isits Requested Visits Authorized [id number] Authorized 04/06/2024 05/06/2025 1 1 * Diagnostic Imaging (Routine) - Closed Specialty Diagnoses / Procedures Referred By Contac t Referred To Contact Diagnoses Neck pain Procedures XR Spine Cervical W Flexion And Extension 6 or More Views Brook Muhammad NP [address] [place] [address] [address] [place] [id number] Phone: tel: fax: [address] [phone] Referral ID Status Reason Start Date Expiration Date Visits Re quested Visits Authorized [id number] Closed 03/18/2024 04/17/2025 1 1 Reason for Visit * Reason Comments Pain Encounter Details Date Type Department Care Team (Late st Contact Info) Description 04/06/2024 10:00 AM CDT Office Visit [facility] Medical Group Orthopedics and Sports Medicine [address] [place] [address] [place] [phone] Brook Muhammad NP [address] [place] [address] [address] [place] [id number] Neck pain; Foraminal stenosis of cervical region, diffuse bilateral; Arthropathy of cervical facet joint; Cervical spinal osteophytosis, multilevel; DDD (degenerative disc disease), cervical, C3-C4 through C6-C7; Numbness and tingling of left upper extremity; Myalgia of muscle of neck Social History Tobacco Use Types Packs/Day Years [...] materials from doctor or pharmacy Often 01/20/2024 [facility] Utilities Answer Date Recorded In the past [...] often do you attend chur ch or protestant services? More than 4 times per year 02/01/2024 Do you belong to any clubs o r organizations such as anabaptism groups, unions, fraternal or athletic groups, or [...] living in a snf (including now)? No 02/01/2024 Personal Safety Answer Date Recorded Have you ever been in or are you currently in a harmful physical or emotional relationship or is someone making you feel afraid or unsafe? Denies 03/01/2024 Comments No Sex and Gender Information Value Date Recorded Sex Assigned at Not on file Legal Sex Female 9:[address] Gender Identity Female 02/08/2020 6:39 PM CDT Sexual Orientation Not on file documented as of this encounter Last Filed Vital Signs Vital Sign Reading Time Taken Comments Blood Pressure - - Pulse - - Temperature - - Respiratory Rate - - Oxygen Saturation - - Inhaled Oxygen Concentration - - Weight 59 kg (130 lb) 04/06/2024 10:17 AM CDT Height 157.5 cm (5' 2 ) 04/06/2024 10:17 AM CDT Body Mass Index 23.78 04/06/2024 10:17 AM CDT documented in this encounter Progress Notes * Brook Muhammad NP - 04/06/2024 10:00 AM CDTAssociated Order(s): Trigger Point Injection Post-Procedure Diagnose(s): Myalgia of muscle of neck Images from the original note were not included. Addendum Cervical spine x-rays (6 views including flexion, extension) April 06, 2024, findings per radiologist Dr. Tahmina Feliciano: FINDINGS: ALIGNMENT: There is straightening of the normal cervical lordosis with decreased range of motion with flexion and extension. There is no subluxation seen with flexion or extension. VERTEBRAE: Vertebral bodies are normal in height. There is mild diffuse facet arthropathy, slightlyincreased from previous. The spinous processes are intact. DISCS: There is moderate disc height loss at C3-C4 through C7-C6 with mild endplate irregularity and anterior endplate osteophytes, progressed from previous. There is diffuse bilateral neural foraminal narrowing at these levels. SOFT TISSUES: No significant abnormalities seen. IMPRESSION: Progressive degenerative change of the cervical spine. Reason for Appointment 04/06/2024 Evaluation of neck pain with pain radiating down the left upper extremity History of Present Illness: Barbara Chakraborty is a 73 y.o. female arrived to the orthopedic department by wheelchair accompanied by her son (she reports that she does not use a wheelchair at home, only when she was out). She was referred to me by Dr. Demetri Bacon for further evaluation of her neck pain symptoms (she is under t he care of Dr. Demetri Bacon for massive retracted tear of the left rotator cuff). Barbara reports having up to 8/10 dull, achy, sharp pain to the left > right posterior neck region with pain radiating down her left upper extremity to her hand and fingers. She reports that her pain symptoms are present all day and all night. Her neck pain symptoms worsen with looking upward, looking down, but do es not seem to bother her much with looking from side to side. She currently uses acetaminophen, gabapentin and tramadol that is prescribed by her PMD. She denies any recent injuries contributing to her neck pain symptoms. Onset of neck pain symptoms: Barbara reports having increased neck pain January 2024 with no associatedinjuries. 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 She lives with her daughter. Red flags in history of spine pain: Trauma: No recent trauma/injury 05/08/2022: Multiple episodes of falling due to weakness. She was evaluated at [facility] Unexplained weight loss: She has episodes of weight fluctuation Neurological findings-bowel or bladder incontinence: She has end-stage renal disease, on dialysis Age: 73 years old Fever: No recent fevers or chills Immunocompromised: No history of immunocompromise condition Steroid use: No chronic daily steroid use History of spinal infections or history of cancer: No history of history of spinal infections. No personal history of cancer. Assessment: Diagnosis Plan 1. Neck pain XR Spine Cervical W Flexion And Extension 6 or More Views 2. Foraminal stenosis of cervical region, diffuse bilateral 3. Arthropathy of cervical facet joint 4. Cervical spinal osteophytosis, multilevel 5. DDD (degenerative disc disease), cervical, C3-C4 through C6-C7 6. Numbness and tingling of left upper extremity 7. Myalgia of muscle of neck Trigger Point Injection lidocaine (XYLOCAINE) 10 mg/mL (1 %) injection 2 mL triamcinolone (KENALOG) 40 mg/mL injection 80 mg Plan: Today Barbara, her son and I used shared decision-making formulate a plan to help with reduction of her neck pain symptoms, left upper extremity pain symptoms. I reviewed with Barbara and her son, the cervical spine (six views including flexion, extension) x-rays obtained today April 06, 2024. See below for more cervical spine x-ray details. We agreed to try some cortisone trigger point injections today in the office see if this will help with her neck pain symptoms. Today I gave Barbara cortisone trigger point injections using 1 mL 1% lidocaine without epi and 40 mg triamcinolone each to the bilateral cervical paraspinal muscle region near C6-C7 where there was reproducible pain with palpation. Barbara was made aware that the cortisone trigger point injections can cause a rise in her blood glucose levels. I have recommended outpatient physical therapy to help with her neck pain symptoms as well as to help with her hand grasp. Barbara reports that she has outpatient physical therapy scheduled in the hand department on April 07, 2024. She has a follow-up appointment scheduled with me on July 13, 2024 for further evaluation of herneck pain symptoms. Imaging Reviewed: Cervical spine x-rays (6 views including flexion, extension) April 06, 2024 Procedure: Trigger Point Injection Performed by: Brook Muhammad NP Authorized by: Brook Muhammad NP Consent Given by: Patient Site marked: the procedure site was marked Timeout: prior to procedure the correct patient, procedure, and site was verified Consent obtained:: Verbal Risks discussed, including, but not limited to:: Pain and repeat procedure Alternatives discussed:: Alternative treatment, delayed treatment and no treatment Site/side marked: Yes Indications: Myalgia and pain Location: R cervical paraspinal and L cervical paraspinal Local anesthetic: Ethyl chloride spray Ultrasound guidance: No Needle size: 25 G Number of muscles: 1 or 2 Approach: Posterior Medications: 2 mL lidocaine 10 mg/mL (1 %); 80 mg triamcinolone 40 mg/mL Patient tolerance: Patient tolerated the procedure well with no immediate complications Examination: Ortho Exam Cervical spine exam: Inspection of the cervical spine shows straightening of the normal alignment, no cervical spine surgical scars, no skin defects, no muscle atrophy, no masses, no rashes. Palpation: No concerning pain with palpation over the cervical or thoracic spinous process region. There is tenderness with palpation of the bilateral cervical paraspinal/facet region at C6 and C7 levels. Range of motion with flexion is <50??, with extension is <60??, with lateral rotation is <80?? and lateral bending is <45??. There is increased posterior neck pain with neck flexion, neckextension Spurlings test does not produce radicular pain down the bilateral arms Hoffmans test is negative. Lhermittes sign is negative. Sensation is present to the median, ulnar, radial, and axial distribution. Motor strength she does have some motor strength to the bilateral hands and fingers-however she is able to maintain thumbs up against resistance, maintain an okay sign against resistance, maintain abduction of the fingers against resistance, cross the fingers, maintain adduction of the thumb to thefifth finger, against resistanc. She was able to make bilateral hand grasps, however her hand graspis weaker than expected bilaterally Perfusion: + radial and ulnar pulses. Fingers warm to touch with capillary refill < 2 seconds. Tinels Sign does not produce a numbness or tingling sensation in the thumb, index or middle finger.. General Appearance: Well-nourished, in no acute distress. She has dialysis access. Heart: No chest pain Lungs: Unlabored breathing Neurological: Alert and oriented. She does depend on her son to help in decision-making. She is currently using a wheelchair for mobility, however reports that she walks without any assistance at home Psych: Cooperative with exam Allergies: Patient has no known allergies. Medications: Current Outpatient Medications: acetaminophen 500 mg capsule, Take 2 capsules (1,000 mg total) by mouth 3 (three) times a day as needed for mild pain (pain scale 1-4), Disp: , Rfl: aspirin 81 mg chewable tablet, Take 1 tablet (81 mg total) by mouth daily, Disp: , Rfl: atorvastatin (LIPITOR) 40 mg tablet, Take 1 tablet (40 mg total) by mouth nightly, Disp: 30 tablet,Rfl: 11 benzonatate (TESSALON) 100 mg capsule, Take 1 capsule (100 mg total) by mouth 3 (three) times a dayas needed for cough, Disp: 42 capsule, Rfl: 0 blood-glucose sensor (FreeStyle Madhav 3 Sensor) device, Use for continuous glucose monitoring. Change sensor every 14 days, Disp: 6 each, Rfl: 3 carvediloL (COREG) 6.25 mg tablet, Take 1 tablet (6.25 mg total) by mouth 2 (two) times a day with meals, Disp: 180 tablet, Rfl: 3 docusate sodium (COLACE) 100 mg capsule, Take 1 capsule (100 mg total) by mouth every 12 (twelve) hours (Patient taking differently: Take 1 capsule (100 mg total) by mouth 2 (two) times a day as needed), Disp: 60 capsule, Rfl: 0 FeroSuL 325 mg (65 mg iron) tablet, Take 1 tablet (325 mg total) by mouth daily with breakfast, Disp: , Rfl: flash glucose scanning reader [facility], Use Madhav 3 reader to scan Madhav 3 sensor, Disp: 1 each, Rfl: 0 flash glucose sensor (FreeStyle Madhav 2 Sensor) kit, Use to continually monitor glucose, change every 14 days, Disp: 6 kit, Rfl: 3 fluticasone propionate (FLONASE) 50 mcg/actuation nasal spray, Administer 2 sprays into each nostril daily as needed for rhinitis, Disp: , Rfl: FreeStyle Madhav 3 [place] [facility], Use Madhav 3 reader to scan Madhav 3 sensor, Disp: , Rfl: gabapentin (NEURONTIN) 100 mg capsule, TAKE 1 CAPSULE BY MOUTH 3 TIMES PER WEEK AFTER HEMODIALYSIS,Disp: 12 capsule, Rfl: 2 insulin glargine 100 unit/mL (3 mL) pen for injection, Inject 18 Units under the skin nightly, Disp: , Rfl: insulin lispro (HumaLOG, ADMELOG) 100 unit/mL vial for injection, Inject 4 Units under the skin 3 (three) times a day before meals Gets 4 units at baseline then 1 unit for every 50 over 150, Disp: , Rfl: lidocaine (ASPERCREME) 4 % adhesive patch,medicated, Place 1 patch on the skin daily as needed to lower back, Disp: , Rfl: NIFEdipine (NIFEdipine CC) 60 mg 24 hr tablet, TAKE 1 TABLET BY MOUTH DAILY, Disp: 90 tablet, Rfl: 0 pen needle, diabetic (Easy Touch) 32 gauge x 5/32 needle, USE DIRECTED FOUR TIMES DAILY, Disp: 100 each, Rfl: 3 polyethylene glycol (MIRALAX) 17 gram/dose bulk powder, Take 17 g by mouth daily as needed (Constipation), Disp: 595 g, Rfl: 0 sucralfate (CARAFATE) 1 gram tablet, Take 1 tablet (1 g total) by mouth 4 (four) times a day (Patient taking differently: Take 1 tablet (1 g total) by mouth 4 (four) times a day Does not take consistently), Disp: 120 tablet, Rfl: 1 sucroferric oxyhydroxide 500 mg tablet,chewable, Take 0.5 tablets by mouth 3 (three) times a day, Disp: , Rfl: traMADoL (ULTRAM) 25 mg tablet, Take 1 tablet (25 mg total) by mouth every 8 (eight) hours as needed for pain, Disp: 90 tablet, Rfl: 0 benztropine (COGENTIN) 2 mg tablet, Take 1 tablet (2 mg total) by mouth daily, Disp: 30 tablet, Rfl: 0 hydrALAZINE (APRESOLINE) 25 mg tablet, Take 1 tablet (25 mg total) by mouth 2 (two) times a day, Disp: 60 tablet, Rfl: [address] (PROTONIX) 40 mg EC tablet, Take 1 tablet (40 mg total) by mouth 2 (two) times a day, Disp: 60 tablet, Rfl: 1 risperiDONE (RisperDAL) 2 mg tablet, Take 1 tablet (2 mg total) by mouth nightly, Disp: 30 tablet, Rfl: 0 Review of Systems: Review of Systems Constitutional: Negative for chills and fever. Respiratory: Negative for shortness of breath. Cardiovascular: Negative for chest pain. Gastrointestinal: Negative for abdominal pain. Genitourinary: Negative for dysuria. Musculoskeletal: Positive for neck pain. Skin: Negative for erythema, negative for ecchymosis, negative for skin excoriation or rashes. Neurological: Positive for tingling (Left upper extremity). Psychiatric/Behavioral: Positive for memory loss. Past Medical History: Past Medical History: Diagnosis Date Anemia Arthritis CHF (congestive heart failure) ([facility]) ([facility]) CKD (chronic kidney disease) stage V requiring chronic dialysis ([facility]) Dementia ([facility]) Depression Diabetic neuropathy ([facility]) End stage chronic kidney disease ([facility]) ([facility]) hemodialysis T Thu GERD (gastroesophageal reflux disease) HL (hearing loss) Hyperlipidemia Hypertension Movement disorder Osteomyelitis ([facility]) Rotator cuff tear, left Schizophrenia ([facility]) Type 2 diabetes mellitus ([facility]) Past Surgical History: Past Surgical History: Procedure Laterality Date SECTION Right right foot COLONOSCOPY EYE SURGERY cataracts FLUORO GUIDED INJECTION SHOULDER LEFT Left 12/18/2023 TOE AMPUTATION Right 01/06/2020 4th toe amp/ foot debridement/ Dr. Anat Pelayo TUNNELED LINE PLACEMENT > 5 YEARS N/A 10/15/2023 Social History: Social History Tobacco Use Smoking status: Never Passive exposure: Never Smokeless tobacco: Never Substance and Sexual Activity Drug use: Never Sexual activity: Not Currently Partners: Male Alcohol Use: Not At Risk (02/24/2024) AUDIT-C Frequency of Alcohol Consumption: Never Average Number of Drinks: Patient does not drink Frequency of Binge Drinking: Never Vital Signs: Height 157.5 cm (5' 2 ), weight 59 kg (130 lb). BMI Readings from Last 1 Encounters: 04/06/24 23.78 kg/m?? Brook Muhammad NP documented in this encounter Plan of Treatment Upcoming Encounters Date Type Department Care Team (Latest Contact Info) Description 07/13/2024 9:[address] Hospital Encounter [facility] [address] [place] [address] Jaya Grier MD [address] [place] [address] 07/13/2024 9:[address] - 07/13/2024 9:[address] Surgery [facility] [address] [place] [address] Jaya Grier MD [address] [place] [address] ESOPHAGOGASTRODUODENOSCOPY Scheduled Procedures Name Priority Associated Diagnoses Date/Ti me ESOPHAGOGASTRODUODENOSCOPY Anemia, unspecified type Gastritis without bleeding, unspecified chronicity, unspecified gastritis type 07/13/2024 9:[address] COLONOSCOPY Iron deficiency anemia due to chronic blood loss documented as of this encounter Procedures Procedure Name Priority Date/Time Associated Diagnosis Comments [place] INJECTION SINGLE/TRAINING DEVELOPMENT SPECIALIST TRIGGER POINT 1/2 MUSCLES Routine 04/06/2024 10:00 AM CDT Myalgia of muscle of neck documented in this encounter Results * XR [...] D: ??04/08/2024 6:35 PM T: Report ID: [id number] Reading Location: ??[id number] Procedure Note Tahmina Feliciano MD - 04/08/2024 [...] Tahmina Feliciano M.D. SN T: Report ID: [id number] Reading Location: [place] [address] us Brook Muhammad NP IMG XR PROCEDURES Final Res ult * [place] INJECTION SINGLE/TRAINING DEVELOPMENT SPECIALIST TRIGGER POINT 1/2 MUSCLES (04/06/2024 10:00 AM [...] the procedure well with no immediate complications Brook Muhammad CONFIDENTIAL INVESTIGATOR IN CLINIC/BEDSIDE ORDERABLE S Final Result documented in this encounter Visit Diagnoses Diagnosis Neck pain Cervicalgia Foraminal stenosis of cervical region, diffuse bilateral Arthropathy of cervical facet joint Cervical spinal osteophytosis, multilevel Other allied disorders of spine DDD (degenerative disc disease), cervical, C3-C4 through C6-C7 Degeneration of cervical intervertebral disc Numbness and tingling of left upper extremity Myalgia of muscle of neck Neck pain Cervicalgia Anemia, unspecified type Gastritis without bleeding, unspecified chronicity, unspecified gastritis type documented in this encounter Administered Medications Inactive Administered Medications - up to 3 most recent administrations Medication Order MAR Action Action Date Dose Rate Site lidocaine (XYLOCAINE) 10 mg/mL (1 %) injection 2 mL 2 mL, One-Time Injection, Starting on Thu04/06/24 at 1000, For 1 dose, Indications: Administration of Local AnesthesiaIndications:Administrati on of Local Anesthesia Given 04/06/2024 10:00 AM CDT 2 mL triamcinolone (KENALOG) 40 mg/mL injection 80 mg 80 mg, One-Time Injection, Starting on Thu04/06/24 at 1000, For 1 doseIndications:Myalgia of muscle of neck Given 04/06/2024 10:00 AM CDT 80 mg documented in this encounter Discontinued Medications Medication Sig Discontinue Reason Start Date End Da te calcium acetate,phosphat bind, (PHOSLO) 667 mg capsule TAKE 1 CAPSULE(667 MG) BY MOUTH THREE TIMES DAILY WITH MEALS 10/29/2023 04/06/2024 documented as of this encounter 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 06/26/2024 3:[address] documented as of this encounter Care Teams Acquisition Specialist Relationship Specialty Start Date End Date Cherelle Corcoran MD PCP - General Family Medicine 08/30/19 Mark Queen MD Consulting Physician Infectious Diseases 01/10/20 Rudolph Welch MD [address] [facility] [address] [place] [address] Consulting Physician Infectious Diseases 12/05/22 Markie Ryan MD [address] [facility] [address] [place] [address] Consulting Physician Nephrology 12/05/22 Dulce Vega, ALIREZA [address] [place] [address] [address] [place] [address] Rn Pool 10/07/23 05/03/24 [place] [address] [facility] [address] [place] [address] Consulting Physician Nephrology 10/22/23 Jaya Grier MD [address] [facility] [address] [address] Consulting Physician Gastroenterology 02/01/24 documented as of this encounter
--- OUTSIDE RECORDS SUMMARY | 2024-07-04 04:01 | XMS_ITS | Encounter Summary ---
Author Organization [facility] Healthcare Address [address] [place] [address] Care Team Providers Care Manager Reading Name Role Phone Cherelle Corcoran MD Primary Care Pro vider Mark Queen MD Unavailable [phone] Rudolph Welch MD Unavailable [phone] Markie Ryan MD Unavailable [phone] Dulce Vega RN Unavailable Jimbo Strauss MD Unavailable [phone] Jaya Grier MD Unavailable Reason for Visit * Reason Onset Date Comments Medical Question/Miscellaneous 03/30/2024 Encounter Details Date Type Department Care Team ([facility] st Contact Info) Description 03/30/2024 Telephone [facility] Medical Group Primary Care at [place] [id number] [facility] [address] [place] [address] Cherelle Corcoran MD [facility] [address] [place] [address] Medical Question/Miscellaneous Social History Tobacco Use [...] from doctor or pharmacy Often 01/20/2024 [facility] Utilities Answer Date Recorded In the [...] often do you attend chur ch or cheondoism services? 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 Paperwork is completed but there is no fax number for me to send it to. Please confirm how she would like to get the paperwork. Thanks! * Telephone Encounter - Kim Mckenna - 03/30/2024 1:12 PM CDT Medical Question/Miscellaneous Caller???s Concern: Areli, daughter on HIPAA, called to see if the forms sh sent for her brother for FMLA was received for patients doctor to fill out. Said was faxed yesterday, but will re-fax. M[employer]SEM[employer]ER did inform her that it can take a ferw days before items are scanned in. Does message need to be routed? Yes-FYI Only documented in this encounter Plan of Treatment Upcoming Encounters Date Type Department Care Team (Latest Contact Info) Description 07/13/2024 9:00 AM RESIDENTIAL RECYCLE DRIVER Hospital Encounter [facility] [address] [place] [address] Jaya Grier MD [facility] [facility] [address] [place] [address] 07/13/2024 9:00 AM RESIDENTIAL RECYCLE DRIVER - 07/13/2024 9:30 AM RESIDENTIAL RECYCLE DRIVER Surgery [facility] [address] [place] [address] Jaya Grier MD [address] [facility] [address] [place] [address] ESOPHAGOGASTRODUODENOSCOPY Scheduled Procedures Name Priority Associated Diagnoses Date/Ti me ESOPHAGOGASTRODUODENOSCOPY Anemia, unspecified type Gastritis without bleeding, unspecified chronicity, unspecified gastritis type 07/13/2024 9:00 AM RESIDENTIAL RECYCLE DRIVER COLONOSCOPY Iron deficiency anemia due to chronic blood loss documented as of this encounter Visit Diagnoses Not on filedocumented in this encounter 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 06/26/2024 3:05 AM RESIDENTIAL RECYCLE DRIVER documented as of this encounter Care Teams Manager Reading Relationship Specialty Start Date End Date Cherelle Corcoran MD PCP - General Family Medicine 08/30/19 Mark Queen MD Consulting Physician Infectious Diseases 01/10/20 Rudolph Welch MD [address] [facility] [address] [place] [address] Consulting Physician Infectious Diseases 12/05/22 Markie Ryan MD [address] [facility] [address] [place] [address] Consulting Physician Nephrology 12/05/22 Dulce Vega, ALIREZA [address] [place] [address] [address] [place] [address] Garment Steamer 10/07/23 05/03/24 [place] [address] [address] [facility] [address] [place] [address] Consulting Physician Nephrology 10/22/23 Jaya Grier MD [address] [facility] [address] [place] [address] Consulting Physician Gastroenterology 02/01/24 documented as of this encounter
--- OUTSIDE RECORDS SUMMARY | 2024-07-04 04:01 | XMS_ITS | Encounter Summary ---
Author Organization [facility] Healthcare Address [address] [place] [address] Care Team Providers Care Dispatcher Radioactive Waste Disposal Name Role Phone Cherelle Corcoran MD Primary Care Pro vider Mark Queen MD Unavailable [phone] Rudolph Welch MD Unavailable [phone] Markie Ryan MD Unavailable [phone] Dulce Vega RN Unavailable [phone] Jimbo Strauss MD Unavailable [phone] Jaya Grier MD Unavailable Reason for Referral * Consultation (Routine) - Closed Specialty Diagnoses / Procedures Referred By Contac t Referred To Contact Neurology Diagnoses Parkinsonism, unspecified Parkinsonism type (HCC) Cherelle Corcoran MD [address] [address] Phone: tel: fax: [facility] Medical [facility] Neurology [address] [place] [address] [place] [id number] Phone: tel: fax: Referral ID Status Reason Start Date Expiration Date V isits Requested Visits Authorized [id number] Closed Specialty Services Required 04/18/2024 05/18/2025 1 1 Question Answer Please select the performing region: [facility] [[id number]] Please select the performing department: [facility] [[id number]] # of visits: 1 Reason for Visit * Reason Onset Date Comments Med Refill 04/18/2024 benztropine (COG ENTIN) 2 mg tablet Encounter Details Date Type Department Care Team (Late st Contact Info) Description 04/18/2024 Telephone [facility] Primary Care at [place] [address] [address] Cherelle Corcoran MD [address] [facility] [address] [place] [address] Med Refill (benztropine (COGENTIN) 2 mg tablet) Social History Tobacco Use Types Packs/Day Years [...] materials from doctor or pharmacy Often 01/20/2024 [place] Utilities Answer Date Recorded In the past [...] often do you attend chur ch or anabaptism services? More than 4 times per year 04/20/2024 Do you belong to any clubs o r organizations such as taoism groups, unions, fraternal or athletic groups, or [...] place to sleep or slept in a alf (including now)? No 10/30/2023 Housing Stability Vital [...] were you homeless or living in a alf (including now)? No 04/20/2024 Personal Safety Answer Date Recorded Have you ever been in or are you currently in a harmful physical or emotional relationship or is someone making you feel afraid or unsafe? 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 She verbalized understanding. Nothing further at this time * Telephone Encounter - Cherelle Corcoran MD - 04/18/2024 4:43 PM CDT Needs to re-establish with neurology for additional refills, 30d supply sent and referral placed. Please give daughter number to schedule RA * Telephone Encounter - Kate Ivory - 04/18/2024 4:09 PM CDT Medication Refill Patient's last Office/Video Visit: 02/09/24 Patient's next Office/Video Visit: 05/06/24 Medication(s) Name/Dose: benztropine (COGENTIN) 2 mg tablet Pharmacy (s) medication(s) should be sent to: [facility] on file. Additional Comments: none Does message need to be routed? Yes-Action Needed documented in this encounter Plan of Treatment Upcoming Encounters Date Type Department Care Team (Latest Contact Info) Description 07/13/2024 9:00 AM WAX BALL MOLDER Hospital Encounter [facility] GI Lab [address] [place] [address] Jaya Grier MD [address] [place] [address] [address] [place] [address] 07/13/2024 9:00 AM WAX BALL MOLDER - 07/13/2024 9:30 AM WAX BALL MOLDER Surgery [facility] [address] [place] [address] Jaya Grier MD [address] [place] [address] [address] [place] [address] ESOPHAGOGASTRODUODENOSCOPY Scheduled Procedures Name Priority Associated Diagnoses Date/Ti in ESOPHAGOGASTRODUODENOSCOPY Anemia, unspecified type Gastritis without bleeding, unspecified chronicity, unspecified gastritis type 07/13/2024 9:00 AM [facility] COLONOSCOPY Iron deficiency anemia due to chronic blood loss Scheduled Referrals Name Type Priority Associated Diagnoses Orde r Schedule Ambulatory referral to Neurology Outpatient Referral Routine Parkinsonism, unspecified Parkinsonism type (HCC) Expected: 05/02/2024 (Approximate), Expires: 04/18/2025 documented as of this encounter Visit Diagnoses Diagnosis Parkinsonism, unspecified Parkinsonism type (HCC)- Primary Anemia, unspecified type Gastritis without bleeding, unspecified chronicity, unspecified gastritis type documented in this encounter Discontinued Medications Medication Sig Discontinue Reason Start Date End Da te benztropine (COGENTIN) 2 mg tablet Take 1 tablet (2 mg total) by mouth daily Reorder 02/01/2024 04/18/2024 documented as of this encounter 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 06/26/2024 3:05 AM WAX BALL MOLDER COVID: Suspected 04/19/2024 04/19/2024 04/20/2024 12:44 AM CDT documented as of this encounter Care Teams Dispatcher Radioactive Waste Disposal Relationship Specialty Start Date End Date Cherelle Corcoran MD PCP - General Family Medicine 08/30/19 Mark Queen MD Consulting Physician Infectious Diseases 01/10/20 Rudolph Welch MD [address] [facility] [address] [place] [address] Consulting Physician Infectious Diseases 12/05/22 Markie Ryan MD [address] [facility] [address] [place] [address] Consulting Physician Nephrology 12/05/22 Dulce Vega, ALIREZA [address] [place] [address] [address] [place] [address] Emergency Registrar 10/07/23 05/03/24 [place] [address] [facility] [address] [place] [address] Consulting Physician Nephrology 10/22/23 Jaya Grier MD [address] [facility] [address] [place] [address] Consulting Physician Gastroenterology 02/01/24 documented as of this encounter
--- OUTSIDE RECORDS SUMMARY | 2024-07-04 04:01 | XMS_ITS | Encounter Summary ---
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 Initial Evaluation * Speech Pathology (Routine) - Closed Specialty Diagnoses / Procedures Referred By Contac t Referred To Contact Speech Therapy Diagnoses Difficulty swallowing pills Dysphasia Speech disturbance, unspecified type Cherelle Corcoran MD [address] [address] Phone: tel: fax: [facility] OP Speech Therapy [address] [address] Phone: tel: fax: Referral ID Status Reason Start Date Expiration Date V isits Requested Visits Authorized [id number] Closed Evaluate and Treat 03/21/2024 06/21/2024 24 11 Encounter Details Date Type Department Care Team (Late st Contact Info) Description 03/24/2024 8:00 AM CDT Therapy [facility] OP Speech Therapy [address] [place] [id number] Louise Juares, BULK MATERIALS HANDLING PLANT OPERATOR Late onset Alzheimer's dementia without behavioral disturbance (HCC) (Primary Dx); Gastroesophageal reflux disease without esophagitis; Oral phase dysphagia; Difficulty swallowing pills; Dysphasia; Speech disturbance, unspecified type Social History Tobacco Use Types Packs/Day [...] has e electric, gas, oil, or water [employer] threatened to shut off services in your [...] often do you attend chur ch or latter day services? More than 4 times per year [...] any time in the past 12 m [facility], were you homeless or living in a senior care (including now)? No 02/01/2024 Personal Safety Answer Date Recorded Have you ever been in or are you currently in a harmful physical or emotional relationship or is someone making you feel afraid or unsafe? Denies 03/01/2024 Comments No Sex and Gender Information Value Date Recorded Sex Assigned at Not on file Legal Sex Female 9:03 AM ROTARY DRIER FEEDER Gender Identity Female 02/08/2020 6:39 PM CDT Sexual Orientation Not on file documented as of this encounter Progress Notes * Louise Juares, BULK MATERIALS HANDLING PLANT OPERATOR - 03/24/2024 8:00 AM CDT Images from the original note were not included. [facility] Speech-Language Pathology Evaluation: DYSPHAGIA DATE: 03/24/2024 GENERAL INFORMATION PATIENT: Barbara Chakraborty : 1950, 73 y.o. SEX: female REFERRING PHYSICIAN: Cherelle Corcoran MD [address] [place] [address] DIAGNOSIS: ICD-10-CM 1. Late onset Alzheimer's dementia without behavioral disturbance (HCC) G30.1 F02.80 2. Gastroesophageal reflux disease without esophagitis K21.9 3. Oral phase dysphagia R13.11 4. Difficulty swallowing pills R13.10 Ambulatory referral order to Speech Therapy - 5. Dysphasia R47.02 Ambulatory referral order to Speech Therapy - 6. 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 is a 73 y.o. female referred to skilled ST for evaluation due to difficulty swallowing pills and pocketing food (specifically meat) that began approximately 6 months ago (September 2023). Prior to September the pt. independently consumed regular consistency diet and liquids without s/s of aspiration and choking. PRIOR SKILLED ST FOR CURRENT CONDITION: No CURRENT HOME ENVIRONMENT: Lives with daughter, Areli Gayle who is her primary caregiver and serves as Collateral Source (CS). Consumes regular renal diet. IMAGING/DIAGNOSTIC TESTIN02/09/24 EXAM DESCRIPTION: XR CHEST PA LATERAL 2 VIEWS REASON FOR STUDY: Pt daughter states her mom has had a cough for 1 week FINDINGS: Two views compared to January 29, 2024 demonstrate a right internal jugular central venous catheter which is unchanged in position. Normal heart size. No focal consolidation. No pleural effusions. IMPRESSION: No acute radiographic abnormality. Pt. has orders for MBSS pending scheduling MENTAL STATUS: confused. Pt. has late onset Alzheimer's PAIN: 0/10, hands and feet are numb d/t neuropathy PRECAUTIONS: confusion Patient is identified by name and date of on this visit. Staff Air Defense Officer Services Utilized: NO SUBJECTIVE PATIENT DESCRIPTION/ONSET: Areli states her mother started pocketing food about 6 months ago and often has difficulty swallowing pills. She states she will give her mother her pills and then returns to the room and finds them discolored and partially dissolved on her plate or next to her. assists with all ADL's. Irwin CLINICAL OBSERVATIONS: Confused, pt. does not know why she is here, denies any swallowing issues. Follows simple commands. CURRENT DIET/MODIFICATIONS: none PAIN ASSESSMENT WITH SWALLOWING: Pain is reported as 0/10 Eating Assessment Tool (EAT-10): My swallowing problem has caused me to lose weight 3 My swallowing problem interferes with my ability to go out for meals 1 Swallowing liquids takes extra effort 0 Swallowing solids takes extra effort 3 Swallowing pills takes extra effort 3 Swallowing is painful 0 The pleasure of eating is affected by my swallowing 2 When I swallow food sticks in my throat 0 I cough when I eat 2 Swallowing is stressful 2 Total EAT-10 Score 16/40 *Normative data suggests that an EAT-10 score of 3 or higher is abnormal. Reflux Symptom Index: Hoarseness or problem with your voice 0 Clearing your throat 2 Excess throat mucous or postnasal drip 2 Difficulty swallowing food, liquids, or pills 4 Coughing after you are eating or laying down 4 Breathing difficulties or choking episodes 0 Troublesome or annoying cough 2 Sensations or something sticking in your throat 0 Heartburn, chest pain, indigestion, or stomach acid coming up 3 Total Score Reflux Symptom Score 17/45 *Normative data suggests that an RSI of greater than or equal to 13 is clinically significant. Therefore, an RSI > 13 may be indicative of significant reflux disease. OBJECTIVE ORAL/MOTOR ASSESSMENT: Labial Function: Within functional limits Lingual Function: Reduced strength Palatal Evaluation: Within functional limits Mandible: Within functional limits Facial Function: Within functional limits Dentition: Dentures top and Dentures bottom Oral Sensory: Within functional limits Vocal quality was subjectively judged as being Within functional limits. RESPIRATORY SUPPORT: No Significant Impairment- Respiratory support is adequate for speech & swallowing CONSISTENCIES ADMINISTERED: thin, puree, soft solid, and solid Harris Assessment of Swallowing Ability (MASA): Alertness 10 - alert Cooperation 10 - cooperative Auditory Comprehension 6 - follows simple conversation with repetition Respiration 10 - chest clear Respiratory Rate (for swallow) 5 - able to control breath rate for swallow Dysphasia 3 - expresses self in limited manner short phrases/words Dyspraxia 5 - WNL Dysarthria 5 - WNL Saliva 5 - WNL Lip seal 5 - WNL Tongue movement 10 - full ROM Tongue strength 8 - minimal weakness Tongue coordination 8 - mild incoordination Oral preparation 10 - WNL Gag 5 - hyper reflexive, WNL Palate 10 - WNL Bolus clearance 8 - significant clearance/minimal residue Oral transit 8 - delay > 1 sec Cough reflex 5 - WNL Voluntary Cough 10 - WNL Voice 10 - WNL Trache 10 - WNL Pharyngeal phase 8 - laryngeal elevation mildly restricted/slow initiation/incomplete clearance Pharyngeal response 10 - WNL Total Score 179/200 Dysphagia: No dysphagia detected (178-200) Aspiration Risk: No aspiration risk (170-200) *The MASA score is measured using a 1 to 10 point rating scale. The total score of the MASA is 200 points, and the cutoff value is 177 points. The results of the MASA are interpreted as no abnormality (>=178), mild dysphagia (168-177), moderate dysphagia (139-167), and severe dysphagia (<=138). Score Interpretation: Based on results of the MASA pt. does not show presence of dysphagia however pt. score of 179 is low bottom before cutoff at 178. Therapist recommends instrumental testing basedon results of the EAT-10, REFLUX Index scale, and CS report. ASSESSMENT THERAPY IMPRESSION/DIAGNOSIS: Pt. presents with oral dysphagia characterized by pocketing food, decreased lingual strength, decreased range, and decreased coordination resulting in poor oral control and bolus prep. RECOMMENDATIONS: BULK MATERIALS HANDLING PLANT OPERATOR recommends MBSS WITH PILL trial to further assess swallow integrity and dtermine compensatory strategies and LRD consistencies. Further skilled therapy is not appropriate due to severity of pt. progressive neurological disease. Diet Recommendations: Soft & Bite Sized (IDDSI Level 6) and Minced & Moist (IDDSI Level 5) Supervision/assist -cue patient for all precautions Sit upright at 90' angle when eating/drinking Small sips Remain upright for 20-30 minutes after meals Reflux precautions Medication Administration: as tolerated Assistance: N/A POTENTIAL BARRIERS: cognitive function, poor insight , and progressive neurodegenerative disease TREATMENT Skilled ST services provided this date: swallowing therapy Swallowing treatment included: compensatory strategy training, education , and other: diet texture analysis OBJECTIVE: Diet analysis and compensatory strategy implementation. ASSESSMENT: Pt. consumed pudding, crackers, and teddy chunks in pudding demonstrating delayed oral prep and suspected premature spilling. Oral residue present (scattered). Pt. instructed on liquid wash to clearresidue demonstrating excellent return. Cues needs (occasional) to take small bites, one at a time,and increase liquid wash to clear oral and pharyngeal cavity. No coughing or choking with PO intake. No pocketing of food this date. Therapist provided written handout for IDDSI diet levels 5 (mincedmoist) and 6 (soft and bite sized). Therapist suggested level 5 diet for meat that is dry/hard to chew and level 6 for all remaining foods. Provided suggestions for adding moisture such as extra butter, sour cream, syrup, broth, creamed soups etc. Explained to Areli she will need to watch salt and sugar intake due to underlying kidney disease and diabetes. Pt. would benefit from consulting director communications due to 30 lb wt. loss. Pt. should have supervision at all meals and cues to follow slow rate, small bites, and extra liquid wash to clear food. Recommended pills in applesauce/pudding either whole or crushed. Patient and Family has/have been educated on results of assessment and recommendations as listed below. Compensatory strategies provided with recommendation for diet levels 5 and 6 established by IDDSI. Education completed via verbal instruction, return demonstration, and handouts. Family verbalized understanding. RESPONSE TO TODAY'S TREATMENT: Good PLAN OF CARE PATIENT/CAREGIVER GOALS: To consume food without swallowing difficulty SHORT TERM GOALS: 1. Pt. will consume regular and soft consistencies without pocketing for using strategies with supervision and cues across 1 session. Pt. consumed with no pocketing. She was given intermittent cues to take an additional drink following 2-3 bites. She demonstrated complete oral clearance following liquid wash. Provided intermittent cues to take small bites one at a time with 100% compliance. Goal Assessment: goal met ENGRAVER OPTICAL FRAMES GOALS: 1. The pt. will utilize compensatory strategies with optimum safety and efficiency of swallowing function on PO intake with min. s/s of aspiration. Goal Assessment: goal met FREQUENCY AND DURATION: 1 visit in 1 session CERTIFICATION DATES: From 03/24/24 to 03/24/[address] treatment. Pt. is not appropriate for strengthening exercises due to severityof dementia. Pt. daughter should follow strategies and provide superviosion and cues at all meals. Crush or give pills whole in applesauce/pudding. DISCHARGE SUMMARY STATEMENT: If this is the last speech therapy visit, this serves as the discharge summary. Louise Juares M.S. [facility]-BULK MATERIALS HANDLING PLANT OPERATOR Speech-Language Pathologist Cosigned by Cherelle Corcoran MD at 03/30/2024 5:27 PM CDT documented in this encounter Plan of Treatment Upcoming Encounters Date Type Department Care Team (Latest Contact Info) Description 07/13/2024 9:00 AM ROTARY DRIER FEEDER Hospital Encounter [facility] [address] [place] [address] Jaya Grier MD [address] [place] [address] [address] [place] [address] 07/13/2024 9:00 AM ROTARY DRIER FEEDER - 07/13/2024 9:30 AM ROTARY DRIER FEEDER Surgery [facility] [address] [place] [address] Jaya Grier MD [address] [place] [address] [address] [place] [address] ESOPHAGOGASTRODUODENOSCOPY Scheduled Procedures Name Priority Associated Diagnoses Date/Ti me ESOPHAGOGASTRODUODENOSCOPY Anemia, unspecified type Gastritis without bleeding, unspecified chronicity, unspecified gastritis type 07/13/2024 9:00 AM ROTARY DRIER FEEDER COLONOSCOPY Iron deficiency anemia due to chronic blood loss documented as of this encounter Visit Diagnoses Diagnosis Late onset Alzheimer's dementia without behavioral disturbance (HCC)- Primary Gastroesophageal reflux disease without esophagitis Esophageal reflux Oral phase dysphagia Dysphagia, oral phase Difficulty swallowing pills Dysphasia Other speech disturbance Speech disturbance, unspecified type Anemia, unspecified type Gastritis without bleeding, unspecified chronicity, unspecified gastritis type documented in this encounter Orders Outpatient Referral Count Last Ordered Date Fir st Ordered Date AMB REFERRAL ORDER TO SPEECH THERAPY 1 08/2023 documented in this encounter 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 06/26/2024 3:05 AM ROTARY DRIER FEEDER documented as of this encounter Care Teams Solutions Architect Consultant Relationship Specialty Start Date End Date Cherelle Corcoran MD PCP - General Family Medicine 08/30/19 Mark Queen MD Consulting Physician Infectious Diseases 01/10/20 Rudolph Welch MD [address] [facility] [address] [place] [address] Consulting Physician Infectious Diseases 12/05/22 Markie Ryan MD [address] [facility] [address] [place] [address] Consulting Physician Nephrology 12/05/22 Dulce Vega RN [address] [place] [address] [address] [place] [address] Trauma Manager 10/07/23 05/03/24 [place] [address] [address] Consulting Physician Nephrology 10/22/23 Jaya Grier MD [address] [facility] [address] [place] [address] Consulting Physician Gastroenterology 02/01/24 documented as of this encounter
--- OUTSIDE RECORDS SUMMARY | 2024-07-04 04:01 | XMS_ITS | Encounter Summary ---
Author Organization [facility] Healthcare Address [address] [place] [address] Care Team Providers Care Director Of Content And Programming Name Role Phone Cherelle Corcoran MD Primary Care Pro vider Mark Queen MD Unavailable [phone] Rudolph Welch MD Unavailable Markie Ryan MD Unavailable [phone] Dulce Vega RN Unavailable [phone] Jimbo Strauss MD Unavailable [phone] Jaya Grier MD Unavailable Encounter Details Date Type Department Care Team (Late st Contact Info) Description 03/24/2024 Plan [address] [facility] OP Speech Therapy [address] [place] [id number] Social History Tobacco Use Types Packs/Day [...] materials from doctor or pharmacy Often 01/20/2024 [facility] Utilities Answer Date Recorded In the [...] often do you attend chur ch or episcopalian services? More than 4 times per year [...] on file Legal Sex Female 9:03 AM CARD GRADER Gender Identity Female 02/08/2020 6:39 PM CDT Sexual Orientation Not on file documented as of this encounter Plan of Treatment Upcoming Encounters Date Type Department Care Team (Latest Contact Info) Description 07/13/2024 9:00 AM CARD GRADER Hospital Encounter [facility] [address] [place] [address] Jaya Grier MD [address] [facility] [address] [address] 07/13/2024 9:00 AM CARD GRADER - 07/13/2024 9:30 AM CARD GRADER Surgery 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 06/26/2024 3:05 AM CARD GRADER documented as of this encounter Care Teams Director Of Content And Programming Relationship Specialty Start Date End Date Cherelle Corcoran MD PCP - General Family Medicine 08/30/19 Mark Queen MD Consulting Physician Infectious Diseases 01/10/20 Rudolph Welch MD [address] [facility] [address] [place] [address] Consulting Physician Infectious Diseases 12/05/22 Markie Ryan MD [address] [facility] [address] [place] [address] Consulting Physician Nephrology 12/05/22 Dulce Vega, ALIREZA [address] [place] [address] [address] [place] [address] Burial Vault Deliverer And Installer 10/07/23 05/03/24 [place] [address] [address] [address] Consulting Physician Nephrology 10/22/23 Jaya Grier MD [address] [facility] [address] [place] [address] Consulting Physician Gastroenterology 02/01/24 documented as of this encounter
--- OUTSIDE RECORDS SUMMARY | 2024-07-04 04:01 | XMS_ITS | Encounter Summary ---
Author Organization [facility] Healthcare Address [address] [place] [address] Care Team Providers Care Burial Needs Salesperson Name Role Phone Cherelle Corcoran MD Primary Care Pro vider Mark Queen MD Unavailable [phone]- [phone] Rudolph Welch MD Unavailable [phone] Markie Ryan MD Unavailable [phone] Dulce Vega RN Unavailable Jimbo Strauss MD Unavailable [phone] Jaya Grier MD Unavailable Reason for Visit * Reason Comments PT Treatment * Physical Therapy (Routine) - Closed Specialty Diagnoses / Procedures Referred By Contac t Referred To Contact Physical Therapy Diagnoses Left shoulder pain, unspecified chronicity Demetri Naranjo MD [address] [address] Phone: tel: fax: [facility] OP Physical Therapy [address] [place] [address] Phone: tel: fax: Referral ID Status Reason Start Date Expiration Date V isits Requested Visits Authorized [id number] Closed Evaluate and Treat 03/21/2024 06/21/2024 12 12 Encounter Details Date Type Department Care Team (Late st Contact Info) Description 04/12/2024 10:45 AM CDT Therapy [facility] Hand & Shoulder [address] [address] Lorie Castañeda, 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 No 02/01/2024 Personal Safety Answer Date Recorded Have you ever been in or are you currently in a harmful physical or emotional relationship or is someone making you feel afraid or unsafe? Denies 03/01/2024 Comments No Sex and Gender Information Value Date Recorded Sex Assigned at Not on file Legal Sex Female 9:03 AM EMERGENCY MEDICAL DISPATCHER Gender Identity Female 02/08/2020 6:39 PM CDT Sexual Orientation Not on file documented as of this encounter Progress Notes * Lorie Castañeda PTA - 04/12/2024 10:45 AM CDT ICD-10-CM 1. Left shoulder pain, unspecified chronicity M25.512 DEMETRI NARANJO Copy diagnosis, goals, cert, etc from eval: [...] Date Date Date Date Date 03/23/24 03/31/24 04/12/24 Visit Number 1 2 Exercises/ Treatment Pt. Arrived 12 min late Pt. Arrived 8 min late HP pre-tx. 5 min 5 mins Pulleys flex PROM shoulder flex PROM shoulder IR PROM shoulder ER Table Slides flex Cane AAROM -ext -IR -ER 10 x 3 0sec 5 x 3 0sec 5 x 3 0sec 15 x 5 sec 10x30 sec 10x30 sec 10x30 sec Held time No time 15 x 5 sec 10x30 sec 10x30 sec 10x30 sec 10x 10x 10x 10x-supine IFC 10 min 10 min 10 mins Progress Note/Re-Cert * Lorie Castañeda PTA - 04/12/2024 10:45 AM CDT Images from the original note were not included. Physical Therapy Visit/Daily Note 04/12/2024 Barbara Chakraborty 1950 ICD-10-CM 1. Left shoulder pain, unspecified chronicity M25.512 DEMETRI NARANJO [employer] Utilized: NO Patient is identified by name and date of on this visit. Subjective: Pt reports feeling better.following last visit. Pt states that she takes Tylenol as needed for painrelief. She states that she took none prior to therapy today. Patient states that she will sleep fairly well in her bed but not on her left side. She states that she is noting less pain in her shoulder since last visit. Pt is reporting continued difficulty with cooking,getting dressed,reaching behin d her back and up overhead. Pain today is 3/10 and with exercises at end ranges pain went up to a 4-5/10. Changes since last visit include Slight improvement. Objective: Objective Measurement/Observation: Pt brought into therapy by wheelchair by daughter. Patient needslight to min assist of 1 for transitional movements and on and off table. Patient stands with a flexed trunk and is encouraged to straighten her back with tactile cues. left Shoulder PROM: left Supine: Flexion: 112?? Abduction: ---?? Internal Rotation: 55?? External Rotation: 15?? Rotations measured at 45 degrees of abduction. Pt demonstrates difficulty relaxing and guarding secondary to pain in her left shoulder with PROM. Patient states that she is noting some tremors in her right hand that she has not experienced. Patient states that she does have Parkinson's but it has not affected her right that she knows of. Explained to daughter about the hand tremors on right hand. Specific exercises and treatment interventions are outlined on exercise worksheet document. Treatment Performed on This Visit: Manual Therapy (body part and techniques): PROM to left shoulder Therapeutic Procedure/Exercise: refer to exercise flowsheet. Modalities: interferential E-stim, moist heat, and HP prior to therapy . HEP given: added table slides,cane standing extension,IR and supine ER . Patient education: patient asked why she needed to do the exercises and explained to patient if nother arm would become more stiff and that she wanted to be able to get dressed and cook again on herown . Assessment: The patient demonstrated a fair response to today's treatment as evidenced by these objective findings: improved ROM and completion of exercises. Pt tolerates exercises and functional activity withinavailable range of motion and tactile cues for transitional movement and performing exercises correctly . The patient is making expected progress toward STG # 1,2 and 3 as evidenced by changes in improved left shoulder ROM and mobility, progression of exercises, and updated HEP. .The patient continues to demonstrate deficits with UE strength and endurance and mobility. Short-Term Goals:to be met by 04/13/24 Patient will be [...] Patient Goal: regain normal use of shoulder Plan: Patient would benefit from the following modification on next visit: Continue to progress as tolerated with current POC. Recommend continued therapy to focus on mobility of left shoulde.. Lorie Castañeda PTA [facility] ATTENTION PHYSICIAN If you are [...] (Latest Contact Info) Description 07/13/2024 9:00 AM EMERGENCY MEDICAL DISPATCHER Hospital Encounter [facility] [address] [place] [address] Jaya Grier MD [address] [facility] [address] [place] [address] 07/13/2024 9:00 AM EMERGENCY MEDICAL DISPATCHER - 07/13/2024 9:30 AM EMERGENCY MEDICAL DISPATCHER Surgery [facility] [address] [place] [address] Jaya Grier MD [address] [facility] [address] [place] [address] ESOPHAGOGASTRODUODENOSCOPY Scheduled Procedures Name Priority Associated Diagnoses Date/Ti me ESOPHAGOGASTRODUODENOSCOPY Anemia, unspecified type Gastritis without bleeding, unspecified chronicity, unspecified gastritis type 07/13/2024 9:00 AM EMERGENCY MEDICAL DISPATCHER COLONOSCOPY Iron deficiency anemia due to chronic blood loss documented as of this encounter Visit Diagnoses Diagnosis Left shoulder pain, unspecified chronicity- Primary Anemia, unspecified type Gastritis without bleeding, unspecified chronicity, unspecified gastritis type documented in this encounter 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 06/26/2024 3:05 AM EMERGENCY MEDICAL DISPATCHER documented as of this encounter Care Teams Burial Needs Salesperson Relationship Specialty Start Date End Date Cherelle Corcoran MD PCP - General Family Medicine 08/30/19 Mark Queen MD Consulting Physician Infectious Diseases 01/10/20 Rudolph Welch MD [address] [facility] [address] [place] [address] Consulting Physician Infectious Diseases 12/05/22 Markie Ryan MD [address] [facility] [address] [place] [address] Consulting Physician Nephrology 12/05/22 Dulce Vega RN [address] [place] [address] [address] [place] [address] Transmitter Supervisor 10/07/23 05/03/24 [place] [address] [address] Consulting Physician Nephrology 10/22/23 Jaya Grier MD [address] [facility] [place] [address] [place] [address] Consulting Physician Gastroenterology 02/01/24 documented as of this encounter
--- OUTSIDE RECORDS SUMMARY | 2024-07-04 04:01 | XMS_ITS | Encounter Summary ---
Author Organization [facility] Healthcare Address [address] [place] [address] Care Team Providers Care Cartridge Feeder Name Role Phone Cherelle Corcoran MD Primary Care Pro vider Mark Queen MD Unavailable [phone] Rudolph Welch MD Unavailable Markie Ryan MD Unavailable Dulce Vega RN Unavailable [phone] Jimbo Strauss MD Unavailable [phone] Jaya Grier MD Unavailable Reason for Visit * Reason Onset Date Comments No Show 04/05/2024 Encounter Details Date Type Department Care Team (Late st Contact Info) Description 04/05/2024 Documentation [facility] Hand & Shoulder [address] [address] Cesar Angeles PT No Show Social History [...] doctor or pharmacy Often 01/20/2024 [facility] Utilities Answer Date Recorded In the past 12 months has e [employer], [email or web address], oil, or water [employer] threatened to shut off services in your [...] often do you attend chur ch or methodist services? More than 4 times per year [...] in a senior living (including now)? No 02/01/2024 Personal Safety Answer Date Recorded Have you ever been in or are you currently in a harmful physical or emotional relationship or is someone making you feel afraid or unsafe? Denies 03/01/2024 Comments No Sex and Gender Information Value Date Recorded Sex Assigned at Not on file Legal Sex Female 9:03 AM ANALYTICS LEAD Gender Identity Female 02/08/2020 6:39 PM CDT Sexual Orientation Not on file documented as of this encounter Progress Notes * Cesar Angeles, PT - 04/05/2024 10:57 AM CDT Pt. Did not show for today's visit. I called, but got no answer. documented in this encounter Plan of Treatment Upcoming Encounters Date Type Department Care Team (Latest Contact Info) Description 07/13/2024 9:00 AM ANALYTICS LEAD Hospital Encounter [facility] [address] [place] [address] Jaya Grier MD [address] [facility] [address] [place] [address] 07/13/2024 9:00 AM ANALYTICS LEAD - 07/13/2024 9:30 AM ANALYTICS LEAD Surgery [facility] [address] [place] [address] Jaya Grier MD [address] 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 [address] [place] [address] Consulting Physician Infectious Diseases 12/05/22 Markie Ryan MD [address] [facility] [address] [place] [address] Consulting Physician Nephrology 12/05/22 Dulce Vega, RN [address] [place] [address] [address] [place] [address] Still Operator 10/07/23 05/03/24 [place] [address] [facility] [address] [place] [address] Consulting Physician Nephrology 10/22/23 Jaya Grier MD [address] [facility] [address] [place] [address] Consulting Physician Gastroenterology 02/01/24 documented as of this encounter
--- OUTSIDE RECORDS SUMMARY | 2024-07-04 04:01 | XMS_ITS | Encounter Summary ---
Author Organization [facility] Healthcare Address [address] [place] [address] Care Team Providers Care Sewer Pipe Cleaner Name Role Phone Cherelle Corcoran MD Primary Care Pro vider Mark Queen MD Unavailable [phone] Rudolph Welch MD Unavailable [phone] Markie Ryan MD Unavailable Dulce Vega RN Unavailable [phone] Jimbo Strauss MD Unavailable [phone] Jaya Grier MD Unavailable Encounter Details Date Type Department Care Team (Late st Contact Info) Description 03/21/2024 Documentation [facility] OP Physical Therapy [address] [address] Serena Isaac, PT Social History Tobacco Use Types Packs/Day Years [...] materials from doctor or pharmacy Often 01/20/2024 [facility] Utilities Answer Date Recorded In the [...] often do you attend chur ch or jain services? More than 4 times per year 02/01/2024 Do you belong to any clubs o r organizations such as scientologist groups, unions, fraternal or athletic groups, or [...] any time in the past 12 m [facility], were you homeless or living in [...] on file Legal Sex Female 9:03 AM DISTRIBUTION A CLASS LINEMAN Gender Identity Female 02/08/2020 6:39 PM CDT Sexual Orientation Not on file documented as of this encounter Progress Notes * Serena Isaac, PT - 03/21/2024 10:22 AM CDT Images from the original note were not included. DISCHARGE SUMMARY This patient has been discharged from prior OUTPATIENT PHYSICAL THERAPY services for the diagnosis of ICD-10-CM 1. Left shoulder pain, unspecified chronicity M25.512 due to lack of compliance with attendance/did not return for additional treatment. Please refer to prior treatment/visit notes from that time period for objective findings and goal progress. NOTE: the patient did not receive treatment on the date this note was written. Serena Isaac, PT [facility] documented in this encounter Plan of Treatment Upcoming Encounters Date Type Department Care Team (Latest Contact Info) Description 07/13/2024 9:00 AM DISTRIBUTION A CLASS LINEMAN Hospital Encounter [facility] [address] [place] [address] Jaya Grier MD [address] [place] [address] [address] [place] [address] 07/13/2024 9:00 AM DISTRIBUTION A CLASS LINEMAN - 07/13/2024 9:30 AM DISTRIBUTION A CLASS LINEMAN Surgery [facility] [address] [place] [address] Jaya Grier MD [address] [place] [address] [address] [place] [address] ESOPHAGOGASTRODUODENOSCOPY Scheduled Procedures Name Priority Associated Diagnoses Date/Ti mt ESOPHAGOGASTRODUODENOSCOPY Anemia, unspecified type Gastritis without bleeding, unspecified chronicity, unspecified gastritis type 07/13/2024 9:00 AM DISTRIBUTION A CLASS LINEMAN COLONOSCOPY Iron deficiency anemia due to chronic blood loss documented as of this encounter Visit Diagnoses Not on filedocumented in this encounter 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 06/26/2024 3:05 AM DISTRIBUTION A CLASS LINEMAN documented as of this encounter Care Teams Sewer Pipe Cleaner Relationship Specialty Start Date End Date Cherelle Corcoran MD PCP - General Family Medicine 08/30/19 Mark Queen MD Consulting Physician Infectious Diseases 01/10/20 Rudolph Welch MD [address] [facility] [address] [place] [address] Consulting Physician Infectious Diseases 12/05/22 Markie Ryan MD [address] [facility] [address] [place] [address] Consulting Physician Nephrology 12/05/22 Dulce Vega, ALIREZA [address] [place] [address] [address] [place] [address] Human Service Technician 10/07/23 05/03/24 [place] [address] [facility] [address] [place] [address] Consulting Physician Nephrology 10/22/23 Jaya Grier MD [address] [facility] [address] [place] [address] Consulting Physician Gastroenterology 02/01/24 documented as of this encounter
--- OUTSIDE RECORDS SUMMARY | 2024-07-04 04:02 | XMS_ITS | Encounter Summary ---
Author Organization [facility] Healthcare Address [address] [place] [address] Care Team Providers Care Pathology Supervisor Name Role Phone Cherelle Corcoran MD Primary Care Pro vider Mark Queen MD Unavailable [phone] Rudolph Welch MD Unavailable Markie Ryan MD Unavailable [phone] Dulce Vega RN Unavailable Jimbo Strauss MD Unavailable Jaya Grier MD Unavailable Reason for Visit * Reason Comments Hospital Follow Up Encounter Details Date Type Department Care Team (Late st Contact Info) Description 02/11/2024 10:00 AM CDT Office Visit [facility] Cardiology [address] [place] [address] [place] [phone] Lupe Draper, TEACHER EDUCATION INSTRUCTOR [address] [place] [address] Mixed hyperlipidemia (Primary Dx); Uncontrolled hypertension; Chronic diastolic congestive heart failure (CMS/HCC) (HCC); Left shoulder pain, unspecified chronicity Social History [...] materials from doctor or pharmacy Often 01/20/2024 [facility] Utilities Answer Date Recorded In the past 12 months has th e electric, gas, oil, or water [employer] threatened to shut off services in your [...] you have a drink containing alcohol? Never 01/30/2024 Q2: How many drinks containi ng alcohol do you have on a typical day when you are drinking? Patient does not drink Q3: How often do you have si x or more drinks on one occasion? Never 01/30/2024 Overall Financial Resource Strain (CARDIA) Answe r [...] place to sleep or slept in a skilled nursing (including now)? No 10/30/2023 Housing Stability Vital [...] in the past 12 m [facility], were you homeless or living in a skilled nursing (including now)? No 02/01/2024 Personal Safety Answer Date Recorded Have you ever been in or are you currently in a harmful physical or emotional relationship or is someone making you feel afraid or unsafe? Denies 01/30/2024 Comments No Sex and Gender Information Value Date Recorded Sex Assigned at Not on file Legal Sex Female 9:03 AM ELEMENTARY SPECIAL EDUCATION TEACHER Gender Identity Female 02/08/2020 6:39 PM CDT Sexual Orientation Not on file documented as of this encounter Last Filed Vital Signs Vital Sign Reading Time Taken Comments Blood Pressure 142/60 02/11/2024 11:33 AM CDT Pulse 89 02/11/2024 10:20 AM CDT Temperature - - Respiratory Rate - - Oxygen Saturation 99% 02/11/2024 10:20 AM CDT Inhaled Oxygen Concentration - - Weight 62.1 kg (137 lb) 02/11/2024 10:20 AM CDT Height 157.5 cm (5' 2.01 ) 02/11/2024 10:20 AM C DT Body Mass Index 25.05 02/11/2024 10:20 AM CDT documented in this encounter Ordered Prescriptions Prescription Sig Dispense Quantity Refills Last Filled Start Date End Date carvediloL (COREG) 6.25 mg tabletIndications: Uncontrolled hypertension,Chron ic diastolic congestive heart failure ([facility]) ([facility]) Take 1 tablet (6.25 mg total) by mouth 2 (two) times a day with meals 180 tablet 3 02/11/2024 05/16/2024 documented in this encounter Progress Notes * Lupe Draper, JARAD - 02/11/2024 10:00 AM CDT Cardiology Clinic Note Patient Name: Barbara Chakraborty : 1950 Date of Service: 02/11/2024 Referring: Dr. 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 01/05/2024 ESRD on dialysis ([facility]) 12/20/2023 Anemia of renal disease 12/20/2023 Syncope, unspecified syncope type 12/19/2023 Leukocytosis 12/19/2023 Renal disorder Left shoulder pain 12/11/2023 Arthropathy of left shoulder 12/11/2023 CKD (chronic kidney disease) stage 4, GFR 15-29 ml/min ([facility]) ([facility]) 12/07/2023 Tinnitus of both ears 11/04/2023 Mixed conductive and sensorineural hearing loss of both ears 11/04/2023 Dysfunction of both eustachian tubes 11/04/2023 ESRD on hemodialysis ([facility]) ([facility]) 11/02/2023 AMS (altered mental status) 10/30/2023 Leg swelling 10/07/2023 Bandemia 12/20/2022 Shortness of breath 12/13/2022 Chronic diastolic congestive heart failure ([facility]) ([facility]) 12/06/2022 Bibasilar consolidations 12/06/2022 Movement disorder 12/06/2022 Abnormal urinalysis 11/07/2022 Anemia in chronic kidney disease, on chronic dialysis ([facility]) 10/10/2022 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[facility]) 08/14/2022 Pulmonary nodule 11/16/2021 Physical deconditioning 11/15/2021 Toe necrosis ([facility]) ([facility]) 10/07/2021 Volume overload 09/06/2021 Retention of urine, unspecified 08/22/2021 Unspecified osteoarthritis, unspecified site 08/22/2021 Unsteadiness on feet 08/22/2021 Weakness 08/22/2021 Late onset Alzheimer's dementia without behavioral disturbance ([facility]) 08/19/2021 Encounter for Medicare annual wellness exam 01/08/2021 Schizoaffective disorder, bipolar type ([facility]) ([facility]) 10/10/2020 Mixed hyperlipidemia 04/03/2020 Iron deficiency anemia 04/02/2020 Gastroesophageal reflux disease without esophagitis 04/02/2020 History of amputation of toe ([facility]) ([facility]) 01/19/2020 Uncontrolled hypertension 12/13/2019 Type 2 diabetes mellitus with diabetic neuropathy, with long-term current use of insulin ([facility]) 08/30/2019 Diabetic neuropathy ([facility]) CHIEF COMPLAINT: Chief Complaint Patient presents with Hospital Follow Up HISTORY OF PRESENT ILLNESS: It was a pleasure to see Ms. Chakraborty in the office today for follow-up of the above-mentioned cardiovascular issues. We have reviewed interval outside provider notes, hospital admissions, and emergency room encounter since the patient's last visit. The patient has a significant history of the above diagnoses. She was recently hospitalized with heart failure with preserved LV function, hypertension and dyslipidemia. she has had no cardiac catheterization, but a stress test from 2022 did show mild coronary calcification. She was seen in consultation by Dr. Lindo. Her echocardiogram showed normal LV function.. Her cardiac enzymes were mildly elevated but flat and it was felt that this was due to her kidney disease. Since that visit to the hospital she was [facility] she wasfound to have a upper GI bleed requiring blood transfusion. She continues to have left arm shoulderpain, and today on presentation she continues to have that shoulder pain which is reproducible with pressure to the left scapula. She denies any chest pain, dyspnea, lightheadedness, dizziness, syncope, palpitations, lower extremity edema, orthopnea, or PND. REVIEW OF SYSTEMS Review of systems per HPI and otherwise all other review of systems negative. SUMMARY OF DIAGNOSES AND PRIOR STUDIES Echo: 10/30/2023 The left ventricle is normal in size. There is mild concentric left ventricular hypertrophy. Ejection Fraction = 60-65%. Left ventricular systolic function is normal. Grade I diastolic dysfunction, (abnormal relaxation pattern). A bubble study shows no evidence of intracardiac hsted-in-rdlw shunting, i.e. no patent foramen ovale (PFO). Trace aortic regurgitation. Stress test: 08/05/2022 Normal exercise and rest myocardial perfusion. 2. Normal left ventricular size and systolic function. 3. Mild coronary artery calcifications. Cardiac cath: None in system MEDICATIONS Current Outpatient Medications: acetaminophen 500 mg capsule, Take 2 capsules (1,000 mg total) by mouth 3 (three) times a day as needed for mild pain (pain scale 1-4), Disp: , Rfl: aspirin 81 mg chewable tablet, , Disp: , Rfl: atorvastatin (LIPITOR) 40 mg tablet, Take 1 tablet (40 mg total) by mouth nightly, Disp: 30 tablet,Rfl: 11 benzonatate (TESSALON) 100 mg capsule, Take 1 capsule (100 mg total) by mouth 3 (three) times a dayas needed for cough, Disp: 42 capsule, Rfl: 0 benztropine (COGENTIN) 2 mg tablet, Take 1 tablet (2 mg total) by mouth daily, Disp: 30 tablet, Rfl: 0 blood-glucose sensor (FreeStyle Madhav 3 Sensor) device, Use for continuous glucose monitoring. Change sensor every 14 days, Disp: 6 each, Rfl: 3 calcium acetate,phosphat bind, (PHOSLO) 667 mg capsule, TAKE 1 CAPSULE(667 MG) BY MOUTH THREE TIMESDAILY WITH MEALS, Disp: 270 capsule, Rfl: 0 docusate sodium (COLACE) 100 mg capsule, Take [...] Disp: , Rfl: flash glucose scanning reader misc, Use Madhav 3 reader to scan Madhav 3 sensor, Disp: 1 each, Rfl: 0 flash glucose sensor (FreeStyle Madhav 2 Sensor) kit, Use to continually monitor glucose, change every 14 days, Disp: 6 kit, Rfl: 3 fluticasone propionate (FLONASE) 50 mcg/actuation nasal spray, Administer 2 sprays into each nostril daily as needed for rhinitis, Disp: , Rfl: FreeStyle Madhav 3 Sunray misc, Use Madhav 3 reader to scan Madhav 3 sensor, Disp: , Rfl: gabapentin (NEURONTIN) 100 mg capsule, Take 100 mg 3 times per week after hemodialysis., Disp: 12 capsule, Rfl: 1 hydrALAZINE (APRESOLINE) 25 mg tablet, Take 1 tablet (25 mg total) by mouth 2 (two) times a day, Disp: 60 tablet, Rfl: 1 insulin glargine 100 unit/mL (3 mL) pen [...] MOUTH DAILY, Disp: 90 tablet, Rfl: [address] (PROTONIX) 40 mg EC tablet, Take 1 tablet (40 mg total) by mouth 2 (two) times a day, Disp: 60 tablet, Rfl: 1 pen needle, diabetic (Easy Touch) 32 gauge x 5/32 needle, USE DIRECTED FOUR TIMES DAILY, Disp: 100 each, Rfl: 3 polyethylene glycol (MIRALAX) 17 gram/dose bulk powder, Take 17 g by mouth daily as needed (Constipation), Disp: 595 g, Rfl: 0 risperiDONE (RisperDAL) 2 mg tablet, Take 1 tablet (2 mg total) by mouth nightly, Disp: 30 tablet, Rfl: 0 sucralfate (CARAFATE) 1 gram tablet, Take 1 tablet (1 g total) by mouth 4 (four) times a day, Disp:120 tablet, Rfl: 1 carvediloL (COREG) 6.25 mg tablet, Take 1 tablet (6.25 mg total) by mouth 2 (two) times a day with meals, Disp: 180 tablet, Rfl: 3 traMADoL (ULTRAM) 25 mg tablet, Take 1 tablet (25 mg total) by mouth every 8 (eight) hours as needed for pain (Patient not taking: Reported on 02/09/2024), Disp: 90 tablet, Rfl: 0 PHYSICAL EXAM: BP 158/68 (BP Location: Left arm, Patient Position: Sitting) Pulse 89 Ht 157.5 cm (5' 2.01 ) Wt 62.1 kg (137 lb) SpO2 99% BMI 25.05 kg/m?? General: Well appearing, No pain or distress, well nourished Respiratory: Clear to ausculation bilaterally; no wheezing/rales/rhonchi Cardiovascular: Regular rhythm, normal S1 and S2. No S3 or S4. No murmurs or rubs. Carotids withoutbruits. JVP not elevated, no lower extremity edema. Gastrointestinal: soft, non-tender abdomen Extremities: no cyanosis or clubbing Psychiatric: normal affect Neurologic: awake/alert, no focal deficits DATA: Resulted in the Past 12 Months 02/01/24 1205 01/31/24 0737 01/30/24 0834 01/29/24 1952 01/05/24200512/29/23200612/26/23 0416 12/25/23 1518 12/25/23 0551 12/24/23 0716 12/23/23 0909 12/22/23 0911 12/21/23 0445 12/20/23 0359 12/19/23 1429 12/03/23 1646 11/17/23 1625 11/03/23 0636 11/02/23 0443 11/01/23 0506 10/31/23 0451 10/30/23 0446 10/29/23 1826 10/27/23 1828 10/22/23 0628 10/19/23 0920 10/17/23 0930 10/10/23 1808 10/08/23 1155 10/06/23 2225 07/27/23 2356 06/30/23 1716 03/18/23 1524 HGB 10.1* 8.5* 9.6* 7.4* 7.9* 8.8* 8.7* 9.3* 8.4* 9.1* 9.9* 8.8* 8.1* 8.9* 10.0* 10.0* 9.3* 8.3* 8.7* 8.8* 8.3* 9.1* 9.1* 10.7* 8.0* 8.8* 8.2* 9.6* 8.9* 9.2* 9.7* 10.2* 11.0* HCT 30.6* 25.8* 28.5* 22.9* 24.3* 28.1* 26.9* 27.7* 26.2* 27.9* 30.2* 27.0* 25.4* 27.0* 30.1* 31.1*28.8* 26.4* 27.2* 27.3* 25.9* 27.7* 26.7* 34.5* 25.2* 27.9* 25.9* 29.6* 29.0* 29.1* 29.9* 32.2* 34.8* WBC 7.9 7.3 9.4 9.0 11.4* 13.4* 14.2* 11.6* 10.0* 11.5* 11.4* 11.5* 12.9* 15.0* 18.2* 13.9* 9.5 10.2* 9.4 13.4* 10.1* 12.1* 12.0* 10.3* 7.8 8.0 8.5 8.9 8.2 9.6 13.5* 9.0 8.5 LABPLAT 269 241 237 322 356 326 277 280 244 263 240 241 232 245 245 281 280 282 250 262 242 268 [id number] 206 259 253 322 311 280 490* 334 287 Resulted in the Past 12 Months 01/31/24 0737 10/31/23 0451 10/30/23 0446 10/08/23 1336 10/08/23 1155 SODIUM 136 < > 141 < > 144 POTASSIUM 4.0 < > 4.3 < > 3.9 CHLORIDE 98 < > 103 < > 109 CO2 26 < > 24 < > 21* ANIONGAP 12 < > 14 < > 14 BUNSER 19 < > 32* < > 52* CREATININE 3.00* < > 3.00* < > 4.42* CALCIUM 8.3* < > 8.6 < > 8.3* MAGNESIUM -- -- 1.7 -- 1.5 < > = values in this interval not displayed. Resulted in the Past 12 Months 01/31/24 0737 10/09/23 0714 10/08/23 1155 ALBUMIN 3.3* < > 3.2* ALKPHOS 76 < > 139* AST 9* < > 15 ALT 10 < > 9 BILITOT 0.2 < > 0.2 BILIDIR -- -- <0.2 < > = values in this interval not displayed. Resulted in the Past 12 Months 01/29/24 1952 10/15/23 0650 APTT 27 36 INR 0.9 1.05 Resulted in the Past 12 Months 12/03/23 1646 10/06/23 2225 NPROBNP 1,122* 607* Lab Results Component Value Date CHOL 118 10/30/2023 CHOL 84 09/10/2021 CHOL 133 02/07/2021 Lab Results Component Value Date HDL 47 10/30/2023 HDL 33 (L) 09/10/2021 HDL 51 02/07/2021 Lab Results Component Value Date LDLCALC 50 10/30/2023 LDLCALC 20 09/10/2021 LDLCALC 53 02/07/2021 Lab Results Component Value Date TRIG 104 10/30/2023 TRIG 153 (H) 09/10/2021 TRIG 147 02/07/2021 I have personally reviewed all available labs and imaging since her last visit. We reviewed recent lab work and results from my recent orders in clinic today. I have personally independently reviewed and interpreted the TTE from 10/30/2023 The left ventricle is normal in size. There is mild concentric left ventricular hypertrophy. Ejection Fraction = 60-65%. Left ventricular systolic function is normal. Grade I diastolic dysfunction, (abnormal relaxation pattern). A bubble study shows no evidence of intracardiac aedsr-sz-yhcj shunting, i.e. no patent foramen ovale (PFO). Trace aortic regurgitation. ASSESSMENT AND PLAN This is a 73 y.o. female who presents to Cardiology clinic in follow-up for the following issues: Diagnoses and all orders for this visit: Mixed hyperlipidemia (Primary) - Lipid panel; Future - Comprehensive metabolic panel; Future She continues on atorvastatin 40 mg daily. No myalgias. No recent lipid panel, we will obtain labs within 3 months. Uncontrolled hypertension - carvediloL (COREG) 6.25 mg tablet; Take 1 tablet (6.25 mg total) by mouth 2 (two) times a day with meals - Lipid panel; Future - Comprehensive metabolic panel; Future Her blood pressure is elevated today at 158/68. Recheck shows a systolic pressure of 142. Given herunderlying chronic kidney disease would like her pressures to be under 130. We will increase her carvedilol to 6.25 mg twice daily. She will continue her amlodipine 60 mg daily, hydralazine 25 mg twice daily. Chronic diastolic congestive heart failure (CMS/HCC) (HCC) - carvediloL (COREG) 6.25 mg tablet; Take 1 tablet (6.25 mg total) by mouth 2 (two) times a day with meals - Lipid panel; Future - Comprehensive metabolic panel; Future Appears euvolemic, continue current medications. Left shoulder pain, unspecified chronicity Patient has left shoulder pain, reproducible on palpation. Unlikely to be any cardiac issue. No further workup at this time. Discussion per problem: Instructed daughter to increase the carvedilol to 2 pills twice daily to use her old script before filling her new 1 for the increased dose. DISPOSITION We will plan to see Ms. Chakraborty back in clinic in 3 months time or sooner if needed. Lupe Draper NP Structural and Interventional Cardiology 11:23 AM This note is dictated via a voice recognition software, despite proof reading, typographical errorsare possible. Cosigned by Santo Vail MD at 02/11/2024 4:02 PM CDT documented in this encounter Plan of Treatment Upcoming Encounters Date Type Department Care Team (Latest Contact Info) Description 07/13/2024 9:00 AM ELEMENTARY SPECIAL EDUCATION TEACHER Hospital Encounter [facility] [address] [place] [address] Jaya Grier MD [address] [place] [address] 07/13/2024 9:00 AM ELEMENTARY SPECIAL EDUCATION TEACHER - 07/13/2024 9:30 AM ELEMENTARY SPECIAL EDUCATION TEACHER Surgery [facility] [address] [place] [address] Jaya Grier MD [facility] [facility] [facility] [address] [place] [address] ESOPHAGOGASTRODUODENOSCOPY Scheduled Orders Name Type Priority Associated Diagnoses Orde r Schedule Comprehensive metabolic panel Lab Routine Mixed hyperlipidemia Uncontrolled hypertension Chronic diastolic congestive heart failure (CMS/HCC) ([facility]) Expected: 05/13/2024, Expires: 02/10/2025 Scheduled Procedures Name Priority Associated Diagnoses Date/Ti me ESOPHAGOGASTRODUODENOSCOPY Anemia, unspecified type Gastritis without bleeding, unspecified chronicity, unspecified gastritis type 07/13/2024 9:00 AM ELEMENTARY SPECIAL EDUCATION TEACHER COLONOSCOPY Iron deficiency anemia due to chronic blood loss documented as of this encounter Visit Diagnoses Diagnosis Mixed hyperlipidemia- Primary Uncontrolled hypertension Chronic diastolic congestive heart failure (CMS/HCC) ([facility]) Left shoulder pain, unspecified chronicity Anemia, unspecified type Gastritis without bleeding, unspecified chronicity, unspecified gastritis type documented in this encounter Discontinued Medications Medication Sig Discontinue Reason Start Date End Da te carvediloL (COREG) 3.125 mg tablet Take 1 tablet (3.125 mg total) by mouth 2 (two) times a day with meals 12/18/2023 02/11/2024 documented as of this encounter 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 06/26/2024 3:05 AM ELEMENTARY SPECIAL EDUCATION TEACHER documented as of this encounter Care Teams Pathology Supervisor Relationship Specialty Start Date End Date Cherelle Corcoran MD PCP - General Family Medicine 08/30/19 Mark Queen MD Consulting Physician Infectious Diseases 01/10/20 Rudolph Welch MD [address] [place] [address] Consulting Physician Infectious Diseases 12/05/22 Markie Ryan MD [address] [place] [address] Consulting Physician Nephrology 12/05/22 Dulce Vega RN [address] [place] [address] [address] [place] [address] Print Operator 10/07/23 05/03/24 [place] [address] [facility] [address] [place] [address] Consulting Physician Nephrology 10/22/23 Jaya Grier MD [address] [facility] [facility] [address] [address] [place] [address] Consulting Physician Gastroenterology 02/01/24 documented as of this encounter
--- OUTSIDE RECORDS SUMMARY | 2024-07-04 04:02 | XMS_ITS | Encounter Summary ---
Author Organization [facility] Healthcare Address [address] [place] [address] Care Team Providers Care Rapier Insertion Loom Fixer Name Role Phone Duane Callahan MD Primary Care Pro vider Mark Queen MD Unavailable [phone] Rudolph Welch MD Unavailable [phone] Markie Ryan MD Unavailable [phone] Dulce Vega RN Unavailable [phone] Jimbo Strauss MD Unavailable [phone] Jaya Grier MD Unavailable Reason for Visit * Reason Comments PT Treatment * Physical Therapy (Routine) - Closed Specialty Diagnoses / Procedures Referred By Contac t Referred To Contact Physical Therapy Diagnoses Acute pain of left shoulder Perico Raphael, ANAY [address] [facility] [address] Phone: tel: fax: [address] [address] Referral ID Status Reason Start Date Expiration Date V isits Requested Visits Authorized [id number] Closed Evaluate and Treat 12/11/2023 06/21/2024 16 30 Encounter Details Date Type Department Care Team (Late st Contact Info) Description 02/16/2024 10:45 AM CDT Therapy [facility] Medical Office Bldg 1 OP Physical Therapy [address] [address] Cheri Benítez, 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 More than 4 times per year 02/01/2024 Do you belong to any clubs o r organizations such as yarsanism groups, unions, fraternal or athletic groups, or [...] place to sleep or slept in a penitentiary (including now)? No 10/30/2023 Housing Stability Vital [...] in the past 12 m [facility], were you homeless or living in a penitentiary (including now)? No 02/01/2024 Personal Safety Answer Date Recorded Have you ever been in or are you currently in a harmful physical or emotional relationship or is someone making you feel afraid or unsafe? Denies 01/30/2024 Comments No Sex and Gender Information Value Date Recorded Sex Assigned at Not on file Legal Sex Female 9:03 AM PHOTOGRAPHIC EQUIPMENT INSPECTOR Gender Identity Female 02/08/2020 6:39 PM CDT Sexual Orientation Not on file documented as of this encounter Progress Notes * Cheri Benítez PTA - 02/16/2024 10:45 AM CDT ICD-10-CM 1. Left shoulder [...] 03/22/2024 (8 weeks) Date Date Date Date 01/26/24 02/09/24 02/11/24 02/16/24 Visit Number 1 2 3 4 ADDITIONAL HEP SHEETS ISSUED NuStep Arms LV 3 x 5 mins L3 x 5 min A - 10 L3 x 5 min A-10 Pulleys Flexion 2' 2' 2' 2' Pulleys ABD 2' 2' 2 NT Supine wand flexion 15 15' 10x 10x Supine wand ER / IR 15 15' 2 x 10 x20 SCap squeezes 15 20' 2 x 10 2 x 10 SL ER - LEFT 10 2 x 10 x10 Seated Shoulder Flexion with cane 15x 2 x 10 x10 L shoulder PROM 10' 10' declined Declined Progress Note/Re-Cert * Cheri Benítez PTA - 02/16/2024 10:45 AM CDT Images from the original note were not included. Physical Therapy Visit/Daily Note 02/16/2024 Barbara Chakraborty 1950 ICD-10-CM 1. Left shoulder pain, unspecified chronicity M25.512 DUANE CALLAHAN Call Specialist Services Utilized: NO Patient is identified by name and date of on this visit. Subjective: Pt reports no changes to her shoulder and continues to be in pain . Pts family member accompanied patient this visit reporting patient take OTC Tylenol BID and uses heat for pain relief with minimalchanges. Pt is reporting continued difficulty with constant shoulder pain. Pain today is 9/10. Changes since last visit include unchanged. Objective: Objective Measurement/Observation: Pt responds appropriately to questions, no grimacing with AAROM or AROM to left shoulder with Nustep or cane exercises. No increased pain noted or visibly present during activity as long as patient was given right to perform exercises independently, does not care to be touched by clinician for tactile cues. Gait: with elbow flexion bilaterally 15 to 30 degrees. Exercises: performed x 2-3 reps with correct ROM given with verbal instruction then tends to substitute movement with only elbow flexion vs shoulder flexion or ER without re-direction. Palpation: attempted PROM with STM to left shoulder, patient begins guarding and grimacing away from clinician. Held this date. Specific exercises and treatment interventions are outlined on exercise worksheet document. Treatment Performed on This Visit: Manual Therapy (body part and techniques): NT Therapeutic Procedure/Exercise:L shoulder mobility Modalities:nt HEP given: established, voices increased compliance since last session Assessment: The patient demonstrated a fair response to today's treatment as evidenced by these objective findings: tolerance to left shoulder A/AAROM with independence provided without increased pain voices or visibly noted. The patient is making expected progress toward STG # 1-3 and LTG # 1-3 as evidenced by changes in slow linear shoulder mobility and no increased pain noted with activity in clinic this date. The patient continues to demonstrate deficits with pain control and improved left shoulder mobility for OH function and strength for reaching and grasping. Plan: Patient would benefit from the following modification on next visit: continue to progress within the POC as pt tolerates. Recommend continued therapy to focus on improved mobility of L shoulder. Cheri Benítez PTA [facility] ATTENTION PHYSICIAN If you [...] (Latest Contact Info) Description 07/13/2024 9:00 AM PHOTOGRAPHIC EQUIPMENT INSPECTOR Hospital Encounter [facility] [address] [place] [address] Jaya Grier MD [address] [place] [address] [address] [place] [address] 07/13/2024 9:00 AM PHOTOGRAPHIC EQUIPMENT INSPECTOR - 07/13/2024 9:30 AM PHOTOGRAPHIC EQUIPMENT INSPECTOR Surgery [facility] [address] [place] [address] Jaya Grier MD [address] [place] [address] [address] [place] [address] ESOPHAGOGASTRODUODENOSCOPY Scheduled Procedures Name Priority Associated Diagnoses Date/Ti wy ESOPHAGOGASTRODUODENOSCOPY Anemia, unspecified type Gastritis without bleeding, unspecified chronicity, unspecified gastritis type 07/13/2024 9:00 AM PHOTOGRAPHIC EQUIPMENT INSPECTOR COLONOSCOPY Iron deficiency anemia due to chronic blood loss documented as of this encounter Visit Diagnoses Diagnosis Left shoulder pain, unspecified chronicity- Primary Anemia, unspecified type Gastritis without bleeding, unspecified chronicity, unspecified gastritis type documented in this encounter 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 06/26/2024 3:05 AM PHOTOGRAPHIC EQUIPMENT INSPECTOR documented as of this encounter Care Teams Rapier Insertion Loom Fixer Relationship Specialty Start Date End Date Duane Callahan MD PCP - General Family Medicine 08/30/19 Mark Queen MD Consulting Physician Infectious Diseases 01/10/20 Rudolph Welch MD [address] [facility] [address] [place] [address] Consulting Physician Infectious Diseases 12/05/22 Markie Ryan MD [address] [facility] [address] [place] [address] Consulting Physician Nephrology 12/05/22 Dulce Vega, ALIREZA [address] [place] [address] [address] [place] [address] Skilled Nursing Professional 10/07/23 05/03/24 [place] [address] [facility] [address] [place] [address] Consulting Physician Nephrology 10/22/23 Jaya Grier MD [address] [facility] [address] [place] [address] Consulting Physician Gastroenterology 02/01/24 documented as of this encounter
--- OUTSIDE RECORDS SUMMARY | 2024-07-04 04:02 | XMS_ITS | Encounter Summary ---
Author Organization [facility] Healthcare Address [address] [place] [address] Care Team Providers Care Blanket Cutter Hand Name Role Phone Cherelle Corcoran MD Primary Care Pro vider Mark Queen MD Unavailable [phone] Rudolph Welch MD Unavailable Markie Ryan MD Unavailable Dulce Vega RN Unavailable Jimbo Strauss MD Unavailable [phone] Jaya Grier MD Unavailable Reason for Visit * Reason Onset Date Comments Cardiac Clearance 02/11/2024 Encounter Details Date Type Department Care Team (Late st Contact Info) Description 02/11/2024 Telephone [facility] Medical Group Cardiology [address] [facility] [address] [place] [address] Santo Vail MD [address] [facility] [address] [place] [address] Cardiac Clearance Social History Tobacco Use Types Packs/Day Years [...] materials from doctor or pharmacy Often 01/20/2024 [facility] Utilities Answer Date Recorded In the [...] often do you attend chur ch or sabianism services? More than 4 [...] on file Legal Sex Female 9:03 AM FURNITURE DESIGNER Gender Identity Female 02/08/2020 6:39 PM CDT Sexual Orientation Not on file documented as of this encounter Miscellaneous Notes * Telephone Encounter - Yoly Tracy MA - 02/12/2024 9:55 AM CDT Clearance letter sent * Telephone Encounter - Santo Vail MD - 02/11/2024 4:14 PM CDT Patient is at overall low cardiac risk during surgery and is well optimized. No further testing is recommended prior to surgery. Team should proceed with surgery if benefits felt to outweigh risks. No medication changes are recommended in the shannon-operative period. * Telephone Encounter - Reina Zee - 02/11/2024 3:55 PM CDT Received cardiac clearance request FROM: Jaya Grier M.D. FOR: Colonoscopy PROCEDURE SCHEDULED: 03/01/24 LAST OFFICE VISIT: 02/11/24 NEXT OFFICE VISIT: 05/25/24 ANTICOAG: PENDING TESTING: FAX: [phone] PHONE: [phone] documented in this encounter Plan of Treatment Upcoming Encounters Date Type Department Care Team (Latest Contact Info) Description 07/13/2024 9:00 AM FURNITURE DESIGNER Hospital Encounter [facility] GI Lab [address] [place] [address] Jaya Grier MD [address] [place] [address] [address] [place] [address] 07/13/2024 9:00 AM FURNITURE DESIGNER - 07/13/2024 9:30 AM FURNITURE DESIGNER Surgery [facility] GI Lab [address] [place] [address] Jaya Grier MD [facility] [facility] [address] [place] [address] ESOPHAGOGASTRODUODENOSCOPY Scheduled Procedures Name Priority Associated Diagnoses Date/Ti me ESOPHAGOGASTRODUODENOSCOPY Anemia, unspecified type Gastritis without bleeding, unspecified chronicity, unspecified gastritis type 07/13/2024 9:00 AM FURNITURE DESIGNER COLONOSCOPY Iron deficiency anemia due to chronic blood loss documented as of this encounter Visit Diagnoses Not on filedocumented in this encounter 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 06/26/2024 3:05 AM FURNITURE DESIGNER documented as of this encounter Care Teams Blanket Cutter Hand Relationship Specialty Start Date End Date Cherelle Corcoran MD PCP - General Family Medicine 08/30/19 Mark Queen MD Consulting Physician Infectious Diseases 01/10/20 Rudolph Welch MD [address] [facility] [address] [place] [address] Consulting Physician Infectious Diseases 12/05/22 Markie Ryan MD [address] [facility] [address] [place] [address] Consulting Physician Nephrology 12/05/22 Dulce Vega RN [address] [place] [address] [address] [place] [address] Oil And Gas Recruiter 10/07/23 05/03/24 [place] [address] [address] [facility] [facility] [address] [place] [address] Consulting Physician Nephrology 10/22/23 Jaya Grier MD [address] [facility] [address] [place] [address] Consulting Physician Gastroenterology 02/01/24 documented as of this encounter
--- OUTSIDE RECORDS SUMMARY | 2024-07-04 04:02 | XMS_ITS | Encounter Summary ---
Author Organization [facility] Healthcare Address [address] [place] [address] Care Team Providers Care Full Stack Web Developer Name Role Phone Cherelle Corcoran MD Primary Care Pro vider Mark Queen MD Unavailable [phone] Rudolph Welch MD Unavailable Markie Ryan MD Unavailable [phone] Dulce Vega RN Unavailable [phone] Jimbo Strauss MD Unavailable [phone] Jaya Grier MD Unavailable Reason for Referral * Diagnostic Imaging (Routine) - Authorized Specialty Diagnoses / Procedures Referred By Contac t Referred To Contact Diagnoses Difficulty swallowing pills Dysphasia Procedures [place] Modified Barium Swallow W Video Cherelle Corcoran MD [address] [place] [address] Phone: tel: fax: [address] [address] Referral ID Status Reason Start Date Expiration Date V isits Requested Visits Authorized [id number] Authorized 02/10/2024 03/11/2025 1 1 * Speech Pathology (Routine) - Closed Specialty Diagnoses / Procedures Referred By Maryse lama Referred To Contact Speech Therapy Diagnoses Difficulty swallowing pills Dysphasia Speech disturbance, unspecified type Cherelle Corcoran MD [address] [place] [address] Phone: tel: fax: [facility] OP Speech Therapy [address] [address] Phone: tel: fax: Referral ID Status Reason Start Date Expiration Date V isits Requested Visits Authorized [id number] Closed Evaluate and Treat 03/21/2024 06/21/2024 24 11 Question Answer PTRFR GREENSKEEPER SUPERVISOR Evaluate and Treat Treatment Type Speech Evaluation/Treatment, Dysphagia Evaluation/Treatment Therapy options discussed with patient? Yes Location provided for therapy services is: Patient requested/Patient preferred Please select the performing region: [facility] [[id number]] # of visits: 24 Reason for Visit * Reason Onset Date Comments Additional Services Or Orders 02/09/2024 Encounter Details Date Type Department Care Team (Late st Contact Info) Description 02/09/2024 Telephone [facility] Primary Care at [address] [address] Cherelle Corcoran MD [address] [place] [address] Additional Services Or Orders Social History Tobacco Use Types Packs/Day Years [...] materials from doctor or pharmacy Often 01/20/2024 [facility] Utilities Answer Date Recorded In [...] often do you attend chur ch or congregational services? More than 4 times per year [...] on file Legal Sex Female 9:03 AM METAL FURNITURE POLISHER Gender Identity Female 02/08/2020 6:39 PM CDT Sexual Orientation Not on file documented as of this encounter Miscellaneous Notes * Telephone Encounter - Eugenio Laureano - 02/10/2024 3:21 PM CDT Call Back Caller???s Concern: Spoke with patients daughter Areli calling to clarify if she needed to contact anyone regarding orders for barium swallow or if had already started process. Confirmed referral for test and speech therapy was started today but not showing contact information she declined call back at this time and stated she will awaiting referring dept to reach out to her Does message need to be routed? No * Telephone Encounter - Sandy Mota MA - 02/10/2024 8:07 AM CDT Referral placed for speech therapy. Barium swallow test ordered as well. Pt daughter aware. * Telephone Encounter - Jerel Faith - 02/09/2024 4:30 PM CDT Additional Services or Orders Type of Service Requested:Speech Therapy Duration/Number of Visits: NA Is a verbal order acceptable? NA Reason for Request (e.g. condition/symptom, date of COVID exposure if applicable): Patients daughter is requesting orders for speech therapy Details Regarding Additional Services (e.g. type of home health, type of equipment, type of test, etc.): Speech therapy Where will services be performed? (if outside of the practice, facility name, address, phone/fax offacility): [facility] Additional Comments: Patient's daughter requesting call back Does message need to be routed? Yes-Action Needed * Telephone Encounter - Jerel Faith - 02/09/2024 4:28 PM CDT Additional Services or Orders Type of Service Requested:Testing Reason for Request (e.g. condition/symptom, date of COVID exposure if applicable): Barium Swallow Test Details Regarding Additional Services (e.g. type of home health, type of equipment, type of test, etc.): Patient has problems with taking her medication Where will services be performed? (if outside of the practice, facility name, address, phone/fax offacility): [facility] ([place]) Additional Comments: Requesting call when orders ready Does message need to be routed? Yes-Action Needed documented in this encounter Plan of Treatment Upcoming Encounters Date Type Department Care Team (Latest Contact Info) Description 07/13/2024 9:00 AM METAL FURNITURE POLISHER Hospital Encounter [facility] [address] [place] [address] Jaya Grier MD [address] [facility] [address] [place] [address] 07/13/2024 9:00 AM METAL FURNITURE POLISHER - 07/13/2024 9:30 AM METAL FURNITURE POLISHER Surgery [facility] [address] [place] [address] Jaya Grier MD [facility] [facility] [address] [place] [address] ESOPHAGOGASTRODUODENOSCOPY Scheduled Orders Name Type Priority Associated Diagnoses Orde r Schedule FL Modified Barium Swallow W Video Imaging Schedule Routine, Read Routine (OP Routine) Difficulty swallowing pills Dysphasia Expected: 02/10/2024, Expires: 02/09/2025 Scheduled Procedures Name Priority Associated Diagnoses Date/Ti me ESOPHAGOGASTRODUODENOSCOPY Anemia, unspecified type Gastritis without bleeding, unspecified chronicity, unspecified gastritis type 07/13/2024 9:00 AM METAL FURNITURE POLISHER COLONOSCOPY Iron deficiency anemia due to chronic blood loss Scheduled Referrals Name Type Priority Associated Diagnoses Orde r Schedule Ambulatory referral order to Speech Therapy - Outpatient Referral Routine Difficulty swallowing pills Dysphasia Speech disturbance, unspecified type Expected: 02/24/2024 (Approximate), Expires: 02/09/2025 documented as of this encounter Visit Diagnoses Diagnosis Difficulty swallowing pills- Primary Dysphasia Other speech disturbance Speech disturbance, unspecified type Anemia, unspecified type Gastritis without bleeding, unspecified chronicity, unspecified gastritis type documented in this encounter 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 06/26/2024 3:05 AM METAL FURNITURE POLISHER documented as of this encounter Care Teams Full Stack Web Developer Relationship Specialty Start Date End Date Cherelle Corcoran MD PCP - General Family Medicine 08/30/19 Mark Queen MD Consulting Physician Infectious Diseases 01/10/20 Rudolph Welch MD [address] [facility] [address] [place] [address] Consulting Physician Infectious Diseases 12/05/22 Markie Ryan MD [address] [facility] [address] [place] [address] Consulting Physician Nephrology 12/05/22 Dulce Vega, ALIREZA [address] [place] [address] [address] [place] [address] Electric Blanket Packer 10/07/23 05/03/24 [place] [address] [address] [place] [address] Consulting Physician Nephrology 10/22/23 Jaya Grier MD [address] [facility] [address] [place] [address] Consulting Physician Gastroenterology 02/01/24 documented as of this encounter
--- OUTSIDE RECORDS SUMMARY | 2024-07-04 04:02 | XMS_ITS | Encounter Summary ---
Author Organization [facility] Healthcare Address [address] [place] [address] Care Team Providers Care Assembly Detailer Name Role Phone Duane Callahan MD Primary Care Pro vider Mark Queen MD Unavailable [phone] Rudolph Welch MD Unavailable [phone] Markie Ryan MD Unavailable [phone] Dulce Vega RN Unavailable [phone] Jimbo Strauss MD Unavailable [phone] Jaya Grier MD Unavailable Reason for Visit * Reason Comments PT Treatment * Physical Therapy (Routine) - Closed Specialty Diagnoses / Procedures Referred By Contac t Referred To Contact Physical Therapy Diagnoses Acute pain of left shoulder Perico Raphael, ANAY [address] [facility] [place] [address] Phone: tel: fax: [address] [address] Referral ID Status Reason Start Date Expiration Date V isits Requested Visits Authorized [id number] Closed Evaluate and Treat 12/11/2023 06/21/2024 16 30 Encounter Details Date Type Department Care Team (Late st Contact Info) Description 02/09/2024 10:45 AM CDT Therapy [facility] Medical Office Bldg 1 OP Physical Therapy [address] [address] [place], Vivien, SHAREPOINT MANAGER Left shoulder pain, unspecified chronicity (Primary Dx) [...] doctor or pharmacy Often 01/20/2024 [facility] Utilities Answer Date Recorded In the past 12 months has th e [employer], gas, oil, or water [employer] threatened to shut off services in your [...] How often do you attend chur or zoroastrian services? More than 4 times [...] on file Legal Sex Female 9:03 AM FIRING PIN GAUGER Gender Identity Female 02/08/2020 6:39 PM CDT Sexual Orientation Not on file documented as of this encounter Progress Notes * Vivien Cantor PTA - 02/09/2024 10:45 AM CDT ICD-10-CM 1. Left shoulder [...] weeks) Date Date Date Date 01/26/24 02/09/24 Visit Number 1 2 ADDITIONAL HEP SHEETS ISSUED NuStep Arms LV 3 x 5 mins Pulleys Flexion 2' 2' Pulleys ABD 2' 2' Supine wand flexion 15 15' Supine wand ER / IR 15 15' SCap squeezes 15 20' SL ER - LEFT 10 Seated Shoulder Flexion with cane 15x L shoulder PROM 10' 10' Progress Note/Re-Cert * Vivien Cantor PTA - 02/09/2024 10:45 AM CDT Images from the original note were not included. Physical Therapy Visit/Daily Note 02/09/2024 Barbara Chakraborty 1950 ICD-10-CM 1. Left shoulder pain, unspecified chronicity M25.512 DUANE CALLAHAN Bd Special Education Teacher Services Utilized: NO Patient is identified by name and date of on this visit. Subjective: Pt reports her shoulder is in pain today and needs pain medicine. Pt is reporting continued difficulty with constant shoulder pain. Pain today is 9/10. Changes since last visit include pt declines. Objective: Objective Measurement/Observation: Significant guarding occurred with passive shoulder mobility in all directions. She experienced an improvement in pain levels following manual therapy, rated her pain 5/10 at close. Specific exercises and treatment interventions are outlined on exercise worksheet document. Treatment Performed on This Visit: Manual Therapy (body part and techniques): L Shoulder PROM Therapeutic Procedure/Exercise:L shoulder mobility Modalities:nt HEP given:nt Patient education:The role of physical therapy-pt became agitated that SHAREPOINT MANAGER would not give her a pain medication. Educated her that is not in our scope of practice. Assessment: The patient demonstrated a good response [...] mobility of L shoulder. Vivien Cantor PTA [facility] Rehabilitation Services ATTENTION PHYSICIAN If you are [...] (Latest Contact Info) Description 07/13/2024 9:00 AM FIRING PIN GAUGER Hospital Encounter [facility] [address] [place] [address] Jaya Grier MD [address] [facility] [address] [place] [address] 07/13/2024 9:00 AM FIRING PIN GAUGER - 07/13/2024 9:30 AM FIRING PIN GAUGER Surgery [facility] [address] [place] [address] Jaya Grier MD [address] [facility] [address] [place] [address] ESOPHAGOGASTRODUODENOSCOPY Scheduled Procedures Name Priority Associated Diagnoses Date/Ti me ESOPHAGOGASTRODUODENOSCOPY Anemia, unspecified type Gastritis without bleeding, unspecified chronicity, unspecified gastritis type 07/13/2024 9:00 AM FIRING PIN GAUGER COLONOSCOPY Iron deficiency anemia due to chronic blood loss documented as of this encounter Visit Diagnoses Diagnosis Left shoulder pain, unspecified chronicity- Primary Anemia, unspecified type Gastritis without bleeding, unspecified chronicity, unspecified gastritis type documented in this encounter 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 06/26/2024 3:05 AM FIRING PIN GAUGER documented as of this encounter Care Teams Assembly Detailer Relationship Specialty Start Date End Date Duane Callahan MD PCP - General Family Medicine 08/30/19 Mark Queen MD Consulting Physician Infectious Diseases 01/10/20 Rudolph Welch MD [address] [facility] [address] [place] [address] Consulting Physician Infectious Diseases 12/05/22 Markie Ryan MD [address] [facility] [address] [place] [address] Consulting Physician Nephrology 12/05/22 Dulce Vega, ALIREZA [address] [place] [address] [address] [place] [address] Roof Truss Detailer 10/07/23 05/03/24 [place] [address] [place] [address] Consulting Physician Nephrology 10/22/23 Jaya Grier MD [address] [facility] [address] [place] [address] Consulting Physician Gastroenterology 02/01/24 documented as of this encounter
--- OUTSIDE RECORDS SUMMARY | 2024-07-04 04:02 | XMS_ITS | Encounter Summary ---
Author Organization [facility] Healthcare Address [address] [place] [address] Care Team Providers Care Target Developer Name Role Phone Cherelle Corcoran MD Primary Care Pro vider Mark Queen MD Unavailable [phone] Rudolph Welch MD Unavailable [phone] Markie Ryan MD Unavailable [phone] Dulce Vega RN Unavailable Jimbo Strauss MD Unavailable [phone] Jaya Grier MD Unavailable Reason for Referral * Consultation (Routine) - Authorized Specialty Diagnoses / Procedures Referred By Contac t Referred To Contact Diabetes and Nutrition Services Diagnoses Acute kidney injury superimposed on CKD ([place]) [place] [address] [facility] [address] [place] [address] Phone: tel: fax: [facility] [address] [place] [address] Referral ID Status Reason Start Date Expiration Date Visits Requested Visits Authorized [id number] Authorized Specialty Services Required 10/08/2023 11/06/2024 10 10 Question Answer [id number] Initial / Annual Follow-up MNT Please select the performing region: [facility] [145] # of visits: 10 Reason for Visit * Consultation (Routine) - Authorized Specialty Diagnoses / Procedures Referred By Contac t Referred To Contact Diabetes and Nutrition Services Diagnoses Acute kidney injury superimposed on CKD (HCC) Bev Adames MD [address] [place] [address] Phone: tel: fax: [address] [address] Referral ID Status Reason Start Date Expiration Date Visits Requested Visits Authorized [id number] Authorized Specialty Services Required 10/08/2023 11/06/2024 10 10 Encounter Details Date Type Department Care Team (Latest Contact Info) Description 02/15/2024 1:15 PM CDT - 02/15/2024 11:59 PM CDT Hospital Encounter [facility] Nutrition Counseling and Diabetic Education [address] [place] [address] Acute kidney injury superimposed on CKD (HCC) Discharge Disposition: Discharge to home or [...] materials from doctor or pharmacy Often 01/20/2024 [facility] Utilities Answer Date Recorded In the past 12 months has th e [employer], gas, oil, or water company threatened to [...] How often do you attend chur or sikhism services? 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 Change sensor every 14 days 6 each 3 06/30/2023 docusate sodium (COLACE) 100 mg capsule Take 1 capsule (100 mg total) by mouth every 12 (twelve) hours 60 capsule 12/03/2023 flash glucose scanning reader miscIndications:Typ e 2 diabetes mellitus with diabetic neuropathy, with long-term current use of insulin (HCC) Use Madhav 3 reader to scan Madhav 3 sensor 1 each 06/30/2023 fluticasone propionate (FLONASE) 50 mcg/actuation nasal spray Administer 2 sprays into each nostril daily as needed for rhinitis FreeStyle Madhav 3 [place] [facility] Use Madhav 3 reader to scan Madhav 3 sensor 09/25/2023 hydrALAZINE (APRESOLINE) 25 mg tabletIndications:h ypertension Take [...] 595 g 10/22/2023 sucralfate (CARAFATE) 1 gram tabletIndications:G astritis, presence of bleeding unspecified, unspecified chronicity, unspecified gastritis type Take 1 tablet (1 g total) by mouth 4 (four) times a day 120 tablet 1 02/09/2024 02/09/20 25 sucroferric oxyhydroxide 500 mg tablet,chewable Take 0.5 tablets by mouth 3 (three) times a day aspirin 81 mg chewable tablet Take 1 tablet (81 mg total) by mouth daily 12/28/2023 04/12/20 24 benzonatate (TESSALON) 100 mg capsuleIndications: Cough Take 1 capsule (100 mg total) by mouth 3 (three) times a day as needed for cough 42 capsule 02/09/2024 04/23/20 24 benztropine (COGENTIN) 2 mg tablet Take 1 tablet (2 mg total) by mouth daily 30 tablet 02/01/2024 04/18/20 24 calcium acetate,phosphat bind, (PHOSLO) 667 mg capsule TAKE 1 CAPSULE(667 MG) BY MOUTH THREE TIMES DAILY WITH MEALS 270 capsule 10/29/2023 04/06/20 24 carvediloL (COREG) 6.25 mg tabletIndications:U ncontrolled hypertension,Chroni c diastolic congestive heart failure ([facility]) ([facility]) Take 1 tablet (6.25 mg total) by mouth 2 (two) times a day with meals 180 tablet 3 02/11/2024 05/16/20 24 FeroSuL 325 mg (65 mg iron) tablet Take 1 tablet (325 mg total) by mouth daily with breakfast 01/03/2024 04/12/20 24 flash glucose sensor (FreeStyle Madhav 2 Sensor) kitIndications:Type 2 diabetes mellitus with diabetic neuropathy, with long-term current use of insulin ([facility]) Use to continually monitor glucose, change every 14 days 6 kit 3 03/24/2023 05/16/20 24 gabapentin (NEURONTIN) 100 mg capsuleIndications: Diabetic polyneuropathy associated with type 2 diabetes mellitus ([facility]) ([facility]) Take 100 mg 3 times per week after hemodialysis. 12 capsule 1 01/11/2024 03/01/20 24 NIFEdipine (NIFEdipine CC) 60 mg 24 hr tabletIndications:U ncontrolled hypertension TAKE 1 TABLET BY MOUTH DAILY 90 tablet 01/11/2024 05/02/[address] (PROTONIX) 40 mg EC tabletIndications:G I Bleed Take 1 tablet (40 mg total) by mouth 2 (two) times a day 60 tablet 1 02/01/2024 04/12/20 24 risperiDONE (RisperDAL) 2 mg tablet Take 1 tablet (2 mg total) by mouth nightly 30 tablet 02/01/2024 05/27/20 24 traMADoL (ULTRAM) 25 mg tabletIndications:A rthropathy of left shoulder Take 1 tablet (25 mg total) by mouth every 8 (eight) hours as needed for pain 90 tablet 01/11/2024 03/07/20 24 documented as of this encounter Discharge Disposition Disposition Code Departure Means Destination Discharge to home or self care documented in this encounter Plan of Treatment Upcoming Encounters Date Type Department Care Team (Latest Contact Info) Description 07/13/2024 9:00 AM CENTRAL OFFICE EQUIPMENT ENGINEER Hospital Encounter [facility] [address] [place] [id number] Jaya Grier MD [address] [place] [address] 07/13/2024 9:00 AM CENTRAL OFFICE EQUIPMENT ENGINEER - 07/13/2024 9:30 AM CENTRAL OFFICE EQUIPMENT ENGINEER Surgery [facility] [address] [place] [address] Jaya Grier MD [address] [place] [address] ESOPHAGOGASTRODUODENOSCOPY Scheduled Procedures Name Priority Associated Diagnoses Date/Ti me ESOPHAGOGASTRODUODENOSCOPY Anemia, unspecified type Gastritis without bleeding, unspecified chronicity, unspecified gastritis type 07/13/2024 9:00 AM CENTRAL OFFICE EQUIPMENT ENGINEER COLONOSCOPY Iron deficiency anemia due to chronic blood loss Scheduled Referrals Name Type Priority Associated Diagnoses Orde r Schedule Ambulatory referral to Nutrition Services Outpatient Referral Routine Acute kidney injury superimposed on CKD (HCC) Once for 1 Occurrences starting 02/15/2024 until 02/15/2024 documented as of this encounter Visit Diagnoses Diagnosis Acute kidney injury superimposed on CKD (HCC) Anemia, unspecified type Gastritis without bleeding, unspecified chronicity, unspecified gastritis type documented in this encounter 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 06/26/2024 3:05 AM CENTRAL OFFICE EQUIPMENT ENGINEER documented as of this encounter Care Teams Target Developer Relationship Specialty Start Date End Date Cherelle Corcoran MD PCP - General Family Medicine 08/30/19 Mark Queen MD Consulting Physician Infectious Diseases 01/10/20 Rudolph Welch MD [address] [place] [address] Consulting Physician Infectious Diseases 12/05/22 Markie Ryan MD [address] [place] [address] Consulting Physician Nephrology 12/05/22 Dulce Vega, RN [address] [address] [place] [address] Childcare Center Director 10/07/23 05/03/24 [place] [address] [address] [facility] [address] [place] [address] Consulting Physician Nephrology 10/22/23 Jaya Grier MD [address] [place] [address] Consulting Physician Gastroenterology 02/01/24 documented as of this encounter
--- OUTSIDE RECORDS SUMMARY | 2024-07-04 04:02 | XMS_ITS | Encounter Summary ---
Author Organization [facility] Healthcare Address [address] [place] [address] Care Team Providers Care Field Interviewer Name Role Phone Cherelle Corcoran MD Primary Care Pro vider Mark Queen MD Unavailable [phone] Rudolph Welch MD Unavailable [phone] Markie Ryan MD Unavailable [phone] Dulce Vega RN Unavailable [phone] Jimbo Strauss MD Unavailable [phone] Jaya Grier MD Unavailable Encounter Details Date Type Department Care Team (Latest Contact Info) Description 02/09/2024 11:54 AM CDT - 02/09/2024 11:59 PM CDT Hospital Encounter [facility] [address] [place] [id number] Acute cough Discharge Disposition: Discharge to home or self [...] materials from doctor or pharmacy Often 01/20/2024 [facility] Utilities Answer Date Recorded In the past 12 months has e [employer], [employer], oil, or water [employer] threatened to shut off services in your [...] How often do you attend chur or church services? More than 4 times per year [...] any time in the past [address] 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 Change sensor every 14 days 6 each 3 06/30/2023 docusate sodium (COLACE) 100 mg capsule Take 1 capsule (100 mg total) by mouth every 12 (twelve) hours 60 capsule 12/03/2023 flash glucose scanning reader miscIndications:Typ e 2 diabetes mellitus with diabetic neuropathy, with long-term current use of insulin ([facility]) Use Madhav 3 reader to scan Madhav 3 sensor 1 each 06/30/2023 fluticasone propionate (FLONASE) 50 mcg/actuation nasal spray Administer 2 sprays into each nostril daily as needed for rhinitis FreeStyle Madhav 3 [place] misc Use Madhav 3 reader to scan [...] 270 capsule 10/29/2023 04/06/20 24 carvediloL (COREG) 3.125 mg tablet Take 1 tablet (3.125 mg total) by mouth 2 (two) times a day with meals 180 tablet 3 12/18/2023 02/11/20 24 FeroSuL 325 mg (65 mg iron) tablet Take 1 tablet (325 mg total) by mouth daily with breakfast 01/03/2024 04/12/20 flash glucose sensor (FreeStyle Madhav 2 Sensor) kitIndications:Type 2 diabetes mellitus with diabetic neuropathy, with long-term current use of insulin ([facility]) Use to continually monitor glucose, change every 14 days 6 kit 3 03/24/2023 05/16/20 24 gabapentin (NEURONTIN) 100 mg capsuleIndications: Diabetic polyneuropathy associated with type 2 diabetes mellitus ([facility]/HCC) ([facility]) Take 100 mg 3 times [...] total) by mouth nightly 30 tablet 02/01/2024 12/06/20 24 traMADoL (ULTRAM) 25 mg tabletIndications:A rthropathy [...] (Latest Contact Info) Description 07/13/2024 9:00 AM COMMUTATOR REPAIRER Hospital Encounter [facility] [address] [place] [address] Jaya Grier MD [address] [place] [address] [address] [place] [address] 07/13/2024 9:00 AM COMMUTATOR REPAIRER - 07/13/2024 9:30 AM COMMUTATOR REPAIRER Surgery [facility] [address] [place] [address] Jaya Grier MD [address] [place] [address] [address] [place] [address] ESOPHAGOGASTRODUODENOSCOPY Scheduled Procedures Name Priority Associated Diagnoses Date/Ti me ESOPHAGOGASTRODUODENOSCOPY Anemia, unspecified type Gastritis without bleeding, unspecified chronicity, unspecified gastritis type 07/13/2024 9:00 AM COMMUTATOR REPAIRER COLONOSCOPY Iron deficiency anemia due to chronic blood loss documented as of this encounter Procedures Procedure Name Priority Date/Time Associated Diagnosis Comments XR CHEST PA LATERAL 2 VIEWS Schedule RA, Read RA (Appt Today, Awaiting Results) 02/09/2024 12:05 PM CDT Acute cough documented in this encounter Results * XR Chest PA Lateral 2 Views (02/09/2024 12:05 PM CDT) Anatomical Region Laterality Modality Body, Chest N/A Computed Radiogr aphy 02/09/2024 12:2 2 PM CDT Narrative 02/09/2024 12:23 PM CDT EXAM DESCRIPTION: XR CHEST PA LATERAL 2 VIEWS REASON FOR STUDY: Pt daughter states her mom has had a cough for 1 week ?? FINDINGS: Two views compared to January 29, 2024 demonstrate a right internal jugular central venous catheter which is unchanged in position. ??Normal heart size. ??No focal consolidation. ??No pleural effusions. IMPRESSION: No acute radiographic abnormality. THIS IS AN ELECTRONICALLY VERIFIED FINAL REPORT 02/09/2024 12:23 PM - Electronically signed by ??Binu Gao M.D. SN: SN D: ??02/09/2024 12:23 PM T: ??02/09/2024 12:23 PM Report ID: [id number] Reading Location: ??[id number] Procedure Note Binu Gao MD - 02/09/2024 EXAM DESCRIPTION: XR CHEST PA LATERAL 2 VIEWS REASON FOR STUDY: Pt daughter states her mom has had a cough for 1 week FINDINGS: Two views compared to January 29, 2024 demonstrate a rightinternal jugular central venous catheter which is unchanged in position. Normalheart size. No focal consolidation. No pleural effusions. IMPRESSION: No acute radiographic abnormality. THIS IS AN ELECTRONICALLY VERIFIED FINAL REPORT 02/09/2024 12:23 PM - Electronically signed by Binu Gao M.D. 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 [address] [place] [address] Consulting Physician Infectious Diseases 12/05/22 Markie Ryan MD [address] [facility] [address] [place] [address] Consulting Physician Nephrology 12/05/22 Dulce Vega, ALIREZA [address] [place] [address] [address] [place] [address] Agribusiness Professor 10/07/23 05/03/24 [place] [address] [address] Consulting Physician Nephrology 10/22/23 Jaya Grier MD [address] [facility] [address] [place] [address] Consulting Physician Gastroenterology 02/01/24 documented as of this encounter
--- OUTSIDE RECORDS SUMMARY | 2024-07-04 04:02 | XMS_ITS | Encounter Summary ---
Author Organization [facility] Healthcare Address [address] [place] [address] Care Team Providers Care Satellite Instruction Facilitator Name Role Phone Cherelle Corcoran MD Primary Care Pro vider Mark Queen MD Unavailable [phone] Rudolph Welch MD Unavailable Markie Ryan MD Unavailable Dulce Vega RN Unavailable [phone] Jimbo Strauss MD Unavailable [phone] Jaya Grier MD Unavailable Encounter Details Date Type Department Care Team (Late st Contact Info) Description 02/18/2024 Documentation [facility] Medical Office Bldg 1 OP Physical Therapy [address] [place] [id number] Range, Vivien, [employer] Social History Tobacco Use Types Packs/Day Years [...] doctor or pharmacy Often 01/20/2024 [facility] Utilities Answer Date Recorded In the [...] often do you attend chur ch or lutheran services? More than 4 times per year 02/01/2024 Do you belong to any clubs o r organizations such as baptist groups, unions, fraternal or athletic groups, or [...] any time in the past 12 m [facility], were you homeless or living in a fci (including now)? No 02/01/2024 Personal Safety Answer Date Recorded Have you ever been in or are you currently in a harmful physical or emotional relationship or is someone making you feel afraid or unsafe? Denies 01/30/2024 Comments No Sex and Gender Information Value Date Recorded Sex Assigned at Not on file Legal Sex Female 9:03 AM CAD LIBRARIAN Gender Identity Female 02/08/2020 6:39 PM CDT Sexual Orientation Not on file documented as of this encounter Progress Notes * Vivien Cantor PTA - 02/18/2024 11:08 AM CDT Pt no call no show. documented in this encounter Plan of Treatment Upcoming Encounters Date Type Department Care Team (Latest Contact Info) Description 07/13/2024 9:00 AM CAD LIBRARIAN Hospital Encounter [facility] GI Lab [address] [place] [address] Jaya Grier MD [address] [facility] [address] [place] [address] 07/13/2024 9:00 AM CAD LIBRARIAN - 07/13/2024 9:30 AM CAD LIBRARIAN Surgery [facility] GI Lab [address] [place] [address] Jaya Grier MD [address] [facility] [address] [place] [address] ESOPHAGOGASTRODUODENOSCOPY Scheduled Procedures Name Priority Associated Diagnoses Date/Ti me ESOPHAGOGASTRODUODENOSCOPY Anemia, unspecified type Gastritis without bleeding, unspecified chronicity, unspecified gastritis type 07/13/2024 9:00 AM CAD LIBRARIAN COLONOSCOPY Iron deficiency anemia due to chronic blood loss documented as of this encounter Visit Diagnoses Not on filedocumented in this encounter 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 06/26/2024 3:05 AM CAD LIBRARIAN documented as of this encounter Care Teams Satellite Instruction Facilitator Relationship Specialty Start Date End Date Cherelle Corcoran MD PCP - General Family Medicine 08/30/19 Mark Queen MD Consulting Physician Infectious Diseases 01/10/20 Rudolph Welch MD [address] [facility] [address] [place] [address] Consulting Physician Infectious Diseases 12/05/22 Markie Ryan MD [address] [facility] [address] [place] [address] Consulting Physician Nephrology 12/05/22 Dulce Vega, ALIREZA [address] [place] [address] [address] [place] [address] Processing Clerk 10/07/23 05/03/[address] [place] [address] [facility] [address] [place] [address] Consulting Physician Nephrology 10/22/23 Jaya Grier MD [address] [facility] [address] [place] [address] Consulting Physician Gastroenterology 02/01/24 documented as of this encounter
--- OUTSIDE RECORDS SUMMARY | 2024-07-04 04:02 | XMS_ITS | Encounter Summary ---
Author Organization [facility] Healthcare Address [address] [place] [address] Care Team Providers Care Terra Cotta Roofer Name Role Phone Cherelle Corcoran MD Primary Care Pro vider Mark Queen MD Unavailable [phone] Rudolph Welch MD Unavailable [phone] Markie Ryan MD Unavailable [phone] Dulce Vega RN Unavailable [phone] Jimbo Strauss MD Unavailable [phone] Jaya Grier MD Unavailable Encounter Details Date Type Department Care Team (Late st Contact Info) Description 02/15/2024 Documentation [facility] Nutrition Counseling and Diabetic Education [address] [place] [address] Social History Tobacco Use Types Packs/Day Years [...] materials from doctor or pharmacy Often 01/20/2024 [facility] Utilities Answer Date Recorded In [...] often do you attend chur ch or judaism services? More than 4 times per year 02/01/2024 Do you belong to any clubs o r organizations such as hoahaoism groups, unions, fraternal or athletic groups, or [...] in the past 12 m [facility], were you homeless or living in a care home (including now)? No 02/01/2024 Personal Safety Answer Date Recorded Have you ever been in or are you currently in a harmful physical or emotional relationship or is someone making you feel afraid or unsafe? Denies 01/30/2024 Comments No Sex and Gender Information Value Date Recorded Sex Assigned at Not on file Legal Sex Female 9:03 AM COMMUNICATION PROFESSOR Gender Identity Female 02/08/2020 6:39 PM CDT Sexual Orientation Not on file documented as of this encounter Last Filed Vital Signs Vital Sign Reading Time Taken Comments Blood Pressure - - Pulse - - Temperature - - Respiratory Rate - - Oxygen Saturation - - Inhaled Oxygen Concentration - - Weight 59 kg (130 lb) 02/15/2024 2:44 PM CDT Height 157.5 cm (5' 2 ) 02/15/2024 2:44 PM CDT Body Mass Index 23.78 02/15/2024 2:44 PM CDT documented in this encounter Progress Notes * Shea Evangelista, RD - 02/15/2024 1:16 PM CDT Outpatient Nutrition Counseling Assessment Patient Name: Barbara Chakraborty : 1950 Age: 73 y.o. Sex: female Encounter Date: 02/15/2024 [address] appointment with RD via Phone Time Calculation (min): 36 min Pt referred by Bev Adames MD/Mayra Wong to nutrition counseling for Acute kidney injury superimposed on CKD (HCC) (N17.9,N18.9) Patient A1C is: 6.5% or higher She has a past medical history of Anemia, Arthritis, CHF (congestive heart failure) (CMS/HCC) (HCC), CKD (chronic kidney disease) stage V requiring chronic dialysis (HCC), Dementia (HCC), Depression,Diabetic neuropathy (HCC), GERD (gastroesophageal reflux disease), HL (hearing loss), Hyperlipidemia, Hypertension, Movement disorder, Osteomyelitis (HCC), Rotator cuff tear, left, Schizophrenia (HCC), and Type 2 diabetes mellitus (HCC). Today's Assessment: 02/15/2024: Initial Appointment - Appointment completed with Pt's daughter, Areli. Pt has Stage 5 CKD on HD, schizophrenia, dementia, T2DM, + Parkinson disease. - Children go to dialysis with her and stay there. Pt has tried to pull out catheter at HD. They have talked to RD at dialysis. - She has CGM to check blood sugars, usually in the 100s. - She has lost about 30 pounds in the last year from being in the hospital. Current went 130 lbs, UBW 160 lbs. - Daughter is in charge of meal choices, she's never alone, granddaughter will stay with her while daughter is at work. Barbara does not cook because of dementia. - Daughter is unsure if Pt is having swallowing issues, but she does pocket food. Getting a barriumswallow. Is it swallow issue vs Denture issue vs. Pt forgets to swallow? Diet Recall/Diet Habits: B: Grits (2 packages) w/ Butter w/ Ham, Water, Coffee + Cream L: Lunch Meat from deli (turkey and ham) on wheat bread, lettuce tomato, miracle whip w/ pickle slice D: Pasta, Chicken Demetris, Broccoli, Garlic Cheese Bread OR Roasted Chicken w/ Mashed Potatoes and Vegetables Beverages: Tea from [employer] w/ Splenda, Water, Diet Starry Occasionally Snacks: Fruit, Yogurt, Chicken Salad w/ Crackers Social Determinants of Health In the past 12 months, you were worried that your food would run out before you got the money to buy more. Not Appropriate to Ask During this Appointment Within the past 12 months, the food you bought did not last and you didn't have money to get more. Not Appropriate to Ask During this Appointment NFPE: Not appropriate to complete at this time Physical Activity: Physical Therapy Limitations to Physical Activity: None Support System: Daughter Barriers to Change: Dementia Motivations for Change: Kidney Health Anthropometrics: Ht 157.5 cm (5' 2 ) Wt 59 kg (130 lb) BMI 23.78 kg/m?? IBW/kg (Calculated) : 49.9 kg Wt Readings from Last 10 Encounters: 02/15/24 59 kg (130 lb) 02/11/24 62.1 kg (137 lb) 02/09/24 61.2 kg (135 lb) 02/05/24 61.2 kg (135 lb) 01/30/24 61.3 kg (135 lb 2.3 oz) 01/11/24 65.8 kg (145 lb) 01/06/24 65.9 kg (145 lb 4.5 oz) 01/01/24 54.4 kg (120 lb) 12/28/23 54.4 kg (120 lb) 12/24/23 54.6 kg (120 lb 5.9 oz) Objective Relevant Medications: HOME MEDICATIONS : acetaminophen 500 mg capsule aspirin 81 mg chewable tablet atorvastatin (LIPITOR) 40 mg tablet benzonatate (TESSALON) 100 mg capsule benztropine (COGENTIN) 2 mg tablet blood-glucose sensor (FreeStyle Madhav 3 Sensor) device calcium acetate,phosphat bind, (PHOSLO) 667 mg capsule carvediloL (COREG) 6.25 mg tablet docusate sodium (COLACE) 100 mg capsule FeroSuL 325 mg (65 mg iron) tablet flash glucose scanning reader [facility] flash glucose sensor (FreeStyle Madhav 2 Sensor) kit fluticasone propionate (FLONASE) 50 mcg/actuation nasal spray FreeStyle Madhav 3 Golden misc gabapentin (NEURONTIN) 100 mg capsule hydrALAZINE [...] bulk powder risperiDONE (RisperDAL) 2 mg tablet sucralfate (CARAFATE) 1 gram tablet traMADoL (ULTRAM) 25 mg tablet omeprazole (PriLOSEC) 20 mg capsule Food/Medication Interactions: Carvedilol (COREG) (beta roz)- Take separately from OJ; Take 2 hours before or 6 hours after calcium supplement/antacid; Avoid natural licorice and alcohol, Omeprazole (Prilosec, Zegerid, OmePPi) (Proton Pump Inhibitor)- Avoid alcohol, and Statin (Cholesterol Lowering)- Do not take with grapefruit or citrus fruits, Avoid [place]'s Wort, Green Tea, Red Yeast Rice, Alcohol Vitamin/Supplement Use: No Lab Review: Lab Results Component Value Date HGBA1C 8.2 (H) 10/08/2023 Lab Results Component Value Date CHOL 118 10/30/2023 HDL 47 10/30/2023 TRIG 104 10/30/2023 CREATININE 3.00 (H) 01/31/2024 BUNSER 19 01/31/2024 SODIUM 136 01/31/2024 POTASSIUM 4.0 01/31/2024 PHOS 2.9 01/05/2024 Social History Tobacco Use Smoking status: Never Passive exposure: Never Smokeless tobacco: Never Substance and Sexual Activity Drug use: Never Sexual activity: Not Currently Partners: Male Alcohol Use: Not At Risk (01/30/2024) AUDIT-C Frequency of Alcohol Consumption: Never Average Number of Drinks: Patient does not drink Frequency of Binge Drinking: Never Nutrition Diagnosis: Nutrition Diagnosis 1: Increased nutrient needs (protein) Related to: ESRD Evidenced by: Patient interview, Dialysis treatments Intervention: Nutritional Needs: MSJ Total Energy Needs: 1362.4 kcal using Activity Factor: 1.3 Total Protein Estimated Needs (gm): 58.97--Protein Needs Based on g/k.0 --Fluid Needs Based on : (750 mL-1500 mL) Recommendations/Education: Adapted intervention to patient's readiness, skills, resources, culture and lifestyle Offered strategies and action steps to help patient reach nutrition-related goals Chronic Kidney Disease Education: Discussed GRF is a measure of how well kidney's are working Kidney disease increases the chances of heart disease, heart attacks, and stroke The best way to take care of kidneys is to keep blood pressure below 140/90. Stay in target cholesterol ranges, eat a healthy diet, and stay active. Discussed Kidney Friendly Diet: Sodium Choosing foods with less salt and foods that are healthy for your heart Salt Free Seasoning are high in potassium and should be avoided Making own salt free seasonings using other herbs Encouraged items that say sodium free, salt free, low sodium, and unsalted. Protein Limiting portion sizes of protein to the size of a deck of cards at each meal Eating chicken and fish as main sources of protein and limiting red meat to 1-2x/week Grilled, broiled, baked foods over deep fried Encouraged cooking spray instead of butter. Phosphorus Is a mineral that helps keep bones healthy This can build up in blood, which can cause itchy skin, bone, and joint pain Foods with less phosphorus: fresh fruits and vegetables and drinking light- colored sodas. Cereals, dairy,and annie can be high in phosphorus Potassium Is a mineral that helps nerves and muscles work Kidneys may not remove extra potassium from the blood Foods low in potassium: white rice, white bread, pasta, cooked rice and wheat cereals, certain fruits and vegetables Foods high in potassium: brown/wild rice, bran cereals, cow's milk, certain fruits and vegetables Handouts Provided: Mail CKD Packet Phos, Potassium, Sodium Handouts Initial DM Handouts Snack Idea Handouts Short-Term Goals: 1) Control sodium intake 2) Talk to RD at Dialysis Alf Goals: 1) Avoid eGFR getting worse Monitoring and Evaluation: Patient/Caregiver is in Action stage of change Patient/Caregiver verbalizing understanding of education, education needs reinforcement Expect adherence to recommendations to be Good to Fair. Pt to follow up as needed (will follow with RD at dialysis for now) for support and reinforcement. Shea Evangelista MS, RD, LD documented in this encounter Plan of Treatment Upcoming Encounters Date Type Department Care Team (Latest Contact Info) Description 07/13/2024 9:00 AM COMMUNICATION PROFESSOR Hospital Encounter [facility] GI Lab [address] [place] [address] Jaya Grier MD [address] [facility] [address] [place] [address] 07/13/2024 9:00 AM COMMUNICATION PROFESSOR - 07/13/2024 9:30 AM COMMUNICATION PROFESSOR Surgery [facility] GI Lab [address] [place] [address] Jaya Grier MD [address] [facility] [address] [place] [address] ESOPHAGOGASTRODUODENOSCOPY Scheduled Procedures Name Priority Associated Diagnoses Date/Ti me ESOPHAGOGASTRODUODENOSCOPY Anemia, unspecified type Gastritis without bleeding, unspecified chronicity, unspecified gastritis type 07/13/2024 9:00 AM COMMUNICATION PROFESSOR COLONOSCOPY Iron deficiency anemia due to chronic blood loss documented as of this encounter Visit Diagnoses Not on filedocumented in this encounter 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 06/26/2024 3:05 AM COMMUNICATION PROFESSOR documented as of this encounter Care Teams Terra Cotta Roofer Relationship Specialty Start Date End Date Cherelle Corcoran MD PCP - General Family Medicine 08/30/19 Mark Queen MD Consulting Physician Infectious Diseases 01/10/20 Rudolph Welch MD [address] [facility] [address] [place] [address] Consulting Physician Infectious Diseases 12/05/22 Markie Ryan MD [address] [facility] [address] [place] [address] Consulting Physician Nephrology 12/05/22 Dulce Vega, ALIREZA [address] [place] [address] [address] [place] [address] Vocational Rehabilitation Specialist 10/07/23 05/03/24 [place] [address] [facility] [address] [place] [address] Consulting Physician Nephrology 10/22/23 Jaya Grier MD [address] [facility] [address] [place] [address] Consulting Physician Gastroenterology 02/01/24 documented as of this encounter
--- OUTSIDE RECORDS SUMMARY | 2024-07-04 04:02 | XMS_ITS | Encounter Summary ---
Author Organization [facility] Healthcare Address [address] [place] [address] Care Team Providers Care Model Engine Mechanic Name Role Phone Cherelle Corcoran MD Primary Care Pro vider Mark Queen MD Unavailable + [phone] Rudolph Welch MD Unavailable Markie Ryan MD Unavailable [phone] Dulce Vega RN Unavailable [phone] Jimbo Strauss MD Unavailable [phone] Jaya Grier MD Unavailable Reason for Referral * Consultation (Routine) - Closed Specialty Diagnoses / Procedures Referred By Contac t Referred To Contact Gastroenterology Diagnoses Gastritis, presence of bleeding unspecified, unspecified chronicity, unspecified gastritis type Colon cancer screening Colon polyps Cherelle Corcoran MD [address] [facility] [address] [place] [address] Phone: tel: fax: Tobias Patel MD [address] [facility] [address] [place] [address] Phone: tel: fax: Referral ID Status Reason Start Date Expiration Date V isits Requested Visits Authorized [id number] Closed Specialty Services Required 02/09/2024 03/10/2025 1 1 Question Answer Process Instructions: THE AMBULATORY REFERRAL TO GASTROENTEROLOGY IS NOT AN ORDER FOR A PROCEDURE (I.E. EGD, COLONOSCOPY.) USE THE DIRECT SCHEDULING CASE REQUEST ORDER (GI50) IF THE PATIENT REQUIRES A PROCEDURE TO BE PERFORMED. Please select the performing region: External Order [171] To provider: TOBIAS PATEL [[id number]] # of visits: 1 * Consultation (Routine) - Closed Specialty Diagnoses / Procedures Referred By Maryse lama Referred To Contact Hematology Diagnoses Iron deficiency anemia, unspecified iron deficiency anemia type Cherelle Corcoran MD [address] [place] [address] Phone: tel: fax: Unknown Place of Service fax: Referral ID Status Reason Start Date Expiration Date V isits Requested Visits Authorized [id number] Closed Specialty Services Required 02/09/2024 03/10/2025 1 1 Question Answer Please select the performing region: External Order [171] # of visits: 1 Comments [facility] Also with anemia of ESRD, 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 iron Reason for Visit * Reason Comments Hospital Follow Up Discuss tramadol, ca rafate Encounter Details Date Type Department Care Team (Late st Contact Info) Description 02/09/2024 10:00 AM CDT Office Visit [facility] Primary Care at [address] [phone] Cherelle Corcoran MD [address] [place] [id number] Gastritis, presence of bleeding unspecified, unspecified chronicity, unspecified gastritis type (Primary Dx); Iron deficiency anemia, unspecified iron deficiency anemia type; Arthropathy of left shoulder; Colon cancer screening; Colon polyps; Acute cough Social History Tobacco Use Types Packs/Day Years [...] materials from doctor or pharmacy Often 01/20/2024 [facility] Utilities Answer Date Recorded In the past 12 months has e [employer], gas, oil, or water [employer] threatened to shut off services in your [...] How often do you attend chur or congregational services? 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 Gender Identity Female 02/08/2020 6:39 PM CDT Sexual Orientation Not on file documented as of this encounter Last Filed Vital Signs Vital Sign Reading Time Taken Comments Blood Pressure 136/70 02/09/2024 10:15 AM CDT Pulse 80 02/09/2024 10:15 AM CDT Temperature 36.4 ??C (97.5 ??F) 02/09/2024 10:15 AM C DT Respiratory Rate 18 02/09/2024 10:15 AM CDT Oxygen Saturation 98% 02/09/2024 10:15 AM CDT Inhaled Oxygen Concentration - - Weight 61.2 kg (135 lb) 02/09/2024 10:15 AM CDT Height 157.5 cm (5' 2 ) 02/09/2024 10:15 AM CDT Body Mass Index 24.69 02/09/2024 10:15 AM CDT documented in this encounter Ordered Prescriptions Prescription Sig Dispense Quantity Refills Last Filled Start Date End Date sucralfate (CARAFATE) 1 gram tabletIndications: Gastritis, presence of bleeding unspecified, unspecified chronicity, unspecified gastritis type Take 1 tablet (1 g total) by mouth 4 (four) times a day 120 tablet 1 02/09/2024 5 benzonatate (TESSALON) 100 mg capsuleIndications :Cough Take 1 capsule (100 mg total) by mouth 3 (three) times a day as needed for cough 42 capsule 02/09/2024 4 documented in this encounter Progress Notes * Cherelle Corcoran MD - 02/09/2024 10:00 AM CDT Images from the original note were not included. Transition of Care Visit Patient is seen in the office today for a transition of care visit, after a recent hospitalization.Initial phone contact was confirmed for the transition of care within two business days after discharge, and communication regarding aspects of care, education and support with activities of daily living is documented in the chart. ICherelle MD have personally reviewed pertinent Hospital/ER data including [employer] and Care Everywhere if available. This patient's discharge medication list has been reviewed and reconciled with her medication list in the office chart and has also been reviewed with patient a nd/or caregiver. I have noted any changes. Admission Date: 01/29/24 Discharge Date: 02/01/24 Date of Initial Post-discharge Interactive Contact: 02/03/24 Complexity of Medical Decision Making: moderate Metabolic Lab Results: Body mass index is 24.69 kg/m??. Glucose: Glucose Date Value Ref Range Status 01/31/2024 79 70 - 199 mg/dL Final Comment: Interpretive Data Fasting glucose >/= 126 mg/dl is diagnostic for diabetes. Fasting is defined as no caloric intake [...] was last revised 2022. Testing performed by: [facility], [address] [place] [address]., [id number] Glucose, POC Date Value Ref Range Status 02/01/2024 100 70 - 199 mg/dL Final Comment: Testing performed by: [facility], [address] [place] [address]., [id number] Lab Results Component Value Date WBC 7.9 02/01/2024 HGB 10.1 (L) 02/01/2024 HCT 30.6 (L) 02/01/2024 MCV 93.3 02/01/2024 Lab Results Component Value Date GLUCOSE 100 02/01/2024 CALCIUM 8.3 (L) 01/31/2024 SODIUM 136 01/31/2024 POTASSIUM 4.0 01/31/2024 CO2 26 01/31/2024 CHLORIDE 98 01/31/2024 BUNSER 19 01/31/2024 CREATININE 3.00 (H) 01/31/2024 Major Procedures and Tests: Major Procedures and Tests Performed During Inpatient Stay: Studies Pending at Discharge (Includes Lab and Radiology) Studies pending at discahrge (includes Lab and Radiology) have been reviewed with the patient/caregiver. Interval History: Admitted for melena/coffee ground emesis and treated for upper GI bleed with protonix. EGD showed gastritis, biopsies now back and normal/negative h. Pylori. Discharged on protonix and carafate x8w, but insurance denied liquid version. Also noted to have severe acute on chronic normocytic anemia, received 1 unit PRBC. Thought gastritis might be 2/2 iron pills. Chronic shoulder pain: following with orthopedics, upcoming appointment to determine surgery recommendations. Unable to get tramadol without PA per daughter Problem Arthropathy of Left Shoulder Current Outpatient Medications Medication Sig Dispense Refill acetaminophen 500 mg capsule Take 2 capsules (1,000 mg total) by mouth 3 (three) times a day as needed for mild pain (pain scale 1-4) aspirin 81 mg chewable tablet atorvastatin (LIPITOR) 40 mg tablet Take 1 [...] THREE TIMES DAILY WITH MEALS 270 capsule 0 carvediloL (COREG) 3.125 mg tablet Take 1 tablet (3.125 mg total) by mouth 2 (two) times a day withmeals 180 tablet 3 docusate sodium (COLACE) 100 mg capsule Take 1 capsule (100 mg total) by mouth every 12 (twelve) hours (Patient taking differently: Take 1 capsule (100 mg total) by mouth 2 (two) times a day as needed) 60 capsule 0 FeroSuL 325 mg (65 mg iron) tablet Take 1 tablet (325 mg total) by mouth daily with breakfast flash glucose scanning reader [facility] Use Madhav 3 reader to scan Madhav 3 sensor 1 each 0 flash glucose sensor (FreeStyle Madhav 2 Sensor) kit Use to continually monitor glucose, change every 14 days 6 kit 3 fluticasone propionate (FLONASE) 50 mcg/actuation nasal spray Administer 2 sprays into each nostrildaily as needed for rhinitis FreeStyle Madhav 3 Lolo mis Use Madhav 3 reader to scan Madhav 3 sensor gabapentin (NEURONTIN) 100 mg capsule Take 100 mg 3 times per week after hemodialysis. 12 capsule 1 hydrALAZINE (APRESOLINE) 25 mg tablet Take 1 tablet (25 mg total) by mouth 2 (two) times a day 60 tablet 1 insulin glargine 100 unit/mL (3 mL) [...] TABLET BY MOUTH DAILY [address] (PROTONIX) 40 mg EC tablet Take 1 tablet (40 mg total) by mouth 2 (two) times a day60 tablet 1 pen needle, diabetic (Easy Touch) 32 gauge x 5/32 needle USE DIRECTED FOUR TIMES DAILY 100 each3 polyethylene glycol (MIRALAX) 17 gram/dose bulk powder Take 17 g by mouth daily as needed (Constipation) 595 g 0 risperiDONE (RisperDAL) 2 mg tablet Take 1 tablet (2 mg total) by mouth nightly 30 tablet 0 benzonatate (TESSALON) 100 mg capsule Take 1 capsule (100 mg total) by mouth 3 (three) times a day as needed for cough 42 capsule 0 sucralfate (CARAFATE) 1 gram tablet Take 1 tablet (1 g total) by mouth 4 (four) times a day 120 tablet 1 traMADoL (ULTRAM) 25 mg tablet Take 1 tablet (25 mg total) by mouth every 8 (eight) hours as neededfor pain (Patient not taking: Reported on 02/09/2024) 90 tablet 0 No current facility-administered medications for this visit. Review of Systems: Review of Systems Constitutional: Negative for fever. HENT: Positive for rhinorrhea. Negative for sinus pressure. Respiratory: Positive for cough. Negative for shortness of breath. Gastrointestinal: Negative for abdominal pain, blood in stool and vomiting. Musculoskeletal: Positive for arthralgias. Physical Exam: BP 136/70 (BP Location: Left arm, Patient Position: Sitting) Pulse 80 Temp 36.4 ??C (97.5 ??F) (Temporal) Resp 18 Ht 157.5 cm (5' 2 ) Wt 61.2 kg (135 lb) SpO2 98% BMI 24.69 kg/m?? Physical Exam Gen: NAD, comfortable, appears as stated age Eyes: no conjunctival injection, EOMI ENMT: external ears symmetric CV: Regular rate Pulm: no increased work of breathing, clear to asculation bilaterally, no wheezing, rhonchi or rales, no egophony Abd: soft, non-tender, non-distended Skin: no rashes or nodules, warm and dry MSK/Neuro: symmetric limb movement, using wheelchair Psych: alert and oriented to person/place Assessment/Plan Diagnoses and all orders for this visit: Gastritis, presence of bleeding unspecified, unspecified chronicity, unspecified gastritis type (Primary) Comments: Continue protonix Resent carafate in pill form Referral placed to outpt GI Orders: - sucralfate (CARAFATE) 1 gram tablet; Take 1 tablet (1 g total) by mouth 4 (four) times a day - Ambulatory referral to Gastroenterology; Future Iron deficiency anemia, unspecified iron deficiency anemia type Comments: Intolerant to oral iron Recommend discussing iron infusions with nephrology, if unable to manage I ordered referral to hematology Orders: - Ambulatory referral to Hematology; Future Arthropathy of left shoulder Assessment & Plan: Following with orthopedics, reviewed note Will have HONEY Delgado follow up on PA for tramadol Colon cancer screening - Ambulatory referral to Gastroenterology; Future Colon polyps - Ambulatory referral to Gastroenterology; Future Acute cough Comments: AFVSS, exam benign Daughter reports started in the hospital so will repeat CXR to eval for pna, but otherwise no evidence of bacterial infection Orders: - benzonatate (TESSALON) 100 mg capsule; Take 1 capsule (100 mg total) by mouth 3 (three) times a day as needed for cough - XR Chest PA Lateral 2 Views; Future Coordination of Home care services and follow-up with specialist appointments confirmed. Instructions have been provided to and reviewed with the patient/career development associate prior to discharge. My total encounter time on 02/09/2024 was 23 minutes which was spent in the activities documented inthe note. This includes time spent prior to the visit and after the visit in direct care of the patient. This time does not include time spent in any separately reportable services. Cherelle Corcoran MD documented in this encounter Miscellaneous Notes * Assessment & Plan Note - Cherelle Corcoran MD - 02/09/2024 10:43 AM CDTAssociated Problem(s): Arthropathy of left shoulder Following with orthopedics, reviewed note Will have HONEY Delgado follow up on PA for tramadol documented in this encounter Plan of Treatment Upcoming Encounters Date Type Department Care Team (Latest Contact Info) Description 07/13/2024 9:00 AM SPECIAL EDUCATION INCLUSION TEACHER Hospital Encounter [facility] [address] [place] [address] Jaya Grier MD [address] [place] [address] [address] [place] [address] 07/13/2024 9:00 AM SPECIAL EDUCATION INCLUSION TEACHER - 07/13/2024 9:30 AM SPECIAL EDUCATION INCLUSION TEACHER Surgery [facility] Lab [address] [place] [address] Jaya Grier MD [facility] [address] [place] [address] ESOPHAGOGASTRODUODENOSCOPY Scheduled Procedures Name Priority Associated Diagnoses Date/Ti pa ESOPHAGOGASTRODUODENOSCOPY Anemia, unspecified type Gastritis without bleeding, unspecified chronicity, unspecified gastritis type 07/13/2024 9:00 AM SPECIAL EDUCATION INCLUSION TEACHER COLONOSCOPY Iron deficiency anemia due to chronic blood loss Scheduled Referrals Name Type Priority Associated Diagnoses Order Schedule Ambulatory referral to Hematology Outpatient Referral Routine Iron deficiency anemia, unspecified iron deficiency anemia type Expected: 02/23/2024 (Approximate), Expires: 02/08/2025 Ambulatory referral to Gastroenterology Outpatient Referral Routine Gastritis, presence of bleeding unspecified, unspecified chronicity, unspecified gastritis type Colon cancer screening Colon polyps Expected: 02/23/2024 (Approximate), Expires: 02/08/2025 documented as of this encounter Results * [...] PM T: ??02/09/2024 12:23 PM Report ID: [id number] Reading Location: ??[id number] Procedure Note Binu Gao MD - 02/09/2024 [...] Binu Gao M.D. SN: SN Report ID: [id number] Reading Location: [id number] Cherelle Corcoran MD IMG XR PROCEDURES Final Result documented in this encounter Visit Diagnoses Diagnosis Gastritis, presence of bleeding unspecified, unspecified chronicity, unspecified gastritis type- Primary Iron deficiency anemia, unspecified iron deficiency anemia type Arthropathy of left shoulder Colon cancer screening Special screening for malignant neoplasms, colon Colon polyps Benign neoplasm of colon Acute cough Acute cough Anemia, unspecified type Gastritis without bleeding, unspecified chronicity, unspecified gastritis type documented in this encounter Discontinued Medications Medication Sig Discontinue Reason Start Date End Da te sucralfate (CARAFATE) suspension 1 gram/10 mL Take 10 mL (1 g total) by mouth 4 (four) times a day (with meals and nightly) 02/01/2024 02/09/2024 documented as of this encounter 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 06/26/2024 3:05 AM SPECIAL EDUCATION INCLUSION TEACHER documented as of this encounter Care Teams Model Engine Mechanic Relationship Specialty Start Date End Date Cherelle Corcoran MD PCP - General Family Medicine 08/30/19 Mark Queen MD Consulting Physician Infectious Diseases 01/10/20 Rudolph Welch MD [address] [facility] [address] [place] [address] Consulting Physician Infectious Diseases 12/05/22 Markie Ryan MD [address] [facility] [address] [place] [address] Consulting Physician Nephrology 12/05/22 Dulce Vega RN [address] [place] [address] [address] [place] [address] Gizzard Peeler 10/07/23 05/03/24 [place] [address] [address] [facility] [address] [place] [address] Consulting Physician Nephrology 10/22/23 Jaya Grier MD [address] [facility] [address] [place] [address] Consulting Physician Gastroenterology 02/01/24 documented as of this encounter
--- OUTSIDE RECORDS SUMMARY | 2024-07-04 04:02 | XMS_ITS | Encounter Summary ---
Author Organization [facility] Healthcare Address [address] [place] [address] Care Team Providers Care Veterinary Livestock Inspector Name Role Phone Duane Callahan MD Primary Care Pro vider Mark Queen MD Unavailable [phone] Rudolph Welch MD Unavailable Markie Ryan MD Unavailable [phone] Dulce Vega RN Unavailable [phone] Jimbo Strauss MD Unavailable [phone] Jaya Grier MD Unavailable Reason for Visit * Reason Comments PT Treatment * Physical Therapy (Routine) - Closed Specialty Diagnoses / Procedures Referred By Contac t Referred To Contact Physical Therapy Diagnoses Acute pain of left shoulder Perico Raphael, ANAY [address] [facility] [place] [address] Phone: tel: fax: [address] [phone] Referral ID Status Reason Start Date Expiration Date V isits Requested Visits Authorized [id number] Closed Evaluate and Treat 12/11/2023 06/21/2024 16 30 Encounter Details Date Type Department Care Team (Late st Contact Info) Description 02/23/2024 10:45 AM CDT Therapy [facility] Medical Office Bldg 1 OP Physical Therapy [address] [address] Rick Oconnor, ANG Left shoulder pain, unspecified chronicity (Primary Dx) [...] materials from doctor or pharmacy Often 01/20/2024 [facility] Utilities Answer Date Recorded In the past 12 months has th e [employer], gas, oil, or water [employer] threatened to shut off services in your [...] on file Legal Sex Female 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 Left shoulder [...] (8 weeks) Date Date Date Date Date 01/26/24 02/09/24 02/11/24 02/16/24 02/23/24 Visit Number 1 2 3 4 5 ADDITIONAL HEP SHEETS ISSUED NuStep Arms LV 3 x 5 mins L3 x 5 min A - 10 L3 x 5 min A-10 L-4, A=8, 5 min Pulleys Flexion 2' 2' 2' 2' 3 min Pulleys ABD 2' 2' 2 NT Supine wand flexion 15 15' 10x 10x 10 x Supine wand ER / IR 15 15' 2 x 10 x20 15 x SCap squeezes 15 20' 2 x 10 2 x 10 10 x 2 SL ER - LEFT 10 2 x 10 x10 Seated Shoulder Flexion with cane 15x 2 x 10 x10 10 x L shoulder PROM 10' 10' declined Declined Gentle 5 min Progress Note/Re-Cert * Rick Oconnor, ANG - 02/23/2024 10:45 AM CDT Images from the original note were not included. Physical Therapy Visit/Daily Note 02/23/2024 Barbara Chakraborty 1950 ICD-10-CM 1. Left shoulder pain, unspecified chronicity M25.512 DUANE CALLAHAN Commercial Floor Covering Installer Services Utilized: NO Patient is identified by name and date of on this visit. Subjective: Pt states limited mobility left shoulder. Pt is reporting continued difficulty with movement due tosig pain. Pain today is 6-8/10 left upper arm anywhere from elbow to shoulder. Changes since last visit include no significant changes. Objective: Objective Measurement/Observation: Patient able to attain approx 94 deg of flexion using marilee's seated. Pt tolerates all exercises with guarded range and technique noted. Pt displays very guarded and reported painful movement. Specific exercises and treatment interventions are outlined on exercise worksheet document. Treatment Performed on This Visit: Manual Therapy (body part and techniques): PROM very gentle. Therapeutic Procedure/Exercise: See exercise sheet. Modalities: None. HEP given: None. Patient education: Cueing given during exercise completion as needed.. Assessment: The patient demonstrated a fair response to today's treatment as evidenced by these objective findings: showing improved mobility during seated marilee activity. The patient is making min progress toward STG # 1-3 as evidenced by changes in working toward left shoulder ROM and mobility.The patient continues to demonstrate deficits with ROM,mobility and pain symptoms. Plan: Patient would benefit from the following modification on next visit: Continue with current POC and progress as needed. Recommend continued therapy to focus on improved mobility of left shoulder.. Rick Oconnor PTA [facility] ATTENTION PHYSICIAN If you are [...] (Latest Contact Info) Description 07/13/2024 9:00 AM REMELT PAN TANK OPERATOR Hospital Encounter [facility] GI Lab [address] [place] [address] Jaya Grier MD [facility] [facility] [address] [place] [address] 07/13/2024 9:00 AM REMELT PAN TANK OPERATOR - 07/13/2024 9:30 AM REMELT PAN TANK OPERATOR Surgery [facility] GI Lab [address] [place] [address] Jaya Grier MD [facility] [address] [place] [address] ESOPHAGOGASTRODUODENOSCOPY Scheduled Procedures Name Priority Associated Diagnoses Date/Ti me ESOPHAGOGASTRODUODENOSCOPY Anemia, unspecified type Gastritis without bleeding, unspecified chronicity, unspecified gastritis type 07/13/2024 9:00 AM REMELT PAN TANK OPERATOR COLONOSCOPY Iron deficiency anemia due to chronic blood loss documented as of this encounter Visit Diagnoses Diagnosis Left shoulder pain, unspecified chronicity- Primary Anemia, unspecified type Gastritis without bleeding, unspecified chronicity, unspecified gastritis type documented in this encounter 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 06/26/2024 3:05 AM REMELT PAN TANK OPERATOR documented as of this encounter Care Teams Veterinary Livestock Inspector Relationship Specialty Start Date End Date Duane Callahan MD PCP - General Family Medicine 08/30/19 Mark Queen MD Consulting Physician Infectious Diseases 01/10/20 Rudolph Welch MD [address] [facility] [address] [place] [address] Consulting Physician Infectious Diseases 12/05/22 Markie Ryan MD [address] [facility] [address] [place] [address] Consulting Physician Nephrology 12/05/22 Dulce Vega, ALIREZA [address] [place] [address] [address] [place] [address] Director Of Infection Prevention 10/07/23 05/03/[address] [place] [address] [facility] [address] [place] [address] Consulting Physician Nephrology 10/22/23 Jaya Grier MD [address] [facility] [address] [place] [address] Consulting Physician Gastroenterology 02/01/24 documented as of this encounter
--- OUTSIDE RECORDS SUMMARY | 2024-07-04 04:02 | XMS_ITS | Encounter Summary ---
Author Organization [facility] Healthcare Address [address] [place] [address] Care Team Providers Care Windows Laptop Technician Name Role Phone Cherelle Corcoran MD Primary Care Pro vider Mark Queen MD Unavailable [phone] Rudolph Welch MD Unavailable Markie Ryan MD Unavailable Dulce Vega RN Unavailable Jimbo Strauss MD Unavailable Jaya Grier MD Unavailable Reason for Visit * Reason Comments Unsuccessful Phone Call 1 Encounter Details Date Type Department Care Team (Late st Contact Info) Description 02/10/2024 JOY IP Outreach [facility] Accountable Care Organization [address] [place] [address] Myranda Yoo LPN [address] [place] [address] [address] [place] [address] Social History Tobacco Use Types Packs/Day Years [...] the past 12 months has th e [email or web address], gas, oil, or water [employer] threatened to shut off services in your [...] often do you attend chur ch or islam services? More than 4 times per year 02/01/2024 Do you belong to any clubs o r organizations such as druze groups, unions, fraternal or athletic groups, or [...] place to sleep or slept in a nursing home (including now)? No 10/30/2023 Housing Stability [...] any time in the past 12 m [facility], were you homeless or living in a nursing home (including now)? No 02/01/2024 Personal Safety Answer Date Recorded Have you ever been in or are you currently in a harmful physical or emotional relationship or is someone making you feel afraid or unsafe? Denies 01/30/2024 Comments No Sex and Gender Information Value Date Recorded Sex Assigned at Not on file Legal Sex Female 9:03 AM OR DIRECTOR Gender Identity Female 02/08/2020 6:39 PM CDT Sexual Orientation Not on file documented as of this encounter Progress Notes * Myranda Yoo LPN - 02/10/2024 2:52 PM CDT First attempt for out reach for [facility] was unsuccessful. Voicemail left and patient will have follow up call tomorrow Myranda Yoo LPN Care Paper Stripper [facility] Medical Group Accountable Care Organization [phone] ' documented in this encounter Plan of Treatment Upcoming Encounters Date Type Department Care Team (Latest Contact Info) Description 07/13/2024 9:00 AM OR DIRECTOR Hospital Encounter [facility] [address] [place] [address] Jaya Grier MD [address] [facility] [address] [place] [address] 07/13/2024 9:00 AM OR DIRECTOR - 07/13/2024 9:30 AM OR DIRECTOR Surgery [facility] [address] [place] [address] Jaya Grier MD [address] [place] [address] [address] [place] [address] ESOPHAGOGASTRODUODENOSCOPY Scheduled Procedures Name Priority Associated Diagnoses Date/Ti me ESOPHAGOGASTRODUODENOSCOPY Anemia, unspecified type Gastritis without bleeding, unspecified chronicity, unspecified gastritis type 07/13/2024 9:00 AM OR DIRECTOR COLONOSCOPY Iron deficiency anemia due to chronic blood loss documented as of this encounter Visit Diagnoses Not on filedocumented in this encounter 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 06/26/2024 3:05 AM OR DIRECTOR documented as of this encounter Care Teams Windows Laptop Technician Relationship Specialty Start Date End Date Cherelle Corcoran MD PCP - General Family Medicine 08/30/19 Mark Queen MD Consulting Physician Infectious Diseases 01/10/20 Rudolph Welch MD [address] [facility] [address] [place] [address] Consulting Physician Infectious Diseases 12/05/22 Markie Ryan MD [address] [facility] [address] [place] [address] Consulting Physician Nephrology 12/05/22 Dulce Vega, ALIREZA [address] [place] [address] [address] [place] [address] Hall Director 10/07/23 05/03/24 [place] [address] [facility] [address] [place] [address] Consulting Physician Nephrology 10/22/23 Jaya Grier MD [address] [facility] [address] [place] [address] Consulting Physician Gastroenterology 02/01/24 documented as of this encounter
--- OUTSIDE RECORDS SUMMARY | 2024-07-04 04:02 | XMS_ITS | Encounter Summary ---
Author Organization [facility] Healthcare Address [address] [place] [address] Care Team Providers Care Device Repair Technician Name Role Phone Cherelle Corcoran MD Primary Care Pro vider Mark Queen MD Unavailable [phone] Rudolph Welch MD Unavailable [phone] Markie Ryan MD Unavailable Dulce Vega RN Unavailable Jimbo Strauss MD Unavailable [phone] Jaya Grier MD Unavailable Reason for Visit * Reason Comments Pain Encounter Details Date Type Department Care Team (Late st Contact Info) Description 02/05/2024 9:30 AM CDT Office Visit [facility] Medical Group Orthopedics and Sports Medicine [facility] [facility] [address] [place] [address] Perico Rapahel PA [address] [place] [address] [address] [place] [address] Primary osteoarthritis of left shoulder (Primary Dx); Complete tear of left rotator cuff, unspecified whether traumatic; Arthropathy of left shoulder; Left shoulder pain, unspecified chronicity Social History [...] any clubs o r organizations such as yazidism groups, unions, fraternal or athletic groups, or [...] on file Legal Sex Female 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 AM 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 Subjective/Objective Patient ID: Barbara Chakraborty is a 73 y.o. female. Chief Complaint Patient presents with Right Shoulder - Pain HPI: This is a 73-year-old female patient with a history of dialysis, diabetes, hypertension, hyperlipidemia with a history of current left shoulder pain. She states that over a week ago she was trying tolift her grandchild and felt sharp pain in the anterior left shoulder. She was seen a few days later in the emergency room on 03 December 2023. X-rays were taken showing no acute findings. She was initially seen by myself on 11 December 2023. We discussed the he is of the left shoulder showing moderate osteoarthritic changes of the AC and glenohumeral joints. We also noted obvious superior subluxation ofthe humeral head, indicative of chronic rotator cuff tear. We discussed options and I sent the patient for a fluoroscopically guided cortisone injection which was completed on 18 December 2023. We also sent the patient for formalized therapy. The patient did go to the emergency room at [facility] on 29 December 2023 with ongoing left shoulder pain and was evaluated there. She called our clinicon 04 January 2024 asking if she can get an MRI and so we did order the test. This was completed on 29 January 2024. She is in today for follow-up. She is in attendance with 2 of her family members. She states the fluoroscopically guided cortisone injection of the left shoulder that she received on 18 December 2023 did help quite a bit. The family member states that she seems to be much better since she has gotten the injection although she continues to have issues with pain. Ht 157.5 cm (5' 2 ) Wt 61.2 kg (135 lb) BMI 24.69 kg/m?? Current Outpatient Medications Medication Sig Dispense Refill [...] daily with breakfast flash glucose scanning reader [facility] Use Madhav 3 reader to scan Madhav 3 sensor 1 each 0 flash glucose sensor (FreeStyle Madhav 2 Sensor) kit Use to continually monitor glucose, change every 14 days 6 kit 3 fluticasone propionate (FLONASE) 50 mcg/actuation nasal spray Administer 2 sprays into each nostrildaily as needed for rhinitis FreeStyle Madhav 3 [place] mis Use Madhav 3 reader to scan [...] total) by mouth nightly 30 tablet 0 sucralfate (CARAFATE) suspension 1 gram/10 mL Take 10 mL (1 g total) by mouth 4 (four) times a day (with meals and nightly) 1200 mL 1 traMADoL (ULTRAM) 25 mg tablet Take 1 tablet (25 mg total) by mouth every 8 (eight) hours as neededfor pain 90 tablet 0 No current facility-administered medications for this visit. Review of Systems: Review of Systems Examination Vital signs reviewed. General Appearance: The patient is in no acute distress. Alert and oriented X3. Respiratory: Respirations are even and unlabored. The patient does not use accessory muscles of respiration. Psych: The patient is pleasant and cooperative and acts appropriately. Musculoskeletal: The skin over the left shoulder shows no erythema, no ecchymosis, no edema. The patient can forward flex the left shoulder to about 120??. She has 4/5 strength and pain with thumbs-down resistance similar findings to [place]'s testing. She can externally rotate to 30?? with 4/5 stre ngth and pain to resistance. Negative belly press test. She can internally rotate pocket level on the left side. Good brush cleaner strength. Positive radial pulse. Neurologically grossly intact. MRI of the left shoulder from 29 January 2024 shows: 1. Mild left supraspinatus and infraspinatus hypertrophic tendinopathy with superimposed full-thickness tear of the entirety of the supraspinatus tendon as well as anterior and mid fibers of the infraspinatus tendon with retraction of the torn tendon stumpsto the level of the superomedial humeral head and myotendinous junction just medial to the level ofthe glenoid. Severe chronic fatty atrophy of the supraspinatus and superior half fibers of the infraspinatus muscle 2. Moderate left subscapularis hypertrophic tendinopathy with undersurface tendon fraying as well as partial-thickness undersurface tear of its superior fibers involving greater than 50% of tendon thickness. Mild chronic fatty atrophy subscapularis muscle. 3. Nonvisualization of the extra-articular long head biceps tendon in the proximal bicipital grooveas well as intra-articular long head biceps tendon reflective of a chronic tear. 4. Moderate left glenohumeral joint chondrosis reflective of rotator cuff arthropathy. Small left glenohumeral joint effusion with slight synovitis extending to the subacromial subdeltoid and subdeltoid bursa due to full- thickness rotator cuff tear. 5. Moderate left acromioclavicular joint osteoarthritis. Procedures (M19.012) Primary osteoarthritis of left shoulder (primary encounter diagnosis) (M75.122) Complete tear of left rotator cuff, unspecified whether traumatic (M19.012) Arthropathy of left shoulder (M25.512) Left shoulder pain, unspecified chronicity Diagnoses and all orders for this visit: Primary osteoarthritis of left shoulder (Primary) Complete tear of left rotator cuff, unspecified whether traumatic Arthropathy of left shoulder Left shoulder pain, unspecified chronicity Assessment/Plan We discussed the MRI results at length. At this juncture we will continue with formalized therapy. I will have the patient follow up with Dr. Bacon to consider surgical intervention. Continue with current pain medications as needed. Follow up sooner as needed. 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 Hospital Encounter [facility] [address] [place] [address] Jaya Grier MD [address] [facility] [address] [place] [address] 07/13/2024 9:00 AM 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 - 07/13/2024 9:30 AM 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 Surgery [facility] [address] [place] [address] Jaya Grier MD [address] [facility] [address] [place] [address] ESOPHAGOGASTRODUODENOSCOPY Scheduled Procedures Name Priority Associated Diagnoses Date/Ti me ESOPHAGOGASTRODUODENOSCOPY Anemia, unspecified type Gastritis without bleeding, unspecified chronicity, unspecified gastritis type 07/13/2024 9:00 AM 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 COLONOSCOPY Iron deficiency anemia due to chronic blood loss documented as of this encounter Visit Diagnoses Diagnosis Primary osteoarthritis of left shoulder- Primary Complete tear of left rotator cuff, unspecified whether traumatic Arthropathy of left shoulder Left shoulder pain, unspecified chronicity Anemia, unspecified type Gastritis without bleeding, unspecified chronicity, unspecified gastritis type documented in this encounter 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 06/26/2024 3:05 AM 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 documented as of this encounter Care Teams Device Repair Technician Relationship Specialty Start Date End Date Cherelle Corcoran MD PCP - General Family Medicine 08/30/19 Mark Queen MD Consulting Physician Infectious Diseases 01/10/20 Rudolph Welch MD [address] [facility] [address] [place] [address] Consulting Physician Infectious Diseases 12/05/22 Markie Ryan MD [address] [facility] [address] [place] [address] Consulting Physician Nephrology 12/05/22 Dulce Vega, RN [address] [place] [address] [address] [place] [address] Induction Heat Treater 10/07/23 05/03/24 [place] [address] [address] [place] [address] Consulting Physician Nephrology 10/22/23 Jaya Grier MD [address] [facility] [address] [place] [address] Consulting Physician Gastroenterology 02/01/24 documented as of this encounter
--- OUTSIDE RECORDS SUMMARY | 2024-07-04 04:02 | XMS_ITS | Encounter Summary ---
Author Organization [facility] Healthcare Address [address] [place] [address] Care Team Providers Care Microphone Boom Operator Name Role Phone Duane Callahan MD Primary Care Pro vider Mark Queen MD Unavailable [phone] Rudolph Welch MD Unavailable Markie Ryan MD Unavailable [phone] Dulce Vega RN Unavailable [phone] Jimbo Strauss MD Unavailable Jaya Grier MD Unavailable Reason for Visit * Reason Comments PT Treatment * Physical Therapy (Routine) - Closed Specialty Diagnoses / Procedures Referred By Contac t Referred To Contact Physical Therapy Diagnoses Acute pain of left shoulder Perico Raphael, ANAY [address] [facility] [place] [address] Phone: tel: fax: [address] [phone] Referral ID Status Reason Start Date Expiration Date V isits Requested Visits Authorized [id number] Closed Evaluate and Treat 12/11/2023 06/21/2024 16 30 Encounter Details Date Type Department Care Team (Late st Contact Info) Description 02/11/2024 10:45 AM CDT Therapy [facility] Medical Office Bldg 1 OP Physical Therapy [address] [address] Cheri Benítez, ASSOCIATE MANAGER Left shoulder pain, unspecified chronicity (Primary [...] materials from doctor or pharmacy Often 01/20/2024 [facility] Utilities Answer Date Recorded In the past 12 months has th e [employer], gas, oil, or water [employer] threatened to shut off services in your [...] How often do you attend chur or mosque services? More than 4 times per year 02/01/2024 Do you belong to any clubs o r organizations such as latter day groups, unions, fraternal or athletic groups, or [...] any time in the past 12 m [facility], were you homeless or living in a custodial (including now)? No 02/01/2024 Personal Safety Answer Date Recorded Have you ever been in or are you currently in a harmful physical or emotional relationship or is someone making you feel afraid or unsafe? 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 Left shoulder [...] Date Date Date Date 01/26/24 02/09/24 02/11/24 Visit Number 1 2 3 ADDITIONAL HEP SHEETS ISSUED NuStep Arms LV 3 x 5 mins L3 x 5 min A - 10 Pulleys Flexion 2' 2' 2' Pulleys ABD 2' 2' 2 Supine wand flexion 15 15' 10x Supine wand ER / IR 15 15' 2 x 10 SCap squeezes 15 20' 2 x 10 SL ER - LEFT 10 2 x 10 Seated Shoulder Flexion with cane 15x 2 x 10 L shoulder PROM 10' 10' declined Progress Note/Re-Cert * Cheri Benítez PTA - 02/11/2024 10:45 AM CDT Images from the original note were not included. Physical Therapy Visit/Daily Note 02/11/2024 Barbara Chakraborty 1950 ICD-10-CM 1. Left shoulder pain, unspecified chronicity M25.512 DUANE CALLAHAN [employer] Utilized: NO Patient is identified by name and date of on this visit. Subjective: Pt reports her shoulder is about the same . Pts family member accompanied patient this visit reporting patient take OTC Tylenol BID and uses heat for pain relief with minimal changes. Pt is reporting continued difficulty with constant shoulder pain. Pain today is 7/10 then rates 9/10 with clinic activity. Changes since last visit include unchanged. Objective: Objective Measurement/Observation: AROM: left shoulder flexion 45 degrees, AAROM in standing with cane: to 90 degrees and screams in pain with descent movement; in hook lying able to tolerate x 9 reps to 90 degrees with pain relief and muscle fatigue noted. Palpation: attempted PROM with STM to left shoulder, patient begins guarding and grimacing away from clinician. Held this date. Specific exercises and treatment interventions are outlined on exercise worksheet document. Treatment Performed on This Visit: Manual Therapy (body part and techniques): NT Therapeutic Procedure/Exercise:L shoulder mobility Modalities:nt HEP given: established, non-compliant Patient education: purpose of consistent ROM to left shoulder to decrease risk for frozen shoulder or further immobility. Family member suggested taking Tylenol TID or as directed for pain on the bottle. Assessment: The patient demonstrated a fair response to today's treatment as evidenced by these objective findings: guarding and resistance against further exercises after activity x 22 minutes however able to perform 7 exercises x 10 reps with A/AAROM. The patient is making expected progress toward STG # 1-3 and LTG # 1-3 as evidenced by changes in slow linear shoulder pain and mobility. The patient continues to demonstrate deficits with pain control and improved left shoulder mobility for OH function andstrength for reaching and grasping. Plan: Patient would benefit from the following modification on next visit: continue to progress within the POC as pt tolerates. Recommend continued therapy to focus on improved mobility of L shoulder. Cheri Benítez, [facility] ATTENTION PHYSICIAN If you [...] (Latest Contact Info) Description 07/13/2024 9:00 AM CHIEF INFORMATICS OFFICER Hospital Encounter [facility] [address] [place] [address] Jaya Grier MD [facility] [address] [place] [address] 07/13/2024 9:00 AM CHIEF INFORMATICS OFFICER - 07/13/2024 9:30 AM CHIEF INFORMATICS OFFICER Surgery [facility] [address] [place] [address] Jaya Grier MD [facility] [address] [place] [address] ESOPHAGOGASTRODUODENOSCOPY Scheduled Procedures Name Priority Associated Diagnoses Date/Ti tx ESOPHAGOGASTRODUODENOSCOPY Anemia, unspecified type Gastritis without bleeding, unspecified chronicity, unspecified gastritis type 07/13/2024 9:00 AM CHIEF INFORMATICS OFFICER COLONOSCOPY Iron deficiency anemia due to chronic blood loss documented as of this encounter Visit Diagnoses Diagnosis Left shoulder pain, unspecified chronicity- Primary Anemia, unspecified type Gastritis without bleeding, unspecified chronicity, unspecified gastritis type documented in this encounter 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 06/26/2024 3:05 AM CHIEF INFORMATICS OFFICER documented as of this encounter Care Teams Microphone Boom Operator Relationship Specialty Start Date End Date Duane Callahan MD PCP - General Family Medicine 08/30/19 Mark Queen MD Consulting Physician Infectious Diseases 01/10/20 Rudolph Welch MD [address] [facility] [address] [place] [address] Consulting Physician Infectious Diseases 12/05/22 Markie Ryan MD [address] [facility] [address] [place] [address] Consulting Physician Nephrology 12/05/22 Dulce Vega, ALIREZA [address] [place] [address] [address] [place] [address] Account Maintenance Representative 10/07/23 05/03/24 [place] [address] [facility] [address] [place] [address] Consulting Physician Nephrology 10/22/23 Jaya Grier MD [address] [facility] [address] [place] [address] Consulting Physician Gastroenterology 02/01/24 documented as of this encounter
--- OUTSIDE RECORDS SUMMARY | 2024-07-04 04:02 | XMS_ITS | Encounter Summary ---
Author Organization [facility] Healthcare Address [address] [place] [address] Care Team Providers Care Public Relations Supervisor Name Role Phone Cherelle Corcoran MD Primary Care Pro vider Mark Queen MD Unavailable [phone] Rudolph Welch MD Unavailable Markie Ryan MD Unavailable Dulce Vega RN Unavailable Jimbo Strauss MD Unavailable [phone] Jaya Grier MD Unavailable Reason for Visit * Reason Onset Date Comments JOY Questions 02/05/2024 Encounter Details Date Type Department Care Team ([facility] st Contact Info) Description 02/05/2024 Telephone [facility] Primary Care at [address] [place] [address] Cherelle Corcoran MD [facility] [address] [place] [address] JOY Questions Social History Tobacco [...] materials from doctor or pharmacy Often 01/20/2024 [facility] Utilities Answer Date Recorded In [...] any clubs o r organizations such as zoroastrianism groups, unions, fraternal or athletic groups, or [...] any time in the past 12 m [facility], were you homeless or [...] on file Legal Sex Female 9:03 AM EXHIBITION CARVER Gender Identity Female 02/08/2020 6:39 PM CDT Sexual Orientation Not on file documented as of this encounter Miscellaneous Notes * Telephone Encounter - Sandy Mota MA - 02/08/2024 10:58 AM CDT Rescheduled to 02/09/2024 * Telephone Encounter - Indira Gomes - 02/05/2024 4:48 PM CDT LMTC and RS. Ok to transfer to [facility] * Telephone Encounter - Usha Bautista - 02/05/2024 3:43 PM CDT JOY Questions (Message from [facility] Access Center-Rail Signal Designer): Has patient been discharged at time of call? Yes Date Admitted: 01/29/24 Date Discharged: 02/01/24 Facility Admitted To: [facility] Reason for Stay? Upper GI Bleeding If prescribed new medications, do you have any questions or concerns? Has not been able to get carafate yet Do you have enough medication to get you to your follow-up appointment? Has not been able to get carafate yet Since being released do you feel better, the same, or worse? Better, but has developed a cough and runny nose since being released Date of JOY Appointment: 02/11/24 Do you have transportation to the appointment? Yes Additional Comments: Patient's daughter called to reschedule 02/10 JOY appt as patient has dialysis that day. AERONAUTICAL ENGINEERING OFFICER unable to reschedule as nothing is available within 10 days of discharge. Patient's daughter states she has dialysis Tuesdays, , and Saturdays. Does message need to be routed? Yes-Action Needed documented in this encounter Plan of Treatment Upcoming Encounters Date Type Department Care Team (Latest Contact Info) Description 07/13/2024 9:00 AM EXHIBITION CARVER Hospital Encounter [facility] GI Lab [address] [place] [address] Jaya Grier MD [address] [address] 07/13/2024 9:00 AM EXHIBITION CARVER - 07/13/2024 9:30 AM EXHIBITION CARVER Surgery 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 06/26/2024 3:05 AM EXHIBITION CARVER documented as of this encounter Care Teams Public Relations Supervisor Relationship Specialty Start Date End Date Cherelle Corcoran MD PCP - General Family Medicine 08/30/19 Mark Queen MD Consulting Physician Infectious Diseases 01/10/20 Rudolph Welch MD [address] [facility] [address] [place] [address] Consulting Physician Infectious Diseases 12/05/22 Markie Ryan MD [address] [facility] [address] [place] [address] Consulting Physician Nephrology 12/05/22 Dulce Vega, ALIREZA [address] [place] [address] [address] [place] [address] Nuclear Plant Construction Worker 10/07/23 05/03/24 [place] [address] [address] [facility] [address] [place] [address] Consulting Physician Nephrology 10/22/23 Jaya Grier MD [address] [facility] [address] [place] [address] Consulting Physician Gastroenterology 02/01/24 documented as of this encounter
--- OUTSIDE RECORDS SUMMARY | 2024-07-04 04:02 | XMS_ITS | Encounter Summary ---
Author Organization [facility] Healthcare Address [address] [place] [address] Care Team Providers Care Energy Sales Broker Name Role Phone Duane Callahan MD Primary Care Pro vider Mark Queen MD Unavailable [phone] Rudolph Welch MD Unavailable Markie Ryan MD Unavailable [phone] Dulce Vega RN Unavailable [phone] Jimbo Strauss MD Unavailable [phone] Jaya Grier MD Unavailable Reason for Visit * Reason Comments PT Treatment * Physical Therapy (Routine) - Closed Specialty Diagnoses / Procedures Referred By Contac t Referred To Contact Physical Therapy Diagnoses Acute pain of left shoulder Perico Raphael, ANAY [address] [facility] [place] [address] Phone: tel: fax: [address] [address] Referral ID Status Reason Start Date Expiration Date V isits Requested Visits Authorized [id number] Closed Evaluate and Treat 12/11/2023 06/21/2024 16 30 Encounter Details Date Type Department Care Team (Late st Contact Info) Description 02/25/2024 10:45 AM CDT Therapy [facility] Medical Office Bldg 1 OP Physical Therapy [address] [address] Rick Oconnor, ANG Left shoulder pain, unspecified [...] No 01/20/2024 OASIS B1300: Health Literacy Answer Fuetnes e Recorded Frequency of needing help to read materials from doctor or pharmacy Often 01/20/2024 [facility] Utilities Answer Date Recorded In the past 12 months has th e [employer], gas, oil, or water [employer] threatened to shut off services in your [...] How often do you attend chur or denominational services? More than 4 times per year 02/01/2024 Do you belong to any clubs o r organizations such as oriental orthodox groups, unions, fraternal or athletic groups, [...] any time in the past 12 m [facility], were you homeless or living in [...] on file Legal Sex Female 9:03 AM DIGITAL LIBRARIAN Gender Identity Female 02/08/2020 6:39 PM CDT Sexual Orientation Not on file documented as of this encounter Progress Notes * AnastasiaRick reeves, HALL CLERK - 02/25/2024 10:45 AM CDT ICD-10-CM 1. Left shoulder [...] weeks) Date Date Date Date Date Date 01/26/24 02/09/24 02/11/24 02/16/24 02/23/24 02/25/24 Visit Number 1 2 3 4 5 6 ADDITIONAL HEP SHEETS ISSUED NuStep Arms LV 3 x 5 mins L3 x 5 min A - 10 L3 x 5 min A-10 L-4, A=8, 5 min L-4, A=9, 5 min Pulleys Flexion 2' 2' 2' 2' 3 min 2 min Pulleys ABD 2' 2' 2 NT 3 min Supine wand flexion 15 15' 10x 10x 10 x 10 x Supine wand ER / IR 15 15' 2 x 10 x20 15 x 15 x SCap squeezes 15 20' 2 x 10 2 x 10 10 x 2 10 x 2 SL ER - LEFT 10 2 x 10 x10 Seated Shoulder Flexion with cane 15x 2 x 10 x10 10 x 10 x L shoulder PROM 10' 10' declined Declined Gentle 5 min Gentle 5 min Progress Note/Re-Cert * Rick Oconnor PTA - 02/25/2024 10:45 AM CDT Images from the original note were not included. Physical Therapy Visit/Daily Note 02/25/2024 Barbara Chakraborty 1950 ICD-10-CM 1. Left shoulder pain, unspecified chronicity M25.512 DUANE CALLAHAN Repertoire Manager Services Utilized: NO Patient is identified by name and date of on this visit. Subjective: Pt states left shoulder painful with movement. Pt is reporting continued difficulty with left jaye activity. Pain today is 6-8/10. Changes since last visit include no significant changes. Objective: Objective Measurement/Observation: Patient attaining approx 93 deg of left shoulder flexion AAROM. Pt tolerates all exercises with limited range and technique noted; no adverse effects. Pt displays some irritation with left arm movement. Specific exercises and treatment interventions are outlined on exercise worksheet document. Treatment Performed on This Visit: Manual Therapy (body part and techniques): PROM.gentle Therapeutic Procedure/Exercise: See exercise sheet. Modalities: None. HEP given: None. Patient education: Cueing given during exercise completion as needed.. Assessment: The patient demonstrated a fair response to today's treatment as evidenced by these objective findings: slight improvement in abduction. The patient is making expected progress toward STG # 1-3 as evidenced by changes in improved right shoulder ROM and mobility.The patient continues to demonstrate deficits with pain during movement. Plan: Patient would benefit from the following modification on next visit: Continue with current POC and progress as needed. Recommend continued therapy to focus on strengthening of left shoulder. and continued therapy to focus on improved mobility of left shoulder... Rick Oconnor PTA [facility] Services ATTENTION PHYSICIAN If you are unable [...] (Latest Contact Info) Description 07/13/2024 9:00 AM DIGITAL LIBRARIAN Hospital Encounter [facility] GI Lab [address] [place] [address] Jaya Grier MD [address] [place] [address] [address] [place] [address] 07/13/2024 9:00 AM DIGITAL LIBRARIAN - 07/13/2024 9:30 AM DIGITAL LIBRARIAN Surgery [facility] GI Lab [address] [place] [address] Jaya Grier MD [facility] [facility] [address] [place] [address] ESOPHAGOGASTRODUODENOSCOPY Scheduled Procedures Name Priority Associated Diagnoses Date/Ti az ESOPHAGOGASTRODUODENOSCOPY Anemia, unspecified type Gastritis without bleeding, unspecified chronicity, unspecified gastritis type 07/13/2024 9:00 AM DIGITAL LIBRARIAN COLONOSCOPY Iron deficiency anemia due to chronic blood loss documented as of this encounter Visit Diagnoses Diagnosis Left shoulder pain, unspecified chronicity- Primary Anemia, unspecified type Gastritis without bleeding, unspecified chronicity, unspecified gastritis type documented in this encounter 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 06/26/2024 3:05 AM DIGITAL LIBRARIAN documented as of this encounter Care Teams Energy Sales Broker Relationship Specialty Start Date End Date Duane Callahan MD PCP - General Family Medicine 08/30/19 Mark Queen MD Consulting Physician Infectious Diseases 01/10/20 Rudolph Welch MD [address] [facility] [address] [place] [address] Consulting Physician Infectious Diseases 12/05/22 Markie Ryan MD [address] [facility] [address] [place] [address] Consulting Physician Nephrology 12/05/22 Dulce Vega, ALIREZA [address] [place] [address] [address] [place] [address] Noxious Weeds And Pest Inspector 10/07/23 05/03/24 [place] [address] [place] [address] Consulting Physician Nephrology 10/22/23 Jaya Grier MD [address] [facility] [address] [place] [address] Consulting Physician Gastroenterology 02/01/24 documented as of this encounter
--- OUTSIDE RECORDS SUMMARY | 2024-07-04 04:03 | XMS_ITS | Encounter Summary ---
Author Organization [facility] Healthcare Address [address] [place] [address] Care Team Providers Care Warehouse Guard Name Role Phone Cherelle Corcoran MD Primary Care Pro vider Mark Queen MD Unavailable [phone] Rudolph Welch MD Unavailable [phone] Markie Ryan MD Unavailable [phone] Dulce Vega RN Unavailable Jimbo Strauss MD Unavailable [phone] Jaya Grier MD Unavailable Reason for Visit * Reason Onset Date Comments Case Management- Primary Care 01/29/2024 Pl an to go to ED Encounter Details Date Type Department Care Team (Late st Contact Info) Description 01/29/2024 Telephone [facility] Medical Group Primary Care at [address] [place] [address] Cherelle Corcoran MD [facility] [address] [address] Case Management- Primary Care (Plan to go to ED) Social History Tobacco Use Types Packs/Day [...] In the past 12 months has e [employer], gas, oil, or water company threatened to [...] often do you attend chur ch or uatsdin services? More than 4 times per year 02/01/2024 Do you belong to any clubs o r organizations such as worship groups, unions, fraternal or athletic groups, or [...] any time in the past 12 m [facility], were you homeless or living in [...] on file Legal Sex Female 9:03 AM DATA SUPPORT ANALYST Gender Identity Female 02/08/2020 6:39 PM CDT Sexual Orientation Not on file documented as of this encounter Miscellaneous Notes * Telephone Encounter - Svetlana, HONEY Delgado - 01/29/2024 3:42 PM CDT Acknowledged. * Telephone Encounter - Shelly Enriquez - 01/29/2024 3:16 PM CDT Call Back Caller???s Concern: Areli returning call from office. Relayed message from Sandy. Caller understands - no additional questions. Does message need to be routed? No * Telephone Encounter - Sandy Mota MA - 01/29/2024 12:59 PM CDT Lmov for pt daughter to return call. There is no provider in the office today. Recommend she go to ED for evaluation given symptoms. * Telephone Encounter - Dulce Vega RN - 01/29/2024 12:20 PM CDT Zhou, my name is Dulce and I am a [facility] Nurse Steward/Stewardess Room. Situation: I spoke with this patient's daughter who plans to take patient to ED after MRI today. Symptoms s reported include: ankle and face puffiness, nausea with occasional emesis that has been present for several weeks, 'not looking like herself,' and ' glassy eyes. Completed dialysis yesterday and scheduled to go again tomorrow. Declined convenient care, urgent care, contacting Neph or same day sick appt. Nursing Recommendation/Action(s): Could somebody from the office contact the daughter to advise, please? Thank you, Dulce IRELAND, RN, [facility] - ACO Steward/Stewardess Room [phone] documented in this encounter Plan of Treatment Upcoming Encounters Date Type Department Care Team (Latest Contact Info) Description 07/13/2024 9:00 AM DATA SUPPORT ANALYST Hospital Encounter [facility] GI Lab [address] [place] [address] Jaya Grier MD [address] [facility] [address] [place] [address] 07/13/2024 9:00 AM DATA SUPPORT ANALYST - 07/13/2024 9:30 AM DATA SUPPORT ANALYST Surgery [facility] GI Lab [address] [place] [address] Jaya Grier MD [address] 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 [address] [place] [address] Consulting Physician Infectious Diseases 12/05/22 Markie Ryan MD [address] [facility] [address] [place] [address] Consulting Physician Nephrology 12/05/22 Dulce Vega, ALIREZA [address] [place] [address] [address] [place] [address] Steward/Stewardess Room 10/07/23 05/03/24 [place] [address] [facility] [address] [place] [address] Consulting Physician Nephrology 10/22/23 Jaya Grier MD [address] [facility] [address] [place] [address] Consulting Physician Gastroenterology 02/01/24 documented as of this encounter
--- OUTSIDE RECORDS SUMMARY | 2024-07-04 04:03 | XMS_ITS | Encounter Summary ---
Author Organization [facility] Healthcare Address [address] [place] [address] Care Team Providers Care Non Destructive Testing Supervisor Name Role Phone Cherelle Corcoran MD Primary Care Pro vider Mark Queen MD Unavailable [phone] Rudolph Welch MD Unavailable [phone] Markie Ryan MD Unavailable [phone] Dulce Vega RN Unavailable [phone] Jimbo Strauss MD Unavailable [phone] Reason for Referral * Diagnostic Imaging (Routine) - Closed Specialty Diagnoses / Procedures Referred By Contac t Referred To Contact Diagnoses Post-menopausal Procedures Dexa Axial Skeleton Bone Density 1 or 2 Site Cherelle Corcoran MD [address] [place] [id number] Phone: tel: fax: [address] [phone] Referral ID Status Reason Start Date Expiration Date Visits Re quested Visits Authorized [id number] Closed 11/10/2023 12/09/2024 1 1 Reason for Visit * Diagnostic Imaging (Routine) - Closed Specialty Diagnoses / Procedures Referred By Contac t Referred To Contact Diagnoses Post-menopausal Procedures Dexa Axial Skeleton Bone Density 1 or 2 Site Cherelle Corcoran MD [address] [address] Phone: tel: fax: [address] [phone] Referral ID Status Reason Start Date Expiration Date Visits Re quested Visits Authorized [id number] Closed 11/10/2023 12/09/2024 1 1 Encounter Details Date Type Department Care Team (Latest Contact Info) Description 01/22/2024 11:58 AM CDT - 01/22/2024 11:59 PM CDT Hospital Encounter [facility] [address] [facility] [address] [place] [address] Post-menopausal Discharge Disposition: Discharge to home or self [...] materials from doctor or pharmacy Often 01/20/2024 [facility] Utilities Answer Date Recorded In the past 12 months has th e electric, gas, oil, or water company threatened to shut off services in your home? No 12/21/2023 Social Connection and Isolat ion Panel [NHANES] Answer Date Recorded In a typical week, how many times do you talk on the phone with family, friends, or neighbors? More than three times a week 12/21/2023 How often do you get togethe r with friends or relatives? More than three times a week 12/21/2023 How often do you attend chur ch or episcopal services? More than 4 times per year 12/21/2023 Do you belong to any clubs o r organizations such as congregation groups, unions, fraternal or athletic groups, or school groups? No 12/21/2023 How often do you attend meet ings of the clubs or organizations you belong to? Never 12/21/2023 Are you , , di vorced, , never , or living with a partner? 12/21/2023 AUDIT-C Answer Date Recorded Q1: How often do you have a drink containing alcohol? Never 12/18/2023 Q2: How many drinks containi ng alcohol do you have on a typical day when you are drinking? Patient does not drink Frequency of Binge Drinking Not on file 11/21 Overall Financial Resource Strain (CARDIA) Answe r Date Recorded How hard is it for you to pa y for the very basics like food, housing, medical care, and heating? Not very hard 12/21/2023 PHQ-2 Answer Date Recorded PHQ-2 Total Score (If total score is 3 or more points, staff should administer the PHQ-9) 2 11/10/2023 Hunger Vital Sign Answer Date Recorded Within the past 12 months, y ou worried that your food would run out before you got the money to buy more. Never true 12/21/19 24 Within the past 12 months, t he food you bought just didn't last and you didn't have money to get more. Never true 12/21/2023 PRAPARE - Transportation Answer Date Re corded In the past 12 months, has l ack of transportation kept you from medical appointments or from getting medications? No 06/2023 In the past 12 months, has l ack of transportation kept you from meetings, work, or from getting things needed for daily living? No 12/21/2023 Housing Stability Vital Sign Answer Fuentes e [...] place to sleep or slept in a residential (including now)? No 10/30/2023 Housing Stability Vital Sign Answer Fuentes e Recorded In the last 12 months, was t here a time when you were not able to pay the mortgage or rent on time? No 12/21/2023 In the past 12 months, how m any times have you moved where you were living? 0 12/21/2023 At any time in the past 12 m [facility], were you homeless or living in a residential (including now)? No 12/21/2023 Personal Safety Answer Date Recorded Have you ever been in or are you currently in a harmful physical or emotional relationship or is someone making you feel afraid or unsafe? 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 Gender Identity Female 02/08/2020 6:39 PM CDT [...] as needed for rhinitis FreeStyle Madhav 3 [place] misc Use Madhav 3 reader to scan Madhav 3 sensor 09/25/2023 insulin glargine 100 unit/mL (3 mL) pen [...] daily as needed (Constipation) 595 g 10/22/2023 sucroferric oxyhydroxide 500 mg tablet,chewable Take 0.5 tablets by mouth 3 (three) times a day aspirin 81 mg chewable tablet Take 1 tablet (81 mg total) by mouth daily 12/28/2023 04/12/20 24 benztropine (COGENTIN) 1 mg tablet 01/08/2024 02/01/20 24 benztropine (COGENTIN) 2 mg tablet Take 1 tablet (2 mg total) by mouth daily 30 tablet 12/25/2023 02/01/20 24 calcium acetate,phosphat bind, (PHOSLO) 667 mg capsule TAKE 1 CAPSULE(667 MG) BY MOUTH THREE TIMES DAILY WITH MEALS 270 capsule 10/29/2023 04/06/20 24 carvediloL (COREG) 3.125 mg tablet Take 1 tablet (3.125 mg total) by mouth 2 (two) times a day with meals 180 tablet 3 12/18/2023 02/11/20 24 diclofenac sodium (VOLTAREN) 1 % gel Apply 4 g topically 3 (three) times a day 100 g 12/30/2023 02/01/20 24 famotidine (PEPCID) 10 mg tablet Take 1 tablet (10 mg total) by mouth daily 02/01/20 24 FeroSuL 325 mg (65 mg iron) [...] with type 2 diabetes mellitus (CMS/HCC) (HCC) Take 100 mg 3 times per week after hemodialysis. 12 capsule 1 01/11/2024 03/01/20 24 hydrALAZINE (APRESOLINE) 25 mg tabletIndications:h ypertension Take 2 tablets (50 mg total) by mouth 3 (three) times a day 180 tablet 01/06/2024 02/01/20 24 NIFEdipine (NIFEdipine CC) 60 mg 24 hr tabletIndications:U ncontrolled hypertension TAKE 1 TABLET BY MOUTH DAILY 90 tablet 01/11/2024 05/02/20 24 risperiDONE (RisperDAL) 2 mg tablet Take 1 tablet (2 mg total) by mouth nightly 30 tablet 12/25/2023 02/01/20 24 traMADoL (ULTRAM) 25 mg tabletIndications:A rthropathy [...] (Latest Contact Info) Description 07/13/2024 9:00 AM [facility] Hospital Encounter [facility] [address] [place] [address] Jaya rGier MD [facility] [facility] [address] [place] [address] 07/13/2024 9:00 AM 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 - 07/13/2024 9:30 AM [facility] Surgery [facility] [address] [place] [address] Jaya Grier MD [address] [place] [address] ESOPHAGOGASTRODUODENOSCOPY Scheduled Procedures Name Priority Associated Diagnoses Date/Ti me ESOPHAGOGASTRODUODENOSCOPY Anemia, unspecified type Gastritis without bleeding, unspecified chronicity, unspecified gastritis type 07/13/2024 9:00 AM SHANK BURNISHER COLONOSCOPY Iron deficiency anemia due to chronic blood loss documented as of this encounter Procedures Procedure Name Priority Date/Time Associated Diagnosis Comments DEXA AXIAL SKELETON BONE DENSITY 1 OR MORE SITES Schedule Routine, Read Routine (OP Routine) 01/22/2024 12:32 PM CDT Post-menopausal documented in this encounter Results * Dexa Axial Skeleton Bone Density 1 [...] vitamin-D. ??History of end-stage renal disease. ? Application Technician/Model: Orderlord A (S/N [id number]) CLINICAL INFORMATION: Current height: ??61 ??inches ? [...] PM T: ??01/22/2024 1:02 PM Report ID: [id number] Reading Location: ??[id number] Procedure Note Rafaela Paulino MD - 01/22/2024 EXAM DESCRIPTION: DEXA AXIAL SKELETON BONE DENSITY 1 OR MORE SITES REASON FOR STUDY: 73 y/o year old F with given history of: Post menopausal status. History of taking vitamin-D. History of end-stagerenal disease. Application Technician/Model: Orderlord A (S/N [id number]) CLINICAL INFORMATION: Current height: 61 inches Maximum [...] Rafaela Paulino M.D. 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 06/26/2024 3:05 AM SHANK BURNISHER documented as of this encounter Care Teams Non Destructive Testing Supervisor Relationship Specialty Start Date End Date Cherelle Corcoran MD PCP - General Family Medicine 08/30/19 Mark Queen MD Consulting Physician Infectious Diseases 01/10/20 Rudolph Welch MD [address] [address] [place] [address] Consulting Physician Infectious Diseases 12/05/22 Markie Ryan MD [address] [facility] [address] [place] [address] Consulting Physician Nephrology 12/05/22 Dulce Vega RN [address] [place] [address] [address] [place] [address] Gas Leak Inspector 10/07/23 05/03/24 [place] [address] [facility] [address] [place] [address] Consulting Physician Nephrology 10/22/23 documented as of this encounter
--- OUTSIDE RECORDS SUMMARY | 2024-07-04 04:03 | XMS_ITS | Encounter Summary ---
Author Organization [facility] Healthcare Address [address] [place] [address] Care Team Providers Care Machinery Mover Name Role Phone Cherelle Corcoran MD Primary Care Pro vider Mark Queen MD Unavailable [phone] Rudolph Welch MD Unavailable Markie Ryan MD Unavailable Dulce Vega RN Unavailable Jimbo Strauss MD Unavailable [phone] Reason for Visit * Auth/Cert (Routine) Specialty Diagnoses / Procedures Referred By Contac t Referred To Contact Diagnoses Acute blood loss anemia Upper GI bleeding ESRD (end stage renal disease) on dialysis (HCC) Hypertension, unspecified type Complete tear of left rotator cuff, unspecified whether traumatic Procedures na Referral ID Status Reason Start Date Expiration Date Visits Re quested Visits Authorized [id number] 1 1 Encounter Details Date Type Department Care Team (Late st Contact Info) Description 01/31/2024 1:10 PM CDT Anesthesia Event [facility] [address] [place] [address] Alvarado Ng MD [facility] [place] [address] [phone] (work) Anesthesia Record Procedure Summary Procedure Name Responsible Anesthesiologist Anesthesia Start Time Anesthesia Stop Time ESOPHAGOGASTRODUODENOSCOPY BIOPSY Alvarado Ng MD 01/31/24 1310 01/31/24 1345 Events Date Time Event Comment 01/31/2024 1230 1305 In Room 1310 An Start 1311 An Start Data 1319 An Induction The patient was reevaluated immediately before moderate or deep sedation use and before anesthesia induction. 1320 Anesthesia Ready 1321 Proc Start 1334 Proc Fin 1344 an stop data 1345 Handoff to RN I completed my handoff [...] Patient disposition at the time of handoff: PACU 1345 An Stop 1345 Out of Room 1435 Release from care Meds Name Total propofol 120 mg NS 0.9% 100 mL * Agents Name O2% N2O O2 [...] Kita Spencer, ALIREZA Peripheral IV Placement Date: 01/29/24; Placement Time: 1948; Catheter Size: 20 G; Orientation: Anterior, Proximal, Right; Location: Forearm; Site Prep: Chlorhexidine; Technique: Ultrasound guidance; Inserted by: miri patel rn; Insertion Attempts: 1; Patient Tolerance: Tolerated well; Removal Date: 02/01/24; Removal Time: 1340; Removal Reason: Discharge 01/29/241948 by Ra Patel RN 02/01/241340 by Kim Alves RN Peripheral IV Placement Date: 01/29/24; Placement Time: 2351; Catheter Size: 20 G; Orientation: Left, Posterior; Location: Wrist; Removal Date: 02/01/24; Removal Time: 1340; Removal Reason: Discharge 01/29/242351 by Lulú Kelly RN 02/01/24 1341 by Kim Alves, ALIREZA External Urinary Device 01/30/24; 0214; Lulú LAY; 02/01/24 01/30/24 0214 by Lulú Kelly RN 02/01/24 0000 by Kim Alves, ALIREZA documented in this encounter Social History Tobacco [...] No 01/20/2024 OASIS B1300: Health Literacy Answer Funetes e Recorded Frequency of needing help to read materials from doctor or pharmacy Often 01/20/2024 [facility] Utilities Answer Date Recorded In the past 12 months has e electric, gas, oil, or water [employer] threatened to shut off services in your [...] any time in the past 12 m onths, were you homeless or living in a [...] on file Legal Sex Female 9:03 AM DISABILITIES CAREGIVER Gender Identity Female 02/08/2020 6:39 PM CDT Sexual Orientation Not on file documented as of this encounter OR Notes * Anesthesia Postprocedure Evaluation - Alvarado Ng MD - 01/31/2024 2:35 PM CDT Patient: Barbara Chakraborty Procedure Summary Date: 01/31/24 Room / Location: [facility] ENDOSCOPY ROOM [facility] END[facility]COPY Anesthesia Start: 1310 Anesthesia Stop: 1345 Procedure: ESOPHAGOGASTRODUODENOSCOPY BIOPSY Diagnosis: Coffee ground emesis (Coffee ground emesis [K92.0]) Providers: Malcolm Duvall MD Responsible Provider: Alvarado Ng MD Anesthesia Type: MAC ASA Status: 3 Anesthesia Type: MAC Last vitals BP 153/80 Pulse 73 Temp 36.2 ??C (97.2 ??F) (Temporal) Resp 19 SpO2 99% Anesthesia Post Evaluation Patient location during evaluation: PACU Patient participation: complete - patient participated Level of consciousness: fully awake Pain score: 0 Pain management: adequate Airway patency: adequate Evidence of recall: no Cardiovascular status: acceptable Respiratory status: acceptable Hydration status: acceptable Pt is: normothermic Nausea/Vomiting status: none No notable events documented. * Anesthesia Preprocedure Evaluation - Alvarado Ng MD - 01/31/2024 12:30 PM CDT Images from the original note were not included. Anesthesia Evaluation Barbara Chakraborty is a 73 y.o. female ESOPHAGOGASTRODUODENOSCOPY Pre-Op Diagnosis Codes: * Coffee ground emesis [K92.0] Patient Active Problem List Diagnosis Date Noted Upper GI bleeding 01/30/2024 Coffee ground emesis 01/29/2024 Screening for colon cancer 01/18/2024 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 01/05/2024 ESRD on dialysis ([facility]) 12/20/2023 Anemia of renal disease 12/20/2023 Syncope, unspecified syncope type 12/19/2023 Leukocytosis 12/19/2023 Renal disorder Pain in left arm 12/11/2023 Arthropathy of left shoulder 12/11/2023 CKD (chronic kidney disease) stage 4, GFR 15-29 ml/min ([facility]) ([facility]) 12/07/2023 Tinnitus of both ears 11/04/2023 Mixed conductive and sensorineural hearing loss of both ears 11/04/2023 Dysfunction of both eustachian tubes 11/04/2023 ESRD on hemodialysis ([facility]) ([facility]) 11/02/2023 AMS (altered mental status) 10/30/2023 Leg swelling 10/07/2023 Bandemia 12/20/2022 Shortness of breath 12/13/2022 Chronic diastolic congestive heart failure ([facility]) ([facility]) 12/06/2022 Bibasilar consolidations 12/06/2022 Movement disorder 12/06/2022 Abnormal urinalysis 11/07/2022 Anemia in chronic kidney disease, on chronic dialysis ([facility]) 10/10/2022 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[facility]) 08/14/2022 Pulmonary nodule 11/16/2021 Physical deconditioning 11/15/2021 Toe necrosis ([facility]) ([facility]) 10/07/2021 Volume overload 09/06/2021 Retention of urine, unspecified 08/22/2021 Unspecified osteoarthritis, unspecified site 08/22/2021 Unsteadiness on feet 08/22/2021 Weakness 08/22/2021 Late onset Alzheimer's dementia without behavioral disturbance ([facility]) 08/19/2021 Encounter for Medicare annual wellness exam 01/08/2021 Schizoaffective disorder, bipolar type ([facility]) ([facility]) 10/10/2020 Mixed hyperlipidemia 04/03/2020 Iron deficiency anemia 04/02/2020 Gastroesophageal reflux disease without esophagitis 04/02/2020 History of amputation of toe ([facility]) ([facility]) 01/19/2020 Uncontrolled hypertension 12/13/2019 Type 2 diabetes mellitus with diabetic neuropathy, with long-term current use of insulin ([facility]) 08/30/2019 Diabetic neuropathy ([facility]) Past Medical History: Diagnosis Date Anemia Arthritis CHF (congestive heart failure) ([facility]) (HCC) CKD (chronic kidney disease) stage V requiring chronic dialysis ([facility]) Dementia ([facility]) Depression Diabetic neuropathy ([facility]) GERD (gastroesophageal reflux disease) HL (hearing loss) Hyperlipidemia Hypertension Movement disorder Osteomyelitis (HCC) Rotator cuff tear, left Schizophrenia ([facility]) Type 2 diabetes mellitus ([facility]) Past Surgical History: Procedure Laterality Date SECTION Right right foot EYE SURGERY cataracts FLUORO GUIDED INJECTION SHOULDER LEFT Left 12/18/2023 TOE AMPUTATION Right 01/06/2020 4th toe amp/ foot debridement/ Dr. Anat Pelayo TUNNELED LINE PLACEMENT > 5 YEARS N/A 10/15/2023 OB History 3 Para Term AB Living SAB IAB Ectopic Multiple Live Births No Known Allergies Taking? Last Dose Start Date End Date Provider acetaminophen 500 mg capsule -- -- -- Joe Ballard MD aspirin 81 mg chewable tablet -- 12/28/23 -- Joe Ballard MD atorvastatin (LIPITOR) 40 mg tablet -- 01/06/24 01/05/25 Kiley Nye NP Take 1 tablet (40 mg total) by mouth nightly benztropine (COGENTIN) 1 mg tablet -- 01/08/24 -- Joe Ballard MD benztropine (COGENTIN) 2 mg tablet () -- 12/25/23 01/24/24 Chavez Isbell MD Take 1 tablet (2 mg total) by mouth daily blood-glucose sensor (FreeStyle Madhav 3 Sensor) device -- 06/30/23 -- Smith Adan MD Use for continuous glucose monitoring. Change sensor every 14 days calcium acetate,phosphat bind, (PHOSLO) 667 mg capsule -- 10/29/23 -- Cherelle Corcoran MD TAKE 1 CAPSULE(667 MG) BY MOUTH THREE TIMES DAILY WITH MEALS Notes: Patient requests 90 days supply carvediloL (COREG) 3.125 mg tablet -- 12/18/23 12/17/24 Markie Ryan MD Take 1 tablet (3.125 mg total) by mouth 2 (two) times a day with meals diclofenac sodium (VOLTAREN) 1 % gel -- 12/30/23 -- Miguel Ramos PA Apply 4 g topically 3 (three) times a day Patient not taking: Reported on 01/05/2024 Notes: Will not take due to concern for side effects docusate sodium (COLACE) 100 mg capsule -- 12/03/23 -- Demetri Villanueva MD Take 1 capsule (100 mg total) by mouth every 12 (twelve) hours Patient taking differently: Take 1 capsule (100 mg total) by mouth 2 (two) times a day as needed famotidine (PEPCID) 10 mg tablet -- -- -- Joe Ballard MD FeroSuL 325 mg (65 mg iron) tablet -- 01/03/24 -- Joe Ballard MD flash glucose scanning reader [facility] -- 06/30/23 -- Smith Gibbs MD Use Madhav 3 reader to scan Madhav 3 sensor flash glucose sensor (FreeStyle Madhav 2 Sensor) kit -- 03/24/23 -- Radha Franco NP Use to continually monitor glucose, change every 14 days fluticasone propionate (FLONASE) 50 mcg/actuation nasal spray -- -- -- Joe Ballard MD FreeStyle Madhav 3 [place] [facility] -- 09/25/23 -- Joe Ballard MD gabapentin (NEURONTIN) 100 mg capsule -- 01/11/24 -- Cherelle Corcoran MD Take 100 mg 3 times per week after hemodialysis. hydrALAZINE (APRESOLINE) 25 mg tablet -- 01/06/24 02/05/24 Kiley Nye NP Take 2 tablets (50 mg total) by mouth 3 (three) times a day insulin glargine 100 unit/mL (3 mL) pen for injection -- -- -- Joe Ballard MD insulin lispro (HumaLOG, ADMELOG) 100 unit/mL vial for injection -- -- -- Joe Ballard MD lidocaine (ASPERCREME) 4 % adhesive patch,medicated -- -- -- Joe Ballard MD NIFEdipine (NIFEdipine CC) 60 mg 24 hr tablet -- 01/11/24 -- Cherelle Corcoran MD TAKE 1 TABLET BY MOUTH DAILY Notes: Patient requests 90 days supply pen needle, diabetic (Easy Touch) 32 gauge x needle -- 12/02/23 -- Smith Adan MD USE DIRECTED FOUR TIMES DAILY polyethylene glycol (MIRALAX) 17 gram/dose bulk powder -- 10/22/23 -- Zhang Mendez MD Take 17 g by mouth daily as needed (Constipation) risperiDONE (RisperDAL) 2 mg tablet () -- 12/25/23 01/24/24 Chavez Isbell MD Take 1 tablet (2 mg total) by mouth nightly traMADoL (ULTRAM) 25 mg tablet -- 01/11/24 02/10/24 Cherelle Corcoran MD Take 1 tablet (25 mg total) by mouth every 8 (eight) hours as needed for pain Ongoing Comment Monserrat Bermudez, PT 04/18/2022 10:08 AM 04/17/22 family oversees medication management. med bottles and list available in home. Zev Bermudez,PT Current Facility-Administered Medications: acetaminophen (TYLENOL) tablet 650 mg, 650 mg, oral, TID, 650 mg at 01/31/24 0858 atorvastatin (LIPITOR) tablet 40 mg, 40 mg, oral, Nightly, 40 mg at 01/30/24 215 benztropine (COGENTIN) tablet 2 mg, 2 mg, oral, Daily, 2 mg at 01/31/24 0902 Carrier Fluids for Secondary Infusion - 0.9% Sodium Chloride, 30 mL, intravenous, PRN carvediloL (COREG) tablet 3.125 mg, 3.125 mg, oral, BID with meals (bkfst, dinner), 3.125 mg at 01/31/24 0903 [START ON 02/06/2024] darbepoetin isaiah (ARANESP) injection 100 mcg, 100 mcg, intravenous, Weekly - 2100 dextrose (GLUTOSE) 40 % gel 15 g, 15 g, oral, Q15 Min PRN OR dextrose (D10W) 10% bolus 250 mL, 250 mL, intravenous, Q15 Min PRN ferrous sulfate tablet 325 mg, 325 mg, oral, Daily with breakfast, 325 mg at 01/31/24 09 gabapentin (NEURONTIN) capsule 100 mg, 100 mg, oral, Once per day on Thursday, 100mg at 01/30/24 175 glucagon injection 1 mg, 1 mg, intramuscular, Q30 Min PRN hydrALAZINE (APRESOLINE) tablet 25 mg, 25 mg, oral, BID insulin glargine (LANTUS, SEMGLEE) 100 unit/mL injection 10 Units, 0.15 Units/kg, subcutaneous, Nightly, 10 Units at 01/30/242146 insulin lispro (HumaLOG, ADMELOG) 100 unit/mL injection 0-4 Units, 0-4 Units, subcutaneous, Nightly insulin lispro (HumaLOG, ADMELOG) 100 unit/mL injection 0-5 Units, 0-5 Units, subcutaneous, TID with meals, 1 Units at 01/30/24 175 methocarbamoL (ROBAXIN) tablet 750 mg, 750 mg, oral, TID, 750 mg at 01/31/24902 NIFEdipine (PROCARDIA XL/ADALAT CC) extended release tablet 60 mg, 60 mg, oral, Daily, 60 mg at 01/31/24903 ondansetron ODT (ZOFRAN-ODT) disintegrating tablet 4 mg, 4 mg, oral, Q6H PRN OR ondansetron (ZOFRAN) injection 4 mg, 4 mg, intravenous, Q6H PRN pantoprazole (PROTONIX) 40 mg in sodium chloride 0.9% 10 mL IV Syringe, 40 mg, intravenous, BID, 40mg at 01/31/24903 polyethylene glycol (MIRALAX) packet 17 g, 17 g, oral, Daily PRN ramelteon (ROZEREM) tablet 8 mg, 8 mg, oral, Nightly PRN risperiDONE (RisperDAL) tablet 2 mg, 2 mg, oral, Nightly, 2 mg at 01/30/242150 sodium chloride 0.9% flush 0.5-20 mL, 0.5-20 mL, intra-catheter, Q8H SOL, 10 mL at 01/31/24 05 sodium chloride 0.9% flush 0.5-20 mL, 0.5-20 mL, intra-catheter, PRN sodium chloride 0.9% flush 0.5-20 mL, 0.5-20 mL, intra-catheter, Q8H SOL sodium chloride 0.9% flush 0.5-20 mL, 0.5-20 mL, intra-catheter, PRN sodium chloride 0.9% infusion, 30 mL/hr, intravenous, Continuous traMADoL (ULTRAM) tablet 25 mg, 25 mg, oral, Q8H PRN, 25 mg at 01/31/24 1030 Social History Tobacco Use Smoking Status Never Passive exposure: Never Smokeless Tobacco Never Alcohol Use: Not At Risk (01/30/2024) AUDIT-C Frequency of Alcohol Consumption: Never Average Number of Drinks: Patient does not drink Frequency of Binge Drinking: Never Substance and Sexual Activity Drug Use Never Family History Problem Relation Age of Onset Diabetes Mother Heart disease Mother Kidney disease Mother Stomach cancer Father Alcohol abuse Father Diabetes Sister Diabetes Sister Diabetes Brother Vitals: 01/31/24 0352 01/31/24 0838 01/31/24 1122 BP: 121/58 130/61 147/58 Pulse: 66 75 72 Resp: 20 18 16 Temp: 36.7 ??C (98.1 ??F) 37.1 ??C (98.8 ??F) 36.9 ??C (98.4 ??F) SpO2: 96% 98% 97% PT: 01/29/2024: 12.6 sec INR: 01/29/2024: 0.9 APTT: 01/29/2024: 27 sec Hgb A1C: No results found for requested labs within last 30 days. CBC RBC: 01/31/2024: 2.76 M/cumm (L) RDW: No results found for requested labs within last 30 days. MCHC: 01/31/2024: 32.9 g/dL MCH: 01/31/2024: 30.8 pg MCV: 01/31/2024: 93.5 fL Hct: 01/31/2024: 25.8 % (L) Hgb: 01/31/2024: 8.5 g/dL (L) WBC: 01/31/2024: 7.3 K/cumm MPV: 01/31/2024: 10.1 fL Platelets: 01/31/2024: 241 K/cumm RDW CV: 01/31/2024: 16.8 % (H) RDW Sd: 01/31/2024: 56.7 fL (H) BMP Glucose: 01/31/2024: 96 mg/dL Calcium: 01/31/2024: 8.3 mg/dL (L) Sodium: 01/31/2024: 136 mmol/L Potassium: 01/31/2024: 4.0 mmol/L CO2: 01/31/2024: 26 mmol/L Chloride: 01/31/2024: 98 mmol/L BUN: 01/31/2024: 19 mg/dL Creatinine: 01/31/2024: 3.00 mg/dL (H) DOS Physical Exam Medical history, medications, and allergies reviewed. Attestation: This PAT evaluation 01/31/2024. Airway Exam: Mallampati: II Cervical ROM: FROM Cardiovascular Exam: Rate: regular Rhythm: regular Pulmonary Exam: LCTA, bilat EENT Exam: trachea midline Current state: Patient's current state is cooperative and interactive. Anesthesia Plan ASA 3 Planned anesthesia: MAC Informed Consent: Anesthesia plan and risks discussed with daughter, healthcare power of web manager and patient. Consent and Attending signature: I and/or [...] (Latest Contact Info) Description 07/13/2024 9:00 AM DISABILITIES CAREGIVER Hospital Encounter [facility] [address] [place] [address] Jaya Grier MD [address] [place] [id number] 07/13/2024 9:00 AM DISABILITIES CAREGIVER - 07/13/2024 9:30 AM DISABILITIES CAREGIVER Surgery [facility] [address] [place] [address] Jaya Grier MD [address] [place] [address] [address] [place] [address] ESOPHAGOGASTRODUODENOSCOPY Scheduled Procedures Name Priority Associated Diagnoses Date/Ti me ESOPHAGOGASTRODUODENOSCOPY Anemia, unspecified type Gastritis without bleeding, unspecified chronicity, unspecified gastritis type 07/13/2024 9:00 AM DISABILITIES CAREGIVER COLONOSCOPY Iron deficiency anemia due to chronic blood loss documented as of this encounter Visit Diagnoses Not on filedocumented in this encounter Administered Medications Inactive Administered Medications - up to 3 most recent administrations Medication Order MAR Action Action Date Dose Rate Site propofoL (DIPRIVAN) 10 mg/mL IV intravenous, As needed, Starting on 01/31/24 at 1319, Anesthesia Intra-op Given 01/31/2024 1:21 PM CDT 20 mg Given 01/31/2024 1:19 PM CDT 100 mg sodium chloride 0.9% infusion intravenous, Continuous PRN, Starting on 01/31/24 at 1327, Anesthesia Intra-op New Bag 01/31/2024 1:07 PM CDT documented in this encounter 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 06/26/2024 3:05 AM DISABILITIES CAREGIVER documented as of this encounter Care Teams Machinery Mover Relationship Specialty Start Date End Date Cherelle Corcoran MD PCP - General Family Medicine 08/30/19 Mark Queen MD Consulting Physician Infectious Diseases 01/10/20 Rudolph Welch MD [address] [facility] [address] [place] [address] Consulting Physician Infectious Diseases 12/05/22 Markie Ryan MD [address] [facility] [address] [place] [address] Consulting Physician Nephrology 12/05/22 Dulce Vega RN [address] [place] [address] [address] [place] [address] Professional Wrestler 10/07/23 05/03/24 [place] [address] [address] [place] [address] Consulting Physician Nephrology 10/22/23 documented as of this encounter
--- OUTSIDE RECORDS SUMMARY | 2024-07-04 04:03 | XMS_ITS | Encounter Summary ---
Author Organization [facility] Healthcare Address [address] [place] [address] Care Team Providers Care Senior Security Engineer Name Role Phone Cherelle Corcoran MD Primary Care Pro vider Mark Queen MD Unavailable [phone] Rudolph Welch MD Unavailable [phone] Markie Ryan MD Unavailable Dulce Vega RN Unavailable [phone] Jimbo Strauss MD Unavailable [phone] Encounter Details Date Type Department Care Team (Late st Contact Info) Description 01/18/2024 Orders Only [facility] Medical Group Gastroenterology at [address] [place] [address] Jaya Grier MD [address] [place] [address] [address] [place] [address] Screening for colon cancer (Primary Dx) Social History Tobacco Use Types Packs/Day Years Used Date Smoking Tobacco: Never Smokeless Tobacco: Never Alcohol Use Standard Drinks/Week Comments Not Currently 0 (1 standard drink = 0.6 oz pur e alcohol) OASIS D0700: Social Isolation Answer Da te Recorded Frequency of experiencing loneliness or isolatio n Never 12/28/2023 OASIS A1250: Transportation Answer Date Recorded Lack of Transportation (Medical) No 12/28/2023 Lack of Transportation (Non-Medical) No 12/28/2023 Patient Unable or Declines to Respond No 12/28/2023 OASIS B1300: Health Literacy Answer Fuentes e Recorded Frequency of needing help to read materials from doctor or pharmacy Never 12/28/2023 [facility] Utilities Answer Date Recorded In the past 12 months has e [employer] ([employer]), [employer], oil, or water [employer] threatened to shut off services in your [...] often do you attend chur ch or adventist services? More than 4 times per year 12/21/2023 Do you belong to any clubs o r organizations such as mormonism groups, unions, fraternal or athletic groups, or [...] in a nursing home (including now)? No 12/21/2023 Personal Safety Answer Date Recorded Have you ever been in or are you currently in a harmful physical or emotional relationship or is someone making you feel afraid or unsafe? 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 AM STUDENT FINANCIAL AID MANAGER Gender Identity Female 02/08/2020 6:39 PM CDT Sexual Orientation Not on file documented as of this encounter Plan of Treatment Upcoming Encounters Date Type Department Care Team (Latest Contact Info) Description 07/13/2024 9:00 AM STUDENT FINANCIAL AID MANAGER Hospital Encounter [facility] GI Lab [address] [place] [address] Jaya Grier MD [address] [address] 07/13/2024 9:00 AM STUDENT FINANCIAL AID MANAGER - 07/13/2024 9:30 AM STUDENT FINANCIAL AID MANAGER Surgery [facility] Lab [address] [place] [address] Jaya Grier MD [address] [facility] [address] [place] [address] ESOPHAGOGASTRODUODENOSCOPY Scheduled Procedures Name Priority Associated Diagnoses Date/Ti me ESOPHAGOGASTRODUODENOSCOPY Anemia, unspecified type Gastritis without bleeding, unspecified chronicity, unspecified gastritis type 07/13/2024 9:00 AM STUDENT FINANCIAL AID MANAGER COLONOSCOPY Iron deficiency anemia due to chronic blood loss documented as of this encounter Visit Diagnoses Diagnosis Screening for colon cancer- Primary Special screening for malignant neoplasms, colon Anemia, unspecified type Gastritis without bleeding, unspecified chronicity, unspecified gastritis type documented in this encounter Orders Case Request Count Last Ordered Date First Orde red Date CASE REQUEST OPERATING ROOM 1 01/18/2024 documented in this encounter 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 06/26/2024 3:05 AM STUDENT FINANCIAL AID MANAGER documented as of this encounter Care Teams Senior Security Engineer Relationship Specialty Start Date End Date Cherelle Corcoran MD PCP - General Family Medicine 08/30/19 Mark Queen MD Consulting Physician Infectious Diseases 01/10/20 Rudolph Welch MD [address] [facility] [address] [place] [address] Consulting Physician Infectious Diseases 12/05/22 Markie Ryan MD [address] [facility] [address] [place] [address] Consulting Physician Nephrology 12/05/22 Dulce Vega RN [address] [place] [address] [address] [place], [place] [id number] Licensed Practical Vocational Nurse 10/07/23 05/03/24 [place] [address] [address] [facility] [address] [place] [address] Consulting Physician Nephrology 10/22/23 documented as of this encounter
--- OUTSIDE RECORDS SUMMARY | 2024-07-04 04:03 | XMS_ITS | Encounter Summary ---
Author Organization [facility] Healthcare Address [address] [place] [address] Care Team Providers Care Collection Administrator Name Role Phone Cherelle Corcoran MD Primary Care Pro vider Mark Queen MD Unavailable [phone] Rudolph Welch MD Unavailable Markie Ryan MD Unavailable [phone] Dulce Vega RN Unavailable [phone] Jimbo Strauss MD Unavailable [phone] Reason for Visit * Reason Comments PT Initial Eval * Physical Therapy (Routine) - Closed Specialty Diagnoses / Procedures Referred By Contflex t Referred To Contact Physical Therapy Diagnoses Acute pain of left shoulder Perico Raphael PA [address] [facility] [address] [place] [address] Phone: tel: fax: [address] [address] Referral ID Status Reason Start Date Expiration Date V isits Requested Visits Authorized [id number] Closed Evaluate and Treat 12/11/2023 06/21/2024 16 30 Encounter Details Date Type Department Care Team (Late st Contact Info) Description 01/26/2024 11:00 AM CDT Therapy [facility] Medical Office Bldg 1 OP Physical Therapy [facility] [place] [address] Kayden Iyer PT Left shoulder pain, unspecified chronicity Social [...] doctor or pharmacy Often 01/20/[address] [facility] Utilities Answer Date Recorded In the past 12 months has e [employer], [employer], oil, or water [employer] threatened to shut off services in your [...] any clubs o r organizations such as caodaism groups, unions, fraternal or athletic groups, or [...] time in the past 12 m [facility], were you homeless or living in a retirement (including now)? No 12/21/2023 Personal Safety Answer Date Recorded Have you ever been in or are you currently in a harmful physical or emotional relationship or is someone making you feel afraid or unsafe? 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 AM PROPERTY UNDERWRITER Gender Identity Female 02/08/2020 6:39 PM CDT Sexual Orientation Not on file documented as of this encounter Progress Notes * Kayden Iyer, PT - 01/26/2024 11:00 AM CDT Images from the original note were not included. Physical Therapy Evaluation /Initial Certification 01/26/2024 Barbara Chakraborty 1950 73 y.o. female MARYPERICO EVANS [place]EL[place] ICD-10-CM 1. Left shoulder pain, unspecified chronicity M25.512 Ambulatory referral order to Physical Therapy- Past Medical History: Diagnosis Date Anemia Arthritis CHF (congestive heart failure) ([facility]/HCC) (HCC) CKD (chronic kidney disease) stage V requiring chronic dialysis (HCC) Dementia (HCC) Depression Diabetic neuropathy (HCC) GERD (gastroesophageal reflux disease) HL (hearing loss) Hyperlipidemia Hypertension Movement disorder Osteomyelitis (HCC) Rotator cuff tear, left Schizophrenia ([facility]) Type 2 diabetes mellitus ([facility]) Past Surgical History: Procedure Laterality Date SECTION Right right foot EYE SURGERY cataracts FLUORO GUIDED INJECTION SHOULDER LEFT Left 12/18/2023 TOE AMPUTATION Right 01/06/2020 4th toe amp/ foot debridement/ Dr. Anat Pelayo TUNNELED LINE PLACEMENT > 5 YEARS N/A 10/15/2023 Visits: 1 [employer] Utilized: NO Patient is identified by name and date of on this visit. Subjective: History of Present Condition Surgical Patient: NO Date of Onset: Chronic L shoulder pain Description of Onset: Gradual worsening of L shoulder pain this past 1-2 years. Pain has becomes severe in the last 3-4 weeks. Prior Diagnostic Tests and Results: X-Rays Other Treatment for this Diagnosis: PT - Parkinson's, Shoulder pain. Meds: Tylenol Previous Physical Therapy for this Diagnosis: YES. Last episode of PT: last week. Response to priortherapy: Not sure. Changes/reasons for returning to PT: DC from HH to OP Symptoms Pt reports L shoulder pain - intermittent. Less pain in the mornings. Pain with reaching all directions. Current pain ratin/10 At best pain ratin/10 At worst pain ratin/10 Exacerbating Factors: Lifting, Overhead reaching Relieving Factors: Rest Function Current Functional Deficits: R handed. Severe L shoulder pain with ADLs Functional Status (just prior to the onset of the treating condition requiring therapy): Chronic L shoulder pain, able to walk with cane Occupation: Retired. Hobbies: Played Tennis Equipment Used: Cane, Walker Lives in: 1 story - basement Support at Home: Daughter Home environment/obstacles: None Cognitive Status: requires occasional re-direction or verbal/physical cues which affects function by following simple directions Objective: Shoulder Objective AROM (in deg) R L Shoulder Flexion 130 deg. 130 deg. Extension 50 deg. 40 deg. Abduction 110 deg. 90 deg. PROM (in deg) L Shoulder Flexion 140 deg. Abduction 135 deg. External rotation 55 deg. Internal rotation 35 deg. Strength R L Shoulder Flexion 4-/5 4-/5 Extension 4/5 4/5 Abduction 4- /5 4-/5 External rotation 4/5 4-/5 Internal rotation 4/5 4-/5 Posture: IR shoulders, Resting tremors Palpation: Moderate TTP at L superior GH region Joint mobility: Mild crepitus with overhead flexion PROM SPADI: 100 / 130 Treatment Performed on This Visit: Manual Therapy: L shoulder PROM Therapeutic Procedure/Exercise: Shoulder ROM, sterngthening Modalities: None HEP given: Handout Patient education: PT and family educated on HEP, issues pulleys Assessment: Rehab potential or prognosis: good The patient requires additional skilled physical therapy services for L shoulder mobility , and forreturn to prior level of function. The patient presents with signs and symptoms of L shoulder OA. Impairments include limited L shoulder AROM and PROM, weakness. Tx emphasis on reducing symptoms andimproving on identified impairments to improve function related to reaching, sleeping, lifting. Patient participated in establishing goals. PT Diagnosis/Impairment List: L shoulder degerneration Precautions: [...] DATES: From 01/26/24 to 03/22/2024 (8 weeks) Plan: Patient will benefit from skilled physical therapy services 1-2 times per week for 6-8 weeks. Treatment may include: therapeutic exercise, manual therapy, neuromuscular re- education, modalitiesas needed, functional activities, patient education, and home exercise program. Patient and Family educated and acknowledged understanding of therapy diagnosis, prognosis, pain relief instructions, precautions, risks, benefits and agree with the treatment plan and goals. Patientwill be discharged from therapy upon completion of goals, physician order, or when therapist determines patient is appropriate for discharge from skilled therapy services. Kayden Iyer, PT [facility] ATTENTION PHYSICIAN If you are unable to electronically sign this document, please print this document and sign below to certify this plan of care/treatment plan. By signing this document, I certify that I have reviewedthis plan of care and support the treatment. Please fax back to . Thank you. Provider Signature: Date: * Kayden Iyer, PT - 01/26/2024 11:00 AM CDT ICD-10-CM 1. Left shoulder pain, unspecified chronicity M25.512 Ambulatory referral order to Physical Therapy- PERICO RAPHAEL PT Diagnosis/Impairment List: L shoulder degerneration Precautions: [...] (8 weeks) Date Date Date Date 01/26/24 Visit Number 1 ADDITIONAL HEP SHEETS ISSUED NuStep Arms Pulleys Flexion 2' Pulleys ABD 2' Supine wand flexion 15 Supine wand ER / IR 15 SCap squeezes 15 SL ER - LEFT 10 L shoulder PROM 10' Progress Note/Re-Cert documented in this encounter Plan of Treatment Upcoming Encounters Date Type Department Care Team (Latest Contact Info) Description 07/13/2024 9:00 AM PROPERTY UNDERWRITER Hospital Encounter [facility] [address] [place] [address] Jaya Grier MD [address] [place] [address] [address] [place] [address] 07/13/2024 9:00 AM PROPERTY UNDERWRITER - 07/13/2024 9:30 AM PROPERTY UNDERWRITER Surgery [facility] [address] [place] [id number] Jaya Grier MD [address] [place] [address] DR [address] [place] [id number] ESOPHAGOGASTRODUODENOSCOPY Scheduled Procedures Name Priority Associated Diagnoses Date/Ti il ESOPHAGOGASTRODUODENOSCOPY Anemia, unspecified type Gastritis without bleeding, unspecified chronicity, unspecified gastritis type 07/13/2024 9:00 AM PROPERTY UNDERWRITER COLONOSCOPY Iron deficiency anemia due to chronic [...] Time 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 12/29/2023 06/26/2024 3:05 AM PROPERTY UNDERWRITER documented as of this encounter Care Teams Collection Administrator Relationship Specialty Start Date End Date Cherelle Corcoran MD PCP - General Family Medicine 08/30/19 Mark Queen MD Consulting Physician Infectious Diseases 01/10/20 Rudolph Welch MD [address] [facility] [address] [place] [address] Consulting Physician Infectious Diseases 12/05/22 Markie Ryan MD [address] [facility] [address] [place] [address] Consulting Physician Nephrology 12/05/22 Dulce Vega RN [address] [place] [address] [address] [place] [address] Filteration Operator 10/07/23 05/03/24 [place] [address] [facility] [address] [place] [address] Consulting Physician Nephrology 10/22/23 documented as of this encounter
--- OUTSIDE RECORDS SUMMARY | 2024-07-04 04:03 | XMS_ITS | Encounter Summary ---
Author Organization [facility] Healthcare Address [address] [place] [address] Care Team Providers Care Atm Technician Name Role Phone Cherelle Corcoran MD Primary Care Pro vider Mark Queen MD Unavailable [phone] Rudolph Welch MD Unavailable [phone] Markie Ryan MD Unavailable Dulce Vega RN Unavailable Jimbo Strauss MD Unavailable [phone] Jaya Grier MD Unavailable Reason for Visit * Reason Onset Date Comments Authorization/Certification 01/13/2024 Encounter Details Date Type Department Care Team (Late st Contact Info) Description 01/13/2024 Telephone [facility] [place] [address] [facility] [address] [place] [address] Cherelle Corcoran MD [facility] [address] [place] [address] Authorization/Certifica tion Social History Tobacco [...] often do you attend chur ch or anabaptist services? More than 4 times [...] on file Legal Sex Female 9:03 AM CLOTH FOLDER HAND Gender Identity Female 02/08/2020 6:39 PM CDT Sexual Orientation Not on file documented as of this encounter Miscellaneous Notes * Telephone Encounter - Sandy Mota MA - 01/15/2024 2:39 PM CDT Tried calling daughter. Unable to reach and unable to leave . PA has been denied. She can check goodrx for a coupon and pay aleman kim. That will be the next option * Telephone Encounter - Nadege Wilhelm - 01/13/2024 12:22 PM CDT Authorization/Certification Type of Auth/Cert Needed: Prior Authorization for Medication Name of Medication and Dosage: traMADoL (ULTRAM) 25 mg tablet Is the patient out of the medication? Yes Pharmacy that medication was sent to: [id number] - ROBERT CANDELARIO MD - [address] Is insurance in chart accurate? Medicare/Medicade Additional Comments: Patients daughter on HIPAA states that the insurance is requesting a pre-auth for the script. Does message need to be routed? Yes-Action Needed documented in this encounter Plan of Treatment Upcoming Encounters Date Type Department Care Team (Latest Contact Info) Description 07/13/2024 9:00 AM CLOTH FOLDER HAND Hospital Encounter [facility] GI Lab [address] [place] [address] Jaya Grier MD [address] [facility] [address] [place] [address] 07/13/2024 9:00 AM CLOTH FOLDER HAND - 07/13/2024 9:30 AM CLOTH FOLDER HAND Surgery [facility] [address] [place] [address] Jaya Grier MD [address] [facility] [address] GA[address] [place] [address] ESOPHAGOGASTRODUODENOSCOPY Scheduled Procedures Name Priority Associated Diagnoses Date/Ti me ESOPHAGOGASTRODUODENOSCOPY Anemia, unspecified type Gastritis without bleeding, unspecified chronicity, unspecified gastritis type 07/13/2024 9:00 AM CLOTH FOLDER HAND COLONOSCOPY Iron deficiency anemia due to chronic blood loss documented as of this encounter Visit Diagnoses Not on filedocumented in this encounter 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 06/26/2024 3:05 AM CLOTH FOLDER HAND documented as of this encounter Care Teams Atm Technician Relationship Specialty Start Date End Date Cherelle Corcoran MD PCP - General Family Medicine 08/30/19 Mark Queen MD Consulting Physician Infectious Diseases 01/10/20 Rudolph Welch MD [address] [facility] [address] [place] [address] Consulting Physician Infectious Diseases 12/05/22 Markie Ryan MD [address] [facility] [address] [place] [address] Consulting Physician Nephrology 12/05/22 Dulce Vega, ALIREZA [address] [place] [address] [address] [place] [address] Welder Plastic 10/07/23 05/03/24 [place] [address] [address] [place] [address] Consulting Physician Nephrology 10/22/23 Jaya Grier MD [address] [facility] [address] [place] [address] Consulting Physician Gastroenterology 02/01/24 documented as of this encounter
--- OUTSIDE RECORDS SUMMARY | 2024-07-04 04:03 | XMS_ITS | Encounter Summary ---
Author Organization [facility] Healthcare Address [address] [place] [address] Care Team Providers Care Supervisor Fur Dressing Name Role Phone Cherelle Corcoran MD Primary Care Pro vider Mark Queen MD Unavailable [phone] Rudolph Welch MD Unavailable [phone] Markie Ryan MD Unavailable [phone] Dulce Vega RN Unavailable [phone] Jimbo Strauss MD Unavailable [phone] Reason for Referral * MRI/CAT/PET Scan (Routine) - Closed Specialty Diagnoses / Procedures Referred By Contflex t Referred To Contact Radiology Diagnoses Arthropathy of left shoulder Procedures MRI Shoulder Left WO Contrast Perico Raphael PA [address] [address] Phone: tel: fax: [address] [address] Referral ID Status Reason Start Date Expiration Date Visits Re quested Visits Authorized [id number] Closed 01/05/2024 02/03/2025 1 1 Reason for Visit * Auth/Cert (Routine) Specialty Diagnoses / Procedures Referred By Contac t Referred To Contact Diagnoses Acute blood loss anemia Upper GI bleeding ESRD (end stage renal disease) on dialysis (HCC) Hypertension, unspecified type Complete tear of left rotator cuff, unspecified whether traumatic Procedures na Referral ID Status Reason Start Date Expiration Date Visits Re quested Visits Authorized [id number] 1 1 Encounter Details Date Type Department Care Team (Latest Contact Info) Description 01/29/2024 4:07 PM CDT - 01/29/2024 11:59 PM CDT Hospital Encounter [facility] MRI [address] [place] [address] Arthropathy of left shoulder Discharge Disposition: Discharge to home or self [...] In the past 12 months has e [employer], gas, oil, or water [employer] threatened to shut off services in your [...] often do you attend chur ch or confucianist services? More than 4 times per year 12/21/2023 Do you belong to any clubs o r organizations such as samaritan groups, unions, fraternal or athletic groups, or [...] in the past 12 m [facility], were you homeless or living in a [place] health care facility (including now)? No 12/21/2023 Personal Safety Answer Date Recorded Have you ever been in or are you currently in a harmful physical or emotional relationship or is someone making you feel afraid or unsafe? Denies 01/30/2024 Comments No Sex and Gender Information Value Date Recorded Sex Assigned at Not on file Legal Sex Female 9:03 AM LATIN DANCE INSTRUCTOR Gender Identity Female 02/08/2020 6:39 PM [...] as needed for rhinitis FreeStyle Madhav 3 [place] misc Use Madhav 3 reader to scan [...] mouth daily 30 tablet 12/25/2023 02/01/20 24 benztropine (COGENTIN) 2 mg tablet [...] mouth nightly 30 tablet 12/25/2023 02/01/20 24 risperiDONE (RisperDAL) 2 mg tablet Take 1 tablet (2 mg total) by mouth nightly 30 tablet 02/01/2024 05/27/20 24 sucralfate (CARAFATE) suspension 1 gram/10 mL Take 10 mL (1 g total) by mouth 4 (four) times a day (with meals and nightly) 1200 mL 1 02/01/2024 02/09/20 24 traMADoL (ULTRAM) 25 mg tabletIndications:A rthropathy [...] (Latest Contact Info) Description 07/13/2024 9:00 AM LATIN DANCE INSTRUCTOR Hospital Encounter [facility] [address] [place] [address] Jaya Grier MD [address] [facility] [address] [place] [address] 07/13/2024 9:00 AM LATIN DANCE INSTRUCTOR - 07/13/2024 9:30 AM LATIN DANCE INSTRUCTOR Surgery [facility] [address] [place] [address] Jaya Grier MD [address] [facility] [address] [place] [address] ESOPHAGOGASTRODUODENOSCOPY Scheduled Procedures Name Priority Associated Diagnoses Date/Ti me ESOPHAGOGASTRODUODENOSCOPY Anemia, unspecified type Gastritis without bleeding, unspecified chronicity, unspecified gastritis type 07/13/2024 9:00 AM LATIN DANCE INSTRUCTOR COLONOSCOPY Iron deficiency anemia due to chronic blood loss documented as of this encounter Procedures Procedure Name Priority Date/Time Associated Diagnosis Comments MRI SHOULDER LEFT WO CONTRAST Schedule Routine, Read Routine (OP Routine) 01/29/2024 4:50 PM CDT Arthropathy of left shoulder documented in this encounter Results * MRI Shoulder Left WO Contrast (01/29/2024 4:50 PM CDT) Anatomical Region Laterality Modality Upper Extremities Left Magnetic Reson ance 01/29/2024 7:49 PM CDT Narrative 01/29/2024 7:57 PM CDT EXAM DESCRIPTION: MRI SHOULDER LEFT WO CONTRAST REASON FOR STUDY: Shoulder pain, rotator cuff disorder suspected, nondiagnostic xray, LEFT SHOULDER PAIN ?? Shoulder pain, rotator cuff disorder suspected, xray done; LEFT SHOULDER PAIN ? TECHNIQUE: Multiplanar, multisequence MRI of the ??left ??shoulder was performed without intravenous contrast administration. COMPARISON: Radiographs dated 12/29/2023 FINDINGS: The examination is degraded due to patient's motion artifact limiting evaluation for subtle findings. There is a type 2 acromion with a small subacromial spur. ??The coracoacromial and coracoclavicular ligaments are intact. ??Moderate acromioclavicular joint osteoarthritis. ??There is small volume of fluid with debris in the subacromial subdeltoid bursa as well as subcoracoid bursa due to full-thickness rotator cuff tear as detailed below. There is severe chronic fatty atrophy of the supraspinatus and superior half fibers of the infraspinatus muscle. ??There is mild chronic fatty atrophy subscapularis muscle. ??The teres minor muscle demonstrates normal bulk and signal intensity. ??There is mild fatty infiltration of the deltoid muscle with preserved bark. There is mild supraspinatus and infraspinatus hypertrophic tendinopathy with superimposed full-thickness tear of the entirety of the supraspinatus tendon as well as anterior and mid fibers of the infraspinatus tendon with retraction of the torn tendon stumps to the level of the superomedial humeral head and myotendinous junction just medial to the level of the glenoid. ??There is moderate subscapularis hypertrophic tendinopathy with undersurface tendon fraying as well as partial-thickness undersurface tear of its superior fibers involving greater than 50% of tendon thickness. ??The teres minor tendon is intact. There is nonvisualization of the extra-articular long head biceps tendon in the proximal bicipital groove as well as intra-articular long head biceps tendon reflective of a chronic tear. There is circumferential fraying of the glenoid labrum. ??There is overall moderate glenohumeral joint chondrosis reflective of rotator cuff arthropathy with superior positioning of the humeral head with respect to the acromion with remodeling of the undersurface of the acromion and superior humeral head. There is a small glenohumeral joint effusion with mild synovitis extending to the subacromial subdeltoid and subcoracoid bursa through full-thickness rotator cuff tear. ??No glenohumeral joint bodies. There is no fracture, stress fracture, avascular necrosis or aggressive bone marrow replacing lesions. There is no soft tissue mass or lymphadenopathy. IMPRESSION: 1. ??Mild left supraspinatus and infraspinatus hypertrophic tendinopathy with superimposed full-thickness tear of the entirety of the supraspinatus tendon as well as anterior and mid fibers of the infraspinatus tendon with retraction of the torn tendon stumps to the level of the superomedial humeral head and myotendinous junction just medial to the level of the glenoid. ??Severe chronic fatty atrophy of the supraspinatus and superior half fibers of the infraspinatus muscle 2. Moderate left subscapularis hypertrophic tendinopathy with undersurface tendon fraying as well as partial-thickness undersurface tear of its superior fibers involving greater than 50% of tendon thickness. ??Mild chronic fatty atrophy subscapularis muscle. 3. Nonvisualization of the extra-articular long head biceps tendon in the proximal bicipital groove as well as intra-articular long head biceps tendon reflective of a chronic tear. 4. ??Moderate left glenohumeral joint chondrosis reflective of rotator cuff arthropathy. ??Small left glenohumeral joint effusion with slight synovitis extending to the subacromial subdeltoid and subdeltoid bursa due to full-thickness rotator cuff tear. 5. ??Moderate left acromioclavicular joint osteoarthritis. THIS IS AN ELECTRONICALLY VERIFIED FINAL REPORT 01/29/2024 7:57 PM - Electronically signed by ??Loc Jon M.D. AT D: ??01/29/2024 7:57 PM T: Report ID: [id number] Reading Location: ??[id number] Procedure Note Loc Jon MD - 01/29/2024 EXAM DESCRIPTION: MRI SHOULDER LEFT WO CONTRAST REASON FOR STUDY: Shoulder pain, rotator cuff disorder suspected, nondiagnostic xray, LEFT SHOULDER PAIN Shoulder pain, rotator cuff disorder suspected, xray done; LEFT SHOULDERPAIN TECHNIQUE: Multiplanar, multisequence MRI of the left shoulder wasperformed without intravenous contrast administration. COMPARISON: Radiographs dated 12/29/2023 FINDINGS: The examination is degraded due to patient's motion artifact limiting evaluation for subtle findings. There is a type 2 acromion with a small subacromial spur. Thecoracoacromial and coracoclavicular ligaments are intact. Moderate acromioclavicularjoint osteoarthritis. There is small volume of fluid with debris in thesubacromial subdeltoid bursa as well as subcoracoid bursa due to full-thicknessrotator cuff tear as detailed below. There is severe chronic fatty atrophy of the supraspinatus and superiorhalf fibers of the infraspinatus muscle. There is mild chronic fatty atrophy subscapularis muscle. The teres minor muscle demonstrates normal bulk and signal intensity. There is mild fatty infiltration of the deltoid musclewith preserved bark. There is mild supraspinatus and infraspinatus hypertrophic tendinopathywith superimposed full-thickness tear of the entirety of the supraspinatustendon as well as anterior and mid fibers of the infraspinatus tendon withretraction of the torn tendon stumps to the level of the superomedial humeral headand myotendinous junction just medial to the level of the glenoid. There is moderate subscapularis hypertrophic tendinopathy with undersurface tendon fraying as well as partial-thickness undersurface tear of its superiorfibers involving greater than 50% of tendon thickness. The teres minor tendon is intact. There is nonvisualization of the extra-articular long head biceps tendonin the proximal bicipital groove as well as intra-articular long head biceps tendon reflective of a chronic tear. There is circumferential fraying of the glenoid labrum. There is overall moderate glenohumeral joint chondrosis reflective of rotator cuffarthropathy with superior positioning of the humeral head with respect to the acromion with remodeling of the undersurface of the acromion and superior humeralhead. There is a small glenohumeral joint effusion with mild synovitis extendingto the subacromial subdeltoid and subcoracoid bursa through full-thickness rotator cuff tear. No glenohumeral joint bodies. There is no fracture, stress fracture, avascular necrosis or aggressivebone marrow replacing lesions. There is no soft tissue mass or lymphadenopathy. IMPRESSION: 1. Mild left supraspinatus and infraspinatus hypertrophic tendinopathy with superimposed full-thickness tear of the entirety of the supraspinatus tendon as well as anterior and mid fibers of theinfraspinatus tendon with retraction of the torn tendon stumps to the level of the superomedial humeral head and myotendinous junction just medial to thelevel of the glenoid. Severe chronic fatty atrophy of the supraspinatus and superior half fibers of the infraspinatus muscle 2. Moderate left subscapularis hypertrophic tendinopathy with undersurface tendon fraying as well as partial-thickness undersurface tear of itssuperior fibers involving greater than 50% of tendon thickness. Mild chronic fatty atrophy subscapularis muscle. 3. Nonvisualization of the extra-articular long head biceps tendon in the proximal bicipital groove as well as intra-articular long head bicepstendon reflective of a chronic tear. 4. Moderate left glenohumeral joint chondrosis reflective of rotator cuff arthropathy. Small left glenohumeral joint effusion with slight synovitis extending to the subacromial subdeltoid and subdeltoid bursa due to full-thickness rotator cuff tear. 5. Moderate left acromioclavicular joint osteoarthritis. THIS IS AN ELECTRONICALLY VERIFIED FINAL REPORT 01/29/2024 7:57 PM - Electronically signed by Loc Jon M.D. 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 06/26/2024 3:05 AM LATIN DANCE INSTRUCTOR documented as of this encounter Care Teams Supervisor Fur Dressing Relationship Specialty Start Date End Date Cherelle Corcoran MD PCP - General Family Medicine 08/30/19 Mark Queen MD Consulting Physician Infectious Diseases 01/10/20 Rudolph Welch MD [address] [facility] [address] [place] [address] Consulting Physician Infectious Diseases 12/05/22 Markie Ryan MD [address] [facility] [address] [place], [place] [id number] Consulting Physician Nephrology 12/05/22 Dulce Vega, ALIREZA [address] [place] [address] [address] [place] [address] Wedding Photographer 10/07/23 05/03/24 [place] [address] [address] [place] [address] Consulting Physician Nephrology 10/22/23 documented as of this encounter
--- OUTSIDE RECORDS SUMMARY | 2024-07-04 04:03 | XMS_ITS | Encounter Summary ---
Author Organization [facility] Healthcare Address [address] [place] [address] Care Team Providers Care Robotic Welding Operator Name Role Phone Cherelle Corcoran MD Primary Care Pro vider Mark Queen MD Unavailable [phone] Rudolph Welch MD Unavailable [phone] Markie Ryan MD Unavailable Dulce Vega RN Unavailable Jimbo Strauss MD Unavailable [phone] Reason for Visit * Reason Onset Date Comments mri 01/25/2024 Encounter Details Date Type Department Care Team (Late st Contact Info) Description 01/25/2024 Telephone [facility] Medical Group Orthopedics and Sports Medicine [address] [place] [address] [address] [place] [address] Perico Raphael PA [address] [place] [phone] mri Social History Tobacco Use Types Packs/Day Years [...] doctor or pharmacy Often 01/20/2024 [facility] Utilities Answer Date Recorded In the past 12 months has e [employer], [employer], oil, or water [employer] threatened to shut off services in [...] often do you attend chur ch or yarsanism services? More than 4 times [...] any time in the past 12 m [facility], were you homeless or living in a custodial (including now)? No 12/21/2023 Personal Safety Answer Date Recorded Have you ever been in or are you currently in a harmful physical or emotional relationship or is someone making you feel afraid or unsafe? 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 AM JIG BORER Gender Identity Female 02/08/2020 6:39 PM CDT Sexual Orientation Not on file documented as of this encounter Miscellaneous Notes * Telephone Encounter - David Rivera MA - 01/25/2024 3:19 PM CDT LVM THAT PATIENT DOESN'T NEED NEW ORDER UNLESS SHE IS GOING TO DIFFERENT LOCATION. * Telephone Encounter - Barb Pearson - 01/25/2024 3:12 PM CDT [facility] Needs a new order for an MRI, they missed their appointment. documented in this encounter Plan of Treatment Upcoming Encounters Date Type Department Care Team (Latest Contact Info) Description 07/13/2024 9:00 AM JIG BORER Hospital Encounter [facility] Lab [address] [place] [address] Jaya Grier MD [address] [place] [address] [address] [place] [address] 07/13/2024 9:00 AM JIG BORER - 07/13/2024 9:30 AM JIG BORER Surgery [facility] [address] [place] [address] Jaay Grier MD [address] [place] [address] [address] [place] [address] ESOPHAGOGASTRODUODENOSCOPY Scheduled Procedures Name Priority Associated Diagnoses Date/Ti me ESOPHAGOGASTRODUODENOSCOPY Anemia, unspecified type Gastritis without bleeding, unspecified chronicity, unspecified gastritis type 07/13/2024 9:00 AM JIG BORER COLONOSCOPY Iron deficiency anemia due to chronic blood loss documented as of this encounter Visit Diagnoses Not on filedocumented in this encounter 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 06/26/2024 3:05 AM JIG BORER documented as of this encounter Care Teams Robotic Welding Operator Relationship Specialty Start Date End Date Cherelle Corcoran MD PCP - General Family Medicine 08/30/19 Mark Queen MD Consulting Physician Infectious Diseases 01/10/20 Rudolph Welch MD [address] [facility] [address] [place] [address] Consulting Physician Infectious Diseases 12/05/22 Markie Rayn MD [address] [facility] [address] [place] [address] Consulting Physician Nephrology 12/05/22 Dulce Vega, ALIREZA [address] [place] [address] [address] [place] [address] Mold Injector 10/07/23 05/03/24 [place] [address] [facility] [address] [place] [address] Consulting Physician Nephrology 10/22/23 documented as of this encounter
--- OUTSIDE RECORDS SUMMARY | 2024-07-04 04:03 | XMS_ITS | Encounter Summary ---
Author Organization [facility] Healthcare Address [address] [place] [address] Care Team Providers Care Oracle R12 Developer Name Role Phone Cherelle Corcoran MD Primary Care Pro vider Mark Queen MD Unavailable [phone] Rudolph Welch MD Unavailable [phone] Markie Ryan MD Unavailable Dulce Vega RN Unavailable Jimbo Strauss MD Unavailable [phone] Jaya Grier MD Unavailable Reason for Visit * Reason Onset Date Comments Symptom Based Call 01/18/2024 Encounter Details Date Type Department Care Team ([facility] st Contact Info) Description 01/18/2024 Telephone [facility] Medical Group Primary Care at [place] [id number] [facility] [address] [place] [address] Cherelle Corcoran MD [facility] [address] [place] [address] Symptom Based Call Social History Tobacco Use Types Packs/Day Years [...] doctor or pharmacy Often 01/20/2024 [facility] Utilities Answer Date Recorded In [...] any clubs o r organizations such as [employer] groups, unions, fraternal or athletic groups, or [...] in the past [address] [facility], were you homeless or living in a [...] on file Legal Sex Female 9:03 AM TELEVISION ANTENNA INSTALLER Gender Identity Female 02/08/2020 6:39 PM CDT Sexual Orientation Not on file documented as of this encounter Miscellaneous Notes * Telephone Encounter - Svetlana, HONEY Delgado - 01/18/2024 1:56 PM CDT Pt daughter aware. Verbalized understanding. Nothing further at this time * Telephone Encounter - Cherelle Corcoran MD - 01/18/2024 12:39 PM CDT I can't treat vomiting without seeing her in person. And if she is having persistent vomiting despite what I presume to be nausea medication in IV during dialysis, I would recommend she be seen in ED. * Telephone Encounter - Brook Sinclair - 01/18/2024 10:12 AM CDT Symptom Based Call Chief Complaint(s): Nausea and vomiting Duration: 5 days What type of symptom(s) is the patient experiencing? Non-Emergent. Is this a new or reoccurring symptom(s)? New What have you tried to help your symptom(s)? Patient given medication in IV during dialysis and using crackers at home. Why was appointment not scheduled? Patient refusing appointment regardless of availability. {Include why the patient is declining an appointment (if known) and what specific treatment the patient is requesting in the additional comments field. Also, route message to practice clinical pool Daughter states patient was just seen (01/11/24) and wants to have PCP recommend what needs to be done next. Could this be medication related? Additional Comments: Please call daughter prior to 1:00 as daughter having EGD and will unable to take call. Does message need to be routed? Yes-Action Needed documented in this encounter Plan of Treatment Upcoming Encounters Date Type Department Care Team (Latest Contact Info) Description 07/13/2024 9:00 AM TELEVISION ANTENNA INSTALLER Hospital Encounter [facility] GI Lab [address] [place] [address] J[facility] MD [facility] [address] [address] 07/13/2024 9:00 AM TELEVISION ANTENNA INSTALLER - 07/13/2024 9:30 AM TELEVISION ANTENNA INSTALLER Surgery [facility] GI Lab [address] [place] [address] Jaya Grier MD [address] [facility] [address] [place] [address] ESOPHAGOGASTRODUODENOSCOPY Scheduled Procedures Name Priority Associated Diagnoses Date/Ti me ESOPHAGOGASTRODUODENOSCOPY Anemia, unspecified type Gastritis without bleeding, unspecified chronicity, unspecified gastritis type 07/13/2024 9:00 AM TELEVISION ANTENNA INSTALLER COLONOSCOPY Iron deficiency anemia due to chronic blood loss documented as of this encounter Visit Diagnoses Not on filedocumented in this encounter 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 06/26/2024 3:05 AM TELEVISION ANTENNA INSTALLER documented as of this encounter Care Teams Oracle R12 Developer Relationship Specialty Start Date End Date Cherelle Corcoran MD PCP - General Family Medicine 08/30/19 Mark Queen MD Consulting Physician Infectious Diseases 01/10/20 Rudolph Welch MD [address] [facility] [address] [place] [address] Consulting Physician Infectious Diseases 12/05/22 Markie Ryan MD [address] [facility] [address] [place] [address] Consulting Physician Nephrology 12/05/22 Dulce Vega, ALIREZA [address] [place] [address] [address] [place] [address] Supervisor Smoke Control 10/07/23 05/03/24 [place] [address] [place] [address] [address] Consulting Physician Nephrology 10/22/23 Jaya Grier MD [address] [facility] [address] [place] [address] Consulting Physician Gastroenterology 02/01/24 documented as of this encounter
--- OUTSIDE RECORDS SUMMARY | 2024-07-04 04:03 | XMS_ITS | Encounter Summary ---
Author Organization [facility] Healthcare Address [address] [place] [address] Care Team Providers Care Induction Heat Treater Name Role Phone Cherelle Corcoran MD Primary Care Pro vider Mark Queen MD Unavailable [phone] Rudolph Welch MD Unavailable [phone] Markie Ryan MD Unavailable [phone] Dulce Vega RN Unavailable [phone] Jimbo Strauss MD Unavailable [phone] Encounter Details Date Type Department Care Team (Late st Contact Info) Description 01/26/2024 Plan of Care Documentation [facility] Medical Office Bldg 1 OP Physical Therapy [address] [place] [id number] Social History Tobacco Use Types Packs/Day [...] doctor or pharmacy Often 01/20/2024 [facility] Utilities Answer Date Recorded In the past [...] any clubs o r organizations such as voodoo groups, unions, fraternal or athletic groups, or [...] place to sleep or slept in a group home (including now)? No 10/30/2023 Housing Stability [...] were you homeless or living in a group home (including now)? No 12/21/2023 Personal Safety Answer Date Recorded Have you ever been in or are you currently in a harmful physical or emotional relationship or is someone making you feel afraid or unsafe? 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 AM RECONNAISSANCE CREWMEMBER Gender Identity Female 02/08/2020 6:39 PM CDT Sexual Orientation Not on file documented as of this encounter Plan of Treatment Upcoming Encounters Date Type Department Care Team (Latest Contact Info) Description 07/13/2024 9:00 AM RECONNAISSANCE CREWMEMBER Hospital Encounter [facility] GI Lab [address] [place] [address] Jaya Grier MD [facility] [address] [address] 07/13/2024 9:00 AM RECONNAISSANCE CREWMEMBER - 07/13/2024 9:30 AM RECONNAISSANCE CREWMEMBER Surgery [facility] GI Lab [address] [place] [address] Jaya Grier MD [address] [facility] [address] [place] [address] ESOPHAGOGASTRODUODENOSCOPY Scheduled Procedures Name Priority Associated Diagnoses Date/Ti me ESOPHAGOGASTRODUODENOSCOPY Anemia, unspecified type Gastritis without bleeding, unspecified chronicity, unspecified gastritis type 07/13/2024 9:00 AM RECONNAISSANCE CREWMEMBER COLONOSCOPY Iron deficiency anemia due to chronic blood loss documented as of this encounter Visit Diagnoses Not on filedocumented in this encounter 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 06/26/2024 3:05 AM RECONNAISSANCE CREWMEMBER documented as of this encounter Care Teams Induction Heat Treater Relationship Specialty Start Date End Date Cherelle Corcoran MD PCP - General Family Medicine 08/30/19 Mark Queen MD Consulting Physician Infectious Diseases 01/10/20 Rudolph Welch MD [address] [facility] [address] [place] [address] Consulting Physician Infectious Diseases 12/05/22 Markie Ryan MD [address] [facility] [address] [place] [address] Consulting Physician Nephrology 12/05/22 Dulce Vega RN [address] [place] [address] [address] [place], [place] [id number] Travel Rn Or 10/07/23 05/03/24 [place] [address] [address] [facility] [address] [place] [address] Consulting Physician Nephrology 10/22/23 documented as of this encounter
--- OUTSIDE RECORDS SUMMARY | 2024-07-04 04:03 | XMS_ITS | Encounter Summary ---
Author Organization [facility] Healthcare Address [address] [place] [address] Care Team Providers Care High School Teacher Name Role Phone Cherelle Corcoran MD Primary Care Pro vider Mark Queen MD Unavailable [phone] Rudolph Welch MD Unavailable Markie Ryan MD Unavailable [phone] Dulce Vega RN Unavailable [phone] Jimbo Strauss MD Unavailable [phone] Reason for Referral * Diagnostic Imaging (Routine) - Closed Specialty Diagnoses / Procedures Referred By Contac t Referred To Contact Diagnoses Encounter for screening mammogram for breast cancer Procedures Screening Mammogram Bilateral W Cherelle Rodríguez MD [facility] [address] Phone: tel: fax: [address] [phone] Referral ID Status Reason Start Date Expiration Date Visits Re quested Visits Authorized [id number] Closed 11/10/2023 12/09/2024 1 1 Reason for Visit * Diagnostic Imaging (Routine) - Closed Specialty Diagnoses / Procedures Referred By Contflex t Referred To Contact Diagnoses Encounter for screening mammogram for breast cancer Procedures Screening Mammogram Bilateral W Cherelle Rodríguez MD [address] [facility] [address] [place] [address] Phone: tel: fax: [address] [phone] Referral ID Status Reason Start Date Expiration Date Visits Re quested Visits Authorized [id number] Closed 11/10/2023 12/09/2024 1 1 Encounter Details Date Type Department Care Team (Latest Contact Info) Description 01/22/2024 11:45 AM CDT - 01/22/2024 11:59 PM CDT Hospital Encounter [facility] Medical Office [facility] 1 Breast [facility] [address] [address] Encounter for screening mammogram for breast cancer Discharge Disposition: Discharge to home or [...] materials from doctor or pharmacy Often 01/20/2024 [facility] Utilities Answer Date Recorded In [...] time in the past 12 m [facility], were you homeless or living in a long-term (including now)? No 12/21/2023 Personal Safety Answer Date Recorded Have you ever been in or are you currently in a harmful physical or emotional relationship or is someone making you feel afraid or unsafe? 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 AM SENIOR GRADUATE ADVISOR Gender Identity Female 02/08/2020 6:39 PM [...] current use of insulin ([facility]) Use for continuous glucose monitoring. Change [...] as needed for rhinitis [employer] Madhav [address] [place] misc Use Madhav 3 reader to scan [...] (Latest Contact Info) Description 07/13/2024 9:00 AM [facility] Hospital Encounter [facility] GI Lab [address] [place] [address] Jaya Grier MD [address] [place] [address] 07/13/2024 9:00 AM SENIOR GRADUATE ADVISOR - 07/13/2024 9:30 AM [facility] Surgery [facility] GI Lab [address] [place] [address] Jaya Grier MD [address] [place] [address] ESOPHAGOGASTRODUODENOSCOPY Scheduled Procedures Name Priority Associated Diagnoses Date/Ti me ESOPHAGOGASTRODUODENOSCOPY Anemia, unspecified type Gastritis without bleeding, unspecified chronicity, unspecified gastritis type 07/13/2024 9:00 AM SENIOR GRADUATE ADVISOR COLONOSCOPY Iron deficiency anemia due to chronic blood loss documented as of this encounter Procedures Procedure Name Priority Date/Time Associated Diagnosis Comments SCREENING MAMMOGRAM BILATERAL W STALIN Schedule Routine, Read Routine (OP Routine) 01/22/2024 12:21 PM CDT Encounter for screening mammogram for breast cancer documented in this encounter Results * Screening Mammogram Bilateral W Stalin (01/22/2024 [...] age 40, based on guidelines of the [employer] (ACR Practice Parameter for the Performance of Screening and Diagnostic Mammography) and [employer]. 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 06/26/2024 3:05 AM SENIOR GRADUATE ADVISOR documented as of this encounter Care Teams High School Teacher Relationship Specialty Start Date End Date Cherelle Corcoran MD PCP - General Family Medicine 08/30/19 Mark Queen MD Consulting Physician Infectious Diseases 01/10/20 Rudolph Welch MD [address] [place] [address] Consulting Physician Infectious Diseases 12/05/22 Markie Ryan MD [address] [place] [address] Consulting Physician Nephrology 12/05/22 Dulce Vega, ALIREZA [address] [place] [address] [address] [place] [address] Icing Machine Operator 10/07/23 05/03/24 [place] [address] [address] [facility] [address] [place] [address] Consulting Physician Nephrology 10/22/23 documented as of this encounter
--- OUTSIDE RECORDS SUMMARY | 2024-07-04 04:03 | XMS_ITS | Encounter Summary ---
Author Organization [facility] Healthcare Address [address] [place] [address] Care Team Providers Care Farm Machinery Mechanic Name Role Phone Cherelle Corcoran MD Primary Care Pro vider Mark Queen MD Unavailable [phone] Rudolph Welch MD Unavailable [phone] Marike Ryan MD Unavailable [phone] Dulce Vega RN Unavailable Jimbo Strauss MD Unavailable [phone] Reason for Visit * Auth/Cert (Routine) Specialty Diagnoses / Procedures Referred By Contac t Referred To Contact Referral ID Status Reason Start Date Expiration Date Visits Re quested Visits Authorized [id number] 1 1 Encounter Details Date Type Department Care Team (Late st Contact Info) Description 01/20/2024 Home Care Visit [facility] Home Health - [place] [id number] [facility] [address] [place] [address] Yamilka Hoang, LULI PT DISCIPLINE DISCHARGE Social History Tobacco Use Types Packs/Day Years [...] materials from doctor or pharmacy Often 01/20/2024 [facility] Utilities Answer Date Recorded In the past 12 months has e [employer], [employer], oil, or water [employer] threatened to shut off services in your [...] any clubs o r organizations such as anabaptist groups, unions, fraternal or athletic groups, or [...] any time in the past 12 m [facility], were you homeless or living in a alf (including now)? No 12/21/2023 Personal Safety Answer Date Recorded Have you ever been in or are you currently in a harmful physical or emotional relationship or is someone making you feel afraid or unsafe? 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 AM COMMERCIAL LINES ACCOUNT EXECUTIVE Gender Identity Female 02/08/2020 6:39 PM CDT Sexual Orientation Not on file documented as of this encounter Plan of Treatment Upcoming Encounters Date Type Department Care Team (Latest Contact Info) Description 07/13/2024 9:00 AM COMMERCIAL LINES ACCOUNT EXECUTIVE Hospital Encounter [facility] GI Lab [address] [place] [address] Jaya Grier MD [address] [facility] [address] [address] 07/13/2024 9:00 AM COMMERCIAL LINES ACCOUNT EXECUTIVE - 07/13/2024 9:30 AM COMMERCIAL LINES ACCOUNT EXECUTIVE Surgery [facility] GI Lab [address] [place] [address] Jaya Grier MD [address] [address] ESOPHAGOGASTRODUODENOSCOPY Scheduled Procedures Name Priority Associated Diagnoses Date/Ti me ESOPHAGOGASTRODUODENOSCOPY Anemia, unspecified type Gastritis without bleeding, unspecified chronicity, unspecified gastritis type 07/13/2024 9:00 AM COMMERCIAL LINES ACCOUNT EXECUTIVE COLONOSCOPY Iron deficiency anemia due to chronic blood loss documented as of this encounter Visit Diagnoses Not on filedocumented in this encounter 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 06/26/2024 3:05 AM COMMERCIAL LINES ACCOUNT EXECUTIVE documented as of this encounter Home Health Visit - Care Plan Visit Details Visit Type -PT Discipline Nallely chakraborty Discipline -Physical Therapy Problems Problem Description Start Date Status Goals Interve ntions Homebound Status Disciplines: Skilled Disciplines Patient's homebound status 12/28/2023 Resolved on 01/20/2024 1 goal linked to scheduled/docume nted intervention 1 goal intervention scheduled/documen bruno in this visit Monitor patient's vital signs every home health visit Disciplines: SN, PT, OT, BATCHING OPERATOR, DOBIE MAN, Skilled Disciplines Monitor patient's vital signs every home health visit. 12/28/2023 Resolved on 01/20/2024 1 goal linked to scheduled/docume nted intervention 1 goal intervention scheduled/documen bruno in this visit Infection Prevention Disciplines: Skilled Disciplines Infection Prevention 12/28/2023 Resolved on 01/20/2024 1 goal linked to scheduled/docume nted intervention 1 goal intervention scheduled/documen bruno in this visit Safety concerns Disciplines: Skilled Disciplines Alteration in safety 12/28/2023 Resolved on 01/20/2024 1 goal linked to scheduled/docume nted intervention 2 goal interventions scheduled/documen bruno in this visit Remote Monitoring Disciplines: Skilled Disciplines HOMMED Needs 12/28/2023 Resolved on 01/20/2024 1 goal linked to scheduled/docume nted intervention 1 goal intervention scheduled/documen bruno in this visit Pain Disciplines: Core Disciplines Alteration in comfort 12/28/2023 Resolved on 01/20/2024 1 goal linked to scheduled/docume nted intervention 1 goal intervention scheduled/documen bruno in this visit Goals Goal Associated Problem Outcome Goal Met? Visit Notes Patient receives care at the most appropriate care setting Description: Patient receives care at the most appropriate care setting. Homebound Status No Measure vital signs during every home health visit during episode of care Description: Home superintendent stevedoring to measure vital signs during every home health visit during episode of care. Monitor patient's vital signs every home health visit No Verbalize signs of infection Description: Patient/caregiver will demonstrate knowledge of infection prevention strategies by verbalizing signs and symptoms of infection. Infection Prevention No Demonstrate use of safety precautions Description: Patient/caregiver maintains safe home environment as evidenced by remaining free from injury and demonstrates use of safety precautions. Safety concerns No Demonstrate knowledge of telehealth Description: Patient demonstrates knowledge of telemonitor use by transmitting vital signs daily. Remote Monitoring No Report that pain has been reduced or controlled Description: Patient/caregiver/family will verbalize satisfaction with the patients level of pain and symptom control. Pain No Interventions Intervention Associated Problem/Goal Status Variance Visit Notes Homebound Status Description: Patient is homebound due to unsteady gait/poor balance, fall risk, unable to complete ADLs/Personal care, pain limiting mobility and limited mobility as evidenced by recent hospitalization due to syncope requiring the use of an assistive device and another person to leave the home. Problem:Homebound Status Goal:Patient receives care at the most appropriate care setting Scheduled Monitor Vital Signs Description: Monitor blood pressure, pulse, oxygen saturation, respirations Problem:Monitor patient's vital signs every home health visit Goal:Measure vital signs during every home health visit during episode of care Scheduled Educate Patient on Infection Prevention Description: Instruct patient on signs and symptoms of infection IE: fever, odor, change in color, increased amount of drainage, purulent drainage, warmth. Problem:Infection Prevention Goal:Verbalize signs of infection Scheduled Instruct Fall Prevention Description: Instruct patient/caregiver in methods to prevent falls Problem:Safety concerns Goal:Demonstrate use of safety precautions Scheduled Assess safety Description: Assess patient safety Problem:Safety concerns Goal:Demonstrate use of safety precautions Scheduled Assess patient for HOMMED monitor Description: Assess if there is a need for telemonitor. Problem:Remote Monitoring Goal:Demonstrate knowledge of telehealth Scheduled Instruct on pain management techniques Description: Instruct in pharmacologic and nonpharmacologic pain management techniques. Problem:Pain Goal:Report that pain has been reduced or controlled Scheduled documented in this encounter Care Teams Farm Machinery Mechanic Relationship Specialty Start Date End Date Cherelle Corcoran MD PCP - General Family Medicine 08/30/19 Mark Queen MD Consulting Physician Infectious Diseases 01/10/20 Rudolph Welch MD [address] [facility] [address] [place] [address] Consulting Physician Infectious Diseases 12/05/22 Markie Ryan MD [address] [facility] [address] [place] [address] Consulting Physician Nephrology 12/05/22 Dulce Vega, ALIREZA [address] [place] [address] [address] [place] [address] University Counselor 10/07/23 05/03/24 [place] [address] [facility] [address] [place] [address] Consulting Physician Nephrology 10/22/23 documented as of this encounter
--- OUTSIDE RECORDS SUMMARY | 2024-07-04 04:03 | XMS_ITS | Encounter Summary ---
Author Organization [facility] Healthcare Address [address] [place] [address] Care Team Providers Care Process Controller Name Role Phone Cherelle Corcoran MD Primary Care Pro vider Mark Queen MD Unavailable [phone] Rudolph Welch MD Unavailable [phone] Markie Ryan MD Unavailable [phone] Dulce Vega RN Unavailable Jimbo Strauss MD Unavailable [phone] Reason for Visit * Auth/Cert (Routine) Specialty Diagnoses / Procedures Referred By Contac t Referred To Contact Referral ID Status Reason Start Date Expiration Date Visits Re quested Visits Authorized [id number] 1 1 Encounter Details Date Type Department Care Team (Late st Contact Info) Description 01/20/2024 9:00 AM CDT Home Care Visit [facility] [address] [address] [address] [place] [address] Yamilka Hoang, PT PT REASSESSMENT Social History Tobacco Use Types Packs/Day Years [...] from doctor or pharmacy Often 01/20/2024 [facility] Utilities Answer Date Recorded In the past 12 months has e [employer], [employer], oil, or water [employer] threatened to shut off services in your [...] often do you attend chur ch or oriental orthodox services? More than 4 times per year 12/21/2023 Do you belong to any clubs o r organizations such as lutheran groups, unions, fraternal or athletic groups, or [...] any time in the past 12 m [facility], were you homeless or living in a [facility] (including now)? No 12/21/2023 Personal Safety Answer Date Recorded Have you ever been in or are you currently in a harmful physical or emotional relationship or is someone making you feel afraid or unsafe? 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 Gender Identity Female 02/08/2020 6:39 PM CDT Sexual Orientation Not on file documented as of this encounter Last Filed Vital Signs Vital Sign Reading Time Taken Comments Blood Pressure 136/60 01/20/2024 9:22 AM CDT Pulse 88 01/20/2024 9:22 AM CDT Temperature 36.1 ??C (97 ??F) 01/20/2024 9:22 AM CDT Respiratory Rate 18 01/20/2024 9:22 AM CDT Oxygen Saturation 98% 01/20/2024 9:22 AM CDT Inhaled Oxygen Concentration - - Weight - - Height - - Body Mass Index - - documented in this encounter Miscellaneous Notes * Home Health Visit Narrative - Yamilka Hoang, PT - 01/20/2024 9:14 AM CDT Pt reports she feels slight improvement in L shoulder pain. Pt is scheduled to have MRI of L shoulder on 01/21. Pt scheduled to begin outpatient PT at [facility] on 01/25. At this time pt has met PT goals Pt and cg are agreeable to DC, to transition to outpatient therapy next week. documented in this encounter Plan of Treatment Upcoming Encounters Date Type Department Care Team (Latest Contact Info) Description 07/13/2024 9:00 AM LINUX NETWORK ADMINISTRATOR Hospital Encounter [facility] [address] [place] [id number] Jaya Grier MD [facility] [facility] [address] [place] [id number] 07/13/2024 9:00 AM LINUX NETWORK ADMINISTRATOR - 07/13/2024 9:30 AM LINUX NETWORK ADMINISTRATOR Surgery [facility] [address] [place] [id number] Jaya Grier MD [facility] [address] [place] [id number] ESOPHAGOGASTRODUODENOSCOPY Scheduled Procedures Name Priority Associated Diagnoses Date/Ti ri ESOPHAGOGASTRODUODENOSCOPY Anemia, unspecified type Gastritis without bleeding, unspecified chronicity, unspecified gastritis type 07/13/2024 9:00 AM LINUX NETWORK ADMINISTRATOR COLONOSCOPY Iron deficiency anemia due to chronic blood loss documented as of this encounter Visit Diagnoses Not on filedocumented in this encounter 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 06/26/2024 3:05 AM LINUX NETWORK ADMINISTRATOR documented as of this encounter Home Health Visit - Care Plan Visit Details Visit Type -PT Reassessment Discipline -Physical Therapy Problems Problem Description Start Date Status Goals Interventions Homebound Status Disciplines: Skilled Disciplines Patient's homebound status 12/28/2023 Resolved on 01/20/2024 1 goal linked to scheduled/documen bruno intervention 1 goal intervention scheduled/documen bruno in this visit Monitor patient's vital signs every home health visit Disciplines: SN, PT, OT, LOG ROLLER, TRIMMER MACHINE OPERATOR, Skilled Disciplines Monitor patient's vital signs every home health visit. 12/28/2023 Resolved on 01/20/2024 1 goal linked to scheduled/documen bruno intervention 1 goal intervention scheduled/documen bruno in this visit Infection Prevention Disciplines: Skilled Disciplines Infection Prevention 12/28/2023 Resolved on 01/20/2024 1 goal linked to scheduled/documen bruno intervention 1 goal intervention scheduled/documen bruno in this visit Safety concerns Disciplines: Skilled Disciplines Alteration in safety 12/28/2023 Resolved on 01/20/2024 1 goal linked to scheduled/documen bruno intervention 2 goal interventions scheduled/documen bruno in this visit Remote Monitoring Disciplines: Skilled Disciplines HOMMED Needs 12/28/2023 Resolved on 01/20/2024 1 goal linked to scheduled/documen bruno intervention 2 goal interventions scheduled/documen bruno in this visit Pain Disciplines: Core Disciplines Alteration in comfort 12/28/2023 Resolved on 01/20/2024 1 goal linked to scheduled/documen bruno intervention 1 goal intervention scheduled/documen bruno in this visit PT Activity Tolerance/Energy Conservation Disciplines: Physical Therapy Impaired activity tolerance for functional activity 01/04/2024 Resolved on 01/20/2024 1 goal linked to scheduled/documen bruno intervention 1 problem intervention scheduled/documen bruno in this visit PT Impaired Functional Mobility Disciplines: Physical Therapy Impaired functional mobility 01/04/2024 Resolved on 01/20/2024 3 goals linked to scheduled/documen bruno interventions 3 problem interventions scheduled/documen bruno in this visit Goals Goal Associated Problem Outcome Goal Met? Visit Notes Patient receives care at the most appropriate care setting Description: Patient receives care at the most appropriate care setting. Homebound Status No Measure vital signs during every home health visit during episode of care Description: Home graphics production specialist to measure vital signs during every home [...] of pain and symptom control. Pain No Improvement in Activity Tolerance (Basic Mobility) Description: Patient/caregiver will perform ADL/IADL utilizing energy conservation techniques and recommendations by physical therapy discharge . Patient to demonstrate improved breathing pattern at rest and with activity by therapy discharge. PT Activity Tolerance/Energy Conservation Met Yes Improvement in balance Description: Improve KENN/Tinetti score to 19/28 by physical therapy discharge . PT Impaired Functional Mobility Met Yes Improvement in Gait/Stair Training Description: Patient will ambulate 200 feet in home using least restrictive assistive device and stand by assist by physical therapy discharge . Patient will negotiate 5 steps using least restrictive assistive device and stand by assist out of home to access transportation/community activities by physical therapy discharge . PT Impaired Functional Mobility Adequate for Discharge No Improvement in Performance with Bed Mobility/Transfers Description: Patient able to perform sit to stand, toilet, tub, bed and Cartransfers using least restrictive assistive device with stand assist by physical therapy discharge . Improve FTSTS score by 5 seconds, compared to initial score by physical therapy discharge . PT Impaired Functional Mobility Met Yes Interventions Intervention Associated Problem/Goal Status Variance Visit [...] care at the most appropriate care setting Completed Patient is homebound due to unsteady gait/poor balance, fall risk, unable to complete ADLs/Personal care, pain limiting mobility and limited mobility as evidenced by recent hospitalization due to syncope requiring the use of an assistive device and another person to leave the home. Monitor Vital Signs Description: Monitor blood pressure, pulse, oxygen saturation, respirations Problem:Monitor patient's vital signs every home health visit Goal:Measure vital signs during every home health visit during episode of care Completed Educate Patient on Infection Prevention Description: Instruct patient on signs and symptoms of infection IE: fever, odor, change in color, increased amount of drainage, purulent drainage, warmth. Problem:Infection Prevention Goal:Verbalize signs of infection Completed Instruct Fall Prevention Description: Instruct patient/caregiver in methods to prevent falls Problem:Safety concerns Goal:Demonstrate use of safety precautions Completed Assess safety Description: Assess patient safety Problem:Safety concerns Goal:Demonstrate use of safety precautions Completed Assess patient for HOMMED monitor Description: Assess if there is a need for telemonitor. Problem:Remote Monitoring Goal:Demonstrate knowledge of telehealth Completed Transmit Vital Signs Description: Transmit vital signs per telemonitor daily when installed. Problem:Remote Monitoring Goal:Demonstrate knowledge of telehealth Completed Instruct on pain management techniques Description: Instruct in pharmacologic and nonpharmacologic pain management techniques. Problem:Pain Goal:Report that pain has been reduced or controlled Completed Energy Conservation Education Description: Instruct patient/caregiver in techniques for improved activity tolerance. Problem:PT Activity Tolerance/Energy Conservation Completed Gait/Stair Training Description: Instruct patient/caregiver and perform gait/stair training. Problem:PT Impaired Functional Mobility Completed Pt amb in home w no AD with L UE flexed and adducted across body Pt demonstrates dec lanny, dec step height bilat Pt does have 2WW however has not been using d/t L shoulder pain. Instructed pt on steps out of home, 1 small step from front door then single platform step down to sidewalk Pt req R handhold support / Min (A) for safety with negotiating steps. Pt dtr not present during visit however pt does have assist at all times when leaving the home. Bed Mobility/Transfer Training Description: Instruct patient/caregiver and perform bed mobility/transfer training. Problem:PT Impaired Functional Mobility Completed Pt transfers sit > stand from armchair pushing up w BUE from arm rests, pt does grimace with performing and indicates inc pain in L shoulder Pt able to complete transfer w/o assist however with moderate difficulty and req extra time to complete. No LOB noted upon standing. Pt declines bed transfer, she reports she has no difficulty with Balance Training/Activities Description: Instruct patient/caregiver and perform balance training activities. Problem:PT Impaired Functional Mobility Completed Instructed pt on HEP for standing BLE strengthening and pt performs w light support R UE on countertop, with mild cueing for correct return: Heel raises, Hip flexion w knee flexion, Hip abd, Hamstring curls x 10 reps ea BLE. Pt tolerates all therex well. Instructed pt to continue HEP seated and standing 2x/day; pt verb agreement. Pt will likely require cg cueing to maintain HEP, d/t cognitive deficit; pt and dtr have been provided written/visual HEP instructions for reference. documented in this encounter Care Teams Process Controller Relationship Specialty Start Date End Date Cherelle Corcoran MD PCP - General Family Medicine 08/30/19 Mark Queen MD Consulting Physician Infectious Diseases 01/10/20 Rudolph Welch MD [address] [place] [address] Consulting Physician Infectious Diseases 12/05/22 Markie Ryan MD [address] [place] [address] Consulting Physician Nephrology 12/05/22 Dulce Vega RN [address] [place] [address] [address] [place] [address] Plant Care Worker 10/07/23 05/03/24 [place] [id number] [address] [facility] [facility] [address] [place] [address] Consulting Physician Nephrology 10/22/23 documented as of this encounter
--- OUTSIDE RECORDS SUMMARY | 2024-07-04 04:03 | XMS_ITS | Encounter Summary ---
Author Organization [facility] Healthcare Address [address] [place] [address] Care Team Providers Care Gaming Commissioner Name Role Phone Duane Corcoran MD Primary Care Pro vider Mark Queen MD Unavailable [phone] Rudolph Welch MD Unavailable Markie Ryan MD Unavailable [phone] Dulce Vega RN Unavailable [phone] Jimbo Strauss MD Unavailable [phone] Jaya Rivera MD Unavailable Reason for Referral * Consultation (Routine) - Authorized Specialty Diagnoses / Procedures Referred By Contac t Referred To Contact Physical Therapy Diagnoses Unsteadiness on feet Syncope, unspecified syncope type Age-related physical debility Telemaque, Michoacano Maldonado MD [address] [place] [address] Phone: tel: fax: [facility] OP Physical Therapy [address] [address] Phone: tel: fax: Referral ID Status Reason Start Date Expiration Date Visits Requested Visits Authorized [id number] Authorized Specialty Services Required 02/01/2024 03/02/2025 24 24 Question Answer PTRFR PT Evaluate and Treat Therapy options discussed with patient? Yes Location provided for therapy services is: Patient requested/Patient preferred Please select the performing region: [facility] [[id number]] Please select the performing department: [facility] ON OP PT [[id number]] # of visits: 24 Reason for Visit * Reason Comments Arm Pain Nausea Vomiting * Auth/Cert (Routine) Specialty Diagnoses / Procedures Referred By Contflex t Referred To Contact Diagnoses Acute blood loss anemia Upper GI bleeding ESRD (end stage renal disease) on dialysis (HCC) Hypertension, unspecified type Complete tear of left rotator cuff, unspecified whether traumatic Procedures na Referral ID Status Reason Start Date Expiration Date Visits Re quested Visits Authorized [id number] 1 1 Encounter Details Date Type Department Care Team (Latest Contact Info) Description 01/29/2024 7:10 PM CDT - 02/01/2024 6:53 PM CDT Hospital Encounter [facility] 4 Med Surg [facility] [place] [address] Julio Landeros DO [address] [place] [address] Herve Tavera MD [facility] [address] Michoacano Gibson MD [facility] [place] [address] Upper GI bleeding (Primary Dx); Acute blood loss anemia; Complete tear of left rotator cuff, unspecified whether traumatic; Hypertension, unspecified type; ESRD (end stage renal disease) on dialysis (HCC); Coffee ground emesis; ESRD on dialysis (HCC) [N18.6, Z99.2]; Unsteadiness on feet; Syncope, unspecified syncope type; Age-related physical debility Discharge Disposition: Discharge to home or self [...] from doctor or pharmacy Often 01/20/2024 [facility] Utilities Answer Date Recorded In [...] any clubs o r organizations such as restoration groups, unions, fraternal or athletic groups, or [...] any time in the past 12 [facility], were you homeless or living in a mcc (including now)? No 02/01/2024 Personal Safety Answer Date Recorded Have you ever been in or are you currently in a harmful physical or emotional relationship or is someone making you feel afraid or unsafe? 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 Gender Identity Female 02/08/2020 6:39 PM CDT Sexual Orientation Not on file documented as of this encounter Last Filed Vital Signs Vital Sign Reading Time Taken Comments Blood Pressure 144/63 02/01/2024 3:10 PM CDT Pulse 76 02/01/2024 3:10 PM CDT Temperature 37.2 ??C (99 ??F) 02/01/2024 3:10 PM CDT Respiratory Rate 18 02/01/2024 3:10 PM CDT Oxygen Saturation 99% 02/01/2024 3:10 PM CDT Inhaled Oxygen Concentration - - Weight 61.3 kg (135 lb 2.3 oz) 01/30/2024 1:00 P M CDT Height 157.5 cm (5' 2 ) 01/30/2024 4:56 AM CDT Body Mass Index 24.72 01/30/2024 4:56 AM CDT documented in this encounter Discharge Summaries * Michoacano Gibson MD - 02/01/2024 8:22 AM CDT Inpatient Discharge Summary Patient Name - Sixto Chakraborty Patient Age - 73 yrs Patient - [id number] [facility] - [id number] Document Creation Date: 02/01/2024 Admitting Provider, MD: Malcolm Duvall MD Discharge Provider, : Michoacano Gibson MD Primary Care Physician at Discharge: Duane Corcoran MD [phone] Admission Date: 01/29/2024 Discharge Date/time: 02/01/2024 Admission Location: [facility] LOS - LOS: 2 days DETAILS OF HOSPITAL STAY Hospital Problems/Diagnoses Principal Problem: Upper GI bleeding Active Problems: Coffee ground emesis Chronic diastolic heart failure Left arm pain Reason for Hospitalization: UGIB Hospital Course: Sixto Chakraborty is a 73 y.o. year old female with history significant for HTN, HLD, DM Type II, dementia, CHF, anemia, GERD, ESRD T/Th/Sat., L rotator cuff tear, and neuropathy presenting to the ED w/c/o L shoulder pain onset about 1x month ago. Reports melena over the last week, coffee-ground emesis. Admitted for GI bleed evaluation. ESRD noted. Elevated troponin no delta likely 2/2 decreased renal clearance in the setting ESRD. Severe acute on chronic Normocytic anemia noted. 1 unit PRBC ordered chest x-ray indicated mild pulmonary vascular congestion and mild bibasilar atelectasis. CTA abdomen and pelvis indicated constipation. No obstruction. No active site of bleeding Upper GI bleed. Started on Protonix. Gi performed endoscopy which indicated gastritis. Biopsies obtained. Recommended Protonix Carafate for 8 weeks. Follow up biopsy results. Consider gastritis 2/2 iron pills refractory to treatment. Patient's diet advance as tolerated. Reported left arm pain. Ordered x-rays of left shoulder, arm, forearm. Negative. EKG negative. Patient clinically improved discharged in stable condition with follow up with primary care physician, GI and previously scheduled specialty appointments. Arrange for patient to continue outpatient therapy on discharge Discharge Details Physical Exam at Discharge: Discharge Condition: good Pulse: 76 Resp: 18 BP: 144/63 Temp: 37.2 ??C (99 ??F) Weight: 61.3 kg (135 lb 2.3 oz) Pertinent Exam Findings at Discharge: Constitutional: NAD, comfortable, lying in bed Eyes: anicteric, vision grossly intact ENT: MMM Lungs: Normal depth and effort of breathing, on RA Heart: Regular, no murmur, no ankle edema. Abd: +BS, Non Tender, Non distended : no indwelling joy catheter Neuro: No new deficits appreciated Musculoskeletal: ROM grossly intact Skin: warm dry Psychiatric: alert, oriented x3 Discharge Disposition: Discharge to home or self care Code Status at Discharge: Full Code Active Issues & Recommended Plan for Follow-up: primary care physician, GI and previously scheduled specialty appointments Allergies: Patient has no known allergies. Discharge Medications: Your medication list START taking these medications Instructions Last Dose Given Next Dose Due pantoprazole DR 40 mg EC tablet Commonly known as: PROTONIX Take 1 tablet (40 mg total) by mouth 2 (two) times a day sucralfate 100 mg/mL suspension Commonly known as: CARAFATE Take 10 mL (1 g total) by mouth 4 (four) times a day (with meals and nightly) CHANGE how you take these medications Instructions Last Dose Given Next Dose Due benztropine 2 mg tablet Commonly known as: COGENTIN What changed: Another medication with the same name was removed. Continue taking this medication, and follow the directions you see here. Take 1 tablet (2 mg total) by mouth daily hydrALAZINE 25 mg tablet Commonly known as: APRESOLINE What changed: how much to take when to take this Take 1 tablet (25 mg total) by mouth 2 (two) times a day CONTINUE taking these medications Instructions Last Dose Given Next Dose Due acetaminophen 500 mg capsule Take 2 capsules (1,000 mg total) by mouth 3 (three) times a day as needed for mild pain (pain scale1-4) aspirin 81 mg chewable tablet atorvastatin 40 mg tablet Commonly known as: LIPITOR Take 1 tablet (40 mg total) by mouth nightly calcium acetate(phosphat bind) 667 mg capsule Doctor's comments: Patient requests 90 days supply Commonly known as: PHOSLO TAKE 1 CAPSULE(667 MG) BY MOUTH THREE TIMES DAILY WITH MEALS carvediloL 3.125 mg tablet Commonly known as: COREG Take 1 tablet (3.125 mg total) by mouth 2 (two) times a day with meals docusate sodium 100 mg capsule Commonly known as: COLACE Take 1 capsule (100 mg total) by mouth every 12 (twelve) hours Easy Touch 32 gauge x 5/32 needle Generic drug: pen needle, diabetic USE DIRECTED FOUR TIMES DAILY FeroSuL 325 mg (65 mg iron) tablet Generic drug: ferrous sulfate Take 1 tablet (325 mg total) by mouth daily with breakfast flash glucose scanning reader [facility] Use Madhav 3 reader to scan Madhav 3 sensor fluticasone propionate 50 mcg/actuation nasal spray Commonly known as: FLONASE Administer 2 sprays into each nostril daily as needed for rhinitis FreeStyle Madhav 2 Sensor kit Doctor's comments: Type 2 diabetic, on 2 insulin Generic drug: flash glucose sensor Use to continually monitor glucose, change every 14 days FreeStyle Madhav 3 Lyons misc Generic drug: blood-glucose meter,continuous Use Madhav 3 reader to scan Madhav 3 sensor FreeStyle Madhav 3 Sensor device Generic drug: blood-glucose sensor Use for continuous glucose monitoring. Change sensor every 14 days gabapentin 100 mg capsule Commonly known as: NEURONTIN Take 100 mg 3 times per week after hemodialysis. insulin glargine 100 unit/mL (3 mL) pen for injection Commonly known as: LANTUS, BASAGLAR, SEMGLEE Inject 18 Units under the skin nightly insulin lispro 100 unit/mL vial for injection Commonly known as: HumaLOG, ADMELOG Inject 4 Units under the skin 3 (three) times a day before meals Gets 4 units at baseline then 1 unit for every 50 over 150 lidocaine 4 % adhesive patch,medicated Commonly known as: ASPERCREME Place 1 patch on the skin daily as needed to lower back NIFEdipine 60 mg 24 hr tablet Doctor's comments: Patient requests 90 days supply Commonly known as: PROCARDIA XL/ADALAT CC TAKE 1 TABLET BY MOUTH DAILY polyethylene glycol 17 gram/dose bulk powder Commonly known as: MIRALAX Take 17 g by mouth daily as needed (Constipation) risperiDONE 2 mg tablet Commonly known as: RisperDAL Take 1 tablet (2 mg total) by mouth nightly traMADoL 25 mg tablet Commonly known as: ULTRAM Take 1 tablet (25 mg total) by mouth every 8 (eight) hours as needed for pain STOP taking these medications diclofenac sodium 1 % gel Commonly known as: VOLTAREN famotidine 10 mg tablet Commonly known as: PEPCID Where to Get Your Medications These medications were sent to [id number] - [address], [place] [address] benztropine 2 mg tablet hydrALAZINE [address] 40 mg EC tablet risperiDONE 2 mg tablet sucralfate 100 mg/mL suspension Time Spent in Discharge Process: I have spent 58 minutes on discharge planning activities. Time spent was on Coordination of care, Follow up , Counselling with patient/family, discharge exam, and parent/patient education Test Results Pending at Discharge (If Blank, None Found): Pending Labs Order Current Status Surgical pathology Collected (01/31/24 1335) Operative Procedures Performed (If Blank, None Found): Procedure(s): ESOPHAGOGASTRODUODENOSCOPY BIOPSY Outpatient Follow-Up: Future Appointments Date Time Provider Department Center 02/02/2024 10:45 AM Amanda Hodges PTA [facility] OPPT E MOB 1 02/04/2024 10:45 AM MELINDA FRY [facility] OPPT E MOB 1 02/05/2024 9:30 AM Perico Raphael PA OSM OS 340 [facility] Specialty 02/09/2024 10:45 AM MELINDA FRY [facility] OPPT E MOB 1 02/11/2024 10:45 AM Amanda Hodges, CRYPTOGRAPHER [facility] OPPT MHE MOB 1 02/11/2024 3:30 PM Duane Corcoran MD PCP 210 02/15/2024 1:15 PM Shea Evangelista, RD CH Diab Ed [facility] Main 02/16/2024 10:45 AM Amanda Hodges, CRYPTOGRAPHER [facility] OPPT MHE MOB 1 02/18/2024 10:45 AM Vivien Cantor, CRYPTOGRAPHER [facility]1 OPPT MHE MOB 1 02/23/2024 10:45 AM Rick Oconnor, CRYPTOGRAPHER [facility]1 OPPT MHE MOB 1 02/25/2024 10:45 AM Rick Oconnor, CRYPTOGRAPHER [facility]1 OPPT MHE MOB 1 03/01/2024 10:45 AM Rick Oconnor, CRYPTOGRAPHER [facility]1 OPPT MHE MOB 1 03/03/2024 10:45 AM Hattie Miranda, CRYPTOGRAPHER [facility]1 OPPT MHE MOB 1 03/08/2024 9:45 AM Kayden Iyer, PT [facility]1 OPPT MHE MOB 1 03/16/2024 2:15 PM Adryan Swenson MD [facility] Specialty Contact Information for Follow-ups Duane Corcoran MD Specialty: Family Medicine [address] [place] [address] Next Steps: Schedule an appointment as soon as possible for a visit Comments: Follow up with established provider: 1 week Questions: To provider: DUANE CORCORAN Anuj, MD Specialty: Gastroenterology, Internal Medicine Relationship: Consulting Physician [address] [place] [address] Next Steps: Schedule an appointment as soon as possible for a visit Comments: Follow up with established provider: Other (specify) 8 weeks for repeat Endoscopy to evaluate the healing Questions: To provider: JAYA RIVERA [facility] [address] [place] [phone] Next Steps: Follow up Questions: Reason for Referral: PT Evaluate and Treat Therapy options discussed with patient?: Yes Location provided for therapy services is: Patient requested/Patient preferred Please select the performing region: [facility] Please select the performing department: [facility] ON OP PT # of visits: 24 Referral Status: Ready for Initial Scheduling Janis Hanson MD Specialty: Nephrology, Internal Medicine 3 [facility] [address] [facility] [address] Next Steps: Follow up Instructions: please keep dialysis appointments as scheduled Please schedule an appointment with the following provider(s): Duane Corcoran MD [address] [facility] [address] [facility] [address] Schedule an appointment as soon as possible for a visit Jaya Rivera MD [address] [facility] [address] [facility] [address] Schedule an appointment as soon as possible for a visit [facility] [address] [facility] [phone] Janis Hanson MD 3 [facility] [address] [facility] [phone] Follow up please keep dialysis appointments as scheduled ANCILLARY INFORMATION Other Procedures & Diagnostic Tests: CTA Abdomen Pelvis Result Date: 01/30/2024 EXAM DESCRIPTION: CTA ABDOMEN PELVIS REASON FOR STUDY: GI bleed Per ER Charge Olivia PT to get dialysis on sat during day prior to 10pm Triage note Pt reports she is having L arm pain for 1-2 weeks. Blew to raise arm but causes pain. States she gets dialysis tues, thurs and sat. Denies injury. Had MRI done today regarding arm. Pt's daughter adds pt hasn't been feeling well for a couple weeks and has been having n/v and last night vomited coffee ground emesis. note Chief Complaint Patient presents with Arm Pain Nausea Vomiting HPI HPI Sixto Chakraborty is a 73 y.o. female w/ PMHx including HTN, HLD, DM Type II, dementia, CHF, anemia, GERD, ESRD, L rotator cuff tear, and neuropathy presenting to the ED w/ c/o L shoulder pain onset about 1x month ago. Pt denies any injury and had an MRI done today regarding her arm. Pt states she has been taking Tylenol for pain. Pt also endorses black stools onset 1x week ago and pt's daughter reports an episode of coffee ground emesis last night. Pt alsoendorses cough and vomiting. Pt denies ABD pain, nausea, heartburn, fever, chills, cold, and any other associated symptoms. Pt reports she gets Dialysis T//Thu TECHNIQUE: CTA scan of the abdomen and pelvis performed without and with intravenous and without oral contrast using helical scanning technique with dynamic intravenous contrast injection. Precontrast, arterial, and portal venous phase images of the abdomen and pelvis were acquired. Images reviewed with lung, soft tissue and bone windows. Reconstructed coronal and sagittal MPR images reviewed. All images stored on PACS. 3D MIP imagesrendered on scanning unit and reviewed at time of interpretation. Automated exposure control was used as a dose optimization technique for this examination. CONTRAST TYPE/DOSE: 100mL of IOVERSOL 350 MG IODINE/ML INTRAVENOUS SYRINGE injected via intravenous COMPARISON: 12/19/2019 FINDINGS: VASCULATURE: No dissection, aneurysm, intramural hematoma, rupture, or penetrating atherosclerotic ulcer. No large vessel occlusion. CELIAC TRUNK: No flow limiting stenosis, dissection, or aneurysm. SUPERIOR MESENTERIC ARTERY: No flow limiting stenosis, dissection, or aneurysm. RIGHT RENAL ARTERY: No flow portillo iting stenosis, dissection, or aneurysm. LEFT RENAL ARTERY: No flow limiting stenosis, dissection, or aneurysm. INFERIOR MESENTERIC ARTERY: No flow limiting stenosis, dissection, or aneurysm. AORTA: No flow limiting stenosis, dissection, or aneurysm. Minor atherosclerotic calcification is noted. ILIAC ARTERIES: No flow limiting stenosis, dissection, or aneurysm. LOWER CHEST: No significant pulmonary abnormalities. No effusion. LIVER: Normal size. No identified cystic or solid masses. GALLBLADDER: Unremarkable BILE DUCTS: No intrahepatic or extrahepatic ductal dilatation. SPLEEN: Normal size. No focal lesions. PANCREAS: No identified cystic or solid masses. No significant calcifications. No a djacent inflammation or peripancreatic fluid collections. Pancreatic duct not dilated. ADRENALS: Normal. KIDNEYS/URINARY TRACT: No identified significant cystic or solid masses. No stones. No hydronephrosis or hydroureter. Symmetric enhancement. Normal bladder. GI: Prominent amount of stool is seenin the colon. This is particularly evident in the transverse and ascending colon. This may represent constipation. No dilated bowel is seen to suggest obstruction. Small bowel appears grossly unremarkable. The stomach appears unremarkable. PERITONEUM: No ascites or free air. RETROPERITONEUM: No mass or adenopathy. REPRODUCTIVE: No significant abnormality. MUSCULOSKELETAL: No significant abnormality. OTHER: No other abnormality. IMPRESSION: Prominent amount of stool in the colon may suggest constipation. No evidence obstruction is seen. No active site of hemorrhage is clearly identified. THIS IS AN ELECTRONICALLY VERIFIED FINAL REPORT 01/30/2024 12:43 AM - Electronically signed by Salvador Marques M.D. KH: ROSA MARIA Report ID: [id number] ReadingLocation: [id number] MRI Shoulder Left WO Contrast Result Date: 01/29/2024 EXAM DESCRIPTION: MRI SHOULDER LEFT WO CONTRAST REASON FOR STUDY: Shoulder pain, rotator cuff disorder suspected, nondiagnostic xray, LEFT SHOULDER PAIN Shoulder pain, rotator cuff disorder suspected, xray done; LEFT SHOULDER PAIN TECHNIQUE: Multiplanar, multisequence MRI of the left shoulder was performed without intravenous contrast administration. COMPARISON: Radiographs dated 12/29/2023 FINDINGS: The examination is degraded due to patient's motion artifact limiting evaluation for subtle findings. There is a type 2 acromion with a small subacromial spur. The coracoacromial and coracoclavicular ligaments are intact. Moderate acromioclavicular joint osteoarthritis. There is small volume offluid with debris in the subacromial subdeltoid bursa as well as subcoracoid bursa due to full-thickness rotator cuff tear as detailed below. There is severe chronic fatty atrophy of the supraspinatus and superior half fibers of the infraspinatus muscle. There is [...] teres minor tendon is intact. There is nonvisualizationof the extra-articular long head biceps tendon in [...] lesions. There is no soft tissue mass orlymphadenopathy. IMPRESSION: 1. Mild left supraspinatus and infraspinatus hypertrophic tendinopathywith superimposed full-thickness tear of the entirety of the supraspinatus tendon as well as anterior and mid fibers of the infraspinatus tendon with retraction of the torn tendon stumps to the levelof the superomedial humeral head and myotendinous junction just medial to the level of the glenoid.Severe chronic fatty atrophy of the supraspinatus and superior half fibers of the infraspinatus muscle 2. Moderate left subscapularis hypertrophic tendinopathy with undersurface tendon fraying as well as partial- thickness undersurface tear of its superior fibers involving greater than 50% of tendonthickness. Mild chronic fatty atrophy subscapularis muscle. 3. [...] Loc Jon M.D. AT T: Report ID: [id number] Reading Location: [id number] XR Chest 1 Vw Portable Result Date: 01/29/2024 EXAM DESCRIPTION: XR CHEST 1 VIEW REASON FOR STUDY: weakness Pt's daughter adds pt hasn't been feeling well for a couple weeks and has been having n/v and last night vomited coffee ground emesis. TECHNIQUE: Frontal radiographic view(s) of the chest. COMPARISON: 12/19/2023 FINDINGS: LUNGS: Mild pulmonary vascular congestion and mild bibasilar atelectasis. No focal opacity, pleural effusion, or pneumothorax. HEART/MEDIASTINUM: Cardiac silhouette is at the upper limits of normal in size. Mediastinal and hilar contours appear normal. LINES/TUBES: Right internal jugular central venous catheter with tip overlying the superior cavoatrial junction. BONES: No acute osseous abnormality. IMPRESSION: 1.Mild pulmonary vascular congestion and mild bibasilar atelectasis. THIS IS AN ELECTRONICALLY VERIFIED FINAL REPORT 01/29/2024 7:20 PM - Electronically signed by Loc Jon M.D. AT: AT Report ID: [id number] Reading Location: [id number] Recent Labs: Recent Labs Lab Units 02/01/24 1205 01/31/24 0737 01/30/24 0834 WBC K/cumm 7.9 7.3 9.4 HEMOGLOBIN g/dL 10.1* 8.5* 9.6* HEMATOCRIT % 30.6* 25.8* 28.5* PLATELETS K/cumm 269 241 237 Recent Labs Lab Units 02/01/24 1205 01/31/24 0737 01/30/24 0834 01/29/241951 WBC K/cumm 7.9 7.3 9.4 9.0 HEMOGLOBIN g/dL 10.1* 8.5* 9.6* 7.4* HEMATOCRIT % 30.6* 25.8* 28.5* 22.9* PLATELETS K/cumm 269 241 237 322 NEUTROS PCT % 65.8 55.0 -- 60.7 LYMPHS PCT % 24.5 32.7 -- 28.3 MONOS PCT % 6.2 7.9 -- 8.2 EOS PCT % 2.7 3.8 -- 2.3 Recent Labs Lab Units 02/01/24 1212 01/31/2483901/31/2473601/30/2483401/30/24 0834 01/29/24 1836 SODIUM mmol/L -- -- 136 -- 140 137 POTASSIUM PLASMA mmol/L -- -- 4.0 -- 4.1 4.0 CHLORIDE mmol/L -- -- 98 -- 101 96* CO2 mmol/L -- -- 27 BUN SERUM mg/dL -- -- 19 -- 36* 32* CREATININE mg/dL -- -- 3.00* -- 3.30* 3.10* NDG-BKU-OXOGMID mL/min/1.73 m2 -- -- 16* -- 14* 15* GLUCOSE mg/dL -- -- 79 -- 111 172 POC GLUCOSE MONITOR mg/dL 100 < > -- < > -- -- CALCIUM mg/dL -- -- 8.3* -- 8.8 9.1 ALBUMIN g/dL -- -- 3.3* -- 3.6 4.0 < > = values in this interval not displayed. Recent Labs Lab Units 02/01/24 1212 02/01/2472401/31/24195301/31/2483901/31/2473601/30/24 0835 01/30/24 0834 01/29/24 1836 SODIUM mmol/L -- -- -- -- 136 -- 140 137 POTASSIUM PLASMA mmol/L -- -- -- -- 4.0 -- 4.1 4.0 CHLORIDE mmol/L -- -- -- -- 98 -- 101 96* CO2 mmol/L -- -- -- -- 27 ANIONGAP mmol/L -- -- -- -- 12 -- 15 14 GLUCOSE mg/dL -- -- -- -- 79 -- 111 172 POC GLUCOSE MONITOR mg/dL 100 83 108 < > -- < > -- -- BUN SERUM mg/dL -- -- -- -- 19 -- 36* 32* CREATININE mg/dL -- -- -- -- 3.00* -- 3.30* 3.10* CALCIUM mg/dL -- -- -- -- 8.3* -- 8.8 9.1 ALBUMIN g/dL -- -- -- -- 3.3* -- 3.6 4.0 ALK PHOS Units/L -- -- -- -- 76 -- 107 124 ALT Units/L -- -- -- -- 10 -- 14 15 AST Units/L -- -- -- -- 9* -- 12 15 BILIRUBIN TOTAL mg/dL -- -- -- -- 0.2 -- 0.5 <0.2 < > = values in this interval not displayed. Recent Labs Lab Units 01/31/24 0737 01/30/24 0834 01/29/24 1836 ALK PHOS Units/L 76 107 124 BILIRUBIN TOTAL mg/dL 0.2 0.5 <0.2 TOTAL PROTEIN g/dL 6.0* 6.8 7.5 ALT Units/L 10 14 15 AST Units/L 9* 12 15 Recent Labs Lab Units 01/29/241951 PROTIME (PT) sec 12.6 INR 0.9 APTT sec 27 Lab Results Component Value Date GLUCOSE 100 02/01/2024 GLUCOSE 83 02/01/2024 GLUCOSE 108 01/31/2024 Implant: Implants Type Not Specified [employer] Duramax Vascpak Safesheath D-Pro 15.5fr 24cm Kit Catheter [id number] - [id number] - Implanted Inventory item: [employer] Duramax Vascpak Safesheath D-pro 15.5fr 24cm Kit Catheter [id number] Model/Cat number: [id number] Buckle Stringer: [employer] Lot number: [id number] As of 10/15/2023 Status: Implanted General Precautions (If Blank, None Found): Isolation Status: Contact Nutritional Status and in-house recommendations: Dietary Orders (From admission, onward) Start Ordered 02/01/24 1028 Adult Diet Restricted; Diabetic; Yes, patient is receiving insulin; Renal Dialysis; 80 Grams (Pro); 1 Gram (Phos); 2 Grams (K+); 2 Grams (Na); No Red Food Dye Diet effective now Question Answer Comment (MHB/MHE) Diet type Restricted Diabetic: Diabetic Patient receiving insulin: Yes, patient is receiving insulin Renal: Renal Dialysis Protein: 80 Grams (Pro) Phosphorus: 1 Gram (Phos) Potassium: 2 Grams (K+) Sodium: 2 Grams (Na) Other Restriction(s): No Red Food Dye 02/01/24 1027 01/30/24 2100 Bedtime snack At bedtime Comments: If bedtime BG is less than 100mg/dl, give patient a 15 gram carbohydrate snack. 01/30/24 0250 Anticoagulation Indication: INR: 01/29/2024: 0.9 Warfarin Administrations (last 168 hours) None Oxygen Status: O2 Therapy for the past 12 hrs: O2 Therapy 02/01/24 1510 None (Room air) 02/01/24 1257 None (Room air) 02/01/24 0730 None (Room air) 02/01/24 0422 None (Room air) Wound Care Instructions Other Instructions Special Instructions For stomach bleed, please take Protonix and Carafate as prescribed. Avoid spicy food, caffeine, alcohol, chocolate, citrus, yvette and other foods that can cause worsening in stomach inflammation andulceration. Avoid foods with red dye. Avoid NSAIDs such as ibuprofen/Advil. Special Instructions Please follow up with primary care physician commercial underwriter and previously scheduled specialty appointments Active LDAs (If Blank, None Found): Peripheral IV 01/29/24 20 G Anterior;Proximal;Right Forearm (Active) Placement Date/Time: 01/29/241948 Type: Angiocath Length of Catheter: 1.88 in Size (Gauge): 20 G Location Orientation: Anterior;Proximal;Right Location: Forearm Site Prep: Chlorhexidine Comfort Measures: Distraction;Position of comfort Techn... Peripheral IV 01/29/24 20 G Left;Posterior Wrist (Active) Placement Date/Time: 01/29/242351 Size (Gauge): 20 G Location Orientation: Left;Posterior Location: Wrist Patient Emergency Contact: Primary Emergency Contact: Mina Gayle, Bandar Immunization Status at Discharge Immunization History Administered Date(s) Administered Influenza Nasal, Unspecified 04/17/2017 Influenza, Quadrivalent, High Dose, Preservative Free, Intrr 04/02/2020, 03/07/2021, 04/01/2022, 08/07/2022 Influenza, Trivalent, Adjuvanted, Intramuscular 04/06/2019 Influenza, Trivalent, IM (MDV) 04/17/2017 PPD TEST 10/22/2023 Pfizer SARS-CoV-2 Monovalent Vaccination (12+ Yrs) PURPLE 09/22/2020, 10/13/2020, 06/11/2021 Pneumococcal Conjugate PCV 13 03/31/2017 Pneumococcal Polysaccharide PPV23 01/20/2019 Michoacano Gibson MD documented in this encounter Discharge Instructions * Attachments The following attachments cannot be sent through Care Everywhere. * Gastrointestinal Bleeding (Discharge Care) (Tristanian) * Gastritis (Discharge Care) (Tristanian) * End Stage Kidney Disease (Discharge Care) (Tristanian) * Type 2 Diabetes Management for Adults (Discharge Care) (Tristanian) * Benztropine Mesylate (By mouth) (Tristanian) * Hydralazine (By mouth) (Tristanian) * Pantoprazole (By mouth) (Tristanian) * Sucralfate (By mouth) (Tristanian) documented in this encounter Medications at Time [...] as needed for rhinitis FreeStyle Madhav 3 [place] misc Use Madhav 3 reader to scan [...] mouth daily 12/28/2023 04/12/20 24 benztropine (COGENTIN) 2 mg tablet Take 1 tablet (2 mg total) by mouth daily 30 tablet 02/01/2024 04/18/20 calcium acetate,phosphat bind, (PHOSLO) 667 mg capsule TAKE 1 CAPSULE(667 MG) BY MOUTH THREE TIMES DAILY WITH MEALS 270 capsule 10/29/2023 04/06/20 24 carvediloL (COREG) 3.125 mg tablet Take 1 tablet (3.125 mg total) by mouth 2 (two) times a day with meals 180 tablet 3 12/18/2023 02/11/20 FeroSuL 325 mg (65 mg iron) tablet [...] 03/07/20 24 documented as of this encounter Ordered Prescriptions Prescription Sig Dispense Quantity Refills Last Filled Start Date End Date hydrALAZINE (APRESOLINE) 25 mg tabletIndications: hypertension Take 1 tablet (25 mg total) by mouth 2 (two) times a day 60 tablet 1 02/01/2024 benztropine (COGENTIN) 2 mg tablet Take 1 tablet (2 mg total) by mouth daily 30 tablet 02/01/2024 4 sucralfate (CARAFATE) suspension 1 gram/10 mL Take 10 mL (1 g total) by mouth 4 (four) times a day (with meals and nightly) 1200 mL 1 02/01/[address] (PROTONIX) 40 mg EC tabletIndications: GI Bleed Take 1 tablet (40 mg total) by mouth 2 (two) times a day 60 tablet 1 02/01/2024 4 risperiDONE (RisperDAL) 2 mg tablet Take 1 tablet (2 mg total) by mouth nightly 30 tablet 02/01/2024 4 documented in this encounter Discharge Disposition Disposition Code Departure Means Destination Discharge to home or self care documented in this encounter Progress Notes * Markie Ryan MD - 02/01/2024 11:27 AM CDT Sixto Chakraborty is a 73 y.o. female patient. Reason for Follow Up: ESRD on HD Subjective: Sitting up in chair feels well denies any abdominal pain Current Facility-Administered Medications Medication Dose Route Frequency Provider Last Rate Last Admin acetaminophen (TYLENOL) tablet 650 mg 650 mg oral TID Herve Tavera MD 650 mg at 02/01/24901 atorvastatin (LIPITOR) tablet 40 mg 40 mg oral Nightly Herve Tavera MD 40 mg at 01/31/242103 benztropine (COGENTIN) tablet 2 mg 2 mg oral Daily Herve Tavera MD 2 mg at 02/01/24901 Carrier Fluids for Secondary Infusion - 0.9% Sodium Chloride 30 mL intravenous PRN Herve Tavera MD carvediloL (COREG) tablet 3.125 mg 3.125 mg oral BID with meals (bkfst, dinner) Herve Tavera MD 3.125 mg at 02/01/24 09 [START ON 02/06/2024] darbepoetin isaiah (ARANESP) injection 100 mcg 100 mcg intravenous Weekly - Janis Kelly MD dextrose (GLUTOSE) 40 % gel 15 g 15 g oral Q15 Min PRN Herve Tavera MD Or dextrose (D10W) 10% bolus 250 mL 250 mL intravenous Q15 Min PRN Herve Tavera MD ferrous sulfate tablet 325 mg 325 mg oral Daily with breakfast Herve Tavera MD 325 mgat 02/01/24901 gabapentin (NEURONTIN) capsule 100 mg 100 mg oral Once per day on Thursday Herve Tavera MD 100 mg at 01/30/24 1756 glucagon injection 1 mg 1 mg intramuscular Q30 Min PRN Herve Tavera MD hydrALAZINE (APRESOLINE) tablet 25 mg 25 mg oral BID Michoacano Gibson MD 25 mg at 02/01/24 0902 HYDROcodone-acetaminophen (NORCO) 5-325 mg per tablet 1 tablet 1 tablet oral Q4H PRN Michoacano Gibson MD 1 tablet at 01/31/24 1646 insulin glargine (LANTUS, SEMGLEE) 100 unit/mL injection 10 Units 0.15 Units/kg subcutaneous Nightly Herve Tavera MD 10 Units at 01/31/24 2103 insulin lispro (HumaLOG, ADMELOG) 100 unit/mL injection 0-4 Units 0-4 Units subcutaneous Nightly Herve Tavera MD insulin lispro (HumaLOG, ADMELOG) 100 unit/mL injection 0-5 Units 0-5 Units subcutaneous TID with meals Herve Tavera MD 1 Units at 01/30/24 1755 methocarbamoL (ROBAXIN) tablet 750 mg 750 mg oral TID Herve Tavera MD 750 mg at 02/01/24 0902 NIFEdipine (PROCARDIA XL/ADALAT CC) extended release tablet 60 mg 60 mg oral Daily Herve Tavera MD 60 mg at 02/01/24 0901 ondansetron ODT (ZOFRAN-ODT) disintegrating tablet 4 mg 4 mg oral Q6H PRN Herve Tavera MD Or ondansetron (ZOFRAN) injection 4 mg 4 mg intravenous Q6H PRN Herve Tavera MD pantoprazole DR (PROTONIX) extended release tablet 40 mg 40 mg oral BID Michoacano Gibson MD 40 mg at 02/01/24 0901 polyethylene glycol (MIRALAX) packet 17 g 17 g oral Daily PRN Herev Tavera MD ramelteon (ROZEREM) tablet 8 mg 8 mg oral Nightly PRN Herve Tavera MD risperiDONE (RisperDAL) tablet 2 mg 2 mg oral Nightly Herve Tavera MD 2 mg at 01/31/24 210 sodium chloride 0.9% flush 0.5-20 mL 0.5-20 mL intra-catheter Q8H SOL Herve Tavera MD10 mL at 01/31/24 210 sodium chloride 0.9% flush 0.5-20 mL 0.5-20 mL intra-catheter PRN Herve Tavera MD sodium chloride 0.9% infusion 30 mL/hr intravenous Continuous Malcolm Duvall MD Stopped at 01/31/24 1400 sucralfate (CARAFATE) 100 mg/mL oral suspension 1 g 1 g oral QID (with meals & nightly) Michoacano Gibson MD 1 g at 02/01/24 0901 traMADoL (ULTRAM) tablet 25 mg 25 mg oral Q8H PRN Herve Tavera MD 25 mg at 01/31/24 1030 No Known Allergies Principal Problem: Upper GI bleeding Active Problems: Coffee ground emesis Social History Tobacco Use Smoking status: Never Passive exposure: Never Smokeless tobacco: Never Substance and Sexual Activity Drug use: Never Sexual activity: Not Currently Partners: Male Alcohol Use: Not At Risk (01/30/2024) AUDIT-C Frequency of Alcohol Consumption: Never Average Number of Drinks: Patient does not drink Frequency of Binge Drinking: Never Objective: BP 128/63 (BP Location: Left arm, Patient Position: Lying) Pulse 79 Temp 37 ??C (98.6 ??F) (Oral) Resp 18 Ht 157.5 cm (5' 2 ) Wt 61.3 kg (135 lb 2.3 oz) SpO2 95% BMI 24.72 kg/m?? Physical Exam: -GENERAL: No acute distress, breathing comfortably on room air. -EYES: Extraocular movements intact -CVS: Regular rate rhythm, S1 and S2 normal -ABDOMEN: Soft, nondistended, Nontender -Musculoskeletal / EXT: no lower Ext edema. -NEURO: Alert, awake, oriented x1, No gross neuro deficit LABs Recent Labs Lab Units 02/01/24 0725 01/31/24195301/31/24 1713 01/31/24 1344 01/31/24 1125 01/31/24 0840 01/31/24 0737 01/30/24 0835 01/30/24 0834 01/29/24 1836 SODIUM mmol/L -- -- -- -- -- -- 136 -- 140 137 POTASSIUM PLASMA mmol/L -- -- -- -- -- -- 4.0 -- 4.1 4.0 CHLORIDE mmol/L -- -- -- -- -- -- 98 -- 101 96* CO2 mmol/L -- -- -- -- -- -- 26 -- 24 27 BUN SERUM mg/dL -- -- -- -- -- -- 19 -- 36* 32* CREATININE mg/dL -- -- -- -- -- -- 3.00* -- 3.30* 3.10* GLUCOSE mg/dL -- -- -- -- -- -- 79 -- 111 172 POC GLUCOSE MONITOR mg/dL 83 108 105 100 96 98 -- < > -- -- CALCIUM mg/dL -- -- -- -- -- -- 8.3* -- 8.8 9.1 < > = values in this interval not displayed. Recent Labs Lab Units 01/31/2473601/30/24 0834 01/29/241951 WBC K/cumm 7.3 9.4 9.0 RBC M/cumm 2.76* 3.05* 2.34* HEMOGLOBIN g/dL 8.5* 9.6* 7.4* HEMATOCRIT % 25.8* 28.5* 22.9* MCV fL 93.5 93.4 97.9* MCH pg 30.8 31.5 31.6 MCHC g/dL 32.9 33.7 32.3 MPV fL 10.1 10.0 10.0 Assessment/Plan: Mrs. Chakraborty a 73 y.o female with hx of ESRD on chronic HD TTS, DM, HTN, CHF, dementia, anemia, -she presented to ED with a week of black stool, a day of vomiting / coffee ground emesis, a month of left shoulder pain ---ESRD on chronic HD TTS. S/p Hd yesterday with 2.75L UF. Plan for HD next on Thursday per her schedule. CXR showed mild Pulmonary vascular congestion. ---GI Sx of black stool, coffee ground emesis. Hg improved. GI on board with plan for EGD ---Anemia with possible GI bleed.; s/p blood Tx. On GARFIELD. Plan for EGD per above ---renal osteo; on phoslo with meals for hyperphosphatemia; restart when restarting diet ---Hypertension; on home nifedipine, hydralazine, coreg 01/31 Feels well today, status post endoscopy. No labs drawn today will repeat in a.m. if remains hospitalized. Plan for hemodialysis here tomorrow as well if not discharged Markie Ryan MD 02/01/2024 * Amanda Hodges, CRYPTOGRAPHER - 02/01/2024 9:02 AM CDT Physical Therapy 02/01/24 0902 PT Last Visit Session Type Treatment Safe Environment Arm band checked;Patient found sitting at edge of bed;Gait belt utilized for all out of bed mobility Subjective Agreeable to Therapy Family/Caregiver Present (Pt's nurse was just leaving.) Precautions Precautions Bed/Chair Alarm;Fall risk Precaution Comments tele Pain Assessment Pain Assessment No/denies pain Cognition Arousal/Alertness Alert Orientation Oriented X4 (person, place, time, situation) Exercises Straight Leg Raise 10 Quad Sets 10 Heelslides 10 Glute Sets 10 Ankle Pumps 10 Supine Supine-Exercises Bilateral;Lower extremity Reps/Sets 10/1 Supine-Motion AROM Supine-Exercise Comments Pt able to perform actively but requires many v/c's for correct technique. Bed Mobility Bed Mobility No Transfers Transfer Yes Transfer 1 Transfer From 1 Sit Transfer Type 1 To and from Transfer to 1 Stand Technique 1 Sit to stand;Stand to sit Transfer Device 1 Wheeled walker Transfer Level of Assistance 1 Standby Assist Trials/Comments 1 Pt did well, no ass't given, she did however require v/c's for proper hand placement Transfers 2 Transfer From 2 Stand Transfer Type 2 To and from Transfer to 2 Toilet Technique 2 Stand to sit;Sit to stand Transfer Device 2 Wheeled walker;Other (comments) (also used the rail on wall, next to toilet) Transfer Level of Assistance 2 Standby Assist Trials/Comments 2 did well, no LOB, able to perform pericare indep. Ambulation Ambulation Yes Ambulation 1 Distance (ft) 1 1x10ft & 1x25ft Surface 1 Level tile Device 1 Wheeled walker Assistance 1 Contact Guard Assist Gait: Requires verbal cues to 1 Improve upright posture;Increase step length;Pace activity Gait Deviations 1 Step length - decreased Quality of Gait 1 good Ambulation Comments 1 No LOB, SOB or dizziness noted. Safe Environment End of Therapy Session Safe Environment End of Therapy Session Patient left in recliner;Chair alarm in place and activated;Call light within reach;Overbed table within reach Recommendation/Plan PT Recommendation/Plan (S) Home with family;Home with caregiver;Home Health PT PT Equipment Recommended (S) None Time Calculation Start Time 0902 Stop Time 0925 Time Calculation (min) 23 min Multi-Disciplinary Problems (from Physical Therapy) Active Problems Problem: PT Misc Start Date: 01/31/24 Goal Start Date Expected End Date End Date PT LTG - Misc 1 01/31/24 02/14/24 -- Goal Details: Pt will ambulate 150 ft with ww and SBA.-progressing Goal Start Date Expected End Date End Date PT LTG - Misc 2 01/31/24 02/14/24 -- Goal Details: Pt will perform bed<>chair transfer with ww, SBA, and no cues for proper hand placement.-progressing Goal Start Date Expected End Date End Date PT LTG - Misc 3 01/31/24 02/14/24 -- Goal Details: Pt will perform BLE AA/AROM exercises x 10 reps until minimal cues required.-progressing. Supervisor Finishing Services Utilized: NO Educated the patient to the role of physical therapy, plan of care, goals of therapy, rationale forprogressing mobility Patient was left with all needs met and equipment intact. Mobility and ADL status posted at bedsideand within medical record. * Malcolm Duvall MD - 01/31/2024 1:46 PM CDT GI note EGD completed - Findings: The Z-line was irregular. Inflammation characterized by erosions, erythema and friability was found in the entire examined stomach. Biopsies were taken with a cold forceps for Helicobacter pylori testing from the antrum and body. One biopsy site in the body was oozing but stopped without intervention. The examined duodenum was normal. Impression: - Z-line irregular. - Gastritis. Biopsied to rule out H pylori. Also considering gastritis secondary to iron pills. - Normal examined duodenum. Recommendation: - Return patient to the hospital bell for ongoing care. - Continue to monitor for signs of GI bleeding and trend hemoglobin. Transfuse for hemoglobin less than 7-8. - Treat with pantoprazole 40 mg PO BID for 8 weeks. - Start carafate 1 gram slurry PO QID for 8 weeks. - Follow up with outpatient GI and repeat EGD in 8 weeks to check healing. - Follow up pathology. - Clear liquid diet without red dye. Recommendations communicated to the primary Hospitalist. * Janis Hanson MD - 01/31/2024 1:29 PM CDT Sixto Chakraborty is a 73 y.o. female patient. Reason for Follow Up: ESRD on HD Subjective: Mrs. Chakraborty is feeling alright. She had dialysis yesterday. Plan for EGD today No fever, CP, SOB, nausea or vomiting. She has left arm / shoulder pain Daughter at bedside Current Facility-Administered Medications Medication Dose Route Frequency Provider Last Rate Last Admin [Transfer Hold] acetaminophen (TYLENOL) tablet 650 mg 650 mg oral TID Herve Tavera MD650 mg at 01/31/24 0858 [Transfer Hold] atorvastatin (LIPITOR) tablet 40 mg 40 mg oral Nightly Herve Tavera MD 40 mg at 01/30/24 2151 [Transfer Hold] benztropine (COGENTIN) tablet 2 mg 2 mg oral Daily Herve Tavera MD 2 mg at 01/31/24 0902 [Transfer Hold] Carrier Fluids for Secondary Infusion - 0.9% Sodium Chloride 30 mL intravenous PRN Herve Tavera MD [Transfer Hold] carvediloL (COREG) tablet 3.125 mg 3.125 mg oral BID with meals (bkfst, dinner) Herve Tavera MD 3.125 mg at 01/31/24902 [Transfer Hold] darbepoetin isaiah (ARANESP) injection 100 mcg 100 mcg intravenous Weekly - 2100 Janis Hanson MD [Transfer Hold] dextrose (GLUTOSE) 40 % gel 15 g 15 g oral Q15 Min PRN Herve Tavera MD Or [Transfer Hold] dextrose (D10W) 10% bolus 250 mL 250 mL intravenous Q15 Min PRN Herve Tavera MD [Transfer Hold] ferrous sulfate tablet 325 mg 325 mg oral Daily with breakfast Herve Tavera MD 325 mg at 01/31/24902 [Transfer Hold] gabapentin (NEURONTIN) capsule 100 mg 100 mg oral Once per day on Thursday Herve Tavera MD 100 mg at 01/30/241755 [Transfer Hold] glucagon injection 1 mg 1 mg intramuscular Q30 Min PRN Herve Tavera MD [Transfer Hold] hydrALAZINE (APRESOLINE) tablet 25 mg 25 mg oral BID TelemaqMichoacano amador MD [Transfer Hold] insulin glargine (LANTUS, SEMGLEE) 100 unit/mL injection 10 Units 0.15 Units/kg subcutaneous Nightly Herve Tavera MD 10 Units at 01/30/242146 [Transfer Hold] insulin lispro (HumaLOG, ADMELOG) 100 unit/mL injection 0-4 Units 0-4 Units subcutaneous Nightly Herve Tavera MD [Transfer Hold] insulin lispro (HumaLOG, ADMELOG) 100 unit/mL injection 0-5 Units 0-5 Units subcutaneous TID with meals Herve Tavera MD 1 Units at 01/30/24 175 [Transfer Hold] methocarbamoL (ROBAXIN) tablet 750 mg 750 mg oral TID Herve Tavera MD750 mg at 08/11/24 0903 [Transfer Hold] NIFEdipine (PROCARDIA XL/ADALAT CC) extended release tablet 60 mg 60 mg oral Daily Herve Tavera MD 60 mg at 01/31/24 0904 [Transfer Hold] ondansetron ODT (ZOFRAN-ODT) disintegrating tablet 4 mg 4 mg oral Q6H PRN Herve Tavera MD Or [Transfer Hold] ondansetron (ZOFRAN) injection 4 mg 4 mg intravenous Q6H PRN Herve Tavera MD [Transfer Hold] pantoprazole (PROTONIX) 40 mg in sodium chloride 0.9% 10 mL IV Syringe 40 mg intravenous BID DiogenesaqMichoacano amador MD 40 mg at 01/31/24 09 [Transfer Hold] polyethylene glycol (MIRALAX) packet 17 g 17 g oral Daily PRN Herve Tavera MD [Transfer Hold] ramelteon (ROZEREM) tablet 8 mg 8 mg oral Nightly PRN Herve Tavera MD [Transfer Hold] risperiDONE (RisperDAL) tablet 2 mg 2 mg oral Nightly Herve Tavera MD2 mg at 01/30/24 2151 simethicone (MYLICON) 66.7 mg/mL oral drops PRN Malcolm Duvall MD 40 mg at 01/31/24 1326 [Transfer Hold] sodium chloride 0.9% flush 0.5-20 mL 0.5-20 mL intra-catheter Q8H Herve Castro MD 10 mL at 01/31/24 0522 [Transfer Hold] sodium chloride 0.9% flush 0.5-20 mL 0.5-20 mL intra-catheter PRN Herve Tavera MD [Transfer Hold] sodium chloride 0.9% flush 0.5-20 mL 0.5-20 mL intra-catheter Q8H Malcolm Mcrae MD [Transfer Hold] sodium chloride 0.9% flush 0.5-20 mL 0.5-20 mL intra-catheter PRN Malcolm Duvall MD sodium chloride 0.9% infusion 30 mL/hr intravenous Continuous Malcolm Duvall MD 30 mL/hr at 01/31/24 1310 30 mL/hr at 01/31/24 1310 [Transfer Hold] traMADoL (ULTRAM) tablet 25 mg 25 mg oral Q8H PRN Herve Tavera MD 25 mg at 01/31/24 1030 Facility-Administered Medications Ordered in Other Encounters Medication Dose Route Frequency Provider Last Rate Last Admin propofoL (DIPRIVAN) 10 mg/mL IV intravenous PRN Alvarado Ng MD 20 mg at 01/31/24 1321 sodium chloride 0.9% infusion intravenous Continuous PRN Alvarado Ng MD New Bag at 01/31/24 1307 No Known Allergies Principal Problem: Upper GI bleeding Active Problems: Coffee ground emesis Social History Tobacco Use Smoking status: Never Passive exposure: Never Smokeless tobacco: Never Substance and Sexual Activity Drug use: Never Sexual activity: Not Currently Partners: Male Alcohol Use: Not At Risk (01/30/2024) AUDIT-C Frequency of Alcohol Consumption: Never Average Number of Drinks: Patient does not drink Frequency of Binge Drinking: Never Objective: BP 162/68 Pulse 77 Temp 37 ??C (98.6 ??F) Resp 18 Ht 157.5 cm (5' 2 ) Wt 61.3 kg (135 lb 2.3 oz) SpO2 99% BMI 24.72 kg/m?? Physical Exam: -GENERAL: No acute distress, breathing comfortably on room air. -EYES: Extraocular movements intact -CVS: Regular rate rhythm, S1 and S2 normal -ABDOMEN: Soft, nondistended, Nontender -Musculoskeletal / EXT: no lower Ext edema. -NEURO: Alert, awake, oriented x3, No gross neuro deficit LABs Recent Labs Lab Units 01/31/24 1125 01/31/24 0840 01/31/24 0737 01/30/24 2212 01/30/24 2050 01/30/24 1649 01/30/24 0835 01/30/24 0834 01/29/24 1836 SODIUM mmol/L -- -- 136 -- -- -- -- 140 137 POTASSIUM PLASMA mmol/L -- -- 4.0 -- -- -- -- 4.1 4.0 CHLORIDE mmol/L -- -- 98 -- -- -- -- 101 96* CO2 mmol/L -- -- 26 -- -- -- -- 24 27 BUN SERUM mg/dL -- -- 19 -- -- -- -- 36* 32* CREATININE mg/dL -- -- 3.00* -- -- -- -- 3.30* 3.10* GLUCOSE mg/dL -- -- 79 -- -- -- -- 111 172 POC GLUCOSE MONITOR mg/dL 96 98 -- 185 226* 156 < > -- -- CALCIUM mg/dL -- -- 8.3* -- -- -- -- 8.8 9.1 < > = values in this interval not displayed. Recent Labs Lab Units 01/31/24 0737 01/30/24 0834 01/29/241951 WBC K/cumm 7.3 9.4 9.0 RBC M/cumm 2.76* 3.05* 2.34* HEMOGLOBIN g/dL 8.5* 9.6* 7.4* HEMATOCRIT % 25.8* 28.5* 22.9* MCV fL 93.5 93.4 97.9* MCH pg 30.8 31.5 31.6 MCHC g/dL 32.9 33.7 32.3 MPV fL 10.1 10.0 10.0 Assessment/Plan: Mrs. Chakraborty a 73 y.o female with hx of ESRD on chronic HD TTS, DM, HTN, CHF, dementia, anemia, -she presented to ED with a week of black stool, a day of vomiting / coffee ground emesis, a month of left shoulder pain ---ESRD on chronic HD TTS. S/p Hd yesterday with 2.75L UF. Plan for HD next on Thursday per her schedule. CXR showed mild Pulmonary vascular congestion. ---GI Sx of black stool, coffee ground emesis. Hg improved. GI on board with plan for EGD ---Anemia with possible GI bleed.; s/p blood Tx. On GARFIELD. Plan for EGD per above ---renal osteo; on phoslo with meals for hyperphosphatemia; restart when restarting diet ---Hypertension; on home nifedipine, hydralazine, coreg Janis Hanson MD 01/31/2024 * Anabel Moreno, PT - 01/31/2024 8:38 AM CDT Physical Therapy 01/31/24 0838 General Chart Reviewed Yes Session Type Evaluation PT Received On 01/31/24 Safe Environment Arm band checked;Patient found in supine;Gait belt utilized for all out of bed mobility Subjective Agreeable to Therapy Additional Pertinent History Pt admitted for anemia, upper GI bleed, ESRD on dialysis, HTN, L RTC tear. PMH: DM, HTN, GERD, schizoaffective disorder, alzheimers, CHF Family/Caregiver Present No Physical Therapy-Patient Goal D/C home Precautions Precautions Bed/Chair Alarm;Fall risk Precaution Comments tele Home Living Type of Home Apartment Home Layout One level Home Access Level entry Home Mobility Equipment-Available Single point cane;4-Wheeled walker Home Mobility Equipment-Currently Using 4-Wheeled walker Prior Function Level of Pass Christian Needs assistance with ADLs;Independent with ambulation;Independent functionaltransfers;Needs assistance with homemaking Lives With Daughter Receives Help From Family Driving No Mode of Transportation Driven by others Fall within the last 6 months No Prior Function Comments Pt reports her daughter manages her medicine, does the cooking/cleaning/laundry, and assists with ADLs. Pain Assessment Pain Assessment Lo-Infante FACES Lo-Infante FACES Pain Rating 6 (0 while supine in bed, 6/10 up in chair; pillow under LUE for positioning and comfort) Pain Location Shoulder Pain Orientation Left Pain Interventions Pillow Cognition Orientation Oriented to person;Oriented to place;Oriented to situation (able to state month, but year reported as 2002; reports at hospital although unable to state name) Bed Mobility 1 Bed Mobility From 1 Supine Bed Mobility Type 1 To Bed Mobility to 1 Edge of bed Level of Assistance 1 Minimum Assist Bed Mobility Comments 1 Assist needed for upright sitting due to L shoulder pain. Pt able to lift BLE off bed in supine simultaneously and hold for 5 seconds. Pt able to scoot hips to EOB and maintain sitting EOB without assist. Transfers Transfer Yes Transfer 1 Transfer From 1 Sit Transfer Type 1 To and from Transfer to 1 Stand Technique 1 Sit to stand;Stand to sit Transfer Device 1 Wheeled walker Transfer Level of Assistance 1 Contact Guard Assist Trials/Comments 1 Pt able to maintain standing balance without assist. Cues for proper hand placement and safety/sequencing. Transfers 2 Transfer From 2 Bed Transfer Type 2 To Transfer to 2 Chair with arms (recliner) Technique 2 Ambulation Transfer Device 2 Wheeled walker Transfer Level of Assistance 2 Contact Guard Assist Ambulation 1 Distance (ft) 1 20 Surface 1 Level tile Device 1 Wheeled walker Assistance 1 Contact Guard Assist Gait: Requires assist with 1 Maintaining balance Gait: Requires verbal cues to 1 Pace activity;Improve upright posture;Increase step length Gait Deviations 1 Brigid - decreased;Posture - flexed;Step length - decreased Ambulation Comments 1 No LOB noted with ambulation. PT Treatment/Exercise Comments PT Treatment/Exercise Comments BLE strength grossly 4+/5 Safe Environment End of Therapy Session Safe Environment End of Therapy Session Patient left in recliner;Chair alarm in place and activated;RN notified;Call light within reach;Overbed table within reach;Bed in lowest position with wheels locked Assessment Prognosis Good Problem List Gait deviations;Decreased strength;Decreased endurance;Impaired balance;Decreased mobility Barriers to Discharge Current Mobility Status Plan Plan Plan of care initiated Recommendation/Plan PT Recommendation/Plan (S) Home with family;Home with caregiver;Home Health PT Patient at high risk for Falls;Readmission;Injury due to decreased ability to care for self;Injury due to reduced functional status;Injury at home as patient has not returned to prior level of function PT Frequency during current admission 5-7x/wk Treatment/Interventions during current admission Balance Training;Bed mobility;Endurance training;Functional activity;Functional transfer training;Gait training;Strengthening;Therapeutic activity;Therapeutic exercise;Transfer training;Range of motion PT Equipment Recommended None PT - Next Appointment 02/14/24 PT Evaluation Complete Yes Time Calculation Start Time 0838 Stop Time 0854 Time Calculation (min) 16 min Multi-Disciplinary Problems (from Physical Therapy) Active Problems Problem: PT Misc Start Date: 01/31/24 Goal Start Date Expected End Date End Date PT LTG - Misc 1 01/31/24 02/14/24 -- Goal Details: Pt will ambulate 150 ft with ww and SBA. Goal Start Date Expected End Date End Date PT LTG - Misc 2 01/31/24 02/14/24 -- Goal Details: Pt will perform bed<>chair transfer with ww, SBA, and no cues for proper hand placement. Goal Start Date Expected End Date End Date PT LTG - Misc 3 01/31/24 02/14/24 -- Goal Details: Pt will perform BLE AA/AROM exercises x 10 reps until minimal cues required. Supervisor Finishing Services Utilized: NO Educated the patient to the role of physical therapy, plan of care, goals of therapy, rationale forprogressing mobility. Patient was left with all needs met and equipment intact. Mobility and ADL status posted at bedsideand within medical record. * Michoacano Gibson MD - 01/31/2024 7:26 AM CDT Images from the original note were not included. General Medicine Daily Progress HPI Sixto Chakraborty is a 73 y.o. year old female with history significant for HTN, HLD, DM Type II, dementia, CHF, anemia, GERD, ESRD T/Th/Sat., L rotator cuff tear, and neuropathy presenting to the ED w/c/o L shoulder pain onset about 1x month ago. Reports melena over the last week, coffee-ground emesis. Admitted for GI bleed evaluation. ESRD noted. Elevated troponin no delta likely 2/2 decreased renal clearance in the setting ESRD. Severe acute on chronic Normocytic anemia noted. 1 unit PRBC ordered chest x-ray indicated mild pulmonary vascular congestion and mild bibasilar atelectasis. CTA abdomen and pelvis indicated constipation. No obstruction. No active site of bleeding Overnight patient afebrile intermittently hypertensive which improved throughout the morning. 800 cc urine output over 24 hours. ESRD noted. Hemoglobin stable. GI evaluation recommendations pending. Continue Protonix INTERVAL HISTORY 01/30 Overnight afebrile intermittent hypotension which improved throughout the morning. Maintaining oxygen on air. 1.3 L removed by HD. ESRD noted. Hemoglobin stable 8 - 9. GI planning for endoscopy today. NPO. Continue Protonix. Patient reported left arm pain ordered x-rays of left shoulder arm and forearm. Given pain medications. Patient denied chest pain, SOB. No swelling or erythema noted in arm. OBJECTIVE Vitals: 24hr Min/Max: Temp Min: 35.9 ??C (96.6 ??F) Max: 37.1 ??C (98.8 ??F) Pulse Min: 50 Max: 75 BP Min: 92/43 Max: 152/63 Resp Min: 16 Max: 20 SpO2 Min: 96 % Max: 100 % Most Recent : Vitals: 01/31/24 1122 BP: 147/58 Pulse: 72 Resp: 16 Temp: 36.9 ??C (98.4 ??F) SpO2: 97% I/O last 2 completed shifts: In: 1350 [P.O.:600; I.V.:250; Other:500] Out: 2750 [Other:2750] No intake/output data recorded. O2 Therapy for the past 12 hrs: O2 Therapy 01/31/24 1122 None (Room air) 01/31/24 0838 None (Room air) 01/31/24 0352 None (Room air) Physical Exam: Vitals reviewed Constitutional: NAD, comfortable, in bed Eyes: anicteric, vision grossly intact ENT: MMM Lungs: Normal depth and effort of breathing, on RA Heart: Regular, no murmur, no ankle edema. Right subclavian HD catheter Abd: +BS, Non Tender, Non distended : no indwelling joy catheter Neuro: No new deficits appreciated Musculoskeletal: ROM grossly intact Skin: warm dry Psychiatric: alert, oriented Lab/Current Medication Review: Recent Results (from the past 24 hour(s)) POCT glucose Collection Time: 01/30/24 1:42 PM Result Value Ref Range Glucose, POC 104 70 - 199 mg/dL Glucose comment 1 Use This Result POCT glucose Collection Time: 01/30/24 4:49 PM Result Value Ref Range Glucose, POC 156 70 - 199 mg/dL Glucose comment 1 Use This Result POCT glucose Collection Time: 01/30/24 8:50 PM Result Value Ref Range Glucose, POC 226 (H) 70 - 199 mg/dL Glucose comment 1 Use This Result POCT glucose Collection Time: 01/30/24 10:12 PM Result Value Ref Range Glucose, POC 185 70 - 199 mg/dL Comprehensive metabolic panel Collection Time: 01/31/24 7:37 AM Result Value Ref Range Sodium 136 135 - 145 mmol/L Potassium, pl 4.0 3.3 - 4.9 mmol/L Chloride 98 97 - 110 mmol/L CO2 26 22 - 32 mmol/L Anion gap 12 2 - 15 mmol/L BUN 19 6 - 25 mg/dL Creatinine 3.00 (H) 0.60 - 1.10 mg/dL Glucose 79 70 - 199 mg/dL Calcium 8.3 (L) 8.5 - 10.3 mg/dL Bilirubin, total 0.2 0.1 - 1.2 mg/dL Protein, pl 6.0 (L) 6.5 - 8.5 g/dL Albumin 3.3 (L) 3.5 - 5.0 g/dL Alk phos 76 40 - 130 Units/L ALT 10 7 - 45 Units/L AST 9 (L) 10 - 45 Units/L CBC with auto differential Collection Time: 01/31/24 7:37 AM Result Value Ref Range WBC 7.3 3.8 - 9.9 K/cumm Hgb 8.5 (L) 11.9 - 15.5 g/dL Hct 25.8 (L) 35.6 - 45.5 % Plt 241 150 - 400 K/cumm MPV 10.1 9.1 - 12.3 fL RBC 2.76 (L) 3.90 - 5.20 M/cumm MCV 93.5 81.3 - 96.4 fL MCH 30.8 27.1 - 33.3 pg MCHC 32.9 32.3 - 35.7 g/dL RDW CV 16.8 (H) 11.1 - 14.9 % RDW SD 56.7 (H) 35.7 - 48.1 fL NRBC abs 0.00 0.00 - 0.01 K/cumm Differential, auto Collection Time: 01/31/24 7:37 AM Result Value Ref Range Neutrophil abs 4.0 1.5 - 6.5 K/cumm Imm gran abs 0.0 0.0 - 0.1 K/cumm Lymphocyte abs 2.4 0.8 - 3.3 K/cumm Monocyte abs 0.6 0.2 - 0.8 K/cumm Eosinophil abs 0.3 0.0 - 0.5 K/cumm Basophil abs 0.0 0.0 - 0.1 K/cumm Neutrophil pct 55.0 % Imm gran pct 0.3 % Lymphocyte pct 32.7 % Monocyte pct 7.9 % Eosinophil pct 3.8 % Basophil pct 0.3 % eGFR Collection Time: 01/31/24 7:37 AM Result Value Ref Range eGFR 16 (L) >=60 mL/min/1.73 m2 POCT glucose Collection Time: 01/31/24 8:40 AM Result Value Ref Range Glucose, POC 98 70 - 199 mg/dL Glucose comment 1 Use This Result POCT glucose Collection Time: 01/31/24 11:25 AM Result Value Ref Range Glucose, POC 96 70 - 199 mg/dL CTA Abdomen Pelvis Result Date: 01/30/2024 Narrative: EXAM DESCRIPTION: CTA ABDOMEN PELVIS REASON FOR STUDY: GI bleed Per ER Charge Olivia PT toget dialysis on sat during day prior to 10pm Triage note Pt reports she is having L arm pain for 1-2 weeks. Blew to raise arm but causes pain. States she gets dialysis tues, thurs and sat. Denies injury. Had MRI done today regarding arm. Pt's daughter adds pt hasn't been feeling well for a couple weeks and has been having n/v and last night vomited coffee ground emesis. Md note Chief Complaint Patient presents with Arm Pain Nausea Vomiting HPI HPI Sixto Chakraborty is a 73 y.o. female w/ PMHx including HTN, HLD, DM Type II, dementia, CHF, anemia, GERD, ESRD, L rotator cuff tear, and neuropathy presenting to the ED w/ c/o L shoulder pain onset about 1x month ago. Pt denies any injury and had anMRI done today regarding her arm. Pt states she has been taking Tylenol for pain. Pt also endorses black stools onset 1x week ago and pt's daughter reports an episode of coffee ground emesis last night. Pt also endorses cough and vomiting. Pt denies ABD pain, nausea, heartburn, fever, chills, cold,and any other associated symptoms. Pt reports she gets Dialysis T/Th/Sat TECHNIQUE: CTA scan of theabdomen and pelvis performed without and with intravenous and without oral contrast using helical scanning technique with dynamic intravenous contrast injection. Precontrast, arterial, and portal venous phase images of the abdomen and pelvis were acquired. Images reviewed with lung, soft tissue and bone windows. Reconstructed coronal and sagittal MPR images reviewed. All images stored on PACS. 3DMIP images rendered on scanning unit and reviewed at time of interpretation. Automated exposure control was used as a dose optimization technique for this examination. CONTRAST TYPE/DOSE: 100mL of IOVERSOL 350 MG IODINE/ML INTRAVENOUS SYRINGE injected via intravenous COMPARISON: 12/19/2019 FINDINGS: VASCULATURE: No dissection, aneurysm, intramural hematoma, rupture, or penetrating atheroscleroticulcer. No large vessel occlusion. CELIAC TRUNK: No flow limiting stenosis, dissection, or aneurysm.SUPERIOR MESENTERIC ARTERY: No flow limiting stenosis, dissection, or aneurysm. RIGHT RENAL ARTERY:No flow limiting stenosis, dissection, or aneurysm. LEFT RENAL ARTERY: No flow limiting stenosis, dissection, or aneurysm. INFERIOR MESENTERIC ARTERY: No flow limiting stenosis, dissection, or aneurysm. AORTA: No flow limiting stenosis, dissection, or aneurysm. Minor atherosclerotic calcification is noted. ILIAC ARTERIES: No flow limiting stenosis, dissection, or aneurysm. LOWER CHEST: No significant pulmonary abnormalities. No effusion. LIVER: Normal size. No identified cystic or solid masses.GALLBLADDER: Unremarkable BILE DUCTS: No intrahepatic or extrahepatic ductal dilatation. SPLEEN: Normal size. No focal lesions. PANCREAS: No identified cystic or solid masses. No significant calcifications. No adjacent inflammation or peripancreatic fluid collections. Pancreatic duct not dilated. ADRENALS: Normal. KIDNEYS/URINARY TRACT: No identified significant cystic or solid masses. No stones.No hydronephrosis or hydroureter. Symmetric enhancement. Normal bladder. GI: Prominent amount of stool is seen in the colon. This is particularly evident in the transverse and ascending colon. This may represent constipation. No dilated bowel is seen to suggest obstruction. Small bowel appears grossly unremarkable. The stomach appears unremarkable. PERITONEUM: No ascites or free air. RETROPERITONEUM: No mass or adenopathy. REPRODUCTIVE: No significant abnormality. MUSCULOSKELETAL: No significant abnormality. OTHER: No other abnormality. IMPRESSION: Prominent amount of stool in the colon may suggest constipation. No evidence obstruction is seen. No active site of hemorrhage is clearly identified. THIS IS AN ELECTRONICALLY VERIFIED FINAL REPORT 01/30/2024 12:43 AM - Electronically signed by Salvador Marques M.D. KH: ROSA MARIA Report ID: [id number] Reading Location: [id number] MRI Shoulder Left WO Contrast Result Date: 01/29/2024 Narrative: EXAM DESCRIPTION: MRI SHOULDER LEFT WO CONTRAST REASON FOR STUDY: Shoulder pain, rotatorcuff disorder suspected, nondiagnostic xray, LEFT SHOULDER PAIN Shoulder pain, rotator cuff disorder suspected, xray done; LEFT SHOULDER PAIN TECHNIQUE: Multiplanar, multisequence MRI of the left shoulder was performed without intravenous contrast administration. COMPARISON: Radiographs dated 12/29/2023 FINDINGS: The examination is degraded due to patient's motion artifact limiting evaluation forsubtle findings. There is a type 2 acromion with a small subacromial spur. The coracoacromial and coracoclavicular ligaments are intact. Moderate acromioclavicular joint osteoarthritis. There is small volume of fluid with debris in the subacromial subdeltoid bursa as well as subcoracoid bursa due to full-thickness rotator cuff tear as detailed below. There is severe chronic fatty atrophy of the supraspinatus and superior half fibers of the infraspinatus muscle. There is mild chronic fatty atrophy subscapularis muscle. The teres minor muscle demonstrates normal bulk and signal intensity. Thereis mild fatty infiltration of the deltoid muscle [...] the glenoid. There is moderate subscapularis hypertrophic tendinopathywith undersurface tendon fraying as well as partial-thickness undersurface tear of its superior fibers involving greater than 50% of tendon thickness. The teres minor tendon is intact. There is nonvis ualization of the extra-articular long head biceps tendon [...] the subacromial subdeltoid and subcoracoid bursa through full- thickness rotator cuff tear. No glenohumeral joint bodies. [...] medial to the level of the glenoid. Severe chronic fatty atrophy [...] Small left glenohumeral joint effusion with slight synovitisextending to the subacromial subdeltoid and subdeltoid bursa due to full-thickness rotator cuff tear. 5. Moderate left acromioclavicular joint osteoarthritis. THIS IS AN ELECTRONICALLY VERIFIED FINAL REPORT 01/29/2024 7:57 PM - Electronically signed by Loc Jon M.D. AT T: Report ID: [id number] Reading Location: [id number] XR Chest 1 Vw Portable Result Date: 01/29/2024 Narrative: EXAM DESCRIPTION: XR CHEST 1 VIEW REASON FOR STUDY: weakness Pt's daughter adds pt hasn't been feeling well for a couple weeks and has been having n/v and last night vomited coffee ground emesis. TECHNIQUE: Frontal radiographic view(s) of the chest. COMPARISON: 12/19/2023 FINDINGS: LUNGS: Mild pulmonary vascular congestion and mild bibasilar atelectasis. No focal opacity, pleural effusion, or pneumothorax. HEART/MEDIASTINUM: Cardiac silhouette is at the upper limits of normal in size. Mediastinal and hilar contours appear normal. LINES/TUBES: Right internal jugular central venous catheter with tip overlying the superior cavoatrial junction. BONES: No acute osseous abnormality. IMPRESSION: 1.Mild pulmonary vascular congestion and mild bibasilar atelectasis. THIS IS AN ELECTRONICALLY VERIFIED FINAL REPORT 01/29/2024 7:20 PM - Electronically signed by Loc Jon M.D. AT: AT Report ID: [id number] Reading Location: [place] [id number] Dexa Axial Skeleton Bone Density 1 or 2 Site Result Date: 01/22/2024 Narrative: EXAM DESCRIPTION: DEXA AXIAL SKELETON BONE DENSITY 1 OR MORE SITES REASON FOR STUDY: 73 y/o year old F with given history of: Post menopausal status. History of taking vitamin-D. History of end-stage renal disease. 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 IMPRESSION: Normal bone mass. REFERENCE: Bone mineral density: T- Score: Normal (T-score above or = -1.0) Low bone mass (T-scorebetween -1.0 and - 2.5) replaces the previously used term osteopenia Osteoporosis (T-score = or below -2.5) Z-Score: Within the expected range for age (Z-score above -2.0) Below the expected range forage (Z-score is -2.0 or below) Please see below follow up recommendations. Medical evaluation for secondary causes of low bone mineral density may be appropriate. FRAX is a World Health Organization v alidated fracture risk assessment tool that calculates a person's 10 year probability of a major osteoporosis related fracture and hip fracture. According to the National Osteoporosis Foundation guidelines, postmenopausal women and men age 50 or older with low bone mass and a 10 year probability ofa major osteoporosis related fracture = or greater than 20% or a 10 year probability of a hip fracture = or greater than 3% should be considered for pharmacological treatment for the prevention of osteoporosis. For further information, including treatment recommendations, please refer to the 2019 ISCD Official Positions (http://www.iscd.org) and the NOF's Clinician's Guide to Prevention and Treatm ent of Osteoporosis (http://www.nof.org/professionals/clinical-guidelines) THIS IS AN ELECTRONICALLY VERIFIED FINAL REPORT 01/22/2024 1:02 PM - Electronically signed by Rafaela Paulino M.D. TW: TW Report ID: [id number] Reading Location: [id number] Screening Mammogram Bilateral W Stalin Result Date: 01/22/2024 Narrative: Screening Mammogram Bilateral W Stalin: 01/22/24 The study was acquired using full field digital technology and interpreted from soft copy. 2D digital mammographic views, as well as 3D digitaltomosynthesis were performed in the CC and MLO projections. CLINICAL: Encounter for screening mammogram for breast cancer No relevant medical history has been documented for this patient. No known family history of breast cancer. COMPARISONS: [...] suspicious finding in either breast on mammogram. Impression: BI-RADS?? ATLAS category (overall): 2 - Benign There is no mammographic evidence of malignancy. A 1 year screening mammogram is recommended. The patient has been or will be contacted. We recommend annual screening mammography for women at average risk of breast cancer beginning at age 40, based on guidelines of the [employer] (ACR Practice Parameter for the Performance of Screening and Diagnostic Mammography) and [employer]. For women with and elevated risk of breast cancer, please refer to the ACR Practice Parameter for specific screening recommendations. The patient will be entered into a reminder system with a targetdue date of 1 year for her next screening exam. A/P: Principal Problem: Upper GI bleeding Active Problems: Coffee ground emesis Resolved Problems: STEFANO (acute kidney injury) (HCC) GI bleed Acute on chronic Anemia d/t above ESRD on dialysis TTS NSTEMI type 2 Asymptomatic pyuria Hypertensive urgency Chronic constipation Presented with reports of left shoulder pain, nausea and vomiting, nontraumatic Reportedly has been taking Motrin for a while due to this pain. Hemoglobin 7.4, baseline around 9 Physical examination relatively unremarkable MRI left shoulder without contrast 01/29/2024 - Multiple full-thickness and partial-thickness tendon tear noted CTA abdomen pelvis 01/30/2024 - Prominent amount of stool in the colon may suggest constipation. No evidence obstruction is seen. No active site of hemorrhage is clearly identified. Status post hydralazine, Protonix, clonidine, tramadol, 1 PRBC in the ED Admit to inpatient Medicine Supportive care, blood products transfusion Monitor hemoglobin, transfuse for hemoglobin less than 7 Discontinue NSAIDs, bowel regimen Consult with GI for scope Hold chemical anticoagulation, keep NPO Consult with Nephrology for dialysis Multimodal pain management Medical comorbidities Hypertension/hyperlipidemia Diabetes mellitus type 2 Dementia CHF Restart home regimens, holding chemical anticoagulations Sliding scale coverage 01/30 Upper GI bleed. Protonix. GI planning for endoscopy today. NPO. Trend CBC. Hypotension likely 2/2 iatrogenic causes with medications and hemodialysis. Modified blood pressure medications to optimize hypotension and minimize frequent episodes of hypotension. ESRD on hemodialysis. Nephrology consulted. Follow up recommendations. Left arm pain. x-rays of left shoulder, arm, and forearm. Given pain medications. Patient denied chest pain, SOB. No swelling or erythema noted in arm. Code status: Full Code DVT prophylaxis: Held given concern for GI bleed. Pending endoscopy with possible biopsies Diet: NPO pending EGD PT/OT: Home with family, home PT Disposition: Pending Expected Date of Discharge: 2-3 days Case discussed Order Make Up Clerk Bedside nurse MDM moderate Voice recognition software MModal Fluency Direct may have been used dictate and transcribe this document. Vegetable Tester variances may occur. Despite proofreading, typographical errors may occur. Michoacano Gibson MD [facility] [place] Hospitalist Internal Medicine * Janis Hanson MD - 01/30/2024 3:06 PM CDT Dialysis note Patient was seen and examined during HD. * Anabel Moreno PT - 01/30/2024 9:48 AM CDT Physical Therapy 01/30/24 0948 General Chart Reviewed Yes Session Type Evaluation PT Missed Visit Reason Procedure/testing/appointment (Pt receiving dialysis. Will attempt PT eval at a later time.) documented in this encounter H&P Notes * Malcolm Duvall MD - 01/31/2024 1:15 PM CDT Interval H & P I reviewed the patient's history and physical examination prior to the procedure, and there are no changes. * Herve Tavera MD - 01/30/2024 1:32 AM CDT Images from the original note were not included. HOSPITAL MEDICINE HISTORY AND PHYSICAL Patient Identifiers: Sixto Chakraborty 73 y.o.female : 1950 ED Bed Date/Time: 01/29/2024 7:10 PM Attending Physician: Herve Tavera MD Patient Care Team: Duane Corcoran MD as PCP - General (Family Medicine) Mark Queen MD as Consulting Physician (Infectious Diseases) Rudolph Welch MD as Consulting Physician (Infectious Diseases) Markie Ryan MD as Consulting Physician (Nephrology) Dulce Vega RN as Area Representative Jimbo Strauss MD as Consulting Physician (Nephrology) [facility] ASSESSMENT/PLAN Sixto Chakraborty is a 73 y.o. year old female chief complaint of Chief Complaint Patient presents with Arm Pain Nausea Vomiting This case was directly dicussed with the EM provider/staff and work-up reviewed together and independently. I have reviewed prior EMR inpatient/outpatient documentation as unique sources of history and information. I will be admitting the patient to the hospital for greater than 2 midnights as inpatient status. GI bleed Acute on chronic Anemia d/t above ESRD on dialysis TTS NSTEMI type 2 Asymptomatic pyuria Hypertensive urgency Chronic constipation Presented with reports of left shoulder pain, nausea and vomiting, nontraumatic Reportedly has been taking Motrin for a while due to this pain. Hemoglobin 7.4, baseline around 9 Physical examination relatively unremarkable MRI left shoulder without contrast 01/29/2024 - Multiple full-thickness and partial-thickness tendon tear noted CTA abdomen pelvis 01/30/2024 - Prominent amount of stool in the colon may suggest constipation. No evidence obstruction is seen. No active site of hemorrhage is clearly identified. Status post hydralazine, Protonix, clonidine, tramadol, 1 PRBC in the ED Admit to inpatient Medicine Supportive care, blood products transfusion Monitor hemoglobin, transfuse for hemoglobin less than 7 Discontinue NSAIDs, bowel regimen Consult with GI for scope Hold chemical anticoagulation, keep NPO Consult with Nephrology for dialysis Multimodal pain management Medical comorbidities Hypertension/hyperlipidemia Diabetes mellitus type 2 Dementia CHF Restart home regimens, holding chemical anticoagulations Sliding scale coverage I have reviewed the relevant elements of the check-list below with the team and addressed the issues pertinent DVT prophylaxis: SCD Class: Emergency Code Status: Prior Medication Reconciliation Joy Catheter: N/A Isolation: N/A No diet orders on file Bowel regimen addressed HPI Chief Complaint Patient presents with Arm Pain Nausea Vomiting History of Present Illness: Sixto Chakraborty is a 73 y.o. year old female with history significant for HTN, HLD, DM Type II, dementia, CHF, anemia, GERD, ESRD T//Thu., L rotator cuff tear, and neuropathy presenting to the ED w/c/o L shoulder pain onset about 1x month ago. Pt denies any injury and had an MRI done today regarding her arm. Pt states she has been taking Tylenol for pain. Pt also endorses black stools onset 1x week ago and pt's daughter reports an episode of coffee ground emesis last night. Pt also endorses cough and vomiting. Pt denies ABD pain, nausea, heartburn, fever, chills, cold, and any other associated symptoms. Review of Systems: Review of Systems Constitutional: Negative for activity change, diaphoresis and fever. HENT: Negative for congestion, rhinorrhea and sore throat. Eyes: Negative for pain and discharge. Respiratory: Negative for apnea, cough, chest tightness, shortness of breath and wheezing. Cardiovascular: Negative for chest pain, palpitations and leg swelling. Gastrointestinal: Negative for abdominal distention, abdominal pain, constipation, diarrhea, nauseaand vomiting. Genitourinary: Negative for dysuria, hematuria and urgency. Musculoskeletal: Negative for back pain, gait problem, neck pain and neck stiffness. Left shoulder pain Skin: Negative for color change, rash and wound. Neurological: Positive for weakness. Negative for syncope, facial asymmetry, speech difficulty and headaches. Psychiatric/Behavioral: Negative for confusion. Breast: Negative for tenderness. PAST MEDICAL, SURGICAL, SOCIAL, AND FAMILY HISTORY Prior Medical History Prior Surgical History Past Medical History: Diagnosis Date Anemia Arthritis CHF (congestive heart failure) ([facility]) ([facility]) CKD (chronic kidney disease) stage V requiring chronic dialysis ([facility]) Dementia ([facility]) Depression Diabetic neuropathy ([facility]) GERD (gastroesophageal reflux disease) HL (hearing loss) Hyperlipidemia Hypertension Movement disorder Osteomyelitis ([facility]) Rotator cuff tear, left Schizophrenia ([facility]) Type 2 diabetes mellitus ([facility]) Past Surgical History: Procedure Laterality Date SECTION Right right foot EYE SURGERY cataracts FLUORO GUIDED INJECTION SHOULDER LEFT Left 12/18/2023 TOE AMPUTATION Right 01/06/2020 4th toe amp/ foot debridement/ Dr. Anat Pelayo TUNNELED LINE PLACEMENT > 5 YEARS N/A 10/15/2023 Prior Family History Prior Social History Family History Problem Relation Age of Onset Diabetes Mother Heart disease Mother Kidney disease Mother Stomach cancer Father Alcohol abuse Father Diabetes Sister Diabetes Sister Diabetes Brother Social History Tobacco Use Smoking status: Never Smokeless tobacco: Never Substance and Sexual Activity Alcohol use: Not Currently Drug use: Never Sexual activity: Not Currently Partners: Male MEDICATIONS HOME MEDICATIONS Prior to Admission medications Medication Sig Start Date End Date Taking? Authorizing Provider acetaminophen 500 mg capsule Take 2 capsules (1,000 mg total) by mouth 3 (three) times a day as needed for mild pain (pain scale 1-4) Joe Ballard MD aspirin 81 mg chewable tablet 12/28/23 Joe Ballard MD atorvastatin (LIPITOR) 40 mg tablet Take 1 tablet (40 mg total) by mouth nightly 01/06/24 01/05/25 Kiley Nye NP benztropine (COGENTIN) 1 mg tablet 01/08/24 Joe Ballard MD benztropine (COGENTIN) 2 mg tablet Take 1 tablet (2 mg total) by mouth daily 12/25/23 01/24/24 Chavez Isbell MD blood-glucose sensor (FreeStyle Madhav 3 Sensor) device Use for continuous glucose monitoring. Change sensor every 14 days 06/30/23 Smith Gibbs MD calcium acetate,phosphat bind, (PHOSLO) 667 mg capsule TAKE 1 CAPSULE(667 MG) BY MOUTH THREE TIMES DAILY WITH MEALS 10/29/23 Duane Corcoran MD carvediloL (COREG) 3.125 mg tablet Take 1 tablet (3.125 mg total) by mouth 2 (two) times a day withmeals 12/18/23 12/17/24 Markie Ryan MD diclofenac sodium (VOLTAREN) 1 % gel Apply 4 g topically 3 (three) times a day Patient not taking: Reported on 01/05/2024 12/30/23 Miguel Ramos PA docusate sodium (COLACE) 100 mg capsule Take 1 capsule (100 mg total) by mouth every 12 (twelve) hours Patient taking differently: Take 1 capsule (100 mg total) by mouth 2 (two) times a day as needed 12/03/23 Demetri Villanueva MD famotidine (PEPCID) 10 mg tablet Take 1 tablet (10 mg total) by mouth daily Joe Ballard MD FeroSuL 325 mg (65 mg iron) tablet Take 1 tablet (325 mg total) by mouth daily with breakfast 01/03/24 Joe Ballard MD flash glucose scanning reader [facility] Use Madhav 3 reader to scan Madhav 3 sensor 06/30/23 Smith Gibbs MD flash glucose sensor (FreeStyle Madhav 2 Sensor) kit Use to continually monitor glucose, change every 14 days 03/24/23 Radha Franco, JARAD fluticasone propionate (FLONASE) 50 mcg/actuation nasal spray Administer 2 sprays into each nostrildaily as needed for rhinitis ProviderJoe MD FreeStyle Madhav 3 [place] [facility] Use Madhav 3 reader to scan Madhav 3 sensor 09/25/23 ProviderJoe MD gabapentin (NEURONTIN) 100 mg capsule Take 100 mg 3 times per week after hemodialysis. 01/11/24 Duane Corcoran MD hydrALAZINE (APRESOLINE) 25 mg tablet Take 2 tablets (50 mg total) by mouth 3 (three) times a day 01/06/24 02/05/24 Kiley Nye, JARAD insulin glargine 100 unit/mL (3 mL) pen for injection Inject 18 Units under the skin nightly Joe Ballard MD insulin lispro (HumaLOG, ADMELOG) 100 unit/mL vial for injection Inject 4 Units under the skin 3 (three) times a day before meals Gets 4 units at baseline then 1 unit for every 50 over 150 Joe Ballard MD lidocaine (ASPERCREME) 4 % adhesive patch,medicated Place 1 patch on the skin daily as needed to lower back Joe Ballard MD NIFEdipine (NIFEdipine CC) 60 mg 24 hr tablet TAKE 1 TABLET BY MOUTH DAILY 01/11/24 Duane Corcoran MD pen needle, diabetic (Easy Touch) 32 gauge x 532 needle USE DIRECTED FOUR TIMES DAILY 12/02/23 Smith Gibbs MD polyethylene glycol (MIRALAX) 17 gram/dose bulk powder Take 17 g by mouth daily as needed (Constipation) 10/22/23 Zhang Mendez MD risperiDONE (RisperDAL) 2 mg tablet Take 1 tablet (2 mg total) by mouth nightly 12/25/23 01/24/24 Chavez Isbell MD traMADoL (ULTRAM) 25 mg tablet Take 1 tablet (25 mg total) by mouth every 8 (eight) hours as neededfor pain 01/11/24 02/10/24 Duane Corcoran MD omeprazole (PriLOSEC) 20 mg capsule Take 1 capsule (20 mg total) by mouth daily 06/13/21 09/06/21 Duane Corcoran MD Home Medications verified and updated by School Psychologist: [] Yes, completed [] No, to be verified and completed ALLERGIES No Known Allergies EXAM PHYSICAL EXAM: VITALS INTAKE/OUTPUT Vitals: 01/30/24 0100 BP: (!) 179/71 Pulse: 63 Resp: 15 Temp: SpO2: 99% No intake or output data in the 24 hours ending 01/30/24 0132 Physical Exam Vitals and nursing note reviewed. Constitutional: General: She is not in acute distress. Appearance: She is normal weight. She is ill-appearing. She is not toxic- appearing or diaphoretic. HENT: Head: Normocephalic and atraumatic. Mouth/Throat: Mouth: Mucous membranes are moist. Eyes: Extraocular Movements: Extraocular movements intact. Cardiovascular: Rate and Rhythm: Normal rate and regular rhythm. Heart sounds: Normal heart sounds. Comments: Dialysis access noted Pulmonary: Effort: Pulmonary effort is normal. Breath sounds: Normal breath sounds. No wheezing or rales. Abdominal: General: Bowel sounds are normal. There is no distension. Palpations: Abdomen is soft. There is no mass. Tenderness: There is no abdominal tenderness. There is no guarding or rebound. Musculoskeletal: General: No swelling or tenderness. Right lower leg: No edema. Left lower leg: No edema. Skin: General: Skin is warm and dry. Coloration: Skin is not jaundiced. Findings: No lesion or rash. Neurological: General: No focal deficit present. Mental Status: She is alert. Motor: No weakness. Psychiatric: Mood and Affect: Mood normal. Behavior: Behavior normal. LABS/RADIOLOGY RESULTS Labs: Recent Results (from the past 48 hour(s)) Comprehensive metabolic panel Collection Time: 01/29/24 6:36 PM Result Value Ref Range Sodium 137 135 - 145 mmol/L Potassium, pl 4.0 3.3 - 4.9 mmol/L Chloride 96 (L) 97 - 110 mmol/L CO2 27 22 - 32 mmol/L Anion gap 14 2 - 15 mmol/L BUN 32 (H) 6 - 25 mg/dL Creatinine 3.10 (H) 0.60 - 1.10 mg/dL Glucose 172 70 - 199 mg/dL Calcium 9.1 8.5 - 10.3 mg/dL Bilirubin, total <0.2 0.1 - 1.2 mg/dL Protein, pl 7.5 6.5 - 8.5 g/dL Albumin 4.0 3.5 - 5.0 g/dL Alk phos 124 40 - 130 Units/L ALT 15 7 - 45 Units/L AST 15 10 - 45 Units/L Lipase Collection Time: 01/29/24 6:36 PM Result Value Ref Range Lipase 12 10 - 99 Units/L Troponin T high-sensitivity series (baseline, 2hr, 4hr, 6hr) Collection Time: 01/29/24 6:36 PM Result Value Ref Range Trop T hs 102 (H) <=14 ng/L eGFR Collection Time: 01/29/24 6:36 PM Result Value Ref Range eGFR 15 (L) >=60 mL/min/1.73 m2 CBC with auto differential Collection Time: 01/29/24 7:52 PM Result Value Ref Range WBC 9.0 3.8 - 9.9 K/cumm Hgb 7.4 (L) 11.9 - 15.5 g/dL Hct 22.9 (L) 35.6 - 45.5 % Plt 322 150 - 400 K/cumm MPV 10.0 9.1 - 12.3 fL RBC 2.34 (L) 3.90 - 5.20 M/cumm MCV 97.9 (H) 81.3 - 96.4 fL MCH 31.6 27.1 - 33.3 pg MCHC 32.3 32.3 - 35.7 g/dL RDW CV 15.6 (H) 11.1 - 14.9 % RDW SD 55.9 (H) 35.7 - 48.1 fL NRBC abs 0.00 0.00 - 0.01 K/cumm Urinalysis reflex to microscopic and culture Urine Collection Time: 01/29/24 7:52 PM Specimen: Urine Result Value Ref Range Color, ur Straw Yellow Clarity, ur Clear Clear Specific gravity, ur 1.007 1.003 - 1.030 pH, urine 7.0 Protein, ur ql 2+ (A) Negative Glucose, ur ql Trace (A) Negative Ketones, ur Negative Negative Bilirubin, ur Negative Negative Blood, ur Negative Negative Urobilinogen, ur <2.0 <2.0 mg/dL Nitrite, ur Negative Negative Leukocyte esterase, ur 2+ (A) Negative UA reflex comment Reflex to microscopic UA will be performed. aPTT Collection Time: 01/29/24 7:52 PM Result Value Ref Range aPTT 27 22 - 37 sec Protime-INR Collection Time: 01/29/24 7:52 PM Result Value Ref Range PT 12.6 12.0 - 14.6 sec INR 0.9 0.9 - 1.2 Sepsis Lactate w/ Reflex Collection Time: 01/29/24 7:52 PM Result Value Ref Range Sepsis Lactate 0.9 0.7 - 2.0 mmol/L Differential, auto Collection Time: 01/29/24 7:52 PM Result Value Ref Range Neutrophil abs 5.5 1.5 - 6.5 K/cumm Imm gran abs 0.0 0.0 - 0.1 K/cumm Lymphocyte abs 2.5 0.8 - 3.3 K/cumm Monocyte abs 0.7 0.2 - 0.8 K/cumm Eosinophil abs 0.2 0.0 - 0.5 K/cumm Basophil abs 0.0 0.0 - 0.1 K/cumm Neutrophil pct 60.7 % Imm gran pct 0.3 % Lymphocyte pct 28.3 % Monocyte pct 8.2 % Eosinophil pct 2.3 % Basophil pct 0.2 % Urinalysis, microscopic only Collection Time: 01/29/24 7:52 PM Result Value Ref Range WBC, ur 0-5 0 - 5 /HPF RBC, ur 0-2 0 - 2 /HPF Epithelial cells, squamous, ur 11-20 (A) 0 - 5 /HPF Bacteria, ur Trace (A) Culture Reflex Comment Reflex conditions for urine culture (WBC >10) not met. Troponin T high-sensitivity 2-hour Collection Time: 01/29/24 8:58 PM Result Value Ref Range Trop T hs 100 (H) <=14 ng/L Trop T hs pct delta -2 % Trop T hs interp Insignificant Troponin T high-sensitivity 4-hour Collection Time: 01/29/24 10:28 PM Result Value Ref Range Trop T hs 101 (H) <=14 ng/L Trop T hs pct delta -1 % Trop T hs interp Insignificant ABO/Rh Collection Time: 01/29/24 10:28 PM Result Value Ref Range ABO/Rh B Positive Antibody screen Collection Time: 01/29/24 10:28 PM Result Value Ref Range Regi, indirect, Gel Interpretation Negative ABSC Crossmatch Collection Time: 01/29/24 10:28 PM Result Value Ref Range Crossmatch Compatible Unit number for crossmatch [id number] Prepare RBC: 1 Units Collection Time: 01/29/24 11:20 PM Result Value Ref Range Units requested 1 Units requested Ready Unit Number [id number] Product code [id number] Blood Expiration Date Product Blood Type (for scanning) 7300 Product Blood Type BPOS Dispense Status DISPENSED Micro No results found for: URINECULTURE , BLOODCULT Imaging: CTA Abdomen Pelvis Result Date: 01/30/2024 Narrative: EXAM DESCRIPTION: CTA ABDOMEN PELVIS REASON FOR STUDY: GI bleed Per ER Charge Olivia PT toget dialysis on sat during day prior to 10pm Triage note Pt reports she is having L arm pain for 1-2 weeks. Blew to raise arm but causes pain. States she gets dialysis tues, thurs and sat. Denies injury. Had MRI done today regarding arm. Pt's daughter adds pt hasn't been feeling well for a couple weeks and has been having n/v and last night vomited coffee ground emesis. Md note Chief Complaint Patient presents with Arm Pain Nausea Vomiting HPI HPI Sixto Chakraborty is a 73 y.o. female w/ PMHx including HTN, HLD, DM Type II, dementia, CHF, anemia, GERD, ESRD, L rotator cuff tear, and neuropathy presenting to the ED w/ c/o L shoulder pain onset about 1x month ago. Pt denies any injury and had an MRI done today regarding her arm. Pt states she has been taking Tylenol for pain. Pt also endorsesblack stools onset 1x week ago and pt's daughter reports an episode of coffee ground emesis last night. Pt also endorses cough and vomiting. Pt denies ABD pain, nausea, heartburn, fever, chills, cold, and any other associated symptoms. Pt reports she gets Dialysis T/Th/Sat TECHNIQUE: CTA scan of the abdomen and pelvis performed without and with intravenous and without oral contrast using helical scanning technique with dynamic intravenous contrast injection. Precontrast, arterial, and portal venous phase images of the abdomen and pelvis were acquired. Images reviewed with lung, soft tissue and bone windows. Reconstructed coronal and sagittal MPR images reviewed. All images stored on PACS. 3D MIP images rendered on scanning unit and reviewed at time of interpretation. Automated exposure control was used as a dose optimization technique for this examination. CONTRAST TYPE/DOSE: 100mL of IOVERSOL 350 MG IODINE/ML INTRAVENOUS SYRINGE injected via intravenous COMPARISON: 12/19/2019 FINDINGS: VASCULATURE: No dissection, aneurysm, intramural hematoma, rupture, or penetrating atherosclerotic ulcer. No large vessel occlusion. CELIAC TRUNK: No flow limiting stenosis, dissection, or aneurysm. SUPERIOR MESENTERIC ARTERY: No flow limiting stenosis, dissection, or aneurysm. RIGHT RENAL ARTERY: No flow limiting stenosis, dissection, or aneurysm. LEFT RENAL ARTERY: No flow limiting stenosis,dissection, or aneurysm. INFERIOR MESENTERIC ARTERY: No flow limiting stenosis, dissection, or aneurysm. AORTA: No flow limiting stenosis, dissection, or aneurysm. Minor atherosclerotic calcificationis noted. ILIAC ARTERIES: No flow limiting stenosis, dissection, or aneurysm. LOWER CHEST: No significant pulmonary abnormalities. No effusion. LIVER: Normal size. No identified cystic or solid masses. GALLBLADDER: Unremarkable BILE DUCTS: No intrahepatic or extrahepatic ductal dilatation. SPLEEN: Normal size. No focal lesions. PANCREAS: No identified cystic or solid masses. No significant calcifications. No adjacent inflammation or peripancreatic fluid collections. Pancreatic duct not dilated.ADRENALS: Normal. KIDNEYS/URINARY TRACT: No identified significant cystic or solid masses. No stones. No hydronephrosis or hydroureter. Symmetric enhancement. Normal bladder. GI: Prominent amount of stool is seen in the colon. This is particularly evident in the transverse and ascending colon. Thismay represent constipation. No dilated bowel is seen to suggest obstruction. Small bowel appears grossly unremarkable. The stomach appears unremarkable. PERITONEUM: No ascites or free air. RETROPERITONEUM: No mass or adenopathy. REPRODUCTIVE: No significant abnormality. MUSCULOSKELETAL: No significant abnormality. OTHER: No other abnormality. IMPRESSION: Prominent amount of stool in the colon maysuggest constipation. No evidence obstruction is seen. No active site of hemorrhage is clearly identified. THIS IS AN ELECTRONICALLY VERIFIED FINAL REPORT 01/30/2024 12:43 AM - Electronically signed by Salvador Marques M.D. KH: KH Report ID: [id number] Reading Location: [id number] MRI Shoulder Left WO Contrast Result Date: 01/29/2024 Narrative: EXAM DESCRIPTION: MRI SHOULDER LEFT WO CONTRAST REASON FOR STUDY: Shoulder pain, rotatorcuff disorder suspected, nondiagnostic xray, LEFT SHOULDER PAIN Shoulder pain, rotator cuff disorder suspected, xray done; LEFT SHOULDER PAIN TECHNIQUE: Multiplanar, multisequence MRI of the left shoulder was performed without intravenous contrast administration. COMPARISON: Radiographs dated 12/29/2023 FINDINGS: The examination is degraded due to patient's motion artifact limiting evaluation forsubtle findings. There is a type 2 acromion with a small subacromial spur. The coracoacromial and coracoclavicular ligaments are intact. Moderate acromioclavicular joint osteoarthritis. There is small volume of fluid with debris in the subacromial subdeltoid bursa as well as subcoracoid bursa due to full-thickness rotator cuff tear as detailed below. There is severe chronic fatty atrophy of the supraspinatus and superior half fibers of the infraspinatus muscle. There is mild chronic fatty atrophy subscapularis muscle. The teres minor muscle demonstrates normal bulk and signal intensity. Thereis mild fatty infiltration of the deltoid muscle [...] the glenoid. There is moderate subscapularis hypertrophic tendinopathywith undersurface tendon fraying as well as partial-thickness undersurface tear of its superior fibers involving greater than 50% of tendon thickness. The teres minor tendon is intact. There is nonvis ualization of the extra-articular long head biceps tendon [...] the subacromial subdeltoid and subcoracoid bursa through full- thickness rotator cuff tear. No glenohumeral joint bodies. [...] medial to the level of the glenoid. Severe chronic fatty atrophy [...] Small left glenohumeral joint effusion with slight synovitisextending to the subacromial subdeltoid and subdeltoid bursa due to full-thickness rotator cuff tear. 5. Moderate left acromioclavicular joint osteoarthritis. THIS IS AN ELECTRONICALLY VERIFIED FINAL REPORT 01/29/2024 7:57 PM - Electronically signed by Loc Jon M.D. AT T: Report ID: [id number] Reading Location: [id number] XR Chest 1 Vw Portable Result Date: 01/29/2024 Narrative: EXAM DESCRIPTION: XR CHEST 1 VIEW REASON FOR STUDY: weakness Pt's daughter adds pt hasn't been feeling well for a couple weeks and has been having n/v and last night vomited coffee ground emesis. TECHNIQUE: Frontal radiographic view(s) of the chest. COMPARISON: 12/19/2023 FINDINGS: LUNGS: Mild pulmonary vascular congestion and mild bibasilar atelectasis. No focal opacity, pleural effusion, or pneumothorax. HEART/MEDIASTINUM: Cardiac silhouette is at the upper limits of normal in size. Mediastinal and hilar contours appear normal. LINES/TUBES: Right internal jugular central venous catheter with tip overlying the superior cavoatrial junction. BONES: No acute osseous abnormality. IMPRESSION: 1.Mild pulmonary vascular congestion and mild bibasilar atelectasis. THIS IS AN ELECTRONICALLY VERIFIED FINAL REPORT 01/29/2024 7:20 PM - Electronically signed by Loc Jon M.D. AT: AT Report ID: [id number] Reading Location: [id number] Dexa Axial Skeleton Bone Density 1 or 2 Site Result Date: 01/22/2024 Narrative: EXAM DESCRIPTION: DEXA AXIAL SKELETON BONE DENSITY 1 OR MORE SITES REASON FOR STUDY: 73 y/o year old F with given history of: Post menopausal status. History of taking vitamin-D. History of end-stage renal disease. 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 IMPRESSION: Normal bone mass. REFERENCE: Bone mineral density: T- Score: Normal (T-score above or = -1.0) Low bone mass (T-scorebetween -1.0 and - 2.5) replaces the previously used term osteopenia Osteoporosis (T-score = or below -2.5) Z-Score: Within the expected range for age (Z-score above -2.0) Below the expected range forage (Z-score is -2.0 or below) Please see below follow up recommendations. Medical evaluation for secondary causes of low bone mineral density may be appropriate. FRAX is a World Health Organization v alidated fracture risk assessment tool that calculates a person's 10 year probability of a major osteoporosis related fracture and hip fracture. According to the National Osteoporosis Foundation guidelines, postmenopausal women and men age 50 or older with low bone mass and a 10 year probability ofa major osteoporosis related fracture = or greater than 20% or a 10 year probability of a hip fracture = or greater than 3% should be considered for pharmacological treatment for the prevention of osteoporosis. For further information, including treatment recommendations, please refer to the 2019 ISCD Official Positions (http://www.iscd.org) and the NOF's Clinician's Guide to Prevention and Treatm ent of Osteoporosis (http://www.nof.org/professionals/clinical-guidelines) THIS IS AN ELECTRONICALLY VERIFIED FINAL REPORT 01/22/2024 1:02 PM - Electronically signed by Rafaela Paulino M.D. TW: FAIZAN Report ID: [id number] Reading Location: [id number] Screening Mammogram Bilateral W Stalin Result Date: 01/22/2024 Narrative: Screening Mammogram Bilateral W Stalin: 01/22/24 The study was acquired using full field digital technology and interpreted from soft copy. 2D digital mammographic views, as well as 3D digitaltomosynthesis were performed in the CC and MLO projections. CLINICAL: Encounter for screening mammogram for breast cancer No relevant medical history has been documented for this patient. No known family history of breast cancer. COMPARISONS: [...] suspicious finding in either breast on mammogram. Impression: BI-RADS?? ATLAS category (overall): 2 - Benign There is no mammographic evidence of malignancy. A 1 year screening mammogram is recommended. The patient has been or will be contacted. We recommend annual screening mammography for women at average risk of breast cancer beginning at age 40, based on guidelines of the [employer] (ACR Practice Parameter for the Performance of Screening and Diagnostic Mammography) and [employer]. For women with and elevated risk of breast cancer, please refer to the ACR Practice Parameter for specific screening recommendations. The patient will be entered into a reminder system with a targetdue date of 1 year for her next screening exam. My total encounter time on 01/30/2024 was 56 minutes which was spent in the activities documented inthe note. This includes time spent prior to the visit and after the visit in direct care of the patient. This time does not include time spent in any separately reportable services. DISCLAIMER: This chart was created using [employer] dictation software. Efforts were made by me to ensure accuracy, however some errors may be present due to limitations of this technology and occasionally words are not transcribed as intended. Electronically signed: Herve Tavera MD 01/30/2024 / 1:32 AM documented in this encounter Procedure Notes * Malcolm Duvall MD - 01/31/2024 12:18 PM CDTAssociated Order(s): EGD [facility] GI ENDOSCOPY Patient Name: Sixto Chakraborty Procedure Date: 01/31/2024 12:18 PM Date of : 1950 Admit Type: Inpatient Age: 73 Gender: Female Attending MD: Malcolm Duvall MD Room: [facility] ENDOSCOPY ROOM 01 Note Status: Finalized Procedure: Upper GI endoscopy Indications: Coffee-ground emesis Referring MD: Providers: Malcolm Duvall MD Medicines: Monitored Anesthesia Care Complications: No immediate complications. Estimated blood loss: Minimal. Estimated Blood Loss: Estimated blood loss was minimal. Procedure: Pre-Anesthesia Assessment: - Prior to the procedure, a History and Physical was performed, and patient medications and allergies were reviewed. The patient is unable to give consent secondary to the patient's altered mental status. The risks and benefits of the procedure and the sedation options and risks were discussed with the patient's daughter. All questions were answered and informed consent was obtained. Patient identification and proposed procedure were verified by the physician, the nurse and the anesthesiologist in the procedure room. Mental Status Examination: alert but confused. Airway Examination: normal oropharyngeal airway and neck mobility. Respiratory Examination: clear to auscultation. CV Examination: normal. Prophylactic Antibiotics: The patient does not require prophylactic antibiotics. Prior Anticoagulants: The patient has taken no anticoagulant or antiplatelet agents. ASA Grade Assessment: III - A patient with severe systemic disease. After reviewing the risks and benefits, the [...] was re-assessed after the procedure. The benefits, risks, and alternatives to the procedure and sedation were discussed and informed consent was obtained. The scope was passed under direct vision. The GIF-H180J upper endoscope was introduced through the mouth, and advanced to the second part of duodenum. The upper GI endoscopy was accomplished without difficulty. The patient tolerated the procedure well. Findings: The Z-line was irregular. Inflammation characterized by erosions, erythema and friability was found in the entire examined stomach. Biopsies were taken with a cold forceps for Helicobacter pylori testing from the antrum and body. One biopsy site in the body was oozing but stopped without intervention. The examined duodenum was normal. Impression: - Z-line irregular. - Gastritis. Biopsied to rule out H pylori. Also considering gastritis secondary to iron pills. - Normal examined duodenum. Recommendation: - Return patient to the hospital bell for ongoing care. - Continue to monitor for signs of GI bleeding and trend hemoglobin. Transfuse for hemoglobin less than 7-8. - Treat with pantoprazole 40 mg PO BID for 8 weeks. - Start carafate 1 gram slurry PO QID for 8 weeks. - Follow up with outpatient GI and repeat EGD in 8 weeks to check healing. - Follow up pathology. - Clear liquid diet without red dye. Malcolm Duvall M.D. Malcolm Duvall MD 01/31/2024 1:46:42 PM . Number of Addenda: 0 Note Initiated On: 01/31/2024 12:18 PM Recognized by the [employer] for promoting quality in endoscopy documented in this encounter Consult Notes * Malcolm Duvall MD - 01/30/2024 12:57 PM CDTAssociated Order(s): IP CONSULT TO GASTROENTEROLOGY Gastroenterology Consult Consulting Provider: Dr. Gibson Chief Complaint/reason for consult: Coffee-ground emesis, dark stools Subjective HPI: 73-year-old female with a history significant for end-stage renal disease on dialysis, CHF, dementia, who presented to the emergency department with shoulder pain. GI has been consulted due to coffee-ground emesis and melena. History is obtained through chart review, discussion with the patient, and discussion with the patient's daughter. The patient reportedly started having left shoulder pain about a month ago. She has been taking Tylenol for pain relief. Her daughter says that she gave her 1 dose of ibuprofen a few days ago, but otherwise she has not been taking NSAIDs. Two days ago, the patient had an episode of black-colored emesis in the middle of the night. This happened again 1 additional time. She has been having dark stools, though this is not new and has been attributed to iron pills. She denies any abdominal pain. Last EGD and colonoscopy were in 2017, with outside hospital notes mentioning esophagus normal, stomach normal, small bowel normal. Colonoscopy with poor prep, scope advanced to the TI. TI normal, cecal polyps 2-3 mm removed, biopsies obtained from the rectum, medium-sized hemorrhoids. BUN 36, creatinine 3.3. LFTs normal. White blood cell count 9.4, platelets 237. Most recent hemoglobin of 7.9 on January 04, 7.4 on presentation, and 9.6 after 1 unit of packed red blood cells. Iron studies with normal iron, normal transferrin saturation, and elevated ferritin. Imaging reviewed. CTA abdomen pelvis shows prominent stool in the colon may suggest constipation. No active site of hemorrhage is clear identified. Past Medical History: Diagnosis Date Anemia Arthritis CHF (congestive heart failure) ([facility]) (HCC) CKD (chronic kidney disease) stage V requiring chronic dialysis ([facility]) Dementia ([facility]) Depression Diabetic neuropathy ([facility]) GERD (gastroesophageal reflux disease) HL (hearing loss) Hyperlipidemia Hypertension Movement disorder Osteomyelitis (HCC) Rotator cuff tear, left Schizophrenia ([facility]) Type 2 diabetes mellitus ([facility]) Past Surgical History: Procedure Laterality Date SECTION [...] mouth nightly 30 tablet 11 benztropine (COGENTIN) 1 mg tablet benztropine (COGENTIN) 2 mg tablet [...] times a day withmeals 180 tablet 3 diclofenac sodium (VOLTAREN) 1 % gel Apply 4 g topically 3 (three) times a day (Patient not taking:Reported on 01/05/2024) 100 g 0 docusate sodium (COLACE) 100 mg capsule Take 1 capsule (100 mg total) by mouth every 12 (twelve) hours (Patient taking differently: Take 1 capsule (100 mg total) by mouth 2 (two) times a day as needed) 60 capsule 0 famotidine (PEPCID) 10 mg tablet Take 1 tablet (10 mg total) by mouth daily FeroSuL 325 mg (65 mg iron) tablet Take 1 tablet (325 mg total) by mouth daily with breakfast flash glucose scanning reader [facility] Use Madhav 3 reader to scan Madhav 3 sensor 1 each 0 flash glucose sensor (FreeStyle Madhav 2 Sensor) kit Use to continually monitor glucose, change every 14 days 6 kit 3 fluticasone propionate (FLONASE) 50 mcg/actuation nasal spray Administer 2 sprays into each nostrildaily as needed for rhinitis FreeStyle Madhav 3 [place] mis Use Madhav 3 reader to scan Madhav 3 sensor gabapentin (NEURONTIN) 100 mg capsule Take 100 mg 3 times per week after hemodialysis. 12 capsule 1 hydrALAZINE (APRESOLINE) 25 mg tablet Take 2 tablets (50 mg total) by mouth 3 (three) times a day 180 tablet 0 insulin glargine 100 unit/mL (3 mL) pen [...] Diabetes Sister Diabetes Brother Review of Systems: 10 point ROS was completed and negative other than listed in the HPI. Vitals: Arrival Vitals Temp 01/29/24 1813 36.7 ??C (98 ??F) Pulse 01/29/24 1813 86 Resp 01/29/24 1813 18 BP 01/29/24 1813 (!) 183/69 SpO2 01/29/24 1813 100 % Temp src 01/29/24 1813 Temporal Heart Rate Source 01/29/24 2355 Monitor Patient Position 01/29/24 2339 Lying BP Location 01/29/24 2339 Right arm FiO2 (%) -- 24hr Min/Max: Temp Min: 36.4 ??C (97.5 ??F) Max: 36.8 ??C (98.2 ??F) Pulse Min: 56 Max: 86 BP Min: 137/52 Max: 191/69 Resp Min: 11 Max: 20 SpO2 Min: 95 % Max: 100 % Most Recent : Vitals: 01/30/24 0919 BP: (!) 178/74 Pulse: 64 Resp: Temp: SpO2: I/O last 2 completed shifts: In: 620 [I.V.:20; Blood:500; IV Piggyback:100] Out: 800 [Urine:800] No intake/output data recorded. Objective Physical exam: General appearance: alert, cooperative, no distress. Eyes: no scleral icterus. HENT: oral mucosa is moist and pink without noticeable ulcers. Cardiovascular: regular rate and rhythm Respiratory: breath sounds normal and symmetric; no crackles or wheezes. Abdomen/Gastrointestinal: soft, non-tender, non-distended, without mass, with normal bowel sounds. Musculoskeletal: no asymmetry or tenderness. Neurological: No gross focal deficits noted. Skin: no rash or lesions. Lab/Radiology/Diagnostic Review: Laboratory review: Lab results in the last 24 hours: Recent Results (from the past 24 hour(s)) Comprehensive metabolic panel Collection Time: 01/29/24 6:36 PM Result Value Ref Range Sodium 137 135 - 145 mmol/L Potassium, pl 4.0 3.3 - 4.9 mmol/L Chloride 96 (L) 97 - 110 mmol/L CO2 27 22 - 32 mmol/L Anion gap 14 2 - 15 mmol/L BUN 32 (H) 6 - 25 mg/dL Creatinine 3.10 (H) 0.60 - 1.10 mg/dL Glucose 172 70 - 199 mg/dL Calcium 9.1 8.5 - 10.3 mg/dL Bilirubin, total <0.2 0.1 - 1.2 mg/dL Protein, pl 7.5 6.5 - 8.5 g/dL Albumin 4.0 3.5 - 5.0 g/dL Alk phos 124 40 - 130 Units/L ALT 15 7 - 45 Units/L AST 15 10 - 45 Units/L Lipase Collection Time: 01/29/24 6:36 PM Result Value Ref Range Lipase 12 10 - 99 Units/L Troponin T high-sensitivity series (baseline, 2hr, 4hr, 6hr) Collection Time: 01/29/24 6:36 PM Result Value Ref Range Trop T hs 102 (H) <=14 ng/L eGFR Collection Time: 01/29/24 6:36 PM Result Value Ref Range eGFR 15 (L) >=60 mL/min/1.73 m2 CBC with auto differential Collection Time: 01/29/24 7:52 PM Result Value Ref Range WBC 9.0 3.8 - 9.9 K/cumm Hgb 7.4 (L) 11.9 - 15.5 g/dL Hct 22.9 (L) 35.6 - 45.5 % Plt 322 150 - 400 K/cumm MPV 10.0 9.1 - 12.3 fL RBC 2.34 (L) 3.90 - 5.20 M/cumm MCV 97.9 (H) 81.3 - 96.4 fL MCH 31.6 27.1 - 33.3 pg MCHC 32.3 32.3 - 35.7 g/dL RDW CV 15.6 (H) 11.1 - 14.9 % RDW SD 55.9 (H) 35.7 - 48.1 fL NRBC abs 0.00 0.00 - 0.01 K/cumm Urinalysis reflex to microscopic and culture Urine Collection Time: 01/29/24 7:52 PM Specimen: Urine Result Value Ref Range Color, ur Straw Yellow Clarity, ur Clear Clear Specific gravity, ur 1.007 1.003 - 1.030 pH, urine 7.0 Protein, ur ql 2+ (A) Negative Glucose, ur ql Trace (A) Negative Ketones, ur Negative Negative Bilirubin, ur Negative Negative Blood, ur Negative Negative Urobilinogen, ur <2.0 <2.0 mg/dL Nitrite, ur Negative Negative Leukocyte esterase, ur 2+ (A) Negative UA reflex comment Reflex to microscopic UA will be performed. aPTT Collection Time: 01/29/24 7:52 PM Result Value Ref Range aPTT 27 22 - 37 sec Protime-INR Collection Time: 01/29/24 7:52 PM Result Value Ref Range PT 12.6 12.0 - 14.6 sec INR 0.9 0.9 - 1.2 Sepsis Lactate w/ Reflex Collection Time: 01/29/24 7:52 PM Result Value Ref Range Sepsis Lactate 0.9 0.7 - 2.0 mmol/L Differential, auto Collection Time: 01/29/24 7:52 PM Result Value Ref Range Neutrophil abs 5.5 1.5 - 6.5 K/cumm Imm gran abs 0.0 0.0 - 0.1 K/cumm Lymphocyte abs 2.5 0.8 - 3.3 K/cumm Monocyte abs 0.7 0.2 - 0.8 K/cumm Eosinophil abs 0.2 0.0 - 0.5 K/cumm Basophil abs 0.0 0.0 - 0.1 K/cumm Neutrophil pct 60.7 % Imm gran pct 0.3 % Lymphocyte pct 28.3 % Monocyte pct 8.2 % Eosinophil pct 2.3 % Basophil pct 0.2 % Urinalysis, microscopic only Collection Time: 01/29/24 7:52 PM Result Value Ref Range WBC, ur 0-5 0 - 5 /HPF RBC, ur 0-2 0 - 2 /HPF Epithelial cells, squamous, ur 11-20 (A) 0 - 5 /HPF Bacteria, ur Trace (A) Culture Reflex Comment Reflex conditions for urine culture (WBC >10) not met. Troponin T high-sensitivity 2-hour Collection Time: 01/29/24 8:58 PM Result Value Ref Range Trop T hs 100 (H) <=14 ng/L Trop T hs pct delta -2 % Trop T hs interp Insignificant Iron profile w/ IBC Collection Time: 01/29/24 8:58 PM Result Value Ref Range Iron 59 35 - 145 mcg/dL TIBC 182 (L) 250 - 400 mcg/dL Transferrin saturation 32 20 - 50 % Ferritin Collection Time: 01/29/24 8:58 PM Result Value Ref Range Ferritin 624 (H) 15 - 150 ng/mL Troponin T high-sensitivity 4-hour Collection Time: 01/29/24 10:28 PM Result Value Ref Range Trop T hs 101 (H) <=14 ng/L Trop T hs pct delta -1 % Trop T hs interp Insignificant ABO/Rh Collection Time: 01/29/24 10:28 PM Result Value Ref Range ABO/Rh B Positive Antibody screen Collection Time: 01/29/24 10:28 PM Result Value Ref Range Regi, indirect, Gel Interpretation Negative ABSC Crossmatch Collection Time: 01/29/24 10:28 PM Result Value Ref Range Crossmatch Compatible Unit number for crossmatch [id number] Prepare RBC: 1 Units Collection Time: 01/29/24 11:20 PM Result Value Ref Range Units requested 1 Units requested Ready Unit Number [id number] Product code [id number] Blood Expiration Date [id number] Product Blood Type (for scanning) 7300 Product Blood Type BPOS Dispense Status DISPENSED Troponin T high-sensitivity 6-hour Collection Time: 01/30/24 1:32 AM Result Value Ref Range Trop T hs 93 (H) <=14 ng/L Trop T hs pct delta -9 % Trop T hs interp Equivocal CBC without differential Collection Time: 01/30/24 8:34 AM Result Value Ref Range WBC 9.4 3.8 - 9.9 K/cumm Hgb 9.6 (L) 11.9 - 15.5 g/dL Hct 28.5 (L) 35.6 - 45.5 % Plt 237 150 - 400 K/cumm MPV 10.0 9.1 - 12.3 fL RBC 3.05 (L) 3.90 - 5.20 M/cumm MCV 93.4 81.3 - 96.4 fL MCH 31.5 27.1 - 33.3 pg MCHC 33.7 32.3 - 35.7 g/dL RDW CV 17.4 (H) 11.1 - 14.9 % RDW SD 58.7 (H) 35.7 - 48.1 fL NRBC abs 0.00 0.00 - 0.01 K/cumm Comprehensive metabolic panel Collection Time: 01/30/24 8:34 AM Result Value Ref Range Sodium 140 135 - 145 mmol/L Potassium, pl 4.1 3.3 - 4.9 mmol/L Chloride 101 97 - 110 mmol/L CO2 24 22 - 32 mmol/L Anion gap 15 2 - 15 mmol/L BUN 36 (H) 6 - 25 mg/dL Creatinine 3.30 (H) 0.60 - 1.10 mg/dL Glucose 111 70 - 199 mg/dL Calcium 8.8 8.5 - 10.3 mg/dL Bilirubin, total 0.5 0.1 - 1.2 mg/dL Protein, pl 6.8 6.5 - 8.5 g/dL Albumin 3.6 3.5 - 5.0 g/dL Alk phos 107 40 - 130 Units/L ALT 14 7 - 45 Units/L AST 12 10 - 45 Units/L Hepatitis B Surface Antigen Blood Collection Time: 01/30/24 8:34 AM Specimen: Blood Result Value Ref Range HepBsAg Nonreactive Nonreactive eGFR Collection Time: 01/30/24 8:34 AM Result Value Ref Range eGFR 14 (L) >=60 mL/min/1.73 m2 POCT glucose Collection Time: 01/30/24 8:35 AM Result Value Ref Range Glucose, POC 110 70 - 199 mg/dL Glucose comment 1 Use This Result BUN 36, creatinine 3.3. LFTs normal. White blood cell count 9.4, platelets 237. Most recent hemoglobin of 7.9 on January 04, 7.4 on presentation, and 9.6 after 1 unit of packed red blood cells. Iron studies with normal iron, normal transferrin saturation, and elevated ferritin. Imaging review: I have reviewed the result(s) Imaging reviewed. CTA abdomen pelvis shows prominent stool in the colon may suggest constipation. No active site of hemorrhage is clear identified. Assessment and Plan/Recommendations (Medical Decision Making): Assessment /Plan Principal Problem: Upper GI bleeding 73-year-old female with a history significant for end-stage renal disease on dialysis, CHF, dementia, who presented to the emergency department with shoulder pain. GI has been consulted due to coffee-ground emesis and melena. Coffee-ground emesis/dark stool - the patient had 2 episodes of dark-colored emesis prior to presentation. She has been also having dark stools, though has been taking iron supplementation. Dark colored emesis could represent coffee- ground emesis concerning for an upper GI bleed. Other than 1 dose of ibuprofen, the patient has not been taking NSAIDs. Hemoglobin on presentation was 7.4 and improved to 9.6 after just 1 unit of packed red blood cells. BUN only mildly elevated in the setting of end-stage renal disease. Unclear if she has true upper GI bleed, though considering gastritis, esophagitis, or peptic ulcer disease. - plan for EGD tomorrow - Keep the patient NPO at midnight. Clear liquid diet today. - Continue to monitor for signs of active GI bleeding. - Repeat CBC q 6-12 hours to monitor hemoglobin. Would transfuse for hemoglobin less than 7 and platelets less than 50,000. - Treatment with IV PPI (pantoprazole 40 mg IV BID). End-stage renal disease - on dialysis. Appreciate Nephrology recommendations. Plan is for dialysis today. Recommendations communicated to the primary Hospitalist. Thank you for allowing me to participate in the care of your patient. Malcolm Duvall MD Voice recognition software [employer] was used dictate and transcribe this document. Vegetable Tester variances may occur. Despite proofreading, typographical errors may occur. * Janis Hanson MD - 01/30/2024 7:17 AM CDTAssociated Order(s): IP CONSULT TO NEPHROLOGY Nephrology Consult Note Attending Provider: Michoacano Gibson* PCP: Duane Corcoran MD Sixto Chakraborty is an 73 y.o. female. Reason for Admission: N/V, left shoulder pain Reason for Consult: ESRD on HD HPI: Mrs. Chakraborty a 73 y.o female with hx of ESRD on chronic HD TTS, DM, HTN, HLD, CHF, dementia, anemia, , -she presented to ED yesterday with a month of left shoulder pain. She also has been having a week of black stool, yesterday she had one time coffee ground emesis. She has cough. She denied fever, chills, CP, SOB, abdominal pian, dizziness, headache. Home medications includes but not limited to ASA, phoslo with meals, famotidine, insulin Past Medical History: Diagnosis Date Anemia Arthritis CHF (congestive heart failure) ([facility]) (HCC) CKD (chronic kidney disease) stage V requiring chronic dialysis ([facility]) Dementia ([facility]) Depression Diabetic neuropathy ([facility]) GERD (gastroesophageal reflux disease) HL (hearing loss) Hyperlipidemia Hypertension Movement disorder Osteomyelitis ([facility]) Rotator cuff tear, left Schizophrenia ([facility]) Type 2 diabetes mellitus ([facility]) Allergies: No Known Allergies Social History Tobacco Use Smoking status: Never Passive exposure: Never Smokeless tobacco: Never Substance and Sexual Activity Drug use: Never Sexual activity: Not Currently Partners: Male Alcohol Use: Not At Risk (01/30/2024) AUDIT-C Frequency of Alcohol Consumption: Never Average Number of Drinks: Patient does not drink Frequency of Binge Drinking: Never Past Surgical History: Procedure Laterality Date SECTION [...] Father Diabetes Sister Diabetes Sister Diabetes Brother [email or web address] Medications Discontinued During This Encounter Medication Reason gabapentin (NEURONTIN) capsule 100 mg Current Facility-Administered Medications Medication Dose Route Frequency Provider Last Rate Last Admin acetaminophen (TYLENOL) tablet 650 mg 650 mg oral TID Herve Tavera MD atorvastatin (LIPITOR) tablet 40 mg 40 mg oral Nightly Herve Tavera MD benztropine (COGENTIN) tablet 2 mg 2 mg oral Daily Herve Tavera MD Carrier Fluids for Secondary Infusion - 0.9% Sodium Chloride 30 mL intravenous PRN Herve Tavera MD carvediloL (COREG) tablet 3.125 mg 3.125 mg oral BID with meals (bkfst, dinner) Herve Tavera MD dextrose (GLUTOSE) 40 % gel 15 g 15 g oral Q15 Min PRN Herve Tavera MD Or dextrose (D10W) 10% bolus 250 mL 250 mL intravenous Q15 Min PRN Herve Tavera MD ferrous sulfate tablet 325 mg 325 mg oral Daily with breakfast Herve Tavera MD gabapentin (NEURONTIN) capsule 100 mg 100 mg oral Once per day on Thursday Herve Tavera MD glucagon injection 1 mg 1 mg intramuscular Q30 Min PRN Herve Tavera MD hydrALAZINE (APRESOLINE) tablet 50 mg 50 mg oral TID Herve Tavera MD insulin glargine (LANTUS, SEMGLEE) 100 unit/mL injection 10 Units 0.15 Units/kg subcutaneous Nightly Herve Tavera MD insulin lispro (HumaLOG, ADMELOG) 100 unit/mL injection 0-4 Units 0-4 Units subcutaneous Nightly Herve Tavera MD insulin lispro (HumaLOG, ADMELOG) 100 unit/mL injection 0-5 Units 0-5 Units subcutaneous TID with meals Herve Tavera MD methocarbamoL (ROBAXIN) tablet 750 mg 750 mg oral TID Herve Tavera MD NIFEdipine (PROCARDIA XL/ADALAT CC) extended release tablet 60 mg 60 mg oral Daily Herve Tavera MD ondansetron ODT (ZOFRAN-ODT) disintegrating tablet 4 mg 4 mg oral Q6H PRN Herve Tavera MD Or ondansetron (ZOFRAN) injection 4 mg 4 mg intravenous Q6H PRN Herve Tavera MD oxyCODONE (ROXICODONE) tablet 5 mg 5 mg oral Q4H PRN Herve Tavera MD polyethylene glycol (MIRALAX) packet 17 g 17 g oral Daily PRN Herve Tavera MD ramelteon (ROZEREM) tablet 8 mg 8 mg oral Nightly PRN Herve Tavera MD risperiDONE (RisperDAL) tablet 2 mg 2 mg oral Nightly Herve Tavera MD sodium chloride 0.9% bolus 200 mL 200 mL intravenous PRN Janis Hanson MD sodium chloride 0.9% flush 0.5-20 mL 0.5-20 mL intra-catheter Q8H SOL Herve Tavera MD10 mL at 01/30/24 0550 sodium chloride 0.9% flush 0.5-20 mL 0.5-20 mL intra-catheter PRN Herve Tavera MD traMADoL (ULTRAM) tablet 25 mg 25 mg oral Q8H PRN Herve Tavera MD Review of Systems: -General: Negative for fever, chills, malaise, or fatigue. -Cardiovascular: Negative for chest pain, lower Ext. edema or lightheadedness. -Respiratory: Negative for shortness of breath, wheezing, cough, or hemoptysis. -Gastrointestinal: `black stool, vomiting. Negative for abdominal pain, constipation, hematemesis, or hematochezia. -Musculoskeletal: Negative for joint pain, muscle aches, back pain, joint swelling or stiffness. -Neurological: Negative for headache, confusion, dizziness, numbness, weakness, or visual problems. Vitals: Blood pressure 159/73, pulse 62, temperature 36.5 ??C (97.7 ??F), temperature source Oral, resp. rate 14, height 157.5 cm (5' 2 ), weight 62.1 kg (136 lb 14.5 oz), SpO2 99%. Physical Exam: -GENERAL: No acute distress, breathing comfortably on O2 NC -EYES: Extraocular movements intact -LUNG: Clear to auscultation bilaterally, No wheezes, No crackles -CVS: Regular rate rhythm, S1 and S2 normal, No murmurs -ABDOMEN: Soft, nondistended, Nontender -Musculoskeletal / EXT: no lower Ext edema. -NEURO: Alert, awake, oriented x3, No gross neuro deficit LABs Recent Labs Lab Units 01/29/24 1836 SODIUM mmol/L 137 POTASSIUM PLASMA mmol/L 4.0 CHLORIDE mmol/L 96* CO2 mmol/L 27 BUN SERUM mg/dL 32* CREATININE mg/dL 3.10* GLUCOSE mg/dL 172 CALCIUM mg/dL 9.1 Recent Labs Lab Units 01/29/24 1952 WBC K/cumm 9.0 RBC M/cumm 2.34* HEMOGLOBIN g/dL 7.4* HEMATOCRIT % 22.9* MCV fL 97.9* MCH pg 31.6 MCHC g/dL 32.3 MPV fL 10.0 Assessment/Plan: Mrs. Chakraborty a 73 y.o female with hx of ESRD on chronic HD TTS, DM, HTN, CHF, dementia, anemia, -she presented to ED with a week of black stool, a day of vomiting / coffee ground emesis, a month of left shoulder pain ---ESRD on chronic HD TTS. Last outpatient HD was . Plan for dialysis today, metabolic profile was reviewed. CXR showed mild Pulmonary vascular congestion. ---GI Sx of black stool, coffee ground emesis. Hg at 7.4; GI consulted. ---Anemia with possible GI bled. Hg at 7.4; pending blood Tx. EPO ---renal osteo; on phoslo with meals for hyperphosphatemia; restart when restarting diet Thank you for allowing me to participate in the care of this patient. We will continue to follow this patient with you. Please contact us with further questions. Janis Hanson MD 01/30/2024 documented in this encounter Nursing Notes * Kim Alves RN - 02/01/2024 6:42 PM CDT Patient discharged to home via private vehicle accompanied by daughter. Discharge instructions reviewed with patient and daughter mina. Questions were encouraged. Verbalized understanding of instructions. AVS discussed and given to patient/Mina. Mobile pharmacy medications and/or prescriptions provided. Belongings/home medications returned. Encouraged to call with any questions/concerns. Discharged with no distress noted. * Kim Alves RN - 02/01/2024 2:17 PM CDT Spoke with patient's daugther Mina. She states she can be here around 6 pm to pick patient up * Kim Alves RN - 02/01/2024 1:[address] Gibson, patient stable for discharge. D/c orders are already in. * Rola Sanchez RN - 01/30/2024 1:35 PM CDT 01/30/24 1300 Post-Hemodialysis Assessment Rinseback Volume (mL) 250 mL Dialyzer Clearance Lightly streaked Duration of Treatment (min) 210 minutes Treatment Status Completed Patient Status Departed Patient Response to Treatment Pt BP soft midway to remainder of treatment. Dr aware. VS monitored and Floor Nurse given report. Pt did receive mornign cardiac medication. Net UF 2250 mL Post-Hemodialysis Comments Tolerated fairly Hemodialysis Kt/V 76.2 * Elvia Frederick RN - 01/30/2024 5:10 AM CDT Received patient from ED to 410 per stretcher. documented in this encounter ED Notes * Lulú Kelly RN - 01/30/2024 4:36 AM CDT Patient's daughter Mina contacted by this RN and given bed number and update on patient status. Lulú Kelly RN 01/30/24 0437 * Julio Landeros DO - 01/29/2024 9:47 PM CDTAssociated Order(s): Critical Care Chief Complaint Patient presents with Arm Pain Nausea Vomiting HPI HPI Sixto Chakraborty is a 73 y.o. female w/ PMHx including HTN, HLD, DM Type II, dementia, CHF, anemia, GERD, ESRD, L rotator cuff tear, and neuropathy presenting to the ED w/ c/o L shoulder pain onset about 1x month ago. Pt denies any injury and had an MRI done today regarding her arm. Pt states she hasbeen taking Tylenol for pain. Pt also endorses black stools onset 1x week ago and pt's daughter reports an episode of coffee ground emesis last night. Pt also endorses cough and vomiting. Pt denies ABD pain, nausea, heartburn, fever, chills, cold, and any other associated symptoms. Pt reports she gets Dialysis T//Thu. Past Medical History: Diagnosis Date Anemia Arthritis [...] Social History Tobacco Use Smoking status: Never Smokeless tobacco: Never Substance and Sexual Activity Drug use: Never Sexual activity: Not Currently Partners: Male Alcohol Use: Not At Risk (12/18/2023) AUDIT-C Frequency of Alcohol Consumption: Never Average Number of Drinks: Patient does not drink Frequency of Binge Drinking: Not on file Review of Systems Review of Systems Constitutional: Negative for chills and fever. HENT: Negative for ear pain and sore throat. Eyes: Negative for pain and visual disturbance. Respiratory: Positive for cough. Negative for shortness of breath. Cardiovascular: Negative for chest pain and palpitations. Gastrointestinal: Positive for blood in stool (Black stools) and vomiting (Coffee ground emesis). Negative for abdominal pain. Genitourinary: Negative for dysuria and hematuria. Musculoskeletal: Positive for arthralgias (L shoulder). Negative for back pain. Skin: Negative for color change and rash. Neurological: Negative for seizures and syncope. All other systems reviewed and are negative. Physical Exam ED Triage Vitals Temp Pulse Resp BP SpO2 01/29/24181201/29/24 18101/29/24 18101/29/24 18101/29/24 181 36.7 ??C (98 ??F) 86 18 (!) 183/69 100 % Temp src Heart Rate Source Patient Position BP Location FiO2 (%) 01/29/24 1813 01/29/24 2355 01/29/24 2339 01/29/24 2339 -- Temporal Monitor Lying Right arm Height Height Method Weight Weight Method 01/29/24181201/29/24 18101/29/24 18101/29/24 181 1.575 m (5' 2 ) Stated 63.5 kg (140 lb) Standing scale Physical Exam Vitals and nursing note reviewed. Constitutional: General: She is not in acute distress. Appearance: She is well-developed. She is obese. HENT: Head: Normocephalic and atraumatic. Eyes: Conjunctiva/sclera: Conjunctivae normal. Cardiovascular: Rate and Rhythm: Normal rate and regular rhythm. Heart sounds: No murmur heard. Pulmonary: Effort: Pulmonary effort is normal. No respiratory distress. Breath sounds: Normal breath sounds. Abdominal: Palpations: Abdomen is soft. Tenderness: There is no abdominal tenderness. Comments: No stool on rectal exam. Pt has no ABD pain. Musculoskeletal: General: No swelling. Cervical back: Neck supple. Comments: Pt has L shoulder tenderness with ROM. Skin: General: Skin is warm and dry. Capillary Refill: Capillary refill takes less than 2 seconds. Neurological: Mental Status: She is alert. She is confused. Comments: Pt is AxO x2 and has a poor memory. Psychiatric: Mood and Affect: Mood normal. Critical Care Performed by: Julio Landeros DO Authorized by: Julio Landeros DO Critical care provider statement: As reflected in the history, physical exam, orders, notes, and/or MDM, I was personally present while the patient was critically ill and provided critical care services for 31 minutes, excluding timeinvolved in separately billable procedures. Critical care was necessary to treat or prevent imminent or life- threatening deterioration of the following condition(s): Upper GI bleed needing blood transfusion. I provided emergent necessary critical care medicine services to this patient. I ordered and reviewed test results and/or imaging studies. I spent time discussing the management of this critically ill patient with consultants and the medical staff. I spent time discussing the management and therapeutic options for this critically ill patient with the patient themselves or with the appropriate designated surrogate decision-maker. I spent time documenting in the medical record. Labs Reviewed URINALYSIS AND REFLEX TO MICROSCOPIC AND CULTURE - Abnormal Result Value Color, ur Straw Clarity, ur Clear Specific gravity, ur 1.007 pH, urine 7.0 Protein, ur ql 2+ (*) Glucose, ur ql Trace (*) Ketones, ur Negative Bilirubin, ur Negative Blood, ur Negative Urobilinogen, ur <2.0 Nitrite, ur Negative Leukocyte esterase, ur 2+ (*) UA reflex comment Reflex to microscopic UA will be performed. CBC WITH AUTO DIFFERENTIAL - Abnormal WBC 9.0 Hgb 7.4 (*) Hct 22.9 (*) Plt 322 MPV 10.0 RBC 2.34 (*) MCV 97.9 (*) MCH 31.6 MCHC 32.3 RDW CV 15.6 (*) RDW SD 55.9 (*) NRBC abs 0.00 COMPREHENSIVE METABOLIC PANEL - Abnormal Sodium 137 Potassium, pl 4.0 Chloride 96 (*) CO2 27 Anion gap 14 BUN 32 (*) Creatinine 3.10 (*) Glucose 172 Calcium 9.1 Bilirubin, total <0.2 Protein, pl 7.5 Albumin 4.0 Alk phos 124 ALT 15 AST 15 TROPONIN T HIGH-SENSITIVITY SERIES (BASELINE, 2HR, 4HR, 6HR) - Abnormal Trop T hs 102 (*) TROPONIN T HIGH-SENSITIVITY 2-HOUR - Abnormal Trop T hs 100 (*) Trop T hs pct delta -2 Trop T hs interp Insignificant TROPONIN T HIGH-SENSITIVITY 4-HR - Abnormal Trop T hs 101 (*) Trop T hs pct delta -1 Trop T hs interp Insignificant EGFR - Abnormal eGFR 15 (*) URINALYSIS, MICROSCOPIC ONLY - Abnormal WBC, ur 0-5 RBC, ur 0-2 Epithelial cells, squamous, ur 11-20 (*) Bacteria, ur Trace (*) Culture Reflex Comment Value: Reflex conditions for urine culture (WBC >10) not met. IRON PROFILE W/ IBC - Abnormal Iron 59 TIBC 182 (*) Transferrin saturation 32 FERRITIN - Abnormal Ferritin 624 (*) LIPASE Lipase 12 APTT aPTT 27 PROTIME-INR PT 12.6 INR 0.9 SEPSIS LACTATE WITH REFLEX Sepsis Lactate 0.9 DIFFERENTIAL AUTO Neutrophil abs 5.5 Imm gran abs 0.0 Lymphocyte abs 2.5 Monocyte abs 0.7 Eosinophil abs 0.2 Basophil abs 0.0 Neutrophil pct 60.7 Imm gran pct 0.3 Lymphocyte pct 28.3 Monocyte pct 8.2 Eosinophil pct 2.3 Basophil pct 0.2 TYPE AND SCREEN ABO/RH ABO/Rh B Positive Narrative: Has the patient had Daratumumab or Isatuximab in the past 6 months?->Unknown ANTIBODY SCREEN Regi, indirect, Gel Interpretation Negative ABSC Narrative: Has the patient had Daratumumab or Isatuximab in the past 6 months?->Unknown CROSSMATCH Crossmatch Compatible Unit number for crossmatch [id number] TROPONIN T HIGH-SENSITIVITY 6-HOUR PREPARE RBC Units requested 1 Units requested Ready Unit Number [id number] Product code [id number] Blood Expiration Date [id number] Product Blood Type (for scanning) 7300 Product Blood Type BPOS Dispense Status DISPENSED CTA Abdomen Pelvis Final Result XR Chest 1 Vw Portable Final Result BP (!) 191/69 Pulse 64 Temp 36.8 ??C (98.2 ??F) (Oral) Resp 13 Ht 157.5 cm (5' 2 ) Wt 63.5 kg (140 lb) SpO2 98% BMI 25.61 kg/m?? MDM Pt given 80mg protonix --- transfuse 1 unit of blood - rectal exam --no stool seen - given multiple blood pressure meds to get blood pressure better controlled ED Course as of 01/30/24 0205 Time: 01/28 2225 Comment: Spoke with Dr. Duvall, GI, who agrees to consult. By: Carmel Rushing Time: 01/29 2252 Comment: Spoke with Dr. Hanson, Nephrology, who agrees to consult on the pt. By: Carmel Rushing Time: 01/29 0151 Comment: Discussed pt's case w/ Dr. Tavera, Hospitalist, who agrees to accept the pt for an inpatient admission. Anticipate greater than 2 midnight admission. By: Carmel Rushing Final diagnoses: Upper GI bleeding Acute blood loss anemia Complete tear of left rotator cuff, unspecified whether traumatic Hypertension, unspecified type ESRD (end stage renal disease) on dialysis ([facility]) This note is prepared by Carmel Rushing, acting as a scribe for Julio Landeros MD. I electronically signed this note at 2:05 AM on 01/30/2024. I, Julio Landeros MD, have personally performed the services described in the documentation, reviewed and edited the documentation which was dictated to the scribe in my presence, and it accurately records my words and actions. Julio Landeros DO 01/30/24 0206 * Lucille Perkins RN - 01/29/2024 6:08 PM CDT Pt reports she is having L arm pain for 1-2 weeks. Blew to raise arm but causes pain. States she gets dialysis tues, thurs and sat. Denies injury. Had MRI done today regarding arm. Pt's daughter adds pt hasn't been feeling well for a couple weeks and has been having n/v and last night vomited coffee ground emesis. documented in this encounter Miscellaneous Notes * Provider Query - Michoacano Gibson MD - 02/01/2024 3:43 PM CDT Please specify the TYPE and ACUITY of Heart Failure, and document in the medical record and on the form below. Type _x__ Diastolic: Includes HFpEF (preserved) (LVEF >/= 50%) with consistent findings on echo or anelevated LVEDP in the presence of a normal or reduced LVEDV on cardiac catheterization ___ Combined Systolic and Diastolic ___ CHF is ruled out ___ CHF is a historical diagnosis only ___ Other, specify below ___ Clinically unable to determine Acuity _x__ Chronic (Compensated) ___ Acute on Chronic (Decompensated/Exacerbated) Additional Provider Response: As above Clinical Indicators/Treatments: Admitted 01/29/24 Anemia and possible GIB s/p blood transfusion Risk factors: ESRD, CHF, unspecified: HTN/HLD PROGRESS by Michoacano Gibson at 01/31/2024 12:30 73 y.o. year old female with history significant for HTN, HLD, DM Type II, dementia, CHF, anemia, GERD, ESRD T/Th/Sat., L rotator cuff tear, and neuropathy presenting to the ED w/ c/o L shoulder pain onset about 1x month ago. Reports melena over the last week, coffee-ground emesis. Admitted for GIbleed evaluation. ESRD noted. Elevated troponin no delta likely 2/2 decreased renal clearance in the setting ESRD. Severe acute on chronic Normocytic anemia noted. 1 unit PRBC ordered chest x-ray indicated mild pulmonary vascular congestion and mild bibasilar atelectasis. CTA abdomen and pelvis indicated constipation. No obstruction. No active site of bleeding No BNP. Transfused 1 unit PRBC's No edema noted in physical exams. PROGRESS by Michoacano Gibson at 01/31/2024 12:30 Medical comorbidities Hypertension/hyperlipidemia Diabetes mellitus type 2 Dementia CHF 10/30/23: TTE/ECHO: Interpretation Summary: The left ventricle is normal in size. There is mild concentric left ventricular hypertrophy. Ejection Fraction = 60-65%. Left ventricular systolic function is normal. Grade I diastolic dysfunction, (abnormal relaxation pattern). A bubble study shows no evidence of intracardiac [id number]-gj-ywlt shunting, i.e. no patent foramen ovale (PFO). Trace aortic regurgitation. Treatment: asa, Lipitor, carvedilol, hydralazine, nifedipine, continues home meds, monitor labs, VS. References: CHF Diagnostic Criteria CHF The commonly used Harmony Diagnostic Criteria for Heart Failure requires the presence of 2 major criteria or 1 major and 2 minor criteria to make the diagnosis of heart failure. MAJOR CRITERIA MINOR CRITERIA Acute Pulmonary Edema Cardiomegaly Hepatojugular Reflux Neck Vein Distention Paroxysmal Nocturnal Dyspnea/Orthopnea Ankle Edema Dyspnea on Exertion Hepatomegaly Nocturnal Cough Pleural Effusion Tachycardia: HR>120 bpm This diagnostic tool is highly sensitive for the diagnosis of heart failure but has a relatively low specificity There is no single, noninvasive diagnostic test that serves as a gold standard for HF, since it is largely a clinical diagnosis based upon a careful history, physical examination, laboratory, and imaging data. Diastolic dysfunction or systolic dysfunction without mention of heart failure is not considered heart failure. If a provider believes patient has CHF in the absence of above clinical indicators, please documentrationale and clinical impression in detail. If acute or acute/chronic CHF is suspected and no IV diuretics are provided, please provide detailed rationale regarding acuity. General CHF Documentation Practices To be reported accurately, all instances of CHF require documentation of both ACUITY and TYPE Acuity: Acute-- rapid onset of new or worsening signs and symptoms of HF Chronic Acute on Chronic (may also be documented as ???exacerbated?? or ???decompensated?? ) Type: Systolic Includes HFrEF (LVEF </= 40%) and HFmrEF (LVEF 40-49%) Diastolic (or HFpEF)--LVEF >/= 50% with consistent findings on echo or an elevated LVEDP in the presence of a normal or reduced LVEDV on cardiac catheterization Combined systolic and diastolic Right-sided HF-- may be due to systolic left-sided HF, RV cardiomyopathy, valvular disease or lung disease such as pulmonary HTN, PE, or COPD Document any of the following if applicable: Biventricular failure End stage heart failure (AHA/ACC classification stage D) Left ventricular heart failure Rheumatic heart failure CHF References: Heart failure: Clinical manifestations and diagnosis in adults - UpToDate The epidemiology of congestive heart failure: the Harmony Heart Study perspective - [facility] (nih.gov) Congestive Heart Failure - StatPearls - [facility] (nih.gov) Acute Heart Failure: Definition, Classification and Epidemiology - [facility] (nih.gov) From the ICD-10-CM Coding Guidelines, use of terms such as likely, suspected, possible, or probable(associated with a specific diagnosis that is being evaluated, monitored, or treated as if it exists) are acceptable and can be coded in the inpatient setting when documented at the time of discharge. This documentation will become part of the patient???s medical record. Sincerely, Radha Garsia RN, MSN, CDS * Plan of Care - Kim Alves RN - 02/01/2024 2:48 PM CDT Goals: Clinical Goals for the Shift: safety, tolerate diet Assisted Patient Centered Goal for Treatment: discharger to home with daughter Summary: Frequent safety checks and comfort rounds provided throughout shift. Safety maintained. Voiding without difficulty. No complaints of pain. Waiting on daughter to come sheepskin pickler. Discharging home with outpatient therapy per case management. Patient will get dialysis tomorrow. No complaints voiced at this time. Problem: Discharge Planning Goal: Understanding discharge needs will improve 02/01/2024 1242 by Kim Alves RN Outcome: Completed 02/01/2024 1026 by Kim Alves RN Flowsheets (Taken 01/30/2024 1029 by Mikayla Ndiaye, RN) Understanding of discharge needs will improve: Identify discharge learning needs (meds, wound care,etc.) Problem: Fall Risk Goal: Ability to state ways to decrease the risk of falls will improve 02/01/2024 1242 by Kim Alves RN Outcome: Completed 02/01/2024 1026 by Kim Alves RN Flowsheets (Taken 01/30/2024 1029 by Mikayla Ndiaye RN) Ability to state ways to decrease the risk of falls will improve: Teach fall prevention measures Teach information regarding appropriate enviornmental changes Goal: Will remain free from falls 02/01/2024 1242 by Kim Alves RN Outcome: Completed 02/01/2024 1026 by Kim Alves RN Flowsheets (Taken 02/01/2024 1006) Will remain free from falls: Assess risk factors for falls Implement fall prevention measures Collaborate with other disciplines Goal: Will remain free from injury from falls 02/01/2024 1242 by Kim Alves RN Outcome: Completed 02/01/2024 1026 by Kim Alves RN Flowsheets (Taken 01/30/2024 1029 by Mikayla Ndiaye RN) Will remain free from injury from falls: Provide safe environment for conduction of activities of daily living in hospital environment Problem: Skin Integrity Impairment Risk Goal: Mobility will improve 02/01/2024 1242 by Kim Alves RN Outcome: Completed 02/01/2024 1026 by Kim Alves RN Flowsheets (Taken 02/01/2024 1006) Mobility will improve: Collaborate with physical therapy Encourage ambulation Encourage turning and repositioning, assist as needed Encourage mobilization to extent of ability, assist with range of motion as needed Assess circulation, sensation and/or motion of extremity Goal: Understanding of ways to prevent future skin breakdown will improve 02/01/2024 1242 by Kim Alves RN Outcome: Completed 02/01/2024 1026 by Kim Alves RN Flowsheets (Taken 02/01/2024 1006) Understanding of ways to prevent future skin breakdown will improve: Discuss treatments to protect skin integrity Discuss treatment plan for related conditions Goal: Nutritional status will improve 02/01/2024 1242 by Kim Alves RN Outcome: Completed 02/01/2024 1026 by Kim Alves RN Flowsheets (Taken 02/01/2024 1006) Nutritional status will improve: Monitor intake and output Assess nutritional status Encourage nutritional intake Goal: Risk for impaired skin integrity will decrease 02/01/2024 1242 by Kim Alves RN Outcome: Completed 02/01/2024 1026 by Kim Alves RN Flowsheets (Taken 02/01/2024 1006) Risk for impaired skin integrity will decrease: Implement precautions to protect skin integrity Identify risk factors for impaired skin integrity and/or pressure injuries Perform cleansing of skin when soiled Provide moisture management and/or incontinence care Float heels off surface Monitor skin integrity, appearance and temperature Provide pressure-redistribution bed, mattress and/or chair cushion Problem: Lack of Knowledge Goal: Ability to describe self care measures that may prevent or decrease complications related to Type 2 Diabetes will improve Outcome: Completed Problem: Health Nutrition Goal: Nutritional intake and knowledge related to Diabetes will improve Outcome: Completed Problem: Respiratory Goal: Ability to maintain a clear airway will improve Outcome: Completed Problem: Musculoskeletal Goal: Return mobility to safest level of function Outcome: Completed Problem: Gastrointestinal Goal: Minimal or absence of nausea and vomiting Outcome: Completed Goal: Maintains adequate nutritional intake Outcome: Completed Goal: Will show no signs and symptoms of gastrointestinal bleeding Outcome: Completed Problem: Genitourinary Goal: Absence of urinary retention Outcome: Completed Problem: Infection Goal: Absence of infection during hospitalization Outcome: Completed Problem: Metabolic/Fluid and Electrolytes Goal: Electrolytes maintained within normal limits Outcome: Completed Goal: Hemodynamic stability and optimal renal function maintained Outcome: Completed Goal: Glucose maintained within prescribed range Outcome: Completed Problem: Hematologic Goal: Maintains hematologic stability Outcome: Completed Problem: Physical Regulation Description: Module scope: This module is for use by staff nurses caring for patients who receive hemodialysis. - This module is not intended to be all- inclusive and has been created for use by a wide variety of institutions with a multiplicity of available resources, patient populations, and specific needs. Goal: Complications related to the disease process, condition or treatment will be avoided or minimized Outcome: Completed Problem: Neurosensory Goal: Achieves stable or improved neurological status Outcome: Completed Goal: Achieves maximal functionality and self care Outcome: Completed Problem: Skin/Tissue Integrity Goal: Skin integrity remains intact Outcome: Completed Problem: Lack of Knowledge Goal: Ability to develop a pain control plan will improve Outcome: Completed Problem: Medication Goal: Satisfaction with pain management medication regimen will improve Outcome: Completed Problem: Sensory Goal: Ability to identify factors that increase pain levels will improve while working to decrease the patient's pain levels Outcome: Completed Problem: Coping Goal: Ability to cope will improve Outcome: Completed Problem: Health Behavior Goal: Identification of resources available to assist in meeting health care needs will improve Outcome: Completed * Initial Assessments - Mikayla Quinonez RN - 02/01/2024 11:52 AM CDT CM Initial Assessment Interview Note Information Obtained From: Patient (02/01/24 4925) Admission Source: ED from home Impression: Pt presented with c/o arm pain, coffee ground emesis. 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 Pt went home with OP PT at that time. Dx upper GIB. EGD completed 01/30. GI, Nephrology following. Plan Includes: Pt from home with daughter, uses walker. Pt daughter is paid caregiver. Pt has been doing OP PT at [facility]. Pt wants to continue OP PT at d/c. Daughter will transport home at d/c. Primary Source of Transportation: Does the patient need discharge transport arranged?: No (02/01/24 114) Health Insurance Coverage: Medicare Prescription Coverage: [facility] Pharmacy: [id number] - [place] - [address] & [place] [id number] Primary Care Provider: Duane Corcoran MD Prior to Admission: Functional Status: Moderate assist with ADLs Primary Caregiver: Family Support System: Children Home Care Services: Yes Type of Home Care Services: travelers' aid worker Home care service name and 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: Daughter is paid caregiver Outpatient Services: Yes Therapy: Physical Therapy Location: [facility] Durable Medical Equipment: Walker (no wheels) Living Arrangements: Children Type of Residence: Private residence (02/01/24 114) SDOH: Transportation: In the past 12 months, has lack of transportation kept you from medical appointments or from getting medications?: No In the past 12 months, has lack of transportation kept you from meetings, work, or from getting things needed for daily living?: No (02/01/241151) Financial Resource: How hard is it for you to pay for the very basics like food, housing, medical care, and heating?: Not very hard (02/01/241151) Housing: In the last 12 months, was there a time when you were not able to pay the mortgage or rent on time?: No In the past 12 months, how many times have you moved where you were living?: 0 At any time in the past 12 months, were you homeless or living in a mcc (including now)?: No (02/01/241151) Utilities: No, (02/01/241151) Social Connections: In a typical week, how many times do you talk on the phone with family, friends, or neighbors?: More than three times a week How often do you get together with friends or relatives?: More than three times a week How often do you attend restoration or episcopal services?: More than 4 times per year Do you belong to any clubs or organizations such as restoration groups, unions, fraternal or athletic groups, or school groups?: No How often do you attend meetings of the clubs or organizations you belong to?: Never Are you , , , , never , or living with a partner?: (02/01/24 1152) Food Insecurity: Within the past 12 months, you worried that your food would run out before you got the money to buymore.: Never true Within the past 12 months, the food you bought just didn't last and you didn't have money to get more.: Never true (02/01/24 1152) Dialysis: Dialysis History Start End Type Center Comments [facility] Information [facility] Address: [address] [place] [id number] Anticipated Level of Care: Anticipated discharge level of care: Private residence Pt/Family agrees with Anticipated Level of Care: Yes (02/01/24 1144) Patient expects to be Discharged to: Private residence, (02/01/24 1144) Patient's Identified Problem/Goal Problem: Ensure acute medical needs are met and that patient has a safe discharge plan. Goal: Secure a discharge plan that patient/family are agreeable with and ensure patient has continuum of care. Case management will follow for discharge planning and send referrals as needed. Goals include: To assure continuity of care, To maximize coping skills, To assure patient is in a safe environment and To assure access to community resources. Plan includes: 1. Collaboration with Patient, Provider, Direct Care Nurse, Draw Machine Operator, and other members of theHealth Care Team to assure needed interventions completed. 2. Return patient to optimal level of self-care post discharge. 3. Woodworking Shop Laborer will follow for Discharge Planning - interventions as needed 4. Anticipated level of care at discharge 5. Planned Discharge Disposition Mikayla Quinonez RN * Plan of Care - Bart Rodarte RN - 02/01/2024 6:53 AM CDT Goals: Clinical Goals for the Shift: patient safety, pain control Assisted Patient Centered Goal for Treatment: discharger to home with daughter Summary: no acute changes overnight. Pt had a restful night. Slept most of the night. Pending morning labs. Patient is alert to self and situation. Vitals stable as well * Plan of Care - Rose Spencer RN - 01/31/2024 3:50 PM CDT Problem: Discharge Planning Goal: Understanding discharge needs will improve Outcome: Progressing Problem: Fall Risk Goal: Ability to state ways to decrease the risk of falls will improve Outcome: Progressing Goal: Will remain free from falls Outcome: Progressing Goal: Will remain free from injury from falls Outcome: Progressing Problem: Skin Integrity Impairment Risk Goal: Mobility will improve Outcome: Progressing Goal: Understanding of ways to prevent future skin breakdown will improve Outcome: Progressing Goal: Nutritional status will improve Outcome: Progressing Goal: Risk for impaired skin integrity will decrease Outcome: Progressing Problem: Lack of Knowledge Goal: Ability to describe self care measures that may prevent or decrease complications related to Type 2 Diabetes will improve Outcome: Progressing Problem: Health Nutrition Goal: Nutritional intake and knowledge related to Diabetes will improve Outcome: Progressing Problem: Respiratory Goal: Ability to maintain a clear airway will improve Outcome: Progressing Problem: Musculoskeletal Goal: Return mobility to safest level of function Outcome: Progressing Problem: Gastrointestinal Goal: Minimal or absence of nausea and vomiting Outcome: Progressing Goal: Maintains adequate nutritional intake Outcome: Progressing Goal: Will show no signs and symptoms of gastrointestinal bleeding Outcome: Progressing Problem: Genitourinary Goal: Absence of urinary retention Outcome: Progressing Problem: Infection Goal: Absence of infection during hospitalization Outcome: Progressing Problem: Metabolic/Fluid and Electrolytes Goal: Electrolytes maintained within normal limits Outcome: Progressing Goal: Hemodynamic stability and optimal renal function maintained Outcome: Progressing Goal: Glucose maintained within prescribed range Outcome: Progressing Problem: Hematologic Goal: Maintains hematologic stability Outcome: Progressing Problem: Physical Regulation Description: Module scope: This module is for use by staff nurses caring for patients who receive hemodialysis. - This module is not intended to be all- inclusive and has been created for use by a wide variety of institutions with a multiplicity of available resources, patient populations, and specific needs. Goal: Complications related to the disease process, condition or treatment will be avoided or minimized Outcome: Progressing Problem: Neurosensory Goal: Achieves stable or improved neurological status Outcome: Progressing Goal: Achieves maximal functionality and self care Outcome: Progressing Problem: Skin/Tissue Integrity Goal: Skin integrity remains intact Outcome: Progressing Problem: Lack of Knowledge Goal: [...] Progressing Goals: Clinical Goals for the Shift: SAFETY COMFORT PAIN MANAGEMENT Assisted Patient Centered Goal for Treatment: discharger to home with daughter Summary: Assessment of patient???s baseline is established at the beginning of the shift in flowsheets. Patient reassessed per order, unexpected findings and/or deviations from baseline are captured in flowsheets. Frequent safety checks and comfort rounds provided. Orders and/or nursing care completed as indicated. Patient monitored for response to interventions and treatments as documented in flowsheets. . Plan of care discussed with patient/outside industrial sales representative, including as it relates to Principal Problem: Upper GI bleeding Active Problems: Coffee ground emesis Patient progressing. Clinical goals for the shift EGD, pain control. Education provided includes Fall Prevention. Patient and/or outside industrial sales representative Verbalizes understanding. Will continue to monitor. * Plan of Care - Dinora Felipe RN - 01/31/2024 3:15 AM CDT Problem: Discharge Planning Goal: Understanding discharge needs will improve Outcome: Progressing Problem: Fall Risk Goal: Ability to state ways to decrease the risk of falls will improve Outcome: Progressing Goal: Will remain free from falls Outcome: Progressing Goals: Clinical Goals for the Shift: SAFETY COMFORT PAIN MANAGEMENT Online Merchandising Manager Patient Centered Goal for Treatment: discharger to home with daughter * Plan of Care - Mikayla Ndiaye RN - 01/30/2024 10:29 AM CDT Goals: Clinical Goals for the Shift: MOnitoring of vitals, labs, pain management, comfort and safety Assisted Patient Centered Goal for Treatment: discharger to home with daughter Summary: * Plan of Care - Mikayla Ndiaye RN - 01/30/2024 8:28 AM CDT Goals: Clinical Goals for the Shift: MOnitoring of vitals, labs, pain management, comfort and safety Online Merchandising Manager Patient Centered Goal for Treatment: discharger to home with daughter Summary: * Incidental Note - Michoacano Gibson MD - 01/30/2024 7:13 AM CDT Admitted overnight by dustin 01/29 1:32 a.m. Sixto Chakraborty is a 73 y.o. year old female with history significant for HTN, HLD, DM Type II, dementia, CHF, anemia, GERD, ESRD T/Th/Sat., L rotator cuff tear, and neuropathy presenting to the ED w/c/o L shoulder pain onset about 1x month ago. Reports melena over the last week, coffee-ground emesis. Admitted for GI bleed evaluation. ESRD noted. Elevated troponin no delta likely 2/2 decreased renal clearance in the setting ESRD. Severe acute on chronic Normocytic anemia noted. 1 unit PRBC ordered chest x-ray indicated mild pulmonary vascular congestion and mild bibasilar atelectasis. CTA abdomen and pelvis indicated constipation. No obstruction. No active site of bleeding Overnight patient afebrile intermittently hypertensive which improved throughout the morning. 800 cc urine output over 24 hours. ESRD noted. Hemoglobin stable. GI evaluation recommendations pending.Continue Protonix Constitutional: NAD, comfortable, lying in bed Eyes: anicteric, vision grossly intact ENT: MMM Lungs: Normal depth and effort of breathing, on RA Heart: Regular, no murmur, no ankle edema. Left SC HD cath. Abd: +BS, Non Tender, Non distended : no indwelling joy catheter Neuro: No new deficits appreciated Musculoskeletal: ROM grossly intact Skin: warm dry Psychiatric: alert, oriented x3 Michoacano Gibson MD [facility] Hospitalist Internal Medicine * Plan of Care - Elvia Frederick RN - 01/30/2024 6:33 AM CDT Problem: Discharge Planning Goal: Understanding discharge needs will improve Outcome: Ongoing Problem: Fall Risk Goal: Ability to state ways to decrease the risk of falls will improve Outcome: Ongoing Flowsheets (Taken 01/30/2024507) Ability to state ways to decrease the risk of falls will improve: Teach fall prevention measures Goal: Will remain free from falls Outcome: Ongoing Flowsheets (Taken 01/30/2024507) Will remain free from falls: Assess risk factors for falls Implement fall prevention measures Goal: Will remain free from injury from falls Outcome: Ongoing Flowsheets (Taken 01/30/2024507) Will remain free from injury from falls: Provide safe environment for conduction of activities of daily living in hospital environment Problem: Skin Integrity Impairment Risk Goal: Mobility will improve Outcome: Ongoing Goal: Understanding of ways to prevent future skin breakdown will improve Outcome: Ongoing Goal: Nutritional status will improve Outcome: Ongoing Goal: Risk for impaired skin integrity will decrease Outcome: Ongoing Problem: Lack of Knowledge Goal: Ability to describe self care measures that may prevent or decrease complications related to Type 2 Diabetes will improve Outcome: Ongoing Problem: Health Nutrition Goal: Nutritional intake and knowledge related to Diabetes will improve Outcome: Ongoing Problem: Respiratory Goal: Ability to maintain a clear airway will improve Outcome: Ongoing Problem: Musculoskeletal Goal: Return mobility to safest level of function Outcome: Ongoing Problem: Gastrointestinal Goal: Minimal or absence of nausea and vomiting Outcome: Ongoing Goal: Maintains adequate nutritional intake Outcome: Ongoing Goal: Will show no signs and symptoms of gastrointestinal bleeding Outcome: Ongoing Problem: Genitourinary Goal: Absence of urinary retention Outcome: Ongoing Problem: Infection Goal: Absence of infection during hospitalization Outcome: Ongoing Problem: Metabolic/Fluid and Electrolytes Goal: Electrolytes maintained within normal limits Outcome: Ongoing Flowsheets (Taken 01/30/2024507) Electrolytes maintained within normal limits: Monitor labs and assess patient for signs and symptoms of electrolyte imbalances Monitor response to electrolyte replacements, including repeat lab results as appropriate Goal: Hemodynamic stability and optimal renal function maintained Outcome: Ongoing Flowsheets (Taken 01/30/2024 0508) Hemodynamic stability and optimal renal function maintained: Monitor labs and assess for signs and symptoms of volume excess or deficit Monitor intake, output and patient weight Goal: Glucose maintained within prescribed range Outcome: Ongoing Flowsheets (Taken 01/30/2024507) Glucose maintained within prescribed range: Assess for signs and symptoms of hyperglycemia and hypoglycemia, monitor glucose as ordered Administer ordered medications to maintain glucose within target range Problem: Hematologic Goal: Maintains hematologic stability Outcome: Ongoing Flowsheets (Taken 01/30/2024507) Maintains Hematologic Stability: Assess for signs and symptoms of bleeding or hemorrhage Monitor labs Goals: Clinical Goals for the Shift: MOnitoring of vitals, labs, pain management, comfort and safety Online Merchandising Manager Patient Centered Goal for Treatment: discharger to home with daughter Summary: Plan of care reviewed with patient. Unsure if patient fully understands is impulsive so bed alarm is in place and patient close to the desk. documented in this encounter Plan of Treatment Upcoming Encounters Date Type Department Care Team (Latest Contact Info) Description 07/13/2024 9:00 AM CARTON MAKING MACHINE OPERATOR Hospital Encounter [facility] [address] [place] [id number] Jaya Rivera MD [address] [place] [address] DR GAINES [address] [place] [id number] 07/13/2024 9:00 AM CARTON MAKING MACHINE OPERATOR - 07/13/2024 9:30 AM CARTON MAKING MACHINE OPERATOR Surgery [facility] [address] [place] [id number] Jaya Rivera MD [address] [place] [address] DR GAINES [address] [place] [id number] ESOPHAGOGASTRODUODENOSCOPY Scheduled Orders Name Type Priority Associated Diagnoses Order Schedule Surgical pathology Pathology and Cytology Timed Coffee ground emesis Release Upon Ordering for 1 Occurrences starting 01/31/2024 Scheduled Procedures Name Priority Associated Diagnoses Date/Ti me ESOPHAGOGASTRODUODENOSCOPY Anemia, unspecified type Gastritis without bleeding, unspecified chronicity, unspecified gastritis type 07/13/2024 9:00 AM CARTON MAKING MACHINE OPERATOR COLONOSCOPY Iron deficiency anemia due to chronic blood loss Scheduled Referrals Name Type Priority Associated Diagnoses Orde r Schedule Ambulatory referral order to Physical Therapy - Outpatient Referral Routine Unsteadiness on feet Syncope, unspecified syncope type Age-related physical debility Expected: 02/15/2024 (Approximate), Expires: 01/31/2025 documented as of this encounter Procedures Procedure Name Priority Date/Time Associated Diagnosis Comments POCT GLUCOSE DEVICE Routine 02/01/2024 12:12 PM CDT DIFFERENTIAL AUTO Timed 02/01/2024 12:05 PM CDT CBC WITH AUTO DIFFERENTIAL Timed 01/31 12:05 PM CDT POCT GLUCOSE DEVICE Routine 02/01/2024 7:25 AM CDT POCT GLUCOSE DEVICE Routine 01/31/2024 7:54 PM CDT POCT GLUCOSE DEVICE Routine 01/31/2024 5:13 PM CDT XR RADIUS ULNA LEFT 2 VIEWS IP Routine 01/20 3:39 PM CDT XR HUMERUS LEFT 2 OR MORE VIEWS IP Routine 01/31/2024 3:39 PM CDT XR SHOULDER LEFT 2 OR MORE VIEWS IP Routine 01/31/2024 3:39 PM CDT POCT GLUCOSE DEVICE Routine 01/31/2024 1:44 PM CDT SURGICAL PATHOLOGY Routine 01/31/2024 1:28 PM CDT ESOPHAGOGASTRODUODENOSCOPY BIOPSY 01/31/2024 1:05 PM CDT Coffee ground emesis EGD 01/31/2024 12:18 PM CDT POCT GLUCOSE DEVICE Routine 01/31/2024 11:25 AM CDT ECG 12-LEAD STAT 01/31/2024 11:06 AM CDT POCT GLUCOSE DEVICE Routine 01/31/2024 8:40 AM CDT EGFR Routine 01/31/2024 7:37 AM CDT DIFFERENTIAL AUTO Routine 01/31/2024 7:37 AM CDT CBC WITH AUTO DIFFERENTIAL Routine 01/30 7:37 AM CDT COMPREHENSIVE METABOLIC PANEL Routine 7:37 AM CDT POCT GLUCOSE DEVICE Routine 01/30/2024 10:12 PM CDT POCT GLUCOSE DEVICE Routine 01/30/2024 8:50 PM CDT POCT GLUCOSE DEVICE Routine 01/30/2024 4:49 PM CDT POCT GLUCOSE DEVICE Routine 01/30/2024 1:42 PM CDT HEMODIALYSIS Routine 01/30/2024 9:33 AM CDT POCT GLUCOSE DEVICE Routine 01/30/2024 8:35 AM CDT EGFR STAT 01/30/2024 8:34 AM CDT HEPATITIS B SURFACE ANTIGEN Routine 01/20 8:34 AM CDT CBC WITHOUT DIFFERENTIAL STAT 024 8:34 AM CDT COMPREHENSIVE METABOLIC PANEL STAT 8:34 AM CDT TROPONIN T HIGH-SENSITIVITY 6-HOUR Timed 01/30/2024 1:32 AM CDT TRANSFUSE RED BLOOD CELLS Timed 2023 11:40 PM CDT CTA ABDOMEN PELVIS W WO CONTRAST ED 01/29/2024 11:36 PM CDT PREPARE RBC Timed 01/29/2024 11:20 PM CDT TROPONIN T HIGH-SENSITIVITY 4-HR Timed 01/29/2024 10:28 PM CDT ABO/RH STAT 01/29/2024 10:28 PM CDT CROSSMATCH STAT 01/29/2024 10:28 PM CDT ANTIBODY SCREEN STAT 01/29/2024 10:28 PM CDT TYPE AND SCREEN STAT 01/29/2024 10:28 PM CDT [facility] ILL/INJURED PATIENT INIT 30-74 MIN Routine 01/29/2024 9:47 PM CDT TROPONIN T HIGH-SENSITIVITY 2-HOUR Timed 01/29/2024 8:58 PM CDT IRON PROFILE W/ IBC Timed 01/29/2024 8:58 PM CDT FERRITIN Timed 01/29/2024 8:58 PM CDT SEPSIS LACTATE WITH REFLEX STAT 01/28 7:52 PM CDT DIFFERENTIAL AUTO STAT 01/29/2024 7:52 PM CDT URINALYSIS AND REFLEX TO MICROSCOPIC AND CULTURE STAT 01/29/2024 7:52 PM CDT CBC WITH AUTO DIFFERENTIAL STAT 01/28 7:52 PM CDT URINALYSIS, MICROSCOPIC ONLY STAT 02/2024 7:52 PM CDT APTT STAT 01/29/2024 7:52 PM CDT PROTIME-INR STAT 01/29/2024 7:52 PM CDT XR CHEST 1 VIEW ED 01/29/2024 6:52 PM CDT TROPONIN T HIGH-SENSITIVITY SERIES (BASELINE, 2HR, 4HR, 6HR) STAT 01/29/2024 6:36 PM CDT EGFR STAT 01/29/2024 6:36 PM CDT LIPASE STAT 01/29/2024 6:36 PM CDT COMPREHENSIVE METABOLIC PANEL STAT 6:36 PM CDT ECG 12-LEAD STAT 01/29/2024 6:23 PM CDT documented in this encounter Results * POCT glucose (02/01/2024 12:12 PM CDT) [facility] Glucose, POC 100 70 - 199 mg/dL Comment:Testing performed by : [address] [address] Glucose comment 1 Use This Result NILSA RODRIGES Comment:Testing performed by : [address] [address] Glucose comment 2 RN/MD Notified NILSA RODRIGES Comment:Testing performed by : [address] [id number] Blood 02/01/2024 12:1 2 PM CDT 02/01/2024 12:12 PM CDT Michoacano Gibson MD LAB POCT ORDERABLES - DEVICE Final Result NILSA [address] [facility] [place] [address] * Differential, auto (02/01/2024 12:05 PM CDT) [facility] Neutrophil abs 5.2 1.5 - 6.5 K/cumm Comment:Testing performed by : [address] [address] Imm gran abs 0.0 0.0 - 0.1 K/cumm [facility] Comment:Testing performed by : [address], [place]., [address] Lymphocyte abs 1.9 0.8 - 3.3 K/cumm [facility] Comment:Testing performed by : [address], [place]., [address] Monocyte abs 0.5 0.2 - 0.8 K/cumm [facility] Comment:Testing performed by : [address], [place]., [address] Eosinophil abs 0.2 0.0 - 0.5 K/cumm [facility] Comment:Testing performed by : [address] [address] Basophil abs 0.0 0.0 - 0.1 K/cumm [facility] Comment:Testing performed by : [address] [address] Neutrophil pct 65.8 % [facility] Comment: Interpretive Data Percent cell count reference ranges are not reported, since discordance with absolute values may lead to misinterpretation of CBC data. Current Interpretive Data was last revised on 2017. Testing performed by: [address] [address] Imm gran pct 0.3 % [facility] Comment: Interpretive Data Percent cell count reference ranges are not reported, since discordance with absolute values may lead to misinterpretation of CBC data. Current Interpretive Data was last revised on 2017. Testing performed by: [address] [address] Lymphocyte pct 24.5 % [facility] Comment: Interpretive Data Percent cell count reference ranges are not reported, since discordance with absolute values may lead to misinterpretation of CBC data. Current Interpretive Data was last revised on 2017. Testing performed by: [address] [address] Monocyte pct 6.2 % [facility] Comment: Interpretive Data Percent cell count reference ranges are not reported, since discordance with absolute values may lead to misinterpretation of CBC data. Current Interpretive Data was last revised on 2017. Testing performed by: [address] [address] Eosinophil pct 2.7 % NILSA RODRIGES Comment: Interpretive Data Percent cell count reference ranges are not reported, since discordance with absolute values may lead to misinterpretation of CBC data. Current Interpretive Data was last revised on 2017. Testing performed by: [address] [address] Basophil pct 0.5 % NILSA RODRIGES Comment: Interpretive Data Percent cell count reference ranges are not reported, since discordance with absolute values may lead to misinterpretation of CBC data. Current Interpretive Data was last revised on 2017. Testing performed by: [address] [address] Blood 02/01/2024 12:0 5 PM CDT 02/01/2024 12:27 PM CDT Michoacano Gibson MD LAB BLOOD ORDERABLES Final Result NILSA [facility] Department [place] [address] * (ABNORMAL) CBC with auto differential (02/01/2024 12:05 PM CDT) WBC 7.9 3.8 - 9.9 K/cumm Comment:Testing performed by : [address] [address] Hgb 10.1(L) 11.9 - 15.5 g/dL NILSA RODRIGES Comment:Testing performed by : [address] [address] Hct 30.6(L) 35.6 - 45.5 % NILSA RODRIGES Comment:Testing performed by : [address] [address] Plt 269 150 - 400 K/cumm NILSA RODRIGES Comment:Testing performed by : [address] [address] MPV 10.1 9.1 - 12.3 fL NILSA RODRIGES Comment:Testing performed by : [address] [address] RBC 3.28(L) 3.90 - 5.20 M/cumm NILSA RODRIGES Comment:Testing performed by : [address] [address] MCV 93.3 81.3 - 96.4 fL NILSA RODRIGES Comment:Testing performed by : [address] [address] MCH 30.8 27.1 - 33.3 pg NILSA RODRIGES Comment:Testing performed by : [address] [address] MCHC 33.0 32.3 - 35.7 g/dL NILSA RODRIGES Comment:Testing performed by : [address] [address] RDW CV 15.7(H) 11.1 - 14.9 % NILSA RODRIGES Comment:Testing performed by : [address] [address] RDW SD 53.4(H) 35.7 - 48.1 fL NILSA Comment:Testing performed by : [address] [address] NRBC abs 0.00 0.00 - 0.01 K/cumm NILSA Comment:Testing performed by : [address] [address] Blood 02/01/2024 12:0 5 PM CDT 02/01/2024 12:27 PM CDT us Michoacano Gibson MD LAB BLOOD ORDERABLES Final Result NILSA [address] [facility] Department [place] [address] * POCT glucose (02/01/2024 7:25 AM CDT) [facility] Glucose, POC 83 70 - 199 mg/dL Comment:Testing performed by : [address], [address] Glucose comment 1 Use This Result NILSA RODRIGES Comment:Testing performed by : [address] [address] Glucose comment 2 RN/MD Notified NILSA Comment:Testing performed by : [address] [address] Blood 02/01/2024 7:25 AM CDT 02/01/2024 7:25 AM CDT Michoacano Gibson MD LAB POCT ORDERABLES - DEVICE Final Result Performing Organization Address [facility] Co de Phone Number NILSA [address] [address] * POCT glucose (01/31/2024 7:54 PM CDT) Glucose, POC 108 70 - 199 mg/dL Comment:Testing performed by : [address] [address] Glucose comment 1 Use This Result NILSA Comment:Testing performed by : [address] [address] Blood 01/31/2024 7:54 PM CDT 01/31/2024 7:54 PM CDT Michoacano Gibson MD LAB POCT ORDERABLES - DEVICE Final Result Performing Organization Address [facility] de Phone Number [address] [address] * POCT glucose (01/31/2024 5:13 PM CDT) Glucose, POC 105 70 - 199 mg/dL Comment:Testing performed by : [address] [address] Glucose comment 1 Use This Result NILSA Comment:Testing performed by : [address] [address] Blood 01/31/2024 5:13 PM CDT 01/31/2024 5:13 PM CDT us Michoacano Gibson MD LAB POCT ORDERABLES - DEVICE Final Result NILSA MH [address] [facility] Department [place] [address] * XR Radius Ulna Left 2 Views (01/31/2024 3:39 PM CDT) Anatomical Region Laterality Modality Upper Extremities, Forearm Left Compu bruno Radiography 01/31/2024 6:04 PM CDT Narrative 01/31/2024 6:07 PM CDT EXAM DESCRIPTION: XR HUMERUS LEFT 2 OR MORE VIEWS; XR RADIUS ULNA LEFT 2 VIEWS REASON FOR STUDY: Left humerus pain ?? ; Left forearm pain ?? TECHNIQUE: 2 ??radiographic view(s) of the ??left forearm . ??Two radiographic views of the left humerus. COMPARISON: None. FINDINGS: HUMERUS: BONES/JOINTS: ??No acute displaced fracture or dislocation. No aggressive-appearing lesion. SOFT TISSUES: ??No significant abnormality. FOREARM: BONES/JOINTS: ??No acute displaced fracture or dislocation. No aggressive-appearing lesion. ?? Enthesopathic changes of the triceps insertion. SOFT TISSUES: ??No significant abnormality. ?? Vascular calcifications. IMPRESSION: No acute osseous abnormality. THIS IS AN ELECTRONICALLY VERIFIED FINAL REPORT 01/31/2024 6:07 PM - Electronically signed by ??Aleksandar Shaw M.D. NS: NS D: ??01/31/2024 6:07 PM T: ??01/31/2024 6:07 PM Report ID: [id number] Reading Location: ??[id number] Procedure Note Aleksandar Shaw MD - 01/31/2024 EXAM DESCRIPTION: XR HUMERUS LEFT 2 OR MORE VIEWS; XR RADIUS ULNA LEFT 2VIEWS REASON FOR STUDY: Left humerus pain ; Left forearm pain TECHNIQUE: 2 radiographic view(s) of the left forearm . Tworadiographic views of the left humerus. COMPARISON: None. FINDINGS: HUMERUS: BONES/JOINTS: No acute displaced fracture or dislocation. No aggressive-appearing lesion. SOFT TISSUES: No significant abnormality. FOREARM: BONES/JOINTS: No acute displaced fracture or dislocation. No aggressive-appearing lesion. Enthesopathic changes of the tricepsinsertion. SOFT TISSUES: No significant abnormality. Vascular calcifications. IMPRESSION: No acute osseous abnormality. THIS IS AN ELECTRONICALLY VERIFIED FINAL REPORT 01/31/2024 6:07 PM - Electronically signed by Aleksandar Shaw M.D. NS: NS Report ID: [id number] Reading Location: [id number] Michoacano Gibson MD IMG XR PROCEDURES Fi nal Result * XR Humerus Left 2 or More Views (01/31/2024 3:39 PM CDT) Anatomical Region Laterality Modality Upper Extremities, Upper Arm Left Com puted Radiography 01/31/2024 6:04 PM CDT Narrative 01/31/2024 6:07 PM CDT EXAM DESCRIPTION: XR HUMERUS LEFT 2 OR MORE VIEWS; XR RADIUS ULNA LEFT 2 VIEWS REASON FOR STUDY: Left humerus pain ?? ; Left forearm pain ?? TECHNIQUE: 2 ??radiographic view(s) of the ??left forearm . ??Two radiographic views of the left humerus. COMPARISON: None. FINDINGS: HUMERUS: BONES/JOINTS: ??No acute displaced fracture or dislocation. No aggressive-appearing lesion. SOFT TISSUES: ??No significant abnormality. FOREARM: BONES/JOINTS: ??No acute displaced fracture or dislocation. No aggressive-appearing lesion. ?? Enthesopathic changes of the triceps insertion. SOFT TISSUES: ??No significant abnormality. ?? Vascular calcifications. IMPRESSION: No acute osseous abnormality. THIS IS AN ELECTRONICALLY VERIFIED FINAL REPORT 01/31/2024 6:07 PM - Electronically signed by ??Aleksandar Shaw M.D. NS: NS D: ??01/31/2024 6:07 PM T: ??01/31/2024 6:07 PM Report ID: [id number] Reading Location: ??[id number] Procedure Note Aleksandar Shaw MD - 01/31/2024 EXAM DESCRIPTION: XR HUMERUS LEFT 2 OR MORE VIEWS; XR RADIUS ULNA LEFT 2VIEWS REASON FOR STUDY: Left humerus pain ; Left forearm pain TECHNIQUE: 2 radiographic view(s) of the left forearm . Tworadiographic views of the left humerus. COMPARISON: None. FINDINGS: HUMERUS: BONES/JOINTS: No acute displaced fracture or dislocation. No aggressive-appearing lesion. SOFT TISSUES: No significant abnormality. FOREARM: BONES/JOINTS: No acute displaced fracture or dislocation. No aggressive-appearing lesion. Enthesopathic changes of the tricepsinsertion. SOFT TISSUES: No significant abnormality. Vascular calcifications. IMPRESSION: No acute osseous abnormality. THIS IS AN ELECTRONICALLY VERIFIED FINAL REPORT 01/31/2024 6:07 PM - Electronically signed by Aleksandar Shaw M.D. NS: NS Report ID: [id number] Reading Location: [place] [address] Michoacano Gibson MD IMG XR PROCEDURES Fi nal Result * XR Shoulder Left 2 or More Views (01/31/2024 3:39 PM CDT) Anatomical Region Laterality Modality Upper Extremities, Shoulder Left Comp uted Radiography 01/31/2024 6:02 PM CDT Narrative 01/31/2024 6:04 PM CDT EXAM DESCRIPTION: XR SHOULDER LEFT 2 OR MORE VIEWS REASON FOR STUDY: Left shoulder pain ?? TECHNIQUE: 3 ??radiographic view(s) of the left shoulder. COMPARISON: 12/29/2023 FINDINGS: BONES/JOINTS: ??No acute displaced fracture. No aggressive-appearing osseous lesion. ??No glenohumeral dislocation or acute acromioclavicular injury. ?? Degenerative changes of the glenohumeral and acromioclavicular joints. SOFT TISSUES: ??No significant abnormality. ?? Partially visualized right-sided central venous catheter. IMPRESSION: No acute osseous abnormality. THIS IS AN ELECTRONICALLY VERIFIED FINAL REPORT 01/31/2024 6:04 PM - Electronically signed by ??Aleksandar Shaw M.D. NS: NS D: ??01/31/2024 6:04 PM T: ??01/31/2024 6:04 PM Report ID: [id number] Reading Location: ??[id number] Procedure Note Aleksandar Shaw MD - 01/31/2024 EXAM DESCRIPTION: XR SHOULDER LEFT 2 OR MORE VIEWS REASON FOR STUDY: Left shoulder pain TECHNIQUE: 3 radiographic view(s) of the left shoulder. COMPARISON: 12/29/2023 FINDINGS: BONES/JOINTS: No acute displaced fracture. Noaggressive-appearing osseous lesion. No glenohumeral dislocation or acute acromioclavicular injury. Degenerative changes of the glenohumeral and acromioclavicular joints. SOFT TISSUES: No significant abnormality. Partially visualizedright-sided central venous catheter. IMPRESSION: No acute osseous abnormality. THIS IS AN ELECTRONICALLY VERIFIED FINAL REPORT 01/31/2024 6:04 PM - Electronically signed by Aleksandar Shaw M.D. NS: NS Report ID: [id number] Reading Location: [id number] us Michoacano Gibson MD IMG XR PROCEDURES Fi nal Result * POCT glucose (01/31/2024 1:44 PM CDT) [facility] Glucose, POC 100 70 - 199 mg/dL Comment:Testing performed by : [address] [address] Glucose comment 1 Use This Result NILSA RODRIGES Comment:Testing performed by : [address] [address] Blood 01/31/2024 1:44 PM CDT 01/31/2024 1:44 PM CDT us Michoacano Gibson MD LAB POCT ORDERABLES - DEVICE Final Result NILSA RODRIGES [address] [facility] Department [place] [address] * Surgical pathology (01/31/2024 1:28 PM CDT) Gastric/Stomach biopsy 01/31/2024 1:28 PM CDT 01/31/2024 1:50 PM CDT Narrative 02/02/2024 9:55 AM CDT [facility] Department of Pathology [address] [place] [id number] ?? Note to Patients: ??This report may [...] : ??1950 (Age: 73) Gender: ??F Address: ??[address] [place] [address] ??[address] [facility] #: [id number] Service: Medical Location: Patient Type: [facility] INPATIENT ? Taken: 01/31/2024 Received: 01/31/2024 Accessioned: 02/01/2024 Reported: 02/02/2024 Physician(s): Cinthia Maki M.D. Diagnosis: A. ??Stomach, antrum, biopsy ? - Normal antral mucosa ? - No H. pylori organisms are identified by H&E examination ? B. ??Stomach, body, biopsy ? - Normal oxyntic mucosa ? - No H. pylori organisms are identified by H&E examination Kami Harding MD Report Electronically Reviewed and Signed Out By ??Kami Harding MD 02/02/2024 09:55:54 Specimen(s) Received: A: Gastric Antrum bx B: Gastric Body bx Microscopic Description: Unless gross-only is specified, the final diagnosis for each specimen is based on a microscopic examination of each tissue sample. Clinical History: The patient is a 73-year-old woman with coffee-ground emesis. ??Operative procedure: ??Upper GI endoscopy with biopsy. Gross Description Received in two formalin jars labeled with the patient's identifiers. A. ??Labeled gastric antrum Bx are three fragments of soft, cowan tissue measuring 0.4 x 0.3 x 0.2 cm in aggregate. ??Labeled A 1. ??Jar 0. ?? B. ??Labeled gastric body Bx is one fragment of soft, cowan tissue measuring 0.3 x 0.3 x 0.2 cm. ??Labeled B 1. ??Jar 0. ? mr2b/02/01/2024 09:35 Maddie Crane MS, PA (ASC Microscopic slide review and interpretation for this case was performed at [facility], Department of Surgical Pathology, [address] [facility] [place], [place] [id number], ??[place], [place] ??[address] ?? CLIA # [id number] us Malcolm Duvall MD LAB PATHOLOGY ORDER ARIADNA Final Result * EGD (01/31/2024 12:18 PM CDT) Anatomical Region Laterality Modality Other Narrative Procedure Note Malcolm Duvall MD - 01/31/2024 12:18 PM CDT [facility] GI ENDOSCOPY Patient Name: Sixto Chakraborty Procedure Date: 01/31/2024 12:18 PM Date of : 1950 Admit Type: Inpatient Age: 73 Gender: Female Attending MD: Malcolm Marsh MD Room: [facility] ENDOSCOPY ROOM 01 Note Status: Finalized Procedure: Upper GI endoscopy Indications: Coffee-ground emesis Referring MD: Providers: Malcolm Duvall MD Medicines: Monitored Anesthesia Care Complications: No immediate complications. Estimated blood loss: Minimal. Estimated Blood Loss: Estimated blood loss was minimal. Procedure: Pre-Anesthesia Assessment: - Prior to the procedure, a History and Physicalwas performed, and patient medications and allergieswere reviewed. The patient is unable to give consent secondary to the patient's altered mental status.The risks and benefits of the procedure and thesedation options and risks were discussed with the patient's daughter. All questions were answered and informed consent was obtained. Patient identification and proposed procedure were verified by the physician,the nurse and the anesthesiologist in the procedureroom. Mental Status Examination: alert but confused.Airway Examination: normal oropharyngeal airway and neck mobility. Respiratory Examination: clear to auscultation. CV Examination: normal. Prophylactic Antibiotics: The patient does not requireprophylactic antibiotics. Prior Anticoagulants: The patient has taken no anticoagulant or antiplatelet agents. ASA Grade Assessment: III - A patient with severesystemic disease. After reviewing the risks and benefits,the patient was deemed in satisfactory condition to undergo the procedure. The anesthesia plan was touse monitored anesthesia care (MAC). Immediately priorto administration of medications, the patient was re-assessed for adequacy to receive sedatives. The heart rate, respiratory rate, oxygen saturations, blood pressure, adequacy of pulmonary ventilation,and response to care were monitored throughout the procedure. The physical status of the patient was re-assessed after the procedure. The benefits, risks, and alternatives to theprocedure and sedation were discussed and informed consentwas obtained. The scope was passed under direct vision. The GIF-H180J upper endoscope was introducedthrough the mouth, and advanced to the second part of duodenum. The upper GI endoscopy was accomplished without difficulty. The patient tolerated the procedure well. Findings: The Z-line was irregular. Inflammation characterized by erosions, erythema and friability was found in the entire examined stomach. Biopsies were taken with a cold forceps for Helicobacter pylori testing from the antrum and body. One biopsy site in the body was oozing but stopped withoutintervention. The examined duodenum was normal. Impression: - Z-line irregular. - Gastritis. Biopsied to rule out H pylori. Also considering gastritis secondary to iron pills. - Normal examined duodenum. Recommendation: - Return patient to the hospital bell for ongoingcare. - Continue to monitor for signs of GI bleeding and trend hemoglobin. Transfuse for hemoglobin lessthan 7-8. - Treat with pantoprazole 40 mg PO BID for 8weeks. - Start carafate 1 gram slurry PO QID for 8weeks. - Follow up with outpatient GI and repeat EGD in 8 weeks to check healing. - Follow up pathology. - Clear liquid diet without red dye. Malcolm Duvall M.D. Malcolm Duvall MD 01/31/2024 1:46:42 PM . Number of Addenda: 0 Note Initiated On: 01/31/2024 12:18 PM Recognized by the [employer] for promoting quality in endoscopy us Malcolm Duvall MD ENDOSCOPY PROCEDURE S Final Result * POCT glucose (01/31/2024 11:25 AM CDT) Glucose, POC 96 70 - 199 mg/dL Comment:Testing performed by : [address] [address] Blood 01/31/2024 11:2 5 AM CDT 01/31/2024 11:25 AM CDT Michoacano Gibson MD LAB POCT ORDERABLES - DEVICE Final Result Performing Organization Address City/[facility]/ZIP Co de Phone Number NILSA [address] [facility] Department [place] [address] * ECG 12 lead (01/31/2024 11:06 AM CDT) [facility] Ventricular Rate EKG/Min 78 BPM [facility] Atrial Rate 78 BPM [facility] [place]-Interval (MSEC) 164 ms [facility] QRS-Interval (MSEC) 70 ms [facility] QT-Interval (MSEC) 404 ms [facility] QTc 460 ms [facility] P [place] 77 degrees [facility] R [place] -11 degrees [facility] T [place] 63 degrees [facility] Diagnosis Normal sinus rhythm Normal ECG When compared with ECG of 29-JAN-2024 18:23, No significant change was found Confirmed by COLIN PINTO M.D. ([id number]) on 02/06/2024 5:59:05 PM [facility] 01/31/2024 11:0 6 AM CDT 02/06/2024 5:59 PM CDT Michoacano Gibson MD ECG ORDERABLES Blessing l Result Performing Organization Address [facility]/ZIP Co de Phone Number [facility] * POCT glucose (01/31/2024 8:40 AM CDT) [facility] Glucose, POC 98 70 - 199 mg/dL Comment:Testing performed by : [address] [address] Glucose comment 1 Use This Result NILSA Comment:Testing performed by : [address] [address] Blood 01/31/2024 8:40 AM CDT 01/31/2024 8:40 AM CDT us Michoacano Gibson MD LAB POCT ORDERABLES - DEVICE Final Result Performing Organization Address City/State/ZIP Co sd Phone Number CARLOS ENRIQUELSI [address] [facility] Department [place] [address] * (ABNORMAL) eGFR (01/31/2024 7:37 AM CDT) eGFR 16(L) >=60 mL/min/1. 73 m2 Comment: Interpretive Data [...] was last reviewed 2021. Testing performed by: [facility], [address] [place] [address], [place]., [address] Blood 01/31/2024 7:37 AM CDT 01/31/2024 8:26 AM CDT Herve Tavera MD LAB BLOOD ORDERABLES Final Result NILSA [address] [facility] Department of Laboratories [place], [place] [id number] * Differential, auto (01/31/2024 7:37 AM CDT) Neutrophil abs 4.0 1.5 - 6.5 K/cumm Comment:Testing performed by : [address] [address] Imm gran abs 0.0 0.0 - 0.1 K/cumm NILSA Comment:Testing performed by : [address] [address] Lymphocyte abs 2.4 0.8 - 3.3 K/cumm NILSA Comment:Testing performed by : [address] [address] Monocyte abs 0.6 0.2 - 0.8 K/cumm NILSA Comment:Testing performed by : [address] [address] Eosinophil abs 0.3 0.0 - 0.5 K/cumm NILSA Comment:Testing performed by : [address] [address] Basophil abs 0.0 0.0 - 0.1 K/cumm NILSA Comment:Testing performed by : [address] [address] Neutrophil pct 55.0 % NILSA Comment: Interpretive Data Percent cell count reference ranges are not reported, since discordance with absolute values may lead to misinterpretation of CBC data. Current Interpretive Data was last revised on 2017. Testing performed by: [address] [address] Imm gran pct 0.3 % NILSA Comment: Interpretive Data Percent cell count reference ranges are not reported, since discordance with absolute values may lead to misinterpretation of CBC data. Current Interpretive Data was last revised on 2017. Testing performed by: [address] [address] Lymphocyte pct 32.7 % NILSA Comment: Interpretive Data Percent cell count reference ranges are not reported, since discordance with absolute values may lead to misinterpretation of CBC data. Current Interpretive Data was last revised on 2017. Testing performed by: [address] [address] Monocyte pct 7.9 % NILSA Comment: Interpretive Data Percent cell count reference ranges are not reported, since discordance with absolute values may lead to misinterpretation of CBC data. Current Interpretive Data was last revised on 2017. Testing performed by: [address] [address] Eosinophil pct 3.8 % NILSA Comment: Interpretive Data Percent cell count reference ranges are not reported, since discordance with absolute values may lead to misinterpretation of CBC data. Current Interpretive Data was last revised on 2017. Testing performed by: [address] [address] Basophil pct 0.3 % NILSA Comment: Interpretive Data Percent cell count reference ranges are not reported, since discordance with absolute values may lead to misinterpretation of CBC data. Current Interpretive Data was last revised on 2017. Testing performed by: [address] [address] Blood 01/31/2024 7:37 AM CDT 01/31/2024 8:26 AM CDT Herve Tavera MD LAB BLOOD ORDERABLES Final Result [facility] [address] [facility] Department [place] [address] * (ABNORMAL) CBC with auto differential (01/31/2024 7:37 AM CDT) WBC 7.3 3.8 - 9.9 K/cumm Comment:Testing performed by : [address] [address] Hgb 8.5(L) 11.9 - 15.5 g/dL NILSA Comment:Testing performed by : [address] [address] Hct 25.8(L) 35.6 - 45.5 % NILSA Comment:Testing performed by : [address] [address] Plt 241 150 - 400 K/cumm NILSA Comment:Testing performed by : [address] [address] MPV 10.1 9.1 - 12.3 fL NILSA Comment:Testing performed by : [address] [address] RBC 2.76(L) 3.90 - 5.20 M/cumm NILSA Comment:Testing performed by : [address] [address] MCV 93.5 81.3 - 96.4 fL NILSA Comment:Testing performed by : [address] [address] MCH 30.8 27.1 - 33.3 pg NILSA Comment:Testing performed by : [address] [address] MCHC 32.9 32.3 - 35.7 g/dL NILSA Comment:Testing performed by : [address] [address] RDW CV 16.8(H) 11.1 - 14.9 % NILSA Comment:Testing performed by : [address], [address] RDW SD 56.7(H) 35.7 - 48.1 fL NILSA Comment:Testing performed by : [address] [address] NRBC abs 0.00 0.00 - 0.01 K/cumm NILSA Comment:Testing performed by : [address] [address] Blood 01/31/2024 7:37 AM CDT 01/31/2024 8:26 AM CDT us Herve Tavera MD LAB BLOOD ORDERABLES Final Result NILSA [address] [facility] Department [place] [address] * (ABNORMAL) Comprehensive metabolic panel (01/31/2024 7:37 AM CDT) Sodium 136 135 - 145 mmol/L Comment:Testing performed by : [address] [address] Potassium, pl 4.0 3.3 - 4.9 mmol/L NILSA Comment:Testing performed by : [address] [address] Chloride 98 97 - 110 mmol/L NILSA Comment:Testing performed by : [address] [address] CO2 26 22 - 32 mmol/L NILSA Comment:Testing performed by : [address] [address] Anion gap 12 2 - 15 mmol/L NILSA Comment:Testing performed by : [address] [address] BUN 19 6 - 25 mg/dL NILSA Comment:Testing performed by : [address] [address] Creatinine 3.00(H) 0.60 - 1.10 mg/dL NILSA Comment:Testing performed by : [address] [address] Glucose 79 70 - 199 mg/dL NILSA Comment: Interpretive [...] was last revised 2022. Testing performed by: [address] [address] Calcium 8.3(L) 8.5 - 10.3 mg/dL NILSA Comment:Testing performed by : [address] [address] Bilirubin, total 0.2 0.1 - 1.2 mg/dL NILSA Comment:Testing performed by : [address] [address] Protein, pl 6.0(L) 6.5 - 8.5 g/dL NILSA Comment:Testing performed by : [address], [place]., [address] Albumin 3.3(L) 3.5 - 5.0 g/dL NILSA Comment:Testing performed by : [address] [address] Alk phos 76 40 - 130 Units/L NILSA Comment:Testing performed by : [address] [address] ALT 10 7 - 45 Units/L NILSA Comment:Testing performed by : [address] [address] AST 9(L) 10 - 45 Units/L [facility] Comment:Testing performed by : [address] [address] Blood 01/31/2024 7:37 AM CDT 01/31/2024 8:26 AM CDT Herve Tavera MD LAB BLOOD ORDERABLES Final Result [facility] [address] [facility] Department [place] [address] * POCT glucose (01/30/2024 10:12 PM CDT) [facility] Signature Glucose, POC 185 70 - 199 mg/dL Comment:Testing performed by : [address] [address] Blood 01/30/2024 10:1 2 PM CDT 01/30/2024 10:12 PM CDT Michoacano Gibson MD LAB POCT ORDERABLES - DEVICE Final Result Performing Organization Address City/[facility] Co de Phone Number NILSA [address] [address] * (ABNORMAL) POCT glucose (01/30/2024 8:50 PM CDT) Glucose, POC 226(H) 70 - 199 mg/dL Comment:Testing performed by : [address] [address] Glucose comment 1 Use This Result NILSA Comment:Testing performed by : [address] [address] Blood 01/30/2024 8:50 PM CDT 01/30/2024 8:50 PM CDT Michoacano Gibson MD LAB POCT ORDERABLES - DEVICE Final Result Performing Organization Address [facility] de Phone Number CARLOS ENRI[address] [address] * POCT glucose (01/30/2024 4:49 PM CDT) Glucose, POC 156 70 - 199 mg/dL Comment:Testing performed by : [address] [address] Glucose comment 1 Use This Result NILSA Comment:Testing performed by : [address] [address] Blood 01/30/2024 4:49 PM CDT 01/30/2024 4:49 PM CDT Michoacano Gibson MD LAB POCT ORDERABLES - DEVICE Final Result Performing Organization Address City/[facility] Co de Phone Number NILSA [address] [address] * POCT glucose (01/30/2024 1:42 PM CDT) [facility] Glucose, POC 104 70 - 199 mg/dL Comment:Testing performed by : [address] [address] Glucose comment 1 Use This Result NILSA Comment:Testing performed by : [address] [address] Blood 01/30/2024 1:42 PM CDT 01/30/2024 1:42 PM CDT Michoacano Gibson MD LAB POCT ORDERABLES - DEVICE Final Result Performing Organization Address [facility] Co de Phone Number [place]OS [place]YLER [place] [address]89[address] [facility] [employer] [place] [address] * POCT glucose (01/30/2024 8:35 AM CDT) [facility] Glucose, POC 110 70 - 199 mg/dL Comment:Testing performed by : [address] [address] Glucose comment 1 Use This Result NILSA Comment:Testing performed by : [address] [address] Blood 01/30/2024 8:35 AM CDT 01/30/2024 8:35 AM CDT Michoacano Gibson MD LAB POCT ORDERABLES - DEVICE Final Result Performing Organization Address City/[facility] Co de Phone Number [address] [place] [address] * (ABNORMAL) eGFR (01/30/2024 8:34 AM CDT) [facility] eGFR 14(L) >=60 mL/min/1. 73 m2 Comment: Interpretive Data [...] was last reviewed 2021. Testing performed by: [facility], [address] [place] [address]., [address] Blood 01/30/2024 8:34 AM CDT 01/30/2024 9:07 AM CDT Janis Hanson MD LAB BLOOD ORDERABLES Final Res ult Performing Organization Address [facility] Co de Phone Number [address] [employer] [place] [address] * Hepatitis B Surface Antigen Blood (01/30/2024 8:34 AM CDT) HepBsAg Nonreactive Nonreactive Blood 01/30/2024 8:34 AM CDT 01/30/2024 10:19 AM CDT Janis Hanson MD LAB MICROBIOLOGY - GENERAL ORD ERABLES Final Result Performing Organization Address [facility]/ZIP Co de Phone Number [address] [employer] [place] [address] * (ABNORMAL) Comprehensive metabolic panel (01/30/2024 8:34 AM CDT) Sodium 140 135 - 145 mmol/L Comment:Testing performed by : [address] [address] Potassium, pl 4.1 3.3 - 4.9 mmol/L NILSA Comment:Testing performed by : [address] [address] Chloride 101 97 - 110 mmol/L [facility] Comment:Testing performed by : [address] [address] CO2 24 22 - 32 mmol/L NILSA Comment:Testing performed by : [address] [address] Anion gap 15 2 - 15 mmol/L NILSA Comment:Testing performed by : [address] [address] BUN 36(H) 6 - 25 mg/dL [facility] Comment:Testing performed by : [address] [address] Creatinine 3.30(H) 0.60 - 1.10 mg/dL [facility] Comment:Testing performed by : [address] [address] Glucose 111 70 - 199 mg/dL [facility] Comment: Interpretive Data Fasting glucose >/= 126 [...] was last revised 2022. Testing performed by: [address] [address] Calcium 8.8 8.5 - 10.3 mg/dL NILSA Comment:Testing performed by : [address] [address] Bilirubin, total 0.5 0.1 - 1.2 mg/dL NILSA Comment:Testing performed by : [address] [address] Protein, pl 6.8 6.5 - 8.5 g/dL NILSA RODRIGES Comment:Testing performed by : [address], [place]., [address] Albumin 3.6 3.5 - 5.0 g/dL NILSA Comment:Testing performed by : [address] [address] Alk phos 107 40 - 130 Units/L NILSA Comment:Testing performed by : [address] [address] ALT 14 7 - 45 Units/L NILSA Comment:Testing performed by : [address] [address] AST 12 10 - 45 Units/L NILSA Comment:Testing performed by : [address] [address] Blood 01/30/2024 8:34 AM CDT 01/30/2024 9:07 AM CDT us Janis Hanson MD LAB BLOOD ORDERABLES Final Res ult [facility] Department [place] [address] * (ABNORMAL) CBC without differential (01/30/2024 8:34 AM CDT) WBC 9.4 3.8 - 9.9 K/cumm Comment:Testing performed by : [address] [address] Hgb 9.6(L) 11.9 - 15.5 g/dL NILSA RODRIGES Comment:Testing performed by : [address] [address] Hct 28.5(L) 35.6 - 45.5 % NILSA Comment:Testing performed by : [address] [place]., [address] Plt 237 150 - 400 K/cumm NILSA RODRIGES Comment:Testing performed by : [address] [address] MPV 10.0 9.1 - 12.3 fL NILSA RODRIGES Comment:Testing performed by : [address] [address] RBC 3.05(L) 3.90 - 5.20 M/cumm NILSA RODRIGES Comment:Testing performed by : [address] [address] MCV 93.4 81.3 - 96.4 fL NILSA Comment:Testing performed by : [address] [address] MCH 31.5 27.1 - 33.3 pg NILSA RODRIGES Comment:Testing performed by : [address] [address] MCHC 33.7 32.3 - 35.7 g/dL NILSA Comment:Testing performed by : [address] [address] RDW CV 17.4(H) 11.1 - 14.9 % NILSA Comment:Testing performed by : [address] [address] RDW SD 58.7(H) 35.7 - 48.1 fL NILSA Comment:Testing performed by : [address] [address] NRBC abs 0.00 0.00 - 0.01 K/cumm NILSA Comment:Testing performed by : [address] [address] Blood 01/30/2024 8:34 AM CDT 01/30/2024 9:07 AM CDT us Janis Hanson MD LAB BLOOD ORDERABLES Final Res ult NILSA [address] [facility] Department of Laboratories [place], [place] [id number] * Transfuse RBC (01/30/2024 3:09 AM CDT) Blood Julio Loraineethan DO BLOOD TRANSFUSION ORDERABLES F inal Result Performing Organization Address [facility] Co de Phone Number NILSA [address] [facility] [place] [address] * Transfuse RBC: 1 Units (01/30/2024 3:09 AM CDT) Blood Julio Slowik DO BLOOD TRANSFUSION ORDERABLES F inal Result * (ABNORMAL) Troponin T high-sensitivity 6-hour (01/30/2024 1:32 AM CDT) Trop T hs 93(H) <=14 ng/L Comment: Ref Range High Interpretive Data For further hscTnT resources including the diagnostic algorithm and an aid in interpretation, copy and paste this link: https://nrl.testcatalog.org/show/hsTrop Current Interpretive Data last revised 2020. Testing performed by: [address] [address] Trop T hs pct delta -9 % NILSA Comment:Testing performed by : [address] [address] Trop T hs interp Equivocal NILSA Comment:Testing performed by : [address] [address] Blood 01/30/2024 1:32 AM CDT 01/30/2024 1:42 AM CDT Corinne Mesa [employer] LAB BLOOD ORDERABLES Final Resul t Performing Organization Address City/[facility] Co de Phone Number NILSA [address] [facility] [place] [address] * CTA Abdomen Pelvis (01/29/2024 11:36 PM CDT) Anatomical Region Laterality Modality Body N/A Computed Tomogra phy 01/30/2024 12:3 4 AM CDT Narrative 01/30/2024 12:43 AM CDT EXAM DESCRIPTION: ?? CTA ABDOMEN PELVIS REASON FOR STUDY: ?? GI bleed ?? Per ER Charge Olivia ??PT to get dialysis on sat during day prior to 10pm ? Triage note ??Pt reports she is having L arm pain for 1-2 weeks. Blew to raise arm but causes pain. States she gets dialysis tues, thurs and sat. Denies injury. Had MRI done today regarding arm. ?? Pt's daughter adds pt hasn't been feeling well for a couple weeks and has been having n/v and last night vomited coffee ground emesis. ? Md note ?Chief Complaint ?? Patient presents with ?? Arm Pain ?Nausea ?Vomiting ?HPI ??HPI ? Sixto Chakraborty is a 73 y.o. female w/ PMHx including HTN, HLD, DM Type II, dementia, CHF, anemia, GERD, ESRD, L rotator cuff tear, and neuropathy presenting to the ED w/ c/o L shoulder pain onset about 1x month ago. Pt denies any injury and had an MRI ?? done today regarding her arm. Pt states she has been taking Tylenol for pain. Pt also endorses black stools onset 1x week ago and pt's daughter reports an episode of coffee ground emesis last night. ??Pt also endorses cough and vomiting. Pt denies ABD ?? pain, nausea, heartburn, fever, chills, cold, and any other associated symptoms. Pt reports she gets Dialysis T/Th/Sat ?? TECHNIQUE: CTA scan of the abdomen and pelvis performed ??without and with ?? intravenous and ??without ??oral contrast using helical scanning technique with dynamic intravenous contrast injection. ??Precontrast, arterial, and portal venous phase images of the abdomen and pelvis were acquired. ?Images reviewed with lung, soft tissue and bone windows. Reconstructed coronal and sagittal MPR images reviewed. All images stored on PACS. ??3D MIP images rendered on scanning unit and reviewed at time of interpretation. ??Automated exposure control was used as a dose optimization technique for this examination. CONTRAST TYPE/DOSE: ?? 100mL of IOVERSOL 350 MG IODINE/ML INTRAVENOUS SYRINGE ?? injected via ?? intravenous COMPARISON: ?? 12/19/2019 FINDINGS: VASCULATURE: ?No dissection, aneurysm, intramural hematoma, rupture, or penetrating atherosclerotic ulcer. ?? No large vessel occlusion. CELIAC TRUNK: ?? No flow limiting stenosis, dissection, or aneurysm. SUPERIOR MESENTERIC ARTERY: ?? No flow limiting stenosis, dissection, or aneurysm. RIGHT RENAL ARTERY: ?? No flow limiting stenosis, dissection, or aneurysm. LEFT RENAL ARTERY: ?? No flow limiting stenosis, dissection, or aneurysm. INFERIOR MESENTERIC ARTERY: ?? No flow limiting stenosis, dissection, or aneurysm. AORTA: ?? No flow limiting stenosis, dissection, or aneurysm. ?? Minor atherosclerotic calcification is noted. ILIAC ARTERIES: ?? No flow limiting stenosis, dissection, or aneurysm. LOWER CHEST: ?? No significant pulmonary abnormalities. No effusion. LIVER: ?? Normal size. ??No identified cystic or solid masses. GALLBLADDER: ?? Unremarkable BILE DUCTS: ?? No intrahepatic or extrahepatic ductal dilatation. SPLEEN: ?? Normal size. ??No focal lesions. PANCREAS: ?? No identified cystic or solid masses. No significant calcifications. No adjacent inflammation or peripancreatic fluid collections. Pancreatic duct not dilated. ?? ADRENALS: ?? Normal. KIDNEYS/URINARY TRACT: ?? No identified significant cystic or solid masses. No stones. No hydronephrosis or hydroureter. Symmetric enhancement. ?Normal bladder. GI: ?? Prominent amount of stool is seen in the colon. ??This is particularly evident in the transverse and ascending colon. ??This may represent constipation. ??No dilated bowel is seen to suggest obstruction. ??Small bowel appears grossly unremarkable. ??The stomach appears unremarkable. PERITONEUM: ?? No ascites or free air. RETROPERITONEUM: ?? No mass or adenopathy. REPRODUCTIVE: ?? No significant abnormality. MUSCULOSKELETAL: ?? No significant abnormality. OTHER: ?? No other abnormality. IMPRESSION: ?? Prominent amount of stool in the colon may suggest constipation. No evidence obstruction is seen. No active site of hemorrhage is clearly identified. THIS IS AN ELECTRONICALLY VERIFIED FINAL REPORT 01/30/2024 12:43 AM - Electronically signed by ??Salvador Marques M.D. KH: ROSA MARIA D: ??01/30/2024 12:43 AM T: ??01/30/2024 12:43 AM Report ID: [id number] Reading Location: ??[id number] Procedure Note Salvador Marques MD - 01/30/2024 EXAM DESCRIPTION: CTA ABDOMEN PELVIS REASON FOR STUDY: GI bleed Per ER Charge Olivia PT to get dialysis on sat during day prior to 10pm Triage note Pt reports she is having L arm pain for 1-2 weeks. Blew toraise arm but causes pain. States she gets dialysis tues, thurs and sat. Denies injury. Had MRI done today regarding arm. Pt's daughter adds pt hasn'tbeen feeling well for a couple weeks and has been having n/v and last nightvomited coffee ground emesis. Md note Chief Complaint Patient presentswith Arm Pain Nausea Vomiting HPI HPI Sixto Chakraborty is a 73y.o. female w/ PMHx including HTN, HLD, DM Type II, dementia, CHF, anemia,GERD, ESRD, L rotator cuff tear, and neuropathy presenting to the ED w/ c/o L shoulder pain onset about 1x month ago. Pt denies any injury and had anMRI done today regarding her arm. Pt states she has been taking Tylenol forpain. Pt also endorses black stools onset 1x week ago and pt's daughter reportsan episode of coffee ground emesis last night. Pt also endorses cough and vomiting. Pt denies ABD pain, nausea, heartburn, fever, chills, cold,and any other associated symptoms. Pt reports she gets Dialysis T/Th/Sat TECHNIQUE: CTA scan of the abdomen and pelvis performed without and with intravenous and without oral contrast using helical scanning techniquewith dynamic intravenous contrast injection. Precontrast, arterial, and portal venous phase images of the abdomen and pelvis were acquired. Images reviewed with lung, soft tissue and bone windows. Reconstructed coronaland sagittal MPR images reviewed. All images stored on PACS. 3D MIP images rendered on scanning unit and reviewed at time of interpretation.Automated exposure control was used as a dose optimization technique for this examination. CONTRAST TYPE/DOSE: 100mL of IOVERSOL 350 MG IODINE/ML INTRAVENOUSSYRINGE injected via intravenous COMPARISON: 12/19/2019 FINDINGS: VASCULATURE: No dissection, aneurysm, intramural hematoma, rupture, or penetrating atherosclerotic ulcer. No large vesselocclusion. CELIAC TRUNK: No flow limiting stenosis, dissection, or aneurysm. SUPERIOR MESENTERIC ARTERY: No flow limiting stenosis, dissection, or aneurysm. RIGHT RENAL ARTERY: No flow limiting stenosis, dissection, or aneurysm. LEFT RENAL ARTERY: No flow limiting stenosis, dissection, or aneurysm. INFERIOR MESENTERIC ARTERY: No flow limiting stenosis, dissection, or aneurysm. AORTA: No flow limiting stenosis, dissection, or aneurysm. Minor atherosclerotic calcification is noted. ILIAC ARTERIES: No flow limiting stenosis, dissection, or aneurysm. LOWER CHEST: No significant pulmonary abnormalities. No effusion. LIVER: Normal size. No identified cystic or solid masses. GALLBLADDER: Unremarkable BILE DUCTS: No intrahepatic or extrahepatic ductal dilatation. SPLEEN: Normal size. No focal lesions. PANCREAS: No identified cystic or solid masses. No significant calcifications. No adjacent inflammation or peripancreatic fluidcollections. Pancreatic duct not dilated. ADRENALS: Normal. KIDNEYS/URINARY TRACT: No identified significant cystic or solid masses.No stones. No hydronephrosis or hydroureter. Symmetric enhancement. Normal bladder. GI: Prominent amount of stool is seen in the colon. This isparticularly evident in the transverse and ascending colon. This may represent constipation. No dilated bowel is seen to suggest obstruction. Smallbowel appears grossly unremarkable. The stomach appears unremarkable. PERITONEUM: No ascites or free air. RETROPERITONEUM: No mass or adenopathy. REPRODUCTIVE: No significant abnormality. MUSCULOSKELETAL: No significant abnormality. OTHER: No other abnormality. IMPRESSION: Prominent amount of stool in the colon may suggestconstipation. No evidence obstruction is seen. No active site of hemorrhage is clearly identified. THIS IS AN ELECTRONICALLY VERIFIED FINAL REPORT 01/30/2024 12:43 AM - Electronically signed by Salvador Marques M.D. KH: ROSA MARIA Report ID: [id number] Reading Location: [place] [address] Julio Landeros DO IM CT PROCEDURES Final Result * Prepare RBC: 1 Units (01/29/2024 11:20 PM CDT) Units requested 1 Comment:Testing performed by : [facility], [address] [place] [address]., [id number] Units requested Ready [facility] Comment:Testing performed by : [facility], [address] [place] [address]., [id number] Unit Number [id number] Product code [id number] [facility] Blood Expiration Date [facility] Product Blood Type (for scanning) 7300 [facility] Product Blood Type BPOS [facility] Dispense Status DISPENSED [facility] Blood 01/29/2024 11:2 0 PM CDT 01/29/2024 11:20 PM CDT [facility] BLOOD BANK PRODUCT ORDERABLES Final Result [address] [place] [address] * Crossmatch (01/29/2024 10:28 PM CDT) Crossmatch Compatible [facility] Unit number for crossmatch [id number] [facility] Blood 01/29/2024 10:2 8 PM CDT 01/29/2024 10:35 PM CDT Julio Mural[employer] LAB BLOOD BANK TEST ORDERABLES Final Result Performing Organization Address City/[facility]/ZIP Co de Phone Number [address] [address] * Antibody screen (01/29/2024 10:28 PM CDT) Regi, indirect, Gel Interpretation Negative ABSC Comment:Testing performed by : [facility], [address] [place] [address]., [id number] Blood 01/29/2024 10:2 8 PM CDT 01/29/2024 10:35 PM CDT Narrative [facility] - 01/29/2024 11:15 PM CDT Has the patient had Daratumumab or Isatuximab in the past 6 months?->Unknown [facility] LAB BLOOD BANK TEST ORDERABLES Final Result NILSA [address] [facility] [place] [address] * ABO/Rh (01/29/2024 10:28 PM CDT) ABO/Rh B Positive Comment:Testing performed by : [address] [address] Blood 01/29/2024 10:2 8 PM CDT 01/29/2024 10:35 PM CDT Narrative NILSA RODRIGES - 01/29/2024 11:15 PM CDT Has the patient had Daratumumab or Isatuximab in the past 6 months?->Unknown us Julio Landeros DO LAB BLOOD BANK TEST ORDERABLES Final Result Performing Organization Address [facility] de Phone Number CARLOS ENRIQUE[address] [address] * (ABNORMAL) Troponin T high-sensitivity 4-hour (01/29/2024 10:28 PM CDT) Pathologist [facility] Trop T hs 101(H) <=14 ng/L Comment: Ref Range High Interpretive Data For further hscTnT resources including the diagnostic algorithm and an aid in interpretation, copy and paste this link: https://nrl.testcatalog.org/show/hsTrop Current Interpretive Data last revised 2020. Testing performed by: [address] [address] Trop T hs pct delta -1 % NILSA Comment:Testing performed by : [address] [address] Trop T hs interp Insignificant NILSA Comment:Testing performed by : [address] [address] Blood 01/29/2024 10:2 8 PM CDT 01/29/2024 10:35 PM CDT us Corinne Mesa CANDY VENDOR LAB BLOOD ORDERABLES Final Resul t Performing Organization Address [facility]/ZIP Co de Phone Number NILSA [address] [facility] Department [place] [address] * [place] CRITICAL CARE ILL/INJURED PATIENT INIT 30-74 MIN (01/29/2024 9:47 PM CDT) Narrative Julio Landeros DO - 01/29/2024 9:47 PM CDT Julio Landeros, ? 01/30/2024 ??2:06 AM Critical Care Performed by: Julio Landeros DO Authorized by: Julio Landeros DO ?? Critical care provider statement: As reflected in the history, physical exam, orders, notes, and/or MDM, I was personally present while the patient was critically ill and provided critical care services for 31 minutes, excluding time involved in separately billable procedures. ??Critical care was necessary to treat or prevent imminent or life-threatening deterioration of the following condition(s): ?? Upper GI bleed needing blood transfusion. ?? I provided emergent necessary critical care medicine services to this patient. I ordered and reviewed test results and/or imaging studies. I spent time discussing the management of this critically ill patient with consultants and the medical staff. I spent time discussing the management and therapeutic options for this critically ill patient with the patient themselves or with the appropriate designated surrogate decision-maker. I spent time documenting in the medical record. us Julio Landeros DO IN CLINIC/BEDSIDE ORDERABLES F inal Result * (ABNORMAL) Ferritin (01/29/2024 8:58 PM CDT) Ferritin 624(H) 15 - 150 ng/mL Comment:Testing performed by : [facility], [address] [place] [address]., [id number] Blood 01/29/2024 8:58 PM CDT 01/29/2024 9:02 PM CDT Julio Landeros DO LAB BLOOD ORDERABLES Final Res ult Performing Organization Address [facility]/ZIP Co de Phone Number NILSA [address] [facility] Department [place] [address] * (ABNORMAL) Iron profile w/ IBC (01/29/2024 8:58 PM CDT) Iron 59 35 - 145 mcg/dL Comment:Testing performed by : [address] [address] TIBC 182(L) 250 - 400 mcg/dL NILSA RODRIGES Comment:Testing performed by : [address] [address] Transferrin saturation 32 20 - 50 % NILSA RODRIGES Comment:Testing performed by : [address] [address] Blood 01/29/2024 8:58 PM CDT 01/29/2024 9:02 PM CDT us Julio Landeros DO LAB BLOOD ORDERABLES Final Res ult Performing Organization Address [facility] Co de Phone Number NILSA [facility] Department [place] [address] * (ABNORMAL) Troponin T high-sensitivity 2-hour (01/29/2024 8:58 PM CDT) Trop T hs 100(H) <=14 ng/L Comment: Ref Range High Interpretive Data For further hscTnT resources including the diagnostic algorithm and an aid in interpretation, copy and paste this link: https://nrl.testcatalog.org/show/hsTrop Current Interpretive Data last revised 2020. Testing performed by: [address] [address] Trop T hs pct delta -2 % NILSA RODRIGES Comment:Testing performed by : [address] [address] Trop T hs interp Insignificant NILSA RODRIGES Comment:Testing performed by : [address] [address] Blood 01/29/2024 8:58 PM CDT 01/29/2024 9:02 PM CDT Corinne Mesa CANDY VENDOR LAB BLOOD ORDERABLES Edited Resu lt - Final Performing Organization Address City/[facility] Co de Phone Number [place] [address] [facility] [place] [address] * (ABNORMAL) Urinalysis, microscopic only (01/29/2024 7:52 PM CDT) WBC, ur 0-5 0 - 5 /HPF Comment:Testing performed by : [address] [address] RBC, ur 0-2 0 - 2 /HPF NILSA Comment:Testing performed by : [address] [address] Epithelial cells, squamous, ur 11-20(A) 0 - 5 /HPF NILSA Comment:Testing performed by : [address] [address] Bacteria, ur Trace(A) NILSA Comment:Testing performed by : [address] [address] Culture Reflex Comment Reflex conditions for urine culture (WBC >10) not met. NILSA Comment:Testing performed by : [address] [address] Urine 01/29/2024 7:52 PM CDT 01/29/2024 8:12 PM CDT Kiley CUEVA LAB URINE ORDERABLES F inal Result Performing Organization Address [facility] Co de Phone Number [address] [place] [address] * Differential, auto (01/29/2024 7:52 PM CDT) Pathologist [facility] Neutrophil abs 5.5 1.5 - 6.5 K/cumm Comment:Testing performed by : [address] [address] Imm gran abs 0.0 0.0 - 0.1 K/cumm NILSA Comment:Testing performed by : [address] [address] Lymphocyte abs 2.5 0.8 - 3.3 K/cumm NILSA Comment:Testing performed by : [address] [address] Monocyte abs 0.7 0.2 - 0.8 K/cumm [facility] Comment:Testing performed by : [address], [place]., [address] Eosinophil abs 0.2 0.0 - 0.5 K/cumm [facility] Comment:Testing performed by : [address] [address] Basophil abs 0.0 0.0 - 0.1 K/cumm [facility] Comment:Testing performed by : [address] [address] Neutrophil pct 60.7 % [facility] Comment: Interpretive Data Percent cell count reference ranges are not reported, since discordance with absolute values may lead to misinterpretation of CBC data. Current Interpretive Data was last revised on 2017. Testing performed by: [address] [address] Imm gran pct 0.3 % [facility] Comment: Interpretive Data Percent cell count reference ranges are not reported, since discordance with absolute values may lead to misinterpretation of CBC data. Current Interpretive Data was last revised on 2017. Testing performed by: [address] [address] Lymphocyte pct 28.3 % [facility] Comment: Interpretive Data Percent cell count reference ranges are not reported, since discordance with absolute values may lead to misinterpretation of CBC data. Current Interpretive Data was last revised on 2017. Testing performed by: [address] [address] Monocyte pct 8.2 % [facility] Comment: Interpretive Data Percent cell count reference ranges are not reported, since discordance with absolute values may lead to misinterpretation of CBC data. Current Interpretive Data was last revised on 2017. Testing performed by: [address] [address] Eosinophil pct 2.3 % [facility] Comment: Interpretive Data Percent cell count reference ranges are not reported, since discordance with absolute values may lead to misinterpretation of CBC data. Current Interpretive Data was last revised on 2017. Testing performed by: [address] [address] Basophil pct 0.2 % NILSA Comment: Interpretive Data Percent cell count reference ranges are not reported, since discordance with absolute values may lead to misinterpretation of CBC data. Current Interpretive Data was last revised on 2017. Testing performed by: [address] [address] Blood 01/29/2024 7:52 PM CDT 01/29/2024 8:11 PM CDT Kiley CUEVA LAB BLOOD ORDERABLES F inal Result Performing Organization Address [facility] Co de Phone Number [address] [place] [address] * Sepsis Lactate w/ Reflex (01/29/2024 7:52 PM CDT) Pathologist [facility] Sepsis Lactate 0.9 0.7 - 2.0 mmol/L Comment:Testing performed by : [address] [address] Blood 01/29/2024 7:52 PM CDT 01/29/2024 8:11 PM CDT Julio Landeros DO LAB BLOOD ORDERABLES Final Res ult Performing Organization Address [facility] Co de Phone Number [address] [place] [address] * Protime-INR (01/29/2024 7:52 PM CDT) PT 12.6 12.0 - 14.6 sec Comment:Testing performed by : [address] [address] INR 0.9 0.9 - 1.2 NILSA Comment: Ref Range High Interpretive data Oral anticoagulant therapeutic ranges: Venous thromboembolism prophylaxis or treatment: 2.0-3.0 CARDIOLOGY Standard range: 2.0-3.0 High-intensity range: 2.5-3.5 Refer to indication-specific guidelines for appropriate target ranges for prosthetic heart valve replacement. Current interpretive data was last revised on 2019. Testing performed by: [address] [address] Blood 01/29/2024 7:52 PM CDT 01/29/2024 8:11 PM CDT [facility] LAB BLOOD ORDERABLES Final Resul t Performing Organization Address [facility] de Phone Number [address] [address] * aPTT (01/29/2024 7:52 PM CDT) aPTT 27 22 - 37 sec Comment: Interpretive data aPTT test has not been evaluated for monitoring heparin therapy. The anti-Xa is the preferred test. Current interpretive data was last revised on 2019. Testing performed by: [address] [address] Blood 01/29/2024 7:52 PM CDT 01/29/2024 8:11 PM CDT [facility] LAB BLOOD ORDERABLES Final Resul t Performing Organization Address [facility] de Phone Number [place] [id number] [place] [address] * (ABNORMAL) Urinalysis reflex to microscopic and culture Urine (01/29/2024 7:52 PM CDT) Color, ur Straw Yellow Comment:Testing performed by : [address] [address] Clarity, ur Clear Clear NILSA Comment:Testing performed by : [address] [address] Specific gravity, ur 1.007 1.003 - 1.030 NILSA Comment:Testing performed by : [address] [place]., [address] pH, urine 7.0 NILSA Comment: Interpretive Data ? Urine pH is affected by diet, medications, systemic acid-base disturbances, and renal tubular function. ??pH may affect urinary stone formation. ??For example, urine pH below 6.0 may help reduce the tendency for calcium phosphate stones and pH greater than 6.0 may reduce the tendency for uric acid stone formation. Source: [facility] [place] Current Interpretive Data was last revised on 2017 Testing performed by: [facility], [address] [place] [address], [place]., [address] Protein, ur ql 2+(A) Negative NILSA Comment:Testing performed by : [address], [place]., [address] Glucose, ur ql Trace(A) Negative NILSA Comment:Testing performed by : [address], [place]., [address] Ketones, ur Negative Negative NILSA Comment:Testing performed by : [address] [address] Bilirubin, ur Negative Negative NILSA Comment:Testing performed by : [address], [place]., [address] Blood, ur Negative Negative NILSA Comment:Testing performed by : [address], [place]., [address] Urobilinogen, ur <2.0 <2.0 mg/dL NILSA Comment:Testing performed by : [address] [address] Nitrite, ur Negative Negative NILSA Comment:Testing performed by : [address] [address] Leukocyte esterase, ur 2+(A) Negative NILSA Comment:Testing performed by : [address] [address] UA reflex comment Reflex to microscopic UA will be performed. NILSA Comment:Testing performed by : [address], [place]., [address] Urine 01/29/2024 7:52 PM CDT 01/29/2024 8:11 PM CDT us Julio Landeros DO LAB MICROBIOLOGY - GENERAL ORD ERABLES Final Result NILSA [address] [facility] Department [place] [address] * (ABNORMAL) CBC with auto differential (01/29/2024 7:52 PM CDT) WBC 9.0 3.8 - 9.9 K/cumm Comment:Testing performed by : [address] [address] Hgb 7.4(L) 11.9 - 15.5 g/dL NILSA Comment:Testing performed by : [address] [address] Hct 22.9(L) 35.6 - 45.5 % NILSA Comment:Testing performed by : [address] [address] Plt 322 150 - 400 K/cumm NILSA Comment:Testing performed by : [address] [address] MPV 10.0 9.1 - 12.3 fL NILSA Comment:Testing performed by : [address] [address] RBC 2.34(L) 3.90 - 5.20 M/cumm NILSA Comment:Testing performed by : [address] [address] MCV 97.9(H) 81.3 - 96.4 fL NILSA Comment:Testing performed by : [address] [address] MCH 31.6 27.1 - 33.3 pg NILSA Comment:Testing performed by : [address] [address] MCHC 32.3 32.3 - 35.7 g/dL NILSA Comment:Testing performed by : [address] [address] RDW CV 15.6(H) 11.1 - 14.9 % NILSA Comment:Testing performed by : [address] [address] RDW SD 55.9(H) 35.7 - 48.1 fL NILSA RODRIGES Comment:Testing performed by : [address] [address] NRBC abs 0.00 0.00 - 0.01 K/cumm NILSA RODRIGES Comment:Testing performed by : [address] [address] Blood (Blood, Venous) 01/29/2024 7:52 PM CDT 01/29/2024 8:11 PM CDT us Julio Landeros DO LAB BLOOD ORDERABLES Final Res ult NILSA RODRIGES [facility] [place] [address] * XR Chest 1 Vw Portable (01/29/2024 6:52 PM CDT) Anatomical Region Laterality Modality Body, Chest N/A Computed Radiogr aphy 01/29/2024 7:07 PM CDT Narrative 01/29/2024 7:20 PM CDT EXAM DESCRIPTION: XR CHEST 1 VIEW REASON FOR STUDY: weakness ?? Pt's daughter adds pt hasn't been feeling well for a couple weeks and has been having n/v and last night vomited coffee ground emesis. ? TECHNIQUE: Frontal ??radiographic view(s) of the chest. COMPARISON: 12/19/2023 FINDINGS: LUNGS: Mild pulmonary vascular congestion and mild bibasilar atelectasis. ?? No focal opacity, pleural effusion, or pneumothorax. ?? HEART/MEDIASTINUM: ??Cardiac silhouette is at the upper limits of normal in size. Mediastinal and hilar contours appear normal. LINES/TUBES: ??Right internal jugular central venous catheter with tip overlying the superior cavoatrial junction. BONES: ??No acute osseous abnormality. IMPRESSION: 1.Mild pulmonary vascular congestion and mild bibasilar atelectasis. THIS IS AN ELECTRONICALLY VERIFIED FINAL REPORT 01/29/2024 7:20 PM - Electronically signed by ??Loc Jon M.D. AT: AT D: ??01/29/2024 7:20 PM T: ??01/29/2024 7:20 PM Report ID: [id number] Reading Location: ??[id number] Procedure Note Loc Jon MD - 01/29/2024 EXAM DESCRIPTION: XR CHEST 1 VIEW REASON FOR STUDY: weakness Pt's daughter adds pt hasn't been feeling well for a couple weeks and hasbeen having n/v and last night vomited coffee ground emesis. TECHNIQUE: Frontal radiographic view(s) of the chest. COMPARISON: 12/19/2023 FINDINGS: LUNGS: Mild pulmonary vascular congestion and mild bibasilar atelectasis. No focal opacity, pleural effusion, or pneumothorax. HEART/MEDIASTINUM: Cardiac silhouette is at the upper limits of normal in size. Mediastinal and hilar contours appear normal. LINES/TUBES: Right internal jugular central venous catheter with tip overlying the superior cavoatrial junction. BONES: No acute osseous abnormality. IMPRESSION: 1.Mild pulmonary vascular congestion and mild bibasilar atelectasis. THIS IS AN ELECTRONICALLY VERIFIED FINAL REPORT 01/29/2024 7:20 PM - Electronically signed by Loc Jon M.D. AT: AT Report ID: [id number] Reading Location: [place] [address] Corinne Mesa NP IM XR PROCEDURES Final Result * (ABNORMAL) eGFR (01/29/2024 6:36 PM CDT) eGFR 15(L) >=60 mL/min/1. 73 m2 [...] was last reviewed 2021. Testing performed by: [address] [address] Blood 01/29/2024 6:36 PM CDT 01/29/2024 6:39 PM CDT us Julio Landeros DO LAB BLOOD ORDERABLES Final Res ult NILSA [address] [facility] [place] [address] * (ABNORMAL) Troponin T high-sensitivity series (baseline, 2hr, 4hr, 6hr) (01/29/2024 6:36 PM CDT) Trop T hs 102(H) <=14 ng/L Comment: Ref Range High Interpretive Data For further hscTnT resources including the diagnostic algorithm and an aid in interpretation, copy and paste this link: [email or web address] Current Interpretive Data last revised 2020. Testing performed by: [address] [address] Blood 01/29/2024 6:36 PM CDT 01/29/2024 6:51 PM CDT Corinne Mesa CANDY VENDOR LAB BLOOD ORDERABLES Final Resul t Performing Organization Address City/[facility] Co de Phone Number CARLOS ENRI[address] [address] * Lipase (01/29/2024 6:36 PM CDT) Lipase 12 10 - 99 Units/L Comment:Testing performed by : [address] [address] Blood (Blood, Venous) 01/29/2024 6:36 PM CDT 01/29/2024 6:39 PM CDT us Julio Landeros DO LAB BLOOD ORDERABLES Final Res ult Performing Organization Address [facility] Co de Phone Number [address] [address] * (ABNORMAL) Comprehensive metabolic panel (01/29/2024 6:36 PM CDT) Pathologist [facility] Sodium 137 135 - 145 mmol/L Comment:Testing performed by : [address] [address] Potassium, pl 4.0 3.3 - 4.9 mmol/L NILSA Comment:Testing performed by : [address] [address] Chloride 96(L) 97 - 110 mmol/L NILSA Comment:Testing performed by : [address] [address] CO2 27 22 - 32 mmol/L NILSA Comment:Testing performed by : [address] [address] Anion gap 14 2 - 15 mmol/L NILSA Comment:Testing performed by : [address] [address] BUN 32(H) 6 - 25 mg/dL NILSA Comment:Testing performed by : [address] [address] Creatinine 3.10(H) 0.60 - 1.10 mg/dL NILSA Comment:Testing performed by : [address] [address] Glucose 172 70 - 199 mg/dL NILSA Comment: Interpretive [...] was last revised 2022. Testing performed by: [address] [address] Calcium 9.1 8.5 - 10.3 mg/dL NILSA Comment:Testing performed by : [address] [address] Bilirubin, total <0.2 0.1 - 1.2 mg/dL NILSA Comment:Testing performed by : [address] [address] Protein, pl 7.5 6.5 - 8.5 g/dL NILSA Comment:Testing performed by : [address] [address] Albumin 4.0 3.5 - 5.0 g/dL NILSA Comment:Testing performed by : [address] [address] Alk phos 124 40 - 130 Units/L NILSA Comment:Testing performed by : [address] [address] ALT 15 7 - 45 Units/L NILSA Comment:Testing performed by : [address] [address] AST 15 10 - 45 Units/L NILSA Comment:Testing performed by : [address] [address] Blood 01/29/2024 6:36 PM CDT 01/29/2024 6:39 PM CDT Julio Landeros DO LAB BLOOD ORDERABLES Final Res ult NILSA [address] [facility] [place] [address] * ECG 12 lead (01/29/2024 6:23 PM CDT) Ventricular Rate EKG/Min 86 BPM [facility] Atrial Rate 86 BPM [facility] [place]-Interval (MSEC) 158 ms [facility] QRS-Interval (MSEC) 66 ms [facility] QT-Interval (MSEC) 390 ms [facility] QTc 466 ms [facility] P [place] 72 degrees [facility] R [place] 6 degrees [facility] T [place] 65 degrees [facility] Diagnosis Normal sinus rhythm Normal ECG When compared with ECG of 19-DEC-2023 14:29, No significant change was found Confirmed by COLIN PINTO M.D. ([id number]) on 01/30/2024 9:19:04 PM [facility] 01/29/2024 6:23 PM CDT 01/30/2024 9:19 PM CDT Corinne Mesa NP ECG ORDERABLES Final Result Performing Organization Address [facility]/ZIP Co de Phone Number [facility] documented in this encounter Visit Diagnoses Diagnosis Upper GI bleeding- Primary Unspecified, hemorrhage of gastrointestinal tract Upper GI bleeding Unspecified, hemorrhage of gastrointestinal tract Acute blood loss anemia Acute posthemorrhagic anemia Complete tear of left rotator cuff, unspecified whether traumatic Hypertension, unspecified type ESRD (end stage renal disease) on dialysis ([facility]) End stage renal disease Coffee ground emesis Hematemesis ESRD on dialysis ([facility]) [N18.6, Z99.2] End stage renal disease Unsteadiness on feet Syncope, unspecified syncope type Age-related physical debility Coffee ground emesis Hematemesis STEFANO (acute kidney injury) ([facility]) Anemia, unspecified type Gastritis without bleeding, unspecified chronicity, unspecified gastritis type documented in this encounter Admitting Diagnoses Diagnosis Upper GI bleeding Unspecified, hemorrhage of gastrointestinal tract Coffee ground emesis Hematemesis documented in this encounter Administered Medications Inactive Administered Medications - up to 3 most recent administrations Medication Order MAR Action Action Date Dose Rate Site acetaminophen (TYLENOL) tablet 650 mg 650 mg, oral, 3 times daily, First dose on 01/30/24 at 0900, Indications: Fever, PainIndications:Fever,Pain Given 02/01/2024 4:25 PM CDT 650 mg Given 02/01/2024 9:02 AM CDT 650 mg Given 01/31/2024 3:38 PM CDT 650 mg albumin 5 % bottle 12.5 g 12.5 g, intravenous, Once, On Thu01/31/24 at 0100, For 1 dose, Infusion rate depends on indication and clinical situation. Suggested initial rate - 120 mL/hr. In patients with normal plasma volume, do not exceed 2 mL/minute, Indications: Intradialytic HypotensionIndications:Intradialytic Hypotension Given 01/31/2024 12:50 AM CDT 12.5 g atorvastatin (LIPITOR) tablet 40 mg 40 mg, oral, Nightly, First dose on 01/30/24 at 2100 Given 01/31/2024 9:04 PM CDT 40 mg Given 01/30/2024 9:51 PM CDT 40 mg benztropine (COGENTIN) tablet 2 mg 2 mg, oral, Daily, First dose on 01/30/24 at 0900 Given 02/01/2024 9:02 AM CDT 2 mg Given 01/31/2024 9:02 AM CDT 2 mg Given 01/30/2024 8:14 AM CDT 2 mg carvediloL (COREG) tablet 3.125 mg 3.125 mg, oral, 2 times daily with meals (bkfst, dinner), First dose on 01/30/24 at 0800 Given 02/01/2024 9:02 AM CDT 3.125 mg Given 01/31/2024 6:12 PM CDT 3.125 mg Given 01/31/2024 9:03 AM CDT 3.125 mg cloNIDine (CATAPRES) tablet 0.2 mg 0.2 mg, oral, Once, On Thu01/29/24 at 1936, For 1 dose Given 01/29/2024 8:06 PM CDT 0.2 mg darbepoetin isaiah (ARANESP) injection 100 mcg 100 mcg, intravenous, at 12 mL/hr, Administer over 1 Minutes, Weekly (for epoetins), First dose (after last reorder) on 02/06/24 at 2100, Indications: Anemia NOT associated with chemotherapy, radiation, or ESRDIndications:Anemia NOT associated with chemotherapy, radiation, or ESRD darbepoetin isaiah (ARANESP) injection 100 mcg 100 mcg, intravenous, Once (for epoetins), On 01/30/24 at 2345, For 1 dose, Indications: AnemiaIndications:Anemia Given 01/30/2024 11:32 PM CDT 100 m cg dextrose (D10W) 10% bolus 250 mL 250 mL, intravenous, at 1,000 mL/hr, Administer over 15 Minutes, Every 15 min PRN, blood glucose less than 70 mg/dL and UNABLE to swallow/take PO glucose/juice., Starting on 01/30/24 at 0250, After treatment for hypoglycemia, recheck BG followed by treatment every 15 minutes until the BG is greater than 100 mg/dL. Then check BG 1 hour post treatment. If BG is less than 100 mg/dL, repeat Q15 minute BG checks and treatment. Call MD for each episode of hypoglycemia., Indications: hypoglycemic disorderIndications:hypoglycemic disorder dextrose (GLUTOSE) 40 % gel 15 g 15 g, oral, Every 15 min PRN, low blood sugar, blood glucose less than 70 mg/dL, Starting on 01/30/24 at 0250, If patient is alert and able to [...] Call MD for each episode of hypoglycemia. CHANNEL MACHINE OPERATOR STATES GLUTOSE-15 CONTAINS GLUCOSE 40% W/W (50% W/V), Indications: hypoglycemic disorderIndications:hypoglycemic disorder ferrous sulfate tablet 325 mg 325 mg, oral, Daily with breakfast, First dose on 01/30/24 at 0800 Given 02/01/2024 9:02 AM CDT 325 mg Given 01/31/2024 9:03 AM CDT 325 mg Given 01/30/2024 8:14 AM CDT 325 mg gabapentin (NEURONTIN) capsule 100 mg 100 mg, oral, User Specified (Once per day on Thursday), First dose (after last modification) on Thu01/30/24 at 1600, Give AFTER dialysis Given 01/30/2024 5:56 PM CDT 100 mg glucagon injection 1 mg 1 mg, intramuscular, Every 30 min PRN, low blood sugar, blood glucose less than 70 mg/dL AND no IV access AND unable to take PO glucose/juice., Starting on Thu01/30/24 at 0250, After Glucagon is administered, position patient on [...] 1 mL SWFI. Use immediately following reconstitution. hydrALAZINE (APRESOLINE) injection 10 mg 10 mg, intravenous, Administer over 2 Minutes, Once, On Thu01/30/24 at 0200, For 1 dose Given 01/30/2024 2:02 AM CDT 10 mg hydrALAZINE (APRESOLINE) tablet 25 mg 25 mg, oral, 2 times daily, First dose (after last modification) on Thu01/31/24 at 2100, Indications: hypertensionIndications:hypertension Given 02/01/2024 9:02 AM CDT 25 mg Given 01/31/2024 9:04 PM CDT 25 mg hydrALAZINE (APRESOLINE) tablet 50 mg 50 mg, oral, Once, On Thu01/29/24 at 2023, For 1 dose, Indications: hypertensionIndications:hypertension Given 01/29/2024 9:26 PM CDT 50 mg hydrALAZINE (APRESOLINE) tablet 50 mg 50 mg, oral, 3 times daily, First dose on Thu01/30/24 at 0900, Indications: hypertensionIndications:hypertension Given 01/31/2024 9:03 AM CDT 50 mg Given 01/30/2024 5:55 PM CDT 50 mg Given 01/30/2024 8:14 AM CDT 50 mg HYDROcodone-acetaminophen (NORCO) 5-325 mg per tablet 1 tablet 1 tablet, oral, Every 4 hours PRN, 3rd line for pain, Starting on 01/31/24 at 1452, Indications: PainIndications:Pain Given 01/31/2024 4:46 PM CDT 1 tablet insulin glargine (LANTUS, SEMGLEE) 100 unit/mL injection 10 Units 10 Units (rounded from 9.525 Units = 0.15 Units/kg ? 63.5 kg), subcutaneous, Nightly, First dose on 01/30/24 at 2100, Do not hold if NPO. Do not mix with other insulins, Indications: Diabetes MellitusIndications:Diabetes Mellitus Given 01/31/2024 9:03 PM CDT 10 Units Left Lower Abdomen Given 01/30/2024 9:47 PM CDT 10 Units Le ft Upper Arm insulin lispro (HumaLOG, ADMELOG) 100 unit/mL injection 0-4 Units 0-4 Units, subcutaneous, Nightly, First dose on 01/30/24 at 2100, Blood glucose mg/dL: 199 or less: No insulin 200-249: add 1 unit 250-299: add 2 units 300-349: add 3 units and notify physician for adjustment of insulin orders. 350-399: add 4 units and notify physician for adjustment of insulin orders. Over 400: Notify physician for adjustment of insulin orders. Do NOT hold for NPO Status, Indications: Diabetes MellitusIndications:D iabetes Mellitus insulin lispro (HumaLOG, ADMELOG) 100 unit/mL injection 0-5 Units 0-5 Units, subcutaneous, 3 times daily with meals, First dose on 01/30/24 at 0800, Blood glucose mg/dL: 149 or less: No insulin 150-199: add 1 unit 200-249: add 2 units 250-299: add 3 units 300-349: add 4 units and notify physician for adjustment of insulin orders. 350-399: add 5 units and notify physician for adjustment of insulin orders. Over 400: Notify physician for adjustment of insulin orders. Do NOT hold for NPO Status, Indications: Diabetes MellitusIndications:D iabetes Mellitus Given 01/30/2024 5:55 PM CDT 1 Units Left Upper Abdomen ioversoL (OPTIRAY 350) syringe 100 mL 100 mL, intravenous, Once in imaging, contrast, Starting on Thu01/29/24 at 2253, For 1 dose Contrast Given 01/29/2024 11:36 PM CDT 100 mL Lactated Ringer's (LR) bolus 500 mL 500 mL, intravenous, Once, On 01/30/24 at 2115, For 1 dose New Bag 01/30/2024 8:48 PM CDT 500 mL 999 mL/hr methocarbamoL (ROBAXIN) tablet 750 mg 750 mg, oral, 3 times daily, First dose on 01/30/24 at 0900, For 5 days Given 02/01/2024 4:25 PM CDT 750 mg Given 02/01/2024 9:02 AM CDT 750 mg Given 01/31/2024 9:04 PM CDT 750 mg NIFEdipine (PROCARDIA XL/ADALAT CC) extended release tablet 60 mg 60 mg, oral, Daily, First dose on 01/30/24 at 0900, Do not crush, chew, cut, dissolve, open or otherwise manipulate tablet/capsule. Given 02/01/2024 9:01 AM CDT 60 mg Given 01/31/2024 9:04 AM CDT 60 mg Given 01/30/2024 8:14 AM CDT 60 mg ondansetron (ZOFRAN) injection 4 mg 4 mg, intravenous, Administer over 2 Minutes, Every 6 hours PRN, nausea, vomiting, if not tolerating PO, Starting on 01/30/24 at 0512, Indications: Nausea and VomitingIndications:Nausea and Vomiting ondansetron ODT (ZOFRAN-ODT) disintegrating tablet 4 mg 4 mg, oral, Every 6 hours PRN, nausea, vomiting, Starting on 01/30/24 at 0512, Indications: Nausea and VomitingIndications:Nausea and Vomiting pantoprazole (PROTONIX) 40 mg in sodium chloride 0.9% 10 mL IV Syringe 40 mg, intravenous, at 300 mL/hr, Administer over 2 Minutes, Once, On Thu01/29/24 at 2200, For 1 dose, For IV administration, reconstitute 40 mg vial with 10 mL sodium chloride 0.9% for injection for a final concentration of 4 mg/mL, Indications: GI BleedIndications:GI Bleed Given 01/29/2024 10:31 PM CDT 40 mg 300 mL/hr pantoprazole (PROTONIX) 40 mg in sodium chloride 0.9% 10 mL IV Syringe 40 mg, intravenous, at 300 mL/hr, Administer over 2 Minutes, 2 times daily, First dose on 01/30/24 at 0900, For IV administration, reconstitute 40 mg vial with 10 mL sodium chloride 0.9% for injection for a final concentration of 4 mg/mL, Indications: GI BleedIndications:GI Bleed Given 01/31/2024 9:04 AM CDT 40 mg 300 mL/hr Given 01/30/2024 9:50 PM CDT 40 mg 300 mL/hr Given 01/30/2024 8:14 AM CDT 40 mg 300 mL/hr pantoprazole DR (PROTONIX) extended release tablet 40 mg 40 mg, oral, Once, On Thu01/29/24 at 2022, For 1 dose, Do not crush, chew, cut, dissolve, open or otherwise manipulate tablet/capsule., Indications: GI BleedIndications:GI Bleed Given 01/29/2024 9:26 PM CDT [address] (PROTONIX) extended release tablet 40 mg 40 mg, oral, 2 times daily, First dose on 01/31/24 at 2100, Do not crush, chew, cut, dissolve, open or otherwise manipulate tablet/capsule., Indications: GI BleedIndications:GI Bleed Given 02/01/2024 9:01 AM CDT 40 mg Given 01/31/2024 9:04 PM CDT 40 mg risperiDONE (RisperDAL) tablet 2 mg 2 mg, oral, Nightly, First dose on 01/30/24 at 2100 Given 01/31/2024 9:03 PM CDT 2 mg Given 01/30/2024 9:51 PM CDT 2 mg sodium chloride 0.9% flush 0.5-20 mL 0.5-20 mL, intra-catheter, Every 8 hours scheduled, First dose on 01/30/24 at 0600, Flush volume based on line type and size. Given 02/01/2024 1:35 PM CDT 10 mL Given 01/31/2024 9:05 PM CDT 10 mL Given 01/31/2024 5:22 AM CDT 10 mL sodium chloride 0.9% infusion 30 mL/hr, intravenous, Continuous, Starting on Thu01/31/24 at 1300, Pre-Procedure (GI) New Bag 01/31/2024 1:10 PM CDT 30 mL/hr 30 mL/hr sodium chloride 0.9% IVPB 0-250 mL 0-250 mL, intravenous, Once, On Thu01/29/24 at 2201, For 1 dose, Prime blood tubing and administer amount needed to clear line (usually 50-100 mL) after transfusion complete. New Bag 01/29/2024 11:42 PM CDT 250 mL sucralfate (CARAFATE) 100 mg/mL oral suspension 1 g 1 g, oral, 4 times daily (with meals and nightly), First dose on Thu01/31/24 at 1430 Given 02/01/2024 1:35 PM CDT 1 g Given 02/01/2024 9:01 AM CDT 1 g Given 01/31/2024 9:03 PM CDT 1 g traMADoL (ULTRAM) tablet 25 mg 25 mg, oral, Once, On Thu01/29/24 at 2035, For 1 dose Given 01/29/2024 9:27 PM CDT 25 mg traMADoL (ULTRAM) tablet 25 mg 25 mg, oral, Every 8 hours PRN, 2nd line for pain, Starting on 01/30/24 at 0512 Given 01/31/2024 10:30 AM CDT 25 mg traMADoL (ULTRAM) tablet 50 mg 50 mg, oral, Once, On 01/30/24 at 0206, For 1 dose Given 01/30/2024 2:10 AM CDT 50 mg documented in this encounter Discontinued Medications Medication Sig Discontinue Reason Start Date End Da te risperiDONE (RisperDAL) 2 mg tablet Take 1 tablet (2 mg total) by mouth nightly 12/25/2023 02/01/2024 hydrALAZINE (APRESOLINE) 25 mg tabletIndications:hyp ertension Take 2 tablets (50 mg total) by mouth 3 (three) times a day 01/06/2024 02/01/2024 benztropine (COGENTIN) 2 mg tablet Take 1 tablet (2 mg total) by mouth daily 12/25/2023 02/01/2024 famotidine (PEPCID) 10 mg tablet Take 1 tablet (10 mg total) by mouth daily Stop Taking at Discharge 02/01/2024 diclofenac sodium (VOLTAREN) 1 % gel Apply 4 g topically 3 (three) times a day Stop Taking at Discharge 12/30/2023 02/01/2024 benztropine (COGENTIN) 1 mg tablet Stop Taking at Discharge 01/08/2024 02/01/2024 documented as of this encounter Active and Recently Administered Medications Times are shown in CDT. Scheduled Medication Order 01/30/2024 01/31/2024 02/01/2024 acetaminophen (TYLENOL) tablet 650 mg 650 mg, oral, 3 times daily, First dose on 01/30/24 at 0900, Indications: Fever, Pain 0814 (Given - Provider: Mikayla Ndiaye RN)1755 (Given - Provider: Mikayla Ndiaye RN)2151 (Given - Provider: Dinora Felipe RN) 0858 (Given - Provider: Rose Spencer RN)1310 (MAR Hold - Provider: Automatic Transfer Provider - Reason: Patient not available)1428 (MAR Unhold - Provider: Automatic Transfer Provider)1538 (Given - Provider: Rose Spencer RN)2113 (Not Given - Provider: Bart Rodarte RN - Reason: Patient/family refused) 0902 (Given - Provider: Kim Alves, ALIREZA)1625 (Given - Provider: Kim Alves, ALIREZA) albumin 5 % bottle 12.5 g (COMPLETED) 12.5 g, intravenous, Once, On 01/31/24 at 0100, For 1 dose, Infusion rate depends on indication and clinical situation. Suggested initial rate - 120 mL/hr. In patients with normal plasma volume, do not exceed 2 mL/minute, Indications: Intradialytic Hypotension 0050 (Given - Provider: Dinora Felipe, ALIREZA) atorvastatin (LIPITOR) tablet 40 mg 40 mg, oral, Nightly, First dose on 01/30/24 at 2100 2151 (Given - Provider: Dinora Felipe RN) 1310 (MAR Hold - Provider: Automatic Transfer Provider - Reason: Patient not available)1428 ([facility] Unhold - Provider: Automatic Transfer Provider)2104 (Given - Provider: Bart Rodarte, ALIREZA) benztropine (COGENTIN) tablet 2 mg 2 mg, oral, Daily, First dose on 01/30/24 at 0900 0814 (Given - Provider: Mikayla Ndiaye RN) 0902 (Given - Provider: Rose Spencer, ALIREZA)1310 ([facility] Hold - Provider: Automatic Transfer Provider - Reason: Patient not available)1428 ([facility] Unhold - Provider: Automatic Transfer Provider) 0902 (Given - Provider: Kim Alves, ALIREZA) carvediloL (COREG) tablet 3.125 mg 3.125 mg, oral, 2 times daily with meals (bkfst, dinner), First dose on 01/30/24 at 0800 0814 (Given - Provider: Mikayla Ndiaye RN)1755 (Given - Provider: Mikayla Ndiaye RN) 0903 (Given - Provider: Rose Spencer RN)1310 ([facility] Hold - Provider: Automatic Transfer Provider - Reason: Patient not available)1428 ([facility] Unhold - Provider: Automatic Transfer Provider)1812 (Given - Provider: Rose Spencer RN) 0902 (Given - Provider: Kim Alves, ALIREZA)1800 (Due) darbepoetin isaiah (ARANESP) injection 100 mcg 100 mcg, intravenous, at 12 mL/hr, Administer over 1 Minutes, Weekly (for epoetins), First dose (after last reorder) on 02/06/24 at 2100, Indications: Anemia NOT associated with chemotherapy, radiation, or ESRD 1310 ([facility] Hold - Provider: Automatic Transfer Provider - Reason: Patient not available)1428 ([facility] Unhold - Provider: Automatic Transfer Provider) darbepoetin isaiah (ARANESP) injection 100 mcg (COMPLETED) 100 mcg, intravenous, Once (for epoetins), On 01/30/24 at 2345, For 1 dose, Indications: Anemia 2332 (Given - Provider: Dinora Felipe, ALIREZA) ferrous sulfate tablet 325 mg 325 mg, oral, Daily with breakfast, First dose on 01/30/24 at 0800 0814 (Given - Provider: Mikayla Ndiaye RN) 0903 (Given - Provider: Rose Spencer, RN)1310 ([facility] Hold - Provider: Automatic Transfer Provider - Reason: Patient not available)1428 ([facility] Unhold - Provider: Automatic Transfer Provider) 09 (Given - Provider: Kim Alves, ALIREZA) gabapentin (NEURONTIN) capsule 100 mg 100 mg, oral, User Specified (Once per day on Thursday), First dose (after last modification) on 01/30/24 at 1600, Give AFTER dialysis 1756 (Given - Provider: Mikayla Ndiaye RN) 1310 ([facility] Hold - Provider: Automatic Transfer Provider - Reason: Patient not available)142 ([facility] Unhold - Provider: Automatic Transfer Provider) hydrALAZINE (APRESOLINE) injection 10 mg (COMPLETED) 10 mg, intravenous, Administer over 2 Minutes, Once, On 01/30/24 at 0200, For 1 dose 0202 (Given - Provider: Lulú Kelly RN) hydrALAZINE (APRESOLINE) tablet 25 mg 25 mg, oral, 2 times daily, First dose (after last modification) on 01/31/24 at 2100, Indications: hypertension 1310 (AUG Hold - Provider: Automatic Transfer Provider - Reason: Patient not available)1428 ([facility] Unhold - Provider: Automatic Transfer Provider)2104 (Given - Provider: Bart Rodarte RN) 09 (Given - Provider: Kim Alves, ALIREZA) hydrALAZINE (APRESOLINE) tablet 50 mg (CANCELED) 50 mg, oral, 3 times daily, First dose on 01/30/24 at 0900, Indications: hypertension 0814 (Given - Provider: Mikayla Ndiaye RN)1755 (Given - Provider: Mikayla Ndiaye RN)2150 (Hold - Provider: Dinora Felipe RN - Reason: Contraindicated) 09 (Given - Provider: Rose Spencer, ALIREZA) insulin glargine (LANTUS, SEMGLEE) 100 unit/mL injection 10 Units 10 Units (rounded from 9.525 Units = 0.15 Units/kg ? 63.5 kg), subcutaneous, Nightly, First dose on 01/30/24 at 2100, Do not hold if NPO. Do not mix with other insulins, Indications: Diabetes Mellitus 2147 (Given - Provider: Dinora Felipe RN) 1310 (MAR Hold - Provider: Automatic Transfer Provider - Reason: Patient not available)1428 (MAR Unhold - Provider: Automatic Transfer Provider)2102 (Given - Provider: Bart Rodarte RN) insulin lispro (HumaLOG, ADMELOG) 100 unit/mL injection 0-4 Units 0-4 Units, subcutaneous, Nightly, First dose on 01/30/24 at 2100, Blood glucose mg/dL: 199 or less: No insulin 200-249: add 1 unit 250-299: add 2 units 300-349: add 3 units and notify physician for adjustment of insulin orders. 350-399: add 4 units and notify physician for adjustment of insulin orders. Over 400: Notify physician for adjustment of insulin orders. Do NOT hold for NPO Status, Indications: Diabetes Mellitus 2214 (Not Given - Provider: Dinora Felipe RN - Reason: Order parameters not met) 1310 (MAR Hold - Provider: Automatic Transfer Provider - Reason: Patient not available)142 ([place] Unhold - Provider: Automatic Transfer Provider)2103 (Not Given - Provider: Bart Rodarte RN - Reason: Order parameters not met) insulin lispro (HumaLOG, ADMELOG) 100 unit/mL injection 0-5 Units 0-5 Units, subcutaneous, 3 times daily with meals, First dose on 01/30/24 at 0800, Blood glucose mg/dL: 149 or [...] hold for NPO Status, Indications: Diabetes Mellitus 0854 (Not Given - Provider: Mikayla Ndiaye RN - Reason: Order parameters not met)1350 (Not Given - Provider: Mikayla Ndiaye RN - Reason: Order parameters not met)1755 (Given - Provider: Mikayla Ndiaye RN) 0904 (Not Given - Provider: Rose Spencer RN - Reason: Order parameters not met)1310 (AUG Hold - Provider: Automatic Transfer Provider - Reason: Patient not available)1428 ([place] Unhold - Provider: Automatic Transfer Provider)1500 (Not Given - Provider: Rose Spencer RN - Reason: Order parameters not met)1811 (Not Given - Provider: Rose Spencer RN - Reason: Order parameters not met) 0738 (Not Given - Provider: Kim Alves RN - Reason: Order parameters not met)1235 (Not Given - Provider: Kim Alves RN - Reason: Order parameters not met - Comment: bs 100)1800 (Due) Lactated Ringer's (LR) bolus 500 mL (COMPLETED) 500 mL, intravenous, Once, On 01/30/24 at 2115, For 1 dose 8 (New Bag - Provider: Dinora Felipe RN) methocarbamoL (ROBAXIN) tablet 750 mg 750 mg, oral, 3 times daily, First dose on 01/30/24 at 0900, For 5 days 0814 (Given - Provider: Mikayla Ndiaye RN)1755 (Given - Provider: Mikayla Ndiaye RN)2151 (Given - Provider: Dinora Felipe RN) 0903 (Given - Provider: Rose Spencer RN)1310 (AUG Hold - Provider: Automatic Transfer Provider - Reason: Patient not available)1428 ([place] Unhold - Provider: Automatic Transfer Provider)1538 (Given - Provider: Rose Spencer RN)2104 (Given - Provider: Bart Rodarte RN) 0902 (Given - Provider: Kim Alves RN)1625 (Given - Provider: Kim Alves RN) NIFEdipine (PROCARDIA XL/ADALAT CC) extended release tablet 60 mg 60 mg, oral, Daily, First dose on 01/30/24 at 0900, Do not crush, chew, cut, dissolve, open or otherwise manipulate tablet/capsule. 0814 (Given - Provider: Mikayla Ndiaye RN) 0904 (Given - Provider: Rose Spencer, ALIREZA)1310 (AUG Hold - Provider: Automatic Transfer Provider - Reason: Patient not available)1428 ([facility] [place] Unhold - Provider: Automatic Transfer Provider) 09 (Given - Provider: Kim Alves, ALIREZA) pantoprazole (PROTONIX) 40 mg in sodium chloride 0.9% 10 mL IV Syringe (CANCELED) 40 mg, intravenous, at 300 mL/hr, Administer over 2 Minutes, 2 times daily, First dose on 01/30/24 at 0900, For IV administration, reconstitute 40 mg vial with 10 mL sodium chloride 0.9% for injection for a final concentration of 4 mg/mL, Indications: GI Bleed 813 (Given - Provider: Mikayla Ndiaye RN)215 (Given - Provider: Dinora Felipe, ALIREZA) 09 (Given - Provider: Rose Spencer RN)1310 ([facility] [place] Hold - Provider: Automatic Transfer Provider - Reason: Patient not available)1348 ([facility] [place] Unhold - Provider: Michoacano Gibson MD) pantoprazole DR (PROTONIX) extended release tablet 40 mg 40 mg, oral, 2 times daily, First dose on 01/31/24 at 2100, Do not crush, chew, cut, dissolve, open or otherwise manipulate tablet/capsule., Indications: GI Bleed 2103 (Given - Provider: Bart Rodarte RN) 0901 (Given - Provider: Kim Alves, ALIREZA) risperiDONE (RisperDAL) tablet 2 mg 2 mg, oral, Nightly, First dose on 01/30/24 at 2100 2151 (Given - Provider: Dinora Felipe RN) 1310 ([facility] [place] Hold - Provider: Automatic Transfer Provider - Reason: Patient not available)1428 ([facility] [place] Unhold - Provider: Automatic Transfer Provider)2103 (Given - Provider: Bart Rodarte RN) sodium chloride 0.9% flush 0.5-20 mL 0.5-20 mL, intra-catheter, Every 8 hours scheduled, First dose on 01/30/24 at 0600, Flush volume based on line type and size. 0550 (Given - Provider: Elvia Frederick RN)1756 (Given - Provider: Mikayla Ndiaye RN)2222 (Given - Provider: Dinora Felipe, ALIREZA) 0522 (Given - Provider: Dinora Felipe RN)1310 (MAR Hold - Provider: Automatic Transfer Provider - Reason: Patient not available)1400 (Not Given - Provider: Rose Spencer RN - Reason: Other - Comment: duplicaed)1428 (MAR Unhold - Provider: Automatic Transfer Provider)2105 (Given - Provider: Bart Rodarte RN) 0718 (Not Given - Provider: Bart Rodarte RN - Reason: Patient/family refused)1335 (Given - Provider: Kim Alves RN) sucralfate (CARAFATE) 100 mg/mL oral suspension 1 g 1 g, oral, 4 times daily (with meals and nightly), First dose on 01/31/24 at 1430 1538 (Given - Provider: Rose Spencer RN)1812 (Not Given - Provider: Rose Spencer RN - Reason: Other - Comment: too close to previous dose)2103 (Given - Provider: Bart Rodarte RN) 0901 (Given - Provider: Kim Alves RN)1335 (Given - Provider: Kim Alves RN)1800 (Due) traMADoL (ULTRAM) tablet 50 mg (COMPLETED) 50 mg, oral, Once, On 01/30/24 at 0206, For 1 dose 0210 (Given - Provider: Lulú Kelly RN) Continuous Medication Order 01/30/2024 01/31/2024 02/01/2024 sodium chloride 0.9% infusion 30 mL/hr, intravenous, Continuous, Starting on 01/31/24 at 1300, Pre-Procedure (GI) 1310 (New Bag - Provider: Jaydon Bailon RN)1400 (Stopped - Provider: Marilyn Bailon RN) PRN Medication Order 01/30/2024 01/31/2024 02/01/2024 Carrier Fluids for Secondary Infusion - 0.9% Sodium Chloride 30 mL, intravenous, As needed, For priming tubing and/or flushing, Starting on 01/30/24 at 0512, 0-250 ml/hr to flush line after IV infusions when no maintenance IV ordered. Infuse 30mL at the same rate as the secondary infusion. Run as primary IV, not intended for KVO. 1310 ([facility] Hold - Provider: Automatic Transfer Provider - Reason: Patient not available)1428 ([facility] [place] Unhold - Provider: Automatic Transfer Provider) dextrose (D10W) 10% bolus 250 mL(Linked Group 1) 250 mL, intravenous, at 1,000 mL/hr, Administer over 15 Minutes, Every 15 min PRN, blood glucose less than 70 mg/dL and UNABLE to swallow/take PO glucose/juice., Starting on 01/30/24 at 0250, After treatment for hypoglycemia, recheck BG followed by treatment every 15 minutes until the BG is greater than 100 mg/dL. Then check BG 1 hour post treatment. If BG is less than 100 mg/dL, repeat Q15 minute BG checks and treatment. Call MD for each episode of hypoglycemia., Indications: hypoglycemic disorder 1310 ([facility] [place] Hold - Provider: Automatic Transfer Provider - Reason: Patient not available)1428 ([facility] [place] Unhold - Provider: Automatic Transfer Provider) dextrose (GLUTOSE) 40 % gel 15 g(Linked Group 1) 15 g, oral, Every 15 min PRN, low blood sugar, blood glucose less than 70 mg/dL, Starting on 01/30/24 at 0250, If patient is alert and able to [...] Call MD for each episode of hypoglycemia. CHANNEL MACHINE OPERATOR STATES GLUTOSE-15 CONTAINS GLUCOSE 40% W/W (50% W/V), Indications: hypoglycemic disorder 1310 ([facility] [place] Hold - Provider: Automatic Transfer Provider - Reason: Patient not available)1428 ([facility] [place] Unhold - Provider: Automatic Transfer Provider) glucagon injection 1 mg 1 mg, intramuscular, Every 30 min PRN, low blood sugar, blood glucose less than 70 mg/dL AND no IV access AND unable to take PO glucose/juice., Starting on 8/10/24 at 0250, After Glucagon is administered, position patient on [...] 1 mL SWFI. Use immediately following reconstitution. 1310 ([facility] [place] Hold - Provider: Automatic Transfer Provider - Reason: Patient not available)1428 ([facility] [place] Unhold - Provider: Automatic Transfer Provider) HYDROcodone-acetaminophen (NORCO) 5-325 mg per tablet 1 tablet 1 tablet, oral, Every 4 hours PRN, 3rd line for pain, Starting on 01/31/24 at 1452, Indications: Pain 1646 (Given - Provider: lCaire Spencer, RN) ondansetron (ZOFRAN) injection 4 mg(Linked Group 2) 4 mg, intravenous, Administer over 2 Minutes, Every 6 hours PRN, nausea, vomiting, if not tolerating PO, Starting on 01/30/24 at 0512, Indications: Nausea and Vomiting 1310 ([facility] [place] Hold - Provider: Automatic Transfer Provider - Reason: Patient not available)1428 ([facility] [place] Unhold - Provider: Automatic Transfer Provider) ondansetron ODT (ZOFRAN-ODT) disintegrating tablet 4 mg(Linked Group 2) 4 mg, oral, Every 6 hours PRN, nausea, vomiting, Starting on 01/30/24 at 0512, Indications: Nausea and Vomiting 1310 ([facility] [place] Hold - Provider: Automatic Transfer Provider - Reason: Patient not available)1428 ([facility] [place] Unhold - Provider: Automatic Transfer Provider) polyethylene glycol (MIRALAX) packet 17 g 17 g, oral, Daily PRN, constipation, Starting on 01/30/24 at 0512, Indications: constipation 1310 ([facility] [place] Hold - Provider: Automatic Transfer Provider - Reason: Patient not available)1428 ([facility] [place] Unhold - Provider: Automatic Transfer Provider) ramelteon (ROZEREM) tablet 8 mg 8 mg, oral, Nightly PRN, sleep, Starting on 01/30/24 at 0512, Indications: Sleep-Onset Insomnia 1310 ([facility] Hold - Provider: Automatic Transfer Provider - Reason: Patient not available)1428 ([place] Unhold - Provider: Automatic Transfer Provider) simethicone (MYLICON) 66.7 mg/mL oral drops (CANCELED) As needed, Starting on 01/31/24 at 1326, Intra-Op 1326 (Given - Provider: Jimbo Duvall MD) sodium chloride 0.9% flush 0.5-20 mL 0.5-20 mL, intra-catheter, As needed, line care, Starting on 01/30/24 at 0512, Flush volume based on line type and size. Flush before and after each use. 1310 (AUG Hold - Provider: Automatic Transfer Provider - Reason: Patient not available)1428 ([place] Unhold - Provider: Automatic Transfer Provider) traMADoL (ULTRAM) tablet 25 mg 25 mg, oral, Every 8 hours PRN, 2nd line for pain, Starting on 01/30/24 at 0512 1030 (Given - Provider: Claire Spencer RN)1310 ([facility] Hold - Provider: Automatic Transfer Provider - Reason: Patient not available)1428 ([facility] [place] Unhold - Provider: Automatic Transfer Provider) Linked Groups Order Group 1: dextrose (GLUTOSE) 40 % gel 15 gJump to med 15 g, oral, Every 15 min PRN, low blood sugar, blood glucose less than 70 mg/dL, Starting on 01/30/24 at 0250, If patient is alert and able to [...] Call MD for each episode of hypoglycemia. CHANNEL MACHINE OPERATOR STATES GLUTOSE-15 CONTAINS GLUCOSE 40% W/W (50% W/V), Indications: hypoglycemic disorder Or dextrose (D10W) 10% bolus 250 mLJump to med 250 mL, intravenous, at 1,000 mL/hr, Administer over 15 Minutes, Every 15 min PRN, blood glucose less than 70 mg/dL and UNABLE to swallow/take PO glucose/juice., Starting on 01/30/24 at 0250, After treatment for hypoglycemia, recheck BG followed by treatment every 15 minutes until the BG is greater than 100 mg/dL. Then check BG 1 hour post treatment. If BG is less than 100 mg/dL, repeat Q15 minute BG checks and treatment. Call MD for each episode of hypoglycemia., Indications: hypoglycemic disorder Group 2: ondansetron ODT (ZOFRAN-ODT) disintegrating tablet 4 mgJump to med 4 mg, oral, Every 6 hours PRN, nausea, vomiting, Starting on 01/30/24 at 0512, Indications: Nausea and Vomiting Or ondansetron (ZOFRAN) injection 4 mgJump to med 4 mg, intravenous, Administer over 2 Minutes, Every 6 hours PRN, nausea, vomiting, if not tolerating PO, Starting on 01/30/24 at 0512, Indications: Nausea and Vomiting documented in this encounter Orders Medications Ordered That Flip ht Not Have Been Administered Count Last Ordered Date First Ordered Date diphenhydrAMINE (BENADRYL) 5 0 mg/mL injection 12.5 mg 1 01/31/2024 hydrALAZINE (APRESOLINE) injection 5 mg 1 0 01/31/2024 hydrALAZINE (APRESOLINE) tablet 50 mg 1 04/2024 labetaloL (NORMODYNE,TRANDAT E) injection 5 mg 1 01/31/2024 meperidine (DEMEROL) preserv ative free injection 12.5 mg 1 01/31/2024 naloxone (NARCAN) 0.4 mg/mL injection 0.04-0.4 mg 1 01/31/2024 ondansetron (ZOFRAN) injection 4 mg 2 01/3001/30/2024 prochlorperazine (COMPAZINE) injection 5 mg 1 01/31/2024 simethicone (MYLICON) 66.7 m g/mL oral drops 1 01/31/2024 sodium chloride 0.9% flush 0.5-20 mL 3 01/2001/30/2024 Carrier Fluids for Secondary Infusion - 0.9% Sodium Chloride 1 01/30/2024 darbepoetin isaiah (ARANESP) i njection 100 mcg 2 01/30/2024 dextrose (D10W) 10% bolus 250 mL 1 01/30/20 24 dextrose (GLUTOSE) 40 % gel 15 g 1 01/30/20 24 gabapentin (NEURONTIN) capsule 100 mg 1 03/2024 glucagon injection 1 mg 1 01/30/2024 insulin lispro (HumaLOG, ADM ELOG) 100 unit/mL injection 0-4 Units 1 01/30/2024 ondansetron ODT (ZOFRAN-ODT) disintegrating tablet 4 mg 1 01/30/2024 oxyCODONE (ROXICODONE) tablet 5 mg 1 2023 polyethylene glycol (MIRALAX) packet 17 g 1 01/30/2024 ramelteon (ROZEREM) tablet 8 mg 1 sodium chloride 0.9% bolus 200 mL 1 024 Lab Orders Without Results Count Last Ordered D ate First Ordered Date POCT GLUCOSE DEVICE 7 01/31/2024 01/30/20 24 Nursing Count Last Ordered Date First Orde red Date DISCHARGE INSTRUCTIONS 2 02/01/2024 FOLLOW UP WITH ESTABLISHED PROVIDER 2 01/31 TELEMETRY MONITORING 3 02/01/2024 024 MISCELLANEOUS NURSING CARE ORDER (SPECIFY) 1 01/30/2024 VERIFY INFORMED CONSENT 1 01/30/2024 WEIGH PATIENT 1 01/30/2024 Consult Count Last Ordered Date First Orde red Date IP CONSULT TO GASTROENTEROLOGY 1 01/29/2024 IP CONSULT TO NEPHROLOGY 1 01/29/2024 Dialysis Count Last Ordered Date First Orde red Date HEMODIALYSIS/DUF 1 01/30/2024 Admission Count Last Ordered Date First Orde red Date ADMIT TO INPATIENT 1 01/30/2024 Discharge Count Last Ordered Date First Orde red Date DISCHARGE PATIENT 1 02/01/2024 CORE MEASURES Count Last Ordered Date First Ord ered Date REASON FOR NO VTE PROPHYLAXI S - HOSPITAL ADMISSION - MEDICATIONS 1 01/30/2024 Case Request Count Last Ordered Date First Orde red Date CASE REQUEST GI 1 01/30/2024 documented in this encounter 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 06/26/2024 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 documented as of this encounter Care Teams Gaming Commissioner Relationship Specialty Start Date End Date Duane Corcoran MD PCP - General Family Medicine 08/30/19 Mark Queen MD Consulting Physician Infectious Diseases 01/10/20 Rudolph Welch MD [address] [facility] [address] [place] [address] Consulting Physician Infectious Diseases 12/05/22 Markie Ryan MD [address] [facility] [address] [place] [address] Consulting Physician Nephrology 12/05/22 Dulce Vega RN [address] [place] [address] [address] [place] [address] Area Representative 10/07/23 05/03/24 [place] [id number] [facility] [address] [facility] [address] [place] [address] Consulting Physician Nephrology 10/22/23 Jaya Rivera MD [address] [facility] [address] [place] [address] Consulting Physician Gastroenterology 02/01/24 documented as of this encounter
--- OUTSIDE RECORDS SUMMARY | 2024-07-04 04:03 | XMS_ITS | Encounter Summary ---
Author Organization [facility] Healthcare Address [address] [place] [address] Care Team Providers Care Roofing Layer Name Role Phone Cherelle Corcoran MD Primary Care Pro vider Mark Queen MD Unavailable [phone] Rudolph Welch MD Unavailable Markie Ryan MD Unavailable Dulce Vega RN Unavailable [phone] Jimbo Strauss MD Unavailable [phone] Jaya Grier MD Unavailable Reason for Visit * Auth/Cert (Routine) Specialty Diagnoses / Procedures Referred By Contac t Referred To Contact Referral ID Status Reason Start Date Expiration Date Visits Re quested Visits Authorized [id number] 1 1 Encounter Details Date Type Department Care Team (Late st Contact Info) Description 01/20/2024 10:30 AM CDT Home Care Visit [facility] [address] [place] [address] Nicolas Burgess, ALIREZA SN OASIS DISCHARGE Social History Tobacco Use Types Packs/Day [...] doctor or pharmacy Often 01/20/2024 [facility] Utilities Answer Date Recorded In the past 12 months has th e electric, gas, oil, or water [employer] threatened to shut off services in your [...] often do you attend chur ch or rastafarian services? More than 4 times per year 02/01/2024 Do you belong to any clubs o r organizations such as synagogue groups, unions, fraternal or athletic groups, or [...] time in the past 12 m [facility], were you homeless or living [...] on file Legal Sex Female 9:03 AM WAREHOUSE CHECKER Gender Identity Female 02/08/2020 6:39 PM CDT Sexual Orientation Not on file documented as of this encounter Last Filed Vital Signs Vital Sign Reading Time Taken Comments Blood Pressure 138/70 01/20/2024 10:57 AM CDT Pulse 88 01/20/2024 10:57 AM CDT Temperature 36.4 ??C (97.6 ??F) 01/20/2024 10:57 AM C DT Respiratory Rate 18 01/20/2024 10:57 AM CDT Oxygen Saturation 97% 01/20/2024 10:57 AM CDT Inhaled Oxygen Concentration - - Weight - - Height - - Body Mass Index - - documented in this encounter Miscellaneous Notes * Home Health Visit Narrative - Nicolas Burgess RN - 01/20/2024 11:10 AM CDT Patient is no longer homebound and is discharged from . Patient is starting outpatient rehab on Jan 21. documented in this encounter Plan of Treatment Upcoming Encounters Date Type Department Care Team (Latest Contact Info) Description 07/13/2024 9:00 AM WAREHOUSE CHECKER Hospital Encounter [facility] [address] [place] [id number] Jaya Grier MD [address] [place] [address] [address] [place] [phone] 07/13/2024 9:00 AM WAREHOUSE CHECKER - 07/13/2024 9:30 AM WAREHOUSE CHECKER Surgery [facility] [address] [place] [phone] Jaya Grier MD [facility] [address] [place] [address] ESOPHAGOGASTRODUODENOSCOPY Scheduled Procedures Name Priority Associated Diagnoses Date/Ti ut ESOPHAGOGASTRODUODENOSCOPY Anemia, unspecified type Gastritis without bleeding, unspecified chronicity, unspecified gastritis type 07/13/2024 9:00 AM WAREHOUSE CHECKER COLONOSCOPY Iron deficiency anemia due to chronic blood loss documented as of this encounter Visit Diagnoses Not on filedocumented in this encounter 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 06/26/2024 3:05 AM WAREHOUSE CHECKER documented as of this encounter Home Health Visit - Care Plan Visit Details Visit Type -SN OASIS Dischar ge Discipline -Fci Problems Problem Description Start Date Status Goals Interventions Homebound Status Disciplines: Skilled Disciplines Patient's homebound status 12/28/2023 Resolved on 01/20/2024 1 goal linked to scheduled/docume nted intervention 1 goal intervention scheduled/documen bruno in this visit Medications Disciplines: Fci Management of home medications 12/28/2023 Resolved on 01/20/2024 1 goal linked to scheduled/docume nted intervention Monitor patient's vital signs every home health visit Disciplines: SN, PT, OT, CULINARY CHEF, DIAMOND DRILLER HELPER, Skilled Disciplines Monitor patient's vital signs every home health visit. 12/28/2023 Resolved on 01/20/2024 1 goal linked to scheduled/docume nted intervention 1 goal intervention scheduled/documen bruno in this visit Multidisciplinar y Case Conference Disciplines: Skilled Disciplines Concurrently discusses plan of treatment and coordinate patient centered care 12/28/2023 Resolved on 01/20/2024 1 goal linked to scheduled/docume nted intervention Infection Prevention Disciplines: Skilled Disciplines Infection Prevention [...] goal intervention scheduled/documen bruno in this visit Learning/[facility] Needs - Diabetes Disciplines: Fci Learning and teaching needs associated with diagnosis 12/28/2023 Resolved on 01/20/2024 1 goal linked to scheduled/docume nted intervention 3 goal interventions scheduled/documen bruno in this visit Learning/Teachin g Needs - Hypertension Disciplines: Fci Lack of knowledge regarding medical regimen related to controlling/manag ing hypertension 12/28/2023 Resolved on 01/20/2024 1 goal linked to scheduled/docume nted intervention 3 goal interventions scheduled/documen bruno in this visit Goals Goal Associated Problem Outcome Goal Met? Visit Notes Patient receives care at the most appropriate care setting Description: Patient receives care at the most appropriate care setting. Homebound Status Completed Yes Understand and follow medication therapy Description: Patient/Caregiver will verbalize understanding of purpose, side effects, and medication regimen in 4 weeks as evidenced by taking all medications as prescribed and no medication errors. Medications Completed Yes Measure vital signs during every home health visit during episode of care Description: Home speech clinician to measure vital signs during every home health visit during episode of care. Monitor patient's vital signs every home health visit Completed Yes Care team will coordinate care Description: Care team will coordinate care centered on patient needs throughout the episode of care. Multidisciplinary Case Conference Completed Yes Verbalize signs of infection Description: Patient/caregiver will demonstrate knowledge of infection prevention strategies by verbalizing signs and symptoms of infection. Infection Prevention Completed Yes Demonstrate use of safety precautions Description: Patient/caregiver maintains safe home environment as evidenced by remaining free from injury and demonstrates use of safety precautions. Safety concerns Completed Yes Demonstrate knowledge of telehealth Description: Patient demonstrates knowledge of telemonitor use by transmitting vital signs daily. Remote Monitoring Completed Yes Report that pain has been reduced or controlled Description: Patient/caregiver/family will verbalize satisfaction with the patients level of pain and symptom control. Pain Completed Yes Demonstrate adequate knowledge of Diabetes Description: Patient/caregiver will demonstrate adequate knowledge of diabetes as evidenced by the ability to perform blood sugar monitoring, care of feet, skin and eyes and signs/symptoms of altered glycemic states and their treatment by the end of the episode of care. Learning/Teaching Needs - Diabetes Completed Yes Demonstrate adequate knowledge of care related to Hypertension Description: Patient/Caregiver will demonstrate adequate knowledge as evidenced by the ability to describe disease process and effects, signs/symptoms, risk factors and lifestyle modification requirements by the end of the episode of care. Learning/Teaching Needs - Hypertension Completed Yes Interventions Intervention Associated Problem/Goal Status Variance [...] most appropriate care setting Completed Patient is no longer homebound and is discharged from . Patient is starting outpatient rehab on Jan 21. Monitor Vital Signs Description: Monitor blood pressure, [...] pain has been reduced or controlled Completed Instruct sick day Description: Instruct patient/caregiver in Sick Day Guidelines. Problem:Learning/[facility] Needs - Diabetes Goal:Demonstrate adequate knowledge of Diabetes Completed Instruct on signs and symptoms of hyperglycemia Description: Instruct patient/caregiver in signs/symptoms of hyperglycemia. Problem:Learning/[facility] Needs - Diabetes Goal:Demonstrate adequate knowledge of Diabetes Completed Blood glucose monitoring Description: Patient/caregiver to perform blood sugar testing and record in log. Frequency of testing ACHS Problem:Learning/[facility] Needs - Diabetes Goal:Demonstrate adequate knowledge of Diabetes Completed Instruct on blood pressure daily log Description: Teach patient/family how to use cuff. SN to develop blood pressure diary for patient to record daily readings. Instruct patient to monitor and record blood pressure on daily log. Problem:Learning/[facility] Needs - Hypertension Goal:Demonstrate adequate knowledge of care related to Hypertension Completed Instruct on stress reduction Description: Instruct patient/caregiver in how stress impacts health and in methods to reduce stress. [facility] Goal:Demonstrate adequate knowledge of care related to Hypertension Completed Instruct on the risk factors of hypertension Description: Instruct patient/caregiver in disease process and effects of fpc uncontrolled hypertension. Problem:Learning/[facility] Needs - Hypertension Goal:Demonstrate adequate knowledge of care related to Hypertension Completed documented in this encounter Care Teams Roofing Layer Relationship Specialty Start Date End Date Cherelle Corcoran MD PCP - General Family Medicine 08/30/19 Mark Queen MD Consulting Physician Infectious Diseases 01/10/20 Rudolph Wlech MD [address] [place] [address] Consulting Physician Infectious Diseases 12/05/22 Markie Ryan MD [address] [place] [address] Consulting Physician Nephrology 12/05/22 Dulce Vega, ALIREZA [address] [place] [address] [address] [place] [address] Oil Driller 10/07/23 05/03/24 [place] [id number] [place] [address] Consulting Physician Nephrology 10/22/23 Jaya Grier MD [address] [place] [address] Consulting Physician Gastroenterology 02/01/24 documented as of this encounter
--- OUTSIDE RECORDS SUMMARY | 2024-07-04 04:03 | XMS_ITS | Encounter Summary ---
Author Organization [facility] Healthcare Address [address] [place] [address] Care Team Providers Care Senior Infrastructure Architect Name Role Phone Duane Corcoran MD Primary Care Pro vider Mark Queen MD Unavailable [phone] Rudolph Welch MD Unavailable [phone] Markie Ryan MD Unavailable [phone] Dulce Vega RN Unavailable [phone] Jimbo Strauss MD Unavailable [phone] Reason for Visit * Reason Comments Arm [...] Expiration Date Visits Re quested Visits Authorized [id number] 1 1 Encounter Details Date Type Department Care Team (Latest Contact Info) Description 01/31/2024 12:00 PM CDT - 01/31/2024 12:40 PM CDT Surgery [facility] GI Endo [address] [place] [address] Malcolm Duvall MD [address] [facility] [place] [address] ESOPHAGOGASTRODUODENOSCOPY BIOPSY Surgery Details Date/Time Status Location OR Service Patient Class Case Class Case Type Trauma Case? 01/31/2024 12:00 PM Posted [facility] END[facility]COPY GI 01 Gastroenterology Inpatient Urgent - 24 hours Panel 1 Procedure LRB Anes Op Region Wound Class Comments ESOPHAGOGASTRODUODENOSCOPY BIOPSY N/A Monitor Anesthesia Care Class II - Clean Contaminated Surgeon Surgeon Role Service Panel Malcolm Duvall MD Primary Gastroente rology 1 documented in this encounter Social History [...] materials from doctor or pharmacy Often 01/20/2024 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 Gender Identity Female 02/08/2020 6:39 PM CDT Sexual Orientation Not on file documented as of this encounter Last Filed Vital Signs Vital Sign Reading Time Taken Comments Blood Pressure 147/58 01/31/2024 11:22 AM CDT Pulse 72 01/31/2024 11:22 AM CDT Temperature 36.9 ??C (98.4 ??F) 01/31/2024 11:22 AM C DT Respiratory Rate 16 01/31/2024 11:22 AM CDT Oxygen Saturation 97% 01/31/2024 11:22 AM CDT Inhaled Oxygen Concentration - - [...] Patient Age - 73 yrs Patient - [id number] [facility] - [id number] Document Creation Date: 02/01/2024 Admitting Provider, : Malcolm Duvall MD Discharge Provider, : Michoacano Gibson MD Primary Care Physician at Discharge: Duane Corcoran MD [phone] Admission Date: 01/29/2024 Discharge Date/time: 02/01/2024 Admission Location: [facility] LOS - LOS: 2 days DETAILS OF [...] daily with breakfast flash glucose scanning reader [facility] Use Madhav 3 reader to scan Madhav 3 sensor fluticasone propionate 50 mcg/actuation nasal spray Commonly known as: FLONASE Administer 2 sprays into each nostril daily as needed for rhinitis FreeStyle Madhav 2 Sensor kit Doctor's comments: Type 2 diabetic, on 2 insulin Generic drug: flash glucose sensor Use to continually monitor glucose, change every 14 days FreeStyle Madhav 3 [place] mis Generic drug: blood-glucose meter,continuous Use Madhav 3 [...] Your Medications These medications [id number] - [place] - [address] AT [address], [place] [address] benztropine 2 mg tablet hydrALAZINE 25 mg [...] Order Current Status Surgical pathology Collected (01/31/24 7695) Operative Procedures Performed (If Blank, None Found): Procedure(s): ESOPHAGOGASTRODUODENOSCOPY BIOPSY Outpatient Follow-Up: Future Appointments Date Time Provider Department Center 02/02/2024 10:45 AM Amanda Hodges, CAR MANAGER [facility]1 OPPT [facility] 1 02/04/2024 10:45 AM MHE CAR MANAGER [facility]1 OPPT [facility] 1 02/05/2024 9:30 AM Perico Raphael PA OSM OS 340 MH Specialty 02/09/2024 10:45 AM MHE CAR MANAGER [facility] OPPT [facility] 1 02/11/2024 10:45 AM Amanda Hodges, CAR MANAGER [facility]1 OPPT [facility] 1 02/11/2024 3:30 PM Duane Corcoran MD PCP 210 PC 02/15/2024 1:15 PM Shea Evangelista, RD CH Diab Ed CH Main 02/16/2024 10:45 AM Amanda Hodges, CAR MANAGER [facility]HEMOB1 OPPT [facility] 1 02/18/2024 10:45 AM Vivien Cantor, CAR MANAGER [facility]1 OPPT [facility] 1 02/23/2024 10:45 AM Rick Oconnor, CAR MANAGER [facility]1 OPPT [facility] M[facility] 1 02/25/2024 10:45 AM Rick Oconnor, CAR MANAGER [facility]1 OPPT [facility] 1 03/01/2024 10:45 AM Rick Oconnor, CAR MANAGER [facility]MO[facility]1 OPPT [facility] M[facility] 1 03/03/2024 10:45 AM Hattie Miranda, CAR MANAGER [facility]1 OPPT M[facility] M[facility] 1 03/08/2024 9:45 AM Kayden Iyer, PT [facility]1 OPPT M[facility] M[facility] 1 03/16/2024 2:15 PM Adrayn Swenson MD [facility] Specialty Contact Information for Follow-ups Duane Corcoran MD Specialty: Family Medicine [address] [place] [id number] Next Steps: Schedule an appointment as soon as possible for a visit Comments: Follow up with established provider: 1 week Questions: To provider: DUANE CORCORAN Anuj, MD Specialty: Gastroenterology, Internal Medicine Relationship: Consulting Physician [address] [place] [address] [address] [facility] [address] Next Steps: Schedule an appointment as soon as possible for a visit Comments: Follow up with established provider: Other (specify) 8 weeks for repeat Endoscopy to evaluate the healing Questions: To provider: JAYA RIVERA [address] [address] Next Steps: Follow up Questions: Reason for Referral: PT Evaluate and Treat Therapy options discussed with patient?: Yes Location provided for therapy services is: Patient requested/Patient preferred Please select the performing region: [facility] Please select the performing department: B ON OP PT # of visits: 24 Referral Status: Ready for Initial Scheduling Janis Hanson MD Specialty: Nephrology, Internal Medicine 3 [facility] [address] [facility] [address] Next Steps: Follow up Instructions: please keep dialysis appointments as scheduled Please schedule an appointment with the following provider(s): Duane Corcoran MD [address] [facility] 210 [facility] [address] Schedule an appointment as soon as possible for a visit Jaya Rivera MD [address] [place] [address] [address] [facility] [address] Schedule an appointment as soon as possible for a visit [address] [address] Janis Hanson MD 3 [facility] [address] [facility] [phone] Follow up please keep dialysis appointments as [...] Marques M.D. KH: ROSA MARIA Report ID: [id number] ReadingLocation: [id number] MRI Shoulder Left WO Contrast Result Date: [...] Loc Jon M.D. AT T: Report ID: [id number] Reading Location: [id number] XR Chest 1 Vw Portable Result Date: [...] Loc Jon M.D. AT: AT Report ID: [id number] Reading Location: [id number] Recent Labs: Recent Labs Lab Units 02/01/24 1205 01/31/24 0737 01/30/24 0834 WBC K/cumm 7.9 7.3 9.4 HEMOGLOBIN g/dL 10.1* 8.5* 9.6* HEMATOCRIT % 30.6* 25.8* 28.5* PLATELETS K/cumm 269 241 237 Recent Labs Lab Units 02/01/24 1205 01/31/24 0701/30/24 0834 01/29/241951 WBC K/cumm 7.9 7.3 9.4 9.0 HEMOGLOBIN g/dL 10.1* 8.5* 9.6* 7.4* HEMATOCRIT % 30.6* 25.8* 28.5* 22.9* PLATELETS K/cumm 269 241 237 322 NEUTROS PCT % 65.8 55.0 -- 60.7 LYMPHS PCT % 24.5 32.7 -- 28.3 MONOS PCT % 6.2 7.9 -- 8.2 EOS PCT % 2.7 3.8 -- 2.3 Recent Labs Lab Units 02/01/24 1212 01/31/2483901/31/2473601/30/2435 01/30/24 0834 01/29/24 1836 SODIUM mmol/L -- -- 136 -- 140 137 POTASSIUM PLASMA mmol/L -- -- 4.0 -- 4.1 4.0 CHLORIDE mmol/L -- -- 98 -- 101 96* CO2 mmol/L -- -- 26 -- 24 27 BUN SERUM mg/dL -- -- 19 -- 36* 32* CREATININE mg/dL -- -- 3.00* -- 3.30* 3.10* [id number] mL/min/1.73 m2 -- -- 16* -- 14* 15* GLUCOSE mg/dL -- -- 79 -- 111 172 POC GLUCOSE MONITOR mg/dL 100 < > -- < > -- -- CALCIUM mg/dL -- -- 8.3* -- 8.8 9.1 ALBUMIN g/dL -- -- 3.3* -- 3.6 4.0 < > = values in this interval not displayed. Recent Labs Lab Units 02/01/24 1212 02/01/24 0701/31/24195301/31/2483901/31/2473601/30/2435 01/30/2434 01/29/24 1836 SODIUM mmol/L -- -- -- -- 136 -- 140 137 POTASSIUM PLASMA mmol/L -- -- -- -- 4.0 -- 4.1 4.0 CHLORIDE mmol/L -- -- -- -- 98 -- 101 96* CO2 mmol/L -- -- -- -- 26 -- 24 27 ANIONGAP mmol/L -- -- -- -- [...] 108 01/31/2024 Implant: Implants Type Not Specified bContext Duramax Vascpak Safesheath D-Pro 15.5fr 24cm Kit Catheter [id number] - [id number] - Implanted Inventory item: Dropmysite Duramax Vascpak Safesheath D-pro 15.5fr 24cm Kit Catheter [id number] Model/Cat number: [id number] Process Area Supervisor: bContext Lot number: [id number] As of 10/15/2023 Status: Implanted General Precautions [...] Please follow up with primary care physician animal sitter and previously scheduled specialty appointments Active LDAs (If Blank, None Found): Peripheral IV 01/29/24 20 G Anterior;Proximal;Right Forearm (Active) Placement Date/Time: 01/29/241948 Type: Angiocath Length of Catheter: 1.88 in Size (Gauge): 20 G Location Orientation: Anterior;Proximal;Right Location: Forearm Site Prep: Chlorhexidine Comfort Measures: Distraction;Position of comfort Techn... Peripheral IV 01/29/24 20 G Left;Posterior Wrist (Active) Placement Date/Time: 01/29/24 235 Size (Gauge): 20 G Location Orientation: Left;Posterior [...] Care Everywhere. * Gastrointestinal Bleeding (Discharge Care) ([place]) * Gastritis (Discharge Care) ([place]) * End Stage Kidney Disease (Discharge Care) ([place]) * Type 2 Diabetes Management for Adults (Discharge Care) ([place]) * Benztropine Mesylate (By mouth) ([place]) * Hydralazine (By mouth) ([place]) * Pantoprazole (By mouth) ([place]) * Sucralfate (By mouth) ([place]) documented in this encounter Medications at Time [...] as needed for rhinitis FreeStyle Madhav 3 [place] misc Use Madhav 3 reader to scan [...] current use of insulin ([facility]) USE DIRECTED FOUR TIMES DAILY 100 each [...] total) by mouth daily 30 tablet 02/01/2024 sucralfate (CARAFATE) suspension 1 gram/10 mL Take [...] mcg 100 mcg intravenous Weekly - Janis pacheco MD dextrose (GLUTOSE) 40 % gel 15 g 15 g oral Q15 Min PRN Herve Tavera MD Or dextrose (D10W) 10% bolus 250 mL 250 mL intravenous Q15 Min PRN Herve Tavera MD ferrous sulfate tablet 325 mg 325 mg oral Daily with breakfast Herve Tavera MD 325 mgat 02/01/24 09 gabapentin (NEURONTIN) capsule 100 mg 100 mg oral Once per day on Thursday Herve Tavera MD 100 mg at 01/30/24 175 glucagon injection 1 mg 1 mg intramuscular Q30 Min PRN Herve Tavera MD hydrALAZINE (APRESOLINE) tablet 25 mg 25 mg oral BID Michoacano Gibson MD 25 mg at 02/01/24 09 HYDROcodone-acetaminophen (NORCO) 5-325 mg per tablet 1 tablet 1 tablet oral Q4H PRN Michoacano Gibson MD 1 tablet at 01/31/24 1646 insulin glargine (LANTUS, SEMGLEE) 100 unit/mL injection 10 Units 0.15 Units/kg subcutaneous Nightly Herve Tavera MD 10 Units at 01/31/24 210 insulin lispro (HumaLOG, ADMELOG) 100 unit/mL injection 0-4 Units 0-4 Units subcutaneous Nightly Herve Tavera MD insulin lispro (HumaLOG, ADMELOG) 100 unit/mL injection 0-5 Units 0-5 Units subcutaneous TID with meals Herve Tavera MD 1 Units at 01/30/24 175 methocarbamoL (ROBAXIN) tablet 750 mg 750 mg oral TID Herve Tavera MD 750 mg at 02/01/24 09 NIFEdipine (PROCARDIA XL/ADALAT CC) extended release tablet [...] Herve Tavera MD 2 mg at 01/31/24 2103 sodium chloride 0.9% flush 0.5-20 mL 0.5-20 mL intra-catheter Q8H [facility] Herve Tavera MD 10 mL at 01/31/24 2105 sodium chloride 0.9% flush 0.5-20 mL 0.5-20 mL intra-catheter PRN Herve Tavera MD sodium chloride 0.9% infusion 30 mL/hr intravenous Continuous DuvallMalcolm bermudez MD Stopped at 01/31/24 1400 sucralfate (CARAFATE) [...] LABs Recent Labs Lab Units 02/01/24 0725 01/31/24 1954 01/31/24 1713 01/31/24 1344 01/31/24 1125 01/31/24 0840 [...] Markie Ryan MD 02/01/2024 * Amanda Hodges, ANG - 02/01/2024 9:02 AM CDT Physical Therapy [...] Pumps 10 Supine Supine-Exercises Bilateral;Lower extremity Reps/Sets 10/ Supine-Motion AROM Supine-Exercise Comments Pt able to [...] (from Physical Therapy) Active Problems Problem: [place] [facility] [place] Date: 01/31/24 Goal Start Date Expected End Date End Date PT [facility] - [facility] 01/31/24 02/14/24 -- Goal Details: Pt will ambulate 150 ft with ww and SBA.-progressing Goal Start Date Expected End Date End Date PT [facility] - [facility] 01/31/24 02/14/24 -- Goal Details: Pt will perform bed<>chair transfer with ww, SBA, and no cues for proper hand placement.-progressing Goal Start Date Expected End Date End Date PT [facility] - [facility] 01/31/24 02/14/24 -- Goal Details: Pt will perform BLE AA/AROM exercises x 10 reps until minimal cues required.-progressing. Commercial Service Technician Services Utilized: NO Educated the patient to [...] Herve Tavera MD 40 mg at 01/30/24 215 [Transfer Hold] benztropine (COGENTIN) tablet 2 mg 2 mg oral Daily Herve Tavera MD 2 mg at 01/31/24 0902 [Transfer Hold] Carrier Fluids for Secondary Infusion - 0.9% Sodium Chloride 30 mL intravenous PRN Herve Tavera MD [Transfer Hold] carvediloL (COREG) tablet 3.125 mg 3.125 mg oral BID with meals (bkfst, dinner) Herve Tavera MD 3.125 mg at 01/31/24 0903 [Transfer Hold] darbepoetin isaiah (ARANESP) injection 100 [...] breakfast Herve Tavera MD 325 mg at 01/31/24 0903 [Transfer Hold] gabapentin (NEURONTIN) capsule 100 mg 100 mg oral Once per day on Thursday Herve Tavera MD 100 mg at 01/30/24 1756 [Transfer Hold] glucagon injection 1 mg 1 mg intramuscular Q30 Min PRN Herve Tavera MD [Transfer Hold] hydrALAZINE (APRESOLINE) tablet 25 mg 25 mg oral BID Michoacano Gibson MD [Transfer Hold] insulin glargine (LANTUS, SEMGLEE) [...] Tavera MD 1 Units at 01/30/24 1755 [Transfer Hold] methocarbamoL (ROBAXIN) tablet 750 mg 750 mg oral TID Herve Tavera MD750 mg at 01/31/24 0903 [Transfer Hold] NIFEdipine (PROCARDIA XL/ADALAT CC) [...] mL IV Syringe 40 mg intravenous BID TelemMichoacano funk MD 40 mg at 01/31/24 0904 [Transfer Hold] polyethylene glycol (MIRALAX) packet 17 g 17 g oral Daily PRN Herve Tavera MD [Transfer Hold] ramelteon (ROZEREM) tablet 8 mg 8 mg oral Nightly PRN Herve Tavera MD [Transfer Hold] risperiDONE (RisperDAL) tablet 2 mg 2 mg oral Nightly Herve Tavera MD2 mg at 01/30/242150 simethicone (MYLICON) 66.7 mg/mL oral drops PRN Malcolm Duvall MD 40 mg at 01/31/24 1326 [Transfer Hold] sodium chloride 0.9% flush 0.5-20 mL 0.5-20 mL intra-catheter Q8H SOL Herve Taverabuchi, MD 10 mL at 01/31/24 0522 [Transfer Hold] sodium chloride 0.9% flush 0.5-20 mL 0.5-20 mL intra-catheter PRN Herve Tavera MD [Transfer Hold] sodium chloride 0.9% flush 0.5-20 mL 0.5-20 mL intra-catheter Q8H SOL Malcolm Duvall MD [Transfer Hold] sodium chloride 0.9% flush [...] -- -- 26 -- -- -- -- 27 BUN SERUM mg/dL -- [...] Using 4-Wheeled walker Prior Function Level of [place] Needs assistance with ADLs;Independent with ambulation;Independent functionaltransfers;Needs [...] x 10 reps until minimal cues required. Commercial Service Technician Services Utilized: NO Educated the patient to [...] HD. ESRD noted. Hemoglobin stable 8 - . GI planning for endoscopy today. NPO. Continue [...] signed by Salvador Marques M.D. KH: ROSA AMRIA Report ID: [id number] Reading Location: [id number] MRI Shoulder Left WO Contrast Result Date: [...] with superimposed full-thickness tear of the entirety ofthe supraspinatus tendon as well as anterior and [...] tendon in the proximal bicipital groove as wellas intra-articular long head biceps tendon reflective of a chronic tear. There is circumferential fraying of the glenoid labrum. There is overall moderate glenohumeral joint chondrosis reflective of rotator cuff arthropathy with superior positioning of the humeral head with respect to the acromion with remodeling of the undersurface of the acromion and superior humeral head. There is a small gleno humeral joint effusion with mild synovitis extending to [...] chronic tear. 4. Moderate left glenohumeral joint chondrosisreflective of rotator cuff arthropathy. Small left glenohumeral joint effusion with slight synovitis extending to the subacromial subdeltoid and subdeltoid bursa due to full-thickness rotator cuff tear. 5. Moderate left acromioclavicular joint osteoarthritis. THIS IS AN ELECTRONICALLY VERIFIED FINAL REPORT 01/29/2024 7:57 PM - Electronically signed by Loc Jon M.D.AT T: Report ID: [id number] Reading Location: [id number] XR Chest 1 Vw Portable Result Date: [...] Loc Jon M.D. AT: AT Report ID: [id number] Reading Location: [id number] Dexa Axial Skeleton Bone Density 1 or 2 Site Result Date: 01/22/2024 Narrative: EXAM DESCRIPTION: DEXA AXIAL SKELETON BONE DENSITY 1 OR MORE SITES REASON FOR STUDY: 73 y/o year old F with given history of: Post menopausal status. History of taking vitamin-D. History of end-stage renal disease. Process Area Supervisor/Model: HoloCuris Horizon A (S/N [id number]) CLINICAL INFORMATION:Current height: 61 inches Maximum height: [...] Rafaela Paulino M.D. TW: TW Report ID: [id number] Reading Location: [id number] Screening Mammogram Bilateral W Stalin Result Date: [...] age 40, based on guidelines of the [place] [employer] (ACR Practice Parameter for the Performance of Screening and Diagnostic Mammography) and [place] [employer]. For women [...] Date of Discharge: 2-3 days Case discussed Merchandise Carrier Bedside nurse [facility] LookIt Voice recognition software MModal Fluency Direct may have been used dictate and transcribe this document. Export Packer variances may occur. Despite proofreading, typographical errors [...] Consulting Physician (Nephrology) Dulce Vega RN as Vice Chancellor Jimbo Strauss MD as Consulting Physician (Nephrology) MDM ASSESSMENT/PLAN Sixto Chakraborty is a 73 y.o. [...] Date Anemia Arthritis CHF (congestive heart failure) ([facility]) (HCC) CKD (chronic kidney disease) stage V requiring chronic dialysis (HCC) Dementia ([facility]) Depression Diabetic neuropathy (HCC) GERD (gastroesophageal reflux disease) HL (hearing loss) Hyperlipidemia Hypertension Movement disorder Osteomyelitis (HCC) Rotator cuff tear, left Schizophrenia ([facility] [...] needed for mild pain (pain scale 1-4) ProviderJoe MD aspirin 81 mg chewable tablet 12/28/23 [...] Joe Ballard MD flash glucose scanning reader [facility] Use Madhav 3 reader to scan Madhav 3 sensor 06/30/23 Smith Gibbs MD flash glucose sensor (FreeStyle Madhav 2 Sensor) kit Use to continually monitor glucose, change every 14 days 03/24/23 Radha Franco NP fluticasone propionate (FLONASE) 50 mcg/actuation nasal spray Administer 2 sprays into each nostrildaily as needed for rhinitis Joe Ballard MD FreeStyle Madhav 3 [place] [facility] Use Madhav 3 reader to scan Madhav 3 sensor 09/25/23 Joe Ballard MD gabapentin (NEURONTIN) 100 mg capsule Take 100 mg 3 times per week after hemodialysis. 01/11/24 Duane Corcoran MD hydrALAZINE (APRESOLINE) 25 mg tablet Take 2 tablets (50 mg total) by mouth 3 (three) times a day 01/06/24 02/05/24 Kiley Nye NP insulin glargine 100 unit/mL (3 mL) pen [...] needle, diabetic (Easy Touch) 32 gauge x /32 needle USE DIRECTED FOUR TIMES DAILY 12/02/23 [...] MD Home Medications verified and updated by Supervisor Feed House: [] Yes, completed [] No, to be [...] Range Crossmatch Compatible Unit number for crossmatch [id number] Prepare RBC: 1 Units Collection Time: 01/29/24 11:20 PM Result Value Ref Range Units requested 1 Units requested Ready Unit Number [id number] Product code [id number] Blood Expiration Date [id number] Product Blood Type (for scanning) 7300 Product [...] gets Dialysis T//Thu TECHNIQUE: CTA scan of theabdomen and pelvis [...] Marques M.D. KH: ROSA MARIA Report ID: [id number] Reading Location: [id number] MRI Shoulder Left WO Contrast Result Date: [...] Loc Jon M.D. AT T: Report ID: [id number] Reading Location: [id number] XR Chest 1 Vw Portable Result Date: [...] Loc Jon M.D. AT: AT Report ID: [id number] Reading Location: [id number] Dexa Axial Skeleton Bone Density 1 or 2 Site Result Date: 01/22/2024 Narrative: EXAM DESCRIPTION: DEXA AXIAL SKELETON BONE DENSITY 1 OR MORE SITES REASON FOR STUDY: 73 y/o year old F with given history of: Post menopausal status. History of taking vitamin-D. History of end-stage renal disease. Process Area Supervisor/Model: TerraLUX A (S/N [id number]) CLINICAL INFORMATION:Current height: 61 inches Maximum height: [...] Rafaela Paulino M.D. TW: TW Report ID: [id number] Reading Location: [id number] Screening Mammogram Bilateral W Stalin Result Date: [...] age 40, based on guidelines of the [place] [employer] (ACR Practice Parameter for the Performance of Screening and Diagnostic Mammography) and [place] [employer]. For women [...] services. DISCLAIMER: This chart was created using [employer] dictation software. Efforts were made by me to ensure accuracy, however some errors may be present due to limitations of this technology and occasionally words are not transcribed as intended. Electronically signed: Herve Tavera MD 01/30/2024 / 1:32 AM documented in this encounter Procedure Notes * Malcolm Duvall MD - 01/31/2024 12:18 PM CDTAssociated Order(s): EGD [facility] GI ENDOSCOPY Patient Name: Sixto Chakraborty Procedure Date: 01/31/2024 12:18 PM Date of : 1950 Admit Type: Inpatient Age: 73 Gender: Female Attending MD: Malcolm Duvall MD Room: [facility] ENDOSCOPY ROOM 01 Note Status: Finalized Procedure: [...] On: 01/31/2024 12:18 PM Recognized by the [place] [employer] for promoting quality [...] daily with breakfast flash glucose scanning reader [facility] Use Madhav 3 reader to scan Madhav 3 sensor 1 each 0 flash glucose sensor (FreeStyle Madhav 2 Sensor) kit Use to continually monitor glucose, change every 14 days 6 kit 3 fluticasone propionate (FLONASE) 50 mcg/actuation nasal spray Administer 2 sprays into each nostrildaily as needed for rhinitis FreeStyle Madhav 3 [place] mis Use Madhav 3 reader to scan [...] 100 % Most Recent : Vitals: 01/30/24 09 BP: (!) 178/74 Pulse: 64 Resp: Temp: [...] Range Crossmatch Compatible Unit number for crossmatch [id number] Prepare RBC: 1 Units Collection Time: 01/29/24 11:20 PM Result Value Ref Range Units requested 1 Units requested Ready Unit Number [id number] Product code [id number] Blood Expiration Date [id number] Product Blood Type (for scanning) 7300 Product [...] patient. Malcolm Duvall MD Voice recognition software From The Bench Direct was used dictate and transcribe this document. Export Packer variances may occur. Despite proofreading, typographical errors [...] Date Anemia Arthritis CHF (congestive heart failure) ([facility]) (HCC) CKD (chronic kidney disease) stage V requiring chronic dialysis (HCC) Dementia (HCC) Depression Diabetic neuropathy (HCC) GERD (gastroesophageal reflux disease) HL (hearing loss) Hyperlipidemia Hypertension Movement disorder Osteomyelitis (HCC) Rotator cuff tear, left Schizophrenia (HCC) Type 2 diabetes mellitus (HCC) Allergies: No Known Allergies Social History Tobacco [...] 50 mg 50 mg oral TID Herve Tavear MD insulin glargine (LANTUS, SEMGLEE) 100 unit/mL [...] soft midway to remainder of treatment. Dr goodwin. VS monitored and Floor Nurse given report. [...] Date Anemia Arthritis CHF (congestive heart failure) ([facility]) (HCC) CKD (chronic kidney disease) stage V requiring chronic dialysis ([facility]) Dementia ([facility]) Depression Diabetic neuropathy ([facility]) GERD (gastroesophageal reflux disease) HL (hearing loss) [...] Triage Vitals Temp Pulse Resp BP SpO2 01/29/24 1813 01/29/24 1813 01/29/24 1813 01/29/24 1813 01/29/24 181 36.7 ??C (98 ??F) 86 18 (!) 183/69 100 % Temp src Heart Rate Source Patient Position BP Location FiO2 (%) 01/29/24 1813 01/29/24 2355 01/29/24 2339 01/29/24 2339 -- Temporal Monitor Lying Right arm Height Height Method Weight Weight Method 01/29/24 1813 01/29/24 1813 01/29/24 18101/29/24 181 1.575 m (5' 2 ) [...] CROSSMATCH Crossmatch Compatible Unit number for crossmatch [id number] TROPONIN T HIGH-SENSITIVITY 6-HOUR PREPARE RBC Units requested 1 Units requested Ready Unit Number [id number] Product code [id number] Blood Expiration Date Product Blood Type (for [...] the pt. By: Carmel Rushing Time: 01/29 015 Comment: Discussed pt's case w/ Dr. Tavera, Hospitalist, who agrees to accept the pt for an inpatient admission. Anticipate greater than 2 midnight admission. By: Carmel Rushing Final diagnoses: Upper GI bleeding Acute blood loss anemia Complete tear of left rotator cuff, unspecified whether traumatic Hypertension, unspecified type ESRD (end stage renal disease) on dialysis ([facility]) This note is prepared by Carmel Rushing, [...] bubble study shows no evidence of intracardiac fymuk-rq-fkrm shunting, i.e. no patent foramen ovale (PFO). Trace aortic regurgitation. Treatment: asa, Lipitor, carvedilol, hydralazine, nifedipine, continues home meds, monitor labs, VS. References: CHF Diagnostic Criteria CHF The commonly used [place] Diagnostic Criteria for Heart Failure requires the [...] The epidemiology of congestive heart failure: the [place] Heart Study perspective - PMC (nih.gov) Congestive Heart Failure - StatPearls - NCBI [facility] (nih.gov) Acute Heart Failure: Definition, Classification and Epidemiology - [facility] (nih.gov) From the ICD-10-CM Coding Guidelines, [...] Goals for the Shift: safety, tolerate diet Skilled Nursing Patient Centered Goal for Treatment: discharger to home with daughter Summary: Frequent safety checks and comfort rounds provided throughout shift. Safety maintained. Voiding without difficulty. No complaints of pain. Waiting on daughter to come greens picker. Discharging home with outpatient therapy per case management. Patient will get dialysis tomorrow. No complaints voiced at this time. Problem: Discharge Planning Goal: Understanding discharge needs will improve 02/01/2024 1242 by Kim Alves RN Outcome: Completed 02/01/2024 1026 by Kim Alves RN Flowsheets (Taken 01/30/2024 1029 by Mikayla Ndiaye RN) Understanding of discharge needs will improve: [...] Interview Note Information Obtained From: Patient (02/01/24 1144) Admission Source: ED from home Impression: Pt presented with c/o arm pain, coffee ground emesis. 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 Pt went home with OP PT at that time. Dx upper GIB. EGD completed 01/30. GI, Nephrology following. Plan Includes: Pt from home with daughter, uses walker. Pt daughter is paid caregiver. Pt has been doing OP PT at [facility]. Pt wants to continue OP PT at d/c. Daughter will transport home at d/c. 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 Home care service name and 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: Daughter is paid caregiver Outpatient Services: Yes Therapy: Physical Therapy Location: [facility] Durable Medical Equipment: Walker (no wheels) Living Arrangements: Children Type of Residence: Private residence (02/01/24 1144) SDOH: Transportation: In the past 12 months, has lack of transportation kept you from medical appointments or from getting medications?: No In the past 12 months, has lack of transportation kept you from meetings, work, or from getting things needed for daily living?: No (02/01/24 1152) Financial Resource: How hard is it for you to pay for the very basics like food, housing, medical care, and heating?: Not very hard (02/01/24 1152) Housing: In the last 12 months, was there a time when you were not able to pay the mortgage or rent on time?: No In the past 12 months, how many times have you moved where you were living?: 0 At any time in the past 12 months, were you homeless or living in a care home (including now)?: No (02/01/241151) Utilities: No, (02/01/241151) Social Connections: In a typical week, how many times do you talk on the phone with family, friends, or neighbors?: More than three times a week How often do you get together with friends or relatives?: More than three times a week How often do you attend mormonism or mu-ism services?: More than 4 times per year Do you belong to any clubs or organizations such as mormonism groups, unions, fraternal or athletic groups, or school groups?: No How often do you attend meetings of the clubs or organizations you belong to?: Never Are you , , , , never , or living with a partner?: (02/01/241151) Food Insecurity: Within the past 12 months, you worried that your food would run out before you got the money to buymore.: Never true Within the past 12 months, the food you bought just didn't last and you didn't have money to get more.: Never true (02/01/241151) Dialysis: Dialysis History Start End Type Center Comments [facility] Dialysis Center Information [facility] Address: [address] [place] [phone] Anticipated Level of Care: Anticipated discharge level of care: Private residence Pt/Family agrees with Anticipated Level of Care: Yes (02/01/241143) Patient expects to be Discharged to: Private residence, (02/01/241143) Patient's Identified Problem/Goal Problem: Ensure acute medical [...] Collaboration with Patient, Provider, Direct Care Nurse, Kiln Cleaner, and other members of theHealth Care Team to assure needed interventions completed. 2. Return patient to optimal level of self-care post discharge. 3. Associate Editor will follow for Discharge Planning - interventions as needed 4. Anticipated level of care at discharge 5. Planned Discharge Disposition Mikayla Quinonez RN * Plan of Care - Bart Rodarte RN - 02/01/2024 6:53 AM CDT Goals: Clinical Goals for the Shift: patient safety, pain control Skilled Nursing Patient Centered Goal for Treatment: discharger to [...] for the Shift: SAFETY COMFORT PAIN MANAGEMENT Sizing Machine Tender Patient Centered Goal for Treatment: discharger to [...] flowsheets. . Plan of care discussed with patient/contracts representative, including as it relates to Principal Problem: Upper GI bleeding Active Problems: Coffee ground emesis Patient progressing. Clinical goals for the shift EGD, pain control. Education provided includes Fall Prevention. Patient and/or contracts representative Verbalizes understanding. Will continue to monitor. [...] for the Shift: SAFETY COMFORT PAIN MANAGEMENT Sizing Machine Tender Patient Centered Goal for Treatment: discharger to home with daughter * Plan of Care - Mikayla Ndiaye RN - 01/30/2024 10:29 AM CDT Goals: Clinical Goals for the Shift: MOnitoring of vitals, labs, pain management, comfort and safety Skilled Nursing Patient Centered Goal for Treatment: discharger to home with daughter Summary: * Plan of Care - Mikayla Ndiaye RN - 01/30/2024 8:28 AM CDT Goals: Clinical Goals for the Shift: MOnitoring of vitals, labs, pain management, comfort and safety Sizing Machine Tender Patient Centered Goal for Treatment: discharger to [...] stable. GI evaluation recommendations pending. Continue Protonix Constitutional: NAD, comfortable, lying in bed [...] Psychiatric: alert, oriented x3 Michoacano Gibson MD [facility] Hospitalist Internal Medicine * Plan of Care - Elvia Frederick RN - 01/30/2024 6:33 AM CDT Problem: Discharge Planning Goal: Understanding discharge needs will improve Outcome: Ongoing Problem: Fall Risk Goal: Ability to state ways to decrease the risk of falls will improve Outcome: Ongoing Flowsheets (Taken 01/30/2024 0508) Ability to state ways to decrease the risk of falls will improve: Teach fall prevention measures Goal: Will remain free from falls Outcome: Ongoing Flowsheets (Taken 01/30/2024 0508) Will remain free from falls: Assess risk factors for falls Implement fall prevention measures Goal: Will remain free from injury from falls Outcome: Ongoing Flowsheets (Taken 01/30/2024 0508) Will remain free from injury from falls: [...] renal function maintained Outcome: Ongoing Flowsheets (Taken 01/30/2024507) Hemodynamic stability and optimal renal function maintained: [...] vitals, labs, pain management, comfort and safety Sizing Machine Tender Patient Centered Goal for Treatment: discharger to home with daughter Summary: Plan of care reviewed with patient. Unsure if patient fully understands is impulsive so bed alarm is in place and patient close to the desk. documented in this encounter Plan of Treatment Upcoming Encounters Date Type Department Care Team (Latest Contact Info) Description 07/13/2024 9:00 AM [facility] Hospital Encounter [facility] [address] [place] [address] Jaya Rivera MD [facility]5 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 [address] GAIN[address] [place] [address] ESOPHAGOGASTRODUODENOSCOPY Scheduled Orders Name Type Priority Associated Diagnoses Order Schedule Surgical pathology Pathology and Cytology Timed Coffee ground emesis Release Upon Ordering for 1 Occurrences starting 01/31/2024 Scheduled Procedures Name Priority Associated Diagnoses Date/Ti me ESOPHAGOGASTRODUODENOSCOPY Anemia, unspecified type Gastritis without bleeding, unspecified chronicity, unspecified gastritis type 07/13/2024 9:00 AM TYPEWRITER ALIGNER COLONOSCOPY Iron deficiency anemia due to chronic [...] AND SCREEN STAT 01/29/2024 10:28 PM CDT [facility]/INJURED PATIENT INIT 30-74 MIN [...] * POCT glucose (02/01/2024 12:12 PM CDT) [facility] Signature Glucose, POC 100 70 - 199 mg/dL Comment:Testing performed by : [address] [address] Glucose comment 1 Use This Result NILSA RODRIGES Comment:Testing performed by : [address] [address] Glucose comment 2 RN/MD Notified NILSA RODRIGES Comment:Testing performed by : [address] [address] Blood 02/01/2024 12:1 2 PM CDT 02/01/2024 12:12 PM CDT us Michoacano Gibson MD LAB POCT ORDERABLES - DEVICE Final Result NILSA [address] [facility] Department [place] [address] * Differential, auto (02/01/2024 12:05 PM CDT) Neutrophil abs 5.2 1.5 - 6.5 K/cumm Comment:Testing performed by : [address] [address] Imm gran abs 0.0 0.0 - 0.1 K/cumm NILSA Comment:Testing performed by : [address] [address] Lymphocyte abs 1.9 0.8 - 3.3 K/cumm NILSA Comment:Testing performed by : [address] [address] Monocyte abs 0.5 0.2 - 0.8 K/cumm NILSA Comment:Testing performed by : [address] [address] Eosinophil abs 0.2 0.0 - 0.5 K/cumm NILSA Comment:Testing performed by : [address] [address] Basophil abs 0.0 0.0 - 0.1 K/cumm NILSA Comment:Testing performed by : [address] [address] Neutrophil pct 65.8 % [facility] Comment: Interpretive Data Percent cell count reference ranges are not reported, since discordance with absolute values may lead to misinterpretation of CBC data. Current Interpretive Data was last revised on 2017. Testing performed by: [address] [address] Imm gran pct 0.3 % NILSA Comment: Interpretive Data Percent cell count reference ranges are not reported, since discordance with absolute values may lead to misinterpretation of CBC data. Current Interpretive Data was last revised on 2017. Testing performed by: [address] [address] Lymphocyte pct 24.5 % NILSA Comment: Interpretive Data Percent cell count reference ranges are not reported, since discordance with absolute values may lead to misinterpretation of CBC data. Current Interpretive Data was last revised on 2017. Testing performed by: [address] [address] Monocyte pct 6.2 % NILSA Comment: Interpretive Data Percent cell count reference ranges are not reported, since discordance with absolute values may lead to misinterpretation of CBC data. Current Interpretive Data was last revised on 2017. Testing performed by: [address] [address] Eosinophil pct 2.7 % NILSA Comment: Interpretive Data Percent cell count reference ranges are not reported, since discordance with absolute values may lead to misinterpretation of CBC data. Current Interpretive Data was last revised on 2017. Testing performed by: [address] [address] Basophil pct 0.5 % NILSA Comment: Interpretive Data Percent cell count reference ranges are not reported, since discordance with absolute values may lead to misinterpretation of CBC data. Current Interpretive Data was last revised on 2017. Testing performed by: [address] [address] Blood 02/01/2024 12:0 5 PM CDT 02/01/2024 12:27 PM CDT Michoacano Gibson MD LAB BLOOD ORDERABLES Final Result [facility] [address] [facility] Department [place] [address] * (ABNORMAL) CBC with auto differential (02/01/2024 12:05 PM CDT) Pathologist [facility] WBC 7.9 3.8 - 9.9 K/cumm Comment:Testing performed by : [address] [address] Hgb 10.1(L) 11.9 - 15.5 g/dL NILSA RODRIGES Comment:Testing performed by : [address] [address] Hct 30.6(L) 35.6 - 45.5 % NILSA Comment:Testing performed by : [address] [address] Plt 269 150 - 400 K/cumm NILSA Comment:Testing performed by : [address] [address] MPV 10.1 9.1 - 12.3 fL NILSA Comment:Testing performed by : [address] [address] RBC 3.28(L) 3.90 - 5.20 M/cumm NILSA Comment:Testing performed by : [address] [address] MCV 93.3 81.3 - 96.4 fL NILSA Comment:Testing performed by : [address] [address] MCH 30.8 27.1 - 33.3 pg NILSA Comment:Testing performed by : [address] [address] MCHC 33.0 32.3 - 35.7 g/dL NILSA Comment:Testing performed by : [address], [address] RDW CV 15.7(H) 11.1 - 14.9 % NILSA Comment:Testing performed by : [address], [address] RDW SD 53.4(H) 35.7 - 48.1 fL NILSA Comment:Testing performed by : [address] [address] NRBC abs 0.00 0.00 - 0.01 K/cumm NILSA Comment:Testing performed by : [address] [address] Blood 02/01/2024 12:0 5 PM CDT 02/01/2024 12:27 PM CDT Michoacano Gibson MD LAB BLOOD ORDERABLES Final Result Performing Organization Address [facility] Co de Phone Number NILSA [facility] [place] [address] * POCT glucose (02/01/2024 7:25 AM CDT) Glucose, POC 83 70 - 199 mg/dL Comment:Testing performed by : [address] [address] Glucose comment 1 Use This Result NILSA Comment:Testing performed by : [address] [address] Glucose comment 2 RN/MD Notified NILSA RODRIGES Comment:Testing performed by : [address] [address] Blood 02/01/2024 7:25 AM CDT 02/01/2024 7:25 AM CDT Michoacano Gibson MD LAB POCT ORDERABLES - DEVICE Final Result Performing Organization Address [facility] de Phone Number NILSA [address] [address] * POCT glucose (01/31/2024 7:54 PM CDT) Glucose, POC 108 70 - 199 mg/dL Comment:Testing performed by : [address] [address] Glucose comment 1 Use This Result NILSA Comment:Testing performed by : [address] [address] Blood 01/31/2024 7:54 PM CDT 01/31/2024 7:54 PM CDT Michoacano Gibson MD LAB POCT ORDERABLES - DEVICE Final Result Performing Organization Address City/[facility] Co de Phone Number NILSA [facility] [place] [address] * POCT glucose (01/31/2024 5:13 PM CDT) Glucose, POC 105 70 - 199 mg/dL Comment:Testing performed by : [facility], [address] [place] [address]., [address] Glucose comment 1 Use This Result NILSA RODRIGES Comment:Testing performed by : [facility], [address] [place] [address]., [address] Blood 01/31/2024 5:13 PM CDT 01/31/2024 5:13 PM CDT us Michoacano Gibson MD LAB POCT ORDERABLES - DEVICE Final Result NILSA RODRIGES [address] [facility] Department [place] [address] * XR Radius Ulna Left 2 Views [...] PM T: ??01/31/2024 6:07 PM Report ID: [id number] Reading Location: ??[id number] Procedure Note Aleksandar Shaw MD - 01/31/2024 [...] Aleksandar Shaw M.D. NS: NS Report ID: [id number] Reading Location: [id number] Michoacano Gibson MD IMG XR PROCEDURES Fi [...] PM T: ??01/31/2024 6:07 PM Report ID: [id number] Reading Location: ??[id number] Procedure Note Aleksandar Shaw MD - 01/31/2024 [...] Aleksandar Shaw M.D. NS: NS Report ID: [id number] Reading Location: [id number] Michoacano Gibson MD IMG XR PROCEDURES Fi [...] PM T: ??01/31/2024 6:04 PM Report ID: [id number] Reading Location: ??[id number] Procedure Note Aleksandar Shaw MD - 01/31/2024 [...] Aleksandar Shaw M.D. NS: NS Report ID: [id number] Reading Location: [id number] Michoacano Gibson MD IMG XR PROCEDURES Fi nal Result * POCT glucose (01/31/2024 1:44 PM CDT) [facility] Signature Glucose, POC 100 70 - 199 mg/dL Comment:Testing performed by : [facility], [address] [place] [address]., [address] Glucose comment 1 Use This Result NILSA RODRIGES Comment:Testing performed by : [address] [address] Blood 01/31/2024 1:44 PM CDT 01/31/2024 1:44 PM CDT Michoacano Gibson MD LAB POCT ORDERABLES - DEVICE Final Result NILSA RODRIGES [address] [facility] Department of Laboratories [place], [place] [id number] * Surgical pathology (01/31/2024 1:28 PM CDT) Gastric/Stomach biopsy 01/31/2024 1:28 PM CDT 01/31/2024 1:50 PM CDT Narrative 02/02/2024 9:55 AM CDT [facility] Department of Pathology [address] [place] [address] ?? Note to Patients: ??This report may [...] : ??1950 (Age: 73) Gender: ??F Address: ??[address] [place] [address] [place] [address] [facility] #: [id number] Service: Medical Location: Patient Type: MHE INPATIENT ? Taken: 01/31/2024 Received: 01/31/2024 Accessioned: 02/01/2024 Reported: 02/02/2024 Physician(s): Malcolm Duvall M.D. Duane Corcoran M.D. Diagnosis: A. ??Stomach, antrum, biopsy ? [...] cm. ??Labeled B 1. ??Jar 0. ? mr2mhb/02/01/2024 09:35 Maddie Crane MS, PA (ASC Microscopic slide review and interpretation for this case was performed at [facility], Department of Surgical Pathology, [address] [facility] [place], [id number], ??[facility], [place] ??[address] ?? CLIA # [id number] Malcolm Duvall MD LAB PATHOLOGY ORDER ARIADNA Final Result * EGD (01/31/2024 12:18 PM CDT) Anatomical Region Laterality Modality Other Narrative Procedure Note Malcolm Duvall MD - 01/31/2024 12:[address] [facility] GI ENDOSCOPY Patient Name: Sixto Chakraborty Procedure Date: 01/31/2024 12:18 PM Date of : 1950 Admit Type: Inpatient Age: 73 Gender: Female Attending MD: Malcolm Marsh MD Room: [facility] ENDOSCOPY ROOM 01 Note Status: Finalized Procedure: [...] On: 01/31/2024 12:18 PM Recognized by the [employer] for promoting quality in endoscopy us Malcolm Duvall MD ENDOSCOPY PROCEDURE S Final Result * POCT glucose (01/31/2024 11:25 AM CDT) Pathologist [facility] Glucose, POC 96 70 - 199 mg/dL Comment:Testing performed by : [facility], [address] [place] [address]., [address] Blood 01/31/2024 11:2 5 AM CDT 01/31/2024 11:25 AM CDT Michoacano Gibson MD LAB POCT ORDERABLES - DEVICE Final Result [facility] [address] [facility] Department [place] [address] * ECG 12 lead (01/31/2024 11:06 AM CDT) Ventricular Rate EKG/Min 78 BPM [facility] Atrial Rate 78 BPM [facility] [place]-Interval (MSEC) 164 ms [facility] QRS-Interval (MSEC) 70 ms [facility] QT-Interval (MSEC) 404 ms [facility] QTc 460 ms [facility] P [place] 77 degrees [facility] R [place] -11 degrees [facility] T [place] 63 degrees [facility] Diagnosis Normal sinus rhythm Normal ECG When compared with ECG of 29-JAN-2024 18:23, No significant change was found Confirmed by COLIN PINTO M.D. ([id number]) on 02/06/2024 5:59:05 PM [facility] 01/31/2024 11:0 6 AM CDT 02/06/2024 5:59 PM CDT Michoacano Gibson MD ECG ORDERABLES Blessing l Result [facility] * POCT glucose (01/31/2024 8:40 AM CDT) Pathologist [facility] Glucose, POC 98 70 - 199 mg/dL Comment:Testing performed by : [facility], [address] [place] [address]., [address] Glucose comment 1 Use This Result NILSA Comment:Testing performed by : [facility], [address] [place] [address]., [address] Blood 01/31/2024 8:40 AM CDT 01/31/2024 8:40 AM CDT Michoacano Gibson MD LAB POCT ORDERABLES - DEVICE Final Result Performing Organization Address City/[facility] Co de Phone Number CARLOS ENRIQUEELLEN [address] [facility] Department [place] [address] * (ABNORMAL) eGFR (01/31/2024 7:37 AM CDT) [facility] eGFR 16(L) >=60 mL/min/1. 73 m2 Comment: [...] reviewed 2021. Testing performed by: [facility], [address] [place] [address]., [address] Blood 01/31/2024 7:37 AM CDT 01/31/2024 8:26 AM CDT Herve Tavera MD LAB BLOOD ORDERABLES Final Result NILSA RODRIGES [facility] Department [place] [address] * Differential, auto (01/31/2024 7:37 AM CDT) Neutrophil abs 4.0 1.5 - 6.5 K/cumm Comment:Testing performed by : [address] [address] Imm gran abs 0.0 0.0 - 0.1 K/cumm NILSA Comment:Testing performed by : [address] [address] Lymphocyte abs 2.4 0.8 - 3.3 K/cumm NILSA Comment:Testing performed by : [address] [address] Monocyte abs 0.6 0.2 - 0.8 K/cumm NILSA Comment:Testing performed by : [address] [address] Eosinophil abs 0.3 0.0 - 0.5 K/cumm NILSA Comment:Testing performed by : [address] [address] Basophil abs 0.0 0.0 - 0.1 K/cumm NILSA Comment:Testing performed by : [address] [address] Neutrophil pct 55.0 % NILSA RODRIGES Comment: Interpretive Data Percent cell count reference ranges are not reported, since discordance with absolute values may lead to misinterpretation of CBC data. Current Interpretive Data was last revised on 2017. Testing performed by: [address] [address] Imm gran pct 0.3 % [facility] Comment: Interpretive Data Percent cell count reference ranges are not reported, since discordance with absolute values may lead to misinterpretation of CBC data. Current Interpretive Data was last revised on 2017. Testing performed by: [address] [address] Lymphocyte pct 32.7 % [facility] Comment: Interpretive Data Percent cell count reference ranges are not reported, since discordance with absolute values may lead to misinterpretation of CBC data. Current Interpretive Data was last revised on 2017. Testing performed by: [address] [address] Monocyte pct 7.9 % [facility] Comment: Interpretive Data Percent cell count reference ranges are not reported, since discordance with absolute values may lead to misinterpretation of CBC data. Current Interpretive Data was last revised on 2017. Testing performed by: [address] [address] Eosinophil pct 3.8 % [facility] Comment: Interpretive Data Percent cell count reference ranges are not reported, since discordance with absolute values may lead to misinterpretation of CBC data. Current Interpretive Data was last revised on 2017. Testing performed by: [address] [address] Basophil pct 0.3 % [facility] Comment: Interpretive Data Percent cell count reference ranges are not reported, since discordance with absolute values may lead to misinterpretation of CBC data. Current Interpretive Data was last revised on 2017. Testing performed by: [address] [address] Blood 01/31/2024 7:37 AM CDT 01/31/2024 8:26 AM CDT Herve Tavera MD LAB BLOOD ORDERABLES Final Result [facility] [address] [facility] Department [place] [address] * (ABNORMAL) CBC with auto differential (01/31/2024 7:37 AM CDT) [facility] Signature WBC 7.3 3.8 - 9.9 K/cumm Comment:Testing performed by : [address] [address] Hgb 8.5(L) 11.9 - 15.5 g/dL NILSA Comment:Testing performed by : [address] [address] Hct 25.8(L) 35.6 - 45.5 % NILSA Comment:Testing performed by : [address] [address] Plt 241 150 - 400 K/cumm NILSA Comment:Testing performed by : [address] [address] MPV 10.1 9.1 - 12.3 fL NILSA Comment:Testing performed by : [address] [address] RBC 2.76(L) 3.90 - 5.20 M/cumm NILSA Comment:Testing performed by : [address] [address] MCV 93.5 81.3 - 96.4 fL NILSA Comment:Testing performed by : [address] [address] MCH 30.8 27.1 - 33.3 pg NILSA Comment:Testing performed by : [address] [address] MCHC 32.9 32.3 - 35.7 g/dL NILSA Comment:Testing performed by : [address] [address] RDW CV 16.8(H) 11.1 - 14.9 % NILSA Comment:Testing performed by : [address], [address] RDW SD 56.7(H) 35.7 - 48.1 fL NILSA RODRIGES Comment:Testing performed by : [address] [address] NRBC abs 0.00 0.00 - 0.01 K/cumm NILSA RODRIGES Comment:Testing performed by : [address] [address] Blood 01/31/2024 7:37 AM CDT 01/31/2024 8:26 AM CDT Herve Tavera MD LAB BLOOD ORDERABLES Final Result NILSA [address] [facility] Department [place] [address] * (ABNORMAL) Comprehensive metabolic panel (01/31/2024 7:37 AM CDT) Sodium 136 135 - 145 mmol/L Comment:Testing performed by : [address] [address] Potassium, pl 4.0 3.3 - 4.9 mmol/L NILSA Comment:Testing performed by : [address] [address] Chloride 98 97 - 110 mmol/L NILSA Comment:Testing performed by : [address] [address] CO2 26 22 - 32 mmol/L NILSA Comment:Testing performed by : [address] [address] Anion gap 12 2 - 15 mmol/L NILSA Comment:Testing performed by : [address] [address] BUN 19 6 - 25 mg/dL NILSA Comment:Testing performed by : [address] [address] Creatinine 3.00(H) 0.60 - 1.10 mg/dL NILSA Comment:Testing performed by : [address] [address] Glucose 79 70 - 199 mg/dL NILSA RODRIGES Comment: Interpretive Data Fasting glucose >/= 126 [...] was last revised 2022. Testing performed by: [address] [address] Calcium 8.3(L) 8.5 - 10.3 mg/dL NILSA Comment:Testing performed by : [address] [address] Bilirubin, total 0.2 0.1 - 1.2 mg/dL NILSA Comment:Testing performed by : [address] [address] Protein, pl 6.0(L) 6.5 - 8.5 g/dL NILSA Comment:Testing performed by : [address] [address] Albumin 3.3(L) 3.5 - 5.0 g/dL NILSA Comment:Testing performed by : [address] [address] Alk phos 76 40 - 130 Units/L NILSA Comment:Testing performed by : [address] [address] ALT 10 7 - 45 Units/L NILSA Comment:Testing performed by : [address] [address] AST 9(L) 10 - 45 Units/L NILSA Comment:Testing performed by : [address] [address] Blood 01/31/2024 7:37 AM CDT 01/31/2024 8:26 AM CDT Herve Tavera MD LAB BLOOD ORDERABLES Final Result Performing Organization Address City/[facility]/ZIP Co de Phone Number NILSA [address] [place] [address] * POCT glucose (01/30/2024 10:12 PM CDT) Glucose, POC 185 70 - 199 mg/dL Comment:Testing performed by : [address] [address] Blood 01/30/2024 10:1 2 PM CDT 01/30/2024 10:12 PM CDT Michoacano Gibson MD LAB POCT ORDERABLES - DEVICE Final Result Performing Organization Address [facility] de Phone Number NILSA [address] [place] [address] * (ABNORMAL) POCT glucose (01/30/2024 8:50 PM CDT) Glucose, POC 226(H) 70 - 199 mg/dL Comment:Testing performed by : [address] [address] Glucose comment 1 Use This Result NILSA Comment:Testing performed by : [address] [address] Blood 01/30/2024 8:50 PM CDT 01/30/2024 8:50 PM CDT Michoacano Gibson MD LAB POCT ORDERABLES - DEVICE Final Result Performing Organization Address [facility] Co de Phone Number NILSA [address] [place] [place] [address] * POCT glucose (01/30/2024 4:49 PM CDT) Glucose, POC 156 70 - 199 mg/dL Comment:Testing performed by : [address] [address] Glucose comment 1 Use This Result NILSA Comment:Testing performed by : [address] [address] Blood 01/30/2024 4:49 PM CDT 01/30/2024 4:49 PM CDT Michoacano Gibson MD LAB POCT ORDERABLES - DEVICE Final Result Performing Organization Address [facility] de Phone Number NILSA [address] [address] * POCT glucose (01/30/2024 1:42 PM CDT) Glucose, POC 104 70 - 199 mg/dL Comment:Testing performed by : [address] [address] Glucose comment 1 Use This Result NILSA Comment:Testing performed by : [address] [address] Blood 01/30/2024 1:42 PM CDT 01/30/2024 1:42 PM CDT Result [facility] Michoacano Gibson MD LAB POCT ORDERABLES - DEVICE Final Result Performing Organization Address [facility] de Phone Number NILSA [address] [address] * POCT glucose (01/30/2024 8:35 AM CDT) Glucose, POC 110 70 - 199 mg/dL Comment:Testing performed by : [address] [address] Glucose comment 1 Use This Result NILSA Comment:Testing performed by : [address] [address] Blood 01/30/2024 8:35 AM CDT 01/30/2024 8:35 AM CDT Michoacano Gibson MD LAB POCT ORDERABLES - DEVICE Final Result Performing Organization Address [facility] Co de Phone Number NILSA [address] [facility] [place] [address] * (ABNORMAL) eGFR (01/30/2024 8:34 AM CDT) eGFR 14(L) >=60 mL/min/1. 73 m2 Comment: [...] reviewed 2021. Testing performed by: [facility], [address] [place] [address]., [address] Blood 01/30/2024 8:3 4 AM CDT 01/30/2024 9:07 AM CDT us Janis Hanson MD LAB BLOOD ORDERABLES Final Res ult Performing Organization Address City/[facility]/ZIP Co de Phone Number NILSA [address] [facility] [place] [address] * Hepatitis B Surface Antigen Blood (01/30/2024 8:34 AM CDT) HepBsAg Nonreactive Nonreactive Blood 01/30/2024 8:34 AM CDT 01/30/2024 10:19 AM CDT us Janis Hanson MD LAB MICROBIOLOGY - GENERAL ORD ERABLES Final Result [facility] [address] [facility] Department [place] [address] * (ABNORMAL) Comprehensive metabolic panel (01/30/2024 8:34 AM CDT) Sodium 140 135 - 145 mmol/L Comment:Testing performed by : [address] [address] Potassium, pl 4.1 3.3 - 4.9 mmol/L NILSA Comment:Testing performed by : [address] [address] Chloride 101 97 - 110 mmol/L NILSA Comment:Testing performed by : [address] [address] CO2 24 22 - 32 mmol/L NILSA Comment:Testing performed by : [address] [address] Anion gap 15 2 - 15 mmol/L NILSA Comment:Testing performed by : [address] [address] BUN 36(H) 6 - 25 mg/dL NILSA Comment:Testing performed by : [address] [address] Creatinine 3.30(H) 0.60 - 1.10 mg/dL NILSA Comment:Testing performed by : [address] [address] Glucose 111 70 - 199 mg/dL NILSA Comment: Interpretive [...] was last revised 2022. Testing performed by: [address] [address] Calcium 8.8 8.5 - 10.3 mg/dL NILSA Comment:Testing performed by : [address] [address] Bilirubin, total 0.5 0.1 - 1.2 mg/dL NILSA Comment:Testing performed by : [address] [address] Protein, pl 6.8 6.5 - 8.5 g/dL NILSA Comment:Testing performed by : [address] [address] Albumin 3.6 3.5 - 5.0 g/dL NILSA Comment:Testing performed by : [address] [address] Alk phos 107 40 - 130 Units/L NILSA Comment:Testing performed by : [address] [address] ALT 14 7 - 45 Units/L NILSA Comment:Testing performed by : [address] [address] AST 12 10 - 45 Units/L NILSA Comment:Testing performed by : [address] [address] Blood 01/30/2024 8:34 AM CDT 01/30/2024 9:07 AM CDT us Janis Hanson MD LAB BLOOD ORDERABLES Final Res ult NILSA [address] [facility] Department of Laboratories [place], [place] [id number] * (ABNORMAL) CBC without differential (01/30/2024 8:34 AM CDT) [facility] Signature WBC 9.4 3.8 - 9.9 K/cumm Comment:Testing performed by : [address] [address] Hgb 9.6(L) 11.9 - 15.5 g/dL NILSA Comment:Testing performed by : [address] [address] Hct 28.5(L) 35.6 - 45.5 % NILSA Comment:Testing performed by : [address] [address] Plt 237 150 - 400 K/cumm NILSA Comment:Testing performed by : [address] [address] MPV 10.0 9.1 - 12.3 fL NILSA Comment:Testing performed by : [address], [address] RBC 3.05(L) 3.90 - 5.20 M/cumm NILSA Comment:Testing performed by : [address] [address] MCV 93.4 81.3 - 96.4 fL NILSA Comment:Testing performed by : [address] [address] MCH 31.5 27.1 - 33.3 pg NILSA Comment:Testing performed by : [address], [address] MCHC 33.7 32.3 - 35.7 g/dL NILSA Comment:Testing performed by : [address], [address] RDW CV 17.4(H) 11.1 - 14.9 % NILSA Comment:Testing performed by : [address], [address] RDW SD 58.7(H) 35.7 - 48.1 fL NILSA Comment:Testing performed by : [address], [address] NRBC abs 0.00 0.00 - 0.01 K/cumm NILSA RODRIGES Comment:Testing performed by : [address] [address] Blood 01/30/2024 8:34 AM CDT 01/30/2024 9:07 AM CDT Janis Hanson MD LAB BLOOD ORDERABLES Final Res ult Performing Organization Address City/[facility]/ZIP Co de Phone Number NILSA [address] [place] [place] [address] * Transfuse RBC (01/30/2024 3:09 AM CDT) Blood Julio Landeros DO BLOOD TRANSFUSION ORDERABLES F inal Result Performing Organization Address [facility] Co de Phone Number CARLOS ENRIQUE[address] [place] [address] * Transfuse RBC: 1 Units (01/30/2024 3:09 [...] Data last revised 2020. Testing performed by: [address] [address] Trop T hs pct delta -9 % NILSA RODRIGES Comment:Testing performed by : [address] [address] Trop T hs interp Equivocal NILSA RODRIGES Comment:Testing performed by : [address] [address] Blood 01/30/2024 1:32 AM CDT 01/30/2024 1:42 AM CDT us Corinne Mesa NP LAB BLOOD ORDERABLES Final Resul t NILSA MH [address] [facility] Department [place] [address] * CTA Abdomen Pelvis (01/29/2024 11:36 PM [...] last night vomited coffee ground emesis. ? note ?Chief Complaint ?? Patient presents with [...] AM T: ??01/30/2024 12:43 AM Report ID: [id number] Reading Location: ??[id number] Procedure Note Salvador Marques MD - 01/30/2024 [...] Marques M.D. KH: ROSA MARIA Report ID: [id number] Reading Location: [id number] Julio Landeros DO IMG CT PROCEDURES Final Result * Prepare RBC: 1 Units (01/29/2024 11:20 PM CDT) Pathologist [facility] Units requested 1 Comment:Testing performed by : [address] [address] Units requested Ready [facility] Comment:Testing performed by : [address] [address] Unit Number [id number] Product code [id number] [facility] Blood Expiration Date [facility] Product Blood Type (for scanning) 7300 [facility] Product Blood Type BPOS [facility] Dispense Status DISPENSED [facility] Blood 01/29/2024 11:2 0 PM CDT 01/29/2024 11:20 PM CDT Julio [employer] BLOOD BANK PRODUCT ORDERABLES Final Result Performing Organization Address City/[facility]/ZIP Co de Phone Number [place] [address] [facility] [place] [address] * Crossmatch (01/29/2024 10:28 PM CDT) Pathologist [facility] Crossmatch Compatible [facility] Unit number for crossmatch [id number] [facility] Blood 01/29/2024 10:2 8 PM CDT 01/29/2024 10:35 PM CDT Juliodimas Landeros LAB BLOOD BANK TEST ORDERABLES Final Result Performing Organization Address City/[facility]/ZIP Co de Phone Number [address] [place] [address] * Antibody screen (01/29/2024 10:28 PM CDT) Regi, indirect, Gel Interpretation Negative ABSC Comment:Testing performed by : [address] [address] Blood 01/29/2024 10:2 8 PM CDT 01/29/2024 10:35 PM CDT Narrative [facility] - 01/29/2024 11:15 PM CDT Has the patient had Daratumumab or Isatuximab in the past 6 months?->Unknown [employer] LAB BLOOD BANK TEST ORDERABLES Final Result Performing Organization Address [facility] de Phone Number [address] [employer] [place], [place] [id number] * ABO/Rh (01/29/2024 10:28 PM CDT) ABO/Rh B Positive Comment:Testing performed by : [address] [address] Blood 01/29/2024 10:2 8 PM CDT 01/29/2024 10:35 PM CDT Narrative [facility] - 01/29/2024 11:15 PM CDT Has the patient had Daratumumab or Isatuximab in the past 6 months?->Unknown [email or web address] BLOOD BANK TEST ORDERABLES Final Result Performing Organization Address [facility] de Phone Number [address] [address] * (ABNORMAL) Troponin T high-sensitivity 4-hour (01/29/2024 10:28 PM CDT) Trop T hs 101(H) <=14 ng/L Comment: Ref Range High Interpretive Data For further hscTnT resources including the diagnostic algorithm and an aid in interpretation, copy and paste this link: https://nrl.testcatalog.org/show/hsTrop Current Interpretive Data last revised 2020. Testing performed by: [address] [address] Trop T hs pct delta -1 % NILSA Comment:Testing performed by : [facility], [address] [place] [address]., [address] Trop T hs interp Insignificant NILSA Comment:Testing performed by : [facility], [address] [place] [address]., [address] Blood 01/29/2024 10:2 8 PM CDT 01/29/2024 10:35 PM CDT us Corinne Mesa [employer] LAB BLOOD ORDERABLES Final Resul t NILSA [address] [facility] Department [place] [address] * [place] CR[facility] ILL/INJURED PATIENT INIT 30-74 MIN (01/29/2024 9:47 PM CDT) Narrative Julio Landeros DO - 01/29/2024 9:47 PM CDT Julio Landeros DO ? 01/30/2024 ??2:06 AM Critical Care Performed [...] * (ABNORMAL) Ferritin (01/29/2024 8:58 PM CDT) Pathologist [facility] Ferritin 624(H) 15 - 150 ng/mL Comment:Testing performed by : [address] [address] Blood 01/29/2024 8:58 PM CDT 01/29/2024 9:02 PM CDT Juloi Landeros DO LAB BLOOD ORDERABLES Final Res ult Performing Organization Address [facility] Co de Phone Number CARLOS ENRIQUE[address] [place] [address] * (ABNORMAL) Iron profile w/ IBC (01/29/2024 8:58 PM CDT) Pathologist [facility] Iron 59 35 - 145 mcg/dL Comment:Testing performed by : [address] [address] TIBC 182(L) 250 - 400 mcg/dL NILSA Comment:Testing performed by : [address] [address] Transferrin saturation 32 20 - 50 % NILSA Comment:Testing performed by : [address] [address] Blood 01/29/2024 8:58 PM CDT 01/29/2024 9:02 PM CDT Julio Landeros DO LAB BLOOD ORDERABLES Final Res ult Performing Organization Address [facility] Co de Phone Number [address] [place] [address] * (ABNORMAL) Troponin T high-sensitivity 2-hour (01/29/2024 8:58 PM CDT) Pathologist [facility] Trop T hs 100(H) <=14 ng/L Comment: Ref Range High Interpretive Data For further hscTnT resources including the diagnostic algorithm and an aid in interpretation, copy and paste this link: https://nrl.testcatalog.org/show/hsTrop Current Interpretive Data last revised 2020. Testing performed by: [address] [address] Trop T hs pct delta -2 % NILSA Comment:Testing performed by : [address] [address] Trop T hs interp Insignificant NILSA Comment:Testing performed by : [address] [address] Blood 01/29/2024 8:58 PM CDT 01/29/2024 9:02 PM CDT Corinne Mesa [employer]PER[employer] LAB BLOOD ORDERABLES Edited Resu lt - Final Performing Organization Address City/[facility]/ZIP Co de Phone Number [address] [place] [address] * (ABNORMAL) Urinalysis, microscopic only (01/29/2024 7:52 PM CDT) WBC, ur 0-5 0 - 5 /HPF Comment:Testing performed by : [address] [address] RBC, ur 0-2 0 - 2 /HPF NILSA Comment:Testing performed by : [address] [address] Epithelial cells, squamous, ur 11-20(A) 0 - 5 /HPF NILSA Comment:Testing performed by : [address] [address] Bacteria, ur Trace(A) NILSA Comment:Testing performed by : [address] [address] Culture Reflex Comment Reflex conditions for urine culture (WBC >10) not met. NILSA Comment:Testing performed by : [address] [address] Urine 01/29/2024 7:52 PM CDT 01/29/2024 8:12 PM CDT Kiley Briones PA LAB URINE ORDERABLES F inal Result Performing Organization Address City/[facility]/ZIP Co de Phone Number [place] [phone] [facility] [place] [address] * Differential, auto (01/29/2024 7:52 PM CDT) Neutrophil abs 5.5 1.5 - 6.5 K/cumm Comment:Testing performed by : [address] [address] Imm gran abs 0.0 0.0 - 0.1 K/cumm [facility] Comment:Testing performed by : [address] [address] Lymphocyte abs 2.5 0.8 - 3.3 K/cumm [facility] Comment:Testing performed by : [address] [address] Monocyte abs 0.7 0.2 - 0.8 K/cumm [facility] Comment:Testing performed by : [address] [address] Eosinophil abs 0.2 0.0 - 0.5 K/cumm [facility] Comment:Testing performed by : [address] [address] Basophil abs 0.0 0.0 - 0.1 K/cumm [facility] Comment:Testing performed by : [address] [address] Neutrophil pct 60.7 % [facility] Comment: Interpretive Data Percent cell count reference ranges are not reported, since discordance with absolute values may lead to misinterpretation of CBC data. Current Interpretive Data was last revised on 2017. Testing performed by: [address] [address] Imm gran pct 0.3 % [facility] Comment: Interpretive Data Percent cell count reference ranges are not reported, since discordance with absolute values may lead to misinterpretation of CBC data. Current Interpretive Data was last revised on 2017. Testing performed by: [address] [address] Lymphocyte pct 28.3 % [facility] Comment: Interpretive Data Percent cell count reference ranges are not reported, since discordance with absolute values may lead to misinterpretation of CBC data. Current Interpretive Data was last revised on 2017. Testing performed by: [address] [address] Monocyte pct 8.2 % [facility] Comment: Interpretive Data Percent cell count reference ranges are not reported, since discordance with absolute values may lead to misinterpretation of CBC data. Current Interpretive Data was last revised on 2017. Testing performed by: [address] [address] Eosinophil pct 2.3 % [facility] Comment: Interpretive Data Percent cell count reference ranges are not reported, since discordance with absolute values may lead to misinterpretation of CBC data. Current Interpretive Data was last revised on 2017. Testing performed by: [address] [address] Basophil pct 0.2 % [facility] Comment: Interpretive Data Percent cell count reference ranges are not reported, since discordance with absolute values may lead to misinterpretation of CBC data. Current Interpretive Data was last revised on 2017. Testing performed by: [address] [address] Blood 01/29/2024 7:52 PM CDT 01/29/2024 8:11 PM CDT Kiley CUEVA LAB BLOOD ORDERABLES F inal Result Performing Organization Address City/[facility]/ZIP Co de Phone Number [address] Department [place] [address] * Sepsis Lactate w/ Reflex (01/29/2024 7:52 PM CDT) Sepsis Lactate 0.9 0.7 - 2.0 mmol/L Comment:Testing performed by : [address] [address] Blood 01/29/2024 7:52 PM CDT 01/29/2024 8:11 PM CDT us Julio Landeros DO LAB BLOOD ORDERABLES Final Res ult Performing Organization Address City/[facility]/ZIP Co de Phone Number CERNER [address] [place] [place] [address] * Protime-INR (01/29/2024 7:52 PM CDT) PT 12.6 12.0 - 14.6 sec Comment:Testing performed by : [address] [address] INR 0.9 0.9 - 1.2 NILSA Comment: Ref Range High Interpretive data Oral anticoagulant therapeutic ranges: Venous thromboembolism prophylaxis or treatment: 2.0-3.0 CARDIOLOGY Standard range: 2.0-3.0 High-intensity range: 2.5-3.5 Refer to indication-specific guidelines for appropriate target ranges for prosthetic heart valve replacement. Current interpretive data was last revised on 2019. Testing performed by: [address] [address] Blood 01/29/2024 7:52 PM CDT 01/29/2024 8:11 PM CDT us Corinne Mesa LAB BLOOD ORDERABLES Final Resul t Performing Organization Address City/[facility] Co de Phone Number CARLOS ENRIQUE[address] [address] * aPTT (01/29/2024 7:52 PM CDT) aPTT 27 22 - 37 sec Comment: Interpretive data aPTT test has not been evaluated for monitoring heparin therapy. The anti-Xa is the preferred test. Current interpretive data was last revised on 2019. Testing performed by: [address] [address] Blood 01/29/2024 7:52 PM CDT 01/29/2024 8:11 PM CDT Corinne Mesa LAB BLOOD ORDERABLES Final Resul t [place] [id number] [facility] [place] [address] * (ABNORMAL) Urinalysis reflex to microscopic and culture Urine (01/29/2024 7:52 PM CDT) Color, ur Straw Yellow Comment:Testing performed by : [address] [address] Clarity, ur Clear Clear NILSA Comment:Testing performed by : [address] [address] Specific gravity, ur 1.007 1.003 - 1.030 NILSA Comment:Testing performed by : [address] [address] pH, urine 7.0 NILSA Comment: Interpretive Data ? Urine pH is affected by diet, medications, systemic acid-base disturbances, and renal tubular function. ??pH may affect urinary stone formation. ??For example, urine pH below 6.0 may help reduce the tendency for calcium phosphate stones and pH greater than 6.0 may reduce the tendency for uric acid stone formation. Source: [facility] [employer] Current Interpretive Data was last revised on 2017 Testing performed by: [address] [address] Protein, ur ql 2+(A) Negative NILSA Comment:Testing performed by : [address] [address] Glucose, ur ql Trace(A) Negative NILSA Comment:Testing performed by : [address] [address] Ketones, ur Negative Negative NILSA Comment:Testing performed by : [address] [address] Bilirubin, ur Negative Negative NILSA Comment:Testing performed by : [address] [address] Blood, ur Negative Negative NILSA Comment:Testing performed by : [address] [address] Urobilinogen, ur <2.0 <2.0 mg/dL NILSA Comment:Testing performed by : [address] [address] Nitrite, ur Negative Negative NILSA Comment:Testing performed by : [address] [address] Leukocyte esterase, ur 2+(A) Negative NILSA RODRIGES Comment:Testing performed by : [address] [address] UA reflex comment Reflex to microscopic UA will be performed. NILSA RODRIGES Comment:Testing performed by : [address] [address] Urine 01/29/2024 7:52 PM CDT 01/29/2024 8:11 PM CDT us Julio Landeros DO LAB MICROBIOLOGY - GENERAL ORD ERABLES Final Result NILSA RODRIGES [facility] Department [place] [address] * (ABNORMAL) CBC with auto differential (01/29/2024 7:52 PM CDT) WBC 9.0 3.8 - 9.9 K/cumm Comment:Testing performed by : [address] [address] Hgb 7.4(L) 11.9 - 15.5 g/dL NILSA RODRIGES Comment:Testing performed by : [address] [address] Hct 22.9(L) 35.6 - 45.5 % NILSA RODRIGES Comment:Testing performed by : [address] [address] Plt 322 150 - 400 K/cumm NILSA Comment:Testing performed by : [address] [address] MPV 10.0 9.1 - 12.3 fL NILSA RODRIGES Comment:Testing performed by : [address] [address] RBC 2.34(L) 3.90 - 5.20 M/cumm NILSA RODRIGES Comment:Testing performed by : [address] [address] MCV 97.9(H) 81.3 - 96.4 fL NILSA RODRIGES Comment:Testing performed by : [address] [address] MCH 31.6 27.1 - 33.3 pg NILSA RODRIGES Comment:Testing performed by : [address] [address] MCHC 32.3 32.3 - 35.7 g/dL NILSA Comment:Testing performed by : [address] [address] RDW CV 15.6(H) 11.1 - 14.9 % NILSA Comment:Testing performed by : [address] [address] RDW SD 55.9(H) 35.7 - 48.1 fL NILSA Comment:Testing performed by : [address], [place]., [address] NRBC abs 0.00 0.00 - 0.01 K/cumm NILSA Comment:Testing performed by : [address] [address] Blood (Blood, Venous) 01/29/2024 7:52 PM CDT 01/29/2024 8:11 PM CDT Julio Landeros DO LAB BLOOD ORDERABLES Final Res ult [facility] [address] [facility] Department [place] [address] * XR Chest 1 Vw Portable (01/29/2024 [...] 7:20 PM - Electronically signed by ??Loc oJn M.D. AT: AT D: ??01/29/2024 7:20 PM T: ??01/29/2024 7:20 PM Report ID: [id number] Reading Location: ??[id number] Procedure Note Loc Jon MD - 01/29/2024 [...] 01/29/2024 7:20 PM - Electronically signed by oLc Jon M.D. AT: AT Report ID: [id number] Reading Location: [id number] us Corinne Mesa [employer]LECT[employer] FURNACE OPERATOR IMG XR PROCEDURES Final Result * (ABNORMAL) eGFR [...] reviewed 2021. Testing performed by: [facility], [address] [place] [address]., [address] Blood 01/29/2024 6:36 PM CDT 01/29/2024 6:39 PM CDT us Julio Landeros DO LAB BLOOD ORDERABLES Final Res ult NILSA [address] [facility] Department [place] [address] * (ABNORMAL) Troponin T high-sensitivity series (baseline, 2hr, 4hr, 6hr) (01/29/2024 6:36 PM CDT) [facility] Trop T hs 102(H) <=14 ng/L Comment: Ref Range High Interpretive Data For further hscTnT resources including the diagnostic algorithm and an aid in interpretation, copy and paste this link: https://nrl.testcatalog.org/show/hsTrop Current Interpretive Data last revised 2020. Testing performed by: [address] [address] Blood 01/29/2024 6:36 PM CDT 01/29/2024 6:51 PM CDT Corinne Mesa E[employer] FURNACE OPERATOR LAB BLOOD ORDERABLES Final Resul t Performing Organization Address [facility] Co de Phone Number [address] [employer] [place] [address] * Lipase (01/29/2024 6:36 PM CDT) [facility] Lipase 12 10 - 99 Units/L Comment:Testing performed by : [address] [address] Blood (Blood, Venous) 01/29/2024 6:36 PM CDT 01/29/2024 6:39 PM CDT Julio Landeros DO LAB BLOOD ORDERABLES Final Res ult Performing Organization Address [facility]/ZIP Co de Phone Number [address] [place] [address] * (ABNORMAL) Comprehensive metabolic panel (01/29/2024 6:36 PM CDT) [facility] Sodium 137 135 - 145 mmol/L Comment:Testing performed by : [address] [address] Potassium, pl 4.0 3.3 - 4.9 mmol/L NILSA Comment:Testing performed by : [address] [address] Chloride 96(L) 97 - 110 mmol/L NILSA Comment:Testing performed by : [address], [place]., [address] CO2 27 22 - 32 mmol/L NILSA Comment:Testing performed by : [address] [address] Anion gap 14 2 - 15 mmol/L NILSA Comment:Testing performed by : [address], [place]., [address] BUN 32(H) 6 - 25 mg/dL NILSA Comment:Testing performed by : [address], [place]., [address] Creatinine 3.10(H) 0.60 - 1.10 mg/dL NILSA Comment:Testing performed by : [address] [address] Glucose 172 70 - 199 mg/dL NILSA [...] was last revised 2022. Testing performed by: [address] [address] Calcium 9.1 8.5 - 10.3 mg/dL NILSA Comment:Testing performed by : [address] [address] Bilirubin, total <0.2 0.1 - 1.2 mg/dL NILSA Comment:Testing performed by : [address] [address] Protein, pl 7.5 6.5 - 8.5 g/dL NILSA Comment:Testing performed by : [address], [place]., [address] Albumin 4.0 3.5 - 5.0 g/dL NILSA Comment:Testing performed by : [facility], [address] [place] [address], [address] Alk phos 124 40 - 130 Units/L NILSA Comment:Testing performed by : [address] [address] ALT 15 7 - 45 Units/L NILSA Comment:Testing performed by : [address] [address] AST 15 10 - 45 Units/L NILSA Comment:Testing performed by : [address], [address] Blood 01/29/2024 6:36 PM CDT 01/29/2024 6:39 PM CDT Julio Landeros DO LAB BLOOD ORDERABLES Final Res ult Performing Organization Address City/[facility] Co de Phone Number [facility] Department [place] [address] * ECG 12 lead (01/29/2024 6:23 PM CDT) Pathologist [facility] Ventricular Rate EKG/Min 86 BPM [facility] Atrial Rate 86 BPM [facility] W[place]-Interval (MSEC) 158 ms [facility] QRS-Interval (MSEC) 66 ms [facility] QT-Interval (MSEC) 390 ms [facility] QTc 466 ms [facility] P [place] 72 degrees [facility] R [place] 6 degrees [facility] T [place] 65 degrees [facility] Diagnosis Normal sinus rhythm Normal ECG When compared with ECG of 19-DEC-2023 14:29, No significant change was found Confirmed by COLIN PINTO M.D. ([id number]) on 01/30/2024 9:19:04 PM [facility] 01/29/2024 6:23 PM CDT 01/30/2024 9:19 PM CDT us Corinne Mesa NP ECG ORDERABLES Final Result Performing Organization Address [facility] Co de Phone Number [facility] documented in this encounter Visit Diagnoses Diagnosis Upper GI bleeding- Primary Unspecified, hemorrhage of gastrointestinal tract Upper GI bleeding Unspecified, hemorrhage of gastrointestinal tract Acute blood loss anemia Acute posthemorrhagic anemia Complete tear of left rotator cuff, unspecified whether traumatic Hypertension, unspecified type ESRD (end stage renal disease) on dialysis ([facility]) End stage renal disease Coffee ground emesis Hematemesis ESRD on dialysis ([facility]) [N18.6, Z99.2] End stage renal disease Unsteadiness on feet Syncope, unspecified syncope type Age-related physical debility Coffee ground emesis Hematemesis STEFANO (acute kidney injury) ([facility]) Coffee ground emesis Hematemesis Anemia, unspecified type Gastritis without bleeding, unspecified [...] Given 01/31/2024 3:38 PM CDT 650 mg atorvastatin (LIPITOR) tablet 40 mg 40 [...] Given 01/31/2024 9:03 AM CDT 3.125 mg darbepoetin isaiah (ARANESP) injection 100 mcg 100 mcg, intravenous, at 12 mL/hr, Administer over 1 Minutes, Weekly (for epoetins), First dose (after last reorder) on 02/06/24 at 2100, Indications: Anemia NOT associated with chemotherapy, radiation, or ESRDIndications:Anemia NOT associated with chemotherapy, radiation, or ESRD dextrose (D10W) 10% bolus 250 mL 250 [...] Call MD for each episode of hypoglycemia. [employer]CTOR STATES GLUTOSE-15 CONTAINS GLUCOSE 40% W/W (50% [...] on 01/30/24 at 1600, Give AFTER dialysis Given 01/30/2024 5:56 PM CDT 100 mg glucagon injection 1 mg 1 mg, intramuscular, Every 30 min PRN, low blood sugar, blood glucose less than 70 mg/dL AND no IV access AND unable to take PO glucose/juice., Starting on [facility] 01/30/24 at 0250, After Glucagon is administered, position [...] SWFI. Use immediately following reconstitution. hydrALAZINE (APRESOLINE) tablet 25 mg 25 mg, oral, 2 times daily, First dose (after last modification) on [place] 01/31/24 at 2100, Indications: hypertensionIndications:hypertension Given 02/01/2024 9:02 AM CDT 25 mg Given 01/31/2024 9:04 PM CDT 25 mg HYDROcodone-acetaminophen (NORCO) 5-325 mg per tablet 1 tablet 1 tablet, oral, Every 4 hours PRN, 3rd line for pain, Starting on [place] 01/31/24 at 1452, Indications: PainIndications:Pain Given 01/31/2024 4:46 PM CDT 1 tablet insulin glargine (LANTUS, SEMGLEE) 100 unit/mL injection 10 Units 10 Units (rounded from 9.525 Units = 0.15 Units/kg ? 63.5 kg), subcutaneous, Nightly, First dose on [facility] 01/30/24 at 2100, Do not hold if NPO. Do not mix with other insulins, Indications: Diabetes MellitusIndications:Diabetes Mellitus Given 01/31/2024 9:03 PM CDT 10 Units Left Lower Abdomen Given 01/30/2024 9:47 PM CDT 10 Units Le ft Upper Arm insulin lispro (HumaLOG, ADMELOG) 100 unit/mL injection 0-4 Units 0-4 Units, subcutaneous, Nightly, First dose on [facility] 01/30/24 at 2100, Blood glucose mg/dL: 199 or less: No insulin 200-249: add 1 unit 250-299: add 2 units 300-349: add 3 units and notify physician for adjustment of insulin orders. 350-399: add 4 units and notify physician for adjustment of insulin orders. Over 400: Notify physician for adjustment of insulin orders. Do NOT hold for NPO Status, Indications: Diabetes MellitusIndications:Diabetes Mellitus insulin lispro (HumaLOG, ADMELOG) 100 unit/mL [...] NPO Status, Indications: Diabetes MellitusIndications:Diabetes Mellitus Given 01/30/2024 5:55 PM CDT 1 Units Left Upper Abdomen methocarbamoL (ROBAXIN) tablet 750 mg 750 mg, [...] Indications: Nausea and VomitingIndications:Nausea and Vomiting pantoprazole DR (PROTONIX) extended release tablet 40 [...] Given 01/30/2024 9:51 PM CDT 2 mg simethicone (MYLICON) 66.7 mg/mL oral drops As needed, Starting on 01/31/24 at 1326, Intra-Op Given 01/31/2024 1:26 PM CDT 40 mg GI Tract sodium chloride 0.9% flush 0.5-20 mL 0.5-20 mL, intra-catheter, Every 8 hours scheduled, First dose on 01/30/24 at 0600, Flush volume based on line type and size. Given 02/01/2024 1:35 PM CDT 10 mL Given 01/31/2024 9:05 PM CDT 10 mL Given 01/31/2024 5:22 AM CDT 10 mL sodium chloride 0.9% infusion 30 mL/hr, intravenous, Continuous, Starting on 01/31/24 at 1300, Pre-Procedure (GI) New Bag 01/31/2024 1:10 PM CDT 30 mL/hr 30 mL/hr sucralfate (CARAFATE) 100 mg/mL oral suspension 1 g 1 g, oral, 4 times daily (with meals and nightly), First dose on 01/31/24 at 1430 Given 02/01/2024 1:35 PM CDT 1 g Given 02/01/2024 9:01 AM CDT 1 g Given 01/31/2024 9:03 PM CDT 1 g traMADoL (ULTRAM) tablet 25 mg 25 mg, oral, Every 8 hours PRN, 2nd line for pain, Starting on 01/30/24 at 0512 Given 01/31/2024 10:30 AM CDT 25 mg documented in this encounter Discontinued Medications [...] Felipe RN) 0858 (Given - Provider: Rose Spencer, ALIREZA)1310 (AUG Hold - Provider: Automatic Transfer Provider - Reason: Patient not available)1428 (MAR Unhold - Provider: Automatic Transfer Provider)1538 (Given - Provider: Rose Spencer RN)2113 (Not Given - Provider: Bart Rodarte RN - Reason: Patient/family refused) 0902 (Given - Provider: Kim Alves RN)1625 (Given - Provider: Kim Alves, ALIREZA) albumin [...] at 2100 2151 (Given - Provider: Dinora Felipe, ALIREZA) 1310 (AUG Hold - Provider: Automatic Transfer Provider - Reason: Patient not available)1428 (AUG Unhold - Provider: Automatic Transfer Provider)210 (Given - Provider: Bart Rodarte RN) benztropine (COGENTIN) tablet 2 mg 2 mg, oral, Daily, First dose on 01/30/24 at 0900 0814 (Given - Provider: Mikayla Ndiaye RN) 0902 (Given - Provider: Rose Spencer RN)1310 (AUG Hold - Provider: Automatic Transfer Provider - Reason: Patient not available)1428 (AUG Unhold - Provider: Automatic Transfer Provider) 0902 (Given - Provider: Kim Alves, ALIREZA) carvediloL (COREG) tablet 3.125 mg 3.125 mg, oral, 2 times daily with meals (bkfst, dinner), First dose on 01/30/24 at 0800 0814 (Given - Provider: Mikayla Ndiaye RN)1755 (Given - Provider: Mikayla Ndiaye RN) 0903 (Given - Provider: Rose Spencer, ALIREZA)1310 (AUG Hold - Provider: Automatic Transfer Provider - Reason: Patient not available)1428 (AUG Unhold - Provider: Automatic Transfer Provider)1812 (Given - Provider: Rose Spencer RN) 0902 (Given - Provider: Kim Alves, ALIREZA)1800 (Due) darbepoetin isaiah (ARANESP) injection 100 mcg 100 mcg, intravenous, at 12 mL/hr, Administer over 1 Minutes, Weekly (for epoetins), First dose (after last reorder) on 02/06/24 at 2100, Indications: Anemia NOT associated with chemotherapy, radiation, or ESRD 1310 (AUG Hold - Provider: Automatic Transfer Provider - Reason: Patient not available)1428 ([facility] Unhold - Provider: Automatic Transfer Provider) darbepoetin isaiah (ARANESP) injection 100 mcg (COMPLETED) 100 mcg, intravenous, Once (for epoetins), On 01/30/24 at 2345, For 1 dose, Indications: Anemia 2332 (Given - Provider: Dinora Felipe, RN) ferrous sulfate tablet 325 mg 325 mg, oral, Daily with breakfast, First dose on 01/30/24 at 0800 0814 (Given - Provider: Mikayla Ndiaye, ALIREZA) 0903 (Given - Provider: Rose Spencer RN)1310 ([facility] Hold - Provider: Automatic Transfer Provider - Reason: Patient not available)142 ([facility] Unhold - Provider: Automatic Transfer Provider) 09 (Given - Provider: Kim Alves, ALIREZA) gabapentin (NEURONTIN) capsule 100 mg 100 mg, oral, User Specified (Once per day on Thursday), First dose (after last modification) on 01/30/24 at 1600, Give AFTER dialysis 1756 (Given - Provider: Mikayla Ndiaye, ALIREZA) 1310 ([facility] Hold - Provider: Automatic Transfer Provider - Reason: Patient not available)142 ([facility] Unhold - Provider: Automatic Transfer Provider) hydrALAZINE (APRESOLINE) injection 10 mg (COMPLETED) 10 mg, intravenous, Administer over 2 Minutes, Once, On 01/30/24 at 0200, For 1 dose 0202 (Given - Provider: Lulú Kelly, ALIREZA) hydrALAZINE (APRESOLINE) tablet 25 mg 25 mg, oral, 2 times daily, First dose (after last modification) on 01/31/24 at 2100, Indications: hypertension 1310 ([facility] Hold - Provider: Automatic Transfer Provider - Reason: Patient not available)1428 ([facility] Unhold - Provider: Automatic Transfer Provider)2104 (Given [...] Reason: Contraindicated) 09 (Given - Provider: Rose Spencer RN) insulin glargine (LANTUS, SEMGLEE) 100 unit/mL injection 10 Units 10 Units (rounded from 9.525 Units = 0.15 Units/kg ? 63.5 kg), subcutaneous, Nightly, First dose on 01/30/24 at 2100, Do not hold if NPO. Do not mix with other insulins, Indications: Diabetes Mellitus 2146 (Given - Provider: Dinora Felipe, ALIREZA) 1310 (MAR Hold - Provider: Automatic Transfer Provider - Reason: Patient not available)142 (MAR Unhold - Provider: Automatic Transfer Provider)2102 (Given - Provider: Bart Rodarte, ALIREZA) insulin lispro (HumaLOG, ADMELOG) 100 unit/mL injection [...] hold for NPO Status, Indications: Diabetes Mellitus 4 (Not Given - Provider: Dinora Felipe RN - Reason: Order parameters not met) 1310 (MAR Hold - Provider: Automatic Transfer Provider - Reason: Patient not available)142 (MAR Unhold - Provider: Automatic Transfer Provider)2103 (Not [...] RN - Reason: Order parameters not met)1310 (MAR Hold - Provider: Automatic Transfer Provider - Reason: Patient not available)1428 (MAR Unhold - Provider: Automatic Transfer Provider)1500 (Not [...] dose 8 (New Bag - Provider: Dinora Felipe, ALIREZA) methocarbamoL (ROBAXIN) tablet 750 mg 750 mg, oral, 3 times daily, First dose on 01/30/24 at 0900, For 5 days 0814 (Given - Provider: Mikayla Ndiaye RN)1755 (Given - Provider: Mikayla Ndiaye RN)2151 (Given - Provider: Dinora Felipe, ALIREZA) 0903 (Given - Provider: Rose Spencer RN)1310 (MAR [...] Ndiaye RN) 0904 (Given - Provider: Rose Spencer RN)1310 ([facility] Hold - Provider: Automatic Transfer Provider - Reason: Patient not available)1428 ([facility] Unhold - Provider: Automatic Transfer Provider) 0901 (Given - Provider: Kim Alves RN) pantoprazole (PROTONIX) 40 mg in sodium chloride 0.9% 10 mL IV Syringe (CANCELED) 40 mg, intravenous, at 300 mL/hr, Administer over 2 Minutes, 2 times daily, First dose on 01/30/24 at 0900, For IV administration, reconstitute 40 mg vial with 10 mL sodium chloride 0.9% for injection for a final concentration of 4 mg/mL, Indications: GI Bleed 0814 (Given - Provider: Mikayla Ndiaye RN)2150 (Given - Provider: Dinora Felipe RN) 0904 (Given - Provider: Rose Spencer RN)1310 ([facility] Hold - Provider: Automatic Transfer Provider - Reason: Patient not available)1348 ([facility] Unhold - Provider: Michoacano Gibson MD) pantoprazole DR (PROTONIX) extended release tablet 40 mg 40 mg, oral, 2 times daily, First dose on 01/31/24 at 2100, Do not crush, chew, cut, dissolve, open or otherwise manipulate tablet/capsule., Indications: GI Bleed 2103 (Given - Provider: Bart Rodarte RN) 0901 (Given - Provider: Kim Alves RN) risperiDONE (RisperDAL) tablet 2 mg 2 mg, oral, Nightly, First dose on 01/30/24 at 2100 2151 (Given - Provider: Dinora Felipe RN) 1310 ([facility] Hold - Provider: Automatic Transfer Provider - Reason: Patient not available)1428 ([facility] Unhold - Provider: Automatic Transfer Provider)210 (Given - Provider: Bart Rodarte RN) sodium chloride 0.9% flush 0.5-20 mL 0.5-20 mL, intra-catheter, Every 8 hours scheduled, First dose on 01/30/24 at 0600, Flush volume based on line type and size. 0550 (Given - Provider: Elvia Frederick, ALIREZA)1756 (Given - Provider: Mikayla Ndiaye RN)2222 (Given - Provider: Dinora Felipe RN) 0522 (Given - Provider: Dinora Felipe RN)1310 ([facility] Hold - Provider: Automatic Transfer Provider - Reason: Patient not available)1400 (Not Given - Provider: Rose Spencer RN - Reason: Other - Comment: duplicaed)1428 ([facility] Unhold - Provider: Automatic Transfer Provider)210 (Given - Provider: Bart Rodarte RN) 0718 (Not Given - Provider: Bart Rodarte RN - Reason: Patient/family refused)1335 (Given - Provider: Kim Alves, ALIREZA) sucralfate (CARAFATE) 100 mg/mL oral suspension 1 g 1 g, oral, 4 times daily (with meals and nightly), First dose on 01/31/24 at 1430 1538 (Given - Provider: Rose Spencer RN)1812 (Not Given - Provider: Rose Spencer RN - Reason: Other - Comment: too close to previous dose)2103 (Given - Provider: Bart Rodarte RN) 0901 (Given - Provider: Kim Alves, ALIREZA)1335 (Given - Provider: Kim Alves, ALIREZA)1800 (Due) traMADoL (ULTRAM) tablet 50 mg (COMPLETED) 50 mg, oral, Once, On 01/30/24 at 0206, For 1 dose 0210 (Given - Provider: Lulú Kelly RN) Continuous Medication Order 01/30/2024 01/31/2024 02/01/2024 sodium chloride 0.9% infusion 30 mL/hr, intravenous, Continuous, Starting on 01/31/24 at 1300, Pre-Procedure (GI) 1310 (New Bag - Provider: Jaydon Bailon, RN)1400 (Stopped - Provider: Marilyn Bailon, ALIREZA) PRN Medication Order 01/30/2024 01/31/2024 02/01/2024 Carrier Fluids for Secondary Infusion - 0.9% Sodium Chloride 30 mL, intravenous, As needed, For priming tubing and/or flushing, Starting on 01/30/24 at 0512, 0-250 ml/hr to flush line after IV infusions when no maintenance IV ordered. Infuse 30mL at the same rate as the secondary infusion. Run as primary IV, not intended for KVO. 1310 ([facility] Hold - Provider: Automatic Transfer Provider - Reason: Patient not available)1428 ([facility] Unhold - Provider: Automatic Transfer Provider) dextrose [...] episode of hypoglycemia., Indications: hypoglycemic disorder 1310 ([facility] Hold - Provider: Automatic Transfer Provider - Reason: Patient not available)1428 ([facility] Unhold - Provider: Automatic Transfer Provider) dextrose [...] Call MD for each episode of hypoglycemia. RUSSI[employer] LANGUAGE IN[employer]CTOR STATES GLUTOSE-15 CONTAINS GLUCOSE 40% W/W (50% W/V), Indications: hypoglycemic disorder 1310 ([facility] Hold - Provider: Automatic Transfer Provider - Reason: Patient not available)1428 ([facility] Unhold - Provider: Automatic Transfer Provider) glucagon injection 1 mg 1 mg, intramuscular, Every 30 min PRN, low blood sugar, blood glucose less than 70 mg/dL AND no IV access AND unable to take PO glucose/juice., Starting on 01/30/24 at 0250, After Glucagon is administered, position [...] mL SWFI. Use immediately following reconstitution. 1310 ([facility] Hold - Provider: Automatic Transfer Provider - Reason: Patient not available)1428 ([facility] Unhold - Provider: Automatic Transfer Provider) HYDROcodone-acetaminophen (NORCO) 5-325 mg per tablet 1 tablet 1 tablet, oral, Every 4 hours PRN, 3rd line for pain, Starting on 01/31/24 at 1452, Indications: Pain 1646 (Given - Provider: Claire Spencer RN) ondansetron (ZOFRAN) injection 4 mg(Linked Group 2) 4 mg, intravenous, Administer over 2 Minutes, Every 6 hours PRN, nausea, vomiting, if not tolerating PO, Starting on 01/30/24 at 0512, Indications: Nausea and Vomiting 1310 ([facility] Hold - Provider: Automatic Transfer Provider - Reason: Patient not available)1428 ([facility] Unhold - Provider: Automatic Transfer Provider) ondansetron ODT (ZOFRAN-ODT) disintegrating tablet 4 mg(Linked Group 2) 4 mg, oral, Every 6 hours PRN, nausea, vomiting, Starting on 01/30/24 at 0512, Indications: Nausea and Vomiting 1310 ([facility] Hold - Provider: Automatic Transfer Provider - Reason: Patient not available)1428 ([facility] Unhold - Provider: Automatic Transfer Provider) polyethylene glycol (MIRALAX) packet 17 g 17 g, oral, Daily PRN, constipation, Starting on 01/30/24 at 0512, Indications: constipation 1310 ([facility] Hold - Provider: Automatic Transfer Provider - Reason: Patient not available)1428 ([facility] Unhold - Provider: Automatic Transfer Provider) ramelteon (ROZEREM) tablet 8 mg 8 mg, oral, Nightly PRN, sleep, Starting on 01/30/24 at 0512, Indications: Sleep-Onset Insomnia 1310 ([facility] Hold - Provider: Automatic Transfer Provider - Reason: Patient not available)1428 ([facility] Unhold - Provider: Automatic Transfer Provider) simethicone (MYLICON) 66.7 mg/mL oral drops (CANCELED) As needed, Starting on 01/31/24 at 1326, Intra-Op 1326 (Given - Provider: Jimbo Duvall MD) sodium chloride 0.9% flush 0.5-20 mL 0.5-20 mL, intra-catheter, As needed, line care, Starting on 01/30/24 at 0512, Flush volume based on line type and size. Flush before and after each use. 1310 ([facility] Hold - Provider: Automatic Transfer Provider - Reason: Patient not available)1428 ([facility] Unhold - Provider: Automatic Transfer Provider) traMADoL (ULTRAM) tablet 25 mg 25 mg, oral, Every 8 hours PRN, 2nd line for pain, Starting on 01/30/24 at 0512 1030 (Given - Provider: Claire Spencer RN)1310 ([facility] Hold - Provider: Automatic Transfer Provider - Reason: Patient not available)1428 ([facility] Unhold - Provider: Automatic Transfer Provider) Linked [...] Call MD for each episode of hypoglycemia. [employer] LANG[employer]AGE [employer] STATES GLUTOSE-15 CONTAINS GLUCOSE 40% W/W (50% [...] Last Ordered Date First Ordered Date albumin 5 % bottle 12.5 g 1 01/31/2024 diphenhydrAMINE (BENADRYL) 5 0 mg/mL injection 12.5 mg 1 01/31/2024 hydrALAZINE (APRESOLINE) injection 5 mg 1 0 01/31/2024 hydrALAZINE (APRESOLINE) tablet 25 mg 1 04/2024 hydrALAZINE (APRESOLINE) tablet 50 mg 3 04/202401/29/2024 HYDROcodone-acetaminophen (N ORCO) 5-325 mg per tablet 1 tablet 1 01/31/2024 labetaloL (NORMODYNE,TRANDAT E) injection 5 mg 1 01/31/2024 meperidine (DEMEROL) preserv ative free injection 12.5 mg 1 01/31/2024 naloxone (NARCAN) 0.4 mg/mL injection 0.04-0.4 mg 1 01/31/2024 ondansetron (ZOFRAN) injection 4 mg 2 01/3001/30/[address] (PROTONIX) e xtended release tablet 40 mg 2 01/31/2024 01/29/2024 prochlorperazine (COMPAZINE) injection 5 mg 1 01/31/2024 sodium chloride 0.9% flush 0.5-20 mL 4 01/2001/30/2024 sodium chloride 0.9% infusion 1 01/31/2024 sucralfate (CARAFATE) 100 mg /mL oral suspension 1 g 1 01/31/2024 acetaminophen (TYLENOL) tablet 650 mg 1 03/2024 atorvastatin (LIPITOR) tablet 40 mg 1 01/29 benztropine (COGENTIN) tablet 2 mg 1 2023 Carrier Fluids for Secondary Infusion - 0.9% Sodium Chloride 01/30/2024 carvediloL (COREG) tablet 3.125 mg 1 2023 darbepoetin isaiah (ARANESP) i njection 100 mcg 3 01/30/2024 dextrose (D10W) 10% bolus 250 mL 01/30/20 dextrose (GLUTOSE) 40 % gel 15 g 01/30/20 24 ferrous sulfate tablet 325 mg 01/30/2024 gabapentin (NEURONTIN) capsule 100 mg 2 03/2024 glucagon injection 1 mg 1 01/30/2024 hydrALAZINE (APRESOLINE) injection 10 mg 1 01/30/2024 insulin glargine (LANTUS, SE MGLEE) 100 unit/mL injection 10 Units 1 01/30/2024 insulin lispro (HumaLOG, ADM ELOG) 100 unit/mL injection 0-4 Units 1 01/30/2024 insulin lispro (HumaLOG, ADM ELOG) 100 unit/mL injection 0-5 Units 1 01/30/2024 Lactated Ringer's (LR) bolus 500 mL 1 01/29 methocarbamoL (ROBAXIN) tablet 750 mg 1 03/2024 NIFEdipine (PROCARDIA XL/ADA LAT CC) extended release tablet 60 mg 1 01/30/2024 ondansetron ODT (ZOFRAN-ODT) disintegrating tablet 4 mg 1 01/30/2024 oxyCODONE (ROXICODONE) tablet 5 mg 1 2023 pantoprazole (PROTONIX) 40 m g in sodium chloride 0.9% 10 mL IV Syringe 2 01/30/2024 polyethylene glycol (MIRALAX) packet 17 g 1 01/30/2024 ramelteon (ROZEREM) tablet 8 mg 1 4 risperiDONE (RisperDAL) tablet 2 mg 1 01/29 sodium chloride 0.9% bolus 200 mL 1 024 traMADoL (ULTRAM) tablet 25 mg 2 01/30/2024 01/29/2024 traMADoL (ULTRAM) tablet 50 mg 1 01/30/2024 cloNIDine (CATAPRES) tablet 0.2 mg 1 2023 ioversoL (OPTIRAY 350) syringe 100 mL 1 02/2024 sodium chloride 0.9% IVPB 0-250 mL 1 2023 Lab Orders Without Results Count Last Ordered [...] Time 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 12/29/2023 06/26/2024 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 [address] [place] [address] Consulting Physician Infectious Diseases 12/05/22 Markie Ryan MD [address] [facility] [address] [place] [address] Consulting Physician Nephrology 12/05/22 Dulce Vega, ALIREZA [address] [place] [address] [address] [place] [address] Vice Chancellor 10/07/23 05/03/24 [place] [address] [place] [address] [facility] [address] [place] [address] Consulting Physician Nephrology 10/22/23 documented as of this encounter
--- OUTSIDE RECORDS SUMMARY | 2024-07-04 04:03 | XMS_ITS | Encounter Summary ---
Author Organization [facility] Healthcare Address [address] [place] [address] Care Team Providers Care Director Regulatory Agency Name Role Phone Cherelle Corcoran MD Primary Care Pro vider Mark Queen MD Unavailable [phone] Rudolph Welch MD Unavailable Markie Ryan MD Unavailable [phone] Dulce Vega RN Unavailable Jimbo Strauss MD Unavailable [phone] Reason for Visit * Auth/Cert (Routine) Specialty Diagnoses / Procedures Referred By Contac t Referred To Contact Referral ID Status Reason Start Date Expiration Date Visits Re quested Visits Authorized [id number] 1 1 Encounter Details Date Type Department Care Team (Late st Contact Info) Description 01/15/2024 12:30 PM CDT Home Care Visit [facility] [address] [place] [address] Nicolas Burgess, RN SN HOME VISIT Social History Tobacco Use Types Packs/Day Years [...] materials from doctor or pharmacy Never 12/28/2023 [facility] Utilities Answer Date Recorded In the past 12 months has e [employer], [employer], oil, or water [employer] threatened to shut off services in your [...] often do you attend chur ch or latter-day services? More than 4 times per year 12/21/2023 Do you belong to any clubs o r organizations such as shinto groups, unions, fraternal or athletic groups, or [...] living in a fci (including now)? No 12/21/2023 Personal Safety Answer Date Recorded Have you ever been in or are you currently in a harmful physical or emotional relationship or is someone making you feel afraid or unsafe? 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 AM TIRE MOLD ENGRAVER Gender Identity Female 02/08/2020 6:39 PM CDT Sexual Orientation Not on file documented as of this encounter Last Filed Vital Signs Vital Sign Reading Time Taken Comments Blood Pressure 122/60 01/15/2024 12:31 PM CDT Pulse 80 01/15/2024 12:31 PM CDT Temperature 36.7 ??C (98.1 ??F) 01/15/2024 12:31 PM C DT Respiratory Rate 18 01/15/2024 12:31 PM CDT Oxygen Saturation 97% 01/15/2024 12:31 PM CDT Inhaled Oxygen Concentration - - Weight - - Height - - Body Mass Index - - documented in this encounter Miscellaneous Notes * Home Health Visit Narrative - Nicolas Burgess RN - 01/15/2024 12:30 PM CDT Assessed patient. Educated on s/s of infection, fall prevention, and who to call in the event of decline in health or emergency. documented in this encounter Plan of Treatment Upcoming Encounters Date Type Department Care Team (Latest Contact Info) Description 07/13/2024 9:00 AM TIRE MOLD ENGRAVER Hospital Encounter [facility] Lab [address] [place] [address] Jaya Grier MD [address] [place] [address] [address] [place] [address] 07/13/2024 9:00 AM TIRE MOLD ENGRAVER - 07/13/2024 9:30 AM TIRE MOLD ENGRAVER Surgery [facility] GI Lab [address] [place] [address] Jaya Grier MD [address] [place] [address] [address] [place] [address] ESOPHAGOGASTRODUODENOSCOPY Scheduled Procedures Name Priority Associated Diagnoses Date/Ti in ESOPHAGOGASTRODUODENOSCOPY Anemia, unspecified type Gastritis without bleeding, unspecified chronicity, unspecified gastritis type 07/13/2024 9:00 AM TIRE MOLD ENGRAVER COLONOSCOPY Iron deficiency anemia due to chronic blood loss documented as of this encounter Visit Diagnoses Not on filedocumented in this encounter 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 06/26/2024 3:05 AM TIRE MOLD ENGRAVER documented as of this encounter Home Health Visit - Care Plan Visit Details Visit Type -SN Home Visit Discipline -Halfway Problems Problem Description Start Date Status Goals Interve ntions Homebound Status Disciplines: Skilled Disciplines Patient's homebound status 12/28/2023 Active 1 goal linked to scheduled/docume nted intervention 1 goal intervention scheduled/documen bruno in this visit Medications Disciplines: Halfway Management of home medications 12/28/2023 Active 1 goal linked to scheduled/docume nted intervention 2 goal interventions scheduled/documen bruno in this visit Monitor patient's vital signs every home health visit Disciplines: SN, PT, OT, COMMERCIAL DRONE PILOT, FISH TRAPPER, Skilled Disciplines Monitor patient's vital signs every home health visit. 12/28/2023 Active 1 goal linked to scheduled/docume nted intervention 1 goal intervention scheduled/documen bruno in this visit Infection Prevention Disciplines: Skilled Disciplines Infection Prevention 12/28/2023 Active 1 goal linked to scheduled/docume nted intervention 1 goal intervention scheduled/documen bruno in this visit Safety concerns Disciplines: Skilled Disciplines Alteration in safety 12/28/2023 Active 1 goal linked to scheduled/docume nted intervention 2 goal interventions scheduled/documen bruno in this visit Remote Monitoring Disciplines: Skilled Disciplines HOMMED Needs 12/28/2023 Active 1 goal linked to scheduled/docume nted intervention 1 goal intervention scheduled/documen bruno in this visit Pain Disciplines: Core Disciplines Alteration in comfort 12/28/2023 Active 1 goal linked to scheduled/docume nted intervention 1 goal intervention scheduled/documen bruno in this visit Learning/Jagdeep g Needs - Diabetes Disciplines: Halfway Learning and teaching needs associated with diagnosis 12/28/2023 Active 1 goal linked to scheduled/docume nted intervention 3 goal interventions scheduled/documen bruno in this visit Learning/Jagdeep montaño Needs - Hypertension Disciplines: Halfway Lack of knowledge regarding medical regimen related to controlling/manag ing hypertension 12/28/2023 Active 1 goal linked to scheduled/docume nted intervention 3 goal interventions scheduled/documen bruno in this visit Goals Goal Associated Problem Outcome Goal Met? Visit Notes Patient receives care at the most appropriate care setting Description: Patient receives care at the most appropriate care setting. Homebound Status No Understand and follow medication therapy Description: Patient/Caregiver will verbalize understanding of purpose, side effects, and medication regimen in 4 weeks as evidenced by taking all medications as prescribed and no medication errors. Medications No Measure vital signs during every home health visit during episode of care Description: Home milled lumber grader to measure vital signs during every home [...] of pain and symptom control. Pain No Demonstrate adequate knowledge of Diabetes Description: Patient/caregiver will demonstrate adequate knowledge of diabetes as evidenced by the ability to perform blood sugar monitoring, care of feet, skin and eyes and signs/symptoms of altered glycemic states and their treatment by the end of the episode of care. Learning/Teaching Needs - Diabetes No Demonstrate adequate knowledge of care related to Hypertension Description: Patient/Caregiver will demonstrate adequate knowledge as evidenced by the ability to describe disease process and effects, signs/symptoms, risk factors and lifestyle modification requirements by the end of the episode of care. Learning/Teaching Needs - Hypertension No Interventions Intervention Associated Problem/Goal Status Variance [...] and another person to leave the home. Instruct on Medication Management Description: Assess patient/caregiver ability to demonstrate management of medications, steps to obtain new/refills of medications and identification of new or changed medications. Assess patient/caregiver ability to verbalize accurate dose/route/frequency/angeline son for medication, how to evaluate effectiveness of medication, ongoing lab work needed to ensure therapeutic dosing, drug/food interactions, side effects/adverse reactions, contraindications for medications and known drug allergies. Evaluate the effectiveness of current treatment regimen and notify the appropriate healthcare provider for the need for changes in the plan of care. Problem:Medications Goal:Understand and follow medication therapy Completed Patient's daughter/caregiver stated patient has been diabetic for years. They stated good understanding of insulin regimen. Instruct on High Risk Medications Description: Instruct patient/caregiver on oral or injectable high-risk medications, including: anticonvulsant, antiretroviral, anticoagulant, antibiotics, chemotherapeutic, hypoglycemic including insulin, immunosuppressant, antipsychotic, and opioids. Problem:Medications Goal:Understand and follow medication therapy Completed Patient's daughter/caregiver stated patient has been diabetic for years. They stated good understanding of insulin regimen. Monitor Vital Signs Description: Monitor blood pressure, [...] Description: Instruct patient/caregiver in Sick Day Guidelines. Problem:Learning/Te aching Needs - Diabetes Goal:Demonstrate adequate knowledge of Diabetes Completed Instruct on signs and symptoms of hyperglycemia Description: Instruct patient/caregiver in signs/symptoms of hyperglycemia. Problem:Learning/Te aching Needs - Diabetes Goal:Demonstrate adequate knowledge of Diabetes Completed Blood glucose monitoring Description: Patient/caregiver to perform blood sugar testing and record in log. Frequency of testing ACHS Problem:Learning/Te aching Needs - Diabetes Goal:Demonstrate adequate knowledge of Diabetes Completed Instruct on blood pressure daily log Description: Teach patient/family how to use cuff. SN to develop blood pressure diary for patient to record daily readings. Instruct patient to monitor and record blood pressure on daily log. Problem:Learning/Te aching Needs - Hypertension Goal:Demonstrate adequate knowledge of care related to Hypertension Completed Instruct on stress reduction Description: Instruct patient/caregiver in how stress impacts health and in methods to reduce stress. Problem:Learning/Te aching Needs - Hypertension Goal:Demonstrate adequate knowledge of care related to Hypertension Completed Instruct on the risk factors of hypertension Description: Instruct patient/caregiver in disease process and effects of nursing home uncontrolled hypertension. Problem:Learning/Te aching Needs - Hypertension Goal:Demonstrate adequate knowledge of care related to Hypertension Completed documented in this encounter Care Teams Director Regulatory Agency Relationship Specialty Start Date End Date Cherelle Corcoran MD PCP - General Family Medicine 08/30/19 Mark Queen MD Consulting Physician Infectious Diseases 01/10/20 Rudolph Welch MD [address] [facility] [address] [place] [address] Consulting Physician Infectious Diseases 12/05/22 Markie Ryan MD [address] [facility] [address] [place] [address] Consulting Physician Nephrology 12/05/22 Dulce Vega, RN [address] [place] [address] [address] [place] [address] Supervisor [employer] 10/07/23 05/03/24 [place] [address] [facility] [address] [place] [address] Consulting Physician Nephrology 10/22/23 documented as of this encounter
--- OUTSIDE RECORDS SUMMARY | 2024-07-04 04:04 | XMS_ITS | Encounter Summary ---
Author Organization [facility] Healthcare Address [address] [place] [address] Care Team Providers Care Medical Chief Technician Name Role Phone Cherelle Corcoran MD Primary Care Pro vider Mark Queen MD Unavailable [phone] Rudolph Welch MD Unavailable [phone] Markie Ryan MD Unavailable [phone] Dulce Vega RN Unavailable Jimbo Strauss MD Unavailable [phone] Encounter Details Date Type Department Care Team (Late st Contact Info) Description 12/28/2023 Plan of Care Documentation [facility] Health [address] [place] [address] Social History Tobacco Use Types Packs/Day Years [...] materials from doctor or pharmacy Never 12/28/2023 [facility] Utilities Answer Date Recorded In the [...] often do you attend chur ch or restoration services? More than 4 times per year [...] any time in the past 12 m [facility], were you homeless or living in a usp (including now)? No 12/21/2023 Personal Safety Answer Date Recorded Have you ever been in or are you currently in a harmful physical or emotional relationship or is someone making you feel afraid or unsafe? Denies 12/03/2023 Comments No Sex and Gender Information Value Date Recorded Sex Assigned at Not on file Legal Sex Female 9:03 AM BILLIARD PARLOR MANAGER Gender Identity Female 02/08/2020 6:39 PM CDT Sexual Orientation Not on file documented as of this encounter Miscellaneous Notes * Home Health Plan of Care Certification Statement - Leslie Schmidt OT - 01/06/2024 8:09 AM CDT I certify that the above stated patient is homebound and has a need for intermittent long term, physical therapy and/or speech or occupational therapy services for their current diagnosis(es) as outlined in the initial plan of care. The patient is under my care, and I have authorized serviceson this plan of care and will periodically review the plan. The patient had a [id number] encounter with Chavez Isbell MD on 12/25/2023 and the encounter was related to the primary reason for home health care. documented in this encounter Plan of Treatment Upcoming Encounters Date Type Department Care Team (Latest Contact Info) Description 07/13/2024 9:00 AM BILLIARD PARLOR MANAGER Hospital Encounter [facility] GI Lab [address] [place] [address] Jaya Grier MD [address] [facility] [address] [place] [address] 07/13/2024 9:00 AM BILLIARD PARLOR MANAGER - 07/13/2024 9:30 AM BILLIARD PARLOR MANAGER Surgery [facility] Lab [address] [place] [address] Jaya Grier MD [address] [facility] [address] [place] [address] ESOPHAGOGASTRODUODENOSCOPY Scheduled Procedures Name Priority Associated Diagnoses Date/Ti me ESOPHAGOGASTRODUODENOSCOPY Anemia, unspecified type Gastritis without bleeding, unspecified chronicity, unspecified gastritis type 07/13/2024 9:00 AM BILLIARD PARLOR MANAGER COLONOSCOPY Iron deficiency anemia due to chronic blood loss documented as of this encounter Visit Diagnoses Not on filedocumented in this encounter Care Teams Medical Chief Technician Relationship Specialty Start Date End Date Cherelle Corcoran MD PCP - General Family Medicine 08/30/19 Mark Queen MD Consulting Physician Infectious Diseases 01/10/20 Rudolph Welch MD [address] [facility] [address] [place] [address] Consulting Physician Infectious Diseases 12/05/22 Markie Ryan MD [address] [facility] [address] [place] [address] Consulting Physician Nephrology 12/05/22 Dulce Vega, ALIREZA [address] [place] [address] [address] [place] [address] New Car Make Ready Mechanic 10/07/23 05/03/24 [place] [address] [address] [place] [address] Consulting Physician Nephrology 10/22/23 documented as of this encounter
--- OUTSIDE RECORDS SUMMARY | 2024-07-04 04:04 | XMS_ITS | Encounter Summary ---
Author Organization [facility] Healthcare Address [address] [place] [address] Care Team Providers Care Dolphin Researcher Name Role Phone Cherelle Corcoran MD Primary Care Pro vider Mark Queen MD Unavailable [phone] Rudolph Welch MD Unavailable Markie Ryan MD Unavailable Dulce Vega RN Unavailable Jimbo Strauss MD Unavailable [phone] Jaya Grier MD Unavailable Reason for Visit * Reason Onset Date Comments ARYA Questions 01/06/2024 Encounter Details Date Type Department Care Team ([facility] st Contact Info) Description 01/06/2024 Telephone [facility] Medical Group Primary Care at [address] [place] [address] Cherelle Corcoran MD [facility] [address] [place] [address] ARYA Questions Social History Tobacco Use Types Packs/Day [...] doctor or pharmacy Often 01/20/2024 [facility] Utilities Answer Date Recorded In the past [...] any time in the past 12 m [facility], were you homeless or living [...] on file Legal Sex Female 9:03 AM TECHNICAL REPORT WRITER Gender Identity Female 02/08/2020 6:39 PM CDT Sexual Orientation Not on file documented as of this encounter Miscellaneous Notes * Telephone Encounter - Cherelle Corcoran MD - 01/07/2024 6:30 AM CDT Please complete arya questions now that she is discharged. thanks * Telephone Encounter - Brook Sinclair. - 01/06/2024 12:05 PM CDT ARYA Questions (Message from [facility]): Has patient been discharged at time of call? No Will patient be transferred to another inpatient facility (e.g. [facility], inpatient rehab, etc.)? No The patient was not discharged at the time of the call. Patient will need to be contacted after discharge to complete remaining questions. Date Admitted: 01/05/24 Tentative Discharge Date: 01/06/24 Facility Admitted To: [facility] Date of ARYA Appointment: 01/11/24 Additional Comments: None Does message need to be routed? Yes-Action Needed documented in this encounter Plan of Treatment Upcoming Encounters Date Type Department Care Team (Latest Contact Info) Description 07/13/2024 9:00 AM TECHNICAL REPORT WRITER Hospital Encounter [facility] GI Lab [address] [place] [address] Jaya Grier MD [address] [place] [address] [address] [place] [address] 07/13/2024 9:00 AM TECHNICAL REPORT WRITER - 07/13/2024 9:30 AM TECHNICAL REPORT WRITER Surgery [facility] GI Lab [address] [place] [address] Jaya Grier MD [facility] [address] [place] [address] ESOPHAGOGASTRODUODENOSCOPY Scheduled Procedures Name Priority Associated Diagnoses Date/Ti wi ESOPHAGOGASTRODUODENOSCOPY Anemia, unspecified type Gastritis without bleeding, unspecified chronicity, unspecified gastritis type 07/13/2024 9:00 AM TECHNICAL REPORT WRITER COLONOSCOPY Iron deficiency anemia due to chronic blood loss documented as of this encounter Visit Diagnoses Not on filedocumented in this encounter 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 06/26/2024 3:05 AM TECHNICAL REPORT WRITER documented as of this encounter Care Teams Dolphin Researcher Relationship Specialty Start Date End Date Cherelle Corcoran MD PCP - General Family Medicine 08/30/19 Mark Queen MD Consulting Physician Infectious Diseases 01/10/20 Rudolph Welch MD [address] [facility] [address] [place] [address] Consulting Physician Infectious Diseases 12/05/22 Markei Ryan MD [address] [facility] [address] [place] [address] Consulting Physician Nephrology 12/05/22 Dulce Vega, RN [address] [place] [address] [address] [place] [address] Customer Greeter 10/07/23 05/03/24 [place] [address] [facility] [address] [place] [address] Consulting Physician Nephrology 10/22/23 Jaya Grier MD [address] [facility] [address] [place] [address] Consulting Physician Gastroenterology 02/01/24 documented as of this encounter
--- OUTSIDE RECORDS SUMMARY | 2024-07-04 04:04 | XMS_ITS | Encounter Summary ---
Author Organization [facility] Healthcare Address [address] [place] [address] Care Team Providers Care Chlorine Cells Operator Name Role Phone Cherelle Corcoran MD Primary Care Pro vider Mark Queen MD Unavailable [phone] Rudolph Welch MD Unavailable [phone] Markie Ryan MD Unavailable [phone] Dulce Vega RN Unavailable Jimbo Strauss MD Unavailable [phone] Reason for Visit * Auth/Cert (Routine) Specialty Diagnoses / Procedures Referred By Contac t Referred To Contact Referral ID Status Reason Start Date Expiration Date Visits Re quested Visits Authorized [id number] 1 1 Encounter Details Date Type Department Care Team (Latest Contact Info) Description 01/03/2024 10:30 AM CDT Home Care Visit [facility] [address] [place] [address] Ming Nicole, PT PT INITIAL EVALUATION Social History Tobacco Use Types Packs/Day Years [...] materials from doctor or pharmacy Never 12/28/2023 [facility] Utilities Answer Date Recorded In the past 12 months has e [employer], [employer], oil, or water [employer] threatened to shut off services in your [...] any time in the past 12 m [facility], were you homeless or living in a senior living (including now)? No 12/21/2023 Personal Safety Answer Date Recorded Have you ever been in or are you currently in a harmful physical or emotional relationship or is someone making you feel afraid or unsafe? Denies 12/03/2023 Comments No Sex and Gender Information Value Date Recorded Sex Assigned at Not on file Legal Sex Female 9:03 AM SAND WORKER Gender Identity Female 02/08/2020 6:39 PM CDT Sexual Orientation Not on file documented as of this encounter Last Filed Vital Signs Vital Sign Reading Time Taken Comments Blood Pressure 123/78 01/03/2024 11:58 AM CDT Pulse 78 01/03/2024 11:58 AM CDT Temperature 36.5 ??C (97.7 ??F) 01/03/2024 11:58 AM C DT Respiratory Rate 19 01/03/2024 11:58 AM CDT Oxygen Saturation 98% 01/03/2024 11:58 AM CDT Inhaled Oxygen Concentration - - Weight - - Height - - Body Mass Index - - documented in this encounter Miscellaneous Notes * Home Health Plan for Next Visit - Ming Nicole PT - 01/03/2024 11:41 AM CDT Reason for today's visit HHPT Discuss plan of care for continued HHPT with pt and cg Discharge planning 1w4 Plan for next visit progress as tolerated. I attempted to give them a HEP for the L shoulder, but she was in too much pain to really do anything , she can only keep the L UE IR, adducted and elbow at 90, this position offers the most pain relief for her but shes still in so much pain there she is crying and yelling out. she was able to do shoulder elevation, shoulder girdle retraction, shoulder extension, shoulder IR/ER, but that movementwas quite painful so i just had her go to neutral when trying to externally rotate. she really may have a rotator cuff tear, the only thing i found in the notes was an Xray which reported reduced subacromial space, but that wouldnt really explain this level of pain. i suspect there may be a tear, but i coudlnt do any special testing for rotator cuff tears due to her pain. she has not gotten an MRI as her daughter reports they didnt want to do one. i explained this may be due to her age and her not being a valid candidate for shoulder surgery due to her multiple co morbid conditions. will have OT evaluate the shoulder too and see what we can do for her. documented in this encounter Plan of Treatment Upcoming Encounters Date Type Department Care Team (Latest Contact Info) Description 07/13/2024 9:00 AM SAND WORKER Hospital Encounter [facility] [address] [place] [address] Jaya Grier MD [address] [facility] [address] [address] 07/13/2024 9:00 AM SAND WORKER - 07/13/2024 9:30 AM SAND WORKER Surgery [facility] [address] [place] [address] Jaya Grier MD [address] [facility] [place] [address] ESOPHAGOGASTRODUODENOSCOPY Scheduled Procedures Name Priority Associated Diagnoses Date/Ti me ESOPHAGOGASTRODUODENOSCOPY Anemia, unspecified type Gastritis without bleeding, unspecified chronicity, unspecified gastritis type 07/13/2024 9:00 AM SAND WORKER COLONOSCOPY Iron deficiency anemia due to chronic blood loss documented as of this encounter Visit Diagnoses Not on filedocumented in this encounter 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 06/26/2024 3:05 AM SAND WORKER documented as of this encounter Home Health Visit - Care Plan Visit Details Visit Type -PT Initial Evalu ation Discipline -Physical Therapy Problems Problem Description Start Date Status Goals Interve ntions Homebound Status Disciplines: Skilled Disciplines Patient's homebound status 12/28/2023 Active 1 goal linked to scheduled/documen bruno intervention 1 goal intervention scheduled/documen bruno in this visit Monitor patient's vital signs every home health visit Disciplines: SN, PT, OT, TIRE BUFFER, SODIUM CHLORITE OPERATOR, Skilled Disciplines Monitor patient's vital signs every home health visit. 12/28/2023 Active 1 goal linked to scheduled/documen bruno intervention 1 goal intervention scheduled/documen bruno in this visit Infection Prevention Disciplines: Skilled Disciplines Infection Prevention 12/28/2023 Active 1 goal linked to scheduled/documen bruno intervention 1 goal intervention scheduled/documen bruno in this visit Safety concerns Disciplines: Skilled Disciplines Alteration in safety 12/28/2023 Active 1 goal linked to scheduled/documen bruno intervention 2 goal interventions scheduled/documen bruno in this visit Remote Monitoring Disciplines: Skilled Disciplines HOMMED Needs 12/28/2023 Active 1 goal linked to scheduled/documen bruno intervention 1 goal intervention scheduled/documen bruno in this visit Pain Disciplines: Core Disciplines Alteration in comfort 12/28/2023 Active 1 goal linked to scheduled/documen bruno intervention 1 goal intervention scheduled/documen bruno in this visit Goals Goal Associated Problem Outcome Goal Met? Visit Notes Patient receives care at the most appropriate care setting Description: Patient receives care at the most appropriate care setting. Homebound Status No Measure vital signs during every home health visit during episode of care Description: Home swing tender to measure vital signs during every home [...] Scheduled documented in this encounter Care Teams Chlorine Cells Operator Relationship Specialty Start Date End Date Cherelle Corcoran MD PCP - General Family Medicine 08/30/19 Mark Queen MD Consulting Physician Infectious Diseases 01/10/20 Rudolph Welch MD [address] [facility] [address] [place] [address] Consulting Physician Infectious Diseases 12/05/22 Markie Ryan MD [address] [facility] [address] [place] [address] Consulting Physician Nephrology 12/05/22 Dulce Vega RN [address] [place] [address] [address] [place] [address] Clinic Licensed Practical Nurse 10/07/23 05/03/24 [place] [address] [address] [facility] [address] [place] [address] Consulting Physician Nephrology 10/22/23 documented as of this encounter
--- OUTSIDE RECORDS SUMMARY | 2024-07-04 04:04 | XMS_ITS | Encounter Summary ---
Author Organization [facility] Healthcare Address [address] [place] [address] Care Team Providers Care Clothing Presser Name Role Phone Cherelle Corcoran MD Primary Care Pro vider Mark Queen MD Unavailable [phone] Rudolph Welch MD Unavailable Markie Ryan MD Unavailable Dulce Vega RN Unavailable [phone] Jimbo Strauss MD Unavailable [phone] Encounter Details Date Type Department Care Team (Late st Contact Info) Description 01/11/2024 Telephone [facility] Medical Group Primary Care at [address] [phone] Cherelle Corcoran MD [address] [place] [id number] Social History Tobacco Use Types Packs/Day [...] materials from doctor or pharmacy Never 12/28/2023 [facility] Utilities Answer Date Recorded In the past 12 months has e [employer], gas, oil, or water [employer] threatened to shut off services in [...] on file Legal Sex Female 9:03 AM QUALITY ASSURANCE PROJECT MANAGER Gender Identity Female 02/08/2020 6:39 PM CDT Sexual Orientation Not on file documented as of this encounter Miscellaneous Notes * Telephone Encounter - Valeria Jackson - 01/11/2024 9:11 AM CDT Date Admitted: December 29, 2023 Date Discharged: December 31, 2023 Facility Admitted To: [facility] Reason for Stay? UTI If prescribed new medications, do you have any questions or concerns? Two new BP medications Do you have enough medication to get you to your follow-up appointment? yes Since being released do you feel better, the same, or worse?same Date of JOY Appointment: 01/11/2024 Do you have transportation to the appointment? Yes, daughter Additional Comments: MRI scheduled Aug Does message need to be routed? yes documented in this encounter Plan of Treatment Upcoming Encounters Date Type Department Care Team (Latest Contact Info) Description 07/13/2024 9:00 AM QUALITY ASSURANCE PROJECT MANAGER Hospital Encounter [facility] [address] [place] [address] Jaya Grier MD [address] [place] [address] [address] [place] [address] 07/13/2024 9:00 AM QUALITY ASSURANCE PROJECT MANAGER - 07/13/2024 9:30 AM QUALITY ASSURANCE PROJECT MANAGER Surgery [facility] [address] [place] [address] Jaya Grier MD [address] [place] [address] [address] [place] [address] ESOPHAGOGASTRODUODENOSCOPY Scheduled Procedures Name Priority Associated Diagnoses Date/Ti me ESOPHAGOGASTRODUODENOSCOPY Anemia, unspecified type Gastritis without bleeding, unspecified chronicity, unspecified gastritis type 07/13/2024 9:00 AM QUALITY ASSURANCE PROJECT MANAGER COLONOSCOPY Iron deficiency anemia due to chronic blood loss documented as of this encounter Visit Diagnoses Not on filedocumented in this encounter 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 06/26/2024 3:05 AM QUALITY ASSURANCE PROJECT MANAGER documented as of this encounter Care Teams Clothing Presser Relationship Specialty Start Date End Date Cherelle Corcoran MD PCP - General Family Medicine 08/30/19 Mark Queen MD Consulting Physician Infectious Diseases 01/10/20 Rudolph Welch MD [address] [facility] [address] [place] [address] Consulting Physician Infectious Diseases 12/05/22 Markie Ryan MD [address] [facility] [address] [place] [address] Consulting Physician Nephrology 12/05/22 Dulce Vega, ALIREZA [address] [place] [address] [address] [place] [address] Health Spa Manager 10/07/23 05/03/24 [place] [address] [facility] [address] [place] [address] Consulting Physician Nephrology 10/22/23 documented as of this encounter
--- OUTSIDE RECORDS SUMMARY | 2024-07-04 04:04 | XMS_ITS | Encounter Summary ---
Author Organization [facility] Facility Care Team Providers Care Supervisor Park Workers Name Role Phone Cherelle Corcoran MD Primary Care Pro vider Mark Queen MD Unavailable [phone] Rudolph Welch MD Unavailable [phone] Markie Ryan MD Unavailable [phone] Dulce Vega RN Unavailable Jimbo Strauss MD Unavailable [phone] Encounter Details Date Type Department Care Team (Latest Contact Info) Description 12/27/2023 Travel Social History Tobacco Use Types Packs/Day [...] materials from doctor or pharmacy Never 12/28/2023 [place] Utilities Answer Date Recorded In the [...] on file Legal Sex Female 9:03 AM PATENT CHEMIST Gender Identity Female 02/08/2020 6:39 PM CDT Sexual Orientation Not on file documented as of this encounter Plan of Treatment Upcoming Encounters Date Type Department Care Team (Latest Contact Info) Description 07/13/2024 9:00 AM PATENT CHEMIST Hospital Encounter [facility] [address] [place] [address] Jaya Grier MD [address] [facility] [address] [place] [address] 07/13/2024 9:00 AM PATENT CHEMIST - 07/13/2024 9:30 AM PATENT CHEMIST Surgery [facility] [address] [place] [address] Jaya Grier MD [address] [facility] [address] [place] [address] ESOPHAGOGASTRODUODENOSCOPY Scheduled Procedures Name Priority Associated Diagnoses Date/Ti me ESOPHAGOGASTRODUODENOSCOPY Anemia, unspecified type Gastritis without bleeding, unspecified chronicity, unspecified gastritis type 07/13/2024 9:00 AM PATENT CHEMIST COLONOSCOPY Iron deficiency anemia due to chronic blood loss documented as of this encounter Visit Diagnoses Not on filedocumented in this encounter Care Teams Supervisor Park Workers Relationship Specialty Start Date End Date Cherelle Corcoran MD PCP - General Family Medicine 08/30/19 Mark Queen MD Consulting Physician Infectious Diseases 01/10/20 Rudolph Welch MD [address] [facility] [address] [place] [address] Consulting Physician Infectious Diseases 12/05/22 Markie Ryan MD [address] [facility] [address] [place] [address] Consulting Physician Nephrology 12/05/22 Dulce Vega, ALIREZA [address] [place] [address] [address] [place] [address] Commodity Industry Analyst 10/07/23 05/03/24 [place] [address] [address] [place] [address] Consulting Physician Nephrology 10/22/23 documented as of this encounter
--- OUTSIDE RECORDS SUMMARY | 2024-07-04 04:04 | XMS_ITS | Encounter Summary ---
Author Organization [facility] Healthcare Address [address] [place] [address] Care Team Providers Care Retail Service Representative Name Role Phone Cherelle Corcoran MD Primary Care Pro vider Mark Queen MD Unavailable [phone] Rudolph Welch MD Unavailable Markie Ryan MD Unavailable [phone] Dulce Vega RN Unavailable Jimbo Strauss MD Unavailable [phone] Reason for Visit * Reason Comments Shoulder Pain Encounter Details Date Type Department Care Team (Late st Contact Info) Description 12/29/2023 6:37 PM CDT - 12/30/2023 4:00 PM CDT Emergency [facility] Emergency Department [address] [place] [id number] Chronic shoulder pain, unspecified laterality (Primary Dx); ESRD (end stage renal disease) (CMS/HCC) (HCC) Discharge Disposition: Discharge to home [...] materials from doctor or pharmacy Never 12/28/2023 [facility] Utilities Answer Date Recorded In the past 12 months has th e [employer], oil, or water [employer] threatened to shut off services in your [...] often do you attend chur ch or zoroastrianism services? More than 4 times per year [...] any time in the past 12 m [facility], were you homeless or living in a fpc (including now)? No 12/21/2023 Personal Safety Answer Date Recorded Have you ever been in or are you currently in a harmful physical or emotional relationship or is someone making you feel afraid or unsafe? 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 Gender Identity Female 02/08/2020 6:39 PM CDT Sexual Orientation Not on file documented as of this encounter Last Filed Vital Signs Vital Sign Reading Time Taken Comments Blood Pressure 167/67 12/30/2023 2:57 PM CDT Pulse 68 12/30/2023 2:57 PM CDT Temperature 36.3 ??C (97.4 ??F) 12/30/2023 11:45 AM C DT Respiratory Rate 15 12/30/2023 2:57 PM CDT Oxygen Saturation 100% 12/30/2023 2:57 PM CDT Inhaled Oxygen Concentration - - Weight - - Height - - Body Mass Index - - documented in this encounter Discharge Instructions * Discharge Instructions* Miguel Ramos PA - 12/30/2023 2:04 PM CDT Please try the prescribed gel in addition to your normal home medications for your chronic shoulderpain. Resume home dialysis. Return to the ER as needed shortness of breath or other worrisome symptoms documented in this encounter Medications at Time of Discharge acetaminophen 500 mg capsule Take 2 capsules (1,000 mg total) by mouth 3 (three) times a day as needed for mild pain (pain scale 1-4) blood-glucose sensor (FreeStyle Madhav 3 Sensor) deviceIndication s:Type 2 diabetes mellitus with diabetic neuropathy, with long-term current use of insulin (HCC) Use for continuous glucose monitoring. Change sensor every 14 days 6 each 3 06/30/2023 docusate sodium (COLACE) 100 mg capsule Take 1 capsule (100 mg total) by mouth every 12 (twelve) hours 60 capsule 12/03/2023 flash glucose scanning reader miscIndications: Type 2 diabetes mellitus with diabetic neuropathy, with long-term current use of insulin (HCC) Use Madhav 3 reader to scan Madhav 3 sensor 1 each 06/30/2023 fluticasone propionate (FLONASE) 50 mcg/actuation nasal spray Administer 2 sprays into each nostril daily as needed for rhinitis FreeStyle Madhav 3 [place] misc Use Madhav 3 reader to scan [...] diabetic (Easy Touch) 32 gauge x 5/32 needleIndication s:Type 2 diabetes mellitus with diabetic neuropathy, with long-term current use of insulin (HCC) USE DIRECTED FOUR TIMES DAILY 100 each 3 12/02/2023 polyethylene glycol (MIRALAX) 17 gram/dose bulk powder Take 17 g by mouth daily as needed (Constipation) 595 g 10/22/2023 aspirin 81 mg chewable tablet Take 1 tablet (81 mg total) by mouth daily 12/28/2023 4 aspirin 81 mg enteric coated tablet Take 1 tablet (81 mg total) by mouth daily 30 tablet 11 11/03/2023 4 atorvastatin (LIPITOR) 40 mg tablet Take 1 tablet (40 mg total) by mouth nightly 30 tablet 11 11/03/2023 4 benztropine (COGENTIN) 2 mg tablet Take 1 tablet (2 mg total) by mouth daily 30 tablet 12/25/2023 4 calcium acetate,phosphat bind, (PHOSLO) 667 mg capsule TAKE 1 CAPSULE(667 MG) BY MOUTH THREE TIMES DAILY WITH MEALS 270 capsule 10/29/2023 4 carvediloL (COREG) 3.125 mg tablet Take 1 tablet (3.125 mg total) by mouth 2 (two) times a day with meals 180 tablet 3 12/18/2023 4 diclofenac sodium (VOLTAREN) 1 % gel Apply 4 g topically 3 (three) times a day 100 g 12/30/2023 4 famotidine (PEPCID) 10 mg tablet Take 1 tablet (10 mg total) by mouth daily 4 ferrous sulfate 325 mg (65 mg of elemental iron) tablet Take 1 tablet (65 mg of elemental iron total) by mouth 2 (two) times a day 4 flash glucose sensor (FreeStyle Madhav 2 Sensor) kitIndications:T ype 2 diabetes mellitus with diabetic neuropathy, with long-term current use of insulin (HCC) Use to continually monitor glucose, change every 14 days 6 kit 3 03/24/2023 4 hydrALAZINE (APRESOLINE) 25 mg tabletIndication s:hypertension Take 1 tablet (25 mg total) by mouth 3 (three) times a day 90 tablet 12/25/2023 4 NIFEdipine (PROCARDIA XL/ADALAT CC) 60 mg 24 hr tablet Take 1 tablet (60 mg total) by mouth daily 30 tablet 12/25/2023 4 risperiDONE (RisperDAL) 2 mg tablet Take 1 tablet (2 mg total) by mouth nightly 30 tablet 12/25/2023 4 traMADoL (ULTRAM) 25 mg tablet Take 1 tablet (25 mg total) by mouth every 8 (eight) hours as needed for pain for up to 7 days 20 tablet 12/30/2023 4 documented as of this encounter Ordered Prescriptions Prescription Sig Dispense Quantity Refills Last Filled Start Date End Date diclofenac sodium (VOLTAREN) 1 % gel Apply 4 g topically 3 (three) times a day 100 g 12/30/2023 4 documented in this encounter Discharge Disposition Disposition Code Departure Means Destination Comment s Discharge to home or self care documented in this encounter Progress Notes * Yeny Tucker RN - 12/30/2023 1:58 AM CDT Dialysis Report Reason for Admit - Chronic left shoulder pain , missed HD 12/28 Code status - Prior Orientation status - baseline A&O 2-3 depending on time of day Isolation - none Are they on tele/ what's the rhythm - no Is Patient NPO- no Is patient on tube feeds- no (tube feeds will have to be held/paused and disconnected with travel) Diabetic/ next ACCU check due - yes, every 4 hrs Are they on oxygen / L - no Any meds given (Abx, midodrine, BP meds) -no Any blood pressures issues - no On any drips - no (Amiodarone <5mg/min & stable; Nitroglycerin </= 50mcg; Diltiazem </=15mg/hr stable) Any meds to give with dialysis (Epo, ferrlecit, procrit, aranesp, Abx post treatment)- no Any pain issues/ Pain meds given - Left shoulder pain Any other procedures pending - no Where is the dialysis access - [facility] Any labs to draw -no Does patient need blood -no Does pt have current wt in Epic- no What is it- Is patient continent- Is patient on AWAS precautions -no Is patient Elopement precautions- no Does the the patient have a trach - no (No cuffed trachs on floor, unless it is deflated). Has patient been off the vent for 48 hours-na What is the estimate discharge date - still in ED Any concerns about patient - no Report received from - chart review, Kiley LAY Are you ok with secure chat documented in this encounter Consult Notes * Shayne Robertson MD - 12/29/2023 9:17 PM CDTAssociated Order(s): IP CONSULT TO NEPHROLOGY NEPHROLOGY INITIAL CONSULTATION NOTE REASON FOR CONSULT: ESRD patient, hypertensive, missed diaylsis today REQUESTING PROVIDER: No admitting provider for patient encounter. CHIEF COMPLAINT/REASON FOR ADMISSION: Left shoulder pain HPI Ms. Chakraborty is a 73 y.o. female with a history of ESRD on HD TThS, CHF, hypertension, type 2 diabetes mellitus, hyperlipidemia, left rotator cuff tear who presented to the hospital with Left shoulderpain. Renal consultation is requested for the management of ESRD and HD. Patient usually follows with Dr. Ryan for management of ESRD. Patient was last seen on 12/25 and at that time, the assessment and plan for their renal disease was management of ESRD and related issues. History today is obtained from patient and her daughter. I also reviewed records from the following unique sources (external institutions or providers from different services): previous and outside records. REVIEW OF SYSTEMS: As per HPI. All other systems are negative. MEDICAL HISTORY Past Medical History: Diagnosis Date [...] LINE PLACEMENT > 5 YEARS N/A 10/15/2023 MEDICATIONS: HOME MEDICATIONS : acetaminophen 500 mg capsule aspirin 81 mg enteric coated tablet atorvastatin (LIPITOR) 40 mg tablet benztropine (COGENTIN) 2 mg tablet blood-glucose sensor (FreeStyle Madhav 3 Sensor) device calcium acetate,phosphat bind, (PHOSLO) 667 mg capsule carvediloL (COREG) 3.125 mg tablet docusate sodium (COLACE) 100 mg capsule famotidine (PEPCID) 10 mg tablet ferrous sulfate 325 mg (65 mg of elemental iron) tablet flash glucose scanning reader misc flash glucose sensor (FreeStyle Madhav 2 Sensor) kit fluticasone propionate (FLONASE) 50 mcg/actuation nasal spray FreeStyle Madhav 3 [place] misc hydrALAZINE (APRESOLINE) 25 mg tablet insulin glargine 100 unit/mL (3 mL) pen for injection insulin lispro (HumaLOG, ADMELOG) 100 unit/mL vial for injection lidocaine (ASPERCREME) 4 % adhesive patch,medicated NIFEdipine (PROCARDIA XL/ADALAT CC) 60 mg 24 hr tablet pen needle, diabetic (Easy Touch) 32 gauge x 5/32 needle polyethylene glycol (MIRALAX) 17 gram/dose bulk powder risperiDONE (RisperDAL) 2 mg tablet omeprazole (PriLOSEC) 20 mg capsule SCHEDULED MEDS CONTINUOUS MEDS PRN MEDS cephalexin, 250 mg, oral, Daily lidocaine, 1 patch, transdermal, Q24H ALLERGIES No Known Allergies SOCIAL AND FAMILY HISTORY Social History Tobacco Use Smoking status: Never Smokeless tobacco: Never Substance and Sexual Activity Drug use: Never Sexual activity: Not Currently Partners: Male Alcohol Use: Not At Risk (12/18/2023) AUDIT-C Frequency of Alcohol Consumption: Never Average Number of Drinks: Patient does not drink Frequency of Binge Drinking: Not on file Family History Problem Relation Age of Onset Diabetes Mother Heart disease Mother Kidney disease Mother Stomach cancer Father Alcohol abuse Father Diabetes Sister Diabetes Sister Diabetes Brother PHYSICAL EXAM: VITAL SIGNS: T36.7 ??C (98.1 ??F); HR 79; BP (!) 175/127; RR 19; SpO2 97 % 24hr Min/Max: Intake/Output Temp Min: 36.7 ??C (98.1 ??F) Max: 36.7 ??C (98.1 ??F) Pulse Min: 71 Max: 92 BP Min: 156/93 Max: 223/86 Resp Min: 15 Max: 19 SpO2 Min: 74 % Max: 100 % No intake/output data recorded. No intake/output data recorded. GENERAL: No acute distress. HENT: MM pink and moist. Oropharynx clear. EYES: Sclera anicteric. CVS: regular rate and rhythm, normal S1 and S2, no murmur, rub, or gallop, no rub or gallop trace to 1+ bilateral pedal edema LUNGS: clear to auscultation bilaterally ABD: Soft, non-tender, normal bowel sounds; no bruits, organomegaly or masses. SKIN: No rash INVENTORY TAKER: alert and oriented times 3 PSYCH: Pleasant, cooperative, appropriate affect MSK: No joint swelling or tenderness DIALYSIS ACCESS EXAM: Primary Access: tunneled catheter Location of Primary Site: [facility] Primary Site Assessment: healthy LABORATORY DATA: Recent Labs Lab Units 12/29/23200612/26/2341512/25/23 1518 WBC K/cumm 13.4* 14.2* 11.6* HEMOGLOBIN g/dL 8.8* 8.7* 9.3* PLATELETS K/cumm 326 277 280 Recent Labs Lab Units 12/29/23200612/26/2341512/25/23 1518 SODIUM mmol/L 146* 136 134* POTASSIUM PLASMA mmol/L 4.7 4.2 4.7 CHLORIDE mmol/L 107 99 93* CO2 mmol/L 27 26 26 BUN SERUM mg/dL 60* 43* 37* CREATININE mg/dL 5.09* 4.40* 3.70* ALBUMIN g/dL -- -- 4.0 CALCIUM mg/dL 9.6 8.5 9.0 Recent Labs Lab Units 12/29/23200612/26/2341512/25/23 1518 CALCIUM mg/dL 9.6 8.5 9.0 RADIOLOGY: Left Shoulder X-Ray 12/29/2023 IMPRESSION: Comparison is made to shoulder radiographs dated 12/02/2023. No acute fracture or dislocation. Sclerosis over the acromion and humeral head is unchanged and likely represents sequela of chronic degenerative changes. There is mild acromioclavicular and glenohumeral osteoarthritis. Soft tissues are within normal limits. IMPRESSION AND RECOMMENDATIONS End-stage renal disease: -Presumed to be secondary to diabetes and hypertension. -Started around 2 months ago. -Schedule: TThS. -Last iHD on 12/25. -Will order dialysis. -Prescription: 3.5 Hrs, 1 L UF, 3K+/2.5Ca+/Na+ 138. -Monitor renal function panel. Hypertension: -Uncontrolled. -Resume antihypertensives accordingly. -Expect to improve with dialysis. Anemia in ESRD: -Hb of 8.8 g/dL. Not at goa. -Monitor and transfuse accordingly. -Goal is to keep Hb > 7 g/dL. Secondary hyperparathyroidism/Renal Osteodystrophy: -Calcium 9.6 no phos. -No new PTH and vitamin D. -Monitor Calcium and phos 2-3 times per week. -Low phos diet. Volume status: -Euvolemic. Vascular access issues: -Patient's Tunneled catheter is working well. Please protect vascular access extremity from any venipunctures or blood pressure monitoring. Please place sign above bed to protect the extremity. Do not place PICC lines in either extremity. Medication dosing: -Reviewed. Please dose all medications for eGFR < 15 ml/min. Shayne Humphrey MD Nephrology Fellow, PGY-5. Dialysis PEDIATRIC SPEECH LANGUAGE PATHOLOGIST Service, From 4 PM-6AM on + after 12 PM on Thursday + all day Thursday, please contact renal fellow suggestion clerk at Cosigned by Mary Alice Lopez MD at 12/30/2023 11:54 AM CDT Associated attestation - Mary Alice Lopez MD - 12/30/2023 11:54 AM CDT I saw and examined the patient on 12/30/23. I agree with the findings and plan of care as documented in the renal fellow/resident's note. Pt presented with left shoulder pain which is being evaluated by the ED team. Currently has no complaints and denies CP, SOB, dizziness. Has had intermittent edema. Has ESRD on HD TTS. Missed HD yesterday. Plan HD this AM. Please check serum phos. Supplemental Attestation: Today, I am treating the patient for end stage kidney disease which requires HD 3x/week. I reviewed records from other care teams: ED The patient is being intensively monitored for dialysis needs that are being determined on a day-to-day basis due to ESRD. Mary Alice Lopez MD crank hand documented in this encounter Nursing Notes * Breanna Zuniga RN - 12/30/2023 12:28 PM CDT Hemodialysis treatment completed. Patient tolerated treatment well and was able to remove 1.1 liters of fluid, goal met. Vital signs stable. CVC de-accessed and flushed with 10 mLs normal saline and heparin locked as ordered, new red caps applied. Resting in bed, bed low and locked, call light in reach, no signs of distress noted. Awaiting transport to home floor. secured report given to primary RN. spKt/V - 1.90 spkURR- 85 eKt/V- 1.61 * Breanna Zuniga RN - 12/30/2023 9:29 AM CDT Labs,vitals and medication reviewed per [employer]. Patient verified via armband. Patient resting in bed when arrived to dialysis, call light in reach. Report received from floor nurse. Dialysis treatment explained to patient. Right CVC accessed, both lumens patent,positive blood return, and flushes well. Hemodialysis treatment started. Acceptable blood flow rate achieved, pressures within range. Treatment set for 3.5 hours with 1.0 liters fluid removal. Clinical Goals for Treatment: Prevent and manage potential signs and symptoms of complications of hemodialysis. Dialysis access site, blood lines, connections, and patients face will be visible during dialysis treatment. Vital signs will be charted every 15 minutes on a continuous child monitor while on dialysis treatment. Patient will remain free from falls/injury during dialysis. documented in this encounter ED Notes * Daniella Delong RN - 12/30/2023 12:33 PM CDT Bed: ED2[facility] Expected date: Expected time: Means of arrival: Comments: Wilda Spivey to dialysis at 744 Daniella Delong RN 12/30/23 1233 * Nanette Magallon NP - 12/29/2023 8:25 PM CDT Visit Date: 12/29/2023 Triage Time: 1837 Age: 73 y.o. Service: Emergency Medicine ER Provider: Nanette Magallon NP Patient Name: Barbara Chakraborty : 1950 Gender: female PCP: Cherelle Corcoran MD Code Status: Prior Allergies: No Known Allergies Chief Complaint Patient presents with Shoulder Pain HISTORY OF PRESENT ILLNESS Barbara Chakraborty is a 73 yr old female with past medical history arthritis, anemia of renal disease, arthropathy of left shoulder, CKD, ESRD on hemodialysis (Tues, Thur and Satur); followed by Dr Ryan,Parkinsonism, hyperlipidemia, hypertension, schizophrenia and type 2 diabetes who presents to the emergency department for left shoulder pain that has been present since mid November. She relates the pain started after she picked up her 2 yr old grandson. Xray from 12/01 show, Moderate osteoarthritic changes of the AC joint with [id number] osteoarthritic changes of the glenohumeral joint. Thereis obvious superior subluxation of the humeral head which is indicative of chronic rotator cuff tear. Pt was seen by Orthopedics and has had fluorescein guided injection to the left shoulder with minimal relief in pain. Pt reports has been taking tylenol 1000 mg TID, Ice and Lidocaine patches. Missed dialysis today due to having increased shoulder pain. She reports of intermittent numbness that ra diates down her arm. No tingling. She reports pain is exacerbated by movement. She denies any trauma or injuries. Pt denies any neck or back pain. No chest pain or sob. No abdominal pain, nausea, vomiting or diarrhea. No fever or chills. Pt is hypertensive. Again, missed dialysis. Also has not had any blood pressure medication since discharged from [facility] on 12/26/2023. Per chart review: Pt was admitted at [facility] from 12/18-12/25 after patient experienced asyncopal episode during her dialysis treatment. History provided by: Patient and medical records spanish interpreter used: No Patient History: Patient Active Problem List Diagnosis Date Noted ESRD on dialysis ([facility]) 12/20/2023 Anemia of renal disease 12/20/2023 Syncope, unspecified syncope type 12/19/2023 Leukocytosis 12/19/2023 Renal disorder Pain in left arm 12/11/2023 Arthropathy of left shoulder 12/11/2023 CKD (chronic kidney disease) stage 4, GFR 15-29 ml/min ([facility]) ([facility]) 12/07/2023 Tinnitus of both ears 11/04/2023 Mixed conductive and sensorineural hearing loss of both ears 11/04/2023 Dysfunction of both eustachian tubes 11/04/2023 ESRD on hemodialysis ([facility]) ([facility]) 11/02/2023 AMS (altered mental status) 10/30/2023 Leg swelling 10/07/2023 Bandemia 12/20/2022 Shortness of breath 12/13/2022 Acute on chronic diastolic congestive heart failure ([facility]) ([facility]) 12/06/2022 Bibasilar consolidations 12/06/2022 Movement disorder 12/06/2022 Abnormal urinalysis 11/07/2022 Anemia in chronic kidney disease, on chronic dialysis ([facility]) 10/10/2022 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[facility]) 08/14/2022 Pulmonary nodule 11/16/2021 Physical deconditioning 11/15/2021 Toe necrosis ([facility]) ([facility]) 10/07/2021 Volume overload 09/06/2021 Retention of urine, unspecified 08/22/2021 Unspecified osteoarthritis, unspecified site 08/22/2021 Unsteadiness on feet 08/22/2021 Weakness 08/22/2021 Late onset Alzheimer's dementia without behavioral disturbance ([facility]) 08/19/2021 Encounter for Medicare annual wellness exam 01/08/2021 Schizoaffective disorder, bipolar type ([facility]) ([facility]) 10/10/2020 Mixed hyperlipidemia 04/03/2020 Iron deficiency anemia 04/02/2020 Gastroesophageal reflux disease without esophagitis 04/02/2020 History of amputation of toe ([facility]) ([facility]) 01/19/2020 Primary hypertension 12/13/2019 Type 2 diabetes mellitus with diabetic neuropathy, with long-term current use of insulin ([facility]) 08/30/2019 Diabetic neuropathy ([facility]) Past Medical History: Diagnosis Date Anemia Arthritis CHF (congestive heart failure) ([facility]) ([facility]) CKD (chronic kidney disease) stage V requiring chronic dialysis ([facility]) Dementia ([facility]) Depression Diabetic neuropathy ([facility]) GERD (gastroesophageal reflux disease) HL (hearing loss) [...] Frequency of Binge Drinking: Not on file Social History Social History Narrative Originally From [place] Grew up with her mom and dad. 12th grade - graduated. [employer]. [employer] - none. [employer]. I never worked. Single. Vamp Strap Ironer completed by using M*Modal Fluency Direct speaking software, therefore, transcriptionvariances of spelling and dictation may occur. SUBJECTIVE Review of Systems Constitutional: Negative for chills and fever. HENT: Negative for congestion. Eyes: Negative for visual disturbance. Respiratory: Negative for shortness of breath. High blood pressure Cardiovascular: Negative for chest pain, palpitations and leg swelling. Gastrointestinal: Negative for abdominal pain, nausea and vomiting. Genitourinary: Negative for difficulty urinating. Musculoskeletal: Positive for arthralgias. Negative for joint swelling, neck pain and neck stiffness. Skin: Negative for rash. Neurological: Positive for numbness. Negative for weakness. OBJECTIVE ED Triage Vitals Temp Pulse Resp BP SpO2 12/29/23 1653 12/29/23 1459 12/29/23 1459 12/29/23 1459 12/29/23 1459 36.7 ??C (98.1 ??F) 92 18 (!) 223/86 99 % Temp src Heart Rate Source Patient Position BP Location FiO2 (%) 12/29/23 1653 12/30/23 0800 12/30/23 0800 12/30/23 0800 -- Oral Monitor Lying Right arm Height Height Method Weight Weight Method -- -- -- -- Physical Exam Constitutional: General: She is not in acute distress. HENT: Head: Normocephalic and atraumatic. Right Ear: External ear normal. Left Ear: External ear normal. Mouth/Throat: Mouth: Mucous membranes are moist. Eyes: Conjunctiva/sclera: Conjunctivae normal. Cardiovascular: Rate and Rhythm: Normal rate and regular rhythm. Heart sounds: Normal heart sounds. Comments: High blood pressure Pulmonary: Effort: Pulmonary effort is normal. Breath sounds: Normal breath sounds. Abdominal: General: Bowel sounds are normal. There is no distension. Palpations: Abdomen is soft. Tenderness: There is no abdominal tenderness. Musculoskeletal: General: No swelling, tenderness, deformity or signs of injury. Cervical back: Normal range of motion and neck supple. No tenderness. Right lower leg: No edema. Left lower leg: No edema. Comments: Right upper extremity, full range of motion. Left upper extremity. No obvious deformity noted. Pt is able to raise left arm above head with somepain. Pt reports pain is worse when she extends it away from the body. Good supervisor winding department strength. Positive radial pulse. Neurologically grossly intact Skin: General: Skin is warm. Capillary Refill: Capillary refill takes less than 2 seconds. Neurological: Mental Status: She is alert and oriented to person, place, and time. Sensory: No sensory deficit. Psychiatric: Mood and Affect: Mood normal. Clinically appropriate exam finds: Labs Ordered Labs Reviewed URINE CULTURE - Abnormal Result Value Report (*) Value: Preliminary Report: Greater than or equal to 100,000 colonies/mL of Enterococcus faecium Susceptibility testing results to follow. Plus growth of clinically insignificant bacterial shruti. Organism ENTEROCOCCUS FAECIUM Organism PLUS GROWTH OF CLINICALLY INSIGNIFICANT SHRUTI. Narrative: Specimen received in a sterile container. Indications for Culture:->Recent positive UA Testing performed by [facility] ([phone]) CBC WITH AUTO DIFFERENTIAL - Abnormal WBC 13.4 (*) Hgb 8.8 (*) Hct 28.1 (*) Plt 326 MPV 10.2 RBC 2.89 (*) MCV 97.2 (*) MCH 30.4 MCHC 31.3 (*) RDW CV 15.4 (*) RDW SD 53.9 (*) NRBC abs 0.00 BASIC METABOLIC PANEL - Abnormal Sodium 146 (*) Potassium, pl 4.7 Chloride 107 CO2 27 Anion gap 12 BUN 60 (*) Creatinine 5.09 (*) Glucose 201 (*) Calcium 9.6 DIFFERENTIAL AUTO - Abnormal Neutrophil abs 10.5 (*) Imm gran abs 0.1 Lymphocyte abs 1.9 Monocyte abs 0.7 Eosinophil abs 0.2 Basophil abs 0.0 Neutrophil pct 78.2 Imm gran pct 0.5 Lymphocyte pct 14.2 Monocyte pct 5.3 Eosinophil pct 1.6 Basophil pct 0.2 EGFR - Abnormal eGFR 8 (*) URINALYSIS AND REFLEX TO MICROSCOPIC - Abnormal Color, ur Straw Clarity, ur Clear Specific gravity, ur 1.013 pH, urine 6.5 Protein, ur ql 3+ (*) Glucose, ur ql 2+ (*) Ketones, ur Negative Bilirubin, ur Negative Blood, ur Trace (*) Urobilinogen, ur <2.0 Nitrite, ur Negative Leukocyte esterase, ur 2+ (*) UA reflex comment Reflex to microscopic UA will be performed. URINALYSIS, MICROSCOPIC ONLY - Abnormal WBC, ur 21-50 (*) RBC, ur 3-5 (*) Epithelial cells, squamous, ur 1-5 Epithelial cells, transitional, ur 1-5 Bacteria, ur 3+ (*) POCT GLUCOSE DEVICE - Abnormal Glucose, POC 202 (*) TYPE AND SCREEN Regi, indirect Negative ABO Rh B Positive Narrative: Has the patient had Daratumumab or Isatuximab in the past 6 months?->Unknown POCT GLUCOSE DEVICE POCT GLUCOSE DEVICE POCT GLUCOSE DEVICE POCT KETONE, BLOOD POCT GLUCOSE DEVICE Glucose, POC 182 POCT KETONE, BLOOD Ketones, Blood, POC 0.1 POCT GLUCOSE DEVICE Glucose, POC 174 POCT GLUCOSE DEVICE POCT GLUCOSE DEVICE POCT GLUCOSE DEVICE POCT GLUCOSE DEVICE POCT GLUCOSE DEVICE Glucose, POC 151 POCT GLUCOSE DEVICE Glucose, POC 138 Images Ordered XR Shoulder Left 2 or More Views Final Result Comparison is made to shoulder radiographs dated 12/02/2023. No acute fracture or dislocation. Sclerosis over the acromion and humeral head is unchanged and likely represents sequela of chronic degenerative changes. There is mild acromioclavicular and glenohumeral osteoarthritis. Soft tissues are within normal limits. Dictated by: Shaun Gonzales M.D. The radiology attending physician has personally reviewed this study, and had reviewed and/or edited this written report and agrees with it. Electronically signed by: Luci Faith M.D. ASSESSMENT & CARE ED Course ED Course as of 12/31/23 1814 Time: 12/28 2116 Comment: Consult to nephrology, she will be placed on the schedule for dialysis. By: Nanette Magallon NP Time: 12/28 2156 Value: Leukocyte esterase, ur(!): 2+ Comment: (Reviewed) By: Nanette Magallon NP Time: 12/28 2157 Value: WBC, ur(!): 21-50 Comment: (Reviewed) By: Nanette Magallon NP Time: 12/28 2202 Value: Bacteria, ur(!): 3+ Comment: (Reviewed) By: Nanette Magallon NP Time: 12/28 2300 Comment: No relief with tylenol for pain. Will order dose of Fentanyl for pain control By: Nanette Magallon NP Time: 12/28 2328 Comment: IMPRESSION: Comparison is made to shoulder radiographs dated 12/02/2023. No acute fracture or dislocation. Sclerosis over the acromion and humeral head is unchanged and likely represents sequela of chronic degenerative changes. There is mild acromioclavicular and glenohumeral osteoarthritis. Soft tissues are within normal limits. Dictated by: Shaun Gonzales M.D. By: Nanette Magallon NP Time: 12/29 862 Comment: Per dialysis nurse, pt is scheduled for dialysis between 730-8 am. By: Nanette Magallon NP Time: 12/29 0501 Comment: Pt is awake and moaning with pain to left shoulder. Will repeat tylenol and small dose of Fentanyl. Waiting for dialysis. By: Nanette Magallon NP Time: 12/29 0533 Value: BP(!): 193/66 Comment: Her does of nifedipine ordered. Pt waiting from dialysis. By: Nanette Magallon NP Time: 12/29 706 Comment: Signout from JARAD Magallon: 73F h/o chronic L shoulder pain/rotator cuff injury here with L shoulder pain that has been evaluated numerous times. Workup without acute findings. Missed dialysis yesterday to come here so is getting dialyzed today here at 730am By: Miguel Ramos PA Time: 12/29 0715 Comment: Sign out to Richard AYALA By: Nanette Magallon NP Time: 12/29 1402 Comment: Patient reports she is doing well back from dialysis, will discharge By: Richard, Miguel Kvng, PA Medications Given in the ED ED Medication Administration from 12/29/2023 1446 to 12/30/2023 1600 Date/Time Order Dose Route Action Action by 12/29/2023 1529 CDT lidocaine (ASPERCREME) 4 % patch 1 patch 1 patch transdermal Medication AppliedBenoist, B 12/30/2023 0351 CDT lidocaine (ASPERCREME) 4 % patch 1 patch 0 patch transdermal Medication RemovedKania, L 12/30/2023 1308 CDT lidocaine (ASPERCREME) 4 % patch 1 patch 1 patch transdermal Medication AppliedObertino, A 12/29/2023 205 CDT carvediloL (COREG) tablet 3.125 mg 3.125 mg oral Given Halley, L 12/29/2023 205 CDT hydrALAZINE (APRESOLINE) tablet 25 mg 25 mg oral Given Halley, L 12/29/2023 2207 CDT acetaminophen (TYLENOL) tablet 1,000 mg 1,000 mg oral Given Halley, L 12/30/2023 1310 CDT cephalexin (KEFLEX) capsule 250 mg 250 mg oral Given Obertino, A 12/29/2023 2311 CDT fentaNYL (SUBLIMAZE) preservative free injection 25 mcg 25 mcg intravenous Given Halley, L 12/30/2023 1302 CDT heparin 1,000 unit/mL injection 1.5-6.9 mL -- intra-catheter Not Given Obertino, A 12/30/2023 0511 CDT acetaminophen (TYLENOL) tablet 1,000 mg 1,000 mg oral Given Halley, L 12/30/2023 0512 CDT fentaNYL (SUBLIMAZE) preservative free injection 25 mcg 25 mcg intravenous Given Halley, L 12/30/2023 1310 CDT NIFEdipine (PROCARDIA XL/ADALAT CC) extended release tablet 60 mg 60 mg oral Given Obertino, A 12/30/2023 1305 CDT ketorolac (TORADOL) 30 mg/mL injection 15 mg 15 mg intravenous Given Obertino, A 12/30/2023 1100 CDT heparin 1,000 unit/mL injection 500 Units 500 Units dialysis circuit Not Given Obertino, A 12/30/2023 1200 CDT heparin 1,000 unit/mL injection 500 Units 500 Units dialysis circuit Not Given Obertino, A 12/30/2023 1302 CDT heparin 1,000 unit/mL injection 500 Units 500 Units dialysis circuit Not Given Bro Moralez Medical Decision Making MDM Number of Diagnoses or Management Options Chronic shoulder pain, unspecified laterality ESRD (end stage renal disease) ([facility]) ([facility]) Diagnosis management comments: 3 yr old female with past medical history arthritis, anemia of renaldisease, arthropathy of left shoulder, CKD, ESRD on hemodialysis (Tues, Thur and Satur); followed by Dr Ryan, Parkinsonism, hyperlipidemia, hypertension, schizophrenia and type 2 diabetes who presents to the emergency department for left shoulder pain that has been present since mid November. She relates the pain started after she picked up her 2 yr old grandson. Xray from 12/01 show, Moderate osteoarthritic changes of the AC joint with [id number] osteoarthritic changes of the glenohumeral joint. There is obvious superior subluxation of the humeral head which is indicative of chronic rotator cuff tear. Pt was seen by Orthopedics and has had fluorescein guided injection to the left shoulder with minimal relief in pain. Pt reports has been taking tylenol 1000 mg TID, Ice and Lidocaine patches. Missed dialysis today due to having increased shoulder pain. She reports of intermittent numbness that radiates down her arm. No tingling. She reports pain is exacerbated by movement. She deniesany trauma or injuries. Pt denies any neck or back pain. No chest pain or sob. No abdominal pain, nausea, vomiting or diarrhea. No fever or chills. Pt is hypertensive. Again, missed dialysis. Also has not had any blood pressure medication since discharged from [facility] on 12/26/2023. On exam: see physical assessment tab Plan: see orders Disposition: pending work up Amount and/or Complexity of Data Reviewed Clinical lab tests: reviewed Tests in the radiology section of CPT??: reviewed Decide to obtain previous medical records or to obtain history from someone other than the patient:yes Review and summarize past medical records: yes Discuss the patient with other providers: yes (Nephrology) Independent visualization of images, tracings, or specimens: yes DISPOSITION Disposition Decision Discharge Outpatient Medications Prescribed ED Prescriptions Medication Sig Dispense Start Date End Date Auth. Provider diclofenac sodium (VOLTAREN) 1 % gel Apply 4 g topically 3 (three) times a day 100 g 12/30/2023 -- Miguel Ramos PA Final Diagnosis and Plan Final diagnoses: Chronic shoulder pain, unspecified laterality ESRD (end stage renal disease) ([facility]) ([facility]) Discharge Instructions Discharge Instructions Please try the prescribed gel in addition to your normal home medications for your chronic shoulderpain. Resume home dialysis. Return to the ER as needed shortness of breath or other worrisome symptoms Patient Instructed to Follow Up With Cherelle Corcoran MD [facility] [address] Schedule an appointment as soon as possible for a visit in 1 week For follow up without fail Condition on Departure Vitals: 12/30/23 1238 12/30/23 1453 12/30/23 1457 BP: 163/63 168/62 167/67 Pulse: 65 67 68 Resp: 15 17 15 Temp: SpO2: 100% 97% 100% Nanette Magallon APRN-[facility] Emergency Medicine Nanette Magallon NP 12/31/23 181 * Tahmina Lepe RN - 12/29/2023 6:39 PM CDT Bed: ED3 Expected date: Expected time: Means of arrival: Comments: Tahmina Hirsch RN 12/29/23 183 * Tahmina Lepe RN - 12/29/2023 6:37 PM CDT Bed: ED3-04 Expected date: Expected time: Means of arrival: Comments: Tahmina Ariza RN 12/29/23 183 * Kami Mcelroy RN - 12/29/2023 2:59 PM CDT Pt coming in with chronic left shoulder pain. Pt has had significant pain since this morning. Pain was isolated to her shoulder but now the whole arm is painful.Pulse palpable. Pt was diagnosed with a rotator cuff tear, pt was suppose to go to physical therapy but patient has been unable d/t pain. Pt was unable to get dialysis today. Hypertensive in triage. Pt has had 2 left shoulder injections. documented in this encounter Plan of Treatment Upcoming Encounters Date Type Department Care Team (Latest Contact Info) Description 07/13/2024 9:00 AM CARE CENTER MANAGER Hospital Encounter [facility] [address] [place] [phone] Jaya Grier MD [address] [place] [address] DR GAINES [address] [place] [phone] 07/13/2024 9:00 AM CARE CENTER MANAGER - 07/13/2024 9:30 AM CARE CENTER MANAGER Surgery [facility] [address] [place] [id number] Jaya Grier MD [address] [place] [address] DR GAINES [address] [place] [id number] ESOPHAGOGASTRODUODENOSCOPY Scheduled Procedures Name Priority Associated Diagnoses Date/Ti nm ESOPHAGOGASTRODUODENOSCOPY Anemia, unspecified type Gastritis without bleeding, unspecified chronicity, unspecified gastritis type 07/13/2024 9:00 AM CARE CENTER MANAGER COLONOSCOPY Iron deficiency anemia due to chronic blood loss documented as of this encounter Procedures Procedure Name Priority Date/Time Associated Diagnosis Comments POCT GLUCOSE DEVICE Routine 12/30/2023 2 :56 PM CDT POCT GLUCOSE DEVICE Routine 12/30/2023 6 :00 AM CDT HEMODIALYSIS Routine 12/30/2023 12:26 AM CDT POCT GLUCOSE DEVICE Routine 12/29/2023 1 0:54 PM CDT XR SHOULDER LEFT 2 OR MORE VIEWS ED 12/29/2023 10:25 PM CDT TYPE AND SCREEN STAT 12/29/2023 10:12 PM CDT URINE CULTURE STAT 12/29/2023 10:12 PM CDT URINALYSIS AND REFLEX TO MICROSCOPIC STAT 12/29/2023 9:07 PM CDT URINALYSIS, MICROSCOPIC ONLY STAT 12/29/2023 9:07 PM CDT EGFR STAT 12/29/2023 8:07 PM CDT DIFFERENTIAL AUTO STAT 12/29/2023 8:0 7 PM CDT CBC WITH AUTO DIFFERENTIAL STAT 12/29/2023 8:07 PM CDT BASIC METABOLIC PANEL STAT 12/29/2023 8:07 PM CDT POCT GLUCOSE DEVICE Routine 12/29/2023 7 :21 PM CDT POCT GLUCOSE DEVICE Routine 12/29/2023 3 :11 PM CDT POCT KETONE, BLOOD Routine 12/29/2023 3: 10 PM CDT documented in this encounter Results * POCT glucose (12/30/2023 2:56 PM CDT) [facility] Signature Glucose, POC 138 70 - 199 mg/dL Blood 12/30/2023 2:56 PM CDT 12/30/2023 2:56 PM CDT us Notinfile Unknown LAB POCT ORDERABLES - DEVICE F inal Result [facility] Department [place] [address] * POCT glucose (12/30/2023 6:00 AM CDT) Glucose, POC 151 70 - 199 mg/dL Blood 12/30/2023 6:00 AM CDT 12/30/2023 6:00 AM CDT us Notinfile Unknown LAB POCT ORDERABLES - DEVICE F inal Result Performing Organization Address [facility] de Phone Number [facility] [place] [address] * POCT glucose (12/29/2023 10:54 PM CDT) Glucose, POC 174 70 - 199 mg/dL Blood 12/29/2023 10:5 4 PM CDT 12/29/2023 10:54 PM CDT us Notinfile Unknown LAB POCT ORDERABLES - DEVICE F inal Result Performing Organization Address [facility] Phone Number [facility] [place] [address] * XR Shoulder Left 2 or More Views (12/29/2023 10:25 PM CDT) Anatomical Region Laterality Modality Upper Extremities, Shoulder Left Comp uted Radiography 12/29/2023 11:2 3 PM CDT Impressions 12/30/2023 3:09 PM CDT Comparison is made to shoulder radiographs dated 12/02/2023. No acute fracture or dislocation. ??Sclerosis over the acromion and humeral head is unchanged and likely represents sequela of chronic degenerative changes. ??There is mild acromioclavicular and glenohumeral osteoarthritis. ??Soft tissues are within normal limits. Dictated by: Shaun Gonzales M.D. The radiology attending physician has personally reviewed this study, and had reviewed and/or edited this written report and agrees with it. Electronically signed by: Luci Faith M.D. Narrative 12/30/2023 3:09 PM CDT EXAMINATION: XR SHOULDER LEFT 2 OR MORE VIEWS HISTORY: Chronic right shoulder pain Procedure Note Luci Faith MD - 12/30/2023 EXAMINATION: XR SHOULDER LEFT 2 OR MORE VIEWS HISTORY: Chronic right shoulder pain IMPRESSION: Comparison is made to shoulder radiographs dated 12/02/2023. No acute fracture or dislocation. Sclerosis over the acromion and humeral head is unchanged and likely represents sequela of chronic degenerative changes. There is mild acromioclavicular and glenohumeral osteoarthritis. Soft tissues are within normal limits. Dictated by: Shaun Gonzales M.D. The radiology attending physician has personally reviewed this study, and had reviewed and/or edited this written report and agrees with it. Electronically signed by: Luci Faith M.D. Nanette Magallon NP IMG XR PROCEDURES Final Result * (ABNORMAL) Urine culture Urine, bladder (12/29/2023 10:12 PM CDT) Report Final Report: Greater than or equal to 100,000 colonies/mL of Enterococcus faecium Plus growth of clinically insignificant bacterial shruti. (.) Organism ENTEROCOCCUS FAECIUM [facility] Organism PLUS GROWTH OF CLINICALLY INSIGNIFICANT SHRUTI. [facility] Urine, bladder 12/29/2023 10 :12 PM CDT 12/29/2023 10:22 PM CDT Narrative [facility] - 01/03/2024 11:32 AM CDT Specimen received in a sterile container. Indications for Culture:->Recent positive UA Testing performed by [facility] ([phone]) Organism Antibiotic Method Susceptibility Enterococcus faecium Daptomycin (CINTIA) (CINTIA) INTERPRETA TION Susceptible Dose-dependent Enterococcus faecium Ampicillin (CINTIA) INTERPRETATION Resistant Enterococcus faecium Vancomycin (CINTIA) INTERPRETATION Resistant Enterococcus faecium Linezolid (CINTIA) INTERPRETATION Susceptible Enterococcus faecium Doxycycline (CINTIA) INTERPRETATION Resistant Enterococcus faecium Nitrofurantoin (CINTIA) INTERPRETATI ON Intermediate Nanette Magallon NP LAB MICROBIOLOGY - GENERAL ORDER ARIADNA Final Result [facility] [place] [address] * Type and screen (12/29/2023 10:12 PM CDT) Regi, indirect Negative ABO Rh B Positive [facility] Blood 12/29/2023 10:1 2 PM CDT 12/29/2023 10:25 PM CDT Narrative [facility] - 12/29/2023 11:35 PM CDT Has the patient had Daratumumab or Isatuximab in the past 6 months?->Unknown [facility] BLOOD BANK TEST ORDERABLES F inal Result Performing Organization Address [facility] Co de Phone Number [facility] [place] [address] * (ABNORMAL) Urinalysis, microscopic only (12/29/2023 9:07 PM CDT) WBC, ur 21-50(A) 0 - 5 /HPF RBC, ur 3-5(A) 0 - 2 /HPF [facility] Epithelial cells, squamous, ur 1-5 0 - 5 /HPF [facility] Epithelial cells, transitional, ur 1-5 0 - 0 /HPF [facility] Bacteria, ur 3+(A) [facility] Urine 12/29/2023 9:07 PM CDT 12/29/2023 9:16 PM CDT [employer] LAB URINE ORDERABLES Final Resul t Performing Organization Address [facility] [place] [address] * (ABNORMAL) Urinalysis reflex to microscopic (12/29/2023 9:07 PM CDT) Color, ur Straw Yellow Clarity, ur Clear Clear [facility] Specific gravity, ur 1.013 1.003 - 1.030 [facility] pH, urine 6.5 [facility] Comment: Interpretive Data ? Urine pH is affected by diet, medications, systemic acid-base disturbances, and renal tubular function. ??pH may affect urinary stone formation. ??For example, urine pH below 6.0 may help reduce the tendency for calcium phosphate stones and pH greater than 6.0 may reduce the tendency for uric acid stone formation. Source: [facility] Current Interpretive Data was last revised on 2017 Protein, ur ql 3+(A) Negative [facility] Glucose, ur ql 2+(A) Negative [facility] [place] Ketones, ur Negative Negative [facility] [place] Bilirubin, ur Negative Negative [facility] [place] Blood, ur Trace(A) Negative [facility] [place] Urobilinogen, ur <2.0 <2.0 mg/dL [facility] Nitrite, ur Negative Negative [facility] Leukocyte esterase, ur 2+(A) Negative [facility] [place] UA reflex comment Reflex to microscopic UA will be performed. [facility] Urine 12/29/2023 9:07 PM CDT 12/29/2023 9:16 PM CDT Nanette Magallon NP LAB URINE ORDERABLES Final Resul t [facility] Department [place] [address] * (ABNORMAL) eGFR (12/29/2023 8:07 PM CDT) eGFR 8(L) >=60 mL/min/1. 73 m2 Comment: Interpretive Data [...] Current interpretive data was last reviewed 2021. Blood 12/29/2023 8:07 PM CDT 12/29/2023 8:22 PM CDT us Belkys Montanez NP LAB BLOOD ORDERABLES Blessing alicea Result [facility] Department [place] [address] * (ABNORMAL) Differential, auto (12/29/2023 8:07 PM CDT) Neutrophil abs 10.5(H) 1.5 - 6.5 K/cumm Imm gran abs 0.1 0.0 - 0.1 K/cumm [facility] Lymphocyte abs 1.9 0.8 - 3.3 K/cumm [facility] Monocyte abs 0.7 0.2 - 0.8 K/cumm [facility] Eosinophil abs 0.2 0.0 - 0.5 K/cumm [facility] Basophil abs 0.0 0.0 - 0.1 K/cumm [facility] Neutrophil pct 78.2 % [facility] Comment: Interpretive Data Percent cell count reference ranges are not reported, since discordance with absolute values may lead to misinterpretation of CBC data. Current Interpretive Data was last revised on 2017. Imm gran pct 0.5 % [facility] Comment: Interpretive Data Percent cell count reference ranges are not reported, since discordance with absolute values may lead to misinterpretation of CBC data. Current Interpretive Data was last revised on 2017. Lymphocyte pct 14.2 % [facility] Comment: Interpretive Data Percent cell count reference ranges are not reported, since discordance with absolute values may lead to misinterpretation of CBC data. Current Interpretive Data was last revised on 2017. Monocyte pct 5.3 % [facility] Comment: Interpretive Data Percent cell count reference ranges are not reported, since discordance with absolute values may lead to misinterpretation of CBC data. Current Interpretive Data was last revised on 2017. Eosinophil pct 1.6 % [facility] Comment: Interpretive Data Percent cell count reference ranges are not reported, since discordance with absolute values may lead to misinterpretation of CBC data. Current Interpretive Data was last revised on 2017. Basophil pct 0.2 % [facility] Comment: Interpretive Data Percent cell count reference ranges are not reported, since discordance with absolute values may lead to misinterpretation of CBC data. Current Interpretive Data was last revised on 2017. Blood 12/29/2023 8:07 PM CDT 12/29/2023 8:22 PM CDT Belkys Montanez PEDIATRIC SPEECH LANGUAGE PATHOLOGIST LAB BLOOD ORDERABLES Blessing alicea Result [facility] Department [place] [address] * (ABNORMAL) Basic metabolic panel (12/29/2023 8:07 PM CDT) Sodium 146(H) 135 - 145 mmol/L Potassium, pl 4.7 3.3 - 4.9 mmol/L [facility] Chloride 107 97 - 110 mmol/L [facility] CO2 27 22 - 32 mmol/L [facility] Anion gap 12 2 - 15 mmol/L [facility] BUN 60(H) 6 - 25 mg/dL [facility] Creatinine 5.09(H) 0.60 - 1.10 mg/dL [facility] Glucose 201(H) 70 - 199 mg/dL [facility] Comment: Interpretive Data Fasting glucose >/= 126 [...] Current interpretive data was last revised 2022. Calcium 9.6 8.5 - 10.3 mg/dL [facility] Blood 12/29/2023 8:07 PM CDT 12/29/2023 8:22 PM CDT Belkys Montanez NP LAB BLOOD ORDERABLES Blessing alicea Result [facility] Department [place] [address] * (ABNORMAL) CBC with auto differential (12/29/2023 8:07 PM CDT) WBC 13.4(H) 3.8 - 9.9 K/cumm Hgb 8.8(L) 11.9 - 15.5 g/dL [facility] Hct 28.1(L) 35.6 - 45.5 % [facility] Plt 326 150 - 400 K/cumm [facility] MPV 10.2 9.1 - 12.3 fL [facility] RBC 2.89(L) 3.90 - 5.20 M/cumm [facility] MCV 97.2(H) 81.3 - 96.4 fL [facility] MCH 30.4 27.1 - 33.3 pg [facility] MCHC 31.3(L) 32.3 - 35.7 g/dL [facility] RDW CV 15.4(H) 11.1 - 14.9 % [facility] RDW SD 53.9(H) 35.7 - 48.1 fL [facility] NRBC abs 0.00 0.00 - 0.01 K/cumm [facility] Blood 12/29/2023 8:07 PM CDT 12/29/2023 8:22 PM CDT Belkys Montanez PEDIATRIC SPEECH LANGUAGE PATHOLOGIST LAB BLOOD ORDERABLES Blessing l Result Performing Organization Address City/[facility] Co de Phone Number [facility] [place] [address] * (ABNORMAL) POCT glucose (12/29/2023 7:21 PM CDT) Glucose, POC 202(H) 70 - 199 mg/dL Blood 12/29/2023 7:21 PM CDT 12/29/2023 7:21 PM CDT Notinfile Unknown LAB POCT ORDERABLES - DEVICE F inal Result Performing Organization Address [facility] Co de Phone Number [facility] [place] [address] * POCT glucose (12/29/2023 3:11 PM CDT) Glucose, POC 182 70 - 199 mg/dL Blood 12/29/2023 3:11 PM CDT 12/29/2023 3:11 PM CDT Notinfile Unknown LAB POCT ORDERABLES - DEVICE F inal Result Performing Organization Address [facility] Co de Phone Number [facility] [place] [address] * POCT ketone, blood (12/29/2023 3:10 PM CDT) Ketones, Blood, POC 0.1 0.0 - 0.5 mmol/L Blood 12/29/2023 3:10 PM CDT 12/29/2023 3:10 PM CDT us Notinfile Unknown LAB POCT ORDERABLES - DEVICE F inal Result NILSA OKEEFE [facility] Department [place] [address] documented in this encounter Visit Diagnoses Diagnosis Chronic shoulder pain, unspecified laterality- Primary ESRD (end stage renal disease) (CMS/HCC) (HCC) End stage renal disease Anemia, unspecified type Gastritis without bleeding, unspecified chronicity, unspecified gastritis type documented in this encounter Administered Medications Inactive Administered Medications - up to 3 most recent administrations Medication Order MAR Action Action Date Dose Rate Site acetaminophen (TYLENOL) tablet 1,000 mg 1,000 mg, oral, Once, On Thu12/29/23 at 2204, For 1 dose Given 12/29/2023 10:07 PM CDT 1,000 mg acetaminophen (TYLENOL) tablet 1,000 mg 1,000 mg, oral, Once, On Thu12/30/23 at 0503, For 1 dose Given 12/30/2023 5:11 AM CDT 1,000 mg carvediloL (COREG) tablet 3.125 mg 3.125 mg, oral, Once, On Thu12/29/23 at 2044, For 1 dose Given 12/29/2023 8:58 PM CDT 3.125 mg cephalexin (KEFLEX) capsule 250 mg 250 mg, oral, Daily, First dose on Thu12/30/23 at 0900, Indications: Urinary Tract/Genitourinary InfectionIndications:U rinary Tract/Genitourinary Infection Given 12/30/2023 1:10 PM CDT 250 mg fentaNYL (SUBLIMAZE) preservative free injection 25 mcg 25 mcg, intravenous, Once, On Thu12/29/23 at 2305, For 1 dose Given 12/29/2023 11:11 PM CDT 25 mcg fentaNYL (SUBLIMAZE) preservative free injection 25 mcg 25 mcg, intravenous, Once, On Thu12/30/23 at 0508, For 1 dose Given 12/30/2023 5:12 AM CDT 25 mcg hydrALAZINE (APRESOLINE) tablet 25 mg 25 mg, oral, Once, On Thu12/29/23 at 2044, For 1 dose, Indications: hypertensionIndication s:hypertension Given 12/29/2023 8:58 PM CDT 25 mg ketorolac (TORADOL) 30 mg/mL injection 15 mg 15 mg, intravenous, Once, On Thu12/30/23 at 0920, For 1 dose, For Adult IV push, administer over 15 seconds Given 12/30/2023 1:05 PM CDT 15 mg lidocaine (ASPERCREME) 4 % patch 1 patch 1 patch, transdermal, Administer over 12 Hours, Every 24 hours, First dose on Thu12/29/23 at 1523, Apply to affected area: shoulder, Laterality: Left Medication Applied 12/30/2023 1:08 PM CDT 1 patch Left Shoulder Medication Applied 12/29/2023 3:29 PM CDT 1 patch Left Shoulder NIFEdipine (PROCARDIA XL/ADALAT CC) extended release tablet 60 mg 60 mg, oral, Daily, First dose on Thu12/30/23 at 0534, Do not crush, chew, cut, dissolve, open or otherwise manipulate tablet/capsule. Given 12/30/2023 1:10 PM CDT 60 mg documented in this encounter Active and Recently Administered Medications Times are shown in CDT. Scheduled Medication Order 12/28/2023 12/29/2023 12/30/2023 acetaminophen (TYLENOL) tablet 1,000 mg (COMPLETED) 1,000 mg, oral, Once, On Thu12/29/23 at 2204, For 1 dose 220 (Given - Provider: Kiley Rowley RN) acetaminophen (TYLENOL) tablet 1,000 mg (COMPLETED) 1,000 mg, oral, Once, On Thu12/30/23 at 0503, For 1 dose 0511 (Given - Provid er: Kiley Rowley RN) carvediloL (COREG) tablet 3.125 mg (COMPLETED) 3.125 mg, oral, Once, On Thu12/29/23 at 2044, For 1 dose 2057 (Given - Provider: Kiley Rowley RN) cephalexin (KEFLEX) capsule 250 mg 250 mg, oral, Daily, First dose on Thu12/30/23 at 0900, Indications: Urinary Tract/Genitourinary Infection 1310 (Given - Provid er: Brigid Moralez RN) fentaNYL (SUBLIMAZE) preservative free injection 25 mcg (COMPLETED) 25 mcg, intravenous, Once, On Thu12/29/23 at 2305, For 1 dose 2311 (Given - Provider: Kiley Rowley, ALIREZA) fentaNYL (SUBLIMAZE) preservative free injection 25 mcg (COMPLETED) 25 mcg, intravenous, Once, On Thu12/30/23 at 0508, For 1 dose 0512 (Given - Provid er: Kiley Rowley, ALIREZA) hydrALAZINE (APRESOLINE) tablet 25 mg (COMPLETED) 25 mg, oral, Once, On Thu12/29/23 at 2044, For 1 dose, Indications: hypertension 2057 (Given - Provider: Kiley Rowley, ALIREZA) ketorolac (TORADOL) 30 mg/mL injection 15 mg (COMPLETED) 15 mg, intravenous, Once, On Thu12/30/23 at 0920, For 1 dose, For Adult IV push, administer over 15 seconds 1305 (Given - Provid er: Brigid Moralez RN) lidocaine (ASPERCREME) 4 % patch 1 patch 1 patch, transdermal, Administer over 12 Hours, Every 24 hours, First dose on Thu12/29/23 at 1523, Apply to affected area: shoulder, Laterality: Left 1529 (Medication Applied - Provider: Nona Moreno RN) 0351 (Medication Removed - Provider: Kiley Rowley, ALIREZA)1308 (Medication Applied - Provider: Brigid Moralez RN)1522 (Due: Medication Removed - Provider: Brigid Moralez RN)1523 (Due) NIFEdipine (PROCARDIA XL/ADALAT CC) extended release tablet 60 mg 60 mg, oral, Daily, First dose on Thu12/30/23 at 0534, Do not crush, chew, cut, dissolve, open or otherwise manipulate tablet/capsule. 1310 (Given - Provid er: Brigid Moralez RN) documented in this encounter Orders Medications Ordered That Flip ht Not Have Been Administered Count Last Ordered Date First Ordered Date heparin 1,000 unit/mL injection 1.5-6.9 mL 1 12/30/2023 heparin 1,000 unit/mL injection 500 Units 1 12/30/2023 sodium chloride 0.9% bolus 200 mL 2 024 Lab Orders Without Results Count Last Ordered D ate First Ordered Date POCT GLUCOSE DEVICE 7 12/30/2023 12/29/19 24 POCT KETONE, BLOOD 1 12/29/2023 Nursing Count Last Ordered Date First Orde red Date MISCELLANEOUS NURSING CARE ORDER (SPECIFY) 1 12/29/2023 Consult Count Last Ordered Date First Orde red Date IP CONSULT TO NEPHROLOGY 1 12/29/2023 Dialysis Count Last Ordered Date First Orde red Date HEMODIALYSIS/DUF 1 12/30/2023 documented in this encounter Care Teams Retail Service Representative Relationship Specialty Start Date End Date Cherelle Corcoran MD PCP - General Family Medicine 08/30/19 Mark Queen MD Consulting Physician Infectious Diseases 01/10/20 Rudolph Welch MD [address] [facility] [facility] [address] [place] [address] Consulting Physician Infectious Diseases 12/05/22 Markie Ryan MD [address] [facility] [facility] [address] [address] [place] [address] Consulting Physician Nephrology 12/05/22 Dulce Vega, ALIREZA [address] [place] [address] [address] [place] [address] Executive Director 10/07/23 05/03/24 [place] [address] [place] [address] Consulting Physician Nephrology 10/22/23 documented as of this encounter
--- OUTSIDE RECORDS SUMMARY | 2024-07-04 04:04 | XMS_ITS | Encounter Summary ---
Author Organization [facility] Healthcare Address [address] [place] [address] Care Team Providers Care Pharmacy Manager Name Role Phone Cherelle Corcoran MD Primary Care Pro vider Mark Queen MD Unavailable + [phone] Rudolph Welch MD Unavailable [phone] Markie Ryan MD Unavailable [phone] Dulce Vega RN Unavailable [phone] Jimbo Strauss MD Unavailable [phone] Reason for Referral * Consultation (Routine) - Closed Specialty Diagnoses / Procedures Referred By Contac t Referred To Contact Pain Management Diagnoses Acute shoulder pain, unspecified laterality Cherelle Corcoran MD [facility] [address] [address] Phone: tel: fax: [facility] [place] [address] [place] [address] [place] [address] Phone: tel: fax: Referral ID Status Reason Start Date Expiration Date V isits Requested Visits Authorized [id number] Closed Specialty Services Required 12/30/2023 01/28/2025 1 1 Question Answer Please select the performing region: External Order [171] # of visits: 1 Comments [facility] Encounter Details Date Type Department Care Team (Late st Contact Info) Description 12/29/2023 Patient Message [facility] Primary Care at [place] [address] [facility] [address] [place] [address] Cherelle Corcoran MD [address] [facility] [address] [place] [address] Rotator Cuff Pain Social History Tobacco Use Types Packs/Day Years [...] materials from doctor or pharmacy Never 12/28/2023 [facility] Utilities Answer Date Recorded In the past [...] any clubs o r organizations such as jew groups, unions, fraternal or athletic groups, or [...] any time in the past 12 m [facility], were you homeless or living in a intermediate (including now)? No 12/21/2023 Personal Safety Answer Date Recorded Have you ever been in or are you currently in a harmful physical or emotional relationship or is someone making you feel afraid or unsafe? Denies 12/03/2023 Comments No Sex and Gender Information Value Date Recorded Sex Assigned at Not on file Legal Sex Female 9:03 AM PIPE BUFFER Gender Identity Female 02/08/2020 6:39 PM CDT Sexual Orientation Not on file documented as of this encounter Ordered Prescriptions Prescription Sig Dispense Quantity Refills Last Filled Start Date End Date traMADoL (ULTRAM) 25 mg tablet Take 1 tablet (25 mg total) by mouth every 8 (eight) hours as needed for pain for up to 7 days 20 tablet 12/30/2023 01/11/2024 documented in this encounter Plan of Treatment Upcoming Encounters Date Type Department Care Team (Latest Contact Info) Description 07/13/2024 9:00 AM PIPE BUFFER Hospital Encounter [facility] [address] [place] [address] Jaya Grier MD [facility] [facility] [address] [place] [address] 07/13/2024 9:00 AM PIPE BUFFER - 07/13/2024 9:30 AM PIPE BUFFER Surgery [facility] [address] [place] [address] Jaya Grier MD [facility] [address] [place] [address] ESOPHAGOGASTRODUODENOSCOPY Scheduled Procedures Name Priority Associated Diagnoses Date/Ti mn ESOPHAGOGASTRODUODENOSCOPY Anemia, unspecified type Gastritis without bleeding, unspecified chronicity, unspecified gastritis type 07/13/2024 9:00 AM PIPE BUFFER COLONOSCOPY Iron deficiency anemia due to chronic blood loss Scheduled Referrals Name Type Priority Associated Diagnoses Orde r Schedule Ambulatory referral to Pain Management Outpatient Referral Routine Acute shoulder pain, unspecified laterality Expected: 01/13/2024 (Approximate), Expires: 12/29/2024 documented as of this encounter Visit Diagnoses Diagnosis Acute shoulder pain, unspecified laterality- Primary Anemia, unspecified type Gastritis without bleeding, unspecified chronicity, unspecified gastritis type documented in this encounter Care Teams Pharmacy Manager Relationship Specialty Start Date End Date Cherelle Corcoran MD PCP - General Family Medicine 08/30/19 Mark Queen MD Consulting Physician Infectious Diseases 01/10/20 Rudolph Welch MD [address] [facility] [address] [place] [address] Consulting Physician Infectious Diseases 12/05/22 Markie Ryan MD [address] [facility] [address] [place] [address] Consulting Physician Nephrology 12/05/22 Dulce Vega, ALIREZA [address] [place] [address] [address] [place] [address] Stock Shaper 10/07/23 05/03/24 [place] [address] [facility] [address] [place] [address] Consulting Physician Nephrology 10/22/23 documented as of this encounter
--- OUTSIDE RECORDS SUMMARY | 2024-07-04 04:04 | XMS_ITS | Encounter Summary ---
Author Organization [facility] Healthcare Address [address] [place] [address] Care Team Providers Care Technical Sales Advisor Name Role Phone Cherelle Corcoran MD Primary Care Pro vider Mark Queen MD Unavailable + [phone] Rudolph Welch MD Unavailable [phone] Markie Ryan MD Unavailable [phone] Dulce Vega RN Unavailable [phone] Jimbo Strauss MD Unavailable [phone] Reason for Visit * Reason Onset Date Comments Left Shoulder Pain 12/28/2023 Encounter Details Date Type Department Care Team ([facility] st Contact Info) Description 12/28/2023 Telephone [facility] Primary Care at [address] [address] Cherelle Crocoran MD [address] [place] [phone] Left Shoulder Pain Social History Tobacco Use Types Packs/Day [...] materials from doctor or pharmacy Often 01/20/2024 [facility] Utilities Answer Date Recorded In the past [...] often do you attend chur ch or presybeterian services? More than 4 times per year 12/21/2023 Do you belong to any clubs o r organizations such as cheondoism groups, unions, fraternal or athletic groups, or [...] living in a penitentiary (including now)? No 12/21/2023 Personal Safety Answer Date Recorded Have you ever been in or are you currently in a harmful physical or emotional relationship or is someone making you feel afraid or unsafe? 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 AM SENIOR ASSOCIATE Gender Identity Female 02/08/2020 6:39 PM CDT Sexual Orientation Not on file documented as of this encounter Miscellaneous Notes * Telephone Encounter - Cherelle Corcoran MD - 12/30/2023 1:53 PM CDT Medication Sent to pharmacy. Dr. Nilo Hawkins * Telephone Encounter - Wilner Peterson RN - 12/28/2023 9:53 AM CDT Images from the original note were not included. Good morning, My name is Wilner Peterson RN CM and I am a Nurse Rug Hooker Hand with the [facility]'s ([facility]) Accountable Care Organization (ACO). This pt DC'd from [facility] on 12/25 for Syncope. I was able to schedule a JOY, but pt's daughter reports her torn left rotator cuff is causing her significant pain, which is not adequately managed with Tylenol. She would like to know if you would be willing to prescribe something else to help with the pain as she is starting PT? Please advise. Thank you, Wilner Peterson RN Nurse Rug Hooker Hand [facility] Accountable Care Organization (ACO) Email: [email or web address] documented in this encounter Plan of Treatment Upcoming Encounters Date Type Department Care Team (Latest Contact Info) Description 07/13/2024 9:00 AM SENIOR ASSOCIATE Hospital Encounter [facility] [address] [place] [address] Jaya Grier MD [address] [place] [address] [address] [place] [address] 07/13/2024 9:00 AM SENIOR ASSOCIATE - 07/13/2024 9:30 AM SENIOR ASSOCIATE Surgery [facility] [address] [place] [address] Jaya Grier MD [facility] [facility] [address] [place] [address] ESOPHAGOGASTRODUODENOSCOPY Scheduled Procedures Name Priority Associated Diagnoses Date/Ti me ESOPHAGOGASTRODUODENOSCOPY Anemia, unspecified type Gastritis without bleeding, unspecified chronicity, unspecified gastritis type 07/13/2024 9:00 AM SENIOR ASSOCIATE COLONOSCOPY Iron deficiency anemia due to chronic blood loss documented as of this encounter Visit Diagnoses Not on filedocumented in this encounter 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 06/26/2024 3:05 AM SENIOR ASSOCIATE documented as of this encounter Care Teams Technical Sales Advisor Relationship Specialty Start Date End Date Cherelle Corcoran MD PCP - General Family Medicine 08/30/19 Mark Queen MD Consulting Physician Infectious Diseases 01/10/20 Rudolph Welch MD [address] [facility] [address] [place] [address] Consulting Physician Infectious Diseases 12/05/22 Markie Ryan MD [address] [facility] [address] [place] [address] Consulting Physician Nephrology 12/05/22 Dulce Vega, ALIREZA [address] [place] [address] [address] [place] [address] Rug Hooker Hand 10/07/23 05/03/24 [place] [address] [facility] [address] [place] [address] Consulting Physician Nephrology 10/22/23 documented as of this encounter
--- OUTSIDE RECORDS SUMMARY | 2024-07-04 04:04 | XMS_ITS | Encounter Summary ---
Author Organization [facility] Healthcare Address [address] [place] [address] Care Team Providers Care Driver Service Technician Name Role Phone Cherelle Corcoran MD Primary Care Pro vider Mark Queen MD Unavailable + [phone] Rudolph Welch MD Unavailable Markie Ryan MD Unavailable Dulce Vega RN Unavailable [phone] Jimbo Strauss MD Unavailable [phone] Reason for Visit * Reason Comments Hospital Follow Up Encounter Details Date Type Department Care Team (Late st Contact Info) Description 01/01/2024 3:30 PM CDT Office Visit [facility] Medical Group Primary Care at [address] [address] Cherelle Corcoran MD [address] [place] [id number] History of syncope (Primary Dx); Arthropathy of left shoulder; Primary hypertension; Type 2 diabetes mellitus with diabetic neuropathy, with long-term current use of insulin (HCC); ESRD on dialysis (HCC) Social History Tobacco Use Types Packs/Day [...] materials from doctor or pharmacy Never 12/28/2023 [facility] Utilities Answer Date Recorded In the past 12 months has e bead Button, gas, oil, or water company threatened to [...] any time in the past 12 m [facility], were you homeless or living [...] on file Legal Sex Female 9:03 AM HEATING AND BLENDING SUPERVISOR Gender Identity Female 02/08/2020 6:39 PM CDT Sexual Orientation Not on file documented as of this encounter Last Filed Vital Signs Vital Sign Reading Time Taken Comments Blood Pressure 120/60 01/01/2024 3:40 PM CDT Pulse 94 01/01/2024 3:40 PM CDT Temperature 36.1 ??C (97 ??F) 01/01/2024 3:40 PM CDT Respiratory Rate 18 01/01/2024 3:40 PM CDT Oxygen Saturation 97% 01/01/2024 3:40 PM CDT Inhaled Oxygen Concentration - - Weight 54.4 kg (120 lb) 01/01/2024 3:40 PM CDT Height 154.9 cm (5' 1 ) 01/01/2024 3:40 PM CDT Body Mass Index 22.67 01/01/2024 3:40 PM CDT documented in this encounter Patient Instructions * Attachments The following attachments cannot be sent through Care Everywhere. * Hypoglycemia in a Person with Diabetes (Air Traffic Control Manager) (Khmer) documented in this encounter Progress Notes * Cherelle Corcoran MD - 01/01/2024 3:30 PM CDT Images from the original note [...] daily living is documented in the chart. I, Cherelle Corcoran MD have personally reviewed pertinent Hospital/ER data including [employer] and Care Everywhere if available. This patient's discharge medication list has been reviewed and reconciled with her medication list in the office chart and has also been reviewed with patient a nd/or caregiver. I have noted any changes. Admission Date: 12/19/23 Discharge Date: 12/26/23 Date of Initial Post-discharge Interactive Contact: 12/28/23 Complexity of Medical Decision Making: moderate Metabolic Lab Results: Body mass index is 22.67 kg/m??. Glucose: Glucose Date Value Ref Range Status 12/29/2023 201 (H) 70 - 199 mg/dL Final Comment: Interpretive [...] Current interpretive data was last revised 2022. Glucose, POC Date Value Ref Range Status 12/30/2023 138 70 - 199 mg/dL Final Lab Results Component Value Date WBC 13.4 (H) 12/29/2023 HGB 8.8 (L) 12/29/2023 HCT 28.1 (L) 12/29/2023 MCV 97.2 (H) 12/29/2023 Lab Results Component Value Date GLUCOSE 138 12/30/2023 CALCIUM 9.6 12/29/2023 SODIUM 146 (H) 12/29/2023 POTASSIUM 4.7 12/29/2023 CO2 27 12/29/2023 CHLORIDE 107 12/29/2023 BUNSER 60 (H) 12/29/2023 CREATININE 5.09 (H) 12/29/2023 Major Procedures and Tests: Major Procedures and Tests Performed During Inpatient Stay: Studies Pending at Discharge (Includes Lab and Radiology) None Interval History: Admitted after syncopal episode at dialysis. EEG negative for global encephalopathy. Hypotensive with dailysis, moved medications to after treatments. Has home health. Seen in ED 12/28 after missed dialysis 2/2 shoulder pain, given fentanyl and toradol as well as nifedipine for elevated blood pressure. Has tramadol prescription, but unable to get from pharmacy. Next orthopedics appointment 02/04. Here with granddaughter today who doesn't know what medications she is currently taking. Diabetes mellitus: on 15 units lantus & humalog 4 units TIDAC +SSI, but has been having lows inthe 60's Problem Esrd On Dialysis (Formerly [facility]) Arthropathy of Left Shoulder Primary Hypertension Type 2 Diabetes Mellitus With Diabetic Neuropathy, With Long-Term Current Use of Insulin (Formerly [facility]) Current Outpatient Medications Medication Sig Dispense Refill acetaminophen 500 mg capsule Take 2 capsules (1,000 mg total) by mouth 3 (three) times a day as needed for mild pain (pain scale 1-4) aspirin 81 mg chewable tablet atorvastatin (LIPITOR) 40 mg tablet Take 1 tablet (40 mg total) by mouth nightly (Patient not taking: Reported on 01/05/2024) 30 tablet 11 benztropine (COGENTIN) 2 mg [...] tablet (10 mg total) by mouth daily ferrous sulfate 325 mg (65 mg of elemental iron) tablet Take 1 tablet (65 mg of elemental iron total) by mouth 2 (two) times a day flash glucose scanning reader [facility] Use Madhav 3 reader to scan Madhav 3 sensor 1 each 0 flash glucose sensor (FreeStyle Madhav 2 Sensor) kit Use to continually monitor glucose, change every 14 days 6 kit 3 fluticasone propionate (FLONASE) 50 mcg/actuation nasal spray Administer 2 sprays into each nostrildaily as needed for rhinitis FreeStyle Madhav 3 [place] Use Madhav 3 reader to scan Madhav 3 sensor hydrALAZINE (APRESOLINE) 25 mg tablet Take 1 tablet (25 mg total) by mouth 3 (three) times a day 90tablet 0 insulin glargine 100 unit/mL (3 mL) [...] daily as needed to lower back NIFEdipine (PROCARDIA XL/ADALAT CC) 60 mg 24 hr tablet Take 1 tablet (60 mg total) by mouth daily (Patient not taking: Reported on 01/05/2024) 30 tablet 0 pen needle, diabetic (Easy Touch) 32 gauge x /32 needle USE DIRECTED FOUR TIMES DAILY 100 [...] every 8 (eight) hours as neededfor pain for up to 7 days 20 tablet 0 No current facility-administered medications for this visit. Review of Systems: Review of Systems Respiratory: Negative for shortness of breath. Musculoskeletal: Positive for arthralgias. Neurological: Negative for dizziness, syncope (not since hospitalization) and light-headedness. Physical Exam: BP 120/60 (BP Location: Left arm, Patient Position: Sitting) Pulse 94 Temp 36.1 ??C (97 ??F) (Temporal) Resp 18 Ht 154.9 cm (5' 1 ) Wt 54.4 kg (120 lb) SpO2 97% BMI 22.67 kg/m?? Physical Exam Gen: NAD, comfortable, appears as stated age Eyes: no conjunctival injection, EOMI ENMT: external ears symmetric CV: RRR without murmur, rub, gallop. Pulm: good respiratory effort, CTAB no rhonchi, rales, or wheezes Skin: no rashes or nodules, warm and dry Ext: No lower extremity edema MSK/Neuro: symmetric limb movement, using wheelchair, TTP L shoulder Psych: alert and oriented to person/place Assessment/Plan Diagnoses and all orders for this visit: History of syncope (Primary) Comments: No recurrent symptoms since hospitalization Arthropathy of left shoulder Assessment & Plan: Uncontrolled despite injection Given short course of tramadol, discussed using edmundrx at pharmacy Will reach out to orthopedics, appointment not until Aug Has home physical therapy/OT set up Primary hypertension Assessment & Plan: BP currently well controlled Type 2 diabetes mellitus with diabetic neuropathy, with long-term current use of insulin (HCC) Assessment & Plan: Has been having hypoglycemia with recent decreased intake Given handout on how to manage hypoglycemia to patient/granddaughter Recommend cutting insulin in half if running low/not eating normally ESRD on dialysis (HCC) Assessment & Plan: Following with nephrology Coordination of Home care services and follow-up with specialist appointments confirmed. Instructions have been provided to and reviewed with the patient/managed care analyst prior to discharge. Cherelle Corcoran MD documented in this encounter Miscellaneous Notes * Assessment & Plan Note - Cherelle Corcoran MD - 01/05/2024 12:29 PM CDTAssociated Problem(s): ESRD on dialysis (HCC) Following with nephrology * Assessment & Plan Note - Cherelle Corcoran MD - 01/01/2024 4:53 PM CDTAssociated Problem(s): Arthropathy of left shoulder Uncontrolled despite injection Given short course of tramadol, discussed using goodrx at pharmacy Will reach out to orthopedics, appointment not until Aug Has home physical therapy/OT set up * Assessment & Plan Note - Cherelle Corcoran MD - 01/01/2024 4:52 PM CDTAssociated Problem(s): Type 2 diabetes mellitus with diabetic neuropathy, with long-term current use of insulin ([facility]) Has been having hypoglycemia with recent decreased intake Given handout on how to manage hypoglycemia to patient/granddaughter Recommend cutting insulin in half if running low/not eating normally * Assessment & Plan Note - Cherelle Corcoran MD - 01/01/2024 4:51 PM CDTAssociated Problem(s): Primary hypertension BP currently well controlled documented in this encounter Plan of Treatment Upcoming Encounters Date Type Department Care Team (Latest Contact Info) Description 07/13/2024 9:00 AM HEATING AND BLENDING SUPERVISOR Hospital Encounter [facility] GI Lab [address] [place] [address] Jaya Grier MD [address] [place] [address] [address] [place] [address] 07/13/2024 9:00 AM HEATING AND BLENDING SUPERVISOR - 07/13/2024 9:30 AM HEATING AND BLENDING SUPERVISOR Surgery [facility] GI Lab [address] [place] [address] Jaya Grier MD [address] [place] [address] [address] [place] [address] ESOPHAGOGASTRODUODENOSCOPY Scheduled Procedures Name Priority Associated Diagnoses Date/Ti de ESOPHAGOGASTRODUODENOSCOPY Anemia, unspecified type Gastritis without bleeding, unspecified chronicity, unspecified gastritis type 07/13/2024 9:00 AM HEATING AND BLENDING SUPERVISOR COLONOSCOPY Iron deficiency anemia due to chronic blood loss documented as of this encounter Visit Diagnoses Diagnosis History of syncope- Primary Arthropathy of left shoulder Primary hypertension Unspecified essential hypertension Type 2 diabetes mellitus with diabetic neuropathy, with long-term current use of insulin (HCC) ESRD on dialysis (HCC) End stage renal disease Anemia, unspecified type Gastritis without bleeding, unspecified chronicity, unspecified gastritis type documented in this encounter Discontinued Medications Medication Sig Discontinue Reason Start Date End Da te aspirin 81 mg enteric coated tablet Take 1 tablet (81 mg total) by mouth daily 11/03/2023 01/01/2024 documented as of this encounter Historical Medications * This list may reflect changes made after this encounter. 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 06/26/2024 3:05 AM HEATING AND BLENDING SUPERVISOR documented as of this encounter Care Teams Driver Service Technician Relationship Specialty Start Date End Date Cherelle Corcoran MD PCP - General Family Medicine 08/30/19 Mark Queen MD Consulting Physician Infectious Diseases 01/10/20 Rudolph Welch MD [address] [facility] [address] [address] [place] [address] Consulting Physician Infectious Diseases 12/05/22 Markie Ryan MD [address] [facility] [place] [address] Consulting Physician Nephrology 12/05/22 Dulce Vega RN [address] [place] [address] [address] [place] [address] Forms Analyst 10/07/23 05/03/24 [place] [address] [place] [address] Consulting Physician Nephrology 10/22/23 documented as of this encounter
--- OUTSIDE RECORDS SUMMARY | 2024-07-04 04:04 | XMS_ITS | Encounter Summary ---
Author Organization [facility] Home Care Servic es Address [address] [place] [address] Phone Care Team Providers Care Induction Heating Equipment Setter Name Role Phone Cherelle Corcoran MD Primary Care Pro vider aMrk Queen MD Unavailable [phone] Rudolph Welch MD Unavailable [phone] Markie Ryan MD Unavailable [phone] Dulce eVga RN Unavailable [phone] Jimbo Strauss MD Unavailable [phone] Encounter Details Date Type Department Care Team (Late st Contact Info) Description 12/27/2023 Telephone [facility] Home Care Services [address] [place] [address] Alla Sommers RN Social History Tobacco Use Types Packs/Day Years [...] materials from doctor or pharmacy Never 12/28/2023 [facility] Utilities Answer Date Recorded In the [...] living in a correction (including now)? No 12/21/2023 Personal Safety Answer Date Recorded Have you ever been in or are you currently in a harmful physical or emotional relationship or is someone making you feel afraid or unsafe? Denies 12/03/2023 Comments No Sex and Gender Information Value Date Recorded Sex Assigned at Not on file Legal Sex Female 9:03 AM ELECTROPHYSIOLOGIST Gender Identity Female 02/08/2020 6:39 PM CDT Sexual Orientation Not on file documented as of this encounter Miscellaneous Notes * Telephone Encounter - Alla Sommers RN - 12/27/2023 1:49 PM CDT Called to complete prescreening interview and reached . Message left requesting return call. Alla Sommers INTERLOCKING TOWER OPERATOR MS ACM-RN documented in this encounter Plan of Treatment Upcoming Encounters Date Type Department Care Team (Latest Contact Info) Description 07/13/2024 9:00 AM ELECTROPHYSIOLOGIST Hospital Encounter [facility] GI Lab [address] [place] [address] Jaya Grier MD [address] [facility] [address] [place] [address] 07/13/2024 9:00 AM ELECTROPHYSIOLOGIST - 07/13/2024 9:30 AM ELECTROPHYSIOLOGIST Surgery [facility] GI Lab [address] [place] [address] Jaya Grier MD [address] [facility] [address] [place] [address] ESOPHAGOGASTRODUODENOSCOPY Scheduled Procedures Name Priority Associated Diagnoses Date/Ti me ESOPHAGOGASTRODUODENOSCOPY Anemia, unspecified type Gastritis without bleeding, unspecified chronicity, unspecified gastritis type 07/13/2024 9:00 AM ELECTROPHYSIOLOGIST COLONOSCOPY Iron deficiency anemia due to chronic blood loss documented as of this encounter Visit Diagnoses Not on filedocumented in this encounter Care Teams Induction Heating Equipment Setter Relationship Specialty Start Date End Date Cherelle Corcoran MD PCP - General Family Medicine 08/30/19 Mark Queen MD Consulting Physician Infectious Diseases 01/10/20 Rudolph Welch MD [address] [facility] [address] [place] [address] Consulting Physician Infectious Diseases 12/05/22 Markie Ryan MD [address] [facility] [address] [place] [address] Consulting Physician Nephrology 12/05/22 Dulce Vega RN [address] [place] [address] [address] [place] [address] Sap Business Analyst 10/07/23 05/03/24 [place] [address] [place] [address] Consulting Physician Nephrology 10/22/23 documented as of this encounter
--- OUTSIDE RECORDS SUMMARY | 2024-07-04 04:04 | XMS_ITS | Encounter Summary ---
Author Organization [facility] Home Care Servic es Address [address] [place] [address] Phone Care Team Providers Care Foreign Food Specialty Cook Name Role Phone Cherelle Corcoran MD Primary Care Pro vider Mark Queen MD Unavailable [phone] Rudolph Welch MD Unavailable Markie Ryan MD Unavailable [phone] Dulce Vega RN Unavailable [phone] Jimbo Strauss MD Unavailable [phone] Encounter Details Date Type Department Care Team (Late st Contact Info) Description 12/27/2023 Telephone [facility] Home Care Services [address] [place] [address] Alla Sommers RN Social History [...] materials from doctor or pharmacy Never 12/28/2023 [facility] Utilities Answer Date Recorded [...] often do you attend chur ch or spiritism services? More than 4 times per year 12/21/2023 Do you belong to any clubs o r organizations such as muslim groups, unions, fraternal or athletic groups, or [...] on file Legal Sex Female 9:03 AM MOTORS AND CONTROLS TESTER Gender Identity Female 02/08/2020 6:39 PM CDT Sexual Orientation Not on file documented as of this encounter Miscellaneous Notes * Telephone Encounter - Alla Sommers RN - 12/27/2023 10:00 AM CDT Called to complete prescreening interview and reached . Message left requesting return call. Alla Sommers SEWING MACHINE OPERATOR ZIPPER MS ACM-RN documented in this encounter Plan of Treatment Upcoming Encounters Date Type Department Care Team (Latest Contact Info) Description 07/13/2024 9:00 AM MOTORS AND CONTROLS TESTER Hospital Encounter [facility] GI Lab [address] [place] [address] Jaya Grier MD [address] [facility] [address] [place] [address] 07/13/2024 9:00 AM MOTORS AND CONTROLS TESTER - 07/13/2024 9:30 AM MOTORS AND CONTROLS TESTER Surgery [facility] GI Lab [address] [place] [address] Jaya Grier MD [address] [facility] [address] [place] [address] ESOPHAGOGASTRODUODENOSCOPY Scheduled Procedures Name Priority Associated Diagnoses Date/Ti me ESOPHAGOGASTRODUODENOSCOPY Anemia, unspecified type Gastritis without bleeding, unspecified chronicity, unspecified gastritis type 07/13/2024 9:00 AM MOTORS AND CONTROLS TESTER COLONOSCOPY Iron deficiency anemia due to chronic blood loss documented as of this encounter Visit Diagnoses Not on filedocumented in this encounter Care Teams Foreign Food Specialty Cook Relationship Specialty Start Date End Date Cherelle Corcoran MD PCP - General Family Medicine 08/30/19 Mark Queen MD Consulting Physician Infectious Diseases 01/10/20 Rudolph Welch MD [address] [facility] [address] [place] [address] Consulting Physician Infectious Diseases 12/05/22 Markie Ryan MD [address] [facility] [address] [place] [address] Consulting Physician Nephrology 12/05/22 Dulce Vega RN [address] [place] [address] [address] [place] [address] Sexer 10/07/23 05/03/24 [place] [address] [place] [address] Consulting Physician Nephrology 10/22/23 documented as of this encounter
--- OUTSIDE RECORDS SUMMARY | 2024-07-04 04:04 | XMS_ITS | Encounter Summary ---
Author Organization [facility] Healthcare Address [address] [place] [address] Care Team Providers Care Safety Risk Lead Name Role Phone Cherelle Corcoran MD Primary Care Pro vider Mark Queen MD Unavailable [phone] Rudolph Welch MD Unavailable [phone] Markie Ryan MD Unavailable [phone] Dulce Vega RN Unavailable [phone] Jimbo Strauss MD Unavailable [phone] Reason for Referral * MRI/CAT/PET Scan (Routine) - Closed Specialty Diagnoses / Procedures Referred By Contac t Referred To Contact Radiology Diagnoses Arthropathy of left shoulder Procedures MRI Shoulder Left WO Contrast Perico Raphael PA [address] [address] Phone: tel: fax: [address] [address] Referral ID Status Reason Start Date Expiration Date Visits Re quested Visits Authorized [id number] Closed 01/05/2024 02/03/2025 1 1 Encounter Details Date Type Department Care Team (Late st Contact Info) Description 01/05/2024 Orders Only [facility] Medical Group Orthopedics and Sports Medicine [address] [facility] [address] [place] [address] Perico Raphael PA [facility] [facility] [place] [address] Arthropathy of left shoulder (Primary Dx) Social History Tobacco Use Types [...] materials from doctor or pharmacy Never 12/28/2023 [facility] Utilities Answer Date Recorded [...] often do you attend chur ch or hinduism services? More than 4 times per year [...] in the past 12 m [facility], were you homeless or living in a snf (including now)? No 12/21/2023 Personal Safety Answer Date Recorded Have you ever been in or are you currently in a harmful physical or emotional relationship or is someone making you feel afraid or unsafe? 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 AM PLANT AND MACHINERY VALUER Gender Identity Female 02/08/2020 6:39 PM CDT Sexual Orientation Not on file documented as of this encounter Progress Notes * David Rivera MA - 01/05/2024 2:34 PM CDT MRI ORDER documented in this encounter Plan of Treatment Upcoming Encounters Date Type Department Care Team (Latest Contact Info) Description 07/13/2024 9:00 AM PLANT AND MACHINERY VALUER Hospital Encounter [facility] GI Lab [address] [place] [address] Jaya Grier MD [facility] [facility] [address] [place] [address] 07/13/2024 9:00 AM PLANT AND MACHINERY VALUER - 07/13/2024 9:30 AM PLANT AND MACHINERY VALUER Surgery [facility] GI Lab [address] [place] [address] Jaya Grier MD [facility] [facility] [address] [place] [address] ESOPHAGOGASTRODUODENOSCOPY Scheduled Procedures Name Priority Associated Diagnoses Date/Ti me ESOPHAGOGASTRODUODENOSCOPY Anemia, unspecified type Gastritis without bleeding, unspecified chronicity, unspecified gastritis type 07/13/2024 9:00 AM PLANT AND MACHINERY VALUER COLONOSCOPY Iron deficiency anemia due to chronic blood loss documented as of this encounter Results * MRI Shoulder Left [...] D: ??01/29/2024 7:57 PM T: Report ID: [id number] Reading Location: ??[id number] Procedure Note Loc Jon MD - 01/29/2024 [...] Loc Jon M.D. 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 06/26/2024 3:05 AM PLANT AND MACHINERY VALUER documented as of this encounter Care Teams Safety Risk Lead Relationship Specialty Start Date End Date Cherelle Corcoran MD PCP - General Family Medicine 08/30/19 Mark Queen MD Consulting Physician Infectious Diseases 01/10/20 Rudolph Welch MD [address] [facility] [address] [place] [address] Consulting Physician Infectious Diseases 12/05/22 Markie Ryan MD [address] [facility] [address] [place] [address] Consulting Physician Nephrology 12/05/22 Dulce Vega, RN [address] [place] [address] [address] [place] [address] Supervisor Safety Deposit 10/07/23 05/03/24 [place] [address] [place] [address] Consulting Physician Nephrology 10/22/23 documented as of this encounter
--- OUTSIDE RECORDS SUMMARY | 2024-07-04 04:04 | XMS_ITS | Encounter Summary ---
Author Organization [facility] Address [address] [place] [address] Care Team Providers Care Director Of Content Marketing Name Role Phone Cherelle Corcoran MD Primary Care Pro vider Mark Queen MD Unavailable [phone] Rudolph Welch MD Unavailable [phone] Markie Ryan MD Unavailable Dulce Vega RN Unavailable Jimbo Strauss MD Unavailable [phone] Reason for Visit * Reason Onset Date Comments MRI 01/04/2024 Encounter Details Date Type Department Care Team (Late st Contact Info) Description 01/04/2024 Telephone [facility] Orthopedics and Sports Medicine [address] [place] [address] [address] [place] [address] Perico Raphael PA [address] [place] [id number] MRI Social History Tobacco Use Types Packs/Day Years [...] materials from doctor or pharmacy Never 12/28/2023 [facility] Utilities Answer Date Recorded In the past 12 months has e [employer], [email or web address], oil, or water [employer] threatened to shut off services in your [...] any clubs o r organizations such as temple groups, unions, fraternal or athletic groups, or [...] time in the past 12 m cox [place], were you homeless or living in a [...] on file Legal Sex Female 9:03 AM BUSINESS COMMUNICATIONS INSTRUCTOR Gender Identity Female 02/08/2020 6:39 PM CDT Sexual Orientation Not on file documented as of this encounter Miscellaneous Notes * Telephone Encounter - David Rivera MA - 01/05/2024 2:37 PM CDT LET ARELI KNOW MRI IS ORDERED AND SCHEDULING WILL CALL HER TO GET IT SCHEDULED. * Telephone Encounter - Barb Freeman - 01/05/2024 1:04 PM CDT Areli calling again about ordering MRI. Please return her call. * Telephone Encounter - Barb Pearson - 01/04/2024 3:48 PM CDT [facility] PT would like an MRI for the LT shoulder. Physical therapy thinks PT has a tear and needs an MRI. They also think PT should wear a sling. documented in this encounter Plan of Treatment Upcoming Encounters Date Type Department Care Team (Latest Contact Info) Description 07/13/2024 9:00 AM BUSINESS COMMUNICATIONS INSTRUCTOR Hospital Encounter [facility] [address] [place] [address] Jaya Grier MD [address] [place] [address] [address] [place] [address] 07/13/2024 9:00 AM BUSINESS COMMUNICATIONS INSTRUCTOR - 07/13/2024 9:30 AM BUSINESS COMMUNICATIONS INSTRUCTOR Surgery [facility] [address] [place] [address] Jaya Grier MD [facility] [facility] [address] [place] [address] ESOPHAGOGASTRODUODENOSCOPY Scheduled Procedures Name Priority Associated Diagnoses Date/Ti me ESOPHAGOGASTRODUODENOSCOPY Anemia, unspecified type Gastritis without bleeding, unspecified chronicity, unspecified gastritis type 07/13/2024 9:00 AM BUSINESS COMMUNICATIONS INSTRUCTOR COLONOSCOPY Iron deficiency anemia due to chronic blood loss documented as of this encounter Visit Diagnoses Not on filedocumented in this encounter 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 06/26/2024 3:05 AM BUSINESS COMMUNICATIONS INSTRUCTOR documented as of this encounter Care Teams Director Of Content Marketing Relationship Specialty Start Date End Date Cherelle Corcoran MD PCP - General Family Medicine 08/30/19 Mark Queen MD Consulting Physician Infectious Diseases 01/10/20 Rudolph Welch MD [address] [facility] [address] [place] [address] Consulting Physician Infectious Diseases 12/05/22 Markie Ryan MD [address] [facility] [address] [place] [address] Consulting Physician Nephrology 12/05/22 Dulce Vega, ALIREZA [address] [place] [address] [address] [place] [address] Arc Cutter 10/07/23 05/03/24 [place] [address] [place] [address] Consulting Physician Nephrology 10/22/23 documented as of this encounter
--- OUTSIDE RECORDS SUMMARY | 2024-07-04 04:04 | XMS_ITS | Encounter Summary ---
Author Organization [facility] Address [address] [place] [address] Care Team Providers Care Outpatient Phlebotomist Name Role Phone Cherelle Corcoran MD Primary Care Pro vider Mark Queen MD Unavailable [phone] Rudolph Welch MD Unavailable [phone] Markie Ryan MD Unavailable [phone] Dulce Vega RN Unavailable Jimbo Strauss MD Unavailable [phone] Reason for Visit * Auth/Cert (Routine) Specialty Diagnoses / Procedures Referred By Contac t Referred To Contact Referral ID Status Reason Start Date Expiration Date Visits Re quested Visits Authorized [id number] 1 1 Encounter Details Date Type Department Care Team (Latest Contact Info) Description 01/05/2024 10:30 AM CDT Home Care Visit [facility] [address] [place] [address] Katie De La Fuente, OT OT INITIAL EVALUATION Social History Tobacco Use Types [...] Never 12/28/2023 [facility] Utilities Answer Date Recorded In the past 12 months has e [employer], [employer], oil, or water [employer] threatened to shut off services in your [...] often do you attend chur ch or hindu services? More than 4 times per year [...] in a care home (including now)? No 12/21/2023 Personal Safety Answer Date Recorded Have you ever been in or are you currently in a harmful physical or emotional relationship or is someone making you feel afraid or unsafe? 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 AM BENEFITS ADVISOR Gender Identity Female 02/08/2020 6:39 PM CDT Sexual Orientation Not on file documented as of this encounter Last Filed Vital Signs Vital Sign Reading Time Taken Comments Blood Pressure - - Pulse 93 01/05/2024 10:40 AM CDT Temperature 36.3 ??C (97.3 ??F) 01/05/2024 10:40 AM C DT Respiratory Rate 18 01/05/2024 10:40 AM CDT Oxygen Saturation 98% 01/05/2024 10:40 AM CDT Inhaled Oxygen Concentration - - Weight - - Height - - Body Mass Index - - documented in this encounter Miscellaneous Notes * Case Communication - Katie De La Fuente OT - 01/05/2024 11:50 AM CDTPt c/o severe pain in her left shoulder during the OT evaluation this morning and I spoke with her daughter, Areli, during the visit via phone call. She was on her way home to picked edge sewing machine operator patient and take her to the ER. She got a call from doctors office that patient has a UTI and needs to go straight in to the ER. OT assisted pt with dressing and taking meds laid out on the table. Granddaughter present for the visit. * Home Health Visit Narrative - Katie De La Fuente OT - 01/05/2024 10:19 AM CDT Barbara Chakraborty is a 73 yr old female with past medical history arthritis, anemia of renal disease, arthropathy of left shoulder, CKD, ESRD on hemodialysis (Tues, Thur and Satur); PMH: Parkinsonism, hyperlipidemia, hypertension, schizophrenia and type 2 diabetes who presents to the emergency department for left shoulder pain that has been present since mid November. She relates the pain started after she picked up her 2 yr old grandson. Xray from 12/01 show, Moderate osteoarthritic changes of the AC joint with [id number] osteoarthritic changes of the glenohumeral joint. There is obvious superior subluxation of the humeral head which is indicative of chronic rotator cuff tear. Pt was seen by Orthopedics and has had fluorescein guided injection to the left shoulder with minimal relief in pain. Pt reports has been taking tylenol 1000 mg TID, Ice and Lidocaine patches. She reports of intermittent numbness that radiates down her arm. No tingling. She reports pain is exacerbated by movement. She denies any trauma or injuries. Pt denies any neck or back pain. No chest pain or sob. No abdominal pain, nausea, vomiting or diarrhea. No fever or chills. Pt has missed dialysis in the past due to pain and will miss today due to recommendation for pt to go to the ER due to recent dx of UTI. . Per chart review: Pt was admitted at [facility] from 12/18-12/25 after patient experienced asyncopal episode during her dialysis treatment. Left upper extremity. No obvious deformity noted. Pt is able to raise left arm above head with somepain. Pt reports pain is worse when she extends it away from the body. OT recommended to cont 2 x wk 4 upon return from hospital. * Home Health Plan for Next Visit - Katie De La Fuente OT - 01/05/2024 10:19 AM CDT Reason for today's visit OT evaluation, assessment of ADLs, home assessment and relaxation tech's for pain management Discuss plan of care with pt and granddaughter present, daughter via telephone reported to OT she is taking patient to the hospital due to UTI Discharge planning when OT goals are met Plan for next visit follow up with ADL assessment due to L shoulder pain documented in this encounter Plan of Treatment Upcoming Encounters Date Type Department Care Team (Latest Contact Info) Description 07/13/2024 9:00 AM BENEFITS ADVISOR Hospital Encounter [facility] [address] [place] [address] Jaya Grier MD [facility] [facility] [address] [place] [address] 07/13/2024 9:00 AM BENEFITS ADVISOR - 07/13/2024 9:30 AM BENEFITS ADVISOR Surgery [facility] [address] [place] [address] Jaya Grier MD [facility] [facility] [address] [place] [address] ESOPHAGOGASTRODUODENOSCOPY Scheduled Procedures Name Priority Associated Diagnoses Date/Ti ia ESOPHAGOGASTRODUODENOSCOPY Anemia, unspecified type Gastritis without bleeding, unspecified chronicity, unspecified gastritis type 07/13/2024 9:00 AM BENEFITS ADVISOR COLONOSCOPY Iron deficiency anemia due to chronic blood loss documented as of this encounter Visit Diagnoses Not on filedocumented in this encounter 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 06/26/2024 3:05 AM BENEFITS ADVISOR documented as of this encounter Home Health Visit - Care Plan Visit Details Visit Type -OT Initial Evalu ation Discipline -Occupational Therapy Problems Problem Description Start Date Status Goals Interve ntions Homebound Status Disciplines: Skilled Disciplines Patient's homebound status 12/28/2023 Active 1 goal linked to scheduled/documen bruno intervention 1 goal intervention scheduled/documen bruno in this visit Monitor patient's vital signs every home health visit Disciplines: SN, PT, OT, DENTAL LABORATORY SUPERVISOR, MOTEL FRONT DESK CLERK, Skilled Disciplines Monitor patient's vital signs every [...] goal intervention scheduled/documen bruno in this visit OT Alteration in Coping Disciplines: Occupational Therapy 01/05/2024 Active - 1 problem intervention scheduled/documen bruno in this visit Goals Goal Associated Problem Outcome Goal Met? Visit Notes Patient receives care at the most appropriate care setting Description: Patient receives care at the most appropriate care setting. Homebound Status No Measure vital signs during every home health visit during episode of care Description: Home mental health clinician to measure vital signs during every [...] Prevention Goal:Verbalize signs of infection Completed Instruct patient on signs and symptoms of infection IE: fever, odor, change in color, increased amount of drainage, purulent drainage, warmth. Instruct Fall Prevention Description: Instruct patient/caregiver in methods to prevent falls Problem:Safety concerns Goal:Demonstrate use of safety precautions Completed Pt instructed in role of OT in homecare to assess environment and make recommendations to maximize (I) and safety, reduce fall risk, and to establish skills needed to complete ADLs and IADLs at highest practical level. Assess safety Description: Assess patient safety Problem:Safety concerns Goal:Demonstrate use of safety precautions Completed Pt instructed in role of OT in homecare to assess environment and make recommendations to maximize (I) and safety, reduce fall risk, and to establish skills needed to complete ADLs and IADLs at highest practical level. Assess patient for HOMMED monitor Description: Assess if there is a need for telemonitor. Problem:Remote Monitoring Goal:Demonstrate knowledge of telehealth Scheduled Instruct on pain management techniques Description: Instruct in pharmacologic and nonpharmacologic pain management techniques. Problem:Pain Goal:Report that pain has been reduced or controlled Completed Instruct in pharmacologic and nonpharmacologic pain management techniques. Instruct in relaxation strategies Problem:OT Alteration in Coping Completed Pt instructed in relaxation techniques to include breathing, positioning, and establishing a mental focus to improve attention to task needed to sequencing through steps of ADL/IADL task with good return demonstration. documented in this encounter Care Teams Outpatient Phlebotomist Relationship Specialty Start Date End Date Cherelle Corcoran MD PCP - General Family Medicine 08/30/19 Mark Queen MD Consulting Physician Infectious Diseases 01/10/20 Rudolph Welch MD [address] [facility] [address] [place] [address] Consulting Physician Infectious Diseases 12/05/22 Markie Ryan MD [address] [facility] [address] [place] [address] Consulting Physician Nephrology 12/05/22 Dulce Vega RN [address] [place] [address] [address] [place] [address] Head And Neck Surgeon 10/07/23 05/03/24 [place] [address] [facility] [address] [place] [address] Consulting Physician Nephrology 10/22/23 documented as of this encounter
--- OUTSIDE RECORDS SUMMARY | 2024-07-04 04:04 | XMS_ITS | Encounter Summary ---
Author Organization [facility] Address [address] [place] [address] Care Team Providers Care Boots And Shoes Supervisor Name Role Phone Cherelle Corcoran MD Primary Care Pro vider Mark Queen MD Unavailable [phone] Rudolph Welch MD Unavailable [phone] Markie Ryan MD Unavailable [phone] Dulce Vega RN Unavailable Jimbo Strauss MD Unavailable [phone] Encounter Details Date Type Department Care Team (Late st Contact Info) Description 12/29/2023 Orders Only [facility] - [address] [place], [place] [address] Shyanne Ybarra Social History Tobacco Use Types Packs/Day Years [...] materials from doctor or pharmacy Never 12/28/2023 [facility] Utilities Answer Date Recorded In the [...] often do you attend chur ch or restorationism services? More than 4 times per year 12/21/2023 Do you belong to any clubs o r organizations such as buddhist groups, unions, fraternal or athletic groups, or [...] on file Legal Sex Female 9:03 AM PACKING MACHINE CAN FEEDER Gender Identity Female 02/08/2020 6:39 PM CDT Sexual Orientation Not on file documented as of this encounter Plan of Treatment Upcoming Encounters Date Type Department Care Team (Latest Contact Info) Description 07/13/2024 9:00 AM PACKING MACHINE CAN FEEDER Hospital Encounter [facility] [address] [place] [address] Jaya Grier MD [facility] [address] [address] 07/13/2024 9:00 AM PACKING MACHINE CAN FEEDER - 07/13/2024 9:30 AM PACKING MACHINE CAN FEEDER Surgery [facility] [address] [place] [address] Jaya Grier MD [address] [facility] [address] [place] [address] ESOPHAGOGASTRODUODENOSCOPY Scheduled Orders Name Type Priority Associated Diagnoses Orde r Schedule HRS Home Monitoring Device Procedures Routine Ordered: 024 Scheduled Procedures Name Priority Associated Diagnoses Date/Ti me ESOPHAGOGASTRODUODENOSCOPY Anemia, unspecified type Gastritis without bleeding, unspecified chronicity, unspecified gastritis type 07/13/2024 9:00 AM PACKING MACHINE CAN FEEDER COLONOSCOPY Iron deficiency anemia due to chronic blood loss documented as of this encounter Visit Diagnoses Not on filedocumented in this encounter 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 06/26/2024 3:05 AM PACKING MACHINE CAN FEEDER documented as of this encounter Care Teams Boots And Shoes Supervisor Relationship Specialty Start Date End Date Cherelle Corcoran MD PCP - General Family Medicine 08/30/19 Mark Queen MD Consulting Physician Infectious Diseases 01/10/20 Rudolph Welch MD [address] [facility] [address] [place] [address] Consulting Physician Infectious Diseases 12/05/22 Markie Ryan MD [address] [facility] [address] [place] [address] Consulting Physician Nephrology 12/05/22 Dulce Vega, ALIREZA [address] [place] [address] [address] [place] [address] Sales And Marketing Intern 10/07/23 05/03/24 [place] [address] [address] Consulting Physician Nephrology 10/22/23 documented as of this encounter
--- OUTSIDE RECORDS SUMMARY | 2024-07-04 04:04 | XMS_ITS | Encounter Summary ---
Author Organization [facility] Healthcare Address [address] [place] [address] Care Team Providers Care Branch Lending Manager Name Role Phone Cherelle Corcoran MD Primary Care Pro vider Mark Queen MD Unavailable [phone] Rudolph Welch MD Unavailable [phone] Markie Ryan MD Unavailable [phone] Dulce Vega RN Unavailable Jimbo Strauss MD Unavailable [phone] Reason for Visit * Auth/Cert (Routine) Specialty Diagnoses / Procedures Referred By Contac t Referred To Contact Referral ID Status Reason Start Date Expiration Date Visits Re quested Visits Authorized [id number] 1 1 Encounter Details Date Type Department Care Team (Latest Contact Info) Description 12/28/2023 12:30 PM CDT Home Care Visit [facility] [address] [place] [address] Ten Spencer, ALIREZA SN OASIS START OF CARE Social History Tobacco Use Types Packs/Day Years [...] materials from doctor or pharmacy Never 12/28/2023 [facility] Utilities Answer Date Recorded In the past 12 months has e [employer], [employer], oil, or water [employer] threatened to shut off services in your [...] often do you attend chur ch or muslim services? More than 4 times per year 12/21/2023 Do you belong to any clubs o r organizations such as sabianism groups, unions, fraternal or athletic groups, or [...] any time in the past 12 m [facility], were you homeless or living in [...] on file Legal Sex Female 9:03 AM EAR SPECIALIST Gender Identity Female 02/08/2020 6:39 PM CDT Sexual Orientation Not on file documented as of this encounter Last Filed Vital Signs Vital Sign Reading Time Taken Comments Blood Pressure 148/68 12/28/2023 1:49 PM CDT Pulse 75 12/28/2023 1:49 PM CDT Temperature 36.7 ??C (98.1 ??F) 12/28/2023 1:49 PM CD T Respiratory Rate 18 12/28/2023 1:49 PM CDT Oxygen Saturation 97% 12/28/2023 1:49 PM CDT Inhaled Oxygen Concentration - - Weight 54.4 kg (120 lb) 12/28/2023 1:49 PM CDT Height 157.5 cm (5' 2 ) 12/28/2023 1:49 PM CDT Body Mass Index 21.95 12/28/2023 1:49 PM CDT documented in this encounter Miscellaneous Notes * Home Health/Infusion SBAR - Ten Spencer RN - 12/28/2023 2:41 PM CDT SITUATION Focus of Care: Chronic kidney disease, stage 4 (severe) Caregivers available: daughter BACKGROUND Pertinent Medical History/Hospitalizations: 12/18-12/24 [facility]. HX- DM2,HTN, GERD, Schizoaffective disorder, Parkinsons, ESRD on hemodialysis 3x/wk, CKD,Anemia. Prior Level of Functioning: required assistance Current Living Conditions/Safety Hazards: patient resides in a single story condo with her daughter. ASSESSMENT Abnormal assessment findings: pain to left shoulder. Medication Issues: none Re-hospitalization risk: moderate Barriers to care/social determinants: none RECOMMENDATIONS POC confirmed with Dr.Kaitlin Nilo MD Plan for my discipline: SN- 1w1,2w2,6z5-qhuxjqzs monitoring of co morbid conditions, medication education and management, DM education, infection prevention, fall prevention, pain management. Other disciplines ordered/recommended: Physical Therapy and Occupational Therapy Supply/HME/equipment needs or issues: walker in home Follow ups needed: Patient to follow up with PCP. PT and OT to evaluate and treat. SN to follow. * Quality Review - Leslie Schmidt OT - 12/28/2023 2:41 PM CDT M0150 corrected. * Quality Review - Neva Solomon - 12/28/2023 2:41 PM CDT M1005 - Inpatient Discharge Date 12/26/2023 12/25/2023 Discharge date from facility documented as 12/25/2023. Changed to reflect correct discharge date. M1700 - Cognitive Functioning 0- Alert/oriented 1- Requires prompting Changed from 0 to 1. Patient has late onset Alzheimer's w/ mild dementia, schizophrenia, and bipolar disorder. According to OASIS guidance, if patient has cognitive impairment or memory issues, or a diagnosis indicating cognitive impairment; then code M1700 based on patient??s status. M1028 - Active Diagnoses 2- Diabetes Changed from blank to 2. Patient has an active diagnosis of DM including diagnoses classified between E08-E13. M1340 - Surgical Wound 0- No 1- Yes, observable surgical wound Changed from 0 to 1. Consult 12/20/23 states patient has a tunneled hemodialysis catheter. According to OASIS guidance, if patient has a surgical wound, then Code 1. Example of surgical wounds include: surgical incision; dialysis insertion site or AV fistulas; implanted port; other central line; orthopedic pin site; wounds with drains; LATASHA drain after cholecystectomy; biopsy site; muscle or skin flap to replace pressure ulcer; and bowel ostomy take down. M1342 - Surgical Wound Status 3- not healing Changed to 3. Consult 12/20/23 states patient has a tunneled hemodialysis catheter. According to OASIS guidance, if a patient??s central line (NOT PICC) or dialysis catheter, infusion catheter, non-coring needle accessing an implanted port, orthopedic pin site, or surgical drain that is present will prevent granulation or healing from happening, then Code 3. M2200 - Therapy 006 002 Suggest change from 006 to 002, which is based on number of ordered therapy visits. documented in this encounter Plan of Treatment Upcoming Encounters Date Type Department Care Team (Latest Contact Info) Description 07/13/2024 9:00 AM [facility] Hospital Encounter [facility] [address] [place] [address] Jaya Grier MD [address] [place] [address] [address] [place] [id number] 07/13/2024 9:00 AM EAR SPECIALIST - 07/13/2024 9:30 AM EAR SPECIALIST Surgery [facility] [address] [place] [address] Jaya Grier MD [address] [address] ESOPHAGOGASTRODUODENOSCOPY Scheduled Procedures Name Priority Associated Diagnoses Date/Ti me ESOPHAGOGASTRODUODENOSCOPY Anemia, unspecified type Gastritis without bleeding, unspecified chronicity, unspecified gastritis type 07/13/2024 9:00 AM EAR SPECIALIST COLONOSCOPY Iron deficiency anemia due to chronic blood loss documented as of this encounter Visit Diagnoses Not on filedocumented in this encounter Home Health Visit - Care Plan Visit Details Visit Type -SN OASIS Start o f Care Discipline -Chcf Problems Problem Description Start Date Status Goals Interve ntions Homebound Status Disciplines: Skilled Disciplines Patient's homebound status 12/28/2023 Active 1 goal linked to scheduled/docume nted intervention 1 goal intervention scheduled/documen bruno in this visit Medications Disciplines: Chcf Management of home medications 12/28/2023 Active 1 goal linked to scheduled/docume nted intervention 2 goal interventions scheduled/documen bruno in this visit Monitor patient's vital signs every home health visit Disciplines: SN, PT, OT, ENGINEERING VICE PRESIDENT, SWITCHBOARD OPERATOR SUPERVISOR, Skilled Disciplines Monitor patient's vital signs every [...] goal intervention scheduled/documen bruno in this visit Learning/Teachin g Needs - Diabetes Disciplines: Chcf Learning and teaching needs associated with diagnosis 12/28/2023 Active 1 goal linked to scheduled/docume nted intervention 7 goal interventions scheduled/documen bruno in this visit Learning/Teachin g Needs - Hypertension Disciplines: Chcf Lack of knowledge regarding medical regimen related to controlling/manag ing hypertension 12/28/2023 Active 1 goal linked to scheduled/docume nted intervention 4 goal interventions scheduled/documen bruno in this visit [...] visit during episode of care Description: Home associate curator to measure vital signs during every home [...] at the most appropriate care setting Scheduled Instruct on Medication Management Description: Assess patient/caregiver ability to demonstrate management of medications, steps to obtain new/refills of medications and identification of new or changed medications. Assess patient/caregiver ability to verbalize accurate dose/route/frequency/reason for medication, how to evaluate effectiveness of medication, ongoing lab work needed to ensure therapeutic dosing, drug/food interactions, side effects/adverse reactions, contraindications for medications and known drug allergies. Evaluate the effectiveness of current treatment regimen and notify the appropriate healthcare provider for the need for changes in the plan of care. Problem:Medications Goal:Understand and follow medication therapy Scheduled Instruct on High Risk Medications Description: Instruct patient/caregiver on oral or injectable high-risk medications, including: anticonvulsant, antiretroviral, anticoagulant, antibiotics, chemotherapeutic, hypoglycemic including insulin, immunosuppressant, antipsychotic, and opioids. Problem:Medications Goal:Understand and follow medication therapy Scheduled Monitor Vital Signs Description: Monitor blood [...] pain has been reduced or controlled Scheduled Instruct diet Description: Instruct on diabetic diet and any fluid restrictions/requirements. Problem:Learning/Teachi ng Needs - Diabetes Goal:Demonstrate adequate knowledge of Diabetes Scheduled Instruct daily log Description: SN to develop blood sugar diary for patient to record all blood sugar readings in accordance with MD's Orders. Instruct when to call MD/RN or 911. Agency parameters: Call MD for blood sugar <70 for 3 days in a row or >240 for 3 days in a row or as instructed by MD. Problem:Learning/Teachi ng Needs - Diabetes Goal:Demonstrate adequate knowledge of Diabetes Scheduled Instruct sick day Description: Instruct patient/caregiver in Sick Day Guidelines. Problem:Learning/Teachi ng Needs - Diabetes Goal:Demonstrate adequate knowledge of Diabetes Scheduled Instruct on signs and symptoms of hyperglycemia Description: Instruct patient/caregiver in signs/symptoms of hyperglycemia. Problem:Learning/Teachi ng Needs - Diabetes Goal:Demonstrate adequate knowledge of Diabetes Scheduled Instruct s/s of hypoglycemia Description: Instruct patient/caregiver on the signs and symptoms of hypoglycemia. Problem:Learning/Teachi ng Needs - Diabetes Goal:Demonstrate adequate knowledge of Diabetes Scheduled Blood glucose monitoring Description: Patient/caregiver to perform blood sugar testing and record in log. Frequency of testing ACHS Problem:Learning/Teachi ng Needs - Diabetes Goal:Demonstrate adequate knowledge of Diabetes Scheduled Teach diabetes Description: Provide patient with diabetic education booklet and instruct on material. Problem:Learning/Teachi ng Needs - Diabetes Goal:Demonstrate adequate knowledge of Diabetes Scheduled Instruct on blood pressure daily log Description: Teach patient/family how to use cuff. SN to develop blood pressure diary for patient to record daily readings. Instruct patient to monitor and record blood pressure on daily log. Problem:Learning/Teachi ng Needs - Hypertension Goal:Demonstrate adequate knowledge of care related to Hypertension Scheduled Instruct diet Description: Instruct patient/caregiver on low salt diet. Problem:Learning/Teachi ng Needs - Hypertension Goal:Demonstrate adequate knowledge of care related to Hypertension Scheduled Instruct on stress reduction Description: Instruct patient/caregiver in how stress impacts health and in methods to reduce stress. Problem:Learning/Teachi ng Needs - Hypertension Goal:Demonstrate adequate knowledge of care related to Hypertension Scheduled Instruct on the risk factors of hypertension Description: Instruct patient/caregiver in disease process and effects of termite treater helper uncontrolled hypertension. Problem:Learning/Teachi ng Needs - Hypertension Goal:Demonstrate adequate knowledge of care related to Hypertension Scheduled documented in this encounter Care Teams Branch Lending Manager Relationship Specialty Start Date End Date Cherelle Corcoran MD PCP - General Family Medicine 08/30/19 Mark Queen MD Consulting Physician Infectious Diseases 01/10/20 Rudolph Welch MD [address] [facility] [address] [place] [address] Consulting Physician Infectious Diseases 12/05/22 Markie Ryan MD [address] [facility] [address] [place] [address] Consulting Physician Nephrology 12/05/22 Dulce Vega, RN [address] [place] [address] [address] [place] [address] Silica Dry Press Helper 10/07/23 05/03/24 [place] [address] [address] [facility] [address] [place] [address] Consulting Physician Nephrology 10/22/23 documented as of this encounter
--- OUTSIDE RECORDS SUMMARY | 2024-07-04 04:04 | XMS_ITS | Encounter Summary ---
Author Organization [facility] Healthcare Address [address] [place] [address] Care Team Providers Care System Development Engineer Name Role Phone Cherelle Corcoran MD Primary Care Pro vider Mark Queen MD Unavailable [phone] Rudolph Welch MD Unavailable Markie Ryan MD Unavailable [phone] Dulce Vega RN Unavailable Jimbo Strauss MD Unavailable [phone] Reason for Visit * Reason Comments Hospital Follow Up Wanting tramadol for pain Encounter Details Date Type Department Care Team (Latest Contact Info) Description 01/11/2024 3:30 PM CDT Office Visit 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 More than 4 times per year [...] place to sleep or slept in a longterm (including now)? No 10/30/2023 Housing Stability Vital [...] time in the past 12 m [place], were you homeless or living in a longterm (including now)? No 12/21/2023 Personal Safety Answer Date Recorded Have you ever been in or are you currently in a harmful physical or emotional relationship or is someone making you feel afraid or unsafe? 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 AM GREEN PLUMBER Gender Identity Female 02/08/2020 6:39 PM CDT Sexual Orientation Not on file documented as of this encounter Last Filed Vital Signs Vital Sign Reading Time Taken Comments Blood Pressure 140/80 01/11/2024 3:31 PM CDT Pulse 80 01/11/2024 3:31 PM CDT Temperature 36.3 ??C (97.3 ??F) 01/11/2024 3:31 PM CD T Respiratory Rate 18 01/11/2024 3:31 PM CDT Oxygen Saturation 99% 01/11/2024 3:31 PM CDT Inhaled Oxygen Concentration - - Weight 65.8 kg (145 lb) 01/11/2024 3:31 PM CDT Height 157.5 cm (5' 2 ) 01/11/2024 3:31 PM CDT Body Mass Index 26.52 01/11/2024 3:31 PM CDT documented in this encounter Ordered Prescriptions Prescription Sig Dispense Quantity Refills Last Filled Start Date End Date NIFEdipine (PROCARDIA XL/ADALAT CC) 60 mg 24 hr tabletIndications:Un controlled hypertension Take 1 tablet (60 mg total) by mouth daily 30 tablet 1 01/11/2024 4 traMADoL (ULTRAM) 25 mg tabletIndications:Ar thropathy of left shoulder Take 1 tablet (25 mg total) by mouth every 8 (eight) hours as needed for pain 90 tablet 01/11/2024 4 gabapentin (NEURONTIN) 100 mg capsuleIndications:D iabetic polyneuropathy associated with type 2 diabetes mellitus (CMS/HCC) (HCC) Take 100 mg 3 times per week after hemodialysis . 12 capsule 1 01/11/2024 4 documented in this encounter Progress Notes * Cherelle Corcoran MD - 01/11/2024 3:30 PM CDT Images from the original [...] I have noted any changes. Admission Date: 01/05/24 Discharge Date: 01/06/24 Date of Initial Post-discharge Interactive Contact: 01/07/24 Complexity of Medical Decision Making: high Metabolic Lab Results: Body mass index is 26.52 kg/m??. Glucose: Glucose Date Value Ref Range Status 01/05/2024 204 (H) 70 - 199 mg/dL Final Comment: [...] Glucose, POC Date Value Ref Range Status 01/06/2024 243 (H) 70 - 199 mg/dL Final Lab Results Component Value Date WBC 11.4 (H) 01/05/2024 HGB 7.9 (L) 01/05/2024 HCT 24.3 (L) 01/05/2024 MCV 97.6 (H) 01/05/2024 Lab Results Component Value Date GLUCOSE 243 (H) 01/06/2024 CALCIUM 9.5 01/05/2024 SODIUM 143 01/05/2024 POTASSIUM 4.2 01/05/2024 CO2 27 01/05/2024 CHLORIDE 105 01/05/2024 BUNSER 62 (H) 01/05/2024 CREATININE 4.50 (H) 01/05/2024 Major Procedures and Tests: Major Procedures and Tests Performed During Inpatient Stay: Studies Pending at Discharge (Includes Lab and Radiology) Studies pending at discahrge (includes Lab and Radiology) have been reviewed with the patient/caregiver. Interval History: Recently admitted for MDR UTI. Started on linezolid IV and then transitioned to PO x3d. Shoulder pain: saw physical therapy and advised to immobilize and follow up with orthopedics. Orthopedics ordered MRI, scheduled for 02/16. taking tramadol twice a day with improvement, denies side effects Hypertension: not taking nifedipine XR 60 mg, hydralazine 50 mg TID, carvedilol 3.125 mg twice a day, holding morning dose on dialysis days and then giving PM dose after HD. Diabetic neuropathy: daughter wondering if she can restart gabapentin as complains about tingling pain in extremities. Problem Arthropathy of Left Shoulder Uncontrolled Hypertension Diabetic Neuropathy (Hcc) Current Outpatient Medications Medication Sig Dispense Refill [...] daily with breakfast flash glucose scanning reader misc Use Madhav 3 reader to scan Madhav 3 sensor 1 each 0 flash glucose sensor (FreeStyle Madhav 2 Sensor) kit Use to continually monitor glucose, change every 14 days 6 kit 3 fluticasone propionate (FLONASE) 50 mcg/actuation nasal spray Administer 2 sprays into each nostrildaily as needed for rhinitis FreeStyle Madhav 3 [place] misc Use Madhav 3 reader to scan Madhav 3 sensor hydrALAZINE (APRESOLINE) 25 mg tablet Take 2 [...] total) by mouth nightly 30 tablet 0 diclofenac sodium (VOLTAREN) 1 % gel Apply 4 g topically 3 (three) times a day (Patient not taking:Reported on 01/05/2024) 100 g 0 gabapentin (NEURONTIN) 100 mg capsule Take 100 mg 3 times per week after hemodialysis. 12 capsule 1 NIFEdipine (PROCARDIA XL/ADALAT CC) 60 mg 24 hr tablet Take 1 tablet (60 mg total) by mouth daily 30 tablet 1 traMADoL (ULTRAM) 25 mg tablet Take 1 tablet (25 mg total) by mouth every 8 (eight) hours as neededfor pain 90 tablet 0 No current facility-administered medications for this visit. Review of Systems: Review of Systems Musculoskeletal: Positive for arthralgias. Neurological: Positive for numbness. Physical Exam: BP 140/80 (BP Location: Left arm, Patient Position: Sitting) Pulse 80 Temp 36.3 ??C (97.3 ??F) (Temporal) Resp 18 Ht 157.5 cm (5' 2 ) Wt 65.8 kg (145 lb) SpO2 99% BMI 26.52 kg/m?? Physical Exam Gen: NAD, comfortable, appears as stated age Eyes: no conjunctival injection, EOMI ENMT: external ears symmetric CV: Regular rate Pulm: no increased work of breathing Skin: no rashes or nodules, warm and dry MSK/Neuro: symmetric limb movement, using wheelchair Psych: alert and oriented to person/place Assessment/Plan Diagnoses and all orders for this visit: Multiple drug resistant organism (MDRO) culture positive (Primary) Comments: completed abx reports asymptomatic now Arthropathy of left shoulder Assessment & Plan: Uncontrolled despite injection Has improvement with tramadol and tolerated without side effects per daughter, refilled Following with orthopedics, upcoming MRI Orders: - traMADoL (ULTRAM) 25 mg tablet; Take 1 tablet (25 mg total) by mouth every 8 (eight) hours as needed for pain Uncontrolled hypertension Assessment & Plan: Systolic BP uncontrolled Stressed importance of picking up nifedipine with patient's daughter Areli Continue hydralazine 50mg three times a day and coreg twice a day on non dialysis days and once a day after dialysis Orders: - NIFEdipine (PROCARDIA XL/ADALAT CC) 60 mg 24 hr tablet; Take 1 tablet (60 mg total) by mouth daily Diabetic polyneuropathy associated with type 2 diabetes mellitus (CMS/HCC) (HCC) Assessment & Plan: Uncontrolled Patient's daughter requesting to restart gabapentin Orders: - gabapentin (NEURONTIN) 100 mg capsule; Take 100 mg 3 times per week after hemodialysis. Coordination of Home care services and follow-up with specialist appointments confirmed. Instructions have been provided to and reviewed with the patient/long term care phlebotomist prior to discharge. Cherelle Corcoran MD documented in this encounter Miscellaneous Notes * Assessment & Plan Note - Cherelle Corcoran MD - 01/11/2024 4:08 PM CDTAssociated Problem(s): Diabetic neuropathy (HCC) (Resolved 05/16/2024) Uncontrolled Patient's daughter requesting to restart gabapentin * Assessment & Plan Note - Cherelle Corcoran MD - 01/11/2024 4:05 PM CDTAssociated Problem(s): Primary hypertension Systolic BP uncontrolled Stressed importance of picking up nifedipine with patient's daughter Areli Continue hydralazine 50mg three times a day and coreg twice a day on non dialysis days and once a day after dialysis * Assessment & Plan Note - Cherelle Corcoran MD - 01/11/2024 4:03 PM CDTAssociated Problem(s): Arthropathy of left shoulder Uncontrolled despite injection Has improvement with tramadol and tolerated without side effects per daughter, refilled Following with orthopedics, upcoming MRI documented in this encounter Plan of Treatment Upcoming Encounters Date Type Department Care Team (Latest Contact Info) Description 07/13/2024 9:00 AM GREEN PLUMBER Hospital Encounter [facility] GI Lab [address] [place] [id number] Jaya Grier MD [address] [place] [address] [address] [place] [address] 07/13/2024 9:00 AM GREEN PLUMBER - 07/13/2024 9:30 AM GREEN PLUMBER Surgery [facility] Lab [address] [place] [id number] Jaya Grier MD [address] [place] [address] [address] [place] [id number] ESOPHAGOGASTRODUODENOSCOPY Scheduled Procedures Name Priority Associated Diagnoses Date/Ti ia ESOPHAGOGASTRODUODENOSCOPY Anemia, unspecified type Gastritis without bleeding, unspecified chronicity, unspecified gastritis type 07/13/2024 9:00 AM GREEN PLUMBER COLONOSCOPY Iron deficiency anemia due to chronic blood loss documented as of this encounter Visit Diagnoses Diagnosis Multiple drug resistant organism (MDRO) culture positive- Primary Arthropathy of left shoulder Uncontrolled hypertension Diabetic polyneuropathy associated with type 2 diabetes mellitus (CMS/HCC) (HCC) Anemia, unspecified type Gastritis without bleeding, unspecified chronicity, unspecified gastritis type documented in this encounter Discontinued Medications Medication Sig Discontinue Reason Start Date End Da te ferrous sulfate 325 mg (65 mg of elemental iron) tablet Take 1 tablet (65 mg of elemental iron total) by mouth 2 (two) times a day 01/11/2024 traMADoL (ULTRAM) 25 mg tablet Take 1 tablet (25 mg total) by mouth every 8 (eight) hours as needed for pain for up to 7 days Reorder 12/30/2023 01/11/2024 NIFEdipine (PROCARDIA XL/ADALAT CC) 60 mg 24 hr tablet Take 1 tablet (60 mg total) by mouth daily Reorder 12/25/2023 01/11/2024 documented as of this encounter Historical Medications * This list may reflect changes made after this encounter. 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 06/26/2024 3:05 AM GREEN PLUMBER documented as of this encounter Care Teams System Development Engineer Relationship Specialty Start Date End Date Cherelle Corcoran MD PCP - General Family Medicine 08/30/19 Mark Queen MD Consulting Physician Infectious Diseases 01/10/20 Rudolph Welch MD [address] [facility] [address] [place] [address] Consulting Physician Infectious Diseases 12/05/22 Markie Ryan MD [address] [facility] [address] [place] [address] Consulting Physician Nephrology 12/05/22 Dulce Vega, ALIREZA [address] [place] [address] [address] [place] [address] Toll Lineman 10/07/23 05/03/24 [place] [address] [address] Consulting Physician Nephrology 10/22/23 documented as of this encounter
--- OUTSIDE RECORDS SUMMARY | 2024-07-04 04:04 | XMS_ITS | Encounter Summary ---
Author Organization [facility] Healthcare Address [address] [place] [address] Care Team Providers Care Architectural Project Manager Name Role Phone Cherelle Corcoran MD Primary Care Pro vider Mark Queen MD Unavailable [phone] Rudolph Welch MD Unavailable [phone] Markie Ryan MD Unavailable [phone] Dulce Vega RN Unavailable Jimbo Strauss MD Unavailable [phone] Reason for Visit * Auth/Cert (Routine) Specialty Diagnoses / Procedures Referred By Contac t Referred To Contact Referral ID Status Reason Start Date Expiration Date Visits Re quested Visits Authorized [id number] 1 1 Encounter Details Date Type Department Care Team (Late st Contact Info) Description 01/08/2024 3:00 PM CDT Home Care Visit [facility] [address] [address] [address] [place] [address] Nicolas Burgess, RN SN HOME [...] materials from doctor or pharmacy Never 12/28/2023 [facility] Utilities Answer Date Recorded In the past 12 months has e [employer], [employer], oil, or water [employer] threatened to shut off services in [...] any clubs o r organizations such as scientology groups, unions, fraternal or athletic groups, or [...] on file Legal Sex Female 9:03 AM PRODUCTION SUPERINTENDENT HYDRO Gender Identity Female 02/08/2020 6:39 PM CDT Sexual Orientation Not on file documented as of this encounter Last Filed Vital Signs Vital Sign Reading Time Taken Comments Blood Pressure 142/58 01/08/2024 3:14 PM CDT Pulse 68 01/08/2024 3:14 PM CDT Temperature 36.7 ??C (98 ??F) 01/08/2024 3:14 PM CDT Respiratory Rate 18 01/08/2024 3:14 PM CDT Oxygen Saturation 98% 01/08/2024 3:14 PM CDT Inhaled Oxygen Concentration - - Weight - - Height - - Body Mass Index - - documented in this encounter Miscellaneous Notes * Home Health Visit Narrative - Nicolas Burgess RN - 01/08/2024 2:47 PM CDT Assessed patient. Educated on s/s of infection, fall prevention, and who to call in the event of decline in health or emergency. Set up telehealth for caregiver. documented in this encounter Plan of Treatment Upcoming Encounters Date Type Department Care Team (Latest Contact Info) Description 07/13/2024 9:00 AM PRODUCTION SUPERINTENDENT HYDRO Hospital Encounter [facility] GI Lab [address] [place] [id number] Jaya Grier MD [address] [place] [address] [address] [place] [address] 07/13/2024 9:00 AM PRODUCTION SUPERINTENDENT HYDRO - 07/13/2024 9:30 AM PRODUCTION SUPERINTENDENT HYDRO Surgery [facility] GI Lab [address] [place] [address] Jaya Grier MD [facility] [address] [place] [address] ESOPHAGOGASTRODUODENOSCOPY Scheduled Procedures Name Priority Associated Diagnoses Date/Ti la ESOPHAGOGASTRODUODENOSCOPY Anemia, unspecified type Gastritis without bleeding, unspecified chronicity, unspecified gastritis type 07/13/2024 9:00 AM PRODUCTION SUPERINTENDENT HYDRO COLONOSCOPY Iron deficiency anemia due to chronic blood loss documented as of this encounter Visit Diagnoses Not on filedocumented in this encounter 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 06/26/2024 3:05 AM PRODUCTION SUPERINTENDENT HYDRO documented as of this encounter Home Health Visit - Care Plan Visit Details Visit Type -SN Home Visit Discipline -Usp Problems Problem Description Start Date Status Goals Interve ntions Homebound Status Disciplines: Skilled Disciplines Patient's homebound status 12/28/2023 Active 1 goal linked to scheduled/docume nted intervention 1 goal intervention scheduled/documen bruno in this visit Medications Disciplines: Usp Management of home medications 12/28/2023 Active 1 goal linked to scheduled/docume nted intervention 2 goal interventions scheduled/documen bruno in this visit Monitor patient's vital signs every home health visit Disciplines: SN, PT, OT, VALVE REPAIRER RECLAMATION, AS400 PROGRAMMER, Skilled Disciplines Monitor patient's vital signs every [...] intervention scheduled/documen bruno in this visit Learning/Jagdeep montaño Needs - Diabetes Disciplines: Usp Learning and teaching needs associated with diagnosis 12/28/2023 Active 1 goal linked to scheduled/docume nted intervention 7 goal interventions scheduled/documen bruno in this visit Learning/Jagdeep montaño Needs - Hypertension Disciplines: Usp Lack of knowledge regarding medical regimen related [...] Problem:Medications Goal:Understand and follow medication therapy Completed Instruct on High Risk Medications Description: Instruct patient/caregiver on oral or injectable high-risk medications, including: anticonvulsant, antiretroviral, anticoagulant, antibiotics, chemotherapeutic, hypoglycemic including insulin, immunosuppressant, antipsychotic, and opioids. Problem:Medications Goal:Understand and follow medication therapy Completed Monitor Vital Signs Description: Monitor blood pressure, [...] has been reduced or controlled Completed Instruct diet Description: Instruct on diabetic diet and any fluid restrictions/requirement s. Problem:Learning/Te aching Needs - Diabetes Goal:Demonstrate adequate knowledge of Diabetes Completed Patient has had diabetes for several years and glucose numbers are doing great 100-150 Instruct daily log Description: SN to develop blood sugar diary for patient to record all blood sugar readings in accordance with MD's Orders. Instruct when to call MD/RN or 911. Agency parameters: Call MD for blood sugar <70 for 3 days in a row or >240 for 3 days in a row or as instructed by MD. Problem:Learning/Te aching Needs - Diabetes Goal:Demonstrate adequate knowledge of Diabetes Completed Patient/caregiver has a log Instruct sick day Description: Instruct patient/caregiver in Sick Day Guidelines. Problem:Learning/Te aching Needs - Diabetes Goal:Demonstrate adequate knowledge of Diabetes Completed Instruct on signs and symptoms of hyperglycemia Description: Instruct patient/caregiver in signs/symptoms of hyperglycemia. Problem:Learning/Te aching Needs - Diabetes Goal:Demonstrate adequate knowledge of Diabetes Completed Patient has had DM for several years and are aware of s/s Instruct s/s of hypoglycemia Description: Instruct patient/caregiver on the signs and symptoms of hypoglycemia. Problem:Learning/Te aching Needs - Diabetes Goal:Demonstrate adequate knowledge of Diabetes Completed Patient aware of s/s of hypoglycemia Blood glucose monitoring Description: Patient/caregiver to perform blood sugar testing and record in log. Frequency of testing ACHS Problem:Learning/Te aching Needs - Diabetes Goal:Demonstrate adequate knowledge of Diabetes Completed Teach diabetes Description: Provide patient with diabetic education booklet and instruct on material. Problem:Learning/Te aching Needs - Diabetes Goal:Demonstrate adequate knowledge of Diabetes Completed Patient has had diabetes for several years and glucose numbers are doing great 100-150 Will bring booklet to next visit. Instruct on blood pressure daily log Description: Teach patient/family how to use cuff. SN to develop blood pressure diary for patient to record daily readings. Instruct patient to monitor and record blood pressure on daily log. Problem:Learning/Te aching Needs - Hypertension Goal:Demonstrate adequate knowledge of care related to Hypertension Completed Instruct diet Description: Instruct patient/caregiver on low salt diet. Problem:Learning/Te aching Needs - Hypertension Goal:Demonstrate adequate knowledge of care related to Hypertension Completed Patient/caregiver watching salt intake Instruct on stress reduction Description: Instruct patient/caregiver in how stress impacts health and in methods to reduce stress. Problem:Learning/Te aching Needs - Hypertension Goal:Demonstrate adequate knowledge of care related to Hypertension Completed Instruct on the risk factors of hypertension Description: Instruct patient/caregiver in disease process and effects of mcc uncontrolled hypertension. Problem:Learning/Te aching Needs - Hypertension Goal:Demonstrate adequate knowledge of care related to Hypertension Completed documented in this encounter Care Teams Architectural Project Manager Relationship Specialty Start Date End Date Cherelle Corcoran MD PCP - General Family Medicine 08/30/19 Mark Queen MD Consulting Physician Infectious Diseases 01/10/20 Rudolph Welch MD [address] [facility] [address] [address] Consulting Physician Infectious Diseases 12/05/22 Markie Ryan MD [address] [facility] [address] [place] [address] Consulting Physician Nephrology 12/05/22 Dulce Vega, ALIREZA [address] [facility] [address] [place] [address] Director Clinical Research 10/07/23 05/03/24 [place] [address] [address] [place] [address] Consulting Physician Nephrology 10/22/23 documented as of this encounter
--- OUTSIDE RECORDS SUMMARY | 2024-07-04 04:04 | XMS_ITS | Encounter Summary ---
Author Organization [facility] Healthcare Address [address] [place] [address] Care Team Providers Care Ethics Instructor Name Role Phone Cherelle Corcoran MD Primary Care Pro vider Mark Queen MD Unavailable [phone] Rudolph Welch MD Unavailable [phone] Markie Ryan MD Unavailable [phone] Dulce Vega RN Unavailable [phone] Jimbo Strauss MD Unavailable [phone] Reason for Visit * Reason Comments Weakness - Generalized * Auth/Cert (Routine) Specialty Diagnoses / Procedures Referred By Contac t Referred To Contact Referral ID Status Reason Start Date Expiration Date Visits Re quested Visits Authorized [id number] 1 1 Encounter Details Date Type Department Care Team (Late st Contact Info) Description 01/13/2024 11:45 AM CDT Home Care Visit [facility] [address] [place] [address] Sarahy Feliciano PTA PT HOME VISIT Social History Tobacco Use Types [...] materials from doctor or pharmacy Never 12/28/2023 [facility] Utilities Answer Date Recorded In the past 12 months has th e [employer], gas, oil, or water [employer] threatened to shut off services in your [...] any clubs o r organizations such as christianity groups, unions, fraternal or athletic groups, or [...] any time in the past 12 m [facility], were you homeless or living in a senior care (including now)? No 12/21/2023 Personal Safety Answer Date Recorded Have you ever been in or are you currently in a harmful physical or emotional relationship or is someone making you feel afraid or unsafe? 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 AM TERRITORY ACCOUNT MANAGER Gender Identity Female 02/08/2020 6:39 PM CDT Sexual Orientation Not on file documented as of this encounter Last Filed Vital Signs Vital Sign Reading Time Taken Comments Blood Pressure 150/78 01/13/2024 12:14 PM CDT Pulse 74 01/13/2024 12:14 PM CDT Temperature 37.2 ??C (98.9 ??F) 01/13/2024 12:14 PM C DT Respiratory Rate 18 01/13/2024 12:14 PM CDT Oxygen Saturation 98% 01/13/2024 12:14 PM CDT Inhaled Oxygen Concentration - - Weight - - Height - - Body Mass Index - - documented in this encounter Miscellaneous Notes * Home Health Plan for Next Visit - Sarahy Feliciano PTA - 01/13/2024 12:06 PM CDT Reason for today's visit strength, balance, transfers, gait and safety training. Discuss plan of care with pt who remains agreeable. Updated PT Discharge planning when goals are met, or pt has achieved max therapeutic benefit from Home Care PTservices. Plan for next visit to cont to progress HEP, strength, balance, gait and transfers to facilitate improved functional ability and mobility and to decrease fall risk. pt tolerated the addition of standing ex without compliants this date. Added to HEP and left pictorial and written hep handout for pts family. pt cont with the use of pillow support for left UE whilesitting in her living room chair as per edcuation provided at last visit. Pt noted to have difficuty processing how to complete sit to sup and required mod assist to complete with max verbal cues. pt appeared to be annoyed at having to participate with therapy stating I can do this stuff why do I need you here if you aren't going to fix my arm explained to pt about the benefits and rationale ofphysical therapy services, pt voiced understanding. plan to work on tub transfer and stair trainingat next visit as pt declined this date. documented in this encounter Plan of Treatment Upcoming Encounters Date Type Department Care Team (Latest Contact Info) Description 07/13/2024 9:00 AM TERRITORY ACCOUNT MANAGER Hospital Encounter [facility] [address] [place] [address] Jaya Grier MD [address] [place] [id number] 07/13/2024 9:00 AM TERRITORY ACCOUNT MANAGER - 07/13/2024 9:30 AM TERRITORY ACCOUNT MANAGER Surgery [facility] [address] [place] [address] Jaya Grier MD [address] [address] ESOPHAGOGASTRODUODENOSCOPY Scheduled Procedures Name Priority Associated Diagnoses Date/Ti me ESOPHAGOGASTRODUODENOSCOPY Anemia, unspecified type Gastritis without bleeding, unspecified chronicity, unspecified gastritis type 07/13/2024 9:00 AM TERRITORY ACCOUNT MANAGER COLONOSCOPY Iron deficiency anemia due to chronic blood loss documented as of this encounter Visit Diagnoses Not on filedocumented in this encounter 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 06/26/2024 3:05 AM TERRITORY ACCOUNT MANAGER documented as of this encounter Home Health Visit - Care Plan Visit Details Visit Type -PT Home Visit Discipline -Physical Therapy Problems Problem Description Start Date Status Goals Interve ntions Homebound Status Disciplines: Skilled Disciplines Patient's homebound status 12/28/2023 Active 1 goal linked to scheduled/documen bruno intervention 1 goal intervention scheduled/documen bruno in this visit Monitor patient's vital signs every home health visit Disciplines: SN, PT, OT, BREAKER BOSS, GEOSCIENCE SPECIALIST, Skilled Disciplines Monitor patient's vital signs every [...] Disciplines: Physical Therapy Impaired functional mobility 01/04/2024 Active - 3 problem interventions scheduled/documen bruno in this visit Goals Goal Associated Problem Outcome Goal Met? Visit Notes Patient receives care at the most appropriate care setting Description: Patient receives care at the most appropriate care setting. Homebound Status No Measure vital signs during every home health visit during episode of care Description: Home nurse clinician to measure vital signs during every [...] setting Completed Patient is homebound due to recent hospitalization due to syncope requiring use of AD, unsteady gait, balance deficits, fall risk, assist for transfers and adl's/personal care, pain limiting mobility and transfers, and assist of another to leave the home making it a taxing effort. Monitor Vital Signs Description: Monitor blood pressure, pulse, oxygen saturation, respirations Problem:Monitor patient's vital signs every home health visit Goal:Measure vital signs during every home health visit during episode of care Completed Monitored patients blood pressure, pulse, oxygen saturation, temp, and respirations during session. pt unaware of [employer] system and unable to locate in pts home as home is cluttered. pts chuckies girlfriend was unaware of it either. Educate Patient on Infection Prevention Description: Instruct patient on signs and symptoms of infection IE: fever, odor, change in color, increased amount of drainage, purulent drainage, warmth. Problem:Infection Prevention Goal:Verbalize signs of infection Completed Patient instructed on signs and symptoms of infection IE: fever, warmth, odor, change in color, increased amount of drainage, or purulent drainage. Pt voiced understanding of the instruction provided. Instruct Fall Prevention Description: Instruct patient/caregiver in methods to prevent falls Problem:Safety concerns Goal:Demonstrate use of safety precautions Completed Patient and/or caregiver on methods to prevent falls including: removal of throw rugs from the tutu, maintaining pathway clear of tripping hazards and pets, using nightlights, keeping walking areas well lit, use of assistive device for safety, supervision for mobility including enter/exit the home and assist with stair mobility. Pt verbalized good understanding of instuctions and provides safe verbalization/return demonstration of the instructions. Assess safety Description: Assess patient safety Problem:Safety concerns Goal:Demonstrate use of safety precautions Completed Patient/Caregiver maintains safe enviroment as evident by remaining free from falls and demonstrates fair to poor use of safety precautions. Assess patient for HOMMED monitor Description: Assess if there is a need for telemonitor. Problem:Remote Monitoring Goal:Demonstrate knowledge of telehealth Completed pt unaware of [facility] [employer] system and unable to locate in pts home as home is cluttered. pts chuckies girlfriend was unaware of it either. Instruct on pain management techniques Description: Instruct in pharmacologic and nonpharmacologic pain management techniques. Problem:Pain Goal:Report that pain has been reduced or controlled Completed Patient/Caregiver instructed on pharmacologic and nonpharmacologic pain management techniques. Instructed pt to rest as needed, take medication as prescribed. Educated to call MD office or nurse triage in case of new or worsening pain. Patient/Caregiver verbalizes good understanding of instructions and provides safe verbalization/return demonstration of the instructions. Gait/Stair Training Description: Instruct patient/caregiver and perform gait/stair training. Problem:PT Impaired Functional Mobility Completed Pt. instructed on gait training outright t/o home for distance around 87' with sba. Pt completed gait training with a shuffle pattern, dercreased gregoria, no foot clearance and no arm swing with left ue held tight across pts abdomen flexed at the elbow. Provided pt with verbal cues to improve technique with pt demonstrating poor understanding and inability to follow through with the cues provided. Bed Mobility/Transfer Training Description: Instruct patient/caregiver and perform bed mobility/transfer training. Problem:PT Impaired Functional Mobility Completed Pt completed sit to stand from armed sitting chair and edge of bed with sba and was able to use left UE to assist depsite having significant c/o pain and noted to have no c/o or grimmace or outward signs of pain during the transfers. pt completed sit to and from supine with mod assist and use of bedrail. pt noted to have decreased understanding of how to complete sit to supine. With supine to sit pt noted to have c/o pain in left shoulder and guarding noted. pt declined tub transfer and step training this date, instructed pt that we would perform them at her next visit with pt voicing understanding. Balance Training/Activities Description: Instruct patient/caregiver and perform balance training activities. Problem:PT Impaired Functional Mobility Completed Pt. instructed in standing therex 10 reps x 1 set at countertop for bilateral hip flex, hip abd, knee flex, and heel raises. Pt. demonstrated fair understanding of the exercises and instruction provided with pictorial and written hep handout. Pt. instructed in seated therex 15 reps x 1 set for bilateral hip flex, abd, knee ext, and ankle df/pf. Pt. demonstrated understanding of the exercises and instruction provided. documented in this encounter Care Teams Ethics Instructor Relationship Specialty Start Date End Date Cherelle Corcoran MD PCP - General Family Medicine 08/30/19 Mark Queen MD Consulting Physician Infectious Diseases 01/10/20 Rudolph Welch MD [address] [place] [address] Consulting Physician Infectious Diseases 12/05/22 Markie Ryan MD [address] [place] [address] Consulting Physician Nephrology 12/05/22 Dulce Vega RN [address] [place] [address] [address] [place] [address] Civil Design Specialist 10/07/23 05/03/24 [place] [id number] [address] Consulting Physician Nephrology 10/22/23 documented as of this encounter
--- OUTSIDE RECORDS SUMMARY | 2024-07-04 04:04 | XMS_ITS | Encounter Summary ---
Author Organization [facility] Healthcare Address [address] [place] [address] Care Team Providers Care Service Operator Name Role Phone Cherelle Corcoran MD Primary Care Pro vider Mark Queen MD Unavailable [phone] Rudolph Welch MD Unavailable Markie Ryan MD Unavailable Dulce Vega RN Unavailable Jimbo Strauss MD Unavailable [phone] Jaya Grier MD Unavailable Reason for Visit * Reason Onset Date Comments Shoulder Pain 12/31/2023 Encounter Details Date Type Department Care Team (Late st Contact Info) Description 12/31/2023 Nurse Triage [facility] Medical Group Primary Care at [place] [id number] [facility] [address] [place] [address] Cherelle Corcoran MD [facility] [address] [place] [address] Social History Tobacco Use Types Packs/Day [...] materials from doctor or pharmacy Often 01/20/2024 [facility] Utilities Answer Date Recorded In the [...] often do you attend chur ch or sabianist services? More than 4 times per year [...] any time in the past 12 m [facility], were you homeless or living in a penitentiary (including now)? No 04/20/2024 Personal Safety Answer Date Recorded Have you ever been in or are you currently in a harmful physical or emotional relationship or is someone making you feel afraid or unsafe? Denies 04/19/2024 Comments No Sex and Gender Information Value Date Recorded Sex Assigned at Not on file Legal Sex Female 9:03 AM HELP DESK ASSISTANT Gender Identity Female 02/08/2020 6:39 PM CDT Sexual Orientation Not on file documented as of this encounter Miscellaneous Notes * Telephone Encounter - Box, HONEY Delgado - 12/31/2023 9:13 AM CDT There was a [employer] message sent to pt daughter yesterday in regards to this. She is scheduled tomorrow 01/01/2024 and 2 medications were sent in to help with the pain yesterday. I just got off the phone with Ursula and informed her of this. She stated she is going to try her best to get her mother here tomorrow but she is in [place] and just wants an MRI to be completed. Just spoke with Dr. Corcoran and she is stating that she is following ortho and she would need to have ortho order the MRI. Pt daughter is aware * Telephone Encounter - Lupe Springer RN - 12/31/2023 7:02 AM CDT Onset: x 30 day (s). Pain: severe /10. Symptoms: DTR Areli (HIPAA verified) reported-patient c/o:chronic left shoulder pain (rotator cuff) and elevated BP. Patient was seen in the ED BP due to thepain.. Patient has been seen in the ED 3-4 times. Physical therapy was ordered but patient is on dialysis and has not been going to PT. Xrays show osteoarthritis and chronic rotator cuff disease. DTRsaid one Dr said he saw a tear.. DTR is requesting an MRI and a stronger pain medication. DTR states she is on 6 different BP meds-not reconciled. Denies: other symptoms. Relevant Meds: APAP 1000 mg TID, ICE, LIDOCAINE PATCHES, 2 steroid injections, diclofenac topical TID Relevant HX of: solange 11/10/23. osteoarthritis and chronic rotator cuff disease, CKD. Home Care Instructions/Education given: Patient verbalizes understanding of the instructions, is comfortable with the plan and will comply with the plan with modification. Disposition per guideline: Go to office now. Declined appt for today because of lack of transportation. Appt 01/01/[address] Corcoran was previously scheduled. PLEASE ADVISE PATIENT: [phone]. DTR is requesting an MRI be scheduled RA and a stronger pain medication.today. Pharmacy and allergies were verified. HP tasked to PCP's clinical pool. Reason for Disposition SEVERE pain (e.g., excruciating, unable to do any normal activities) Protocols used: Shoulder [id number] * Telephone Encounter - Lupe Springer RN - 12/31/2023 7:01 AM CDT Regarding: Rotator Cuff Pain ----- Message from Katherine Roht sent at 12/31/2023 6:53 AM CDT ----- Rotator Cuff Pain for a month. Has been ER dept 3/4 times. PT was ordered but patient is on dialysis, and there are issues with that. Pain is causing her blood pressure to be very high. X-rays have been done and getting different reports, one says tear and one says none. Daughter says she need MRI.And says no one has given her anything for pain, just told to take Tylenol 1000 mgs. Has had 2 steroid shots in her shoulder. Pain is severe, crying with it all the time. ( Daughter on HIIPA) documented in this encounter Plan of Treatment Upcoming Encounters Date Type Department Care Team (Latest Contact Info) Description 07/13/2024 9:00 AM HELP DESK ASSISTANT Hospital Encounter [facility] [address] [place] [address] Jaya Grier MD [address] [place] [address] 07/13/2024 9:00 AM HELP DESK ASSISTANT - 07/13/2024 9:30 AM HELP DESK ASSISTANT Surgery [facility] [address] [place] [address] Jaya Grier MD [address] [place] [address] ESOPHAGOGASTRODUODENOSCOPY Scheduled Procedures Name Priority Associated Diagnoses Date/Ti me ESOPHAGOGASTRODUODENOSCOPY Anemia, unspecified type Gastritis without bleeding, unspecified chronicity, unspecified gastritis type 07/13/2024 9:00 AM HELP DESK ASSISTANT COLONOSCOPY Iron deficiency anemia due to chronic blood loss documented as of this encounter Visit Diagnoses Not on filedocumented in this encounter 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 06/26/2024 3:05 AM HELP DESK ASSISTANT documented as of this encounter Care Teams Service Operator Relationship Specialty Start Date End Date Cherelle Corcoran MD PCP - General Family Medicine 08/30/19 Mark Queen MD Consulting Physician Infectious Diseases 01/10/20 Rudolph Welch MD [address] [place] [address] Consulting Physician Infectious Diseases 12/05/22 Markie Ryan MD [address] [place] [address] Consulting Physician Nephrology 12/05/22 Dulce Vega, ALIREZA [address] [place] [address] [address] [place] [address] Glass Robot Operator 10/07/23 05/03/24 [place] [address] [address] [place] [address] Consulting Physician Nephrology 10/22/23 Jaya Grier MD [address] [place] [address] Consulting Physician Gastroenterology 02/01/24 documented as of this encounter
--- OUTSIDE RECORDS SUMMARY | 2024-07-04 04:04 | XMS_ITS | Encounter Summary ---
Author Organization [facility] Healthcare Address [address] [place] [address] Care Team Providers Care Acute Care Physician Name Role Phone Cherelle Corcoran MD Primary Care Pro vider Mark Queen MD Unavailable [phone] Rudolph Welch MD Unavailable [phone] Markie Ryan MD Unavailable [phone] Dulce Vega RN Unavailable [phone] Jimbo Strauss MD Unavailable [phone] Reason for Referral * Home Health (Routine) - Pending Review Specialty Diagnoses / Procedures Referred By Maryse t Referred To Contact Home Health Services / Home Health and Hospice Diagnoses Physical deconditioning Late onset Alzheimer's dementia without behavioral disturbance (HCC) Kiley Nye, JARAD [address] [place] [address] Phone: tel: fax: [facility] Home Care Services [address] [place] [address] Phone: tel: fax: Referral ID Status Reason Start Date Expiration Date Visits Requested Visits Authorized [id number] Pending Review Specialty Services Required 01/06/2024 02/04/2025 1 1 [facility] Primary disciplines requested: Physical Therapy Secondary disciplines requested: Occupational Therapy Home Health Services Therapy to Eval/Tx Therapy instructions: Evaluation/treatment Requested Start of Care Date: 24-48 hours Physician to follow patient's care (the person listed here will be responsible for signing ongoing orders): PCP I attest that I or another qualified licensed provider saw the patient 90 days prior to or 30 days post admission and this face to face encounter meets the necessary Home Health requirements. The face to face encounter occurred on (date): 01/06/2024 The encounter with the patient was in whole, or in part, for the following medical condition, which is the primary reason for home health care. (List medical condition): Alzheimers. resuming previous HH care I certify that, based on my findings, the following services are medically necessary skilled home health services: Therapy to Eval/Tx Clinical findings that support the need for home care: Medical condition requiring skilled assessment/education I certify that my clinical findings support patient's homebound status. 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 Procedures n/a Referral ID Status Reason Start Date Expiration Date Visits Re quested Visits Authorized [id number] 1 1 Encounter Details Date Type Department Care Team (Late st Contact Info) Description 01/05/2024 5:38 PM CDT - 01/06/2024 9:02 PM CDT Emergency [facility] [address] [place] [address] Wilner Lopez MD [address] [place] [address] Shari Laura MD [address] [place] [address] Karri Kirkpatrikc MD [address] [place] [address] Kojo Mckeon MD [address] [place] [address] 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 More than 4 times per year [...] place to sleep or slept in a long term (including now)? No 10/30/2023 Housing Stability Vital [...] were you homeless or living in a long term (including now)? No 12/21/2023 Personal Safety Answer Date Recorded Have you ever been in or are you currently in a harmful physical or emotional relationship or is someone making you feel afraid or unsafe? 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 Gender Identity Female 02/08/2020 6:39 PM CDT Sexual Orientation Not on file documented as of this encounter Last Filed Vital Signs Vital Sign Reading Time Taken Comments Blood Pressure 136/64 01/06/2024 7:30 PM CDT Pulse 78 01/06/2024 7:30 PM CDT Temperature 36.9 ??C (98.4 ??F) 01/06/2024 7:30 PM CD T Respiratory Rate 16 01/06/2024 7:30 PM CDT Oxygen Saturation 98% 01/06/2024 7:30 PM CDT Inhaled Oxygen Concentration - - Weight 65.9 kg (145 lb 4.5 oz) 01/06/2024 12:13 AM CDT Height 157.5 cm (5' 2 ) 01/06/2024 12:13 AM CDT Body Mass Index 26.57 01/06/2024 12:13 AM CDT documented in this encounter Discharge Summaries * Kiley Nye NP - 01/06/2024 2:53 PM CDT Inpatient Discharge Summary BRIEF OVERVIEW Admitting Provider: Wilner Lopez MD Discharge Provider: Karri Kirkpatrick MD Primary Care Physician at Discharge: Cherelle Corcoran MD [phone] Admission Date: 01/05/2024 Discharge Date: 01/06/2024 Admission Location: [facility] Problems/Diagnoses: Principal Problem: 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 Active Problems: ESRD on hemodialysis ([facility]) ([facility]) Type 2 diabetes mellitus with diabetic neuropathy, with long-term current use of insulin ([facility]) Uncontrolled hypertension Gastroesophageal reflux disease without esophagitis Late onset Alzheimer's dementia without behavioral disturbance (HCC) Chronic diastolic congestive heart failure ([facility]) ([facility]) Resolved Problems: No resolved hospital problems. DETAILS OF HOSPITAL STAY Presenting Problem/History of Present Illness: From H&P: Barbara Chakraborty is a 73 y.o. female with PMH ESRD on iHD, diastolic HF, T2DM, HTN, schizoaffective disorder, alzheimer's diease who presents for further management of VRE bacteruria. Patient at facility reportedly was doing OK after prior hospital admission, though was still havingissues with BP control after initiation of nifedipine and hydralazine (Daughter states that she wasfollowing antihypertensive recs as per d/c recs from [facility] with holding antihypertensives until after HD on HD days). Issue largely due to patient being hypertensive on dialysis days though no reported hypotensive episodes or syncopal episodes similar to prior episodes with HD. Patient did have continued L shoulder pain from injury from 11/2023 which prompted ED visit on 12/28. At that time, due to reported fatigue and malaise, patient had UA prior to discharge. UA appeared dirty and culture has now grown VRE. After discharge, patient and daughter mention no significant complaints except for mild dysuria and some increased urinary frequency. Denies malodorous urine, hematuria, flank pain. BG readings have been well controlled at this time. Also mentions no fevers/chills, nausea/vomiting/diarrhea, malaise, fatigue at this time. Due to positive culture, she was called to return to ED for further workup. On arrival, hypertensive, afebrile, satting well on RA. Patient had missed HD today as she went straight to ED after called back and also did not take antihypertensives. Received blood cx x2 which are pending, BMP without electrolyte abnormalities or worsening acidosis, Hgb 7.9, WBC elevated 11.4. P atient started on IV linezolid given susceptibilities of VRE isolate from urine cx on 12/28. 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 Patient is minimally symptomatic though does report some urinary frequency and has elevated WBC. She still makes urine despite ESRD. Bcx NGTD -transition from IV linezolid to PO linezolid; plan for 3 day course ESRD on hemodialysis History of ESRD on HD Thu//Sat. Missed HD session on 01/04 due to ED calling patient in. BMP without significant electrolyte abnormalities, patient does not appear hypervolemic, but BP is elevated (did miss taking all antihypertensives this AM). No urgent/emergent need for dialysis; got shortened session on 01/05. - cont TRS HD as scheduled Uncontrolled hypertension Patient with uncontrolled hypertension in ED. Patient has issues with labile BP with hypertension on non-HD days and episodes of hypotension and syncopal episode x1 with HD. Most recent admission at [facility] with initiation of hydralazine and nifedipine in addition to existing carvedilol with modest improvement in BP control as outpatient though some frustration by patient and family regarding protocol of holding antihypertensives on HD days causing elevated readings at home. Currentlypatient asymptomatic and well controlled. -restart home nifedipine XR 60 mg, hydralazine 25-->50 mg TID, carvedilol 3.125 mg BID Type 2 diabetes mellitus with diabetic neuropathy, with long-term current use of insulin History of DM2 on insulin therapy basal + bolus. Patient reportedly with good BG control as outpatient per daughter with readings 120-150 mg/dl. BG elevated in ED as patient did not take any meds including insulin prior to presentation. Chronic diastolic congestive heart failure Patient euvolemic at this time. -continue coreg, nifedipine, hydralazine for BP control Late onset Alzheimer's dementia without behavioral disturbance Follows with neurology. -continue risperidone 2mg QHS -continue benztropine 2mg daily Gastroesophageal reflux disease without esophagitis -continue famotidine Active Issues Requiring Follow-up: F/u PCP F/u OP HD Test Results Pending at Discharge: Pending Labs Order Current Status Urinalysis reflex to microscopic and culture Urine Collected (01/06/24 1228) Blood culture Blood Preliminary result Blood culture Blood Preliminary result Discharge Details Physical Exam at Discharge: Discharge Condition: stable Pulse: 79 Resp: 12 BP: 151/61 Temp: 36.7 ??C (98.1 ??F) Weight: 65.9 kg (145 lb 4.5 oz) Discharge Disposition: Discharge to home or self care Code Status at Discharge: full Discharge Instructions: Activity Instructions Discharge activity: Resume normal activity Other Instructions Ambulatory referral to Home Health Service Line: Home Health Primary disciplines requested: Physical Therapy Secondary disciplines requested: Occupational Therapy Home Health Services: Therapy to Eval/Tx Therapy instructions: Evaluation/treatment Requested Start of Care Date: 24-48 hours Physician to follow patient's care (the person listed here will be responsible for signing ongoing orders): PCP I attest that I or another qualified licensed provider saw the patient 90 days prior to or 30 days post admission and this face to face encounter meets the necessary Home Health requirements. The face to face encounter occurred on (date): 01/06/2024 The encounter with the patient was in whole, or in part, for the following medical condition, whichis the primary reason for home health care. (List medical condition): Alzheimers. resuming previous care I certify that, based on my findings, the following services are medically necessary skilled home health services: Therapy to Eval/Tx Clinical findings that support the need for home care: Medical condition requiring skilled assessment/education I certify that my clinical findings support patient's homebound status. Homebound criteria met because: Poor endurance Call provider for: Temperature -Temperature greater than 101 degrees F Call provider for: difficulty breathing or chest pain Call provider for: persistent nausea or vomiting Call provider for: severe uncontrolled pain Call provider for: headache, visual disturbances, weakness and speech changes Special Instructions You were admitted for a UTI. This will be treated with 3 days of antibiotics. You should continue taking blood pressure meds as listed in this discharge packet. Take other medications as prescribed. Follow up with your PCP as scheduled. Continue outpatient dialysis tomorrow as scheduled. Discharge Medications: Current Medications TAKE these medications acetaminophen 500 mg capsule Take 2 capsules (1,000 mg total) by mouth 3 (three) times a day as needed for mild pain (pain scale 1-4) aspirin 81 mg chewable tablet atorvastatin 40 mg tablet Take 1 tablet (40 mg total) by mouth nightly Commonly known as: LIPITOR benztropine 2 mg tablet Take 1 tablet (2 mg total) by mouth daily Commonly known as: COGENTIN calcium acetate(phosphat bind) 667 mg capsule TAKE 1 CAPSULE(667 MG) BY MOUTH THREE TIMES DAILY WITH MEALS Commonly known as: PHOSLO carvediloL 3.125 mg tablet Take 1 tablet (3.125 mg total) by mouth 2 (two) times a day with meals Commonly known as: COREG docusate sodium 100 mg capsule Take 1 capsule (100 mg total) by mouth every 12 (twelve) hours Commonly known as: COLACE Easy Touch 32 gauge x 5/32 needle USE DIRECTED FOUR TIMES DAILY Generic drug: pen needle, diabetic famotidine 10 mg tablet Take 1 tablet (10 mg total) by mouth daily Commonly known as: PEPCID ferrous sulfate 325 mg (65 mg of elemental iron) tablet Take 1 tablet (65 mg of elemental iron total) by mouth 2 (two) times a day flash glucose scanning reader [facility] Use Madhav 3 reader to scan Madhav 3 sensor fluticasone propionate 50 mcg/actuation nasal spray Administer 2 sprays into each nostril daily as needed for rhinitis Commonly known as: FLONASE FreeStyle Madhav 2 Sensor kit Use to continually monitor glucose, change every 14 days Generic drug: flash glucose sensor FreeStyle Madhav 3 [place] [facility] Use Madhav 3 reader to scan Madhav 3 sensor Generic drug: blood-glucose meter,continuous FreeStyle Madhav 3 Sensor device Use for continuous glucose monitoring. Change sensor every 14 days Generic drug: blood-glucose sensor hydrALAZINE 25 mg tablet Take 2 tablets (50 mg total) by mouth 3 (three) times a day For: high blood pressure Commonly known as: APRESOLINE insulin glargine 100 unit/mL (3 mL) pen for injection Inject 18 Units under the skin nightly Commonly known as: LANTUS, BASAGLAR, SEMGLEE insulin lispro 100 unit/mL vial for injection Inject 4 Units under the skin 3 (three) times a day before meals Gets 4 units at baseline then 1 unit for every 50 over 150 Commonly known as: HumaLOG, ADMELOG lidocaine 4 % adhesive patch,medicated Place 1 patch on the skin daily as needed to lower back Commonly known as: ASPERCREME linezolid 600 mg tablet Take 1 tablet (600 mg total) by mouth 2 (two) times a day for 2 days For: Urinary Tract/Genitourinary Infection Commonly known as: ZYVOX polyethylene glycol 17 gram/dose bulk powder Take 17 g by mouth daily as needed (Constipation) Commonly known as: MIRALAX risperiDONE 2 mg tablet Take 1 tablet (2 mg total) by mouth nightly Commonly known as: RisperDAL traMADoL 25 mg tablet Take 1 tablet (25 mg total) by mouth every 8 (eight) hours as needed for pain for up to 7 days Commonly known as: ULTRAM ASK your doctor about these medications diclofenac sodium 1 % gel Apply 4 g topically 3 (three) times a day Commonly known as: VOLTAREN NIFEdipine 60 mg 24 hr tablet Take 1 tablet (60 mg total) by mouth daily Commonly known as: PROCARDIA XL/ADALAT CC Outpatient Follow-Up: Future Appointments Date Time Provider Department Center 01/08/2024 11:00 AM Nicolas Burgess RN [facility] None 01/08/2024 To Be Determined Sarahy Feliciano DIRECTOR MEDICAL SURGICAL [facility] None 01/11/2024 To Be Determined Nicolas Burgess RN [place] None 01/11/2024 3:30 PM Cherelle Corcoran MD PCP [facility] 01/14/2024 To Be Determined Sarahy Feliciano DIRECTOR MEDICAL SURGICAL [facility] None 01/15/2024 To Be Determined Nicolas Burgess RN [facility] None 01/20/2024 To Be Determined Nicolas Burgess RN [facility] None 01/21/2024 To Be Determined Sarahy Feliciano PTA [facility] None 01/22/2024 11:45 AM [facility] 1 MAMMO RM 1 [id number] BRST [facility] 1 01/22/2024 12:30 PM [facility] 1 DEXA RM MHEMOB1 BRST [facility] 1 01/26/2024 11:00 AM Kayden Iyer, PT [id number] OPPT [facility] 1 01/27/2024 To Be Determined Nicolas Burgess RN [facility] None 01/28/2024 To Be Determined Yamilka Hoang, LULI [facility] None 02/01/2024 4:30 PM Pippa Troy, [employer]CHOOL [employer] MON[employer]OR EML BW4 HEATH IM EML 02/03/2024 To Be Determined Nicolas Burgess RN [facility] None 02/04/2024 3:15 PM Cherelle Corcoran MD PCP [facility] PC 02/05/2024 9:30 AM Perico Raphael PA [facility] OS 340 MH Specialty 02/15/2024 1:[address] [facility] Diab Ed [facility] Main 03/16/2024 2:15 PM Adryan Swenson MD [facility] PS[facility] Specialty Contact Information for Follow-ups [facility] Home Care Services Specialty: Home Health and Hospice [address] [address] Next Steps: Follow up Questions: Service Line: Home Health Primary disciplines requested: Physical Therapy Secondary disciplines requested: Occupational Therapy Home Health Services: Therapy to Eval/Tx Therapy instructions: Evaluation/treatment Requested Start of Care Date: 24-48 hours Physician to follow patient's care (the person listed here will be responsible for signing ongoing orders): PCP I attest that I or another qualified licensed provider saw the patient 90 days prior to or 30 days post admission and this face to face encounter meets the necessary Home Health requirements. The face to face encounter occurred on (date): 01/06/2024 The encounter with the patient was in whole, or in part, for the following medical condition, whichis the primary reason for home health care. (List medical condition): Alzheimers. resuming previous care I certify that, based on my findings, the following services are medically necessary skilled home health services: Therapy to Eval/Tx Clinical findings that support the need for home care: Medical condition requiring skilled assessment/education I certify that my clinical findings support patient's homebound status. Homebound criteria met because: Poor endurance Referral Status: Pending Authorization Cherelle Corcoran MD Specialty: Family Medicine [address] [place] [address] Next Steps: Follow up Cosigned by Karri Kirkpatrick MD at 01/06/2024 5:48 PM CDT documented in this encounter Discharge Instructions * Attachments The following attachments cannot be sent through Care Everywhere. * Linezolid (By mouth) (Swazi) documented in this encounter Medications at Time of Discharge acetaminophen 500 mg capsule Take 2 capsules (1,000 mg total) by mouth 3 (three) times a day as needed for mild pain (pain scale 1-4) atorvastatin (LIPITOR) 40 mg tablet Take 1 tablet (40 mg total) by mouth nightly 30 tablet 11 01/06/2024 blood-glucose sensor (FreeStyle Madhav 3 Sensor) deviceIndication [...] as needed for rhinitis FreeStyle Madhav 3 Beverly misc Use Madhav 3 reader to scan [...] daily as needed (Constipation) 595 g 10/22/2023 linezolid (ZYVOX) 600 mg tabletIndication s:Urinary Tract/Genitourin ariel Infection Take 1 tablet (600 mg total) by mouth 2 (two) times a day for 2 days 4 tablet 01/06/2024 4 aspirin 81 mg chewable tablet Take 1 tablet (81 mg total) by mouth daily 12/28/2023 4 benztropine (COGENTIN) 2 mg tablet Take [...] (10 mg total) by mouth daily 4 FeroSuL 325 mg (65 mg iron) tablet Take 1 tablet (325 mg total) by mouth daily with breakfast 01/03/2024 4 ferrous sulfate 325 mg (65 mg [...] hydrALAZINE (APRESOLINE) 25 mg tabletIndication s:hypertension Take 2 tablets (50 mg total) by mouth 3 (three) times a day 180 tablet 01/06/2024 4 NIFEdipine (PROCARDIA XL/ADALAT CC) 60 mg [...] Refills Last Filled Start Date End Date atorvastatin (LIPITOR) 40 mg tablet Take 1 tablet (40 mg total) by mouth nightly 30 tablet 11 01/06/2024 5 linezolid (ZYVOX) 600 mg tabletIndications: Urinary Tract/Genitourinar y Infection Take 1 tablet (600 mg total) by mouth 2 (two) times a day for 2 days 4 tablet 01/06/2024 4 linezolid (ZYVOX) 600 mg tabletIndications: Urinary Tract/Genitourinar y Infection Take 1 tablet (600 mg total) by mouth 2 (two) times a day for 2 days 4 tablet 01/06/2024 4 linezolid (ZYVOX) 600 mg tabletIndications: Urinary Tract/Genitourinar y Infection Take 1 tablet (600 mg total) by mouth 2 (two) times a day for 2 days 4 tablet 01/06/2024 4 hydrALAZINE (APRESOLINE) 25 mg tabletIndications: hypertension Take 2 tablets (50 mg total) by mouth 3 (three) times a day 180 tablet 01/06/2024 4 linezolid (ZYVOX) 600 mg tabletIndications: Urinary Tract/Genitourinar y Infection Take 1 tablet (600 mg total) by mouth 2 (two) times a day for 2 days 4 tablet 01/06/2024 4 documented in this encounter Discharge Disposition Disposition Code Departure Means Destination Comment s Discharge to home or self care documented in this encounter Progress Notes * Phil Salgado RN - 01/06/2024 2:47 PM CDT 01/06/24 1044 Discharge Summary Discharge Disposition Private residence Equipment/Provider Needs No Home Needs Identified Anticipated discharge level of care Private residence Actual Discharge Level of Care Private residence Does Actual Level of Care Match Care Team Recommendation? Yes Post Acute Care Plan Home Care Services N/A OP Services N/A DME Resume Durable Medical Equipment Diabetic supplies;Other (Comment);Shower chair;Walker (wheeled) (bed rail) Post Acute Care Facility N/A Discharge Additional Assistance Does the patient need discharge transport arranged? No (daughter to transport) Post Discharge Care Provider Post Discharge Care Plan DC Summary has been faxed to next level of care provider (see Follow Up Providers) Per medical team, patient is medically stable for discharge at this time. Follow up appointment hasbeen scheduled for 01/11/24. Transportation will be provided by daughter. Patient and/or family are agreeable with the plan. If any further discharge needs arise, please contact the covering case reviewer. * Kiley Nye NP - 01/06/2024 12:54 PM CDT Daily Progress Note Division of Hospital Medicine Name: Barbara Chakraborty : 1950 Today's Date: January 06, 2024 Age: 73 y.o. female Admission: 01/05/2024 Bed: [id number] LOS: 0 days Subjective Interval History Pt feeling well today. Voiding w/o issue. Plan for 3 days PO linezolid; $0 copay. Plan for short session HD today since missed session yesterday. Plan for d/c after HD Objective Scheduled Meds PRN Meds Infusions aspirin, 81 mg, oral, Daily benztropine, 2 mg, oral, Daily carvediloL, 3.125 mg, oral, BID with meals (bkfst, dinner) famotidine, 10 mg, oral, Daily heparin, 5,000 Units, subcutaneous, Q8H SOL hydrALAZINE, 50 mg, oral, TID insulin glargine, 10 Units, subcutaneous, Nightly insulin lispro, 0-4 Units, subcutaneous, Nightly insulin lispro, 0-5 Units, subcutaneous, TID with meals insulin lispro, 0.05 Units/kg, subcutaneous, TID with meals linezolid, 600 mg, oral, BID NIFEdipine, 60 mg, oral, Daily risperiDONE, 2 mg, oral, Nightly acetaminophen, 1,000 mg, oral, Q6H PRN dextrose, 15 g, oral, Q15 Min PRN OR dextrose, 250 mL, intravenous, Q15 Min PRN glucagon, 1 mg, intramuscular, Q30 Min PRN traMADoL, 25 mg, oral, Q8H PRN Vitals Most Recent Vitals: T 36.7 ??C (98.1 ??F), HR 79, BP 151/61, RR 12, SpO2 100 %. 24hr Min/Max: Temp Min: 36.4 ??C (97.5 ??F) Max: 36.9 ??C (98.4 ??F) Pulse Min: 76 Max: 103 BP Min: 150/58 Max: 205/80 Resp Min: 12 Max: 18 SpO2 Min: 98 % Max: 100 % Intake/Output Summary (Last 24 hours) at 01/06/2024 1254 Last data filed at 01/06/2024 0000 Gross per 24 hour Intake 118 ml Output -- Net 118 ml Physical Exam Constitutional: NAD, well developed Eyes: EOMI, anicteric ENT: NCAT, oropharynx normal, moist mucus membranes Lungs: Clear to auscultation in all lung cavanaugh, unlabored, trachea midline Cardiovascular: RRR, normal S1 and S2 GI: Soft, non-tender, non-distended, bowel sounds + Skin: No new rashes, lesions or bruises Extremities: Normal without edema or cyanosis Neurologic: AOx4, CNII-XII intact, normal strength and sensation Psychiatric: Normal affect and mood I have reviewed the patient's vital signs. Lines, Drains, Airways Peripheral IV 01/05/24 20 G Right Antecubital (Active) Hemodialysis Cath Double 10/15/23 Tunneled catheter Right Internal Jugular (Active) Labs/Diagnostic Review Na 143 Cl 105 BUN 62 K 4.2 CO2 27 Cr 4.50 Mg -, G AST 22 ALT 33 Alk Phos 121 Ca 9.5 TP - Alb 3.9 Total Bili: <0.2 Direct Bili: - \ Hgb 7.9 / WBC 11.4 -------- Plt 356 / MCV 97.6 \ INR - (Labs above are the most recent result obtained in the last 24 hours. For additional labs/trends, see Epic.) I have reviewed the laboratory results. Imaging Review No results found. Assessment/Plan * 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 Assessment & Plan Patient with urine culture for fatigue/malaise on 12/28 ED visit with VRE isolated. Patient is minimally symptomatic though does report some urinary frequency and has elevated WBC. She still makes urine despite ESRD. - Bcx NGTD -transition from IV linezolid to PO linezolid; plan for 3 day course ESRD on hemodialysis ([facility]) ([facility]) Assessment & Plan History of ESRD on HD e//Sat. Missed HD session on 01/04 due to ED calling patient in. BMP without significant electrolyte abnormalities, patient does not appear hypervolemic, but BP is elevated (did miss taking all antihypertensives this AM). No urgent/emergent need for dialysis at this time. -nephrology c/s for HD; plan for short session today -BMP, phos ordered daily Chronic diastolic congestive heart failure (CMS/HCC) ([facility]) Assessment & Plan Patient euvolemic at this time. -continue coreg, nifedipine, hydralazine for BP control -nephrology c/s for HD Late onset Alzheimer's dementia without behavioral disturbance ([facility]) Assessment & Plan Follows with neurology. -continue risperidone 2mg QHS -continue benztropine 2mg daily Gastroesophageal reflux disease without esophagitis Assessment & Plan -continue famotidine Uncontrolled hypertension Assessment & Plan Patient with uncontrolled hypertension in ED. Patient has issues with labile BP with hypertension on non-HD days and episodes of hypotension and syncopal episode x1 with HD. Most recent admission at [facility] with initiation of hydralazine and nifedipine in addition to existing carvedilol with modest improvement in BP control as outpatient though some frustration by patient and family regarding protocol of holding antihypertensives on HD days causing elevated readings at home. Currentlypatient asymptomatic. -restart home nifedipine XR 60 mg, hydralazine 25 mg TID, carvedilol 3.125 mg BID -can uptitrate carvedilol/hydralazine as tolerated during admission Type 2 diabetes mellitus with diabetic neuropathy, with long-term current use of insulin ([facility]) Assessment & Plan History of DM2 on insulin therapy. Patient reportedly with good BG control as outpatient per daughter with readings 120-150 mg/dl. BG elevated in ED as patient did not take any meds including insulinprior to presentation. -dose reduce to glargine 10 units QHS, lispro 3 units TIDAC + LDSSI -consistent carbohydrate diet Code status : Full Code Diet : Adult Diet Restricted; Consistent Carbohydrate PT/OT Dispo Rec : / Supplementary Attestation My total encounter time on this service date was 35 minutes which was spent performing a [id number] encounter and personally completing the provider-level activities documented in the note. This includes time spent prior to the visit and after the visit in direct care of the patient. This time does not include time spent in any separately reportable services. Kiley Nye NP Cosigned by Karri Kirkpatrick MD at 01/06/2024 5:46 PM CDT Associated attestation - Karri Kirkpatrick MD - 01/06/2024 5:46 PM CDT Attending Documentation I have seen and examined the patient on 01/06/2024 in conjunction with the advanced triage clinician and I agree with the documentation and care plan in this note. Supplementary Attestation My total encounter time on this service date was 35 minutes which was spent performing a [id number] encounter and personally completing the provider-level activities documented in the note. This includes time spent prior to the visit and after the visit in direct care of the patient. This time does not include time spent in any separately reportable services. Karri Kirkpatrick MD * Kita Mcguire, PT - 01/06/2024 9:43 AM CDT Physical Therapy 01/06/24 0943 General PT Missed Visit Reason Patient declined (Patient requesting more time for breakfast.) documented in this encounter H&P Notes * Kojo Mckeon MD - 01/05/2024 10:11 PM CDT History and Physical Division of Hospital Medicine Name: Barbara Chakraborty : 1950 Today's Date: January 05, 2024 Age: 73 y.o. female Admit Date: 01/05/2024 Bed: [facility] ED2-33/ED2-33 LOS: 0 days Subjective HPI Barbara Chakraborty is a 73 y.o. female with PMH ESRD on iHD, diastolic HF, T2DM, HTN, schizoaffective disorder, alzheimer's diease who presents for further management of VRE bacteruria. Patient at facility reportedly was doing OK after prior hospital admission, though was still havingissues with BP control after initiation of nifedipine and hydralazine (Daughter states that she wasfollowing antihypertensive recs as per d/c recs from [facility] with holding antihypertensives until after HD on HD days). Issue largely due to patient being hypertensive on dialysis days though no reported hypotensive episodes or syncopal episodes similar to prior episodes with HD. Patient did have continued L shoulder pain from injury from 11/2023 which prompted ED visit on 12/28. At that time, due to reported fatigue and malaise, patient had UA prior to discharge. UA appeared dirty and culture has now grown VRE. After discharge, patient and daughter mention no significant complaints except for mild dysuria and some increased urinary frequency. Denies malodorous urine, hematuria, flank pain. BG readings have been well controlled at this time. Also mentions no fevers/chills, nausea/vomiting/diarrhea, malaise, fatigue at this time. Due to positive culture, she was called to return to ED for further workup. On arrival, hypertensive, afebrile, satting well on RA. Patient had missed HD today as she went straight to ED after called back and also did not take antihypertensives. Received blood cx x2 which are pending, BMP without electrolyte abnormalities or worsening acidosis, Hgb 7.9, WBC elevated 11.4. P atient started on IV linezolid given susceptibilities of VRE isolate from urine cx on 12/28. Past Medical History Past Medical History: Diagnosis Date Anemia Arthritis CHF (congestive heart failure) ([facility]) ([facility]) CKD (chronic kidney disease) stage V requiring chronic dialysis ([facility]) Dementia ([facility]) Depression Diabetic neuropathy ([facility]) GERD (gastroesophageal reflux disease) HL (hearing loss) Hyperlipidemia Hypertension Movement disorder Osteomyelitis ([facility]) Rotator cuff tear, left Schizophrenia ([facility]) Type 2 diabetes mellitus ([facility]) Past Surgical History: Procedure Laterality Date SECTION Right right foot EYE SURGERY cataracts FLUORO GUIDED INJECTION SHOULDER LEFT Left 12/18/2023 TOE AMPUTATION Right 01/06/2020 4th toe amp/ foot debridement/ Dr. Anat Pelayo TUNNELED LINE PLACEMENT > 5 YEARS N/A 10/15/2023 Current Facility-Administered Medications Medication Dose Route Frequency Provider Last Rate Last Admin acetaminophen (TYLENOL) tablet 1,000 mg 1,000 mg oral Q6H PRN Hector Babcock MD benztropine (COGENTIN) tablet 2 mg 2 mg oral Daily Hector Babcock MD 2 mg at 01/05/242019 carvediloL (COREG) tablet 3.125 mg 3.125 mg oral BID with meals (bkfst, dinner) Hector Babcock MD 3.125 mg at 01/05/242019 dextrose gel in packet 15 g 15 g oral Q15 Min PRN Hector Babcock MD Or dextrose (D10W) 10% bolus 250 mL 250 mL intravenous Q15 Min PRN Hector Babcock MD glucagon injection 1 mg 1 mg intramuscular Q30 Min PRN Hector Babcock MD hydrALAZINE (APRESOLINE) tablet 25 mg 25 mg oral TID Hector Babcock MD 25 mg at 01/05/242019 insulin glargine (LANTUS, SEMGLEE) 100 unit/mL injection 12 Units 12 Units subcutaneous Nightly Hector Babcock MD 12 Units at 01/05/242126 insulin lispro (HumaLOG, ADMELOG) 100 unit/mL injection 0-4 Units 0-4 Units subcutaneous Nightly Hector Babcock MD 2 Units at 01/05/242127 insulin lispro (HumaLOG, ADMELOG) 100 unit/mL injection 0-5 Units 0-5 Units subcutaneous TID with meals Hector Babcock MD insulin lispro (HumaLOG, ADMELOG) 100 unit/mL injection 2 Units 2 Units subcutaneous TID with mealsHector Babcock MD risperiDONE (RisperDAL) tablet 2 mg 2 mg oral Nightly Hector Babcock MD 2 mg at 01/05/242019 traMADoL (ULTRAM) tablet 25 mg 25 mg oral Q8H PRN Hector Babcock MD 25 mg at 01/05/242018 Current Outpatient Medications Medication Sig Dispense Refill [...] times a day flash glucose scanning reader [facility] [place] Use Madhav 3 reader to scan Madhav 3 sensor 1 each 0 flash glucose sensor (FreeStyle Madhav 2 Sensor) kit Use to continually monitor glucose, change every 14 days 6 kit 3 fluticasone propionate (FLONASE) 50 mcg/actuation nasal spray Administer 2 sprays into each nostrildaily as needed for rhinitis FreeStyle Madhav 3 [facility] [place] Use Madhav 3 [...] (Easy Touch) 32 gauge x 32 needle USE DIRECTED FOUR TIMES DAILY 100 [...] to 7 days 20 tablet 0 No Known Allergies Social and Family History Social History Tobacco Use Smoking status: Never [...] Father Diabetes Sister Diabetes Sister Diabetes Brother Objective Vitals Most Recent Vitals: T 36.7 ??C (98.1 ??F), HR 84, BP 167/75, RR 18, SpO2 100 %. 24hr Min/Max: Temp Min: 36.3 ??C (97.3 ??F) Max: 36.7 ??C (98.1 ??F) Pulse Min: 81 Max: 103 BP Min: 167/75 Max: 205/80 Resp Min: 16 Max: 18 SpO2 Min: 98 % Max: 100 % No intake or output data in the 24 hours ending 01/05/24 0075 Physical Exam General: WDWN, sitting up in NAD. HENT: NC/AT, MMM, OP clear. Eyes: PERRL, EOMI, anicteric sclera. Neck: Supple, no cervical or supraclavicular LAD, no thyromegaly or masses. Chest: TDC without erythema/induration/drainage at site CV: RRR with normal S1 and S2, no m/g/r. Lungs: CTAB with no wheezes, rales, or rhonchi. Abd: Soft, NTND, no HSM, bowel sounds present, no suprapubic or CVA tenderness to palpation Ext: WWP, no cyanosis or clubbing, no LE edema. Skin: No rashes or lesions noted on exposed skin. Neuro: A&O x 3, CN II-XII grossly intact, SILT in all 4 extremities, strength 5/5 throughout. Psych: Appropriate affect, euthymic mood. Lines, Drains, Airways Peripheral IV 01/05/24 20 G Right Antecubital (Active) Hemodialysis Cath Double 10/15/23 Tunneled catheter Right Internal Jugular (Active) Labs/Diagnostic Review Na 143 Cl 105 BUN 62 K 4.2 CO2 27 Cr 4.50 Mg -, G AST 22 ALT 33 Alk Phos 121 Ca 9.5 TP - Alb 3.9 Total Bili: <0.2 Direct Bili: - \ Hgb 7.9 / WBC 11.4 -------- Plt 356 / MCV 97.6 \ INR - (Labs above are the most recent result obtained in the last 24 hours. For additional labs/trends, see Epic.) I have reviewed the laboratory results. Imaging Review No results found. Assessment/Plan * 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 Assessment & Plan Patient with urine culture for fatigue/malaise on 12/28 ED visit with VRE isolated. Patient is minimally symptomatic though does report some urinary frequency and has elevated WBC. She still makes urine despite ESRD. -f/u blood cultures from ED -transition from IV linezolid to PO linezolid Uncontrolled hypertension Assessment & Plan Patient with uncontrolled hypertension in ED. Patient has issues with labile BP with hypertension on non-HD days and episodes of hypotension and syncopal episode x1 with HD. Most recent admission at [facility] with initiation of hydralazine and nifedipine in addition to existing carvedilol with modest improvement in BP control as outpatient though some frustration by patient and family regarding protocol of holding antihypertensives on HD days causing elevated readings at home. Currentlypatient asymptomatic. -restart home nifedipine XR 60 mg, hydralazine 25 mg TID, carvedilol 3.125 mg BID -can uptitrate carvedilol/hydralazine as tolerated during admission ESRD on hemodialysis ([facility]) ([facility]) Assessment & Plan History of ESRD on HD Tu//Sat. Missed HD session on 01/04 due to ED calling patient in. BMP without significant electrolyte abnormalities, patient does not appear hypervolemic, but BP is elevated (did miss taking all antihypertensives this AM). No urgent/emergent need for dialysis at this time. -nephrology c/s in AM for HD -BMP, phos ordered daily Chronic diastolic congestive heart failure (CMS/HCC) ([facility]) Assessment & Plan Patient euvolemic at this time. -continue coreg, nifedipine, hydralazine for BP control -nephrology c/s for HD Late onset Alzheimer's dementia without behavioral disturbance ([facility]) Assessment & Plan Follows with neurology. -continue risperidone 2mg QHS -continue benztropine 2mg daily Gastroesophageal reflux disease without esophagitis Assessment & Plan -continue famotidine Type 2 diabetes mellitus with diabetic neuropathy, with long-term current use of insulin ([facility]) Assessment & Plan History of DM2 on insulin therapy. Patient reportedly with good BG control as outpatient per daughter with readings 120-150 mg/dl. BG elevated in ED as patient did not take any meds including insulinprior to presentation. -dose reduce to glargine 10 units QHS, lispro 3 units TIDAC + LDSSI -consistent carbohydrate diet Code status : Prior Diet : Adult Diet Restricted; Consistent Carbohydrate Supplementary Attestation My total encounter time on this service date was 80 minutes which was spent performing a ybfw-tj-[id number] encounter and personally completing the provider-level activities documented in the note. This includes time spent prior to the visit and after the visit in direct care of the patient. This time does not include time spent in any separately reportable services. Kojo Mckeon MD documented in this encounter Consult Notes * Sean Drake NP - 01/06/2024 10:34 AM CDTAssociated Order(s): IP CONSULT TO NEPHROLOGY NEPHROLOGY INITIAL CONSULTATION NOTE REASON FOR CONSULT: on HD TRS; missed session yesterday REQUESTING PROVIDER: Wilner Lopez MD CHIEF COMPLAINT/REASON FOR ADMISSION: HPI: Patient is 73 y.o. year old, female with a history of schizoaffective disorder, alzheimer's diease, DM, HTN, HF, ESRD TTS who presented to the hospital with VRE bacteruria. Renal consultation isrequested for the management of dialysis. Plan is to provide a short HD treatment today since the pt missed HD yesterday. PAST MEDICAL HISTORY Past Medical History: Diagnosis Date Anemia Arthritis CHF (congestive heart failure) ([facility]/HCC) (HCC) CKD (chronic kidney disease) stage V requiring chronic dialysis (HCC) Dementia (HCC) Depression Diabetic neuropathy (HCC) GERD (gastroesophageal reflux disease) HL (hearing loss) Hyperlipidemia Hypertension Movement disorder Osteomyelitis (HCC) Rotator cuff tear, left Schizophrenia ([facility]) Type 2 diabetes mellitus ([facility]) Past Surgical History: Procedure Laterality Date SECTION Right right foot EYE SURGERY cataracts FLUORO GUIDED INJECTION SHOULDER LEFT Left 12/18/2023 TOE AMPUTATION Right 01/06/2020 4th toe amp/ foot debridement/ Dr. Anat Pelayo TUNNELED LINE PLACEMENT > 5 YEARS N/A 10/15/2023 ESRD Dialysis History: Dialysis History: In center hemodialysis with tunneled catheter access. Dialysis Start Date: Dialysis Days: Dialysis Center: [facility] Outpatient motel maid: Dialysis Medicine: Dialysis Prescription: Time: 3.25hrs Medications Prior to Admission Medication Sig Dispense [...] times a day flash glucose scanning reader [facility] [place] Use Madhav 3 reader to scan Madhav 3 sensor 1 each 0 flash glucose sensor (FreeStyle Madhav 2 Sensor) kit Use to continually monitor glucose, change every 14 days 6 kit 3 fluticasone propionate (FLONASE) 50 mcg/actuation nasal spray Administer 2 sprays into each nostrildaily as needed for rhinitis FreeStyle Madhav 3 [facility] [place] Use Madhav 3 [...] up to 7 days 20 tablet 0 SCHEDULED MEDS CONTINUOUS MEDS aspirin, 81 mg, oral, Daily benztropine, 2 mg, oral, Daily carvediloL, 3.125 mg, oral, BID with meals (bkfst, dinner) famotidine, 10 mg, oral, Daily heparin, 5,000 Units, subcutaneous, Q8H SOL hydrALAZINE, 50 mg, oral, TID insulin glargine, 10 Units, subcutaneous, Nightly insulin lispro, 0-4 Units, subcutaneous, Nightly insulin lispro, 0-5 Units, subcutaneous, TID with meals insulin lispro, 0.05 Units/kg, subcutaneous, TID with meals linezolid, 600 mg, oral, BID NIFEdipine, 60 mg, oral, Daily risperiDONE, 2 mg, oral, Nightly ALLERGIES No Known Allergies SOCIAL AND FAMILY HISTORY Social History Socioeconomic History Marital status: Spouse name: Not on file Number of children: Not on file Years of education: Not on file Highest education level: Not on file Occupational History Not on file Tobacco Use Smoking status: Never Smokeless tobacco: Never Substance and Sexual Activity Alcohol use: Not Currently Drug use: Never Sexual activity: Not Currently Partners: Male Other Topics Concern Not on file Social History Narrative Originally From [place] Grew up with her mom and dad. 12th grade - graduated. [employer]. [employer] - none. [employer]. I never worked. Single. Social Determinants of Health Financial Resource Strain: Low Risk (12/21/2023) Overall Financial Resource Strain (CARDIA) Difficulty of Paying Living Expenses: Not very hard Food Insecurity: No Food Insecurity (12/21/2023) Hunger Vital Sign Worried About Running Out of Food in the Last Year: Never true Ran Out of Food in the Last Year: Never true Transportation Needs: No Transportation Needs (12/28/2023) OASIS A1250: Transportation Lack of Transportation (Medical): No Lack of Transportation (Non-Medical): No Patient Unable or Declines to Respond: No Physical Activity: Not on file Stress: Not on file Social Connections: Feeling Socially Integrated (12/28/2023) OASIS D0700: Social Isolation Frequency of experiencing loneliness or isolation: Never Recent Concern: Social Connections - Moderately Isolated (12/21/2023) Social Connection and Isolation Panel [NHANES] Frequency of Communication with Friends and Family: More than three times a week Frequency of Social Gatherings with Friends and Family: More than three times a week Attends Advent Services: More than 4 times per year Active Member of Clubs or Organizations: No Attends Club or Organization Meetings: Never Marital Status: Intimate Partner Violence: Not on file Housing Stability: Low Risk (12/21/2023) Housing Stability Vital Sign Unable to Pay for Housing in the Last Year: No Number of Times Moved in the Last Year: 0 Homeless in the Last Year: No Family History Problem Relation Age of Onset Diabetes Mother Heart disease Mother Kidney disease Mother Stomach cancer Father Alcohol abuse Father Diabetes Sister Diabetes Sister Diabetes Brother REVIEW OF SYSTEMS: As per HPI. All other systems are negative. PHYSICAL EXAM: VITAL SIGNS: BP 151/61 Pulse 79 Temp 36.7 ??C (98.1 ??F) Resp 12 Ht 157.5 cm (5' 2 ) Wt 65.9 kg (145 lb 4.5 oz) SpO2 100% BMI 26.57 kg/m?? Temp: [36.4 ??C (97.5 ??F)-36.9 ??C (98.4 ??F)] 36.7 ??C (98.1 ??F) Pulse: [76-103] 79 BP: (150-205)/(51-97) 151/61 Resp: [12-18] 12 SpO2: [98 %-100 %] 100 % General: well appearance, not in distress, vitals as above HEENT: AT, normocephalic, anicteric Neck: supple CVS: S1, S2 present no murmur noted Respiratory: Bilateral equal air entry, with vesicular breathing, no added sounds. Abdomen: Soft, lax not tender with positive bowel sounds. Neurology: Alert awake and oriented x2 Extremity: No lower extremity edema. Skin: intact, no rash or lesions noted Psych: cooperative, calm Dialysis access: Right IJ dialysis catheter with no swelling or erythema. I/O last 2 completed shifts: In: 118 [P.O.:118] Out: - LABORATORY DATA Recent Labs Lab Units 01/05/242005 WBC K/cumm 11.4* HEMOGLOBIN g/dL 7.9* PLATELETS K/cumm 356 Recent Labs Lab Units 01/05/242005 SODIUM mmol/L 143 POTASSIUM PLASMA mmol/L 4.2 CHLORIDE mmol/L 105 CO2 mmol/L 27 BUN SERUM mg/dL 62* CREATININE mg/dL 4.50* CALCIUM mg/dL 9.5 PHOSPHORUS PLASMA mg/dL 2.9 Lab Results Component Value Date PTH 71 (H) 01/23/2023 CALCIUM 9.5 01/05/2024 PHOS 2.9 01/05/2024 Lab Results Component Value Date IRON 56 06/30/2023 TIBC 180 (L) 06/30/2023 TRANSFERSAT 31 06/30/2023 FERRITIN 645 (H) 12/21/2022 RADIOLOGY No valid procedures specified. No valid procedures specified. No valid procedures specified. DIAGNOSTIC DATA: IMPRESSION AND RECOMMENDATION: ESRD Pt schedule is TTS Missed HD yesterday HD today goal 1L off Anemia of chronic kidney disease Monitor Hbg level=7.9 Transfuse RBCs <7.0 per primary team Renal osteodystrophy Monitor phos and calcium level Low phos renal diet Hypertension Monitor BP Currently not well controlled Continue home BP meds Bacteremia Pt recent urine culture was positive for VRE Pt sent to the [facility] for management Nephrology [employer] Sean Drake cell# [phone] (Thu - Thu 7am - 4pm) Please call senior sales operations analyst pager [phone] after 4pm, Thursday and Thursday Cosigned by Maritza Puri MD at 01/08/2024 10:34 AM CDT documented in this encounter Nursing Notes * Jesus Mcclendon RN - 01/06/2024 5:28 PM CDT HD treatment completed and tolerated well by the patient. Treatment duration 2.5 hours, UF goal 1 liter reached. CVC de-accessed, flushed with saline and locked with heparin. Report to Macey LAY via secure chat. Treatment parameters: spKt/v : 1.71 sURR : 82 eKt/v : 1.34 eURR : 74 * Jesus Mcclendon RN - 01/06/2024 2:50 PM CDT Patient arrived to unit via bed; placed on bedside monitors. Right IJ accessed, ports scrubbed and checked patency. HD started and continued to monitor. UF goal set at 10 liter for 2.5 hours treatment duration. Clinical Goals for Treatment: Patient will maintain hemodynamically stable. Prevent and manage potential signs and symptoms of hemodialysis complications. HD access sites, bloodlines and patient's face will be visible during dialysis. VS will be monitored and charted accordingly. * Dana Salgado RN - 01/06/2024 10:29 AM CDT Dialysis Report Reason for Admit - VRE Bacteremia Code status - Full Code Orientation status - A/O X1 Isolation - Contact VRE Are they on tele/ what's the rhythm - No Is Patient NPO- No Is patient on tube feeds- No (tube feeds will have to be held/paused and disconnected with travel) Diabetic/ next ACCU check due - AC/HS Are they on oxygen / L - No Any meds given (Abx, midodrine, BP meds?) -HTN Any blood pressures issues - See MAR for meds given this am On any drips - No (Amiodarone <5mg/min & stable; Nitroglycerin </= 50mcg; Diltiazem </=15mg/hr stable) Any meds to give with dialysis (Epo, ferrlecit, procrit, aranesp, Abx post treatment)- No Any pain issues/ Pain meds given - No Any other procedures pending - No Where is the dialysis access - Right IJ Catheter Any labs to draw -No Does patient need blood -No Does pt have current wt in Epic- Yes, What is it? 65.9 kg Is patient continent-Yes Is patient on AWAS precautions -No Is patient Elopement precautions- No Does the the patient have a trach? - No (No cuffed trachs on floor, unless it is deflated). Has patient been off the vent for 48 hours? -N/A What is the estimate discharge date? - Unknown Any concerns about patient - No Report received from - Daniella LAY Are you ok with secure chat- Yes documented in this encounter ED Notes * Larry Han - 01/05/2024 10:50 PM CDT Bed: ED4-09 Expected date: Expected time: Means of arrival: Comments: Held EM2-33 Larry Han 01/05/24 6610 * Hector Babcock MD - 01/05/2024 5:41 PM CDT HPI Chief Complaint Patient presents with ??? Urinary Problem 73F hx ESRD on iHD (TRS at [facility]), chronic diastolic HF, T2DM c/b peripheral neuropathy, HTN, schizoaffective disorder, Alzheimer's who presents after receiving follow-up call from 12/28 EDvisit with Ucx showing VRE Enterococcus that is Linezolid maribell. Pt daughter Ursula at bedside supplements the hx. Prior ED visit for acute on chronic L shoulder pain with dc and plan for otpt MRI. Pt hadgeneral fatigue wo urinary sxs at that time. Today, she is at baseline health. Denies fevers/chills, chest pain, abdominal pain, flank pain, n/v/d. No dysuria, frequency but intermittent chronic urgency. AOx2-3 at baseline. Otherwise, patient missed dialysis today due to time in ED-- dialysis from R chest wall port. History provided by: Relative and patient brilliandeer lopper used: No Patient History: Patient Active Problem List Diagnosis Date Noted ??? ESRD on dialysis (HCC) 12/20/2023 ??? Anemia of renal disease 12/20/2023 ??? Syncope, unspecified syncope type 12/19/2023 ??? Leukocytosis 12/19/2023 ??? Renal disorder ??? Pain in left arm 12/11/2023 ??? Arthropathy of left shoulder 12/11/2023 ??? CKD (chronic kidney disease) stage 4, GFR 15-29 ml/min ([facility]) ([facility]) 12/07/2023 ??? Tinnitus of both ears 11/04/2023 ??? Mixed conductive and sensorineural hearing loss of both ears 11/04/2023 ??? Dysfunction of both eustachian tubes 11/04/2023 ??? ESRD on hemodialysis ([facility]) ([facility]) 11/02/2023 ??? AMS (altered mental status) 10/30/2023 ??? Leg swelling 10/07/2023 ??? Bandemia 12/20/2022 ??? Shortness of breath 12/13/2022 ??? Acute on chronic diastolic congestive heart failure ([facility]) ([facility]) 12/06/2022 ??? Bibasilar consolidations 12/06/2022 ??? Movement disorder 12/06/2022 ??? Abnormal urinalysis 11/07/2022 ??? Anemia in chronic kidney disease, on chronic dialysis ([facility]) 10/10/2022 ??? Wheezing ??? Parkinsonism ([facility]) 08/14/2022 ??? Pulmonary nodule 11/16/2021 ??? Physical deconditioning 11/15/2021 ??? Toe necrosis ([facility]) ([facility]) 10/07/2021 ??? Volume overload 09/06/2021 ??? Retention of urine, unspecified 08/22/2021 ??? Unspecified osteoarthritis, unspecified site 08/22/2021 ??? Unsteadiness on feet 08/22/2021 ??? Weakness 08/22/2021 ??? Late onset Alzheimer's dementia without behavioral disturbance ([facility]) 08/19/2021 ??? Encounter for Medicare annual wellness exam 01/08/2021 ??? Schizoaffective disorder, bipolar type ([facility]) ([facility]) 10/10/2020 ??? Mixed hyperlipidemia 04/03/2020 ??? Iron deficiency anemia 04/02/2020 ??? Gastroesophageal reflux disease without esophagitis 04/02/2020 ??? History of amputation of toe ([facility]) ([facility]) 01/19/2020 ??? Primary hypertension 12/13/2019 ??? Type 2 diabetes mellitus with diabetic neuropathy, with long-term current use of insulin ([facility]) 08/30/2019 ??? Diabetic neuropathy (HCC) Past Medical History: Diagnosis Date ??? Anemia ??? Arthritis ??? CHF (congestive heart failure) (CMS/HCC) (HCC) ??? CKD (chronic kidney disease) stage V requiring chronic dialysis (HCC) ??? Dementia (HCC) ??? Depression ??? Diabetic neuropathy (HCC) ??? GERD (gastroesophageal reflux disease) ??? HL (hearing loss) ??? Hyperlipidemia ??? Hypertension ??? Movement disorder ??? Osteomyelitis (HCC) ??? Rotator cuff tear, left ??? Schizophrenia (HCC) ??? Type 2 diabetes mellitus (HCC) Past Surgical History: Procedure Laterality Date ??? SECTION Right right foot ??? EYE SURGERY cataracts ??? FLUORO GUIDED INJECTION SHOULDER LEFT Left 12/18/2023 ??? TOE AMPUTATION Right 01/06/2020 4th toe amp/ foot debridement/ Dr. Anat Pelayo ? ? TUNNELED LINE PLACEMENT > 5 YEARS N/A 10/15/2023 Family History Problem Relation Age of Onset ??? Diabetes Mother ??? Heart disease Mother ??? Kidney disease Mother ??? Stomach cancer Father ??? Alcohol abuse Father ??? Diabetes Sister ??? Diabetes Sister ??? Diabetes Brother Social History Tobacco Use ??? Smoking status: Never ??? Smokeless tobacco: Never Substance and Sexual Activity ??? Alcohol use: Not Currently ??? Drug use: Never ??? Sexual activity: Not Currently Partners: Male Social History Social History Narrative Originally From [place] Grew up with her mom and dad. 12th grade - graduated. [employer]. [employer] - none. [employer]. I never worked. Single. Review of Systems Review of Systems Constitutional: Negative for chills, fatigue and fever. Respiratory: Negative for shortness of breath. Cardiovascular: Negative for chest pain. Gastrointestinal: Negative for abdominal pain, nausea and vomiting. Genitourinary: Positive for urgency. Negative for decreased urine volume, dysuria, flank pain and frequency. Musculoskeletal: Negative for back pain and myalgias. Skin: Negative for wound. Neurological: Negative for light-headedness. Psychiatric/Behavioral: Negative for confusion. Physical Exam ED Triage Vitals Temp Pulse Resp BP SpO2 01/05/24 1316 01/05/24 1316 01/05/24 1316 01/05/24 1316 01/05/24 1316 36.4 ??C (97.5 ??F) 100 18 168/51 100 % Temp src Heart Rate Source Patient Position BP Location FiO2 (%) 01/05/24 1535 -- -- -- -- Oral Height Height Method Weight Weight Method -- -- -- -- Physical Exam Constitutional: Appearance: Normal appearance. HENT: Head: Normocephalic and atraumatic. Nose: Nose normal. Mouth/Throat: Mouth: Mucous membranes are moist. Pharynx: Oropharynx is clear. Eyes: Conjunctiva/sclera: Conjunctivae normal. Cardiovascular: Rate and Rhythm: Regular rhythm. Tachycardia present. Pulses: Normal pulses. Heart sounds: Normal heart sounds. Comments: R dialysis port in place Pulmonary: Effort: Pulmonary effort is normal. Breath sounds: Normal breath sounds. Abdominal: General: Abdomen is flat. Bowel sounds are normal. Palpations: Abdomen is soft. Musculoskeletal: Right lower leg: No edema. Left lower leg: No edema. Skin: General: Skin is warm and dry. Neurological: General: No focal deficit present. Mental Status: She is alert and oriented to person, place, and time. Comments: AOx2 (self, hospital, 2030) at baseline per daughter Psychiatric: Mood and Affect: Mood normal. Behavior: Behavior normal. MDM NIH Score Medical Decision Making 73F hx ESRD on iHD (TRS at [facility]), chronic diastolic HF, T2DM c/b peripheral neuropathy, HTN, schizoaffective disorder, Alzheimer's who presents after receiving follow-up call from 12/28 EDvisit with Ucx showing VRE Enterococcus that is Linezolid maribell. Overall, pt at baseline health but notably hypertensive with mild tachy on exam iso missed dialysis. Chronic intermittent urgency present today wo systemic sxs. DDx favor asymptomatic bacteruria v cystitis, less likely pyelonephritis. HTN iso missed home meds and dialysis. Anticipate medicine admit for Linezolid, possible dialysis session pending infectious and metabolic labs. Will tx empirically with Linezolid given high risk organism, co morbidities, presence of urgency and mild tachycardia. Will restart home PO meds, consider Nephro c/s this evening pending BMP. Amount and/or Complexity of Data Reviewed Labs: ordered. Details: CBC, CMP, Ucx Risk Prescription drug management. Attending Summary of Care ED Course as of 01/05/24 8434 Time: 01/04 1734 Comment: Patient called to ED with MDR UTI with susceptibility to linezolid By: Murphy Kaiser MD Time: 01/04 1819 Comment: Attending Note: This is a 73 y.o. female patient presents with positive ua/culture. Hx of esrd, //. Missed dialysis today. She has dm2 and chf, htn, schizoaffective. She was called back for positive urine culture. She does have some urinary urgency. On exam pleasant, nontoxic, afebrile, no resp distress, no cough, clear speech, abd soft nontender nondistended, no cva tenderness. No resp distress or SOB. Did miss today's dialysis. Check lytes for any emergent/urgent indications. Does not appear volume overloaded. Culture reviewed, resistant uti susceptible to linezolid. Will plan to treat given her reports of urinary urgency. By: Wilner Lopez MD Time: 01/04 2045 Comment: Mild leukocytosis and CMP wo urgent dialysis indications. Plan for Medicine admit with Nephro c/s for dialysis in AM By: Hector Babcock MD Time: 01/04 2323 Comment: I have assumed care of this patient: 73 yof presents with VRE, missed HD, called back for VRE. Awaiting admission. By: Robert Kaufman MD 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, Active Primary hypertension Hector Babcock MD Internal Medicine, PGY2 Sadiq, Hector Toth MD Resident 01/05/24 1841 Cosigned by Wilner Lopez MD at 01/05/2024 6:42 PM CDT Associated attestation - Wilner Lopez MD - 01/05/2024 6:42 PM CDT I have seen and examined the patient on 01/05/2024. I agree with the findings and plan of care as documented in the resident's note. * Azul Salcido RN - 01/05/2024 5:38 PM CDT Bed: 2[facility] Expected date: 01/05/24 Expected time: 10:32 AM Means of arrival: Car Comments: Azul Salcido RN 01/05/24 6498 * Tahmina Lepe RN - 01/05/2024 1:17 PM CDT Pt to ED, per daughter called back for IV antibiotics. Pt has a UTI, culture resulted on 01/08/24. Pt also reports pain to right shoulder. (This is chronic, seen last week in the ED for this, daughter is arranging follow up with ortho.) documented in this encounter Miscellaneous Notes * Plan of Care - Jesus Mcclendon RN - 01/06/2024 4:21 PM CDT Goals Patient will maintain hemodynamically stable. Prevent and manage potential signs and symptoms of hemodialysis complications. HD access sites, bloodlines and patient's face will be visible during dialysis. VS will be monitored and charted accordingly. * Hospital Course - Kiley Nye NP - 01/06/2024 2:52 PM CDT 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 Patient had urine culture obtained for fatigue/malaise on 12/28 ED visit with VRE isolated. Patient is minimally symptomatic though does report some urinary frequency and has elevated WBC. She still makes urine despite ESRD. Bcx NGTD -transition from IV linezolid to PO linezolid; plan for 3 day course ESRD on hemodialysis History of ESRD on HD Thu//Thu. Missed HD session on 01/04 due to ED calling patient in. BMP without significant electrolyte abnormalities, patient does not appear hypervolemic, but BP is elevated (did miss taking all antihypertensives this AM). No urgent/emergent need for dialysis; got shortened session on 01/05. - cont TRS HD as scheduled Uncontrolled hypertension Patient with uncontrolled hypertension in ED. Patient has issues with labile BP with hypertension on non-HD days and episodes of hypotension and syncopal episode x1 with HD. Most recent admission at [facility] with initiation of hydralazine and nifedipine in addition to existing carvedilol with modest improvement in BP control as outpatient though some frustration by patient and family regarding protocol of holding antihypertensives on HD days causing elevated readings at home. Currentlypatient asymptomatic and well controlled. -restart home nifedipine XR 60 mg, hydralazine 25-->50 mg TID, carvedilol 3.125 mg BID Type 2 diabetes mellitus with diabetic neuropathy, with long-term current use of insulin History of DM2 on insulin therapy basal + bolus. Patient reportedly with good BG control as outpatient per daughter with readings 120-150 mg/dl. BG elevated in ED as patient did not take any meds including insulin prior to presentation. Chronic diastolic congestive heart failure Patient euvolemic at this time. -continue coreg, nifedipine, hydralazine for BP control Late onset Alzheimer's dementia without behavioral disturbance Follows with neurology. -continue risperidone 2mg QHS -continue benztropine 2mg daily Gastroesophageal reflux disease without esophagitis -continue famotidine * Initial Assessments - Phil Salgado RN - 01/06/2024 10:48 AM CDT CM Initial Assessment Interview Note Information Obtained From: (P) Adult child Name: (P) Areli Gyale [phone] (01/06/24 104) Admission Source: non healthcare origin Impression: 73 y/o female with hx ESRD, HF, DM2, HTN, schizoaffective disorder, alzheimer's diseaseadmitted for VRE bacteruria Plan Includes: Anticipate patient will discharge to home with support from family when medically stable. CM to follow for d/c planning and referrals as needed. Primary Source of Transportation: Does the patient need discharge transport arranged?: (P) No (daughter to transport) (01/06/241043) Health Insurance Coverage: Medicare A/B/D, IDPA Prescription Coverage: yes Pharmacy: verified [id number] - [place], [place] - [address] [place] [facility] [phone] Primary Care Provider: verified Cherelle Corcoran MD Prior to Admission: Functional Status: (P) Independent with ADLs Primary Caregiver: (P) Family Support System: (P) Children Home Care Services: (P) Yes Type of Home Care Services: (P) Home therapies (SN & OT) Home care service name and 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: (P) [facility] Outpatient Services: (P) Yes Therapy: (P) Physical (has not begun yet) Therapy Location: (P) [facility] Durable Medical Equipment: (P) Shower chair, Diabetic supplies, Walker (wheeled), Other (Comment) (bed rail) Living Arrangements: (P) Children Type of Residence: (P) Private residence Steps in home?: (P) No steps inside or outside (01/06/24 104) Potential discharge needs include: n/a OP Services: PT with [facility], has not started yet Dialysis: Dialysis History Start End Type Center Comments [facility] Dialysis Center Information [facility] Address: [address] [place] [phone] Behavioral Health Services: Behavioral Health Services: (P) No (01/06/24 104) Anticipated Level of Care: Anticipated discharge level of care: (P) Private residence Pt/Family agrees with Anticipated Level of Care: (P) Yes (01/06/241043) Patient expects to be Discharged to: (P) Private residence, (01/06/241043) Additional Information: CM met with patient at bedside to complete initial assessment. Address and 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 verified with face sheet. Patient lives in a private residence with children. Patient is minimally assisted with ADLs. Has [facility] for SN/PT. DME includes walker, shower chair, diabetic supplies, bed rail. Patient's Identified Problem/Goal Problem: Ensure acute medical [...] Collaboration with Patient, Provider, Direct Care Nurse, Floating Labor Gang Supervisor, and other members of theHealth Care Team to assure needed interventions completed. 2. Return patient to optimal level of self-care post discharge. 3. Cloth Napping Supervisor will follow for Discharge Planning - interventions as needed 4. Anticipated level of care at discharge 5. Planned Discharge Disposition Phil Salgado RN Addendum: Referral sent to [facility] to resume care on discharge. * Plan of Care - Macey Saldivar RN - 01/06/2024 10:23 AM CDT Goals: Clinical Goals for the Shift: admit patient, monitor v/s, administer medications, prevent fall, promote safety and comfort, assist in adls Summary: Problem: Skin Integrity Impairment Risk Goal: Mobility will improve Outcome: Progressing Goal: Understanding of ways to prevent future skin breakdown will improve Outcome: Progressing Goal: Nutritional status will improve Outcome: Progressing Goal: Risk for impaired skin integrity will decrease Outcome: Progressing Problem: Fall Risk Goal: Will remain free from falls Outcome: Progressing Problem: Physical Regulation Description: Module [...] be avoided or minimized Outcome: Progressing Problem: Infection Goal: Absence of fever/infection during anticipated neutropenic period Outcome: Progressing Problem: Musculoskeletal Goal: Return mobility to safest level of function Outcome: Progressing Goal: Return ADL status to a safe level of function Outcome: Progressing Goal: Mobility, ROM and muscle strength will improve Outcome: Progressing Problem: Genitourinary Goal: Absence of urinary retention Outcome: Progressing * Plan of Care - Larry Man RN - 01/06/2024 4:08 AM CDT Problem: Fall Risk Goal: Ability to state ways to decrease the risk of falls will improve 01/06/2024127 by Larry Man RN Outcome: Progressing 01/06/2024127 by Larry Man RN Flowsheets (Taken 01/06/2024127) Ability to state ways to decrease the risk of falls will improve: Teach fall prevention measures Teach information regarding appropriate enviornmental changes Goal: Will remain free from falls Outcome: Progressing Goal: Will remain free from injury from falls Outcome: Progressing Problem: Discharge Planning Goal: Understanding discharge needs will improve 01/06/2024127 by Larry Man RN Outcome: Progressing 01/06/2024 012 by Larry Man RN Flowsheets (Taken 01/06/2024 012) Understanding of discharge needs will improve: Discuss information regarding discharge instructions Identify discharge learning needs (meds, wound care, etc.) Problem: Physical Regulation Description: Module scope: This [...] will be avoided or minimized Outcome: Progressing Flowsheets (Taken 01/06/2024127) Complications related to the disease process, condition or treatment will be avoided or minimized: Monitor vital signs Monitor weight Perform good hand hygiene Goals: Clinical Goals for the Shift: admit patient, monitor v/s, administer medications, prevent fall, promote safety and comfort, assist in adls Summary: admitted patient, v/s monitored wdls, medications administered as ordered, pain and fall free, safety and comfort maintained, assisted in adls. * ED Re-evaluation Note - Kojo Landeros MD - 01/05/2024 11:19 PM CDT ED Re-evaluation TRANSITION OF CARE: I have reviewed all pertinent vital signs, allergies, and history available in the chart. I, Kojo Landeros MD, am taking signout from Dr. Babcock (Resident). Summary: 73 y.o. female PMH ESRD on HD (missed today), T2DM, CHF, HTN, schizoaffective p/w positiveUA with MDR UTI (enterococcus) with susceptibility to linezolid. Mild leukocytosis, urgency. No CVAtenderness, hemodynamically stable. Pending: nephro consulted for HD in AM, f/u blood cultures Dispo: admit to medicine ED Course as of 01/05/24 4704 Time: 01/04 1734 Comment: Patient called to ED with MDR UTI with susceptibility to linezolid By: Murphy Kaiser MD Time: 01/04 181 Comment: Attending Note: This is a 73 y.o. female patient presents with positive ua/culture. Hx of esrd, //. Missed dialysis today. She has dm2 and chf, htn, schizoaffective. She was called back for positive urine culture. She does have some urinary urgency. On exam pleasant, nontoxic, afebrile, no resp distress, no cough, clear speech, abd soft nontender nondistended, no cva tenderness. No resp distress or SOB. Did miss today's dialysis. Check lytes for any emergent/urgent indications. Does not appear volume overloaded. Culture reviewed, resistant uti susceptible to linezolid. Will plan to treat given her reports of urinary urgency. By: Wilner Lopez MD Time: 01/04 2045 Comment: Mild leukocytosis and CMP wo urgent dialysis indications. Plan for Medicine admit with Nephro c/s for dialysis in AM By: Hector Babcock MD Time: 01/04 8463 Comment: I have assumed care of this patient: 73 yof presents with VRE, missed HD, called back for VRE. Awaiting admission. By: Robert Kaufman MD Velagapudi, Vivek, MD Resident 01/05/244 * Assessment & Plan Note - Kojo Mckeon MD - 01/05/2024 10:46 PM CDTAssociated Problem(s): Chronic diastolic congestive heart failure (CMS/HCC) (HCC) Patient euvolemic at this time. -continue coreg, nifedipine, hydralazine for BP control -nephrology c/s for HD * Assessment & Plan Note - Kojo Mckeon MD - 01/05/2024 10:45 PM CDTAssociated Problem(s): Primary hypertension Patient with uncontrolled hypertension in ED. Patient has issues with labile BP with hypertension on non-HD days and episodes of hypotension and syncopal episode x1 with HD. Most recent admission at [facility] with initiation of hydralazine and nifedipine in addition to existing carvedilol with modest improvement in BP control as outpatient though some frustration by patient and family regarding protocol of holding antihypertensives on HD days causing elevated readings at home. Currentlypatient asymptomatic. -restart home nifedipine XR 60 mg, hydralazine 25 mg TID, carvedilol 3.125 mg BID -can uptitrate carvedilol/hydralazine as tolerated during admission * Assessment & Plan Note - Kojo Mckeon MD - 01/05/2024 10:40 PM CDTAssociated Problem(s): Late onset Alzheimer's dementia without behavioral disturbance (HCC) Follows with neurology. -continue risperidone 2mg QHS -continue benztropine 2mg daily * Assessment & Plan Note - Kojo Mckeon MD - 01/05/2024 10:40 PM CDTAssociated Problem(s): Gastroesophageal reflux disease without esophagitis -continue famotidine * Assessment & Plan Note - Kojo Mckeon MD - 01/05/2024 10:39 PM CDTAssociated Problem(s): Type 2 diabetes mellitus with diabetic neuropathy, with long-term current use of insulin ([facility]) History of DM2 on insulin therapy. Patient reportedly with good BG control as outpatient per daughter with readings 120-150 mg/dl. BG elevated in ED as patient did not take any meds including insulinprior to presentation. -dose reduce to glargine 10 units QHS, lispro 3 units TIDAC + LDSSI -consistent carbohydrate diet * Assessment & Plan Note - Kojo Mckeon MD - 01/05/2024 10:37 PM CDTAssociated Problem(s): ESRD on hemodialysis ([facility]) ([facility]) History of ESRD on HD Thu//Sat. Missed HD session on 01/04 due to ED calling patient in. BMP without significant electrolyte abnormalities, patient does not appear hypervolemic, but BP is elevated (did miss taking all antihypertensives this AM). No urgent/emergent need for dialysis at this time. -nephrology c/s for HD; plan for short session today -BMP, phos ordered daily * Assessment & Plan Note - Kojo Mckeon MD - 01/05/2024 10:35 PM CDTAssociated Problem(s): 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 Patient with urine culture for fatigue/malaise on 12/28 ED visit with VRE isolated. Patient is minimally symptomatic though does report some urinary frequency and has elevated WBC. She still makes urine despite ESRD. - Bcx NGTD -transition from IV linezolid to PO linezolid; plan for 3 day course * ED Pre-Arrival Note - Macey Gaxiola RN - 01/05/2024 10:32 AM CDT Pre-Arrival Note Pt call back for IV ABX for her UTI Macey Gaxiola RN documented in this encounter Plan of Treatment Upcoming Encounters Date Type Department Care Team (Latest Contact Info) Description 07/13/2024 9:00 AM MAINFRAME ARCHITECT Hospital Encounter [facility] [address] [place] [address] Jaya Grier MD [facility] [facility] [address] [place] [address] [place] [phone] 07/13/2024 9:00 AM MAINFRAME ARCHITECT - 07/13/2024 9:30 AM MAINFRAME ARCHITECT Surgery [facility] [address] [place] [address] Jaya Grier MD [address] [facility] [address] [place] [address] [place] [id number] ESOPHAGOGASTRODUODENOSCOPY Scheduled Procedures Name Priority Associated Diagnoses Date/Ti ks ESOPHAGOGASTRODUODENOSCOPY Anemia, unspecified type Gastritis without bleeding, unspecified chronicity, unspecified gastritis type 07/13/2024 9:00 AM MAINFRAME ARCHITECT COLONOSCOPY Iron deficiency anemia due to chronic blood loss Scheduled Referrals Name Type Priority Associated Diagnoses Order Schedule Ambulatory referral to Home Health Outpatient Referral Routine Physical deconditioning Late onset Alzheimer's dementia without behavioral disturbance (HCC) 1 Occurrences starting 01/06/2024 until 07/08/2024 documented as of this encounter Procedures Procedure Name Priority Date/Time Associated Diagnosis Comments POCT GLUCOSE DEVICE Routine 01/06/2024 6 :16 PM CDT POCT GLUCOSE DEVICE Routine 01/06/2024 4 :53 PM CDT POCT GLUCOSE DEVICE Routine 01/06/2024 1 2:26 PM CDT HEMODIALYSIS Routine 01/06/2024 9:25 AM CDT POCT GLUCOSE DEVICE Routine 01/06/2024 8 :26 AM CDT POCT GLUCOSE DEVICE Routine 01/06/2024 1 2:04 AM CDT POCT GLUCOSE DEVICE Routine 01/05/2024 1 1:29 PM CDT POCT GLUCOSE DEVICE Routine 01/05/2024 8 :25 PM CDT EGFR STAT 01/05/2024 8:06 PM CDT DIFFERENTIAL AUTO STAT 01/05/2024 8:0 6 PM CDT CBC WITH AUTO DIFFERENTIAL STAT 01/05/2024 8:06 PM CDT BLOOD CULTURE STAT 01/05/2024 8:06 PM CDT BLOOD CULTURE STAT 01/05/2024 8:06 PM CDT PHOSPHORUS Routine 01/05/2024 8:06 PM CDT COMPREHENSIVE METABOLIC PANEL STAT 01/05/2024 8:06 PM CDT documented in this encounter Results * (ABNORMAL) POCT glucose (01/06/2024 6:16 PM CDT) Glucose, POC 243(H) 70 - 199 mg/dL Blood 01/06/2024 6:16 PM CDT 01/06/2024 6:16 PM CDT Karri Kirkpatrick MD LAB POCT ORDERABLES - DEVICE Final Result Performing Organization Address [facility] de Phone Number [facility] [place] [address] * POCT glucose (01/06/2024 4:53 PM CDT) Glucose, POC 192 70 - 199 mg/dL Blood 01/06/2024 4:53 PM CDT 01/06/2024 4:53 PM CDT Karri Kirkpatrick MD LAB POCT ORDERABLES - DEVICE Final Result Performing Organization Address [facility] de Phone Number [facility] [place] [address] * (ABNORMAL) POCT glucose (01/06/2024 12:26 PM CDT) Glucose, POC 215(H) 70 - 199 mg/dL Blood 01/06/2024 12:2 6 PM CDT 01/06/2024 12:26 PM CDT Karri Kirkpatrick MD LAB POCT ORDERABLES - DEVICE Final Result Performing Organization Address [facility] de Phone Number [facility] [place] [address] * POCT glucose (01/06/2024 8:26 AM CDT) Glucose, POC 147 70 - 199 mg/dL Blood 01/06/2024 8:26 AM CDT 01/06/2024 8:26 AM CDT us Karri Kirkpatrick MD LAB POCT ORDERABLES - DEVICE Final Result Performing Organization Address [facility] Co de Phone Number [facility] [place] [address] * (ABNORMAL) POCT glucose (01/06/2024 12:04 AM CDT) Glucose, POC 265(H) 70 - 199 mg/dL Blood 01/06/2024 12:0 4 AM CDT 01/06/2024 12:04 AM CDT us Shari Laura MD LAB POCT ORDERABLES - DEVIC E Final Result Performing Organization Address [facility] de Phone Number [facility] [place] [address] * (ABNORMAL) POCT glucose (01/05/2024 11:29 PM CDT) Glucose, POC 302(H) 70 - 199 mg/dL Blood 01/05/2024 11:2 9 PM CDT 01/05/2024 11:29 PM CDT us Shari Laura MD LAB POCT ORDERABLES - DEVIC E Final Result Performing Organization Address [facility] de Phone Number [facility] [place] [address] * (ABNORMAL) POCT glucose (01/05/2024 8:25 PM CDT) Glucose, POC 257(H) 70 - 199 mg/dL Blood 01/05/2024 8:25 PM CDT 01/05/2024 8:25 PM CDT us Wilner Lopez MD LAB POCT ORDERABLES - DEVICE Fin al Result Performing Organization Address [facility] Co de Phone Number [facility] [place] [address] * (ABNORMAL) eGFR (01/05/2024 8:06 PM CDT) eGFR 10(L) >=60 mL/min/1. 73 m2 [...] interpretive data was last reviewed 2021. Blood 01/05/2024 8:06 PM CDT 01/05/2024 8:20 PM CDT us Murphy Kaiser MD LAB BLOOD ORDERABLES Fi nal Result Performing Organization Address [facility]/ZIP Co de Phone Number NILSA ZARATE [facility] Department [place] [address] * (ABNORMAL) Differential, auto (01/05/2024 8:06 PM CDT) Pathologist [facility] Neutrophil abs 8.7(H) 1.5 - 6.5 K/cumm Imm gran abs 0.1 0.0 - 0.1 K/cumm [facility] Lymphocyte abs 1.9 0.8 - 3.3 K/cumm [facility] Monocyte abs 0.5 0.2 - 0.8 K/cumm [facility] Eosinophil abs 0.2 0.0 - 0.5 K/cumm [facility] Basophil abs 0.0 0.0 - 0.1 K/cumm [facility] Neutrophil pct 76.8 % [facility] Comment: Interpretive Data Percent cell count reference ranges are not reported, since discordance with absolute values may lead to misinterpretation of CBC data. Current Interpretive Data was last revised on 2017. Imm gran pct 0.4 % [facility] Comment: Interpretive Data Percent cell count reference ranges are not reported, since discordance with absolute values may lead to misinterpretation of CBC data. Current Interpretive Data was last revised on 2017. Lymphocyte pct 16.6 % [facility] Comment: Interpretive Data Percent cell count reference ranges are not reported, since discordance with absolute values may lead to misinterpretation of CBC data. Current Interpretive Data was last revised on 2017. Monocyte pct 4.1 % [facility] Comment: Interpretive Data Percent cell count reference ranges are not reported, since discordance with absolute values may lead to misinterpretation of CBC data. Current Interpretive Data was last revised on 2017. Eosinophil pct 1.8 % [facility] Comment: Interpretive Data Percent cell count reference ranges are not reported, since discordance with absolute values may lead to misinterpretation of CBC data. Current Interpretive Data was last revised on 2017. Basophil pct 0.3 % [facility] Comment: Interpretive Data Percent cell count reference ranges are not reported, since discordance with absolute values may lead to misinterpretation of CBC data. Current Interpretive Data was last revised on 2017. Blood 01/05/2024 8:06 PM CDT 01/05/2024 8:20 PM CDT Murphy Kaiser MD LAB BLOOD ORDERABLES Fi nal Result [facility] [place] [address] * Phosphorus (01/05/2024 8:06 PM CDT) Phosphorus, pl 2.9 2.3 - 4.5 mg/dL Blood 01/05/2024 8:06 PM CDT 01/05/2024 8:19 PM CDT Hector Babcock MD LAB BLOOD ORDERABLES Fi nal Result Performing Organization Address [facility] Co de Phone Number [facility] Department [place] [address] * Blood culture Blood (01/05/2024 8:06 PM CDT) Report Final Report: No growth Blood 01/05/2024 8:06 PM CDT 01/05/2024 8:22 PM CDT Narrative [facility] - 01/10/2024 7:00 AM CDT From 2nd site Collection->Peripheral 1. ?Blood cultures are incubated for [...] organism identification may be performed using the Podclassigene Gram-Positive Blood Culture Assay. This assay detects microbial DNA in positive blood culture broth via hybridization of target DNA to capture oligonucleotides on a microarray. This assay has been cleared by the [place] Food and Drug Administration and its performance characteristics have been verified by the [facility]. 5. ?For questions about this culture, contact the Microbiology Laboratory at [phone]. Interpretive data was last revised on 2019. Hector Babcock MD LAB MICROBIOLOGY - GENE RAL ORDERABLES Final Result [facility] Department [place] [address] * Blood culture Blood (01/05/2024 8:06 PM CDT) Report Final Report: No growth Blood 01/05/2024 8:06 PM CDT 01/05/2024 8:22 PM CDT Narrative [facility] - 01/10/2024 7:00 AM CDT Collection->Peripheral 1. ?Blood cultures are incubated for [...] organism identification may be performed using the Verigene Gram-Positive Blood Culture Assay. This assay detects microbial DNA in positive blood culture broth via hybridization of target DNA to capture oligonucleotides on a microarray. This assay has been cleared by the [place] Food and Drug Administration and its performance characteristics have been verified by the [facility]. 5. ?For questions about this culture, contact the Microbiology Laboratory at [phone]. Interpretive data was last revised on 2019. Hector Babcock MD LAB MICROBIOLOGY - GENE RAL ORDERABLES Final Result [facility] Department [place] [address] * (ABNORMAL) Comprehensive metabolic panel (01/05/2024 8:06 PM CDT) Sodium 143 135 - 145 mmol/L Potassium, pl 4.2 3.3 - 4.9 mmol/L [facility] Chloride 105 97 - 110 mmol/L [facility] CO2 27 22 - 32 mmol/L [facility] Anion gap 11 2 - 15 mmol/L [facility] BUN 62(H) 6 - 25 mg/dL [facility] Creatinine 4.50(H) 0.60 - 1.10 mg/dL [facility] Glucose 204(H) 70 - 199 mg/dL [facility] Comment: Interpretive Data Fasting glucose >/= 126 [...] interpretive data was last revised 2022. Calcium 9.5 8.5 - 10.3 mg/dL [facility] Bilirubin, total <0.2 0.1 - 1.2 mg/dL [facility] Protein, pl 7.3 6.5 - 8.5 g/dL [facility] Albumin 3.9 3.5 - 5.0 g/dL [facility] Alk phos 121 40 - 130 Units/L [facility] ALT 33 7 - 45 Units/L [facility] AST 22 10 - 45 Units/L [facility] Blood 01/05/2024 8:06 PM CDT 01/05/2024 8:20 PM CDT Murphy Kaiser MD LAB BLOOD ORDERABLES Fi nal Result Performing Organization Address [facility]/ZIP Co de Phone Number [facility] [place] [address] * (ABNORMAL) CBC with auto differential (01/05/2024 8:06 PM CDT) WBC 11.4(H) 3.8 - 9.9 K/cumm Hgb 7.9(L) 11.9 - 15.5 g/dL [facility] Hct 24.3(L) 35.6 - 45.5 % [facility] Plt 356 150 - 400 K/cumm [facility] MPV 10.0 9.1 - 12.3 fL [facility] RBC 2.49(L) 3.90 - 5.20 M/cumm [facility] MCV 97.6(H) 81.3 - 96.4 fL [facility] MCH 31.7 27.1 - 33.3 pg [facility] MCHC 32.5 32.3 - 35.7 g/dL [facility] RDW CV 14.6 11.1 - 14.9 % [facility] RDW SD 51.8(H) 35.7 - 48.1 fL [facility] NRBC abs 0.00 0.00 - 0.01 K/cumm [facility] Blood 01/05/2024 8:06 PM CDT 01/05/2024 8:20 PM CDT Murphy Kaiser MD LAB BLOOD ORDERABLES Fi nal Result Performing Organization Address [facility]/ZIP Co de Phone Number [facility] [place] [address] documented in this encounter Visit Diagnoses Diagnosis 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- Primary Primary hypertension Unspecified essential hypertension 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 Bandemia Physical deconditioning Muscular wasting and disuse atrophy, not elsewhere classified Late onset Alzheimer's dementia without behavioral disturbance ([facility]) ESRD on hemodialysis ([facility]) ([facility]) Type 2 diabetes mellitus with diabetic neuropathy, with long-term current use of insulin ([facility]) Gastroesophageal reflux disease without esophagitis Esophageal reflux Late onset Alzheimer's dementia without behavioral disturbance ([facility]) Uncontrolled hypertension Chronic diastolic congestive heart failure ([facility]) ([facility]) Anemia, unspecified type Gastritis without bleeding, unspecified chronicity, unspecified gastritis type documented in this encounter Admitting Diagnoses Diagnosis 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 documented in this encounter Administered Medications Inactive Administered Medications - up to 3 most recent administrations Medication Order MAR Action Action Date Dose Rate Site acetaminophen (TYLENOL) tablet 1,000 mg 1,000 mg, oral, Every 6 hours PRN, 1st line for pain, Starting on Thu01/05/24 at 1842 aspirin chewable tablet 81 mg 81 mg, oral, Daily, First dose on Thu01/06/24 at 0900 Given 01/06/2024 9:11 AM CDT 81 mg benztropine (COGENTIN) tablet 2 mg 2 mg, oral, Daily, First dose on Thu01/05/24 at 1843 Given 01/06/2024 9:11 AM CDT 2 mg Given 01/05/2024 8:20 PM CDT 2 mg carvediloL (COREG) tablet 3.125 mg 3.125 mg, oral, 2 times daily with meals (bkfst, dinner), First dose on Thu01/05/24 at 1826 Given 01/06/2024 6:50 PM CDT 3.125 mg Given 01/06/2024 9:11 AM CDT 3.125 mg Given 01/05/2024 8:20 PM CDT 3.125 mg dextrose (D10W) 10% bolus 250 mL 250 mL, intravenous, at 1,000 mL/hr, Administer over 15 Minutes, Every 15 min PRN, blood glucose less than 70 mg/dL and UNABLE to swallow/take PO glucose/juice., Starting on Thu01/06/24 at 0018, After treatment for hypoglycemia, recheck BG followed by treatment every 15 minutes until the BG is greater than 100 mg/dL. Then check BG 1 hour post treatment. If BG is less than 100 mg/dL, repeat Q15 minute BG checks and treatment. Call MD for each episode of hypoglycemia., Indications: hypoglycemic disorderIndications:hypoglyce sreekanth disorder dextrose gel in packet 15 g 15 g, oral, Every 15 min PRN, low blood sugar, blood glucose less than 70 mg/dL, Starting on Thu01/06/24 at 0018, If patient is alert and able to [...] for each episode of hypoglycemia., Indications: hypoglycemic disorderIndications:hypoglyce sreekanth disorder famotidine (PEPCID) tablet 10 mg 10 mg, oral, Daily, First dose on Thu01/06/24 at 0900 Given 01/06/2024 9:11 AM CDT 10 mg heparin 1,000 unit/mL injection 1.5-6.9 mL 1.5-6.9 mL, intra-catheter, Once, On Thu01/06/24 at 1445, For 1 dose, Dialysis, [place] volume of catheter lumens post treatment. Give volume based upon sand polisher's recommendation (usual range 1.2 - 3 mL) in each lumen., Indications: prevent clotting in catheterIndications:prevent clotting in catheter Given 01/06/2024 5:30 PM CDT 4 mL heparin 5,000 unit/mL injection 5,000 Units 5,000 Units, subcutaneous, Every 8 hours scheduled, First dose on Thu01/06/24 at 0030, Indications: Deep Vein Thrombosis PreventionIndications:Deep Vein Thrombosis Prevention Given 01/06/2024 9:11 AM CDT 5,000 Units Left Upper Abdomen Given 01/06/2024 12:53 AM CDT 5,000 Units Left Lower Abdomen hydrALAZINE (APRESOLINE) tablet 25 mg 25 mg, oral, 3 times daily, First dose on Thu01/05/24 at 2100, Indications: hypertensionIndications:hypert ension Given 01/05/2024 8:20 PM CDT 25 mg hydrALAZINE (APRESOLINE) tablet 25 mg 25 mg, oral, Once, On Thu01/06/24 at 0100, For 1 dose, Indications: hypertensionIndications:hypert ension Given 01/06/2024 12:52 AM CDT 25 mg hydrALAZINE (APRESOLINE) tablet 50 mg 50 mg, oral, 3 times daily, First dose (after last modification) on Thu01/06/24 at 0900, Indications: hypertensionIndications:hypert ension Given 01/06/2024 9:11 AM CDT 50 mg ibuprofen (ADVIL,MOTRIN) tablet 800 mg 800 mg, oral, Once, On Thu01/05/24 at 1542, For 1 dose, Do not crush, break, or open. Given 01/05/2024 3:44 PM CDT 800 mg insulin glargine (LANTUS, SEMGLEE) 100 unit/mL injection 12 Units 12 Units, subcutaneous, Nightly, First dose on Thu01/05/24 at 2100, Do not hold if NPO. Do not mix with other insulins, Indications: Diabetes MellitusIndications:Diabetes Mellitus Given 01/05/2024 9:27 PM CDT 12 Units Left Upper Arm insulin lispro (HumaLOG, ADMELOG) 100 unit/mL injection 0-4 Units 0-4 Units, subcutaneous, Nightly, First dose on Thu01/05/24 at 2100, Blood glucose mg/dL: 199 or less: No insulin 200-249: add 1 unit 250-299: add 2 units 300-349: add 3 units and notify physician for adjustment of insulin orders. 350-399: add 4 units and notify physician for adjustment of insulin orders. Over 400: Notify physician for adjustment of insulin orders. Do NOT hold for NPO Status, Indications: Diabetes MellitusIndications:Diabetes Mellitus Given 01/05/2024 9:28 PM CDT 2 Units Left Upper Arm insulin lispro (HumaLOG, ADMELOG) 100 unit/mL injection 0-5 Units 0-5 Units, subcutaneous, 3 times daily with meals, First dose on Thu01/06/24 at 0800, Blood glucose mg/dL: 149 or [...] NPO Status, Indications: Diabetes MellitusIndications:Diabetes Mellitus Given 01/06/2024 5:39 PM CDT 1 Units Left Upper Arm Given 01/06/2024 12:34 PM CDT 2 Units L eft Lower Abdomen insulin lispro (HumaLOG, ADMELOG) 100 unit/mL injection 2 Units 2 Units, subcutaneous, Once, On Thu01/06/24 at 0100, For 1 dose, Indications: HyperglycemiaIndications:Hyp erglycemia Given 01/06/2024 12:53 AM CDT 2 Units Right Upper Arm insulin lispro (HumaLOG, ADMELOG) 100 unit/mL injection 3 Units 3 Units (rounded from 2.72 Units = 0.05 Units/kg ? 54.4 kg), subcutaneous, 3 times daily with meals, First dose on Thu01/06/24 at 0800, If BG greater than or [...] 70 mg/dL., Indications: Diabetes MellitusIndications:Diabetes Mellitus Given 01/06/2024 6:50 PM CDT 3 Units Left Lower Abdomen Given 01/06/2024 12:33 PM CDT 3 Units L eft Lower Abdomen Given 01/06/2024 9:11 AM CDT 3 Units Le ft Lower Abdomen linezolid (ZYVOX) 600 mg/300 mL in dextrose 5% (premix) 600 mg 600 mg, intravenous, at 150 mL/hr, Administer over 2 Hours, Every 12 hours scheduled, First dose on Thu01/05/24 at 1739, Indications: Urinary Tract/Genitourinary InfectionIndications:Urinary Tract/Genitourinary Infection New Bag 01/05/2024 8:26 PM CDT 600 mg 1 50 mL/hr linezolid (ZYVOX) tablet 600 mg 600 mg, oral, 2 times daily, First dose on Thu01/06/24 at 0900, Indications: Urinary Tract/Genitourinary InfectionIndications:Urinary Tract/Genitourinary Infection Given 01/06/2024 9:11 AM CDT 600 mg NIFEdipine (PROCARDIA XL/ADALAT CC) extended release tablet 60 mg 60 mg, oral, Daily, First dose on Thu01/06/24 at 0900, Do not crush, chew, cut, dissolve, open or otherwise manipulate tablet/capsule. Given 01/06/2024 9:11 AM CDT 60 mg risperiDONE (RisperDAL) tablet 2 mg 2 mg, oral, Nightly, First dose on Thu01/05/24 at 2100 Given 01/05/2024 8:20 PM CDT 2 mg traMADoL (ULTRAM) tablet 25 mg 25 mg, oral, Every 8 hours PRN, 2nd line for pain, Starting on Thu01/05/24 at 1954 Given 01/05/2024 8:19 PM CDT 25 mg documented in this encounter Discontinued Medications Medication Sig Discontinue Reason Start Date End Da te atorvastatin (LIPITOR) 40 mg tablet Take 1 tablet (40 mg total) by mouth nightly 11/03/2023 01/06/2024 hydrALAZINE (APRESOLINE) 25 mg tabletIndications:hypert ension Take 1 tablet (25 mg total) by mouth 3 (three) times a day 12/25/2023 01/06/2024 linezolid (ZYVOX) 600 mg tabletIndications:Urinar y Tract/Genitourinary Infection Take 1 tablet (600 mg total) by mouth 2 (two) times a day for 2 days 01/06/2024 01/06/2024 linezolid (ZYVOX) 600 mg tabletIndications:Urinar y Tract/Genitourinary Infection Take 1 tablet (600 mg total) by mouth 2 (two) times a day for 2 days 01/06/2024 01/06/2024 linezolid (ZYVOX) 600 mg tabletIndications:Urinar y Tract/Genitourinary Infection Take 1 tablet (600 mg total) by mouth 2 (two) times a day for 2 days 01/06/2024 01/06/2024 documented as of this encounter Active and Recently Administered Medications Times are shown in CDT. Scheduled Medication Order 01/04/2024 01/05/2024 01/06/2024 aspirin chewable tablet 81 mg 81 mg, oral, Daily, First dose on Thu01/06/24 at 0900 0911 (Given - Provid er: Macey Saldivar RN) benztropine (COGENTIN) tablet 2 mg 2 mg, oral, Daily, First dose on Thu01/05/24 at 1843 2020 (Given - Provider: Shyanne Hinkle RN) 0911 (Given - Provider: Macey Saldivar RN) carvediloL (COREG) tablet 3.125 mg 3.125 mg, oral, 2 times daily with meals (bkfst, dinner), First dose on Thu01/05/24 at 1826 2020 (Given - Provider: Shyanne Hinkle RN) 0911 (Given - Provider: Macey Saldivar RN)1850 (Given - Provider: Macey Saldivar RN) famotidine (PEPCID) tablet 10 mg 10 mg, oral, Daily, First dose on Thu01/06/24 at 0900 0911 (Given - Provid er: Macey Saldivar RN) heparin 1,000 unit/mL injection 1.5-6.9 mL (CANCELED)(Linked Group 1) 1.5-6.9 mL, intra-catheter, Once, On Thu01/06/24 at 1445, For 1 dose, Dialysis, [place] volume of catheter lumens post treatment. Give volume based upon sand polisher's recommendation (usual range 1.2 - 3 mL) in each lumen., Indications: prevent clotting in catheter 1730 (Given - Provid er: Jesus Mcclendon RN) heparin 5,000 unit/mL injection 5,000 Units 5,000 Units, subcutaneous, Every 8 hours scheduled, First dose on Thu01/06/24 at 0030, Indications: Deep Vein Thrombosis Prevention 0053 (Given - Provid er: Larry Man RN)0911 (Given - Provider: Macey Saldivar RN)1600 (Not Given - Provider: Macey Saldivar RN - Reason: Patient not available) hydrALAZINE (APRESOLINE) tablet 25 mg (CANCELED) 25 mg, oral, 3 times daily, First dose on Thu01/05/24 at 2100, Indications: hypertension 2020 (Given - Provider: Shyanne Hinkle RN) hydrALAZINE (APRESOLINE) tablet 25 mg (COMPLETED) 25 mg, oral, Once, On Thu01/06/24 at 0100, For 1 dose, Indications: hypertension 0052 (Given - Provid er: Larry Man RN) hydrALAZINE (APRESOLINE) tablet 50 mg 50 mg, oral, 3 times daily, First dose (after last modification) on Thu01/06/24 at 0900, Indications: hypertension 0911 (Given - Provid er: Macey Saldivar, ALIREZA)1600 (Not Given - Provider: Macey Saldivar RN - Reason: Patient not available)2099 (Due) ibuprofen (ADVIL,MOTRIN) tablet 800 mg (COMPLETED) 800 mg, oral, Once, On Thu01/05/24 at 1542, For 1 dose, Do not crush, break, or open. 154 (Given - Provider: Azul Salcido RN) insulin glargine (LANTUS, SEMGLEE) 100 unit/mL injection 10 Units 10 Units, subcutaneous, Nightly, First dose on Thu01/06/24 at 2100, Do not hold if NPO. Do not mix with other insulins, Indications: Diabetes Mellitus 2099 (Due) insulin glargine (LANTUS, SEMGLEE) 100 unit/mL injection 12 Units (CANCELED) 12 Units, subcutaneous, Nightly, First dose on Thu01/05/24 at 2100, Do not hold if NPO. Do not mix with other insulins, Indications: Diabetes Mellitus 2126 (Given - Provider: Shyanne Hinkle, ALIREZA) insulin lispro (HumaLOG, ADMELOG) 100 unit/mL injection 0-4 Units (CANCELED) 0-4 Units, subcutaneous, Nightly, First dose on Thu01/05/24 at 2100, Blood glucose mg/dL: 199 or less: No insulin 200-249: add 1 unit 250-299: add 2 units 300-349: add 3 units and notify physician for adjustment of insulin orders. 350-399: add 4 units and notify physician for adjustment of insulin orders. Over 400: Notify physician for adjustment of insulin orders. Do NOT hold for NPO Status, Indications: Diabetes Mellitus 2127 (Given - Provider: Shyanne Hinkle RN) insulin lispro (HumaLOG, ADMELOG) 100 unit/mL injection 0-4 Units 0-4 Units, subcutaneous, Nightly, First dose on Thu01/06/24 at 2100, Blood glucose mg/dL: 199 or less: No insulin 200-249: add 1 unit 250-299: add 2 units 300-349: add 3 units and notify physician for adjustment of insulin orders. 350-399: add 4 units and notify physician for adjustment of insulin orders. Over 400: Notify physician for adjustment of insulin orders. Do NOT hold for NPO Status, Indications: Diabetes Mellitus 2100 (Due) insulin lispro (HumaLOG, ADMELOG) 100 unit/mL injection 0-5 Units 0-5 Units, subcutaneous, 3 times daily with meals, First dose on Thu01/06/24 at 0800, Blood glucose mg/dL: 149 or [...] hold for NPO Status, Indications: Diabetes Mellitus 0838 (Not Given - Provider: Macey Saldivar RN - Reason: Contraindicated)1234 (Given - Provider: Macey Saldivar RN)1739 (Given - Provider: Jesus Mcclendon RN) insulin lispro (HumaLOG, ADMELOG) 100 unit/mL injection 2 Units (COMPLETED) 2 Units, subcutaneous, Once, On Thu01/06/24 at 0100, For 1 dose, Indications: Hyperglycemia 0053 (Given - Provid er: Larry Man RN) insulin lispro (HumaLOG, ADMELOG) 100 unit/mL injection 3 Units 3 Units (rounded from 2.72 Units = 0.05 Units/kg ? 54.4 kg), subcutaneous, 3 times daily with meals, First dose on Thu01/06/24 at 0800, If BG greater than or [...] less than 70 mg/dL., Indications: Diabetes Mellitus 0911 (Given - Provid er: Macey Saldivar RN)1233 (Given - Provider: Macey Saldivar RN)1850 (Given - Provider: Macey Saldivar RN) linezolid (ZYVOX) 600 mg/300 mL in dextrose 5% (premix) 600 mg (CANCELED) 600 mg, intravenous, at 150 mL/hr, Administer over 2 Hours, Every 12 hours scheduled, First dose on Thu01/05/24 at 1739, Indications: Urinary Tract/Genitourinary Infection 2025 (New Bag - Provider: Shyanne Hinkle RN - Comment: IV Access)2330 (Stopped - Provider: Kathy Link RN) linezolid (ZYVOX) tablet 600 mg 600 mg, oral, 2 times daily, First dose on Thu01/06/24 at 0900, Indications: Urinary Tract/Genitourinary Infection 910 (Given - Provid er: Macey Saldivar RN)2099 (Due) NIFEdipine (PROCARDIA XL/ADALAT CC) extended release tablet 60 mg 60 mg, oral, Daily, First dose on Thu01/06/24 at 0900, Do not crush, chew, cut, dissolve, open or otherwise manipulate tablet/capsule. 09 (Given - Provid er: Macey Saldivar RN) risperiDONE (RisperDAL) tablet 2 mg 2 mg, oral, Nightly, First dose on Thu01/05/24 at 2100 2019 (Given - Provider: Shyanne Hinkle RN) 2099 (Due) PRN Medication Order 01/04/2024 01/05/2024 01/06/2024 acetaminophen (TYLENOL) tablet 1,000 mg 1,000 mg, oral, Every 6 hours PRN, 1st line for pain, Starting on Thu01/05/24 at 1842 dextrose (D10W) 10% bolus 250 mL(Linked Group 2) 250 mL, intravenous, at 1,000 mL/hr, Administer over 15 Minutes, Every 15 min PRN, blood glucose less than 70 mg/dL and UNABLE to swallow/take PO glucose/juice., Starting on Thu01/06/24 at 0018, After treatment for hypoglycemia, recheck BG followed by treatment every 15 minutes until the BG is greater than 100 mg/dL. Then check BG 1 hour post treatment. If BG is less than 100 mg/dL, repeat Q15 minute BG checks and treatment. Call MD for each episode of hypoglycemia., Indications: hypoglycemic disorder dextrose gel in packet 15 g(Linked Group 2) 15 g, oral, Every 15 min PRN, low blood sugar, blood glucose less than 70 mg/dL, Starting on Thu01/06/24 at 0018, If patient is alert and able to [...] each episode of hypoglycemia., Indications: hypoglycemic disorder glucagon injection 1 mg 1 mg, intramuscular, Every 30 min PRN, low blood sugar, blood glucose less than 70 mg/dL AND no IV access AND unable to take PO glucose/juice., Starting on Thu01/06/24 at 0018, After Glucagon is administered, position patient on [...] 1 mL SWFI. Use immediately following reconstitution. traMADoL (ULTRAM) tablet 25 mg 25 mg, oral, Every 8 hours PRN, 2nd line for pain, Starting on Thu01/05/24 at 1952018 (Given - Provider: Kayden Hinkle RN) Linked Groups Order Group 1: Dialysis Access Care (CANCELED) Routine, Once (Routine), On Thu01/06/24 at 1413, For 1 occurrence, Catheter access to use for this treatment: Tunneled Dialysis Catheter, Dialysis And heparin 1,000 unit/mL injection 1.5-6.9 mL (CANCELED)Jump to med 1.5-6.9 mL, intra-catheter, Once, On Thu01/06/24 at 1445, For 1 dose, Dialysis, [place] volume of catheter lumens post treatment. Give volume based upon sand polisher's recommendation (usual range 1.2 - 3 mL) in each lumen., Indications: prevent clotting in catheter Group 2: dextrose gel in packet 15 gJump to med 15 g, oral, Every 15 min PRN, low blood sugar, blood glucose less than 70 mg/dL, Starting on Thu01/06/24 at 0018, If patient is alert and able to [...] each episode of hypoglycemia., Indications: hypoglycemic disorder Or dextrose (D10W) 10% bolus 250 mLJump to med 250 mL, intravenous, at 1,000 mL/hr, Administer over 15 Minutes, Every 15 min PRN, blood glucose less than 70 mg/dL and UNABLE to swallow/take PO glucose/juice., Starting on Thu01/06/24 at 0018, After treatment for hypoglycemia, recheck BG followed by treatment every 15 minutes until the BG is greater than 100 mg/dL. Then check BG 1 hour post treatment. If BG is less than 100 mg/dL, repeat Q15 minute BG checks and treatment. Call MD for each episode of hypoglycemia., Indications: hypoglycemic disorder documented in this encounter Orders Medications Ordered That Flip ht Not Have Been Administered Count Last Ordered Date First Ordered Date dextrose (D10W) 10% bolus 250 mL 2 01/06/20 24 01/05/2024 dextrose gel in packet 15 g 2 01/06/2024 01/05/2024 glucagon injection 1 mg 2 01/06/202412/20 insulin glargine (LANTUS, SE MGLEE) 100 unit/mL injection 10 Units 1 01/06/2024 insulin lispro (HumaLOG, ADM ELOG) 100 unit/mL injection 0-4 Units 1 01/06/2024 sodium chloride 0.9% bolus 200 mL 1 024 acetaminophen (TYLENOL) tablet 1,000 mg 1 0 01/05/2024 insulin lispro (HumaLOG, ADM ELOG) 100 unit/mL injection 0-5 Units 1 01/05/2024 insulin lispro (HumaLOG, ADM ELOG) 100 unit/mL injection 2 Units 1 01/05/2024 Lab Orders Without Results Count Last Ordered D ate First Ordered Date POCT GLUCOSE DEVICE 1 01/06/2024 Nursing Count Last Ordered Date First Orde red Date DISCHARGE ACTIVITY 1 01/06/2024 DISCHARGE CALL PROVIDER 5 01/06/2024 DISCHARGE INSTRUCTIONS 1 01/06/2024 WEIGH PATIENT 1 01/06/2024 Consult Count Last Ordered Date First Orde red Date IP CONSULT TO NEPHROLOGY 1 01/06/2024 Dialysis Count Last Ordered Date First Orde red Date HEMODIALYSIS/DUF 1 01/06/2024 Admission Count Last Ordered Date First Orde red Date INITIATE OBSERVATION SERVICES 1 01/05/2024 Discharge Count Last Ordered Date First Orde red Date DISCHARGE PATIENT 1 01/06/2024 documented in this encounter 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 06/26/2024 3:05 AM MAINFRAME ARCHITECT documented as of this encounter Care Teams Acute Care Physician Relationship Specialty Start Date End Date Cherelle Corcoran MD PCP - General Family Medicine 08/30/19 Mark Queen MD Consulting Physician Infectious Diseases 01/10/20 Rudolph Welch MD [address] [facility] [address] [place] [address] Consulting Physician Infectious Diseases 12/05/22 Markie Ryan MD [address] [facility] [address] [place] [address] Consulting Physician Nephrology 12/05/22 Dulce Vega, ALIREZA [address] [facility] [address] [place] [address] Ore Roaster 10/07/23 05/03/24 [place] [address] [address] [facility] [address] [place] [address] Consulting Physician Nephrology 10/22/23 documented as of this encounter
--- OUTSIDE RECORDS SUMMARY | 2024-07-04 04:04 | XMS_ITS | Encounter Summary ---
Author Organization [facility] Healthcare Address [address] [place] [address] Care Team Providers Care Java J2Ee Software Engineer Name Role Phone Cherelle Corcoran MD Primary Care Pro vider Mark Queen MD Unavailable [phone] Rudolph Welch MD Unavailable [phone] Markie Ryan MD Unavailable [phone] Dulce Vega RN Unavailable [phone] Jimbo Strauss MD Unavailable [phone] Reason for Visit * Reason Comments Weakness - Generalized * Auth/Cert (Routine) Specialty Diagnoses / Procedures Referred By Contac t Referred To Contact Referral ID Status Reason Start Date Expiration Date Visits Re quested Visits Authorized [id number] 1 1 Encounter Details Date Type Department Care Team (Late st Contact Info) Description 01/08/2024 11:45 AM CDT Home Care Visit [facility] [address] [place] [address] Sarahy Feliciano PTA PT HOME [...] materials from doctor or pharmacy Never 12/28/2023 [facility] Utilities Answer Date Recorded In the past 12 months has th e [employer], gas, oil, or water [employer] threatened to shut off services in your [...] often do you attend chur ch or yazidism services? 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 Gender Identity Female 02/08/2020 6:39 PM CDT Sexual Orientation Not on file documented as of this encounter Last Filed Vital Signs Vital Sign Reading Time Taken Comments Blood Pressure 160/80 01/08/2024 12:10 PM CDT Pulse 80 01/08/2024 12:10 PM CDT Temperature 36.8 ??C (98.2 ??F) 01/08/2024 12:10 PM C DT Respiratory Rate 01/08/2024 12:10 PM CDT Oxygen Saturation 97% 01/08/2024 12:10 PM CDT Inhaled Oxygen Concentration - - Weight - - Height - - Body Mass Index - - documented in this encounter Miscellaneous Notes * Home Health Plan for Next Visit - Sarahy Feliciano PTA - 01/08/2024 12:36 PM CDT Reason for today's visit strength, [...] mobility and to decrease fall risk. pt perseverating on c/o pain in the left arm and shoulder. Attempts made to reditect with moderate success noted. Provided pt with verbal, visual, and tactile cues to complete all ex. left hep handout in pts home and consulted with pts daughter about the handout. documented in this encounter Plan of Treatment Upcoming Encounters Date Type Department Care Team (Latest Contact Info) Description 07/13/2024 9:00 AM GRAVITY METER OBSERVER Hospital Encounter [facility] [address] [place] [address] Jaya Grier MD [address] [place] [address] 07/13/2024 9:00 AM GRAVITY METER OBSERVER - 07/13/2024 9:30 AM GRAVITY METER OBSERVER Surgery [facility] [address] [place] [address] Jaya Grier MD [address] [place] [address] ESOPHAGOGASTRODUODENOSCOPY Scheduled Procedures Name Priority Associated Diagnoses Date/Ti me ESOPHAGOGASTRODUODENOSCOPY Anemia, unspecified type Gastritis without bleeding, unspecified chronicity, unspecified gastritis type 07/13/2024 9:00 AM GRAVITY METER OBSERVER COLONOSCOPY Iron deficiency anemia due to chronic blood loss documented as of this encounter Visit Diagnoses Not on filedocumented in this encounter 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 Visit Notes Patient receives care at the most appropriate care setting Description: Patient receives care at the most appropriate care setting. Homebound Status No Measure vital signs during every home health visit during episode of care Description: Home road train driver to measure vital signs during every home [...] Completed Patient is homebound due to unsteady gait, gait deficits, balance deficits, fall risk, assist required for adl's, pain limiting mobility, recent hospitalization for syncope, another hospital visit 3 days ago for further testing of uti, pt requries assist to complete the step at the front of the home all making leaving the home a taxing effort. Monitor Vital Signs Description: Monitor blood pressure, pulse, oxygen saturation, respirations Problem:Monitor patient's vital signs every home health visit Goal:Measure vital signs during every home health visit during episode of care Completed Monitored patients blood pressure, pulse, oxygen saturation, temp, and respirations during session. Educate Patient on Infection Prevention Description: Instruct [...] for mobility including enter/exit the home and with stair mobility. Pt verbalized good understanding of instuctions and provides safe verbalization/return demonstration of the instructions. Assess safety Description: Assess patient safety Problem:Safety concerns Goal:Demonstrate use of safety precautions Completed Patient/Caregiver maintains safe enviroment as evident by remaining free from falls and demonstrates use of safety precautions with amx instruction and cues from family and therapist. Assess patient for HOMMED monitor Description: Assess if there is a need for telemonitor. Problem:Remote Monitoring Goal:Demonstrate knowledge of telehealth Completed pt unable to verbalize if there is a HOMMED system in her home for her to use, stu consult with nurse Instruct on pain management techniques Description: Instruct [...] provides safe verbalization/return demonstration of the instructions. instructed pt on use of a longer pillow to use under for left elbow, forearm and hand for improved support as pt holding her left arm IR and flexed at the elbow across her chest and shoudler hikes, with positioning ue on the pillow pt reported decreased pain and noted left UE to be more relaxed. Gait/Stair Training Description: Instruct patient/caregiver and perform gait/stair training. Problem:PT Impaired Functional Mobility Completed Pt. instructed on gait training outright t/o home for distances around 30 and 78' with sba, Pt completed gait training with left arm adductedd and holding tight at chest, noted decreased step length, height, heel strike, gregoria, and lanny with lateral ways noted during each stance leg. Provided pt with verbal cues to improve technique with pt demonstrating poor understanding of the instruction/cues provided. Bed Mobility/Transfer Training Description: Instruct patient/caregiver and perform bed mobility/transfer training. Problem:PT Impaired Functional Mobility Completed pt completed sit to stand with use of right UE only secondary to pain in left UE. pt completed sit to stand requiring 4 attempts and increased effort. proivded cues to scoot to the edge of the chair with poor follow through noted. pt did completed with good trunk flexion and anterior push. documented in this encounter Care Teams Java J2Ee Software Engineer Relationship Specialty Start Date End Date Cherelle Corcoran MD PCP - General Family Medicine 08/30/19 Mark Queen MD Consulting Physician Infectious Diseases 01/10/20 Rudolph Welch MD [address] [place] [address] Consulting Physician Infectious Diseases 12/05/22 Markie Ryan MD [address] [place] [address] Consulting Physician Nephrology 12/05/22 Dulce Vega RN [address] [place] [address] [address] [place] [address] Fingerer 10/07/23 05/03/24 [place] [address] [facility] [address] [place] [address] Consulting Physician Nephrology 10/22/23 documented as of this encounter
--- OUTSIDE RECORDS SUMMARY | 2024-07-04 04:04 | XMS_ITS | Encounter Summary ---
Author Organization [facility] Healthcare Address [address] [place] [address] Care Team Providers Care Quality And Reliability Engineer Name Role Phone Cherelle Corcoran MD Primary Care Pro vider Mark Queen MD Unavailable [phone] Rudolph Welch MD Unavailable Markie Ryan MD Unavailable Dulce Vega RN Unavailable [phone] Jimbo Strauss MD Unavailable [phone] Jaya Grier MD Unavailable Reason for Visit * Reason Onset Date Comments Case Management- Medication 01/05/2024 Medi cation non-adherence Encounter Details Date Type Department Care Team (Late st Contact Info) Description 01/05/2024 Telephone [facility] Medical Group Primary Care at [address] [place] [address] Dulce Vega, RN [address] [place] [address] [address] [place] [address] Case Management- Medication (Medication non-adherence) Social History Tobacco Use Types Packs/Day Years [...] from doctor or pharmacy Often 01/20/2024 [facility] Utilities Answer Date Recorded In the [...] any time in the past 12 m [facility], were you homeless or living in a [...] file Legal Sex Female 9:03 AM PRODUCTION MAINTENANCE MECHANIC Gender Identity Female 02/08/2020 6:39 PM CDT Sexual Orientation Not on file documented as of this encounter Miscellaneous Notes * Telephone Encounter - Cherelle Corcoran MD - 01/05/2024 1:00 PM CDT I did discuss holding atorvastatin with daughter yesterday. She should be taking procardia after dialysis, but is currently back in ED for mdr UTI. * Telephone Encounter - Dulce Vega RN - 01/05/2024 9:32 AM CDT Zhou, my name is Dulce and I am a [facility] Nurse Mat Linker. I spoke with this patient and am sending a message about non-adherence to the following medications. Atorvastatin: Daughter states is being held due to concern for muscle pain making shoulder pain worse Procardia: Daughter states patient has never taken this as an outpatient. Per review or pharmacy data, this has never been filled as an outpatient. Nursing Recommendation/Action(s): Could somebody from the office contact the daughter and advise her if any changes to how patient istaking home meds needs to be made, please? Thank you, Dulce IRELAND, RN, [facility] Mat Linker [phone] documented in this encounter Plan of Treatment Upcoming Encounters Date Type Department Care Team (Latest Contact Info) Description 07/13/2024 9:00 AM [facility] Hospital Encounter [facility] [address] [place] [address] Jaya Grier MD [address] [place] [address] [address] [place] [address] 07/13/2024 9:00 AM PRODUCTION MAINTENANCE MECHANIC - 07/13/2024 9:30 AM PRODUCTION MAINTENANCE MECHANIC Surgery [facility] [address] [place] [address] Jaya Grier MD [facility] 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 [address] [place] [address] Consulting Physician Infectious Diseases 12/05/22 Markie Ryan MD [address] [facility] [address] [place] [address] Consulting Physician Nephrology 12/05/22 Dulce Vega RN [address] [place] [address] [address] [place] [address] Mat Linker 10/07/23 05/03/24 [place] [address] [address] [facility] [address] [place] [address] Consulting Physician Nephrology 10/22/23 Jaya Grier MD [address] [facility] [address] [place] [address] Consulting Physician Gastroenterology 02/01/24 documented as of this encounter
--- OUTSIDE RECORDS SUMMARY | 2024-07-04 04:04 | XMS_ITS | Encounter Summary ---
Author Organization [facility] Address [address] [place] [address] Phone Care Team Providers Care Coin Box Collector Name Role Phone Cherelle Corcoran MD Primary Care Pro vider Mark Queen MD Unavailable [phone] Rudolph Welch MD Unavailable [phone] Markie Ryan MD Unavailable [phone] Dulce Vega RN Unavailable Jimbo Strauss MD Unavailable [phone] Reason for Visit * Reason Onset Date Comments Glucose log 01/03/2024 Encounter Details Date Type Department Care Team (Late st Contact Info) Description 01/03/2024 Telephone [facility] Endocrinology Metabolism and Lipid [address] [facility] 5th [address] [place] [address] Yoly Herrera, RN Glucose log Social History Tobacco Use Types Packs/Day Years [...] doctor or pharmacy Never 12/28/2023 [facility] Utilities Answer Date Recorded In the past 12 months has e Arch Grants, gas, oil, or water Badge threatened to shut off services in your [...] often do you attend chur ch or amish services? More than 4 times per year [...] living in a half-way (including now)? No 12/21/2023 Personal Safety Answer Date Recorded Have you ever been in or are you currently in a harmful physical or emotional relationship or is someone making you feel afraid or unsafe? Denies 12/03/2023 Comments No Sex and Gender Information Value Date Recorded Sex Assigned at Not on file Legal Sex Female 9:03 AM CONTRACTS ANALYST Gender Identity Female 02/08/2020 6:39 PM CDT Sexual Orientation Not on file documented as of this encounter Miscellaneous Notes * Telephone Encounter - Yoly Herrera RN - 01/03/2024 7:41 PM CDT Images from the original note were not included. Update: The patient is currently residing with her daughter Areli I told her Dr Ruffin's recommendation and scheduled a return appointment with JARAD Troy next month The patient is using her Madhav 3 sensor with a reader History: 73 y.o. female with T2DM complicated by neuropathy, ESRD on HD (TTS), microalbuminuria, HLD, HTN, HFpEF, history of LE DVT, schizoaffective disorder last seen by Dr Gibbs on 12/07/2023 for T2DM follow-up. The patient was in a nursing SNF and did not have any readings when she came to her appointment The daughter was able to obtain readings and faxed them to the clinic for review to see if any therapy changes need to be made The patient is no using her Madhav Diabetic Medications: -Lantus 18 units qHS -Humalog 4 units + 1:50 >150 TIDAC Next appointment: To be scheduled Readings: Plan: Message forwarded to Dr Ruffin for review and recommendations documented in this encounter Plan of Treatment Upcoming Encounters Date Type Department Care Team (Latest Contact Info) Description 07/13/2024 9:00 AM CONTRACTS ANALYST Hospital Encounter [facility] GI Lab [address] [place] [address] Jaya Grier MD [address] [place] [address] DR GAINES [address] [place] [address] 07/13/2024 9:00 AM CONTRACTS ANALYST - 07/13/2024 9:30 AM CONTRACTS ANALYST Surgery [facility] GI Lab [address] [place] [address] Jaya Grier MD [address] [place] [address] DR GAINES [address] [place] [phone] ESOPHAGOGASTRODUODENOSCOPY Scheduled Procedures Name Priority Associated Diagnoses Date/Ti me ESOPHAGOGASTRODUODENOSCOPY Anemia, unspecified type Gastritis without bleeding, unspecified chronicity, unspecified gastritis type 07/13/2024 9:00 AM CONTRACTS ANALYST COLONOSCOPY Iron deficiency anemia due to chronic blood loss documented as of this encounter Visit Diagnoses Not on filedocumented in this encounter 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 06/26/2024 3:05 AM CONTRACTS ANALYST documented as of this encounter Care Teams Coin Box Collector Relationship Specialty Start Date End Date Cherelle Corcoran MD PCP - General Family Medicine 08/30/19 Mark Queen MD Consulting Physician Infectious Diseases 01/10/20 Rudolph Welch MD [address] [facility] [address] [place] [address] Consulting Physician Infectious Diseases 12/05/22 Markie Ryan MD [address] [facility] [address] [place] [address] Consulting Physician Nephrology 12/05/22 Dulce Vega, ALIREZA [address] [place] [address] [address] [place], [place] [id number] Woodworking Belt Sander 10/07/23 05/03/24 [place] [address] [facility] [address] [place] [address] Consulting Physician Nephrology 10/22/23 documented as of this encounter
--- OUTSIDE RECORDS SUMMARY | 2024-07-04 04:05 | XMS_ITS | Encounter Summary ---
Author Organization [facility] Address [address] [place] [address] Care Team Providers Care Teletypesetter Name Role Phone Cherelle Corcoran MD Primary Care Pro vider Mark Queen MD Unavailable [phone] Rudolph Welch MD Unavailable Markie Ryan MD Unavailable [phone] Dulce Vega RN Unavailable [phone] Jimbo Strauss MD Unavailable [phone] Reason for Referral * Physical Therapy (Routine) - Closed Specialty Diagnoses / Procedures Referred By Contac t Referred To Contact Physical Therapy Diagnoses Acute pain of left shoulder Perico Raphael, ANAY [address] [facility] [place] [address] Phone: tel: fax: [address] [address] Referral ID Status Reason Start Date Expiration Date V isits Requested Visits Authorized [id number] Closed Evaluate and Treat 12/11/2023 06/21/2024 16 30 Question Answer PTRFR PT Evaluate and Treat Therapy options discussed with patient? Yes Location provided for therapy services is: Patient requested/Patient preferred Please select the performing region: [facility] [185] # of visits: 24 Comments 1-2 TIMES PER WEEK ROM AND STRENGTH * Diagnostic Imaging (Routine) - Closed Specialty Diagnoses / Procedures Referred By Maryse lama Referred To Contact Diagnoses Acute pain of left shoulder Procedures [place] Fluoro Guided Injection Shoulder Left Perico Raphael PA [address] [facility] [address] [place] [address] Phone: tel: fax: [facility] [address] [place] [address] Referral ID Status Reason Start Date Expiration Date Visits Re quested Visits Authorized [id number] Closed 12/11/2023 01/09/2025 1 1 Reason for Visit * Reason Comments Pain * Consultation (Routine) - Closed Specialty Diagnoses / Procedures Referred By Maryse lama Referred To Contact Orthopedic Surgery Diagnoses Acute pain of left shoulder Cherelle Corcoran MD [address] [address] Phone: tel: fax: [facility] Orthopedics and Sports Medicine [address] [place] [phone] Phone: tel: fax: Referral ID Status Reason Start Date Expiration Date V isits Requested Visits Authorized [id number] Closed Specialty Services Required 12/07/2023 01/05/2025 1 1 Encounter Details Date Type Department Care Team (Late st Contact Info) Description 12/11/2023 8:30 AM CDT Office Visit [facility] Orthopedics and Sports Medicine [address] [place] [phone] Perico Raphael PA [address] [facility] [address] [place] [address] Arthropathy of left shoulder (Primary Dx); Primary osteoarthritis of left shoulder; Left shoulder pain, unspecified chronicity Social History Tobacco Use Types Packs/Day Years Used Date Smoking Tobacco: Never Smokeless Tobacco: Never Alcohol Use Standard Drinks/Week Comments Not Currently 0 (1 standard drink = 0.6 oz pur e alcohol) [facility] Utilities Answer Date Recorded In the past 12 months has th e electric, gas, oil, or water company threatened to shut off services in your home? No 10/30/2023 Social Connection and Isolat ion Panel [NHANES] Answer Date Recorded In a typical week, how many times do you talk on the phone with family, friends, or neighbors? More than three times a week 10/30/2023 How often do you get togethe r with friends or relatives? More than three times a week 10/30/2023 How often do you attend chur ch or baptist services? More than 4 times per year 10/30/2023 Do you belong to any clubs o r organizations such as taoist groups, unions, fraternal or athletic groups, or school groups? No 10/30/2023 How often do you attend meet ings of the clubs or organizations you belong to? Never 10/30/2023 Are you , , di vorced, , never , or living with a partner? 10/30/2023 AUDIT-C Answer Date Recorded Frequency of Alcohol Consumption Not on file 11/10/2023 Q2: How many drinks containi ng alcohol do you have on a typical day when you are drinking? Patient does not drink Frequency of Binge Drinking Not on file 10/21 Overall Financial Resource Strain (CARDIA) Answe r Date Recorded How hard is it for you to pa y for the very basics like food, housing, medical care, and heating? Not very hard 10/30/2023 PHQ-2 Answer Date Recorded PHQ-2 Total Score (If total score is 3 or more points, staff should administer the PHQ-9) 2 11/10/2023 Hunger Vital Sign Answer Date Recorded Within the past 12 months, y ou worried that your food would run out before you got the money to buy more. Never true 10/30/19 24 Within the past 12 months, t he food you bought just didn't last and you didn't have money to get more. Never true 10/30/2023 PRAPARE - Transportation Answer Date Re corded In the past 12 months, has l ack of transportation kept you from medical appointments or from getting medications? No 10/20 In the past 12 months, has l ack of transportation kept you from meetings, work, or from getting things needed for daily living? No 10/30/2023 Housing Stability Vital Sign Answer [...] a skilled nursing (including now)? No 10/30/2023 Personal Safety Answer Date Recorded Have you ever been in or are you currently in a harmful physical or emotional relationship or is someone making you feel afraid or unsafe? 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 Subjective/Objective Patient ID: Barbara Chakraborty is a 73 y.o. female. Chief Complaint Patient presents with Left Shoulder - Pain HPI: This is a [...] were taken showing no acute findings. She is in today for follow-up. Ht 157.5 cm (5' 2 ) Wt 55.8 kg (123 lb) BMI 22.50 kg/m?? Current Outpatient Medications Medication Sig Dispense Refill acetaminophen (TYLENOL) 325 mg tablet Take 2 tablets (650 mg total) by mouth every 6 (six) hours asneeded for pain 30 tablet 1 aspirin 81 mg enteric coated tablet Take 1 tablet (81 mg total) by mouth daily 30 tablet 11 atorvastatin (LIPITOR) 40 mg tablet Take 1 tablet (40 mg total) by mouth nightly 30 tablet 11 benztropine (COGENTIN) 1 mg tablet Take 1 tablet (1 mg total) by mouth nightly 30 tablet 11 blood-glucose sensor (FreeStyle Madhav 3 Sensor) device Use for continuous glucose monitoring. Change sensor every 14 days 6 each 3 calcium acetate,phosphat bind, (PHOSLO) 667 mg capsule TAKE 1 CAPSULE(667 MG) BY MOUTH THREE TIMES DAILY WITH MEALS 270 capsule 0 docusate sodium (COLACE) 100 mg capsule Take 1 capsule (100 mg total) by mouth every 12 (twelve) hours 60 capsule 0 famotidine (PEPCID) 10 mg tablet Take 1 tablet (10 mg total) by mouth daily ferrous sulfate 325 mg (65 mg of elemental iron) tablet Take 1 tablet (65 mg of elemental iron total) by mouth 2 (two) times a day flash glucose scanning reader [facility] Use Madhav 3 reader to scan Madhav 3 sensor 1 each 0 flash glucose sensor (FreeStyle Madhav 2 Sensor) kit Use to continually monitor glucose, change every 14 days 6 kit 3 fluticasone propionate (FLONASE) 50 mcg/actuation nasal spray Administer 2 sprays into each nostrildaily as needed for rhinitis FreeStyle Madhav 3 Riparius [facility] Use Madhav 3 reader to scan Madhav 3 sensor insulin glargine 100 unit/mL (3 mL) pen [...] skin daily as needed to lower back metoprolol tartrate (LOPRESSOR) 25 mg immediate release tablet TAKE 1/4 TABLET(6.25 MG) BY MOUTH TWICE DAILY 45 tablet 0 pen needle, diabetic (Easy Touch) 32 gauge x / needle USE DIRECTED FOUR TIMES DAILY 100 each3 polyethylene glycol (MIRALAX) 17 gram/dose bulk powder Take 17 g by mouth daily as needed (Constipation) 595 g 0 risperiDONE (RisperDAL) 1 mg tablet Take 1 tablet (1 mg total) by mouth 2 (two) times a day (Patient taking differently: Take 1.5 tablets (1.5 mg total) by mouth nightly Pt to take 1.5 mg nightly for14 days starting 12/02/23 then increase to 2 mg nightly) 60 tablet 11 No current facility-administered medications for this visit. Review of Systems: Review of Systems Examination Vital signs reviewed. General Appearance: The patient is in no acute distress. Alert and oriented X3. Respiratory: Respirations are even and unlabored. The patient does not use accessory muscles of respiration. Psych: The patient is pleasant and cooperative and acts appropriately. Musculoskeletal: Skin over the left shoulder shows no erythema, no ecchymosis, no edema. The patient can forward flex the shoulder to about 90?? I can passively forward flex the shoulder to about 130. This does cause her a great deal of discomfort. She can externally rotate to about 30??. She has 4/5 strength and pain with thumbs-down resistance similar findings with Dinwiddie's testing. She also has 4/5 strength and pain with resistance external rotation. The patient has mild pain to belly presstest. She can internally rotate to pocket level. Good trace clerk strength. Positive radial pulse. Neurologically grossly intact. X-rays of the left shoulder from 02 December 2023 shows: Moderate osteoarthritic changes of the AC joint with hqkx-tj-dzvolsvo osteoarthritic changes of theglenohumeral joint. There is obvious superior subluxation of the humeral head which is indicative of chronic rotator cuff tear. Procedures (M19.012) Arthropathy of left shoulder (primary encounter diagnosis) (M19.012) Primary osteoarthritis of left shoulder (M25.512) Left shoulder pain, unspecified chronicity Plan: Ambulatory referral to Orthopedic Surgery, FL Fluoro Guided Injection Shoulder Left, Ambulatory referral order to Physical Therapy - Diagnoses and all orders for this visit: Arthropathy of left shoulder (Primary) Primary osteoarthritis of left shoulder Left shoulder pain, unspecified chronicity - Ambulatory referral to Orthopedic Surgery - FL Fluoro Guided Injection Shoulder Left; Future - Ambulatory referral order to Physical Therapy -; Future Assessment/Plan At this juncture I will send the patient for a fluoroscopically guided cortisone injection of the left shoulder. We also discussed jqisp-bq-ijwweg exercises and we will send the patient to formalizedtherapy for range motion and strengthening. Use of Tylenol as much 1000 mg 3 times a day and liberal icing to help with pain. I will see the patient back in 8 weeks and we will re-evaluate at that time. Follow up sooner as needed. 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 OPERATOR - 07/13/2024 9:30 AM 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 OPERATOR Surgery [facility] GI Lab [address] [place] [address] Jaya Grier MD [facility] [address] GA[address] [place] [address] ESOPHAGOGASTRODUODENOSCOPY Scheduled Procedures Name Priority Associated Diagnoses Date/Ti va ESOPHAGOGASTRODUODENOSCOPY Anemia, unspecified type Gastritis without bleeding, unspecified chronicity, unspecified gastritis type 07/13/2024 9:00 AM 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 FL FLUORO GUIDED INJECTION SHOULDER LEFT REASON FOR STUDY: ?? LEFT SHOULDER PAIN ?? F/t: 10 seconds ??mGy: 0.4 ??Image count: 2 ?Shoulder pain. COMPARISON: ?? 12/02/2023 radiographs RADIATION DOSE: Needle placement was documented with a fluoroscopic image. Dose: ??9.3 ?? uGym? Dose Area Product (DAP) TECHNIQUE/FINDINGS: Risk, benefits, and alternatives of the procedure were explained to the patient and informed consent was obtained. ??The area was prepped and draped in the usual sterile fashion. ??A 22-gauge spinal needle was directed into the shoulder joint space and a small amount of Omnipaque 240 was injected to confirm intra-articular placement. ??40 mg of Kenalog and 3 mL of 0 0.25% bupivacaine were injected without complication. ??Patient reported ?? marked improvement ??following the injection. Of note, contrast injection demonstrates preferential filling of the subacromial subdeltoid bursa with additional filling in the joint space. ?? These findings are compatible with a rotator cuff tear. ?? IMPRESSION: Successful ?? left ??shoulder steroid injection. Findings compatible with a left full-thickness rotator cuff tear. THIS IS AN ELECTRONICALLY VERIFIED FINAL REPORT 12/18/2023 9:36 AM - Electronically signed by ??James Javier M.D. MZ: VALENTINA D: ??12/18/2023 9:35 AM T: ??12/18/2023 9:36 AM Report ID: [id number] Reading Location: ??[id number] Procedure Note James Javier MD - 12/18/2023 EXAM DESCRIPTION: FL FLUORO GUIDED INJECTION SHOULDER LEFT REASON FOR STUDY: LEFT SHOULDER PAIN F/t: 10 seconds mGy: 0.4 Image count: 2 Shoulder pain. COMPARISON: 12/02/2023 radiographs RADIATION DOSE: Needle placement was documented with a fluoroscopicimage. Dose: 9.3 uGym? Dose Area Product (DAP) TECHNIQUE/FINDINGS: Risk, benefits, and alternatives of the procedure were explained to the patient and informed consent was obtained. The area was prepped and draped in the usual sterile fashion. A 22-gauge spinal needlewas directed into the shoulder joint space and a small amount of Omnipaque 240was injected to confirm intra-articular placement. 40 mg of Kenalog and 3 mLof 0 0.25% bupivacaine were injected without complication. Patient reported marked improvement following the injection. Of note, contrast injection demonstrates preferential filling of the subacromial subdeltoid bursa with additional filling in the joint space. These findings are compatible with a rotator cuff tear. IMPRESSION: Successful left shoulder steroid injection. Findings compatible with a left full-thickness rotator cuff tear. THIS IS AN ELECTRONICALLY VERIFIED FINAL REPORT 12/18/2023 9:36 AM - Electronically signed by James Javier M.D. MZ: MZ Report ID: [id number] Reading Location: [place] [address] Perico CUEVA IMG FLUOROSCOPY PARISA DOLAN Final Result documented in this encounter Visit Diagnoses Diagnosis Arthropathy of left shoulder- Primary Primary osteoarthritis of left shoulder Left shoulder pain, unspecified chronicity Left shoulder pain, unspecified chronicity Anemia, unspecified type Gastritis without bleeding, unspecified chronicity, unspecified gastritis type documented in this encounter Orders Outpatient Referral Count Last Ordered Date Fir st Ordered Date AMB REFERRAL TO ORTHOPEDIC SURGERY 1 2023 documented in this encounter Care Teams Teletypesetter Relationship Specialty Start Date End Date Cherelle Corcoran MD PCP - General Family Medicine 08/30/19 Mark Queen MD Consulting Physician Infectious Diseases 01/10/20 Rudolph Welch MD [address] [facility] [address] [place] [address] Consulting Physician Infectious Diseases 12/05/22 Markie Ryan MD [address] [facility] [address] [place] [address] Consulting Physician Nephrology 12/05/22 Dulce Vega, ALIREZA [address] [place] [address] [address] [place] [address] Cigarette Tester 10/07/23 05/03/24 [place] [address] [facility] [address] [place] [address] Consulting Physician Nephrology 10/22/23 documented as of this encounter
--- OUTSIDE RECORDS SUMMARY | 2024-07-04 04:05 | XMS_ITS | Encounter Summary ---
Author Organization [facility] Healthcare Address [address] [place] [address] Care Team Providers Care Controller Repairer And Tester Name Role Phone Cherelle Corcoran MD Primary Care Pro vider Mark Queen MD Unavailable [phone] Rudolph Welch MD Unavailable [phone] Markie Ryan MD Unavailable Dulce Vega RN Unavailable [phone] Jimbo Strauss MD Unavailable [phone] Reason for Referral * Diagnostic Imaging (Routine) - Closed Specialty Diagnoses / Procedures Referred By Contac t Referred To Contact Diagnoses Pain in left arm Procedures XR Shoulder Left 2 [place] [id number] [address] Phone: tel: fax: [address] [phone] Referral ID Status Reason Start Date Expiration Date Visits Re quested Visits Authorized [id number] Closed 12/02/2023 12/31/2024 1 1 Reason for Visit * Reason Comments Follow-up Encounter Details Date Type Department Care Team (Latest Contact Info) Description 12/02/2023 3:00 PM CDT Telemedicine [facility] Medical [facility] [address] [facility] [address] [place] [phone] [place] [address] [facility] [address] [place] [address] Schizoaffective disorder, bipolar type (CMS/HCC) (HCC) (Primary Dx); Pain in left arm Social History Tobacco Use Types Packs/Day Years Used Date Smoking Tobacco: Never Smokeless Tobacco: Never Alcohol Use Standard Drinks/Week Comments Not Currently 0 (1 standard drink = 0.6 oz pur e alcohol) [facility] Utilities Answer Date Recorded [...] any clubs o r organizations such as latter-day groups, unions, fraternal or athletic groups, or [...] on file 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 Psychiatry Note Assessment/Plan Barbara Chakraborty is a 73 y.o. Black Or female. Diagnoses and all orders for this visit: Schizoaffective disorder, bipolar type (CMS/HCC) ([facility]) (Primary) Assessment & Plan: Chronic, persistent, functioning slightly [...] and re-evaluate at next interval as discussed. Pain in left arm Assessment & Plan: Acute, no known injury. Physical examination limited by telemedicine but restricting movement. Concerns for injury of some sort. X-ray ordered. Further management as per results. Daughter will take the patient for these x-rays. She will call the patient's primary care physicianfor follow-up. Orders: - XR Shoulder Left 2 or More Views; Future - XR Clavicle Left Complete; Future Other orders - benztropine (COGENTIN) 1 mg tablet; Take 1 tablet (1 mg total) by mouth nightly (Patient taking differently: Take 1 tablet (1 mg total) by mouth 2 mg every morning and 1 mg at night) - risperiDONE (RisperDAL) 1 mg tablet; Take 1 tablet (1 mg total) by mouth 2 (two) times a day (Patient taking differently: Take 2 tablets (2 mg total) by mouth nightly Pt to take 1.5 mg nightly for 14 days starting 12/02/23 then increase to 2 mg nightly) Medication changes: 12/02/2023: Risperdal 1.5 mg HS. Cogentin 1 mg p.o. b.i.d.. New Medications Ordered This Visit benztropine (COGENTIN) 1 mg tablet Sig: Take 1 tablet (1 mg total) by mouth nightly Dispense: 30 tablet Refill: 11 risperiDONE (RisperDAL) 1 mg tablet Sig: Take 1 tablet (1 mg total) by mouth 2 (two) times a day Dispense: 60 tablet Refill: 11 Full informed consent provided by the patient [...] syringe with needle, insulin (INSULIN SYRINGE-NEEDLE U-100 [facility]) 3 times a day No current facility-administered medications for this visit. Adherence to medication reported by the patient to be 100% The patient denies side effects possiblyrelated to these medications. Current issues reported by the patient: 12/02/2023: Last seen by me in 03/11/2022. [...] not report any symptoms of hypomania or setphanie. 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 [facility] went to [facility] [place] on [facility]15 Her appetite is not increasing. She is [...] Associated poorly controlled diabetes. Only previous psychiatric [id number] or 1997. Records unavailable to me at [...] Denies any nicotine or cigarettes. Born in [place]. Father was reeevs and alcoholic. Positive relationship with father except [...] gets in her moods She worked in [employer] at [employer] and [employer] - daughter - provides collateral information. The [...] heart failure) ([facility]) (HCC) CKD (chronic kidney disease) stage V requiring chronic dialysis ([facility]) Dementia ([facility]) Depression Diabetic neuropathy ([facility]) GERD (gastroesophageal reflux disease) HL (hearing loss) Hyperlipidemia Hypertension Movement disorder Osteomyelitis ([facility]) Rotator cuff tear, left Schizophrenia ([facility]) Type 2 diabetes mellitus ([facility]) PAST SURGICAL HISTORY Past Surgical History: Procedure [...] LABS Lab Results Component Value Date WBC 15.0 (H) 12/20/2023 HGB 8.9 (L) 12/20/2023 HCT 27.0 (L) 12/20/2023 MCV 94.7 12/20/2023 RDWSD 50.3 (H) 12/20/2023 LABPLAT 245 12/20/2023 Lab Results Component Value Date ALT 8 12/19/2023 AST 12 12/19/2023 ALKPHOS 127 12/19/2023 BILITOT 0.2 12/19/2023 ALBUMIN 3.8 12/19/2023 Lab Results Component Value Date SODIUM 139 12/20/2023 POTASSIUM 5.0 (H) 12/20/2023 CO2 22 12/20/2023 BUNSER 61 (H) 12/20/2023 GLUCOSE 184 12/20/2023 CREATININE 4.50 (H) 12/20/2023 CHLORIDE 103 12/20/2023 CALCIUM 9.6 12/20/2023 PROTEIN 7.6 01/19/2017 Admission on 11/17/2023, Discharged on 11/17/2023 Component Date Value Glucose, POC 11/17/2023 137 Glucose comment 1 11/17/2023 Use This Result Glucose comment 2 11/17/2023 RN/ Notified WBC 11/17/2023 9.5 Hgb 11/17/2023 9.3 [...] EKG/Min 11/17/2023 55 Atrial Rate 11/17/2023 55 MD-Interval (MSEC) 11/17/2023 160 QRS-Interval (MSEC) 11/17/2023 62 QT-Interval (MSEC) 11/17/2023 460 QTc 11/17/2023 440 P Shaw[place] 11/17/2023 80 R [place] 11/17/2023 7 T [place] 11/17/2023 231 Diagnosis 11/17/2023 Value:Sinus bradycardia Nonspecific T wave abnormality Abnormal ECG When compared with ECG of 30-OCT-2023 09:14, Nonspecific T wave abnormality now evident in Inferior leads Confirmed by COLIN PINTO M.D. ([id number]) on 11/17/2023 9:59:40 PM Trop T hs [...] visit has over 200 results. Admission on 07/28/2023, Discharged on 07/28/2023 Component Date Value WBC 07/27/2023 13.5 (H) Hgb 07/27/2023 9.7 (L) Hct 07/27/2023 29.9 (L) Plt 07/27/2023 490 (H) MPV 07/27/2023 10.3 RBC 07/27/2023 3.20 (L) MCV 07/27/2023 93.4 MCH 07/27/2023 30.3 MCHC 07/27/2023 32.4 RDW CV 07/27/2023 13.5 RDW SD 07/27/2023 45.8 NRBC abs 07/27/2023 0.00 Color, ur 07/28/2023 Yellow Clarity, ur 07/28/2023 Cloudy (A) Specific gravity, ur 07/28/2023 1.015 pH, urine 07/28/2023 5.0 Protein, ur ql 07/28/2023 3+ (A) Glucose, ur ql 07/28/2023 2+ (A) Ketones, ur 07/28/2023 Negative Bilirubin, ur 07/28/2023 Negative Blood, ur 07/28/2023 Negative Urobilinogen, ur 07/28/2023 <2.0 Nitrite, ur 07/28/2023 Negative Leukocyte esterase, ur 07/28/2023 Negative UA reflex comment 07/28/2023 Reflex to microscopic UA will be performed. Influenza A RNA 07/27/2023 Not Detected Influenza B RNA 07/27/2023 Not Detected RSV RNA 07/27/2023 Not Detected COVID-19 RNA 07/27/2023 Not Detected Coronavirus 229E RNA 07/27/2023 Not Detected Coronavirus HKU1 RNA 07/27/2023 Not Detected Coronavirus NL63 RNA 07/27/2023 Not Detected Coronavirus OC43 RNA 07/27/2023 Not Detected Adenovirus DNA 07/27/2023 Not Detected Metapneumovirus RNA 07/27/2023 Not Detected Rhinovirus/Enterovirus R* 07/27/2023 Not Detected Parainfluenza 1 RNA 07/27/2023 Not Detected Parainfluenza 2 RNA 07/27/2023 Not Detected Parainfluenza 3 RNA 07/27/2023 Not Detected Parainfluenza 4 RNA 07/27/2023 Not Detected B. pertussis DNA 07/27/2023 Not Detected B. parapertussis DNA 07/27/2023 Not Detected C. pneumoniae DNA 07/27/2023 Not Detected M. pneumoniae DNA 07/27/2023 Not Detected Neutrophil abs 07/27/2023 9.4 (H) Imm gran abs 07/27/2023 0.1 Lymphocyte abs 07/27/2023 3.1 Monocyte abs 07/27/2023 0.6 Eosinophil abs 07/27/2023 0.2 Basophil abs 07/27/2023 0.1 Neutrophil pct 07/27/2023 69.8 Imm gran pct 07/27/2023 0.4 Lymphocyte pct 07/27/2023 23.3 Monocyte pct 07/27/2023 4.5 Eosinophil pct 07/27/2023 1.6 Basophil pct 07/27/2023 0.4 Sodium 07/28/2023 141 Potassium, pl 07/28/2023 3.5 Chloride 07/28/2023 108 CO2 07/28/2023 20 (L) Anion gap 07/28/2023 13 BUN 07/28/2023 48 (H) Creatinine 07/28/2023 3.63 (H) Glucose 07/28/2023 215 (H) Calcium 07/28/2023 8.6 Bilirubin, total 07/28/2023 <0.2 Protein, pl 07/28/2023 6.8 Albumin 07/28/2023 2.3 (L) Alk phos 07/28/2023 177 (H) ALT 07/28/2023 22 AST 07/28/2023 24 Glucose, POC 07/28/2023 203 (H) WBC, ur 07/28/2023 0-5 RBC, ur 07/28/2023 0-2 Epithelial cells, squamo* 07/28/2023 1-5 Bacteria, ur 07/28/2023 1+ (A) Yeast, ur 07/28/2023 4+ (A) Mucous, ur 07/28/2023 Present (A) Culture Reflex Comment 07/28/2023 Reflex conditions for urine culture (WBC >10) not met. eGFR 07/28/2023 13 Glucose, POC 07/28/2023 214 (H) Glucose, POC 07/28/2023 165 Lab on 07/24/2023 Component Date Value Sodium 07/24/2023 141 Potassium, pl 07/24/2023 4.1 Chloride 07/24/2023 105 CO2 07/24/2023 23 Anion gap 07/24/2023 13 BUN 07/24/2023 44 (H) Creatinine 07/24/2023 3.70 (H) Glucose 07/24/2023 199 Calcium 07/24/2023 8.5 eGFR 07/24/2023 12 Lab on 07/24/2023 Component Date Value Color, ur 07/24/2023 Yellow Clarity, ur 07/24/2023 Clear Specific gravity, ur 07/24/2023 1.018 pH, urine 07/24/2023 6.0 Protein, ur ql 07/24/2023 3+ (A) Glucose, ur ql 07/24/2023 3+ (A) Ketones, ur 07/24/2023 Negative Bilirubin, ur 07/24/2023 Negative Blood, ur 07/24/2023 1+ (A) Urobilinogen, ur 07/24/2023 <2.0 Nitrite, ur 07/24/2023 Negative Leukocyte esterase, ur 07/24/2023 Negative UA reflex comment 07/24/2023 Reflex to microscopic UA will be performed. WBC, ur 07/24/2023 21-50 (A) RBC, ur 07/24/2023 3-5 (A) Epithelial cells, squamo* 07/24/2023 11-20 (A) Bacteria, ur 07/24/2023 Trace (A) Mucous, ur 07/24/2023 Present (A) Culture Reflex Comment 07/24/2023 Reflex to urine culture will be performed. Report 07/24/2023 Value:Final Report: Less than 100,000 colonies/mL (clinically insignificant growth based on current clinical standards) Organism 07/24/2023 (CLINICALLY INSIGNIFICANT GROWTH Lab on 06/30/2023 Component Date Value Sodium 06/30/2023 145 Potassium, pl 06/30/2023 3.6 Chloride 06/30/2023 109 CO2 06/30/2023 27 Anion gap 06/30/2023 9 BUN 06/30/2023 35 (H) Creatinine 06/30/2023 3.03 (H) Glucose 06/30/2023 156 Calcium 06/30/2023 8.8 Iron 06/30/2023 56 TIBC 06/30/2023 180 (L) Transferrin saturation 06/30/2023 31 WBC 06/30/2023 9.0 Hgb 06/30/2023 10.2 (L) Hct 06/30/2023 32.2 (L) Plt 06/30/2023 334 MPV 06/30/2023 10.3 RBC 06/30/2023 3.41 (L) MCV 06/30/2023 94.4 MCH 06/30/2023 29.9 MCHC 06/30/2023 31.7 (L) RDW CV 06/30/2023 13.8 RDW SD 06/30/2023 47.1 NRBC abs 06/30/2023 0.00 Neutrophil abs 06/30/2023 5.1 Imm gran abs 06/30/2023 0.0 Lymphocyte abs 06/30/2023 3.3 Monocyte abs 06/30/2023 0.4 Eosinophil abs 06/30/2023 0.2 Basophil abs 06/30/2023 0.0 Neutrophil pct 06/30/2023 56.3 Imm gran pct 06/30/2023 0.2 Lymphocyte pct 06/30/2023 36.3 Monocyte pct 06/30/2023 4.8 Eosinophil pct 06/30/2023 2.1 Basophil pct 06/30/2023 0.3 eGFR 06/30/2023 16 Office Visit on 06/30/2023 Component Date Value Hemoglobin A1C, POC 06/30/2023 8.1 Office Visit on 03/24/2023 Component Date Value Hemoglobin A1C, POC 03/24/2023 7.7 There may be more visits with results that are not included. Adryan Swenson MD Combined Internal Medicine-Psychiatry Office: This was a telemedicine visit with Barbara Chakraborty and her daughter, Areli, which took place via real-time video connection. During the visit, I was located in [facility] and the patient was located at home in the [facility]. Time started: 3:00 p.m. Time ended: 3:30 p.m. My total encounter time on 12/02/2023 was 30 minutes which was spent in [...] Plan Note - Adryan Swenson MD - 12/20/2023 7:34 PM CDT Associated Problem(s): Left shoulder pain Acute, no known injury. Physical examination limited by telemedicine but restricting movement. Concerns for injury of some sort. X-ray ordered. Further management as per results. Daughter will take the patient for these x-rays. She will call the patient's primary care physicianfor follow-up. 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 Surgery [facility] [address] [place] [id number] Jaya Grier MD [address] [place] [address] [address] [place] [id number] ESOPHAGOGASTRODUODENOSCOPY Scheduled Procedures Name Priority Associated Diagnoses Date/Ti wi ESOPHAGOGASTRODUODENOSCOPY Anemia, unspecified type Gastritis without bleeding, unspecified chronicity, unspecified gastritis type 07/13/2024 9:00 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 ??No evidence of acute bony injury. 2. ??Superior subluxation of the humerus, consistent with chronic rotator cuff disease. Electronically signed by: Wilner Rodriguez M.D. Narrative 12/02/2023 6:24 PM CDT EXAM: ?? XR SHOULDER LEFT 2 OR MORE VIEWS DATE: ?? 12/02/2023 4:15 PM CLINICAL HISTORY: ?? Left shoulder pain. COMPARISON: ?? None FINDINGS: ?? Radiographs of the left shoulder were obtained in 4 projections. There is no evidence of a fracture or dislocation. ??The head of the humerus articulates normally with the glenoid fossa. ??There is decreased space the head of the humerus from the acromion. This is consistent with chronic rotator cuff disease. Procedure Note Wilner Rodriguez MD - 12/02/2023 EXAM: XR SHOULDER LEFT 2 OR MORE VIEWS DATE: 12/02/2023 4:15 PM CLINICAL HISTORY: Left shoulder pain. COMPARISON: None FINDINGS: Radiographs of the left shoulder were obtained in 4 projections. There is no evidence of a fracture or dislocation. The head of the humerus articulates normally with the glenoid fossa. There is decreased space the head of the humerus from the acromion. This is consistent with chronic rotator cuff disease. IMPRESSION: 1. No evidence of acute bony injury. 2. Superior subluxation of the humerus, consistent with chronic rotator cuff disease. Electronically signed by: Wilner Rodriguez M.D. Adryan Swenson MD IMG XR PROCEDURES Final Re sult * XR Clavicle Left Complete (12/02/2023 4:42 PM CDT) Anatomical Region Laterality Modality Clavicle, Chest Left Computed Radiogr aphy 12/02/2023 6:24 PM CDT Impressions 12/02/2023 6:24 PM CDT No evidence of acute bony injury. Electronically signed by: Wilner Rodriguez M.D. Narrative 12/02/2023 6:24 PM CDT EXAM: ?? XR CLAVICLE LEFT COMPLETE DATE: ?? 12/02/2023 4:30 PM CLINICAL HISTORY: ?? Pain in the left clavicle, no injury. COMPARISON: ?? None FINDINGS: ?? Radiographs of left clavicle were obtained in 2 projections. ??There is no evidence of a fracture or dislocation. ??The soft tissues are unremarkable. Procedure Note Wilner Rodriguez MD - 12/02/2023 EXAM: XR CLAVICLE LEFT COMPLETE DATE: 12/02/2023 4:30 PM CLINICAL HISTORY: Pain in the left clavicle, no injury. COMPARISON: None FINDINGS: Radiographs of left clavicle were obtained in 2 projections. There is no evidence of a fracture or dislocation. The soft tissues are unremarkable. IMPRESSION: No evidence of acute bony injury. Electronically signed by: Wilner Rodriguez M.D. Adryan Swenson MD IMG XR PROCEDURES Final Re sult documented in this encounter Visit Diagnoses Diagnosis Schizoaffective disorder, bipolar type (CMS/HCC) (HCC)- Primary Schizoaffective disorder, unspecified condition Pain in left arm Pain in left arm Pain in left arm Anemia, unspecified type Gastritis without bleeding, unspecified chronicity, unspecified gastritis type documented in this encounter Discontinued Medications Medication Sig Discontinue Reason Start Date End Da te OLANZapine (ZyPREXA) 2.5 mg tablet Take 1 tablet (2.5 mg total) by mouth 2 (two) times a day as needed (psychosis) 10/22/2023 12/02/2023 risperiDONE (RisperDAL) 1 mg tablet Take 1 tablet (1 mg total) by mouth nightly Reorder 10/22/2023 12/02/2023 benztropine (COGENTIN) 1 mg tablet Take 1 tablet (1 mg total) by mouth nightly Reorder 11/03/2023 12/02/2023 documented as of this encounter Care Teams Controller Repairer And Tester Relationship Specialty Start Date End Date Cherelle Corcoran MD PCP - General Family Medicine 08/30/19 Mark Queen MD Consulting Physician Infectious Diseases 01/10/20 Rudolph Welch MD [address] [facility] [facility] [address] [place] [id number] Consulting Physician Infectious Diseases 12/05/22 Markie Ryan MD [address] [facility] [facility] [address] [place] [address] Consulting Physician Nephrology 12/05/22 Dulce Vega, RN [address] [place] [address] [address] [place] [address] Burial Vault Maker 10/07/23 05/03/24 [place] [address] [facility] [address] [place] [address] Consulting Physician Nephrology 10/22/23 documented as of this encounter
--- OUTSIDE RECORDS SUMMARY | 2024-07-04 04:05 | XMS_ITS | Encounter Summary ---
Author Organization [facility] Healthcare Address [address] [place] [address] Care Team Providers Care Proteomics Scientist Name Role Phone Cherelle Corcoran MD Primary Care Pro vider Mark Queen MD Unavailable [phone] Rudolph Welch MD Unavailable Markie Ryan MD Unavailable [phone] Dulce Vega RN Unavailable Jimbo Strauss MD Unavailable [phone] Reason for Visit * Reason Comments Shoulder Pain Encounter Details Date Type Department Care Team (Late st Contact Info) Description 12/03/2023 10:38 AM CDT - 12/03/2023 12:04 PM T Emergency [facility] Emergency Department [address] [place] [id number] Chronic left shoulder pain (Primary Dx) Discharge Disposition: Discharge to home or self care Social History Tobacco Use Types Packs/Day Years Used Date Smoking Tobacco: Never Smokeless Tobacco: Never Alcohol Use Standard Drinks/Week Comments Not Currently 0 (1 standard drink = 0.6 oz pur e alcohol) [facility] Utilities Answer Date Recorded In the past 12 months has [employer], gas, oil, or water company threatened to [...] often do you attend chur ch or taoist services? More than 4 times per year [...] in a assisted (including now)? No 10/30/2023 Personal Safety Answer Date Recorded Have you ever been in or are you currently in a harmful physical or emotional relationship or is someone making you feel afraid or unsafe? Denies 12/03/2023 Comments No Sex and Gender Information Value Date Recorded Sex Assigned at Not on file Legal Sex Female 9:03 AM COLOR BUFFER Gender Identity Female 02/08/2020 6:39 PM CDT Sexual Orientation Not on file documented as of this encounter Last Filed Vital Signs Vital Sign Reading Time Taken Comments Blood Pressure 158/62 12/03/2023 11:57 AM CDT Pulse 70 12/03/2023 11:57 AM CDT Temperature 36.9 ??C (98.4 ??F) 12/03/2023 10:28 AM C DT Respiratory Rate 17 12/03/2023 11:57 AM CDT Oxygen Saturation 99% 12/03/2023 11:57 AM CDT Inhaled Oxygen Concentration - - Weight 59.2 kg (130 lb 8.2 oz) 12/03/2023 10:28 AM CDT Height 157.5 cm (5' 2 ) 12/03/2023 10:28 AM CDT Body Mass Index 23.87 12/03/2023 10:28 AM CDT documented in this encounter Discharge Instructions * Discharge Instructions* Lulú Qureshi PA - 12/03/2023 11:38 AM CDT You can continue Tylenol as needed for pain as well as lidocaine patch. Do not leave patch on for more than 12 hours at one time, and give your skin a 12 hour break in between patches. Please call your primary care provider today to let them know that you were seen in the ED and re-schedule a follow-up appointment. You may need to resume physical therapy as discussed. You have alsobeen provided with information for orthopedic follow-up. You will need to call to schedule an appointment. * Attachments The following attachments cannot be sent through Care Everywhere. * Shoulder Pain (General Information) (Icelandic) documented in this encounter Medications at Time of Discharge blood-glucose sensor (FreeStyle Madhav 3 Sensor) deviceIndication s:Type 2 diabetes mellitus with diabetic neuropathy, with long-term current use of insulin ([facility]) Use for continuous glucose monitoring. Change sensor every 14 days 6 each 3 06/30/2023 flash glucose scanning reader miscIndications: Type 2 diabetes mellitus with diabetic neuropathy, with long-term current use of insulin ([facility]) Use Madhav 3 reader to scan Madhav 3 sensor 1 each 06/30/2023 FreeStyle Madhav 3 Albers misc Use Madhav 3 reader to scan Madhav 3 sensor 09/25/2023 insulin lispro (HumaLOG, ADMELOG) 100 unit/mL vial [...] long-term current use of insulin ([facility]) USE DIRECTED FOUR TIMES DAILY 100 each 3 12/02/2023 polyethylene glycol (MIRALAX) 17 gram/dose bulk powder Take 17 g by mouth daily as needed (Constipation) 595 g 10/22/2023 acetaminophen (TYLENOL) 325 mg tabletIndication s:Osteomyelitis of great toe of right foot (CMS/HCC) (HCC) Take 2 tablets (650 mg total) by mouth every 6 (six) hours as needed for pain 30 tablet 1 03/24/2023 4 aspirin 81 mg enteric coated tablet Take 1 tablet (81 mg total) by mouth daily 30 tablet 11 11/03/2023 4 atorvastatin (LIPITOR) 40 mg tablet Take 1 tablet (40 mg total) by mouth nightly 30 tablet 11 11/03/2023 4 benztropine (COGENTIN) 1 mg tablet Take 1 tablet (1 mg total) by mouth nightly 30 tablet 11 12/02/2023 4 calcium acetate,phosphat bind, (PHOSLO) 667 mg capsule TAKE 1 CAPSULE(667 MG) BY MOUTH THREE TIMES DAILY WITH MEALS 270 capsule 10/29/2023 4 famotidine (PEPCID) 10 mg tablet Take [...] 14 days 6 kit 3 03/24/2023 4 metoprolol tartrate (LOPRESSOR) 25 mg immediate release tablet TAKE 1/4 TABLET(6.25 MG) BY MOUTH TWICE DAILY 45 tablet 10/29/2023 4 risperiDONE (RisperDAL) 1 mg tablet Take 1 tablet (1 mg total) by mouth 2 (two) times a day 60 tablet 12/02/2023 4 documented as of this encounter Discharge Disposition Disposition Code Departure Means Destination Comment s Discharge to home or self care documented in this encounter ED Notes * Lulú Qureshi PA - 12/03/2023 10:49 AM CDT CHIEF COMPLAINT: Chief Complaint Patient presents with Shoulder Pain HPI 6:17 PM Barbara Chakraborty is a 73 y.o. female presenting to the ED c/o left shoulder pain. This is a chronic issue for the patient for which she has seen her PCP and also done physical therapy in the past. States that physical therapy did previously help but has not done physical therapy in a couple of years. No new injury or trauma. Pain began to worsen a couple of days ago and patient had outpatient x-rays ordered by her PCP yesterday. She was scheduled to see them in the office this morning, but her ride was running late so missed the appointment. She took Tylenol for pain last night which did help her pain. She did not take anything for pain today. States the pain is worse with active range of motion of the left shoulder. She is able to actively flex and extend at the wrist and elbow without much difficulty. History provided by patient, son PCP: Cherelle Corcoran MD PAST MEDICAL HISTORY Past Medical History: Diagnosis Date Anemia Arthritis CHF (congestive heart failure) (CMS/HCC) (HCC) Dementia (HCC) Depression Diabetic neuropathy (HCC) GERD (gastroesophageal reflux disease) HL (hearing loss) Hyperlipidemia Hypertension Movement disorder Osteomyelitis (HCC) Renal disorder Schizophrenia (HCC) Type 2 diabetes mellitus (HCC) PAST SURGICAL HISTORY Past Surgical History: Procedure Laterality Date SECTION Right right foot EYE SURGERY cataracts TOE AMPUTATION Right 01/06/2020 4th toe amp/ foot debridement/ Dr. Anat Pelayo TUNNELED LINE PLACEMENT > 5 YEARS N/A 10/15/2023 FAMILY HISTORY Family History Problem Relation Age of Onset Diabetes Mother Heart disease Mother Kidney disease Mother Stomach cancer Father Alcohol abuse Father Diabetes Sister Diabetes Sister Diabetes Brother MEDICATIONS GIVEN IN THE ED Medications acetaminophen (TYLENOL) tablet 975 mg (975 mg oral Given 12/03/23 1104) predniSONE (DELTASONE) tablet 40 mg (40 mg oral Given 12/03/23 1134) CURRENT HOME MEDICATIONS No current facility-administered medications for this encounter. Current Outpatient Medications: acetaminophen (TYLENOL) 325 mg tablet, Take 2 tablets (650 mg total) by mouth every 6 (six) hours as needed for pain, Disp: 30 tablet, Rfl: 1 aspirin 81 mg enteric coated tablet, Take 1 tablet (81 mg total) by mouth daily, Disp: 30 tablet, Rfl: 11 atorvastatin (LIPITOR) 40 mg tablet, Take 1 tablet (40 mg total) by mouth nightly, Disp: 30 tablet,Rfl: 11 benztropine (COGENTIN) 1 mg tablet, Take 1 tablet (1 mg total) by mouth nightly, Disp: 30 tablet, Rfl: 11 blood-glucose sensor (FreeStyle Madhav 3 Sensor) device, Use for continuous glucose monitoring. Change sensor every 14 days, Disp: 6 each, Rfl: 3 calcium acetate,phosphat bind, (PHOSLO) 667 mg capsule, TAKE 1 CAPSULE(667 MG) BY MOUTH THREE TIMESDAILY WITH MEALS, Disp: 270 capsule, Rfl: 0 famotidine (PEPCID) 10 mg tablet, Take 1 tablet (10 mg total) by mouth daily, Disp: , Rfl: ferrous sulfate 325 mg (65 mg of elemental iron) tablet, Take 1 tablet (65 mg of elemental iron total) by mouth 2 (two) times a day, Disp: , Rfl: flash glucose scanning reader [...] rhinitis, Disp: , Rfl: FreeStyle Madhav 3 Albers misc, Use Madhav 3 reader to scan Madhav 3 sensor, Disp: , Rfl: insulin glargine 100 unit/mL (3 mL) pen [...] needed to lower back, Disp: , Rfl: metoprolol tartrate (LOPRESSOR) 25 mg immediate release tablet, TAKE 1/4 TABLET(6.25 MG) BY MOUTH TWICE DAILY, Disp: 45 tablet, Rfl: 0 pen needle, diabetic (Easy Touch) 32 gauge x 5/32 needle, USE DIRECTED FOUR TIMES DAILY, Disp: 100 each, Rfl: 3 polyethylene glycol (MIRALAX) 17 gram/dose bulk powder, Take 17 g by mouth daily as needed (Constipation), Disp: 595 g, Rfl: 0 risperiDONE (RisperDAL) 1 mg tablet, Take 1 tablet (1 mg total) by mouth 2 (two) times a day (Patient taking differently: Take 1.5 tablets (1.5 mg total) by mouth nightly Pt to take 1.5 mg nightly for 14 days starting 12/02/23 then increase to 2 mg nightly), Disp: 60 tablet, Rfl: 11 ALLERGIES No Known Allergies SOCIAL HISTORY Social History Tobacco Use Smoking status: Never Smokeless tobacco: Never Substance and Sexual Activity Drug use: Never Sexual activity: Not Currently Partners: Male Alcohol Use: Not At Risk (11/10/2023) AUDIT-C Frequency of Alcohol Consumption: Never Average Number of Drinks: Patient does not drink Frequency of Binge Drinking: Never PHYSICAL EXAM TRIAGE VITAL SIGNS: ED Triage Vitals Temp Pulse Resp BP SpO2 12/03/23 1028 12/03/23 1028 12/03/23 1028 12/03/23 1028 12/03/23 1028 36.9 ??C (98.4 ??F) 79 20 162/69 100 % Temp src Heart Rate Source Patient Position BP Location FiO2 (%) 12/03/23 1028 -- 12/03/23 1157 12/03/23 1157 -- Oral Sitting Right arm Height Height Method Weight Weight Method 12/03/23 1028 12/03/23 1028 12/03/23 1028 12/03/23 1028 1.575 m (5' 2 ) Stated 59.2 kg (130 lb 8.2 oz) Standing scale Physical Exam Vitals and nursing note reviewed. Constitutional: Appearance: She is not toxic-appearing. HENT: Head: Normocephalic. Eyes: General: No scleral icterus. Cardiovascular: Rate and Rhythm: Normal rate. Comments: Palpable left radial pulse Pulmonary: Effort: Pulmonary effort is normal. Musculoskeletal: Cervical back: Neck supple. Comments: Left shoulder without appreciable swelling or deformity. Palpable radial pulse and is able to actively flex and extend at the wrist and elbow without difficulty. Reports increased pain and winces with active and passive abduction and flexion of the left shoulder Skin: General: Skin is warm and dry. Neurological: Mental Status: She is alert. Psychiatric: Mood and Affect: Mood normal. LABS Labs Reviewed - No data to display RADIOLOGY XR Shoulder Left 2 or More Views Result Date: 12/02/2023 Narrative: EXAM: XR SHOULDER LEFT 2 OR MORE VIEWS DATE: 12/02/2023 4:15 PM CLINICAL HISTORY: Left shoulder pain. COMPARISON: None FINDINGS: Radiographs of the left shoulder were obtained in 4 projections. There is no evidence of a fracture or dislocation. The head of the humerus articulates normallywith the glenoid fossa. There is decreased space the head of the humerus from the acromion. This is consistent with chronic rotator cuff disease. Impression: 1. No evidence of acute bony injury. 2. Superior subluxation of the humerus, consistentwith chronic rotator cuff disease. Electronically signed by: Wilner Rodriguez M.D. ED COURSE/MEDICAL DECISION MAKING Differential diagnosis included but not limited to arthritis versus tendinitis versus rotator cuff injury. Low suspicion for septic joint. Low suspicion for ACS as this is a chronic issue and pain seems musculoskeletal in nature on exam Reviewed xrays from yesterday. Radiology reading >> No evidence of acute bony injury. 2. Superior subluxation of the humerus, consistent with chronic rotator cuff disease. Had discussion with patient and family regarding her x-ray results. Can try Tylenol and lidocaine patch here. Unable to do NSAIDs given history CKD. Also discussed risks versus benefits of steroids in the setting of diabetes as patient's diabetes does not appear well controlled. Patient received dose of prednisone here but they do not wish to continue prednisone at home. Discussed importance of PCP follow-up as patient may need physical therapy again. Will also provide information for orthopedic follow-up and can call to schedule an appointment. Patient and son expressed understanding and arecomfortable with plan and discharge Procedures FINAL IMPRESSION Chronic left shoulder pain DISPOSITION: Home PATIENT INSTRUCTED TO FOLLOW UP Cherelle Corcoran MD [address] [phone] In 4 days Segundo Townsend MD [address] [facility] [address] [facility] [phone] As needed DISCHARGE MEDICATIONS Your medication list CONTINUE taking these medications Instructions Last Dose Given Next Dose Due Easy Touch 32 gauge x 5/32 needle Generic drug: pen needle, diabetic USE DIRECTED FOUR TIMES DAILY flash glucose scanning reader [facility] [place] Use Madhav 3 reader to scan Madhav 3 sensor FreeStyle Madhav 2 Sensor kit Doctor's comments: Type 2 diabetic, on 2 insulin Generic drug: flash glucose sensor Use to continually monitor glucose, change every 14 days FreeStyle Madhav 3 Albers misc Generic drug: blood-glucose meter,continuous Use Madhav 3 reader to scan Madhav 3 sensor FreeStyle Madhav 3 Sensor device Generic drug: blood-glucose sensor Use for continuous glucose monitoring. Change sensor every 14 days ASK your doctor about these medications Instructions Last Dose Given Next Dose Due acetaminophen 325 mg tablet Commonly known as: TYLENOL Take 2 tablets (650 mg total) by mouth every 6 (six) hours as needed for pain aspirin 81 mg enteric coated tablet Take 1 tablet (81 mg total) by mouth daily atorvastatin 40 mg tablet Commonly known as: LIPITOR Take 1 tablet (40 mg total) by mouth nightly benztropine 1 mg tablet Commonly known as: COGENTIN Take 1 tablet (1 mg total) by mouth nightly calcium acetate(phosphat bind) 667 mg capsule Doctor's comments: Patient requests 90 days supply Commonly known as: PHOSLO TAKE 1 CAPSULE(667 MG) BY MOUTH THREE TIMES DAILY WITH MEALS famotidine 10 mg tablet Commonly known as: PEPCID Take 1 tablet (10 mg total) by mouth daily ferrous sulfate 325 mg (65 mg of elemental iron) tablet Take 1 tablet (65 mg of elemental iron total) by mouth 2 (two) times a day fluticasone propionate 50 mcg/actuation nasal spray Commonly known as: FLONASE Administer 2 sprays into each nostril daily insulin glargine 100 unit/mL (3 mL) pen for injection Doctor's comments: May substitute alternate covered basal insulin in pen. Commonly known as: LANTUS, BASAGLAR, SEMGLEE Inject 15 Units under the skin nightly insulin lispro [...] as needed to lower back metoprolol tartrate 25 mg immediate release tablet Doctor's comments: Patient requests 90 days supply Commonly known as: LOPRESSOR TAKE 1/4 TABLET(6.25 MG) BY MOUTH TWICE DAILY polyethylene glycol 17 gram/dose bulk powder Commonly known as: MIRALAX Take 17 g by mouth daily as needed (Constipation) ramelteon 8 mg tablet Commonly known as: ROZEREM Take 1 tablet (8 mg total) by mouth nightly as needed for sleep risperiDONE 1 mg tablet Commonly known as: RisperDAL Take 1 tablet (1 mg total) by mouth 2 (two) times a day This examination was transcribed using the [employer] voice recognition system without human residential support specialist. In an effort to expedite patient care, this report has not been adjusted for typographical, grammatical, and syntax by a trained medical massage therapist. Lulú Qureshi PA 12/03/231816 Cosigned by Julio Landeros DO at 12/03/2023 6:30 PM CDT Associated attestation - Julio Landeros DO - 12/03/2023 6:30 PM CDT ED Attestation This patient was independently evaluated by the APC. I was available for immediate consultation andin-person evaluation if required but was not asked to do so. * Azul Woodson RN - 12/03/2023 10:27 AM CDT Pt c/o LT shoulder pain since yesterday. Denies injury. Pt states pain radiates down arm and to upper back. No pain med taken. documented in this encounter Plan of Treatment Upcoming Encounters Date Type Department Care Team (Latest Contact Info) Description 07/13/2024 9:00 AM COLOR BUFFER Hospital Encounter [facility] [address] [place] [phone] Jaya Grier MD [facility]0 [facility] [address] [place] [id number] 07/13/2024 9:00 AM COLOR BUFFER - 07/13/2024 9:30 AM COLOR BUFFER Surgery [facility] [address] [place] [address] Jaya Grier MD [facility] [address] [place] [address] ESOPHAGOGASTRODUODENOSCOPY Scheduled Procedures Name Priority Associated Diagnoses Date/Ti me ESOPHAGOGASTRODUODENOSCOPY Anemia, unspecified type Gastritis without bleeding, unspecified chronicity, unspecified gastritis type 07/13/2024 9:00 AM COLOR BUFFER COLONOSCOPY Iron deficiency anemia due to chronic blood loss documented as of this encounter Visit Diagnoses Diagnosis Chronic left shoulder pain- Primary Pain in joint, shoulder region Anemia, unspecified type Gastritis without bleeding, unspecified chronicity, unspecified gastritis type documented in this encounter Administered Medications Inactive Administered Medications - up to 3 most recent administrations Medication Order MAR Action Action Date Dose Rate Site acetaminophen (TYLENOL) tablet 975 mg 975 mg (rounded from 1,000 mg), oral, Once, On Kellie 12/03/23 at 1058, For 1 dose Given 12/03/2023 11:04 AM CDT 975 mg lidocaine (LIDODERM) 5 % patch 1 patch 1 patch, transdermal, Administer over 12 Hours, Every 24 hours, First dose on Kellie 12/03/23 at 1058, Do not cover the holes on the top side of the patch., Apply to affected area: shoulder, Laterality: Left Medication Applied 12/03/2023 11:04 AM CDT 1 patch Left Shoulder predniSONE (DELTASONE) tablet 40 mg 40 mg, oral, Once, On Kellie 12/03/23 at 1131, For 1 dose Given 12/03/2023 11:34 AM CDT 40 mg documented in this encounter Active and Recently Administered Medications Times are shown in CDT. Scheduled Medication Order 12/01/2023 12/02/2023 12/03/2023 acetaminophen (TYLENOL) tablet 975 mg (COMPLETED) 975 mg (rounded from 1,000 mg), oral, Once, On Kellie 12/03/23 at 1058, For 1 dose 1104 (Given - Provid er: Audrey Stephen RN) lidocaine (LIDODERM) 5 % patch 1 patch 1 patch, transdermal, Administer over 12 Hours, Every 24 hours, First dose on Kellie 12/03/23 at 1058, Do not cover the holes on the top side of the patch., Apply to affected area: shoulder, Laterality: Left 1104 (Medication Samira lied - Provider: Audrey Stephen RN)1204 (Due: Medication Removed - Provider: Automatic Discharge Provider - Comment: Time automatically adjusted from order being discontinued) predniSONE (DELTASONE) tablet 40 mg (COMPLETED) 40 mg, oral, Once, On Kellie 12/03/23 at 1131, For 1 dose 1134 (Given - Provid er: Audrey Stephen, ALIREZA) documented in this encounter Care Teams Proteomics Scientist Relationship Specialty Start Date End Date Cherelle Corcoran MD PCP - General Family Medicine 08/30/19 Mark Queen MD Consulting Physician Infectious Diseases 01/10/20 Rudolph Welch MD [address] [facility] [address] [place] [address] Consulting Physician Infectious Diseases 12/05/22 Markie Ryan MD [address] [facility] [address] [place] [address] Consulting Physician Nephrology 12/05/22 Dulce Vega, ALIREZA [address] [place] [address] [address] [place] [address] Trial Consultant 10/07/23 05/03/24 [place] [address] [address] [facility] [address] [place] [address] Consulting Physician Nephrology 10/22/23 documented as of this encounter
--- OUTSIDE RECORDS SUMMARY | 2024-07-04 04:05 | XMS_ITS | Encounter Summary ---
Author Organization [facility] Healthcare Address [address] [place] [address] Care Team Providers Care Lining Stitcher Name Role Phone Cherelle Corcoran MD Primary Care Pro vider Mark Queen MD Unavailable [phone] Rudolph Welch MD Unavailable Markie Ryan MD Unavailable Dulce Vega RN Unavailable [phone] Jimbo Strauss MD Unavailable [phone] Reason for Visit * Reason Comments Weakness - Generalized Encounter Details Date Type Department Care Team (Late st Contact Info) Description 12/03/2023 4:43 PM CDT - 12/04/2023 12:24 AM CDT Emergency [facility] Emergency Department [address] [place] [id number] Demetri Villanueva MD [address] [place] [address] [place] [address] Urinary tract infection without hematuria, site unspecified (Primary Dx); Leukocytosis, unspecified type; Constipation, unspecified constipation type Discharge Disposition: Discharge to home or self care Social History Tobacco Use Types Packs/Day Years Used Date Smoking Tobacco: Never Smokeless Tobacco: Never Alcohol Use Standard Drinks/Week Comments Not Currently 0 (1 standard drink = 0.6 oz pur e alcohol) [facility] Utilities Answer Date Recorded In [...] often do you attend chur ch or quaker services? More than 4 times per year [...] in a halfway (including now)? No 10/30/2023 Personal Safety Answer Date Recorded Have you ever been in or are you currently in a harmful physical or emotional relationship or is someone making you feel afraid or unsafe? 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 Gender Identity Female 02/08/2020 6:39 PM CDT Sexual Orientation Not on file documented as of this encounter Last Filed Vital Signs Vital Sign Reading Time Taken Comments Blood Pressure 140/88 12/04/2023 12:17 AM CDT Pulse 61 12/04/2023 12:17 AM CDT Temperature 36.6 ??C (97.9 ??F) 12/03/2023 4:33 PM CD T Respiratory Rate 16 12/04/2023 12:17 AM CDT Oxygen Saturation 98% 12/04/2023 12:17 AM CDT Inhaled Oxygen Concentration - - Weight 56 kg (123 lb 7.3 oz) 12/03/2023 4:36 PM CDT Height 157.5 cm (5' 2.01 ) 12/03/2023 4:36 PM CD T Body Mass Index 22.57 12/03/2023 4:36 PM CDT documented in this encounter Discharge Instructions * Discharge Instructions* Demetri Villanueva MD - 12/03/2023 11:59 PM CDT Thank you for allowing us to care for you today at [facility]. Today in the emergency department you were evaluated for any possible dangerous or life-threateningmedical emergency. Overall the test performed in the emergency department today were all very reassuring. Urine did have some indications of infection your given a dose of IV antibiotic. I have written prescription forantibiotics began taking at home. I have also written for a stool softener to take in conjunction with her currently prescribed MiraLax. Please use these as directed. Please follow-up with your primary care doctor. If any time you develop any new or worsening symptoms please do not hesitate to return. documented in this encounter Medications at Time [...] as needed for rhinitis FreeStyle Madhav 3 [place] misc Use Madhav 3 reader to scan [...] daily as needed (Constipation) 595 g 10/22/2023 cephalexin (KEFLEX) 500 mg capsule Take 0.5 capsules (250 mg total) by mouth 3 (three) times a day for 7 days 21 capsule 12/03/2023 4 acetaminophen (TYLENOL) 325 mg tabletIndication s:Osteomyelitis of [...] mg total) by mouth nightly 30 tablet 11/03/2023 4 benztropine (COGENTIN) 1 mg tablet Take 1 tablet (1 mg total) by mouth nightly 30 tablet 12/02/2023 4 calcium acetate,phosphat bind, (PHOSLO) 667 [...] neuropathy, with long-term current use of insulin ([facility]) Use to continually monitor glucose, change every 14 days 6 kit 3 03/24/2023 4 metoprolol tartrate (LOPRESSOR) 25 mg immediate release tablet TAKE 1/4 TABLET(6.25 MG) BY MOUTH TWICE DAILY 45 tablet 10/29/2023 4 risperiDONE (RisperDAL) 1 mg tablet Take 1 tablet (1 mg total) by mouth 2 (two) times a day 60 tablet 12/02/2023 4 documented as of this encounter Ordered Prescriptions Prescription Sig Dispense Quantity Refills Last Filled Start Date End Date docusate sodium (COLACE) 100 mg capsule Take 1 capsule (100 mg total) by mouth every 12 (twelve) hours 60 capsule 12/03/2023 cephalexin (KEFLEX) 500 mg capsule Take 0.5 capsules (250 mg total) by mouth 3 (three) times a day for 7 days 21 capsule 12/03/2023 4 documented in this encounter Discharge Disposition Disposition Code Departure Means Destination Comment s Discharge to home or self care documented in this encounter ED Notes * Olivia Salazar RN - 12/03/2023 10:41 PM CDT Pt transferred to [facility] for CT Olivia Salazar RN 12/03/23 2241 * Demetri Villanueva MD - 12/03/2023 7:32 PM CDT HPI Chief Complaint Patient presents with Weakness - Generalized 73-year-old female presents with nausea and diaphoresis. Past medical significant for end-stage renal disease, diastolic heart failure, Parkinson's, late onset Alzheimer's. Seen her earlier today for left shoulder pain. Received corticosteroid injection to shoulder per family history. Left here and went immediately to dialysis where she had an event where she was acutely sweaty. Patient History: Patient Active Problem List Diagnosis Date Noted Tinnitus of both ears 11/04/2023 Mixed conductive and sensorineural hearing loss of both ears 11/04/2023 Dysfunction of both eustachian tubes 11/04/2023 ESRD on hemodialysis ([facility]) ([facility]) 11/02/2023 AMS (altered mental status) 10/30/2023 Leg swelling 10/07/2023 Bandemia 12/20/2022 Shortness of breath 12/13/2022 Acute on chronic diastolic congestive heart failure ([facility]) ([facility]) 12/06/2022 Bibasilar consolidations 12/06/2022 Movement disorder 12/06/2022 Abnormal urinalysis 11/07/2022 Anemia in chronic kidney disease, on chronic dialysis ([facility]) 10/10/2022 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[facility]) 08/14/2022 Pulmonary nodule 11/16/2021 Physical deconditioning 11/15/2021 Toe necrosis ([facility]) ([facility]) 10/07/2021 Volume overload 09/06/2021 Retention of urine, unspecified 08/22/2021 Unspecified osteoarthritis, unspecified site 08/22/2021 Unsteadiness on feet 08/22/2021 Weakness 08/22/2021 Late onset Alzheimer's dementia without behavioral disturbance ([facility]) 08/19/2021 Encounter for Medicare annual wellness exam 01/08/2021 Schizoaffective disorder, bipolar type ([facility]) ([facility]) 10/10/2020 Mixed hyperlipidemia 04/03/2020 Iron deficiency anemia 04/02/2020 Gastroesophageal reflux disease without esophagitis 04/02/2020 History of amputation of toe ([facility]) ([facility]) 01/19/2020 Primary hypertension 12/13/2019 Type 2 diabetes mellitus with diabetic neuropathy, with long-term current use of insulin ([facility]) 08/30/2019 Diabetic neuropathy ([facility]) Past Medical History: Diagnosis Date Anemia Arthritis CHF (congestive heart failure) ([facility]) ([facility]) Dementia ([facility]) Depression Diabetic neuropathy ([facility]) GERD (gastroesophageal reflux disease) HL (hearing loss) Hyperlipidemia Hypertension Movement disorder Osteomyelitis ([facility]) Renal disorder Schizophrenia ([facility]) Type 2 diabetes mellitus ([facility]) Past Surgical History: Procedure Laterality Date [...] Social History Social History Narrative Originally From [place] Grew up with her mom and dad. 12th grade - graduated. [employer]. [employer] - none. [employer]. I never worked. Single. Review of Systems Review of Systems Unable to perform ROS: Dementia Physical Exam ED Triage Vitals Temp Pulse Resp BP SpO2 12/03/23 1633 12/03/23 1633 12/03/23 1633 12/03/23 1650 12/03/23 1633 36.6 ??C (97.9 ??F) 64 19 (!) 193/70 100 % Temp src Heart Rate Source Patient Position BP Location FiO2 (%) 12/03/23 1633 12/03/23 1932 12/03/23 1932 12/03/231931 -- Oral Monitor Lying Right arm Height Height Method Weight Weight Method 12/03/23 1636 -- 12/03/23 1636 -- 1.575 m (5' 2.01 ) 56 kg (123 lb 7.3 oz) Physical Exam Vitals and nursing note reviewed. Constitutional: General: She is not in acute distress. Appearance: She is well-developed. HENT: Head: Normocephalic and atraumatic. Eyes: Conjunctiva/sclera: Conjunctivae normal. Cardiovascular: Rate and Rhythm: Normal rate and regular rhythm. Heart sounds: No murmur heard. Pulmonary: Effort: Pulmonary effort is normal. No respiratory distress. Breath sounds: Normal breath sounds. Abdominal: Palpations: Abdomen is soft. Tenderness: There is no abdominal tenderness. Musculoskeletal: General: No swelling. Cervical back: Neck supple. Skin: General: Skin is warm and dry. Capillary Refill: Capillary refill takes less than 2 seconds. Neurological: Mental Status: She is alert. Psychiatric: Mood and Affect: Mood normal. MDM NIH Score Medical Decision Making 73-year-old female presents after episode diaphoresis during dialysis. Afebrile, but stable oral tothe emergency department. Mom white count but no other SIRS criterion suggestive of sepsis. Renal function and electrolytes consistent with known history end-stage renal disease. Patient urinalysis with clear indications infection. CT head, chest, abdomen pelvis benign. Will initiate course antibiot ics and prescribed some medication to act as a bowel regimen. Will have patient follow-up with her primary care doctor. Clear return precautions given. Amount and/or Complexity of Data Reviewed Labs: ordered. Radiology: ordered. ECG/medicine tests: ordered. Risk OTC drugs. Prescription drug management. Final diagnoses: Urinary tract infection without hematuria, site unspecified Leukocytosis, unspecified type Constipation, unspecified constipation type Demetri Villanueva MD 12/04/23 0553 * Mita Lynch RN - 12/03/2023 4:30 PM CDT Patient brought in in via EMS from dialysis when the patient became pale, cool, and diaphoretic. Patient was earlier seen in this facility with shoulder pain. Patient AxO 1 as baseline. documented in this encounter Plan of Treatment Upcoming Encounters Date Type Department Care Team (Latest Contact Info) Description 07/13/2024 9:00 AM DRY COLOR MIXER Hospital Encounter [facility] [address] [place] [address] Jaya Grier MD [address] [place] [address] DR GAINES [address] [place] [id number] 07/13/2024 9:00 AM DRY COLOR MIXER - 07/13/2024 9:30 AM DRY COLOR MIXER Surgery [facility] [address] [place] [address] Jaya Grier MD [address] [place] [address] DR GAINES [address] [place] [phone] ESOPHAGOGASTRODUODENOSCOPY Pending Results Name Type Priority Associated Diagnoses Date /Time Troponin T high-sensitivity series (baseline, 2hr, 4hr, 6hr) Lab STAT 12/03/2023 4:46 PM CDT Pro B-type natriuretic peptide Lab STAT 12/03/2023 4:46 PM CDT Scheduled Orders Name Type Priority Associated Diagnoses Orde r Schedule Troponin T high-sensitivity series (baseline, 2hr, 4hr, 6hr) Lab STAT Once f or 1 Occurrences starting 12/03/2023 until 12/03/2023 Pro B-type natriuretic peptide Lab STAT Once for 1 Occur rences starting 12/03/2023 until 12/03/2023 Scheduled Procedures Name Priority Associated Diagnoses Date/Ti me ESOPHAGOGASTRODUODENOSCOPY Anemia, unspecified type Gastritis without bleeding, unspecified chronicity, unspecified gastritis type 07/13/2024 9:00 AM DRY COLOR MIXER COLONOSCOPY Iron deficiency anemia due to chronic blood loss documented as of this encounter Procedures Procedure Name Priority Date/Time Associated Diagnosis Comments CT ABDOMEN PELVIS WO CONTRAST ED 12/03/2023 11:05 PM CDT BLOOD CULTURE STAT 12/03/2023 8:04 PM CDT BLOOD CULTURE STAT 12/03/2023 8:02 PM CDT TROPONIN T HIGH-SENSITIVITY 2-HOUR Timed 12/03/2023 7:[address] CHEST WO CONTRAST ED 12/03/2023 7:[address] HEAD WO CONTRAST ED 12/03/2023 7 :37 PM CDT SEPSIS LACTATE WITH REFLEX STAT 12/03/2023 6:12 PM CDT XR CHEST 1 VIEW ED Urgent/IP Urgent 12/03/2023 5:25 PM CDT ECG 12-LEAD STAT 12/03/2023 5:03 PM CDT URINALYSIS AND REFLEX TO MICROSCOPIC AND CULTURE STAT 12/03/2023 4:58 PM CDT URINALYSIS, MICROSCOPIC ONLY STAT 12/03/2023 4:58 PM CDT URINE CULTURE STAT 12/03/2023 4:58 PM CDT TROPONIN T HIGH-SENSITIVITY SERIES (BASELINE, 2HR, 4HR, 6HR) STAT 12/03/2023 4:46 PM CDT EGFR STAT 12/03/2023 4:46 PM CDT DIFFERENTIAL AUTO STAT 12/03/2023 4:4 6 PM CDT PRO B-TYPE NATRIURETIC PEPTIDE STAT 12/03/2023 4:46 PM CDT CBC WITH AUTO DIFFERENTIAL STAT 12/03/2023 4:46 PM CDT COMPREHENSIVE METABOLIC PANEL STAT 12/03/2023 4:46 PM CDT documented in this encounter Results * CT Abdomen Pelvis WO Contrast (12/03/2023 11:05 PM CDT) Anatomical Region Laterality Modality Body N/A Computed Tomogra phy 12/03/2023 11:1 2 PM CDT Narrative 12/03/2023 11:17 PM CDT EXAM DESCRIPTION: ?? CT ABDOMEN PELVIS WO CONTRAST REASON FOR STUDY: ?? AMS, abd pain ?? Past medical significant for end-stage renal disease ??Seen her earlier today for left shoulder pain. ??Received corticosteroid injection to shoulder per family history. ??Left here and went immediately to dialysis where she had an event where she was acutely sweaty. ?? TECHNIQUE: CT scan of the abdomen and pelvis performed without intravenous and without ??oral contrast using helical scanning technique. Reconstructed coronal and sagittal MPR images reviewed. All images stored on PACS. Automated exposure control was used as a dose optimization technique for this examination. COMPARISON: ?? 06/19/2022 FINDINGS: The sensitivity for detection of visceral lesions is diminished without the use of intravenous contrast. LOWER CHEST: ?? No significant pulmonary abnormalities. No effusion. LIVER: ?? Normal size. ??No identified cystic or solid masses. GALLBLADDER: ?? Unremarkable BILE DUCTS: ?? No intrahepatic or extrahepatic ductal dilatation. SPLEEN: ?? Normal size. ??No focal lesions. PANCREAS: ?? No identified cystic or solid masses. ??No significant calcifications. No adjacent inflammation or peripancreatic fluid collections. Pancreatic duct not dilated. ADRENALS: ?? Normal. KIDNEYS/URINARY TRACT: ?? No identified significant cystic or solid masses. No stones. No hydronephrosis or hydroureter. ?Urinary bladder is unremarkable. GI: ?? Prominent amount of stool suggests constipation. ??No evidence of the obstruction is seen. ??The appendix is not clearly abnormal. PERITONEUM: ?? No ascites or free air. RETROPERITONEUM: ?? No mass or adenopathy. REPRODUCTIVE: ?? No significant abnormality. VASCULATURE: ?? No abdominal aortic aneurysm. MUSCULOSKELETAL: ?? No significant abnormality. OTHER: ?? No other abnormality. IMPRESSION: ?? Prominent amount of stool suggests constipation. ??No evidence of the obstruction is seen. THIS IS AN ELECTRONICALLY VERIFIED FINAL REPORT 12/03/2023 11:17 PM - Electronically signed by ??Salvador Marques M.D. KH: KH D: ??12/03/2023 11:17 PM T: ??12/03/2023 11:17 PM Report ID: [id number] Reading Location: ??[id number] Procedure Note Salvador Marques MD - 12/03/2023 EXAM DESCRIPTION: CT ABDOMEN PELVIS WO CONTRAST REASON FOR STUDY: AMS, abd pain Past medical significant for end-stage renal disease Seen her earliertoday for left shoulder pain. Received corticosteroid injection to shoulder per family history. Left here and went immediately to dialysis where she hadan event where she was acutely sweaty. TECHNIQUE: CT scan of the abdomen and pelvis performed without intravenousand without oral contrast using helical scanning technique. Reconstructed coronal and sagittal MPR images reviewed. All images stored on PACS.Automated exposure control was used as a dose optimization technique for this examination. COMPARISON: 06/19/2022 FINDINGS: The sensitivity for detection of visceral lesions is diminished without the use of intravenous contrast. LOWER CHEST: No significant pulmonary abnormalities. No [...] solid masses.No stones. No hydronephrosis or hydroureter. Urinary bladder isunremarkable. GI: Prominent amount of stool suggests constipation. No evidence of the obstruction is seen. The appendix is not clearly abnormal. PERITONEUM: No ascites or free air. RETROPERITONEUM: No mass or adenopathy. REPRODUCTIVE: No significant abnormality. VASCULATURE: No abdominal aortic aneurysm. MUSCULOSKELETAL: No significant abnormality. OTHER: No other abnormality. IMPRESSION: Prominent amount of stool suggests constipation. Noevidence of the obstruction is seen. THIS IS AN ELECTRONICALLY VERIFIED FINAL REPORT 12/03/2023 11:17 PM - Electronically signed by Salvador Marques M.D. KH: ROSA MARIA Report ID: [id number] Reading Location: [place] [address] us Demetri Villanueva MD IMG CT PROCEDURES Final Resul t * Blood culture Blood Peripheral (12/03/2023 8:04 PM CDT) Report Final Report: No growth Comment:Testing performed by : [facility], [address] [facility], [place]., [address] Blood (Peripheral) 12/03/2023 8:04 PM CDT 12/03/2023 11:24 PM CDT Narrative NILSA - 12/08/2023 7:00 AM CDT From a different site than #1. Draw Blood cultures before administration of Antibiotics Collection->Peripheral Received only aerobic blood culture bottle 1. ?Blood cultures are incubated for 4 [...] organism identification may be performed using the Sonendoigene Gram-Positive Blood Culture Assay. This assay detects microbial DNA in positive blood culture broth via hybridization of target DNA to capture oligonucleotides on a microarray. This assay has been cleared by the [place] Food and Drug Administration and its performance characteristics have been verified by the [facility]. 5. ?For questions about this culture, contact the Microbiology Laboratory at [phone]. Interpretive data was last revised on 2019. us Demetri Villanueva MD LAB MICROBIOLOGY - GENERAL OR DERABLES Final Result NILSA [address] [facility] Department [place] [address] * Blood culture Blood Peripheral (12/03/2023 8:02 PM CDT) Report Final Report: No growth Comment:Testing performed by : [facility], [address] [place]., [address] Blood (Peripheral) 12/03/2023 8:02 PM CDT 12/03/2023 11:[address]vee NILSA - 12/08/2023 7:00 AM CDT Draw Blood cultures before administration of Antibiotics Collection->Peripheral 1. ?Blood cultures are incubated for [...] organism identification may be performed using the Sonendoigene Gram-Positive Blood Culture Assay. This assay detects microbial DNA in positive blood culture broth via hybridization of target DNA to capture oligonucleotides on a microarray. This assay has been cleared by the [place] Food and Drug Administration and its performance characteristics have been verified by the [facility]. 5. ?For questions about this culture, contact the Microbiology Laboratory at [phone]. Interpretive data was last revised on 2019. Demetri Villanueva MD LAB MICROBIOLOGY - GENERAL OR DERABLES Final Result Performing Organization Address [facility] Co de Phone Number NILSA [address] [place] [address] * (ABNORMAL) Troponin T high-sensitivity 2-hour (12/03/2023 7:39 PM CDT) Trop T hs 39(H) <=14 ng/L Comment: Ref Range High Interpretive Data For further hscTnT resources including the diagnostic algorithm and an aid in interpretation, copy and paste this link: https://nrl.testcatalog.org/show/hsTrop Current Interpretive Data last revised 2020. Testing performed by: [address] [address] Trop T hs delta -3 ng/L NILSA Comment:Testing performed by : [address] [address] Trop T hs interp Insignificant NILSA Comment:Testing performed by : [address] [address] Blood 12/03/2023 7:39 PM CDT 12/03/2023 7:40 PM CDT Notinfile Unknown LAB BLOOD ORDERABLES Final Res ult Performing Organization Address [facility] Co de Phone Number NILSA [address] [place] [address] * CT Chest WO Contrast (12/03/2023 7:37 PM CDT) Anatomical Region Laterality Modality Body N/A Computed Tomogra phy 12/03/2023 7:43 PM CDT Narrative 12/03/2023 7:45 PM CDT EXAM DESCRIPTION: ?? CT CHEST WO CONTRAST REASON FOR STUDY: ?? AMS ?? brought in in via EMS from dialysis when the patient became pale, cool, and diaphoretic. Patient was earlier seen in this facility with shoulder pain. Patient AxO 1 as baseline. ? TECHNIQUE: CT scan of the chest performed without intravenous contrast using helical scanning technique. Reconstructed coronal and sagittal MPR images reviewed. ??All images stored on PACS. ??Automated exposure control was used as a dose optimization technique for this examination. COMPARISON: ?? 02/08/2022 FINDINGS: The sensitivity for detection of solid visceral lesions is diminished without the use of intravenous contrast. LUNGS: ?? No nodules or masses. No pneumonia. PLEURA: ?? No effusion. No pneumothorax. MEDIASTINUM/ERICA: ?? No identified masses or abnormal nodes. HEART: ?? Heart size is normal with no pericardial effusion. CORONARY ARTERY CALCIFICATION: ??Yes VASCULATURE: ?? No thoracic aortic aneurysm. AXILLA: ?? No adenopathy. CHEST WALL: ?? No masses. ??No subcutaneous air. HARDWARE/LINES/TUBES: ?? None. UPPER ABDOMEN: ?? No significant abnormality. MUSCULOSKELETAL: ?? No significant abnormality. OTHER: ?? No other significant abnormality. IMPRESSION: ?? No acute pulmonary process. THIS IS AN ELECTRONICALLY VERIFIED FINAL REPORT 12/03/2023 7:45 PM - Electronically signed by ??Salvador Marques M.D. KH: ROSA MARIA D: ??12/03/2023 7:45 PM T: ??12/03/2023 7:45 PM Report ID: [id number] Reading Location: ??[id number] Procedure Note Salvador Marques MD - 12/03/2023 EXAM DESCRIPTION: CT CHEST WO CONTRAST REASON FOR STUDY: AMS brought in in via EMS from dialysis when the patient became pale, cool,and diaphoretic. Patient was earlier seen in this facility with shoulder pain. Patient AxO 1 as baseline. TECHNIQUE: CT scan of the chest performed without intravenous contrastusing helical scanning technique. Reconstructed coronal and sagittal MPR images reviewed. All images stored on PACS. Automated exposure control was usedas a dose optimization technique for this examination. COMPARISON: 02/08/2022 FINDINGS: The sensitivity for detection of solid visceral lesions is diminished without the use of intravenous contrast. LUNGS: No nodules or masses. No pneumonia. PLEURA: No effusion. No pneumothorax. MEDIASTINUM/ERICA: No identified masses or abnormal nodes. HEART: Heart size is normal with no pericardial effusion. CORONARY ARTERY CALCIFICATION: Yes VASCULATURE: No thoracic aortic aneurysm. AXILLA: No adenopathy. CHEST WALL: No masses. No subcutaneous air. HARDWARE/LINES/TUBES: None. UPPER ABDOMEN: No significant abnormality. MUSCULOSKELETAL: No significant abnormality. OTHER: No other significant abnormality. IMPRESSION: No acute pulmonary process. THIS IS AN ELECTRONICALLY VERIFIED FINAL REPORT 12/03/2023 7:45 PM - Electronically signed by Salvador Marques M.D. KH: ROSA MARIA Report ID: [id number] Reading Location: [place] [address] us Demetri Villanueva MD IMG CT PROCEDURES Final Resul t * CT Head WO Contrast (12/03/2023 7:37 PM CDT) Anatomical Region Laterality Modality Head and Neck N/A Computed Tomogra phy 12/03/2023 7:40 PM CDT Narrative 12/03/2023 7:43 PM CDT EXAM DESCRIPTION: CT HEAD WO CONTRAST REASON FOR STUDY: AMS ?? brought in in via EMS from dialysis when the patient became pale, cool, and diaphoretic. Patient was earlier seen in this facility with shoulder pain. Patient AxO 1 as baseline. ? TECHNIQUE: Axial images acquired through the brain without intravenous contrast. ??Images stored on PACS. ?? Automated exposure control was used as a dose optimization technique for this examination. COMPARISON: 11/17/2023 FINDINGS: BRAIN: ?? No hemorrhage, edema or mass effect. No recent infarct. ? Mild diffuse atrophy of the brain is again noted similar to previous. ? EXTRA-AXIAL SPACES: ?? No fluid collections. No masses. CALVARIUM: ?? No fracture. SINUSES/MASTOIDS: ?? Paranasal sinuses are clear. ??Minor fluid is seen in the mastoid air cells particularly on the right similar to previous. ORBITS: ?? No significant abnormality. OTHER: ?? No other significant abnormality. IMPRESSION: No acute intracranial findings. THIS IS AN ELECTRONICALLY VERIFIED FINAL REPORT 12/03/2023 7:43 PM - Electronically signed by ??Salvador CRANE: ROSA MARIA D: ??12/03/2023 7:43 PM T: ??12/03/2023 7:43 PM Report ID: [id number] Reading Location: ??[id number] Procedure Note Salvador Marques MD - 12/03/2023 EXAM DESCRIPTION: CT HEAD WO CONTRAST REASON FOR STUDY: AMS brought in in via EMS from dialysis when the patient became pale, cool,and diaphoretic. Patient was earlier seen in this facility with shoulder pain. Patient AxO 1 as baseline. TECHNIQUE: Axial images acquired through the brain without intravenous contrast. Images stored on PACS. Automated exposure control was used asa dose optimization technique for this examination. COMPARISON: 11/17/2023 FINDINGS: BRAIN: No hemorrhage, edema or mass effect. No recent infarct. Mild diffuse atrophy of the brain is again noted similar to previous. EXTRA-AXIAL SPACES: No fluid collections. No masses. CALVARIUM: No fracture. SINUSES/MASTOIDS: Paranasal sinuses are clear. Minor fluid is seen inthe mastoid air cells particularly on the right similar to previous. ORBITS: No significant abnormality. OTHER: No other significant abnormality. IMPRESSION: No acute intracranial findings. THIS IS AN ELECTRONICALLY VERIFIED FINAL REPORT 12/03/2023 7:43 PM - Electronically signed by Salvador CRANE: ROSA MARIA Report ID: [id number] Reading Location: [id number] us Demetri Villanueva MD IMG CT PROCEDURES Final Resul t * Sepsis Lactate w/ Reflex (12/03/2023 6:12 PM CDT) Sepsis Lactate 1.1 0.7 - 2.0 mmol/L Comment:Testing performed by : [facility], [address] [place] [address], [place]., [address] Blood 12/03/2023 6:12 PM CDT 12/03/2023 6:14 PM CDT us Demetri Villanueva MD LAB BLOOD ORDERABLES Final Re sult NILSA MH [address] [facility] [place] [address] * XR Chest 1 View (12/03/2023 5:25 PM CDT) Anatomical Region Laterality Modality Body, Chest N/A Computed Radiogr aphy 12/03/2023 5:31 PM CDT Narrative 12/03/2023 5:32 PM CDT EXAM DESCRIPTION: XR CHEST 1 VIEW REASON FOR STUDY: SOB, pulmonary edema suspected ?Patient brought in in via EMS from dialysis when the patient became pale, cool, and diaphoretic. Patient was earlier seen in this facility with shoulder pain. Patient AxO 1 as baseline. ?? TECHNIQUE: Frontal ??radiographic view(s) of the chest. COMPARISON: 10/29/2023 FINDINGS: Hazy bibasilar opacities, likely overlying soft tissue. ??No gross consolidation. ??No definite pulmonary edema. ??No large pleural effusion. Prominence of the right mediastinal contours is unchanged. ??The heart is normal in size. Right dialysis catheter tip projects over the region of the superior vena cava. IMPRESSION: 1. ?? No gross acute cardiopulmonary abnormality. THIS IS AN ELECTRONICALLY VERIFIED FINAL REPORT 12/03/2023 5:32 PM - Electronically signed by ??Shane Miller M.D. AG: TON D: ??12/03/2023 5:32 PM T: ??12/03/2023 5:32 PM Report ID: [id number] Reading Location: ??[id number] Procedure Note Shane Miller MD - 12/03/2023 EXAM DESCRIPTION: XR CHEST 1 VIEW REASON FOR STUDY: SOB, pulmonary edema suspected Patient brought in in via EMS from dialysis when the patient becamepale, cool, and diaphoretic. Patient was earlier seen in this facility withshoulder pain. Patient AxO 1 as baseline. TECHNIQUE: Frontal radiographic view(s) of the chest. COMPARISON: 10/29/2023 FINDINGS: Hazy bibasilar opacities, likely overlying soft tissue. Nogross consolidation. No definite pulmonary edema. No large pleural effusion. Prominence of the right mediastinal contours is unchanged. The heart is normal in size. Right dialysis catheter tip projects over the region of the superior vena cava. IMPRESSION: 1. No gross acute cardiopulmonary abnormality. THIS IS AN ELECTRONICALLY VERIFIED FINAL REPORT 12/03/2023 5:32 PM - Electronically signed by Shane Miller M.D. AG: AG Report ID: [id number] Reading Location: [id number] Julio Landeros DO IMG XR PROCEDURES Final Result * ECG 12 lead (12/03/2023 5:03 PM CDT) Ventricular Rate EKG/Min 70 BPM [facility] Atrial Rate 70 BPM [facility] MI-Interval (MSEC) 164 ms [facility] QRS-Interval (MSEC) 72 ms [facility] QT-Interval (MSEC) 438 ms [facility] QTc 473 ms [facility] P [place] 86 degrees [facility] R [place] 33 degrees [facility] T [place] 6 degrees [facility] Diagnosis Normal sinus rhythm Normal ECG When compared with ECG of 17-NOV-2023 16:12, Nonspecific T wave abnormality, improved in Inferior leads Confirmed by WILMA Vicente, DON ([id number]) on 12/07/2023 10:41:32 AM [facility] 12/03/2023 5:03 PM CDT 12/07/2023 10:41 AM CDT Demetri Villanueva MD ECG ORDERABLES Final Result [facility] * Urine culture Urine (12/03/2023 4:58 PM CDT) Report Final Report: Less than 100,000 colonies/mL (clinically insignificant growth based on current clinical standards) Comment:Testing performed by : [facility], [address] [place] [address] Organism (CLINICALLY INSIGNIFICANT GROWTH NILSA Urine 12/03/2023 4:58 PM CDT 12/03/2023 7:28 PM CDT Narrative NILSA - 12/04/2023 8:35 PM CDT Urine culture reflexed based upon urinalysis results. Testing performed by [facility] ([phone]) us Julio Landeros DO LAB MICROBIOLOGY - GENERAL ORD ERABLES Final Result Performing Organization Address [facility] Co de Phone Number [facility] [address] [facility] Department [place] [address] * (ABNORMAL) Urinalysis, microscopic only (12/03/2023 4:58 PM CDT) WBC, ur >50(A) 0 - 5 /HPF Comment:Testing performed by : [address] [address] RBC, ur 6-10(A) 0 - 2 /HPF NILSA Comment:Testing performed by : [address] [address] Epithelial cells, squamous, ur 1-5 0 - 5 /HPF NILSA Comment:Testing performed by : [address] [address] Mucous, ur Present(A) NILSA Comment:Testing performed by : [address] [address] Culture Reflex Comment Reflex to urine culture will be performed. NILSA Comment:Testing performed by : [address] [address] Urine 12/03/2023 4:58 PM CDT 12/03/2023 5:06 PM CDT us Demetri Villanueva MD LAB URINE ORDERABLES Final Re sult Performing Organization Address City/[facility]/ZIP Co de Phone Number [facility] [address] [facility] Department [place] [address] * (ABNORMAL) Urinalysis reflex to microscopic and culture Urine (12/03/2023 4:58 PM CDT) Color, ur Yellow Yellow Comment:Testing performed by : [address] [address] Clarity, ur Cloudy(A) Clear NILSA Comment:Testing performed by : [address] [address] Specific gravity, ur 1.010 1.003 - 1.030 NILSA Comment:Testing performed by : [address] [address] pH, urine 7.0 NILSA Comment: Interpretive Data ? Urine pH is affected by diet, medications, systemic acid-base disturbances, and renal tubular function. ??pH may affect urinary stone formation. ??For example, urine pH below 6.0 may help reduce the tendency for calcium phosphate stones and pH greater than 6.0 may reduce the tendency for uric acid stone formation. Source: [facility] (formerly [employer]) Current Interpretive Data was last revised on 2017 Testing performed by: [address] [address] Protein, ur ql 3+(A) Negative NILSA Comment:Testing performed by : [address] [address] Glucose, ur ql 2+(A) Negative NILSA Comment:Testing performed by : [address] [address] Ketones, ur Negative Negative NILSA Comment:Testing performed by : [address] [address] Bilirubin, ur Negative Negative NILSA Comment:Testing performed by : [address] [address] Blood, ur 1+(A) Negative NILSA Comment:Testing performed by : [address] [address] Urobilinogen, ur <2.0 <2.0 mg/dL NILSA Comment:Testing performed by : [facility], [address] [place] [address]., [address] Nitrite, ur Negative Negative NILSA RODRIGES Comment:Testing performed by : [address] [address] Leukocyte esterase, ur 4+(A) Negative NILSA RODRIGES Comment:Testing performed by : [address] [address] UA reflex comment Reflex to microscopic UA will be performed. NILSA RODRIGES Comment:Testing performed by : [address] [address] Urine 12/03/2023 4:58 PM CDT 12/03/2023 5:06 PM CDT us Demetri Villanueva MD LAB MICROBIOLOGY - GENERAL OR DERABLES Final Result NILSA [address] [facility] Department [place] [address] * (ABNORMAL) Pro B-type natriuretic peptide (12/03/2023 4:46 PM CDT) NT-proBNP 1,122(H) <=300 pg/mL Comment: Interpretive Comments: A. Dyspnea [...] Last Revised Date: 2018. Testing performed by: [facility], [address] [place] [address]., [address] Blood 12/03/2023 4:46 PM CDT 12/03/2023 4:49 PM CDT us Notinfile Unknown LAB BLOOD ORDERABLES Final Res ult [facility] [address] [facility] Department [place] [address] * (ABNORMAL) Troponin T high-sensitivity series (baseline, 2hr, 4hr, 6hr) (12/03/2023 4:46 PM CDT) Trop T hs 42(H) <=14 ng/L Comment: Ref Range High Interpretive Data For further hscTnT resources including the diagnostic algorithm and an aid in interpretation, copy and paste this link: [email or web address].testcatalog.org/show/[email or web address] Current Interpretive Data last revised 2020. Testing performed by: [address] [address] Blood 12/03/2023 4:46 PM CDT 12/03/2023 4:49 PM CDT us Notinfile Unknown LAB BLOOD ORDERABLES Edited Re sult - Final NILSA [address] [facility] Department [place] [address] * (ABNORMAL) eGFR (12/03/2023 4:46 PM CDT) eGFR 28(L) >=60 mL/min/1. 73 m2 Comment: Interpretive Data [...] was last reviewed 2021. Testing performed by: [facility], [address] [place] [address]., [address] Blood 12/03/2023 4:46 PM CDT 12/03/2023 4:49 PM CDT us Demetri Villanueva MD LAB BLOOD ORDERABLES Final Re sult NILSA [address] [facility] Department [place] [address] * (ABNORMAL) Differential, auto (12/03/2023 4:46 PM CDT) Neutrophil abs 12.9(H) 1.5 - 6.5 K/cumm Comment:Testing performed by : [address] [address] Imm gran abs 0.1 0.0 - 0.1 K/cumm NILSA Comment:Testing performed by : [address] [address] Lymphocyte abs 0.7(L) 0.8 - 3.3 K/cumm NILSA Comment:Testing performed by : [address] [address] Monocyte abs 0.1(L) 0.2 - 0.8 K/cumm NILSA Comment:Testing performed by : [address] [address] Eosinophil abs 0.0 0.0 - 0.5 K/cumm NILSA Comment:Testing performed by : [address] [address] Basophil abs 0.0 0.0 - 0.1 K/cumm NILSA Comment:Testing performed by : [address] [address] Neutrophil pct 93.0 % NILSA Comment: Interpretive Data Percent cell count reference ranges are not reported, since discordance with absolute values may lead to misinterpretation of CBC data. Current Interpretive Data was last revised on 2017. Testing performed by: [address] [address] Imm gran pct 0.6 % NILSA Comment: Interpretive Data Percent cell count reference ranges are not reported, since discordance with absolute values may lead to misinterpretation of CBC data. Current Interpretive Data was last revised on 2017. Testing performed by: [address] [address] Lymphocyte pct 5.3 % NILSA Comment: Interpretive Data Percent cell count reference ranges are not reported, since discordance with absolute values may lead to misinterpretation of CBC data. Current Interpretive Data was last revised on 2017. Testing performed by: [address] [address] Monocyte pct 0.8 % NILSA Comment: Interpretive Data Percent cell count reference ranges are not reported, since discordance with absolute values may lead to misinterpretation of CBC data. Current Interpretive Data was last revised on 2017. Testing performed by: [address] [address] Eosinophil pct 0.1 % NILSA Comment: Interpretive Data Percent cell count reference ranges are not reported, since discordance with absolute values may lead to misinterpretation of CBC data. Current Interpretive Data was last revised on 2017. Testing performed by: [address] [address] Basophil pct 0.2 % NILSA Comment: Interpretive Data Percent cell count reference ranges are not reported, since discordance with absolute values may lead to misinterpretation of CBC data. Current Interpretive Data was last revised on 2017. Testing performed by: [address] [address] Blood 12/03/2023 4:46 PM CDT 12/03/2023 4:49 PM CDT us Demetri Villanueva MD LAB BLOOD ORDERABLES Final Re sult NILSA [address] [facility] Department [place] [address] * (ABNORMAL) Comprehensive metabolic panel (12/03/2023 4:46 PM CDT) Sodium 136 135 - 145 mmol/L Comment:Testing performed by : [address] [address] Potassium, pl 4.0 3.3 - 4.9 mmol/L NILSA Comment:Testing performed by : [address] [address] Chloride 96(L) 97 - 110 mmol/L [facility] Comment:Testing performed by : [address], [place]., [address] CO2 26 22 - 32 mmol/L NILSA Comment:Testing performed by : [address], [place]., [address] Anion gap 14 2 - 15 mmol/L NILSA Comment:Testing performed by : [address], [place]., [address] BUN 15 6 - 25 mg/dL [facility] Comment:Testing performed by : [address], [place]., [address] Creatinine 1.90(H) 0.60 - 1.10 mg/dL NILSA Comment:Testing performed by : [address], [place]., [address] Glucose 138 70 - 199 mg/dL [facility] Comment: Interpretive Data Fasting glucose >/= [...] was last revised 2022. Testing performed by: [address] [address] Calcium 9.3 8.5 - 10.3 mg/dL [facility] Comment:Testing performed by : [address] [address] Bilirubin, total 0.2 0.1 - 1.2 mg/dL NILSA Comment:Testing performed by : [address] [address] Protein, pl 8.1 6.5 - 8.5 g/dL NILSA Comment:Testing performed by : [address] [address] Albumin 4.1 3.5 - 5.0 g/dL NILSA Comment:Testing performed by : [address] [address] Alk phos 172(H) 40 - 130 Units/L NILSA RODRIGES Comment:Testing performed by : [address] [address] ALT 69(H) 7 - 45 Units/L NILSA RODRIGES Comment:Testing performed by : [address] [address] AST 25 10 - 45 Units/L NILSA Comment: HEMOLYZED: Hemolysis interferes with the above test. Testing performed by: [address] [address] Blood 12/03/2023 4:46 PM CDT 12/03/2023 4:49 PM CDT us Demetri Villanueva MD LAB BLOOD ORDERABLES Final Re sult NILSA [facility] [facility] Department [place] [address] * (ABNORMAL) CBC with auto differential (12/03/2023 4:46 PM CDT) Pathologist [facility] WBC 13.9(H) 3.8 - 9.9 K/cumm Comment:Testing performed by : [address] [address] Hgb 10.0(L) 11.9 - 15.5 g/dL NILSA RODRIGES Comment:Testing performed by : [address] [address] Hct 31.1(L) 35.6 - 45.5 % NILSA RODRIGES Comment:Testing performed by : [address] [address] Plt 281 150 - 400 K/cumm NILSA RODRIGES Comment:Testing performed by : [address] [address] MPV 10.1 9.1 - 12.3 fL NILSA RODRIGES Comment:Testing performed by : [address] [address] RBC 3.29(L) 3.90 - 5.20 M/cumm NILSA Comment:Testing performed by : [address] [address] MCV 94.5 81.3 - 96.4 fL NILSA RODRIGES Comment:Testing performed by : [address], [address] MCH 30.4 27.1 - 33.3 pg NILSA Comment:Testing performed by : [address] [address] MCHC 32.2(L) 32.3 - 35.7 g/dL NILSA Comment:Testing performed by : [address], [address] RDW CV 14.3 11.1 - 14.9 % NILSA Comment:Testing performed by : [address], [address] RDW SD 49.1(H) 35.7 - 48.1 fL NILSA Comment:Testing performed by : [address] [address] NRBC abs 0.00 0.00 - 0.01 K/cumm NILSA Comment:Testing performed by : [address] [address] Blood 12/03/2023 4:46 PM CDT 12/03/2023 4:49 PM CDT us Demetri Villanueva MD LAB BLOOD ORDERABLES Final Re sult [facility] [address] [facility] [place] [address] documented in this encounter Visit Diagnoses Diagnosis Urinary tract infection without hematuria, site unspecified- Primary Leukocytosis, unspecified type Constipation, unspecified constipation type Anemia, unspecified type Gastritis without bleeding, unspecified chronicity, unspecified gastritis type documented in this encounter Administered Medications Inactive Administered Medications - up to 3 most recent administrations Medication Order MAR Action Action Date Dose Rate Site cefTRIAXone (ROCEPHIN) 1,000 mg/10 mL in sterile water (premix) 1,000 mg 1,000 mg, intravenous, at 120 mL/hr, Administer over 5 Minutes, Once, On Kellie 12/03/23 at 1741, For 1 dose, Indications: Urinary Tract/Genitourinary InfectionIndications:U rinary Tract/Genitourinary Infection Given 12/03/2023 6:04 PM CDT 1,000 mg 120 mL/hr fentaNYL (SUBLIMAZE) preservative free injection 25 mcg 25 mcg, intravenous, Once, On Kellie 12/03/23 at 1955, For 1 dose Given 12/03/2023 8:22 PM CDT 25 mcg Left Antecubital hydrALAZINE (APRESOLINE) injection 10 mg 10 mg, intravenous, Administer over 2 Minutes, Once, On Kellie 12/03/23 at 1714, For 1 dose Given 12/03/2023 5:28 PM CDT 10 mg documented in this encounter Discontinued Medications Medication Sig Discontinue Reason Start Date End Da te fluticasone propionate (FLONASE) 50 mcg/actuation nasal sprayIndications:Hearin g loss, unspecified hearing loss type, unspecified laterality Administer 2 sprays into each nostril daily Therapy completed 08/03/2023 12/03/2023 insulin glargine 100 unit/mL (3 mL) pen for injection Inject 15 Units under the skin nightly Therapy completed 10/22/2023 12/03/2023 ramelteon (ROZEREM) 8 mg tablet Take 1 tablet (8 mg total) by mouth nightly as needed for sleep Therapy completed 10/22/2023 12/03/2023 documented as of this encounter Historical Medications * This list may reflect changes made after this encounter. insulin glargine 100 unit/mL (3 mL) pen for injection Inject 18 Units under the skin nightly fluticasone propionate (FLONASE) 50 mcg/actuation nasal spray Administer 2 sprays into each nostril daily as needed for rhinitis added in this encounter Active and Recently Administered Medications Times are shown in CDT. Scheduled Medication Order 12/02/2023 12/03/2023 12/04/2023 cefTRIAXone (ROCEPHIN) 1,000 mg/10 mL in sterile water (premix) 1,000 mg (COMPLETED) 1,000 mg, intravenous, at 120 mL/hr, Administer over 5 Minutes, Once, On Kellie 12/03/23 at 1741, For 1 dose, Indications: Urinary Tract/Genitourinary Infection 1804 (Given - Provider: Sheree Lynch, ALIREZA) fentaNYL (SUBLIMAZE) preservative free injection 25 mcg (COMPLETED) 25 mcg, intravenous, Once, On Kellie 12/03/23 at 1955, For 1 dose 2021 (Given - Provider: Olivia Salazar RN) hydrALAZINE (APRESOLINE) injection 10 mg (COMPLETED) 10 mg, intravenous, Administer over 2 Minutes, Once, On Kellie 12/03/23 at 1714, For 1 dose 172 (Given - Provider: Sheree Lynch RN) documented in this encounter Care Teams Lining Stitcher Relationship Specialty Start Date End Date Cherelle Corcoran MD PCP - General Family Medicine 08/30/19 Mark Queen MD Consulting Physician Infectious Diseases 01/10/20 Rudolph Welch MD [address] [facility] [address] [place] [address] Consulting Physician Infectious Diseases 12/05/22 Markie Ryan MD [address] [facility] [address] [place] [address] Consulting Physician Nephrology 12/05/22 Dulce Vega, ALIREZA [address] [place] [address] [address] [place] [address] President [place] 10/07/23 05/03/24 [place] [id number] [place], [place] [id number] Consulting Physician Nephrology 10/22/23 documented as of this encounter
--- OUTSIDE RECORDS SUMMARY | 2024-07-04 04:05 | XMS_ITS | Encounter Summary ---
Author Organization [facility] Healthcare Address [address] [place] [address] Care Team Providers Care Electrical Accessories Ii Assembler Name Role Phone Cherelle Corcoran MD Primary Care Pro vider Mark Queen MD Unavailable Rudolph Welch MD Unavailable [phone] Markie Ryan MD Unavailable [phone] Dulce Vega RN Unavailable [phone] Jimbo Strauss MD Unavailable [phone] Reason for Visit * Reason Onset Date Comments JOY Questions 12/25/2023 Encounter Details Date Type Department Care Team ([facility] Contact Info) Description 12/25/2023 Telephone [facility] Medical Group Primary Care at [address] [address] Cherelle Corcoran MD [address] [place] [id number] JOY Questions Social History Tobacco Use [...] materials from doctor or pharmacy Never 12/28/2023 [facility] Utilities Answer Date Recorded In the past 12 months has th e [employer], gas, oil, or water [employer] threatened to shut off services in your [...] often do you attend chur ch or mandaen services? 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 No Will patient be transferred to another inpatient facility (e.g. retirement, inpatient rehab, etc.)? No The patient was not discharged at the time of the call. Patient will need to be contacted after discharge to complete remaining questions. Date Admitted: 12/19/23 Tentative Discharge Date: 12/25/23 Facility Admitted To: [facility] Date of JOY Appointment: Unable to schedule within 10 days Additional Comments: Patient's daughter calls and states patient was seen for Syncope Does message need to be routed? Yes-Action Needed documented in this encounter Plan of Treatment Upcoming Encounters Date Type Department Care Team (Latest Contact Info) Description 07/13/2024 9:00 AM WOOL WASHER FEEDER Hospital Encounter [facility] GI Lab [address] [place] [address] Jaya Grier MD [address] [place] [address] [address] GA[address] [place] [address] 07/13/2024 9:00 AM WOOL WASHER FEEDER - 07/13/2024 9:30 AM WOOL WASHER FEEDER Surgery [facility] GI Lab [address] [place] [address] Jaya Grier MD [facility] [address] [place] [address] ESOPHAGOGASTRODUODENOSCOPY Scheduled Procedures Name Priority Associated Diagnoses Date/Ti me ESOPHAGOGASTRODUODENOSCOPY Anemia, unspecified type Gastritis without bleeding, unspecified chronicity, unspecified gastritis type 07/13/2024 9:00 AM WOOL WASHER FEEDER COLONOSCOPY Iron deficiency anemia due to chronic blood loss documented as of this encounter Visit Diagnoses Not on filedocumented in this encounter Care Teams Electrical Accessories Ii Assembler Relationship Specialty Start Date End Date Cherelle Corcoran MD PCP - General Family Medicine 08/30/19 Mark Queen MD Consulting Physician Infectious Diseases 01/10/20 Rudolph Welch MD [address] [facility] [address] [place] [address] Consulting Physician Infectious Diseases 12/05/22 Markie Ryan MD [address] [facility] [address] [place] [address] Consulting Physician Nephrology 12/05/22 Dulce Vega RN [address] [place] [address] [address] [place] [address] Candles Pourer 10/07/23 05/03/24 [place] [address] [facility] [address] [place] [address] Consulting Physician Nephrology 10/22/23 documented as of this encounter
--- OUTSIDE RECORDS SUMMARY | 2024-07-04 04:05 | XMS_ITS | Encounter Summary ---
Author Organization [facility] Address [address] [place] [address] Phone Care Team Providers Care Stitching Machine Operator Name Role Phone Cherelle Corcoran MD Primary Care Pro vider Mark Queen MD Unavailable [phone] Rudolph Welch MD Unavailable Markie Ryan MD Unavailable [phone] Dulce Vega RN Unavailable Jimbo Strauss MD Unavailable [phone] Reason for Visit * Reason Comments Diabetes Type 2 Encounter Details Date Type Department Care Team (Latest Contact Info) Description 12/07/2023 4:40 PM CDT Office Visit [facility] Endocrinology Metabolism and Lipid [address] [facility] [address], [address] [place] [address] Smith Gibbs MD [address] [place] [address] Type 2 diabetes mellitus with diabetic neuropathy, with long-term current use of insulin (HCC) (Primary Dx); Primary hypertension; Mixed hyperlipidemia; CKD (chronic kidney disease) stage 4, GFR 15-29 ml/min ([facility]/HCC) ([facility]) Social History Tobacco Use Types Packs/Day Years Used Date Smoking Tobacco: Never Smokeless Tobacco: Never Alcohol Use Standard Drinks/Week Comments Not Currently 0 (1 standard drink = 0.6 oz pur e alcohol) [facility] Utilities Answer Date Recorded In the past [...] a care home (including now)? No 10/30/2023 Personal Safety Answer Date Recorded Have you ever been in or are you currently in a harmful physical or emotional relationship or is someone making you feel afraid or unsafe? Denies 12/03/2023 Comments No Sex and Gender Information Value Date Recorded Sex Assigned at Not on file Legal Sex Female 9:03 AM GREENHOUSE FLORIST Gender Identity Female 02/08/2020 6:39 PM CDT Sexual Orientation Not on file documented as of this encounter Last Filed Vital Signs Vital Sign Reading Time Taken Comments Blood Pressure 180/60 12/07/2023 5:10 PM CDT Pulse 63 12/07/2023 4:56 PM CDT Temperature - - Respiratory Rate - - Oxygen Saturation - - Inhaled Oxygen Concentration - - Weight - - Height 157.5 cm (5' 2.01 ) 12/07/2023 4:56 PM CD T Body Mass Index - - documented in this encounter Patient Instructions * Patient Instructions* Smith Gibbs MD - 12/07/2023 4:40 PM CDT Call [phone], option #1 to schedule next appointment - in 3 months with SENIOR PACKAGING ENGINEER and in 6 months with me documented in this encounter Progress Notes * Smith Gibbs MD - 12/07/2023 4:40 PM CDT Images from the original note were not included. Endocrine Outpatient Visit Chief Complaint Patient presents with Diabetes Type 2 HPI: Last visit was on 06/30/2023 Patient is a 73 y.o. female with T2DM complicated by neuropathy, ESRD on HD (TTS), microalbuminuria, HLD, HTN, HFpEF, history of LE DVT, schizoaffective disorder who is here for T2DM follow-up. Since last visit: Patient reported chronic shoulder pain which is now worse, no acute complaints. Reports adherence to recommended regimen with no adverse events. No hospitalization since last visit. Current regimen: -Lantus 18 units qHS -Humalog 4 units + 1:50 >150 TIDAC CGM/SMBG: Madhav 3 sensor. Pattern shows excellent glycemic control with TIR above 70%. Minimal postprandial hyperglycemia. Hypoglycemia events: none Associated symptoms: none Awareness: + <70 Change in eating habits: appetite is good Change in physical activity: sedentary Neuropathy: + Retinopathy: Last dilated retinal exam is due - Nephropathy: +, on ACEi/ARBs BP 207/75, repeat 180/60 Labs since last visit: -11/2023 A1c 8.2% (09/2023) Total cholesterol 118 TG 104 HDL 47 LDL 50 - on Atorvastatin 40 mg daily UaCR +4000 Cr 1.9 GFR 28 Current Outpatient Medications Medication Sig Dispense Refill [...] mouth nightly 30 tablet 11 blood-glucose sensor (ArtspaceStyle Madhav 3 Sensor) device Use for continuous [...] times a day flash glucose scanning reader [facility] Use Madhav 3 reader to scan Madhav 3 sensor 1 each 0 flash glucose sensor (FreeStyle Madhav 2 Sensor) kit Use to continually monitor glucose, change every 14 days 6 kit 3 fluticasone propionate (FLONASE) 50 mcg/actuation nasal spray Administer 2 sprays into each nostrildaily as needed for rhinitis FreeStyle Madhav 3 [place] [facility] Use Madhav 3 reader to scan Madhav [...] to 2 mg nightly) 60 tablet 11 cephalexin (KEFLEX) 500 mg capsule Take 0.5 capsules (250 mg total) by mouth 3 (three) times a day for 7 days (Patient not taking: Reported on 12/07/2023) 21 capsule 0 No current facility-administered medications for this visit. Review of Systems Review of systems per HPI and otherwise all other systems are negative. OBJECTIVES Vitals BP (!) 180/60 Pulse 63 Ht 157.5 cm (5' 2.01 ) BMI 22.57 kg/m?? Physical exam: General Appearance: No apparent [...] neuropathy, with long-term current use of insulin (CMS/[facility]) ([facility]) Excellent glycemic control as suggested by patient's most recent GMI / TIR We discussed targets which include HbA1c < 8%, TIR > 50%, goal BG 100-180 If experiencing symptoms of hypoglycemia or BG below 70, follow the rule of 15/15-15 rule. Adjustments to current regimen: -Continue Lantus 18 units qHS -Continue Humalog 4 units +1:50 >150 TIDAC Advised to reach out if BG is below 70 to adjust Lantus or Humalog dose depending on when hypoglycemia is happening. -CGM sensors: Madhav 3 sensor with reader -Continuous glucose monitor alarms should be set to alert to hypoglycemia 2. Mixed hyperlipidemia -LDL at goal, TG at goal -Due for repeat lipid panel in 10/2024 -Continue Atorvastatin 40 mg daily -Goal LDL <70, TG <150 3. Primary hypertension -BP above goal -Monitor BP at home and follow-up with PCP -Goal BP <130/80 4. CKD (chronic kidney disease) stage 4, GFR 15-29 ml/min (CMS/HCC) ([facility]) -Currently on HD on TTS Plan: Return in about 3 months (around 03/08/2024). My total encounter time on 12/07/23 was 30 minutes which was spent in the activities documented in the note. This includes time spent prior to the visit and after the visit in direct care of the patient. Smith Gibbs MD Instructor of Medicine Endocrinology, Metabolism and Lipid Research [facility] [place] documented in this encounter Plan of Treatment Upcoming Encounters Date Type Department Care Team (Latest Contact Info) Description 07/13/2024 9:00 AM GREENHOUSE FLORIST Hospital Encounter [facility] GI Lab [address] [place] [address] Jaya Grier MD [address] [facility] [address] [place] [address] 07/13/2024 9:00 AM GREENHOUSE FLORIST - 07/13/2024 9:30 AM GREENHOUSE FLORIST Surgery [facility] [address] [place] [address] Jaya Grier MD [address] [facility] [address] [place] [address] ESOPHAGOGASTRODUODENOSCOPY Scheduled Procedures Name Priority Associated Diagnoses Date/Ti me ESOPHAGOGASTRODUODENOSCOPY Anemia, unspecified type Gastritis without bleeding, unspecified chronicity, unspecified gastritis type 07/13/2024 9:00 AM GREENHOUSE FLORIST COLONOSCOPY Iron deficiency anemia due to chronic blood loss documented as of this encounter Visit Diagnoses Diagnosis Type 2 diabetes mellitus with diabetic neuropathy, with long-term current use of insulin ([facility])- Primary Primary hypertension Unspecified essential hypertension Mixed hyperlipidemia CKD (chronic kidney disease) stage 4, GFR 15-29 ml/min ([facility]) ([facility]) Chronic kidney disease, Stage IV (severe) Anemia, unspecified type Gastritis without bleeding, unspecified chronicity, unspecified gastritis type documented in this encounter Care Teams Stitching Machine Operator Relationship Specialty Start Date End Date Cherelle Corcoran MD PCP - General Family Medicine 08/30/19 Mark Queen MD Consulting Physician Infectious Diseases 01/10/20 Rudolph Welch MD [address] [facility] [address] [place] [address] Consulting Physician Infectious Diseases 12/05/22 Markie Ryan MD [address] [facility] [address] [place] [address] Consulting Physician Nephrology 12/05/22 Dulce Vega, ALIREZA [address] [facility] [address] [place] [address] Detail Assembler 10/07/23 05/03/24 [place] [address] [address] [place] [address] Consulting Physician Nephrology 10/22/23 documented as of this encounter
--- OUTSIDE RECORDS SUMMARY | 2024-07-04 04:05 | XMS_ITS | Encounter Summary ---
Author Organization [facility] Healthcare Address [address] [place] [address] Care Team Providers Care Willow Machine Operator Name Role Phone Cherelle Corcoran MD Primary Care Pro vider Mark Queen MD Unavailable [phone] Rudolph Welch MD Unavailable Markie Ryan MD Unavailable [phone] Dulce Vega RN Unavailable Jimbo Strauss MD Unavailable [phone] Reason for Visit * Reason Comments Chronic Kidney Disease - Follow Up Visit Encounter Details Date Type Department Care Team (Late st Contact Info) Description 12/18/2023 9:45 AM CDT Office Visit [facility] Medical Group Nephrology at [address] [place] [address] Markie Ryan MD [address] [place] [address] [address] [place] [address] ESRD (end stage renal disease) on dialysis (HCC) (Primary Dx) Social History Tobacco Use Types Packs/Day Years Used Date Smoking Tobacco: Never Smokeless Tobacco: Never Tobacco Cessation:Counseling Given: Not Answered Alcohol Use Standard Drinks/Week Comments Not Currently 0 (1 standard drink = 0.6 oz pur e alcohol) [facility] Utilities Answer Date Recorded In [...] a partner? 10/30/2023 AUDIT-C Answer Date Recorded Q1: How often [...] in a [facility] (including now)? No 10/30/2023 Personal Safety Answer Date Recorded Have you ever been in or are you currently in a harmful physical or emotional relationship or is someone making you feel afraid or unsafe? Denies 12/03/2023 Comments No Sex and Gender Information Value Date Recorded Sex Assigned at Not on file Legal Sex Female 9:03 AM SAW OFFBEARER Gender Identity Female 02/08/2020 6:39 PM CDT Sexual Orientation Not on file documented as of this encounter Last Filed Vital Signs Vital Sign Reading Time Taken Comments Blood Pressure 218/72 12/18/2023 9:41 AM CDT Pulse 70 12/18/2023 9:41 AM CDT Temperature 36.6 ??C (97.9 ??F) 12/18/2023 9:41 AM CD T Respiratory Rate - - Oxygen Saturation - - Inhaled Oxygen Concentration - - Weight 60.3 kg (133 lb) 12/18/2023 9:41 AM CDT Height 157.5 cm (5' 2 ) 12/18/2023 9:41 AM CDT Body Mass Index 24.33 12/18/2023 9:41 AM CDT documented in this encounter Patient Instructions * Patient Instructions* Markie Ryan MD - 12/18/2023 9:45 AM CDT Will see at dialysis center, no need to follow up in the office Stop metoprolol Start carvedilol documented in this encounter Ordered Prescriptions Prescription Sig Dispense Quantity Refills Last Filled Start Date End Date carvediloL (COREG) 3.125 mg tablet Take 1 tablet (3.125 mg total) by mouth 2 (two) times a day with meals 180 tablet 3 12/18/2023 02/11/2024 documented in this encounter Progress Notes * Markie Ryan MD - 12/18/2023 9:45 AM CDT Subjective/Objective Patient ID: Barbara Chakraborty is a 73 y.o. female. Chief Complaint Chronic Kidney Disease - Follow Up Visit HPI This is a patient with a history of CKD who was started on hemodialysis during hospitalization elsewhere. She is here today as she had a previously scheduled office visit for CKD. I have been seeing her at the dialysis center but we were unable to contact her in time before her arrival. I have seen her in the office previously although intermittently and not for some time as she is often been hospitalized elsewhere. She has a history of diabetes since 1997 and a more recent history of hypertension. She has a history of schizophrenia with previous significant difficulty controllingher glucose. Also a likely history of dementia. She has a history of diastolic heart failure. Apparently has a new diagnosis of Parkinson's as well MRA during recent hospitalization revealed possible acute to subacute infarct in the posterior right temporal lobe and likely significant chronic microvascular ischemia. No significant carotid stenosis by Doppler. She is accompanied by her daughter Review of Systems Constitutional: Negative for appetite change and fatigue. HENT: Negative. Eyes: Negative. Respiratory: Negative for cough, chest tightness and shortness of breath. Cardiovascular: Negative for chest pain, palpitations and leg swelling. Gastrointestinal: Negative for abdominal pain and nausea. Endocrine: Negative for polydipsia and polyuria. Genitourinary: Negative for decreased urine volume, difficulty urinating, dysuria, flank pain, frequency, hematuria and urgency. Musculoskeletal: Positive for severe shoulder pain and arthralgias Skin: Negative for color change and rash. Allergic/Immunologic: Negative. Neurological: Negative for dizziness, weakness and light-headedness. Hematological: Negative. Psychiatric/Behavioral: Negative. Current Outpatient Medications Medication Sig Dispense Refill [...] total) by mouth nightly 30 tablet 11 calcium acetate,phosphat bind, (PHOSLO) 667 mg capsule TAKE 1 CAPSULE(667 MG) BY MOUTH THREE TIMES DAILY WITH MEALS 270 capsule 0 docusate sodium (COLACE) 100 mg capsule Take 1 capsule (100 mg total) by mouth every 12 (twelve) hours (Patient taking differently: Take 1 capsule (100 mg total) by mouth every 12 (twelve) hours prn)60 capsule 0 famotidine (PEPCID) 10 mg tablet Take 1 tablet (10 mg total) by mouth daily ferrous sulfate 325 mg (65 mg of elemental iron) tablet Take 1 tablet (65 mg of elemental iron total) by mouth 2 (two) times a day flash glucose scanning reader [facility] Use Madhav 3 reader to scan Madhav 3 sensor 1 each 0 flash glucose sensor (FreeStyle Madhav 2 Sensor) kit Use to continually monitor glucose, change every 14 days 6 kit 3 fluticasone propionate (FLONASE) 50 mcg/actuation nasal spray Administer 2 sprays into each nostrildaily as needed for rhinitis FreeStyle Madhav 3 [place] [facility] Use Madhav 3 reader to scan Madhav [...] take 1.5 mg nightly for14 days starting 6/12/24 then increase to 2 mg nightly) 60 tablet 11 benztropine (COGENTIN) 1 mg tablet Take 1 tablet (1 mg total) by mouth nightly (Patient taking differently: Take 1 tablet (1 mg total) by mouth 2 mg every morning and 1 mg at night) 30 tablet 11 blood-glucose sensor (FreeStyle Madhav 3 Sensor) device Use for continuous glucose monitoring. Change sensor every 14 days 6 each 3 No current facility-administered medications for this visit. No Known Allergies Vitals BP (!) 218/72 (BP Location: Left arm, Patient Position: Sitting) Pulse 70 Temp 36.6 ??C (97.9 ??F) (Temporal) Ht 157.5 cm (5' 2 ) Wt 60.3 kg (133 lb) BMI 24.33 kg/m?? Physical Exam Constitutional: In no acute distress Head: Normocephalic and atraumatic. Eyes: EOM are normal. Neck: Normal range of motion. Cardiovascular: Normal rate and regular rhythm. Pulmonary/Chest: Effort normal and breath sounds normal. Abdominal: Soft. Bowel sounds are normal. Musculoskeletal: Limited range of motion with no significant lower extremity edema Neurological: Alert and oriented to person Skin: Skin is warm and dry. Psychiatric: Normal mood and affect. Assessment/Plan Diagnoses and all orders for this visit: ESRD (end stage renal disease) on dialysis ([facility]) (N18.6, Z99.2) (Primary) ESRD on hemodialysis, underlying history of schizophrenia and likely dementia. Has been started on hemodialysis during hospitalization elsewhere. Discussed with her daughter that as long as quality of life is reasonable fine to continue dialysis but if we think this is causing significant issues with quality of life it would not be unreasonable to keep her comfortable. At present her daughter believes her quality of life is good and would like to continue. I have seen her at the dialysis centerearlier this month and will continue to do so. Does not need to follow up in the office on a regular basis. Blood pressure quite elevated here. Having significant shoulder pain and just had an injection for this. Blood pressure has been elevated at the time of presentation to the dialysis unit thendecrease his very quickly. Asked her to monitor at home on her non dialysis days. She has been on metoprolol but has been breaking the tablets and 2 4th wishes difficult to do and will convert her tocarvedilol 3.125 mg twice a day instead. They are aware to monitor pulse as well. She has a tunneled catheter in place. Given her tremors she may not be a candidate for an alternate access unfortunately documented in this encounter Plan of Treatment Upcoming Encounters Date Type Department Care Team (Latest Contact Info) Description 07/13/2024 9:00 AM SAW OFFBEARER Hospital Encounter [facility] GI Lab [address] [place] [address] Jaya Grier MD [address] [place] [address] [address] [place] [address] 07/13/2024 9:00 AM SAW OFFBEARER - 07/13/2024 9:[address] [facility] Surgery [facility] GI Lab [address] [place] [address] Jaya Grier MD [address] [place] [address] [address] [place] [address] ESOPHAGOGASTRODUODENOSCOPY Scheduled Procedures Name Priority Associated Diagnoses Date/Ti me ESOPHAGOGASTRODUODENOSCOPY Anemia, unspecified type Gastritis without bleeding, unspecified chronicity, unspecified gastritis type 07/13/2024 9:00 AM SAW OFFBEARER COLONOSCOPY Iron deficiency anemia due to chronic blood loss documented as of this encounter Visit Diagnoses Diagnosis ESRD (end stage renal disease) on dialysis (HCC)- Primary End stage renal disease Anemia, unspecified type Gastritis without bleeding, unspecified chronicity, unspecified gastritis type documented in this encounter Discontinued Medications Medication Sig Discontinue Reason Start Date End Da te metoprolol tartrate (LOPRESSOR) 25 mg immediate release tablet TAKE 1/4 TABLET(6.25 MG) BY MOUTH TWICE DAILY Therapy completed 10/29/2023 12/18/2023 documented as of this encounter Care Teams Willow Machine Operator Relationship Specialty Start Date End Date Cherelle Corcoran MD PCP - General Family Medicine 08/30/19 Mark Queen MD Consulting Physician Infectious Diseases 01/10/20 Rudolph Welch MD [address] [facility] [address] [place] [address] Consulting Physician Infectious Diseases 12/05/22 Markie Ryan MD [address] [facility] [address] [place] [address] Consulting Physician Nephrology 12/05/22 Dulce Vega, ALIREZA [address] [place] [address] [address] [place] [address] Library Media Assistant 10/07/23 05/03/24 [place] [address] [place] [address] Consulting Physician Nephrology 10/22/23 documented as of this encounter
--- OUTSIDE RECORDS SUMMARY | 2024-07-04 04:05 | XMS_ITS | Encounter Summary ---
Author Organization [facility] Healthcare Address [address] [place] [address] Care Team Providers Care Plate Gauger Name Role Phone Cherelle Corcoran MD Primary Care Pro vider Mark Queen MD Unavailable [phone] Rudolph Welch MD Unavailable [phone] Markie Ryan MD Unavailable [phone] Dulce Vega RN Unavailable Jimbo Strauss MD Unavailable [phone] Reason for Visit * Reason Comments Altered Mental Status Syncope Encounter Details Date Type Department Care Team (Late st Contact Info) Description 11/17/2023 4:14 PM CDT - 11/17/2023 9:45 PM CDT Emergency [facility] Emergency Department [address] [place] [address] Robert Betts MD [facility] [facility] [place] [address] Wally Linn Jr., MD [address] [place] [address] Near syncope (Primary Dx); End stage renal disease on dialysis (HCC) Discharge Disposition: Discharge to home or self care Social History Tobacco Use Types Packs/Day Years Used Date Smoking Tobacco: Never Smokeless Tobacco: Never Alcohol Use Standard Drinks/Week Comments Not Currently 0 (1 standard drink = 0.6 oz pur e alcohol) [facility] Utilities Answer Date [...] often do you attend chur ch or evangelical services? More than 4 times per year 10/30/2023 Do you belong to any clubs o r organizations such as gnosticist groups, unions, fraternal or athletic groups, or [...] in a longterm (including now)? No 10/30/2023 Personal Safety Answer Date Recorded Have you ever been in or are you currently in a harmful physical or emotional relationship or is someone making you feel afraid or unsafe? Denies 10/30/2023 Comments No Sex and Gender Information Value Date Recorded Sex Assigned at Not on file Legal Sex Female 9:03 AM [employer]ERS' AG[employer] Gender Identity Female 02/08/2020 6:39 PM CDT Sexual Orientation Not on file documented as of this encounter Last Filed Vital Signs Vital Sign Reading Time Taken Comments Blood Pressure 150/59 11/17/2023 9:30 PM CDT Pulse 64 11/17/2023 9:30 PM CDT Temperature 36.8 ??C (98.2 ??F) 11/17/2023 4:20 PM CD T Respiratory Rate 15 11/17/2023 9:30 PM CDT Oxygen Saturation 97% 11/17/2023 9:30 PM CDT Inhaled Oxygen Concentration - - Weight 59 kg (130 lb 1.1 oz) 11/17/2023 4:20 PM CDT Height 157.5 cm (5' 2 ) 11/17/2023 4:20 PM CDT Body Mass Index 23.79 11/17/2023 4:20 PM CDT documented in this encounter Discharge Instructions * Discharge Instructions* Wally Linn Jr., MD - 11/17/2023 9:29 PM CDT Keep your dialysis appointment in the morning Return to the emergency department if worsens Stand up slowly and be prepared to sit back down * Attachments The following attachments cannot be sent through Care Everywhere. * Hemodialysis (General Information) ([place]) * Near Syncope (General Information) ([place]) documented in this encounter Medications at Time of Discharge blood-glucose sensor (FreeStyle Madhav 3 Sensor) deviceIndications :Type 2 diabetes mellitus with diabetic neuropathy, with long-term current use of insulin ([facility]) Use for continuous glucose monitoring. Change sensor every 14 days 6 each 3 06/30/2023 flash glucose scanning reader miscIndications:T ype 2 diabetes mellitus with diabetic neuropathy, with long-term current use of insulin ([facility]) Use Madhav 3 reader to scan Madhav 3 sensor 1 each 06/30/2023 FreeStyle Madhav 3 [place] misc Use Madhav 3 reader to scan [...] skin daily as needed to lower back polyethylene glycol (MIRALAX) 17 gram/dose bulk powder Take 17 g by mouth daily as needed (Constipation) 595 g 10/22/2023 acetaminophen (TYLENOL) 325 mg tabletIndications :Osteomyelitis of great toe of right foot (CMS/HCC) [...] mouth nightly 30 tablet 11 11/03/2023 4 calcium acetate,phosphat bind, (PHOSLO) 667 mg [...] flash glucose sensor (FreeStyle Madhav 2 Sensor) kitIndications:Ty pe 2 diabetes mellitus with diabetic neuropathy, with long-term current use of insulin (HCC) Use to continually monitor glucose, change every 14 days 6 kit 3 03/24/2023 4 fluticasone propionate (FLONASE) 50 mcg/actuation nasal sprayIndications: Hearing loss, unspecified hearing loss type, unspecified laterality Administer 2 sprays into each nostril daily 1 each 08/03/2023 4 insulin glargine 100 unit/mL (3 mL) pen for injection Inject 15 Units under the skin nightly 10/22/2023 4 metoprolol tartrate (LOPRESSOR) 25 mg immediate release tablet TAKE 1/4 TABLET(6.25 MG) BY MOUTH TWICE DAILY 45 tablet 10/29/2023 4 OLANZapine (ZyPREXA) 2.5 mg tablet Take 1 tablet (2.5 mg total) by mouth 2 (two) times a day as needed (psychosis) 20 tablet 10/22/2023 4 pen needle, diabetic 32 gauge x 5/32 needleIndications :Type 2 diabetes mellitus with diabetic neuropathy, with long-term current use of insulin (HCC) 1 Units 4 (four) times a day 100 each 3 03/24/2023 4 ramelteon (ROZEREM) 8 mg tablet Take 1 tablet (8 mg total) by mouth nightly as needed for sleep 10 tablet 10/22/2023 4 risperiDONE (RisperDAL) 1 mg tablet Take 1 tablet (1 mg total) by mouth nightly 10/22/2023 4 documented as of this encounter Discharge Disposition Disposition Code Departure Means Destination Comment s Discharge to home or self care documented in this encounter ED Notes * Robert Betts MD - 11/17/2023 5:38 PM CDT HPI Chief Complaint Patient presents with Altered Mental Status Syncope HPI Barbara Chakraborty is a 73 y.o. female w/ PMHx including type II DM, HTN, HLD, alzheimer's dementia, parkinsonism, ESRD, and CHF presenting to the ED w/ c/o AMS. Pt was at dialysis when she became altered during her treatment and returned to baseline after 5 minutes following halting treatment and fluid administration. Per EMS, pt is A&O x1 at baseline and had a BG of 145. Pt reportedly had 1.5L of fluid taken off at dialysis. Pt reportedly had her eyes open during this episode but would not respond. Per EMS, did not hit her head or fall during this episode. Pt is currently at her baseline in the ED. Pt denies any other symptoms. Pt has no other acute complaints. Patient History: Past Medical History: Diagnosis Date Anemia [...] drink Frequency of Binge Drinking: Never No current facility-administered medications for this encounter. Current Outpatient Medications: acetaminophen (TYLENOL) 325 mg tablet aspirin 81 mg enteric coated tablet atorvastatin (LIPITOR) 40 mg tablet benztropine (COGENTIN) 1 mg tablet blood-glucose sensor (FreeStyle Madhav 3 Sensor) device calcium acetate,phosphat bind, (PHOSLO) 667 mg capsule famotidine (PEPCID) 10 mg tablet ferrous sulfate 325 mg (65 mg of elemental iron) tablet flash glucose scanning reader mis flash glucose sensor (FreeStyle Madhav 2 Sensor) kit fluticasone propionate (FLONASE) 50 mcg/actuation nasal spray FreeStyle Madhav 3 [place] misc insulin glargine 100 unit/mL (3 mL) pen for injection insulin lispro (HumaLOG, ADMELOG) 100 unit/mL vial for injection lidocaine (ASPERCREME) 4 % adhesive patch,medicated metoprolol tartrate (LOPRESSOR) 25 mg immediate release tablet OLANZapine (ZyPREXA) 2.5 mg tablet pen needle, diabetic 32 gauge x /32 needle polyethylene glycol (MIRALAX) 17 gram/dose bulk powder ramelteon (ROZEREM) 8 mg tablet risperiDONE (RisperDAL) 1 mg tablet Review of Systems Review of Systems Constitutional: Negative for chills and fever. Respiratory: Negative for shortness of breath. Cardiovascular: Negative for chest pain. Neurological: Negative for seizures. All systems reviewed and are neg or non contributory for this patients presentation today other than as stated in the HPI . Physical Exam ED Triage Vitals Temp Pulse Resp BP SpO2 11/17/23 1620 11/17/23 1620 11/17/23 1620 11/17/23 1620 11/17/23 1620 36.8 ??C (98.2 ??F) 56 18 136/57 100 % Temp src Heart Rate Source Patient Position BP Location FiO2 (%) 11/17/23 1620 11/17/23 1650 11/17/23 1650 11/17/23 1650 -- Oral Monitor Lying Right arm Height Height Method Weight Weight Method 11/17/23 1620 11/17/23 1620 11/17/23 1620 11/17/23 1620 1.575 m (5' 2 ) Stated 59 kg (130 lb 1.1 oz) EMS stretcher scale Physical Exam Vitals and nursing note reviewed. Constitutional: General: She is not in acute distress. Appearance: Normal appearance. She is not ill-appearing. HENT: Head: Normocephalic and atraumatic. Right Ear: External ear normal. Left Ear: External ear normal. Nose: Nose normal. Eyes: Extraocular Movements: Extraocular movements intact. Conjunctiva/sclera: Conjunctivae normal. Pupils: Pupils are equal, round, and reactive to light. Cardiovascular: Rate and Rhythm: Normal rate and regular rhythm. Pulmonary: Effort: Pulmonary effort is normal. No respiratory distress. Abdominal: General: Abdomen is flat. There is no distension. Tenderness: There is no abdominal tenderness. There is no guarding or rebound. Musculoskeletal: General: Normal range of motion. Cervical back: Normal range of motion and neck supple. Skin: General: Skin is warm and dry. Neurological: General: No focal deficit present. Mental Status: Mental status is at baseline. Comments: NIH: 0 Psychiatric: Behavior: Behavior normal. Procedures MDM Labs Reviewed URINALYSIS AND REFLEX TO MICROSCOPIC AND CULTURE - Abnormal Result Value Color, ur Straw Clarity, ur Clear Specific gravity, ur 1.006 pH, urine 6.5 Protein, ur ql 3+ (*) Glucose, ur ql 2+ (*) Ketones, ur Negative Bilirubin, ur Negative Blood, ur Trace (*) Urobilinogen, ur <2.0 Nitrite, ur Negative Leukocyte esterase, ur 3+ (*) UA reflex comment Reflex to microscopic UA will be performed. CBC WITH AUTO DIFFERENTIAL - Abnormal WBC 9.5 Hgb 9.3 (*) Hct 28.8 (*) Plt 280 MPV 10.4 RBC 2.99 (*) MCV 96.3 MCH 31.1 MCHC 32.3 RDW CV 14.6 RDW SD 51.1 (*) NRBC abs 0.00 COMPREHENSIVE METABOLIC PANEL - Abnormal Sodium 139 Potassium, pl 4.0 Chloride 101 CO2 25 Anion gap 13 BUN 31 (*) Creatinine 2.80 (*) Glucose 152 Calcium 8.7 Bilirubin, total 0.2 Protein, pl 7.3 Albumin 3.6 Alk phos 197 (*) ALT 94 (*) AST 58 (*) TROPONIN T HIGH-SENSITIVITY SERIES (BASELINE, 2HR, 4HR, 6HR) - Abnormal Trop T hs 39 (*) TROPONIN T HIGH-SENSITIVITY 2-HOUR - Abnormal Trop T hs 38 (*) Trop T hs delta -1 Trop T hs interp Insignificant EGFR - Abnormal eGFR 17 (*) URINALYSIS, MICROSCOPIC ONLY - Abnormal WBC, ur 21-50 (*) RBC, ur 0-2 Epithelial cells, squamous, ur 6-10 (*) Bacteria, ur Trace (*) Mucous, ur Present (*) Culture Reflex Comment Reflex to urine culture will be performed. URINE CULTURE Report Value: Final Report: Less than 100,000 colonies/mL (clinically insignificant growth based on current clinical standards) Organism (CLINICALLY INSIGNIFICANT GROWTH Narrative: Urine culture reflexed based upon urinalysis results. Testing performed by [facility] ([phone]) DIFFERENTIAL AUTO Neutrophil abs 5.4 Imm gran abs 0.0 Lymphocyte abs 3.3 Monocyte abs 0.6 Eosinophil abs 0.2 Basophil abs 0.0 Neutrophil pct 56.7 Imm gran pct 0.2 Lymphocyte pct 34.2 Monocyte pct 6.7 Eosinophil pct 1.9 Basophil pct 0.3 POCT GLUCOSE DEVICE Glucose, POC 137 Glucose comment 1 Use This Result Glucose comment 2 RN/MD Notified POCT GLUCOSE DEVICE Glucose, POC 106 CT Head WO Contrast Final Result BP 150/59 Pulse 64 Temp 36.8 ??C (98.2 ??F) (Oral) Resp 15 Ht 157.5 cm (5' 2 ) Wt 59 kg (130 lb 1.1 oz) SpO2 97% BMI 23.79 kg/m?? MDM Amount and/or Complexity of Data Reviewed Clinical lab tests: reviewed Decide to obtain previous medical records or to obtain history from someone other than the patient:yes This examination was transcribed using the Locai voice recognition system without human dehydrator operator. In an effort to expedite patient care, this report has not been adjusted for typographical, grammatical, and syntax by a trained medical educator. Gilberto Aguirre scribed for Robert Betts MD in the doctor's presence. I electronically signed this note at 5:34 PM on 11/19/2023. I, Robert Betts MD, have personally performed the services described in the documentation , reviewed the documentation, as recorded by the scribe in my presence, and it accurately and completely records my words and actions. Clinical Impression: Near syncope End stage renal disease on dialysis (HCC) Gilberto Aguirre 11/17/23 1744 Robert Betts MD 11/19/23 1734 * Nelly Sommer RN - 11/17/2023 4:17 PM CDT Pt came into ED from [facility] dialysis today with c/o unresponsive period [place] [facility] [place] [facility]. Per EMS, pt was snf through treatment and pt passed out and would not respond but had her eyes open x 5 minutes. Pt reports feeling dizzy and blacking out. Per EMS, pt did not hit head or fall. Pt reports bilateral leg pain. Pt had 1/2 L removed during treatment prior to EMS arrival. Pt A/Ox2, hx of dementia. documented in this encounter Miscellaneous Notes * ED Re-evaluation Note - Wally Linn Jr., MD - 11/17/2023 7:15 PM CDT ED Re-evaluation 615 p.m. received report from on this73 y.o. female w/ PMHx including type II DM, HTN, HLD, alzheimer's dementia, parkinsonism, ESRD, and CHF presenting to the ED w/ c/o AMS. Pt was at dialysis when she became altered during her treatment and returned to baseline after 5 minutes following halting treatment and fluid administration. Per EMS, pt is A&O x1 at baseline and had a BG of145. Pt reportedly had 1.5L of fluid taken off at dialysis. History was consistent with likely brief hypotensive episode and was sent here to make sure nothing else going on. Initial workup is unremarkable, awaiting CT of the brain results 8:[address] FINDINGS: BRAIN: No hemorrhage, edema or mass effect. No recent infarct. Periventricular microvascular white matter ischemic change. EXTRA-AXIAL SPACES: No fluid collections. No masses. CALVARIUM: No fracture. SINUSES/MASTOIDS: There is fluid in the mastoid air cells bilaterally. ORBITS: No significant abnormality. OTHER: No other significant abnormality. IMPRESSION: No acute intracranial findings. THIS IS AN ELECTRONICALLY VERIFIED FINAL REPORT 11/17/2023 6:00 PM - Electronically signed by Salvador Bronson M.D. 8:45 p.m. patient is eating dinner, smiling, feels good, color is good, workup is unremarkable, discussed fluid shifts during dialysis, to explained episode, she is stable to proceed with her dialysis as scheduled. She is stable for discharge, there is no evidence of any cardiac event, no significant electrolyte abnormality, appears to have completed any fluid s shifts post dialysis, will Wally Valencia Jr., MD 11/17/232132 documented in this encounter Plan of Treatment Upcoming Encounters Date Type Department Care Team (Latest Contact Info) Description 07/13/2024 9:00 AM BU[employer]ERS' AGENT Hospital Encounter [facility] [address] [place] [address] Jaya Grier MD [facility] [address] [place] [id number] 07/13/2024 9:00 AM BUYERS' AGENT - 07/13/2024 9:30 AM [employer]ERS[employer]ENT Surgery [facility] [address] [place] [address] Jaya Grier MD [facility] [address] [place] [address] ESOPHAGOGASTRODUODENOSCOPY Scheduled Procedures Name Priority Associated Diagnoses Date/Ti in ESOPHAGOGASTRODUODENOSCOPY Anemia, unspecified type Gastritis without bleeding, unspecified chronicity, unspecified gastritis type 07/13/2024 9:00 AM BUYERS' AGENT COLONOSCOPY Iron deficiency anemia due to chronic blood loss documented as of this encounter Procedures Procedure Name Priority Date/Time Associated Diagnosis Comments POCT GLUCOSE DEVICE Routine 11/17/2023 8 :10 PM CDT URINALYSIS AND REFLEX TO MICROSCOPIC AND CULTURE STAT 11/17/2023 8:03 PM CDT URINALYSIS, MICROSCOPIC ONLY STAT 11/17/2023 8:03 PM CDT URINE CULTURE STAT 11/17/2023 8:03 PM CDT TROPONIN T HIGH-SENSITIVITY 2-HOUR Timed 11/17/2023 6:[address] HEAD WO CONTRAST ED 11/17/2023 5 :57 PM CDT TROPONIN T HIGH-SENSITIVITY SERIES (BASELINE, 2HR, 4HR, 6HR) STAT 11/17/2023 4:27 PM CDT EGFR STAT 11/17/2023 4:25 PM CDT DIFFERENTIAL AUTO STAT 11/17/2023 4:2 5 PM CDT CBC WITH AUTO DIFFERENTIAL STAT 11/17/2023 4:25 PM CDT COMPREHENSIVE METABOLIC PANEL STAT 11/17/2023 4:25 PM CDT ECG 12-LEAD STAT 11/17/2023 4:12 PM CDT POCT GLUCOSE DEVICE Routine 11/17/2023 3 :50 PM CDT documented in this encounter Results * POCT glucose (11/17/2023 8:10 PM CDT) [facility] Glucose, POC 106 70 - 199 mg/dL Comment:Testing performed by : [facility], [address] [place] [address]., [address] Blood 11/17/2023 8:10 PM CDT 11/17/2023 8:10 PM CDT us Wally Linn Jr., MD LAB POCT ORDERABLES - D FELIZICE Final Result NILSA [address] [facility] Department [place] [address] * Urine culture Urine (11/17/2023 8:03 PM CDT) [facility] Report Final Report: Less than 100,000 colonies/mL (clinically insignificant growth based on current clinical standards) Comment:Testing performed by : [facility], [address] [facility], [place]., [address] Organism (CLINICALLY INSIGNIFICANT GROWTH NILSA Urine 11/17/2023 8:03 PM CDT 11/17/2023 11:53 PM CDT Narrative NILSA - 11/19/2023 7:30 AM CDT Urine culture reflexed based upon urinalysis results. Testing performed by [facility] ([phone]) us Robert Betts MD LAB MICROBIOLOGY - GENERAL ORDER ARIADNA Final Result NILSA [address] [facility] Department [place] [address] * (ABNORMAL) Urinalysis, microscopic only (11/17/2023 8:03 PM CDT) WBC, ur 21-50(A) 0 - 5 /HPF Comment:Testing performed by : [facility], [address] [place] [address]., [address] RBC, ur 0-2 0 - 2 /HPF NILSA Comment:Testing performed by : [address] [address] Epithelial cells, squamous, ur 6-10(A) 0 - 5 /HPF NILSA Comment:Testing performed by : [address] [address] Bacteria, ur Trace(A) NILSA Comment:Testing performed by : [address] [address] Mucous, ur Present(A) NILSA Comment:Testing performed by : [address] [address] Culture Reflex Comment Reflex to urine culture will be performed. NILSA Comment:Testing performed by : [address] [address] Urine 11/17/2023 8:03 PM CDT 11/17/2023 8:11 PM CDT us Robert Kuzelj MD LAB URINE ORDERABLES Final Resul t NILSA [address] [facility] Department of Laboratories [place], [place] [id number] * (ABNORMAL) Urinalysis reflex to microscopic and culture Urine (11/17/2023 8:03 PM CDT) Color, ur Straw Yellow Comment:Testing performed by : [address] [address] Clarity, ur Clear Clear NILSA Comment:Testing performed by : [address] [address] Specific gravity, ur 1.006 1.003 - 1.030 NILSA Comment:Testing performed by : [address] [address] pH, urine 6.5 NILSA Comment: Interpretive Data ? Urine pH is affected by diet, medications, systemic acid-base disturbances, and renal tubular function. ??pH may affect urinary stone formation. ??For example, urine pH below 6.0 may help reduce the tendency for calcium phosphate stones and pH greater than 6.0 may reduce the tendency for uric acid stone formation. Source: [facility] Visual Revenue Current Interpretive Data was last revised on 2017 Testing performed by: [address] [address] Protein, ur ql 3+(A) Negative NILSA Comment:Testing performed by : [address] [address] Glucose, ur ql 2+(A) Negative NILSA Comment:Testing performed by : [address] [address] Ketones, ur Negative Negative NILSA Comment:Testing performed by : [address] [address] Bilirubin, ur Negative Negative NILSA Comment:Testing performed by : [address] [address] Blood, ur Trace(A) Negative NILSA Comment:Testing performed by : [address] [address] Urobilinogen, ur <2.0 <2.0 mg/dL NILSA RODRIGES Comment:Testing performed by : [address] [address] Nitrite, ur Negative Negative NILSA RODRIGES Comment:Testing performed by : [address] [address] Leukocyte esterase, ur 3+(A) Negative NILSA RODRIGES Comment:Testing performed by : [address] [address] UA reflex comment Reflex to microscopic UA will be performed. NILSA RODRIGES Comment:Testing performed by : [address] [address] Urine 11/17/2023 8:03 PM CDT 11/17/2023 8:11 PM CDT us Robert Betts MD LAB MICROBIOLOGY - GENERAL ORDER ARIADNA Final Result NILSA RODRIGES [address] [place] [address] Department [place] [address] * (ABNORMAL) Troponin T high-sensitivity 2-hour (11/17/2023 6:58 PM CDT) Trop T hs 38(H) <=14 ng/L Comment: Ref Range High Interpretive Data For further hscTnT resources including the diagnostic algorithm and an aid in interpretation, copy and paste this link: https://nrl.testcatalog.org/show/hsTrop Current Interpretive Data last revised 2020. Testing performed by: [address] [address] Trop T hs delta -1 ng/L NILSA RODRIGES Comment:Testing performed by : [address] [address] Trop T hs interp Insignificant NILSA RODRIGES Comment:Testing performed by : [address] [address] Blood 11/17/2023 6:58 PM CDT 11/17/2023 7:00 PM CDT us Robert Betts MD LAB BLOOD ORDERABLES Final Resul t NILSA [address] [facility] Department [place] [address] * CT Head WO Contrast (11/17/2023 5:57 PM CDT) Anatomical Region Laterality Modality Head and Neck N/A Computed Tomogra phy 11/17/2023 5:58 PM CDT Narrative 11/17/2023 6:00 PM CDT EXAM DESCRIPTION: CT HEAD WO CONTRAST REASON FOR STUDY: Mental status change, unknown cause ?? ED from [facility] dialysis today with c/o unresponsive period according to RNs at dialysis center. Per EMS, pt was snf through treatment and pt passed out and would not respond but had her eyes open x 5 minutes. Pt reports feeling dizzy and blacking ?? out. Per EMS, pt did not hit head or fall. Pt reports bilateral leg pain. Pt had 1/2 L removed during treatment prior to EMS arrival. Pt A/Ox2, hx of dementia ? TECHNIQUE: Axial images acquired through the brain without intravenous contrast. ??Images stored on PACS. ?? Automated exposure control was used as a dose optimization technique for this examination. COMPARISON: 10/29/2023 FINDINGS: BRAIN: ?? No hemorrhage, edema or mass effect. No recent infarct. ? Periventricular microvascular white matter ischemic change. ? EXTRA-AXIAL SPACES: ?? No fluid collections. No masses. CALVARIUM: ?? No fracture. SINUSES/MASTOIDS: ?? There is fluid in the mastoid air cells bilaterally. ORBITS: ?? No significant abnormality. OTHER: ?? No other significant abnormality. IMPRESSION: No acute intracranial findings. THIS IS AN ELECTRONICALLY VERIFIED FINAL REPORT 11/17/2023 6:00 PM - Electronically signed by ??Salvador Bronson M.D. KT: ALVARADO D: ??11/17/2023 6:00 PM T: ??11/17/2023 6:00 PM Report ID: [id number] Reading Location: ??[id number] Procedure Note Salvador Bronson MD - 11/17/2023 EXAM DESCRIPTION: CT HEAD WO CONTRAST REASON FOR STUDY: Mental status change, unknown cause ED from [facility] dialysis today with c/o unresponsive period according to [facility] dialysis center. Per EMS, pt was snf through treatment and pt passedout and would not respond but had her eyes open x 5 minutes. Pt reportsfeeling dizzy and blacking out. Per EMS, pt did not hit head or fall. Ptreports bilateral leg pain. Pt had 1/2 L removed during treatment prior to EMS arrival. Pt A/Ox2, hx of dementia TECHNIQUE: Axial images acquired through the brain without intravenous contrast. Images stored on PACS. Automated exposure control was used asa dose optimization technique for this examination. COMPARISON: 10/29/2023 FINDINGS: BRAIN: No hemorrhage, edema or mass effect. No recent infarct. Periventricular microvascular white matter ischemic change. EXTRA-AXIAL SPACES: No fluid collections. No masses. CALVARIUM: No fracture. SINUSES/MASTOIDS: There is fluid in the mastoid air cells bilaterally. ORBITS: No significant abnormality. OTHER: No other significant abnormality. IMPRESSION: No acute intracranial findings. THIS IS AN ELECTRONICALLY VERIFIED FINAL REPORT 11/17/2023 6:00 PM - Electronically signed by Salvador Bronson M.D. KT: KT Report ID: [id number] Reading Location: [place] [address] us Robert Betts MD IM CT PROCEDURES Final Result * (ABNORMAL) Troponin T high-sensitivity series (baseline, 2hr, 4hr, 6hr) (11/17/2023 4:27 PM CDT) Trop T hs 39(H) <=14 ng/L Comment: Ref Range High Interpretive Data For further hscTnT resources including the diagnostic algorithm and an aid in interpretation, copy and paste this link: [email or web address].testcatalog.org/show/[email or web address] Current Interpretive Data last revised 2020. Testing performed by: [facility], [address] [place] [address]., [id number] Blood 11/17/2023 4:27 PM CDT 11/17/2023 4:30 PM CDT us Robert Betts MD LAB BLOOD ORDERABLES Final Resul t NILSA [address] [facility] Department [place] [address] * (ABNORMAL) eGFR (11/17/2023 4:25 PM CDT) eGFR 17(L) >=60 mL/min/1. 73 m2 Comment: Interpretive Data [...] 2021. Testing performed by: [facility], [address] [place] [address]., [id number] Blood 11/17/2023 4:25 PM CDT 11/17/2023 4:30 PM CDT us Robert Betts MD LAB BLOOD ORDERABLES Final Resul t NILSA [address] [facility] Department [place] [address] * Differential, auto (11/17/2023 4:25 PM CDT) Neutrophil abs 5.4 1.5 - 6.5 K/cumm Comment:Testing performed by : [address] [address] Imm gran abs 0.0 0.0 - 0.1 K/cumm NILSA Comment:Testing performed by : [address] [address] Lymphocyte abs 3.3 0.8 - 3.3 K/cumm NILSA Comment:Testing performed by : [address] [address] Monocyte abs 0.6 0.2 - 0.8 K/cumm NILSA Comment:Testing performed by : [address] [address] Eosinophil abs 0.2 0.0 - 0.5 K/cumm [facility] Comment:Testing performed by : [address] [address] Basophil abs 0.0 0.0 - 0.1 K/cumm [facility] Comment:Testing performed by : [address] [address] Neutrophil pct 56.7 % [facility] Comment: Interpretive Data Percent cell count reference ranges are not reported, since discordance with absolute values may lead to misinterpretation of CBC data. Current Interpretive Data was last revised on 2017. Testing performed by: [address] [address] Imm gran pct 0.2 % NILSA Comment: Interpretive Data Percent cell count reference ranges are not reported, since discordance with absolute values may lead to misinterpretation of CBC data. Current Interpretive Data was last revised on 2017. Testing performed by: [address] [address] Lymphocyte pct 34.2 % NILSA Comment: Interpretive Data Percent cell count reference ranges are not reported, since discordance with absolute values may lead to misinterpretation of CBC data. Current Interpretive Data was last revised on 2017. Testing performed by: [address] [address] Monocyte pct 6.7 % NILSA Comment: Interpretive Data Percent cell count reference ranges are not reported, since discordance with absolute values may lead to misinterpretation of CBC data. Current Interpretive Data was last revised on 2017. Testing performed by: [address] [address] Eosinophil pct 1.9 % NILSA Comment: Interpretive Data Percent cell count reference ranges are not reported, since discordance with absolute values may lead to misinterpretation of CBC data. Current Interpretive Data was last revised on 2017. Testing performed by: [address] [address] Basophil pct 0.3 % NILSA Comment: Interpretive Data Percent cell count reference ranges are not reported, since discordance with absolute values may lead to misinterpretation of CBC data. Current Interpretive Data was last revised on 2017. Testing performed by: [address] [address] Blood 11/17/2023 4:25 PM CDT 11/17/2023 4:30 PM CDT us Robert Betts MD LAB BLOOD ORDERABLES Final Resul t [facility] [address] [facility] Department of Laboratories [place], [place] [id number] * (ABNORMAL) Comprehensive metabolic panel (11/17/2023 4:25 PM CDT) Sodium 139 135 - 145 mmol/L Comment:Testing performed by : [address] [address] Potassium, pl 4.0 3.3 - 4.9 mmol/L NILSA Comment:Testing performed by : [address] [address] Chloride 101 97 - 110 mmol/L NILSA Comment:Testing performed by : [address] [address] CO2 25 22 - 32 mmol/L NILSA Comment:Testing performed by : [address] [address] Anion gap 13 2 - 15 mmol/L NILSA Comment:Testing performed by : [address] [address] BUN 31(H) 6 - 25 mg/dL NILSA Comment:Testing performed by : [address], [place]., [address] Creatinine 2.80(H) 0.60 - 1.10 mg/dL NILSA Comment:Testing performed by : [address] [address] Glucose 152 70 - 199 mg/dL NILSA Comment: Interpretive [...] was last revised 2022. Testing performed by: [address] [address] Calcium 8.7 8.5 - 10.3 mg/dL NILSA Comment:Testing performed by : [address] [address] Bilirubin, total 0.2 0.1 - 1.2 mg/dL NILSA Comment:Testing performed by : [address] [address] Protein, pl 7.3 6.5 - 8.5 g/dL NILSA Comment:Testing performed by : [address] [address] Albumin 3.6 3.5 - 5.0 g/dL NILSA RODRIGES Comment:Testing performed by : [address] [address] Alk phos 197(H) 40 - 130 Units/L NILSA RODRIGES Comment:Testing performed by : [address] [address] ALT 94(H) 7 - 45 Units/L NILSA RODRIGES Comment:Testing performed by : [address] [address] AST 58(H) 10 - 45 Units/L NILSA RODRIGES Comment:Testing performed by : [address] [address] Blood 11/17/2023 4:2 5 PM CDT 11/17/2023 4:30 PM CDT us Robert Betts MD LAB BLOOD ORDERABLES Final Resul t NILSA [facility] Department [place] [address] * (ABNORMAL) CBC with auto differential (11/17/2023 4:25 PM CDT) WBC 9.5 3.8 - 9.9 K/cumm Comment:Testing performed by : [address] [address] Hgb 9.3(L) 11.9 - 15.5 g/dL NILSA RODRIGES Comment:Testing performed by : [address] [address] Hct 28.8(L) 35.6 - 45.5 % NILSA RODRIGES Comment:Testing performed by : [address] [address] Plt 280 150 - 400 K/cumm NILSA RODRIGES Comment:Testing performed by : [address] [address] MPV 10.4 9.1 - 12.3 fL NILSA RODRIGES Comment:Testing performed by : [address] [address] RBC 2.99(L) 3.90 - 5.20 M/cumm NILSA RODRIGES Comment:Testing performed by : [facility], [address] [place] [address]., [address] MCV 96.3 81.3 - 96.4 fL NILSA RODRIGES Comment:Testing performed by : [address] [address] MCH 31.1 27.1 - 33.3 pg NILSA RODRIGES Comment:Testing performed by : [address] [address] MCHC 32.3 32.3 - 35.7 g/dL NILSA Comment:Testing performed by : [address] [address] RDW CV 14.6 11.1 - 14.9 % NILSA Comment:Testing performed by : [address] [address] RDW SD 51.1(H) 35.7 - 48.1 fL NILSA Comment:Testing performed by : [address] [address] NRBC abs 0.00 0.00 - 0.01 K/cumm NILSA Comment:Testing performed by : [address] [address] Blood 11/17/2023 4:25 PM CDT 11/17/2023 4:30 PM CDT us Robert Betts MD LAB BLOOD ORDERABLES Final Resul t Performing Organization Address City/State/[facility] Co de Phone Number NILSA [address] [facility] Department of Laboratories [place], [place] [id number] * ECG 12 lead (11/17/2023 4:12 PM CDT) Ventricular Rate EKG/Min 55 BPM [facility] Atrial Rate 55 BPM [facility] [place]-Interval (MSEC) 160 ms [facility] QRS-Interval (MSEC) 62 ms [facility] QT-Interval (MSEC) 460 ms [facility] QTc 440 ms [facility] P [place] 80 degrees [facility] R [place] 7 degrees [facility] T [place] 231 degrees [facility] Diagnosis Sinus bradycardia Nonspecific T wave abnormality Abnormal ECG When compared with ECG of 30-OCT-2023 09:14, Nonspecific T wave abnormality now evident in Inferior leads Confirmed by COLIN PINTO M.D. ([id number]) on 11/17/2023 9:59:40 PM [facility] 11/17/2023 4:12 PM CDT 11/17/2023 9:59 PM CDT us oRbert Betts MD ECG ORDERABLES Final Result Performing Organization Address [facility] Co de Phone Number [facility] * POCT glucose (11/17/2023 3:50 PM CDT) [facility] Glucose, POC 137 70 - 199 mg/dL Comment:Testing performed by : [facility], [address] [place] [address]., [address] Glucose comment 1 Use This Result NILSA Comment:Testing performed by : [address] [address] Glucose comment 2 RN/MD Notified NILSA Comment:Testing performed by : [facility], [address] [place] [address]., [address] Blood 11/17/2023 3:50 PM CDT 11/17/2023 3:50 PM CDT us Notinfile Unknown LAB POCT ORDERABLES - DEVICE F inal Result Performing Organization Address [facility] Co de Phone Number [facility] [address] [facility] Department [place] [address] documented in this encounter Visit Diagnoses Diagnosis Near syncope- Primary End stage renal disease on dialysis (HCC) End stage renal disease Anemia, unspecified type Gastritis without bleeding, unspecified chronicity, unspecified gastritis type documented in this encounter Care Teams Plate Gauger Relationship Specialty Start Date End Date Cherelle Corcoran MD PCP - General Family Medicine 08/30/19 Mark Queen MD Consulting Physician Infectious Diseases 01/10/20 Rudolph Welch MD [address] [facility] [address] [place] [address] Consulting Physician Infectious Diseases 12/05/22 Markie Ryan MD [address] [facility] [facility] [facility] [address] [place] [address] Consulting Physician Nephrology 12/05/22 Dulce Vega, ALIREZA [address] [place] [address] [address] [place] [address] Consulting Psychiatrist 10/07/23 05/03/24 [place] [address] [place] [address] Consulting Physician Nephrology 10/22/23 documented as of this encounter
--- OUTSIDE RECORDS SUMMARY | 2024-07-04 04:05 | XMS_ITS | Encounter Summary ---
Author Organization [facility] Address [address] [place] [address] Phone Care Team Providers Care Charge Account Clerk Name Role Phone Cherelle Corcoran MD Primary Care Pro vider Mark Queen MD Unavailable [phone] Rudolph Welch MD Unavailable Markie Ryan MD Unavailable [phone] Dulce Vega RN Unavailable Jimbo Strauss MD Unavailable [phone] Reason for Visit * Reason Comments Follow-up F/U fluid in ears Encounter Details Date Type Department Care Team (Latest Contact Info) Description 11/04/2023 4:00 PM CDT Office Visit [facility] Otolaryngology [address] [place] [address] Brigid Nolasco, [place] [address] Dysfunction of both eustachian tubes (Primary Dx); Mixed conductive and sensorineural hearing loss of both ears; Tinnitus of both ears Social History Tobacco Use Types Packs/Day Years Used Date Smoking Tobacco: Never Smokeless Tobacco: Never Alcohol Use Standard Drinks/Week Comments Not Currently 0 (1 standard drink = 0.6 oz pur e alcohol) [facility] Utilities Answer Date Recorded In the [...] you have a drink containing alcohol? Never 07/24/2023 Q2: How many drinks containi ng alcohol do you have on a typical day when you are drinking? Patient does not drink Q3: How often do you have si x or more drinks on one occasion? Never 07/24/2023 Overall Financial Resource Strain (CARDIA) Answe r Date Recorded How hard is it for you to pa y for the very basics like food, housing, medical care, and heating? Not very hard 10/30/2023 PHQ-2 Answer Date Recorded PHQ-2 Total Score (If total score is 3 or more points, staff should administer the PHQ-9) 0 06/09/2022 Hunger Vital Sign Answer Date Recorded Within [...] in a snf (including now)? No 10/30/2023 Personal Safety Answer Date Recorded Have you ever been in or are you currently in a harmful physical or emotional relationship or is someone making you feel afraid or unsafe? 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 Gender Identity Female 02/08/2020 6:39 PM CDT Sexual Orientation Not on file documented as of this encounter Last Filed Vital Signs Vital Sign Reading Time Taken Comments Blood Pressure - - Pulse - - Temperature - - Respiratory Rate 18 11/04/2023 3:38 PM CDT Oxygen Saturation - - Inhaled Oxygen Concentration - - Weight 63.5 kg (140 lb) 11/04/2023 3:38 PM CDT Height 157.5 cm (5' 2 ) 11/04/2023 3:38 PM CDT Body Mass Index 25.61 11/04/2023 3:38 PM CDT documented in this encounter Progress Notes * Brigid Nolasco, CLUB ATTENDANT - 11/04/2023 4:00 PM CDT Barbara Chakraborty was seen in the office today. Primary care provider is Cherelle Corcoran MD . Chief Complaint: Barbara Chakraborty is a 73 y.o. female with complaints of: Chief Complaint Patient presents with Follow-up F/U fluid in ears . HPI- she comes to clinic today as an established patient to follow-up on hearing loss and ear pain.She is here today with her daughter. Her daughter reports that she is currently in [facility]dc doing rehab after having a small stroke and spinning some time in the hospital. She reports shehas started dialysis now due to her kidney function. She denies any recent sinus issues. Today she denies any otalgia or otorrhea. She does feel she is hearing much better. She does continue to have tinnitus. She reports using the medication as prescribed and continues to take the Flonase and Claritin daily. She denies any recent fever, chest pain, shortness of breath, nausea, hematuria, hemoptysis, and does report easy bruising. HPI 09/03/23: She comes to clinic today for evaluation of increased hearing loss and ear pain. She has a history of schizophrenia and dementia and is an unreliable source of information. She is here with her daughter who she lives with and who is her caregiver. Her daughter reports that she saw her PCP on 08/03/23. She reported that time that she had ear pain to both ears for 1-4 weeks. She had been previously treated for AOM with cefdinir. She was started on Flonase by her PCP. Her daughter reports that she has not been using that. Today she reports the ear pain has improved but she continuesto have trouble hearing along with tinnitus to both ears. Her daughter reports she has balance issues most of the time. Her daughter reports that she has been off of her schizophrenic medication for about a year now. She reports that they do have a appointment with psych but it has not for a few months. She plans to take her to an urgent care for psych next week. She reports increased incidence of sundowning ears along with her mother having conversations with people who are not there. She denies any known history of chronic problems with her ears. She does have history of diabetes, hypertension, and kidney disease. She denies any recent fever, nasal congestion, dysphagia, chest pain, shortness of breath, nausea, rash, headache, heat or cold intolerance, hematuria, or easily bruising. Subjective: See HPI Past Medical/Surgical History Past Medical History: Diagnosis Date Anemia Arthritis CHF (congestive heart failure) ([facility]HCC) (HCC) Dementia ([facility]) Depression Diabetic neuropathy ([facility]) GERD (gastroesophageal reflux disease) HL (hearing loss) Hyperlipidemia Hypertension Movement disorder Osteomyelitis (HCC) Renal disorder Schizophrenia (HCC) Type 2 diabetes mellitus (HCC) Past Surgical History: Procedure Laterality Date SECTION Right right foot EYE SURGERY cataracts TOE AMPUTATION Right 01/06/2020 4th toe amp/ foot debridement/ Dr. Anat Pelayo TUNNELED LINE PLACEMENT > 5 YEARS N/A 10/15/2023 Past Family/Social History Family History Problem Relation Age of Onset Diabetes Mother Heart disease Mother Kidney disease Mother Stomach cancer Father Alcohol abuse Father Diabetes Sister Diabetes Sister Diabetes Brother Social History Tobacco Use Smoking status: Never Smokeless tobacco: Never Substance and Sexual Activity Drug use: Never Sexual activity: Not Currently Partners: Male Alcohol Use: Not At Risk (07/24/2023) AUDIT-C Frequency of Alcohol Consumption: Never Average Number of Drinks: Patient does not drink Frequency of Binge Drinking: Never Medications/Allergies/Immunizations Current Outpatient Medications Medication Sig Dispense Refill [...] TIMES DAILY WITH MEALS 270 capsule 0 famotidine (PEPCID) 10 mg tablet Take 1 tablet (10 mg total) by mouth daily ferrous sulfate 325 mg (65 mg of elemental iron) tablet Take 1 tablet (65 mg of elemental iron total) by mouth 2 (two) times a day flash glucose scanning reader [facility] Use Madhav 3 reader to scan Madhav 3 sensor 1 each 0 flash glucose sensor (FreeStyle Madhav 2 Sensor) kit Use to continually monitor glucose, change every 14 days 6 kit 3 fluticasone propionate (FLONASE) 50 mcg/actuation nasal spray Administer 2 sprays into each nostrildaily 1 each 0 insulin glargine 100 unit/mL (3 mL) [...] BY MOUTH TWICE DAILY 45 tablet 0 OLANZapine (ZyPREXA) 2.5 mg tablet Take 1 tablet (2.5 mg total) by mouth 2 (two) times a day as needed (psychosis) 20 tablet 0 pen needle, diabetic 32 gauge x 5/32 needle 1 Units 4 (four) times a day 100 each 3 polyethylene glycol (MIRALAX) 17 gram/dose bulk powder Take 17 g by mouth daily as needed (Constipation) 595 g 0 ramelteon (ROZEREM) 8 mg tablet Take 1 tablet (8 mg total) by mouth nightly as needed for sleep 10 tablet 0 risperiDONE (RisperDAL) 1 mg tablet Take 1 tablet (1 mg total) by mouth nightly No current facility-administered medications for this visit. Allergies: Patient has no known allergies., Immunizations: Immunization History Administered Date(s) Administered Influenza Nasal, Unspecified 04/17/2017 Influenza, Quadrivalent, High Dose, Preservative Free, Intrr 04/02/2020, 03/07/2021, 04/01/2022, 08/07/2022 Influenza, Trivalent, Adjuvanted, Intramuscular 04/06/2019 Influenza, Trivalent, Intramuscular 04/17/2017 Stevia First SARS-CoV-2 Monovalent Vaccination (12+ Yrs) PURPLE 09/22/2020, 10/13/2020, 06/11/2021 Pneumococcal Conjugate PCV 13 03/31/2017 Pneumococcal Polysaccharide PPV23 01/20/2019 Review of Systems See HPI Vital Signs: Vitals Resp 18 Ht 157.5 cm (5' 2 ) Wt 63.5 kg (140 lb) BMI 25.61 kg/m?? PHYSICAL EXAMINATION: Physical Exam Constitutional: General: She is not in acute distress. HENT: Head: Normocephalic and atraumatic. Jaw: No tenderness or pain on movement. Salivary Glands: Right salivary gland is not diffusely enlarged or tender. Left salivary gland is not diffusely enlarged or tender. Right Ear: Ear canal and external ear normal. Left Ear: Ear canal and external ear normal. Ears: Comments: Bilateral tympanic membranes are thickened and non translucent Nose: No signs of injury, mucosal edema, congestion or rhinorrhea. Right Sinus: No maxillary sinus tenderness or frontal sinus tenderness. Left Sinus: No maxillary sinus tenderness or frontal sinus tenderness. Mouth/Throat: Lips: [place]. No lesions. Mouth: Mucous membranes are moist. No oral lesions. Dentition: Has dentures. Tongue: No lesions. Tongue does not deviate from midline. Pharynx: Uvula midline. No pharyngeal swelling or posterior oropharyngeal erythema. Eyes: Conjunctiva/sclera: Conjunctivae normal. Pulmonary: Effort: Pulmonary effort is normal. No respiratory distress. Musculoskeletal: General: No deformity or signs of injury. Cervical back: Neck supple. No muscular tenderness. Lymphadenopathy: Cervical: No cervical adenopathy. Skin: General: Skin is warm and dry. Neurological: Mental Status: She is alert and oriented to person, place, and time. Mental status is at baseline. Motor: No weakness. Gait: Gait abnormal. Psychiatric: Mood and Affect: Mood normal. Behavior: Behavior is cooperative. Cognition and Memory: Cognition is impaired. Memory is impaired. ASSESSMENT & PLAN Problem List Items Addressed This Visit ENT Tinnitus of both ears Mixed conductive and sensorineural hearing loss of both ears Dysfunction of both eustachian tubes - Primary ORDERS THIS ENCOUNTER No orders of the defined types were placed in this encounter. No orders of the defined types were placed in this encounter. Barbara is a 72-year-old female who presents to the office today with her daughter who is her caregiver. She did have a tympanogram today which does show improved function to the left ear. The right earcontinues to have some flat tympanogram. I am recommending they continue the Flonase and Claritin daily. She has not having problems in his understanding speech much better than she did last time shewas here. They were instructed to contact the office with any questions, concerns, or problems. They verbalize understanding of instructions and agree with this treatment plan. Brigid Nolasco NP This note was created in part with the assistance of [employer] voice recognition software. Small Piece Cutter variances may occur. documented in this encounter Plan of Treatment Upcoming Encounters Date Type Department Care Team (Latest Contact Info) Description 07/13/2024 9:00 AM VIDEO PLAYER MECHANIC Hospital Encounter [facility] [address] [place] [address] Jaya Grier MD [address] [facility] [address] [address] [place] [address] 07/13/2024 9:00 AM VIDEO PLAYER MECHANIC - 07/13/2024 9:30 AM VIDEO PLAYER MECHANIC Surgery [facility] [address] [place] [address] Jaya Grier MD [address] [facility] [address] [place] [address] ESOPHAGOGASTRODUODENOSCOPY Scheduled Procedures Name Priority Associated Diagnoses Date/Ti me ESOPHAGOGASTRODUODENOSCOPY Anemia, unspecified type Gastritis without bleeding, unspecified chronicity, unspecified gastritis type 07/13/2024 9:00 AM VIDEO PLAYER MECHANIC COLONOSCOPY Iron deficiency anemia due to chronic blood loss documented as of this encounter Visit Diagnoses Diagnosis Dysfunction of both eustachian tubes- Primary Mixed conductive and sensorineural hearing loss of both ears Tinnitus of both ears Unspecified tinnitus Anemia, unspecified type Gastritis without bleeding, unspecified chronicity, unspecified gastritis type documented in this encounter Care Teams Charge Account Clerk Relationship Specialty Start Date End Date Cherelle Corcoran MD PCP - General Family Medicine 08/30/19 Mark Queen MD Consulting Physician Infectious Diseases 01/10/20 Rudolph Welch MD [facility] [facility] [address] [place] [address] Consulting Physician Infectious Diseases 12/05/22 Markie Ryan MD [address] [facility] [address] [place] [address] Consulting Physician Nephrology 12/05/22 Dulce Vega, ALIREZA [address] [place] [address] [address] [place] [address] Box Sealing Inspector 10/07/23 05/03/24 [place] [address] [address] [facility] [address] [place] [address] Consulting Physician Nephrology 10/22/23 documented as of this encounter
--- OUTSIDE RECORDS SUMMARY | 2024-07-04 04:05 | XMS_ITS | Encounter Summary ---
Author Organization [facility] Healthcare Address [address] [place] [address] Care Team Providers Care Relay Tester Name Role Phone Cherelle Corcoran MD Primary Care Pro vider Mark Queen MD Unavailable [phone] Rudolph Welch MD Unavailable Markie Ryan MD Unavailable [phone] Dulce Vega RN Unavailable [phone] Jimbo Strauss MD Unavailable [phone] Encounter Details Date Type Department Care Team (Late st Contact Info) Description 12/25/2023 Telephone [facility] Medical Group Primary Care at [address] [address] Cherelle Corcoran MD [address] [place] [address] Social History Tobacco Use Types Packs/Day Years Used Date Smoking Tobacco: Never Smokeless Tobacco: Never Alcohol Use Standard Drinks/Week Comments Not Currently 0 (1 standard drink = 0.6 oz pur e alcohol) [facility] Utilities Answer Date Recorded In the past 12 months has th e electric, gas, oil, or water [employer] threatened to shut off services in your [...] living in a mcfp (including now)? No 12/21/2023 Personal Safety Answer Date Recorded Have you ever been in or are you currently in a harmful physical or emotional relationship or is someone making you feel afraid or unsafe? 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 thanks documented in this encounter Plan of Treatment Upcoming Encounters Date Type Department Care Team (Latest Contact Info) Description 07/13/2024 9:00 AM GARDENING INSTRUCTOR Hospital Encounter [facility] GI Lab [address] [place] [address] Jaya Grier MD [address] [address] 07/13/2024 9:00 AM GARDENING INSTRUCTOR - 07/13/2024 9:30 AM GARDENING INSTRUCTOR Surgery [facility] GI Lab [address] [place] [address] Jaya Grier MD [address] [facility] [address] [place] [address] ESOPHAGOGASTRODUODENOSCOPY Scheduled Procedures Name Priority Associated Diagnoses Date/Ti me ESOPHAGOGASTRODUODENOSCOPY Anemia, unspecified type Gastritis without bleeding, unspecified chronicity, unspecified gastritis type 07/13/2024 9:00 AM GARDENING INSTRUCTOR COLONOSCOPY Iron deficiency anemia due to chronic blood loss documented as of this encounter Visit Diagnoses Not on filedocumented in this encounter Care Teams Relay Tester Relationship Specialty Start Date End Date Cherelle Corcoran MD PCP - General Family Medicine 08/30/19 Mark Queen MD Consulting Physician Infectious Diseases 01/10/20 Rudolph Welch MD [address] [facility] [address] [place] [address] Consulting Physician Infectious Diseases 12/05/22 Markie Ryan MD [address] [facility] [address] [place] [address] Consulting Physician Nephrology 12/05/22 Dulce Vega, ALIREZA [address] [place] [address] [address] [place] [address] Director Of Supply Chain 10/07/23 05/03/24 [place] [address] [address] [facility] [address] [place] [address] Consulting Physician Nephrology 10/22/23 documented as of this encounter
--- OUTSIDE RECORDS SUMMARY | 2024-07-04 04:05 | XMS_ITS | Encounter Summary ---
Author Organization [facility] Healthcare Address [address] [place] [address] Care Team Providers Care Table Assembler Name Role Phone Cherelle Corcoran MD Primary Care Pro vider Mark Queen MD Unavailable [phone] Rudolph Welch MD Unavailable [phone] Markie Ryan MD Unavailable [phone] Dulce Vega RN Unavailable [phone] Jimbo Strauss MD Unavailable [phone] Reason for Visit * Reason Onset Date Comments Wants PT at [facility] 12/14/2023 Encounter Details Date Type Department Care Team (Late st Contact Info) Description 12/14/[address] [facility] Medical Group Orthopedics and Sports Medicine [address] [place] [address] [address] [place] [address] Perico Raphael PA [address] [place] [address] Wants PT at [facility] Social History Tobacco Use Types Packs/Day Years Used Date Smoking Tobacco: Never Smokeless Tobacco: Never Alcohol Use Standard Drinks/Week Comments Not Currently 0 (1 standard drink = 0.6 oz pur e alcohol) [facility] Utilities Answer [...] often do you attend chur ch or christianity services? More than 4 times per year [...] file Legal Sex Female 9:03 AM SUPERVISOR WATERPROOFING Gender Identity Female 02/08/2020 6:39 PM CDT Sexual Orientation Not on file documented as of this encounter Miscellaneous Notes * Telephone Encounter - David Rivera MA - 12/15/2023 8:21 AM CDT LVM THAT ORDER WAS FAXED AND THAT PUT NOTE ASKING THEY CALL PATIENT TO SCHEDULE. * Telephone Encounter - Barb Freeman - 12/14/2023 12:21 PM CDT GSC: Daughter wants to know if her mother can get a closer facility for PT. She would like [facility] in [place] or [place] if possible. Please return call to Areli documented in this encounter Plan of Treatment Upcoming Encounters Date Type Department Care Team (Latest Contact Info) Description 07/13/2024 9:00 AM SUPERVISOR WATERPROOFING Hospital Encounter [facility] GI Lab [address] [place] [address] Jaya Grier MD [address] [facility] [address] [place] [address] 07/13/2024 9:00 AM SUPERVISOR WATERPROOFING - 07/13/2024 9:30 AM SUPERVISOR WATERPROOFING Surgery [facility] GI Lab [address] [place] [address] Jaya Grier MD [address] [facility] [address] [place] [address] ESOPHAGOGASTRODUODENOSCOPY Scheduled Procedures Name Priority Associated Diagnoses Date/Ti me ESOPHAGOGASTRODUODENOSCOPY Anemia, unspecified type Gastritis without bleeding, unspecified chronicity, unspecified gastritis type 07/13/2024 9:00 AM SUPERVISOR WATERPROOFING COLONOSCOPY Iron deficiency anemia due to chronic blood loss documented as of this encounter Visit Diagnoses Not on filedocumented in this encounter Additional Health Concerns Infection Onset Date Last Indicated Resolved Time 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 12/19/2023 12/19/2023 3:58 PM CDT documented as of this encounter Care Teams Table Assembler Relationship Specialty Start Date End Date Cherelle Corcoran MD PCP - General Family Medicine 08/30/19 Mark Queen MD Consulting Physician Infectious Diseases 01/10/20 Rudolph Welch MD [address] [facility] [address] [place] [address] Consulting Physician Infectious Diseases 12/05/22 Markie Ryan MD [address] [facility] [address] [place] [address] Consulting Physician Nephrology 12/05/22 Dulce Vega, ALIREZA [address] [place] [address] [address] [place] [address] Buyers' Agent 10/07/23 05/03/24 [place] [address] [facility] [address] [place] [address] Consulting Physician Nephrology 10/22/23 documented as of this encounter
--- OUTSIDE RECORDS SUMMARY | 2024-07-04 04:05 | XMS_ITS | Encounter Summary ---
Author Organization [facility] Healthcare Address [address] [place] [address] Care Team Providers Care Rag Boiler Name Role Phone Cherelle Corcoran MD Primary Care Pro vider Mark Queen MD Unavailable [phone] Rudolph Welch MD Unavailable Markie Ryan MD Unavailable Dulce Vega RN Unavailable Jimbo Strauss MD Unavailable [phone] Encounter Details Date Type Department Care Team (Late st Contact Info) Description 12/14/2023 Telephone [facility] Medical Group Behavioral Health [address] [facility] [address] [place] [address] [place] [address] [address] Social History Tobacco Use Types Packs/Day Years Used Date Smoking Tobacco: Never Smokeless Tobacco: Never Alcohol Use Standard Drinks/Week Comments Not Currently 0 (1 standard drink = 0.6 oz pur e alcohol) [facility] Utilities Answer Date Recorded In the past 12 months has [employer] electric, gas, oil, or water company threatened [...] any clubs o r organizations such as religion groups, unions, fraternal or athletic groups, or [...] a senior living (including now)? No 10/30/2023 Personal Safety Answer Date Recorded Have you ever been in or are you currently in a harmful physical or emotional relationship or is someone making you feel afraid or unsafe? Denies 12/03/2023 Comments No Sex and Gender Information Value Date Recorded Sex Assigned at Not on file Legal Sex Female 9:03 AM APPLICATION SPEC Gender Identity Female 02/08/2020 6:39 PM CDT Sexual Orientation Not on file documented as of this encounter Miscellaneous Notes * Telephone Encounter - Elvia Garrett - 12/14/2023 9:38 AM CDT Called pts daughter , no answer, left message. Per Dr. Swenson - x-rays of the shoulder and collarbone did not show any evidence of fracture. Not broken . Please see orthopedic surgeon or primary care physician for further management. documented in this encounter Plan of Treatment Upcoming Encounters Date Type Department Care Team (Latest Contact Info) Description 07/13/2024 9:00 AM APPLICATION SPEC Hospital Encounter [facility] GI Lab [address] [place] [address] Jaya Grier MD [address] [place] [address] [address] [place] [address] 07/13/2024 9:00 AM APPLICATION SPEC - 07/13/2024 9:30 AM APPLICATION SPEC Surgery [facility] GI Lab [address] [place] [address] Jaya Grier MD [address] [facility] [address] [place] [address] ESOPHAGOGASTRODUODENOSCOPY Scheduled Procedures Name Priority Associated Diagnoses Date/Ti me ESOPHAGOGASTRODUODENOSCOPY Anemia, unspecified type Gastritis without bleeding, unspecified chronicity, unspecified gastritis type 07/13/2024 9:00 AM APPLICATION SPEC COLONOSCOPY Iron deficiency anemia due to chronic blood loss documented as of this encounter Visit Diagnoses Not on filedocumented in this encounter Care Teams Rag Boiler Relationship Specialty Start Date End Date Cherelle Corcoran MD PCP - General Family Medicine 08/30/19 Mark Queen MD Consulting Physician Infectious Diseases 01/10/20 Rudolph Welch MD [address] [facility] [address] [place] [address] Consulting Physician Infectious Diseases 12/05/22 Markie Ryan MD [address] [facility] [address] [place] [address] Consulting Physician Nephrology 12/05/22 Dulce Vega, ALIREZA [address] [place] [address] [address] [place] [address] Creative Director 10/07/23 05/03/24 [place] [address] [address] [place] [address] Consulting Physician Nephrology 10/22/23 documented as of this encounter
--- OUTSIDE RECORDS SUMMARY | 2024-07-04 04:05 | XMS_ITS | Encounter Summary ---
Author Organization [facility] Healthcare Address [address] [place] [address] Care Team Providers Care Food Photographer Name Role Phone Cherelle Corcoran MD Primary Care Pro vider Mark Queen MD Unavailable [phone] Rudolph Welch MD Unavailable Markie Ryan MD Unavailable Dulce Vega RN Unavailable Jimbo Strauss MD Unavailable [phone] Encounter Details Date Type Department Care Team (Latest Contact Info) Description 12/02/2023 4:17 PM CDT - 12/02/2023 11:59 PM CDT Hospital Encounter [facility] Diagnostic Imaging [address] [place] [address] [place] [address] [address] Pain in left arm Discharge Disposition: Discharge to home or self care Social History Tobacco Use Types Packs/Day Years Used Date Smoking Tobacco: Never Smokeless Tobacco: Never Alcohol Use Standard Drinks/Week Comments Not Currently 0 (1 standard drink = 0.6 oz pur e alcohol) [facility] Utilities Answer Date Recorded In the [...] on file Legal Sex Female 9:03 AM AGRONOMY ADVISOR Gender Identity Female 02/08/2020 6:39 PM [...] sensor 1 each 06/30/2023 FreeStyle Madhav 3 [place] misc Use Madhav 3 reader to scan [...] mg total) by mouth daily 30 tablet 11/03/2023 4 atorvastatin (LIPITOR) 40 mg tablet [...] with long-term current use of insulin ([facility]) Use to continually monitor glucose, change [...] MOUTH TWICE DAILY 45 tablet 10/29/2023 4 ramelteon (ROZEREM) 8 mg tablet Take 1 tablet (8 mg total) by mouth nightly as needed for sleep 10 tablet 10/22/2023 4 risperiDONE (RisperDAL) 1 mg tablet Take 1 tablet (1 mg total) by mouth 2 (two) times a day 60 tablet 11 12/02/2023 4 documented as of this encounter Discharge Disposition Disposition Code Departure Means Destination Discharge to home or self care documented in this encounter Plan of Treatment Upcoming Encounters Date Type Department Care Team (Latest Contact Info) Description 07/13/2024 9:00 AM AGRONOMY ADVISOR Hospital Encounter [facility] GI Lab [address] [place] [address] Jaya Grier MD [address] [place] [address] [address] [place] [address] 07/13/2024 9:00 AM AGRONOMY ADVISOR - 07/13/2024 9:30 AM AGRONOMY ADVISOR Surgery [facility] GI Lab [address] [place] [address] Jaya Grier MD [facility] [facility] [address] [place] [address] ESOPHAGOGASTRODUODENOSCOPY Scheduled Procedures Name Priority Associated Diagnoses Date/Ti dc ESOPHAGOGASTRODUODENOSCOPY Anemia, unspecified type Gastritis without bleeding, unspecified chronicity, unspecified gastritis type 07/13/2024 9:00 AM AGRONOMY ADVISOR COLONOSCOPY Iron deficiency anemia due to chronic blood loss documented as of this encounter Procedures Procedure Name Priority Date/Time Associated Diagnosis Comments XR CLAVICLE LEFT COMPLETE Schedule Routine, Read Routine (OP Routine) 12/02/2023 4:42 PM CDT Pain in left arm documented in this encounter Results * XR Clavicle Left Complete (12/02/2023 4:42 PM CDT) Anatomical Region Laterality Modality Clavicle, Chest Left Computed Radiogr aphy 12/02/2023 6:2 4 PM CDT Impressions 12/02/2023 6:24 PM CDT [...] documented in this encounter Visit Diagnoses Diagnosis Pain in left arm Anemia, unspecified type Gastritis without bleeding, unspecified chronicity, unspecified gastritis type documented in this encounter Care Teams Food Photographer Relationship Specialty Start Date End Date Cherelle Corcoran MD PCP - General Family Medicine 08/30/19 Mark Queen MD Consulting Physician Infectious Diseases 01/10/20 Rudolph Welch MD [address] [facility] [address] [place] [address] Consulting Physician Infectious Diseases 12/05/22 Markie Ryan MD [address] [facility] [address] [place] [address] Consulting Physician Nephrology 12/05/22 Dulce Vega, ALIREZA [address] [place] [address] [address] [place] [address] Inserter 10/07/23 05/03/24 [place] [address] [address] [place] [address] Consulting Physician Nephrology 10/22/23 documented as of this encounter
--- OUTSIDE RECORDS SUMMARY | 2024-07-04 04:05 | XMS_ITS | Encounter Summary ---
Author Organization [facility] Healthcare Address [address] [place] [address] Care Team Providers Care Salvage Grinder Name Role Phone Cherelle Corcoran MD Primary Care Pro vider Mark Queen MD Unavailable [phone] Rudolph Welch MD Unavailable Markie Ryan MD Unavailable Dulce Vega RN Unavailable [phone] Jimbo Strauss MD Unavailable [phone] Encounter Details Date Type Department Care Team (Late st Contact Info) Description 12/10/2023 Telephone [facility] Medical Group Primary Care at [address] [address] Cherelle Corcoran MD [address] [place] [address] Social History Tobacco Use Types Packs/Day Years Used Date Smoking Tobacco: Never Smokeless Tobacco: Never Alcohol Use Standard Drinks/Week Comments Not Currently 0 (1 standard drink = 0.6 oz pur e alcohol) [facility] Utilities Answer Date Recorded In the past 12 months has th e electric, gas, oil, or water [employer] threatened to shut off services in your [...] in a mcc (including now)? No 10/30/2023 Personal Safety Answer Date Recorded Have you ever been in or are you currently in a harmful physical or emotional relationship or is someone making you feel afraid or unsafe? Denies 12/03/2023 Comments No Sex and Gender Information Value Date Recorded Sex Assigned at Not on file Legal Sex Female 9:03 AM MOTOR OPERATOR Gender Identity Female 02/08/2020 6:39 PM CDT Sexual Orientation Not on file documented as of this encounter Miscellaneous Notes * Telephone Encounter - Indira Gomes - 12/10/2023 1:19 PM CDT Daughter called back to speak with Chelsey. MÉNDEZ will return daughters call. documented in this encounter Plan of Treatment Upcoming Encounters Date Type Department Care Team (Latest Contact Info) Description 07/13/2024 9:00 AM MOTOR OPERATOR Hospital Encounter [facility] GI Lab [address] [place] [address] Jaya Grier MD [facility] [facility] [address] [place] [address] 07/13/2024 9:00 AM MOTOR OPERATOR - 07/13/2024 9:30 AM MOTOR OPERATOR Surgery [facility] GI Lab [address] [place] [address] Jaya Grier MD [facility] [facility] [address] [place] [address] ESOPHAGOGASTRODUODENOSCOPY Scheduled Procedures Name Priority Associated Diagnoses Date/Ti me ESOPHAGOGASTRODUODENOSCOPY Anemia, unspecified type Gastritis without bleeding, unspecified chronicity, unspecified gastritis type 07/13/2024 9:00 AM MOTOR OPERATOR COLONOSCOPY Iron deficiency anemia due to chronic blood loss documented as of this encounter Visit Diagnoses Not on filedocumented in this encounter Care Teams Salvage Grinder Relationship Specialty Start Date End Date Cherelle Corcoran MD PCP - General Family Medicine 08/30/19 Mark Queen MD Consulting Physician Infectious Diseases 01/10/20 Rudolph Welch MD [address] [facility] [address] [place] [address] Consulting Physician Infectious Diseases 12/05/22 Markie Ryan MD [address] [facility] [address] [place] [address] Consulting Physician Nephrology 12/05/22 Dulce Vega RN [address] [place] [address] [address] [place] [address] Wet Pour Mixer 10/07/23 05/03/24 [place] [address] [facility] [address] [place] [address] Consulting Physician Nephrology 10/22/23 documented as of this encounter
--- OUTSIDE RECORDS SUMMARY | 2024-07-04 04:05 | XMS_ITS | Encounter Summary ---
Author Organization [facility] Healthcare Address [address] [place] [address] Care Team Providers Care Chief Cloth Finishing Range Operator Name Role Phone Cherelle Corcoran MD Primary Care Pro vider Mark Queen MD Unavailable [phone] Rudolph Welch MD Unavailable Markie Ryan MD Unavailable Dulce Vega RN Unavailable [phone] Jimbo Strauss MD Unavailable [phone] Reason for Visit * Reason Onset Date Comments Appointment Request 11/18/2023 Encounter Details Date Type Department Care Team ([facility] Contact Info) Description 11/18/2023 Telephone [facility] Medical Group Primary Care at [address] [address] Cherelle Corcoran MD [address] [place] [address] Appointment Request Social History Tobacco Use Types Packs/Day Years Used Date Smoking Tobacco: Never Smokeless Tobacco: Never Alcohol Use Standard Drinks/Week Comments Not Currently 0 (1 standard drink = 0.6 oz pur e alcohol) [facility] Utilities Answer Date Recorded In [...] often do you attend chur ch or druze services? More than 4 times per year [...] in a custodial (including now)? No 10/30/2023 Personal Safety Answer Date Recorded Have you ever been in or are you currently in a harmful physical or emotional relationship or is someone making you feel afraid or unsafe? Denies 12/03/2023 Comments No Sex and Gender Information Value Date Recorded Sex Assigned at Not on file Legal Sex Female 9:03 AM MARINE STEWARD Gender Identity Female 02/08/2020 6:39 PM CDT Sexual Orientation Not on file documented as of this encounter Miscellaneous Notes * Telephone Encounter - Sandy Mota MA - 11/19/2023 7:58 AM CDT Spoke with pt daughter and she stated that pt is in senior living and seeing a physician there and last time she came to our office they told her they wont be able to see her if she keeps coming to our office. Spoke with Dr. Corcoran and she advised that she continue to see the physician on staff there. She verbalized understanding, nothing further at this time * Telephone Encounter - Kate Ivory - 11/18/2023 12:48 PM CDT Appointment Request What visit type does the patient need? Visit Type: Established Patient What is the reason for the visit? follow up from ER visit following dialysis yesterday was conscious but nonresponsive What is the reason we were unable to schedule the appointment? Current appointment availability didnot meet patient's need. Nothing available until February. If applicable, were all members of the patient's PCP care team offered (e.g., nurse practioner(s), physician environmental assistant(s)) ? N/A Additional Comments: Please advise margoth./ Does message need to be routed? Yes-Action Needed documented in this encounter Plan of Treatment Upcoming Encounters Date Type Department Care Team (Latest Contact Info) Description 07/13/2024 9:00 AM MARINE STEWARD Hospital Encounter [facility] GI Lab [address] [place] [address] Jaya Grier MD [address] [facility] [address] [place] [address] 07/13/2024 9:00 AM MARINE STEWARD - 07/13/2024 9:30 AM MARINE STEWARD Surgery [facility] GI Lab [address] [place] [address] Jaya Grier MD [address] [place] [address] [address] [place] [address] ESOPHAGOGASTRODUODENOSCOPY Scheduled Procedures Name Priority Associated Diagnoses Date/Ti me ESOPHAGOGASTRODUODENOSCOPY Anemia, unspecified type Gastritis without bleeding, unspecified chronicity, unspecified gastritis type 07/13/2024 9:00 AM MARINE STEWARD COLONOSCOPY Iron deficiency anemia due to chronic blood loss documented as of this encounter Visit Diagnoses Not on filedocumented in this encounter Care Teams Chief Cloth Finishing Range Operator Relationship Specialty Start Date End Date Cherelle Corcoran MD PCP - General Family Medicine 08/30/19 Mark Queen MD Consulting Physician Infectious Diseases 01/10/20 Rudolph Welch MD [address] [facility] [address] [place] [address] Consulting Physician Infectious Diseases 12/05/22 Markie Ryan MD [address] [facility] [address] [place] [address] Consulting Physician Nephrology 12/05/22 Dulce Vega, ALIREZA [address] [place] [address] [address] [place] [address] Felt Hat Steamer 10/07/23 05/03/24 [place] [address] [facility] [address] [place] [address] Consulting Physician Nephrology 10/22/23 documented as of this encounter
--- OUTSIDE RECORDS SUMMARY | 2024-07-04 04:05 | XMS_ITS | Encounter Summary ---
Author Organization [facility] Address [address] [place] [address] Phone Care Team Providers Care Newspaper Peddler Name Role Phone Cherelel Corcoran MD Primary Care Pro vider Mark Queen MD Unavailable [phone] Rudolph Welch MD Unavailable Markie Ryan MD Unavailable [phone] Dulce Vega RN Unavailable [phone] Jimbo Strauss MD Unavailable [phone] Encounter Details Date Type Department Care Team (Late st Contact Info) Description 11/04/2023 3:30 PM CDT Procedure visit [facility] Otolaryngology [address] [place], [place] [address] [address] Dulce Mcnulty Middle ear effusion, right (Primary Dx) Social History Tobacco Use Types Packs/Day Years Used Date Smoking Tobacco: Never Smokeless Tobacco: Never Alcohol Use Standard Drinks/Week Comments Not Currently 0 (1 standard drink = 0.6 oz pur e alcohol) [facility] Utilities Answer Date Recorded In the past 12 months has th e [employer], gas, oil, or water company threatened to [...] often do you attend chur ch or roman catholic services? More than 4 times per [...] on file Legal Sex Female 9:03 AM MANAGER OF BUSINESS OPERATIONS Gender Identity Female 02/08/2020 6:39 PM CDT Sexual Orientation Not on file documented as of this encounter Procedure Notes * Dulce Luis - 11/04/2023 3:30 PM CDT Procedures Audiologic Evaluation Referring physician: Patient referred by HANG Ugalde History: Patient here for updated tympanograms as follow-up for middle ear effusion. Otoscopy: Ear canals clear of cerumen bilaterally. Tympanometry: Right:Type B tymp with normal ear canal volume and is consistent with abnormal middleear function/possible middle ear effusion. Left: Type As tymp and is consistent with abnormal middle ear function/reduced compliance. Counseling: Patient and her daughter were counseled on tympanogram results. Recommendations: -Patient will follow-up with HANG Ugalde for test results and recommendations. -Repeat testing per Nurse Practitioner request. documented in this encounter Plan of Treatment Upcoming Encounters Date Type Department Care Team (Latest Contact Info) Description 07/13/2024 9:00 AM MANAGER OF BUSINESS OPERATIONS Hospital Encounter [facility] GI Lab [address] [place] [address] Jaya Grier MD [address] [address] 07/13/2024 9:00 AM MANAGER OF BUSINESS OPERATIONS - 07/13/2024 9:30 AM MANAGER OF BUSINESS OPERATIONS Surgery [facility] GI Lab [address] [place] [address] Jaya Grier MD [address] [facility] [address] [place] [address] ESOPHAGOGASTRODUODENOSCOPY Scheduled Procedures Name Priority Associated Diagnoses Date/Ti co ESOPHAGOGASTRODUODENOSCOPY Anemia, unspecified type Gastritis without bleeding, unspecified chronicity, unspecified gastritis type 07/13/2024 9:00 AM MANAGER OF BUSINESS OPERATIONS COLONOSCOPY Iron deficiency anemia due to chronic blood loss documented as of this encounter Visit Diagnoses Diagnosis Middle ear effusion, right- Primary Anemia, unspecified type Gastritis without bleeding, unspecified chronicity, unspecified gastritis type documented in this encounter Care Teams Newspaper Peddler Relationship Specialty Start Date End Date Cherelle Corcoran MD PCP - General Family Medicine 08/30/19 Mark Queen MD Consulting Physician Infectious Diseases 01/10/20 Rudolph Welch MD [address] [facility] [address] [place] [address] Consulting Physician Infectious Diseases 12/05/22 Markie Ryan MD [address] [facility] [address] [place] [address] Consulting Physician Nephrology 12/05/22 Dulce Vega, ALIREZA [address] [place] [address] [address] [place] [address] Toolmaker Helper 10/07/23 05/03/24 [place] [address] [address] Consulting Physician Nephrology 10/22/23 documented as of this encounter
--- OUTSIDE RECORDS SUMMARY | 2024-07-04 04:05 | XMS_ITS | Encounter Summary ---
Author Organization [facility] Healthcare Address [address] [place] [address] Care Team Providers Care Senior Quality Control Technician Name Role Phone Cherelle Corcoran MD Primary Care Pro vider Mark Queen MD Unavailable [phone] Rudolph Welch MD Unavailable Markie Ryan MD Unavailable [phone] Dulce Vega RN Unavailable [phone] Jimbo Strauss MD Unavailable [phone] Reason for Visit * Reason Onset Date Comments Medical Question/Miscellaneous 11/10/2023 Encounter Details Date Type Department Care Team ([facility] st Contact Info) Description 11/10/2023 Telephone [facility] Medical Group Primary Care at [address] [address] Cherelle Corcoran MD [address] [place] [address] Medical Question/Miscellaneous Social History Tobacco Use Types Packs/Day Years Used Date Smoking Tobacco: Never Smokeless Tobacco: Never Alcohol Use Standard Drinks/Week Comments Not Currently 0 (1 standard drink = 0.6 oz pur e alcohol) [facility] Utilities Answer Date Recorded In the [...] in a alf (including now)? No 10/30/2023 Personal Safety Answer Date Recorded Have you ever been in or are you currently in a harmful physical or emotional relationship or is someone making you feel afraid or unsafe? Denies 12/03/2023 Comments No Sex and Gender Information Value Date Recorded Sex Assigned at Not on file Legal Sex Female 9:03 AM FRONT DESK ATTENDANT Gender Identity Female 02/08/2020 6:39 PM CDT Sexual Orientation Not on file documented as of this encounter Miscellaneous Notes * Telephone Encounter - Bear Mukherjee - 11/10/2023 1:06 PM CDT Medical Question/Miscellaneous Caller???s Concern: Patients daughter called and stated that patient is currently in a nursing homefor about 2 weeks for rehab. She was told if patient keeps today's appointment then group home tani not be able to treat patient at all. Daughter wanted to keep appointment and have provider sign off on discharging patient from prison. Explained that is not a guarantee that provider willdo that. She is going to call prison for clarification on how to get mom out of home since she believes she no longer needs it. She will call back if she needs anything from us. No action needed at this time. Does message need to be routed? No documented in this encounter Plan of Treatment Upcoming Encounters Date Type Department Care Team (Latest Contact Info) Description 07/13/2024 9:00 AM FRONT DESK ATTENDANT Hospital Encounter [facility] GI Lab [address] [place] [address] Jaya Grier MD [address] [facility] [address] [place] [address] 07/13/2024 9:00 AM FRONT DESK ATTENDANT - 07/13/2024 9:30 AM FRONT DESK ATTENDANT Surgery [facility] GI Lab [address] [place] [address] Jaya Grier MD [address] [facility] [address] [place] [address] ESOPHAGOGASTRODUODENOSCOPY Scheduled Procedures Name Priority Associated Diagnoses Date/Ti me ESOPHAGOGASTRODUODENOSCOPY Anemia, unspecified type Gastritis without bleeding, unspecified chronicity, unspecified gastritis type 07/13/2024 9:00 AM FRONT DESK ATTENDANT COLONOSCOPY Iron deficiency anemia due to chronic blood loss documented as of this encounter Visit Diagnoses Not on filedocumented in this encounter Care Teams Senior Quality Control Technician Relationship Specialty Start Date End Date Cherelle Corcoran MD PCP - General Family Medicine 08/30/19 Mark Queen MD Consulting Physician Infectious Diseases 01/10/20 Rudolph Welch MD [address] [facility] [address] [place] [address] Consulting Physician Infectious Diseases 12/05/22 Markie Ryan MD [address] [facility] [address] [place] [address] Consulting Physician Nephrology 12/05/22 Dulce Vega, ALIREZA [address] [place] [address] [address] [place] [address] Sider 10/07/23 05/03/24 [place] [address] [address] Consulting Physician Nephrology 10/22/23 documented as of this encounter
--- OUTSIDE RECORDS SUMMARY | 2024-07-04 04:05 | XMS_ITS | Encounter Summary ---
Author Organization [facility] Healthcare Address [address] [place] [address] Care Team Providers Care Fisher Purse Seine Name Role Phone hCerelle Corcoran MD Primary Care Pro vider Mark Queen MD Unavailable [phone] Rudolph Welch MD Unavailable Markie Ryan MD Unavailable [phone] Dulce Vega RN Unavailable [phone] Jimbo Strauss MD Unavailable [phone] Reason for Referral * Diagnostic Imaging (Routine) - Closed Specialty Diagnoses / Procedures Referred By Contflex t Referred To Contact Diagnoses Acute pain of left shoulder Procedures [place] Fluoro Guided Injection Shoulder Left Perico Raphael PA [address] [facility] [address] [address] Phone: tel: fax: [facility] [address] [place] [phone] Referral ID Status Reason Start Date Expiration Date Visits Re quested Visits Authorized [id number] Closed 12/11/2023 01/09/2025 1 1 Reason for Visit * Diagnostic Imaging (Routine) - Closed Specialty Diagnoses / Procedures Referred By Maryse t Referred To Contact Diagnoses Acute pain of left shoulder Procedures FL Fluoro Guided Injection Shoulder Left Perico Raphael PA [address] [facility] [place] [address] Phone: tel: fax: [facility] [address] [place] [address] Referral ID Status Reason Start Date Expiration Date Visits Re quested Visits Authorized [id number] Closed 12/11/2023 01/09/2025 1 1 Encounter Details Date Type Department Care Team (Latest Contact Info) Description 12/18/2023 8:05 AM CDT - 12/18/2023 11:59 PM CDT Hospital Encounter [facility] Diagnostic Imaging [facility] [place] [address] Left shoulder pain, unspecified chronicity Discharge Disposition: Discharge to home or self care Social History Tobacco Use Types Packs/Day Years Used Date Smoking Tobacco: Never Smokeless Tobacco: Never Alcohol Use Standard Drinks/Week Comments Not Currently 0 (1 standard drink = 0.6 oz pur e alcohol) [facility] Utilities Answer Date Recorded In the past 12 months has [employer], gas, oil, or water company threatened [...] health care facility (including now)? No 10/30/2023 Personal Safety Answer Date Recorded Have you ever been in or are you currently in a harmful physical or emotional relationship or is someone making you feel afraid or unsafe? Denies 12/03/2023 Comments No Sex and Gender Information Value Date Recorded Sex Assigned at Not on file Legal Sex Female 9:03 AM SLITTER CREASER SLOTTER HELPER Gender Identity Female 02/08/2020 6:39 PM CDT [...] as needed for rhinitis FreeStyle Madhav 3 [place] misc Use Madhav 3 reader to scan [...] by mouth daily 30 tablet 11 11/03/2023 atorvastatin (LIPITOR) 40 mg tablet Take 1 [...] with meals 180 tablet 3 12/18/2023 4 famotidine (PEPCID) 10 mg tablet Take [...] 14 days 6 kit 3 03/24/2023 4 risperiDONE (RisperDAL) 1 mg tablet Take [...] AM [facility] Hospital Encounter [facility] GI Lab [address] [place] [address] Jaya Grier MD [facility] [facility] [address] [place] [address] 07/13/2024 9:00 AM SLITTER CREASER SLOTTER HELPER - 07/13/2024 9:30 AM [facility] Surgery [facility] GI Lab [address] [place] [address] Jaya Grier MD [address] [facility] [address] [place] [address] ESOPHAGOGASTRODUODENOSCOPY Scheduled Procedures Name Priority Associated Diagnoses Date/Ti me ESOPHAGOGASTRODUODENOSCOPY Anemia, unspecified type Gastritis without bleeding, unspecified chronicity, unspecified gastritis type 07/13/2024 9:00 AM SLITTER CREASER SLOTTER HELPER COLONOSCOPY Iron deficiency anemia due to chronic blood loss documented as of this encounter Procedures Procedure Name Priority Date/Time Associated Diagnosis Comments FLUORO GUIDED INJECTION SHOULDER LEFT Schedule Routine, Read Routine (OP Routine) 12/18/2023 8:55 AM CDT Left shoulder pain, unspecified chronicity documented in this encounter Results * FL Fluoro Guided [...] AM T: ??12/18/2023 9:36 AM Report ID: [id number] Reading Location: ??[id number] Procedure Note James Javier MD - 12/18/2023 [...] Electronically signed by James Javier M.D. MZ: VALENTINA Report ID: [id number] Reading Location: [id number] Perico MERIDA FLUOROSCOPY PARISA DOLAN Final Result documented in this encounter Visit Diagnoses Diagnosis Left shoulder pain, unspecified chronicity Anemia, unspecified type Gastritis without bleeding, unspecified chronicity, unspecified gastritis type documented in this encounter Administered Medications Inactive Administered Medications - up to 3 most recent administrations Medication Order MAR Action Action Date Dose Rate Site BUPivacaine (MARCAINE) 0.25 % (2.5 mg/mL) preservative free injection 12.5 mg 12.5 mg (5 mL), intra-articular, Once, On Thu12/18/23 at 0930, For 1 dose Given 12/18/2023 8:58 AM CDT 12.5 mg iohexoL (OMNIPAQUE) 240 mg iodine/mL injection solution 10 mL 10 mL, intra-articular, Once in imaging, contrast, Starting on Thu12/18/23 at 0856, For 1 dose Contrast Given 12/18/2023 8:58 AM CDT 10 mL triamcinolone (KENALOG) 40 mg/mL injection 40 mg 40 mg, intra-articular, Once, On Thu12/18/23 at 0930, For 1 dose Given 12/18/2023 8:58 AM CDT 40 mg documented in this encounter Care Teams Fisher Purse Seine Relationship Specialty Start Date End Date Cherelle Corcoran MD PCP - General Family Medicine 08/30/19 Mark Queen MD Consulting Physician Infectious Diseases 01/10/20 Rudolph Welch MD [address] [facility] [address] [place] [address] Consulting Physician Infectious Diseases 12/05/22 Markie Ryan MD [address] [facility] [address] [place] [address] Consulting Physician Nephrology 12/05/22 Dulce Vega, ALIREZA [address] [place] [address] [address] [place] [address] [employer] 10/07/23 05/03/24 [place] [address] [address] [facility] [address] [place] [address] Consulting Physician Nephrology 10/22/23 documented as of this encounter
--- OUTSIDE RECORDS SUMMARY | 2024-07-04 04:05 | XMS_ITS | Encounter Summary ---
Author Organization [facility] Healthcare Address [address] [place] [address] Care Team Providers Care Ground Systems Engineer Name Role Phone Cherelle Corcoran MD Primary Care Pro vider Mark Queen MD Unavailable [phone] Rudolph Welch MD Unavailable Markie Ryan MD Unavailable Dulce Vega RN Unavailable [phone] Jimbo Strauss MD Unavailable [phone] Reason for Visit * Reason Onset Date Comments Medical Question/Miscellaneous 12/18/2023 Encounter Details Date Type Department Care Team ([facility] st Contact Info) Description 12/18/2023 Telephone [facility] Medical Group Primary Care at [address] [address] Cherelle Corcoran MD [address] [place] [address] Medical Question/Miscellaneous Social History Tobacco Use [...] materials from doctor or pharmacy Never 12/28/2023 [facility] Utilities Answer Date Recorded In the past 12 months has th e [employer], gas, oil, or water [employer] threatened to shut off services in your [...] any clubs o r organizations such as tenriism groups, unions, fraternal or athletic groups, or [...] place to sleep or slept in a chcf (including now)? No 10/30/2023 Housing Stability Vital [...] were you homeless or living in a chcf (including now)? No 12/21/2023 Personal Safety Answer Date Recorded Have you ever been in or are you currently in a harmful physical or emotional relationship or is someone making you feel afraid or unsafe? 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 AM SUPERVISOR STONE Gender Identity Female 02/08/2020 6:39 PM CDT Sexual Orientation Not on file documented as of this encounter Miscellaneous Notes * Telephone Encounter - Monserrat Daniel - 12/18/2023 9:49 AM CDT Medical Question/Miscellaneous Caller???s Concern: pateint's daughter Areli (on HIPAA) is calling asking to speak with Sandy or someone in the office in regards to patient's JOY appt today at 10:00 am. Areli is running a little late but states patient needs to be seen today. BEHAVIORAL SCIENCE CHAIR called the backline spoke to Indira who stated to warm transfer Areli through. Does message need to be routed? No documented in this encounter Plan of Treatment Upcoming Encounters Date Type Department Care Team (Latest Contact Info) Description 07/13/2024 9:00 AM SUPERVISOR STONE Hospital Encounter [facility] GI Lab [address] [place] [address] Jaya Grier MD [address] [place] [address] [address] [place] [address] 07/13/2024 9:00 AM SUPERVISOR STONE - 07/13/2024 9:30 AM SUPERVISOR STONE Surgery [facility] GI Lab [address] [place] [address] Jaya Grier MD [facility]0 [facility] [address] [place] [address] ESOPHAGOGASTRODUODENOSCOPY Scheduled Procedures Name Priority Associated Diagnoses Date/Ti me ESOPHAGOGASTRODUODENOSCOPY Anemia, unspecified type Gastritis without bleeding, unspecified chronicity, unspecified gastritis type 07/13/2024 9:00 AM SUPERVISOR STONE COLONOSCOPY Iron deficiency anemia due to chronic blood loss documented as of this encounter Visit Diagnoses Not on filedocumented in this encounter Additional Health Concerns Infection Onset Date Last Indicated Resolved Time 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 12/19/2023 12/19/2023 3:58 PM CDT 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 12/29/2023 06/26/2024 3:05 AM SUPERVISOR STONE documented as of this encounter Care Teams Ground Systems Engineer Relationship Specialty Start Date End Date Cherelle Corcoran MD PCP - General Family Medicine 08/30/19 Mark Queen MD Consulting Physician Infectious Diseases 01/10/20 Rudolph Welch MD [address] [facility] [address] [place] [address] Consulting Physician Infectious Diseases 12/05/22 Markie Ryan MD [address] [facility] [address] [place] [address] Consulting Physician Nephrology 12/05/22 Dulce Vega, ALIREZA [address] [place] [address] [address] [place] [address] Oral Health Therapist 10/07/23 05/03/24 [place] [address] [address] [place] [address] Consulting Physician Nephrology 10/22/23 documented as of this encounter
--- OUTSIDE RECORDS SUMMARY | 2024-07-04 04:05 | XMS_ITS | Encounter Summary ---
Author Organization [facility] Healthcare Address [address] [place] [address] Care Team Providers Care Tumbling Instructor Name Role Phone Cherelle Corcoran MD Primary Care Pro vider Mark Queen MD Unavailable [phone] Rudolph Welch MD Unavailable Markie Ryan MD Unavailable [phone] Dulce Vega RN Unavailable [phone] Jimbo Strauss MD Unavailable [phone] Jaya Grier MD Unavailable Reason for Referral * Consultation (Routine) - Closed Specialty Diagnoses / Procedures Referred By Contac t Referred To Contact Orthopedic Surgery Diagnoses Acute pain of left shoulder Cherelle Corcoran MD [facility] [address] Phone: tel: fax: [facility] [address] [place] [address] [place] [phone] Phone: tel: fax: Referral ID Status Reason Start Date Expiration Date V isits Requested Visits Authorized [id number] Closed Specialty Services Required 12/07/2023 01/05/2025 1 1 Question Answer Please select the performing region: [facility] [[id number]] Please select the performing department: [facility] [[id number]] # of visits: 1 Reason for Visit * Reason Onset Date Comments Follow-up 12/07/2023 Encounter Details Date Type Department Care Team ([facility] st Contact Info) Description 12/07/2023 Nurse Triage [facility] [place] [address] [facility] [address] [place] [address] Cherelle Corcoran MD [address] [facility] [address] [place] [address] Acute pain of left shoulder (Primary Dx) Social History [...] week 02/01/2024 How often do you attend [facility] or denominational services? More than 4 times [...] any time in the past 12 [facility], were you homeless or living in a group home (including now)? No 02/01/2024 Personal Safety Answer Date Recorded Have you ever been in or are you currently in a harmful physical or emotional relationship or is someone making you feel afraid or unsafe? Denies 03/01/2024 Comments No Sex and Gender Information Value Date Recorded Sex Assigned at Not on file Legal Sex Female 9:03 AM BROWNFIELD PROGRAM COORDINATOR Gender Identity Female 02/08/2020 6:39 PM CDT Sexual Orientation Not on file documented as of this encounter Miscellaneous Notes * Telephone Encounter - Sandy Mota MA - 12/10/2023 1:42 PM CDT Spoke with pt daughter and informed her that if she is in severe pain then being evaluated in the ER would be the best plan of care for pt at this moment. While on the phone I could hear pt in pain in the background. She does have an appointment with ortho tomorrow but pt daughter stated she cannotwait that long. She is agreeable to taking pt to ER. Nothing further at this time. * Telephone Encounter - Dana Mike MA - 12/10/2023 1:08 PM CDT Call Back Caller???s Concern: pt's daughter returning Sandy's call. She was warm transferred to back line. Does message need to be routed? No * Telephone Encounter - Kita Tran - 12/09/2023 12:43 PM CDT Call Back Caller???s Concern: Daughter Areli returning Sandy's call. Attempted twice to warm transfer. Please call Areli back at [phone]. Does message need to be routed? Yes-Action Needed * Telephone Encounter - Sandy Mota MA - 12/09/2023 12:23 PM CDT Lmov for pt daughter to return call * Telephone Encounter - Cherelle Corcoran MD - 12/09/2023 12:09 PM CDT Yes the only other noteable finding was stool in abdomen, for which they put her on colace. If she is till having constipation can add miralax as needed. I think given her chronic medical conditions seeing orthopedics for consideration of joint injection is likely the best for of pain control if tylenol/lidocaine patches are not adequate. It appears the referral has been authorized so they shouldbe able to schedule now. * Telephone Encounter - Sandy Mota MA - 12/08/2023 11:54 AM CDT Spoke with pt daughter and she stated she is using the lidocaine patches that were previously prescribed but is worried as pain is severe. Pt daughter is wanting to know if ALL imaging was reviewed by Dr. Corcoran that was done in ER. If not please review and I can call pt daughter back with any changes. Thanks! * Telephone Encounter - Cherelle Corcoran MD - 12/07/2023 5:18 PM CDT Reviewed XR, concern for chronic rotator cuff disease. Recommend seeing orthopedics, referral placed. Has she been using topical lidocaine? * Telephone Encounter - Paulina Bosch RN - 12/07/2023 4:04 PM CDT Pt's daughter Areli (HIPAA verified) calls into learning engineer after having concerns for pt. Pt havingcontinued LUE pain for weeks. Went to ED on 12/02, did imaging. Pt denies worsening pain, change in color, temp or size of LUE. Pt can still use LUE but is painful. Pt was told to take tylenol but this was not helpful.Pt advised to call back with worsening symptoms. Pt wanting to see pcp or have pcporder MRI or CT scans. No appts in office, sending to pcp office for determination. Areli had question on dosing of medication sent by ED last week. Advised to call the pharmacy forclarification. Areli agrees to this,. Reason for Disposition Patient wants to be seen Protocols used: Recent Medical Visit for Injury Follow-up [id number] * Telephone Encounter - Paulina Bosch RN - 12/07/2023 3:56 PM CDT Regarding: severe pain in left shoulder/arm, lump on neck ----- Message from Xiao Astudillo sent at 12/07/2023 3:55 PM CDT ----- Symptom Based Call Chief Complaint(s): severe pain in left shoulder/arm, lump on neck Duration: 2 weeks What type of symptom(s) is the patient experiencing? Non-Emergent. Is this a new or reoccurring symptom(s)? new What have you tried to help your symptom(s)? none Why was appointment not scheduled? Appointment availability did not meet the patient's need. Additional Comments: Patient's daughter, Areli states patient has been having severe pain in leftshoulder/arm for 2 weeks. They went to ER 12/02 after showing up late for office visit and not beingseen. ER took x-rays of shoulder. Areli states patient won't let anyone touch her arm and won't use it. She also noticed a lump on patient neck on left side last week. Does message need to be routed? Yes-Action Needed documented in this encounter Plan of Treatment Upcoming Encounters Date Type Department Care Team (Latest Contact Info) Description 07/13/2024 9:00 AM BROWNFIELD PROGRAM COORDINATOR Hospital Encounter [facility] [address] [place] [phone] Jaya Grier MD [address] [place] [address] [address] [place] [id number] 07/13/2024 9:00 AM BROWNFIELD PROGRAM COORDINATOR - 07/13/2024 9:30 AM BROWNFIELD PROGRAM COORDINATOR Surgery [facility] [address] [place] [id number] Jaya Grier MD [address] [place] [address] [address] [place] [id number] ESOPHAGOGASTRODUODENOSCOPY Scheduled Procedures Name Priority Associated Diagnoses Date/Ti me ESOPHAGOGASTRODUODENOSCOPY Anemia, unspecified type Gastritis without bleeding, unspecified chronicity, unspecified gastritis type 07/13/2024 9:00 AM BROWNFIELD PROGRAM COORDINATOR COLONOSCOPY Iron deficiency anemia due to chronic blood loss Scheduled Referrals Name Type Priority Associated Diagnoses Order Schedule Ambulatory referral to Orthopedic Surgery Outpatient Referral Routine Acute pain of left shoulder Expected: 12/21/2023 (Approximate), Expires: 12/06/2024 documented as of this encounter Visit Diagnoses Diagnosis Acute pain of left shoulder- Primary Anemia, unspecified type Gastritis without bleeding, unspecified chronicity, unspecified gastritis type documented in this encounter Additional Health Concerns Infection Onset Date Last Indicated Resolved Time 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 12/19/2023 12/19/2023 3:58 PM CDT 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 12/29/2023 06/26/2024 3:05 AM BROWNFIELD PROGRAM COORDINATOR documented as of this encounter Care Teams Tumbling Instructor Relationship Specialty Start Date End Date Cherelle Corcoran MD PCP - General Family Medicine 08/30/19 Mark Queen MD Consulting Physician Infectious Diseases 01/10/20 Rudolph Welch MD [address] [facility] [address] [place] [address] Consulting Physician Infectious Diseases 12/05/22 Markie Ryan MD [address] [facility] [address] [place] [address] Consulting Physician Nephrology 12/05/22 Dulce Vega, ALIREZA [address] [place] [address] [address] [place] [address] Candle Wrapping Machine Operator 10/07/23 05/03/24 [place] [id number] [place] [address] Consulting Physician Nephrology 10/22/23 Jaya Grier MD [address] [facility] [address] [place] [address] Consulting Physician Gastroenterology 02/01/24 documented as of this encounter
--- OUTSIDE RECORDS SUMMARY | 2024-07-04 04:05 | XMS_ITS | Encounter Summary ---
Author Organization [facility] Healthcare Address [address] [place] [address] Care Team Providers Care Patient Registration Supervisor Name Role Phone Cherelle Corcoran MD Primary Care Pro vider Mark Queen MD Unavailable [phone] Rudolph Welch MD Unavailable [phone] Markie Ryan MD Unavailable [phone] Dulce Vega RN Unavailable [phone] Jimbo Strauss MD Unavailable [phone] Reason for Referral * Home Health (Routine) - Closed Specialty Diagnoses / Procedures Referred By Contac t Referred To Contact Home Health Services / Home Health and Hospice Diagnoses CKD (chronic kidney disease) stage 4, GFR 15-29 ml/min (CMS/HCC) (HCC) Transient alteration of awareness Chavez Hartman MD [facility] [address] Phone: tel: fax: [facility] Home Care Services [address] [place] [address] Phone: tel: fax: Referral ID Status Reason Start Date Expiration Date V isits Requested Visits Authorized [id number] Closed Specialty Services Required 12/25/2023 01/23/2025 1 1 Question [facility] Primary disciplines requested: Prison, Physical Therapy Secondary disciplines requested: Occupational Therapy Home Health Services Disease and Medication Management, Therapy to Eval/Tx Therapy instructions: Evaluation/treatment Requested [...] face to face encounter occurred on (date): 12/25/2023 The encounter with the patient was in whole, or in part, for the following medical condition, which is the primary reason for home health care. (List medical condition): came with altered mental status, ESRD on dialysis, uncontrolled HTN, gait instability I certify that, based on my findings, the following services are medically necessary skilled home health services: Therapy to Eval/Tx Clinical findings that support the need for home care: Medical condition requiring skilled assessment/education I certify that my clinical findings support patient's homebound status. Homebound criteria met because: Requires assistance of another to leave home safely * Home Health (Routine) - Closed Specialty Diagnoses / Procedures Referred By Contac t Referred To Contact Home Health Services / Home Health and Hospice Diagnoses CKD (chronic kidney disease) stage 4, GFR 15-29 ml/min ([facility]) ([facility]) Chavez Hartman MD [facility] [place] [address] Phone: tel: fax: [facility] Home Care Services [address] [place] [address] Phone: tel: fax: Referral ID Status Reason Start Date Expiration Date V isits Requested Visits Authorized [id number] Closed Specialty Services Required 12/25/2023 01/23/2025 1 1 Question Answer [facility] Home Health Primary disciplines requested: Physical Therapy Secondary disciplines requested: Occupational Therapy Home Health Services Therapy to Eval/Tx Therapy instructions: Evaluation/treatment Requested Start of Care Date: Other Comment: SOC date 12/28/23 Physician to follow patient's care (the person listed here will be responsible for signing ongoing orders): PCP I attest that I or another qualified licensed provider saw the patient 90 days prior to or 30 days post admission and this face to face encounter meets the necessary Home Health requirements. The face to face encounter occurred on (date): 12/25/2023 The encounter with the patient was in whole, or in part, for the following medical condition, which is the primary reason for home health care. (List medical condition): ESRD on dialysis, Altered mental status , uncontrolled HTN I certify that, based on my findings, the following services are medically necessary skilled home health services: Therapy to Eval/Tx Clinical findings that support the need for home care: Medical condition requiring skilled assessment/education I certify that my clinical findings support patient's homebound status. Homebound criteria met because: Requires assistance of another to leave home safely Reason for Visit * Reason Comments Altered Mental Status * Auth/Cert (Routine) Specialty Diagnoses / Procedures Referred By Contac t Referred To Contact Diagnoses ESRD (end stage renal disease) on dialysis (HCC) Syncope, unspecified syncope type Leukocytosis, unspecified type Procedures na Referral ID Status Reason Start Date Expiration Date Visits Re quested Visits Authorized [id number] 1 1 Encounter Details Date Type Department Care Team (Latest Contact Info) Description 12/19/2023 2:17 PM CDT - 12/26/2023 7:32 PM CDT Hospital Encounter [facility] [address] [place] [id number] Markie Sofia MD [address] [place] [address] [place] [address] Audie Spencer MD [address] [place] [address] [place] [address] Chavez Hartman MD [address] [place] [address] [address] [place], [place] [id number] Syncope, unspecified syncope type (Primary Dx); ESRD (end stage renal disease) on dialysis ([facility]); Leukocytosis, unspecified type; Anemia of renal disease; ESRD on dialysis ([facility]); CKD (chronic kidney disease) stage 4, GFR 15-29 ml/min ([facility]) ([facility]); Transient alteration of awareness; ESRD on hemodialysis ([facility]) ([facility]) [N18.6, Z99.2] Discharge Disposition: Discharge to home, home health skilled care Social History Tobacco Use Types Packs/Day Years Used Date Smoking Tobacco: Never Smokeless Tobacco: Never Alcohol Use Standard Drinks/Week Comments Not Currently 0 (1 standard drink = 0.6 oz pur e alcohol) [facility] Utilities Answer Date Recorded In the past 12 months has e [employer], gas, oil, or water [employer] threatened to shut off services in your [...] on file 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 Gender Identity Female 02/08/2020 6:39 PM CDT Sexual Orientation Not on file documented as of this encounter Last Filed Vital Signs Vital Sign Reading Time Taken Comments Blood Pressure 144/53 12/26/2023 3:46 PM CDT Pulse 82 12/26/2023 3:46 PM CDT Temperature 36.6 ??C (97.9 ??F) 12/26/2023 12:35 PM C DT Respiratory Rate 16 12/26/2023 3:46 PM CDT Oxygen Saturation 100% 12/26/2023 12:35 PM CDT Inhaled Oxygen Concentration - - Weight 54.6 kg (120 lb 5.9 oz) 12/24/2023 11:00 AM CDT Height 154.9 cm (5' 1 ) 12/19/2023 10:10 PM CDT Body Mass Index 22.74 12/19/2023 10:10 PM CDT documented in this encounter Discharge Summaries * Chavez Hartman MD - 12/25/2023 9:30 AM CDT Inpatient Discharge Summary Patient Name - Sixto Chakraborty Patient Age - 73 yrs Patient - [id number] [facility] - [id number] Document Creation Date: 12/25/2023 Admitting Provider, MD: Audie Spencer MD Discharge Provider, MD: Chavez Hartman MD Primary Care Physician at Discharge: Cherelle Corcoran MD [phone] Admission Date: 12/19/2023 Discharge Date/time: 12/25/2023 Admission Location: [facility] LOS - LOS: 6 days DETAILS OF HOSPITAL STAY Hospital Problems/Diagnoses Principal Problem: Syncope, unspecified syncope type Active Problems: Type 2 diabetes mellitus with diabetic neuropathy, with long-term current use of insulin (HCC) Primary hypertension Gastroesophageal reflux disease without esophagitis Schizoaffective disorder, bipolar type (CMS/HCC) (HCC) Parkinsonism (HCC) Anemia in chronic kidney disease, on chronic dialysis (HCC) ESRD on hemodialysis (CMS/HCC) (HCC) Pain in left arm Leukocytosis ESRD on dialysis (HCC) Anemia of renal disease Reason for Hospitalization: Syncope, Acute encephalopathy, Hospital Course: This is a 73-year-old female who has past medical history end-stage renal disease on hemodialysis congestive heart failure presented to ER with syncopal episode from dialysis center. Patient was on chronic dialysis. In the day of admission patient was on dialysis and had a syncopal episode for 1-[address] head negative. There was a consult for dialysis disequilibrium. Neurology was consulted. There was also concern for seizure. EEG was negative for global encephalopathy. Patient was hypotensive on dialysis 2. Most of the time she is hypotensive which is difficult to control but on dialysisdays during dialysis she hypotension. Needs to readjust antihypertensive as outpatient too. Will rec ommend the patient have her blood pressure medication after dialysis probably old reduce the symptoms. Patient will be discharged home with home health. Patient was condition improved significantly. Patient was at baseline A/P: Principal Problem: Syncope, unspecified syncope type Active Problems: Type 2 diabetes mellitus with diabetic neuropathy, with long-term current use of insulin ([facility]) Primary hypertension Gastroesophageal reflux disease without esophagitis Schizoaffective disorder, bipolar type (CMS/HCC) ([facility]) Parkinsonism (HCC) Anemia in chronic kidney disease, on chronic dialysis (HCC) ESRD on hemodialysis (CMS/HCC) ([facility]) Pain in left arm Leukocytosis ESRD on dialysis (HCC) Anemia of renal disease Resolved Problems: No resolved hospital problems. Assessment and plan 12/22/2023 1. Syncopal episode and collapse. Neurology is following. Patient refused EEG. 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 Patient had history of recent stroke. Neurology recommended EEG but patient refused. Patient is still very lethargic today. 2. Uncontrolled hypertension. Patient blood pressure dropped yesterday during dialysis. It went down to 70s. This morning again blood pressure is very high. Patient was on nifedipine. Coreg hydralazine. Continue that for now. Will check blood pressure again after dialysis. 3. End-stage renal disease on hemodialysis. Nephrology is following. Patient will have dialysis today. 4. Anemia of chronic disease. Hemoglobin is stable. Patient is on darbepoetin. Hemoglobin is 8.8. 5. Hyperkalemia resolved same is 4.5. Patient was having dialysis today Assessment and plan 12/23/2023 1. Syncopal episode and collapse with acute encephalopathy. but she is more awake and alert today. Improving. Patient did not have dialysis today. Could be related to dialysis induced hypotension. Will hold antihypertensive before dialysis. EEG showed diffuse cerebral dysfunction likely encephalopathy not suggestive of seizure 2. Uncontrolled hypertension. Blood pressure was again high this afternoon. I will give extra dose of nifedipine. Continue her other home medication for now. Will try to avoid hypotension. Will closely monitor blood pressure and will give hydralazine IV if systolic blood pressure goes above 180. 3. End-stage renal disease on hemodialysis nephrology is following. Plan for dialysis tomorrow 4. Anemia of chronic disease. Hemoglobin is stable. 5. Hyperkalemia: Resolved. Potassium is 4.2. Assessment and plan 12/24/2023 1. Syncopal episode and collapse with acute encephalopathy. Patient is more awake and alert today. I think this is her baseline. Patient had dialysis this morning. Tolerated better but again became hypotensive during the procedure and to receive albumin. Now blood pressure is better. Nephrology is okay for discharge 2. Generalized weakness. PT OT is following. Patient had not been worked for several days because of the mental status. 3. Uncontrolled hypertension. Blood pressure was better controlled. But blood pressure drops duringdialysis. I think patient might benefit to hold antihypertensive on dialysis days before dialysis. She should take her medicine after dialysis. I gave a dose of nifedipine yesterday. 4. Anemia of chronic disease from chronic kidney disease. Hemoglobin is stable. Discharge Details Physical Exam at Discharge: Discharge Condition: fair Pulse: 68 Resp: 18 BP: 159/60 Temp: 36.8 ??C (98.2 ??F) Weight: 54.6 kg (120 lb 5.9 oz) Pertinent Exam Findings at Discharge: General appearance: Not in acute distress: Sitting in the bedside chair Nervous system alert oriented x1. Patient was at her baseline. Heart regular rate and rhythm Lungs clear to auscultate Abdomen soft nontender bowel sounds present Discharge Disposition: Discharge to home, home health skilled care Code Status at Discharge: Full Code Active Issues & Recommended Plan for Follow-up: Allergies: Patient has no known allergies. Discharge Medications: Your medication list START taking these medications Instructions Last Dose Given Next Dose Due hydrALAZINE 25 mg tablet Commonly known as: APRESOLINE 25 mg, oral, 3 times daily NIFEdipine 60 mg 24 hr tablet Commonly known as: PROCARDIA XL/ADALAT CC 60 mg, oral, Daily CHANGE how you take these medications Instructions Last Dose Given Next Dose Due benztropine 2 mg tablet Commonly known as: COGENTIN What changed: medication strength how much to take when to take this 2 mg, oral, Daily docusate sodium 100 mg capsule Commonly known as: COLACE What changed: additional instructions 100 mg, oral, Every 12 hours risperiDONE 2 mg tablet Commonly known as: RisperDAL What changed: medication strength how much to take when to take this 2 mg, oral, Nightly CONTINUE taking these medications Instructions Last Dose Given Next Dose Due acetaminophen 500 mg capsule 1,000 mg, oral, 3 times daily PRN aspirin 81 mg enteric coated tablet 81 mg, oral, Daily atorvastatin 40 mg tablet Commonly known as: LIPITOR 40 mg, oral, Nightly calcium acetate(phosphat bind) 667 mg capsule Doctor's comments: Patient requests 90 days supply Commonly known as: PHOSLO TAKE 1 CAPSULE(667 MG) BY MOUTH THREE TIMES DAILY WITH MEALS carvediloL 3.125 mg tablet Commonly known as: COREG 3.125 mg, oral, 2 times daily with meals (bkfst, dinner) Easy Touch 32 gauge x 5/32 needle Generic drug: pen needle, diabetic USE DIRECTED FOUR TIMES DAILY famotidine 10 mg tablet Commonly known as: PEPCID 10 mg, oral, Daily ferrous sulfate 325 mg (65 mg of elemental iron) tablet 65 mg of elemental iron, oral, 2 times daily flash glucose scanning reader [facility] Use Madhav 3 reader to scan Madhav 3 sensor fluticasone propionate 50 mcg/actuation nasal spray Commonly known as: FLONASE 2 sprays, each nostril, Daily PRN FreeStyle Madhav 2 Sensor kit Doctor's comments: Type 2 diabetic, on 2 insulin Generic drug: flash glucose sensor Use to continually monitor glucose, change every 14 days FreeStyle Madhav 3 Douglas misc Generic drug: blood-glucose meter,continuous Use Madhav 3 reader to scan Madhav 3 sensor FreeStyle Madhav 3 Sensor device Generic drug: blood-glucose sensor Use for continuous glucose monitoring. Change sensor every 14 days insulin glargine 100 unit/mL (3 mL) pen [...] patch, transdermal, Daily PRN, to lower back polyethylene glycol 17 gram/dose bulk powder Commonly known as: MIRALAX 17 g, oral, Daily PRN Where to Get Your Medications These medications were sent to [id number] - [place] [address], [place] [phone] benztropine 2 mg tablet hydrALAZINE 25 mg tablet NIFEdipine 60 mg 24 hr tablet risperiDONE 2 mg tablet Time Spent in Discharge Process: I have spent 38 minutes on discharge planning activities. Test Results Pending at Discharge (If Blank, None Found): Operative Procedures Performed (If Blank, None Found): Outpatient Follow-Up: Future Appointments Date Time Provider Department Center 01/18/2024 1:30 PM Adryan Swenson MD [facility] Specialty 01/22/2024 11:45 AM [facility] 1 MAMMO RM 1 [id number] BRST [facility] 1 01/22/2024 12:30 PM [facility] 1 DEXA RM [id number] BRST [facility] 1 01/26/2024 11:00 AM Kayden Iyer, PT [id number] OPPT [facility] 1 02/05/2024 9:30 AM Perico Raphael PA [facility] OS 340 [facility] Specialty 02/15/2024 1:[address] [facility] Diab Ed [facility] Main Contact Information for Follow-ups Cherelle Corcoran MD Specialty: Family Medicine Relationship: PCP - General [address] [place] [id number] Next Steps: Follow up in 1 week(s) [facility] Home Care Services Specialty: Home Health and Hospice [address] [facility] [address] Next Steps: Follow up Questions: Service Line: Home Health Primary disciplines requested: Physical Therapy Secondary disciplines requested: Occupational Therapy Home Health Services: Therapy to Eval/Tx Therapy instructions: Evaluation/treatment Requested Start of Care Date: Other Comment: SOC date 12/28/23 Physician to follow patient's care (the person listed here will be responsible for signing ongoing orders): PCP I attest that I or another qualified licensed provider saw the patient 90 days prior to or 30 days post admission and this face to face encounter meets the necessary Home Health requirements. The face to face encounter occurred on (date): 12/25/2023 The encounter with the patient was in whole, or in part, for the following medical condition, whichis the primary reason for home health care. (List medical condition): ESRD on dialysis, Altered mental status , uncontrolled HTN I certify that, based on my findings, the following services are medically necessary skilled home health services: Therapy to Eval/Tx Clinical findings that support the need for home care: Medical condition requiring skilled assessment/education I certify that my clinical findings support patient's homebound status. Homebound criteria met because: Requires assistance of another to leave home safely Referral Status: Pending Authorization [facility] Home Care Services Specialty: Home Health and Hospice [address] [facility] [address] Next Steps: Follow up Questions: Service Line: Home Health Primary disciplines requested: Prison Physical Therapy Secondary disciplines requested: Occupational Therapy Home Health Services: Disease and Medication Management Therapy to Eval/Tx Therapy instructions: Evaluation/treatment Requested [...] face to face encounter occurred on (date): 12/25/2023 The encounter with the patient was in whole, or in part, for the following medical condition, whichis the primary reason for home health care. (List medical condition): came with altered mental status, ESRD on dialysis, uncontrolled HTN, gait instability I certify that, based on my findings, the following services are medically necessary skilled home health services: Therapy to Eval/Tx Clinical findings that support the need for home care: Medical condition requiring skilled assessment/education I certify that my clinical findings support patient's homebound status. Homebound criteria met because: Requires assistance of another to leave home safely Referral Status: Pending Authorization Please schedule an appointment with the following provider(s): Cherelle Corcoran MD [address] [place] [id number] Follow up in 1 week(s) [facility] Home Care Services [address] [id number] [facility] Home Care Services [address] [facility] [address] ANCILLARY INFORMATION Other Procedures & Diagnostic Tests: CT Chest Abdomen Pelvis WO Contrast Result Date: 12/19/2023 EXAM DESCRIPTION: CT CHEST ABDOMEN PELVIS WO CONTRAST REASON FOR STUDY: Sepsis evaluation of unresponsiveness. She has a known history of end-stage renal disease on dialysis and was having dialysis today during the session it is reported she had an episode of unresponsiveness for 60 90 seconds. David has a known history diabetes, neuropathy, hypertension, schizoaffective disorder bipolar type,parkinsonism and movement disorder. She follows with Nephrology Dr. Ryan. She was seen in our facility on the diagnosed with urinary tract infection and started on antibiotics. She was sent on that day after an episode of diaphoresis during dialysis. TECHNIQUE: CT scan of the chest, abdomen, and pelvis performed without intravenous and without oral contrast using helical scanning technique. Reconstructed coronal and sagittal MPR images reviewed. All images stored on PACS. Automated exposure control was used as a dose optimization technique for this examination. COMPARISON: 12/03/2023 FINDINGS: LUNGS: Clear. Trachea and major airways are patent. HEART/MEDIASTINUM/[place]: Heart size normal. Coronary artery calcifications. No enlarged lymph node. Thoracic inlet unremarkable. CHEST MSK: Lower cervical disc disease. Thoracic discs are well preserved. Oeyl-vs-liyzpwhu shoulder arthritis. CHEST WALL: Unremarkable. LIVER/BILIARY: Liver unremarkable. Biliary tree normal in caliber. GALLBLADDER: Normal. SPLEEN: Normal. PANCREAS: Normal. ADRENAL GLANDS: Normal. KIDNEYS/URINARY TRACT: Unremarkable. GI: Stomach and small bowel appear normal. Moderate stool in the ascending and transverse colon. Appendix not seen. OTHER ABDOMINAL/PELVIS: Major vascular structures normal in caliber. No enlarged lymph node or free fluid. No enlarged lymph node or free fluid. MSK: Mild disc disease and facet arthropathy. BODY WALL: Unremarkable. IMPRESSION: No acute abnormality identified. THIS IS AN ELECTRONICALLY VERIFIED FINAL REPORT 12/19/2023 5:04 PM - Electronically signed by Mir Brooke M.D. AR: KATHARINE Report ID: [id number] Reading Location: [id number] XR Chest 1 Vw Portable Result Date: 12/19/2023 EXAM DESCRIPTION: XR CHEST 1 VIEW REASON FOR STUDY: Episode of unresponsiveness edematous at dialysis today. TECHNIQUE: Frontal radiographic view(s) of the chest. COMPARISON: Chest radiograph 12/03/2023; CT chest without contrast 12/03/2023. FINDINGS: LUNGS: No focal consolidation. No pleural effusion. No pneumothorax. HEART/MEDIASTINUM: Stable cardiomediastinal silhouette better evaluated on recent CT imaging. LINES/TUBES: Stable positioning of right chest dialysis catheter. BONES: No acute osseous abnormality. IMPRESSION: No acute cardiopulmonary process. THIS IS AN ELECTRONICALLY VERIFIED FINAL REPORT 12/19/2023 3:28 PM - Electronically signed by Redd Hendrickson M.D. CHANDA: CHANDA Report ID: [id number] Reading Location: [id number] CT Head WO Contrast Result Date: 12/19/2023 EXAM DESCRIPTION: CT HEAD WO CONTRAST REASON FOR STUDY: Episode, lasting 1-1.5 minutes, of unresponsive while at dialysis today hen resolved with pt return to baseline mental status of Ax1 with hyperglycemia (EMS blood glucose 254). No provided history of trauma or inciting and/or aggravating events, though history of seizures. No provided surgical history. TECHNIQUE: Axial images acquired through the brain without intravenous contrast. Images stored on PACS. Automated exposure control was usedas a dose optimization technique for this examination. COMPARISON: CT head without contrast 12/03/2023 and 11/17/2023; MRI brain without contrast 10/30/2023. FINDINGS: BRAIN: No acute intra-axial hemorrhage. No edema, mass effect, midline shift, or herniation. No evidence of acute territorial ischemia or infarct. There is periventricular-subcortical hypoattenuating white matter disease, nonspecific, though likely secondary to chronic microvascular ischemia. EXTRA-AXIAL SPACES: No extra-axial fluid collections. No unenhanced CT evidence of extra-axial mass. There is mild cerebral volume loss. There is intracranial calcific atherosclerotic disease. CALVARIUM: No acute calvarial fracture. SINUSES/MASTOIDS: No significant mucosal thickening and no fluid levels of the paranasal sinuses. Fluid about the ulbiy-johavwl-ixdn-left dependent mastoid air cells. ORBITS: No acute abnormality. [place] ocular lenses replaced bilaterally. OTHER: No other significant abnormality. IMPRESSION: No acute intracranial process with chronic findings as above. THIS IS AN ELECTRONICALLY VERIFIED FINAL REPORT 12/19/2023 3:27 PM - Electronically signed by Redd Hendrikcson M.D. CHANDA: CHANDA Report ID: [id number] Reading Location: [id number] Recent Labs: Recent Labs Lab Units 12/25/23 0551 12/24/23 0716 12/23/23 0909 WBC K/cumm 10.0* 11.5* 11.4* HEMOGLOBIN g/dL 8.4* 9.1* 9.9* HEMATOCRIT % 26.2* 27.9* 30.2* PLATELETS K/cumm 244 263 240 Recent Labs Lab Units 12/25/23 0551 12/24/23 0716 12/23/23 0909 WBC K/cumm 10.0* 11.5* 11.4* HEMOGLOBIN g/dL 8.4* 9.1* 9.9* HEMATOCRIT % 26.2* 27.9* 30.2* PLATELETS K/cumm 244 263 240 NEUTROS PCT % 53.5 67.6 70.8 LYMPHS PCT % 35.3 22.7 19.2 MONOS PCT % 8.5 7.0 8.2 EOS PCT % 2.3 2.3 1.3 Recent Labs Lab Units 12/25/23 0813 12/25/23 0551 12/24/23 0827 12/24/23 0716 12/23/23 1256 12/23/23 0909 12/19/23 2107 12/19/23 1429 SODIUM mmol/L -- 135 -- 137 -- 140 < > 141 POTASSIUM PLASMA mmol/L -- 3.9 -- 4.3 -- 4.2 < > 4.2 CHLORIDE mmol/L -- 96* -- 99 -- 101 < > 103 CO2 mmol/L -- 26 -- 26 -- 25 < > 22 BUN SERUM mg/dL -- 30* -- 46* -- 30* < > 45* CREATININE mg/dL -- 3.10* -- 3.70* -- 2.80* < > 3.50* ROL-ENM-BSGBHJL mL/min/1.73 m2 -- 15* -- 12* -- 17* < > 13* GLUCOSE mg/dL -- 122 -- 133 -- 114 < > 186 POC GLUCOSE MONITOR mg/dL 137 -- < > -- < > -- < > -- CALCIUM mg/dL -- 8.3* -- 8.5 -- 8.9 < > 9.6 ALBUMIN g/dL -- -- -- -- -- -- -- 3.8 < > = values in this interval not displayed. Recent Labs Lab Units 12/25/23 0813 12/25/23 0551 12/24/23 2049 12/24/23 0827 12/24/23 0716 12/23/23 1256 12/23/23 0909 12/19/23 2107 12/19/23 1429 SODIUM mmol/L -- 135 -- -- 137 -- 140 < > 141 POTASSIUM PLASMA mmol/L -- 3.9 -- -- 4.3 -- 4.2 < > 4.2 CHLORIDE mmol/L -- 96* -- -- 99 -- 101 < > 103 CO2 mmol/L -- 26 -- -- 26 -- 25 < > 22 ANIONGAP mmol/L -- 13 -- -- 12 -- 14 < > 16* GLUCOSE mg/dL -- 122 -- -- 133 -- 114 < > 186 POC GLUCOSE MONITOR mg/dL 137 -- 163 < > -- < > -- < > -- BUN SERUM mg/dL -- 30* -- -- 46* -- 30* < > 45* CREATININE mg/dL -- 3.10* -- -- 3.70* -- 2.80* < > 3.50* CALCIUM mg/dL -- 8.3* -- -- 8.5 -- 8.9 < > 9.6 ALBUMIN g/dL -- -- -- -- -- -- -- -- 3.8 ALK PHOS Units/L -- -- -- -- -- -- -- -- 127 ALT Units/L -- -- -- -- -- -- -- -- 8 AST Units/L -- -- -- -- -- -- -- -- 12 BILIRUBIN TOTAL mg/dL -- -- -- -- -- -- -- -- 0.2 < > = values in this interval not displayed. 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: [employer] Lot number: [id number] As of 10/15/2023 Status: Implanted General Precautions (If Blank, None Found): Isolation Status: No active isolations Nutritional Status and in-house recommendations: Dietary Orders (From admission, onward) Start Ordered 12/23/23 1434 Adult Diet Restricted; Mechanical Soft; 4 CHO/Meal; Yes, patient is receiving insulin; Renal Dialysis; 90 Grams (Pro); 1 Gram (Phos); 2 Grams (K+); 2 Grams (Na) Diet effective now Question Answer Comment (MHB/MHE) Diet type Restricted Modified Consistency: Mechanical Soft Diabetic: 4 CHO/Meal Patient receiving insulin: Yes, patient is receiving insulin Renal: Renal Dialysis Protein: 90 Grams (Pro) Phosphorus: 1 Gram (Phos) Potassium: 2 Grams (K+) Sodium: 2 Grams (Na) 12/23/23 1433 12/19/23 2100 Bedtime snack At bedtime Comments: If bedtime BG is less than 100mg/dl, give patient a 15 gram carbohydrate snack. 12/19/23 1750 Anticoagulation Indication: INR: No results found for requested labs within last 30 days. Warfarin Administrations (last 168 hours) None Oxygen Status: O2 Therapy for the past 12 hrs: O2 Therapy 12/25/23 0808 None (Room air) 12/25/23 0600 None (Room air) Wound Care Instructions Other Instructions Ambulatory referral to Home Health Service Line: Home Health Primary disciplines requested: Physical Therapy Secondary disciplines requested: Occupational Therapy Home Health Services: Therapy to Eval/Tx Therapy instructions: Evaluation/treatment Requested Start of Care Date: Other Comment: SOC date 12/28/23 Physician to follow patient's care (the person listed here will be responsible for signing ongoing orders): PCP I attest that I or another qualified licensed provider saw the patient 90 days prior to or 30 days post admission and this face to face encounter meets the necessary Home Health requirements. The face to face encounter occurred on (date): 12/25/2023 The encounter with the patient was in whole, or in part, for the following medical condition, whichis the primary reason for home health care. (List medical condition): ESRD on dialysis, Altered mental status , uncontrolled HTN I certify that, based on my findings, the following services are medically necessary skilled home health services: Therapy to Eval/Tx Clinical findings that support the need for home care: Medical condition requiring skilled assessment/education I certify that my clinical findings support patient's homebound status. Homebound criteria met because: Requires assistance of another to leave home safely Ambulatory referral to Home Health Service Line: Home Health Primary disciplines requested: Prison Physical Therapy Secondary disciplines requested: Occupational Therapy Home Health Services: Disease and Medication Management Therapy to Eval/Tx Therapy instructions: Evaluation/treatment Requested [...] face to face encounter occurred on (date): 12/25/2023 The encounter with the patient was in whole, or in part, for the following medical condition, whichis the primary reason for home health care. (List medical condition): came with altered mental status, ESRD on dialysis, uncontrolled HTN, gait instability I certify that, based on my findings, the following services are medically necessary skilled home health services: Therapy to Eval/Tx Clinical findings that support the need for home care: Medical condition requiring skilled assessment/education I certify that my clinical findings support patient's homebound status. Homebound criteria met because: Requires assistance of another to leave home safely Active LDAs (If Blank, None Found): Patient Emergency Contact: Primary Emergency Contact: Areli Gayle, Bandar Immunization Status at Discharge Immunization History Administered Date(s) Administered Influenza Nasal, Unspecified 04/17/2017 Influenza, Quadrivalent, High Dose, Preservative Free, Intrr 04/02/2020, 03/07/2021, 04/01/2022, 08/07/2022 Influenza, Trivalent, Adjuvanted, Intramuscular 04/06/2019 Influenza, Trivalent, Intramuscular 04/17/2017 Pfizer SARS-CoV-2 Monovalent Vaccination (12+ Yrs) PURPLE 09/22/2020, 10/13/2020, 06/11/2021 Pneumococcal Conjugate PCV 13 03/31/2017 Pneumococcal Polysaccharide PPV23 01/20/2019 Chavez Hartman MD documented in this encounter Discharge Instructions * Attachments The following attachments cannot be sent through Care Everywhere. * Syncope (Discharge Care) (Azeri) documented in this encounter Medications at Time [...] as needed for rhinitis FreeStyle Madhav 3 Douglas misc Use Madhav 3 reader to scan [...] (Constipation) 595 g 10/22/2023 aspirin 81 mg enteric coated tablet Take [...] by mouth nightly 30 tablet 12/25/2023 4 documented as of this encounter Ordered Prescriptions Prescription Sig Dispense Quantity Refills Last Filled Start Date End Date NIFEdipine (PROCARDIA XL/ADALAT CC) 60 mg 24 hr tablet Take 1 tablet (60 mg total) by mouth daily 30 tablet 12/25/2023 4 hydrALAZINE (APRESOLINE) 25 mg tabletIndications: hypertension Take 1 tablet (25 mg total) by mouth 3 (three) times a day 90 tablet 12/25/2023 4 risperiDONE (RisperDAL) 2 mg tablet Take 1 tablet (2 mg total) by mouth nightly 30 tablet 12/25/2023 4 benztropine (COGENTIN) 2 mg tablet Take 1 tablet (2 mg total) by mouth daily 30 tablet 12/25/2023 4 documented in this encounter Discharge Disposition Disposition Code Departure Means Destination Discharge to home, home health skilled care documented in this encounter Progress Notes * Chavez Hartman MD - 12/26/2023 12:34 PM CDT Images from the original note were not included. General Medicine Daily Progress SUBJECTIVE 12/22/2023 I have seen and examined the patient today. Patient was very lethargic. Having dialysis now. Blood pressure is high. 12/23/23 I have seen and examined the patient today. Patient was more awake and alert today. Had dialysis yesterday. Blood pressure is still very high 12/24/2023 I have seen and examined the patient today. Patient was more alert and answering questions. Awake and oriented x1 12/26/2023 I have seen and examined the patient today. Patient was alert and awake. Likely is her baseline. Blood pressure is well controlled. having dialysis now. Yesterday afternoon patient had a episode of vomiting and after that her blood pressure dropped to 70s. It went back up to 110 without and IV fluid. Patient received 250 mL of IV bolus. And hypotension resolved OBJECTIVE Vitals: 24hr Min/Max: Temp Min: 36.3 ??C (97.3 ??F) Max: 37.3 ??C (99.1 ??F) Pulse Min: 69 Max: 84 BP Min: 72/44 Max: 150/57 Resp Min: 12 Max: 18 SpO2 Min: 94 % Max: 100 % Most Recent : Vitals: 12/26/23 1146 BP: 148/59 Pulse: 73 Resp: 16 Temp: 37.1 ??C (98.8 ??F) SpO2: No intake/output data recorded. I/O this shift: In: 750 [I.V.:250; Other:500] Out: 1500 [Other:1500] Physical Exam: General appearance: Not in acute distress, lying in the bed having dialysis. Eyes: EOMI, SB, sclare non icteric Neck: supple, Lungs : Diminished breath sounds. Heart: [id number], no significant murmur or gallop Abd: +BS, Non Tender, Non distended, No gross hepatomegaly Lower Ext: No gross edema, pedal artery pulses are palpable bilaterally Neuro: Patient was weak appropriately. Lactate this is her baseline Musculoskeletal: no gross joint erythema, edema, tenderness Skin: No new change Lab/Current Medication Review: reviewed Recent Results (from the past 24 hour(s)) POCT glucose Collection Time: 12/25/23 3:15 PM Result Value Ref Range Glucose, POC 149 70 - 199 mg/dL Glucose comment 1 RN/MD Notified CBC with auto differential Collection Time: 12/25/23 3:18 PM Result Value Ref Range WBC 11.6 (H) 3.8 - 9.9 K/cumm Hgb 9.3 (L) 11.9 - 15.5 g/dL Hct 27.7 (L) 35.6 - 45.5 % Plt 280 150 - 400 K/cumm MPV 10.3 9.1 - 12.3 fL RBC 2.93 (L) 3.90 - 5.20 M/cumm MCV 94.5 81.3 - 96.4 fL MCH 31.7 27.1 - 33.3 pg MCHC 33.6 32.3 - 35.7 g/dL RDW CV 14.2 11.1 - 14.9 % RDW SD 47.5 35.7 - 48.1 fL NRBC abs 0.00 0.00 - 0.01 K/cumm Troponin T high-sensitivity series (baseline, 2hr, 4hr, 6hr) Collection Time: 12/25/23 3:18 PM Result Value Ref Range Trop T hs 44 (H) <=14 ng/L Comprehensive metabolic panel Collection Time: 12/25/23 3:18 PM Result Value Ref Range Sodium 134 (L) 135 - 145 mmol/L Potassium, pl 4.7 3.3 - 4.9 mmol/L Chloride 93 (L) 97 - 110 mmol/L CO2 26 22 - 32 mmol/L Anion gap 15 2 - 15 mmol/L BUN 37 (H) 6 - 25 mg/dL Creatinine 3.70 (H) 0.60 - 1.10 mg/dL Glucose 153 70 - 199 mg/dL Calcium 9.0 8.5 - 10.3 mg/dL Bilirubin, total <0.2 0.1 - 1.2 mg/dL Protein, pl 7.3 6.5 - 8.5 g/dL Albumin 4.0 3.5 - 5.0 g/dL Alk phos 101 40 - 130 Units/L ALT 17 7 - 45 Units/L AST 23 10 - 45 Units/L Lactate Collection Time: 12/25/23 3:18 PM Result Value Ref Range Lactate 1.9 0.7 - 2.0 mmol/L Differential, auto Collection Time: 12/25/23 3:18 PM Result Value Ref Range Neutrophil abs 8.1 (H) 1.5 - 6.5 K/cumm Imm gran abs 0.1 0.0 - 0.1 K/cumm Lymphocyte abs 2.6 0.8 - 3.3 K/cumm Monocyte abs 0.7 0.2 - 0.8 K/cumm Eosinophil abs 0.1 0.0 - 0.5 K/cumm Basophil abs 0.0 0.0 - 0.1 K/cumm Neutrophil pct 70.3 % Imm gran pct 0.5 % Lymphocyte pct 22.3 % Monocyte pct 5.7 % Eosinophil pct 1.0 % Basophil pct 0.2 % eGFR Collection Time: 12/25/23 3:18 PM Result Value Ref Range eGFR 12 (L) >=60 mL/min/1.73 m2 POCT glucose Collection Time: 12/25/23 4:22 PM Result Value Ref Range Glucose, POC 151 70 - 199 mg/dL Troponin T high-sensitivity 2-hour Collection Time: 12/25/23 5:23 PM Result Value Ref Range Trop T hs 42 (H) <=14 ng/L Trop T hs delta -2 ng/L Trop T hs interp Insignificant POCT glucose Collection Time: 12/25/23 8:20 PM Result Value Ref Range Glucose, POC 154 70 - 199 mg/dL Glucose comment 1 Use This Result Troponin T high-sensitivity 4-hour Collection Time: 12/25/23 8:27 PM Result Value Ref Range Trop T hs 41 (H) <=14 ng/L Trop T hs delta See Comment ng/L Trop T hs pct delta See Comment % Trop T hs interp See Comment Troponin T high-sensitivity 6-hour Collection Time: 12/25/23 10:28 PM Result Value Ref Range Trop T hs 42 (H) <=14 ng/L Trop T hs delta See Comment ng/L Trop T hs pct delta See Comment % Trop T hs interp See Comment Basic metabolic panel Collection Time: 12/26/23 4:16 AM Result Value Ref Range Sodium 136 135 - 145 mmol/L Potassium, pl 4.2 3.3 - 4.9 mmol/L Chloride 99 97 - 110 mmol/L CO2 26 22 - 32 mmol/L Anion gap 11 2 - 15 mmol/L BUN 43 (H) 6 - 25 mg/dL Creatinine 4.40 (H) 0.60 - 1.10 mg/dL Glucose 80 70 - 199 mg/dL Calcium 8.5 8.5 - 10.3 mg/dL CBC with auto differential Collection Time: 12/26/23 4:16 AM Result Value Ref Range WBC 14.2 (H) 3.8 - 9.9 K/cumm Hgb 8.7 (L) 11.9 - 15.5 g/dL Hct 26.9 (L) 35.6 - 45.5 % Plt 277 150 - 400 K/cumm MPV 10.2 9.1 - 12.3 fL RBC 2.82 (L) 3.90 - 5.20 M/cumm MCV 95.4 81.3 - 96.4 fL MCH 30.9 27.1 - 33.3 pg MCHC 32.3 32.3 - 35.7 g/dL RDW CV 14.2 11.1 - 14.9 % RDW SD 47.7 35.7 - 48.1 fL NRBC abs 0.00 0.00 - 0.01 K/cumm Differential, auto Collection Time: 12/26/23 4:16 AM Result Value Ref Range Neutrophil abs 10.0 (H) 1.5 - 6.5 K/cumm Imm gran abs 0.1 0.0 - 0.1 K/cumm Lymphocyte abs 2.9 0.8 - 3.3 K/cumm Monocyte abs 1.1 (H) 0.2 - 0.8 K/cumm Eosinophil abs 0.1 0.0 - 0.5 K/cumm Basophil abs 0.0 0.0 - 0.1 K/cumm Neutrophil pct 70.6 % Imm gran pct 0.4 % Lymphocyte pct 20.1 % Monocyte pct 8.0 % Eosinophil pct 0.8 % Basophil pct 0.1 % eGFR Collection Time: 12/26/23 4:16 AM Result Value Ref Range eGFR 10 (L) >=60 mL/min/1.73 m2 POCT glucose Collection Time: 12/26/23 5:25 AM Result Value Ref Range Glucose, POC 82 70 - 199 mg/dL Glucose comment 1 Use This Result POCT glucose Collection Time: 12/26/23 8:32 AM Result Value Ref Range Glucose, POC 86 70 - 199 mg/dL Glucose comment 1 Use This Result Imaging Current Facility-Administered Medications Medication Dose Route Frequency Provider Last Rate Last Admin acetaminophen (TYLENOL) tablet 975 mg 975 mg oral Q6H PRN Chavez Hartman MD aspirin enteric coated tablet 81 mg 81 mg oral Daily Julieta Helms PA 81 mg at 12/26/23 1000 atorvastatin (LIPITOR) tablet 40 mg 40 mg oral Nightly Julieta Helms PA 40 mg at 12/25/232032 benztropine (COGENTIN) tablet 1 mg 1 mg oral Nightly Julieta Helms PA 1 mg at 12/25/232037 benztropine (COGENTIN) tablet 2 mg 2 mg oral Daily Julieta Helms PA 2 mg at 12/26/23 1000 calcium acetate(phosphat bind) (PHOSLO) capsule 667 mg 667 mg oral TID with meals Julieta Helms PA 667 mg at 12/26/23 1000 Carrier Fluids for Secondary Infusion - 0.9% Sodium Chloride 30 mL intravenous PRN Julieta Helms PA 30 mL at 12/25/23 1517 carvediloL (COREG) tablet 3.125 mg 3.125 mg oral BID with meals (bkfst, dinner) Julieta Helms PA 3.125 mg at 12/25/23 0934 cyclobenzaprine (FLEXERIL) tablet 5 mg 5 mg oral TID PRN Chavez Hartman MD 5 mg at 12/25/23 1649 darbepoetin isaiah (ARANESP) 40 mcg/mL injection 40 mcg 40 mcg intravenous Weekly - 2099 Tucker Pitts MD 40 mcg at 12/20/23 2130 dextrose (GLUTOSE) 40 % gel 15 g 15 g oral Q15 Min PRN Julieta Helms PA Or dextrose (D10W) 10% bolus 250 mL 250 mL intravenous Q15 Min PRN Julieta Helms PA docusate sodium (COLACE) capsule 100 mg 100 mg oral BID PRN Julieta Helms PA 100 mg at 131 famotidine (PEPCID) tablet 10 mg 10 mg oral Daily Julieta Helms PA 10 mg at 12/26/23 1000 ferrous sulfate tablet 325 mg 65 mg of elemental iron oral BID with meals (bkfst, dinner) Julieta Helms PA 325 mg at 12/26/23 1000 fluticasone propionate (FLONASE) 50 mcg/actuation nasal spray 2 spray 2 spray each nostril Daily Julieta Helms PA 2 spray at 12/26/23 1000 glucagon injection 1 mg 1 mg intramuscular Q30 Min PRN Julieta Helms PA heparin 5,000 unit/mL injection 5,000 Units 5,000 Units subcutaneous Q8H [facility] Julieta Helms PA 5,000 Units at 12/26/23 0727 hydrALAZINE (APRESOLINE) injection 10 mg 10 mg intravenous Q4H PRN Chavez Hartman MD hydrALAZINE (APRESOLINE) tablet 25 mg 25 mg oral TID Audie Spencer MD 25 mg at 12/25/232033 HYDROcodone-acetaminophen (NORCO) 5-325 mg per tablet 1 tablet 1 tablet oral Q4H PRN Audie Spencer MD 1 tablet at 12/26/23 1049 insulin glargine (LANTUS, SEMGLEE) 100 unit/mL injection 15 Units 15 Units subcutaneous Nightly Julieta Helms PA 15 Units at 12/25/232032 insulin lispro (HumaLOG, ADMELOG) 100 unit/mL injection 4 Units 4 Units subcutaneous TID AC Julieta Helms PA 4 Units at 12/25/23 165 lidocaine (LIDODERM) 5 % patch 3 patch 3 patch transdermal Q24H Julieta Helms PA 3 patch at 12/25/232031 NIFEdipine (PROCARDIA XL/ADALAT CC) extended release tablet 60 mg 60 mg oral Daily Audie Spencer MD 60 mg at 12/25/23 0934 ondansetron ODT (ZOFRAN-ODT) disintegrating tablet 4 mg 4 mg oral Q6H PRN Julieta Helms PA 4 mgat 12/25/23 1454 Or ondansetron (ZOFRAN) injection 4 mg 4 mg intravenous Q6H PRN Julieta Helms PA polyethylene glycol (MIRALAX) packet 17 g 17 g oral Daily PRN Julieta Helms PA ramelteon (ROZEREM) tablet 8 mg 8 mg oral Nightly PRN Julieta Helms PA 8 mg at 12/23/232038 risperiDONE (RisperDAL) tablet 2 mg 2 mg oral Nightly Julieta Helms PA 2 mg at 12/25/232033 sodium chloride 0.9% flush 0.5-20 mL 0.5-20 mL intra-catheter Q8H SOL Julieta Helms PA 10 mL at12/26/23 07 sodium chloride 0.9% flush 0.5-20 mL 0.5-20 mL intra-catheter PRN Julieta Helms PA traMADoL (ULTRAM) tablet 50 mg 50 mg oral Q8H PRN Julieta Helms PA 50 mg at 12/23/23 0642 A/P: Principal Problem: Syncope, unspecified syncope type Active Problems: Type 2 diabetes mellitus with diabetic neuropathy, with long-term current use of insulin ([facility]) Primary hypertension Gastroesophageal reflux disease without esophagitis Schizoaffective disorder, bipolar type (CMS/HCC) (HCC) Parkinsonism (HCC) Anemia in chronic kidney disease, on chronic dialysis (HCC) ESRD on hemodialysis (CMS/HCC) ([facility]) Pain in left arm Leukocytosis ESRD on dialysis (HCC) Anemia of renal disease Resolved Problems: No resolved hospital problems. Assessment and plan 12/22/2023 Syncopal episode and collapse. Neurology is following. Patient refused EEG. 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 Patient had history of recent stroke. Neurology recommended EEG but patient refused. Patient is still very lethargic today. 2. Uncontrolled hypertension. Patient blood pressure dropped yesterday during dialysis. It went down to 70s. This morning again blood pressure is very high. Patient was on nifedipine. Coreg hydralazine. Continue that for now. Will check blood pressure again after dialysis. 3. End-stage renal disease on hemodialysis. Nephrology is following. Patient will have dialysis today. 4. Anemia of chronic disease. Hemoglobin is stable. Patient is on darbepoetin. Hemoglobin is 8.8. 5. Hyperkalemia resolved same is 4.5. Patient was having dialysis today Assessment and plan 12/23/2023 1. Syncopal episode and collapse with acute encephalopathy. but she is more awake and alert today. Improving. Patient did not have dialysis today. Could be related to dialysis induced hypotension. Will hold antihypertensive before dialysis. EEG showed diffuse cerebral dysfunction likely encephalopathy not suggestive of seizure 2. Uncontrolled hypertension. Blood pressure was again high this afternoon. I will give extra dose of nifedipine. Continue her other home medication for now. Will try to avoid hypotension. Will closely monitor blood pressure and will give hydralazine IV if systolic blood pressure goes above 180. 3. End-stage renal disease on hemodialysis nephrology is following. Plan for dialysis tomorrow 4. Anemia of chronic disease. Hemoglobin is stable. 5. Hyperkalemia: Resolved. Potassium is 4.2. Assessment and plan 12/24/2023 1. Syncopal episode and collapse with acute encephalopathy. Patient is more awake and alert today. I think this is her baseline. Patient had dialysis this morning. Tolerated better but again became hypotensive during the procedure and to receive albumin. Now blood pressure is better. Nephrology is okay for discharge 2. Generalized weakness. PT OT is following. Patient had not been worked for several days because of the mental status. 3. Uncontrolled hypertension. Blood pressure was better controlled. But blood pressure drops duringdialysis. I think patient might benefit to hold antihypertensive on dialysis days before dialysis. She should take her medicine after dialysis. I gave a dose of nifedipine yesterday. 4. Anemia of chronic disease from chronic kidney disease. Hemoglobin is stable. Assessment and plan 12/26/2023 1. Syncopal episode and collapse with acute encephalopathy improved liberated to her dialysis. Patient became hypotensive during her dialysis session well patient was here in the hospital. EEG showedno seizure activity. I recommended to hold blood pressure medication in the morning of dialysis days and patient should received antihypertensive after dialysis Today after dialysis blood pressure is still soft. Will hold medicine for now recheck in 2 hours. 2. Patient is awake alert. After dialysis. Improving. Generalized weakness is improving. PT OT is working. 3. Uncontrolled hypertension: Blood pressure is soft after dialysis. Will hold antihypertensive fornow and if blood pressure starts trending up will restart medicine. I think that patient was blood pressure frequently drops during dialysis we will advise them to hold the antihypertensive from dialysis to recheck blood pressure if above 130s. Patient can not have his regular blood pressure medication. 4. Hypotension. Resolved yesterday it was from bed response from vomiting. Received IV fluid 4. Anemia of CKD hemoglobin stable. Plan to discharge patient home if blood pressure is stable DVT prophylaxis: Heparin PT/OT: following Case discussed with Case Management and Safety Teacher Medical complexity/risk: low I will observe patient overnight as patient blood pressure dropped during dialysis. If patient doeswell and blood pressure is better controlled plan to discharge patient home with home health today My total encounter time on 12/26/2023 was 25 minutes which was spent in the activities documented in the note. This includes time spent prior to the visit and after the visit in direct care of the patient. This time does not include time spent in any separately reportable services. Voice recognition software [employer] may have been used dictate and transcribe this document. Talk Show Host variances may occur. Despite proofreading, typographical errors may occur. Chavez Hartman MD 12/26/2023 12:34 PM * Markie Ryan MD - 12/26/2023 11:43 AM CDT Nephrology Daily Progress Subjective Reason for follow up ESRD. Interval History: Patient completing hemodialysis session at present in no acute distress Objective Vitals: 24hr Min/Max: Temp Min: 36.3 ??C (97.3 ??F) Max: 37.3 ??C (99.1 ??F) Pulse Min: 61 Max: 84 BP Min: 72/44 Max: 150/57 Resp Min: 12 Max: 18 SpO2 Min: 94 % Max: 100 % Most Recent: Vitals: 12/26/23 1000 BP: 121/63 Pulse: 81 Resp: Temp: SpO2: Physical Exam: Constitutional: In no acute distress Head: Normocephalic [...] dry. Psychiatric: Normal mood and affect. Assessment/Plan Principal Problem: Syncope, unspecified syncope type Active Problems: Type 2 diabetes mellitus with diabetic neuropathy, with long-term current use of insulin (HCC) Primary hypertension Gastroesophageal reflux disease without esophagitis Schizoaffective disorder, bipolar type (CMS/HCC) (HCC) Parkinsonism (HCC) Anemia in chronic kidney disease, on chronic dialysis (HCC) ESRD on hemodialysis (CMS/HCC) (HCC) Pain in left arm Leukocytosis ESRD on dialysis (HCC) Anemia of renal disease Completing hemodialysis session at this time. Remains hemodynamically stable in no distress. History of severe hypertension but quite sensitive to hemodynamic changes during dialysis. Underlying dementia and has been started on hemodialysis when hospitalized elsewhere. May not tolerate this modality well given other medical conditions which I have discussed with her daughter. Continue for now andwill have ongoing discussions pending clinical course. If stable for discharge today fine from my standpoint * Linh Mulligan PTA - 12/26/2023 10:20 AM CDT Physical Therapy 12/26/23 1020 PT Last Visit PT Missed Visit Reason With other staff/receiving another service (dialysis at bedside) * Rivka Wilson - 12/25/2023 4:16 PM CDT Spiritual Care Note Rivka ButterfieldElida Reason for visit: CAT call. Pt shared she was feeling well. She did not desire prayer. Assisted pt with checking to see if mealorder had been placed. 12/25/23 1600 Time Spent Start Time 1546 Stop Time 1556 Time Calculation (min) 10 min Patient Spiritual Assessment Spirituality Assessed Yes Episcopalian Affiliation Mormon Active in Scientology Yes Clinical Encounter Type Visited With Patient Advance Directives (For Healthcare) Advance Directive Patient does not have advance directive Interventions Interventions Offer emotional support * Xenia Slade LCSW - 12/25/2023 2:52 PM CDT Dc today. SW faxed AVS to [facility] dialysis ([phone]), pt to resume at pa. Xenia Slade LCSW [phone] 12/25/2023 2:52 PM * Wilner Kruse PTA - 12/25/2023 9:16 AM CDT Physical Therapy 12/25/23 0916 PT Last Visit Session Type Treatment PT Received On 12/25/23 Safe Environment Patient found in supine;Arm band checked;Gait belt utilized for all out of bed mobility;Session completed bedside Subjective Agreeable to Therapy Family/Caregiver Present No Precautions Precautions Bed/Chair Alarm;Fall risk Pain Assessment Pain Assessment 0-10 Pain Score 8 Pain Type Acute pain Pain Location Shoulder Pain Orientation Left Pain Descriptors Sore Cognition Arousal/Alertness Alert Orientation Oriented to person;Oriented to place Following Commands Follows one step commands with repetition Bed Mobility 1 Bed Mobility From 1 Supine;Rolling right Bed Mobility Type 1 To Bed Mobility to 1 Edge of bed Level of Assistance 1 Standby Assist;Minimal verbal cues Bed Mobility Comments 1 Pt performed good bed mobility transfer technique. Transfer 1 Transfer From 1 Sit Transfer Type 1 To and from Transfer to 1 Stand Technique 1 Sit to stand;Stand to sit Transfer Device 1 Wheeled walker Transfer Level of Assistance 1 Minimum Assist;Minimal verbal cues Ambulation Functional Ambulation Category 2 Ambulation Yes Ambulation 1 Distance (ft) 1 120 Surface 1 Level tile Device 1 Wheeled walker Other Apparatus 1 Wheelchair follow Assistance 1 Minimum Assist;Minimal verbal cues Gait: Requires assist with 1 Maintaining balance Gait: Requires verbal cues to 1 Improve upright posture;Pace activity Gait Deviations 1 (S) (None noted this date.) Quality of Gait 1 Good Ambulation Comments 1 Pt ambulated well w/FWW. No LOB or path deviations noted this date. Safe Environment End of Therapy Session Safe Environment End of Therapy Session Patient left in recliner;Chair alarm in place and activated;RN notified;Call light within reach;Overbed table within reach Recommendation/Plan PT Recommendation/Plan (S) Home with family;Home Health PT;Home Health OT Patient at high risk for Falls Progress during current admission Progressing toward goals Time Calculation Start Time 0916 Stop Time 0928 Time Calculation (min) 12 min Multi-Disciplinary Problems (from Physical Therapy) Active Problems Problem: PT [facility] Start Date: 12/20/23 Goal Start Date Expected End Date End Date PT LT - [facility] 5 12/20/23 01/03/24 -- Goal Details: Patient to ambulate 100 feet with wheeled walker and CGA or less. Progressing. Goal Start Date Expected End Date End Date PT [facility] - [facility] 1 12/20/23 01/03/24 -- Goal Details: Patient to be independent with sit to stand transfer with wheeled walker. Progressing. Goal Start Date Expected End Date End Date PT [facility] - [facility] 2 12/20/23 01/03/24 -- Goal Details: Patient to be independent with all bed mobility. Progressing. Pole Peeling Machine Operator Helper Services Utilized: NO Educated the patient to the role of physical therapy, plan of care, goals of therapy, rationale forprogressing mobility. Patient was left with all needs met and equipment intact. Mobility and ADL status posted at bedsideand within medical record. * Erica MarquezABDOULAYEA - 12/25/2023 8:14 AM CDT Occupational Therapy 12/25/23 0814 General Session Type Treatment OT Received On 12/25/23 Safe Environment Arm band checked;Patient found in supine;Session completed bedside;Gait belt utilized for all out of bed mobility Subjective Agreeable to Therapy Subjective Comment I am tired Family/Caregiver Present No Current Functional Status OT Functional Mobility Patient completed sit <> stand from EOB with Antoni and verbal cues for proper hand placement. Patient demonstrated functional mobility with item retrieval with CGA utilizing walker. OT Self Care Patient demonstrated donning of socks with Antoni sitting EOB. Precautions Precautions Bed/Chair Alarm;Fall risk Pain Assessment Pain Assessment 0-10 Pain Score 8 Pain Location Arm Pain Orientation Left Balance Balance Yes Static Sitting Balance Static Sitting-Balance Support Feet supported Static Sitting-Sitting Surface Bed Static Sitting-Level of Assistance Close supervision Dynamic Sitting Balance Dynamic Sitting-Balance Support No upper extremity supported;Feet supported Dynamic Sitting-Balance Forward lean;Reaching for objects;Reaching across midline Dynamic Sitting-Sitting Surface Bed Dynamic Sitting-Level of Assistance Close supervision Static Standing Balance Static Standing-Balance Support Bilateral upper extremity supported Static Standing-Standing Surface Floor Static Standing-Level of Assistance Contact guard Static Standing-Comment/# of Minutes up to 4 minutes Bed Mobility Bed Mobility Yes Bed Mobility 1 Bed Mobility From 1 Supine Bed Mobility Type 1 To and from Bed Mobility to 1 Edge of bed Level of Assistance 1 Standby Assist Bed Mobility Comments 1 use of bed railing Safe Environment End of Therapy Session Safe Environment End of Therapy Session Patient left supine in bed;Bed alarm in place and activated;RN notified;Call light within reach;Overbed table within reach;Bed in lowest position with wheels locked;Bed rails up per protocol Plan Plan Continue with current plan Recommendation/Plan OT Recommendation Home with family;Home with caregiver;Home Health OT Time Calculation Start Time 813 Stop Time 822 Time Calculation (min) 9 min Education provided to the patient/caregiver regarding the role of occupational therapy, plan of care, goals of therapy, rationale for progressing mobility and use of call light. fair understanding. Pole Peeling Machine Operator Helper Services Utilized: NO * Chavez Hartman MD - 12/24/2023 1:37 PM CDT Images from the original note were not included. General Medicine Daily Progress SUBJECTIVE 12/22/2023 I have seen and examined the patient today. Patient was very lethargic. Having dialysis now. Blood pressure is high. 12/23/23 I have seen and examined the patient today. Patient was more awake and alert today. Had dialysis yesterday. Blood pressure is still very high 12/24/2023 I have seen and examined the patient today. Patient was more alert and answering questions. Awake and oriented x1 OBJECTIVE Vitals: 24hr Min/Max: Temp Min: 36 ??C (96.8 ??F) Max: 37 ??C (98.6 ??F) Pulse Min: 68 Max: 91 BP Min: 129/64 Max: 176/79 Resp Min: 14 Max: 20 SpO2 Min: 98 % Max: 100 % Most Recent : Vitals: 12/24/23 1130 BP: 142/82 Pulse: 70 Resp: Temp: 36.5 ??C (97.7 ??F) SpO2: 98% I/O last 2 completed shifts: In: 720 [P.O.:720] Out: - I/O this shift: In: 850 [I.V.:250; Other:600] Out: 2600 [Other:2600] Physical Exam: General appearance: Not in acute distress, lying in the bed having dialysis. Eyes: EOMI, SB, sclare non icteric Neck: supple, Lungs : Diminished breath sounds. Heart: [id number], no significant murmur or gallop Abd: +BS, Non Tender, Non distended, No gross hepatomegaly Lower Ext: No gross edema, pedal artery pulses are palpable bilaterally Neuro: Patient was more awake today Musculoskeletal: no gross joint erythema, edema, tenderness Skin: No new change Lab/Current Medication Review: reviewed Recent Results (from the past 24 hour(s)) POCT glucose Collection Time: 12/23/23 4:44 PM Result Value Ref Range Glucose, POC 82 70 - 199 mg/dL POCT glucose Collection Time: 12/23/23 8:41 PM Result Value Ref Range Glucose, POC 145 70 - 199 mg/dL Glucose comment 1 Use This Result Glucose comment 2 RN/MD Notified Basic metabolic panel Collection Time: 12/24/23 7:16 AM Result Value Ref Range Sodium 137 135 - 145 mmol/L Potassium, pl 4.3 3.3 - 4.9 mmol/L Chloride 99 97 - 110 mmol/L CO2 26 22 - 32 mmol/L Anion gap 12 2 - 15 mmol/L BUN 46 (H) 6 - 25 mg/dL Creatinine 3.70 (H) 0.60 - 1.10 mg/dL Glucose 133 70 - 199 mg/dL Calcium 8.5 8.5 - 10.3 mg/dL CBC with auto differential Collection Time: 12/24/23 7:16 AM Result Value Ref Range WBC 11.5 (H) 3.8 - 9.9 K/cumm Hgb 9.1 (L) 11.9 - 15.5 g/dL Hct 27.9 (L) 35.6 - 45.5 % Plt 263 150 - 400 K/cumm MPV 10.3 9.1 - 12.3 fL RBC 2.96 (L) 3.90 - 5.20 M/cumm MCV 94.3 81.3 - 96.4 fL MCH 30.7 27.1 - 33.3 pg MCHC 32.6 32.3 - 35.7 g/dL RDW CV 13.9 11.1 - 14.9 % RDW SD 47.6 35.7 - 48.1 fL NRBC abs 0.00 0.00 - 0.01 K/cumm Differential, auto Collection Time: 12/24/23 7:16 AM Result Value Ref Range Neutrophil abs 7.8 (H) 1.5 - 6.5 K/cumm Imm gran abs 0.0 0.0 - 0.1 K/cumm Lymphocyte abs 2.6 0.8 - 3.3 K/cumm Monocyte abs 0.8 0.2 - 0.8 K/cumm Eosinophil abs 0.3 0.0 - 0.5 K/cumm Basophil abs 0.0 0.0 - 0.1 K/cumm Neutrophil pct 67.6 % Imm gran pct 0.3 % Lymphocyte pct 22.7 % Monocyte pct 7.0 % Eosinophil pct 2.3 % Basophil pct 0.1 % eGFR Collection Time: 12/24/23 7:16 AM Result Value Ref Range eGFR 12 (L) >=60 mL/min/1.73 m2 POCT glucose Collection Time: 12/24/23 8:27 AM Result Value Ref Range Glucose, POC 137 70 - 199 mg/dL Glucose comment 1 Use This Result Glucose comment 2 RN/MD Notified POCT glucose Collection Time: 12/24/23 11:56 AM Result Value Ref Range Glucose, POC 135 70 - 199 mg/dL Imaging Current Facility-Administered Medications Medication Dose Route Frequency Provider Last Rate Last Admin acetaminophen (TYLENOL) tablet 975 mg 975 mg oral Q8H Julieta Helms PA 975 mg at 12/24/23 1212 albumin 25 % bottle 25 g 25 g intravenous PRN Tucker Pitts MD 25 g at 12/24/23 0823 aspirin enteric coated tablet 81 mg 81 mg oral Daily Julieta Helms PA 81 mg at 12/24/23 1158 atorvastatin (LIPITOR) tablet 40 mg 40 mg oral Nightly Julieta Helms PA 40 mg at 12/23/238 benztropine (COGENTIN) tablet 1 mg 1 mg oral Nightly Julieta Helms PA 1 mg at 12/23/238 benztropine (COGENTIN) tablet 2 mg 2 mg oral Daily Julieta Helms PA 2 mg at 12/24/23 1157 calcium acetate(phosphat bind) (PHOSLO) capsule 667 mg 667 mg oral TID with meals Julieta Helms PA 667 mg at 12/24/23 1158 Carrier Fluids for Secondary Infusion - 0.9% Sodium Chloride 30 mL intravenous PRN Julieta Helms PA carvediloL (COREG) tablet 3.125 mg 3.125 mg oral BID with meals (bkfst, dinner) Julieta Helms PA 3.125 mg at 12/24/23 1158 darbepoetin isaiah (ARANESP) 40 mcg/mL injection 40 mcg 40 mcg intravenous Weekly - 2099 Tucker Pitts MD 40 mcg at 12/20/23 2130 dextrose (GLUTOSE) 40 % gel 15 g 15 g oral Q15 Min PRN Julieta Helms PA Or dextrose (D10W) 10% bolus 250 mL 250 mL intravenous Q15 Min PRN Julieta Helms PA docusate sodium (COLACE) capsule 100 mg 100 mg oral BID PRN Julieta Helms PA 100 mg at 131 famotidine (PEPCID) tablet 10 mg 10 mg oral Daily Julieta Helms PA 10 mg at 12/24/23 1159 ferrous sulfate tablet 325 mg 65 mg of elemental iron oral BID with meals (bkfst, dinner) Julieta Helms PA 325 mg at 12/24/23 1159 fluticasone propionate (FLONASE) 50 mcg/actuation nasal spray 2 spray 2 spray each nostril Daily Julieta Helms PA 2 spray at 12/24/23 1202 glucagon injection 1 mg 1 mg intramuscular Q30 Min PRN Julieta Helms PA heparin 1,000 unit/mL injection 1.5-6.9 mL 1.5-6.9 mL intra-catheter Once Tucker Pitts MD heparin 5,000 unit/mL injection 5,000 Units 5,000 Units subcutaneous Q8H SOL Julieta Helms PA 5,000 Units at 12/24/23 1317 hydrALAZINE (APRESOLINE) injection 10 mg 10 mg intravenous Q4H PRN Chavez Hartman MD hydrALAZINE (APRESOLINE) tablet 25 mg 25 mg oral TID Audie Spencer MD 25 mg at 12/24/23 1158 HYDROcodone-acetaminophen (NORCO) 5-325 mg per tablet 1 tablet 1 tablet oral Q4H PRN Audie Spencer MD 1 tablet at 12/22/232021 insulin glargine (LANTUS, SEMGLEE) 100 unit/mL injection 15 Units 15 Units subcutaneous Nightly Julieta Helms PA 15 Units at 12/23/232050 insulin lispro (HumaLOG, ADMELOG) 100 unit/mL injection 4 Units 4 Units subcutaneous TID AC Julieta Helms PA 4 Units at 12/24/23 1210 lidocaine (LIDODERM) 5 % patch 3 patch 3 patch transdermal Q24H Julieta Helms PA 3 patch at 12/23/232042 NIFEdipine (PROCARDIA XL/ADALAT CC) extended release tablet 60 mg 60 mg oral Daily Audie Spencer MD 60 mg at 12/24/23 115 ondansetron ODT (ZOFRAN-ODT) disintegrating tablet 4 mg 4 mg oral Q6H PRN Julieta Helms PA Or ondansetron (ZOFRAN) injection 4 mg 4 mg intravenous Q6H PRN Julieta Helms PA polyethylene glycol (MIRALAX) packet 17 g 17 g oral Daily PRN Julieta Helms PA ramelteon (ROZEREM) tablet 8 mg 8 mg oral Nightly PRN Julieta Helms PA 8 mg at 12/23/232038 risperiDONE (RisperDAL) tablet 2 mg 2 mg oral Nightly Julieta Helms PA 2 mg at 12/23/232050 sodium chloride 0.9% bolus 200 mL 200 mL intravenous PRN Tucker Pitts MD sodium chloride 0.9% flush 0.5-20 mL 0.5-20 mL intra-catheter Q8H SOL Julieta Helms PA 10 mL at12/24/23 0600 sodium chloride 0.9% flush 0.5-20 mL 0.5-20 mL intra-catheter PRN Julieta Hemls PA traMADoL (ULTRAM) tablet 50 mg 50 mg oral Q8H PRN Julieta Helms PA 50 mg at 12/23/23 0642 A/P: Principal Problem: Syncope, unspecified syncope type Active Problems: Type 2 diabetes mellitus with diabetic neuropathy, with long-term current use of insulin ([facility]) Primary hypertension Gastroesophageal reflux disease without esophagitis Schizoaffective disorder, bipolar type ([facility]/HCC) ([facility]) Parkinsonism ([facility]) Anemia in chronic kidney disease, on chronic dialysis ([facility]) ESRD on hemodialysis (CMS/HCC) ([facility]) Pain in left arm Leukocytosis ESRD on dialysis ([facility]) Anemia of renal disease Resolved Problems: No resolved hospital problems. Assessment and plan 12/22/2023 Syncopal episode and collapse. Neurology is following. Patient refused EEG. 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 Patient had history of recent stroke. Neurology recommended EEG but patient refused. Patient is still very lethargic today. 2. Uncontrolled hypertension. Patient blood pressure dropped yesterday during dialysis. It went down to 70s. This morning again blood pressure is very high. Patient was on nifedipine. Coreg hydralazine. Continue that for now. Will check blood pressure again after dialysis. 3. End-stage renal disease on hemodialysis. Nephrology is following. Patient will have dialysis today. 4. Anemia of chronic disease. Hemoglobin is stable. Patient is on darbepoetin. Hemoglobin is 8.8. 5. Hyperkalemia resolved same is 4.5. Patient was having dialysis today Assessment and plan 12/23/2023 1. Syncopal episode and collapse with acute encephalopathy. but she is more awake and alert today. Improving. Patient did not have dialysis today. Could be related to dialysis induced hypotension. Will hold antihypertensive before dialysis. EEG showed diffuse cerebral dysfunction likely encephalopathy not suggestive of seizure 2. Uncontrolled hypertension. Blood pressure was again high this afternoon. I will give extra dose of nifedipine. Continue her other home medication for now. Will try to avoid hypotension. Will closely monitor blood pressure and will give hydralazine IV if systolic blood pressure goes above 180. 3. End-stage renal disease on hemodialysis nephrology is following. Plan for dialysis tomorrow 4. Anemia of chronic disease. Hemoglobin is stable. 5. Hyperkalemia: Resolved. Potassium is 4.2. Assessment and plan 12/24/2023 1. Syncopal episode and collapse with acute encephalopathy. Patient is more awake and alert today. I think this is her baseline. Patient had dialysis this morning. Tolerated better but again became hypotensive during the procedure and to receive albumin. Now blood pressure is better. Nephrology is okay for discharge 2. Generalized weakness. PT OT is following. Patient had not been worked for several days because of the mental status. 3. Uncontrolled hypertension. Blood pressure was better controlled. But blood pressure drops duringdialysis. I think patient might benefit to hold antihypertensive on dialysis days before dialysis. She should take her medicine after dialysis. I gave a dose of nifedipine yesterday. 4. Anemia of chronic disease from chronic kidney disease. Hemoglobin is stable. DVT prophylaxis: Heparin PT/OT: following Case discussed with Case Management and Safety Teacher Medical complexity/risk: low I will observe patient overnight as patient blood pressure dropped during dialysis. If patient doeswell and blood pressure is better controlled plan to discharge patient home with home health tomorrow My total encounter time on 12/24/2023 was 25 minutes which was spent in the activities documented in the note. This includes time spent prior to the visit and after the visit in direct care of the patient. This time does not include time spent in any separately reportable services. Voice recognition software [employer] may have been used dictate and transcribe this document. Talk Show Host variances may occur. Despite proofreading, typographical errors may occur. Chavez Hartman MD 12/24/2023 1:37 PM * Hattie Miranda, BEATER WORKER HELPER - 12/24/2023 11:38 AM CDT Physical Therapy 12/24/23 1138 PT Last Visit Session Type Treatment PT Received On 12/24/23 Safe Environment Arm band checked;Patient found sitting at edge of bed Subjective Agreeable to Therapy Subjective Comment (Statesshe is wanting to go to bathroom.) Family/Caregiver Present No Transfer 1 Transfer From 1 Sit Transfer Type 1 To and from Transfer to 1 Stand Technique 1 Sit to stand;Stand to sit Transfer Device 1 Wheeled walker Transfer Level of Assistance 1 (Min assist of 2) Trials/Comments 1 Pt did well transfering from EOB . Ambulation 1 Distance (ft) 1 10 ft Surface 1 Level tile Device 1 Wheeled walker Assistance 1 (min assist of 2) Gait: Requires assist with 1 Maintaining balance Quality of Gait 1 Pt did very well walking to bathroom with assist of 2. (with OT Gudelia) When patient was getting ready to get up from bathroom had an episode of blank stare and not responding for alittle over a min.. Nursing notified and assisted with pt. Pt was then transfered to recliner mod assist of 2. Nurse present . Safe Environment End of Therapy Session Safe Environment End of Therapy Session Patient left in recliner (Pt left in recliner per nursing. Pt was talking wanting a cup of coffee.) Recommendation/Plan PT Recommendation/Plan Home with family Patient at high risk for Falls;Injury due to decreased ability to care for self Time Calculation Start Time 1138 Stop Time 1150 Time Calculation (min) 12 min Multi-Disciplinary Problems (from Physical Therapy) Active Problems Problem: PT Misc Start Date: 12/20/23 Goal Start Date Expected End Date End Date PT LTG - Misc 5 12/20/23 01/03/24 -- Goal Details: Patient to ambulate 100 feet with wheeled walker and CGA or less. Goal Start Date Expected End Date End Date PT STG - Misc 1 12/20/23 01/03/24 -- Goal Details: Patient to be independent with sit to stand transfer with wheeled walker. Goal Start Date Expected End Date End Date PT STG - Misc 2 12/20/23 01/03/24 -- Goal Details: Patient to be independent with all bed mobility. Progressing toward goals Pole Peeling Machine Operator Helper Services Utilized: NO Educated the patient to the role of physical therapy, plan of care, goals of therapy, rationale forprogressing mobility. Patient was left with all needs met and equipment intact. Mobility and ADL status posted at bedsideand within medical record. * Erica Marquez COTA - 12/24/2023 11:25 AM CDT Occupational Therapy 12/24/23 1125 General Session Type Treatment OT Received On 12/24/23 Safe Environment Arm band checked;Patient found in supine;Session completed bedside;Gait belt utilized for all out of bed mobility Subjective Agreeable to Therapy Subjective Comment I need to go to the bathroom Family/Caregiver Present No Current Functional Status OT Functional Mobility Please refer to PT flowsheet OT Self Care Patient completed toilet transfer with Antoni X2 for safety and verbal cues for proper hand placement and use of grab bars. Patient required MaxA for clothing mangement and CGA for anterior hygiene. Precautions Precautions Bed/Chair Alarm;Fall risk Pain Assessment Pain Assessment 0-10 Pain Score 4 Pain Location Arm Pain Orientation Left Balance Balance Yes Static Sitting Balance Static Sitting-Balance Support Bilateral upper extremity supported;Feet supported Static Sitting-Sitting Surface Bed Static Sitting-Level of Assistance Close supervision Static Sitting-Comment/# of Minutes up to 3 mintues Dynamic Sitting Balance Dynamic Sitting-Balance Forward lean;Reaching for objects;Reaching across midline Dynamic Sitting-Sitting Surface Bed Dynamic Sitting-Level of Assistance Contact guard Dynamic Sitting-Comments attempting to elias underwear LE Dressing LE Dressing: Where assessed Edge of bed LE Dressing: Level of assistance Minimum Assist (to knee level only) LE Dressing: Assistance with Thread LLE into underwear;Thread RLE into underwear Bed Mobility Bed Mobility Yes Bed Mobility 1 Bed Mobility From 1 Supine Bed Mobility Type 1 To Bed Mobility to 1 Edge of bed Level of Assistance 1 Minimum Assist Other Comments Comments RN was notified and agreed to therapy. Patient exhibited blank stare episode while sittingon toilet with no responsivess but was able to maintain sitting balance. Within a little over a minute patient stated her name and where she is at and asked for a cup of coffee. RN stated that this is what has been happening after dialysis. Patient required increase assistance after episode Safe Environment End of Therapy Session Safe Environment End of Therapy Session Patient left in recliner;Chair alarm in place and activated;RN notified;Call light within reach;Overbed table within reach (RN at bedside with bilateral feet elevated) Plan Plan Continue with current plan Recommendation/Plan OT Recommendation (S) Home with family;Home with caregiver;Home Health OT Time Calculation Start Time 1125 Stop Time 1137 Time Calculation (min) 12 min Education provided to the patient/caregiver regarding the role of occupational therapy, plan of care, goals of therapy, rationale for progressing mobility and use of call light. Fair understanding. Pole Peeling Machine Operator Helper Services Utilized: NO Cotx with ANG Kuhn ([phone]) for safety of patient and staff due to current diagnosis, medical status, and/or level of physical assist needed due to weakness or equipment management. * Erica Marquez COTA - 12/24/2023 11:02 AM CDT Occupational Therapy 12/24/23 1001 General Session Type Treatment OT Missed Visit Reason Procedure/testing/appointment (dialysis at bedside) * Erica Marquez COTA - 12/24/2023 11:02 AM CDT Occupational Therapy 12/24/23 0712 General Session Type Treatment OT Missed Visit Reason With other staff/receiving another service (diaylsis at bedside) * Rivka Wilson - 12/23/2023 3:41 PM CDT Spiritual Care Note Rivka Wilson MCM, M.Div 12/22/23 0800 Time Spent Start Time 1540 Patient Spiritual Assessment Spirituality Assessed Yes Episcopalian Affiliation Mormon Active in Scientology Yes (asks for prayer) Clinical Encounter Type Visited With Patient Advance Directives (For Healthcare) Advance Directive Patient does not have advance directive Interventions Interventions Prayer * Chavez Hartman MD - 12/23/2023 3:25 PM CDT Images from the original note were not included. General Medicine Daily Progress SUBJECTIVE 12/22/2023 I have seen and examined the patient today. Patient was very lethargic. Having dialysis now. Blood pressure is high. 12/23/23 I have seen and examined the patient today. Patient was more awake and alert today. Had dialysis yesterday. Blood pressure is still very high OBJECTIVE Vitals: 24hr Min/Max: Temp Min: 36.5 ??C (97.7 ??F) Max: 37.4 ??C (99.3 ??F) Pulse Min: 71 Max: 89 BP Min: 138/81 Max: 190/81 Resp Min: 14 Max: 18 SpO2 Min: 97 % Max: 100 % Most Recent : Vitals: 12/23/23 1521 BP: (!) 162/128 Pulse: 75 Resp: 14 Temp: 37 ??C (98.6 ??F) SpO2: 98% I/O last 2 completed shifts: In: 750 [I.V.:250; Other:500] Out: 1500 [Other:1500] I/O this shift: In: 360 [P.O.:360] Out: - Physical Exam: General appearance: Not in acute distress, very lethargic lying in the bed having dialysis. Eyes: EOMI, SB, sclare non icteric Neck: supple, Lungs : Diminished breath sounds. Heart: [id number], no significant murmur or gallop Abd: +BS, Non Tender, Non distended, No gross hepatomegaly Lower Ext: No gross edema, pedal artery pulses are palpable bilaterally Neuro: Very lethargic. Answer with yes and no. Musculoskeletal: no gross joint erythema, edema, tenderness Skin: No new change Lab/Current Medication Review: reviewed Recent Results (from the past 24 hour(s)) POCT glucose Collection Time: 12/22/23 5:21 PM Result Value Ref Range Glucose, POC 128 70 - 199 mg/dL POCT glucose Collection Time: 12/22/23 7:50 PM Result Value Ref Range Glucose, POC 109 70 - 199 mg/dL Glucose comment 1 Use This Result Glucose comment 2 RN/MD Notified POCT glucose Collection Time: 12/23/23 9:06 AM Result Value Ref Range Glucose, POC 107 70 - 199 mg/dL Basic metabolic panel Collection Time: 12/23/23 9:09 AM Result Value Ref Range Sodium 140 135 - 145 mmol/L Potassium, pl 4.2 3.3 - 4.9 mmol/L Chloride 101 97 - 110 mmol/L CO2 25 22 - 32 mmol/L Anion gap 14 2 - 15 mmol/L BUN 30 (H) 6 - 25 mg/dL Creatinine 2.80 (H) 0.60 - 1.10 mg/dL Glucose 114 70 - 199 mg/dL Calcium 8.9 8.5 - 10.3 mg/dL CBC with auto differential Collection Time: 12/23/23 9:09 AM Result Value Ref Range WBC 11.4 (H) 3.8 - 9.9 K/cumm Hgb 9.9 (L) 11.9 - 15.5 g/dL Hct 30.2 (L) 35.6 - 45.5 % Plt 240 150 - 400 K/cumm MPV 10.2 9.1 - 12.3 fL RBC 3.18 (L) 3.90 - 5.20 M/cumm MCV 95.0 81.3 - 96.4 fL MCH 31.1 27.1 - 33.3 pg MCHC 32.8 32.3 - 35.7 g/dL RDW CV 13.8 11.1 - 14.9 % RDW SD 47.9 35.7 - 48.1 fL NRBC abs 0.02 (H) 0.00 - 0.01 K/cumm Differential, auto Collection Time: 12/23/23 9:09 AM Result Value Ref Range Neutrophil abs 8.1 (H) 1.5 - 6.5 K/cumm Imm gran abs 0.0 0.0 - 0.1 K/cumm Lymphocyte abs 2.2 0.8 - 3.3 K/cumm Monocyte abs 0.9 (H) 0.2 - 0.8 K/cumm Eosinophil abs 0.2 0.0 - 0.5 K/cumm Basophil abs 0.0 0.0 - 0.1 K/cumm Neutrophil pct 70.8 % Imm gran pct 0.4 % Lymphocyte pct 19.2 % Monocyte pct 8.2 % Eosinophil pct 1.3 % Basophil pct 0.1 % eGFR Collection Time: 12/23/23 9:09 AM Result Value Ref Range eGFR 17 (L) >=60 mL/min/1.73 m2 POCT glucose Collection Time: 12/23/23 12:56 PM Result Value Ref Range Glucose, POC 149 70 - 199 mg/dL Imaging Current Facility-Administered Medications Medication Dose Route Frequency Provider Last Rate Last Admin acetaminophen (TYLENOL) tablet 975 mg 975 mg oral Q8H Julieta Helms PA 975 mg at 12/23/23 1400 aspirin enteric coated tablet 81 mg 81 mg oral Daily Julieta Helms PA 81 mg at 12/23/23 0940 atorvastatin (LIPITOR) tablet 40 mg 40 mg oral Nightly Julieta Helms PA 40 mg at 12/22/232021 benztropine (COGENTIN) tablet 1 mg 1 mg oral Nightly Julieta Helms PA 1 mg at 12/22/232021 benztropine (COGENTIN) tablet 2 mg 2 mg oral Daily Julieta Helms PA 2 mg at 12/23/23 0940 calcium acetate(phosphat bind) (PHOSLO) capsule 667 mg 667 mg oral TID with meals Julieta Helms PA 667 mg at 12/23/23 1400 Carrier Fluids for Secondary Infusion - 0.9% Sodium Chloride 30 mL intravenous PRN Julieta Helms PA carvediloL (COREG) tablet 3.125 mg 3.125 mg oral BID with meals (bkfst, dinner) Julieta Helms PA 3.125 mg at 12/23/23 0939 darbepoetin isaiah (ARANESP) 40 mcg/mL injection 40 mcg 40 mcg intravenous Weekly - 2099 Tucker Pitts MD 40 mcg at 12/20/23 2130 dextrose (GLUTOSE) 40 % gel 15 g 15 g oral Q15 Min PRN Julieta Helms PA Or dextrose (D10W) 10% bolus 250 mL 250 mL intravenous Q15 Min PRN Jluieta Helms PA docusate sodium (COLACE) capsule 100 mg 100 mg oral BID PRN Julieta Helms PA 100 mg at 131 famotidine (PEPCID) tablet 10 mg 10 mg oral Daily Julieta Helms PA 10 mg at 12/23/23 0939 ferrous sulfate tablet 325 mg 65 mg of elemental iron oral [facility] Julieta Helms PA 325 mg at 12/23/23 0940 fluticasone propionate (FLONASE) 50 mcg/actuation nasal spray 2 spray 2 spray each nostril Daily Julieta Helms PA 2 spray at 12/23/23 0940 glucagon injection 1 mg 1 mg intramuscular Q30 Min PRN Julieta Helms PA heparin 5,000 unit/mL injection 5,000 Units 5,000 Units subcutaneous Q8H SOL Julieta Helms PA 5,000 Units at 12/23/23 1400 hydrALAZINE (APRESOLINE) injection 20 mg 20 mg intravenous Q4H PRN Audie Spencer MD 20 mgat 12/20/23 1623 hydrALAZINE (APRESOLINE) tablet 25 mg 25 mg oral TID Audie Spencer MD 25 mg at 12/23/23 0940 HYDROcodone-acetaminophen (NORCO) 5-325 mg per tablet 1 tablet 1 tablet oral Q4H PRN Audie Spencer MD 1 tablet at 12/22/232021 insulin glargine (LANTUS, SEMGLEE) 100 unit/mL injection 15 Units 15 Units subcutaneous Nightly Julieta Helms PA 15 Units at 12/22/232037 insulin lispro (HumaLOG, ADMELOG) 100 unit/mL injection 4 Units 4 Units subcutaneous TID AC Julieta Helms PA 4 Units at 12/23/23 1400 lidocaine (LIDODERM) 5 % patch 3 patch 3 patch transdermal Q24H Julieta Helms PA 3 patch at 12/22/232021 NIFEdipine (PROCARDIA XL/ADALAT CC) extended release tablet 60 mg 60 mg oral Daily Audie Spencer MD 60 mg at 12/23/23 0940 ondansetron ODT (ZOFRAN-ODT) disintegrating tablet 4 mg 4 mg oral Q6H PRN Julieta Helms PA Or ondansetron (ZOFRAN) injection 4 mg 4 mg intravenous Q6H PRN Julieta Helms PA polyethylene glycol (MIRALAX) packet 17 g 17 g oral Daily PRN Julieta Helms PA ramelteon (ROZEREM) tablet 8 mg 8 mg oral Nightly PRN Julieta Helms PA 8 mg at 12/22/232021 risperiDONE (RisperDAL) tablet 2 mg 2 mg oral Nightly Julieta Helms PA 2 mg at 12/22/232027 sodium chloride 0.9% flush 0.5-20 mL 0.5-20 mL intra-catheter Q8H SOL Julieta Helms PA 10 mL at12/23/23 1400 sodium chloride 0.9% flush 0.5-20 mL 0.5-20 mL intra-catheter PRN Julieta Helms PA traMADoL (ULTRAM) tablet 50 mg 50 mg oral Q8H PRN Julieta Helms PA 50 mg at 12/23/23 0642 A/P: Principal Problem: Syncope, unspecified syncope type Active Problems: Type 2 diabetes mellitus with diabetic neuropathy, with long-term current use of insulin ([facility]) Primary hypertension Gastroesophageal reflux disease without esophagitis Schizoaffective disorder, bipolar type (CMS/HCC) ([facility]) Parkinsonism (HCC) Anemia in chronic kidney disease, on chronic dialysis (HCC) ESRD on hemodialysis (CMS/HCC) ([facility]) Pain in left arm Leukocytosis ESRD on dialysis (HCC) Anemia of renal disease Resolved Problems: No resolved hospital problems. Assessment and plan 12/22/2023 Syncopal episode and collapse. Neurology is following. Patient refused EEG. 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 Patient had history of recent stroke. Neurology recommended EEG but patient refused. Patient is still very lethargic today. 2. Uncontrolled hypertension. Patient blood pressure dropped yesterday during dialysis. It went down to 70s. This morning again blood pressure is very high. Patient was on nifedipine. Coreg hydralazine. Continue that for now. Will check blood pressure again after dialysis. 3. End-stage renal disease on hemodialysis. Nephrology is following. Patient will have dialysis today. 4. Anemia of chronic disease. Hemoglobin is stable. Patient is on darbepoetin. Hemoglobin is 8.8. 5. Hyperkalemia resolved same is 4.5. Patient was having dialysis today Assessment and plan 12/23/2023 1. Syncopal episode and collapse with acute encephalopathy. but she is more awake and alert today. Improving. Patient did not have dialysis today. Could be related to dialysis induced hypotension. Will hold antihypertensive before dialysis. EEG showed diffuse cerebral dysfunction likely encephalopathy not suggestive of seizure 2. Uncontrolled hypertension. Blood pressure was again high this afternoon. I will give extra dose of nifedipine. Continue her other home medication for now. Will try to avoid hypotension. Will closely monitor blood pressure and will give hydralazine IV if systolic blood pressure goes above 180. 3. End-stage renal disease on hemodialysis nephrology is following. Plan for dialysis tomorrow 4. Anemia of chronic disease. Hemoglobin is stable. 5. Hyperkalemia: Resolved. Potassium is 4.2. DVT prophylaxis: Heparin PT/OT: following Case discussed with Case Management and Safety Teacher Medical complexity/risk: moderate My total encounter time on 12/23/2023 was 35 minutes which was spent in the activities documented in the note. This includes time spent prior to the visit and after the visit in direct care of the patient. This time does not include time spent in any separately reportable services. Voice recognition software [employer] Fluency Direct may have been used dictate and transcribe this document. Talk Show Host variances may occur. Despite proofreading, typographical errors may occur. Chavez Hartman MD 12/23/2023 3:25 PM * Xenia Slade LCSW - 12/23/2023 1:47 PM CDT Dialysis Follow Up SW has identified that pt is a current outpatient hemodialysis patient at: Dialysis Clinic: [facility] Address: [place] [facility] [address] [place] [address] Schedule and Chair Time: TTS 12:35p *Pt has family sitter with her during HD session. Transportation: Children Caregiver Support: Children PLAN: SW spoke with ward secretary desk. Clinic able to accept back at pa. Asked that dc orders be faxedto (fax: [phone]) on day of dc. Open on holiday (12/23) for regularly scheduled sessions. Xenia Slade LCSW 12/23/23 1:50pm * Erica Marquez COTA - 12/23/2023 10:23 AM CDT Occupational Therapy 12/23/23 1023 General Session Type Treatment OT Missed Visit Reason Asleep (Patient opened her eyes once and stated NO when BURTON introduced herself and the reason for the visit) Patient unable to keep eyes open and engaged in conversation with therapist. RN notified and statedthat she was up all night * Maddie Lepe PTA - 12/23/2023 10:22 AM CDT Physical Therapy 12/23/23 1022 PT Last Visit PT Missed Visit Reason Patient declined Rehab Only - Missed Reasons - All Disciplines Asleep (Pt lethargic and declined) * Erica Marquez COTA - 12/23/2023 9:24 AM CDT Occupational Therapy 12/23/23 0924 General Session Type Treatment OT Missed Visit Reason Other (comment) (sitting upright in bed eating breakfast) * Tukcer Pitts MD - 12/23/2023 8:42 AM CDT Nephrology Daily Progress Subjective Reason for follow up ESRD/HD. Interval History: Laying in bed in no acute distress. Denies any new complaints. Objective Vitals: 24hr Min/Max: Temp Min: 36.5 ??C (97.7 ??F) Max: 37.4 ??C (99.3 ??F) Pulse Min: 71 Max: 89 BP Min: 131/62 Max: 190/81 Resp Min: 14 Max: 17 SpO2 Min: 97 % Max: 99 % Most Recent: Vitals: 12/23/23 0318 BP: (!) 182/67 Pulse: 71 Resp: 16 Temp: 36.5 ??C (97.7 ??F) SpO2: 97% Physical Exam: Constitutional: Appears well-developed and well-nourished. Head: Normocephalic and atraumatic. Eyes: EOM are normal. Neck: Normal range of motion. Cardiovascular: Normal rate and regular rhythm. Pulmonary/Chest: Effort normal and breath sounds normal. Abdominal: Soft. Bowel sounds are normal. Musculoskeletal: Normal range of motion. No edema. Neurological: Alert and oriented to person, place, and time. Skin: Skin is warm and dry. Psychiatric: Normal mood and affect. Assessment/Plan Principal Problem: Syncope, unspecified syncope type Active Problems: Type 2 diabetes mellitus with diabetic neuropathy, with long-term current use of insulin (HCC) Primary hypertension Gastroesophageal reflux disease without esophagitis Schizoaffective disorder, bipolar type (CMS/HCC) (HCC) Parkinsonism (HCC) Anemia in chronic kidney disease, on chronic dialysis (HCC) ESRD on hemodialysis (CMS/HCC) (HCC) Pain in left arm Leukocytosis ESRD on dialysis (HCC) Anemia of renal disease ESRD on hemodialysis Anemia of renal disease Recommendation --will plan dialysis tomorrow for a short session since he had only 20-30 minutes of dialysis yesterday. Mildly hyperkalemic today and hence will use a 2K bath. Will optimize fluid removal to blood pressure and tolerance with the initial goal of 1-1.5 L. she has anemia of CKD, likely on a long-acting erythropoietin analog in the dialysis unit but since hemoglobin is 8.9 g% will keep her on erythropoietin analog in the hospital. --neurology workup underway --discuss plan with family members at the bedside 7,1 Seen and examined on acute hemodialysis. Systolic blood pressure in the high 70s, discontinuing ultrafiltration, may need to administer IV fluids if BP does not improve. Was hypertensive previously. May need to adjust hydralazine and nifedipine if continues to have hypotensive episodes on dialysis.Continue current treatment otherwise. 12/23/2023 Dialyzed yesterday with net ultrafiltration of 1 L. Tolerated well. No plans for dialysis today butwill dialyze tomorrow as per regular schedule. Erythropoietin analog for anemia of renal disease. Noted neurology opinion regarding EEG. * Erica Marquez COTA - 12/22/2023 1:09 PM CDT Occupational Therapy 12/22/23 1309 General Session Type Treatment Rehab Only - Missed Reasons - All Disciplines Procedures/testing for EEG * Maddie Lepe PTA - 12/22/2023 1:07 PM CDT Physical Therapy 12/22/23 1307 PT Last Visit PT Missed Visit Reason Procedure/testing/appointment Rehab Only - Missed Reasons - All Disciplines Procedures/testing (Pt in cardiac testing witll check back in the am) * Chavez Hartman MD - 12/22/2023 11:42 AM CDT Images from the original note were not included. General Medicine Daily Progress SUBJECTIVE 12/22/2023 I have seen and examined the patient today. Patient was very lethargic. Having dialysis now. Blood pressure is high. OBJECTIVE Vitals: 24hr Min/Max: Temp Min: 36.2 ??C (97.2 ??F) Max: 36.5 ??C (97.7 ??F) Pulse Min: 69 Max: 89 BP Min: 131/62 Max: 192/76 Resp Min: 15 Max: 18 SpO2 Min: 95 % Max: 100 % Most Recent : Vitals: 12/22/23 1105 BP: 166/82 Pulse: 83 Resp: 16 Temp: 36.5 ??C (97.7 ??F) SpO2: I/O last 2 completed shifts: In: 368 [P.O.:118; I.V.:250] Out: 1490 [Urine:100; Other:1390] I/O this shift: In: 750 [I.V.:250; Other:500] Out: 1500 [Other:1500] Physical Exam: General appearance: Not in acute distress, very lethargic lying in the bed having dialysis. Eyes: EOMI, SB, sclare non icteric Neck: supple, Lungs : Diminished breath sounds. Heart: [id number], no significant murmur or gallop Abd: +BS, Non Tender, Non distended, No gross hepatomegaly Lower Ext: No gross edema, pedal artery pulses are palpable bilaterally Neuro: Very lethargic. Answer with yes and no. Musculoskeletal: no gross joint erythema, edema, tenderness Skin: No new change Lab/Current Medication Review: reviewed Recent Results (from the past 24 hour(s)) POCT glucose Collection Time: 12/21/23 12:19 PM Result Value Ref Range Glucose, POC 145 70 - 199 mg/dL Glucose comment 1 Use This Result POCT glucose Collection Time: 12/21/23 4:23 PM Result Value Ref Range Glucose, POC 136 70 - 199 mg/dL Glucose comment 1 Use This Result POCT glucose Collection Time: 12/21/23 10:19 PM Result Value Ref Range Glucose, POC 132 70 - 199 mg/dL Glucose comment 1 Use This Result Glucose comment 2 RN/MD Notified POCT glucose Collection Time: 12/22/23 8:50 AM Result Value Ref Range Glucose, POC 115 70 - 199 mg/dL Basic metabolic panel Collection Time: 12/22/23 9:11 AM Result Value Ref Range Sodium 137 135 - 145 mmol/L Potassium, pl 4.5 3.3 - 4.9 mmol/L Chloride 97 97 - 110 mmol/L CO2 26 22 - 32 mmol/L Anion gap 14 2 - 15 mmol/L BUN 46 (H) 6 - 25 mg/dL Creatinine 3.30 (H) 0.60 - 1.10 mg/dL Glucose 151 70 - 199 mg/dL Calcium 8.7 8.5 - 10.3 mg/dL CBC with auto differential Collection Time: 12/22/23 9:11 AM Result Value Ref Range WBC 11.5 (H) 3.8 - 9.9 K/cumm Hgb 8.8 (L) 11.9 - 15.5 g/dL Hct 27.0 (L) 35.6 - 45.5 % Plt 241 150 - 400 K/cumm MPV 11.0 9.1 - 12.3 fL RBC 2.90 (L) 3.90 - 5.20 M/cumm MCV 93.1 81.3 - 96.4 fL MCH 30.3 27.1 - 33.3 pg MCHC 32.6 32.3 - 35.7 g/dL RDW CV 14.1 11.1 - 14.9 % RDW SD 47.7 35.7 - 48.1 fL NRBC abs 0.00 0.00 - 0.01 K/cumm Differential, auto Collection Time: 12/22/23 9:11 AM Result Value Ref Range Neutrophil abs 8.5 (H) 1.5 - 6.5 K/cumm Imm gran abs 0.1 0.0 - 0.1 K/cumm Lymphocyte abs 1.8 0.8 - 3.3 K/cumm Monocyte abs 1.1 (H) 0.2 - 0.8 K/cumm Eosinophil abs 0.1 0.0 - 0.5 K/cumm Basophil abs 0.0 0.0 - 0.1 K/cumm Neutrophil pct 74.1 % Imm gran pct 0.5 % Lymphocyte pct 15.6 % Monocyte pct 9.3 % Eosinophil pct 0.4 % Basophil pct 0.1 % eGFR Collection Time: 12/22/23 9:11 AM Result Value Ref Range eGFR 14 (L) >=60 mL/min/1.73 m2 Imaging Current Facility-Administered Medications Medication Dose Route Frequency Provider Last Rate Last Admin acetaminophen (TYLENOL) tablet 975 mg 975 mg oral Q8H Julieta Helms PA 975 mg at 12/22/23 0618 aspirin enteric coated tablet 81 mg 81 mg oral Daily Julieta Helms PA 81 mg at 12/22/23 1131 atorvastatin (LIPITOR) tablet 40 mg 40 mg oral Nightly Julieta Helms PA 40 mg at 12/21/232044 benztropine (COGENTIN) tablet 1 mg 1 mg oral Nightly Julieta Helms PA 1 mg at 12/21/232044 benztropine (COGENTIN) tablet 2 mg 2 mg oral Daily Julieta Helms PA 2 mg at 12/22/231130 calcium acetate(phosphat bind) (PHOSLO) capsule 667 mg 667 mg oral TID with meals Julieta Helms PA 667 mg at 12/21/23 185 Carrier Fluids for Secondary Infusion - 0.9% Sodium Chloride 30 mL intravenous PRN Julieta Helms PA carvediloL (COREG) tablet 3.125 mg 3.125 mg oral BID with meals (bkfst, dinner) Julieta Helms PA 3.125 mg at 12/21/23 185 darbepoetin isaiah (ARANESP) 40 mcg/mL injection 40 mcg 40 mcg intravenous Weekly - 2099 Tucker Pitts MD 40 mcg at 12/20/232129 dextrose (GLUTOSE) 40 % gel 15 g 15 g oral Q15 Min PRN Julieta Helms PA Or dextrose (D10W) 10% bolus 250 mL 250 mL intravenous Q15 Min PRN Julieta Helms PA docusate sodium (COLACE) capsule 100 mg 100 mg oral BID PRN Julieta Helms PA 100 mg at famotidine (PEPCID) tablet 10 mg 10 mg oral Daily Julieta Helms PA 10 mg at 12/21/23 0849 ferrous sulfate tablet 325 mg 65 mg of elemental iron oral BID with meals (bkfst, dinner) Julieta Helms PA 325 mg at 12/21/23 0849 fluticasone propionate (FLONASE) 50 mcg/actuation nasal spray 2 spray 2 spray each nostril Daily Julieta Helms PA 2 spray at 12/22/23 1131 glucagon injection 1 mg 1 mg intramuscular Q30 Min PRN Julieta Helms PA heparin 5,000 unit/mL injection 5,000 Units 5,000 Units subcutaneous Q8H SOL Julieta Helms PA 5,000 Units at 12/22/23 0619 hydrALAZINE (APRESOLINE) injection 20 mg 20 mg intravenous Q4H PRN Audie Spencer MD 20 mgat 12/20/23 1623 hydrALAZINE (APRESOLINE) tablet 25 mg 25 mg oral TID Audie Spencer MD 25 mg at 12/21/232044 HYDROcodone-acetaminophen (NORCO) 5-325 mg per tablet 1 tablet 1 tablet oral Q4H PRN Audie Spencer MD 1 tablet at 12/21/23 1641 insulin glargine (LANTUS, SEMGLEE) 100 unit/mL injection 15 Units 15 Units subcutaneous Nightly Julieta Helms PA 15 Units at 12/21/232046 insulin lispro (HumaLOG, ADMELOG) 100 unit/mL injection 4 Units 4 Units subcutaneous TID AC Julieta Helms PA 4 Units at 12/21/23 1855 lidocaine (LIDODERM) 5 % patch 3 patch 3 patch transdermal Q24H Julieta Helms PA 3 patch at 12/21/23 204 NIFEdipine (PROCARDIA XL/ADALAT CC) extended release tablet 60 mg 60 mg oral Daily Audie Spencer MD 60 mg at 12/22/23 1131 ondansetron ODT (ZOFRAN-ODT) disintegrating tablet 4 mg 4 mg oral Q6H PRN Julieta Helms PA Or ondansetron (ZOFRAN) injection 4 mg 4 mg intravenous Q6H PRN Julieta Helms PA polyethylene glycol (MIRALAX) packet 17 g 17 g oral Daily PRN Julieta Helms PA ramelteon (ROZEREM) tablet 8 mg 8 mg oral Nightly PRN Julieta Helms PA 8 mg at 12/21/232045 risperiDONE (RisperDAL) tablet 2 mg 2 mg oral Nightly Julieta Helms PA 2 mg at 07/01/24 2050 sodium chloride 0.9% flush 0.5-20 mL 0.5-20 mL intra-catheter Q8H [facility] Julieta Helms PA 10 mL at12/22/23 1139 sodium chloride 0.9% flush 0.5-20 mL 0.5-20 mL intra-catheter PRN Julieta Helms PA traMADoL (ULTRAM) tablet 50 mg 50 mg oral Q8H PRN Julieta Helms PA 50 mg at 12/20/23 1327 A/P: Principal Problem: Syncope, unspecified syncope type Active Problems: Type 2 diabetes mellitus with diabetic neuropathy, with long-term current use of insulin (HCC) Primary hypertension Gastroesophageal reflux disease without esophagitis Schizoaffective disorder, bipolar type (CMS/HCC) (HCC) Parkinsonism (HCC) Anemia in chronic kidney disease, on chronic dialysis (HCC) ESRD on hemodialysis (CMS/HCC) ([facility]) Pain in left arm Leukocytosis ESRD on dialysis (HCC) Anemia of renal disease Resolved Problems: No resolved hospital problems. Assessment and plan 12/22/2023 Syncopal episode and collapse. Neurology is following. Patient refused EEG. 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 Patient had history of recent stroke. Neurology recommended EEG but patient refused. Patient is still very lethargic today. 2. Uncontrolled hypertension. Patient blood pressure dropped yesterday during dialysis. It went down to 70s. This morning again blood pressure is very high. Patient was on nifedipine. Coreg hydralazine. Continue that for now. Will check blood pressure again after dialysis. 3. End-stage renal disease on hemodialysis. Nephrology is following. Patient will have dialysis today. 4. Anemia of chronic disease. Hemoglobin is stable. Patient is on darbepoetin. Hemoglobin is 8.8. 5. Hyperkalemia resolved same is 4.5. Patient was having dialysis today DVT prophylaxis: Heparin PT/OT: following Case discussed with Case Management and Safety Teacher Medical complexity/risk: moderate My total encounter time on 12/22/2023 was 35 minutes which was spent in the activities documented in the note. This includes time spent prior to the visit and after the visit in direct care of the patient. This time does not include time spent in any separately reportable services. Voice recognition software [employer] may have been used dictate and transcribe this document. Talk Show Host variances may occur. Despite proofreading, typographical errors may occur. Chavez Hartman MD 12/22/2023 11:42 AM * Erica Marquez COTA - 12/22/2023 10:06 AM CDT Occupational Therapy 12/22/23 1006 General Session Type Treatment Rehab Only - Missed Reasons - All Disciplines Procedures/testing (dialysis at bedside) * Audie Spencer MD - 12/21/2023 4:19 PM CDT General Medicine Daily Progress Subjective Chief complaint of syncope/unresponsive state at dialysis. Interval History: Patient presented from dialysis prior to completing the same after having unresponsive state for 1-2 minutes per report. On presentation here her workup was relatively unremarkable with the exception of white count of 18. She is afebrile and has remained the same. UA chest x-ray CT head done are all unremarkable. Patient's major complaint was for left shoulder pain. Her blood pressure is elevated. Per report she did not finish dialysis due to her incident. At the time of this note she has been seen and evaluated by Neurology with concerns for dialysis disequilibrium syndromeinduced seizure. No injury plans to pursue EEG. At the time of my visit this a.m. patient tells herleft shoulder pain is doing better Ultram therapy. She denies any further episodes of passing out. Her blood pressure remains elevated. She denies any chest pain headache or blurred vision. 12/21/23 - patient tells me she is feeling okay. Left Shoulder pain has improved with [facility] therapy. Went for EEG this AM but did not complete the same she did not want to have her gel from her here washed out. Rest of the 14 point review of systems was negative Objective Vitals: 24hr Min/Max: Temp Min: 36.2 ??C (97.2 ??F) Max: 36.9 ??C (98.4 ??F) Pulse Min: 71 Max: 82 BP Min: 126/56 Max: 187/68 Resp Min: 14 Max: 18 SpO2 Min: 96 % Max: 99 % Most Recent : Vitals: 12/21/23 1254 BP: 170/77 Pulse: 74 Resp: 18 Temp: SpO2: I/O last 2 completed shifts: In: 1200 [P.O.:1200] Out: 300 [Urine:300] No intake/output data recorded. Physical Exam: General Appearance: Alert, cooperative, no distress, appears stated age, well developed, well nourished HEENT: Tunneled Dialysis catheter to the left neck noted. Lungs: Clear to auscultation bilaterally, respirations unlabored Cardiovascular: Regular rate and rhythm, S1 and S2 normal, no murmur, rub or gallop, no edema, pulses 2+ and symmetric to all extremeties Abdomen: Soft, non-tender, bowel sounds active all four quadrants, no masses,non-distended, no guarding or rebound Extremities: Extremities normal, atraumatic, no cyanosis or edema, no clubbing Skin: Skin color, texture, turgor normal, no rashes, lesions or bruising Neurologic: Normal strength, sensation and reflexes throughout Psychiatric: Normal mood and affect Lab/Radiology/Diagnostic Review: Laboratory review: Lab results in the last 24 hours: Recent Results (from the past 24 hour(s)) POCT glucose Collection Time: 12/20/23 5:07 PM Result Value Ref Range Glucose, POC 184 70 - 199 mg/dL POCT glucose Collection Time: 12/20/23 8:44 PM Result Value Ref Range Glucose, POC 165 70 - 199 mg/dL Glucose comment 1 Use This Result Glucose comment 2 RN/MD Notified Basic metabolic panel Collection Time: 12/21/23 4:45 AM Result Value Ref Range Sodium 134 (L) 135 - 145 mmol/L Potassium, pl 5.2 (H) 3.3 - 4.9 mmol/L Chloride 101 97 - 110 mmol/L CO2 20 (L) 22 - 32 mmol/L Anion gap 13 2 - 15 mmol/L BUN 79 (H) 6 - 25 mg/dL Creatinine 5.10 (H) 0.60 - 1.10 mg/dL Glucose 143 70 - 199 mg/dL Calcium 9.1 8.5 - 10.3 mg/dL CBC with auto differential Collection Time: 12/21/23 4:45 AM Result Value Ref Range WBC 12.9 (H) 3.8 - 9.9 K/cumm Hgb 8.1 (L) 11.9 - 15.5 g/dL Hct 25.4 (L) 35.6 - 45.5 % Plt 232 150 - 400 K/cumm MPV 11.0 9.1 - 12.3 fL RBC 2.67 (L) 3.90 - 5.20 M/cumm MCV 95.1 81.3 - 96.4 fL MCH 30.3 27.1 - 33.3 pg MCHC 31.9 (L) 32.3 - 35.7 g/dL RDW CV 14.6 11.1 - 14.9 % RDW SD 50.4 (H) 35.7 - 48.1 fL NRBC abs 0.00 0.00 - 0.01 K/cumm Differential, auto Collection Time: 12/21/23 4:45 AM Result Value Ref Range Neutrophil abs 10.8 (H) 1.5 - 6.5 K/cumm Imm gran abs 0.1 0.0 - 0.1 K/cumm Lymphocyte abs 1.2 0.8 - 3.3 K/cumm Monocyte abs 0.8 0.2 - 0.8 K/cumm Eosinophil abs 0.0 0.0 - 0.5 K/cumm Basophil abs 0.0 0.0 - 0.1 K/cumm Neutrophil pct 84.0 % Imm gran pct 0.5 % Lymphocyte pct 9.3 % Monocyte pct 6.1 % Eosinophil pct 0.0 % Basophil pct 0.1 % eGFR Collection Time: 12/21/23 4:45 AM Result Value Ref Range eGFR 8 (L) >=60 mL/min/1.73 m2 POCT glucose Collection Time: 12/21/23 7:41 AM Result Value Ref Range Glucose, POC 153 70 - 199 mg/dL Glucose comment 1 Use This Result Hepatitis B Surface Antigen Blood Collection Time: 12/21/23 11:05 AM Specimen: Blood Result Value Ref Range HepBsAg Nonreactive Nonreactive Hepatitis B surface antibody (immune status) Blood Collection Time: 12/21/23 11:05 AM Specimen: Blood Result Value Ref Range HBsAb (immune status) Reactive HBsAb (immune status) index >1,000.0 mIUnits/mL POCT glucose Collection Time: 12/21/23 12:19 PM Result Value Ref Range Glucose, POC 145 70 - 199 mg/dL Glucose comment 1 Use This Result Current Facility-Administered Medications Medication Dose Route Frequency Provider Last Rate Last Admin acetaminophen (TYLENOL) tablet 975 mg 975 mg oral Q8H Julieta Helms PA 975 mg at 12/20/23 0427 aspirin enteric coated tablet 81 mg 81 mg oral Daily Julieta Helms PA 81 mg at 12/20/23 08 atorvastatin (LIPITOR) tablet 40 mg 40 mg oral Nightly Julieta Helms PA 40 mg at 12/19/232155 benztropine (COGENTIN) tablet 1 mg 1 mg oral Nightly Julieta Helms PA 1 mg at 12/19/232155 benztropine (COGENTIN) tablet 2 mg 2 mg oral Daily Julieta Helms PA 2 mg at 12/20/23 08 calcium acetate(phosphat bind) (PHOSLO) capsule 667 mg 667 mg oral TID with meals Julieta Helms PA 667 mg at 12/20/23 08 Carrier Fluids for Secondary Infusion - 0.9% Sodium Chloride 30 mL intravenous PRN Julieta Helms PA carvediloL (COREG) tablet 3.125 mg 3.125 mg oral BID with meals (bkfst, dinner) Julieta Helms PA 3.125 mg at 12/20/23 08 dextrose (GLUTOSE) 40 % gel 15 g 15 g oral Q15 Min PRN Julieta Helms PA Or dextrose (D10W) 10% bolus 250 mL 250 mL intravenous Q15 Min PRN Julieta Helms PA docusate sodium (COLACE) capsule 100 mg 100 mg oral BID PRN Julieta Helms PA famotidine (PEPCID) tablet 10 mg 10 mg oral Daily Julieta Helms PA 10 mg at 12/20/23 08 ferrous sulfate tablet 325 mg 65 mg of elemental iron oral BID with meals (bkfst, dinner) Julieta Helms PA 325 mg at 12/20/23 08 fluticasone propionate (FLONASE) 50 mcg/actuation nasal spray 2 spray 2 spray each nostril Daily Julieta Helms PA 2 spray at 12/20/23 0816 glucagon injection 1 mg 1 mg intramuscular Q30 Min PRN Julieta Helms PA heparin 5,000 unit/mL injection 5,000 Units 5,000 Units subcutaneous Q8H SOL Julieta Helms PA 5,000 Units at 12/20/23 0428 hydrALAZINE (APRESOLINE) injection 10 mg 10 mg intravenous Q4H PRN Julieta Helms PA 10 mg at 12/20/23 0428 hydrALAZINE (APRESOLINE) tablet 25 mg 25 mg oral TID Audie Spencer MD 25 mg at 12/20/23 1036 insulin glargine (LANTUS, SEMGLEE) 100 unit/mL injection 15 Units 15 Units subcutaneous Nightly Julieta Helms PA 15 Units at 12/19/232155 insulin lispro (HumaLOG, ADMELOG) 100 unit/mL injection 4 Units 4 Units subcutaneous TID AC Julieta Helms PA 4 Units at 12/20/23 0814 lidocaine (LIDODERM) 5 % patch 3 patch 3 patch transdermal Q24H Julieta Helms PA 3 patch at 12/19/232156 ondansetron ODT (ZOFRAN-ODT) disintegrating tablet 4 mg 4 mg oral Q6H PRN Julieta Helms PA Or ondansetron (ZOFRAN) injection 4 mg 4 mg intravenous Q6H PRN Julieta Helms PA polyethylene glycol (MIRALAX) packet 17 g 17 g oral Daily PRN Julieta Helms PA ramelteon (ROZEREM) tablet 8 mg 8 mg oral Nightly PRN Julieta Helms PA 8 mg at 12/19/232155 risperiDONE (RisperDAL) tablet 2 mg 2 mg oral Nightly Julieta Helms PA 2 mg at 12/19/236 sodium chloride 0.9% flush 0.5-20 mL 0.5-20 mL intra-catheter Q8H SOL Julieta Helms PA 10 mL at12/20/238 sodium chloride 0.9% flush 0.5-20 mL 0.5-20 mL intra-catheter PRN Julieta Helms PA traMADoL (ULTRAM) tablet 50 mg 50 mg oral Q8H PRN Julieta Helms PA 50 mg at 12/20/23 0427 traMADoL (ULTRAM) tablet 50 mg 50 mg oral Once Julieta Helms PA Assessment/Plan Principal Problem: Syncope, unspecified syncope type Active Problems: Type 2 diabetes mellitus with diabetic neuropathy, with long-term current use of insulin (HCC) Primary hypertension Gastroesophageal reflux disease without esophagitis Schizoaffective disorder, bipolar type (CMS/HCC) (HCC) Parkinsonism (HCC) Anemia in chronic kidney disease, on chronic dialysis (HCC) ESRD on hemodialysis (CMS/HCC) (HCC) Pain in left arm Leukocytosis ESRD on dialysis (HCC) Anemia of renal disease Syncope and collapse/dialysis disequilibrium syndrome induced seizure - per neurology. Patient withno focal limb weakness CT head negative. Carotid ultrasound ordered and pending. 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 P.o. hydralazine and nifedipine in place. Apparently had some episodes of hypotension with systolics in the 70s on dialysis today. Nephrology documented stopping this. End-stage renal disease - patient did not finish dialysis yesterday. Nephrology has been consulted to see. Leukocytosis - patient afebrile, chest x-ray negative, UA unremarkable, blood cultures are negativeto date. Empiric ceftriaxone in place - will continue pending final cultures Anemia of chronic disease - no need for transfusion we will monitor. Left shoulder pain - improved with Ultram and Lidoderm patch - then worsened, given [place] with improvement. DVT prophylaxis - heparin Code status - full code Audie Spencer MD 4:19 PM Addendum Nurse paged stating that patient was having a blank stare and not responding well to questions. This was after dialysis. Went and evaluated the patient. Daughter at the bedside states that this is similar to what patient has had a dialysis. On exam patient had very dry mucous membrane. Given 250 bolus, nurse reported that she was more alert and was better able to answer come questions. Give another 250 bolus. Audie Spencer MD * Rohan Funes MD - 12/21/2023 3:55 PM CDT Nephrology Daily Progress Subjective Reason for follow up ESRD/HD. Interval History: Seen and examined on acute hemodialysis. Somewhat lethargic, hypotensive. Objective Vitals: 24hr Min/Max: Temp Min: 36.2 ??C (97.2 ??F) Max: 36.9 ??C (98.4 ??F) Pulse Min: 71 Max: 82 BP Min: 126/56 Max: 190/98 Resp Min: 14 Max: 18 SpO2 Min: 96 % Max: 99 % Most Recent: Vitals: 12/21/23 1254 BP: 170/77 Pulse: 74 Resp: 18 Temp: SpO2: Physical Exam: Constitutional: Appears well-developed and well-nourished. Head: Normocephalic and atraumatic. Eyes: EOM are normal. Neck: Normal range of motion. Cardiovascular: Normal rate and regular rhythm. Pulmonary/Chest: Effort normal and breath sounds normal. Abdominal: Soft. Bowel sounds are normal. Musculoskeletal: Normal range of motion. No edema. Neurological: Alert and oriented to person, place, and time. Skin: Skin is warm and dry. Psychiatric: Normal mood and affect. Assessment/Plan Principal Problem: Syncope, unspecified syncope type Active Problems: Type 2 diabetes mellitus with diabetic neuropathy, with long-term current use of insulin (HCC) Primary hypertension Gastroesophageal reflux disease without esophagitis Schizoaffective disorder, bipolar type (CMS/HCC) (HCC) Parkinsonism (HCC) Anemia in chronic kidney disease, on chronic dialysis (HCC) ESRD on hemodialysis (CMS/HCC) (HCC) Pain in left arm Leukocytosis ESRD on dialysis (HCC) Anemia of renal disease ESRD on hemodialysis Anemia of renal disease Recommendation --will plan dialysis tomorrow for a short session since he had only 20-30 minutes of dialysis yesterday. Mildly hyperkalemic today and hence will use a 2K bath. Will optimize fluid removal to blood pressure and tolerance with the initial goal of 1-1.5 L. she has anemia of CKD, likely on a long-acting erythropoietin analog in the dialysis unit but since hemoglobin is 8.9 g% will keep her on erythropoietin analog in the hospital. --neurology workup underway --discuss plan with family members at the bedside 7,1 Seen and examined on acute hemodialysis. Systolic blood pressure in the high 70s, discontinuing ultrafiltration, may need to administer IV fluids if BP does not improve. Was hypertensive previously. May need to adjust hydralazine and nifedipine if continues to have hypotensive episodes on dialysis.Continue current treatment otherwise. * Amanda Hodges PTA - 12/21/2023 1:00 PM CDT Physical Therapy 12/21/23 1300 PT Last Visit Rehab Only - Missed Reasons - All Disciplines Unavailable (Comment) (Pt receiving dialysis in her room, will be another 3 hours, will check back tomorrow.) * Felicity Matos OT - 12/21/2023 10:01 AM CDT Occupational Therapy 12/21/23 1001 General Chart Reviewed Yes Session Type Evaluation OT Received On 12/21/23 Safe Environment Arm band checked;Patient found sitting in chair;Gait belt utilized for all out of bed mobility Subjective Agreeable to Therapy Subjective Comment Pt stated, I have a lot of pain in my hand and shoulder. Additional Pertinent History 73 year old female presenting with syncope and collapse. PMHx of HTN, DM, neurpathy, anmeia, GERD, Alzheimers, OA, ESRD, Parkinsonism, and schizoaffective disorder. 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 Family/Caregiver Present No Occupational Therapy-Patient Goal return home with daughter at discharge Current Functional Status OT Functional Mobility Pt is seated in recliner chair upon OT arrival. Pt transfers sit>stand from chair with CGA for balance/safety. MIN verbal cues on hand placement and transfer technique. Pt tolerates approx 10 ft functional mobility at ww with CGA for balance/safety. Pt is fairly steady, but does require cues on ww mgmt and safety awareness. OT Self Care Pt able to don/doff L sock with MIN assist; decreased distal reach. Anticipate MIN assist for LE bathing/dressing and toileting. UE ROM/strength deficits and increased pain reported; anticipate MIN assist for UE dressing/bathing tasks. OT Cognition Impaired. Pt is alert and oriented to self/ and hospital . Pt unable to recall name of hospital, month/year. Pt follows one-step commands inconsistently, requires repetition and increased time for processing. Pt is pleasant and cooperative, but lethargic throughout eval. OT Communication Intact. Pt gives inconsistent responses to questions. Precautions Precautions Bed/Chair Alarm;Fall risk;Safety Home Living Type of Home House Home Layout One level Home Access Level entry Bathroom Shower/Tub Tub/shower unit Bathroom Toilet Raised Bathroom Equipment Grab bars in shower/tub Bathroom Accessibility Accessible Home Mobility Equipment-Available Wheeled walker Home Mobility Equipment-Currently Using Wheeled walker Additional Comments Pt has diagnosis of Alzheimers, all subjective info provided by pt today. Some home-living and PLOF information taken from previous OT eval on 11/02/2023. No family/caregiver in room at time of eval. Prior Function Level of [place] Independent with ADLs;Independent functional transfers;Independent with ambulation;Needs assistance with homemaking Lives With Daughter Receives Help From Family;rehabilitation attendant (Per OT eval on 11/02/23, daughter completed IADL's, managed her medications, and provided transportation. Pt also had career specialist who assisted with needs throughout the week.) Driving No Mode of Transportation Driven by others;Family ADL Assistance Independent Instrumental ADL (IADL) Assistance Needs assistance Prior Function Comments Pt has diagnosis of Alzheimers, all subjective info provided by pt today. Some home-living and PLOF information taken from previous OT eval on 11/02/2023. No family/caregiver in room at time of eval. ADL ADLS (WDL) X Pain Assessment Pain Assessment 0-10 Pain Score 9 Pain Location Hand (and shoulder) Pain Orientation Left Activity Tolerance Endurance Tolerates less than 10 min activity no significant change in vital signs Motor Planning Motor Planning (MOD cues to initiate and sequence tasks.) Hand Function Coordination Functional Gross Grasp Functional Reach/Grasp RUE Reach WFL LUE Reach WFL (increased pain reported in L shoulder and hand with ROM exercise.) RUE Assessment RUE Assessment WFL RUE Comments AROM against gravity, intact. Pt declines MMT due to pain. LUE Assessment LUE Assessment X LUE Comments Increased pain reported with AROM at all joints. Although AROM against gravity, intactat all joints. No MMT completed due to increased pain. No redness or swelling noted. Safe Environment End of Therapy Session Safe Environment End of Therapy Session Patient left in recliner;Chair alarm in place and activated;RN notified;Call light within reach;Overbed table within reach Assessment Prognosis Fair Problem List Decreased upper extremity strength;Decreased safe judgment during ADL;Decreased cognition;Decreased endurance;Decreased balance;Decreased functional mobility;Decreased gross motor control;Decreased ADL independence;Decreased IADL independence;Poor/Decreased functional positioning;Decreased frequency/variety of movement;Decreased ROM;Pain;Gait Problem List Comments Pt presents with generalized weakness and the above problem areas hindering occupational performance with daily routine. This pt will benefit from continued acute skilled OT services to maximize functional strength, endurance/activity tolerance, balance, safety, progressive mobility as tolerated, and self-care tasks in order to promote return to PLOF/daily routine. Plan Plan Plan of care initiated Recommendation/Plan OT Recommendation (S) Home Health OT;Home with family;Home with 24 hour supervision Patient at high risk for Falls;Readmission;Injury due to reduced functional status OT Recommendation/Plan Comments Recommend home health OT services at [place] to address the aforementioned problem areas in order to promote return to PLOF/daily routine. OT Frequency during current admission 3-5x/wk Treatment/Interventions during current admission ADL/IADL retraining;Balance Training;Bed mobility;Compensatory technique education;Endurance training;Equipment eval/education;Functional activity;Functional transfer training;Functional mobility training;Neuromuscular re-education;Relaxation techniques;Range of motion;Positioning;Parent/caregiver training and education;Strengthening;Therapeutic exercise;Therapeutic activity;Transfer training OT Equipment Recommended Shower chair;Grab bars OT - Next Appointment 01/04/24 OT Evaluation Complete Yes Time Calculation Start Time 1001 Stop Time 1020 Time Calculation (min) 19 min Multi-Disciplinary Problems (from Occupational Therapy) Active Problems Problem: OT [facility] Start Date: 12/21/23 Goal Start Date Expected End Date End Date OT [facility] 1 12/21/23 01/04/24 -- Goal Details: 1) LE ADL SBA WITH AD/AE PRN. Goal Start Date Expected End Date End Date OT [facility] 2 12/21/23 01/04/24 -- Goal Details: 2) FUNCTIONAL MOBILITY TO/FROM BATHROOM AND ALL ASPECTS TOILETING MODIFIED INDEP WITH DME. Goal Start Date Expected End Date End Date OT [facility] - Misc 3 12/21/23 01/04/24 -- Goal Details: 3) STAND AT SINK X4 MIN FOR ADL WITH SBA. Goal Start Date Expected End Date End Date OT STG - Misc 4 12/21/23 01/04/24 -- Goal Details: 4) PERFORM ITEM RETRIEVAL FROM HIGH/LOW POSITIONS WITH SBA. Education provided to the patient/caregiver regarding the role of occupational therapy, plan of care, goals of therapy, rationale for progressing mobility and use of call light. Fair understanding. 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 Interval History: Patient presented from dialysis prior to completing the same after having unresponsive state for 1-2 minutes per report. On presentation here her workup was relatively unremarkable with the exception of white count of 18. She is afebrile and has remained the same. UA chest x-ray CT head done are all unremarkable. Patient's major complaint was for left shoulder pain. Her blood pressure is elevated. Per report she did not finish dialysis due to her incident. At the time of this note she has been seen and evaluated by Neurology with concerns for dialysis disequilibrium syndromeinduced seizure. No injury plans to pursue EEG. At the time of my visit this a.m. patient tells herleft shoulder pain is doing better Ultram therapy. She denies any further episodes of passing out. Her blood pressure remains elevated. She denies any chest pain headache or blurred vision. Rest of the 14 point review of systems was negative Objective Vitals: 24hr Min/Max: Temp Min: 36.7 ??C (98.1 ??F) Max: 37 ??C (98.6 ??F) Pulse Min: 75 Max: 100 BP Min: 151/59 Max: 237/87 Resp Min: 16 Max: 19 SpO2 Min: 97 % Max: 100 % Most Recent : Vitals: 12/20/23 1102 BP: 165/65 Pulse: 75 Resp: 18 Temp: 36.7 ??C (98.1 ??F) SpO2: 98% I/O last 2 completed shifts: In: - Out: 800 [Urine:800] I/O this shift: In: 600 [P.O.:600] Out: - Physical Exam: General Appearance: Alert, cooperative, no distress, appears stated age, well developed, well nourished HEENT: Tunneled Dialysis catheter to the left neck noted. Lungs: Clear to auscultation bilaterally, respirations unlabored Cardiovascular: Regular rate and rhythm, S1 and S2 normal, no murmur, rub or gallop, no edema, pulses 2+ and symmetric to all extremeties Abdomen: Soft, non-tender, bowel sounds active all four quadrants, no masses,non-distended, no guarding or rebound Extremities: Extremities normal, atraumatic, no cyanosis or edema, no clubbing Skin: Skin color, texture, turgor normal, no rashes, lesions or bruising Neurologic: Normal strength, sensation and reflexes throughout Psychiatric: Normal mood and affect Lab/Radiology/Diagnostic Review: Laboratory review: Lab results in the last 24 hours: Recent Results (from the past 24 hour(s)) CBC with auto differential Collection Time: 12/19/23 2:29 PM Result Value Ref Range WBC 18.2 (H) 3.8 - 9.9 K/cumm Hgb 10.0 (L) 11.9 - 15.5 g/dL Hct 30.1 (L) 35.6 - 45.5 % Plt 245 150 - 400 K/cumm MPV 10.7 9.1 - 12.3 fL RBC 3.20 (L) 3.90 - 5.20 M/cumm MCV 94.1 81.3 - 96.4 fL MCH 31.3 27.1 - 33.3 pg MCHC 33.2 32.3 - 35.7 g/dL RDW CV 14.2 11.1 - 14.9 % RDW SD 48.6 (H) 35.7 - 48.1 fL NRBC abs 0.00 0.00 - 0.01 K/cumm Comprehensive metabolic panel Collection Time: 12/19/23 2:29 PM Result Value Ref Range Sodium 141 135 - 145 mmol/L Potassium, pl 4.2 3.3 - 4.9 mmol/L Chloride 103 97 - 110 mmol/L CO2 22 22 - 32 mmol/L Anion gap 16 (H) 2 - 15 mmol/L BUN 45 (H) 6 - 25 mg/dL Creatinine 3.50 (H) 0.60 - 1.10 mg/dL Glucose 186 70 - 199 mg/dL Calcium 9.6 8.5 - 10.3 mg/dL Bilirubin, total 0.2 0.1 - 1.2 mg/dL Protein, pl 7.3 6.5 - 8.5 g/dL Albumin 3.8 3.5 - 5.0 g/dL Alk phos 127 40 - 130 Units/L ALT 8 7 - 45 Units/L AST 12 10 - 45 Units/L Troponin T high-sensitivity series (baseline, 2hr, 4hr, 6hr) Collection Time: 12/19/23 2:29 PM Result Value Ref Range Trop T hs 34 (H) <=14 ng/L Differential, auto Collection Time: 12/19/23 2:29 PM Result Value Ref Range Neutrophil abs 16.2 (H) 1.5 - 6.5 K/cumm Imm gran abs 0.4 (H) 0.0 - 0.1 K/cumm Lymphocyte abs 0.9 0.8 - 3.3 K/cumm Monocyte abs 0.7 0.2 - 0.8 K/cumm Eosinophil abs 0.0 0.0 - 0.5 K/cumm Basophil abs 0.0 0.0 - 0.1 K/cumm Neutrophil pct 89.0 % Imm gran pct 2.0 % Lymphocyte pct 4.9 % Monocyte pct 3.9 % Eosinophil pct 0.0 % Basophil pct 0.2 % eGFR Collection Time: 12/19/23 2:29 PM Result Value Ref Range eGFR 13 (L) >=60 mL/min/1.73 m2 Influenza A/B, RSV, and COVID-19 PCR Nasopharyngeal Collection Time: 12/19/23 3:17 PM Specimen: Nasopharyngeal Result Value Ref Range COVID-19 RNA Negative Negative Influenza A RNA Negative Negative Influenza B RNA Negative Negative RSV RNA Negative Negative Urinalysis reflex to microscopic and culture Urine Collection Time: 12/19/23 3:17 PM Specimen: Urine Result Value Ref Range Color, ur Straw Yellow Clarity, ur Clear Clear Specific gravity, ur 1.011 1.003 - 1.030 pH, urine 7.0 Protein, ur ql 3+ (A) Negative Glucose, ur ql 3+ (A) Negative Ketones, ur Negative Negative Bilirubin, ur Negative Negative Blood, ur 1+ (A) Negative Urobilinogen, ur <2.0 <2.0 mg/dL Nitrite, ur Negative Negative Leukocyte esterase, ur Negative Negative UA reflex comment Reflex to microscopic UA will be performed. Urinalysis, microscopic only Collection Time: 12/19/23 3:17 PM Result Value Ref Range WBC, ur 0-5 0 - 5 /HPF RBC, ur 0-2 0 - 2 /HPF Epithelial cells, squamous, ur 1-5 0 - 5 /HPF Mucous, ur Present (A) Culture Reflex Comment Reflex conditions for urine culture (WBC >10) not met. Blood culture Blood Peripheral Collection Time: 12/19/23 4:14 PM Specimen: Peripheral; Blood Result Value Ref Range Report Preliminary Report: No growth to date. Blood culture Blood Peripheral Collection Time: 12/19/23 4:14 PM Specimen: Peripheral; Blood Result Value Ref Range Report Preliminary Report: No growth to date. Sepsis Lactate w/ Reflex Collection Time: 12/19/23 4:14 PM Result Value Ref Range Sepsis Lactate 1.9 0.7 - 2.0 mmol/L Troponin T high-sensitivity 4-hour Collection Time: 12/19/23 6:27 PM Result Value Ref Range Trop T hs 39 (H) <=14 ng/L Trop T hs delta 5 ng/L Trop T hs interp Equivocal POCT glucose Collection Time: 12/19/23 9:07 PM Result Value Ref Range Glucose, POC 265 (H) 70 - 199 mg/dL Glucose comment 1 Use This Result POCT glucose Collection Time: 12/20/23 2:30 AM Result Value Ref Range Glucose, POC 242 (H) 70 - 199 mg/dL Glucose comment 1 Use This Result Troponin T high-sensitivity 6-hour Collection Time: 12/20/23 3:59 AM Result Value Ref Range Trop T hs 35 (H) <=14 ng/L Trop T hs delta See Comment ng/L Trop T hs pct delta See Comment % Trop T hs interp See Comment Basic metabolic panel Collection Time: 12/20/23 3:59 AM Result Value Ref Range Sodium 139 135 - 145 mmol/L Potassium, pl 5.0 (H) 3.3 - 4.9 mmol/L Chloride 103 97 - 110 mmol/L CO2 22 22 - 32 mmol/L Anion gap 14 2 - 15 mmol/L BUN 61 (H) 6 - 25 mg/dL Creatinine 4.50 (H) 0.60 - 1.10 mg/dL Glucose 212 (H) 70 - 199 mg/dL Calcium 9.6 8.5 - 10.3 mg/dL CBC with auto differential Collection Time: 12/20/23 3:59 AM Result Value Ref Range WBC 15.0 (H) 3.8 - 9.9 K/cumm Hgb 8.9 (L) 11.9 - 15.5 g/dL Hct 27.0 (L) 35.6 - 45.5 % Plt 245 150 - 400 K/cumm MPV 11.1 9.1 - 12.3 fL RBC 2.85 (L) 3.90 - 5.20 M/cumm MCV 94.7 81.3 - 96.4 fL MCH 31.2 27.1 - 33.3 pg MCHC 33.0 32.3 - 35.7 g/dL RDW CV 14.6 11.1 - 14.9 % RDW SD 50.3 (H) 35.7 - 48.1 fL NRBC abs 0.00 0.00 - 0.01 K/cumm Differential, auto Collection Time: 12/20/23 3:59 AM Result Value Ref Range Neutrophil abs 12.9 (H) 1.5 - 6.5 K/cumm Imm gran abs 0.1 0.0 - 0.1 K/cumm Lymphocyte abs 1.3 0.8 - 3.3 K/cumm Monocyte abs 0.7 0.2 - 0.8 K/cumm Eosinophil abs 0.0 0.0 - 0.5 K/cumm Basophil abs 0.0 0.0 - 0.1 K/cumm Neutrophil pct 86.3 % Imm gran pct 0.4 % Lymphocyte pct 8.7 % Monocyte pct 4.5 % Eosinophil pct 0.0 % Basophil pct 0.1 % eGFR Collection Time: 12/20/23 3:59 AM Result Value Ref Range eGFR 10 (L) >=60 mL/min/1.73 m2 POCT glucose Collection Time: 12/20/23 7:24 AM Result Value Ref Range Glucose, POC 178 70 - 199 mg/dL Glucose comment 1 Use This Result Glucose comment 2 RN/MD Notified POCT glucose Collection Time: 12/20/23 11:58 AM Result Value Ref Range Glucose, POC 194 70 - 199 mg/dL Glucose comment 1 Use This Result Glucose comment 2 RN/MD Notified Current Facility-Administered Medications Medication Dose Route Frequency Provider Last Rate Last Admin acetaminophen (TYLENOL) tablet 975 mg 975 mg oral Q8H Julieta Helms PA 975 mg at 12/20/23 0427 aspirin enteric coated tablet 81 mg 81 mg oral Daily Julieta Helms PA 81 mg at 12/20/23 08 atorvastatin (LIPITOR) tablet 40 mg 40 mg oral Nightly Julieta Helms PA 40 mg at 12/19/232155 benztropine (COGENTIN) tablet 1 mg 1 mg oral Nightly Julieta Helms PA 1 mg at 12/19/232155 benztropine (COGENTIN) tablet 2 mg 2 mg oral Daily Julieta Helms PA 2 mg at 12/20/23 08 calcium acetate(phosphat bind) (PHOSLO) capsule 667 mg 667 mg oral TID with meals Julieta Helms PA 667 mg at 12/20/23 08 Carrier Fluids for Secondary Infusion - 0.9% Sodium Chloride 30 mL intravenous PRN Julieat Helms PA carvediloL (COREG) tablet 3.125 mg 3.125 mg oral BID with meals (bkfst, dinner) Julieta Helms PA 3.125 mg at 12/20/23 08 dextrose (GLUTOSE) 40 % gel 15 g 15 g oral Q15 Min PRN Julieta Helms PA Or dextrose (D10W) 10% bolus 250 mL 250 mL intravenous Q15 Min PRN Julieta Helms PA docusate sodium (COLACE) capsule 100 mg 100 mg oral BID PRN Julieta Helms PA famotidine (PEPCID) tablet 10 mg 10 mg oral Daily Julieta Helms PA 10 mg at 12/20/23 0813 ferrous sulfate tablet 325 mg 65 mg of elemental iron oral BID with meals (bkfst, dinner) Julieta Helms PA 325 mg at 12/20/23 08 fluticasone propionate (FLONASE) 50 mcg/actuation nasal spray 2 spray 2 spray each nostril Daily Julieta Helms PA 2 spray at 12/20/23 0816 glucagon injection 1 mg 1 mg intramuscular Q30 Min PRN Julieta Helms PA heparin 5,000 unit/mL injection 5,000 Units 5,000 Units subcutaneous Q8H SOL Julieta Helms PA 5,000 Units at 12/20/23 0428 hydrALAZINE (APRESOLINE) injection 10 mg 10 mg intravenous Q4H PRN Julieta Helms PA 10 mg at 12/20/23 0428 hydrALAZINE (APRESOLINE) tablet 25 mg 25 mg oral TID Audie Spencer MD 25 mg at 12/20/23 1036 insulin glargine (LANTUS, SEMGLEE) 100 unit/mL injection 15 Units 15 Units subcutaneous Nightly Julieta Helms PA 15 Units at 12/19/232155 insulin lispro (HumaLOG, ADMELOG) 100 unit/mL injection 4 Units 4 Units subcutaneous TID AC Julieta Helms PA 4 Units at 12/20/23 0814 lidocaine (LIDODERM) 5 % patch 3 patch 3 patch transdermal Q24H Julieta Helms PA 3 patch at 12/19/232156 ondansetron ODT (ZOFRAN-ODT) disintegrating tablet 4 mg 4 mg oral Q6H PRN Julieta Helms PA Or ondansetron (ZOFRAN) injection 4 mg 4 mg intravenous Q6H PRN Julieta Helms PA polyethylene glycol (MIRALAX) packet 17 g 17 g oral Daily PRN Julieta Helms PA ramelteon (ROZEREM) tablet 8 mg 8 mg oral Nightly PRN Julieta Helms PA 8 mg at 12/19/232155 risperiDONE (RisperDAL) tablet 2 mg 2 mg oral Nightly Julieta Helms PA 2 mg at 12/19/236 sodium chloride 0.9% flush 0.5-20 mL 0.5-20 mL intra-catheter Q8H SOL Julieta Helms PA 10 mL at12/20/238 sodium chloride 0.9% flush 0.5-20 mL 0.5-20 mL intra-catheter PRN Julieta Helms PA traMADoL (ULTRAM) tablet 50 mg 50 mg oral Q8H PRN Julieta Helms PA 50 mg at 12/20/23 0427 traMADoL (ULTRAM) tablet 50 mg 50 mg oral Once Julieta Helms PA Assessment/Plan Principal Problem: Syncope, unspecified syncope type Active Problems: Type 2 diabetes mellitus with diabetic neuropathy, with long-term current use of insulin ([facility]) Primary hypertension Gastroesophageal reflux disease without esophagitis Schizoaffective disorder, bipolar type (CMS/HCC) ([facility]) Parkinsonism ([facility]) Anemia in chronic kidney disease, on chronic dialysis ([facility]) ESRD on hemodialysis (CMS/[facility]) ([facility]) Left shoulder pain Leukocytosis Syncope and collapse/dialysis disequilibrium syndrome induced seizure - per neurology. Patient withno focal limb weakness CT head negative. Carotid ultrasound ordered and pending. Neurology to pursue EEG. Hypertension - elevated blood pressure. Patient did not finish dialysis, that may be contributing. We will give p.o. hydralazine and monitor. May benefit from calcium channel roz. End-stage renal disease - patient did not finish dialysis yesterday. Nephrology has been consulted to see. Leukocytosis - patient afebrile, chest x-ray negative, UA unremarkable, blood cultures pending. Empiric ceftriaxone in place. Anemia of chronic disease - no need for transfusion we will monitor. Left shoulder pain - improved with Ultram and Lidoderm patch. DVT prophylaxis - heparin Code status - full code Audie Spencer MD 11:58 AM * Lakia Hill, PT - 12/20/2023 11:09 AM CDT Physical Therapy 12/20/23 1109 General Chart Reviewed Yes Session Type Evaluation PT Received On 12/20/23 Safe Environment Arm band checked;Patient found in supine Subjective Agreeable to Therapy Additional Pertinent History Patient is a 73 year old female presenting with syncope and collapse. Patient has a PMH of HTN, DM, neurpathy, anmeia, GERD, Alzheimers, OA, ESRD, Parkinsonism, and schizoaffective disorder. Family/Caregiver Present No Physical Therapy-Patient Goal none stated. Precautions Precautions Fall risk;Bed/Chair Alarm Home Living Type of Home House Home Mobility Equipment-Currently Using Wheeled walker Additional Comments Patient reports that she lives with her daughter in a house with no stairs. States that her daughter helps her with all ADLs and IADLs. She uses a wheeled walker for ambuation. Prior Function Level of [place] Needs assistance with ADLs;Needs assistance with homemaking Lives With Daughter Receives Help From Family Driving No Mode of Transportation Driven by others Fall within the last 6 months No Pain Assessment Pain Assessment 0-10 Pain Score 4 Pain Location Shoulder Pain Orientation Left Cognition Orientation Oriented to person;Oriented to place Following Commands Follows all commands and directions without difficulty Compliance/Behavior Easy to engage Bed Mobility 1 Bed Mobility From 1 Supine Bed Mobility Type 1 To and from Bed Mobility to 1 Edge of bed Level of Assistance 1 Minimum Assist Bed Mobility Comments 1 Min A of 1 for scotting and Mod A of 1 for boost up in bed. Transfer 1 Transfer From 1 Sit Transfer Type 1 To and from Transfer to 1 Stand Transfer Device 1 Wheeled walker Transfer Level of Assistance 1 Minimum Assist Ambulation 1 Distance (ft) 1 10 Surface 1 Level tile Device 1 Wheeled walker Assistance 1 Minimum Assist Ambulation Comments 1 Patient reported left shoulder/hand pain post ambulation. RUE Assessment RUE Comments Limited shoulder flexion to shoulder height, pain with resisting flexion (4/5) and didnot wisht to have any other motions tested for strength due to pain. LUE Assessment LUE Comments Decreased L shoulder ROM overall, had difficulty lifting arm to reach walker when sitting. RLE Assessment RLE Comments ROM WFL, patient asked to take a break from MMT due to R shoulder pain and MMT was notcompleted for R LE. LLE Assessment LLE Comments ROM WFL, Gross strength 4+/5 Other Comments Other PT Comments Patient has diagnosis of Alzheimers, all subjective provided by patient today, nocaregiver in room at time of eval. Safe Environment End of Therapy Session Safe Environment End of Therapy Session Patient left supine in bed;RN notified;Call light within reach;Overbed table within reach Assessment Prognosis Good Problem List Gait deviations;Decreased strength;Decreased range of motion;Decreased mobility;Pain;Decreased ADLs Recommendation/Plan PT Recommendation/Plan (S) Home with family Patient at high risk for Falls;Injury due to decreased ability to care for self PT Frequency during current admission 5-7x/wk Treatment/Interventions during current admission Bed mobility;Gait training;Strengthening;Therapeutic activity;Therapeutic exercise;Transfer training PT - Next Appointment 12/28/23 Time Calculation Start Time 1109 Stop Time 1124 Time Calculation (min) 15 min Multi-Disciplinary Problems (from Physical Therapy) Active Problems Problem: PT Misc Start Date: 12/20/23 Goal Start Date Expected End Date End Date PT LTG - Misc 5 12/20/23 01/03/24 -- Goal Details: Patient to ambulate 100 feet with wheeled walker and CGA or less. Goal Start Date Expected End Date End Date PT STG - Misc 1 12/20/23 01/03/24 -- Goal Details: Patient to be independent with sit to stand transfer with wheeled walker. Goal Start Date Expected End Date End Date PT STG - Mis 2 12/20/23 01/03/24 -- Goal Details: Patient to be independent with all bed mobility. 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 Patient was left with all needs met and equipment intact. Mobility and ADL status posted at bedsideand within medical record. documented in this encounter H&P Notes * Julieta Helms PA - 12/19/2023 6:02 PM CDT Images from the original note were not included. History and Physical Date of Service: 12/19/2023 Date of Admission:12/19/2023 Primary Care Physician: Cherelle Corcoran MD [phone] CHIEF COMPLAINT: Patient is a 73 y.o. female with a PMHx significant for anemia, osteoarthritis, CHF, dementia, depression, diabetic neuropathy, GERD, hearing loss, hyperlipidemia, hypertension, osteomyelitis, chronic kidney disease on dialysis, schizophrenia, type 2 diabetes and left rotator cuff tear. Presents with complaints of 1-2 minute episode of syncope today while on dialysis HPI: Patient is on chronic hemodialysis or sees this on Thursday under the care of Dr. Ryan. Today patient had just started dialysis went she suddenly had a syncopal episode that lasted approximately 1-2 minutes. The patient denies that she was feeling poorly prior to this happening. She did not eat like normal this a.m.. She states she has had rhinorrhea the last 2 weeks but she alsostopped taking Flonase which he had been on due to fluid in her ear. Her biggest complaint is of left shoulder pain. She sustained a rotator cuff tear a few weeks ago and has been having increasing pain since she isn't taking Tylenol 1000 mg 3 times a day without relief she rates her pain at 9/10. She denies headaches. She did have chest pain a few days ago but that resolved no shortness of breath, cough or other upper respiratory symptoms. No fever or chills. She did have nausea this a.m. without vomiting. She still makes urine but denies urinary tract symptoms. She has had some swelling to the left side of her face over the last couple of weeks no redness or warmth. It is mildly uncomfortable at times she has had dry mouth History provided by patient and daughter Past Medical History: Diagnosis Date Anemia Arthritis CHF (congestive heart failure) ([facility]) ([facility]) CKD (chronic kidney disease) stage V requiring chronic dialysis ([facility]) Dementia ([facility]) Depression Diabetic neuropathy ([facility]) GERD (gastroesophageal reflux disease) HL (hearing loss) Hyperlipidemia Hypertension Movement disorder Osteomyelitis ([facility]) Rotator cuff tear, left Schizophrenia ([facility]) Type 2 diabetes mellitus ([facility]) Past Surgical History: Procedure Laterality Date SECTION [...] Father Diabetes Sister Diabetes Sister Diabetes Brother OBJECTIVE: Vitals: Arrival Vitals [12/19/23 1424] Temp 36.9 ??C (98.5 ??F) Pulse 85 Resp 19 BP (!) 237/87 SpO2 100 % Temp src Oral Heart Rate Source Patient Position BP Location FiO2 (%) O2 Therapy for the past 12 hrs: O2 Therapy 12/19/23 1800 None (Room air) 12/19/23 1643 None (Room air) 12/19/23 1515 None (Room air) 12/19/23 1424 None (Room air) Most Recent : Vitals: 12/19/23 1530 12/19/23 1600 12/19/23 1643 12/19/23 1800 BP: (!) 184/85 (!) 189/96 (!) 173/83 (!) 177/78 Pulse: 85 87 90 83 Resp: 19 16 16 17 Temp: TempSrc: SpO2: 100% 100% 100% Weight: Height: No intake/output data recorded. I/O this shift: In: - Out: 300 [Urine:300] Physical Exam: Physical Exam Vitals and nursing note reviewed. Constitutional: General: She is not in acute distress. Appearance: She is well-developed. HENT: Head: Normocephalic and atraumatic. Mouth/Throat: Mouth: Mucous membranes are dry. Pharynx: Oropharynx is clear. Comments: No erythema, dilatation or swelling at the area of Ilda's duct, there is mild swellingnoted along the parotid gland into the upper neck without erythema warmth. Eyes: General: No scleral icterus. Right eye: No discharge. Left eye: No discharge. Conjunctiva/sclera: Conjunctivae normal. Pupils: Pupils are equal, round, and reactive to light. Neck: Thyroid: No thyromegaly. Vascular: No carotid bruit. Cardiovascular: Rate and Rhythm: Normal rate and regular rhythm. Heart sounds: Normal heart sounds. No murmur heard. No friction rub. No gallop. Pulmonary: Effort: Pulmonary effort is normal. No respiratory distress. Breath sounds: Normal breath sounds. No wheezing or rales. Chest: Chest wall: No tenderness. Abdominal: General: Bowel sounds are normal. There is no distension. Palpations: Abdomen is soft. Tenderness: There is no abdominal tenderness. There is no guarding or rebound. Hernia: No hernia is present. Musculoskeletal: General: No tenderness or deformity. Normal range of motion. Cervical back: Normal range of motion and neck supple. Right lower leg: No edema. Left lower leg: No edema. Comments: No swelling noted to the upper extremities Lymphadenopathy: Cervical: No cervical adenopathy. Skin: General: Skin is warm and dry. Capillary Refill: Capillary refill takes less than 2 seconds. Findings: No rash. Neurological: Mental Status: She is oriented to person, place, and time. Cranial Nerves: No cranial nerve deficit. Sensory: No sensory deficit. Motor: No weakness. Psychiatric: Behavior: Behavior normal. Thought Content: Thought content normal. Judgment: Judgment normal. Lab/Radiology/Diagnostic Review: Recent Results (from the past 24 hour(s)) CBC with auto differential Collection Time: 12/19/23 2:29 PM Result Value Ref Range WBC 18.2 (H) 3.8 - 9.9 K/cumm Hgb 10.0 (L) 11.9 - 15.5 g/dL Hct 30.1 (L) 35.6 - 45.5 % Plt 245 150 - 400 K/cumm MPV 10.7 9.1 - 12.3 fL RBC 3.20 (L) 3.90 - 5.20 M/cumm MCV 94.1 81.3 - 96.4 fL MCH 31.3 27.1 - 33.3 pg MCHC 33.2 32.3 - 35.7 g/dL RDW CV 14.2 11.1 - 14.9 % RDW SD 48.6 (H) 35.7 - 48.1 fL NRBC abs 0.00 0.00 - 0.01 K/cumm Comprehensive metabolic panel Collection Time: 12/19/23 2:29 PM Result Value Ref Range Sodium 141 135 - 145 mmol/L Potassium, pl 4.2 3.3 - 4.9 mmol/L Chloride 103 97 - 110 mmol/L CO2 22 22 - 32 mmol/L Anion gap 16 (H) 2 - 15 mmol/L BUN 45 (H) 6 - 25 mg/dL Creatinine 3.50 (H) 0.60 - 1.10 mg/dL Glucose 186 70 - 199 mg/dL Calcium 9.6 8.5 - 10.3 mg/dL Bilirubin, total 0.2 0.1 - 1.2 mg/dL Protein, pl 7.3 6.5 - 8.5 g/dL Albumin 3.8 3.5 - 5.0 g/dL Alk phos 127 40 - 130 Units/L ALT 8 7 - 45 Units/L AST 12 10 - 45 Units/L Troponin T high-sensitivity series (baseline, 2hr, 4hr, 6hr) Collection Time: 12/19/23 2:29 PM Result Value Ref Range Trop T hs 34 (H) <=14 ng/L Differential, auto Collection Time: 12/19/23 2:29 PM Result Value Ref Range Neutrophil abs 16.2 (H) 1.5 - 6.5 K/cumm Imm gran abs 0.4 (H) 0.0 - 0.1 K/cumm Lymphocyte abs 0.9 0.8 - 3.3 K/cumm Monocyte abs 0.7 0.2 - 0.8 K/cumm Eosinophil abs 0.0 0.0 - 0.5 K/cumm Basophil abs 0.0 0.0 - 0.1 K/cumm Neutrophil pct 89.0 % Imm gran pct 2.0 % Lymphocyte pct 4.9 % Monocyte pct 3.9 % Eosinophil pct 0.0 % Basophil pct 0.2 % eGFR Collection Time: 12/19/23 2:29 PM Result Value Ref Range eGFR 13 (L) >=60 mL/min/1.73 m2 Influenza A/B, RSV, and COVID-19 PCR Nasopharyngeal Collection Time: 12/19/23 3:17 PM Specimen: Nasopharyngeal Result Value Ref Range COVID-19 RNA Negative Negative Influenza A RNA Negative Negative Influenza B RNA Negative Negative RSV RNA Negative Negative Urinalysis reflex to microscopic and culture Urine Collection Time: 12/19/23 3:17 PM Specimen: Urine Result Value Ref Range Color, ur Straw Yellow Clarity, ur Clear Clear Specific gravity, ur 1.011 1.003 - 1.030 pH, urine 7.0 Protein, ur ql 3+ (A) Negative Glucose, ur ql 3+ (A) Negative Ketones, ur Negative Negative Bilirubin, ur Negative Negative Blood, ur 1+ (A) Negative Urobilinogen, ur <2.0 <2.0 mg/dL Nitrite, ur Negative Negative Leukocyte esterase, ur Negative Negative UA reflex comment Reflex to microscopic UA will be performed. Urinalysis, microscopic only Collection Time: 12/19/23 3:17 PM Result Value Ref Range WBC, ur 0-5 0 - 5 /HPF RBC, ur 0-2 0 - 2 /HPF Epithelial cells, squamous, ur 1-5 0 - 5 /HPF Mucous, ur Present (A) Culture Reflex Comment Reflex conditions for urine culture (WBC >10) not met. Sepsis Lactate w/ Reflex Collection Time: 12/19/23 4:14 PM Result Value Ref Range Sepsis Lactate 1.9 0.7 - 2.0 mmol/L CT Chest Abdomen Pelvis WO Contrast Result Date: 12/19/2023 Narrative: EXAM DESCRIPTION: CT CHEST ABDOMEN PELVIS WO CONTRAST REASON FOR STUDY: Sepsis evaluation of unresponsiveness. She has a known history of end- stage renal disease on dialysis and was havingdialysis today during the session it is reported she had an episode of unresponsiveness for 60 90 seconds. She also has a known history diabetes, neuropathy, hypertension, schizoaffective disorder bipolar type, parkinsonism and movement disorder. She follows with Nephrology Dr. Ryan. She was seen in our facility on the diagnosed with urinary tract infection and started on antibiotics. She was sent on that day after an episode of diaphoresis during dialysis. TECHNIQUE: CT scan of the chest,abdomen, and pelvis performed without intravenous and without oral contrast using helical scanning technique. Reconstructed coronal and sagittal MPR images reviewed. All images stored on PACS. Automated exposure control was used as a dose optimization technique for this examination. COMPARISON: 11/20 FINDINGS: LUNGS: Clear. Trachea and major airways are patent. HEART/MEDIASTINUM/[place]: Heart size normal. Coronary artery calcifications. No enlarged lymph node. Thoracic inlet unremarkable. CHEST MSK: Lower cervical disc disease. Thoracic discs are well preserved. [id number] shoulder ar thritis. CHEST WALL: Unremarkable. LIVER/BILIARY: Liver unremarkable. Biliary tree normal in caliber. GALLBLADDER: Normal. SPLEEN: Normal. PANCREAS: Normal. ADRENAL GLANDS: Normal. KIDNEYS/URINARY TRACT: Unremarkable. GI: Stomach and small bowel appear normal. Moderate stool in the ascending and transverse colon. Appendix not seen. OTHER ABDOMINAL/PELVIS: Major vascular structures normal in caliber. No enlarged lymph node or free fluid. No enlarged lymph node or free fluid. MSK: Mild disc disease and facet arthropathy. BODY WALL: Unremarkable. IMPRESSION: No acute abnormality identified. THISIS AN ELECTRONICALLY VERIFIED FINAL REPORT 12/19/2023 5:04 PM - Electronically signed by Mir Brooke M.D. AR: KATHARINE Report ID: [id number] Reading Location: [id number] XR Chest 1 Vw Portable Result Date: 12/19/2023 Narrative: EXAM DESCRIPTION: XR CHEST 1 VIEW REASON FOR STUDY: Episode of unresponsiveness edematous at dialysis today. TECHNIQUE: Frontal radiographic view(s) of the chest. COMPARISON: Chest radiograph 12/03/2023; CT chest without contrast 12/03/2023. FINDINGS: LUNGS: No focal consolidation. No pleural effusion. No pneumothorax. HEART/MEDIASTINUM: Stable cardiomediastinal silhouette better evaluated on recent CT imaging. LINES/TUBES: Stable positioning of right chest dialysis catheter. BONES: No acute osseous abnormality. IMPRESSION: No acute cardiopulmonary process. THIS IS AN ELECTRONICALLY VERIFIED FINAL REPORT 12/19/2023 3:28 PM - Electronically signed by Redd Hendrickson M.D. CHANDA: CHANDA Report ID: [id number] Reading Location: [id number] CT Head WO Contrast Result Date: 12/19/2023 Narrative: EXAM DESCRIPTION: CT HEAD WO CONTRAST REASON FOR STUDY: Episode, lasting 1-1.5 minutes, of unresponsive while at dialysis today hen resolved with pt return to baseline mental status of [id number] hyperglycemia (EMS blood glucose 254). No provided history of trauma or inciting and/or aggravating events, though history of seizures. No provided surgical history. TECHNIQUE: Axial images acquired through the brain without intravenous contrast. Images stored on PACS. Automated exposure control was used as a dose optimization technique for this examination. COMPARISON: CT head without contrast 12/03/2023 and 11/17/2023; MRI brain without contrast 10/30/2023. FINDINGS: BRAIN: No acute intra-axial hemorrhage. No edema, mass effect, midline shift, or herniation. No evidence of acute territorial ischemia or infarct. There is periventricular- subcortical hypoattenuating white matter disease, nonspecific, though likely secondary to chronic microvascular ischemia. EXTRA-AXIAL SPACES: No extra-axial fluid collections. No unenhanced CT evidence of extra-axial mass. There is mild cerebral volume loss. There is intracranial calcific atherosclerotic disease. CALVARIUM: No acute calvarial fracture. SINUSES/MASTOIDS: No significant mucosal thickening and no fluid levels of the paranasal sinuses. Fluid about the ctvxf-olntpsa-emek-left dependent mastoid air cells. ORBITS: No acute abnormalit y. [place] ocular lenses replaced bilaterally. OTHER: No other significant abnormality. IMPRESSION: No acute intracranial process with chronic findings as above. THIS IS AN ELECTRONICALLY VERIFIED FINAL REPORT 12/19/2023 3:27 PM - Electronically signed by Redd Hendrickson M.D. CHANDA: CHANDA Report ID: [id number] Reading Location: [id number] FL Fluoro Guided Injection Shoulder Left Result Date: 12/18/2023 Narrative: EXAM DESCRIPTION: FL FLUORO GUIDED INJECTION SHOULDER LEFT REASON FOR STUDY: LEFT SHOULDER PAIN F/t: 10 seconds mGy: 0.4 Image count: 2 Shoulder pain. COMPARISON: 12/02/2023 radiographs RADIATION DOSE: Needle placement was documented with a fluoroscopic image. Dose: 9.3 uGym? Dose Area Product (DAP) TECHNIQUE/FINDINGS: Risk, benefits, and alternatives of the procedure were explained tothe patient and informed consent was obtained. The area was prepped and draped in the usual sterilefashion. A 22-gauge spinal needle was directed into the shoulder joint space and a small amount of Omnipaque 240 was injected to confirm intra-articular placement. 40 mg of Kenalog and 3 mL of [...] James Javier M.D. MZ: VALENTINA Report ID: [id number] Reading Location: [id number] CT Abdomen Pelvis WO Contrast Result Date: 12/03/2023 Narrative: EXAM DESCRIPTION: CT ABDOMEN PELVIS WO CONTRAST REASON FOR STUDY: AMS, abd pain Past medical significant for end-stage renal disease Seen her earlier today for left shoulder pain. Receivedcorticosteroid injection to shoulder per family history. Left here and went immediately to dialysiswhere she had an event where she was acutely sweaty. TECHNIQUE: CT scan of the abdomen and pelvis performed without intravenous and without oral contrast using helical scanning technique. Reconstructed coronal and sagittal MPR images reviewed. All images stored on PACS. Automated exposure control was used as a dose optimization technique for this examination. COMPARISON: 06/19/2022 FINDINGS: The sensitivity for detection of visceral lesions is diminished without the use of intravenous contrast.LOWER CHEST: No significant pulmonary abnormalities. No effusion. LIVER: Normal size. No identifiedcystic or solid masses. GALLBLADDER: Unremarkable BILE DUCTS: No intrahepatic or extrahepatic ductal dilatation. SPLEEN: Normal size. No focal lesions. PANCREAS: No identified cystic or solid masses.No significant calcifications. No adjacent inflammation or peripancreatic fluid collections. Pancreatic duct not dilated. ADRENALS: Normal. KIDNEYS/URINARY TRACT: No identified significant cystic or solid masses. No stones. No hydronephrosis or hydroureter. Urinary bladder is unremarkable. GI: Prominent amount of stool suggests constipation. No evidence of the obstruction is seen. The appendix isnot clearly abnormal. PERITONEUM: No ascites or free air. RETROPERITONEUM: No mass or adenopathy. REPRODUCTIVE: No significant abnormality. VASCULATURE: No abdominal aortic aneurysm. MUSCULOSKELETAL:No significant abnormality. OTHER: No other abnormality. IMPRESSION: Prominent amount of stool suggests constipation. No evidence of the obstruction is seen. THIS IS AN ELECTRONICALLY VERIFIED FINAL REPORT 12/03/2023 11:17 PM - Electronically signed by Salvador Marques M.D. KH: ROSA MARIA Report ID: [id number] Reading Location: [id number] CT Chest WO Contrast Result Date: 12/03/2023 Narrative: EXAM DESCRIPTION: CT CHEST WO CONTRAST REASON FOR STUDY: AMS brought in in via EMS from dialysis when the patient became pale, cool, and diaphoretic. Patient was earlier seen in this facility with shoulder pain. Patient AxO 1 as baseline. TECHNIQUE: CT scan of the chest performed withoutintravenous contrast using helical scanning technique. Reconstructed coronal [...] 7:45 PM - Electronically signed by Salvador CRANE: ROSA MARIA Report ID: [id number] Reading Location: [id number] CT Head WO Contrast Result Date: 12/03/2023 Narrative: EXAM DESCRIPTION: CT HEAD WO CONTRAST REASON FOR STUDY: AMS brought in in via EMS from dialysis when the patient became pale, cool, and diaphoretic. Patient was earlier seen in this facility with shoulder pain. Patient AxO 1 as baseline. TECHNIQUE: Axial images acquired through the brainwithout intravenous contrast. Images stored on PACS. Automated exposure control was used as a dose o ptimization technique for this examination. COMPARISON: 11/17/2023 FINDINGS: BRAIN: No hemorrhage, edema or mass effect. No recent infarct. Mild diffuse atrophy of the brain is again noted similar toprevious. EXTRA-AXIAL SPACES: No fluid collections. No masses. CALVARIUM: No fracture. SINUSES/MASTOIDS: Paranasal sinuses are clear. Minor fluid is seen in the mastoid air cells particularly on the right similar to previous. ORBITS: No significant abnormality. OTHER: No other significant abnormality. IMPRESSION: No acute intracranial findings. THIS IS AN ELECTRONICALLY VERIFIED FINAL REPORT 12/03/2023 7:43 PM - Electronically signed by Salvador CRANE: ROSA MARIA Report ID: [id number] Reading Location: [id number] XR Chest 1 View Result Date: 12/03/2023 Narrative: EXAM DESCRIPTION: XR CHEST 1 VIEW REASON FOR STUDY: SOB, pulmonary edema suspected Patient brought in in via EMS from dialysis when the patient became pale, cool, and diaphoretic. Patient was earlier seen in this facility with shoulder pain. Patient AxO 1 as baseline. TECHNIQUE: Frontal radiographic view(s) of the chest. COMPARISON: 10/29/2023 FINDINGS: Hazy bibasilar opacities, likelyoverlying soft tissue. No gross consolidation. No definite pulmonary edema. No large pleural effusion. Prominence of the right mediastinal contours is unchanged. The heart is normal in size. Right dialysis catheter tip projects over the region of the superior vena cava. IMPRESSION: 1. No gross acute cardiopulmonary abnormality. THIS IS AN ELECTRONICALLY VERIFIED FINAL REPORT 12/03/2023 5:32 PM - Electronically signed by Shane Miller M.D. AG: TON Report ID: [id number] Reading Location: [id number] XR Clavicle Left Complete Result Date: 12/02/2023 Narrative: EXAM: XR CLAVICLE LEFT COMPLETE DATE: 12/02/2023 4:30 PM CLINICAL HISTORY: Pain in the left clavicle, no injury. COMPARISON: None FINDINGS: Radiographs of left clavicle were obtained in 2 projections. There is no evidence of a fracture or dislocation. The soft tissues are unremarkable. Impression: No evidence of acute bony injury. Electronically signed by: Wilner Rodriguez M.D. XR Shoulder Left 2 or More Views [...] disease. Electronically signed by: Wilner Rodriguez M.D. ASSESSMENT/PLAN: Principal Problem: Syncope, unspecified syncope type Active Problems: Leukocytosis Type 2 diabetes mellitus with diabetic neuropathy, with long-term current use of insulin ([facility]) Primary hypertension Anemia in chronic kidney disease, on chronic dialysis ([facility]) ESRD on hemodialysis ([facility]) ([facility]) Left shoulder pain Gastroesophageal reflux disease without esophagitis Schizoaffective disorder, bipolar type ([facility]/HCC) ([facility]) Parkinsonism ([facility]) Resolved Problems: No resolved hospital problems. 1. Syncope/leukocytosis - patient had an episode of syncope while on hemodialysis. EKG showed normal sinus rhythm at 81 without acute changes. Troponin is only done x1 and was 34 we will repeat thesex4 total. Patient just had a 2D echo performed in October of 2023 which showed ejection fraction of 60-65%. No PFO. Grade 1 diastolic dysfunction. We will perform neuro checks q.4 hours. Patient is a fall risk. Orthostatic vital signs daily. Consult to Neurology Dr. Hanson. Chest x-ray was negative CT of head showed no acute intracranial process. CT of chest abdomen and pelvis showed no acute abnormality. Urinalysis appeared clean but culture was sent. We will draw blood cultures. Patient was started on Rocephin 1 g per the ED we will trend blood cultures to be sure there is not an underlying infection that we are missing. Repeat CBC and BMP daily in the a.m.. Obtain carotid Dopplers of the patient's neck due to syncope. My suspicion is the leukocytosis is likely reactive and the patient's episode of syncope was likely due to fluid displacement during dialysis. Telemetry with constant SpO2 monitoring. Oxygen p.r.n. to maintain sats above 90% 2. Type 2 diabetes with nephropathy-patient is on Lantus 18 units at night will decrease this to 15units at night. She is on 4 units of lispro t.i.d. with a sliding scale we will continue this. Dietwill be diabetic and renal 3. Hypertension-patient's blood pressure was significantly elevated upon arrival at 237/87. She wasgiven hydralazine 10 mg IV and currently blood pressure is 173/83. We will continue hydralazine 10 mg IV q.4 hours p.r.n. systolic blood pressure over 180 and/or diastolic blood pressure over 100. Patient just was started on Coreg 3.125 mg b.i.d. and her 1st dose will be today as she did not take it this morning. We will monitor. 4. Anemia in chronic kidney disease/end-stage renal disease on dialysis as above dialysis is received on Thursday and Thursday. She only had about 15 minutes of dialysis today prior to passing out. Dr. Pitts is on for Dr. Marilyn ch and was consulted. Potassium normal at 4.2 as well as calcium at 9.6. No imminent need for dialysis at this time but will see if Dr. Pitts feels she requires it earlier than Thursday. 5. Left shoulder pain-patient was just told she had a rotator cuff tear. She has had 2 injections 1yesterday and she has had no relief. She uses 1 lidocaine patch a day will increase this to 3 per day around her shoulder to try and help with discomfort she can continue Tylenol 1000 mg t.i.d. and Pancho add tramadol 50 mg t.i.d. to see if this helps. He was told surgery is not an option and physical therapy we will be starting soon. 6. GERD-patient is on Pepcid 10 mg daily continue this 7. Schizoaffective disorder - patient is on risperidone 2 mg nightly continue this. 8. Parkinsonism-on Cogentin 1 tablet twice a day 1 mg continue this 9. Parotid gland swelling - recommend lemon drops to be used to try and help with swelling. There is no sign of erythema or warmth. No sign of infection. Spoke with Dr. Spencer concerning this may be aside effect of psychiatric medication Prior Spoke with the patient and her daughter regarding diagnosis, treatment and plan. They agree with the plan. Advance Care Planning In the event of a cardiopulmonary arrest the patient would like everything done to save her life. She is a full code. ESTIMATED LENGTH OF STAY: > 2 midnigths My total encounter time on 12/19/2023 was 64 minutes which was spent in the activities documented inthe note. This includes time spent prior to the visit and after the visit in direct care of the patient. This time does not include time spent in any separately reportable services. Medical Decision Making Complexity: moderate DVT prophylaxis:heparin PT/OT: ordered Consult to Case Management and/or Safety Teacher Voice recognition software MModal Fluency Direct may have been used to dictate and transcribe this document. Talk Show Host variances may occur. Despite proofreading, typographical errors may occur. ANAY Wolf 12/19/2023 6:10 PM For patients or family members viewing this note through [employer]: This note was written as a communication tool between healthcare providers and may contain technical language, terminology and abbreviations that is difficult to interpret without advanced medical training. If you have questions or concerns regarding what is written in this note, please request to speak with the primary medical team taking care of you or your family member. Cosigned by Audie Spencer MD at 12/21/2023 11:05 AM CDT documented in this encounter Procedure Notes * Wilner Buckley MD - 12/22/2023 2:56 PM CDTAssociated Order(s): EEG Reason for exam: passing out during dialysis Technical: This is a digitally recorded electroencephalogram. It was just over 30 minutes long. Theinternational 10-20 electrode placement system is used for [...] suggests diffuse cerebral dysfunction, as can be seenin encephalopathy due to various etiologies. No focal slowing no seizure like activity was observed. Correlation with clinical findings is needed. documented in this encounter Consult Notes * Xenia Slade LCSW - 12/21/2023 2:46 PM CDTAssociated Order(s): IP CONSULT TO SOCIAL WORK Acknowledge Consult [employer]ORY [employer]ER consulted for Health disparity and social determinants of health. Pt from home with daughter. OT recs for home with HHC/family/24 hr supervision. Anticipate return home with daughter at pa. No social service needs identified at this time. CM following for discharge planning and progression of care and can consult ss if needs arise. Xenia Slade LCSW 2:46 PM 12/21/2023 * Kenyetta Morgan MD - 12/20/2023 9:55 AM CDTAssociated Order(s): IP CONSULT TO NEUROLOGY Images from the original note were not included. NEUROLOGY CONSULTATION Reason for Consult: syncope History of Present Illness: Sixto Chakraborty is a 73 yo female who presents via EMS for evaluation of unresponsiveness. She has history of ESRD on dialysis and was having dialysis today. During the session, it was reported that shehad an episode of unresponsiveness for 60-90 seconds. Hx of DM, neuropathy, HTN, schizoaffective disorder, bipolar disorder, parkinsonism. She was recently in the ED on the and diagnosed with UTI and started on antibiotics. Neurology consulted. Past Medical History: Diagnosis Date Anemia Arthritis CHF (congestive heart failure) ([facility]) (HCC) CKD (chronic kidney disease) stage V requiring chronic dialysis ([facility]) Dementia ([facility]) Depression Diabetic neuropathy ([facility]) GERD (gastroesophageal reflux disease) HL (hearing loss) Hyperlipidemia Hypertension Movement disorder Osteomyelitis ([facility]) Rotator cuff tear, left Schizophrenia ([facility]) Type 2 diabetes mellitus ([facility]) Past Surgical History: Procedure Laterality Date SECTION Right right foot EYE SURGERY cataracts FLUORO GUIDED INJECTION SHOULDER LEFT Left 12/18/2023 TOE AMPUTATION Right 01/06/2020 4th toe amp/ foot debridement/ Dr. Anat Pelayo TUNNELED LINE PLACEMENT > 5 YEARS N/A 10/15/2023 HOME MEDICATIONS : aspirin 81 mg enteric coated tablet atorvastatin (LIPITOR) 40 mg tablet benztropine (COGENTIN) 1 mg tablet calcium acetate,phosphat bind, (PHOSLO) 667 mg capsule docusate sodium (COLACE) 100 mg capsule famotidine (PEPCID) 10 mg tablet ferrous sulfate 325 mg (65 mg of elemental iron) tablet insulin glargine 100 unit/mL (3 mL) pen for injection insulin lispro (HumaLOG, ADMELOG) 100 unit/mL vial for injection lidocaine (ASPERCREME) 4 % adhesive patch,medicated risperiDONE (RisperDAL) 1 mg tablet acetaminophen 500 mg capsule blood-glucose sensor (FreeStyle Madhav 3 Sensor) device carvediloL (COREG) 3.125 mg tablet flash glucose scanning reader misc flash glucose sensor (FreeStyle Madhav 2 Sensor) kit fluticasone propionate (FLONASE) 50 mcg/actuation nasal spray FreeStyle Madhav 3 Douglas misc pen needle, diabetic (Easy Touch) 32 gauge x 5/32 needle polyethylene glycol (MIRALAX) 17 gram/dose bulk powder omeprazole (PriLOSEC) 20 mg capsule Current Facility-Administered Medications Medication Dose Route Frequency Provider Last Rate Last Admin acetaminophen (TYLENOL) tablet 975 mg 975 mg oral Q8H Julieta Helms PA 975 mg at 12/20/23 0427 aspirin enteric coated tablet 81 mg 81 mg oral Daily Julieta Helms PA 81 mg at 12/20/23 08 atorvastatin (LIPITOR) tablet 40 mg 40 mg oral Nightly Julieta Helms PA 40 mg at 12/19/232155 benztropine (COGENTIN) tablet 1 mg 1 mg oral Nightly Julieta Helms PA 1 mg at 12/19/232155 benztropine (COGENTIN) tablet 2 mg 2 mg oral Daily Julieta Helms PA 2 mg at 12/20/23 08 calcium acetate(phosphat bind) (PHOSLO) capsule 667 mg 667 mg oral TID with meals Julieta Helms PA 667 mg at 12/20/23 08 Carrier Fluids for Secondary Infusion - 0.9% Sodium Chloride 30 mL intravenous PRN Julieta Helms PA carvediloL (COREG) tablet 3.125 mg 3.125 mg oral BID with meals (bkfst, dinner) Julieta Helms PA 3.125 mg at 12/20/23 0813 dextrose (GLUTOSE) 40 % gel 15 g 15 g oral Q15 Min PRN Julieta Helms PA Or dextrose (D10W) 10% bolus 250 mL 250 mL intravenous Q15 Min PRN Julieta Helms PA docusate sodium (COLACE) capsule 100 mg 100 mg oral BID PRN Julieta Helms PA famotidine (PEPCID) tablet 10 mg 10 mg oral Daily Julieta Helms PA 10 mg at 12/20/23 0813 ferrous sulfate tablet 325 mg 65 mg of elemental iron oral BID with meals (bkfst, dinner) Julieta Helms PA 325 mg at 12/20/23 0813 fluticasone propionate (FLONASE) 50 mcg/actuation nasal spray 2 spray 2 spray each nostril Daily Julieta Helms PA 2 spray at 12/20/23 0816 glucagon injection 1 mg 1 mg intramuscular Q30 Min PRN Julieta Helms PA heparin 5,000 unit/mL injection 5,000 Units 5,000 Units subcutaneous Q8H SOL Julieta Helms PA 5,000 Units at 12/20/23 0428 hydrALAZINE (APRESOLINE) injection 10 mg 10 mg intravenous Q4H PRN Julieta Helms PA 10 mg at 12/20/23 0428 insulin glargine (LANTUS, SEMGLEE) 100 unit/mL injection 15 Units 15 Units subcutaneous Nightly Julieta Helms PA 15 Units at 12/19/23 2156 insulin lispro (HumaLOG, ADMELOG) 100 unit/mL injection 4 Units 4 Units subcutaneous TID AC Julieta Helms PA 4 Units at 12/20/23 0814 lidocaine (LIDODERM) 5 % patch 3 patch 3 patch transdermal Q24H Julieta Helms PA 3 patch at 12/19/232156 ondansetron ODT (ZOFRAN-ODT) disintegrating tablet 4 mg 4 mg oral Q6H PRN Julieta Helms PA Or ondansetron (ZOFRAN) injection 4 mg 4 mg intravenous Q6H PRN Julieta Helms PA polyethylene glycol (MIRALAX) packet 17 g 17 g oral Daily PRN Julieta Helms PA ramelteon (ROZEREM) tablet 8 mg 8 mg oral Nightly PRN Julieta Helms PA 8 mg at 12/19/23 2156 risperiDONE (RisperDAL) tablet 2 mg 2 mg oral Nightly Julieta Helms PA 2 mg at 12/19/23 2216 sodium chloride 0.9% flush 0.5-20 mL 0.5-20 mL intra-catheter Q8H SOL Julieta Helms PA 10 mL at12/20/23 0428 sodium chloride 0.9% flush 0.5-20 mL 0.5-20 mL intra-catheter PRN Julieta Helms PA traMADoL (ULTRAM) tablet 50 mg 50 mg oral Q8H PRN Julieta Helms PA 50 mg at 12/20/23 0427 traMADoL (ULTRAM) tablet 50 mg 50 mg oral Once Julieta Helms PA No Known Allergies Social History Tobacco Use [...] Diabetes Sister Diabetes Brother Review of Systems: Constitutional: Negative for chills, fever, and malaise. HENT: Negative for congestion, ear pain, and sore throat. Eyes: Negative for blurred vision and discharge. Respiratory: Negative for cough, sputum production, and shortness of breath. Cardiovascular: Negative for chest pain, palpitations, and leg swelling. Gastrointestinal: Negative for abdominal pain, diarrhea, nausea, and vomiting. Genitourinary: Negative for dysuria and frequency. Musculoskeletal: Negative for back pain and joint pain. Skin: Negative for itching and rash. Neurological: As per HPI. Endocrine: Negative for polydipsia, polyuria, polyphagia. Psychiatric: Negative for depression or anxiety. Vitals: 24 hr Min/Max: Temp Min: 36.9 ??C (98.4 ??F) Max: 37 ??C (98.6 ??F) Pulse Min: 76 Max: 100 BP Min: 151/59 Max: 237/87 Resp Min: 16 Max: 19 SpO2 Min: 97 % Max: 100 % Most Recent: Vitals: 12/20/23 0729 BP: (!) 178/62 Pulse: 83 Resp: 18 Temp: 37 ??C (98.6 ??F) SpO2: 100% Height: 154.9 cm (5' 1 ) Weight: 60.6 kg (133 lb 9.6 oz) BMI (Calculated): 25.3 I/O last 2 completed shifts: In: - Out: 800 [Urine:800] I/O this shift: In: 240 [P.O.:240] Out: - Physical Exam General: No acute distress Constitutional: Nourished, appears older than stated age HEENT: Normocephalic, atraumatic, neck supple Respiratory: Symmetrical chest movement, no increased respiratory effort Cardiovascular: Regular rate and rhythm, 2+ pulses bilaterally, no pedal edema Abdomen: Soft, nontender, nondistended Neurological Exam: MS: Awake, alert, oriented x 2 (self, location), unable to state the year, following all commands CN: Non-focal CN II-XII Motor: Normal tone and bulk, no tremor, 5/5 strength bilaterally, except LUE 2/5 Sensory: Intact to light touch bilaterally Coordination: FTN normal on right Reflexes: DTR hypoactive, Babinski absent Gait: Not assessed due to safety Diagnostic Review: Labs and imaging were reviewed. Lab Results Component Value Date HGBA1C 8.2 (H) 10/08/2023 , Lab Results Component Value Date LDLCALC 50 10/30/2023 , Lab Results Component Value Date TSH 1.52 09/02/2021 Results for orders placed or performed during the hospital encounter of 12/19/23 CT Head WO Contrast Narrative EXAM DESCRIPTION: CT HEAD WO CONTRAST REASON FOR STUDY: Episode, lasting 1-1.5 minutes, of unresponsive while at dialysis today hen resolved with pt return to baseline mental status of Ax1 with hyperglycemia (EMS blood glucose 254). No provided history of trauma or inciting and/or aggravating events, though history of seizures. No provided surgical history. TECHNIQUE: Axial images acquired through the brain without intravenous contrast. Images stored on PACS. Automated exposure control was used as a dose optimization technique for this examination. COMPARISON: CT head without contrast 12/03/2023 and 11/17/2023; MRI brain without contrast 10/30/2023. FINDINGS: BRAIN: No acute intra-axial hemorrhage. No edema, mass effect, midline shift, or herniation. No evidence of acute territorial ischemia or infarct. There is periventricular-subcortical hypoattenuating white matter disease, nonspecific, though likely secondary to chronic microvascular ischemia. EXTRA-AXIAL SPACES: No extra-axial fluid collections. No unenhanced CT evidence of extra-axial mass. There is mild cerebral volume loss. There is intracranial calcific atherosclerotic disease. CALVARIUM: No acute calvarial fracture. SINUSES/MASTOIDS: No significant mucosal thickening and no fluid levels of the paranasal sinuses. Fluid about the [id number]-[id number]-left dependent mastoid air cells. ORBITS: No acute abnormality. [place] ocular lenses replaced bilaterally. OTHER: No other significant abnormality. IMPRESSION: No acute intracranial process with chronic findings as above. THIS IS AN ELECTRONICALLY VERIFIED FINAL REPORT 12/19/2023 3:27 PM - Electronically signed by Redd Hendrickson M.D. CHANDA: CHANDA Report ID: [id number] Reading Location: [place] [id number] Results for orders placed or performed during the hospital encounter of 10/29/23 MRI Brain WO Contrast Narrative EXAM DESCRIPTION: MRI BRAIN WO CONTRAST REASON FOR STUDY: TIA, initial exam, Neuro deficit, acute, stroke suspected Admit with PMHx significant for HTN, ESRD on HD, HLD, mild dementia AOx 4 at baseline. Presents to the ED with a chief complaint of acute confusion R/o stroke TECHNIQUE: Multiplanar imaging includes non-contrasted T1, T2, FLAIR, and diffusion with ADC map sequences. Additional sequence(s) sensitive to blood products. Images stored on PACS. COMPARISON: 10/29/[address] FINDINGS: CEREBRUM: No hemorrhage, edema, or mass effect. Unremarkable ventricles WHITE MATTER: There is moderate periventricular and pontine T2/FLAIR hyperintense white matter disease, nonspecific, though likely secondary to chronic microvascular ischemia. POSTERIOR FOSSA: Brainstem and cerebellum appear unremarkable. DIFFUSION IMAGING: There is a small focus of diffusion weighted hyperintensity in the posterior right temporal lobe with mild associated ADC hypointensity. This is compatible with an acute to subacute infarction. There is mild associated FLAIR signal hyperintensity. EXTRAAXIAL SPACES: No hemorrhage. No mass. BRAIN VOLUME: Within normal limits for age. PITUITARY: Unremarkable. VASCULATURE: No flow disturbance identified. ORBITS: No masses. Globes normal. PARANASAL SINUSES AND MASTOIDS: There are bilateral mastoid effusions . Mild ethmoid sinus mucosal thickening OTHER: There is upper cervical degenerative disc disease. Spinal canal stenosis appears at least moderate at C3-C4, but is poorly assessed on the current protocol. This could be further assessed with cervical spine MRI. IMPRESSION: Small acute to subacute infarct in the posterior right temporal lobe. Moderate burden of periventricular and pontine T2/FLAIR hyperintense white matter disease, nonspecific, though likely secondary to chronic microvascular ischemia. Upper cervical degenerative disc disease with at least moderate spinal canal stenosis at C3-C4, poorly assessed on the current protocol. This could be further assessed with cervical spine MRI. Bilateral mastoid effusions THIS IS AN ELECTRONICALLY VERIFIED FINAL REPORT 10/30/2023 8:29 AM - Electronically signed by James Javier M.D. MZ: VALENTINA Report ID: [id number] Reading Location: [place] [id number] EEG Narrative Wilner Buckley MD 10/31/2023 1:25 PM Reason for exam: passing out episodes Technical: This is a digitally recorded electroencephalogram. It was just over 32 minutes long. The international 10-20 electrode placement system is used for scalp electrode placement. Eighteen channels of scalp EEG are recorded. One channel was used for EOG. Another channel was used for ECG. The data are stored digitally and reviewed in reformatted montages for optimal display. Background: Background is primarily admixture of alpha and theta range frequencies seen, it is relatively symmetric bilaterally. It was reactive to eye opening and closure. Intermittently seen delta range slowing bilaterally. Description: No focal slowing was seen. No seizure like activity was observed during this recording. Patient entered into periods of drowsiness and light sleep. Hyperventilation was performed without any additional abnormalities. Photic stimulation was performed without any additional abnormalities. Impression: Abnormal EEG. Generalized slowing suggests diffuse cerebral dysfunction, as can be seen encephalopathy due to various etiologies. No focal slowing no seizure like activity was observed. Correlation with clinical findings is needed. *Note: Due to a large number of results and/or encounters for the requested time period, some results have not been displayed. A complete set of results can be found in Results Review. ASSESSMENT & PLAN Syncope Dialysis Disequilibrium Syndrome Induced Seizure Recent Stroke - R Posterior Temporal Lobe (10/2023) Chronic Cerebrovascular Ischemic Disease - CT head negative for acute intracranial process, revealed chronic microvascular disease - MRI brain without contrast on 10/2023 revealed a small acute to subacute infarct in the posterior right temporal lobe - ECHO = EF 60-65%, no PFO, left atrial size normal - Carotid ultrasound - negative for high grade stenosis of carotid/vertebral arteries - LDL = 50 - Continue home ASA 81 mg daily and high intensity statin therapy - Recommend routine EEG - Neuro checks Q4H - Seizure, fall, aspiration precautions Kenyetta Morgan MD [facility] Neurology My total encounter time on 12/20/2023 was 75 minutes which was spent in the activities documented inthe note. This includes time spent prior to the visit and after the visit in direct care of the patient. This time does not include time spent in any separately reportable services. * Tucker Pitst MD - 12/20/2023 8:23 AM CDTAssociated Order(s): IP CONSULT TO NEPHROLOGY Nephrology Consult Reason for Consult: ESRD Requesting Provider: Dr. Sofia Subjective Patient is a 73 y.o. female with chief complaint of altered mental status. HPI: 73-year-old female with ESRD on hemodialysis on a Thursday, , Thursday schedule under the care of Dr. Ryan at [facility] in [place] was at dialysis yesterday when she was thought to have altered mental status and possibly a seizure due to which dialysis was discontinued after 20-30 minutes and she was sent to the ER. She has been admitted for further workup and neurology workup is underway. She has underlying dementia and schizophrenia. Family is at the bedside noting that she has had many such episodes of high and low pressures during dialysis. He started dialysis about 2 months ago through a tunneled hemodialysis catheter. Currently she denies any shortness of breath, nausea or vomiting. Past Medical History: Diagnosis Date Anemia Arthritis CHF (congestive heart failure) ([facility]/HCC) ([facility]) CKD (chronic kidney disease) stage V requiring chronic dialysis ([facility]) Dementia ([facility]) Depression Diabetic neuropathy ([facility]) GERD (gastroesophageal reflux disease) HL (hearing loss) Hyperlipidemia Hypertension Movement disorder Osteomyelitis ([facility]) Rotator cuff tear, left Schizophrenia ([facility]) Type 2 diabetes mellitus ([facility]) Past Surgical History: Procedure Laterality Date SECTION Right right foot EYE SURGERY cataracts FLUORO GUIDED INJECTION SHOULDER LEFT Left 12/18/2023 TOE AMPUTATION Right 01/06/2020 4th toe amp/ foot debridement/ Dr. Anat Pelayo TUNNELED LINE PLACEMENT > 5 YEARS N/A 10/15/2023 Medications Prior to Admission Medication Sig Dispense Refill Last Dose aspirin 81 mg enteric coated tablet Take 1 tablet (81 mg total) by mouth daily 30 tablet 11 12/19/2023 atorvastatin (LIPITOR) 40 mg tablet Take 1 tablet (40 mg total) by mouth nightly 30 tablet 11 12/18/2023 benztropine (COGENTIN) 1 mg tablet Take 1 tablet (1 mg total) by mouth nightly (Patient taking differently: Take 1 tablet (1 mg total) by mouth 2 mg every morning and 1 mg at night) 30 tablet 11 12/19/2023 calcium acetate,phosphat bind, (PHOSLO) 667 mg capsule TAKE 1 CAPSULE(667 MG) BY MOUTH THREE TIMES DAILY WITH MEALS 270 capsule 0 12/19/2023 docusate sodium (COLACE) 100 mg capsule Take 1 capsule (100 mg total) by mouth every 12 (twelve) hours (Patient taking differently: Take 1 capsule (100 mg total) by mouth every 12 (twelve) hours prn)60 capsule 0 Past Week famotidine (PEPCID) 10 mg tablet Take 1 tablet (10 mg total) by mouth daily 12/19/2023 ferrous sulfate 325 mg (65 mg of elemental iron) tablet Take 1 tablet (65 mg of elemental iron total) by mouth 2 (two) times a day 12/19/2023 insulin glargine 100 unit/mL (3 mL) pen for injection Inject 18 Units under the skin nightly 12/18/2023 insulin lispro (HumaLOG, ADMELOG) 100 unit/mL vial for injection Inject 4 Units under the skin 3 (three) times a day before meals Gets 4 units at baseline then 1 unit for every 50 over 150 12/19/2023 lidocaine (ASPERCREME) 4 % adhesive patch,medicated Place 1 patch on the skin daily as needed to lower back 12/19/2023 risperiDONE (RisperDAL) 1 mg tablet Take 1 tablet (1 mg total) by mouth 2 (two) times a day (Patient taking differently: Take 2 tablets (2 mg total) by mouth nightly Pt to take 1.5 mg nightly for 14 days starting 12/02/23 then increase to 2 mg nightly) 60 tablet 11 12/18/2023 acetaminophen 500 mg capsule Take 2 capsules (1,000 mg total) by mouth 3 (three) times a day as needed for mild pain (pain scale 1-4) blood-glucose sensor (FreeStyle Madhav 3 Sensor) device Use for continuous glucose monitoring. Change sensor every 14 days 6 each 3 carvediloL (COREG) 3.125 mg tablet Take 1 tablet (3.125 mg total) by mouth 2 (two) times a day withmeals 180 tablet 3 flash glucose scanning reader [facility] Use Madhav 3 reader to scan Madhav 3 sensor 1 each 0 flash glucose sensor (FreeStyle Madhav 2 Sensor) kit Use to continually monitor glucose, change every 14 days 6 kit 3 fluticasone propionate (FLONASE) 50 mcg/actuation nasal spray Administer 2 sprays into each nostrildaily as needed for rhinitis FreeStyle Madhav 3 [place] [facility] [place] Use Madhav 3 reader to scan Madhav 3 sensor pen needle, diabetic (Easy Touch) 32 gauge x 5/32 needle USE DIRECTED FOUR TIMES DAILY 100 each3 polyethylene glycol (MIRALAX) 17 gram/dose bulk powder Take 17 g by mouth daily as needed (Constipation) 595 g 0 No Known Allergies Social History Tobacco [...] Diabetes Sister Diabetes Brother Current Medications: Scheduled Meds:acetaminophen, 975 mg, oral, Q8H aspirin, 81 mg, oral, Daily atorvastatin, 40 mg, oral, Nightly benztropine, 1 mg, oral, Nightly benztropine, 2 mg, oral, Daily calcium acetate(phosphat bind), 667 mg, oral, TID with meals carvediloL, 3.125 mg, oral, BID with meals (bkfst, dinner) famotidine, 10 mg, oral, Daily ferrous sulfate, 65 mg of elemental iron, oral, BID with meals (bkfst, dinner) fluticasone propionate, 2 spray, each nostril, Daily heparin, 5,000 Units, subcutaneous, Q8H SOL insulin glargine, 15 Units, subcutaneous, Nightly insulin lispro, 4 Units, subcutaneous, TID AC lidocaine, 3 patch, transdermal, Q24H risperiDONE, 2 mg, oral, Nightly sodium chloride 0.9%, 0.5-20 mL, intra-catheter, Q8H SOL traMADoL, 50 mg, oral, Once Continuous Infusions: PRN Meds:. sodium chloride 0.9% dextrose OR dextrose docusate sodium glucagon hydrALAZINE ondansetron ODT OR ondansetron polyethylene glycol ramelteon sodium chloride 0.9% traMADoL Family History: No hereditary kidney disease in the family Review of systems Negative except as per the HPI Objective Vitals: 24hr Min/Max: Temp Min: 36.9 ??C (98.4 ??F) Max: 37 ??C (98.6 ??F) Pulse Min: 76 Max: 100 BP Min: 151/59 Max: 237/87 Resp Min: 16 Max: 19 SpO2 Min: 97 % Max: 100 % Most Recent: Vitals: 12/20/23 0729 BP: (!) 178/62 Pulse: 83 Resp: 18 Temp: 37 ??C (98.6 ??F) SpO2: 100% I/O last 2 completed shifts: In: - Out: 800 [Urine:800] No intake/output data recorded. Physical Exam: Constitutional: alertAppears elderly, in no distress. Head: Normocephalic. Eyes: No icterus, extraocular movements normal Neck: Neck supple. Cardiovascular: Normal rate and regular rhythm. No murmur heard. Pulmonary/Chest: Breath sounds normal. Abdominal: Soft. Musculoskeletal: exhibits no edema. Neurological: alert and moves all 4 limbs. Skin: No rashes Tunneled hemodialysis catheter Lab/Radiology/Diagnostic Review: I have reviewed all relevant laboratory and imaging results and found ESRD, mild hyperkalemia Additional Labs: Recent Labs Lab Units 12/20/23 0724 12/20/23 0359 12/19/23 2107 12/19/23 1429 SODIUM mmol/L -- 139 -- 141 POTASSIUM PLASMA mmol/L -- 5.0* -- 4.2 CHLORIDE mmol/L -- 103 -- 103 CO2 mmol/L -- 22 -- 22 BUN SERUM mg/dL -- 61* -- 45* CREATININE mg/dL -- 4.50* -- 3.50* [id number] mL/min/1.73 m2 -- 10* -- 13* GLUCOSE mg/dL -- 212* -- 186 POC GLUCOSE MONITOR mg/dL 178 -- < > -- CALCIUM mg/dL -- 9.6 -- 9.6 ALBUMIN g/dL -- -- -- 3.8 < > = values in this interval not displayed. Recent Labs Lab Units 12/20/23 0359 12/19/23 1429 WBC K/cumm 15.0* 18.2* HEMOGLOBIN g/dL 8.9* 10.0* HEMATOCRIT % 27.0* 30.1* PLATELETS K/cumm 245 245 NEUTROS PCT % 86.3 89.0 LYMPHS PCT % 8.7 4.9 MONOS PCT % 4.5 3.9 EOS PCT % 0.0 0.0 Recent Labs Lab Units 12/19/23 1517 COLOR U Straw CLARITY U Clear SPEC GRAV U 1.011 PH, URINE 7.0 PROTEIN UR QL 3+* GLUCOSE URQL 3+* KETONES UR Negative BLOOD UR 1+* NITRITE UR Negative LEUKOCYTE ESTERASE UR Negative Leukocytosis, anemia of renal disease, ASSESSMENT & PLAN Principal Problem: Syncope, unspecified syncope type Active Problems: Type 2 diabetes mellitus with diabetic neuropathy, with long-term current use of insulin ([facility]) Primary hypertension Gastroesophageal reflux disease without esophagitis Schizoaffective disorder, bipolar type (CMS/HCC) ([facility]) Parkinsonism (HCC) Anemia in chronic kidney disease, on chronic dialysis (HCC) ESRD on hemodialysis ([facility]) ([facility]) Left shoulder pain Leukocytosis ESRD on hemodialysis Anemia of renal disease Recommendation --will plan dialysis tomorrow for a short session since he had only 20-30 minutes of dialysis yesterday. Mildly hyperkalemic today and hence will use a 2K bath. Will optimize fluid removal to blood pressure and tolerance with the initial goal of 1-1.5 L. she has anemia of CKD, likely on a long-acting erythropoietin analog in the dialysis unit but since hemoglobin is 8.9 g% will keep her on erythropoietin analog in the hospital. --neurology workup underway --discuss plan with family members at the bedside Thank you for the courtesy of this consultation. Voice recognition software was used to complete this document, therefore, roller operator variances may occur. Tucker Pitts MD, M.S, [facility] Nephrology and Hypertension Office: [phone] documented in this encounter Nursing Notes * Ayanna Garsia RN - 12/26/2023 7:32 PM CDT Patient discharged to home via personal vehicle accompanied by daughter. Discharge instructions reviewed with patient and/or outside energy sales representatives. Mobile pharmacy medications and/or prescriptions provided.Belongings/home medications returned. PIV removed, cath intact. Discharge instructions reviewed with patient and daughter. * Marleni Fangchelsea - 12/26/2023 12:20 PM CDT 12/26/23 1146 Post-Hemodialysis Assessment Rinseback Volume (mL) 250 mL Dialyzer Clearance Clear Duration of Treatment (min) 165 minutes Patient Response to Treatment Tolerated treatment and met ordered UF goal. Net UF 1000 mL Post-Hemodialysis Comments Stable post HD. Hemodialysis Cath Double 10/15/23 Tunneled catheter Right Internal Jugular Placement Date/Time: 10/15/23913 Present on Hospital Admission: No Catheter Time Out Checklist Completed: Yes Hand Hygiene Performed: Yes Site Prep: Chlorhexidine Site Prep Agent has Completely Dried Before Insertion: Yes All 5 Sterile Francisco... Site Assessment Clean and dry Dressing Type CHG Dressing Dressing Status Clean, dry, intact Lumen #1 Status Flushes easily;Heparin locked Lumen #2 Status Flushes easily;Heparin locked * Marie Peres RN - 12/25/2023 11:13 AM CDT Patient stated she feels good, but her shoulder hurts sometimes. She has been A/O 1-2 today and will be discharging when the daughter comes to get her * Rola Sanchez RN - 12/24/2023 11:30 AM CDT 12/24/23 1100 Post-Hemodialysis Assessment Rinseback Volume (mL) 250 mL Dialyzer Clearance Lightly streaked Duration of Treatment (min) 210 minutes Treatment Status Completed Patient Response to Treatment tolerated well Net UF 2000 mL Post-Hemodialysis Comments BP fluctuated throughout treatment, Albumin was given to aid with BP early in treatment. Hemodialysis Kt/V 77.6 * Adriel Fang - 12/22/2023 11:07 AM CDT 12/22/23 1105 Post-Hemodialysis Assessment Rinseback Volume (mL) 250 mL Dialyzer Clearance Clear Duration of Treatment (min) 180 minutes Patient Response to Treatment Tolerated treatment and met ordered UF goal. Net UF 1000 mL Post-Hemodialysis Comments Vital signs stable post HD. Hemodialysis Cath Double 10/15/23 Tunneled catheter Right Internal Jugular Placement Date/Time: 10/15/23913 Present on Hospital Admission: No Catheter Time Out Checklist Completed: Yes Hand Hygiene Performed: Yes Site Prep: Chlorhexidine Site Prep Agent has Completely Dried Before Insertion: Yes All 5 Sterile Francisco... Site Assessment Clean and dry Dressing Status Clean, dry, intact Lumen #1 Status Flushes easily;Heparin locked Lumen #2 Status Flushes easily;Heparin locked * Francis Soria RN - 12/21/2023 4:29 PM CDT 12/21/23 1600 Vitals BP (!) 171/91 Temp 36.2 ??C (97.2 ??F) Temp src Temporal Pulse 69 Resp 18 O2 Therapy None (Room air) Post-Hemodialysis Assessment Rinseback Volume (mL) 250 mL Dialyzer Clearance Lightly streaked Duration of Treatment (min) 180 minutes Treatment Status Completed Patient Status Other (Comment) (bedside tx) Patient Response to Treatment sharad well Net UF 1390 mL Post-Hemodialysis Comments blood returned VSS CVC instilled wuth heparin and end caps applied. Hemodialysis Kt/V 68.5 Hemodialysis Volumes Output (mL) 1390 mL Hemodialysis Cath Double 10/15/23 Tunneled catheter Right Internal Jugular Placement Date/Time: 10/15/23913 Present on Hospital Admission: No Catheter Time Out Checklist Completed: Yes Hand Hygiene Performed: Yes Site Prep: Chlorhexidine Site Prep Agent has Completely Dried Before Insertion: Yes All 5 Sterile Francisco... Site Assessment Clean and dry Dressing Type Gauze Dressing Status Clean, dry, intact Lumen #1 Status Flushes easily;Heparin locked Lumen #2 Status Flushes easily;Heparin locked * Kimberly Mcgee RN - 12/19/2023 6:44 PM CDT Arrived to the floor via stretcher. Alert and responsive at this time. Complaints of pain in the left shoulder. No signs of respiratory distress. Family at bedside. Dinner delivered shortly after arrival. Informed patient and family that it is change of shift and we will get her comfortable and registration clerk will come in and do her assessment and get her admitted into the system, verbalized understanding. Educated on one view system and turned TV on for entertainment and educated to call for helpif needed. Verbalized understanding. Bed alarm on for safety. documented in this encounter ED Notes * Markie Sofia MD - 12/19/2023 2:42 PM CDT HPI Chief Complaint Patient presents with Altered Mental Status HPI 6:05 PM Sixto Chakraborty is a 73 y.o. female presenting to the ED [facility] for an evaluation of unresponsiveness. She has a known history of end-stage renal disease on dialysis and was having dialysis today during the session it is reported she had an episode of unresponsiveness for 60-90 seconds. She also has a known history of diabetes, neuropathy, hypertension, schizoaffective disorder bipolar type, parkinsonism and movement disorder. She follows with Nephrology Dr. Ryan. She was seen in our facility on the diagnosed with urinary tract infection and started on antibiotics. She was sent on that day after an episode of diaphoresis during dialysis. Patient History: Past Medical History: Diagnosis Date [...] Frequency of Binge Drinking: Not on file Current Facility-Administered Medications: dextrose (GLUTOSE) 40 % gel 15 g, 15 g, oral, Q15 Min PRN OR dextrose (D10W) 10% bolus 250 mL, 250 mL, intravenous, Q15 Min PRN glucagon injection 1 mg, 1 mg, intramuscular, Q30 Min PRN Current Outpatient Medications: acetaminophen (TYLENOL) 325 mg [...] elemental iron) tablet flash glucose scanning reader [facility] [place] flash glucose sensor (FreeStyle Madhav 2 Sensor) kit fluticasone propionate (FLONASE) 50 mcg/actuation nasal spray FreeStyle Madhav 3 [place] mis insulin glargine 100 unit/mL (3 mL) pen for injection insulin lispro (HumaLOG, ADMELOG) 100 unit/mL vial for injection lidocaine (ASPERCREME) 4 % adhesive patch,medicated pen needle, diabetic (Easy Touch) 32 gauge x 5/32 needle polyethylene glycol (MIRALAX) 17 gram/dose bulk powder risperiDONE (RisperDAL) 1 mg tablet Review of Systems Review of Systems All other systems reviewed and are negative. All systems reviewed and are neg or non contributory for this patients presentation today other than as stated in the HPI . Physical Exam ED Triage Vitals [12/19/23 1424] Temp Pulse Resp BP SpO2 36.9 ??C (98.5 ??F) 85 19 (!) 237/87 100 % Temp src Heart Rate Source Patient Position BP Location FiO2 (%) Oral -- -- -- -- Height Height Method Weight Weight Method 1.575 m (5' 2 ) Stated 56 kg (123 lb 7.3 oz) EMS stretcher scale Physical Exam Vitals reviewed. HENT: Head: Normocephalic. Mouth/Throat: Mouth: Mucous membranes are moist. Pharynx: Oropharynx is clear. Eyes: Pupils: Pupils are equal, round, and reactive to light. Cardiovascular: Rate and Rhythm: Normal rate and regular rhythm. Heart sounds: Normal heart sounds. Pulmonary: Breath sounds: Normal breath sounds. Abdominal: Palpations: Abdomen is soft. Musculoskeletal: Cervical back: Neck supple. Neurological: General: No focal deficit present. Mental Status: She is alert. Psychiatric: Mood and Affect: Mood normal. Procedures [facility] Labs Reviewed URINALYSIS AND REFLEX TO MICROSCOPIC AND CULTURE - Abnormal Result Value Color, ur Straw Clarity, ur Clear Specific gravity, ur 1.011 pH, urine 7.0 Protein, ur ql 3+ (*) Glucose, ur ql 3+ (*) Ketones, ur Negative Bilirubin, ur Negative Blood, ur 1+ (*) Urobilinogen, ur <2.0 Nitrite, ur Negative Leukocyte esterase, ur Negative UA reflex comment Reflex to microscopic UA will be performed. CBC WITH AUTO DIFFERENTIAL - Abnormal WBC 18.2 (*) Hgb 10.0 (*) Hct 30.1 (*) Plt 245 MPV 10.7 RBC 3.20 (*) MCV 94.1 MCH 31.3 MCHC 33.2 RDW CV 14.2 RDW SD 48.6 (*) NRBC abs 0.00 COMPREHENSIVE METABOLIC PANEL - Abnormal Sodium 141 Potassium, pl 4.2 Chloride 103 CO2 22 Anion gap 16 (*) BUN 45 (*) Creatinine 3.50 (*) Glucose 186 Calcium 9.6 Bilirubin, total 0.2 Protein, pl 7.3 Albumin 3.8 Alk phos 127 ALT 8 AST 12 TROPONIN T HIGH-SENSITIVITY SERIES (BASELINE, 2HR, 4HR, 6HR) - Abnormal Trop T hs 34 (*) DIFFERENTIAL AUTO - Abnormal Neutrophil abs 16.2 (*) Imm gran abs 0.4 (*) Lymphocyte abs 0.9 Monocyte abs 0.7 Eosinophil abs 0.0 Basophil abs 0.0 Neutrophil pct 89.0 Imm gran pct 2.0 Lymphocyte pct 4.9 Monocyte pct 3.9 Eosinophil pct 0.0 Basophil pct 0.2 EGFR - Abnormal eGFR 13 (*) URINALYSIS, MICROSCOPIC ONLY - Abnormal WBC, ur 0-5 RBC, ur 0-2 Epithelial cells, squamous, ur 1-5 Mucous, ur Present (*) Culture Reflex Comment Value: Reflex conditions for urine culture (WBC >10) not met. INFLUENZA A/B, RSV, AND COVID-19 PCR COVID-19 RNA Negative Influenza A RNA Negative Influenza B RNA Negative RSV RNA Negative Narrative: Is the Patient experiencing symptoms consistent with COVID?->Yes BLOOD CULTURE BLOOD CULTURE SEPSIS LACTATE WITH REFLEX Sepsis Lactate 1.9 TROPONIN T HIGH-SENSITIVITY 4-HR TROPONIN T HIGH-SENSITIVITY 6-HOUR POCT GLUCOSE DEVICE POCT GLUCOSE DEVICE POCT GLUCOSE DEVICE CT Chest Abdomen Pelvis WO Contrast Final Result XR Chest 1 Vw Portable Final Result CT Head WO Contrast Final Result BP (!) 173/83 Pulse 90 Temp 36.9 ??C (98.5 ??F) (Oral) Resp 16 Ht 157.5 cm (5' 2 ) Wt 56 kg (123 lb 7.3 oz) SpO2 100% BMI 22.58 kg/m?? MDM Amount and/or Complexity of Data Reviewed Clinical lab tests: reviewed Tests in the radiology section of [facility]??: reviewed Decide to obtain previous medical records or to obtain history from someone other than the patient:yes ED Course as of 12/19/23 1805 Time: 12/18 1448 Comment: EKG 1429 normal sinus rhythm rate [address] elevation or depression By: Markie Sofia MD Time: 12/18 1538 Comment: EXAM DESCRIPTION: XR CHEST 1 VIEW REASON FOR STUDY: Episode of unresponsiveness edematous at dialysis today. TECHNIQUE: Frontal radiographic view(s) of the chest. COMPARISON: Chest radiograph 12/03/2023; CT chest without contrast 12/03/2023. FINDINGS: LUNGS: No focal consolidation. No pleural effusion. No pneumothorax. HEART/MEDIASTINUM: Stable cardiomediastinal silhouette better evaluated on recent CT imaging. LINES/TUBES: Stable positioning of right chest dialysis catheter. BONES: No acute osseous abnormality. IMPRESSION: No acute cardiopulmonary process. By: Markie Sofia MD Time: 12/18 1538 Comment: CT Head: IMPRESSION: No acute intracranial process with chronic findings as above. By: Markie Sofia MD Time: 12/18 1542 Comment: Repeat blood pressure 184/85 By: Markie Sofia MD Time: 12/18 1714 Comment: Patient with pulse rate 90, white blood cell count 18, normal lactic acid. By: Markie Sofia MD Time: 12/18 1714 Comment: CT chest/abd/pelvis: IMPRESSION: No acute abnormality identified. By: Markie Sofia MD This examination was transcribed using the [employer] voice recognition system without human farm tractor mechanic. In an effort to expedite patient care, this report has not been adjusted for typographical, grammatical, and syntax by a trained senior medical writer. Clinical Impression: Syncope, unspecified syncope type ESRD (end stage renal disease) on dialysis (HCC) Leukocytosis, unspecified type Markie Sofia MD 12/19/23 1732 Markie Sofia MD 12/19/23 1805 * Aide Francis RN - 12/19/2023 2:20 PM CDT Pt had an episode of unresponsiveness while at dialysis that lasted 1-1.5 minutes then resolved with pt return to baseline mental status of A&O x1. Blood sugar 254 per EMS. Pt only completed 18 minutes of dialysis today due to episode. History of seizures, unknown when last seizure occurred anddoes not take medication to prevent seizures at this time. documented in this encounter Miscellaneous Notes * Plan of Care - Ayanna Garsia RN - 12/26/2023 7:32 PM CDT Goals: Clinical Goals for the Shift: safety; comfort; VSS; meds as ordered Problem: Skin Integrity Impairment Risk Goal: Mobility will improve 12/26/2023 1708 by Ayanna Garsia RN Outcome: Adequate for Discharge 12/26/2023 1153 by Ayanna Garsia RN Outcome: Progressing Goal: Understanding of ways to prevent future skin breakdown will improve 12/26/2023 1708 by Ayanna Garsia RN Outcome: Adequate for Discharge 12/26/2023 1153 by Ayanna Garsia RN Outcome: Progressing Goal: Nutritional status will improve 12/26/2023 1708 by Ayanna Garsia RN Outcome: Adequate for Discharge 12/26/2023 1153 by Ayanna Garsia RN Outcome: Progressing Goal: Risk for impaired skin integrity will decrease 12/26/2023 1708 by Ayanna Garsia RN Outcome: Adequate for Discharge 12/26/2023 1153 by Ayanna Garsia RN Outcome: Progressing Summary: Assessment of patient???s baseline is established at the beginning of the shift in flowsheets. Patient reassessed per order, unexpected findings and/or deviations from baseline are captured in flowsheets. Frequent safety checks and comfort rounds provided. Orders and/or nursing care completed as indicated. Patient monitored for response to interventions and treatments as documented in flowsheets. * Plan of Care - Deirdre Iqbal LPN - 12/26/2023 3:45 AM CDT Problem: Skin Integrity Impairment Risk Goal: Mobility will improve Outcome: Progressing Goal: Understanding of ways to prevent future skin breakdown will improve Outcome: Progressing Goal: Nutritional status will improve Outcome: Progressing Goal: Risk for impaired skin integrity will decrease Outcome: Progressing Goals: Clinical Goals for the Shift: safety; comfort; VSS; meds as ordered Summary: Assessment of patient???s baseline is established at the beginning of the shift in flowsheets. Patient reassessed per order, unexpected findings and/or deviations from baseline are captured in flowsheets. Frequent safety checks and comfort rounds provided. Orders and/or nursing care completed as indicated. Patient monitored for response to interventions and treatments as documented in flowsheets. * Incidental Note - Chavez Hartman MD - 12/25/2023 4:11 PM CDT CAT call This afternoon CT scan was called because patient vomited after that she was less responsive. Her blood pressure dropped to 70s. But patient blood pressure went up to 111 and she became more responsive and answers question. I order CBC CMP troponin and lactate. I also ordered normal saline bolus 250 mL. Will recheck blood pressure. Patient stated that she felt sick on her stomach and vomited. I will add Zofran 1 time dose before dinner and keep p.r.n. Zofran. * Plan of Care - Marie Peres RN - 12/25/2023 11:04 AM CDT Goals: Clinical Goals for the Shift: monitor vitals, maintain a safe environment and rest Summary: Problem: Discharge Planning Goal: Understanding discharge needs will improve Outcome: Defer Flowsheets (Taken 12/25/2023 0543 by Belkys Roland, RN) Understanding of discharge needs will improve: Discuss information regarding discharge instructions Collaborate with case management interdisciplinary team Identify discharge barriers Identify discharge learning needs (meds, wound care, etc.) Arrange for needed discharge resources and transportation as appropriate Collaborate with language interpretation Problem: Coping Goal: Ability to cope will improve Outcome: Defer Flowsheets (Taken 12/20/2023 1028 by Dedra Vigil, RN) Ability to cope will Improve: Encourage vebalization of feelings surrounding pain Assess beliefs of pain Provide emotional support Perform depression screening Problem: Neurosensory Goal: Achieves stable or improved neurological status Outcome: Defer Problem: Fall Risk Goal: Ability to state ways to decrease the risk of falls will improve Outcome: Ongoing Goal: Will remain free from falls Outcome: Ongoing Goal: Will remain free from injury from falls Outcome: Ongoing Problem: Lack of Knowledge Goal: Ability to develop a pain control plan will improve Outcome: Progressing Problem: Medication Goal: Satisfaction with pain management medication regimen will improve Outcome: Progressing Problem: Sensory Goal: Ability to identify factors that increase pain levels will improve while working to decrease the patient's pain levels Outcome: Progressing Problem: Health Behavior Goal: Identification of resources available to assist in meeting health care needs will improve Outcome: Progressing Problem: Neurosensory Goal: Absence of seizures Outcome: Progressing Goal: Remains free of injury related to seizures activity Outcome: Progressing Goal: Achieves maximal functionality and self care Outcome: Progressing Goal: Ability to maintain intracranial pressure will improve Outcome: Progressing Problem: Respiratory Goal: Achieves optimal ventilation and oxygenation Outcome: Progressing Goal: Ability to maintain a clear airway will improve Outcome: Progressing Goal: Mechanical Ventilation will be safely managed Outcome: Progressing Problem: Musculoskeletal Goal: Return mobility to safest level of function Outcome: Progressing Goal: Maintain proper alignment of affected body part Outcome: Progressing Goal: Return ADL status to a safe level of function Outcome: Progressing Goal: Ability to perform activities at highest level will improve Outcome: Progressing Goal: Mobility, ROM and muscle strength will improve Outcome: Progressing Problem: Lack of Knowledge Goal: Ability to describe self care measures that may prevent or decrease complications related to Type 1 Diabetes will improve Outcome: Progressing Goal: Ability to describe self care measures that may prevent or decrease complications related to Type 2 Diabetes will improve Outcome: Progressing Problem: Physical Regulation Description: Module [...] be avoided or minimized Outcome: Progressing Problem: Skin Integrity Impairment Risk Goal: Mobility will improve Outcome: Progressing Goal: Understanding of ways to prevent future skin breakdown will improve Outcome: Progressing Goal: Nutritional status will improve Outcome: Progressing Goal: Risk for impaired skin integrity will decrease Outcome: Progressing Assessment of patient???s baseline is established at the beginning of the shift in flowsheets. Patient reassessed per order, unexpected findings and/or deviations from baseline are captured in flowsheets. Frequent safety checks and comfort rounds provided. Orders and/or nursing care completed as indicated. Patient monitored for response to interventions and treatments as documented in flowsheets. Plan of care discussed with patient/outside energy sales representatives, including as it relates to Principal Problem: Syncope, unspecified syncope type Active Problems: Type 2 diabetes mellitus with diabetic neuropathy, with long-term current use of insulin ([facility]) Primary hypertension Gastroesophageal reflux disease without esophagitis Schizoaffective disorder, bipolar type (CMS/HCC) ([facility]) Parkinsonism ([facility]) Anemia in chronic kidney disease, on chronic dialysis ([facility]) ESRD on hemodialysis (CMS/HCC) ([facility]) Pain in left arm Leukocytosis ESRD on dialysis ([facility]) Anemia of renal disease Patient progressing. Clinical goals for the shift discharge patient. Education provided includes Treatments/Therapies: . Patient and/or outside energy sales representatives Verbalizes understanding. Will continue to monitor. * Plan of Care - Belkys Roland RN - 12/25/2023 5:44 AM CDT Goals: Clinical Goals for the Shift: monitor vitals, maintain a safe environment and rest Problem: Discharge Planning Goal: Understanding discharge needs will improve Outcome: Ongoing Flowsheets (Taken 12/25/2023 0543) Understanding of discharge needs will improve: Discuss information regarding discharge instructions Collaborate with case management interdisciplinary team Identify discharge barriers Identify discharge learning needs (meds, wound care, etc.) Arrange for needed discharge resources and transportation as appropriate Collaborate with language interpretation Problem: Neurosensory Goal: Ability to maintain intracranial pressure will improve Outcome: Ongoing Flowsheets (Taken 12/25/2023542) Ability to maintain intracranial pressure will improve: Assess signs and symptoms of increased intracranial pressure Provide quiet time and/or decreased environmental stimulation Problem: Musculoskeletal Goal: Return ADL status to a safe level of function Outcome: Ongoing Flowsheets (Taken 12/25/202343) Return activities of daily living status to a safe level of function: Assess patient's activities of daily living deficits and provide assistive devices as needed Obtain PT/OT consults as needed Assist and instruct patient to increase activity and self care * Plan of Care - Clement Burgess RN - 12/24/2023 6:00 PM CDT Goals: Clinical Goals for the Shift: VSS, comfort and safety measures, virtual sitter, fall precautions Summary: Problem: Discharge Planning Goal: Understanding discharge needs will improve Outcome: Progressing Problem: Lack of Knowledge Goal: [...] or improved neurological status Outcome: Progressing Goal: Absence of seizures Outcome: Progressing Goal: Remains free of injury related to seizures activity Outcome: Progressing Goal: Achieves maximal functionality and self care Outcome: Progressing Goal: Ability to maintain intracranial pressure will improve Outcome: Progressing Problem: Respiratory Goal: Achieves optimal ventilation and oxygenation Outcome: Progressing Goal: Ability to maintain a clear airway will improve Outcome: Progressing Goal: Mechanical Ventilation will be safely managed Outcome: Progressing Problem: Musculoskeletal Goal: Return mobility to safest level of function Outcome: Progressing Goal: Maintain proper alignment of affected body part Outcome: Progressing Goal: Return ADL status to a safe level of function Outcome: Progressing Goal: Ability to perform activities at highest level will improve Outcome: Progressing Goal: Mobility, ROM and muscle strength will improve Outcome: Progressing Problem: Lack of Knowledge Goal: Ability to describe self care measures that may prevent or decrease complications related to Type 1 Diabetes will improve Outcome: Progressing Goal: Ability to describe self care measures that may prevent or decrease complications related to Type 2 Diabetes will improve Outcome: Progressing Problem: Physical Regulation Description: Module [...] be avoided or minimized Outcome: Progressing Problem: Skin Integrity Impairment Risk [...] free from injury from falls Outcome: Progressing * Incidental Note - Markie Ryan MD - 12/24/2023 11:29 AM CDT Plans for hemodialysis today consistent with outpatient schedule. If stable okay to discharge from Nephrology standpoint. Will have ongoing discussions with family given expected ongoing issues with tolerating hemodialysis sessions with underlying medical/etcetera issues * Plan of Care - Belkys Roland RN - 12/24/2023 4:52 AM CDT Goals: Clinical Goals for the Shift: monitor vitals, pain control and rest Problem: Discharge Planning Goal: Understanding discharge needs will improve Outcome: Ongoing Flowsheets (Taken 12/24/2023445) Understanding of discharge needs will improve: Identify discharge learning needs (meds, wound care, etc.) Arrange for needed discharge resources and transportation as appropriate Collaborate with language interpretation Identify discharge barriers Collaborate with case management interdisciplinary team Discuss information regarding discharge instructions Problem: Sensory Goal: Ability to identify factors that increase pain levels will improve while working to decrease the patient's pain levels Outcome: Ongoing Flowsheets (Taken 12/24/2023445) Ability to identify factors that increase pain levels will improve while working to decrease patients pain levels: Assess pain status Explore factors that precipitate, worsens, or relieves pain or discomfort Observe non-verbal cues of discomfort, such as restlessness, muscle tension, or altered vital signs * Plan of Care - Clement Burgess RN - 12/23/2023 6:07 PM CDT Goals: Clinical Goals for the Shift: VSS, comfort and safety measures, virtual sitter, fall precautions Summary: Problem: Discharge Planning Goal: Understanding discharge needs will improve Outcome: Progressing Problem: Lack of Knowledge Goal: [...] or improved neurological status Outcome: Progressing Goal: Absence of seizures Outcome: Progressing Goal: Remains free of injury related to seizures activity Outcome: Progressing Goal: Achieves maximal functionality and self care Outcome: Progressing Goal: Ability to maintain intracranial pressure will improve Outcome: Progressing Problem: Respiratory Goal: Achieves optimal ventilation and oxygenation Outcome: Progressing Goal: Ability to maintain a clear airway will improve Outcome: Progressing Goal: Mechanical Ventilation will be safely managed Outcome: Progressing Problem: Musculoskeletal Goal: Return mobility to safest level of function Outcome: Progressing Goal: Maintain proper alignment of affected body part Outcome: Progressing Goal: Return ADL status to a safe level of function Outcome: Progressing Goal: Ability to perform activities at highest level will improve Outcome: Progressing Goal: Mobility, ROM and muscle strength will improve Outcome: Progressing Problem: Lack of Knowledge Goal: Ability to describe self care measures that may prevent or decrease complications related to Type 1 Diabetes will improve Outcome: Progressing Goal: Ability to describe self care measures that may prevent or decrease complications related to Type 2 Diabetes will improve Outcome: Progressing Problem: Physical Regulation Description: Module [...] be avoided or minimized Outcome: Progressing Problem: Skin Integrity Impairment Risk [...] free from injury from falls Outcome: Progressing * Plan of Care - Mikayla Quinonez RN - 12/23/2023 2:04 PM CDT DISCHARGE PLANNING HAS BEEN FINALIZED AT THIS TIME Care management team met with daughter and finalized discharge planning, please see below. If additional discharge needs arise, please reach out to the care management team. SANTOS: 12/24/23 HOME HEALTH: [facility] Home Health [address] [place] [address] Ext 4 Bedside RN to fax order and AVS to above fax number at d/c. Pt was provided list of [facility] for choice 12/23/23 1400 Discharge Summary Discharge Disposition Private residence Equipment/Provider Needs Home Provider Services Needs Identified Anticipated discharge level of care Private residence Actual Discharge Level of Care Private residence Does Actual Level of Care Match Care Team Recommendation? Yes Post Acute Care Plan Home Care Services Yes Type of Home Care Services Nurse visit Home Care Services Name and Phone Number [facility] Home Care Agency Information Home Care Agency Type #1: Prison;Physical Therapy;Occupational Therapy Home Care Agency Name [facility] Home Care Agency Home Care Agency Contact Spoken to [facility] Home Care Agency Order Faxed to [phone] Discharge Additional Assistance Does the patient need discharge transport arranged? No (Daughter will transport) * Plan of Care - Alexia Beltrán RN - 12/23/2023 6:03 AM CDT Problem: Discharge Planning Goal: Understanding discharge needs will improve Outcome: Progressing Problem: Lack of Knowledge Goal: [...] or improved neurological status Outcome: Progressing Goal: Absence of seizures Outcome: Progressing Goal: Remains free of injury related to seizures activity Outcome: Progressing Goal: Achieves maximal functionality and self care Outcome: Progressing Goal: Ability to maintain intracranial pressure will improve Outcome: Progressing Problem: Respiratory Goal: Achieves optimal ventilation and oxygenation Outcome: Progressing Goal: Ability to maintain a clear airway will improve Outcome: Progressing Goal: Mechanical Ventilation will be safely managed Outcome: Progressing Problem: Musculoskeletal Goal: Return mobility to safest level of function Outcome: Progressing Goal: Maintain proper alignment of affected body part Outcome: Progressing Goal: Return ADL status to a safe level of function Outcome: Progressing Goal: Ability to perform activities at highest level will improve Outcome: Progressing Goal: Mobility, ROM and muscle strength will improve Outcome: Progressing Problem: Lack of Knowledge Goal: Ability to describe self care measures that may prevent or decrease complications related to Type 1 Diabetes will improve Outcome: Progressing Goal: Ability to describe self care measures that may prevent or decrease complications related to Type 2 Diabetes will improve Outcome: Progressing Problem: Physical Regulation Description: Module [...] be avoided or minimized Outcome: Progressing Problem: Skin Integrity Impairment Risk [...] Progressing Goals: Clinical Goals for the Shift: VSS, safety Summary: * Plan of Care - Brandie Jett RN - 12/22/2023 6:30 PM CDT Problem: Discharge Planning Goal: Understanding discharge needs will improve Outcome: Not Progressing Problem: Lack of Knowledge Goal: Ability to develop a pain control plan will improve Outcome: Not Progressing Problem: Medication Goal: Satisfaction with pain management medication regimen will improve Outcome: Not Progressing Problem: Sensory Goal: Ability to identify factors that increase pain levels will improve while working to decrease the patient's pain levels Outcome: Not Progressing Problem: Coping Goal: Ability to cope will improve Outcome: Not Progressing Problem: Neurosensory Goal: Achieves stable or improved neurological status Outcome: Not Progressing Problem: Respiratory Goal: Achieves optimal ventilation and oxygenation Outcome: Progressing Goal: Ability to maintain a clear airway will improve Outcome: Progressing Goal: Mechanical Ventilation will be safely managed Outcome: Progressing Problem: Musculoskeletal Goal: Mobility, ROM and muscle strength will improve Outcome: Progressing Problem: Skin Integrity Impairment Risk Goal: Nutritional status will improve Outcome: Not Progressing Goals: Clinical Goals for the Shift: VSS, safety Patient has been very restless after dialysis attempting to get out of bed on numerous occasions. Unable to complete all neuro check as pt is not directable at times. * Provider Query - Chavez Hartman MD - 12/22/2023 11:04 AM CDT Please specify the TYPE and ACUITY of Heart Failure, and document in the medical record and on the form below. __x_ Chronic (Compensated) Diastolic Heart Failure ___ Other, specify below Additional Provider Response: Clinical Indicators/Treatments: Echo on 10/30/23: Ejection Fraction = 60-65%. Grade I diastolic dysfunction, (abnormal relaxation pattern). Treatment: home med coreg H&P by Julieta Helms at 12/19/2023 18:23 female with a PMHx significant for CHF References: CHF Diagnostic Criteria CHF The commonly used Edward Diagnostic Criteria for Heart Failure requires the [...] The epidemiology of congestive heart failure: the Edward Heart Study perspective - PMC (nih.gov) Congestive Heart Failure - StatPearls - NCBI Bookshelf (nih.gov) Acute Heart Failure: Definition, Classification and Epidemiology - [facility] (nih.gov) From the ICD-10-CM Coding Guidelines, use of terms such as likely, suspected, possible, or probable(associated with a specific diagnosis that is being evaluated, monitored, or treated as if it exists) are acceptable and can be coded in the inpatient setting when documented at the time of discharge. This documentation will become part of the patient???s medical record. Sincerely, Anitra Albert FINANCIAL SERVICES DIRECTOR * Plan of Pee - Valerie Cody RN - 12/22/2023 6:12 AM CDT Goals: Clinical Goals for the Shift: VSS, safety Summary: Problem: Discharge Planning Goal: Understanding discharge needs will improve Outcome: Progressing Problem: Lack of Knowledge Goal: [...] to cope will improve Outcome: Progressing Problem: Musculoskeletal Goal: Return mobility to safest level of function Outcome: Progressing Goal: Maintain proper alignment of affected body part Outcome: Progressing Goal: Return ADL status to a safe level of function Outcome: Progressing Goal: Ability to perform activities at highest level will improve Outcome: Progressing Goal: Mobility, ROM and muscle strength will improve Outcome: Progressing * Plan of Care - Brandie Jett RN - 12/21/2023 5:30 PM CDT Problem: Discharge Planning Goal: Understanding discharge needs will improve Outcome: Not Progressing Problem: Lack of Knowledge Goal: Ability to develop a pain control plan will improve Outcome: Not Progressing Problem: Medication Goal: Satisfaction with pain management medication regimen will improve Outcome: Not Progressing Problem: Sensory Goal: Ability to identify factors that increase pain levels will improve while working to decrease the patient's pain levels Outcome: Not Progressing Problem: Coping Goal: Ability to cope will improve Outcome: Not Progressing Goals: Clinical Goals for the Shift: VSS, safety * Plan of Care - Brandie Jett RN - 12/21/2023 5:30 PM CDT Problem: Discharge Planning Goal: Understanding discharge needs will improve 12/21/20232002 by Brandie Jett RN Outcome: Progressing 12/21/20232000 by Brandie Jett RN Outcome: Not Progressing Problem: Lack of Knowledge Goal: Ability to develop a pain control plan will improve 12/21/20232002 by Brandie Jett RN Outcome: Not Progressing 12/21/20232000 by Brandie Jett RN Outcome: Not Progressing Problem: Medication Goal: Satisfaction with pain management medication regimen will improve 12/21/20232002 by Brnadie Jett RN Outcome: Not Progressing 12/21/20232000 by Brandie Jett RN Outcome: Not Progressing Problem: Sensory Goal: Ability to identify factors that increase pain levels will improve while working to decrease the patient's pain levels Outcome: Not Progressing Problem: Coping Goal: Ability to cope will improve 12/21/20232002 by Brandie Jett RN Outcome: Not Progressing 12/21/20232000 by Brandie Jett RN Outcome: Not Progressing Problem: Neurosensory Goal: Achieves stable or improved neurological status Outcome: Not Progressing Problem: Respiratory Goal: Achieves optimal ventilation and oxygenation Outcome: Progressing Goals: Clinical Goals for the Shift: VSS, safety * Initial Assessments - Romelia Van RN - 12/21/2023 12:25 PM CDT CM Initial Assessment Interview Note Information Obtained From: Adult child Name: Areli Gayle (12/21/23 5824) Admission Source: ED from home Impression: Presented with unresponsive episode at HD. Patient is at her baseline orientation x1. Hx of Dementia and schizophrenia. Plan Includes: Patient is from home with her daughter and family support. Family transports to and from her treatments. Interested in HHC upon discharge, preference for [facility]. Referral sent. Primary Source of Transportation: Does the patient need discharge transport arranged?: No (12/21/23 3685) Health Insurance Coverage: Primary Coverage Payor Plan Insurance Group Employer/Plan Group MEDICARE MEDICARE PART A & B Payor Plan Address Payor Plan Phone Number Payor Plan Fax Number Effective Dates [address] [address] 10/21/2015 - None Entered [facility] [address] Subscriber Name Subscriber Date Member ID SIXTO CHAKRABORTY 1950 [id number] Secondary Coverage Payor Plan Insurance Group Employer/Plan Group IDPA IDPA Payor Plan Address Payor Plan Phone Number Payor Plan Fax Number Effective Dates [address] [address] 06/22/2021 - None Entered [facility] [address] Subscriber Name Subscriber Date Member ID SIXTO CHAKRABORTY 1950 [id number] Pharmacy: [id number] - [place] - [address] [place] [address] Primary Care Provider: Cherelle Corcoran MD Prior to Admission: Functional Status: Minimal assist with ADLs Primary Caregiver: Family Support System: Children, Family members, Friends/neighbors Home Care Services: No Type of Home Care Services: life skills worker Home care service name and 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: Daughter is paid sheet ironworker 7x week Outpatient Services: No Durable Medical Equipment: Home Modification Assessment (railes in bathroom), Shower chair, Walker (wheeled), Wheelchair Living Arrangements: Children, Family members Type of Residence: Private residence Does patient wish to return to care facility?: Yes, wishes to return (12/20/23 9840) SDOH: Transportation: In the past 12 months, has lack of transportation kept you from medical appointments or from getting medications?: No In the past 12 months, has lack of transportation kept you from meetings, work, or from getting things needed for daily living?: No (12/21/231430) Financial Resource: How hard is it for you to pay for the very basics like food, housing, medical care, and heating?: Not very hard (12/21/23 143) Housing: In the last 12 months, was there a time when you were not able to pay the mortgage or rent on time?: No In the past 12 months, how many times have you moved where you were living?: 0 At any time in the past 12 months, were you homeless or living in a fpc (including now)?: No (12/21/231436) Utilities: No, (12/21/231430) Social Connections: In a typical week, how many times do you talk on the phone with family, friends, or neighbors?: More than three times a week How often do you get together with friends or relatives?: More than three times a week How often do you attend confucianist or taoist services?: More than 4 times per year Do you belong to any clubs or organizations such as confucianist groups, unions, fraternal or athletic groups, or school groups?: No How often do you attend meetings of the clubs or organizations you belong to?: Never Are you , , , , never , or living with a partner?: (12/21/231430) Food Insecurity: Within the past 12 months, you worried that your food would run out before you got the money to buymore.: Never true Within the past 12 months, the food you bought just didn't last and you didn't have money to get more.: Never true (12/21/231436) Potential discharge needs include: Home Health: Physical therapy, Occupational therapy (12/21/231224) Anticipated Level of Care: Anticipated discharge level of care: Private residence Pt/Family agrees with Anticipated Level of Care: Yes (12/21/231224) Patient expects to be Discharged to: Private residence, (12/21/231224) Patient's Identified Problem/Goal Problem: Ensure acute medical needs are met and that patient has a safe discharge plan. Goal: Secure a discharge plan that patient/family are agreeable with and ensure patient has continuum of care. Case management will follow for discharge planning and send referrals as needed. Romelia Van RN * Plan of Care - Mar Smith RN - 12/21/2023 6:20 AM CDT Problem: Discharge Planning Goal: Understanding discharge needs will improve Outcome: Ongoing Problem: Lack of Knowledge Goal: Ability to develop a pain control plan will improve Outcome: Ongoing Problem: Medication Goal: Satisfaction with pain management medication regimen will improve Outcome: Ongoing Problem: Sensory Goal: Ability to identify factors that increase pain levels will improve while working to decrease the patient's pain levels Outcome: Ongoing Problem: Coping Goal: Ability to cope will improve Outcome: Ongoing Problem: Health Behavior Goal: Identification of resources available to assist in meeting health care needs will improve Outcome: Ongoing Problem: Neurosensory Goal: Achieves stable or improved neurological status Outcome: Ongoing Goal: Absence of seizures Outcome: Ongoing Goal: Remains free of injury related to seizures activity Outcome: Ongoing Goal: Achieves maximal functionality and self care Outcome: Ongoing Goal: Ability to maintain intracranial pressure will improve Outcome: Ongoing Problem: Respiratory Goal: Achieves optimal ventilation and oxygenation Outcome: Ongoing Goal: Ability to maintain a clear airway will improve Outcome: Ongoing Goal: Mechanical Ventilation will be safely managed Outcome: Ongoing Problem: Musculoskeletal Goal: Return mobility to safest level of function Outcome: Ongoing Goal: Maintain proper alignment of affected body part Outcome: Ongoing Goal: Return ADL status to a safe level of function Outcome: Ongoing Goal: Ability to perform activities at highest level will improve Outcome: Ongoing Goal: Mobility, ROM and muscle strength will improve Outcome: Ongoing Problem: Lack of Knowledge Goal: Ability to describe self care measures that may prevent or decrease complications related to Type 1 Diabetes will improve Outcome: Ongoing Goal: Ability to describe self care measures that may prevent or decrease complications related to Type 2 Diabetes will improve Outcome: Ongoing Goals: Clinical Goals for the Shift: VSS, safety Summary: * Plan of Care - Dedra Vigil RN - 12/20/2023 10:29 AM CDT Goals: Clinical Goals for the Shift: safety, pain control, VSS Problem: Discharge Planning Goal: Understanding discharge needs will improve Outcome: Progressing Flowsheets (Taken 12/20/2023 1028) Understanding of discharge needs will improve: Discuss information regarding discharge instructions Collaborate with case management interdisciplinary team Identify discharge barriers Identify discharge learning needs (meds, wound care, etc.) Arrange for needed discharge resources and transportation as appropriate Collaborate with language interpretation Problem: Lack of Knowledge Goal: Ability to develop a pain control plan will improve Outcome: Progressing Flowsheets (Taken 12/20/2023 1028) Ability to develop a pain control plan will improve: Explain causes of pain and how long pain can be expected to last Educate pain scale for assessing level of pain Teach information regarding pain management Teach notification to healthcare provider of episodes of pain Problem: Medication Goal: Satisfaction with pain management medication regimen will improve Outcome: Progressing Flowsheets (Taken 12/20/2023 1028) Satisfaction with pain management medication regimen will improve: Assess satisfaction with pain management regimen Provide administration of medications prior to painful activities Monitor patient controlled analgesia or anesthesia Evaluate medication effects Manage analgesics Report inadequate pain control to healthcare provider Problem: Sensory Goal: Ability to identify factors that increase pain levels will improve while working to decrease the patient's pain levels Outcome: Progressing Flowsheets (Taken 12/20/2023 102) Ability to identify factors that increase pain levels will improve while working to decrease patients pain levels: Assess pain status Explore factors that precipitate, worsens, or relieves pain or discomfort Encourage distraction activities Use TENS therapy Evaluate treatment plan for related conditions Observe non-verbal cues of discomfort, such as restlessness, muscle tension, or altered vital signs Explore and collaborate with complimentary and alternative therapies Provide hot or cold therapy Assess effects of pain control measures Explore alternative treatments for pain from the patient's culture Problem: Coping Goal: Ability to cope will improve Outcome: Progressing Flowsheets (Taken 12/20/2023 102) Ability to cope will Improve: Encourage vebalization of feelings surrounding pain Assess beliefs of pain Provide emotional support Perform depression screening Problem: Health Behavior Goal: Identification of resources available to assist in meeting health care needs will improve Outcome: Progressing Flowsheets (Taken 12/20/2023 1028) Identification of resources available to assist in meeting health care needs will improve: Collaborate with pain management Refer to pain support group Collaborate with all therapies Summary: documented in this encounter Plan of Treatment Upcoming Encounters Date Type Department Care Team (Latest Contact Info) Description 07/13/2024 9:00 AM CAREER GUIDANCE TECHNICIAN Hospital Encounter [facility] [address] [place] [address] Jaya Grier MD [address] [address] 07/13/2024 9:00 AM CAREER GUIDANCE TECHNICIAN - 07/13/2024 9:30 AM CAREER GUIDANCE TECHNICIAN Surgery [facility] [address] [place] [address] Jaya Grier MD [address] [place] [address] ESOPHAGOGASTRODUODENOSCOPY Scheduled Procedures Name Priority Associated Diagnoses Date/Ti me ESOPHAGOGASTRODUODENOSCOPY Anemia, unspecified type Gastritis without bleeding, unspecified chronicity, unspecified gastritis type 07/13/2024 9:00 AM CAREER GUIDANCE TECHNICIAN COLONOSCOPY Iron deficiency anemia due to chronic blood loss Scheduled Referrals Name Type Priority Associated Diagnoses Order Schedule Ambulatory referral to Home Health Outpatient Referral Routine CKD (chronic kidney disease) stage 4, GFR 15-29 ml/min (CMS/HCC) ([facility]) Expected: 12/26/2023, Expires: 06/26/2024 Ambulatory referral to Home Health Outpatient Referral Routine CKD (chronic kidney disease) stage 4, GFR 15-29 ml/min (CMS/HCC) ([facility]) Transient alteration of awareness Expected: 12/26/2023, Expires: 06/26/2024 documented as of this encounter Procedures Procedure Name Priority Date/Time Associated Diagnosis Comments POCT GLUCOSE DEVICE Routine 12/26/2023 5 :35 PM CDT POCT GLUCOSE DEVICE Routine 12/26/2023 1 2:37 PM CDT POCT GLUCOSE DEVICE Routine 12/26/2023 8 :32 AM CDT POCT GLUCOSE DEVICE Routine 12/26/2023 5 :25 AM CDT EGFR Routine 12/26/2023 4:16 AM CDT DIFFERENTIAL AUTO Routine 12/26/2023 4:1 6 AM CDT CBC WITH AUTO DIFFERENTIAL Routine 12/26/2023 4:16 AM CDT BASIC METABOLIC PANEL Routine 12/26/2023 4:16 AM CDT TROPONIN T HIGH-SENSITIVITY 6-HOUR Timed 12/25/2023 10:28 PM CDT TROPONIN T HIGH-SENSITIVITY 4-HR Timed 12/25/2023 8:27 PM CDT POCT GLUCOSE DEVICE Routine 12/25/2023 8 :20 PM CDT TROPONIN T HIGH-SENSITIVITY 2-HOUR Timed 12/25/2023 5:23 PM CDT POCT GLUCOSE DEVICE Routine 12/25/2023 4 :22 PM CDT TROPONIN T HIGH-SENSITIVITY SERIES (BASELINE, 2HR, 4HR, 6HR) Routine 12/25/2023 3:18 PM CDT LACTATE STAT 12/25/2023 3:18 PM CDT EGFR Routine 12/25/2023 3:18 PM CDT DIFFERENTIAL AUTO Routine 12/25/2023 3:1 8 PM CDT CBC WITH AUTO DIFFERENTIAL Routine 12/25/2023 3:18 PM CDT COMPREHENSIVE METABOLIC PANEL Routine 12/25/2023 3:18 PM CDT POCT GLUCOSE DEVICE Routine 12/25/2023 3 :15 PM CDT POCT GLUCOSE DEVICE Routine 12/25/2023 1 2:11 PM CDT HEMODIALYSIS Routine 12/25/2023 10:29 AM CDT POCT GLUCOSE DEVICE Routine 12/25/2023 8 :13 AM CDT EGFR Routine 12/25/2023 5:51 AM CDT DIFFERENTIAL AUTO Routine 12/25/2023 5:5 1 AM CDT CBC WITH AUTO DIFFERENTIAL Routine 12/25/2023 5:51 AM CDT BASIC METABOLIC PANEL Routine 12/25/2023 5:51 AM CDT POCT GLUCOSE DEVICE Routine 12/24/2023 8 :49 PM CDT POCT GLUCOSE DEVICE Routine 12/24/2023 5 :49 PM CDT POCT GLUCOSE DEVICE Routine 12/24/2023 1 1:56 AM CDT POCT GLUCOSE DEVICE Routine 12/24/2023 8 :27 AM CDT EGFR Routine 12/24/2023 7:16 AM CDT DIFFERENTIAL AUTO Routine 12/24/2023 7:1 6 AM CDT CBC WITH AUTO DIFFERENTIAL Routine 12/24/2023 7:16 AM CDT BASIC METABOLIC PANEL Routine 12/24/2023 7:16 AM CDT POCT GLUCOSE DEVICE Routine 12/23/2023 8 :41 PM CDT POCT GLUCOSE DEVICE Routine 12/23/2023 4 :44 PM CDT POCT GLUCOSE DEVICE Routine 12/23/2023 1 2:56 PM CDT HEMODIALYSIS Routine 12/23/2023 12:09 PM CDT EGFR Routine 12/23/2023 9:09 AM CDT DIFFERENTIAL AUTO Routine 12/23/2023 9:0 9 AM CDT CBC WITH AUTO DIFFERENTIAL Routine 12/23/2023 9:09 AM CDT BASIC METABOLIC PANEL Routine 12/23/2023 9:09 AM CDT POCT GLUCOSE DEVICE Routine 12/23/2023 9 :06 AM CDT POCT GLUCOSE DEVICE Routine 12/22/2023 7 :50 PM CDT POCT GLUCOSE DEVICE Routine 12/22/2023 5 :21 PM CDT EEG Routine 12/22/2023 2:11 PM CDT POCT GLUCOSE DEVICE Routine 12/22/2023 1 1:25 AM CDT EGFR Routine 12/22/2023 9:11 AM CDT DIFFERENTIAL AUTO Routine 12/22/2023 9:1 1 AM CDT CBC WITH AUTO DIFFERENTIAL Routine 12/22/2023 9:11 AM CDT BASIC METABOLIC PANEL Routine 12/22/2023 9:11 AM CDT POCT GLUCOSE DEVICE Routine 12/22/2023 8 :50 AM CDT HEMODIALYSIS Routine 12/22/2023 5:49 AM CDT POCT GLUCOSE DEVICE Routine 12/21/2023 1 0:19 PM CDT POCT GLUCOSE DEVICE Routine 12/21/2023 4 :23 PM CDT POCT GLUCOSE DEVICE Routine 12/21/2023 1 2:19 PM CDT US CAROTIDS DUPLEX BILATERAL ED 12/21/2023 12:11 PM CDT HEPATITIS B SURFACE ANTIBODY (IMMUNE STATUS) Routine 12/21/2023 11:05 AM CDT HEPATITIS B SURFACE ANTIGEN Routine 12/21/2023 11:05 AM CDT POCT GLUCOSE DEVICE Routine 12/21/2023 7 :41 AM CDT EGFR Routine 12/21/2023 4:45 AM CDT DIFFERENTIAL AUTO Routine 12/21/2023 4:4 5 AM CDT CBC WITH AUTO DIFFERENTIAL Routine 12/21/2023 4:45 AM CDT BASIC METABOLIC PANEL Routine 12/21/2023 4:45 AM CDT POCT GLUCOSE DEVICE Routine 12/20/2023 8 :44 PM CDT HEMODIALYSIS Routine 12/20/2023 5:08 PM CDT POCT GLUCOSE DEVICE Routine 12/20/2023 5 :07 PM CDT POCT GLUCOSE DEVICE Routine 12/20/2023 1 1:58 AM CDT POCT GLUCOSE DEVICE Routine 12/20/2023 7:24 AM CDT TROPONIN T HIGH-SENSITIVITY 6-HOUR Timed 12/20/2023 3:59 AM CDT EGFR Routine 12/20/2023 3:59 AM CDT DIFFERENTIAL AUTO Routine 12/20/2023 3:5 9 AM CDT CBC WITH AUTO DIFFERENTIAL Routine 12/20/2023 3:59 AM CDT BASIC METABOLIC PANEL Routine 12/20/2023 3:59 AM CDT POCT GLUCOSE DEVICE Routine 12/20/2023 2 :30 AM CDT POCT GLUCOSE DEVICE Routine 12/19/2023 9 :07 PM CDT TROPONIN T HIGH-SENSITIVITY 4-HR Timed 12/19/2023 6:[address] CHEST ABDOMEN PELVIS WO CONTRAST ED 12/19/2023 4:36 PM CDT SEPSIS LACTATE WITH REFLEX STAT 12/19/2023 4:14 PM CDT BLOOD CULTURE STAT 12/19/2023 4:14 PM CDT BLOOD CULTURE STAT 12/19/2023 4:14 PM CDT INFLUENZA A/B, RSV, AND COVID-19 PCR STAT 12/19/2023 3:17 PM CDT URINALYSIS AND REFLEX TO MICROSCOPIC AND CULTURE STAT 12/19/2023 3:17 PM CDT URINALYSIS, MICROSCOPIC ONLY STAT 12/19/2023 3:17 PM CDT XR CHEST 1 VIEW ED 12/19/2023 3:[address] HEAD WO CONTRAST ED 12/19/2023 3 :10 PM CDT ECG 12-LEAD STAT 12/19/2023 2:29 PM CDT TROPONIN T HIGH-SENSITIVITY SERIES (BASELINE, 2HR, 4HR, 6HR) STAT 12/19/2023 2:29 PM CDT EGFR STAT 12/19/2023 2:29 PM CDT DIFFERENTIAL AUTO STAT 12/19/2023 2:2 9 PM CDT CBC WITH AUTO DIFFERENTIAL STAT 12/19/2023 2:29 PM CDT COMPREHENSIVE METABOLIC PANEL STAT 12/19/2023 2:29 PM CDT documented in this encounter Results * POCT glucose (12/26/2023 5:35 PM CDT) Glucose, POC 104 70 - 199 mg/dL Comment:Testing performed by : [address] [id number] Glucose comment 1 Use This Result NILSA Comment:Testing performed by : [address] [id number] Blood 12/26/2023 5:35 PM CDT 12/26/2023 5:35 PM CDT Chavez Hartman MD LAB POCT ORDERABLES - ROSE CE Final Result Performing Organization Address City/[facility]/ZIP Co de Phone Number NISLA [address] [place] [address] * POCT glucose (12/26/2023 12:37 PM CDT) Glucose, POC 100 70 - 199 mg/dL Comment:Testing performed by : [address] [address] Glucose comment 1 Use This Result NILSA Comment:Testing performed by : [address] [id number] Blood 12/26/2023 12:3 7 PM CDT 12/26/2023 12:37 PM CDT Chavez Hartman MD LAB POCT ORDERABLES - ROSE CE Final Result Performing Organization Address City/[facility] Co de Phone Number CARLOS ENRIQUEELLEN [address] [place] [address] * POCT glucose (12/26/2023 8:32 AM CDT) Glucose, POC 86 70 - 199 mg/dL Comment:Testing performed by : [address] [address] Glucose comment 1 Use This Result NILSA Comment:Testing performed by : [address] [id number] Blood 12/26/2023 8:32 AM CDT 12/26/2023 8:32 AM CDT Chavez Hartman MD LAB POCT ORDERABLES - ROSE CE Final Result Performing Organization Address [facility] Co de Phone Number NILSA [address] [facility] [place] [address] * POCT glucose (12/26/2023 5:25 AM CDT) [facility] Glucose, POC 82 70 - 199 mg/dL Comment:Testing performed by : [facility], [address] [place] [address]., [id number] Glucose comment 1 Use This Result NILSA Comment:Testing performed by : [facility], [address] [place] [address]., [id number] Blood 12/26/2023 5:25 AM CDT 12/26/2023 5:25 AM CDT Chavez Hartman MD LAB POCT ORDERABLES - ROSE CE Final Result Performing Organization Address [facility] [[email or web address]] de Phone Number NILSA [address] [facility] [place] [address] * (ABNORMAL) eGFR (12/26/2023 4:16 AM CDT) [facility] eGFR 10(L) >=60 mL/min/1. 73 m2 Comment: [...] was last reviewed 2021. Testing performed by: [address] [address] Blood 12/26/2023 4:16 AM CDT 12/26/2023 4:40 AM CDT us Julieta CUEVA LAB BLOOD ORDERABLES Final Re sult NILSA [facility]9 [facility] Department [place] [address] * (ABNORMAL) Differential, auto (12/26/2023 4:16 AM CDT) Neutrophil abs 10.0(H) 1.5 - 6.5 K/cumm Comment:Testing performed by : [address] [address] Imm gran abs 0.1 0.0 - 0.1 K/cumm NILSA Comment:Testing performed by : [address] [address] Lymphocyte abs 2.9 0.8 - 3.3 K/cumm NILSA Comment:Testing performed by : [address] [address] Monocyte abs 1.1(H) 0.2 - 0.8 K/cumm NILSA Comment:Testing performed by : [address] [address] Eosinophil abs 0.1 0.0 - 0.5 K/cumm NILSA Comment:Testing performed by : [address] [address] Basophil abs 0.0 0.0 - 0.1 K/cumm NILSA Comment:Testing performed by : [address] [address] Neutrophil pct 70.6 % [facility] Comment: Interpretive Data Percent cell count reference ranges are not reported, since discordance with absolute values may lead to misinterpretation of CBC data. Current Interpretive Data was last revised on 2017. Testing performed by: [address] [address] Imm gran pct 0.4 % [facility] Comment: Interpretive Data Percent cell count reference ranges are not reported, since discordance with absolute values may lead to misinterpretation of CBC data. Current Interpretive Data was last revised on 2017. Testing performed by: [address] [address] Lymphocyte pct 20.1 % [facility] Comment: Interpretive Data Percent cell count reference ranges are not reported, since discordance with absolute values may lead to misinterpretation of CBC data. Current Interpretive Data was last revised on 2017. Testing performed by: [address] [address] Monocyte pct 8.0 % [facility] Comment: Interpretive Data Percent cell count reference ranges are not reported, since discordance with absolute values may lead to misinterpretation of CBC data. Current Interpretive Data was last revised on 2017. Testing performed by: [address] [address] Eosinophil pct 0.8 % [facility] Comment: Interpretive Data Percent cell count reference ranges are not reported, since discordance with absolute values may lead to misinterpretation of CBC data. Current Interpretive Data was last revised on 2017. Testing performed by: [address] [address] Basophil pct 0.1 % [facility] Comment: Interpretive Data Percent cell count reference ranges are not reported, since discordance with absolute values may lead to misinterpretation of CBC data. Current Interpretive Data was last revised on 2017. Testing performed by: [address] [address] Blood 12/26/2023 4:16 AM CDT 12/26/2023 4:40 AM CDT us Julieta CUEVA LAB BLOOD ORDERABLES Final Re sult NILSA [address] [facility] Department [place] [address] * (ABNORMAL) CBC with auto differential (12/26/2023 4:16 AM CDT) WBC 14.2(H) 3.8 - 9.9 K/cumm Comment:Testing performed by : [address] [address] Hgb 8.7(L) 11.9 - 15.5 g/dL NILSA Comment:Testing performed by : [address] [address] Hct 26.9(L) 35.6 - 45.5 % NILSA Comment:Testing performed by : [address] [address] Plt 277 150 - 400 K/cumm NILSA Comment:Testing performed by : [address] [address] MPV 10.2 9.1 - 12.3 fL NILSA Comment:Testing performed by : [address] [address] RBC 2.82(L) 3.90 - 5.20 M/cumm NILSA Comment:Testing performed by : [address] [address] MCV 95.4 81.3 - 96.4 fL NILSA Comment:Testing performed by : [address] [address] MCH 30.9 27.1 - 33.3 pg NILSA RODRIGES Comment:Testing performed by : [address] [address] MCHC 32.3 32.3 - 35.7 g/dL NILSA RODRIGES Comment:Testing performed by : [address] [address] RDW CV 14.2 11.1 - 14.9 % NILSA Comment:Testing performed by : [address] [address] RDW SD 47.7 35.7 - 48.1 fL NILSA RODRIGES Comment:Testing performed by : [address] [address] NRBC abs 0.00 0.00 - 0.01 K/cumm NILSA Comment:Testing performed by : [address] [address] Blood 12/26/2023 4:16 AM CDT 12/26/2023 4:40 AM CDT us Julieta CUEVA LAB BLOOD ORDERABLES Final Re sult NILSA [facility]0 [facility] Department [place] [address] * (ABNORMAL) Basic metabolic panel (12/26/2023 4:16 AM CDT) Sodium 136 135 - 145 mmol/L Comment:Testing performed by : [address] [address] Potassium, pl 4.2 3.3 - 4.9 mmol/L NILSA Comment:Testing performed by : [address] [address] Chloride 99 97 - 110 mmol/L NILSA Comment:Testing performed by : [address] [address] CO2 26 22 - 32 mmol/L NILSA Comment:Testing performed by : [address] [address] Anion gap 11 2 - 15 mmol/L NILSA Comment:Testing performed by : [address] [address] BUN 43(H) 6 - 25 mg/dL NILSA Comment:Testing performed by : [address] [address] Creatinine 4.40(H) 0.60 - 1.10 mg/dL NILSA RODRIGES Comment:Testing performed by : [address] [address] Glucose 80 70 - 199 mg/dL NILSA Comment: Interpretive [...] was last revised 2022. Testing performed by: [address] [address] Calcium 8.5 8.5 - 10.3 mg/dL NILSA Comment:Testing performed by : [address] [address] Blood 12/26/2023 4:16 AM CDT 12/26/2023 4:40 AM CDT us Julieta CUEVA LAB BLOOD ORDERABLES Final Re sult NILSA 9414 [facility] Department [place] [address] * (ABNORMAL) Troponin T high-sensitivity 6-hour (12/25/2023 10:28 PM CDT) Trop T hs 42(H) <=14 ng/L Comment: Ref Range High Interpretive Data For further hscTnT resources including the diagnostic algorithm and an aid in interpretation, copy and paste this link: [email or web address].[email or web address]/show/[email or web address] Current Interpretive Data last revised 2020. Testing performed by: [address] [address] Trop T hs delta See Comment ng/L NILSA Comment: Inappropriate collection time to report a delta. Testing performed by: [address] [address] Trop T hs pct delta See Comment % NILSA RODRIGES Comment: Inappropriate collection time to report a delta. Testing performed by: [address] [address] Trop T hs interp See Comment NILSA RODRIGES Comment: Inappropriate collection time to report a delta. Testing performed by: [address] [address] Blood 12/25/2023 10:2 8 PM CDT 12/25/2023 10:42 PM CDT us Chavez Hartman MD LAB BLOOD ORDERABLES Final Result NILSA RODRIGES [address] [facility] Department [place] [address] * (ABNORMAL) Troponin T high-sensitivity 4-hour (12/25/2023 8:27 PM CDT) Trop T hs 41(H) <=14 ng/L Comment: Ref Range High Interpretive Data For further hscTnT resources including the diagnostic algorithm and an aid in interpretation, copy and paste this link: [email or web address].[email or web address]/show/[email or web address] Current Interpretive Data last revised 2020. Testing performed by: [address] [address] Trop T hs delta See Comment ng/L NILSA RODRIGES Comment: Inappropriate collection time to report a delta. Testing performed by: [address] [address] Trop T hs pct delta See Comment % NILSA Comment: Inappropriate collection time to report a delta. Testing performed by: [address] [address] Trop T hs interp See Comment NILSA RODRIGES Comment: Inappropriate collection time to report a delta. Testing performed by: [address] [address] Blood 12/25/2023 8:27 PM CDT 12/25/2023 8:30 PM CDT Chavez Hartman MD LAB BLOOD ORDERABLES Final Result Performing Organization Address City/[facility] Co de Phone Number NILSA [address] [address] * POCT glucose (12/25/2023 8:20 PM CDT) Glucose, POC 154 70 - 199 mg/dL Comment:Testing performed by : [address] [address] Glucose comment 1 Use This Result NILSA RODRIGES Comment:Testing performed by : [address] [address] Blood 12/25/2023 8:20 PM CDT 12/25/2023 8:20 PM CDT Chavez Hartman MD LAB POCT ORDERABLES - ROSE CE Final Result Performing Organization Address [facility] Co de Phone Number NILSA [address] [address] * (ABNORMAL) Troponin T high-sensitivity 2-hour (12/25/2023 5:23 PM CDT) [facility] Trop T hs 42(H) <=14 ng/L Comment: Ref Range High Interpretive Data For further hscTnT resources including the diagnostic algorithm and an aid in interpretation, copy and paste this link: [email or web address].testcatalog.org/show/hsTrop Current Interpretive Data last revised 2020. Testing performed by: [address] [address] Trop T hs delta -2 ng/L NILSA RODRIGES Comment:Testing performed by : [address] [address] Trop T hs interp Insignificant NILSA RODRIGES Comment:Testing performed by : [address] [address] Blood 12/25/2023 5:23 PM CDT 12/25/2023 5:27 PM CDT Chavez Hartman MD LAB BLOOD ORDERABLES Final Result Performing Organization Address [facility] Co de Phone Number NILSA [facility] [place] [address] * POCT glucose (12/25/2023 4:22 PM CDT) Pathologist [facility] Glucose, POC 151 70 - 199 mg/dL Comment:Testing performed by : [facility], [address] [place] [address]., [address] Blood 12/25/2023 4:22 PM CDT 12/25/2023 4:22 PM CDT Chavez Hartman MD LAB POCT ORDERABLES - ROSE CE Final Result Performing Organization Address [facility] [[email or web address]] de Phone Number NILSA [facility] [place] [address] * (ABNORMAL) eGFR (12/25/2023 3:18 PM CDT) [facility] eGFR 12(L) >=60 mL/min/1. 73 m2 Comment: Interpretive Data [...] was last reviewed 2021. Testing performed by: [facility], [address] [place] [address]., [address] Blood 12/25/2023 3:18 PM CDT 12/25/2023 3:20 PM CDT us Chavez Hartman MD LAB BLOOD ORDERABLES Final Result NILSA [facility] Department [place] [address] * (ABNORMAL) Differential, auto (12/25/2023 3:18 PM CDT) Neutrophil abs 8.1(H) 1.5 - 6.5 K/cumm Comment:Testing performed by : [address] [address] Imm gran abs 0.1 0.0 - 0.1 K/cumm NILSA Comment:Testing performed by : [address] [address] Lymphocyte abs 2.6 0.8 - 3.3 K/cumm NILSA Comment:Testing performed by : [address] [address] Monocyte abs 0.7 0.2 - 0.8 K/cumm NILSA Comment:Testing performed by : [address] [address] Eosinophil abs 0.1 0.0 - 0.5 K/cumm NILSA Comment:Testing performed by : [address] [address] Basophil abs 0.0 0.0 - 0.1 K/cumm NILSA Comment:Testing performed by : [address] [address] Neutrophil pct 70.3 % NILSA Comment: Interpretive Data Percent cell count reference ranges are not reported, since discordance with absolute values may lead to misinterpretation of CBC data. Current Interpretive Data was last revised on 2017. Testing performed by: [address] [address] Imm gran pct 0.5 % [facility] Comment: Interpretive Data Percent cell count reference ranges are not reported, since discordance with absolute values may lead to misinterpretation of CBC data. Current Interpretive Data was last revised on 2017. Testing performed by: [address] [address] Lymphocyte pct 22.3 % [facility] Comment: Interpretive Data Percent cell count reference ranges are not reported, since discordance with absolute values may lead to misinterpretation of CBC data. Current Interpretive Data was last revised on 2017. Testing performed by: [address] [address] Monocyte pct 5.7 % [facility] Comment: Interpretive Data Percent cell count reference ranges are not reported, since discordance with absolute values may lead to misinterpretation of CBC data. Current Interpretive Data was last revised on 2017. Testing performed by: [address] [address] Eosinophil pct 1.0 % [facility] Comment: Interpretive Data Percent cell count reference ranges are not reported, since discordance with absolute values may lead to misinterpretation of CBC data. Current Interpretive Data was last revised on 2017. Testing performed by: [address] [address] Basophil pct 0.2 % [facility] Comment: Interpretive Data Percent cell count reference ranges are not reported, since discordance with absolute values may lead to misinterpretation of CBC data. Current Interpretive Data was last revised on 2017. Testing performed by: [address] [address] Blood 12/25/2023 3:18 PM CDT 12/25/2023 3:20 PM CDT Chavez Hartman MD LAB BLOOD ORDERABLES Final Result Performing Organization Address City/[facility]/ZIP Co de Phone Number [address] [address] * Lactate (12/25/2023 3:18 PM CDT) [facility] Lactate 1.9 0.7 - 2.0 mmol/L Comment:Testing performed by : [address] [address] Blood 12/25/2023 3:18 PM CDT 12/25/2023 3:21 PM CDT Chavez Hartman MD LAB BLOOD ORDERABLES Final Result Performing Organization Address [facility] Co de Phone Number [address] [address] * (ABNORMAL) Comprehensive metabolic panel (12/25/2023 3:18 PM CDT) [facility] Sodium 134(L) 135 - 145 mmol/L Comment:Testing performed by : [address] [address] Potassium, pl 4.7 3.3 - 4.9 mmol/L NILSA Comment:Testing performed by : [address] [address] Chloride 93(L) 97 - 110 mmol/L NILSA Comment:Testing performed by : [address] [address] CO2 26 22 - 32 mmol/L NILSA Comment:Testing performed by : [address] [address] Anion gap 15 2 - 15 mmol/L NILSA Comment:Testing performed by : [address] [address] BUN 37(H) 6 - 25 mg/dL NILSA Comment:Testing performed by : [address] [address] Creatinine 3.70(H) 0.60 - 1.10 mg/dL NILSA Comment:Testing performed by : [address] [address] Glucose 153 70 - 199 mg/dL NILSA Comment: Interpretive [...] was last revised 2022. Testing performed by: [address] [address] Calcium 9.0 8.5 - 10.3 mg/dL NILSA Comment:Testing performed by : [address] [address] Bilirubin, total <0.2 0.1 - 1.2 mg/dL NILSA Comment:Testing performed by : [address] [address] Protein, pl 7.3 6.5 - 8.5 g/dL NILSA Comment:Testing performed by : [address] [address] Albumin 4.0 3.5 - 5.0 g/dL NILSA Comment:Testing performed by : [address] [address] Alk phos 101 40 - 130 Units/L NILSA Comment:Testing performed by : [address] [address] ALT 17 7 - 45 Units/L [facility] Comment:Testing performed by : [address] [address] AST 23 10 - 45 Units/L NILSA Comment: HEMOLYZED: Hemolysis interferes with the above test. Testing performed by: [address] [address] Blood 12/25/2023 3:18 PM CDT 12/25/2023 3:20 PM CDT Chavez Hartman MD LAB BLOOD ORDERABLES Final Result Performing Organization Address [facility] [[email or web address]] de Phone Number NILSA [address] [facility] [place] [address] * (ABNORMAL) Troponin T high-sensitivity series (baseline, 2hr, 4hr, 6hr) (12/25/2023 3:18 PM CDT) Pathologist [facility] Trop T hs 44(H) <=14 ng/L Comment: Ref Range High Interpretive Data For further hscTnT resources including the diagnostic algorithm and an aid in interpretation, copy and paste this link: [email or web address].testcatalog.org/show/[email or web address] Current Interpretive Data last revised 2020. Testing performed by: [address] [address] Blood 12/25/2023 3:18 PM CDT 12/25/2023 3:20 PM CDT Chavez Hartman MD LAB BLOOD ORDERABLES Final Result Performing Organization Address [facility] Co de Phone Number NILSA [address] [facility] [place] [address] * (ABNORMAL) CBC with auto differential (12/25/2023 3:18 PM CDT) [facility] WBC 11.6(H) 3.8 - 9.9 K/cumm Comment:Testing performed by : [address] [address] Hgb 9.3(L) 11.9 - 15.5 g/dL NILSA RODRIGES Comment:Testing performed by : [address] [address] Hct 27.7(L) 35.6 - 45.5 % NILSA RODRIGES Comment:Testing performed by : [address] [address] Plt 280 150 - 400 K/cumm NILSA RODRIGES Comment:Testing performed by : [address] [address] MPV 10.3 9.1 - 12.3 fL NILSA RODRIGES Comment:Testing performed by : [address] [address] RBC 2.93(L) 3.90 - 5.20 M/cumm NILSA RODRIGES Comment:Testing performed by : [address] [address] MCV 94.5 81.3 - 96.4 fL NILSA Comment:Testing performed by : [address] [address] MCH 31.7 27.1 - 33.3 pg NILSA RODRIGES Comment:Testing performed by : [address] [address] MCHC 33.6 32.3 - 35.7 g/dL NILSA Comment:Testing performed by : [address] [address] RDW CV 14.2 11.1 - 14.9 % NILSA Comment:Testing performed by : [address] [address] RDW SD 47.5 35.7 - 48.1 fL NILSA Comment:Testing performed by : [address] [address] NRBC abs 0.00 0.00 - 0.01 K/cumm NILSA Comment:Testing performed by : [address], [address] Blood 12/25/2023 3:18 PM CDT 12/25/2023 3:20 PM CDT us Chavez Hartman MD LAB BLOOD ORDERABLES Final Result NILSA 8984 [facility] Department of Laboratories [place], [place] [id number] * POCT glucose (12/25/2023 3:15 PM CDT) [facility] Signature Glucose, POC 149 70 - 199 mg/dL Comment:Testing performed by : [address] [address] Glucose comment 1 RN/MD Notified NILSA Comment:Testing performed by : [address] [address] Blood 12/25/2023 3:15 PM CDT 12/25/2023 3:15 PM CDT Chavez Hartman MD LAB POCT ORDERABLES - ROSE CE Final Result Performing Organization Address City/[facility]/ZIP Co de Phone Number NILSA [address] [place] [address] * POCT glucose (12/25/2023 12:11 PM CDT) Glucose, POC 193 70 - 199 mg/dL Comment:Testing performed by : [address] [address] Blood 12/25/2023 12:1 1 PM CDT 12/25/2023 12:11 PM CDT Chavez Hartman MD LAB POCT ORDERABLES - ROSE CE Final Result Performing Organization Address [facility] Co de Phone Number [address] [place] [address] * POCT glucose (12/25/2023 8:13 AM CDT) Glucose, POC 137 70 - 199 mg/dL Comment:Testing performed by : [address] [address] Blood 12/25/2023 8:13 AM CDT 12/25/2023 8:13 AM CDT Chavez Hartman MD LAB POCT ORDERABLES - ROSE CE Final Result Performing Organization Address City/[facility]/ZIP Co de Phone Number CARLOS ENRIQUE[address] [place] [address] * (ABNORMAL) eGFR (12/25/2023 5:51 AM CDT) eGFR 15(L) >=60 mL/min/1. 73 [...] was last reviewed 2021. Testing performed by: [facility], [address] [place] [address]., [address] Blood 12/25/2023 5:51 AM CDT 12/25/2023 6:01 AM CDT us Julieta CUEVA LAB BLOOD ORDERABLES Final Re sult NILSA 9829 [facility] Department [place] [address] * (ABNORMAL) Differential, auto (12/25/2023 5:51 AM CDT) Pathologist [facility] Neutrophil abs 5.3 1.5 - 6.5 K/cumm Comment:Testing performed by : [address] [address] Imm gran abs 0.0 0.0 - 0.1 K/cumm [facility] Comment:Testing performed by : [address], [place]., [address] Lymphocyte abs 3.5(H) 0.8 - 3.3 K/cumm CERNER Comment:Testing performed by : [address] [address] Monocyte abs 0.9(H) 0.2 - 0.8 K/cumm [facility] Comment:Testing performed by : [address], [place]., [address] Eosinophil abs 0.2 0.0 - 0.5 K/cumm [facility] Comment:Testing performed by : [address] [address] Basophil abs 0.0 0.0 - 0.1 K/cumm [facility] Comment:Testing performed by : [address] [address] Neutrophil pct 53.5 % [facility] Comment: Interpretive Data Percent cell count reference ranges are not reported, since discordance with absolute values may lead to misinterpretation of CBC data. Current Interpretive Data was last revised on 2017. Testing performed by: [address] [address] Imm gran pct 0.3 % CERNER Comment: Interpretive Data Percent cell count reference ranges are not reported, since discordance with absolute values may lead to misinterpretation of CBC data. Current Interpretive Data was last revised on 2017. Testing performed by: [address] [address] Lymphocyte pct 35.3 % CERNER Comment: Interpretive Data Percent cell count reference ranges are not reported, since discordance with absolute values may lead to misinterpretation of CBC data. Current Interpretive Data was last revised on 2017. Testing performed by: [address] [address] Monocyte pct 8.5 % CERNER Comment: Interpretive Data Percent cell count reference ranges are not reported, since discordance with absolute values may lead to misinterpretation of CBC data. Current Interpretive Data was last revised on 2017. Testing performed by: [address] [address] Eosinophil pct 2.3 % NILSA Comment: Interpretive Data Percent cell count reference ranges are not reported, since discordance with absolute values may lead to misinterpretation of CBC data. Current Interpretive Data was last revised on 2017. Testing performed by: [address] [address] Basophil pct 0.1 % NILSA Comment: Interpretive Data Percent cell count reference ranges are not reported, since discordance with absolute values may lead to misinterpretation of CBC data. Current Interpretive Data was last revised on 2017. Testing performed by: [address] [address] Blood 12/25/2023 5:51 AM CDT 12/25/2023 6:01 AM CDT us Julieta CUEVA LAB BLOOD ORDERABLES Final Re sult [facility] [address] [facility] Department [place] [address] * (ABNORMAL) CBC with auto differential (12/25/2023 5:51 AM CDT) Pathologist [facility] WBC 10.0(H) 3.8 - 9.9 K/cumm Comment:Testing performed by : [address] [address] Hgb 8.4(L) 11.9 - 15.5 g/dL NILSA Comment:Testing performed by : [address] [address] Hct 26.2(L) 35.6 - 45.5 % NILSA Comment:Testing performed by : [address] [address] Plt 244 150 - 400 K/cumm NILSA Comment:Testing performed by : [address] [address] MPV 10.1 9.1 - 12.3 fL NILSA Comment:Testing performed by : [address] [address] RBC 2.75(L) 3.90 - 5.20 M/cumm NILSA RODRIGES Comment:Testing performed by : [address] [address] MCV 95.3 81.3 - 96.4 fL NILSA Comment:Testing performed by : [address] [address] MCH 30.5 27.1 - 33.3 pg NILSA Comment:Testing performed by : [address] [address] MCHC 32.1(L) 32.3 - 35.7 g/dL NILSA Comment:Testing performed by : [address], [address] RDW CV 13.7 11.1 - 14.9 % NILSA Comment:Testing performed by : [address] [address] RDW SD 46.9 35.7 - 48.1 fL NILSA Comment:Testing performed by : [address] [address] NRBC abs 0.00 0.00 - 0.01 K/cumm NILSA Comment:Testing performed by : [address] [address] Blood 12/25/2023 5:51 AM CDT 12/25/2023 6:01 AM CDT us Julieta CUEVA LAB BLOOD ORDERABLES Final Re sult NILSA 0210 [facility] Department [place] [address] * (ABNORMAL) Basic metabolic panel (12/25/2023 5:51 AM CDT) Sodium 135 135 - 145 mmol/L Comment:Testing performed by : [address] [address] Potassium, pl 3.9 3.3 - 4.9 mmol/L NILSA Comment:Testing performed by : [address] [address] Chloride 96(L) 97 - 110 mmol/L NILSA Comment:Testing performed by : [address] [address] CO2 26 22 - 32 mmol/L NILSA Comment:Testing performed by : [address] [address] Anion gap 13 2 - 15 mmol/L [facility] Comment:Testing performed by : [address] [address] BUN 30(H) 6 - 25 mg/dL [facility] Comment:Testing performed by : [address] [address] Creatinine 3.10(H) 0.60 - 1.10 mg/dL [facility] Comment:Testing performed by : [address] [address] Glucose 122 70 - 199 mg/dL [facility] Comment: Interpretive Data Fasting glucose [...] was last revised 2022. Testing performed by: [address] [address] Calcium 8.3(L) 8.5 - 10.3 mg/dL NILSA Comment:Testing performed by : [address] [address] Blood 12/25/2023 5:51 AM CDT 12/25/2023 6:01 AM CDT Julieta CUEVA LAB BLOOD ORDERABLES Final Re sult Performing Organization Address City/[facility] Co de Phone Number NILSA [address] [place] [address] * POCT glucose (12/24/2023 8:49 PM CDT) Glucose, POC 163 70 - 199 mg/dL Comment:Testing performed by : [address] [address] Blood 12/24/2023 8:49 PM CDT 12/24/2023 8:49 PM CDT Chavez Hartman MD LAB POCT ORDERABLES - ROSE CE Final Result Performing Organization Address [facility] [[email or web address]] de Phone Number CARLOS ENRI[address] [address] * POCT glucose (12/24/2023 5:49 PM CDT) Glucose, POC 164 70 - 199 mg/dL Comment:Testing performed by : [address] [address] Glucose comment 1 Use This Result NILSA RODRIGES Comment:Testing performed by : [address] [address] Glucose comment 2 RN/MD Notified NILSA RODRIGES Comment:Testing performed by : [address] [address] Blood 12/24/2023 5:49 PM CDT 12/24/2023 5:49 PM CDT Chavez Hartman MD LAB POCT ORDERABLES - ROSE CE Final Result Performing Organization Address [facility] Co de Phone Number NILSA [address] [address] * POCT glucose (12/24/2023 11:56 AM CDT) Glucose, POC 135 70 - 199 mg/dL Comment:Testing performed by : [facility], [address] [place] [address]., [address] Blood 12/24/2023 11:5 6 AM CDT 12/24/2023 11:56 AM CDT Chavez Hartman MD LAB POCT ORDERABLES - ROSE CE Final Result Performing Organization Address [facility] de Phone Number NILSA [facility]0 [facility] [place] [address] * POCT glucose (12/24/2023 8:27 AM CDT) [facility] Glucose, POC 137 70 - 199 mg/dL Comment:Testing performed by : [address] [address] Glucose comment 1 Use This Result NILSA Comment:Testing performed by : [address], [address] Glucose comment 2 RN/MD Notified NILSA Comment:Testing performed by : [address] [address] Blood 12/24/2023 8:27 AM CDT 12/24/2023 8:27 AM CDT Chavez Hartman MD LAB POCT ORDERABLES - ROSE CE Final Result Performing Organization Address [facility] de Phone Number [place] [address] [facility] [place] [address] * (ABNORMAL) eGFR (12/24/2023 7:16 AM CDT) [facility] eGFR 12(L) >=60 mL/min/1. 73 m2 Comment: Interpretive Data [...] was last reviewed 2021. Testing performed by: [address] [address] Blood 12/24/2023 7:16 AM CDT 12/24/2023 7:23 AM CDT us Julieta CUEVA LAB BLOOD ORDERABLES Final Re sult NILSA 5196 [facility] Department [place] [address] * (ABNORMAL) Differential, auto (12/24/2023 7:16 AM CDT) Pathologist [facility] Neutrophil abs 7.8(H) 1.5 - 6.5 K/cumm Comment:Testing performed by : [address] [address] Imm gran abs 0.0 0.0 - 0.1 K/cumm NILSA RODRIGES Comment:Testing performed by : [address] [address] Lymphocyte abs 2.6 0.8 - 3.3 K/cumm NILSA Comment:Testing performed by : [address] [address] Monocyte abs 0.8 0.2 - 0.8 K/cumm NILSA Comment:Testing performed by : [address] [address] Eosinophil abs 0.3 0.0 - 0.5 K/cumm NILSA Comment:Testing performed by : [address], [place]., [address] Basophil abs 0.0 0.0 - 0.1 K/cumm [facility] Comment:Testing performed by : [address] [address] Neutrophil pct 67.6 % [facility] Comment: Interpretive Data Percent cell count reference ranges are not reported, since discordance with absolute values may lead to misinterpretation of CBC data. Current Interpretive Data was last revised on 2017. Testing performed by: [address] [address] Imm gran pct 0.3 % [facility] Comment: Interpretive Data Percent cell count reference ranges are not reported, since discordance with absolute values may lead to misinterpretation of CBC data. Current Interpretive Data was last revised on 2017. Testing performed by: [address] [address] Lymphocyte pct 22.7 % [facility] Comment: Interpretive Data Percent cell count reference ranges are not reported, since discordance with absolute values may lead to misinterpretation of CBC data. Current Interpretive Data was last revised on 2017. Testing performed by: [address] [address] Monocyte pct 7.0 % [facility] Comment: Interpretive Data Percent cell count reference ranges are not reported, since discordance with absolute values may lead to misinterpretation of CBC data. Current Interpretive Data was last revised on 2017. Testing performed by: [address] [address] Eosinophil pct 2.3 % [facility] Comment: Interpretive Data Percent cell count reference ranges are not reported, since discordance with absolute values may lead to misinterpretation of CBC data. Current Interpretive Data was last revised on 2017. Testing performed by: [address] [address] Basophil pct 0.1 % NILSA Comment: Interpretive Data Percent cell count reference ranges are not reported, since discordance with absolute values may lead to misinterpretation of CBC data. Current Interpretive Data was last revised on 2017. Testing performed by: [address] [address] Blood 12/24/2023 7:16 AM CDT 12/24/2023 7:23 AM CDT us Julieta CUEVA LAB BLOOD ORDERABLES Final Re sult NILSA 4500 [facility] Department [place] [address] * (ABNORMAL) CBC with auto differential (12/24/2023 7:16 AM CDT) WBC 11.5(H) 3.8 - 9.9 K/cumm Comment:Testing performed by : [address] [address] Hgb 9.1(L) 11.9 - 15.5 g/dL NILSA Comment:Testing performed by : [address] [address] Hct 27.9(L) 35.6 - 45.5 % NILSA Comment:Testing performed by : [address] [address] Plt 263 150 - 400 K/cumm NILSA Comment:Testing performed by : [address] [address] MPV 10.3 9.1 - 12.3 fL NILSA Comment:Testing performed by : [address] [address] RBC 2.96(L) 3.90 - 5.20 M/cumm NILSA Comment:Testing performed by : [address] [address] MCV 94.3 81.3 - 96.4 fL NILSA Comment:Testing performed by : [address] [address] MCH 30.7 27.1 - 33.3 pg NILSA RODRIGES Comment:Testing performed by : [address] [address] MCHC 32.6 32.3 - 35.7 g/dL NILSA RODRIGES Comment:Testing performed by : [address] [address] RDW CV 13.9 11.1 - 14.9 % NILSA RODRIGES Comment:Testing performed by : [address] [address] RDW SD 47.6 35.7 - 48.1 fL NILSA RODRIGES Comment:Testing performed by : [address] [address] NRBC abs 0.00 0.00 - 0.01 K/cumm NILSA RODRIGES Comment:Testing performed by : [address] [address] Blood 12/24/2023 7:16 AM CDT 12/24/2023 7:23 AM CDT us Julieta CUEVA LAB BLOOD ORDERABLES Final Re sult NILSA 2768 [facility] Department of Laboratories [place], [place] [id number] * (ABNORMAL) Basic metabolic panel (12/24/2023 7:16 AM CDT) Sodium 137 135 - 145 mmol/L Comment:Testing performed by : [address] [address] Potassium, pl 4.3 3.3 - 4.9 mmol/L NILSA RODRIGES Comment:Testing performed by : [address] [address] Chloride 99 97 - 110 mmol/L NILSA RODRIGES Comment:Testing performed by : [address] [address] CO2 26 22 - 32 mmol/L NILSA RODRIGES Comment:Testing performed by : [address], [address] Anion gap 12 2 - 15 mmol/L NILSA RODRIGES Comment:Testing performed by : [address] [address] BUN 46(H) 6 - 25 mg/dL NILSA RODRIGES Comment:Testing performed by : [address] [address] Creatinine 3.70(H) 0.60 - 1.10 mg/dL NILSA RODRIGES Comment:Testing performed by : [address] [address] Glucose 133 70 - 199 mg/dL NILSA RODRIGES Comment: [...] was last revised 2022. Testing performed by: [address] [address] Calcium 8.5 8.5 - 10.3 mg/dL NILSA RODRIGES Comment:Testing performed by : [address] [address] Blood 12/24/2023 7:16 AM CDT 12/24/2023 7:23 AM CDT us Julieta CUEVA LAB BLOOD ORDERABLES Final Re sult NILSA RODRIGES 9644 [facility] Department [place] [address] * POCT glucose (12/23/2023 8:41 PM CDT) [facility] Signature Glucose, POC 145 70 - 199 mg/dL Comment:Testing performed by : [address] [address] Glucose comment 1 Use This Result NILSA RODRIGES Comment:Testing performed by : [address] [address] Glucose comment 2 RN/MD Notified NILSA RODRIGES Comment:Testing performed by : [address] [address] Blood 12/23/2023 8:41 PM CDT 12/23/2023 8:41 PM CDT Chavez Hartman MD LAB POCT ORDERABLES - ROSE CE Final Result Performing Organization Address City/[facility]/ZIP Co de Phone Number NILSA [address] [place] [address] * POCT glucose (12/23/2023 4:44 PM CDT) Glucose, POC 82 70 - 199 mg/dL Comment:Testing performed by : [address] [address] Blood 12/23/2023 4:44 PM CDT 12/23/2023 4:44 PM CDT Chavez Hartman MD LAB POCT ORDERABLES - ROSE CE Final Result Performing Organization Address [facility] Co de Phone Number CARLOS ENRIQUE[address] [place] [address] * POCT glucose (12/23/2023 12:56 PM CDT) Glucose, POC 149 70 - 199 mg/dL Comment:Testing performed by : [address] [address] Blood 12/23/2023 12:5 6 PM CDT 12/23/2023 12:56 PM CDT Chavez Hartman MD LAB POCT ORDERABLES - ROSE CE Final Result Performing Organization Address City/[facility]/ZIP Co de Phone Number [address] [place] [address] * (ABNORMAL) eGFR (12/23/2023 9:09 AM CDT) eGFR 17(L) >=60 mL/min/1. 73 m2 [...] was last reviewed 2021. Testing performed by: [facility], [address] [place] [address]., [address] Blood 12/23/2023 9:09 AM CDT 12/23/2023 9:13 AM CDT us Julieta CUEVA LAB BLOOD ORDERABLES Final Re sult NILSA 6958 [facility] Department [place] [address] * (ABNORMAL) Differential, auto (12/23/2023 9:09 AM CDT) Pathologist [facility] Neutrophil abs 8.1(H) 1.5 - 6.5 K/cumm Comment:Testing performed by : [facility], [address] [place] [address], [place]., [address] Imm gran abs 0.0 0.0 - 0.1 K/cumm NILSA Comment:Testing performed by : [address], [place]., [address] Lymphocyte abs 2.2 0.8 - 3.3 K/cumm [facility] Comment:Testing performed by : [address], [place]., [address] Monocyte abs 0.9(H) 0.2 - 0.8 K/cumm [facility] Comment:Testing performed by : [address], [place]., [address] Eosinophil abs 0.2 0.0 - 0.5 K/cumm [facility] Comment:Testing performed by : [address] [address] Basophil abs 0.0 0.0 - 0.1 K/cumm [facility] Comment:Testing performed by : [address] [address] Neutrophil pct 70.8 % [facility] Comment: Interpretive Data Percent cell count reference ranges are not reported, since discordance with absolute values may lead to misinterpretation of CBC data. Current Interpretive Data was last revised on 2017. Testing performed by: [address] [address] Imm gran pct 0.4 % CERNER Comment: Interpretive Data Percent cell count reference ranges are not reported, since discordance with absolute values may lead to misinterpretation of CBC data. Current Interpretive Data was last revised on 2017. Testing performed by: [address] [address] Lymphocyte pct 19.2 % CERNER Comment: Interpretive Data Percent cell count reference ranges are not reported, since discordance with absolute values may lead to misinterpretation of CBC data. Current Interpretive Data was last revised on 2017. Testing performed by: [address] [address] Monocyte pct 8.2 % CERNER Comment: Interpretive Data Percent cell count reference ranges are not reported, since discordance with absolute values may lead to misinterpretation of CBC data. Current Interpretive Data was last revised on 2017. Testing performed by: [address] [address] Eosinophil pct 1.3 % NILSA Comment: Interpretive Data Percent cell count reference ranges are not reported, since discordance with absolute values may lead to misinterpretation of CBC data. Current Interpretive Data was last revised on 2017. Testing performed by: [address] [address] Basophil pct 0.1 % NILSA Comment: Interpretive Data Percent cell count reference ranges are not reported, since discordance with absolute values may lead to misinterpretation of CBC data. Current Interpretive Data was last revised on 2017. Testing performed by: [address] [address] Blood 12/23/2023 9:09 AM CDT 12/23/2023 9:13 AM CDT us Julieta CUEVA LAB BLOOD ORDERABLES Final [facility]ult [facility] 2617 [facility] Department [place] [address] * (ABNORMAL) CBC with auto differential (12/23/2023 9:09 AM CDT) WBC 11.4(H) 3.8 - 9.9 K/cumm Comment:Testing performed by : [address] [address] Hgb 9.9(L) 11.9 - 15.5 g/dL NILSA Comment:Testing performed by : [address] [address] Hct 30.2(L) 35.6 - 45.5 % NILSA Comment:Testing performed by : [address] [address] Plt 240 150 - 400 K/cumm NILSA Comment:Testing performed by : [address] [address] MPV 10.2 9.1 - 12.3 fL NILSA RODRIGES Comment:Testing performed by : [address] [address] RBC 3.18(L) 3.90 - 5.20 M/cumm NILSA RODRIGES Comment:Testing performed by : [address] [address] MCV 95.0 81.3 - 96.4 fL NILSA Comment:Testing performed by : [address] [address] MCH 31.1 27.1 - 33.3 pg NILSA Comment:Testing performed by : [address] [address] MCHC 32.8 32.3 - 35.7 g/dL NILSA Comment:Testing performed by : [address], [address] RDW CV 13.8 11.1 - 14.9 % NILSA Comment:Testing performed by : [address], [address] RDW SD 47.9 35.7 - 48.1 fL NILSA Comment:Testing performed by : [address] [address] NRBC abs 0.02(H) 0.00 - 0.01 K/cumm NILSA Comment:Testing performed by : [address] [address] Blood 12/23/2023 9:09 AM CDT 12/23/2023 9:13 AM CDT us Julieta CUEVA LAB BLOOD ORDERABLES Final Re sult NILSA RODRIGES 7520 [facility] Department of Laboratories [place], [place] [id number] * (ABNORMAL) Basic metabolic panel (12/23/2023 9:09 AM CDT) Sodium 140 135 - 145 mmol/L Comment:Testing performed by : [address] [address] Potassium, pl 4.2 3.3 - 4.9 mmol/L NILSA Comment:Testing performed by : [address] [address] Chloride 101 97 - 110 mmol/L NILSA Comment:Testing performed by : [address], [place]., [address] CO2 25 22 - 32 mmol/L NILSA Comment:Testing performed by : [address], [place]., [address] Anion gap 14 2 - 15 mmol/L [facility] Comment:Testing performed by : [address], [place]., [address] BUN 30(H) 6 - 25 mg/dL [facility] Comment:Testing performed by : [address], [place]., [address] Creatinine 2.80(H) 0.60 - 1.10 mg/dL NILSA Comment:Testing performed by : [address], [place]., [address] Glucose 114 70 - 199 mg/dL [facility] Comment: Interpretive Data Fasting glucose [...] was last revised 2022. Testing performed by: [address] [address] Calcium 8.9 8.5 - 10.3 mg/dL NILSA Comment:Testing performed by : [address], [place]., [address] Blood 12/23/2023 9:09 AM CDT 12/23/2023 9:13 AM CDT Julieta CUEVA LAB BLOOD ORDERABLES Final Re sult Performing Organization Address City/[facility]/ZIP Co de Phone Number NILSA [address] [place] [address] * POCT glucose (12/23/2023 9:06 AM CDT) Glucose, POC 107 70 - 199 mg/dL Comment:Testing performed by : [address] [address] Blood 12/23/2023 9:06 AM CDT 12/23/2023 9:06 AM CDT Chavez Hartman MD LAB POCT ORDERABLES - ROSE CE Final Result Performing Organization Address [facility] [[email or web address]] de Phone Number NILSA [address] [address] * POCT glucose (12/22/2023 7:50 PM CDT) Glucose, POC 109 70 - 199 mg/dL Comment:Testing performed by : [address] [address] Glucose comment 1 Use This Result NILSA RODRIGES Comment:Testing performed by : [address] [address] Glucose comment 2 RN/MD Notified NILSA RODRIGES Comment:Testing performed by : [address] [address] Blood 12/22/2023 7:50 PM CDT 12/22/2023 7:50 PM CDT Chavez Hartman MD LAB POCT ORDERABLES - ROSE CE Final Result Performing Organization Address City/[facility] Co de Phone Number NILSA [address] [phone] * POCT glucose (12/22/2023 5:21 PM CDT) Glucose, POC 128 70 - 199 mg/dL Comment:Testing performed by : [facility], [address] [place] [address], [place]., [address] Blood 12/22/2023 5:21 PM CDT 12/22/2023 5:21 PM CDT Chavez Hartman MD LAB POCT ORDERABLES - ROSE CE Final Result NILSA 7357 [facility] Department [place] [address] * EEG (12/22/2023 2:11 PM CDT) Anatomical Region Laterality Modality Other Narrative 12/22/2023 2:56 PM CDT Wilner Buckley MD ? 12/22/2023 ??3:01 PM Reason for exam: ??passing out during dialysis Technical: This is a digitally recorded electroencephalogram. It was just over 30 minutes long. ??The international 10-20 electrode placement system is used for scalp electrode placement. Eighteen channels of scalp EEG are recorded. One channel was used for EOG. Another channel was used for ECG. The data are stored digitally and reviewed in reformatted montages for optimal display. Background: ??6-7 hertz theta activity was seen bilaterally. ??It was relatively symmetric. ??It was not particularly well reactive to eye opening or closure. ??Overall recording was somewhat disorganized. ??Frequently seen was delta range slowing throughout. Description: No focal slowing was seen. No seizure like activity was observed during this recording. Patient entered into periods of drowsiness and light sleep. Hyperventilation was not performed due to patient's clinical condition. ?? Photic stimulation was performed without any additional abnormalities. ?? Impression: ??Abnormal EEG. ??Generalized slowing suggests diffuse cerebral dysfunction, as can be seen in encephalopathy due to various etiologies. ??No focal slowing no seizure like activity was observed. Correlation with clinical findings is needed. Kenyetta Morgan MD NEUROLOGY ORDERABLES Fin al Result * POCT glucose (12/22/2023 11:25 AM CDT) Pathologist [facility] Glucose, POC 121 70 - 199 mg/dL Comment:Testing performed by : [facility], [address] [place] [address]., [address] Blood 12/22/2023 11:2 5 AM CDT 12/22/2023 11:25 AM CDT us Chavez Hartman MD LAB POCT ORDERABLES - ROSE CE Final Result NILSA 3018 [facility] Department [place] [address] * (ABNORMAL) eGFR (12/22/2023 9:11 AM CDT) [facility] eGFR 14(L) >=60 mL/min/1. 73 m2 Comment: [...] was last reviewed 2021. Testing performed by: [facility], [address] [place] [address]., [address] Blood 12/22/2023 9:11 AM CDT 12/22/2023 9:21 AM CDT us Julieta CUEVA LAB BLOOD ORDERABLES Final Re sult NILSA 8118 [facility] Department [place] [address] * (ABNORMAL) Differential, auto (12/22/2023 9:11 AM CDT) Neutrophil abs 8.5(H) 1.5 - 6.5 K/cumm Comment:Testing performed by : [address] [address] Imm gran abs 0.1 0.0 - 0.1 K/cumm NILSA Comment:Testing performed by : [address] [address] Lymphocyte abs 1.8 0.8 - 3.3 K/cumm NILSA Comment:Testing performed by : [address] [address] Monocyte abs 1.1(H) 0.2 - 0.8 K/cumm NILSA Comment:Testing performed by : [address] [address] Eosinophil abs 0.1 0.0 - 0.5 K/cumm NILSA Comment:Testing performed by : [address] [address] Basophil abs 0.0 0.0 - 0.1 K/cumm NILSA Comment:Testing performed by : [address] [address] Neutrophil pct 74.1 % NILSA Comment: Interpretive Data Percent cell count reference ranges are not reported, since discordance with absolute values may lead to misinterpretation of CBC data. Current Interpretive Data was last revised on 2017. Testing performed by: [address] [address] Imm gran pct 0.5 % NILSA Comment: Interpretive Data Percent cell count reference ranges are not reported, since discordance with absolute values may lead to misinterpretation of CBC data. Current Interpretive Data was last revised on 2017. Testing performed by: [address] [address] Lymphocyte pct 15.6 % [facility] Comment: Interpretive Data Percent cell count reference ranges are not reported, since discordance with absolute values may lead to misinterpretation of CBC data. Current Interpretive Data was last revised on 2017. Testing performed by: [address] [address] Monocyte pct 9.3 % [facility] Comment: Interpretive Data Percent cell count reference ranges are not reported, since discordance with absolute values may lead to misinterpretation of CBC data. Current Interpretive Data was last revised on 2017. Testing performed by: [address] [address] Eosinophil pct 0.4 % [facility] Comment: Interpretive Data Percent cell count reference ranges are not reported, since discordance with absolute values may lead to misinterpretation of CBC data. Current Interpretive Data was last revised on 2017. Testing performed by: [address] [address] Basophil pct 0.1 % [facility] Comment: Interpretive Data Percent cell count reference ranges are not reported, since discordance with absolute values may lead to misinterpretation of CBC data. Current Interpretive Data was last revised on 2017. Testing performed by: [address] [address] Blood 12/22/2023 9:11 AM CDT 12/22/2023 9:21 AM CDT us Julieta CUEVA LAB BLOOD ORDERABLES Final Re sult NILSA RODRIGES 9527 [facility] Department [place] [address] * (ABNORMAL) CBC with auto differential (12/22/2023 9:11 AM CDT) WBC 11.5(H) 3.8 - 9.9 K/cumm Comment:Testing performed by : [address] [address] Hgb 8.8(L) 11.9 - 15.5 g/dL NILSA Comment:Testing performed by : [address], [address] Hct 27.0(L) 35.6 - 45.5 % NILSA Comment:Testing performed by : [address], [address] Plt 241 150 - 400 K/cumm NILSA Comment:Testing performed by : [address], [address] MPV 11.0 9.1 - 12.3 fL NILSA Comment:Testing performed by : [address], [address] RBC 2.90(L) 3.90 - 5.20 M/cumm NILSA Comment:Testing performed by : [address], [address] MCV 93.1 81.3 - 96.4 fL NILSA Comment:Testing performed by : [address], [address] MCH 30.3 27.1 - 33.3 pg NILSA Comment:Testing performed by : [address], [address] MCHC 32.6 32.3 - 35.7 g/dL NILSA Comment:Testing performed by : [address], [address] RDW CV 14.1 11.1 - 14.9 % NILSA Comment:Testing performed by : [address], [address] RDW SD 47.7 35.7 - 48.1 fL NILSA Comment:Testing performed by : [address], [address] NRBC abs 0.00 0.00 - 0.01 K/cumm NILSA Comment:Testing performed by : [address], [address] Blood 12/22/2023 9:11 AM CDT 12/22/2023 9:21 AM CDT us Julieta CUEVA LAB BLOOD ORDERABLES Final Re sult NILSA 7746 [facility] Department [place] [address] * (ABNORMAL) Basic metabolic panel (12/22/2023 9:11 AM CDT) Sodium 137 135 - 145 mmol/L Comment:Testing performed by : [address] [address] Potassium, pl 4.5 3.3 - 4.9 mmol/L NILSA Comment:Testing performed by : [address] [address] Chloride 97 97 - 110 mmol/L NILSA Comment:Testing performed by : [address] [address] CO2 26 22 - 32 mmol/L NILSA Comment:Testing performed by : [address] [address] Anion gap 14 2 - 15 mmol/L NILSA Comment:Testing performed by : [address] [address] BUN 46(H) 6 - 25 mg/dL NILSA Comment:Testing performed by : [address] [address] Creatinine 3.30(H) 0.60 - 1.10 mg/dL NILSA Comment:Testing performed by : [address] [address] Glucose 151 70 - 199 mg/dL NILSA Comment: Interpretive [...] was last revised 2022. Testing performed by: [address] [address] Calcium 8.7 8.5 - 10.3 mg/dL NILSA RODRIGES Comment:Testing performed by : [address] [address] Blood 12/22/2023 9:11 AM CDT 12/22/2023 9:21 AM CDT Julieta CUEVA LAB BLOOD ORDERABLES Final Re sult Performing Organization Address City/[facility]/ZIP Co de Phone Number [address] [employer] [place] [address] * POCT glucose (12/22/2023 8:50 AM CDT) Glucose, POC 115 70 - 199 mg/dL Comment:Testing performed by : [address] [address] Blood 12/22/2023 8:50 AM CDT 12/22/2023 8:50 AM CDT Chavez Hartman MD LAB POCT ORDERABLES - ROSE CE Final Result Performing Organization Address City/[facility]/ZIP Co de Phone Number [address] [address] * POCT glucose (12/21/2023 10:19 PM CDT) Glucose, POC 132 70 - 199 mg/dL Comment:Testing performed by : [address] [address] Glucose comment 1 Use This Result NILSA RODRIGES Comment:Testing performed by : [address] [address] Glucose comment 2 RN/MD Notified NILSA RODRIGES Comment:Testing performed by : [address] [address] Blood 12/21/2023 10:1 9 PM CDT 12/21/2023 10:19 PM CDT Audie Spencer MD LAB POCT ORDERABLES - D EVICE Final Result NILSA [address] [place] [address] * POCT glucose (12/21/2023 4:23 PM CDT) Glucose, POC 136 70 - 199 mg/dL Comment:Testing performed by : [address] [address] Glucose comment 1 Use This Result NILSA Comment:Testing performed by : [address] [address] Blood 12/21/2023 4:23 PM CDT 12/21/2023 4:23 PM CDT Audie Spencer MD LAB POCT ORDERABLES - D EVICE Final Result Performing Organization Address [facility]/ZIP Co de Phone Number NILSA [address] [address] * POCT glucose (12/21/2023 12:19 PM CDT) Glucose, POC 145 70 - 199 mg/dL Comment:Testing performed by : [address] [address] Glucose comment 1 Use This Result NILSA Comment:Testing performed by : [address] [address] Blood 12/21/2023 12:1 9 PM CDT 12/21/2023 12:19 PM CDT Audie Spencer MD LAB POCT ORDERABLES - D EVICE Final Result NILSA [address] [place] [address] * Carotids Duplex Bilateral (12/21/2023 12:11 PM CDT) Anatomical Region Laterality Modality Vascular Bilateral Ultrasound 12/21/2023 Narrative 12/22/2023 8:56 AM CDT [employer] Job ID: [id number] [employer] Document ID: [id number] Dictated date/time: [id number] REASON FOR STUDY Syncope. Vertebral artery flow is antegrade bilaterally. ??There is minimal plaque in both internal carotid arteries with less than 50% diameter stenoses. ?? There is no significant increase in peak systolic velocity in either internal carotid artery. ??The peak systolic velocity on the right is 89 cm/sec and on the left is 82 cm/sec. ??The external carotid velocities on the right are 153 cm/sec and on the left 135 cm/sec. IMPRESSION No significant stenosis in either internal carotid artery. Job ID/Internal Job ID: ??[id number] Julieta CUEVA IMG US PROCEDURES Final Resul t * Hepatitis B surface antibody (immune status) Blood (12/21/2023 11:05 AM CDT) HBsAb (immune status) Reactive Comment: Interpretive Data Nonreactive: This result is consistent with a lack of immunity to Hepatitis B Virus when used in the setting of routine screening. Equivocal: The immune status of the individual should be further assessed, if appropriate, after consideration of clinical status, risk factors, and additional diagnostic information. Reactive: This result is consistent with immunity to Hepatitis B Virus when used in the setting of routine screening. Current interpretive data was last revised on 19. HBsAb (immune status) index >1,000.0 mIUnits/m L NILSA RODRIGES Blood 12/21/2023 11:0 5 AM CDT 12/21/2023 12:35 PM CDT Navjot Anders MD LAB MICROBIOLOGY - GENERA L ORDERABLES Final Result NILSA RODRIGES [address] [facility] [place] [address] * Hepatitis B Surface Antigen Blood (12/21/2023 11:05 AM CDT) [facility] HepBsAg Nonreactive Nonreactive Blood 12/21/2023 11:0 5 AM CDT 12/21/2023 12:35 PM CDT Navjot Anders MD LAB MICROBIOLOGY - GENERA L ORDERABLES Final Result Performing Organization Address [facility] Co de Phone Number [facility] [address] [place] [address] * POCT glucose (12/21/2023 7:41 AM CDT) [facility] Glucose, POC 153 70 - 199 mg/dL Comment:Testing performed by : [address] [address] Glucose comment 1 Use This Result [facility] Comment:Testing performed by : [facility], [address] [place] [address]., [address] Blood 12/21/2023 7:41 AM CDT 12/21/2023 7:41 AM CDT Audie Spencer MD LAB POCT ORDERABLES - D EVICE Final Result Performing Organization Address [facility] [[email or web address]] de Phone Number [facility] [address] [place] [address] * (ABNORMAL) eGFR (12/21/2023 4:45 AM CDT) [facility] eGFR 8(L) >=60 mL/min/1. 73 m2 Comment: [...] was last reviewed 2021. Testing performed by: [address] [address] Blood 12/21/2023 4:45 AM CDT 12/21/2023 5:39 AM CDT us Julieta CUEVA LAB BLOOD ORDERABLES Final Re sult NILSA 7893 [facility] Department [place] [address] * (ABNORMAL) Differential, auto (12/21/2023 4:45 AM CDT) Neutrophil abs 10.8(H) 1.5 - 6.5 K/cumm Comment:Testing performed by : [address] [address] Imm gran abs 0.1 0.0 - 0.1 K/cumm NILSA RODRIGES Comment:Testing performed by : [address] [address] Lymphocyte abs 1.2 0.8 - 3.3 K/cumm NILSA Comment:Testing performed by : [address] [address] Monocyte abs 0.8 0.2 - 0.8 K/cumm NILSA Comment:Testing performed by : [address] [address] Eosinophil abs 0.0 0.0 - 0.5 K/cumm NILSA Comment:Testing performed by : [address] [address] Basophil abs 0.0 0.0 - 0.1 K/cumm NILSA Comment:Testing performed by : [address] [address] Neutrophil pct 84.0 % [facility] Comment: Interpretive Data Percent cell count reference ranges are not reported, since discordance with absolute values may lead to misinterpretation of CBC data. Current Interpretive Data was last revised on 2017. Testing performed by: [address] [address] Imm gran pct 0.5 % [facility] Comment: Interpretive Data Percent cell count reference ranges are not reported, since discordance with absolute values may lead to misinterpretation of CBC data. Current Interpretive Data was last revised on 2017. Testing performed by: [address] [address] Lymphocyte pct 9.3 % [facility] Comment: Interpretive Data Percent cell count reference ranges are not reported, since discordance with absolute values may lead to misinterpretation of CBC data. Current Interpretive Data was last revised on 2017. Testing performed by: [address] [address] Monocyte pct 6.1 % [facility] Comment: Interpretive Data Percent cell count reference ranges are not reported, since discordance with absolute values may lead to misinterpretation of CBC data. Current Interpretive Data was last revised on 2017. Testing performed by: [address] [address] Eosinophil pct 0.0 % NILSA Comment: Interpretive Data Percent cell count reference ranges are not reported, since discordance with absolute values may lead to misinterpretation of CBC data. Current Interpretive Data was last revised on 2017. Testing performed by: [address] [address] Basophil pct 0.1 % NILSA Comment: Interpretive Data Percent cell count reference ranges are not reported, since discordance with absolute values may lead to misinterpretation of CBC data. Current Interpretive Data was last revised on 2017. Testing performed by: [address] [address] Blood 12/21/2023 4:45 AM CDT 12/21/2023 5:39 AM CDT us Julieta CUEVA LAB BLOOD ORDERABLES Final Re sult [facility] 06[address] [facility] Department of Laboratories [place], [place] [id number] * (ABNORMAL) CBC with auto differential (12/21/2023 4:45 AM CDT) WBC 12.9(H) 3.8 - 9.9 K/cumm Comment:Testing performed by : [address] [address] Hgb 8.1(L) 11.9 - 15.5 g/dL NILSA Comment:Testing performed by : [address] [address] Hct 25.4(L) 35.6 - 45.5 % NILSA Comment:Testing performed by : [address] [address] Plt 232 150 - 400 K/cumm NILSA Comment:Testing performed by : [address] [address] MPV 11.0 9.1 - 12.3 fL NILSA Comment:Testing performed by : [address] [address] RBC 2.67(L) 3.90 - 5.20 M/cumm NILSA Comment:Testing performed by : [address] [address] MCV 95.1 81.3 - 96.4 fL NILSA Comment:Testing performed by : [address] [address] MCH 30.3 27.1 - 33.3 pg NILSA RODRIGES Comment:Testing performed by : [address] [address] MCHC 31.9(L) 32.3 - 35.7 g/dL NILSA RODRIGES Comment:Testing performed by : [address] [address] RDW CV 14.6 11.1 - 14.9 % NILSA RODRIGES Comment:Testing performed by : [address] [address] RDW SD 50.4(H) 35.7 - 48.1 fL NILSA RODRIGES Comment:Testing performed by : [address] [address] NRBC abs 0.00 0.00 - 0.01 K/cumm NILSA RODRIGES Comment:Testing performed by : [address] [address] Blood 12/21/2023 4:45 AM CDT 12/21/2023 5:39 AM CDT us Julieta CUEVA LAB BLOOD ORDERABLES Final Re sult NILSA RODRIGES [address] [facility] Department [place] [address] * (ABNORMAL) Basic metabolic panel (12/21/2023 4:45 AM CDT) Sodium 134(L) 135 - 145 mmol/L Comment:Testing performed by : [address] [address] Potassium, pl 5.2(H) 3.3 - 4.9 mmol/L NILSA RODRIGES Comment:Testing performed by : [address] [address] Chloride 101 97 - 110 mmol/L NILSA RODRIGES Comment:Testing performed by : [address] [address] CO2 20(L) 22 - 32 mmol/L NILSA RODRIGES Comment:Testing performed by : [address] [address] Anion gap 13 2 - 15 mmol/L NILSA Comment:Testing performed by : [address] [address] BUN 79(H) 6 - 25 mg/dL NILSA Comment:Testing performed by : [address] [address] Creatinine 5.10(H) 0.60 - 1.10 mg/dL NILSA Comment:Testing performed by : [address] [address] Glucose 143 70 - 199 mg/dL NILSA Comment: Interpretive [...] was last revised 2022. Testing performed by: [address] [address] Calcium 9.1 8.5 - 10.3 mg/dL NILSA Comment:Testing performed by : [address] [address] Blood 12/21/2023 4:45 AM CDT 12/21/2023 5:39 AM CDT us Julieta CUEVA LAB BLOOD ORDERABLES Final Re sult NILSA [address] [facility] Department [place] [address] * POCT glucose (12/20/2023 8:44 PM CDT) [facility] Glucose, POC 165 70 - 199 mg/dL Comment:Testing performed by : [address] [address] Glucose comment 1 Use This Result NILSA RODRIGES Comment:Testing performed by : [address] [address] Glucose comment 2 RN/MD Notified NILSA Comment:Testing performed by : [address] [address] Blood 12/20/2023 8:44 PM CDT 12/20/2023 8:44 PM CDT Audie Spencer MD LAB POCT ORDERABLES - D EVICE Final Result Performing Organization Address [email or web address]] de Phone Number NILSA [address] [place] [address] * POCT glucose (12/20/2023 5:07 PM CDT) Glucose, POC 184 70 - 199 mg/dL Comment:Testing performed by : [address] [address] Blood 12/20/2023 5:07 PM CDT 12/20/2023 5:07 PM CDT Audie Spencer MD LAB POCT ORDERABLES - D EVICE Final Result Performing Organization Address [facility] [[email or web address]] de Phone Number [address] [address] * POCT glucose (12/20/2023 11:58 AM CDT) Glucose, POC 194 70 - 199 mg/dL Comment:Testing performed by : [address] [address] Glucose comment 1 Use This Result NILSA RODRIGES Comment:Testing performed by : [address] [address] Glucose comment 2 RN/MD Notified NILSA Comment:Testing performed by : [address] [address] Blood 12/20/2023 11:5 8 AM CDT 12/20/2023 11:58 AM CDT Audie Spencer MD LAB POCT ORDERABLES - D EVICE Final Result Performing Organization Address [facility] Co de Phone Number NILSA [address] [facility] [place] [address] * POCT glucose (12/20/2023 7:24 AM CDT) [facility] Glucose, POC 178 70 - 199 mg/dL Comment:Testing performed by : [address] [address] Glucose comment 1 Use This Result NILSA RODRIGES Comment:Testing performed by : [address], [address] Glucose comment 2 RN/MD Notified NILSA Comment:Testing performed by : [address] [address] Blood 12/20/2023 7:24 AM CDT 12/20/2023 7:24 AM CDT Audie Spencer MD LAB POCT ORDERABLES - D EVICE Final Result Performing Organization Address [facility] Co de Phone Number NILSA [address] [facility] [employer] [place] [address] * (ABNORMAL) eGFR (12/20/2023 3:59 AM CDT) [facility] eGFR 10(L) >=60 mL/min/1. 73 m2 Comment: [...] was last reviewed 2021. Testing performed by: [address] [address] Blood 12/20/2023 3:59 AM CDT 12/20/2023 5:09 AM CDT us Julieta CUEVA LAB BLOOD ORDERABLES [facility] [address] [facility] Department of Laboratories [place], [place] [id number] * (ABNORMAL) Differential, auto (12/20/2023 3:59 AM CDT) Neutrophil abs 12.9(H) 1.5 - 6.5 K/cumm Comment:Testing performed by : [address] [address] Imm gran abs 0.1 0.0 - 0.1 K/cumm NILSA Comment:Testing performed by : [address] [address] Lymphocyte abs 1.3 0.8 - 3.3 K/cumm NILSA Comment:Testing performed by : [address] [address] Monocyte abs 0.7 0.2 - 0.8 K/cumm NILSA Comment:Testing performed by : [address] [address] Eosinophil abs 0.0 0.0 - 0.5 K/cumm NILSA Comment:Testing performed by : [address] [place]., [address] Basophil abs 0.0 0.0 - 0.1 K/cumm NILSA Comment:Testing performed by : [address] [address] Neutrophil pct 86.3 % [facility] Comment: Interpretive Data Percent cell count reference ranges are not reported, since discordance with absolute values may lead to misinterpretation of CBC data. Current Interpretive Data was last revised on 2017. Testing performed by: [address] [address] Imm gran pct 0.4 % [facility] Comment: Interpretive Data Percent cell count reference ranges are not reported, since discordance with absolute values may lead to misinterpretation of CBC data. Current Interpretive Data was last revised on 2017. Testing performed by: [address] [address] Lymphocyte pct 8.7 % [facility] Comment: Interpretive Data Percent cell count reference ranges are not reported, since discordance with absolute values may lead to misinterpretation of CBC data. Current Interpretive Data was last revised on 2017. Testing performed by: [address] [address] Monocyte pct 4.5 % [facility] Comment: Interpretive Data Percent cell count reference ranges are not reported, since discordance with absolute values may lead to misinterpretation of CBC data. Current Interpretive Data was last revised on 2017. Testing performed by: [address] [address] Eosinophil pct 0.0 % [facility] Comment: Interpretive Data Percent cell count reference ranges are not reported, since discordance with absolute values may lead to misinterpretation of CBC data. Current Interpretive Data was last revised on 2017. Testing performed by: [address] [address] Basophil pct 0.1 % [facility] Comment: Interpretive Data Percent cell count reference ranges are not reported, since discordance with absolute values may lead to misinterpretation of CBC data. Current Interpretive Data was last revised on 2017. Testing performed by: [address] [address] Blood 12/20/2023 3:59 AM CDT 12/20/2023 5:09 AM CDT us Julieta CUEVA LAB BLOOD ORDERABLES Final Re sult [facility] [address] [facility] Department [place] [address] * (ABNORMAL) CBC with auto differential (12/20/2023 3:59 AM CDT) WBC 15.0(H) 3.8 - 9.9 K/cumm Comment:Testing performed by : [address] [address] Hgb 8.9(L) 11.9 - 15.5 g/dL NILSA Comment:Testing performed by : [address] [address] Hct 27.0(L) 35.6 - 45.5 % NILSA Comment:Testing performed by : [address] [address] Plt 245 150 - 400 K/cumm NILSA Comment:Testing performed by : [address] [address] MPV 11.1 9.1 - 12.3 fL NILSA Comment:Testing performed by : [address] [address] RBC 2.85(L) 3.90 - 5.20 M/cumm NILSA Comment:Testing performed by : [address] [address] MCV 94.7 81.3 - 96.4 fL NILSA Comment:Testing performed by : [address] [address] MCH 31.2 27.1 - 33.3 pg NILSA Comment:Testing performed by : [address], [address] MCHC 33.0 32.3 - 35.7 g/dL NILSA ZAHIRA Comment:Testing performed by : [address] [address] RDW CV 14.6 11.1 - 14.9 % NILSA RODRIGES Comment:Testing performed by : [address] [address] RDW SD 50.3(H) 35.7 - 48.1 fL NILSA RODRIGES Comment:Testing performed by : [address] [address] NRBC abs 0.00 0.00 - 0.01 K/cumm NILSA RODRIGES Comment:Testing performed by : [address] [address] Blood 12/20/2023 3:59 AM CDT 12/20/2023 5:09 AM CDT us Julieta CUEVA LAB BLOOD ORDERABLES Final Re sult Performing Organization Address City/State/[facility] Co de Phone Number NILSA [address] Department [place] [address] * (ABNORMAL) Basic metabolic panel (12/20/2023 3:59 AM CDT) Sodium 139 135 - 145 mmol/L Comment:Testing performed by : [address] [address] Potassium, pl 5.0(H) 3.3 - 4.9 mmol/L NILSA RODRIGES Comment:Testing performed by : [address], [address] Chloride 103 97 - 110 mmol/L NILSA Comment:Testing performed by : [address] [address] CO2 22 22 - 32 mmol/L NILSA RODRIGES Comment:Testing performed by : [address] [address] Anion gap 14 2 - 15 mmol/L NILSA RODRIGES Comment:Testing performed by : [address] [address] BUN 61(H) 6 - 25 mg/dL NILSA RODRIGES Comment:Testing performed by : [address] [address] Creatinine 4.50(H) 0.60 - 1.10 mg/dL NILSA Comment:Testing performed by : [address] [address] Glucose 212(H) 70 - 199 mg/dL NILSA Comment: Interpretive [...] was last revised 2022. Testing performed by: [address] [address] Calcium 9.6 8.5 - 10.3 mg/dL NILSA Comment:Testing performed by : [address] [address] Blood 12/20/2023 3:59 AM CDT 12/20/2023 5:09 AM CDT us Julieta CUEVA LAB BLOOD ORDERABLES Final Re sult [facility] 4057 [facility] Department [place] [address] * (ABNORMAL) Troponin T high-sensitivity 6-hour (12/20/2023 3:59 AM CDT) Trop T hs 35(H) <=14 ng/L Comment: Ref Range High Interpretive Data For further hscTnT resources including the diagnostic algorithm and an aid in interpretation, copy and paste this link: https://nrl.testcatalog.org/show/hsTrop Current Interpretive Data last revised 2020. Testing performed by: [address] [address] Trop T hs delta See Comment ng/L NILSA RODRIGES Comment: Inappropriate collection time to report a delta. Testing performed by: [address] [address] Trop T hs pct delta See Comment % NILSA RODRIGES Comment: Inappropriate collection time to report a delta. Testing performed by: [facility], [address] [place] [address]., [address] Trop T hs interp See Comment NILSA RODRIGES Comment: Inappropriate collection time to report a delta. Testing performed by: [address] [address] Blood 12/20/2023 3:59 AM CDT 12/20/2023 5:09 AM CDT us Markie Sofia MD LAB BLOOD ORDERABLES F inal Result Performing Organization Address [facility] Co de Phone Number [address] [employer] [place] [address] * (ABNORMAL) POCT glucose (12/20/2023 2:30 AM CDT) Glucose, POC 242(H) 70 - 199 mg/dL Comment:Testing performed by : [address] [address] Glucose comment 1 Use This Result NILSA RODRIGES Comment:Testing performed by : [address] [address] Blood 12/20/2023 2:30 AM CDT 12/20/2023 2:30 AM CDT us Audie Spencer MD LAB POCT ORDERABLES - D EVICE Final Result Performing Organization Address [facility] Co de Phone Number [address] [place] [address] * (ABNORMAL) POCT glucose (12/19/2023 9:07 PM CDT) Glucose, POC 265(H) 70 - 199 mg/dL Comment:Testing performed by : [address] [address] Glucose comment 1 Use This Result NILSA RODRIGES Comment:Testing performed by : [facility], [address] [place] [address]., [address] Blood 12/19/2023 9:07 PM CDT 12/19/2023 9:07 PM CDT us Audie Spencer MD LAB POCT ORDERABLES - D EVICE Final Result Performing Organization Address [facility] Co de Phone Number NILSA [address] [employer] [place] [address] * (ABNORMAL) Troponin T high-sensitivity 4-hour (12/19/2023 6:27 PM CDT) Trop T hs 39(H) <=14 ng/L Comment: Interpretive Data For further hscTnT resources including the diagnostic algorithm and an aid in interpretation, copy and paste this link: https://nrl.testcatalog.org/show/hsTrop Current Interpretive Data last revised 2020. Testing performed by: [facility], [address] [place] [address]., [address] Trop T hs delta 5 ng/L NILSA RODRIGES Comment:Testing performed by : [address] [address] Trop T hs interp Equivocal NILSA Comment:Testing performed by : [address] [address] Blood 12/19/2023 6:27 PM CDT 12/19/2023 6:31 PM CDT us Markie Sofia MD LAB BLOOD ORDERABLES F inal Result Performing Organization Address [facility] Co de Phone Number NILSA [address] [facility] [employer] [place] [address] * CT Chest Abdomen Pelvis WO Contrast (12/19/2023 4:36 PM CDT) Anatomical Region Laterality Modality Body N/A Computed Tomogra phy 12/19/2023 4:58 PM CDT Narrative 12/19/2023 5:04 PM CDT EXAM DESCRIPTION: CT CHEST ABDOMEN PELVIS WO CONTRAST REASON FOR STUDY: Sepsis ?? evaluation of unresponsiveness. ??She has a known history of end-stage renal disease on dialysis and was having dialysis today during the session it is reported she had an episode of unresponsiveness for 60 90 seconds. ??She also has a known history ?? diabetes, neuropathy, hypertension, schizoaffective disorder bipolar type, parkinsonism and movement disorder. ??She follows with Nephrology Dr. Ryan. ? She was seen in our facility on the diagnosed with urinary tract infection and started on antibiotics. ??She was sent on that day after an episode of diaphoresis during dialysis. ?? TECHNIQUE: CT scan of the chest, abdomen, and pelvis performed without intravenous and ??without ??oral contrast using helical scanning technique. Reconstructed coronal and sagittal MPR images reviewed. All images stored on PACS. ??Automated exposure control was used as a dose optimization technique for this examination. COMPARISON: 12/03/2023 FINDINGS: LUNGS: ??Clear. Trachea and major airways are patent. HEART/MEDIASTINUM/ERICA: ??Heart size normal. ??Coronary artery calcifications. ?? No enlarged lymph node. ??Thoracic inlet unremarkable. CHEST MSK: ??Lower cervical disc disease. ??Thoracic discs are well preserved. ?? Qqmq-sx-anifcxwq shoulder arthritis. ?? CHEST WALL: ??Unremarkable. ?? LIVER/BILIARY: ??Liver unremarkable. ?? Biliary tree normal in caliber. GALLBLADDER: ??Normal. SPLEEN: ??Normal. PANCREAS: ??Normal. ADRENAL GLANDS: ??Normal. KIDNEYS/URINARY TRACT: ??Unremarkable. ?? GI: ??Stomach and small bowel appear normal. ??Moderate stool in the ascending and transverse colon. ??Appendix not seen. ?? OTHER ABDOMINAL/PELVIS: ??Major vascular structures normal in caliber. ??No enlarged lymph node or free fluid. ??No enlarged lymph node or free fluid. MSK: ??Mild disc disease and facet arthropathy. ?? BODY WALL: ??Unremarkable. ?? IMPRESSION: No acute abnormality identified. ?? THIS IS AN ELECTRONICALLY VERIFIED FINAL REPORT 12/19/2023 5:04 PM - Electronically signed by ??Mir Brooke M.D. AR: KATHARINE D: ??12/19/2023 5:04 PM T: ??12/19/2023 5:04 PM Report ID: [id number] Reading Location: ??[id number] Procedure Note Mir Brooke MD - 12/19/2023 EXAM DESCRIPTION: CT CHEST ABDOMEN PELVIS WO CONTRAST REASON FOR STUDY: Sepsis evaluation of unresponsiveness. She has a known history of end-stagerenal disease on dialysis and was having dialysis today during the session it is reported she had an episode of unresponsiveness for 60 90 seconds. David has a known history diabetes, neuropathy, hypertension, schizoaffective disorder bipolar type, parkinsonism and movement disorder. She followswith Nephrology Dr. Ryan. She was seen in our facility on the diagnosed with urinary tract infection and started on antibiotics. She was sent onthat day after an episode of diaphoresis during dialysis. TECHNIQUE: CT scan of the chest, abdomen, and pelvis performed without intravenous and without oral contrast using helical scanning technique. Reconstructed coronal and sagittal MPR images reviewed. All images storedon PACS. Automated exposure control was used as a dose optimizationtechnique for this examination. COMPARISON: 12/03/2023 FINDINGS: LUNGS: Clear. Trachea and major airways are patent. HEART/MEDIASTINUM/ERICA: Heart size normal. Coronary arterycalcifications. No enlarged lymph node. Thoracic inlet unremarkable. CHEST MSK: Lower cervical disc disease. Thoracic discs are wellpreserved. Dxmi-zg-lqpkcvzy shoulder arthritis. CHEST WALL: Unremarkable. LIVER/BILIARY: Liver unremarkable. Biliary tree normal in caliber. GALLBLADDER: Normal. SPLEEN: Normal. PANCREAS: Normal. ADRENAL GLANDS: Normal. KIDNEYS/URINARY TRACT: Unremarkable. GI: Stomach and small bowel appear normal. Moderate stool in theascending and transverse colon. Appendix not seen. OTHER ABDOMINAL/PELVIS: Major vascular structures normal in caliber. No enlarged lymph node or free fluid. No enlarged lymph node or free fluid. MSK: Mild disc disease and facet arthropathy. BODY WALL: Unremarkable. IMPRESSION: No acute abnormality identified. THIS IS AN ELECTRONICALLY VERIFIED FINAL REPORT 12/19/2023 5:04 PM - Electronically signed by Mir Brooke M.D. AR: KATHARINE Aguilar: 12/19/2023 5:04 PM Report ID: [id number] Reading Location: [id number] Markie Sofia MD IMG CT PROCEDURES [facility] [facility] Result * Sepsis Lactate w/ Reflex (12/19/2023 4:14 PM CDT) Sepsis Lactate 1.9 0.7 - 2.0 mmol/L Comment:Testing performed by : [facility], [address] [place] [address]., [address] Blood 12/19/2023 4:14 PM CDT 12/19/2023 4:19 PM CDT Markie Sofia MD LAB BLOOD ORDERABLES F inal Result NILSA [address] [facility] Department [place] [address] * Blood culture Blood Peripheral (12/19/2023 4:14 PM CDT) Report Final Report: No growth Comment:Testing performed by : [facility], [address] [place]., [address] Blood (Peripheral) 12/19/2023 4:14 PM CDT 12/19/2023 9:51 PM CDT Narrative NILSA - 12/24/2023 7:00 AM CDT From a different site [...] organism identification may be performed using the EZBOBigene Gram-Positive Blood Culture Assay. This assay detects microbial DNA in positive blood culture broth via hybridization of target DNA to capture oligonucleotides on a microarray. This assay has been cleared by the [place] Food and Drug Administration and its performance characteristics have been verified by the [facility]. 5. ?For questions about this culture, contact the Microbiology Laboratory at [phone]. Interpretive data was last revised on 2019. Markie Sofia MD LAB MICROBIOLOGY - GEN ERAL ORDERABLES Final Result NILSA [address] [facility] Department [place] [address] * Blood culture Blood Peripheral (12/19/2023 4:14 PM CDT) Report Final Report: No growth Comment:Testing performed by : [facility], [address] [place]., [address] Blood (Peripheral) 12/19/2023 4:14 PM CDT 12/19/2023 9:51 PM CDT Steve ASH - 12/24/2023 7:00 AM CDT Draw Blood cultures before [...] performance characteristics have been verified by the [facility]. 5. ?For questions about this culture, contact the Microbiology Laboratory at [phone]. Interpretive data was last revised on 2019. Markie Sofia MD LAB MICROBIOLOGY - GEN ERAL ORDERABLES Final Result NILSA [address] [facility] Department [place] [address] * (ABNORMAL) Urinalysis, microscopic only (12/19/2023 3:17 PM CDT) WBC, ur 0-5 0 - 5 /HPF Comment:Testing performed by : [address] [address] RBC, ur 0-2 0 - 2 /HPF NILSA Comment:Testing performed by : [address] [address] Epithelial cells, squamous, ur 1-5 0 - 5 /HPF NILSA Comment:Testing performed by : [address] [address] Mucous, ur Present(A) NILSA Comment:Testing performed by : [address] [address] Culture Reflex Comment Reflex conditions for urine culture (WBC >10) not met. NILSA Comment:Testing performed by : [address] [address] Urine 12/19/2023 3:17 PM CDT 12/19/2023 3:18 PM CDT us Markie Sofia MD LAB URINE ORDERABLES F inal Result NILSA [address] [facility] Department [place] [address] * (ABNORMAL) Urinalysis reflex to microscopic and culture Urine (12/19/2023 3:17 PM CDT) Color, ur Straw Yellow Comment:Testing performed by : [address] [address] Clarity, ur Clear Clear NILSA Comment:Testing performed by : [address] [address] Specific gravity, ur 1.011 1.003 - 1.030 NILSA Comment:Testing performed by : [address] [address] pH, urine 7.0 NILSA Comment: Interpretive Data ? Urine pH is affected by diet, medications, systemic acid-base disturbances, and renal tubular function. ??pH may affect urinary stone formation. ??For example, urine pH below 6.0 may help reduce the tendency for calcium phosphate stones and pH greater than 6.0 may reduce the tendency for uric acid stone formation. Source: [facility] [employer] Current Interpretive Data was last revised on 2017 Testing performed by: [address] [address] Protein, ur ql 3+(A) Negative NILSA Comment:Testing performed by : [address] [address] Glucose, ur ql 3+(A) Negative NILSA Comment:Testing performed by : [address] [address] Ketones, ur Negative Negative INLSA Comment:Testing performed by : [address] [address] Bilirubin, ur Negative Negative NILSA Comment:Testing performed by : [address] [address] Blood, ur 1+(A) Negative NILSA Comment:Testing performed by : [address] [address] [address] Urobilinogen, ur <2.0 <2.0 mg/dL NILSA Comment:Testing performed by : [address] [address] Nitrite, ur Negative Negative NILSA Comment:Testing performed by : [address], [place]., [address] Leukocyte esterase, ur Negative Negative NILSA Comment:Testing performed by : [address] [address] UA reflex comment Reflex to microscopic UA will be performed. NILSA Comment:Testing performed by : [address], [place]., [address] Urine 12/19/2023 3:17 PM CDT 12/19/2023 3:18 PM CDT Markie Sofia MD LAB MICROBIOLOGY - GEN ERAL ORDERABLES Final Result NILSA [address] [facility] Department [place] [address] * Influenza A/B, RSV, and COVID-19 PCR Nasopharyngeal (12/19/2023 3:17 PM CDT) COVID-19 RNA Negative Negative Comment:Testing performed by : [address] [address] Influenza A RNA Negative Negative NILSA Comment:Testing performed by : [address] [address] Influenza B RNA Negative Negative NILSA Comment:Testing performed by : [address] [address] RSV RNA Negative Negative NILSA Comment: Interpretive data: Testing performed by [facility]. This test is performed using the [employer] Xpert Xpress CoV-2/Flu/RSV plus assay. This is a multiplex, real-time reverse transcriptase PCR assay intended for the qualitative detection of nucleic acid from SARS-CoV-2, influenza A, influenza B, and respiratory syncytial virus. This assay has been cleared by the [place] Food and Drug administration. The performance characteristics have been verified by the [facility]. ??Results must be considered in the clinical context, and a negative result does not rule out infection. Interpretive Data last revised 2023 Testing performed by: [facility], [address] [place] [address], [place]., [address] Nasopharyngeal 12/19/2023 3: 17 PM CDT 12/19/2023 3:18 PM CDT Narrative NILSA - 12/19/2023 3:57 PM CDT Is the Patient experiencing symptoms consistent with COVID?->Yes us Markie Sofia MD LAB MICROBIOLOGY - GEN ERAL ORDERABLES Final Result NILSA 17[address] [facility] Department [place] [address] * XR Chest 1 Vw Portable (12/19/2023 3:12 PM CDT) Anatomical Region Laterality Modality Body, Chest N/A Computed Radiogr aphy 12/19/2023 3:27 PM CDT Narrative 12/19/2023 3:28 PM CDT EXAM DESCRIPTION: XR CHEST 1 VIEW REASON FOR STUDY: Episode of unresponsiveness edematous at dialysis today. TECHNIQUE: Frontal ??radiographic view(s) of the chest. COMPARISON: Chest radiograph 12/03/2023; CT chest without contrast 12/03/2023. FINDINGS: LUNGS: ??No focal consolidation. ??No pleural effusion. ??No pneumothorax. ?? HEART/MEDIASTINUM: ??Stable cardiomediastinal silhouette better evaluated on recent CT imaging. LINES/TUBES: ??Stable positioning of right chest dialysis catheter. BONES: ??No acute osseous abnormality. IMPRESSION: No acute cardiopulmonary process. THIS IS AN ELECTRONICALLY VERIFIED FINAL REPORT 12/19/2023 3:28 PM - Electronically signed by ??Redd Hendrickson M.D. CHANDA: CHANDA D: ??12/19/2023 3:28 PM T: ??12/19/2023 3:28 PM Report ID: [id number] Reading Location: ??[id number] Procedure Note Redd Hendrickson MD - 12/19/2023 EXAM DESCRIPTION: XR CHEST 1 VIEW REASON FOR STUDY: Episode of unresponsiveness edematous at dialysis today. TECHNIQUE: Frontal radiographic view(s) of the chest. COMPARISON: Chest radiograph 12/03/2023; CT chest without lwakmsnf03/13/2024. FINDINGS: LUNGS: No focal consolidation. No pleural effusion. No pneumothorax. HEART/MEDIASTINUM: Stable cardiomediastinal silhouette better evaluatedon recent CT imaging. LINES/TUBES: Stable positioning of right chest dialysis catheter. BONES: No acute osseous abnormality. IMPRESSION: No acute cardiopulmonary process. THIS IS AN ELECTRONICALLY VERIFIED FINAL REPORT 12/19/2023 3:28 PM - Electronically signed by Redd Hendrickson M.D. CHANDA: CHANDA Report ID: [id number] Reading Location: [id number] us Markie Sofia MD IMG XR PROCEDURES [facility] Result * CT Head WO Contrast (12/19/2023 3:10 PM CDT) Anatomical Region Laterality Modality Head and Neck N/A Computed Tomogra phy 12/19/2023 3:24 PM CDT Narrative 12/19/2023 3:27 PM CDT EXAM DESCRIPTION: CT HEAD WO CONTRAST REASON FOR STUDY: Episode, lasting 1-1.5 minutes, of unresponsive while at dialysis today hen resolved with pt return to baseline mental status of Ax1 with hyperglycemia (EMS blood glucose 254). ??No provided history of trauma or inciting and/or aggravating events, though history of seizures. ??No provided surgical history. ?? TECHNIQUE: Axial images acquired through the brain without intravenous contrast. ??Images stored on PACS. ?? Automated exposure control was used as a dose optimization technique for this examination. COMPARISON: CT head without contrast 12/03/2023 and 11/17/2023; MRI brain without contrast 10/30/2023. FINDINGS: BRAIN: No acute intra-axial hemorrhage. ??No edema, mass effect, midline shift, or herniation. ??No evidence of acute territorial ischemia or infarct. ?There is ??periventricular-subcortical ??hypoattenuating white matter disease, nonspecific, though likely secondary to chronic microvascular ischemia. EXTRA-AXIAL SPACES: ??No extra-axial fluid collections. No unenhanced CT evidence of extra-axial mass. There is ??mild ?? cerebral ??volume loss. ??There is intracranial calcific atherosclerotic disease. CALVARIUM: ??No acute calvarial fracture. SINUSES/MASTOIDS: ??No significant mucosal thickening and no fluid levels of the paranasal sinuses. ??Fluid about the kehpx-qzlqpua-ccuu-left dependent mastoid air cells. ORBITS: ??No acute abnormality. ??[place] ocular lenses replaced bilaterally. OTHER: ??No other significant abnormality. IMPRESSION: No acute intracranial process with chronic findings as above. ?? THIS IS AN ELECTRONICALLY VERIFIED FINAL REPORT 12/19/2023 3:27 PM - Electronically signed by ??Redd Hendrickson M.D. CHANDA: CHANDA D: ??12/19/2023 3:27 PM T: ??12/19/2023 3:27 PM Report ID: [id number] Reading Location: ??[id number] Procedure Note Redd Hendrickson MD - 12/19/2023 EXAM DESCRIPTION: CT HEAD WO CONTRAST REASON FOR STUDY: Episode, lasting 1-1.5 minutes, of unresponsive while at dialysis today hen resolved with pt return to baseline mental status ofAx1 with hyperglycemia (EMS blood glucose 254). No provided history of traumaor inciting and/or aggravating events, though history of seizures. Noprovided surgical history. TECHNIQUE: Axial images acquired through the brain without intravenous contrast. Images stored on PACS. Automated exposure control was used asa dose optimization technique for this examination. COMPARISON: CT head without contrast 12/03/2023 and 11/17/2023; MRI brain without contrast 10/30/2023. FINDINGS: BRAIN: No acute intra-axial hemorrhage. No edema, mass effect, midlineshift, or herniation. No evidence of acute territorial ischemia or infarct.There is periventricular-subcortical hypoattenuating white matter disease, nonspecific, though likely secondary to chronic microvascular ischemia. EXTRA-AXIAL SPACES: No extra-axial fluid collections. No unenhanced CT evidence of extra-axial mass. There is mild cerebral volume loss.There is intracranial calcific atherosclerotic disease. CALVARIUM: No acute calvarial fracture. SINUSES/MASTOIDS: No significant mucosal thickening and no fluid levelsof the paranasal sinuses. Fluid about the xnylb-nviemal-ciqk-left dependent mastoid air cells. ORBITS: No acute abnormality. [place] ocular lenses replaced bilaterally. OTHER: No other significant abnormality. IMPRESSION: No acute intracranial process with chronic findings as above. THIS IS AN ELECTRONICALLY VERIFIED FINAL REPORT 12/19/2023 3:27 PM - Electronically signed by Redd Hendrickson M.D. CHANDA: CHANDA Report ID: [id number] Reading Location: [place] [address] Markie Sofia MD IMG CT PROCEDURES [facility] Result * ECG 12 lead (12/19/2023 2:29 PM CDT) [facility] Ventricular Rate EKG/Min 81 BPM [facility] Atrial Rate 81 BPM [facility] MT-Interval (MSEC) 148 ms [facility] QRS-Interval (MSEC) 66 ms [facility] QT-Interval (MSEC) 390 ms [facility] QTc 453 ms [facility] P [place] 70 degrees [facility] R [place] 17 degrees [facility] T [place] 37 degrees [facility] Diagnosis Normal sinus rhythm Normal ECG When compared with ECG of 03-DEC-2023 17:03, No significant change was found Confirmed by SOFIA JOSE M.D. ([id number]) on 12/20/2023 7:11:40 PM [facility] 12/19/2023 2:29 PM CDT 12/20/2023 7:11 PM CDT Markie Sofia MD ECG ORDERABLES Final Result [facility] * (ABNORMAL) eGFR (12/19/2023 2:29 PM CDT) eGFR 13(L) >=60 mL/min/1. 73 m2 Comment: Interpretive Data [...] was last reviewed 2021. Testing performed by: [facility], [address] [place] [address]., [id number] Blood 12/19/2023 2:29 PM CDT 12/19/2023 2:35 PM CDT us Markie Sofia MD LAB BLOOD ORDERABLES F inal Result NILSA AM [address] [facility] Department [place] [address] * (ABNORMAL) Differential, auto (12/19/2023 2:29 PM CDT) Neutrophil abs 16.2(H) 1.5 - 6.5 K/cumm Comment:Testing performed by : [facility], [address] [place] [address], [place]., [address] Imm gran abs 0.4(H) 0.0 - 0.1 K/cumm [facility] Comment:Testing performed by : [facility], [address] [place] [address], [place]., [address] Lymphocyte abs 0.9 0.8 - 3.3 K/cumm [facility] Comment:Testing performed by : [address], [place]., [address] Monocyte abs 0.7 0.2 - 0.8 K/cumm [facility] Comment:Testing performed by : [address], [place]., [address] Eosinophil abs 0.0 0.0 - 0.5 K/cumm [facility] Comment:Testing performed by : [address], [place]., [address] Basophil abs 0.0 0.0 - 0.1 K/cumm [facility] Comment:Testing performed by : [address] [address] Neutrophil pct 89.0 % [facility] Comment: Interpretive Data Percent cell count reference ranges are not reported, since discordance with absolute values may lead to misinterpretation of CBC data. Current Interpretive Data was last revised on 2017. Testing performed by: [address] [address] Imm gran pct 2.0 % [facility] Comment: Interpretive Data Percent cell count reference ranges are not reported, since discordance with absolute values may lead to misinterpretation of CBC data. Current Interpretive Data was last revised on 2017. Testing performed by: [address] [address] Lymphocyte pct 4.9 % [facility] Comment: Interpretive Data Percent cell count reference ranges are not reported, since discordance with absolute values may lead to misinterpretation of CBC data. Current Interpretive Data was last revised on 2017. Testing performed by: [address] [address] Monocyte pct 3.9 % [facility] Comment: Interpretive Data Percent cell count reference ranges are not reported, since discordance with absolute values may lead to misinterpretation of CBC data. Current Interpretive Data was last revised on 2017. Testing performed by: [address] [address] Eosinophil pct 0.0 % [facility] Comment: Interpretive Data Percent cell count reference ranges are not reported, since discordance with absolute values may lead to misinterpretation of CBC data. Current Interpretive Data was last revised on 2017. Testing performed by: [address] [address] Basophil pct 0.2 % [facility] Comment: Interpretive Data Percent cell count reference ranges are not reported, since discordance with absolute values may lead to misinterpretation of CBC data. Current Interpretive Data was last revised on 2017. Testing performed by: [address] [address] Blood 12/19/2023 2:29 PM CDT 12/19/2023 2:35 PM CDT us Markie Sofia MD LAB BLOOD ORDERABLES F inal Result NILSA 49[address] [facility] Department [place] [address] * (ABNORMAL) Troponin T high-sensitivity series (baseline, 2hr, 4hr, 6hr) (12/19/2023 2:29 PM CDT) Trop T hs 34(H) <=14 ng/L Comment: Interpretive Data For further hscTnT resources including the diagnostic algorithm and an aid in interpretation, copy and paste this link: [email or web address] Current Interpretive Data last revised 2020. Testing performed by: [address] [address] Blood 12/19/2023 2:29 PM CDT 12/19/2023 2:35 PM CDT us Markie Sofia MD LAB BLOOD ORDERABLES F inal Result [facility] Department [place] [address] * (ABNORMAL) Comprehensive metabolic panel (12/19/2023 2:29 PM CDT) Sodium 141 135 - 145 mmol/L Comment:Testing performed by : [address] [address] Potassium, pl 4.2 3.3 - 4.9 mmol/L NILSA Comment:Testing performed by : [address] [address] Chloride 103 97 - 110 mmol/L NILSA Comment:Testing performed by : [address] [address] CO2 22 22 - 32 mmol/L NILSA Comment:Testing performed by : [address] [address] Anion gap 16(H) 2 - 15 mmol/L NILSA Comment:Testing performed by : [address] [address] BUN 45(H) 6 - 25 mg/dL NILSA Comment:Testing performed by : [address] [address] Creatinine 3.50(H) 0.60 - 1.10 mg/dL NILSA Comment:Testing performed by : [address] [address] Glucose 186 70 - 199 mg/dL NILSA Comment: Interpretive [...] was last revised 2022. Testing performed by: [address] [address] Calcium 9.6 8.5 - 10.3 mg/dL NILSA Comment:Testing performed by : [address] [address] Bilirubin, total 0.2 0.1 - 1.2 mg/dL NILSA Comment:Testing performed by : [address] [address] Protein, pl 7.3 6.5 - 8.5 g/dL NILSA Comment:Testing performed by : [address] [address] Albumin 3.8 3.5 - 5.0 g/dL NILSA Comment:Testing performed by : [address] [address] Alk phos 127 40 - 130 Units/L NILSA Comment:Testing performed by : [address] [address] ALT 8 7 - 45 Units/L NILSA Comment:Testing performed by : [address] [address] AST 12 10 - 45 Units/L NILSA Comment:Testing performed by : [address] [address] Blood 12/19/2023 2:29 PM CDT 12/19/2023 2:35 PM CDT Markie Sofia MD LAB BLOOD ORDERABLES F inal Result [facility] [facility] Department of Laboratories [place], [place] [id number] * (ABNORMAL) CBC with auto differential (12/19/2023 2:29 PM CDT) [facility] WBC 18.2(H) 3.8 - 9.9 K/cumm Comment:Testing performed by : [address] [address] Hgb 10.0(L) 11.9 - 15.5 g/dL NILSA Comment:Testing performed by : [address] [address] Hct 30.1(L) 35.6 - 45.5 % NILSA Comment:Testing performed by : [address] [address] Plt 245 150 - 400 K/cumm NILSA Comment:Testing performed by : [address] [address] MPV 10.7 9.1 - 12.3 fL NILSA Comment:Testing performed by : [address] [address] RBC 3.20(L) 3.90 - 5.20 M/cumm NILSA Comment:Testing performed by : [address] [address] MCV 94.1 81.3 - 96.4 fL NILSA Comment:Testing performed by : [address] [address] MCH 31.3 27.1 - 33.3 pg NILSA Comment:Testing performed by : [address] [address] MCHC 33.2 32.3 - 35.7 g/dL NILSA Comment:Testing performed by : [address], [address] RDW CV 14.2 11.1 - 14.9 % NILSA Comment:Testing performed by : [address] [address] RDW SD 48.6(H) 35.7 - 48.1 fL NILSA Comment:Testing performed by : [address] [address] NRBC abs 0.00 0.00 - 0.01 K/cumm NILSA Comment:Testing performed by : [address], [address] Blood 12/19/2023 2:29 PM CDT 12/19/2023 2:35 PM CDT us Markie Sofia MD LAB BLOOD ORDERABLES F inal Result [facility] [facility] [place] [address] documented in this encounter Visit Diagnoses Diagnosis Syncope, unspecified syncope type ESRD (end stage renal disease) on dialysis ([facility]) End stage renal disease Leukocytosis, unspecified type Anemia of renal disease Anemia in chronic kidney disease ESRD on dialysis ([facility]) End stage renal disease CKD (chronic kidney disease) stage 4, GFR 15-29 ml/min ([facility]) ([facility]) Chronic kidney disease, Stage IV (severe) Transient alteration of awareness ESRD on hemodialysis ([facility]) ([facility]) [N18.6, Z99.2] Syncope, unspecified syncope type Leukocytosis Leukocytosis, unspecified Gastroesophageal reflux disease without esophagitis Esophageal reflux ESRD on hemodialysis ([facility]) ([facility]) Anemia in chronic kidney disease, on chronic dialysis ([facility]) Primary hypertension Unspecified essential hypertension Parkinsonism ([facility]) Paralysis agitans Schizoaffective disorder, bipolar type ([facility]) ([facility]) Schizoaffective disorder, unspecified condition Type 2 diabetes mellitus with diabetic neuropathy, with long-term current use of insulin ([facility]) ESRD on dialysis ([facility]) End stage renal disease Anemia of renal disease Anemia in chronic kidney disease Anemia, unspecified type Gastritis without bleeding, unspecified chronicity, unspecified gastritis type documented in this encounter Admitting Diagnoses Diagnosis Syncope, unspecified syncope type documented in this encounter Administered Medications Inactive Administered Medications - up to 3 most recent administrations Medication Order MAR Action Action Date Dose Rate Site acetaminophen (TYLENOL) tablet 975 mg 975 mg (rounded from 1,000 mg), oral, Every 8 hours, First dose on 12/19/23 at 2100 Given 12/25/2023 12:48 PM CDT 975 mg Given 12/25/2023 5:54 AM CDT 975 mg Given 12/24/2023 9:47 PM CDT 975 mg acetaminophen (TYLENOL) tablet 975 mg 975 mg (rounded from 1,000 mg), oral, Every 6 hours PRN, fever, Starting on 12/25/23 at 1530 albumin 25 % bottle 25 g 25 g, intravenous, As needed, hypotension, Starting on Thu12/24/23 at 0617, For 24 hours, Dialysis, To be administered only in dialysis. Not to exceed 25 gm. (Second priority), BP threshold for treatment: SBP, Systolic Blood Pressure less than (mmHg): 89, Indications: Intradialytic HypotensionIndications:Intradialytic Hypotension New Bag 12/24/2023 8:23 AM CDT 25 g aspirin enteric coated tablet 81 mg 81 mg, oral, Daily, First dose on 12/20/23 at 0900, Do not crush, chew, cut, dissolve, open or otherwise manipulate tablet/capsule., Indications: cerebral ischemiaIndications:cerebral ischemia Given 12/26/2023 10:00 AM CDT 81 mg Given 12/25/2023 9:34 AM CDT 81 mg Given 12/24/2023 11:58 AM CDT 81 mg atorvastatin (LIPITOR) tablet 40 mg 40 mg, oral, Nightly, First dose on 12/19/23 at 2100 Given 12/25/2023 8:33 PM CDT 40 mg Given 12/24/2023 9:47 PM CDT 40 mg Given 12/23/2023 8:38 PM CDT 40 mg benztropine (COGENTIN) tablet 1 mg 1 mg, oral, Nightly, First dose on 12/19/23 at 2100 Given 12/25/2023 8:38 PM CDT 1 mg Given 12/24/2023 9:46 PM CDT 1 mg Given 12/23/2023 8:38 PM CDT 1 mg benztropine (COGENTIN) tablet 2 mg 2 mg, oral, Daily, First dose (after last reorder) on 12/20/23 at 0900 Given 12/26/2023 10:00 AM CDT 2 mg Given 12/25/2023 9:34 AM CDT 2 mg Given 12/24/2023 11:57 AM CDT 2 mg calcium acetate(phosphat bind) (PHOSLO) capsule 667 mg 667 mg, oral, 3 times daily with meals, First dose on 12/19/23 at 1915, Take with food Given 12/26/2023 6:28 PM C DT 667 mg Given 12/26/2023 1:50 PM CDT 667 mg Given 12/26/2023 10:00 AM CDT 667 mg Carrier Fluids for Secondary Infusion - 0.9% Sodium Chloride 30 mL, intravenous, As needed, For priming tubing and/or flushing, Starting on Thu12/19/23 at 1838, 0-250 ml/hr to flush line after IV infusions when no maintenance IV ordered. Infuse 30mL at the same rate as the secondary infusion. Run as primary IV, not intended for KVO. Given 12/25/2023 3:17 PM CDT 30 mL carvediloL (COREG) tablet 3.125 mg 3.125 mg, oral, 2 times daily with meals (bkfst, dinner), First dose on Thu12/19/23 at 1915 Given 12/26/2023 6:28 PM CDT 3.125 mg Given 12/25/2023 9:34 AM CDT 3.125 mg Given 12/24/2023 5:15 PM CDT 3.125 mg cefTRIAXone (ROCEPHIN) 1,000 mg/10 mL in sterile water (premix) 1,000 mg 1,000 mg, intravenous, at 120 mL/hr, Administer over 5 Minutes, Once, On Thu12/19/23 at 1545, For 1 dose, Indications: Urinary Tract/Genitourinary InfectionIndications:Urinary Tract/Genitourinary Infection Given 12/19/2023 4:23 PM CDT 1,000 mg 1 20 mL/hr cyclobenzaprine (FLEXERIL) tablet 5 mg 5 mg, oral, 3 times daily PRN, muscle spasms, Starting on Thu12/25/23 at 1612 Given 12/25/2023 4:49 PM CDT 5 mg darbepoetin isaiah (ARANESP) 40 mcg/mL injection 40 mcg 40 mcg, intravenous, at 60 mL/hr, Administer over 1 Minutes, Weekly (for epoetins), First dose on Thu12/20/23 at 2100, Refrigerate, Indications: ESRD on DialysisIndications:ESRD on Dialysis Given 12/20/2023 9:30 PM CDT 40 mcg 60 mL/hr dextrose (D10W) 10% bolus 250 mL 250 mL, intravenous, at 1,000 mL/hr, Administer over 15 Minutes, Every 15 min PRN, blood glucose less than 70 mg/dL and UNABLE to swallow/take PO glucose/juice., Starting on Thu12/19/23 at 1749, After treatment for hypoglycemia, recheck BG followed [...] glucose less than 70 mg/dL, Starting on 12/19/23 at 1749, If patient is alert and able to [...] Call MD for each episode of hypoglycemia. EPIC BEACON ANALYST STATES GLUTOSE-15 CONTAINS GLUCOSE 40% W/W (50% W/V), Indications: hypoglycemic disorderIndications:hypoglycemic disorder docusate sodium (COLACE) capsule 100 mg 100 mg, oral, 2 times daily PRN, constipation, Starting on 12/19/23 at 1930, Indications: constipationIndications:constipati on Given 12/22/2023 11:31 AM CDT 100 mg famotidine (PEPCID) tablet 10 mg 10 mg, oral, Daily, First dose on 12/20/23 at 0900 Given 12/26/2023 10:00 AM CDT 10 mg Given 12/25/2023 9:34 AM CDT 10 mg Given 12/24/2023 11:59 AM CDT 10 mg ferrous sulfate tablet 325 mg 325 mg (65 mg of elemental iron), oral, 2 times daily with meals (bkfst, dinner), First dose on 12/19/23 at 1915 Given 12/26/2023 6:28 PM CDT 325 mg Given 12/26/2023 10:00 AM CDT 325 mg Given 12/25/2023 4:49 PM CDT 325 mg fluticasone propionate (FLONASE) 50 mcg/actuation nasal spray 2 spray 2 spray, each nostril, Daily, First dose on 12/19/23 at 2100 Given 12/26/2023 10:00 AM CDT 2 sprays Given 12/25/2023 9:41 AM CDT 2 sprays Given 12/24/2023 12:02 PM CDT 2 sprays glucagon injection 1 mg 1 mg, intramuscular, Every 30 min PRN, low blood sugar, blood glucose less than 70 mg/dL AND no IV access AND unable to take PO glucose/juice., Starting on 12/19/23 at 1749, After Glucagon is administered, position patient on [...] 1 mL SWFI. Use immediately following reconstitution. heparin 1,000 unit/mL injection 1.5-6.9 mL 1.5-6.9 mL, intra-catheter, Once, On 12/22/23 at 1130, For 1 dose, Dialysis, [place] volume of catheter lumens post treatment. Give volume based upon salesperson women's hats's recommendation (usual range 1.2 - 3 mL) in each lumen., Indications: prevent clotting in catheterIndications:prevent clotting in catheter Given 12/22/2023 11:02 AM CDT 4 mL heparin 1,000 unit/mL injection 1.5-6.9 mL 1.5-6.9 mL, intra-catheter, Once, On 12/26/23 at 1200, For 1 dose, Dialysis, [place] volume of catheter lumens post treatment. Give volume based upon salesperson women's hats's recommendation (usual range 1.2 - 3 mL) in each lumen., Indications: prevent clotting in catheterIndications:prevent clotting in catheter Given 12/26/2023 11:44 AM CDT 4 mL heparin 5,000 unit/mL injection 5,000 Units 5,000 Units, subcutaneous, Every 8 hours scheduled, First dose on 12/19/23 at 2200, Indications: Deep Vein Thrombosis PreventionIndications:Deep Vein Thrombosis Prevention Given 12/26/2023 7:27 AM CDT 5,000 Units Left Lower Abdomen Given 12/25/2023 11:32 PM CDT 5,000 Units Left Lower Abdomen Given 12/25/2023 5:01 PM CDT 5,000 Units L eft Lower Abdomen hydrALAZINE (APRESOLINE) injection 10 mg 10 mg, intravenous, Administer over 2 Minutes, Once, On 12/19/23 at 1427, For 1 dose Given 12/19/2023 3:02 PM CDT 10 mg hydrALAZINE (APRESOLINE) injection 10 mg 10 mg, intravenous, Administer over 2 Minutes, Every 4 hours PRN, high blood pressure, systolic BP > 180 and or diastolic BP > 100, Starting on 12/19/23 at 1838 Given 12/20/2023 4:28 AM CDT 10 mg Given 12/20/2023 12:28 AM CDT 10 mg hydrALAZINE (APRESOLINE) injection 10 mg 10 mg, intravenous, Administer over 2 Minutes, Every 4 hours PRN, high blood pressure, systolic BP > 180 and or diastolic BP > 100, Starting on Thu12/23/23 at 1550 hydrALAZINE (APRESOLINE) injection 20 mg 20 mg, intravenous, Administer over 2 Minutes, Every 4 hours PRN, high blood pressure, systolic BP > 180 and or diastolic BP > 100, Starting on 12/20/23 at 1616 Given 12/20/2023 4:23 PM CDT 20 mg hydrALAZINE (APRESOLINE) tablet 25 mg 25 mg, oral, 3 times daily, First dose on Thu12/20/23 at 1100, Indications: hypertensionIndications:hypertension Given 12/25/2023 8:34 PM CDT 25 mg Given 12/25/2023 9:34 AM CDT 25 mg Given 12/24/2023 9:51 PM CDT 25 mg HYDROcodone-acetaminophen (NORCO) 5-325 mg per tablet 1 tablet 1 tablet, oral, Every 4 hours PRN, 1st line for pain, Starting on 12/20/23 at 1440, Indications: PainIndications:Pain Given 12/26/2023 7:04 PM CDT 1 tablet Given 12/26/2023 10:49 AM CDT 1 tablet Given 12/25/2023 9:34 AM CDT 1 tablet insulin glargine (LANTUS, SEMGLEE) 100 unit/mL injection 15 Units 15 Units, subcutaneous, Nightly, First dose on 12/19/23 at 2100, Do not mix with other insulins Given 12/25/2023 8:33 PM CDT 15 Units Left Upper Arm Given 12/24/2023 9:51 PM CDT 15 Units Ri ght Upper Arm Given 12/23/2023 8:51 PM CDT 15 Units Le ft Upper Arm insulin lispro (HumaLOG, ADMELOG) 100 unit/mL injection 4 Units 4 Units, subcutaneous, 3 times daily before meals, First dose on 12/20/23 at 0730, Administer pre-meal doses when pts food tray arrives in room. Do not administer pre-meal doses to NPO patients. Given 12/26/2023 6:27 PM CDT 4 Units Right Upper Arm Given 12/26/2023 1:30 PM CDT 4 Units Ri ght Lower Abdomen Given 12/25/2023 4:50 PM CDT 4 Units Le ft Lower Abdomen lidocaine (LIDODERM) 5 % patch 3 patch 3 patch, transdermal, Administer over 12 Hours, Every 24 hours, First dose on 12/19/23 at 2100, Do not cover the holes on the top side of the patch., Apply to affected area: shoulder, Laterality: Left Medication Applied 12/25/2023 8:32 PM CDT 3 patches Left Shoulder Medication Applied 12/24/2023 9:47 PM CDT 3 patches Left Shoulder Medication Applied 12/23/2023 8:43 PM CDT 3 patches Left Shoulder NIFEdipine (PROCARDIA XL/ADALAT CC) extended release tablet 30 mg 30 mg, oral, Once, On Thu12/23/23 at 1630, For 1 dose, Do not crush, chew, cut, dissolve, open or otherwise manipulate tablet/capsule. Given 12/23/2023 4:59 PM CDT 30 mg NIFEdipine (PROCARDIA XL/ADALAT CC) extended release tablet 60 mg 60 mg, oral, Daily, First dose on 12/20/23 at 1700, Do not crush, chew, cut, dissolve, open or otherwise manipulate tablet/capsule. Given 12/25/2023 9:34 AM CDT 60 mg Given 12/24/2023 11:59 AM CDT 60 mg Given 12/23/2023 9:40 AM CDT 60 mg ondansetron (ZOFRAN) injection 4 mg 4 mg, intravenous, Administer over 2 Minutes, Every 6 hours PRN, nausea, vomiting, if not tolerating PO, Starting on 12/19/23 at 1838, Indications: Nausea and VomitingIndications:Nausea and Vomiting ondansetron (ZOFRAN) injection 4 mg 4 mg, intravenous, Administer over 2 Minutes, Once, On Thu12/25/23 at 1845, For 1 dose, Before dinner Given 12/25/2023 4:50 PM CDT 4 mg ondansetron ODT (ZOFRAN-ODT) disintegrating tablet 4 mg 4 mg, oral, Every 6 hours PRN, nausea, vomiting, Starting on 12/19/23 at 1838, Indications: Nausea and VomitingIndications:Nausea and Vomiting Given 12/25/2023 2:54 PM CDT 4 mg polyethylene glycol (MIRALAX) packet 17 g 17 g, oral, Daily PRN, constipation, Starting on 12/19/23 at 1900, Indications: constipationIndications:constipation ramelteon (ROZEREM) tablet 8 mg 8 mg, oral, Nightly PRN, sleep, Starting on 12/19/23 at 1838, Indications: Sleep-Onset InsomniaIndications:Sleep-Onset Insomnia Given 12/23/2023 8:39 PM CDT 8 m g Given 12/22/2023 8:22 PM CDT 8 mg Given 12/21/2023 8:46 PM CDT 8 mg risperiDONE (RisperDAL) tablet 2 mg 2 mg, oral, Nightly, First dose on 12/19/23 at 2100 Given 12/25/2023 8:34 PM CDT 2 mg Given 12/24/2023 9:46 PM CDT 2 mg Given 12/23/2023 8:51 PM CDT 2 mg sodium chloride 0.9% 0.9% infusion - ADS Override Pull Starting on Thu12/25/23 at 1511, For 1 dose, Created by cabinet override sodium chloride 0.9% bolus 250 mL 250 mL, intravenous, Once, On Thu12/21/23 at 1745, For 1 dose New Bag 12/21/2023 5:10 PM CDT 250 mL sodium chloride 0.9% bolus 250 mL 250 mL, intravenous, Once, On Thu24 at 1845, For 1 dose New Bag 12/21/2023 6:12 PM CDT 250 mL sodium chloride 0.9% flush 0.5-20 mL 0.5-20 mL, intra-catheter, Every 8 hours scheduled, First dose on 12/19/23 at 2200, Flush volume based on line type and size. 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 acetaminophen 500 mg capsule Take 2 capsules (1,000 mg total) by mouth 3 (three) times a day as needed for mild pain (pain scale 1-4) added in this encounter Active and Recently Administered Medications Times are shown in CDT. Scheduled Medication Order 12/24/2023 12/25/2023 12/26/2023 acetaminophen (TYLENOL) tablet 975 mg (CANCELED) 975 mg (rounded from 1,000 mg), oral, Every 8 hours, First dose on 12/19/23 at 2100 0645 (Given - Provider: Belkys Roland RN)1212 (Given - Provider: Clement Burgess RN)7 (Given - Provider: Belkys Roland RN) 0554 (Given - Provider: Belkys Roland RN)1248 (Given - Provider: Marie Peres, ALIREZA) aspirin enteric coated tablet 81 mg 81 mg, oral, Daily, First dose on 12/20/23 at 0900, Do not crush, chew, cut, dissolve, open or otherwise manipulate tablet/capsule., Indications: cerebral ischemia 1158 (Given - Provider: Clement Burgess RN - Comment: Pt was getting dialysis) 0934 (Given - Provider: Marie Peres RN) 1000 (Given - Provider: Ayanna Garsia RN) atorvastatin (LIPITOR) tablet 40 mg 40 mg, oral, Nightly, First dose on 12/19/23 at 2100 2146 (Given - Provider: Belkys Roland RN) 2032 (Given - Provider: Deirdre Iqbal LPN) benztropine (COGENTIN) tablet 1 mg 1 mg, oral, Nightly, First dose on 12/19/23 at 2100 6 (Given - Provider: Belkys Roland RN) 2037 (Given - Provider: Deirdre Iqbal LPN) benztropine (COGENTIN) tablet 2 mg 2 mg, oral, Daily, First dose (after last reorder) on 12/20/23 at 0900 1157 (Given - Provider: Clement Burgess RN - Comment: Pt was getting dialysis) 0934 (Given - Provider: Marie Peres RN) 1000 (Given - Provider: Ayanna Garsia, ALIREZA) calcium acetate(phosphat bind) (PHOSLO) capsule 667 mg 667 mg, oral, 3 times daily with meals, First dose on 12/19/23 at 1915, Take with food 1155 (Not Given - Provider: Clement Burgess RN - Reason: Hold for Procedure - Comment: patient did not have breakfast due do dialysis this morning)1158 (Given - Provider: Clement Burgess RN)1715 (Given - Provider: Clement Burgess RN) 0934 (Given - Provider: Marie Peres RN)1247 (Given - Provider: Marie Peres RN)1649 (Given - Provider: Marie Peres RN) 1000 (Given - Provider: Ayanna Garsia RN)1350 (Given - Provider: Ayanna Garsia RN)1828 (Given - Provider: Ayanna Garsia RN) carvediloL (COREG) tablet 3.125 mg 3.125 mg, oral, 2 times daily with meals (bkfst, dinner), First dose on 12/19/23 at 1915 1158 (Given - Provider: Clement Burgess RN - Comment: Pt was getting dialysis)1715 (Given - Provider: Clement Burgess RN) 0934 (Given - Provider: Marie Peres RN)1610 (Hold - Provider: Marie Peres RN - Reason: Change in Patient Status - Comment: hold via provider verbal order) 0800 (Not Given - Provider: Ayanna Garsia RN - Reason: Hold for Procedure - Comment: dialysis)1828 (Given - Provider: Ayanna Garsia RN) darbepoetin isaiah (ARANESP) 40 mcg/mL injection 40 mcg 40 mcg, intravenous, at 60 mL/hr, Administer over 1 Minutes, Weekly (for epoetins), First dose on 12/20/23 at 2100, Refrigerate, Indications: ESRD on Dialysis famotidine (PEPCID) tablet 10 mg 10 mg, oral, Daily, First dose on 12/20/23 at 0900 1159 (Given - Provider: Clement Burgess RN - Comment: Pt was getting dialysis.) 0934 (Given - Provider: Marie Peres RN) 1000 (Given - Provider: Ayanna Garsia RN) ferrous sulfate tablet 325 mg 325 mg (65 mg of elemental iron), oral, 2 times daily with meals (bkfst, dinner), First dose on 12/19/23 at 1915 1159 (Given - Provider: Clement Burgess RN - Comment: Pt was getting dialysis)1715 (Given - Provider: Clement Burgess RN) 0934 (Given - Provider: Marie Peres RN)1649 (Given - Provider: Marie Peres RN) 1000 (Given - Provider: Ayanna Garsia RN)1828 (Given - Provider: Ayanna Garsia, RN) fluticasone propionate (FLONASE) 50 mcg/actuation nasal spray 2 spray 2 spray, each nostril, Daily, First dose on 12/19/23 at 2100 1202 (Given - Provider: Clement Burgess RN - Comment: Pt was getting dialysis) 0941 (Given - Provider: Marie Peres RN) 1000 (Given - Provider: Ayanna Garsia RN) heparin 1,000 unit/mL injection 1.5-6.9 mL (COMPLETED)(Linked Group 1) 1.5-6.9 mL, intra-catheter, Once, On 12/26/23 at 1200, For 1 dose, Dialysis, [place] volume of catheter lumens post treatment. Give volume based upon salesperson women's hats's recommendation (usual range 1.2 - 3 mL) in each lumen., Indications: prevent clotting in catheter 1144 (Given - Provider: Adriel Fang - Comment: given at dialysis) heparin 5,000 unit/mL injection 5,000 Units 5,000 Units, subcutaneous, Every 8 hours scheduled, First dose on 12/19/23 at 2200, Indications: Deep Vein Thrombosis Prevention 0624 (Given - Provider: Belkys Roland RN)1317 (Given - Provider: Clement Burgess RN)2146 (Given - Provider: Belkys Roland RN) 0555 (Given - Provider: Belkys Roland RN)1701 (Given - Provider: Marie Peres RN)2332 (Given - Provider: Deirdre Iqbal LPN) 0727 (Given - Provider: Deirdre Iqbal LPN)1350 (Not Given - Provider: Ayanna Garsia RN - Reason: Other - Comment: heparin given with dialysis) hydrALAZINE (APRESOLINE) tablet 25 mg 25 mg, oral, 3 times daily, First dose on 12/20/23 at 1100, Indications: hypertension 1158 (Given - Provider: Clement Burgess RN - Comment: Pt was getting dialysis)1715 (Given - Provider: Clement Burgess RN)215 (Given - Provider: Belkys Roland RN) 0934 (Given - Provider: Marie Peres, ALIREZA)1609 (Hold - Provider: Marie Peres RN - Reason: Change in Patient Status - Comment: hold via provider verbal order)2033 (Given - Provider: Deirdre Iqbal LPN) 0900 (Not Given - Provider: Ayanna Garsia RN - Reason: Hold for Procedure - Comment: dialysis)1640 (Not Given - Provider: Ayanna Garsia RN - Reason: Other - Comment: hold per dr hartman) insulin glargine (LANTUS, SEMGLEE) 100 unit/mL injection 15 Units 15 Units, subcutaneous, Nightly, First dose on 12/19/23 at 2100, Do not mix with other insulins 2150 (Given - Provider: Belkys Roland RN) 2032 (Given - Provider: Deirdre Iqbal LPN) insulin lispro (HumaLOG, ADMELOG) 100 unit/mL injection 4 Units 4 Units, subcutaneous, 3 times daily before meals, First dose on 12/20/23 at 0730, Administer pre-meal doses when pts food tray arrives in room. Do not administer pre-meal doses to NPO patients. 1006 (Not Given - Provider: Clement Burgess RN - Reason: Hold for Procedure - Comment: Patient recieving dialysis, not able to eat this morning.)1210 (Given - Provider: Clement Burgess RN)1756 (Given - Provider: Clement Burgess RN) 0934 (Given - Provider: Marie Peres RN)1247 (Given - Provider: Marie Peres RN)1650 (Given - Provider: Marie Peres RN) 0855 (Not Given - Provider: Ayanna Garsia RN - Reason: Other - Comment: patient not eating, receiving dialysis)1330 (Given - Provider: Ayanna Garsia, RN)1827 (Given - Provider: Ayanna Garsia RN) lidocaine (LIDODERM) 5 % patch 3 patch 3 patch, transdermal, Administer over 12 Hours, Every 24 hours, First dose on 12/19/23 at 2100, Do not cover the holes on the top side of the patch., Apply to affected area: shoulder, Laterality: Left 1213 (Medication Removed - Provider: Clement Burgess RN)2147 (Medication Applied - Provider: Belkys Roland RN) 0941 (Medication Removed - Provider: Marie Peres, ALIREZA)2031 (Medication Applied - Provider: Deirdre Iqbal LPN) 1000 (Medication Removed - Provider: Ayanna Garsia RN) NIFEdipine (PROCARDIA XL/ADALAT CC) extended release tablet 60 mg 60 mg, oral, Daily, First dose on 12/20/23 at 1700, Do not crush, chew, cut, dissolve, open or otherwise manipulate tablet/capsule. 1159 (Given - Provider: Clement Burgess RN) 0934 (Given - Provider: Marie Peres, ALIREZA) 0900 (Not Given - Provider: Ayanna Garsia RN - Reason: Hold for Procedure - Comment: dialysis) ondansetron (ZOFRAN) injection 4 mg (COMPLETED) 4 mg, intravenous, Administer over 2 Minutes, Once, On Thu12/25/23 at 1845, For 1 dose, Before dinner 1650 (Given - Provider: Marie Peres RN) risperiDONE (RisperDAL) tablet 2 mg 2 mg, oral, Nightly, First dose on 12/19/23 at 2100 2146 (Given - Provider: Belkys Roland RN) 2033 (Given - Provider: Deirdre Iqbal LPN) sodium chloride 0.9% flush 0.5-20 mL 0.5-20 mL, intra-catheter, Every 8 hours scheduled, First dose on 12/19/23 at 2200, Flush volume based on line type and size. 0600 (Given - Provider: Belkys Roland RN)1350 (Given - Provider: Clement Burgess RN)2147 (Given - Provider: Belkys Roland RN) 0707 (Not Given - Provider: Belkys Roland RN - Reason: Loss of IV access)1702 (Given - Provider: Marie Peres RN)2047 (Given - Provider: Deirdre Iqbal LPN) 0729 (Given - Provider: Deirdre Iqbal LPN)1352 (Given - Provider: Ayanna Garsia RN) PRN Medication Order 12/24/2023 12/25/2023 12/26/2023 acetaminophen (TYLENOL) tablet 975 mg 975 mg (rounded from 1,000 mg), oral, Every 6 hours PRN, fever, Starting on Thu12/25/23 at 1530 albumin 25 % bottle 25 g () 25 g, intravenous, As needed, hypotension, Starting on Kellie 12/24/23 at 0617, For 24 hours, Dialysis, To be administered only in dialysis. Not to exceed 25 gm. (Second priority), BP threshold for treatment: SBP, Systolic Blood Pressure less than (mmHg): 89, Indications: Intradialytic Hypotension 0823 (New Bag - Provider: Rola Sanchez RN) Carrier Fluids for Secondary Infusion - 0.9% Sodium Chloride 30 mL, intravenous, As needed, For priming tubing and/or flushing, Starting on 12/19/23 at 1838, 0-250 ml/hr to flush line after IV infusions when no maintenance IV ordered. Infuse 30mL at the same rate as the secondary infusion. Run as primary IV, not intended for KVO. 1517 (Given - Provider: Marie Peres RN - Comment: dose 250 mL per provider request) cyclobenzaprine (FLEXERIL) tablet 5 mg 5 mg, oral, 3 times daily PRN, muscle spasms, Starting on Thu12/25/23 at 1612 1649 (Given - Provider: Marie Peres, ALIREZA) dextrose (D10W) 10% bolus 250 mL(Linked Group 2) 250 mL, intravenous, at 1,000 mL/hr, Administer over 15 Minutes, Every 15 min PRN, blood glucose less than 70 mg/dL and UNABLE to swallow/take PO glucose/juice., Starting on 12/19/23 at 1749, After treatment for hypoglycemia, recheck BG followed [...] glucose less than 70 mg/dL, Starting on 12/19/23 at 1749, If patient is alert and able to [...] Call MD for each episode of hypoglycemia. EPIC BEACON ANALYST STATES GLUTOSE-15 CONTAINS GLUCOSE 40% W/W (50% W/V), Indications: hypoglycemic disorder docusate sodium (COLACE) capsule 100 mg 100 mg, oral, 2 times daily PRN, constipation, Starting on 12/19/23 at 1930, Indications: constipation glucagon injection 1 mg 1 mg, intramuscular, Every 30 min PRN, low blood sugar, blood glucose less than 70 mg/dL AND no IV access AND unable to take PO glucose/juice., Starting on 12/19/23 at 1749, After Glucagon is administered, position patient on [...] 10 mg, intravenous, Administer over 2 Minutes, Every 4 hours PRN, high blood pressure, systolic BP > 180 and or diastolic BP > 100, Starting on Thu12/23/23 at 1550 HYDROcodone-acetaminophe n (NORCO) 5-325 mg per tablet 1 tablet 1 tablet, oral, Every 4 hours PRN, 1st line for pain, Starting on 12/20/23 at 1440, Indications: Pain 0934 (Given - Provider: Marie Peres, ALIREZA) 1049 (Given - Provider: Ayanna Garsia, RN)1904 (Given - Provider: Ayanna Garsia, RN) ondansetron (ZOFRAN) injection 4 mg(Linked Group 3) 4 mg, intravenous, Administer over 2 Minutes, Every 6 hours PRN, nausea, vomiting, if not tolerating PO, Starting on 12/19/23 at 1838, Indications: Nausea and Vomiting 1454 (See Alternative - Provider: Marie Peres RN) ondansetron ODT (ZOFRAN-ODT) disintegrating tablet 4 mg(Linked Group 3) 4 mg, oral, Every 6 hours PRN, nausea, vomiting, Starting on 12/19/23 at 1838, Indications: Nausea and Vomiting 1454 (Given - Provider: Marie Peres, ALIREZA) polyethylene glycol (MIRALAX) packet 17 g 17 g, oral, Daily PRN, constipation, Starting on 12/19/23 at 1900, Indications: constipation ramelteon (ROZEREM) tablet 8 mg 8 mg, oral, Nightly PRN, sleep, Starting on 12/19/23 at 1838, Indications: Sleep-Onset Insomnia sodium chloride 0.9% flush 0.5-20 mL 0.5-20 mL, intra-catheter, As needed, line care, Starting on 12/19/23 at 1838, Flush volume based on line type and size. Flush before and after each use. traMADoL (ULTRAM) tablet 50 mg 50 mg, oral, Every 8 hours PRN, 2nd line for pain, Starting on 12/19/23 at 1838 Linked Groups Order Group 1: Dialysis Access Care (CANCELED) Routine, Once (Routine), On 12/26/23 at 1130, For 1 occurrence, Catheter access to use for this treatment: Tunneled Dialysis Catheter, Dialysis And heparin 1,000 unit/mL injection 1.5-6.9 mL (COMPLETED)Jump to med 1.5-6.9 mL, intra-catheter, Once, On 12/26/23 at 1200, For 1 dose, Dialysis, [place]well volume of catheter lumens post treatment. Give volume based upon salesperson women's hats's recommendation (usual range 1.2 - 3 mL) in each lumen., Indications: prevent clotting in catheter Group 2: dextrose (GLUTOSE) 40 % gel 15 gJump to med 15 g, oral, Every 15 min PRN, low blood sugar, blood glucose less than 70 mg/dL, Starting on 12/19/23 at 1749, If patient is alert and able to [...] Call MD for each episode of hypoglycemia. EPIC BEACON ANALYST STATES GLUTOSE-15 CONTAINS GLUCOSE 40% W/W (50% W/V), Indications: hypoglycemic disorder Or dextrose (D10W) 10% bolus 250 mLJump to med 250 mL, intravenous, at 1,000 mL/hr, Administer over 15 Minutes, Every 15 min PRN, blood glucose less than 70 mg/dL and UNABLE to swallow/take PO glucose/juice., Starting on 12/19/23 at 1749, After treatment for hypoglycemia, recheck BG followed [...] 6 hours PRN, nausea, vomiting, Starting on 12/19/23 at 1838, Indications: Nausea and Vomiting Or ondansetron (ZOFRAN) injection 4 mgJump to med 4 mg, intravenous, Administer over 2 Minutes, Every 6 hours PRN, nausea, vomiting, if not tolerating PO, Starting on 12/19/23 at 1838, Indications: Nausea and Vomiting documented in this encounter Orders Medications Ordered That Flip ht Not Have Been Administered Count Last Ordered Date First Ordered Date acetaminophen (TYLENOL) tablet 975 mg 1 10/2023 albumin 25 % bottle 25 g 1 12/24/2023 heparin 1,000 unit/mL injection 1.5-6.9 mL 2 12/24/2023 sodium chloride 0.9% bolus 200 mL 4 024 hydrALAZINE (APRESOLINE) injection 10 mg 1 12/23/2023 dextrose (D10W) 10% bolus 250 mL 1 12/19/19 24 dextrose (GLUTOSE) 40 % gel 15 g 1 12/19/19 24 glucagon injection 1 mg 1 12/19/2023 ondansetron (ZOFRAN) injection 4 mg 1 12/18 polyethylene glycol (MIRALAX ) bulk powder 17 g 1 12/19/2023 polyethylene glycol (MIRALAX) packet 17 g 1 12/19/2023 sodium chloride 0.9% flush 0.5-20 mL 1 11/21 traMADoL (ULTRAM) tablet 50 mg 1 12/19/2023 Lab Orders Without Results Count Last Ordered D ate First Ordered Date POCT GLUCOSE DEVICE 39 12/26/2023 12/19/19 24 Nursing Count Last Ordered Date First Orde red Date MISCELLANEOUS NURSING CARE ORDER (SPECIFY) 1 12/24/2023 TELEMETRY MONITORING 2 12/19/2023 Consult Count Last Ordered Date First Orde red Date IP CONSULT TO NEPHROLOGY 1 12/19/2023 IP CONSULT TO NEUROLOGY 1 12/19/2023 IP CONSULT TO SOCIAL WORK 1 12/19/2023 Dialysis Count Last Ordered Date First Orde red Date HEMODIALYSIS/DUF 4 12/25/2023 12/20/2023 Admission Count Last Ordered Date First Orde red Date ADMIT TO INPATIENT 1 12/19/2023 Transfer Count Last Ordered Date First Orde red Date ED TO FLOOR BED REQUEST 1 12/19/2023 Discharge Count Last Ordered Date First Orde red Date DISCHARGE PATIENT 1 12/26/2023 documented in this encounter Additional Health Concerns Infection Onset Date Last Indicated Resolved Time 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 12/19/2023 12/19/2023 3:58 PM CDT documented as of this encounter Care Teams Patient Registration Supervisor Relationship Specialty Start Date End Date Cherelle Corcoran MD PCP - General Family Medicine 08/30/19 Mark Queen MD Consulting Physician Infectious Diseases 01/10/20 Rudolph Welch MD [id number] [place] [address] Consulting Physician Infectious Diseases 12/05/22 Markie Ryan MD [address] [place] [address] Consulting Physician Nephrology 12/05/22 Dulce Vega RN [address] [place] [address] [address] [place] [address] Senior Support Analyst 10/07/23 05/03/24 [place] [id number] [facility] [address] [place] [address] Consulting Physician Nephrology 10/22/23 documented as of this encounter
--- OUTSIDE RECORDS SUMMARY | 2024-07-04 04:05 | XMS_ITS | Encounter Summary ---
Author Organization [facility] Healthcare Address [address] [place] [address] Care Team Providers Care Radiology Services Manager Name Role Phone Cherelle Corcoran MD Primary Care Pro vider Mark Queen MD Unavailable [phone] Rudolph Welch MD Unavailable Markie Ryan MD Unavailable [phone] Dulce Vega RN Unavailable [phone] Jimbo Strauss MD Unavailable [phone] Reason for Referral * Consultation (Routine) - Closed Specialty Diagnoses / Procedures Referred By Contac t Referred To Contact Physical Therapy Diagnoses Primary osteoarthritis of left shoulder Perico Raphael, ANAY [address] [facility] [address] [place] [address] Phone: tel: fax: [facility] Physical Therapy [place] [address] [address] [place] [address] Phone: tel: fax: Referral ID Status Reason Start Date Expiration Date V isits Requested Visits Authorized [id number] Closed Evaluate and Treat 12/14/2023 01/12/2025 24 24 Question Answer PTRFR PT Evaluate and Treat Therapy options discussed with patient? Yes Location provided for therapy services is: Patient requested/Patient preferred Please select the performing region: External Order [171] To loc/pos [facility] [place] [[id number]] # of visits: 24 Comments 1-2 TIMES PER WEEK ROM AND STRENGTH Encounter Details Date Type Department Care Team (Late st Contact Info) Description 12/14/2023 Orders Only [facility] Orthopedics and Sports Medicine [address] [place] [address] [address] [place] [phone] Perico Raphael PA [address] [place] [address] [address] [place] [address] Primary osteoarthritis of left shoulder (Primary Dx) Social History Tobacco Use Types Packs/Day Years Used Date Smoking Tobacco: Never Smokeless Tobacco: Never Alcohol Use Standard Drinks/Week Comments Not Currently 0 (1 standard drink = 0.6 oz pur e alcohol) [facility] Utilities Answer Date Recorded In the past 12 months has [employer] electric, gas, oil, or water [employer] threatened to shut off services in your [...] week 10/30/2023 How often do you attend [facility] or jehovah's witness services? More than 4 times per year [...] in a fci (including now)? No 10/30/2023 Personal Safety Answer Date Recorded Have you ever been in or are you currently in a harmful physical or emotional relationship or is someone making you feel afraid or unsafe? Denies 12/03/2023 Comments No Sex and Gender Information Value Date Recorded Sex Assigned at Not on file Legal Sex Female 9:03 AM BAG MAKING MACHINE OPERATOR Gender Identity Female 02/08/2020 6:39 PM CDT Sexual Orientation Not on file documented as of this encounter Plan of Treatment Upcoming Encounters Date Type Department Care Team (Latest Contact Info) Description 07/13/2024 9:00 AM BAG MAKING MACHINE OPERATOR Hospital Encounter [facility] GI [facility] [address] [place] [address] Jaya Grier MD [address] [facility] [address] [address] [place] [address] 07/13/2024 9:00 AM BAG MAKING MACHINE OPERATOR - 07/13/2024 9:30 AM BAG MAKING MACHINE OPERATOR Surgery [facility] [address] [place] [address] Jaya Grier MD [address] [facility] [address] [place] [address] ESOPHAGOGASTRODUODENOSCOPY Scheduled Procedures Name Priority Associated Diagnoses Date/Ti me ESOPHAGOGASTRODUODENOSCOPY Anemia, unspecified type Gastritis without bleeding, unspecified chronicity, unspecified gastritis type 07/13/2024 9:00 AM BAG MAKING MACHINE OPERATOR COLONOSCOPY Iron deficiency anemia due to chronic blood loss Scheduled Referrals Name Type Priority Associated Diagnoses Orde r Schedule Ambulatory referral order to Physical Therapy - Outpatient Referral Routine Primary osteoarthritis of left shoulder Expected: 12/28/2023 (Approximate), Expires: 12/13/2024 documented as of this encounter Visit Diagnoses Diagnosis Primary osteoarthritis of left shoulder- Primary Anemia, unspecified type Gastritis without bleeding, unspecified chronicity, unspecified gastritis type documented in this encounter Care Teams Radiology Services Manager Relationship Specialty Start Date End Date Cherelle Corcoran MD PCP - General Family Medicine 08/30/19 Mark Queen MD Consulting Physician Infectious Diseases 01/10/20 Rudolph Welch MD [address] [facility] [facility] [address] [place] [address] Consulting Physician Infectious Diseases 12/05/22 Markie Ryan MD [address] [facility] [facility] [address] [place] [address] Consulting Physician Nephrology 12/05/22 Dulce Vega RN [address] [place] [address] [address] [place] [address] [employer] 10/07/23 05/03/24 [place] [address] [address] [place] [address] Consulting Physician Nephrology 10/22/23 documented as of this encounter
--- OUTSIDE RECORDS SUMMARY | 2024-07-04 04:05 | XMS_ITS | Encounter Summary ---
Author Organization [facility] Healthcare Address [address] [place] [address] Care Team Providers Care Photographer Still Name Role Phone Cherelle Corcoran MD Primary Care Pro vider Mark Queen MD Unavailable [phone] Rudolph Welch MD Unavailable [phone] Markie Ryan MD Unavailable [phone] Dulce Vega RN Unavailable [phone] Jimbo Strauss MD Unavailable [phone] Reason for Visit * Reason Onset Date Comments Shoulder Pain 12/02/2023 Encounter Details Date Type Department Care Team ([facility] st Contact Info) Description 12/02/2023 Nurse Triage [facility] Medical Group Primary Care at [address] [phone] Cherelle Corcoran MD [address] [place] [address] Social History Tobacco Use Types Packs/Day Years Used Date Smoking Tobacco: Never Smokeless Tobacco: Never Alcohol Use Standard Drinks/Week Comments Not Currently 0 (1 standard drink = 0.6 oz pur e alcohol) [facility] Utilities Answer Date Recorded In the [...] often do you attend chur ch or worship services? More than 4 times per year [...] file Legal Sex Female 9:03 AM CLOTH SHRINKER Gender Identity Female 02/08/2020 6:39 PM CDT Sexual Orientation Not on file documented as of this encounter Miscellaneous Notes * Telephone Encounter - Dilia Edgar RN - 12/02/2023 5:05 PM CDT Reason for Disposition [1] MODERATE pain (e.g., interferes with normal activities) AND [2] present > 3 days Protocols used: Shoulder [id number] Patient's daughter calling for the patient and is with the patient. Reports severe left shoulder pain with movement and denies pain at rest. Has mild swelling to the left side of the back and left breast area. Had shoulder x-ray today and results are pending. Denies chest pain, difficulty breathing, sweating, redness, warmth. Appointment with Nadege Galicia on 12/03/2023. Care advice given including Tylenol for pain, cold or heat, and call back instructions given regarding worsening of symptoms. Pt verbalizes understanding. * Telephone Encounter - Dilia Edgar RN - 12/02/2023 4:55 PM CDT Regarding: Severe left shoulder pain ----- Message from Brigid Rossi sent at 12/02/2023 4:51 PM CDT ----- Symptom Based Call Chief Complaint(s): Severe left shoulder pain Duration: Over the weekend What type of symptom(s) is the patient experiencing? Red Flag. Is the patient concerned they are experiencing a medical emergency requiring an ambulance? No Additional Comments: Patient had an Xray of her left Shoulder today and is having severe shoulder pain. Patient has not gotten the results back yet and denies injury. Patient's daughter Areli stated she is worried about a blood clot. Does message need to be routed? Yes-Action Needed documented in this encounter Plan of Treatment Upcoming Encounters Date Type Department Care Team (Latest Contact Info) Description 07/13/2024 9:00 AM CLOTH SHRINKER Hospital Encounter [facility] [address] [place] [address] Jyaa Grier MD [address] [place] [address] [address] [place] [address] 07/13/2024 9:00 AM CLOTH SHRINKER - 07/13/2024 9:30 AM CLOTH SHRINKER Surgery [facility] [address] [place] [address] Jaya Grier MD [facility] [facility] [address] [place] [address] ESOPHAGOGASTRODUODENOSCOPY Scheduled Procedures Name Priority Associated Diagnoses Date/Ti ut ESOPHAGOGASTRODUODENOSCOPY Anemia, unspecified type Gastritis without bleeding, unspecified chronicity, unspecified gastritis type 07/13/2024 9:00 AM CLOTH SHRINKER COLONOSCOPY Iron deficiency anemia due to chronic blood loss documented as of this encounter Visit Diagnoses Not on filedocumented in this encounter Care Teams Photographer Still Relationship Specialty Start Date End Date Cherelle Corcoran MD PCP - General Family Medicine 08/30/19 Mark Queen MD Consulting Physician Infectious Diseases 01/10/20 Rudolph Welch MD [address] [facility] [address] [place] [address] Consulting Physician Infectious Diseases 12/05/22 Markie Ryan MD [address] [facility] [address] [place] [address] Consulting Physician Nephrology 12/05/22 Dulce Vega, ALIREZA [address] [place] [address] [address] [place] [address] Director Mission 10/07/23 05/03/24 [place] [address] [facility] [address] [place] [address] Consulting Physician Nephrology 10/22/23 documented as of this encounter
--- OUTSIDE RECORDS SUMMARY | 2024-07-04 04:05 | XMS_ITS | Encounter Summary ---
Author Organization [facility] Healthcare Address [address] [place] [address] Care Team Providers Care Fire Extinguisher Technician Name Role Phone Cherelle Corcoran MD Primary Care Pro vider Mark Queen MD Unavailable [phone] Rudolph Welch MD Unavailable Markie Ryan MD Unavailable Dulce Vega RN Unavailable Jimbo Strauss MD Unavailable [phone] Reason for Referral * Diagnostic Imaging (Routine) - Closed Specialty Diagnoses / Procedures Referred By Contac t Referred To Contact Diagnoses Pain in left arm Procedures XR Shoulder Left 2 [place] [address] [address] Phone: tel: fax: [address] [address] Referral ID Status Reason Start Date Expiration Date Visits Re quested Visits Authorized [id number] Closed 12/02/2023 12/31/2024 1 1 Reason for Visit * Diagnostic Imaging (Routine) - Closed Specialty Diagnoses / Procedures Referred By Maryse t Referred To Contact Diagnoses Pain in left arm Procedures XR Shoulder Left 2 [place] [address] [address] Phone: tel: fax: [address] [phone] Referral ID Status Reason Start Date Expiration Date Visits Re quested Visits Authorized [id number] Closed 12/02/2023 12/31/2024 1 1 Encounter Details Date Type Department Care Team (Latest Contact Info) Description 12/02/2023 4:15 PM CDT - 12/02/2023 11:59 PM CDT Hospital Encounter [facility] [address] [place] [address] [place] [address] [address] Pain in left arm Discharge Disposition: Discharge to home or self care Social History Tobacco Use Types Packs/Day Years Used Date Smoking Tobacco: Never Smokeless Tobacco: Never Alcohol Use Standard Drinks/Week Comments Not Currently 0 (1 standard drink = 0.6 oz pur e alcohol) [facility] Utilities Answer Date Recorded In the past 12 months has [employer] electric, gas, oil, or water [employer] threatened to shut off services in your [...] any clubs o r organizations such as protestant groups, unions, fraternal or athletic groups, or [...] in a fpc (including now)? No 10/30/2023 Personal Safety Answer Date Recorded Have you ever been in or are you currently in a harmful physical or emotional relationship or is someone making you feel afraid or unsafe? Denies 12/03/2023 Comments No Sex and Gender Information Value Date Recorded Sex Assigned at Not on file Legal Sex Female 9:03 AM CYCLE LIAISON Gender Identity Female 02/08/2020 6:39 PM CDT Sexual Orientation Not on file documented as of this encounter Medications at Time of Discharge blood-glucose sensor (FreeStyle Madhav 3 Sensor) deviceIndications :Type 2 diabetes mellitus with diabetic neuropathy, with long-term current use of insulin ([facility]) Use for continuous glucose monitoring. Change sensor every 14 days 6 each 3 06/30/2023 flash glucose scanning reader miscIndications:T ype 2 diabetes mellitus with diabetic neuropathy, with long-term current use of insulin ([facility]) Use Madhav 3 reader to scan Madhav 3 sensor 1 each 06/30/2023 FreeStyle Madhav 3 [place] misc Use Madhav 3 reader to [...] with long-term current use of insulin ([facility]) USE DIRECTED FOUR TIMES DAILY 100 each [...] (Latest Contact Info) Description 07/13/2024 9:00 AM CYCLE LIAISON Hospital Encounter [facility] GI Lab [address] [place] [address] Jaya Grier MD [address] [facility] [address] [address] 07/13/2024 9:00 AM CYCLE LIAISON - 07/13/2024 9:30 AM CYCLE LIAISON Surgery [facility] GI Lab [address] [place] [address] Jaya Grier MD [address] [facility] [address] [place] [address] ESOPHAGOGASTRODUODENOSCOPY Scheduled Procedures Name Priority Associated Diagnoses Date/Ti me ESOPHAGOGASTRODUODENOSCOPY Anemia, unspecified type Gastritis without bleeding, unspecified chronicity, unspecified gastritis type 07/13/2024 9:00 AM CYCLE LIAISON COLONOSCOPY Iron deficiency anemia due to chronic blood loss documented as of this encounter Procedures Procedure Name Priority Date/Time Associated Diagnosis Comments XR SHOULDER LEFT 2 OR MORE VIEWS Schedule Routine, Read Routine (OP Routine) 12/02/2023 4:43 PM CDT Pain in left arm documented in this encounter Results * XR Shoulder Left [...] type documented in this encounter Care Teams Fire Extinguisher Technician Relationship Specialty Start Date End Date Cherelle Corcoran MD PCP - General Family Medicine 08/30/19 Mark Queen MD Consulting Physician Infectious Diseases 01/10/20 Rudolph Welch MD [address] [facility] [address] [place] [address] Consulting Physician Infectious Diseases 12/05/22 Markie Ryan MD [address] [facility] [address] [place] [address] Consulting Physician Nephrology 12/05/22 Dulce Vega, ALIREZA [address] [place] [address] [address] [place] [address] Credentialing Assistant 10/07/23 05/03/24 [place] [address] [address] [facility] [address] [place] [address] Consulting Physician Nephrology 10/22/23 documented as of this encounter
--- OUTSIDE RECORDS SUMMARY | 2024-07-04 04:05 | XMS_ITS | Encounter Summary ---
Author Organization [facility] Healthcare Address [address] [place] [address] Care Team Providers Care Scratch Polisher Name Role Phone Cherelle Corcoran MD Primary Care Pro vider Mark Queen MD Unavailable [phone] Rudolph Welch MD Unavailable Markie Ryan MD Unavailable [phone] Dulce Vega RN Unavailable [phone] Jimbo Strauss MD Unavailable [phone] Reason for Referral * Consultation (Elective) - Closed Specialty Diagnoses / Procedures Referred By Contac t Referred To Contact Gastroenterology Diagnoses Colon polyps Cherelle Corcoran MD [address] [place] [address] Phone: tel: fax: [facility] Gastroenterology at [address] [place] [phone] Phone: tel: Referral ID Status Reason Start Date Expiration Date V isits Requested Visits Authorized [id number] Closed Specialty Services Required 11/10/2023 12/09/2024 1 1 Question Answer Process Instructions: THE AMBULATORY REFERRAL TO GASTROENTEROLOGY IS NOT AN ORDER FOR A PROCEDURE (I.E. EGD, COLONOSCOPY.) USE THE DIRECT SCHEDULING CASE REQUEST ORDER (GI50) IF THE PATIENT REQUIRES A PROCEDURE TO BE PERFORMED. Please select the performing region: [facility] [[id number]] Please select the performing department: [id number] [[id number]] # of visits: 1 * Diagnostic Imaging (Routine) - Closed Specialty Diagnoses / Procedures Referred By Maryse lama Referred To Contact Diagnoses Encounter for screening mammogram for breast cancer Procedures Screening Mammogram Bilateral W Stalin Cherelle Corcoran MD [address] [place] [address] Phone: tel: fax: [address] [phone] Referral ID Status Reason Start Date Expiration Date Visits Re quested Visits Authorized [id number] Closed 11/10/2023 12/09/2024 1 1 * Diagnostic Imaging (Routine) - Closed Specialty Diagnoses / Procedures Referred By Maryse lama Referred To Contact Diagnoses Post-menopausal Procedures Dexa Axial Skeleton Bone Density 1 or 2 Site Cherelle Corcoran MD [address] [place] [address] Phone: tel: fax: [address] [phone] Referral ID Status Reason Start Date Expiration Date Visits Re quested Visits Authorized [id number] Closed 11/10/2023 12/09/2024 1 1 Reason for Visit * Reason Comments Medicare Wellness Encounter Details Date Type Department Care Team (Latest Contact Info) Description 11/10/2023 4:15 PM CDT Office Visit [facility] Primary Care at [address] [phone] Cherelle Corcoran MD [address] [place] [phone] Encounter for Medicare annual wellness exam (Primary Dx); Encounter for screening mammogram for breast cancer; Post-menopausal; Colon polyps; Type 2 diabetes mellitus with diabetic neuropathy, with long-term current use of insulin (HCC); Diabetic polyneuropathy associated with type 2 diabetes mellitus (CMS/HCC) (HCC); History of amputation of toe (CMS/HCC) (HCC); Primary hypertension; Mixed hyperlipidemia; ESRD on hemodialysis (CMS/HCC) (HCC); Anemia in chronic kidney disease, on chronic dialysis (HCC); Late onset Alzheimer's dementia without behavioral disturbance (HCC); Parkinsonism, unspecified Parkinsonism type (HCC); Schizoaffective disorder, bipolar type (CMS/HCC) (HCC) Social History Tobacco Use Types Packs/Day Years Used Date Smoking Tobacco: Never Smokeless Tobacco: Never Alcohol Use Standard Drinks/Week Comments Not Currently 0 (1 standard drink = 0.6 oz pur e alcohol) [facility] Utilities Answer Date Recorded In the past 12 months has [employer], gas, oil, or water [employer] threatened to shut off services in your [...] a long term (including now)? No 10/30/2023 Personal Safety Answer Date Recorded Have you ever been in or are you currently in a harmful physical or emotional relationship or is someone making you feel afraid or unsafe? 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 Gender Identity Female 02/08/2020 6:39 PM CDT Sexual Orientation Not on file documented as of this encounter Last Filed Vital Signs Vital Sign Reading Time Taken Comments Blood Pressure 122/80 11/10/2023 4:29 PM CDT Pulse 68 11/10/2023 4:29 PM CDT Temperature 36.3 ??C (97.4 ??F) 11/10/2023 4:29 PM CD T Respiratory Rate 18 11/10/2023 4:29 PM CDT Oxygen Saturation 99% 11/10/2023 4:29 PM CDT Inhaled Oxygen Concentration - - Weight 63.5 kg (140 lb) 11/10/2023 4:29 PM CDT Height 157.5 cm (5' 2 ) 11/10/2023 4:29 PM CDT Body Mass Index 25.61 11/10/2023 4:29 PM CDT documented in this encounter Progress Notes * Cherelle Corcoran MD - 11/10/2023 4:15 PM CDT Images from the original note were not included. Barbara Chakraborty is a 73 y.o. year old Black Or Non- female here an for Annual Wellness Visit. Hearing loss: referred to ENT Diabetes mellitus: follows with endocrine. 15 units lantus & 4 units humalog TIDAC +SSI. Eye exam: performance eye [facility] Neuropathy: previously on lyrica Hypertension: on metoprolol 25mg twice a day Hyperlipidemia: on 40mg atorvastatin ESRD on HD: following with nephro Alzheimer's dementia: following with neurology Parkinsonism: following with neurology, on cogentin Schizophrenia: following with psychiatry, on resperidone and zyprexa as needed HCM: mammogram due, dexa due. colonoscopy 2017 with , Medicare Health Risk Assessment Basic Information In general, would you say your health is: Good Do you have an advance directive, such as a living will or durable power of divorce attorney?: (!) No Would you like information regarding Advanced Directive (Living Will) and/or Durable Power of Vehicle Fuel Systems Converter?: (!) Yes Do you have to strain or struggle to hear/understand conversations?: No Over the last 2 weeks, how often have you been bothered by any of the following problems? Little Interest or Pleasure in Doing Things: Several days Feeling Down, Depressed, or Hopeless: Several days PHQ-2 Total Score (If total score is 3 or more points, staff should administer the PHQ-9): 2 In the past year, patient experienced: One or more falls in the last year: No Do you feel unsteady when standing or walking?: No Do you worry about falling?: No Safety Do you have a working smoke detector in your home?: Yes Does your home have throw rugs, poor lighting, or a slippery bath tub/shower?: No Do you always fasten your seatbelt when you are in a vehicle?: Yes What is your typical mode of transportation: Car Physical Activity How many days a week do you usually exercise?: 1-3 days per week How intense is your typical exercise?: Light (like stretching or slow walking) Nutrition How would you rate your appetite?: Excellent How would you describe the condition of your mouth and teeth/dentures?: Fair On a typical day, how many servings of fruits and vegetables do you eat?: 1 On a typical day, how many servings of high fiber/whole-grain foods do you eat?: 1 On a typical day, how many servings of high fat/fried foods do you eat?: 1 Have you experienced any of the following problems currently or recently? Eating: No Grooming: No Bathing: No Walking: No Using the toilet: No Memory problems: No Difficulty speaking: No Dressing: No Balance: No Pain: No Sexual Health: No Fatigue: (!) Yes Depression: (!) Yes Life Satisfaction: No Stress: (!) Yes Anger: (!) Yes Loneliness or Social Isolation: (!) Yes Suicide: No Have you experienced any of the following problems currently or recently? Laundry and/or housekeeping: No Handling money: No Shopping: No Using the Phone: No Food preparation: No Transportation: No Taking and/or getting your own medications: No Do you use prescription drugs that are not prescribed for you?: No Based on my observation of the patient, review of Health Risk Assessment (HRA) and other records, this is my assessment and recommendation regarding fall risk, hearing impairment, home safety, ADLs, or any other issues identified in the HRA: given MDPOA, following with psychiatry, upcoming appointment Problem List, Past Medical and Surgical History: Patient Active Problem List Diagnosis Diabetic neuropathy (HCC) Type 2 diabetes mellitus with diabetic neuropathy, with long-term current use of insulin (HCC) Primary hypertension History of amputation of toe (CMS/HCC) (HCC) Iron deficiency anemia Gastroesophageal reflux disease without esophagitis Mixed hyperlipidemia Schizoaffective disorder, bipolar type ([facility]) ([facility]) Encounter for Medicare annual wellness exam Late onset Alzheimer's dementia without behavioral disturbance ([facility]) Volume overload Toe necrosis ([facility]) ([facility]) Physical deconditioning Pulmonary nodule Retention of urine, unspecified Unspecified osteoarthritis, unspecified site Unsteadiness on feet Weakness Parkinsonism ([facility]) Wheezing Anemia in chronic kidney disease, on chronic dialysis ([facility]) Abnormal urinalysis Acute on chronic diastolic congestive heart failure ([facility]) ([facility]) Bibasilar consolidations Movement disorder Shortness of breath Bandemia Leg swelling AMS (altered mental status) ESRD on hemodialysis ([facility]) ([facility]) Tinnitus of both ears Mixed conductive and sensorineural hearing loss of both ears Dysfunction of both eustachian tubes Past Medical History: Diagnosis Date Anemia Arthritis CHF (congestive heart failure) ([facility]) ([facility]) Dementia ([facility]) Depression Diabetic neuropathy ([facility]) GERD (gastroesophageal reflux disease) HL (hearing loss) Hyperlipidemia Hypertension Movement disorder Osteomyelitis ([facility]) Renal disorder Schizophrenia ([facility]) Type 2 diabetes mellitus ([facility]) Past Surgical History: Procedure Laterality Date SECTION Right right foot EYE SURGERY cataracts TOE AMPUTATION Right 01/06/2020 4th toe amp/ foot debridement/ Dr. Anat Pelayo TUNNELED LINE PLACEMENT > 5 YEARS N/A 10/15/2023 Family History: Family History Problem Relation Age of Onset Diabetes Mother Heart disease Mother Kidney disease Mother Stomach cancer Father Alcohol abuse Father Diabetes Sister Diabetes Sister Diabetes Brother Social History: Social History Tobacco Use Smoking status: Never Smokeless tobacco: Never Substance and Sexual Activity Drug use: Never Sexual activity: Not Currently Partners: Male Alcohol Use: Not At Risk (11/10/2023) AUDIT-C Frequency of Alcohol Consumption: Never Average Number of Drinks: Patient does not drink Frequency of Binge Drinking: Never Allergies: No Known Allergies Medications: Current Outpatient Medications: acetaminophen (TYLENOL) 325 mg [...] spray, Administer 2 sprays into each nostril daily, Disp: 1 each, Rfl: 0 FreeStyle Madhav 3 [facility] misc, Use Madhav 3 reader to scan Madhav 3 sensor, Disp: , Rfl: insulin glargine 100 unit/mL (3 mL) pen for injection, Inject 15 Units under the skin nightly, Disp: , [...] TWICE DAILY, Disp: 45 tablet, Rfl: 0 OLANZapine (ZyPREXA) 2.5 mg tablet, Take 1 tablet (2.5 mg total) by mouth 2 (two) times a day as needed (psychosis), Disp: 20 tablet, Rfl: 0 pen needle, diabetic 32 gauge x 5/32 needle, 1 Units 4 (four) times a day, Disp: 100 each, Rfl: 3 polyethylene glycol (MIRALAX) 17 gram/dose bulk powder, Take 17 g by mouth daily as needed (Constipation), Disp: 595 g, Rfl: 0 ramelteon (ROZEREM) 8 mg tablet, Take 1 tablet (8 mg total) by mouth nightly as needed for sleep, Disp: 10 tablet, Rfl: 0 risperiDONE (RisperDAL) 1 mg tablet, Take 1 tablet (1 mg total) by mouth nightly, Disp: , Rfl: Depression Screen: PHQ Screening PHQ-2 Total Score (If total score is 3 or more points, staff should administer the PHQ-9): 2 Vitals: Vitals BP 122/80 (BP Location: Left arm, Patient Position: Sitting) Pulse 68 Temp 36.3 ??C (97.4 ??F) (Temporal) Resp 18 Ht 157.5 cm (5' 2 ) Wt 63.5 kg (140 lb) SpO2 99% BMI 25.61 kg/m?? Body mass index is 25.61 kg/m??. Exam: Physical Exam Gen: NAD, comfortable, appears as stated age Eyes: no conjunctival injection, EOMI ENMT: external ears symmetric CV: RRR without murmur, rub, gallop. Pulm: good respiratory effort, CTAB no rhonchi, rales, or wheezes Abd: soft, non-tender, non-distended, bowel sounds present Skin: no rashes or nodules, warm and dry Ext: No lower extremity edema MSK/Neuro: symmetric limb movement, using wheelchair Psych: alert and oriented to person/place Care Team Providers: Patient Care Team: Cherelle Corcoran MD as PCP - General (Family Medicine) Mark Queen MD as Consulting Physician (Infectious Diseases) Rudolph Welch MD as Consulting Physician (Infectious Diseases) Markie Ryan MD as Consulting Physician (Nephrology) Dulce Vega RN as Software Quality Tester Jimbo Strauss MD as Consulting Physician (Nephrology) Primary Pharmacy/DME suppliers: [id number] - [place], [place] - [address] [place] [address] [facility] [place] - [place], [place] - [address] [facility] [address] I reviewed the patient???s home and community safety, including driving, and made the following recommendations: lives with family, does not drive. Detection of Cognitive Impairment: The patient does have cognitive impairment based on direct observation, discussion with patient or family, or review of medical records. Health Maintenance: Health Maintenance Topics with due status: Overdue Topic Date Due DTaP/Tdap/Td Vaccine Never done Zoster Vaccine Never done Varicella Vaccines Never done Foot Exam 04/02/2021 Colon Cancer Screening-Colonoscopy 04/01/2022 Osteoporosis Screening-Bone Density Scan 01/08/2023 Covid-19 Vaccine 02/20/2023 Dilated Eye Exam 05/27/2023 Breast Cancer Screening-Mammogram 09/26/2023 Albumin Creatinine Ratio, Urine 10/11/2023 Health Maintenance Topics with due status: Not Due Topic Last Completion Date Influenza Vaccine 08/07/2022 Hemoglobin A1C 10/08/2023 Lipid Panel 10/30/2023 eGFR 11/03/2023 Depression Screening 11/10/2023 Well Visit 65+ 11/10/2023 Fall Risk Assessment 11/12/2023 Health Maintenance Topics with due status: Completed Topic Last Completion Date Pneumococcal vaccine 65+ 01/20/2019 Hepatitis B Screening 10/15/2023 Hepatitis C Screening 10/15/2023 Health Maintenance Topics with due status: Discontinued Topic Date Due Colon Cancer Screening-DNA Stool Discontinued Colon Cancer Screening-CT Colonography Discontinued Colon Cancer Screening-FIT Discontinued Colon Cancer Screening-Sigmoidoscopy Discontinued Counseling and Referral of Preventative Services: Lifestyle Recommendations Increase Physical Activity, Increase Social Engagement, Reduce Weight, and Improve Diet Advanced Directive Durable Power of Vehicle Fuel Systems Converter: Discussed Today: Living Will: Discussed Today: Assessment and Plan: Diagnoses and all orders for this visit: Encounter for Medicare annual wellness exam (Primary) Assessment & Plan: Reviewed PMH & PHQ Screening PHQ-2 Total Score (If total score is 3 or more points, staff should administer the PHQ-9): 2 Hearing/vision screening reviewed, referrals placed as needed Fall risk reviewed Reviewed medications and supplements Specialists: endocrine, nephrology, cardiology, neurology, psychiatry evidence of cognitive impairment HCM: orders placed as needed Encounter for screening mammogram for breast cancer - Screening Mammogram Bilateral W Stalin; Future Post-menopausal - Dexa Axial Skeleton Bone Density 1 or 2 Site; Future Colon polyps - Ambulatory referral to Gastroenterology; Future Type 2 diabetes mellitus with diabetic neuropathy, with long-term current use of insulin ([facility]) Assessment & Plan: Lab Results Component Value Date HGBA1C 8.2 (H) 10/08/2023 uncontrolled Following with endocrine, upcoming appointment continue 15 units lantus & humalog 4 units TIDAC +SSI Diabetic polyneuropathy associated with type 2 diabetes mellitus ([facility]) ([facility]) Assessment & Plan: Off lyrica History of amputation of toe ([facility]) ([facility]) Primary hypertension Assessment & Plan: BP controlled Continue 5mg amlodipine Mixed hyperlipidemia Assessment & Plan: Continue statin ESRD on hemodialysis ([facility]) ([facility]) Assessment & Plan: Following with nephrology Anemia in chronic kidney disease, on chronic dialysis ([facility]) Assessment & Plan: Last h/h stable Late onset Alzheimer's dementia without behavioral disturbance ([facility]) Assessment & Plan: Following with neurology Parkinsonism, unspecified Parkinsonism type ([facility]) Assessment & Plan: Following with neurology On cogentin Schizoaffective disorder, bipolar type ([facility]) ([facility]) Assessment & Plan: Following with psychiatry Patient here for annual Medicare wellness visit and for review of complete medical problem list. All the elements of the plan were completed as outlined by [facility]. A copy of the prevention plan was given to the patient. I reviewed Medicare Wellness Questionnaire (other physicians involved in care, depression screen, advanced directives), cognitive/memory, and functional assessment. I reviewed and updated the complete problem list, medication list, family history, and immunization records with the patient. I provided preventive counseling and early detection interventions to the patient through health maintenance update and summary of today's office visit. Cherelle Corcoran MD documented in this encounter Miscellaneous Notes * Assessment & Plan Note - Cherelle Corcoran MD - 11/12/2023 1:01 PM CDTAssociated Problem(s): Anemia in chronic kidney disease, on chronic dialysis (HCC) Last h/h stable * Assessment & Plan Note - Cherelle Corcoran MD - 11/10/2023 4:43 PM CDTAssociated Problem(s): ESRD on hemodialysis (CMS/HCC) (HCC) Following with nephrology * Assessment & Plan Note - Cherelle Corcoran MD - 11/10/2023 4:42 PM CDTAssociated Problem(s): Encounter for Medicare annual wellness exam Reviewed PMH & PHQ Screening PHQ-2 Total Score (If total score is 3 or more points, staff should administer the PHQ-9): 2 Hearing/vision screening reviewed, referrals placed as needed Fall risk reviewed Reviewed medications and supplements Specialists: endocrine, nephrology, cardiology, neurology, psychiatry evidence of cognitive impairment HCM: orders placed as needed * Assessment & Plan Note - Cherelle Corcoran MD - 11/10/2023 4:38 PM CDTAssociated Problem(s): Schizoaffective disorder, bipolar type (CMS/HCC) (HCC) Following with psychiatry * Assessment & Plan Note - Cherelle Corcoran MD - 11/10/2023 4:37 PM CDTAssociated Problem(s): Parkinsonism ([facility]) Following with neurology On cogentin * Assessment & Plan Note - Cherelle Corcoran MD - 11/10/2023 4:37 PM CDTAssociated Problem(s): Late onset Alzheimer's dementia without behavioral disturbance (HCC) Following with neurology * Assessment & Plan Note - Cherelle Corcoran MD - 11/10/2023 4:37 PM CDTAssociated Problem(s): 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 2 diabetes mellitus (CMS/HCC) (HCC) (Deleted) Following with nephrology * Assessment & Plan Note - Cherelle Corcoran MD - 11/10/2023 4:37 PM CDTAssociated Problem(s): Mixed hyperlipidemia Continue statin * Assessment & Plan Note - Cherelle Corcoran MD - 11/10/2023 4:37 PM CDTAssociated Problem(s): Primary hypertension BP controlled Continue 5mg amlodipine * Assessment & Plan Note - Cherelle Corcoran MD - 11/10/2023 4:37 PM CDTAssociated Problem(s): Diabetic neuropathy (HCC) (Resolved 05/16/2024) Off lyrica * Assessment & Plan Note - Cherelle Corcoran MD - 11/10/2023 4:37 PM CDTAssociated Problem(s): Type 2 diabetes mellitus with diabetic neuropathy, with long-term current use of insulin (HCC) Lab Results Component Value Date HGBA1C 8.2 (H) 10/08/2023 uncontrolled Following with endocrine, upcoming appointment continue 15 units lantus & humalog 4 units TIDAC +SSI documented in this encounter Plan of Treatment Upcoming Encounters Date Type Department Care Team (Latest Contact Info) Description 07/13/2024 9:00 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 Hospital Encounter [facility] [address] [place] [id number] Jaya Grier MD [address] [place] [address] DR GAINES [address] [place] [phone] 07/13/2024 9:00 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 - 07/13/2024 9:30 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 Surgery [facility] [address] [place] [address] Jaya Grier MD [address] [place] [address] DR GAINES [address] [place] [id number] ESOPHAGOGASTRODUODENOSCOPY Scheduled Procedures Name Priority Associated Diagnoses Date/Ti me ESOPHAGOGASTRODUODENOSCOPY Anemia, unspecified type Gastritis without bleeding, unspecified chronicity, unspecified gastritis type 07/13/2024 9:00 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 ??History of end-stage renal disease. ? Patent Legal Assistant/Model: Hexagram 49 A (S/N [id number]) CLINICAL INFORMATION: Current height: ??61 ??inches ? [...] PM T: ??01/22/2024 1:02 PM Report ID: [id number] Reading Location: ??[id number] Procedure Note Rafaela Paulino MD - 01/22/2024 EXAM DESCRIPTION: DEXA AXIAL SKELETON BONE DENSITY 1 OR MORE SITES REASON FOR STUDY: 73 y/o year old F with given history of: Post menopausal status. History of taking vitamin-D. History of end-stagerenal disease. Patent Legal Assistant/Model: Hologic Horizon A (S/N [id number]) CLINICAL INFORMATION: Current height: 61 inches Maximum [...] Rafaela Paulino M.D. TW: TW Report ID: [id number] Reading Location: [id number] Cherelle Corcoran MD IMDiaz DXA PROCEDURE S Final Result * Screening [...] age 40, based on guidelines of the [employer] (ACR Practice Parameter for the Performance of Screening and Diagnostic Mammography) and [employer]. For women [...] W STALIN 11/08/2015 Diagnostic Mammogram Bilateral W [place] BREAST TISSUE: The breasts have scattered areas [...] this encounter Visit Diagnoses Diagnosis Encounter for Medicare annual wellness exam- Primary Encounter for screening mammogram for breast cancer Post-menopausal Asymptomatic postmenopausal status (age-related) (natural) Colon polyps Benign neoplasm of colon Type 2 diabetes mellitus with diabetic neuropathy, with long-term current use of insulin (HCC) Diabetic polyneuropathy associated with type 2 diabetes mellitus (CMS/HCC) (HCC) History of amputation of toe (CMS/HCC) (HCC) Primary hypertension Unspecified essential hypertension Mixed hyperlipidemia ESRD on hemodialysis (CMS/HCC) (HCC) Anemia in chronic kidney disease, on chronic dialysis (HCC) Late onset Alzheimer's dementia without behavioral disturbance (HCC) Parkinsonism, unspecified Parkinsonism type (HCC) Schizoaffective disorder, bipolar type (CMS/HCC) (HCC) Schizoaffective disorder, unspecified condition Encounter for screening mammogram for breast cancer Post-menopausal Asymptomatic postmenopausal status (age-related) (natural) Anemia, unspecified type Gastritis without bleeding, unspecified chronicity, unspecified gastritis type documented in this encounter Historical Medications * This list may reflect changes made after this encounter. FreeStyle Madhav 3 [facility] misc Use Madhav 3 reader to scan Madhav 3 sensor 09/25/2023 added in this encounter Care Teams Scratch Polisher Relationship Specialty Start Date End Date Cherelle Corcoran MD PCP - General Family Medicine 08/30/19 Mark Queen MD Consulting Physician Infectious Diseases 01/10/20 Rudolph Welch MD [address] [facility] [place] [address] Consulting Physician Infectious Diseases 12/05/22 Markie Ryan MD [address] [facility] [place] [address] Consulting Physician Nephrology 12/05/22 Dulce Vega RN [address] [place] [address] [address] [place] [address] Software Quality Tester 10/07/23 05/03/24 [place] [address] [address] [facility] [address] [place] [address] Consulting Physician Nephrology 10/22/23 documented as of this encounter
--- OUTSIDE RECORDS SUMMARY | 2024-07-04 04:06 | XMS_ITS | Encounter Summary ---
Author Organization [facility] Healthcare Address [address] [place] [address] Care Team Providers Care Auto Job Estimator Name Role Phone Cherelle Corcoran MD Primary Care Pro vider Mark Queen MD Unavailable [phone] Rudolph Welch MD Unavailable Markie Ryan MD Unavailable [phone] Dulce Vega RN Unavailable Jimbo Strauss MD Unavailable [phone] Encounter Details Date Type Department Care Team (Latest Contact Info) Description 10/22/2023 1:49 PM CDT - 10/22/2023 11:59 PM CDT Hospital Encounter [facility] [address] [place], [place] [id number] Emergency, Room R Discharge Disposition: Discharge to home or self care Social History Tobacco Use Types Packs/Day Years Used Date Smoking Tobacco: Never Smokeless Tobacco: Never Alcohol Use Standard Drinks/Week Comments Not Currently 0 (1 standard drink = 0.6 oz pur e alcohol) [facility] Utilities Answer Date Recorded In the past 12 months has [employer] electric, gas, oil, or water company threatened to shut off services in your home? No 10/08/2023 Social Connection and Isolat ion Panel [NHANES] Answer Date Recorded In a typical week, how many times do you talk on the phone with family, friends, or neighbors? More than three times a week 10/08/2023 How often do you get togethe r with friends or relatives? More than three times a week 10/08/2023 How often do you attend chur ch or lutheran services? 1 to 4 times per year 10/08/2023 Do you belong to any clubs o r organizations such as latter day groups, unions, fraternal or athletic groups, or school groups? No 10/08/2023 How often do you attend meet ings of the clubs or organizations you belong to? Never 10/08/2023 Are you , , di vorced, , never , or living with a partner? 10/08/2023 AUDIT-C Answer Date Recorded Q1: How often [...] medical care, and heating? Not very hard 10/08/2023 PHQ-2 Answer Date Recorded PHQ-2 Total Score (If total score is 3 or more points, staff should administer the PHQ-9) 0 06/09/2022 Hunger Vital Sign Answer Date Recorded Within the past 12 months, y ou worried that your food would run out before you got the money to buy more. Never true 10/08/19 24 Within the past 12 months, t he food you bought just didn't last and you didn't have money to get more. Never true 10/08/2023 PRAPARE - Transportation Answer Date Re corded In the past 12 months, has l ack of transportation kept you from medical appointments or from getting medications? No 09/20 In the past 12 months, has l ack of transportation kept you from meetings, work, or from getting things needed for daily living? No 10/08/2023 Housing Stability Vital Sign Answer Fuentes e Recorded In the last 12 months, was t here a time when you were not able to pay the mortgage or rent on time? No 10/08/2023 In the last 12 months, how many places have you lived? 1 10/08/2023 In the last 12 months, was t here a time when you did not have a steady place to sleep or slept in a usp (including now)? No 10/08/2023 Personal Safety Answer Date Recorded Have you ever been in or are you currently in a harmful physical or emotional relationship or is someone making you feel afraid or unsafe? Denies 10/07/2023 Comments No Sex and Gender Information Value Date Recorded Sex Assigned at Not on file Legal Sex Female 9:03 AM DEVELOPMENTAL WRITING INSTRUCTOR Gender Identity Female 02/08/2020 6:39 PM [...] sensor 1 each 06/30/2023 FreeStyle Madhav 3 [place] misc Use Madhav 3 reader to scan [...] needed for pain 30 tablet 1 03/24/2023 06/29/202 4 atorvastatin (LIPITOR) 20 mg tablet Take 1 tablet (20 mg total) by mouth nightly 90 tablet 04/24/2023 4 benztropine (COGENTIN) 1 mg tablet Take 1.5 tablets (1.5 mg total) by mouth nightly 45 tablet 11/13/2022 4 calcium acetate,phosphat bind, (PHOSLO) 667 mg capsule Take 1 capsule (667 mg total) by mouth 3 (three) times a day with meals 10/22/2023 4 famotidine (PEPCID) 10 mg tablet Take [...] tartrate (LOPRESSOR) 25 mg immediate release tablet Take 0.25 tablets (6.25 mg total) by mouth 2 (two) times a day 10/22/2023 4 OLANZapine (ZyPREXA) 2.5 mg tablet Take [...] (Latest Contact Info) Description 07/13/2024 9:00 AM DEVELOPMENTAL WRITING INSTRUCTOR Hospital Encounter [facility] [address] [place] [address] Jaya Grier MD [address] [place] [address] 07/13/2024 9:00 AM DEVELOPMENTAL WRITING INSTRUCTOR - 07/13/2024 9:30 AM DEVELOPMENTAL WRITING INSTRUCTOR Surgery [facility] [address] [place] [address] Jaya Grier MD [address] [place] [address] ESOPHAGOGASTRODUODENOSCOPY Scheduled Procedures Name Priority Associated Diagnoses Date/Ti me ESOPHAGOGASTRODUODENOSCOPY Anemia, unspecified type Gastritis without bleeding, unspecified chronicity, unspecified gastritis type 07/13/2024 9:00 AM DEVELOPMENTAL WRITING INSTRUCTOR COLONOSCOPY Iron deficiency anemia due to chronic blood loss documented as of this encounter Visit Diagnoses Not on filedocumented in this encounter Care Teams Auto Job Estimator Relationship Specialty Start Date End Date Cherelle Corcoran MD PCP - General Family Medicine 08/30/19 Mark Queen MD Consulting Physician Infectious Diseases 01/10/20 Rudolph Welch MD [address] [place] [address] Consulting Physician Infectious Diseases 12/05/22 Markie Ryan MD [address] [place] [address] Consulting Physician Nephrology 12/05/22 Dulce Vega RN [address] [place] [address] [address] [place] [address] Seed Specialist 10/07/23 05/03/24 [place] [address] [facility] [address] [place] [address] Consulting Physician Nephrology 10/22/23 documented as of this encounter
--- OUTSIDE RECORDS SUMMARY | 2024-07-04 04:06 | XMS_ITS | Encounter Summary ---
Author Organization [facility] Healthcare Address [address] [place] [address] Care Team Providers Care Party Plan Sales Director Name Role Phone Cherelle Corcoran MD Primary Care Pro vider Mark Queen MD Unavailable [phone] Rudolph Welch MD Unavailable [phone] Markie Ryan MD Unavailable [phone] Dulce Vega RN Unavailable Jimbo Strauss MD Unavailable [phone] Reason for Visit * Reason Onset Date Comments Appointment Request 2023 Encounter Details Date Type Department Care Team (Late st Contact Info) Description 2023 Telephone [facility] Medical Group Primary Care at [address] [place] [address] Dulce Vega, ALIREZA [address] [place] [address] [address] [place] [address] Appointment Request Social History Tobacco Use Types Packs/Day Years Used Date Smoking Tobacco: Never Smokeless Tobacco: Never Alcohol Use Standard Drinks/Week Comments Not Currently 0 (1 standard drink = 0.6 oz pur e alcohol) [facility] Utilities Answer Date [...] you attend chur ch or anabaptist services? 1 to 4 times per year [...] slept in a detention (including now)? No 10/08/2023 Personal Safety Answer Date Recorded Have you ever been in or are you currently in a harmful physical or emotional relationship or is someone making you feel afraid or unsafe? Denies 10/07/2023 Comments No Sex and Gender Information Value Date Recorded Sex Assigned at Not on file Legal Sex Female 9:03 AM RESOURCE RECOVERY ENGINEER Gender Identity Female 02/08/2020 6:39 PM CDT Sexual Orientation Not on file documented as of this encounter Miscellaneous Notes * Telephone Encounter - Valeria Jackson - 2023 1:49 PM CDT Contacted patient's daughter to schedule her hospital f/u appointment with Dr Hart for 10-30-23./ts * Telephone Encounter - Dulce Vega RN - 2023 11:08 AM CDT Patient was recently admitted at from 10/22/23 to 10/23/23 for CHF. Admitted to from 10/05 to 10/21 for CHF and was started on hemodialysis. ED visit on 10/28 for dialysis access safety check (has not completed dialysis since 10/21 - plan to gotomorrow at 1300) ACO did not schedule because: No provider availability identified Please have someone within the practice contact patient to schedule. Please schedule as soon as possible. Thank you, Dulce IRELAND, RN, [facility] - [facility] Tape Edge Machine Operator [phone] documented in this encounter Plan of Treatment Upcoming Encounters Date Type Department Care Team (Latest Contact Info) Description 07/13/2024 9:00 AM RESOURCE RECOVERY ENGINEER Hospital Encounter [facility] [address] [place] [address] Jaya Grier MD [address] [facility] [address] [place] [address] 07/13/2024 9:00 AM RESOURCE RECOVERY ENGINEER - 07/13/2024 9:30 AM RESOURCE RECOVERY ENGINEER Surgery [facility] [address] [place] [address] Jaya Grier MD [address] [facility] [address] [place] [address] ESOPHAGOGASTRODUODENOSCOPY Scheduled Procedures Name Priority Associated Diagnoses Date/Ti me ESOPHAGOGASTRODUODENOSCOPY Anemia, unspecified type Gastritis without bleeding, unspecified chronicity, unspecified gastritis type 07/13/2024 9:00 AM RESOURCE RECOVERY ENGINEER COLONOSCOPY Iron deficiency anemia due to chronic blood loss documented as of this encounter Visit Diagnoses Not on filedocumented in this encounter Care Teams Party Plan Sales Director Relationship Specialty Start Date End Date Cherelle Corcoran MD PCP - General Family Medicine 08/30/19 Mark Queen MD Consulting Physician Infectious Diseases 01/10/20 Rudolph Welch MD [address] [facility] [address] [place] [address] Consulting Physician Infectious Diseases 12/05/22 Markie Ryan MD [address] [facility] [address] [place] [address] Consulting Physician Nephrology 12/05/22 Dulce Vega RN [address] [place] [address] [address] [place] [address] Tape Edge Machine Operator 10/07/23 05/03/24 [place] [address] [facility] [address] [place] [address] Consulting Physician Nephrology 10/22/23 documented as of this encounter
--- OUTSIDE RECORDS SUMMARY | 2024-07-04 04:06 | XMS_ITS | Encounter Summary ---
Author Organization [facility] Healthcare Address [address] [place] [address] Care Team Providers Care Contact Lens Flashing Puncher Name Role Phone Cherelle Corcoran MD Primary Care Pro vider Mark Queen MD Unavailable [phone] Rudolph Welch MD Unavailable Markie Ryan MD Unavailable [phone] Dulce Vega RN Unavailable Jimbo Strauss MD Unavailable [phone] Reason for Visit * Reason Onset Date Comments Case Management- Medication 2023 Miss ing medications following AMA from SNF Encounter Details Date Type Department Care Team (Late st Contact Info) Description 2023 Telephone [facility] Medical Group Primary Care at [address] [place] [address] Dulce Vega, ALIREZA [address] [place] [address] [address] [place] [address] Case Management- Medication (Missing medications following AMA from SNF) Social History Tobacco Use Types Packs/Day Years Used Date Smoking Tobacco: Never Smokeless Tobacco: Never Alcohol Use Standard Drinks/Week Comments Not Currently 0 (1 standard drink = 0.6 oz pur e alcohol) [facility] Utilities Answer Date Recorded In [...] often do you attend chur ch or alevism services? More than 4 times per year [...] on file Legal Sex Female 9:03 AM COLLEGE TUTOR Gender Identity Female 02/08/2020 6:39 PM CDT Sexual Orientation Not on file documented as of this encounter Ordered Prescriptions Prescription Sig Dispense Quantity Refills Last Filled Start Date End Date calcium acetate,phosphat bind, (PHOSLO) 667 mg capsule Take 1 capsule (667 mg total) by mouth 3 (three) times a day with meals 90 capsule 2023 4 metoprolol tartrate (LOPRESSOR) 25 mg immediate release tablet Take 0.25 tablets (6.25 mg total) by mouth 2 (two) times a day 15 tablet 2023 4 documented in this encounter Miscellaneous Notes * Telephone Encounter - Cherelle Corcoran MD - 2023 4:16 PM CDT Sent to pharmacy. Dr. Nilo Hawkins * Telephone Encounter - Dulce Vega RN - 2023 11:14 AM CDT Zhou, my name is Dulce and I am a [facility] ACO Nurse Environmental Programs Manager. Situation: Patient left SNF AMA on 10/21. She DOES NOT have the [facility] newly prescribed medications metoprolol or Phoslo Nursing Recommendation/Action(s): Please send new prescriptions of metoprolol and Phoslo to: [id number] - [place], [place] - [address] [place] [address] What are your thoughts? Please advise. Thank you for your time and consideration. Please let me know how I can assist. Dulce IRELAND RN, [facility] Environmental Programs Manager [phone] documented in this encounter Plan of Treatment Upcoming Encounters Date Type Department Care Team (Latest Contact Info) Description 07/13/2024 9:00 AM COLLEGE TUTOR Hospital Encounter [facility] GI Lab [address] [place] [address] Jaya Grier MD [address] [place] [address] [address] [place] [address] 07/13/2024 9:00 AM COLLEGE TUTOR - 07/13/2024 9:30 AM [facility] Surgery [facility] Lab [address] [place] [address] Jaya Grier MD [facility] [facility] [address] [place] [address] ESOPHAGOGASTRODUODENOSCOPY Scheduled Procedures Name Priority Associated Diagnoses Date/Ti il ESOPHAGOGASTRODUODENOSCOPY Anemia, unspecified type Gastritis without bleeding, unspecified chronicity, unspecified gastritis type 07/13/2024 9:00 AM COLLEGE TUTOR COLONOSCOPY Iron deficiency anemia due to chronic blood loss documented as of this encounter Visit Diagnoses Not on filedocumented in this encounter Discontinued Medications Medication Sig Discontinue Reason Start Date End Da te calcium acetate,phosphat bind, (PHOSLO) 667 mg capsule Take 1 capsule (667 mg total) by mouth 3 (three) times a day with meals Reorder 10/22/2023 2023 metoprolol tartrate (LOPRESSOR) 25 mg immediate release tablet Take 0.25 tablets (6.25 mg total) by mouth 2 (two) times a day Reorder 10/22/2023 2023 documented as of this encounter Additional Health Concerns Infection Onset Date Last Indicated Resolved Time COVID: Suspected 10/29/2023 10/30/2023 10/30/2023 10:59 AM CDT documented as of this encounter Care Teams Contact Lens Flashing Puncher Relationship Specialty Start Date End Date Cherelle Corcoran MD PCP - General Family Medicine 08/30/19 Mark Queen MD Consulting Physician Infectious Diseases 01/10/20 Rudolph Welch MD [address] [facility] [address] [place] [address] Consulting Physician Infectious Diseases 12/05/22 Markie Ryan MD [address] [facility] [address] [address] [place] [address] Consulting Physician Nephrology 12/05/22 Dulce Vega RN [address] [place] [address] [address] [place] [address] Environmental Programs Manager 10/07/23 05/03/24 [place] [address] [facility] [address] [place] [address] Consulting Physician Nephrology 10/22/23 documented as of this encounter
--- OUTSIDE RECORDS SUMMARY | 2024-07-04 04:06 | XMS_ITS | Encounter Summary ---
Author Organization [facility] Healthcare Address [address] [place] [address] Care Team Providers Care 5Th Grade Teacher Name Role Phone Cherelle Corcoran MD Primary Care Pro vider Mark Queen MD Unavailable [phone] Rudolph Welch MD Unavailable Markie Ryan MD Unavailable Dulce Vega RN Unavailable [phone] Jimbo Strauss MD Unavailable [phone] Reason for Visit * Reason Comments Vascular Access Problem Encounter Details Date Type Department Care Team (Late st Contact Info) Description 10/27/2023 5:33 PM CDT - 10/27/2023 8:38 PM CDT Emergency [facility] Emergency Department [address] [place] [address] [place] [id number] [place] [address] ESRD (end stage renal disease) (CMS/HCC) (HCC) (Primary Dx) Discharge Disposition: Discharge to home or self care Social History Tobacco Use Types Packs/Day Years Used Date Smoking Tobacco: Never Smokeless Tobacco: Never Alcohol Use Standard Drinks/Week Comments Not Currently 0 (1 standard drink = 0.6 oz pur e alcohol) [facility] Utilities Answer Date Recorded In [...] you attend chur ch or mormonism services? 1 to 4 times per year [...] in a care home (including now)? No 10/08/2023 Personal Safety Answer Date Recorded Have you ever been in or are you currently in a harmful physical or emotional relationship or is someone making you feel afraid or unsafe? Denies 10/07/2023 Comments No Sex and Gender Information Value Date Recorded Sex Assigned at Not on file Legal Sex Female 9:03 AM HANDS PARTER Gender Identity Female 02/08/2020 6:39 PM CDT Sexual Orientation Not on file documented as of this encounter Last Filed Vital Signs Vital Sign Reading Time Taken Comments Blood Pressure 156/92 10/27/2023 6:35 PM CDT Pulse 75 10/27/2023 6:35 PM CDT Temperature 36.8 ??C (98.2 ??F) 10/27/2023 12:29 PM C DT Respiratory Rate 17 10/27/2023 6:35 PM CDT Oxygen Saturation 100% 10/27/2023 6:35 PM CDT Inhaled Oxygen Concentration - - Weight 61.2 kg (135 lb) 10/27/2023 12:29 PM CDT Height 157.5 cm (5' 2 ) 10/27/2023 12:29 PM CDT Body Mass Index 24.69 10/27/2023 12:29 PM CDT documented in this encounter Discharge Instructions * Attachments The following attachments cannot be sent through Care Everywhere. * Chronic Kidney Disease (CKD) (Macedonian) documented in this encounter Medications at Time of Discharge blood-glucose sensor (FreeStyle Madhav 3 Sensor) deviceIndications :Type 2 diabetes mellitus with diabetic neuropathy, with long-term current use of insulin ([facility]) Use for continuous glucose monitoring. Change sensor every 14 days 6 each 3 06/30/2023 flash glucose scanning reader miscIndications:T ype 2 diabetes mellitus with diabetic neuropathy, with long-term current use of insulin ([facility]) Use Madhav 3 reader to scan Madhav 3 sensor 1 each 06/30/2023 FreeStyle Madhav 3 [place] misc Use Madhav 3 reader to scan [...] for pain 30 tablet 1 03/24/2023 4 atorvastatin (LIPITOR) 20 mg tablet Take [...] neuropathy, with long-term current use of insulin ([facility]) Use to continually monitor glucose, [...] documented in this encounter ED Notes * Willis Vieyra MD - 10/27/2023 5:49 PM CDT HPI Chief Complaint Patient presents with Vascular Access Problem Pt presents with daughter who is pt paint maker and reports last night the pt had attempted to pull out her dialysis access in the right shoulder. The above entry was entered by triage nurse. No EMS note available if applicable Patient can provide no meaningful history. Per the documentation available to me that was concern for patient's dialysis catheter. HPI Patient History: Patient Active Problem List Diagnosis Date Noted Alzheimer's dementia (HCC) 10/12/2023 Leg swelling 10/07/2023 Diabetes mellitus with hyperglycemia ([facility]) ([facility]) 10/07/2023 Dyslipidemia 10/07/2023 GI bleed 12/20/2022 Bandemia 12/20/2022 Shortness of breath 12/13/2022 Acute on chronic diastolic congestive heart failure ([facility]) ([facility]) 12/06/2022 Bibasilar consolidations 12/06/2022 Movement disorder 12/06/2022 Acute kidney injury superimposed on CKD ([facility]) 11/30/2022 Abnormal urinalysis 11/07/2022 Osteomyelitis of great toe of right foot ([facility]) ([facility]) 11/06/2022 Anemia in stage 4 chronic kidney disease ([facility]) 10/10/2022 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[facility]) 08/14/2022 Pulmonary nodule 11/16/2021 Physical deconditioning 11/15/2021 Left leg DVT ([facility]) 11/15/2021 Toe necrosis ([facility]) ([facility]) 10/07/2021 Anemia 09/07/2021 Volume overload 09/06/2021 Retention of urine, unspecified 08/22/2021 Unspecified osteoarthritis, unspecified site 08/22/2021 Unsteadiness on feet 08/22/2021 Weakness 08/22/2021 Late onset Alzheimer's dementia without behavioral disturbance ([facility]) 08/19/2021 Encounter for Medicare annual wellness exam 01/08/2021 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 2 diabetes mellitus ([facility]) ([facility]) 12/11/2020 Schizoaffective disorder, bipolar type ([facility]) ([facility]) 10/10/2020 Mixed hyperlipidemia 04/03/2020 Iron deficiency anemia 04/02/2020 Gastroesophageal reflux disease without esophagitis 04/02/2020 Amputation of toe of right foot ([facility]) ([facility]) 01/19/2020 Primary hypertension 12/13/2019 Type 2 diabetes mellitus with diabetic neuropathy, with long-term current use of insulin ([facility]) 08/30/2019 Diabetic neuropathy ([facility]) Past Medical History: Diagnosis Date Anemia Arthritis CHF (congestive heart failure) ([facility]) ([facility]) Dementia ([facility]) Depression Diabetic neuropathy ([facility]) GERD (gastroesophageal reflux disease) HL (hearing loss) Hyperlipidemia Hypertension Movement disorder Osteomyelitis ([facility]) Renal disorder Schizophrenia ([facility]) Type 2 diabetes mellitus (HCC) Past Surgical [...] Social History Social History Narrative Originally From [place] Grew up with her mom and dad. 12th grade - graduated. [employer]. [employer] - none. [employer]. I never worked. Single. Review of Systems Review of Systems All other systems reviewed and are negative. Physical Exam ED Triage Vitals [10/27/23 1229] Temp Pulse Resp BP SpO2 36.8 ??C (98.2 ??F) 77 18 (!) 182/74 99 % Temp src Heart Rate Source Patient Position BP Location FiO2 (%) Tympanic -- Sitting Left arm -- Height Height Method Weight Weight Method 1.575 m (5' 2 ) -- 61.2 kg (135 lb) -- Physical Exam Vitals and nursing note reviewed. [...] seconds. Neurological: Mental Status: She is alert. Mental status is at baseline. She is disoriented and confused. Psychiatric: Mood and Affect: Mood normal. MDM Medical Decision Making Amount and/or Complexity of Data Reviewed Labs: ordered. Details: Results for orders placed or performed during the hospital encounter of 10/27/23 -CBC without differential: Result Value Ref Range WBC 10.3 (H) 3.8 - 9.9 K/* Hgb 10.7 (L) 11.9 - 15.5 * Hct 34.5 (L) 35.6 - 45.5 % Plt 309 150 - 400 K/* MPV 11.1 9.1 - 12.3 fL RBC 3.52 (L) 3.90 - 5.20 * MCV 98.0 (H) 81.3 - 96.4 * MCH 30.4 27.1 - 33.3 * MCHC 31.0 (L) 32.3 - 35.7 * RDW CV 13.9 11.1 - 14.9 % RDW SD 50.2 (H) 35.7 - 48.1 * NRBC abs 0.00 0.00 - 0.01 * -Basic metabolic panel: Result Value Ref Range Sodium 144 135 - 145 mm* Potassium, pl 5.5 (H) 3.3 - 4.9 mm* Chloride 108 97 - 110 mmo* CO2 20 (L) 22 - 32 mmol* Anion gap 16 (H) 2 - 15 mmol/L BUN 66 (H) 6 - 25 mg/dL Creatinine 4.71 (H) 0.60 - 1.10 * Glucose 192 70 - 199 mg/* Calcium 9.3 8.5 - 10.3 m* -eGFR: Result Value Ref Range eGFR 9 (L) >=60 mL/min/* *Note: Due to a large number of results and/or encounters for the requested time period, some results have not been displayed. A complete set of results can be found in Results Review. Discussion of management or test interpretation with external provider(s): Both ports on patient's dialysis catheter flushing withdrawal. Visual inspection of the catheter is unremarkable. Catheter is in place. Sutures are in place. There is no drainage. Catheter appears to be functioning. Patient's ED evaluation is not consistent with emergent need for dialysis. Furthermore patient's evaluation not consistent with other urgent/emergent needs at this time. Patient is appropriate to be discharged from managed as an outpatient. I attempted to call patient's daughter given the numbers in the medical record however was unsuccessful. Two of the numbers were not accepting calls. The 3rd number a voicemail was left. Final diagnoses: ESRD (end stage renal disease) ([facility]) ([facility]) Willis Vieyra MD 10/27/231951 * Deepti Denis, RN - 10/27/2023 12:26 PM CDT Pt presents with daughter who is pt paint maker and reports last night the pt had attempted to pull out her dialysis access in the right shoulder. documented in this encounter Plan of Treatment Upcoming Encounters Date Type Department Care Team (Latest Contact Info) Description 07/13/2024 9:00 AM HANDS PARTER Hospital Encounter [facility] [address] [place] [address] Jaya Grier MD [facility] [address] [place] [address] 07/13/2024 9:00 AM HANDS PARTER - 07/13/2024 9:30 AM HANDS PARTER Surgery [facility] [address] [place] [address] Jaya Grier MD [facility] [address] [place] [id number] ESOPHAGOGASTRODUODENOSCOPY Scheduled Procedures Name Priority Associated Diagnoses Date/Ti wv ESOPHAGOGASTRODUODENOSCOPY Anemia, unspecified type Gastritis without bleeding, unspecified chronicity, unspecified gastritis type 07/13/2024 9:00 AM HANDS PARTER COLONOSCOPY Iron deficiency anemia due to chronic blood loss documented as of this encounter Procedures Procedure Name Priority Date/Time Associated Diagnosis Comments EGFR STAT 10/27/2023 6:28 PM CDT CBC WITHOUT DIFFERENTIAL STAT 10/27/2023 6:28 PM CDT BASIC METABOLIC PANEL STAT 10/27/2023 6:28 PM CDT documented in this encounter Results * (ABNORMAL) eGFR (10/27/2023 6:28 PM CDT) eGFR 9(L) >=60 mL/min/1. 73 m2 [...] interpretive data was last reviewed 2021. Blood 10/27/2023 6:28 PM CDT 10/27/2023 6:39 PM CDT us Willis Vieyra MD LAB BLOOD ORDERABLES Final Result [facility] [address] Department [place] [address] * (ABNORMAL) Basic metabolic panel (10/27/2023 6:28 PM CDT) Pathologist [facility] Sodium 144 135 - 145 mmol/L Potassium, pl 5.5(H) 3.3 - 4.9 mmol/L [facility] Chloride 108 97 - 110 mmol/L [facility] CO2 20(L) 22 - 32 mmol/L [facility] Anion gap 16(H) 2 - 15 mmol/L [facility] BUN 66(H) 6 - 25 mg/dL [facility] Creatinine 4.71(H) 0.60 - 1.10 mg/dL [facility] Glucose 192 70 - 199 mg/dL [facility] Comment: Interpretive Data Fasting glucose >/= [...] interpretive data was last revised 2022. Calcium 9.3 8.5 - 10.3 mg/dL [facility] Blood 10/27/2023 6:28 PM CDT 10/27/2023 6:39 PM CDT us Willis Vieyra MD LAB BLOOD ORDERABLES Final Result [facility] [address] [address] [place] [address] * (ABNORMAL) CBC without differential (10/27/2023 6:28 PM CDT) WBC 10.3(H) 3.8 - 9.9 K/cumm Hgb 10.7(L) 11.9 - 15.5 g/dL [facility] Hct 34.5(L) 35.6 - 45.5 % [facility] Plt 309 150 - 400 K/cumm [facility] MPV 11.1 9.1 - 12.3 fL [facility] RBC 3.52(L) 3.90 - 5.20 M/cumm [facility] MCV 98.0(H) 81.3 - 96.4 fL [facility] MCH 30.4 27.1 - 33.3 pg [facility] MCHC 31.0(L) 32.3 - 35.7 g/dL [facility] RDW CV 13.9 11.1 - 14.9 % [facility] CH RDW SD 50.2(H) 35.7 - 48.1 fL [facility] NRBC abs 0.00 0.00 - 0.01 K/cumm [facility] Blood 10/27/2023 6:28 PM CDT 10/27/2023 6:39 PM CDT Willis Vieyra MD LAB BLOOD ORDERABLES Final Result [facility] [address] [address] [place] [address] documented in this encounter Visit Diagnoses Diagnosis ESRD (end stage renal disease) (CMS/HCC) (HCC)- Primary End stage renal disease Anemia, unspecified type Gastritis without bleeding, unspecified chronicity, unspecified gastritis type documented in this encounter Care Teams 5Th Grade Teacher Relationship Specialty Start Date End Date Cherelle Corcoran MD PCP - General Family Medicine 08/30/19 Mark Queen MD Consulting Physician Infectious Diseases 01/10/20 Rudolph Welch MD [address] [facility] [address] [place] [address] Consulting Physician Infectious Diseases 12/05/22 Markie Ryan MD [address] [facility] [address] [place] [address] Consulting Physician Nephrology 12/05/22 Dulce Vega, ALIREZA [address] [place] [address] [address] [place] [address] Dial Mounter 10/07/23 05/03/24 [place] [address] [address] Consulting Physician Nephrology 10/22/23 documented as of this encounter
--- OUTSIDE RECORDS SUMMARY | 2024-07-04 04:06 | XMS_ITS | Encounter Summary ---
Author Organization [facility] Healthcare Address [address] [place] [address] Care Team Providers Care Oncology Rep Name Role Phone Cherelle Corcoran MD Primary Care Pro vider Mark Queen MD Unavailable [phone] Rudolph Welch MD Unavailable Markie Ryan MD Unavailable [phone] Dulce Vega RN Unavailable [phone] Jimbo Strauss MD Unavailable [phone] Reason for Visit * Reason Onset Date Comments Medical Question/Miscellaneous 10/26/2023 Encounter Details Date Type Department Care Team ([facility] st Contact Info) Description 10/26/2023 Telephone [facility] Primary Care at [address] [phone] Cherelle Corcoran MD [address] [place] [id number] Medical Question/Miscellaneous Social History Tobacco Use Types Packs/Day Years Used Date Smoking Tobacco: Never Smokeless Tobacco: Never Alcohol Use Standard Drinks/Week Comments Not Currently 0 (1 standard drink = 0.6 oz pur e alcohol) [facility] Utilities Answer Date [...] you attend chur ch or hindu services? 1 to 4 times per year [...] slept in a residential (including now)? No 10/08/2023 Personal Safety Answer Date Recorded Have you ever been in or are you currently in a harmful physical or emotional relationship or is someone making you feel afraid or unsafe? Denies 10/07/2023 Comments No Sex and Gender Information Value Date Recorded Sex Assigned at Not on file Legal Sex Female 9:03 AM OUTREACH MANAGER Gender Identity Female 02/08/2020 6:39 PM CDT Sexual Orientation Not on file documented as of this encounter Miscellaneous Notes * Telephone Encounter - Anshu Platt MA - 10/27/2023 8:25 AM CDT Addressed in sep enc. * Telephone Encounter - Pérez Spencer - 10/26/2023 4:27 PM CDT Medical Question/Miscellaneous Caller? s Concern: Pt's daughter, Areli states that pt had a referral for OT/PT & she wantedto know if patient could get these services at home instead of going through an assisted living facility > Please contact Does message need to be routed? Yes-Action Needed documented in this encounter Plan of Treatment Upcoming Encounters Date Type Department Care Team (Latest Contact Info) Description 07/13/2024 9:00 AM OUTREACH MANAGER Hospital Encounter [facility] [address] [place] [address] Jaya Grier MD [address] [facility] [address] [place] [address] 07/13/2024 9:00 AM OUTREACH MANAGER - 07/13/2024 9:30 AM OUTREACH MANAGER Surgery [facility] [address] [place] [address] Jaya Grier MD [address] [facility] [address] [place] [address] ESOPHAGOGASTRODUODENOSCOPY Scheduled Procedures Name Priority Associated Diagnoses Date/Ti me ESOPHAGOGASTRODUODENOSCOPY Anemia, unspecified type Gastritis without bleeding, unspecified chronicity, unspecified gastritis type 07/13/2024 9:00 AM OUTREACH MANAGER COLONOSCOPY Iron deficiency anemia due to chronic blood loss documented as of this encounter Visit Diagnoses Not on filedocumented in this encounter Care Teams Oncology Rep Relationship Specialty Start Date End Date Cherelle Corcoran MD PCP - General Family Medicine 08/30/19 Mark Queen MD Consulting Physician Infectious Diseases 01/10/20 Rudolph Welch MD [address] [facility] [address] [place] [address] Consulting Physician Infectious Diseases 12/05/22 Markie Ryan MD [address] [facility] [address] [place] [address] Consulting Physician Nephrology 12/05/22 Dulce Vega, ALIREZA [address] [place] [address] [address] [place] [address] Fireman 10/07/23 05/03/24 [place] [address] [facility] [address] [place] [address] Consulting Physician Nephrology 10/22/23 documented as of this encounter
--- OUTSIDE RECORDS SUMMARY | 2024-07-04 04:06 | XMS_ITS | Encounter Summary ---
Author Organization [facility] Healthcare Address [address] [place] [address] Care Team Providers Care Used Car Salesperson Name Role Phone Cherelle Corcoran MD Primary Care Pro vider Mark Queen MD Unavailable [phone] Rudolph Welch MD Unavailable Markie Ryan MD Unavailable [phone] Dulce Vega RN Unavailable Jimbo Strauss MD Unavailable [phone] Encounter Details Date Type Department Care Team (Late st Contact Info) Description 2023 Telephone [facility] Behavioral [facility] [address] [facility] [address] [place] [phone] [place] [address] [address] Social History Tobacco Use Types Packs/Day Years Used Date Smoking Tobacco: Never Smokeless Tobacco: Never Alcohol Use Standard Drinks/Week Comments Not Currently 0 (1 standard drink = 0.6 oz pur e alcohol) [facility] Utilities Answer Date Recorded In the past 12 months has [place] electric, gas, oil, or water company threatened [...] in a prison (including now)? No 10/30/2023 Personal Safety Answer Date Recorded Have you ever been in or are you currently in a harmful physical or emotional relationship or is someone making you feel afraid or unsafe? Denies 10/30/2023 Comments No Sex and Gender Information Value Date Recorded Sex Assigned at Not on file Legal Sex Female 9:03 AM HEART SURGEON Gender Identity Female 02/08/2020 6:39 PM CDT Sexual Orientation Not on file documented as of this encounter Miscellaneous Notes * Telephone Encounter - Adelina Mendoza MA - 2023 12:05 PM CDT Pt daughter called in stating that the pt has gotten out of the hospital and they changed her Respiridone down to 1mg. Pt needs a refill for risperiDONE (RisperDAL) 1 mg tablet and benztropine (COGENTIN) 1 mg tablet Pt also stated that the hospital told her that only her Psych doctor could refill these other two medications that she needs which is ramelteon (ROZEREM) 8 mg tablet and OLANZapine (ZyPREXA) 2.5 mg tablet . Needs it sent to [id number] - [place], [place] - [address] [address] [address] , [facility] [id number] documented in this encounter Plan of Treatment Upcoming Encounters Date Type Department Care Team (Latest Contact Info) Description 07/13/2024 9:00 AM HEART SURGEON Hospital Encounter [facility] [address] [place] [address] Jaya Grier MD [address] [facility] [address] [place] [address] 07/13/2024 9:00 AM HEART SURGEON - 07/13/2024 9:30 AM HEART SURGEON Surgery [facility] [address] [place] [address] Jaya Grier MD [address] [facility] [place] [address] ESOPHAGOGASTRODUODENOSCOPY Scheduled Procedures Name Priority Associated Diagnoses Date/Ti me ESOPHAGOGASTRODUODENOSCOPY Anemia, unspecified type Gastritis without bleeding, unspecified chronicity, unspecified gastritis type 07/13/2024 9:00 AM HEART SURGEON COLONOSCOPY Iron deficiency anemia due to chronic blood loss documented as of this encounter Visit Diagnoses Not on filedocumented in this encounter Additional Health Concerns Infection Onset Date Last Indicated Resolved Time COVID: Suspected 10/29/2023 10/30/2023 10/30/2023 10:59 AM CDT documented as of this encounter Care Teams Used Car Salesperson Relationship Specialty Start Date End Date Cherelle Corcoran MD PCP - General Family Medicine 08/30/19 Mark Queen MD Consulting Physician Infectious Diseases 01/10/20 Rudolph Welch MD [address] [facility] [place] [address] Consulting Physician Infectious Diseases 12/05/22 Markie Ryan MD [address] [facility] [place] [address] Consulting Physician Nephrology 12/05/22 Dulce Vega RN [address] [place] [address] [address] [place] [address] Tool Checker 10/07/23 05/03/24 [place] [address] [address] Consulting Physician Nephrology 10/22/23 documented as of this encounter
--- OUTSIDE RECORDS SUMMARY | 2024-07-04 04:06 | XMS_ITS | Encounter Summary ---
Author Organization [facility] Healthcare Address [address] [place] [address] Care Team Providers Care Marinator Name Role Phone Cherelle Corcoran MD Primary Care Pro vider Mark Queen MD Unavailable [phone] Rudolph Welch MD Unavailable Markie Ryan MD Unavailable Dulce Vega RN Unavailable [phone] Jimbo Strauss MD Unavailable [phone] Encounter Details Date Type Department Care Team (Late st Contact Info) Description 10/22/2023 Telephone [facility] Primary Care at [address] [phone] Cherelle Corcoran MD [address] [place] [id number] Social History Tobacco Use Types Packs/Day Years Used Date Smoking Tobacco: Never Smokeless Tobacco: Never Alcohol Use Standard Drinks/Week Comments Not Currently 0 (1 standard drink = 0.6 oz pur e alcohol) [facility] Utilities Answer Date Recorded In the past 12 months has th e electric, gas, oil, or water [employer] threatened to shut off services in your [...] often do you attend chur ch or pentecostal services? 1 to 4 times per year [...] slept in a [facility] (including now)? No 10/08/2023 Personal Safety Answer Date Recorded Have you ever been in or are you currently in a harmful physical or emotional relationship or is someone making you feel afraid or unsafe? Denies 10/07/2023 Comments No Sex and Gender Information Value Date Recorded Sex Assigned at Not on file Legal Sex Female 9:03 AM SENIOR CREDIT ANALYST Gender Identity Female 02/08/2020 6:39 PM CDT Sexual Orientation Not on file documented as of this encounter Miscellaneous Notes * Telephone Encounter - Valeria Jackson - 10/22/2023 4:32 PM CDT Contacted patient regarding scheduling her appointment with Dr Corcoran or Nadege Galicia following her recent hospital viist. Per daughter, patient is being dicharged today, but is scheduled to be transferred to a rehab facility. She was advised to call the office to schedule a follow-up appointment once she has returned home. She verbally understood./ts documented in this encounter Plan of Treatment Upcoming Encounters Date Type Department Care Team (Latest Contact Info) Description 07/13/2024 9:00 AM SENIOR CREDIT ANALYST Hospital Encounter [facility] [address] [place] [id number] Jaya Grier MD [address] [place] [address] DR GAINES [address] [place] [phone] 07/13/2024 9:00 AM SENIOR CREDIT ANALYST - 07/13/2024 9:30 AM SENIOR CREDIT ANALYST Surgery [facility] [address] [place] [phone] Jaya Grier MD [address] [facility] [address] [place] [address] ESOPHAGOGASTRODUODENOSCOPY Scheduled Procedures Name Priority Associated Diagnoses Date/Ti sd ESOPHAGOGASTRODUODENOSCOPY Anemia, unspecified type Gastritis without bleeding, unspecified chronicity, unspecified gastritis type 07/13/2024 9:00 AM SENIOR CREDIT ANALYST COLONOSCOPY Iron deficiency anemia due to chronic blood loss documented as of this encounter Visit Diagnoses Not on filedocumented in this encounter Care Teams Marinator Relationship Specialty Start Date End Date Cherelle Corcoran MD PCP - General Family Medicine 08/30/19 Mark Queen MD Consulting Physician Infectious Diseases 01/10/20 Rudolph Welch MD [address] [facility] [address] [place] [address] Consulting Physician Infectious Diseases 12/05/22 Markie Ryan MD [address] [facility] [address] [place] [address] Consulting Physician Nephrology 12/05/22 Dulce Vega RN [address] [place] [address] [address] [place] [address] Branch Billing Payroll Clerk 10/07/23 05/03/24 [place] [address] [facility] [address] [place] [address] Consulting Physician Nephrology 10/22/23 documented as of this encounter
--- OUTSIDE RECORDS SUMMARY | 2024-07-04 04:06 | XMS_ITS | Encounter Summary ---
Author Organization [facility] Healthcare Address [address] [place] [address] Care Team Providers Care Drilling Inspector Name Role Phone Cherelle Corcoran MD Primary Care Pro vider Mark Queen MD Unavailable [phone] Rudolph Welch MD Unavailable [phone] Markie Ryan MD Unavailable Dulce Vega RN Unavailable [phone] Jimbo Strauss MD Unavailable [phone] Encounter Details Date Type Department Care Team (Late st Contact Info) Description 10/27/2023 Telephone [facility] Primary Care at [address] [phone] Cherelle Corcoran MD [address] [place] [phone] Social History Tobacco Use Types Packs/Day Years Used Date Smoking Tobacco: Never Smokeless Tobacco: Never Alcohol Use Standard Drinks/Week Comments Not Currently 0 (1 standard drink = 0.6 oz pur e alcohol) [facility] Utilities Answer Date Recorded In the past 12 months has th e electric, gas, oil, or water [employer] threatened to shut off services in your [...] you attend chur ch or bahai services? 1 to 4 times per year [...] in a group home (including now)? No 10/08/2023 Personal Safety Answer Date Recorded Have you ever been in or are you currently in a harmful physical or emotional relationship or is someone making you feel afraid or unsafe? Denies 10/07/2023 Comments No Sex and Gender Information Value Date Recorded Sex Assigned at Not on file Legal Sex Female 9:03 AM FORGE HELPER Gender Identity Female 02/08/2020 6:39 PM CDT Sexual Orientation Not on file documented as of this encounter Miscellaneous Notes * Telephone Encounter - Nadege Galicia NP - 10/27/2023 12:58 PM CDT Noted, thank you! * Telephone Encounter - Anshu Platt MA - 10/27/2023 10:59 AM CDT DAUGHER/ PT RESPONSE: Correction regarding dialysis: Pt receives on Thu, Sat now set up as out patient at . Daughter stated mother is going to [facility] as out pt for dialysis. Daughter stated will go to ER to have checked out. I also advised [facility] to [facility] to inform them of situation to make them aware as pt's appointment is scheduled for 1:00 this afternoon. Also, advised daughter to inform ER of the above for their advisement if pt misses dialysis. Informed her I would make Nadege aware. Daughter expressed un derstanding. * Telephone Encounter - Nadege Galicia NP - 10/27/2023 10:51 AM CDT Please advise to go to ER for evaluation of port, need to be sure it is patent and can be used for dialysis * Telephone Encounter - Anshu Platt MA - 10/27/2023 8:24 AM CDT PLEASE ADVISE: See prior note. * Telephone Encounter - Anshu Platt MA - 10/27/2023 8:17 AM CDT Called daughter concerning MyChart message concerning port. Mother is supposed to have dialysis ,thu, . Was in to get PT and OT done in facility. Pt pulled [facility] on[facility] due to unsatisfactory conditions. Mother was admitted on . Mother pulled plastic from over the top of port; However, port is still intact. Daughter states is wanting to get her into [facility] in [place]; However, they do not do in house dialysis. Wanted to switch to home PT and OT. PT REQUESTS: 1) Home order for nurse to perform port care and to verify is intact and safe. 2) Home order for PT and OT documented in this encounter Plan of Treatment Upcoming Encounters Date Type Department Care Team (Latest Contact Info) Description 07/13/2024 9:00 AM FORGE HELPER Hospital Encounter [facility] GI Lab [address] [place] [address] Jaya Grier MD [address] [place] [id number] 07/13/2024 9:00 AM FORGE HELPER - 07/13/2024 9:30 AM FORGE HELPER Surgery [facility] Lab [address] [place] [address] Jaya Grier MD [address] [place] [address] [address] [place] [address] ESOPHAGOGASTRODUODENOSCOPY Scheduled Procedures Name Priority Associated Diagnoses Date/Ti me ESOPHAGOGASTRODUODENOSCOPY Anemia, unspecified type Gastritis without bleeding, unspecified chronicity, unspecified gastritis type 07/13/2024 9:00 AM FORGE HELPER COLONOSCOPY Iron deficiency anemia due to chronic blood loss documented as of this encounter Visit Diagnoses Not on filedocumented in this encounter Care Teams Drilling Inspector Relationship Specialty Start Date End Date Cherelle Corcoran MD PCP - General Family Medicine 08/30/19 Mark Queen MD Consulting Physician Infectious Diseases 01/10/20 Rudolph Welch MD [address] [facility] [address] [place] [address] Consulting Physician Infectious Diseases 12/05/22 Markie Ryan MD [address] [facility] [address] [place] [address] Consulting Physician Nephrology 12/05/22 Dulce Veag RN [address] [place] [address] [address] [place] [address] Wire Walker 10/07/23 05/03/24 [place] [id number] [address] [facility] [address] [place] [address] Consulting Physician Nephrology 10/22/23 documented as of this encounter
--- OUTSIDE RECORDS SUMMARY | 2024-07-04 04:06 | XMS_ITS | Encounter Summary ---
Author Organization [facility] Healthcare Address [address] [place] [address] Care Team Providers Care Cover Operator Name Role Phone Duane Corcoran MD Primary Care Pro vider Mark Queen MD Unavailable [phone] Rudolph Welch MD Unavailable Markie Ryan MD Unavailable [phone] Dulce Vega RN Unavailable [phone] Jimbo Strauss MD Unavailable [phone] Reason for Visit * Reason Comments Tremors * Auth/Cert (Routine) Specialty Diagnoses / Procedures Referred By Contac t Referred To Contact Diagnoses Altered mental status, unspecified altered mental status type Procedures na Referral ID Status Reason Start Date Expiration Date Visits Re quested Visits Authorized [id number] 1 1 Encounter Details Date Type Department Care Team (Latest Contact Info) Description 10/29/2023 5:39 PM CDT - 11/03/2023 6:56 PM CDT Hospital Encounter [facility] 5 Med Surg [address] [place] [address] Robert Betts MD [address] [place] [address] Luciano Jenkins MD [address] [place] [address] [place] [address] Aylin Kauffman MD [address] [place] [address] [place] [address] Charlotte Bird MD [address] [place] [address] [place] [address] Johnathan Rae MD [address] [place] [address] [place] [address] Altered mental status, unspecified altered mental status type (Primary Dx); ESRD (end stage renal disease) on dialysis ([facility]) [N18.6, Z99.2]; ESRD on hemodialysis ([facility]) ([facility]); Anemia of renal disease Discharge Disposition: Discharge to [facility] Social History Tobacco Use Types Packs/Day Years Used Date Smoking Tobacco: Never Smokeless Tobacco: Never Alcohol Use Standard Drinks/Week Comments Not Currently 0 (1 standard drink = 0.6 oz pur e alcohol) [facility] Utilities Answer Date Recorded In the past 12 months has [employer], [employer], oil, or water [employer] threatened to shut off services in [...] in a half-way (including now)? No 10/30/2023 Personal Safety Answer Date Recorded Have you ever been in or are you currently in a harmful physical or emotional relationship or is someone making you feel afraid or unsafe? Denies 10/30/2023 Comments No Sex and Gender Information Value Date Recorded Sex Assigned at Not on file Legal Sex Female 9:03 AM [employer] Gender Identity Female 02/08/2020 6:39 PM CDT Sexual Orientation Not on file documented as of this encounter Last Filed Vital Signs Vital Sign Reading Time Taken Comments Blood Pressure 159/65 11/03/2023 12:05 PM CDT Pulse 63 11/03/2023 12:05 PM CDT Temperature 36.5 ??C (97.7 ??F) 11/03/2023 12:05 PM C DT Respiratory Rate 17 11/03/2023 12:05 PM CDT Oxygen Saturation 100% 11/03/2023 11:30 AM CDT Inhaled Oxygen Concentration - - Weight 61.8 kg (136 lb 3.9 oz) 10/30/2023 4:20 A M CDT Height 157.5 cm (5' 2 ) 10/30/2023 4:20 AM CDT Body Mass Index 24.92 10/30/2023 4:20 AM CDT documented in this encounter Discharge Summaries * Johnathan Rae MD - 11/03/2023 2:28 PM CDT Inpatient Discharge Summary Patient Name - Sixto Chakraborty Patient Age - 73 yrs Patient - [id number] [facility] - [id number] Document Creation Date: 11/03/2023 Admitting Provider, MD: Aylin Kauffman MD Discharge Provider, MD: Johnathan Rae MD Primary Care Physician at Discharge: Duaen Corcoran MD [phone] Admission Date: 10/29/2023 Discharge Date/time: 11/03/2023 Admission Location: [facility] LOS - LOS: 4 days DETAILS OF HOSPITAL STAY Hospital Problems/Diagnoses Principal Problem: Altered mental status, unspecified altered mental status type Active Problems: AMS (altered mental status) ESRD (end stage renal disease) on dialysis ([facility]) Anemia of renal disease ESRD on hemodialysis (CMS/HCC) (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 Presented with altered mental status and episode of hypotension during dialysis. 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 MRI done today suggestive of small subacute infarct in right temporal lobe On aspirin 81 mg daily, atorvastatin 40 mg daily Carotid Doppler with less than 50% proximal ICA stenosis Neurology consult: Discussed with Dr. Buckley EEG Generalized slowing suggests diffuse cerebral dysfunction, as can be seen encephalopathy due tovarious etiologies. No focal slowing no seizure like activity was observed. # history of schizophrenia: # history of possible drug-induced parkinsonism symptoms -psychiatry on consult: Recommend restarting Risperdal 1mg nightly for mood. Restart Cogentin at 1mg nightly for tremor symptoms. Will restart at lower dose as Cogentin can contribute to confusion. May consider increasing back to 1.5mg qHS if needed (patient's home dose). Recommend Rozerem 8mg nightly prn for sleep. On risperidone 1 mg Q nightly and benztropine 1 q.day # leukocytosis-resolved - Patient remains afebrile with no new complaint - CXR on 10/28 with no evidence of pneumonia/infection -UA on 10/28 with no evidence of UTI -uptrending WBC Blood culture NGTD # ESRD on hemodialysis: -on dialysis Thursday//Thursday -nephrology on consult appreciate recommendations # Diabetes mellitus with hyperglycemia/diabetic nephropathy - Accu-Chek with dialysis # hypertension #labile BP Possible underlying autonomic dysfunction Continue small dose of metoprolol tartrate 6.25 mg b.i.d. #anemia of chronic disease Stable hemoglobin Patient stable and tolerating dialysis at time of discharge. She will be discharging to a SNF for acute rehabilitation. She will need to follow up with her primary care provider within a week of discharge. Discharge Details Physical Exam at Discharge: Discharge Condition: stable Pulse: 63 Resp: 17 BP: 159/65 Temp: 36.5 ??C (97.7 ??F) Weight: 61.8 kg (136 lb 3.9 oz) Discharge Disposition: Discharge to SNF Code Status at Discharge: Full Code Active Issues & Recommended Plan for Follow-up: PCP Allergies: Patient has no known allergies. Discharge Medications: Your medication list START taking these medications Instructions Last Dose Given Next Dose Due aspirin 81 mg enteric coated tablet 81 mg, oral, Daily CHANGE how you take these medications Instructions Last Dose Given Next Dose Due atorvastatin 40 mg tablet Commonly known as: LIPITOR What changed: medication strength how much to take 40 mg, oral, Nightly benztropine 1 mg tablet Commonly known as: COGENTIN What changed: how much to take 1 mg, oral, Nightly CONTINUE taking these medications Instructions Last Dose Given Next Dose Due acetaminophen 325 mg tablet Commonly known as: TYLENOL 650 mg, oral, Every 6 hours PRN calcium acetate(phosphat bind) 667 mg capsule Doctor's comments: Patient requests 90 days supply Commonly known as: PHOSLO TAKE 1 CAPSULE(667 MG) BY MOUTH THREE TIMES DAILY WITH MEALS famotidine 10 mg tablet Commonly known as: PEPCID 10 mg, oral, Daily ferrous sulfate 325 mg (65 mg of elemental iron) tablet 65 mg of elemental iron, oral, 2 times daily flash glucose scanning reader [facility] Use Madhav 3 reader to scan Madhav 3 sensor fluticasone propionate 50 mcg/actuation nasal spray Commonly known as: FLONASE 2 sprays, each nostril, Daily FreeStyle Madhav 2 Sensor kit Doctor's comments: Type 2 diabetic, on 2 insulin Generic drug: flash glucose sensor Use to continually monitor glucose, change every 14 days FreeStyle Madhav 3 Sensor device Generic drug: blood-glucose sensor Use for continuous glucose monitoring. Change sensor every 14 days insulin glargine 100 unit/mL (3 mL) pen for injection Doctor's comments: May substitute alternate covered basal insulin in pen. Commonly known as: LANTUS, BASAGLAR, SEMGLEE 15 Units, subcutaneous, Nightly insulin lispro 100 unit/mL vial for injection Commonly known as: HumaLOG, ADMELOG 4 Units, subcutaneous, 3 times daily before meals, Gets 4 units at baseline then 1 unit for every 50 over 150 lidocaine 4 % adhesive patch,medicated Commonly known as: ASPERCREME 1 patch, transdermal, Daily PRN, to lower back metoprolol tartrate 25 mg immediate release tablet Doctor's comments: Patient requests 90 days supply Commonly known as: LOPRESSOR TAKE 1/4 TABLET(6.25 MG) BY MOUTH TWICE DAILY OLANZapine 2.5 mg tablet Commonly known as: ZyPREXA 2.5 mg, oral, 2 times daily PRN pen needle, diabetic 32 gauge x 5/32 needle 1 Units, miscellaneous, 4 times daily polyethylene glycol 17 gram/dose bulk powder Commonly known as: MIRALAX 17 g, oral, Daily PRN ramelteon 8 mg tablet Commonly known as: ROZEREM 8 mg, oral, Nightly PRN risperiDONE 1 mg tablet Commonly known as: RisperDAL 1 mg, oral, Nightly Where to Get Your Medications These medications were sent to [id number] - [place], [place] - [address], [place] [address] aspirin 81 mg enteric coated tablet atorvastatin 40 mg tablet benztropine 1 mg tablet Time Spent in Discharge Process: I have spent 31 minutes on discharge planning activities. Test Results Pending at Discharge (If Blank, None Found): Pending Labs Order Current Status Troponin T high-sensitivity series (baseline, 2hr, 4hr, 6hr) In process Blood culture Blood Preliminary result Blood culture Blood Preliminary result Operative Procedures Performed (If Blank, None Found): Outpatient Follow-Up: Future Appointments Date Time Provider Department Center 11/04/2023 3:30 PM Dulce Luis AUD [facility] 11/04/2023 4:00 PM Brigid Nolasco NP CLN [facility] 11/10/2023 4:15 PM Duane Corcoran MD PCP FM 210 PC 12/02/2023 3:00 PM Adryan Swenson MD [facility] PSY Specialty 12/07/2023 4:40 PM Smith Gibbs MD EML BW4 HEATH IM EML 12/31/2023 2:45 PM Santo Vail MD [facility] Specialty Contact Information for Follow-ups Duane Corcoran MD Specialty: Family Medicine [address] [place] [address] Next Steps: Follow up Comments: Follow up with established provider: 1 week Duane Corcoran MD Questions: To provider: DUANE CORCORAN Please schedule an appointment with the following provider(s): Duane Corcoran MD [address] [place] [address] ANCILLARY INFORMATION Other Procedures & Diagnostic Tests: EEG Result Date: 10/31/2023 Wilner Buckley MD 10/31/2023 1:25 PM Reason for exam: passing out episodes Technical: This is a digitally recorded electroencephalogram. It was just over 32 minutes long. The [id number] electrode placement system is used for scalp [...] closure. Intermittently seen delta range slowing bilaterally. Descr iption: No focal slowing was seen. No seizure [...] observed. Correlation with clinical findings is needed. Transthoracic Echo (TTE) Complete W Doppler/CF Result Date: 10/30/2023 Adult Echocardiogram + + :Name: SIXTO CHAKRABORTY Study Date: 10/30/2023 Status: [facility] : : Patient Location: [address]^[id number]^MHeight: 62 in : : Weight: 136 lbBP: 154/62 mmHg: :: 1950 Gender: Female BSA: 1.6 m2 : :Reason For Study: TIA, initial exam : :Ordering Physician: : :LUCIANO JENKINS : : : :Performed By: Juju : :SHEA Cheema : + + Procedure A two-dimensional transthoracic echocardiogram with color flow and Doppler was performed. A saline contrast injection was performed to assess for cardiac shunting. Left Ventricle The left ventricle is normal in size. There is mild concentric left ventricular hypertrophy. Ejection Fraction = 60-65%. Left ventricular systolic function is normal. Right Ventricle The right ventricle is normal in size and function. Atria The left atrial size is normal. Right atrial size is normal. A bubble study shows no evidence of intracardiac loymo-ny-vnir shunting, i.e. no patent foramen ovale (PFO). Mitral Valve There is no mitral valve stenosis. There is trace mitral regurgitation. Tricuspid Valve There is trace tricuspid regurgitation. Right ventricular systolic pressure is normal.Aortic Valve The aortic valve opens well. The aortic valve is trileaflet. No aortic stenosis . Trace aortic regurgitation. Pulmonic Valve Trace pulmonic valvular regurgitation. Great Vessels The aortic root is normal size. IVC appears normal in size. IVC collapses normally with inspiration. Normal right heart pressures. Pericardium Trace pericardial effusion. Diastology Grade I diastolic dysfuncti on, (abnormal relaxation pattern). Interpretation Summary The left ventricle is normal in size. There is mild concentric left ventricular hypertrophy. Ejection Fraction = 60-65%. Left ventricular systolic function is normal. Grade I diastolic dysfunction, (abnormal relaxation pattern). A bubble study shows no evidence of intracardiac iaege-sn-ervt shunting, i.e. no patent foramen ovale (PFO). Trace aortic regurgitation. + + :Measurements with Normals : : (0.6-1.2 LVIDd: (3.5-5.7 Ao root diam: (2.0-3.7 : :IVSd: 1.4 cmcm) 3.6 cm cm) 2.5 cm cm) : :LVPWd: (0.6-1.1 LVIDs: (3.1-4.6 LA dimension: (1.9-4.0 : :1.3 cm cm) 1.7 cm cm) 3.9 cm cm) : + + MMode/2D Measurements & Calculations FS: 51.7 % Ao root area: LVOT diam: 1.9 cm LVLd ap4: 8.2 cm EDV(Teich): 53.7 ml 4.9 cm2 LVOT area: EDV(MOD-sp4): ESV(Teich): 8.8 ml 2.8 cm2 52.4 ml LVLs ap4:6.5 cm ESV(MOD-sp4): 19.9 ml EF(MOD- sp4): 62.0 % SV(MOD-sp4): EF (BP): 62.2 % 32.5 ml Doppler Measurements & Calculations MV A dur:0.12 sec MV V2 max: MV dec time: Ao V2 max: MV E max leonard: 110.0 cm/sec 0.24 sec 158.0 cm/sec 88.3 cm/sec MV max PG: Ao max PG: MV A max leonard: 4.8 mmHg 10.0 mmHg 101.0 cm/sec MV V2 mean: Ao V2 mean: MV E/A: 0.87 66.3 cm/sec 111.0 cm/sec MV mean PG: Ao mean P.0 mmHg 5.0 mmHg MV V2 VTI: 32.9 cm AoV2 VTI: 36.6 cm MVA(VTI): 2.2 cm2 ALEXEY(I,D): 2.0 cm2 ALEXEY(V,D): 2.0 cm2 LV V1 max PG: SV(LVOT): 72.6 ml TV V2 max: PA V2 max: 5.2 mmHg 49.0 cm/sec 142.0 cm/sec LV V1 mean PG: TV max PG: PA max P.1 mmHg 2.0 mmHg 0.96 mmHg LV V1 max: 114.0 cm/sec LV V1 mean: 72.5 cm/sec LV V1 VTI: 25.6 cm PI end-d leonard: RV V1 max: TR max leonard: RAP systole: 70.6 cm/sec 117.0 cm/sec 169.0cm/sec 3.0 mmHg TR max P.4 mmHg RVSP(TR): 14.4 mmHg Pulm Sys Leonard: 70.3 cm/sec Pulm De Los Santos Leonard: 43.2 cm/sec Pulm A Revs Leonard: 32.5 cm/sec Pulm A Revs Dur: 0.10 sec Pulm S/D: 1.6 Electronically signed by: Portillo Hernandez MD 10/30/2023 10:31 AM MRI Brain WO Contrast Result Date: 10/30/2023 EXAM DESCRIPTION: MRI BRAIN WO CONTRAST REASON [...] No masses. Globes normal. PARANASAL SINUSES AND MASTOIDS:There are bilateral mastoid effusions . Mild ethmoid [...] signed by James Javier M.D. MZ: VALENTINA Aguilar: 10/30/2023 8:29 AM Report ID: [id number] Reading Location: [id number] CT Head WO Contrast Result Date: 10/29/2023 EXAM DESCRIPTION: CT HEAD WO CONTRAST REASON FOR STUDY: Mental status change, unknown cause TECHNIQUE: Axial images acquired through the brain without intravenous contrast. Images stored on PACS. Automated exposure control was used as a dose optimization technique for this examination. COMPARISON: 10/11/2023. FINDINGS: BRAIN: Ventricles, cisterns and sulci are symmetric and normal in size and configuration. There are moderate confluent and patchy areas of hypodensity in the periventricular, subcortical and deep white matter as evidence for chronic microvascular angiopathy, similar to prior exam. No intracranial hemorrhage is evident. EXTRA-AXIAL SPACES: No fluid collections. No mass effect. CALVARIUM: Appears intact. Hyperostosis frontalis interna incidentally noted. SINUSES/MASTOIDS: There is a large right mastoid effusion and small to moderate left mastoid effusion, similar to prior exam. ORBITS: No significant abnormality. OTHER: No other significant abnormality. IMPRESSION: No acute intracranial findings. Moderate chronic microvascular angiopathy, similar to prior exam. Large right mastoid effusion and small to moderate left mastoid effusion, similar to prior exam. THIS IS AN ELECTRONICALLY VERIFIED FINAL REPORT 10/29/2023 8:34 PM - Electronically signed by Larry Vail M.D., D.O. Larry Vail M.D., D.O. MW: KLEVER Report ID: [id number] Reading Location: [id number] XR Chest 1 Vw Portable Result Date: 10/29/2023 EXAM DESCRIPTION: XR CHEST 1 VIEW REASON FOR STUDY: general weakness Pt brought in by EMS from dialysis for tremors. TECHNIQUE: Single radiographic view(s) of the chest. COMPARISON: 10/10/2023 FINDINGS: LUNGS: No focal consolidation or definite pleural effusion. No pneumothorax. HEART/MEDIASTINUM: Stable cardiomediastinal contour. LINES/TUBES: Right IJ central venous catheter with the tip in the distal SVC. BONES: No acute osseous abnormality. IMPRESSION: No acute cardiopulmonary abnormality. THIS IS AN ELECTRONICALLY VERIFIED FINAL REPORT 10/29/2023 6:21 PM - Electronically signed by Navneet Enriquez M.D. AG: TON Report ID: [id number] ReadingLocation: [id number] Recent Labs: Recent Labs Lab Units 11/03/23 0636 11/02/23 0443 11/01/23 0506 WBC K/cumm 10.2* 9.4 13.4* HEMOGLOBIN g/dL 8.3* 8.7* 8.8* HEMATOCRIT % 26.4* 27.2* 27.3* PLATELETS K/cumm 282 250 262 Recent Labs Lab Units 11/03/23 0636 11/02/2344211/01/23 0506 WBC K/cumm 10.2* 9.4 13.4* HEMOGLOBIN g/dL 8.3* 8.7* 8.8* HEMATOCRIT % 26.4* 27.2* 27.3* PLATELETS K/cumm 282 250 262 NEUTROS PCT % 57.2 64.2 68.5 LYMPHS PCT % 32.4 26.2 23.6 MONOS PCT % 7.0 6.8 5.8 EOS PCT % 2.8 2.3 1.5 Recent Labs Lab Units 11/03/23 1153 11/03/23 0823 11/03/23 0636 11/02/23 1614 11/02/23 0443 11/01/23 0816 11/01/23 0506 10/30/23 0939 10/30/23 0446 10/29/23 2343 10/29/23 1826 SODIUM mmol/L -- -- 144 -- 140 -- 138 < > 141 -- 135 POTASSIUM PLASMA mmol/L -- -- 4.6 -- 4.6 -- 4.1 < > 4.3 -- 3.9 CHLORIDE mmol/L -- -- 110 -- 106 -- 102 < > 103 -- 97 CO2 mmol/L -- -- 21* -- 22 -- 24 < > 24 -- 25 BUN SERUM mg/dL -- -- 68* -- 61* -- 42* < > 32* -- 21 CREATININE mg/dL -- -- 5.00* -- 5.20* -- 4.10* < > 3.00* -- 2.10* [id number] mL/min/1.73 m2 -- -- 9* -- 8* -- 11* < > 16* -- 24* GLUCOSE mg/dL -- -- 98 -- 127 -- 177 < > 175 -- 129 POC GLUCOSE MONITOR mg/dL 103 < > -- < > -- < > -- < > -- < > -- CALCIUM mg/dL -- -- 8.8 -- 8.7 -- 8.4* < > 8.6 -- 8.4* ALBUMIN g/dL -- -- -- -- -- -- -- -- 3.2* -- 3.3* PHOSPHORUS PLASMA mg/dL -- -- -- -- -- -- -- -- 4.4 -- -- < > = values in this interval not displayed. Recent Labs Lab Units 11/03/23 1153 11/03/23 0823 11/03/23 0636 11/02/23 1614 11/02/23 0443 11/01/23 0816 11/01/23 0506 10/30/23 0939 10/30/23 0446 10/29/23 2343 10/29/23 1826 SODIUM mmol/L -- -- 144 -- 140 -- 138 < > 141 -- 135 POTASSIUM PLASMA mmol/L -- -- 4.6 -- 4.6 -- 4.1 < > 4.3 -- 3.9 CHLORIDE mmol/L -- -- 110 -- 106 -- 102 < > 103 -- 97 CO2 mmol/L -- -- 21* -- 22 -- 24 < > 24 -- 25 ANIONGAP mmol/L -- -- 13 -- 12 -- 12 < > 14 -- 13 GLUCOSE mg/dL -- -- 98 -- 127 -- 177 < > 175 -- 129 POC GLUCOSE MONITOR mg/dL 103 105 -- < > -- < > -- < > -- < > -- BUN SERUM mg/dL -- -- 68* -- 61* -- 42* < > 32* -- 21 CREATININE mg/dL -- -- 5.00* -- 5.20* -- 4.10* < > 3.00* -- 2.10* CALCIUM mg/dL -- -- 8.8 -- 8.7 -- 8.4* < > 8.6 -- 8.4* ALBUMIN g/dL -- -- -- -- -- -- -- -- 3.2* -- 3.3* ALK PHOS Units/L -- -- -- -- -- -- -- -- 162* -- 160* ALT Units/L -- -- -- -- -- -- -- -- 61* -- 75* AST Units/L -- -- -- -- -- -- -- -- 17 -- 28 BILIRUBIN TOTAL mg/dL -- -- -- -- -- -- -- -- 0.2 -- 0.2 < > = values in this interval not displayed. Recent Labs Lab Units 10/30/23 0446 10/29/23 1826 ALK PHOS Units/L 162* 160* BILIRUBIN TOTAL mg/dL 0.2 0.2 TOTAL PROTEIN g/dL 6.8 7.1 ALT Units/L 61* 75* AST Units/L 17 28 Recent Labs Lab Units 10/30/23 0446 MAGNESIUM mg/dL 1.7 Lab Results Component Value Date GLUCOSE 103 11/03/2023 GLUCOSE 105 11/03/2023 GLUCOSE 98 11/03/2023 Implant: Implants Type Not Specified [employer] Duramax Vascpak Safesheath D-Pro 15.5fr 24cm Kit Catheter [id number] - [id number] - Implanted Inventory item: [employer] Duramax Vascpak Safesheath D-pro 15.5fr 24cm Kit Catheter [id number] Model/Cat number: [id number] [employer]house In[employer] Selector: [employer] Lot number: [id number] As of 10/15/2023 Status: Implanted General Precautions (If Blank, None Found): Isolation Status: No active isolations Nutritional Status and in-house recommendations: Dietary Orders (From admission, onward) Start Ordered 10/30/23 2100 Bedtime snack At bedtime Comments: If bedtime BG is less than 100mg/dl, give patient a 15 gram carbohydrate snack. 10/29/23224510/29/232244 Adult Diet Restricted; Cardiac (No caffeine, Low Na, Low Chol); 5 CHO/Meal; Yes, patient is receiving insulin; Renal Dialysis; 80 Grams (Pro); 1 Gram (Phos); 2 Grams (K+); 2 Grams (Na) Diet effective now Question Answer Comment (MHB/MHE) Diet type Restricted Fat / Sodium Restriction: Cardiac (No caffeine, Low Na, Low Chol) Diabetic: 5 CHO/Meal Patient receiving insulin: Yes, patient is receiving insulin Renal: Renal Dialysis Protein: 80 Grams (Pro) Phosphorus: 1 Gram (Phos) Potassium: 2 Grams (K+) Sodium: 2 Grams (Na) 10/29/23 2244 Anticoagulation Indication: INR: 10/15/2023: 1.05 Warfarin Administrations (last 168 hours) None Oxygen Status: O2 Therapy for the past 12 hrs: O2 Therapy 11/03/23 1205 None (Room air) 11/03/23 0825 None (Room air) 11/03/23 0347 None (Room air) Wound Care Instructions Active LDAs (If Blank, None Found): Peripheral IV 10/29/23 20 G Left Antecubital (Active) Placement Date: 10/29/23 Size (Gauge): 20 G Location Orientation: Left Location: Antecubital Patient Emergency Contact: Primary Emergency Contact: Areli Gayle, Immunization Status at Discharge Immunization History Administered Date(s) Administered Influenza Nasal, Unspecified 04/17/2017 Influenza, Quadrivalent, High Dose, Preservative Free, Intrr 04/02/2020, 03/07/2021, 04/01/2022, 08/07/2022 Influenza, Trivalent, Adjuvanted, Intramuscular 04/06/2019 Influenza, Trivalent, Intramuscular 04/17/2017 Pfizer SARS-CoV-2 Monovalent Vaccination (12+ Yrs) PURPLE 09/22/2020, 10/13/2020, 06/11/2021 Pneumococcal Conjugate PCV 13 03/31/2017 Pneumococcal Polysaccharide PPV23 01/20/2019 Johnathan Rae MD documented in this encounter Discharge Instructions * Discharge Instr - Diet* Zian Montilla RD - 10/30/2023 12:57 PM CDT Continue to follow a renal diet that is low in sodium, potassium, and phosphorus. Avoid/limit foodssuch as fast food items, fried/breaded foods, canned goods, deli meats, gravies/sauces, bananas, tomatoes, oranges, milk, dark annie and chocolate. Lane juice, citrus juices, and tomato juice are also high in potassium. Do not use salt substitutes, as they may contain potassium. Drink Nepro 1-2 times daily as able to increase calories and protein intake. If interested in outpatient nutrition counseling, ask your doctor for referral then call [phone] to schedule an appointment. Call [phone] to speak with a dietitian about any diet related concerns. Additional resources available onl ine from the [employer] at www.kidney.org/nutrition * Attachments The following attachments cannot be sent through Care Everywhere. * Aspirin (By mouth) ([place]) documented in this encounter Medications at Time [...] sensor 1 each 06/30/2023 FreeStyle Madhav 3 [place] misc Use Madhav 3 reader to scan [...] by mouth nightly 30 tablet 11/03/2023 4 calcium acetate,phosphat bind, (PHOSLO) 667 [...] 4 pen needle, diabetic 32 gauge x needleIndications :Type 2 diabetes mellitus with diabetic [...] 10/22/2023 4 documented as of this encounter Ordered Prescriptions Prescription Sig Dispense Quantity Refills Last Filled Start Date End Date aspirin 81 mg enteric coated tablet Take 1 tablet (81 mg total) by mouth daily 30 tablet 11 11/03/2023 4 benztropine (COGENTIN) 1 mg tablet Take 1 tablet (1 mg total) by mouth nightly 30 tablet 11/03/2023 4 atorvastatin (LIPITOR) 40 mg tablet Take 1 tablet (40 mg total) by mouth nightly 30 tablet 11/03/2023 4 documented in this encounter Discharge Disposition Disposition Code Departure Means Destination Comment s Discharge to [facility] ([place], [place]) documented in this encounter Progress Notes * Sera Castaneda, STEPHANIA - 11/03/2023 3:47 PM CDT DISCHARGE TO [facility] Social Work has coordinated discharge plan. Patient has been accepted to [facility]. RN informed to call report and fax orders to numbers listed below. Patient, family etc. are aware and are agreeable to plan. Transportation has been arranged via family. Mode of transport has been discussed with the patient/family, doctors, nurses, and all are agreeable to plan and understand their role to ensure the patient's safe transfer. No further social work intervention is anticipated at this time. Patient/family informed that while medical team will do everything possible for Medicare to pay forthe ambulance there is a chance that Medicare will not pay, as Medicare's criteria for ambulances are often stricter than the medical team. Social work informed patient/family that even if Medicare does pay, it may not cover the full cost of the trip as Medicare is now only covering the cost to nearest available facility. Social work informed patient/family that they will be responsible for the remainder of the bill. Patient/family voiced understanding. Starr Santos [address] [address] Sera Castaneda LCSW 11/03/2023 3:47 PM * Wilner Kruse, FILM WASHER - 11/03/2023 2:51 PM CDT Physical Therapy 11/03/23 1451 PT Last Visit Session Type Treatment PT Received On 11/03/23 Safe Environment Patient found sitting in chair;Arm band checked;Gait belt utilized for all out of bed mobility;Session completed bedside Subjective Agreeable to Therapy Family/Caregiver Present Yes Precautions Precautions Bed/Chair Alarm;Fall risk Pain Assessment Pain Assessment No/denies pain Cognition Arousal/Alertness Alert Orientation Oriented to person;Oriented to place Following Commands Follows one step commands without difficulty Transfer 1 Transfer From 1 Cardiac chair;Sit Transfer Type 1 To and from Transfer to 1 Stand Technique 1 Sit to stand;Stand to sit Transfer Device 1 Wheeled walker Transfer Level of Assistance 1 Contact Guard Assist Trials/Comments 1 Pt did well w/jwn-elotc-trh transfers. Ambulation Functional Ambulation Category 2 Ambulation Yes Ambulation 1 Distance (ft) 1 290 Surface 1 Level tile Device 1 Wheeled walker Assistance 1 Contact Guard Assist Gait: Requires assist with 1 Maintaining balance Gait: Requires verbal cues to 1 Increase step length Gait Deviations 1 Step length - decreased Quality of Gait 1 Good Ambulation Comments 1 Pt ambulated very well w/no LOB. Pt did present w/occasional path deviations to her left, which she was able to correct w/verbal cues. Safe Environment End of Therapy Session Safe Environment End of Therapy Session Patient left in recliner;Chair alarm in place and activated;Call light within reach;Overbed table within reach Recommendation/Plan PT Recommendation/Plan (S) Home with 24 hour supervision;Home Health PT;Home Health OT Progress during current admission Progressing toward goals Multi-Disciplinary Problems (from Physical Therapy) Active Problems Problem: Mobility Start Date: 10/30/23 Goal Start Date Expected End Date End Date LTG - Patient will demonstrate functional mobility with the following level of assist: 10/30/23 11/13/23 -- Goal Details: Pt will transfer and ambulate 50 feet, w walker, cga of 1, Goal met. Fan Mail Clerk Services Utilized: NO Educated the patient to the role of physical therapy, plan of care, goals of therapy, rationale forprogressing mobility. Patient was left with all needs met and equipment intact. Mobility and ADL status posted at bedsideand within medical record. * Johnathan Rae MD - 11/03/2023 11:39 AM CDT .General Medicine Daily Progress Subjective Patient seen and examined at bedside. Patient receiving dialysis morning. No acute overnight events. Past Medical History: Diagnosis Date Anemia Arthritis CHF (congestive heart failure) (CMS/HCC) (HCC) Dementia (HCC) Depression Diabetic neuropathy (HCC) GERD (gastroesophageal reflux disease) HL (hearing loss) Hyperlipidemia Hypertension Movement disorder Osteomyelitis (HCC) Renal disorder Schizophrenia (HCC) Type 2 diabetes mellitus (HCC) Objective Vitals: 24hr Min/Max: Temp Min: 36.5 ??C (97.7 ??F) Max: 36.8 ??C (98.2 ??F) Pulse Min: 60 Max: 72 BP Min: 98/48 Max: 179/91 Resp Min: 18 Max: 20 SpO2 Min: 96 % Max: 100 % Most Recent : Vitals: 11/03/23 1130 BP: 130/60 Pulse: 62 Resp: Temp: 36.5 ??C (97.7 ??F) SpO2: 100% I/O last 2 completed shifts: In: 240 [P.O.:240] Out: - I/O this shift: In: 250 [Other:250] Out: - Physical Exam: .General resting in bed, receiving dialysis Cardiovascular RRR, normal S1 and S2, no murmurs or gallops Respiratory, clear to auscultation bilaterally, no coarse sounds, wheezing, rales, not using accessory muscles, able to speak full sentences Abdominal nondistended, soft, normal bowel sounds, no rebound or guarding Extremities no edema, palpable pulses bilaterally Neurological alert and oriented x2-3, intact cranial nerve, intact sensation all extremities, intact muscle strength, very resting tremors, Lab/Radiology/Diagnostic Review: Laboratory review: Lab results in the last 12 hours: Recent Results (from the past 12 hour(s)) CBC with auto differential Collection Time: 11/03/23 6:36 AM Result Value Ref Range WBC 10.2 (H) 3.8 - 9.9 K/cumm Hgb 8.3 (L) 11.9 - 15.5 g/dL Hct 26.4 (L) 35.6 - 45.5 % Plt 282 150 - 400 K/cumm MPV 10.2 9.1 - 12.3 fL RBC 2.78 (L) 3.90 - 5.20 M/cumm MCV 95.0 81.3 - 96.4 fL MCH 29.9 27.1 - 33.3 pg MCHC 31.4 (L) 32.3 - 35.7 g/dL RDW CV 13.4 11.1 - 14.9 % RDW SD 47.3 35.7 - 48.1 fL NRBC abs 0.00 0.00 - 0.01 K/cumm Basic metabolic panel Collection Time: 11/03/23 6:36 AM Result Value Ref Range Sodium 144 135 - 145 mmol/L Potassium, pl 4.6 3.3 - 4.9 mmol/L Chloride 110 97 - 110 mmol/L CO2 21 (L) 22 - 32 mmol/L Anion gap 13 2 - 15 mmol/L BUN 68 (H) 6 - 25 mg/dL Creatinine 5.00 (H) 0.60 - 1.10 mg/dL Glucose 98 70 - 199 mg/dL Calcium 8.8 8.5 - 10.3 mg/dL Differential, auto Collection Time: 11/03/23 6:36 AM Result Value Ref Range Neutrophil abs 5.8 1.5 - 6.5 K/cumm Imm gran abs 0.0 0.0 - 0.1 K/cumm Lymphocyte abs 3.3 0.8 - 3.3 K/cumm Monocyte abs 0.7 0.2 - 0.8 K/cumm Eosinophil abs 0.3 0.0 - 0.5 K/cumm Basophil abs 0.0 0.0 - 0.1 K/cumm Neutrophil pct 57.2 % Imm gran pct 0.3 % Lymphocyte pct 32.4 % Monocyte pct 7.0 % Eosinophil pct 2.8 % Basophil pct 0.3 % eGFR Collection Time: 11/03/23 6:36 AM Result Value Ref Range eGFR 9 (L) >=60 mL/min/1.73 m2 POCT glucose Collection Time: 11/03/23 8:23 AM Result Value Ref Range Glucose, POC 105 70 - 199 mg/dL Recent Results (from the past 48 hour(s)) POCT glucose Collection Time: 11/01/23 8:40 PM Result Value Ref Range Glucose, POC 151 70 - 199 mg/dL Glucose comment 1 Use This Result CBC with auto differential Collection Time: 11/02/23 4:43 AM Result Value Ref Range WBC 9.4 3.8 - 9.9 K/cumm Hgb 8.7 (L) 11.9 - 15.5 g/dL Hct 27.2 (L) 35.6 - 45.5 % Plt 250 150 - 400 K/cumm MPV 10.5 9.1 - 12.3 fL RBC 2.83 (L) 3.90 - 5.20 M/cumm MCV 96.1 81.3 - 96.4 fL MCH 30.7 27.1 - 33.3 pg MCHC 32.0 (L) 32.3 - 35.7 g/dL RDW CV 13.5 11.1 - 14.9 % RDW SD 47.7 35.7 - 48.1 fL NRBC abs 0.00 0.00 - 0.01 K/cumm Basic metabolic panel Collection Time: 11/02/23 4:43 AM Result Value Ref Range Sodium 140 135 - 145 mmol/L Potassium, pl 4.6 3.3 - 4.9 mmol/L Chloride 106 97 - 110 mmol/L CO2 22 22 - 32 mmol/L Anion gap 12 2 - 15 mmol/L BUN 61 (H) 6 - 25 mg/dL Creatinine 5.20 (H) 0.60 - 1.10 mg/dL Glucose 127 70 - 199 mg/dL Calcium 8.7 8.5 - 10.3 mg/dL Differential, auto Collection Time: 11/02/23 4:43 AM Result Value Ref Range Neutrophil abs 6.1 1.5 - 6.5 K/cumm Imm gran abs 0.0 0.0 - 0.1 K/cumm Lymphocyte abs 2.5 0.8 - 3.3 K/cumm Monocyte abs 0.6 0.2 - 0.8 K/cumm Eosinophil abs 0.2 0.0 - 0.5 K/cumm Basophil abs 0.0 0.0 - 0.1 K/cumm Neutrophil pct 64.2 % Imm gran pct 0.2 % Lymphocyte pct 26.2 % Monocyte pct 6.8 % Eosinophil pct 2.3 % Basophil pct 0.3 % eGFR Collection Time: 11/02/23 4:43 AM Result Value Ref Range eGFR 8 (L) >=60 mL/min/1.73 m2 POCT glucose Collection Time: 11/02/23 4:14 PM Result Value Ref Range Glucose, POC 89 70 - 199 mg/dL Glucose comment 1 Use This Result POCT glucose Collection Time: 11/02/23 8:42 PM Result Value Ref Range Glucose, POC 124 70 - 199 mg/dL Glucose comment 1 Use This Result CBC with auto differential Collection Time: 11/03/23 6:36 AM Result Value Ref Range WBC 10.2 (H) 3.8 - 9.9 K/cumm Hgb 8.3 (L) 11.9 - 15.5 g/dL Hct 26.4 (L) 35.6 - 45.5 % Plt 282 150 - 400 K/cumm MPV 10.2 9.1 - 12.3 fL RBC 2.78 (L) 3.90 - 5.20 M/cumm MCV 95.0 81.3 - 96.4 fL MCH 29.9 27.1 - 33.3 pg MCHC 31.4 (L) 32.3 - 35.7 g/dL RDW CV 13.4 11.1 - 14.9 % RDW SD 47.3 35.7 - 48.1 fL NRBC abs 0.00 0.00 - 0.01 K/cumm Basic metabolic panel Collection Time: 11/03/23 6:36 AM Result Value Ref Range Sodium 144 135 - 145 mmol/L Potassium, pl 4.6 3.3 - 4.9 mmol/L Chloride 110 97 - 110 mmol/L CO2 21 (L) 22 - 32 mmol/L Anion gap 13 2 - 15 mmol/L BUN 68 (H) 6 - 25 mg/dL Creatinine 5.00 (H) 0.60 - 1.10 mg/dL Glucose 98 70 - 199 mg/dL Calcium 8.8 8.5 - 10.3 mg/dL Differential, auto Collection Time: 11/03/23 6:36 AM Result Value Ref Range Neutrophil abs 5.8 1.5 - 6.5 K/cumm Imm gran abs 0.0 0.0 - 0.1 K/cumm Lymphocyte abs 3.3 0.8 - 3.3 K/cumm Monocyte abs 0.7 0.2 - 0.8 K/cumm Eosinophil abs 0.3 0.0 - 0.5 K/cumm Basophil abs 0.0 0.0 - 0.1 K/cumm Neutrophil pct 57.2 % Imm gran pct 0.3 % Lymphocyte pct 32.4 % Monocyte pct 7.0 % Eosinophil pct 2.8 % Basophil pct 0.3 % eGFR Collection Time: 11/03/23 6:36 AM Result Value Ref Range eGFR 9 (L) >=60 mL/min/1.73 m2 POCT glucose Collection Time: 11/03/23 8:23 AM Result Value Ref Range Glucose, POC 105 70 - 199 mg/dL Transthoracic Echo (TTE) Complete W Doppler/CF Result Date: 10/30/2023 Narrative: Adult Echocardiogram + + :Name: SIXTO CHAKRABORTY Study Date: 10/30/2023 Status: E : : Patient Location: [address]^[id number]^MHeight: 62 in : : Weight: 136 lbBP: 154/62 mmHg: :: 1950 Gender: Female BSA: 1.6 m2 : :Reason For Study: TIA, initial exam : :Ordering Physician: : :LUCIANO JEKNINS : : : :Performed By: Juju : :SHEA Cheema : + + Procedure A two-dimensional transthoracic echocardiogram with color flow and Doppler was performed. A saline contrast injection was performed to assess for cardiac shunting. LeftVentricle The left ventricle is normal in size. There is mild concentric left ventricular hypertrophy. Ejection Fraction = 60-65%. Left ventricular systolic function is normal. Right Ventricle The right ventricle is normal in size and function. Atria The left atrial size is normal. Right atrial size is normal. A bubble study shows no evidence of intracardiac xfaov-eq-umou shunting, i.e. no patent foramen ovale (PFO). Mitral Valve There is no mitral valve stenosis. There is trace mitral regurgitation. Tricuspid Valve There is trace tricuspid regurgitation. Right ventricular systolic pressure is normal. Aortic Valve The aortic valve opens well. The aortic valve is trileaflet. No aortic stenosis . Trace aortic regurgitation. Pulmonic Valve Trace pulmonic valvular regurgitation. Great VesselsThe aortic root is normal size. IVC appears normal in size. IVC collapses normally with inspiration. Normal right heart pressures. Pericardium Trace pericardial effusion. Diastology Grade I diastolicdysfunction, (abnormal relaxation pattern). Interpretation Summary The left ventricle is normal in size. There is mild concentric left ventricular hypertrophy. Ejection Fraction = 60-65%. Left ventricular systolic function is normal. Grade I diastolic dysfunction, (abnormal relaxation pattern). A bubble study shows no evidence of intracardiac vduxf-um-cjyf shunting, i.e. no patent foramen ovale (P FO). Trace aortic regurgitation. + + :Measurements with Normals : : (0.6-1.2 LVIDd: (3.5-5.7 Ao root diam: (2.0-3.7 : :IVSd: 1.4 cmcm) 3.6 cm cm) 2.5 cm cm) : :LVPWd: (0.6-1.1 LVIDs: (3.1-4.6 LA dimension: (1.9-4.0 : :1.3cm cm) 1.7 cm cm) 3.9 cm cm) : + + MMode/2D Measurements & Calculations FS: 51.7 % Ao root area: LVOT diam: 1.9 cm LVLdap4: 8.2 cm EDV(Teich): 53.7 ml 4.9 cm2 LVOT area: EDV(MOD-sp4): ESV(Teich): 8.8 ml 2.8 cm2 52.4 mlLVLs ap4: 6.5 cm ESV(MOD-sp4): 19.9 ml EF(MOD-sp4): 62.0 % SV(MOD-sp4): EF (BP): 62.2 % 32.5 ml Doppler Measurements & CalculationsMV A dur: 0.12 sec MV V2 max: MV dec time: Ao V2 max: MV E max leonard: 110.0 cm/sec 0.24 sec 158.0 cm/s ec 88.3 cm/sec MV max PG: Ao max PG: MV A max leonard: 4.8 mmHg 10.0 mmHg 101.0 cm/sec MV V2 mean: Ao V2 mean: MV E/A: 0.87 66.3 cm/sec 111.0 cm/sec MV mean PG: Ao mean P.0 mmHg 5.0 mmHg MV V2 VTI:32.9 cm Ao V2 VTI: 36.6 cm MVA(VTI): 2.2 cm2 ALEXEY(I,D): 2.0 cm2 ALEXEY(V,D): 2.0 cm2 LV V1 max PG: SV(LVOT): 72.6 ml TV V2 max: PA V2 max:5.2 mmHg 49.0 cm/sec 142.0 cm/sec LV V1 mean PG: TV max PG: PA max P.1 mmHg 2.0 mmHg 0.96 mmHg LV V1 max: 114.0 cm/sec LV V1 mean: 72.5 cm/sec LV V1 VTI: 25.6 cm PI end-d leonard: RV V1 max: TR max leonard: RAP systole: 70.6 cm/sec 117.0 cm/sec 169.0 cm/sec 3.0 mmHg TR max P.4 mmHg RVSP(TR): 14.4 mmHg Pulm Sys Leonard: 70.3 cm/sec Pulm De Los Santos Leonard: 43.2 cm/sec Pulm A Revs Leonard: 32.5 cm/sec Pulm A Revs Dur: 0.10 sec Pulm S/D: 1.6 Electronically signed by: Portillo Hernandez MD10/30/2023 10:31 AM MRI Brain WO Contrast Result Date: 10/30/2023 Narrative: EXAM DESCRIPTION: MRI BRAIN WO CONTRAST REASON [...] Images stored on PACS. COMPARISON: 10/29/2023 head CTFINDINGS: CEREBRUM: No hemorrhage, edema, or mass effect. Unremarkable ventricles WHITE MATTER: There is moderate periventricular and pontine T2/FLAIR hyperintense white matter disease, nonspecific, though likely secondary to chronic microvascular ischemia. POSTERIOR FOSSA: Brainstem and cerebellumappear unremarkable. DIFFUSION IMAGING: There is a small focus of diffusion weighted hyperintensityin the posterior right temporal lobe with mild associated ADC hypointensity. This is compatible with an acute to subacute infarction. There is mild associated FLAIR signal hyperintensity. EXTRAAXIAL SPACES: No hemorrhage. No mass. BRAIN VOLUME: Within normal limits for age. PITUITARY: Unremarkable.VASCULATURE: No flow disturbance identified. ORBITS: No masses. [...] microvascular ischemia. Upper cervical degenerative disc disease withat least moderate spinal canal stenosis at C3-C4, poorly assessed on the current protocol. This could be further assessed with cervical spine MRI. Bilateral mastoid effusions THIS IS AN ELECTRONICALLY VERIFIED FINAL REPORT 10/30/2023 8:29 AM - Electronically signed by James Javier M.D.MZ: VALENTINA Report ID: [id number] Reading Location: [id number] CT Head WO Contrast Result Date: 10/29/2023 Narrative: EXAM DESCRIPTION: CT HEAD WO CONTRAST REASON FOR STUDY: Mental status change, unknown cause TECHNIQUE: Axial images acquired through the brain without intravenous contrast. Images stored on PACS. Automated exposure control was used as a dose optimization technique for this examination. COMPARISON: 10/11/2023. FINDINGS: BRAIN: Ventricles, cisterns and sulci are symmetric and normal in size and configuration. There are moderate confluent and patchy areas of hypodensity in the periventricular, subcortical and deep white matter as evidence for chronic microvascular angiopathy, similar to prior exam. No intracranial hemorrhage is evident. EXTRA-AXIAL SPACES: No fluid collections. No mass effect. CALVARIUM: Appears intact. Hyperostosis frontalis interna incidentally noted. SINUSES/MASTOIDS: There is a large right mastoid effusion and small to moderate left mastoid effusion, similar to prior exam. ORBITS: No significant abnormality. OTHER: No other significant abnormality. IMPRESSION: No acute intracranial findings. Moderate chronic microvascular angiopathy, similar to prior exam. Large right mastoid effusion and small to moderate left mastoid effusion, similar to prior exam.THIS IS AN ELECTRONICALLY VERIFIED FINAL REPORT 10/29/2023 8:34 PM - Electronically signed by Jeff Cruz M.D..OBrenda Cormier M.D.O. MW: KLEVER Report ID: [id number] Reading Location: [id number] XR Chest 1 Vw Portable Result Date: 10/29/2023 Narrative: EXAM DESCRIPTION: XR CHEST 1 VIEW REASON FOR STUDY: general weakness Pt brought in by EMS from dialysis for tremors. TECHNIQUE: Single radiographic view(s) of the chest. COMPARISON: 10/10/2023 FINDINGS: LUNGS: No focal consolidation or definite pleural effusion. No pneumothorax. HEART/MEDIASTINUM: Stable cardiomediastinal contour. LINES/TUBES: Right IJ central venous catheter with the tip in the distal SVC. BONES: No acute osseous abnormality. IMPRESSION: No acute cardiopulmonary abnormality. THIS IS AN ELECTRONICALLY VERIFIED FINAL REPORT 10/29/2023 6:21 PM - Electronically signed by Navneet Enriquez M.D. AG: TON Report ID: [id number] Reading Location: [id number] IR Tunneled CVC > 5 Years Result Date: 10/16/2023 Narrative: EXAMINATION: IR TUNNELED LINE PLACEMENT > 5 YEARS Date: 10/15/2023 8:30 AM History: End-stage renal disease Fluoroscopy time: 0.01 minutes. Technique: The risks, benefits, and alternatives were discussed and informed consent was obtained. Prior to beginning the procedure, universal protocol was performed to confirm the patient's identity and the planned procedure. Maximum sterile barriers including cap, mask, hand hygiene, sterile gloves, sterile gown, large sterile drape, sterile gel, sterile ultrasound probe cover, and 2% chlorhexidine for cutaneous antisepsis were used. Prior to the procedure, the right internal jugular vein was evaluated by real-time ultrasound which demonst rated patency of the target vessel and an image of the PATENT VESSEL was recorded in the patient's electronic medical record. The skin over this vein was sterilely prepped, draped, and infiltrated with 1% lidocaine. This vein was then accessed with a 21-gauge needle using real-time ultrasound guidance for needle placement. A guidewire was passed centrally using fluoroscopic guidance. The intravascular length from the access site to the right atrium was assessed. After infiltrating the skin in the subclavicular region with 1% lidocaine, a short transverse incision was made and the 24 Duramax catheter was tunneled to the internal jugular vein access site and inserted through a peel-away sheath. The peel-away sheath was then removed. The catheter was flushed with heparin and secured in place. The incision in the lower neck was closed using 4-0 Monocryl. A sterile dressing was applied. Findings: The final fluoroscopic image demonstrates the catheter with its tip cavoatrial junction. No complications were identified. Impression: Successful tunneled catheter placement, as described above. Plan: The catheter is readyfor immediate use. When treatment is completed, removal can be scheduled by calling [facility] Interventional Radiology at [phone]. Electronically signed by: Marcus Mcdonald M.D. CT Head WO Contrast Result Date: 10/11/2023 Narrative: EXAMINATION: CT HEAD WO CONTRAST DATE: 10/11/2023 10:05 AM HISTORY: Mental status change.COMPARISON: None. TECHNIQUE: Transaxial computed tomographic images of the head were obtained without intravenous contrast. FINDINGS: No mass, mass effect, midline shift, or hemorrhage is demonstrated. Scattered hypodensities are noted throughout the white matter consistent with chronic microvascular ischemic changes. The orbits and paranasal sinuses are normal in appearance. Extracalvarial soft tissues are unremarkable. Bilateral mastoid effusions, right greater than left. Impression: 1. No acute intracranial findings. 2. Scattered hypodensities compatible with chronic microvascular ischemic changes. 3. Bilateral mastoid effusions, right greater than left. Electronically signed by: Phil Pete II, D.O. XR Chest 1 View Result Date: 10/11/2023 Narrative: EXAMINATION: XR CHEST 1 VIEW DATE: 10/10/2023 4:50 PM INDICATION: CHF follow-up. COMPARISON: 07/28/2023. Impression: FINDINGS/IMPRESSION: No pneumothorax or pleural effusion. Mild pulmonary vascular congestion. No cardiomegaly. No acute osseous abnormality. Electronically signed by: Phil Pete II, D.O. ECG 12 lead Result Date: 10/07/2023 Narrative: Vent Rate: 74 bpm RR Interval: 801 msec SC Interval: 163 msec QRS Duration: 72 msec QT Interval: 389 msec QTC Interval: 417 msec P-R-T Spangler: 62 - 20 - 207 degrees IMPRESSION: SINUS RHYTHM NONSPECIFIC T-WAVE ABNORMALITY Electronically Signed By: Ilan Ghotra MD, [facility] No results found for the last 90 days. Current Facility-Administered Medications Medication Dose Route Frequency Provider Last Rate Last Admin acetaminophen (TYLENOL) tablet 650 mg 650 mg oral Q4H PRN Luciano Jenkins MD Or acetaminophen (TYLENOL) 32 mg/mL oral liquid 650 mg 650 mg feeding tube Q4H PRN Luciano Jenkins MD Or acetaminophen (TYLENOL) suppository 650 mg 650 mg rectal Q4H PRN Luciano Jenkins MD aspirin enteric coated tablet 81 mg 81 mg oral Daily Luciano Jenkins MD 81 mg at 009 atorvastatin (LIPITOR) tablet 20 mg 20 mg oral Nightly Aylin Kauffman MD 20 mg at 10/30/232048 benzonatate (TESSALON) capsule 100 mg 100 mg oral TID PRN Luciano Jenkins MD dextrose (GLUTOSE) 40 % gel 15 g 15 g oral Q15 Min PRN Luciano Jenkins MD Or dextrose (D10W) 10% bolus 250 mL 250 mL intravenous Q15 Min PRN Luciano Jenkins MD famotidine (PEPCID) tablet 10 mg 10 mg oral Daily Aylin Kauffman MD 10 mg at 10/30/23 1203 fluticasone propionate (FLONASE) 50 mcg/actuation nasal spray 2 spray 2 spray each nostril Daily Aylin Kauffman MD 2 spray at 10/30/23 1440 glucagon injection 1 mg 1 mg intramuscular Q30 Min PRN Luciano Jenkins MD heparin 1,000 unit/mL injection 1.5-6.9 mL 1.5-6.9 mL intra-catheter PRN Markie Ryan MD heparin 1,000 unit/mL injection 500 Units 500 Units dialysis circuit PRN Markie Ryan MD heparin 5,000 unit/mL injection 5,000 Units 5,000 Units subcutaneous Q8H [facility] Luciano Jenkins MD 5,000 Units at 10/31/23 0503 insulin glargine (LANTUS, SEMGLEE) 100 unit/mL injection 16 Units 0.25 Units/kg subcutaneous Nightly Aylin Kauffman MD 16 Units at 10/30/232048 insulin lispro (HumaLOG, ADMELOG) 100 unit/mL injection 0-10 Units 0-10 Units subcutaneous TID withmeals Luciano Jenkins MD 4 Units at 10/30/23 1301 insulin lispro (HumaLOG, ADMELOG) 100 unit/mL injection 0-5 Units 0-5 Units subcutaneous Nightly Luciano Jenkins MD 1 Units at 10/30/232049 insulin lispro (HumaLOG, ADMELOG) 100 unit/mL injection 5 Units 0.083 Units/kg subcutaneous TID with meals Luciano Jenkins MD 5 Units at 10/30/231757 metoprolol tartrate (LOPRESSOR) immediate release split tablet 6.25 mg 6.25 mg oral BID Aylin Kauffman MD 6.25 mg at 10/30/232048 polyethylene glycol (MIRALAX) packet 17 g 17 g oral Daily PRN Luciano Jenkins MD ramelteon (ROZEREM) tablet 8 mg 8 mg oral Nightly PRN Aylin Kauffman MD Assessment/Plan Principal Problem: Altered mental status, unspecified altered mental status type Active Problems: AMS (altered mental status) ESRD (end stage renal disease) on dialysis ([facility]) Anemia of renal disease ESRD on hemodialysis ([facility]) (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 Presented with altered mental status and episode of hypotension during dialysis was found to have small acute to subacute infarct in the posterior right temporal lobe. # Acute metabolic encephalopathy with underlying dementia-resolved, patient back her baseline #Small acute to subacute infarct in the posterior right temporal lobe. MRI done today suggestive of small acute/subacute infarct in right temporal lobe On aspirin 81 mg daily, atorvastatin 40 mg daily Carotid Doppler with less than 50% proximal ICA stenosis Neurology consult: Discussed with Dr. Buckley EEG Generalized slowing suggests diffuse cerebral dysfunction, as can be seen encephalopathy due tovarious etiologies. No focal slowing no seizure like activity was observed. # history of schizophrenia: # history of possible drug-induced parkinsonism symptoms -psychiatry on consult: Recommend restarting Risperdal 1mg nightly for mood. Restart Cogentin at 1mg nightly for tremor symptoms. Will restart at lower dose as Cogentin can contribute to confusion. May consider increasing back to 1.5mg qHS if needed (patient's home dose). Recommend Rozerem 8mg nightly prn for sleep. On risperidone 1 mg Q nightly and benztropine 1 q.day # leukocytosis-resolved - Patient remains afebrile with no new complaint - CXR on 10/28 with no evidence of pneumonia/infection -UA on 10/28 with no evidence of UTI -uptrending WBC Blood culture NGTD # ESRD on hemodialysis: -on dialysis Thursday//Thursday -nephrology on consult appreciate recommendations # Diabetes mellitus with hyperglycemia/diabetic nephropathy - Accu-Chek with dialysis # hypertension #labile BP Possible underlying autonomic dysfunction Continue small dose of metoprolol tartrate 6.25 mg b.i.d. #anemia of chronic disease Stable hemoglobin DVT prophylaxis: Heparin subQ Code status: Full Code I spent a total of 26 minutes towards direct care for this patient. I personally discussed plan with patient, patient's daughter via phone, consultants and house staff Pending SNF placement * Wilner Kruse PTA - 11/03/2023 10:18 AM CDT Physical Therapy 11/03/23 1018 PT Last Visit Session Type Treatment PT Missed Visit Reason With other staff/receiving another service (Dialysis) * Markie Ryan MD - 11/03/2023 9:35 AM CDT Renal Progress Note Admit Date: 10/29/2023 Days: 4 Reason for Follow up: ESRD Clinical Course/New Symptoms Patient undergoing hemodialysis at present, somewhat more awake and alert Data Vitals: 11/03/23 0830 BP: (!) 179/91 Pulse: 72 Resp: Temp: SpO2: Exam Constitutional: alert, elderly, no acute distress. Head: Normocephalic. Eyes: No icterus, extraocular movements normal Neck: Neck supple. Cardiovascular: Normal rate and regular rhythm. No murmur heard. Pulmonary/Chest: Breath sounds normal. Abdominal: Soft. Musculoskeletal: exhibits no edema. Neurological: alert and moves all 4 limbs. Involuntary movements of the left upper extremity Skin: No rashes Intake/Output Summary (Last 24 hours) at 11/03/2023 0937 Last data filed at 11/03/2023 0830 Gross per 24 hour Intake 490 ml Output -- Net 490 ml MEDICATIONS FOR CURRENT ENCOUNTER: SCHEDULED MEDICATIONS: Scheduled Medications Medication Dose Route Frequency aspirin enteric coated tablet 81 mg 81 mg oral Daily atorvastatin (LIPITOR) tablet 40 mg 40 mg oral Nightly benztropine (COGENTIN) tablet 1 mg 1 mg oral Nightly darbepoetin isaiah (ARANESP) 40 mcg/mL injection 40 mcg 40 mcg intravenous Weekly famotidine (PEPCID) tablet 10 mg 10 mg oral Daily fluticasone propionate (FLONASE) 50 mcg/actuation nasal spray 2 spray 2 spray each nostril Daily heparin 5,000 unit/mL injection 5,000 Units 5,000 Units subcutaneous Q8H SOL insulin glargine (LANTUS, SEMGLEE) 100 unit/mL injection 16 Units 0.25 Units/kg subcutaneous Nightly insulin lispro (HumaLOG, ADMELOG) 100 unit/mL injection 0-10 Units 0-10 Units subcutaneous TID withmeals insulin lispro (HumaLOG, ADMELOG) 100 unit/mL injection 0-5 Units 0-5 Units subcutaneous Nightly insulin lispro (HumaLOG, ADMELOG) 100 unit/mL injection 5 Units 0.083 Units/kg subcutaneous TID with meals metoprolol tartrate (LOPRESSOR) immediate release split tablet 6.25 mg 6.25 mg oral BID risperiDONE (RisperDAL) tablet 1 mg 1 mg oral Nightly CONTINUOUS MEDICATIONS: Current Facility-Administered Medications Medication Dose Route Frequency Last Admin PRN MEDICATIONS: PRN Medications Medication Dose Route Frequency Last Admin acetaminophen (TYLENOL) tablet 650 mg 650 mg oral Q4H PRN Or acetaminophen (TYLENOL) 32 mg/mL oral liquid 650 mg 650 mg feeding tube Q4H PRN Or acetaminophen (TYLENOL) suppository 650 mg 650 mg rectal Q4H PRN benzonatate (TESSALON) capsule 100 mg 100 mg oral TID PRN dextrose (GLUTOSE) 40 % gel 15 g 15 g oral Q15 Min PRN Or dextrose (D10W) 10% bolus 250 mL 250 mL intravenous Q15 Min PRN glucagon injection 1 mg 1 mg intramuscular Q30 Min PRN heparin 1,000 unit/mL injection 1.5-6.9 mL 1.5-6.9 mL intra-catheter PRN 4 mL at 10/31/23 1109 heparin 1,000 unit/mL injection 500 Units 500 Units dialysis circuit PRN OLANZapine (ZyPREXA) tablet 2.5 mg 2.5 mg oral Q8H PRN polyethylene glycol (MIRALAX) packet 17 g 17 g oral Daily PRN ramelteon (ROZEREM) tablet 8 mg 8 mg oral Nightly PRN My review of labs, imaging, notes and other tests is significant for Recent Labs Lab Units 11/03/23 0636 11/02/233 11/01/23 0506 WBC K/cumm 10.2* 9.4 13.4* HEMOGLOBIN g/dL 8.3* 8.7* 8.8* HEMATOCRIT % 26.4* 27.2* 27.3* PLATELETS K/cumm 282 250 262 . Recent Labs Lab Units 11/03/23 0823 11/03/23 0636 11/02/23 2042 11/02/23 1614 11/02/23 0443 11/01/23 0816 11/01/23 0506 10/30/23 0939 10/30/23 0446 10/29/23 2343 10/29/23 1826 SODIUM mmol/L -- 144 -- -- 140 -- 138 < > 141 -- 135 POTASSIUM PLASMA mmol/L -- 4.6 -- -- 4.6 -- 4.1 < > 4.3 -- 3.9 CHLORIDE mmol/L -- 110 -- -- 106 -- 102 < > 103 -- 97 CO2 mmol/L -- 21* -- -- 22 -- 24 < > 24 -- 25 CREATININE mg/dL -- 5.00* -- -- 5.20* -- 4.10* < > 3.00* -- 2.10* GLUCOSE mg/dL -- 98 -- -- 127 -- 177 < > 175 -- 129 POC GLUCOSE MONITOR mg/dL 105 -- 124 < > -- < > -- < > -- < > -- CALCIUM mg/dL -- 8.8 -- -- 8.7 -- 8.4* < > 8.6 -- 8.4* ALBUMIN g/dL -- -- -- -- -- -- -- -- 3.2* -- 3.3* PHOSPHORUS PLASMA mg/dL -- -- -- -- -- -- -- -- 4.4 -- -- < > = values in this interval not displayed. .No lab exists for component: COLORUA , CHARACTERUA , SPECGRAVUA , PHUA , PROTEINUA , BLOODUA , LEUKOCYTEUA , NITRITEUA , GLUCOSEUA , KETONEUA , BILIRUBINUA , UROBILINUA , WBCUA , RBCUA , EPITHUA , MUCUSUA , CASTUA , CRYSTALUA , BACTERIAUA , YEASTUA , TRICHUA EEG Wilner Buckley MD 10/31/2023 1:25 PM Reason [...] observed. Correlation with clinical findings is needed. Assessment and Plan Principal Problem: Altered mental status, unspecified altered mental status type Active Problems: AMS (altered mental status) ESRD (end stage renal disease) on dialysis ([facility]) Anemia of renal disease ESRD on hemodialysis ([facility]) ([facility]) Resolved Problems: No resolved hospital problems. Presentation with reported altered mental status occurring during outpatient hemodialysis. 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 Questionable acute to subacute infarct on MRI. Avoid over control of blood pressure for now. Anemia but will hold off on erythropoietin analog for now with recent events and can reassess. Underlying history of schizoaffective disorder along with presumed dementia. She is not a good candidate for chronic dialysis given these issues and unfortunately may have more rapid deterioration of her SURGICAL TECHNICIAN symptoms on dialysis. Tolerating session today without acute issue but will have ongoing discussions pending her clinical course. 11/02/2023 Serum potassium is 4.6 and bicarbonate 22. Volume status is acceptable. No plan for dialysis today,usual schedule is Thursday, , Thursday. Will plan for dialysis tomorrow if still in the hospital. Blood pressure 155/57 mmHg. Would not lower systolic much for the since diastolic is low. Hemoglobin 8.7 g%, will continue erythropoietin analog in the hospital. 11/02 Undergoing hemodialysis at present. She is somewhat more awake and alert today. Can evaluate ongoing tolerance of hemodialysis from a SURGICAL TECHNICIAN standpoint. Otherwise okay with discharge when okay with others Thank you. Markie Ryan MD [facility] Nephrology and Hypertension Office: [phone] * Erica Marquez COTA - 11/03/2023 7:41 AM CDT Occupational Therapy 11/03/23 0741 General Session Type Treatment OT Received On 11/03/23 Safe Environment Arm band checked;Patient found in supine;Session completed bedside Subjective Agreeable to Therapy Subjective Comment I like to eat breakfast Family/Caregiver Present No Current Functional Status OT Functional Mobility Patient ocmpleted sit to stand from EOB with SBA. Patient completed functional mobility within room (around the bed into bathroom to recliner) utilizing walker with SBA. Patient completed sit <> stand from standard toilet with SBA. OT Self Care Patient completed toilet transfer with SBA, clothing management with SBA and independence with anterior hygiene sitting on toilet. Patient stood in front of sink to wash hands with SBA. Precautions Precautions Bed/Chair Alarm;Fall risk Pain Assessment Pain Assessment No/denies pain Bed Mobility Bed Mobility Yes Bed Mobility 1 Bed Mobility From 1 Supine Bed Mobility Type 1 To Bed Mobility to 1 Edge of bed Level of Assistance 1 Standby Assist Bed Mobility Comments 1 use of bed rail Safe Environment End of Therapy Session Safe Environment End of Therapy Session Patient left in recliner;Chair alarm in place and activated;RN notified;Call light within reach;Overbed table within reach (bilateral legs elevated) Plan Plan Continue with current plan Recommendation/Plan OT Recommendation (S) Home with family;Home with caregiver;Home Health OT Education provided to the patient/caregiver regarding the role of occupational therapy, plan of care, goals of therapy, rationale for progressing mobility and use of call light. Fair understanding. [employer] Utilized: NO * Sera Castaneda LCSW - 11/02/2023 4:09 PM CDT STEPHANIA informed by CM that dtr is interested in SNF. Referral sent via [employer] to [facility] in [place]. --- PASRR completed - Queued for review. Assessment ID: [id number] . * Evelyn Farfan RN - 11/02/2023 11:30 AM CDT Consult to [facility] Palliative Care received, thank you. Sixto Chakraborty 1950 73 y.o. [id number] Diagnosis: ESRD Code Status: Full [facility] Manager [employer] spoke with Areli acknowledging palliative care consult. Informed her [facility] Manager [employer] will be available at [phone] to speak with patient and family, she verbalized understanding. Discussed code status and goals of care. Please contact [facility] Hospice with any questions or needs for support at: Evelyn Farfan RN PCS [facility] Manager [employer] [facility] 24 Hour Triage Support [phone] * Wilner Kruse PTA - 11/02/2023 11:09 AM CDT Physical Therapy 11/02/23 1109 PT Last Visit Session Type Treatment PT Received On 11/02/23 Safe Environment Patient found sitting in chair;Arm band checked;Gait belt utilized for all out of bed mobility;Session completed bedside Subjective Agreeable to Therapy Subjective Comment (S) I'm hoping to eat my breakfast before I go walking. (Pt had already eaten her breakfast.) Family/Caregiver Present No Precautions Precautions Bed/Chair Alarm;Fall risk Pain Assessment Pain Assessment No/denies pain Cognition Arousal/Alertness Alert Orientation Oriented to person;Oriented to place Following Commands Follows one step commands without difficulty Transfer 1 Transfer From 1 Cardiac chair;Sit Transfer Type 1 To and from Transfer to 1 Stand Technique 1 Sit to stand;Stand to sit Transfer Device 1 Wheeled walker Transfer Level of Assistance 1 Contact Guard Assist Trials/Comments 1 Cues for hand placement on the chair arms vs the walker. Ambulation Functional Ambulation Category 2 Ambulation Yes Ambulation 1 Distance (ft) 1 135 Surface 1 Level tile Device 1 Wheeled walker Assistance 1 Contact Guard Assist Gait: Requires assist with 1 Maintaining balance Gait: Requires verbal cues to 1 Use assistive device safely;Prevent bumping into environmental barriers (huizar/furniture);Increase step length Gait Deviations 1 Brigid - decreased;Step length - decreased Quality of Gait 1 Good Ambulation Comments 1 Pt ambulated well w/FWW. No LOB noted. Pt follows navigational cues w/o difficulty. Safe Environment End of Therapy Session Safe Environment End of Therapy Session Patient left in recliner;Chair alarm in place and activated;RN notified;Call light within reach;Overbed table within reach Recommendation/Plan PT Recommendation/Plan (S) Home with 24 hour supervision;Home Health PT;Home Health OT Progress during current admission Progressing toward goals Multi-Disciplinary Problems (from Physical Therapy) Active Problems Problem: Mobility Start Date: 10/30/23 Goal Start Date Expected End Date End Date LTG - Patient will demonstrate functional mobility with the following level of assist: 10/30/23 11/13/23 -- Goal Details: Pt will transfer and ambulate 50 feet, w walker, cga of 1, Goal met. [employer] Utilized: NO Educated the patient to the role of physical therapy, plan of care, goals of therapy, rationale forprogressing mobility. Patient was left with all needs met and equipment intact. Mobility and ADL status posted at bedsideand within medical record. * Tucker Pitts MD - 11/02/2023 10:19 AM CDT Renal Progress Note Admit Date: 10/29/2023 Days: 3 Reason for Follow up: ESRD Clinical Course/New Symptoms Patient denies any shortness of breath, nausea vomiting. Notes that she wants to go home. Data Vitals: 11/02/23 0700 BP: 156/64 Pulse: 64 Resp: 18 Temp: 36.7 ??C (98.1 ??F) SpO2: 99% Exam Constitutional: alert, elderly, no acute distress. Head: Normocephalic. Eyes: No icterus, extraocular movements normal Neck: Neck supple. Cardiovascular: Normal rate and regular rhythm. No murmur heard. Pulmonary/Chest: Breath sounds normal. Abdominal: Soft. Musculoskeletal: exhibits no edema. Neurological: alert and moves all 4 limbs. Involuntary movements of the left upper extremity Skin: No rashes Intake/Output Summary (Last 24 hours) at 11/02/2023 1020 Last data filed at 11/01/2023 1900 Gross per 24 hour Intake 360 ml Output 300 ml Net 60 ml MEDICATIONS FOR CURRENT ENCOUNTER: SCHEDULED MEDICATIONS: Scheduled Medications Medication Dose Route Frequency aspirin enteric coated tablet 81 mg 81 mg oral Daily atorvastatin (LIPITOR) tablet 40 mg 40 mg oral Nightly benztropine (COGENTIN) tablet 1 mg 1 mg oral Nightly famotidine (PEPCID) tablet 10 mg 10 mg oral Daily fluticasone propionate (FLONASE) 50 mcg/actuation nasal spray 2 spray 2 spray each nostril Daily heparin 5,000 unit/mL injection 5,000 Units 5,000 Units subcutaneous Q8H SOL insulin glargine (LANTUS, SEMGLEE) 100 unit/mL injection 16 Units 0.25 Units/kg subcutaneous Nightly insulin lispro (HumaLOG, ADMELOG) 100 unit/mL injection 0-10 Units 0-10 Units subcutaneous TID withmeals insulin lispro (HumaLOG, ADMELOG) 100 unit/mL injection 0-5 Units 0-5 Units subcutaneous Nightly insulin lispro (HumaLOG, ADMELOG) 100 unit/mL injection 5 Units 0.083 Units/kg subcutaneous TID with meals metoprolol tartrate (LOPRESSOR) immediate release split tablet 6.25 mg 6.25 mg oral BID risperiDONE (RisperDAL) tablet 1 mg 1 mg oral Nightly CONTINUOUS MEDICATIONS: Current Facility-Administered Medications Medication Dose Route Frequency Last Admin PRN MEDICATIONS: PRN Medications Medication Dose Route Frequency Last Admin acetaminophen (TYLENOL) tablet 650 mg 650 mg oral Q4H PRN Or acetaminophen (TYLENOL) 32 mg/mL oral liquid 650 mg 650 mg feeding tube Q4H PRN Or acetaminophen (TYLENOL) suppository 650 mg 650 mg rectal Q4H PRN benzonatate (TESSALON) capsule 100 mg 100 mg oral TID PRN dextrose (GLUTOSE) 40 % gel 15 g 15 g oral Q15 Min PRN Or dextrose (D10W) 10% bolus 250 mL 250 mL intravenous Q15 Min PRN glucagon injection 1 mg 1 mg intramuscular Q30 Min PRN heparin 1,000 unit/mL injection 1.5-6.9 mL 1.5-6.9 mL intra-catheter PRN 4 mL at 10/31/23 1109 heparin 1,000 unit/mL injection 500 Units 500 Units dialysis circuit PRN OLANZapine (ZyPREXA) tablet 2.5 mg 2.5 mg oral Q8H PRN polyethylene glycol (MIRALAX) packet 17 g 17 g oral Daily PRN ramelteon (ROZEREM) tablet 8 mg 8 mg oral Nightly PRN My review of labs, imaging, notes and other tests is significant for Recent Labs Lab Units 11/02/2344211/01/23 0506 10/31/23 0451 WBC K/cumm 9.4 13.4* 10.1* HEMOGLOBIN g/dL 8.7* 8.8* 8.3* HEMATOCRIT % 27.2* 27.3* 25.9* PLATELETS K/cumm 250 262 242 . Recent Labs Lab Units 11/02/23 0443 11/01/23 2040 11/01/23 1126 11/01/23 0816 11/01/23 0506 10/31/23 0721 10/31/23 0451 10/30/23 0939 10/30/23 0446 10/29/23 2343 10/29/23 1826 SODIUM mmol/L 140 -- -- -- 138 -- 141 -- 141 -- 135 POTASSIUM PLASMA mmol/L 4.6 -- -- -- 4.1 -- 4.7 -- 4.3 -- 3.9 CHLORIDE mmol/L 106 -- -- -- 102 -- 108 -- 103 -- 97 CO2 mmol/L 22 -- -- -- 24 -- 22 -- 24 -- 25 CREATININE mg/dL 5.20* -- -- -- 4.10* -- 4.00* -- 3.00* -- 2.10* GLUCOSE mg/dL 127 -- -- -- 177 -- 97 -- 175 -- 129 POC GLUCOSE MONITOR mg/dL -- 151 171 < > -- < > -- < > -- < > -- CALCIUM mg/dL 8.7 -- -- -- 8.4* -- 8.6 -- 8.6 -- 8.4* ALBUMIN g/dL -- -- -- -- -- -- -- -- 3.2* -- 3.3* PHOSPHORUS PLASMA mg/dL -- -- -- -- -- -- -- -- 4.4 -- -- < > = values in this interval not displayed. .No lab exists for component: COLORUA , CHARACTERUA , SPECGRAVUA , PHUA , PROTEINUA , BLOODUA , LEUKOCYTEUA , NITRITEUA , GLUCOSEUA , KETONEUA , BILIRUBINUA , UROBILINUA , WBCUA , RBCUA , EPITHUA , MUCUSUA , CASTUA , CRYSTALUA , BACTERIAUA , YEASTUA , TRICHUA EEG Wilner Buckley MD 10/31/2023 1:25 PM Reason [...] observed. Correlation with clinical findings is needed. Assessment and Plan Principal Problem: Altered mental status, unspecified altered mental status type Active Problems: AMS (altered mental status) ESRD (end stage renal disease) on dialysis ([facility]) Resolved Problems: No resolved hospital problems. Presentation with reported altered mental status occurring during outpatient hemodialysis. 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 Questionable acute to subacute infarct on MRI. Avoid over control of blood pressure for now. Anemia but will hold off on erythropoietin analog for now with recent events and can reassess. Underlying history of schizoaffective disorder along with presumed dementia. She is not a good candidate for chronic dialysis given these issues and unfortunately may have more rapid deterioration of her SURGICAL TECHNICIAN symptoms on dialysis. Tolerating session today without acute issue but will have ongoing discussions pending her clinical course. 11/19/2023 Serum potassium is 4.6 and bicarbonate 22. Volume status is acceptable. No plan for dialysis today,usual schedule is Thursday, , Thursday. Will plan for dialysis tomorrow if still in the hospital. Blood pressure 155/57 mmHg. Would not lower systolic much for the since diastolic is low. Hemoglobin 8.7 g%, will continue erythropoietin analog in the hospital. Thank you. Tucker Pitts MD [facility] [place] Nephrology and Hypertension Office: [phone] * Jordy Grayson, OT - 11/02/2023 9:03 AM CDT Occupational Therapy 11/02/23 0903 General Chart Reviewed Yes Session Type Evaluation OT Received On 11/02/23 Safe Environment Arm band checked Subjective Agreeable to Therapy Subjective Comment I use the wkr sometimes Additional Pertinent History Dx: AMS, started acting sofie at dialysis session PMH: DM, shizoaffective disorder, bipolar, anemia, Parkinsonism, Alzheimers dementia Family/Caregiver Present No Occupational Therapy-Patient Goal Pt. wants to return home with daughter Current Functional Status OT Functional Mobility SBA for bed mobility for VC's and hand placement, CGA for sit-stand and transfer to chair OT Self Care Pt. able to don/doff 1 sock with min A OT Cognition A/O x2 OT Communication intact Precautions Precautions Bed/Chair Alarm Precaution Comments tele Home Living Type of Home House Home Layout One level Home Access Level entry Bathroom Shower/Tub Tub/shower unit Bathroom Equipment Grab bars in shower/tub Home Mobility Equipment-Available Wheeled walker Additional Comments Pt. was indep for mobility and basic ADL's, Dtr does driving, meds, and much ofIADL's. 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 tolerates some EOB activity, but very lethargic during session Cognition Cognition Comments impaired, dtr completes med mgnt Overall Cognitive Status Impaired Arousal/Alertness Lethargic Attention Span Attends with cues to redirect Memory Decreased short term memory;Decreased recall of recent events;Decreased recall of precautions Orientation Oriented to person;Oriented to place Safety Judgment Decreased awareness of need for safety Proprioception Proprioception No apparent deficits Motor Planning Motor Planning Appears intact Hand Preference Hand Preference Right Hand Function Coordination Functional Gross Grasp Functional Reach/Grasp RUE Reach WFL LUE Reach WFL RUE Grasp Gross grasp LUE Grasp Gross grasp Bed Mobility 1 Bed Mobility Comments 1 SBA for bed mobility Transfer 1 Trials/Comments 1 CGA for transfer with wwkr from bed to chair RUE Assessment RUE Assessment WFL LUE Assessment LUE Assessment WFL RLE Assessment RLE Assessment WFL LLE Assessment LLE Assessment WFL OT Treatment/Exercise Comments OT Treatment/Exercise Comments Pt.pleasant and cooperative with treatment but is lethargic and giveinconsistent responses to questions Safe Environment End of Therapy Session Safe Environment End of Therapy Session Patient left in chair;Chair alarm in place and activated;Call light within reach;Overbed table within reach Assessment Prognosis Fair Problem List Decreased cognition;Decreased endurance;Decreased balance;Decreased functional mobility;Decreased IADL independence;Decreased ADL independence Plan Plan Plan of care initiated Recommendation/Plan OT Recommendation Home with family;Home with caregiver;Home Health OT Patient at high risk for Falls;Injury due to decreased ability to care for self;Injury due to reduced functional status;Injury due to impaired cognition;Injury due to balance deficits OT Recommendation/Plan Comments Recomnend home health OT and 24 hour superivision due to cog deficits OT Frequency during current admission 3-5x/wk Treatment/Interventions during current admission ADL/IADL retraining;Balance Training;Bed mobility;Endurance training;Functional mobility training;Functional transfer training;Neuromuscular re-education;Strengthening;Therapeutic activity;Therapeutic exercise;Transfer training OT Equipment Recommended Shower chair;Transfer tub bench OT - Next Appointment 11/16/23 OT Evaluation Complete Yes Education provided to the patient/caregiver regarding the role of occupational therapy, plan of care, goals of therapy, rationale for progressing mobility and use of call light. Verbalizes understanding. [employer] Services Utilized: NO Pt will benefit from skilled OT in order to increase safety and independence with ADL/IADls, decrease fall risk, promote healing, return to PLOF, decrease pain, and increase quality of life. Multi-Disciplinary Problems (from Occupational Therapy) Active Problems Problem: OT [facility] [place] Start Date: 11/02/23 Goal Start Date Expected End Date End Date OT [facility] [place] 11/02/23 11/09/23 -- Goal Details: 1) LE ADL SBA/MIN ASSIST WITH AE PRN. Goal Start Date Expected End Date End Date OT [facility] [place] 11[place]02[place]23 11/09/23 -- Goal Details: 2) FUNCTIONAL MOBILITY TO/FROM BATHROOM AND ALL ASPECTS TOILETING MODIFIED INDEP WITH DME. Goal Start Date Expected End Date End Date OT [facility] [place] 11/02/23 11/09/23 -- Goal Details: 3) STAND AT SINK X4 MIN FOR ADL WITH GOOD BALANCE. Goal Start Date Expected End Date End Date OT [facility] [place] 11/02/23 11/09/23 -- Goal Details: 4) PERFORM ITEM RETRIEVAL FROM HIGH/LOW POSITIONS WITH GOOD BALANCE/SAFETY. Goal Start Date Expected End Date End Date OT [facility] [place] 11/02/23 11/09/23 -- Goal Details: 5) PERFORM SIMULATED TUB/SHOWER TRANSFER TECHS WITH DME PRN. * Charlotte Bird MD - 11/02/2023 8:07 AM CDT .General Medicine Daily Progress Subjective Patient was seen and examined today, no acute overnight changes, remains afebrile with stable vitalsigns denies any new complaints Past Medical History: Diagnosis Date Anemia Arthritis CHF (congestive heart failure) (CMS/HCC) (HCC) Dementia (HCC) Depression Diabetic neuropathy (HCC) GERD (gastroesophageal reflux disease) HL (hearing loss) Hyperlipidemia Hypertension Movement disorder Osteomyelitis (HCC) Renal disorder Schizophrenia (HCC) Type 2 diabetes mellitus (HCC) Objective Vitals: 24hr Min/Max: Temp Min: 36.6 ??C (97.9 ??F) Max: 37.1 ??C (98.8 ??F) Pulse Min: 64 Max: 84 BP Min: 141/52 Max: 170/63 Resp Min: 16 Max: 20 SpO2 Min: 98 % Max: 100 % Most Recent : Vitals: 11/02/23 0700 BP: 156/64 Pulse: 64 Resp: 18 Temp: 36.7 ??C (98.1 ??F) SpO2: 99% I/O last 2 completed shifts: In: 360 [P.O.:360] Out: 300 [Urine:300] No intake/output data recorded. Physical Exam: .General alert and x2-3 Cardiovascular RRR, normal S1 and S2, no murmurs or gallops Respiratory, clear to auscultation bilaterally, no coarse sounds, wheezing, rales, not using accessory muscles, able to speak full sentences Abdominal nondistended, soft, normal bowel sounds, no rebound or guarding Extremities no edema, palpable pulses bilaterally Neurological alert and oriented x2-3, intact cranial nerve, intact sensation all extremities, intact muscle strength, very resting tremors, Lab/Radiology/Diagnostic Review: Laboratory review: Lab results in the last 12 hours: Recent Results (from the past 12 hour(s)) POCT glucose Collection Time: 11/01/23 8:40 PM Result Value Ref Range Glucose, POC 151 70 - 199 mg/dL Glucose comment 1 Use This Result CBC with auto differential Collection Time: 11/02/23 4:43 AM Result Value Ref Range WBC 9.4 3.8 - 9.9 K/cumm Hgb 8.7 (L) 11.9 - 15.5 g/dL Hct 27.2 (L) 35.6 - 45.5 % Plt 250 150 - 400 K/cumm MPV 10.5 9.1 - 12.3 fL RBC 2.83 (L) 3.90 - 5.20 M/cumm MCV 96.1 81.3 - 96.4 fL MCH 30.7 27.1 - 33.3 pg MCHC 32.0 (L) 32.3 - 35.7 g/dL RDW CV 13.5 11.1 - 14.9 % RDW SD 47.7 35.7 - 48.1 fL NRBC abs 0.00 0.00 - 0.01 K/cumm Basic metabolic panel Collection Time: 11/02/23 4:43 AM Result Value Ref Range Sodium 140 135 - 145 mmol/L Potassium, pl 4.6 3.3 - 4.9 mmol/L Chloride 106 97 - 110 mmol/L CO2 22 22 - 32 mmol/L Anion gap 12 2 - 15 mmol/L BUN 61 (H) 6 - 25 mg/dL Creatinine 5.20 (H) 0.60 - 1.10 mg/dL Glucose 127 70 - 199 mg/dL Calcium 8.7 8.5 - 10.3 mg/dL Differential, auto Collection Time: 11/02/23 4:43 AM Result Value Ref Range Neutrophil abs 6.1 1.5 - 6.5 K/cumm Imm gran abs 0.0 0.0 - 0.1 K/cumm Lymphocyte abs 2.5 0.8 - 3.3 K/cumm Monocyte abs 0.6 0.2 - 0.8 K/cumm Eosinophil abs 0.2 0.0 - 0.5 K/cumm Basophil abs 0.0 0.0 - 0.1 K/cumm Neutrophil pct 64.2 % Imm gran pct 0.2 % Lymphocyte pct 26.2 % Monocyte pct 6.8 % Eosinophil pct 2.3 % Basophil pct 0.3 % eGFR Collection Time: 11/02/23 4:43 AM Result Value Ref Range eGFR 8 (L) >=60 mL/min/1.73 m2 Recent Results (from the past 48 hour(s)) POCT glucose Collection Time: 10/31/23 6:06 PM Result Value Ref Range Glucose, POC 119 70 - 199 mg/dL Glucose comment 1 Use This Result POCT glucose Collection Time: 10/31/23 8:37 PM Result Value Ref Range Glucose, POC 74 70 - 199 mg/dL Drugs of Abuse Screen, Urine without Confirmation Collection Time: 10/31/23 10:34 PM Result Value Ref Range Amphetamine, ur Not Detected CutOff 500ng/mL Barbiturates, ur Not Detected CutOff 200ng/mL Benzodiazepines, ur Not Detected CutOff 100ng/mL Cannabinoids, ur Not Detected CutOff 50 ng/mL Cocaine, ur Not Detected CutOff 150ng/mL Fentanyl, Ur Not Detected Cutoff 1 ng/mL Methadone, ur Not Detected CutOff 300ng/mL Opiates, ur Not Detected CutOff 300ng/mL Oxycodone, ur Not Detected CutOff 100ng/mL Phencyclidine, ur Not Detected CutOff 25 ng/mL Urine Creatinine 157 mg/dL POCT glucose Collection Time: 10/31/23 10:45 PM Result Value Ref Range Glucose, POC 124 70 - 199 mg/dL CBC with auto differential Collection Time: 11/01/23 5:06 AM Result Value Ref Range WBC 13.4 (H) 3.8 - 9.9 K/cumm Hgb 8.8 (L) 11.9 - 15.5 g/dL Hct 27.3 (L) 35.6 - 45.5 % Plt 262 150 - 400 K/cumm MPV 10.8 9.1 - 12.3 fL RBC 2.88 (L) 3.90 - 5.20 M/cumm MCV 94.8 81.3 - 96.4 fL MCH 30.6 27.1 - 33.3 pg MCHC 32.2 (L) 32.3 - 35.7 g/dL RDW CV 13.5 11.1 - 14.9 % RDW SD 46.4 35.7 - 48.1 fL NRBC abs 0.00 0.00 - 0.01 K/cumm Basic metabolic panel Collection Time: 11/01/23 5:06 AM Result Value Ref Range Sodium 138 135 - 145 mmol/L Potassium, pl 4.1 3.3 - 4.9 mmol/L Chloride 102 97 - 110 mmol/L CO2 24 22 - 32 mmol/L Anion gap 12 2 - 15 mmol/L BUN 42 (H) 6 - 25 mg/dL Creatinine 4.10 (H) 0.60 - 1.10 mg/dL Glucose 177 70 - 199 mg/dL Calcium 8.4 (L) 8.5 - 10.3 mg/dL Differential, auto Collection Time: 11/01/23 5:06 AM Result Value Ref Range Neutrophil abs 9.2 (H) 1.5 - 6.5 K/cumm Imm gran abs 0.0 0.0 - 0.1 K/cumm Lymphocyte abs 3.2 0.8 - 3.3 K/cumm Monocyte abs 0.8 0.2 - 0.8 K/cumm Eosinophil abs 0.2 0.0 - 0.5 K/cumm Basophil abs 0.0 0.0 - 0.1 K/cumm Neutrophil pct 68.5 % Imm gran pct 0.3 % Lymphocyte pct 23.6 % Monocyte pct 5.8 % Eosinophil pct 1.5 % Basophil pct 0.3 % eGFR Collection Time: 11/01/23 5:06 AM Result Value Ref Range eGFR 11 (L) >=60 mL/min/1.73 m2 POCT glucose Collection Time: 11/01/23 8:16 AM Result Value Ref Range Glucose, POC 126 70 - 199 mg/dL Blood culture Blood Collection Time: 11/01/23 9:46 AM Specimen: Blood Result Value Ref Range Report Preliminary Report: No growth to date. Blood culture Blood Collection Time: 11/01/23 9:46 AM Specimen: Blood Result Value Ref Range Report Preliminary Report: No growth to date. POCT glucose Collection Time: 11/01/23 11:26 AM Result Value Ref Range Glucose, POC 171 70 - 199 mg/dL Glucose comment 1 Use This Result POCT glucose Collection Time: 11/01/23 8:40 PM Result Value Ref Range Glucose, POC 151 70 - 199 mg/dL Glucose comment 1 Use This Result CBC with auto differential Collection Time: 11/02/23 4:43 AM Result Value Ref Range WBC 9.4 3.8 - 9.9 K/cumm Hgb 8.7 (L) 11.9 - 15.5 g/dL Hct 27.2 (L) 35.6 - 45.5 % Plt 250 150 - 400 K/cumm MPV 10.5 9.1 - 12.3 fL RBC 2.83 (L) 3.90 - 5.20 M/cumm MCV 96.1 81.3 - 96.4 fL MCH 30.7 27.1 - 33.3 pg MCHC 32.0 (L) 32.3 - 35.7 g/dL RDW CV 13.5 11.1 - 14.9 % RDW SD 47.7 35.7 - 48.1 fL NRBC abs 0.00 0.00 - 0.01 K/cumm Basic metabolic panel Collection Time: 11/02/23 4:43 AM Result Value Ref Range Sodium 140 135 - 145 mmol/L Potassium, pl 4.6 3.3 - 4.9 mmol/L Chloride 106 97 - 110 mmol/L CO2 22 22 - 32 mmol/L Anion gap 12 2 - 15 mmol/L BUN 61 (H) 6 - 25 mg/dL Creatinine 5.20 (H) 0.60 - 1.10 mg/dL Glucose 127 70 - 199 mg/dL Calcium 8.7 8.5 - 10.3 mg/dL Differential, auto Collection Time: 11/02/23 4:43 AM Result Value Ref Range Neutrophil abs 6.1 1.5 - 6.5 K/cumm Imm gran abs 0.0 0.0 - 0.1 K/cumm Lymphocyte abs 2.5 0.8 - 3.3 K/cumm Monocyte abs 0.6 0.2 - 0.8 K/cumm Eosinophil abs 0.2 0.0 - 0.5 K/cumm Basophil abs 0.0 0.0 - 0.1 K/cumm Neutrophil pct 64.2 % Imm gran pct 0.2 % Lymphocyte pct 26.2 % Monocyte pct 6.8 % Eosinophil pct 2.3 % Basophil pct 0.3 % eGFR Collection Time: 11/02/23 4:43 AM Result Value Ref Range eGFR 8 (L) >=60 mL/min/1.73 m2 Transthoracic Echo (TTE) Complete W Doppler/CF Result Date: 10/30/2023 Narrative: Adult Echocardiogram + + :Name: SIXTO CHAKRABORTY Study Date: 10/30/2023 Status: MHE : : [id number]^MHeight: 62 in : : Weight: 136 lbBP: 154/62 mmHg: :: 1950 Gender: Female BSA: 1.6 m2 : :Reason For Study: TIA, initial exam : :Ordering Physician: : :LUCIANO JENKINS : : : :Performed By: Juju : :SHEA Cheema : + + Procedure A two-dimensional transthoracic echocardiogram with color flow and Doppler was performed. A saline contrast injection was performed to assess for cardiac shunting. Left Ventricle The left ventricle is normal in size. There is mild concentric left ventricular hypertrop hy. Ejection Fraction = 60-65%. Left ventricular systolic function is normal. Right Ventricle The right ventricle is normal in size and function. Atria The left atrial size is normal. Right atrial size is normal. A bubble study shows no evidence of intracardiac qyyjo-ky-qonz shunting, i.e. no patent foramen ovale (PFO). Mitral Valve There is no mitral valve stenosis. There is trace mitral regurgitation. Tricuspid Valve There is trace tricuspid regurgitation. Right ventricular systolic pressure is normal. Aortic Valve The aortic valve opens well. The aortic valve is trileaflet. No aortic stenosis . Trace aortic regurgitation. Pulmonic Valve Trace pulmonic valvular regurgitation. Great Vessels The aortic root is normal size. IVC appears normal in size. IVC collapses normally with inspiration. Normal right heart pressures. Pericardium Trace pericardial effusion. Diastology Grade I diastolic dysfunction, (abnormal relaxation pattern). Interpretation Summary The left ventricle is normal insize. There is mild concentric left ventricular hypertrophy. Ejection Fraction = 60- 65%. Left ventricular systolic function is normal. Grade I diastolic dysfunction, (abnormal relaxation pattern). A bubble study shows no evidence of intracardiac sfdzw-yr-bzvj shunting, i.e. no patent foramen ovale (PFO). Trace aortic regurgitation. + + :Measurements with Normals : : (0.6-1.2 LVIDd: (3.5-5.7 Ao root diam: (2.0-3.7 : :IVSd: 1.4 cmcm) 3.6 cm cm) 2.5 cm cm) : :LVPWd: (0.6-1.1 LVIDs: (3.1-4.6 LA dimension: (1.9-4.0 : :1.3 cm cm) 1.7 cm cm) 3.9 cm cm) : + + MMode/2D Measurements & Calculations FS: 51.7 % Ao root area: LVOT diam: 1.9 cm LVLd ap4: 8.2 cm EDV(Teich): 53.7 ml 4.9 cm2 LVOT area: EDV(MOD-sp4): ESV(Teich): 8.8 ml 2.8 cm2 52.4 ml LVLs ap4: 6.5 cm ESV(MOD-sp4): 19.9 ml EF(MOD-sp4): 62.0 % SV(MOD-sp4): EF (BP): 62.2 % 32.5 ml Doppler Measurements & CalculationsMV A dur: 0.12 sec MV V2 max: MV dec time: Ao V2 max: MV E max leonard: 110.0 cm/sec 0.24 sec 158.0 cm/sec 88.3 cm/sec MV max PG: Ao max PG: MV A max leonard: 4.8 mmHg 10.0 mmHg 101.0 cm/sec MV V2 mean: AoV2 mean: MV E/A: 0.87 66.3 cm/sec 111.0 cm/sec MV mean PG: Ao mean P.0 mmHg 5.0 mmHg MV V2 VTI: 32.9 cm Ao V2 VTI: 36.6 cm MVA(VTI): 2.2 cm2 ALEXEY(I,D): 2.0 cm2 ALEXEY(V,D): 2.0 cm2 LV V1 max PG: SV(LVOT): 72.6 ml TV V2 max: PA V2 max: 5.2 mmHg 49.0 cm/sec 142.0 cm/sec LV V1 mean PG: TV max PG: PA max P.1 mmHg 2.0 mmHg 0.96 mmHg LV V1 max: 114.0 cm/sec LV V1 mean: 72.5 cm/sec LV V1 VTI: 25.6 cm PI end-d leonard: RV V1 max: TR max leonard: RAP systole: 70.6 cm/sec 117.0cm/sec 169.0 cm/sec 3.0 mmHg TR max P.4 mmHg RVSP(TR): 14.4 mmHg Pulm Sys Leonard: 70.3 cm/sec Pulm De Los Santos Leonard: 43.2 cm/sec Pulm A RevsVel: 32.5 cm/sec Pulm A Revs Dur: 0.10 sec Pulm S/D: 1.6 Electronically signed by: Portillo Hernandez MD 10/30/2023 10:31 AM MRI Brain WO Contrast Result Date: 10/30/2023 Narrative: EXAM DESCRIPTION: MRI BRAIN WO CONTRAST REASON [...] Images stored on PACS. COMPARISON: 10/29/2023 head CTFINDINGS: CEREBRUM: No hemorrhage, edema, or mass effect. Unremarkable ventricles WHITE MATTER: There is moderate periventricular and pontine T2/FLAIR hyperintense white matter disease, nonspecific, though likely secondary to chronic microvascular ischemia. POSTERIOR FOSSA: Brainstem and cerebellumappear unremarkable. DIFFUSION IMAGING: There is a small focus of diffusion weighted hyperintensityin the posterior right temporal lobe with mild associated ADC hypointensity. This is compatible with an acute to subacute infarction. There is mild associated FLAIR signal hyperintensity. EXTRAAXIAL SPACES: No hemorrhage. No mass. BRAIN VOLUME: Within normal limits for age. PITUITARY: Unremarkable.VASCULATURE: No flow disturbance identified. ORBITS: No masses. [...] microvascular ischemia. Upper cervical degenerative disc disease withat least moderate spinal canal stenosis at C3-C4, poorly assessed on the current protocol. This could be further assessed with cervical spine MRI. Bilateral mastoid effusions THIS IS AN ELECTRONICALLY VERIFIED FINAL REPORT 10/30/2023 8:29 AM - Electronically signed by James Javier M.D. MZ: VALENTINA Report ID: [id number] Reading Location: [id number] CT Head WO Contrast Result Date: 10/29/2023 Narrative: EXAM DESCRIPTION: CT HEAD WO CONTRAST REASON FOR STUDY: Mental status change, unknown cause TECHNIQUE: Axial images acquired through the brain without intravenous contrast. Images stored on PACS. Automated exposure control was used as a dose optimization technique for this examination. COMPARISON: 10/11/2023. FINDINGS: BRAIN: Ventricles, cisterns and sulci are symmetric and normal in size and configuration. There are moderate confluent and patchy areas of hypodensity in the periventricular, subcortical and deep white matter as evidence for chronic microvascular angiopathy, similar to prior exam. No intracranial hemorrhage is evident. EXTRA-AXIAL SPACES: No fluid collections. No mass effect. CALVARIUM: Appears intact. Hyperostosis frontalis interna incidentally noted. SINUSES/MASTOIDS: There is a large right mastoid effusion and small to moderate left mastoid effusion, similarto prior exam. ORBITS: No significant abnormality. OTHER: No other significant abnormality. IMPRESSION: No acute intracranial findings. Moderate chronic microvascular angiopathy, similar to prior exam. Large right mastoid effusion and small to moderate left mastoid effusion, similar to prior exam. THIS IS AN ELECTRONICALLY VERIFIED FINAL REPORT 10/29/2023 8:34 PM - Electronically signed by Larry Vail M.D., D.OJeff Cormier M.D..OJonel MW: KLEVER Report ID: [id number] Reading Location: [id number] XR Chest 1 Vw Portable Result Date: 10/29/2023 Narrative: EXAM DESCRIPTION: XR CHEST 1 VIEW REASON FOR STUDY: general weakness Pt brought in by EMS from dialysis for tremors. TECHNIQUE: Single radiographic view(s) of the chest. COMPARISON: 10/10/2023 FINDINGS: LUNGS: No focal consolidation or definite pleural effusion. No pneumothorax. HEART/MEDIASTINUM: Stable cardiomediastinal contour. LINES/TUBES: Right IJ central venous catheter with the tip in the distal SVC. BONES: No acute osseous abnormality. IMPRESSION: No acute cardiopulmonary abnormality. THIS IS AN ELECTRONICALLY VERIFIED FINAL REPORT 10/29/2023 6:21 PM - Electronically signed by Navneet Enriquez M.D. AG: TON Report ID: [id number] Reading Location: [id number] IR Tunneled CVC > 5 Years Result Date: 10/16/2023 Narrative: EXAMINATION: IR TUNNELED LINE PLACEMENT > 5 YEARS Date: 10/15/2023 8:30 AM History: End-stage renal disease Fluoroscopy time: 0.01 minutes. Technique: The risks, benefits, and alternatives were discussed and informed consent was obtained. Prior to beginning the procedure, universal protocol was performed to confirm the patient's identity and the planned procedure. Maximum sterile barriers including cap, mask, hand hygiene, sterile gloves, sterile gown, large sterile drape, sterile gel, sterile ultrasound probe cover, and 2% chlorhexidine for cutaneous antisepsis were used. Prior to the procedure, the right internal jugular vein was evaluated by real-time ultrasound which demonst rated patency of the target vessel and an image of the PATENT VESSEL was recorded in the patient's electronic medical record. The skin over this vein was sterilely prepped, draped, and infiltrated with 1% lidocaine. This vein was then accessed with a 21-gauge needle using real-time ultrasound guidance for needle placement. A guidewire was passed centrally using fluoroscopic guidance. The intravascular length from the access site to the right atrium was assessed. After infiltrating the skin in the subclavicular region with 1% lidocaine, a short transverse incision was made and the 24 Duramax catheter was tunneled to the internal jugular vein access site and inserted through a peel-away sheath. The peel-away sheath was then removed. The catheter was flushed with heparin and secured in place. The incision in the lower neck was closed using 4-0 Monocryl. A sterile dressing was applied. Findings: The final fluoroscopic image demonstrates the catheter with its tip cavoatrial junction. No complications were identified. Impression: Successful tunneled catheter placement, as described above. Plan: The catheter is readyfor immediate use. When treatment is completed, removal can be scheduled by calling [facility] at [phone]. Electronically signed by: Marcus Mcdonald M.D. CT Head WO Contrast Result Date: 10/11/2023 Narrative: EXAMINATION: CT HEAD WO CONTRAST DATE: 10/11/2023 10:05 AM HISTORY: Mental status change.COMPARISON: None. TECHNIQUE: Transaxial computed tomographic images of the head were obtained without intravenous contrast. FINDINGS: No mass, mass effect, midline shift, or hemorrhage is demonstrated. Scattered hypodensities are noted throughout the white matter consistent with chronic microvascular ischemic changes. The orbits and paranasal sinuses are normal in appearance. Extracalvarial soft tissues are unremarkable. Bilateral mastoid effusions, right greater than left. Impression: 1. No acute intracranial findings. 2. Scattered hypodensities compatible with chronic microvascular ischemic changes. 3. Bilateral mastoid effusions, right greater than left. Electronically signed by: Phil Pete II, D.O. XR Chest 1 View Result Date: 10/11/2023 Narrative: EXAMINATION: XR CHEST 1 VIEW DATE: 10/10/2023 4:50 PM INDICATION: CHF follow-up. COMPARISON: 07/28/2023. Impression: FINDINGS/IMPRESSION: No pneumothorax or pleural effusion. Mild pulmonary vascular congestion. No cardiomegaly. No acute osseous abnormality. Electronically signed by: Phil Pete II, D.O. ECG 12 lead Result Date: 10/07/2023 Narrative: Vent Rate: 74 bpm RR Interval: 801 msec SC Interval: 163 msec QRS Duration: 72 msec QT Interval: 389 msec QTC Interval: 417 msec P-R-T Spangler: 62 - 20 - 207 degrees IMPRESSION: SINUS RHYTHM NONSPECIFIC T-WAVE ABNORMALITY Electronically Signed By: Ilan Ghotra MD, [facility] No results found for the last 90 days. Current Facility-Administered Medications Medication Dose Route Frequency Provider Last Rate Last Admin acetaminophen (TYLENOL) tablet 650 mg 650 mg oral Q4H PRN Luciano Jenkins MD Or acetaminophen (TYLENOL) 32 mg/mL oral liquid 650 mg 650 mg feeding tube Q4H PRN Luciano Jenkins MD Or acetaminophen (TYLENOL) suppository 650 mg 650 mg rectal Q4H PRN Luciano Jenkins MD aspirin enteric coated tablet 81 mg 81 mg oral Daily Luciano Jenkins MD 81 mg at atorvastatin (LIPITOR) tablet 20 mg 20 mg oral Nightly Aylin Kauffman MD 20 mg at 10/30/232048 benzonatate (TESSALON) capsule 100 mg 100 mg oral TID PRN Luciano Jenkins MD dextrose (GLUTOSE) 40 % gel 15 g 15 g oral Q15 Min PRN Luciano Jenkins MD Or dextrose (D10W) 10% bolus 250 mL 250 mL intravenous Q15 Min PRN Luciano Jenkins MD famotidine (PEPCID) tablet 10 mg 10 mg oral Daily Aylin Kauffman MD 10 mg at 10/30/23 1203 fluticasone propionate (FLONASE) 50 mcg/actuation nasal spray 2 spray 2 spray each nostril Daily Aylin Kauffman MD 2 spray at 10/30/23 1440 glucagon injection 1 mg 1 mg intramuscular Q30 Min PRN Luciano Jenkins MD heparin 1,000 unit/mL injection 1.5-6.9 mL 1.5-6.9 mL intra-catheter PRN Markie Ryan MD heparin 1,000 unit/mL injection 500 Units 500 Units dialysis circuit PRN Markie Ryna MD heparin 5,000 unit/mL injection 5,000 Units 5,000 Units subcutaneous Q8H [facility] Luciano Jenkins MD 5,000 Units at 10/31/23 050 insulin glargine (LANTUS, SEMGLEE) 100 unit/mL injection 16 Units 0.25 Units/kg subcutaneous Nightly Aylin Kauffman MD 16 Units at 10/30/232048 insulin lispro (HumaLOG, ADMELOG) 100 unit/mL injection 0-10 Units 0-10 Units subcutaneous TID withmeals Luciano Jenkins MD 4 Units at 10/30/23 130 insulin lispro (HumaLOG, ADMELOG) 100 unit/mL injection 0-5 Units 0-5 Units subcutaneous Nightly Luciano Jenkins MD 1 Units at 10/30/232049 insulin lispro (HumaLOG, ADMELOG) 100 unit/mL injection 5 Units 0.083 Units/kg subcutaneous TID with meals Luciano Jenkins MD 5 Units at 10/30/231757 metoprolol tartrate (LOPRESSOR) immediate release split tablet 6.25 mg 6.25 mg oral BID Aylin Kauffman MD 6.25 mg at 10/30/232048 polyethylene glycol (MIRALAX) packet 17 g 17 g oral Daily PRN Luciano Jenkins MD ramelteon (ROZEREM) tablet 8 mg 8 mg oral Nightly PRN Aylin Kauffman MD Assessment/Plan Principal Problem: Altered mental status, unspecified altered mental status type Active Problems: AMS (altered mental status) ESRD (end stage renal disease) on dialysis (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 Presented with altered mental status and episode of hypotension during dialysis was found to have small acute to subacute infarct in the posterior right temporal lobe. # Acute metabolic encephalopathy with underlying dementia-resolved, patient back her baseline #Small acute to subacute infarct in the posterior right temporal lobe. MRI done today suggestive of small infarct in right temporal lobe On aspirin 81 mg daily, atorvastatin 40 mg daily Carotid Doppler with less than 50% proximal ICA stenosis Neurology consult: Discussed Dr. Buckley EEG Generalized slowing suggests diffuse cerebral dysfunction, as can be seen encephalopathy due tovarious etiologies. No focal slowing no seizure like activity was observed. # history of schizophrenia: # history of possible drug-induced parkinsonism symptoms -psychiatry on consult: Recommend restarting Risperdal 1mg nightly for mood. Restart Cogentin at 1mg nightly for tremor symptoms. Will restart at lower dose as Cogentin can contribute to confusion. May consider increasing back to 1.5mg qHS if needed (patient's home dose). Recommend Rozerem 8mg nightly prn for sleep. On risperidone 1 mg Q nightly and benztropine 1 q.day # leukocytosis-resolved - Patient remains afebrile with no new complaint - CXR on 10/28 with no evidence of pneumonia/infection -UA on 10/28 with no evidence of UTI -uptrending WBC Blood culture NGTD # ESRD on hemodialysis: -on dialysis Thursday//Thursday -nephrology on consult appreciate recommendations # Diabetes mellitus with hyperglycemia/diabetic nephropathy - Accu-Chek with dialysis # hypertension #labile BP Possible underlying autonomic dysfunction Continue small dose of metoprolol tartrate 6.25 mg b.i.d. #anemia of chronic disease Stable hemoglobin DVT prophylaxis: Heparin subQ Code status: Full Code I personally discussed plan with patient, patient's daughter via phone, consultants and house staff Pending SNF placement * Kori Isabel RN - 11/02/2023 12:53 AM CDT At 0058 [facility] entered a follow up video consult, which has a median time of FOUR hours to be completed into the [employer]. Pause till 0700 Reason for consult: Follow-up/Re-evaluation [facility] staff will be contacting [facility] at 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: [phone]. Psychiatrist will use this number to start video assessment as well. Please have equipment charged and ready. Device ID given to [facility] is: [employer] iPad [id number]. [employer] [facility] will monitor consult timeframe and contact [facility] as necessary. For inpatient or routine ED follow-up consults, the request is paused until 0700 if entered after 2300. Behavioral Health Navigator messaged with Masha ALY at [facility] and updated them on status. Thank you for the opportunity to participate in this patient's care. Kori Isabel RN, [facility] Behavioral Health Integration Team [phone] * Maddie Lepe PTA - 11/01/2023 10:01 AM CDT Physical Therapy 11/01/23 1001 PT Last Visit Session Type Treatment PT Received On 11/01/23 Safe Environment Arm band checked;Patient found sitting at edge of bed Subjective Agreeable to Therapy Subjective Comment My legs feel stiff Pain Assessment Pain Assessment No/denies pain Cognition Orientation Oriented to person;Oriented to place Transfer 1 Transfer From 1 Bed Transfer Type 1 To Transfer to 1 Chair with arms Technique 1 Sit to stand;Stand to sit Transfer Device 1 Wheeled walker Transfer Level of Assistance 1 Contact Guard Assist Trials/Comments 1 Verbal cues for hand placement Ambulation 1 Distance (ft) 1 90 Surface 1 Level tile Device 1 Wheeled walker Assistance 1 Contact Guard Assist Gait: Requires assist with 1 Maintaining balance Gait: Requires verbal cues to 1 Increase step length;Increase base of support Gait Deviations 1 Brigid - decreased;Base of support - decreased;Step length - decreased Quality of Gait 1 good Ambulation Comments 1 Pt ambulates well with no LOB Safe Environment End of Therapy Session Safe Environment End of Therapy Session Patient left in recliner;Chair alarm in place and activated;Call light within reach;Overbed table within reach Assessment Prognosis Good Recommendation/Plan PT Recommendation/Plan Home with 24 hour supervision;Home Health PT;Home Health OT Multi-Disciplinary Problems (from Physical Therapy) Active Problems Problem: Mobility Start Date: 10/30/23 Goal Start Date Expected End Date End Date LTG - Patient will demonstrate functional mobility with the following level of assist: 10/30/23 11/13/23 -- Goal Details: Pt will transfer and ambulate 50 feet, w walker, cga of 1, - [employer] Utilized: NO Educated the patient to the role of physical therapy, plan of care, goals of therapy, rationale forprogressing mobility. Patient was left with all needs met and equipment intact. Mobility and ADL status posted at bedsideand within medical record. * Charlotte Bird MD - 11/01/2023 8:10 AM CDT .General Medicine Daily Progress Subjective Patient was seen examined today, no acute overnight changes, remains afebrile with stable vital signs, denies any acute complaints Past Medical History: Diagnosis Date Anemia Arthritis CHF (congestive heart failure) (CMS/HCC) (HCC) Dementia (HCC) Depression Diabetic neuropathy (HCC) GERD (gastroesophageal reflux disease) HL (hearing loss) Hyperlipidemia Hypertension Movement disorder Osteomyelitis (HCC) Renal disorder Schizophrenia (HCC) Type 2 diabetes mellitus (HCC) Objective Vitals: 24hr Min/Max: Temp Min: 36.5 ??C (97.7 ??F) Max: 36.9 ??C (98.4 ??F) Pulse Min: 66 Max: 80 BP Min: 105/56 Max: 177/71 Resp Min: 16 Max: 18 SpO2 Min: 93 % Max: 100 % Most Recent : Vitals: 11/01/23 0252 BP: 149/54 Pulse: 71 Resp: 18 Temp: 36.8 ??C (98.2 ??F) SpO2: 93% I/O last 2 completed shifts: In: 990 [P.O.:240; I.V.:250; Other:500] Out: 1600 [Urine:100; Other:1500] No intake/output data recorded. Physical Exam: .General alert and x3 Cardiovascular RRR, normal S1 and S2, no murmurs or gallops Respiratory, clear to auscultation bilaterally, no coarse sounds, wheezing, rales, not using accessory muscles, able to speak full sentences Abdominal nondistended, soft, normal bowel sounds, no rebound or guarding Extremities no edema, palpable pulses bilaterally Neurological alert and oriented x3, intact cranial nerve, intact sensation all extremities, intact muscle strength, very resting tremors, Lab/Radiology/Diagnostic Review: Laboratory review: Lab results in the last 12 hours: Recent Results (from the past 12 hour(s)) POCT glucose Collection Time: 10/31/23 8:37 PM Result Value Ref Range Glucose, POC 74 70 - 199 mg/dL Drugs of Abuse Screen, Urine without Confirmation Collection Time: 10/31/23 10:34 PM Result Value Ref Range Amphetamine, ur Not Detected CutOff 500ng/mL Barbiturates, ur Not Detected CutOff 200ng/mL Benzodiazepines, ur Not Detected CutOff 100ng/mL Cannabinoids, ur Not Detected CutOff 50 ng/mL Cocaine, ur Not Detected CutOff 150ng/mL Fentanyl, Ur Not Detected Cutoff 1 ng/mL Methadone, ur Not Detected CutOff 300ng/mL Opiates, ur Not Detected CutOff 300ng/mL Oxycodone, ur Not Detected CutOff 100ng/mL Phencyclidine, ur Not Detected CutOff 25 ng/mL Urine Creatinine 157 mg/dL POCT glucose Collection Time: 10/31/23 10:45 PM Result Value Ref Range Glucose, POC 124 70 - 199 mg/dL CBC with auto differential Collection Time: 11/01/23 5:06 AM Result Value Ref Range WBC 13.4 (H) 3.8 - 9.9 K/cumm Hgb 8.8 (L) 11.9 - 15.5 g/dL Hct 27.3 (L) 35.6 - 45.5 % Plt 262 150 - 400 K/cumm MPV 10.8 9.1 - 12.3 fL RBC 2.88 (L) 3.90 - 5.20 M/cumm MCV 94.8 81.3 - 96.4 fL MCH 30.6 27.1 - 33.3 pg MCHC 32.2 (L) 32.3 - 35.7 g/dL RDW CV 13.5 11.1 - 14.9 % RDW SD 46.4 35.7 - 48.1 fL NRBC abs 0.00 0.00 - 0.01 K/cumm Basic metabolic panel Collection Time: 11/01/23 5:06 AM Result Value Ref Range Sodium 138 135 - 145 mmol/L Potassium, pl 4.1 3.3 - 4.9 mmol/L Chloride 102 97 - 110 mmol/L CO2 24 22 - 32 mmol/L Anion gap 12 2 - 15 mmol/L BUN 42 (H) 6 - 25 mg/dL Creatinine 4.10 (H) 0.60 - 1.10 mg/dL Glucose 177 70 - 199 mg/dL Calcium 8.4 (L) 8.5 - 10.3 mg/dL Differential, auto Collection Time: 11/01/23 5:06 AM Result Value Ref Range Neutrophil abs 9.2 (H) 1.5 - 6.5 K/cumm Imm gran abs 0.0 0.0 - 0.1 K/cumm Lymphocyte abs 3.2 0.8 - 3.3 K/cumm Monocyte abs 0.8 0.2 - 0.8 K/cumm Eosinophil abs 0.2 0.0 - 0.5 K/cumm Basophil abs 0.0 0.0 - 0.1 K/cumm Neutrophil pct 68.5 % Imm gran pct 0.3 % Lymphocyte pct 23.6 % Monocyte pct 5.8 % Eosinophil pct 1.5 % Basophil pct 0.3 % eGFR Collection Time: 11/01/23 5:06 AM Result Value Ref Range eGFR 11 (L) >=60 mL/min/1.73 m2 Recent Results (from the past 48 hour(s)) ECG 12 lead Collection Time: 10/30/23 9:14 AM Result Value Ref Range Ventricular Rate EKG/Min 72 BPM Atrial Rate 72 BPM SC-Interval (MSEC) 146 ms QRS-Interval (MSEC) 64 ms QT-Interval (MSEC) 428 ms QTc 468 ms P Spangler 80 degrees R Spangler 7 degrees T Spangler 80 degrees Diagnosis Normal sinus rhythm Normal ECG When compared with ECG of 29-OCT-2023 18:04, No significant change was found Confirmed by DON DILLON M.D. ([id number]) on 10/31/2023 7:24:36 PM POCT glucose Collection Time: 10/30/23 9:39 AM Result Value Ref Range Glucose, POC 143 70 - 199 mg/dL Glucose comment 1 Use This Result Glucose comment 2 RN/MD Notified Influenza A/B, RSV, and COVID-19 PCR Nasopharyngeal Collection Time: 10/30/23 10:08 AM Specimen: Nasopharyngeal Result Value Ref Range COVID-19 RNA Negative Negative Influenza A RNA Negative Negative Influenza B RNA Negative Negative RSV RNA Negative Negative POCT glucose Collection Time: 10/30/23 11:24 AM Result Value Ref Range Glucose, POC 209 (H) 70 - 199 mg/dL Glucose comment 1 Use This Result Glucose comment 2 RN/MD Notified POCT glucose Collection Time: 10/30/23 12:56 PM Result Value Ref Range Glucose, POC 213 (H) 70 - 199 mg/dL POCT glucose Collection Time: 10/30/23 5:39 PM Result Value Ref Range Glucose, POC 134 70 - 199 mg/dL Glucose comment 1 Use This Result POCT glucose Collection Time: 10/30/23 8:29 PM Result Value Ref Range Glucose, POC 176 70 - 199 mg/dL CBC with auto differential Collection Time: 10/31/23 4:51 AM Result Value Ref Range WBC 10.1 (H) 3.8 - 9.9 K/cumm Hgb 8.3 (L) 11.9 - 15.5 g/dL Hct 25.9 (L) 35.6 - 45.5 % Plt 242 150 - 400 K/cumm MPV 10.4 9.1 - 12.3 fL RBC 2.75 (L) 3.90 - 5.20 M/cumm MCV 94.2 81.3 - 96.4 fL MCH 30.2 27.1 - 33.3 pg MCHC 32.0 (L) 32.3 - 35.7 g/dL RDW CV 13.6 11.1 - 14.9 % RDW SD 47.0 35.7 - 48.1 fL NRBC abs 0.00 0.00 - 0.01 K/cumm Basic metabolic panel Collection Time: 10/31/23 4:51 AM Result Value Ref Range Sodium 141 135 - 145 mmol/L Potassium, pl 4.7 3.3 - 4.9 mmol/L Chloride 108 97 - 110 mmol/L CO2 22 22 - 32 mmol/L Anion gap 11 2 - 15 mmol/L BUN 44 (H) 6 - 25 mg/dL Creatinine 4.00 (H) 0.60 - 1.10 mg/dL Glucose 97 70 - 199 mg/dL Calcium 8.6 8.5 - 10.3 mg/dL Differential, auto Collection Time: 10/31/23 4:51 AM Result Value Ref Range Neutrophil abs 5.3 1.5 - 6.5 K/cumm Imm gran abs 0.0 0.0 - 0.1 K/cumm Lymphocyte abs 3.9 (H) 0.8 - 3.3 K/cumm Monocyte abs 0.6 0.2 - 0.8 K/cumm Eosinophil abs 0.2 0.0 - 0.5 K/cumm Basophil abs 0.0 0.0 - 0.1 K/cumm Neutrophil pct 53.0 % Imm gran pct 0.4 % Lymphocyte pct 38.3 % Monocyte pct 5.6 % Eosinophil pct 2.4 % Basophil pct 0.3 % eGFR Collection Time: 10/31/23 4:51 AM Result Value Ref Range eGFR 11 (L) >=60 mL/min/1.73 m2 POCT glucose Collection Time: 10/31/23 7:21 AM Result Value Ref Range Glucose, POC 90 70 - 199 mg/dL Glucose comment 1 Use This Result POCT glucose Collection Time: 10/31/23 6:06 PM Result Value Ref Range Glucose, POC 119 70 - 199 mg/dL Glucose comment 1 Use This Result POCT glucose Collection Time: 10/31/23 8:37 PM Result Value Ref Range Glucose, POC 74 70 - 199 mg/dL Drugs of Abuse Screen, Urine without Confirmation Collection Time: 10/31/23 10:34 PM Result Value Ref Range Amphetamine, ur Not Detected CutOff 500ng/mL Barbiturates, ur Not Detected CutOff 200ng/mL Benzodiazepines, ur Not Detected CutOff 100ng/mL Cannabinoids, ur Not Detected CutOff 50 ng/mL Cocaine, ur Not Detected CutOff 150ng/mL Fentanyl, Ur Not Detected Cutoff 1 ng/mL Methadone, ur Not Detected CutOff 300ng/mL Opiates, ur Not Detected CutOff 300ng/mL Oxycodone, ur Not Detected CutOff 100ng/mL Phencyclidine, ur Not Detected CutOff 25 ng/mL Urine Creatinine 157 mg/dL POCT glucose Collection Time: 10/31/23 10:45 PM Result Value Ref Range Glucose, POC 124 70 - 199 mg/dL CBC with auto differential Collection Time: 11/01/23 5:06 AM Result Value Ref Range WBC 13.4 (H) 3.8 - 9.9 K/cumm Hgb 8.8 (L) 11.9 - 15.5 g/dL Hct 27.3 (L) 35.6 - 45.5 % Plt 262 150 - 400 K/cumm MPV 10.8 9.1 - 12.3 fL RBC 2.88 (L) 3.90 - 5.20 M/cumm MCV 94.8 81.3 - 96.4 fL MCH 30.6 27.1 - 33.3 pg MCHC 32.2 (L) 32.3 - 35.7 g/dL RDW CV 13.5 11.1 - 14.9 % RDW SD 46.4 35.7 - 48.1 fL NRBC abs 0.00 0.00 - 0.01 K/cumm Basic metabolic panel Collection Time: 11/01/23 5:06 AM Result Value Ref Range Sodium 138 135 - 145 mmol/L Potassium, pl 4.1 3.3 - 4.9 mmol/L Chloride 102 97 - 110 mmol/L CO2 24 22 - 32 mmol/L Anion gap 12 2 - 15 mmol/L BUN 42 (H) 6 - 25 mg/dL Creatinine 4.10 (H) 0.60 - 1.10 mg/dL Glucose 177 70 - 199 mg/dL Calcium 8.4 (L) 8.5 - 10.3 mg/dL Differential, auto Collection Time: 11/01/23 5:06 AM Result Value Ref Range Neutrophil abs 9.2 (H) 1.5 - 6.5 K/cumm Imm gran abs 0.0 0.0 - 0.1 K/cumm Lymphocyte abs 3.2 0.8 - 3.3 K/cumm Monocyte abs 0.8 0.2 - 0.8 K/cumm Eosinophil abs 0.2 0.0 - 0.5 K/cumm Basophil abs 0.0 0.0 - 0.1 K/cumm Neutrophil pct 68.5 % Imm gran pct 0.3 % Lymphocyte pct 23.6 % Monocyte pct 5.8 % Eosinophil pct 1.5 % Basophil pct 0.3 % eGFR Collection Time: 11/01/23 5:06 AM Result Value Ref Range eGFR 11 (L) >=60 mL/min/1.73 m2 Transthoracic Echo (TTE) Complete W Doppler/CF Result Date: 10/30/2023 Narrative: Adult Echocardiogram + + :Name: SIXTO CHAKRABORTY Study Date: 10/30/2023 Status: E : : Patient Location: [address]^[id number]^eit: 62 in : : Weight: 136 lbBP: 154/62 mmHg: :: 1950 Gender: Female BSA: 1.6 m2 : :Reason For Study: TIA, initial exam : :Ordering Physician: : :LUCIANO JENKINS : : : :Performed By: Juju : :SHEA Cheema : + + Procedure A two-dimensional transthoracic echocardiogram with color flow and Doppler was performed. A saline contrast injection was performed to assess for cardiac shunting. Left Ventricle The left ventricle is normal in size. There is mild concentric left ventricular hypertrop hy. Ejection Fraction = 60-65%. Left ventricular systolic function is normal. Right Ventricle The right ventricle is normal in size and function. Atria The left atrial size is normal. Right atrial size is normal. A bubble study shows no evidence of intracardiac [id number]-djmt shunting, i.e. no patent foramen ovale (PFO). Mitral Valve There is no mitral valve stenosis. There is trace mitral regurgitation. Tricuspid Valve There is trace tricuspid regurgitation. Right ventricular systolic pressure is normal. Aortic Valve The aortic valve opens well. The aortic valve is trileaflet. No aortic stenosis . Trace aortic regurgitation. Pulmonic Valve Trace pulmonic valvular regurgitation. Great Vessels The aortic root is normal size. IVC appears normal in size. IVC collapses normally with inspiration. Normal right heart pressures. Pericardium Trace pericardial effusion. Diastology Grade I diastolic dysfunction, (abnormal relaxation pattern). Interpretation Summary The left ventricle is normal insize. There is mild concentric left ventricular hypertrophy. Ejection Fraction = 60- 65%. Left ventricular systolic function is normal. Grade I diastolic dysfunction, (abnormal relaxation pattern). A bubble study shows no evidence of intracardiac adiui-ps-tyba shunting, i.e. no patent foramen ovale (PFO). Trace aortic regurgitation. + + :Measurements with Normals : : (0.6-1.2 LVIDd: (3.5-5.7 Ao root diam: (2.0-3.7 : :IVSd: 1.4 cmcm) 3.6 cm cm) 2.5 cm cm) : :LVPWd: (0.6-1.1 LVIDs: (3.1-4.6 LA dimension: (1.9-4.0 : :1.3 cm cm) 1.7 cm cm) 3.9 cm cm) : + + MMode/2D Measurements & Calculations FS: 51.7 % Ao root area: LVOT diam: 1.9 cm LVLd ap4: 8.2 cm EDV(Teich): 53.7 ml 4.9 cm2 LVOT area: EDV(MOD-sp4): ESV(Teich): 8.8 ml 2.8 cm2 52.4 ml LVLs ap4: 6.5 cm ESV(MOD-sp4): 19.9 ml EF(MOD-sp4): 62.0 % SV(MOD-sp4): EF (BP): 62.2 % 32.5 ml Doppler Measurements & CalculationsMV A dur: 0.12 sec MV V2 max: MV dec time: Ao V2 max: MV E max leonard: 110.0 cm/sec 0.24 sec 158.0 cm/sec 88.3 cm/sec MV max PG: Ao max PG: MV A max leonard: 4.8 mmHg 10.0 mmHg 101.0 cm/sec MV V2 mean: AoV2 mean: MV E/A: 0.87 66.3 cm/sec 111.0 cm/sec MV mean PG: Ao mean P.0 mmHg 5.0 mmHg MV V2 VTI: 32.9 cm Ao V2 VTI: 36.6 cm MVA(VTI): 2.2 cm2 ALEXEY(I,D): 2.0 cm2 ALEXEY(V,D): 2.0 cm2 LV V1 max PG: SV(LVOT): 72.6 ml TV V2 max: PA V2 max: 5.2 mmHg 49.0 cm/sec 142.0 cm/sec LV V1 mean PG: TV max PG: PA max P.1 mmHg 2.0 mmHg 0.96 mmHgLV V1 max: 114.0 cm/sec LV V1 mean: 72.5 cm/sec LV V1 VTI: 25.6 cm PI end-d leonard: RV V1 max: TR max leonard: RAP systole: 70.6 cm/sec 117.0 cm/sec 169.0 cm/sec 3.0 mmHg TR max P.4 mmHg RVSP(TR): 14.4 mmHg Pulm Sys Leonard: 70.3 cm/sec Pulm De Los Santos Leonard: 43.2 cm/sec Pulm A Revs Leonard: 32.5 cm/sec Pulm A Revs Dur: 0.10 sec Pulm S/D: 1.6 Electronically signed by: Portillo Hernandez MD10/30/2023 10:31 AM MRI Brain WO Contrast Result Date: 10/30/2023 Narrative: EXAM DESCRIPTION: MRI BRAIN WO CONTRAST REASON [...] Images stored on PACS. COMPARISON: 10/29/2023 head CTFINDINGS: CEREBRUM: No hemorrhage, edema, or mass effect. Unremarkable ventricles WHITE MATTER: There is moderate periventricular and pontine T2/FLAIR hyperintense white matter disease, nonspecific, though likely secondary to chronic microvascular ischemia. POSTERIOR FOSSA: Brainstem and cerebellumappear unremarkable. DIFFUSION IMAGING: There is a small focus of diffusion weighted hyperintensityin the posterior right temporal lobe with mild associated ADC hypointensity. This is compatible with an acute to subacute infarction. There is mild associated FLAIR signal hyperintensity. EXTRAAXIAL SPACES: No hemorrhage. No mass. BRAIN VOLUME: Within normal limits for age. PITUITARY: Unremarkable.VASCULATURE: No flow disturbance identified. ORBITS: No masses. [...] microvascular ischemia. Upper cervical degenerative disc disease withat least moderate spinal canal stenosis at C3-C4, poorly assessed on the current protocol. This could be further assessed with cervical spine MRI. Bilateral mastoid effusions THIS IS AN ELECTRONICALLY VERIFIED FINAL REPORT 10/30/2023 8:29 AM - Electronically signed by James Javier M.D.MZ: [place] Report ID: [id number] Reading Location: [id number] CT Head WO Contrast Result Date: 10/29/2023 Narrative: EXAM DESCRIPTION: CT HEAD WO CONTRAST REASON FOR STUDY: Mental status change, unknown cause TECHNIQUE: Axial images acquired through the brain without intravenous contrast. Images stored on PACS. Automated exposure control was used as a dose optimization technique for this examination. COMPARISON: 10/11/2023. FINDINGS: BRAIN: Ventricles, cisterns and sulci are symmetric and normal in size and configuration. There are moderate confluent and patchy areas of hypodensity in the periventricular, subcortical and deep white matter as evidence for chronic microvascular angiopathy, similar to prior exam. No intracranial hemorrhage is evident. EXTRA-AXIAL SPACES: No fluid collections. No mass effect. CALVARIUM: Appears intact. Hyperostosis frontalis interna incidentally noted. SINUSES/MASTOIDS: There is a large right mastoid effusion and small to moderate left mastoid effusion, similarto prior exam. ORBITS: No significant abnormality. OTHER: No other significant abnormality. IMPRESSION: No acute intracranial findings. Moderate chronic microvascular angiopathy, similar to prior exam. Large right mastoid effusion and small to moderate left mastoid effusion, similar to prior exam. THIS IS AN ELECTRONICALLY VERIFIED FINAL REPORT 10/29/2023 8:34 PM - Electronically signed by Larry Vail M.D., D.O. Larry Vail M.D., D.O. MW: KLEVER Report ID: [id number] Reading Location: [id number] XR Chest 1 Vw Portable Result Date: 10/29/2023 Narrative: EXAM DESCRIPTION: XR CHEST 1 VIEW REASON FOR STUDY: general weakness Pt brought in by EMS from dialysis for tremors. TECHNIQUE: Single radiographic view(s) of the chest. COMPARISON: 10/10/2023 FINDINGS: LUNGS: No focal consolidation or definite pleural effusion. No pneumothorax. HEART/MEDIASTINUM: Stable cardiomediastinal contour. LINES/TUBES: Right IJ central venous catheter with the tip in the distal SVC. BONES: No acute osseous abnormality. IMPRESSION: No acute cardiopulmonary abnormality. THIS IS AN ELECTRONICALLY VERIFIED FINAL REPORT 10/29/2023 6:21 PM - Electronically signed by Navneet Enriquez M.D. AG: TON Report ID: [id number] Reading Location: [place] [address] IR Tunneled CVC > 5 Years Result Date: 10/16/2023 Narrative: EXAMINATION: IR TUNNELED LINE PLACEMENT > 5 YEARS Date: 10/15/2023 8:30 AM History: End-stage renal disease Fluoroscopy time: 0.01 minutes. Technique: The risks, benefits, and alternatives were discussed and informed consent was obtained. Prior to beginning the procedure, universal protocol was performed to confirm the patient's identity and the planned procedure. Maximum sterile barriers including cap, mask, hand hygiene, sterile gloves, sterile gown, large sterile drape, sterile gel, sterile ultrasound probe cover, and 2% chlorhexidine for cutaneous antisepsis were used. Prior to the procedure, the right internal jugular vein was evaluated by real-time ultrasound which demonst rated patency of the target vessel and an image of the PATENT VESSEL was recorded in the patient's electronic medical record. The skin over this vein was sterilely prepped, draped, and infiltrated with 1% lidocaine. This vein was then accessed with a 21-gauge needle using real-time ultrasound guidance for needle placement. A guidewire was passed centrally using fluoroscopic guidance. The intravascular length from the access site to the right atrium was assessed. After infiltrating the skin in the subclavicular region with 1% lidocaine, a short transverse incision was made and the 24 Duramax catheter was tunneled to the internal jugular vein access site and inserted through a peel-away sheath. The peel-away sheath was then removed. The catheter was flushed with heparin and secured in place. The incision in the lower neck was closed using 4-0 Monocryl. A sterile dressing was applied. Findings: The final fluoroscopic image demonstrates the catheter with its tip cavoatrial junction. No complications were identified. Impression: Successful tunneled catheter placement, as described above. Plan: The catheter is readyfor immediate use. When treatment is completed, removal can be scheduled by calling [facility] Interventional [facility]iology at [phone]. Electronically signed by: Marcus Mcdnoald M.D. CT Head WO Contrast Result Date: 10/11/2023 Narrative: EXAMINATION: CT HEAD WO CONTRAST DATE: 10/11/2023 10:05 AM HISTORY: Mental status change.COMPARISON: None. TECHNIQUE: Transaxial computed tomographic images of the head were obtained without intravenous contrast. FINDINGS: No mass, mass effect, midline shift, or hemorrhage is demonstrated. Scattered hypodensities are noted throughout the white matter consistent with chronic microvascular ischemic changes. The orbits and paranasal sinuses are normal in appearance. Extracalvarial soft tissues are unremarkable. Bilateral mastoid effusions, right greater than left. Impression: 1. No acute intracranial findings. 2. Scattered hypodensities compatible with chronic microvascular ischemic changes. 3. Bilateral mastoid effusions, right greater than left. Electronically signed by: Phil Pete II, D.O. XR Chest 1 View Result Date: 10/11/2023 Narrative: EXAMINATION: XR CHEST 1 VIEW DATE: 10/10/2023 4:50 PM INDICATION: CHF follow-up. COMPARISON: 07/28/2023. Impression: FINDINGS/IMPRESSION: No pneumothorax or pleural effusion. Mild pulmonary vascular congestion. No cardiomegaly. No acute osseous abnormality. Electronically signed by: Phil Pete II, D.O. ECG 12 lead Result Date: 10/07/2023 Narrative: Vent Rate: 74 bpm RR Interval: 801 msec SC Interval: 163 msec QRS Duration: 72 msec QT Interval: 389 msec QTC Interval: 417 msec P-R-T Spangler: 62 - 20 - 207 degrees IMPRESSION: SINUS RHYTHM NONSPECIFIC T-WAVE ABNORMALITY Electronically Signed By: Ilan Ghotra MD, [facility] No results found for the last 90 days. Current Facility-Administered Medications Medication Dose Route Frequency Provider Last Rate Last Admin acetaminophen (TYLENOL) tablet 650 mg 650 mg oral Q4H PRN Luciano Jenkins MD Or acetaminophen (TYLENOL) 32 mg/mL oral liquid 650 mg 650 mg feeding tube Q4H PRN Luciano Jenkins MD Or acetaminophen (TYLENOL) suppository 650 mg 650 mg rectal Q4H PRN Luciano Jenkins MD aspirin enteric coated tablet 81 mg 81 mg oral Daily Luciano Jenkins MD 81 mg at 009 atorvastatin (LIPITOR) tablet 20 mg 20 mg oral Nightly Aylin Kauffman MD 20 mg at 10/30/232048 benzonatate (TESSALON) capsule 100 mg 100 mg oral TID PRN Luciano Jenkins MD dextrose (GLUTOSE) 40 % gel 15 g 15 g oral Q15 Min PRN Luciano Jenkins MD Or dextrose (D10W) 10% bolus 250 mL 250 mL intravenous Q15 Min PRN Luciano Jenkins MD famotidine (PEPCID) tablet 10 mg 10 mg oral Daily Aylin Kauffman MD 10 mg at 10/30/23 1203 fluticasone propionate (FLONASE) 50 mcg/actuation nasal spray 2 spray 2 spray each nostril Daily Aylin Kauffman MD 2 spray at 10/30/23 1440 glucagon injection 1 mg 1 mg intramuscular Q30 Min PRN Luciano Jenkins MD heparin 1,000 unit/mL injection 1.5-6.9 mL 1.5-6.9 mL intra-catheter PRN Markie Ryan MD heparin 1,000 unit/mL injection 500 Units 500 Units dialysis circuit PRN Markie Ryan MD heparin 5,000 unit/mL injection 5,000 Units 5,000 Units subcutaneous Q8H [facility] Luciano Jenkins MD 5,000 Units at 10/31/23 050 insulin glargine (LANTUS, SEMGLEE) 100 unit/mL injection 16 Units 0.25 Units/kg subcutaneous Nightly Aylin Kauffman MD 16 Units at 10/30/232048 insulin lispro (HumaLOG, ADMELOG) 100 unit/mL injection 0-10 Units 0-10 Units subcutaneous TID withmeals Luciano Jenkins MD 4 Units at 10/30/23 130 insulin lispro (HumaLOG, ADMELOG) 100 unit/mL injection 0-5 Units 0-5 Units subcutaneous Nightly Luciano Jenkins MD 1 Units at 10/30/232049 insulin lispro (HumaLOG, ADMELOG) 100 unit/mL injection 5 Units 0.083 Units/kg subcutaneous TID with meals Luciano Jenkins MD 5 Units at 10/30/23 175 metoprolol tartrate (LOPRESSOR) immediate release split tablet 6.25 mg 6.25 mg oral BID Aylin Kauffman MD 6.25 mg at 10/30/232048 polyethylene glycol (MIRALAX) packet 17 g 17 g oral Daily PRN Luciano Jenkins MD ramelteon (ROZEREM) tablet 8 mg 8 mg oral Nightly PRN Aylin Kauffman MD Assessment/Plan Principal Problem: Altered mental status, unspecified altered mental status type Active Problems: AMS (altered mental status) ESRD (end stage renal disease) on dialysis (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 Presented with altered mental status and episode of hypotension during dialysis was found to have small acute to subacute infarct in the posterior right temporal lobe. # Acute encephalopathy with underlying dementia: #Small acute to subacute infarct in the posterior right temporal lobe. MRI done today suggestive of small infarct in right temporal lobe On aspirin 81 mg daily, atorvastatin 40 mg daily Await echo and carotid ultrasound Neurology consult: Discussed Dr. Buckley EEG Generalized slowing suggests diffuse cerebral dysfunction, as can be seen encephalopathy due tovarious etiologies. No focal slowing no seizure like activity was observed. Patient likely is back to baseline # history of schizophrenia # history of possible drug-induced parkinsonism symptoms -psychiatry on consult: Recommend restarting Risperdal 1mg nightly for mood. Restart Cogentin at 1mg nightly for tremor symptoms. Will restart at lower dose as Cogentin can contribute to confusion. May consider increasing back to 1.5mg qHS if needed (patient's home dose). Recommend Rozerem 8mg nightly prn for sleep. # leukocytosis: - Patient remains afebrile with no new complaint - CXR on 10/28 with no evidence of pneumonia/infection -UA on 10/28 with no evidence of UTI -uptrending WBC -check blood culture # ESRD on hemodialysis: -on dialysis Thursday//Thursday -nephrology on consult appreciate recommendations # Diabetes mellitus with hyperglycemia/diabetic nephropathy - Accu-Chek with dialysis # hypertension #labile BP Possible underlying autonomic dysfunction Continue small dose of metoprolol tartrate 6.25 mg b.i.d. DVT prophylaxis: Heparin subQ Code status: Full Code I personally discussed plan with patient, patient's daughter via phone, consultants and house staff * Hattie Miranda PTA - 10/31/2023 9:27 AM CDT Physical Therapy 10/31/23 09 PT Last Visit PT Missed Visit Reason (Pt getting dialysis.) * Charlotte Bird MD - 10/31/2023 9:15 AM CDT .General Medicine Daily Progress Subjective Patient was seen examined today, no acute overnight changes, remains afebrile with stable vital signs, denies any acute complaints. Plan for HD session today to remove 1 L Past Medical History: Diagnosis Date Anemia Arthritis CHF (congestive heart failure) (CMS/HCC) (HCC) Dementia (HCC) Depression Diabetic neuropathy (HCC) GERD (gastroesophageal reflux disease) HL (hearing loss) Hyperlipidemia Hypertension Movement disorder Osteomyelitis (HCC) Renal disorder Schizophrenia (HCC) Type 2 diabetes mellitus (HCC) Objective Vitals: 24hr Min/Max: Temp Min: 36.5 ??C (97.7 ??F) Max: 37.1 ??C (98.8 ??F) Pulse Min: 64 Max: 79 BP Min: 105/56 Max: 194/74 Resp Min: 14 Max: 18 SpO2 Min: 98 % Max: 100 % Most Recent : Vitals: 10/31/23 1124 BP: Pulse: 69 Resp: 16 Temp: 36.5 ??C (97.7 ??F) SpO2: 98% I/O last 2 completed shifts: In: 600 [P.O.:600] Out: - I/O this shift: In: 750 [I.V.:250; Other:500] Out: 1500 [Other:1500] Physical Exam: .General alert and x3 Cardiovascular RRR, normal S1 and S2, no murmurs or gallops Respiratory, clear to auscultation bilaterally, no coarse sounds, wheezing, rales, not using accessory muscles, able to speak full sentences Abdominal nondistended, soft, normal bowel sounds, no rebound or guarding Extremities no edema, palpable pulses bilaterally Neurological alert and oriented x3, intact cranial nerve, intact sensation all extremities, intact muscle strength, very resting tremors, Lab/Radiology/Diagnostic Review: Laboratory review: Lab results in the last 12 hours: Recent Results (from the past 12 hour(s)) CBC with auto differential Collection Time: 10/31/23 4:51 AM Result Value Ref Range WBC 10.1 (H) 3.8 - 9.9 K/cumm Hgb 8.3 (L) 11.9 - 15.5 g/dL Hct 25.9 (L) 35.6 - 45.5 % Plt 242 150 - 400 K/cumm MPV 10.4 9.1 - 12.3 fL RBC 2.75 (L) 3.90 - 5.20 M/cumm MCV 94.2 81.3 - 96.4 fL MCH 30.2 27.1 - 33.3 pg MCHC 32.0 (L) 32.3 - 35.7 g/dL RDW CV 13.6 11.1 - 14.9 % RDW SD 47.0 35.7 - 48.1 fL NRBC abs 0.00 0.00 - 0.01 K/cumm Basic metabolic panel Collection Time: 10/31/23 4:51 AM Result Value Ref Range Sodium 141 135 - 145 mmol/L Potassium, pl 4.7 3.3 - 4.9 mmol/L Chloride 108 97 - 110 mmol/L CO2 22 22 - 32 mmol/L Anion gap 11 2 - 15 mmol/L BUN 44 (H) 6 - 25 mg/dL Creatinine 4.00 (H) 0.60 - 1.10 mg/dL Glucose 97 70 - 199 mg/dL Calcium 8.6 8.5 - 10.3 mg/dL Differential, auto Collection Time: 10/31/23 4:51 AM Result Value Ref Range Neutrophil abs 5.3 1.5 - 6.5 K/cumm Imm gran abs 0.0 0.0 - 0.1 K/cumm Lymphocyte abs 3.9 (H) 0.8 - 3.3 K/cumm Monocyte abs 0.6 0.2 - 0.8 K/cumm Eosinophil abs 0.2 0.0 - 0.5 K/cumm Basophil abs 0.0 0.0 - 0.1 K/cumm Neutrophil pct 53.0 % Imm gran pct 0.4 % Lymphocyte pct 38.3 % Monocyte pct 5.6 % Eosinophil pct 2.4 % Basophil pct 0.3 % eGFR Collection Time: 10/31/23 4:51 AM Result Value Ref Range eGFR 11 (L) >=60 mL/min/1.73 m2 POCT glucose Collection Time: 10/31/23 7:21 AM Result Value Ref Range Glucose, POC 90 70 - 199 mg/dL Glucose comment 1 Use This Result Recent Results (from the past 48 hour(s)) CBC with auto differential Collection Time: 10/29/23 6:26 PM Result Value Ref Range WBC 12.0 (H) 3.8 - 9.9 K/cumm Hgb 9.1 (L) 11.9 - 15.5 g/dL Hct 26.7 (L) 35.6 - 45.5 % Plt 225 150 - 400 K/cumm MPV 9.9 9.1 - 12.3 fL RBC 2.95 (L) 3.90 - 5.20 M/cumm MCV 90.5 81.3 - 96.4 fL MCH 30.8 27.1 - 33.3 pg MCHC 34.1 32.3 - 35.7 g/dL RDW CV 13.8 11.1 - 14.9 % RDW SD 45.3 35.7 - 48.1 fL NRBC abs 0.00 0.00 - 0.01 K/cumm Comprehensive metabolic panel Collection Time: 10/29/23 6:26 PM Result Value Ref Range Sodium 135 135 - 145 mmol/L Potassium, pl 3.9 3.3 - 4.9 mmol/L Chloride 97 97 - 110 mmol/L CO2 25 22 - 32 mmol/L Anion gap 13 2 - 15 mmol/L BUN 21 6 - 25 mg/dL Creatinine 2.10 (H) 0.60 - 1.10 mg/dL Glucose 129 70 - 199 mg/dL Calcium 8.4 (L) 8.5 - 10.3 mg/dL Bilirubin, total 0.2 0.1 - 1.2 mg/dL Protein, pl 7.1 6.5 - 8.5 g/dL Albumin 3.3 (L) 3.5 - 5.0 g/dL Alk phos 160 (H) 40 - 130 Units/L ALT 75 (H) 7 - 45 Units/L AST 28 10 - 45 Units/L Differential, auto Collection Time: 10/29/23 6:26 PM Result Value Ref Range Neutrophil abs 9.7 (H) 1.5 - 6.5 K/cumm Imm gran abs 0.1 0.0 - 0.1 K/cumm Lymphocyte abs 1.4 0.8 - 3.3 K/cumm Monocyte abs 0.7 0.2 - 0.8 K/cumm Eosinophil abs 0.0 0.0 - 0.5 K/cumm Basophil abs 0.0 0.0 - 0.1 K/cumm Neutrophil pct 80.9 % Imm gran pct 0.4 % Lymphocyte pct 12.0 % Monocyte pct 6.2 % Eosinophil pct 0.3 % Basophil pct 0.2 % eGFR Collection Time: 10/29/23 6:26 PM Result Value Ref Range eGFR 24 (L) >=60 mL/min/1.73 m2 Troponin T high-sensitivity series (baseline, 2hr, 4hr, 6hr) Collection Time: 10/29/23 6:26 PM Result Value Ref Range Trop T hs 41 (H) <=14 ng/L Urinalysis reflex to microscopic and culture Urine, clean voided Collection Time: 10/29/23 6:43 PM Specimen: Urine, clean voided Result Value Ref Range Color, ur Straw Yellow Clarity, ur Clear Clear Specific gravity, ur 1.011 1.003 - 1.030 pH, urine 7.0 Protein, ur ql 3+ (A) Negative Glucose, ur ql 2+ (A) Negative Ketones, ur Negative Negative Bilirubin, ur Negative Negative Blood, ur Trace (A) Negative Urobilinogen, ur <2.0 <2.0 mg/dL Nitrite, ur Negative Negative Leukocyte esterase, ur Negative Negative UA reflex comment Reflex to microscopic UA will be performed. Urinalysis, microscopic only Collection Time: 10/29/23 6:43 PM Result Value Ref Range WBC, ur 0-5 0 - 5 /HPF RBC, ur 0-2 0 - 2 /HPF Culture Reflex Comment Reflex conditions for urine culture (WBC >10) not met. Troponin T high-sensitivity 2-hour Collection Time: 10/29/23 8:07 PM Result Value Ref Range Trop T hs 39 (H) <=14 ng/L Trop T hs delta -2 ng/L Trop T hs interp Insignificant Troponin T high-sensitivity 4-hour Collection Time: 10/29/23 10:24 PM Result Value Ref Range Trop T hs 38 (H) <=14 ng/L Trop T hs delta -3 ng/L Trop T hs interp Insignificant POCT glucose Collection Time: 10/29/23 11:43 PM Result Value Ref Range Glucose, POC 162 70 - 199 mg/dL Troponin T high-sensitivity 6-hour Collection Time: 10/30/23 12:15 AM Result Value Ref Range Trop T hs 37 (H) <=14 ng/L Trop T hs delta -4 ng/L Trop T hs interp Insignificant Lipid panel Collection Time: 10/30/23 4:46 AM Result Value Ref Range Cholesterol 118 30 - 199 mg/dL Triglycerides 104 <=149 mg/dL HDL 47 >=40 mg/dL LDL, calculated 50 <=129 mg/dL Non-HDL Cholesterol 71 mg/dL Chol/HDL ratio 3 Comprehensive metabolic panel Collection Time: 10/30/23 4:46 AM Result Value Ref Range Sodium 141 135 - 145 mmol/L Potassium, pl 4.3 3.3 - 4.9 mmol/L Chloride 103 97 - 110 mmol/L CO2 24 22 - 32 mmol/L Anion gap 14 2 - 15 mmol/L BUN 32 (H) 6 - 25 mg/dL Creatinine 3.00 (H) 0.60 - 1.10 mg/dL Glucose 175 70 - 199 mg/dL Calcium 8.6 8.5 - 10.3 mg/dL Bilirubin, total 0.2 0.1 - 1.2 mg/dL Protein, pl 6.8 6.5 - 8.5 g/dL Albumin 3.2 (L) 3.5 - 5.0 g/dL Alk phos 162 (H) 40 - 130 Units/L ALT 61 (H) 7 - 45 Units/L AST 17 10 - 45 Units/L Magnesium Collection Time: 10/30/23 4:46 AM Result Value Ref Range Magnesium 1.7 1.4 - 2.5 mg/dL Phosphorus Collection Time: 10/30/23 4:46 AM Result Value Ref Range Phosphorus, pl 4.4 2.3 - 4.5 mg/dL CBC without differential Collection Time: 10/30/23 4:46 AM Result Value Ref Range WBC 12.1 (H) 3.8 - 9.9 K/cumm Hgb 9.1 (L) 11.9 - 15.5 g/dL Hct 27.7 (L) 35.6 - 45.5 % Plt 268 150 - 400 K/cumm MPV 10.8 9.1 - 12.3 fL RBC 3.00 (L) 3.90 - 5.20 M/cumm MCV 92.3 81.3 - 96.4 fL MCH 30.3 27.1 - 33.3 pg MCHC 32.9 32.3 - 35.7 g/dL RDW CV 13.7 11.1 - 14.9 % RDW SD 46.4 35.7 - 48.1 fL NRBC abs 0.00 0.00 - 0.01 K/cumm eGFR Collection Time: 10/30/23 4:46 AM Result Value Ref Range eGFR 16 (L) >=60 mL/min/1.73 m2 POCT glucose Collection Time: 10/30/23 9:39 AM Result Value Ref Range Glucose, POC 143 70 - 199 mg/dL Glucose comment 1 Use This Result Glucose comment 2 RN/MD Notified Influenza A/B, RSV, and COVID-19 PCR Nasopharyngeal Collection Time: 10/30/23 10:08 AM Specimen: Nasopharyngeal Result Value Ref Range COVID-19 RNA Negative Negative Influenza A RNA Negative Negative Influenza B RNA Negative Negative RSV RNA Negative Negative POCT glucose Collection Time: 10/30/23 11:24 AM Result Value Ref Range Glucose, POC 209 (H) 70 - 199 mg/dL Glucose comment 1 Use This Result Glucose comment 2 RN/MD Notified POCT glucose Collection Time: 10/30/23 12:56 PM Result Value Ref Range Glucose, POC 213 (H) 70 - 199 mg/dL POCT glucose Collection Time: 10/30/23 5:39 PM Result Value Ref Range Glucose, POC 134 70 - 199 mg/dL Glucose comment 1 Use This Result POCT glucose Collection Time: 10/30/23 8:29 PM Result Value Ref Range Glucose, POC 176 70 - 199 mg/dL CBC with auto differential Collection Time: 10/31/23 4:51 AM Result Value Ref Range WBC 10.1 (H) 3.8 - 9.9 K/cumm Hgb 8.3 (L) 11.9 - 15.5 g/dL Hct 25.9 (L) 35.6 - 45.5 % Plt 242 150 - 400 K/cumm MPV 10.4 9.1 - 12.3 fL RBC 2.75 (L) 3.90 - 5.20 M/cumm MCV 94.2 81.3 - 96.4 fL MCH 30.2 27.1 - 33.3 pg MCHC 32.0 (L) 32.3 - 35.7 g/dL RDW CV 13.6 11.1 - 14.9 % RDW SD 47.0 35.7 - 48.1 fL NRBC abs 0.00 0.00 - 0.01 K/cumm Basic metabolic panel Collection Time: 10/31/23 4:51 AM Result Value Ref Range Sodium 141 135 - 145 mmol/L Potassium, pl 4.7 3.3 - 4.9 mmol/L Chloride 108 97 - 110 mmol/L CO2 22 22 - 32 mmol/L Anion gap 11 2 - 15 mmol/L BUN 44 (H) 6 - 25 mg/dL Creatinine 4.00 (H) 0.60 - 1.10 mg/dL Glucose 97 70 - 199 mg/dL Calcium 8.6 8.5 - 10.3 mg/dL Differential, auto Collection Time: 10/31/23 4:51 AM Result Value Ref Range Neutrophil abs 5.3 1.5 - 6.5 K/cumm Imm gran abs 0.0 0.0 - 0.1 K/cumm Lymphocyte abs 3.9 (H) 0.8 - 3.3 K/cumm Monocyte abs 0.6 0.2 - 0.8 K/cumm Eosinophil abs 0.2 0.0 - 0.5 K/cumm Basophil abs 0.0 0.0 - 0.1 K/cumm Neutrophil pct 53.0 % Imm gran pct 0.4 % Lymphocyte pct 38.3 % Monocyte pct 5.6 % Eosinophil pct 2.4 % Basophil pct 0.3 % eGFR Collection Time: 10/31/23 4:51 AM Result Value Ref Range eGFR 11 (L) >=60 mL/min/1.73 m2 POCT glucose Collection Time: 10/31/23 7:21 AM Result Value Ref Range Glucose, POC 90 70 - 199 mg/dL Glucose comment 1 Use This Result Transthoracic Echo (TTE) Complete W Doppler/CF Result Date: 10/30/2023 Narrative: Adult Echocardiogram + + :Name: SIXTO CHAKRABORTY Study Date: 10/30/2023 Status: [facility] : : Patient Location: [address]^[id number]^MHeight: 62 in : : Weight: 136 lbBP: 154/62 mmHg: :: 1950 Gender: Female BSA: 1.6 m2 : :Reason For Study: TIA, initial exam : :Ordering Physician: : :LUCIANO JENKINS : : : :Performed By: Juju : :SHEA Cheema : + + Procedure A two-dimensional transthoracic echocardiogram with color flow andDoppler was performed. A saline contrast injection was performed to assess for cardiac shunting. Left Ventricle The left ventricle is normal in size. There is mild concentric left ventricular hypertro phy. Ejection Fraction = 60-65%. Left ventricular systolic function is normal. Right Ventricle The right ventricle is normal in size and function. Atria The left atrial size is normal. Right atrial size is normal. A bubble study shows no evidence of intracardiac mbrpt-ug-vxuh shunting, i.e. no patent foramen ovale (PFO). Mitral Valve There is no mitral valve stenosis. There is trace mitral regurgitation. Tricuspid Valve There is trace tricuspid regurgitation. Right ventricular systolic pressureis normal. Aortic Valve The aortic valve opens well. The aortic valve is trileaflet. No aortic stenosis . Trace aortic regurgitation. Pulmonic Valve Trace pulmonic valvular regurgitation. Great Vessels The aortic root is normal size. IVC appears normal in size. IVC collapses normally with inspiration. Normal right heart pressures. Pericardium Trace pericardial effusion. Diastology Grade I diastolic dysfunction, (abnormal relaxation pattern). Interpretation Summary The left ventricle is normal in size. There is mild concentric left ventricular hypertrophy. Ejection Fraction = 60-65%. Left ventricular systolic function is normal. Grade I diastolic dysfunction, (abnormal relaxation pattern). Abubble study shows no evidence of intracardiac bxdtc-ah-xqmd shunting, i.e. no patent foramen ovale(PFO). Trace aortic regurgitation. + + :Measurements with Normals : : (0.6-1.2 LVIDd: (3.5-5.7 Ao root diam: (2.0-3.7 : :IVSd: 1.4 cmcm) 3.6 cm cm) 2.5 cm cm) : :LVPWd: (0.6-1.1 LVIDs: (3.1-4.6 LA dimension: (1.9-4.0 : :1.3 cm cm) 1.7 cm cm) 3.9 cm cm) : + + MMode/2D Measurements & Calculations FS: 51.7 % Ao root area: LVOT diam: 1.9 cm LVLd ap4: 8.2 cm EDV(Teich): 53.7 ml 4.9 cm2 LVOT area: EDV(MOD-sp4): ESV(Teich): 8.8 ml 2.8 cm2 52.4ml LVLs ap4: 6.5 cm ESV(MOD-sp4): 19.9 ml EF(MOD-sp4): 62.0 % SV(MOD-sp4): EF (BP): 62.2 % 32.5 ml Doppler Measurements & Calculations MV A dur: 0.12 sec MV V2 max: MV dec time: Ao V2 max: MV E max leonard: 110.0 cm/sec 0.24 sec 158.0 cm/sec 88.3 cm/sec MV max PG: Ao max PG: MV A max leonard: 4.8 mmHg 10.0 mmHg 101.0 cm/sec MV V2 mean: Ao V2 mean: MV E/A: 0.87 66.3 cm/sec 111.0 cm/sec MV mean PG: Ao mean P.0 mmHg 5.0 mmHg MV V2VTI: 32.9 cm Ao V2 VTI: 36.6 cm MVA(VTI): 2.2 cm2 ALEXEY(I,D): 2.0 cm2 ALEXEY(V,D): 2.0 cm2 LV V1 max PG: SV(LVOT): 72.6 ml TV V2 max: PA V2max: 5.2 mmHg 49.0 cm/sec 142.0 cm/sec LV V1 mean PG: TV max PG: PA max P.1 mmHg 2.0 mmHg 0.96 mmHg LV V1 max: 114.0 cm/sec LV V1 mean: 72.5 cm/sec LV V1 VTI: 25.6 cm PI end-d leonard: RV V1 max: TR max leonard: RAP systole: 70.6 cm/sec 117.0 cm/sec 169.0 cm/sec 3.0 mmHg TR max P.4 mmHg RVSP(TR): 14.4 mmHg Pulm Sys Leonard: 70.3 cm/sec Pulm De Los Santos Leonard: 43.2 cm/sec Pulm A Revs Leonard: 32.5 cm/sec Pulm A Revs Dur: 0.10 sec Pulm S/D: 1.6 Electronically signed by: Portillo Hernandez MD 10/30/2023 10:31 AM MRI Brain WO Contrast Result Date: 10/30/2023 Narrative: EXAM DESCRIPTION: MRI BRAIN WO CONTRAST REASON [...] Images stored on PACS. COMPARISON: 10/29/2023 head CTFINDINGS: CEREBRUM: No hemorrhage, edema, or mass effect. Unremarkable ventricles WHITE MATTER: There is moderate periventricular and pontine T2/FLAIR hyperintense white matter disease, nonspecific, though likely secondary to chronic microvascular ischemia. POSTERIOR FOSSA: Brainstem and cerebellumappear unremarkable. DIFFUSION IMAGING: There is a small focus of diffusion weighted hyperintensityin the posterior right temporal lobe with mild associated ADC hypointensity. This is compatible with an acute to subacute infarction. There is mild associated FLAIR signal hyperintensity. EXTRAAXIAL SPACES: No hemorrhage. No mass. BRAIN VOLUME: Within normal limits for age. PITUITARY: Unremarkable.VASCULATURE: No flow disturbance identified. ORBITS: No masses. [...] microvascular ischemia. Upper cervical degenerative disc disease withat least moderate spinal canal stenosis at C3-C4, poorly assessed on the current protocol. This could be further assessed with cervical spine MRI. Bilateral mastoid effusions THIS IS AN ELECTRONICALLY VERIFIED FINAL REPORT 10/30/2023 8:29 AM - Electronically signed by James Javier M.D.MZ: VALENTINA Report ID: [id number] Reading Location: [id number] CT Head WO Contrast Result Date: 10/29/2023 Narrative: EXAM DESCRIPTION: CT HEAD WO CONTRAST REASON FOR STUDY: Mental status change, unknown cause TECHNIQUE: Axial images acquired through the brain without intravenous contrast. Images stored on PACS. Automated exposure control was used as a dose optimization technique for this examination. COMPARISON: 10/11/2023. FINDINGS: BRAIN: Ventricles, cisterns and sulci are symmetric and normal in size and configuration. There are moderate confluent and patchy areas of hypodensity in the periventricular, subcortical and deep white matter as evidence for chronic microvascular angiopathy, similar to prior exam. No intracranial hemorrhage is evident. EXTRA-AXIAL SPACES: No fluid collections. No mass effect. CALVARIUM: Appears intact. Hyperostosis frontalis interna incidentally noted. SINUSES/MASTOIDS: There is a large right mastoid effusion and small to moderate left mastoid effusion, similarto prior exam. ORBITS: No significant abnormality. OTHER: No other significant abnormality. IMPRESSION: No acute intracranial findings. Moderate chronic microvascular angiopathy, similar to prior exam. Large right mastoid effusion and small to moderate left mastoid effusion, similar to prior exam. THIS IS AN ELECTRONICALLY VERIFIED FINAL REPORT 10/29/2023 8:34 PM - Electronically signed by Jeff Rodas M.D..OJonel Vail M.D., D.O. MW: KLEVER Report ID: [id number] Reading Location: [id number] XR Chest 1 Vw Portable Result Date: 10/29/2023 Narrative: EXAM DESCRIPTION: XR CHEST 1 VIEW REASON FOR STUDY: general weakness Pt brought in by EMS from dialysis for tremors. TECHNIQUE: Single radiographic view(s) of the chest. COMPARISON: 10/10/2023 FINDINGS: LUNGS: No focal consolidation or definite pleural effusion. No pneumothorax. HEART/MEDIASTINUM: Stable cardiomediastinal contour. LINES/TUBES: Right IJ central venous catheter with the tip in the distal SVC. BONES: No acute osseous abnormality. IMPRESSION: No acute cardiopulmonary abnormality. THIS IS AN ELECTRONICALLY VERIFIED FINAL REPORT 10/29/2023 6:21 PM - Electronically signed by Navneet Enriquez M.D. AG: TON Report ID: [id number] Reading Location: [id number] IR Tunneled CVC > 5 Years Result Date: 10/16/2023 Narrative: EXAMINATION: IR TUNNELED LINE PLACEMENT > 5 YEARS Date: 10/15/2023 8:30 AM History: End-stage renal disease Fluoroscopy time: 0.01 minutes. Technique: The risks, benefits, and alternatives were discussed and informed consent was obtained. Prior to beginning the procedure, universal protocol was performed to confirm the patient's identity and the planned procedure. Maximum sterile barriers including cap, mask, hand hygiene, sterile gloves, sterile gown, large sterile drape, sterile gel, sterile ultrasound probe cover, and 2% chlorhexidine for cutaneous antisepsis were used. Prior to the procedure, the right internal jugular vein was evaluated by real-time ultrasound which demonst rated patency of the target vessel and an image of the PATENT VESSEL was recorded in the patient's electronic medical record. The skin over this vein was sterilely prepped, draped, and infiltrated with 1% lidocaine. This vein was then accessed with a 21-gauge needle using real-time ultrasound guidance for needle placement. A guidewire was passed centrally using fluoroscopic guidance. The intravascular length from the access site to the right atrium was assessed. After infiltrating the skin in the subclavicular region with 1% lidocaine, a short transverse incision was made and the 24 Duramax catheter was tunneled to the internal jugular vein access site and inserted through a peel-away sheath. The peel-away sheath was then removed. The catheter was flushed with heparin and secured in place. The incision in the lower neck was closed using 4-0 Monocryl. A sterile dressing was applied. Findings: The final fluoroscopic image demonstrates the catheter with its tip cavoatrial junction. No complications were identified. Impression: Successful tunneled catheter placement, as described above. Plan: The catheter is readyfor immediate use. When treatment is completed, removal can be scheduled by calling [facility] Interventional Radiology at [phone]. Electronically signed by: Marcus Mcdonald M.D. CT Head WO Contrast Result Date: 10/11/2023 Narrative: EXAMINATION: CT HEAD WO CONTRAST DATE: 10/11/2023 10:05 AM HISTORY: Mental status change.COMPARISON: None. TECHNIQUE: Transaxial computed tomographic images of the head were obtained without intravenous contrast. FINDINGS: No mass, mass effect, midline shift, or hemorrhage is demonstrated. Scattered hypodensities are noted throughout the white matter consistent with chronic microvascular ischemic changes. The orbits and paranasal sinuses are normal in appearance. Extracalvarial soft tissues are unremarkable. Bilateral mastoid effusions, right greater than left. Impression: 1. No acute intracranial findings. 2. Scattered hypodensities compatible with chronic microvascular ischemic changes. 3. Bilateral mastoid effusions, right greater than left. Electronically signed by: Phil Pete II, D.O. XR Chest 1 View Result Date: 10/11/2023 Narrative: EXAMINATION: XR CHEST 1 VIEW DATE: 10/10/2023 4:50 PM INDICATION: CHF follow-up. COMPARISON: 07/28/2023. Impression: FINDINGS/IMPRESSION: No pneumothorax or pleural effusion. Mild pulmonary vascular congestion. No cardiomegaly. No acute osseous abnormality. Electronically signed by: Phil Pete II, D.O. ECG 12 lead Result Date: 10/07/2023 Narrative: Vent Rate: 74 bpm RR Interval: 801 msec SC Interval: 163 msec QRS Duration: 72 msec QT Interval: 389 msec QTC Interval: 417 msec P-R-T Spangler: 62 - 20 - 207 degrees IMPRESSION: SINUS RHYTHM NONSPECIFIC T-WAVE ABNORMALITY Electronically Signed By: Ilan Ghotra MD, [facility] No results found for the last 90 days. Current Facility-Administered Medications Medication Dose Route Frequency Provider Last Rate Last Admin acetaminophen (TYLENOL) tablet 650 mg 650 mg oral Q4H PRN Luciano Jenkins MD Or acetaminophen (TYLENOL) 32 mg/mL oral liquid 650 mg 650 mg feeding tube Q4H PRN Luciano Jenkins MD Or acetaminophen (TYLENOL) suppository 650 mg 650 mg rectal Q4H PRN Luciano Jenkins MD aspirin enteric coated tablet 81 mg 81 mg oral Daily Luciano Jenkins MD 81 mg at atorvastatin (LIPITOR) tablet 20 mg 20 mg oral Nightly Aylin Kauffman MD 20 mg at 10/30/232048 benzonatate (TESSALON) capsule 100 mg 100 mg oral TID PRN Luciano Jenkins MD dextrose (GLUTOSE) 40 % gel 15 g 15 g oral Q15 Min PRN Luciano Jenkins MD Or dextrose (D10W) 10% bolus 250 mL 250 mL intravenous Q15 Min PRN Luciano Jenkins MD famotidine (PEPCID) tablet 10 mg 10 mg oral Daily Alyin Kauffman MD 10 mg at 10/30/23 1203 fluticasone propionate (FLONASE) 50 mcg/actuation nasal spray 2 spray 2 spray each nostril Daily Aylin Kauffman MD 2 spray at 10/30/23 1440 glucagon injection 1 mg 1 mg intramuscular Q30 Min PRN Luciano Jenkins MD heparin 1,000 unit/mL injection 1.5-6.9 mL 1.5-6.9 mL intra-catheter PRN Markie Ryan MD heparin 1,000 unit/mL injection 500 Units 500 Units dialysis circuit PRN Markie Ryan MD heparin 5,000 unit/mL injection 5,000 Units 5,000 Units subcutaneous Q8H SOL Luciano Jenkins MD 5,000 Units at 10/31/23 0503 insulin glargine (LANTUS, SEMGLEE) 100 unit/mL injection 16 Units 0.25 Units/kg subcutaneous Nightly Aylin Kauffman MD 16 Units at 10/30/232048 insulin lispro (HumaLOG, ADMELOG) 100 unit/mL injection 0-10 Units 0-10 Units subcutaneous TID withmeals Luciano Jenkins MD 4 Units at 10/30/23 1301 insulin lispro (HumaLOG, ADMELOG) 100 unit/mL injection 0-5 Units 0-5 Units subcutaneous Nightly Luciano Jenkins MD 1 Units at 10/30/23 2050 insulin lispro (HumaLOG, ADMELOG) 100 unit/mL injection 5 Units 0.083 Units/kg subcutaneous TID with meals Luciano Jenkins MD 5 Units at 10/30/23 1758 metoprolol tartrate (LOPRESSOR) immediate release split tablet 6.25 mg 6.25 mg oral BID Aylin Kauffman MD 6.25 mg at 10/30/232048 polyethylene glycol (MIRALAX) packet 17 g 17 g oral Daily PRN Luciano Jenkins MD ramelteon (ROZEREM) tablet 8 mg 8 mg oral Nightly PRN Aylin Kauffman MD Assessment/Plan Principal Problem: Altered mental status, unspecified altered mental status type Active Problems: AMS (altered mental status) ESRD (end stage renal disease) on dialysis (HCC) 78 female with a PMHx significant for HTN, ESRD on HD, HLD, schizophrenia, mild dementia, 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 Presented with altered mental status and episode of hypotension during dialysis was found to have small acute to subacute infarct in the posterior right temporal lobe. # Acute encephalopathy with underlying dementia: #Small acute to subacute infarct in the posterior right temporal lobe. MRI done today suggestive of small infarct in right temporal lobe On aspirin 81 mg daily, atorvastatin 40 mg daily Await echo and carotid ultrasound Neurology consult: Discussed Dr. Buckley EEG pending Patient likely is back to baseline Remains afebrile with no signs of infection sepsis. We will obtain psychiatric evaluation to evaluate her antipsychotic medications. # ESRD on hemodialysis: -on dialysis Thursday//Thursday -nephrology on consult appreciate recommendations # Diabetes mellitus with hyperglycemia/diabetic nephropathy - Accu-Chek with dialysis #mild leukocytosis -improving Reactive no evidence of infection/sepsis -continue monitor CBC DVT prophylaxis: Heparin subQ Code status: Full Code I personally discussed plan with patient, patient's daughter vis phone consultants and house staff * Marilyn Adan, PT - 10/30/2023 2:03 PM CDT Physical Therapy 10/30/23 1403 General Chart Reviewed Yes Session Type Evaluation PT Received On 10/30/23 Safe Environment Arm band checked;Gait belt utilized for all out of bed mobility;Patient found in supine;Session completed bedside Subjective Agreeable to Therapy Additional Pertinent History Dx: AMS, MRI=small acute to subacute infarct rt temporal lobe PMHX: alzheimers Family/Caregiver Present No Physical Therapy-Patient Goal Pt did not state goal. Precautions Precautions Bed/Chair Alarm;Fall risk Home Living Type of Home House Home Layout One level Home Access Level entry Bathroom Shower/Tub Tub/shower unit Bathroom Equipment Grab bars in shower/tub;Shower chair Home Mobility Equipment-Available Wheeled walker;Quad cane-large base Home Mobility Equipment-Currently Using Wheeled walker Prior Function Level of [place] Needs assistance with homemaking;Independent with ADLs;Independent functionaltransfers;Independent with ambulation Lives With Daughter Receives Help From Family Driving No Mode of Transportation Driven by others ADL Assistance Independent Vocational/Occupation Retired Fall within the last 6 months No Pain Assessment Pain Assessment Lo-Infante FACES Lo-Infante FACES Pain Rating 0 Cognition Orientation Oriented to person;Oriented to place;Oriented to time Following Commands Follows one step commands without difficulty Compliance/Behavior Easy to engage Bed Mobility 1 Bed Mobility From 1 Supine Bed Mobility Type 1 To Bed Mobility to 1 Edge of bed Level of Assistance 1 Modified Independent Transfer 1 Transfer From 1 Sit Transfer Type 1 To and from Transfer to 1 Stand Technique 1 Sit to stand;Stand to sit Transfer Device 1 Wheeled walker Transfer Level of Assistance 1 Minimum Assist Ambulation 1 Distance (ft) 1 15 Surface 1 Level tile Device 1 Wheeled walker Assistance 1 Contact Guard Assist Gait: Requires verbal cues to 1 Improve upright posture;Increase step length Gait Deviations 1 Brigid - decreased;Posture - flexed;Step length - decreased Safe Environment End of Therapy Session Safe Environment End of Therapy Session Patient left in recliner;Chair alarm in place and activated;RN notified;Call light within reach;Overbed table within reach;Bed in lowest position with wheels locked Assessment Prognosis Good Problem List Gait deviations;Decreased strength;Decreased endurance;Impaired balance;Decreased mobility Barriers to Discharge None Plan Plan Plan of care initiated Recommendation/Plan PT Recommendation/Plan (S) Home with 24 hour supervision;Home Health PT;Home Health OT PT Frequency during current admission Daily Treatment/Interventions during current admission Balance Training;Bed mobility;Endurance training;Functional transfer training;Gait training;Strengthening;Therapeutic exercise;Transfer training PT - Next Appointment 11/13/23 PT Evaluation Complete Yes Multi-Disciplinary Problems (from Physical Therapy) Active Problems Problem: Mobility Start Date: 10/30/23 Goal Start Date Expected End Date End Date LTG - Patient will demonstrate functional mobility with the following level of assist: 10/30/23 11/13/23 -- Goal Details: Pt will transfer and ambulate 50 feet, w walker, cga of 1, Fan Mail Clerk Services Utilized: NO Educated the patient to the role of physical therapy, plan of care, goals of therapy, rationale forprogressing mobility. Patient was left with all needs met and equipment intact. Mobility and ADL status posted at bedsideand within medical record. * Sera Castaneda, WELDING LEAD BURNER - 10/30/2023 11:46 AM CDT IP Social Work Assessment Social History: Prior to admission the patient was independent and lived with her dtr. Home DME: per pt, she doesn't use anything at home Impressions: REHABILITATION TEAM LEAD met with patient at bedside to discuss dc planning. Patient was A&Ox 3, pleasant, and cooperative. Based on a comprehensive family assessment, assistance with instrumental activities of daily livingafter discharge will be provided by Self w/ support from Family/Friends. Patient/family has the knowledge of available resources and that combining them with their existingresources will suffice and sustain care at discharge. The treatment team is aware of this information. All are in agreement with the aftercare plan. Problem: Patient identified for social work consult due to advance care planning. Sixto Chakraborty would benefit from continued therapy services at d/c. PT/OT to eval. Patient is currently obs. Goal: Social work will work with Sixto Chakraborty and family for discharge planning needs.Social workassess for possible complex discharge concerns. Provide resources and education to help reduce readmission and improve terminal gauger health. Social Work Plan: No social service needs identified at this time. CM following for discharge planning and progression of care and can consult ss if needs arise Communication: Communications Important Message from Medicare notice given to patient?: No (NO ADM OBS 5.9.24) MARTINEZ letter given?: Yes (YES ED GAVE 5.9.24) MARTINEZ letter given on:: 10/29/23 (10/30/23 0744) Additional Information: Patient is a dialysis pt on TTS. She cannot recall the name of the center she attends, but said that her family transports. Primary Care Provider: Duane Corcoran MD Assessment: Social Determinates of Health: Transportation Needs: No Transportation Needs (10/30/2023) PRAPARE - Transportation Lack of Transportation (Medical): No Lack of Transportation (Non-Medical): No Social Connections: Moderately Isolated (10/30/2023) Social Connection and Isolation Panel [NHANES] Frequency of Communication with Friends and Family: More than three times a week Frequency of Social Gatherings with Friends and Family: More than three times a week Attends [employer] Services: More than 4 times per year Active Member of Clubs or Organizations: No Attends Club or Organization Meetings: Never Marital Status: Food Insecurity: No Food Insecurity (10/30/2023) Hunger Vital Sign Worried About Running Out of Food in the Last Year: Never true Ran Out of Food in the Last Year: Never true Housing Stability: Low Risk (10/30/2023) Housing Stability Vital Sign Unable to Pay for Housing in the Last Year: No Number of Places Lived in the Last Year: 1 Unstable Housing in the Last Year: No Financial Resource Strain: Low Risk (10/30/2023) Overall Financial Resource Strain (CARDIA) Difficulty of Paying Living Expenses: Not very hard Questions encouraged and answered. Will continue to follow progression of care and monitor for further discharge needs. Sera Castaneda LCSW 10/30/2023 11:47 AM * Marilyn Adan, PT - 10/30/2023 9:38 AM CDT Physical Therapy 10/30/23 0938 General Chart Reviewed Yes Session Type Evaluation PT Missed Visit Reason Patient declined (pt just got back from MRI and wants to rest) * Jordy Grayson, OT - 10/30/2023 8:37 AM CDT Occupational Therapy 10/30/23 0837 General Chart Reviewed Yes Session Type Evaluation OT Missed Visit Reason Procedure/testing/appointment (Pt. at MRI testing at 8:37. Checked back at 0955 and pt. states she needs to rest. Will check backas time allows.) * Aylin Kauffman MD - 10/30/2023 7:59 AM CDT Images from the original note were not included. General Medicine Daily Progress Subjective Chief complaint of acute confusion during hemodialysis. Interval History: Patient awake and alert and oriented at the moment Past Medical History: Diagnosis Date Anemia Arthritis CHF (congestive heart failure) (CMS/HCC) (HCC) Dementia (HCC) Depression Diabetic neuropathy (HCC) GERD (gastroesophageal reflux disease) HL (hearing loss) Hyperlipidemia Hypertension Movement disorder Osteomyelitis (HCC) Renal disorder Schizophrenia (HCC) Type 2 diabetes mellitus (HCC) Objective Vitals: 24hr Min/Max: Temp Min: 36.6 ??C (97.9 ??F) Max: 36.9 ??C (98.4 ??F) Pulse Min: 69 Max: 97 BP Min: 147/58 Max: 179/80 Resp Min: 12 Max: 19 SpO2 Min: 95 % Max: 100 % Most Recent : Vitals: 10/30/23 1125 BP: 147/58 Pulse: 73 Resp: 16 Temp: 36.9 ??C (98.4 ??F) SpO2: 97% I/O last 2 completed shifts: In: - Out: 500 [Urine:500] No intake/output data recorded. Physical Exam: Physical Exam Constitutional: General: She is not in acute distress. HENT: Head: Normocephalic and atraumatic. Mouth/Throat: Mouth: Mucous membranes are moist. Eyes: General: No scleral icterus. Cardiovascular: Rate and Rhythm: Regular rhythm. Pulmonary: Breath sounds: Normal breath sounds. No wheezing. Abdominal: General: Bowel sounds are normal. Palpations: Abdomen is soft. Musculoskeletal: Cervical back: Neck supple. Right lower leg: No edema. Left lower leg: No edema. Skin: General: Skin is warm. Neurological: Mental Status: She is alert. Mental status is at baseline. Psychiatric: Mood and Affect: Mood normal. Lab/Radiology/Diagnostic Review: Recent Results (from the past 24 hour(s)) CBC with auto differential Collection Time: 10/29/23 6:26 PM Result Value Ref Range WBC 12.0 (H) 3.8 - 9.9 K/cumm Hgb 9.1 (L) 11.9 - 15.5 g/dL Hct 26.7 (L) 35.6 - 45.5 % Plt 225 150 - 400 K/cumm MPV 9.9 9.1 - 12.3 fL RBC 2.95 (L) 3.90 - 5.20 M/cumm MCV 90.5 81.3 - 96.4 fL MCH 30.8 27.1 - 33.3 pg MCHC 34.1 32.3 - 35.7 g/dL RDW CV 13.8 11.1 - 14.9 % RDW SD 45.3 35.7 - 48.1 fL NRBC abs 0.00 0.00 - 0.01 K/cumm Comprehensive metabolic panel Collection Time: 10/29/23 6:26 PM Result Value Ref Range Sodium 135 135 - 145 mmol/L Potassium, pl 3.9 3.3 - 4.9 mmol/L Chloride 97 97 - 110 mmol/L CO2 25 22 - 32 mmol/L Anion gap 13 2 - 15 mmol/L BUN 21 6 - 25 mg/dL Creatinine 2.10 (H) 0.60 - 1.10 mg/dL Glucose 129 70 - 199 mg/dL Calcium 8.4 (L) 8.5 - 10.3 mg/dL Bilirubin, total 0.2 0.1 - 1.2 mg/dL Protein, pl 7.1 6.5 - 8.5 g/dL Albumin 3.3 (L) 3.5 - 5.0 g/dL Alk phos 160 (H) 40 - 130 Units/L ALT 75 (H) 7 - 45 Units/L AST 28 10 - 45 Units/L Differential, auto Collection Time: 10/29/23 6:26 PM Result Value Ref Range Neutrophil abs 9.7 (H) 1.5 - 6.5 K/cumm Imm gran abs 0.1 0.0 - 0.1 K/cumm Lymphocyte abs 1.4 0.8 - 3.3 K/cumm Monocyte abs 0.7 0.2 - 0.8 K/cumm Eosinophil abs 0.0 0.0 - 0.5 K/cumm Basophil abs 0.0 0.0 - 0.1 K/cumm Neutrophil pct 80.9 % Imm gran pct 0.4 % Lymphocyte pct 12.0 % Monocyte pct 6.2 % Eosinophil pct 0.3 % Basophil pct 0.2 % eGFR Collection Time: 10/29/23 6:26 PM Result Value Ref Range eGFR 24 (L) >=60 mL/min/1.73 m2 Troponin T high-sensitivity series (baseline, 2hr, 4hr, 6hr) Collection Time: 10/29/23 6:26 PM Result Value Ref Range Trop T hs 41 (H) <=14 ng/L Urinalysis reflex to microscopic and culture Urine, clean voided Collection Time: 10/29/23 6:43 PM Specimen: Urine, clean voided Result Value Ref Range Color, ur Straw Yellow Clarity, ur Clear Clear Specific gravity, ur 1.011 1.003 - 1.030 pH, urine 7.0 Protein, ur ql 3+ (A) Negative Glucose, ur ql 2+ (A) Negative Ketones, ur Negative Negative Bilirubin, ur Negative Negative Blood, ur Trace (A) Negative Urobilinogen, ur <2.0 <2.0 mg/dL Nitrite, ur Negative Negative Leukocyte esterase, ur Negative Negative UA reflex comment Reflex to microscopic UA will be performed. Urinalysis, microscopic only Collection Time: 10/29/23 6:43 PM Result Value Ref Range WBC, ur 0-5 0 - 5 /HPF RBC, ur 0-2 0 - 2 /HPF Culture Reflex Comment Reflex conditions for urine culture (WBC >10) not met. Troponin T high-sensitivity 2-hour Collection Time: 10/29/23 8:07 PM Result Value Ref Range Trop T hs 39 (H) <=14 ng/L Trop T hs delta -2 ng/L Trop T hs interp Insignificant Troponin T high-sensitivity 4-hour Collection Time: 10/29/23 10:24 PM Result Value Ref Range Trop T hs 38 (H) <=14 ng/L Trop T hs delta -3 ng/L Trop T hs interp Insignificant POCT glucose Collection Time: 10/29/23 11:43 PM Result Value Ref Range Glucose, POC 162 70 - 199 mg/dL Troponin T high-sensitivity 6-hour Collection Time: 10/30/23 12:15 AM Result Value Ref Range Trop T hs 37 (H) <=14 ng/L Trop T hs delta -4 ng/L Trop T hs interp Insignificant Lipid panel Collection Time: 10/30/23 4:46 AM Result Value Ref Range Cholesterol 118 30 - 199 mg/dL Triglycerides 104 <=149 mg/dL HDL 47 >=40 mg/dL LDL, calculated 50 <=129 mg/dL Non-HDL Cholesterol 71 mg/dL Chol/HDL ratio 3 Comprehensive metabolic panel Collection Time: 10/30/23 4:46 AM Result Value Ref Range Sodium 141 135 - 145 mmol/L Potassium, pl 4.3 3.3 - 4.9 mmol/L Chloride 103 97 - 110 mmol/L CO2 24 22 - 32 mmol/L Anion gap 14 2 - 15 mmol/L BUN 32 (H) 6 - 25 mg/dL Creatinine 3.00 (H) 0.60 - 1.10 mg/dL Glucose 175 70 - 199 mg/dL Calcium 8.6 8.5 - 10.3 mg/dL Bilirubin, total 0.2 0.1 - 1.2 mg/dL Protein, pl 6.8 6.5 - 8.5 g/dL Albumin 3.2 (L) 3.5 - 5.0 g/dL Alk phos 162 (H) 40 - 130 Units/L ALT 61 (H) 7 - 45 Units/L AST 17 10 - 45 Units/L Magnesium Collection Time: 10/30/23 4:46 AM Result Value Ref Range Magnesium 1.7 1.4 - 2.5 mg/dL Phosphorus Collection Time: 10/30/23 4:46 AM Result Value Ref Range Phosphorus, pl 4.4 2.3 - 4.5 mg/dL CBC without differential Collection Time: 10/30/23 4:46 AM Result Value Ref Range WBC 12.1 (H) 3.8 - 9.9 K/cumm Hgb 9.1 (L) 11.9 - 15.5 g/dL Hct 27.7 (L) 35.6 - 45.5 % Plt 268 150 - 400 K/cumm MPV 10.8 9.1 - 12.3 fL RBC 3.00 (L) 3.90 - 5.20 M/cumm MCV 92.3 81.3 - 96.4 fL MCH 30.3 27.1 - 33.3 pg MCHC 32.9 32.3 - 35.7 g/dL RDW CV 13.7 11.1 - 14.9 % RDW SD 46.4 35.7 - 48.1 fL NRBC abs 0.00 0.00 - 0.01 K/cumm eGFR Collection Time: 10/30/23 4:46 AM Result Value Ref Range eGFR 16 (L) >=60 mL/min/1.73 m2 POCT glucose Collection Time: 10/30/23 9:39 AM Result Value Ref Range Glucose, POC 143 70 - 199 mg/dL Glucose comment 1 Use This Result Glucose comment 2 RN/MD Notified Influenza A/B, RSV, and COVID-19 PCR Nasopharyngeal Collection Time: 10/30/23 10:08 AM Specimen: Nasopharyngeal Result Value Ref Range COVID-19 RNA Negative Negative Influenza A RNA Negative Negative Influenza B RNA Negative Negative RSV RNA Negative Negative POCT glucose Collection Time: 10/30/23 11:24 AM Result Value Ref Range Glucose, POC 209 (H) 70 - 199 mg/dL Glucose comment 1 Use This Result Glucose comment 2 RN/ Notified POCT glucose Collection Time: 10/30/23 12:56 PM Result Value Ref Range Glucose, POC 213 (H) 70 - 199 mg/dL Current Facility-Administered Medications Medication Dose Route Frequency Provider Last Rate Last Admin acetaminophen (TYLENOL) tablet 650 mg 650 mg oral Q4H PRN Luciano Jenkins MD Or acetaminophen (TYLENOL) 32 mg/mL oral liquid 650 mg 650 mg feeding tube Q4H PRN Luciano Jenkins MD Or acetaminophen (TYLENOL) suppository 650 mg 650 mg rectal Q4H PRN Luciano Jenkins MD albumin 25 % bottle 25 g 25 g intravenous PRN Jimbo Strauss MD aspirin enteric coated tablet 81 mg 81 mg oral Daily Luciano Jenkins MD benzonatate (TESSALON) capsule 100 mg 100 mg oral TID PRN Luciano Jenkins MD dextrose (GLUTOSE) 40 % gel 15 g 15 g oral Q15 Min PRN Luciano Jenkins MD Or dextrose (D10W) 10% bolus 250 mL 250 mL intravenous Q15 Min PATRICIAN Luciano Jenkins MD glucagon injection 1 mg 1 mg intramuscular Q30 Min Luciano Medrano MD heparin 1,000 unit/mL injection 1,500 Units 1,500 Units dialysis circuit Once Jimbo Strauss MD heparin 1,000 unit/mL injection 1.5-6.9 mL 1.5-6.9 mL intra-catheter PRN Markie Ryan MD heparin 1,000 unit/mL injection 500 Units 500 Units dialysis circuit PRN Markie Ryan MD heparin 5,000 unit/mL injection 5,000 Units 5,000 Units subcutaneous Q8H [facility] Luciano Jenkins MD 5,000 Units at 10/30/23 0641 insulin glargine (LANTUS, SEMGLEE) 100 unit/mL injection 16 Units 0.25 Units/kg subcutaneous Nightly Aylin Kauffman MD insulin lispro (HumaLOG, ADMELOG) 100 unit/mL injection 0-10 Units 0-10 Units subcutaneous TID withmeals Luciano Jenkins MD insulin lispro (HumaLOG, ADMELOG) 100 unit/mL injection 0-5 Units 0-5 Units subcutaneous Nightly Luciano Jenkins MD insulin lispro (HumaLOG, ADMELOG) 100 unit/mL injection 5 Units 0.083 Units/kg subcutaneous TID with meals Luciano Jenkins MD polyethylene glycol (MIRALAX) packet 17 g 17 g oral Daily PRN Luciano Jenkins MD Assessment/Plan 3 y.o. female with a PMHx significant for HTN, ESRD on HD, HLD, mild dementia AOx 4 at baseline presented with acute confusion at hemodialysis. Patient lives with the daughter, daughter reports that patient frequently has memory lapses, According to daughter patient was in her normal mentation when she was dropped off for dialysis. 2 hours later dialysis staff was concerned that patient had a change, they reported patient was actingunusual, had a drop in blood pressure and was changing color. Patient completed her dialysis, before coming to the ER. CT head was negative for any acute intracranial findings. 1. Acute encephalopathy with underlying dementia: MRI done today suggestive of small infarct in right temporal lobe Start on aspirin, statin, beta-roz Await echo and carotid ultrasound Neurology consult EEG Patient likely is back to baseline Will monitor leukocytosis along with any signs of infection 2. ESRD on hemodialysis: Patient had full dialysis yesterday We will get renal consult for further dialysis needs 3. Diabetes mellitus: Blood glucose checks t.i.d. a.c. and HS Continue with Lantus, sliding scale, mealtime bolus insulin Adjust dose as needed 4. DVT prophylaxis: Heparin subQ 5. Code status: Full 6. Disposition: Pending improvement My total encounter time on 10/30/2023 was 37 minutes which was spent in the activities documented inthe note. This includes time spent prior to the visit and after the visit in direct care of the patient. This time does not include time spent in any separately reportable services. Complexity:moderate For patients or family members viewing this note through [employer]: This note was written as a communication tool between healthcare providers and may contain technical language, terminology and abbreviations that is difficult to interpret without advanced medical training. If you have questions or concerns regarding what is written in this note, please request to speak with the primary medical team taking care of you or your family member Aylin Kauffman MD 10/30/2023 1:22 PM documented in this encounter H&P Notes * Luciano Jenkins MD - 10/29/2023 9:27 PM CDT Images from the original note were not included. History and Physical Date of Service: 10/29/2023 Primary Care Physician: Duane Corcoran MD [phone] CHIEF COMPLAINT: Patient is a 73 y.o. female with a PMHx significant for HTN, ESRD on HD, HLD, mild dementia AOx 4 at baseline. Presents to the ED with a chief complaint of acute confusion at HD. HPI: Daughter present at bedside, reports that patient does have moderate dementia, alert oriented x2 atbaseline. Patient lives with the daughter, daughter reports that patient frequently has memory lapses, gives examples that patient will start to cook something on the stove and forget which is why patient now lives with a daughter so that she can keep a close eye on her. She reports that patient was in her normal mentation when she was dropped off today at dialysis on 13:00. She states that around 15:00 she was called by the dialysis staff concerned that patient had had a change, they reported that patient was acting unusual, had a drop in her blood pressure and was changing color. However corey kevin also notes that dialysis staff wanted ED to know that patient session was restarted and completed after the blood pressure normalized and patient mentation seemed to be improving. However daughter reports that patient still seemed off, she states that she appeared to be almost contracted withdecreased responsiveness prompting her to bring her in for further evaluation. Past Medical History: Diagnosis [...] Diabetes Brother Review of Systems: Review of Systems Constitutional: Positive for fatigue. HENT: Negative for congestion. Eyes: Negative for pain. Respiratory: Positive for cough (per daughter). Negative for shortness of breath. Cardiovascular: Negative for chest pain. Gastrointestinal: Negative for abdominal pain, nausea and vomiting. Genitourinary: Negative for dysuria. Musculoskeletal: Negative for back pain. Neurological: Positive for headaches. Psychiatric/Behavioral: Positive for confusion (per daughter). OBJECTIVE: Vitals: Arrival Vitals Temp 10/29/23 1853 36.8 ??C (98.2 ??F) Pulse 10/29/23 1734 69 Resp 10/29/23 1734 18 BP 10/29/23 1734 170/80 SpO2 10/29/23 1734 100 % Temp src 10/29/23 1853 Oral Heart Rate Source -- Patient Position -- BP Location -- FiO2 (%) -- Most Recent : Vitals: 10/29/23 1734 10/29/23 1853 10/29/23 1900 10/29/23 2120 BP: 170/80 (!) 179/80 170/80 Pulse: 69 69 97 Resp: 18 12 19 Temp: 36.8 ??C (98.2 ??F) TempSrc: Oral SpO2: 100% 100% 100% Weight: 65 kg (143 lb 4.8 oz) Height: 157.5 cm (5' 2 ) Physical Exam: Physical Exam Vitals reviewed. Constitutional: General: She is not in acute distress. Appearance: She is not ill-appearing, toxic-appearing or diaphoretic. HENT: Head: Normocephalic and atraumatic. Right Ear: External ear normal. Left Ear: External ear normal. Nose: Nose normal. Mouth/Throat: Mouth: Mucous membranes are moist. Eyes: Extraocular Movements: Extraocular movements intact. Pupils: Pupils are equal, round, and reactive to light. Cardiovascular: Rate and Rhythm: Normal rate and regular rhythm. Pulses: Normal pulses. Pulmonary: Effort: Pulmonary effort is normal. Breath sounds: Normal breath sounds. Abdominal: General: There is no distension. Palpations: Abdomen is soft. Tenderness: There is no abdominal tenderness. Musculoskeletal: General: Normal range of motion. Cervical back: Normal range of motion. Right lower leg: No edema. Left lower leg: No edema. Skin: General: Skin is warm and dry. Neurological: Mental Status: She is alert. Cranial Nerves: No cranial nerve deficit. Sensory: No sensory deficit. Motor: No weakness. Comments: Alert, oriented times person and place, not year. NIH of 1 for missed year No facial droop No dysarthria or aphasia Able to complete lkgj-bz-xnue bilaterally, however has difficulty with ctzbvy-[id number] bilaterally Psychiatric: Mood and Affect: Mood normal. Behavior: Behavior normal. Lab/Radiology/Diagnostic Review: Recent Results (from the past 24 hour(s)) CBC with auto differential Collection Time: 10/29/23 6:26 PM Result Value Ref Range WBC 12.0 (H) 3.8 - 9.9 K/cumm Hgb 9.1 (L) 11.9 - 15.5 g/dL Hct 26.7 (L) 35.6 - 45.5 % Plt 225 150 - 400 K/cumm MPV 9.9 9.1 - 12.3 fL RBC 2.95 (L) 3.90 - 5.20 M/cumm MCV 90.5 81.3 - 96.4 fL MCH 30.8 27.1 - 33.3 pg MCHC 34.1 32.3 - 35.7 g/dL RDW CV 13.8 11.1 - 14.9 % RDW SD 45.3 35.7 - 48.1 fL NRBC abs 0.00 0.00 - 0.01 K/cumm Comprehensive metabolic panel Collection Time: 10/29/23 6:26 PM Result Value Ref Range Sodium 135 135 - 145 mmol/L Potassium, pl 3.9 3.3 - 4.9 mmol/L Chloride 97 97 - 110 mmol/L CO2 25 22 - 32 mmol/L Anion gap 13 2 - 15 mmol/L BUN 21 6 - 25 mg/dL Creatinine 2.10 (H) 0.60 - 1.10 mg/dL Glucose 129 70 - 199 mg/dL Calcium 8.4 (L) 8.5 - 10.3 mg/dL Bilirubin, total 0.2 0.1 - 1.2 mg/dL Protein, pl 7.1 6.5 - 8.5 g/dL Albumin 3.3 (L) 3.5 - 5.0 g/dL Alk phos 160 (H) 40 - 130 Units/L ALT 75 (H) 7 - 45 Units/L AST 28 10 - 45 Units/L Differential, auto Collection Time: 10/29/23 6:26 PM Result Value Ref Range Neutrophil abs 9.7 (H) 1.5 - 6.5 K/cumm Imm gran abs 0.1 0.0 - 0.1 K/cumm Lymphocyte abs 1.4 0.8 - 3.3 K/cumm Monocyte abs 0.7 0.2 - 0.8 K/cumm Eosinophil abs 0.0 0.0 - 0.5 K/cumm Basophil abs 0.0 0.0 - 0.1 K/cumm Neutrophil pct 80.9 % Imm gran pct 0.4 % Lymphocyte pct 12.0 % Monocyte pct 6.2 % Eosinophil pct 0.3 % Basophil pct 0.2 % eGFR Collection Time: 10/29/23 6:26 PM Result Value Ref Range eGFR 24 (L) >=60 mL/min/1.73 m2 Troponin T high-sensitivity series (baseline, 2hr, 4hr, 6hr) Collection Time: 10/29/23 6:26 PM Result Value Ref Range Trop T hs 41 (H) <=14 ng/L Urinalysis reflex to microscopic and culture Urine, clean voided Collection Time: 10/29/23 6:43 PM Specimen: Urine, clean voided Result Value Ref Range Color, ur Straw Yellow Clarity, ur Clear Clear Specific gravity, ur 1.011 1.003 - 1.030 pH, urine 7.0 Protein, ur ql 3+ (A) Negative Glucose, ur ql 2+ (A) Negative Ketones, ur Negative Negative Bilirubin, ur Negative Negative Blood, ur Trace (A) Negative Urobilinogen, ur <2.0 <2.0 mg/dL Nitrite, ur Negative Negative Leukocyte esterase, ur Negative Negative UA reflex comment Reflex to microscopic UA will be performed. Urinalysis, microscopic only Collection Time: 10/29/23 6:43 PM Result Value Ref Range WBC, ur 0-5 0 - 5 /HPF RBC, ur 0-2 0 - 2 /HPF Culture Reflex Comment Reflex conditions for urine culture (WBC >10) not met. Troponin T high-sensitivity 2-hour Collection Time: 10/29/23 8:07 PM Result Value Ref Range Trop T hs 39 (H) <=14 ng/L Trop T hs delta -2 ng/L Trop T hs interp Insignificant CT Head WO Contrast Result Date: 10/29/2023 BRAIN: Ventricles, cisterns and sulci are symmetric and normal in size and configuration. There aremoderate confluent and patchy areas of hypodensity in the periventricular, subcortical and deep white matter as evidence for chronic microvascular angiopathy, similar to prior exam. No intracranial hemorrhage is evident. EXTRA-AXIAL SPACES: No fluid collections. No mass effect. CALVARIUM: Appears intact. Hyperostosis frontalis interna incidentally noted. SINUSES/MASTOIDS: There is a large right mastoid effusion and small to moderate left mastoid effusion, similar to prior exam. ORBITS: No significant abnormality. OTHER: No other significant abnormality. IMPRESSION: No acute intracranial findings. Moderate chronic microvascular angiopathy, similar to prior exam. Large right mastoid effusion and small to moderate left mastoid effusion, similar to prior exam. XR Chest 1 Vw Portable Result Date: 10/29/2023 LUNGS: No focal consolidation or definite pleural effusion. No pneumothorax. HEART/MEDIASTINUM: Stable cardiomediastinal contour. LINES/TUBES: Right IJ central venous catheter with the tip in the distal SVC. BONES: No acute osseous abnormality. IMPRESSION: No acute cardiopulmonary abnormality. ASSESSMENT/PLAN: Principal Problem: Altered mental status, unspecified altered mental status type Resolved Problems: No resolved hospital problems. Confusion History of dementia: Patient presents with chief complaint of confusion during dialysis. Per daughter at bedside, does seem to be improving but still not yet back to baseline. At baseline patient is A&O x2. On current examination she is alert oriented times person and place, not year. Does seemslow in her responses and is having difficulty completing more complicated tasks such as touching fi yzhj-uu-xobu and then to examiner's finger. CVA workup has included CT head negative for acute intracranial pathology NIH of 1 for missed Orientation question . Will follow-up with MRI of the brain, echocardiogram and carotid Dopplers in the morning. Workup has otherwise included evaluation for: -infection: 1 of 4 sirs criteria, elevated white blood cell count. Chest x-ray negative for infectious infiltrative disease. COVID/viral respiratory panel pending. Urinalysis negative for acute cystitis. No findings on skin survey to suggest cellulitis. No nuchal rigidity. Abdominal examination unremarkable. -electrolyte derangements: Not appreciated on initial laboratory data. -hypo or hyperglycemia: Glucose 129 on presentation. -hypoxia/hypercapnia: Maintaining appropriate O2 saturations on room air. No respiratory distress or complaints. Bicarb within normal limits. -medication effect : Daughter reports that patient was on Zyprexa [facility], and also notes that the [facility] facility would not give her a prescription for the 1 mg of risperidone because she signed her out AMA, thus she reports that patient hasbeen getting 2 mg risperidone because of what she had at home. -urine drug screen pending -anemia: Hemoglobin stable at baseline -arrhythmia: Normal sinus rhythm on auscultation and EKG. Continue telemetry monitoring. Uncontrolled hypertension: Blood pressure 170 over 80s. Resume patient's home beta-roz. Monitorfor effect and add additional agents as needed HLD: continue statin DM II: Glucose 129 on presentation. Initiate insulin regimen similar to home. Diabetic restricted diet. End-stage renal disease on hemodialysis: Patient completed session today. Patient admitted for observation, consider Nephrology consultation if hospitalization prolonged. Schizophrenia Anxiety/depression: Continue Cogentin. Hold Risperdal for now. Normocytic anemia: Hemoglobin 9.1 grams/deciliter. Stable at patient's baseline. History DVT: Completed appropriate course of anticoagulation. VTE prophylaxis as outlined below during hospitalization ESTIMATED LENGTH OF STAY: Less than 2 midnights My total encounter time on 05/27/2023 was 60 minutes which was spent in the activities documented inthe note. This includes time spent prior to the visit and after the visit in direct care of the patient. This time does not include time spent in any separately reportable services. Medical Decision Making Complexity: Moderate DVT prophylaxis: High-risk, utilize subcutaneous heparin for VTE prophylaxis Full code per discussion with patients daughter/POA at bedside Voice recognition software MModal Fluency Direct may have been used to dictate and transcribe this document. Hook Puller variances may occur. Despite proofreading, typographical errors may occur. Luciano Jenkins MD 10/29/2023 9:27 PM documented in this encounter Procedure Notes * Wilner Buckley MD - 10/31/2023 1:24 PM CDTAssociated Order(s): EEG Reason for exam: passing out episodes Technical: This is a digitally recorded electroencephalogram. It was just over 32 minutes long. Theinternational 10-20 electrode placement system [...] suggests diffuse cerebral dysfunction, as can be seenencephalopathy due to various etiologies. No focal slowing no seizure like activity was observed. Correlation with clinical findings is needed. documented in this encounter Consult Notes * Delmar Mercer MD - 11/02/2023 1:58 PM CDT Images from the original note were not included. Name: Sixto Chakraborty : 1950 Date: 11/02/2023 Time: 14:58 Location of patient: [facility] Rm: [phone] Location of doctor: [place] [facility] Length of Consult: 40 minutes This evaluation was conducted via video telepsychiatry with the assistance of onsite staff. The patient has given consent for Telepsychiatry visit. Interim History of Present Illness: Sixto is a 73-year-old single female, residing with her daughterPTA with a history of schizophrenia vs. schizoaffective disorder and more recently in dementia, wasadmitted on 10/28 because of acute confusion during an episode of hypotension at dialysis, noted to have a small sober acute infarct in the posterior right temporal lobe. Psychiatry was initially consulted on 10/[address] Gomez noted at the time the patient had recently been hospitalized last month.Patient was restarted on Risperdal 1 mg in Cogentin at that time however s ludwin, the patient has not been taking such medication because of apparent concern for drug-induced parkinsonism. At that time the patient noted throughout the years having symptoms of depression and anxiety, but was fine today , absent any acute psychotic symptoms, SI or HI, and in collateral contact with the patient's daughter, Dr. Gomez noted that the daughter which the patient to be resumed on her Risperdal in Cogentin which she had not done well and other medications . No appreciablesigns or symptoms of parkinsonism were appreciated. Upon reevaluation today in follow-up from previous recommendations, Sixto presents as pleasant, cooperative, grossly oriented, knowing she's in a hospital, knowing it was just Mother's Day , mistakingly stating the year as 2013, however correcting herself. Her mood is good , her affect is bright and euthymic, and she tolerates restarting of her Risperdal and Cogentin without complaint.. Collateral: N/A Psychiatric Medications & Freq: Benztropine one mg HS, risperidone 1 mg HS Allergies: NKDA Mental Status Exam: Appearance and attire: Casually dressed in hospital clothing sitting up in her hospital bed, well groomed in NAD Attitude and behavior: She is pleasant, cooperative, engaging and impressing as reliable and without psychomotor abnormality Speech: Fluent, normal volume, rate, tone and prosody Affect and mood: Affect is bright, euthymic, mood is I'm good today . Association and thought processes: Linear, coherent, absent ALISSA or FOI Thought content: Denies SI, HI, paranoia or delusions Perception: Denies hallucinations, not RIS Sensorium: Alert Orientation: Oriented X2-3 Memory: Impaired to STM, and LTM Intellectual functioning: Average Insight: Mildly impaired Judgement: Mildly impaired in the context of the current situation Diagnosis: F0 3.90 unspecified dementia without behavioral disturbance; F 25.9 schizoaffective disorder, unspecified Risk Assessment: This 73-year-old female with prior history of schizoaffective disorder and more recently dementia, admitted with mental status concerns, whom psychiatry initially evaluated on 10/30 in resumed the patient's prior dosing of antipsychotic and Cogentin for a history of side effects related thereto, which the patient has tolerated well, is not exhibited a return of any type of Parkinsonian symptoms, and is absent any acute symptoms of psychosis or acute risk factors currently and appropriate for follow-up in the community upon discharge. Treatment Plan: General:Case management to assist with follow-up in the community upon discharge Level of Care: Per the primary team Psychiatric Clearance: Yes Observation level - 1:1 needed?:No Notes: Pharmacological:Continue respite all one mg HS in Cogentin 1 mg HS together with Rozerem 8 mg PRN for insomnia while continuing olanzapine 2.5 mg PRN agitation.. Therapy:Efforts towards orientation, familiarity and diurnal rhythm Follow up needed while in the hospital?: As needed Discussed plan with onsite seafood service team member: Kristyn Friedman RN Other: Thank you for the opportunity to participate in the care of this patient. Speech recognition software was used to create this note. Please disregard any inadvertent translation errors. Please call the office for any clarifications. Ruddy Mercer MD * Zina oMntilla, RD - 11/02/2023 12:43 PM CDTAssociated Order(s): IP CONSULT TO NUTRITION SERVICES NUTRITION ASSESSMENT Nutrition Status: Patient does not meet ASPEN criteria for malnutrition at this time. REASON FOR ASSESSMENT: Consult/Referral - CVA Encounter Date: 11/02/23 12:47 PM Admission Date: 10/29/2023 LOS: 3 days HPI: Patient is a 73 y.o. female with a PMHx significant for HTN, ESRD on HD, HLD, mild dementia AOx 4 at baseline. Presents to the ED with a chief complaint of acute confusion at HD. Daughter present at bedside, reports that patient does have moderate dementia, alert oriented x2 atbaseline. Patient lives with the daughter 10/30/23 - Consult for stroke protocol. Patient seen by RD services on previous admission 10/05-10/22/23, 12/06-12/18/22 at [facility]. 11/02/23 - Consult for CVA. Objective Past Medical History: Diagnosis Date Anemia Arthritis [...] PLACEMENT > 5 YEARS N/A 10/15/2023 Social History Tobacco Use Smoking status: Never Smokeless tobacco: Never Substance and Sexual Activity Drug use: Never Sexual activity: Not Currently Partners: Male Alcohol Use: Not At Risk (07/24/2023) AUDIT-C Frequency of Alcohol Consumption: Never Average Number of Drinks: Patient does not drink Frequency of Binge Drinking: Never MEDICATION/LAB REVIEW: Scheduled Meds: aspirin, 81 mg, oral, Daily atorvastatin, 40 mg, oral, Nightly benztropine, 1 mg, oral, Nightly [START ON 11/03/2023] darbepoetin isaiah, 40 mcg, intravenous, Weekly famotidine, 10 mg, oral, Daily fluticasone propionate, 2 spray, each nostril, Daily heparin, 5,000 Units, subcutaneous, Q8H SOL insulin glargine, 0.25 Units/kg, subcutaneous, Nightly insulin lispro, 0-10 Units, subcutaneous, TID with meals insulin lispro, 0-5 Units, subcutaneous, Nightly insulin lispro, 0.083 Units/kg, subcutaneous, TID with meals metoprolol tartrate, 6.25 mg, oral, BID risperiDONE, 1 mg, oral, Nightly Continuous Infusions: PRN Meds: acetaminophen OR acetaminophen OR acetaminophen benzonatate dextrose OR dextrose glucagon Dialysis Access Care AND heparin heparin OLANZapine polyethylene glycol ramelteon Recent Labs Lab Units 11/02/23 0443 10/31/23 0451 10/30/23 0446 SODIUM mmol/L 140 < > 141 POTASSIUM PLASMA mmol/L 4.6 < > 4.3 CHLORIDE mmol/L 106 < > 103 CO2 mmol/L 22 < > 24 BUN SERUM mg/dL 61* < > 32* CREATININE mg/dL 5.20* < > 3.00* [id number] mL/min/1.73 m2 8* < > 16* CALCIUM mg/dL 8.7 < > 8.6 ALBUMIN g/dL -- -- 3.2* PHOSPHORUS PLASMA mg/dL -- -- 4.4 MAGNESIUM mg/dL -- -- 1.7 < > = values in this interval not displayed. Recent Labs Lab Units 11/02/233 11/01/23 2040 11/01/23 1126 11/01/23 0816 11/01/23 0506 10/31/23 2245 10/31/232036 GLUCOSE mg/dL 127 -- -- -- 177 -- -- POC GLUCOSE MONITOR mg/dL -- 151 171 126 -- 124 74 No results found for: ALT , AST , BILIRUBIN , ALKPHOS , LIPASE Lab Results Component Value Date HGBA1C 8.2 (H) 10/08/2023 HDL 47 10/30/2023 LDLCALC 50 10/30/2023 CHOL 118 10/30/2023 TRIG 104 10/30/2023 NURSING ASSESSMENT: Last BM Date: 10/30/23 Bowel Sounds (All Quadrants): Active Timoteo Scale Score: 20 Skin Integrity: Abrasion Vital Signs BP: 155/57 Temp: 36.7 ??C (98.1 ??F) Pulse: 62 Resp: 18 SpO2: 99 % Intake/Output Summary (Last 24 hours) at 11/02/2023 1247 Last data filed at 11/01/2023 1900 Gross per 24 hour Intake 360 ml Output 300 ml Net 60 ml Adult Malnutrition Scoring Tool (MST) What diet do you follow at home?: Regular Have You Recently Lost Weight Without Trying?: No Have you been eating poorly because of a decreased appetite?: No Malnutrition Screening Tool (MST) Score: 0 Hunger Screen - Admission Within the past 12 months the food we bought just didn't last and we didn't have money to get more.: Never true Within the past 12 months we worried whether our food would run out before we got money to buy more.: Never true Within the past 12 months, you worried that your food would run out before you got the money to buymore.: Never true Within the past 12 months, the food you bought just didn't last and you didn't have money to get more.: Never true Anthropometrics Weight: 61.8 kg (136 lb 3.9 oz) Admission Weight : 65 kg Weight Change: -3.19 kg (-7.05 lbs) IBW/kg (Calculated) : 49.9 kg Height: 157.5 cm (5' 2 ) Weight in (lb) to have BMI = 25: 136.4 BMI (Calculated): 24.9 Wt Readings from Last 10 Encounters: 10/30/23 61.8 kg (136 lb 3.9 oz) 10/27/23 61.2 kg (135 lb) 10/15/23 61.6 kg (135 lb 12.8 oz) 09/03/23 58.5 kg (129 lb) 08/03/23 58.2 kg (128 lb 6.4 oz) 07/28/23 56.7 kg (125 lb) 07/24/23 56 kg (123 lb 6.4 oz) 06/30/23 60.8 kg (134 lb) 04/07/23 59.2 kg (130 lb 9.6 oz) 03/24/23 59 kg (130 lb) ESTIMATED NEEDS: Weight Used for Equation Calculations (RD Determined): 61.8 kg (136 lb 3.9 oz) Total Kcal/kg Estimated Needs : 1854 Kcal/k (per [employer] Recommendations). Type of Weight Used for Estimated Kcals: Current Total Protein Estimated Needs (gm): 74.16 Protein Needs Based on g/k.2 (per [employer] recommendations) Type of Weight Used for Estimated Protein : Current Total Fluid Estimated Needs: 1854 Fluid Needs Based on : 1 ml/kcal Type of Weight Used for Estimated Fluid Needs: Current Total Fluid Estimated Needs Comments:: UOP +750-1000, adult fluid minimum 1500 mL (per [facility] Recommendations) Dietary Orders (From admission, onward) Start Ordered 10/30/23 2100 Bedtime snack At bedtime Comments: If bedtime BG is less than 100mg/dl, give patient a 15 gram carbohydrate snack. 10/29/236 10/29/232244 Adult Diet Restricted; Cardiac (No caffeine, Low Na, Low Chol); 5 CHO/Meal; Yes, patient is receiving insulin; Renal Dialysis; 80 Grams (Pro); 1 Gram (Phos); 2 Grams (K+); 2 Grams (Na) Diet effective now Question Answer Comment (MHB/MHE) Diet type Restricted Fat / Sodium Restriction: Cardiac (No caffeine, Low Na, Low Chol) Diabetic: 5 CHO/Meal Patient receiving insulin: Yes, patient is receiving insulin Renal: Renal Dialysis Protein: 80 Grams (Pro) Phosphorus: 1 Gram (Phos) Potassium: 2 Grams (K+) Sodium: 2 Grams (Na) 10/29/232243 Allergies: Reviewed. IMPRESSION: Patient is on a cardiac (no caffeine, low Na, low Chol), 5 CHO/meal, Renal dialysis (80 gram Pro, 1gram Phos, 2 gram K+, 2 gram Na) diet with no meals documented as of yet. Patient stated she is notexperiencing any GI symptoms. Her appetite is good and she was eating good FILM WASHER - 3 meals a day. Shereports following a low sodium diet at home. Her UBW is around 140 lb and she has not noticed any weight loss. Weight history in EMR shows weight loss of 11.4% since 11/10/22 which is not significant for time period. Mainly weight gain noted. She denied any chewing/swallowing problems. New weight via bedscale 10/29 136 lb 3.9 oz. Per RN flowsheets 10/29, experiencing +1 RLE, LLE edema. UOP 500. LBM y day per patient. She is from home with daughter and will likely return after discharge. RD will continue to monitor. 11/02/23 - Patient continues on a cardiac (no caffeine, low Na, low Chol), 5 CHO/meal, Renal dialysis (80 gram Pro, 1 gram Phos, 2 gram K+, 2 gram Na) diet and consuming 88% for meals documented since10/30. Patient stated she is not experiencing any GI symptoms, she has not been to the bathroom yet.Her appetite is good. She had no questions at this time. LBM 10/29. New weight via bedscale 10/29 136lb 3.9 oz. Per RN flowsheets 10/31, experiencing +1 RLE, LLE edema. She is from home with daughter and will likely return after discharge. RD will continue to monitor. ASPEN MALNUTRITION ASSESSMENT: Date of completion: 10/30/23 ASPEN/AND Malnutrition Screening: Patient does not meet malnutrition criteria NUTRITION FOCUSED PHYSICAL EXAM: Completed. Subcutaneous Fat Loss Orbital Region - Surrounding the Eye: Slightly bulged fat pads Cheek Region - Buccal Fat: Full, round filled-out cheeks Upper Arm Region - Triceps/Biceps: Ample fat tissue obvious between folds of skin Muscle Loss Scientologist Region - Temporalis Muscle: Slight depression Clavicle Bone Region - Pectoralis Major, Deltoid, Trapezius Muscles: Not visible in male, visible but not prominent in female Clavicle and Acromion Bone Region - Deltoid Muscle: Rounded, curves at arm/shoulder/neck Dorsal Hand - Interosseous Muscle: Muscle bulges, could be flat in some well nourished people Anterior Thigh and Patellar Region - Quadricep Muscle: Well-rounded, well-developed Posterior Calf Region - Gastrocnemius Muscle: Well-developed bulb of muscle NUTRITION DIAGNOSIS: Nutrition Diagnosis 1: Increased nutrient needs (protein) Related to: ESRD Evidenced by: Patient interview, Dialysis treatments INTERVENTION(S): Summary: Assess for nutrition changes, Encouragement, Initial assessment 10/30/23 - RD encouraged patient to eat the best she can. 11/02/23 - Patient had questions over what grandkids are able to eat while here to visit, RD suggested coffee shop food/snacks, ordered a guest tray. Patient had no questions over diet. GOAL(S): Adequate nutrition to meet estimated needs by next assessment, Oral intake to meet 75% estimated nutritional needs by next assessment MONITORING/EVALUATION: Discharge plans, I/O, Labs, Plan of care, PO intake Diet Instructions Continue to follow a renal diet that is low in sodium, potassium, and phosphorus. Avoid/limit foodssuch as fast food items, fried/breaded foods, canned goods, deli meats, gravies/sauces, bananas, tomatoes, oranges, milk, dark annie and chocolate. Lane juice, citrus juices, and tomato juice are also high in potassium. Do not use salt substitutes, as they may contain potassium. Drink Nepro 1-2 times daily as able to increase calories and protein intake. If interested in outpatient nutrition counseling, ask your doctor for referral then call [phone] to schedule an appointment. Call [phone] to speak with a dietitian about any diet related concerns. Additional resources available online from the [employer] at www.kidney.org/nutrition * Daisy Gomez DO - 10/31/2023 10:47 PM CDTAssociated Order(s): IP CONSULT TO PSYCHIATRY Telepsychiatry Consult Note Note entered at: 10:47 AM Patient Name: Sixto Chakraborty Date of : 1950 Medical Record: [id number] Name: Sixto Chakraborty : 1950 Date and Time: 11/01/2023 10:47:00 AM Location of the patient: [facility] Location of the doctor: [place] Length of consult: 60min This evaluation was conducted via video telepsychiatry with the assistance of onsite staff Reason for consult: Consult for Med Rec Requested by: Monserrat Hinton History of Present Illness: 73yo female with hx of schizophrenia vs schizoaffective disorder, dementia who was admitted on 10/28 for acute confusion during episode of hypotension during dialysis and was found to have small acute to subacute infarct in the posterior right temporal lobe. Psychiatry consulted for medication evaluation. Patient was recently hospitalized last month and psychiatry was consulted at that time due to confusion. Patient was restarted on Risperdal 1mg and Cogentin at that time. This admission, patient has not been restarted on Risperdal or Cogentin due to concern for druginduced parkinsonism. Patient states I'm fine today and says mood is pretty good. Denies depressed mood or anxiety currently but says depression has been present off and on for several years but denies significant concerns with mood recently. She says she takes Risperdal but does not recall her previous psychiatric diagnoses and says her daughter would remember this information. She says she has been hospitalized in the past in IP psych due to I was losing my mind and thought about ending my life and says this was 1 or 2 years ago and denies any similar thoughts since that time. Patient currently denies SI, HI, or AVH. She says she lives with her daughter and says she knows baby is fine which daughter notes that patient is referring to her great grand son that was staying with. Daughter says that mary ann ent refers to him as baby. Patient says sleep is up and down' and says her legs cause her pain which disrupts sleep. She believes this is why she is in the hospital but isn't sure. She provides consent to reach out to daughter for collateral. Spoke to daughter, Areli on the phone, who says that patient was confused during hemodialysis and staring off which was abnormal for her. She says that patient has been taking Risperdal 1mg and Cogentin 1.5mg and feels these medications have been working well for her and prefers to not have these medications changed due to becoming confused or hearing voices and becoming more paranoid when she has tried other medications in the past. Patient was recently off Risperdal for over a year and then restarted them about 2 months ago as patient was talking to self mom/responding to internal stimuli, pacing the house, worrying constantly about her great grand son age 1.5 who had been staying with them until recently and pt thought someone had stole him. She feels these symptoms all improved with Risperdal was started. She says that during the time that patient was not on Risperdal, she remained on Cogentin so she is unsure if the tremor symptoms changed when patient stopped taking it. She says the tremors are better on Cogentin and also when patient was in a Parkinson program last yearthat included hand exercises. Daughter prefers that patient restart Risperdal and Cogentin as patient does not do well with other antipsychotic agents she has tried in the past and daughter says patient was diagnosed with schizophrenia vs schizoaffective disorder over 20 uears ago but can recall patient having symptoms when she was a child. Collateral Contacted: Yes Collateral name: Areli Gayle Collateral 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: [phone] Collateral relationship to the patient: daughter Sleep issues?: No Psychiatric History/Treatment History: Past diagnoses: schizophrenia vs schizoaffective disorder, dementia Hospitalizations: No Current Treatment: yes Suicide Assessment: PSS-3: 1) Over the past 2 weeks have you felt down, depressed or hopeless? Yes 2) Over the past 2 weeks have you had thoughts of killing yourself? No 3) Have you ever in your life attempted to kill yourself? No Within the past 6 months? [facility] Safety [facility]: Risk Factors Stressors: Attempts/Self-injury: No Impulsivity:No Drug/Alcohol History:No Trauma History:Unknown-NA Access to firearms:No HI/Violence/Property destruction:No Legal: No Family Psych History:Unknown-NA Family History of suicide:No Protective Factors: Can handle stress well? No Pentecostal? Yes External: Social supports/ Therapeutic relationships: Yes Description: daughter Relationship history: Living situation: lives with daughter Employment: No Education: HS grad Responsibility to family/children/work: Yes Description: Future orientation:Yes Description: Health History: Medical History: Patient Active Problem List Diagnosis Diabetic neuropathy ([facility]) Type 2 diabetes mellitus with diabetic neuropathy, with long-term current use of insulin ([facility]) Primary hypertension Amputation of toe of right foot ([facility]) ([facility]) Iron deficiency anemia Gastroesophageal reflux disease without esophagitis Mixed hyperlipidemia Schizoaffective disorder, bipolar type ([facility]) ([facility]) 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 2 diabetes mellitus ([facility]) ([facility]) Encounter for Medicare annual wellness exam Late onset Alzheimer's dementia without behavioral disturbance ([facility]) Volume overload Anemia Toe necrosis ([facility]) ([facility]) Physical deconditioning Left leg DVT ([facility]) Pulmonary nodule Retention of urine, unspecified Unspecified osteoarthritis, unspecified site Unsteadiness on feet Weakness Parkinsonism ([facility]) Wheezing Anemia in stage 4 chronic kidney disease ([facility]) Osteomyelitis of great toe of right foot ([facility]) ([facility]) Abnormal urinalysis Acute kidney injury superimposed on CKD ([facility]) Acute on chronic diastolic congestive heart failure ([facility]) ([facility]) Bibasilar consolidations Movement disorder Shortness of breath GI bleed Bandemia Leg swelling Diabetes mellitus with hyperglycemia ([facility]) ([facility]) Dyslipidemia Alzheimer's dementia ([facility]) Altered mental status, unspecified altered mental status type AMS (altered mental status) ESRD (end stage renal disease) on dialysis ([facility]) Medications & Freq: Current Facility-Administered Medications Medication Dose Route Frequency Provider Last Rate Last Admin acetaminophen (TYLENOL) tablet 650 mg 650 mg oral Q4H PRN Luciano Jenkins MD Or acetaminophen (TYLENOL) 32 mg/mL oral liquid 650 mg 650 mg feeding tube Q4H PRN Luciano Jenkins MD Or acetaminophen (TYLENOL) suppository 650 mg 650 mg rectal Q4H PRN Luciano Jenkins MD aspirin enteric coated tablet 81 mg 81 mg oral Daily Luciano Jenkins MD 81 mg at 420 atorvastatin (LIPITOR) tablet 40 mg 40 mg oral Nightly Charlotte Bird MD 40 mg at 10/31/23 2256 benzonatate (TESSALON) capsule 100 mg 100 mg oral TID PRN Luciano Jenkins MD dextrose (GLUTOSE) 40 % gel 15 g 15 g oral Q15 Min PRN Luciano Jenkins MD Or dextrose (D10W) 10% bolus 250 mL 250 mL intravenous Q15 Min PRN Luciano Jenkins MD famotidine (PEPCID) tablet 10 mg 10 mg oral Daily Aylin Kauffman MD 10 mg at 10/31/23 1420 fluticasone propionate (FLONASE) 50 mcg/actuation nasal spray 2 spray 2 spray each nostril Daily Aylin Kauffman MD 2 spray at 10/31/23 1422 glucagon injection 1 mg 1 mg intramuscular Q30 Min PRN Luciano Jenkins MD heparin 1,000 unit/mL injection 1.5-6.9 mL 1.5-6.9 mL intra-catheter PRN Markie Ryan MD 4 mL at 10/31/23 1109 heparin 1,000 unit/mL injection 1.5-6.9 mL 1.5-6.9 mL intra-catheter Once Markie Ryan MD heparin 1,000 unit/mL injection 500 Units 500 Units dialysis circuit PRN Markie Ryan MD heparin 1,000 unit/mL injection 500 Units 500 Units dialysis circuit Q1H Markie Ryan MD heparin 5,000 unit/mL injection 5,000 Units 5,000 Units subcutaneous Q8H [facility] Luciano Jenkins MD 5,000 Units at 10/31/232255 insulin glargine (LANTUS, SEMGLEE) 100 unit/mL injection 16 Units 0.25 Units/kg subcutaneous Nightly Aylin Kauffman MD 16 Units at 10/31/232256 insulin lispro (HumaLOG, ADMELOG) 100 unit/mL injection 0-10 Units 0-10 Units subcutaneous TID withmeals Luciano Jenkins MD 4 Units at 10/30/23 130 insulin lispro (HumaLOG, ADMELOG) 100 unit/mL injection 0-5 Units 0-5 Units subcutaneous Nightly Luciano Jenkins MD 1 Units at 10/30/232049 insulin lispro (HumaLOG, ADMELOG) 100 unit/mL injection 5 Units 0.083 Units/kg subcutaneous TID with meals Luciano Jenkins MD 5 Units at 10/31/231827 metoprolol tartrate (LOPRESSOR) immediate release split tablet 6.25 mg 6.25 mg oral BID Aylin Kauffman MD 6.25 mg at 10/31/232255 polyethylene glycol (MIRALAX) packet 17 g 17 g oral Daily PRN Luciano Jenkins MD ramelteon (ROZEREM) tablet 8 mg 8 mg oral Nightly PRN Aylin Kauffman MD sodium chloride 0.9% bolus 200 mL 200 mL intravenous PRN Markie Ryan MD Allergies: NKDA Mental Status Exam: Appearance and Attire: Good eye contact, in hospital attire, sitting upright in bed Psychomotor agitation: No abnormality Attitude and behavior: Cooperative Speech: Soft Mood: Dysthymic Affect: Constricted Thought process: Linear, Coherent, Not tangential Thought content: No suicidal ideation, No homicidal ideation, No paranoia Perception: No hallucinations Intel: Average Abstract: Embarrass Language: No abnormality Orientation: Oriented to person, Oriented to place, disoriented to situation; partially oriented totime- knows month is october and year is 2023 and says day is however she does know that day of the week is thursday Sense: Normal Knowledge: Appropriate for education and socioeconomic status Memory: Impaired to Remote recall, Can spell world forwards, Can spell world backwards Insight: Lack of awareness of problems, Moderate impairment Judgement: Impaired in responses to current situation and behavior Gait: sitting upright in bed, gait not assessed Impression/Risk Assessment: Current Suicide Risk Elevated? No Current Violence Risk Elevated? No Issues with ability to care for self? Yes Summary: 73yo female with history of schizoaffective disorder and dementia who was admitted on to mental status concerns, she came from . Pt was on risperdal 1mg and cogentin 1.5mg which were restarted about 2 months ago after being off the medication for a year. Daughter noticed a significant worsening of patient responding to internal stimuli and asked for the medication to be restarted. She feels that patient had been doing a lot better regarding the paranoid and delusional thoughts and was responding less to internal stimuli. 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 She also says that patient was in a Parkinson program for exercises last year and she felt that this helped with the tremor symptoms as well. She says that patient becomes more confused when she has triedalternative antipsychotic medication and she would prefer for patient to restart Risperdal and Cogentin due to significant worsening of psychotic symptoms when patient stops medication and when she has tried other medications. Diagnosis: F03.90 Unspecified dementia without behavioral disturbance, F25.9 Schizoaffective disorder, unspecified CPT Codes: 70016 - Psychiatric Diagnostic Evaluation with Medical Services Treatment Plan: General: 1. Patient does not meet criteria for inpatient psychiatry admission. 2. Recommend restarting Risperdal 1mg nightly for mood. 3. Restart Cogentin at 1mg nightly for tremor symptoms. Will restart at lower dose as Cogentin can contribute to confusion. May consider increasing back to 1.5mg qHS if needed (patient's home dose). 4. Recommend Rozerem 8mg nightly prn for sleep. 4. Patient is not currently exhibiting agitation, however patient does have hx of agitation in the past when confused/AMS. Recommend Zyprexa 2.5mg q8h prn if agitation becomes a concern. Level of Care: medical inpt- defer to primary team; pt does not meet criteria for inpt psych Psychiatric Clearance: Yes Observation level - 1:1 needed?: No Pharmacological: see above Patient psychotic?No Therapy: supportive Follow up needed while in the hospital?: Yes Follow up Frequency: 48hr to reassess medication response Discussed plan with onsite seafood service team member: Yes Who [facility] Other: * Monserrat Hinton LCSW - 10/31/2023 2:32 PM CDTAssociated Order(s): CONSULT TO [facility]) [facility] Consult Note - Telepsychiatry Request Date: 10/31/2023 Patient Name: Sixto Chakraborty Medical Record: [id number] Date of : 1950 [facility] consult ordered by Charlotte Murillo MD for Reason for consult medications recommendations/management , patient has history of schizophrenia possible drug- induced parkinsonism, . A consult to Psychiatry has already been entered by provider. [facility] will notify Psychiatry. Per EMR,patient has not expressed any thoughts of harming self or others. C-SSRS risk upon admission was norisk At 1438 [facility] entered a inpatient urgent video consult, which has a median time of EIGHT hours to becompleted into the [facility] Portal. Reason for consult: medications recommendations/management , patient has history of schizophrenia possible drug-induced parkinsonism [facility] staff will be contacting [facility] at 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: [phone]. Psychiatrist will use this number to start video assessment as well. Please have equipment charged and ready. Device ID given to [facility] is: [employer] iPad [id number]. [facility] will monitor consult timeframe and contact [facility] as necessary. For inpatient consults, [facility] should not call after 2300 to start a consult and patient will be seen the next morning. For EmergencyDepartment consults, [facility] sees the patient /. [facility] messaged with Kristyn Blake, ALIREZA at [facility] and updated them on status. Thank you for the opportunity to participate in this patient's care. Monserrat Hinton LCSW [facility] * Wilner Buckley MD - 10/31/2023 12:47 PM CDTAssociated Order(s): IP CONSULT TO NEUROLOGY Images from the original note were not included. [facility] Neu[facility] Consultation Date of admission: 10/29/2023 Requesting Provider: Charlotte Bird MD Reason for Consult: Stroke History of Present Illness: 73-year-old female with a history of dementia, parkinsonism? drug-induced, schizophrenia, she presents with altered mental status. She has a history of inconsistent follow-up and has presented to numerous facilities. She was just evaluated by a neurologist at an outlying hospital 3 weeks ago for altered mental status. She has underlying dementia. 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 Most recently I see Risperdal and olanzapine listed, unclear which she has been taking and how much. Unclear if she is on any long-acting injectable antipsychotics as well. When seen today is noted to have moderate resting tremor in all 4 extremities, more prominent onthe left, with some rigidity that is actually more prominent on the right. She was recently startedon dialysis, and she had an episode yesterday when she lost consciousness during dialysis. This wasassociated with hypotension. No formal diagnosis of neuropathy but also complains of burning in herfeet. Multiple reasons that she could have orthostatic hypotension. Past Medical History: Diagnosis Date Anemia Arthritis CHF (congestive heart failure) ([facility]) ([facility] [...] YEARS N/A 10/15/2023 HOME MEDICATIONS : acetaminophen (TYLENOL) 325 mg tablet atorvastatin (LIPITOR) 20 mg tablet benztropine (COGENTIN) 1 mg tablet blood-glucose sensor (FreeStyle Madhav 3 Sensor) device calcium acetate,phosphat bind, (PHOSLO) 667 mg capsule famotidine (PEPCID) 10 mg tablet ferrous sulfate 325 mg (65 mg of elemental iron) tablet flash glucose scanning reader [facility] flash glucose sensor (FreeStyle Madhav 2 Sensor) kit fluticasone propionate (FLONASE) 50 mcg/actuation nasal spray insulin glargine 100 unit/mL (3 mL) pen for injection insulin lispro (HumaLOG, ADMELOG) 100 unit/mL vial for injection lidocaine (ASPERCREME) 4 % adhesive patch,medicated metoprolol tartrate (LOPRESSOR) 25 mg immediate release tablet OLANZapine (ZyPREXA) 2.5 mg tablet pen needle, diabetic 32 gauge x 5/32 needle polyethylene glycol (MIRALAX) 17 gram/dose bulk powder ramelteon (ROZEREM) 8 mg tablet risperiDONE (RisperDAL) 1 mg tablet omeprazole (PriLOSEC) 20 mg capsule Current Facility-Administered Medications Medication Dose Route Frequency Provider Last Rate Last Admin acetaminophen (TYLENOL) tablet 650 mg 650 mg oral Q4H PRN Luciano Jenkins MD Or acetaminophen (TYLENOL) 32 mg/mL oral liquid 650 mg 650 mg feeding tube Q4H PRN Luciano Jenkins MD Or acetaminophen (TYLENOL) suppository 650 mg 650 mg rectal Q4H PRN Luciano Jenkins MD aspirin enteric coated tablet 81 mg 81 mg oral Daily Luciano Jenkins MD 81 mg at atorvastatin (LIPITOR) tablet 40 mg 40 mg oral Nightly Charlotte Bird MD benzonatate (TESSALON) capsule 100 mg 100 mg oral TID PRN Luciano Jenkins MD dextrose (GLUTOSE) 40 % gel 15 g 15 g oral Q15 Min PRN Luciano Jenkins MD Or dextrose (D10W) 10% bolus 250 mL 250 mL intravenous Q15 Min PRN Luciano Jenkins MD famotidine (PEPCID) tablet 10 mg 10 mg oral Daily Aylin Kauffman MD 10 mg at 10/30/23 1203 fluticasone propionate (FLONASE) 50 mcg/actuation nasal spray 2 spray 2 spray each nostril Daily Aylin Kauffman MD 2 spray at 10/30/23 1440 glucagon injection 1 mg 1 mg intramuscular Q30 Min PRN Luciano Jenkins MD heparin 1,000 unit/mL injection 1.5-6.9 mL 1.5-6.9 mL intra-catheter PRN Markie Ryan MD 4 mL at 10/31/23 1109 heparin 1,000 unit/mL injection 500 Units 500 Units dialysis circuit PRN Markie Ryan MD heparin 5,000 unit/mL injection 5,000 Units 5,000 Units subcutaneous Q8H SOL Luciano Jenkins MD 5,000 Units at 10/31/23 0503 insulin glargine (LANTUS, SEMGLEE) 100 unit/mL injection 16 Units 0.25 Units/kg subcutaneous Nightly Aylin Kauffman MD 16 Units at 10/30/232048 insulin lispro (HumaLOG, ADMELOG) 100 unit/mL injection 0-10 Units 0-10 Units subcutaneous TID withmeals Luciano Jenkins MD 4 Units at 10/30/23 1301 insulin lispro (HumaLOG, ADMELOG) 100 unit/mL injection 0-5 Units 0-5 Units subcutaneous Nightly Luciano Jenkins MD 1 Units at 10/30/23 205 insulin lispro (HumaLOG, ADMELOG) 100 unit/mL injection 5 Units 0.083 Units/kg subcutaneous TID with meals Luciano Jenkins MD 5 Units at 10/30/23 175 metoprolol tartrate (LOPRESSOR) immediate release split tablet 6.25 mg 6.25 mg oral BID Aylin Kauffman MD 6.25 mg at 10/30/232048 polyethylene glycol (MIRALAX) packet 17 g 17 g oral Daily PRN Luciano Jenkins MD ramelteon (ROZEREM) tablet 8 mg 8 mg oral Nightly PRN Aylin Kauffman MD No Known Allergies Social History Tobacco Use [...] Diabetes Sister Diabetes Brother Review of Systems: A ten system review of constitutional, cardiovascular, respiratory, musculoskeletal, endocrine, skin, SHEENT, genitourinary, psychiatric and neurologic systems was obtained and is unremarkable with the exception of the following: Vitals: 24 hr Min/Max: Temp Min: 36.5 ??C (97.7 ??F) Max: 37.1 ??C (98.8 ??F) Pulse Min: 64 Max: 79 BP Min: 105/56 Max: 194/74 Resp Min: 14 Max: 18 SpO2 Min: 98 % Max: 100 % Most Recent: Vitals: 10/31/23 1124 BP: Pulse: 69 Resp: 16 Temp: 36.5 ??C (97.7 ??F) SpO2: 98% Height: 157.5 cm (5' 2 ) Weight: 61.8 kg (136 lb 3.9 oz) BMI (Calculated): 24.9 I/O last 2 completed shifts: In: 600 [P.O.:600] Out: - I/O this shift: In: 750 [I.V.:250; Other:500] Out: 1500 [Other:1500] Physical Exam General: GEN: NAD, pleasant, cooperative CVS: RRR, normal radial pulse CHEST: No signs of resp distress, on room air ABD: Soft, NTTP. Neuro: Mental Status: Alert and oriented x2. Language: fluent with good comprehension. Recent & Remote Memory: Impaired Attention Span & Concentration: Intact II, III, IV, : visual cavanaugh full to confrontation; pupils equal, round, and reactive to light; full extraocular movements V: facial sensation intact to light touch VII: facial expression full and symmetric VIII: Normal hearing to voice IX, X: palate elevates in the midline; speech is not hoarse or dysarthric XI: shoulder shrug has full power XII: tongue protrudes in the midline Motor: Muscle bulk normal, tone increased in the uppers right greater than left. Strength is 4+/5 in all four extremities both proximally and distally. Moderately prominent resting tremor increases with distraction, present more notably in the left hand left foot but is in all 4 extremities. Sensory: Sensation is intact to pain and to light touch throughout. Reflexes:DTRs decreased but symmetric throughout. Babinski with downgoing toes bilaterally. Coordination: No dysmetria on [id number] Gait: Unable to ambulate safely due to current medical condition. Lab/Radiology/Diagnostic Review: Laboratory review: Chemistry CMP: Lab Results Component Value Date ALBUMIN 3.2 (L) 10/30/2023 BUNSER 44 (H) 10/31/2023 CALCIUM 8.6 10/31/2023 CO2 22 10/31/2023 CHLORIDE 108 10/31/2023 CREATININE 4.00 (H) 10/31/2023 GLUCOSE 90 10/31/2023 GLUCOSE 97 10/31/2023 POTASSIUM 4.7 10/31/2023 SODIUM 141 10/31/2023 BILITOT 0.2 10/30/2023 PROT 6.8 10/30/2023 ALT 61 (H) 10/30/2023 AST 17 10/30/2023 ALKPHOS 162 (H) 10/30/2023 , CBC: Lab Results Component Value Date WBC 10.1 (H) 10/31/2023 RBC 2.75 (L) 10/31/2023 HGB 8.3 (L) 10/31/2023 HCT 25.9 (L) 10/31/2023 MCV 94.2 10/31/2023 MCH 30.2 10/31/2023 MCHC 32.0 (L) 10/31/2023 RDWCV 13.6 10/31/2023 RDWSD 47.0 10/31/2023 MPV 10.4 10/31/2023 NRBCABS 0.00 10/31/2023 , Coags: No results found for: PT , PTT , APTT , FFN , FIBRINOGEN , INR , ACTIVATEDCL , Lipids: Lab Results Component Value Date CHOL 118 10/30/2023 HDL 47 10/30/2023 LDLCALC 50 10/30/2023 TRIG 104 10/30/2023 CHOLHDL 3 10/30/2023 , and Cardiac Enzymes: Lab Results Component Value Date TROPTHS 37 (H) 10/30/2023 TROPTHS 38 (H) 10/29/2023 TROPTHS 39 (H) 10/29/2023 TROPTHS 41 (H) 10/29/2023 Additional (if available): Lab Results Component Value Date HGBA1C 8.2 (H) 10/08/2023 , Lab Results Component Value Date LDLCALC 50 10/30/2023 , Lab Results Component Value Date TSH 1.52 09/02/2021 Imaging Results for orders placed or performed [...] James Javier M.D. MZ: VALENTINA Report ID: [id number] Reading Location: [id number] CT Head WO Contrast Narrative EXAM DESCRIPTION: CT HEAD WO CONTRAST REASON FOR STUDY: Mental status change, unknown cause TECHNIQUE: Axial images acquired through the brain without intravenous contrast. Images stored on PACS. Automated exposure control was used as a dose optimization technique for this examination. COMPARISON: 10/11/2023. FINDINGS: BRAIN: Ventricles, cisterns and sulci are symmetric and normal in size and configuration. There are moderate confluent and patchy areas of hypodensity in the periventricular, subcortical and deep white matter as evidence for chronic microvascular angiopathy, similar to prior exam. No intracranial hemorrhage is evident. EXTRA-AXIAL SPACES: No fluid collections. No mass effect. CALVARIUM: Appears intact. Hyperostosis frontalis interna incidentally noted. SINUSES/MASTOIDS: There is a large right mastoid effusion and small to moderate left mastoid effusion, similar to prior exam. ORBITS: No significant abnormality. OTHER: No other significant abnormality. IMPRESSION: No acute intracranial findings. Moderate chronic microvascular angiopathy, similar to prior exam. Large right mastoid effusion and small to moderate left mastoid effusion, similar to prior exam. THIS IS AN ELECTRONICALLY VERIFIED FINAL REPORT 10/29/2023 8:34 PM - Electronically signed by Larry Vail M.D., Jeff.O. Larry Vail M.D., Jeff.O. MW: KLEVER Report ID: [id number] Reading Location: [id number] *Note: Due to a large number of results and/or encounters for the requested time period, some results have not been displayed. A complete set of results can be found in Results Review. Other studies: Assessment and Plan: 73-year-old female with a history of dementia, parkinsonism, schizophrenia. Had an episode of losing consciousness during dialysis. Suspect this was hypotensive in etiology. She appears to have some underlying neuropathy, likely related to poorly controlled diabetes. In addition she has been havingparkinsonism, and her antipsychotic meds can cause orthostatic hypotension. Appears most recently she was on Risperdal, and this medication can be worse for parkinsonism then some of the other atypical antipsychotics, could consider switching. Will defer this decision to Psychiatry, as they are being consulted as well. Not planning to start on any Sinemet at this point, as need to further clarifythe drug-induced component of her parkinsonism, and adjust antipsychotics if needed. With her schizophrenia and dementia she would also be more prone to side effects with Sinemet such as hallucination and confusion This note is transcribed using MModal, despite my best efforts, ceramic research engineer errors can occur. Please do not hesitate to contact me personally if you have any questions. * Markie Ryan MD - 10/31/2023 11:23 AM CDTAssociated Order(s): IP CONSULT TO NEPHROLOGY Nephrology Consult Reason for Consult: ESRD on HD, Requesting Provider: Dr. Bird Subjective Patient is a 73 y.o. female with chief complaint of altered mental status. HPI: This is a patient was admitted with altered mental status. She was initiated on hemodialysis duringa hospitalization at [facility] and went to outpatient dialysis on episodes of confusion and reported abnormal movements of her extremities. I have seen her in the office previously although intermittently and not for some time as she is often been hospitalized elsewhere. She has a history of diabetes since 1997 and a more recent history of hypertension. She has a history of schizophrenia with previous significant difficulty controllingher glucose. Also a likely history of dementia. She has a history of diastolic heart failure. She is just completing her hemodialysis session here today and has a right IJ tunneled catheter in place.She has in no acute distress. Apparently has a new diagnosis of Parkinson's since I last saw her. MRA yesterday revealed possible acute to subacute infarct in the posterior right temporal lobe and likely significant chronic microvascular ischemia. No significant carotid stenosis by Doppler. Past Medical History: Diagnosis Date Anemia Arthritis [...] Medication Sig Dispense Refill Last Dose acetaminophen (TYLENOL) 325 mg tablet Take 2 tablets (650 mg total) by mouth every 6 (six) hours asneeded for pain 30 tablet 1 atorvastatin (LIPITOR) 20 mg tablet Take 1 tablet (20 mg total) by mouth nightly 90 tablet 0 benztropine (COGENTIN) 1 mg tablet Take 1.5 tablets (1.5 mg total) by mouth nightly (Patient not taking: Reported on 2023) 45 tablet 0 blood-glucose sensor (FreeStyle Madhav 3 [...] times a day flash glucose scanning reader [facility] Use Madhav 3 reader to scan [...] (two) times a day as needed (psychosis) (Patient not taking: Reported on 2023) 20 tablet 0 pen needle, diabetic 32 [...] (1 mg total) by mouth nightly No Known Allergies Social History Tobacco Use [...] Brother Review of Systems: Constitutional: Negative for appetite change and fatigue. HENT: Negative. Eyes: Negative. Respiratory: Negative for cough, chest tightness and shortness of breath. Cardiovascular: Negative for chest pain, palpitations and leg swelling. Gastrointestinal: Negative for abdominal pain and nausea. Endocrine: Negative for polydipsia and polyuria. Genitourinary: Negative for decreased urine volume, difficulty urinating, dysuria, flank pain, frequency, hematuria and urgency. Musculoskeletal: Negative for joint swelling and myalgias. Skin: Negative for color change and rash. Allergic/Immunologic: Negative. Neurological: Negative for dizziness, weakness and light-headedness. Hematological: Negative. Psychiatric/Behavioral: Negative. Review of systems negative although answers are questionable Objective Vitals: 24hr Min/Max: Temp Min: 36.8 ??C (98.2 ??F) Max: 37.1 ??C (98.8 ??F) Pulse Min: 64 Max: 79 BP Min: 105/56 Max: 194/74 Resp Min: 14 Max: 18 SpO2 Min: 97 % Max: 100 % Most Recent: Vitals: 10/31/23 1105 BP: 105/56 Pulse: 79 Resp: Temp: SpO2: Physical Exam: Constitutional: Ill-appearing in no acute distress Head: Normocephalic and atraumatic. Eyes: EOM are normal. Neck: Normal range of motion. Cardiovascular: Normal rate and regular rhythm. Pulmonary/Chest: Diminished breath sounds bilaterally Abdominal: Soft. Bowel sounds are normal. Musculoskeletal: Limited range of motion with 1+ bilateral lower extremity edema Neurological: Alert and oriented to person Skin: Skin is warm and dry. Psychiatric: Normal mood and affect. Assessment /Plan Principal Problem: Altered mental status, unspecified altered mental status type Active Problems: AMS (altered mental status) ESRD on hemodialysis. Presentation with reported altered mental status occurring during outpatient hemodialysis. 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 Questionable acute to subacute infarct on MRI. Avoid over control of blood pressure for now. Anemia but will hold off on erythropoietin analog for now with recent events and can reassess. Underlying history of schizoaffective disorder along with presumed dementia. She is not a good candidate for chronic dialysis given these issues and unfortunately may have more rapid deterioration of her SURGICAL TECHNICIAN symptoms on dialysis. Tolerating session today without acute issue but will have ongoing discussions pending her clinical course. * Zina Montilla RD - 10/30/2023 12:57 PM CDTAssociated Order(s): IP CONSULT TO NUTRITION SERVICES NUTRITION ASSESSMENT Nutrition Status: Patient does not meet ASPEN criteria for malnutrition at this time. REASON FOR ASSESSMENT: Consult/Referral - Stroke Protocol Encounter Date: 10/30/23 1:04 PM Admission Date: 10/29/2023 LOS: 0 days HPI: Patient is a 73 y.o. female with a PMHx significant for HTN, ESRD on HD, HLD, mild dementia AOx 4 at baseline. Presents to the ED with a chief complaint of acute confusion at HD. Daughter present at bedside, reports that patient does have moderate dementia, alert oriented x2 atbaseline. Patient lives with the daughter 10/30/23 - Consult for stroke protocol. Patient seen by RD services on previous admission 10/05-10/22/23, 12/06-12/18/22 at [facility]. Objective Past Medical History: Diagnosis Date Anemia Arthritis [...] PLACEMENT > 5 YEARS N/A 10/15/2023 Social History Tobacco Use Smoking status: Never Smokeless tobacco: Never Substance and Sexual Activity Drug use: Never Sexual activity: Not Currently Partners: Male Alcohol Use: Not At Risk (07/24/2023) AUDIT-C Frequency of Alcohol Consumption: Never Average Number of Drinks: Patient does not drink Frequency of Binge Drinking: Never MEDICATION/LAB REVIEW: Scheduled Meds: aspirin, 81 mg, oral, Daily atorvastatin, 20 mg, oral, Nightly clopidogreL, 75 mg, oral, Daily famotidine, 10 mg, oral, Daily fluticasone propionate, 2 spray, each nostril, Daily heparin, 1,500 Units, dialysis circuit, Once heparin, 5,000 Units, subcutaneous, Q8H SOL insulin glargine, 0.25 Units/kg, subcutaneous, Nightly insulin lispro, 0-10 Units, subcutaneous, TID with meals insulin lispro, 0-5 Units, subcutaneous, Nightly insulin lispro, 0.083 Units/kg, subcutaneous, TID with meals metoprolol tartrate, 6.25 mg, oral, BID Continuous Infusions: PRN Meds: acetaminophen OR acetaminophen OR acetaminophen benzonatate dextrose OR dextrose glucagon Dialysis Access Care AND heparin heparin polyethylene glycol ramelteon Recent Labs Lab Units 10/30/23 0446 SODIUM mmol/L 141 POTASSIUM PLASMA mmol/L 4.3 CHLORIDE mmol/L 103 CO2 mmol/L 24 BUN SERUM mg/dL 32* CREATININE mg/dL 3.00* [id number] mL/min/1.73 m2 16* CALCIUM mg/dL 8.6 ALBUMIN g/dL 3.2* PHOSPHORUS PLASMA mg/dL 4.4 MAGNESIUM mg/dL 1.7 Recent Labs Lab Units 10/30/23 1256 10/30/23 1124 10/30/23 0939 10/30/23 0446 10/29/23 2343 10/29/23 1826 10/27/23 1828 GLUCOSE mg/dL -- -- -- 175 -- 129 192 POC GLUCOSE MONITOR mg/dL 213* 209* 143 -- 162 -- -- ALT Date Value Ref Range Status 10/30/2023 61 (H) 7 - 45 Units/L Final Comment: Testing performed by: [facility], [address] [place] [address]., [id number] AST Date Value Ref Range Status 10/30/2023 17 10 - 45 Units/L Final Comment: Testing performed by: [address] [id number] Alk phos Date Value Ref Range Status 10/30/2023 162 (H) 40 - 130 Units/L Final Comment: Testing performed by: [address] [id number] Lab Results Component Value Date HGBA1C 8.2 (H) 10/08/2023 HDL 47 10/30/2023 LDLCALC 50 10/30/2023 CHOL 118 10/30/2023 TRIG 104 10/30/2023 NURSING ASSESSMENT: Timoteo Scale Score: 20 Skin Integrity: Abrasion Vital Signs BP: 147/58 Temp: 36.9 ??C (98.4 ??F) Pulse: 73 Resp: 16 SpO2: 97 % Intake/Output Summary (Last 24 hours) at 10/30/2023 1304 Last data filed at 10/29/2023 1849 Gross per 24 hour Intake -- Output 500 ml Net -500 ml Adult Malnutrition Scoring Tool (MST) What diet do you follow at home?: Regular Have You Recently Lost Weight Without Trying?: No Have you been eating poorly because of a decreased appetite?: No Malnutrition Screening Tool (MST) Score: 0 Hunger Screen - Admission Within the past 12 months the food we bought just didn't last and we didn't have money to get more.: Never true Within the past 12 months we worried whether our food would run out before we got money to buy more.: Never true Within the past 12 months, you worried that your food would run out before you got the money to buymore.: Never true Within the past 12 months, the food you bought just didn't last and you didn't have money to get more.: Never true Anthropometrics Weight: 61.8 kg (136 lb 3.9 oz) Admission Weight : 65 kg Weight Change: -3.19 kg (-7.05 lbs) IBW/kg (Calculated) : 49.9 kg Height: 157.5 cm (5' 2 ) Weight in (lb) to have BMI = 25: 136.4 BMI (Calculated): 24.9 Wt Readings from Last 10 Encounters: 10/30/23 61.8 kg (136 lb 3.9 oz) 10/27/23 61.2 kg (135 lb) 10/15/23 61.6 kg (135 lb 12.8 oz) 09/03/23 58.5 kg (129 lb) 08/03/23 58.2 kg (128 lb 6.4 oz) 07/28/23 56.7 kg (125 lb) 07/24/23 56 kg (123 lb 6.4 oz) 06/30/23 60.8 kg (134 lb) 04/07/23 59.2 kg (130 lb 9.6 oz) 03/24/23 59 kg (130 lb) ESTIMATED NEEDS: Weight Used for Equation Calculations (RD Determined): 61.8 kg (136 lb 3.9 oz) Total Kcal/kg Estimated Needs : 1854 Kcal/k (per [facility] Recommendations). Type of Weight Used for Estimated Kcals: Current Total Protein Estimated Needs (gm): 74.16 Protein Needs Based on g/k.2 (per [facility] recommendations) Type of Weight Used for Estimated Protein : Current Total Fluid Estimated Needs: 1854 Fluid Needs Based on : 1 ml/kcal Type of Weight Used for Estimated Fluid Needs: Current Total Fluid Estimated Needs Comments:: UOP +750-1000, adult fluid minimum 1500 mL (per [facility] Recommendations) Dietary Orders (From admission, onward) Start Ordered 10/30/23 2100 Bedtime snack At bedtime Comments: If bedtime BG is less than 100mg/dl, give patient a 15 gram carbohydrate snack. 10/29/23 2246 10/29/23 224 Adult Diet Restricted; Cardiac (No caffeine, Low Na, Low Chol); 5 CHO/Meal; Yes, patient is receiving insulin; Renal Dialysis; 80 Grams (Pro); 1 Gram (Phos); 2 Grams (K+); 2 Grams (Na) Diet effective now Question Answer Comment (MHB/MHE) Diet type Restricted Fat / Sodium Restriction: Cardiac (No caffeine, Low Na, Low Chol) Diabetic: 5 CHO/Meal Patient receiving insulin: Yes, patient is receiving insulin Renal: Renal Dialysis Protein: 80 Grams (Pro) Phosphorus: 1 Gram (Phos) Potassium: 2 Grams (K+) Sodium: 2 Grams (Na) 10/29/23 2244 Allergies: Reviewed. IMPRESSION: Patient is on a cardiac (no caffeine, low Na, low Chol), 5 CHO/meal, Renal dialysis (80 gram Pro, 1gram Phos, 2 gram K+, 2 gram Na) diet with no meals documented as of yet. Patient stated she is notexperiencing any GI symptoms. Her appetite is good and she was eating good FILM WASHER - 3 meals a day. Shereports following a low sodium diet at home. Her UBW is around 140 lb and she has not noticed any weight loss. Weight history in EMR shows weight loss of 11.4% since 11/10/22 which is not significant for time period. Mainly weight gain noted. She denied any chewing/swallowing problems. New weight via bedscale 10/29 136 lb 3.9 oz. Per RN flowsheets 10/29, experiencing +1 RLE, LLE edema. UOP 500. LBM y day per patient. She is from home with daughter and will likely return after discharge. RD will continue to monitor. ASPEN MALNUTRITION ASSESSMENT: Date of completion: 10/30/23 ASPEN/AND Malnutrition Screening: Patient does not meet malnutrition criteria NUTRITION FOCUSED PHYSICAL EXAM: Completed. Subcutaneous Fat Loss Orbital Region - Surrounding the Eye: Slightly bulged fat pads Cheek Region - Buccal Fat: Full, round filled-out cheeks Upper Arm Region - Triceps/Biceps: Ample fat tissue obvious between folds of skin Muscle Loss Scientologist Region - Temporalis Muscle: Slight depression Clavicle Bone Region - Pectoralis Major, Deltoid, Trapezius Muscles: Not visible in male, visible but not prominent in female Clavicle and Acromion Bone Region - Deltoid Muscle: Rounded, curves at arm/shoulder/neck Dorsal Hand - Interosseous Muscle: Muscle bulges, could be flat in some well nourished people Anterior Thigh and Patellar Region - Quadricep Muscle: Well-rounded, well-developed Posterior Calf Region - Gastrocnemius Muscle: Well-developed bulb of muscle NUTRITION DIAGNOSIS: Nutrition Diagnosis 1: Increased nutrient needs (protein) Related to: ESRD Evidenced by: Patient interview, Dialysis treatments INTERVENTION(S): Summary: Assess for nutrition changes, Encouragement, Initial assessment 10/30/23 - RD encouraged patient to eat the best she can. GOAL(S): Adequate nutrition to meet estimated needs by next assessment, Oral intake to meet 75% estimated nutritional needs by next assessment MONITORING/EVALUATION: Discharge plans, I/O, Labs, Plan of care, PO intake Diet Instructions Continue to follow a renal diet that is low in sodium, potassium, and phosphorus. Avoid/limit foodssuch as fast food items, fried/breaded foods, canned goods, deli meats, gravies/sauces, bananas, tomatoes, oranges, milk, dark annie and chocolate. Lane juice, citrus juices, and tomato juice are also high in potassium. Do not use salt substitutes, as they may contain potassium. Drink Nepro 1-2 times daily as able to increase calories and protein intake. If interested in outpatient nutrition counseling, ask your doctor for referral then call [phone] to schedule an appointment. Call [phone] to speak with a dietitian about any diet related concerns. Additional resources available onl ine from the [employer] at www.kidney.org/nutrition * Becky Gold, PLASTIC MIXER - 10/30/2023 11:55 AM CDT [facility] Inpatient Speech-Language Pathology Clinical Bedside Swallow Evaluation PRIOR MEDICAL HISTORY/SUBJECTIVE Patient Name: Sixto Chakraborty Admit Date: 10/29/2023 Date of : 1950 Room: [id number] Age/Sex: 73 y.o. female Date/Time of Service: 10/30/2023 / 1155 Referring Provider: Aylin Kauffman MD Primary Hospital Diagnosis: Altered mental status, unspecified altered mental status type [R41.82] AMS (altered mental status) [R41.82] HPI: Sixto Chakraborty is a 73 y.o. female with a PMHx significant for HTN, ESRD on HD, HLD, mild dementia AOx 3 at baseline. Presents to the ED with a chief complaint of acute confusion at HD . Patientwas referred to speech pathology services for Initial Bedside Swallow Evaluation due to Rule out aspiration (stroke workup). Patient is agreeable to speech pathology evaluation. Medical History Past Medical History: Diagnosis Date Anemia Arthritis CHF (congestive heart failure) (CMS/HCC) (HCC) Dementia (HCC) Depression Diabetic neuropathy (HCC) GERD (gastroesophageal reflux disease) HL (hearing loss) Hyperlipidemia Hypertension Movement disorder Osteomyelitis (HCC) Renal disorder Schizophrenia (HCC) Type 2 diabetes mellitus (HCC) Lab/Imaging: Recent Labs Lab Units 10/30/23 0446 WBC K/cumm 12.1* HEMOGLOBIN g/dL 9.1* HEMATOCRIT % 27.7* PLATELETS K/cumm 268 MRI Brain WO Contrast Result Date: 10/30/2023 IMPRESSION: Small acute to subacute infarct in the posterior right temporal lobe. Moderate burden of periventricular and pontine T2/FLAIR hyperintense white matter disease, nonspecific, though likelysecondary to chronic microvascular ischemia. Upper cervical degenerative disc disease with at leastmoderate spinal canal stenosis at C3-C4, poorly assessed on the current protocol. This could be further assessed with cervical spine MRI. Bilateral mastoid effusions CT Head WO Contrast Result Date: 10/29/2023 IMPRESSION: No acute intracranial findings. Moderate chronic microvascular angiopathy, similar to prior exam. Large right mastoid effusion and small to moderate left mastoid effusion, similar to prior exam. XR Chest 1 Vw Portable Result Date: 10/29/2023 IMPRESSION: No acute cardiopulmonary abnormality. Allergies Reviewed: Yes Patient has no known allergies. Precautions: falls Pain Assessment: 0 - No pain Patient Goal: pt states no specific swallowing goals Fan Mail Clerk Services Utilized: NO Assessment: Diet Solids Recommendation: Regular Diet Liquids Recommendations: Thin/regular Recommended Form of Medications: Whole, With liquid Compensatory Strategies/Modifications: Postural Recommendations: Upright 90 degrees Assistance: Dysphagia Diagnosis: No suspected dysphagia, oral-pharyngeal function appears WFL Overall Clinical Impression/Additional Information: Patient demonstrates: -oral motor exam revealed orofacial symmetry, strength, range of motion, and coordination WFL -Dentures bottom, Dentures top -self fed, appropriate oral acceptance, adequate lip seal, adequate control, adequate mastication, and good oral clearance -swallow timing appears at least slightly delayed -no signs or symptoms of aspiration -respiratory status does not appear to impair swallow function/safety -cognitive status does not appear to impair swallow function/safety Patient's speech-language skills were screened during the course of swallow eval; patient exhibitedfunctional and appropriate receptive and expressive speech-language; no areas of concern identified. Report of underlying dementia in chart; no family present to clarify baseline sp-lang function. Ifconcerns are present upon return home, please follow up with OP ST. Diet Orders Prior to Assessment: Regular/Thin Home Diet/Baseline Feeding Status: Regular and Thin Respiratory Status: Current O2 support: Room air ; No significant impairment; respiratory support is adequate for speech and swallowing Respiratory Status: Room air Behavior/Cognition: Alert, Cooperative, Pleasant mood Vision: Functional for self-feeding Patient Positioning: Upright in bed Baseline Vocal Quality: Within Functional Limits Volitional Cough: Strong Volitional Swallow: Delayed Secretion Management: Yes Oral Motor Assessment: Oral [...] Limits Facial Sensation: Within Functional Limits Dentition: Dentures bottom, Dentures top Consistencies Administered: thin, puree, and solid Harris Assessment of Swallowing Ability (MASA) Alertness: Alert Cooperation: Cooperative Auditory Comprehension: No abnormality detected Respiration: Chest clear Respiratory Rate (for swallow): Able to control breath rate for swallow Aphasia: No abnormality detected (pt communicates appropriately throughout swallow eval) Apraxia: No abnormality detected Dysarthria: No abnormality detected Saliva: No abnormality detected Lip Seal: No abnormality detected Tongue Movement: Full range of motion Tongue Strength: No abnormality detected Tongue Coordination: No abnormality detected Gag: Hyperreflexive/no abnormality detected Palate: No abnormality detected Cough Reflex: No deficit noted Voluntary Cough: No abnormality detected Voice: No abnormality detected Trach: No trach Oral Preparation: No deficits noted Bolus Clearance: Fully cleared Oral Transit: No deficits noted Pharyngeal Phase: Mildly restricted laryngeal elevation, Slow initiation Pharyngeal Response: No deficits noted MASA Score: 198 Dysphagia: No dysphagia detected (178-200) Aspiration Risk: No aspiration risk (170-200) Education Education: Patient has been educated on the swallow study results, diet recommendations, and plan of care. Education completed via verbal explanation. Patient verbalized understanding. Plan Recommended Follow-Up: (D/C skilled ST after evaluation on this date) PLASTIC MIXER Frequency: One-time visit (Discharge from this service) Next Planned Visit: Discharge Recommendations: Defer at this time Barriers to Discharge: defer to medical team Discharge Summary Statement If this is the last speech therapy visit, this serves as the discharge summary. Goals established: 10/30/23 PLASTIC MIXER Care Plan Problems/Goals None Becky Gold M.S. [facility]-PLASTIC MIXER documented in this encounter Nursing Notes * Rosa Gonzalez RN - 11/03/2023 6:49 PM CDT AVS reviewed with patient and daughter. Report called to Starr Santos. IV removed. Patient belongings returned. Patient discharged with daughter. * Adriel Fang - 11/03/2023 12:11 PM CDT 11/03/23 1205 Post-Hemodialysis Assessment Rinseback Volume (mL) 250 mL Dialyzer Clearance Clear Duration of Treatment (min) 210 minutes Patient Response to Treatment Patient completed full treatment , unable to met ordered UF goal due to intradialytic hypotension. UF goal adjusted as tolerated. Net UF 1000 mL Post-Hemodialysis Comments Stable post HD. * Adriel Fang - 10/31/2023 11:53 AM CDT 10/31/23 1110 Post-Hemodialysis Assessment Rinseback Volume (mL) 250 mL Dialyzer Clearance Clear Duration of Treatment (min) 165 minutes Patient Response to Treatment Tolerated treatment and met ordered UF goal. Net UF 1000 mL Post-Hemodialysis Comments Stable post HD. documented in this encounter ED Notes * Robert Betts MD - 10/29/2023 6:53 PM CDT HPI Chief Complaint Patient presents with Tremors Pt is a poor historian due to acuity of condition. Hx primarily obtained via family. HPI Sixto Chakraborty is a 73 y.o. female w/ PMHx including type II DM, HTN, CKD, HLD, Alzheimer's dementia, DVT, schizophrenia, and CHF presenting to the ED w/ c/o AMS. Pt had dialysis today and was dropped off via family at 1300. At 1500 family was called for the pt's BP dropping into the 90's systolic.Pt was also said to be freaking out during this time and changing in color . Per family, the dialysis center was going to call 911 but the pt's vitals returned to baseline. Per family, pt is normally able to hold conversation at baseline and is currently unable to in the ED. Per family, pt is normally able to ambulate at baseline, but the pt is minimally moving extremities in the ED. Per family, pt is normally able to follow direction, which the pt is not doing in the ED. Per family, pt was last seen normal before dialysis at approximately 1300. Per family, pt was able to talk, get in the truck, and get around on her own before dialysis at 1300. Ore Crusher: Dr. Ryan Patient History: Past Medical History: Diagnosis Date [...] Outpatient Medications: acetaminophen (TYLENOL) 325 mg tablet atorvastatin (LIPITOR) 20 mg tablet benztropine (COGENTIN) 1 mg tablet blood-glucose sensor (FreeStyle Madhav 3 Sensor) device calcium acetate,phosphat bind, (PHOSLO) 667 mg capsule famotidine (PEPCID) 10 mg tablet ferrous sulfate 325 mg (65 mg of elemental iron) tablet flash glucose scanning reader [facility] flash glucose sensor (FreeStyle Madhav 2 Sensor) kit fluticasone propionate (FLONASE) 50 mcg/actuation nasal spray insulin glargine 100 unit/mL (3 mL) pen for injection insulin lispro (HumaLOG, ADMELOG) 100 unit/mL vial for injection lidocaine (ASPERCREME) 4 % adhesive patch,medicated metoprolol tartrate (LOPRESSOR) 25 mg immediate release tablet OLANZapine (ZyPREXA) 2.5 mg tablet pen needle, diabetic 32 gauge x 5/32 needle polyethylene glycol (MIRALAX) 17 gram/dose bulk powder ramelteon (ROZEREM) 8 mg tablet risperiDONE (RisperDAL) 1 mg tablet Review of Systems Review of Systems Unable to perform ROS: Acuity of condition All systems reviewed and are neg or non contributory for this patients presentation today other than as stated in the HPI . Physical Exam ED Triage Vitals Temp Pulse Resp BP SpO2 10/29/23 1853 10/29/23 17310/29/23 17310/29/23 17310/29/23 173 36.8 ??C (98.2 ??F) 69 18 170/80 100 % Temp src Heart Rate Source Patient Position BP Location FiO2 (%) 10/29/23 1853 -- -- -- -- Oral Height Height Method Weight Weight Method 10/29/23 1734 10/29/23 17310/29/23 17310/29/23 173 1.575 m (5' 2 ) Stated 65 kg (143 lb 4.8 oz) EMS stretcher scale Physical Exam Vitals [...] focal deficit present. Mental Status: She is confused. Comments: Pt not following commands well. Resting and intentional tremors of all extremities. Pt appears generalized weak. Strength does appear to be equal in all extremities. Psychiatric: Behavior: Behavior normal. Procedures MDM Labs [...] CBC WITH AUTO DIFFERENTIAL - Abnormal WBC 12.0 (*) Hgb 9.1 (*) Hct 26.7 (*) Plt 225 MPV 9.9 RBC 2.95 (*) MCV 90.5 MCH 30.8 MCHC 34.1 RDW CV 13.8 RDW SD 45.3 NRBC abs 0.00 COMPREHENSIVE METABOLIC PANEL - Abnormal Sodium 135 Potassium, pl 3.9 Chloride 97 CO2 25 Anion gap 13 BUN 21 Creatinine 2.10 (*) Glucose 129 Calcium 8.4 (*) Bilirubin, total 0.2 Protein, pl 7.1 Albumin 3.3 (*) Alk phos 160 (*) ALT 75 (*) AST 28 DIFFERENTIAL AUTO - Abnormal Neutrophil abs 9.7 (*) Imm gran abs 0.1 Lymphocyte abs 1.4 Monocyte abs 0.7 Eosinophil abs 0.0 Basophil abs 0.0 Neutrophil pct 80.9 Imm gran pct 0.4 Lymphocyte pct 12.0 Monocyte pct 6.2 Eosinophil pct 0.3 Basophil pct 0.2 TROPONIN T HIGH-SENSITIVITY 2-HOUR - Abnormal Trop T hs 39 (*) Trop T hs delta -2 Trop T hs interp Insignificant EGFR - Abnormal eGFR 24 (*) TROPONIN T HIGH-SENSITIVITY SERIES (BASELINE, 2HR, 4HR, 6HR) - Abnormal Trop T hs 41 (*) URINALYSIS, MICROSCOPIC ONLY WBC, ur 0-5 RBC, ur 0-2 Culture Reflex Comment Value: Reflex conditions for urine culture (WBC >10) not met. TROPONIN T HIGH-SENSITIVITY SERIES (BASELINE, 2HR, 4HR, 6HR) TROPONIN T HIGH-SENSITIVITY 4-HR TROPONIN T HIGH-SENSITIVITY 6-HOUR CT Head WO Contrast Final Result XR Chest 1 Vw Portable Final Result BP 170/80 Pulse 97 Temp 36.8 ??C (98.2 ??F) (Oral) Resp 19 Ht 157.5 cm (5' 2 ) Wt 65 kg (143 lb 4.8 oz) SpO2 100% BMI 26.21 kg/m?? MDM Amount and/or Complexity of Data Reviewed Clinical lab tests: reviewed Tests in the radiology section of CPT??: reviewed ED Course as of 10/29/232135 Time: 10/29 1851 Value: XR Chest 1 Vw Portable Comment: IMPRESSION: No acute cardiopulmonary abnormality. By: Robert Betts MD Time: 10/28 1942 Value: XR Chest 1 Vw Portable Comment: IMPRESSION: No acute cardiopulmonary abnormality. By: Robert Betts MD Time: 10/29 1943 Comment: Patient is a very pleasant 72-year-old female with extensive past medical history who presents to the ED with acute mental status change. Differential diagnosis includes CVA, TIA, worsening of her dementia, metabolic encephalopathy, infection, medication side effects At this time there is no evidence of infection, she did complete a full treatment, no evidence of electrolyte abnormalities. Will get CT of the head to rule out intracranial hemorrhage, bleed, patient might need to be admitted for observation and further workup by Neurology. Dispo pending CT of thehead. By: Robert Betts MD Time: 10/29 2043 Value: CT Head WO Contrast Comment: IMPRESSION: No acute cardiopulmonary abnormality. By: Robert Betts MD Time: 10/28 2133 Comment: Etiology behind patient's symptoms still unclear. Will be admitted for further workup and management, discussed with hospitalist who accepts the patient for observation By: Robert Betts MD This examination was transcribed using the [employer] voice recognition system without human inside sales person. In an effort to expedite patient care, this report has not been adjusted for typographical, grammatical, and syntax by a trained coroner/medical examiner. Gilberto Aguirre scribed for Robert Betts MD in the doctor's presence. I electronically signed this note at 9:36 PM on 10/29/2023. I, Robert Betts MD, have personally performed the services described in the documentation , reviewed the documentation, as recorded by the scribe in my presence, and it accurately and completely records my words and actions. Clinical Impression: Altered mental status, unspecified altered mental status type Carla, Gilberto 10/29/23 185 Carla, Gilberto 10/29/231930 Carla, Gilberto 10/29/231930 Carla, Gilberto 10/29/23 193 [facility] 10/[facility]1941 Robert Betts MD 10/29/236 * Lucille Perkins RN - 10/29/2023 6:51 PM CDT Pt's daughter also mentions pt was hypotensive during dialysis. She is requesting head CT, chest CT, urinalysis and is concerned for pt being septic. Lucille Perkins RN 10/29/23 1852 * Lucille Perkins RN - 10/29/2023 5:34 PM CDT Pt brought in by EMS from dialysis for tremors. Pt denies pain and has no complaints. EMS reports pt did finish her treatment. documented in this encounter Miscellaneous Notes * Plan of Care - Olivia Warren RN - 11/03/2023 3:00 PM CDT CARE COORDINATION DISCHARGE PLANNING ANTICIPATED D/C DATE:11/03/23 CM will continue to follow for progression of care, if further needs for discharge or barriers to care arise, please reach out to care management team. DISCHARGE PLANNING HANDED OFF TO SOCIAL WORK FOR SNF PLACEMENT D/C planning to be complete by social service team. Social work consulted and case discussed with Sera CAT. CM team will be following along for progression of care and assist with clinical review if needed. For discharge planning needs please reach out to the social work team or see SW notes. Olivia Warren RN 11/03/2023 4:45 PM * Plan of Care - Rosa Gonzalez RN - 11/03/2023 12:45 PM CDT Problem: Lack of Knowledge Goal: Knowledge of risk factors and measures for prevention of condition will improve Outcome: Progressing Problem: Physical Regulation Goal: Spread of further infection will be prevented Outcome: Progressing Goal: Complications related to the disease process, condition, or treatment will be avoided or minimized Outcome: Progressing Problem: Lack of Knowledge Goal: [...] to Diabetes will improve Outcome: Progressing Problem: Discharge Planning Goal: Understanding discharge needs will improve Outcome: Progressing Problem: Fall Risk Goal: Ability to state ways to decrease the risk of falls will improve Outcome: Progressing Goal: Will remain free from falls Outcome: Progressing Goal: Will remain free from injury from falls Outcome: Progressing Goals: Clinical Goals for the Shift: comfort, safety * Plan of Care - Luan Lane RN - 11/03/2023 5:19 AM CDT Goals: Clinical Goals for the Shift: safety, rest, comfort, VSS Problem: Lack of Knowledge Goal: Knowledge of risk factors and measures for prevention of condition will improve Outcome: Ongoing Problem: Physical Regulation Goal: Spread of further infection will be prevented Outcome: Ongoing Goal: Complications related to the disease process, condition, or treatment will be avoided or minimized Outcome: Ongoing Problem: Lack of Knowledge Goal: [...] to Diabetes will improve Outcome: Ongoing Problem: Discharge Planning Goal: Understanding discharge needs will improve Outcome: Ongoing Problem: Fall Risk Goal: Ability to state ways to decrease the risk of falls will improve Outcome: Ongoing Goal: Will remain free from falls Outcome: Ongoing Goal: Will remain free from injury from falls Outcome: Ongoing * RODGER Castaneda Sera K., WELDING LEAD BURNER - 11/02/2023 3:55 PM CDT Images from the original note were not included. Patient Information: Meds and Admin Active Only All Meds/Most Recent Administrations benzonatate (TESSALON) capsule 100 mg [[id number]] Ordering Provider: Luciano Jenkins MD Status: Verified Ordered On: 10/29/232243 Start: 10/29/232243 Ordered Dose (Remaining/Total): 100 mg (--/--) Route: oral Frequency: 3 times daily PRN Ordered Rate/Order Duration: -- / -- Admin Instructions: Do not crush, chew, cut, dissolve, open or otherwise manipulate tablet/capsule. (No admins scheduled or recorded for this medication) heparin 5,000 unit/mL injection 5,000 Units [[id number]] Ordering Provider: Luciano Jenkins MD Status: Dispensed Ordered On: 10/29/232243 Start: 10/29/232299 Ordered Dose (Remaining/Total): 5,000 Units (--/--) Route: subcutaneous Frequency: Every 8 hours scheduled Ordered Rate/Order Duration: -- / -- Timestamps Action Dose Route / Site Other Information 11/02/23 1323 Given 5,000 Units subcutaneous Left Lower Abdomen Performed by: Kristyn Blake RN Scanned Package: [id number] aspirin enteric coated tablet 81 mg [[id number]] Ordering Provider: Luciano Jenkins MD Status: Dispensed Ordered On: 10/29/232243 Start: 10/30/23 0900 Ordered Dose (Remaining/Total): 81 mg (--/--) Route: oral Frequency: Daily Ordered Rate/Order Duration: -- / -- Admin Instructions: Do not crush, chew, cut, dissolve, open or otherwise manipulate tablet/capsule. Timestamps Action Dose Route Other Information 11/02/23 0947 Given 81 mg oral Performed by: Kristyn Blake RN Scanned Package: [id number] acetaminophen (TYLENOL) tablet 650 mg [[id number]] Ordering Provider: Luciano Jenkins MD Status: Verified Ordered On: 10/29/232243 Start: 10/29/232243 Ordered Dose (Remaining/Total): 650 mg (--/--) Route: oral Frequency: Every 4 hours PRN Ordered Rate/Order Duration: -- / -- Admin Instructions: Administer if patient can swallow tablets. (No admins scheduled or recorded for this medication) acetaminophen (TYLENOL) 32 mg/mL oral liquid 650 mg [[id number]] Ordering Provider: Luciano Jenkins MD Status: Verified Ordered On: 10/29/232243 Start: 10/29/232243 Ordered Dose (Remaining/Total): 650 mg (--/--) Route: feeding tube Frequency: Every 4 hours PRN Ordered Rate/Order Duration: -- / -- Admin Instructions: Administer if patient receiving meds per tube. (No admins scheduled or recorded for this medication) acetaminophen (TYLENOL) suppository 650 mg [[id number]] Ordering Provider: Luciano Jenkins MD Status: Verified Ordered On: 10/29/232243 Start: 10/29/232243 Ordered Dose (Remaining/Total): 650 mg (--/--) Route: rectal Frequency: Every 4 hours PRN Ordered Rate/Order Duration: -- / -- Admin Instructions: Administer if patient cannot tolerate enteral route. (No admins scheduled or recorded for this medication) polyethylene glycol (MIRALAX) packet 17 g [[id number]] Ordering Provider: Luciano Jenkins MD Status: Verified Ordered On: 10/29/232243 Start: 10/29/232243 Ordered Dose (Remaining/Total): 17 g (--/--) Route: oral Frequency: Daily PRN Ordered Rate/Order Duration: -- / -- (No admins scheduled or recorded for this medication) dextrose (GLUTOSE) 40 % gel 15 g [[id number]] Ordering Provider: Luciano Jenkins MD Status: Verified Ordered On: 10/29/232245 Start: 10/29/232245 Ordered Dose (Remaining/Total): 15 g (--/--) Route: oral Frequency: Every 15 min PRN Ordered Rate/Order Duration: -- / -- Admin Instructions: If patient is alert and able to eat/drink, give 15 gm glucose or one juice (4 fluid ounces) NOT ORANGE JUICE. After treatment for hypoglycemia, recheck BG followed by treatment every 15 minutes until the BG is greater than 100 mg/dL. Then check BG 1 hour post-treatment. If BG isless than 100 mg/dL, repeat Q15 minute BG checks and treatment. Call MD for each episode of hypoglycemia. MATERIALS MANAGEMENT MANAGER STATES GLUTOSE-15 CONTAINS GLUCOSE 40% W/W (50% W/V) (No admins scheduled or recorded for this medication) dextrose (D10W) 10% bolus 250 mL [[id number]] Ordering Provider: Luciano Jenkins MD Status: Verified Ordered On: 10/29/232245 Start: 10/29/232245 Ordered Dose (Remaining/Total): 250 mL (--/--) Route: intravenous Frequency: Every 15 min PRN Ordered Rate/Order Duration: 1,000 mL/hr / 15 Minutes Admin Instructions: After treatment for hypoglycemia, recheck BG followed by treatment every 15 minutes until the BG is greater than 100 mg/dL. Then check BG 1 hour post treatment. If BG is less oods960 mg/dL, repeat Q15 minute BG checks and treatment. Call MD for each episode of hypoglycemia. (No admins scheduled or recorded for this medication) glucagon injection 1 mg [[id number]] Ordering Provider: Luciano Jenkins MD Status: Verified Ordered On: 10/29/232245 Start: 10/29/232245 Ordered Dose (Remaining/Total): 1 mg (--/--) Route: intramuscular Frequency: Every 30 min PRN Ordered Rate/Order Duration: -- / -- Admin Instructions: After Glucagon is administered, position patient on side if possible to avoid aspiration. Obtain IV access. Follow glucagon treatment with glucose treatment or IV dextrose. After treatment for hypoglycemia, recheck BG followed by treatment every 15 minutes until the BG isgreater than 100 mg/dL. Then check BG 1 hour post treatment. If BG is less than 100 mg/dL, repeat Q15 minute BG checks and treatment. Call MD for each episode of hypoglycemia. Reconstitute 1 mg vial with 1 mL SWFI. Use immediately following reconstitution. (No admins scheduled or recorded for this medication) insulin glargine (LANTUS, SEMGLEE) 100 unit/mL injection 16 Units [[id number]] Ordering Provider: Aylin Kauffman MD Status: Dispensed Ordered On: 10/29/232245 Start: 10/29/232246 Ordered Dose (Remaining/Total): 0.25 Units/kg (--/--) Route: subcutaneous Frequency: Nightly Ordered Rate/Order Duration: -- / -- Admin Instructions: Do not hold if NPO. Do not mix with other insulins Timestamps Action Dose Route / Site Other Information 11/01/232109 Given 16 Units subcutaneous Left Lower Abdomen Performed by: Masha Chilel RN Scanned Package: [id number] insulin lispro (HumaLOG, ADMELOG) 100 unit/mL injection 5 Units [[id number]] Ordering Provider: Luciano Jenkins MD Status: Dispensed Ordered On: 10/29/232245 Start: 10/30/23 08 Ordered Dose (Remaining/Total): 0.083 Units/kg (--/--) Route: subcutaneous Frequency: 3 times daily with meals Ordered Rate/Order Duration: -- / -- Admin Instructions: If BG greater than or equal to [...] eat, or if BG less than 70 mg/dL. Timestamps Action Dose Route / Site Other Information 11/02/23 1322 Given 5 Units subcutaneous Left Lower Abdomen Performed by: Kristyn Blake RN Scanned Package: [id number] insulin lispro (HumaLOG, ADMELOG) 100 unit/mL injection 0-10 Units [[id number]] Ordering Provider: Luciano Jenkins MD Status: Dispensed Ordered On: 10/29/232245 Start: 10/30/23 0800 Ordered Dose (Remaining/Total): 0-10 Units (--/--) Route: subcutaneous Frequency: 3 times daily with meals Ordered Rate/Order Duration: -- / -- Admin Instructions: Blood glucose mg/dL: 149 or less: No insulin 150-199: add 2 unit 200-249: add 4 units 250-299: add 6 units 300-349: add 8 units and notify physician for adjustment of insulin orders. 350-399: add 10 units and notify physician for adjustment of insulin orders. Over 400: Notify physician for adjustment of insulin orders. Do NOT hold for NPO Status Timestamps Action Dose Route / Site Other Information 11/01/23 1334 Given 2 Units subcutaneous Left Lower Abdomen Performed by: Kristyn Blake RN Scanned Package: [id number] insulin lispro (HumaLOG, ADMELOG) 100 unit/mL injection 0-5 Units [[id number]] Ordering Provider: Luciano Jenkins MD Status: Dispensed Ordered On: 10/29/232245 Start: 10/29/232246 Ordered Dose (Remaining/Total): 0-5 Units (--/--) Route: subcutaneous Frequency: Nightly Ordered Rate/Order Duration: -- / -- Admin Instructions: Blood glucose mg/dL: 149 or less: No insulin 150-199: add 1 unit 200-249: add 2 units 250-299: add 3 units 300-349: add 4 units and notify physician for adjustment of insulin orders. 350-399: add 5 units and notify physician for adjustment of insulin orders. Over 400: Notify physician for adjustment of insulin orders. Do NOT hold for NPO Status Timestamps Action Dose Route / Site Other Information 11/01/23 2110 Given 1 Units subcutaneous Left Upper Abdomen Performed by: Masha Chilel RN Scanned Package: [id number] heparin 1,000 unit/mL injection 1,500 Units [[id number]] Ordering Provider: Jimbo Strauss MD Status: Verified (Past End Date/Time) Ordered On: 10/29/23 2337 Starts/Ends: 10/30/23 0000 - 10/31/23 0015 Ordered Dose (Remaining/Total): 1,500 Units (06/22) Route: dialysis circuit Frequency: Once Ordered Rate/Order Duration: -- / -- Admin Instructions: Administered at start of dialysis treatment. (No admins scheduled or recorded for this medication) albumin 25 % bottle 25 g [[id number]] Ordering Provider: Jimbo Strauss MD Status: Verified (Past End Date/Time) Ordered On: 10/29/232336 Starts/Ends: 10/29/232336 - 10/30/23937 Ordered Dose (Remaining/Total): 25 g (3/3) Route: intravenous Frequency: As needed Ordered Rate/Order Duration: -- / -- Admin Instructions: To be administered only in dialysis. Not to exceed 25 gm. (Second priority) Question Answer Comment BP threshold for treatment:: SBP -- Systolic Blood Pressure less than (mmHg): 85 -- (No admins scheduled or recorded for this medication) heparin 1,000 unit/mL injection 1.5-6.9 mL [[id number]] Ordering Provider: Markie Ryan MD Status: Verified Ordered On: 10/29/232339 Start: 10/29/232337 Ordered Dose (Remaining/Total): 1.5-6.9 mL (--/--) Route: intra-catheter Frequency: As needed Ordered Rate/Order Duration: -- / -- Admin Instructions: Indwell volume of catheter lumens post treatment. Give volume based upon electric solderer's recommendation (usual range 1.2 - 3 mL) in each lumen. Timestamps Action Dose Route Other Information 10/31/23 1109 Given 4 mL intra-catheter Performed by: Adriel Fang Comments: given at dialysis Scanned Package: [id number] heparin 1,000 unit/mL injection 500 Units [[id number]] Ordering Provider: Markie Ryan MD Status: Verified Ordered On: 10/29/232339 Start: 10/29/232338 Ordered Dose (Remaining/Total): 500 Units (--/--) Route: dialysis circuit Frequency: As needed Ordered Rate/Order Duration: -- / -- Admin Instructions: Until treatment completed. Hold heparin last hour of treatment. (No admins scheduled or recorded for this medication) famotidine (PEPCID) tablet 10 mg [[id number]] Ordering Provider: Aylin Kauffman MD Status: Dispensed Ordered On: 10/30/23 1052 Start: 10/30/23 113 Ordered Dose (Remaining/Total): 10 mg (--/--) Route: oral Frequency: Daily Ordered Rate/Order Duration: -- / -- Timestamps Action Dose Route Other Information 11/02/23 0947 Given 10 mg oral Performed by: Kristyn Blake RN Scanned Package: [id number] fluticasone propionate (FLONASE) 50 mcg/actuation nasal spray 2 spray [[id number]] Ordering Provider: Aylin Kauffman MD Status: Dispensed Ordered On: 10/30/231051 Start: 10/30/23 113 Ordered Dose (Remaining/Total): 2 spray (--/--) Route: each nostril Frequency: Daily Ordered Rate/Order Duration: -- / -- Timestamps Action Dose Route Other Information 11/02/23 0949 Given 2 spray each nostril Performed by: Kristyn Blake RN Scanned Package: 31367-060-98 metoprolol tartrate (LOPRESSOR) immediate release split tablet 6.25 mg [[id number]] Ordering Provider: Aylin Kauffman MD Status: Dispensed Ordered On: 10/30/231051 Start: 10/30/231129 Ordered Dose (Remaining/Total): 6.25 mg (--/--) Route: oral Frequency: 2 times daily Ordered Rate/Order Duration: -- / -- Timestamps Action Dose Route Other Information 11/02/23 0950 Given 6.25 mg oral Performed by: Kristyn Blake RN Scanned Package: 6594-7569-56 ramelteon (ROZEREM) tablet 8 mg [[id number]] Ordering Provider: Alyin Kauffman MD Status: Verified Ordered On: 10/30/231051 Start: 10/30/231051 Ordered Dose (Remaining/Total): 8 mg (--/--) Route: oral Frequency: Nightly PRN Ordered Rate/Order Duration: -- / -- (No admins scheduled or recorded for this medication) sodium chloride 0.9% bolus 200 mL [[id number]] Ordering Provider: Markie Ryan MD Status: Verified (Past End Date/Time) Ordered On: 10/31/231807 Starts/Ends: 10/31/231807 - 11/01/231806 Ordered Dose (Remaining/Total): 200 mL (--/--) Route: intravenous Frequency: As needed Ordered Rate/Order Duration: -- / -- Admin Instructions: To be administered in dialysis only. Not to exceed 500 mL. (First priority) Question Answer Comment BP threshold for treatment:: SBP -- Systolic Blood Pressure less than (mmHg): 110 -- (No admins scheduled or recorded for this medication) heparin 1,000 unit/mL injection 1.5-6.9 mL [[id number]] Ordering Provider: Markie Ryan MD Status: Verified (Past End Date/Time) Ordered On: 10/31/231807 Starts/Ends: 10/31/231844 - 11/01/231844 Ordered Dose (Remaining/Total): 1.5-6.9 mL (06/22) Route: intra-catheter Frequency: Once Ordered Rate/Order Duration: -- / -- Admin Instructions: Indwell volume of catheter lumens post treatment. Give volume based upon electric solderer's recommendation (usual range 1.2 - 3 mL) in each lumen. (No admins scheduled or recorded for this medication) heparin 1,000 unit/mL injection 500 Units [[id number]] Ordering Provider: Markie Ryan MD Status: Verified (Past End Date/Time) Ordered On: 10/31/231807 Starts/Ends: 10/31/231899 - 11/01/231858 Ordered Dose (Remaining/Total): 500 Units () Route: dialysis circuit Frequency: Every 1 hour Ordered Rate/Order Duration: -- / -- Admin Instructions: Until treatment completed. (No admins scheduled or recorded for this medication) atorvastatin (LIPITOR) tablet 40 mg [[id number]] Ordering Provider: Charlotte Bird MD Status: Dispensed Ordered On: 10/31/23916 Start: 10/31/232099 Ordered Dose (Remaining/Total): 40 mg (--/--) Route: oral Frequency: Nightly Ordered Rate/Order Duration: -- / -- Timestamps Action Dose Route Other Information 11/01/232109 Given 40 mg oral Performed by: Masha Chilel RN Scanned Package: 43265-153-61 risperiDONE (RisperDAL) tablet 1 mg [[id number]] Ordering Provider: Daisy Gomez DO Status: Dispensed Ordered On: 11/01/23454 Start: 11/01/232099 Ordered Dose (Remaining/Total): 1 mg (--/--) Route: oral Frequency: Nightly Ordered Rate/Order Duration: -- / -- Timestamps Action Dose Route Other Information 11/01/232109 Given 1 mg oral Performed by: Masha Chilel RN Scanned Package: 2303-7541-67 benztropine (COGENTIN) tablet 1 mg [[id number]] Ordering Provider: Daisy Gomez DO Status: Dispensed Ordered On: 11/01/23454 Start: 11/01/232099 Ordered Dose (Remaining/Total): 1 mg (--/--) Route: oral Frequency: Nightly Ordered Rate/Order Duration: -- / -- Timestamps Action Dose Route Other Information 11/01/232111 Given 1 mg oral Performed by: Masha Chilel RN Scanned Package: [id number] OLANZapine (ZyPREXA) tablet 2.5 mg [[id number]] Ordering Provider: Daisy Gomez DO Status: Verified Ordered On: 11/01/23456 Start: 11/01/23455 Ordered Dose (Remaining/Total): 2.5 mg (--/--) Route: oral Frequency: Every 8 hours PRN Ordered Rate/Order Duration: -- / -- (No admins scheduled or recorded for this medication) darbepoetin isaiah (ARANESP) 40 mcg/mL injection 40 mcg [[id number]] Ordering Provider: Tucker Pitts MD Status: Verified Ordered On: 11/02/23 1121 Start: 11/03/23 0900 Ordered Dose (Remaining/Total): 40 mcg (--/--) Route: intravenous Frequency: Weekly Ordered Rate/Order Duration: 60 mL/hr / 1 Minutes Admin Instructions: Refrigerate (No admins scheduled or recorded for this medication) , OT Eval and Treat Last 72 Hours OT Evaluation Row Name 11/02/23 0903 10/30/23 0837 Chart Reviewed Yes -JW Yes -JW Session Type Evaluation -JW Evaluation -JW OT Received On 11/02/23 -JW -- Safe Environment Arm band checked -JW -- Subjective Agreeable to Therapy -JW -- Subjective Comment I use the wkr sometimes -JW -- OT Missed Visit Reason -- Procedure/testing/appointment Pt. at MRI testing at 8:37. Checked back [id number] and pt. states she needs to rest. Will check back as time allows. -JW Additional Pertinent History Dx: AMS, started acting sofie at dialysis session PMH: DM, shizoaffective disorder, bipolar, anemia, Parkinsonism, Alzheimers dementia -JW -- Family/Caregiver Present No -JW -- Occupational Therapy-Patient Goal Pt. wants to return home with daughter -JW -- OT Functional Mobility SBA for bed mobility for VC's and hand placement, CGA for sit-stand and transfer to chair -JW -- OT Self Care Pt. able to don/doff 1 sock with min A -JW -- OT Cognition A/O x2 -JW -- OT Communication intact -JW -- Precautions Bed/Chair Alarm -JW -- Precaution Comments tele -JW -- Type of Home House -JW -- Home Layout One level -JW -- Home Access Level entry -JW -- Bathroom Shower/Tub Tub/shower unit -JW -- Bathroom Equipment Grab bars in shower/tub -JW -- Home Mobility Equipment-Available Wheeled walker -JW -- Additional Comments Pt. was indep for mobility and basic ADL's, Dtr does driving, meds, and much ofIADL's. 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 tolerates some EOB activity, but very lethargic during session -JW -- Cognition Comments impaired, dtr completes med mgnt -JW -- Overall Cognitive Status Impaired -JW -- Arousal/Alertness Lethargic -JW -- Attention Span Attends with cues to redirect -JW -- Memory Decreased short term memory;Decreased recall of recent events;Decreased recall of precautions -JW -- Orientation Oriented to person;Oriented to place -JW -- Safety Judgment Decreased awareness of need for safety -JW -- Proprioception No apparent deficits -JW -- Motor Planning Appears intact -JW -- Hand Preference Right -JW -- Coordination Functional -JW -- Gross Grasp Functional -JW -- RUE Reach WFL -JW -- LUE Reach WFL -JW -- RUE Grasp Gross grasp -JW -- LUE Grasp Gross grasp -JW -- Bed Mobility Comments 1 SBA for bed mobility -JW -- Trials/Comments 1 CGA for transfer with wwkr from bed to chair -JW -- RUE Assessment WFL - -- LUE Assessment WFL - -- RLE Assessment [facility] - -- LLE Assessment [facility] - -- OT Treatment/Exercise Comments Pt.pleasant and cooperative with treatment but is lethargic and giveinconsistent responses to questions -JW -- Safe Environment End of Therapy Session Patient left in chair;Chair alarm in place and activated;Call light within reach;Overbed table within reach -JW -- Prognosis Fair -JW -- Problem List Decreased cognition;Decreased endurance;Decreased balance;Decreased functional mobility;Decreased IADL independence;Decreased ADL independence -JW -- Plan Plan of care initiated - -- OT Recommendation Home with family;Home with caregiver;Home Health OT - -- Patient at high risk for Falls;Injury due to decreased ability to care for self;Injury due to reduced functional status;Injury due to impaired cognition;Injury due to balance deficits -JW -- OT Recommendation/Plan Comments Recomnend home health OT and 24 hour superivision due to cog deficits - -- OT Frequency during current admission 3-5x/wk -JW -- Treatment/Interventions during current admission ADL/IADL retraining;Balance Training;Bed mobility;Endurance training;Functional mobility training;Functional transfer training;Neuromuscular re-education;Strengthening;Therapeutic activity;Therapeutic exercise;Transfer training - -- OT Equipment Recommended Shower chair;Transfer tub bench - -- OT - Next Appointment 11/16/23 -JW -- OT Evaluation Complete Yes -JW -- User Boyer (r) = Recorded By, (t) = Taken By, (c) = Cosigned By Initials Name Effective Dates Jordy West, OT 12/10/22 - OT Treatment No documentation. 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 -MR -- Precautions Bed/Chair Alarm;Fall risk -MR -- Type of Home House -MR -- Home Layout One level -MR -- Home Access Level entry -MR -- Bathroom Shower/Tub Tub/shower unit -MR -- Bathroom Equipment Grab bars in shower/tub;Shower chair -MR -- Home Mobility Equipment-Available Wheeled walker;Quad cane-large base -MR -- Home Mobility Equipment-Currently Using Wheeled walker -MR -- Level of [place] Needs assistance with homemaking;Independent with ADLs;Independent functionaltransfers;Independent with ambulation -MR -- Lives With Daughter -MR -- Receives Help From Family -MR -- Driving No -MR -- Mode of Transportation Driven by others -MR -- ADL Assistance Independent -MR -- Vocational/Occupation Retired -MR -- Fall within the last 6 months No -MR -- Pain Assessment [place] FACES -MR -- [place] FACES Pain Rating 0 -MR -- Orientation Oriented to person;Oriented to place;Oriented to time -MR -- Following Commands Follows one step commands without difficulty -MR -- Compliance/Behavior Easy to engage -MR -- Bed Mobility From 1 Supine -MR -- Bed Mobility Type 1 To -MR -- Bed Mobility to 1 Edge of bed -MR -- Level of Assistance 1 Modified Independent -MR -- Transfer From 1 Sit -MR -- Transfer Type 1 To and from -MR -- Transfer to 1 Stand -MR -- Technique 1 Sit to stand;Stand to sit -MR -- Transfer Device 1 Wheeled walker -MR -- Transfer Level of Assistance 1 Minimum Assist -MR -- Distance (ft) 1 15 -MR -- Surface 1 Level tile -MR -- Device 1 Wheeled walker -MR -- Assistance 1 Contact Guard Assist -MR -- Gait: Requires verbal cues to 1 Improve upright posture;Increase step length -MR -- Gait Deviations 1 Brigid - decreased;Posture - flexed;Step length - decreased - MR -- Safe Environment End of Therapy Session Patient left in recliner;Chair alarm in place and activated;RN notified;Call light within reach;Overbed table within reach;Bed in lowest position with wheels locked -MR -- Prognosis Good -MR -- Problem List Gait deviations;Decreased strength;Decreased endurance;Impaired balance;Decreased mobility -MR -- Barriers to Discharge None -MR -- Plan Plan of care initiated -MR -- PT Recommendation/Plan Home with 24 hour supervision;Home Health PT;Home Health OT -MR -- PT Frequency during current admission Daily -MR -- Treatment/Interventions during current admission Balance Training;Bed mobility;Endurance training;Functional transfer training;Gait training;Strengthening;Therapeutic exercise;Transfer training -MR -- PT Evaluation Complete Yes -MR -- User Boyer (r) = Recorded By, (t) = Taken By, (c) = Cosigned By Initials Name Effective Dates Marilyn Carrera, PT 10/31/21 - PT TREATMENT (last 168 hours) PT Treatment Row Name 11/02/23 1109 11/01/23 1001 10/31/23 0927 PT Last Visit Session Type Treatment - Treatment - -- Safe Environment Patient found sitting in chair;Arm band checked;Gait belt utilized for all out of bed mobility;Session completed bedside - Arm band checked;Patient found sitting at edge of bed --- Subjective Agreeable to Therapy - Agreeable to Therapy - -- Subjective Comment I'm hoping to eat my breakfast before I go walking. Pt had already eaten her breakfast. - My legs feel stiff - -- PT Missed Visit Reason -- -- -- Pt getting dialysis. -SIVA Family/Caregiver Present No - -- -- Precautions Precautions Bed/Chair Alarm;Fall risk - -- -- Pain Assessment Pain Assessment No/denies pain - No/denies pain - -- Cognition Arousal/Alertness Alert - -- -- Orientation Oriented to person;Oriented to place - Oriented to person;Oriented to place - -- Following Commands Follows one step commands without difficulty [facility] -- -- Transfer 1 Transfer From 1 Cardiac chair;Sit - Bed - -- Transfer Type 1 To and from [facility] To [facility] -- Transfer to 1 Stand - Chair with arms - -- Technique 1 Sit to stand;Stand to sit - Sit to stand;Stand to sit - -- Transfer Device 1 Wheeled walker - Wheeled walker - -- Transfer Level of Assistance 1 Contact Guard Assist - Contact Guard Assist - -- Trials/Comments 1 Cues for hand placement on the chair arms vs the walker. - Verbal cues for handplacement [facility] -- Ambulation Functional Ambulation Category 2 - -- -- Ambulation Yes - -- -- Ambulation 1 Distance (ft) 1 135 - 90 - -- Surface 1 Level tile - Level tile - -- Device 1 Wheeled walker - Wheeled walker [facility] -- Assistance 1 Contact Guard Assist - Contact Guard Assist - -- Gait: Requires assist with 1 Maintaining balance - Maintaining balance - -- Gait: Requires verbal cues to 1 Use assistive device safely;Prevent bumping into environmental barriers (huizar/furniture);Increase step length - Increase step length;Increase base of support [facility] -- Gait Deviations 1 Brigid - decreased;Step length - decreased - Brigid - decreased;Base of support - decreased;Step length - decreased - -- Quality of Gait 1 Good - good [facility] -- Ambulation Comments 1 Pt ambulated well w/FWW. No LOB noted. Pt follows navigational cues w/o difficulty. - Pt ambulates well with no LOB - -- Safe Environment End of Therapy Session Safe Environment End of Therapy Session Patient left in recliner;Chair alarm in place and activated;RN notified;Call light within reach;Overbed table within reach - Patient left in recliner;Chair alarm in place and activated;Call light within reach;Overbed table within [facility] - -- Assessment Prognosis -- Good - -- Recommendation/Plan PT Recommendation/Plan Home with 24 hour supervision;Home Health PT;Home Health OT - Home with 24hour supervision;Home Health PT;Home Health OT - -- Progress during current admission Progressing toward goals - -- -- User Boyer (r) = Recorded By, (t) = Taken By, (c) = Cosigned By Initials Name Effective Dates Hattie Rai, FILM WASHER 10/25/20 - Wilner Kruse, FILM WASHER 10/24/20 - MK Maddie Lepe, FILM WASHER 01/30/21 - PT Notes Notes from 10/31/23 through 11/02/23 No notes of this type exist for this encounter. , Vitals Info Only Vital Signs 10/31 0700 11/01 0659 11/01 0700 11/01 1555 Most Recent Temp (??C) 36.6 - 37.1 36.7 - 36.8 36.8 (98.2) 11/01 1529 Pulse 65 - 84 62 - 64 64 11/01 1529 Resp 16 - 20 18 18 11/01 1529 SpO2 (%) 98 - 100 99 - 100 100 11/01 1529 BP 141/52 - 170/63 155/57 - 159/68 159/68 11/01 1529 MAP (mmHg) 78 - 91 84 - 96 96 11/01 1529 * Plan of Care - Olivia Warren RN - 11/02/2023 3:03 PM CDT Patient is currently at [facility] for HD in [place], [place] on ,, per Brittney. PH:[phone] * Plan of Care - Masha Chilel RN - 11/02/2023 2:47 AM CDT Goals: Promote rest, safety, ambulate in room Assessment of patient???s baseline is established at the beginning of the shift in flowsheets. Patient reassessed per order, unexpected findings and/or deviations from baseline are captured in flowsheets. Frequent safety checks and comfort rounds provided. Orders and/or nursing care completed as indicated. Patient monitored for response to interventions and treatments as documented in flowsheets. Plan of care discussed with patient/leather goods sales representative, including as it relates to Principal Problem: Altered mental status, unspecified altered mental status type Active Problems: AMS (altered mental status) ESRD (end stage renal disease) on dialysis (HCC) Patient progressing. Education provided includes Fall Prevention and Skin Breakdown Prevention/Treatment. Patient and/or leather goods sales representative Verbalizes understanding. * Plan of Care - Kristyn Blake RN - 11/01/2023 9:10 AM CDT Goals: Clinical Goals for the Shift: safety, rest, comfort, VSS Summary: * Plan of Care - Asmita Lcuas RN - 11/01/2023 4:57 AM CDT Problem: Health Nutrition Goal: Nutritional intake and knowledge related to Diabetes will improve Outcome: Progressing Problem: Fall Risk Goal: Will remain free from falls Outcome: Progressing Goal: Will remain free from injury from falls Outcome: Progressing Goals: Clinical Goals for the Shift: safety, rest, comfort, VSS * Plan of Care - Kristyn Blake RN - 10/31/2023 8:20 AM CDT Goals: Clinical Goals for the Shift: safety, rest, comfort, VSS Summary: * Plan of Care - Alexia Beltrán RN - 10/31/2023 5:38 AM CDT Problem: Lack of Knowledge Goal: Knowledge of risk factors and measures for prevention of condition will improve Outcome: Ongoing Problem: Physical Regulation Goal: Spread of further infection will be prevented Outcome: Ongoing Goal: Complications related to the disease process, condition, or treatment will be avoided or minimized Outcome: Ongoing Problem: Lack of Knowledge Goal: [...] to Diabetes will improve Outcome: Ongoing Problem: Discharge Planning Goal: Understanding discharge needs will improve Outcome: Ongoing Problem: Fall Risk Goal: Ability to state ways to decrease the risk of falls will improve Outcome: Ongoing Goal: Will remain free from falls Outcome: Ongoing Goal: Will remain free from injury from falls Outcome: Ongoing Goals: Clinical Goals for the Shift: comfort, safety, stable neuro exam Summary: * Plan of Care - Monserrat Rolle RN - 10/30/2023 3:05 PM CDT Problem: Lack of Knowledge Goal: Knowledge of risk factors and measures for prevention of condition will improve Outcome: Progressing Problem: Physical Regulation Goal: Spread of further infection will be prevented Outcome: Progressing Goal: Complications related to the disease process, condition, or treatment will be avoided or minimized Outcome: Progressing Problem: Lack of Knowledge Goal: [...] to Diabetes will improve Outcome: Progressing Problem: Discharge Planning Goal: Understanding discharge needs will improve Outcome: Progressing Problem: Fall Risk Goal: Ability to state ways to decrease the risk of falls will improve Outcome: Progressing Goal: Will remain free from falls Outcome: Progressing Goal: Will remain free from injury from falls Outcome: Progressing Goals: Clinical Goals for the Shift: comfort, safety, stable neuro exam Summary: VSS, MRI, CARMELINA, EEG done this shift, med changes made, Neuro and Nephro consult placed, denies complaints, appetite good * Plan of Care - Olivia Warren RN - 10/30/2023 1:57 PM CDT CARE COORDINATION DISCHARGE PLANNING HOME: Patient will d/c home with support from family. Transportation home provided by daughter. Patient/Family denies needs or barriers to care. ANTICIPATED D/C DATE:10/31/23 CM will continue to follow for progression of care, if further needs for discharge or barriers to care arise, please reach out to care management team. Olivia Warren RN 10/30/2023 1:57 PM * Incidental Note - Olivia Warren RN - 10/30/2023 12:15 PM CDT CM Initial Assessment Interview Note Information Obtained From: Patient (10/30/231214) Admission Source: ER from home. Impression: Admitted for AMS, Hypotension, HX of Dementia. Plan Includes: Met with patient while at bedside. She would like to return home upon d/c; Lives with her daughter who is also her pain Big Data Admin 7 days a week. Denies needs. Transportation to be provided by her daughter upon d/c. Primary Source of Transportation: Does the patient need discharge transport arranged?: No (10/30/231214) Health Insurance Coverage: Medicare/Medicare Part A&B, IDPA/IDPA Prescription Coverage: Yes Pharmacy: [id number] - [place] - [address] [place] [address] [facility] [place] - [place], [place] - [address] [facility] [id number] Primary Care Provider: Duane Corcoran MD Prior to Admission: Functional Status: Minimal assist with ADLs Primary Caregiver: Family Support System: Children Home Care Services: Yes Type of Home Care Services: shut off worker Home care service name and 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: Daughter is her Big Data Admin 7x week. Outpatient Services: No Durable Medical Equipment: Home Modification Assessment (railes in bathroom), Shower chair, Walker (wheeled) Living Arrangements: Children Type of Residence: Private residence Medication management: Needs Assistance (Comment) (10/30/23 1215) SDOH: Transportation: In the past 12 months, has lack of transportation kept you from medical appointments or from getting medications?: No In the past 12 months, has lack of transportation kept you from meetings, work, or from getting things needed for daily living?: No (10/30/231333) Financial Resource: How hard is it for you to pay for the very basics like food, housing, medical care, and heating?: Not very hard (10/30/23 133) Housing: In the last 12 months, was there a time when you were not able to pay the mortgage or rent on time?: No In the last 12 months, how many places have you lived?: 1 In the last 12 months, was there a time when you did not have a steady place to sleep or slept in [place] (including now)?: No (10/30/231333) Utilities: No, (10/30/231333) Social Connections: In a typical week, how many times do you talk on the phone with family, friends, or neighbors?: More than three times a week How often do you get together with friends or relatives?: More than three times a week How often do you attend scientologist or denominational services?: More than 4 times per year Do you belong to any clubs or organizations such as scientologist groups, unions, fraternal or athletic groups, or school groups?: No How often do you attend meetings of the clubs or organizations you belong to?: Never Are you , , , , never , or living with a partner?: (10/30/23 589) Food Insecurity: Within the past 12 months, you worried that your food would run out before you got the money to buymore.: Never true Within the past 12 months, the food you bought just didn't last and you didn't have money to get more.: Never true (10/30/23 1334) Potential discharge needs include: Home Health: shelter, Physical therapy, Occupational therapy (10/30/23 121) Behavioral Health Services: Behavioral Health Services: No (10/30/231214) Anticipated Level of Care: Anticipated discharge level of care: Private residence Pt/Family agrees with Anticipated Level of Care: Yes (10/30/231214) Patient expects to be Discharged to: Private residence, (10/30/23 121) Patient's Identified Problem/Goal Problem: Ensure acute medical needs are met and that patient has a safe discharge plan. Goal: Secure a discharge plan that patient/family are agreeable with and ensure patient has continuum of care. Case management will follow for discharge planning and send referrals as needed. Olivia Warren RN * Plan of Care - Alexia Beltrán RN - 10/30/2023 4:20 AM CDT Problem: Lack of Knowledge Goal: Knowledge of risk factors and measures for prevention of condition will improve Outcome: Progressing Problem: Physical Regulation Goal: Spread of further infection will be prevented Outcome: Progressing Goal: Complications related to the disease process, condition, or treatment will be avoided or minimized Outcome: Progressing Problem: Lack of Knowledge Goal: [...] related to Diabetes will improve Outcome: Progressing Goals: Summary: * ED Procedure Note - Robert Betts MD - 10/29/2023 9:37 PM CDTAssociated Order(s): ECG 12 lead Procedure ECG 12 lead Date/Time: 10/29/2023 9:37 PM Performed by: Robert Betts MD Authorized by: Robert Betts MD Rate: ECG rate: 71 ECG rate assessment: normal Rhythm: Rhythm: sinus rhythm Ectopy: Ectopy: none QRS: QRS axis: Normal QRS intervals: Normal Conduction: Conduction: normal ST segments: ST segments: Normal T waves: T waves: normal Interpretation: Interpretation: No acute injury pattern Recommended Follow-up: Recommended follow up: further workup in the ED Robert Betts MD 10/29/232136 documented in this encounter Plan of Treatment Upcoming Encounters Date Type Department Care Team (Latest Contact Info) Description 07/13/2024 9:00 AM PROFESSIONAL ATHLETE Hospital Encounter [facility] [address] [place] [id number] Jaya Grier MD [address] [place] [address] [address] GAINES [address] [place] [id number] 07/13/2024 9:00 AM PROFESSIONAL ATHLETE - 07/13/2024 9:30 AM PROFESSIONAL ATHLETE Surgery [facility] [address] [place] [id number] Jaya Grier MD [address] [place] [address] DR GAINES [address] [place] [id number] ESOPHAGOGASTRODUODENOSCOPY Pending Results Name Type Priority Associated Diagnoses Date /Time Troponin T high-sensitivity series (baseline, 2hr, 4hr, 6hr) Lab STAT 10/29/2023 6:26 PM CDT Scheduled Orders Name Type Priority Associated Diagnoses Orde r Schedule Troponin T high-sensitivity series (baseline, 2hr, 4hr, 6hr) Lab STAT Once for 1 Occur rences starting 10/29/2023 until 10/29/2023 Scheduled Procedures Name Priority Associated Diagnoses Date/Ti me ESOPHAGOGASTRODUODENOSCOPY Anemia, unspecified type Gastritis without bleeding, unspecified chronicity, unspecified gastritis type 07/13/2024 9:00 AM PROFESSIONAL ATHLETE COLONOSCOPY Iron deficiency anemia due to chronic blood loss documented as of this encounter Procedures Procedure Name Priority Date/Time Associated Diagnosis Comments POCT GLUCOSE DEVICE Routine 11/03/2023 5 :47 PM CDT POCT GLUCOSE DEVICE Routine 11/03/2023 1 1:53 AM CDT POCT GLUCOSE DEVICE Routine 11/03/2023 8 :23 AM CDT EGFR Routine 11/03/2023 6:36 AM CDT DIFFERENTIAL AUTO Routine 11/03/2023 6:3 6 AM CDT CBC WITH AUTO DIFFERENTIAL Routine 11/03/2023 6:36 AM CDT BASIC METABOLIC PANEL Routine 11/03/2023 6:36 AM CDT HEMODIALYSIS Routine 11/03/2023 12:31 AM CDT POCT GLUCOSE DEVICE Routine 11/02/2023 8 :42 PM CDT POCT GLUCOSE DEVICE Routine 11/02/2023 4 :14 PM CDT EGFR Routine 11/02/2023 4:43 AM CDT DIFFERENTIAL AUTO Routine 11/02/2023 4:4 3 AM CDT CBC WITH AUTO DIFFERENTIAL Routine 11/02/2023 4:43 AM CDT BASIC METABOLIC PANEL Routine 11/02/2023 4:43 AM CDT POCT GLUCOSE DEVICE Routine 11/01/2023 8 :40 PM CDT POCT GLUCOSE DEVICE Routine 11/01/2023 1 1:26 AM CDT BLOOD CULTURE STAT 11/01/2023 9:46 AM CDT BLOOD CULTURE STAT 11/01/2023 9:46 AM CDT POCT GLUCOSE DEVICE Routine 11/01/2023 8 :16 AM CDT EGFR Routine 11/01/2023 5:06 AM CDT DIFFERENTIAL AUTO Routine 11/01/2023 5:0 6 AM CDT CBC WITH AUTO DIFFERENTIAL Routine 11/01/2023 5:06 AM CDT BASIC METABOLIC PANEL Routine 11/01/2023 5:06 AM CDT POCT GLUCOSE DEVICE Routine 10/31/2023 1 0:45 PM CDT DRUGS OF ABUSE SCREEN, URINE WITHOUT CONFIRMATION Routine 10/31/2023 10:34 PM CDT POCT GLUCOSE DEVICE Routine 10/31/2023 8 :37 PM CDT POCT GLUCOSE DEVICE Routine 10/31/2023 6 :06 PM CDT POCT GLUCOSE DEVICE Routine 10/31/2023 7 :21 AM CDT HEMODIALYSIS Routine 10/31/2023 6:30 AM CDT EGFR Routine 10/31/2023 4:51 AM CDT DIFFERENTIAL AUTO Routine 10/31/2023 4:5 1 AM CDT CBC WITH AUTO DIFFERENTIAL Routine 10/31/2023 4:51 AM CDT BASIC METABOLIC PANEL Routine 10/31/2023 4:51 AM CDT POCT GLUCOSE DEVICE Routine 10/30/2023 8 :29 PM CDT POCT GLUCOSE DEVICE Routine 10/30/2023 5 :39 PM CDT EEG Routine 10/30/2023 3:55 PM CDT POCT GLUCOSE DEVICE Routine 10/30/2023 1 2:56 PM CDT POCT GLUCOSE DEVICE Routine 10/30/2023 1 1:24 AM CDT INFLUENZA A/B, RSV, AND COVID-19 PCR Routine 10/30/2023 10:08 AM CDT POCT GLUCOSE DEVICE Routine 10/30/2023 9 :39 AM CDT US CAROTIDS DUPLEX BILATERAL IP Routine 10/30/2023 9:21 AM CDT ECG 12-LEAD Routine 10/30/2023 9:14 AM CDT MRI BRAIN WO CONTRAST IP Routine 10/30/2023 8:12 AM CDT TRANSTHORACIC ECHO (TTE) COMPLETE W DOPPLER/CF WO CONTRAST Routine 10/30/2023 8:11 AM CDT EGFR Routine 10/30/2023 4:46 AM CDT CBC WITHOUT DIFFERENTIAL Routine 10/30/2023 4:46 AM CDT PHOSPHORUS Routine 10/30/2023 4:46 AM CDT MAGNESIUM Routine 10/30/2023 4:46 AM CDT LIPID PANEL Routine 10/30/2023 4:46 AM CDT COMPREHENSIVE METABOLIC PANEL Routine 10/30/2023 4:46 AM CDT TROPONIN T HIGH-SENSITIVITY 6-HOUR Timed 10/30/2023 12:15 AM CDT POCT GLUCOSE DEVICE Routine 10/29/2023 1 1:43 PM CDT TROPONIN T HIGH-SENSITIVITY 4-HR Timed 10/29/2023 10:24 PM CDT TROPONIN T HIGH-SENSITIVITY 2-HOUR Timed 10/29/2023 8:[address] HEAD WO CONTRAST ED 10/29/2023 7 :59 PM CDT URINALYSIS AND REFLEX TO MICROSCOPIC AND CULTURE STAT 10/29/2023 6:43 PM CDT URINALYSIS, MICROSCOPIC ONLY STAT 10/29/2023 6:43 PM CDT TROPONIN T HIGH-SENSITIVITY SERIES (BASELINE, 2HR, 4HR, 6HR) STAT 10/29/2023 6:26 PM CDT EGFR STAT 10/29/2023 6:26 PM CDT DIFFERENTIAL AUTO STAT 10/29/2023 6:2 6 PM CDT CBC WITH AUTO DIFFERENTIAL STAT 10/29/2023 6:26 PM CDT COMPREHENSIVE METABOLIC PANEL STAT 10/29/2023 6:26 PM CDT XR CHEST 1 VIEW ED 10/29/2023 6:16 PM CDT ECG 12-LEAD STAT 10/29/2023 6:04 PM CDT documented in this encounter Results * POCT glucose (11/03/2023 5:47 PM CDT) [facility] Signature Glucose, POC 148 70 - 199 mg/dL Comment:Testing performed by : [facility], [address] [place] [address]., [id number] Blood 11/03/2023 5:47 PM CDT 11/03/2023 5:47 PM CDT us Johnathan Rae MD LAB POCT ORDERABLES - DEVICE Final Result NILSA [address] [facility] Department [place] [address] * POCT glucose (11/03/2023 11:53 AM CDT) [facility] Glucose, POC 103 70 - 199 mg/dL Comment:Testing performed by : [address] [address] Blood 11/03/2023 11:5 3 AM CDT 11/03/2023 11:53 AM CDT Johnathan Rae MD LAB POCT ORDERABLES - DEVICE Final Result Performing Organization Address [facility] de Phone Number [address] [place] [address] * POCT glucose (11/03/2023 8:23 AM CDT) [facility] Glucose, POC 105 70 - 199 mg/dL Comment:Testing performed by : [address] [address] Blood 11/03/2023 8:23 AM CDT 11/03/2023 8:23 AM CDT Johnathan Rae MD LAB POCT ORDERABLES - DEVICE Final Result Performing Organization Address [facility] de Phone Number [address] [address] * (ABNORMAL) eGFR (11/03/2023 6:36 AM CDT) Pathologist [facility] eGFR 9(L) >=60 mL/min/1. 73 m2 Comment: [...] was last reviewed 2021. Testing performed by: [address] [address] Blood 11/03/2023 6:36 AM CDT 11/03/2023 6:41 AM CDT us Aylin Kauffman MD LAB BLOOD ORDERABLES Final Resu lt [facility] [address] [facility] Department [place] [address] * Differential, auto (11/03/2023 6:36 AM CDT) Neutrophil abs 5.8 1.5 - 6.5 K/cumm Comment:Testing performed by : [address] [address] Imm gran abs 0.0 0.0 - 0.1 K/cumm NILSA Comment:Testing performed by : [address] [address] Lymphocyte abs 3.3 0.8 - 3.3 K/cumm NILSA Comment:Testing performed by : [address] [address] Monocyte abs 0.7 0.2 - 0.8 K/cumm NILSA Comment:Testing performed by : [address] [address] Eosinophil abs 0.3 0.0 - 0.5 K/cumm [facility] Comment:Testing performed by : [address] [address] Basophil abs 0.0 0.0 - 0.1 K/cumm [facility] Comment:Testing performed by : [address] [address] Neutrophil pct 57.2 % [facility] Comment: Interpretive Data Percent cell count reference ranges are not reported, since discordance with absolute values may lead to misinterpretation of CBC data. Current Interpretive Data was last revised on 2017. Testing performed by: [address] [address] Imm gran pct 0.3 % [facility] Comment: Interpretive Data Percent cell count reference ranges are not reported, since discordance with absolute values may lead to misinterpretation of CBC data. Current Interpretive Data was last revised on 2017. Testing performed by: [address] [address] Lymphocyte pct 32.4 % [facility] Comment: Interpretive Data Percent cell count reference ranges are not reported, since discordance with absolute values may lead to misinterpretation of CBC data. Current Interpretive Data was last revised on 2017. Testing performed by: [address] [address] Monocyte pct 7.0 % [facility] Comment: Interpretive Data Percent cell count reference ranges are not reported, since discordance with absolute values may lead to misinterpretation of CBC data. Current Interpretive Data was last revised on 2017. Testing performed by: [address] [address] Eosinophil pct 2.8 % [facility] Comment: Interpretive Data Percent cell count reference ranges are not reported, since discordance with absolute values may lead to misinterpretation of CBC data. Current Interpretive Data was last revised on 2017. Testing performed by: [address] [address] Basophil pct 0.3 % [facility] Comment: Interpretive Data Percent cell count reference ranges are not reported, since discordance with absolute values may lead to misinterpretation of CBC data. Current Interpretive Data was last revised on 2017. Testing performed by: [address] [address] Blood 11/03/2023 6:36 AM CDT 11/03/2023 6:41 AM CDT us Aylin Kauffman MD LAB BLOOD ORDERABLES Final Resu lt NILSA [address] [facility] Department [place] [address] * (ABNORMAL) Basic metabolic panel (11/03/2023 6:36 AM CDT) Sodium 144 135 - 145 mmol/L Comment:Testing performed by : [address] [address] Potassium, pl 4.6 3.3 - 4.9 mmol/L NILSA Comment:Testing performed by : [address] [address] Chloride 110 97 - 110 mmol/L NILSA Comment:Testing performed by : [address] [address] CO2 21(L) 22 - 32 mmol/L NILSA Comment:Testing performed by : [address] [address] Anion gap 13 2 - 15 mmol/L NILSA Comment:Testing performed by : [address] [address] BUN 68(H) 6 - 25 mg/dL NILSA Comment:Testing performed by : [address] [address] Creatinine 5.00(H) 0.60 - 1.10 mg/dL NILSA Comment:Testing performed by : [address] [address] Glucose 98 70 - 199 mg/dL NILSA Comment: Interpretive [...] was last revised 2022. Testing performed by: [address] [address] Calcium 8.8 8.5 - 10.3 mg/dL NILSA RODRIGES Comment:Testing performed by : [address] [address] Blood 11/03/2023 6:36 AM CDT 11/03/2023 6:41 AM CDT us Aylin Kauffman MD LAB BLOOD ORDERABLES Final Resu lt Performing Organization Address City/State/[facility] Co de Phone Number NILSA [address] [facility] Department [place] [address] * (ABNORMAL) CBC with auto differential (11/03/2023 6:36 AM CDT) WBC 10.2(H) 3.8 - 9.9 K/cumm Comment:Testing performed by : [address] [address] Hgb 8.3(L) 11.9 - 15.5 g/dL NILSA RODRIGES Comment:Testing performed by : [address] [address] Hct 26.4(L) 35.6 - 45.5 % NILSA RODRIGES Comment:Testing performed by : [address] [address] Plt 282 150 - 400 K/cumm NILSA RODRIGES Comment:Testing performed by : [address] [address] MPV 10.2 9.1 - 12.3 fL NILSA RODRIGES Comment:Testing performed by : [address] [address] RBC 2.78(L) 3.90 - 5.20 M/cumm NILSA RODRIGES Comment:Testing performed by : [address] [address] MCV 95.0 81.3 - 96.4 fL NILSA RODRIGES Comment:Testing performed by : [address] [address] MCH 29.9 27.1 - 33.3 pg NILSA RODRIGES Comment:Testing performed by : [address] [address] MCHC 31.4(L) 32.3 - 35.7 g/dL NILSA RODRIGES Comment:Testing performed by : [address], [address] RDW CV 13.4 11.1 - 14.9 % NILSA Comment:Testing performed by : [address] [address] RDW SD 47.3 35.7 - 48.1 fL NILSA Comment:Testing performed by : [address] [address] NRBC abs 0.00 0.00 - 0.01 K/cumm NILSA Comment:Testing performed by : [address], [address] Blood 11/03/2023 6:36 AM CDT 11/03/2023 6:41 AM CDT us Aylin Kauffman MD LAB BLOOD ORDERABLES Final Resu lt [facility] [address] [facility] Department of Laboratories [place], [place] [id number] * POCT glucose (11/02/2023 8:42 PM CDT) [facility] Glucose, POC 124 70 - 199 mg/dL Comment:Testing performed by : [address] [address] Glucose comment 1 Use This Result NILSA Comment:Testing performed by : [address], [address] Blood 11/02/2023 8:42 PM CDT 11/02/2023 8:42 PM CDT Charlotte Bird MD LAB POCT ORDERABLES - DEVICE Fin al Result Performing Organization Address [facility] Co de Phone Number NILSA [facility] [place] [address] * POCT glucose (11/02/2023 4:14 PM CDT) [facility] Glucose, POC 89 70 - 199 mg/dL Comment:Testing performed by : [facility], [address] [place] [address]., [address] Glucose comment 1 Use This Result NILSA Comment:Testing performed by : [facility], [address] [place] [address]., [address] Blood 11/02/2023 4:14 PM CDT 11/02/2023 4:14 PM CDT Charlotte Bird MD LAB POCT ORDERABLES - DEVICE Fin al Result Performing Organization Address [facility] de Phone Number CARLOS [address] [address] * (ABNORMAL) eGFR (11/02/2023 4:43 AM CDT) [facility] eGFR 8(L) >=60 mL/min/1. 73 m2 [...] was last reviewed 2021. Testing performed by: [address] [address] Blood 11/02/2023 4:43 AM CDT 11/02/2023 5:11 AM CDT us Aylin Kauffman MD LAB BLOOD ORDERABLES Final Resu lt NILSA [address] [facility] Department [place] [address] * Differential, auto (11/02/2023 4:43 AM CDT) Neutrophil abs 6.1 1.5 - 6.5 K/cumm Comment:Testing performed by : [address] [address] Imm gran abs 0.0 0.0 - 0.1 K/cumm NILSA RODRIGES Comment:Testing performed by : [address] [address] Lymphocyte abs 2.5 0.8 - 3.3 K/cumm NILSA Comment:Testing performed by : [address] [address] Monocyte abs 0.6 0.2 - 0.8 K/cumm NILSA RODRIGES Comment:Testing performed by : [address] [address] Eosinophil abs 0.2 0.0 - 0.5 K/cumm NILSA Comment:Testing performed by : [address] [address] Basophil abs 0.0 0.0 - 0.1 K/cumm NILSA Comment:Testing performed by : [address] [address] Neutrophil pct 64.2 % [facility] Comment: Interpretive Data Percent cell count reference ranges are not reported, since discordance with absolute values may lead to misinterpretation of CBC data. Current Interpretive Data was last revised on 2017. Testing performed by: [address] [address] Imm gran pct 0.2 % [facility] Comment: Interpretive Data Percent cell count reference ranges are not reported, since discordance with absolute values may lead to misinterpretation of CBC data. Current Interpretive Data was last revised on 2017. Testing performed by: [address] [address] Lymphocyte pct 26.2 % [facility] Comment: Interpretive Data Percent cell count reference ranges are not reported, since discordance with absolute values may lead to misinterpretation of CBC data. Current Interpretive Data was last revised on 2017. Testing performed by: [address] [address] Monocyte pct 6.8 % [facility] Comment: Interpretive Data Percent cell count reference ranges are not reported, since discordance with absolute values may lead to misinterpretation of CBC data. Current Interpretive Data was last revised on 2017. Testing performed by: [address] [address] Eosinophil pct 2.3 % [facility] Comment: Interpretive Data Percent cell count reference ranges are not reported, since discordance with absolute values may lead to misinterpretation of CBC data. Current Interpretive Data was last revised on 2017. Testing performed by: [address] [address] Basophil pct 0.3 % [facility] Comment: Interpretive Data Percent cell count reference ranges are not reported, since discordance with absolute values may lead to misinterpretation of CBC data. Current Interpretive Data was last revised on 2017. Testing performed by: [address] [address] Blood 11/02/2023 4:43 AM CDT 11/02/2023 5:12 AM CDT us Aylin Kauffman MD LAB BLOOD ORDERABLES Final Resu lt NILSA [address] [facility] Department [place] [address] * (ABNORMAL) Basic metabolic panel (11/02/2023 4:43 AM CDT) Sodium 140 135 - 145 mmol/L Comment:Testing performed by : [address] [address] Potassium, pl 4.6 3.3 - 4.9 mmol/L NILSA Comment:Testing performed by : [address] [address] Chloride 106 97 - 110 mmol/L NILSA Comment:Testing performed by : [address] [address] CO2 22 22 - 32 mmol/L NILSA Comment:Testing performed by : [address] [address] Anion gap 12 2 - 15 mmol/L NILSA Comment:Testing performed by : [address] [address] BUN 61(H) 6 - 25 mg/dL NILSA Comment:Testing performed by : [address] [address] Creatinine 5.20(H) 0.60 - 1.10 mg/dL NILSA Comment:Testing performed by : [address] [address] Glucose 127 70 - 199 mg/dL NILSA Comment: Interpretive [...] was last revised 2022. Testing performed by: [address] [address] Calcium 8.7 8.5 - 10.3 mg/dL NILSA RODRIGES Comment:Testing performed by : [address] [address] Blood 11/02/2023 4:43 AM CDT 11/02/2023 5:11 AM CDT us Aylin Kauffman MD LAB BLOOD ORDERABLES Final Resu lt NILSA RODRIGES [facility] Department [place] [address] * (ABNORMAL) CBC with auto differential (11/02/2023 4:43 AM CDT) WBC 9.4 3.8 - 9.9 K/cumm Comment:Testing performed by : [address] [address] Hgb 8.7(L) 11.9 - 15.5 g/dL NILSA RODRIGES Comment:Testing performed by : [address] [address] Hct 27.2(L) 35.6 - 45.5 % NILSA RODRIGES Comment:Testing performed by : [address] [address] Plt 250 150 - 400 K/cumm NILSA RODRIGES Comment:Testing performed by : [address] [address] MPV 10.5 9.1 - 12.3 fL NILSA RODRIGES Comment:Testing performed by : [address] [address] RBC 2.83(L) 3.90 - 5.20 M/cumm NILSA RODRIGES Comment:Testing performed by : [address] [address] MCV 96.1 81.3 - 96.4 fL NILSA RODRIGES Comment:Testing performed by : [address] [address] MCH 30.7 27.1 - 33.3 pg NILSA RODRIGES Comment:Testing performed by : [address] [address] MCHC 32.0(L) 32.3 - 35.7 g/dL NILSA RODRIGES Comment:Testing performed by : [address] [address] RDW CV 13.5 11.1 - 14.9 % NILSA RODRIGES Comment:Testing performed by : [address] [address] RDW SD 47.7 35.7 - 48.1 fL NILSA Comment:Testing performed by : [address] [address] NRBC abs 0.00 0.00 - 0.01 K/cumm NILSA RODRIGES Comment:Testing performed by : [address] [address] Blood 11/02/2023 4:43 AM CDT 11/02/2023 5:12 AM CDT us Aylin Kauffman MD LAB BLOOD ORDERABLES Final Resu lt Performing Organization Address City/State/[facility] Co de Phone Number NILSA [facility] Department [place] [address] * POCT glucose (11/01/2023 8:40 PM CDT) [facility] Signature Glucose, POC 151 70 - 199 mg/dL Comment:Testing performed by : [address] [address] Glucose comment 1 Use This Result NILSA Comment:Testing performed by : [address] [address] Blood 11/01/2023 8:40 PM CDT 11/01/2023 8:40 PM CDT us Charlotte Bird MD LAB POCT ORDERABLES - DEVICE Fin al Result Performing Organization Address City/[facility]/ZIP Co de Phone Number NILSA [facility] [place] [address] * POCT glucose (11/01/2023 11:26 AM CDT) Glucose, POC 171 70 - 199 mg/dL Comment:Testing performed by : [facility], [address] [place] [address]., [address] Glucose comment 1 Use This Result NILSA Comment:Testing performed by : [facility], [address] [place] [address]., [address] Blood 11/01/2023 11:2 6 AM CDT 11/01/2023 11:26 AM CDT Charlotte Bird MD LAB POCT ORDERABLES - DEVICE Fin al Result Performing Organization Address [facility] Co de Phone Number [place] [phone] [facility] [place] [address] * Blood culture Blood (11/01/2023 9:46 AM CDT) Report Final Report: No growth Comment:Testing performed by : [facility], [address] [facility] [place]., [address] Blood 11/01/2023 9:46 AM CDT 11/01/2023 3:55 PM CDT Narrative NILSA - 11/05/2023 4:00 PM CDT From a different site than #1. Collection->Peripheral 1. ?Blood cultures are incubated for [...] organism identification may be performed using the [employer] Gram-Positive Blood Culture Assay. This assay detects microbial DNA in positive blood culture broth via hybridization of target DNA to capture oligonucleotides on a microarray. This assay has been cleared by the [place] Food and Drug Administration and its performance characteristics have been verified by the [facility]. 5. ?For questions about this culture, contact the Microbiology Laboratory at [phone]. Interpretive data was last revised on 2019. Charlotte Bird MD LAB MICROBIOLOGY - GENERAL ORDER ARIADNA Final Result NILSA [address] [facility] Department [place] [address] * Blood culture Blood (11/01/2023 9:46 AM CDT) Report Final Report: No growth Comment:Testing performed by : [facility], [address] [facility]., [address] Blood 11/01/2023 9:46 AM CDT 11/01/2023 3:55 PM CDT [facility] NILSA - 11/05/2023 4:00 PM CDT Collection->Peripheral 1. ?Blood cultures are incubated [...] performance characteristics have been verified by the [facility]. 5. ?For questions about this culture, contact the Microbiology Laboratory at [phone]. Interpretive data was last revised on 2019. Charlotte Bird MD LAB MICROBIOLOGY - GENERAL ORDER ARIADNA Final Result Performing Organization Address [facility] Co de Phone Number NILSA [address] [facility] [place] [address] * POCT glucose (11/01/2023 8:16 AM CDT) [facility] Glucose, POC 126 70 - 199 mg/dL Comment:Testing performed by : [facility], [address] [place] [address]., [address] Blood 11/01/2023 8:16 AM CDT 11/01/2023 8:16 AM CDT Charlotte Bird MD LAB POCT ORDERABLES - DEVICE Fin al Result Performing Organization Address [facility] de Phone Number NILSA [facility] [place] [address] * (ABNORMAL) eGFR (11/01/2023 5:06 AM CDT) Pathologist [facility] eGFR 11(L) >=60 mL/min/1. 73 m2 Comment: Interpretive Data [...] was last reviewed 2021. Testing performed by: [address] [address] Blood 11/01/2023 5:06 AM CDT 11/01/2023 6:07 AM CDT us Aylin Kauffman MD LAB BLOOD ORDERABLES Final Resu lt NILSA RODRIGES [address] [facility] Department [place] [address] * (ABNORMAL) Differential, auto (11/01/2023 5:06 AM CDT) Neutrophil abs 9.2(H) 1.5 - 6.5 K/cumm Comment:Testing performed by : [address] [address] Imm gran abs 0.0 0.0 - 0.1 K/cumm NILSA RODRIGES Comment:Testing performed by : [address] [address] Lymphocyte abs 3.2 0.8 - 3.3 K/cumm NILSA RODRIGES Comment:Testing performed by : [address] [address] Monocyte abs 0.8 0.2 - 0.8 K/cumm NILSA Comment:Testing performed by : [address] [address] Eosinophil abs 0.2 0.0 - 0.5 K/cumm NILSA Comment:Testing performed by : [address] [address] Basophil abs 0.0 0.0 - 0.1 K/cumm NILSA Comment:Testing performed by : [address] [address] Neutrophil pct 68.5 % [facility] Comment: Interpretive Data Percent cell count reference ranges are not reported, since discordance with absolute values may lead to misinterpretation of CBC data. Current Interpretive Data was last revised on 2017. Testing performed by: [address] [address] Imm gran pct 0.3 % [facility] Comment: Interpretive Data Percent cell count reference ranges are not reported, since discordance with absolute values may lead to misinterpretation of CBC data. Current Interpretive Data was last revised on 2017. Testing performed by: [address] [address] Lymphocyte pct 23.6 % [facility] Comment: Interpretive Data Percent cell count reference ranges are not reported, since discordance with absolute values may lead to misinterpretation of CBC data. Current Interpretive Data was last revised on 2017. Testing performed by: [address] [address] Monocyte pct 5.8 % [facility] Comment: Interpretive Data Percent cell count reference ranges are not reported, since discordance with absolute values may lead to misinterpretation of CBC data. Current Interpretive Data was last revised on 2017. Testing performed by: [address] [address] Eosinophil pct 1.5 % [facility] Comment: Interpretive Data Percent cell count reference ranges are not reported, since discordance with absolute values may lead to misinterpretation of CBC data. Current Interpretive Data was last revised on 2017. Testing performed by: [address] [address] Basophil pct 0.3 % [facility] Comment: Interpretive Data Percent cell count reference ranges are not reported, since discordance with absolute values may lead to misinterpretation of CBC data. Current Interpretive Data was last revised on 2017. Testing performed by: [address] [address] Blood 11/01/2023 5:06 AM CDT 11/01/2023 6:08 AM CDT us Aylin Kauffman MD LAB BLOOD ORDERABLES Final Resu lt [facility] [address] [facility] Department [place] [address] * (ABNORMAL) Basic metabolic panel (11/01/2023 5:06 AM CDT) Sodium 138 135 - 145 mmol/L Comment:Testing performed by : [address] [address] Potassium, pl 4.1 3.3 - 4.9 mmol/L NILSA Comment:Testing performed by : [address] [address] Chloride 102 97 - 110 mmol/L NILSA Comment:Testing performed by : [address] [address] CO2 24 22 - 32 mmol/L NILSA Comment:Testing performed by : [address] [address] Anion gap 12 2 - 15 mmol/L NILSA Comment:Testing performed by : [address] [address] BUN 42(H) 6 - 25 mg/dL NILSA Comment:Testing performed by : [address] [address] Creatinine 4.10(H) 0.60 - 1.10 mg/dL NILSA Comment:Testing performed by : [address] [address] Glucose 177 70 - 199 mg/dL NILSA Comment: Interpretive [...] was last revised 2022. Testing performed by: [address] [address] Calcium 8.4(L) 8.5 - 10.3 mg/dL NILSA RODRIGES Comment:Testing performed by : [address] [address] Blood 11/01/2023 5:06 AM CDT 11/01/2023 6:07 AM CDT us Aylin Kauffman MD LAB BLOOD ORDERABLES Final Resu lt NILSA [facility] Department [place] [address] * (ABNORMAL) CBC with auto differential (11/01/2023 5:06 AM CDT) WBC 13.4(H) 3.8 - 9.9 K/cumm Comment:Testing performed by : [address] [address] Hgb 8.8(L) 11.9 - 15.5 g/dL NILSA RODRIGES Comment:Testing performed by : [address] [address] Hct 27.3(L) 35.6 - 45.5 % NILSA RODRIGES Comment:Testing performed by : [address] [address]16 Plt 262 150 - 400 K/cumm NILSA RODRIGES Comment:Testing performed by : [address] [address] MPV 10.8 9.1 - 12.3 fL NILSA RODRIGES Comment:Testing performed by : [address] [address] RBC 2.88(L) 3.90 - 5.20 M/cumm NILSA RODRIGES Comment:Testing performed by : [address] [address] MCV 94.8 81.3 - 96.4 fL NILSA Comment:Testing performed by : [address] [address] MCH 30.6 27.1 - 33.3 pg NILSA Comment:Testing performed by : [address] [address] MCHC 32.2(L) 32.3 - 35.7 g/dL NILSA Comment:Testing performed by : [address] [address] RDW CV 13.5 11.1 - 14.9 % NILSA Comment:Testing performed by : [address] [address] RDW SD 46.4 35.7 - 48.1 fL NILSA Comment:Testing performed by : [address] [address] NRBC abs 0.00 0.00 - 0.01 K/cumm NISLA Comment:Testing performed by : [address] [address] Blood 11/01/2023 5:06 AM CDT 11/01/2023 6:08 AM CDT us Aylin Kauffman MD LAB BLOOD ORDERABLES Final Resu lt NILSA [facility] [place] [address] * POCT glucose (10/31/2023 10:45 PM CDT) [facility] Glucose, POC 124 70 - 199 mg/dL Comment:Testing performed by : [address] [address] Blood 10/31/2023 10:4 5 PM CDT 10/31/2023 10:45 PM CDT us Charlotte Bird MD LAB POCT ORDERABLES - DEVICE Fin al Result NILSA [address] [facility] Department [place] [address] * Drugs of Abuse Screen, Urine without Confirmation (10/31/2023 10:34 PM CDT) [facility] Amphetamine, ur Not Detected CutOff 500ng/mL Comment: Interpretive Data - Amphetamines: ??Samples containing greater than 500 ng/mL d-methamphetamine ??or other cross-reacting amphetamine compounds are reported as positive. ??Amphetamine immunoassays are subject to significant false positive rates due to cross-reactivity of non-amphetamine drugs. Confirmatory testing required for definitive results. Current Interpretive Data was last reviewed 2023. Testing performed by: [address] [address] Barbiturates, ur Not Detected CutOff 200ng/mL [facility] Comment: Interpretive Data - Barbiturates: ??Samples containing greater than 200 ng/mL secobarbital or other cross-reacting barbiturate compounds are reported as positive. ??False positive and false negative results are possible. Confirmatory testing required for definitive results. Current Interpretive Data was last reviewed 2023. Testing performed by: [address] [address] Benzodiazepines, ur Not Detected CutOff 100ng/mL [facility] Comment: Interpretive Data - Benzodiazepines: ??Samples containing greater than 100 ng/mL nordiazepam or other cross-reacting compounds are reported as positive. False positive and false negative results are possible. Confirmatory testing required for definitive results. Current Interpretive Data was last reviewed 2023. Testing performed by: [address] [address] Cannabinoids, ur Not Detected CutOff 50 ng/mL [facility] Comment: Interpretive Data - Cannabinoids: ??Samples containing greater than 50 ng/mL delta-9 THC -COOH or other cross-reacting compounds are reported as positive. ??False positive and false negative results are possible. ??Confirmatory testing required for definitive results. Current Interpretive Data was last reviewed 2023. Testing performed by: [facility], [address] [place] [address]., [address] Cocaine, ur Not Detected CutOff 150ng/mL [facility] Comment: Interpretive Data - Cocaine: ??Samples containing greater than 150 ng/mL benzoylecgonine or other cross-reacting compounds are reported as positive. False positive and false negative results are possible. Confirmatory testing required for definitive results. Current Interpretive Data was last reviewed 2023. Testing performed by: [address] [address] Fentanyl, Ur Not Detected Cutoff 1 ng/mL [facility] Comment: Interpretive Data - Fentanyl: ??Samples containing greater than 1 ng/mL fentanyl or other cross-reacting fentanyl compounds are reported as positive. ??False positive and false negative results are possible. Confirmatory testing required for definitive results. Current Interpretive Data was last reviewed 2023. Testing performed by: [facility], [address] [place] [address]., [address] Methadone, ur Not Detected CutOff 300ng/mL [facility] Comment: Interpretive Data - Methadone: ??Samples containing greater than 300 ng/mL d,l-methadone or other cross-reacting compounds are reported as positive. ??False positive and false negative results are possible. Confirmatory testing required for definitive results. Current Interpretive Data was last reviewed 2023. Testing performed by: [address] [address] Opiates, ur Not Detected CutOff 300ng/mL [facility] Comment: Interpretive Data - Opiates: ??Samples containing greater than 300 ng/mL morphine or other cross-reacting compounds are reported as positive. ??False positive and false negative results are possible. Confirmatory testing required for definitive results. Current Interpretive Data was last reviewed 2023. Testing performed by: [address] [address] Oxycodone, ur Not Detected CutOff 100ng/mL [facility] Comment: Interpretive Data - Oxycodone: ??Samples containing greater than 100 ng/mL oxycodone or other cross-reacting compounds are reported as ??positive. ??False positive and false negative results are possible. Confirmatory testing required for definitive results. Current Interpretive Data was last reviewed 2023. Testing performed by: [address] [address] Phencyclidine, ur Not Detected CutOff 25 ng/mL NILSA Comment: Interpretive Data - Phencyclidine: ??Samples containing greater than 25 ng/mL phencyclidine or other cross-reacting compounds are reported as positive. ??False positive and false negative results are possible. Confirmatory testing required for definitive results. Current Interpretive Data was last reviewed 2023. Testing performed by: [address] [address] Urine Creatinine 157 mg/dL NILSA Comment: Interpretive Data Urine Creatinine: < 10 mg/dL is extremely dilute = or > 10 but < 20 mg/dL is dilute = or > 20 mg/dL is normal Current Interpretive Data was last revised on 2017. Testing performed by: [address] [address] Urine 10/31/2023 10:3 4 PM CDT 10/31/2023 10:45 PM CDT Narrative NILSA - 10/31/2023 11:17 PM CDT Drug of Abuse screening is performed by immunoassay for medical purposes only. ??This is not to be used for Pain Management purposes. Luciano Jenkins MD LAB URINE ORDERABLES Final Result [facility] [address] [facility] Department [place] [address] * POCT glucose (10/31/2023 8:37 PM CDT) [facility] Glucose, POC 74 70 - 199 mg/dL Comment:Testing performed by : [address] [address] Blood 10/31/2023 8:37 PM CDT 10/31/2023 8:37 PM CDT Charlotte Bird MD LAB POCT ORDERABLES - DEVICE Fin al Result Performing Organization Address [facility] Co de Phone Number NILSA [address] [place] [address] * POCT glucose (10/31/2023 6:06 PM CDT) Glucose, POC 119 70 - 199 mg/dL Comment:Testing performed by : [address] [address] Glucose comment 1 Use This Result NILSA Comment:Testing performed by : [address] [address] Blood 10/31/2023 6:06 PM CDT 10/31/2023 6:06 PM CDT Charlotte Bird MD LAB POCT ORDERABLES - DEVICE Fin al Result Performing Organization Address [facility] de Phone Number [address] [address] * POCT glucose (10/31/2023 7:21 AM CDT) [facility] Glucose, POC 90 70 - 199 mg/dL Comment:Testing performed by : [address] [address] Glucose comment 1 Use This Result NILSA Comment:Testing performed by : [address] [address] Blood 10/31/2023 7:21 AM CDT 10/31/2023 7:21 AM CDT Charlotte Bird MD LAB POCT ORDERABLES - DEVICE Fin al Result Performing Organization Address [facility] Co de Phone Number CARLOS ENRIQUE[address] [address] * (ABNORMAL) eGFR (10/31/2023 4:51 AM CDT) eGFR 11(L) >=60 mL/min/1. 73 m2 Comment: Interpretive Data [...] was last reviewed 2021. Testing performed by: [facility], [address] [place] [address]., [address] Blood 10/31/2023 4:51 AM CDT 10/31/2023 5:03 AM CDT us Aylin Kauffman MD LAB BLOOD ORDERABLES Final Resu lt [facility] [address] [facility] Department [place] [address] * (ABNORMAL) Differential, auto (10/31/2023 4:51 AM CDT) Pathologist [facility] Neutrophil abs 5.3 1.5 - 6.5 K/cumm Comment:Testing performed by : [address] [address] Imm gran abs 0.0 0.0 - 0.1 K/cumm NILSA Comment:Testing performed by : [address] [address] Lymphocyte abs 3.9(H) 0.8 - 3.3 K/cumm NILSA Comment:Testing performed by : [address], [place]., [address] Monocyte abs 0.6 0.2 - 0.8 K/cumm NILSA Comment:Testing performed by : [address] [address] Eosinophil abs 0.2 0.0 - 0.5 K/cumm [facility] Comment:Testing performed by : [address] [address] Basophil abs 0.0 0.0 - 0.1 K/cumm [facility] Comment:Testing performed by : [address] [address] Neutrophil pct 53.0 % [facility] Comment: Interpretive Data Percent cell count reference ranges are not reported, since discordance with absolute values may lead to misinterpretation of CBC data. Current Interpretive Data was last revised on 2017. Testing performed by: [address] [address] Imm gran pct 0.4 % [facility] Comment: Interpretive Data Percent cell count reference ranges are not reported, since discordance with absolute values may lead to misinterpretation of CBC data. Current Interpretive Data was last revised on 2017. Testing performed by: [address] [address] Lymphocyte pct 38.3 % [facility] Comment: Interpretive Data Percent cell count reference ranges are not reported, since discordance with absolute values may lead to misinterpretation of CBC data. Current Interpretive Data was last revised on 2017. Testing performed by: [address] [address] Monocyte pct 5.6 % [facility] Comment: Interpretive Data Percent cell count reference ranges are not reported, since discordance with absolute values may lead to misinterpretation of CBC data. Current Interpretive Data was last revised on 2017. Testing performed by: [address] [address] Eosinophil pct 2.4 % NILSA Comment: Interpretive Data Percent cell count reference ranges are not reported, since discordance with absolute values may lead to misinterpretation of CBC data. Current Interpretive Data was last revised on 2017. Testing performed by: [address] [address] Basophil pct 0.3 % NILSA Comment: Interpretive Data Percent cell count reference ranges are not reported, since discordance with absolute values may lead to misinterpretation of CBC data. Current Interpretive Data was last revised on 2017. Testing performed by: [address] [address] Blood 10/31/2023 4:51 AM CDT 10/31/2023 5:03 AM CDT us Aylin Kauffman MD LAB BLOOD ORDERABLES Final Resu lt NILSA [facility] Department [place] [address] * (ABNORMAL) Basic metabolic panel (10/31/2023 4:51 AM CDT) Sodium 141 135 - 145 mmol/L Comment:Testing performed by : [address] [address] Potassium, pl 4.7 3.3 - 4.9 mmol/L NILSA Comment:Testing performed by : [address] [address] Chloride 108 97 - 110 mmol/L NILSA Comment:Testing performed by : [address] [address] CO2 22 22 - 32 mmol/L NILSA Comment:Testing performed by : [address] [address] Anion gap 11 2 - 15 mmol/L NILSA Comment:Testing performed by : [address] [address] BUN 44(H) 6 - 25 mg/dL NILSA RODRIGES Comment:Testing performed by : [address] [address] Creatinine 4.00(H) 0.60 - 1.10 mg/dL NILSA RODRIGES Comment:Testing performed by : [address] [address] Glucose 97 70 - 199 mg/dL NILSA RODRIGES Comment: [...] was last revised 2022. Testing performed by: [address] [address] Calcium 8.6 8.5 - 10.3 mg/dL NILSA RODRIGES Comment:Testing performed by : [address] [address] Blood 10/31/2023 4:51 AM CDT 10/31/2023 5:03 AM CDT us Aylin Kauffman MD LAB BLOOD ORDERABLES Final Resu lt NILSA [address] [facility] Department [place] [address] * (ABNORMAL) CBC with auto differential (10/31/2023 4:51 AM CDT) Pathologist [facility] WBC 10.1(H) 3.8 - 9.9 K/cumm Comment:Testing performed by : [address] [address] Hgb 8.3(L) 11.9 - 15.5 g/dL NILSA RODRIGES Comment:Testing performed by : [address] [address] Hct 25.9(L) 35.6 - 45.5 % NILSA RODRIGES Comment:Testing performed by : [address], [address] Plt 242 150 - 400 K/cumm NILSA RODRIGES Comment:Testing performed by : [address] [address] MPV 10.4 9.1 - 12.3 fL NILSA RODRIGES Comment:Testing performed by : [address], [address] RBC 2.75(L) 3.90 - 5.20 M/cumm NILSA RODRIGES Comment:Testing performed by : [address], [address] MCV 94.2 81.3 - 96.4 fL NILSA RODRIGES Comment:Testing performed by : [address], [address] MCH 30.2 27.1 - 33.3 pg NILSA RODRIGES Comment:Testing performed by : [address], [address] MCHC 32.0(L) 32.3 - 35.7 g/dL NILSA Comment:Testing performed by : [address], [address] RDW CV 13.6 11.1 - 14.9 % NILSA Comment:Testing performed by : [address], [address] RDW SD 47.0 35.7 - 48.1 fL NILSA Comment:Testing performed by : [address], [address] NRBC abs 0.00 0.00 - 0.01 K/cumm NILSA Comment:Testing performed by : [address], [address] Blood 10/31/2023 4:51 AM CDT 10/31/2023 5:03 AM CDT us Aylin Kauffman MD LAB BLOOD ORDERABLES Final Resu lt [facility]ERN[facility] [address] [address] * POCT glucose (10/30/2023 8:29 PM CDT) Glucose, POC 176 70 - 199 mg/dL Comment:Testing performed by : [address] [address] Blood 10/30/2023 8:29 PM CDT 10/30/2023 8:29 PM CDT Aylin Kauffman MD LAB POCT ORDERABLES - DEVICE Fi nal Result Performing Organization Address [facility] de Phone Number [address] [address] * POCT glucose (10/30/2023 5:39 PM CDT) Glucose, POC 134 70 - 199 mg/dL Comment:Testing performed by : [address] [address] Glucose comment 1 Use This Result NILSA Comment:Testing performed by : [address] [address] Blood 10/30/2023 5:39 PM CDT 10/30/2023 5:39 PM CDT Aylin Kauffman MD LAB POCT ORDERABLES - DEVICE Fi nal Result Performing Organization Address [facility] Co de Phone Number [facility] [address] [address] * EEG (10/30/2023 3:55 PM CDT) Anatomical Region Laterality Modality Other Narrative 10/31/2023 1:24 PM CDT Wilner Buckley MD ? 10/31/2023 ??1:25 PM Reason for exam: ??passing out episodes Technical: This is a digitally recorded electroencephalogram. It was just over 32 minutes long. ??The international 10-20 electrode placement system is used for scalp electrode placement. Eighteen channels of scalp EEG are recorded. One channel was used for EOG. Another channel was used for ECG. The data are stored digitally and reviewed in reformatted montages for optimal display. Background: ??Background is primarily admixture of alpha and theta range frequencies seen, it is relatively symmetric bilaterally. ?? It was reactive to eye opening and closure. ??Intermittently seen delta range slowing bilaterally. Description: No focal slowing was seen. No seizure like activity was observed during this recording. Patient entered into periods of drowsiness and light sleep. Hyperventilation was performed without any additional abnormalities. Photic stimulation was performed without any additional abnormalities. ?? Impression: ??Abnormal EEG. ??Generalized slowing suggests diffuse cerebral dysfunction, as can be seen encephalopathy due to various etiologies. ??No focal slowing no seizure like activity was observed. Correlation with clinical findings is needed. us Wilner Buckley MD NEUROLOGY ORDERABLES Final Result * (ABNORMAL) POCT glucose (10/30/2023 12:56 PM CDT) Glucose, POC 213(H) 70 - 199 mg/dL Comment:Testing performed by : [address] [address] Blood 10/30/2023 12:5 6 PM CDT 10/30/2023 12:56 PM CDT Aylin Kauffman MD LAB POCT ORDERABLES - DEVICE Fi nal Result NILSA [address] [facility] Department [place] [address] * (ABNORMAL) POCT glucose (10/30/2023 11:24 AM CDT) Glucose, POC 209(H) 70 - 199 mg/dL Comment:Testing performed by : [address] [address] Glucose comment 1 Use This Result NILSA RODRIGES Comment:Testing performed by : [address] [address] Glucose comment 2 RN/MD Notified NILSA RODRIGES Comment:Testing performed by : [address] [address] Blood 10/30/2023 11:2 4 AM CDT 10/30/2023 11:24 AM CDT Aylin Kauffman MD LAB POCT ORDERABLES - DEVICE Fi nal Result [facility] [address] [facility] Department of Laboratories [place], [place] [id number] * Influenza A/B, RSV, and COVID-19 PCR Nasopharyngeal (10/30/2023 10:08 AM CDT) Pathologist [facility] COVID-19 RNA Negative Negative Comment:Testing performed by : [address] [address] Influenza A RNA Negative Negative [facility] Comment:Testing performed by : [address] [address] Influenza B RNA Negative Negative [facility] Comment:Testing performed by : [address] [address] RSV RNA Negative Negative [facility] Comment: Interpretive data: Testing performed by [facility]. This test is performed using the Infrascale Xpert Xpress CoV-2/Flu/RSV plus assay. This is a multiplex, real-time reverse transcriptase PCR assay intended for the qualitative detection of nucleic acid from SARS-CoV-2, influenza A, influenza B, and respiratory syncytial virus. This assay has been cleared by the [place] Food and Drug administration. The performance characteristics have been verified by the [facility]. ??Results must be considered in the clinical context, and a negative result does not rule out infection. Interpretive Data last revised 2023 Testing performed by: [address] [address] Nasopharyngeal 10/30/2023 10 :08 AM CDT 10/30/2023 10:20 AM CDT Narrative NILSA - 10/30/2023 10:58 AM CDT Is the Patient experiencing symptoms consistent with COVID?->Yes us Luciano Jenkins MD LAB MICROBIOLOGY - GE NERAL ORDERABLES Final Result Performing Organization Address [facility] Co de Phone Number NILSA [address] [place] [address] * POCT glucose (10/30/2023 9:39 AM CDT) Glucose, POC 143 70 - 199 mg/dL Comment:Testing performed by : [address] [address] Glucose comment 1 Use This Result NILSA RODRIGES Comment:Testing performed by : [address], [address] Glucose comment 2 RN/MD Notified NILSA Comment:Testing performed by : [address] [address] Blood 10/30/2023 9:39 AM CDT 10/30/2023 9:39 AM CDT Aylin Kauffman MD LAB POCT ORDERABLES - DEVICE Fi nal Result Performing Organization Address [facility] Co de Phone Number NILSA [address] [place] [address] * US Carotids Duplex Bilateral (10/30/2023 9:21 AM CDT) Anatomical Region Laterality Modality Vascular Bilateral Ultrasound 10/30/2023 Narrative 11/06/2023 7:37 AM CDT [employer] Job ID: [id number] [employer] Document ID: [id number] Dictated date/time: [id number] CAROTID DUPLEX REASON FOR EXAM Confusion. COMMENTS ON THE RIGHT Peak systolic velocity of CCA of 87, ICA of 76. ??Smooth heterogenous plaque seen in proximal ICA. ??ECA velocity 114. Antegrade flow noted. ?? Vertebral artery velocity 60. COMMENTS ON THE LEFT Peak systolic velocity of CCA of 100, ICA of 98. ??Smooth heterogenous plaque seen in proximal ICA. ??ECA velocity of 99. Antegrade flow noted. Vertebral artery velocity of 46. OVERALL IMPRESSION 1. Less than 50% stenosis bilateral internal carotid arteries. 2. Antegrade flow noted bilateral vertebral arteries. Job ID/Internal Job ID: ??[id number] Luciano Jenkins MD IMG US PROCEDURES Fin al Result * ECG 12 lead (10/30/2023 9:14 AM CDT) Ventricular Rate EKG/Min 72 BPM [facility] Atrial Rate 72 BPM [facility] SC-Interval (MSEC) 146 ms [facility] QRS-Interval (MSEC) 64 ms [facility] QT-Interval (MSEC) 428 ms [facility] QTc 468 ms [facility] P Spangler 80 degrees [facility] R Spangler 7 degrees [facility] T Spangler 80 degrees [facility] Diagnosis Normal sinus rhythm Normal ECG When compared with ECG of 29-OCT-2023 18:04, No significant change was found Confirmed by DON DILLON M.D. ([id number]) on 10/31/2023 7:24:36 PM [facility] 10/30/2023 9:14 AM CDT 10/31/2023 7:24 PM CDT Luciano Jenkins MD ECG ORDERABLES Final Result [facility] * MRI Brain WO Contrast (10/30/2023 8:12 AM CDT) Anatomical Region Laterality Modality Head and Neck N/A Magnetic Resonan ce 10/30/2023 8:15 AM CDT Narrative 10/30/2023 8:29 AM CDT EXAM DESCRIPTION: ?? MRI BRAIN WO CONTRAST REASON FOR STUDY: ?? TIA, initial exam, Neuro deficit, acute, stroke suspected ?? Admit with PMHx significant for HTN, ESRD on HD, HLD, mild dementia AOx 4 at baseline. Presents to the ED with a chief complaint of acute confusion ? R/o stroke ?? TECHNIQUE: Multiplanar imaging includes non-contrasted T1, T2, FLAIR, and diffusion with ADC map sequences. Additional sequence(s) sensitive to blood products. Images stored on PACS. ? COMPARISON: ?? 10/29/[address] FINDINGS: CEREBRUM: ?? No hemorrhage, edema, or mass effect. ?Unremarkable ventricles WHITE MATTER: ?? There is ??moderate ?? periventricular and pontine ?? T2/FLAIR hyperintense ??white matter disease, nonspecific, though likely secondary to chronic microvascular ischemia. ?? POSTERIOR FOSSA: ?? Brainstem and cerebellum appear unremarkable. DIFFUSION IMAGING: ?? There is a small focus of diffusion weighted hyperintensity in the posterior right temporal lobe with mild associated ADC hypointensity. ??This is compatible with an acute to subacute infarction. ?? There is mild associated FLAIR signal hyperintensity. EXTRAAXIAL SPACES: ?? No hemorrhage. ??No mass. BRAIN VOLUME: ?? Within normal limits for age. PITUITARY: ?? Unremarkable. VASCULATURE: ?? No flow disturbance identified. ORBITS: ?? No masses. Globes normal. PARANASAL SINUSES AND MASTOIDS: ?? There are bilateral mastoid effusions . ?? Mild ethmoid sinus mucosal thickening OTHER: ?? There is upper cervical degenerative disc disease. ??Spinal canal stenosis appears at least moderate at C3-C4, but is poorly assessed on the current protocol. ??This could be further assessed with cervical spine [...] 10/30/2023 8:29 AM - Electronically signed by ??James Javier M.D. MZ: VALENTINA D: ??10/30/2023 8:29 AM T: ??10/30/2023 8:29 AM Report ID: [id number] Reading Location: ??[id number] Procedure Note James Javier MD - 10/30/2023 EXAM DESCRIPTION: MRI BRAIN WO CONTRAST REASON FOR STUDY: TIA, initial exam, Neuro deficit, acute, strokesuspected Admit with PMHx significant for HTN, ESRD on HD, HLD, mild dementia AOx 4at baseline. Presents to the ED with a chief complaint of acute confusionR/o stroke TECHNIQUE: Multiplanar imaging includes non-contrasted T1, T2, FLAIR, and diffusion with ADC map sequences. Additional sequence(s) sensitive toblood products. Images stored on PACS. COMPARISON: 10/29/[address] FINDINGS: CEREBRUM: No hemorrhage, edema, or mass effect.Unremarkable ventricles WHITE MATTER: There is moderate periventricular and pontineT2/FLAIR hyperintense white matter disease, nonspecific, though likely secondaryto chronic microvascular ischemia. POSTERIOR FOSSA: Brainstem and cerebellum appear unremarkable. DIFFUSION IMAGING: There is a small focus of diffusion weighted hyperintensity in the posterior right temporal lobe with mild associatedADC hypointensity. This is compatible with an acute [...] Moderate burden of periventricular and pontine T2/FLAIR hyperintensewhite matter disease, nonspecific, though likely secondary to chronicmicrovascular ischemia. Upper cervical degenerative disc disease with at least moderate spinalcanal stenosis at C3-C4, poorly assessed on the current protocol. This could be further assessed with cervical spine MRI. Bilateral mastoid effusions THIS IS AN ELECTRONICALLY VERIFIED FINAL REPORT 10/30/2023 8:29 AM - Electronically signed by James Javier M.D. MZ: VALENTINA Report ID: [id number] Reading Location: [place] [address] us Luciano Jenkins MD IMG MRI PROCEDURES Fi nal Result * TRANSTHORACIC ECHO (TTE) COMPLETE W DOPPLER/CF WO CONTRAST (10/30/2023 8:11 AM CDT) Anatomical Region Laterality Modality Ultrasound 10/30/2023 8:11 AM CDT Narrative 10/30/2023 10:31 AM CDT ? Adult Echocardiogram + ----- + :Name: SIXTO CHAKRABORTY ? Study Date: 10/30/2023 ?Status: MHE ?: : ?Patient Location: E 5 MEDSUR^[id number]^MHeight: 62 in ?: : ?Weight: 136 lbBP: 154/62 mmHg: :: 1950 ? Gender: Female ?BSA: 1.6 m2 ?: :Reason For Study: TIA, initial exam ?: :Ordering Physician: ?: :VOLKERDING, LUCIANO ? : : ? : :Performed By: Juju ? : :Cheema, RDCS ? : + ----- + Procedure A two-dimensional transthoracic echocardiogram with color flow and Doppler was performed. A saline contrast injection was performed to assess for cardiac shunting. Left Ventricle The left ventricle is normal in size. There is mild concentric left ventricular hypertrophy. Ejection Fraction = 60-65%. Left ventricular systolic function is normal. Right Ventricle The right ventricle is normal in size and function. Atria The left atrial size is normal. Right atrial size is normal. A bubble study shows no evidence of intracardiac dkejj-cf-xrwe shunting, i.e. no patent foramen ovale (PFO). Mitral Valve There is no mitral valve stenosis. There is trace mitral regurgitation. Tricuspid Valve There is trace tricuspid regurgitation. Right ventricular systolic pressure is normal. Aortic Valve The aortic valve opens well. The aortic valve is trileaflet. No aortic stenosis . Trace aortic regurgitation. Pulmonic Valve Trace pulmonic valvular regurgitation. Great Vessels The aortic root is normal size. IVC appears normal in size. IVC collapses normally with inspiration. Normal right heart pressures. Pericardium Trace pericardial effusion. Diastology Grade I diastolic dysfunction, (abnormal relaxation pattern). Interpretation Summary The left ventricle is normal in size. There is mild concentric left ventricular hypertrophy. Ejection Fraction = 60-65%. Left ventricular systolic function is normal. Grade I diastolic dysfunction, (abnormal relaxation pattern). A bubble study shows no evidence of intracardiac qibfu-dl-xbgo shunting, i.e. no patent foramen ovale (PFO). Trace aortic regurgitation. + + :Measurements with Normals ?: : ?(0.6-1.2 ?LVIDd: ?(3.5-5.7 ?? Ao root diam: ?(2.0-3.7 ?? : :IVSd: 1.4 cmcm) ? 3.6 cm ?cm) ?2.5 cm ? cm) ?: :LVPWd: ?(0.6-1.1 ?LVIDs: ?(3.1-4.6 ?? LA dimension: ?(1.9-4.0 ?? : :1.3 cm ?cm) ? 1.7 cm ?cm) ?3.9 cm ? cm) ?: + + MMode/2D Measurements & Calculations FS: 51.7 % ?Ao root area: ? LVOT diam: 1.9 cm LVLd ap4: 8.2 cm EDV(Teich): 53.7 ml 4.9 cm2 ? LVOT area: ?EDV(MOD- sp4): ESV(Teich): 8.8 ml ?2.8 cm2 ? 52.4 ml ?LVLs ap4: 6.5 cm ?ESV(MOD-sp4): ?19.9 ml ?EF(MOD-sp4): 62.0 % ? SV(MOD-sp4): ?EF (BP): 62.2 % 32.5 ml Doppler Measurements & Calculations MV A dur: 0.12 sec ?? MV V2 max: ? MV dec time: ? Ao V2 max: MV E max leonard: ?110.0 cm/sec ? 0.24 sec ? 158.0 cm/sec 88.3 cm/sec ?MV max PG: ?Ao max PG: MV A max leonard: ?4.8 mmHg ?10.0 mmHg 101.0 cm/sec ? MV V2 mean: ? Ao V2 mean: MV E/A: 0.87 ? 66.3 cm/sec ? 111.0 cm/sec ? MV mean PG: ? Ao mean PG: ? 2.0 mmHg ?5.0 mmHg ? MV V2 VTI: 32.9 cm ?Ao V2 VTI: 36.6 cm ? MVA(VTI): 2.2 cm2 ? ALEXEY(I,D): 2.0 cm2 ? ALEXEY(V,D): 2.0 cm2 ? LV V1 max PG: ?SV(LVOT): 72.6 ml ??TV V2 max: ? PA V2 max: 5.2 mmHg ?49.0 cm/sec ?142.0 cm/sec LV V1 mean PG: ?TV max PG: ? PA max P.1 mmHg 2.0 mmHg ?0.96 mmHg LV V1 max: 114.0 cm/sec LV V1 mean: 72.5 cm/sec LV V1 VTI: 25.6 cm ? PI end-d leonard: ?RV V1 max: ? TR max leonard: ?RAP systole: 70.6 cm/sec ?117.0 cm/sec ? 169.0 cm/sec ? 3.0 mmHg ?TR max PG: ?11.4 mmHg ?RVSP(TR): 14.4 mmHg ? Pulm Sys Leonard: 70.3 cm/sec Pulm De Los Santos Leonard: 43.2 cm/sec Pulm A Revs Leonard: 32.5 cm/sec Pulm A Revs Dur: 0.10 sec Pulm S/D: 1.6 Electronically signed by: Portillo Hernandez MD 10/30/2023 10:31 AM Procedure Note Portillo Hernandez MD - 10/30/2023 Adult Echocardiogram + ----- + :Name: SIXTO CHAKRABORTY Study Date: 10/30/2023Status: MELINDA : : [facility]^[id number]^MHeight: 62 in : : : 136 lbBP: 154/62 mmHg: :: 1950 Gender: FemaleBSA: 1.6 m2 : :Reason For Study: TIA, initial exam: :Ordering Physician:: :LUCIANO JENKINS: :: :Performed By: Juju: :SHEA Cheema: + ----- + Procedure A two-dimensional transthoracic echocardiogram with color flow and Dopplerwas performed. A saline contrast injection was performed to assess forcardiac shunting. Left Ventricle The left ventricle is normal in size. There is mild concentric left ventricular hypertrophy. Ejection Fraction = 60-65%. Left ventricularsystolic function is normal. Right Ventricle The right ventricle is normal in size and function. Atria The left atrial size is normal. Right atrial size is normal. A bubblestudy shows no evidence of intracardiac hazds-gi-smri shunting, i.e. no patent foramen ovale (PFO). Mitral Valve There is no mitral valve stenosis. There is trace mitral regurgitation. Tricuspid Valve There is trace tricuspid regurgitation. Right ventricular systolicpressure is normal. Aortic Valve The aortic valve opens well. The aortic valve is trileaflet. No aortic stenosis . Trace aortic regurgitation. Pulmonic Valve Trace pulmonic valvular regurgitation. Great Vessels The aortic root is normal size. IVC appears normal in size. IVCcollapses normally with inspiration. Normal right heart pressures. Pericardium Trace pericardial effusion. Diastology Grade I diastolic dysfunction, (abnormal relaxation pattern). Interpretation Summary The left ventricle is normal in size. There is mild concentric left ventricular hypertrophy. Ejection Fraction = 60-65%. Left ventricularsystolic function is normal. Grade I diastolic dysfunction, (abnormal relaxation pattern). A bubble study shows no evidence of intracardiac twwtu-fe-tdyb shunting,i.e. no patent foramen ovale (PFO). Trace aortic regurgitation. + + :Measurements with Normals: : (0.6-1.2 LVIDd: (3.5-5.7 Ao root diam:(2.0-3.7 : :IVSd: 1.4 cmcm) 3.6 cm cm) 2.5 cm cm): :LVPWd: (0.6-1.1 LVIDs: (3.1-4.6 LA dimension:(1.9-4.0 : :1.3 cm cm) 1.7 cm cm) 3.9 cm cm): + + MMode/2D Measurements & Calculations FS: 51.7 % Ao root area: LVOT diam: 1.9 cm LVLd ap4: 8.2cm EDV(Teich): 53.7 ml 4.9 cm2 LVOT area: EDV(MOD-sp4): ESV(Teich): 8.8 ml 2.8 cm2 52.4 ml LVLs ap4: 6.5cm ESV(MOD-sp4): 19.9 ml EF(MOD-sp4):62.0 % SV(MOD-sp4): EF (BP): 62.2 % 32.5 ml Doppler Measurements & Calculations MV A dur: 0.12 sec MV V2 max: MV dec time: Ao V2 max: MV E max leonard: 110.0 cm/sec 0.24 sec 158.0 cm/sec 88.3 cm/sec MV max PG: Ao max PG: MV A max leonard: 4.8 mmHg 10.0 mmHg 101.0 cm/sec MV V2 mean: Ao V2 mean: MV E/A: 0.87 66.3 cm/sec 111.0 cm/sec MV mean PG: Ao mean P.0 mmHg 5.0 mmHg MV V2 VTI: 32.9 cm Ao V2 VTI: 36.6cm MVA(VTI): 2.2 cm2 ALEXEY(I,D): 2.0cm2 ALEXEY(V,D): 2.0cm2 LV V1 max PG: SV(LVOT): 72.6 ml TV V2 max: PA V2 max: 5.2 mmHg 49.0 cm/sec 142.0 cm/sec LV V1 mean PG: TV max PG: PA max P.1mmHg 2.0 mmHg 0.96 mmHg LV V1 max: 114.0 cm/sec LV V1 mean: 72.5 cm/sec LV V1 VTI: 25.6 cm PI end-d leonard: RV V1 max: TR max leonard: RAP systole: 70.6 cm/sec 117.0 cm/sec 169.0 cm/sec 3.0 mmHg TR max P.4 mmHg RVSP(TR): 14.4 mmHg Pulm Sys Leonard: 70.3 cm/sec Pulm De Los Santos Leonard: 43.2 cm/sec Pulm A Revs Leonard: 32.5 cm/sec Pulm A Revs Dur: 0.10 sec Pulm S/D: 1.6 Electronically signed by: Portillo Hernandez MD 10/30/2023 10:31 AM us Luciano Jenkins MD CV ECHO PROCEDURES Fi nal Result * (ABNORMAL) eGFR (10/30/2023 4:46 AM CDT) eGFR 16(L) >=60 mL/min/1. 73 [...] was last reviewed 2021. Testing performed by: [address] [address] Blood 10/30/2023 4:46 AM CDT 10/30/2023 5:27 AM CDT us Luciano Jenkins MD LAB BLOOD ORDERABLES Final Result NILSA [address] [facility] Department [place] [address] * (ABNORMAL) CBC without differential (10/30/2023 4:46 AM CDT) WBC 12.1(H) 3.8 - 9.9 K/cumm Comment:Testing performed by : [address] [address] Hgb 9.1(L) 11.9 - 15.5 g/dL NILSA Comment:Testing performed by : [address] [address] Hct 27.7(L) 35.6 - 45.5 % NILSA Comment:Testing performed by : [address] [address] Plt 268 150 - 400 K/cumm NILSA Comment:Testing performed by : [address] [address] MPV 10.8 9.1 - 12.3 fL NILSA Comment:Testing performed by : [address] [address] RBC 3.00(L) 3.90 - 5.20 M/cumm NILSA Comment:Testing performed by : [address] [address] MCV 92.3 81.3 - 96.4 fL NILSA Comment:Testing performed by : [address] [address] MCH 30.3 27.1 - 33.3 pg NILSA RODRIGES Comment:Testing performed by : [address] [address] MCHC 32.9 32.3 - 35.7 g/dL NILSA RODRIGES Comment:Testing performed by : [address], [address] RDW CV 13.7 11.1 - 14.9 % NILSA RODRIGES Comment:Testing performed by : [address], [address] RDW SD 46.4 35.7 - 48.1 fL NILSA RODRIGES Comment:Testing performed by : [address] [address] NRBC abs 0.00 0.00 - 0.01 K/cumm NILSA RODRIGES Comment:Testing performed by : [address], [address] Blood 10/30/2023 4:46 AM CDT 10/30/2023 5:26 AM CDT Luciano Jenkins MD LAB BLOOD ORDERABLES Final Result Performing Organization Address City/[facility]/ZIP Co de Phone Number [facility] [address] [place] [address] * Phosphorus (10/30/2023 4:46 AM CDT) Phosphorus, pl 4.4 2.3 - 4.5 mg/dL Comment:Testing performed by : [address], [address] Blood 10/30/2023 4:46 AM CDT 10/30/2023 5:27 AM CDT Luciano Jenkins MD LAB BLOOD ORDERABLES Final Result Performing Organization Address City/[facility]/ZIP Co de Phone Number NILSA [address] [address] * Magnesium (10/30/2023 4:46 AM CDT) Magnesium 1.7 1.4 - 2.5 mg/dL Comment:Testing performed by : [address] [address] Blood 10/30/2023 4:46 AM CDT 10/30/2023 5:27 AM CDT Luciano Jenkins MD LAB BLOOD ORDERABLES Final Result [facility] [address] [facility] Department [place] [address] * (ABNORMAL) Comprehensive metabolic panel (10/30/2023 4:46 AM CDT) Pathologist [facility] Sodium 141 135 - 145 mmol/L Comment:Testing performed by : [address] [address] Potassium, pl 4.3 3.3 - 4.9 mmol/L NILSA Comment:Testing performed by : [address] [address] Chloride 103 97 - 110 mmol/L NILSA Comment:Testing performed by : [address] [address] CO2 24 22 - 32 mmol/L NILSA Comment:Testing performed by : [address] [address] Anion gap 14 2 - 15 mmol/L NILSA Comment:Testing performed by : [address] [address] BUN 32(H) 6 - 25 mg/dL NILSA Comment:Testing performed by : [address] [address] Creatinine 3.00(H) 0.60 - 1.10 mg/dL NILSA Comment:Testing performed by : [address] [address] Glucose 175 70 - 199 mg/dL NILSA Comment: Interpretive [...] was last revised 2022. Testing performed by: [address] [address] Calcium 8.6 8.5 - 10.3 mg/dL NILSA Comment:Testing performed by : [address] [address] Bilirubin, total 0.2 0.1 - 1.2 mg/dL NILSA Comment:Testing performed by : [address] [address] Protein, pl 6.8 6.5 - 8.5 g/dL NILSA Comment:Testing performed by : [address] [address] Albumin 3.2(L) 3.5 - 5.0 g/dL NILSA Comment:Testing performed by : [address] [address] Alk phos 162(H) 40 - 130 Units/L NILSA Comment:Testing performed by : [address] [address] ALT 61(H) 7 - 45 Units/L NILSA Comment:Testing performed by : [address] [address] AST 17 10 - 45 Units/L NILSA Comment:Testing performed by : [address] [address] Blood 10/30/2023 4:46 AM CDT 10/30/2023 5:27 AM CDT us Luciano Jenkins MD LAB BLOOD ORDERABLES Final Result NILSA [address] [facility] Department [place] [address] * Lipid panel (10/30/2023 4:46 AM CDT) [facility] Cholesterol 118 30 - 199 mg/dL Comment: Interpretive Data [...] Interpretive Data was last revised on 2018. Testing performed by: [facility], [address] [place] [address]., [address] Triglycerides 104 <=149 mg/dL NILSA Comment: Interpretive Data Ages < or = [...] Interpretive Data was last revised on 2018. Testing performed by: [address] [address] HDL 47 >=40 mg/dL NILSA Comment: Interpretive Data Ages < or = [...] Interpretive Data was last revised on 2018. Testing performed by: [address] [address] LDL, calculated 50 <=129 mg/dL NILSA Comment: Interpretive Data Ages < or = 19 years ??Acceptable: ? <110 mg/dL ??Borderline high: ??110-129 mg/dL ??High: ?>or= 130 mg/dL Ages > or = 20 years ??Optimal: ? <100 mg/dL ??Near optimal: ?100-129 mg/dL ??Borderline high: ?? 130-159 mg/dL ??High: ?>160 mg/dL Literature References: 1. Expert Panel on Integrated Guidelines for Cardiovascular Health and Risk Reduction in Children and Adolescents. Pediatrics 2011;128:S213 2. NCEP Expert Panel. Circulation 2004;110:227 Current Interpretive Data was last revised on 2018. Testing performed by: [address] [address] Non-HDL Cholesterol 71 mg/dL NILSA Comment: Interpretive Data Ages < or = [...] Interpretive Data was last revised on 2018. Testing performed by: [address] [address] Chol/HDL ratio 3 NILSA Comment:Testing performed by : [address] [address] Blood 10/30/2023 4:46 AM CDT 10/30/2023 5:27 AM CDT Luciano Jenkins MD LAB BLOOD ORDERABLES Final Result NILSA [address] [facility] Department [place] [address] * (ABNORMAL) Troponin T high-sensitivity 6-hour (10/30/2023 12:15 AM CDT) Trop T hs 37(H) <=14 ng/L Comment: Ref Range High Interpretive Data For further hscTnT resources including the diagnostic algorithm and an aid in interpretation, copy and paste this link: https://nrl.testcatalog.org/show/hsTrop Current Interpretive Data last revised 2020. Testing performed by: [address] [address] Trop T hs delta -4 ng/L NILSA RODRIGES Comment:Testing performed by : [address] [address] Trop T hs interp Insignificant NILSA RODRIGES Comment:Testing performed by : [address] [address] Blood 10/30/2023 12:1 5 AM CDT 10/30/2023 12:24 AM CDT us Galdino Lindo MD LAB BLOOD ORDERABLES Blessing l Result Performing Organization Address City/[facility] Co de Phone Number [address] [address] * POCT glucose (10/29/2023 11:43 PM CDT) Pathologist [facility] Glucose, POC 162 70 - 199 mg/dL Comment:Testing performed by : [address] [address] Blood 10/29/2023 11:4 3 PM CDT 10/29/2023 11:43 PM CDT Luciano Jenkins MD LAB POCT ORDERABLES - DEVICE Final Result Performing Organization Address [facility] de Phone Number [address] [address] * (ABNORMAL) Troponin T high-sensitivity 4-hour (10/29/2023 10:24 PM CDT) [facility] Trop T hs 38(H) <=14 ng/L Comment: Ref Range High Interpretive Data For further hscTnT resources including the diagnostic algorithm and an aid in interpretation, copy and paste this link: https://nrl.testcatalog.org/show/hsTrop Current Interpretive Data last revised 2020. Testing performed by: [address] [address] Trop T hs delta -3 ng/L NILSA Comment:Testing performed by : [address] [address] Trop T hs interp Insignificant NILSA RODRIGES Comment:Testing performed by : [address] [address] Blood 10/29/2023 10:2 4 PM CDT 10/29/2023 10:34 PM CDT Galdino Lindo MD LAB BLOOD ORDERABLES Blessing l Result Performing Organization Address [facility] Co de Phone Number NILSA [address] [place] [address] * (ABNORMAL) Troponin T high-sensitivity 2-hour (10/29/2023 8:07 PM CDT) Trop T hs 39(H) <=14 ng/L Comment: Ref Range High Interpretive Data For further hscTnT resources including the diagnostic algorithm and an aid in interpretation, copy and paste this link: https://nrl.testcatalog.org/show/hsTrop Current Interpretive Data last revised 2020. Testing performed by: [address] [address] Trop T hs delta -2 ng/L NILSA Comment:Testing performed by : [address] [address] Trop T hs interp Insignificant NILSA Comment:Testing performed by : [address] [address] Blood 10/29/2023 8:07 PM CDT 10/29/2023 8:13 PM CDT Galdino Lindo MD LAB BLOOD ORDERABLES Blessing l Result Performing Organization Address [facility] Co de Phone Number NILSA [address] [place] [address] * CT Head WO Contrast (10/29/2023 7:59 PM CDT) Anatomical Region Laterality Modality Head and Neck N/A Computed Tomogra phy 10/29/2023 8:31 PM CDT Narrative 10/29/2023 8:34 PM CDT EXAM DESCRIPTION: CT HEAD WO CONTRAST REASON FOR STUDY: Mental status change, unknown cause ?? TECHNIQUE: Axial images acquired through the brain without intravenous contrast. ??Images stored on PACS. ?? Automated exposure control was used as a dose optimization technique for this examination. COMPARISON: 10/11/2023. FINDINGS: BRAIN: ?? Ventricles, cisterns and sulci are symmetric and normal in size and configuration. ??There are moderate confluent and patchy areas of hypodensity in the periventricular, subcortical and deep white matter as evidence for chronic microvascular angiopathy, similar to prior exam. ?No intracranial hemorrhage is evident. ? EXTRA-AXIAL SPACES: ?? No fluid collections. No mass effect. CALVARIUM: ?? Appears intact. ??Hyperostosis frontalis interna incidentally noted. SINUSES/MASTOIDS: ?? There is a large right mastoid effusion and small to moderate left mastoid effusion, similar to prior exam. ORBITS: ?? No significant abnormality. OTHER: ?? No other significant abnormality. IMPRESSION: No acute intracranial findings. Moderate chronic microvascular angiopathy, similar to prior exam. Large right mastoid effusion and small to moderate left mastoid effusion, similar to prior exam. THIS IS AN ELECTRONICALLY VERIFIED FINAL REPORT 10/29/2023 8:34 PM - Electronically signed by ??Larry Vail M.D., D.O. Larry Vail M.D., D.O. MW: KLEVER D: ??10/29/2023 8:34 PM T: ??10/29/2023 8:34 PM Report ID: [id number] Reading Location: ??[id number] Procedure Note Larry Vail MD - 10/29/2023 EXAM DESCRIPTION: CT HEAD WO CONTRAST REASON FOR STUDY: Mental status change, unknown cause TECHNIQUE: Axial images acquired through the brain without intravenous contrast. Images stored on PACS. Automated exposure control was used asa dose optimization technique for this examination. COMPARISON: 10/11/2023. FINDINGS: BRAIN: Ventricles, cisterns and sulci are symmetric and normalin size and configuration. There are moderate confluent and patchy areas of hypodensity in the periventricular, subcortical and deep white matter as evidence for chronic microvascular angiopathy, similar to prior exam.No intracranial hemorrhage is evident. EXTRA-AXIAL SPACES: No fluid collections. No mass effect. CALVARIUM: Appears intact. Hyperostosis frontalis interna incidentally noted. SINUSES/MASTOIDS: There is a large right mastoid effusion and small to moderate left mastoid effusion, similar to prior exam. ORBITS: No significant abnormality. OTHER: No other significant abnormality. IMPRESSION: No acute intracranial findings. Moderate chronic microvascular angiopathy, similar to prior exam. Large right mastoid effusion and small to moderate left mastoid effusion, similar to prior exam. THIS IS AN ELECTRONICALLY VERIFIED FINAL REPORT 10/29/2023 8:34 PM - Electronically signed by Larry Vail M.D., Jeff.O. Larry Vail M.D., D.O. MW: KLEVER Report ID: [id number] Reading Location: [place] [address] us Robert Betts MD IMG CT PROCEDURES Final Result * Urinalysis, microscopic only (10/29/2023 6:43 PM CDT) WBC, ur 0-5 0 - 5 /HPF Comment:Testing performed by : [address] [address] RBC, ur 0-2 0 - 2 /HPF NILSA Comment:Testing performed by : [address] [address] Culture Reflex Comment Reflex conditions for urine culture (WBC >10) not met. NILSA Comment:Testing performed by : [address] [address] Urine, clean voided 10/29/2023 6:43 PM CDT 10/29/2023 6:48 PM CDT us Galdino Lindo MD LAB URINE ORDERABLES Blessing l Result NILSA [address] [facility] Department [place] [address] * (ABNORMAL) Urinalysis reflex to microscopic and culture Urine, clean voided (10/29/2023 6:43 PM CDT) Color, ur Straw Yellow Comment:Testing performed by : [address] [address] Clarity, ur Clear Clear NILSA Comment:Testing performed by : [address] [address] Specific gravity, ur 1.011 1.003 - 1.030 NILSA Comment:Testing performed by : [address] [address] pH, urine 7.0 NILSA Comment: Interpretive Data ? Urine pH is affected by diet, medications, systemic acid-base disturbances, and renal tubular function. ??pH may affect urinary stone formation. ??For example, urine pH below 6.0 may help reduce the tendency for calcium phosphate stones and pH greater than 6.0 may reduce the tendency for uric acid stone formation. Source: [facility] [place] Current Interpretive Data was last revised on 2017 Testing performed by: [address] [address] Protein, ur ql 3+(A) Negative NILSA Comment:Testing performed by : [address] [address] Glucose, ur ql 2+(A) Negative NILSA Comment:Testing performed by : [address] [address] Ketones, ur Negative Negative NILSA Comment:Testing performed by : [address] [address] Bilirubin, ur Negative Negative NILSA Comment:Testing performed by : [address] [address] Blood, ur Trace(A) Negative NILSA Comment:Testing performed by : [address] [address] Urobilinogen, ur <2.0 <2.0 mg/dL NILSA Comment:Testing performed by : [address] [address] Nitrite, ur Negative Negative NILSA Comment:Testing performed by : [address] [address] Leukocyte esterase, ur Negative Negative NILSA Comment:Testing performed by : [address] [address] UA reflex comment Reflex to microscopic UA will be performed. NILSA Comment:Testing performed by : [facility], [address] [place] [address]., [address] Urine, clean voided 10/29/2023 6:43 PM CDT 10/29/2023 6:48 PM CDT us Robert Betts MD LAB MICROBIOLOGY - GENERAL ORDER ARIADNA Final Result Performing Organization Address [facility] de Phone Number [place] [id number] [facility] [place] [address] * (ABNORMAL) Troponin T high-sensitivity series (baseline, 2hr, 4hr, 6hr) (10/29/2023 6:26 PM CDT) Trop T hs 41(H) <=14 ng/L Comment: Interpretive Data For further hscTnT resources including the diagnostic algorithm and an aid in interpretation, copy and paste this link: https://nrl.testcatalog.org/show/hsTrop Current Interpretive Data last revised 2020. Testing performed by: [facility], [address] [place] [address]., [address] Blood 10/29/2023 6:26 PM CDT 10/29/2023 6:28 PM CDT us Galdino Lindo MD LAB BLOOD ORDERABLES Blessing l Result Performing Organization Address [facility] Co de Phone Number [address] [place] [address] * (ABNORMAL) eGFR (10/29/2023 6:26 PM CDT) eGFR 24(L) >=60 mL/min/1. 73 m2 Comment: Interpretive Data [...] was last reviewed 2021. Testing performed by: [address] [address] Blood 10/29/2023 6:26 PM CDT 10/29/2023 6:28 PM CDT us Galdino Lindo MD LAB BLOOD ORDERABLES Blessing alicea Result CARLOS [place] [address] [facility] Department [place] [address] * (ABNORMAL) Differential, auto (10/29/2023 6:26 PM CDT) Pathologist [facility] Neutrophil abs 9.7(H) 1.5 - 6.5 K/cumm Comment:Testing performed by : [address] [address] Imm gran abs 0.1 0.0 - 0.1 K/cumm NILSA RODRIGES Comment:Testing performed by : [address] [address] Lymphocyte abs 1.4 0.8 - 3.3 K/cumm NILSA Comment:Testing performed by : [address] [address] Monocyte abs 0.7 0.2 - 0.8 K/cumm NILSA Comment:Testing performed by : [address] [address] Eosinophil abs 0.0 0.0 - 0.5 K/cumm NILSA Comment:Testing performed by : [address] [address] Basophil abs 0.0 0.0 - 0.1 K/cumm [facility] Comment:Testing performed by : [address] [address] Neutrophil pct 80.9 % [facility] Comment: Interpretive Data Percent cell count reference ranges are not reported, since discordance with absolute values may lead to misinterpretation of CBC data. Current Interpretive Data was last revised on 2017. Testing performed by: [address] [address] Imm gran pct 0.4 % [facility] Comment: Interpretive Data Percent cell count reference ranges are not reported, since discordance with absolute values may lead to misinterpretation of CBC data. Current Interpretive Data was last revised on 2017. Testing performed by: [address] [address] Lymphocyte pct 12.0 % [facility] Comment: Interpretive Data Percent cell count reference ranges are not reported, since discordance with absolute values may lead to misinterpretation of CBC data. Current Interpretive Data was last revised on 2017. Testing performed by: [address] [address] Monocyte pct 6.2 % [facility] Comment: Interpretive Data Percent cell count reference ranges are not reported, since discordance with absolute values may lead to misinterpretation of CBC data. Current Interpretive Data was last revised on 2017. Testing performed by: [address] [address] Eosinophil pct 0.3 % [facility] Comment: Interpretive Data Percent cell count reference ranges are not reported, since discordance with absolute values may lead to misinterpretation of CBC data. Current Interpretive Data was last revised on 2017. Testing performed by: [address] [address] Basophil pct 0.2 % NILSA Comment: Interpretive Data Percent cell count reference ranges are not reported, since discordance with absolute values may lead to misinterpretation of CBC data. Current Interpretive Data was last revised on 2017. Testing performed by: [address] [address] Blood 10/29/2023 6:26 PM CDT 10/29/2023 6:28 PM CDT us Robert Betts MD LAB BLOOD ORDERABLES Final Resul t [facility] [address] [facility] Department [place] [address] * (ABNORMAL) Comprehensive metabolic panel (10/29/2023 6:26 PM CDT) Sodium 135 135 - 145 mmol/L Comment:Testing performed by : [address] [address] Potassium, pl 3.9 3.3 - 4.9 mmol/L NILSA Comment:Testing performed by : [address] [address] Chloride 97 97 - 110 mmol/L NILSA Comment:Testing performed by : [address] [address] CO2 25 22 - 32 mmol/L NILSA Comment:Testing performed by : [address] [address] Anion gap 13 2 - 15 mmol/L NILSA Comment:Testing performed by : [address] [address] BUN 21 6 - 25 mg/dL NILSA Comment:Testing performed by : [address] [address] Creatinine 2.10(H) 0.60 - 1.10 mg/dL NILSA Comment:Testing performed by : [address] [address] Glucose 129 70 - 199 mg/dL NILSA Comment: Interpretive [...] was last revised 2022. Testing performed by: [address] [address] Calcium 8.4(L) 8.5 - 10.3 mg/dL [facility] Comment:Testing performed by : [address] [address] Bilirubin, total 0.2 0.1 - 1.2 mg/dL [facility] Comment:Testing performed by : [address] [address] Protein, pl 7.1 6.5 - 8.5 g/dL [facility] Comment:Testing performed by : [address] [address] Albumin 3.3(L) 3.5 - 5.0 g/dL [facility] Comment:Testing performed by : [address] [address] Alk phos 160(H) 40 - 130 Units/L [facility] Comment:Testing performed by : [address] [address] ALT 75(H) 7 - 45 Units/L [facility] Comment:Testing performed by : [address] [address] AST 28 10 - 45 Units/L [facility] Comment: HEMOLYZED: Hemolysis interferes with the above test. Testing performed by: [address] [address] Blood 10/29/2023 6:26 PM CDT 10/29/2023 6:28 PM CDT us Robert Betts MD LAB BLOOD ORDERABLES Final Resul t [facility] [address] [facility] Department [place] [address] * (ABNORMAL) CBC with auto differential (10/29/2023 6:26 PM CDT) WBC 12.0(H) 3.8 - 9.9 K/cumm Comment:Testing performed by : [address] [address] Hgb 9.1(L) 11.9 - 15.5 g/dL NILSA Comment:Testing performed by : [address] [address] Hct 26.7(L) 35.6 - 45.5 % NILSA Comment:Testing performed by : [address] [address] Plt 225 150 - 400 K/cumm NILSA Comment:Testing performed by : [address] [address] MPV 9.9 9.1 - 12.3 fL NILSA Comment:Testing performed by : [address] [address] RBC 2.95(L) 3.90 - 5.20 M/cumm NILSA Comment:Testing performed by : [address] [address] MCV 90.5 81.3 - 96.4 fL NILSA Comment:Testing performed by : [address] [address] MCH 30.8 27.1 - 33.3 pg NILSA Comment:Testing performed by : [address] [address] MCHC 34.1 32.3 - 35.7 g/dL NILSA Comment:Testing performed by : [address] [address] RDW CV 13.8 11.1 - 14.9 % NILSA Comment:Testing performed by : [address] [address] RDW SD 45.3 35.7 - 48.1 fL NILSA RODRIGES Comment:Testing performed by : [facility], [address] [place] [address]., [address] NRBC abs 0.00 0.00 - 0.01 K/cumm NILSA RODRIGES Comment:Testing performed by : [facility], [address] [place] [address]., [address] Blood 10/29/2023 6:26 PM CDT 10/29/2023 6:28 PM CDT us Robert Betts MD LAB BLOOD ORDERABLES Final Resul t NILSA [address] [facility] [place] [address] * XR Chest 1 Vw Portable (10/29/2023 6:16 PM CDT) Anatomical Region Laterality Modality Body, Chest N/A Computed Radiogr aphy 10/29/2023 6:19 PM CDT Narrative 10/29/2023 6:21 PM CDT EXAM DESCRIPTION: XR CHEST 1 VIEW REASON FOR STUDY: general weakness ?? Pt brought in by EMS from dialysis for tremors. ? TECHNIQUE: Single ??radiographic view(s) of the chest. COMPARISON: 10/10/2023 FINDINGS: LUNGS: ??No focal consolidation or definite pleural effusion. ??No pneumothorax. ?? HEART/MEDIASTINUM: ??Stable cardiomediastinal contour. LINES/TUBES: ??Right IJ central venous catheter with the tip in the distal SVC. BONES: ??No acute osseous abnormality. IMPRESSION: No acute cardiopulmonary abnormality. THIS IS AN ELECTRONICALLY VERIFIED FINAL REPORT 10/29/2023 6:21 PM - Electronically signed by ??Navneet Enriquez M.D. AG: TON D: ??10/29/2023 6:21 PM T: ??10/29/2023 6:21 PM Report ID: [id number] Reading Location: ??[id number] Procedure Note Navneet Enriquez MD - 10/29/2023 EXAM DESCRIPTION: XR CHEST 1 VIEW REASON FOR STUDY: general weakness Pt brought in by EMS from dialysis for tremors. TECHNIQUE: Single radiographic view(s) of the chest. COMPARISON: 10/10/2023 FINDINGS: LUNGS: No focal consolidation or definite pleural effusion. No pneumothorax. HEART/MEDIASTINUM: Stable cardiomediastinal contour. LINES/TUBES: Right IJ central venous catheter with the tip in the distalSVC. BONES: No acute osseous abnormality. IMPRESSION: No acute cardiopulmonary abnormality. THIS IS AN ELECTRONICALLY VERIFIED FINAL REPORT 10/29/2023 6:21 PM - Electronically signed by Navneet Enriquez M.D. AG: AG Report ID: [id number] Reading Location: [place] [address] Robert Betts MD IMG XR PROCEDURES Final Result * ECG 12 lead (10/29/2023 6:04 PM CDT) Ventricular Rate EKG/Min 71 BPM [facility] Atrial Rate 71 BPM [facility] SC-Interval (MSEC) 158 ms [facility] QRS-Interval (MSEC) 66 ms [facility] QT-Interval (MSEC) 422 ms [facility] QTc 458 ms [facility] P Spangler 69 degrees [facility] R Spangler 15 degrees [facility] T Spangler 49 degrees [facility] Diagnosis Normal sinus rhythm Nonspecific T wave abnormality Abnormal ECG When compared with ECG of 30-NOV-2022 12:32, No significant change was found Confirmed by SOFIA JOSE M.D. ([id number]) on 11/02/2023 12:07:17 PM [facility] 10/29/2023 6:04 PM CDT 11/02/2023 12:07 PM CDT Robert Betts MD ECG ORDERABLES Final Result [facility] documented in this encounter Visit Diagnoses Diagnosis Altered mental status, unspecified altered mental status type- Primary Altered mental status, unspecified altered mental status type ESRD (end stage renal disease) on dialysis (HCC) [N18.6, Z99.2] End stage renal disease ESRD on hemodialysis ([facility]) ([facility]) Anemia of renal disease Anemia in chronic kidney disease ESRD (end stage renal disease) on dialysis ([facility]) End stage renal disease Anemia of renal disease Anemia in chronic kidney disease ESRD on hemodialysis ([facility]) ([facility]) Anemia, unspecified type Gastritis without bleeding, unspecified chronicity, unspecified gastritis type documented in this encounter Admitting Diagnoses Diagnosis AMS (altered mental status) documented in this encounter Administered Medications Inactive Administered Medications - up to 3 most recent administrations Medication Order MAR Action Action Date Dose Rate Site acetaminophen (TYLENOL) 32 mg/mL oral liquid 650 mg 650 mg, feeding tube, Every 4 hours PRN, 1st line for pain, fever, Starting on Kellie 10/29/23 at 2244, Administer if patient receiving meds per tube., Indications: Fever, PainIndications:Fever,Pain acetaminophen (TYLENOL) suppository 650 mg 650 mg, rectal, Every 4 hours PRN, 1st line for pain, fever, Starting on Kellie 10/29/23 at 2244, Administer if patient cannot tolerate enteral route., Indications: Fever, PainIndications:Fever,Pain acetaminophen (TYLENOL) tablet 650 mg 650 mg, oral, Every 4 hours PRN, 1st line for pain, fever, Starting on Kellie 10/29/23 at 2244, Administer if patient can swallow tablets., Indications: Fever, PainIndications:Fever,Pain aspirin enteric coated tablet 81 mg 81 mg, oral, Daily, First dose on Thu10/30/23 at 0900, Do not crush, chew, cut, dissolve, open or otherwise manipulate tablet/capsule., Indications: cerebral ischemiaIndications:cerebral ischemia Given 11/03/2023 8:23 AM CDT 81 mg Given 11/02/2023 9:47 AM CDT 81 mg Given 11/01/2023 10:14 AM CDT 81 mg atorvastatin (LIPITOR) tablet 20 mg 20 mg, oral, Nightly, First dose on Thu10/30/23 at 2100 Given 10/30/2023 8:49 PM CDT 20 mg atorvastatin (LIPITOR) tablet 40 mg 40 mg, oral, Nightly, First dose (after last modification) on Thu10/31/23 at 2100 Given 11/02/2023 9:11 PM CDT 40 mg Given 11/01/2023 9:10 PM CDT 40 mg Given 10/31/2023 10:56 PM CDT 40 mg benztropine (COGENTIN) tablet 1 mg 1 mg, oral, Nightly, First dose on Thu11/01/23 at 2100 Given 11/02/2023 9:12 PM CDT 1 mg Given 11/01/2023 9:12 PM CDT 1 mg clopidogreL (PLAVIX) tablet 75 mg 75 mg, oral, Daily, First dose on Thu10/30/23 at 1130 Given 10/30/2023 12:03 PM CDT 75 mg darbepoetin isaiah (ARANESP) 40 mcg/mL injection 40 mcg 40 mcg, intravenous, at 60 mL/hr, Administer over 1 Minutes, Weekly, First dose on Thu11/03/23 at 0900, Refrigerate, Indications: ESRD on DialysisIndications:ESRD on Dialysis Given 11/03/2023 8:22 AM CDT 40 m cg 60 mL/hr dextrose (D10W) 10% bolus 250 mL 250 mL, intravenous, at 1,000 mL/hr, Administer over 15 Minutes, Every 15 min PRN, blood glucose less than 70 mg/dL and UNABLE to swallow/take PO glucose/juice., Starting on Kellie 10/29/23 at 2246, After treatment for hypoglycemia, recheck BG followed [...] glucose less than 70 mg/dL, Starting on Kellie 10/29/23 at 2246, If patient is alert and able to [...] Call MD for each episode of hypoglycemia. MATERIALS MANAGEMENT MANAGER STATES GLUTOSE-15 CONTAINS GLUCOSE 40% W/W (50% W/V), Indications: hypoglycemic disorderIndications:hypoglycemic disorder famotidine (PEPCID) tablet 10 mg 10 mg, oral, Daily, First dose on Thu10/30/23 at 1130 Given 11/03/2023 8:23 AM CDT 10 mg Given 11/02/2023 9:47 AM CDT 10 mg Given 11/01/2023 10:14 AM CDT 10 mg fluticasone propionate (FLONASE) 50 mcg/actuation nasal spray 2 spray 2 spray, each nostril, Daily, First dose on Thu10/30/23 at 1130 Given 11/03/2023 8:23 AM CDT 2 sprays Given 11/02/2023 9:49 AM CDT 2 sprays Given 11/01/2023 9:00 AM CDT 2 sprays glucagon injection 1 mg 1 mg, intramuscular, Every 30 min PRN, low blood sugar, blood glucose less than 70 mg/dL AND no IV access AND unable to take PO glucose/juice., Starting on Thu10/29/23 at 2246, After Glucagon is administered, position patient on [...] unit/mL injection 1.5-6.9 mL 1.5-6.9 mL, intra-catheter, As needed, dialysis, Starting on Thu10/29/23 at 2338, Dialysis, Indwell volume of catheter lumens post treatment. Give volume based upon electric solderer's recommendation (usual range 1.2 - 3 mL) in each lumen., Indications: prevent clotting in catheterIndications:prevent clotting in catheter Given 11/03/2023 12:00 PM CDT 4 mL Given 10/31/2023 11:09 AM CDT 4 mL heparin 1,000 unit/mL injection 500 Units 500 Units, dialysis circuit, As needed, every hour during dialysis, Starting on Thu10/29/23 at 2339, Dialysis, Until treatment completed. Hold heparin last hour of treatment., Indications: Prevent Extracorporeal Clotting During HemodialysisIndications:Preve nt Extracorporeal Clotting During Hemodialysis heparin 5,000 unit/mL injection 5,000 Units 5,000 Units, subcutaneous, Every 8 hours scheduled, First dose on Thu10/29/23 at 2300, Indications: Deep Vein Thrombosis PreventionIndications:Deep Vein Thrombosis Prevention Given 11/03/2023 1:07 PM CDT 5,000 Units Left Lower Abdomen Given 11/03/2023 5:09 AM CDT 5,000 Units R ight Lower Abdomen Given 11/02/2023 9:12 PM CDT 5,000 Units L eft Lower Abdomen insulin glargine (LANTUS, SEMGLEE) 100 unit/mL injection 16 Units 16 Units (rounded from 16.25 Units = 0.25 Units/kg ? 65 kg), subcutaneous, Nightly, First dose on Thu10/29/23 at 2247, Do not hold if NPO. Do not mix with other insulins, Indications: Diabetes MellitusIndications:Diabetes Mellitus Given 11/02/2023 9:12 PM CDT 16 Units Left Lower Abdomen Given 11/01/2023 9:10 PM CDT 16 Units Le ft Lower Abdomen Given 10/31/2023 10:57 PM CDT 16 Units L eft Lower Abdomen insulin lispro (HumaLOG, ADMELOG) 100 unit/mL injection 0-10 Units 0-10 Units, subcutaneous, 3 times daily with meals, First dose on Thu10/30/23 at 0800, Blood glucose mg/dL: 149 or less: No insulin 150-199: add 2 unit 200-249: add 4 units 250-299: add 6 units 300-349: add 8 units and notify physician for adjustment of insulin orders. 350-399: add 10 units and notify physician for adjustment of insulin orders. Over 400: Notify physician for adjustment of insulin orders. Do NOT hold for NPO Status, Indications: Diabetes MellitusIndications:Diabetes Mellitus Given 11/01/2023 1:34 PM CDT 2 Units Left Lower Abdomen Given 10/30/2023 1:01 PM CDT 4 Units Ri ght Upper Arm insulin lispro (HumaLOG, ADMELOG) 100 unit/mL injection 0-5 Units 0-5 Units, subcutaneous, Nightly, First dose on Kellie 10/29/23 at 2247, Blood glucose mg/dL: 149 or less: No [...] NPO Status, Indications: Diabetes MellitusIndications:Diabetes Mellitus Given 11/01/2023 9:10 PM CDT 1 Units Left Upper Abdomen Given 10/30/2023 8:50 PM CDT 1 Units Le ft Lower Abdomen insulin lispro (HumaLOG, ADMELOG) 100 unit/mL injection 5 Units 5 Units (rounded from 5.395 Units = 0.083 Units/kg ? 65 kg), subcutaneous, 3 times daily with meals, First dose on Thu10/30/23 at 0800, If BG greater than or [...] 70 mg/dL., Indications: Diabetes MellitusIndications:Diabetes Mellitus Given 11/03/2023 5:54 PM CDT 5 Units Left Lower Abdomen Given 11/03/2023 1:08 PM CDT 5 Units Le ft Lower Abdomen Given 11/03/2023 9:04 AM CDT 5 Units Ri ght Upper Arm metoprolol tartrate (LOPRESSOR) immediate release split tablet 6.25 mg 6.25 mg, oral, 2 times daily, First dose on Thu10/30/23 at 1130 Given 11/03/2023 12:24 PM CDT 6.25 mg Given 11/02/2023 9:11 PM CDT 6.25 mg Given 11/02/2023 9:50 AM CDT 6.25 mg OLANZapine (ZyPREXA) tablet 2.5 mg 2.5 mg, oral, Every 8 hours PRN, agitation, Starting on 5/12/24 at 0456 risperiDONE (RisperDAL) tablet 1 mg 1 mg, oral, Nightly, First dose on 11/01/23 at 2100 Given 11/02/2023 9:12 PM CDT 1 mg Given 11/01/2023 9:10 PM CDT 1 mg documented in this encounter Discontinued Medications Medication Sig Discontinue Reason Start Date End Da te benztropine (COGENTIN) 1 mg tablet Take 1.5 tablets (1.5 mg total) by mouth nightly Stop Taking at Discharge 11/13/2022 11/03/2023 atorvastatin (LIPITOR) 20 mg tablet Take 1 tablet (20 mg total) by mouth nightly Stop Taking at Discharge 04/24/2023 11/03/2023 documented as of this encounter Active and Recently Administered Medications Times are shown in CDT. Scheduled Medication Order 11/01/2023 11/02/2023 11/03/2023 aspirin enteric coated tablet 81 mg 81 mg, oral, Daily, First dose on Thu10/30/23 at 0900, Do not crush, chew, cut, dissolve, open or otherwise manipulate tablet/capsule., Indications: cerebral ischemia 1014 (Given - Provider: Kristyn Blake RN) 0947 (Given - Provider: Kristyn Blake RN) 0823 (Given - Provider: Rosa Gonzalez, ALIREZA) atorvastatin (LIPITOR) tablet 40 mg 40 mg, oral, Nightly, First dose (after last modification) on Thu10/31/23 at 2100 2109 (Given - Provider: Masha Chilel RN) 2110 (Given - Provider: Luan Lane, ALIREZA) benztropine (COGENTIN) tablet 1 mg 1 mg, oral, Nightly, First dose on 11/01/23 at 2100 2111 (Given - Provider: Masha Chilel RN) 2111 (Given - Provider: Luan Lane, ALIREZA) darbepoetin isaiah (ARANESP) 40 mcg/mL injection 40 mcg 40 mcg, intravenous, at 60 mL/hr, Administer over 1 Minutes, Weekly, First dose on Thu11/03/23 at 0900, Refrigerate, Indications: ESRD on Dialysis 821 (Given - Provider: Rosa Gonzalez, ALIREZA) famotidine (PEPCID) tablet 10 mg 10 mg, oral, Daily, First dose on Thu10/30/23 at 1130 1014 (Given - Provider: Kristyn Blake RN) 0947 (Given - Provider: Kristyn Blake RN) 0823 (Given - Provider: Rosa Gonzalez, ALIREZA) fluticasone propionate (FLONASE) 50 mcg/actuation nasal spray 2 spray 2 spray, each nostril, Daily, First dose on Thu10/30/23 at 1130 0900 (Given - Provider: Kristyn Blake RN - Comment: forgot to scan) 0949 (Given - Provider: Kristyn Blake RN) 0823 (Given - Provider: Rosa Gonzalez RN) heparin 5,000 unit/mL injection 5,000 Units 5,000 Units, subcutaneous, Every 8 hours scheduled, First dose on Thu10/29/23 at 2300, Indications: Deep Vein Thrombosis Prevention 0528 (Given - Provider: Asmita Lucas RN)1335 (Given - Provider: Kristyn Blake RN)2109 (Given - Provider: Masha Chilel RN) 0553 (Given - Provider: Masha Chilel RN)1323 (Given - Provider: Kristyn Blake RN)2111 (Given - Provider: Luan Lane RN) 0509 (Given - Provider: Luan Lane RN)1307 (Given - Provider: Rosa Gonzalez, ALIREZA) insulin glargine (LANTUS, SEMGLEE) 100 unit/mL injection 16 Units 16 Units (rounded from 16.25 Units = 0.25 Units/kg ? 65 kg), subcutaneous, Nightly, First dose on Thu10/29/23 at 2247, Do not hold if NPO. Do not mix with other insulins, Indications: Diabetes Mellitus 2109 (Given - Provider: Masha Chilel RN) 2111 (Given - Provider: Luan Lane RN) insulin lispro (HumaLOG, ADMELOG) 100 unit/mL injection 0-10 Units 0-10 Units, subcutaneous, 3 times daily with meals, First dose on Thu10/30/23 at 0800, Blood glucose mg/dL: 149 or less: No insulin 150-199: add 2 unit 200-249: add 4 units 250-299: add 6 units 300-349: add 8 units and notify physician for adjustment of insulin orders. 350-399: add 10 units and notify physician for adjustment of insulin orders. Over 400: Notify physician for adjustment of insulin orders. Do NOT hold for NPO Status, Indications: Diabetes Mellitus 1015 (Not Given - Provider: Kristyn Blake RN - Reason: Order parameters not met - Comment: bg [phone] (Given - Provider: Kristyn Blake RN)1817 (Not Given - Provider: Kristyn Blake RN - Reason: Other - Comment: patient is already eating.) 0948 (Not Given - Provider: Kristyn Blake RN - Reason: Order parameters not met - Comment: [phone] (Not Given - Provider: Kristyn Blake RN - Reason: Other - Comment: patient is eating)1714 (Not Given - Provider: Kristyn Blake RN - Reason: Order parameters not met - Comment: bg) 0904 (Not Given - Provider: Rosa Gonzalez RN - Reason: Order parameters not met)1223 (Not Given - Provider: Rosa Gonzalez RN - Reason: Order parameters not met)1755 (Not Given - Provider: Rosa Gonzalez RN - Reason: Order parameters not met) insulin lispro (HumaLOG, ADMELOG) 100 unit/mL injection 0-5 Units 0-5 Units, subcutaneous, Nightly, First dose on Thu10/29/23 at 2247, Blood glucose mg/dL: 149 or less: No insulin 150-199: add 1 unit 200-249: add 2 units 250-299: add 3 units 300-349: add 4 units and notify physician for adjustment of insulin orders. 350-399: add 5 units and notify physician for adjustment of insulin orders. Over 400: Notify physician for adjustment of insulin orders. Do NOT hold for NPO Status, Indications: Diabetes Mellitus 2109 (Given - Provider: Masha Chilel RN) 2111 (Not Given - Provider: Luan Lane, ALIREZA - Reason: Order parameters not met) insulin lispro (HumaLOG, ADMELOG) 100 unit/mL injection 5 Units 5 Units (rounded from 5.395 Units = 0.083 Units/kg ? 65 kg), subcutaneous, 3 times daily with meals, First dose on Thu10/30/23 at 0800, If BG greater than or [...] less than 70 mg/dL., Indications: Diabetes Mellitus 0930 (Given - Provider: Kristyn Blake RN)1335 (Given - Provider: Kristyn Blake RN)1820 (Given - Provider: Kristyn Blake RN) 0948 (Given - Provider: Kristyn Blake RN)1322 (Given - Provider: Kristyn Blake RN)1726 (Given - Provider: Kristyn Blake RN) 0904 (Given - Provider: Rosa Gonzalez, ALIREZA)1308 (Given - Provider: Rosa Gonzalez, ALIREZA)1754 (Given - Provider: Rosa Gonzalez, ALIREZA) metoprolol tartrate (LOPRESSOR) immediate release split tablet 6.25 mg 6.25 mg, oral, 2 times daily, First dose on Thu10/30/23 at 1130 0900 (Given - Provider: Kristyn Blake RN)2109 (Given - Provider: Masha Chilel RN) 0950 (Given - Provider: Kristyn Blake RN)2110 (Given - Provider: Luan Lane RN) 1224 (Given - Provider: Rosa Gonzalez RN) risperiDONE (RisperDAL) tablet 1 mg 1 mg, oral, Nightly, First dose on Thu11/01/23 at 2100 2110 (Given - Provider: Masha Chilel, ALIREZA) 2111 (Given - Provider: Luan Lane RN) PRN Medication Order 11/01/2023 11/02/2023 11/03/2023 acetaminophen (TYLENOL) 32 mg/mL oral liquid 650 mg(Linked Group 1) 650 mg, feeding tube, Every 4 hours PRN, 1st line for pain, fever, Starting on Kellie 10/29/23 at 2244, Administer if patient receiving meds per tube., Indications: Fever, Pain acetaminophen (TYLENOL) suppository 650 mg(Linked Group 1) 650 mg, rectal, Every 4 hours PRN, 1st line for pain, fever, Starting on Kellie 10/29/23 at 2244, Administer if patient cannot tolerate enteral route., Indications: Fever, Pain acetaminophen (TYLENOL) tablet 650 mg(Linked Group 1) 650 mg, oral, Every 4 hours PRN, 1st line for pain, fever, Starting on Kellie 10/29/23 at 2244, Administer if patient can swallow tablets., Indications: Fever, Pain benzonatate (TESSALON) capsule 100 mg 100 mg, oral, 3 times daily PRN, cough, Starting on Kellie 10/29/23 at 2244, Do not crush, chew, cut, dissolve, open or otherwise manipulate tablet/capsule., Indications: Cough dextrose (D10W) 10% bolus 250 mL(Linked Group 2) 250 mL, intravenous, at 1,000 mL/hr, Administer over 15 Minutes, Every 15 min PRN, blood glucose less than 70 mg/dL and UNABLE to swallow/take PO glucose/juice., Starting on Kellie 10/29/23 at 2246, After treatment for hypoglycemia, recheck BG followed [...] glucose less than 70 mg/dL, Starting on Kellie 10/29/23 at 2246, If patient is alert and able to [...] Call MD for each episode of hypoglycemia. MATERIALS MANAGEMENT MANAGER STATES GLUTOSE-15 CONTAINS GLUCOSE 40% W/W (50% W/V), Indications: hypoglycemic disorder glucagon injection 1 mg 1 mg, intramuscular, Every 30 min PRN, low blood sugar, blood glucose less than 70 mg/dL AND no IV access AND unable to take PO glucose/juice., Starting on Kellie 10/29/23 at 2246, After Glucagon is administered, position patient on [...] following reconstitution. heparin 1,000 unit/mL injection 1.5-6.9 mL(Linked Group 3) 1.5-6.9 mL, intra-catheter, As needed, dialysis, Starting on Kellie 10/29/23 at 2338, Dialysis, [place] volume of catheter lumens post treatment. Give volume based upon electric solderer's recommendation (usual range 1.2 - 3 mL) in each lumen., Indications: prevent clotting in catheter 1200 (Given - Provid er: Adriel Fang - Comment: given on dialysis) heparin 1,000 unit/mL injection 500 Units 500 Units, dialysis circuit, As needed, every hour during dialysis, Starting on Kellie 10/29/23 at 2339, Dialysis, Until treatment completed. Hold heparin last hour of treatment., Indications: Prevent Extracorporeal Clotting During Hemodialysis OLANZapine (ZyPREXA) tablet 2.5 mg 2.5 mg, oral, Every 8 hours PRN, agitation, Starting on [place] 11/01/23 at 0456 polyethylene glycol (MIRALAX) packet 17 g 17 g, oral, Daily PRN, constipation, Starting on Kellie 10/29/23 at 2244, Indications: constipation ramelteon (ROZEREM) tablet 8 mg 8 mg, oral, Nightly PRN, sleep, Starting on Thu10/30/23 at 1052, Indications: Sleep-Onset Insomnia Linked Groups Order Group 1: acetaminophen (TYLENOL) tablet 650 mgJump to med 650 mg, oral, Every 4 hours PRN, 1st line for pain, fever, Starting on Kellie 10/29/23 at 2244, Administer if patient can swallow tablets., Indications: Fever, Pain Or acetaminophen (TYLENOL) 32 mg/mL oral liquid 650 mgJump to med 650 mg, feeding tube, Every 4 hours PRN, 1st line for pain, fever, Starting on Kellie 10/29/23 at 2244, Administer if patient receiving meds per tube., Indications: Fever, Pain Or acetaminophen (TYLENOL) suppository 650 mgJump to med 650 mg, rectal, Every 4 hours PRN, 1st line for pain, fever, Starting on Thu10/29/23 at 2244, Administer if patient cannot tolerate enteral route., Indications: Fever, Pain Group 2: dextrose (GLUTOSE) 40 % gel 15 gJump to med 15 g, oral, Every 15 min PRN, low blood sugar, blood glucose less than 70 mg/dL, Starting on Thu10/29/23 at 2246, If patient is alert and able to [...] Call MD for each episode of hypoglycemia. MATERIALS MANAGEMENT MANAGER STATES GLUTOSE-15 CONTAINS GLUCOSE 40% W/W (50% W/V), Indications: hypoglycemic disorder Or dextrose (D10W) 10% bolus 250 mLJump to med 250 mL, intravenous, at 1,000 mL/hr, Administer over 15 Minutes, Every 15 min PRN, blood glucose less than 70 mg/dL and UNABLE to swallow/take PO glucose/juice., Starting on Kellie 10/29/23 at 2246, After treatment for hypoglycemia, recheck BG followed by treatment every 15 minutes until the BG is greater than 100 mg/dL. Then check BG 1 hour post treatment. If BG is less than 100 mg/dL, repeat Q15 minute BG checks and treatment. Call MD for each episode of hypoglycemia., Indications: hypoglycemic disorder Group 3: Dialysis Access Care (CANCELED) Routine, Once (Routine), On Kellie 10/29/23 at 2339, For 1 occurrence, Catheter access to use for this treatment: Tunneled Dialysis Catheter, Dialysis And heparin 1,000 unit/mL injection 1.5-6.9 mLJump to med 1.5-6.9 mL, intra-catheter, As needed, dialysis, Starting on Kellie 10/29/23 at 2338, Dialysis, [place] volume of catheter lumens post treatment. Give volume based upon electric solderer's recommendation (usual range 1.2 - 3 mL) in each lumen., Indications: prevent clotting in catheter documented in this encounter Orders Medications Ordered That Flip ht Not Have Been Administered Count Last Ordered Date First Ordered Date OLANZapine (ZyPREXA) tablet 2.5 mg 1 2023 heparin 1,000 unit/mL injection 1.5-6.9 mL 2 10/31/2023 10/29/2023 heparin 1,000 unit/mL injection 500 Units 3 10/31/2023 10/29/2023 sodium chloride 0.9% bolus 200 mL 1 024 ramelteon (ROZEREM) tablet 8 mg 1 4 acetaminophen (TYLENOL) 32 m g/mL oral liquid 650 mg 1 10/29/2023 acetaminophen (TYLENOL) suppository 650 mg 1 10/29/2023 acetaminophen (TYLENOL) tablet 650 mg 1 02/2024 albumin 25 % bottle 25 g 1 10/29/2023 benzonatate (TESSALON) capsule 100 mg 1 02/2024 dextrose (D10W) 10% bolus 250 mL 10/29/19 dextrose (GLUTOSE) 40 % gel 15 g 1 10/29/19 24 glucagon injection 1 mg 1 10/29/2023 heparin 1,000 unit/mL inject ion 1,500 Units 1 10/29/2023 polyethylene glycol (MIRALAX) packet 17 g 1 10/29/2023 Lab Orders Without Results Count Last Ordered D ate First Ordered Date POCT GLUCOSE DEVICE 13 11/03/2023 10/30/19 24 Diet Count Last Ordered Date First Orde red Date ADULT DISCHARGE DIET 1 11/03/2023 Nursing Count Last Ordered Date First Orde red Date DISCHARGE ACTIVITY 1 11/03/2023 FOLLOW UP WITH ESTABLISHED PROVIDER 1 11/02 TELEMETRY MONITORING 5 11/02/2023 024 ACTIVITY 1 10/29/2023 CONTINUOUS PULSE OXIMETRY 1 10/29/2023 NIH STROKE SCALE 1 10/29/2023 NOTIFY PROVIDER (SPECIFY) 4 10/29/2023 NURSING SWALLOW ASSESSMENT 1 10/29/[address] SEQUENTIAL COMPRESSION DEVICE 1 10/28 WEIGH PATIENT 1 10/29/2023 Consult Count Last Ordered Date First Orde red Date IP CONSULT TO NUTRITION SERVICES 2 11/02/19 24 10/29/2023 CONSULT TO BEHAVIORAL HEALTH [facility] 1 024 IP CONSULT TO PSYCHIATRY 1 10/31/2023 IP CONSULT TO NEPHROLOGY 1 10/30/2023 IP CONSULT TO NEUROLOGY 1 10/30/2023 Isolation Count Last Ordered Date First Orde red Date INITIATE DROPLET ISOLATION 1 10/29/2023 Dialysis Count Last Ordered Date First Orde red Date HEMODIALYSIS/DUF 2 11/03/2023 10/31/2023 Admission Count Last Ordered Date First Orde red Date ADMIT TO INPATIENT 1 10/30/2023 INITIATE OBSERVATION SERVICES 1 10/29/2023 Transfer Count Last Ordered Date First Orde red Date ED TO FLOOR BED REQUEST 1 10/29/2023 Discharge Count Last Ordered Date First Orde red Date DISCHARGE PATIENT 1 11/03/2023 CORE MEASURES Count Last Ordered Date First Ord ered Date REASON FOR NOT INITIATING IV THROMBOLYTIC 1 10/29/2023 documented in this encounter Additional Health Concerns Infection Onset Date Last Indicated Resolved Time COVID: Suspected 10/29/2023 10/30/2023 10/30/2023 10:59 AM CDT documented as of this encounter Care Teams Cover Operator Relationship Specialty Start Date End Date Duane Corcoran MD PCP - General Family Medicine 08/30/19 Mark Queen MD Consulting Physician Infectious Diseases 01/10/20 Rudolph Welch MD [address] [facility] [address] [place] [address] Consulting Physician Infectious Diseases 12/05/22 Markie Ryan MD [address] [facility] [address] [place] [address] Consulting Physician Nephrology 12/05/22 Dulce Vega, ALIREZA [address] [place] [address] [address] [place] [address] Sales Solutions Representative 10/07/23 05/03/24 [place] [address] [facility] [address] [place] [address] Consulting Physician Nephrology 10/22/23 documented as of this encounter
--- OUTSIDE RECORDS SUMMARY | 2024-07-04 04:06 | XMS_ITS | Encounter Summary ---
Author Organization [facility] Healthcare Address [address] [place] [address] Care Team Providers Care Safety Representative Name Role Phone Cherelle Corcoran MD Primary Care Pro vider Mark Queen MD Unavailable [phone] Rudolph Welch MD Unavailable [phone] Markie Ryan MD Unavailable Dulce Vega RN Unavailable [phone] Jimbo Strauss MD Unavailable [phone] Encounter Details Date Type Department Care Team (Late st Contact Info) Description 10/23/[address] [facility] Primary Care at [address] [address] Cherelle Corcoran MD [address] [place] [id number] Social History Tobacco Use Types Packs/Day Years Used Date Smoking Tobacco: Never Smokeless Tobacco: Never Alcohol Use Standard Drinks/Week Comments Not Currently 0 (1 standard drink = 0.6 oz pur e alcohol) [facility] Utilities Answer Date Recorded In the past 12 months has th e electric, gas, oil, or water [employer] threatened to shut off services in your [...] you attend chur ch or hinduism services? 1 to 4 times per year 10/08/2023 Do you belong to any clubs o r organizations such as presybeterian groups, unions, fraternal or athletic groups, or [...] in a long term (including now)? No 10/08/2023 Personal Safety Answer Date Recorded Have you ever been in or are you currently in a harmful physical or emotional relationship or is someone making you feel afraid or unsafe? Denies 10/07/2023 Comments No Sex and Gender Information Value Date Recorded Sex Assigned at Not on file Legal Sex Female 9:03 AM TELEPHONE CLERKS SUPERVISOR Gender Identity Female 02/08/2020 6:39 PM CDT Sexual Orientation Not on file documented as of this encounter Miscellaneous Notes * Telephone Encounter - Indira Gomes - 10/23/2023 8:14 AM CDT LMTC and set up a JOY for patient. LM with daughter phone, Areli. documented in this encounter Plan of Treatment Upcoming Encounters Date Type Department Care Team (Latest Contact Info) Description 07/13/2024 9:00 AM TELEPHONE CLERKS SUPERVISOR Hospital Encounter [facility] [address] [place] [address] Jaya Grier MD [address] [facility] [address] [place] [address] 07/13/2024 9:00 AM TELEPHONE CLERKS SUPERVISOR - 07/13/2024 9:30 AM TELEPHONE CLERKS SUPERVISOR Surgery [facility] [address] [place] [address] Jaya Grier MD [address] [facility] [address] [place] [address] ESOPHAGOGASTRODUODENOSCOPY Scheduled Procedures Name Priority Associated Diagnoses Date/Ti al ESOPHAGOGASTRODUODENOSCOPY Anemia, unspecified type Gastritis without bleeding, unspecified chronicity, unspecified gastritis type 07/13/2024 9:00 AM TELEPHONE CLERKS SUPERVISOR COLONOSCOPY Iron deficiency anemia due to chronic blood loss documented as of this encounter Visit Diagnoses Not on filedocumented in this encounter Care Teams Safety Representative Relationship Specialty Start Date End Date Cherelle Corcoran MD PCP - General Family Medicine 08/30/19 Mark Queen MD Consulting Physician Infectious Diseases 01/10/20 Rudolph Welch MD [address] [facility] [address] [place] [address] Consulting Physician Infectious Diseases 12/05/22 Markie Ryan MD [address] [facility] [address] [place] [address] Consulting Physician Nephrology 12/05/22 Dulce Vega, ALIREZA [address] [place] [address] [address] [place] [address] Scoop Machine Operator 10/07/23 05/03/24 [place] [address] [facility] [address] [place] [address] Consulting Physician Nephrology 10/22/23 documented as of this encounter
--- OUTSIDE RECORDS SUMMARY | 2024-07-04 04:07 | XMS_ITS | Encounter Summary ---
Author Organization [facility] Healthcare Address [address] [place] [address] Care Team Providers Care Bioinformatics Computer Scientist Name Role Phone Cherelle Corcoran MD Primary Care Pro vider Mark Queen MD Unavailable [phone] Rudolph Welch MD Unavailable [phone] Markie Ryan MD Unavailable [phone] Encounter Details Date Type Department Care Team (Late st Contact Info) Description 06/17/2023 Telephone [facility] Gastroenterology at [address] [place] [address] Markie Ryan MD [address] [place] [address] [address] [place] [address] Social History Tobacco Use Types Packs/Day Years Used Date Smoking Tobacco: Never Smokeless Tobacco: Never Alcohol Use Standard Drinks/Week Comments Not Currently 0 (1 standard drink = 0.6 oz pur e alcohol) Social Connection and Isolation Panel [NHANES] A nswer Date Recorded In a typical week, how many times do you talk on the phone with family, friends, or neighbors? Three times a week 01/21/20 How often do you get togethe r with friends or relatives? Three times a week 01/20/2023 How often do you attend chur ch or scientologist services? 1 to 4 times per year 01/20/2023 Do you belong to any clubs o r organizations such as restorationism groups, unions, fraternal or athletic groups, or school groups? No 01/20/2023 How often do you attend meet ings of the clubs or organizations you belong to? Never 01/20/2023 Are you , , di vorced, , never , or living with a partner? 01/20/2023 AUDIT-C Answer Date Recorded Q1: How often do you have a drink containing alcohol? Never 12/06/2022 Q2: How many drinks containi ng alcohol do you have on a typical day when you are drinking? Patient does not drink Q3: How often do you have si x or more drinks on one occasion? Never 12/06/2022 Overall Financial Resource Strain (CARDIA) Answe r Date Recorded How hard is it for you to pa y for the very basics like food, housing, medical care, and heating? Not very hard 01/20/2023 PHQ-2 Answer Date Recorded PHQ-2 Total Score (If total score is 3 or more points, staff should administer the PHQ-9) 0 06/09/2022 Hunger Vital Sign Answer Date Recorded Within the past 12 months, y ou worried that your food would run out before you got the money to buy more. Never true 12/24/19 23 Within the past 12 months, t he food you bought just didn't last and you didn't have money to get more. Never true 12/23/2022 PRAPARE - Transportation Answer Date Re corded In the past 12 months, has l ack of transportation kept you from medical appointments or from getting medications? No 06/2022 In the past 12 months, has l ack of transportation kept you from meetings, work, or from getting things needed for daily living? No 01/20/2023 Housing Stability Vital Sign Answer Fuentes e Recorded In the last 12 months, was t here a time when you were not able to pay the mortgage or rent on time? No 01/20/2023 In the last 12 months, how many places have you lived? 1 01/20/2023 In the last 12 months, was t here a time when you did not have a steady place to sleep or slept in a detention (including now)? No 01/20/2023 Personal Safety Answer Date Recorded Getting School Help Needed Denies 06/07 Comments No Sex and Gender Information Value Date Recorded Sex Assigned at Not on file Legal Sex Female 9:03 AM LANDSCAPING SPECIALIST Gender Identity Female 02/08/2020 6:39 PM CDT Sexual Orientation Not on file documented as of this encounter Miscellaneous Notes * Telephone Encounter - Melania Sanders - 06/17/2023 12:46 PM CST Error- didn't need to send SCAPING SPECIALIST documented in this encounter Plan of Treatment Upcoming Encounters Date Type Department Care Team (Latest Contact Info) Description 07/13/2024 9:00 AM LANDSCAPING SPECIALIST Hospital Encounter [facility] [address] [place] [address] Jaya Grier MD [address] [place] [address] [address] [place] [address] 07/13/2024 9:00 AM LANDSCAPING SPECIALIST - 07/13/2024 9:30 AM LANDSCAPING SPECIALIST Surgery [facility] [address] [place] [address] Jaya Grier MD [facility] [facility] [address] [place] [address] ESOPHAGOGASTRODUODENOSCOPY Scheduled Procedures Name Priority Associated Diagnoses Date/Ti me ESOPHAGOGASTRODUODENOSCOPY Anemia, unspecified type Gastritis without bleeding, unspecified chronicity, unspecified gastritis type 07/13/2024 9:00 AM LANDSCAPING SPECIALIST COLONOSCOPY Iron deficiency anemia due to chronic blood loss documented as of this encounter Visit Diagnoses Not on filedocumented in this encounter Care Teams Bioinformatics Computer Scientist Relationship Specialty Start Date End Date Cherelle Corcoran MD PCP - General Family Medicine 08/30/19 Mark Queen MD Consulting Physician Infectious Diseases 01/10/20 Rudolph Welch MD [address] [facility] [address] [place] [address] Consulting Physician Infectious Diseases 12/05/22 Markie Ryan MD [address] [facility] [address] [place] [address] Consulting Physician Nephrology 12/05/22 documented as of this encounter
--- OUTSIDE RECORDS SUMMARY | 2024-07-04 04:07 | XMS_ITS | Encounter Summary ---
Author Organization [facility] Address [address] [place] [address] Phone Care Team Providers Care Vp Global Marketing [employer] Name Role Phone Cherelle Corcoran MD Primary Care Pro vider Mark Queen MD Unavailable [phone] Rudolph Welch MD Unavailable [phone] Markie Ryan MD Unavailable [phone] Encounter Details Date Type Department Care Team (Late st Contact Info) Description 03/24/2023 Orders Only [facility] Endocrinology Metabolism and Lipid [address] [facility] Medical Office Building [address], [address] [place] [address] Radha Franco, JARAD [address] [address] Type 2 diabetes mellitus with diabetic neuropathy, with long-term current use of insulin (CMS/HCC) ([facility]) Social History Tobacco Use Types [...] you attend chur ch or congregational services? 1 to 4 times per year [...] slept in a mcfp (including now)? No 01/20/2023 Comments No Sex and Gender Information Value Date Recorded Sex Assigned at Not on file Legal Sex Female 9:03 AM MILL OPERATOR HEAD Gender Identity Female 02/08/2020 6:39 PM CDT Sexual Orientation Not on file documented as of this encounter Ordered Prescriptions Prescription Sig Dispense Quantity Refills Last Filled Start Date End Date insulin glargine 100 unit/mL (3 mL) pen for injectionIndicatio ns:Type 2 diabetes mellitus with diabetic neuropathy, with long-term current use of insulin ([facility]) Inject 15 Units under the skin nightly 4.5 mL 1 03/24/2023 3 documented in this encounter Plan of Treatment Upcoming Encounters Date Type Department Care Team (Latest Contact Info) Description 07/13/2024 9:00 AM MILL OPERATOR HEAD Hospital Encounter [facility] [address] [place] [address] Jaya Grier MD [facility] [address] [place] [address] 07/13/2024 9:00 AM MILL OPERATOR HEAD - 07/13/2024 9:30 AM MILL OPERATOR HEAD Surgery [facility] [address] [place] [address] Jaya Grier MD [address] [facility] [address] [place] [address] ESOPHAGOGASTRODUODENOSCOPY Scheduled Procedures Name Priority Associated Diagnoses Date/Ti me ESOPHAGOGASTRODUODENOSCOPY Anemia, unspecified type Gastritis without bleeding, unspecified chronicity, unspecified gastritis type 07/13/2024 9:00 AM MILL OPERATOR HEAD COLONOSCOPY Iron deficiency anemia due to chronic blood loss documented as of this encounter Visit Diagnoses Diagnosis Type 2 diabetes mellitus with diabetic neuropathy, with long-term current use of insulin (HCC) Anemia, unspecified type Gastritis without bleeding, unspecified chronicity, unspecified gastritis type documented in this encounter Discontinued Medications Medication Sig Discontinue Reason Start Date End Da te insulin glargine 100 unit/mL (3 mL) pen for injectionIndications: Type 2 diabetes mellitus with diabetic neuropathy, with long-term current use of insulin (HCC) Inject 15 Units under the skin nightly To start once blood sugars are consistently above 200 Reorder 03/24/2023 03/24/2023 documented as of this encounter Additional Health Concerns Infection Onset Date Last Indicated Resolved Time MRSA Comment:Toe 11/08/22, 12/12/22 11/08/2022 12/12/2022 06/10/2023 3:05 AM MILL OPERATOR HEAD documented as of this encounter Care Teams Vp Global Marketing [employer] Relationship Specialty Start Date End Date Cherelle Corcoran MD PCP - General Family Medicine 08/30/19 Mark Queen MD Consulting Physician Infectious Diseases 01/10/20 Rudolph Welch MD [address] [facility] [address] [place] [address] Consulting Physician Infectious Diseases 12/05/22 Markie Ryan MD [address] [facility] [address] [place] [address] Consulting Physician Nephrology 12/05/22 documented as of this encounter
--- OUTSIDE RECORDS SUMMARY | 2024-07-04 04:07 | XMS_ITS | Encounter Summary ---
Author Organization [facility] Address [address] [place] [address] Phone Care Team Providers Care Earring Maker Name Role Phone Cherelle Corcoran MD Primary Care Pro vider Mark Queen MD Unavailable [phone] Rudolph Welch MD Unavailable Markie Ryan MD Unavailable [phone] Dulce Vega RN Unavailable Encounter Details Date Type Department Care Team (Late st Contact Info) Description 10/10/2023 Documentation [facility] Endocrinology Metabolism and Lipid [address] [facility] Advanced Medicine 5th [place] [address] [place] [address] Yoly Herrera RN Social History Tobacco Use Types Packs/Day Years Used Date Smoking Tobacco: Never Smokeless Tobacco: Never Alcohol Use Standard Drinks/Week Comments Not Currently 0 (1 standard drink = 0.6 oz pur e alcohol) [facility] Utilities Answer Date Recorded In the [...] you attend chur ch or advent services? 1 to 4 times per year [...] slept in a assisted (including now)? No 10/08/2023 Personal Safety Answer Date Recorded Have you ever been in or are you currently in a harmful physical or emotional relationship or is someone making you feel afraid or unsafe? Denies 10/07/2023 Comments No Sex and Gender Information Value Date Recorded Sex Assigned at Not on file Legal Sex Female 9:03 AM RECREATION COUNSELOR Gender Identity Female 02/08/2020 6:39 PM CDT Sexual Orientation Not on file documented as of this encounter Progress Notes * Yoly Herrera RN - 10/10/2023 8:48 PM CDT Images from the original note were not included. Specialty Medical Equipment keeps requesting information First form and chart notes from Jun 2023 visit were faxed on 09/29/[address] Sheridan's name was faxed on 10/06/2023 Chart notes from Jun 2023 visit faxed again on 10/10/2023 documented in this encounter Plan of Treatment Upcoming Encounters Date Type Department Care Team (Latest Contact Info) Description 07/13/2024 9:00 AM RECREATION COUNSELOR Hospital Encounter [facility] GI Lab [address] [place] [address] Jaya Grier MD [facility] [address] [place] [address] 07/13/2024 9:00 AM RECREATION COUNSELOR - 07/13/2024 9:30 AM RECREATION COUNSELOR Surgery [facility] [address] [place] [address] Jaya Grier MD [address] [facility] [address] [place] [address] ESOPHAGOGASTRODUODENOSCOPY Scheduled Procedures Name Priority Associated Diagnoses Date/Ti ut ESOPHAGOGASTRODUODENOSCOPY Anemia, unspecified type Gastritis without bleeding, unspecified chronicity, unspecified gastritis type 07/13/2024 9:00 AM RECREATION COUNSELOR COLONOSCOPY Iron deficiency anemia due to chronic blood loss documented as of this encounter Visit Diagnoses Not on filedocumented in this encounter Care Teams Earring Maker Relationship Specialty Start Date End Date Cherelle Corcoran MD PCP - General Family Medicine 08/30/19 Mark Queen MD Consulting Physician Infectious Diseases 01/10/20 Rudolph Welch MD [address] [facility] [address] [place] [address] Consulting Physician Infectious Diseases 12/05/22 Markie Ryan MD [address] [facility] [address] [place] [address] Consulting Physician Nephrology 12/05/22 Dulce Vega RN [address] [place] [address] [address] [place] [address] Mill Roll Rewinder 10/07/23 05/03/24 documented as of this encounter
--- OUTSIDE RECORDS SUMMARY | 2024-07-04 04:07 | XMS_ITS | Encounter Summary ---
Author Organization [facility] Address [address] [place] [address] Phone Care Team Providers Care Cardiac Specialist Name Role Phone Cherelle Corcoran MD Primary Care Pro vider Mark Queen MD Unavailable [phone]- [phone] Rudolph Welch MD Unavailable [phone] Markie Ryan MD Unavailable [phone] Reason for Visit * Reason Comments Ear Problem Ear pain x 1.5 month s Hearing Loss * Consultation (Routine) - Closed Specialty Diagnoses / Procedures Referred By Contac t Referred To Contact Otolaryngology Diagnoses Hearing loss, unspecified hearing loss type, unspecified laterality Cherelle Corcoran MD [address] [place] [address] Phone: tel: fax: Rodrigo Doshi MD [address] [place] [address] Phone: tel: fax: Referral ID Status Reason Start Date Expiration Date V isits Requested Visits Authorized [id number] Closed Specialty Services Required 08/03/2023 09/01/2024 1 1 Encounter Details Date Type Department Care Team (Late st Contact Info) Description 09/03/2023 2:00 PM CDT Office Visit [facility] Otolaryngology [address] [place] [address] Brigid Nolasco, JARAD [address] [place] [address] Hearing loss, unspecified hearing loss type, unspecified laterality Social History Tobacco Use Types Packs/Day Years [...] you attend chur ch or catholic services? 1 to 4 times per year [...] in a senior care (including now)? No 01/20/2023 Personal Safety Answer Date Recorded Have you ever been in or are you currently in a harmful physical or emotional relationship or is someone making you feel afraid or unsafe? Denies 07/27/2023 Comments No Sex and Gender Information Value Date Recorded Sex Assigned at Not on file Legal Sex Female 9:03 AM CAMP COOK Gender Identity Female 02/08/2020 6:39 PM CDT Sexual Orientation Not on file documented as of this encounter Last Filed Vital Signs Vital Sign Reading Time Taken Comments Blood Pressure - - Pulse - - Temperature - - Respiratory Rate 18 09/03/2023 2:27 PM CDT Oxygen Saturation - - Inhaled Oxygen Concentration - - Weight 58.5 kg (129 lb) 09/03/2023 2:27 PM CDT Height 157.5 cm (5' 2 ) 09/03/2023 2:27 PM CDT Body Mass Index 23.59 09/03/2023 2:27 PM CDT documented in this encounter Progress Notes * rBigid Nolasco, BOILER OR ENGINE OPERATOR - 09/03/2023 2:00 PM CDT Barbara Chakraborty was seen in the office today. Primary care provider is Cherelle Corcoran MD . Chief Complaint: Barbara Chakraborty is a 72 y.o. female with complaints of: Chief Complaint Patient presents with Ear Problem Ear pain x 1.5 months Hearing Loss . HPI: She comes to clinic today for evaluation [...] the ear pain has improved but she continues to havetrouble hearing along with tinnitus to both ears. [...] who are not there. She denies any kn own history of chronic problems with her ears. She does have history of diabetes, hypertension, andkidney disease. She denies any recent fever, nasal congestion, dysphagia, chest pain, shortness of breath, nausea, rash, headache, heat or cold intolerance, hematuria, or easily bruising. Subjective: See HPI Past Medical/Surgical History Past Medical History: Diagnosis Date Anemia Arthritis CHF (congestive heart failure) ([facility]/HCC) (HCC) Dementia (HCC) Depression Diabetic neuropathy (HCC) GERD (gastroesophageal reflux disease) HL (hearing loss) Hyperlipidemia Hypertension Movement disorder Osteomyelitis (HCC) Renal disorder Schizophrenia (HCC) Type 2 diabetes mellitus (HCC) Past Surgical History: Procedure Laterality Date SECTION Right right foot EYE SURGERY cataracts TOE AMPUTATION Right 01/06/2020 4th toe amp/ foot debridement/ Dr. Anat Pelayo Past Family/Social History Family History Problem Relation [...] hours asneeded for pain 30 tablet 1 amLODIPine (NORVASC) 5 mg tablet Take 1 tablet (5 mg total) by mouth daily 30 tablet 1 atorvastatin (LIPITOR) 20 mg tablet Take 1 tablet (20 mg total) by mouth nightly 90 tablet 0 benztropine (COGENTIN) 1 mg tablet Take 1.5 tablets (1.5 mg total) by mouth nightly (Patient takingdifferently: Take 1.5 tablets (1.5 mg total) by mouth 2 (two) times a day) 45 tablet 0 blood-glucose sensor (FreeStyle Madhav 3 Sensor) device Use for continuous glucose monitoring. Change sensor every 14 days 6 each 3 conner.stocking,thigh,reg,med misc Wear as much as possible 2 each 1 FeroSuL 325 mg (65 mg iron) tablet TAKE 1 TABLET BY MOUTH DAILY WITH BREAKFAST 90 tablet 0 flash glucose scanning reader [facility] Use Madhav 3 reader to scan Madhav 3 sensor 1 each 0 flash glucose sensor (FreeStyle Madhav 2 Sensor) kit Use to continually monitor glucose, change every 14 days 6 kit 3 fluticasone propionate (FLONASE) 50 mcg/actuation nasal spray Administer 2 sprays into each nostrildaily 1 each 0 insulin lispro (HumaLOG, ADMELOG) 100 unit/mL pen for injection Inject 0-12 Units under the skin 3 (three) times a day before meals per sliding scale --> BG 0-140 = 0 units BG 141-174 = 2 units AT232-590 = 4 units BG 200-249 = 6 units BG 250-299 = 8 units BG 300-349 = 10 units BG 350-400 = 12 units BG >400 = call MD 15 mL 3 lidocaine (ASPERCREME) 4 % adhesive patch,medicated Place 1 patch on the skin daily to lower back pen needle, diabetic 32 gauge x 5/32 needle 1 Units 4 (four) times a day 100 each 3 insulin glargine 100 unit/mL (3 mL) pen for injection Inject 15 Units under the skin nightly Last refill before Jun appointment (Patient taking differently: Inject 18 Units under the skin nightly Last refill before Jun appointment) 15 mL 0 No current facility-administered medications for this [...] Ht 157.5 cm (5' 2 ) Wt 58.5 kg (129 lb) BMI 23.59 kg/m?? PHYSICAL EXAMINATION: Physical Exam Constitutional: General: She is not in acute distress. HENT: Head: Normocephalic and atraumatic. Jaw: No tenderness or pain on movement. Salivary Glands: Right salivary gland is not diffusely enlarged or tender. Left salivary gland is not diffusely enlarged or tender. Right Ear: Ear canal and external ear normal. A middle ear effusion is present. Left Ear: Ear canal and external ear normal. A middle ear effusion is present. Nose: No signs of injury, mucosal edema, congestion or rhinorrhea. Right Sinus: No maxillary sinus tenderness or frontal sinus tenderness. Left Sinus: No maxillary sinus tenderness or frontal sinus tenderness. Mouth/Throat: Lips: [place]. No lesions. Mouth: Mucous membranes are moist. No oral lesions. Tongue: No lesions. Tongue does not deviate [...] Memory: Cognition is impaired. Memory is impaired. Comments: She is having conversations with people who were not there. She is able to follow commands ASSESSMENT & PLAN Problem List Items Addressed This Visit None Visit Diagnoses Hearing loss, unspecified hearing loss type, unspecified laterality No evidence of AOM today Trial of flonase Referral to ENT ORDERS THIS ENCOUNTER No orders of the defined types were placed in this encounter. No orders of the defined types were placed in this encounter. Barbara is a 72-year-old female who presents to the office today with her daughter who is her caregiver. She did have audiogram prior to seeing me which was unreliable due to the pari mutuel ticket seller not gettingher to follow commands. She did have a tympanogram that does show type B tympanograms to both sides. I am going to have her use Afrin nasal spray twice daily two sprays to each side for seven days only. She will then use Flonase two sprays to each side once a day. She will take Claritin throughout this process. They do have all of these medications at home so I did not send them to the pharmacy. They will follow-up in two months for another try at an audiogram. They were instructed to contact the office with any questions, concerns, or problems. They verbalize understanding of instructions and agree with this treatment plan. Brigid Nolasco NP This note was created in part with the assistance of [employer] voice recognition software. Minor League Baseball Player variances may occur. documented in this encounter Plan of Treatment Upcoming Encounters Date Type Department Care Team (Latest Contact Info) Description 07/13/2024 9:00 AM CAMP COOK Hospital Encounter [facility] [address] [place] [address] Jaya Grier MD [address] [facility] [address] [address] 07/13/2024 9:00 AM CAMP COOK - 07/13/2024 9:30 AM CAMP COOK Surgery [facility] [address] [place] [address] Jaya Grier MD [address] [facility] [address] [place] [address] ESOPHAGOGASTRODUODENOSCOPY Scheduled Procedures Name Priority Associated Diagnoses Date/Ti me ESOPHAGOGASTRODUODENOSCOPY Anemia, unspecified type Gastritis without bleeding, unspecified chronicity, unspecified gastritis type 07/13/2024 9:00 AM CAMP COOK COLONOSCOPY Iron deficiency anemia due to chronic blood loss documented as of this encounter Visit Diagnoses Diagnosis Hearing loss, unspecified hearing loss type, unspecified laterality Anemia, unspecified type Gastritis without bleeding, unspecified chronicity, unspecified gastritis type documented in this encounter Discontinued Medications Medication Sig Discontinue Reason Start Date End Da te albuterol HFA (ProAir HFA) 90 mcg/actuation inhalerIndications:Whee zing Inhale 2 puffs every 4 (four) hours as needed for wheezing or shortness of breath Therapy completed 11/13/2022 09/03/2023 aspirin 81 mg chewable tablet Take 1 tablet (81 mg total) by mouth daily Therapy completed 07/14/2023 09/03/2023 documented as of this encounter Orders Outpatient Referral Count Last Ordered Date Fir st Ordered Date AMB REFERRAL TO ENT 1 09/03/2023 documented in this encounter Care Teams Cardiac Specialist Relationship Specialty Start Date End Date Cherelle Corcoran MD PCP - General Family Medicine 08/30/19 Mark Queen MD Consulting Physician Infectious Diseases 01/10/20 Rudolph Welch MD [address] [facility] [address] [place] [address] Consulting Physician Infectious Diseases 12/05/22 Markie Ryan MD [address] [facility] [address] [address] Consulting Physician Nephrology 12/05/22 documented as of this encounter
--- OUTSIDE RECORDS SUMMARY | 2024-07-04 04:07 | XMS_ITS | Encounter Summary ---
Author Organization [facility] Healthcare Address [address] [place] [address] Care Team Providers Care Pest Control Worker Helper Name Role Phone Cherelle Corcoran MD Primary Care Pro vider Mark uQeen MD Unavailable + [phone] Rudolph Welch MD Unavailable [phone] Markie Ryan MD Unavailable [phone] Reason for Visit * Reason Onset Date Comments scheduling STAT US 07/27/2023 Encounter Details Date Type Department Care Team ([facility] st Contact Info) Description 07/27/2023 Telephone [facility] Medical Group Primary Care at [address] [address] Cherelle Corcoran MD [facility] [address] scheduling STAT Social History Tobacco Use Types Packs/Day Years [...] attend chur ch or latter day services? 1 to 4 times per year [...] in a long term (including now)? No 01/20/2023 Personal Safety Answer Date Recorded Have you ever been in or are you currently in a harmful physical or emotional relationship or is someone making you feel afraid or unsafe? Denies 07/27/2023 Comments No Sex and Gender Information Value Date Recorded Sex Assigned at Not on file Legal Sex Female 9:03 AM COCONUT COOKER Gender Identity Female 02/08/2020 6:39 PM CDT Sexual Orientation Not on file documented as of this encounter Miscellaneous Notes * Telephone Encounter - Sandy Mota MA - 07/27/2023 10:21 AM CST Phone number given to johnny for her to call and see if there is another time. They will keep the 3pm today for now. Nothing further on our end at this time NUT COOKER * Telephone Encounter - Rose Guerrero MA - 07/27/2023 10:18 AM CST Call Back Caller???s Concern: Patient's daughter called, she is asking this be scheduled for tomorrow, her brother can take her. She received a call, states it was from the office. disconnected and took call . Does message need to be routed? Yes-Action Needed NUT COOKER * Telephone Encounter - Sandy Mota MA - 07/27/2023 9:36 AM CST Lmov for pt to return call NUT COOKER * Telephone Encounter - Sandy Mota MA - 07/27/2023 7:37 AM CST Lmov for pt daughter to return call. Needing to schedule her STAT US. NUT COOKER documented in this encounter Plan of Treatment Upcoming Encounters Date Type Department Care Team (Latest Contact Info) Description 07/13/2024 9:00 AM COCONUT COOKER Hospital Encounter [facility] [address] [place] [address] Jaya Grier MD [address] [facility] [address] [place] [address] 07/13/2024 9:00 AM COCONUT COOKER - 07/13/2024 9:30 AM COCONUT COOKER Surgery [facility] [address] [place] [address] Jaya Grier MD [address] [facility] [address] [place] [address] ESOPHAGOGASTRODUODENOSCOPY Scheduled Procedures Name Priority Associated Diagnoses Date/Ti me ESOPHAGOGASTRODUODENOSCOPY Anemia, unspecified type Gastritis without bleeding, unspecified chronicity, unspecified gastritis type 07/13/2024 9:00 AM COCONUT COOKER COLONOSCOPY Iron deficiency anemia due to chronic blood loss documented as of this encounter Visit Diagnoses Not on filedocumented in this encounter Care Teams Pest Control Worker Helper Relationship Specialty Start Date End Date Cherelle Corcoran MD PCP - General Family Medicine 08/30/19 Mark Queen MD Consulting Physician Infectious Diseases 01/10/20 Rudolph Welch MD [address] [facility] [address] [place] [address] Consulting Physician Infectious Diseases 12/05/22 Markie Ryan MD [address] [facility] [address] [place] [address] Consulting Physician Nephrology 12/05/22 documented as of this encounter
--- OUTSIDE RECORDS SUMMARY | 2024-07-04 04:07 | XMS_ITS | Encounter Summary ---
Author Organization [facility] Healthcare Address [address] [place] [address] Care Team Providers Care Marine Water Tender Name Role Phone Cherelle Corcoran MD Primary Care Pro vider Mark Queen MD Unavailable [phone] Rudolph Welch MD Unavailable [phone] Markie Ryan MD Unavailable [phone] Encounter Details Date Type Department Care Team (Late st Contact Info) Description 04/23/2023 Telephone [facility] Medical Group Primary Care at [address] [address] Cherelle Corcoran MD [address] [place] [address] Social History Tobacco Use Types Packs/Day [...] or neighbors? Three times a week 01/21/20 23 How often do you get togethe r with friends or relatives? Three times a week 01/20/2023 How often do you attend chur ch or rastafarian services? 1 to 4 times per year [...] place to sleep or slept in a jail (including now)? No 01/20/2023 Comments No Sex and Gender Information Value Date Recorded Sex Assigned at Not on file Legal Sex Female 9:03 AM TOXICS PROGRAM OFFICER Gender Identity Female 02/08/2020 6:39 PM CDT Sexual Orientation Not on file documented as of this encounter Miscellaneous Notes * Telephone Encounter - Valeria Jackson - 04/23/2023 10:49 AM CDT Error/ts documented in this encounter Plan of Treatment Upcoming Encounters Date Type Department Care Team (Latest Contact Info) Description 07/13/2024 9:00 AM TOXICS PROGRAM OFFICER Hospital Encounter [facility] [address] [place] [address] Jaya Grier MD [address] [place] [address] [address] [place] [address] 07/13/2024 9:00 AM TOXICS PROGRAM OFFICER - 07/13/2024 9:30 AM TOXICS PROGRAM OFFICER Surgery [facility] [address] [place] [address] Jaya Grier MD [facility] [facility] [address] [place] [address] ESOPHAGOGASTRODUODENOSCOPY Scheduled Procedures Name Priority Associated Diagnoses Date/Ti ia ESOPHAGOGASTRODUODENOSCOPY Anemia, unspecified type Gastritis without bleeding, unspecified chronicity, unspecified gastritis type 07/13/2024 9:00 AM TOXICS PROGRAM OFFICER COLONOSCOPY Iron deficiency anemia due to chronic blood loss documented as of this encounter Visit Diagnoses Not on filedocumented in this encounter Additional Health Concerns Infection Onset Date Last Indicated Resolved Time MRSA Comment:Toe 11/08/22, 12/12/22 11/08/2022 12/12/2022 06/10/2023 3:05 AM TOXICS PROGRAM OFFICER documented as of this encounter Care Teams Marine Water Tender Relationship Specialty Start Date End Date Cherelle Corcoran MD PCP - General Family Medicine 08/30/19 Mark Queen MD Consulting Physician Infectious Diseases 01/10/20 Rudolph Welch MD [address] [facility] [address] [place] [address] Consulting Physician Infectious Diseases 12/05/22 Markie Ryan MD [address] [facility] [address] [place] [address] Consulting Physician Nephrology 12/05/22 documented as of this encounter
--- OUTSIDE RECORDS SUMMARY | 2024-07-04 04:07 | XMS_ITS | Encounter Summary ---
Author Organization [facility] Healthcare Address [address] [place] [address] Care Team Providers Care Foreign Languages Department Chair Name Role Phone Cherelle Corcoran MD Primary Care Pro vider Mark Queen MD Unavailable + [phone] Rudolph Welch MD Unavailable [phone] Markie Ryan MD Unavailable [phone] Encounter Details Date Type Department Care Team (Late st Contact Info) Description 04/06/2023 Telephone [facility] Medical Group Primary Care at [address] [address] Cherelle Corcoran MD [address] [place] [address] Social History Tobacco Use Types Packs/Day [...] you attend chur ch or mu-ism services? 1 to 4 times per year [...] slept in a retirement (including now)? No 01/20/2023 Comments No Sex and Gender Information Value Date Recorded Sex Assigned at Not on file Legal Sex Female 9:03 AM CATERING TRUCK OPERATOR Gender Identity Female 02/08/2020 6:39 PM CDT Sexual Orientation Not on file documented as of this encounter Miscellaneous Notes * Telephone Encounter - Valeria Jackson - 04/06/2023 10:59 AM CDT NoShow letter #1 mailed to patient regarding her missed appointment on 03-31-[address] Corcoran./ts documented in this encounter Plan of Treatment Upcoming Encounters Date Type Department Care Team (Latest Contact Info) Description 07/13/2024 9:00 AM CATERING TRUCK OPERATOR Hospital Encounter [facility] [address] [place] [address] Jaya Grier MD [address] [place] [address] [address] [place] [address] 07/13/2024 9:00 AM CATERING TRUCK OPERATOR - 07/13/2024 9:30 AM CATERING TRUCK OPERATOR Surgery [facility] [address] [place] [address] Jaya Grier MD [facility] [facility] [address] [place] [address] ESOPHAGOGASTRODUODENOSCOPY Scheduled Procedures Name Priority Associated Diagnoses Date/Ti nv ESOPHAGOGASTRODUODENOSCOPY Anemia, unspecified type Gastritis without bleeding, unspecified chronicity, unspecified gastritis type 07/13/2024 9:00 AM CATERING TRUCK OPERATOR COLONOSCOPY Iron deficiency anemia due to chronic blood loss documented as of this encounter Visit Diagnoses Not on filedocumented in this encounter Additional Health Concerns Infection Onset Date Last Indicated Resolved Time MRSA Comment:Toe 11/08/22, 12/12/22 11/08/2022 12/12/2022 06/10/2023 3:05 AM CATERING TRUCK OPERATOR documented as of this encounter Care Teams Foreign Languages Department Chair Relationship Specialty Start Date End Date Cherelle Corcoran MD PCP - General Family Medicine 08/30/19 Mark Queen MD Consulting Physician Infectious Diseases 01/10/20 Rudolph Welch MD [address] [facility] [address] [place] [address] Consulting Physician Infectious Diseases 12/05/22 Markie Ryan MD [address] [facility] [address] [place] [address] Consulting Physician Nephrology 12/05/22 documented as of this encounter
--- OUTSIDE RECORDS SUMMARY | 2024-07-04 04:07 | XMS_ITS | Encounter Summary ---
Author Organization [facility] Healthcare Address [address] [place] [address] Care Team Providers Care Deputy Jailer Name Role Phone Cherelle Corcoran MD Primary Care Pro vider Mark Queen MD Unavailable [phone] Rudolph Welch MD Unavailable [phone] Markie Ryan MD Unavailable [phone] Encounter Details Date Type Department Care Team (Late st Contact Info) Description 07/29/2023 Telephone [facility] Medical Group Primary Care at [address] [address] Cherelle Corcoran MD [address] [place] [address] Social History Tobacco Use Types Packs/Day [...] you attend chur ch or baptist services? 1 to 4 times per year [...] in a nursing home (including now)? No 01/20/2023 Personal Safety Answer Date Recorded Have you ever been in or are you currently in a harmful physical or emotional relationship or is someone making you feel afraid or unsafe? Denies 07/27/2023 Comments No Sex and Gender Information Value Date Recorded Sex Assigned at Not on file Legal Sex Female 9:03 AM NURSE EXTERN Gender Identity Female 02/08/2020 6:39 PM CDT Sexual Orientation Not on file documented as of this encounter Miscellaneous Notes * Telephone Encounter - Valeria Jackson - 07/30/2023 2:44 PM CST Contacted patient to schedule her emergency room follow-up appointment with Dr Corcoran. Patient's daughter requested 08-03-- due to her being off work on that date./ts E EXTERN * Telephone Encounter - Cherelle Corcoran MD - 07/29/2023 4:02 PM CST Please schedule ED follow up. thanks E EXTERN documented in this encounter Plan of Treatment Upcoming Encounters Date Type Department Care Team (Latest Contact Info) Description 07/13/2024 9:00 AM NURSE EXTERN Hospital Encounter [facility] Lab [address] [place] [address] Jaya Grier MD [address] [facility] [address] [place] [address] 07/13/2024 9:00 AM NURSE EXTERN - 07/13/2024 9:30 AM NURSE EXTERN Surgery [facility] [address] [place] [address] Jaya Grier MD [address] [facility] [address] [place] [address] ESOPHAGOGASTRODUODENOSCOPY Scheduled Procedures Name Priority Associated Diagnoses Date/Ti me ESOPHAGOGASTRODUODENOSCOPY Anemia, unspecified type Gastritis without bleeding, unspecified chronicity, unspecified gastritis type 07/13/2024 9:00 AM NURSE EXTERN COLONOSCOPY Iron deficiency anemia due to chronic blood loss documented as of this encounter Visit Diagnoses Not on filedocumented in this encounter Care Teams Deputy Jailer Relationship Specialty Start Date End Date Cherelle Corcoran MD PCP - General Family Medicine 08/30/19 Mark Queen MD Consulting Physician Infectious Diseases 01/10/20 Rudolph Welch MD [address] [facility] [address] [place] [address] Consulting Physician Infectious Diseases 12/05/22 Markie Ryan MD [address] [facility] [address] [place] [address] Consulting Physician Nephrology 12/05/22 documented as of this encounter
--- OUTSIDE RECORDS SUMMARY | 2024-07-04 04:07 | XMS_ITS | Encounter Summary ---
Author Organization [facility] Healthcare Address [address] [place] [address] Care Team Providers Care Digital Field Service Technician Name Role Phone Cherelle Corcoran MD Primary Care Pro vider Mark Queen MD Unavailable [phone] Rudolph Welch MD Unavailable [phone] Markie Ryan MD Unavailable [phone] Reason for Visit * Reason Comments Urinary Problem Abnormal Lab Encounter Details Date Type Department Care Team (Late st Contact Info) Description 07/28/2023 12:24 AM [facility] - 07/28/2023 1:16 PM [facility] Emergency [facility] Emergency Department [address] [place] [address] Pain in left lower leg (Primary Dx); Chronic kidney disease, unspecified CKD stage; Hypertension, unspecified type Discharge Disposition: Discharge to home or [...] slept in a fpc (including now)? No 01/20/2023 Personal Safety Answer Date Recorded Have you ever been in or are you currently in a harmful physical or emotional relationship or is someone making you feel afraid or unsafe? Denies 07/27/2023 Comments No Sex and Gender Information Value Date Recorded Sex Assigned at Not on file Legal Sex Female 9:03 AM TOLL SERVICE OBSERVER Gender Identity Female 02/08/2020 6:39 PM CDT Sexual Orientation Not on file documented as of this encounter Last Filed Vital Signs Vital Sign Reading Time Taken Comments Blood Pressure 150/67 07/28/2023 12:47 PM TOLL SERVICE OBSERVER Pulse 80 07/28/2023 12:47 PM TOLL SERVICE OBSERVER Temperature 36.7 ??C (98.1 ??F) 07/27/2023 11:[address] Respiratory Rate 15 07/28/2023 8:45 AM TOLL SERVICE OBSERVER Oxygen Saturation 97% 07/28/2023 12:47 PM TOLL SERVICE OBSERVER Inhaled Oxygen Concentration - - Weight 56.7 kg (125 lb) 07/28/2023 12:30 AM TOLL SERVICE OBSERVER Height - - Body Mass Index 22.86 07/24/2023 1:29 PM TOLL SERVICE OBSERVER documented in this encounter Discharge Instructions * Discharge Instructions* Sarahy Benitez PA - 07/28/2023 9:48 AM TOLL SERVICE OBSERVER Please call your primary care physician regarding today's emergency room visit. If her symptoms do not improve or get worse please return to the ER immediately for re-evaluation. SERVICE OBSERVER * Attachments The following attachments cannot be sent through Care Everywhere. * Heart Disease Education ([place] Ze[place]) * Myalgias ([place]) documented in this encounter Medications at Time [...] scan Madhav 3 sensor 1 each 06/30/2023 lidocaine (ASPERCREME) 4 % adhesive patch,medicated Place 1 patch on the skin daily as needed to lower back acetaminophen (TYLENOL) 325 mg tabletIndications :Osteomyelitis of great toe of right foot (CMS/HCC) (HCC) Take 2 tablets (650 mg total) by mouth every 6 (six) hours as needed for pain 30 tablet 1 03/24/2023 4 albuterol HFA (ProAir HFA) 90 mcg/actuation inhalerIndication s:Wheezing Inhale 2 puffs every 4 (four) hours as needed for wheezing or shortness of breath 8.5 g 11/13/2022 4 amLODIPine (NORVASC) 10 mg tablet Take 0.5 tablets (5 mg total) by mouth daily 30 tablet 07/28/2023 4 apixaban (ELIQUIS) 5 mg tabletIndications :Pain of left lower extremity Take 2 tablets (10 mg total) by mouth 2 (two) times a day for 7 days 28 tablet 07/24/2023 4 aspirin 81 mg chewable tablet Take 1 tablet (81 mg total) by mouth daily 07/14/2023 4 atorvastatin (LIPITOR) 20 mg tablet Take 1 tablet (20 mg total) by mouth nightly 90 tablet 04/24/2023 4 benztropine (COGENTIN) 1 mg tablet Take 1.5 tablets (1.5 mg total) by mouth nightly 45 tablet 11/13/2022 4 cefdinir (OMNICEF) 300 mg capsuleIndication s:Acute cystitis with hematuria,Acute upper respiratory infection Take 1 capsule (300 mg total) by mouth daily for 10 days 10 capsule 07/24/2023 4 conner.stocking, thigh,reg,med miscIndications:P eripheral edema Wear as much as possible 2 each 1 05/28/2021 4 FeroSuL 325 mg (65 mg iron) tabletIndications :Iron deficiency anemia, unspecified iron deficiency anemia type TAKE 1 TABLET BY MOUTH DAILY WITH BREAKFAST 90 tablet 07/28/2023 4 flash glucose sensor (FreeStyle Madhav 2 Sensor) kitIndications:Ty pe 2 diabetes mellitus with diabetic neuropathy, with long-term current use of insulin (HCC) Use to continually monitor glucose, change every 14 days 6 kit 3 03/24/2023 4 insulin glargine 100 unit/mL (3 mL) pen for injectionIndicati ons:Type 2 diabetes mellitus with diabetic neuropathy, with long-term current use of insulin ([facility]) Inject 15 Units under the skin nightly Last refill before [place] appointment 15 mL 05/04/2023 4 insulin lispro (HumaLOG, ADMELOG) 100 unit/mL pen for injectionIndicati ons:Type 2 diabetes mellitus with diabetic neuropathy, with long-term current use of insulin ([facility]) Inject 0-12 Units under the skin 3 (three) times a day before meals per sliding scale --> BG 0-140 = 0 units BG 141-174 = 2 units BG 175-199 = 4 units BG 200-249 = 6 units BG 250-299 = 8 units BG 300-349 = 10 units BG 350-400 = 12 units BG >400 = call MD 15 mL 3 03/24/2023 4 pen needle, diabetic 32 gauge x 5/32 needleIndications :Type 2 diabetes mellitus with diabetic neuropathy, with long-term current use of insulin ([facility]) 1 Units 4 (four) times a day 100 each 3 03/24/2023 4 valsartan (DIOVAN) 40 mg tablet Take 1 tablet (40 mg total) by mouth daily 90 tablet 3 04/07/2023 4 documented as of this encounter Ordered Prescriptions Prescription Sig Dispense Quantity Refills Last Filled Start Date End Date amLODIPine (NORVASC) 10 mg tablet Take 0.5 tablets (5 mg total) by mouth daily 30 tablet 07/28/2023 4 documented in this encounter Discharge Disposition Disposition Code Departure Means Destination Comment s Discharge to home or self care documented in this encounter ED Notes * Sarahy Benitez PA - 07/28/2023 7:36 AM CST HPI Mrs. Barbara Chakraborty is a 72-year-old female with a medical history that includes but is not limited to-left leg DVT, late onset Alzheimer's dementia, osteoarthritis, acute on chronic diastolic heartfailure, chronic kidney disease stage 4, schizoaffective disorder, depression- patient presents to the ER today with complaints of left lower extremity pain for several days. Patient reports that sheuses a walker/cane to ambulate. She denies any other associated symptoms at this time. Chief Complaint Patient presents with Urinary Problem Abnormal Lab HPI Patient History: Patient Active Problem List Diagnosis Date Noted GI bleed 12/20/2022 Bandemia 12/20/2022 Shortness of breath 12/13/2022 Acute on chronic diastolic congestive heart failure ([facility]) ([facility]) 12/06/2022 Bibasilar consolidations 12/06/2022 Movement disorder 12/06/2022 Abnormal urinalysis 11/07/2022 Osteomyelitis of great toe of right foot ([facility]) ([facility]) 11/06/2022 Anemia in stage 4 chronic kidney disease ([facility]) 10/10/2022 Wheezing Parkinsonism 08/14/2022 Pulmonary nodule 11/16/2021 Physical deconditioning 11/15/2021 Left leg DVT (CMS/[facility]) ([facility]) 11/15/2021 Toe necrosis ([facility]) ([facility]) 10/07/2021 Anemia 09/07/2021 Volume overload 09/06/2021 Retention of urine, unspecified 08/22/2021 Unspecified osteoarthritis, unspecified site 08/22/2021 Unsteadiness on feet 08/22/2021 Weakness 08/22/2021 Late onset Alzheimer's dementia without behavioral disturbance ([facility]) 08/19/2021 Encounter for Medicare annual wellness exam 01/08/2021 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 2 diabetes mellitus ([facility]) ([facility]) 12/11/2020 Schizoaffective disorder, bipolar type ([facility]) ([facility]) 10/10/2020 Mixed hyperlipidemia 04/03/2020 Iron deficiency anemia 04/02/2020 Gastroesophageal reflux disease 04/02/2020 Amputation of toe of right foot ([facility]) ([facility]) 01/19/2020 Primary hypertension 12/13/2019 Type 2 diabetes mellitus with diabetic neuropathy, with long-term current use of insulin (CMS/[facility]) ([facility]) 08/30/2019 Diabetic neuropathy ([facility]) Past Medical History: Diagnosis Date Anemia Arthritis CHF (congestive heart failure) ([facility]/HCC) (HCC) Dementia (HCC) Depression Diabetic neuropathy (HCC) GERD (gastroesophageal reflux disease) Hyperlipidemia Hypertension Movement disorder Osteomyelitis (HCC) Renal disorder Schizophrenia (HCC) Type 2 diabetes mellitus ([facility]) Past Surgical History: Procedure Laterality Date SECTION Right right foot TOE AMPUTATION Right 01/06/2020 4th toe amp/ foot debridement/ Dr. Anat Pelayo Family History Problem Relation Age of Onset Diabetes Mother Heart disease Mother Kidney disease Mother Stomach cancer Father Alcohol abuse Father Diabetes Sister Diabetes Sister Diabetes Brother Social History Tobacco Use Smoking status: Never Smokeless tobacco: Never Substance and Sexual Activity Alcohol use: Not Currently Drug use: Never Sexual activity: Not Currently Partners: Male Social History Social History Narrative Originally From [place] Grew up with her mom and dad. 12th grade - graduated. [employer]. [employer] - none. Jew. I never worked. Single. Review of Systems Review of Systems Constitutional: Negative for chills and fever. HENT: Negative for ear pain and sore throat. Eyes: Negative for pain and visual disturbance. Respiratory: Negative for cough and shortness of breath. Cardiovascular: Negative for chest pain and palpitations. Gastrointestinal: Negative for abdominal pain and vomiting. Genitourinary: Negative for dysuria and hematuria. Musculoskeletal: Positive for myalgias. Negative for arthralgias and back pain. Skin: Negative for color change and rash. Neurological: Negative for seizures and syncope. All other systems reviewed and are negative. Physical Exam ED Triage Vitals Temp Pulse Resp BP SpO2 07/27/23 2324 07/27/23 2324 07/27/23 2324 07/27/23 2324 07/27/23 232 36.7 ??C (98.1 ??F) 70 16 (!) 196/70 100 % Temp src Heart Rate Source Patient Position BP Location FiO2 (%) -- -- 07/28/23 0845 07/28/23 0845 -- Reclining Right arm Height Height Method Weight Weight Method -- -- 07/28/23 0030 07/28/23 0030 56.7 kg (125 lb) Stated Physical Exam Vitals and nursing note reviewed. [...] tenderness. Musculoskeletal: General: No swelling. Cervical back: Normal range of motion. Comments: Tenderness to palpation to left medial thigh, no edema, erythema, ecchymosis, skin rashesor abrasions noted. +DP pulses bilaterally Skin: General: Skin is warm and dry. Capillary Refill: Capillary refill takes less than 2 seconds. Neurological: Mental Status: She is alert. Psychiatric: Mood and Affect: Mood normal. MDM Medical Decision Making DVT, muscle strain, muscle sprain, peripheral vascular disease 72-year-old female with a medical history that includes but is not limited to- left leg DVT, late onset Alzheimer's dementia, osteoarthritis, acute on chronic diastolic heart failure, chronic kidney disease stage 4, schizoaffective disorder, depression- patient presents to the ER today with complaints of left lower extremity pain for several days. Patient reports that she uses a walker/cane to ambulate. She denies any other associated symptoms at this time. Blood pressure 230/73 patient had her valsartan discontinued yesterday due to elevation in creatinine, hydralazine 10 mg IV given and will reach out to her primary care physician in regards to what medication she is taking to substitute valsartan. Venous Doppler left lower extremity negative for DVT White blood cell count 13.5, patient is being currently treated for a UTI and an otitis media with Omnicef by her PCP Consulted Dr. Cherelle Corcoran, she verified that she discontinued the valsartan due to increasing creatinine and is recommending starting amlodipine at low dose and if blood pressure improves patient can be discharged home to follow-up with her in her office. Amount and/or Complexity of Data Reviewed Radiology: ordered. Risk Prescription drug management. Final diagnoses: Pain in left lower leg Chronic kidney disease, unspecified CKD stage Hypertension, unspecified type Sarahy Benitez PA 07/28/23 1404 Sarahy Benitez PA 07/28/23 1718 Cosigned by Lucy Lucero MD at 07/28/2023 5:34 PM TOLL SERVICE OBSERVER SERVICE OBSERVER SERVICE OBSERVER SERVICE OBSERVER SERVICE OBSERVER * Richard Gotti RN - 07/27/2023 11:31 PM CST Pt BIB POV from home for known UTI and elevated kidney lab levels. Pt was at her PCP on Thursday and sent home with antibiotics. Daughter reports that Pt is becoming more incontinent and confused. GCS 14. SERVICE OBSERVER documented in this encounter Plan of Treatment Upcoming Encounters Date Type Department Care Team (Latest Contact Info) Description 07/13/2024 9:00 AM TOLL SERVICE OBSERVER Hospital Encounter [facility] [address] [place] [address] Jaya Grier MD [address] [place] [address] [address] GAINES [address] [place] [address] 07/13/2024 9:00 AM TOLL SERVICE OBSERVER - 07/13/2024 9:30 AM TOLL SERVICE OBSERVER Surgery [facility] [address] [place] [address] Jaya Grier MD [facility] [address] GAINES [address] [place] [id number] ESOPHAGOGASTRODUODENOSCOPY Scheduled Procedures Name Priority Associated Diagnoses Date/Ti ok ESOPHAGOGASTRODUODENOSCOPY Anemia, unspecified type Gastritis without bleeding, unspecified chronicity, unspecified gastritis type 07/13/2024 9:00 AM TOLL SERVICE OBSERVER COLONOSCOPY Iron deficiency anemia due to chronic blood loss documented as of this encounter Procedures Procedure Name Priority Date/Time Associated Diagnosis Comments POCT GLUCOSE DEVICE Routine 07/28/2023 9 :23 AM TOLL SERVICE OBSERVER XR CHEST 1 VIEW ED 07/28/2023 8:52 AM TOLL SERVICE OBSERVER US VEIN DUPLEX LOWER EXTREMITY LEFT LIMITED ED Urgent/IP Urgent 07/28/2023 8:22 AM TOLL SERVICE OBSERVER POCT GLUCOSE DEVICE Routine 07/28/2023 3 :38 AM TOLL SERVICE OBSERVER URINALYSIS AND REFLEX TO MICROSCOPIC AND CULTURE STAT 07/28/2023 12:53 AM TOLL SERVICE OBSERVER URINALYSIS, MICROSCOPIC ONLY STAT 07/28/2023 12:53 AM TOLL SERVICE OBSERVER POCT GLUCOSE DEVICE Routine 07/28/2023 1 2:38 AM TOLL SERVICE OBSERVER EGFR STAT 07/28/2023 12:20 AM TOLL SERVICE OBSERVER COMPREHENSIVE METABOLIC PANEL STAT 07/28/2023 12:20 AM TOLL SERVICE OBSERVER DIFFERENTIAL AUTO STAT 07/27/2023 11: 56 PM TOLL SERVICE OBSERVER RESPIRATORY PATHOGEN PANEL Routine 07/27/2023 11:56 PM TOLL SERVICE OBSERVER CBC WITH AUTO DIFFERENTIAL STAT 07/27/2023 11:56 PM TOLL SERVICE OBSERVER documented in this encounter Results * POCT glucose (07/28/2023 9:23 AM TOLL SERVICE OBSERVER) [facility] Signature Glucose, POC 165 70 - 199 mg/dL NILSA MCDONNELL Blood 07/28/2023 9:23 AM TOLL SERVICE OBSERVER 07/28/2023 9:23 AM TOLL SERVICE OBSERVER us Notinfile Unknown LAB POCT ORDERABLES - DEVICE F inal Result NILSA MCDONNELL [address] Department [place] [address] * XR Chest 1 Vw Portable (07/28/2023 8:52 AM TOLL SERVICE OBSERVER) Anatomical Region Laterality Modality Body, Chest N/A Computed Radiogr aphy 07/28/2023 8:55 AM TOLL SERVICE OBSERVER Impressions 07/28/2023 8:55 AM TOLL SERVICE OBSERVER No active disease. Electronically signed by: Arabella Ma M.D. Narrative 07/28/2023 8:55 AM TOLL SERVICE OBSERVER EXAMINATION: XR CHEST 1 VIEW HISTORY: The patient is a 72-year-old female who presents with elevated white cell count. ??Comparison is made with the previous study dated 12/07/2022. TECHNIQUE: AP portable view of the chest. FINDINGS: Lungs clear. ??Cardiovascular structures unremarkable. Procedure Note Arabella Ma MD - 07/28/2023 EXAMINATION: XR CHEST 1 VIEW HISTORY: The patient is a 72-year-old female who presents with elevated white cell count. Comparison is made with the previous study dated 12/07/2022. TECHNIQUE: AP portable view of the chest. FINDINGS: Lungs clear. Cardiovascular structures unremarkable. IMPRESSION: No active disease. Electronically signed by: Arabella Ma M.D. Sarahy CUEVA IMG XR PROCEDURES Final Result * US VEIN DUPLEX LOWER EXTREMITY LEFT LIMITED, UNILATERAL (07/28/2023 8:22 AM TOLL SERVICE OBSERVER) Anatomical Region Laterality Modality Vascular Left Ultrasound 07/28/2023 8:29 AM TOLL SERVICE OBSERVER Impressions 07/28/2023 8:29 AM TOLL SERVICE OBSERVER No deep venous thrombosis in the left lower extremity. Electronically signed by: Alpesh Jaquez M.D. Narrative 07/28/2023 8:29 AM TOLL SERVICE OBSERVER EXAMINATION: US VEIN DUPLEX LOWER EXTREMITY LEFT LIMITED, UNILATERAL DATE: 07/28/2023 7:40 AM HISTORY: Left medial thigh pain FINDINGS: Grayscale, color Doppler and spectral Doppler images were obtained. The left common femoral, superficial femoral, deep femoral, popliteal, posterior tibial and peroneal veins have normal antegrade flow with normal compression and augmentation. By history, the patient had a negative DVT ultrasound of the lower extremities performed at an outside hospital on 07/27/2023. Procedure Note Alpesh Jaquez MD - 07/28/2023 EXAMINATION: US VEIN DUPLEX LOWER EXTREMITY LEFT LIMITED, UNILATERAL DATE: 07/28/2023 7:40 AM HISTORY: Left medial thigh pain FINDINGS: Grayscale, color Doppler and spectral Doppler images were obtained. The left common femoral, superficial femoral, deep femoral, popliteal, posterior tibial and peroneal veins have normal antegrade flow with normal compression and augmentation. By history, the patient had a negative DVT ultrasound of the lower extremities performed at an outside hospital on 07/27/2023. IMPRESSION: No deep venous thrombosis in the left lower extremity. Electronically signed by: Alpesh Jaquez M.D. us Sarahy CUEVA IMG US PROCEDURES Final Result * (ABNORMAL) POCT glucose (07/28/2023 3:38 AM TOLL SERVICE OBSERVER) Glucose, POC 214(H) 70 - 199 mg/dL CERNER Blood 07/28/2023 3:38 AM TOLL SERVICE OBSERVER 07/28/2023 3:38 AM TOLL SERVICE OBSERVER us Notinfile Unknown LAB POCT ORDERABLES - DEVICE F inal Result NILSA [address] Department [place] [address] * (ABNORMAL) Urinalysis, microscopic only (07/28/2023 12:53 AM TOLL SERVICE OBSERVER) WBC, ur 0-5 0 - 5 /HPF [facility] RBC, ur 0-2 0 - 2 /HPF [facility] Epithelial cells, squamous, ur 1-5 0 - 5 /HPF [facility] Bacteria, ur 1+(A) CERNER Yeast, ur 4+(A) CERNER CH Mucous, ur Present(A) CERNER Culture Reflex Comment Reflex conditions for urine culture (WBC >10) not met. [facility] Urine 07/28/2023 12:5 3 AM TOLL SERVICE OBSERVER 07/28/2023 12:56 AM TOLL SERVICE OBSERVER Arie Burgos MD LAB URINE ORDERABLES Final Result NILSA MCDONNELL [address] Department of Laboratories [place], [place] [id number] * (ABNORMAL) Urinalysis reflex to microscopic and culture Urine (07/28/2023 12:53 AM TOLL SERVICE OBSERVER) Color, ur Yellow Yellow CERNER CH Clarity, ur Cloudy(A) Clear CERNER CH Specific gravity, ur 1.015 1.003 - 1.030 CERNER CH pH, urine 5.0 CERNER CH Comment: Interpretive Data ? Urine pH is affected by diet, medications, systemic acid-base disturbances, and renal tubular function. ??pH may affect urinary stone formation. ??For example, urine pH below 6.0 may help reduce the tendency for calcium phosphate stones and pH greater than 6.0 may reduce the tendency for uric acid stone formation. Source: [facility] Current Interpretive Data was last revised on 2017 Protein, ur ql 3+(A) Negative CERNER CH Glucose, ur ql 2+(A) Negative CERNER CH Ketones, ur Negative Negative CERNER CH Bilirubin, ur Negative Negative CERNER CH Blood, ur Negative Negative CERNER CH Urobilinogen, ur <2.0 <2.0 mg/dL CERNER CH Nitrite, ur Negative Negative CERNER CH Leukocyte esterase, ur Negative Negative CERNER CH UA reflex comment Reflex to microscopic UA will be performed. CERNER Urine 07/28/2023 12:5 3 AM TOLL SERVICE OBSERVER 07/28/2023 12:56 AM TOLL SERVICE OBSERVER Narrative CERNER CH - 07/28/2023 1:08 AM TOLL SERVICE OBSERVER If patient unable to urinate, straight cath Arie Burgos MD LAB MICROBIOLOGY - GENERAL ORDERABLES Final Result NILSA MCDONNELL [address] [place] [address] * (ABNORMAL) POCT glucose (07/28/2023 12:38 AM TOLL SERVICE OBSERVER) Glucose, POC 203(H) 70 - 199 mg/dL CERNER CH Blood 07/28/2023 12:3 8 AM TOLL SERVICE OBSERVER 07/28/2023 12:38 AM TOLL SERVICE OBSERVER us Notinfile Unknown LAB POCT ORDERABLES - DEVICE F inal Result Performing Organization Address [facility] Co de Phone Number NILSA [address] Department [place] [address] * eGFR (07/28/2023 12:20 AM TOLL SERVICE OBSERVER) eGFR 13 mL/min/1. 73 m2 NILSA Comment: Interpretive Data Reference Interval Normal ?>/= [...] interpretive data was last reviewed 2021. Blood 07/28/2023 12:2 0 AM TOLL SERVICE OBSERVER 07/28/2023 12:47 AM TOLL SERVICE OBSERVER us Arie Burgos MD LAB BLOOD ORDERABLES Final Result Performing Organization Address [facility] Co de Phone Number NILSA MCDONNELL [address] Department [place] [address] * (ABNORMAL) Comprehensive metabolic panel (07/28/2023 12:20 AM TOLL SERVICE OBSERVER) Sodium 141 135 - 145 mmol/L CERNER CH Potassium, pl 3.5 3.3 - 4.9 mmol/L CERNER CH Chloride 108 97 - 110 mmol/L CERNER CH CO2 20(L) 22 - 32 mmol/L CERNER CH Anion gap 13 2 - 15 mmol/L CERNER CH BUN 48(H) 6 - 25 mg/dL CERNER CH Creatinine 3.63(H) 0.60 - 1.10 mg/dL CERNER CH Glucose 215(H) 70 - 199 mg/dL CERNER CH Comment: Interpretive Data Fasting glucose >/= 126 [...] interpretive data was last revised 2022. Calcium 8.6 8.5 - 10.3 mg/dL CERNER CH Bilirubin, total <0.2 0.1 - 1.2 mg/dL CERNER CH Protein, pl 6.8 6.5 - 8.5 g/dL CERNER CH Albumin 2.3(L) 3.5 - 5.0 g/dL CERNER CH Alk phos 177(H) 40 - 130 Units/L CERNER CH ALT 22 7 - 45 Units/L CERNER CH AST 24 10 - 45 Units/L CERNER CH Blood 07/28/2023 12:2 0 AM TOLL SERVICE OBSERVER 07/28/2023 12:40 AM TOLL SERVICE OBSERVER us Arie Burgos MD LAB BLOOD ORDERABLES Final Result NILSA MCDONNELL [address] [place] [address] * (ABNORMAL) Differential, auto (07/27/2023 11:56 PM TOLL SERVICE OBSERVER) Neutrophil abs 9.4(H) 1.5 - 6.5 K/cumm CERNER CH Imm gran abs 0.1 0.0 - 0.1 K/cumm CERNER CH Lymphocyte abs 3.1 0.8 - 3.3 K/cumm CERNER CH Monocyte abs 0.6 0.2 - 0.8 K/cumm CERNER CH Eosinophil abs 0.2 0.0 - 0.5 K/cumm CERNER CH Basophil abs 0.1 0.0 - 0.1 K/cumm CERNER CH Neutrophil pct 69.8 % CERNER CH Comment: Interpretive Data Percent cell count reference ranges are not reported, since discordance with absolute values may lead to misinterpretation of CBC data. Current Interpretive Data was last revised on 2017. Imm gran pct 0.4 % CERNER Comment: Interpretive Data Percent cell count reference ranges are not reported, since discordance with absolute values may lead to misinterpretation of CBC data. Current Interpretive Data was last revised on 2017. Lymphocyte pct 23.3 % CERNER Comment: Interpretive Data Percent cell count reference ranges are not reported, since discordance with absolute values may lead to misinterpretation of CBC data. Current Interpretive Data was last revised on 2017. Monocyte pct 4.5 % CERNER CH Comment: Interpretive Data Percent cell count reference ranges are not reported, since discordance with absolute values may lead to misinterpretation of CBC data. Current Interpretive Data was last revised on 2017. Eosinophil pct 1.6 % CERNER Comment: Interpretive Data Percent cell count reference ranges are not reported, since discordance with absolute values may lead to misinterpretation of CBC data. Current Interpretive Data was last revised on 2017. Basophil pct 0.4 % CERNER Comment: Interpretive Data Percent cell count reference ranges are not reported, since discordance with absolute values may lead to misinterpretation of CBC data. Current Interpretive Data was last revised on 2017. Blood 07/27/2023 11:5 6 PM TOLL SERVICE OBSERVER 07/27/2023 11:59 PM TOLL SERVICE OBSERVER us Arie Burgos MD LAB BLOOD ORDERABLES Final Result [facility] [id number] Department [place] [address] * Respiratory pathogen panel Nasopharyngeal (07/27/2023 11:56 PM TOLL SERVICE OBSERVER) Influenza A RNA Not Detected Not Detected [facility] Influenza B RNA Not Detected Not Detected [facility] RSV RNA Not Detected Not Detected [facility] COVID-19 RNA Not Detected Not Detected [facility] Coronavirus 229E RNA Not Detected Not Detected [facility] Coronavirus HKU1 RNA Not Detected Not Detected [facility] Coronavirus NL63 RNA Not Detected Not Detected [facility] Coronavirus OC43 RNA Not Detected Not Detected [facility] Adenovirus DNA Not Detected Not Detected [facility] Metapneumovirus RNA Not Detected Not Detected [facility] Rhinovirus/Enterov irus RNA Not Detected Not Detected [facility] Parainfluenza 1 RNA Not Detected Not Detected [facility] Parainfluenza 2 RNA Not Detected Not Detected [facility] Parainfluenza 3 RNA Not Detected Not Detected [facility] Parainfluenza 4 RNA Not Detected Not Detected [facility] B. pertussis DNA Not Detected Not Detected [facility] B. parapertussis DNA Not Detected Not Detected [facility] C. pneumoniae DNA Not Detected Not Detected [facility] M. pneumoniae DNA Not Detected Not Detected [facility] Comment: Interpretive Data [employer] FilmArray Respiratory Panel (RP2.1) assay is a multiplexed real-time PCR based nucleic acid test capable of simultaneous qualitative detection and identification of multiple respiratory viral and bacterial nucleic acids, including SARS Coronavirus 2 (the causative agent of COVID-19). The following bacteria, viruses and virus subtypes can be identified using the FilmArray RP2.1 assay: Bordetella pertussis, Bordetella parapertussis, Chlamydia pneumoniae, Mycoplasma pneumoniae, Adenovirus, SARS Coronavirus 2, seasonal coronaviruses (Coronavirus HKU1, Coronavirus NL63, Coronavirus 229E, and Coronavirus OC43), Influenza A, Influenza A subtype H1, Influenza A subtype H3, Influenza A subtype 2009 H1, Influenza B, Metapneumovirus, Parainfluenza 1, Parainfluenza 2, Parainfluenza 3, Parainfluenza 4, RSV, Rhinovirus/Enterovirus. Due to the genetic similarity between human Rhinovirus and Enterovirus, the FilmArray RP2.1 assay cannot reliably differentiate them. Coronavirus OC43 may cross-react with some isolates of Coronavirus HKU1. ??A dual positive result may be due to cross-reactivity or may indicate a co-infection. The detection and identification of specific viral and bacterial nucleic acids from individuals exhibiting signs and symptoms of a respiratory infection aids in the diagnosis of respiratory infection if used in conjunction with other clinical and epidemiological information. ??The results of this test should not be used as the sole basis for diagnosis, treatment, or other management decisions. ??Negative results in the setting of a respiratory illness may be due to infection with pathogens that are not detected by this test. ??Positive results do not rule out infection/co-infection with other organisms. ??The agent(s) detected by the FilmArray RP2.1 may not be the definite cause of disease. ??Additional testing (lab, imaging, etc.) may be necessary when evaluating a patient with possible respiratory tract infection. The FilmArray RP2.1 assay has FDA clearance for testing of SALES AND MARKETING SPECIALIST swabs. ??The performance characteristics of this assay have been determined by [facility]. Current interpretive data was last revised on 2021. Nasopharyngeal 07/27/2023 11 :56 PM TOLL SERVICE OBSERVER 07/28/2023 [facility] NILSA - 07/28/2023 12:55 AM TOLL SERVICE OBSERVER Is the Patient experiencing symptoms consistent with COVID?->Yes Surveillance testing for transplant patient?->No us Arie Burgos MD LAB MICROBIOLOGY - GENERAL ORDERABLES Final Result [facility] [address] [address] [place] [address] * (ABNORMAL) CBC with auto differential (07/27/2023 11:56 PM TOLL SERVICE OBSERVER) [facility] WBC 13.5(H) 3.8 - 9.9 K/cumm [facility] Hgb 9.7(L) 11.9 - 15.5 g/dL [facility] Hct 29.9(L) 35.6 - 45.5 % [facility] Plt 490(H) 150 - 400 K/cumm [facility] MPV 10.3 9.1 - 12.3 fL [facility] RBC 3.20(L) 3.90 - 5.20 M/cumm [facility] MCV 93.4 81.3 - 96.4 fL [facility] MCH 30.3 27.1 - 33.3 pg [facility] MCHC 32.4 32.3 - 35.7 g/dL [facility] RDW CV 13.5 11.1 - 14.9 % [facility] RDW SD 45.8 35.7 - 48.1 fL [facility] NRBC abs 0.00 0.00 - 0.01 K/cumm [facility] Blood 07/27/2023 11:5 6 PM TOLL SERVICE OBSERVER 07/27/2023 11:59 PM TOLL SERVICE OBSERVER Arie Burgos MD LAB BLOOD ORDERABLES Final Result [facility] [id number] [address] Department of Laboratories [place] [id number] documented in this encounter Visit Diagnoses Diagnosis Pain in left lower leg- Primary Chronic kidney disease, unspecified CKD stage Hypertension, unspecified type Anemia, unspecified type Gastritis without bleeding, unspecified chronicity, unspecified gastritis type documented in this encounter Administered Medications Inactive Administered Medications - up to 3 most recent administrations Medication Order MAR Action Action Date Dose Rate Site amLODIPine (NORVASC) tablet 10 mg 10 mg, oral, Once, On Thu07/28/23 at 0917, For 1 dose Given 07/28/2023 9:21 AM TOLL SERVICE OBSERVER 10 mg hydrALAZINE (APRESOLINE) injection 10 mg 10 mg, intravenous, Administer over 2 Minutes, Once, On Thu07/28/23 at 0846, For 1 dose Given 07/28/2023 8:53 AM TOLL SERVICE OBSERVER 10 mg documented in this encounter Active and Recently Administered Medications Times are shown in TOLL SERVICE OBSERVER. Scheduled Medication Order 07/26/2023 07/27/2023 07/28/2023 amLODIPine (NORVASC) tablet 10 mg (COMPLETED) 10 mg, oral, Once, On Thu07/28/23 at 0917, For 1 dose 0921 (Given - Provid er: Leslie Mendoza RN) hydrALAZINE (APRESOLINE) injection 10 mg (COMPLETED) 10 mg, intravenous, Administer over 2 Minutes, Once, On Thu07/28/23 at 0846, For 1 dose 0853 (Given - Provid er: Leslie Mendoza RN) documented in this encounter Orders Lab Orders Without Results Count Last Ordered D ate First Ordered Date POCT GLUCOSE DEVICE 3 07/28/2023 07/27/19 24 IV Count Last Ordered Date First Orde red Date SALINE LOCK IV 1 07/27/2023 documented in this encounter Additional Health Concerns Infection Onset Date Last Indicated Resolved Time COVID: Suspected 07/27/2023 07/27/2023 07/28/2023 12:57 AM TOLL SERVICE OBSERVER documented as of this encounter Care Teams Digital Field Service Technician Relationship Specialty Start Date End Date Cherelle Corcoran MD PCP - General Family Medicine 08/30/19 Mark Queen MD Consulting Physician Infectious Diseases 01/10/20 Rudolph Welch MD [address] [facility] [address] [place] [address] Consulting Physician Infectious Diseases 12/05/22 Markie Ryan MD [address] [facility] [address] [place] [address] Consulting Physician Nephrology 12/05/22 documented as of this encounter
--- OUTSIDE RECORDS SUMMARY | 2024-07-04 04:07 | XMS_ITS | Encounter Summary ---
Author Organization [facility] Healthcare Address [address] [place] [address] Care Team Providers Care Food Truck Caterer Name Role Phone Duane Callahan MD Primary Care Pro vider Mark Queen MD Unavailable [phone] Rudolph Welch MD Unavailable [phone] Markie Ryan MD Unavailable [phone] Reason for Referral * Consultation (Routine) - Closed Specialty Diagnoses / Procedures Referred By Contac t Referred To Contact Otolaryngology Diagnoses Hearing loss, unspecified hearing loss type, unspecified laterality Duane Callahan MD [address] [place] [address] Phone: tel: fax: Belén Arnold MD [address] [place] [address] [place] [address] Phone: tel: fax: Referral ID Status Reason Start Date Expiration Date V isits Requested Visits Authorized [id number] Closed Specialty Services Required 08/03/2023 09/01/2024 1 1 Question Answer Please select the performing region: [facility] (All Locations) [167] To provider: BELÉN ARNOLD [[id number]] # of visits: 1 OR TECHNOLOGIST Reason for Visit * Reason Comments Follow-up ER; 07/28/23; Earache Peng; Encounter Details Date Type Department Care Team ([facility] st Contact Info) Description 08/03/2023 3:30 PM SENIOR TECHNOLOGIST Office Visit [facility] Primary Care at [place] [id number] [facility] [address] [place] [address] Duane Callahan MD [address] [address] Hearing loss, unspecified hearing loss type, unspecified laterality (Primary Dx); Primary hypertension Social History Tobacco Use Types Packs/Day Years [...] 01/20/2023 How often do you attend chur or protestant services? 1 to 4 times per year 01/20/2023 Do you belong to any clubs o r organizations such as moravian groups, unions, fraternal or athletic groups, or [...] slept in a penitentiary (including now)? No 01/20/2023 Personal Safety Answer Date Recorded Have you ever been in or are you currently in a harmful physical or emotional relationship or is someone making you feel afraid or unsafe? Denies 07/27/2023 Comments No Sex and Gender Information Value Date Recorded Sex Assigned at Not on file Legal Sex Female 9:03 AM SENIOR TECHNOLOGIST Gender Identity Female 02/08/2020 6:39 PM CDT Sexual Orientation Not on file documented as of this encounter Last Filed Vital Signs Vital Sign Reading Time Taken Comments Blood Pressure 162/82 08/03/2023 3:33 PM SENIOR TECHNOLOGIST Pulse 78 08/03/2023 3:33 PM SENIOR TECHNOLOGIST Temperature 36.6 ??C (97.8 ??F) 08/03/2023 3:33 PM CS T Respiratory Rate 14 08/03/2023 3:33 PM SENIOR TECHNOLOGIST Oxygen Saturation 97% 08/03/2023 3:33 PM SENIOR TECHNOLOGIST Inhaled Oxygen Concentration - - Weight 58.2 kg (128 lb 6.4 oz) 08/03/2023 3:33 P M SENIOR TECHNOLOGIST Height 157.5 cm (5' 2.01 ) 08/03/2023 3:33 PM CS T Body Mass Index 23.48 08/03/2023 3:33 PM SENIOR TECHNOLOGIST documented in this encounter Ordered Prescriptions Prescription Sig Dispense Quantity Refills Last Filled Start Date End Date fluticasone propionate (FLONASE) 50 mcg/actuation nasal sprayIndications:H earing loss, unspecified hearing loss type, unspecified laterality Administer 2 sprays into each nostril daily 1 each 08/03/2023 4 amLODIPine (NORVASC) 5 mg tabletIndications: Primary hypertension Take 1 tablet (5 mg total) by mouth daily 30 tablet 1 08/03/2023 4 documented in this encounter Progress Notes * Duane Callahan MD - 08/03/2023 3:30 PM CST Images from the original note were not included. Assessment/Plan: Assessment/Plan Diagnoses and all orders for this visit: Hearing loss, unspecified hearing loss type, unspecified laterality (Primary) Comments: No evidence of AOM today Trial of flonase Referral to ENT Orders: - Ambulatory referral to ENT; Future - fluticasone propionate (FLONASE) 50 mcg/actuation nasal spray; Administer 2 sprays into each nostril daily Primary hypertension Assessment & Plan: BP uncontrolled Start 5mg amlodipine Orders: - amLODIPine (NORVASC) 5 mg tablet; Take 1 tablet (5 mg total) by mouth daily Return in about 4 weeks (around 08/31/2023) for Recheck ok for sda. or sooner as needed if symptoms not improving or worsen. Strict return/ED precautions discussed. Subjective: Barbara Chakraborty is a 72 y.o. female here for Chief Complaint Patient presents with Follow-up ER; 07/28/23; Earache Peng; Earache There is pain in both ears. This is a new problem. The current episode started 1 to 4 weeks ago. The problem occurs constantly. The problem has been rapidly worsening. There has been no fever. The fever has been present for Less than 1 day. The pain is at a severity of 4/10. Associated symptoms include hearing loss. Pertinent negatives include no abdominal pain, coughing, diarrhea, ear discharge,headaches, neck pain, rash, rhinorrhea, sore throat or vomiting. Recently treated for AOM with cefdinir, since then having trouble with hearing Seen in ED 2/ and found to have elevated blood pressure, started on 5mg amlodipine, but daughter stated she hasn't received Review of Systems HENT: Positive for ear pain and hearing loss. Negative for ear discharge, rhinorrhea and sore throat. Respiratory: Negative for cough. Cardiovascular: Negative for chest pain. Gastrointestinal: Negative for abdominal pain, diarrhea and vomiting. Musculoskeletal: Negative for neck pain. Skin: Negative for rash. Neurological: Negative for headaches. Objective: Vital signs were reviewed. Vitals: 08/03/23 1533 BP: 162/82 BP Location: Left arm Patient Position: Sitting Pulse: 78 Resp: 14 Temp: 36.6 ??C (97.8 ??F) SpO2: 97% Weight: 58.2 kg (128 lb 6.4 oz) Height: 157.5 cm (5' 2.01 ) Physical Exam Gen: NAD, comfortable, appears as stated age Eyes: no conjunctival injection, EOMI ENMT: external ears symmetric, R tympanic membranes within normal limits, Minimal erythema of L tympanic membranes with normal light reflex, non bulging CV: Regular rate Pulm: no increased work of breathing Skin: no rashes or nodules, warm and dry MSK/Neuro: symmetric limb movement Psych: alert and oriented to person Duane Callahan MD OR TECHNOLOGIST documented in this encounter Miscellaneous Notes * Assessment & Plan Note - Duane Callahan MD - 08/03/2023 4:02 PM CSTAssociated Problem(s): Primary hypertension BP uncontrolled Start 5mg amlodipine OR TECHNOLOGIST * Addendum Note - Duane Callahan MD - 08/03/2023 3:30 PM SENIOR TECHNOLOGIST Addended by: DUANE CALLAHAN on: 08/06/2023 05:55 AM Modules accepted: Level of Service OR TECHNOLOGIST documented in this encounter Plan of Treatment Upcoming Encounters Date Type Department Care Team (Latest Contact Info) Description 07/13/2024 9:00 AM SENIOR TECHNOLOGIST Hospital Encounter [facility] [address] [place] [address] Jaya Grier MD [address] [place] [address] [address] [place] [address] 07/13/2024 9:00 AM SENIOR TECHNOLOGIST - 07/13/2024 9:30 AM SENIOR TECHNOLOGIST Surgery [facility] [address] [place] [address] Jaya Grier MD [address] [place] [address] [address] [place] [address] ESOPHAGOGASTRODUODENOSCOPY Scheduled Procedures Name Priority Associated Diagnoses Date/Ti me ESOPHAGOGASTRODUODENOSCOPY Anemia, unspecified type Gastritis without bleeding, unspecified chronicity, unspecified gastritis type 07/13/2024 9:00 AM SENIOR TECHNOLOGIST COLONOSCOPY Iron deficiency anemia due to chronic blood loss Scheduled Referrals Name Type Priority Associated Diagnoses Orde r Schedule Ambulatory referral to ENT Outpatient Referral Routine Hearing loss, unspecified hearing loss type, unspecified laterality Expected: 08/17/2023 (Approximate), Expires: 08/03/2024 documented as of this encounter Visit Diagnoses Diagnosis Hearing loss, unspecified hearing loss type, unspecified laterality- Primary Primary hypertension Unspecified essential hypertension Anemia, unspecified type Gastritis without bleeding, unspecified chronicity, unspecified gastritis type documented in this encounter Discontinued Medications Medication Sig Discontinue Reason Start Date End Da te cefdinir (OMNICEF) 300 mg capsuleIndications:Acute cystitis with hematuria,Acute upper respiratory infection Take 1 capsule (300 mg total) by mouth daily for 10 days Therapy completed 07/24/2023 08/03/2023 amLODIPine (NORVASC) 10 mg tablet Take 0.5 tablets (5 mg total) by mouth daily Reorder 07/28/2023 08/03/2023 apixaban (ELIQUIS) 5 mg tabletIndications:Pain of left lower extremity Take 2 tablets (10 mg total) by mouth 2 (two) times a day for 7 days Therapy completed 07/24/2023 08/03/2023 valsartan (DIOVAN) 40 mg tablet Take 1 tablet (40 mg total) by mouth daily Therapy completed 04/07/2023 08/03/2023 documented as of this encounter Care Teams Food Truck Caterer Relationship Specialty Start Date End Date Duane Callahan MD PCP - General Family Medicine 08/30/19 Mark Queen MD Consulting Physician Infectious Diseases 01/10/20 Rudolph Welch MD [address] [facility] [address] [place] [address] Consulting Physician Infectious Diseases 12/05/22 Markie Ryan MD [address] [facility] [address] [place] [address] Consulting Physician Nephrology 12/05/22 documented as of this encounter
--- OUTSIDE RECORDS SUMMARY | 2024-07-04 04:07 | XMS_ITS | Encounter Summary ---
Author Organization [facility] Healthcare Address [address] [place] [address] Care Team Providers Care Makeup Artist Name Role Phone Duane Corcoran MD Primary Care Pro vider Mark Queen MD Unavailable [phone] Rudolph Welch MD Unavailable [phone] Markie Ryan MD Unavailable Dulce Vega RN Unavailable [phone] Jimbo Strauss MD Unavailable [phone] Reason for Referral * Consultation (Routine) - Authorized Specialty Diagnoses / Procedures Referred By Contac t Referred To Contact Diabetes and Nutrition Services Diagnoses Acute kidney injury superimposed on CKD ([place]) [place] [address] [facility] [address] [place] [address] Phone: tel: fax: [facility] [address] [place] [address] Referral ID Status Reason Start Date Expiration Date Visits Requested Visits Authorized [id number] Authorized Specialty Services Required 10/08/2023 11/06/2024 10 10 Question Answer [id number] Initial / Annual Follow-up MNT Please select the performing region: [facility] [145] # of visits: 10 Reason for Visit * Reason Comments Leg Swelling * Auth/Cert (Routine) Specialty Diagnoses / Procedures Referred By Maryse t Referred To Contact Diagnoses Leg swelling Acute renal failure superimposed on chronic kidney disease, unspecified acute renal failure type, unspecified CKD stage (HCC) Procedures na Referral ID Status Reason Start Date Expiration Date Visits Re quested Visits Authorized [id number] 1 1 Encounter Details Date Type Department Care Team (Latest Contact Info) Description 10/06/2023 10:07 PM CDT - 10/22/2023 1:50 PM CDT Hospital Encounter [facility] [address] [place] [address] [place] [address] [place] [address] [place] [address] [place] [address] [place] [address] [facility] [address] [place] [address] [place] [address] [facility] [address] [place] [address] [place] [address] [facility] [address] [place] [address] [place] [address] [facility] [address] [place] [address] Leg swelling (Primary Dx); Acute renal failure superimposed on chronic kidney disease, unspecified acute renal failure type, unspecified CKD stage (HCC); Diabetes mellitus with hyperglycemia (CMS/HCC) (HCC); Dyslipidemia; Acute on chronic diastolic congestive heart failure (CMS/HCC) (HCC); Acute kidney injury superimposed on CKD (HCC); Type 2 diabetes mellitus without complication, unspecified whether long term acute care registered nurse insulin use (HCC) Discharge Disposition: Discharge to SNF Social History Tobacco Use Types Packs/Day Years Used Date Smoking Tobacco: Never Smokeless Tobacco: Never Alcohol Use Standard Drinks/Week Comments Not Currently 0 (1 standard drink = 0.6 oz pur e alcohol) [facility] Utilities [...] often do you attend chur ch or scientology services? 1 to 4 times per year 10/08/2023 Do you belong to any clubs o r organizations such as hinduism groups, unions, fraternal or athletic groups, or [...] slept in a chcf (including now)? No 10/08/2023 Personal Safety Answer Date Recorded Have you ever been in or are you currently in a harmful physical or emotional relationship or is someone making you feel afraid or unsafe? 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 Gender Identity Female 02/08/2020 6:39 PM CDT Sexual Orientation Not on file documented as of this encounter Last Filed Vital Signs Vital Sign Reading Time Taken Comments Blood Pressure 125/58 10/22/2023 10:25 AM CDT Pulse 56 10/22/2023 10:25 AM CDT Temperature 36.7 ??C (98 ??F) 10/22/2023 10: 25 AM CDT Respiratory Rate 18 10/22/2023 10:2 5 AM CDT Oxygen Saturation 98% 10/22/2023 3:52 AM CDT Inhaled Oxygen Concentration - - Weight 61.6 kg (135 lb 12.8 oz) 10/15/2023 5:00 PM CDT Height 157.5 cm (5' 2.01 ) 10/07/2023 4:50 PM CD T Body Mass Index 24.83 10/07/2023 4:50 PM CDT documented in this encounter Discharge Summaries * Zhang Mendez MD - 10/22/2023 9:19 AM CDT Inpatient Discharge Summary Patient Name - Sixto Chakraborty Patient Age - 72 yrs Patient - [id number] [facility] - [id number] Document Creation Date: 10/22/2023 Admitting Provider, : Gemma Jolly MD Discharge Provider, : Zhang Mendez MD Primary Care Physician at Discharge: Duane Corcoran MD [phone] Consult followed during hospitalization: Nephrology consult with Dr. Strauss/Dr. Wong Cardiology consult to [facility] Neurology consult with Dr. Vern Howe and group. Psychiatrist consult with [facility]. Admission Date: 10/06/2023 Discharge Date/time: 10/22/2023 Admission Location: [facility] [place] LOS - LOS: 15 days DETAILS OF HOSPITAL STAY Hospital Problems/Diagnoses Principal Problem: Acute on chronic diastolic congestive heart failure (CMS/HCC) ([facility]) Active Problems: Diabetic neuropathy ([facility]) Type 2 diabetes mellitus with diabetic neuropathy, with long-term current use of insulin (HCC) Primary hypertension Gastroesophageal reflux disease without esophagitis Mixed hyperlipidemia Schizoaffective disorder, bipolar type (CMS/HCC) (HCC) Anemia in stage 4 chronic kidney disease (HCC) Acute kidney injury superimposed on CKD (HCC) Leg swelling Diabetes mellitus with hyperglycemia (CMS/HCC) (HCC) Dyslipidemia Alzheimer's dementia ([facility]) Reason for Hospitalization: Lower extremity edema presented on the left. Hospital Course: Patient is a 72-year-old female with history of hypertension, hyperlipidemia, diabetes mellitus type 2/diabetic neuropathy, history of HFpEF, dementia, arthritis, depression, chronic kidney disease stage 4, schizophrenia, and history of osteomyelitis. Patient presented to the emergency room on October 06, 2023 with chief complaint of lower extremity edema. Patient was admitted through the emergency room on October 07, [address] Jolly, patient was seen H&P done with our nurse practitioner Ms. Jade on October 07, 2023, then patient was followed with on October 08, 2023 till October 13, 2023, the patient was followed with Dr. Gamboa on October 14, 2023 till October 16, 2023, at and Dr. Adames resumed patient care on October 17, 2023, the patient resumed care by Dr. Gamboa on 02/09/2024 till October 19, [address] Meza started the patient on October 21, 2023. Patient followed with Nephrology consult, Cardiology consult to [facility], Neurology consult, psychiatrist consult. S/P Acute on chronic diastolic congestive heart failure: Presented on the admission with volume overload. Volume stabilized with hemodialysis. Compensated. Followed with cardiology consult. End-stage renal disease: Presented with acute on chronic kidney disease. Continue current hemodialysis schedule. New dialysis patient. Outpatient dialysis being set up. Patient followed with Nephrology consult. Essential hypertension: Continue with Lopressor 25 mg 1 tablet twice a day. Continue monitoring blood pressure closely. Hyperlipidemia: Continue with atorvastatin 20 mg 1 tablet q.h.s.. Diabetes mellitus type 2: Patient currently on insulin Lantus 15 units subQ q.h.s., insulin lispro/Humalog 5 units subQ 3 times daily with meals. Continue with diabetic diet, and insulin sliding scale. Schizoaffective disorder: Patient currently on benztropine 1.5 mg 1 tablet q.h.s., risperidone 1 mg q.h.s.. Patient followed with cardiology consult with [facility], Nephrology consult with Dr. Strauss/Dr. Wong, neurology consult with Dr. Vern Henning, and psychiatrist consult with [facility] . Patient followed with physical therapy, and occupational therapy and recommending custodial facility. Patient followed with social service/director case management and arrangement done for patient to be transferred to [facility] for SNF. Arrangement for transportation done for today on October 22, 2023 around 1:00 p.m.. Patient will follow with primary care physician at the facility. Encouraged to follow with Nephrology consult to resume with her hemodialysis as scheduled and to follow with cardiology group with [facility] as an outpatient. Discharge Details Physical Exam at Discharge: Discharge Condition: stable Pulse: 60 Resp: 18 BP: 136/65 Temp: 36.6 ??C (97.9 ??F) Weight: 61.6 kg (135 lb 12.8 oz) Physical exam: Gen: Patient is a 72-year-old female in NAD HEENT: Positive conjunctival pallor Neck: Supple, no JVD Resp: Poor effort with decreased breathing sound at bases CV: S1, S2, RRR, over 6 systolic GI: +BS, Soft, no abdominal tender MSK: Decreased lower extremity edema Skin: No rashes Neuro: Patient was awake earlier today, able to respond only to some orientation questions. Psych: Appropriate mood and affect Discharge Disposition: Discharge to SNF Code Status at Discharge: Full Code Allergies: Patient has no known allergies. Discharge Medications: Your medication list START taking these medications Instructions Last Dose Given Next Dose Due calcium acetate(phosphat bind) 667 mg capsule Commonly known as: PHOSLO Take 1 capsule (667 mg total) by mouth 3 (three) times a day with meals metoprolol tartrate 25 mg immediate release tablet Commonly known as: LOPRESSOR Take 0.25 tablets (6.25 mg total) by mouth 2 (two) times a day OLANZapine 2.5 mg tablet Commonly known as: ZyPREXA Take 1 tablet (2.5 mg total) by mouth 2 (two) times a day as needed (psychosis) polyethylene glycol 17 gram/dose bulk powder Commonly known as: MIRALAX Take 17 g by mouth daily as needed (Constipation) ramelteon 8 mg tablet Commonly known as: ROZEREM Take 1 tablet (8 mg total) by mouth nightly as needed for sleep CHANGE how you take these medications Instructions Last Dose Given Next Dose Due benztropine 1 mg tablet Commonly known as: COGENTIN What changed: when to take this Take 1.5 tablets (1.5 mg total) by mouth nightly insulin glargine 100 unit/mL (3 mL) pen for injection Doctor's comments: May substitute alternate covered basal insulin in pen. Commonly known as: LANT, MARCIA GREENE What changed: how much to take Inject 15 Units under the skin nightly risperiDONE 1 mg tablet Commonly known as: RisperDAL What changed: medication strength how much to take Take 1 tablet (1 mg total) by mouth nightly CONTINUE taking these medications Instructions Last Dose Given Next Dose Due acetaminophen 325 mg tablet Commonly known as: TYLENOL Take 2 tablets (650 mg total) by mouth every 6 (six) hours as needed for pain atorvastatin 20 mg tablet Commonly known as: LIPITOR Take 1 tablet (20 mg total) by mouth nightly famotidine 10 mg tablet Commonly known as: PEPCID Take 1 tablet (10 mg total) by mouth daily ferrous sulfate 325 mg (65 mg of elemental iron) tablet Take 1 tablet (65 mg of elemental iron total) by mouth 2 (two) times a day flash glucose scanning reader [facility] Use Madhav 3 reader to scan Madhav 3 sensor fluticasone propionate 50 mcg/actuation nasal spray Commonly known as: FLONASE Administer 2 sprays into each nostril daily FreeStyle Madhav 2 Sensor kit Doctor's comments: Type 2 diabetic, on 2 insulin Generic drug: flash glucose sensor Use to continually monitor glucose, change every 14 days FreeStyle Madhav 3 Sensor device Generic drug: blood-glucose sensor Use for continuous glucose monitoring. Change sensor every 14 days insulin lispro 100 unit/mL vial for injection Commonly known as: HumaLOG, ADMELOG Inject 4 Units under the skin 3 (three) times a day before meals Gets 4 units at baseline then 1 unit for every 50 over 150 lidocaine 4 % adhesive patch,medicated Commonly known as: ASPERCREME Place 1 patch on the skin daily as needed to lower back pen needle, diabetic 32 gauge x 5/32 needle 1 Units 4 (four) times a day STOP taking these medications amLODIPine 10 mg tablet Commonly known as: NORVASC Where to Get Your Medications You can get these medications from any pharmacy Bring a paper prescription for each of these medications OLANZapine 2.5 mg tablet polyethylene glycol 17 gram/dose bulk powder ramelteon 8 mg tablet Information about where to get these medications is not yet available Ask your nurse or doctor about these medications calcium acetate(phosphat bind) 667 mg capsule insulin glargine 100 unit/mL (3 mL) pen for injection metoprolol tartrate 25 mg immediate release tablet risperiDONE 1 mg tablet Time Spent in Discharge Process: I have spent 34 minutes on discharge planning activities. Outpatient Follow-Up: Future Appointments Date Time Provider Department Center 11/02/2023 4:00 PM Smith Gibbs MD EML BW4 [facility] EML 11/04/2023 3:30 PM Dulce Luis [facility] 11/04/2023 4:00 PM Brigid Nolasco NP CLN [facility] 11/10/2023 4:15 PM Duane Corcoran MD PCP 210 PC 12/02/2023 3:00 PM Adryan Swenson MD [facility] PSY Specialty 12/31/2023 2:45 PM Santo Vail MD [facility] CAR 2940 Specialty Contact Information for Follow-ups [place] [facility] [phone] Next Steps: Follow up Instructions: Mental health hotline available 24 hours day, seven days a week. Duane Corcoran MD Specialty: Family Medicine Relationship: PCP - General [address] [place] [address] Next Steps: Schedule an appointment as soon as possible for a visit in 1 week(s) Duane Corcoran MD Specialty: Family Medicine [address] [place] [address] Next Steps: Follow up Comments: For primary care physician at [facility] as soon as possible. Questions: To provider: DUANE CORCORAN Suresh, MD Specialty: Nephrology, Internal Medicine Relationship: Consulting Physician [address] [address] Next Steps: Follow up Comments: To resume with her hemodialysis as an outpatient at [facility]. Questions: To provider: JIMBO STRAUSS Please schedule an appointment with the following provider(s): [place] [facility] [phone] Follow up Mental health hotline available 24 hours day, seven days a week. Duane Corcoran MD [address] [place] [phone] Schedule an appointment as soon as possible for a visit in 1 week(s) Duane Corcoran MD [address] [place] [phone] [place] [address] [address] ANCILLARY INFORMATION Other Procedures & Diagnostic Tests: ECG 12 lead Result Date: 10/07/2023 Vent Rate: 74 bpm RR Interval: 801 msec OK Interval: 163 msec QRS Duration: 72 msec QT Interval: 389 msec QTC Interval: 417 msec P-R-T [place]: 62 - 20 - 207 degrees IMPRESSION: SINUS RHYTHM NONSPECIFICT-WAVE ABNORMALITY Electronically Signed By: Ilan Ghotra MD, [facility] Recent Labs: Recent Labs Lab Units 10/22/2362710/19/23 0910/17/23 0930 WBC K/cumm 7.8 8.0 8.5 HEMOGLOBIN g/dL 8.0* 8.8* 8.2* HEMATOCRIT % 25.2* 27.9* 25.9* PLATELETS K/cumm 206 259 253 Recent Labs Lab Units 10/22/2362710/19/23 0910/17/23 0930 WBC K/cumm 7.8 8.0 8.5 HEMOGLOBIN g/dL 8.0* 8.8* 8.2* HEMATOCRIT % 25.2* 27.9* 25.9* PLATELETS K/cumm 206 259 253 NEUTROS PCT % 52.3 -- -- LYMPHS PCT % 36.1 -- -- MONOS PCT % 8.4 -- -- EOS PCT % 2.4 -- -- Recent Labs Lab Units 10/22/2362710/20/2374210/20/2370910/19/2374910/19/23 0723 SODIUM mmol/L 136 -- 132* -- 138 POTASSIUM PLASMA mmol/L 4.5 -- 4.5 -- 4.5 CHLORIDE mmol/L 102 -- 97 -- 103 CO2 mmol/L 22 -- 28 -- 27 BUN SERUM mg/dL 60* -- 30* -- 48* CREATININE mg/dL 4.69* -- 3.14* -- 4.08* QJQ-GNR-QTAOBIN mL/min/1.73 m2 9* -- 15* -- 11* GLUCOSE mg/dL 190 -- 99 -- 109 POC GLUCOSE MONITOR -- < > -- < > -- CALCIUM mg/dL 8.9 -- 8.8 -- 9.2 ALBUMIN g/dL 2.8* -- 2.8* -- 3.0* PHOSPHORUS PLASMA mg/dL 4.3 -- 3.5 -- 4.5 < > = values in this interval not displayed. Recent Labs Lab Units 10/22/2362710/22/2321010/21/23210510/20/2374210/20/2370910/19/23 07510/19/23 0723 SODIUM mmol/L 136 -- -- -- 132* -- 138 POTASSIUM PLASMA mmol/L 4.5 -- -- -- 4.5 -- 4.5 CHLORIDE mmol/L 102 -- -- -- 97 -- 103 CO2 mmol/L 22 -- -- -- 28 -- 27 ANIONGAP mmol/L 12 -- -- -- 7 -- 8 GLUCOSE mg/dL 190 -- -- -- 99 -- 109 POC GLUCOSE MONITOR mg/dL -- 236* 197 < > -- < > -- BUN SERUM mg/dL 60* -- -- -- 30* -- 48* CREATININE mg/dL 4.69* -- -- -- 3.14* -- 4.08* CALCIUM mg/dL 8.9 -- -- -- 8.8 -- 9.2 ALBUMIN g/dL 2.8* -- -- -- 2.8* -- 3.0* < > = values in this interval not displayed. 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: [email or web address] Lot number: [id number] As of 10/15/2023 Status: Implanted Isolation Status: No active isolations Nutritional Status and in-house recommendations: Dietary Orders (From admission, onward) Start Ordered 10/19/23 2100 Snacks At bedtime Comments: Provide Gelatein ONS even if Glu reading is >100 10/19/23 1511 10/15/23 1208 Adult Diet Restricted; Low Fat, Low Chol, Low Na, 2 GM Sodium; Consistent Carb 1600 chanelle; Renal; 1500mL = Diet 1050/Nursing 450 Diet effective now Question Answer Comment (CH) Diet type Restricted Fat / Sodium Restriction: Low Fat, Low Chol, Low Na Fat / Sodium Restriction: 2 GM Sodium Diabetic: Consistent Carb 1600 chanelle Renal: Renal Fluid restriction dietary / 24h: 1500mL = Diet 1050/Nursing 450 10/15/23 1207 Anticoagulation Indication: INR: 10/15/2023: 1.05 Warfarin Administrations (last 168 hours) None Oxygen Status: O2 Therapy for the past 12 hrs: O2 Therapy 10/22/23 0352 None (Room air) Peripheral IV 10/12/23 22 G Left;Posterior Hand (Active) Placement Date/Time: 10/12/23 1647 Size (Gauge): 22 G Location Orientation: Left;Posterior Location: Hand Patient Emergency Contact: Primary Emergency Contact: Areli Gayle, Immunization Status at Discharge Immunization History Administered Date(s) Administered Influenza Nasal, Unspecified 04/17/2017 Influenza, Quadrivalent, High Dose, Preservative Free, Intrr 04/02/2020, 03/07/2021, 04/01/2022, 08/07/2022 Influenza, Trivalent, Adjuvanted, Intramuscular 04/06/2019 Influenza, Trivalent, Intramuscular 04/17/2017 Pfizer SARS-CoV-2 Monovalent Vaccination (12+ Yrs) PURPLE 09/22/2020, 10/13/2020, 06/11/2021 Pneumococcal Conjugate PCV 13 03/31/2017 Pneumococcal Polysaccharide PPV23 01/20/2019 Signed: Zhang Mendez MD Hospitalist 10/22/2023 9:57 AM documented in this encounter Discharge Instructions * Discharge Instructions* Lulú Recio M.A. - 10/17/2023 6:00 PM CDT MENTAL HEALTH CRISIS/URGENT CARE SERVICES National Suicide Prevention Hotline (Available by calling or texting 138 to speak with a counselor for support or additional resources) Behavioral Health Response [phone] or [phone] (Crisis hotline or additional resources) [facility] Behavioral Health [phone] (Crisis hotline) [facility] Behavioral Health Urgent Care [phone] (walk in urgent care for mental health) Thursday - Thursday 9am- 7pm [facility]- In [facility] [phone] [address] [place] [address] MOBILE OUTREACH SERVICES TO ASSIST IN LOCATING OUTPATIENT CARE FOR MENTAL HEALTH Behavioral Health Response [phone] (Contact and request a mobile outreach to establish community mental health care for [facility]) Disaster Hotline (Contact to request assistance in establishing community mental health care in [facility]) COMMUNITY MENTAL HEALTH CENTERS FOR UNINSURED OR MEDICAID [facility] Behavioral Health [phone] ([facility], [facility], [facility], [facility], and [facility]) [place] [phone] ([facility]) [facility] [phone] ([facility]) [facility] ([facility]) [facility] [phone] ([facility]) [place] [phone] ([place] [facility]) Intensive Outpatient Programs: Your insurance company will be able to provide more options if desired. Call the customer service number on the back of insurance card. [facility] Medicine [place] [phone] [address] [place], [place] Adults, Adolescents, Children [facility] [phone] Adults, Geriatrics, Adolescents [facility] [phone] [address] [place], [place] Adults, Geriatrics, Adolescents [facility] [phone] [place] [address] [place] [address] Adults, Adolescents [employer] [phone] Virtual, Adults [facility] [phone] [place] [address] Adults * Discharge Instr - Diet* Asmita Calderon - 10/08/2023 10:45 AM CDT You will need to limit the amount of carbohydrates, potassium, phosphorus, sodium, and fluid that you consume every day. Have 3 daily meals with about 75 grams of carbohydrate at each one, avoid skipping any meals. Limit foods such as fast food items, fried/breaded foods, canned goods, deli meats, gravies/sauces,bananas, potatoes, tomatoes, oranges, turkey, and chocolate. Avoid drinking any sugary drinks like lemonade, regular soda, gatorade, and sweet tea. You should also limit drinking orange juice, tomato juice, milk, and dark diet sodas because they are higher in phosphorus and potassium. Follow any fluid restrictions recommended by your doctor. Do not use salt substitutes because they typically contain high amounts of potassium. Keep your salt shaker away from your table and don't add extra to your food. Drink 1-2 Nepro daily ,or another high protein supplement, to help replace the protein lost during dialysis. Monitor your blood sugar and take all medication as directed by your doctor. Call [phone] to speak with a [facility] registered dietitian about any nutrition related concerns after discharge. For any other questions you can call and ask to be connected to the floor that you were discharged from. documented in this encounter Medications at Time [...] sensor 1 each 06/30/2023 FreeStyle Madhav 3 [place] misc Use Madhav 3 reader to scan [...] use of insulin ([facility]) Use to continually monitor glucose, change [...] Refills Last Filled Start Date End Date polyethylene glycol (MIRALAX) 17 gram/dose bulk powder Take 17 g by mouth daily as needed (Constipation ) 595 g 10/22/2023 ramelteon (ROZEREM) 8 mg tablet Take 1 tablet (8 mg total) by mouth nightly as needed for sleep 10 tablet 10/22/2023 4 OLANZapine (ZyPREXA) 2.5 mg tablet Take 1 tablet (2.5 mg total) by mouth 2 (two) times a day as needed (psychosis) 20 tablet 10/22/2023 4 metoprolol tartrate (LOPRESSOR) 25 mg immediate release tablet Take 0.25 tablets (6.25 mg total) by mouth 2 (two) times a day 10/22/2023 4 calcium acetate,phosphat bind, (PHOSLO) 667 mg capsule Take 1 capsule (667 mg total) by mouth 3 (three) times a day with meals 10/22/2023 4 risperiDONE (RisperDAL) 1 mg tablet Take 1 tablet (1 mg total) by mouth nightly 10/22/2023 4 insulin glargine 100 unit/mL (3 mL) pen for injection Inject 15 Units under the skin nightly 10/22/2023 4 documented in this encounter Discharge Disposition Disposition Code Departure Means Destination Comment s Discharge to [facility] Ambulance Discharged to [facility] documented in this encounter Progress Notes * Anil Wong MD - 10/22/2023 12:03 PM CDT Nephrology Daily Progress [facility]# [id number] SS#: [id number] Phone#: [phone] #: 1950 Subjective Interval History: Alert, confused. Objective Vitals: 24hr Min/Max: Temp Min: 36.6 ??C (97.9 ??F) Max: 36.9 ??C (98.5 ??F) Pulse Min: 56 Max: 69 BP Min: 125/58 Max: 164/65 Resp Min: 18 Max: 20 SpO2 Min: 97 % Max: 99 % Intake/Output Summary (Last 24 hours) at 10/22/2023 1203 Last data filed at 10/22/2023 1025 Gross per 24 hour Intake 1220 ml Output 1066 ml Net 154 ml Wt Readings from Last 3 Encounters: 10/15/23 61.6 kg (135 lb 12.8 oz) 09/03/23 58.5 kg (129 lb) 08/03/23 58.2 kg (128 lb 6.4 oz) Temp Av.7 ??C (98.1 ??F) Min: 36.6 ??C (97.9 ??F) Max: 36.9 ??C (98.5 ??F) BP Min: 125/58 Max: 164/65 Pulse Av.7 Min: 56 Max: 69 Resp Av.2 Min: 18 Max: 20 SpO2 Av % Min: 97 % Max: 99 % Most Recent: Vitals: 10/22/23 1025 BP: 125/58 Pulse: 56 Resp: 18 Temp: 36.7 ??C (98 ??F) SpO2: I/O last 2 completed shifts: In: 960 [P.O.:960] Out: 0 I/O this shift: In: 500 [Other:500] Out: 1066 [Other:1066] Current Facility-Administered Medications Medication Dose Route Frequency Last Rate Last Admin acetaminophen (TYLENOL) tablet 650 mg 650 mg oral Q6H PRN 650 mg at 10/19/232049 albumin 25 % bottle 25 g 25 g intravenous PRN atorvastatin (LIPITOR) tablet 20 mg 20 mg oral Nightly 20 mg at 10/21/232107 benztropine (COGENTIN) tablet 1.5 mg 1.5 mg oral Nightly 1.5 mg at 10/21/232107 calcium acetate(phosphat bind) (PHOSLO) capsule 667 mg 667 mg oral TID with meals 667 mg at 10/21/231818 dextrose oral liquid liquid 15 g 15 g oral Q15 Min PRN Or dextrose (D10W) 10% bolus 250 mL 250 mL intravenous Q15 Min PRN enoxaparin (LOVENOX) syringe 30 mg 30 mg subcutaneous Daily-2100 30 mg at 10/21/232106 famotidine (PEPCID) tablet 10 mg 10 mg oral Daily 10 mg at 10/21/23902 ferrous sulfate delayed release tablet 65 mg of elemental iron 65 mg of elemental iron oral BID 65 mg of elemental iron at 10/21/232107 fluticasone propionate (FLONASE) 50 mcg/actuation nasal spray 2 spray 2 spray each nostril Daily 2 spray at 10/21/23903 glucagon injection 1 mg 1 mg intramuscular Q30 Min PRN insulin glargine (LANTUS, SEMGLEE) 100 unit/mL injection 15 Units 0.25 Units/kg subcutaneous Nightly 15 Units at 10/21/232106 insulin lispro (HumaLOG, ADMELOG) 100 unit/mL injection 0-10 Units 0-10 Units subcutaneous TID withmeals 2 Units at 10/20/231802 insulin lispro (HumaLOG, ADMELOG) 100 unit/mL injection 0-5 Units 0-5 Units subcutaneous Nightly 1 Units at 10/21/232114 insulin lispro (HumaLOG, ADMELOG) 100 unit/mL injection 5 Units 0.083 Units/kg subcutaneous TID with meals 5 Units at 10/21/231819 metoprolol tartrate (LOPRESSOR) immediate release split tablet 6.25 mg 6.25 mg oral BID 6.25 mg at 10/21/232107 OLANZapine (ZyPREXA) 2.5 mg in sterile water 0.5 mL (5 mg/mL) syringe 2.5 mg intramuscular Q12H PRN OLANZapine (ZyPREXA) tablet 2.5 mg 2.5 mg oral BID PRN ondansetron (ZOFRAN) injection 4 mg 4 mg intravenous Q6H PRN polyethylene glycol (MIRALAX) packet 17 g 17 g oral Daily 17 g at 10/21/23 09 ramelteon (ROZEREM) tablet 8 mg 8 mg oral Nightly PRN 8 mg at 10/21/232107 risperiDONE (RisperDAL) tablet 1 mg 1 mg oral Nightly 1 mg at 10/21/232107 Continuous Medications Medication Dose Last Rate Physical Exam: General Appearance: Alert, cooperative, confused Lungs: Decreased breath sounds bilaterally Cardiovascular: Regular rate and rhythm, S1 and S2 normal, no rub or gallop Abdomen: Soft, non-tender, non-distended Extremities: Extremities normal, no LE edema Psychosocial: Normal affect and mood Lab/Radiology/Diagnostic Review: Recent Labs Lab Units 10/22/23 1135 10/22/23 0628 10/20/23 0743 10/20/23 0710 10/19/23 0750 10/19/23 0723 SODIUM mmol/L -- 136 -- 132* -- 138 POTASSIUM PLASMA mmol/L -- 4.5 -- 4.5 -- 4.5 CHLORIDE mmol/L -- 102 -- 97 -- 103 CO2 mmol/L -- 22 -- 28 -- 27 BUN SERUM mg/dL -- 60* -- 30* -- 48* CREATININE mg/dL -- 4.69* -- 3.14* -- 4.08* [id number] mL/min/1.73 m2 -- 9* -- 15* -- 11* GLUCOSE mg/dL -- 190 -- 99 -- 109 POC GLUCOSE MONITOR mg/dL 263* -- < > -- < > -- CALCIUM mg/dL -- 8.9 -- 8.8 -- 9.2 ALBUMIN g/dL -- 2.8* -- 2.8* -- 3.0* PHOSPHORUS PLASMA mg/dL -- 4.3 -- 3.5 -- 4.5 < > = values in this interval not displayed. Additional Labs: Recent Labs Lab Units 10/22/23 0628 10/19/23 0920 10/17/23 0930 WBC K/cumm 7.8 8.0 8.5 HEMOGLOBIN g/dL 8.0* 8.8* 8.2* HEMATOCRIT % 25.2* 27.9* 25.9* PLATELETS K/cumm 206 259 253 NEUTROS PCT % 52.3 -- -- LYMPHS PCT % 36.1 -- -- MONOS PCT % 8.4 -- -- EOS PCT % 2.4 -- -- )Assessment/Plan 1. ESRD: next dialysis tomorrow 2. Hypertension 3. Edema: better. Diuretics on hold 4. Metabolic acidosis: Due to renal failure. 5. Hyperphosphatemia Case discussed with 2 daughters at the bedside. * William Velasquez MD - 10/22/2023 10:19 AM CDT Daily Progress [facility] Cardiology Subjective: Undergoing dialysis this morning no acute events overnight. Supposed to be discharged today after dialysis OBJECTIVE: Past Medical History: Diagnosis Date Anemia Arthritis CHF (congestive heart failure) (CMS/HCC) (HCC) Dementia (HCC) Depression Diabetic neuropathy (HCC) GERD (gastroesophageal reflux disease) HL (hearing loss) Hyperlipidemia Hypertension Movement disorder Osteomyelitis (HCC) Renal disorder Schizophrenia (HCC) Type 2 diabetes mellitus (HCC) Family History Problem Relation Age of Onset Diabetes Mother Heart disease Mother Kidney disease Mother Stomach cancer Father Alcohol abuse Father Diabetes Sister Diabetes Sister Diabetes Brother Scheduled Medications Medication Dose Route Frequency atorvastatin (LIPITOR) tablet 20 mg 20 mg oral Nightly benztropine (COGENTIN) tablet 1.5 mg 1.5 mg oral Nightly calcium acetate(phosphat bind) (PHOSLO) capsule 667 mg 667 mg oral TID with meals enoxaparin (LOVENOX) syringe 30 mg 30 mg subcutaneous Daily-2100 famotidine (PEPCID) tablet 10 mg 10 mg oral Daily ferrous sulfate delayed release tablet 65 mg of elemental iron 65 mg of elemental iron oral BID fluticasone propionate (FLONASE) 50 mcg/actuation nasal spray 2 spray 2 spray each nostril Daily insulin glargine (LANTUS, SEMGLEE) 100 unit/mL injection 15 Units 0.25 Units/kg subcutaneous Nightly insulin lispro (HumaLOG, ADMELOG) 100 unit/mL injection 0-10 Units 0-10 Units subcutaneous TID withmeals insulin lispro (HumaLOG, ADMELOG) 100 unit/mL injection 0-5 Units 0-5 Units subcutaneous Nightly insulin lispro (HumaLOG, ADMELOG) 100 unit/mL injection 5 Units 0.083 Units/kg subcutaneous TID with meals metoprolol tartrate (LOPRESSOR) immediate release split tablet 6.25 mg 6.25 mg oral BID polyethylene glycol (MIRALAX) packet 17 g 17 g oral Daily risperiDONE (RisperDAL) tablet 1 mg 1 mg oral Nightly Exam: Gen: Comfortable, NAD CVS: RRR, S1, S2 present, systolic murmur GI: Soft Non tender Chest: Air entry reduced CTAB Psych: Appropriate mood and affect Neuro: Alert, oriented, No deficits. Recent Labs Lab Units 10/22/23 0628 10/19/23 0920 10/17/23 0930 WBC K/cumm 7.8 8.0 8.5 HEMOGLOBIN g/dL 8.0* 8.8* 8.2* HEMATOCRIT % 25.2* 27.9* 25.9* PLATELETS K/cumm 206 259 253 Recent Labs Lab Units 10/22/23 0628 10/22/23 0211 10/21/23 2106 10/21/23 1741 10/21/23 1210 10/20/23 0743 10/20/23 0710 10/19/23 0750 10/19/23 0723 10/18/23 0737 10/18/23 0653 10/17/23 1341 10/17/23 0857 SODIUM mmol/L 136 -- -- -- -- -- 132* -- 138 -- 137 -- 135 POTASSIUM PLASMA mmol/L 4.5 -- -- -- -- -- 4.5 -- 4.5 -- 4.3 -- 4.0 CHLORIDE mmol/L 102 -- -- -- -- -- 97 -- 103 -- 100 -- 96* CO2 mmol/L 22 -- -- -- -- -- 28 -- 27 -- 27 -- 28 ANIONGAP mmol/L 12 -- -- -- -- -- 7 -- 8 -- 10 -- 11 GLUCOSE mg/dL 190 -- -- -- -- -- 99 -- 109 -- 94 -- 177 POC GLUCOSE MONITOR mg/dL -- 236* 197 116 108 < > -- < > -- < > -- < > -- BUN SERUM mg/dL 60* -- -- -- -- -- 30* -- 48* -- 28* -- 39* CREATININE mg/dL 4.69* -- -- -- -- -- 3.14* -- 4.08* -- 3.07* -- 3.81* CALCIUM mg/dL 8.9 -- -- -- -- -- 8.8 -- 9.2 -- 9.0 -- 8.8 ALBUMIN g/dL 2.8* -- -- -- -- -- 2.8* -- 3.0* -- 2.9* -- 2.9* < > = values in this interval not displayed. Intake/Output Summary (Last 24 hours) at 10/22/2023 1019 Last data filed at 10/21/2023 2100 Gross per 24 hour Intake 720 ml Output 0 ml Net 720 ml Vitals: 10/21/23 1924 10/21/23 2349 10/22/23 0352 10/22/23 0745 BP: 164/65 135/69 150/75 136/65 BP Location: Right arm Patient Position: HOB 30 degrees Pulse: 69 58 64 60 Resp: 19 20 20 18 Temp: 36.8 ??C (98.3 ??F) 36.6 ??C (97.9 ??F) 36.6 ??C (97.9 ??F) TempSrc: Oral Oral Temporal SpO2: 98% 97% 98% Weight: Height: ASSESSMENT/PLAN: Patient Active Problem List Diagnosis Diabetic neuropathy (HCC) Type 2 diabetes mellitus with diabetic neuropathy, with long-term current use of insulin (HCC) Primary hypertension Amputation of toe of right foot ([facility]) ([facility]) Iron deficiency anemia Gastroesophageal reflux disease without esophagitis Mixed hyperlipidemia Schizoaffective disorder, bipolar type ([facility]) (HCC) 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 2 diabetes mellitus ([facility]) ([facility]) Encounter for Medicare annual wellness exam Late onset Alzheimer's dementia without behavioral disturbance (HCC) Volume overload Anemia Toe necrosis ([facility]) ([facility]) Physical deconditioning Left leg DVT ([facility]) Pulmonary nodule Retention of urine, unspecified Unspecified osteoarthritis, unspecified site Unsteadiness on feet Weakness Parkinsonism (HCC) Wheezing Anemia in stage 4 chronic kidney disease (HCC) Osteomyelitis of great toe of right foot (CMS/HCC) (HCC) Abnormal urinalysis Acute kidney injury superimposed on CKD (HCC) Acute on chronic diastolic congestive heart failure (CMS/HCC) (HCC) Bibasilar consolidations Movement disorder Shortness of breath GI bleed Bandemia Leg swelling Diabetes mellitus with hyperglycemia (CMS/HCC) (HCC) Dyslipidemia Alzheimer's dementia (HCC) Acute on chronic diastolic heart failure - due to CKD stage 4 on IV diuresis as per Nephrology - on dialysis for volume management - normal LV function on recent echocardiogram - moderate pulmonary hypertension likely due to left-sided heart failure Elevated troponin due to renal dysfunction - does not represent ACS - nonischemic MPI recently Essential hypertension -BP stable Diabetes mellitus type 2 Iron deficiency anemia - hemoglobin stable AMS on presentation - appears to be at baseline, she has Alzheimer's disease William Velasquez MD, [facility], [facility], [facility] [phone] 10/22/2023 10:19 AM * Sarahy Liao PTA - 10/22/2023 9:59 AM CDT Physical Therapy NO THERAPY CHARGE Patient off the floor for dialysis. Sarahy Liao PTA 10/22/23 9:59 AM * Anil Wong MD - 10/21/2023 5:59 PM CDT Nephrology Daily Progress [facility]# [id number] SS#: [id number] Phone#: [phone] #: 1950 Subjective Interval History: Alert, confused. Objective Vitals: 24hr Min/Max: Temp Min: 36.3 ??C (97.3 ??F) Max: 36.9 ??C (98.4 ??F) Pulse Min: 56 Max: 73 BP Min: 90/64 Max: 142/67 Resp Min: 18 Max: 18 SpO2 Min: 94 % Max: 99 % Intake/Output Summary (Last 24 hours) at 10/21/2023 1759 Last data filed at 10/21/2023 1235 Gross per 24 hour Intake 720 ml Output -- Net 720 ml Wt Readings from Last 3 Encounters: 10/15/23 61.6 kg (135 lb 12.8 oz) 09/03/23 58.5 kg (129 lb) 08/03/23 58.2 kg (128 lb 6.4 oz) Temp Av.7 ??C (98 ??F) Min: 36.3 ??C (97.3 ??F) Max: 36.9 ??C (98.4 ??F) BP Min: 90/64 Max: 142/67 Pulse Av.3 Min: 56 Max: 73 Resp Av Min: 18 Max: 18 SpO2 Av.3 % Min: 94 % Max: 99 % Most Recent: Vitals: 10/21/23 0809 BP: 90/64 Pulse: 65 Resp: 18 Temp: 36.9 ??C (98.4 ??F) SpO2: 97% No intake/output data recorded. I/O this shift: In: 720 [P.O.:720] Out: - Current Facility-Administered Medications Medication Dose Route Frequency Last Rate Last Admin acetaminophen (TYLENOL) tablet 650 mg 650 mg oral Q6H PRN 650 mg at 10/19/232049 albumin 25 % bottle 25 g 25 g intravenous PRN atorvastatin (LIPITOR) tablet 20 mg 20 mg oral Nightly 20 mg at 10/20/232152 benztropine (COGENTIN) tablet 1.5 mg 1.5 mg oral Nightly 1.5 mg at 10/20/232152 calcium acetate(phosphat bind) (PHOSLO) capsule 667 mg 667 mg oral TID with meals 667 mg at 10/21/23 1249 dextrose oral liquid liquid 15 g 15 g oral Q15 Min PRN Or dextrose (D10W) 10% bolus 250 mL 250 mL intravenous Q15 Min PRN enoxaparin (LOVENOX) syringe 30 mg 30 mg subcutaneous Daily-2100 30 mg at 10/20/232151 famotidine (PEPCID) tablet 10 mg 10 mg oral Daily 10 mg at 10/21/23902 ferrous sulfate delayed release tablet 65 mg of elemental iron 65 mg of elemental iron oral BID 65 mg of elemental iron at 10/21/23902 fluticasone propionate (FLONASE) 50 mcg/actuation nasal spray 2 spray 2 spray each nostril Daily 2 spray at 10/21/23903 glucagon injection 1 mg 1 mg intramuscular Q30 Min PRN insulin glargine (LANTUS, SEMGLEE) 100 unit/mL injection 15 Units 0.25 Units/kg subcutaneous Nightly 15 Units at 10/20/232151 insulin lispro (HumaLOG, ADMELOG) 100 unit/mL injection 0-10 Units 0-10 Units subcutaneous TID withmeals 2 Units at 10/20/231802 insulin lispro (HumaLOG, ADMELOG) 100 unit/mL injection 0-5 Units 0-5 Units subcutaneous Nightly 2 Units at 10/19/232025 insulin lispro (HumaLOG, ADMELOG) 100 unit/mL injection 5 Units 0.083 Units/kg subcutaneous TID with meals 5 Units at 10/21/23 1249 metoprolol tartrate (LOPRESSOR) immediate release split tablet 6.25 mg 6.25 mg oral BID 6.25 mg at 10/21/23902 OLANZapine (ZyPREXA) 2.5 mg in sterile water 0.5 mL (5 mg/mL) syringe 2.5 mg intramuscular Q12H PRN OLANZapine (ZyPREXA) tablet 2.5 mg 2.5 mg oral BID PRN ondansetron (ZOFRAN) injection 4 mg 4 mg intravenous Q6H PRN polyethylene glycol (MIRALAX) packet 17 g 17 g oral Daily 17 g at 10/21/23903 ramelteon (ROZEREM) tablet 8 mg 8 mg oral Nightly PRN 8 mg at 10/13/232252 risperiDONE (RisperDAL) tablet 1 mg 1 mg oral Nightly 1 mg at 10/20/232152 Continuous Medications Medication Dose Last Rate Physical Exam: General Appearance: Alert, cooperative, confused Lungs: Decreased breath sounds bilaterally Cardiovascular: Regular rate and rhythm, S1 and S2 normal, no rub or gallop Abdomen: Soft, non-tender, non-distended Extremities: Extremities normal, no LE edema Psychosocial: Normal affect and mood Lab/Radiology/Diagnostic Review: Recent Labs Lab Units 10/21/23 1741 10/20/23 0743 10/20/23 0710 10/19/23 0750 10/19/23 0723 10/18/23 0737 10/18/23 0653 SODIUM mmol/L -- -- 132* -- 138 -- 137 POTASSIUM PLASMA mmol/L -- -- 4.5 -- 4.5 -- 4.3 CHLORIDE mmol/L -- -- 97 -- 103 -- 100 CO2 mmol/L -- -- 28 -- 27 -- 27 BUN SERUM mg/dL -- -- 30* -- 48* -- 28* CREATININE mg/dL -- -- 3.14* -- 4.08* -- 3.07* [id number] mL/min/1.73 m2 -- -- 15* -- 11* -- 16* GLUCOSE mg/dL -- -- 99 -- 109 -- 94 POC GLUCOSE MONITOR mg/dL 116 < > -- < > -- < > -- CALCIUM mg/dL -- -- 8.8 -- 9.2 -- 9.0 ALBUMIN g/dL -- -- 2.8* -- 3.0* -- 2.9* PHOSPHORUS PLASMA mg/dL -- -- 3.5 -- 4.5 -- 3.6 < > = values in this interval not displayed. Additional Labs: Recent Labs Lab Units 10/19/23 0920 10/17/23 0930 WBC K/cumm 8.0 8.5 HEMOGLOBIN g/dL 8.8* 8.2* HEMATOCRIT % 27.9* 25.9* PLATELETS K/cumm 259 253 )Assessment/Plan 1. ESRD: next dialysis tomorrow 2. Hypertension 3. Edema: better. Diuretics on hold 4. Metabolic acidosis: Due to renal failure. 5. Hyperphosphatemia Case discussed with 2 daughters at the bedside. * Kita Marquis CLINICAL NURSE LEADER - 10/21/2023 11:34 AM CDT Cardiology Daily Progress - [facility] SUBJECTIVE: Ms. Chakraborty is getting washed up when I came in. She states her breathing is back to normal. Remains on room air. Denies SOB, chest pain, palpations, dizziness, leg edema, leg pain. Review of Systems: Review of systems per HPI and otherwise all other systems are negative OBJECTIVE: Scheduled Medications Medication Dose Route Frequency atorvastatin (LIPITOR) tablet 20 mg 20 mg oral Nightly benztropine (COGENTIN) tablet 1.5 mg 1.5 mg oral Nightly calcium acetate(phosphat bind) (PHOSLO) capsule 667 mg 667 mg oral TID with meals enoxaparin (LOVENOX) syringe 30 mg 30 mg subcutaneous Daily-2100 famotidine (PEPCID) tablet 10 mg 10 mg oral Daily ferrous sulfate delayed release tablet 65 mg of elemental iron 65 mg of elemental iron oral BID fluticasone propionate (FLONASE) 50 mcg/actuation nasal spray 2 spray 2 spray each nostril Daily insulin glargine (LANTUS, SEMGLEE) 100 unit/mL injection 15 Units 0.25 Units/kg subcutaneous Nightly insulin lispro (HumaLOG, ADMELOG) 100 unit/mL injection 0-10 Units 0-10 Units subcutaneous TID withmeals insulin lispro (HumaLOG, ADMELOG) 100 unit/mL injection 0-5 Units 0-5 Units subcutaneous Nightly insulin lispro (HumaLOG, ADMELOG) 100 unit/mL injection 5 Units 0.083 Units/kg subcutaneous TID with meals metoprolol tartrate (LOPRESSOR) immediate release split tablet 6.25 mg 6.25 mg oral BID polyethylene glycol (MIRALAX) packet 17 g 17 g oral Daily risperiDONE (RisperDAL) tablet 1 mg 1 mg oral Nightly Continuous Medications Medication Dose Last Rate PRN Medications Medication Dose Route Frequency Last Admin acetaminophen (TYLENOL) tablet 650 mg 650 mg oral Q6H PRN 650 mg at 10/19/232049 albumin 25 % bottle 25 g 25 g intravenous PRN dextrose oral liquid liquid 15 g 15 g oral Q15 Min PRN Or dextrose (D10W) 10% bolus 250 mL 250 mL intravenous Q15 Min PRN glucagon injection 1 mg 1 mg intramuscular Q30 Min PRN OLANZapine (ZyPREXA) 2.5 mg in sterile water 0.5 mL (5 mg/mL) syringe 2.5 mg intramuscular Q12H PRN OLANZapine (ZyPREXA) tablet 2.5 mg 2.5 mg oral BID PRN ondansetron (ZOFRAN) injection 4 mg 4 mg intravenous Q6H PRN ramelteon (ROZEREM) tablet 8 mg 8 mg oral Nightly PRN 8 mg at 10/13/23 2253 Recent Labs Lab Units 10/21/23 0733 10/21/23 0226 10/20/23 1956 10/20/23 0743 10/20/23 0710 10/19/23 0750 10/19/23 0723 10/18/23 0737 10/18/23 0653 SODIUM mmol/L -- -- -- -- 132* -- 138 -- 137 POTASSIUM PLASMA mmol/L -- -- -- -- 4.5 -- 4.5 -- 4.3 CHLORIDE mmol/L -- -- -- -- 97 -- 103 -- 100 CO2 mmol/L -- -- -- -- 28 -- 27 -- 27 ANIONGAP mmol/L -- -- -- -- 7 -- 8 -- 10 GLUCOSE mg/dL -- -- -- -- 99 -- 109 -- 94 POC GLUCOSE MONITOR mg/dL 117 114 143 < > -- < > -- < > -- BUN SERUM mg/dL -- -- -- -- 30* -- 48* -- 28* CREATININE mg/dL -- -- -- -- 3.14* -- 4.08* -- 3.07* CALCIUM mg/dL -- -- -- -- 8.8 -- 9.2 -- 9.0 ALBUMIN g/dL -- -- -- -- 2.8* -- 3.0* -- 2.9* < > = values in this interval not displayed. Recent Labs Lab Units 10/19/23 0920 10/17/23 0930 WBC K/cumm 8.0 8.5 HEMOGLOBIN g/dL 8.8* 8.2* HEMATOCRIT % 27.9* 25.9* PLATELETS K/cumm 259 253 Recent Labs Lab Units 10/15/23 0650 PROTIME (PT) sec 12.0 INR 1.05 APTT sec 36 Intake/Output Summary (Last 24 hours) at 10/21/2023 1134 Last data filed at 10/21/2023 0900 Gross per 24 hour Intake 240 ml Output -- Net 240 ml Wt Readings from Last 3 Encounters: 10/15/23 61.6 kg (135 lb 12.8 oz) 09/03/23 58.5 kg (129 lb) 08/03/23 58.2 kg (128 lb 6.4 oz) Patient Vitals for the past 24 hrs: BP Temp Temp src Pulse Resp SpO2 10/21/23 0809 90/64 36.9 ??C (98.4 ??F) Oral 65 18 97 % 10/21/23 0453 135/55 36.3 ??C (97.3 ??F) Axillary 63 18 94 % 10/21/23 0010 (!) 123/42 36.9 ??C (98.4 ??F) Oral 56 18 95 % 10/20/23 203 142/67 36.6 ??C (97.9 ??F) Oral 73 18 99 % 10/20/23 1539 144/65 36.8 ??C (98.2 ??F) Oral 66 18 98 % Exam: General: In no apparent distress Neuro: Alert and oriented x 3, moves all extremities well HEENT: Normocephalic, atraumatic Neck: There are no carotid bruits. I do not appreciate JVD. Lungs: Symmetric, unlabored, clear to auscultation bilaterally Heart: S1,S2, regular rate & rhythm, no murmurs, rubs, or gallops Abdomen: Soft, non-tender, non-distended, bowel sounds present Extremities: No LE edema, palpable peripheral pulses BL Neurologic: No focal deficits Nuclear stress test from August 05, 2022 There is normal distribution of activity in the left and right ventricular myocardium on both stress and rest images. Gated post-stress images demonstrate normal left ventricular volume, normal left ventricular wall motion and normal ejection fraction of 67 % (normal >45%). Additional gated rest images demonstrate normal left ventricular wall motion and a resting left ventricular ejection fraction of 61. Incidental findings on the low-dose CT images: Mild calcification noted within the coronary arteries. A 4 mm left lower lobe pulmonary granuloma. IMPRESSION: 1. Normal exercise and rest myocardial perfusion. 2. Normal left ventricular size and systolic function. 3. Mild coronary artery calcifications Echocardiogram December 08, 2022 Conclusions: Normal left ventricular size. Normal left ventricular systolic function with no focal wall motion abnormalities. Ejection fraction is measured at 65 %. Normal structure of the tricuspid valve. Moderate pulmonary hypertension based on right ventricular systolic pressure. Estimated peak RVSP is 50 mmHg. Mild tricuspid regurgitation. Dilated IVC with respiratory collapse consistent with elevated right atrial pressure (10-15 mmHg). ASSESSMENT/PLAN: Acute on chronic diastolic heart failure - Volume over load due to CKD stage 4; on dialysis for volume management -nephrology is managing diuretics - normal LV function on recent echocardiogram noted as above - moderate pulmonary hypertension likely due to left-sided heart failure ESRD -nephrology is managing seen by Dr. Choi Elevated troponin due to renal dysfunction - does not represent ACS - nonischemic MPI recently as noted above Essential hypertension -BP stable - though had one low reading today; monitor - likely due to getting dialysis today Diabetes mellitus type 2 -A1c was 8.2 -Glycemic management per primary Iron deficiency anemia - hemoglobin stable -chronic anemia Plan: From CV standpoint she seems back to baseline. No labs resulted yet from today. No recs today. Kita Marquis NP [facility] 10/21/2023 11:34 AM * Zhang Mendez MD - 10/21/2023 6:26 AM CDT Hospitalist Progress Note Duane Corcoran MD Sixto Chakraborty is a 72 y.o. female with chief complaint of: Lower extremity edema presented on the left. Overnight Events: Patient still requiring to have sitter for safety and support. Subjective: Patient was awake earlier today, able to respond only to some orientation questions. Objective: Vitals: Temp Min: 36.3 ??C (97.3 ??F) Max: 36.9 ??C (98.4 ??F) Pulse Min: 56 Max: 73 BP Min: 90/64 Max: 144/65 Resp Min: 18 Max: 18 SpO2 Min: 94 % Max: 99 % Most Recent : Vitals: 10/20/232 10/21/23 0010 10/21/23 0453 10/21/23 0809 BP: 142/67 (!) 123/42 135/55 90/64 BP Location: Left arm Left arm Left arm Left arm Patient Position: Lying Lying Lying Sitting Pulse: 73 56 63 65 Resp: 18 18 18 18 Temp: 36.6 ??C (97.9 ??F) 36.9 ??C (98.4 ??F) 36.3 ??C (97.3 ??F) 36.9 ??C (98.4 ??F) TempSrc: Oral Oral Axillary Oral SpO2: 99% 95% 94% 97% Weight: Height: Intake/Output Summary (Last 24 hours) at 10/21/2023 1226 Last data filed at 10/21/2023 0900 Gross per 24 hour Intake 240 ml Output -- Net 240 ml Physical exam: Gen: Patient is a 72-year-old female in NAD HEENT: Positive conjunctival pallor Neck: Supple, no JVD Resp: Poor effort with decreased breathing sound at bases CV: S1, S2, RRR, over 6 systolic GI: +BS, Soft, no abdominal tender MSK: Decreased lower extremity edema Skin: No rashes Neuro: Patient was awake earlier today, able to respond only to some orientation questions. Psych: Appropriate mood and affect Lab/Radiology/Diagnostic Review: Reviewed. Recent Results (from the past 24 hour(s)) POCT glucose Collection Time: 10/20/23 12:29 PM Result Value Ref Range Glucose, POC 133 70 - 199 mg/dL POCT glucose Collection Time: 10/20/23 5:30 PM Result Value Ref Range Glucose, POC 156 70 - 199 mg/dL POCT glucose Collection Time: 10/20/23 7:56 PM Result Value Ref Range Glucose, POC 143 70 - 199 mg/dL POCT glucose Collection Time: 10/21/23 2:26 AM Result Value Ref Range Glucose, POC 114 70 - 199 mg/dL POCT glucose Collection Time: 10/21/23 7:33 AM Result Value Ref Range Glucose, POC 117 70 - 199 mg/dL POCT glucose Collection Time: 10/21/23 12:10 PM Result Value Ref Range Glucose, POC 108 70 - 199 mg/dL Assessment: Principal Problem: Acute on chronic diastolic congestive heart failure (CMS/HCC) ([facility]) Active Problems: Diabetic neuropathy ([facility]) Type 2 diabetes mellitus with diabetic neuropathy, with long-term current use of insulin ([facility]) Primary hypertension Gastroesophageal reflux disease without esophagitis Mixed hyperlipidemia Schizoaffective disorder, bipolar type ([facility]) ([facility]) Anemia in stage 4 chronic kidney disease ([facility]) Acute kidney injury superimposed on CKD ([facility]) Leg swelling Diabetes mellitus with hyperglycemia ([facility]) ([facility]) Dyslipidemia Alzheimer's dementia ([facility]) Plan: Patient is a 72-year-old female with history of hypertension, hyperlipidemia, diabetes mellitus type 2/diabetic neuropathy, history of HFpEF, dementia, arthritis, depression, chronic kidney disease stage 4, schizophrenia, and history of osteomyelitis. Patient presented to the emergency room on October 06, 2023 with chief complaint of lower extremity edema. Patient was admitted through the emergency room on October 07, [address] Jolly, patient was seen H&P done with our nurse practitioner Ms. Jade on October 07, 2023, then patient was followed with on October 08, 2023 till October 13, 2023, the patient was followed with Dr. Gamboa on October 14, 2023 till October 16, 2023, at and Dr. Adames resumed patient care on October 17, 2023, the patient resumed care by Dr. Gamboa on 02/09/2024 till October 19, [address] Meza started the patient on October 21, 2023. Patient followed with Nephrology consult, Cardiology consult to [facility], Neurology consult, psychiatrist consult. Acute on chronic diastolic congestive heart failure: Volume stabilized with hemodialysis. Compensated. Followed with cardiology consult. End-stage renal disease: Presented with acute on chronic kidney disease. Continue current hemodialysis schedule. New dialysis patient. Outpatient dialysis being set up. Patient followed with Nephrology consult. Essential hypertension: Continue with Lopressor 25 mg 1 tablet twice a day. Continue monitoring blood pressure closely. Hyperlipidemia: Continue with atorvastatin 20 mg 1 tablet q.h.s.. Diabetes mellitus type 2: Patient currently on insulin Lantus 15 units subQ q.h.s., insulin lispro/Humalog 5 units subQ 3 times daily with meals. Continue with diabetic diet, and insulin sliding scale. Schizoaffective disorder: Patient currently on benztropine 1.5 mg 1 tablet q.h.s., risperidone 1 mg q.h.s.. Prevention: Continue with Lovenox 30 mg subQ daily for DVT prophylaxis. Anticipated discharge: 1-2 Days. Medical decision making complexity: 1-2 days. Zhang Mendez MD Hospitalist 10/21/2023 12:26 PM * Gill Gamboa MD - 10/20/2023 3:54 PM CDT General Medicine Progress Note Interval Events: This is a 72-year-old female with history of arthritis, CHF, dementia, depression, diabetic neuropathy, hyperlipidemia, advance insufficiency who came to the hospital with complaint of lower extremity swelling. Clinical findings associated with volume overload associated with severe renal and worsening renal insufficiency. Patient is now advanced to end-stage renal disease and is now status post hemodialysis catheter placement. Patient now on hemodialysis. Now on usual hemodialysis schedule. Placement/discharge planning remains underway. Subjective: Chief complaint: Shortness of breath. Patient seen in her room. Resting comfortably. Patient appears to be in good spirits. No new complaints Objective: Vitals: 24hr Min/Max: Temp Min: 36.5 ??C (97.7 ??F) Max: 36.8 ??C (98.2 ??F) Pulse Min: 58 Max: 73 BP Min: 118/47 Max: 144/65 Resp Min: 18 Max: 19 SpO2 Min: 97 % Max: 99 % Most Recent: Vitals: 10/20/23 0758 10/20/23 1133 10/20/23 1539 10/20/232031 BP: 118/47 125/53 144/65 142/67 BP Location: Right arm Right arm Left arm Left arm Patient Position: Lying Pulse: 58 69 66 73 Resp: 19 18 18 18 Temp: 36.7 ??C (98 ??F) 36.5 ??C (97.7 ??F) 36.8 ??C (98.2 ??F) 36.6 ??C (97.9 ??F) TempSrc: Oral Oral Oral Oral SpO2: 97% 98% 98% 99% Weight: Height: No intake or output data in the 24 hours ending 10/20/23 2685 Physical Exam: Physical Exam GEN: Alert. NAD HENT: Normocephalic. Atraumatic. CVS: RRR CHEST: Coarse breath sounds bilaterally ABD: soft. ND EXT: no edema Lab/Radiology/Diagnostic Review: Reviewed. Recent Results (from the past 24 hour(s)) POCT glucose Collection Time: 10/20/23 1:49 AM Result Value Ref Range Glucose, POC 125 70 - 199 mg/dL Renal function panel Collection Time: 10/20/23 7:10 AM Result Value Ref Range Sodium 132 (L) 135 - 145 mmol/L Potassium, pl 4.5 3.3 - 4.9 mmol/L Chloride 97 97 - 110 mmol/L CO2 28 22 - 32 mmol/L Anion gap 7 2 - 15 mmol/L BUN 30 (H) 6 - 25 mg/dL Creatinine 3.14 (H) 0.60 - 1.10 mg/dL Glucose 99 70 - 199 mg/dL Calcium 8.8 8.5 - 10.3 mg/dL Phosphorus, pl 3.5 2.3 - 4.5 mg/dL Albumin 2.8 (L) 3.5 - 5.0 g/dL eGFR Collection Time: 10/20/23 7:10 AM Result Value Ref Range eGFR 15 (L) >=60 mL/min/1.73 m2 POCT glucose Collection Time: 10/20/23 7:43 AM Result Value Ref Range Glucose, POC 101 70 - 199 mg/dL POCT glucose Collection Time: 10/20/23 12:29 PM Result Value Ref Range Glucose, POC 133 70 - 199 mg/dL POCT glucose Collection Time: 10/20/23 5:30 PM Result Value Ref Range Glucose, POC 156 70 - 199 mg/dL POCT glucose Collection Time: 10/20/23 7:56 PM Result Value Ref Range Glucose, POC 143 70 - 199 mg/dL Assessment and Plan: Principal Problem: Acute on chronic diastolic congestive heart failure (CMS/HCC) ([facility]) Active Problems: Diabetic neuropathy ([facility]) Type 2 diabetes mellitus with diabetic neuropathy, with long-term current use of insulin ([facility]) Primary hypertension Gastroesophageal reflux disease without esophagitis Mixed hyperlipidemia Schizoaffective disorder, bipolar type (CMS/HCC) (HCC) Anemia in stage 4 chronic kidney disease (HCC) Acute kidney injury superimposed on CKD (HCC) Leg swelling Diabetes mellitus with hyperglycemia (CMS/HCC) (HCC) Dyslipidemia Alzheimer's dementia (HCC) End-stage renal disease. Continue current hemodialysis schedule. New dialysis patient. Outpatient dialysis being set up. Acute on chronic diastolic congestive heart failure. Patient now stable and compensated. Type 2 diabetes. Continue with current basal-bolus regimen of insulin with Lantus/Humalog. Continueto monitor closely. Essential hypertension. Continue Lopressor 25 mg b.i.d.. Continue amlodipine 10 mg daily. Fen. Continue to monitor electrolytes. Disposition: Placement planning and discharge planning remains underway. Plan to go to custodial facility. Discharge planning: Will need placement planning as well as outpatient dialysis set up Expected date of discharge: 10/21/2023 My total encounter time on 10/20/2023 was 36 minutes which was spent in the activities documented inthe note. This includes time spent prior to the visit and after the visit in direct care of the patient. This time does not include time spent in any separately reportable services. Gill Gamboa MD Hospitalist [phone] 411:22 PM * Anil Wong MD - 10/20/2023 3:01 PM CDT Nephrology Daily Progress [facility]# [id number] #: [id number] Phone#: [phone] #: [phone] Subjective Interval History: Alert, confused. Objective Vitals: 24hr Min/Max: Temp Min: 36.5 ??C (97.7 ??F) Max: 37.2 ??C (98.9 ??F) Pulse Min: 58 Max: 69 BP Min: 118/47 Max: 133/71 Resp Min: 18 Max: 19 SpO2 Min: 96 % Max: 99 % No intake or output data in the 24 hours ending 10/20/23 1501 Wt Readings from Last 3 Encounters: 10/15/23 61.6 kg (135 lb 12.8 oz) 09/03/23 58.5 kg (129 lb) 08/03/23 58.2 kg (128 lb 6.4 oz) Temp Av.8 ??C (98.3 ??F) Min: 36.5 ??C (97.7 ??F) Max: 37.2 ??C (98.9 ??F) BP Min: 118/47 Max: 133/71 Pulse Av.8 Min: 58 Max: 69 Resp Av.8 Min: 18 Max: 19 SpO2 Av.5 % Min: 96 % Max: 99 % Most Recent: Vitals: 10/20/23 1133 BP: 125/53 Pulse: 69 Resp: 18 Temp: 36.5 ??C (97.7 ??F) SpO2: 98% I/O last 2 completed shifts: In: 700 [Other:700] Out: 500 [Other:500] No intake/output data recorded. Current Facility-Administered Medications Medication Dose Route Frequency Last Rate Last Admin acetaminophen (TYLENOL) tablet 650 mg 650 mg oral Q6H PRN 650 mg at 10/19/232049 albumin 25 % bottle 25 g 25 g intravenous PRN atorvastatin (LIPITOR) tablet 20 mg 20 mg oral Nightly 20 mg at 10/19/232029 benztropine (COGENTIN) tablet 1.5 mg 1.5 mg oral Nightly 1.5 mg at 10/19/232027 calcium acetate(phosphat bind) (PHOSLO) capsule 667 mg 667 mg oral TID with meals 667 mg at 10/20/23 1315 dextrose oral liquid liquid 15 g 15 g oral Q15 Min PRN Or dextrose (D10W) 10% bolus 250 mL 250 mL intravenous Q15 Min PRN enoxaparin (LOVENOX) syringe 30 mg 30 mg subcutaneous Daily-2100 30 mg at 10/19/232025 famotidine (PEPCID) tablet 10 mg 10 mg oral Daily 10 mg at 10/20/23 08 ferrous sulfate delayed release tablet 65 mg of elemental iron 65 mg of elemental iron oral BID 65 mg of elemental iron at 10/20/23 08 fluticasone propionate (FLONASE) 50 mcg/actuation nasal spray 2 spray 2 spray each nostril Daily 2 spray at 10/20/23 0807 glucagon injection 1 mg 1 mg intramuscular Q30 Min PRN insulin glargine (LANTUS, SEMGLEE) 100 unit/mL injection 15 Units 0.25 Units/kg subcutaneous Nightly 15 Units at 10/19/232026 insulin lispro (HumaLOG, ADMELOG) 100 unit/mL injection 0-10 Units 0-10 Units subcutaneous TID with meals 4 Units at 10/19/23 171 insulin lispro (HumaLOG, ADMELOG) 100 unit/mL injection 0-5 Units 0-5 Units subcutaneous Nightly 2 Units at 10/19/232025 insulin lispro (HumaLOG, ADMELOG) 100 unit/mL injection 5 Units 0.083 Units/kg subcutaneous TID with meals 5 Units at 10/20/23 1314 metoprolol tartrate (LOPRESSOR) immediate release split tablet 6.25 mg 6.25 mg oral BID 6.25 mg at 10/20/23 08 OLANZapine (ZyPREXA) 2.5 mg in sterile water 0.5 mL (5 mg/mL) syringe 2.5 mg intramuscular Q12H PRN OLANZapine (ZyPREXA) tablet 2.5 mg 2.5 mg oral BID PRN ondansetron (ZOFRAN) injection 4 mg 4 mg intravenous Q6H PRN polyethylene glycol (MIRALAX) packet 17 g 17 g oral Daily 17 g at 10/20/23 0806 ramelteon (ROZEREM) tablet 8 mg 8 mg oral Nightly PRN 8 mg at 10/13/232252 risperiDONE (RisperDAL) tablet 1 mg 1 mg oral Nightly 1 mg at 10/19/232028 Continuous Medications Medication Dose Last Rate Physical Exam: General Appearance: Alert, cooperative, confused Lungs: Decreased breath sounds bilaterally Cardiovascular: Regular rate and rhythm, S1 and S2 normal, no rub or gallop Abdomen: Soft, non-tender, non-distended Extremities: Extremities normal, no LE edema Psychosocial: Normal affect and mood Lab/Radiology/Diagnostic Review: Recent Labs Lab Units 10/20/23 1229 10/20/23 0743 10/20/23 0710 10/19/23 0750 10/19/23 0723 10/18/23 0737 10/18/23 0653 SODIUM mmol/L -- -- 132* -- 138 -- 137 POTASSIUM PLASMA mmol/L -- -- 4.5 -- 4.5 -- 4.3 CHLORIDE mmol/L -- -- 97 -- 103 -- 100 CO2 mmol/L -- -- 28 -- 27 -- 27 BUN SERUM mg/dL -- -- 30* -- 48* -- 28* CREATININE mg/dL -- -- 3.14* -- 4.08* -- 3.07* [id number] mL/min/1.73 m2 -- -- 15* -- 11* -- 16* GLUCOSE mg/dL -- -- 99 -- 109 -- 94 POC GLUCOSE MONITOR mg/dL 133 < > -- < > -- < > -- CALCIUM mg/dL -- -- 8.8 -- 9.2 -- 9.0 ALBUMIN g/dL -- -- 2.8* -- 3.0* -- 2.9* PHOSPHORUS PLASMA mg/dL -- -- 3.5 -- 4.5 -- 3.6 < > = values in this interval not displayed. Additional Labs: Recent Labs Lab Units 10/19/23 0920 10/17/23 0930 WBC K/cumm 8.0 8.5 HEMOGLOBIN g/dL 8.8* 8.2* HEMATOCRIT % 27.9* 25.9* PLATELETS K/cumm 259 253 )Assessment/Plan 1. ESRD: next dialysis tomorrow 2. Hypertension 3. Edema: better. Diuretics on hold 4. Metabolic acidosis: Due to renal failure. 5. Hyperphosphatemia * Shiloh Barrientos NP - 10/20/2023 10:12 AM CDT Daily Progress SUBJECTIVE: Ms. Chakraborty sitting up in the chair. More alert, answered questions appropriately. Denies chest pain. Comfortable on RA. bobtail driver at bed side. OBJECTIVE: Vitals: 10/19/23 1258 10/19/23 1525 10/19/23 1939 10/20/23 0758 BP: 130/61 133/71 130/57 118/47 BP Location: Right arm Right arm Right arm Right arm Patient Position: Lying Pulse: 61 63 65 58 Resp: 18 19 19 19 Temp: 36.5 ??C (97.7 ??F) 36.9 ??C (98.5 ??F) 37.2 ??C (98.9 ??F) 36.7 ??C (98 ??F) TempSrc: Temporal Oral Oral Oral SpO2: 99% 96% 97% Weight: Height: Intake/Output Summary (Last 24 hours) at 10/20/2023 1012 Last data filed at 10/19/2023 1258 Gross per 24 hour Intake 700 ml Output 500 ml Net 200 ml Scheduled Medications Medication Dose Route Frequency atorvastatin (LIPITOR) tablet 20 mg 20 mg oral Nightly benztropine (COGENTIN) tablet 1.5 mg 1.5 mg oral Nightly calcium acetate(phosphat bind) (PHOSLO) capsule 667 mg 667 mg oral TID with meals enoxaparin (LOVENOX) syringe 30 mg 30 mg subcutaneous Daily-2100 famotidine (PEPCID) tablet 10 mg 10 mg oral Daily ferrous sulfate delayed release tablet 65 mg of elemental iron 65 mg of elemental iron oral BID fluticasone propionate (FLONASE) 50 mcg/actuation nasal spray 2 spray 2 spray each nostril Daily insulin glargine (LANTUS, SEMGLEE) 100 unit/mL injection 15 Units 0.25 Units/kg subcutaneous Nightly insulin lispro (HumaLOG, ADMELOG) 100 unit/mL injection 0-10 Units 0-10 Units subcutaneous TID withmeals insulin lispro (HumaLOG, ADMELOG) 100 unit/mL injection 0-5 Units 0-5 Units subcutaneous Nightly insulin lispro (HumaLOG, ADMELOG) 100 unit/mL injection 5 Units 0.083 Units/kg subcutaneous TID with meals metoprolol tartrate (LOPRESSOR) immediate release split tablet 6.25 mg 6.25 mg oral BID polyethylene glycol (MIRALAX) packet 17 g 17 g oral Daily risperiDONE (RisperDAL) tablet 1 mg 1 mg oral Nightly LABS: Recent Labs Lab Units 10/19/23 0920 WBC K/cumm 8.0 HEMOGLOBIN g/dL 8.8* HEMATOCRIT % 27.9* PLATELETS K/cumm 259 Recent Labs Lab Units 10/20/23 0743 10/20/23 0710 SODIUM mmol/L -- 132* POTASSIUM PLASMA mmol/L -- 4.5 CHLORIDE mmol/L -- 97 CO2 mmol/L -- 28 ANIONGAP mmol/L -- 7 GLUCOSE mg/dL -- 99 POC GLUCOSE MONITOR mg/dL 101 -- BUN SERUM mg/dL -- 30* CREATININE mg/dL -- 3.14* CALCIUM mg/dL -- 8.8 ALBUMIN g/dL -- 2.8* No results found for: BNP Lab Results Component Value Date TROPONINI <0.04 05/04/2014 Exam General: in no apparent distress Neuro: Alert and oriented x 3, moves all extremities well Lungs: symmetric, unlabored, diminished to auscultation bilaterally Heart: S1,S2, regular rate & rhythm, no murmurs, rubs, or gallops Abdomen: soft, non-tender, non-distended, bowel sounds present Extremities: trace LE edema, palpable peripheral pulses BL Nuclear stress test from August 05, 2022 There is normal distribution of activity in the left and right ventricular myocardium on both stress and rest images. Gated post-stress images demonstrate normal left ventricular volume, normal left ventricular wall motion and normal ejection fraction of 67 % (normal >45%). Additional gated rest images demonstrate normal left ventricular wall motion and a resting left ventricular ejection fraction of 61. Incidental findings on the low-dose CT images: Mild calcification noted within the coronary arteries. A 4 mm left lower lobe pulmonary granuloma. IMPRESSION: 1. Normal exercise and rest myocardial perfusion. 2. Normal left ventricular size and systolic function. 3. Mild coronary artery calcifications Echocardiogram December 08, 2022 Conclusions: Normal left ventricular size. Normal left ventricular systolic function with no focal wall motion abnormalities. Ejection fraction is measured at 65 %. Normal structure of the tricuspid valve. Moderate pulmonary hypertension based on right ventricular systolic pressure. Estimated peak RVSP is 50 mmHg. Mild tricuspid regurgitation. Dilated IVC with respiratory collapse consistent with elevated right atrial pressure (10-15 mmHg). ASSESSMENT/PLAN: Acute on chronic diastolic heart failure - Volume over load due to CKD stage 4, on IV diuresis as per Nephrology - on dialysis for volume management -nephrology is managing - normal LV function on recent echocardiogram noted as above - moderate pulmonary hypertension likely due to left-sided heart failure ESRD -nephrology is managing seen by Dr. Choi Elevated troponin due to renal dysfunction - does not represent ACS - nonischemic MPI recently as noted above Essential hypertension -BP stable Diabetes mellitus type 2 -A1c was 8.2 -Glycemic management per primary Iron deficiency anemia - hemoglobin stable -chronic anemia Shiloh Barrientos NP [facility] 10/20/2023 10:12 AM * Jimbo Strauss MD - 10/19/2023 5:00 PM CDT Nephrology Daily Progress [facility]# [id number] SS#: [id number] Phone#: [phone] #: [phone] Subjective Chief complaint of Interval History: confused, needs a sitter Objective Vitals: 24hr Min/Max: Temp Min: 36.5 ??C (97.7 ??F) Max: 36.9 ??C (98.4 ??F) Pulse Min: 56 Max: 73 BP Min: 118/47 Max: 144/65 Resp Min: 18 Max: 19 SpO2 Min: 95 % Max: 99 % No intake or output data in the 24 hours ending 10/21/23 0455 Wt Readings from Last 3 Encounters: 10/15/23 61.6 kg (135 lb 12.8 oz) 09/03/23 58.5 kg (129 lb) 08/03/23 58.2 kg (128 lb 6.4 oz) Temp Av.7 ??C (98 ??F) Min: 36.5 ??C (97.7 ??F) Max: 36.9 ??C (98.4 ??F) BP Min: 118/47 Max: 144/65 Pulse Av.4 Min: 56 Max: 73 Resp Av.2 Min: 18 Max: 19 SpO2 Av.4 % Min: 95 % Max: 99 % Most Recent: Vitals: 10/21/23 0010 BP: (!) 123/42 Pulse: 56 Resp: 18 Temp: 36.9 ??C (98.4 ??F) SpO2: 95% No intake/output data recorded. No intake/output data recorded. Current Facility-Administered Medications Medication Dose Route Frequency Last Rate Last Admin acetaminophen (TYLENOL) tablet 650 mg 650 mg oral Q6H PRN 650 mg at 10/19/232049 albumin 25 % bottle 25 g 25 g intravenous PRN atorvastatin (LIPITOR) tablet 20 mg 20 mg oral Nightly 20 mg at 10/20/232152 benztropine (COGENTIN) tablet 1.5 mg 1.5 mg oral Nightly 1.5 mg at 10/20/232152 calcium acetate(phosphat bind) (PHOSLO) capsule 667 mg 667 mg oral TID with meals 667 mg at 10/20/231801 dextrose oral liquid liquid 15 g 15 g oral Q15 Min PRN Or dextrose (D10W) 10% bolus 250 mL 250 mL intravenous Q15 Min PRN enoxaparin (LOVENOX) syringe 30 mg 30 mg subcutaneous Daily-2100 30 mg at 10/20/232151 famotidine (PEPCID) tablet 10 mg 10 mg oral Daily 10 mg at 10/20/23805 ferrous sulfate delayed release tablet 65 mg of elemental iron 65 mg of elemental iron oral BID 65 mg of elemental iron at 10/20/232152 fluticasone propionate (FLONASE) 50 mcg/actuation nasal spray 2 spray 2 spray each nostril Daily 2 spray at 10/20/23 0807 glucagon injection 1 mg 1 mg intramuscular Q30 Min PRN insulin glargine (LANTUS, SEMGLEE) 100 unit/mL injection 15 Units 0.25 Units/kg subcutaneous Nightly 15 Units at 10/20/232151 insulin lispro (HumaLOG, ADMELOG) 100 unit/mL injection 0-10 Units 0-10 Units subcutaneous TID withmeals 2 Units at 10/20/231802 insulin lispro (HumaLOG, ADMELOG) 100 unit/mL injection 0-5 Units 0-5 Units subcutaneous Nightly 2 Units at 10/19/232025 insulin lispro (HumaLOG, ADMELOG) 100 unit/mL injection 5 Units 0.083 Units/kg subcutaneous TID with meals 5 Units at 10/20/231801 metoprolol tartrate (LOPRESSOR) immediate release split tablet 6.25 mg 6.25 mg oral BID 6.25 mg at 10/20/232152 OLANZapine (ZyPREXA) 2.5 mg in sterile water 0.5 mL (5 mg/mL) syringe 2.5 mg intramuscular Q12H PRN OLANZapine (ZyPREXA) tablet 2.5 mg 2.5 mg oral BID PRN ondansetron (ZOFRAN) injection 4 mg 4 mg intravenous Q6H PRN polyethylene glycol (MIRALAX) packet 17 g 17 g oral Daily 17 g at 10/20/23 0806 ramelteon (ROZEREM) tablet 8 mg 8 mg oral Nightly PRN 8 mg at 10/13/23 2253 risperiDONE (RisperDAL) tablet 1 mg 1 mg oral Nightly 1 mg at 10/20/23 2153 Continuous Medications Medication Dose Last Rate Physical Exam: General Appearance: Alert, cooperative, confused Head: Normocephalic, without obvious abnormality, atraumatic Eyes: PERRL, conjunctiva/corneas clear, EOM's intact, both eyes, anicteric Neck: Supple, symmetrical, trachea midline, no adenopathy; thyroid: No enlargement/tenderness/nodules; no carotid bruits, No JVD Lungs: Decreased breath sounds bilaterally Cardiovascular: Regular rate and rhythm, S1 and S2 normal, no murmur, rub or gallop Abdomen: Soft, non-tender, bowel sounds active all four quadrants, non-distended Extremities: Extremities normal, no LE edema Skin: Skin color, texture, turgor normal, no rashes, lesions or bruising Neurologic: Alert & oriented person, difficult time with orientation questions Psychosocial: Normal affect and mood Dialysis Access Exam: Lab/Radiology/Diagnostic Review: Recent Labs Lab Units 10/21/23 0226 10/20/23 0743 10/20/23 0710 10/19/23 0750 10/19/23 0723 10/18/23 0737 10/18/23 0653 SODIUM mmol/L -- -- 132* -- 138 -- 137 POTASSIUM PLASMA mmol/L -- -- 4.5 -- 4.5 -- 4.3 CHLORIDE mmol/L -- -- 97 -- 103 -- 100 CO2 mmol/L -- -- 28 -- 27 -- 27 BUN SERUM mg/dL -- -- 30* -- 48* -- 28* CREATININE mg/dL -- -- 3.14* -- 4.08* -- 3.07* [id number] mL/min/1.73 m2 -- -- 15* -- 11* -- 16* GLUCOSE mg/dL -- -- 99 -- 109 -- 94 POC GLUCOSE MONITOR mg/dL 114 < > -- < > -- < > -- CALCIUM mg/dL -- -- 8.8 -- 9.2 -- 9.0 ALBUMIN g/dL -- -- 2.8* -- 3.0* -- 2.9* PHOSPHORUS PLASMA mg/dL -- -- 3.5 -- 4.5 -- 3.6 < > = values in this interval not displayed. Additional Labs: Recent Labs Lab Units 10/19/23 0920 10/17/23 0930 WBC K/cumm 8.0 8.5 HEMOGLOBIN g/dL 8.8* 8.2* HEMATOCRIT % 27.9* 25.9* PLATELETS K/cumm 259 253 )Assessment/Plan 1. ESRD: Due to diabetes and hypertension. Stage IV. As off 10/14/2023 spoke to daughter. Will plan to start HD for . Will initiate out pt HD placement as well. As off 10/15/2023 for HD again Thursday As off 10/19/2023 has been tolerating HD well. Out pt HD placement has been initiated. Due to pt requiring a sitter, out pt HD placement will be difficult. 2. Hypertension: Adjust blood pressure medicines as needed As off 10/16/2023 BP is low, hold BP meds 3. Edema: Mostly due to pulmonary hypertension and chronic kidney disease. Ongoing diuresis. Expectsome rising creatinine with diuresis. As off 10/11/2023 edema is better. Diuretics on hold 4. Metabolic acidosis: Due to renal failure. If it goes any lower will need supplementation. 5. High phosphorus: will add a binder DICTATION DISCLAIMER: This note is transcribed using the [employer] direct voice recognition system without human dust control engineer. In an effort to expedite patient care, this note has not been adjusted for typographical, grammatical, and syntax by a trained medical equipment sales. Portions of this note have been copied from the medical record, but edited appropriately to accurately reflect the patient's current clinical state. Jimbo Strauss Office/exchange: [phone] * Gill Gamboa MD - 10/19/2023 4:21 PM CDT General Medicine Progress Note Interval Events: This is a 72-year-old female with history of arthritis, CHF, dementia, depression, diabetic neuropathy, hyperlipidemia, advance insufficiency who came to the hospital with complaint of lower extremity swelling. Clinical findings associated with volume overload associated with severe renal and worsening renal insufficiency. Patient is now advanced to end-stage renal disease and is now status post hemodialysis catheter placement. Patient has now been transitioned to hemodialysis. Dialysis treatments have been initiated and patient now on dialysis scheduled. Discharge planning-plan to set up outpatient dialysis as well as placement. Subjective: Chief complaint: Shortness of breath. Patient seen in his room. Resting comfortably. No new complaints Objective: Vitals: 24hr Min/Max: Temp Min: 36.4 ??C (97.5 ??F) Max: 37.2 ??C (98.9 ??F) Pulse Min: 56 Max: 65 BP Min: 126/73 Max: 161/65 Resp Min: 16 Max: 19 SpO2 Min: 95 % Max: 99 % Most Recent: Vitals: 10/19/23 0910 10/19/23 1258 10/19/23 1525 10/19/23 1939 BP: 161/65 130/61 133/71 130/57 BP Location: Right arm Right arm Right arm Right arm Patient Position: Lying Lying Pulse: 65 61 63 65 Resp: 18 18 19 19 Temp: 36.4 ??C (97.5 ??F) 36.5 ??C (97.7 ??F) 36.9 ??C (98.5 ??F) 37.2 ??C (98.9 ??F) TempSrc: Temporal Temporal Oral Oral SpO2: 99% 96% Weight: Height: Intake/Output Summary (Last 24 hours) at 10/20/2023 0437 Last data filed at 10/19/2023 1258 Gross per 24 hour Intake 700 ml Output 500 ml Net 200 ml Physical Exam: Physical Exam GEN: Alert. NAD HENT: Normocephalic. Atraumatic. CVS: RRR CHEST: Coarse breath sounds bilaterally ABD: soft. ND EXT: no edema Lab/Radiology/Diagnostic Review: Reviewed. Recent Results (from the past 24 hour(s)) Renal function panel Collection Time: 10/19/23 7:23 AM Result Value Ref Range Sodium 138 135 - 145 mmol/L Potassium, pl 4.5 3.3 - 4.9 mmol/L Chloride 103 97 - 110 mmol/L CO2 27 22 - 32 mmol/L Anion gap 8 2 - 15 mmol/L BUN 48 (H) 6 - 25 mg/dL Creatinine 4.08 (H) 0.60 - 1.10 mg/dL Glucose 109 70 - 199 mg/dL Calcium 9.2 8.5 - 10.3 mg/dL Phosphorus, pl 4.5 2.3 - 4.5 mg/dL Albumin 3.0 (L) 3.5 - 5.0 g/dL eGFR Collection Time: 10/19/23 7:23 AM Result Value Ref Range eGFR 11 (L) >=60 mL/min/1.73 m2 POCT glucose Collection Time: 10/19/23 7:50 AM Result Value Ref Range Glucose, POC 101 70 - 199 mg/dL CBC without differential Collection Time: 10/19/23 9:20 AM Result Value Ref Range WBC 8.0 3.8 - 9.9 K/cumm Hgb 8.8 (L) 11.9 - 15.5 g/dL Hct 27.9 (L) 35.6 - 45.5 % Plt 259 150 - 400 K/cumm MPV 10.7 9.1 - 12.3 fL RBC 2.96 (L) 3.90 - 5.20 M/cumm MCV 94.3 81.3 - 96.4 fL MCH 29.7 27.1 - 33.3 pg MCHC 31.5 (L) 32.3 - 35.7 g/dL RDW CV 13.4 11.1 - 14.9 % RDW SD 46.5 35.7 - 48.1 fL NRBC abs 0.00 0.00 - 0.01 K/cumm POCT glucose Collection Time: 10/19/23 5:01 PM Result Value Ref Range Glucose, POC 205 (H) 70 - 199 mg/dL POCT glucose Collection Time: 10/19/23 7:59 PM Result Value Ref Range Glucose, POC 204 (H) 70 - 199 mg/dL POCT glucose Collection Time: 04/30/24 1:49 AM Result Value Ref Range Glucose, POC 125 70 - 199 mg/dL Assessment and Plan: Principal Problem: Acute on chronic diastolic congestive heart failure ([facility]) ([facility]) Active Problems: Diabetic neuropathy ([facility]) Type 2 diabetes mellitus with diabetic neuropathy, with long-term current use of insulin ([facility]) Primary hypertension Gastroesophageal reflux disease without esophagitis Mixed hyperlipidemia Schizoaffective disorder, bipolar type ([facility]) ([facility]) Anemia in stage 4 chronic kidney disease ([facility]) Acute kidney injury superimposed on CKD ([facility]) Leg swelling Diabetes mellitus with hyperglycemia ([facility]) ([facility]) Dyslipidemia Alzheimer's dementia ([facility]) Acute hypoxemic respiratory failure. Respiratory status stable. No acute failure. End-stage renal disease. Patient now on hemodialysis. On hemodialysis scheduled. Case management assisting sitting outpatient dialysis center Acute on chronic diastolic congestive heart failure. Volume management per Nephrology. Stable and compensated at this time. Acute on chronic diastolic congestive heart failure exacerbation. Patient is stable and compensated. Type 2 diabetes. Continue with current basal-bolus regimen of insulin with Lantus/Humalog. Continueto monitor closely. Essential hypertension. Continue Lopressor 25 mg b.i.d.. Continue amlodipine 10 mg daily. Fen. Continue to monitor electrolytes. Disposition: Patient now stable and compensated. Now on hemodialysis scheduled. Outpatient dialysis center set up currently underway. Discharge planning: Will need placement planning as well as outpatient dialysis set up Expected date of discharge: 10/21/2023 My total encounter time on 10/19/2023 was 36 minutes which was spent in the activities documented inthe note. This includes time spent prior to the visit and after the visit in direct care of the patient. This time does not include time spent in any separately reportable services. Gill Gamboa MD Hospitalist [phone] :37 AM * Nemo Diop, [facility] - 10/19/2023 3:22 PM CDT Physical Therapy PT PROGRESS NOTE PATIENT'S NAME:Sixto Chakraborty :1950 AGE:72 y.o. ROOM:[place] [id number] Past Medical History: Diagnosis Date Anemia Arthritis CHF (congestive heart failure) ([facility]) ([facility]) Dementia ([facility]) Depression Diabetic neuropathy ([facility]) GERD (gastroesophageal reflux disease) HL (hearing loss) Hyperlipidemia Hypertension Movement disorder Osteomyelitis (HCC) Renal disorder Schizophrenia ([facility]) Type 2 diabetes mellitus ([facility]) Past Surgical History: Procedure Laterality Date SECTION Right right foot EYE SURGERY cataracts TOE AMPUTATION Right 01/06/2020 4th toe amp/ foot debridement/ Dr. Anat Pelayo TUNNELED LINE PLACEMENT > 5 YEARS N/A 10/15/2023 Patient Active Problem List Diagnosis Diabetic neuropathy ([facility]) Type 2 diabetes mellitus with diabetic neuropathy, with long-term current use of insulin ([facility]) Primary hypertension Amputation of toe of right foot ([facility]) ([facility]) Iron deficiency anemia Gastroesophageal reflux disease without esophagitis Mixed hyperlipidemia Schizoaffective disorder, bipolar type ([facility]) ([facility]) 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 2 diabetes mellitus ([facility]) ([facility]) Encounter for Medicare annual wellness exam Late onset Alzheimer's dementia without behavioral disturbance ([facility]) Volume overload Anemia Toe necrosis ([facility]) ([facility]) Physical deconditioning Left leg DVT ([facility]) Pulmonary nodule Retention of urine, unspecified Unspecified osteoarthritis, unspecified site Unsteadiness on feet Weakness Parkinsonism ([facility]) Wheezing Anemia in stage 4 chronic kidney disease ([facility]) Osteomyelitis of great toe of right foot ([facility]) ([facility]) Abnormal urinalysis Acute kidney injury superimposed on CKD (HCC) Acute on chronic diastolic congestive heart failure ([facility]) ([facility]) Bibasilar consolidations Movement disorder Shortness of breath GI bleed Bandemia Leg swelling Diabetes mellitus with hyperglycemia ([facility]) ([facility]) Dyslipidemia Alzheimer's dementia ([facility]) TIME IN: 1516 TIME OUT: 1542 SUBJECTIVE Patient reports she needs to go to the bathroom MENTAL STATUS/ORIENTATION: Alert and oriented x name, , current month and place, not current year PAIN: Pre-therapy pain level: 0/10 Pain location: n/a Pain intervention: n/a Post-therapy pain level/response to intervention: no c/o pain OBJECTIVE PRECAUTIONS: fall, bed / chair alarm, safety, and elopement APPEARANCE/POSTURE: supine in bed sitter in room with patient VITAL SIGNS: Resting BP: 133/71 Resting heart rate: 63 Post-activity heart rate: 68 Resting O2 sat: 100% Post-activity O2 sat: 98% MOBILITY DOCUMENTATION: Bed Mobility/Transfers: supine to sit SBA, sit to/from stand SBA Gait: amb 16' x 1 26'x1 no device CG assist and 200' x 1 w/w SBA slow lanny, decreased step length, decreased foot clearance TREATMENT: Sitting le ex x 10 reps Continent episode to urinate using standard toilet SBA APPEARANCE/POSTURE (end of session): sitting in bed side chair call light next to patient, alarm onand in place sitter in room with patient EDUCATION:therapeutic exercises , functional transfer training, gait training , strengthening, and safety RESPONSE TO EDUCATION: demonstrated understanding and needs reinforcement ASSESSMENT Activity tolerance/response to P.T.: patient sharad tx session w/o complaints, able to amb 200' w/w SBA Barriers to learning: Physical and Cognitive Barriers to discharge: Medical complications Patient continues progressing toward previously set goals which remain appropriate at this time. PLAN PT Discharge Recommendations this date: PT Recommendation/Plan: Home with family, Home with 24 hour supervision, Home Health PT Patient at high risk for: Falls, Readmission, Injury due to decreased ability to care for self, Injury at home as patient has not returned to prior level of function, Injury due to impaired cognition, Improper use of DME, Injury due to reduced functional status, Injury due to balance deficits, Prolonged dependence for self care tasks PT Frequency during current admission: 3-5x/wk CARE PLAN Multi-Disciplinary Problems (from Physical Therapy) Active Problems Problem: PT Misc Start Date: 10/08/23 Goal Start Date Expected End Date End Date PT STG - Patient will ambulate 100 ft x 2 with a w/w with mod indep. 10/08/23 10/15/23 -- Progressing Goal Start Date Expected End Date End Date PT STG - Patient will perform sit to/from stand with a w/w with mod indep. 10/08/23 10/15/23 -- Progressing Goal Start Date Expected End Date End Date PT STG - Patient will tolerate assessment of 1-step on one occasion. 10/08/23 10/15/23 -- Progressing Goal Start Date Expected End Date End Date PT STG - Patient will perform HEP mod indep. 10/08/23 10/15/23 -- Progressing If this is the last note, please consider this the discharge summary. Cosigned by Mindy William, PT at 10/19/2023 4:13 PM CDT * Nemo Diop [facility] - 10/19/2023 10:07 AM CDT Physical Therapy Patient unavailable, dialysis, will attempt to see patient later as time allows and patient is available * Sarthak Lyles MD - 10/19/2023 8:28 AM CDT [facility]- Cardiology Daily Progress - Sarthak Lyles MD, [facility] SUBJECTIVE: Ms. Banksgers up in bed no chest pains or shortness of breath says the breathing has improved since admission and leg swelling has improved admit to diastolic CHF exacerbation blood pressures overall are better controlled OBJECTIVE: Vitals: 10/18/23 1500 10/18/23 2047 10/19/23 0443 10/19/23 0729 BP: 149/77 134/47 129/53 126/73 BP Location: Right arm Right arm Right arm Right arm Patient Position: Lying Lying Lying Pulse: 64 64 56 64 Resp: 18 17 16 18 Temp: 36.8 ??C (98.2 ??F) 37 ??C (98.6 ??F) 36.8 ??C (98.2 ??F) 36.6 ??C (97.9 ??F) TempSrc: Oral Temporal Axillary Oral SpO2: 96% 95% 95% 97% Weight: Height: No intake/output data recorded. No intake/output data recorded. Scheduled Medications Medication Dose Route Frequency atorvastatin (LIPITOR) tablet 20 mg 20 mg oral Nightly benztropine (COGENTIN) tablet 1.5 mg 1.5 mg oral Nightly calcium acetate(phosphat bind) (PHOSLO) capsule 667 mg 667 mg oral TID with meals enoxaparin (LOVENOX) syringe 30 mg 30 mg subcutaneous Daily-2099 famotidine (PEPCID) tablet 10 mg 10 mg oral Daily ferrous sulfate delayed release tablet 65 mg of elemental iron 65 mg of elemental iron oral BID fluticasone propionate (FLONASE) 50 mcg/actuation nasal spray 2 spray 2 spray each nostril Daily insulin glargine (LANTUS, SEMGLEE) 100 unit/mL injection 15 Units 0.25 Units/kg subcutaneous Nightly insulin lispro (HumaLOG, ADMELOG) 100 unit/mL injection 0-10 Units 0-10 Units subcutaneous TID withmeals insulin lispro (HumaLOG, ADMELOG) 100 unit/mL injection 0-5 Units 0-5 Units subcutaneous Nightly insulin lispro (HumaLOG, ADMELOG) 100 unit/mL injection 5 Units 0.083 Units/kg subcutaneous TID with meals metoprolol tartrate (LOPRESSOR) immediate release split tablet 6.25 mg 6.25 mg oral BID polyethylene glycol (MIRALAX) packet 17 g 17 g oral Daily risperiDONE (RisperDAL) tablet 1 mg 1 mg oral Nightly General: No acute distress Neuro: Awake and alert HEENT: NCAT Neck: No JVD Chest: Diminished breath sounds bilaterally. No rales, rhonchi, or wheezes noted Cardiac: Regular S1, S2, Normal rate. No murmurs, rubs, or gallops noted. Extremities: No LE edema. Psych: appropriate mood and normal affect LABS: Recent Labs Lab Units 10/17/23 0930 WBC K/cumm 8.5 HEMOGLOBIN g/dL 8.2* HEMATOCRIT % 25.9* PLATELETS K/cumm 253 Recent Labs Lab Units 10/19/23 0750 10/19/23 0723 10/19/23 0223 10/18/23 0737 10/18/23 0653 10/17/23 1341 10/17/23 0857 SODIUM mmol/L -- 138 -- -- 137 -- 135 POTASSIUM PLASMA mmol/L -- 4.5 -- -- 4.3 -- 4.0 CHLORIDE mmol/L -- 103 -- -- 100 -- 96* CO2 mmol/L -- 27 -- -- 27 -- 28 ANIONGAP mmol/L -- 8 -- -- 10 -- 11 GLUCOSE mg/dL -- 109 -- -- 94 -- 177 POC GLUCOSE MONITOR mg/dL 101 -- 150 < > -- < > -- BUN SERUM mg/dL -- 48* -- -- 28* -- 39* CREATININE mg/dL -- 4.08* -- -- 3.07* -- 3.81* CALCIUM mg/dL -- 9.2 -- -- 9.0 -- 8.8 ALBUMIN g/dL -- 3.0* -- -- 2.9* -- 2.9* < > = values in this interval not displayed. Recent Labs Lab Units 10/15/23 0650 APTT sec 36 INR 1.05 EKG: Results for orders placed during the hospital encounter of 10/06/23 ECG 12 lead Narrative Vent Rate: 74 bpm RR Interval: 801 msec OK Interval: 163 msec QRS Duration: 72 msec QT Interval: 389 msec QTC Interval: 417 msec P-R-T [place]: 62 - 20 - 207 degrees IMPRESSION: SINUS RHYTHM NONSPECIFIC T-WAVE ABNORMALITY Electronically Signed By: Ilan Ghotra MD, [facility] Results for orders placed or performed during the hospital encounter of 11/30/22 ECG 12 lead Result Value Ref Range Ventricular Rate EKG/Min 74 BPM Atrial Rate 74 BPM OK-Interval (MSEC) 170 ms QRS-Interval (MSEC) 66 ms QT-Interval (MSEC) 398 ms QTc 441 ms P [place] 64 degrees R [place] 17 degrees T [place] 17 degrees Diagnosis Normal sinus rhythm Low voltage QRS Borderline ECG When compared with ECG of 19-JUN-2022 11:28, No significant change was found Nuclear stress test from August 05, 2022 There is normal distribution of activity in the left and right ventricular myocardium on both stress and rest images. Gated post-stress images demonstrate normal left ventricular volume, normal left ventricular wall motion and normal ejection fraction of 67 % (normal >45%). Additional gated rest images demonstrate normal left ventricular wall motion and a resting left ventricular ejection fraction of 61. Incidental findings on the low-dose CT images: Mild calcification noted within the coronary arteries. A 4 mm left lower lobe pulmonary granuloma. IMPRESSION: 1. Normal exercise and rest myocardial perfusion. 2. Normal left ventricular size and systolic function. 3. Mild coronary artery calcifications Echocardiogram December 08, 2022 Conclusions: Normal left ventricular size. Normal left ventricular systolic function with no focal wall motion abnormalities. Ejection fraction is measured at 65 %. Normal structure of the tricuspid valve. Moderate pulmonary hypertension based on right ventricular systolic pressure. Estimated peak RVSP is 50 mmHg. Mild tricuspid regurgitation. Dilated IVC with respiratory collapse consistent with elevated right atrial pressure (10-15 mmHg). ASSESSMENT/PLAN: Volume overload - due to CKD stage 4 on IV diuresis as per Nephrology -improvement of leg swelling for for for CKD stage IV -nephrology is managing seen by Dr. Choi -significant fluctuation of renal function noted Acute on chronic diastolic heart failure - normal LV function on recent echocardiogram is noted above Elevated troponin due to renal dysfunction - does not represent ACS - nonischemic MPI recently as noted above Essential hypertension -BP stable Diabetes mellitus type 2 -A1c was 8.2 Iron deficiency anemia - hemoglobin stable -chronic anemia Sarthak Lyles MD, [facility] [employer] [phone] [facility] 10/19/2023 8:28 AM * Anil Wong MD - 10/18/2023 3:27 PM CDT Nephrology Daily Progress [facility]# [id number] #: [id number] Phone#: [phone] #: 1950 Subjective Interval History: Alert, confused. Objective Vitals: 24hr Min/Max: Temp Min: 36.3 ??C (97.3 ??F) Max: 36.7 ??C (98.1 ??F) Pulse Min: 59 Max: 70 BP Min: 111/50 Max: 157/78 Resp Min: 18 Max: 18 SpO2 Min: 97 % Max: 98 % No intake or output data in the 24 hours ending 10/18/23 1527 Wt Readings from Last 3 Encounters: 10/15/23 61.6 kg (135 lb 12.8 oz) 09/03/23 58.5 kg (129 lb) 08/03/23 58.2 kg (128 lb 6.4 oz) Temp Av.6 ??C (97.8 ??F) Min: 36.3 ??C (97.3 ??F) Max: 36.7 ??C (98.1 ??F) BP Min: 111/50 Max: 157/78 Pulse Av Min: 59 Max: 70 Resp Av Min: 18 Max: 18 SpO2 Av.7 % Min: 97 % Max: 98 % Most Recent: Vitals: 10/18/23 0700 BP: 157/78 Pulse: 70 Resp: 18 Temp: 36.3 ??C (97.3 ??F) SpO2: 97% I/O last 2 completed shifts: In: 1000 [I.V.:500; Other:500] Out: 1500 [Other:1500] No intake/output data recorded. Current Facility-Administered Medications Medication Dose Route Frequency Last Rate Last Admin acetaminophen (TYLENOL) tablet 650 mg 650 mg oral Q6H PRN 650 mg at 10/18/23 1226 albumin 25 % bottle 25 g 25 g intravenous PRN atorvastatin (LIPITOR) tablet 20 mg 20 mg oral Nightly 20 mg at 10/17/232134 benztropine (COGENTIN) tablet 1.5 mg 1.5 mg oral Nightly 1.5 mg at 10/17/232134 calcium acetate(phosphat bind) (PHOSLO) capsule 667 mg 667 mg oral TID with meals 667 mg at 10/18/23 1300 dextrose oral liquid liquid 15 g 15 g oral Q15 Min PRN Or dextrose (D10W) 10% bolus 250 mL 250 mL intravenous Q15 Min PRN enoxaparin (LOVENOX) syringe 30 mg 30 mg subcutaneous Daily-2100 30 mg at 10/17/232136 famotidine (PEPCID) tablet 10 mg 10 mg oral Daily 10 mg at 10/18/23 0900 ferrous sulfate delayed release tablet 65 mg of elemental iron 65 mg of elemental iron oral BID 65 mg of elemental iron at 10/18/23 0900 fluticasone propionate (FLONASE) 50 mcg/actuation nasal spray 2 spray 2 spray each nostril Daily 2 spray at 10/18/23 0901 glucagon injection 1 mg 1 mg intramuscular Q30 Min PRN insulin glargine (LANTUS, SEMGLEE) 100 unit/mL injection 15 Units 0.25 Units/kg subcutaneous Nightly 15 Units at 10/17/232136 insulin lispro (HumaLOG, ADMELOG) 100 unit/mL injection 0-10 Units 0-10 Units subcutaneous TID withmeals 1 Units at 04/26/24 1736 insulin lispro (HumaLOG, ADMELOG) 100 unit/mL injection 0-5 Units 0-5 Units subcutaneous Nightly 1 Units at 10/16/232127 insulin lispro (HumaLOG, ADMELOG) 100 unit/mL injection 5 Units 0.083 Units/kg subcutaneous TID with meals 5 Units at 10/18/23 1300 metoprolol tartrate (LOPRESSOR) immediate release split tablet 6.25 mg 6.25 mg oral BID 6.25 mg at 10/18/23 0900 OLANZapine (ZyPREXA) 2.5 mg in sterile water 0.5 mL (5 mg/mL) syringe 2.5 mg intramuscular Q12H PRN OLANZapine (ZyPREXA) tablet 2.5 mg 2.5 mg oral BID PRN ondansetron (ZOFRAN) injection 4 mg 4 mg intravenous Q6H PRN polyethylene glycol (MIRALAX) packet 17 g 17 g oral Daily 17 g at 10/18/23 0900 ramelteon (ROZEREM) tablet 8 mg 8 mg oral Nightly PRN 8 mg at 10/13/232252 risperiDONE (RisperDAL) tablet 1 mg 1 mg oral Nightly 1 mg at 10/17/23 213 Continuous Medications Medication Dose Last Rate Physical Exam: General Appearance: Alert, cooperative, confused Lungs: Decreased breath sounds bilaterally Cardiovascular: Regular rate and rhythm, S1 and S2 normal, no murmur, rub or gallop Abdomen: Soft, non-tender, bowel sounds active all four quadrants, non-distended Extremities: Extremities normal, no LE edema Psychosocial: Normal affect and mood Lab/Radiology/Diagnostic Review: Recent Labs Lab Units 10/18/23 1238 10/18/23 0737 10/18/23 0653 10/17/23 1341 10/17/23 0857 10/16/23 0803 10/16/23 0654 SODIUM mmol/L -- -- 137 -- 135 -- 140 POTASSIUM PLASMA mmol/L -- -- 4.3 -- 4.0 -- 4.0 CHLORIDE mmol/L -- -- 100 -- 96* -- 103 CO2 mmol/L -- -- 27 -- 28 -- 23 BUN SERUM mg/dL -- -- 28* -- 39* -- 62* CREATININE mg/dL -- -- 3.07* -- 3.81* -- 4.49* [id number] mL/min/1.73 m2 -- -- 16* -- 12* -- 10* GLUCOSE mg/dL -- -- 94 -- 177 -- 186 POC GLUCOSE MONITOR mg/dL 128 < > -- < > -- < > -- CALCIUM mg/dL -- -- 9.0 -- 8.8 -- 8.5 ALBUMIN g/dL -- -- 2.9* -- 2.9* -- 2.6* PHOSPHORUS PLASMA mg/dL -- -- 3.6 -- 4.1 -- 4.7* < > = values in this interval not displayed. Additional Labs: Recent Labs Lab Units 10/17/23 0930 WBC K/cumm 8.5 HEMOGLOBIN g/dL 8.2* HEMATOCRIT % 25.9* PLATELETS K/cumm 253 )Assessment/Plan 1. ESRD: next dialysis tomorrow 2. Hypertension: Adjust blood pressure medicines as needed As off 10/16/2023 BP is low, hold BP meds 3. Edema: Mostly due to pulmonary hypertension and chronic kidney disease. Ongoing diuresis. Expectsome rise in creatinine with diuresis. As off 10/11/2023 edema is better. Diuretics on hold 4. Metabolic acidosis: Due to renal failure. 5. Hyperphosphatemiaorus: will add a binder * Gill Gamboa MD - 10/18/2023 12:21 PM CDT General Medicine Progress Note Interval Events: This is a 72-year-old female with history of arthritis, CHF, dementia, depression, diabetic neuropathy, hyperlipidemia, advance insufficiency who came to the hospital with complaint of lower extremity swelling. Clinical findings associated with volume overload associated with severe renal and worsening renal insufficiency. Patient is now advanced to end-stage renal disease and is now status post hemodialysis catheter placement. Patient has now been on hemodialysis. Nephrology getting dialysis treatment. Social service to help assist with placement for placement planning as well as outpatient dialysis. Subjective: Chief complaint: Shortness of breath. Patient seen in her room. Resting comfortably. No new complaints Objective: Vitals: 24hr Min/Max: Temp Min: 36.3 ??C (97.3 ??F) Max: 36.7 ??C (98.1 ??F) Pulse Min: 54 Max: 70 BP Min: 111/50 Max: 157/78 Resp Min: 18 Max: 20 SpO2 Min: 97 % Max: 98 % Most Recent: Vitals: 10/17/23 1500 10/17/23202410/18/23 0436 10/18/23 0700 BP: 125/69 118/53 111/50 157/78 BP Location: Left arm Left arm Right arm Right arm Patient Position: Lying;HOB 30 degrees Lying;HOB 30 degrees Pulse: 65 63 59 70 Resp: 18 18 Temp: 36.7 ??C (98.1 ??F) 36.6 ??C (97.9 ??F) 36.7 ??C (98.1 ??F) 36.3 ??C (97.3 ??F) TempSrc: Oral Axillary Oral Oral SpO2: 97% 98% 98% 97% Weight: Height: Intake/Output Summary (Last 24 hours) at 10/18/2023 1225 Last data filed at 10/17/2023 1248 Gross per 24 hour Intake 1000 ml Output 1500 ml Net -500 ml Physical Exam: Physical Exam GEN: Alert. NAD HENT: Normocephalic. Atraumatic. CVS: RRR CHEST: Coarse breath sounds bilaterally ABD: soft. ND EXT: no edema Lab/Radiology/Diagnostic Review: Reviewed. Recent Results (from the past 24 hour(s)) POCT glucose Collection Time: 10/17/23 1:41 PM Result Value Ref Range Glucose, POC 125 70 - 199 mg/dL POCT glucose Collection Time: 10/17/23 5:42 PM Result Value Ref Range Glucose, POC 146 70 - 199 mg/dL POCT glucose Collection Time: 10/17/23 9:24 PM Result Value Ref Range Glucose, POC 89 70 - 199 mg/dL POCT glucose Collection Time: 10/18/23 2:08 AM Result Value Ref Range Glucose, POC 86 70 - 199 mg/dL Renal function panel Collection Time: 10/18/23 6:53 AM Result Value Ref Range Sodium 137 135 - 145 mmol/L Potassium, pl 4.3 3.3 - 4.9 mmol/L Chloride 100 97 - 110 mmol/L CO2 27 22 - 32 mmol/L Anion gap 10 2 - 15 mmol/L BUN 28 (H) 6 - 25 mg/dL Creatinine 3.07 (H) 0.60 - 1.10 mg/dL Glucose 94 70 - 199 mg/dL Calcium 9.0 8.5 - 10.3 mg/dL Phosphorus, pl 3.6 2.3 - 4.5 mg/dL Albumin 2.9 (L) 3.5 - 5.0 g/dL eGFR Collection Time: 10/18/23 6:53 AM Result Value Ref Range eGFR 16 (L) >=60 mL/min/1.73 m2 POCT glucose Collection Time: 10/18/23 7:37 AM Result Value Ref Range Glucose, POC 88 70 - 199 mg/dL Assessment and Plan: Principal Problem: Acute on chronic diastolic congestive heart failure (CMS/HCC) ([facility]) Active Problems: Diabetic neuropathy ([facility]) Type 2 diabetes mellitus with diabetic neuropathy, with long-term current use of insulin ([facility]) Primary hypertension Gastroesophageal reflux disease without esophagitis Mixed hyperlipidemia Schizoaffective disorder, bipolar type (CMS/HCC) ([facility]) Anemia in stage 4 chronic kidney disease ([facility]) Acute kidney injury superimposed on CKD ([facility]) Leg swelling Diabetes mellitus with hyperglycemia ([facility]/HCC) ([facility]) Dyslipidemia Alzheimer's dementia ([facility]) Acute hypoxemic respiratory failure. Respiratory status completely stable. Doing well. No new issues. End-stage renal disease. Now on hemodialysis. Nephrology guiding dialysis treatment. Patient has now had 3 days of consecutive dialysis. Acute on chronic diastolic congestive heart failure. Volume management per Nephrology. Stable and compensated at this time. Acute on chronic diastolic congestive heart failure exacerbation. Volume management per Nephrology. Type 2 diabetes. Continue with current basal-bolus regimen of insulin with Lantus/Humalog. Continueto monitor closely. Essential hypertension. Continue Lopressor 25 mg b.i.d.. Continue amlodipine 10 mg daily. Fen. Continue to monitor electrolytes. Disposition: Patient now advanced to renal insufficiency with hemodialysis. Patient has now had 3 days of consecutive dialysis. Outpatient planning is underway Discharge planning: Will need placement planning as well as outpatient dialysis set up Expected date of discharge: 10/20/2023 My total encounter time on 10/18/2023 was 36 minutes which was spent in the activities documented inthe note. This includes time spent prior to the visit and after the visit in direct care of the patient. This time does not include time spent in any separately reportable services. Gill Gamboa MD Hospitalist [phone] 2:25 PM * William Velasquez MD - 10/18/2023 11:11 AM CDT Daily Progress [facility] Cardiology Subjective: Complains of pain in the legs. Wants to know when she will be discharged from the hospital. Denies any chest pain OBJECTIVE: Past Medical History: Diagnosis Date Anemia Arthritis CHF (congestive heart failure) (CMS/HCC) (HCC) Dementia (HCC) Depression Diabetic neuropathy (HCC) GERD (gastroesophageal reflux disease) HL (hearing loss) Hyperlipidemia Hypertension Movement disorder Osteomyelitis (HCC) Renal disorder Schizophrenia (HCC) Type 2 diabetes mellitus (HCC) Family History Problem Relation Age of Onset Diabetes Mother Heart disease Mother Kidney disease Mother Stomach cancer Father Alcohol abuse Father Diabetes Sister Diabetes Sister Diabetes Brother Scheduled Medications Medication Dose Route Frequency atorvastatin (LIPITOR) tablet 20 mg 20 mg oral Nightly benztropine (COGENTIN) tablet 1.5 mg 1.5 mg oral Nightly calcium acetate(phosphat bind) (PHOSLO) capsule 667 mg 667 mg oral TID with meals enoxaparin (LOVENOX) syringe 30 mg 30 mg subcutaneous Daily-2100 famotidine (PEPCID) tablet 10 mg 10 mg oral Daily ferrous sulfate delayed release tablet 65 mg of elemental iron 65 mg of elemental iron oral BID fluticasone propionate (FLONASE) 50 mcg/actuation nasal spray 2 spray 2 spray each nostril Daily insulin glargine (LANTUS, SEMGLEE) 100 unit/mL injection 15 Units 0.25 Units/kg subcutaneous Nightly insulin lispro (HumaLOG, ADMELOG) 100 unit/mL injection 0-10 Units 0-10 Units subcutaneous TID withmeals insulin lispro (HumaLOG, ADMELOG) 100 unit/mL injection 0-5 Units 0-5 Units subcutaneous Nightly insulin lispro (HumaLOG, ADMELOG) 100 unit/mL injection 5 Units 0.083 Units/kg subcutaneous TID with meals metoprolol tartrate (LOPRESSOR) immediate release split tablet 6.25 mg 6.25 mg oral BID polyethylene glycol (MIRALAX) packet 17 g 17 g oral Daily risperiDONE (RisperDAL) tablet 1 mg 1 mg oral Nightly Exam: Gen: Comfortable, NAD CVS: RRR, S1, S2 present, systolic murmur GI: Soft Non tender Chest: Air entry reduced CTAB Psych: Appropriate mood and affect Neuro: Alert, oriented, No deficits. Recent Labs Lab Units 10/17/23 0930 WBC K/cumm 8.5 HEMOGLOBIN g/dL 8.2* HEMATOCRIT % 25.9* PLATELETS K/cumm 253 Recent Labs Lab Units 10/18/23 0737 10/18/23 0653 10/18/23 0208 10/17/23 2124 10/17/23 1742 10/17/23 1341 10/17/23 0857 10/16/23 0803 10/16/23 0654 10/15/23 1255 10/15/23 0650 10/14/23 0747 10/14/23 0613 SODIUM mmol/L -- 137 -- -- -- -- 135 -- 140 -- 140 -- 141 POTASSIUM PLASMA mmol/L -- 4.3 -- -- -- -- 4.0 -- 4.0 -- 4.6 -- 4.8 CHLORIDE mmol/L -- 100 -- -- -- -- 96* -- 103 -- 110 -- 111* CO2 mmol/L -- 27 -- -- -- -- 28 -- 23 -- 19* -- 19* ANIONGAP mmol/L -- 10 -- -- -- -- 11 -- 14 -- 11 -- 11 GLUCOSE mg/dL -- 94 -- -- -- -- 177 -- 186 -- 161 -- 227* POC GLUCOSE MONITOR mg/dL 88 -- 86 89 146 < > -- < > -- < > -- < > -- BUN SERUM mg/dL -- 28* -- -- -- -- 39* -- 62* -- 88* -- 78* CREATININE mg/dL -- 3.07* -- -- -- -- 3.81* -- 4.49* -- 5.44* -- 5.09* CALCIUM mg/dL -- 9.0 -- -- -- -- 8.8 -- 8.5 -- 8.5 -- 8.3* ALBUMIN g/dL -- 2.9* -- -- -- -- 2.9* -- 2.6* -- 2.8* -- 2.7* < > = values in this interval not displayed. Recent Labs Lab Units 10/15/23 0650 APTT sec 36 INR 1.05 Intake/Output Summary (Last 24 hours) at 10/18/2023 1111 Last data filed at 10/17/2023 1248 Gross per 24 hour Intake 1000 ml Output 1500 ml Net -500 ml Vitals: 10/17/23 1500 10/17/23202410/18/23 0436 10/18/23 0700 BP: 125/69 118/53 111/50 157/78 BP Location: Left arm Left arm Right arm Right arm Patient Position: Lying;HOB 30 degrees Lying;HOB 30 degrees Pulse: 65 63 59 70 Resp: 18 18 Temp: 36.7 ??C (98.1 ??F) 36.6 ??C (97.9 ??F) 36.7 ??C (98.1 ??F) 36.3 ??C (97.3 ??F) TempSrc: Oral Axillary Oral Oral SpO2: 97% 98% 98% 97% Weight: Height: ASSESSMENT/PLAN: Patient Active Problem List Diagnosis Diabetic neuropathy ([facility]) Type 2 diabetes mellitus with diabetic neuropathy, with long-term current use of insulin ([facility]) Primary hypertension Amputation of toe of right foot ([facility]) ([facility]) Iron deficiency anemia Gastroesophageal reflux disease without esophagitis Mixed hyperlipidemia Schizoaffective disorder, bipolar type ([facility]) ([facility]) 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 2 diabetes mellitus ([facility]) ([facility]) Encounter for Medicare annual wellness exam Late onset Alzheimer's dementia without behavioral disturbance ([facility]) Volume overload Anemia Toe necrosis ([facility]) ([facility]) Physical deconditioning Left leg DVT ([facility]) Pulmonary nodule Retention of urine, unspecified Unspecified osteoarthritis, unspecified site Unsteadiness on feet Weakness Parkinsonism ([facility]) Wheezing Anemia in stage 4 chronic kidney disease ([facility]) Osteomyelitis of great toe of right foot ([facility]) (HCC) Abnormal urinalysis Acute kidney injury superimposed on CKD (HCC) Acute on chronic diastolic congestive heart failure (CMS/HCC) (HCC) Bibasilar consolidations Movement disorder Shortness of breath GI bleed Bandemia Leg swelling Diabetes mellitus with hyperglycemia (CMS/HCC) (HCC) Dyslipidemia Alzheimer's dementia (HCC) Acute on chronic diastolic heart failure - due to CKD stage 4 on IV diuresis as per Nephrology - on dialysis for volume management -nephrology is managing - normal LV function on recent echocardiogram - moderate pulmonary hypertension likely due to left-sided heart failure Elevated troponin due to renal dysfunction - does not represent ACS - nonischemic MPI recently Essential hypertension -BP stable Diabetes mellitus type 2 Iron deficiency anemia - hemoglobin stable AMS on presentation - appears to be at baseline, she has Alzheimer's disease William Velasquez MD, [facility], [facility], [facility] [phone] 10/18/2023 11:11 AM * Anil Wong MD - 10/17/2023 12:53 PM CDT Nephrology Daily Progress [facility]# [id number] SS#: [id number] Phone#: [phone] #: [id number] Subjective Interval History: confused. Objective Vitals: 24hr Min/Max: Temp Min: 36.7 ??C (98.1 ??F) Max: 37.1 ??C (98.7 ??F) Pulse Min: 58 Max: 65 BP Min: 107/62 Max: 134/53 Resp Min: 18 Max: 19 SpO2 Min: 94 % Max: 98 % Intake/Output Summary (Last 24 hours) at 10/17/2023 1253 Last data filed at 10/16/2023 1430 Gross per 24 hour Intake 222 ml Output -- Net 222 ml Wt Readings from Last 3 Encounters: 10/15/23 61.6 kg (135 lb 12.8 oz) 09/03/23 58.5 kg (129 lb) 08/03/23 58.2 kg (128 lb 6.4 oz) Temp Av.9 ??C (98.5 ??F) Min: 36.7 ??C (98.1 ??F) Max: 37.1 ??C (98.7 ??F) BP Min: 107/62 Max: 134/53 Pulse Av.8 Min: 58 Max: 65 Resp Av.3 Min: 18 Max: 19 SpO2 Av % Min: 94 % Max: 98 % Most Recent: Vitals: 10/17/23 0753 BP: 107/62 Pulse: 58 Resp: 18 Temp: 36.9 ??C (98.4 ??F) SpO2: 94% I/O last 2 completed shifts: In: 1342 [P.O.:342; I.V.:500; Other:500] Out: 1500 [Other:1500] No intake/output data recorded. Current Facility-Administered Medications Medication Dose Route Frequency Last Rate Last Admin acetaminophen (TYLENOL) tablet 650 mg 650 mg oral Q6H PRN 650 mg at 10/12/23 1111 albumin 25 % bottle 25 g 25 g intravenous PRN atorvastatin (LIPITOR) tablet 20 mg 20 mg oral Nightly 20 mg at 10/16/232125 benztropine (COGENTIN) tablet 1.5 mg 1.5 mg oral Nightly 1.5 mg at 10/16/232125 calcium acetate(phosphat bind) (PHOSLO) capsule 667 mg 667 mg oral TID with meals 667 mg at 10/17/2324 dextrose oral liquid liquid 15 g 15 g oral Q15 Min PRN Or dextrose (D10W) 10% bolus 250 mL 250 mL intravenous Q15 Min PRN enoxaparin (LOVENOX) syringe 30 mg 30 mg subcutaneous Daily-2100 30 mg at 10/16/232127 famotidine (PEPCID) tablet 10 mg 10 mg oral Daily 10 mg at 10/17/2324 ferrous sulfate delayed release tablet 65 mg of elemental iron 65 mg of elemental iron oral BID 65 mg of elemental iron at 10/17/23823 fluticasone propionate (FLONASE) 50 mcg/actuation nasal spray 2 spray 2 spray each nostril Daily 2 spray at 10/15/23 1301 glucagon injection 1 mg 1 mg intramuscular Q30 Min PRN insulin glargine (LANTUS, SEMGLEE) 100 unit/mL injection 15 Units 0.25 Units/kg subcutaneous Nightly 15 Units at 10/16/232127 insulin lispro (HumaLOG, ADMELOG) 100 unit/mL injection 0-10 Units 0-10 Units subcutaneous TID withmeals 1 Units at 10/16/231735 insulin lispro (HumaLOG, ADMELOG) 100 unit/mL injection 0-5 Units 0-5 Units subcutaneous Nightly 1 Units at 10/16/232127 insulin lispro (HumaLOG, ADMELOG) 100 unit/mL injection 5 Units 0.083 Units/kg subcutaneous TID with meals 5 Units at 10/17/2324 metoprolol tartrate (LOPRESSOR) immediate release split tablet 6.25 mg 6.25 mg oral BID OLANZapine (ZyPREXA) 2.5 mg in sterile water 0.5 mL (5 mg/mL) syringe 2.5 mg intramuscular Q12H PRN OLANZapine (ZyPREXA) tablet 2.5 mg 2.5 mg oral BID PRN ondansetron (ZOFRAN) injection 4 mg 4 mg intravenous Q6H PRN polyethylene glycol (MIRALAX) packet 17 g 17 g oral Daily 17 g at 10/17/23 0824 ramelteon (ROZEREM) tablet 8 mg 8 mg oral Nightly PRN 8 mg at 10/13/232252 risperiDONE (RisperDAL) tablet 1 mg 1 mg oral Nightly 1 mg at 10/16/232125 Continuous Medications Medication Dose Last Rate Physical Exam: General Appearance: Alert, cooperative, confused Head: Normocephalic, without obvious abnormality, atraumatic Eyes: PERRL, conjunctiva/corneas clear, EOM's intact, both eyes, anicteric Neck: Supple, symmetrical, trachea midline, no adenopathy; thyroid: No enlargement/tenderness/nodules; no carotid bruits, No JVD Lungs: Decreased breath sounds bilaterally Cardiovascular: Regular rate and rhythm, S1 and S2 normal, no murmur, rub or gallop Abdomen: Soft, non-tender, bowel sounds active all four quadrants, non-distended Extremities: Extremities normal, no LE edema Skin: Skin color, texture, turgor normal, no rashes, lesions or bruising Neurologic: Alert & oriented person, difficult time with orientation questions Psychosocial: Normal affect and mood Lab/Radiology/Diagnostic Review: Recent Labs Lab Units 10/17/23 0857 10/16/23 0803 10/16/23 0654 10/15/23 1255 10/15/23 0650 SODIUM mmol/L 135 -- 140 -- 140 POTASSIUM PLASMA mmol/L 4.0 -- 4.0 -- 4.6 CHLORIDE mmol/L 96* -- 103 -- 110 CO2 mmol/L 28 -- 23 -- 19* BUN SERUM mg/dL 39* -- 62* -- 88* CREATININE mg/dL 3.81* -- 4.49* -- 5.44* [id number] mL/min/1.73 m2 12* -- 10* -- 8* GLUCOSE mg/dL 177 -- 186 -- 161 POC GLUCOSE MONITOR -- < > -- < > -- CALCIUM mg/dL 8.8 -- 8.5 -- 8.5 ALBUMIN g/dL 2.9* -- 2.6* -- 2.8* PHOSPHORUS PLASMA mg/dL 4.1 -- 4.7* -- 6.2* < > = values in this interval not displayed. Additional Labs: Recent Labs Lab Units 10/17/23 0930 10/10/23 1808 WBC K/cumm 8.5 8.9 HEMOGLOBIN g/dL 8.2* 9.6* HEMATOCRIT % 25.9* 29.6* PLATELETS K/cumm 253 322 NEUTROS PCT % -- 71.5 LYMPHS PCT % -- 20.0 MONOS PCT % -- 6.4 EOS PCT % -- 1.5 )Assessment/Plan 1. ESRD: on dialysis now 2. Hypertension: Adjust blood pressure medicines as needed As off 10/16/2023 BP is low, hold BP meds 3. Edema: Mostly due to pulmonary hypertension and chronic kidney disease. Ongoing diuresis. Expectsome rise in creatinine with diuresis. As off 10/11/2023 edema is better. Diuretics on hold 4. Metabolic acidosis: Due to renal failure. If it goes any lower will need supplementation. 5. High phosphorus: will add a binder * Bev Adames MD - 10/17/2023 10:19 AM CDT DAILY PROGRESS NOTE C/C:Swollen legs Interval History: No new events SUBJECTIVE: Complaints: None ROS: OBJECTIVE: Vitals: Temp (24hrs), Av.9 ??C (98.4 ??F), Min:36.7 ??C (98.1 ??F), Max:37.1 ??C (98.7 ??F) Vitals: 10/16/23 1437 10/16/23 2032 10/17/23 0243 10/17/23 0753 BP: 134/53 132/59 118/67 107/62 BP Location: Right arm Right arm Left arm Patient Position: Lying Lying Lying Pulse: 60 64 65 58 Resp: 19 18 18 18 Temp: 36.7 ??C (98.1 ??F) 37 ??C (98.6 ??F) 37.1 ??C (98.7 ??F) 36.9 ??C (98.4 ??F) TempSrc: Oral Oral Oral Oral SpO2: 95% 98% 97% 94% Weight: Height: LDA: I/O: Intake/Output Summary (Last 24 hours) at 10/17/2023 1019 Last data filed at 10/16/2023 1430 Gross per 24 hour Intake 1342 ml Output 1500 ml Net -158 ml Physical Exam General:Lying in bed, sleeping, arousable,on RA,on HD,NAD SHEENT:Skin warm,dry,no rashes. No icterus,no cyanosis,no pallor Neck:Supple Respi:Slightly diminished breath sounds silverio Cardio:RRR,no murmur GI:Abdomen soft,bowel sounds +,non tender,not distended. Extre: No edema ,no cyanosis,no pallor Neuro:AAO x2 Psych:No agitation Laboratory: Recent Results (from the past 24 hour(s)) POCT glucose Collection Time: 10/16/23 1:19 PM Result Value Ref Range Glucose, POC 89 70 - 199 mg/dL POCT glucose Collection Time: 10/16/23 5:35 PM Result Value Ref Range Glucose, POC 166 70 - 199 mg/dL POCT glucose Collection Time: 10/16/23 8:41 PM Result Value Ref Range Glucose, POC 194 70 - 199 mg/dL POCT glucose Collection Time: 10/17/23 2:43 AM Result Value Ref Range Glucose, POC 101 70 - 199 mg/dL POCT glucose Collection Time: 10/17/23 6:43 AM Result Value Ref Range Glucose, POC 113 70 - 199 mg/dL Renal function panel Collection Time: 10/17/23 8:57 AM Result Value Ref Range Sodium 135 135 - 145 mmol/L Potassium, pl 4.0 3.3 - 4.9 mmol/L Chloride 96 (L) 97 - 110 mmol/L CO2 28 22 - 32 mmol/L Anion gap 11 2 - 15 mmol/L BUN 39 (H) 6 - 25 mg/dL Creatinine 3.81 (H) 0.60 - 1.10 mg/dL Glucose 177 70 - 199 mg/dL Calcium 8.8 8.5 - 10.3 mg/dL Phosphorus, pl 4.1 2.3 - 4.5 mg/dL Albumin 2.9 (L) 3.5 - 5.0 g/dL eGFR Collection Time: 10/17/23 8:57 AM Result Value Ref Range eGFR 12 (L) >=60 mL/min/1.73 m2 CBC without differential Collection Time: 10/17/23 9:30 AM Result Value Ref Range WBC 8.5 3.8 - 9.9 K/cumm Hgb 8.2 (L) 11.9 - 15.5 g/dL Hct 25.9 (L) 35.6 - 45.5 % Plt 253 150 - 400 K/cumm MPV 11.3 9.1 - 12.3 fL RBC 2.76 (L) 3.90 - 5.20 M/cumm MCV 93.8 81.3 - 96.4 fL MCH 29.7 27.1 - 33.3 pg MCHC 31.7 (L) 32.3 - 35.7 g/dL RDW CV 13.6 11.1 - 14.9 % RDW SD 46.6 35.7 - 48.1 fL NRBC abs 0.00 0.00 - 0.01 K/cumm Radiology: Scheduled Medications: atorvastatin, 20 mg, oral, Nightly benztropine, 1.5 mg, oral, Nightly calcium acetate(phosphat bind), 667 mg, oral, TID with meals enoxaparin, 30 mg, subcutaneous, Daily-2100 famotidine, 10 mg, oral, Daily ferrous sulfate, 65 mg of elemental iron, oral, BID fluticasone propionate, 2 spray, each nostril, Daily insulin glargine, 0.25 Units/kg, subcutaneous, Nightly insulin lispro, 0-10 Units, subcutaneous, TID with meals insulin lispro, 0-5 Units, subcutaneous, Nightly insulin lispro, 0.083 Units/kg, subcutaneous, TID with meals metoprolol tartrate, 6.25 mg, oral, BID polyethylene glycol, 17 g, oral, Daily risperiDONE, 1 mg, oral, Nightly Current Facility-Administered Medications: acetaminophen (TYLENOL) tablet 650 mg, 650 mg, oral, Q6H PRN, Rosa Jade NP, 650 mg at 10/12/23 1111 albumin 25 % bottle 25 g, 25 g, intravenous, PRN, Jimbo Strauss MD atorvastatin (LIPITOR) tablet 20 mg, 20 mg, oral, Nightly, Rosa Jade NP, 20 mg at 10/16/232125 benztropine (COGENTIN) tablet 1.5 mg, 1.5 mg, oral, Nightly, Bev Adames MD, 1.5 mg at 10/16/232125 calcium acetate(phosphat bind) (PHOSLO) capsule 667 mg, 667 mg, oral, TID with meals, Jimbo Strauss MD, 667 mg at 10/17/23823 dextrose oral liquid liquid 15 g, 15 g, oral, Q15 Min PRN OR dextrose (D10W) 10% bolus 250 mL, 250 mL, intravenous, Q15 Min PRN, Rosa Jade NP enoxaparin (LOVENOX) syringe 30 mg, 30 mg, subcutaneous, Daily-2099, Guera Guillaume MD, 30 mg at 10/16/232127 famotidine (PEPCID) tablet 10 mg, 10 mg, oral, Daily, Rosa Jade NP, 10 mg at 10/17/23823 ferrous sulfate delayed release tablet 65 mg of elemental iron, 65 mg of elemental iron, oral, BID,Rosa Jade NP, 65 mg of elemental iron at 10/17/23823 fluticasone propionate (FLONASE) 50 mcg/actuation nasal spray 2 spray, 2 spray, each nostril, Daily, Rosa Jade, JARAD, 2 spray at 10/15/23 1301 glucagon injection 1 mg, 1 mg, intramuscular, Q30 Min PRN, Rosa Jade, JARAD insulin glargine (LANTUS, SEMGLEE) 100 unit/mL injection 15 Units, 0.25 Units/kg, subcutaneous, Nightly, Rosa Jade, JARAD, 15 Units at 10/16/232127 insulin lispro (HumaLOG, ADMELOG) 100 unit/mL injection 0-10 Units, 0-10 Units, subcutaneous, TID with meals, Rosa Jade, JARAD, 1 Units at 10/16/231735 insulin lispro (HumaLOG, ADMELOG) 100 unit/mL injection 0-5 Units, 0-5 Units, subcutaneous, Nightly, Rosa Jade, JARAD, 1 Units at 10/16/232127 insulin lispro (HumaLOG, ADMELOG) 100 unit/mL injection 5 Units, 0.083 Units/kg, subcutaneous, TID with meals, Rosa Jade, JARAD, 5 Units at 10/17/23823 metoprolol tartrate (LOPRESSOR) immediate release split tablet 6.25 mg, 6.25 mg, oral, BID, Jimbo Strauss MD OLANZapine (ZyPREXA) 2.5 mg in sterile water 0.5 mL (5 mg/mL) syringe, 2.5 mg, intramuscular, Q12H PRN, Deepti Sands MD OLANZapine (ZyPREXA) tablet 2.5 mg, 2.5 mg, oral, BID PRN, Deepti Sands MD ondansetron (ZOFRAN) injection 4 mg, 4 mg, intravenous, Q6H PRN, Rosa Jade, JARAD polyethylene glycol (MIRALAX) packet 17 g, 17 g, oral, Daily, Gill Gamboa MD, 17 g at 10/17/2324 ramelteon (ROZEREM) tablet 8 mg, 8 mg, oral, Nightly PRN, Sujatha Montes De Ocar, CLINICAL NURSE LEADER, 8 mg at 10/13/232252 risperiDONE (RisperDAL) tablet 1 mg, 1 mg, oral, Nightly, Deepti Sands MD, 1 mg at 10/16/232125 Continuous Medications: PRN Medications: acetaminophen albumin dextrose OR dextrose glucagon OLANZapine OLANZapine ondansetron [facility] course: 72 y.o. AAF pt with a PMHx significant for Arthritis, HFpEF, Dementia, Depression, Diabetic neuropathy, HLD, HTN, Osteomyelitis, CKD IV, Schizophrenia, and IDDM presented to the ED with a chief complaint of lower extremity edema. ASSESSMENT/PLAN: All diagnoses were present on admission unless otherwise stated. Principal Problem: --Acute on chronic diastolic heart failure with Bilateral lower extremity edema -EF 65%, moderate pulmonary hypertension, mild tricuspid regurg by TTE November 2022 -volume overload likely secondary to advanced CKD -diuretics stopped outpatient due to worsening renal function Consulted Cardiology and Nephrology IV Lasix 40 mg b.i.d. was held due to rising Cr Edema resolved Continue Jerzy hose Continue daily weights, sodium restricted diet, fluid restriction Off Lasix 10/14 Started on HD Active problems: --STEFANO on CKD 4: BUN 54, creatinine 4.09, GFR 11 -baseline CKD 4 with a creatinine about 2.12 2.4 with advancement of disease since June, last check creatinine 3.6, BUN 48, GFR 13 in July 2023 -Consulted nephrology, following, managing diuresis -renal diet, fluid restriction -monitor electrolytes Worsening BUN/Cr Lasix is on hold eGFR 8 Low UO Will avoid nephrotoxic agents and hypotension. 10/14 Started on HD --Uncontrolled insulin-dependent type 2 diabetes with hyperglycemia and Diabetic neuropathy basal/bolus/SSI, a.c. and HS glucose checks, consistent carb diet not currently on gabapentin, likely secondary to advanced CKD BS 100-170 --Hypertension, uncontrolled Switched amlodipine to BB due to edema Now under fair control BB dose decreased Monitor closely --Anemia of chronic CKD No evidence of acute blood loss, monitor continue ferrous sulfate at home dose Hgb trending down, 8.2 now --GERD continue famotidine --HLD continue atorvastatin at home dose --Schizoaffective disorder/Dementia, Depression -continue risperidone, benztropine at home dose --Chronic NAGMA: From CKD . Bicarb trending down. Started PO Sodium bicarbonate 10/14 Started on HD Resolved D/Mark Sodium bicarbonate --Hyperphosphotemia:Sec to CKD Now resolved --AMS with confusion, incoherent, slurred speech 10/08: CT Head showed no acute intracranial findings UA neg CXR with mild PVC. Afebrile. No leukocytosis 10/09 Required Zyprexa. For agitation Likely sec to intercurrent illness superimposed on a dementia of the Alzheimer's type. Now AAO x 2 better than before Consulted Neurology, and Psychiatry S/P 1:1 sitter Decreased Risperdal to 1mg qhs. Added Olanzapine 2.5mg po or IM PRN psychosis or agitation Recommended to decrease Cogentin dose as this may increase confusion. Decreased to 1.5 mg qday. --Hypocalcemia: Corrected calcium normal DVT Prophylaxis with SQ Lovenox Code status: Full code D/W RN Medical Decision Making complexity: Moderate Discharge disposition:Home when ready Bev Adames MD 10/17/2023 10:19 AM [facility] – [place], [place], Hospitalist * William Velasquez MD - 10/17/2023 9:29 AM CDT Daily Progress [facility] Cardiology Subjective: Seen during dialysis denies any new complaints no chest pain shortness of breath leg swelling is resolving OBJECTIVE: Past Medical History: Diagnosis Date Anemia Arthritis CHF (congestive heart failure) (CMS/HCC) (HCC) Dementia (HCC) Depression Diabetic neuropathy (HCC) GERD (gastroesophageal reflux disease) HL (hearing loss) Hyperlipidemia Hypertension Movement disorder Osteomyelitis (HCC) Renal disorder Schizophrenia (HCC) Type 2 diabetes mellitus (HCC) Family History Problem Relation Age of Onset Diabetes Mother Heart disease Mother Kidney disease Mother Stomach cancer Father Alcohol abuse Father Diabetes Sister Diabetes Sister Diabetes Brother Scheduled Medications Medication Dose Route Frequency atorvastatin (LIPITOR) tablet 20 mg 20 mg oral Nightly benztropine (COGENTIN) tablet 1.5 mg 1.5 mg oral Nightly calcium acetate(phosphat bind) (PHOSLO) capsule 667 mg 667 mg oral TID with meals enoxaparin (LOVENOX) syringe 30 mg 30 mg subcutaneous Daily-2100 famotidine (PEPCID) tablet 10 mg 10 mg oral Daily ferrous sulfate delayed release tablet 65 mg of elemental iron 65 mg of elemental iron oral BID fluticasone propionate (FLONASE) 50 mcg/actuation nasal spray 2 spray 2 spray each nostril Daily heparin 1,000 unit/mL injection 1,500 Units 1,500 Units dialysis circuit Once heparin 1,000 unit/mL injection 1,500 Units 1,500 Units dialysis circuit Once heparin 1,000 unit/mL injection 1.5-6.9 mL 1.5-6.9 mL intra-catheter Once heparin 1,000 unit/mL injection 1.5-6.9 mL 1.5-6.9 mL intra-catheter Once insulin glargine (LANTUS, SEMGLEE) 100 unit/mL injection 15 Units 0.25 Units/kg subcutaneous Nightly insulin lispro (HumaLOG, ADMELOG) 100 unit/mL injection 0-10 Units 0-10 Units subcutaneous TID withmeals insulin lispro (HumaLOG, ADMELOG) 100 unit/mL injection 0-5 Units 0-5 Units subcutaneous Nightly insulin lispro (HumaLOG, ADMELOG) 100 unit/mL injection 5 Units 0.083 Units/kg subcutaneous TID with meals metoprolol tartrate (LOPRESSOR) immediate release split tablet 6.25 mg 6.25 mg oral BID polyethylene glycol (MIRALAX) packet 17 g 17 g oral Daily risperiDONE (RisperDAL) tablet 1 mg 1 mg oral Nightly Exam: Gen: Comfortable, NAD CVS: RRR, S1, S2 present, systolic murmur GI: Soft Non tender Chest: Air entry reduced CTAB Psych: Appropriate mood and affect Neuro: Alert, oriented, No deficits. Recent Labs Lab Units 10/10/23 1808 WBC K/cumm 8.9 HEMOGLOBIN g/dL 9.6* HEMATOCRIT % 29.6* PLATELETS K/cumm 322 Recent Labs Lab Units 10/17/23 0643 10/17/23 0243 10/16/23 2041 10/16/23 1735 10/16/23 1319 10/16/23 0803 10/16/23 0654 10/15/23 1255 10/15/23 0650 10/14/23 0747 10/14/23 0613 10/13/23 0742 10/13/23 0620 10/12/23 0815 10/12/23 0656 SODIUM mmol/L -- -- -- -- -- -- 140 -- 140 -- 141 -- 141 -- 143 POTASSIUM PLASMA mmol/L -- -- -- -- -- -- 4.0 -- 4.6 -- 4.8 -- 4.4 -- 4.0 CHLORIDE mmol/L -- -- -- -- -- -- 103 -- 110 -- 111* -- 110 -- 111* CO2 mmol/L -- -- -- -- -- -- 23 -- 19* -- 19* -- 19* -- 21* ANIONGAP mmol/L -- -- -- -- -- -- 14 -- 11 -- 11 -- 12 -- 11 GLUCOSE mg/dL -- -- -- -- -- -- 186 -- 161 -- 227* -- 137 -- 108 POC GLUCOSE MONITOR mg/dL 113 101 194 166 89 < > -- < > -- < > -- < > -- < > -- BUN SERUM mg/dL -- -- -- -- -- -- 62* -- 88* -- 78* -- 78* -- 74* CREATININE mg/dL -- -- -- -- -- -- 4.49* -- 5.44* -- 5.09* -- 5.41* -- 5.33* CALCIUM mg/dL -- -- -- -- -- -- 8.5 -- 8.5 -- 8.3* -- 8.1* -- 8.0* ALBUMIN g/dL -- -- -- -- -- -- 2.6* -- 2.8* -- 2.7* -- 2.6* -- 2.6* < > = values in this interval not displayed. Recent Labs Lab Units 10/15/23 0650 APTT sec 36 INR 1.05 Intake/Output Summary (Last 24 hours) at 10/17/2023 0929 Last data filed at 10/16/2023 1430 Gross per 24 hour Intake 1342 ml Output 1500 ml Net -158 ml Vitals: 10/16/23 1437 10/16/23 2032 10/17/23 0243 10/17/23 0753 BP: 134/53 132/59 118/67 107/62 BP Location: Right arm Right arm Left arm Patient Position: Lying Lying Lying Pulse: 60 64 65 58 Resp: 18 18 Temp: 36.7 ??C (98.1 ??F) 37 ??C (98.6 ??F) 37.1 ??C (98.7 ??F) 36.9 ??C (98.4 ??F) TempSrc: Oral Oral Oral Oral SpO2: 95% 98% 97% 94% Weight: Height: ASSESSMENT/PLAN: Patient Active Problem List Diagnosis Diabetic neuropathy ([facility]) Type 2 diabetes mellitus with diabetic neuropathy, with long-term current use of insulin ([facility]) Primary hypertension Amputation of toe of right foot ([facility]/HCC) ([facility]) Iron deficiency anemia Gastroesophageal reflux disease without esophagitis Mixed hyperlipidemia Schizoaffective disorder, bipolar type ([facility]) ([facility]) 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 2 diabetes mellitus ([facility]) ([facility]) Encounter for Medicare annual wellness exam Late onset Alzheimer's dementia without behavioral disturbance ([facility]) Volume overload Anemia Toe necrosis ([facility]/HCC) ([facility]) Physical deconditioning Left leg DVT ([facility]) Pulmonary nodule Retention of urine, unspecified Unspecified osteoarthritis, unspecified site Unsteadiness on feet Weakness Parkinsonism ([facility]) Wheezing Anemia in stage 4 chronic kidney disease ([facility]) Osteomyelitis of great toe of right foot (CMS/HCC) ([facility]) Abnormal urinalysis Acute kidney injury superimposed on CKD (HCC) Acute on chronic diastolic congestive heart failure ([facility]/HCC) ([facility]) Bibasilar consolidations Movement disorder Shortness of breath GI bleed Bandemia Leg swelling Diabetes mellitus with hyperglycemia ([facility]) ([facility]) Dyslipidemia Alzheimer's dementia ([facility]) Acute on chronic diastolic heart failure - due to CKD stage 4 on IV diuresis as per Nephrology - on dialysis for volume management -nephrology is managing - normal LV function on recent echocardiogram - moderate pulmonary hypertension likely due to left-sided heart failure Elevated troponin due to renal dysfunction - does not represent ACS - nonischemic MPI recently Essential hypertension -BP stable Diabetes mellitus type 2 Iron deficiency anemia - hemoglobin stable AMS on presentation - appears to be at baseline, she has Alzheimer's disease William Velasquez MD, FACC, [facility], [facility] [phone] 10/17/2023 9:29 AM * Jimbo Strauss MD - 10/16/2023 5:00 PM CDT Nephrology Daily Progress [facility]# [id number] SS#: [id number] Phone#: [phone] #: [phone] Subjective Chief complaint of Interval History: confused, needs a sitter Objective Vitals: 24hr Min/Max: Temp Min: 36.7 ??C (98.1 ??F) Max: 37.1 ??C (98.7 ??F) Pulse Min: 56 Max: 65 BP Min: 107/62 Max: 156/68 Resp Min: 18 Max: 19 SpO2 Min: 94 % Max: 98 % Intake/Output Summary (Last 24 hours) at 10/17/2023 0918 Last data filed at 10/16/2023 1430 Gross per 24 hour Intake 1342 ml Output 1500 ml Net -158 ml Wt Readings from Last 3 Encounters: 10/15/23 61.6 kg (135 lb 12.8 oz) 09/03/23 58.5 kg (129 lb) 08/03/23 58.2 kg (128 lb 6.4 oz) Temp Av.9 ??C (98.4 ??F) Min: 36.7 ??C (98.1 ??F) Max: 37.1 ??C (98.7 ??F) BP Min: 107/62 Max: 156/68 Pulse Av.5 Min: 56 Max: 65 Resp Av.3 Min: 18 Max: 19 SpO2 Av % Min: 94 % Max: 98 % Most Recent: Vitals: 10/17/23 0753 BP: 107/62 Pulse: 58 Resp: 18 Temp: 36.9 ??C (98.4 ??F) SpO2: 94% I/O last 2 completed shifts: In: 1342 [P.O.:342; I.V.:500; Other:500] Out: 1500 [Other:1500] No intake/output data recorded. Current Facility-Administered Medications Medication Dose Route Frequency Last Rate Last Admin acetaminophen (TYLENOL) tablet 650 mg 650 mg oral Q6H PRN 650 mg at 10/12/23 1111 albumin 25 % bottle 25 g 25 g intravenous PRN amLODIPine (NORVASC) tablet 5 mg 5 mg oral Daily 5 mg at 10/17/23823 atorvastatin (LIPITOR) tablet 20 mg 20 mg oral Nightly 20 mg at 10/16/232125 benztropine (COGENTIN) tablet 1.5 mg 1.5 mg oral Nightly 1.5 mg at 10/16/232125 calcium acetate(phosphat bind) (PHOSLO) capsule 667 mg 667 mg oral TID with meals 667 mg at 10/17/23823 dextrose oral liquid liquid 15 g 15 g oral Q15 Min PRN Or dextrose (D10W) 10% bolus 250 mL 250 mL intravenous Q15 Min PRN enoxaparin (LOVENOX) syringe 30 mg 30 mg subcutaneous Daily-2100 30 mg at 10/16/232127 famotidine (PEPCID) tablet 10 mg 10 mg oral Daily 10 mg at 10/17/23823 ferrous sulfate delayed release tablet 65 mg of elemental iron 65 mg of elemental iron oral BID 65 mg of elemental iron at 10/17/23823 fluticasone propionate (FLONASE) 50 mcg/actuation nasal spray 2 spray 2 spray each nostril Daily 2 spray at 10/15/23 1301 glucagon injection 1 mg 1 mg intramuscular Q30 Min PRN heparin 1,000 unit/mL injection 1,500 Units 1,500 Units dialysis circuit Once heparin 1,000 unit/mL injection 1,500 Units 1,500 Units dialysis circuit Once heparin 1,000 unit/mL injection 1.5-6.9 mL 1.5-6.9 mL intra-catheter Once heparin 1,000 unit/mL injection 1.5-6.9 mL 1.5-6.9 mL intra-catheter Once insulin glargine (LANTUS, SEMGLEE) 100 unit/mL injection 15 Units 0.25 Units/kg subcutaneous Nightly 15 Units at 10/16/232127 insulin lispro (HumaLOG, ADMELOG) 100 unit/mL injection 0-10 Units 0-10 Units subcutaneous TID withmeals 1 Units at 10/16/23 1736 insulin lispro (HumaLOG, ADMELOG) 100 unit/mL injection 0-5 Units 0-5 Units subcutaneous Nightly 1 Units at 10/16/232127 insulin lispro (HumaLOG, ADMELOG) 100 unit/mL injection 5 Units 0.083 Units/kg subcutaneous TID with meals 5 Units at 10/17/23823 metoprolol tartrate (LOPRESSOR) immediate release tablet 25 mg 25 mg oral BID 25 mg at 10/17/23823 OLANZapine (ZyPREXA) 2.5 mg in sterile water 0.5 mL (5 mg/mL) syringe 2.5 mg intramuscular Q12H PRN OLANZapine (ZyPREXA) tablet 2.5 mg 2.5 mg oral BID PRN ondansetron (ZOFRAN) injection 4 mg 4 mg intravenous Q6H PRN polyethylene glycol (MIRALAX) packet 17 g 17 g oral Daily 17 g at 10/17/23823 ramelteon (ROZEREM) tablet 8 mg 8 mg oral Nightly PRN 8 mg at 10/13/232252 risperiDONE (RisperDAL) tablet 1 mg 1 mg oral Nightly 1 mg at 10/16/232125 Continuous Medications Medication Dose Last Rate Physical Exam: General Appearance: Alert, cooperative, confused Head: Normocephalic, without obvious abnormality, atraumatic Eyes: PERRL, conjunctiva/corneas clear, EOM's intact, both eyes, anicteric Neck: Supple, symmetrical, trachea midline, no adenopathy; thyroid: No enlargement/tenderness/nodules; no carotid bruits, No JVD Lungs: Decreased breath sounds bilaterally Cardiovascular: Regular rate and rhythm, S1 and S2 normal, no murmur, rub or gallop Abdomen: Soft, non-tender, bowel sounds active all four quadrants, non-distended Extremities: Extremities normal, no LE edema Skin: Skin color, texture, turgor normal, no rashes, lesions or bruising Neurologic: Alert & oriented person, difficult time with orientation questions Psychosocial: Normal affect and mood Dialysis Access Exam: Lab/Radiology/Diagnostic Review: Recent Labs Lab Units 10/17/23 0643 10/16/23 0803 10/16/23 0654 10/15/23 1255 10/15/23 0650 10/14/23 0747 10/14/23 0613 SODIUM mmol/L -- -- 140 -- 140 -- 141 POTASSIUM PLASMA mmol/L -- -- 4.0 -- 4.6 -- 4.8 CHLORIDE mmol/L -- -- 103 -- 110 -- 111* CO2 mmol/L -- -- 23 -- 19* -- 19* BUN SERUM mg/dL -- -- 62* -- 88* -- 78* CREATININE mg/dL -- -- 4.49* -- 5.44* -- 5.09* [id number] mL/min/1.73 m2 -- -- 10* -- 8* -- 8* GLUCOSE mg/dL -- -- 186 -- 161 -- 227* POC GLUCOSE MONITOR mg/dL 113 < > -- < > -- < > -- CALCIUM mg/dL -- -- 8.5 -- 8.5 -- 8.3* ALBUMIN g/dL -- -- 2.6* -- 2.8* -- 2.7* PHOSPHORUS PLASMA mg/dL -- -- 4.7* -- 6.2* -- 5.5* < > = values in this interval not displayed. Additional Labs: Recent Labs Lab Units 10/10/23 1808 WBC K/cumm 8.9 HEMOGLOBIN g/dL 9.6* HEMATOCRIT % 29.6* PLATELETS K/cumm 322 NEUTROS PCT % 71.5 LYMPHS PCT % 20.0 MONOS PCT % 6.4 EOS PCT % 1.5 )Assessment/Plan 1. ESRD: Due to diabetes and hypertension. Stage IV. As off 10/14/2023 spoke to daughter. Will plan to start HD for . Will initiate out pt HD placement as well. As off 10/15/2023 for HD again thursday 2. Hypertension: Adjust blood pressure medicines as needed As off 10/16/2023 BP is low, hold BP meds 3. Edema: Mostly due to pulmonary hypertension and chronic kidney disease. Ongoing diuresis. Expectsome rising creatinine with diuresis. As off 10/11/2023 edema is better. Diuretics on hold 4. Metabolic acidosis: Due to renal failure. If it goes any lower will need supplementation. 5. High phosphorus: will add a binder DICTATION DISCLAIMER: This note is transcribed using the [employer] direct voice recognition system without human dust control engineer. In an effort to expedite patient care, this note has not been adjusted for typographical, grammatical, and syntax by a trained medical equipment sales. Portions of this note have been copied from the medical record, but edited appropriately to accurately reflect the patient's current clinical state. Jimbo Strauss Office/exchange: [phone] * Daisy Glasgow, PT - 10/16/2023 3:08 PM CDT Physical Therapy Attempted to see for physical therapy but patient refusing, states she has already walked down the [place], sitter in room states she had not walked but patient refusing and not wanting to walk at this time, will follow up next available date. * Gill Gamboa MD - 10/16/2023 2:42 PM CDT General Medicine Progress Note Interval Events: This is a 72-year-old female with history of arthritis, CHF, dementia, depression, diabetic neuropathy, hyperlipidemia, advance insufficiency who came to the hospital with complaint of lower extremity swelling. Clinical findings associated with volume overload associated with severe renal and worsening renal insufficiency. Patient is now advanced to end-stage renal disease and is now status post hemodialysis catheter placement. Patient now on day 2 of hemodialysis. Patient seen in dialysis Subjective: Chief complaint: Shortness of breath. Patient seen in dialysis. Appears to be comfortable. Patient is tired from dialysis treatment. Objective: Vitals: 24hr Min/Max: Temp Min: 36.3 ??C (97.3 ??F) Max: 36.9 ??C (98.4 ??F) Pulse Min: 56 Max: 66 BP Min: 101/57 Max: 156/68 Resp Min: 18 Max: 20 SpO2 Min: 94 % Max: 99 % Most Recent: Vitals: 10/16/23 0811 10/16/23 0935 10/16/23 1235 10/16/23 1437 BP: 101/57 123/54 156/68 134/53 BP Location: Right arm Right arm Right arm Right arm Patient Position: Sitting Lying Lying Lying Pulse: 66 56 60 60 Resp: 19 19 18 19 Temp: 36.9 ??C (98.4 ??F) 36.8 ??C (98.2 ??F) 36.8 ??C (98.2 ??F) 36.7 ??C (98.1 ??F) TempSrc: Oral Temporal Temporal Oral SpO2: 94% 95% Weight: Height: Intake/Output Summary (Last 24 hours) at 10/16/2023 1648 Last data filed at 10/16/2023 1430 Gross per 24 hour Intake 1462 ml Output 1500 ml Net -38 ml Physical Exam: Physical Exam GEN: Alert. NAD HENT: Normocephalic. Atraumatic. CVS: RRR CHEST: Coarse breath sounds bilaterally ABD: soft. ND EXT: no edema Lab/Radiology/Diagnostic Review: Reviewed. Recent Results (from the past 24 hour(s)) POCT glucose Collection Time: 10/15/23 5:28 PM Result Value Ref Range Glucose, POC 142 70 - 199 mg/dL POCT glucose Collection Time: 10/15/23 10:54 PM Result Value Ref Range Glucose, POC 96 70 - 199 mg/dL POCT glucose Collection Time: 10/16/23 2:22 AM Result Value Ref Range Glucose, POC 227 (H) 70 - 199 mg/dL Renal function panel Collection Time: 10/16/23 6:54 AM Result Value Ref Range Sodium 140 135 - 145 mmol/L Potassium, pl 4.0 3.3 - 4.9 mmol/L Chloride 103 97 - 110 mmol/L CO2 23 22 - 32 mmol/L Anion gap 14 2 - 15 mmol/L BUN 62 (H) 6 - 25 mg/dL Creatinine 4.49 (H) 0.60 - 1.10 mg/dL Glucose 186 70 - 199 mg/dL Calcium 8.5 8.5 - 10.3 mg/dL Phosphorus, pl 4.7 (H) 2.3 - 4.5 mg/dL Albumin 2.6 (L) 3.5 - 5.0 g/dL eGFR Collection Time: 10/16/23 6:54 AM Result Value Ref Range eGFR 10 (L) >=60 mL/min/1.73 m2 POCT glucose Collection Time: 10/16/23 8:03 AM Result Value Ref Range Glucose, POC 180 70 - 199 mg/dL POCT glucose Collection Time: 10/16/23 1:19 PM Result Value Ref Range Glucose, POC 89 70 - 199 mg/dL Assessment and Plan: Principal Problem: Acute on chronic diastolic congestive heart failure ([facility]) ([facility]) Active Problems: Diabetic neuropathy ([facility]) Type 2 diabetes mellitus with diabetic neuropathy, with long-term current use of insulin ([facility]) Primary hypertension Gastroesophageal reflux disease without esophagitis Mixed hyperlipidemia Schizoaffective disorder, bipolar type ([facility]) ([facility]) Anemia in stage 4 chronic kidney disease ([facility]) Acute kidney injury superimposed on CKD ([facility]) Leg swelling Diabetes mellitus with hyperglycemia ([facility]) ([facility]) Dyslipidemia Alzheimer's dementia ([facility]) Acute hypoxemic respiratory failure. Currently on supplemental oxygen. Secondary to overload secondary to combination of renal/cardiac decompensation. Volume management per Nephrology. Monitor closely. End-stage renal disease. Patient now advanced to dialysis treatment. Now on day 2 of hemodialysis. Will continue to monitor closely. Acute on chronic diastolic congestive heart failure exacerbation. Volume management per Nephrology. Type 2 diabetes. Continue with current basal-bolus regimen of insulin with Lantus/Humalog. Continueto monitor closely. Essential hypertension. Continue Lopressor 25 mg b.i.d.. Continue amlodipine 10 mg daily. Fen. Continue to monitor electrolytes. Disposition: Status post hemodialysis catheter placement Patient now on day 2 of hemodialysis. Will need outpatient hemodialysis setup as well as placement. Discharge planning: Will need placement. Expected date of discharge: 10/20/2023 My total encounter time on 10/16/2023 was 36 minutes which was spent in the activities documented inthe note. This includes time spent prior to the visit and after the visit in direct care of the patient. This time does not include time spent in any separately reportable services. Gill Gamboa MD Hospitalist [phone] 44:48 PM * William Velasquez MD - 10/16/2023 10:40 AM CDT Daily Progress [facility] Cardiology Subjective: Getting HD this AM, no CP/SOB, tolerating HD so far, remains oliguric OBJECTIVE: Past Medical History: Diagnosis Date Anemia Arthritis CHF (congestive heart failure) (CMS/HCC) (HCC) Dementia (HCC) Depression Diabetic neuropathy (HCC) GERD (gastroesophageal reflux disease) HL (hearing loss) Hyperlipidemia Hypertension Movement disorder Osteomyelitis (HCC) Renal disorder Schizophrenia (HCC) Type 2 diabetes mellitus (HCC) Family History Problem Relation Age of Onset Diabetes Mother Heart disease Mother Kidney disease Mother Stomach cancer Father Alcohol abuse Father Diabetes Sister Diabetes Sister Diabetes Brother Scheduled Medications Medication Dose Route Frequency amLODIPine (NORVASC) tablet 5 mg 5 mg oral Daily atorvastatin (LIPITOR) tablet 20 mg 20 mg oral Nightly benztropine (COGENTIN) tablet 1.5 mg 1.5 mg oral Nightly calcium acetate(phosphat bind) (PHOSLO) capsule 667 mg 667 mg oral TID with meals enoxaparin (LOVENOX) syringe 30 mg 30 mg subcutaneous Daily-2100 famotidine (PEPCID) tablet 10 mg 10 mg oral Daily ferrous sulfate delayed release tablet 65 mg of elemental iron 65 mg of elemental iron oral BID fluticasone propionate (FLONASE) 50 mcg/actuation nasal spray 2 spray 2 spray each nostril Daily heparin 1,000 unit/mL injection 1,500 Units 1,500 Units dialysis circuit Once heparin 1,000 unit/mL injection 1,500 Units 1,500 Units dialysis circuit Once heparin 1,000 unit/mL injection 1.5-6.9 mL 1.5-6.9 mL intra-catheter Once heparin 1,000 unit/mL injection 1.5-6.9 mL 1.5-6.9 mL intra-catheter Once heparin 1,000 unit/mL injection 500 Units 500 Units dialysis circuit Q1H heparin 1,000 unit/mL injection 500 Units 500 Units dialysis circuit Q1H insulin glargine (LANTUS, SEMGLEE) 100 unit/mL injection 15 Units 0.25 Units/kg subcutaneous Nightly insulin lispro (HumaLOG, ADMELOG) 100 unit/mL injection 0-10 Units 0-10 Units subcutaneous TID withmeals insulin lispro (HumaLOG, ADMELOG) 100 unit/mL injection 0-5 Units 0-5 Units subcutaneous Nightly insulin lispro (HumaLOG, ADMELOG) 100 unit/mL injection 5 Units 0.083 Units/kg subcutaneous TID with meals metoprolol tartrate (LOPRESSOR) immediate release tablet 25 mg 25 mg oral BID risperiDONE (RisperDAL) tablet 1 mg 1 mg oral Nightly Exam: Gen: Comfortable, NAD CVS: RRR, S1, S2 present, systolic murmur GI: Soft Non tender Chest: Air entry reduced CTAB Psych: Appropriate mood and affect Neuro: Alert, oriented, No deficits. Recent Labs Lab Units 10/10/23 1808 WBC K/cumm 8.9 HEMOGLOBIN g/dL 9.6* HEMATOCRIT % 29.6* PLATELETS K/cumm 322 Recent Labs Lab Units 10/16/23 0803 10/16/23 0654 10/16/23 0222 10/15/23 2254 10/15/23 1728 10/15/23 1255 10/15/23 0650 10/14/23 0747 10/14/23 0613 10/13/23 0742 10/13/23 0620 10/12/23 0815 10/12/23 0656 SODIUM mmol/L -- 140 -- -- -- -- 140 -- 141 -- 141 -- 143 POTASSIUM PLASMA mmol/L -- 4.0 -- -- -- -- 4.6 -- 4.8 -- 4.4 -- 4.0 CHLORIDE mmol/L -- 103 -- -- -- -- 110 -- 111* -- 110 -- 111* CO2 mmol/L -- 23 -- -- -- -- 19* -- 19* -- 19* -- 21* ANIONGAP mmol/L -- 14 -- -- -- -- 11 -- 11 -- 12 -- 11 GLUCOSE mg/dL -- 186 -- -- -- -- 161 -- 227* -- 137 -- 108 POC GLUCOSE MONITOR mg/dL 180 -- 227* 96 142 < > -- < > -- < > -- < > -- BUN SERUM mg/dL -- 62* -- -- -- -- 88* -- 78* -- 78* -- 74* CREATININE mg/dL -- 4.49* -- -- -- -- 5.44* -- 5.09* -- 5.41* -- 5.33* CALCIUM mg/dL -- 8.5 -- -- -- -- 8.5 -- 8.3* -- 8.1* -- 8.0* ALBUMIN g/dL -- 2.6* -- -- -- -- 2.8* -- 2.7* -- 2.6* -- 2.6* < > = values in this interval not displayed. Recent Labs Lab Units 10/15/23 0650 APTT sec 36 INR 1.05 Intake/Output Summary (Last 24 hours) at 10/16/2023 1041 Last data filed at 10/15/2023 1855 Gross per 24 hour Intake 240 ml Output 200 ml Net 40 ml Vitals: 10/15/23 2309 10/16/23 0008 10/16/23 0222 10/16/23 0811 BP: 136/58 112/50 101/57 BP Location: Right arm Left arm Right arm Patient Position: Lying Lying Sitting Pulse: 66 64 56 66 Resp: Temp: 36.4 ??C (97.5 ??F) 36.3 ??C (97.3 ??F) 36.9 ??C (98.4 ??F) TempSrc: Axillary Axillary Oral SpO2: 99% 94% 94% Weight: Height: ASSESSMENT/PLAN: Patient Active Problem List Diagnosis Diabetic neuropathy ([facility]) Type 2 diabetes mellitus with diabetic neuropathy, with long-term current use of insulin (HCC) Primary hypertension Amputation of toe of right foot ([facility]) ([facility]) Iron deficiency anemia Gastroesophageal reflux disease without esophagitis Mixed hyperlipidemia Schizoaffective disorder, bipolar type ([facility]) ([facility]) 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 2 diabetes mellitus ([facility]) ([facility]) Encounter for Medicare annual wellness exam Late onset Alzheimer's dementia without behavioral disturbance ([facility]) Volume overload Anemia Toe necrosis ([facility]/HCC) ([facility]) Physical deconditioning Left leg DVT (HCC) Pulmonary nodule Retention of urine, unspecified Unspecified osteoarthritis, unspecified site Unsteadiness on feet Weakness Parkinsonism (HCC) Wheezing Anemia in stage 4 chronic kidney disease ([facility]) Osteomyelitis of great toe of right foot ([facility]) ([facility]) Abnormal urinalysis Acute kidney injury superimposed on CKD (HCC) Acute on chronic diastolic congestive heart failure ([facility]) ([facility]) Bibasilar consolidations Movement disorder Shortness of breath GI bleed Bandemia Leg swelling Diabetes mellitus with hyperglycemia (CMS/HCC) (HCC) Dyslipidemia Alzheimer's dementia (HCC) Volume overload - due to CKD stage 4 on IV diuresis as per Nephrology - urine output remains poor, under line placement today 10/15/2023 and then dialysis -nephrology is managing Acute on chronic diastolic heart failure - normal LV function on recent echocardiogram - moderate pulmonary hypertension likely due to left-sided heart failure Elevated troponin due to renal dysfunction - does not represent ACS - nonischemic MPI recently Essential hypertension -BP stable Diabetes mellitus type 2 Iron deficiency anemia - hemoglobin stable AMS on presentation - appears to be at baseline, she has Alzheimer's disease William Velasquez MD, [facility], [facility], [facility] [phone] 10/16/2023 10:41 AM * Sarahy Liao PTA - 10/16/2023 9:14 AM CDT Physical Therapy NO THERAPY CHARGE Patient off the floor in dialysis. Sarahy Liao PTA 10/16/23 9:14 AM * Jimbo Strauss MD - 10/15/2023 5:00 PM CDT Nephrology Daily Progress [facility]# [id number] #: [id number] Phone#: [phone] #: [phone] Subjective Chief complaint of Interval History: confused, needs a sitter Objective Vitals: 24hr Min/Max: Temp Min: 36.3 ??C (97.3 ??F) Max: 36.8 ??C (98.2 ??F) Pulse Min: 56 Max: 76 BP Min: 112/50 Max: 145/68 Resp Min: 11 Max: 20 SpO2 Min: 94 % Max: 100 % Intake/Output Summary (Last 24 hours) at 10/16/2023 2470 Last data filed at 10/15/2023 1855 Gross per 24 hour Intake 240 ml Output 200 ml Net 40 ml Wt Readings from Last 3 Encounters: 10/15/23 61.6 kg (135 lb 12.8 oz) 09/03/23 58.5 kg (129 lb) 08/03/23 58.2 kg (128 lb 6.4 oz) Temp Av.5 ??C (97.7 ??F) Min: 36.3 ??C (97.3 ??F) Max: 36.8 ??C (98.2 ??F) BP Min: 112/50 Max: 145/68 Pulse Av.4 Min: 56 Max: 76 Resp Av.1 Min: 11 Max: 20 SpO2 Av.3 % Min: 94 % Max: 100 % Most Recent: Vitals: 10/16/23221 BP: 112/50 Pulse: 56 Resp: 19 Temp: 36.3 ??C (97.3 ??F) SpO2: 94% I/O last 2 completed shifts: In: 240 [P.O.:240] Out: 200 [Urine:200] No intake/output data recorded. Current Facility-Administered Medications Medication Dose Route Frequency Last Rate Last Admin acetaminophen (TYLENOL) tablet 650 mg 650 mg oral Q6H PRN 650 mg at 10/12/23 1111 amLODIPine (NORVASC) tablet 10 mg 10 mg oral Daily 10 mg at 10/15/23 1259 atorvastatin (LIPITOR) tablet 20 mg 20 mg oral Nightly 20 mg at 10/15/23 2307 benztropine (COGENTIN) tablet 1.5 mg 1.5 mg oral Nightly 1.5 mg at 10/15/23 2313 calcium acetate(phosphat bind) (PHOSLO) capsule 1,334 mg 1,334 mg oral TID with meals 1,334 mg at 10/15/23 1845 dextrose oral liquid liquid 15 g 15 g oral Q15 Min PRN Or dextrose (D10W) 10% bolus 250 mL 250 mL intravenous Q15 Min PRN enoxaparin (LOVENOX) syringe 30 mg 30 mg subcutaneous Daily-2100 30 mg at 10/15/23 2314 famotidine (PEPCID) tablet 10 mg 10 mg oral Daily 10 mg at 10/15/23 1259 ferrous sulfate delayed release tablet 65 mg of elemental iron 65 mg of elemental iron oral BID 65 mg of elemental iron at 10/15/23 2316 fluticasone propionate (FLONASE) 50 mcg/actuation nasal spray 2 spray 2 spray each nostril Daily 2 spray at 10/15/23 1301 [Held by Provider] furosemide (LASIX) 10 mg/mL injection 40 mg 40 mg intravenous BID DIURETIC 40 mgat 10/09/23 180 glucagon injection 1 mg 1 mg intramuscular Q30 Min PRN insulin glargine (LANTUS, SEMGLEE) 100 unit/mL injection 15 Units 0.25 Units/kg subcutaneous Nightly 15 Units at 10/14/23 224 insulin lispro (HumaLOG, ADMELOG) 100 unit/mL injection 0-10 Units 0-10 Units subcutaneous TID withmeals 2 Units at 10/14/23 181 insulin lispro (HumaLOG, ADMELOG) 100 unit/mL injection 0-5 Units 0-5 Units subcutaneous Nightly 2 Units at 10/12/232119 insulin lispro (HumaLOG, ADMELOG) 100 unit/mL injection 5 Units 0.083 Units/kg subcutaneous TID with meals 5 Units at 10/15/23 184 metoprolol tartrate (LOPRESSOR) immediate release tablet 25 mg 25 mg oral BID 25 mg at 10/15/23 230 OLANZapine (ZyPREXA) 2.5 mg in sterile water 0.5 mL (5 mg/mL) syringe 2.5 mg intramuscular Q12H PRN OLANZapine (ZyPREXA) tablet 2.5 mg 2.5 mg oral BID PRN ondansetron (ZOFRAN) injection 4 mg 4 mg intravenous Q6H PRN ramelteon (ROZEREM) tablet 8 mg 8 mg oral Nightly PRN 8 mg at 10/13/23 225 risperiDONE (RisperDAL) tablet 1 mg 1 mg oral Nightly 1 mg at 10/15/23 2305 Continuous Medications Medication Dose Last Rate Physical Exam: General Appearance: Alert, cooperative, confused Head: Normocephalic, without obvious abnormality, atraumatic Eyes: PERRL, conjunctiva/corneas clear, EOM's intact, both eyes, anicteric Neck: Supple, symmetrical, trachea midline, no adenopathy; thyroid: No enlargement/tenderness/nodules; no carotid bruits, No JVD Lungs: Decreased breath sounds bilaterally Cardiovascular: Regular rate and rhythm, S1 and S2 normal, no murmur, rub or gallop Abdomen: Soft, non-tender, bowel sounds active all four quadrants, non-distended Extremities: Extremities normal, no LE edema Skin: Skin color, texture, turgor normal, no rashes, lesions or bruising Neurologic: Alert & oriented person, difficult time with orientation questions Psychosocial: Normal affect and mood Dialysis Access Exam: Lab/Radiology/Diagnostic Review: Recent Labs Lab Units 10/16/23 0222 10/15/23 1255 10/15/23 0650 10/14/23 0747 10/14/23 0613 10/13/23 0742 10/13/23 0620 SODIUM mmol/L -- -- 140 -- 141 -- 141 POTASSIUM PLASMA mmol/L -- -- 4.6 -- 4.8 -- 4.4 CHLORIDE mmol/L -- -- 110 -- 111* -- 110 CO2 mmol/L -- -- 19* -- 19* -- 19* BUN SERUM mg/dL -- -- 88* -- 78* -- 78* CREATININE mg/dL -- -- 5.44* -- 5.09* -- 5.41* [id number] mL/min/1.73 m2 -- -- 8* -- 8* -- 8* GLUCOSE mg/dL -- -- 161 -- 227* -- 137 POC GLUCOSE MONITOR mg/dL 227* < > -- < > -- < > -- CALCIUM mg/dL -- -- 8.5 -- 8.3* -- 8.1* ALBUMIN g/dL -- -- 2.8* -- 2.7* -- 2.6* PHOSPHORUS PLASMA mg/dL -- -- 6.2* -- 5.5* -- 6.2* < > = values in this interval not displayed. Additional Labs: Recent Labs Lab Units 10/10/23 1808 WBC K/cumm 8.9 HEMOGLOBIN g/dL 9.6* HEMATOCRIT % 29.6* PLATELETS K/cumm 322 NEUTROS PCT % 71.5 LYMPHS PCT % 20.0 MONOS PCT % 6.4 EOS PCT % 1.5 )Assessment/Plan 1. ESRD: Due to diabetes and hypertension. Stage IV. As off 10/14/2023 spoke to daughter. Will plan to start HD for . Will initiate out pt HD placement as well. As off 10/15/2023 for HD again thursday 2. Hypertension: Adjust blood pressure medicines as needed 3. Edema: Mostly due to pulmonary hypertension and chronic kidney disease. Ongoing diuresis. Expectsome rising creatinine with diuresis. As off 10/11/2023 edema is better. Diuretics on hold 4. Metabolic acidosis: Due to renal failure. If it goes any lower will need supplementation. 5. High phosphorus: will add a binder DICTATION DISCLAIMER: This note is transcribed using the [employer] direct voice recognition system without human dust control engineer. In an effort to expedite patient care, this note has not been adjusted for typographical, grammatical, and syntax by a trained medical equipment sales. Portions of this note have been copied from the medical record, but edited appropriately to accurately reflect the patient's current clinical state. Jimbo Strauss Office/exchange: [phone] * Mayra Wong - 10/15/2023 3:03 PM CDT NUTRITION ASSESSMENT Nutrition Status: Patient does not meet ASPEN criteria for malnutrition at this time. REASON FOR ASSESSMENT: Follow Up Encounter Date: 10/15/23 3:03 PM Admission Date: 10/06/2023 LOS: 8 days HPI: Patient is a 72 y.o. female with a PMHx significant for Arthritis, HFpEF, Dementia, Depression, Diabetic neuropathy, HLD, HTN, Osteomyelitis, CKD IV, Schizophrenia, and IDDM. Presents to the ED with a chief complaint of lower extremity edema. Patient has been consuming microwave popcorn lately. Daughter to speak with patient about reducing sodium in diet. 10/07: Provided renal and consistent carbohydrate education, Pt interested in outpatient counseling,will send referral. 10/14: Continue current ordered diet. If intakes decline consider liberalizing diet order. Pt with no diet edu f/u questions. Objective Past Medical History: Diagnosis Date Anemia [...] toe amp/ foot debridement/ Dr. Anat Pelayo Social History Tobacco Use Smoking status: Never Smokeless tobacco: Never Substance and Sexual Activity Drug use: Never Sexual activity: Not Currently Partners: Male Alcohol Use: Not At Risk (07/24/2023) AUDIT-C Frequency of Alcohol Consumption: Never Average Number of Drinks: Patient does not drink Frequency of Binge Drinking: Never MEDICATION/LAB REVIEW: Scheduled Meds: amLODIPine, 10 mg, oral, Daily atorvastatin, 20 mg, oral, Nightly benztropine, 1.5 mg, oral, Nightly calcium acetate(phosphat bind), 1,334 mg, oral, TID with meals enoxaparin, 30 mg, subcutaneous, Daily-2100 famotidine, 10 mg, oral, Daily ferrous sulfate, 65 mg of elemental iron, oral, BID fluticasone propionate, 2 spray, each nostril, Daily [Held by Provider] furosemide, 40 mg, intravenous, BID DIURETIC insulin glargine, 0.25 Units/kg, subcutaneous, Nightly insulin lispro, 0-10 Units, subcutaneous, TID with meals insulin lispro, 0-5 Units, subcutaneous, Nightly insulin lispro, 0.083 Units/kg, subcutaneous, TID with meals metoprolol tartrate, 25 mg, oral, BID risperiDONE, 1 mg, oral, Nightly Continuous Infusions: PRN Meds: acetaminophen dextrose OR dextrose glucagon OLANZapine OLANZapine ondansetron ramelteon Recent Labs Lab Units 10/15/23 0650 SODIUM mmol/L 140 POTASSIUM PLASMA mmol/L 4.6 CHLORIDE mmol/L 110 CO2 mmol/L 19* BUN SERUM mg/dL 88* CREATININE mg/dL 5.44* [id number] mL/min/1.73 m2 8* CALCIUM mg/dL 8.5 ALBUMIN g/dL 2.8* PHOSPHORUS PLASMA mg/dL 6.2* Recent Labs Lab Units 10/15/23 1255 10/15/23 0650 10/15/23 0233 10/14/23 2240 10/14/23 1731 10/14/23 1254 10/14/23 0747 GLUCOSE mg/dL -- 161 -- -- -- -- -- POC GLUCOSE MONITOR mg/dL 104 -- 138 137 193 86 270* No results found for: ALT , AST , BILIRUBIN , ALKPHOS , LIPASE Lab Results Component Value Date HGBA1C 8.2 (H) 10/08/2023 HDL 33 (L) 09/10/2021 LDLCALC 20 09/10/2021 CHOL 84 09/10/2021 TRIG 153 (H) 09/10/2021 NURSING ASSESSMENT: Last BM Date: 10/14/23 Timoteo Scale Score: 23 Skin Integrity: Abrasion (old surgical scar to abd, amputation of 3rd toe on right foot.) Vital Signs BP: 145/68 Temp: 36.6 ??C (97.8 ??F) Pulse: 61 Resp: 18 SpO2: 98 % Intake/Output Summary (Last 24 hours) at 10/15/2023 1503 Last data filed at 10/15/2023 1440 Gross per 24 hour Intake 120 ml Output -- Net 120 ml Adult Malnutrition Scoring Tool (MST) What diet do you follow at home?: diabetic Have You Recently Lost Weight Without Trying?: Yes (Comment) How Much Weight Have You Lost?: 2 - 13 lb Have you been eating poorly because of a decreased appetite?: No Malnutrition Screening Tool (MST) Score: 1 Within the past 12 months, you worried that your food would run out before you got the money to buymore.: Never true Within the past 12 months, the food you bought just didn't last and you didn't have money to get more.: Never true Anthropometrics Weight: 64.5 kg (142 lb 1.6 oz) Admission Weight : 64.5 kg Weight Change: 6.39 kg (14.10 lbs) IBW/kg (Calculated) : 49.9 kg Height: 157.5 cm (5' 2.01 ) Weight in (lb) to have BMI = 25: 136.4 BMI (Calculated): 26 Wt Readings from Last 10 Encounters: 10/07/23 64.5 kg (142 lb 1.6 oz) 09/03/23 58.5 kg (129 lb) 08/03/23 58.2 kg (128 lb 6.4 oz) 07/28/23 56.7 kg (125 lb) 07/24/23 56 kg (123 lb 6.4 oz) 06/30/23 60.8 kg (134 lb) 04/07/23 59.2 kg (130 lb 9.6 oz) 03/24/23 59 kg (130 lb) 03/18/23 61.7 kg (136 lb) 01/23/23 61 kg (134 lb 8 oz) ESTIMATED NEEDS: Weight Used for Equation Calculations (RD Determined): 64.5 kg (142 lb 3.2 oz) Total Kcal/kg Estimated Needs : 1804.77 Kcal/k. Type of Weight Used for Estimated Kcals: Current Total Protein Estimated Needs (gm): 70.9 Protein Needs Based on g/k.1 Type of Weight Used for Estimated Protein : Current Total Fluid Estimated Needs Comments:: 1500 mL (HD) Dietary Orders (From admission, onward) Start Ordered 10/15/23 1208 Adult Diet Restricted; Low Fat, Low Chol, Low Na, 2 GM Sodium; Consistent Carb 1600 chanelle; Renal; 1500mL = Diet 1050/Nursing 450 Diet effective now Question Answer Comment (CH) Diet type Restricted Fat / Sodium Restriction: Low Fat, Low Chol, Low Na Fat / Sodium Restriction: 2 GM Sodium Diabetic: Consistent Carb 1600 chanelle Renal: Renal Fluid restriction dietary / 24h: 1500mL = Diet 1050/Nursing 450 10/15/23 1207 10/07/23 2100 Bedtime snack At bedtime Comments: If bedtime BG is less than 100mg/dl, give patient a 15 gram carbohydrate snack. 10/07/23 1555 Allergies: Reviewed. IMPRESSION: HD today. Pt reports of good appetite. Overall with adequate intakes since last assessment; avg intake 80% x 9 documented meals. Pt denies N/V/C/D or chew/swallow problems. Labs reviewed. Phos elevated (4.2). Glu 86-270 x 24 hrs. Meds reviewed. +lasix. RLE/LLE +1 edema. Skin intact. GI WDL. Last BM10/13. Pt with no diet edu f/u questions. ASPEN MALNUTRITION ASSESSMENT: Date of completion: 10/08/23 ASPEN/AND Malnutrition Screening: Patient does not meet malnutrition criteria NUTRITION FOCUSED PHYSICAL EXAM: Completed, patient with changes likely related to age and not nutrition status. Subcutaneous Fat Loss Orbital Region - Surrounding the Eye: Slightly bulged fat pads Cheek Region - Buccal Fat: Full, round filled-out cheeks Upper Arm Region - Triceps/Biceps: Ample fat tissue obvious between folds of skin Muscle Loss Denominational Region - Temporalis Muscle: Slight depression Clavicle Bone Region - Pectoralis Major, Deltoid, Trapezius Muscles: Not visible in male, visible but not prominent in female Clavicle and Acromion Bone Region - Deltoid Muscle: Rounded, curves at arm/shoulder/neck Dorsal Hand - Interosseous Muscle: Muscle bulges, could be flat in some well nourished people Anterior Thigh and Patellar Region - Quadricep Muscle: Patella not prominent Edema Edema: Mild to moderate pitting NUTRITION DIAGNOSIS: Nutrition Diagnosis 1: Food and nutrition-related knowledge deficit Related to: Lack of education, Chronic illness/injury Evidenced by: Patient interview, Physical finding Nutrition Diagnosis 2: Increased nutrient needs (protein) Related to: ESRD Evidenced by: Dialysis treatments INTERVENTION(S): Summary: Follow up per policy, Assess for nutrition changes Pt educated on limiting sodium and consistent carbohydrate diet GOAL(S): Continue adequate PO intakes, Patient/caregiver able to teach back understanding of role of diet indisease process prior to discharge MONITORING/EVALUATION: Appetite, Diet-related questions, Discharge plans, PO intake, Plan of care Diet Instructions You will need to limit the amount of carbohydrates, potassium, phosphorus, sodium, and fluid that you consume every day. Have 3 daily meals with about 75 grams of carbohydrate at each one, avoid skipping any meals. Limit foods such as fast food items, fried/breaded foods, canned goods, deli meats, gravies/sauces,bananas, potatoes, tomatoes, oranges, turkey, and chocolate. Avoid drinking any sugary drinks like lemonade, regular soda, gatorade, and sweet tea. You should also limit drinking orange juice, tomato juice, milk, and dark diet sodas because they are higher in phosphorus and potassium. Follow any fluid restrictions recommended by your doctor. Do not use salt substitutes because they typically contain high amounts of potassium. Keep your salt shaker away from your table and don't add extra to your food. Drink 1-2 Nepro daily ,or another high protein supplement, to help replace the protein lost during dialysis. Monitor your blood sugar and take all medication as directed by your doctor. Call [phone] to speak with a [facility] registered dietitian about any nutrition related concerns after discharge. For any other questions you can call and ask to be connected to the floor that you were discharged from. Nutrition Follow-Up : 10/22/23 Mayra Wong, MS, RD, LD * Gill Gamboa MD - 10/15/2023 2:59 PM CDT General Medicine Progress Note Interval Events: This is a 72-year-old female with history of arthritis, CHF, dementia, depression, diabetic neuropathy, hyperlipidemia, advance insufficiency who came to the hospital with complaint of lower extremity swelling. Clinical findings consistent with volumeOverload. Nephrology in Cardiology have been following. Nephrology primarily guiding diuresis with IV Lasix. Advanced renal insufficiency noted. Nephrology guiding diuresis- Plan noted for dialysis Subjective: Chief complaint: Shortness of breath. Patient seen in her room. Resting comfortably. No new complaints Objective: Vitals: 24hr Min/Max: Temp Min: 36.5 ??C (97.7 ??F) Max: 36.8 ??C (98.3 ??F) Pulse Min: 56 Max: 76 BP Min: 110/61 Max: 145/68 Resp Min: 11 Max: 18 SpO2 Min: 97 % Max: 100 % Most Recent: Vitals: 10/15/23 0914 10/15/23 0915 10/15/23 1253 10/15/23 1558 BP: 145/68 145/68 125/54 BP Location: Right arm Left arm Patient Position: Lying;HOB 30 degrees Sitting Pulse: 66 61 59 Resp: 16 18 18 Temp: 36.6 ??C (97.8 ??F) 36.5 ??C (97.7 ??F) TempSrc: Oral Oral SpO2: 100% 98% 99% Weight: Height: Intake/Output Summary (Last 24 hours) at 10/15/2023 1704 Last data filed at 10/15/2023 1440 Gross per 24 hour Intake 120 ml Output -- Net 120 ml Physical Exam: Physical Exam GEN: Alert. NAD HENT: Normocephalic. Atraumatic. CVS: RRR CHEST: Coarse breath sounds bilaterally ABD: soft. ND EXT: no edema Lab/Radiology/Diagnostic Review: Reviewed. Recent Results (from the past 24 hour(s)) POCT glucose Collection Time: 10/14/23 5:31 PM Result Value Ref Range Glucose, POC 193 70 - 199 mg/dL POCT glucose Collection Time: 10/14/23 10:40 PM Result Value Ref Range Glucose, POC 137 70 - 199 mg/dL POCT glucose Collection Time: 10/15/23 2:33 AM Result Value Ref Range Glucose, POC 138 70 - 199 mg/dL Renal function panel Collection Time: 10/15/23 6:50 AM Result Value Ref Range Sodium 140 135 - 145 mmol/L Potassium, pl 4.6 3.3 - 4.9 mmol/L Chloride 110 97 - 110 mmol/L CO2 19 (L) 22 - 32 mmol/L Anion gap 11 2 - 15 mmol/L BUN 88 (H) 6 - 25 mg/dL Creatinine 5.44 (H) 0.60 - 1.10 mg/dL Glucose 161 70 - 199 mg/dL Calcium 8.5 8.5 - 10.3 mg/dL Phosphorus, pl 6.2 (H) 2.3 - 4.5 mg/dL Albumin 2.8 (L) 3.5 - 5.0 g/dL Protime-INR Collection Time: 10/15/23 6:50 AM Result Value Ref Range PT 12.0 10.3 - 13.7 sec INR 1.05 0.90 - 1.20 aPTT Collection Time: 10/15/23 6:50 AM Result Value Ref Range aPTT 36 28 - 38 sec Hepatitis panel, acute Blood Collection Time: 10/15/23 6:50 AM Specimen: Blood Result Value Ref Range Hep A IgM Nonreactive Nonreactive Hep B core IgM Nonreactive Nonreactive Hep C Ab Nonreactive Nonreactive HepBsAg Nonreactive Nonreactive Hepatitis B surface antibody (immune status) Blood Collection Time: 10/15/23 6:50 AM Specimen: Blood Result Value Ref Range HBsAb (immune status) Nonreactive eGFR Collection Time: 10/15/23 6:50 AM Result Value Ref Range eGFR 8 (L) >=60 mL/min/1.73 m2 POCT glucose Collection Time: 10/15/23 12:55 PM Result Value Ref Range Glucose, POC 104 70 - 199 mg/dL Assessment and Plan: Principal Problem: Acute on chronic diastolic congestive heart failure (CMS/HCC) ([facility]) Active Problems: Diabetic neuropathy ([facility]) Type 2 diabetes mellitus with diabetic neuropathy, with long-term current use of insulin ([facility]) Primary hypertension Gastroesophageal reflux disease without esophagitis Mixed hyperlipidemia Schizoaffective disorder, bipolar type (CMS/[facility]) ([facility]) Anemia in stage 4 chronic kidney disease ([facility]) Acute kidney injury superimposed on CKD ([facility]) Leg swelling Diabetes mellitus with hyperglycemia ([facility]) ([facility]) Dyslipidemia Alzheimer's dementia ([facility]) Acute hypoxemic respiratory failure. Currently on supplemental oxygen. Secondary to overload secondary to combination of renal/cardiac decompensation. Nephrology guiding diuresis IV Lasix. Will continue to monitor respiratory status. Chronic kidney disease stage 4/end-stage renal disease. Electrolytes stable. Patient progressing towards dialysis. Will continue to monitor closely. Acute on chronic diastolic congestive heart failure exacerbation. Continue to monitor closely. Acute on chronic diastolic congestive heart failure exacerbation. Volume management per Nephrology. Type 2 diabetes. Will continue with Lantus 15 units q.h.s.. Continue Humalog 5 units t.i.d. with meals. Monitor Accu-Cheks q.a.c. q.h.s. adjust with a low-dose sliding scale as needed. Essential hypertension. Continue Lopressor 25 mg b.i.d.. Essential hypertension. Continue amlodipine 10 mg daily. Fen. Continue to monitor electrolytes. Disposition: Patient now progressing towards dialysis. IV Lasix now currently on hold. Nephrology to guide volume management. Discharge planning: Will be coordinated with case management/social work and family Expected date of discharge: 10/20/2023 My total encounter time on 10/15/2023 was 36 minutes which was spent in the activities documented inthe note. This includes time spent prior to the visit and after the visit in direct care of the patient. This time does not include time spent in any separately reportable services. Gill Gamboa MD Hospitalist [phone] 45:04 PM * Kita Spencer RN - 10/15/2023 9:33 AM CDT In recovery post RIJ tunneled HD catheter placement. NAD. VSS. Site C/D. Full, post procedure report to floor [facility] L[facility]. Patient to transport via bed to dialysis. For treatment. * William Velasquez MD - 10/15/2023 9:19 AM CDT Daily Progress [facility] Cardiology Subjective: Continues to be significantly oliguric with increasing volume on input and output supposed to have tunneled line placement today for with plan for dialysis OBJECTIVE: Past Medical History: Diagnosis Date Anemia Arthritis CHF (congestive heart failure) (CMS/HCC) (HCC) Dementia (HCC) Depression Diabetic neuropathy (HCC) GERD (gastroesophageal reflux disease) HL (hearing loss) Hyperlipidemia Hypertension Movement disorder Osteomyelitis (HCC) Renal disorder Schizophrenia (HCC) Type 2 diabetes mellitus (HCC) Family History Problem Relation Age of Onset Diabetes Mother Heart disease Mother Kidney disease Mother Stomach cancer Father Alcohol abuse Father Diabetes Sister Diabetes Sister Diabetes Brother Scheduled Medications Medication Dose Route Frequency amLODIPine (NORVASC) tablet 10 mg 10 mg oral Daily atorvastatin (LIPITOR) tablet 20 mg 20 mg oral Nightly benztropine (COGENTIN) tablet 1.5 mg 1.5 mg oral Nightly enoxaparin (LOVENOX) syringe 30 mg 30 mg subcutaneous Daily-2100 famotidine (PEPCID) tablet 10 mg 10 mg oral Daily ferrous sulfate delayed release tablet 65 mg of elemental iron 65 mg of elemental iron oral BID fluticasone propionate (FLONASE) 50 mcg/actuation nasal spray 2 spray 2 spray each nostril Daily [Held by Provider] furosemide (LASIX) 10 mg/mL injection 40 mg 40 mg intravenous BID DIURETIC insulin glargine (LANTUS, SEMGLEE) 100 unit/mL injection 15 Units 0.25 Units/kg subcutaneous Nightly insulin lispro (HumaLOG, ADMELOG) 100 unit/mL injection 0-10 Units 0-10 Units subcutaneous TID withmeals insulin lispro (HumaLOG, ADMELOG) 100 unit/mL injection 0-5 Units 0-5 Units subcutaneous Nightly insulin lispro (HumaLOG, ADMELOG) 100 unit/mL injection 5 Units 0.083 Units/kg subcutaneous TID with meals metoprolol tartrate (LOPRESSOR) immediate release tablet 25 mg 25 mg oral BID risperiDONE (RisperDAL) tablet 1 mg 1 mg oral Nightly Exam: Gen: Comfortable, NAD CVS: RRR, S1, S2 present, systolic murmur GI: Soft Non tender Chest: Air entry reduced CTAB Psych: Appropriate mood and affect Neuro: Alert, oriented, No deficits. Recent Labs Lab Units 10/10/23 1808 10/08/23 1155 WBC K/cumm 8.9 8.2 HEMOGLOBIN g/dL 9.6* 8.9* HEMATOCRIT % 29.6* 29.0* PLATELETS K/cumm 322 311 Recent Labs Lab Units 10/15/23 0650 10/15/23 0233 10/14/23 2240 10/14/23 1731 10/14/23 1254 10/14/23 0747 10/14/23 0613 10/13/23 0742 10/13/23 0620 10/12/23 0815 10/12/23 0656 10/11/23 0720 10/11/23 0443 10/08/23 1336 10/08/23 1155 SODIUM mmol/L 140 -- -- -- -- -- 141 -- 141 -- 143 -- 141 < > 144 POTASSIUM PLASMA mmol/L 4.6 -- -- -- -- -- 4.8 -- 4.4 -- 4.0 -- 3.5 < > 3.9 CHLORIDE mmol/L 110 -- -- -- -- -- 111* -- 110 -- 111* -- 109 < > 109 CO2 mmol/L 19* -- -- -- -- -- 19* -- 19* -- 21* -- 22 < > 21* ANIONGAP mmol/L 11 -- -- -- -- -- 11 -- 12 -- 11 -- 10 < > 14 GLUCOSE mg/dL 161 -- -- -- -- -- 227* -- 137 -- 108 -- 78 < > 200* POC GLUCOSE MONITOR mg/dL -- 138 137 193 86 < > -- < > -- < > -- < > -- < > -- BUN SERUM mg/dL 88* -- -- -- -- -- 78* -- 78* -- 74* -- 65* < > 52* CREATININE mg/dL 5.44* -- -- -- -- -- 5.09* -- 5.41* -- 5.33* -- 4.55* < > 4.42* CALCIUM mg/dL 8.5 -- -- -- -- -- 8.3* -- 8.1* -- 8.0* -- 8.3* < > 8.3* ALBUMIN g/dL 2.8* -- -- -- -- -- 2.7* -- 2.6* -- 2.6* -- 2.8* < > 3.2* ALK PHOS Units/L -- -- -- -- -- -- -- -- -- -- -- -- -- -- 139* ALT Units/L -- -- -- -- -- -- -- -- -- -- -- -- -- -- 9 AST Units/L -- -- -- -- -- -- -- -- -- -- -- -- -- -- 15 BILIRUBIN TOTAL mg/dL -- -- -- -- -- -- -- -- -- -- -- -- -- -- 0.2 < > = values in this interval not displayed. Recent Labs Lab Units 10/15/23 0650 APTT sec 36 INR 1.05 No intake or output data in the 24 hours ending 10/15/23 0919 Vitals: 10/14/23 1120 10/14/23 1536 10/14/23 1954 10/15/23 0232 BP: 144/75 149/51 131/59 110/61 BP Location: Left arm Left arm Patient Position: Sitting Sitting Pulse: 58 63 63 56 Resp: Temp: 36.3 ??C (97.3 ??F) 36.5 ??C (97.7 ??F) 36.7 ??C (98.1 ??F) 36.8 ??C (98.3 ??F) TempSrc: Oral Oral Oral Oral SpO2: 97% 100% 99% 98% Weight: Height: ASSESSMENT/PLAN: Patient Active Problem List Diagnosis Diabetic neuropathy ([facility]) Type 2 diabetes mellitus with diabetic neuropathy, with long-term current use of insulin ([facility]) Primary hypertension Amputation of toe of right foot ([facility]) ([facility]) Iron deficiency anemia Gastroesophageal reflux disease without esophagitis Mixed hyperlipidemia Schizoaffective disorder, bipolar type ([facility]) ([facility]) 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 2 diabetes mellitus ([facility]) ([facility]) Encounter for Medicare annual wellness exam Late onset Alzheimer's dementia without behavioral disturbance ([facility]) Volume overload Anemia Toe necrosis ([facility]) ([facility]) Physical deconditioning Left leg DVT ([facility]) Pulmonary nodule Retention of urine, unspecified Unspecified osteoarthritis, unspecified site Unsteadiness on feet Weakness Parkinsonism ([facility]) Wheezing Anemia in stage 4 chronic kidney disease ([facility]) Osteomyelitis of great toe of right foot ([facility]) ([facility]) Abnormal urinalysis Acute kidney injury superimposed on CKD ([facility]) Acute on chronic diastolic congestive heart failure ([facility]) ([facility]) Bibasilar consolidations Movement disorder Shortness of breath GI bleed Bandemia Leg swelling Diabetes mellitus with hyperglycemia ([facility]) ([facility]) Dyslipidemia Alzheimer's dementia ([facility]) Volume overload - due to CKD stage 4 on IV diuresis as per Nephrology - urine output remains poor, under line placement today 10/15/2023 and then dialysis -nephrology is managing Acute on chronic diastolic heart failure - normal LV function on recent echocardiogram - moderate pulmonary hypertension likely due to left-sided heart failure Elevated troponin due to renal dysfunction - does not represent ACS - nonischemic MPI recently Essential hypertension -BP stable Diabetes mellitus type 2 Iron deficiency anemia - hemoglobin stable AMS - neuro has seen appears to be at baseline, she has Alzheimer's disease Psychiatric disorder - the CT recent the patient William Velasquez MD, [facility], [facility], [facility] [phone] 10/15/2023 9:19 AM * Perico Link RN - 10/14/2023 10:05 PM CDT At 2212 [facility] entered a follow up video consult, which has a median time of FOUR hours to be completed into the [facility] Portal. Reason for consult: follow up [facility] staff will be contacting [facility] at 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: [phone]. Psychiatrist will use this number to start video assessment as well. Please have equipment charged and ready. Device ID given to [facility] is: [id number]. [facility] will monitor consult timeframe and contact [facility] as necessary. For inpatient consults, [facility] should not call after 2300 to start a consult and patient will be seen the next morning. For inpatientor routine follow-up consults, the request is paused until 0700 if entered after 2300. For Emergency Department initial consults, [facility] sees the patient 12/01. * Jimbo Strauss MD - 10/14/2023 5:00 PM CDT Nephrology Daily Progress [facility]# [id number] SS#: [id number] Phone#: [phone] #: [phone] Subjective Chief complaint of Interval History: confused, needs a sitter Objective Vitals: 24hr Min/Max: Temp Min: 36.5 ??C (97.7 ??F) Max: 36.8 ??C (98.3 ??F) Pulse Min: 56 Max: 76 BP Min: 110/61 Max: 149/51 Resp Min: 11 Max: 18 SpO2 Min: 97 % Max: 100 % No intake or output data in the 24 hours ending 10/15/23 1308 Wt Readings from Last 3 Encounters: 10/07/23 64.5 kg (142 lb 1.6 oz) 09/03/23 58.5 kg (129 lb) 08/03/23 58.2 kg (128 lb 6.4 oz) Temp Av.7 ??C (98 ??F) Min: 36.5 ??C (97.7 ??F) Max: 36.8 ??C (98.3 ??F) BP Min: 110/61 Max: 149/51 Pulse Av.6 Min: 56 Max: 76 Resp Av.4 Min: 11 Max: 18 SpO2 Av.7 % Min: 97 % Max: 100 % Most Recent: Vitals: 10/15/23 1253 BP: 145/68 Pulse: 61 Resp: 18 Temp: 36.6 ??C (97.8 ??F) SpO2: 98% No intake/output data recorded. No intake/output data recorded. Current Facility-Administered Medications Medication Dose Route Frequency Last Rate Last Admin acetaminophen (TYLENOL) tablet 650 mg 650 mg oral Q6H PRN 650 mg at 10/12/23 1111 amLODIPine (NORVASC) tablet 10 mg 10 mg oral Daily 10 mg at 10/15/23 1259 atorvastatin (LIPITOR) tablet 20 mg 20 mg oral Nightly 20 mg at 10/14/23 2235 benztropine (COGENTIN) tablet 1.5 mg 1.5 mg oral Nightly 1.5 mg at 10/14/23 223 dextrose oral liquid liquid 15 g 15 g oral Q15 Min PRN Or dextrose (D10W) 10% bolus 250 mL 250 mL intravenous Q15 Min PRN enoxaparin (LOVENOX) syringe 30 mg 30 mg subcutaneous Daily-2100 30 mg at 10/14/23 223 famotidine (PEPCID) tablet 10 mg 10 mg oral Daily 10 mg at 10/15/23 1259 ferrous sulfate delayed release tablet 65 mg of elemental iron 65 mg of elemental iron oral BID 65 mg of elemental iron at 10/15/23 1259 fluticasone propionate (FLONASE) 50 mcg/actuation nasal spray 2 spray 2 spray each nostril Daily 2 spray at 10/15/23 1301 [Held by Provider] furosemide (LASIX) 10 mg/mL injection 40 mg 40 mg intravenous BID DIURETIC 40 mgat 10/09/23 1804 glucagon injection 1 mg 1 mg intramuscular Q30 Min PRN insulin glargine (LANTUS, SEMGLEE) 100 unit/mL injection 15 Units 0.25 Units/kg subcutaneous Nightly 15 Units at 10/14/23 224 insulin lispro (HumaLOG, ADMELOG) 100 unit/mL injection 0-10 Units 0-10 Units subcutaneous TID withmeals 2 Units at 10/14/231812 insulin lispro (HumaLOG, ADMELOG) 100 unit/mL injection 0-5 Units 0-5 Units subcutaneous Nightly 2 Units at 10/12/232119 insulin lispro (HumaLOG, ADMELOG) 100 unit/mL injection 5 Units 0.083 Units/kg subcutaneous TID with meals 5 Units at 10/14/23 1813 metoprolol tartrate (LOPRESSOR) immediate release tablet 25 mg 25 mg oral BID 25 mg at 10/15/23 1259 OLANZapine (ZyPREXA) 2.5 mg in sterile water 0.5 mL (5 mg/mL) syringe 2.5 mg intramuscular Q12H PRN OLANZapine (ZyPREXA) tablet 2.5 mg 2.5 mg oral BID PRN ondansetron (ZOFRAN) injection 4 mg 4 mg intravenous Q6H PRN ramelteon (ROZEREM) tablet 8 mg 8 mg oral Nightly PRN 8 mg at 10/13/232252 risperiDONE (RisperDAL) tablet 1 mg 1 mg oral Nightly 1 mg at 10/14/235 Continuous Medications Medication Dose Last Rate Physical Exam: General Appearance: Alert, cooperative, confused Head: Normocephalic, without obvious abnormality, atraumatic Eyes: PERRL, conjunctiva/corneas clear, EOM's intact, both eyes, anicteric Neck: Supple, symmetrical, trachea midline, no adenopathy; thyroid: No enlargement/tenderness/nodules; no carotid bruits, No JVD Lungs: Decreased breath sounds bilaterally Cardiovascular: Regular rate and rhythm, S1 and S2 normal, no murmur, rub or gallop Abdomen: Soft, non-tender, bowel sounds active all four quadrants, non-distended Extremities: Extremities normal, no LE edema Skin: Skin color, texture, turgor normal, no rashes, lesions or bruising Neurologic: Alert & oriented person, difficult time with orientation questions Psychosocial: Normal affect and mood Dialysis Access Exam: Lab/Radiology/Diagnostic Review: Recent Labs Lab Units 10/15/23 1255 10/15/23 0650 10/14/23 0747 10/14/23 0613 10/13/23 0742 10/13/23 0620 SODIUM mmol/L -- 140 -- 141 -- 141 POTASSIUM PLASMA mmol/L -- 4.6 -- 4.8 -- 4.4 CHLORIDE mmol/L -- 110 -- 111* -- 110 CO2 mmol/L -- 19* -- 19* -- 19* BUN SERUM mg/dL -- 88* -- 78* -- 78* CREATININE mg/dL -- 5.44* -- 5.09* -- 5.41* [id number] mL/min/1.73 m2 -- 8* -- 8* -- 8* GLUCOSE mg/dL -- 161 -- 227* -- 137 POC GLUCOSE MONITOR mg/dL 104 -- < > -- < > -- CALCIUM mg/dL -- 8.5 -- 8.3* -- 8.1* ALBUMIN g/dL -- 2.8* -- 2.7* -- 2.6* PHOSPHORUS PLASMA mg/dL -- 6.2* -- 5.5* -- 6.2* < > = values in this interval not displayed. Additional Labs: Recent Labs Lab Units 10/10/23 1808 WBC K/cumm 8.9 HEMOGLOBIN g/dL 9.6* HEMATOCRIT % 29.6* PLATELETS K/cumm 322 NEUTROS PCT % 71.5 LYMPHS PCT % 20.0 MONOS PCT % 6.4 EOS PCT % 1.5 )Assessment/Plan 1. ESRD: Due to diabetes and hypertension. Stage IV. As off 10/14/2023 spoke to daughter. Will plan to start HD for . Will initiate out pt HD placement as well. 2. Hypertension: Adjust blood pressure medicines as needed 3. Edema: Mostly due to pulmonary hypertension and chronic kidney disease. Ongoing diuresis. Expectsome rising creatinine with diuresis. As off 10/11/2023 edema is better. Diuretics on hold 4. Metabolic acidosis: Due to renal failure. If it goes any lower will need supplementation. 5. High phosphorus: will add a binder DICTATION DISCLAIMER: This note is transcribed using the [employer] direct voice recognition system without human dust control engineer. In an effort to expedite patient care, this note has not been adjusted for typographical, grammatical, and syntax by a trained medical equipment sales. Portions of this note have been copied from the medical record, but edited appropriately to accurately reflect the patient's current clinical state. Jimbo Strauss Office/exchange: [phone] * William Velasquez MD - 10/14/2023 1:44 PM CDT Daily Progress [facility] Cardiology Subjective: Urine output remains very poor, creatinine is now down trending denies any chest pain shortness of breath OBJECTIVE: Past Medical History: Diagnosis Date Anemia Arthritis CHF (congestive heart failure) (CMS/HCC) (HCC) Dementia (HCC) Depression Diabetic neuropathy (HCC) GERD (gastroesophageal reflux disease) HL (hearing loss) Hyperlipidemia Hypertension Movement disorder Osteomyelitis (HCC) Renal disorder Schizophrenia (HCC) Type 2 diabetes mellitus (HCC) Family History Problem Relation Age of Onset Diabetes Mother Heart disease Mother Kidney disease Mother Stomach cancer Father Alcohol abuse Father Diabetes Sister Diabetes Sister Diabetes Brother Scheduled Medications Medication Dose Route Frequency amLODIPine (NORVASC) tablet 10 mg 10 mg oral Daily atorvastatin (LIPITOR) tablet 20 mg 20 mg oral Nightly benztropine (COGENTIN) tablet 1.5 mg 1.5 mg oral Nightly enoxaparin (LOVENOX) syringe 30 mg 30 mg subcutaneous Daily-2099 famotidine (PEPCID) tablet 10 mg 10 mg oral Daily ferrous sulfate delayed release tablet 65 mg of elemental iron 65 mg of elemental iron oral BID fluticasone propionate (FLONASE) 50 mcg/actuation nasal spray 2 spray 2 spray each nostril Daily [Held by Provider] furosemide (LASIX) 10 mg/mL injection 40 mg 40 mg intravenous BID DIURETIC insulin glargine (LANTUS, SEMGLEE) 100 unit/mL injection 15 Units 0.25 Units/kg subcutaneous Nightly insulin lispro (HumaLOG, ADMELOG) 100 unit/mL injection 0-10 Units 0-10 Units subcutaneous TID withmeals insulin lispro (HumaLOG, ADMELOG) 100 unit/mL injection 0-5 Units 0-5 Units subcutaneous Nightly insulin lispro (HumaLOG, ADMELOG) 100 unit/mL injection 5 Units 0.083 Units/kg subcutaneous TID with meals metoprolol tartrate (LOPRESSOR) immediate release tablet 25 mg 25 mg oral BID risperiDONE (RisperDAL) tablet 1 mg 1 mg oral Nightly Exam: Gen: Comfortable, NAD CVS: RRR, S1, S2 present, systolic murmur GI: Soft Non tender Chest: Air entry reduced CTAB Psych: Appropriate mood and affect Neuro: Alert, oriented, No deficits. Recent Labs Lab Units 10/10/23 1808 10/08/23 1155 WBC K/cumm 8.9 8.2 HEMOGLOBIN g/dL 9.6* 8.9* HEMATOCRIT % 29.6* 29.0* PLATELETS K/cumm 322 311 Recent Labs Lab Units 10/14/23 1254 10/14/23 0747 10/14/23 0613 10/14/23 0207 10/13/23 2249 10/13/23 0742 10/13/23 0620 10/12/23 0815 10/12/23 0656 10/11/23 0720 10/11/23 0443 10/10/23 0744 10/10/23 0501 10/08/23 1336 10/08/23 1155 SODIUM mmol/L -- -- 141 -- -- -- 141 -- 143 -- 141 -- 141 < > 144 POTASSIUM PLASMA mmol/L -- -- 4.8 -- -- -- 4.4 -- 4.0 -- 3.5 -- 3.9 < > 3.9 CHLORIDE mmol/L -- -- 111* -- -- -- 110 -- 111* -- 109 -- 106 < > 109 CO2 mmol/L -- -- 19* -- -- -- 19* -- 21* -- 22 -- 20* < > 21* ANIONGAP mmol/L -- -- 11 -- -- -- 12 -- 11 -- 10 -- 15 < > 14 GLUCOSE mg/dL -- -- 227* -- -- -- 137 -- 108 -- 78 -- 78 < > 200* POC GLUCOSE MONITOR mg/dL 86 270* -- 206* 131 < > -- < > -- < > -- < > -- < > -- BUN SERUM mg/dL -- -- 78* -- -- -- 78* -- 74* -- 65* -- 64* < > 52* CREATININE mg/dL -- -- 5.09* -- -- -- 5.41* -- 5.33* -- 4.55* -- 4.68* < > 4.42* CALCIUM mg/dL -- -- 8.3* -- -- -- 8.1* -- 8.0* -- 8.3* -- 8.4* < > 8.3* ALBUMIN g/dL -- -- 2.7* -- -- -- 2.6* -- 2.6* -- 2.8* -- 3.0* < > 3.2* ALK PHOS Units/L -- -- -- -- -- -- -- -- -- -- -- -- -- -- 139* ALT Units/L -- -- -- -- -- -- -- -- -- -- -- -- -- -- 9 AST Units/L -- -- -- -- -- -- -- -- -- -- -- -- -- -- 15 BILIRUBIN TOTAL mg/dL -- -- -- -- -- -- -- -- -- -- -- -- -- -- 0.2 < > = values in this interval not displayed. Intake/Output Summary (Last 24 hours) at 10/14/2023 1345 Last data filed at 10/13/2023 2245 Gross per 24 hour Intake 480 ml Output -- Net 480 ml Vitals: 10/14/23 0450 10/14/23 0739 10/14/23 0830 10/14/23 1120 BP: 130/57 131/52 121/55 144/75 BP Location: Left arm Left arm Left arm Patient Position: Lying Sitting Sitting Pulse: 59 56 56 58 Resp: 16 17 16 Temp: 37 ??C (98.6 ??F) 36.5 ??C (97.7 ??F) 36.3 ??C (97.3 ??F) TempSrc: Oral Oral Oral SpO2: 98% 99% 97% Weight: Height: ASSESSMENT/PLAN: Patient Active Problem List Diagnosis Diabetic neuropathy ([facility]) Type 2 diabetes mellitus with diabetic neuropathy, with long-term current use of insulin ([facility]) Primary hypertension Amputation of toe of right foot ([facility]) ([facility]) Iron deficiency anemia Gastroesophageal reflux disease without esophagitis Mixed hyperlipidemia Schizoaffective disorder, bipolar type ([facility]) ([facility]) 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 2 diabetes mellitus ([facility]) ([facility]) Encounter for Medicare annual wellness exam Late onset Alzheimer's dementia without behavioral disturbance (HCC) Volume overload Anemia Toe necrosis (CMS/HCC) (HCC) Physical deconditioning Left leg DVT (HCC) Pulmonary nodule Retention of urine, unspecified Unspecified osteoarthritis, unspecified site Unsteadiness on feet Weakness Parkinsonism (HCC) Wheezing Anemia in stage 4 chronic kidney disease (HCC) Osteomyelitis of great toe of right foot (CMS/HCC) (HCC) Abnormal urinalysis Acute kidney injury superimposed on CKD (HCC) Acute on chronic diastolic congestive heart failure (CMS/HCC) (HCC) Bibasilar consolidations Movement disorder Shortness of breath GI bleed Bandemia Leg swelling Diabetes mellitus with hyperglycemia (CMS/HCC) (HCC) Dyslipidemia Alzheimer's dementia (HCC) Volume overload - due to CKD stage 4 on IV diuresis as per Nephrology - creatinine is down trending now but very poor urine output, clinically does not appear to be as volume overloaded currently CKD stage IV -nephrology is managing - creatinine is down down trending urine output remains very poor Acute on chronic diastolic heart failure - normal LV function on recent echocardiogram - moderate pulmonary hypertension likely due to left-sided heart failure Elevated troponin due to renal dysfunction - does not represent ACS - nonischemic MPI recently Essential hypertension -BP stable Diabetes mellitus type 2 Iron deficiency anemia - hemoglobin stable AMS - neuro has seen appears to be at baseline, she has Alzheimer's disease Psychiatric disorder - the CT recent the patient William Velasquez MD, [facility], [facility] [phone] 10/14/2023 1:45 PM * Gill Gamboa MD - 10/14/2023 12:11 PM CDT General Medicine Progress Note Interval Events: This is a 72-year-old female with history of arthritis, CHF, dementia, depression, diabetic neuropathy, hyperlipidemia, advance insufficiency who came to the hospital with complaint of lower extremity swelling. Clinical findings consistent with volumeOverload. Nephrology in Cardiology have been following. Nephrology primarily guiding diuresis with IV Lasix. Advancement of renal insufficiency has been noted. Awaiting for Nephrology to help clarify further volume management Subjective: Chief complaint: Shortness of breath. Patient seen in room. Patient reports that she does not use oxygen at home. Uses BiPAP at night. Objective: Vitals: 24hr Min/Max: Temp Min: 36.3 ??C (97.3 ??F) Max: 37.2 ??C (98.9 ??F) Pulse Min: 56 Max: 69 BP Min: 121/55 Max: 149/70 Resp Min: 16 Max: 17 SpO2 Min: 97 % Max: 99 % Most Recent: Vitals: 10/14/23 0450 10/14/23 0739 10/14/23 0830 10/14/23 1120 BP: 130/57 131/52 121/55 144/75 BP Location: Left arm Left arm Left arm Patient Position: Lying Sitting Sitting Pulse: 59 56 56 58 Resp: 16 17 16 Temp: 37 ??C (98.6 ??F) 36.5 ??C (97.7 ??F) 36.3 ??C (97.3 ??F) TempSrc: Oral Oral Oral SpO2: 98% 99% 97% Weight: Height: Intake/Output Summary (Last 24 hours) at 10/14/2023 1211 Last data filed at 10/13/2023 2245 Gross per 24 hour Intake 480 ml Output -- Net 480 ml Physical Exam: Physical Exam GEN: Alert. NAD HENT: Normocephalic. Atraumatic. CVS: RRR CHEST: Coarse breath sounds bilaterally ABD: soft. ND EXT: no edema Lab/Radiology/Diagnostic Review: Reviewed. Recent Results (from the past 24 hour(s)) POCT glucose Collection Time: 10/13/23 12:31 PM Result Value Ref Range Glucose, POC 128 70 - 199 mg/dL POCT glucose Collection Time: 10/13/23 6:19 PM Result Value Ref Range Glucose, POC 126 70 - 199 mg/dL POCT glucose Collection Time: 10/13/23 10:49 PM Result Value Ref Range Glucose, POC 131 70 - 199 mg/dL POCT glucose Collection Time: 10/14/23 2:07 AM Result Value Ref Range Glucose, POC 206 (H) 70 - 199 mg/dL Renal function panel Collection Time: 10/14/23 6:13 AM Result Value Ref Range Sodium 141 135 - 145 mmol/L Potassium, pl 4.8 3.3 - 4.9 mmol/L Chloride 111 (H) 97 - 110 mmol/L CO2 19 (L) 22 - 32 mmol/L Anion gap 11 2 - 15 mmol/L BUN 78 (H) 6 - 25 mg/dL Creatinine 5.09 (H) 0.60 - 1.10 mg/dL Glucose 227 (H) 70 - 199 mg/dL Calcium 8.3 (L) 8.5 - 10.3 mg/dL Phosphorus, pl 5.5 (H) 2.3 - 4.5 mg/dL Albumin 2.7 (L) 3.5 - 5.0 g/dL eGFR Collection Time: 10/14/23 6:13 AM Result Value Ref Range eGFR 8 (L) >=60 mL/min/1.73 m2 POCT glucose Collection Time: 10/14/23 7:47 AM Result Value Ref Range Glucose, POC 270 (H) 70 - 199 mg/dL Assessment and Plan: Principal Problem: Acute on chronic diastolic congestive heart failure (CMS/HCC) ([facility]) Active Problems: Diabetic neuropathy ([facility]) Type 2 diabetes mellitus with diabetic neuropathy, with long-term current use of insulin ([facility]) Primary hypertension Gastroesophageal reflux disease without esophagitis Mixed hyperlipidemia Schizoaffective disorder, bipolar type ([facility]) ([facility]) Anemia in stage 4 chronic kidney disease ([facility]) Acute kidney injury superimposed on CKD ([facility]) Leg swelling Diabetes mellitus with hyperglycemia ([facility]) ([facility]) Dyslipidemia Alzheimer's dementia ([facility]) Acute hypoxemic respiratory failure. Currently on supplemental oxygen. Secondary to overload secondary to combination of renal/cardiac decompensation. Nephrology guiding diuresis with IV Lasix. Will continue to monitor O2 status. Wean O2 as tolerated. Acute on chronic renal insufficiency. Creatinine is 5.09. Diuresis IV currently noted to be on hold. Will defer to Nephrology to continue to guide diuresis this time. Monitor closely. Acute on chronic diastolic congestive heart failure exacerbation. Volume management per Nephrology. Type 2 diabetes. Continue Lantus 15 units q.h.s. and Humalog 5 units t.i.d. with meals. Monitor Accu-Cheks q.a.c. q.h.s. adjust with a low-dose sliding scale needed. Essential hypertension. Continue Lopressor 25 mg b.i.d.. Essential hypertension. Continue amlodipine 10 mg daily. Fen. Continue to monitor electrolytes. Disposition: Coordinate with Dr. العلي regarding progression of renal insufficiency and guidance on diuresis. Discharge planning: Will need PT/OT evaluation. Expected date of discharge: 10/20/2023 My total encounter time on 10/14/2023 was 36 minutes which was spent in the activities documented inthe note. This includes time spent prior to the visit and after the visit in direct care of the patient. This time does not include time spent in any separately reportable services. Gill Gamboa MD Hospitalist [phone] 2:11 PM * Jimbo Strauss MD - 10/13/2023 1:08 PM CDT Nephrology Daily Progress [facility]# [id number] SS#: [id number] Phone#: [phone] #: 1950 Subjective Chief complaint of Interval History: confused, needs a sitter Objective Vitals: 24hr Min/Max: Temp Min: 36.5 ??C (97.7 ??F) Max: 36.8 ??C (98.3 ??F) Pulse Min: 56 Max: 76 BP Min: 110/61 Max: 149/51 Resp Min: 11 Max: 18 SpO2 Min: 97 % Max: 100 % No intake or output data in the 24 hours ending 10/15/23 1308 Wt Readings from Last 3 Encounters: 10/07/23 64.5 kg (142 lb 1.6 oz) 09/03/23 58.5 kg (129 lb) 08/03/23 58.2 kg (128 lb 6.4 oz) Temp Av.7 ??C (98 ??F) Min: 36.5 ??C (97.7 ??F) Max: 36.8 ??C (98.3 ??F) BP Min: 110/61 Max: 149/51 Pulse Av.6 Min: 56 Max: 76 Resp Av.4 Min: 11 Max: 18 SpO2 Av.7 % Min: 97 % Max: 100 % Most Recent: Vitals: 10/15/23 1253 BP: 145/68 Pulse: 61 Resp: 18 Temp: 36.6 ??C (97.8 ??F) SpO2: 98% No intake/output data recorded. No intake/output data recorded. Current Facility-Administered Medications Medication Dose Route Frequency Last Rate Last Admin acetaminophen (TYLENOL) tablet 650 mg 650 mg oral Q6H PRN 650 mg at 10/12/23 1111 amLODIPine (NORVASC) tablet 10 mg 10 mg oral Daily 10 mg at 10/15/23 1259 atorvastatin (LIPITOR) tablet 20 mg 20 mg oral Nightly 20 mg at 10/14/23 2235 benztropine (COGENTIN) tablet 1.5 mg 1.5 mg oral Nightly 1.5 mg at 10/14/23 223 dextrose oral liquid liquid 15 g 15 g oral Q15 Min PRN Or dextrose (D10W) 10% bolus 250 mL 250 mL intravenous Q15 Min PRN enoxaparin (LOVENOX) syringe 30 mg 30 mg subcutaneous Daily-2100 30 mg at 10/14/232235 famotidine (PEPCID) tablet 10 mg 10 mg oral Daily 10 mg at 10/15/23 1259 ferrous sulfate delayed release tablet 65 mg of elemental iron 65 mg of elemental iron oral BID 65 mg of elemental iron at 10/15/23 1259 fluticasone propionate (FLONASE) 50 mcg/actuation nasal spray 2 spray 2 spray each nostril Daily 2 spray at 10/15/23 1301 [Held by Provider] furosemide (LASIX) 10 mg/mL injection 40 mg 40 mg intravenous BID DIURETIC 40 mgat 10/09/23 1804 glucagon injection 1 mg 1 mg intramuscular Q30 Min PRN insulin glargine (LANTUS, SEMGLEE) 100 unit/mL injection 15 Units 0.25 Units/kg subcutaneous Nightly 15 Units at 10/14/23 224 insulin lispro (HumaLOG, ADMELOG) 100 unit/mL injection 0-10 Units 0-10 Units subcutaneous TID withmeals 2 Units at 10/14/231812 insulin lispro (HumaLOG, ADMELOG) 100 unit/mL injection 0-5 Units 0-5 Units subcutaneous Nightly 2 Units at 10/12/232119 insulin lispro (HumaLOG, ADMELOG) 100 unit/mL injection 5 Units 0.083 Units/kg subcutaneous TID with meals 5 Units at 10/14/23 1813 metoprolol tartrate (LOPRESSOR) immediate release tablet 25 mg 25 mg oral BID 25 mg at 10/15/23 1259 OLANZapine (ZyPREXA) 2.5 mg in sterile water 0.5 mL (5 mg/mL) syringe 2.5 mg intramuscular Q12H PRN OLANZapine (ZyPREXA) tablet 2.5 mg 2.5 mg oral BID PRN ondansetron (ZOFRAN) injection 4 mg 4 mg intravenous Q6H PRN ramelteon (ROZEREM) tablet 8 mg 8 mg oral Nightly PRN 8 mg at 10/13/23 2253 risperiDONE (RisperDAL) tablet 1 mg 1 mg oral Nightly 1 mg at 10/14/23 2235 Continuous Medications Medication Dose Last Rate Physical Exam: General Appearance: Alert, cooperative, confused Head: Normocephalic, without obvious abnormality, atraumatic Eyes: PERRL, conjunctiva/corneas clear, EOM's intact, both eyes, anicteric Neck: Supple, symmetrical, trachea midline, no adenopathy; thyroid: No enlargement/tenderness/nodules; no carotid bruits, No JVD Lungs: Decreased breath sounds bilaterally Cardiovascular: Regular rate and rhythm, S1 and S2 normal, no murmur, rub or gallop Abdomen: Soft, non-tender, bowel sounds active all four quadrants, non-distended Extremities: Extremities normal, no LE edema Skin: Skin color, texture, turgor normal, no rashes, lesions or bruising Neurologic: Alert & oriented person, difficult time with orientation questions Psychosocial: Normal affect and mood Dialysis Access Exam: Lab/Radiology/Diagnostic Review: Recent Labs Lab Units 10/15/23 1255 10/15/23 0650 10/14/23 0747 10/14/23 0613 10/13/23 0742 10/13/23 0620 SODIUM mmol/L -- 140 -- 141 -- 141 POTASSIUM PLASMA mmol/L -- 4.6 -- 4.8 -- 4.4 CHLORIDE mmol/L -- 110 -- 111* -- 110 CO2 mmol/L -- 19* -- 19* -- 19* BUN SERUM mg/dL -- 88* -- 78* -- 78* CREATININE mg/dL -- 5.44* -- 5.09* -- 5.41* [id number] mL/min/1.73 m2 -- 8* -- 8* -- 8* GLUCOSE mg/dL -- 161 -- 227* -- 137 POC GLUCOSE MONITOR mg/dL 104 -- < > -- < > -- CALCIUM mg/dL -- 8.5 -- 8.3* -- 8.1* ALBUMIN g/dL -- 2.8* -- 2.7* -- 2.6* PHOSPHORUS PLASMA mg/dL -- 6.2* -- 5.5* -- 6.2* < > = values in this interval not displayed. Additional Labs: Recent Labs Lab Units 10/10/23 1808 WBC K/cumm 8.9 HEMOGLOBIN g/dL 9.6* HEMATOCRIT % 29.6* PLATELETS K/cumm 322 NEUTROS PCT % 71.5 LYMPHS PCT % 20.0 MONOS PCT % 6.4 EOS PCT % 1.5 )Assessment/Plan 1. chronic kidney disease: Due to diabetes and hypertension. Stage IV. 2. Hypertension: Adjust blood pressure medicines as needed 3. Edema: Mostly due to pulmonary hypertension and chronic kidney disease. Ongoing diuresis. Expectsome rising creatinine with diuresis. As off 10/11/2023 edema is better. Diuretics on hold 4. Metabolic acidosis: Due to renal failure. If it goes any lower will need supplementation. DICTATION DISCLAIMER: This note is transcribed using the [employer] direct voice recognition system without human dust control engineer. In an effort to expedite patient care, this note has not been adjusted for typographical, grammatical, and syntax by a trained medical equipment sales. Portions of this note have been copied from the medical record, but edited appropriately to accurately reflect the patient's current clinical state. Jimbo Strauss Office/exchange: [phone] * William Velasquez MD - 10/13/2023 9:53 AM CDT Daily Progress [facility] Cardiology Subjective: poor UOP noted, NO CP or leg swelling or SOB. OBJECTIVE: Past Medical History: Diagnosis Date Anemia Arthritis CHF (congestive heart failure) (CMS/HCC) (HCC) Dementia (HCC) Depression Diabetic neuropathy (HCC) GERD (gastroesophageal reflux disease) HL (hearing loss) Hyperlipidemia Hypertension Movement disorder Osteomyelitis (HCC) Renal disorder Schizophrenia (HCC) Type 2 diabetes mellitus (HCC) Family History Problem Relation Age of Onset Diabetes Mother Heart disease Mother Kidney disease Mother Stomach cancer Father Alcohol abuse Father Diabetes Sister Diabetes Sister Diabetes Brother Scheduled Medications Medication Dose Route Frequency amLODIPine (NORVASC) tablet 10 mg 10 mg oral Daily atorvastatin (LIPITOR) tablet 20 mg 20 mg oral Nightly benztropine (COGENTIN) tablet 1.5 mg 1.5 mg oral BID enoxaparin (LOVENOX) syringe 30 mg 30 mg subcutaneous Daily-2100 famotidine (PEPCID) tablet 10 mg 10 mg oral Daily ferrous sulfate delayed release tablet 65 mg of elemental iron 65 mg of elemental iron oral BID fluticasone propionate (FLONASE) 50 mcg/actuation nasal spray 2 spray 2 spray each nostril Daily [Held by Provider] furosemide (LASIX) 10 mg/mL injection 40 mg 40 mg intravenous BID DIURETIC insulin glargine (LANTUS, SEMGLEE) 100 unit/mL injection 15 Units 0.25 Units/kg subcutaneous Nightly insulin lispro (HumaLOG, ADMELOG) 100 unit/mL injection 0-10 Units 0-10 Units subcutaneous TID withmeals insulin lispro (HumaLOG, ADMELOG) 100 unit/mL injection 0-5 Units 0-5 Units subcutaneous Nightly insulin lispro (HumaLOG, ADMELOG) 100 unit/mL injection 5 Units 0.083 Units/kg subcutaneous TID with meals metoprolol tartrate (LOPRESSOR) immediate release tablet 25 mg 25 mg oral BID risperiDONE (RisperDAL) tablet 2 mg 2 mg oral Nightly Exam: Gen: Comfortable, NAD CVS: RRR, S1, S2 present, systolic murmur GI: Soft Non tender Chest: Air entry reduced CTAB Psych: Appropriate mood and affect Neuro: Alert, oriented, No deficits. Recent Labs Lab Units 10/10/23 1808 10/08/23 1155 10/06/23 2225 WBC K/cumm 8.9 8.2 9.6 HEMOGLOBIN g/dL 9.6* 8.9* 9.2* HEMATOCRIT % 29.6* 29.0* 29.1* PLATELETS K/cumm 322 311 280 Recent Labs Lab Units 10/13/23 0742 10/13/23 0620 10/12/23 2340 10/12/23 2046 10/12/23 1714 10/12/23 0815 10/12/23 0656 10/11/23 0720 10/11/23 0443 10/10/23 0744 10/10/23 0501 10/09/23 0744 10/09/23 0714 10/08/23 1336 10/08/23 1155 10/07/23 0917 10/06/23 2225 SODIUM mmol/L -- 141 -- -- -- -- 143 -- 141 -- 141 -- 144 < > 144 -- 139 POTASSIUM PLASMA mmol/L -- 4.4 -- -- -- -- 4.0 -- 3.5 -- 3.9 -- 4.1 < > 3.9 -- 4.4 CHLORIDE mmol/L -- 110 -- -- -- -- 111* -- 109 -- 106 -- 110 < > 109 -- 108 CO2 mmol/L -- 19* -- -- -- -- 21* -- 22 -- 20* -- 19* < > 21* -- 18* ANIONGAP mmol/L -- 12 -- -- -- -- 11 -- 10 -- 15 -- 15 < > 14 -- 13 GLUCOSE mg/dL -- 137 -- -- -- -- 108 -- 78 -- 78 -- 90 < > 200* -- 285* POC GLUCOSE MONITOR mg/dL 135 -- 212* 217* 158 < > -- < > -- < > -- < > -- < > -- < > -- BUN SERUM mg/dL -- 78* -- -- -- -- 74* -- 65* -- 64* -- 59* < > 52* -- 54* CREATININE mg/dL -- 5.41* -- -- -- -- 5.33* -- 4.55* -- 4.68* -- 4.59* < > 4.42* -- 4.09* CALCIUM mg/dL -- 8.1* -- -- -- -- 8.0* -- 8.3* -- 8.4* -- 8.2* < > 8.3* -- 8.0* ALBUMIN g/dL -- 2.6* -- -- -- -- 2.6* -- 2.8* -- 3.0* -- 2.7* -- 3.2* -- 3.0* ALK PHOS Units/L -- -- -- -- -- -- -- -- -- -- -- -- -- -- 139* -- 154* ALT Units/L -- -- -- -- -- -- -- -- -- -- -- -- -- -- 9 -- 12 AST Units/L -- -- -- -- -- -- -- -- -- -- -- -- -- -- 15 -- 26 BILIRUBIN TOTAL mg/dL -- -- -- -- -- -- -- -- -- -- -- -- -- -- 0.2 -- 0.2 < > = values in this interval not displayed. Intake/Output Summary (Last 24 hours) at 10/13/2023 0953 Last data filed at 10/12/2023 2305 Gross per 24 hour Intake -- Output 300 ml Net -300 ml Vitals: 10/12/23 2008 10/13/23 0002 10/13/23 0404 10/13/23 0700 BP: 131/66 105/64 113/53 127/69 BP Location: Patient Position: Pulse: 70 60 65 68 Resp: 17 16 16 16 Temp: 36.7 ??C (98.1 ??F) 37 ??C (98.6 ??F) 36.9 ??C (98.4 ??F) TempSrc: Oral Oral SpO2: 97% 97% 96% 97% Weight: Height: ASSESSMENT/PLAN: Patient Active Problem List Diagnosis Diabetic neuropathy ([facility]) Type 2 diabetes mellitus with diabetic neuropathy, with long-term current use of insulin ([facility]) Primary hypertension Amputation of toe of right foot ([facility]) ([facility]) Iron deficiency anemia Gastroesophageal reflux disease without esophagitis Mixed hyperlipidemia Schizoaffective disorder, bipolar type ([facility]) ([facility]) 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 2 diabetes mellitus ([facility]) ([facility]) Encounter for Medicare annual wellness exam Late onset Alzheimer's dementia without behavioral disturbance (HCC) Volume overload Anemia Toe necrosis (CMS/HCC) (HCC) Physical deconditioning Left leg DVT (HCC) Pulmonary nodule Retention of urine, unspecified Unspecified osteoarthritis, unspecified site Unsteadiness on feet Weakness Parkinsonism (HCC) Wheezing Anemia in stage 4 chronic kidney disease (HCC) Osteomyelitis of great toe of right foot (CMS/HCC) (HCC) Abnormal urinalysis Acute kidney injury superimposed on CKD (HCC) Acute on chronic diastolic congestive heart failure (CMS/HCC) (HCC) Bibasilar consolidations Movement disorder Shortness of breath GI bleed Bandemia Leg swelling Diabetes mellitus with hyperglycemia (CMS/HCC) (HCC) Dyslipidemia Alzheimer's dementia (HCC) Volume overload - due to CKD stage 4 on IV diuresis as per Nephrology currently on IV Lasix urine output not recorded will order accurate input output CKD stage IV -nephrology is managing seen by Dr. العلي Acute on chronic diastolic heart failure - normal LV function on recent echocardiogram - moderate pulmonary hypertension likely due to left-sided heart failure Elevated troponin due to renal dysfunction - does not represent ACS - nonischemic MPI recently Essential hypertension -BP stable Diabetes mellitus type 2 Iron deficiency anemia - hemoglobin stable AMS - neuro has seen appears to be at baseline, she has [place] also. William Velasquez MD, [facility], [facility], [facility] [phone] 10/13/2023 9:53 AM * Bev Adames MD - 10/13/2023 9:29 AM CDT DAILY PROGRESS NOTE C/C:Swollen legs Interval History: No new events SUBJECTIVE: Complaints: 7/10 Pain in feet ROS: OBJECTIVE: Vitals: Temp (24hrs), Av.8 ??C (98.3 ??F), Min:36.7 ??C (98.1 ??F), Max:37 ??C (98.6 ??F) Vitals: 10/12/23 2008 10/13/23 0002 10/13/23 0404 10/13/23 0700 BP: 131/66 105/64 113/53 127/69 BP Location: Patient Position: Pulse: 70 60 65 68 Resp: 17 16 16 16 Temp: 36.7 ??C (98.1 ??F) 37 ??C (98.6 ??F) 36.9 ??C (98.4 ??F) TempSrc: Oral Oral SpO2: 97% 97% 96% 97% Weight: Height: LDA: I/O: Intake/Output Summary (Last 24 hours) at 10/13/2023 0929 Last data filed at 10/12/2023 2305 Gross per 24 hour Intake -- Output 300 ml Net -300 ml Physical Exam General:Lying in bed, sleeping, arousable,on RA,NAD SHEENT:Skin warm,dry,no rashes. No icterus,no cyanosis,no pallor Neck:Supple Respi:Slightly diminished breath sounds silverio Cardio:RRR,no murmur GI:Abdomen soft,bowel sounds +,non tender,not distended. Extre: No edema ,no cyanosis,no pallor Neuro:AAO x2 Psych:No agitation Laboratory: Recent Results (from the past 24 hour(s)) POCT glucose Collection Time: 10/12/23 12:20 PM Result Value Ref Range Glucose, POC 212 (H) 70 - 199 mg/dL POCT glucose Collection Time: 10/12/23 5:14 PM Result Value Ref Range Glucose, POC 158 70 - 199 mg/dL POCT glucose Collection Time: 10/12/23 8:46 PM Result Value Ref Range Glucose, POC 217 (H) 70 - 199 mg/dL POCT glucose Collection Time: 10/12/23 11:40 PM Result Value Ref Range Glucose, POC 212 (H) 70 - 199 mg/dL Renal function panel Collection Time: 10/13/23 6:20 AM Result Value Ref Range Sodium 141 135 - 145 mmol/L Potassium, pl 4.4 3.3 - 4.9 mmol/L Chloride 110 97 - 110 mmol/L CO2 19 (L) 22 - 32 mmol/L Anion gap 12 2 - 15 mmol/L BUN 78 (H) 6 - 25 mg/dL Creatinine 5.41 (H) 0.60 - 1.10 mg/dL Glucose 137 70 - 199 mg/dL Calcium 8.1 (L) 8.5 - 10.3 mg/dL Phosphorus, pl 6.2 (H) 2.3 - 4.5 mg/dL Albumin 2.6 (L) 3.5 - 5.0 g/dL eGFR Collection Time: 10/13/23 6:20 AM Result Value Ref Range eGFR 8 (L) >=60 mL/min/1.73 m2 POCT glucose Collection Time: 10/13/23 7:42 AM Result Value Ref Range Glucose, POC 135 70 - 199 mg/dL Radiology: Scheduled Medications: amLODIPine, 10 mg, oral, Daily atorvastatin, 20 mg, oral, Nightly benztropine, 1.5 mg, oral, BID enoxaparin, 30 mg, subcutaneous, Daily-2100 famotidine, 10 mg, oral, Daily ferrous sulfate, 65 mg of elemental iron, oral, BID fluticasone propionate, 2 spray, each nostril, Daily [Held by Provider] furosemide, 40 mg, intravenous, BID DIURETIC insulin glargine, 0.25 Units/kg, subcutaneous, Nightly insulin lispro, 0-10 Units, subcutaneous, TID with meals insulin lispro, 0-5 Units, subcutaneous, Nightly insulin lispro, 0.083 Units/kg, subcutaneous, TID with meals metoprolol tartrate, 25 mg, oral, BID risperiDONE, 2 mg, oral, Nightly Current Facility-Administered Medications: acetaminophen (TYLENOL) tablet 650 mg, 650 mg, oral, Q6H PRN, Rosa Jade, JARAD, 650 mg at 10/12/23 1111 amLODIPine (NORVASC) tablet 10 mg, 10 mg, oral, Daily, Wally Plummer MD, 10 mg at 10/13/23 09 atorvastatin (LIPITOR) tablet 20 mg, 20 mg, oral, Nightly, Rosa Jade NP, 20 mg at 10/12/232118 benztropine (COGENTIN) tablet 1.5 mg, 1.5 mg, oral, BID, Rosa Jade NP, 1.5 mg at 10/13/23 09 dextrose oral liquid liquid 15 g, 15 g, oral, Q15 Min PRN OR dextrose (D10W) 10% bolus 250 mL, 250 mL, intravenous, Q15 Min PRN, Rosa Jade, CLINICAL NURSE LEADER enoxaparin (LOVENOX) syringe 30 mg, 30 mg, subcutaneous, Daily-2100, Flash Guillaume- Flash Guzman MD, 30 mg at 10/12/232118 famotidine (PEPCID) tablet 10 mg, 10 mg, oral, Daily, Rosa Jade NP, 10 mg at 10/13/23901 ferrous sulfate delayed release tablet 65 mg of elemental iron, 65 mg of elemental iron, oral, BID,Rosa Jade NP, 65 mg of elemental iron at 10/13/23901 fluticasone propionate (FLONASE) 50 mcg/actuation nasal spray 2 spray, 2 spray, each nostril, Daily, Rosa Jade, JARAD, 2 spray at 10/11/23 09 [Held by Provider] furosemide (LASIX) 10 mg/mL injection 40 mg, 40 mg, intravenous, BID DIURETIC, Rosa Jade, JARAD, 40 mg at 10/09/231803 glucagon injection 1 mg, 1 mg, intramuscular, Q30 Min PRN, Rosa Jade NP insulin glargine (LANTUS, SEMGLEE) 100 unit/mL injection 15 Units, 0.25 Units/kg, subcutaneous, Nightly, Rosa Jade NP, 15 Units at 10/12/232119 insulin lispro (HumaLOG, ADMELOG) 100 unit/mL injection 0-10 Units, 0-10 Units, subcutaneous, TID with meals, Rosa Jade, JARAD, 2 Units at 10/12/23 173 insulin lispro (HumaLOG, ADMELOG) 100 unit/mL injection 0-5 Units, 0-5 Units, subcutaneous, Nightly, Rosa Jade, JARAD, 2 Units at 10/12/232119 insulin lispro (HumaLOG, ADMELOG) 100 unit/mL injection 5 Units, 0.083 Units/kg, subcutaneous, TID with meals, Rosa Jade NP, 5 Units at 10/13/23 09 metoprolol tartrate (LOPRESSOR) immediate release tablet 25 mg, 25 mg, oral, BID, Bev Adames MD, 25 mg at 10/13/23 09 ondansetron (ZOFRAN) injection 4 mg, 4 mg, intravenous, Q6H PRN, Rosa Jade NP ramelteon (ROZEREM) tablet 8 mg, 8 mg, oral, Nightly PRN, Sujatha Montes De Oca NP risperiDONE (RisperDAL) tablet 2 mg, 2 mg, oral, Nightly, Rosa Jade NP, 2 mg at 10/12/232118 Continuous Medications: PRN Medications: acetaminophen dextrose OR dextrose glucagon [facility]: 72 y.o. AAF pt with a PMHx significant for Arthritis, HFpEF, Dementia, Depression, Diabetic neuropathy, HLD, HTN, Osteomyelitis, CKD IV, Schizophrenia, and IDDM presented to the ED with a chief complaint of lower extremity edema. ASSESSMENT/PLAN: All diagnoses were present on admission unless otherwise stated. Principal Problem: --Acute on chronic diastolic heart failure with Bilateral lower extremity edema -EF 65%, moderate pulmonary hypertension, mild tricuspid regurg by TTE November 2022 -volume overload likely secondary to advanced CKD -diuretics stopped outpatient due to worsening renal function Consulted Cardiology and Nephrology IV Lasix 40 mg b.i.d. on hold due to rising Cr Edema now resolved Continue Jerzy hose Continue daily weights, sodium restricted diet, fluid restriction Active problems: --STEFANO on CKD 4: BUN 54, creatinine 4.09, GFR 11 -baseline CKD 4 with a creatinine about 2.12 2.4 with advancement of disease since June, last check creatinine 3.6, BUN 48, GFR 13 in July 2023 -Consulted nephrology, following, managing diuresis -renal diet, fluid restriction -monitor electrolytes Worsening BUN/Cr Lasix is on hold eGFR 8 UO? Will avoid nephrotoxic agents and hypotension. Will follow Cr trend closely --Uncontrolled insulin-dependent type 2 diabetes with hyperglycemia and Diabetic neuropathy basal/bolus/SSI, a.c. and HS glucose checks, consistent carb diet not currently on gabapentin, likely secondary to advanced CKD BS 120-130 --Hypertension, uncontrolled Switched amlodipine to BB due to edema Now under fair control Monitor closely --Anemia of chronic CKD stable trend, no evidence of acute blood loss, monitor continue ferrous sulfate at home dose --GERD continue famotidine --HLD continue atorvastatin at home dose --Schizoaffective disorder/Dementia, Depression -continue risperidone, benztropine at home dose --Chronic NAGMA: From CKD . Bicarb trending down. Will start PO Sodium bicarbonate Will monitor closely --Hyperphosphotemia:Sec to CKD Still rising. --AMS with confusion, incoherent, slurred speech 10/08: CT Head showed no acute intracranial findings UA neg CXR with mild PVC. Afebrile. No leukocytosis 10/09 Required Zyprexa. For agitation Likely sec to intercurrent illness superimposed on a dementia of the Alzheimer's type. Now AAO x 2 better than before Consulted Neurology, and Psychiatry Continue 1:1 sitter Decreased Risperdal to 1mg qhs. Added Olanzapine 2.5mg po or IM PRN psychosis or agitation Recommended to decrease Cogentin dose as this may increase confusion. Will decrease to 1.5 mg qday. --Hypocalcemia: Corrected calcium normal DVT Prophylaxis with SQ Lovenox Code status: Full code D/W RN Medical Decision Making complexity: Moderate Discharge disposition:Home when ready Bev Adames MD 10/13/2023 9:29 AM [facility] [place], [place], Hospitalist * Maddie Ibanez BSW - 10/12/2023 8:03 PM CDT Behavioral Health Integration (BHI) Navigator Note Navigator-Aware of consult. [facility] will be assigned when available. DIDI Amezcua Behavioral Health Navigator * Ria Borden PTA - 10/12/2023 2:58 PM CDT Physical Therapy PT PROGRESS NOTE PATIENT'S NAME:Sixto Chakraborty :1950 AGE:72 y.o. ROOM:[place] [address] Past Medical History: Diagnosis Date Anemia Arthritis [...] toe amp/ foot debridement/ Dr. Anat Pelayo Patient Active Problem List Diagnosis Diabetic neuropathy ([facility]) Type 2 diabetes mellitus with diabetic neuropathy, with long-term current use of insulin ([facility]) Primary hypertension Amputation of toe of right foot ([facility]) ([facility]) Iron deficiency anemia Gastroesophageal reflux disease without esophagitis Mixed hyperlipidemia Schizoaffective disorder, bipolar type ([facility]) ([facility]) 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 2 diabetes mellitus ([facility]) ([facility]) Encounter for Medicare annual wellness exam Late onset Alzheimer's dementia without behavioral disturbance ([facility]) Volume overload Anemia Toe necrosis ([facility]) ([facility]) Physical deconditioning Left leg DVT ([facility]) Pulmonary nodule Retention of urine, unspecified Unspecified osteoarthritis, unspecified site Unsteadiness on feet Weakness Parkinsonism ([facility]) Wheezing Anemia in stage 4 chronic kidney disease ([facility]) Osteomyelitis of great toe of right foot ([facility]) ([facility]) Abnormal urinalysis Acute kidney injury superimposed on CKD (HCC) Acute on chronic diastolic congestive heart failure ([facility]) ([facility]) Bibasilar consolidations Movement disorder Shortness of breath GI bleed Bandemia Leg swelling Diabetes mellitus with hyperglycemia ([facility]) ([facility]) Dyslipidemia Alzheimer's dementia ([facility]) TIME IN: 14:58 TIME OUT: 15:25 SUBJECTIVE Patient stated I'm doing good. MENTAL STATUS/ORIENTATION: Alert and oriented x4 PAIN: Pre-therapy pain level: 0/10 Pain location: n/a Pain intervention: n/a Post-therapy pain level/response to intervention: 0/10 OBJECTIVE PRECAUTIONS: fall, bed / chair alarm, and sitter APPEARANCE/POSTURE:Patient sitting in b/s chair w/chair alarm in place and activated sitter in room MOBILITY DOCUMENTATION: Bed Mobility/Transfers: Bed mobility- n/a Transfers- using ww sit to/from stand w/SBA Gait: Patient ambulated using ww 250'x2 w/slow steady lanny w/SBA APPEARANCE/POSTURE (end of session): Patient sitting in b/s chair w/chair alarm in place and activated with sitter in room EDUCATION:functional transfer training and gait training RESPONSE TO EDUCATION: needs reinforcement and verbalizes understanding ASSESSMENT Activity tolerance/response to P.T.: Patient tolerated therapy w/o complaints Barriers to learning: Physical Barriers to discharge: Confusion and Decreased endurance Patient continues progressing toward previously set goals which remain appropriate at this time. PLAN PT Discharge Recommendations this date: PT Recommendation/Plan: Home with family, Home with 24 hour supervision, Home Health PT Patient at high risk for: Falls, Readmission, Injury due to decreased ability to care for self, Injury at home as patient has not returned to prior level of function, Injury due to impaired cognition, Improper use of DME, Injury due to reduced functional status, Injury due to balance deficits, Prolonged dependence for self care tasks PT Frequency during current admission: 3-5x/wk CARE PLAN Multi-Disciplinary Problems (from Physical Therapy) Active Problems Problem: PT Misc Start Date: 10/08/23 Goal Start Date Expected End Date End Date PT STG - Patient will ambulate 100 ft x 2 with a w/w with mod indep. 10/08/23 10/15/23 -- Progressing towards goal Goal Start Date Expected End Date End Date PT STG - Patient will perform sit to/from stand with a w/w with mod indep. 10/08/23 10/15/23 -- Progressing towards goal Goal Start Date Expected End Date End Date PT STG - Patient will tolerate assessment of 1-step on one occasion. 10/08/23 10/15/23 -- Progressing towards goal Goal Start Date Expected End Date End Date PT STG - Patient will perform HEP mod indep. 10/08/23 10/15/23 -- Progressing towards goal If this is the last note, please consider this the discharge summary. Cosigned by Sussy Valera PT at 10/12/2023 4:48 PM CDT * Eugenio Campbell PTA - 10/12/2023 1:55 PM CDT Physical Therapy Floor just received lunch trays. Requested to come back later in the day. Will attempt as schedule allows. Cosigned by Daisy Glasgow PT at 10/12/2023 3:07 PM CDT * Jimbo Strauss MD - 10/12/2023 1:07 PM CDT Nephrology Daily Progress CSN# [id number] [id number] Phone#: [phone] #: 1950 Subjective Chief complaint of Interval History: confused, needs a sitter Objective Vitals: 24hr Min/Max: Temp Min: 36.5 ??C (97.7 ??F) Max: 36.8 ??C (98.3 ??F) Pulse Min: 56 Max: 76 BP Min: 110/61 Max: 149/51 Resp Min: 11 Max: 18 SpO2 Min: 97 % Max: 100 % No intake or output data in the 24 hours ending 10/15/23 1307 Wt Readings from Last 3 Encounters: 10/07/23 64.5 kg (142 lb 1.6 oz) 09/03/23 58.5 kg (129 lb) 08/03/23 58.2 kg (128 lb 6.4 oz) Temp Av.7 ??C (98 ??F) Min: 36.5 ??C (97.7 ??F) Max: 36.8 ??C (98.3 ??F) BP Min: 110/61 Max: 149/51 Pulse Av.6 Min: 56 Max: 76 Resp Av.4 Min: 11 Max: 18 SpO2 Av.7 % Min: 97 % Max: 100 % Most Recent: Vitals: 10/15/23 1253 BP: 145/68 Pulse: 61 Resp: 18 Temp: 36.6 ??C (97.8 ??F) SpO2: 98% No intake/output data recorded. No intake/output data recorded. Current Facility-Administered Medications Medication Dose Route Frequency Last Rate Last Admin acetaminophen (TYLENOL) tablet 650 mg 650 mg oral Q6H PRN 650 mg at 10/12/23 1111 amLODIPine (NORVASC) tablet 10 mg 10 mg oral Daily 10 mg at 10/15/23 1259 atorvastatin (LIPITOR) tablet 20 mg 20 mg oral Nightly 20 mg at 10/14/232234 benztropine (COGENTIN) tablet 1.5 mg 1.5 mg oral Nightly 1.5 mg at 10/14/232234 dextrose oral liquid liquid 15 g 15 g oral Q15 Min PRN Or dextrose (D10W) 10% bolus 250 mL 250 mL intravenous Q15 Min PRN enoxaparin (LOVENOX) syringe 30 mg 30 mg subcutaneous Daily-2100 30 mg at 10/14/232235 famotidine (PEPCID) tablet 10 mg 10 mg oral Daily 10 mg at 10/15/23 125 ferrous sulfate delayed release tablet 65 mg of elemental iron 65 mg of elemental iron oral BID 65 mg of elemental iron at 10/15/23 1259 fluticasone propionate (FLONASE) 50 mcg/actuation nasal spray 2 spray 2 spray each nostril Daily 2 spray at 10/15/23 1301 [Held by Provider] furosemide (LASIX) 10 mg/mL injection 40 mg 40 mg intravenous BID DIURETIC 40 mgat 10/09/23 180 glucagon injection 1 mg 1 mg intramuscular Q30 Min PRN insulin glargine (LANTUS, SEMGLEE) 100 unit/mL injection 15 Units 0.25 Units/kg subcutaneous Nightly 15 Units at 10/14/232240 insulin lispro (HumaLOG, ADMELOG) 100 unit/mL injection 0-10 Units 0-10 Units subcutaneous TID withmeals 2 Units at 10/14/231812 insulin lispro (HumaLOG, ADMELOG) 100 unit/mL injection 0-5 Units 0-5 Units subcutaneous Nightly 2 Units at 10/12/232119 insulin lispro (HumaLOG, ADMELOG) 100 unit/mL injection 5 Units 0.083 Units/kg subcutaneous TID with meals 5 Units at 10/14/231812 metoprolol tartrate (LOPRESSOR) immediate release tablet 25 mg 25 mg oral BID 25 mg at 10/15/23 1259 OLANZapine (ZyPREXA) 2.5 mg in sterile water 0.5 mL (5 mg/mL) syringe 2.5 mg intramuscular Q12H PRN OLANZapine (ZyPREXA) tablet 2.5 mg 2.5 mg oral BID PRN ondansetron (ZOFRAN) injection 4 mg 4 mg intravenous Q6H PRN ramelteon (ROZEREM) tablet 8 mg 8 mg oral Nightly PRN 8 mg at 10/13/232252 risperiDONE (RisperDAL) tablet 1 mg 1 mg oral Nightly 1 mg at 10/14/23 2235 Continuous Medications Medication Dose Last Rate Physical Exam: General Appearance: Alert, cooperative, confused Head: Normocephalic, without obvious abnormality, atraumatic Eyes: PERRL, conjunctiva/corneas clear, EOM's intact, both eyes, anicteric Neck: Supple, symmetrical, trachea midline, no adenopathy; thyroid: No enlargement/tenderness/nodules; no carotid bruits, No JVD Lungs: Decreased breath sounds bilaterally Cardiovascular: Regular rate and rhythm, S1 and S2 normal, no murmur, rub or gallop Abdomen: Soft, non-tender, bowel sounds active all four quadrants, non-distended Extremities: Extremities normal, no LE edema Skin: Skin color, texture, turgor normal, no rashes, lesions or bruising Neurologic: Alert & oriented person, difficult time with orientation questions Psychosocial: Normal affect and mood Dialysis Access Exam: Lab/Radiology/Diagnostic Review: Recent Labs Lab Units 10/15/23 1255 10/15/23 0650 10/14/23 0747 10/14/23 0613 10/13/23 0742 10/13/23 0620 SODIUM mmol/L -- 140 -- 141 -- 141 POTASSIUM PLASMA mmol/L -- 4.6 -- 4.8 -- 4.4 CHLORIDE mmol/L -- 110 -- 111* -- 110 CO2 mmol/L -- 19* -- 19* -- 19* BUN SERUM mg/dL -- 88* -- 78* -- 78* CREATININE mg/dL -- 5.44* -- 5.09* -- 5.41* [id number] mL/min/1.73 m2 -- 8* -- 8* -- 8* GLUCOSE mg/dL -- 161 -- 227* -- 137 POC GLUCOSE MONITOR mg/dL 104 -- < > -- < > -- CALCIUM mg/dL -- 8.5 -- 8.3* -- 8.1* ALBUMIN g/dL -- 2.8* -- 2.7* -- 2.6* PHOSPHORUS PLASMA mg/dL -- 6.2* -- 5.5* -- 6.2* < > = values in this interval not displayed. Additional Labs: Recent Labs Lab Units 10/10/23 1808 WBC K/cumm 8.9 HEMOGLOBIN g/dL 9.6* HEMATOCRIT % 29.6* PLATELETS K/cumm 322 NEUTROS PCT % 71.5 LYMPHS PCT % 20.0 MONOS PCT % 6.4 EOS PCT % 1.5 )Assessment/Plan 1. chronic kidney disease: Due to diabetes and hypertension. Stage IV. 2. Hypertension: Adjust blood pressure medicines as needed 3. Edema: Mostly due to pulmonary hypertension and chronic kidney disease. Ongoing diuresis. Expectsome rising creatinine with diuresis. As off 10/11/2023 edema is better. Diuretics on hold 4. Metabolic acidosis: Due to renal failure. If it goes any lower will need supplementation. DICTATION DISCLAIMER: This note is transcribed using the Ztail direct voice recognition system without human dust control engineer. In an effort to expedite patient care, this note has not been adjusted for typographical, grammatical, and syntax by a trained medical equipment sales. Portions of this note have been copied from the medical record, but edited appropriately to accurately reflect the patient's current clinical state. Jimbo Strauss Office/exchange: [phone] * William Velasquez MD - 10/12/2023 11:25 AM CDT Daily Progress [facility] Cardiology Subjective: No acute events overnight. Further up trending creatinine noted, no urine output has been recorded OBJECTIVE: Past Medical History: Diagnosis Date Anemia Arthritis CHF (congestive heart failure) (CMS/HCC) (HCC) Dementia (HCC) Depression Diabetic neuropathy (HCC) GERD (gastroesophageal reflux disease) HL (hearing loss) Hyperlipidemia Hypertension Movement disorder Osteomyelitis (HCC) Renal disorder Schizophrenia (HCC) Type 2 diabetes mellitus (HCC) Family History Problem Relation Age of Onset Diabetes Mother Heart disease Mother Kidney disease Mother Stomach cancer Father Alcohol abuse Father Diabetes Sister Diabetes Sister Diabetes Brother Scheduled Medications Medication Dose Route Frequency amLODIPine (NORVASC) tablet 10 mg 10 mg oral Daily atorvastatin (LIPITOR) tablet 20 mg 20 mg oral Nightly benztropine (COGENTIN) tablet 1.5 mg 1.5 mg oral BID enoxaparin (LOVENOX) syringe 30 mg 30 mg subcutaneous Daily-2100 famotidine (PEPCID) tablet 10 mg 10 mg oral Daily ferrous sulfate delayed release tablet 65 mg of elemental iron 65 mg of elemental iron oral BID fluticasone propionate (FLONASE) 50 mcg/actuation nasal spray 2 spray 2 spray each nostril Daily [Held by Provider] furosemide (LASIX) 10 mg/mL injection 40 mg 40 mg intravenous BID DIURETIC insulin glargine (LANTUS, SEMGLEE) 100 unit/mL injection 15 Units 0.25 Units/kg subcutaneous Nightly insulin lispro (HumaLOG, ADMELOG) 100 unit/mL injection 0-10 Units 0-10 Units subcutaneous TID withmeals insulin lispro (HumaLOG, ADMELOG) 100 unit/mL injection 0-5 Units 0-5 Units subcutaneous Nightly insulin lispro (HumaLOG, ADMELOG) 100 unit/mL injection 5 Units 0.083 Units/kg subcutaneous TID with meals metoprolol tartrate (LOPRESSOR) immediate release tablet 25 mg 25 mg oral BID risperiDONE (RisperDAL) tablet 2 mg 2 mg oral Nightly Exam: Gen: Comfortable, NAD CVS: RRR, S1, S2 present, systolic murmur GI: Soft Non tender Chest: Air entry reduced CTAB Psych: Appropriate mood and affect Neuro: Alert, oriented, No deficits. Recent Labs Lab Units 10/10/23 1808 10/08/23 1155 10/06/23 2225 WBC K/cumm 8.9 8.2 9.6 HEMOGLOBIN g/dL 9.6* 8.9* 9.2* HEMATOCRIT % 29.6* 29.0* 29.1* PLATELETS K/cumm 322 311 280 Recent Labs Lab Units 10/12/23 0815 10/12/23 0656 10/12/23 0244 10/11/23 2158 10/11/23 1704 10/11/23 0720 10/11/23 0443 10/10/23 0744 10/10/23 0501 10/09/23 0744 10/09/23 0714 10/08/23 1537 10/08/23 1336 10/08/23 1155 10/07/23 0917 10/06/23 2225 SODIUM mmol/L -- 143 -- -- -- -- 141 -- 141 -- 144 -- 141 144 -- 139 POTASSIUM PLASMA mmol/L -- 4.0 -- -- -- -- 3.5 -- 3.9 -- 4.1 -- 4.1 3.9 -- 4.4 CHLORIDE mmol/L -- 111* -- -- -- -- 109 -- 106 -- 110 -- 106 109 -- 108 CO2 mmol/L -- 21* -- -- -- -- 22 -- 20* -- 19* -- 21* 21* -- 18* ANIONGAP mmol/L -- 11 -- -- -- -- 10 -- 15 -- 15 -- 14 14 -- 13 GLUCOSE mg/dL -- 108 -- -- -- -- 78 -- 78 -- 90 -- 216* 200* -- 285* POC GLUCOSE MONITOR mg/dL 111 -- 149 131 182 < > -- < > -- < > -- < > -- --< > -- BUN SERUM mg/dL -- 74* -- -- -- -- 65* -- 64* -- 59* -- 55* 52* -- 54* CREATININE mg/dL -- 5.33* -- -- -- -- 4.55* -- 4.68* -- 4.59* -- 4.46* 4.42* -- 4.09* CALCIUM mg/dL -- 8.0* -- -- -- -- 8.3* -- 8.4* -- 8.2* -- 8.5 8.3* -- 8.0* ALBUMIN g/dL -- 2.6* -- -- -- -- 2.8* -- 3.0* -- 2.7* -- -- 3.2* -- 3.0* ALK PHOS Units/L -- -- -- -- -- -- -- -- -- -- -- -- -- 139* -- 154* ALT Units/L -- -- -- -- -- -- -- -- -- -- -- -- -- 9 -- 12 AST Units/L -- -- -- -- -- -- -- -- -- -- -- -- -- 15 -- 26 BILIRUBIN TOTAL mg/dL -- -- -- -- -- -- -- -- -- -- -- -- -- 0.2 -- 0.2 < > = values in this interval not displayed. Intake/Output Summary (Last 24 hours) at 10/12/2023 1125 Last data filed at 10/11/2023 1755 Gross per 24 hour Intake 700 ml Output -- Net 700 ml Vitals: 10/11/23 1538 10/11/23199910/12/23 0242 10/12/23 0700 BP: 138/56 117/56 120/69 147/68 BP Location: Left arm Right arm Right arm Patient Position: Lying Lying Lying Pulse: 66 68 56 58 Resp: 20 18 16 16 Temp: 36.7 ??C (98.1 ??F) 37.2 ??C (98.9 ??F) 36.6 ??C (97.8 ??F) 36.9 ??C (98.5 ??F) TempSrc: Oral Oral Oral SpO2: 98% 97% 97% 98% Weight: Height: ASSESSMENT/PLAN: Patient Active Problem List Diagnosis Diabetic neuropathy ([facility]) Type 2 diabetes mellitus with diabetic neuropathy, with long-term current use of insulin ([facility]) Primary hypertension Amputation of toe of right foot ([facility]) ([facility]) Iron deficiency anemia Gastroesophageal reflux disease without esophagitis Mixed hyperlipidemia Schizoaffective disorder, bipolar type ([facility]) ([facility]) 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 2 diabetes mellitus ([facility]) ([facility]) Encounter for Medicare annual wellness exam Late onset Alzheimer's dementia without behavioral disturbance ([facility]) Volume overload Anemia Toe necrosis ([facility]) ([facility]) Physical deconditioning Left leg DVT ([facility]) Pulmonary nodule Retention of urine, unspecified Unspecified osteoarthritis, unspecified site Unsteadiness on feet Weakness Parkinsonism ([facility]) Wheezing Anemia in stage 4 chronic kidney disease ([facility]) Osteomyelitis of great toe of right foot ([facility]) ([facility]) Abnormal urinalysis Acute kidney injury superimposed on CKD ([facility]) Acute on chronic diastolic congestive heart failure ([facility]) ([facility]) Bibasilar consolidations Movement disorder Shortness of breath GI bleed Bandemia Leg swelling Diabetes mellitus with hyperglycemia (CMS/HCC) (HCC) Dyslipidemia Volume overload - due to CKD stage 4 on IV diuresis as per Nephrology currently on IV Lasix urine output not recorded will order accurate input output CKD stage IV -nephrology is managing seen by Dr. العلي Acute on chronic diastolic heart failure - normal LV function on recent echocardiogram - moderate pulmonary hypertension likely due to left-sided heart failure Elevated troponin due to renal dysfunction - does not represent ACS - nonischemic MPI recently Essential hypertension -BP stable Diabetes mellitus type 2 Iron deficiency anemia - hemoglobin stable William Velasquez MD, FACC, [facility], R[facility]I [facility] [phone] 10/12/2023 11:25 AM * Bev Adames MD - 10/12/2023 8:51 AM CDT DAILY PROGRESS NOTE C/C:Swollen legs Interval History: less confused today per sitter SUBJECTIVE: Complaints: None ROS: OBJECTIVE: Vitals: Temp (24hrs), Av.8 ??C (98.2 ??F), Min:36.4 ??C (97.5 ??F), Max:37.2 ??C (98.9 ??F) Vitals: 10/11/23 1538 10/11/23 2000 10/12/23 0242 10/12/23 0700 BP: 138/56 117/56 120/69 147/68 BP Location: Left arm Right arm Right arm Patient Position: Lying Lying Lying Pulse: 66 68 56 58 Resp: 20 18 16 16 Temp: 36.7 ??C (98.1 ??F) 37.2 ??C (98.9 ??F) 36.6 ??C (97.8 ??F) 36.9 ??C (98.5 ??F) TempSrc: Oral Oral Oral SpO2: 98% 97% 97% 98% Weight: Height: LDA: I/O: Intake/Output Summary (Last 24 hours) at 10/12/2023 0851 Last data filed at 10/11/2023 0822 Gross per 24 hour Intake 700 ml Output -- Net 700 ml Physical Exam General:Up in chair, eating breakfast,on RA,NAD SHEENT:Skin warm,dry,no rashes. No icterus,no cyanosis,no pallor Neck:Supple Respi:Slightly diminished breath sounds silverio Cardio:RRR,no murmur GI:Abdomen soft,bowel sounds +,non tender,not distended. Extre: No edema ,no cyanosis,no pallor Neuro:AAO x2 -3 Psych:No agitation Laboratory: Recent Results (from the past 24 hour(s)) POCT glucose Collection Time: 10/11/23 12:00 PM Result Value Ref Range Glucose, POC 124 70 - 199 mg/dL POCT glucose Collection Time: 10/11/23 5:04 PM Result Value Ref Range Glucose, POC 182 70 - 199 mg/dL POCT glucose Collection Time: 10/11/23 9:58 PM Result Value Ref Range Glucose, POC 131 70 - 199 mg/dL POCT glucose Collection Time: 10/12/23 2:44 AM Result Value Ref Range Glucose, POC 149 70 - 199 mg/dL Renal function panel Collection Time: 10/12/23 6:56 AM Result Value Ref Range Sodium 143 135 - 145 mmol/L Potassium, pl 4.0 3.3 - 4.9 mmol/L Chloride 111 (H) 97 - 110 mmol/L CO2 21 (L) 22 - 32 mmol/L Anion gap 11 2 - 15 mmol/L BUN 74 (H) 6 - 25 mg/dL Creatinine 5.33 (H) 0.60 - 1.10 mg/dL Glucose 108 70 - 199 mg/dL Calcium 8.0 (L) 8.5 - 10.3 mg/dL Phosphorus, pl 5.8 (H) 2.3 - 4.5 mg/dL Albumin 2.6 (L) 3.5 - 5.0 g/dL eGFR Collection Time: 10/12/23 6:56 AM Result Value Ref Range eGFR 8 (L) >=60 mL/min/1.73 m2 POCT glucose Collection Time: 10/12/23 8:15 AM Result Value Ref Range Glucose, POC 111 70 - 199 mg/dL Radiology: Scheduled Medications: amLODIPine, 10 mg, oral, Daily atorvastatin, 20 mg, oral, Nightly benztropine, 1.5 mg, oral, BID enoxaparin, 30 mg, subcutaneous, Daily-2099 famotidine, 10 mg, oral, Daily ferrous sulfate, 65 mg of elemental iron, oral, BID fluticasone propionate, 2 spray, each nostril, Daily [Held by Provider] furosemide, 40 mg, intravenous, BID DIURETIC insulin glargine, 0.25 Units/kg, subcutaneous, Nightly insulin lispro, 0-10 Units, subcutaneous, TID with meals insulin lispro, 0-5 Units, subcutaneous, Nightly insulin lispro, 0.083 Units/kg, subcutaneous, TID with meals metoprolol tartrate, 25 mg, oral, BID risperiDONE, 2 mg, oral, Nightly Current Facility-Administered Medications: acetaminophen (TYLENOL) tablet 650 mg, 650 mg, oral, Q6H PRN, Rosa Jade NP, 650 mg at 10/08/232034 amLODIPine (NORVASC) tablet 10 mg, 10 mg, oral, Daily, Wally Plummer MD, 10 mg at 10/11/23927 atorvastatin (LIPITOR) tablet 20 mg, 20 mg, oral, Nightly, Rosa Jade NP, 20 mg at 10/11/232150 benztropine (COGENTIN) tablet 1.5 mg, 1.5 mg, oral, BID, Rosa Jade NP, 1.5 mg at 10/11/232150 dextrose oral liquid liquid 15 g, 15 g, oral, Q15 Min PRN OR dextrose (D10W) 10% bolus 250 mL, 250 mL, intravenous, Q15 Min PRN, Rosa Jade NP enoxaparin (LOVENOX) syringe 30 mg, 30 mg, subcutaneous, Daily-2099, Guera Guillaume MD, 30 mg at 10/11/232151 famotidine (PEPCID) tablet 10 mg, 10 mg, oral, Daily, Rosa Jade NP, 10 mg at 10/11/23927 ferrous sulfate delayed release tablet 65 mg of elemental iron, 65 mg of elemental iron, oral, BID,Rosa Jade NP, 65 mg of elemental iron at 10/11/232151 fluticasone propionate (FLONASE) 50 mcg/actuation nasal spray 2 spray, 2 spray, each nostril, Daily, Rosa Jade, JARAD, 2 spray at 10/11/23 0931 [Held by Provider] furosemide (LASIX) 10 mg/mL injection 40 mg, 40 mg, intravenous, BID DIURETIC, Rosa Jade, JARAD, 40 mg at 10/09/231803 glucagon injection 1 mg, 1 mg, intramuscular, Q30 Min PRN, Rosa Jade NP insulin glargine (LANTUS, SEMGLEE) 100 unit/mL injection 15 Units, 0.25 Units/kg, subcutaneous, Nightly, Rosa Jade, JARAD, 15 Units at 10/11/232157 insulin lispro (HumaLOG, ADMELOG) 100 unit/mL injection 0-10 Units, 0-10 Units, subcutaneous, TID with meals, Rosa Jade NP, 2 Units at 10/11/231826 insulin lispro (HumaLOG, ADMELOG) 100 unit/mL injection 0-5 Units, 0-5 Units, subcutaneous, Nightly, Rosa Jade, JARAD, 1 Units at 10/10/232025 insulin lispro (HumaLOG, ADMELOG) 100 unit/mL injection 5 Units, 0.083 Units/kg, subcutaneous, TID with meals, Rosa Jade NP, 5 Units at 10/11/231826 metoprolol tartrate (LOPRESSOR) immediate release tablet 25 mg, 25 mg, oral, BID, Bev Adames MD, 25 mg at 10/11/232150 ondansetron (ZOFRAN) injection 4 mg, 4 mg, intravenous, Q6H PRN, Rosa Jade NP ramelteon (ROZEREM) tablet 8 mg, 8 mg, oral, Nightly PRN, Sujatha Montes De Oca NP risperiDONE (RisperDAL) tablet 2 mg, 2 mg, oral, Nightly, Rosa Jade, JARAD, 2 mg at 10/11/232150 Continuous Medications: PRN Medications: acetaminophen dextrose OR dextrose glucagon ondansetron [facility] course: 72 y.o. AAF pt with a PMHx significant for Arthritis, HFpEF, Dementia, Depression, Diabetic neuropathy, HLD, HTN, Osteomyelitis, CKD IV, Schizophrenia, and IDDM presented to the ED with a chief complaint of lower extremity edema. ASSESSMENT/PLAN: All diagnoses were present on admission unless otherwise stated. Principal Problem: --Acute on chronic diastolic heart failure with Bilateral lower extremity edema -EF 65%, moderate pulmonary hypertension, mild tricuspid regurg by TTE November 2022 -volume overload likely secondary to advanced CKD -diuretics stopped outpatient due to worsening renal function Consulted Cardiology and Nephrology IV Lasix 40 mg b.i.d. on hold due to rising Cr Edema now resolved Continue Jerzy hose Continue daily weights, sodium restricted diet, fluid restriction Active problems: --STEFANO on CKD 4: BUN 54, creatinine 4.09, GFR 11 -baseline CKD 4 with a creatinine about 2.12 2.4 with advancement of disease since June, last check creatinine 3.6, BUN 48, GFR 13 in July 2023 -Consulted nephrology, following, managing diuresis -renal diet, fluid restriction -monitor electrolytes Worsening Cr Lasix is on hold eGFR 8 UO? Will avoid nephrotoxic agents and hypotension. Will follow Cr trend closely --Uncontrolled insulin-dependent type 2 diabetes with hyperglycemia and Diabetic neuropathy basal/bolus/SSI, a.c. and HS glucose checks, consistent carb diet not currently on gabapentin, likely secondary to advanced CKD BS 100-210 --Hypertension, uncontrolled Switched amlodipine to BB due to edema Now under fair control Monitor closely --Anemia of chronic CKD stable trend, no evidence of acute blood loss, monitor continue ferrous sulfate at home dose --GERD continue famotidine --HLD continue atorvastatin at home dose --Schizoaffective disorder/Dementia, Depression -continue risperidone, benztropine at home dose --Chronic NAGMA: From CKD . Bicarb trending down. Will monitor closely --Hyperphosphotemia:Sec to CKD Rising. --AMS with confusion, incoherent, slurred speech 10/08: CT Head showed no acute intracranial findings UA neg CXR with mild PVC. Afebrile. No leukocytosis 10/09 Required Zyprexa. For agitation Likely sec to Delirium Now AAO x 2-3, better than yesterday Consulted Neurology,await input --Hypocalcemia: Corrected calcium normal DVT Prophylaxis with SQ Lovenox Code status: Full code D/W RN Medical Decision Making complexity: Moderate Discharge disposition:Home when ready Bev Adames MD 10/12/2023 8:51 AM ELLIOTCM[facility], Hospitalist * Jimbo Strauss MD - 10/11/2023 10:18 PM CDT Nephrology Daily Progress [facility]# [id number] SS#: [id number] Phone#: [phone] #: [id number] Subjective Chief complaint of Interval History: confused, needs a siter Objective Vitals: 24hr Min/Max: Temp Min: 36.4 ??C (97.5 ??F) Max: 37.2 ??C (98.9 ??F) Pulse Min: 61 Max: 80 BP Min: 117/56 Max: 153/62 Resp Min: 16 Max: 20 SpO2 Min: 96 % Max: 100 % Intake/Output Summary (Last 24 hours) at 10/11/20238 Last data filed at 10/11/2023 1755 Gross per 24 hour Intake 700 ml Output -- Net 700 ml Wt Readings from Last 3 Encounters: 10/07/23 64.5 kg (142 lb 1.6 oz) 09/03/23 58.5 kg (129 lb) 08/03/23 58.2 kg (128 lb 6.4 oz) Temp Av.7 ??C (98.1 ??F) Min: 36.4 ??C (97.5 ??F) Max: 37.2 ??C (98.9 ??F) BP Min: 117/56 Max: 153/62 Pulse Av.6 Min: 61 Max: 80 Resp Av Min: 16 Max: 20 SpO2 Av.8 % Min: 96 % Max: 100 % Most Recent: Vitals: 10/11/231999 BP: 117/56 Pulse: 68 Resp: 18 Temp: 37.2 ??C (98.9 ??F) SpO2: 97% I/O last 2 completed shifts: In: 700 [P.O.:700] Out: - No intake/output data recorded. Current Facility-Administered Medications Medication Dose Route Frequency Last Rate Last Admin acetaminophen (TYLENOL) tablet 650 mg 650 mg oral Q6H PRN 650 mg at 10/08/232034 amLODIPine (NORVASC) tablet 10 mg 10 mg oral Daily 10 mg at 10/11/23927 atorvastatin (LIPITOR) tablet 20 mg 20 mg oral Nightly 20 mg at 10/11/232150 benztropine (COGENTIN) tablet 1.5 mg 1.5 mg oral BID 1.5 mg at 10/11/232150 dextrose oral liquid liquid 15 g 15 g oral Q15 Min PRN Or dextrose (D10W) 10% bolus 250 mL 250 mL intravenous Q15 Min PRN enoxaparin (LOVENOX) syringe 30 mg 30 mg subcutaneous Daily-2100 30 mg at 10/11/232151 famotidine (PEPCID) tablet 10 mg 10 mg oral Daily 10 mg at 10/11/23927 ferrous sulfate delayed release tablet 65 mg of elemental iron 65 mg of elemental iron oral BID 65 mg of elemental iron at 10/11/232151 fluticasone propionate (FLONASE) 50 mcg/actuation nasal spray 2 spray 2 spray each nostril Daily 2 spray at 10/11/23 0931 [Held by Provider] furosemide (LASIX) 10 mg/mL injection 40 mg 40 mg intravenous BID DIURETIC 40 mgat 10/09/231803 glucagon injection 1 mg 1 mg intramuscular Q30 Min PRN insulin glargine (LANTUS, SEMGLEE) 100 unit/mL injection 15 Units 0.25 Units/kg subcutaneous Nightly 15 Units at 10/11/232157 insulin lispro (HumaLOG, ADMELOG) 100 unit/mL injection 0-10 Units 0-10 Units subcutaneous TID withmeals 2 Units at 10/11/231826 insulin lispro (HumaLOG, ADMELOG) 100 unit/mL injection 0-5 Units 0-5 Units subcutaneous Nightly 1 Units at 10/10/232025 insulin lispro (HumaLOG, ADMELOG) 100 unit/mL injection 5 Units 0.083 Units/kg subcutaneous TID with meals 5 Units at 10/11/231826 metoprolol tartrate (LOPRESSOR) immediate release tablet 25 mg 25 mg oral BID 25 mg at 10/11/232150 ondansetron (ZOFRAN) injection 4 mg 4 mg intravenous Q6H PRN ramelteon (ROZEREM) tablet 8 mg 8 mg oral Nightly PRN risperiDONE (RisperDAL) tablet 2 mg 2 mg oral Nightly 2 mg at 10/11/232150 Continuous Medications Medication Dose Last Rate Physical Exam: General Appearance: Alert, cooperative, confused Head: Normocephalic, without obvious abnormality, atraumatic Eyes: PERRL, conjunctiva/corneas clear, EOM's intact, both eyes, anicteric Neck: Supple, symmetrical, trachea midline, no adenopathy; thyroid: No enlargement/tenderness/nodules; no carotid bruits, No JVD Lungs: Decreased breath sounds bilaterally Cardiovascular: Regular rate and rhythm, S1 and S2 normal, no murmur, rub or gallop Abdomen: Soft, non-tender, bowel sounds active all four quadrants, non-distended Extremities: Extremities normal, no LE edema Skin: Skin color, texture, turgor normal, no rashes, lesions or bruising Neurologic: Alert & oriented person, difficult time with orientation questions Psychosocial: Normal affect and mood Dialysis Access Exam: Lab/Radiology/Diagnostic Review: Recent Labs Lab Units 10/11/23 2158 10/11/23 0720 10/11/23 0443 10/10/23 0744 10/10/23 0501 10/09/23 0744 10/09/23 0714 SODIUM mmol/L -- -- 141 -- 141 -- 144 POTASSIUM PLASMA mmol/L -- -- 3.5 -- 3.9 -- 4.1 CHLORIDE mmol/L -- -- 109 -- 106 -- 110 CO2 mmol/L -- -- 22 -- 20* -- 19* BUN SERUM mg/dL -- -- 65* -- 64* -- 59* CREATININE mg/dL -- -- 4.55* -- 4.68* -- 4.59* [id number] mL/min/1.73 m2 -- -- 10* -- 9* -- 10* GLUCOSE mg/dL -- -- 78 -- 78 -- 90 POC GLUCOSE MONITOR mg/dL 131 < > -- < > -- < > -- CALCIUM mg/dL -- -- 8.3* -- 8.4* -- 8.2* ALBUMIN g/dL -- -- 2.8* -- 3.0* -- 2.7* PHOSPHORUS PLASMA mg/dL -- -- 5.5* -- 5.5* -- 5.8* < > = values in this interval not displayed. Additional Labs: Recent Labs Lab Units 10/10/23 1808 10/08/23 1155 10/06/23 2225 WBC K/cumm 8.9 8.2 9.6 HEMOGLOBIN g/dL 9.6* 8.9* 9.2* HEMATOCRIT % 29.6* 29.0* 29.1* PLATELETS K/cumm 322 311 280 NEUTROS PCT % 71.5 65.1 63.8 LYMPHS PCT % 20.0 26.3 26.8 MONOS PCT % 6.4 6.1 6.0 EOS PCT % 1.5 1.9 2.5 )Assessment/Plan 1. chronic kidney disease: Due to diabetes and hypertension. Stage IV. 2. Hypertension: Adjust blood pressure medicines as needed 3. Edema: Mostly due to pulmonary hypertension and chronic kidney disease. Ongoing diuresis. Expectsome rising creatinine with diuresis. As off 10/11/2023 edema is better. Diuretics on hold 4. Metabolic acidosis: Due to renal failure. If it goes any lower will need supplementation. DICTATION DISCLAIMER: This note is transcribed using the Ztail direct voice recognition system without human dust control engineer. In an effort to expedite patient care, this note has not been adjusted for typographical, grammatical, and syntax by a trained medical equipment sales. Portions of this note have been copied from the medical record, but edited appropriately to accurately reflect the patient's current clinical state. Jimbo Strauss Office/exchange: [phone] * Bev Adames MD - 10/11/2023 11:42 AM CDT DAILY PROGRESS NOTE C/C:Swollen legs Interval History: Still confused , required Zyprexa last night for slight agitation. Sleeping more today SUBJECTIVE: Complaints: After waking her up, says no pain or SOB, ROS: OBJECTIVE: Vitals: Temp (24hrs), Av.6 ??C (97.9 ??F), Min:36.4 ??C (97.5 ??F), Max:36.8 ??C (98.3 ??F) Vitals: 10/10/23200310/11/23 0455 10/11/23 0700 10/11/23 1126 BP: 152/59 137/60 153/62 143/59 BP Location: Right arm Right arm Right arm Left arm Patient Position: Lying Lying Sitting Lying Pulse: 84 68 80 61 Resp: Temp: 36.6 ??C (97.9 ??F) 36.6 ??C (97.9 ??F) 36.8 ??C (98.3 ??F) 36.4 ??C (97.5 ??F) TempSrc: Oral Oral Oral Axillary SpO2: 97% 98% 96% 100% Weight: Height: LDA: I/O: No intake or output data in the 24 hours ending 10/11/23 1142 Physical Exam General:Lying in bed, sleeping, arousable,on RA,NAD SHEENT:Skin warm,dry,no rashes. No icterus,no cyanosis,no pallor Neck:Supple Respi:Slightly diminished breath sounds silverio Cardio:RRR,no murmur GI:Abdomen soft,bowel sounds +,non tender,not distended. Extre: 1+edema ankles,no cyanosis,no pallor Neuro: sleeping, arousable Psych:Not agitated now, sleeping Laboratory: Recent Results (from the past 24 hour(s)) POCT glucose Collection Time: 10/10/23 12:30 PM Result Value Ref Range Glucose, POC 128 70 - 199 mg/dL Urinalysis reflex to microscopic and culture Urine, clean voided Collection Time: 10/10/23 3:00 PM Specimen: Urine, clean voided Result Value Ref Range Color, ur Straw Yellow Clarity, ur Clear Clear Specific gravity, ur 1.009 1.003 - 1.030 pH, urine 6.0 Protein, ur ql 3+ (A) Negative Glucose, ur ql 1+ (A) Negative Ketones, ur Negative Negative Bilirubin, ur Negative Negative Blood, ur 1+ (A) Negative Urobilinogen, ur <2.0 <2.0 mg/dL Nitrite, ur Negative Negative Leukocyte esterase, ur Negative Negative UA reflex comment Reflex to microscopic UA will be performed. Urinalysis, microscopic only Collection Time: 10/10/23 3:00 PM Result Value Ref Range WBC, ur 0-5 0 - 5 /HPF RBC, ur 0-2 0 - 2 /HPF Epithelial cells, squamous, ur 1-5 0 - 5 /HPF Culture Reflex Comment Reflex conditions for urine culture (WBC >10) not met. POCT glucose Collection Time: 10/10/23 5:32 PM Result Value Ref Range Glucose, POC 87 70 - 199 mg/dL CBC with auto differential Collection Time: 10/10/23 6:08 PM Result Value Ref Range WBC 8.9 3.8 - 9.9 K/cumm Hgb 9.6 (L) 11.9 - 15.5 g/dL Hct 29.6 (L) 35.6 - 45.5 % Plt 322 150 - 400 K/cumm MPV 10.8 9.1 - 12.3 fL RBC 3.19 (L) 3.90 - 5.20 M/cumm MCV 92.8 81.3 - 96.4 fL MCH 30.1 27.1 - 33.3 pg MCHC 32.4 32.3 - 35.7 g/dL RDW CV 14.5 11.1 - 14.9 % RDW SD 49.1 (H) 35.7 - 48.1 fL NRBC abs 0.00 0.00 - 0.01 K/cumm Differential, auto Collection Time: 10/10/23 6:08 PM Result Value Ref Range Neutrophil abs 6.4 1.5 - 6.5 K/cumm Imm gran abs 0.0 0.0 - 0.1 K/cumm Lymphocyte abs 1.8 0.8 - 3.3 K/cumm Monocyte abs 0.6 0.2 - 0.8 K/cumm Eosinophil abs 0.1 0.0 - 0.5 K/cumm Basophil abs 0.0 0.0 - 0.1 K/cumm Neutrophil pct 71.5 % Imm gran pct 0.3 % Lymphocyte pct 20.0 % Monocyte pct 6.4 % Eosinophil pct 1.5 % Basophil pct 0.3 % POCT glucose Collection Time: 10/10/23 7:49 PM Result Value Ref Range Glucose, POC 155 70 - 199 mg/dL POCT glucose Collection Time: 10/11/23 1:18 AM Result Value Ref Range Glucose, POC 206 (H) 70 - 199 mg/dL Renal function panel Collection Time: 10/11/23 4:43 AM Result Value Ref Range Sodium 141 135 - 145 mmol/L Potassium, pl 3.5 3.3 - 4.9 mmol/L Chloride 109 97 - 110 mmol/L CO2 22 22 - 32 mmol/L Anion gap 10 2 - 15 mmol/L BUN 65 (H) 6 - 25 mg/dL Creatinine 4.55 (H) 0.60 - 1.10 mg/dL Glucose 78 70 - 199 mg/dL Calcium 8.3 (L) 8.5 - 10.3 mg/dL Phosphorus, pl 5.5 (H) 2.3 - 4.5 mg/dL Albumin 2.8 (L) 3.5 - 5.0 g/dL eGFR Collection Time: 10/11/23 4:43 AM Result Value Ref Range eGFR 10 (L) >=60 mL/min/1.73 m2 POCT glucose Collection Time: 10/11/23 7:20 AM Result Value Ref Range Glucose, POC 88 70 - 199 mg/dL Radiology: Scheduled Medications: amLODIPine, 10 mg, oral, Daily atorvastatin, 20 mg, oral, Nightly benztropine, 1.5 mg, oral, BID enoxaparin, 30 mg, subcutaneous, Daily-2100 famotidine, 10 mg, oral, Daily ferrous sulfate, 65 mg of elemental iron, oral, BID fluticasone propionate, 2 spray, each nostril, Daily [Held by Provider] furosemide, 40 mg, intravenous, BID DIURETIC insulin glargine, 0.25 Units/kg, subcutaneous, Nightly insulin lispro, 0-10 Units, subcutaneous, TID with meals insulin lispro, 0-5 Units, subcutaneous, Nightly insulin lispro, 0.083 Units/kg, subcutaneous, TID with meals metoprolol tartrate, 25 mg, oral, BID risperiDONE, 2 mg, oral, Nightly Current Facility-Administered Medications: acetaminophen (TYLENOL) tablet 650 mg, 650 mg, oral, Q6H PRN, Rosa Jade, CLINICAL NURSE LEADER, 650 mg at 10/08/232034 amLODIPine (NORVASC) tablet 10 mg, 10 mg, oral, Daily, Wally Plummer MD, 10 mg at 10/11/23927 atorvastatin (LIPITOR) tablet 20 mg, 20 mg, oral, Nightly, Rosa Jade NP, 20 mg at 10/09/232049 benztropine (COGENTIN) tablet 1.5 mg, 1.5 mg, oral, BID, Rosa Jade NP, 1.5 mg at 10/11/23927 dextrose oral liquid liquid 15 g, 15 g, oral, Q15 Min PRN OR dextrose (D10W) 10% bolus 250 mL, 250 mL, intravenous, Q15 Min PRN, Rosa Jade NP enoxaparin (LOVENOX) syringe 30 mg, 30 mg, subcutaneous, Daily-2099, Flash Guillaume- Flash Guzman MD, 30 mg at 10/10/232025 famotidine (PEPCID) tablet 10 mg, 10 mg, oral, Daily, Rosa Jade NP, 10 mg at 10/11/23927 ferrous sulfate delayed release tablet 65 mg of elemental iron, 65 mg of elemental iron, oral, BID,Rosa Jade NP, 65 mg of elemental iron at 10/11/23928 fluticasone propionate (FLONASE) 50 mcg/actuation nasal spray 2 spray, 2 spray, each nostril, Daily, Rosa Jade NP, 2 spray at 10/11/23930 [Held by Provider] furosemide (LASIX) 10 mg/mL injection 40 mg, 40 mg, intravenous, BID DIURETIC, Rosa Jade NP, 40 mg at 10/09/231803 glucagon injection 1 mg, 1 mg, intramuscular, Q30 Min PRN, Rosa Jade NP insulin glargine (LANTUS, SEMGLEE) 100 unit/mL injection 15 Units, 0.25 Units/kg, subcutaneous, Nightly, Rosa Jade NP, 15 Units at 10/10/232025 insulin lispro (HumaLOG, ADMELOG) 100 unit/mL injection 0-10 Units, 0-10 Units, subcutaneous, TID with meals, Rosa Jade NP, 2 Units at 10/08/23 1722 insulin lispro (HumaLOG, ADMELOG) 100 unit/mL injection 0-5 Units, 0-5 Units, subcutaneous, Nightly, Rosa Jade NP, 1 Units at 10/10/232025 insulin lispro (HumaLOG, ADMELOG) 100 unit/mL injection 5 Units, 0.083 Units/kg, subcutaneous, TID with meals, Rosa Jade NP, 5 Units at 10/10/23 1312 metoprolol tartrate (LOPRESSOR) immediate release tablet 25 mg, 25 mg, oral, BID, Bev Adames MD, 25 mg at 10/11/23 0928 ondansetron (ZOFRAN) injection 4 mg, 4 mg, intravenous, Q6H PRN, Rosa Jade NP ramelteon (ROZEREM) tablet 8 mg, 8 mg, oral, Nightly PRN, Sujatha Montes De Oca NP risperiDONE (RisperDAL) tablet 2 mg, 2 mg, oral, Nightly, Rosa Jade NP, 2 mg at 10/09/232049 Continuous Medications: PRN Medications: acetaminophen dextrose OR dextrose glucagon [facility]: 72 y.o. AAF pt with a PMHx significant for Arthritis, HFpEF, Dementia, Depression, Diabetic neuropathy, HLD, HTN, Osteomyelitis, CKD IV, Schizophrenia, and IDDM presented to the ED with a chief complaint of lower extremity edema. ASSESSMENT/PLAN: All diagnoses were present on admission unless otherwise stated. Principal Problem: --Acute on chronic diastolic heart failure with Bilateral lower extremity edema -EF 65%, moderate pulmonary hypertension, mild tricuspid regurg by TTE November 2022 -volume overload likely secondary to advanced CKD -diuretics stopped outpatient due to worsening renal function Consulted Cardiology and Nephrology IV Lasix 40 mg b.i.d. on hold due to rising Cr Edema continues to improve Continue Jerzy hose Continue daily weights, sodium restricted diet, fluid restriction Active problems: --STEFANO on CKD 4: BUN 54, creatinine 4.09, GFR 11 -baseline CKD 4 with a creatinine about 2.12 2.4 with advancement of disease since June, last check creatinine 3.6, BUN 48, GFR 13 in July 2023 -Consulted nephrology, following, managing diuresis -renal diet, fluid restriction -monitor electrolytes 10/09 Cr homer up to 4.68 Lasix is on hold Now Cr trending down. eGFR 10 Will avoid nephrotoxic agents and hypotension. Will follow Cr trend closely --Uncontrolled insulin-dependent type 2 diabetes with hyperglycemia and Diabetic neuropathy basal/bolus/SSI, a.c. and HS glucose checks, consistent carb diet not currently on gabapentin, likely secondary to advanced CKD BS 70-200 --Hypertension, uncontrolled Switched amlodipine to BB due to edema Now under fair control Monitor closely --Anemia of chronic CKD stable trend, no evidence of acute blood loss, monitor continue ferrous sulfate at home dose --GERD continue famotidine --HLD continue atorvastatin at home dose --Schizoaffective disorder/Dementia, Depression -continue risperidone, benztropine at home dose --Chronic NAGMA: From CKD . Improving now Will monitor closely --Hyperphosphotemia:Sec to CKD Stable. --AMS with confusion, incoherent, slurred speech 10/08: CT Head showed no acute intracranial findings UA neg CXR with mild PVC. Afebrile. No leukocytosis Agitated last night, required Zyprexa. Likely sec to Delirium Will consult Neurology DVT Prophylaxis with SQ Lovenox Code status: Full code D/W RN Medical Decision Making complexity: Moderate Discharge disposition:Home when ready Bev Adames MD 10/11/2023 11:42 AM [facility] – [place], [place], Hospitalist * Wally Plummer MD - 10/11/2023 8:35 AM CDT Cardiology Inpatient Progress Note [facility] SUBJECTIVE: Pt had no acute events overnight. Her confusion has improved. She denies any shortness of breath and any pain OBJECTIVE: Vitals: 10/10/23 1100 10/10/23 2004 10/11/23 0455 10/11/23 0700 BP: 119/96 152/59 137/60 153/62 BP Location: Left arm Right arm Right arm Right arm Patient Position: Lying Lying Sitting Pulse: 98 84 68 80 Resp: 18 20 18 18 Temp: 36.4 ??C (97.5 ??F) 36.6 ??C (97.9 ??F) 36.6 ??C (97.9 ??F) 36.8 ??C (98.3 ??F) TempSrc: Oral Oral Oral Oral SpO2: 98% 97% 98% 96% Weight: Height: General: AOx2, No acute distress. Cardiac: RRR without murmur or gallop. Normal S1 and S2. No JVD. Vascular: Pulses are palpable in all extremities. No carotid bruits. Lungs: Clear to auscultation (B). Abdomen: Soft, NT/ND, +BS Ext: Warm with mild edema. No cyanosis or clubbing. ASSESSMENT/PLAN: Hypervolemia -due to CKD stage 4 on IV diuretics as per Nephrology CKD stage IV -Cr is at 4.55 this am Acute on chronic diastolic heart failure -normal LV function -volume issues related to CKD as noted above Elevated troponin due to renal dysfunction -does not represent ACS -nonischemic MPI on 08/05/22 Essential hypertension -BP is above goal but improved after adding Amlodipine -I will increase Amlodipine to 10mg qday and continue Lopressor Type 2 DM -stable with glycemic management per the primary team Dyslipidemia -stable on Atorvastatin Iron deficiency anemia -Hgb stable ~9 Altered mental status -improved from yesterday -management per the primary team Wally Plummer MD, [facility], [facility] 10/11/2023 8:35 AM * Jimbo Strauss MD - 10/10/2023 3:17 PM CDT Nephrology Daily Progress [facility]# [id number] SS#: [id number] Phone#: [phone] #: [id number] Subjective Chief complaint of Interval History: confused, needs a siter Objective Vitals: 24hr Min/Max: Temp Min: 36.4 ??C (97.5 ??F) Max: 37.2 ??C (98.9 ??F) Pulse Min: 61 Max: 80 BP Min: 117/56 Max: 153/62 Resp Min: 16 Max: 20 SpO2 Min: 96 % Max: 100 % Intake/Output Summary (Last 24 hours) at 10/11/20232216 Last data filed at 10/11/2023 1755 Gross per 24 hour Intake 700 ml Output -- Net 700 ml Wt Readings from Last 3 Encounters: 10/07/23 64.5 kg (142 lb 1.6 oz) 09/03/23 58.5 kg (129 lb) 08/03/23 58.2 kg (128 lb 6.4 oz) Temp Av.7 ??C (98.1 ??F) Min: 36.4 ??C (97.5 ??F) Max: 37.2 ??C (98.9 ??F) BP Min: 117/56 Max: 153/62 Pulse Av.6 Min: 61 Max: 80 Resp Av Min: 16 Max: 20 SpO2 Av.8 % Min: 96 % Max: 100 % Most Recent: Vitals: 10/11/231999 BP: 117/56 Pulse: 68 Resp: 18 Temp: 37.2 ??C (98.9 ??F) SpO2: 97% I/O last 2 completed shifts: In: 700 [P.O.:700] Out: - No intake/output data recorded. Current Facility-Administered Medications Medication Dose Route Frequency Last Rate Last Admin acetaminophen (TYLENOL) tablet 650 mg 650 mg oral Q6H PRN 650 mg at 10/08/232034 amLODIPine (NORVASC) tablet 10 mg 10 mg oral Daily 10 mg at 10/11/23927 atorvastatin (LIPITOR) tablet 20 mg 20 mg oral Nightly 20 mg at 10/11/232150 benztropine (COGENTIN) tablet 1.5 mg 1.5 mg oral BID 1.5 mg at 10/11/232150 dextrose oral liquid liquid 15 g 15 g oral Q15 Min PRN Or dextrose (D10W) 10% bolus 250 mL 250 mL intravenous Q15 Min PRN enoxaparin (LOVENOX) syringe 30 mg 30 mg subcutaneous Daily-2100 30 mg at 10/11/232151 famotidine (PEPCID) tablet 10 mg 10 mg oral Daily 10 mg at 10/11/23 0928 ferrous sulfate delayed release tablet 65 mg of elemental iron 65 mg of elemental iron oral BID 65 mg of elemental iron at 10/11/232151 fluticasone propionate (FLONASE) 50 mcg/actuation nasal spray 2 spray 2 spray each nostril Daily 2 spray at 10/11/23 0931 [Held by Provider] furosemide (LASIX) 10 mg/mL injection 40 mg 40 mg intravenous BID DIURETIC 40 mgat 10/09/231803 glucagon injection 1 mg 1 mg intramuscular Q30 Min PRN insulin glargine (LANTUS, SEMGLEE) 100 unit/mL injection 15 Units 0.25 Units/kg subcutaneous Nightly 15 Units at 10/11/232157 insulin lispro (HumaLOG, ADMELOG) 100 unit/mL injection 0-10 Units 0-10 Units subcutaneous TID withmeals 2 Units at 10/11/231826 insulin lispro (HumaLOG, ADMELOG) 100 unit/mL injection 0-5 Units 0-5 Units subcutaneous Nightly 1 Units at 10/10/232025 insulin lispro (HumaLOG, ADMELOG) 100 unit/mL injection 5 Units 0.083 Units/kg subcutaneous TID with meals 5 Units at 10/11/231826 metoprolol tartrate (LOPRESSOR) immediate release tablet 25 mg 25 mg oral BID 25 mg at 10/11/232150 ondansetron (ZOFRAN) injection 4 mg 4 mg intravenous Q6H PRN ramelteon (ROZEREM) tablet 8 mg 8 mg oral Nightly PRN risperiDONE (RisperDAL) tablet 2 mg 2 mg oral Nightly 2 mg at 10/11/232150 Continuous Medications Medication Dose Last Rate Physical Exam: General Appearance: Alert, cooperative, confused Head: Normocephalic, without obvious abnormality, atraumatic Eyes: PERRL, conjunctiva/corneas clear, EOM's intact, both eyes, anicteric Neck: Supple, symmetrical, trachea midline, no adenopathy; thyroid: No enlargement/tenderness/nodules; no carotid bruits, No JVD Lungs: Decreased breath sounds bilaterally Cardiovascular: Regular rate and rhythm, S1 and S2 normal, no murmur, rub or gallop Abdomen: Soft, non-tender, bowel sounds active all four quadrants, non-distended Extremities: Extremities normal, no LE edema Skin: Skin color, texture, turgor normal, no rashes, lesions or bruising Neurologic: Alert & oriented person, difficult time with orientation questions Psychosocial: Normal affect and mood Dialysis Access Exam: Lab/Radiology/Diagnostic Review: Recent Labs Lab Units 10/11/23 2158 10/11/23 0720 10/11/23 0443 10/10/23 0744 10/10/23 0501 10/09/23 0744 10/09/23 0714 SODIUM mmol/L -- -- 141 -- 141 -- 144 POTASSIUM PLASMA mmol/L -- -- 3.5 -- 3.9 -- 4.1 CHLORIDE mmol/L -- -- 109 -- 106 -- 110 CO2 mmol/L -- -- 22 -- 20* -- 19* BUN SERUM mg/dL -- -- 65* -- 64* -- 59* CREATININE mg/dL -- -- 4.55* -- 4.68* -- 4.59* [id number] mL/min/1.73 m2 -- -- 10* -- 9* -- 10* GLUCOSE mg/dL -- -- 78 -- 78 -- 90 POC GLUCOSE MONITOR mg/dL 131 < > -- < > -- < > -- CALCIUM mg/dL -- -- 8.3* -- 8.4* -- 8.2* ALBUMIN g/dL -- -- 2.8* -- 3.0* -- 2.7* PHOSPHORUS PLASMA mg/dL -- -- 5.5* -- 5.5* -- 5.8* < > = values in this interval not displayed. Additional Labs: Recent Labs Lab Units 10/10/23 1808 10/08/23 1155 10/06/23 2225 WBC K/cumm 8.9 8.2 9.6 HEMOGLOBIN g/dL 9.6* 8.9* 9.2* HEMATOCRIT % 29.6* 29.0* 29.1* PLATELETS K/cumm 322 311 280 NEUTROS PCT % 71.5 65.1 63.8 LYMPHS PCT % 20.0 26.3 26.8 MONOS PCT % 6.4 6.1 6.0 EOS PCT % 1.5 1.9 2.5 )Assessment/Plan 1. chronic kidney disease: Due to diabetes and hypertension. Stage IV. 2. Hypertension: Adjust blood pressure medicines as needed 3. Edema: Mostly due to pulmonary hypertension and chronic kidney disease. Ongoing diuresis. Expectsome rising creatinine with diuresis. As off 4. Metabolic acidosis: Due to renal failure. If it goes any lower will need supplementation. DICTATION DISCLAIMER: This note is transcribed using the [employer] direct voice recognition system without human dust control engineer. In an effort to expedite patient care, this note has not been adjusted for typographical, grammatical, and syntax by a trained medical equipment sales. Portions of this note have been copied from the medical record, but edited appropriately to accurately reflect the patient's current clinical state. Jimbo Strauss Office/exchange: [phone] * Bev Adames MD - 10/10/2023 10:57 AM CDT DAILY PROGRESS NOTE C/C:Swollen legs Interval History: On IV Lasix. More confused today, slurred speech per daughter SUBJECTIVE: Complaints: Unable to obtain due to confusion ROS: OBJECTIVE: Vitals: Temp (24hrs), Av.6 ??C (97.9 ??F), Min:36.6 ??C (97.8 ??F), Max:36.6 ??C (97.9 ??F) Vitals: 10/09/23 1500 10/09/23 1950 10/10/23 0305 10/10/23 0700 BP: 152/71 153/64 167/64 168/65 BP Location: Left arm Patient Position: Pulse: 68 69 68 74 Resp: Temp: 36.6 ??C (97.9 ??F) 36.6 ??C (97.9 ??F) 36.6 ??C (97.8 ??F) TempSrc: Oral Oral SpO2: 99% 99% 95% 96% Weight: Height: LDA: I/O: Intake/Output Summary (Last 24 hours) at 10/10/2023 1058 Last data filed at 10/10/2023 1006 Gross per 24 hour Intake 240 ml Output -- Net 240 ml Physical Exam General: Up in chair, awake,alert,eating lunch,on RA,NAD SHEENT:Skin warm,dry,no rashes. No icterus,no cyanosis,no pallor,EOMI. Neck:Supple Respi:Slightly diminished breath sounds silverio Cardio:RRR,no murmur GI:Abdomen soft,bowel sounds +,non tender,not distended. Extre: 1-2+edema legs,no cyanosis,no pallor Neuro:Non focal. Oriented x 1-2 Psych:Confused,incoherent Laboratory: Recent Results (from the past 24 hour(s)) POCT glucose Collection Time: 10/09/23 12:39 PM Result Value Ref Range Glucose, POC 120 70 - 199 mg/dL POCT glucose Collection Time: 10/09/23 6:04 PM Result Value Ref Range Glucose, POC 103 70 - 199 mg/dL POCT glucose Collection Time: 10/09/23 8:15 PM Result Value Ref Range Glucose, POC 82 70 - 199 mg/dL POCT glucose Collection Time: 10/10/23 2:17 AM Result Value Ref Range Glucose, POC 107 70 - 199 mg/dL Renal function panel Collection Time: 10/10/23 5:01 AM Result Value Ref Range Sodium 141 135 - 145 mmol/L Potassium, pl 3.9 3.3 - 4.9 mmol/L Chloride 106 97 - 110 mmol/L CO2 20 (L) 22 - 32 mmol/L Anion gap 15 2 - 15 mmol/L BUN 64 (H) 6 - 25 mg/dL Creatinine 4.68 (H) 0.60 - 1.10 mg/dL Glucose 78 70 - 199 mg/dL Calcium 8.4 (L) 8.5 - 10.3 mg/dL Phosphorus, pl 5.5 (H) 2.3 - 4.5 mg/dL Albumin 3.0 (L) 3.5 - 5.0 g/dL eGFR Collection Time: 10/10/23 5:01 AM Result Value Ref Range eGFR 9 (L) >=60 mL/min/1.73 m2 POCT glucose Collection Time: 10/10/23 7:44 AM Result Value Ref Range Glucose, POC 79 70 - 199 mg/dL Radiology: Scheduled Medications: amLODIPine, 5 mg, oral, Daily atorvastatin, 20 mg, oral, Nightly benztropine, 1.5 mg, oral, BID enoxaparin, 30 mg, subcutaneous, Daily-2099 famotidine, 10 mg, oral, Daily ferrous sulfate, 65 mg of elemental iron, oral, BID fluticasone propionate, 2 spray, each nostril, Daily furosemide, 40 mg, intravenous, BID DIURETIC insulin glargine, 0.25 Units/kg, subcutaneous, Nightly insulin lispro, 0-10 Units, subcutaneous, TID with meals insulin lispro, 0-5 Units, subcutaneous, Nightly insulin lispro, 0.083 Units/kg, subcutaneous, TID with meals metoprolol tartrate, 25 mg, oral, BID OLANZapine, 5 mg, intramuscular, Once risperiDONE, 2 mg, oral, Nightly Current Facility-Administered Medications: acetaminophen (TYLENOL) tablet 650 mg, 650 mg, oral, Q6H PRN, Rosa Jade NP, 650 mg at 10/08/232034 amLODIPine (NORVASC) tablet 5 mg, 5 mg, oral, Daily, Wally Plummer MD atorvastatin (LIPITOR) tablet 20 mg, 20 mg, oral, Nightly, Rosa Jade NP, 20 mg at 10/09/232049 benztropine (COGENTIN) tablet 1.5 mg, 1.5 mg, oral, BID, Rosa Jade NP, 1.5 mg at 10/10/23826 dextrose oral liquid liquid 15 g, 15 g, oral, Q15 Min PRN OR dextrose (D10W) 10% bolus 250 mL, 250 mL, intravenous, Q15 Min PRN, Rosa Jade NP enoxaparin (LOVENOX) syringe 30 mg, 30 mg, subcutaneous, Daily-2099, Guera Guillaume MD, 30 mg at 10/09/232049 famotidine (PEPCID) tablet 10 mg, 10 mg, oral, Daily, Rosa Jade NP, 10 mg at 10/10/23826 ferrous sulfate delayed release tablet 65 mg of elemental iron, 65 mg of elemental iron, oral, BID,Wheat, Rosa J., CLINICAL NURSE LEADER, 65 mg of elemental iron at 10/10/23 0827 fluticasone propionate (FLONASE) 50 mcg/actuation nasal spray 2 spray, 2 spray, each nostril, Daily, Rosa Jaed NP, 2 spray at 10/08/23 08 furosemide (LASIX) 10 mg/mL injection 40 mg, 40 mg, intravenous, BID DIURETIC, Rosa Jade, JARAD,40 mg at 10/09/231803 glucagon injection 1 mg, 1 mg, intramuscular, Q30 Min PRN, Rosa Jade, CLINICAL NURSE LEADER insulin glargine (LANTUS, SEMGLEE) 100 unit/mL injection 15 Units, 0.25 Units/kg, subcutaneous, Nightly, Rosa Jade NP, 15 Units at 10/09/232052 insulin lispro (HumaLOG, ADMELOG) 100 unit/mL injection 0-10 Units, 0-10 Units, subcutaneous, TID with meals, Rosa Jade NP, 2 Units at 10/08/231721 insulin lispro (HumaLOG, ADMELOG) 100 unit/mL injection 0-5 Units, 0-5 Units, subcutaneous, Nightly, Rosa Jade, JARAD, 2 Units at 10/08/232038 insulin lispro (HumaLOG, ADMELOG) 100 unit/mL injection 5 Units, 0.083 Units/kg, subcutaneous, TID with meals, Rosa Jade, JARAD, 5 Units at 10/09/231803 metoprolol tartrate (LOPRESSOR) immediate release tablet 25 mg, 25 mg, oral, BID, Bev Adames MD, 25 mg at 10/10/23826 OLANZapine (ZyPREXA) 5 mg in sterile water 1 mL (5 mg/mL) syringe, 5 mg, intramuscular, Once, Marci Mcgregor NP ondansetron (ZOFRAN) injection 4 mg, 4 mg, intravenous, Q6H PRN, Rosa Jade NP ramelteon (ROZEREM) tablet 8 mg, 8 mg, oral, Nightly PRN, Sujatha Montes De Oca NP risperiDONE (RisperDAL) tablet 2 mg, 2 mg, oral, Nightly, Rosa Jade NP, 2 mg at 10/09/232049 Continuous Medications: PRN Medications: acetaminophen dextrose OR dextrose glucagon ondansetron [facility] course: 72 y.o. AAF pt with a PMHx significant for Arthritis, HFpEF, Dementia, Depression, Diabetic neuropathy, HLD, HTN, Osteomyelitis, CKD IV, Schizophrenia, and IDDM presented to the ED with a chief complaint of lower extremity edema. ASSESSMENT/PLAN: All diagnoses were present on admission unless otherwise stated. Principal Problem: --Acute on chronic diastolic heart failure with Bilateral lower extremity edema -EF 65%, moderate pulmonary hypertension, mild tricuspid regurg by TTE November 2022 -volume overload likely secondary to advanced CKD -diuretics stopped outpatient due to worsening renal function Consulted Cardiology and Nephrology continue with IV Lasix 40 mg b.i.d. -apply Jerzy hose -daily weights, sodium restricted diet, fluid restriction Active problems: --STEFANO on CKD 4: BUN 54, creatinine 4.09, GFR 11 -baseline CKD 4 with a creatinine about 2.12 2.4 with advancement of disease since June, last check creatinine 3.6, BUN 48, GFR 13 in July 2023 -Consulted nephrology, following, managing diuresis -renal diet, fluid restriction -monitor electrolytes Cr still rising, now 4.68 Will hold Lasix and notify Nephrology --Uncontrolled insulin-dependent type 2 diabetes with hyperglycemia and Diabetic neuropathy -basal/bolus/SSI, a.c. and HS glucose checks, consistent carb diet -not currently on gabapentin, likely secondary to advanced CKD BS 70-120 --Hypertension, uncontrolled Switched amlodipine to BB due to edema Now under fair control -monitor closely --Anemia of chronic CKD -stable trend, no evidence of acute blood loss, monitor -continue ferrous sulfate at home dose --GERD -continue famotidine --HLD -continue atorvastatin at home dose --Schizoaffective disorder/Dementia, Depression -continue risperidone, benztropine at home dose These fluid and electrolyte abnormalities are being treated, evaluated or monitored: --Chronic NAGMA: From CKD . Improving now Will monitor closely --Hyperphosphotemia:Sec to CKD Stable. --AMS with confusion, incoherent, slurred speech 10/08: Will do CT Head, check UA, CXR. Afebrile. Will check CBC DVT Prophylaxis with SQ Lovenox Code status: Full code D/W RN D/W Daughter FF Medical Decision Making complexity: High Discharge disposition:Home when ready Bev Adames MD 10/10/2023 10:58 AM [facility] [place] * Wally Plummer MD - 10/10/2023 10:44 AM CDT Cardiology Inpatient Progress Note [facility] SUBJECTIVE: Pt had no acute events overnight. She has had some increased confusion per nursing and currently has a sitter. She denies any shortness of breath. OBJECTIVE: Vitals: 10/09/23 1500 10/09/23 1950 10/10/23 0305 10/10/23 0700 BP: 152/71 153/64 167/64 168/65 BP Location: Left arm Patient Position: Pulse: 68 69 68 74 Resp: Temp: 36.6 ??C (97.9 ??F) 36.6 ??C (97.9 ??F) 36.6 ??C (97.8 ??F) TempSrc: Oral Oral SpO2: 99% 99% 95% 96% Weight: Height: General: Aox1, No acute distress. Cardiac: RRR without murmur or gallop. Normal S1 and S2. No JVD. Vascular: Pulses are palpable in all extremities. No carotid bruits. Lungs: Clear to auscultation (B). Abdomen: Soft, NT/ND, +BS Ext: Warm with mild edema. No cyanosis or clubbing. ASSESSMENT/PLAN: Hypervolemia -due to CKD stage 4 on IV diuretics as per Nephrology CKD stage IV -Cr is at 4.68 this am Acute on chronic diastolic heart failure -normal LV function -volume issues related to CKD as noted above Elevated troponin due to renal dysfunction -does not represent ACS -nonischemic MPI on 08/05/22 Essential hypertension -BP is above goal -I will add Amlodipine and continue Lopressor Type 2 DM -stable with glycemic management per the primary team Dyslipidemia -stable on Atorvastatin Iron deficiency anemia -Hgb stable ~9 Wally Plummer MD, FSCAI, [facility] 10/10/2023 10:44 AM * Jimbo Strauss MD - 10/09/2023 5:00 PM CDT Nephrology Daily Progress [facility]# [id number] SS#: [id number] Phone#: [phone] #: [id number] Subjective Chief complaint of Interval History: confused, needs a siter Objective Vitals: 24hr Min/Max: Temp Min: 36.4 ??C (97.5 ??F) Max: 37.2 ??C (98.9 ??F) Pulse Min: 61 Max: 80 BP Min: 117/56 Max: 153/62 Resp Min: 16 Max: 20 SpO2 Min: 96 % Max: 100 % Intake/Output Summary (Last 24 hours) at 10/11/2023 2205 Last data filed at 10/11/2023 1755 Gross per 24 hour Intake 700 ml Output -- Net 700 ml Wt Readings from Last 3 Encounters: 10/07/23 64.5 kg (142 lb 1.6 oz) 09/03/23 58.5 kg (129 lb) 08/03/23 58.2 kg (128 lb 6.4 oz) Temp Av.7 ??C (98.1 ??F) Min: 36.4 ??C (97.5 ??F) Max: 37.2 ??C (98.9 ??F) BP Min: 117/56 Max: 153/62 Pulse Av.6 Min: 61 Max: 80 Resp Av Min: 16 Max: 20 SpO2 Av.8 % Min: 96 % Max: 100 % Most Recent: Vitals: 10/11/231999 BP: 117/56 Pulse: 68 Resp: 18 Temp: 37.2 ??C (98.9 ??F) SpO2: 97% I/O last 2 completed shifts: In: 700 [P.O.:700] Out: - No intake/output data recorded. Current Facility-Administered Medications Medication Dose Route Frequency Last Rate Last Admin acetaminophen (TYLENOL) tablet 650 mg 650 mg oral Q6H PRN 650 mg at 10/08/232034 amLODIPine (NORVASC) tablet 10 mg 10 mg oral Daily 10 mg at 10/11/23927 atorvastatin (LIPITOR) tablet 20 mg 20 mg oral Nightly 20 mg at 10/11/232150 benztropine (COGENTIN) tablet 1.5 mg 1.5 mg oral BID 1.5 mg at 10/11/232150 dextrose oral liquid liquid 15 g 15 g oral Q15 Min PRN Or dextrose (D10W) 10% bolus 250 mL 250 mL intravenous Q15 Min PRN enoxaparin (LOVENOX) syringe 30 mg 30 mg subcutaneous Daily-2100 30 mg at 10/11/232151 famotidine (PEPCID) tablet 10 mg 10 mg oral Daily 10 mg at 10/11/23927 ferrous sulfate delayed release tablet 65 mg of elemental iron 65 mg of elemental iron oral BID 65 mg of elemental iron at 10/11/232151 fluticasone propionate (FLONASE) 50 mcg/actuation nasal spray 2 spray 2 spray each nostril Daily 2 spray at 10/11/23930 [Held by Provider] furosemide (LASIX) 10 mg/mL injection 40 mg 40 mg intravenous BID DIURETIC 40 mgat 10/09/231803 glucagon injection 1 mg 1 mg intramuscular Q30 Min PRN insulin glargine (LANTUS, SEMGLEE) 100 unit/mL injection 15 Units 0.25 Units/kg subcutaneous Nightly 15 Units at 10/11/232157 insulin lispro (HumaLOG, ADMELOG) 100 unit/mL injection 0-10 Units 0-10 Units subcutaneous TID withmeals 2 Units at 10/11/231826 insulin lispro (HumaLOG, ADMELOG) 100 unit/mL injection 0-5 Units 0-5 Units subcutaneous Nightly 1 Units at 10/10/232025 insulin lispro (HumaLOG, ADMELOG) 100 unit/mL injection 5 Units 0.083 Units/kg subcutaneous TID with meals 5 Units at 10/11/231826 metoprolol tartrate (LOPRESSOR) immediate release tablet 25 mg 25 mg oral BID 25 mg at 10/11/232150 ondansetron (ZOFRAN) injection 4 mg 4 mg intravenous Q6H PRN ramelteon (ROZEREM) tablet 8 mg 8 mg oral Nightly PRN risperiDONE (RisperDAL) tablet 2 mg 2 mg oral Nightly 2 mg at 10/11/23 2151 Continuous Medications Medication Dose Last Rate Physical Exam: General Appearance: Alert, cooperative, confused Head: Normocephalic, without obvious abnormality, atraumatic Eyes: PERRL, conjunctiva/corneas clear, EOM's intact, both eyes, anicteric Neck: Supple, symmetrical, trachea midline, no adenopathy; thyroid: No enlargement/tenderness/nodules; no carotid bruits, No JVD Lungs: Decreased breath sounds bilaterally Cardiovascular: Regular rate and rhythm, S1 and S2 normal, no murmur, rub or gallop Abdomen: Soft, non-tender, bowel sounds active all four quadrants, non-distended Extremities: Extremities normal, no LE edema Skin: Skin color, texture, turgor normal, no rashes, lesions or bruising Neurologic: Alert & oriented person, difficult time with orientation questions Psychosocial: Normal affect and mood Dialysis Access Exam: Lab/Radiology/Diagnostic Review: Recent Labs Lab Units 10/11/23 1704 10/11/23 0720 10/11/23 0443 10/10/23 0744 10/10/23 0501 10/09/23 0744 10/09/23 0714 SODIUM mmol/L -- -- 141 -- 141 -- 144 POTASSIUM PLASMA mmol/L -- -- 3.5 -- 3.9 -- 4.1 CHLORIDE mmol/L -- -- 109 -- 106 -- 110 CO2 mmol/L -- -- 22 -- 20* -- 19* BUN SERUM mg/dL -- -- 65* -- 64* -- 59* CREATININE mg/dL -- -- 4.55* -- 4.68* -- 4.59* SEV-XCD-OTCSENH mL/min/1.73 m2 -- -- 10* -- 9* -- 10* GLUCOSE mg/dL -- -- 78 -- 78 -- 90 POC GLUCOSE MONITOR mg/dL 182 < > -- < > -- < > -- CALCIUM mg/dL -- -- 8.3* -- 8.4* -- 8.2* ALBUMIN g/dL -- -- 2.8* -- 3.0* -- 2.7* PHOSPHORUS PLASMA mg/dL -- -- 5.5* -- 5.5* -- 5.8* < > = values in this interval not displayed. Additional Labs: Recent Labs Lab Units 10/10/23 1808 10/08/23 1155 10/06/23 2225 WBC K/cumm 8.9 8.2 9.6 HEMOGLOBIN g/dL 9.6* 8.9* 9.2* HEMATOCRIT % 29.6* 29.0* 29.1* PLATELETS K/cumm 322 311 280 NEUTROS PCT % 71.5 65.1 63.8 LYMPHS PCT % 20.0 26.3 26.8 MONOS PCT % 6.4 6.1 6.0 EOS PCT % 1.5 1.9 2.5 )Assessment/Plan 1. chronic kidney disease: Due to diabetes and hypertension. Stage IV. 2. Hypertension: Adjust blood pressure medicines as needed 3. Edema: Mostly due to pulmonary hypertension and chronic kidney disease. Ongoing diuresis. Expectsome rising creatinine with diuresis. As off 4. Metabolic acidosis: Due to renal failure. If it goes any lower will need supplementation. DICTATION DISCLAIMER: This note is transcribed using the [employer] direct voice recognition system without human dust control engineer. In an effort to expedite patient care, this note has not been adjusted for typographical, grammatical, and syntax by a trained medical equipment sales. Portions of this note have been copied from the medical record, but edited appropriately to accurately reflect the patient's current clinical state. Jimbo Strauss Office/exchange: [phone] * William Velasquez MD - 10/09/2023 10:43 AM CDT Daily Progress [facility] Cardiology Subjective: Getting IV diuretics urine output has not been recorded, lying flat still have leg edema OBJECTIVE: Past Medical History: Diagnosis Date Anemia Arthritis CHF (congestive heart failure) (CMS/HCC) (HCC) Dementia (HCC) Depression Diabetic neuropathy (HCC) GERD (gastroesophageal reflux disease) HL (hearing loss) Hyperlipidemia Hypertension Movement disorder Osteomyelitis (HCC) Renal disorder Schizophrenia (HCC) Type 2 diabetes mellitus (HCC) Family History Problem Relation Age of Onset Diabetes Mother Heart disease Mother Kidney disease Mother Stomach cancer Father Alcohol abuse Father Diabetes Sister Diabetes Sister Diabetes Brother Scheduled Medications Medication Dose Route Frequency atorvastatin (LIPITOR) tablet 20 mg 20 mg oral Nightly benztropine (COGENTIN) tablet 1.5 mg 1.5 mg oral BID enoxaparin (LOVENOX) syringe 30 mg 30 mg subcutaneous Daily-2100 famotidine (PEPCID) tablet 10 mg 10 mg oral Daily ferrous sulfate delayed release tablet 65 mg of elemental iron 65 mg of elemental iron oral BID fluticasone propionate (FLONASE) 50 mcg/actuation nasal spray 2 spray 2 spray each nostril Daily furosemide (LASIX) 10 mg/mL injection 40 mg 40 mg intravenous BID DIURETIC insulin glargine (LANTUS, SEMGLEE) 100 unit/mL injection 15 Units 0.25 Units/kg subcutaneous Nightly insulin lispro (HumaLOG, ADMELOG) 100 unit/mL injection 0-10 Units 0-10 Units subcutaneous TID withmeals insulin lispro (HumaLOG, ADMELOG) 100 unit/mL injection 0-5 Units 0-5 Units subcutaneous Nightly insulin lispro (HumaLOG, ADMELOG) 100 unit/mL injection 5 Units 0.083 Units/kg subcutaneous TID with meals metoprolol tartrate (LOPRESSOR) immediate release tablet 25 mg 25 mg oral BID risperiDONE (RisperDAL) tablet 2 mg 2 mg oral Nightly Exam: Gen: Comfortable, NAD CVS: RRR, S1, S2 present, HSM GI: Soft Non tender Chest: Air entry reduced CTAB Psych: Appropriate mood and affect Neuro: Alert, oriented, No deficits. Recent Labs Lab Units 10/08/23 1155 10/06/23 2225 WBC K/cumm 8.2 9.6 HEMOGLOBIN g/dL 8.9* 9.2* HEMATOCRIT % 29.0* 29.1* PLATELETS K/cumm 311 280 Recent Labs Lab Units 10/09/23 0744 10/09/23 0714 10/09/23 0148 10/08/23 2039 10/08/23 1537 10/08/23 1336 10/08/23 1155 10/07/23 0917 10/06/23 2225 SODIUM mmol/L -- 144 -- -- -- 141 144 -- 139 POTASSIUM PLASMA mmol/L -- 4.1 -- -- -- 4.1 3.9 -- 4.4 CHLORIDE mmol/L -- 110 -- -- -- 106 109 -- 108 CO2 mmol/L -- 19* -- -- -- 21* 21* -- 18* ANIONGAP mmol/L -- 15 -- -- -- 14 14 -- 13 GLUCOSE mg/dL -- 90 -- -- -- 216* 200* -- 285* POC GLUCOSE MONITOR mg/dL 91 -- 137 216* 185 -- -- < > -- BUN SERUM mg/dL -- 59* -- -- -- 55* 52* -- 54* CREATININE mg/dL -- 4.59* -- -- -- 4.46* 4.42* -- 4.09* CALCIUM mg/dL -- 8.2* -- -- -- 8.5 8.3* -- 8.0* ALBUMIN g/dL -- 2.7* -- -- -- -- 3.2* -- 3.0* ALK PHOS Units/L -- -- -- -- -- -- 139* -- 154* ALT Units/L -- -- -- -- -- -- 9 -- 12 AST Units/L -- -- -- -- -- -- 15 -- 26 BILIRUBIN TOTAL mg/dL -- -- -- -- -- -- 0.2 -- 0.2 < > = values in this interval not displayed. No intake or output data in the 24 hours ending 10/09/23 1044 Vitals: 10/08/23 1952 10/09/23 0005 10/09/23 0348 10/09/23 0700 BP: (!) 186/70 151/79 148/67 153/83 BP Location: Left arm Left arm Patient Position: Sitting Lying Pulse: 80 59 67 68 Resp: 20 20 20 20 Temp: 36.6 ??C (97.9 ??F) 36.4 ??C (97.6 ??F) 36.5 ??C (97.7 ??F) 36.6 ??C (97.8 ??F) TempSrc: Oral Oral Oral SpO2: 98% 97% 98% 98% Weight: Height: ASSESSMENT/PLAN: Patient Active Problem List Diagnosis Diabetic neuropathy ([facility]) Type 2 diabetes mellitus with diabetic neuropathy, with long-term current use of insulin ([facility]) Primary hypertension Amputation of toe of right foot ([facility]) ([facility]) Iron deficiency anemia Gastroesophageal reflux disease without esophagitis Mixed hyperlipidemia Schizoaffective disorder, bipolar type ([facility]) ([facility]) 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 2 diabetes mellitus ([facility]) ([facility]) Encounter for Medicare annual wellness exam Late onset Alzheimer's dementia without behavioral disturbance ([facility]) Volume overload Anemia Toe necrosis ([facility]) ([facility]) Physical deconditioning Left leg DVT ([facility]) Pulmonary nodule Retention of urine, unspecified Unspecified osteoarthritis, unspecified site Unsteadiness on feet Weakness Parkinsonism ([facility]) Wheezing Anemia in stage 4 chronic kidney disease ([facility]) Osteomyelitis of great toe of right foot ([facility]) ([facility]) Abnormal urinalysis Acute kidney injury superimposed on CKD ([facility]) Acute on chronic diastolic congestive heart failure ([facility]) ([facility]) Bibasilar consolidations Movement disorder Shortness of breath GI bleed Bandemia Leg swelling Diabetes mellitus with hyperglycemia ([facility]) ([facility]) Dyslipidemia Volume overload - due to CKD stage 4 on IV diuresis as per Nephrology currently on IV Lasix urine output not recorded will order accurate input output CKD stage IV -nephrology is managing seen by Dr. Cronin Acute on chronic diastolic heart failure - normal LV function on recent echocardiogram Elevated troponin due to renal dysfunction - does not represent ACS - nonischemic MPI recently Essential hypertension -BP stable Diabetes mellitus type 2 Iron deficiency anemia - hemoglobin stable William Velasquez MD, [facility] [place], [facility] [phone] 10/09/2023 10:44 AM * Bev Adames MD - 10/09/2023 9:19 AM CDT DAILY PROGRESS NOTE C/C:Swollen legs Interval History: On IV Lasix. Unsteady on walking per sitter. SUBJECTIVE: Complaints: No SOB, no CP ROS: OBJECTIVE: Vitals: Temp (24hrs), Av.5 ??C (97.7 ??F), Min:36.4 ??C (97.6 ??F), Max:36.6 ??C (97.9 ??F) Vitals: 10/08/23 1952 10/09/23 0005 10/09/23 0348 10/09/23 0700 BP: (!) 186/70 151/79 148/67 153/83 BP Location: Left arm Left arm Patient Position: Sitting Lying Pulse: 80 59 67 68 Resp: 20 20 20 20 Temp: 36.6 ??C (97.9 ??F) 36.4 ??C (97.6 ??F) 36.5 ??C (97.7 ??F) 36.6 ??C (97.8 ??F) TempSrc: Oral Oral Oral SpO2: 98% 97% 98% 98% Weight: Height: LDA: I/O: Intake/Output Summary (Last 24 hours) at 10/09/2023 09 Last data filed at 10/08/2023 0925 Gross per 24 hour Intake 240 ml Output -- Net 240 ml Physical Exam General: Lying in bed, sleeping arousable,on RA,NAD SHEENT:Skin warm,dry,no rashes. No icterus,no cyanosis,no pallor,EOMI. Neck:Supple Respi:Slightly diminished breath sounds silverio Cardio:RRR,no murmur GI:Abdomen soft,bowel sounds +,non tender,not distended. Extre: 2+edema legs,no cyanosis,no pallor Neuro:Non focal. Oriented x 2 Psych:Mood/Affect normal.Behavior normal. Laboratory: Recent Results (from the past 24 hour(s)) Magnesium Collection Time: 10/08/23 11:55 AM Result Value Ref Range Magnesium 1.5 1.4 - 2.5 mg/dL CBC with auto differential Collection Time: 10/08/23 11:55 AM Result Value Ref Range WBC 8.2 3.8 - 9.9 K/cumm Hgb 8.9 (L) 11.9 - 15.5 g/dL Hct 29.0 (L) 35.6 - 45.5 % Plt 311 150 - 400 K/cumm MPV 10.7 9.1 - 12.3 fL RBC 3.05 (L) 3.90 - 5.20 M/cumm MCV 95.1 81.3 - 96.4 fL MCH 29.2 27.1 - 33.3 pg MCHC 30.7 (L) 32.3 - 35.7 g/dL RDW CV 15.2 (H) 11.1 - 14.9 % RDW SD 52.8 (H) 35.7 - 48.1 fL NRBC abs 0.00 0.00 - 0.01 K/cumm Creatine kinase (CK), total Collection Time: 10/08/23 11:55 AM Result Value Ref Range CK 174 30 - 200 Units/L Hemoglobin A1c Collection Time: 10/08/23 11:55 AM Result Value Ref Range Hgb A1C 8.2 (H) 4.0 - 5.6 % Estimated Average Glucose 189 mg/dL Differential, auto Collection Time: 10/08/23 11:55 AM Result Value Ref Range Neutrophil abs 5.4 1.5 - 6.5 K/cumm Imm gran abs 0.0 0.0 - 0.1 K/cumm Lymphocyte abs 2.2 0.8 - 3.3 K/cumm Monocyte abs 0.5 0.2 - 0.8 K/cumm Eosinophil abs 0.2 0.0 - 0.5 K/cumm Basophil abs 0.0 0.0 - 0.1 K/cumm Neutrophil pct 65.1 % Imm gran pct 0.2 % Lymphocyte pct 26.3 % Monocyte pct 6.1 % Eosinophil pct 1.9 % Basophil pct 0.4 % Comprehensive metabolic panel Collection Time: 10/08/23 11:55 AM Result Value Ref Range Sodium 144 135 - 145 mmol/L Potassium, pl 3.9 3.3 - 4.9 mmol/L Chloride 109 97 - 110 mmol/L CO2 21 (L) 22 - 32 mmol/L Anion gap 14 2 - 15 mmol/L BUN 52 (H) 6 - 25 mg/dL Creatinine 4.42 (H) 0.60 - 1.10 mg/dL Glucose 200 (H) 70 - 199 mg/dL Calcium 8.3 (L) 8.5 - 10.3 mg/dL Bilirubin, total 0.2 0.1 - 1.2 mg/dL Protein, pl 7.1 6.5 - 8.5 g/dL Albumin 3.2 (L) 3.5 - 5.0 g/dL Alk phos 139 (H) 40 - 130 Units/L ALT 9 7 - 45 Units/L AST 15 10 - 45 Units/L Bilirubin, direct Collection Time: 10/08/23 11:55 AM Result Value Ref Range Bilirubin, direct <0.2 0.1 - 0.3 mg/dL Phosphorus Collection Time: 10/08/23 11:55 AM Result Value Ref Range Phosphorus, pl 4.9 (H) 2.3 - 4.5 mg/dL eGFR Collection Time: 10/08/23 11:55 AM Result Value Ref Range eGFR 10 (L) >=60 mL/min/1.73 m2 Basic metabolic panel Collection Time: 10/08/23 1:36 PM Result Value Ref Range Sodium 141 135 - 145 mmol/L Potassium, pl 4.1 3.3 - 4.9 mmol/L Chloride 106 97 - 110 mmol/L CO2 21 (L) 22 - 32 mmol/L Anion gap 14 2 - 15 mmol/L BUN 55 (H) 6 - 25 mg/dL Creatinine 4.46 (H) 0.60 - 1.10 mg/dL Glucose 216 (H) 70 - 199 mg/dL Calcium 8.5 8.5 - 10.3 mg/dL eGFR Collection Time: 10/08/23 1:36 PM Result Value Ref Range eGFR 10 (L) >=60 mL/min/1.73 m2 POCT glucose Collection Time: 10/08/23 3:37 PM Result Value Ref Range Glucose, POC 185 70 - 199 mg/dL POCT glucose Collection Time: 10/08/23 8:39 PM Result Value Ref Range Glucose, POC 216 (H) 70 - 199 mg/dL POCT glucose Collection Time: 10/09/23 1:48 AM Result Value Ref Range Glucose, POC 137 70 - 199 mg/dL Renal function panel Collection Time: 10/09/23 7:14 AM Result Value Ref Range Sodium 144 135 - 145 mmol/L Potassium, pl 4.1 3.3 - 4.9 mmol/L Chloride 110 97 - 110 mmol/L CO2 19 (L) 22 - 32 mmol/L Anion gap 15 2 - 15 mmol/L BUN 59 (H) 6 - 25 mg/dL Creatinine 4.59 (H) 0.60 - 1.10 mg/dL Glucose 90 70 - 199 mg/dL Calcium 8.2 (L) 8.5 - 10.3 mg/dL Phosphorus, pl 5.8 (H) 2.3 - 4.5 mg/dL Albumin 2.7 (L) 3.5 - 5.0 g/dL eGFR Collection Time: 10/09/23 7:14 AM Result Value Ref Range eGFR 10 (L) >=60 mL/min/1.73 m2 POCT glucose Collection Time: 10/09/23 7:44 AM Result Value Ref Range Glucose, POC 91 70 - 199 mg/dL Radiology: Scheduled Medications: atorvastatin, 20 mg, oral, Nightly benztropine, 1.5 mg, oral, BID enoxaparin, 30 mg, subcutaneous, Daily-2099 famotidine, 10 mg, oral, Daily ferrous sulfate, 65 mg of elemental iron, oral, BID fluticasone propionate, 2 spray, each nostril, Daily furosemide, 40 mg, intravenous, BID DIURETIC insulin glargine, 0.25 Units/kg, subcutaneous, Nightly insulin lispro, 0-10 Units, subcutaneous, TID with meals insulin lispro, 0-5 Units, subcutaneous, Nightly insulin lispro, 0.083 Units/kg, subcutaneous, TID with meals metoprolol tartrate, 25 mg, oral, BID risperiDONE, 2 mg, oral, Nightly Current Facility-Administered Medications: acetaminophen (TYLENOL) tablet 650 mg, 650 mg, oral, Q6H PRN, Rosa Jade NP, 650 mg at 10/08/232034 atorvastatin (LIPITOR) tablet 20 mg, 20 mg, oral, Nightly, Rosa Jade NP, 20 mg at 10/08/232035 benztropine (COGENTIN) tablet 1.5 mg, 1.5 mg, oral, BID, Rosa Jade NP, 1.5 mg at 10/09/23 0820 dextrose oral liquid liquid 15 g, 15 g, oral, Q15 Min PRN OR dextrose (D10W) 10% bolus 250 mL, 250 mL, intravenous, Q15 Min PRN, Rosa Jade, CLINICAL NURSE LEADER enoxaparin (LOVENOX) syringe 30 mg, 30 mg, subcutaneous, Daily-2099, Flash Guillaume- Flash Guzman MD, 30 mg at 10/08/232035 famotidine (PEPCID) tablet 10 mg, 10 mg, oral, Daily, Rosa Jade NP, 10 mg at 10/09/23 0821 ferrous sulfate delayed release tablet 65 mg of elemental iron, 65 mg of elemental iron, oral, BID,Rosa Jade, JARAD, 65 mg of elemental iron at 10/09/23 0820 fluticasone propionate (FLONASE) 50 mcg/actuation nasal spray 2 spray, 2 spray, each nostril, Daily, Rosa Jade, JARAD, 2 spray at 10/08/23 08 furosemide (LASIX) 10 mg/mL injection 40 mg, 40 mg, intravenous, BID DIURETIC, Rosa Jade, JARAD,40 mg at 10/09/23820 glucagon injection 1 mg, 1 mg, intramuscular, Q30 Min PRN, Rosa Jade, JARAD insulin glargine (LANTUS, SEMGLEE) 100 unit/mL injection 15 Units, 0.25 Units/kg, subcutaneous, Nightly, Rosa Jade NP, 15 Units at 10/08/232038 insulin lispro (HumaLOG, ADMELOG) 100 unit/mL injection 0-10 Units, 0-10 Units, subcutaneous, TID with meals, Rosa Jade NP, 2 Units at 10/08/231721 insulin lispro (HumaLOG, ADMELOG) 100 unit/mL injection 0-5 Units, 0-5 Units, subcutaneous, Nightly, Rosa Jade, JARAD, 2 Units at 10/08/232038 insulin lispro (HumaLOG, ADMELOG) 100 unit/mL injection 5 Units, 0.083 Units/kg, subcutaneous, TID with meals, Rosa Jade, JARAD, 5 Units at 10/09/23820 metoprolol tartrate (LOPRESSOR) immediate release tablet 25 mg, 25 mg, oral, BID, Bev Adames MD, 25 mg at 10/09/23820 ondansetron (ZOFRAN) injection 4 mg, 4 mg, intravenous, Q6H PRN, Rosa Jade, JARAD ramelteon (ROZEREM) tablet 8 mg, 8 mg, oral, Nightly PRN, Sujatha Montes De Oca NP risperiDONE (RisperDAL) tablet 2 mg, 2 mg, oral, Nightly, Rosa Jade NP, 2 mg at 10/08/232035 Continuous Medications: PRN Medications: acetaminophen dextrose OR dextrose glucagon ondansetron [facility] course: 72 y.o. AAF pt with a PMHx significant for Arthritis, HFpEF, Dementia, Depression, Diabetic neuropathy, HLD, HTN, Osteomyelitis, CKD IV, Schizophrenia, and IDDM presented to the ED with a chief complaint of lower extremity edema. ASSESSMENT/PLAN: All diagnoses were present on admission unless otherwise stated. Principal Problem: --Acute on chronic diastolic heart failure with Bilateral lower extremity edema -EF 65%, moderate pulmonary hypertension, mild tricuspid regurg by TTE November 2022 -volume overload likely secondary to advanced CKD -diuretics stopped outpatient due to worsening renal function Consulted Cardiology and Nephrology continue with IV Lasix 40 mg b.i.d. -apply Jerzy hose -daily weights, sodium restricted diet, fluid restriction Active problems: --STEFANO on CKD 4: BUN 54, creatinine 4.09, GFR 11 -baseline CKD 4 with a creatinine about 2.12 2.4 with advancement of disease since June, last check creatinine 3.6, BUN 48, GFR 13 in July 2023 -Consulted nephrology, following, managing diuresis -renal diet, fluid restriction -monitor electrolytes Cr still rising, now 4.59 --Uncontrolled insulin-dependent type 2 diabetes with hyperglycemia and Diabetic neuropathy -basal/bolus/SSI, a.c. and HS glucose checks, consistent carb diet -not currently on gabapentin, likely secondary to advanced CKD BS 90-130 --Hypertension, uncontrolled Switched amlodipine to BB due to edema Now under fair control -monitor while on IV Lasix Vital signs per floor routine --Anemia of chronic CKD -stable trend, no evidence of acute blood loss, monitor -continue ferrous sulfate at home dose --GERD -continue famotidine --HLD -continue atorvastatin at home dose --Schizoaffective disorder/Dementia, Depression -continue risperidone, benztropine at home dose These fluid and electrolyte abnormalities are being treated, evaluated or monitored: --Chronic NAGMA: From CKD . Worsening. Will monitor closely --Hyperphosphotemia:Sec to CKD DVT Prophylaxis with SQ Lovenox Code status: Full code D/W RN/SW/CM/Charge nurse in IDR Medical Decision Making complexity: Moderate Expected date of discharge:Likely Thursday Barriers to discharge:Still edematous and rising Cr. Discharge disposition:Home Bev Adames MD 10/09/2023 9:19 AM [facility], Hospitalist * Jimbo Strauss MD - 10/08/2023 5:00 PM CDT Nephrology Daily Progress CSN# [id number] SS#: [id number] Phone#: [phone] #: [phone] Subjective Chief complaint of Interval History: confused, needs a siter Objective Vitals: 24hr Min/Max: Temp Min: 36.4 ??C (97.5 ??F) Max: 37.2 ??C (98.9 ??F) Pulse Min: 61 Max: 80 BP Min: 117/56 Max: 153/62 Resp Min: 16 Max: 20 SpO2 Min: 96 % Max: 100 % Intake/Output Summary (Last 24 hours) at 10/11/20232200 Last data filed at 10/11/2023 1755 Gross per 24 hour Intake 700 ml Output -- Net 700 ml Wt Readings from Last 3 Encounters: 10/07/23 64.5 kg (142 lb 1.6 oz) 09/03/23 58.5 kg (129 lb) 08/03/23 58.2 kg (128 lb 6.4 oz) Temp Av.7 ??C (98.1 ??F) Min: 36.4 ??C (97.5 ??F) Max: 37.2 ??C (98.9 ??F) BP Min: 117/56 Max: 153/62 Pulse Av.6 Min: 61 Max: 80 Resp Av Min: 16 Max: 20 SpO2 Av.8 % Min: 96 % Max: 100 % Most Recent: Vitals: 10/11/231999 BP: 117/56 Pulse: 68 Resp: 18 Temp: 37.2 ??C (98.9 ??F) SpO2: 97% I/O last 2 completed shifts: In: 700 [P.O.:700] Out: - No intake/output data recorded. Current Facility-Administered Medications Medication Dose Route Frequency Last Rate Last Admin acetaminophen (TYLENOL) tablet 650 mg 650 mg oral Q6H PRN 650 mg at 10/08/232034 amLODIPine (NORVASC) tablet 10 mg 10 mg oral Daily 10 mg at 10/11/23927 atorvastatin (LIPITOR) tablet 20 mg 20 mg oral Nightly 20 mg at 10/11/232150 benztropine (COGENTIN) tablet 1.5 mg 1.5 mg oral BID 1.5 mg at 10/11/232150 dextrose oral liquid liquid 15 g 15 g oral Q15 Min PRN Or dextrose (D10W) 10% bolus 250 mL 250 mL intravenous Q15 Min PRN enoxaparin (LOVENOX) syringe 30 mg 30 mg subcutaneous Daily-2100 30 mg at 10/11/232151 famotidine (PEPCID) tablet 10 mg 10 mg oral Daily 10 mg at 10/11/23927 ferrous sulfate delayed release tablet 65 mg of elemental iron 65 mg of elemental iron oral BID 65 mg of elemental iron at 10/11/232151 fluticasone propionate (FLONASE) 50 mcg/actuation nasal spray 2 spray 2 spray each nostril Daily 2 spray at 10/11/23 0931 [Held by Provider] furosemide (LASIX) 10 mg/mL injection 40 mg 40 mg intravenous BID DIURETIC 40 mgat 10/09/231803 glucagon injection 1 mg 1 mg intramuscular Q30 Min PRN insulin glargine (LANTUS, SEMGLEE) 100 unit/mL injection 15 Units 0.25 Units/kg subcutaneous Nightly 15 Units at 10/11/232157 insulin lispro (HumaLOG, ADMELOG) 100 unit/mL injection 0-10 Units 0-10 Units subcutaneous TID withmeals 2 Units at 10/11/231826 insulin lispro (HumaLOG, ADMELOG) 100 unit/mL injection 0-5 Units 0-5 Units subcutaneous Nightly 1 Units at 10/10/232025 insulin lispro (HumaLOG, ADMELOG) 100 unit/mL injection 5 Units 0.083 Units/kg subcutaneous TID with meals 5 Units at 10/11/23 182 metoprolol tartrate (LOPRESSOR) immediate release tablet 25 mg 25 mg oral BID 25 mg at 10/11/232150 ondansetron (ZOFRAN) injection 4 mg 4 mg intravenous Q6H PRN ramelteon (ROZEREM) tablet 8 mg 8 mg oral Nightly PRN risperiDONE (RisperDAL) tablet 2 mg 2 mg oral Nightly 2 mg at 10/11/232150 Continuous Medications Medication Dose Last Rate Physical Exam: General Appearance: Alert, cooperative, confused Head: Normocephalic, without obvious abnormality, atraumatic Eyes: PERRL, conjunctiva/corneas clear, EOM's intact, both eyes, anicteric Neck: Supple, symmetrical, trachea midline, no adenopathy; thyroid: No enlargement/tenderness/nodules; no carotid bruits, No JVD Lungs: Decreased breath sounds bilaterally Cardiovascular: Regular rate and rhythm, S1 and S2 normal, no murmur, rub or gallop Abdomen: Soft, non-tender, bowel sounds active all four quadrants, non-distended Extremities: Extremities normal, no LE edema Skin: Skin color, texture, turgor normal, no rashes, lesions or bruising Neurologic: Alert & oriented person, difficult time with orientation questions Psychosocial: Normal affect and mood Dialysis Access Exam: Lab/Radiology/Diagnostic Review: Recent Labs Lab Units 10/11/23 1704 10/11/23 0720 10/11/23 0443 10/10/23 0744 10/10/23 0501 10/09/23 0744 10/09/23 0714 SODIUM mmol/L -- -- 141 -- 141 -- 144 POTASSIUM PLASMA mmol/L -- -- 3.5 -- 3.9 -- 4.1 CHLORIDE mmol/L -- -- 109 -- 106 -- 110 CO2 mmol/L -- -- 22 -- 20* -- 19* BUN SERUM mg/dL -- -- 65* -- 64* -- 59* CREATININE mg/dL -- -- 4.55* -- 4.68* -- 4.59* [id number] mL/min/1.73 m2 -- -- 10* -- 9* -- 10* GLUCOSE mg/dL -- -- 78 -- 78 -- 90 POC GLUCOSE MONITOR mg/dL 182 < > -- < > -- < > -- CALCIUM mg/dL -- -- 8.3* -- 8.4* -- 8.2* ALBUMIN g/dL -- -- 2.8* -- 3.0* -- 2.7* PHOSPHORUS PLASMA mg/dL -- -- 5.5* -- 5.5* -- 5.8* < > = values in this interval not displayed. Additional Labs: Recent Labs Lab Units 10/10/23 1808 10/08/23 1155 10/06/23 2225 WBC K/cumm 8.9 8.2 9.6 HEMOGLOBIN g/dL 9.6* 8.9* 9.2* HEMATOCRIT % 29.6* 29.0* 29.1* PLATELETS K/cumm 322 311 280 NEUTROS PCT % 71.5 65.1 63.8 LYMPHS PCT % 20.0 26.3 26.8 MONOS PCT % 6.4 6.1 6.0 EOS PCT % 1.5 1.9 2.5 )Assessment/Plan 1. chronic kidney disease: Due to diabetes and hypertension. Stage IV. 2. Hypertension: Adjust blood pressure medicines as needed 3. Edema: Mostly due to pulmonary hypertension and chronic kidney disease. Ongoing diuresis. Expectsome rising creatinine with diuresis. 4. Metabolic acidosis: Due to renal failure. If it goes any lower will need supplementation. DICTATION DISCLAIMER: This note is transcribed using the [employer] direct voice recognition system without human dust control engineer. In an effort to expedite patient care, this note has not been adjusted for typographical, grammatical, and syntax by a trained medical equipment sales. Portions of this note have been copied from the medical record, but edited appropriately to accurately reflect the patient's current clinical state. Jimbo Strauss Office/exchange: [phone] * William Velasquez MD - 10/08/2023 10:45 AM CDT Daily Progress [facility] Cardiology Subjective: She thinks her leg swelling is improved denies any shortness of breath no orthopnea slept well OBJECTIVE: Past Medical History: Diagnosis Date Anemia Arthritis CHF (congestive heart failure) (CMS/HCC) (HCC) Dementia (HCC) Depression Diabetic neuropathy (HCC) GERD (gastroesophageal reflux disease) HL (hearing loss) Hyperlipidemia Hypertension Movement disorder Osteomyelitis (HCC) Renal disorder Schizophrenia (HCC) Type 2 diabetes mellitus (HCC) Family History Problem Relation Age of Onset Diabetes Mother Heart disease Mother Kidney disease Mother Stomach cancer Father Alcohol abuse Father Diabetes Sister Diabetes Sister Diabetes Brother Scheduled Medications Medication Dose Route Frequency amLODIPine (NORVASC) tablet 10 mg 10 mg oral Nightly atorvastatin (LIPITOR) tablet 20 mg 20 mg oral Nightly benztropine (COGENTIN) tablet 1.5 mg 1.5 mg oral BID enoxaparin (LOVENOX) syringe 30 mg 30 mg subcutaneous Daily-2100 famotidine (PEPCID) tablet 10 mg 10 mg oral Daily ferrous sulfate delayed release tablet 65 mg of elemental iron 65 mg of elemental iron oral BID fluticasone propionate (FLONASE) 50 mcg/actuation nasal spray 2 spray 2 spray each nostril Daily furosemide (LASIX) 10 mg/mL injection 40 mg 40 mg intravenous BID DIURETIC insulin glargine (LANTUS, SEMGLEE) 100 unit/mL injection 15 Units 0.25 Units/kg subcutaneous Nightly insulin lispro (HumaLOG, ADMELOG) 100 unit/mL injection 0-10 Units 0-10 Units subcutaneous TID withmeals insulin lispro (HumaLOG, ADMELOG) 100 unit/mL injection 0-5 Units 0-5 Units subcutaneous Nightly insulin lispro (HumaLOG, ADMELOG) 100 unit/mL injection 5 Units 0.083 Units/kg subcutaneous TID with meals risperiDONE (RisperDAL) tablet 2 mg 2 mg oral Nightly Exam: Gen: Comfortable, NAD CVS: RRR, S1, S2 present, HSM GI: Soft Non tender Chest: Air entry reduced CTAB Psych: Appropriate mood and affect Neuro: Alert, oriented, No deficits. Recent Labs Lab Units 10/06/23 2225 WBC K/cumm 9.6 HEMOGLOBIN g/dL 9.2* HEMATOCRIT % 29.1* PLATELETS K/cumm 280 Recent Labs Lab Units 10/08/23 0809 10/08/23 0548 10/08/23 0240 10/07/23 2028 10/07/23 1720 10/07/23 0917 10/06/23 2225 SODIUM mmol/L -- -- -- -- -- -- 139 POTASSIUM PLASMA mmol/L -- -- -- -- -- -- 4.4 CHLORIDE mmol/L -- -- -- -- -- -- 108 CO2 mmol/L -- -- -- -- -- -- 18* ANIONGAP mmol/L -- -- -- -- -- -- 13 GLUCOSE mg/dL -- -- -- -- -- -- 285* POC GLUCOSE MONITOR mg/dL 121 111 78 162 235* < > -- BUN SERUM mg/dL -- -- -- -- -- -- 54* CREATININE mg/dL -- -- -- -- -- -- 4.09* CALCIUM mg/dL -- -- -- -- -- -- 8.0* ALBUMIN g/dL -- -- -- -- -- -- 3.0* ALK PHOS Units/L -- -- -- -- -- -- 154* ALT Units/L -- -- -- -- -- -- 12 AST Units/L -- -- -- -- -- -- 26 BILIRUBIN TOTAL mg/dL -- -- -- -- -- -- 0.2 < > = values in this interval not displayed. Intake/Output Summary (Last 24 hours) at 10/08/2023 1045 Last data filed at 10/08/2023 0925 Gross per 24 hour Intake 240 ml Output -- Net 240 ml Vitals: 10/07/23 2020 10/07/23 2301 10/08/23 0416 10/08/23 0748 BP: (!) 173/70 149/71 126/70 165/72 BP Location: Left arm Patient Position: Lying;HOB 30 degrees Pulse: 81 80 74 77 Resp: Temp: 36.7 ??C (98 ??F) 36.8 ??C (98.2 ??F) 36.8 ??C (98.3 ??F) 36.7 ??C (98 ??F) TempSrc: Oral Oral Oral Oral SpO2: 98% 96% 98% 98% Weight: Height: ASSESSMENT/PLAN: Patient Active Problem List Diagnosis Diabetic neuropathy (HCC) Type 2 diabetes mellitus with diabetic neuropathy, with long-term current use of insulin (HCC) Primary hypertension Amputation of toe of right foot (CMS/HCC) (HCC) Iron deficiency anemia Gastroesophageal reflux disease without esophagitis Mixed hyperlipidemia Schizoaffective disorder, bipolar type (CMS/HCC) (HCC) 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 2 diabetes mellitus ([facility]/HCC) ([facility]) Encounter for Medicare annual wellness exam Late onset Alzheimer's dementia without behavioral disturbance ([facility]) Volume overload Anemia Toe necrosis (CMS/HCC) ([facility]) Physical deconditioning Left leg DVT (HCC) Pulmonary nodule Retention of urine, unspecified Unspecified osteoarthritis, unspecified site Unsteadiness on feet Weakness Parkinsonism (HCC) Wheezing Anemia in stage 4 chronic kidney disease ([facility]) Osteomyelitis of great toe of right foot (CMS/HCC) ([facility]) Abnormal urinalysis Acute kidney injury superimposed on CKD (HCC) Acute on chronic diastolic congestive heart failure (CMS/HCC) ([facility]) Bibasilar consolidations Movement disorder Shortness of breath GI bleed Bandemia Leg swelling Diabetes mellitus with hyperglycemia ([facility]) ([facility]) Dyslipidemia Volume overload - due to CKD stage 4 on IV diuresis as per Nephrology CKD stage IV -nephrology is managing seen by Dr. Cronin Acute on chronic diastolic heart failure - normal LV function on recent echocardiogram Elevated troponin due to renal dysfunction - does not represent ACS - nonischemic MPI recently Essential hypertension -BP stable Diabetes mellitus type 2 Iron deficiency anemia - hemoglobin stable William Velasquez MD, [facility], [facility], [facility] [phone] 10/08/2023 10:45 AM * Mindy William, PT - 10/08/2023 9:24 AM CDT Physical Therapy INITIAL EVALUATION PATIENT'S NAME:Sixto Chakraborty :1950 AGE:72 y.o. ROOM:[facility] [id number] TIME IN: 0945 TIME OUT: 1027 CURRENT DIAGNOSIS AND HOSPITAL COURSE: admitted 10/06/2023 with c/o bilateral leg swelling x 2-3 days. Denies chest pain and SOB. Per chart, family reported in ED that they think she is fluid overloaded. PMH: arthrits, HFpEF, dementia, depression, IDDM with diabetic neuropathy, HLD, HTN, osteomyelitis,CKD stage 5, and schizophrenia. Patient Active Problem List Diagnosis Diabetic neuropathy ([facility]) Type 2 diabetes mellitus with diabetic neuropathy, with long-term current use of insulin ([facility]) Primary hypertension Amputation of toe of right foot ([facility]) ([facility]) Iron deficiency anemia Gastroesophageal reflux disease without esophagitis Mixed hyperlipidemia Schizoaffective disorder, bipolar type ([facility]) ([facility]) 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 2 diabetes mellitus ([facility]) ([facility]) Encounter for Medicare annual wellness exam Late onset Alzheimer's dementia without behavioral disturbance ([facility]) Volume overload Anemia Toe necrosis ([facility]) ([facility]) Physical deconditioning Left leg DVT ([facility]) Pulmonary nodule Retention of urine, unspecified Unspecified osteoarthritis, unspecified site Unsteadiness on feet Weakness Parkinsonism ([facility]) Wheezing Anemia in stage 4 chronic kidney disease ([facility]) Osteomyelitis of great toe of right foot ([facility]) ([facility]) Abnormal urinalysis Acute kidney injury superimposed on CKD ([facility]) Acute on chronic diastolic congestive heart failure ([facility]) ([facility]) Bibasilar consolidations Movement disorder Shortness of breath GI bleed Bandemia Leg swelling Diabetes mellitus with hyperglycemia ([facility]) ([facility]) Dyslipidemia Past Medical History: Diagnosis Date Anemia Arthritis CHF (congestive heart failure) ([facility]) ([facility]) Dementia ([facility]) Depression Diabetic neuropathy ([facility]) GERD (gastroesophageal reflux disease) HL (hearing loss) Hyperlipidemia Hypertension Movement disorder Osteomyelitis ([facility]) Renal disorder Schizophrenia ([facility]) Type 2 diabetes mellitus ([facility]) Past Surgical History: Procedure Laterality Date SECTION Right right foot EYE SURGERY cataracts TOE AMPUTATION Right 01/06/2020 4th toe amp/ foot debridement/ Dr. Anat Pelayo SUBJECTIVE LIVES WITH: daughter LIVING ENVIRONMENT: apartment with level entry. Basement (laundry) the patient does not typically use. Daughter does most of the laundry PRIOR LEVEL OF FUNCTION: independent with all mobility with the use of a str cane (intermittently) EQUIPMENT OWNED: str cane, w/w EQUIPMENT USED: str cane SOCIAL SUPPORTS: 2-daughter, granddaughter, PATIENT/FAMILY GOAL: home at discharge MENTAL STATUS/ORIENTATION: Alert and Oriented to situation, location, and time (month and year whengiven options) OBJECTIVE PRECAUTIONS: fall, bed/chair alarm, and h/o mild dementia (forgetful) APPEARANCE/POSTURE: 72 y/o female standing (while bed alarm is sounding) at bedside trying to turn off the alarm. Pitting edema present in bilateral LE. VITAL SIGNS: Resting BP: 135/65 Post-activity BP: 164/78 Resting heart rate: 85 bpm Post-activity heart rate: 89 bpm Resting O2 sat: 100% on RA Post-activity O2 sat: NT PAIN: Pre-therapy pain level: 0/10 Pain location: n/a Pain intervention: n/a Post-therapy pain level/response to intervention: 0/10 LE ASSESSMENTS: Right LE ROM: WFL Left LE ROM: WFL Right LE strength: 4/5 gross strength Left LE strength: 4/5 gross strength Coordination: not formally assessed Tone: no deficits noted MOBILITY: Bed mobility: supine to sit mod indep Transfers: sit to/from stand with a str cane SBA Ambulation: Distance: 100 ft x 1 Assistive device: straight cane Level of assist: supervision CGA Deviations: patient becomes unsteady with fatigue Stairs: not performed Balance/Special Tests: Static sitting balance: GOOD (EOB) Dynamic sitting balance: GOOD (EOB) Static standing balance: GOOD (supported with a str cane) Dynamic standing balance: GOOD (supported with a str cane) AMPAC: Basic Mobility - 6 Click How much difficulty does the patient have: Turning over in bed: None How much difficulty does the patient currently have: Sitting down and standing up from a chair witharms?: None How much difficulty does the patient have: Moving from lying on back to sitting on the side of the bed?: None How much difficulty does the patient have: Moving to and from a bed to a chair including wheelchair?: None How much help does the patient currently need: Walk in hospital room?: None How much help from another person does the patient currently need: Climbing 3-5 steps with a railing?: None Total 6 Click Score (range 6-24): 24 6 click interpretation: AM-PAC 6 Click scores > 18 = Likely home discharge AM-PAC 6 Click scores < 18 = Likely require inpatient rehab or custodial placement at discharge APPEARANCE/POSTURE (end of session): 72 y/o female sitting in bedside chair with call light and phone within reach. Chair alarm in place and turned on. EDUCATION: therapeutic activity, functional transfer training, gait training , safety , durable medical equipment education, positioning, and role of PT evaluation RESPONSE TO EDUCATION: needs reinforcement and verbalizes understanding ASSESSMENT PROBLEM LIST: impaired balance , decreased mobility , gait instability, decreased endurance, long standing deficits , decreased safety awareness, impulsivity, and impaired cognition BARRIERS TO LEARNING: Physical and Cognitive BARRIERS TO DISCHARGE: Medical complications REHAB POTENTIAL/PROGNOSIS: good PLAN PT Discharge Recommendations this date: PT Recommendation/Plan: Home with family, Home with 24 hour supervision, Home Health PT Patient at high risk for: Falls, Readmission, Injury due to decreased ability to care for self, Injury at home as patient has not returned to prior level of function, Injury due to impaired cognition, Improper use of DME, Injury due to reduced functional status, Injury due to balance deficits, Prolonged dependence for self care tasks Treatment Plan/Interventions: bed mob, transfers, gait training, and HEP PT Frequency during current admission: 3-5x/wk Equipment Recommendations: none Refer to multi-disciplinary care plan section for PT specific goals. If this is the last note, please consider this the discharge summary. Multi-Disciplinary Problems (from Physical Therapy) Active Problems Problem: PT Misc Start Date: 10/08/23 Goal Start Date Expected End Date End Date PT STG - Patient will ambulate 100 ft x 2 with a w/w with mod indep. 10/08/23 10/15/23 -- Goal Start Date Expected End Date End Date PT STG - Patient will perform sit to/from stand with a w/w with mod indep. 10/08/23 10/15/23 -- Goal Start Date Expected End Date End Date PT STG - Patient will tolerate assessment of 1-step on one occasion. 10/08/23 10/15/23 -- Goal Start Date Expected End Date End Date PT STG - Patient will perform HEP mod indep. 10/08/23 10/15/23 -- * Bev Adames MD - 10/08/2023 9:00 AM CDT DAILY PROGRESS NOTE C/C:Swollen legs Interval History: On IV Lasix. No new events SUBJECTIVE: Complaints: Still with swollen legs. No SOB ROS: Slight dizzy on walking with therapytoday OBJECTIVE: Vitals: Temp (24hrs), Av.8 ??C (98.2 ??F), Min:36.7 ??C (98 ??F), Max:36.8 ??C (98.3 ??F) Vitals: 10/07/23 2020 10/07/23 2301 10/08/23 0416 10/08/23 0748 BP: (!) 173/70 149/71 126/70 165/72 BP Location: Left arm Patient Position: Lying;HOB 30 degrees Pulse: 81 80 74 77 Resp: Temp: 36.7 ??C (98 ??F) 36.8 ??C (98.2 ??F) 36.8 ??C (98.3 ??F) 36.7 ??C (98 ??F) TempSrc: Oral Oral Oral Oral SpO2: 98% 96% 98% 98% Weight: Height: LDA: I/O: No intake or output data in the 24 hours ending 10/08/23 0900 Physical Exam General: Up in chair,awake,alert,on RA,NAD SHEENT:Skin warm,dry,no rashes. No icterus,no cyanosis,no pallor,EOMI. Neck:Supple Respi:CTA silverio Cardio:RRR,no murmur GI:Abdomen soft,bowel sounds +,non tender,not distended. Extre: 3+edema legs,no cyanosis,no pallor Neuro:Non focal/Hemiplegia/Paraplegia. Psych:Mood/Affect normal.Behavior normal. Laboratory: Recent Results (from the past 24 hour(s)) POCT glucose Collection Time: 10/07/23 9:17 AM Result Value Ref Range Glucose, POC 175 70 - 199 mg/dL POCT glucose Collection Time: 10/07/23 5:20 PM Result Value Ref Range Glucose, POC 235 (H) 70 - 199 mg/dL POCT glucose Collection Time: 10/07/23 8:28 PM Result Value Ref Range Glucose, POC 162 70 - 199 mg/dL POCT glucose Collection Time: 10/08/23 2:40 AM Result Value Ref Range Glucose, POC 78 70 - 199 mg/dL POCT glucose Collection Time: 10/08/23 5:48 AM Result Value Ref Range Glucose, POC 111 70 - 199 mg/dL POCT glucose Collection Time: 10/08/23 8:09 AM Result Value Ref Range Glucose, POC 121 70 - 199 mg/dL Radiology: Scheduled Medications: amLODIPine, 10 mg, oral, Nightly atorvastatin, 20 mg, oral, Nightly benztropine, 1.5 mg, oral, BID enoxaparin, 30 mg, subcutaneous, Daily-2099 famotidine, 10 mg, oral, Daily ferrous sulfate, 65 mg of elemental iron, oral, BID fluticasone propionate, 2 spray, each nostril, Daily furosemide, 40 mg, intravenous, BID DIURETIC insulin glargine, 0.25 Units/kg, subcutaneous, Nightly insulin lispro, 0-10 Units, subcutaneous, TID with meals insulin lispro, 0-5 Units, subcutaneous, Nightly insulin lispro, 0.083 Units/kg, subcutaneous, TID with meals risperiDONE, 2 mg, oral, Nightly Current Facility-Administered Medications: acetaminophen (TYLENOL) tablet 650 mg, 650 mg, oral, Q6H PRN, Rosa Jade, JARAD amLODIPine (NORVASC) tablet 10 mg, 10 mg, oral, Nightly, Gemma Jolly MD atorvastatin (LIPITOR) tablet 20 mg, 20 mg, oral, Nightly, Rosa Jade, JARAD, 20 mg at 10/07/232113 benztropine (COGENTIN) tablet 1.5 mg, 1.5 mg, oral, BID, Rosa Jade, JARAD, 1.5 mg at 10/08/23 0810 dextrose oral liquid liquid 15 g, 15 g, oral, Q15 Min PRN OR dextrose (D10W) 10% bolus 250 mL, 250 mL, intravenous, Q15 Min PRN, Rosa Jade, JARAD enoxaparin (LOVENOX) syringe 30 mg, 30 mg, subcutaneous, Daily-2099, Guera Guillaume MD, 30 mg at 10/07/232114 famotidine (PEPCID) tablet 10 mg, 10 mg, oral, Daily, Rosa Jade, JARAD, 10 mg at 10/08/23 0810 ferrous sulfate delayed release tablet 65 mg of elemental iron, 65 mg of elemental iron, oral, BID,Rosa Jade, JARAD, 65 mg of elemental iron at 10/08/23 0810 fluticasone propionate (FLONASE) 50 mcg/actuation nasal spray 2 spray, 2 spray, each nostril, Daily, Rosa Jade NP, 2 spray at 10/08/23 0810 furosemide (LASIX) 10 mg/mL injection 40 mg, 40 mg, intravenous, BID DIURETIC, Rosa Jade NP,40 mg at 10/08/23 0810 glucagon injection 1 mg, 1 mg, intramuscular, Q30 Min PRN, Rosa Jade NP insulin glargine (LANTUS, SEMGLEE) 100 unit/mL injection 15 Units, 0.25 Units/kg, subcutaneous, Nightly, Rosa Jade NP, 15 Units at 10/07/232114 insulin lispro (HumaLOG, ADMELOG) 100 unit/mL injection 0-10 Units, 0-10 Units, subcutaneous, TID with meals, Rosa Jade NP, 4 Units at 10/07/23 172 insulin lispro (HumaLOG, ADMELOG) 100 unit/mL injection 0-5 Units, 0-5 Units, subcutaneous, Nightly, Rosa Jade NP, 1 Units at 10/07/232120 insulin lispro (HumaLOG, ADMELOG) 100 unit/mL injection 5 Units, 0.083 Units/kg, subcutaneous, TID with meals, Rosa Jade NP, 5 Units at 10/08/23 0811 ondansetron (ZOFRAN) injection 4 mg, 4 mg, intravenous, Q6H PRN, Rosa Jade NP risperiDONE (RisperDAL) tablet 2 mg, 2 mg, oral, Nightly, Rosa Jade NP, 2 mg at 10/07/232113 Continuous Medications: PRN Medications: acetaminophen dextrose OR dextrose glucagon ondansetron Hospital course: 72 y.o. female with a PMHx significant for Arthritis, HFpEF, Dementia, Depression, Diabetic neuropathy, HLD, HTN, Osteomyelitis, CKD IV, Schizophrenia, and IDDM. Presents to the ED with a chief complaint of lower extremity edema. ASSESSMENT/PLAN: All diagnoses were present on admission unless otherwise stated. Principal Problem: Acute on chronic diastolic heart failure with Bilateral lower extremity edema -EF 65%, moderate pulmonary hypertension, mild tricuspid regurg by TTE November 2022 -volume overload likely secondary to advanced CKD -diuretics stopped outpatient due to worsening renal function -nephro managing diuresis, continue with IV Lasix 40 mg b.i.d. -apply Jerzy hose -daily weights, sodium restricted diet, fluid restriction Consulted Cardiology Active problems: STEFANO on CKD 4: BUN 54, creatinine 4.09, GFR 11 -baseline CKD 4 with a creatinine about 2.12 2.4 with advancement of disease since June, last check creatinine 3.6, BUN 48, GFR 13 in July 2023 -Consulted nephrology, following, managing diuresis -renal diet, fluid restriction -monitor electrolytes Cr still 4.46 Uncontrolled insulin-dependent type 2 diabetes with hyperglycemia Diabetic neuropathy -basal/bolus/SSI, a.c. and HS glucose checks, consistent carb diet -not currently on gabapentin, likely secondary to advanced CKD BS 180-200 Hypertension, uncontrolled Will switch amlodipine to BB due to edema -monitor with IV diuresis with Lasix Vital signs per floor routine Anemia of chronic CKD -stable trend, no evidence of acute blood loss, monitor -continue ferrous sulfate at home dose GERD -continue famotidine HLD -continue atorvastatin at home dose Schizoaffective disorder/Dementia, Depression -continue risperidone, benztropine at home dose These fluid and electrolyte abnormalities are being treated, evaluated or monitored: Chronic NAGMA: From renal disease . Stable. Will monitor closely DVT Prophylaxis with SQ Lovenox Code status: Full code D/W RN Medical Decision Making complexity: Moderate Expected date of discharge:Likely Thursday Barriers to discharge:Still edematous. Discharge disposition:Home Bev Adames MD 10/08/2023 9:00 AM [facility] [place] * Anil Wong MD - 10/07/2023 12:49 PM CDT Patient was seen and examined. Impression: CKD-4 Edema/fluid excess H/o DM HTN Plan: Will admit pt for IV diuretic therapy. Thanks * Anat Steele, [facility] - 10/07/2023 10:39 AM CDT Pharmacy Medication Reconciliation Note Patient Sixto Chakraborty is a 72 y.o. female who presents to [facility] ED[facility] for admission. The prior to admission home medication list was reviewed by pharmacy. No current facility-administered medications for this encounter. Current Outpatient Medications: amLODIPine (NORVASC) 10 mg tablet, Take 1 tablet (10 mg total) by mouth nightly, Disp: , Rfl: atorvastatin (LIPITOR) 20 mg tablet, Take 1 tablet (20 mg total) by mouth nightly, Disp: 90 tablet,Rfl: 0 famotidine (PEPCID) 10 mg tablet, Take 1 tablet (10 mg total) by mouth daily, Disp: , Rfl: ferrous sulfate 325 mg (65 mg of elemental iron) tablet, Take 1 tablet (65 mg of elemental iron total) by mouth 2 (two) times a day, Disp: , Rfl: fluticasone propionate (FLONASE) 50 mcg/actuation nasal spray, Administer 2 sprays into each nostril daily, Disp: 1 each, Rfl: 0 insulin lispro (HumaLOG, ADMELOG) 100 unit/mL vial for injection, Inject 4 Units under the skin 3 (three) times a day before meals Gets 4 units at baseline then 1 unit for every 50 over 150, Disp: , Rfl: LANTUS 100 unit/mL (3 mL) pen for injection, Inject 18 Units under the skin nightly, Disp: 30 mL, Rfl: 3 risperiDONE (RisperDAL) 2 mg tablet, Take 1 tablet (2 mg total) by mouth nightly, Disp: , Rfl: acetaminophen (TYLENOL) 325 mg tablet, Take 2 tablets (650 mg total) by mouth every 6 (six) hours as needed for pain, Disp: 30 tablet, Rfl: 1 benztropine (COGENTIN) 1 mg tablet, Take 1.5 tablets (1.5 mg total) by mouth nightly (Patient taking differently: Take 1.5 tablets (1.5 mg total) by mouth 2 (two) times a day), Disp: 45 tablet, Rfl: 0 blood-glucose sensor (FreeStyle Madhav 3 Sensor) device, Use for continuous glucose monitoring. Change sensor every 14 days, Disp: 6 each, Rfl: 3 flash glucose scanning reader [facility], Use Madhav 3 reader to scan Madhav 3 sensor, Disp: 1 each, Rfl: 0 flash glucose sensor (FreeStyle Madhav 2 Sensor) kit, Use to continually monitor glucose, change every 14 days, Disp: 6 kit, Rfl: 3 lidocaine (ASPERCREME) 4 % adhesive patch,medicated, Place 1 patch on the skin daily as needed to lower back, Disp: , Rfl: pen needle, diabetic 32 gauge x 5/32 needle, 1 Units 4 (four) times a day, Disp: 100 each, Rfl: 3 The patient???s home medication list has been reconciled and updated as follows: - Orders from medication that were removed because the patient is no longer taking: none - Orders that the patient is taking at home were added to the home medication list: Risperidone 2mg nightly Famotidine 10mg qam - Orders on the medication list that the patient is taking differently (doses/frequency/formulation): Amlodipine is 10mg hs Humalog is 4 units tid with meals plus sliding scale of 1 unit for every 50 over 150. Ferrous sulfate bid - Additional comments/recommendations: Discussed with patient's daughterHoney Sources of information for this medication reconciliation include: family member and prescription fill history Anat Steele RPh 10/07/2023 10:37 AM documented in this encounter H&P Notes * Rosa Jade NP - 10/07/2023 1:08 PM CDT History and Physical Date of Service: 10/07/2023 Primary Care Physician: Duane Corcoran MD [phone] SUBJECTIVE: Patient is a 72 y.o. female with a PMHx significant for Arthritis, HFpEF, Dementia, Depression, Diabetic neuropathy, HLD, HTN, Osteomyelitis, CKD IV, Schizophrenia, and IDDM. Presents to the ED with a chief complaint of lower extremity edema. HPI: Added to the emergency department on October 06, 2023 from home where she lives with her daughter with lower extremity swelling. Pt history obtained from review of medical records in [facility] and interviewwith patient. A/O x 2-3. Patient has had worsening lower extremity edema over the last several days. Associated facial swelling, denies abdominal swelling. Denies SOB or CP. Has pain in her feet from neuropathy. Diuretics were stopped last year due to worsening renal function. Patient has been consuming a lot of salty popcorn. No other dietary changes. Walks with a cane at baseline. Independent with ADLs. Reports medication compliance. Afebrile on ED arrival, hypertensive. Lab significant for STEFANO on CKD 4, normal gap acidosis, hyperglycemia, elevated BNP, stable anemia. EKG sinus rhythm. ED treatment includes 40mg IV lasix. Nephro requested admission for IV diuresis. Past Medical History: Diagnosis Date Anemia Arthritis CHF (congestive heart failure) ([facility]) ([facility]) Dementia ([facility]) Depression Diabetic neuropathy ([facility]) GERD (gastroesophageal reflux disease) HL (hearing loss) Hyperlipidemia Hypertension Movement disorder Osteomyelitis (HCC) Renal disorder Schizophrenia ([facility]) Type 2 diabetes mellitus ([facility]) Past Surgical History: Procedure Laterality Date SECTION Right right foot EYE SURGERY cataracts TOE AMPUTATION Right 01/06/2020 4th toe amp/ foot debridement/ Dr. Anat Pelayo (Not in a hospital admission) No Known [...] Systems: Review of Systems Constitutional: Negative for chills, diaphoresis, fatigue and fever. HENT: Negative for congestion, ear pain, hearing loss, sinus pressure, sore throat and tinnitus. Eyes: Negative for pain and discharge. Respiratory: Negative for apnea, cough, chest tightness, shortness of breath and wheezing. Cardiovascular: Positive for leg swelling. Negative for chest pain and palpitations. Gastrointestinal: Negative for abdominal distention, abdominal pain, constipation, diarrhea, nauseaand vomiting. Endocrine: Negative for polydipsia, polyphagia and polyuria. Genitourinary: Negative for dysuria, hematuria and urgency. Musculoskeletal: Negative for arthralgias, back pain and myalgias. Skin: Negative for rash and wound. Allergic/Immunologic: Negative for food allergies. Neurological: Negative for dizziness, tremors, seizures, syncope, weakness, light-headedness and headaches. Hematological: Negative for adenopathy. Psychiatric/Behavioral: Negative for confusion and hallucinations. The patient is not nervous/anxious. OBJECTIVE: Vitals: Arrival Vitals [10/06/23 1555] Temp 36.4 ??C (97.5 ??F) Pulse 90 Resp 20 BP (!) 188/69 SpO2 98 % Temp src Heart Rate Source Patient Position BP Location FiO2 (%) Most Recent : Vitals: 10/07/23 0900 10/07/23 1100 10/07/23 1400 10/07/23 1505 BP: 159/67 (!) 174/71 (!) 181/90 (!) 175/86 Pulse: 66 72 87 80 Resp: 14 20 20 20 Temp: SpO2: 95% 96% 100% 100% Weight: Height: No intake/output data recorded. No intake/output data recorded. Physical Exam: Physical Exam Vitals reviewed. Constitutional: General: She is not in acute distress. Appearance: She is well-developed. She is not diaphoretic. HENT: Head: Normocephalic and atraumatic. Eyes: Pupils: Pupils are equal, round, and reactive to light. Neck: Thyroid: No thyromegaly. Vascular: No JVD. Trachea: No tracheal deviation. Cardiovascular: Rate and Rhythm: Normal rate and regular rhythm. Heart sounds: Normal heart sounds. No murmur heard. No friction rub. Pulmonary: Effort: Pulmonary effort is normal. No respiratory distress. Breath sounds: Normal breath sounds. No wheezing or rales. Chest: Chest wall: No tenderness. Abdominal: General: Bowel sounds are normal. There is no distension. Palpations: Abdomen is soft. There is no mass. Tenderness: There is no abdominal tenderness. There is no guarding. Musculoskeletal: General: Normal range of motion. Cervical back: Normal range of motion and neck supple. Right lower le+ Edema present. Left lower le+ Edema present. Lymphadenopathy: Cervical: No cervical adenopathy. Skin: General: Skin is warm and dry. Capillary Refill: Capillary refill takes less than 2 seconds. Findings: No rash. Neurological: Mental Status: She is alert and oriented to person, place, and time. Psychiatric: Behavior: Behavior normal. Lab/Radiology/Diagnostic Review: Recent Results (from the past 24 hour(s)) CBC with auto differential Collection Time: 10/06/23 10:25 PM Result Value Ref Range WBC 9.6 3.8 - 9.9 K/cumm Hgb 9.2 (L) 11.9 - 15.5 g/dL Hct 29.1 (L) 35.6 - 45.5 % Plt 280 150 - 400 K/cumm MPV 10.8 9.1 - 12.3 fL RBC 3.05 (L) 3.90 - 5.20 M/cumm MCV 95.4 81.3 - 96.4 fL MCH 30.2 27.1 - 33.3 pg MCHC 31.6 (L) 32.3 - 35.7 g/dL RDW CV 15.3 (H) 11.1 - 14.9 % RDW SD 53.2 (H) 35.7 - 48.1 fL NRBC abs 0.00 0.00 - 0.01 K/cumm Comprehensive metabolic panel Collection Time: 10/06/23 10:25 PM Result Value Ref Range Sodium 139 135 - 145 mmol/L Potassium, pl 4.4 3.3 - 4.9 mmol/L Chloride 108 97 - 110 mmol/L CO2 18 (L) 22 - 32 mmol/L Anion gap 13 2 - 15 mmol/L BUN 54 (H) 6 - 25 mg/dL Creatinine 4.09 (H) 0.60 - 1.10 mg/dL Glucose 285 (H) 70 - 199 mg/dL Calcium 8.0 (L) 8.5 - 10.3 mg/dL Bilirubin, total 0.2 0.1 - 1.2 mg/dL Protein, pl 6.9 6.5 - 8.5 g/dL Albumin 3.0 (L) 3.5 - 5.0 g/dL Alk phos 154 (H) 40 - 130 Units/L ALT 12 7 - 45 Units/L AST 26 10 - 45 Units/L Pro B-type natriuretic peptide Collection Time: 10/06/23 10:25 PM Result Value Ref Range NT-proBNP 607 (H) <=300 pg/mL Differential, auto Collection Time: 10/06/23 10:25 PM Result Value Ref Range Neutrophil abs 6.1 1.5 - 6.5 K/cumm Imm gran abs 0.0 0.0 - 0.1 K/cumm Lymphocyte abs 2.6 0.8 - 3.3 K/cumm Monocyte abs 0.6 0.2 - 0.8 K/cumm Eosinophil abs 0.2 0.0 - 0.5 K/cumm Basophil abs 0.1 0.0 - 0.1 K/cumm Neutrophil pct 63.8 % Imm gran pct 0.4 % Lymphocyte pct 26.8 % Monocyte pct 6.0 % Eosinophil pct 2.5 % Basophil pct 0.5 % eGFR Collection Time: 10/06/23 10:25 PM Result Value Ref Range eGFR 11 (L) >=60 mL/min/1.73 m2 Troponin T high-sensitivity series (baseline, 2hr, 4hr, 6hr) Collection Time: 10/07/23 1:59 AM Result Value Ref Range Trop T hs 38 (H) <=14 ng/L Troponin T high-sensitivity 2-hour Collection Time: 10/07/23 4:39 AM Result Value Ref Range Trop T hs 41 (H) <=14 ng/L Trop T hs delta 3 ng/L Trop T hs interp Insignificant POCT glucose Collection Time: 10/07/23 9:17 AM Result Value Ref Range Glucose, POC 175 70 - 199 mg/dL ECG 12 lead Result Date: 10/07/2023 Narrative: Vent Rate: 74 bpm RR Interval: 801 msec OK Interval: 163 msec QRS Duration: 72 msec QT Interval: 389 msec QTC Interval: 417 msec P-R-T [place]: 62 - 20 - 207 degrees IMPRESSION: SINUS RHYTHM NONSPECIFIC T-WAVE ABNORMALITY Electronically Signed By: Ilan Ghotra MD, [facility] I have personally reviewed above laboratory findings, chest imaging, and diagnostic tests. ASSESSMENT/PLAN: Principal Problem: Acute on chronic diastolic congestive heart failure (CMS/HCC) ([facility]) Active Problems: Diabetic neuropathy (HCC) Type 2 diabetes mellitus with diabetic neuropathy, with long-term current use of insulin (HCC) Primary hypertension Gastroesophageal reflux disease without esophagitis Mixed hyperlipidemia Schizoaffective disorder, bipolar type (CMS/HCC) (HCC) Anemia in stage 4 chronic kidney disease (HCC) Acute kidney injury superimposed on CKD (HCC) Leg swelling Acute on chronic diastolic heart failure Bilateral lower extremity edema -chest x-ray clear, no shortness a breath -elevated BNP -EF 65%, moderate pulmonary hypertension, mild tricuspid regurg by TTE November 2022 -volume overload likely secondary to advanced CKD -diuretics stopped outpatient due to worsening renal function -nephro managing diuresis, continue with IV Lasix 40 mg b.i.d. -apply Jerzy hose -daily weights, sodium restricted diet, fluid restriction STEFANO on CKD 4: BUN 54, creatinine 4.09, GFR 11 -baseline CKD 4 with a creatinine about 2.12 2.4 with advancement of disease since June, last check creatinine 3.6, BUN 48, GFR 13 in July 2023 -nephro following, managing diuresis -renal diet, fluid restriction -monitor electrolytes Uncontrolled insulin-dependent type 2 diabetes with hyperglycemia Diabetic neuropathy -basal/bolus/SSI, a.c. and HS glucose checks, consistent carb diet -not currently on gabapentin, likely secondary to advanced CKD Hypertension, uncontrolled -continue amlodipine at home dose -monitor with IV diuresis with Lasix Vital signs per floor routine Anemia of chronic CKD -stable trend, no evidence of acute blood loss, monitor -continue ferrous sulfate at home dose GERD -continue famotidine HLD -continue atorvastatin at home dose Schizoaffective disorder -continue risperidone, benztropine at home dose These fluid and electrolyte abnormalities are being treated, evaluated or monitored: Chronic metabolic acidosis from renal disease DVT ppx - lovenox Full Code All diagnosis present on admission unless otherwise specified. ESTIMATED LENGTH OF STAY: >2 midnights My total encounter time on 10/07/2023 was 37 minutes which was spent in the activities documented inthe note. This includes time spent prior to the visit and after the visit in direct care of the patient. This time does not include time spent in any separately reportable services. Voice recognition software [employer] was used dictate and transcribe this document. Washing Machine Loader variances may occur. Despite proofreading, typographical errors may occur. Rosa Jade NP 10/07/2023 3:50 PM Cosigned by Gemma Jolly MD at 10/07/2023 8:41 PM CDT Associated attestation - Gemma Jolly MD - 10/07/2023 8:41 PM CDT I personally performed a substantive portion of this patient's encounter along with the nurse practitioner. I have reviewed the history, exam and plan. Requested CK. PT/OT. Fish Bailer /delinquency prevention social worker consult. I spent 39 minutes of non-overlapping independent time managing the patient. documented in this encounter Consult Notes * Celsa Rollins - 10/19/2023 1:39 PM CDT Dialysis Navigator: Clinic Acceptance OPHD Clinic: [place] [phone] This is the closest clinic to accept the patient. I will have to reach out to the patients daughterto ask if she will accept. Patient will need a sitter Schedule Thursday Arrive: 12:00 pm On-Time: 12:35 p.m. Welcome Letter to be delivered. Patient can Start October 31 if daughter accepts Please contact me with any questions. Keaton [facility] [phone] * Celsa Rollins - 10/19/2023 10:33 AM CDT Dialysis Navigator: Currently working on OPHD placement for patient. Patient has been denied placement at [facility] and [facility] Please call with questions. Keaton [facility] [phone] * ArnoldledyCelsa - 10/16/2023 9:07 AM CDT Dialysis Navigator: Notified of patient new to HD, requiring OPHD placement. Spoke with pt daughter, EYAD obtained, referral sent. Will update CM/SW once confirmed OPHD schedule obtained. Please call with questions. Celsa Rollins, [facility] [phone] * Deepti Sands MD - 10/13/2023 11:49 AM CDTAssociated Order(s): IP CONSULT TO PSYCHIATRY Images from the original note were not included. Telepsychiatry Consult Note Note entered at: 11:50 AM Patient Name: Sixto Chakraborty Date of : 1950 Medical Record: [id number] Name: Sixto Chakraborty : 1950 Date and Time: 10/13/2023 11:52:16 AM Location of the patient: [facility] IP Location of the doctor: [place] Length of consult: 60 min This evaluation was conducted via video telepsychiatry with the assistance of onsite staff Reason for consult: Initial Requested by: Nemo Garsia History of Present Illness: 72 yo female with h/o schizoaffective disorder and dementia admitted 10/07/23 for CHF. Psychiatry consult is requested for medication eval. Pt is currently on Risperdal 2mgqhs but has been off meds x 1 year. Was restarted on Risperdal about a month prior to admission. 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 Nursing reports pt has been aggressive with staff and hallucinating. Pt is unable to give much history. Seems to be confused where my voice is coming from. She is able to tell me she feels good and that she has diabetes. She knows she is in the hospital because her legs were swollen. Knows the month is September. Says the year is 2022. Pt says her mood is tired, run down . When asked about hearing voices, she says not really . Says she sees people who she doesn't know. Denies any thoughts about . Collateral from daughter obtained. She reports pt has long h/o schizophrenia. Says pt has never been violent. Would talk to self and sometimes felt things had been stolen. Never previously had VH. Says pt was hospitalized last year and taken off Risperdal due to weight gain and sedation. Was doingwell until about a month ago when pt became very worried about great grandson (1.5 years old, used to live with pt and daughter but recently moved out). Started to call police because she thought he had been kidnapped. Was restarted on Risperdal 2mg qhs and daughter felt she was more confused. Jarrell also started having visions . Seems like her hands were stuck and her words sounded like her tongue was stuck to the roof of her mouth. Does admit that Risperdal has caused her tremor in the past. Daughter and I discussed treatment options including changing the Risperdal to another antipsychotic. Daughter would like to try lower dose of Risperdal. In the past pt has had increased confusion with medicine changes. Collateral Contacted: Yes Collateral name: Areli Gayle Collateral 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: [phone] Collateral relationship to the patient: daughter Sleep issues?: No Psychiatric History/Treatment History: Past diagnoses: schizoaffective disorder Hospitalizations: Yes Description: 1996 or 1997 [facility] Current Treatment:No Suicide Assessment: PSS-3: 1) Over the past 2 weeks have you felt down, depressed or hopeless? No 2) Over the past 2 weeks have you had thoughts of killing yourself? No 3) Have you ever in your life attempted to kill yourself? No Within the past 6 months? [facility] Safety Assessment: Risk Factors Stressors: Attempts/Self-injury: No Impulsivity:Yes Description: Drug/Alcohol History:No Trauma History:Unknown-NA Access to firearms:No HI/Violence/Property destruction:Yes Description: when confused Legal: No Family Psych History:Yes Description: F -> alcoholic Family History of suicide:Unknown-NA Protective Factors: Can handle stress well? Unknown-NA Moravian? Unknown-NA External: Social supports/ Therapeutic relationships: Unknown-NA Relationship history: , 2 daughters, 1 son Living situation: lives with daughter Employment: No Education: unknown Responsibility to family/children/work: Unknown-NA Future orientation:Unknown-NA Health History: Medical History: Patient Active Problem List Diagnosis Diabetic neuropathy ([facility]) Type 2 diabetes mellitus with diabetic neuropathy, with long-term current use of insulin ([facility]) Primary hypertension Amputation of toe of right foot ([facility]) ([facility]) Iron deficiency anemia Gastroesophageal reflux disease without esophagitis Mixed hyperlipidemia Schizoaffective disorder, bipolar type ([facility]) ([facility]) 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 2 diabetes mellitus ([facility]) ([facility]) Encounter for Medicare annual wellness exam Late onset Alzheimer's dementia without behavioral disturbance ([facility]) Volume overload Anemia Toe necrosis ([facility]) ([facility]) Physical deconditioning Left leg DVT ([facility]) Pulmonary nodule Retention of urine, unspecified Unspecified osteoarthritis, unspecified site Unsteadiness on feet Weakness Parkinsonism ([facility]) Wheezing Anemia in stage 4 chronic kidney disease ([facility]) Osteomyelitis of great toe of right foot ([facility]) ([facility]) Abnormal urinalysis Acute kidney injury superimposed on CKD ([facility]) Acute on chronic diastolic congestive heart failure ([facility]) ([facility]) Bibasilar consolidations Movement disorder Shortness of breath GI bleed Bandemia Leg swelling Diabetes mellitus with hyperglycemia ([facility]) ([facility]) Dyslipidemia Alzheimer's dementia ([facility]) Medications & Freq: Scheduled Meds:amLODIPine, 10 mg, oral, Daily atorvastatin, 20 mg, oral, Nightly benztropine, 1.5 mg, oral, BID enoxaparin, 30 mg, subcutaneous, Daily-2100 famotidine, 10 mg, oral, Daily ferrous sulfate, 65 mg of elemental iron, oral, BID fluticasone propionate, 2 spray, each nostril, Daily [Held by Provider] furosemide, 40 mg, intravenous, BID DIURETIC insulin glargine, 0.25 Units/kg, subcutaneous, Nightly insulin lispro, 0-10 Units, subcutaneous, TID with meals insulin lispro, 0-5 Units, subcutaneous, Nightly insulin lispro, 0.083 Units/kg, subcutaneous, TID with meals metoprolol tartrate, 25 mg, oral, BID risperiDONE, 2 mg, oral, Nightly Continuous Infusions: PRN Meds:. acetaminophen dextrose OR dextrose glucagon ondansetron ramelteon Allergies: No Known Allergies Mental Status Exam: Appearance and Attire: Normal Psychomotor agitation: Tremor Attitude and behavior: Cooperative, Not responding to internal stimuli Speech: Slow, Soft Mood: tired, worn out Affect: Restricted Thought process: Circumstantial, Vague, Loose or idiosyncratic associations Thought content: No suicidal ideation, No homicidal ideation, No delusions Perception: No auditory hallucinations, Visual hallucinations Intel: Average Abstract: [place] Language: No abnormality Orientation: Oriented to person, Oriented to place Sense: Distractible Knowledge: Appropriate for education and socioeconomic status Memory: unable to assess Insight: Lack of awareness of problems, Moderate impairment Judgement: Moderate impairmentImpaired in responses to current situation and behavior Gait: not tested Impression/Risk Assessment: Current Suicide Risk Elevated? No Current Violence Risk Elevated? Yes Description: when confused Issues with ability to care for self? Yes Summary: 72 yo female with h/o schizoaffective disorder and dementia admitted 10/07/23 for CHF. Psychiatry consult is requested for medication eval. Pt is currently on Risperdal 2mg qhs but has been off meds x 1 year. Was restarted on Risperdal about a month prior to admission. In the past there hasbeen concern for drug-induced Parkinsonism which is treated with Cogentin. Daughter feels she is more confused on Risperdal and asks to try lower dose prior to medications change. Diagnosis: F03.91 Unspecified dementia with behavioral disturbance, F25.9 Schizoaffective disorder,unspecified CPT Codes: 69382 - Psychiatric Diagnostic Evaluation with Medical Services Treatment Plan: General: - Decrease Risperdal to 1mg qhs. - Olanzapine 2.5mg po or IM PRN psychosis or agitation - Consider decrease in Cogentin as this may increase confusion. Level of Care: Pt does not require inpt psych. Psychiatric Clearance: No Observation level - 1:1 needed?: Yes Notes: or per unit protocol for dementia Pharmacological: see above Patient psychotic?No Therapy: supportive Follow up needed while in the hospital?: Yes Follow up Frequency: 24hr Discussed plan with onsite steam and gas turbine assembler: Yes Who QMHP Other: * Sara Thornton, OT - 10/13/2023 9:28 AM CDT Images from the original note were not included. OCCUPATIONAL THERAPY NOTE / SESSION TYPE: Initial Evaluation Patient Name: Sixto Chakraborty Date of : 1950 Age / Sex: 72 y.o. / female Room: [place] [address] Admit Date: 10/06/2023 Date of Service: 10/13/23 Time In: 1118 Time Out: 1141 Primary Diagnosis: Acute on chronic diastolic congestive heart failure (CMS/HCC) (HCC) CURRENT DIAGNOSIS AND HOSPITAL COURSE: admitted 10/06/2023 with c/o bilateral leg swelling x 2-3 days. Denies chest pain and SOB. Per chart, family reported in ED that they think she is fluid overloaded. PMH: arthrits, HFpEF, dementia, depression, IDDM with diabetic neuropathy, HLD, HTN, osteomyelitis,CKD stage 5, and schizophrenia. Past Medical History: Diagnosis Date Anemia Arthritis [...] toe amp/ foot debridement/ Dr. Anat Pelayo Precautions (Including Weight-Bearing): fall, workplace violence risk, elopement, sitter present Caregiver Present for Session (Yes or No): No SUBJECTIVE: Patient Comment: I feel stiff Pain Assessment: Pre-therapy pain level: 0 / 10 Pain location: No pain - Location N/A Pain intervention(s): No pain - Intervention N/A Post-therapy pain level: 0 / 10 Pain scale used: 0-10 SCALE Prior Living Environment and Level of Function: LIVES WITH: daughter LIVING ENVIRONMENT: apartment with level entry. Basement (laundry) the patient does not typically use. Daughter does most of the laundry. PRIOR LEVEL OF FUNCTION: independent with all mobility with the use of a str cane (intermittently),tub-shower combo EQUIPMENT OWNED: str cane, w/w EQUIPMENT USED: str cane SOCIAL SUPPORTS: 2-daughter, granddaughter, PATIENT/FAMILY GOAL: home at discharge OBJECTIVE: Appearance: Presentation upon OT arrival: Patient Supine Presentation upon OT departure: Patient Sitting in bedside recliner Bed / chair alarm in place and activated upon OT departure: None Observed Call light within arms reach of patient at end of session: Yes Completed patient handoff and notified TANBARK LABORER / RN, name: Homer, of patient's location and functional status upon completion of session Vital Signs: Pt with no complaints of dizziness, lightheadedness or SOB. Cognitive / Perceptual Assessment: A&Ox conversation, single step command follow 100%, pleasant, cooperative , delayed processing UE ROM / Strength / Coordination: (A)ROM - Right: WFL Strength - Right: 4/5 (A)ROM - Left: WFL Strength - Left: 4/5 Hand Dominance: Right Clinical Nursing Coordinator Strength (Right): good Clinical Nursing Coordinator Strength (Left): good Right Serial Opposition: Intact Left Serial Opposition: Intact Balance: Static sitting balance: good Dynamic sitting balance: good Static standing balance: good- Dynamic standing balance: Mobility / Transfers: Bed mobility (Components & Assistance): Supine</>sit sba Transfer(s): sit>stand sba, Bed</>chair stand pivot transfer sba Activities of Daily Living / Living Skills: UE dressing: sba to don gown as robe Lower Body Dressing: sba to doff/don socks/underwear Other: ASSESSMENT: Rehab Potential (Prognosis): good Problem List: Patient has impairments including: Decreased UE strength, Decreased balance, Decreased mobility, Decreased endurance, and Decreased ADL independence. Barriers to Discharge: none PLAN: OT Discharge Recommendations this date: OT RECOMMENDATIONS: OT Recommendation: Home with 24 hour supervision Patient at risk for: Additional recommendation comments: Justification of discharge recommendations flow sheet completed: Yes Frequency of therapy:OT Frequency during current admission: 3-5x/wk Intervention / Education needs: ADL training, Balance activities, Functional transfer training, Safety education, Precautions education, Pursed lip breathing / Relaxation techniques, and Energy conservation techniques Education provided: Patient has been educated on Role of OT, OT plan of care, and ADL training. Individual(s) verbalized understanding. Short Term Goals / Care Plan: Multi-Disciplinary Problems (from Occupational Therapy) Active Problems Problem: OT Misc Start Date: 10/13/23 Goal Start Date Expected End Date End Date OT STG - Misc 1 10/13/23 10/20/23 -- Goal Details: Patient will complete grooming, 2 tasks with sba one time. Goal Start Date Expected End Date End Date OT STG - Misc 2 10/13/23 10/20/23 -- Goal Details: Patient will complete ambulatory toilet transfer with sba one time. Goal Start Date Expected End Date End Date OT STG - Misc 3 10/13/23 10/20/23 -- Goal Details: Patient will complete HEP with sba one time to increase tolerance for ADL's. Goal Start Date Expected End Date End Date OT STG - Misc 4 10/13/23 10/20/23 -- Goal Details: Patient will complete UE/LE dress with high/low item retrieval with sba one time. If this is the last note, consider this the discharge summary. Sara Mcdonnell??maris Thornton OTR/Nadine 10/13/23 * Nemo Garsia RN - 10/12/2023 8:26 PM CDTAssociated Order(s): CONSULT TO BEHAVIORAL HEALTH [facility] Behavioral Health Integration ([facility]) [facility] Consult Note - Telepsychiatry Request Date: 10/12/2023 Patient Name: Sixto Chakraborty Medical Record: [id number] Date of : 1950 [facility] consult ordered by Homer Pavon RN for medication evaluation . Patient with depression, dementia, and schizophrenia was admitted to the hospital for edema in her lower extremities. During her hospitalization, she has experienced confusion and agitation, requiring Zyprexa. A consult to Psychiatry has already been entered by provider. [facility] will notify Psychiatry. Per EMR, patient has not expressed any thoughts of harming self or others. C-SSRS risk upon admission was no risk At 2033 [facility] entered a inpatient urgent video consult, which has a median time of EIGHT hours to becompleted into the [employer] Portal. Reason for consult: medication recommendations. [facility] staff will be contacting [facility] at 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: [phone]. Psychiatrist will use this number to start video assessment as well. Please have equipment charged and ready. Device ID given to [facility] is: [id number]. [facility] will monitor consult timeframe and contact [facility] as necessary. For inpatient consults, [facility] should not call after 2300 to start a consult and patient will be seen the next morning. For EmergencyDepartment consults, [facility] sees the patient 12/01. [facility] messaged with ALIREZA Mullen at [facility] and updated them on status. Thank you for the opportunity to participate in this patient's care. Nemo Garsia RN Behavioral Health [facility] * Vern Howe II, MD - 10/12/2023 1:53 PM CDT [facility] Neurology Sixto Chakraborty CONSULTATION 10/12/2023 OV: Consultation at the request of Dr. Adames for an opinion regarding altered sensorium dementia. I have personally taken a history, examined the patient and determined the assessment and plan as outlined below. Chief Complaint. Chief Complaint Patient presents with Leg Swelling HPI. Patient is a 72 y.o. female admitted 10/06/2023 for leg swelling. He had been having lower extremity swelling for several days prior to admission as well as facial swelling. The patient was previously on a diuretic which had been discontinued a year ago. Patient had byipedal edema. Other complaints include neuropathic pain. The patient was admitted with a diagnosis of acute on chronic diastolic congestive heart failure type 2 diabetes with neuropathy hypertension dyslipidemia schizoaffective disorder acute kidney injury superimposed on chronic kidney injury as well as gastro oesophageal reflux disease. The patient has been followed closely by Cardiology and Nephrology Service. As far as the patient neurological status is concerned on 10/09/2019 for unsteady gait was reportedby the patient's sitter. The patient also complained of dizziness documented on October 08, 2023. On October 10, 2023 she was poorly more confused with slurring of speech. On October 11, 2019 for the patient required Zyprexa for slight agitation and was described as still being confused. As of of 10/09/2021 for urinalysis showed no pyuria CBC white count 8.9 hemoglobin 9.6 hematocrit 29.6 platelet count was 322 chemistry panel was remarkable for BUN of 65 creatinine of 4.55 glucose 78 calcium 8.[address] was completed on 10/10/2023 that showed atrophy microvascular no acute changes.Neurology consultation is being requested for evaluation. Review the medical records indicate that the patient was diagnosed with Parkinson's disease June[address] 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 Recommendation that time was to increase Cogentin to 1.5 mg nightly. A diagnosis of Alzheimer's disease was made as well the notes indicate that she has a 5 year history of dementia requiring moderate to full assistance with her ADLs she has been in several nursing homes and had been residing with her daughter at the time of Dr. Gonzalez she evaluation. MMSE at that time was 15/30. Past Medical History: Diagnosis Date Anemia Arthritis CHF (congestive heart failure) ([facility]/HCC) (HCC) Dementia ([facility]) Depression Diabetic neuropathy ([facility]) GERD (gastroesophageal reflux disease) HL (hearing loss) Hyperlipidemia Hypertension Movement disorder Osteomyelitis (HCC) Renal disorder Schizophrenia ([facility]) Type 2 diabetes mellitus ([facility]) Past Surgical History: Procedure Laterality Date SECTION Right right foot EYE SURGERY cataracts TOE AMPUTATION Right 01/06/2020 4th toe amp/ foot debridement/ Dr. Anat Pelayo HOME MEDICATIONS : amLODIPine (NORVASC) 10 mg tablet atorvastatin (LIPITOR) 20 mg tablet famotidine (PEPCID) 10 mg tablet ferrous sulfate 325 mg (65 mg of elemental iron) tablet fluticasone propionate (FLONASE) 50 mcg/actuation nasal spray insulin lispro (HumaLOG, ADMELOG) 100 unit/mL vial for injection LANTUS 100 unit/mL (3 mL) pen for injection risperiDONE (RisperDAL) 2 mg tablet acetaminophen (TYLENOL) 325 mg tablet benztropine (COGENTIN) 1 mg tablet blood-glucose sensor (FreeStyle Madhav 3 Sensor) device flash glucose scanning reader [facility] flash glucose sensor (FreeStyle Madhav 2 Sensor) kit lidocaine (ASPERCREME) 4 % adhesive patch,medicated pen needle, diabetic 32 gauge x 5/32 needle omeprazole (PriLOSEC) 20 mg capsule No Known Allergies Social History Tobacco Use [...] Sister Diabetes Sister Diabetes Brother Review of Systems Constitutional: Negative for chills, decreased appetite, diaphoresis, fever, malaise/fatigue, nightsweats, weight gain and weight loss. HENT: Negative for congestion, hearing loss, hoarse voice, nosebleeds, sore throat and tinnitus. Eyes: Negative for blurred vision, double vision and visual halos. Cardiovascular: Negative for chest pain, claudication, dyspnea on exertion, irregular heartbeat, near-syncope, palpitations and syncope. Respiratory: Negative for cough, shortness of breath, sleep disturbances due to breathing and snoring. Endocrine: Negative for cold intolerance, heat intolerance, polydipsia, polyphagia and polyuria. Hematologic/Lymphatic: Negative for adenopathy and bleeding problem. Does not bruise/bleed easily. Skin: Negative for rash. Musculoskeletal: Negative for back pain, falls, joint pain, joint swelling, muscle cramps, muscle weakness, myalgias, neck pain and stiffness. Gastrointestinal: Negative for abdominal pain, bowel incontinence, constipation, diarrhea, dysphagia, jaundice, nausea and vomiting. Genitourinary: Negative for bladder incontinence, decreased libido, dysuria, flank pain, frequency,hematuria, hesitancy and incomplete emptying. Neurological: Negative for aphonia, brief paralysis, difficulty with concentration, disturbances incoordination, excessive daytime sleepiness, dizziness, focal weakness, headaches, light-headedness,loss of balance, numbness, paresthesias, seizures, sensory change, tremors, vertigo and weakness. Psychiatric/Behavioral: Negative for altered mental status, depression, hallucinations, memory loss, substance abuse and suicidal ideas. The patient does not have insomnia and is not nervous/anxious. Allergic/Immunologic: Negative for environmental allergies and HIV exposure. Physical Exam Vitals reviewed. Constitutional: Appearance: Normal appearance. HENT: Head: Normocephalic and atraumatic. Nose: Nose normal. Eyes: Extraocular Movements: Extraocular movements intact and EOM normal. Pupils: Pupils are equal, round, and reactive to light. Cardiovascular: Rate and Rhythm: Normal rate and regular rhythm. Pulmonary: Effort: Pulmonary effort is normal. Abdominal: Palpations: Abdomen is soft. Musculoskeletal: Cervical back: Normal range of motion. Right lower leg: No edema. Left lower leg: No edema. Skin: General: Skin is warm. Findings: No rash. Neurological: Mental Status: She is alert. Motor: Motor strength is normal. Coordination: Agwgog-Pfuw-Hrxqpw Test normal. Deep Tendon Reflexes: Reflex Scores: Tricep reflexes are 1+ on the right side and 1+ on the left side. Bicep reflexes are 1+ on the right side and 1+ on the left side. Brachioradialis reflexes are 1+ on the right side and 1+ on the left side. Patellar reflexes are 1+ on the right side and 1+ on the left side. Achilles reflexes are 1+ on the right side and 1+ on the left side. Psychiatric: Speech: Speech normal. Neurologic Exam Mental Status Oriented to person. Disoriented to city and area. Disoriented to year, month, day and season. Oriented to date. Registration: recalls 3 of 3 objects. Recall at 5 minutes: recalls 2 of 3 objects. Attention: decreased. Concentration: decreased. Speech: speech is normal Level of consciousness: alert Normal comprehension. The patient is able to follow commands Cranial Nerves CN III, IV, Pupils are equal, round, and reactive to light. Extraocular motions are normal. Right pupil: Shape: regular. Reactivity: brisk. Left pupil: Shape: regular. Reactivity: brisk. CN III: no CN III palsy CN : no CN palsy Nystagmus: none Diplopia: none Ophthalmoparesis: none CN V Facial sensation intact. CN VII Facial expression full, symmetric. CN VIII CN VIII normal. Hearing: intact CN IX, X CN IX normal. CN X normal. Palate: asymmetric CN XI CN XI normal. Right sternocleidomastoid strength: normal Left sternocleidomastoid strength: normal CN XII CN XII normal. Tongue: not atrophic Motor Exam Muscle bulk: normal Overall muscle tone: normal Right arm pronator drift: absent Left arm pronator drift: absent Right leg tone: normal Left leg tone: normal Strength Strength 5/5 throughout. Sensory Exam Light touch normal. Gait, Coordination, and Reflexes Coordination Finger to nose coordination: normal Tremor Resting tremor: absent Intention tremor: absent Action tremor: absent Reflexes Right brachioradialis: 1+ Left brachioradialis: 1+ Right biceps: 1+ Left biceps: 1+ Right triceps: 1+ Left triceps: 1+ Right patellar: 1+ Left patellar: 1+ Right achilles: 1+ Left achilles: 1+ Right cream dumper: 1+ Left cream dumper: 1+ Right plantar: normal Left plantar: normal Right ankle clonus: absent Left ankle clonus: absent Impression and Recommendations. Altered sensorium secondary to intercurrent illness superimposed on a dementia of the Alzheimer's type. The patient appears to be improving. No further neurology workup is indicated at this time. Treatment will be directed towards treating her underlying medical condition. I have nothing else to add to this patient's care and I will be signing off the case thank you for allowing me to participatein your patient's care. Vern Howe II, MD * Asmita Calderon - 10/08/2023 10:48 AM CDTAssociated Order(s): IP CONSULT TO NUTRITION SERVICES NUTRITION ASSESSMENT Nutrition Status: Patient does not meet ASPEN criteria for malnutrition at this time. REASON FOR ASSESSMENT: Consult/Referral - Diet Education Encounter Date: 10/08/23 10:48 AM Admission Date: 10/06/2023 LOS: 1 days HPI: Patient is a 72 y.o. female with a PMHx significant for Arthritis, HFpEF, Dementia, Depression, Diabetic neuropathy, HLD, HTN, Osteomyelitis, CKD IV, Schizophrenia, and IDDM. Presents to the ED with a chief complaint of lower extremity edema. Patient has been consuming microwave popcorn lately. Daughter to speak with patient about reducing sodium in diet. 10/07: Provided renal and consistent carbohydrate education, Pt interested in outpatient counseling,will send referral. Objective Past Medical History: Diagnosis Date Anemia [...] toe amp/ foot debridement/ Dr. Anat Pelayo Social History Tobacco Use Smoking status: Never Smokeless tobacco: Never Substance and Sexual Activity Drug use: Never Sexual activity: Not Currently Partners: Male Alcohol Use: Not At Risk (07/24/2023) AUDIT-C Frequency of Alcohol Consumption: Never Average Number of Drinks: Patient does not drink Frequency of Binge Drinking: Never MEDICATION/LAB REVIEW: Scheduled Meds: amLODIPine, 10 mg, oral, Nightly atorvastatin, 20 mg, oral, Nightly benztropine, 1.5 mg, oral, BID enoxaparin, 30 mg, subcutaneous, Daily-2100 famotidine, 10 mg, oral, Daily ferrous sulfate, 65 mg of elemental iron, oral, BID fluticasone propionate, 2 spray, each nostril, Daily furosemide, 40 mg, intravenous, BID DIURETIC insulin glargine, 0.25 Units/kg, subcutaneous, Nightly insulin lispro, 0-10 Units, subcutaneous, TID with meals insulin lispro, 0-5 Units, subcutaneous, Nightly insulin lispro, 0.083 Units/kg, subcutaneous, TID with meals risperiDONE, 2 mg, oral, Nightly Continuous Infusions: PRN Meds: acetaminophen dextrose OR dextrose glucagon ondansetron Recent Labs Lab Units 10/06/23 2225 SODIUM mmol/L 139 POTASSIUM PLASMA mmol/L 4.4 CHLORIDE mmol/L 108 CO2 mmol/L 18* BUN SERUM mg/dL 54* CREATININE mg/dL 4.09* [id number] mL/min/1.73 m2 11* CALCIUM mg/dL 8.0* ALBUMIN g/dL 3.0* Recent Labs Lab Units 10/08/23 0809 10/08/23 0548 10/08/23 0240 10/07/23202710/07/23 1720 10/07/23 0917 10/06/23 2225 GLUCOSE mg/dL -- -- -- -- -- -- 285* POC GLUCOSE MONITOR mg/dL 121 111 78 162 235* 175 -- ALT Date Value Ref Range Status 10/06/2023 12 7 - 45 Units/L Final AST Date Value Ref Range Status 10/06/2023 26 10 - 45 Units/L Final Comment: Hemolysis present. Results may be affected. Alk phos Date Value Ref Range Status 10/06/2023 154 (H) 40 - 130 Units/L Final Lab Results Component Value Date HGBA1C 8.1 06/30/2023 HDL 33 (L) 09/10/2021 LDLCALC 20 09/10/2021 CHOL 84 09/10/2021 TRIG 153 (H) 09/10/2021 NURSING ASSESSMENT: Timoteo Scale Score: 20 Skin Integrity: Other (Comment) (old surgical scar) Vital Signs BP: 165/72 Temp: 36.7 ??C (98 ??F) Pulse: 77 Resp: 18 SpO2: 98 % Intake/Output Summary (Last 24 hours) at 10/08/2023 1048 Last data filed at 10/08/2023 0925 Gross per 24 hour Intake 240 ml Output -- Net 240 ml Adult Malnutrition Scoring Tool (MST) What diet do you follow at home?: diabetic Have You Recently Lost Weight Without Trying?: Yes (Comment) How Much Weight Have You Lost?: 2 - 13 lb Have you been eating poorly because of a decreased appetite?: No Malnutrition Screening Tool (MST) Score: 1 Anthropometrics Weight: 64.5 kg (142 lb 1.6 oz) Admission Weight : 64.5 kg Weight Change: 6.39 kg (14.10 lbs) IBW/kg (Calculated) : 49.9 kg Height: 157.5 cm (5' 2.01 ) Weight in (lb) to have BMI = 25: 136.4 BMI (Calculated): 26 Wt Readings from Last 10 Encounters: 10/07/23 64.5 kg (142 lb 1.6 oz) 09/03/23 58.5 kg (129 lb) 08/03/23 58.2 kg (128 lb 6.4 oz) 07/28/23 56.7 kg (125 lb) 07/24/23 56 kg (123 lb 6.4 oz) 06/30/23 60.8 kg (134 lb) 04/07/23 59.2 kg (130 lb 9.6 oz) 03/24/23 59 kg (130 lb) 03/18/23 61.7 kg (136 lb) 01/23/23 61 kg (134 lb 8 oz) ESTIMATED NEEDS: Weight Used for Equation Calculations (RD Determined): 64.5 kg (142 lb 3.2 oz) Total Kcal/kg Estimated Needs : 1804.77 Kcal/k. Type of Weight Used for Estimated Kcals: Current Total Protein Estimated Needs (gm): 70.9 Protein Needs Based on g/k.1 Type of Weight Used for Estimated Protein : Current Total Fluid Estimated Needs Comments:: 1500 mL (HD) Dietary Orders (From admission, onward) Start Ordered 10/07/23 2100 Bedtime snack At bedtime Comments: If bedtime BG is less than 100mg/dl, give patient a 15 gram carbohydrate snack. 10/07/23 1555 10/07/232042 Adult Diet Restricted; Low Fat, Low Chol, Low Na, 2 GM Sodium; Consistent Carb 1600 chanelle; Renal; 1500mL = Diet 1050/Nursing 450 Diet effective now Question Answer Comment (CH) Diet type Restricted Fat / Sodium Restriction: Low Fat, Low Chol, Low Na Fat / Sodium Restriction: 2 GM Sodium Diabetic: Consistent Carb 1600 chanelle Renal: Renal Fluid restriction dietary / 24h: 1500mL = Diet 1050/Nursing 450 10/07/232042 Allergies: Reviewed. IMPRESSION: RD consulted for diet education. Pt received education on renal and consistent carbohydrate diet, Kidney Health and consistent carbohydrate handout was provided. Pt asked many questions during education and is interested in outpatient counseling, will send referral. Pt motivated to make changes in diet to avoid fluid build up. Pt states she has a good appetite and is eating well, eating 100% of breakfast, EMR confirms. Pt states she usually eats 3 meals/day at home. Reported following a consistent carbohydrate diet at home and checking BG regularly. Pt reported a UBW of 160 lbs, Pt currently weighs 142 lbs. Stated she has not noticed any weight changes recently. Question accuracy of weight f luctuation in chart history due to weight methods. Weight changes may be fluid related, Hx of CHF and CKD4. NFPE conducted, no significant signs of wasting noted. Edema noted in LE. On Lasix. Pt doesnot meet malnutrition criteria at this time. No chewing/swallowing difficulties reported. No N/V/C/D. GI WDL. SKin WDL. Labs and medications reviewed. Glucose: 78-[address] will continue to follow. ASPEN MALNUTRITION ASSESSMENT: Date of completion: 10/08/23 ASPEN/AND Malnutrition Screening: Patient does not meet malnutrition criteria NUTRITION FOCUSED PHYSICAL EXAM: Completed, patient with changes likely related to age and not nutrition status. Subcutaneous Fat Loss Orbital Region - Surrounding the Eye: Slightly bulged fat pads Cheek Region - Buccal Fat: Full, round filled-out cheeks Upper Arm Region - Triceps/Biceps: Ample fat tissue obvious between folds of skin Muscle Loss Denominational Region - Temporalis Muscle: Slight depression Clavicle Bone Region - Pectoralis Major, Deltoid, Trapezius Muscles: Not visible in male, visible but not prominent in female Clavicle and Acromion Bone Region - Deltoid Muscle: Rounded, curves at arm/shoulder/neck Dorsal Hand - Interosseous Muscle: Muscle bulges, could be flat in some well nourished people Anterior Thigh and Patellar Region - Quadricep Muscle: Patella not prominent Edema Edema: Mild to moderate pitting NUTRITION DIAGNOSIS: Nutrition Diagnosis 1: Food and nutrition-related knowledge deficit Related to: Lack of education, Chronic illness/injury Evidenced by: Patient interview, Physical finding Nutrition Diagnosis 2: Increased nutrient needs (protein) Related to: ESRD Evidenced by: Dialysis treatments INTERVENTION(S): Summary: Initial assessment, Education, NFPE Pt educated on limiting sodium and consistent carbohydrate diet GOAL(S): Continue adequate PO intakes, Patient/caregiver able to teach back understanding of role of diet indisease process prior to discharge MONITORING/EVALUATION: Appetite, Blood glucoses, Diet-related questions, Weight changes, PO intake Diet Instructions You will need to limit the amount of carbohydrates, potassium, phosphorus, sodium, and fluid that you consume every day. Have 3 daily meals with about 75 grams of carbohydrate at each one, avoid skipping any meals. Limit foods such as fast food items, fried/breaded foods, canned goods, deli meats, gravies/sauces,bananas, potatoes, tomatoes, oranges, turkey, and chocolate. Avoid drinking any sugary drinks like lemonade, regular soda, gatorade, and sweet tea. You should also limit drinking orange juice, tomato juice, milk, and dark diet sodas because they are higher in phosphorus and potassium. Follow any fluid restrictions recommended by your doctor. Do not use salt substitutes because they typically contain high amounts of potassium. Keep your salt shaker away from your table and don't add extra to your food. Drink 1-2 Nepro daily ,or another high protein supplement, to help replace the protein lost during dialysis. Monitor your blood sugar and take all medication as directed by your doctor. Call [phone] to speak with a [facility] registered dietitian about any nutrition related concerns after discharge. For any other questions you can call and ask to be connected to the floor that you were discharged from. Nutrition Follow-Up : 10/15/23 Ema Calderon, Structural Steel Fitter Cosigned by Mayra Wong at 10/08/2023 1:37 PM CDT * Jimbo Strauss MD - 10/07/2023 5:00 PM CDTAssociated Order(s): IP CONSULT TO NEPHROLOGY Renal Consultation Requested By: Bev Adames MD Requested Of: Jimbo Strauss MD REASON FOR CONSULT STEFANO/CKD Dictating: Jimbo Strauss MD #: [id number] : 1950 CSN: [id number] Date of Admission: 10/06/2023 Date of Consult: 10/07/2023 History Of Present Illness: This is a 72 y.o. Black Or female with PMH HFpEF, Dementia, Depression, Diabetic neuropathy, HLD, HTN, Osteomyelitis, CKD IV, Schizophrenia presented with increased LE edema. History obtained by reading the chart. Patient is somewhat confused due to her dementia. Past Medical History Pulmonary hypertension chronic kidney disease due to diabetes and/or hypertension chronic kidney disease stage 4. Past Medical History: Diagnosis Date Anemia Arthritis CHF (congestive heart failure) (CMS/HCC) (HCC) Dementia (HCC) Depression Diabetic neuropathy (HCC) GERD (gastroesophageal reflux disease) HL (hearing loss) Hyperlipidemia Hypertension Movement disorder Osteomyelitis (HCC) Renal disorder Schizophrenia (HCC) Type 2 diabetes mellitus (HCC) Past Surgical History Past Surgical History: Procedure Laterality Date SECTION Right right foot EYE SURGERY cataracts TOE AMPUTATION Right 01/06/2020 4th toe amp/ foot debridement/ Dr. Anat Pelayo Allergies: No Known Allergies Social History: Social History Tobacco Use Smoking status: Never Smokeless tobacco: Never Substance and Sexual Activity Drug use: Never Sexual activity: Not Currently Partners: Male Alcohol Use: Not At Risk (07/24/2023) AUDIT-C Frequency of Alcohol Consumption: Never Average Number of Drinks: Patient does not drink Frequency of Binge Drinking: Never Family History: Family History Problem Relation Age of Onset Diabetes Mother Heart disease Mother Kidney disease Mother Stomach cancer Father Alcohol abuse Father Diabetes Sister Diabetes Sister Diabetes Brother Review of Systems difficult to obtain due to confusion status. Medications as listed in epic Physical Exam: Vitals: 24hr Min/Max: Temp Min: 36.4 ??C (97.5 ??F) Max: 36.8 ??C (98.3 ??F) Pulse Min: 68 Max: 98 BP Min: 119/96 Max: 153/62 Resp Min: 18 Max: 20 SpO2 Min: 96 % Max: 98 % Intake/Output Summary (Last 24 hours) at 10/11/2023 0841 Last data filed at 10/10/2023 1006 Gross per 24 hour Intake 240 ml Output -- Net 240 ml Wt Readings from Last 3 Encounters: 10/07/23 64.5 kg (142 lb 1.6 oz) 09/03/23 58.5 kg (129 lb) 08/03/23 58.2 kg (128 lb 6.4 oz) @FLOWS@ Temp Av.6 ??C (97.9 ??F) Min: 36.4 ??C (97.5 ??F) Max: 36.8 ??C (98.3 ??F) BP Min: 119/96 Max: 153/62 Pulse Av.5 Min: 68 Max: 98 Resp Av.5 Min: 18 Max: 20 SpO2 Av.3 % Min: 96 % Max: 98 % Most Recent: Vitals: 10/11/23 0700 BP: 153/62 Pulse: 80 Resp: 18 Temp: 36.8 ??C (98.3 ??F) SpO2: 96% Physical Exam: Constitutional: Thin frail female confused. HENT: Head: Normocephalic. Eyes: Conjunctivae and EOM are normal. Pupils are equal, round, and reactive to light. No scleral icterus. Neck: Normal range of motion. Neck supple. Cardiovascular: Normal rate, regular rhythm and normal heart sounds. Pulmonary/Chest: Effort normal and breath sounds normal. Abdominal: Soft. Bowel sounds are normal. Musculoskeletal: Normal range of motion. Neurological: alert difficult to obtain orientation questions. Does move all extremities to command. Lab/Radiology/Diagnostic Review: Recent Labs Lab Units 10/11/23 0720 10/11/23 0443 10/10/23 0744 10/10/23 0501 10/09/23 0744 10/09/23 0714 SODIUM mmol/L -- 141 -- 141 -- 144 POTASSIUM PLASMA mmol/L -- 3.5 -- 3.9 -- 4.1 CHLORIDE mmol/L -- 109 -- 106 -- 110 CO2 mmol/L -- 22 -- 20* -- 19* BUN SERUM mg/dL -- 65* -- 64* -- 59* CREATININE mg/dL -- 4.55* -- 4.68* -- 4.59* [id number] mL/min/1.73 m2 -- 10* -- 9* -- 10* GLUCOSE mg/dL -- 78 -- 78 -- 90 POC GLUCOSE MONITOR mg/dL 88 -- < > -- < > -- CALCIUM mg/dL -- 8.3* -- 8.4* -- 8.2* ALBUMIN g/dL -- 2.8* -- 3.0* -- 2.7* PHOSPHORUS PLASMA mg/dL -- 5.5* -- 5.5* -- 5.8* < > = values in this interval not displayed. Additional Labs: Recent Labs Lab Units 10/10/23 1808 10/08/23 1155 10/06/23 2225 WBC K/cumm 8.9 8.2 9.6 HEMOGLOBIN g/dL 9.6* 8.9* 9.2* HEMATOCRIT % 29.6* 29.0* 29.1* PLATELETS K/cumm 322 311 280 NEUTROS PCT % 71.5 65.1 63.8 LYMPHS PCT % 20.0 26.3 26.8 MONOS PCT % 6.4 6.1 6.0 EOS PCT % 1.5 1.9 2.5 Recent Labs Lab Units 10/10/23 1500 COLOR U Straw CLARITY U Clear SPEC GRAV U 1.009 PH, URINE 6.0 PROTEIN UR QL 3+* GLUCOSE URQL 1+* KETONES UR Negative BLOOD UR 1+* NITRITE UR Negative LEUKOCYTE ESTERASE UR Negative Recent Labs Lab Units 10/10/23 1500 COLOR U Straw CLARITY U Clear SPEC GRAV U 1.009 PH, URINE 6.0 PROTEIN UR QL 3+* GLUCOSE URQL 1+* KETONES UR Negative BLOOD UR 1+* NITRITE UR Negative LEUKOCYTE ESTERASE UR Negative XR Chest 1 View Result Date: 10/11/2023 FINDINGS/IMPRESSION: No pneumothorax or pleural effusion. Mild pulmonary vascular congestion. No cardiomegaly. No acute osseous abnormality. Electronically signed by: Phil Pete II, D.O. Problems: 1. chronic kidney disease: Due to diabetes and hypertension. Stage IV. 2. Hypertension: Adjust blood pressure medicines as needed 3. Edema: Mostly due to pulmonary hypertension and chronic kidney disease. Ongoing diuresis. Expectsome rising creatinine with diuresis. 4. Metabolic acidosis: Due to renal failure. If it goes any lower will need supplementation. Time Spent on the evaluation process was 80 minutes Thank you for allowing me to participate in the care of this patient. If you have any questions please do not hesitate to call. DICTATION DISCLAIMER: This note is transcribed using the Ztail direct voice recognition system without human dust control engineer. In an effort to expedite patient care, this note has not been adjusted for typographical, grammatical, and syntax by a trained medical equipment sales. Jimbo Strauss Office:[phone] * William Velasquez MD - 10/07/2023 12:32 PM CDTAssociated Order(s): IP CONSULT TO CARDIOLOGY Cardiology Consult Note-[facility] Date of Consult: 10/07/2023 Patient's Primary Care Physician: Duane Corcoran MD Physician Requesting Consult: No ref. provider found Name: Sixto Chakraborty Age: 72 y.o. Sex: female Past Medical History: Diagnosis Date Anemia Arthritis [...] not drink Frequency of Binge Drinking: Never (Not in a hospital admission) No Known Allergies Consulted By: Hospitalist Team Reason for Consult: Elevated troponin CHF exacerbation HPI: 72-year-old female with history of type 2 diabetes hypertension dyslipidemia CKD progressive in nature presented emergency room with complaint of having increasing lower extremity edema. Denies any significant shortness of breath no orthopnea PND or angina. Twelve lead EKG personally reviewed d emonstrating sinus rhythm. Review of labs demonstrate further worsening of creatinine. Patient has been evaluated by Nephrology. Troponin is mildly elevated without any significant delta. She is chronic anemia hemoglobin stable. MEDICATIONS FOR CURRENT ENCOUNTER: Review of systems pertinent all other review of system negative except as per HPI Data Recent Labs Lab Units 10/06/23 2225 WBC K/cumm 9.6 HEMOGLOBIN g/dL 9.2* HEMATOCRIT % 29.1* PLATELETS K/cumm 280 Recent Labs Lab Units 10/07/23 0917 10/06/23 2225 SODIUM mmol/L -- 139 POTASSIUM PLASMA mmol/L -- 4.4 CHLORIDE mmol/L -- 108 CO2 mmol/L -- 18* ANIONGAP mmol/L -- 13 GLUCOSE mg/dL -- 285* POC GLUCOSE MONITOR mg/dL 175 -- BUN SERUM mg/dL -- 54* CREATININE mg/dL -- 4.09* CALCIUM mg/dL -- 8.0* ALBUMIN g/dL -- 3.0* ALK PHOS Units/L -- 154* ALT Units/L -- 12 AST Units/L -- 26 BILIRUBIN TOTAL mg/dL -- 0.2 No intake or output data in the 24 hours ending 10/07/23 1232 Examination: GENERAL APPEARANCE: pleasant, NAD, appears to be of stated age. HEENT: No Xanthelasma, No Pallor, No discharge from nose or ear. CAROTID UPSTROKE: normal, no bruit. JVD: Less than 8 cm. HEART SOUNDS: RRR, normal S1, S2, no S3 or S4. MURMUR, CLICK, GALLOP: absent. LUNGS: No accessory muscle use, crackling of bilateral lungs ABDOMEN: soft, non-tender CARDIAC PMI not displaced. EXTREMITIES: 1+ leg edema, No cyanosis or clubbing MISC Neuro: alert and oriented x3, no focal deficit, Appropriate mood and affect Skin: No changes of venous stasis MSK: No Joint swellings Vitals: 10/07/23 0700 10/07/23 0800 10/07/23 0900 10/07/23 1100 BP: 164/63 145/63 159/67 (!) 174/71 Pulse: 68 65 66 72 Resp: 18 18 14 20 Temp: SpO2: 96% 94% 95% 96% Weight: Height: Assessment Patient Active Problem List Diagnosis Diabetic neuropathy ([facility]) Type 2 diabetes mellitus with diabetic neuropathy, with long-term current use of insulin ([facility]) Primary hypertension Amputation of toe of right foot ([facility]) ([facility]) Iron deficiency anemia Gastroesophageal reflux disease Mixed hyperlipidemia Schizoaffective disorder, bipolar type ([facility]) ([facility]) 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 2 diabetes mellitus ([facility]) ([facility]) Encounter for Medicare annual wellness exam Late onset Alzheimer's dementia without behavioral disturbance ([facility]) Volume overload Anemia Toe necrosis ([facility]) ([facility]) Physical deconditioning Left leg DVT ([facility]) Pulmonary nodule Retention of urine, unspecified Unspecified osteoarthritis, unspecified site Unsteadiness on feet Weakness Parkinsonism ([facility]) Wheezing Anemia in stage 4 chronic kidney disease ([facility]) Osteomyelitis of great toe of right foot ([facility]) ([facility]) Abnormal urinalysis Acute on chronic diastolic congestive heart failure ([facility]) ([facility]) Bibasilar consolidations Movement disorder Shortness of breath GI bleed Bandemia Volume overload - most likely due to renal dysfunction may have some component of acute on chronic diastolic heart failure but this is largely due to renal dysfunction CKD stage IV -nephrology is managing seen by Dr. Cronin Acute on chronic diastolic heart failure - normal LV function on recent echocardiogram Elevated troponin due to renal dysfunction - does not represent ACS - nonischemic MPI recently Essential hypertension -BP stable Diabetes mellitus type 2 Iron deficiency anemia - hemoglobin stable William Velasquez MD, FAC, [facility], R[facility]I [facility] [phone] 10/07/2023 12:32 PM documented in this encounter Nursing Notes * Gregory Lynch, RN - 10/22/2023 1:12 PM CDT Gave report to [facility]. * Josef Nicole - 10/22/2023 11:02 AM CDT 10/22/23 1025 Vitals BP 125/58 BP Location Right arm BP Method Automatic Patient Position HOB 30 degrees Temp 36.7 ??C (98 ??F) Temp src Temporal Pulse 56 Resp 18 Post-Hemodialysis Assessment Net UF 566 mL Post-Hemodialysis Comments Post tx vitals stable, all lines clamped and capped Hemodialysis Volumes Intake (mL) 500 mL Output (mL) 1066 mL Hemodialysis Cath Double 10/15/23 Tunneled catheter Right Internal Jugular Placement Date/Time: 10/15/23913 Present on Hospital Admission: No Catheter Time Out Checklist Completed: Yes Hand Hygiene Performed: Yes Site Prep: Chlorhexidine Site Prep Agent has Completely Dried Before Insertion: Yes All 5 Sterile Francisco... Lumen #1 Status Heparin locked;Capped - Disinfectant Lumen #2 Status Heparin locked;Capped - Disinfectant Pt. Tolerated treatment well. Lines capped and clamped. No distress noted. * Josef Nicole - 10/19/2023 1:35 PM CDT 10/19/23 1258 Vitals BP 130/61 BP Location Right arm BP Method Automatic Patient Position Lying Temp 36.5 ??C (97.7 ??F) Temp src Temporal Pulse 61 Resp 18 Resp Source Visual Post-Hemodialysis Assessment Net UF 200 mL Post-Hemodialysis Comments dialysis terminated at 1253. uf goal not reached d/t low blood pressures. uf pump was turned off during treatment at 1000. Hemodialysis Volumes Intake (mL) 700 mL Output (mL) 500 mL Hemodialysis Cath Double 10/15/23 Tunneled catheter Right Internal Jugular Placement Date/Time: 10/15/23913 Present on Hospital Admission: No Catheter Time Out Checklist Completed: Yes Hand Hygiene Performed: Yes Site Prep: Chlorhexidine Site Prep Agent has Completely Dried Before Insertion: Yes All 5 Sterile Francisco... Dressing Type CHG+Hemostatic Dressing Status Clean, dry, intact Dressing Intervention Site care Dressing Change Due 10/22/23 Lumen #1 Status Blood return brisk;Capped - Disinfectant;Saline locked;Flushes easily Lumen #2 Status Blood return brisk;Capped - Disinfectant;Flushes easily;Saline locked Uf goal not reached d/t low blood pressures * Martinez Granados, RN - 10/08/2023 3:15 PM CDT Consult received for Diabetes Nurse Educator: Blood Glucose Monitoring Arrived to room. Patient was sitting in bedside chair. Alert and oriented x2-3, presents with some forgetfulness and confusion at times. She is pleasant and accepting of diabetes education. Patient did inform me that her daughter assists her with her insulin administration and monitoring her blood sugars. She stated that she has been diabetic for 2 years, this might questionable due to her forgetfulnessand confusion at times. She informed me that her mother and father were both diabetic. Patient is not appropriate for diabetes education due to concern regarding her retention ability and her confusion and forgetfulness. Pre-Education Assessment Visit Type: Initial Introduction: ID verified, Alert & Oriented x4, patient receptive to educational opportunity. Family History: both mother and father When Diagnosed: 2 years ago Provider: Medical/Tuck Pointer/PCP Treatment Prior to Admission: Insulin, Blood glucose monitoring Learning Barriers: yes, presents with some confusion and forgetfulness Knowledge Base: intermediate Hemoglobin A1c: 8.2% (Reviewed what is A1c, current A1C value, ADA recommended target guidelines, goal of <7%. Copy of lab and current blood sugar trends provided) Home glucose testing frequency: stated that she has a CGM Exercise habits: sedentary Hypoglycemic episodes: none that she recalls Home Supplies: patient stated that she would like a glucometer and that she didn't have a glucometer at home. Patient was provided a glucometer and supplies (Provided patient with free Easy Touch glucometer, 100 test strips, 100 lancets; will need a prescription for additional Easy touch testing supplies upon discharge) Patient was shown how to use Easy Touch glucometer and testing supplies. Teaching included handwashing prior to inserting glucometer test strip, following prompt on screen, inserting lancet into lancet device, cleaning skin with alcohol prep pad, identifying area to perform fingerstick/rotation, lancet disposal, reading results and importance of documenting results to provide to PCP/Railway Signal Electrician later for medication adjustments. Hyper/hypoglycemia numbers discussed. Diabetes Management Education Provided: Handouts: Important Diabetes Information for You Including: medical equipment, lab test/procedures/treatment, self- management/adherence, weight management, exercise, blood glucose monitoring, sick day management, diabetic foot care, diabetic identification alerts, chronic complications of diabetes, ways to reduce A1c, grocery list describing carbs in various foods, diet/meal planning, carbohydrate counting, prevention/signs and symptoms/treatment of hypoglycemia, preventions/signs and symptoms/treatment of hyperglycemia, community resources, follow up appointments, and when to call their provider Diabetes Self Care booklet x2 ADA Target Blood Glucose and A1c Guidelines Diabetes Alert Card What The Carb?!? (Handout with various foods with their carbs in grams. Educating to consume Men:60-75g per meal, [id number] per meal, three meals/day). Diabetic wands (Visual aid that shows increase in A1c slows cell transportation, A1c: normal, 8%, 12-14%) Discharge Recommendations: Glucometer: Easy Touch glucometer (provided) Test Strips: 100 Easy Touch test strips (provided but please order refills) Lancets: 100 Lancets (provided but please order refills) Blood Glucose Testing Regimen: 4 times per day, before meals and bedtime (as directed by PCP) Outcome: Patient was receptive to diabetes education, but is really not appropriate for diabetes education. Her recall and retention is questionable. Attempted to reviewed with patient causes of hyperglycemia(diet, stress, steroids, illness, infection, or body's lack of using/producing insulin). Provided and reviewed Easy Touch glucometer, supplies, and refill information. Demonstrated use of Easy Touch glucometer with patient. She requested wanting a glucometer and testing supplies but is not able to independently self monitor blood sugars. My contact information was provided. Patient verbalized understanding of education provided though she has limited retention and recall of what was presented during educational session. Call was placed to daughter and she was updated on diabetes self management educational material and glucometer and testing supplies left in her mothers room along with my contact information should she have any questions regarding diabetes. ~Martinez IRELAND,topline beading machine tender Educato documented in this encounter ED Notes * Trisha Montiel MD - 10/06/2023 10:17 PM CDT HPI Chief Complaint Patient presents with Leg Swelling HPI Patient History: Sixto Chakraborty is a 72 y.o. female with a PMH of HTN, HLD, CHF, DVT off AC, CKD presenting with legswelling. Patient comes in with daughter. Patient has been having leg swelling in both of her legs for the last few days. They reported swelling to the face as well. Patient used to be on a diuretic but daughter states it was discontinued last year. Patient is not having CP or SOB. Patient has been eating a lot more popcorn lately per daughter. No other significant dietary changes. History obtained by:Patient as an independent historian and Family/friend Oil Pumper used: No Patient Active Problem List Diagnosis Date Noted GI bleed 12/20/2022 Bandemia 12/20/2022 Shortness of breath 12/13/2022 Acute on chronic diastolic congestive heart failure (CMS/HCC) ([facility]) 12/06/2022 Bibasilar consolidations 12/06/2022 Movement disorder 12/06/2022 Abnormal urinalysis 11/07/2022 Osteomyelitis of great toe of right foot (CMS/HCC) ([facility]) 11/06/2022 Anemia in stage 4 chronic kidney disease (HCC) 10/10/2022 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[facility]) 08/14/2022 Pulmonary nodule 11/16/2021 Physical deconditioning 11/15/2021 Left leg DVT ([facility]) 11/15/2021 Toe necrosis ([facility]) ([facility]) 10/07/2021 Anemia 09/07/2021 Volume overload 09/06/2021 Retention of urine, unspecified 08/22/2021 Unspecified osteoarthritis, unspecified site 08/22/2021 Unsteadiness on feet 08/22/2021 Weakness 08/22/2021 Late onset Alzheimer's dementia without behavioral disturbance ([facility]) 08/19/2021 Encounter for Medicare annual wellness exam 01/08/2021 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 2 diabetes mellitus ([facility]) ([facility]) 12/11/2020 Schizoaffective disorder, bipolar type ([facility]) ([facility]) 10/10/2020 Mixed hyperlipidemia 04/03/2020 Iron deficiency anemia 04/02/2020 Gastroesophageal reflux disease 04/02/2020 Amputation of toe of right foot ([facility]) ([facility]) 01/19/2020 Primary hypertension 12/13/2019 Type 2 diabetes mellitus with diabetic neuropathy, with long-term current use of insulin ([facility]) 08/30/2019 Diabetic neuropathy ([facility]) Past Medical History: Diagnosis Date Anemia Arthritis CHF (congestive heart failure) ([facility]) ([facility]) Dementia ([facility]) Depression Diabetic neuropathy ([facility]) GERD (gastroesophageal reflux disease) HL (hearing loss) Hyperlipidemia Hypertension Movement disorder Osteomyelitis ([facility]) Renal disorder Schizophrenia ([facility]) Type 2 diabetes mellitus ([facility]) Past Surgical History: Procedure Laterality Date [...] not drink Frequency of Binge Drinking: Never Social History Social History Narrative Originally From [place] Grew up with her mom and dad. 12th grade - graduated. [employer]. [employer] - none. Rastafari. I never worked. Single. Review of Systems Review of Systems ROS: CONSTITUTIONAL: no fever HEENT: no rhinorrhea EYES: no eye reddness CARDS: normal heart rate RESP: normal work of breathing GI: normal/unchanged bowel habits : normal urineoutput SKIN: no rash NEURO: normal weakness/ tone HEME: no abnormal bruising Physical Exam ED Triage Vitals [10/06/23 1555] Temp Pulse Resp BP SpO2 36.4 ??C (97.5 ??F) 90 20 (!) 188/69 98 % Temp src Heart Rate Source Patient Position BP Location FiO2 (%) -- -- -- -- -- Height Height Method Weight Weight Method 1.575 m (5' 2 ) -- 58.1 kg (128 lb) -- Physical Exam Physical Exam Constitutional: No acute distress HENT: Head: Normocephalic and atraumatic. Eyes: Conjunctivae are normal. PERRL. No scleral icterus. Cardiovascular: Normal rate and regular rhythm. No murmur heard. Pulmonary: Clear to auscultation b/l. No respiratory distress. Abdominal: Soft, non-tender, non-distended Musculoskeletal: Normal ROM of extremities. 2+ BLE edema Neurological: Awake, alert, motor/sensory grossly intact. Skin: Skin is warm and dry. Psychiatric: Behavior is normal. Thought content normal. MDM MDM Sixto Chakraborty is a 72 y.o. female presenting with leg swelling. On exam patient has no objective evidence of facial or body swelling as documented in the telephoneencounter. She does have 2+ edema in both her legs below the knees. No CP or SOB to suggest acute CHF. Patient seen in the ED a couple of months ago with pain and negative ultrasound for DVT and alsono pain at this time but rather swelling which is more likely a volume issue. Will be somewhat difficult to manage given patient's CKD. Plan for basic labs, BNP, EKG interpretation The following cardiac studies were independently interpreted by myself EKG Interpretation: Date of EK10/07/23 STEMI vs No STEMI: No STEMI Rate: 74 Rhythm: Sinus Intervals: Narrow Blocks: No blocks Acuity: Acute illness/injury with risk to life or bodily function External Records Reviewed: Inpatient records Smoking status: Patient denies smoking I have independently interpreted the labs and/or imaging for this patient and my findings conclude:Basic labs unremarkable Attending Summary of Care ED Course as of 10/07/23 0604 Time: 10/05 2301 Comment: Slightly worsening creatinine function. Will try to get a hold of patient's PCP By: Trisha Montiel MD Time: 10/053 Comment: Spoke with Dr. Spivey covering for Dr. Corcoran. Recommends admission for cards/nephr eval By: Trisha Montiel MD Time: 10/06 2351 Comment: I discussed the case with Kanika from [email or web address]. The plan is to have nephro see patient in the AM prior to starting patient on diuretics at this time By: Trisha Montiel MD Time: 10/06 17 Comment: Spoke with other cards group (brittney) as seen by them. Same recs By: Trisha Montiel MD Time: 10/06 0108 Comment: Discussed case with Dr. Hernandez. Does not believe patient requires admission. Will discussagain with cards By: Trisha Montiel MD Time: 10/06 0203 Comment: Spoke with Brittney with cards. Will add on trop. Worse case will have patient stay in the ED til morning for nephro and cards eval By: Trisha Montiel MD Time: 10/06 0603 Comment: Sign out to Dr. Guillaume: D/c pending cards/nephro eval By: Trisha Montiel MD Leg swelling Trisha Montiel MD 10/07/23 0604 * Codi Hicks RN - 10/06/2023 3:53 PM CDT Pt presents to ED for bilateral leg swelling x2-3 days. Pt denies chest pain and Shortness of breath. Family states I think she is fluid overloaded. States doctor took her off water pills over a year ago. documented in this encounter Miscellaneous Notes * Plan of Care - Jyoti Damon RN - 10/22/2023 1:50 PM CDT IMM given and reviewed with patient. Verbalized understanding. Copy left at the bedside and signed copy placed in the patients chart. CM will continue to follow and assist with discharge planning as needed. Discharge disposition:10/22/23 1090 Communications Important Message from Medicare notice given to patient? Yes Jyoti Damon [employer] [phone] * Plan of Care - Gregory Lynch RN - 10/22/2023 10:50 AM CDT Problem: Discharge Planning Goal: Understanding discharge needs will improve Outcome: Adequate for Discharge Problem: Fall Risk Goal: Ability to state ways to decrease the risk of falls will improve Outcome: Adequate for Discharge Goal: Will remain free from falls Outcome: Adequate for Discharge Goal: Will remain free from injury from falls Outcome: Adequate for Discharge Problem: Disease Process Goal: Knowledge of disease or condition will improve Outcome: Adequate for Discharge Goal: Seeking information regarding disease process or condition Outcome: Adequate for Discharge Goal: Ability to make informed decisions regarding treatment will improve Outcome: Adequate for Discharge Goal: Identification of resources available to assist in meeting health care needs will improve Outcome: Adequate for Discharge Problem: Medication Regimen Goal: Knowledge of medication regimen will improve Outcome: Adequate for Discharge Problem: Diagnostic Tests Goal: Knowledge of diagnostic tests will improve Outcome: Adequate for Discharge Goal: Ability to verbalize follow-up procedures will improve Outcome: Adequate for Discharge Problem: Treatment Goal: Expressions of comfortable level of knowledge will increase Outcome: Adequate for Discharge Goal: Knowledge of prescribed therapeutic regimen will improve Outcome: Adequate for Discharge Goal: Ability to make informed decisions regarding treatment will improve Outcome: Adequate for Discharge Goal: Identification of resources available to assist in meeting health care needs will improve Outcome: Adequate for Discharge Problem: Dietary Regimen Goal: Knowledge of prescribed regimen will improve Outcome: Adequate for Discharge Goal: Ability to plan menus appropriate to prescribed diet will improve Outcome: Adequate for Discharge Goal: Compliance with prescribed food intake will improve Outcome: Adequate for Discharge Problem: Lack of Knowledge Goal: Ability to describe self care measures that may prevent or decrease complications related to Type 1 Diabetes will improve Outcome: Adequate for Discharge Goal: Ability to describe self care measures that may prevent or decrease complications related to Type 2 Diabetes will improve Outcome: Adequate for Discharge Problem: Health Nutrition Goal: Nutritional intake and knowledge related to Diabetes will improve Outcome: Adequate for Discharge Problem: Lack of Knowledge Goal: Ability to develop a pain control plan will improve Outcome: Adequate for Discharge Problem: Medication Goal: Satisfaction with pain management medication regimen will improve Outcome: Adequate for Discharge Problem: Sensory Goal: Ability to identify factors that increase pain levels will improve while working to decrease the patient's pain levels Outcome: Adequate for Discharge Problem: Coping Goal: Ability to cope will improve Outcome: Adequate for Discharge Problem: Health Behavior Goal: Identification of resources available to assist in meeting health care needs will improve Outcome: Adequate for Discharge Problem: Neurosensory Goal: Achieves stable or improved neurological status Outcome: Adequate for Discharge Goal: Achieves maximal functionality and self care Outcome: Adequate for Discharge Problem: Cardiovascular Goal: Maintains optimal cardiac output and hemodynamic stability Outcome: Adequate for Discharge Goal: Absence of cardiac dysrhythmias or at baseline Outcome: Adequate for Discharge Problem: Skin/Tissue Integrity Goal: Skin integrity remains intact Outcome: Adequate for Discharge Problem: Musculoskeletal Goal: Return mobility to safest level of function Outcome: Adequate for Discharge Problem: Physical Regulation Description: Module scope: This [...] treatment will be avoided or minimized Outcome: Adequate for Discharge Problem: Genitourinary Goal: Absence of urinary retention Outcome: Adequate for Discharge Goals: Clinical Goals for the Shift: Monitor VS, 1:1 Observation, Frequent Safety Checks and Comfort Rounds, Pain Control and Rest Summary: Patient discharging * [facility] Note - Jyoti Damon RN - 10/21/2023 8:26 AM CDT Patient Information: Patient Header Patient Information Patient Name: SIXTO CHAKRABORTY Date of 1950 (72 years) Sex: Female Phone Numbers: Home: , Referral Summary Patient Information Patient Name: SIXTO CHAKRABORTY Date of 1950 (72 years) Sex: Female Phone Numbers: Home: Attending Provider: Zhang Mendez MD Allergies: No Known Allergies Isolation: None Infection: None Code Status: FULL Ht: 157.5 cm (5' 2.01 ) Wt: 61.6 kg (135 lb 12.8 oz) Admission Cmt: None Principal Problem: Acute on chronic diastolic congestive heart failure (CMS/HCC) ([facility]) [I50.33] Elopement Risk Date/Time Risk/Reason for Elopement User 10/17/23 1042 Limited capacity to understand consequences of leaving;Recent history (within the past 30 days) of eloping/ wandering FBT 10/08/23 1608 Limited capacity to understand consequences of leaving [facility]J 10/06/23 1555 No risk JLG Intake/Output 10/19/23 0700 - 10/20/23 0659 Total Intake (ml) 700 Output (ml) 500 Net (ml) 200 Patient Lines/Drains/Airways Status Active Airway / Central venous catheter / Drain / Epidural cathether / Intraosseous line / Peripherally inserted central catheter / Peripheral intravenous line / Arterial line Name Placement date Placement time Site Days Peripheral IV 10/12/23 22 G Left;Posterior Hand 10/12/23 1647 Hand 8 Active Wound Assessment Active Wound / Pressure injury / Morgan / Negative Pressure Wound / Incision None Ayers Fall Risk Flowsheet Row Most Recent Value Prior Fall Event (Autopopulated from EMR) None found ............filed at 10/20/20232152 History of Falling 0 ............filed at 10/20/20232152 Secondary Diagnosis 15 ............filed at 10/20/20232152 Ambulatory Aids 0 ............filed at 10/20/20232152 Intravenous Therapy/Heparin/Saline Lock 20 ............filed at 10/20/20232152 Gait/Transferring 10 ............filed at 10/20/20232152 Mental Status 0 ............filed at 10/20/20232152 Ayers Fall Risk Score 45 ............filed at 10/20/20232152 Vital Signs 10/19 0700 10/20 0659 10/20 0710/20 0827 Most Recent Temp (??C) 36.3 - 36.9 36.9 36.9 (98.4) 10/20 0809 Pulse 56 - 73 65 65 / 0809 Resp 18 - 19 18 18 10/20 0809 SpO2 (%) 94 - 99 97 97 / 0809 BP 118/47 - 144/65 90/64 90/64 10/20 0809 MAP (mmHg) 65 - 89 73 73 10/20 0809 Default Flowsheet Data (most recent) Endurance Tests No documentation. Default Flowsheet Data (last 48 hours) Oxygen Row Name 10/21/23 0809 10/21/23 0453 10/21/23 0010 10/20/23203110/20/23 1539 Oxygen Therapy/Pulse Ox O2 Therapy None (Room air) None (Room air) None (Room air) None (Room air) -- SpO2 97 % 94 % 95 % 99 % 98 % Row Name 10/20/23 1133 10/20/23 0758 10/19/23203410/19/23 19310/19/23 1525 Oxygen Therapy/Pulse Ox O2 Therapy -- -- None (Room air) -- -- SpO2 98 % 97 % -- 96 % 99 % Nursing Nutrition None Nursing Mobility Activity 10/20 0535 Resting in bed 10/20 0300 Resting in bed 10/20 020 Sleeping 10/20 010 Resting in bed 10/20 0024 Sleeping 10/19 2200 Resting in bed 10/20 1999 Resting in bed 10/19 1800 Chair 10/19 1600 Chair 10/19 1400 Chair 10/19 1200 Chair 10/19 1000 Chair 10/19 0800 Chair 10/19 0600 Resting in bed 10/19 0400 Resting in bed 10/19 0200 Resting in bed 10/19 0000 Resting in bed 10/18 2200 Resting in bed 10/18 2035 Resting in bed 10/18 203 Resting in bed 10/18 2000 Resting in bed 10/18 1700 Resting in bed 10/18 1456 Resting in bed 10/18 1330 Resting in bed 10/18 0814 Resting in bed 10/18 0300 Sleeping 10/18 0100 Sleeping 10/17 2300 Sleeping 10/17 2100 Sleeping 10/17 1900 Resting in bed 10/17 1838 Resting in bed 10/17 1640 Resting in bed 10/17 1422 Resting in bed 10/17 1228 Resting in bed 10/17 1049 Resting in bed Patient Assistance 10/20 0535 Standby assist, set-up cues, supervision of patient - no hands on 10/20 0300 Standby assist, set-up cues, supervision of patient - no hands on 10/20 0100 Standby assist, set-up cues, supervision of patient - no hands on 10/19 1800 Standby assist, set-up cues, supervision of patient - no hands on 10/19 1600 Standby assist, set-up cues, supervision of patient - no hands on 10/19 1400 Standby assist, set-up cues, supervision of patient - no hands on 10/19 1200 Standby assist, set-up cues, supervision of patient - no hands on 10/19 1000 Standby assist, set-up cues, supervision of patient - no hands on 10/19 0800 Standby assist, set-up cues, supervision of patient - no hands on 10/19 0600 Standby assist, set-up cues, supervision of patient - no hands on 10/19 0400 Standby assist, set-up cues, supervision of patient - no hands on 10/19 0200 Standby assist, set-up cues, supervision of patient - no hands on 10/19 0000 Standby assist, set-up cues, supervision of patient - no hands on 10/18 220 Standby assist, set-up cues, supervision of patient - no hands on 10/18 2034 Standby assist, set-up cues, supervision of patient - no hands on 10/18 2033 Standby assist, set-up cues, supervision of patient - no hands on 10/19 1999 Standby assist, set-up cues, supervision of patient - no hands on 10/18 1700 Standby assist, set-up cues, supervision of patient - no hands on 10/18 1456 Standby assist, set-up cues, supervision of patient - no hands on 10/18 1330 Standby assist, set-up cues, supervision of patient - no hands on 10/18 0814 Standby assist, set-up cues, supervision of patient - no hands on 10/17 1838 Standby assist, set-up cues, supervision of patient - no hands on 10/17 1640 Standby assist, set-up cues, supervision of patient - no hands on 10/17 1422 Standby assist, set-up cues, supervision of patient - no hands on 10/17 1228 Standby assist, set-up cues, supervision of patient - no hands on 10/17 1049 Standby assist, set-up cues, supervision of patient - no hands on Repositioned 10/19 0800 Turn self;Other (Comment) (Comment: chair) 10/19 0600 Turn self;Supine 10/19 0400 Turn self;Supine 10/19 0200 Turn self;Supine 10/19 0000 Turn self;Supine 10/18 2200 Turn self;Supine 10/18 2035 Turn self;Supine 10/18 2034 Turn self;Supine 10/18 2000 Turn self 10/18 1700 Turn self;Supine;Semi-fowlers 10/18 1456 Turn self;Supine 10/18 1330 Turn self;Supine;Semi-fowlers 10/18 0814 Turn self;Supine 10/18 0300 Turn self;Semi-fowlers;Pillow support 10/18 0100 Turn self;Left Side;Pillow support 10/17 2300 Turn self;Pillow support 10/17 2100 Turn self 10/17 1900 Turn self 10/17 1838 Supine;Turn self 10/17 1640 Supine;Turn self 10/17 1422 Supine;Turn self 10/17 1228 Supine;Turn self 10/17 1049 Supine;Turn self Head of Bed Elevated 10/20 0535 HOB < 20 05 0300 HOB < 20 10/20 0200 HOB < 20 10/20 0100 HOB < 20 10/20 0024 HOB < 20 10/19 2200 HOB < 20 10/19 2000 HOB < 20 10/19 1800 Other (Comment) (Comment: chair) 10/19 1600 Other (Comment) (Comment: chair) 10/19 1400 Other (Comment) (Comment: chair) 10/19 1200 Other (Comment) (Comment: chair) 10/19 1000 Other (Comment) (Comment: chair) 10/19 0800 Other (Comment) (Comment: chair) 10/19 0600 HOB 30 10/19 0400 HOB 30 10/19 0200 HOB 30 10/19 0000 HOB 30 10/18 2200 HOB 30 10/18 2035 HOB 30 10/18 2034 HOB 30 10/18 2000 HOB 30 10/18 1700 HOB 30 10/18 1456 HOB 30 10/18 1330 HOB 30 10/18 0814 HOB 30 10/18 0300 HOB < 20 10/18 0100 HOB < 20 10/17 2300 HOB < 20 10/17 1900 HOB 30 10/17 1838 HOB 30 10/17 1640 HOB 30 10/17 1422 HOB 30 10/17 1228 HOB 30 10/17 1049 HOB 30 Heels/Feet 10/20 0200 Foot of bed elevated 10/20 0100 Heels elevated off bed 10/20 0024 Other (Comment) 10/19 2200 Foot of bed elevated 10/19 2000 Foot of bed elevated 10/19 0800 Other (Comment) (Comment: chair) 10/19 0600 Heels elevated off bed 10/19 0400 Heels elevated off bed 10/19 0200 Heels elevated off bed 10/19 0000 Heels elevated off bed 10/18 2200 Heels elevated off bed 10/18 2035 Heels elevated off bed 10/18 2034 Heels elevated off bed 10/18 2000 Heels elevated off bed 10/18 1700 Heels elevated off bed;Foot of bed elevated 10/18 1456 Heels elevated off bed;Foot of bed elevated 10/18 1330 Heels elevated off bed;Foot of bed elevated 10/18 0814 Heels elevated off bed 10/18 0300 Heels elevated off bed 10/18 0100 Heels elevated off bed 10/17 1838 Other (Comment) (Comment: SELF) 10/17 1422 Other (Comment) (Comment: SELF) Range of Motion Interventions 10/20 0535 Active;All extremities 10/20 0300 Active;All extremities 10/20 0200 Active;All extremities 10/20 0100 Active;All extremities 10/20 0024 Active;All extremities 10/19 2200 Active;All extremities 10/19 2153 Active;All extremities 10/19 2000 Active;All extremities 10/19 1800 Active;All extremities 10/19 1600 Active;All extremities 10/19 1400 Active;All extremities 10/19 1200 Active;All extremities 10/19 1000 Active;All extremities 10/19 0800 Active;All extremities 10/19 0600 Active;All extremities 10/19 0400 Active;All extremities 10/19 0200 Active;All extremities 10/19 0000 Active;All extremities 10/18 2200 Active;All extremities 10/18 2035 Active;All extremities 10/18 2034 Active;All extremities 10/18 2000 Active;All extremities 10/18 0814 Active;All extremities 10/18 0730 Active;All extremities 10/18 0300 Active;All extremities 10/18 0100 Active;All extremities 10/17 2300 Active;All extremities 10/17 1838 Active;All extremities 10/17 1640 Active;All extremities 10/17 1422 Active;All extremities 10/17 1228 Active;All extremities 10/17 1049 Active;All extremities 10/17 1015 Active;All extremities Type of Device 10/18 2033 Mechanical compression Mechanical Compression Site 10/18 2033 Bilateral Mechanical Compression Type 10/18 2033 IPC/SCD Mechanical Compression Status 10/18 2033 Off Default Flowsheet Data (last 24 hours) Sitter Documentation Row Name 10/21/23 0535 10/21/23 0300 10/21/23 0100 Sitter Documentation Sitter Continued Continued Continued Sitter Type Medical/Safety Medical/Safety Medical/Safety RN Safety Check -- -- No unsafe behaviors observed, safe environment maintained Row Name 10/20/23 2300 Sitter Documentation Sitter Continued Sitter Type Medical/Safety RN Safety Check No unsafe behaviors observed, safe environment maintained All Meds/Most Recent Administrations furosemide (LASIX) 10 mg/mL injection 40 mg [[id number]] Ordering Provider: Isidro Hahn MD Status: Completed (Past End Date/Time) Ordered On: 10/07/23 1135 Starts/Ends: 10/07/23 1135 - 10/07/23 1146 Ordered Dose (Remaining/Total): 40 mg (0/1) Route: intravenous Frequency: Once Ordered Rate/Order Duration: -- / -- Admin Instructions: For IV push: administer doses < 160 mg at a rate of 20 -40 mg/min. Doses >/= 160 mg should be administered no faster than 4 mg/min. Room temperature only Line Med Link Info Comment Peripheral IV 10/07/23 20 G Left Antecubital 10/07/23 1146 by Augusta Spencer RN -- Timestamps Action Dose Route Other Information 10/07/23 114 Given 40 mg intravenous Performed by: Augusta Spencer RN Scanned Package: 3522-3359-08 enoxaparin (LOVENOX) syringe 30 mg [[id number]] Ordering Provider: Alejandro Guillaume MD Status: Dispensed Ordered On: 10/07/23 1331 Start: 10/07/232099 Ordered Dose (Remaining/Total): 30 mg (--/--) Route: subcutaneous Frequency: Daily (for enoxaparin) Ordered Rate/Order Duration: -- / -- Timestamps Action Dose Route / Site Other Information 10/20/232151 Given 30 mg subcutaneous Left Upper Abdomen Performed by: Melania Preciado RN Scanned Package: 25248-013-23 amLODIPine (NORVASC) tablet 10 mg [[id number]] Ordering Provider: Trisha Montiel MD Status: Completed (Past End Date/Time) Ordered On: 10/07/231355 Starts/Ends: 10/07/231356 - 10/07/231357 Ordered Dose (Remaining/Total): 10 mg (0) Route: oral Frequency: Once Ordered Rate/Order Duration: -- / -- Timestamps Action Dose Route Other Information 10/07/231357 Given 10 mg oral Performed by: Codi Hicks RN Scanned Package: 62996-048-88 acetaminophen (TYLENOL) tablet 650 mg [[id number]] Ordering Provider: Rosa Jade NP Status: Dispensed Ordered On: 10/07/231551 Start: 10/07/231551 Ordered Dose (Remaining/Total): 650 mg (--/--) Route: oral Frequency: Every 6 hours PRN Ordered Rate/Order Duration: -- / -- Timestamps Action Dose Route Other Information 10/19/232049 Given 650 mg oral Performed by: Sudarshan Cabrera requested from: Court Cabrera RN Scanned Package: 44003-511-75, 42877-359-90 amLODIPine (NORVASC) tablet 10 mg [[id number]] Ordering Provider: Rosa Jade NP Status: Discontinued (Past End Date/Time) Ordered On: 10/07/231551 Starts/Ends: 10/07/232099 - 10/07/232017 Ordered Dose (Remaining/Total): 10 mg (--/--) Route: oral Frequency: Nightly Ordered Rate/Order Duration: -- / -- (No admins scheduled or recorded for this medication) atorvastatin (LIPITOR) tablet 20 mg [[id number]] Ordering Provider: Rosa Jade NP Status: Dispensed Ordered On: 10/07/231551 Start: 10/07/232099 Ordered Dose (Remaining/Total): 20 mg (--/--) Route: oral Frequency: Nightly Ordered Rate/Order Duration: -- / -- Timestamps Action Dose Route Other Information 10/20/232152 Given 20 mg oral Performed by: Melania Preciado RN Scanned Package: 68447-241-43 benztropine (COGENTIN) tablet 1.5 mg [[id number]] Ordering Provider: Rosa Jade NP Status: Discontinued (Past End Date/Time) Ordered On: 10/07/231551 Starts/Ends: 10/07/232099 - 10/13/231622 Ordered Dose (Remaining/Total): 1.5 mg (--/--) Route: oral Frequency: 2 times daily Ordered Rate/Order Duration: -- / -- Timestamps Action Dose Route Other Information 10/13/23 09 Given 1.5 mg oral Performed by: Homer Pavon RN Scanned Package: 09718-632-54, 71543-523-63 famotidine (PEPCID) tablet 10 mg [[id number]] Ordering Provider: Rosa Jade NP Status: Dispensed Ordered On: 10/07/231551 Start: 10/07/231552 Ordered Dose (Remaining/Total): 10 mg (--/--) Route: oral Frequency: Daily Ordered Rate/Order Duration: -- / -- Timestamps Action Dose Route Other Information 10/20/23 0806 Given 10 mg oral Performed by: Alessandra Cervantes LPN Scanned Package: 60868-098-14 ferrous sulfate delayed release tablet 65 mg of elemental iron [[id number]] Ordering Provider: Rosa Jade NP Status: Dispensed Ordered On: 10/07/231551 Start: 10/07/232099 Ordered Dose (Remaining/Total): 65 mg of elemental iron (--/--) Route: oral Frequency: 2 times daily Ordered Rate/Order Duration: -- / -- Admin Instructions: 325 MG OF FERROUS SULFATE = 65 MG OF ELEMENTAL IRON Timestamps Action Dose Route Other Information 10/20/23 2153 Given 65 mg of elemental iron oral Performed by: Melania Preciado RN Scanned Package: [id number] fluticasone propionate (FLONASE) 50 mcg/actuation nasal spray 2 spray [[id number]] Ordering Provider: Rosa Jade NP Status: Dispensed Ordered On: 10/07/23 155 Start: 10/07/23 155 Ordered Dose (Remaining/Total): 2 spray (--/--) Route: each nostril Frequency: Daily Ordered Rate/Order Duration: -- / -- Timestamps Action Dose Route Other Information 10/20/23 0807 Given 2 spray each nostril Performed by: Alessandra Cervantes LPN Scanned Package: [address]-3 risperiDONE (RisperDAL) tablet 2 mg [[id number]] Ordering Provider: Rosa Jade NP Status: Discontinued (Past End Date/Time) Ordered On: 10/07/23 155 Starts/Ends: 10/07/23 2100 - 10/13/23 1200 Ordered Dose (Remaining/Total): 2 mg (--/--) Route: oral Frequency: Nightly Ordered Rate/Order Duration: -- / -- Timestamps Action Dose Route Other Information 10/12/232118 Given 2 mg oral Performed by: Paz Palencia Scanned Package: 48229-322-28 furosemide (LASIX) 10 mg/mL injection 40 mg [[id number]] Ordering Provider: Rosa Jade NP Status: Discontinued (Past End Date/Time) Ordered On: 10/07/23 1555 Starts/Ends: 10/07/23 1600 - 10/16/23 0500 Ordered Dose (Remaining/Total): 40 mg (--/--) Route: intravenous Frequency: 2 times daily (for diuretics) Ordered Rate/Order Duration: -- / -- Admin Instructions: For IV push: administer doses < 160 mg at a rate of 20 -40 mg/min. Doses >/= 160 mg should be administered no faster than 4 mg/min. Room temperature only Line Med Link Info Comment Peripheral IV 10/07/23 20 G Left Antecubital 10/07/23 1715 by Nadege Sabillon RN -- Timestamps Action Dose Route Other Information 10/09/231803 Given 40 mg intravenous Performed by: Deborah Celeste RN Scanned Package: 8064-6188-55 ondansetron (ZOFRAN) injection 4 mg [[id number]] Ordering Provider: Rosa Jade NP Status: Verified Ordered On: 10/07/231554 Start: 10/07/231552 Ordered Dose (Remaining/Total): 4 mg (--/--) Route: intravenous Frequency: Every 6 hours PRN Ordered Rate/Order Duration: -- / 2 Minutes (No admins scheduled or recorded for this medication) dextrose oral liquid liquid 15 g [[id number]] Ordering Provider: Rosa Jade NP Status: Verified Ordered On: 10/07/231554 Start: 10/07/231553 Ordered Dose (Remaining/Total): 15 g (--/--) Route: [...] medication) dextrose (D10W) 10% bolus 250 mL [[id number]] Ordering Provider: Rosa Jade NP Status: Verified Ordered On: 10/07/231554 Start: 10/07/231553 Ordered Dose (Remaining/Total): 250 mL (--/--) Route: intravenous Frequency: Every 15 min PRN Ordered Rate/Order Duration: 1,000 mL/hr / 15 Minutes Admin Instructions: After treatment for hypoglycemia, recheck BG followed by treatment every 15 minutes until the BG is greater than 100 mg/dL. Then check BG 1 hour post treatment. If BG is less olmm996 mg/dL, repeat Q15 minute BG checks and treatment. Call MD for each episode of hypoglycemia. (No admins scheduled or recorded for this medication) glucagon injection 1 mg [[id number]] Ordering Provider: Rosa Jade NP Status: Verified Ordered On: 10/07/231554 Start: 10/07/231553 Ordered Dose (Remaining/Total): 1 mg (--/--) Route: [...] (LANTUS, SEMGLEE) 100 unit/mL injection 15 Units [[id number]] Ordering Provider: Rosa Jade NP Status: Dispensed Ordered On: 10/07/231554 Start: 10/07/23 2100 Ordered Dose (Remaining/Total): 0.25 Units/kg (--/--) Route: subcutaneous Frequency: Nightly Ordered Rate/Order Duration: -- / -- Admin Instructions: Do not hold if NPO. Do not mix with other insulins Timestamps Action Dose Route / Site Other Information 10/20/232151 Given 15 Units subcutaneous Left Lower Abdomen Performed by: Melania Preciado RN Scanned Package: 71198-603-85 insulin lispro (HumaLOG, ADMELOG) 100 unit/mL injection 5 Units [[id number]] Ordering Provider: Rosa Jade NP Status: Dispensed Ordered On: 10/07/231554 Start: 10/07/23 1800 Ordered Dose (Remaining/Total): 0.083 Units/kg (--/--) Route: [...] Action Dose Route / Site Other Information 10/20/23 1802 Given 5 Units subcutaneous Left Lower Abdomen Performed by: Alessandra Cervantes LPN Scanned Package: 3280-0719-87 insulin lispro (HumaLOG, ADMELOG) 100 unit/mL injection 0-10 Units [[id number]] Ordering Provider: Rosa Jade NP Status: Dispensed Ordered On: 10/07/231554 Start: 10/07/23 1800 Ordered Dose (Remaining/Total): 0-10 Units (--/--) Route: [...] Action Dose Route / Site Other Information 10/20/23 180 Given 2 Units subcutaneous Right Lower Abdomen Performed by: Alessandra Cervantes LPN Scanned Package: 2618-2535-12 insulin lispro (HumaLOG, ADMELOG) 100 unit/mL injection 0-5 Units [[id number]] Ordering Provider: Rosa Jade NP Status: Dispensed Ordered On: 10/07/231554 Start: 10/07/23 2100 Ordered Dose (Remaining/Total): 0-5 Units (--/--) Route: [...] Action Dose Route / Site Other Information 10/19/232025 Given 2 Units subcutaneous Right Lower Abdomen Performed by: Sudarshan Cabrera requested from: Court Cabrera RN Scanned Package: 6751-8775-49 amLODIPine (NORVASC) tablet 10 mg [[id number]] Ordering Provider: Gemma Jolly MD Status: Discontinued (Past End Date/Time) Ordered On: 10/07/232017 Starts/Ends: 10/08/23 2100 - 10/08/23 160 Ordered Dose (Remaining/Total): 10 mg (--/--) Route: oral Frequency: Nightly Ordered Rate/Order Duration: -- / -- (No admins scheduled or recorded for this medication) metoprolol tartrate (LOPRESSOR) immediate release tablet 25 mg [[id number]] Ordering Provider: Bev Adames MD Status: Discontinued (Past End Date/Time) Ordered On: 10/08/23 1605 Starts/Ends: 10/08/23 2100 - 10/17/23 0920 Ordered Dose (Remaining/Total): 25 mg (--/--) Route: oral Frequency: 2 times daily Ordered Rate/Order Duration: -- / -- Timestamps Action Dose Route Other Information 10/17/23 0824 Given 25 mg oral Performed by: Nimo Pérez RN Scanned Package: 01708-165-75 ramelteon (ROZEREM) tablet 8 mg [[id number]] Ordering Provider: Sujatha Montes De Oca NP Status: Dispensed Ordered On: 10/08/232253 Start: 10/08/232253 Ordered Dose (Remaining/Total): 8 mg (--/--) Route: oral Frequency: Nightly PRN Ordered Rate/Order Duration: -- / -- Timestamps Action Dose Route Other Information 10/13/232252 Given 8 mg oral Performed by: Court Cabrera RN Scanned Package: 49735-380-16 haloperidol (HALDOL) injection 5 mg [[id number]] Ordering Provider: Sujatha Montes De Oca NP Status: Completed (Past End Date/Time) Ordered On: 10/08/232309 Starts/Ends: 10/08/232344 - 10/08/232312 Ordered Dose (Remaining/Total): 5 mg (0/1) Route: intravenous Frequency: Once Ordered Rate/Order Duration: -- / -- Admin Instructions: If administered IV push, administer over 5 min for adults Timestamps Action Dose Route Other Information 10/08/232312 Given 5 mg intravenous Performed by: Court Cabrera RN Scanned Package: 29579-142-95 haloperidol (HALDOL) injection 5 mg [[id number]] Ordering Provider: Marci Mcgregor NP Status: Discontinued (Past End Date/Time) Ordered On: 10/10/2328 Starts/Ends: 10/10/2399 - 10/10/2329 Ordered Dose (Remaining/Total): 5 mg (1/1) Route: intramuscular Frequency: Once Ordered Rate/Order Duration: -- / -- Admin Instructions: If administered IV push, administer over 5 min for adults (No admins scheduled or recorded for this medication) OLANZapine (ZyPREXA) 5 mg in sterile water 1 mL (5 mg/mL) syringe [[id number]] Ordering Provider: Marci Mcgregor NP Status: Completed (Past End Date/Time) Ordered On: 10/10/2329 Starts/Ends: 10/10/23114 - 10/10/231926 Ordered Dose (Remaining/Total): 5 mg (0/1) Route: intramuscular Frequency: Once Ordered Rate/Order Duration: -- / -- Admin Instructions: Reconstitute 10 mg vial with 2.1 mL SWFI. Resulting solution is ~5 mg/mL. Useimmediately (within 1 hour) following reconstitution. Timestamps Action Dose Route / Site Other Information 10/10/231926 Given 5 mg intramuscular Left Deltoid Performed by: Breanna Jones RN Scanned Package: 45246-430-14, 6459-5513-99 OLANZapine (ZyPREXA) 10 mg injection - ADS Override Pull [[id number]] Status: Completed (Past End Date/Time) Ordered On: 10/10/23 0034 Starts/Ends: 10/10/23 0034 - 10/10/23 0036 Ordered Dose (Remaining/Total): -- (0/1) Route: -- Frequency: -- Ordered Rate/Order Duration: -- / -- Admin Instructions: Created by cabinet override Note to pharmacy: Created by cabinet override Reconstitute 10 mg vial with 2.1 mL SWFI. Resultingsolution is ~5 mg/mL. Use immediately (within 1 hour) following reconstitution. Timestamps Action Dose Route / Site / Linked Line Other Information 10/10/23 0036 Given 5 mg -- Performed by: Melania Preciado RN amLODIPine (NORVASC) tablet 5 mg [[id number]] Ordering Provider: Wally Plummer MD Status: Discontinued (Past End Date/Time) Ordered On: 10/10/23 1056 Starts/Ends: 10/10/23 1130 - 10/11/23 0836 Ordered Dose (Remaining/Total): 5 mg (--/--) Route: oral Frequency: Daily Ordered Rate/Order Duration: -- / -- Timestamps Action Dose Route Other Information 10/10/23 1312 Given 5 mg oral Performed by: Alessandra Cervantes LPN Scanned Package: 48231-440-88 amLODIPine (NORVASC) tablet 10 mg [[id number]] Ordering Provider: Wally Plummer MD Status: Discontinued (Past End Date/Time) Ordered On: 10/11/23 0836 Starts/Ends: 10/11/23 0915 - 10/16/23 0501 Ordered Dose (Remaining/Total): 10 mg (--/--) Route: oral Frequency: Daily Ordered Rate/Order Duration: -- / -- Timestamps Action Dose Route Other Information 10/15/23 1259 Given 10 mg oral Performed by: Latosha Mendez RN Scanned Package: 29681-572-98 risperiDONE (RisperDAL) tablet 1 mg [[id number]] Ordering Provider: Deepti Sands MD Status: Dispensed Ordered On: 10/13/23 1200 Start: 10/13/232099 Ordered Dose (Remaining/Total): 1 mg (--/--) Route: oral Frequency: Nightly Ordered Rate/Order Duration: -- / -- Timestamps Action Dose Route Other Information 10/20/232152 Given 1 mg oral Performed by: Melania Preciado RN Scanned Package: 02431-155-02 OLANZapine (ZyPREXA) 2.5 mg in sterile water 0.5 mL (5 mg/mL) syringe [[id number]] Ordering Provider: Deepti Sands MD Status: Verified Ordered On: 10/13/231199 Start: 10/13/231158 Ordered Dose (Remaining/Total): 2.5 mg (--/--) Route: intramuscular Frequency: Every 12 hours PRN Ordered Rate/Order Duration: -- / -- Admin Instructions: If unable to take PO Reconstitute 10 mg vial with 2.1 mL SWFI. Resulting solution is ~5 mg/mL. Use immediately (within 1 hour) following reconstitution. (No admins scheduled or recorded for this medication) OLANZapine (ZyPREXA) tablet 2.5 mg [[id number]] Ordering Provider: Deepti Sands MD Status: Dispensed Ordered On: 10/13/231199 Start: 10/13/231199 Ordered Dose (Remaining/Total): 2.5 mg (--/--) Route: oral Frequency: 2 times daily PRN Ordered Rate/Order Duration: -- / -- (No admins scheduled or recorded for this medication) benztropine (COGENTIN) tablet 1.5 mg [[id number]] Ordering Provider: Bev Adames MD Status: Dispensed Ordered On: 10/13/231622 Start: 10/14/232099 Ordered Dose (Remaining/Total): 1.5 mg (--/--) Route: oral Frequency: Nightly Ordered Rate/Order Duration: -- / -- Timestamps Action Dose Route Other Information 10/20/232152 Given 1.5 mg oral Performed by: Melania Preciado RN Scanned Package: 91406-748-44, 75624-235-39 heparin 1,000 unit/mL injection 1.5-6.9 mL [[id number]] Ordering Provider: Jimbo Strauss MD Status: Verified (Past End Date/Time) Ordered On: 10/16/23942 Starts/Ends: 10/16/231014 - 10/17/23 101 Ordered Dose (Remaining/Total): 1.5-6.9 mL (06/22) Route: intra-catheter Frequency: Once Ordered Rate/Order Duration: -- / -- Admin Instructions: Indwell volume of catheter lumens post treatment. Give volume based upon underwater hunter trapper's recommendation (usual range 1.2 - 3 mL) in each lumen. (No admins scheduled or recorded for this medication) heparin 1,000 unit/mL injection 1,500 Units [[id number]] Ordering Provider: Jimbo Strauss MD Status: Verified (Past End Date/Time) Ordered On: 10/16/23942 Starts/Ends: 10/16/231014 - 10/17/23 101 Ordered Dose (Remaining/Total): 1,500 Units (06/22) Route: dialysis circuit Frequency: Once Ordered Rate/Order Duration: -- / -- Admin Instructions: Administered at start of dialysis treatment. (No admins scheduled or recorded for this medication) heparin 1,000 unit/mL injection 500 Units [[id number]] Ordering Provider: Jimbo Strauss MD Status: Verified (Past End Date/Time) Ordered On: 10/16/23942 Starts/Ends: 10/16/231014 - 10/16/23 1259 Ordered Dose (Remaining/Total): 500 Units (3/3) Route: dialysis circuit Frequency: Every 1 hour Ordered Rate/Order Duration: -- / -- Admin Instructions: Until treatment completed. Hold heparin last hour of treatment. (No admins scheduled or recorded for this medication) albumin 25 % bottle 25 g [[id number]] Ordering Provider: Jimbo Strauss MD Status: Verified (Past End Date/Time) Ordered On: 10/16/23942 Starts/Ends: 10/16/23942 - 10/16/232237 Ordered Dose (Remaining/Total): 25 g (3/3) Route: intravenous Frequency: As needed Ordered Rate/Order Duration: -- / -- Admin Instructions: To be administered only in dialysis. Not to exceed 25 gm. (Second priority) Question Answer Comment BP threshold for treatment:: SBP -- Systolic Blood Pressure less than (mmHg): 85 -- (No admins scheduled or recorded for this medication) lidocaine (PF) (XYLOCAINE) 10 mg/mL (1 %) preservative free injection [[id number]] Ordering Provider: Marcus Mcdonald MD Status: Completed (Past End Date/Time) Ordered On: 10/15/23 0912 Frequency: As needed Timestamps Action Dose Route / Site Other Information 10/15/23 0908 Given 10 mL Injection Other (Comment) Performed by: Marcus Mcdonald MD Documented by: Kita Spencer RN Comments: right chest for tunnel calcium acetate(phosphat bind) (PHOSLO) capsule 1,334 mg [[id number]] Ordering Provider: Jimbo Strauss MD Status: Discontinued (Past End Date/Time) Ordered On: 10/15/23 1312 Starts/Ends: 10/15/23 1330 - 10/16/23 0501 Ordered Dose (Remaining/Total): 1,334 mg (--/--) Route: oral Frequency: 3 times daily with meals Ordered Rate/Order Duration: -- / -- Admin Instructions: Take with food Timestamps Action Dose Route Other Information 10/15/23 1845 Given 1,334 mg oral Performed by: Latosha Mendez RN Scanned Package: 47058-873-17, 68154-098-94 calcium acetate(phosphat bind) (PHOSLO) capsule 667 mg [[id number]] Ordering Provider: Jimbo Strauss MD Status: Dispensed Ordered On: 10/16/23 0500 Start: 10/16/23 0800 Ordered Dose (Remaining/Total): 667 mg (--/--) Route: oral Frequency: 3 times daily with meals Ordered Rate/Order Duration: -- / -- Admin Instructions: Take with food Timestamps Action Dose Route Other Information 10/20/23 1802 Given 667 mg oral Performed by: Alessandra Cervantes LPN Scanned Package: 37055-788-46 amLODIPine (NORVASC) tablet 5 mg [[id number]] Ordering Provider: Jimbo Strauss MD Status: Discontinued (Past End Date/Time) Ordered On: 10/16/23 0501 Starts/Ends: 10/16/23 0900 - 10/17/23 0920 Ordered Dose (Remaining/Total): 5 mg (--/--) Route: oral Frequency: Daily Ordered Rate/Order Duration: -- / -- Timestamps Action Dose Route Other Information 10/17/23 0824 Given 5 mg oral Performed by: Nimo Pérez RN Scanned Package: 97134-440-09 heparin 1,000 unit/mL injection 1.5-6.9 mL [[id number]] Ordering Provider: Jimbo Strauss MD Status: Verified (Past End Date/Time) Ordered On: 10/16/23942 Starts/Ends: 10/16/231014 - 10/17/23 1015 Ordered Dose (Remaining/Total): 1.5-6.9 mL (06/22) Route: intra-catheter Frequency: Once Ordered Rate/Order Duration: -- / -- Admin Instructions: Indwell volume of catheter lumens post treatment. Give volume based upon underwater hunter trapper's recommendation (usual range 1.2 - 3 mL) in each lumen. (No admins scheduled or recorded for this medication) heparin 1,000 unit/mL injection 1,500 Units [[id number]] Ordering Provider: Jimbo Strauss MD Status: Dispensed (Past End Date/Time) Ordered On: 10/16/23942 Starts/Ends: 10/16/23 101 - 10/17/23 1015 Ordered Dose (Remaining/Total): 1,500 Units (06/22) Route: dialysis circuit Frequency: Once Ordered Rate/Order Duration: -- / -- Admin Instructions: Administered at start of dialysis treatment. (No admins scheduled or recorded for this medication) heparin 1,000 unit/mL injection 500 Units [[id number]] Ordering Provider: Jimbo Strauss MD Status: Verified (Past End Date/Time) Ordered On: 10/16/23942 Starts/Ends: 10/16/23 101 - 10/16/23 1259 Ordered Dose (Remaining/Total): 500 Units (/3) Route: dialysis circuit Frequency: Every 1 hour Ordered Rate/Order Duration: -- / -- Admin Instructions: To be given in HD. Until treatment completed. Hold heparin last hour of treatment. (No admins scheduled or recorded for this medication) albumin 25 % bottle 25 g [[id number]] Ordering Provider: Jimbo Strauss MD Status: Verified Ordered On: 10/16/23 0943 Start: 10/16/23942 Ordered Dose (Remaining/Total): 25 g (3/3) Route: intravenous Frequency: As needed Ordered Rate/Order Duration: -- / -- Admin Instructions: To be administered only in dialysis. Not to exceed 25 gm. (Second priority) Question Answer Comment BP threshold for treatment:: SBP -- Systolic Blood Pressure less than (mmHg): 85 -- (No admins scheduled or recorded for this medication) polyethylene glycol (MIRALAX) packet 17 g [[id number]] Ordering Provider: Gill Gamboa MD Status: Dispensed Ordered On: 10/16/23 1048 Start: 10/16/23 1130 Ordered Dose (Remaining/Total): 17 g (--/--) Route: oral Frequency: Daily Ordered Rate/Order Duration: -- / -- Timestamps Action Dose Route Other Information 10/20/23 0806 Given 17 g oral Performed by: Alessandra Cervantes LPN Scanned Package: 09345-574-63 metoprolol tartrate (LOPRESSOR) immediate release split tablet 6.25 mg [[id number]] Ordering Provider: Jimbo Strauss MD Status: Dispensed Ordered On: 10/17/23 0920 Start: 10/17/23 2100 Ordered Dose (Remaining/Total): 6.25 mg (--/--) Route: oral Frequency: 2 times daily Ordered Rate/Order Duration: -- / -- Timestamps Action Dose Route Other Information 10/20/23 2153 Given 6.25 mg oral Performed by: Melania Preciado RN Scanned Package: 8929-8020-36 OT ASSESSMENT FLOWSHEET LAST DOCUMENTED (most recent) OT Evaluation - 10/20/23 2340 Pain Assessment Pain Assessment No/denies pain OT TREATMENT FLOWSHEET LAST DOCUMENTED (most recent) OT Treatment - 10/20/23 2340 Pain Assessment Pain Assessment No/denies pain OT Notes Notes from 10/19/23 through 10/21/23 No notes of this type exist for this encounter. OT ASSESSMENT FLOWSHEET LAST DOCUMENTED (most recent) PT Evaluation - 10/20/232339 Pain Assessment Pain Assessment No/denies pain PT TREATMENT (most recent) PT Treatment - 10/20/232339 Pain Assessment Pain Assessment No/denies pain PT Notes Notes from 10/19/23 through 10/21/23 No notes of this type exist for this encounter. 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 TIMBER SIZER OPERATOR TREATMENT (most recent) TIMBER SIZER OPERATOR Treatment - 10/20/232339 Pain Assessment Pain Assessment No/denies pain TIMBER SIZER OPERATOR Notes Notes from 10/19/23 through 10/21/23 No notes of this type exist for this encounter. Dialysis Treatment Flowsheet Row Most Recent Value Treatment Start Patient Status Departed filed at 10/16/2023 1235 Verification of Patient's Name/ Patient stated filed at 10/16/2023 0935 Consent Obtained Yes filed at 10/16/2023 0935 Timeout Performed Yes filed at 10/16/2023 0935 HBsAg Result Negative filed at 10/16/2023 0935 Incapacitated Nurse Education Completed? ([facility] Use Only) N/A filed at 10/16/2023 0935 Treatment Status Completed filed at 10/17/2023 1248 Alarms Test Passed? Yes filed at 10/16/2023 0935 Air Detector On? Yes filed at 10/16/2023 0935 Machine Parameters Pre-Treatment Comments pt. lying in bed quietly. no c/o pain at this time. fully alert and orientedand capable of expressing needs. dialysis catheter prepped for treatment. no s/s of infection notedto site filed at 10/19/2023 0910 During Hemodialysis Assessment Blood Flow Rate (mL/min) 300 mL/min filed at 10/17/2023 0917 Dialysate Flow Rate (mL/min) 600 mL/min filed at 10/17/2023 0917 Arterial Pressure (mmHg) 80 mmHg filed at 10/17/2023 0917 Venous Pressure (mmHg) 80 filed at 10/17/2023 0917 Transmembrane Pressure (mmHg) 40 mmHg filed at 10/17/2023 0917 Transducer Checked? Yes filed at 10/17/2023 0917 Access Checked/Connections Tight? Yes filed at 10/17/2023 09 All Connections Secured? Yes filed at 10/17/2023 0917 Saline Line Double Clamped? Yes filed at 10/17/2023 0917 Venous Parameters Set? Yes filed at 10/17/2023 0917 Arterial Parameters Set? Yes filed at 10/17/2023 0917 Air Foam Detector Engaged? Yes filed at 10/17/2023 0917 Treatment Status Completed filed at 10/17/2023 1248 Hemodialysis Complications/Interventions Post-Hemodialysis Assessment Rinseback Volume (mL) 500 mL filed at 10/17/2023 1248 Dialyzer Clearance Lightly streaked filed at 10/17/2023 1248 Duration of Treatment (min) 210 minutes filed at 10/17/2023 1248 Treatment Status Completed filed at 10/17/2023 1248 Patient Status Departed filed at 10/16/2023 1235 Patient Response to Treatment tolerated well filed at 10/17/2023 1248 Net UF 200 mL filed at 10/19/2023 1258 Post-Hemodialysis Comments dialysis terminated at 1253. uf goal not reached d/t low blood pressures. uf pump was turned off during treatment at 1000. filed at 10/19/2023 1258 Post-Hemodialysis Handoff , Meds and Admin Active Only All Meds/Most Recent Administrations furosemide (LASIX) 10 mg/mL injection 40 mg [[id number]] Ordering Provider: Isidro Hahn MD Status: Completed (Past End Date/Time) Ordered On: 10/07/23 1135 Starts/Ends: 10/07/23 1135 - 10/07/23 1146 Ordered Dose (Remaining/Total): 40 mg (0/1) Route: intravenous Frequency: Once Ordered Rate/Order Duration: -- / -- Admin Instructions: For IV push: administer doses < 160 mg at a rate of 20 -40 mg/min. Doses >/= 160 mg should be administered no faster than 4 mg/min. Room temperature only Line Med Link Info Comment Peripheral IV 10/07/23 20 G Left Antecubital 10/07/23 1146 by Augusta Spencer RN -- Timestamps Action Dose Route Other Information 10/07/23 1146 Given 40 mg intravenous Performed by: Augusta Spencer RN Scanned Package: 5373-1293-83 enoxaparin (LOVENOX) syringe 30 mg [[id number]] Ordering Provider: Alejandro Guillaume MD Status: Dispensed Ordered On: 10/07/23 1331 Start: 10/07/23 2100 Ordered Dose (Remaining/Total): 30 mg (--/--) Route: subcutaneous Frequency: Daily (for enoxaparin) Ordered Rate/Order Duration: -- / -- Timestamps Action Dose Route / Site Other Information 10/20/23 215 Given 30 mg subcutaneous Left Upper Abdomen Performed by: Melania Preciado RN Scanned Package: 56820-808-99 amLODIPine (NORVASC) tablet 10 mg [[id number]] Ordering Provider: Trisha Montiel MD Status: Completed (Past End Date/Time) Ordered On: 10/07/23 135 Starts/Ends: 10/07/23 1357 - 10/07/23 1358 Ordered Dose (Remaining/Total): 10 mg (0/1) Route: oral Frequency: Once Ordered Rate/Order Duration: -- / -- Timestamps Action Dose Route Other Information 10/07/23 1358 Given 10 mg oral Performed by: Codi Hicks RN Scanned Package: 35831-199-63 acetaminophen (TYLENOL) tablet 650 mg [[id number]] Ordering Provider: Rosa Jade NP Status: Dispensed Ordered On: 10/07/23 1552 Start: 10/07/23 155 Ordered Dose (Remaining/Total): 650 mg (--/--) Route: oral Frequency: Every 6 hours PRN Ordered Rate/Order Duration: -- / -- Timestamps Action Dose Route Other Information 10/19/232049 Given 650 mg oral Performed by: Sudarshan Cabrera requested from: Court Cabrera RN Scanned Package: 29303-142-58, 69415-250-95 atorvastatin (LIPITOR) tablet 20 mg [[id number]] Ordering Provider: Rosa Jade NP Status: Dispensed Ordered On: 10/07/231551 Start: 10/07/232099 Ordered Dose (Remaining/Total): 20 mg (--/--) Route: oral Frequency: Nightly Ordered Rate/Order Duration: -- / -- Timestamps Action Dose Route Other Information 10/20/232152 Given 20 mg oral Performed by: Melania Preciado RN Scanned Package: 26552-443-34 famotidine (PEPCID) tablet 10 mg [[id number]] Ordering Provider: Rosa Jade NP Status: Dispensed Ordered On: 10/07/231551 Start: 10/07/231552 Ordered Dose (Remaining/Total): 10 mg (--/--) Route: oral Frequency: Daily Ordered Rate/Order Duration: -- / -- Timestamps Action Dose Route Other Information 10/20/23805 Given 10 mg oral Performed by: Alessandra Cervantes LPN Scanned Package: 41733-882-98 ferrous sulfate delayed release tablet 65 mg of elemental iron [[id number]] Ordering Provider: Rosa Jade NP Status: Dispensed Ordered On: 10/07/231551 Start: 10/07/232099 Ordered Dose (Remaining/Total): 65 mg of elemental iron (--/--) Route: oral Frequency: 2 times daily Ordered Rate/Order Duration: -- / -- Admin Instructions: 325 MG OF FERROUS SULFATE = 65 MG OF ELEMENTAL IRON Timestamps Action Dose Route Other Information 10/20/232152 Given 65 mg of elemental iron oral Performed by: Melania Preciado RN Scanned Package: [id number] fluticasone propionate (FLONASE) 50 mcg/actuation nasal spray 2 spray [[id number]] Ordering Provider: Rosa Jade NP Status: Dispensed Ordered On: 10/07/231551 Start: 10/07/231552 Ordered Dose (Remaining/Total): 2 spray (--/--) Route: each nostril Frequency: Daily Ordered Rate/Order Duration: -- / -- Timestamps Action Dose Route Other Information 10/20/23 08 Given 2 spray each nostril Performed by: Alessandra Cervantes LPN Scanned Package: [address]-7 ondansetron (ZOFRAN) injection 4 mg [[id number]] Ordering Provider: Rosa Jade NP Status: Verified Ordered On: 10/07/231554 Start: 10/07/231552 Ordered Dose (Remaining/Total): 4 mg (--/--) Route: intravenous Frequency: Every 6 hours PRN Ordered Rate/Order Duration: -- / 2 Minutes (No admins scheduled or recorded for this medication) dextrose oral liquid liquid 15 g [[id number]] Ordering Provider: Rosa Jade NP Status: Verified Ordered On: 10/07/231554 Start: 10/07/231553 Ordered Dose (Remaining/Total): 15 g (--/--) Route: [...] medication) dextrose (D10W) 10% bolus 250 mL [[id number]] Ordering Provider: Rosa Jade NP Status: Verified Ordered On: 10/07/231554 Start: 10/07/231553 Ordered Dose (Remaining/Total): 250 mL (--/--) Route: intravenous Frequency: Every 15 min PRN Ordered Rate/Order Duration: 1,000 mL/hr / 15 Minutes Admin Instructions: After treatment for hypoglycemia, recheck BG followed by treatment every 15 minutes until the BG is greater than 100 mg/dL. Then check BG 1 hour post treatment. If BG is less [id number] mg/dL, repeat Q15 minute BG checks and treatment. Call MD for each episode of hypoglycemia. (No admins scheduled or recorded for this medication) glucagon injection 1 mg [[id number]] Ordering Provider: Rosa Jade NP Status: Verified Ordered On: 10/07/231554 Start: 10/07/231553 Ordered Dose (Remaining/Total): 1 mg (--/--) Route: [...] (LANTUS, SEMGLEE) 100 unit/mL injection 15 Units [[id number]] Ordering Provider: Rosa Jade NP Status: Dispensed Ordered On: 10/07/231554 Start: 10/07/23 2100 Ordered Dose (Remaining/Total): 0.25 Units/kg (--/--) Route: subcutaneous Frequency: Nightly Ordered Rate/Order Duration: -- / -- Admin Instructions: Do not hold if NPO. Do not mix with other insulins Timestamps Action Dose Route / Site Other Information 10/20/232151 Given 15 Units subcutaneous Left Lower Abdomen Performed by: Melania Preciado RN Scanned Package: [id number] insulin lispro (HumaLOG, ADMELOG) 100 unit/mL injection 5 Units [[id number]] Ordering Provider: Rosa Jade NP Status: Dispensed Ordered On: 10/07/231554 Start: 10/07/23 1800 Ordered Dose (Remaining/Total): 0.083 Units/kg (--/--) Route: [...] Action Dose Route / Site Other Information 10/20/23 180 Given 5 Units subcutaneous Left Lower Abdomen Performed by: Alessandra Cervantes LPN Scanned Package: [id number] insulin lispro (HumaLOG, ADMELOG) 100 unit/mL injection 0-10 Units [[id number]] Ordering Provider: Rosa Jade NP Status: Dispensed Ordered On: 10/07/231554 Start: 10/07/23 1800 Ordered Dose (Remaining/Total): 0-10 Units (--/--) Route: [...] Action Dose Route / Site Other Information 10/20/23 180 Given 2 Units subcutaneous Right Lower Abdomen Performed by: Alessandra Cervantes LPN Scanned Package: [id number] insulin lispro (HumaLOG, ADMELOG) 100 unit/mL injection 0-5 Units [[id number]] Ordering Provider: Rosa Jade NP Status: Dispensed Ordered On: 10/07/231554 Start: 10/07/23 2100 Ordered Dose (Remaining/Total): 0-5 Units (--/--) Route: [...] Action Dose Route / Site Other Information 10/19/232025 Given 2 Units subcutaneous Right Lower Abdomen Performed by: Sudarshan Cabreraign requested from: Court Cabrera RN Scanned Package: 3495-1246-87 ramelteon (ROZEREM) tablet 8 mg [[id number]] Ordering Provider: Sujatha Montes De Oca NP Status: Dispensed Ordered On: 10/08/232253 Start: 10/08/232253 Ordered Dose (Remaining/Total): 8 mg (--/--) Route: oral Frequency: Nightly PRN Ordered Rate/Order Duration: -- / -- Timestamps Action Dose Route Other Information 10/13/232252 Given 8 mg oral Performed by: Court Cabrera RN Scanned Package: 78909-166-69 haloperidol (HALDOL) injection 5 mg [[id number]] Ordering Provider: Sujatha Montes De Oca NP Status: Completed (Past End Date/Time) Ordered On: 10/08/232309 Starts/Ends: 10/08/232344 - 10/08/232312 Ordered Dose (Remaining/Total): 5 mg (0/1) Route: intravenous Frequency: Once Ordered Rate/Order Duration: -- / -- Admin Instructions: If administered IV push, administer over 5 min for adults Timestamps Action Dose Route Other Information 10/08/232312 Given 5 mg intravenous Performed by: Court Cabrera RN Scanned Package: 24234-523-51 OLANZapine (ZyPREXA) 5 mg in sterile water 1 mL (5 mg/mL) syringe [[id number]] Ordering Provider: Marci Mcgregor NP Status: Completed (Past End Date/Time) Ordered On: 10/10/23 003 Starts/Ends: 10/10/23114 - 10/10/231926 Ordered Dose (Remaining/Total): 5 mg (0/1) Route: intramuscular Frequency: Once Ordered Rate/Order Duration: -- / -- Admin Instructions: Reconstitute 10 mg vial with 2.1 mL SWFI. Resulting solution is ~5 mg/mL. Useimmediately (within 1 hour) following reconstitution. Timestamps Action Dose Route / Site Other Information 10/10/23 1927 Given 5 mg intramuscular Left Deltoid Performed by: Breanna Jones RN Scanned Package: 77184-510-19, 3976-8745-35 OLANZapine (ZyPREXA) 10 mg injection - ADS Override Pull [[id number]] Status: Completed (Past End Date/Time) Ordered On: 10/10/2333 Starts/Ends: 10/10/2333 - 10/10/23 0036 Ordered Dose (Remaining/Total): -- (0/1) Route: -- Frequency: -- Ordered Rate/Order Duration: -- / -- Admin Instructions: Created by cabinet override Note to pharmacy: Created by cabinet override Reconstitute 10 mg vial with 2.1 mL SWFI. Resultingsolution is ~5 mg/mL. Use immediately (within 1 hour) following reconstitution. Timestamps Action Dose Route / Site / Linked Line Other Information 10/10/23 003 Given 5 mg -- Performed by: Melania Preciado RN risperiDONE (RisperDAL) tablet 1 mg [[id number]] Ordering Provider: Deepti Sands MD Status: Dispensed Ordered On: 10/13/231199 Start: 10/13/23 2100 Ordered Dose (Remaining/Total): 1 mg (--/--) Route: oral Frequency: Nightly Ordered Rate/Order Duration: -- / -- Timestamps Action Dose Route Other Information 10/20/232152 Given 1 mg oral Performed by: Melania Preciado RN Scanned Package: 59142-506-20 OLANZapine (ZyPREXA) 2.5 mg in sterile water 0.5 mL (5 mg/mL) syringe [[id number]] Ordering Provider: Deepti Sands MD Status: Verified Ordered On: 10/13/23 1200 Start: 10/13/23 1159 Ordered Dose (Remaining/Total): 2.5 mg (--/--) Route: intramuscular Frequency: Every 12 hours PRN Ordered Rate/Order Duration: -- / -- Admin Instructions: If unable to take PO Reconstitute 10 mg vial with 2.1 mL SWFI. Resulting solution is ~5 mg/mL. Use immediately (within 1 hour) following reconstitution. (No admins scheduled or recorded for this medication) OLANZapine (ZyPREXA) tablet 2.5 mg [[id number]] Ordering Provider: Deepti Sands MD Status: Dispensed Ordered On: 10/13/23 1200 Start: 10/13/23 1200 Ordered Dose (Remaining/Total): 2.5 mg (--/--) Route: oral Frequency: 2 times daily PRN Ordered Rate/Order Duration: -- / -- (No admins scheduled or recorded for this medication) benztropine (COGENTIN) tablet 1.5 mg [[id number]] Ordering Provider: Bev Adames MD Status: Dispensed Ordered On: 10/13/23 1623 Start: 10/14/23 2100 Ordered Dose (Remaining/Total): 1.5 mg (--/--) Route: oral Frequency: Nightly Ordered Rate/Order Duration: -- / -- Timestamps Action Dose Route Other Information 10/20/232152 Given 1.5 mg oral Performed by: Melania Preciado RN Scanned Package: 84177-063-48, 65987-040-21 heparin 1,000 unit/mL injection 1.5-6.9 mL [[id number]] Ordering Provider: Jimbo Strauss MD Status: Verified (Past End Date/Time) Ordered On: 10/16/23942 Starts/Ends: 10/16/231014 - 10/17/23 1015 Ordered Dose (Remaining/Total): 1.5-6.9 mL (06/22) Route: intra-catheter Frequency: Once Ordered Rate/Order Duration: -- / -- Admin Instructions: Indwell volume of catheter lumens post treatment. Give volume based upon underwater hunter trapper's recommendation (usual range 1.2 - 3 mL) in each lumen. (No admins scheduled or recorded for this medication) heparin 1,000 unit/mL injection 1,500 Units [[id number]] Ordering Provider: Jimbo Strauss MD Status: Verified (Past End Date/Time) Ordered On: 10/16/23942 Starts/Ends: 10/16/231014 - 10/17/23 1015 Ordered Dose (Remaining/Total): 1,500 Units (06/22) Route: dialysis circuit Frequency: Once Ordered Rate/Order Duration: -- / -- Admin Instructions: Administered at start of dialysis treatment. (No admins scheduled or recorded for this medication) heparin 1,000 unit/mL injection 500 Units [[id number]] Ordering Provider: Jimbo Strauss MD Status: Verified (Past End Date/Time) Ordered On: 10/16/23942 Starts/Ends: 10/16/23 1015 - 10/16/23 1259 Ordered Dose (Remaining/Total): 500 Units (/) Route: dialysis circuit Frequency: Every 1 hour Ordered Rate/Order Duration: -- / -- Admin Instructions: Until treatment completed. Hold heparin last hour of treatment. (No admins scheduled or recorded for this medication) albumin 25 % bottle 25 g [[id number]] Ordering Provider: Jimbo Strauss MD Status: Verified (Past End Date/Time) Ordered On: 10/16/23942 Starts/Ends: 10/16/23942 - 10/16/232237 Ordered Dose (Remaining/Total): 25 g (3/3) Route: intravenous Frequency: As needed Ordered Rate/Order Duration: -- / -- Admin Instructions: To be administered only in dialysis. Not to exceed 25 gm. (Second priority) Question Answer Comment BP threshold for treatment:: SBP -- Systolic Blood Pressure less than (mmHg): 85 -- (No admins scheduled or recorded for this medication) lidocaine (PF) (XYLOCAINE) 10 mg/mL (1 %) preservative free injection [[id number]] Ordering Provider: Marcus Mcdonald MD Status: Completed (Past End Date/Time) Ordered On: 10/15/23 0912 Frequency: As needed Timestamps Action Dose Route / Site Other Information 10/15/23 0908 Given 10 mL Injection Other (Comment) Performed by: Marcus Mcdonald MD Documented by: Kita Spencer RN Comments: right chest for tunnel calcium acetate(phosphat bind) (PHOSLO) capsule 667 mg [[id number]] Ordering Provider: Jimbo Strauss MD Status: Dispensed Ordered On: 10/16/23 0500 Start: 10/16/23 0800 Ordered Dose (Remaining/Total): 667 mg (--/--) Route: oral Frequency: 3 times daily with meals Ordered Rate/Order Duration: -- / -- Admin Instructions: Take with food Timestamps Action Dose Route Other Information 10/20/231801 Given 667 mg oral Performed by: Alessandra Cervantes LPN Scanned Package: [id number] heparin 1,000 unit/mL injection 1.5-6.9 mL [[id number]] Ordering Provider: Jimbo Strauss MD Status: Verified (Past End Date/Time) Ordered On: 10/16/23942 Starts/Ends: 10/16/231014 - 10/17/23 1015 Ordered Dose (Remaining/Total): 1.5-6.9 mL (06/22) Route: intra-catheter Frequency: Once Ordered Rate/Order Duration: -- / -- Admin Instructions: Indwell volume of catheter lumens post treatment. Give volume based upon underwater hunter trapper's recommendation (usual range 1.2 - 3 mL) in each lumen. (No admins scheduled or recorded for this medication) heparin 1,000 unit/mL injection 1,500 Units [[id number]] Ordering Provider: Jimbo Strauss MD Status: Dispensed (Past End Date/Time) Ordered On: 10/16/23942 Starts/Ends: 10/16/231014 - 10/17/23 1015 Ordered Dose (Remaining/Total): 1,500 Units (06/22) Route: dialysis circuit Frequency: Once Ordered Rate/Order Duration: -- / -- Admin Instructions: Administered at start of dialysis treatment. (No admins scheduled or recorded for this medication) heparin 1,000 unit/mL injection 500 Units [[id number]] Ordering Provider: Jimbo Strauss MD Status: Verified (Past End Date/Time) Ordered On: 10/16/23942 Starts/Ends: 10/16/231014 - 10/16/23 1259 Ordered Dose (Remaining/Total): 500 Units (08/22) Route: dialysis circuit Frequency: Every 1 hour Ordered Rate/Order Duration: -- / -- Admin Instructions: To be given in HD. Until treatment completed. Hold heparin last hour of treatment. (No admins scheduled or recorded for this medication) albumin 25 % bottle 25 g [[id number]] Ordering Provider: Jimbo Strauss MD Status: Verified Ordered On: 10/16/23 0943 Start: 10/16/23942 Ordered Dose (Remaining/Total): 25 g (3/3) Route: intravenous Frequency: As needed Ordered Rate/Order Duration: -- / -- Admin Instructions: To be administered only in dialysis. Not to exceed 25 gm. (Second priority) Question Answer Comment BP threshold for treatment:: SBP -- Systolic Blood Pressure less than (mmHg): 85 -- (No admins scheduled or recorded for this medication) polyethylene glycol (MIRALAX) packet 17 g [[id number]] Ordering Provider: Gill Gamboa MD Status: Dispensed Ordered On: 10/16/23 1048 Start: 10/16/23 1130 Ordered Dose (Remaining/Total): 17 g (--/--) Route: oral Frequency: Daily Ordered Rate/Order Duration: -- / -- Timestamps Action Dose Route Other Information 10/20/23 0806 Given 17 g oral Performed by: Alessandra Cervantes LPN Scanned Package: [id number] metoprolol tartrate (LOPRESSOR) immediate release split tablet 6.25 mg [[id number]] Ordering Provider: Jimbo Strauss MD Status: Dispensed Ordered On: 10/17/23 0920 Start: 10/17/23 2100 Ordered Dose (Remaining/Total): 6.25 mg (--/--) Route: oral Frequency: 2 times daily Ordered Rate/Order Duration: -- / -- Timestamps Action Dose Route Other Information 10/20/23 2153 Given 6.25 mg oral Performed by: Melania Preciado, RN Scanned Package: [id number] , Dialysis Data Past 7 days Pre-Dialysis Data last 7 days Pre-Treatment Comments 10/18 09 pt. lying in bed quietly. no c/o pain at this time. fully alert and oriented and capableof expressing needs. dialysis catheter prepped for treatment. no s/s of infection noted to site 10/15 0835 pt arrived to hd suite alert, pre catheter care complete, pt ready for hd tx Intra-Dialysis Data last 7 days Blood Flow Rate (mL/min) 10/16 0817 300 mL/min Arterial Pressure (mmHg) 10/16 916 80 mmHg Venous Pressure (mmHg) 10/16 916 80 Transmembrane Pressure (mmHg) 10/16 916 40 mmHg Post-Dialysis Data last 7 days Rinseback Volume (mL) 10/16 1248 500 mL 10/15 1235 500 mL Dialyzer Clearance 10/16 1248 Lightly streaked 10/15 1235 Lightly streaked Duration of Treatment (min) 10/16 1248 210 minutes 10/15 1235 180 minutes Intake (mL) 10/18 1258 700 mL 10/16 1248 500 mL 10/15 1235 500 mL Output (mL) 10/18 1258 500 mL 10/16 1248 1500 mL 10/15 1235 1500 mL Patient Response to Treatment 10/16 1248 tolerated well 10/15 1235 well Post-Hemodialysis Comments 10/18 1258 dialysis terminated at 1253. uf goal not reached d/t low blood pressures. uf pump was turned off during treatment at 1000. 10/15 1235 tx ended, goal met, tx tolerated well, blood rinsed back per policy, lines cleaned, clamped, and capped, pt alert * Plan of Care - Jyoti Damon RN - 10/21/2023 8:06 AM CDT Update: Patient will discharge tomorrow to: [address] [place] [phone] : [facility] Room #. 410-2 Spoke with patient's DTR to inform of room number and date of discharge. Ambulance will PU at 1:30 pm, Spoke with Daughter regarding the patient's referral status and spoke to [facility]'s coordinator with [place]. Per daughter's wishes her mother will go to [facility] then to a dialysis center in [place] [facility] (Name of Center not known at this time). Her days will , , S, DTR will only have to take off work two days instead of three. Time will be 1pm. [facility] [place] is working on a dialysis chair for the patient while she is at that facility. The 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 for [facility] was given to Radha, so she could coordinate the patient's care. Waiting on Radha to call me back with the information. Patient may discharge today. 10/21/23 0754 Discharge Planning Support System Children Anticipated discharge level of care [facility] facility Does the patient need discharge transport arranged? Yes Has discharge transport been arranged? No Details of Transportation Pending approval Post Acute Care Plan Home Care Services N/A OP Services Yes Type of Service Dialysis ([facility]) Type of Dialysis Hemodialysis Hemodialysis Days of Week Thursday;;Thursday Hemodialysis Time 0100 Transportation to Hemodialysis Daughter Post Acute Care Facility Yes Referral Status Started Jyoti Damon [facility] [phone] * Plan of Care - Melania Preciado RN - 10/20/2023 7:59 PM CDT Problem: Discharge Planning Goal: Understanding discharge needs will improve Outcome: Progressing Problem: Fall Risk Goal: Ability to state ways to decrease the risk of falls will improve Outcome: Progressing Goal: Will remain free from falls Outcome: Progressing Goal: Will remain free from injury from falls Outcome: Progressing Problem: Disease Process Goal: Knowledge of disease or condition will improve Outcome: Progressing Goal: Seeking information regarding disease process or condition Outcome: Progressing Goal: Identification of resources available to assist in meeting health care needs will improve Outcome: Progressing Problem: Medication Regimen Goal: Knowledge of medication regimen will improve Outcome: Progressing Problem: Diagnostic Tests Goal: Knowledge of diagnostic tests will improve Outcome: Progressing Problem: Treatment Goal: Expressions of comfortable level of knowledge will increase Outcome: Progressing Goal: Knowledge of prescribed therapeutic regimen will improve Outcome: Progressing Goal: Ability to make informed decisions regarding treatment will improve Outcome: Progressing Goal: Identification of resources available to assist in meeting health care needs will improve Outcome: Progressing Problem: Lack of Knowledge Goal: Ability to describe self care measures that may prevent or decrease complications related to Type 1 Diabetes will improve Outcome: Progressing Problem: Health Nutrition Goal: Nutritional intake and knowledge related to Diabetes will improve Outcome: Progressing Goals: Clinical Goals for the Shift: pain control, stable VS/blood sugars, monitor labs, free from signs of infection, safety/comfort * Plan of Care - HernandezPeteAntoine Alessandra SiegelDANIELLE - 10/20/2023 6:44 PM CDT Problem: Discharge Planning Goal: Understanding discharge needs will improve Outcome: Progressing Problem: Fall Risk Goal: Ability to state ways to decrease the risk of falls will improve Outcome: Progressing Goal: Will remain free from falls Outcome: Progressing Goal: Will remain free from injury from falls Outcome: Progressing Problem: Disease Process Goal: Knowledge of disease or condition will improve Outcome: Progressing Goal: Seeking information regarding disease process or condition Outcome: Progressing Goal: Ability to make informed decisions regarding treatment will improve Outcome: Progressing Goal: Identification of resources available to assist in meeting health care needs will improve Outcome: Progressing Problem: Medication Regimen Goal: Knowledge of medication regimen will improve Outcome: Progressing Problem: Diagnostic Tests Goal: Knowledge of diagnostic tests will improve Outcome: Progressing Goal: Ability to verbalize follow-up procedures will improve Outcome: Progressing Problem: Treatment Goal: Expressions of comfortable level of knowledge will increase Outcome: Progressing Goal: Knowledge of prescribed therapeutic regimen will improve Outcome: Progressing Goal: Ability to make informed decisions regarding treatment will improve Outcome: Progressing Goal: Identification of resources available to assist in meeting health care needs will improve Outcome: Progressing Problem: Dietary Regimen Goal: Knowledge of prescribed regimen will improve Outcome: Progressing Goal: Ability to plan menus appropriate to prescribed diet will improve Outcome: Progressing Goal: Compliance with prescribed food intake will improve Outcome: Progressing Problem: Lack of [...] to Diabetes will improve Outcome: Progressing Problem: Lack of [...] functionality and self care Outcome: Progressing Problem: Cardiovascular Goal: Maintains optimal cardiac output and hemodynamic stability Outcome: Progressing Goal: Absence of cardiac dysrhythmias or at baseline Outcome: Progressing Problem: Skin/Tissue Integrity Goal: Skin integrity remains intact Outcome: Progressing Problem: Musculoskeletal Goal: Return mobility to safest level of function Outcome: Progressing Problem: Physical Regulation Description: Module [...] be avoided or minimized Outcome: Progressing Problem: Genitourinary Goal: Absence of urinary retention Outcome: Progressing Goals: Clinical Goals for the Shift: pain control, stable VS/blood sugars, monitor labs, free from signs of infection, safety/comfort Summary: total nurse care provided * Plan of Care - Jyoti Damon RN - 10/20/2023 1:10 PM CDT Waiting on her Daughter to decide which facility she would like her mother to go to. CM will continue to follow and assist with discharge planning as needed. Discharge disposition:03 10/20/23 1309 Discharge Planning Support System Children Anticipated discharge level of care [facility] facility Does the patient need discharge transport arranged? Yes Has discharge transport been arranged? No Post Acute Care Plan Type of Service Dialysis Hemodialysis Days of Week Thursday;Thursday;Thursday Hemodialysis Time 1500 Post Acute Care Facility Yes Referral Status Pending Jyoti Damno [facility] [phone] Update: called to find out which facility the DTR chose for her mother. No answer. The patient was accepted at three facilities. CM reviewed with DTR and emailed her a list of facilities. * Plan of Pee - Court Cabrera RN - 10/20/2023 5:52 AM CDT Goals: Clinical Goals for the Shift: pain control, stable VS/blood sugars, monitor labs, free from signs of infection, safety/comfort Problem: Discharge Planning Goal: Understanding discharge needs will improve Outcome: Ongoing Problem: Fall Risk Goal: Ability to state ways to decrease the risk of falls will improve Outcome: Ongoing Goal: Will remain free from falls Outcome: Ongoing Goal: Will remain free from injury from falls Outcome: Ongoing Problem: Disease Process Goal: Knowledge of disease or condition will improve Outcome: Ongoing Goal: Seeking information regarding disease process or condition Outcome: Ongoing Goal: Ability to make informed decisions regarding treatment will improve Outcome: Ongoing Goal: Identification of resources available to assist in meeting health care needs will improve Outcome: Ongoing Problem: Medication Regimen Goal: Knowledge of medication regimen will improve Outcome: Ongoing Problem: Diagnostic Tests Goal: Knowledge of diagnostic tests will improve Outcome: Ongoing Goal: Ability to verbalize follow-up procedures will improve Outcome: Ongoing Problem: Treatment Goal: Expressions of comfortable level of knowledge will increase Outcome: Ongoing Goal: Knowledge of prescribed therapeutic regimen will improve Outcome: Ongoing Goal: Ability to make informed decisions regarding treatment will improve Outcome: Ongoing Goal: Identification of resources available to assist in meeting health care needs will improve Outcome: Ongoing Problem: Dietary Regimen Goal: Knowledge of prescribed regimen will improve Outcome: Ongoing Goal: Ability to plan menus appropriate to prescribed diet will improve Outcome: Ongoing Goal: Compliance with prescribed food intake will improve Outcome: Ongoing Problem: Lack of [...] to Diabetes will improve Outcome: Ongoing Problem: Lack of [...] or improved neurological status Outcome: Ongoing Goal: Achieves maximal functionality and self care Outcome: Ongoing Problem: Cardiovascular Goal: Maintains optimal cardiac output and hemodynamic stability Outcome: Ongoing Goal: Absence of cardiac dysrhythmias or at baseline Outcome: Ongoing Problem: Skin/Tissue Integrity Goal: Skin integrity remains intact Outcome: Ongoing Problem: Musculoskeletal Goal: Return mobility to safest level of function Outcome: Ongoing Problem: Physical Regulation Description: Module scope: This [...] will be avoided or minimized Outcome: Ongoing * [facility] Note - Jyoti Damon RN - 10/19/2023 4:43 PM CDT Patient Information: Patient Header Patient Information Patient Name: SIXTO CHAKRABORTY Date of 1950 (72 years) Sex: Female Phone Numbers: Home: , Referral Summary Patient Information Patient Name: SIXTO CHAKRABORTY Date of 1950 (72 years) Sex: Female Phone Numbers: Home: Attending Provider: Gill Gamboa MD Allergies: No Known Allergies Isolation: None Infection: None Code Status: FULL Ht: 157.5 cm (5' 2.01 ) Wt: 61.6 kg (135 lb 12.8 oz) Admission Cmt: None Principal Problem: Acute on chronic diastolic congestive heart failure (CMS/HCC) ([facility]) [I50.33] Elopement Risk Date/Time Risk/Reason for Elopement User 10/17/23 1042 Limited capacity to understand consequences of leaving;Recent history (within the past 30 days) of eloping/ wandering FBT 10/08/23 1608 Limited capacity to understand consequences of leaving [facility] 10/06/23 1555 No risk JLG Intake/Output 10/16/23 0700 - 10/17/23 0659 10/17/23 0700 - 10/18/23 0659 10/18/23 07 - 10/19/23 0659 10/19/23 07 - 10/20/23 0659 Total Total 3502-7041 6112-2016 5380-4832 Total 0124-5212 6095-7300 0007-2093 Total Intake (ml) 1342 1000 -- -- -- -- 700 -- -- 700 Output (ml) 1500 1500 -- -- -- -- 500 -- -- 500 Net (ml) -158 -500 -- -- -- -- 200 -- -- 200 Patient Lines/Drains/Airways Status Active Airway / Central venous catheter / Drain / Epidural cathether / Intraosseous line / Peripherally inserted central catheter / Peripheral intravenous line / Arterial line Name Placement date Placement time Site Days Peripheral IV 10/12/23 22 G Left;Posterior Hand 10/12/23 1647 Hand 6 Active Wound Assessment Active Wound / Pressure injury / [place] / Negative Pressure Wound / Incision None Ayers Fall Risk Flowsheet Row Most Recent Value Prior Fall Event (Autopopulated from EMR) None found ............filed at 10/19/2023 0730 History of Falling 0 ............filed at 10/19/2023 0730 Secondary Diagnosis 15 ............filed at 10/19/2023 0730 Ambulatory Aids 0 ............filed at 10/19/2023 0730 Intravenous Therapy/Heparin/Saline Lock 20 ............filed at 10/19/2023 0730 Gait/Transferring 0 ............filed at 10/19/2023 0730 Mental Status 0 ............filed at 10/19/2023 0730 Ayers Fall Risk Score 35 ............filed at 10/19/2023 0730 Vital Signs 10/17 0700 10/18 0659 10/18 0700 10/18 1644 Most Recent Temp (??C) 36.3 - 37 36.4 - 36.9 36.9 (98.5) 10/18 152 Pulse 56 - 70 61 - 65 63 10/18 1525 Resp 16 - 18 18 - 19 19 10/18 1525 SpO2 (%) 95 - 97 97 - 99 99 10/18 152 BP 129/53 - 157/78 126/73 - 161/65 133/71 10/18 1525 MAP (mmHg) 69 - 104 91 91 10/18 152 Default Flowsheet Data (most recent) Endurance Tests No documentation. Default Flowsheet Data (last 48 hours) Oxygen Row Name 10/19/23 1525 10/19/23 0729 10/19/23 04:43:45 10/18/23 20:47:13 10/18/23 1500 Oxygen Therapy/Pulse Ox O2 Therapy -- -- None (Room air) None (Room air) None (Room air) SpO2 99 % 97 % 95 % 95 % 96 % Row Name 10/18/23 0700 10/18/23 0436 10/17/232024 Oxygen Therapy/Pulse Ox O2 Therapy None (Room air) -- -- SpO2 97 % 98 % 98 % Nursing Nutrition None Nursing Mobility Activity 10/18 1456 Resting in bed 10/18 1330 Resting in bed 10/18 0814 Resting in bed 10/18 0300 Sleeping 10/18 0100 Sleeping 10/17 2300 Sleeping 10/17 2100 Sleeping 10/17 1900 Resting in bed 10/17 1838 Resting in bed 10/17 1640 Resting in bed 10/17 1422 Resting in bed 10/17 1228 Resting in bed 10/17 1049 Resting in bed 10/17 0812 Resting in bed 10/17 0600 Resting in bed 10/17 0400 Resting in bed 10/17 0000 Resting in bed 10/16 2200 Dangle 10/16 2128 Chair 10/16 2000 Resting in bed 10/16 1838 Resting in bed 10/16 1700 Resting in bed 10/16 1626 Resting in bed 10/16 1500 Resting in bed 10/16 1413 Resting in bed 10/16 0836 Resting in bed 10/16 0700 Resting in bed 10/15 2126 Chair 10/15 1832 Chair 10/15 1659 Chair Patient Assistance 10/18 1456 Standby assist, set-up cues, supervision of patient - no hands on 10/18 1330 Standby assist, set-up cues, supervision of patient - no hands on 10/18 0814 Standby assist, set-up cues, supervision of patient - no hands on 10/17 1838 Standby assist, set-up cues, supervision of patient - no hands on 10/17 1640 Standby assist, set-up cues, supervision of patient - no hands on 10/17 1422 Standby assist, set-up cues, supervision of patient - no hands on 10/17 1228 Standby assist, set-up cues, supervision of patient - no hands on 10/17 1049 Standby assist, set-up cues, supervision of patient - no hands on 10/17 0812 Standby assist, set-up cues, supervision of patient - no hands on 10/17 0600 Standby assist, set-up cues, supervision of patient - no hands on 10/17 0400 Standby assist, set-up cues, supervision of patient - no hands on 10/17 0000 Standby assist, set-up cues, supervision of patient - no hands on 10/16 2200 Standby assist, set-up cues, supervision of patient - no hands on 10/168 Standby assist, set-up cues, supervision of patient - no hands on 10/16 2000 Standby assist, set-up cues, supervision of patient - no hands on 10/16 1838 Standby assist, set-up cues, supervision of patient - no hands on 10/16 1700 Standby assist, set-up cues, supervision of patient - no hands on 10/16 1626 Standby assist, set-up cues, supervision of patient - no hands on 10/16 1500 Standby assist, set-up cues, supervision of patient - no hands on 10/16 1413 Standby assist, set-up cues, supervision of patient - no hands on 10/16 0836 Standby assist, set-up cues, supervision of patient - no hands on 10/16 0700 Standby assist, set-up cues, supervision of patient - no hands on 10/15 2125 Standby assist, set-up cues, supervision of patient - no hands on 10/15 183 Standby assist, set-up cues, supervision of patient - no hands on 10/15 165 Standby assist, set-up cues, supervision of patient - no hands on Ambulation Response 10/15 183 Tolerated well 10/15 165 Tolerated well Repositioned 10/18 1456 Turn self;Supine 10/18 1330 Turn self;Supine;Semi-fowlers 10/18 0814 Turn self;Supine 10/18 0300 Turn self;Semi-fowlers;Pillow support 10/18 0100 Turn self;Left Side;Pillow support 10/17 2300 Turn self;Pillow support 10/17 2100 Turn self 10/17 1900 Turn self 10/17 1838 Supine;Turn self 10/17 1640 Supine;Turn self 10/17 1422 Supine;Turn self 10/17 1228 Supine;Turn self 10/17 1049 Supine;Turn self 10/17 0812 Supine;Turn self 10/17 0600 Supine;Turn self 10/17 0400 Supine;Turn self 10/17 0000 Supine;Turn self 10/16 2200 Supine;Turn self 10/16 2128 Supine 10/16 2000 Supine;Turn self 10/16 1838 Supine;Turn self 10/16 1700 Turn self 10/16 1626 Supine;Turn self 10/16 1500 Turn self 10/16 1413 Supine;Turn self 10/16 0836 Supine;Turn self 10/16 0700 Turn self 10/15 2126 Turn self Head of Bed Elevated 10/18 1456 HOB 30 10/18 1330 HOB 30 10/18 0814 HOB 30 10/18 0300 HOB < 20 10/18 0100 HOB < 20 10/17 2300 HOB < 20 10/17 1900 HOB 30 10/17 1838 HOB 30 10/17 1640 HOB 30 10/17 1422 HOB 30 10/17 1228 HOB 30 10/17 1049 HOB 30 10/17 0812 HOB 30 10/17 0600 HOB 30 10/17 0400 HOB 30 10/17 0000 HOB 30 10/16 2200 HOB 30 10/16 2128 HOB 30 10/16 2000 HOB 30 10/16 1838 HOB 30 10/16 1626 HOB 30 10/16 1413 HOB 30 10/16 0836 HOB 30 10/15 30 Heels/Feet 10/18 1456 Heels elevated off bed;Foot of bed elevated 10/18 1330 Heels elevated off bed;Foot of bed elevated 10/18 0814 Heels elevated off bed 10/18 0300 Heels elevated off bed 10/18 0100 Heels elevated off bed 10/17 1838 Other (Comment) (Comment: SELF) 10/17 1422 Other (Comment) (Comment: SELF) 10/16 2128 Other (Comment) (Comment: self) 10/16 1838 Other (Comment) (Comment: self) 10/16 1700 Other (Comment) (Comment: self) 10/16 162 Other (Comment) (Comment: SELF) 10/16 1500 Other (Comment) (Comment: self) 10/16 1413 Other (Comment) (Comment: sself) 10/16 0836 Other (Comment) (Comment: self) 10/15 2125 Other (Comment) (Comment: SELF) Range of Motion Interventions 10/18 0814 Active;All extremities 10/18 0730 Active;All extremities 10/18 0300 Active;All extremities 10/18 0100 Active;All extremities 10/17 2300 Active;All extremities 10/17 1838 Active;All extremities 10/17 1640 Active;All extremities 10/17 1422 Active;All extremities 10/17 1228 Active;All extremities 10/17 1049 Active;All extremities 10/17 1015 Active;All extremities 10/17 0812 Active;All extremities 10/17 0600 Active;All extremities 10/17 0400 Active;All extremities 10/17 0000 Active;All extremities 10/16 2200 Active;All extremities 10/16 2000 Active;All extremities 10/16 1838 Active;All extremities 10/16 1700 Active;All extremities 10/16 1626 Active;All extremities 10/16 1500 Active;All extremities 10/16 1413 Active;All extremities 10/16 0836 Active;All extremities 10/16 0753 Active;All extremities 10/16 0700 Active;All extremities 10/15 1832 Active;All extremities 10/15 1659 Active;All extremities All Meds/Most Recent Administrations furosemide (LASIX) 10 mg/mL injection 40 mg [[id number]] Ordering Provider: Isidro Hahn MD Status: Completed (Past End Date/Time) Ordered On: 10/07/23 1135 Starts/Ends: 10/07/23 1135 - 10/07/23 1146 Ordered Dose (Remaining/Total): 40 mg (0/1) Route: intravenous Frequency: Once Ordered Rate/Order Duration: -- / -- Admin Instructions: For IV push: administer doses < 160 mg at a rate of 20 -40 mg/min. Doses >/= 160 mg should be administered no faster than 4 mg/min. Room temperature only Line Med Link Info Comment Peripheral IV 10/07/23 20 G Left Antecubital 10/07/23 1146 by Augusta Spencer RN -- Timestamps Action Dose Route Other Information 10/07/23 114 Given 40 mg intravenous Performed by: Augusta Spencer RN Scanned Package: 1122-2908-89 enoxaparin (LOVENOX) syringe 30 mg [[id number]] Ordering Provider: Alejandro Guillaume MD Status: Dispensed Ordered On: 10/07/23 1331 Start: 10/07/23 2100 Ordered Dose (Remaining/Total): 30 mg (--/--) Route: subcutaneous Frequency: Daily (for enoxaparin) Ordered Rate/Order Duration: -- / -- Timestamps Action Dose Route / Site Other Information 10/18/232025 Given 30 mg subcutaneous Left Lower Abdomen Performed by: Ambar Barnes RN Scanned Package: 00393-615-39 amLODIPine (NORVASC) tablet 10 mg [[id number]] Ordering Provider: Trisha Montiel MD Status: Completed (Past End Date/Time) Ordered On: 10/07/23 1356 Starts/Ends: 10/07/23 1357 - 10/07/23 1358 Ordered Dose (Remaining/Total): 10 mg (0/1) Route: oral Frequency: Once Ordered Rate/Order Duration: -- / -- Timestamps Action Dose Route Other Information 10/07/23 1358 Given 10 mg oral Performed by: Codi Hicks RN Scanned Package: 90582-218-12 acetaminophen (TYLENOL) tablet 650 mg [[id number]] Ordering Provider: Roas Jade NP Status: Dispensed Ordered On: 10/07/231551 Start: 10/07/231551 Ordered Dose (Remaining/Total): 650 mg (--/--) Route: oral Frequency: Every 6 hours PRN Ordered Rate/Order Duration: -- / -- Timestamps Action Dose Route Other Information 10/18/23 1226 Given 650 mg oral Performed by: Alessandra Cervantes LPN Scanned Package: 37493-815-97, 79594-160-30 amLODIPine (NORVASC) tablet 10 mg [[id number]] Ordering Provider: Rosa Jade NP Status: Discontinued (Past End Date/Time) Ordered On: 10/07/231551 Starts/Ends: 10/07/232099 - 10/07/232017 Ordered Dose (Remaining/Total): 10 mg (--/--) Route: oral Frequency: Nightly Ordered Rate/Order Duration: -- / -- (No admins scheduled or recorded for this medication) atorvastatin (LIPITOR) tablet 20 mg [[id number]] Ordering Provider: Rosa Jade NP Status: Dispensed Ordered On: 10/07/231551 Start: 10/07/232099 Ordered Dose (Remaining/Total): 20 mg (--/--) Route: oral Frequency: Nightly Ordered Rate/Order Duration: -- / -- Timestamps Action Dose Route Other Information 10/18/232026 Given 20 mg oral Performed by: Ambar Barnes RN Scanned Package: 17768-363-41 benztropine (COGENTIN) tablet 1.5 mg [[id number]] Ordering Provider: Rosa Jade NP Status: Discontinued (Past End Date/Time) Ordered On: 10/07/231551 Starts/Ends: 10/07/232099 - 10/13/23 162 Ordered Dose (Remaining/Total): 1.5 mg (--/--) Route: oral Frequency: 2 times daily Ordered Rate/Order Duration: -- / -- Timestamps Action Dose Route Other Information 10/13/23 09 Given 1.5 mg oral Performed by: Homer Pavon RN Scanned Package: 55389-738-88, 70760-132-79 famotidine (PEPCID) tablet 10 mg [[id number]] Ordering Provider: Rosa Jade NP Status: Dispensed Ordered On: 10/07/231551 Start: 10/07/231552 Ordered Dose (Remaining/Total): 10 mg (--/--) Route: oral Frequency: Daily Ordered Rate/Order Duration: -- / -- Timestamps Action Dose Route Other Information 10/19/23824 Given 10 mg oral Performed by: Gregory Lynch RN Scanned Package: 52485-868-61 ferrous sulfate delayed release tablet 65 mg of elemental iron [[id number]] Ordering Provider: Rosa Jade NP Status: Dispensed Ordered On: 10/07/231551 Start: 10/07/232099 Ordered Dose (Remaining/Total): 65 mg of elemental iron (--/--) Route: oral Frequency: 2 times daily Ordered Rate/Order Duration: -- / -- Admin Instructions: 325 MG OF FERROUS SULFATE = 65 MG OF ELEMENTAL IRON Timestamps Action Dose Route Other Information 10/19/23824 Given 65 mg of elemental iron oral Performed by: Gregory Lynch RN Scanned Package: [id number] fluticasone propionate (FLONASE) 50 mcg/actuation nasal spray 2 spray [[id number]] Ordering Provider: Rosa Jade NP Status: Dispensed Ordered On: 10/07/231551 Start: 10/07/231552 Ordered Dose (Remaining/Total): 2 spray (--/--) Route: each nostril Frequency: Daily Ordered Rate/Order Duration: -- / -- Timestamps Action Dose Route Other Information 10/19/23825 Given 2 spray each nostril Performed by: Gregory Lynch RN Scanned Package: [address]-3 risperiDONE (RisperDAL) tablet 2 mg [[id number]] Ordering Provider: Rosa Jade NP Status: Discontinued (Past End Date/Time) Ordered On: 10/07/231551 Starts/Ends: 10/07/232099 - 10/13/23 1200 Ordered Dose (Remaining/Total): 2 mg (--/--) Route: oral Frequency: Nightly Ordered Rate/Order Duration: -- / -- Timestamps Action Dose Route Other Information 10/12/23 211 Given 2 mg oral Performed by: Paz Palencia Scanned Package: 88072-608-44 furosemide (LASIX) 10 mg/mL injection 40 mg [[id number]] Ordering Provider: Rosa Jade NP Status: Discontinued (Past End Date/Time) Ordered On: 10/07/231554 Starts/Ends: 10/07/23 1600 - 10/16/23 0500 Ordered Dose (Remaining/Total): 40 mg (--/--) Route: intravenous Frequency: 2 times daily (for diuretics) Ordered Rate/Order Duration: -- / -- Admin Instructions: For IV push: administer doses < 160 mg at a rate of 20 -40 mg/min. Doses >/= 160 mg should be administered no faster than 4 mg/min. Room temperature only Line Med Link Info Comment Peripheral IV 10/07/23 20 G Left Antecubital 10/07/23 1715 by Nadege Sabillon RN -- Timestamps Action Dose Route Other Information 10/09/23 180 Given 40 mg intravenous Performed by: Deborah Celeste RN Scanned Package: 7128-2406-64 ondansetron (ZOFRAN) injection 4 mg [[id number]] Ordering Provider: Rosa Jade NP Status: Verified Ordered On: 10/07/231554 Start: 10/07/231552 Ordered Dose (Remaining/Total): 4 mg (--/--) Route: intravenous Frequency: Every 6 hours PRN Ordered Rate/Order Duration: -- / 2 Minutes (No admins scheduled or recorded for this medication) dextrose oral liquid liquid 15 g [[id number]] Ordering Provider: Rosa Jade NP Status: Verified Ordered On: 10/07/231554 Start: 10/07/231553 Ordered Dose (Remaining/Total): 15 g (--/--) Route: [...] medication) dextrose (D10W) 10% bolus 250 mL [[id number]] Ordering Provider: Rosa Jade NP Status: Verified Ordered On: 10/07/231554 Start: 10/07/231553 Ordered Dose (Remaining/Total): 250 mL (--/--) Route: intravenous Frequency: Every 15 min PRN Ordered Rate/Order Duration: 1,000 mL/hr / 15 Minutes Admin Instructions: After treatment for hypoglycemia, recheck BG followed by treatment every 15 minutes until the BG is greater than 100 mg/dL. Then check BG 1 hour post treatment. If BG is less [id number] mg/dL, repeat Q15 minute BG checks and treatment. Call MD for each episode of hypoglycemia. (No admins scheduled or recorded for this medication) glucagon injection 1 mg [[id number]] Ordering Provider: Rosa Jade NP Status: Verified Ordered On: 10/07/231554 Start: 10/07/231553 Ordered Dose (Remaining/Total): 1 mg (--/--) Route: [...] (LANTUS, SEMGLEE) 100 unit/mL injection 15 Units [[id number]] Ordering Provider: Rosa Jade NP Status: Dispensed Ordered On: 10/07/231554 Start: 10/07/232099 Ordered Dose (Remaining/Total): 0.25 Units/kg (--/--) Route: subcutaneous Frequency: Nightly Ordered Rate/Order Duration: -- / -- Admin Instructions: Do not hold if NPO. Do not mix with other insulins Timestamps Action Dose Route / Site Other Information 10/18/232026 Given 15 Units subcutaneous Left Upper Abdomen Performed by: Ambar Barnes, ALIREZA Scanned Package: 97805-801-50 insulin lispro (HumaLOG, ADMELOG) 100 unit/mL injection 5 Units [[id number]] Ordering Provider: Rosa Jade NP Status: Dispensed Ordered On: 10/07/231554 Start: 10/07/23 1800 Ordered Dose (Remaining/Total): 0.083 Units/kg (--/--) Route: [...] Action Dose Route / Site Other Information 10/18/231750 Given 5 Units subcutaneous Left Lower Abdomen Performed by: Alessandra Cervantes LPN Scanned Package: 9127-0872-37 insulin lispro (HumaLOG, ADMELOG) 100 unit/mL injection 0-10 Units [[id number]] Ordering Provider: Rosa Jade NP Status: Dispensed Ordered On: 10/07/231554 Start: 10/07/23 1800 Ordered Dose (Remaining/Total): 0-10 Units (--/--) Route: [...] Action Dose Route / Site Other Information 10/16/23 1736 Given 1 Units subcutaneous Left Lower Abdomen Performed by: Jovita Mcnulty RN Scanned Package: 0959-2921-56 insulin lispro (HumaLOG, ADMELOG) 100 unit/mL injection 0-5 Units [[id number]] Ordering Provider: Rosa Jade NP Status: Dispensed Ordered On: 10/07/231554 Start: 10/07/232099 Ordered Dose (Remaining/Total): 0-5 Units (--/--) Route: [...] Action Dose Route / Site Other Information 10/16/23 2128 Given 1 Units subcutaneous Left Lower Abdomen Performed by: Lucinda Bearden RN Scanned Package: 2614-9391-89 amLODIPine (NORVASC) tablet 10 mg [[id number]] Ordering Provider: Gemma Jolly MD Status: Discontinued (Past End Date/Time) Ordered On: 10/07/232017 Starts/Ends: 10/08/232099 - 10/08/231604 Ordered Dose (Remaining/Total): 10 mg (--/--) Route: oral Frequency: Nightly Ordered Rate/Order Duration: -- / -- (No admins scheduled or recorded for this medication) metoprolol tartrate (LOPRESSOR) immediate release tablet 25 mg [[id number]] Ordering Provider: eBv Adames MD Status: Discontinued (Past End Date/Time) Ordered On: 10/08/23 1605 Starts/Ends: 10/08/232099 - 10/17/23 0920 Ordered Dose (Remaining/Total): 25 mg (--/--) Route: oral Frequency: 2 times daily Ordered Rate/Order Duration: -- / -- Timestamps Action Dose Route Other Information 10/17/23 0824 Given 25 mg oral Performed by: Nimo Pérez RN Scanned Package: 25266-557-34 ramelteon (ROZEREM) tablet 8 mg [[id number]] Ordering Provider: Sujatha Montes De Oca NP Status: Dispensed Ordered On: 10/08/232253 Start: 10/08/232253 Ordered Dose (Remaining/Total): 8 mg (--/--) Route: oral Frequency: Nightly PRN Ordered Rate/Order Duration: -- / -- Timestamps Action Dose Route Other Information 10/13/232252 Given 8 mg oral Performed by: Court Cabrera RN Scanned Package: 46748-655-73 haloperidol (HALDOL) injection 5 mg [[id number]] Ordering Provider: Sujatha Montes De Oca NP Status: Completed (Past End Date/Time) Ordered On: 10/08/232309 Starts/Ends: 10/08/232344 - 10/08/232312 Ordered Dose (Remaining/Total): 5 mg (0/1) Route: intravenous Frequency: Once Ordered Rate/Order Duration: -- / -- Admin Instructions: If administered IV push, administer over 5 min for adults Timestamps Action Dose Route Other Information 10/08/232312 Given 5 mg intravenous Performed by: Court Cabrera RN Scanned Package: 74974-376-25 haloperidol (HALDOL) injection 5 mg [[id number]] Ordering Provider: Marci Mcgregor NP Status: Discontinued (Past End Date/Time) Ordered On: 10/10/23 0029 Starts/Ends: 10/10/23 0100 - 10/10/23 0030 Ordered Dose (Remaining/Total): 5 mg (1/1) Route: intramuscular Frequency: Once Ordered Rate/Order Duration: -- / -- Admin Instructions: If administered IV push, administer over 5 min for adults (No admins scheduled or recorded for this medication) OLANZapine (ZyPREXA) 5 mg in sterile water 1 mL (5 mg/mL) syringe [[id number]] Ordering Provider: Marci Mcgregor NP Status: Completed (Past End Date/Time) Ordered On: 10/10/23 0030 Starts/Ends: 10/10/23 011 - 10/10/231926 Ordered Dose (Remaining/Total): 5 mg (0/1) Route: intramuscular Frequency: Once Ordered Rate/Order Duration: -- / -- Admin Instructions: Reconstitute 10 mg vial with 2.1 mL SWFI. Resulting solution is ~5 mg/mL. Useimmediately (within 1 hour) following reconstitution. Timestamps Action Dose Route / Site Other Information 10/10/231926 Given 5 mg intramuscular Left Deltoid Performed by: Breanna Jones RN Scanned Package: 71963-491-22, 5677-2628-11 OLANZapine (ZyPREXA) 10 mg injection - ADS Override Pull [[id number]] Status: Completed (Past End Date/Time) Ordered On: 10/10/2333 Starts/Ends: 10/10/2333 - 10/10/2335 Ordered Dose (Remaining/Total): -- (0/1) Route: -- Frequency: -- Ordered Rate/Order Duration: -- / -- Admin Instructions: Created by cabinet override Note to pharmacy: Created by cabinet override Reconstitute 10 mg vial with 2.1 mL SWFI. Resultingsolution is ~5 mg/mL. Use immediately (within 1 hour) following reconstitution. Timestamps Action Dose Route / Site / Linked Line Other Information 10/10/23 003 Given 5 mg -- Performed by: Melania Preciado RN amLODIPine (NORVASC) tablet 5 mg [[id number]] Ordering Provider: Wally Plummer MD Status: Discontinued (Past End Date/Time) Ordered On: 10/10/23 1056 Starts/Ends: 10/10/23 1130 - 10/11/23 0836 Ordered Dose (Remaining/Total): 5 mg (--/--) Route: oral Frequency: Daily Ordered Rate/Order Duration: -- / -- Timestamps Action Dose Route Other Information 10/10/23 1312 Given 5 mg oral Performed by: Alesasndra Cervantes LPN Scanned Package: 06858-190-92 amLODIPine (NORVASC) tablet 10 mg [[id number]] Ordering Provider: Wally Plummer MD Status: Discontinued (Past End Date/Time) Ordered On: 10/11/23 0836 Starts/Ends: 10/11/23 0915 - 10/16/23 0501 Ordered Dose (Remaining/Total): 10 mg (--/--) Route: oral Frequency: Daily Ordered Rate/Order Duration: -- / -- Timestamps Action Dose Route Other Information 10/15/23 1259 Given 10 mg oral Performed by: Latosha Mendez RN Scanned Package: 79516-527-40 risperiDONE (RisperDAL) tablet 1 mg [[id number]] Ordering Provider: Deepti Sands MD Status: Dispensed Ordered On: 10/13/231199 Start: 10/13/23 2100 Ordered Dose (Remaining/Total): 1 mg (--/--) Route: oral Frequency: Nightly Ordered Rate/Order Duration: -- / -- Timestamps Action Dose Route Other Information 10/18/232026 Given 1 mg oral Performed by: Ambar Barnes, RN Scanned Package: [id number] OLANZapine (ZyPREXA) 2.5 mg in sterile water 0.5 mL (5 mg/mL) syringe [[id number]] Ordering Provider: Deepti Sands MD Status: Verified Ordered On: 10/13/231199 Start: 10/13/23 1159 Ordered Dose (Remaining/Total): 2.5 mg (--/--) Route: intramuscular Frequency: Every 12 hours PRN Ordered Rate/Order Duration: -- / -- Admin Instructions: Reconstitute 10 mg vial with 2.1 mL SWFI. Resulting solution is ~5 mg/mL. Useimmediately (within 1 hour) following reconstitution. (No admins scheduled or recorded for this medication) OLANZapine (ZyPREXA) tablet 2.5 mg [[id number]] Ordering Provider: Deepti Sands MD Status: Dispensed Ordered On: 10/13/23 1200 Start: 10/13/23 1200 Ordered Dose (Remaining/Total): 2.5 mg (--/--) Route: oral Frequency: 2 times daily PRN Ordered Rate/Order Duration: -- / -- (No admins scheduled or recorded for this medication) benztropine (COGENTIN) tablet 1.5 mg [[id number]] Ordering Provider: Bev Adames MD Status: Dispensed Ordered On: 10/13/23 1623 Start: 10/14/23 2100 Ordered Dose (Remaining/Total): 1.5 mg (--/--) Route: oral Frequency: Nightly Ordered Rate/Order Duration: -- / -- Timestamps Action Dose Route Other Information 10/18/232026 Given 1.5 mg oral Performed by: Ambar Barnes RN Scanned Package: 75987-769-09, 19093-439-39 heparin 1,000 unit/mL injection 1.5-6.9 mL [[id number]] Ordering Provider: Jimbo Strauss MD Status: Verified (Past End Date/Time) Ordered On: 10/16/23942 Starts/Ends: 10/16/231014 - 10/17/23 1015 Ordered Dose (Remaining/Total): 1.5-6.9 mL (06/22) Route: intra-catheter Frequency: Once Ordered Rate/Order Duration: -- / -- Admin Instructions: [place] volume of catheter lumens post treatment. Give volume based upon underwater hunter trapper's recommendation (usual range 1.2 - 3 mL) in each lumen. (No admins scheduled or recorded for this medication) heparin 1,000 unit/mL injection 1,500 Units [[id number]] Ordering Provider: Jimbo Strauss MD Status: Verified (Past End Date/Time) Ordered On: 10/16/23942 Starts/Ends: 10/16/231014 - 10/17/23 1015 Ordered Dose (Remaining/Total): 1,500 Units (06/22) Route: dialysis circuit Frequency: Once Ordered Rate/Order Duration: -- / -- Admin Instructions: Administered at start of dialysis treatment. (No admins scheduled or recorded for this medication) heparin 1,000 unit/mL injection 500 Units [[id number]] Ordering Provider: Jimbo Strauss MD Status: Verified (Past End Date/Time) Ordered On: 10/16/23942 Starts/Ends: 10/16/23 1015 - 10/16/23 1259 Ordered Dose (Remaining/Total): 500 Units (3/3) Route: dialysis circuit Frequency: Every 1 hour Ordered Rate/Order Duration: -- / -- Admin Instructions: Until treatment completed. Hold heparin last hour of treatment. (No admins scheduled or recorded for this medication) albumin 25 % bottle 25 g [[id number]] Ordering Provider: Jimbo Strauss MD Status: Verified (Past End Date/Time) Ordered On: 10/16/23942 Starts/Ends: 10/16/23942 - 10/16/238 Ordered Dose (Remaining/Total): 25 g (3/3) Route: intravenous Frequency: As needed Ordered Rate/Order Duration: -- / -- Admin Instructions: To be administered only in dialysis. Not to exceed 25 gm. (Second priority) Question Answer Comment BP threshold for treatment:: SBP -- Systolic Blood Pressure less than (mmHg): 85 -- (No admins scheduled or recorded for this medication) lidocaine (PF) (XYLOCAINE) 10 mg/mL (1 %) preservative free injection [[id number]] Ordering Provider: Marcus Mcdonald MD Status: Completed (Past End Date/Time) Ordered On: 10/15/23 0912 Frequency: As needed Timestamps Action Dose Route / Site Other Information 10/15/23 0908 Given 10 mL Injection Other (Comment) Performed by: Marcus Mcdonald MD Documented by: Kita Spencer RN Comments: right chest for tunnel calcium acetate(phosphat bind) (PHOSLO) capsule 1,334 mg [[id number]] Ordering Provider: Jimbo Strauss MD Status: Discontinued (Past End Date/Time) Ordered On: 10/15/23 1312 Starts/Ends: 10/15/23 1330 - 10/16/23 0501 Ordered Dose (Remaining/Total): 1,334 mg (--/--) Route: oral Frequency: 3 times daily with meals Ordered Rate/Order Duration: -- / -- Admin Instructions: Take with food Timestamps Action Dose Route Other Information 10/15/23 1845 Given 1,334 mg oral Performed by: Latosha Mendez RN Scanned Package: 29224-125-98, 08274-477-64 calcium acetate(phosphat bind) (PHOSLO) capsule 667 mg [[id number]] Ordering Provider: Jimbo Strauss MD Status: Dispensed Ordered On: 10/16/23 0500 Start: 10/16/23 0800 Ordered Dose (Remaining/Total): 667 mg (--/--) Route: oral Frequency: 3 times daily with meals Ordered Rate/Order Duration: -- / -- Admin Instructions: Take with food Timestamps Action Dose Route Other Information 10/19/23 0825 Given 667 mg oral Performed by: Gregory Lynch RN Scanned Package: [id number] amLODIPine (NORVASC) tablet 5 mg [[id number]] Ordering Provider: Jimbo Strauss MD Status: Discontinued (Past End Date/Time) Ordered On: 10/16/23 0501 Starts/Ends: 10/16/23 0900 - 10/17/23 0920 Ordered Dose (Remaining/Total): 5 mg (--/--) Route: oral Frequency: Daily Ordered Rate/Order Duration: -- / -- Timestamps Action Dose Route Other Information 10/17/23 0824 Given 5 mg oral Performed by: Nimo Pérez RN Scanned Package: [id number] heparin 1,000 unit/mL injection 1.5-6.9 mL [[id number]] Ordering Provider: Jimbo Strauss MD Status: Verified (Past End Date/Time) Ordered On: 10/16/23 0943 Starts/Ends: 10/16/23 1015 - 10/17/23 1015 Ordered Dose (Remaining/Total): 1.5-6.9 mL (06/22) Route: intra-catheter Frequency: Once Ordered Rate/Order Duration: -- / -- Admin Instructions: Indwell volume of catheter lumens post treatment. Give volume based upon underwater hunter trapper's recommendation (usual range 1.2 - 3 mL) in each lumen. (No admins scheduled or recorded for this medication) heparin 1,000 unit/mL injection 1,500 Units [[id number]] Ordering Provider: Jimbo Strauss MD Status: Dispensed (Past End Date/Time) Ordered On: 10/16/23942 Starts/Ends: 10/16/23 1015 - 10/17/23 1015 Ordered Dose (Remaining/Total): 1,500 Units (06/22) Route: dialysis circuit Frequency: Once Ordered Rate/Order Duration: -- / -- Admin Instructions: Administered at start of dialysis treatment. (No admins scheduled or recorded for this medication) heparin 1,000 unit/mL injection 500 Units [[id number]] Ordering Provider: Jimbo Strauss MD Status: Verified (Past End Date/Time) Ordered On: 10/16/23942 Starts/Ends: 10/16/23 1015 - 10/16/23 1259 Ordered Dose (Remaining/Total): 500 Units (08/22) Route: dialysis circuit Frequency: Every 1 hour Ordered Rate/Order Duration: -- / -- Admin Instructions: To be given in HD. Until treatment completed. Hold heparin last hour of treatment. (No admins scheduled or recorded for this medication) albumin 25 % bottle 25 g [[id number]] Ordering Provider: Jimbo Strauss MD Status: Verified Ordered On: 10/16/23942 Start: 10/16/23942 Ordered Dose (Remaining/Total): 25 g (3) Route: intravenous Frequency: As needed Ordered Rate/Order Duration: -- / -- Admin Instructions: To be administered only in dialysis. Not to exceed 25 gm. (Second priority) Question Answer Comment BP threshold for treatment:: SBP -- Systolic Blood Pressure less than (mmHg): 85 -- (No admins scheduled or recorded for this medication) polyethylene glycol (MIRALAX) packet 17 g [[id number]] Ordering Provider: Gill Gamboa MD Status: Dispensed Ordered On: 10/16/23 1048 Start: 10/16/23 1130 Ordered Dose (Remaining/Total): 17 g (--/--) Route: oral Frequency: Daily Ordered Rate/Order Duration: -- / -- Timestamps Action Dose Route Other Information 10/19/23 0825 Given 17 g oral Performed by: Gregory Lynch, ALIREZA Scanned Package: [id number] metoprolol tartrate (LOPRESSOR) immediate release split tablet 6.25 mg [[id number]] Ordering Provider: Jimbo Strauss MD Status: Dispensed Ordered On: 10/17/23919 Start: 10/17/232099 Ordered Dose (Remaining/Total): 6.25 mg (--/--) Route: oral Frequency: 2 times daily Ordered Rate/Order Duration: -- / -- Timestamps Action Dose Route Other Information 10/19/23 0825 Given 6.25 mg oral Performed by: Gregory Lynch RN Scanned Package: [id number] OT ASSESSMENT FLOWSHEET LAST DOCUMENTED (most recent) OT Evaluation - 10/19/23 07 Pain Assessment Pain Assessment No/denies pain Pain Score 0 - No pain Patient's Stated Pain Goal No pain Cognition Orientation Oriented to person;Oriented to place;Oriented to time OT TREATMENT FLOWSHEET LAST DOCUMENTED (most recent) OT Treatment - 10/19/23 07 Pain Assessment Pain Assessment No/denies pain Pain Score 0 - No pain Patient's Stated Pain Goal No pain Cognition Orientation Oriented to person;Oriented to place;Oriented to time OT Notes Notes from 10/17/23 through 10/19/23 No notes of this type exist for this encounter. OT ASSESSMENT FLOWSHEET LAST DOCUMENTED (most recent) PT Evaluation - 10/19/23 07 Pain Assessment Pain Assessment No/denies pain Pain Score 0 - No pain Patient's Stated Pain Goal No pain Cognition Orientation Oriented to person;Oriented to place;Oriented to time PT TREATMENT (most recent) PT Treatment - 10/19/23 07 Pain Assessment Pain Assessment No/denies pain Pain Score 0 - No pain Patient's Stated Pain Goal No pain Cognition Orientation Oriented to person;Oriented to place;Oriented to time PT Notes Notes from 10/17/23 through 10/19/23 No notes of this type exist for this encounter. TIMBER SIZER OPERATOR ASSESSMENT (most recent) TIMBER SIZER OPERATOR Evaluation - 10/19/23 07 Cognition Orientation Oriented to person;Oriented to place;Oriented to time Pain Assessment Pain Assessment No/denies pain Pain Score 0 - No pain Patient's Stated Pain Goal No pain TIMBER SIZER OPERATOR SWALLOW STUDY (most recent) Clinical Swallow Study No documentation. TIMBER SIZER OPERATOR TREATMENT (most recent) TIMBER SIZER OPERATOR Treatment - 10/19/23 07 Pain Assessment Pain Assessment No/denies pain Pain Score 0 - No pain Patient's Stated Pain Goal No pain TIMBER SIZER OPERATOR Notes Notes from 10/17/23 through 10/19/23 No notes of this type exist for this encounter. Dialysis Treatment Flowsheet Row Most Recent Value Treatment Start Patient Status Departed filed at 10/16/2023 1235 Verification of Patient's Name/ Patient stated filed at 10/16/2023 09 Consent Obtained Yes filed at 10/16/2023 09 Timeout Performed Yes filed at 10/16/2023 0935 HBsAg Result Negative filed at 10/16/2023 09 Incapacitated Nurse Education Completed? ([facility] Use Only) N/A filed at 10/16/2023 09 Treatment Status Completed filed at 10/17/2023 1248 Alarms Test Passed? Yes filed at 10/16/2023 09 Air Detector On? Yes filed at 10/16/2023 09 Machine Parameters Pre-Treatment Comments pt. lying in bed quietly. no c/o pain at this time. fully alert and orientedand capable of expressing needs. dialysis catheter prepped for treatment. no s/s of infection notedto site filed at 10/19/2023 0910 During Hemodialysis Assessment Blood Flow Rate (mL/min) 300 mL/min filed at 10/17/2023 0917 Dialysate Flow Rate (mL/min) 600 mL/min filed at 10/17/2023 0917 Arterial Pressure (mmHg) 80 mmHg filed at 10/17/2023 0917 Venous Pressure (mmHg) 80 filed at 10/17/2023 0917 Transmembrane Pressure (mmHg) 40 mmHg filed at 10/17/2023 0917 Transducer Checked? Yes filed at 10/17/2023 0917 Access Checked/Connections Tight? Yes filed at 10/17/2023 0917 All Connections Secured? Yes filed at 10/17/2023 0917 Saline Line Double Clamped? Yes filed at 10/17/2023 0917 Venous Parameters Set? Yes filed at 10/17/2023 0917 Arterial Parameters Set? Yes filed at 10/17/2023 0917 Air Foam Detector Engaged? Yes filed at 10/17/2023 0917 Treatment Status Completed filed at 10/17/2023 1248 Hemodialysis Complications/Interventions Post-Hemodialysis Assessment Rinseback Volume (mL) 500 mL filed at 10/17/2023 1248 Dialyzer Clearance Lightly streaked filed at 10/17/2023 1248 Duration of Treatment (min) 210 minutes filed at 10/17/2023 1248 Treatment Status Completed filed at 10/17/2023 1248 Patient Status Departed filed at 10/16/2023 1235 Patient Response to Treatment tolerated well filed at 10/17/2023 1248 Net UF 200 mL filed at 10/19/2023 1258 Post-Hemodialysis Comments dialysis terminated at 1253. uf goal not reached d/t low blood pressures. uf pump was turned off during treatment at 1000. filed at 10/19/2023 1258 Post-Hemodialysis Handoff , Dialysis Data Last Documented Dialysis Treatment Flowsheet Row Most Recent Value Treatment Start Patient Status Departed filed at 10/16/2023 1235 Verification of Patient's Name/ Patient stated filed at 10/16/2023 0935 Consent Obtained Yes filed at 10/16/2023 0935 Timeout Performed Yes filed at 10/16/2023 0935 HBsAg Result Negative filed at 10/16/2023 0935 Incapacitated Nurse Education Completed? ([facility] Use Only) N/A filed at 10/16/2023 0935 Treatment Status Completed filed at 10/17/2023 1248 Alarms Test Passed? Yes filed at 10/16/2023 0935 Air Detector On? Yes filed at 10/16/2023 0935 Machine Parameters Pre-Treatment Comments pt. lying in bed quietly. no c/o pain at this time. fully alert and orientedand capable of expressing needs. dialysis catheter prepped for treatment. no s/s of infection notedto site filed at 10/19/2023 0910 During Hemodialysis Assessment Blood Flow Rate (mL/min) 300 mL/min filed at 10/17/2023 0917 Dialysate Flow Rate (mL/min) 600 mL/min filed at 10/17/2023 0917 Arterial Pressure (mmHg) 80 mmHg filed at 10/17/2023 0917 Venous Pressure (mmHg) 80 filed at 10/17/2023 0917 Transmembrane Pressure (mmHg) 40 mmHg filed at 10/17/2023 0917 Transducer Checked? Yes filed at 10/17/2023 0917 Access Checked/Connections Tight? Yes filed at 10/17/2023 0917 All Connections Secured? Yes filed at 10/17/2023 0917 Saline Line Double Clamped? Yes filed at 10/17/2023 0917 Venous Parameters Set? Yes filed at 10/17/2023 0917 Arterial Parameters Set? Yes filed at 10/17/2023 0917 Air Foam Detector Engaged? Yes filed at 10/17/2023 0917 Treatment Status Completed filed at 10/17/2023 1248 Hemodialysis Complications/Interventions Post-Hemodialysis Assessment Rinseback Volume (mL) 500 mL filed at 10/17/2023 1248 Dialyzer Clearance Lightly streaked filed at 10/17/2023 1248 Duration of Treatment (min) 210 minutes filed at 10/17/2023 1248 Treatment Status Completed filed at 10/17/2023 1248 Patient Status Departed filed at 10/16/2023 1235 Patient Response to Treatment tolerated well filed at 10/17/2023 1248 Net UF 200 mL filed at 10/19/2023 1258 Post-Hemodialysis Comments dialysis terminated at 1253. uf goal not reached d/t low blood pressures. uf pump was turned off during treatment at 1000. filed at 10/19/2023 1258 Post-Hemodialysis Handoff * Plan of Care - Jyoti Damon RN - 10/19/2023 4:35 PM CDT Patient is a 72 year old, pt presents to ED for bilateral leg swelling x2-3 days. Pt denies chest pain and Shortness of breath. Family states I think she is fluid overloaded. Patient is a new dialysis pt. She need HD and she needs a sitter to accompany her, because she has a history of wondering away. Spoke to the patient's DTR who could not decide what to do for her mother. There is a question of Adult daycare vs custodial vs patient going home. DTR sent s list of SNF to look over. She will call me in the morning. CM will continue to follow and assist with discharge planning as needed. Discharge disposition pending DTR decision. 10/19/23 1632 Discharge Planning Support System Children Anticipated discharge level of care Private residence Does the patient need discharge transport arranged? (Not sure, depending on DTR's decision.) Post Acute Care Plan Type of Service Dialysis Type of Dialysis Hemodialysis Hemodialysis Time 1500 Transportation to Hemodialysis DTR trying to set it up. Post Acute Care Facility Yes (Waiting on DTR to decide.) Referral Status Started Jytoi Damon [employer] [facility] [phone] * Plan of Care - Gregory Lynch RN - 10/19/2023 11:12 AM CDT Problem: Discharge Planning Goal: Understanding discharge needs will improve Outcome: Progressing Problem: Fall Risk Goal: Ability to state ways to decrease the risk of falls will improve Outcome: Progressing Goal: Will remain free from falls Outcome: Progressing Goal: Will remain free from injury from falls Outcome: Progressing Problem: Disease Process Goal: Knowledge of disease or condition will improve Outcome: Progressing Goal: Seeking information regarding disease process or condition Outcome: Progressing Goal: Ability to make informed decisions regarding treatment will improve Outcome: Progressing Goal: Identification of resources available to assist in meeting health care needs will improve Outcome: Progressing Problem: Medication Regimen Goal: Knowledge of medication regimen will improve Outcome: Progressing Problem: Diagnostic Tests Goal: Knowledge of diagnostic tests will improve Outcome: Progressing Goal: Ability to verbalize follow-up procedures will improve Outcome: Progressing Problem: Treatment Goal: Expressions of comfortable level of knowledge will increase Outcome: Progressing Goal: Knowledge of prescribed therapeutic regimen will improve Outcome: Progressing Goal: Ability to make informed decisions regarding treatment will improve Outcome: Progressing Goal: Identification of resources available to assist in meeting health care needs will improve Outcome: Progressing Problem: Dietary Regimen Goal: Knowledge of prescribed regimen will improve Outcome: Progressing Goal: Ability to plan menus appropriate to prescribed diet will improve Outcome: Progressing Goal: Compliance with prescribed food intake will improve Outcome: Progressing Problem: Lack of [...] to Diabetes will improve Outcome: Progressing Problem: Lack of [...] functionality and self care Outcome: Progressing Problem: Cardiovascular Goal: Maintains optimal cardiac output and hemodynamic stability Outcome: Progressing Goal: Absence of cardiac dysrhythmias or at baseline Outcome: Progressing Problem: Skin/Tissue Integrity Goal: Skin integrity remains intact Outcome: Progressing Problem: Musculoskeletal Goal: Return mobility to safest level of function Outcome: Progressing Problem: Physical Regulation Description: Module [...] will be avoided or minimized Outcome: Progressing Goals: Clinical Goals for the Shift: monitor vs, safety, education, rest Summary: Patient stable with no complaints of pain. Currently in dialysis, pending placement. * Plan of Care - Ambar Barnes RN - 10/18/2023 11:37 PM CDT Goals: Clinical Goals for the Shift: monitor vs, safety, education, rest Summary: Assessment of patient???s baseline is established at the beginning of the shift in flowsheets. Patient reassessed per order, unexpected findings and/or deviations from baseline are captured in flowsheets. Frequent safety checks and comfort rounds provided. Orders and/or nursing care completed as indicated. Patient monitored for response to interventions and treatments as documented in flowsheets. Plan of care discussed with patient/order entry representative, including as it relates to Principal Problem: Acute on chronic diastolic congestive heart failure (CMS/HCC) (HCC) Active Problems: Diabetic neuropathy (HCC) Type 2 diabetes mellitus with diabetic neuropathy, with long-term current use of insulin (HCC) Primary hypertension Gastroesophageal reflux disease without esophagitis Mixed hyperlipidemia Schizoaffective disorder, bipolar type ([facility]) ([facility]) Anemia in stage 4 chronic kidney disease ([facility]) Acute kidney injury superimposed on CKD ([facility]) Leg swelling Diabetes mellitus with hyperglycemia ([facility]) ([facility]) Dyslipidemia Alzheimer's dementia ([facility]) Problem: Discharge Planning Goal: Understanding discharge needs will improve Outcome: Progressing Problem: Fall Risk Goal: Ability to state ways to decrease the risk of falls will improve Outcome: Progressing Goal: Will remain free from falls Outcome: Progressing Goal: Will remain free from injury from falls Outcome: Progressing Problem: Disease Process Goal: Knowledge of disease or condition will improve Outcome: Progressing Goal: Seeking information regarding disease process or condition Outcome: Progressing Goal: Ability to make informed decisions regarding treatment will improve Outcome: Progressing Goal: Identification of resources available to assist in meeting health care needs will improve Outcome: Progressing Problem: Medication Regimen Goal: Knowledge of medication regimen will improve Outcome: Progressing Problem: Diagnostic Tests Goal: Knowledge of diagnostic tests will improve Outcome: Progressing Goal: Ability to verbalize follow-up procedures will improve Outcome: Progressing Problem: Treatment Goal: Expressions of comfortable level of knowledge will increase Outcome: Progressing Goal: Knowledge of prescribed therapeutic regimen will improve Outcome: Progressing Goal: Ability to make informed decisions regarding treatment will improve Outcome: Progressing Goal: Identification of resources available to assist in meeting health care needs will improve Outcome: Progressing Problem: Dietary Regimen Goal: Knowledge of prescribed regimen will improve Outcome: Progressing Goal: Ability to plan menus appropriate to prescribed diet will improve Outcome: Progressing Goal: Compliance with prescribed food intake will improve Outcome: Progressing Problem: Lack of [...] to Diabetes will improve Outcome: Progressing Problem: Lack of [...] functionality and self care Outcome: Progressing Problem: Cardiovascular Goal: Maintains optimal cardiac output and hemodynamic stability Outcome: Progressing Goal: Absence of cardiac dysrhythmias or at baseline Outcome: Progressing Problem: Skin/Tissue Integrity Goal: Skin integrity remains intact Outcome: Progressing Problem: Musculoskeletal Goal: Return mobility to safest level of function Outcome: Progressing Problem: Physical Regulation Description: Module [...] will be avoided or minimized Outcome: Progressing * Plan of Care - Alessandra Cervantes LPN - 10/18/2023 6:58 PM CDT Problem: Discharge Planning Goal: Understanding discharge needs will improve Outcome: Progressing Problem: Fall Risk Goal: Ability to state ways to decrease the risk of falls will improve Outcome: Progressing Goal: Will remain free from falls Outcome: Progressing Goal: Will remain free from injury from falls Outcome: Progressing Problem: Disease Process Goal: Knowledge of disease or condition will improve Outcome: Progressing Goal: Seeking information regarding disease process or condition Outcome: Progressing Goal: Ability to make informed decisions regarding treatment will improve Outcome: Progressing Goal: Identification of resources available to assist in meeting health care needs will improve Outcome: Progressing Problem: Medication Regimen Goal: Knowledge of medication regimen will improve Outcome: Progressing Problem: Diagnostic Tests Goal: Knowledge of diagnostic tests will improve Outcome: Progressing Goal: Ability to verbalize follow-up procedures will improve Outcome: Progressing Problem: Treatment Goal: Expressions of comfortable level of knowledge will increase Outcome: Progressing Goal: Knowledge of prescribed therapeutic regimen will improve Outcome: Progressing Goal: Ability to make informed decisions regarding treatment will improve Outcome: Progressing Goal: Identification of resources available to assist in meeting health care needs will improve Outcome: Progressing Problem: Dietary Regimen Goal: Knowledge of prescribed regimen will improve Outcome: Progressing Goal: Ability to plan menus appropriate to prescribed diet will improve Outcome: Progressing Goal: Compliance with prescribed food intake will improve Outcome: Progressing Problem: Lack of [...] to Diabetes will improve Outcome: Progressing Problem: Lack of [...] functionality and self care Outcome: Progressing Problem: Cardiovascular Goal: Maintains optimal cardiac output and hemodynamic stability Outcome: Progressing Goal: Absence of cardiac dysrhythmias or at baseline Outcome: Progressing Problem: Skin/Tissue Integrity Goal: Skin integrity remains intact Outcome: Progressing Problem: Musculoskeletal Goal: Return mobility to safest level of function Outcome: Progressing Problem: Physical Regulation Description: Module [...] will be avoided or minimized Outcome: Progressing Goals: Clinical Goals for the Shift: safety,comfort,pain control,conionous sitter Summary: total nurse care provided * Plan of Care - Lucinda Bearden RN - 10/17/2023 9:48 PM CDT Goals: Clinical Goals for the Shift: safety,comfort,pain control,conionous sitter Summary: Problem: Discharge Planning Goal: Understanding discharge needs will improve Outcome: Progressing Problem: Fall Risk Goal: Ability to state ways to decrease the risk of falls will improve Outcome: Progressing Goal: Will remain free from falls Outcome: Progressing Goal: Will remain free from injury from falls Outcome: Progressing Problem: Disease Process Goal: Knowledge of disease or condition will improve Outcome: Progressing Goal: Seeking information regarding disease process or condition Outcome: Progressing Goal: Ability to make informed decisions regarding treatment will improve Outcome: Progressing Goal: Identification of resources available to assist in meeting health care needs will improve Outcome: Progressing Problem: Medication Regimen Goal: Knowledge of medication regimen will improve Outcome: Progressing Problem: Diagnostic Tests Goal: Knowledge of diagnostic tests will improve Outcome: Progressing Goal: Ability to verbalize follow-up procedures will improve Outcome: Progressing Problem: Treatment Goal: Expressions of comfortable level of knowledge will increase Outcome: Progressing Goal: Knowledge of prescribed therapeutic regimen will improve Outcome: Progressing Goal: Ability to make informed decisions regarding treatment will improve Outcome: Progressing Goal: Identification of resources available to assist in meeting health care needs will improve Outcome: Progressing Problem: Dietary Regimen Goal: Knowledge of prescribed regimen will improve Outcome: Progressing Goal: Ability to plan menus appropriate to prescribed diet will improve Outcome: Progressing Goal: Compliance with prescribed food intake will improve Outcome: Progressing Problem: Lack of [...] to Diabetes will improve Outcome: Progressing Problem: Lack of [...] functionality and self care Outcome: Progressing Problem: Cardiovascular Goal: Maintains optimal cardiac output and hemodynamic stability Outcome: Progressing Goal: Absence of cardiac dysrhythmias or at baseline Outcome: Progressing Problem: Skin/Tissue Integrity Goal: Skin integrity remains intact Outcome: Progressing Problem: Musculoskeletal Goal: Return mobility to safest level of function Outcome: Progressing Problem: Physical Regulation Description: Module [...] will be avoided or minimized Outcome: Progressing * Plan of Care - Alessandra Cervantes LPN - 10/17/2023 6:54 PM CDT Problem: Discharge Planning Goal: Understanding discharge needs will improve Outcome: Progressing Problem: Fall Risk Goal: Ability to state ways to decrease the risk of falls will improve Outcome: Progressing Goal: Will remain free from falls Outcome: Progressing Goal: Will remain free from injury from falls Outcome: Progressing Problem: Disease Process Goal: Knowledge of disease or condition will improve Outcome: Progressing Goal: Seeking information regarding disease process or condition Outcome: Progressing Goal: Ability to make informed decisions regarding treatment will improve Outcome: Progressing Goal: Identification of resources available to assist in meeting health care needs will improve Outcome: Progressing Problem: Medication Regimen Goal: Knowledge of medication regimen will improve Outcome: Progressing Problem: Diagnostic Tests Goal: Knowledge of diagnostic tests will improve Outcome: Progressing Goal: Ability to verbalize follow-up procedures will improve Outcome: Progressing Problem: Treatment Goal: Expressions of comfortable level of knowledge will increase Outcome: Progressing Goal: Knowledge of prescribed therapeutic regimen will improve Outcome: Progressing Goal: Ability to make informed decisions regarding treatment will improve Outcome: Progressing Goal: Identification of resources available to assist in meeting health care needs will improve Outcome: Progressing Problem: Dietary Regimen Goal: Knowledge of prescribed regimen will improve Outcome: Progressing Goal: Ability to plan menus appropriate to prescribed diet will improve Outcome: Progressing Goal: Compliance with prescribed food intake will improve Outcome: Progressing Problem: Lack of [...] to Diabetes will improve Outcome: Progressing Problem: Lack of [...] functionality and self care Outcome: Progressing Problem: Cardiovascular Goal: Maintains optimal cardiac output and hemodynamic stability Outcome: Progressing Goal: Absence of cardiac dysrhythmias or at baseline Outcome: Progressing Problem: Skin/Tissue Integrity Goal: Skin integrity remains intact Outcome: Progressing Problem: Musculoskeletal Goal: Return mobility to safest level of function Outcome: Progressing Problem: Physical Regulation Description: Module [...] will be avoided or minimized Outcome: Progressing Goals: Clinical Goals for the Shift: safety,comfort,pain control,conionous sitter Summary: total nurse care provided * Consults, Subsequent - Lulú Recio M.A. - 10/17/2023 5:47 PM CDT [facility] ([facility]) [facility] Inpatient Follow-Up Note Date: 10/17/23 Patient Name: Sixto Chakraborty Medical Record: [id number] Date of : 1950 Assessment start time: 1748 Assessment end time: 1752 Assessment Briefly, Sixto Chakraborty is a 72 y.o. Black Or female who presented initially to the hospital with congestive heart failure. [facility] reviewed chart. Patient has a past psychiatric history of schizoaffective disorder and dementia. [facility] messaged with patient's nurse, Billy, to discuss the patient's current status. Nurse reports no concerns. Patient has been cooperative with care. Patient has not exhibited any self-harm behaviors. Nurse reports that the patient has not been exhibiting any behaviors that interfere with the staff's ability to provide care. Patient has been compliant with their medication(s). Patient has not required PRN medication to address behavior. Patient was seen by Psychiatrist, Dr. Gomez on 10/15/23 for evaluation. Recommendations were 1. Patient does not meet criteria for inpatient psych admission. 2. Continue Risperdal 1mg qhs, continue olanzapine 2.5mg po or IM prn psychosis or agitation. Current psychotropic medications: Risperdal 1mg qhs Olanzapine 2.5mg po or IM prn QMHP met with patient today for follow-up. Patient is Alert and oriented x4. Patient reports I'm feeling not good... my son hasn't come home yet from school... I'm watching and I don't see him yet Patient currently denies suicidal thoughts. Patient denies homicidal thoughts. Sixto rates their depre ssion as a 9 on a scale of 0/10, with 10 being the highest. Sixto rates their anxiety as a 5 on a scale of 0/10, with 10 being the highest. Patient denies any paranoia, hallucinations or delusions. Patient given opportunity to ask questions. Provided support. Mental Status Exam Appearance/hygiene: wearing hospital gown Behavior: alert Psychomotor: normal/no abnormality Speech: of normal rate and rhythm Thought process: tangential Thought content: no suicidal ideations, no homicidal ideations, and no delusions Perception: no hallucinations. Patient does not appear to be responding to internal stimuli. Affect: anxious which is congruent with their overall presentation. Mood: Pt states mood is: not good Insight: poor Judgement: poor Recommendations and Plan of Care Recommendations: /DO Adames and QMHP discussed patient evaluation. Based on the clinical presentation of patient denying suicidal thoughts, homicidal thoughts, and psychotic symptoms, patient does not meet criteria for inpatient psychiatric admission. There are no affidavits related to this encounter to review for patient at [facility]. Plan of Care: ~ No further intervention needed from Behavioral Health Services at this time, we will sign off on patient. Please contact [facility] for any further needs. [phone]. Patient will be discharged. ~[facility] has completed After Visit Summary on patient. What staff can do proactively: For Dementia/Major Cognitive Disorder/Confusion: ~ If patient has glasses and/or hearing aids, please ensure they are wearing them ~ Encourage family to visit with patient to reinforce orientation ~ Encourage patient to sleep at night by making sure TV is turned off, distractions are limited andlights are off ~ Ensure that during daylight hours the room is well lit ~ Discourage sleeping during the day ~ Instructions/requests by staff should be concise and given one step at a time ~ Talk clearly and use short sentences in a calm voice ~ Do not argue, confront or challenge the patient ~ Reorient patient to reality Care Plan while remaining in hospital: Patient Strengths: Insurance and Supportive relationships (family, friends, peers) Patient Coping Mechanisms: Talking with friends/family Patient Triggers: Physical illness Distractions and things that may help: Be specific on time frames and follow them and Give options when possible Additional Assessments: [place] Suicide Severity Rating Scale Recent Screener (Since Last Contact) [place] Suicide Severity Rating Scale (Since Last Contact Screener) 1. Wish to be (Since Last Contact): No 2. Non-Specific Active Suicidal Thoughts (Since Last Contact): No 6. Suicidal Behavior (Since Last Contact): No Calculated C-SSRS Risk Score (Since Last Contact): No Risk Indicated Thank you for the opportunity to participate in this patient's care. [facility] will continue to follow. Lulú Recio M.A. Behavioral Health [facility] Telehealth Patient? Yes Telehealth Patient? Yes This was a telepsych/telemedicine visit with Sixto Chakraborty which took place via real-time video connection with [employer]. During the visit, I was located at my residence, and the patient was located at [facility] in the [facility]. My visit with the patient started at 1749 and ended at 1753. After being given an opportunity to ask questions about and discuss this type of visit, the patientand/or guardian verbally consented to proceeding with the video visit. The patient and/or guardian understands that they may be billed and/or responsible for any applicable copayments. The patient and/or guardian agrees to participate in a psychiatric assessment service via Interactive Video Conferencing with a Qualified Mental Health Professional. Patient and/or guardian understands that their privacy and confidentiality will be protected at all times and all reasonable and appropriate measures will be made to eliminate all confidentiality risks. Patient and/or guardian understands that the s ervices they receive are part of the patient's hospital record. Patient and/or guardian is aware that the [facility] and Hospital Staff will have access to the patient's relevant medical information including psychiatric and/or psychological information, alcohol and/or drug use and mental health records. Patient and/or guardian understands this consent is part of the patient's medical record. * Plan of Care - Lucinda Bearden RN - 10/16/2023 9:26 PM CDT Goals: Clinical Goals for the Shift: safety,comfort,pain control,conionous sitter Summary: Problem: Discharge Planning Goal: Understanding discharge needs will improve Outcome: Progressing Problem: Fall Risk Goal: Ability to state ways to decrease the risk of falls will improve Outcome: Progressing Goal: Will remain free from falls Outcome: Progressing Goal: Will remain free from injury from falls Outcome: Progressing Problem: Disease Process Goal: Knowledge of disease or condition will improve Outcome: Progressing Goal: Seeking information regarding disease process or condition Outcome: Progressing Goal: Ability to make informed decisions regarding treatment will improve Outcome: Progressing Goal: Identification of resources available to assist in meeting health care needs will improve Outcome: Progressing Problem: Medication Regimen Goal: Knowledge of medication regimen will improve Outcome: Progressing Problem: Diagnostic Tests Goal: Knowledge of diagnostic tests will improve Outcome: Progressing Goal: Ability to verbalize follow-up procedures will improve Outcome: Progressing Problem: Treatment Goal: Expressions of comfortable level of knowledge will increase Outcome: Progressing Goal: Knowledge of prescribed therapeutic regimen will improve Outcome: Progressing Goal: Ability to make informed decisions regarding treatment will improve Outcome: Progressing Goal: Identification of resources available to assist in meeting health care needs will improve Outcome: Progressing Problem: Dietary Regimen Goal: Knowledge of prescribed regimen will improve Outcome: Progressing Goal: Ability to plan menus appropriate to prescribed diet will improve Outcome: Progressing Goal: Compliance with prescribed food intake will improve Outcome: Progressing Problem: Lack of [...] to Diabetes will improve Outcome: Progressing Problem: Lack of [...] functionality and self care Outcome: Progressing Problem: Cardiovascular Goal: Maintains optimal cardiac output and hemodynamic stability Outcome: Progressing Goal: Absence of cardiac dysrhythmias or at baseline Outcome: Progressing Problem: Skin/Tissue Integrity Goal: Skin integrity remains intact Outcome: Progressing Problem: Musculoskeletal Goal: Return mobility to safest level of function Outcome: Progressing * Plan of Pee - Jovita Mcnulty RN - 10/16/2023 9:10 AM CDT Goals: Clinical Goals for the Shift: safety rounds, pain management, monitor labs, VS, I&O, Sitter at bedside, HD today, monitor BG, keep pt comfortable and free of falls Summary: Problem: Discharge Planning Goal: Understanding discharge needs will improve Outcome: Progressing Problem: Fall Risk Goal: Will remain free from falls Outcome: Progressing Problem: Disease Process Goal: Knowledge of disease or condition will improve Outcome: Progressing Problem: Disease Process Goal: Seeking information regarding disease process or condition Outcome: Progressing Problem: Medication Regimen Goal: Knowledge of medication regimen will improve Outcome: Progressing Problem: Diagnostic Tests Goal: Knowledge of diagnostic tests will improve Outcome: Progressing Problem: Treatment Goal: Expressions of comfortable level of knowledge will increase Outcome: Progressing * Plan of Mauricio Bird RN - 10/16/2023 3:22 AM CDT Problem: Discharge Planning Goal: Understanding discharge needs will improve Outcome: Progressing Goals: Clinical Goals for the Shift: [place] VS,labs,safety Summary: Problem: Fall Risk Goal: Ability to state ways to decrease the risk of falls will improve Outcome: Progressing Goal: Will remain free from falls Outcome: Progressing Goal: Will remain free from injury from falls Outcome: Progressing Problem: Disease Process Goal: Knowledge of disease or condition will improve Outcome: Progressing Goal: Seeking information regarding disease process or condition Outcome: Progressing Goal: Ability to make informed decisions regarding treatment will improve Outcome: Progressing Goal: Identification of resources available to assist in meeting health care needs will improve Outcome: Progressing Problem: Medication Regimen Goal: Knowledge of medication regimen will improve Outcome: Progressing Problem: Diagnostic Tests Goal: Knowledge of diagnostic tests will improve Outcome: Progressing Goal: Ability to verbalize follow-up procedures will improve Outcome: Progressing * Plan of Care - Latosha Mendez RN - 10/15/2023 3:57 PM CDT Goals: Clinical Goals for the Shift: Maintain stable VS Labs, pain control, HD cath today, safety/comfort Summary: Problem: Discharge Planning Goal: Understanding discharge needs will improve Outcome: Progressing Flowsheets (Taken 10/08/2023 0532 by Abram Hampton) Understanding of discharge needs will improve: Identify discharge learning needs (meds, wound care, etc.) Identify discharge barriers Problem: Fall Risk Goal: Ability to state ways to decrease the risk of falls will improve Outcome: Progressing Goal: Will remain free from falls Outcome: Progressing Goal: Will remain free from injury from falls Outcome: Progressing Problem: Disease Process Goal: Knowledge of disease or condition will improve Outcome: Progressing Goal: Seeking information regarding disease process or condition Outcome: Progressing Goal: Ability to make informed decisions regarding treatment will improve Outcome: Progressing Goal: Identification of resources available to assist in meeting health care needs will improve Outcome: Progressing Problem: Medication Regimen Goal: Knowledge of medication regimen will improve Outcome: Progressing Problem: Diagnostic Tests Goal: Knowledge of diagnostic tests will improve Outcome: Progressing Goal: Ability to verbalize follow-up procedures will improve Outcome: Progressing Problem: Treatment Goal: Expressions of comfortable level of knowledge will increase Outcome: Progressing Goal: Knowledge of prescribed therapeutic regimen will improve Outcome: Progressing Goal: Ability to make informed decisions regarding treatment will improve Outcome: Progressing Goal: Identification of resources available to assist in meeting health care needs will improve Outcome: Progressing Problem: Dietary Regimen Goal: Knowledge of prescribed regimen will improve Outcome: Progressing Goal: Ability to plan menus appropriate to prescribed diet will improve Outcome: Progressing Goal: Compliance with prescribed food intake will improve Outcome: Progressing Problem: Lack of [...] to Diabetes will improve Outcome: Progressing Problem: Lack of [...] functionality and self care Outcome: Progressing Problem: Cardiovascular Goal: Maintains optimal cardiac output and hemodynamic stability Outcome: Progressing Goal: Absence of cardiac dysrhythmias or at baseline Outcome: Progressing * Consults, Subsequent - Daisy Gomez DO - 10/15/2023 2:19 PM CDT Images from the original note were not included. Telepsychiatry Follow-Up Consult Note Note entered at: 2:19 PM Patient Name: Sixto Chakraborty Date of : 1950 Medical Record: [id number] Name: Sixto Chakraborty : 1950 Date and Time: 10/15/2023 2:00:00 PM Location of the patient: [facility] Location of the doctor: [place] Length of consult: 35min This evaluation was conducted via video telepsychiatry with the assistance of onsite staff Reason for consult: follow up Requested by: Calin Link History of Present Illness: 72yo female with h/o schizoaffective disorder and dementia admitted 10/06 for CHF. Last seen by psychiatry on 10/12, Risperdal decreased to 1mg qHS for confusion. Psychiatryconsult today for follow up. Patient reports doing pretty well today. States mood is good and denies depressed mood or anxiety symptoms. States she slept well last night and no issues with appetite. She knows month is september and year is 2023. Does seem to struggle to hear questions at time and provides answers that are not appropriate to the question, but upon re asking the question, patient seems to do well. She denies SI/HI, denies AVH. Medications & Freq: Current Facility-Administered Medications Medication Dose Route Frequency Provider Last Rate Last Admin acetaminophen (TYLENOL) tablet 650 mg 650 mg oral Q6H PRN Rosa Jade NP 650 mg at 10/12/23 1111 amLODIPine (NORVASC) tablet 10 mg 10 mg oral Daily Wally Plummer MD 10 mg at 259 atorvastatin (LIPITOR) tablet 20 mg 20 mg oral Nightly Rosa Jade NP 20 mg at 10/14/23 2235 benztropine (COGENTIN) tablet 1.5 mg 1.5 mg oral Nightly Bev Adames MD 1.5 mg at 10/14/23 2235 calcium acetate(phosphat bind) (PHOSLO) capsule 1,334 mg 1,334 mg oral TID with meals Jimbo Strauss MD 1,334 mg at 10/15/23 1405 dextrose oral liquid liquid 15 g 15 g oral Q15 Min PRN Rosa Jade NP Or dextrose (D10W) 10% bolus 250 mL 250 mL intravenous Q15 Min PRN Rosa Jade NP enoxaparin (LOVENOX) syringe 30 mg 30 mg subcutaneous Daily-2100 Alejandro Guillaume MD 30 mg at 10/14/23 2236 famotidine (PEPCID) tablet 10 mg 10 mg oral Daily Rosa Jade NP 10 mg at 10/15/23 1259 ferrous sulfate delayed release tablet 65 mg of elemental iron 65 mg of elemental iron oral BID Rosa Jade NP 65 mg of elemental iron at 10/15/23 1259 fluticasone propionate (FLONASE) 50 mcg/actuation nasal spray 2 spray 2 spray each nostril Daily Rosa Jade NP 2 spray at 10/15/23 1301 [Held by Provider] furosemide (LASIX) 10 mg/mL injection 40 mg 40 mg intravenous BID DIURETIC Rosa Jade NP 40 mg at 10/09/23 180 glucagon injection 1 mg 1 mg intramuscular Q30 Min PRN Rosa Jade NP insulin glargine (LANTUS, SEMGLEE) 100 unit/mL injection 15 Units 0.25 Units/kg subcutaneous Nightly Rosa Jade NP 15 Units at 10/14/23 224 insulin lispro (HumaLOG, ADMELOG) 100 unit/mL injection 0-10 Units 0-10 Units subcutaneous TID withmeals Rosa Jade NP 2 Units at 10/14/231812 insulin lispro (HumaLOG, ADMELOG) 100 unit/mL injection 0-5 Units 0-5 Units subcutaneous Nightly Rosa Jade NP 2 Units at 10/12/232119 insulin lispro (HumaLOG, ADMELOG) 100 unit/mL injection 5 Units 0.083 Units/kg subcutaneous TID with meals Rosa Jade NP 5 Units at 10/14/231812 metoprolol tartrate (LOPRESSOR) immediate release tablet 25 mg 25 mg oral BID Bev Adames MD 25 mg at 10/15/23 1259 OLANZapine (ZyPREXA) 2.5 mg in sterile water 0.5 mL (5 mg/mL) syringe 2.5 mg intramuscular Q12H PRDeepti Hutchins MD OLANZapine (ZyPREXA) tablet 2.5 mg 2.5 mg oral BID PRN Deepti Sands MD ondansetron (ZOFRAN) injection 4 mg 4 mg intravenous Q6H PRN Rosa Jade NP ramelteon (ROZEREM) tablet 8 mg 8 mg oral Nightly PRN Sujatha Montes De Oca NP 8 mg at 10/13/23 225 risperiDONE (RisperDAL) tablet 1 mg 1 mg oral Nightly Deepti Sands MD 1 mg at 10/14/23 2235 Allergies: NKDA Mental Status Exam: Appearance and Attire: Good eye contact Psychomotor agitation: No abnormality Attitude and behavior: Cooperative Speech: Soft Mood: good Affect: Restricted Thought process: Coherent Thought content: No suicidal ideation, No homicidal ideation, No paranoia, No delusions Perception: No hallucinations Intel: Average Abstract: [place] Language: No abnormality Orientation: Oriented to person, Oriented to place, Oriented to time, time- month and year Sense: Distractible Knowledge: Appropriate for education and socioeconomic status Memory: unable to formally assess Insight: Moderate impairment Judgement: Moderate impairment Gait: not assessed Impression/Risk Assessment: Current Suicide Risk Elevated? No Current Violence Risk Elevated? Yes Description: when confused Issues with ability to care for self? Yes Summary: 72yo female with h/o schizoaffective disorder and dementia admitted 10/06 for CHF. Pt was on Risperdal 2mg qhs but was off meds x 1 year and then restarted about a month prior to admission. 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 Patient was last seen by psychiatry on 10/12, Risperdal decreased to 1mg qHS for confusion. Since that time, confusion does seem improved as patient knows month and year and knows she had a port placed. Diagnosis: F03.91 Unspecified dementia with behavioral disturbance, F25.9 Schizoaffective disorder,unspecified CPT Codes: 01513 - Moderate Complexity Follow-up (IP) - 35 min Treatment Plan: General: 1. Patient does not meet criteria for inpatient psych admission. 2. Continue Risperdal 1mgqhs, continue olanzapine 2.5mg po or IM prn psychosis or agitation. May consider decreasing Cogentin as this may increase confusion. Level of Care: defer to medical team; pt does not require inpatient psych admission Psychiatric Clearance: Yes Observation level - 1:1 needed?: Yes Notes: or per hospital protocol for dementia Pharmacological: see above Patient psychotic?No Therapy: supportive Follow up needed while in the hospital?: Yes Follow up Frequency: As Needed Discussed plan with onsite steam and gas turbine assembler: Yes Who RN Other: * Plan of Care - Jyoti Damon RN - 10/15/2023 9:41 AM CDT Called patient's DTR at [phone] and [phone] to obtain updated discharge planning information. There was no answer at either number. CM will continue to follow and assist with discharge planning as needed. Discharge disposition: 01 Home 10/15/23 0939 Discharge Planning Support System Children Anticipated discharge level of care Private residence Does the patient need discharge transport arranged? No Post Acute Care Plan Home Care Services (Patient will start diayisis at discharge.) Jyoti Damon [employer] [phone] * Perioperative Nursing Note - Ktia Spencer RN - 10/15/2023 8:33 AM CDT Arrived from inpatient unit for ordered tunneled HD catheter placement. NAD. A&OX2. Consent perdaughter * Plan of Care - Court Cabrera RN - 10/15/2023 5:00 AM CDT Goals: Clinical Goals for the Shift: pain control, stable VS/blood sugars, monitor labs, free from signs of infection/increased swelling, safety/comfort Problem: Discharge Planning Goal: Understanding discharge needs will improve Outcome: Ongoing Problem: Fall Risk Goal: Ability to state ways to decrease the risk of falls will improve Outcome: Ongoing Goal: Will remain free from falls Outcome: Ongoing Goal: Will remain free from injury from falls Outcome: Ongoing Problem: Disease Process Goal: Knowledge of disease or condition will improve Outcome: Ongoing Goal: Seeking information regarding disease process or condition Outcome: Ongoing Goal: Ability to make informed decisions regarding treatment will improve Outcome: Ongoing Goal: Identification of resources available to assist in meeting health care needs will improve Outcome: Ongoing Problem: Medication Regimen Goal: Knowledge of medication regimen will improve Outcome: Ongoing Problem: Diagnostic Tests Goal: Knowledge of diagnostic tests will improve Outcome: Ongoing Goal: Ability to verbalize follow-up procedures will improve Outcome: Ongoing Problem: Treatment Goal: Expressions of comfortable level of knowledge will increase Outcome: Ongoing Goal: Knowledge of prescribed therapeutic regimen will improve Outcome: Ongoing Goal: Ability to make informed decisions regarding treatment will improve Outcome: Ongoing Goal: Identification of resources available to assist in meeting health care needs will improve Outcome: Ongoing Problem: Dietary Regimen Goal: Knowledge of prescribed regimen will improve Outcome: Ongoing Goal: Ability to plan menus appropriate to prescribed diet will improve Outcome: Ongoing Goal: Compliance with prescribed food intake will improve Outcome: Ongoing Problem: Lack of [...] to Diabetes will improve Outcome: Ongoing Problem: Lack of [...] or improved neurological status Outcome: Ongoing Goal: Achieves maximal functionality and self care Outcome: Ongoing Problem: Cardiovascular Goal: Maintains optimal cardiac output and hemodynamic stability Outcome: Ongoing Goal: Absence of cardiac dysrhythmias or at baseline Outcome: Ongoing * Plan of Care - Jyoti Damon RN - 10/14/2023 4:14 PM CDT Chart review for discharge planning: Patient is a 72-year-old female with history of arthritis, CHF, dementia, depression, diabetic neuropathy, hyperlipidemia, advance insufficiency who came to the hospital with complaint of lower extremity swelling. Patient was diagnosed with volume overload. Consult with Dr. العلي regarding renal insufficiency. CM will continue to follow and assist with discharge planning as needed. Discharge disposition: 01 Jyoti Damon [facility] [place] [phone] * Plan of Care - Latosha Mendez RN - 10/14/2023 3:28 PM CDT Goals: Clinical Goals for the Shift: Maintain stable VS, Labs, safety/comfort Summary: Problem: Discharge Planning Goal: Understanding discharge needs will improve Outcome: Progressing Flowsheets (Taken 10/08/2023 [id number] by Abram Hampton) Understanding of discharge needs will improve: Identify discharge learning needs (meds, wound care, etc.) Identify discharge barriers Problem: Fall Risk Goal: Ability to state ways to decrease the risk of falls will improve Outcome: Progressing Goal: Will remain free from falls Outcome: Progressing Goal: Will remain free from injury from falls Outcome: Progressing Problem: Disease Process Goal: Knowledge of disease or condition will improve Outcome: Progressing Goal: Seeking information regarding disease process or condition Outcome: Progressing Goal: Ability to make informed decisions regarding treatment will improve Outcome: Progressing Goal: Identification of resources available to assist in meeting health care needs will improve Outcome: Progressing Problem: Medication Regimen Goal: Knowledge of medication regimen will improve Outcome: Progressing Problem: Diagnostic Tests Goal: Knowledge of diagnostic tests will improve Outcome: Progressing Goal: Ability to verbalize follow-up procedures will improve Outcome: Progressing Problem: Treatment Goal: Expressions of comfortable level of knowledge will increase Outcome: Progressing Goal: Knowledge of prescribed therapeutic regimen will improve Outcome: Progressing Goal: Ability to make informed decisions regarding treatment will improve Outcome: Progressing Goal: Identification of resources available to assist in meeting health care needs will improve Outcome: Progressing Problem: Dietary Regimen Goal: Knowledge of prescribed regimen will improve Outcome: Progressing Goal: Ability to plan menus appropriate to prescribed diet will improve Outcome: Progressing Goal: Compliance with prescribed food intake will improve Outcome: Progressing Problem: Lack of [...] to Diabetes will improve Outcome: Progressing Problem: Lack of [...] functionality and self care Outcome: Progressing Problem: Cardiovascular Goal: Maintains optimal cardiac output and hemodynamic stability Outcome: Progressing Goal: Absence of cardiac dysrhythmias or at baseline Outcome: Progressing * Plan of Care - Court Cabrera RN - 10/14/2023 5:14 AM CDT Goals: Clinical Goals for the Shift: pain control, stable VS/blood sugars, monitor labs, free from signs of infection/increased swelling, safety/comfort Problem: Discharge Planning Goal: Understanding discharge needs will improve Outcome: Ongoing Problem: Fall Risk Goal: Ability to state ways to decrease the risk of falls will improve Outcome: Ongoing Goal: Will remain free from falls Outcome: Ongoing Goal: Will remain free from injury from falls Outcome: Ongoing Problem: Disease Process Goal: Knowledge of disease or condition will improve Outcome: Ongoing Goal: Seeking information regarding disease process or condition Outcome: Ongoing Goal: Ability to make informed decisions regarding treatment will improve Outcome: Ongoing Goal: Identification of resources available to assist in meeting health care needs will improve Outcome: Ongoing Problem: Medication Regimen Goal: Knowledge of medication regimen will improve Outcome: Ongoing Problem: Diagnostic Tests Goal: Knowledge of diagnostic tests will improve Outcome: Ongoing Goal: Ability to verbalize follow-up procedures will improve Outcome: Ongoing Problem: Treatment Goal: Expressions of comfortable level of knowledge will increase Outcome: Ongoing Goal: Knowledge of prescribed therapeutic regimen will improve Outcome: Ongoing Goal: Ability to make informed decisions regarding treatment will improve Outcome: Ongoing Goal: Identification of resources available to assist in meeting health care needs will improve Outcome: Ongoing Problem: Dietary Regimen Goal: Knowledge of prescribed regimen will improve Outcome: Ongoing Goal: Ability to plan menus appropriate to prescribed diet will improve Outcome: Ongoing Goal: Compliance with prescribed food intake will improve Outcome: Ongoing Problem: Lack of [...] to Diabetes will improve Outcome: Ongoing Problem: Lack of [...] or improved neurological status Outcome: Ongoing Goal: Achieves maximal functionality and self care Outcome: Ongoing Problem: Cardiovascular Goal: Maintains optimal cardiac output and hemodynamic stability Outcome: Ongoing Goal: Absence of cardiac dysrhythmias or at baseline Outcome: Ongoing * Plan of Care - Homer Pavon RN - 10/13/2023 6:47 PM CDT Goals: Clinical Goals for the Shift: drug safety specialist, free of falls, pain control, rx admin, stable labs/vs/bg, Summary: Problem: Discharge Planning Goal: Understanding discharge needs will improve Outcome: Ongoing Problem: Fall Risk Goal: Will remain free from falls Outcome: Ongoing Problem: Disease Process Goal: Ability to make informed decisions regarding treatment will improve Outcome: Ongoing Problem: Diagnostic Tests Goal: Ability to verbalize follow-up procedures will improve Outcome: Ongoing Problem: Treatment Goal: Expressions of comfortable level of knowledge will increase Outcome: Ongoing * Plan of Pee - Paz Palencia - 10/12/2023 10:16 PM CDT Problem: Discharge Planning Goal: Understanding discharge needs will improve Outcome: Progressing Problem: Fall Risk Goal: Ability to state ways to decrease the risk of falls will improve Outcome: Progressing Goal: Will remain free from falls Outcome: Progressing Goal: Will remain free from injury from falls Outcome: Progressing Problem: Disease Process Goal: Knowledge of disease or condition will improve Outcome: Progressing Goal: Seeking information regarding disease process or condition Outcome: Progressing Goal: Ability to make informed decisions regarding treatment will improve Outcome: Progressing Goal: Identification of resources available to assist in meeting health care needs will improve Outcome: Progressing Problem: Medication Regimen Goal: Knowledge of medication regimen will improve Outcome: Progressing Problem: Diagnostic Tests Goal: Knowledge of diagnostic tests will improve Outcome: Progressing Goal: Ability to verbalize follow-up procedures will improve Outcome: Progressing Problem: Treatment Goal: Expressions of comfortable level of knowledge will increase Outcome: Progressing Goal: Knowledge of prescribed therapeutic regimen will improve Outcome: Progressing Goal: Ability to make informed decisions regarding treatment will improve Outcome: Progressing Goal: Identification of resources available to assist in meeting health care needs will improve Outcome: Progressing Problem: Dietary Regimen Goal: Knowledge of prescribed regimen will improve Outcome: Progressing Goal: Ability to plan menus appropriate to prescribed diet will improve Outcome: Progressing Goal: Compliance with prescribed food intake will improve Outcome: Progressing Problem: Lack of [...] to Diabetes will improve Outcome: Progressing Problem: Lack of [...] functionality and self care Outcome: Progressing Problem: Cardiovascular Goal: Maintains optimal cardiac output and hemodynamic stability Outcome: Progressing Goal: Absence of cardiac dysrhythmias or at baseline Outcome: Progressing Goals: Clinical Goals for the Shift: drug safety specialist, free of falls, pain control, rx admin, stable labs/vs/bg, Summary: Pt goals are progressing * Plan of Care - Homer Pavon RN - 10/12/2023 6:38 PM CDT Goals: Clinical Goals for the Shift: drug safety specialist, free of falls, pain control, rx admin, stable labs/vs/bg, Summary: pt aox3 resting in bed, drug safety specialist continues at bedside, no unsafe behaviors all shift,BG tx per orders, VSS, remains free of falls, Problem: Fall Risk Goal: Will remain free from falls Outcome: Ongoing Problem: Disease Process Goal: Knowledge of disease or condition will improve Outcome: Ongoing Problem: Disease Process Goal: Identification of resources available to assist in meeting health care needs will improve Outcome: Ongoing Problem: Treatment Goal: Knowledge of prescribed therapeutic regimen will improve Outcome: Ongoing * Plan of Care - Jyoti Damon RN - 10/12/2023 12:22 PM CDT Chart review for discharge planning: Discussed in DCAM. Patient is a 72 year old female admitted with c/o SOB, found to have acute on chronic diastolic heart failure. She was a direct admit from her dr's office. Her creatinine was 10/11 was 5.33. She has edema to her legs and Pt is recommending- home with family with 24 hour supervision. CM will continue to follow and assist with discharge planning as needed. Discharge disposition pending hospital course. Jyoti Damon [employer] [place] [phone] * Plan of Care - Court Cabrera RN - 10/12/2023 4:20 AM CDT Goals: Clinical Goals for the Shift: pain control, stable VS/blood sugars, monitor labs, free from signs of infection/increased swelling, safety/comfort Problem: Discharge Planning Goal: Understanding discharge needs will improve Outcome: Ongoing Problem: Fall Risk Goal: Ability to state ways to decrease the risk of falls will improve Outcome: Ongoing Goal: Will remain free from falls Outcome: Ongoing Goal: Will remain free from injury from falls Outcome: Ongoing Problem: Disease Process Goal: Knowledge of disease or condition will improve Outcome: Ongoing Goal: Seeking information regarding disease process or condition Outcome: Ongoing Goal: Ability to make informed decisions regarding treatment will improve Outcome: Ongoing Goal: Identification of resources available to assist in meeting health care needs will improve Outcome: Ongoing Problem: Medication Regimen Goal: Knowledge of medication regimen will improve Outcome: Ongoing Problem: Diagnostic Tests Goal: Knowledge of diagnostic tests will improve Outcome: Ongoing Goal: Ability to verbalize follow-up procedures will improve Outcome: Ongoing Problem: Treatment Goal: Expressions of comfortable level of knowledge will increase Outcome: Ongoing Goal: Knowledge of prescribed therapeutic regimen will improve Outcome: Ongoing Goal: Ability to make informed decisions regarding treatment will improve Outcome: Ongoing Goal: Identification of resources available to assist in meeting health care needs will improve Outcome: Ongoing Problem: Dietary Regimen Goal: Knowledge of prescribed regimen will improve Outcome: Ongoing Goal: Ability to plan menus appropriate to prescribed diet will improve Outcome: Ongoing Goal: Compliance with prescribed food intake will improve Outcome: Ongoing Problem: Lack of [...] to Diabetes will improve Outcome: Ongoing Problem: Lack of [...] or improved neurological status Outcome: Ongoing Goal: Achieves maximal functionality and self care Outcome: Ongoing Problem: Cardiovascular Goal: Maintains optimal cardiac output and hemodynamic stability Outcome: Ongoing Goal: Absence of cardiac dysrhythmias or at baseline Outcome: Ongoing * Plan of Care - Alessandra Cervantes LPN - 10/11/2023 4:45 PM CDT Problem: Discharge Planning Goal: Understanding discharge needs will improve Outcome: Progressing Problem: Fall Risk Goal: Ability to state ways to decrease the risk of falls will improve Outcome: Progressing Goal: Will remain free from falls Outcome: Progressing Goal: Will remain free from injury from falls Outcome: Progressing Problem: Disease Process Goal: Knowledge of disease or condition will improve Outcome: Progressing Goal: Seeking information regarding disease process or condition Outcome: Progressing Goal: Ability to make informed decisions regarding treatment will improve Outcome: Progressing Goal: Identification of resources available to assist in meeting health care needs will improve Outcome: Progressing Problem: Medication Regimen Goal: Knowledge of medication regimen will improve Outcome: Progressing Problem: Diagnostic Tests Goal: Knowledge of diagnostic tests will improve Outcome: Progressing Goal: Ability to verbalize follow-up procedures will improve Outcome: Progressing Problem: Treatment Goal: Expressions of comfortable level of knowledge will increase Outcome: Progressing Goal: Knowledge of prescribed therapeutic regimen will improve Outcome: Progressing Goal: Ability to make informed decisions regarding treatment will improve Outcome: Progressing Goal: Identification of resources available to assist in meeting health care needs will improve Outcome: Progressing Problem: Dietary Regimen Goal: Knowledge of prescribed regimen will improve Outcome: Progressing Goal: Ability to plan menus appropriate to prescribed diet will improve Outcome: Progressing Goal: Compliance with prescribed food intake will improve Outcome: Progressing Problem: Lack of [...] to Diabetes will improve Outcome: Progressing Problem: Lack of [...] functionality and self care Outcome: Progressing Problem: Cardiovascular Goal: Maintains optimal cardiac output and hemodynamic stability Outcome: Progressing Goal: Absence of cardiac dysrhythmias or at baseline Outcome: Progressing Goals: Clinical Goals for the Shift: safety, comfort, vss, glucose mgmt, pain Summary: total nurse care provided * Plan of Care - Alessandra Cervantes DANIELLE - 10/10/2023 5:50 PM CDT Problem: Discharge Planning Goal: Understanding discharge needs will improve Outcome: Progressing Problem: Fall Risk Goal: Ability to state ways to decrease the risk of falls will improve Outcome: Progressing Goal: Will remain free from falls Outcome: Progressing Goal: Will remain free from injury from falls Outcome: Progressing Problem: Disease Process Goal: Knowledge of disease or condition will improve Outcome: Progressing Goal: Seeking information regarding disease process or condition Outcome: Progressing Goal: Ability to make informed decisions regarding treatment will improve Outcome: Progressing Goal: Identification of resources available to assist in meeting health care needs will improve Outcome: Progressing Problem: Medication Regimen Goal: Knowledge of medication regimen will improve Outcome: Progressing Problem: Diagnostic Tests Goal: Knowledge of diagnostic tests will improve Outcome: Progressing Goal: Ability to verbalize follow-up procedures will improve Outcome: Progressing Problem: Treatment Goal: Expressions of comfortable level of knowledge will increase Outcome: Progressing Goal: Knowledge of prescribed therapeutic regimen will improve Outcome: Progressing Goal: Ability to make informed decisions regarding treatment will improve Outcome: Progressing Goal: Identification of resources available to assist in meeting health care needs will improve Outcome: Progressing Problem: Dietary Regimen Goal: Knowledge of prescribed regimen will improve Outcome: Progressing Goal: Ability to plan menus appropriate to prescribed diet will improve Outcome: Progressing Goal: Compliance with prescribed food intake will improve Outcome: Progressing Problem: Lack of [...] to Diabetes will improve Outcome: Progressing Problem: Lack of [...] functionality and self care Outcome: Progressing Problem: Cardiovascular Goal: Maintains optimal cardiac output and hemodynamic stability Outcome: Progressing Goal: Absence of cardiac dysrhythmias or at baseline Outcome: Progressing Goals: Clinical Goals for the Shift: pain control, stable vitals, bs monitoring Summary: total nurse care provided * Plan of Care - Melania Preciado RN - 10/09/2023 11:07 PM CDT Problem: Discharge Planning Goal: Understanding discharge needs will improve Outcome: Progressing Problem: Fall Risk Goal: Ability to state ways to decrease the risk of falls will improve Outcome: Progressing Goal: Will remain free from falls Outcome: Progressing Goal: Will remain free from injury from falls Outcome: Progressing Problem: Disease Process Goal: Knowledge of disease or condition will improve Outcome: Progressing Goal: Seeking information regarding disease process or condition Outcome: Progressing Goal: Ability to make informed decisions regarding treatment will improve Outcome: Progressing Problem: Medication Regimen Goal: Knowledge of medication regimen will improve Outcome: Progressing Goals: Clinical Goals for the Shift: pain control, stable vitals, bs monitoring Summary: patient plesantly confused with a sitter for elopement,achs,meds given * Plan of Care - Deborah Celeste RN - 10/09/2023 4:34 PM CDT Goals: Clinical Goals for the Shift: pain control, stable vitals, bs monitoring Problem: Discharge Planning Goal: Understanding discharge needs will improve Outcome: Progressing Problem: Fall Risk Goal: Ability to state ways to decrease the risk of falls will improve Outcome: Progressing Goal: Will remain free from falls Outcome: Progressing Goal: Will remain free from injury from falls Outcome: Progressing Problem: Disease Process Goal: Knowledge of disease or condition will improve Outcome: Progressing Goal: Seeking information regarding disease process or condition Outcome: Progressing Goal: Ability to make informed decisions regarding treatment will improve Outcome: Progressing Goal: Identification of resources available to assist in meeting health care needs will improve Outcome: Progressing Problem: Medication Regimen Goal: Knowledge of medication regimen will improve Outcome: Progressing Problem: Diagnostic Tests Goal: Knowledge of diagnostic tests will improve Outcome: Progressing Goal: Ability to verbalize follow-up procedures will improve Outcome: Progressing Problem: Treatment Goal: Expressions of comfortable level of knowledge will increase Outcome: Progressing Goal: Knowledge of prescribed therapeutic regimen will improve Outcome: Progressing Goal: Ability to make informed decisions regarding treatment will improve Outcome: Progressing Goal: Identification of resources available to assist in meeting health care needs will improve Outcome: Progressing Problem: Dietary Regimen Goal: Knowledge of prescribed regimen will improve Outcome: Progressing Goal: Ability to plan menus appropriate to prescribed diet will improve Outcome: Progressing Goal: Compliance with prescribed food intake will improve Outcome: Progressing Problem: Lack of [...] to Diabetes will improve Outcome: Progressing Problem: Lack of [...] functionality and self care Outcome: Progressing Problem: Cardiovascular Goal: Maintains optimal cardiac output and hemodynamic stability Outcome: Progressing Goal: Absence of cardiac dysrhythmias or at baseline Outcome: Progressing * Plan of Court Bernstein RN - 10/09/2023 5:17 AM CDT Goals: Clinical Goals for the Shift: pain control, stable VS/blood sugars, monitor labs/telemetry, free from signs of infection/increased swelling, safety/comfort Problem: Discharge Planning Goal: Understanding discharge needs will improve Outcome: Ongoing Problem: Fall Risk Goal: Ability to state ways to decrease the risk of falls will improve Outcome: Ongoing Goal: Will remain free from falls Outcome: Ongoing Goal: Will remain free from injury from falls Outcome: Ongoing Problem: Disease Process Goal: Knowledge of disease or condition will improve Outcome: Ongoing Goal: Seeking information regarding disease process or condition Outcome: Ongoing Goal: Ability to make informed decisions regarding treatment will improve Outcome: Ongoing Goal: Identification of resources available to assist in meeting health care needs will improve Outcome: Ongoing Problem: Medication Regimen Goal: Knowledge of medication regimen will improve Outcome: Ongoing Problem: Diagnostic Tests Goal: Knowledge of diagnostic tests will improve Outcome: Ongoing Goal: Ability to verbalize follow-up procedures will improve Outcome: Ongoing Problem: Treatment Goal: Expressions of comfortable level of knowledge will increase Outcome: Ongoing Goal: Knowledge of prescribed therapeutic regimen will improve Outcome: Ongoing Goal: Ability to make informed decisions regarding treatment will improve Outcome: Ongoing Goal: Identification of resources available to assist in meeting health care needs will improve Outcome: Ongoing Problem: Dietary Regimen Goal: Knowledge of prescribed regimen will improve Outcome: Ongoing Goal: Ability to plan menus appropriate to prescribed diet will improve Outcome: Ongoing Goal: Compliance with prescribed food intake will improve Outcome: Ongoing Problem: Lack of [...] to Diabetes will improve Outcome: Ongoing Problem: Lack of [...] or improved neurological status Outcome: Ongoing Goal: Achieves maximal functionality and self care Outcome: Ongoing Problem: Cardiovascular Goal: Maintains optimal cardiac output and hemodynamic stability Outcome: Ongoing Goal: Absence of cardiac dysrhythmias or at baseline Outcome: Ongoing * Plan of Care - Nadege Sabillon RN - 10/08/2023 6:44 PM CDT Goals: Clinical Goals for the Shift: (safety, comfort, stable vitals and BG) Summary: patient alert and oriented x3 with some confusion. Respiration even and unlabored. Iv sitepatent and intact. No complaint of pain or discomfort noted during shift. Call light and water within reach of patient. Bed lock and low. Bed alarm present and activated. Problem: Discharge Planning Goal: Understanding discharge needs will improve Outcome: Progressing Problem: Fall Risk Goal: Ability to state ways to decrease the risk of falls will improve Outcome: Progressing Goal: Will remain free from falls Outcome: Progressing Goal: Will remain free from injury from falls Outcome: Progressing Problem: Disease Process Goal: Knowledge of disease or condition will improve Outcome: Progressing Goal: Seeking information regarding disease process or condition Outcome: Progressing Goal: Ability to make informed decisions regarding treatment will improve Outcome: Progressing Goal: Identification of resources available to assist in meeting health care needs will improve Outcome: Progressing Problem: Medication Regimen Goal: Knowledge of medication regimen will improve Outcome: Progressing Problem: Diagnostic Tests Goal: Knowledge of diagnostic tests will improve Outcome: Progressing Goal: Ability to verbalize follow-up procedures will improve Outcome: Progressing Problem: Treatment Goal: Expressions of comfortable level of knowledge will increase Outcome: Progressing Goal: Knowledge of prescribed therapeutic regimen will improve Outcome: Progressing Goal: Ability to make informed decisions regarding treatment will improve Outcome: Progressing Goal: Identification of resources available to assist in meeting health care needs will improve Outcome: Progressing Problem: Dietary Regimen Goal: Knowledge of prescribed regimen will improve Outcome: Progressing Goal: Ability to plan menus appropriate to prescribed diet will improve Outcome: Progressing Goal: Compliance with prescribed food intake will improve Outcome: Progressing Problem: Lack of [...] related to Diabetes will improve Outcome: Progressing * Initial Assessments - Carolin Herr RN - 10/08/2023 4:10 PM CDT CM Initial Assessment Interview Note Information Obtained From: Adult child Name: Areli [phone] (10/08/23 1608) Admission Source: ED Impression: Leg Swelling Plan Includes: c/s Cardio, IV lasix, labs Primary Source of Transportation: patient daughter provides her transportation Does the patient need discharge transport arranged?: No (10/08/23 1608) Health Insurance Coverage: Medicare A and B/ IDPA Prescription Coverage: yes Pharmacy: [id number] - [place], [place] - [address] [place] [id number] [facility] [place], [place] - 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 Home care service name and 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: [employer] 7 days a week unknow hours Outpatient Services: No Durable Medical Equipment: Home Modification Assessment (railes in bathroom), Shower chair, Walker (wheeled) Living Arrangements: Children, Family members Type of Residence: Private residence Steps in home?: Yes, Outside of home Number of steps outside: 1 steps Medication management: Independent (10/08/23 1608) SDOH: Transportation: In the past 12 months, has lack of transportation kept you from medical appointments or from getting medications?: No In the past 12 months, has lack of transportation kept you from meetings, work, or from getting things needed for daily living?: No (10/08/23 1610) Financial Resource: How hard is it for you to pay for the very basics like food, housing, medical care, and heating?: Not very hard (10/08/23 1610) Housing: In the last 12 months, was there a time when you were not able to pay the mortgage or rent on time?: No In the last 12 months, how many places have you lived?: 1 In the last 12 months, was there a time when you did not have a steady place to sleep or slept in ashelter (including now)?: No (10/08/231609) Utilities: No, (10/08/231609) Social Connections: In a typical week, how many times do you talk on the phone with family, friends, or neighbors?: More than three times a week How often do you get together with friends or relatives?: More than three times a week How often do you attend hinduism or scientology services?: 1 to 4 times per year Do you belong to any clubs or organizations such as hinduism groups, unions, fraternal or athletic groups, or school groups?: No How often do you attend meetings of the clubs or organizations you belong to?: Never Are you , , , , never , or living with a partner?: (10/08/231609) Food Insecurity: Within the past 12 months, you worried that your food would run out before you got the money to buymore.: Never true Within the past 12 months, the food you bought just didn't last and you didn't have money to get more.: Never true (10/08/231609) Alcohol Use: PHQ Screening Potential discharge needs include: Home Health: None (10/08/231607) Dialysis: N/A Behavioral Health Services: Behavioral Health Services: No (10/08/231607) Patient expects to be Discharged to: Private residence, (10/08/231607) Additional Information: CM met called patient daughter Areli to discuss plan of care, anticipateddischarge date, and goals for discharge. Demographics verified via face sheet. Patient lives at home with her daughter Areli who is named as her child care center assistant director and grand daughter. There is 1 LIANA the house. Patient receives SSD. Her family assist her will all of her ADL's and her daughter Areli isher foster care social worker 7 days a week. Patient has rails in the bathroom, a shower chair and walker. Patient uses [facility] and is able to afford her medications. Patient daughter provides her transportation. Goal is to return home and patient is supposed to start adult day care on 10/11. Patient will have transportation home. SDOH complete. Patient has a f/u with her PCP on 10/14. CM will continue to follow and assist with discharge planning as needed. Discharge disposition: 01 - Home Patient's Identified Problem/Goal Problem: Ensure acute medical [...] community resources. Plan includes: 1. Collaboration with patient, MD, direct care nurse, Stereo Map Plotter Operator, and other members of the health care team to assure needed interventions completed. 2. Return patient to optimal level of self-care post discharge. 3. Shredder Tender Peat will follow for Discharge Planning - interventions as needed 4. Anticipated level of care at discharge 5. Planned Discharge Disposition Carolin Herr RN Case Manager [phone] * Plan of Care - Abram Hampton - 10/08/2023 5:32 AM CDT Goals: Clinical Goals for the Shift: (safety, comfort, stable vitals and BG) Summary: Problem: Discharge Planning Goal: Understanding discharge needs will improve Outcome: Progressing Flowsheets (Taken 10/08/2023 05) Understanding of discharge needs will improve: Identify discharge learning needs (meds, wound care, etc.) Identify discharge barriers Problem: Fall Risk Goal: Ability to state ways to decrease the risk of falls will improve Outcome: Progressing Flowsheets (Taken 10/08/2023 0532) Ability to state ways to decrease the risk of falls will improve: Teach fall prevention measures Goal: Will remain free from falls Outcome: Progressing Flowsheets (Taken 10/08/2023 0532) Will remain free from falls: Assess risk factors for falls Implement fall prevention measures Goal: Will remain free from injury from falls Outcome: Progressing Flowsheets (Taken 10/08/2023 0532) Will remain free from injury from falls: Provide safe environment for conduction of activities of daily living in hospital environment Problem: Treatment Goal: Expressions of comfortable level of knowledge will increase Outcome: Progressing Flowsheets (Taken 10/08/2023 0532) Expressions of comfortable level of knowledge will increase: Evaluate comfort level with information provided about therapeutic regimen Goal: Knowledge of prescribed therapeutic regimen will improve Outcome: Progressing Flowsheets (Taken 10/08/2023 1857) Knowledge of the prescribed therapeutic regimen will improve: Assess knowledge level of therapeutic regimen Use teach-back technique to assess learning * Plan of Care - Nadege Sabillon RN - 10/07/2023 4:52 PM CDT Goals: maintain safety and comfort. Monitor vs, labs and fluid intake. Summary: patient alert and oriented x3. Respiration even and unlabored. Iv site patent and intact. No complaint of pain or discomfort noted during shift. Call light and water within reach of patient.Bed lock and low. Bed alarm present and activated. Problem: Discharge Planning Goal: Understanding discharge needs will improve Outcome: Progressing Problem: Fall Risk Goal: Ability to state ways to decrease the risk of falls will improve Outcome: Progressing Goal: Will remain free from falls Outcome: Progressing Goal: Will remain free from injury from falls Outcome: Progressing Problem: Disease Process Goal: Knowledge of disease or condition will improve Outcome: Progressing Goal: Seeking information regarding disease process or condition Outcome: Progressing Goal: Ability to make informed decisions regarding treatment will improve Outcome: Progressing Goal: Identification of resources available to assist in meeting health care needs will improve Outcome: Progressing Problem: Medication Regimen Goal: Knowledge of medication regimen will improve Outcome: Progressing Problem: Diagnostic Tests Goal: Knowledge of diagnostic tests will improve Outcome: Progressing Goal: Ability to verbalize follow-up procedures will improve Outcome: Progressing Problem: Treatment Goal: Expressions of comfortable level of knowledge will increase Outcome: Progressing Goal: Knowledge of prescribed therapeutic regimen will improve Outcome: Progressing Goal: Ability to make informed decisions regarding treatment will improve Outcome: Progressing Goal: Identification of resources available to assist in meeting health care needs will improve Outcome: Progressing Problem: Dietary Regimen Goal: Knowledge of prescribed regimen will improve Outcome: Progressing Goal: Ability to plan menus appropriate to prescribed diet will improve Outcome: Progressing Goal: Compliance with prescribed food intake will improve Outcome: Progressing Problem: Lack of [...] related to Diabetes will improve Outcome: Progressing * ED Re-evaluation Note - Flash Guillaume-Flash Guzman MD - 10/07/2023 1:00 PM CDT ED Re-evaluation Care assumed from Dr Montiel. 72F with worsening renal failure and LE edema. No CP or SOB. Previously on diuretic but had been discontinued a year ago. PCP requesting admission. Pending cardiology and nephrology eval. Pt seen by cardiology, recommended re-initiating diuresis. Seen by nephrology, recommended admission for IV diuresis Case d/w JARAD Mei for admission ED Course as of 10/07/23 1332 Time: 10/052 Comment: Slightly worsening creatinine function. Will try to get a hold of patient's PCP By: Trisha Montiel MD Time: 10/05 6541 Comment: Spoke with Dr. Spivey covering for Dr. Corcoran. Recommends admission for cards/nephr eval By: Trisha Montiel MD Time: 10/05 2012 Comment: I discussed the case with Kanika from cards. The plan is to have nephro see patient in the AM prior to starting patient on diuretics at this time By: Trisha Montiel MD Time: 10/06 0018 Comment: Spoke with other cards group (brittney) as seen by them. Same recs By: Trisha Montiel MD Time: 10/06 0108 Comment: Discussed case with Dr. Hernandez. Does not believe patient requires admission. Will discussagain with cards By: Trisha Montiel MD Time: 10/06 0203 Comment: Spoke with Brittney with cards. Will add on trop. Worse case will have patient stay in the ED til morning for nephro and cards eval By: Trisha Montiel MD Time: 10/06 0603 Comment: Sign out to Dr. Guillaume: D/c pending cards/nephro eval By: Trisha Montiel MD 1. Leg swelling 2. Acute renal failure superimposed on chronic kidney disease, unspecified acute renal failure type, unspecified CKD stage (HCC) Alejandro Guillaume MD 10/07/23 6863 documented in this encounter Plan of Treatment Upcoming Encounters Date Type Department Care Team (Latest Contact Info) Description 07/13/2024 9:00 AM INSTALLATION SUPERVISOR Hospital Encounter [facility] [address] [place] [address] Jaya Grier MD [address] [facility] [address] [place] [address] 07/13/2024 9:00 AM INSTALLATION SUPERVISOR - 07/13/2024 9:30 AM INSTALLATION SUPERVISOR Surgery [facility] [address] [place] [address] Jaya Grier MD [address] [facility] [address] [place] [address] ESOPHAGOGASTRODUODENOSCOPY Scheduled Procedures Name Priority Associated Diagnoses Date/Ti me ESOPHAGOGASTRODUODENOSCOPY Anemia, unspecified type Gastritis without bleeding, unspecified chronicity, unspecified gastritis type 07/13/2024 9:00 AM INSTALLATION SUPERVISOR COLONOSCOPY Iron deficiency anemia due to chronic blood loss Scheduled Referrals Name Type Priority Associated Diagnoses Orde r Schedule Ambulatory referral to Nutrition Services Outpatient Referral Routine Acute kidney injury superimposed on CKD (HCC) Expected: 01/07/2024 (Approximate), Expires: 04/08/2025 documented as of this encounter Procedures Procedure Name Priority Date/Time Associated Diagnosis Comments POCT GLUCOSE DEVICE Routine 10/22/2023 1 1:35 AM CDT EGFR Routine 10/22/2023 6:28 AM CDT DIFFERENTIAL AUTO Routine 10/22/2023 6:2 8 AM CDT CBC WITH AUTO DIFFERENTIAL Routine 10/22/2023 6:28 AM CDT RENAL FUNCTION PANEL Routine 10/22/2023 6:28 AM CDT POCT GLUCOSE DEVICE Routine 10/22/2023 2 :11 AM CDT POCT GLUCOSE DEVICE Routine 10/21/2023 9 :06 PM CDT POCT GLUCOSE DEVICE Routine 10/21/2023 5 :41 PM CDT POCT GLUCOSE DEVICE Routine 10/21/2023 1 2:10 PM CDT POCT GLUCOSE DEVICE Routine 10/21/2023 7 :33 AM CDT POCT GLUCOSE DEVICE Routine 10/21/2023 2 :26 AM CDT POCT GLUCOSE DEVICE Routine 10/20/2023 7 :56 PM CDT POCT GLUCOSE DEVICE Routine 10/20/2023 5 :30 PM CDT POCT GLUCOSE DEVICE Routine 10/20/2023 1 2:29 PM CDT POCT GLUCOSE DEVICE Routine 10/20/2023 7 :43 AM CDT EGFR Routine 10/20/2023 7:10 AM CDT RENAL FUNCTION PANEL Routine 10/20/2023 7:10 AM CDT POCT GLUCOSE DEVICE Routine 10/20/2023 1 :49 AM CDT POCT GLUCOSE DEVICE Routine 10/19/2023 7 :59 PM CDT POCT GLUCOSE DEVICE Routine 10/19/2023 5 :01 PM CDT POCT GLUCOSE DEVICE Routine 10/19/2023 1 0:07 AM CDT CBC WITHOUT DIFFERENTIAL Routine 10/19/2023 9:20 AM CDT POCT GLUCOSE DEVICE Routine 10/19/2023 7 :50 AM CDT EGFR Routine 10/19/2023 7:23 AM CDT RENAL FUNCTION PANEL Routine 10/19/2023 7:23 AM CDT POCT GLUCOSE DEVICE Routine 10/19/2023 2 :23 AM CDT HEPATITIS B SURFACE ANTIBODY (IMMUNE STATUS) Routine 10/19/2023 1:04 AM CDT POCT GLUCOSE DEVICE Routine 10/18/2023 8 :26 PM CDT POCT GLUCOSE DEVICE Routine 10/18/2023 5 :19 PM CDT POCT GLUCOSE DEVICE Routine 10/18/2023 1 2:38 PM CDT POCT GLUCOSE DEVICE Routine 10/18/2023 7 :37 AM CDT EGFR Routine 10/18/2023 6:53 AM CDT RENAL FUNCTION PANEL Routine 10/18/2023 6:53 AM CDT POCT GLUCOSE DEVICE Routine 10/18/2023 2 :08 AM CDT POCT GLUCOSE DEVICE Routine 10/17/2023 9 :24 PM CDT POCT GLUCOSE DEVICE Routine 10/17/2023 5 :42 PM CDT POCT GLUCOSE DEVICE Routine 10/17/2023 1 :41 PM CDT CBC WITHOUT DIFFERENTIAL STAT 10/17/2023 9:30 AM CDT EGFR Routine 10/17/2023 8:57 AM CDT RENAL FUNCTION PANEL Routine 10/17/2023 8:57 AM CDT POCT GLUCOSE DEVICE Routine 10/17/2023 6 :43 AM CDT POCT GLUCOSE DEVICE Routine 10/17/2023 2 :43 AM CDT POCT GLUCOSE DEVICE Routine 10/16/2023 8 :41 PM CDT POCT GLUCOSE DEVICE Routine 10/16/2023 5 :35 PM CDT POCT GLUCOSE DEVICE Routine 10/16/2023 1 :19 PM CDT POCT GLUCOSE DEVICE Routine 10/16/2023 8 :03 AM CDT EGFR Routine 10/16/2023 6:54 AM CDT RENAL FUNCTION PANEL Routine 10/16/2023 6:54 AM CDT POCT GLUCOSE DEVICE Routine 10/16/2023 2 :22 AM CDT POCT GLUCOSE DEVICE Routine 10/15/2023 1 0:54 PM CDT POCT GLUCOSE DEVICE Routine 10/15/2023 5 :28 PM CDT POCT GLUCOSE DEVICE Routine 10/15/2023 1 2:55 PM CDT TUNNELED LINE PLACEMENT > 5 YEARS IP Routine 10/15/2023 9:25 AM CDT EGFR Routine 10/15/2023 6:50 AM CDT HEPATITIS PANEL, ACUTE Routine 10/15/2023 6:50 AM CDT HEPATITIS B SURFACE ANTIBODY (IMMUNE STATUS) Routine 10/15/2023 6:50 AM CDT APTT STAT 10/15/2023 6:50 AM CDT PROTIME-INR STAT 10/15/2023 6:50 AM CDT RENAL FUNCTION PANEL Routine 10/15/2023 6:50 AM CDT POCT GLUCOSE DEVICE Routine 10/15/2023 2 :33 AM CDT POCT GLUCOSE DEVICE Routine 10/14/2023 1 0:40 PM CDT POCT GLUCOSE DEVICE Routine 10/14/2023 5 :31 PM CDT POCT GLUCOSE DEVICE Routine 10/14/2023 1 2:54 PM CDT POCT GLUCOSE DEVICE Routine 10/14/2023 7 :47 AM CDT EGFR Routine 10/14/2023 6:13 AM CDT RENAL FUNCTION PANEL Routine 10/14/2023 6:13 AM CDT POCT GLUCOSE DEVICE Routine 10/14/2023 2 :07 AM CDT POCT GLUCOSE DEVICE Routine 10/13/2023 1 0:49 PM CDT POCT GLUCOSE DEVICE Routine 10/13/2023 6 :19 PM CDT POCT GLUCOSE DEVICE Routine 10/13/2023 1 2:31 PM CDT POCT GLUCOSE DEVICE Routine 10/13/2023 7 :42 AM CDT EGFR Routine 10/13/2023 6:20 AM CDT RENAL FUNCTION PANEL Routine 10/13/2023 6:20 AM CDT POCT GLUCOSE DEVICE Routine 10/12/2023 1 1:40 PM CDT POCT GLUCOSE DEVICE Routine 10/12/2023 8 :46 PM CDT POCT GLUCOSE DEVICE Routine 10/12/2023 5 :14 PM CDT POCT GLUCOSE DEVICE Routine 10/12/2023 1 2:20 PM CDT POCT GLUCOSE DEVICE Routine 10/12/2023 8 :15 AM CDT EGFR Routine 10/12/2023 6:56 AM CDT RENAL FUNCTION PANEL Routine 10/12/2023 6:56 AM CDT POCT GLUCOSE DEVICE Routine 10/12/2023 2 :44 AM CDT POCT GLUCOSE DEVICE Routine 10/11/2023 9 :58 PM CDT POCT GLUCOSE DEVICE Routine 10/11/2023 5 :04 PM CDT POCT GLUCOSE DEVICE Routine 10/11/2023 1 2:[address] HEAD WO CONTRAST ED Urgent/IP Urgent 10/11/2023 10:34 AM CDT POCT GLUCOSE DEVICE Routine 10/11/2023 7 :20 AM CDT EGFR Routine 10/11/2023 4:43 AM CDT RENAL FUNCTION PANEL Routine 10/11/2023 4:43 AM CDT POCT GLUCOSE DEVICE Routine 10/11/2023 1 :18 AM CDT POCT GLUCOSE DEVICE Routine 10/10/2023 7 :49 PM CDT DIFFERENTIAL AUTO Routine 10/10/2023 6:0 8 PM CDT CBC WITH AUTO DIFFERENTIAL Routine 10/10/2023 6:08 PM CDT POCT GLUCOSE DEVICE Routine 10/10/2023 5 :32 PM CDT XR CHEST 1 VIEW ED Urgent/IP Urgent 10/10/2023 5:10 PM CDT URINALYSIS AND REFLEX TO MICROSCOPIC AND CULTURE Routine 10/10/2023 3:00 PM CDT URINALYSIS, MICROSCOPIC ONLY Routine 10/10/2023 3:00 PM CDT POCT GLUCOSE DEVICE Routine 10/10/2023 1 2:30 PM CDT POCT GLUCOSE DEVICE Routine 10/10/2023 7 :44 AM CDT EGFR Routine 10/10/2023 5:01 AM CDT RENAL FUNCTION PANEL Routine 10/10/2023 5:01 AM CDT POCT GLUCOSE DEVICE Routine 10/10/2023 2 :17 AM CDT POCT GLUCOSE DEVICE Routine 10/09/2023 8 :15 PM CDT POCT GLUCOSE DEVICE Routine 10/09/2023 6 :04 PM CDT POCT GLUCOSE DEVICE Routine 10/09/2023 1 2:39 PM CDT POCT GLUCOSE DEVICE Routine 10/09/2023 7 :44 AM CDT EGFR Routine 10/09/2023 7:14 AM CDT RENAL FUNCTION PANEL Routine 10/09/2023 7:14 AM CDT POCT GLUCOSE DEVICE Routine 10/09/2023 1 :48 AM CDT POCT GLUCOSE DEVICE Routine 10/08/2023 8 :39 PM CDT POCT GLUCOSE DEVICE Routine 10/08/2023 3 :37 PM CDT EGFR Routine 10/08/2023 1:36 PM CDT BASIC METABOLIC PANEL Routine 10/08/2023 1:36 PM CDT EGFR Routine 10/08/2023 11:55 AM CDT DIFFERENTIAL AUTO Routine 10/08/2023 11: 55 AM CDT CBC WITH AUTO DIFFERENTIAL Routine 10/08/2023 11:55 AM CDT PHOSPHORUS Routine 10/08/2023 11:55 AM CDT MAGNESIUM Routine 10/08/2023 11:55 AM CDT HEMOGLOBIN A1C Routine 10/08/2023 11:55 AM CDT CREATINE KINASE (CK), TOTAL Routine 10/08/2023 11:55 AM CDT BILIRUBIN, DIRECT Routine 10/08/2023 11: 55 AM CDT COMPREHENSIVE METABOLIC PANEL Routine 10/08/2023 11:55 AM CDT POCT GLUCOSE DEVICE Routine 10/08/2023 8 :09 AM CDT POCT GLUCOSE DEVICE Routine 10/08/2023 5 :48 AM CDT POCT GLUCOSE DEVICE Routine 10/08/2023 2 :40 AM CDT POCT GLUCOSE DEVICE Routine 10/07/2023 8 :28 PM CDT POCT GLUCOSE DEVICE Routine 10/07/2023 5 :20 PM CDT POCT GLUCOSE DEVICE Routine 10/07/2023 9 :17 AM CDT TROPONIN T HIGH-SENSITIVITY 2-HOUR Timed 10/07/2023 4:39 AM CDT ECG 12-LEAD STAT 10/07/2023 2:14 AM CDT TROPONIN T HIGH-SENSITIVITY SERIES (BASELINE, 2HR, 4HR, 6HR) STAT 10/07/2023 1:59 AM CDT EGFR STAT 10/06/2023 10:25 PM CDT DIFFERENTIAL AUTO STAT 10/06/2023 10: 25 PM CDT PRO B-TYPE NATRIURETIC PEPTIDE STAT 10/06/2023 10:25 PM CDT CBC WITH AUTO DIFFERENTIAL STAT 10/06/2023 10:25 PM CDT COMPREHENSIVE METABOLIC PANEL STAT 10/06/2023 10:25 PM CDT documented in this encounter Results * (ABNORMAL) POCT glucose (10/22/2023 11:35 AM CDT) Glucose, POC 263(H) 70 - 199 mg/dL Blood 10/22/2023 11:3 5 AM CDT 10/22/2023 11:35 AM CDT Zhang Mendez MD LAB POCT ORDERABLES - DEVICE Final Result [facility]IL[facility] [address] [place] [address] * (ABNORMAL) eGFR (10/22/2023 6:28 AM CDT) eGFR 9(L) >=60 mL/min/1. 73 [...] interpretive data was last reviewed 2021. Blood 10/22/2023 6:28 AM CDT 10/22/2023 6:43 AM CDT us Rosa Jade CLINICAL NURSE LEADER LAB BLOOD ORDERABLES Final Res ult [facility] [id number] [place] [address] * Differential, auto (10/22/2023 6:28 AM CDT) Neutrophil abs 4.1 1.5 - 6.5 K/cumm Imm gran abs 0.0 0.0 - 0.1 K/cumm [facility] Lymphocyte abs 2.8 0.8 - 3.3 K/cumm [facility] Monocyte abs 0.7 0.2 - 0.8 K/cumm [facility] Eosinophil abs 0.2 0.0 - 0.5 K/cumm [facility] Basophil abs 0.0 0.0 - 0.1 K/cumm [facility] Neutrophil pct 52.3 % [facility] Comment: Interpretive Data Percent cell count reference ranges are not reported, since discordance with absolute values may lead to misinterpretation of CBC data. Current Interpretive Data was last revised on 2017. Imm gran pct 0.4 % [facility] Comment: Interpretive Data Percent cell count reference ranges are not reported, since discordance with absolute values may lead to misinterpretation of CBC data. Current Interpretive Data was last revised on 2017. Lymphocyte pct 36.1 % [facility] Comment: Interpretive Data Percent cell count reference ranges are not reported, since discordance with absolute values may lead to misinterpretation of CBC data. Current Interpretive Data was last revised on 2017. Monocyte pct 8.4 % [facility] Comment: Interpretive Data Percent cell count reference ranges are not reported, since discordance with absolute values may lead to misinterpretation of CBC data. Current Interpretive Data was last revised on 2017. Eosinophil pct 2.4 % [facility] Comment: Interpretive Data Percent cell count reference ranges are not reported, since discordance with absolute values may lead to misinterpretation of CBC data. Current Interpretive Data was last revised on 2017. Basophil pct 0.4 % [facility] Comment: Interpretive Data Percent cell count reference ranges are not reported, since discordance with absolute values may lead to misinterpretation of CBC data. Current Interpretive Data was last revised on 2017. Blood 10/22/2023 6:28 AM CDT 10/22/2023 6:42 AM CDT Zhang Mendez MD LAB BLOOD ORDERABLES F inal Result [facility] [address] Department [place] [address] * (ABNORMAL) CBC with auto differential (10/22/2023 6:28 AM CDT) WBC 7.8 3.8 - 9.9 K/cumm Hgb 8.0(L) 11.9 - 15.5 g/dL [facility] Hct 25.2(L) 35.6 - 45.5 % [facility] Plt 206 150 - 400 K/cumm [facility] MPV 10.9 9.1 - 12.3 fL [facility] RBC 2.63(L) 3.90 - 5.20 M/cumm [facility] MCV 95.8 81.3 - 96.4 fL [facility] MCH 30.4 27.1 - 33.3 pg [facility] MCHC 31.7(L) 32.3 - 35.7 g/dL [facility] RDW CV 13.4 11.1 - 14.9 % [facility] RDW SD 46.8 35.7 - 48.1 fL [facility] NRBC abs 0.00 0.00 - 0.01 K/cumm [facility] Blood 10/22/2023 6:28 AM CDT 10/22/2023 6:42 AM CDT Zhang Mendez MD LAB BLOOD ORDERABLES F inal Result [facility] [address] [place] [address] * (ABNORMAL) Renal function panel (10/22/2023 6:28 AM CDT) Sodium 136 135 - 145 mmol/L Potassium, pl 4.5 3.3 - 4.9 mmol/L [facility] Chloride 102 97 - 110 mmol/L [facility] CO2 22 22 - 32 mmol/L [facility] Anion gap 12 2 - 15 mmol/L [facility] BUN 60(H) 6 - 25 mg/dL [facility] Creatinine 4.69(H) 0.60 - 1.10 mg/dL [facility] Glucose 190 70 - 199 mg/dL [facility] Comment: Interpretive Data Fasting glucose >/= 126 [...] interpretive data was last revised 2022. Calcium 8.9 8.5 - 10.3 mg/dL [facility] Phosphorus, pl 4.3 2.3 - 4.5 mg/dL [facility] Albumin 2.8(L) 3.5 - 5.0 g/dL [facility] Blood 10/22/2023 6:28 AM CDT 10/22/2023 6:43 AM CDT Rosa Jade NP LAB BLOOD ORDERABLES Final Res ult Performing Organization Address [facility] Co de Phone Number NILSA MCDONNELL [phone] [facility] [place] [address] * (ABNORMAL) POCT glucose (10/22/2023 2:11 AM CDT) Glucose, POC 236(H) 70 - 199 mg/dL Blood 10/22/2023 2:11 AM CDT 10/22/2023 2:11 AM CDT Zhang Mendez MD LAB POCT ORDERABLES - DEVICE Final Result Performing Organization Address [facility] de Phone Number NILSA MCDONNELL [phone] Department [place] [address] * POCT glucose (10/21/2023 9:06 PM CDT) Glucose, POC 197 70 - 199 mg/dL Blood 10/21/2023 9:06 PM CDT 10/21/2023 9:06 PM CDT Zhang Mendez MD LAB POCT ORDERABLES - DEVICE Final Result Performing Organization Address [facility] Co de Phone Number NILSA MCDONNELL [phone] [facility] [place] [address] * POCT glucose (10/21/2023 5:41 PM CDT) Glucose, POC 116 70 - 199 mg/dL Blood 10/21/2023 5:41 PM CDT 10/21/2023 5:41 PM CDT Zhang Mendez MD LAB POCT ORDERABLES - DEVICE Final Result Performing Organization Address City/[facility]/ZIP Co de Phone Number NILSA MCDONNELL [phone] [facility] [place] [address] * POCT glucose (10/21/2023 12:10 PM CDT) Glucose, POC 108 70 - 199 mg/dL Blood 10/21/2023 12:1 0 PM CDT 10/21/2023 12:10 PM CDT Zhang Mendez MD LAB POCT ORDERABLES - DEVICE Final Result Performing Organization Address [facility] Co de Phone Number NILSA MCDONNELL [phone] [place] [address] * POCT glucose (10/21/2023 7:33 AM CDT) Glucose, POC 117 70 - 199 mg/dL Blood 10/21/2023 7:33 AM CDT 10/21/2023 7:33 AM CDT Zhang Mendez MD LAB POCT ORDERABLES - DEVICE Final Result Performing Organization Address [facility] [facility] Co de Phone Number NILSA MCDONNELL [address] [address] [place] [address] * POCT glucose (10/21/2023 2:26 AM CDT) Glucose, POC 114 70 - 199 mg/dL Blood 10/21/2023 2:26 AM CDT 10/21/2023 2:26 AM CDT Gill Gamboa MD LAB POCT ORDERABLES - DEVICE Final Result Performing Organization Address City/[facility]/ZIP Co de Phone Number NILSA MCDONNELL [address] [address] [place] [address] * POCT glucose (10/20/2023 7:56 PM CDT) Glucose, POC 143 70 - 199 mg/dL Blood 10/20/2023 7:56 PM CDT 10/20/2023 7:56 PM CDT Gill Gamboa MD LAB POCT ORDERABLES - DEVICE Final Result Performing Organization Address [facility] de Phone Number NILSA [phone] [address] [facility] [place] [address] * POCT glucose (10/20/2023 5:30 PM CDT) Glucose, POC 156 70 - 199 mg/dL Blood 10/20/2023 5:30 PM CDT 10/20/2023 5:30 PM CDT Gill Gamboa MD LAB POCT ORDERABLES - DEVICE Final Result Performing Organization Address [facility] de Phone Number CARLOS ENRIQUEELLEN [phone] [address] [facility] [place] [address] * POCT glucose (10/20/2023 12:29 PM CDT) Glucose, POC 133 70 - 199 mg/dL Blood 10/20/2023 12:2 9 PM CDT 10/20/2023 12:29 PM CDT Gill Gamboa MD LAB POCT ORDERABLES - DEVICE Final Result Performing Organization Address [facility] de Phone Number NILSA [phone] [address] [facility] [place] [address] * POCT glucose (10/20/2023 7:43 AM CDT) Glucose, POC 101 70 - 199 mg/dL Blood 10/20/2023 7:43 AM CDT 10/20/2023 7:43 AM CDT Gill Gamboa MD LAB POCT ORDERABLES - DEVICE Final Result Performing Organization Address [facility] Co de Phone Number NILSA MCDONNELL [address] [place] [address] * (ABNORMAL) eGFR (10/20/2023 7:10 AM CDT) eGFR 15(L) >=60 mL/min/1. 73 [...] interpretive data was last reviewed 2021. Blood 10/20/2023 7:10 AM CDT 10/20/2023 8:08 AM CDT us Rosa Jade CLINICAL NURSE LEADER LAB BLOOD ORDERABLES Final Res ult Performing Organization Address [facility] Co de Phone Number NILSA MCDONNELL [phone] [address] Department [place], [place] [id number] * (ABNORMAL) Renal function panel (10/20/2023 7:10 AM CDT) Sodium 132(L) 135 - 145 mmol/L Potassium, pl 4.5 3.3 - 4.9 mmol/L [facility] Chloride 97 97 - 110 mmol/L [facility] CO2 28 22 - 32 mmol/L [facility] Anion gap 7 2 - 15 mmol/L [facility] BUN 30(H) 6 - 25 mg/dL [facility] Creatinine 3.14(H) 0.60 - 1.10 mg/dL [facility] Glucose 99 70 - 199 mg/dL [facility] Comment: [...] interpretive data was last revised 2022. Calcium 8.8 8.5 - 10.3 mg/dL [facility] Phosphorus, pl 3.5 2.3 - 4.5 mg/dL [facility] Albumin 2.8(L) 3.5 - 5.0 g/dL [facility] Blood 10/20/2023 7:10 AM CDT 10/20/2023 8:08 AM CDT Rosa Jade CLINICAL NURSE LEADER LAB BLOOD ORDERABLES Final Res ult [facility] [phone] [address] [place] [address] * POCT glucose (10/20/2023 1:49 AM CDT) Glucose, POC 125 70 - 199 mg/dL Blood 10/20/2023 1:49 AM CDT 10/20/2023 1:49 AM CDT Gill Gamboa MD LAB POCT ORDERABLES - DEVICE Final Result Performing Organization Address City/[facility]/ZIP Co de Phone Number NILSA MCDONNELL [address] [address] [facility] [place] [address] * (ABNORMAL) POCT glucose (10/19/2023 7:59 PM CDT) Glucose, POC 204(H) 70 - 199 mg/dL Blood 10/19/2023 7:59 PM CDT 10/19/2023 7:59 PM CDT Gill Gamboa MD LAB POCT ORDERABLES - DEVICE Final Result Performing Organization Address [facility] Co de Phone Number NILSA MCDONNELL [phone] [address] [facility] [place] [address] * (ABNORMAL) POCT glucose (10/19/2023 5:01 PM CDT) Glucose, POC 205(H) 70 - 199 mg/dL Blood 10/19/2023 5:01 PM CDT 10/19/2023 5:01 PM CDT Gill Gamboa MD LAB POCT ORDERABLES - DEVICE Final Result Performing Organization Address [facility] Co de Phone Number CARLOS ENRIQUEELLEN MCDONNELL [address] [address] [facility] [place] [address] * POCT glucose (10/19/2023 10:07 AM CDT) Glucose, POC 144 70 - 199 mg/dL Blood 10/19/2023 10:0 7 AM CDT 10/19/2023 10:07 AM CDT Zhang Mendez MD LAB POCT ORDERABLES - DEVICE Final Result Performing Organization Address City/[facility]/ZIP Co de Phone Number NILSA MCDONNELL [address] [address] Dial [facility][1] [place] [address] * (ABNORMAL) CBC without differential (10/19/2023 9:20 AM CDT) [facility] WBC 8.0 3.8 - 9.9 K/cumm Hgb 8.8(L) 11.9 - 15.5 g/dL [facility] Hct 27.9(L) 35.6 - 45.5 % [facility] Plt 259 150 - 400 K/cumm [facility] MPV 10.7 9.1 - 12.3 fL [facility] RBC 2.96(L) 3.90 - 5.20 M/cumm [facility] MCV 94.3 81.3 - 96.4 fL [facility] MCH 29.7 27.1 - 33.3 pg [facility] MCHC 31.5(L) 32.3 - 35.7 g/dL [facility] RDW CV 13.4 11.1 - 14.9 % [facility] RDW SD 46.5 35.7 - 48.1 fL [facility] NRBC abs 0.00 0.00 - 0.01 K/cumm [facility] Blood 10/19/2023 9:20 AM CDT 10/19/2023 9:23 AM CDT Jimbo Strauss MD LAB BLOOD ORDERABLES Final Resu lt Performing Organization Address City/[facility]/ZIP Co de Phone Number [employer] CLINICELLEN MCDONNELL [phone] [address] [place] [address] * POCT glucose (10/19/2023 7:50 AM CDT) [facility] Glucose, POC 101 70 - 199 mg/dL Blood 10/19/2023 7:50 AM CDT 10/19/2023 7:50 AM CDT Gill Gamboa MD LAB POCT ORDERABLES - DEVICE Final Result Performing Organization Address City/[facility]/ZIP Co de Phone Number [facility] [phone] [address] [place] [address] * (ABNORMAL) eGFR (10/19/2023 7:23 AM CDT) eGFR 11(L) >=60 mL/min/1. 73 [...] interpretive data was last reviewed 2021. Blood 10/19/2023 7:23 AM CDT 10/19/2023 7:40 AM CDT us Rosa Jade CLINICAL NURSE LEADER LAB BLOOD ORDERABLES Final Res ult [facility] [phone] [address] [place] [address] * (ABNORMAL) Renal function panel (10/19/2023 7:23 AM CDT) Sodium 138 135 - 145 mmol/L Potassium, pl 4.5 3.3 - 4.9 mmol/L [facility] Chloride 103 97 - 110 mmol/L [facility] CO2 27 22 - 32 mmol/L [facility] Anion gap 8 2 - 15 mmol/L [facility] BUN 48(H) 6 - 25 mg/dL [facility] Creatinine 4.08(H) 0.60 - 1.10 mg/dL [facility] Glucose 109 70 - 199 mg/dL [facility] Comment: Interpretive Data Fasting glucose >/= 126 [...] interpretive data was last revised 2022. Calcium 9.2 8.5 - 10.3 mg/dL [facility] Phosphorus, pl 4.5 2.3 - 4.5 mg/dL [facility] Albumin 3.0(L) 3.5 - 5.0 g/dL [facility] Blood 10/19/2023 7:23 AM CDT 10/19/2023 7:40 AM CDT Rosa Jade CLINICAL NURSE LEADER LAB BLOOD ORDERABLES Final Res ult Performing Organization Address [facility] Co de Phone Number NILSA MCDONNELL [phone] [address] [place], [place] [id number] * POCT glucose (10/19/2023 2:23 AM CDT) [facility] Glucose, POC 150 70 - 199 mg/dL Blood 10/19/2023 2:23 AM CDT 10/19/2023 2:23 AM CDT Gill Gamboa MD LAB POCT ORDERABLES - DEVICE Final Result Performing Organization Address City/[facility]/ZIP Co de Phone Number [employer] [facility] CLINICELLEN [address] [address] [place] [address] * Hepatitis B surface antibody (immune status) Blood (10/19/2023 1:04 AM CDT) HBsAb (immune status) Nonreactive Comment: Interpretive Data Nonreactive: This result is [...] interpretive data was last revised on 19. Blood 10/19/2023 1:04 AM CDT 10/19/2023 1:06 AM CDT Anil Wong MD LAB MICROBIOLOGY - GENERAL OR DERABLES Final Result Performing Organization Address [facility] Co de Phone Number NILSA [phone] [address] Dial [facility][1] [place] [address] * POCT glucose (10/18/2023 8:26 PM CDT) Glucose, POC 132 70 - 199 mg/dL Blood 10/18/2023 8:26 PM CDT 10/18/2023 8:26 PM CDT Gill Gamboa MD LAB POCT ORDERABLES - DEVICE Final Result Performing Organization Address [facility] Co de Phone Number NILSA [address] [address] [place] [address] * POCT glucose (10/18/2023 5:19 PM CDT) Glucose, POC 133 70 - 199 mg/dL Blood 10/18/2023 5:19 PM CDT 10/18/2023 5:19 PM CDT Gill Gamboa MD LAB POCT ORDERABLES - DEVICE Final Result Performing Organization Address [facility] Co de Phone Number NILSA [address] [address] [facility] [place] [address] * POCT glucose (10/18/2023 12:38 PM CDT) Glucose, POC 128 70 - 199 mg/dL Blood 10/18/2023 12:3 8 PM CDT 10/18/2023 12:38 PM CDT Gill Gamboa MD LAB POCT ORDERABLES - DEVICE Final Result Performing Organization Address [facility] Co de Phone Number NILSA [phone] [address] [facility] [place] [address] * POCT glucose (10/18/2023 7:37 AM CDT) Glucose, POC 88 70 - 199 mg/dL Blood 10/18/2023 7:37 AM CDT 10/18/2023 7:37 AM CDT Gill Gamboa MD LAB POCT ORDERABLES - DEVICE Final Result Performing Organization Address [facility] de Phone Number NILSA [address] [address] [facility] [place] [address] * (ABNORMAL) eGFR (10/18/2023 6:53 AM CDT) eGFR 16(L) >=60 mL/min/1. 73 [...] interpretive data was last reviewed 2021. Blood 10/18/2023 6:53 AM CDT 10/18/2023 7:29 AM CDT us Rosa Jade NP LAB BLOOD ORDERABLES Final Res ult [facility] [address] [address] [place] [address] * (ABNORMAL) Renal function panel (10/18/2023 6:53 AM CDT) Sodium 137 135 - 145 mmol/L Potassium, pl 4.3 3.3 - 4.9 mmol/L [facility] Chloride 100 97 - 110 mmol/L [facility] CO2 27 22 - 32 mmol/L [facility] Anion gap 10 2 - 15 mmol/L [facility] BUN 28(H) 6 - 25 mg/dL [facility] Creatinine 3.07(H) 0.60 - 1.10 mg/dL [facility] Glucose 94 70 - 199 mg/dL [facility] Comment: Interpretive Data Fasting glucose >/= 126 [...] classification and Diagnosis of Diabetes Diabetes Care 2022; 46: S19-S40. Current interpretive data was last revised 2022. Calcium 9.0 8.5 - 10.3 mg/dL [facility] Phosphorus, pl 3.6 2.3 - 4.5 mg/dL [facility] Albumin 2.9(L) 3.5 - 5.0 g/dL [facility] Blood 10/18/2023 6:53 AM CDT 10/18/2023 7:29 AM CDT Rosa Jade CLINICAL NURSE LEADER LAB BLOOD ORDERABLES Final Res ult Performing Organization Address City/[facility]/ZIP Co de Phone Number NILSA MCDONNELL [address] [address] [place] [address] * POCT glucose (10/18/2023 2:08 AM CDT) Glucose, POC 86 70 - 199 mg/dL Blood 10/18/2023 2:08 AM CDT 10/18/2023 2:08 AM CDT Bev Adames MD LAB POCT ORDERABLES - DEVIC E Final Result Performing Organization Address [facility] Co de Phone Number CARLOS ENRIQUEELLEN MCDONNELL [address] [address] Dial [facility][1] [place], [place] [id number] * POCT glucose (10/17/2023 9:24 PM CDT) Glucose, POC 89 70 - 199 mg/dL Blood 10/17/2023 9:24 PM CDT 10/17/2023 9:24 PM CDT Bev Adames MD LAB POCT ORDERABLES - DEVIC E Final Result Performing Organization Address [facility] Co de Phone Number NILSA MCDONNELL [phone] [address] [facility] [place], [place] [id number] * POCT glucose (10/17/2023 5:42 PM CDT) Glucose, POC 146 70 - 199 mg/dL Blood 10/17/2023 5:42 PM CDT 10/17/2023 5:42 PM CDT Bev Adames MD LAB POCT ORDERABLES - DEVIC E Final Result Performing Organization Address City/State/[facility] Co de Phone Number NILSA MCDONNELL [phone] [address] [facility] [place] [address] * POCT glucose (10/17/2023 1:41 PM CDT) Pathologist [facility] Glucose, POC 125 70 - 199 mg/dL Blood 10/17/2023 1:41 PM CDT 10/17/2023 1:41 PM CDT Bev Adames MD LAB POCT ORDERABLES - DEVIC E Final Result Performing Organization Address [facility] de Phone Number NILSA MCDONNELL [phone] [address] [place] [address] * (ABNORMAL) CBC without differential (10/17/2023 9:30 AM CDT) WBC 8.5 3.8 - 9.9 K/cumm Hgb 8.2(L) 11.9 - 15.5 g/dL [facility] Hct 25.9(L) 35.6 - 45.5 % [facility] Plt 253 150 - 400 K/cumm [facility] MPV 11.3 9.1 - 12.3 fL [facility] RBC 2.76(L) 3.90 - 5.20 M/cumm [facility] MCV 93.8 81.3 - 96.4 fL [facility] MCH 29.7 27.1 - 33.3 pg [facility] MCHC 31.7(L) 32.3 - 35.7 g/dL [facility] CH RDW CV 13.6 11.1 - 14.9 % [facility] RDW SD 46.6 35.7 - 48.1 fL [facility] NRBC abs 0.00 0.00 - 0.01 K/cumm [facility] Blood 10/17/2023 9:30 AM CDT 10/17/2023 9:54 AM CDT us Jimbo Strauss MD LAB BLOOD ORDERABLES Final Resu lt Performing Organization Address [facility] Co de Phone Number NILSA MCDONNELL [address] [place] [address] * (ABNORMAL) eGFR (10/17/2023 8:57 AM CDT) eGFR 12(L) >=60 mL/min/1. 73 m2 Comment: [...] interpretive data was last reviewed 2021. Blood 10/17/2023 8:57 AM CDT 10/17/2023 9:12 AM CDT us Rosa Jade NP LAB BLOOD ORDERABLES Final Res ult Performing Organization Address [facility] Co de Phone Number NILSA MCDONNELL [address] [place] [address] * (ABNORMAL) Renal function panel (10/17/2023 8:57 AM CDT) Sodium 135 135 - 145 mmol/L Potassium, pl 4.0 3.3 - 4.9 mmol/L [facility] Chloride 96(L) 97 - 110 mmol/L [facility] CO2 28 22 - 32 mmol/L [facility] Anion gap 11 2 - 15 mmol/L [facility] BUN 39(H) 6 - 25 mg/dL [facility] Creatinine 3.81(H) 0.60 - 1.10 mg/dL [facility] Glucose 177 70 - 199 mg/dL [facility] Comment: [...] interpretive data was last revised 2022. Calcium 8.8 8.5 - 10.3 mg/dL [facility] Phosphorus, pl 4.1 2.3 - 4.5 mg/dL [facility] Albumin 2.9(L) 3.5 - 5.0 g/dL [facility] Blood 10/17/2023 8:57 AM CDT 10/17/2023 9:12 AM CDT us Rosa Jade NP LAB BLOOD ORDERABLES Final Res ult NILSA MCDONNELL [address] [address] [place] [address] * POCT glucose (10/17/2023 6:43 AM CDT) Glucose, POC 113 70 - 199 mg/dL Blood 10/17/2023 6:43 AM CDT 10/17/2023 6:43 AM CDT us Gill Gamboa MD LAB POCT ORDERABLES - DEVICE Final Result NILSA MCDONNELL [address] [address]ial [facility][1] [place] [address] * POCT glucose (10/17/2023 2:43 AM CDT) Glucose, POC 101 70 - 199 mg/dL Blood 10/17/2023 2:43 AM CDT 10/17/2023 2:43 AM CDT us Gill Gamboa MD LAB POCT ORDERABLES - DEVICE Final Result Performing Organization Address [facility] Co de Phone Number CARLOS ENRIQUEELLEN MCDONNELL [address] [address] Dial [facility][1] [place] [address] * POCT glucose (10/16/2023 8:41 PM CDT) Glucose, POC 194 70 - 199 mg/dL Blood 10/16/2023 8:41 PM CDT 10/16/2023 8:41 PM CDT us Gill Gamboa MD LAB POCT ORDERABLES - DEVICE Final Result Performing Organization Address City/[facility]/ZIP Co de Phone Number NILSA KECIA [address] [address] Dial [facility][1] [place] [address] * POCT glucose (10/16/2023 5:35 PM CDT) Glucose, POC 166 70 - 199 mg/dL Blood 10/16/2023 5:35 PM CDT 10/16/2023 5:35 PM CDT us Gill Gamboa MD LAB POCT ORDERABLES - DEVICE Final Result Performing Organization Address City/[facility]/ZIP Co de Phone Number CARLOS ENRIQUEELLEN MCDONNELL [address] Pandey [facility] [place] [address] * POCT glucose (10/16/2023 1:19 PM CDT) Glucose, POC 89 70 - 199 mg/dL Blood 10/16/2023 1:19 PM CDT 10/16/2023 1:19 PM CDT Gill Gamboa MD LAB POCT ORDERABLES - DEVICE Final Result Performing Organization Address [facility] de Phone Number NILSA [address] [address] [facility] [place] [address] * POCT glucose (10/16/2023 8:03 AM CDT) Pathologist [facility] Glucose, POC 180 70 - 199 mg/dL Blood 10/16/2023 8:03 AM CDT 10/16/2023 8:03 AM CDT Gill Gamboa MD LAB POCT ORDERABLES - DEVICE Final Result Performing Organization Address [facility] de Phone Number NILSA [address] [address] [facility] [place] [address] * (ABNORMAL) eGFR (10/16/2023 6:54 AM CDT) Pathologist [facility] eGFR 10(L) >=60 mL/min/1. 73 m2 Comment: [...] interpretive data was last reviewed 2021. Blood 10/16/2023 6:54 AM CDT 10/16/2023 7:35 AM CDT us Rosa Jade CLINICAL NURSE LEADER LAB BLOOD ORDERABLES Final Res ult [facility] [address] [address] [place] [address] * (ABNORMAL) Renal function panel (10/16/2023 6:54 AM CDT) Sodium 140 135 - 145 mmol/L Potassium, pl 4.0 3.3 - 4.9 mmol/L [facility] Chloride 103 97 - 110 mmol/L [facility] CO2 23 22 - 32 mmol/L [facility] Anion gap 14 2 - 15 mmol/L [facility] BUN 62(H) 6 - 25 mg/dL [facility] Creatinine 4.49(H) 0.60 - 1.10 mg/dL [facility] Glucose 186 70 - 199 mg/dL [facility] Comment: Interpretive Data Fasting glucose >/= 126 [...] interpretive data was last revised 2022. Calcium 8.5 8.5 - 10.3 mg/dL [facility] Phosphorus, pl 4.7(H) 2.3 - 4.5 mg/dL [facility] Albumin 2.6(L) 3.5 - 5.0 g/dL [facility] Blood 10/16/2023 6:54 AM CDT 10/16/2023 7:35 AM CDT Rosa Jade CLINICAL NURSE LEADER LAB BLOOD ORDERABLES Final Res ult NILSA MCDONNELL [address] [address] [place] [address] * (ABNORMAL) POCT glucose (10/16/2023 2:22 AM CDT) Glucose, POC 227(H) 70 - 199 mg/dL Blood 10/16/2023 2:22 AM CDT 10/16/2023 2:22 AM CDT Gill Gamboa MD LAB POCT ORDERABLES - DEVICE Final Result Performing Organization Address City/[facility]/ZIP Co de Phone Number CARLOS ENRIQUEELLEN MCDONNELL [address] [address] [place] [address] * POCT glucose (10/15/2023 10:54 PM CDT) Glucose, POC 96 70 - 199 mg/dL Blood 10/15/2023 10:5 4 PM CDT 10/15/2023 10:54 PM CDT Gill Gamboa MD LAB POCT ORDERABLES - DEVICE Final Result Performing Organization Address City/[facility]/ZIP Co de Phone Number NILSA MCDONNELL [address] [address] [place] [address] * POCT glucose (10/15/2023 5:28 PM CDT) Glucose, POC 142 70 - 199 mg/dL Blood 10/15/2023 5:28 PM CDT 10/15/2023 5:28 PM CDT us Gill Gamboa MD LAB POCT ORDERABLES - DEVICE Final Result Performing Organization Address City/[facility] Co de Phone Number NILSA MCDONNELL [address] Pand[address] [place] [address] * POCT glucose (10/15/2023 12:55 PM CDT) Glucose, POC 104 70 - 199 mg/dL Blood 10/15/2023 12:5 5 PM CDT 10/15/2023 12:55 PM CDT Gill Gamboa MD LAB POCT ORDERABLES - DEVICE Final Result Performing Organization Address [facility] Phone Number NILSA MCDONNELL [address] Pand[address] [place] [address] * IR Tunneled CVC > 5 Years (10/15/2023 9:25 AM CDT) Anatomical Region Laterality Modality Body N/A X-Ray Angiograph y 10/16/2023 2:01 PM CDT Impressions 10/16/2023 2:01 PM CDT Successful tunneled catheter placement, as described above. Plan: The catheter is ready for immediate use. ??When treatment is completed, removal can be scheduled by calling [facility] Interventional Radiology at [phone]. Electronically signed by: Marcus Mcdonald M.D. Narrative 10/16/2023 2:01 PM CDT EXAMINATION: IR TUNNELED LINE PLACEMENT > 5 YEARS Date: 10/15/2023 8:30 AM History: End-stage renal disease Fluoroscopy time: 0.01 minutes. Technique: The risks, benefits, and alternatives were discussed and informed consent was obtained. ??Prior to beginning the procedure, universal protocol was performed to confirm the patient's identity and the planned procedure. ??Maximum sterile barriers including cap, mask, hand hygiene, sterile gloves, sterile gown, large sterile drape, sterile gel, sterile ultrasound probe cover, and 2% chlorhexidine for cutaneous antisepsis were used. Prior to the procedure, the right internal jugular vein was evaluated by real-time ultrasound which demonstrated patency of the target vessel and an image of the PATENT VESSEL was recorded in the patient's electronic medical record. ??The skin over this vein was sterilely prepped, draped, and infiltrated with 1% lidocaine. ??This vein was then accessed with a 21-gauge needle using real-time ultrasound guidance for needle placement. ??A guidewire was passed centrally using fluoroscopic guidance. ??The intravascular length from the access site to the right atrium was assessed. After infiltrating the skin in the subclavicular region with 1% lidocaine, a short transverse incision was made and the 24 Duramax catheter was tunneled to the internal jugular vein access site and inserted through a peel-away sheath. ??The peel-away sheath was then removed. ??The catheter was flushed with heparin and secured in place. The incision in the lower neck was closed using 4-0 Monocryl. ??A sterile dressing was applied. Findings: The final fluoroscopic image demonstrates the catheter with its tip cavoatrial junction. ??No complications were identified. Procedure Note Marcus Mcdonald MD - 10/16/2023 EXAMINATION: IR TUNNELED LINE PLACEMENT > 5 [...] vein was evaluated by real-time ultrasound which demonstrated patency of the target vessel and an [...] tip cavoatrial junction. No complications were identified. IMPRESSION: Successful tunneled catheter placement, as described above. Plan: The catheter is ready for immediate use. When treatment is completed, removal can be scheduled by calling [facility] Interventional Radiology at [phone]. Electronically signed by: Marcus Mcdonald M.D. Jimbo Strauss MD IMG IR PROCEDURES Final Result * (ABNORMAL) eGFR (10/15/2023 6:50 AM CDT) eGFR 8(L) >=60 mL/min/1. 73 m2 [...] interpretive data was last reviewed 2021. Blood 10/15/2023 6:50 AM CDT 10/15/2023 7:08 AM CDT us Rosa Jade CLINICAL NURSE LEADER LAB BLOOD ORDERABLES Final Res ult Performing Organization Address [facility] Co de Phone Number NILSA [phone] [address] [place] [address] * Hepatitis B surface antibody (immune status) Blood (10/15/2023 6:50 AM CDT) HBsAb (immune status) Nonreactive Comment: Interpretive Data Nonreactive: This result is [...] interpretive data was last revised on 19. Blood 10/15/2023 6:50 AM CDT 10/15/2023 7:07 AM CDT Jimbo Strauss MD LAB MICROBIOLOGY - GENERAL ORDE RABLES Final Result Performing Organization Address [facility] Co de Phone Number NILSA MCDONNELL [address] [place] [address] * Hepatitis panel, acute Blood (10/15/2023 6:50 AM CDT) Hep A IgM Nonreactive Nonreactive Comment: Interpretive Data: If Hep A IgM Ab is reported as Equivocal, a new sample should be drawn in two weeks for testing. Current interpretive data was last revised on 19. Hep B core IgM Nonreactive Nonreactive NILSA MCDONNELL Comment: Interpretive Data If HepB Core IgM [...] last revised on 2019. HepBsAg Nonreactive Nonreactive [employer] [facility] Blood 10/15/2023 6:50 AM CDT 10/15/2023 7:07 AM CDT Jimbo Strauss MD LAB MICROBIOLOGY - [facility] Final Result Performing Organization Address [facility] de Phone Number NILSA [phone] [employer] [place], [place] [id number] * aPTT (10/15/2023 6:50 AM CDT) aPTT 36 28 - 38 sec Comment: Interpretive Data Heparin therapeutic range: 66.0 - 100.0 seconds. Range based on correlation with therapeutic heparin activity range of 0.3 - 0.7 Units/mL. Current interpretive data was last revised on 2023. Blood 10/15/2023 6:50 AM CDT 10/15/2023 7:08 AM CDT Jimbo Strauss MD LAB BLOOD ORDERABLES Final Resu lt Performing Organization Address [facility] Co de Phone Number [facility] [phone] [address] [place], [place] [id number] * Protime-INR (10/15/2023 6:50 AM CDT) PT 12.0 10.3 - 13.7 sec INR 1.05 0.90 - 1.20 [facility] Comment: Interpretive data Oral anticoagulant therapeutic ranges: Venous thromboembolism prophylaxis or treatment: 2.0-3.0 CARDIOLOGY Standard range: 2.0-3.0 High-intensity range: 2.5-3.5 Refer to indication-specific guidelines for appropriate target ranges for prosthetic heart valve replacement. Current interpretive data was last revised on 2019. Blood 10/15/2023 6:50 AM CDT 10/15/2023 7:08 AM CDT us Jimbo Strauss MD LAB BLOOD ORDERABLES Final Resu lt [employer] [facility] [facility] [address] [place] [address] * (ABNORMAL) Renal function panel (10/15/2023 6:50 AM CDT) Sodium 140 135 - 145 mmol/L Potassium, pl 4.6 3.3 - 4.9 mmol/L [facility] Chloride 110 97 - 110 mmol/L [facility] CO2 19(L) 22 - 32 mmol/L [facility] Anion gap 11 2 - 15 mmol/L [facility] BUN 88(H) 6 - 25 mg/dL [facility] Creatinine 5.44(H) 0.60 - 1.10 mg/dL [facility] Glucose 161 70 - 199 mg/dL [facility] Comment: Interpretive Data Fasting glucose >/= 126 [...] classification and Diagnosis of Diabetes Diabetes Care 2022; 46: S19-S40. Current interpretive data was last revised 2022. Calcium 8.5 8.5 - 10.3 mg/dL [facility] Phosphorus, pl 6.2(H) 2.3 - 4.5 mg/dL [facility] Albumin 2.8(L) 3.5 - 5.0 g/dL [facility] Blood 10/15/2023 6:50 AM CDT 10/15/2023 7:08 AM CDT Rosa Jade CLINICAL NURSE LEADER LAB BLOOD ORDERABLES Final Res ult Performing Organization Address [facility] Co de Phone Number NILSA MCDONNELL [phone] [address] [facility] [place] [address] * POCT glucose (10/15/2023 2:33 AM CDT) Glucose, POC 138 70 - 199 mg/dL Blood 10/15/2023 2:33 AM CDT 10/15/2023 2:33 AM CDT Gill Gamboa MD LAB POCT ORDERABLES - DEVICE Final Result Performing Organization Address [facility] Co de Phone Number NILSA [phone] [address] [facility] [place] [address] * POCT glucose (10/14/2023 10:40 PM CDT) Glucose, POC 137 70 - 199 mg/dL Blood 10/14/2023 10:4 0 PM CDT 10/14/2023 10:40 PM CDT Gill Gamboa MD LAB POCT ORDERABLES - DEVICE Final Result Performing Organization Address [facility] Co de Phone Number [facility] [phone] [address] [place] [address] * POCT glucose (10/14/2023 5:31 PM CDT) Glucose, POC 193 70 - 199 mg/dL Blood 10/14/2023 5:31 PM CDT 10/14/2023 5:31 PM CDT Gill Gamboa MD LAB POCT ORDERABLES - DEVICE Final Result Performing Organization Address [facility] de Phone Number NILSA MCDONNELL [address] [address] [facility] [place] [address] * POCT glucose (10/14/2023 12:54 PM CDT) Glucose, POC 86 70 - 199 mg/dL Blood 10/14/2023 12:5 4 PM CDT 10/14/2023 12:54 PM CDT Gill Gamboa MD LAB POCT ORDERABLES - DEVICE Final Result Performing Organization Address [facility] de Phone Number NILSA MCDONNELL [phone] [address] [facility] [place] [employer] [place], [place] [id number] * (ABNORMAL) POCT glucose (10/14/2023 7:47 AM CDT) Pathologist [facility] Glucose, POC 270(H) 70 - 199 mg/dL Blood 10/14/2023 7:47 AM CDT 10/14/2023 7:47 AM CDT Gill Gamboa MD LAB POCT ORDERABLES - DEVICE Final Result Performing Organization Address [facility] de Phone Number NILSA MCDONNELL [address] [address] [facility] [place] [employer] [place], [place] [id number] * (ABNORMAL) eGFR (10/14/2023 6:13 AM CDT) eGFR 8(L) >=60 mL/min/1. 73 m2 [...] interpretive data was last reviewed 2021. Blood 10/14/2023 6:13 AM CDT 10/14/2023 6:27 AM CDT us Rosa Jade CLINICAL NURSE LEADER LAB BLOOD ORDERABLES Final Res ult [facility] [phone] [address] Department of Laboratories [place] [phone] * (ABNORMAL) Renal function panel (10/14/2023 6:13 AM CDT) Sodium 141 135 - 145 mmol/L Potassium, pl 4.8 3.3 - 4.9 mmol/L [facility] Chloride 111(H) 97 - 110 mmol/L [facility] CO2 19(L) 22 - 32 mmol/L [facility] Anion gap 11 2 - 15 mmol/L [facility] BUN 78(H) 6 - 25 mg/dL [facility] Creatinine 5.09(H) 0.60 - 1.10 mg/dL [facility] Glucose 227(H) 70 - 199 mg/dL [facility] Comment: Interpretive Data Fasting glucose >/= 126 [...] interpretive data was last revised 2022. Calcium 8.3(L) 8.5 - 10.3 mg/dL [facility] Phosphorus, pl 5.5(H) 2.3 - 4.5 mg/dL [facility] Albumin 2.7(L) 3.5 - 5.0 g/dL [facility] Blood 10/14/2023 6:13 AM CDT 10/14/2023 6:27 AM CDT Rosa Jade NP LAB BLOOD ORDERABLES Final Res ult Performing Organization Address City/[facility]/ZIP Co de Phone Number NILSA MCDONNELL [phone] [address] [place] [address] * (ABNORMAL) POCT glucose (10/14/2023 2:07 AM CDT) Glucose, POC 206(H) 70 - 199 mg/dL Blood 10/14/2023 2:07 AM CDT 10/14/2023 2:07 AM CDT Bev Adames MD LAB POCT ORDERABLES - DEVIC E Final Result Performing Organization Address City/[facility] Co de Phone Number NILSA KECIA [address] [place] [address] * POCT glucose (10/13/2023 10:49 PM CDT) Glucose, POC 131 70 - 199 mg/dL Blood 10/13/2023 10:4 9 PM CDT 10/13/2023 10:49 PM CDT Bev Adames MD LAB POCT ORDERABLES - DEVIC E Final Result Performing Organization Address [facility] Co de Phone Number CARLOS ENRIQUEELLEN MCDONNELL [phone] [address] [facility] [place] [address] * POCT glucose (10/13/2023 6:19 PM CDT) Glucose, POC 126 70 - 199 mg/dL Blood 10/13/2023 6:19 PM CDT 10/13/2023 6:19 PM CDT Bev Adames MD LAB POCT ORDERABLES - DEVIC E Final Result Performing Organization Address City/[facility] Co de Phone Number NILSA [phone] [place] [address] * POCT glucose (10/13/2023 12:31 PM CDT) Glucose, POC 128 70 - 199 mg/dL Blood 10/13/2023 12:3 1 PM CDT 10/13/2023 12:31 PM CDT Result [facility] Bev Adames MD LAB POCT ORDERABLES - DEVIC E Final Result Performing Organization Address City/[facility] Co de Phone Number NILSA [phone] [place] [address] * POCT glucose (10/13/2023 7:42 AM CDT) Glucose, POC 135 70 - 199 mg/dL Blood 10/13/2023 7:42 AM CDT 10/13/2023 7:42 AM CDT Result [facility] Bev Adames MD LAB POCT ORDERABLES - DEVIC E Final Result Performing Organization Address City/[facility] Co de Phone Number NILSA [phone] [place] [address] * (ABNORMAL) eGFR (10/13/2023 6:20 AM CDT) eGFR 8(L) >=60 mL/min/1. 73 m2 [...] interpretive data was last reviewed 2021. Blood 10/13/2023 6:20 AM CDT 10/13/2023 7:07 AM CDT us Rosa Jade CLINICAL NURSE LEADER LAB BLOOD ORDERABLES Final Res ult Performing Organization Address City/State/ZIP Co ky Phone Number [facility] [address] [address] [place] [address] * (ABNORMAL) Renal function panel (10/13/2023 6:20 AM CDT) Sodium 141 135 - 145 mmol/L Potassium, pl 4.4 3.3 - 4.9 mmol/L [facility] Chloride 110 97 - 110 mmol/L [facility] CO2 19(L) 22 - 32 mmol/L [facility] Anion gap 12 2 - 15 mmol/L [facility] BUN 78(H) 6 - 25 mg/dL [facility] Creatinine 5.41(H) 0.60 - 1.10 mg/dL [facility] Glucose 137 70 - 199 mg/dL [facility] Comment: [...] interpretive data was last revised 2022. Calcium 8.1(L) 8.5 - 10.3 mg/dL [facility] Phosphorus, pl 6.2(H) 2.3 - 4.5 mg/dL [facility] Albumin 2.6(L) 3.5 - 5.0 g/dL [facility] Blood 10/13/2023 6:20 AM CDT 10/13/2023 7:07 AM CDT us Rosa Jade NP LAB BLOOD ORDERABLES Final Res ult Performing Organization Address City/[facility]/ZIP Co de Phone Number NILSA MCDONNELL [phone] [place] [address] * (ABNORMAL) POCT glucose (10/12/2023 11:40 PM CDT) Glucose, POC 212(H) 70 - 199 mg/dL Blood 10/12/2023 11:4 0 PM CDT 10/12/2023 11:40 PM CDT Bev Adames MD LAB POCT ORDERABLES - DEVIC E Final Result Performing Organization Address [facility] Co de Phone Number NILSA MCDONNELL [address] [address] [place] [address] * (ABNORMAL) POCT glucose (10/12/2023 8:46 PM CDT) Glucose, POC 217(H) 70 - 199 mg/dL Blood 10/12/2023 8:46 PM CDT 10/12/2023 8:46 PM CDT us Bev Adames MD LAB POCT ORDERABLES - DEVIC E Final Result Performing Organization Address [facility] Co de Phone Number NILSA [phone] [address] [facility] [place] [address] * POCT glucose (10/12/2023 5:14 PM CDT) Glucose, POC 158 70 - 199 mg/dL Blood 10/12/2023 5:14 PM CDT 10/12/2023 5:14 PM CDT Result [facility] Bev Adames MD LAB POCT ORDERABLES - DEVIC E Final Result Performing Organization Address [facility] de Phone Number NILSA [phone] [address] [facility] [place] [address] * (ABNORMAL) POCT glucose (10/12/2023 12:20 PM CDT) Glucose, POC 212(H) 70 - 199 mg/dL Blood 10/12/2023 12:2 0 PM CDT 10/12/2023 12:20 PM CDT us Bev Adames MD LAB POCT ORDERABLES - DEVIC E Final Result Performing Organization Address [facility] Co de Phone Number NILSA [address] [address] [facility] [place] [address] * POCT glucose (10/12/2023 8:15 AM CDT) Glucose, POC 111 70 - 199 mg/dL Blood 10/12/2023 8:15 AM CDT 10/12/2023 8:15 AM CDT Bev Adames MD LAB POCT ORDERABLES - DEVIC E Final Result Performing Organization Address [facility] Co de Phone Number NILSA MCDONNELL [phone] [place] [address] * (ABNORMAL) eGFR (10/12/2023 6:56 AM CDT) eGFR 8(L) >=60 mL/min/1. 73 m2 [...] interpretive data was last reviewed 2021. Blood 10/12/2023 6:56 AM CDT 10/12/2023 7:40 AM CDT us Rosa Jade CLINICAL NURSE LEADER LAB BLOOD ORDERABLES Final Res ult Performing Organization Address [facility] Co de Phone Number NILSA MCDONNELL [address] [address] Department [place], [place] [phone] * (ABNORMAL) Renal function panel (10/12/2023 6:56 AM CDT) Sodium 143 135 - 145 mmol/L Potassium, pl 4.0 3.3 - 4.9 mmol/L [facility] Chloride 111(H) 97 - 110 mmol/L [facility] CO2 21(L) 22 - 32 mmol/L [facility] Anion gap 11 2 - 15 mmol/L [facility] BUN 74(H) 6 - 25 mg/dL [facility] Creatinine 5.33(H) 0.60 - 1.10 mg/dL [facility] Glucose 108 70 - 199 mg/dL [facility] Comment: [...] interpretive data was last revised 2022. Calcium 8.0(L) 8.5 - 10.3 mg/dL [facility] Phosphorus, pl 5.8(H) 2.3 - 4.5 mg/dL [facility] Albumin 2.6(L) 3.5 - 5.0 g/dL [facility] Blood 10/12/2023 6:56 AM CDT 10/12/2023 7:40 AM CDT us Rosa Jade NP LAB BLOOD ORDERABLES Final Res ult NILSA [phone] [address] [place] [address] * POCT glucose (10/12/2023 2:44 AM CDT) Glucose, POC 149 70 - 199 mg/dL Blood 10/12/2023 2:44 AM CDT 10/12/2023 2:44 AM CDT Bev Adames MD LAB POCT ORDERABLES - DEVIC E Final Result Performing Organization Address City/[facility] Co de Phone Number NILSA MCDONNELL [phone] [address] [facility] [place] [address] * POCT glucose (10/11/2023 9:58 PM CDT) Glucose, POC 131 70 - 199 mg/dL Blood 10/11/2023 9:58 PM CDT 10/11/2023 9:58 PM CDT Bev Adames MD LAB POCT ORDERABLES - DEVIC E Final Result Performing Organization Address [facility] de Phone Number CARLOS ENRIQUEELLEN MCDONNELL [address] [address] [facility] [place] [address] * POCT glucose (10/11/2023 5:04 PM CDT) Glucose, POC 182 70 - 199 mg/dL Blood 10/11/2023 5:04 PM CDT 10/11/2023 5:04 PM CDT Bev Adames MD LAB POCT ORDERABLES - DEVIC E Final Result Performing Organization Address [facility] Co de Phone Number NILSA KECIA [address] [address] [facility][1] [place] [address] * POCT glucose (10/11/2023 12:00 PM CDT) Glucose, POC 124 70 - 199 mg/dL Blood 10/11/2023 12:0 0 PM CDT 10/11/2023 12:00 PM CDT Bev Adames MD LAB POCT ORDERABLES - DEVIC E Final Result Performing Organization Address City/[facility] Co de Phone Number CARLOS ENRIQUEELLEN MCDONNELL [address] [address] [facility][1] [place] [address] * CT Head WO Contrast (10/11/2023 10:34 AM CDT) Anatomical Region Laterality Modality Head and Neck N/A Computed Tomogra phy 10/11/2023 10:4 9 AM CDT Impressions 10/11/2023 10:49 AM CDT 1. ??No acute intracranial findings. 2. ??Scattered hypodensities compatible with chronic microvascular ischemic changes. 3. ??Bilateral mastoid effusions, right greater than left. Electronically signed by: Phil Pete II, D.O. Narrative 10/11/2023 10:49 AM CDT EXAMINATION: CT HEAD WO CONTRAST DATE: 10/11/2023 10:05 AM HISTORY: Mental status change. COMPARISON: None. TECHNIQUE: Transaxial computed tomographic images of the head were obtained without intravenous contrast. FINDINGS: No mass, mass effect, midline shift, or hemorrhage is demonstrated. Scattered hypodensities are noted throughout the white matter consistent with chronic microvascular ischemic changes. ??The orbits and paranasal sinuses are normal in appearance. ??Extracalvarial soft tissues are unremarkable. ??Bilateral mastoid effusions, right greater than left. Procedure Note Phil Pete II, DO - 10/11/2023 EXAMINATION: CT HEAD WO CONTRAST DATE: 10/11/2023 10:05 AM HISTORY: Mental status change. COMPARISON: None. TECHNIQUE: Transaxial computed tomographic images of the head were obtained without intravenous contrast. FINDINGS: No mass, mass effect, midline shift, or hemorrhage is demonstrated. Scattered hypodensities are noted throughout the white matter consistent with chronic microvascular ischemic changes. The orbits and paranasal sinuses are normal in appearance. Extracalvarial soft tissues are unremarkable. Bilateral mastoid effusions, right greater than left. IMPRESSION: 1. No acute intracranial findings. 2. Scattered hypodensities compatible with chronic microvascular ischemic changes. 3. Bilateral mastoid effusions, right greater than left. Electronically signed by: Phil Pete II, D.O. Bev Adames MD IMG CT PROCEDURES Final Res ult * POCT glucose (10/11/2023 7:20 AM CDT) Glucose, POC 88 70 - 199 mg/dL Blood 10/11/2023 7:20 AM CDT 10/11/2023 7:20 AM CDT Bev Adames MD LAB POCT ORDERABLES - DEVIC E Final Result Performing Organization Address City/State/ZIP Co [place] Phone Number NILSA [address] [address] [place] [address] * (ABNORMAL) eGFR (10/11/2023 4:43 AM CDT) eGFR 10(L) >=60 mL/min/1. 73 [...] interpretive data was last reviewed 2021. Blood 10/11/2023 4:43 AM CDT 10/11/2023 6:00 AM CDT Rosa Jade CLINICAL NURSE LEADER LAB BLOOD ORDERABLES Final Res ult Performing Organization Address City/[facility] Co de Phone Number NILSA MCDONNELL [address] [place] [address] * (ABNORMAL) Renal function panel (10/11/2023 4:43 AM CDT) Sodium 141 135 - 145 mmol/L Potassium, pl 3.5 3.3 - 4.9 mmol/L [facility] Chloride 109 97 - 110 mmol/L [facility] CO2 22 22 - 32 mmol/L [facility] Anion gap 10 2 - 15 mmol/L [facility] BUN 65(H) 6 - 25 mg/dL [facility] Creatinine 4.55(H) 0.60 - 1.10 mg/dL [facility] Glucose 78 70 - 199 mg/dL [facility] Comment: [...] interpretive data was last revised 2022. Calcium 8.3(L) 8.5 - 10.3 mg/dL [facility] Phosphorus, pl 5.5(H) 2.3 - 4.5 mg/dL [facility] Albumin 2.8(L) 3.5 - 5.0 g/dL [facility] Blood 10/11/2023 4:43 AM CDT 10/11/2023 6:00 AM CDT Rosa Jade CLINICAL NURSE LEADER LAB BLOOD ORDERABLES Final Res ult Performing Organization Address City/[facility]/ZIP Co de Phone Number NILSA MCDONNELL [address] [place] [address] * (ABNORMAL) POCT glucose (10/11/2023 1:18 AM CDT) Glucose, POC 206(H) 70 - 199 mg/dL Blood 10/11/2023 1:18 AM CDT 10/11/2023 1:18 AM CDT Bev Adames MD LAB POCT ORDERABLES - DEVIC E Final Result Performing Organization Address City/[facility] Co de Phone Number CARLOS ENRIQUEELLEN [address] [address] [facility] [place] [address] * POCT glucose (10/10/2023 7:49 PM CDT) Glucose, POC 155 70 - 199 mg/dL Blood 10/10/2023 7:49 PM CDT 10/10/2023 7:49 PM CDT Bev Adames MD LAB POCT ORDERABLES - DEVIC E Final Result Performing Organization Address [facility] de Phone Number [facility] [address] [address] [facility] [place] [address] * Differential, auto (10/10/2023 6:08 PM CDT) Neutrophil abs 6.4 1.5 - 6.5 K/cumm Imm gran abs 0.0 0.0 - 0.1 K/cumm [facility] Lymphocyte abs 1.8 0.8 - 3.3 K/cumm [facility] Monocyte abs 0.6 0.2 - 0.8 K/cumm [facility] Eosinophil abs 0.1 0.0 - 0.5 K/cumm [facility] Basophil abs 0.0 0.0 - 0.1 K/cumm [facility] Neutrophil pct 71.5 % [facility] Comment: Interpretive Data Percent cell count reference ranges are not reported, since discordance with absolute values may lead to misinterpretation of CBC data. Current Interpretive Data was last revised on 2017. Imm gran pct 0.3 % [facility] Comment: Interpretive Data Percent cell count reference ranges are not reported, since discordance with absolute values may lead to misinterpretation of CBC data. Current Interpretive Data was last revised on 2017. Lymphocyte pct 20.0 % [facility] Comment: Interpretive Data Percent cell count reference ranges are not reported, since discordance with absolute values may lead to misinterpretation of CBC data. Current Interpretive Data was last revised on 2017. Monocyte pct 6.4 % [facility] Comment: Interpretive Data Percent cell count reference ranges are not reported, since discordance with absolute values may lead to misinterpretation of CBC data. Current Interpretive Data was last revised on 2017. Eosinophil pct 1.5 % [facility] Comment: Interpretive Data Percent cell count reference ranges are not reported, since discordance with absolute values may lead to misinterpretation of CBC data. Current Interpretive Data was last revised on 2017. Basophil pct 0.3 % [facility] Comment: Interpretive Data Percent cell count reference ranges are not reported, since discordance with absolute values may lead to misinterpretation of CBC data. Current Interpretive Data was last revised on 2017. Blood 10/10/2023 6:08 PM CDT 10/10/2023 6:11 PM CDT Bev Adames MD LAB BLOOD ORDERABLES Final Result [facility] [address] [address] [place] [address] * (ABNORMAL) CBC with auto differential (10/10/2023 6:08 PM CDT) WBC 8.9 3.8 - 9.9 K/cumm Hgb 9.6(L) 11.9 - 15.5 g/dL [facility] Hct 29.6(L) 35.6 - 45.5 % [facility] Plt 322 150 - 400 K/cumm [facility] MPV 10.8 9.1 - 12.3 fL [facility] RBC 3.19(L) 3.90 - 5.20 M/cumm [facility] MCV 92.8 81.3 - 96.4 fL [facility] MCH 30.1 27.1 - 33.3 pg [facility] MCHC 32.4 32.3 - 35.7 g/dL [facility] RDW CV 14.5 11.1 - 14.9 % [facility] RDW SD 49.1(H) 35.7 - 48.1 fL [facility] NRBC abs 0.00 0.00 - 0.01 K/cumm [facility] Blood 10/10/2023 6:08 PM CDT 10/10/2023 6:11 PM CDT Bev Adames MD LAB BLOOD ORDERABLES Final Result NILSA KECIA [address] [address] [place] [address] * POCT glucose (10/10/2023 5:32 PM CDT) Glucose, POC 87 70 - 199 mg/dL Blood 10/10/2023 5:32 PM CDT 10/10/2023 5:32 PM CDT Bev Adames MD LAB POCT ORDERABLES - DEVIC E Final Result Performing Organization Address City/[facility] Co de Phone Number NILSA MCDONNELL [address] [address] [place] [address] * XR Chest 1 View (10/10/2023 5:10 PM CDT) Anatomical Region Laterality Modality Body, Chest N/A Computed Radiogr aphy 10/11/2023 7:58 AM CDT Impressions 10/11/2023 7:58 AM CDT FINDINGS/IMPRESSION: No pneumothorax or pleural effusion. ??Mild pulmonary vascular congestion. ??No cardiomegaly. ??No acute osseous abnormality. Electronically signed by: Phil Pete II, D.O. Narrative 10/11/2023 7:58 AM CDT EXAMINATION: XR CHEST 1 VIEW DATE: 10/10/2023 4:50 PM INDICATION: CHF follow-up. COMPARISON: 07/28/2023. Procedure Note Phil Pete II, - 10/11/2023 EXAMINATION: XR CHEST 1 VIEW DATE: 10/10/2023 4:50 PM INDICATION: CHF follow-up. COMPARISON: 07/28/2023. IMPRESSION: FINDINGS/IMPRESSION: No pneumothorax or pleural effusion. Mild pulmonary vascular congestion. No cardiomegaly. No acute osseous abnormality. Electronically signed by: Phil Pete II, D.O. Bev Adames MD IMG XR PROCEDURES Final Res ult * Urinalysis, microscopic only (10/10/2023 3:00 PM CDT) WBC, ur 0-5 0 - 5 /HPF RBC, ur 0-2 0 - 2 /HPF [facility] Epithelial cells, squamous, ur 1-5 0 - 5 /HPF [facility] Culture Reflex Comment Reflex conditions for urine culture (WBC >10) not met. [facility] Urine, clean voided 10/10/2023 3:00 PM CDT 10/10/2023 7:10 PM CDT Bev Adames MD LAB URINE ORDERABLES Final Result [facility] [address] [place] [address] * (ABNORMAL) Urinalysis reflex to microscopic and culture Urine, clean voided (10/10/2023 3:00 PM CDT) Color, ur Straw Yellow Clarity, ur Clear Clear [facility] Specific gravity, ur 1.009 1.003 - 1.030 [facility] pH, urine 6.0 [facility] Comment: Interpretive Data ? Urine pH is affected by diet, medications, systemic acid-base disturbances, and renal tubular function. ??pH may affect urinary stone formation. ??For example, urine pH below 6.0 may help reduce the tendency for calcium phosphate stones and pH greater than 6.0 may reduce the tendency for uric acid stone formation. Source: [facility] Current Interpretive Data was last revised on 2017 Protein, ur ql 3+(A) Negative [facility] Glucose, ur ql 1+(A) Negative [facility] Ketones, ur Negative Negative [facility] Bilirubin, ur Negative Negative [facility] Blood, ur 1+(A) Negative [facility] Urobilinogen, ur <2.0 <2.0 mg/dL [facility] Nitrite, ur Negative Negative [facility] Leukocyte esterase, ur Negative Negative [facility] UA reflex comment Reflex to microscopic UA will be performed. [facility] Urine, clean voided 10/10/2023 3:00 PM CDT 10/10/2023 7:10 PM CDT Result [facility] Bev Adames MD LAB MICROBIOLOGY - GENERAL ORDERABLES Final Result Performing Organization Address [facility] Co de Phone Number NILSA MCDONNELL [address] Department [place] [address] * POCT glucose (10/10/2023 12:30 PM CDT) Glucose, POC 128 70 - 199 mg/dL Blood 10/10/2023 12:3 0 PM CDT 10/10/2023 12:30 PM CDT Result [facility] Bev Adames MD LAB POCT ORDERABLES - DEVIC E Final Result Performing Organization Address [facility] de Phone Number NILSA KECIA [address] Department [place] [address] * POCT glucose (10/10/2023 7:44 AM CDT) Glucose, POC 79 70 - 199 mg/dL Blood 10/10/2023 7:44 AM CDT 10/10/2023 7:44 AM CDT Bev Adames MD LAB POCT ORDERABLES - DEVIC E Final Result NILSA MCDONNELL [address] Department [place] [address] * (ABNORMAL) eGFR (10/10/2023 5:01 AM CDT) eGFR 9(L) >=60 mL/min/1. 73 [...] interpretive data was last reviewed 2021. Blood 10/10/2023 5:01 AM CDT 10/10/2023 6:19 AM CDT us Rosa Jade CLINICAL NURSE LEADER LAB BLOOD ORDERABLES Final Res ult NILSA MCDONNELL [address] Department [place] [address] * (ABNORMAL) Renal function panel (10/10/2023 5:01 AM CDT) Pathologist [facility] Sodium 141 135 - 145 mmol/L Potassium, pl 3.9 3.3 - 4.9 mmol/L [facility] Chloride 106 97 - 110 mmol/L [facility] CO2 20(L) 22 - 32 mmol/L [facility] Anion gap 15 2 - 15 mmol/L [facility] BUN 64(H) 6 - 25 mg/dL [facility] Creatinine 4.68(H) 0.60 - 1.10 mg/dL [facility] Glucose 78 70 - 199 mg/dL [facility] [employer] [facility] Comment: Interpretive Data Fasting glucose >/= 126 [...] interpretive data was last revised 2022. Calcium 8.4(L) 8.5 - 10.3 mg/dL [facility] Phosphorus, pl 5.5(H) 2.3 - 4.5 mg/dL [facility] Albumin 3.0(L) 3.5 - 5.0 g/dL [facility] Blood 10/10/2023 5:01 AM CDT 10/10/2023 6:19 AM CDT Rosa Jade NP LAB BLOOD ORDERABLES Final Res ult Performing Organization Address City/State/[facility] Co de Phone Number [facility] [employer] [facility] [employer] [address] Department [place] [address] * POCT glucose (10/10/2023 2:17 AM CDT) [facility] Glucose, POC 107 70 - 199 mg/dL Blood 10/10/2023 2:17 AM CDT 10/10/2023 2:17 AM CDT Bev Adames MD LAB POCT ORDERABLES - DEVIC E Final Result Performing Organization Address City/[facility]/ZIP Co de Phone Number NILSA MCDONNELL [address] [facility] [place] [address] * POCT glucose (10/09/2023 8:15 PM CDT) Glucose, POC 82 70 - 199 mg/dL Blood 10/09/2023 8:15 PM CDT 10/09/2023 8:15 PM CDT Bev Adames MD LAB POCT ORDERABLES - DEVIC E Final Result Performing Organization Address [facility] Co de Phone Number CARLOS ENRIQUEELLEN MCDONNELL [address] [facility] [place] [address] * POCT glucose (10/09/2023 6:04 PM CDT) Glucose, POC 103 70 - 199 mg/dL Blood 10/09/2023 6:04 PM CDT 10/09/2023 6:04 PM CDT Bev Adames MD LAB POCT ORDERABLES - DEVIC E Final Result Performing Organization Address [facility] Co de Phone Number CARLOS ENRIQUEELLEN MCDONNELL [address] [facility] [place] [address] * POCT glucose (10/09/2023 12:39 PM CDT) Glucose, POC 120 70 - 199 mg/dL Blood 10/09/2023 12:3 9 PM CDT 10/09/2023 12:39 PM CDT Bev Adames MD LAB POCT ORDERABLES - DEVIC E Final Result Performing Organization Address [facility] Co de Phone Number NILSA MCDONNELL [address] [facility] [place] [address] * POCT glucose (10/09/2023 7:44 AM CDT) Glucose, POC 91 70 - 199 mg/dL Blood 10/09/2023 7:44 AM CDT 10/09/2023 7:44 AM CDT Bev Adames MD LAB POCT ORDERABLES - DEVIC E Final Result Performing Organization Address City/State/ZIP [place] Phone Number NILSA [address] Department [place] [address] * (ABNORMAL) eGFR (10/09/2023 7:14 AM CDT) [facility] eGFR 10(L) >=60 mL/min/1. 73 m2 Comment: [...] interpretive data was last reviewed 2021. Blood 10/09/2023 7:14 AM CDT 10/09/2023 8:03 AM CDT us Rosa J. Wheat CLINICAL NURSE LEADER LAB BLOOD ORDERABLES Final Res ult Performing Organization Address [facility] Co de Phone Number NILSA MCDONNELL [address] [place] [address] * (ABNORMAL) Renal function panel (10/09/2023 7:14 AM CDT) Sodium 144 135 - 145 mmol/L Potassium, pl 4.1 3.3 - 4.9 mmol/L [facility] Chloride 110 97 - 110 mmol/L [facility] CO2 19(L) 22 - 32 mmol/L [facility] Anion gap 15 2 - 15 mmol/L [facility] BUN 59(H) 6 - 25 mg/dL [facility] Creatinine 4.59(H) 0.60 - 1.10 mg/dL [facility] Glucose 90 70 - 199 mg/dL [facility] Comment: [...] interpretive data was last revised 2022. Calcium 8.2(L) 8.5 - 10.3 mg/dL [facility] Phosphorus, pl 5.8(H) 2.3 - 4.5 mg/dL [facility] Albumin 2.7(L) 3.5 - 5.0 g/dL [facility] Blood 10/09/2023 7:14 AM CDT 10/09/2023 8:03 AM CDT Rosa Jade CLINICAL NURSE LEADER LAB BLOOD ORDERABLES Final Res ult Performing Organization Address [facility] Co de Phone Number NILSA MCDONNELL [address] [place] [address] * POCT glucose (10/09/2023 1:48 AM CDT) Glucose, POC 137 70 - 199 mg/dL Blood 10/09/2023 1:48 AM CDT 10/09/2023 1:48 AM CDT Bev Adames MD LAB POCT ORDERABLES - DEVIC E Final Result Performing Organization Address [facility] de Phone Number [facility] [address] [facility] [place] [place], [place] [id number] * (ABNORMAL) POCT glucose (10/08/2023 8:39 PM CDT) Glucose, POC 216(H) 70 - 199 mg/dL Blood 10/08/2023 8:39 PM CDT 10/08/2023 8:39 PM CDT Result [facility] Bev Adames MD LAB POCT ORDERABLES - DEVIC E Final Result Performing Organization Address [facility] de Phone Number [facility] [address] [facility] [place], [place] [id number] * POCT glucose (10/08/2023 3:37 PM CDT) Pathologist [facility] Glucose, POC 185 70 - 199 mg/dL Blood 10/08/2023 3:37 PM CDT 10/08/2023 3:37 PM CDT Result [facility] Bev Adames MD LAB POCT ORDERABLES - DEVIC E Final Result Performing Organization Address [facility] de Phone Number [facility] [address] [facility] [place], [place] [id number] * (ABNORMAL) eGFR (10/08/2023 1:36 PM CDT) Pathologist [facility] eGFR 10(L) >=60 mL/min/1. 73 m2 Comment: [...] interpretive data was last reviewed 2021. Blood 10/08/2023 1:36 PM CDT 10/08/2023 1:38 PM CDT Bev Adames MD LAB BLOOD ORDERABLES Final Result [facility] [address] Department [place] [address] * (ABNORMAL) Basic metabolic panel (10/08/2023 1:36 PM CDT) Sodium 141 135 - 145 mmol/L Potassium, pl 4.1 3.3 - 4.9 mmol/L [facility] Chloride 106 97 - 110 mmol/L [facility] CO2 21(L) 22 - 32 mmol/L [facility] Anion gap 14 2 - 15 mmol/L [facility] BUN 55(H) 6 - 25 mg/dL [facility] Creatinine 4.46(H) 0.60 - 1.10 mg/dL [facility] Glucose 216(H) 70 - 199 mg/dL [facility] Comment: Interpretive Data Fasting glucose >/= 126 [...] classification and Diagnosis of Diabetes Diabetes Care 2022; 46: S19-S40. Current interpretive data was last revised 2022. Calcium 8.5 8.5 - 10.3 mg/dL NILSA MCDONNELL Blood 10/08/2023 1:36 PM CDT 10/08/2023 1:38 PM CDT Bev Adames MD LAB BLOOD ORDERABLES Final Result NILSA MCDONNELL [address] Department [place] [address] * (ABNORMAL) eGFR (10/08/2023 11:55 AM CDT) eGFR 10(L) >=60 mL/min/1. 73 [...] interpretive data was last reviewed 2021. Blood 10/08/2023 11:5 5 AM CDT 10/08/2023 12:08 PM CDT us Rosa Jade NP LAB BLOOD ORDERABLES Final Res ult Performing Organization Address City/[facility]/ZIP Co de Phone Number NILSA MCDONNELL [address] [facility][1] [place] [address] * (ABNORMAL) Phosphorus (10/08/2023 11:55 AM CDT) Phosphorus, pl 4.9(H) 2.3 - 4.5 mg/dL Blood 10/08/2023 11:5 5 AM CDT 10/08/2023 12:08 PM CDT us Rosa Jade NP LAB BLOOD ORDERABLES Final Res ult Performing Organization Address [facility] Co de Phone Number NILSA MCDONNELL [address] [place] [address] * Bilirubin, direct (10/08/2023 11:55 AM CDT) Bilirubin, direct <0.2 0.1 - 0.3 mg/dL Blood 10/08/2023 11:5 5 AM CDT 10/08/2023 12:08 PM CDT us Rosa Jade CLINICAL NURSE LEADER LAB BLOOD ORDERABLES Final Res ult Performing Organization Address City/[facility]/ZIP Co de Phone Number NILSA MCDONNELL [address] [place] [address] * (ABNORMAL) Comprehensive metabolic panel (10/08/2023 11:55 AM CDT) Sodium 144 135 - 145 mmol/L Potassium, pl 3.9 3.3 - 4.9 mmol/L [facility] Chloride 109 97 - 110 mmol/L [facility] CO2 21(L) 22 - 32 mmol/L [facility] Anion gap 14 2 - 15 mmol/L [facility] BUN 52(H) 6 - 25 mg/dL [facility] Creatinine 4.42(H) 0.60 - 1.10 mg/dL [facility] Glucose 200(H) 70 - 199 mg/dL [facility] Comment: [...] interpretive data was last revised 2022. Calcium 8.3(L) 8.5 - 10.3 mg/dL [facility] Bilirubin, total 0.2 0.1 - 1.2 mg/dL [facility] Protein, pl 7.1 6.5 - 8.5 g/dL [facility] Albumin 3.2(L) 3.5 - 5.0 g/dL [facility] Alk phos 139(H) 40 - 130 Units/L [facility] ALT 9 7 - 45 Units/L [facility] AST 15 10 - 45 Units/L [facility] Blood 10/08/2023 11:5 5 AM CDT 10/08/2023 12:08 PM CDT us Rosa Jade NP LAB BLOOD ORDERABLES Final Res ult NILSA MCDONNELL [address] Department [place] [address] * Differential, auto (10/08/2023 11:55 AM CDT) Neutrophil abs 5.4 1.5 - 6.5 K/cumm Imm gran abs 0.0 0.0 - 0.1 K/cumm [facility] Lymphocyte abs 2.2 0.8 - 3.3 K/cumm [facility] Monocyte abs 0.5 0.2 - 0.8 K/cumm [facility] Eosinophil abs 0.2 0.0 - 0.5 K/cumm [facility] Basophil abs 0.0 0.0 - 0.1 K/cumm [facility] Neutrophil pct 65.1 % [facility] Comment: Interpretive Data Percent cell count reference ranges are not reported, since discordance with absolute values may lead to misinterpretation of CBC data. Current Interpretive Data was last revised on 2017. Imm gran pct 0.2 % [facility] Comment: Interpretive Data Percent cell count reference ranges are not reported, since discordance with absolute values may lead to misinterpretation of CBC data. Current Interpretive Data was last revised on 2017. Lymphocyte pct 26.3 % [facility] Comment: Interpretive Data Percent cell count reference ranges are not reported, since discordance with absolute values may lead to misinterpretation of CBC data. Current Interpretive Data was last revised on 2017. Monocyte pct 6.1 % [facility] Comment: Interpretive Data Percent cell count reference ranges are not reported, since discordance with absolute values may lead to misinterpretation of CBC data. Current Interpretive Data was last revised on 2017. Eosinophil pct 1.9 % [facility] Comment: Interpretive Data Percent cell count reference ranges are not reported, since discordance with absolute values may lead to misinterpretation of CBC data. Current Interpretive Data was last revised on 2017. Basophil pct 0.4 % [facility] Comment: Interpretive Data Percent cell count reference ranges are not reported, since discordance with absolute values may lead to misinterpretation of CBC data. Current Interpretive Data was last revised on 2017. Blood 10/08/2023 11:5 5 AM CDT 10/08/2023 12:07 PM CDT us Rosa Jade NP LAB BLOOD ORDERABLES Final Res ult NILSA MCDONNELL [address] Department [place] [address] * (ABNORMAL) Hemoglobin A1c (10/08/2023 11:55 AM CDT) [facility] Hgb A1C 8.2(H) 4.0 - 5.6 % Estimated Average Glucose 189 mg/dL NILSA MCDONNELL Comment: The ADA recommends reporting an estimated Average Glucose (eAG) with all Hemoglobin A1c results using the equation derived from a study of 507 normal and diabetic adults. ??Minority populations were underrepresented and children were not included. ?? (Diabetes Care 31:3201-8215, 2008). ??The eAG is not equivalent to a fasting glucose. Blood 10/08/2023 11:5 5 AM CDT 10/08/2023 12:07 PM CDT Bev Adames MD LAB BLOOD ORDERABLES Final Result Performing Organization Address [facility]/ZIP Co de Phone Number NILSA MCDONNELL [address] [place] [address] * Creatine kinase (CK), total (10/08/2023 11:55 AM CDT) [facility] CK 174 30 - 200 Units/L Blood 10/08/2023 11:5 5 AM CDT 10/08/2023 12:08 PM CDT Gemma Jolly MD LAB BLOOD ORDERABLE S Final Result Performing Organization Address [facility]/ZIP Co de Phone Number NILSA [address] [place] [address] * (ABNORMAL) CBC with auto differential (10/08/2023 11:55 AM CDT) [facility] WBC 8.2 3.8 - 9.9 K/cumm Hgb 8.9(L) 11.9 - 15.5 g/dL NILSA Hct 29.0(L) 35.6 - 45.5 % NILSA Plt 311 150 - 400 K/cumm [facility] MPV 10.7 9.1 - 12.3 fL [facility] RBC 3.05(L) 3.90 - 5.20 M/cumm [facility] MCV 95.1 81.3 - 96.4 fL [facility] MCH 29.2 27.1 - 33.3 pg [facility] MCHC 30.7(L) 32.3 - 35.7 g/dL [facility] RDW CV 15.2(H) 11.1 - 14.9 % [facility] RDW SD 52.8(H) 35.7 - 48.1 fL [facility] NRBC abs 0.00 0.00 - 0.01 K/cumm [facility] Blood 10/08/2023 11:5 5 AM CDT 10/08/2023 12:07 PM CDT Rosa Jade CLINICAL NURSE LEADER LAB BLOOD ORDERABLES Final Res ult Performing Organization Address [facility] Co de Phone Number [facility] [employer] [facility] [employer] [address] [address] Department [place] [address] * Magnesium (10/08/2023 11:55 AM CDT) Magnesium 1.5 1.4 - 2.5 mg/dL Blood 10/08/2023 11:5 5 AM CDT 10/08/2023 12:08 PM CDT Rosa Jade CLINICAL NURSE LEADER LAB BLOOD ORDERABLES Final Res ult Performing Organization Address [facility] Co de Phone Number [facility] [address] [facility] [place] [address] * POCT glucose (10/08/2023 8:09 AM CDT) Glucose, POC 121 70 - 199 mg/dL Blood 10/08/2023 8:09 AM CDT 10/08/2023 8:09 AM CDT Bev Adames MD LAB POCT ORDERABLES - DEVIC E Final Result Performing Organization Address [facility]/ZIP Co de Phone Number NILSA MCDONNELL [address] [place] [address] * POCT glucose (10/08/2023 5:48 AM CDT) Glucose, POC 111 70 - 199 mg/dL Blood 10/08/2023 5:48 AM CDT 10/08/2023 5:48 AM CDT Gemma Jolly MD LAB POCT ORDERABLES - DEVICE Final Result Performing Organization Address [facility] Co de Phone Number CARLOS ENRIQUEELLEN MCDONNELL [address] [place] [address] * POCT glucose (10/08/2023 2:40 AM CDT) Glucose, POC 78 70 - 199 mg/dL Blood 10/08/2023 2:40 AM CDT 10/08/2023 2:40 AM CDT Gemma Jolly MD LAB POCT ORDERABLES - DEVICE Final Result Performing Organization Address [facility] Co de Phone Number NILSA MCDONNELL [address] [place] [address] * POCT glucose (10/07/2023 8:28 PM CDT) Glucose, POC 162 70 - 199 mg/dL Blood 10/07/2023 8:28 PM CDT 10/07/2023 8:28 PM CDT Gemma Jolly MD LAB POCT ORDERABLES - DEVICE Final Result Performing Organization Address City/[facility] Co de Phone Number NILSA MCDONNELL [address] [place] [address] * (ABNORMAL) POCT glucose (10/07/2023 5:20 PM CDT) Glucose, POC 235(H) 70 - 199 mg/dL Blood 10/07/2023 5:20 PM CDT 10/07/2023 5:20 PM CDT Gemma Jolly MD LAB POCT ORDERABLES - DEVICE Final Result Performing Organization Address [facility]/ZIP Co de Phone Number [facility] [address] [address] [place] [address] * POCT glucose (10/07/2023 9:17 AM CDT) Glucose, POC 175 70 - 199 mg/dL Blood 10/07/2023 9:17 AM CDT 10/07/2023 9:17 AM CDT Alejandro Guillaume MD LAB POCT ORDERABLES - DEVICE Final Result Performing Organization Address [facility] Co de Phone Number [facility] [address] [address] [place] [address] * (ABNORMAL) Troponin T high-sensitivity 2-hour (10/07/2023 4:39 AM CDT) Pathologist [facility] Trop T hs 41(H) <=14 ng/L Comment: Interpretive Data For further hscTnT resources including the diagnostic algorithm and an aid in interpretation, copy and paste this link: https://nrl.testcatalog.org/show/hsTrop Current Interpretive Data last revised 2020. Trop T hs delta 3 ng/L [facility] Trop T hs interp Insignificant [facility] Blood 10/07/2023 4:39 AM CDT 10/07/2023 4:39 AM CDT Trisha Ayers MD LAB BLOOD ORDERABLES Final Re sult Performing Organization Address [facility]/ZIP Co de Phone Number [facility] [address] [place] [address] * ECG 12 lead (10/07/2023 2:14 AM CDT) 10/07/2023 2:14 AM CDT Narrative [facility] - 10/07/2023 11:51 AM CDT Vent Rate: 74 bpm RR Interval: 801 msec OK Interval: 163 msec QRS Duration: 72 msec QT Interval: 389 msec QTC Interval: 417 msec P-R-T [place]: 62 - 20 - 207 degrees IMPRESSION: SINUS RHYTHM NONSPECIFIC T-WAVE ABNORMALITY Electronically Signed By: Ilan Ghotra MD, [facility] Trisha Ayers MD ECG ORDERABLES Final Result Performing Organization Address [facility] de Phone Number [facility] [facility] * (ABNORMAL) Troponin T high-sensitivity series (baseline, 2hr, 4hr, 6hr) (10/07/2023 1:59 AM CDT) Trop T hs 38(H) <=14 ng/L Comment: Interpretive Data For further hscTnT resources including the diagnostic algorithm and an aid in interpretation, copy and paste this link: https://nrl.testcatalog.org/show/hsTrop Current Interpretive Data last revised 2020. Blood 10/07/2023 1:59 AM CDT 10/07/2023 2:06 AM CDT Trisha Ayers MD LAB BLOOD ORDERABLES Final Re sult Performing Organization Address [facility] de Phone Number NILSA [address] [place] [address] * (ABNORMAL) eGFR (10/06/2023 10:25 PM CDT) eGFR 11(L) >=60 mL/min/1. 73 m2 [...] interpretive data was last reviewed 2021. Blood 10/06/2023 10:2 5 PM CDT 10/06/2023 10:30 PM CDT Trisha Ayers MD LAB BLOOD ORDERABLES Final Re sult NILSA [address] [place] [address] * Differential, auto (10/06/2023 10:25 PM CDT) Neutrophil abs 6.1 1.5 - 6.5 K/cumm Imm gran abs 0.0 0.0 - 0.1 K/cumm [facility] Lymphocyte abs 2.6 0.8 - 3.3 K/cumm [facility] Monocyte abs 0.6 0.2 - 0.8 K/cumm [facility] Eosinophil abs 0.2 0.0 - 0.5 K/cumm [facility] Basophil abs 0.1 0.0 - 0.1 K/cumm [facility] Neutrophil pct 63.8 % [facility] Comment: Interpretive Data Percent cell count reference ranges are not reported, since discordance with absolute values may lead to misinterpretation of CBC data. Current Interpretive Data was last revised on 2017. Imm gran pct 0.4 % [facility] Comment: Interpretive Data Percent cell count reference ranges are not reported, since discordance with absolute values may lead to misinterpretation of CBC data. Current Interpretive Data was last revised on 2017. Lymphocyte pct 26.8 % [facility] Comment: Interpretive Data Percent cell count reference ranges are not reported, since discordance with absolute values may lead to misinterpretation of CBC data. Current Interpretive Data was last revised on 2017. Monocyte pct 6.0 % [facility] Comment: Interpretive Data Percent cell count reference ranges are not reported, since discordance with absolute values may lead to misinterpretation of CBC data. Current Interpretive Data was last revised on 2017. Eosinophil pct 2.5 % [facility] Comment: Interpretive Data Percent cell count reference ranges are not reported, since discordance with absolute values may lead to misinterpretation of CBC data. Current Interpretive Data was last revised on 2017. Basophil pct 0.5 % [facility] Comment: Interpretive Data Percent cell count reference ranges are not reported, since discordance with absolute values may lead to misinterpretation of CBC data. Current Interpretive Data was last revised on 2017. Blood 10/06/2023 10:2 5 PM CDT 10/06/2023 10:30 PM CDT us Trisha Ayers MD LAB BLOOD ORDERABLES Final Re sult [facility] [address] [address] [place] [address] * (ABNORMAL) Pro B-type natriuretic peptide (10/06/2023 10:25 PM CDT) NT-proBNP 607(H) <=300 pg/mL Comment: Interpretive Comments: A. Dyspnea [...] 225. Interpretive Data Last Revised Date: 2018. Blood 10/06/2023 10:2 5 PM CDT 10/06/2023 10:30 PM CDT us Trisha Ayers MD LAB BLOOD ORDERABLES Final Re sult NILSA [address] [place] [address] * (ABNORMAL) Comprehensive metabolic panel (10/06/2023 10:25 PM CDT) Sodium 139 135 - 145 mmol/L Potassium, pl 4.4 3.3 - 4.9 mmol/L [facility] Comment:Hemolysis present. R esults may be affected. Chloride 108 97 - 110 mmol/L [facility] CO2 18(L) 22 - 32 mmol/L [facility] Anion gap 13 2 - 15 mmol/L [facility] BUN 54(H) 6 - 25 mg/dL [facility] Creatinine 4.09(H) 0.60 - 1.10 mg/dL [facility] Glucose 285(H) 70 - 199 mg/dL [facility] Comment: [...] interpretive data was last revised 2022. Calcium 8.0(L) 8.5 - 10.3 mg/dL [facility] Bilirubin, total 0.2 0.1 - 1.2 mg/dL [facility] Protein, pl 6.9 6.5 - 8.5 g/dL [facility] Albumin 3.0(L) 3.5 - 5.0 g/dL [facility] Alk phos 154(H) 40 - 130 Units/L [facility] ALT 12 7 - 45 Units/L [facility] AST 26 10 - 45 Units/L [facility] Comment:Hemolysis present. R esults may be affected. Blood 10/06/2023 10:2 5 PM CDT 10/06/2023 10:30 PM CDT us Trisha Ayers MD LAB BLOOD ORDERABLES Final Re sult NILSA [id number] [address] [place] [address] * (ABNORMAL) CBC with auto differential (10/06/2023 10:25 PM CDT) WBC 9.6 3.8 - 9.9 K/cumm Hgb 9.2(L) 11.9 - 15.5 g/dL [facility] Hct 29.1(L) 35.6 - 45.5 % [facility] Plt 280 150 - 400 K/cumm [facility] MPV 10.8 9.1 - 12.3 fL [facility] RBC 3.05(L) 3.90 - 5.20 M/cumm [facility] MCV 95.4 81.3 - 96.4 fL [facility] MCH 30.2 27.1 - 33.3 pg [facility] MCHC 31.6(L) 32.3 - 35.7 g/dL [facility] RDW CV 15.3(H) 11.1 - 14.9 % [facility] RDW SD 53.2(H) 35.7 - 48.1 [facility]L [facility] NR[facility] abs 0.00 0.00 - 0.01 K/cumm [facility] Blood (Blood, Venous) 10/06/2023 10:25 PM CDT 10/06/2023 10:30 PM CDT Trisha Ayers MD LAB BLOOD ORDERABLES Final Re sult NILSA [id number] [address] Department [place] [address] documented in this encounter Visit Diagnoses Diagnosis Leg swelling Swelling of limb Acute renal failure superimposed on chronic kidney disease, unspecified acute renal failure type, unspecified CKD stage (HCC) Diabetes mellitus with hyperglycemia (HCC) Dyslipidemia Other and unspecified hyperlipidemia Acute on chronic diastolic congestive heart failure (CMS/HCC) (HCC) Acute kidney injury superimposed on CKD (HCC) Type 2 diabetes mellitus without complication, unspecified whether usp insulin use (HCC) Leg swelling Swelling of limb Diabetic neuropathy (HCC) Type II or unspecified type diabetes mellitus with neurological manifestations, not stated as uncontrolled Type 2 diabetes mellitus with diabetic neuropathy, with long-term current use of insulin (HCC) Primary hypertension Unspecified essential hypertension Gastroesophageal reflux disease without esophagitis Esophageal reflux Acute on chronic diastolic congestive heart failure (CMS/HCC) (HCC) Anemia in stage 4 chronic kidney disease (HCC) Schizoaffective disorder, bipolar type (CMS/HCC) (HCC) Schizoaffective disorder, unspecified condition Mixed hyperlipidemia Acute kidney injury superimposed on CKD (HCC) Diabetes mellitus with hyperglycemia (HCC) Dyslipidemia Other and unspecified hyperlipidemia Alzheimer's dementia (HCC) Anemia, unspecified type Gastritis without bleeding, unspecified chronicity, unspecified gastritis type documented in this encounter Admitting Diagnoses Diagnosis Leg swelling Swelling of limb documented in this encounter Administered Medications Inactive Administered Medications - up to 3 most recent administrations Medication Order MAR Action Action Date Dose Rate Site acetaminophen (TYLENOL) tablet 650 mg 650 mg, oral, Every 6 hours PRN, 1st line for pain, Starting on Thu10/07/23 at 1552 Given 10/19/2023 8:50 PM CDT 650 mg Given 10/18/2023 12:26 PM CDT 650 mg Given 10/12/2023 11:11 AM CDT 650 mg albumin 25 % bottle 25 g 25 g, intravenous, As needed, hypotension, Starting on Thu10/16/23 at 0943, For 3 doses, Dialysis, To be administered only in dialysis. Not to exceed 25 gm. (Second priority), BP threshold for treatment: SBP, Systolic Blood Pressure less than (mmHg): 85, Indications: Intradialytic HypotensionIndications:Intradialytic Hypotension amLODIPine (NORVASC) tablet 10 mg 10 mg, oral, Once, On Thu10/07/23 at 1357, For 1 dose Given 10/07/2023 1:58 PM CDT 10 mg amLODIPine (NORVASC) tablet 10 mg 10 mg, oral, Daily, First dose (after last modification) on Thu10/11/23 at 0915 Given 10/15/2023 12:59 PM CDT 10 mg Given 10/14/2023 9:07 AM CDT 10 mg Given 10/13/2023 9:02 AM CDT 10 mg amLODIPine (NORVASC) tablet 5 mg 5 mg, oral, Daily, First dose on Thu10/10/23 at 1130 Given 10/10/2023 1:12 PM CDT 5 mg amLODIPine (NORVASC) tablet 5 mg 5 mg, oral, Daily, First dose (after last modification) on Thu10/16/23 at 0900 Given 10/17/2023 8:24 AM CDT 5 mg Given 10/16/2023 1:20 PM CDT 5 mg atorvastatin (LIPITOR) tablet 20 mg 20 mg, oral, Nightly, First dose on Thu10/07/23 at 2100 Given 10/21/2023 9:08 PM CDT 20 mg Given 10/20/2023 9:53 PM CDT 20 mg Given 10/19/2023 8:30 PM CDT 20 mg benztropine (COGENTIN) tablet 1.5 mg 1.5 mg, oral, 2 times daily, First dose on Thu10/07/23 at 2100 Given 10/13/2023 9:02 AM CDT 1.5 mg Given 10/12/2023 9:19 PM CDT 1.5 mg Given 10/12/2023 11:10 AM CDT 1.5 mg benztropine (COGENTIN) tablet 1.5 mg 1.5 mg, oral, Nightly, First dose (after last modification) on Thu10/14/23 at 2100 Given 10/21/2023 9:08 PM CDT 1.5 mg Given 10/20/2023 9:53 PM CDT 1.5 mg Given 10/19/2023 8:28 PM CDT 1.5 mg calcium acetate(phosphat bind) (PHOSLO) capsule 1,334 mg 1,334 mg, oral, 3 times daily with meals, First dose on Thu10/15/23 at 1330, Take with food Given 10/15/2023 6:45 PM CDT 1,334 mg Given 10/15/2023 2:05 PM CDT 1,334 mg calcium acetate(phosphat bind) (PHOSLO) capsule 667 mg 667 mg, oral, 3 times daily with meals, First dose on Thu10/16/23 at 0800, Take with food Given 10/22/2023 12:39 PM CDT 667 mg Given 10/21/2023 6:19 PM CDT 667 mg Given 10/21/2023 12:49 PM CDT 667 mg dextrose (D10W) 10% bolus 250 mL 250 mL, intravenous, at 1,000 mL/hr, Administer over 15 Minutes, Every 15 min PRN, blood glucose less than 70 mg/dL and UNABLE to swallow/take PO glucose/juice., Starting on Thu10/07/23 at 1554, After treatment for hypoglycemia, recheck BG followed by treatment every 15 minutes until the BG is greater than 100 mg/dL. Then check BG 1 hour post treatment. If BG is less than 100 mg/dL, repeat Q15 minute BG checks and treatment. Call MD for each episode of hypoglycemia., Indications: hypoglycemic disorderIndications:hypoglycemi c disorder dextrose oral liquid liquid 15 g 15 g, oral, Every 15 min PRN, low blood sugar, blood glucose less than 70 mg/dL, Starting on Thu10/07/23 at 1554, If patient is alert and able to [...] for each episode of hypoglycemia., Indications: hypoglycemic disorderIndications:hypoglycemi c disorder enoxaparin (LOVENOX) syringe 30 mg 30 mg, subcutaneous, Daily (for enoxaparin), First dose on Thu10/07/23 at 2100, Indications: Deep Vein Thrombosis PreventionIndications:Deep Vein Thrombosis Prevention Given 10/21/2023 9:07 PM CDT 30 mg Left Lower Abdomen Given 10/20/2023 9:52 PM CDT 30 mg Le ft Upper Abdomen Given 10/19/2023 8:26 PM CDT 30 mg Le ft Lower Abdomen famotidine (PEPCID) tablet 10 mg 10 mg, oral, Daily, First dose on Thu10/07/23 at 1553 Given 10/21/2023 9:03 AM CDT 10 mg Given 10/20/2023 8:06 AM CDT 10 mg Given 10/19/2023 8:25 AM CDT 10 mg ferrous sulfate delayed release tablet 65 mg of elemental iron 65 mg of elemental iron, oral, 2 times daily, First dose on Thu10/07/23 at 2100, 325 MG OF FERROUS SULFATE = 65 MG OF ELEMENTAL IRON, Indications: Iron Deficiency AnemiaIndications:Iron Deficiency Anemia Given 10/21/2023 9:08 PM CDT 65 mg of elemental iron Given 10/21/2023 9:03 AM CDT 65 mg of elemental iron Given 10/20/2023 9:53 PM CDT 65 mg of elemental iron fluticasone propionate (FLONASE) 50 mcg/actuation nasal spray 2 spray 2 spray, each nostril, Daily, First dose on Thu10/07/23 at 1553 Given 10/21/2023 9:04 AM CDT 2 sprays Given 10/20/2023 8:07 AM CDT 2 sprays Given 10/19/2023 8:26 AM CDT 2 sprays furosemide (LASIX) 10 mg/mL injection 40 mg 40 mg, intravenous, Once, On Thu10/07/23 at 1135, For 1 dose, For IV push: administer doses < 160 mg at a rate of 20 -40 mg/min. Doses >/= 160 mg should be administered no faster than 4 mg/min. Room temperature only Given 10/07/2023 11: 46 AM CDT 40 mg furosemide (LASIX) 10 mg/mL injection 40 mg 40 mg, intravenous, 2 times daily (for diuretics), First dose (after last reorder) on Thu10/07/23 at 1600, For IV push: administer doses < 160 mg at a rate of 20 -40 mg/min. Doses >/= 160 mg should be administered no faster than 4 mg/min. Room temperature only, On hold since 10/10/2023 at 1645 until manually unheld Given 10/09/2023 6:04 PM CDT 40 mg Given 10/09/2023 8:21 AM CDT 40 mg Given 10/08/2023 3:51 PM CDT 40 mg glucagon injection 1 mg 1 mg, intramuscular, Every 30 min PRN, low blood sugar, blood glucose less than 70 mg/dL AND no IV access AND unable to take PO glucose/juice., Starting on Thu10/07/23 at 1554, After Glucagon is administered, position patient on [...] 1 mL SWFI. Use immediately following reconstitution. haloperidol (HALDOL) injection 5 mg 5 mg, intravenous, Once, On Kellie 10/08/23 at 2345, For 1 dose, If administered IV push, administer over 5 min for adults Given 10/08/2023 11:13 PM CDT 5 mg insulin glargine (LANTUS, SEMGLEE) 100 unit/mL injection 15 Units 15 Units (rounded from 14.525 Units = 0.25 Units/kg ? 58.1 kg), subcutaneous, Nightly, First dose on Thu10/07/23 at 2100, Do not hold if NPO. Do not mix with other insulins, Indications: Diabetes MellitusIndications:Diabetes Mellitus Given 10/21/2023 9:07 PM CDT 15 Units Left Lower Abdomen Given 10/20/2023 9:52 PM CDT 15 Units Le ft Lower Abdomen Given 10/19/2023 8:27 PM CDT 15 Units Ri ght Upper Abdomen insulin lispro (HumaLOG, ADMELOG) 100 unit/mL injection 0-10 Units 0-10 Units, subcutaneous, 3 times daily with meals, First dose on Thu10/07/23 at 1800, Blood glucose mg/dL: 149 or less: No [...] NPO Status, Indications: Diabetes MellitusIndications:Diabetes Mellitus Given 10/22/2023 12:39 PM CDT 6 Units Left Lower Abdomen Given 10/20/2023 6:03 PM CDT 2 Units Ri ght Lower Abdomen Given 10/19/2023 5:17 PM CDT 4 Units Le ft Lower Abdomen insulin lispro (HumaLOG, ADMELOG) 100 unit/mL injection 0-5 Units 0-5 Units, subcutaneous, Nightly, First dose on Thu10/07/23 at 2100, Blood glucose mg/dL: 149 or less: No [...] NPO Status, Indications: Diabetes MellitusIndications:Diabetes Mellitus Given 10/21/2023 9:15 PM CDT 1 Units Right Lower Abdomen Given 10/19/2023 8:26 PM CDT 2 Units Ri ght Lower Abdomen Given 10/16/2023 9:28 PM CDT 1 Units Le ft Lower Abdomen insulin lispro (HumaLOG, ADMELOG) 100 unit/mL injection 5 Units 5 Units (rounded from 4.8223 Units = 0.083 Units/kg ? 58.1 kg), subcutaneous, 3 times daily with meals, First dose on Thu10/07/23 at 1800, If BG greater than or equal to [...] 70 mg/dL., Indications: Diabetes MellitusIndications:Diabetes Mellitus Given 10/22/2023 12:39 PM CDT 5 Units Left Lower Abdomen Given 10/21/2023 6:20 PM CDT 5 Units Ri ght Upper Arm Given 10/21/2023 12:49 PM CDT 5 Units R ight Upper Arm lidocaine (PF) (XYLOCAINE) 10 mg/mL (1 %) preservative free injection As needed, Starting on Kellie 10/15/23 at 0905, Intra-Procedure (IR), Indications: Administration of Local AnesthesiaIndications:Administrat ion of Local Anesthesia Given 10/15/2023 9:08 AM CDT 10 mL Other (Comment) Given 10/15/2023 9:05 AM CDT 5 mL Ot her (Comment) metoprolol tartrate (LOPRESSOR) immediate release split tablet 6.25 mg 6.25 mg, oral, 2 times daily, First dose (after last modification) on 10/17/23 at 2100 Given 10/21/2023 9:08 PM CDT 6.25 mg Given 10/21/2023 9:03 AM CDT 6.25 mg Given 10/20/2023 9:53 PM CDT 6.25 mg metoprolol tartrate (LOPRESSOR) immediate release tablet 25 mg 25 mg, oral, 2 times daily, First dose on Thu10/08/23 at 2100 Given 10/17/2023 8:24 AM CDT 25 mg Given 10/16/2023 9:26 PM CDT 25 mg Given 10/16/2023 1:20 PM CDT 25 mg OLANZapine (ZyPREXA) 10 mg injection - ADS Override Pull Starting on 10/10/23 at 0034, For 1 dose, Created by cabinet override Reconstitute 10 mg vial with 2.1 mL SWFI. Resulting solution is ~5 mg/mL. Use immediately (within 1 hour) following reconstitution. Given 10/10/2023 12:36 AM CDT 5 mg OLANZapine (ZyPREXA) 2.5 mg in sterile water 0.5 mL (5 mg/mL) syringe 2.5 mg, intramuscular, Every 12 hours PRN, agitation, psychosis, Starting on Thu10/13/23 at 1159, If unable to take PO Reconstitute 10 mg vial with 2.1 mL SWFI. Resulting solution is ~5 mg/mL. Use immediately (within 1 hour) following reconstitution. OLANZapine (ZyPREXA) 5 mg in sterile water 1 mL (5 mg/mL) syringe 5 mg, intramuscular, Once, On 10/10/23 at 0115, For 1 dose, Reconstitute 10 mg vial with 2.1 mL SWFI. Resulting solution is ~5 mg/mL. Use immediately (within 1 hour) following reconstitution. Given 10/10/2023 7:27 PM CDT 5 mg Left Deltoid OLANZapine (ZyPREXA) tablet 2.5 mg 2.5 mg, oral, 2 times daily PRN, agitation, psychosis, Starting on Thu10/13/23 at 1200 ondansetron (ZOFRAN) injection 4 mg 4 mg, intravenous, Administer over 2 Minutes, Every 6 hours PRN, nausea, vomiting, Starting on Thu10/07/23 at 1553 polyethylene glycol (MIRALAX) packet 17 g 17 g, oral, Daily, First dose on Thu10/16/23 at 1130, Indications: constipationIndications:constipatio n Given 10/21/2023 9:04 AM CDT 17 g Given 10/20/2023 8:06 AM CDT 17 g Given 10/19/2023 8:25 AM CDT 17 g ramelteon (ROZEREM) tablet 8 mg 8 mg, oral, Nightly PRN, sleep, Starting on Thu10/08/23 at 2254, Indications: Sleep-Onset InsomniaIndications:Sleep-Onset Insomnia Given 10/21/2023 9:08 PM CDT 8 m g Given 10/13/2023 10:53 PM CDT 8 mg risperiDONE (RisperDAL) tablet 1 mg 1 mg, oral, Nightly, First dose (after last modification) on Thu10/13/23 at 2100 Given 10/21/2023 9:08 PM CDT 1 mg Given 10/20/2023 9:53 PM CDT 1 mg Given 10/19/2023 8:29 PM CDT 1 mg risperiDONE (RisperDAL) tablet 2 mg 2 mg, oral, Nightly, First dose on Thu10/07/23 at 2100 Given 10/12/2023 9:19 PM CDT 2 mg Given 10/11/2023 9:51 PM CDT 2 mg Given 10/09/2023 8:50 PM CDT 2 mg documented in this encounter Discontinued Medications Medication Sig Discontinue Reason Start Date End Da te amLODIPine (NORVASC) 5 mg tabletIndications:Prima ry hypertension TAKE 1 TABLET(5 MG) BY MOUTH DAILY 10/05/2023 10/07/2023 FeroSuL 325 mg (65 mg iron) tabletIndications:Iron deficiency anemia, unspecified iron deficiency anemia type TAKE 1 TABLET BY MOUTH DAILY WITH BREAKFAST 09/20/2023 10/07/2023 insulin lispro (HumaLOG, ADMELOG) 100 unit/mL pen for injectionIndications:Ty pe 2 diabetes mellitus with diabetic neuropathy, with long-term current use of insulin (HCC) Inject 0-12 Units under the skin 3 (three) times a day before meals per sliding scale --> BG 0-140 = 0 units BG 141-174 = 2 units BG 175-199 = 4 units BG 200-249 = 6 units BG 250-299 = 8 units BG 300-349 = 10 units BG 350-400 = 12 units BG >400 = call 03/24/2023 10/07/2023 [email or web address], reg,med miscIndications:Periphe ral edema Wear as much as possible 05/28/2021 10/07/2023 LANTUS 100 unit/mL (3 mL) pen for injectionIndications:Ty pe 2 diabetes mellitus with diabetic neuropathy, with long-term current use of insulin (HCC) Inject 18 Units under the skin nightly Stop Taking at Discharge 09/14/2023 10/22/2023 amLODIPine (NORVASC) 10 mg tablet Take 1 tablet (10 mg total) by mouth nightly Stop Taking at Discharge 10/05/2023 10/22/2023 risperiDONE (RisperDAL) 2 mg tablet Take 1 tablet (2 mg total) by mouth nightly Stop Taking at Discharge 09/13/2023 10/22/2023 documented as of this encounter Historical Medications * This list may reflect changes made after this encounter. insulin lispro (HumaLOG, ADMELOG) 100 unit/mL vial for injection Inject 4 Units under the skin 3 (three) times a day before meals Gets 4 units at baseline then 1 unit for every 50 over 150 famotidine (PEPCID) 10 mg tablet Take 1 tablet (10 mg total) by mouth daily 4 ferrous sulfate 325 mg (65 mg of elemental iron) tablet Take 1 tablet (65 mg of elemental iron total) by mouth 2 (two) times a day 4 risperiDONE (RisperDAL) 2 mg tablet Take 1 tablet (2 mg total) by mouth nightly 09/13/2023 4 amLODIPine (NORVASC) 10 mg tablet Take 1 tablet (10 mg total) by mouth nightly 10/05/2023 4 added in this encounter Active and Recently Administered Medications Times are shown in CDT. Scheduled Medication Order 10/20/2023 10/21/2023 10/22/2023 atorvastatin (LIPITOR) tablet 20 mg 20 mg, oral, Nightly, First dose on Thu10/07/23 at 2100 2153 (Given - Provider: Melania Preciado RN) 2108 (Given - Provider: Jo Maynard RN) benztropine (COGENTIN) tablet 1.5 mg 1.5 mg, oral, Nightly, First dose (after last modification) on Thu10/14/23 at 2100 2153 (Given - Provider: Melania Preciado RN) 210 (Given - Provider: Jo Maynard RN) calcium acetate(phosphat bind) (PHOSLO) capsule 667 mg 667 mg, oral, 3 times daily with meals, First dose on Thu10/16/23 at 0800, Take with food 0807 (Given - Provider: Alessandra Cervantes LPN)1315 (Given - Provider: Alessandra Cervantes LPN)1802 (Given - Provider: Alessandra Cervantes LPN) 0903 (Given - Provider: Lulú Jacome RN)1249 (Given - Provider: Lulú Jacome RN)1819 (Given - Provider: Lulú Jacome RN) 0800 (Due)1239 (Given - Provider: Gregory Lynch RN) enoxaparin (LOVENOX) syringe 30 mg 30 mg, subcutaneous, Daily (for enoxaparin), First dose on Thu10/07/23 at 2100, Indications: Deep Vein Thrombosis Prevention 215 (Given - Provider: Melania Preciado RN) 2106 (Given - Provider: Jo Maynard RN) famotidine (PEPCID) tablet 10 mg 10 mg, oral, Daily, First dose on Thu10/07/23 at 1553 0806 (Given - Provider: Alessandra Cervantes LPN) 0903 (Given - Provider: Lulú Jacome RN) 0900 (Due) ferrous sulfate delayed release tablet 65 mg of elemental iron 65 mg of elemental iron, oral, 2 times daily, First dose on Thu10/07/23 at 2100, 325 MG OF FERROUS SULFATE = 65 MG OF ELEMENTAL IRON, Indications: Iron Deficiency Anemia 0806 (Given - Provider: Alessandra Cervantes LPN)215 (Given - Provider: Melania Preciado RN) 0903 (Given - Provider: Lulú Jacome RN)2107 (Given - Provider: Jo Maynard RN) 0900 (Due) fluticasone propionate (FLONASE) 50 mcg/actuation nasal spray 2 spray 2 spray, each nostril, Daily, First dose on Thu10/07/23 at 1553 0807 (Given - Provider: Alessandra Cervantes LPN) 0904 (Given - Provider: Lulú Jacome RN) 0900 (Due) insulin glargine (LANTUS, SEMGLEE) 100 unit/mL injection 15 Units 15 Units (rounded from 14.525 Units = 0.25 Units/kg ? 58.1 kg), subcutaneous, Nightly, First dose on Thu10/07/23 at 2100, Do not hold if NPO. Do not mix with other insulins, Indications: Diabetes Mellitus 2151 (Given - Provider: Melania Preciado RN) 2106 (Given - Provider: Jo Maynard RN) insulin lispro (HumaLOG, ADMELOG) 100 unit/mL injection 0-10 Units 0-10 Units, subcutaneous, 3 times daily with meals, First dose on Thu10/07/23 at 1800, Blood glucose mg/dL: 149 or less: No insulin 150-199: add 2 unit 200-249: add 4 units 250-299: add 6 units 300-349: add 8 units and notify physician for adjustment of insulin orders. 350-399: add 10 units and notify physician for adjustment of insulin orders. Over 400: Notify physician for adjustment of insulin orders. Do NOT hold for NPO Status, Indications: Diabetes Mellitus 0808 (Not Given - Provider: Alessandra Cervantes LPN - Reason: Order parameters not met)1315 (Not Given - Provider: Alessandra Cervantes LPN - Reason: Order parameters not met)1803 (Given - Provider: Alessandra Cervantes LPN) 0904 (Not Given - Provider: Lulú Jacome RN - Reason: Order parameters not met)1250 (Not Given - Provider: Lulú Jacome RN - Reason: Order parameters not met)1820 (Not Given - Provider: Lulú Jacome RN - Reason: Order parameters not met) 0800 (Due)1239 (Given - Provider: Gregory Lynch RN) insulin lispro (HumaLOG, ADMELOG) 100 unit/mL injection 0-5 Units 0-5 Units, subcutaneous, Nightly, First dose on Thu10/07/23 at 2100, Blood glucose mg/dL: 149 or less: No insulin 150-199: add 1 unit 200-249: add 2 units 250-299: add 3 units 300-349: add 4 units and notify physician for adjustment of insulin orders. 350-399: add 5 units and notify physician for adjustment of insulin orders. Over 400: Notify physician for adjustment of insulin orders. Do NOT hold for NPO Status, Indications: Diabetes Mellitus 2152 (Not Given - Provider: Melania Preciado RN - Reason: Order parameters not met) 2114 (Given - Provider: Jo Maynard RN) insulin lispro (HumaLOG, ADMELOG) 100 unit/mL injection 5 Units 5 Units (rounded from 4.8223 Units = 0.083 Units/kg ? 58.1 kg), subcutaneous, 3 times daily with meals, First dose on Thu10/07/23 at 1800, If BG greater than or equal to [...] less than 70 mg/dL., Indications: Diabetes Mellitus 0807 (Given - Provider: Alessandra Cervantes LPN)1314 (Given - Provider: Alessandra Cervantes LPN)1802 (Given - Provider: Alessandra Cervantes LPN) 0903 (Given - Provider: Lulú Jacome RN)1249 (Given - Provider: Lulú Jacome RN)1820 (Given - Provider: Lulú Jacome RN) 0800 (Due)1239 (Given - Provider: Gregory Lynch RN) metoprolol tartrate (LOPRESSOR) immediate release split tablet 6.25 mg 6.25 mg, oral, 2 times daily, First dose (after last modification) on Thu10/17/23 at 2100 0806 (Given - Provider: Alessandra Cervantes LPN)2153 (Given - Provider: Melania Preciado RN) 09 (Given - Provider: Lulú Jacome RN)210 (Given - Provider: Jo Maynard RN) 0900 (Due) polyethylene glycol (MIRALAX) packet 17 g 17 g, oral, Daily, First dose on Thu10/16/23 at 1130, Indications: constipation 0806 (Given - Provider: Alessandra Cervantes LPN) 0904 (Given - Provider: Lulú Jacome RN) 0900 (Due) risperiDONE (RisperDAL) tablet 1 mg 1 mg, oral, Nightly, First dose (after last modification) on Thu10/13/23 at 2100 2153 (Given - Provider: Melania Preciado RN) 2107 (Given - Provider: Jo Maynard RN) PRN Medication Order 10/20/2023 10/21/2023 10/22/2023 acetaminophen (TYLENOL) tablet 650 mg 650 mg, oral, Every 6 hours PRN, 1st line for pain, Starting on Thu10/07/23 at 1552 albumin 25 % bottle 25 g 25 g, intravenous, As needed, hypotension, Starting on Thu10/16/23 at 0943, For 3 doses, Dialysis, To be administered only in dialysis. Not to exceed 25 gm. (Second priority), BP threshold for treatment: SBP, Systolic Blood Pressure less than (mmHg): 85, Indications: Intradialytic Hypotension dextrose (D10W) 10% bolus 250 mL(Linked Group 1) 250 mL, intravenous, at 1,000 mL/hr, Administer over 15 Minutes, Every 15 min PRN, blood glucose less than 70 mg/dL and UNABLE to swallow/take PO glucose/juice., Starting on Thu10/07/23 at 1554, After treatment for hypoglycemia, recheck BG followed by treatment every 15 minutes until the BG is greater than 100 mg/dL. Then check BG 1 hour post treatment. If BG is less than 100 mg/dL, repeat Q15 minute BG checks and treatment. Call MD for each episode of hypoglycemia., Indications: hypoglycemic disorder dextrose oral liquid liquid 15 g(Linked Group 1) 15 g, oral, Every 15 min PRN, low blood sugar, blood glucose less than 70 mg/dL, Starting on Thu10/07/23 at 1554, If patient is alert and able to [...] unable to take PO glucose/juice., Starting on Thu10/07/23 at 1554, After Glucagon is administered, position patient on [...] 1 mL SWFI. Use immediately following reconstitution. OLANZapine (ZyPREXA) 2.5 mg in sterile water 0.5 mL (5 mg/mL) syringe 2.5 mg, intramuscular, Every 12 hours PRN, agitation, psychosis, Starting on Thu10/13/23 at 1159, If unable to take PO Reconstitute 10 mg vial with 2.1 mL SWFI. Resulting solution is ~5 mg/mL. Use immediately (within 1 hour) following reconstitution. OLANZapine (ZyPREXA) tablet 2.5 mg 2.5 mg, oral, 2 times daily PRN, agitation, psychosis, Starting on Thu10/13/23 at 1200 ondansetron (ZOFRAN) injection 4 mg 4 mg, intravenous, Administer over 2 Minutes, Every 6 hours PRN, nausea, vomiting, Starting on Thu10/07/23 at 1553 ramelteon (ROZEREM) tablet 8 mg 8 mg, oral, Nightly PRN, sleep, Starting on Thu10/08/23 at 2254, Indications: Sleep-Onset Insomnia 2107 (Given - Provider: Jo Maynard RN) Linked Groups Order Group 1: dextrose oral liquid liquid 15 gJump to med 15 g, oral, Every 15 min PRN, low blood sugar, blood glucose less than 70 mg/dL, Starting on Thu10/07/23 at 1554, If patient is alert and able to [...] UNABLE to swallow/take PO glucose/juice., Starting on Thu10/07/23 at 1554, After treatment for hypoglycemia, recheck BG followed [...] Date albumin 25 % bottle 25 g 2 10/16/2023 heparin 1,000 unit/mL inject ion 1,500 Units 2 10/16/2023 heparin 1,000 unit/mL injection 1.5-6.9 mL 2 10/16/2023 heparin 1,000 unit/mL injection 500 Units 2 10/16/2023 OLANZapine (ZyPREXA) 2.5 mg in sterile water 0.5 mL (5 mg/mL) syringe 1 10/13/2023 OLANZapine (ZyPREXA) tablet 2.5 mg 1 2023 haloperidol (HALDOL) injection 5 mg 1 10/09 amLODIPine (NORVASC) tablet 10 mg 2 024 dextrose (D10W) 10% bolus 250 mL 1 10/07/19 24 dextrose oral liquid liquid 15 g 1 10/07/19 24 glucagon injection 1 mg 1 10/07/2023 ondansetron (ZOFRAN) injection 4 mg 1 10/06 Lab Orders Without Results Count Last Ordered D ate First Ordered Date POCT GLUCOSE DEVICE 110 10/22/2023 10/06/19 24 Diet Count Last Ordered Date First Orde red Date ADULT DISCHARGE DIET 1 10/22/2023 Nursing Count Last Ordered Date First Orde red Date DISCHARGE ACTIVITY 1 10/22/2023 FOLLOW UP WITH ESTABLISHED PROVIDER 2 10/21 Consult Count Last Ordered Date First Orde red Date CONSULT TO BEHAVIORAL HEALTH [facility] 1 024 IP CONSULT TO PSYCHIATRY 1 10/12/2023 IP CONSULT TO NEPHROLOGY 1 10/10/2023 IP CONSULT TO CARDIOLOGY 1 10/07/2023 IP CONSULT TO NUTRITION SERVICES 1 10/07/19 24 Admission Count Last Ordered Date First Orde red Date ADMIT TO INPATIENT 1 10/07/2023 Discharge Count Last Ordered Date First Orde red Date DISCHARGE PATIENT 1 10/22/2023 documented in this encounter Care Teams Makeup Artist Relationship Specialty Start Date End Date Duane Corcoran MD PCP - General Family Medicine 08/30/19 Mark Queen MD Consulting Physician Infectious Diseases 01/10/20 Rudolph Welch MD [address] [facility] [address] [place] [address] Consulting Physician Infectious Diseases 12/05/22 Makrie Ryan MD [address] [facility] [address] [place] [address] Consulting Physician Nephrology 12/05/22 Dulce Vega RN [address] [place] [address] [address] [place] [address] Rn Transitional Care 10/07/23 05/03/24 [place] [address] [address] [place] [address] Consulting Physician Nephrology 10/22/23 documented as of this encounter
--- OUTSIDE RECORDS SUMMARY | 2024-07-04 04:07 | XMS_ITS | Encounter Summary ---
Author Organization [facility] Healthcare Address [address] [place] [address] Care Team Providers Care Collar Folder Operator Name Role Phone Cherelle Corcoran MD Primary Care Pro vider Mark Queen MD Unavailable [phone]- [phone] Rudolph Welch MD Unavailable [phone] Markie Ryan MD Unavailable [phone] Encounter Details Date Type Department Care Team (Late st Contact Info) Description 09/07/2023 Telephone [facility] Medical Group Primary Care at [address] [address] Cherelel Corcoran MD [address] [place] [address] Social History Tobacco Use Types Packs/Day [...] slept in a prison (including now)? No 01/20/2023 Personal Safety Answer Date Recorded Have you ever been in or are you currently in a harmful physical or emotional relationship or is someone making you feel afraid or unsafe? 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 Gender Identity Female 02/08/2020 6:39 PM CDT Sexual Orientation Not on file documented as of this encounter Miscellaneous Notes * Telephone Encounter - Valeria Jackson - 09/07/2023 9:12 AM CDT NoShow letter mailed to patient regarding her missed appointment with Dr Corcoran on 09-01-23./ts documented in this encounter Plan of Treatment Upcoming Encounters Date Type Department Care Team (Latest Contact Info) Description 07/13/2024 9:00 AM CAR RETARDER OPERATOR Hospital Encounter [facility] [address] [place] [address] Jaya Grier MD [facility] [facility] [address] [place] [address] 07/13/2024 9:00 AM CAR RETARDER OPERATOR - 07/13/2024 9:30 AM CAR RETARDER OPERATOR Surgery [facility] [address] [place] [address] Jaya Grier MD [address] [facility] [address] [place] [address] ESOPHAGOGASTRODUODENOSCOPY Scheduled Procedures Name Priority Associated Diagnoses Date/Ti me ESOPHAGOGASTRODUODENOSCOPY Anemia, unspecified type Gastritis without bleeding, unspecified chronicity, unspecified gastritis type 07/13/2024 9:00 AM CAR RETARDER OPERATOR COLONOSCOPY Iron deficiency anemia due to chronic blood loss documented as of this encounter Visit Diagnoses Not on filedocumented in this encounter Care Teams Collar Folder Operator Relationship Specialty Start Date End Date Cherelle Corcoran MD PCP - General Family Medicine 08/30/19 Mark Queen MD Consulting Physician Infectious Diseases 01/10/20 Rudolph Welch MD [address] [facility] [address] GA[address]ES [address] [place] [address] Consulting Physician Infectious Diseases 12/05/22 Markie Ryan MD [address] [facility] [address] GA[address] [place] [address] Consulting Physician Nephrology 12/05/22 documented as of this encounter
--- OUTSIDE RECORDS SUMMARY | 2024-07-04 04:07 | XMS_ITS | Encounter Summary ---
Author Organization [facility] Healthcare Address [address] [place] [address] Care Team Providers Care Newspaper Delivery Counselor Name Role Phone Cherelle Corcoran MD Primary Care Pro vider Mark Queen MD Unavailable [phone]- [phone] Rudolph Welch MD Unavailable [phone] Markie Ryan MD Unavailable [phone] Encounter Details Date Type Department Care Team (Late st Contact Info) Description 03/18/2023 2:50 PM CDT Lab [facility] [address] [place] [id number] Dyspnea, unspecified type; Hyperlipidemia associated with type 2 diabetes mellitus (HCC); Type 2 diabetes mellitus with other specified complication, with long-term current use of insulin (HCC); Hypertension associated with diabetes (HCC) Social History Tobacco Use Types Packs/Day [...] often do you attend chur ch or moravian services? 1 to 4 times per year 01/20/2023 Do you belong to any clubs o r organizations such as nondenominational groups, unions, fraternal or athletic groups, or [...] slept in a alf (including now)? No 01/20/2023 Comments No Sex and Gender Information Value Date Recorded Sex Assigned at Not on file Legal Sex Female 9:03 AM CREDIT RISK ANALYTICS MANAGER Gender Identity Female 02/08/2020 6:39 PM CDT Sexual Orientation Not on file documented as of this encounter Plan of Treatment Upcoming Encounters Date Type Department Care Team (Latest Contact Info) Description 07/13/2024 9:00 AM CREDIT RISK ANALYTICS MANAGER Hospital Encounter [facility] [address] [place] [address] Jaya Grier MD [address] [place] [address] [address] [place] [address] 07/13/2024 9:00 AM CREDIT RISK ANALYTICS MANAGER - 07/13/2024 9:30 AM CREDIT RISK ANALYTICS MANAGER Surgery [facility] [address] [place] [address] Jaya Grier MD [facility] [address] GA[address] [place] [address] ESOPHAGOGASTRODUODENOSCOPY Scheduled Procedures Name Priority Associated Diagnoses Date/Ti fl ESOPHAGOGASTRODUODENOSCOPY Anemia, unspecified type Gastritis without bleeding, unspecified chronicity, unspecified gastritis type 07/13/2024 9:00 AM CREDIT RISK ANALYTICS MANAGER COLONOSCOPY Iron deficiency anemia due to chronic blood loss documented as of this encounter Procedures Procedure Name Priority Date/Time Associated Diagnosis Comments EGFR Routine 03/18/2023 3:24 PM CDT Dyspnea, unspecified type Hyperlipidemia associated with type 2 diabetes mellitus (HCC) Type 2 diabetes mellitus with other specified complication, with long-term current use of insulin (HCC) Hypertension associated with diabetes (HCC) DIFFERENTIAL AUTO Routine 03/18/2023 3:2 4 PM CDT Dyspnea, unspecified type Hyperlipidemia associated with type 2 diabetes mellitus (HCC) Type 2 diabetes mellitus with other specified complication, with long-term current use of insulin (HCC) Hypertension associated with diabetes (HCC) CBC WITH AUTO DIFFERENTIAL Routine 03/18/2023 3:24 PM CDT Dyspnea, unspecified type Hyperlipidemia associated with type 2 diabetes mellitus (HCC) Type 2 diabetes mellitus with other specified complication, with long-term current use of insulin (HCC) Hypertension associated with diabetes (HCC) BASIC METABOLIC PANEL Routine 03/18/2023 3:24 PM CDT Dyspnea, unspecified type Hyperlipidemia associated with type 2 diabetes mellitus (HCC) Type 2 diabetes mellitus with other specified complication, with long-term current use of insulin (HCC) Hypertension associated with diabetes (HCC) documented in this encounter Results * eGFR (03/18/2023 3:24 PM CDT) [facility] eGFR 23 mL/min/1. 73 m2 NILSA RODRIGES Comment: Interpretive Data Reference Interval Normal ?>/= [...] was last reviewed 2021. Testing performed by: [facility], [address] [place] [address]., [address] Blood 03/18/2023 3:24 PM CDT 03/18/2023 4:03 PM CDT Santo Vail MD LAB BLOOD ORDERABLES [facility]ice[facility] Result NILSA [address] [facility] [place] [address] * Differential, auto (03/18/2023 3:24 PM CDT) Neutrophil abs 4.9 1.7 - 6.5 K/cumm NILSA Comment:Testing performed by : [address] [address] Imm gran abs 0.0 0.0 - 0.1 K/cumm NILSA Comment:Testing performed by : [address] [address] Lymphocyte abs 2.9 0.8 - 3.3 K/cumm NILSA Comment:Testing performed by : [address] [address] Monocyte abs 0.4 0.2 - 0.8 K/cumm NILSA Comment:Testing performed by : [address] [address] Eosinophil abs 0.1 0.0 - 0.5 K/cumm NILSA Comment:Testing performed by : [address] [address] Basophil abs 0.0 0.0 - 0.1 K/cumm [facility] Comment:Testing performed by : [address] [address] Neutrophil pct 58.1 % [facility] Comment: Interpretive Data Percent cell count reference ranges are not reported, since discordance with absolute values may lead to misinterpretation of CBC data. Current Interpretive Data was last revised on 2017. Testing performed by: [address] [address] Imm gran pct 0.1 % [facility] Comment: Interpretive Data Percent cell count reference ranges are not reported, since discordance with absolute values may lead to misinterpretation of CBC data. Current Interpretive Data was last revised on 2017. Testing performed by: [address] [address] Lymphocyte pct 34.6 % [facility] Comment: Interpretive Data Percent cell count reference ranges are not reported, since discordance with absolute values may lead to misinterpretation of CBC data. Current Interpretive Data was last revised on 2017. Testing performed by: [address] [address] Monocyte pct 5.1 % [facility] Comment: Interpretive Data Percent cell count reference ranges are not reported, since discordance with absolute values may lead to misinterpretation of CBC data. Current Interpretive Data was last revised on 2017. Testing performed by: [address] [address] Eosinophil pct 1.6 % NILSA Comment: Interpretive Data Percent cell count reference ranges are not reported, since discordance with absolute values may lead to misinterpretation of CBC data. Current Interpretive Data was last revised on 2017. Testing performed by: [address] [address] Basophil pct 0.5 % NILSA Comment: Interpretive Data Percent cell count reference ranges are not reported, since discordance with absolute values may lead to misinterpretation of CBC data. Current Interpretive Data was last revised on 2017. Testing performed by: [address] [address] Blood 03/18/2023 3:24 PM CDT 03/18/2023 4:05 PM CDT us Santo Vail MD LAB BLOOD ORDERABLES Blessing alicea Result [facility] [address] [facility] Department [place] [address] * (ABNORMAL) CBC with auto differential (03/18/2023 3:24 PM CDT) WBC 8.5 3.8 - 9.9 K/cumm NILSA Comment:Testing performed by : [address] [address] Hgb 11.0(L) 11.9 - 15.5 g/dL NILSA Comment:Testing performed by : [address] [address] Hct 34.8(L) 35.6 - 45.5 % NILSA Comment:Testing performed by : [address] [address] Plt 287 150 - 400 K/cumm NILSA Comment:Testing performed by : [address], [address] MPV 10.7 9.1 - 12.3 fL NILSA Comment:Testing performed by : [address], [address] RBC 3.65(L) 3.90 - 5.20 M/cumm NILSA Comment:Testing performed by : [address], [address] MCV 95.3 81.3 - 96.4 fL NILSA Comment:Testing performed by : [address], [address] MCH 30.1 27.1 - 33.3 pg NILSA Comment:Testing performed by : [address], [address] MCHC 31.6(L) 32.3 - 35.7 g/dL NILSA Comment:Testing performed by : [address], [address] RDW CV 15.1(H) 11.1 - 14.9 % NILSA Comment:Testing performed by : [address], [address] RDW SD 52.5(H) 35.7 - 48.1 fL NILSA Comment:Testing performed by : [address], [address] NRBC abs 0.00 0.00 - 0.01 K/cumm NILSA Comment:Testing performed by : [address], [address] Blood 03/18/2023 3:24 PM CDT 03/18/2023 4:05 PM CDT Santo Vail MD LAB BLOOD ORDERABLES [facility] Result NILSA [address] [facility] Department [place] [address] * (ABNORMAL) Basic metabolic panel (03/18/2023 3:24 PM CDT) Sodium 141 135 - 145 mmol/L NILSA Comment:Testing performed by : [address] [address] Potassium, pl 4.2 3.3 - 4.9 mmol/L NILSA Comment:Testing performed by : [address] [address] Chloride 108 97 - 110 mmol/L NILSA Comment:Testing performed by : [address] [address] CO2 20(L) 22 - 32 mmol/L NILSA Comment:Testing performed by : [address] [address] Anion gap 13 2 - 15 mmol/L NILSA Comment:Testing performed by : [address] [address] BUN 32(H) 6 - 25 mg/dL NILSA Comment:Testing performed by : [address] [address] Creatinine 2.20(H) 0.60 - 1.10 mg/dL NILSA Comment:Testing performed by : [address] [address] Glucose 132 70 - 199 mg/dL NILSA Comment: Interpretive [...] was last revised 2022. Testing performed by: [facility], [address] [place] [address]., [address] Calcium 9.5 8.5 - 10.3 mg/dL NILSA ZAHIRA Comment:Testing performed by : [facility], [address] [place] [address]., [address] Blood 03/18/2023 3:24 PM CDT 03/18/2023 4:01 PM CDT us Santo Vail MD LAB BLOOD ORDERABLES Blessing l Result NILSA ZAHIRA [address] [facility] Department [place] [address] documented in this encounter Visit Diagnoses Diagnosis Dyspnea, unspecified type Hyperlipidemia associated with type 2 diabetes mellitus (HCC) Type 2 diabetes mellitus with other specified complication, with long-term current use of insulin (HCC) Hypertension associated with diabetes (HCC) Unspecified essential hypertension Anemia, unspecified type Gastritis without bleeding, unspecified chronicity, unspecified gastritis type documented in this encounter Additional Health Concerns Infection Onset Date Last Indicated Resolved Time MRSA Comment:Toe 11/08/22, 12/12/22 11/08/2022 12/12/2022 06/10/2023 3:05 AM CREDIT RISK ANALYTICS MANAGER documented as of this encounter Care Teams Newspaper Delivery Counselor Relationship Specialty Start Date End Date Cherelle Corcoran MD PCP - General Family Medicine 08/30/19 Mark Queen MD Consulting Physician Infectious Diseases 01/10/20 Rudolph Welch MD [address] [facility] [address] [address] Consulting Physician Infectious Diseases 12/05/22 Markie Ryan MD [address] [facility] [address] [address] Consulting Physician Nephrology 12/05/22 documented as of this encounter
--- OUTSIDE RECORDS SUMMARY | 2024-07-04 04:07 | XMS_ITS | Encounter Summary ---
Author Organization [facility] Healthcare Address [address] [place] [address] Care Team Providers Care Teletype Or Varitype Keyboard Operator Name Role Phone Cherelle Corcoran MD Primary Care Pro vider Mark Queen MD Unavailable [phone] Rudolph Welch MD Unavailable [phone] Markie Ryan MD Unavailable [phone] Reason for Visit * Reason Onset Date Comments Edema 10/06/2023 anasarca 10/06/2023 Encounter Details Date Type Department Care Team (Late st Contact Info) Description 10/06/2023 Nurse Triage [facility] Medical Group Primary Care at [address] [phone] Cherelle Corcoran MD [facility] [address] Social History Tobacco Use Types Packs/Day [...] How often do you attend chur or judaism services? 1 to 4 times per year [...] on file Legal Sex Female 9:03 AM MESH MAN Gender Identity Female 02/08/2020 6:39 PM CDT Sexual Orientation Not on file documented as of this encounter Miscellaneous Notes * Telephone Encounter - Rody Noble RN - 10/06/2023 12:21 PM CDT Barbara Chakraborty's daughter Areli calling about edema in her legs for the last 2-3 days. Pt was in the hospital last year for fluid overload but is no longer diuretic or Coreg. Denies chest pain or sob. Her big toe on right toe is red/warm. No pain. Swelling is above her knees. Right leg is a little more swollen than the left left. Hands are not swollen. Face is a little swollen. PCP/PLUMBING ASSEMBLER INSTALLER contactedvia secure chat for ED disposition consult. Recommendation from provider:Proceed to ED PCP feels that ED evaluation is most appropriate given her hx. Discussed recommendation with daughter castro sanchez will take her to [facility] [place] ED. Advised pt to call back if symptoms worsen or with any other conc erns/questions. Pt verbalized understanding. Reason for Disposition SEVERE swelling (e.g., swelling extends above knee, entire leg is swollen, weeping fluid) Protocols used: Leg Swelling and [id number] * Telephone Encounter - Rody Noble RN - 10/06/2023 11:35 AM CDT Regarding: body, face swelling ----- Message from Monserrat Daniel sent at 10/06/2023 11:26 AM CDT ----- Symptom Based Call Chief Complaint(s): body, face swelling Duration: 2-3 days What type of symptom(s) is the patient experiencing? Non-Emergent. Is this a new or reoccurring symptom(s)? new What have you tried to help your symptom(s)? NA Why was appointment not scheduled? Appointment availability did not meet the patient's need. Additional Comments: patient's daughter Areli (on HIPAA) states the patient's body and face have been swelling for the past 2-3 days and the last time happened to her she was hospitalized for fluidoverload. She's been off of Lasix & heart pill for over a year since she was in the hospital. Areli wants her to be seen by Dr Corcoran but no appts available. Does message need to be routed? Yes-Action Needed documented in this encounter Plan of Treatment Upcoming Encounters Date Type Department Care Team (Latest Contact Info) Description 07/13/2024 9:00 AM MESH MAN Hospital Encounter [facility] [address] [place] [address] Jaya Grier MD [facility] [address] [place] [address] 07/13/2024 9:00 AM MESH MAN - 07/13/2024 9:30 AM MESH MAN Surgery [facility] [address] [place] [address] Jaya Grier MD [facility] [address] [place] [address] ESOPHAGOGASTRODUODENOSCOPY Scheduled Procedures Name Priority Associated Diagnoses Date/Ti tn ESOPHAGOGASTRODUODENOSCOPY Anemia, unspecified type Gastritis without bleeding, unspecified chronicity, unspecified gastritis type 07/13/2024 9:00 AM MESH MAN COLONOSCOPY Iron deficiency anemia due to chronic blood loss documented as of this encounter Visit Diagnoses Not on filedocumented in this encounter Care Teams Teletype Or Varitype Keyboard Operator Relationship Specialty Start Date End Date Cherelle Corcoran MD PCP - General Family Medicine 08/30/19 Mark Queen MD Consulting Physician Infectious Diseases 01/10/20 Rudolph Welch MD [address] [facility] [address] [place] [address] Consulting Physician Infectious Diseases 12/05/22 Markie Ryan MD [address] [facility] [address] [place] [address] Consulting Physician Nephrology 12/05/22 documented as of this encounter
--- OUTSIDE RECORDS SUMMARY | 2024-07-04 04:07 | XMS_ITS | Encounter Summary ---
Author Organization [facility] Healthcare Address [address] [place] [address] Care Team Providers Care Intermission Coordinator Name Role Phone Cherelle Corcoran MD Primary Care Pro vider Mark Queen MD Unavailable + [phone] Rudolph Welch MD Unavailable [phone] Markie Ryan MD Unavailable [phone] Reason for Visit * Reason Onset Date Comments Medical Question/Miscellaneous 04/30/2023 Encounter Details Date Type Department Care Team ([facility] st Contact Info) Description 04/30/2023 Telephone [facility] Medical Group Primary Care at [address] [place] [address] Cherelle Corcoran MD [facility] [address] [address] Medical Question/Miscellaneous Social History Tobacco Use [...] do you attend chur or congregational services? 1 to 4 times [...] on file Legal Sex Female 9:03 AM MUSIC INTERNSHIP Gender Identity Female 02/08/2020 6:39 PM CDT Sexual Orientation Not on file documented as of this encounter Miscellaneous Notes * Telephone Encounter - Sandy Mota MA - 05/01/2023 12:04 PM CST Spoke to johnny and she stated that pt has been out of her lantus for 1 mo and I adivsed that she callendo for refill. If something happens and she is not allowed to get it thru them to call back and Iwill send a message to Dr. Corcoran. Thanks! C INTERNSHIP * Telephone Encounter - Libia Mills - 04/30/2023 12:56 PM CST Medical Question/Miscellaneous Caller???s Concern: Patient daughter Areli calling asking if she can speak with Sandy regardingthe lantus and requesting return call Does message need to be routed? Yes-Action Needed C INTERNSHIP documented in this encounter Plan of Treatment Upcoming Encounters Date Type Department Care Team (Latest Contact Info) Description 07/13/2024 9:00 AM MUSIC INTERNSHIP Hospital Encounter [facility] [address] [place] [address] Jaya Grier MD [facility] [address] [place] [address] 07/13/2024 9:00 AM MUSIC INTERNSHIP - 07/13/2024 9:30 AM MUSIC INTERNSHIP Surgery [facility] [address] [place] [address] Jaya Grier MD [address] [facility] [address] [place] [address] ESOPHAGOGASTRODUODENOSCOPY Scheduled Procedures Name Priority Associated Diagnoses Date/Ti mt ESOPHAGOGASTRODUODENOSCOPY Anemia, unspecified type Gastritis without bleeding, unspecified chronicity, unspecified gastritis type 07/13/2024 9:00 AM MUSIC INTERNSHIP COLONOSCOPY Iron deficiency anemia due to chronic blood loss documented as of this encounter Visit Diagnoses Not on filedocumented in this encounter Additional Health Concerns Infection Onset Date Last Indicated Resolved Time MRSA Comment:Toe 11/08/22, 12/12/22 11/08/2022 12/12/2022 06/10/2023 3:05 AM MUSIC INTERNSHIP documented as of this encounter Care Teams Intermission Coordinator Relationship Specialty Start Date End Date Cherelle Corcoran MD PCP - General Family Medicine 08/30/19 Mark Queen MD Consulting Physician Infectious Diseases 01/10/20 Rudolph Welch MD [address] [facility] [address] [place] [address] Consulting Physician Infectious Diseases 12/05/22 Markie Ryan MD [address] [facility] [address] [place] [address] Consulting Physician Nephrology 12/05/22 documented as of this encounter
--- OUTSIDE RECORDS SUMMARY | 2024-07-04 04:07 | XMS_ITS | Encounter Summary ---
Author Organization [facility] Address [address] [place] [address] Phone Care Team Providers Care Test Grader Name Role Phone Cherelle Corcoran MD Primary Care Pro vider Mark Queen MD Unavailable [phone] Rudolph Welch MD Unavailable [phone] Markie Ryan MD Unavailable [phone] Reason for Visit * Reason Onset Date Comments ROWDY Specialty Medical Equipment 07/01/2023 Encounter Details Date Type Department Care Team (Late st Contact Info) Description 07/01/[address] [facility] Endocrinology Metabolism and Lipid [address] [facility] Medicine 5th [place] [address] [place] [address] Yoly Herrera, RN ROWDY Specialty Medical Equipment Social History Tobacco Use Types Packs/Day Years [...] you attend chur ch or confucianism services? 1 to 4 times per year [...] in a retirement (including now)? No 01/20/2023 Personal Safety Answer Date Recorded Getting School Help Needed Denies 06/07 Comments No Sex and Gender Information Value Date Recorded Sex Assigned at Not on file Legal Sex Female 9:03 AM NURSING INFORMATICS CLINICAL ANALYST Gender Identity Female 02/08/2020 6:39 PM CDT Sexual Orientation Not on file documented as of this encounter Progress Notes * Yoly Herrera RN - 07/01/2023 6:33 PM CST Images from the original note were not included. I spoke with the patient's daughter Areli and Plan A: [facility] will fill the Madhav 3 sensor and reader Plan B: Specialty medical equipment will supply the device ING INFORMATICS CLINICAL ANALYST documented in this encounter Plan of Treatment Upcoming Encounters Date Type Department Care Team (Latest Contact Info) Description 07/13/2024 9:00 AM NURSING INFORMATICS CLINICAL ANALYST Hospital Encounter [facility] GI Lab [address] [place] [address] Jaya Grier MD [facility] [facility] [address] [place] [address] 07/13/2024 9:00 AM NURSING INFORMATICS CLINICAL ANALYST - 07/13/2024 9:30 AM NURSING INFORMATICS CLINICAL ANALYST Surgery [facility] GI Lab [address] [place] [address] Jaya Grier MD [address] [place] [address] ESOPHAGOGASTRODUODENOSCOPY Scheduled Procedures Name Priority Associated Diagnoses Date/Ti ky ESOPHAGOGASTRODUODENOSCOPY Anemia, unspecified type Gastritis without bleeding, unspecified chronicity, unspecified gastritis type 07/13/2024 9:00 AM NURSING INFORMATICS CLINICAL ANALYST COLONOSCOPY Iron deficiency anemia due to chronic blood loss documented as of this encounter Visit Diagnoses Not on filedocumented in this encounter Care Teams Test Grader Relationship Specialty Start Date End Date Cherelle Corcoran MD PCP - General Family Medicine 08/30/19 Mark Queen MD Consulting Physician Infectious Diseases 01/10/20 Rudolph Welch MD [address] [place] [address] Consulting Physician Infectious Diseases 12/05/22 Markie Ryan MD [address] [address] [place] [address] Consulting Physician Nephrology 12/05/22 documented as of this encounter
--- OUTSIDE RECORDS SUMMARY | 2024-07-04 04:07 | XMS_ITS | Encounter Summary ---
Author Organization [facility] Address [address] [place] [address] Care Team Providers Care Pmo Project Manager Name Role Phone Cherelle Corcoran MD Primary Care Pro vider Mark Queen MD Unavailable Rudolph Welch MD Unavailable [phone] Markie Ryan MD Unavailable [phone] Dulce Vega RN Unavailable [phone] Jimbo Strauss MD Unavailable [phone] Reason for Visit * Reason Onset Date Comments After Hours 10/06/2023 Encounter Details Date Type Department Care Team ([facility] st Contact Info) Description 10/06/2023 Telephone [facility] Primary Care at [address] [address] Cherelle Corcoran MD [address] [place] [address] After Hours Social History Tobacco Use Types Packs/Day Years Used Date Smoking Tobacco: Never Smokeless Tobacco: Never Alcohol Use Standard Drinks/Week Comments Not Currently 0 (1 standard drink = 0.6 oz pur e alcohol) [facility] Utilities Answer Date Recorded In the [...] you attend chur ch or moravian services? More than 4 times per year 10/30/2023 Do you belong to any clubs o r organizations such as mandaeism groups, unions, fraternal or athletic groups, or [...] file Legal Sex Female 9:03 AM CLOTH CLASSER Gender Identity Female 02/08/2020 6:39 PM CDT Sexual Orientation Not on file documented as of this encounter Miscellaneous Notes * Telephone Encounter - Cherelle Corcoran MD - 10/07/2023 11:49 AM CDT Acknowledged * Telephone Encounter - Laura Price - 10/06/2023 11:06 PM CDT Please return call to: Mary SHARMA Call Back Number: [phone] Patient's Provider: Dr. Corcoran Patient Name: Barbara Chakraborty Date of : 1950 Caller Concern: consult - bilateral leg swelling x2-3days Message sent to Dr. Chakraborty Md7 chat Responses are not monitored. If additional information is required, call [phone]. documented in this encounter Plan of Treatment Upcoming Encounters Date Type Department Care Team (Latest Contact Info) Description 07/13/2024 9:00 AM CLOTH CLASSER Hospital Encounter [facility] GI Lab [address] [place] [address] Jaya Grier MD [address] [facility] [address] [address] [place] [address] 07/13/2024 9:00 AM CLOTH CLASSER - 07/13/2024 9:30 AM CLOTH CLASSER Surgery [facility] GI Lab [address] [place] [address] Jaya Grier MD [address] [facility] [address] [place] [address] ESOPHAGOGASTRODUODENOSCOPY Scheduled Procedures Name Priority Associated Diagnoses Date/Ti il ESOPHAGOGASTRODUODENOSCOPY Anemia, unspecified type Gastritis without bleeding, unspecified chronicity, unspecified gastritis type 07/13/2024 9:00 AM CLOTH CLASSER COLONOSCOPY Iron deficiency anemia due to chronic blood loss documented as of this encounter Visit Diagnoses Not on filedocumented in this encounter Additional Health Concerns Infection Onset Date Last Indicated Resolved Time COVID: Suspected 10/29/2023 10/30/2023 10/30/2023 10:59 AM CDT documented as of this encounter Care Teams Pmo Project Manager Relationship Specialty Start Date End Date Cherelle Corcoran MD PCP - General Family Medicine 08/30/19 Mark Queen MD Consulting Physician Infectious Diseases 01/10/20 Rudolph Welch MD [address] [facility] [address] [place] [address] Consulting Physician Infectious Diseases 12/05/22 Markie Ryan MD [address] [facility] [address] [address] [place] [address] Consulting Physician Nephrology 12/05/22 Dulce Vega RN [address] [facility] [address] [place] [address] Loading Machine Operator Helper 10/07/23 05/03/24 [place] [address] [address] [place] [address] Consulting Physician Nephrology 10/22/23 documented as of this encounter
--- OUTSIDE RECORDS SUMMARY | 2024-07-04 04:07 | XMS_ITS | Encounter Summary ---
Author Organization [facility] Healthcare Address [address] [place] [address] Care Team Providers Care Polisher Hand Name Role Phone Cherelle Corcoran MD Primary Care Pro vider Mark Queen MD Unavailable [phone] Rudolph Welch MD Unavailable [phone] Markie Ryan MD Unavailable [phone] Reason for Referral * Diagnostic Imaging (Routine) - Closed Specialty Diagnoses / Procedures [facility] Referred To Contact Diagnoses Bilateral leg pain Procedures US Vein Duplex Lower Extremity Bilateral Complete Cherelle Corcoran MD [address] [place] [address] Phone: tel: fax: [address] [address] Referral ID Status Reason Start Date Expiration Date Visits Re quested Visits Authorized [id number] Closed 07/24/2023 08/22/2024 1 1 RTER OPERATOR Reason for Visit * Diagnostic Imaging (Routine) - Closed Specialty Diagnoses / Procedures [facility] Referred To Contact Diagnoses Bilateral leg pain Procedures US Vein Duplex Lower Extremity Bilateral Complete Cherelle Corcoran MD [address] [address] Phone: tel: fax: [facility] [address] [place] [phone] Referral ID Status Reason Start Date Expiration Date Visits Re quested Visits Authorized [id number] Closed 07/24/2023 08/22/2024 1 1 Encounter Details Date Type Department Care Team (Latest Contact Info) Description 07/27/2023 3:00 PM INSERTER OPERATOR - 07/27/2023 11:59 PM INSERTER OPERATOR Hospital Encounter [facility] Vascular Lab [address] [place] [address] Bilateral leg pain Discharge Disposition: Discharge to home or [...] you attend chur ch or anabaptism services? 1 to 4 times per year [...] on file Legal Sex Female 9:03 AM INSERTER OPERATOR Gender Identity Female 02/08/2020 6:39 PM [...] DAILY WITH BREAKFAST 90 tablet 07/28/2023 4 ferrous sulfate 325 mg (65 mg of elemental iron) tabletIndications :Iron Deficiency Anemia Take 1 tablet (325 mg total) by mouth daily with breakfast 90 tablet 04/22/2023 4 flash glucose sensor (FreeStyle Madhav 2 Sensor) kitIndications:Ty pe 2 diabetes mellitus with diabetic neuropathy, with long-term current use of insulin ([facility]) Use to continually monitor glucose, change every 14 days 6 kit 3 03/24/2023 4 insulin glargine 100 unit/mL (3 mL) pen for injectionIndicati ons:Type 2 diabetes mellitus with diabetic neuropathy, with long-term current use of insulin ([facility]) Inject 15 Units under the skin nightly Last refill before Jun appointment 15 mL 05/04/2023 4 insulin lispro (HumaLOG, ADMELOG) 100 unit/mL pen for injectionIndicati ons:Type 2 diabetes mellitus with diabetic neuropathy, with long-term current use of insulin ([facility]) Inject 0-12 Units under the skin 3 [...] with long-term current use of insulin ([facility]) 1 Units 4 (four) times a day 100 each 3 03/24/2023 4 valsartan (DIOVAN) 40 mg tablet Take 1 tablet (40 mg total) by mouth daily 90 tablet 3 04/07/2023 4 documented as of this encounter Discharge Disposition Disposition Code Departure Means Destination Discharge to home or self care documented in this encounter Plan of Treatment Upcoming Encounters Date Type Department Care Team (Latest Contact Info) Description 07/13/2024 9:00 AM INSERTER OPERATOR Hospital Encounter [facility] GI Lab [address] [place] [address] Jaya Grier MD [address] [facility] [address] [place] [address] 07/13/2024 9:00 AM INSERTER OPERATOR - 07/13/2024 9:30 AM INSERTER OPERATOR Surgery [facility] [address] [place] [address] Jaya Grier MD [address] [facility] [address] [address] [place] [address] ESOPHAGOGASTRODUODENOSCOPY Scheduled Procedures Name Priority Associated Diagnoses Date/Ti me ESOPHAGOGASTRODUODENOSCOPY Anemia, unspecified type Gastritis without bleeding, unspecified chronicity, unspecified gastritis type 07/13/2024 9:00 AM INSERTER OPERATOR COLONOSCOPY Iron deficiency anemia due to chronic blood loss documented as of this encounter Procedures Procedure Name Priority Date/Time Associated Diagnosis Comments US VEIN DUPLEX LOWER EXTREMITY BILATERAL COMPLETE Schedule RA, Read RA (Appt Today, Awaiting Results) 07/27/2023 3:59 PM INSERTER OPERATOR Bilateral leg pain documented in this encounter Results * US Vein Duplex Lower Extremity Bilateral Complete (07/27/2023 3:59 PM INSERTER OPERATOR) Anatomical Region Laterality Modality Vascular Bilateral Ultrasound 07/27/2023 Narrative 07/31/2023 11:44 AM INSERTER OPERATOR [email or web address] Job ID: [id number] [email or web address] Document ID: [id number] Dictated date/time: [id number] LOWER EXTREMITY VENOUS DUPLEX REASON FOR EXAM Leg pain. COMMENTS ON THE RIGHT Veins throughout the right lower extremity show spontaneous and phasic flow with normal augmentation. ??All veins are competent and compressible. COMMENTS ON THE LEFT Veins throughout the left lower extremity show spontaneous and phasic flow with normal augmentation. ??All veins are competent and compressible. OVERALL IMPRESSION Negative for deep venous thrombosis bilateral lower extremity. Job ID/Internal Job ID: ??[id number] Cherelle Corcoran MD [facility] PROCEDURES Final Result documented in this encounter Visit Diagnoses Diagnosis Bilateral leg pain Pain in soft tissues of limb Anemia, unspecified type Gastritis without bleeding, unspecified chronicity, unspecified gastritis type documented in this encounter Additional Health Concerns Infection Onset Date Last Indicated Resolved Time COVID: Suspected 07/27/2023 07/27/2023 07/28/2023 12:57 AM INSERTER OPERATOR documented as of this encounter Care Teams Polisher Hand Relationship Specialty Start Date End Date Cherelle Corcoran MD PCP - General Family Medicine 08/30/19 Mark Queen MD Consulting Physician Infectious Diseases 01/10/20 Rudolph Welch MD [address] [facility] [address] [place] [address] Consulting Physician Infectious Diseases 12/05/22 Markie Ryan MD [address] [facility] [address] [place] [address] Consulting Physician Nephrology 12/05/22 documented as of this encounter
--- OUTSIDE RECORDS SUMMARY | 2024-07-04 04:07 | XMS_ITS | Encounter Summary ---
Author Organization [facility] Healthcare Address [address] [place] [address] Care Team Providers Care Broomcorn Sorter Name Role Phone Cherelle Corcoran MD Primary Care Pro vider Mark Queen MD Unavailable [phone] Rudolph Welch MD Unavailable [phone] Markie Ryan MD Unavailable [phone] Encounter Details Date Type Department Care Team (Late st Contact Info) Description 07/02/2023 Telephone [facility] Medical Group Nephrology at [address] [place] [address] Markie Ryan MD [address] [place] [address] [address] [place] [address] Social History Tobacco Use Types Packs/Day Years [...] attend chur ch or oriental orthodox services? 1 to 4 times per year 01/20/2023 Do you belong to any clubs o r organizations such as alevism groups, unions, fraternal or athletic groups, or [...] on file Legal Sex Female 9:03 AM PROCEDURES ANALYST Gender Identity Female 02/08/2020 6:39 PM CDT Sexual Orientation Not on file documented as of this encounter Miscellaneous Notes * Telephone Encounter - Tali Barrios MA - 07/02/2023 3:13 PM PROCEDURES ANALYST Called pt's mobile number and reached her daughter Areli. I informed her of the lab results and Dr. Ryan's instructions. She verbalized understanding and requested the lab order be sent to . She also said that Dr. Mtz wanted pt to get a lipid panel done, so she can have those forwarded to us as well. I told her that was fine. EDURES ANALYST * Telephone Encounter - Tali Barrios MA - 07/02/2023 3:09 PM PROCEDURES ANALYST ----- Message from Markie Ryan MD sent at 07/01/2023 8:20 AM PROCEDURES ANALYST ----- Was supposed to have done labs after resuming valsartan in March but apparently did not. Creatinine 3.03. hold valsartan and repeat a bmp in one week please EDURES ANALYST documented in this encounter Plan of Treatment Upcoming Encounters Date Type Department Care Team (Latest Contact Info) Description 07/13/2024 9:00 AM PROCEDURES ANALYST Hospital Encounter [facility] GI Lab [address] [place], [place] [id number] Jaya Grier MD [address] [address] 07/13/2024 9:00 AM PROCEDURES ANALYST - 07/13/2024 9:30 AM PROCEDURES ANALYST Surgery [facility] GI Lab [address] [place] [address] Jaya Grier MD [address] [place] [address] ESOPHAGOGASTRODUODENOSCOPY Scheduled Procedures Name Priority Associated Diagnoses Date/Ti me ESOPHAGOGASTRODUODENOSCOPY Anemia, unspecified type Gastritis without bleeding, unspecified chronicity, unspecified gastritis type 07/13/2024 9:00 AM PROCEDURES ANALYST COLONOSCOPY Iron deficiency anemia due to chronic blood loss documented as of this encounter Results * (ABNORMAL) Basic metabolic panel (07/24/2023 3:19 PM PROCEDURES ANALYST) Sodium 141 135 - 145 mmol/L NILSA Comment:Testing performed by : [address] [address] Potassium, pl 4.1 3.3 - 4.9 mmol/L NILSA Comment:Testing performed by : [address] [address] Chloride 105 97 - 110 mmol/L NILSA Comment:Testing performed by : [address] [address] CO2 23 22 - 32 mmol/L NILSA Comment:Testing performed by : [address] [address] Anion gap 13 2 - 15 mmol/L NILSA Comment:Testing performed by : [address] [address] BUN 44(H) 6 - 25 mg/dL NILSA Comment:Testing performed by : [address] [address] Creatinine 3.70(H) 0.60 - 1.10 mg/dL NILSA Comment:Testing performed by : [address] [address] Glucose 199 70 - 199 mg/dL NILSA Comment: Interpretive [...] was last revised 2022. Testing performed by: [facility], [address] [place] [address]., [address] Calcium 8.5 8.5 - 10.3 mg/dL NILSA RODRIGES Comment:Testing performed by : [address] [address] Blood 07/24/2023 3:19 PM PROCEDURES ANALYST 07/24/2023 4:07 PM PROCEDURES ANALYST us Markie Ryan MD LAB BLOOD ORDERABLES Final Re sult NILSA [address] [facility] [place] [address] documented in this encounter Visit Diagnoses Diagnosis Anemia in stage 3b chronic kidney disease (HCC)- Primary Anemia, unspecified type Gastritis without bleeding, unspecified chronicity, unspecified gastritis type documented in this encounter Care Teams Broomcorn Sorter Relationship Specialty Start Date End Date Cherelle Corcoran MD PCP - General Family Medicine 08/30/19 Mark Queen MD Consulting Physician Infectious Diseases 01/10/20 Rudolph Welch MD [address] [address] [place] [address] Consulting Physician Infectious Diseases 12/05/22 Markie Ryan MD [address] [place] [address] Consulting Physician Nephrology 12/05/22 documented as of this encounter
--- OUTSIDE RECORDS SUMMARY | 2024-07-04 04:07 | XMS_ITS | Encounter Summary ---
Author Organization [facility] Address [address] [place] [address] Phone Care Team Providers Care Supervisor Ordnance Truck Installation Name Role Phone Cherelle Corcoran MD Primary Care Pro vider Mark Queen MD Unavailable [phone] Rudolph Welch MD Unavailable [phone] Markie Ryan MD Unavailable [phone] Reason for Visit * Reason Onset Date Comments ROWDY 06/17/2023 Specialty Medica l Equipment Encounter Details Date Type Department Care Team (Late st Contact Info) Description 06/17/2023 Telephone [facility] Endocrinology Metabolism and Lipid [address] [facility] Advanced Medicine 13th [place] [address] [place] [phone] Lorie Lucero RMA ROWDY (Specialty Medical Equipment) Social History Tobacco Use Types Packs/Day Years [...] friends, or neighbors? Three times a week 08/01/20 23 How often do you get togethe [...] slept in a halfway (including now)? No 01/20/2023 Personal Safety Answer Date Recorded Getting School Help Needed Denies 06/07 Comments No Sex and Gender Information Value Date Recorded Sex Assigned at Not on file Legal Sex Female 9:03 AM [employer] Gender Identity Female 02/08/2020 6:39 PM CDT Sexual Orientation Not on file documented as of this encounter Miscellaneous Notes * Telephone Encounter - Lorie Lucero RMA - 06/17/2023 10:03 AM CST Images from the original note were not included. [employer] documented in this encounter Plan of Treatment Upcoming Encounters Date Type Department Care Team (Latest Contact Info) Description 07/13/2024 9:00 AM [employer] Hospital Encounter [facility] GI Lab [address] [place] [address] Jaya Grier MD [facility] [facility] [address] [place] [address] 07/13/2024 9:00 AM [employer] - 07/13/2024 9:30 AM [employer] Surgery [facility] GI Lab [address] [place] [address] Jaya Grier MD [address] [place] [address] ESOPHAGOGASTRODUODENOSCOPY Scheduled Procedures Name Priority Associated Diagnoses Date/Ti me ESOPHAGOGASTRODUODENOSCOPY Anemia, unspecified type Gastritis without bleeding, unspecified chronicity, unspecified gastritis type 07/13/2024 9:00 AM [employer] COLONOSCOPY Iron deficiency anemia due to chronic blood loss documented as of this encounter Visit Diagnoses Not on filedocumented in this encounter Care Teams Supervisor Ordnance Truck Installation Relationship Specialty Start Date End Date Cherelle Corcoran MD PCP - General Family Medicine 08/30/19 Mark Queen MD Consulting Physician Infectious Diseases 01/10/20 Rudolph Welch MD [address] [facility] [place] [address] Consulting Physician Infectious Diseases 12/05/22 Markie Ryan MD [address] [place] [address] Consulting Physician Nephrology 12/05/22 documented as of this encounter
--- OUTSIDE RECORDS SUMMARY | 2024-07-04 04:07 | XMS_ITS | Encounter Summary ---
Author Organization [facility] Address [address] [place] [address] Phone Care Team Providers Care Plumbing And Heating Mechanic Name Role Phone Cherelle Corcoran MD Primary Care Pro vider Mark Queen MD Unavailable [phone] uRdolph Welch MD Unavailable [phone] Markie Ryan MD Unavailable [phone] Reason for Visit * Reason Onset Date Comments Specialty Med Equipement ROWDY 06/07/2023 Encounter Details Date Type Department Care Team (Late st Contact Info) Description 06/07/2023 Documentation [facility] Endocrinology Metabolism and Lipid [address] [facility] Medicine 5th [place] [address] [place] [address] Yoly Herrera, ALIREZA Specialty Med Equipement ROWDY Social History Tobacco Use Types Packs/Day Years [...] you attend chur ch or samaritan services? 1 to 4 times per year 01/20/2023 Do you belong to any clubs o r organizations such as sikhism groups, unions, fraternal or athletic groups, or [...] money to buy more. Never true 12/24/19 Within the past 12 months, t he [...] slept in a custodial (including now)? No 01/20/2023 Personal Safety Answer Date Recorded Getting School Help Needed Denies 06/07 Comments No Sex and Gender Information Value Date Recorded Sex Assigned at Not on file Legal Sex Female 9:03 AM SOLAR PANEL TECHNICIAN Gender Identity Female 02/08/2020 6:39 PM CDT Sexual Orientation Not on file documented as of this encounter Progress Notes * Yoly Herrera RN - 06/07/2023 10:07 PM CST Images from the original note were not included. R PANEL TECHNICIAN documented in this encounter Plan of Treatment Upcoming Encounters Date Type Department Care Team (Latest Contact Info) Description 07/13/2024 9:00 AM SOLAR PANEL TECHNICIAN Hospital Encounter [facility] [address] [place] [address] Jaya Grier MD [facility]0 [facility] [address] [place] [id number] 07/13/2024 9:00 AM SOLAR PANEL TECHNICIAN - 07/13/2024 9:30 AM SOLAR PANEL TECHNICIAN Surgery [facility] [address] [place] [address] Jaya Grier MD [facility]0 [facility] [address] [place] [phone] ESOPHAGOGASTRODUODENOSCOPY Scheduled Procedures Name Priority Associated Diagnoses Date/Ti wa ESOPHAGOGASTRODUODENOSCOPY Anemia, unspecified type Gastritis without bleeding, unspecified chronicity, unspecified gastritis type 07/13/2024 9:00 AM SOLAR PANEL TECHNICIAN COLONOSCOPY Iron deficiency anemia due to chronic blood loss documented as of this encounter Visit Diagnoses Not on filedocumented in this encounter Additional Health Concerns Infection Onset Date Last Indicated Resolved Time MRSA Comment:Toe 11/08/22, 12/12/22 11/08/2022 12/12/2022 06/10/2023 3:05 AM SOLAR PANEL TECHNICIAN documented as of this encounter Care Teams Plumbing And Heating Mechanic Relationship Specialty Start Date End Date Cherelle Corcoran MD PCP - General Family Medicine 08/30/19 Mark Queen MD Consulting Physician Infectious Diseases 01/10/20 Rudolph Welch MD [address] [facility] [address] [place] [address] Consulting Physician Infectious Diseases 12/05/22 Markie Ryan MD [address] [facility] [address] [place] [address] Consulting Physician Nephrology 12/05/22 documented as of this encounter
--- OUTSIDE RECORDS SUMMARY | 2024-07-04 04:07 | XMS_ITS | Encounter Summary ---
Author Organization [facility] Address [address] [place] [address] Care Team Providers Care Ic Engineer Name Role Phone Duane Callahan MD Primary Care Pro vider Mark Queen MD Unavailable [phone]- [phone] Rudolph Welch MD Unavailable [phone] Markie Ryan MD Unavailable [phone] Reason for Referral * Diagnostic Imaging (Routine) - Closed Specialty Diagnoses / Procedures Referred By Contac t Referred To Contact Diagnoses Bilateral leg pain Procedures US Vein Duplex Lower Extremity Bilateral Complete Duane Callahan MD [facility] [address] Phone: tel: fax: [address] [address] Referral ID Status Reason Start Date Expiration Date Visits Re quested Visits Authorized [id number] Closed 07/24/2023 08/22/2024 1 1 T EXPERIENCE SPECIALIST Reason for Visit * Reason Comments Earache Confusion Possible UTI Leg Pain R leg Encounter Details Date Type Department Care Team ([facility] Contact Info) Description 07/24/2023 1:15 PM GUEST EXPERIENCE SPECIALIST Office Visit [facility] [place] [address] [facility] [address] [place] [address] Duane Callahan MD [address] [facility] [address] [place], [place] [id number] Pain of left lower extremity (Primary Dx); Acute upper respiratory infection; Acute cystitis with hematuria; Type 2 diabetes mellitus with diabetic neuropathy, with long-term current use of insulin (CMS/HCC) (HCC); Primary hypertension; Mixed hyperlipidemia; 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 2 diabetes mellitus (CMS/HCC) (HCC); Anemia in stage 4 chronic kidney disease (HCC); Late onset Alzheimer's dementia without behavioral disturbance (HCC); Parkinsonism, unspecified Parkinsonism type; Schizoaffective disorder, bipolar type (CMS/HCC) (HCC); Swelling of lower leg; Bilateral leg pain Social History Tobacco Use Types Packs/Day Years [...] week 01/20/2023 How often do you attend [facility] or [facility] services? 1 to 4 times [...] [place] [facility] (including now)? No 01/20/2023 Personal Safety Answer Date Recorded Have you ever been in or are you currently in a harmful physical or emotional relationship or is someone making you feel afraid or unsafe? Denies 07/27/2023 Comments No Sex and Gender Information Value Date Recorded Sex Assigned at Not on file Legal Sex Female 9:03 AM GUEST EXPERIENCE SPECIALIST Gender Identity Female 02/08/2020 6:39 PM CDT Sexual Orientation Not on file documented as of this encounter Last Filed Vital Signs Vital Sign Reading Time Taken Comments Blood Pressure 138/68 07/24/2023 1:29 PM GUEST EXPERIENCE SPECIALIST Pulse 72 07/24/2023 1:29 PM GUEST EXPERIENCE SPECIALIST Temperature 36.4 ??C (97.6 ??F) 07/24/2023 1:29 PM CS T Respiratory Rate 18 07/24/2023 1:29 PM GUEST EXPERIENCE SPECIALIST Oxygen Saturation 97% 07/24/2023 1:29 PM GUEST EXPERIENCE SPECIALIST Inhaled Oxygen Concentration - - Weight 56 kg (123 lb 6.4 oz) 07/24/2023 1:29 PM GUEST EXPERIENCE SPECIALIST Height 157.5 cm (5' 2 ) 07/24/2023 1:29 PM GUEST EXPERIENCE SPECIALIST Body Mass Index 22.57 07/24/2023 1:29 PM GUEST EXPERIENCE SPECIALIST documented in this encounter Ordered Prescriptions Prescription Sig Dispense Quantity Refills Last Filled Start Date End Date apixaban (ELIQUIS) 5 mg tabletIndications: Pain of left lower extremity Take 2 tablets (10 mg total) by mouth 2 (two) times a day for 7 days 28 tablet 07/24/2023 4 cefdinir (OMNICEF) 300 mg capsuleIndications :Acute cystitis with hematuria,Acute upper respiratory infection Take 1 capsule (300 mg total) by mouth daily for 10 days 10 capsule 07/24/2023 4 doxycycline (VIBRAMYCIN) 100 mg capsuleIndications :Acute upper respiratory infection Take 1 tablet/capsul e (100 mg total) by mouth 2 (two) times a day for 10 days 20 tablet/capsule 07/24/2023 4 documented in this encounter Progress Notes * Duane Callahan MD - 07/24/2023 1:15 PM CST Images from the original note were not included. Assessment/Plan: Assessment/Plan Diagnoses and all orders for this visit: Pain of left lower extremity (Primary) Comments: Hx of DVT, will order STAT US to evaluate. Unfortunately not completed so eliquis sent out until can get on Thursday Orders: - apixaban (ELIQUIS) 5 mg tablet; Take 2 tablets (10 mg total) by mouth 2 (two) times a day for 7 days Acute upper respiratory infection - cefdinir (OMNICEF) 300 mg capsule; Take 1 capsule (300 mg total) by mouth daily for 10 days Acute cystitis with hematuria Comments: Start cefdinir Orders: - Urinalysis reflex to microscopic and culture Urine, clean voided; Future - cefdinir (OMNICEF) 300 mg capsule; Take 1 capsule (300 mg total) by mouth daily for 10 days Type 2 diabetes mellitus with diabetic neuropathy, with long-term current use of insulin ([facility]) ([facility]) Assessment & Plan: Lab Results Component Value Date HGBA1C 8.1 06/30/2023 Following with endocrine Continue lantus, 12 units humalog TIDAC Primary hypertension Assessment & Plan: Blood pressure borderline today off medications Mixed hyperlipidemia Assessment & Plan: Continue statin 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 2 diabetes mellitus ([facility]) ([facility]) Assessment & Plan: Following with nephrology Encouraged to recheck bmp today Anemia in stage 4 chronic kidney disease ([facility]) Assessment & Plan: Chronic/stable Late onset Alzheimer's dementia without behavioral disturbance ([facility]) Assessment & Plan: Following with neurology Parkinsonism, unspecified Parkinsonism type Assessment & Plan: Following with neurology On cogentin twice a day Schizoaffective disorder, bipolar type ([facility]) ([facility]) Assessment & Plan: Following with psychiatry Swelling of lower leg Bilateral leg pain - US Vein Duplex Lower Extremity Bilateral Complete; Future Return in about 14 weeks (around 10/30/2023) for AWV. or sooner as needed if symptoms not improving or worsen. Strict return/ED precautions discussed. Subjective: Barbara Chakraborty is a 72 y.o. female here for Chief Complaint Patient presents with Earache Confusion Possible UTI Leg Pain R leg Earache Leg Pain Diabetes mellitus: follows with endocrine. 18 units lantus & 4 units humalog TIDAC +SSI Neuropathy: previously on lyrica Hypertension: currently off medication Hyperlipidemia: on 20mg atorvastatin Ckd: following with nephro Alzheimer's dementia: following with neurology Parkinsonism: following with neurology, on cogentin 1.5mg twice a day Schizophrenia: following with psychiatry Review of Systems HENT: Positive for ear pain. Musculoskeletal: Positive for myalgias. Skin: Negative for wound. Psychiatric/Behavioral: Positive for confusion. Objective: Vital signs were reviewed. Vitals: 07/24/23 1329 BP: 138/68 BP Location: Left arm Patient Position: Sitting Pulse: 72 Resp: 18 Temp: 36.4 ??C (97.6 ??F) TempSrc: Temporal SpO2: 97% Weight: 56 kg (123 lb 6.4 oz) Height: 157.5 cm (5' 2 ) Physical Exam Gen: NAD, comfortable, appears as stated age Eyes: no conjunctival injection, EOMI ENMT: external ears symmetric, bilateral tympanic membranes L>R erythematous, oropharynx minimally erythematous CV: Regular rate and rhythm, no murmurs, rubs or gallops Pulm: no increased work of breathing, clear to asculation bilaterally, no wheezing, rhonchi or rales Skin: dry skin on bilateral feet without ulceration, warm and dry MSK/Neuro: symmetric limb movement, L posterior calf TTP Psych: alert and oriented to person Duane Callahan MD T EXPERIENCE SPECIALIST documented in this encounter Miscellaneous Notes * Assessment & Plan Note - Duane Callahan MD - 07/24/2023 1:51 PM CSTAssociated Problem(s): Anemia in chronic kidney disease, on chronic dialysis (HCC) Chronic/stable T EXPERIENCE SPECIALIST * Assessment & Plan Note - Duane Callahan MD - 07/24/2023 1:50 PM CSTAssociated Problem(s): Schizoaffective disorder, bipolar type (CMS/HCC) (HCC) Following with psychiatry T EXPERIENCE SPECIALIST * Assessment & Plan Note - Duane Callahan MD - 07/24/2023 1:50 PM CSTAssociated Problem(s): Parkinsonism (HCC) Following with neurology On cogentin twice a day T EXPERIENCE SPECIALIST * Assessment & Plan Note - Duane Callahan MD - 07/24/2023 1:50 PM CSTAssociated Problem(s): Late onset Alzheimer's dementia without behavioral disturbance (HCC) Following with neurology T EXPERIENCE SPECIALIST * Assessment & Plan Note - Duane Callahan MD - 07/24/2023 1:49 PM CSTAssociated Problem(s): 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 2 diabetes mellitus (CMS/HCC) (HCC) (Deleted) Following with nephrology Encouraged to recheck bmp today T EXPERIENCE SPECIALIST T EXPERIENCE SPECIALIST * Assessment & Plan Note - Duane Callahan MD - 07/24/2023 1:49 PM CSTAssociated Problem(s): Mixed hyperlipidemia Continue statin T EXPERIENCE SPECIALIST * Assessment & Plan Note - Duane Callahan MD - 07/24/2023 1:49 PM CSTAssociated Problem(s): Primary hypertension Blood pressure borderline today off medications T EXPERIENCE SPECIALIST * Assessment & Plan Note - Duane Callahan MD - 07/24/2023 1:49 PM CSTAssociated Problem(s): Type 2 diabetes mellitus with diabetic neuropathy, with long-term current use of insulin ([facility]) Lab Results Component Value Date HGBA1C 8.1 06/30/2023 Following with endocrine Continue lantus, 12 units humalog TIDAC T EXPERIENCE SPECIALIST * Addendum Note - Duane Callahan MD - 07/24/2023 1:15 PM GUEST EXPERIENCE SPECIALIST Addended by: DUANE CALLAHAN on: 07/27/2023 06:56 AM Modules accepted: Level of Service T EXPERIENCE SPECIALIST documented in this encounter Plan of Treatment Upcoming Encounters Date Type Department Care Team (Latest Contact Info) Description 07/13/2024 9:00 AM GUEST EXPERIENCE SPECIALIST Hospital Encounter [facility] [address] [place] [address] Jaya Grier MD [address] [facility] [address] [place] [address] 07/13/2024 9:00 AM GUEST EXPERIENCE SPECIALIST - 07/13/2024 9:30 AM GUEST EXPERIENCE SPECIALIST Surgery [facility] [address] [place] [address] Jaya Grier MD [address] [facility] [address] [place] [address] ESOPHAGOGASTRODUODENOSCOPY Scheduled Procedures Name Priority Associated Diagnoses Date/Ti mt ESOPHAGOGASTRODUODENOSCOPY Anemia, unspecified type Gastritis without bleeding, unspecified chronicity, unspecified gastritis type 07/13/2024 9:00 AM GUEST EXPERIENCE SPECIALIST COLONOSCOPY Iron deficiency anemia due to chronic blood loss documented as of this encounter Results * US Vein Duplex Lower Extremity Bilateral Complete (07/27/2023 3:59 PM GUEST EXPERIENCE SPECIALIST) Anatomical Region Laterality Modality Vascular Bilateral Ultrasound 07/27/2023 Narrative 07/31/2023 11:44 AM GUEST EXPERIENCE SPECIALIST [facility] Job ID: [id number] [facility] Document ID: [id number] Dictated date/time: [id number] LOWER EXTREMITY VENOUS DUPLEX REASON FOR EXAM [...] bilateral lower extremity. Job ID/Internal Job ID: ??[id number] Duane Callahan MD [facility] US PROCEDURES Final Result * (ABNORMAL) Urinalysis reflex to microscopic and culture Urine, clean voided (07/24/2023 3:37 PM GUEST EXPERIENCE SPECIALIST) Color, ur Yellow Yellow NILSA Comment:Testing performed by : [address] [address] Clarity, ur Clear Clear NILSA Comment:Testing performed by : [address] [address] Specific gravity, ur 1.018 1.003 - 1.030 NILSA Comment:Testing performed by : [address] [address] pH, urine 6.0 NILSA Comment: Interpretive Data ? Urine pH is affected by diet, medications, systemic acid-base disturbances, and renal tubular function. ??pH may affect urinary stone formation. ??For example, urine pH below 6.0 may help reduce the tendency for calcium phosphate stones and pH greater than 6.0 may reduce the tendency for uric acid stone formation. Source: [facility] [employer] Current Interpretive Data was last revised on 2017 Testing performed by: [address] [address] Protein, ur ql 3+(A) Negative NILSA Comment:Testing performed by : [address] [address] Glucose, ur ql 3+(A) Negative NILSA Comment:Testing performed by : [address] [address] Ketones, ur Negative Negative INLSA Comment:Testing performed by : [address] [address] Bilirubin, ur Negative Negative NILSA Comment:Testing performed by : [address] [address] Blood, ur 1+(A) Negative NILSA Comment:Testing performed by : [address] [address] Urobilinogen, ur <2.0 <2.0 mg/dL NILSA Comment:Testing performed by : [address] [address] Nitrite, ur Negative Negative NILSA Comment:Testing performed by : [address] [place]., [address] Leukocyte esterase, ur Negative Negative NILSA RODRIGES Comment:Testing performed by : [address] [address] UA reflex comment Reflex to microscopic UA will be performed. NILSA RODRIGES Comment:Testing performed by : [facility], [address] [place] [address]., [address] Urine, clean voided 07/24/2023 3:37 PM GUEST EXPERIENCE SPECIALIST 07/24/2023 5:28 PM GUEST EXPERIENCE SPECIALIST us Duane Callahan MD LAB MICROBIOLOGY - GENERAL ORDERABLES Final Result NILSA [address] [facility] [place] [address] documented in this encounter Visit Diagnoses Diagnosis Pain of left lower extremity- Primary Acute upper respiratory infection Acute upper respiratory infections of unspecified site Acute cystitis with hematuria Type 2 diabetes mellitus with diabetic neuropathy, with long-term current use of insulin ([facility]) Primary hypertension Unspecified essential hypertension Mixed hyperlipidemia 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 2 diabetes mellitus (CMS/HCC) ([facility]) Anemia in stage 4 chronic kidney disease ([facility]) Late onset Alzheimer's dementia without behavioral disturbance ([facility]) Parkinsonism, unspecified Parkinsonism type ([facility]) Schizoaffective disorder, bipolar type ([facility]) ([facility]) Schizoaffective disorder, unspecified condition Swelling of lower leg Bilateral leg pain Pain in soft tissues of limb Bilateral leg pain Pain in soft tissues of limb Anemia, unspecified type Gastritis without bleeding, unspecified chronicity, unspecified gastritis type documented in this encounter Discontinued Medications Medication Sig Discontinue Reason Start Date End Da te doxycycline (VIBRAMYCIN) 100 mg capsuleIndications:Acute upper respiratory infection Take 1 tablet/capsule (100 mg total) by mouth 2 (two) times a day for 10 days Alternate therapy 07/24/2023 07/24/2023 documented as of this encounter Historical Medications * This list may reflect changes made after this encounter. aspirin 81 mg chewable tablet Take 1 tablet (81 mg total) by mouth daily 07/14/2023 09/03/2023 added in this encounter Care Teams Ic Engineer Relationship Specialty Start Date End Date Duane Callahan MD PCP - General Family Medicine 08/30/19 Mark Queen MD Consulting Physician Infectious Diseases 01/10/20 Rudolph Welch MD [address] [facility] [address] [place] [address] Consulting Physician Infectious Diseases 12/05/22 Markie Ryan MD [address] [facility] [address] [place] [address] Consulting Physician Nephrology 12/05/22 documented as of this encounter
--- OUTSIDE RECORDS SUMMARY | 2024-07-04 04:07 | XMS_ITS | Encounter Summary ---
Author Organization [facility] Healthcare Address [address] [place] [address] Care Team Providers Care Operations Staff Specialist Security Name Role Phone Duane Callahan MD Primary Care Pro vider Mark Queen MD Unavailable + [phone] Rudolph Welch MD Unavailable [phone] Markie Ryan MD Unavailable [phone] Reason for Visit * Reason Onset Date Comments Med Refill 04/20/2023 Encounter Details Date Type Department Care Team ([facility] st Contact Info) Description 04/20/2023 Telephone [facility] Medical Group Primary Care at [address] [address] Duane Callahan MD [facility] [address] [address] Med Refill Social History Tobacco Use Types [...] you attend chur ch or religion services? 1 to 4 times per year 01/20/2023 Do you belong to any clubs o r organizations such as mormon groups, unions, fraternal or athletic groups, or [...] file Legal Sex Female 9:03 AM METAL FABRICATOR HELPER Gender Identity Female 02/08/2020 6:39 PM CDT Sexual Orientation Not on file documented as of this encounter Ordered Prescriptions Prescription Sig Dispense Quantity Refills Last Filled Start Date End Date atorvastatin (LIPITOR) 20 mg tablet Take 1 tablet (20 mg total) by mouth nightly 90 tablet 04/24/2023 4 ferrous sulfate 325 mg (65 mg of elemental iron) tabletIndications: Iron Deficiency Anemia Take 1 tablet (325 mg total) by mouth daily with breakfast 90 tablet 04/22/2023 4 documented in this encounter Miscellaneous Notes * Telephone Encounter - Sandy Mota MA - 04/24/2023 5:01 PM CDT Spoke to pt daughter. Verbalized understanding. Nothing further at this time. * Addendum Note - Duane Callahan MD - 04/24/2023 12:27 PM CDT Addended by: DUANE CALLAHAN on: 04/24/2023 12:27 PM Modules accepted: Orders * Telephone Encounter - Duane Callahan MD - 04/24/2023 12:27 PM CDT Iron and atorvastatin Sent to pharmacy. Other medications prescribed by nephrology or endocrine * Telephone Encounter - Valeria Jackson - 04/23/2023 10:35 AM CDT Contacted patient's daughter to schedule Annual Physical for July per Dr Callahan's request. Appointment scheduled for July 24, 2023. Appointment reminder letter mailed to patient. Daughter states mom will need medication refills prior to that. She can be reached at [phone]./ts * Telephone Encounter - Duane Callahan MD - 04/22/2023 8:22 AM CDT Please schedule awv for next available in jul, if has acute issues can be seen sooner * Telephone Encounter - Cristina Rod - 04/20/2023 3:51 PM CDT Medication Refill Patient's last Office/Video Visit: 01/23/23 Patient's next Office/Video Visit: n/a Medication(s) Name/Dose: insulin glargine (LANTUS,BASAGLAR) 100 unit/mL (3 mL) insulin pen, ferroussulfate 325 mg (65 mg of elemental iron) tablet Pharmacy (s) medication(s) should be sent to: [id number] [place], [place] - [address] Additional Comments: none Does message need to be routed? Yes-Action Needed documented in this encounter Plan of Treatment Upcoming Encounters Date Type Department Care Team (Latest Contact Info) Description 07/13/2024 9:00 AM METAL FABRICATOR HELPER Hospital Encounter [facility] [address] [place] [address] Jaya Grier MD [address] [place] [address] 07/13/2024 9:00 AM METAL FABRICATOR HELPER - 07/13/2024 9:30 AM METAL FABRICATOR HELPER Surgery [facility] [address] [place] [address] Jaya Grier MD [address] [place] [address] ESOPHAGOGASTRODUODENOSCOPY Scheduled Procedures Name Priority Associated Diagnoses Date/Ti me ESOPHAGOGASTRODUODENOSCOPY Anemia, unspecified type Gastritis without bleeding, unspecified chronicity, unspecified gastritis type 07/13/2024 9:00 AM METAL FABRICATOR HELPER COLONOSCOPY Iron deficiency anemia due to chronic blood loss documented as of this encounter Visit Diagnoses Diagnosis Iron deficiency anemia, unspecified iron deficiency anemia type- Primary Type 2 diabetes mellitus with diabetic neuropathy, with long-term current use of insulin (HCC) Anemia, unspecified type Gastritis without bleeding, unspecified chronicity, unspecified gastritis type documented in this encounter Discontinued Medications Medication Sig Discontinue Reason Start Date End Da te ferrous sulfate 325 mg (65 mg of elemental iron) tabletIndications:Iron Deficiency Anemia Take 1 tablet (325 mg total) by mouth 2 (two) times a day Reorder 12/05/2022 04/20/2023 atorvastatin (LIPITOR) 20 mg tablet Take 1 tablet (20 mg total) by mouth nightly Reorder 04/24/2023 documented as of this encounter Additional Health Concerns Infection Onset Date Last Indicated Resolved Time MRSA Comment:Toe 11/08/22, 12/12/22 11/08/2022 12/12/2022 06/10/2023 3:05 AM METAL FABRICATOR HELPER documented as of this encounter Care Teams Operations Staff Specialist Security Relationship Specialty Start Date End Date Duane Callahan MD PCP - General Family Medicine 08/30/19 Mark Queen MD Consulting Physician Infectious Diseases 01/10/20 Rudolph Welch MD [address] [place] [address] Consulting Physician Infectious Diseases 12/05/22 Markie Ryan MD [address] [place] [id number] Consulting Physician Nephrology 12/05/22 documented as of this encounter
--- OUTSIDE RECORDS SUMMARY | 2024-07-04 04:07 | XMS_ITS | Encounter Summary ---
Author Organization [facility] Address [address] [place] [address] Phone Care Team Providers Care Sheriffs Officer Name Role Phone Cherelle Corcoran MD Primary Care Pro vider Mark Queen MD Unavailable [phone] Rudolph Welch MD Unavailable [phone] Markie Ryan MD Unavailable [phone] Encounter Details Date Type Department Care Team (Late st Contact Info) Description 09/03/2023 1:30 PM CDT Procedure visit [facility] Otolaryngology [address] [place] [phone] Dulce Mcnulty Middle ear effusion, bilateral (Primary Dx) Social History Tobacco Use Types [...] often do you attend chur ch or hoahaoism services? 1 to 4 times per year [...] slept in a longterm (including now)? No 01/20/2023 Personal Safety Answer Date Recorded Have you ever been in or are you currently in a harmful physical or emotional relationship or is someone making you feel afraid or unsafe? Denies 07/27/2023 Comments No Sex and Gender Information Value Date Recorded Sex Assigned at Not on file Legal Sex Female 9:03 AM CERTIFIED NUTRITIONIST Gender Identity Female 02/08/2020 6:39 PM CDT Sexual Orientation Not on file documented as of this encounter Procedure Notes * Dulce Luis - 09/03/2023 1:30 PM CDT Procedures Audiologic Evaluation Referring physician: Patient referred by HANG Ugalde History: Patient's daughter reported that her mother has been having trouble hearing recently. Patient noted some gradual decline in her hearing sensitivity. Patient's daughter reported recent illness in which patient was complaining about intermittent aural pain. Otoscopy: Ear canals clear of cerumen bilaterally. Tympanometry: Right:Type B tymp and is consistent with abnormal middle ear function. Left: Type B tymp and is consistent with abnormal middle ear function. Audiometry: Pure tone testing revealed unable to obtain reliable A/C or B/C thresholds for either ear today. 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 Word Recognition Score (WRS) in the right ear is 72%, WRS in the left ear is 84% at 80 dB presentation level. Speech Furnace Clerk Threshold in the right ear is 55 dB, in the left ear is 50 dB Counseling: Patient was counseled on audiogram results. Recommendations: -Patient will follow-up with HANG Ugalde for test results and recommendations. -Repeat testing per Nurse Practitioner request. documented in this encounter Plan of Treatment Upcoming Encounters Date Type Department Care Team (Latest Contact Info) Description 07/13/2024 9:00 AM CERTIFIED NUTRITIONIST Hospital Encounter [facility] [address] [place] [address] Jaya Grier MD [address] [place] [address] 07/13/2024 9:00 AM CERTIFIED NUTRITIONIST - 07/13/2024 9:30 AM CERTIFIED NUTRITIONIST Surgery [facility] [address] [place] [address] Jaya Grier MD [address] [place] [address] ESOPHAGOGASTRODUODENOSCOPY Scheduled Procedures Name Priority Associated Diagnoses Date/Ti me ESOPHAGOGASTRODUODENOSCOPY Anemia, unspecified type Gastritis without bleeding, unspecified chronicity, unspecified gastritis type 07/13/2024 9:00 AM CERTIFIED NUTRITIONIST COLONOSCOPY Iron deficiency anemia due to chronic blood loss documented as of this encounter Visit Diagnoses Diagnosis Middle ear effusion, bilateral- Primary Anemia, unspecified type Gastritis without bleeding, unspecified chronicity, unspecified gastritis type documented in this encounter Care Teams Sheriffs Officer Relationship Specialty Start Date End Date Cherelle Corcoran MD PCP - General Family Medicine 08/30/19 Mark Queen MD Consulting Physician Infectious Diseases 01/10/20 Rudolph Welch MD [address] [place] [address] Consulting Physician Infectious Diseases 12/05/22 Markie Ryan MD [address] [place] [address] Consulting Physician Nephrology 12/05/22 documented as of this encounter
--- OUTSIDE RECORDS SUMMARY | 2024-07-04 04:07 | XMS_ITS | Encounter Summary ---
Author Organization [facility] Address [address] [place] [address] Phone Care Team Providers Care Roller Billet Mill Name Role Phone Cherelle Corcoran MD Primary Care Pro vider Mark Queen MD Unavailable [phone] Rudolph Welch MD Unavailable [phone] Markie Ryan MD Unavailable [phone] Reason for Visit * Reason Onset Date Comments Specialty Medical Equipement 09/29/2023 Encounter Details Date Type Department Care Team (Late st Contact Info) Description 09/29/2023 Documentation [facility] Endocrinology Metabolism and Lipid [address] [facility] [address] [place] [address] [place] [address] Yoly Herrera, RN Specialty Medical Equipement Social History Tobacco Use Types Packs/Day Years [...] often do you attend chur ch or jehovah's witness services? 1 to 4 times per year [...] slept in a correction (including now)? No 01/20/2023 Personal Safety Answer Date Recorded Have you ever been in or are you currently in a harmful physical or emotional relationship or is someone making you feel afraid or unsafe? Denies 10/07/2023 Comments No Sex and Gender Information Value Date Recorded Sex Assigned at Not on file Legal Sex Female 9:03 AM ARMATURE INSPECTOR Gender Identity Female 02/08/2020 6:39 PM CDT Sexual Orientation Not on file documented as of this encounter Progress Notes * Yoly Herrera RN - 09/29/2023 12:55 PM CDT Images from the original note were not included. 10/06/2023 Specialty Medical Equipment requested another form be signed with Dr GERRY Hill's name and NOT Dr Kauffman's name New form sent 09/29/2023 documented in this encounter Plan of Treatment Upcoming Encounters Date Type Department Care Team (Latest Contact Info) Description 07/13/2024 9:00 AM ARMATURE INSPECTOR Hospital Encounter [facility] [address] [place] [address] Jaya Grier MD [address] [place] [address] 07/13/2024 9:00 AM ARMATURE INSPECTOR - 07/13/2024 9:30 AM ARMATURE INSPECTOR Surgery [facility] [address] [place] [address] Jaya Grier MD [address] [place] [address] ESOPHAGOGASTRODUODENOSCOPY Scheduled Procedures Name Priority Associated Diagnoses Date/Ti me ESOPHAGOGASTRODUODENOSCOPY Anemia, unspecified type Gastritis without bleeding, unspecified chronicity, unspecified gastritis type 07/13/2024 9:00 AM ARMATURE INSPECTOR COLONOSCOPY Iron deficiency anemia due to chronic blood loss documented as of this encounter Visit Diagnoses Not on filedocumented in this encounter Care Teams Roller Billet Mill Relationship Specialty Start Date End Date Cherelle Corcoran MD PCP - General Family Medicine 08/30/19 Mark Queen MD Consulting Physician Infectious Diseases 01/10/20 Rudolph Welch MD [address] [place] [address] Consulting Physician Infectious Diseases 12/05/22 Markie Ryan MD [address] [place] [id number] Consulting Physician Nephrology 12/05/22 documented as of this encounter
--- OUTSIDE RECORDS SUMMARY | 2024-07-04 04:07 | XMS_ITS | Encounter Summary ---
Author Organization [facility] Healthcare Address [address] [place] [address] Care Team Providers Care Community Health Nurse Supervisor Name Role Phone Cherelle Corcoran MD Primary Care Pro vider Mark Queen MD Unavailable [phone] Rudolph Welch MD Unavailable [phone] Markie Ryan MD Unavailable [phone] Reason for Visit * Reason Comments Chronic Kidney Disease Encounter Details Date Type Department Care Team (Latest Contact Info) Description 04/07/2023 4:15 PM CDT Office Visit [facility] Nephrology at [address] [place] [address] Markie Ryan MD [address] [place] [address] [address] [place] [address] Stage 3b chronic kidney disease (HCC) (Primary Dx); Anemia in stage 3b chronic kidney disease (HCC); Diabetic nephropathy (CMS/HCC) (HCC); Benign hypertensive kidney disease with chronic kidney disease stage I through stage IV, or unspecified(403.10); Secondary hyperparathyroidism (HCC) Social History Tobacco Use Types Packs/Day [...] slept in a [facility] (including now)? No 01/20/2023 Comments No Sex and Gender Information Value Date Recorded Sex Assigned at Not on file Legal Sex Female 9:03 AM EDI DEVELOPER Gender Identity Female 02/08/2020 6:39 PM CDT Sexual Orientation Not on file documented as of this encounter Last Filed Vital Signs Vital Sign Reading Time Taken Comments Blood Pressure 144/71 04/07/2023 4:34 PM CDT Pulse 77 04/07/2023 4:20 PM CDT Temperature 36.2 ??C (97.1 ??F) 04/07/2023 4:20 PM CD T Respiratory Rate - - Oxygen Saturation - - Inhaled Oxygen Concentration - - Weight 59.2 kg (130 lb 9.6 oz) 04/07/2023 4:20 P M CDT Height 157.5 cm (5' 2.01 ) 04/07/2023 4:20 PM CD T Body Mass Index 23.88 04/07/2023 4:20 PM CDT documented in this encounter Ordered Prescriptions Prescription Sig Dispense Quantity Refills Last Filled Start Date End Date valsartan (DIOVAN) 40 mg tablet Take 1 tablet (40 mg total) by mouth daily 90 tablet 3 04/07/2023 08/03/2023 documented in this encounter Progress Notes * Markie Ryan MD - 04/07/2023 4:15 PM CDT Images from the original note were not included. Subjective/Objective Patient ID: Barbara Chakraborty is a 72 y.o. female. Chief Complaint Chronic Kidney Disease HPI This is a patient with chronic kidney disease. She has a history of diabetes since 1997 and a more recent history of hypertension. She does have a history of schizophrenia and had significant difficulty controlling her glucose. Previously albuminuria estimated at 500 mg per day. Most recent serum creatinine of 2.2 with a hemoglobin of 11 and T sat of 33% and intact PTH of 71. Currently not taking any blood pressure medications. Blood pressure has not been monitored at home routinely Review of Systems Constitutional: Negative for appetite change and positive for fatigue. HENT: Negative. Eyes: Negative. Respiratory: Negative for cough, chest tightness and shortness of breath. Cardiovascular: Negative for chest pain, palpitations and for leg swelling. Gastrointestinal: Negative for abdominal pain and nausea. Endocrine: Negative for polydipsia and polyuria. Genitourinary: Negative for decreased urine volume, difficulty urinating, dysuria, flank pain, frequency, hematuria and urgency. Musculoskeletal: Positive for arthralgias Skin: Negative for color change and rash. Allergic/Immunologic: Negative. Neurological: Negative for dizziness, weakness and light-headedness. Hematological: Negative. Psychiatric/Behavioral: Negative. Current Outpatient Medications Medication Sig Dispense Refill acetaminophen (TYLENOL) 325 mg tablet Take 2 tablets (650 mg total) by mouth every 6 (six) hours asneeded for pain 30 tablet 1 albuterol HFA (ProAir HFA) 90 mcg/actuation inhaler Inhale 2 puffs every 4 (four) hours as needed for wheezing or shortness of breath 8.5 g 0 atorvastatin (LIPITOR) 20 mg tablet Take 1 tablet (20 mg total) by mouth nightly conner.stocking,thigh,reg,med misc Wear as much as possible 2 each 1 ferrous sulfate 325 mg (65 mg of elemental iron) tablet Take 1 tablet (325 mg total) by mouth 2 (two) times a day 60 tablet 1 flash glucose scanning reader (FreeStyle Madhav 2 Serafina) [facility] [place] Use to continually monitor glucose 1 each 0 flash glucose sensor (FreeStyle Madhav 2 Sensor) kit Use to continually monitor glucose, change every 14 days 6 kit 3 insulin glargine 100 unit/mL (3 mL) pen for injection Inject 15 Units under the skin nightly 4.5 mL1 insulin lispro (HumaLOG, ADMELOG) 100 unit/mL pen for injection Inject 0-12 Units under the skin 3 (three) times a day before meals per sliding scale --> BG 0-140 = 0 units BG 141-174 = 2 units [id number] = 4 units BG 200-249 = 6 units BG 250-299 = 8 units BG 300-349 = 10 units BG 350-400 = 12 units BG >400 = call 15 mL 3 lidocaine (ASPERCREME) 4 % adhesive patch,medicated Place 1 patch on the skin daily to lower back pen needle, diabetic 32 gauge x 5/32 needle 1 Units 4 (four) times a day 100 each 3 benztropine (COGENTIN) 1 mg tablet Take 1.5 tablets (1.5 mg total) by mouth nightly (Patient takingdifferently: Take 1.5 tablets (1.5 mg total) by mouth 2 (two) times a day) 45 tablet 0 valsartan (DIOVAN) 40 mg tablet Take 1 tablet (40 mg total) by mouth daily 90 tablet 3 No current facility-administered medications for this visit. No Known Allergies Vitals BP 144/71 Pulse 77 Temp 36.2 ??C (97.1 ??F) (Temporal) Ht 157.5 cm (5' 2.01 ) Wt 59.2 kg (130 lb 9.6 oz) BMI 23.88 kg/m?? Physical Exam Constitutional: Appears well-developed and well-nourished. Head: Normocephalic and atraumatic. Eyes: EOM are normal. Neck: Normal range of motion. Cardiovascular: Normal rate and regular rhythm. Pulmonary/Chest: diminished breath sounds at bases bilaterally Abdominal: Soft. Bowel sounds are normal. Musculoskeletal: limited range of motion with mild bilateral lower extremity edema Neurological: Alert and oriented to person, place, and time. Skin: Skin is warm and dry. Psychiatric: Normal mood and affect. Assessment/Plan Diagnoses and all orders for this visit: Stage 3b chronic kidney disease (HCC) (N18.32) (Primary) - Basic metabolic panel; Future Anemia in stage 3b chronic kidney disease (HCC) (N18.32, D63.1) Diabetic nephropathy (CMS/HCC) (HCC) (E11.21) Benign hypertensive kidney disease with chronic kidney disease stage I through stage IV, or unspecified(403.10) (I12.9) Secondary hyperparathyroidism (HCC) (N25.81) Other orders - valsartan (DIOVAN) 40 mg tablet; Take 1 tablet (40 mg total) by mouth daily CKD with a long-term history of diabetes. The patient does have underlying schizophrenia and glucose control had been difficult. Serum creatinine relatively stable on most recent labs. Moderate albuminuria previously. She is currently not on any antihypertensive agents and blood pressure is elevated in the office. I would liketo resume a low-dose of an ARB and titrate up as able. Last potassium unremarkable and I did give her daughter a list of high potassium foods to minimize. She will begin to monitor her blood pressureat home and a regular basis and notify the office if not improving. I will check a repeat chemistrypanel approximately 10 days after starting the ARB to evaluate potassium and we can adjust accordingly. Mild anemia which has improved with normalization of iron stores and no need for erythropoietin analogue at present. Intact PTH appropriate for GFR. documented in this encounter Plan of Treatment Upcoming Encounters Date Type Department Care Team (Latest Contact Info) Description 07/13/2024 9:00 AM EDI DEVELOPER Hospital Encounter [facility] [address] [place] [address] Jaya Grier MD [facility] [address] [place] [address] 07/13/2024 9:00 AM EDI DEVELOPER - 07/13/2024 9:30 AM EDI DEVELOPER Surgery [facility] [address] [place] [address] Jaya Grier MD [facility] [address] [place] [address] ESOPHAGOGASTRODUODENOSCOPY Scheduled Procedures Name Priority Associated Diagnoses Date/Ti hi ESOPHAGOGASTRODUODENOSCOPY Anemia, unspecified type Gastritis without bleeding, unspecified chronicity, unspecified gastritis type 07/13/2024 9:00 AM EDI DEVELOPER COLONOSCOPY Iron deficiency anemia due to chronic blood loss documented as of this encounter Visit Diagnoses Diagnosis Stage 3b chronic kidney disease (HCC)- Primary Anemia in stage 3b chronic kidney disease (HCC) Diabetic nephropathy (CMS/HCC) (HCC) Type II or unspecified type diabetes mellitus with renal manifestations, not stated as uncontrolled Benign hypertensive kidney disease with chronic kidney disease stage I through stage IV, or unspecified(403.10) Benign hypertensive kidney disease with chronic kidney disease stage I through stage IV, or unspecified Secondary hyperparathyroidism (HCC) Secondary hyperparathyroidism (of renal origin) Anemia, unspecified type Gastritis without bleeding, unspecified chronicity, unspecified gastritis type documented in this encounter Discontinued Medications Medication Sig Discontinue Reason Start Date End Da te multivitamin with minerals tablet Take 1 tablet by mouth daily 04/07/2023 amino acids-protein hydr-fiber (Pro-Stat Renal Care) 15-100 gram-kcal/30 mL liquid Take 30 mL by mouth 2 (two) times a day 04/07/2023 amLODIPine (NORVASC) 10 mg tablet Take 1 tablet (10 mg total) by mouth nightly 12/05/2022 04/07/2023 epoetin isaiah-epbx (RETACRIT) (10,000 unit/mL) solutionIndications:A nemia NOT associated with chemotherapy, radiation, or ESRD,anemia of ckd Inject 1 mL (10,000 Units total) under the skin once a week 12/05/2022 04/07/2023 magnesium citrate solution Take 296 mL by mouth daily as needed (for constipation if no results after enema) 04/07/[address] (PROTONIX) 40 mg EC tabletIndications:GI Bleed Take 1 tablet (40 mg total) by mouth 2 (two) times a day 12/30/2022 04/07/2023 polyethylene glycol (MIRALAX) 17 gram packetIndications:con stipation Take 1 packet (17 g total) by mouth daily as needed for constipation 04/07/2023 senna-docusate (PERICOLACE) 8.6-50 mgIndications:constip ation Take 1 tablet by mouth 2 (two) times a day as needed for constipation 12/30/2022 04/07/2023 risperiDONE (RisperDAL) 2 mg tablet Take 1 tablet (2 mg total) by mouth 12/21/2021 04/07/2023 pregabalin (LYRICA) 75 mg capsule Take 1 capsule (75 mg total) by mouth nightly 12/05/2022 04/07/2023 documented as of this encounter Additional Health Concerns Infection Onset Date Last Indicated Resolved Time MRSA Comment:Toe 11/08/22, 12/12/22 11/08/2022 12/12/2022 06/10/2023 3:05 AM EDI DEVELOPER documented as of this encounter Care Teams Community Health Nurse Supervisor Relationship Specialty Start Date End Date Cherelle Corcoran MD PCP - General Family Medicine 08/30/19 Mark Queen MD Consulting Physician Infectious Diseases 01/10/20 Rudolph Welch MD [address] [facility] [address] [place] [address] Consulting Physician Infectious Diseases 12/05/22 Markie Ryan MD [address] [facility] [address] [place] [address] Consulting Physician Nephrology 12/05/22 documented as of this encounter
--- OUTSIDE RECORDS SUMMARY | 2024-07-04 04:07 | XMS_ITS | Encounter Summary ---
Author Organization [facility] Healthcare Address [address] [place] [address] Care Team Providers Care Classroom Instructor Name Role Phone Cherelle Corcoran MD Primary Care Pro vider Mark Queen MD Unavailable [phone] Rudolph Welch MD Unavailable [phone] Markie Ryan MD Unavailable [phone] Encounter Details Date Type Department Care Team (Late st Contact Info) Description 06/30/2023 4:45 PM MAILING JOGGER Lab [facility] [address] [place] [address] Social History Tobacco Use Types Packs/Day Years [...] week 01/20/2023 How often do you attend [facility] system or orthodoxy services? 1 to 4 times per year [...] slept in a [facility] (including now)? No 01/20/2023 Personal Safety Answer Date Recorded Getting School Help Needed Denies 06/07 Comments No Sex and Gender Information Value Date Recorded Sex Assigned at Not on file Legal Sex Female 9:03 AM MAILING JOGGER Gender Identity Female 02/08/2020 6:39 PM CDT Sexual Orientation Not on file documented as of this encounter Plan of Treatment Upcoming Encounters Date Type Department Care Team (Latest Contact Info) Description 07/13/2024 9:00 AM MAILING JOGGER Hospital Encounter [facility] [address] [place] [address] Jaya Grier MD [address] [facility] [address] [place] [address] 07/13/2024 9:00 AM MAILING JOGGER - 07/13/2024 9:30 AM MAILING JOGGER Surgery [facility] [address] [place] [address] Jaya Grier MD [address] [facility] [address] [place] [address] ESOPHAGOGASTRODUODENOSCOPY Scheduled Procedures Name Priority Associated Diagnoses Date/Ti me ESOPHAGOGASTRODUODENOSCOPY Anemia, unspecified type Gastritis without bleeding, unspecified chronicity, unspecified gastritis type 07/13/2024 9:00 AM MAILING JOGGER COLONOSCOPY Iron deficiency anemia due to chronic blood loss documented as of this encounter Visit Diagnoses Not on filedocumented in this encounter Care Teams Classroom Instructor Relationship Specialty Start Date End Date Cherelle Corcoran MD PCP - General Family Medicine 08/30/19 Mark Queen MD Consulting Physician Infectious Diseases 01/10/20 Rudolph Welch MD [address] [facility] [address] [place] [address] Consulting Physician Infectious Diseases 12/05/22 Markie Ryan MD [address] [facility] [address] [address] Consulting Physician Nephrology 12/05/22 documented as of this encounter
--- OUTSIDE RECORDS SUMMARY | 2024-07-04 04:07 | XMS_ITS | Encounter Summary ---
Author Organization [facility] Address [address] [place] [address] Phone Care Team Providers Care Police Sergeant Name Role Phone Cherelle Corcoran MD Primary Care Pro vider Mark Queen MD Unavailable [phone] Rudolph Welch MD Unavailable [phone] Markie Ryan MD Unavailable [phone] Encounter Details Date Type Department Care Team (Latest Contact Info) Description 03/24/2023 11:00 AM CDT Office Visit [facility] Endocrinology Metabolism and Lipid [address] [facility] Medical Office Building [address], [address] [place] [address] Radha Franco, JARAD [address] [place] [address] Type 2 diabetes mellitus with diabetic neuropathy, with long-term current use of insulin (CMS/HCC) (HCC) (Primary Dx); Osteomyelitis of great toe of right foot (CMS/HCC) (HCC) Social History Tobacco Use Types [...] often do you attend chur ch or pentecostalism services? 1 to 4 times per year [...] on file Legal Sex Female 9:03 AM STOCK ORDER LISTER Gender Identity Female 02/08/2020 6:39 PM CDT Sexual Orientation Not on file documented as of this encounter Last Filed Vital Signs Vital Sign Reading Time Taken Comments Blood Pressure 193/67 03/24/2023 11:17 AM CDT Pulse 69 03/24/2023 11:17 AM CDT Temperature - - Respiratory Rate - - Oxygen Saturation - - Inhaled Oxygen Concentration - - Weight 59 kg (130 lb) 03/24/2023 11:17 AM CDT Height 157.5 cm (5' 2.01 ) 03/24/2023 11:17 AM C DT Body Mass Index 23.77 03/24/2023 11:17 AM CDT documented in this encounter Ordered Prescriptions Prescription Sig Dispense Quantity Refills Last Filled Start Date End Date acetaminophen (TYLENOL) 325 mg tabletIndications :Osteomyelitis of great toe of right foot (CMS/HCC) (HCC) Take 2 tablets (650 mg total) by mouth every 6 (six) hours as needed for pain 30 tablet 1 03/24/2023 4 flash glucose sensor (FreeStyle Madhav 2 Sensor) kitIndications:Ty pe 2 diabetes mellitus with diabetic neuropathy, with long-term current use of insulin (HCC) Use to continually monitor glucose, change every 14 days 6 kit 3 03/24/2023 4 flash glucose scanning reader (FreeStyle Madhav 2 [place]) miscIndications:T ype 2 diabetes mellitus with diabetic neuropathy, with long-term current use of insulin (HCC) Use to continually monitor glucose 1 each 03/24/2023 4 insulin lispro (HumaLOG, ADMELOG) 100 unit/mL [...] call MD 15 mL 3 03/24/2023 4 insulin glargine 100 unit/mL (3 mL) pen for injectionIndicati ons:Type 2 diabetes mellitus with diabetic neuropathy, with long-term current use of insulin (HCC) Inject 15 Units under the skin nightly To start once blood sugars are consistently above 200 4.5 mL 1 03/24/2023 3 pen needle, diabetic 32 gauge x 5/32 needleIndications :Type 2 diabetes mellitus with diabetic neuropathy, with long-term current use of insulin (HCC) 1 Units 4 (four) times a day 100 each 3 03/24/2023 4 documented in this encounter Progress Notes * Radha Franco, DIRECTOR MARKET RESEARCH - 03/24/2023 11:00 AM CDT Images from the original note were not included. Endocrine Follow Up Patient Visit Subjective 72 y.o. female presenting for follow up of Type II DM Interim History Patient presents today with her daughter, who she lives with States she has been in and out of the hospital frequently over the last several months Mostly for UTI & possible GI bleed + blood transfusions during hospitalization Upon discharge from the most recent hospitalization, dm medications were reduced/changed Continues to use the Libre2 HPI: 71 y old female with PMH of Type II DM, HTN,HDL , mood disorder is here with her daughter for follow up of her Diabetes. Brief history : Type II DM was diagnosed about 30 years ago Current regimen lantus 15 units humalog Inject 0-12 Units under the skin 3 (three) times a day before meals per sliding scale --> BG 0-140 = 0 units BG 141-174 = 2 units BG 175-199 = 4 units BG 200- 249 = 6 units BG 250-299 = 8 units BG 300-349 = 10 units BG 350-400 = 12 units BG >400 = call No more Trulicity No more base mealtime Humalog She is on Madhav. 14 day madhav downloaded today ++ hypoglycemia awareness dizziness She has neuropathy, on lyrica 150 mg, this was stopped post discharge, per patient's daughter Last eye exam 05/2022; no AS[facility] [place] [facility] She denied having any low Bg recently Wt has been stable Past Medical History: Diagnosis Date Arthritis CHF (congestive heart failure) (CMS/HCC) (HCC) Dementia (HCC) Depression Diabetic neuropathy (HCC) Hyperlipidemia Hypertension Movement disorder Osteomyelitis (HCC) Renal [...] Substance Use Topics Alcohol use: Not Currently Family History Problem Relation Age of Onset Stomach cancer Father Review of Systems 12 pt ROS preformed and negative other than what is noted in the HPI Objective Vitals BP (!) 193/67 (BP Location: Left arm, Patient Position: Sitting) Pulse 69 Ht 157.5 cm (5' 2.01 ) Wt 59 kg (130 lb) BMI 23.77 kg/m?? Physical exam: General Appearance: Alert, cooperative, no distress, appears stated age, well developed, well nourished Head: Normocephalic, without obvious abnormality, atraumatic Eyes: Conjunctiva/corneas clear, both eyes, anicteric. No exophthalmos. No lid lag. Nose: Nares normal, septum midline, mucosa normal, no drainage or sinus tenderness Throat: Mucous membranes moist Neck: Supple, symmetrical, trachea midline, no adenopathy; thyroid: No enlargement/tenderness/nodules Lungs: Clear to auscultation bilaterally, respirations unlabored Cardiovascular: Regular rate and rhythm, S1 and S2 normal, no murmur, rub or gallop, no edema, pulses 2+ and symmetric to all extremeties Abdomen: Soft, non-tender, bowel sounds active, no masses, no organomegaly, non-distended Extremities: Extremities normal, atraumatic, no cyanosis or edema, no clubbing Skin: Skin color, texture, turgor normal, no rashes or striae, lesions or bruising Neurologic: Alert & oriented x 4, CNII-XII grossely intact. Normal strength, sensation and reflexes throughout Psychosocial: Normal affect and mood Lab/Radiology/Diagnostic Review: Lab Results Component Value Date TSH 1.52 09/02/2021 Lab Results Component Value Date CHOL 84 09/10/2021 TRIG 153 (H) 09/10/2021 HDL 33 (L) 09/10/2021 Lab Results Component Value Date PTH 71 (H) 01/23/2023 Assessment/Plan: 71 y old female with PMH of Type II DM, HTN,HDL , mood disorder is here with her daughter for follow up of her Diabetes. Type II Dm Continue current insulin regimen A1C today 7.7% (questionable as patient has had blood transfusions) Historical A1c results: Her HBA1c on 06/09/22 was 8 % 7.5 % Reasonable BS goals for this patient, with co-morbidities and CKD, 100-180 mg/dL Asked her daughter to bring her reader to clinic in 2 weeks for download, will adjust her insulin doses based on her madhav data She also has CKD with albuminuria . Used to be on jardiance was stopped 2/2 STEFANO. UTD with eye exam no Dr Neuropathy: On lyrica 150 mg > this was stopped Vitamin B complex and alpha lipoic acid next visit Hyperlipidemia : 02/07/21 Tc 133 Trig 147 HDL 51 LDL 53 09/10/21 Tc 84 Trig 153 HDL 33 LDL 20 On Atorvastatin 40 mg Continue same CKD 05/13/22 S Cr 1.90 With microalbuminuria Jardiance on hold 2/2 STEFANO Will consider starting low jardiance at later date ( once she feels better, wass very weak in the clinic today) > hold off due to recurring UTIs Problem List Endocrine and Metabolic Type 2 diabetes mellitus with diabetic neuropathy, with long-term current use of insulin ([facility]) ([facility]) - Primary Relevant Orders POCT hemoglobin A1c (Completed) Return in [address] [facility] Cosigned by Ree Gutiérrez MD at 03/24/2023 7:17 PM CDT documented in this encounter Plan of Treatment Upcoming Encounters Date Type Department Care Team (Latest Contact Info) Description 07/13/2024 9:00 AM STOCK ORDER LISTER Hospital Encounter [facility] GI Lab [address] [place] [address] Jaya Grier MD [address] [facility] [address] [place] [address] 07/13/2024 9:00 AM STOCK ORDER LISTER - 07/13/2024 9:30 AM STOCK ORDER LISTER Surgery [facility] GI Lab [address] [place] [address] Jaya Grier MD [facility] [address] [place] [address] ESOPHAGOGASTRODUODENOSCOPY Scheduled Procedures Name Priority Associated Diagnoses Date/Ti me ESOPHAGOGASTRODUODENOSCOPY Anemia, unspecified type Gastritis without bleeding, unspecified chronicity, unspecified gastritis type 07/13/2024 9:00 AM STOCK ORDER LISTER COLONOSCOPY Iron deficiency anemia due to chronic blood loss documented as of this encounter Procedures Procedure Name Priority Date/Time Associated Diagnosis Comments POCT HEMOGLOBIN A1C Routine 03/24/2023 1 1:18 AM CDT Type 2 diabetes mellitus with diabetic neuropathy, with long-term current use of insulin (CMS/HCC) ([facility]) documented in this encounter Results * POCT hemoglobin A1c (03/24/2023 11:18 AM CDT) Hemoglobin A1C, POC 7.7 % Blood 03/24/2023 11:1 8 AM CDT us Radha Franco NP POINT OF CARE TEST FREDDY HALEY Final Result documented in this encounter Visit Diagnoses Diagnosis Type 2 diabetes mellitus with diabetic neuropathy, with long-term current use of insulin (HCC)- Primary Osteomyelitis of great toe of right foot (CMS/HCC) (HCC) Anemia, unspecified type Gastritis without bleeding, unspecified chronicity, unspecified gastritis type documented in this encounter Discontinued Medications Medication Sig Discontinue Reason Start Date End Da te insulin lispro (HumaLOG, ADMELOG) 100 unit/mL pen [...] 12 units BG >400 = call MD Reorder 03/24/2023 insulin glargine 100 unit/mL (3 mL) pen for injection Inject 15 Units under the skin nightly To start once blood sugars are consistently above 200 Reorder 12/10/2022 03/24/2023 flash glucose scanning reader (FreeStyle Madhav 2 [place]) miscIndications:Type 2 diabetes mellitus with diabetic neuropathy, with long-term current use of insulin (HCC) Use to continually monitor glucose Reorder 10/01/2021 03/24/2023 flash glucose sensor (FreeStyle Madhav 2 Sensor) kitIndications:Type 2 diabetes mellitus with diabetic neuropathy, with long-term current use of insulin (HCC) Use to continually monitor glucose, change every 14 days Reorder 2022 03/24/2023 acetaminophen (TYLENOL) 325 mg tablet Take 2 tablets (650 mg total) by mouth every 6 (six) hours as needed for pain Reorder 03/24/2023 documented as of this encounter Additional Health Concerns Infection Onset Date Last Indicated Resolved Time MRSA Comment:Toe 11/08/22, 12/12/22 11/08/2022 12/12/2022 06/10/2023 3:05 AM STOCK ORDER LISTER documented as of this encounter Care Teams Police Sergeant Relationship Specialty Start Date End Date Cherelle Corcoran MD PCP - General Family Medicine 08/30/19 Mark Queen MD Consulting Physician Infectious Diseases 01/10/20 Rudolph Welch MD [address] [facility] [address] Consulting Physician Infectious Diseases 12/05/22 Markie Ryan MD [address] [facility] [address] [place] [address] Consulting Physician Nephrology 12/05/22 documented as of this encounter
--- OUTSIDE RECORDS SUMMARY | 2024-07-04 04:07 | XMS_ITS | Encounter Summary ---
Author Organization [facility] Address [address] [place] [address] Care Team Providers Care Knockout Worker Name Role Phone Cherelle Corcoran MD Primary Care Pro vider Mark Queen MD Unavailable [phone] Rudolph Welch MD Unavailable [phone] Markie Ryan MD Unavailable [phone] Encounter Details Date Type Department Care Team (Late st Contact Info) Description 07/24/2023 4:15 PM INCOME TAX AUDITOR Lab [facility] Lab [address] [place] [id number] Anemia in stage 3b chronic kidney disease (HCC) Social History Tobacco Use Types Packs/Day [...] week 01/20/2023 How often do you attend [facility] or christianity services? 1 to 4 times per year [...] in a group home (including now)? No 01/20/2023 Personal Safety Answer Date Recorded Have you ever been in or are you currently in a harmful physical or emotional relationship or is someone making you feel afraid or unsafe? Denies 07/27/2023 Comments No Sex and Gender Information Value Date Recorded Sex Assigned at Not on file Legal Sex Female 9:03 AM INCOME TAX AUDITOR Gender Identity Female 02/08/2020 6:39 PM CDT Sexual Orientation Not on file documented as of this encounter Plan of Treatment Upcoming Encounters Date Type Department Care Team (Latest Contact Info) Description 07/13/2024 9:00 AM INCOME TAX AUDITOR Hospital Encounter [facility] GI Lab [address] [place] [address] Jaya Grier MD [facility] [facility] [address] [place] [address] 07/13/2024 9:00 AM INCOME TAX AUDITOR - 07/13/2024 9:30 AM INCOME TAX AUDITOR Surgery [facility] [address] [place] [address] Jaya Grier MD [address] [facility] [address] [place] [address] ESOPHAGOGASTRODUODENOSCOPY Scheduled Procedures Name Priority Associated Diagnoses Date/Ti ut ESOPHAGOGASTRODUODENOSCOPY Anemia, unspecified type Gastritis without bleeding, unspecified chronicity, unspecified gastritis type 07/13/2024 9:00 AM INCOME TAX AUDITOR COLONOSCOPY Iron deficiency anemia due to chronic blood loss documented as of this encounter Procedures Procedure Name Priority Date/Time Associated Diagnosis Comments EGFR Routine 07/24/2023 3:19 PM INCOME TAX AUDITOR Anemia in stage 3b chronic kidney disease (HCC) BASIC METABOLIC PANEL Routine 07/24/2023 3:19 PM INCOME TAX AUDITOR Anemia in stage 3b chronic kidney disease (HCC) documented in this encounter Results * eGFR (07/24/2023 3:19 PM INCOME TAX AUDITOR) eGFR 12 mL/min/1. 73 m2 NILSA RODRIGES Comment: Interpretive [...] was last reviewed 2021. Testing performed by: [address] [address] Blood 07/24/2023 3:19 PM INCOME TAX AUDITOR 07/24/2023 4:07 PM INCOME TAX AUDITOR us Markie Ryan MD LAB BLOOD ORDERABLES Final Re sult NILSA [address] [facility] [place] [address] * (ABNORMAL) Basic metabolic panel (07/24/2023 3:19 PM INCOME TAX AUDITOR) Sodium 141 135 - 145 mmol/L NILSA RODRIGES Comment:Testing performed by : [address] [address] Potassium, pl 4.1 3.3 - 4.9 mmol/L NILSA RODRIGES Comment:Testing performed by : [address] [address] Chloride 105 97 - 110 mmol/L NILSA Comment:Testing performed by : [address] [address] CO2 23 22 - 32 mmol/L NILSA Comment:Testing performed by : [address] [address] Anion gap 13 2 - 15 mmol/L NILSA Comment:Testing performed by : [address] [address] BUN 44(H) 6 - 25 mg/dL NILSA Comment:Testing performed by : [address] [address] Creatinine 3.70(H) 0.60 - 1.10 mg/dL NILSA Comment:Testing performed by : [address] [address] Glucose 199 70 - 199 mg/dL NILSA [...] was last revised 2022. Testing performed by: [address] [address] Calcium 8.5 8.5 - 10.3 mg/dL NILSA Comment:Testing performed by : [address] [address] Blood 07/24/2023 3:19 PM INCOME TAX AUDITOR 07/24/2023 4:07 PM INCOME TAX AUDITOR us Markie Ryan MD LAB BLOOD ORDERABLES Final Re sult NILSA [address] [facility] [place] [address] documented in this encounter Visit Diagnoses Diagnosis Anemia in stage 3b chronic kidney disease (HCC) Anemia, unspecified type Gastritis without bleeding, unspecified chronicity, unspecified gastritis type documented in this encounter Care Teams Knockout Worker Relationship Specialty Start Date End Date Cherelle Corcoran MD PCP - General Family Medicine 08/30/19 Mark Queen MD Consulting Physician Infectious Diseases 01/10/20 Rudolph Welch MD [address] [facility] [address] [place] [address] Consulting Physician Infectious Diseases 12/05/22 Markie Ryan MD [address] [facility] [address] [place] [address] Consulting Physician Nephrology 12/05/22 documented as of this encounter
--- OUTSIDE RECORDS SUMMARY | 2024-07-04 04:07 | XMS_ITS | Encounter Summary ---
Author Organization [facility] Address [address] [place] [address] Care Team Providers Care Rendering Equipment Tender Name Role Phone Cherelle Corcoran MD Primary Care Pro vider Mark Queen MD Unavailable [phone] Rudolph Welch MD Unavailable [phone] Markie Ryan MD Unavailable [phone] Encounter Details Date Type Department Care Team (Late st Contact Info) Description 07/24/2023 4:00 PM ELECTROLOGIST Lab [facility] Lab [address] [place] [address] Confusion Social History Tobacco Use Types Packs/Day Years [...] week 01/20/2023 How often do you attend [facility] or worship services? 1 to 4 times per year [...] slept in a fci (including now)? No 01/20/2023 Personal Safety Answer Date Recorded Have you ever been in or are you currently in a harmful physical or emotional relationship or is someone making you feel afraid or unsafe? Denies 07/27/2023 Comments No Sex and Gender Information Value Date Recorded Sex Assigned at Not on file Legal Sex Female 9:03 AM ELECTROLOGIST Gender Identity Female 02/08/2020 6:39 PM CDT Sexual Orientation Not on file documented as of this encounter Plan of Treatment Upcoming Encounters Date Type Department Care Team (Latest Contact Info) Description 07/13/2024 9:00 AM ELECTROLOGIST Hospital Encounter [facility] GI Lab [address] [place] [address] Jaya Grier MD [address] [place] [address] [address] [place] [address] 07/13/2024 9:00 AM ELECTROLOGIST - 07/13/2024 9:30 AM ELECTROLOGIST Surgery [facility] Lab [address] [place] [address] Jaya Grier MD [facility]0 [facility] [address] [place] [address] ESOPHAGOGASTRODUODENOSCOPY Scheduled Procedures Name Priority Associated Diagnoses Date/Ti ms ESOPHAGOGASTRODUODENOSCOPY Anemia, unspecified type Gastritis without bleeding, unspecified chronicity, unspecified gastritis type 07/13/2024 9:00 AM ELECTROLOGIST COLONOSCOPY Iron deficiency anemia due to chronic blood loss documented as of this encounter Procedures Procedure Name Priority Date/Time Associated Diagnosis Comments URINALYSIS AND REFLEX TO MICROSCOPIC AND CULTURE Routine 07/24/2023 3:37 PM ELECTROLOGIST Confusion URINALYSIS, MICROSCOPIC ONLY Routine 07/24/2023 3:37 PM ELECTROLOGIST Confusion URINE CULTURE Routine 07/24/2023 3:37 PM ELECTROLOGIST documented in this encounter Results * Urine culture Urine, clean voided (07/24/2023 3:37 PM ELECTROLOGIST) Report Final Report: Less than 100,000 colonies/mL (clinically insignificant growth based on current clinical standards) NILSA RODRIGES Comment:Testing performed by : [facility], [address] [facility] [place]., [address] Organism (CLINICALLY INSIGNIFICANT GROWTH NILSA RODRIGES Urine, clean voided 07/24/2023 3:37 PM ELECTROLOGIST 07/24/2023 8:51 PM ELECTROLOGIST Narrative NILSA RODRIGES - 07/26/2023 7:51 AM ELECTROLOGIST Urine culture reflexed based upon urinalysis results. Testing performed by [facility] ([phone]) us Cherelle Corcoran MD LAB MICROBIOLOGY - GENERAL ORDERABLES Final Result NILSA RODRIGES [address] [facility] Department [place] [address] * (ABNORMAL) Urinalysis, microscopic only (07/24/2023 3:37 PM ELECTROLOGIST) WBC, ur 21-50(A) 0 - 5 /HPF NILSA RODRIGES Comment:Testing performed by : [facility], [address] [place] [address]., [address] RBC, ur 3-5(A) 0 - 2 /HPF NILSA Comment:Testing performed by : [address] [address] Epithelial cells, squamous, ur 11-20(A) 0 - 5 /HPF NILSA Comment:Testing performed by : [address] [address] Bacteria, ur Trace(A) NILSA Comment:Testing performed by : [address] [address] Mucous, ur Present(A) NILSA Comment:Testing performed by : [address] [address] Culture Reflex Comment Reflex to urine culture will be performed. NILSA Comment:Testing performed by : [address] [address] Urine, clean voided 07/24/2023 3:37 PM ELECTROLOGIST 07/24/2023 5:29 PM ELECTROLOGIST us Cherelle Corcoran MD LAB URINE ORDERAB LES Final Result NILSA RODRIGES [address] [facility] Department [place] [address] * (ABNORMAL) Urinalysis reflex to microscopic and culture Urine, clean voided (07/24/2023 3:37 PM ELECTROLOGIST) Color, ur Yellow Yellow NILSA RODRIGES Comment:Testing performed by : [address] [address] Clarity, ur Clear Clear NILSA Comment:Testing performed by : [address] [address] Specific gravity, ur 1.018 1.003 - 1.030 NILSA Comment:Testing performed by : [address] [address] pH, urine 6.0 NILSA Comment: Interpretive Data ? Urine pH is affected by diet, medications, systemic acid-base disturbances, and renal tubular function. ??pH may affect urinary stone formation. ??For example, urine pH below 6.0 may help reduce the tendency for calcium phosphate stones and pH greater than 6.0 may reduce the tendency for uric acid stone formation. Source: [facility] [employer] Current Interpretive Data was last revised on 2017 Testing performed by: [address] [address] Protein, ur ql 3+(A) Negative INLSA Comment:Testing performed by : [address] [address] Glucose, ur ql 3+(A) Negative NILSA Comment:Testing performed by : [address] [address] Ketones, ur Negative Negative NILSA RODRIGES Comment:Testing performed by : [address] [address] Bilirubin, ur Negative Negative NILSA Comment:Testing performed by : [address] [address] Blood, ur 1+(A) Negative NILSA RODRIGES Comment:Testing performed by : [facility], [address] [place] [address]., [address] Urobilinogen, ur <2.0 <2.0 mg/dL NILSA Comment:Testing performed by : [address] [address] Nitrite, ur Negative Negative NILSA Comment:Testing performed by : [address] [address] Leukocyte esterase, ur Negative Negative NILSA Comment:Testing performed by : [address] [address] UA reflex comment Reflex to microscopic UA will be performed. NILSA Comment:Testing performed by : [address] [address] Urine, clean voided 07/24/2023 3:37 PM ELECTROLOGIST 07/24/2023 5:28 PM ELECTROLOGIST Cherelle Corcoran MD LAB MICROBIOLOGY - GENERAL ORDERABLES Final Result NILSA [address] [facility] Department [place] [address] documented in this encounter Visit Diagnoses Diagnosis Confusion Unspecified psychosis Anemia, unspecified type Gastritis without bleeding, unspecified chronicity, unspecified gastritis type documented in this encounter Care Teams Rendering Equipment Tender Relationship Specialty Start Date End Date Cherelle Corcoran MD PCP - General Family Medicine 08/30/19 Mark Queen MD Consulting Physician Infectious Diseases 01/10/20 Rudolph Welch MD [facility] [address] [place] [address] Consulting Physician Infectious Diseases 12/05/22 Markie Ryan MD [address] [facility] [address] [place] [address] Consulting Physician Nephrology 12/05/22 documented as of this encounter
--- OUTSIDE RECORDS SUMMARY | 2024-07-04 04:07 | XMS_ITS | Encounter Summary ---
Author Organization [facility] Healthcare Address [address] [place] [address] Care Team Providers Care Probate Judge Name Role Phone Cherelle Corcoran MD Primary Care Pro vider Mark Queen MD Unavailable [phone] Rudolph Welch MD Unavailable [phone] Markie Ryan MD Unavailable [phone] Encounter Details Date Type Department Care Team (Late st Contact Info) Description 06/30/2023 5:05 PM METAL LATHER Lab [facility] [address] [place] [address] Stage 3b chronic kidney disease (HCC); Anemia in stage 3b chronic kidney disease (HCC); Diabetic nephropathy (CMS/HCC) (HCC); Benign hypertensive kidney disease with chronic kidney disease stage I through stage IV, or unspecified(403.10) Social History Tobacco Use Types Packs/Day Years [...] often do you attend chur ch or mandaeism services? 1 to 4 times per year [...] in a skilled nursing (including now)? No 01/20/2023 Personal Safety Answer Date Recorded Getting School Help Needed Denies 06/07 Comments No Sex and Gender Information Value Date Recorded Sex Assigned at Not on file Legal Sex Female 9:03 AM METAL LATHER Gender Identity Female 02/08/2020 6:39 PM CDT Sexual Orientation Not on file documented as of this encounter Plan of Treatment Upcoming Encounters Date Type Department Care Team (Latest Contact Info) Description 07/13/2024 9:00 AM METAL LATHER Hospital Encounter [facility] [address] [place] [address] Jaya Grier MD [address] [place] [address] [address] [place] [address] 07/13/2024 9:00 AM METAL LATHER - 07/13/2024 9:30 AM METAL LATHER Surgery [facility] [address] [place] [address] Jaya Grier MD [address] [place] [address] [address] [place] [address] ESOPHAGOGASTRODUODENOSCOPY Scheduled Procedures Name Priority Associated Diagnoses Date/Ti id ESOPHAGOGASTRODUODENOSCOPY Anemia, unspecified type Gastritis without bleeding, unspecified chronicity, unspecified gastritis type 07/13/2024 9:00 AM METAL LATHER COLONOSCOPY Iron deficiency anemia due to chronic blood loss documented as of this encounter Procedures Procedure Name Priority Date/Time Associated Diagnosis Comments EGFR Routine 06/30/2023 5:16 PM METAL LATHER Stage 3b chronic kidney disease (HCC) Anemia in stage 3b chronic kidney disease (HCC) Diabetic nephropathy (CMS/HCC) (HCC) Benign hypertensive kidney disease with chronic kidney disease stage I through stage IV, or unspecified(403.10) DIFFERENTIAL AUTO Routine 06/30/2023 5:1 6 PM METAL LATHER Stage 3b chronic kidney disease (HCC) Anemia in stage 3b chronic kidney disease (HCC) Diabetic nephropathy (CMS/HCC) (HCC) Benign hypertensive kidney disease with chronic kidney disease stage I through stage IV, or unspecified(403.10) IRON PROFILE W/ IBC Routine 06/30/2023 5 :16 PM METAL LATHER Stage 3b chronic kidney disease (HCC) Anemia in stage 3b chronic kidney disease (HCC) Diabetic nephropathy (CMS/HCC) (HCC) Benign hypertensive kidney disease with chronic kidney disease stage I through stage IV, or unspecified(403.10) CBC WITH AUTO DIFFERENTIAL Routine 06/30/2023 5:16 PM METAL LATHER Stage 3b chronic kidney disease (HCC) Anemia in stage 3b chronic kidney disease (HCC) Diabetic nephropathy (CMS/HCC) (HCC) Benign hypertensive kidney disease with chronic kidney disease stage I through stage IV, or unspecified(403.10) BASIC METABOLIC PANEL Routine 06/30/2023 5:16 PM METAL LATHER Stage 3b chronic kidney disease (HCC) Anemia in stage 3b chronic kidney disease (HCC) Diabetic nephropathy (CMS/HCC) (HCC) Benign hypertensive kidney disease with chronic kidney disease stage I through stage IV, or unspecified(403.10) documented in this encounter Results * eGFR (06/30/2023 5:16 PM METAL LATHER) eGFR 16 mL/min/1. 73 m2 NILSA DIAS Comment: Interpretive Data Reference Interval Normal ?>/= [...] interpretive data was last reviewed 2021. Blood 06/30/2023 5:16 PM METAL LATHER 06/30/2023 5:23 PM METAL LATHER us Markie Ryan MD LAB BLOOD ORDERABLES Final Re sult [facility] [address] [facility]. [place] [address] * Differential, auto (06/30/2023 5:16 PM METAL LATHER) Neutrophil abs 5.1 1.5 - 6.5 K/cumm [facility] Imm gran abs 0.0 0.0 - 0.1 K/cumm [facility] Lymphocyte abs 3.3 0.8 - 3.3 K/cumm [facility] Monocyte abs 0.4 0.2 - 0.8 K/cumm [facility] Eosinophil abs 0.2 0.0 - 0.5 K/cumm [facility] Basophil abs 0.0 0.0 - 0.1 K/cumm [facility] Neutrophil pct 56.3 % [facility] Comment: Interpretive Data Percent cell count reference ranges are not reported, since discordance with absolute values may lead to misinterpretation of CBC data. Current Interpretive Data was last revised on 2017. Imm gran pct 0.2 % [facility] Comment: Interpretive Data Percent cell count reference ranges are not reported, since discordance with absolute values may lead to misinterpretation of CBC data. Current Interpretive Data was last revised on 2017. Lymphocyte pct 36.3 % [facility] Comment: Interpretive Data Percent cell count reference ranges are not reported, since discordance with absolute values may lead to misinterpretation of CBC data. Current Interpretive Data was last revised on 2017. Monocyte pct 4.8 % [facility] Comment: Interpretive Data Percent cell count reference ranges are not reported, since discordance with absolute values may lead to misinterpretation of CBC data. Current Interpretive Data was last revised on 2017. Eosinophil pct 2.1 % [facility] Comment: Interpretive Data Percent cell count reference ranges are not reported, since discordance with absolute values may lead to misinterpretation of CBC data. Current Interpretive Data was last revised on 2017. Basophil pct 0.3 % [facility] Comment: Interpretive Data Percent cell count reference ranges are not reported, since discordance with absolute values may lead to misinterpretation of CBC data. Current Interpretive Data was last revised on 2017. Blood 06/30/2023 5:16 PM METAL LATHER 06/30/2023 5:23 PM METAL LATHER us Markie Ryan MD LAB BLOOD ORDERABLES Final Re sult [facility] [address] [facility]. [place] [address] * (ABNORMAL) CBC with auto differential (06/30/2023 5:16 PM METAL LATHER) WBC 9.0 3.8 - 9.9 K/cumm [facility] Hgb 10.2(L) 11.9 - 15.5 g/dL [facility] Hct 32.2(L) 35.6 - 45.5 % [facility] Plt 334 150 - 400 K/cumm [facility] MPV 10.3 9.1 - 12.3 fL [facility] RBC 3.41(L) 3.90 - 5.20 M/cumm [facility] MCV 94.4 81.3 - 96.4 fL [facility] MCH 29.9 27.1 - 33.3 pg [facility] MCHC 31.7(L) 32.3 - 35.7 g/dL [facility] RDW CV 13.8 11.1 - 14.9 % [facility] RDW SD 47.1 35.7 - 48.1 fL [facility] NRBC abs 0.00 0.00 - 0.01 K/cumm [facility] Blood 06/30/2023 5:16 PM METAL LATHER 06/30/2023 5:23 PM METAL LATHER Markie Ryan MD LAB BLOOD ORDERABLES Final Re sult Performing Organization Address [facility]/ZIP Co de Phone Number NILSA MUELLER [address] [employer] [place] [address] * (ABNORMAL) Iron profile w/ IBC (06/30/2023 5:16 PM METAL LATHER) Pathologist [facility] Iron 56 35 - 145 mcg/dL [facility] Comment:Testing performed by : [facility], [address] [place] [address]., [id number] TIBC 180(L) 250 - 400 mcg/dL [facility] Comment:Testing performed by : [facility], [address] [place] [address]., [id number] Transferrin saturation 31 20 - 50 % [facility] Comment:Testing performed by : [facility], [address] [place] [address]., [id number] Blood 06/30/2023 5:16 PM METAL LATHER 06/30/2023 8:02 PM METAL LATHER Markie Ryan MD LAB BLOOD ORDERABLES Final Re sult Performing Organization Address [facility]/ZIP Co de Phone Number [facility] [address] [employer] [facility] [place] [address] * (ABNORMAL) Basic metabolic panel (06/30/2023 5:16 PM METAL LATHER) Sodium 145 135 - 145 mmol/L [facility] Potassium, pl 3.6 3.3 - 4.9 mmol/L [facility] Chloride 109 97 - 110 mmol/L [facility] CO2 27 22 - 32 mmol/L [facility] Anion gap 9 2 - 15 mmol/L [facility] BUN 35(H) 6 - 25 mg/dL [facility] Creatinine 3.03(H) 0.60 - 1.10 mg/dL [facility] Glucose 156 70 - 199 mg/dL [facility] Comment: Interpretive Data Fasting glucose >/= 126 [...] 2022. Calcium 8.8 8.5 - 10.3 mg/dL [facility] Blood 06/30/2023 5:16 PM METAL LATHER 06/30/2023 5:23 PM METAL LATHER Markie Ryan MD LAB BLOOD ORDERABLES Edited R esult - Final [facility]ILSA M[facility]LLERCH [address] [facility]. [place] [address] documented in this encounter Visit Diagnoses Diagnosis Stage 3b chronic kidney disease (HCC) Anemia in stage 3b chronic kidney disease (HCC) Diabetic nephropathy (CMS/HCC) (HCC) Type II or unspecified type diabetes mellitus with renal manifestations, not stated as uncontrolled Benign hypertensive kidney disease with chronic kidney disease stage I through stage IV, or unspecified(403.10) Benign hypertensive kidney disease with chronic kidney disease stage I through stage IV, or unspecified Anemia, unspecified type Gastritis without bleeding, unspecified chronicity, unspecified gastritis type documented in this encounter Care Teams Probate Judge Relationship Specialty Start Date End Date Cherelle Corcoran MD PCP - General Family Medicine 08/30/19 Mark Queen MD Consulting Physician Infectious Diseases 01/10/20 Rudolph Welch MD [address] [facility] [address] [place] [address] Consulting Physician Infectious Diseases 12/05/22 Markie Ryan MD [address] [facility] [address] [place] [address] Consulting Physician Nephrology 12/05/22 documented as of this encounter
--- OUTSIDE RECORDS SUMMARY | 2024-07-04 04:07 | XMS_ITS | Encounter Summary ---
Author Organization [facility] Healthcare Address [address] [place] [address] Care Team Providers Care Hands And Dial Inspector Name Role Phone Cherelle Corcoran MD Primary Care Pro vider Mark Queen MD Unavailable [phone] Rudolph Welch MD Unavailable [phone] Markie Ryan MD Unavailable [phone] Encounter Details Date Type Department Care Team (Late st Contact Info) Description 07/27/2023 Telephone [facility] Medical Group Nephrology at [address] [place] [address] Markie Ryan MD [address] [place] [address] [address] [place] [address] Social History Tobacco Use Types Packs/Day Years [...] on file Legal Sex Female 9:03 AM GARBAGE COLLECTOR Gender Identity Female 02/08/2020 6:39 PM CDT Sexual Orientation Not on file documented as of this encounter Miscellaneous Notes * Telephone Encounter - Markie Ryan MD - 07/27/2023 4:54 PM CST Yes please AGE COLLECTOR * Telephone Encounter - Mihaela Mejia MA - 07/27/2023 3:49 PM GARBAGE COLLECTOR Right now she has a UTI and also an ear infection. She tested negative for COVID. Do you still justwant her to check labs in a week? AGE COLLECTOR * Telephone Encounter - Mihaela Mejia MA - 07/27/2023 3:49 PM GARBAGE COLLECTOR ----- Message from Markie Ryan MD sent at 07/27/2023 10:59 AM GARBAGE COLLECTOR ----- Creatinine up to 3.7, please make sure no new issues and that they did discontinue valsartan. Also please make sure patient is feeling okay. If so would repeat a BMP next week please AGE COLLECTOR documented in this encounter Plan of Treatment Upcoming Encounters Date Type Department Care Team (Latest Contact Info) Description 07/13/2024 9:00 AM GARBAGE COLLECTOR Hospital Encounter [facility] [address] [place] [address] Jaya Grier MD [address] [facility] [address] [place] [address] 07/13/2024 9:00 AM GARBAGE COLLECTOR - 07/13/2024 9:30 AM GARBAGE COLLECTOR Surgery [facility] [address] [place] [address] Jaya Grier MD [address] [facility] [address] [place] [address] ESOPHAGOGASTRODUODENOSCOPY Scheduled Orders Name Type Priority Associated Diagnoses Orde r Schedule Basic metabolic panel Lab Routine Stage 3b chronic kidney disease (HCC) Expected: 08/03/2023, Expires: 07/27/2024 Scheduled Procedures Name Priority Associated Diagnoses Date/Ti pa ESOPHAGOGASTRODUODENOSCOPY Anemia, unspecified type Gastritis without bleeding, unspecified chronicity, unspecified gastritis type 07/13/2024 9:00 AM GARBAGE COLLECTOR COLONOSCOPY Iron deficiency anemia due to chronic blood loss documented as of this encounter Visit Diagnoses Diagnosis Stage 3b chronic kidney disease (HCC)- Primary Anemia, unspecified type Gastritis without bleeding, unspecified chronicity, unspecified gastritis type documented in this encounter Care Teams Hands And Dial Inspector Relationship Specialty Start Date End Date Cherelle Corcoran MD PCP - General Family Medicine 08/30/19 Mark Queen MD Consulting Physician Infectious Diseases 01/10/20 Rudolph Welch MD [address] [facility] [address] [place] [address] Consulting Physician Infectious Diseases 12/05/22 Markie Ryan MD [address] [facility] [address] [place] [address] Consulting Physician Nephrology 12/05/22 documented as of this encounter
--- OUTSIDE RECORDS SUMMARY | 2024-07-04 04:07 | XMS_ITS | Encounter Summary ---
Author Organization [facility] Healthcare Address [address] [place] [address] Care Team Providers Care Family And Divorce Legal Assistant Name Role Phone Cherelle Corcoran MD Primary Care Pro vider Mark Queen MD Unavailable + [phone] Rudolph Welch MD Unavailable [phone] Markie Ryan MD Unavailable [phone] Reason for Visit * Reason Onset Date Comments Forms Request 06/29/2023 Encounter Details Date Type Department Care Team ([facility] st Contact Info) Description 06/29/2023 Telephone [facility] Medical Group Primary Care at [address] [address] Cherelle Corcoran MD [facility] [address] [address] Forms Request Social History Tobacco Use Types Packs/Day [...] you attend chur ch or sabianist services? 1 to 4 times per year [...] file Legal Sex Female 9:03 AM SENIOR ANDROID DEVELOPER Gender Identity Female 02/08/2020 6:39 PM CDT Sexual Orientation Not on file documented as of this encounter Miscellaneous Notes * Telephone Encounter - Sandy Mota MA - 06/29/2023 3:51 PM CST Acknowledged. Will be on the lookout for the paperwork OR ANDROID DEVELOPER * Telephone Encounter - Cherelle Corcoran MD - 06/29/2023 1:40 PM CST Given unchanged since last year will fill out without appointment, but please remind areli canseco for annual, recommend scheduling soon as currently booking out to September. thanks OR ANDROID DEVELOPER * Telephone Encounter - Pérez Spencer - 06/29/2023 12:26 PM CST Forms Request Form requested: Existing FMLA/Disability Form Date needed: 07/06/23 How is patient delivering to office: Fax Who is form being returned to? Patient How to return form to patient:sending to patient as attachment via [employer] Additional Comments: pt's daughter called in stating that she needs fmla paperwork signed for her job > she states that these are the same documents that were filled out last year Does message need to be routed? Yes-Action Needed OR ANDROID DEVELOPER documented in this encounter Plan of Treatment Upcoming Encounters Date Type Department Care Team (Latest Contact Info) Description 07/13/2024 9:00 AM SENIOR ANDROID DEVELOPER Hospital Encounter [facility] [address] [place] [address] Jaya Grier MD [address] [facility] [address] [place] [address] 07/13/2024 9:00 AM SENIOR ANDROID DEVELOPER - 07/13/2024 9:30 AM SENIOR ANDROID DEVELOPER Surgery [facility] [address] [place] [address] Jaya Grier MD [address] [facility] [address] [place] [address] ESOPHAGOGASTRODUODENOSCOPY Scheduled Procedures Name Priority Associated Diagnoses Date/Ti me ESOPHAGOGASTRODUODENOSCOPY Anemia, unspecified type Gastritis without bleeding, unspecified chronicity, unspecified gastritis type 07/13/2024 9:00 AM SENIOR ANDROID DEVELOPER COLONOSCOPY Iron deficiency anemia due to chronic blood loss documented as of this encounter Visit Diagnoses Not on filedocumented in this encounter Additional Health Concerns Infection Onset Date Last Indicated Resolved Time COVID: Suspected 07/27/2023 07/27/2023 07/28/2023 12:57 AM SENIOR ANDROID DEVELOPER documented as of this encounter Care Teams Family And Divorce Legal Assistant Relationship Specialty Start Date End Date Cherelle Corcoran MD PCP - General Family Medicine 08/30/19 Mark Queen MD Consulting Physician Infectious Diseases 01/10/20 Rudolph Welch MD [address] [facility] [address] [place] [address] Consulting Physician Infectious Diseases 12/05/22 Markie Ryan MD [address] [facility] [address] [place] [address] Consulting Physician Nephrology 12/05/22 documented as of this encounter
--- OUTSIDE RECORDS SUMMARY | 2024-07-04 04:07 | XMS_ITS | Encounter Summary ---
Author Organization [facility], [facility] Address [address] [place] [address] Phone Care Team Providers Care Process Improvement Engineer Name Role Phone Cherelle Corcoran MD Primary Care Pro vider Mark Queen MD Unavailable [phone] Rudolph Welch MD Unavailable [phone] Markie Ryan MD Unavailable [phone] Reason for Visit * Reason Comments Diabetes Type 2 Encounter Details Date Type Department Care Team (Latest Contact Info) Description 06/30/2023 4:00 PM PRESS READER Office Visit [facility] Endocrinology Metabolism and Lipid [address] [facility] [address], [address] [place] [address] Smith Gibbs MD [address] [place] [address] Type 2 diabetes mellitus with diabetic neuropathy, with long-term current use of insulin (CMS/HCC) (HCC) (Primary Dx); Mixed hyperlipidemia; 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 2 diabetes mellitus (CMS/HCC) (HCC); Diabetic polyneuropathy associated with type 2 diabetes mellitus (CMS/HCC) (HCC); Primary hypertension Social History Tobacco Use Types [...] often do you attend chur ch or taoism services? 1 to 4 times per year [...] medical appointments or from getting medications? No 0806/2022 In the past 12 months, has l [...] in a [facility] (including now)? No 01/20/2023 Personal Safety Answer Date Recorded Getting School Help Needed Denies 06/07 Comments No Sex and Gender Information Value Date Recorded Sex Assigned at Not on file Legal Sex Female 9:03 AM PRESS READER Gender Identity Female 02/08/2020 6:39 PM CDT Sexual Orientation Not on file documented as of this encounter Last Filed Vital Signs Vital Sign Reading Time Taken Comments Blood Pressure 150/65 06/30/2023 3:57 PM PRESS READER Pulse 78 06/30/2023 3:57 PM PRESS READER Temperature - - Respiratory Rate - - Oxygen Saturation - - Inhaled Oxygen Concentration - - Weight 60.8 kg (134 lb) 06/30/2023 3:57 PM PRESS READER Height 157.5 cm (5' 2.01 ) 06/30/2023 3:57 PM CS T Body Mass Index 24.5 06/30/2023 3:57 PM PRESS READER documented in this encounter Patient Instructions * Patient Instructions* Smith Gibbs MD - 06/30/2023 4:00 PM PRESS READER For your diabetes: -Increase Lantus to 18 units at bedtime -Increase Humalog to start at 4 units (base) in addition to the sliding scale 3 times a day before each meal: If blood sugar is 151-200 -- Add 1 unit If blood sugar is 201-250 -- Add 2 units If blood sugar is 251-300 -- Add 3 units If blood sugar is 301-350 -- Add 4 units If blood sugar is >351 -- Add 5 units No Humalog if glucose before meal is below 100 S READER documented in this encounter Ordered Prescriptions Prescription Sig Dispense Quantity Refills Last Filled Start Date End Date flash glucose scanning reader miscIndications:Ty pe 2 diabetes mellitus with diabetic neuropathy, with long-term current use of insulin (HCC) Use Madhav 3 reader to scan Madhav 3 sensor 1 each 06/30/2023 blood-glucose sensor (FreeStyle Madhav 3 Sensor) deviceIndications: Type 2 diabetes mellitus with diabetic neuropathy, with long-term current use of insulin (HCC) Use for continuous glucose monitoring. Change sensor every 14 days 6 each 3 06/30/2023 documented in this encounter Progress Notes * Smith Gibbs MD - 06/30/2023 4:00 PM CST Images from the original note were not included. Endocrine Outpatient Visit Chief Complaint Patient presents with Diabetes Type 2 HPI: Last visit was on 03/24/2023 Patient is a 72 y.o. female with T2DM complicated by neuropathy, CKD stage 4, microalbuminuria, HLD, HTN, HFpEF, history of LE DVT, schizoaffective disorder who is here for T2DM follow-up. Age at time of diagnosis: mid 30s Family history of DM: Mother, sisters with T2DM History of DKA, HHS, hypoglycemia requiring hospitalization: none Symptoms: no polyuria, polydipsia CGM: Madhav 2 sensor. Pattern shows TIR slightly below goal. Fasting and postprandial hyperglycemia. Hypoglycemia events: none Associated symptoms: none Awareness: + <70 Current regimen: -Lantus 15 units qHS -Humalog per correctional scale 2:25 >140 Eating habits: 3 meals, infrequent snacks or high-carb beverages, not adherent to carb controlled diet Physical activity: walks around the house Macrovascular complications CAD: none PAD: unknown TIA/Stroke: none Statin therapy: Atorvastatin 20 mg daily Microvascular complications Neuropathy: +. Used to see post partum nurse and will schedule an appointment Retinopathy: Last dilated retinal exam was more than a year ago - no reported DR or DME Nephropathy: +CKD stage 4, on ACEi/ARBs (Valsartan 40 mg daily) BP above goal; 180s for SBP at home BMI/Wt: 24/130 lbs > 24/134 lbs A1c Trend: 7.7% (03/2023) > 8.1% (06/2023) Pertinent labs from 02/2023: UaCR +4000 Cr 2.2 GFR 23 08/2021 Total cholesterol 84 TG 153 HDL 33 LDL 20 Current Outpatient Medications on File Prior to Visit Medication Sig acetaminophen (TYLENOL) 325 mg tablet Take 2 tablets (650 mg total) by mouth every 6 (six) hours asneeded for pain atorvastatin (LIPITOR) 20 mg tablet Take 1 tablet (20 mg total) by mouth nightly benztropine (COGENTIN) 1 mg tablet Take 1.5 tablets (1.5 mg total) by mouth nightly (Patient takingdifferently: Take 1.5 tablets (1.5 mg total) by mouth 2 (two) times a day) conner.stocking,thigh,reg,med misc Wear as much as possible ferrous sulfate 325 mg (65 mg of elemental iron) tablet Take 1 tablet (325 mg total) by mouth dailywith breakfast (Patient taking differently: Take 1 tablet (325 mg total) by mouth 2 (two) times a day) flash glucose sensor (SkyCacheyle Madhav 2 Sensor) kit Use to continually monitor glucose, change every 14 days insulin glargine 100 unit/mL (3 mL) pen for injection Inject 15 Units under the skin nightly Last refill before Jun appointment insulin lispro (HumaLOG, ADMELOG) 100 unit/mL pen for injection Inject 0-12 Units under the skin 3 (three) times a day before meals per sliding scale --> BG 0-140 = 0 units BG 141-174 = 2 units [id number] = 4 units BG 200-249 = 6 units BG 250-299 = 8 units BG 300-349 = 10 units BG 350-400 = 12 units BG >400 = call lidocaine (ASPERCREME) 4 % adhesive patch,medicated Place 1 patch on the skin daily to lower back pen needle, diabetic 32 gauge x 5/32 needle 1 Units 4 (four) times a day valsartan (DIOVAN) 40 mg tablet Take 1 tablet (40 mg total) by mouth daily [DISCONTINUED] flash glucose scanning reader ([employer] Madhav 2 Shasta) [facility] Use to continually monitor glucose albuterol HFA (ProAir HFA) 90 mcg/actuation inhaler Inhale 2 puffs every 4 (four) hours as needed for wheezing or shortness of breath [DISCONTINUED] omeprazole (PriLOSEC) 20 mg capsule Take 1 capsule (20 mg total) by mouth daily No current facility-administered medications on file prior to visit. Review of Systems Review of systems per HPI and otherwise all other systems are negative. OBJECTIVES Vitals BP 150/65 Pulse 78 Ht 157.5 cm (5' 2.01 ) Wt 60.8 kg (134 lb) BMI 24.50 kg/m?? Physical exam: General Appearance: No apparent [...] during the visit Assessment/Plan: Patient is a 72 y.o. female with T2DM complicated by neuropathy, CKD stage 4, microalbuminuria, HLD, HTN, HFpEF, history of LE DVT, schizoaffective disorder who is here for T2DM follow-up. 1. Type 2 diabetes mellitus with diabetic neuropathy, with long-term current use of insulin ([facility]) ([facility]) Poor glycemic control as suggested by patient's most recent HbA1c / GMI / TIR We discussed targets which include HbA1c < 8%, TIR > 50%, goal BG 100-180 To achieve targets, adherence to prescribed regimen and healthier lifestyle modifications are crucial. I advised to follow MyPlate method or mediterranean- based diet (where a healthy dietary eating pattern is one that is rich in fruits, vegetables, whole grain, fish, and poultry and low in red meat, processed foods, sugar-sweetened beverages, and starchy foods) and ensure at least 30 mins of moderate physical activity 5 days a week. If experiencing symptoms of hypoglycemia or BG below 70, follow the rule of 15/15-15 rule. Adjustments to current regimen: -Increase Lantus to 18 units qHS -Increase Humalog to 4 units +1:50 >150 TIDAC -CGM sensors: switch Madhav 2 to 3 sensor with reader -Continuous glucose monitor alarms should be set to alert to hypoglycemia 2. Mixed hyperlipidemia -LDL at goal -Continue Atorvastatin 20 mg daily 3. 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 2 diabetes mellitus ([facility]) ([facility]) -Following with nephrology 4. Diabetic polyneuropathy associated with type 2 diabetes mellitus ([facility]) ([facility]) -Stable 5. Primary hypertension -BP above goal -Advised to check at home and discuss with nephrology re-initiation of carvedilol and Lasix as appropriate. Orders Placed This Encounter Procedures Lipid panel These lab test should be done fasting. This means do not eat or drink for at least 12 hours prior to getting your blood drawn. Standing Status: Future Standing Expiration Date: 06/30/2024 POCT hemoglobin A1c New Medications Ordered This Visit blood-glucose sensor (FreeStyle Madhav 3 Sensor) device Sig: Use for continuous glucose monitoring. Change sensor every 14 days Dispense: 6 each Refill: 3 flash glucose scanning reader misc Sig: Use Madhav 3 reader to scan Madhav 3 sensor Dispense: 1 each Refill: 0 Plan: Return in about 4 months (around 10/29/2023) for Next scheduled follow up. My total encounter time on 06/30/23 was 45 minutes which was spent in the activities documented in the note. This includes time spent prior to the visit and after the visit in direct care of the patient. Smith Gibbs MD Instructor of Medicine Endocrinology, Metabolism and Lipid Research [facility] in [place] S READER documented in this encounter Plan of Treatment Upcoming Encounters Date Type Department Care Team (Latest Contact Info) Description 07/13/2024 9:00 AM PRESS READER Hospital Encounter [facility] GI Lab [address] [place] [address] Jaya Grier MD [address] [facility] [facility] [address] [place] [address] 07/13/2024 9:00 AM PRESS READER - 07/13/2024 9:30 AM PRESS READER Surgery [facility] GI Lab [address] [place] [address] Jaya Grier MD [address] [facility] [address] [place] [address] ESOPHAGOGASTRODUODENOSCOPY Scheduled Procedures Name Priority Associated Diagnoses Date/Ti me ESOPHAGOGASTRODUODENOSCOPY Anemia, unspecified type Gastritis without bleeding, unspecified chronicity, unspecified gastritis type 07/13/2024 9:00 AM PRESS READER COLONOSCOPY Iron deficiency anemia due to chronic blood loss documented as of this encounter Procedures Procedure Name Priority Date/Time Associated Diagnosis Comments POCT HEMOGLOBIN A1C Routine 06/30/2023 4 :05 PM PRESS READER Type 2 diabetes mellitus with diabetic neuropathy, with long-term current use of insulin (CMS/HCC) ([facility]) documented in this encounter Results * POCT hemoglobin A1c (06/30/2023 4:05 PM PRESS READER) Hemoglobin A1C, POC 8.1 % Blood 06/30/2023 4:05 PM PRESS READER Smith Gibbs MD POINT OF CARE TEST ORDERABLE S Final Result documented in this encounter Visit Diagnoses Diagnosis Type 2 diabetes mellitus with diabetic neuropathy, with long-term current use of insulin (HCC)- Primary Mixed hyperlipidemia 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 2 diabetes mellitus (CMS/HCC) (HCC) Diabetic polyneuropathy associated with type 2 diabetes mellitus (CMS/HCC) (HCC) Primary hypertension Unspecified essential hypertension Anemia, unspecified type Gastritis without bleeding, unspecified chronicity, unspecified gastritis type documented in this encounter Discontinued Medications Medication Sig Discontinue Reason Start Date End Da te flash glucose scanning reader (FreeStyle Madhav 2 Shasta) miscIndications:Type 2 diabetes mellitus with diabetic neuropathy, with long-term current use of insulin ([facility]) Use to continually monitor glucose 03/24/2023 06/30/2023 documented as of this encounter Care Teams Process Improvement Engineer Relationship Specialty Start Date End Date Cherelle Corcoran MD PCP - General Family Medicine 08/30/19 Mark Queen MD Consulting Physician Infectious Diseases 01/10/20 Rudolph Welch MD [address] [facility] [address] [facility] [address] [place] [address] Consulting Physician Infectious Diseases 12/05/22 Markie Ryan MD [address] [facility] [address] [address] Consulting Physician Nephrology 12/05/22 documented as of this encounter
--- OUTSIDE RECORDS SUMMARY | 2024-07-04 04:08 | XMS_ITS | Encounter Summary ---
Author Organization [facility] Address [address] [address] Care Team Providers Care Bulk Gas Specialist Name Role Phone Cherelle Corcoran MD Primary Care Pro vider Mark Queen MD Unavailable [phone] Anam Costa [facility] Unavailable [facility] Rudolph Welch MD Unavailable [phone] Markie Ryan MD Unavailable [phone] Nadege Ramírez RN Unavailable [phone] Reason for Visit * Reason Onset Date Comments Case Management- Primary Care 02/17/2023 Call Back 02/18/2023 Encounter Details Date Type Department Care Team (Late st Contact Info) Description 02/17/[address] [facility] Primary [facility] at [place] [address] [facility] [address] [place] [address] Nadege Ramírez, RN [address] [place] [address] [address] [facility] [phone] Case Management- Primary Care; Call Back Social History Tobacco Use Types Packs/Day Years [...] you attend chur ch or jewish services? 1 to 4 times per year [...] in a halfway (including now)? No 01/20/2023 Comments No Sex and Gender Information Value Date Recorded Sex Assigned at Not on file Legal Sex Female 9:03 AM CHIP UNLOADER Gender Identity Female 02/08/2020 6:39 PM CDT Sexual Orientation Not on file documented as of this encounter Miscellaneous Notes * Telephone Encounter - Sandy Mota MA - 02/18/2023 8:34 AM CDT Spoke to pt daughter and advised her of results. Nothing further at this time * Telephone Encounter - Brook Sinclair - 02/18/2023 8:28 AM CDT Call Back Caller???s Concern: Patient's daughter calls back and says returning call. No HIPAA form signed. Call warm transfer office/[place]. Caller???s Call back #: [phone] Does message need to be routed? No * Telephone Encounter - Sandy Mota MA - 02/18/2023 8:22 AM CDT Lmov for daughter to return call. Please advise that [employer] result note in for review. Thanks! * Telephone Encounter - Cherelle Corcoran MD - 02/17/2023 5:11 PM CDT Result note available in [employer] * Telephone Encounter - Nadege Ramírez RN - 02/17/2023 1:08 PM CDT Zhou, Patient's daughter Areli states patient completed an upper extremity ultrasound yesterday and is wanting to know if PCP could review and call them with results. Please assist. Thanks! Nadege Ramírez BSN, RN [facility] Care Management documented in this encounter Plan of Treatment Upcoming Encounters Date Type Department Care Team (Latest Contact Info) Description 07/13/2024 9:00 AM CHIP UNLOADER Hospital Encounter [facility] GI Lab [address] [place] [address] Jaya Grier MD [address] [place] [address] [address] [place] [address] 07/13/2024 9:00 AM CHIP UNLOADER - 07/13/2024 9:30 AM CHIP UNLOADER Surgery [facility] GI Lab [address] [place] [address] Jaya Grier MD [address] [place] [address] [address] [place] [address] ESOPHAGOGASTRODUODENOSCOPY Scheduled Procedures Name Priority Associated Diagnoses Date/Ti nc ESOPHAGOGASTRODUODENOSCOPY Anemia, unspecified type Gastritis without bleeding, unspecified chronicity, unspecified gastritis type 07/13/2024 9:00 AM CHIP UNLOADER COLONOSCOPY Iron deficiency anemia due to chronic blood loss documented as of this encounter Visit Diagnoses Not on filedocumented in this encounter Additional Health Concerns Infection Onset Date Last Indicated Resolved Time MRSA Comment:Toe 11/08/22, 12/12/22 11/08/2022 12/12/2022 06/10/2023 3:05 AM CHIP UNLOADER documented as of this encounter Care Teams Bulk Gas Specialist Relationship Specialty Start Date End Date Cherelle Corcoran MD PCP - General Family Medicine 08/30/19 Mark Queen MD Consulting Physician Infectious Diseases 01/10/20 Anam Costa LCSW Pediatric Orthodontist 08/08/22 02/18/23 Rudolph Welch MD [address] [facility] [address] [place] [address] Consulting Physician Infectious Diseases 12/05/22 Markie Ryan MD [address] [facility] [address] [place] [address] Consulting Physician Nephrology 12/05/22 Nadege Ramírez, RN [address] [place] [address] [address] [place] [address] Packerhead Machine Operator 01/20/23 02/23/23 documented as of this encounter
--- OUTSIDE RECORDS SUMMARY | 2024-07-04 04:08 | XMS_ITS | Encounter Summary ---
Author Organization [facility] Address [address] [place] [address] Care Team Providers Care Magician/Illusionist Name Role Phone Cherelle Corcoran MD Primary Care Pro vider Mark Queen MD Unavailable + [phone] Anam Costa [facility] Unavailable Unavailabl e Rudolph Welch MD Unavailable [phone] Markie Ryan MD Unavailable [phone] Nadege Ramírez RN Unavailable [phone] Reason for Referral * Home Health (Routine) - Closed Specialty Diagnoses / Procedures Referred By Contac t Referred To Contact Home Health Services / Home Health and Hospice Diagnoses Late onset Alzheimer's dementia without behavioral disturbance (HCC) Other diabetic neurological complication associated with type 2 diabetes mellitus (HCC) Toe necrosis (CMS/HCC) (HCC) Osteomyelitis of other site, unspecified type (HCC) Cherelle Corcoran MD [facility] [address] Phone: tel: fax: [facility] Home Care Services [facility] [address] [place] [address] Referral ID Status Reason Start Date Expiration Date V isits Requested Visits Authorized [id number] Closed Specialty Services Required 01/20/2023 02/19/2024 1 [address] [facility] Primary disciplines requested: Physical Therapy, M[facility] Secondary disciplines requested: Occupational Therapy Home Health [...] face to face encounter occurred on (date): 01/16/2023 The encounter with the patient was in whole, or in part, for the following medical condition, which is the primary reason for home health care. (List medical condition): osteomyelitis in toe I certify that, based on my findings, the following services are medically necessary skilled home health services: Therapy to Eval/Tx Clinical findings that support the need for home care: Medical condition requiring skilled assessment/education, Lack of knowledge regarding medications, requires education and assessment, Wound requiring care, assessment, and instruction I certify that my clinical findings support patient's homebound status. Homebound criteria met because: Requires assistance of another to leave home safely, Abnormal gait/unsteady balance resulting in fall risk, Disorders of thought processes impacting decision making and safety Reason for Visit * Reason Onset Date Comments Additional Services Or Orders 01/19/2023 Encounter Details Date Type Department Care Team (Late st Contact Info) Description 01/19/[address] [facility] Primary Care at [address] [place] [address] Cherelle Corcoran MD [address] [place] [phone] Additional Services Or Orders Social History [...] on file Legal Sex Female 9:03 AM INSTRUMENTAL MUSICIAN Gender Identity Female 02/08/2020 6:39 PM CDT Sexual Orientation Not on file documented as of this encounter Miscellaneous Notes * Telephone Encounter - Sandy Mota MA - 01/21/2023 12:31 PM CDT Spoke to Ursula and she stated that 01/28 is okay to start HH. Thanks! * Telephone Encounter - Sandy Mota MA - 01/21/2023 9:13 AM CDT Lmov for Ursula to return call. [facility] HH cannot start until 01/28/2023 and wanting to know if that's okay or wanting to be sent somewhere else. Thanks! * Telephone Encounter - Sandy Mota MA - 01/20/2023 11:24 AM CDT Acknowledged. * Telephone Encounter - Cherelle Corcoran MD - 01/20/2023 11:06 AM CDT Order signed * Telephone Encounter - Libia Mills - 01/19/2023 12:10 PM CDT Additional Services or Orders Type of Service Requested:Occupational Therapy, Physical Therapy, and Home Health Duration/Number of Visits: no Is a verbal order acceptable? Yes Reason for Request (e.g. condition/symptom, date of COVID exposure if applicable): osteomyelitis intoe Details Regarding Additional Services (e.g. type of home health, type of equipment, type of test, etc.): Came from [facility] and need OT, PT HH and nursing Where will services be performed? (if outside of the practice, facility name, address, phone/fax offacility): at patient home Caller's Callback #: [phone] Additional Comments: Came from [facility] and need OT, PT HH and nursing Does message need to be routed? Yes-Action Needed documented in this encounter Plan of Treatment Upcoming Encounters Date Type Department Care Team (Latest Contact Info) Description 07/13/2024 9:00 AM INSTRUMENTAL MUSICIAN Hospital Encounter [facility] [address] [place] [phone] Jaya Grier MD [address] [place] [address] [address] [place] [address] 07/13/2024 9:00 AM INSTRUMENTAL MUSICIAN - 07/13/2024 9:30 AM INSTRUMENTAL MUSICIAN Surgery [facility] [address] [place] [address] Jaya Grier MD [address] [place] [address] [address] [place] [address] ESOPHAGOGASTRODUODENOSCOPY Scheduled Procedures Name Priority Associated Diagnoses Date/Ti tx ESOPHAGOGASTRODUODENOSCOPY Anemia, unspecified type Gastritis without bleeding, unspecified chronicity, unspecified gastritis type 07/13/2024 9:00 AM INSTRUMENTAL MUSICIAN COLONOSCOPY Iron deficiency anemia due to chronic blood loss Scheduled Referrals Name Type Priority Associated Diagnoses Orde r Schedule Ambulatory referral to Home Health Outpatient Referral Routine Late onset Alzheimer's dementia without behavioral disturbance (HCC) Other diabetic neurological complication associated with type 2 diabetes mellitus (HCC) Toe necrosis (CMS/HCC) (HCC) Osteomyelitis of other site, unspecified type (HCC) 1 Occurrences starting 01/20/2023 until 07/23/2023 documented as of this encounter Visit Diagnoses Diagnosis Late onset Alzheimer's dementia without behavioral disturbance (HCC)- Primary Other diabetic neurological complication associated with type 2 diabetes mellitus (HCC) Toe necrosis (CMS/HCC) (HCC) Osteomyelitis of other site, unspecified type (HCC) Anemia, unspecified type Gastritis without bleeding, unspecified chronicity, unspecified gastritis type documented in this encounter Additional Health Concerns Infection Onset Date Last Indicated Resolved Time MRSA Comment:Toe 11/08/22, 12/12/22 11/08/2022 12/12/2022 06/10/2023 3:05 AM INSTRUMENTAL MUSICIAN documented as of this encounter Care Teams Magician/Illusionist Relationship Specialty Start Date End Date Cherelle Corcoran MD PCP - General Family Medicine 08/30/19 Mark Queen MD Consulting Physician Infectious Diseases 01/10/20 Anam Costa LCSW Mapping Analyst 08/08/22 02/18/23 Rudolph Welch MD [address] [facility] [address] [place] [address] Consulting Physician Infectious Diseases 12/05/22 Markie Ryan MD [address] [facility] [address] [facility] [address] [place] [address] Consulting Physician Nephrology 12/05/22 Nadege Ramírez, RN [address] [place] [address] [address] [place] [address] International Marketing Intern 01/20/23 02/23/23 documented as of this encounter
--- OUTSIDE RECORDS SUMMARY | 2024-07-04 04:08 | XMS_ITS | Encounter Summary ---
Author Organization [facility] Address [address] [place] [address] Care Team Providers Care Asphalt Paving Machine Operator Name Role Phone Cherelle Corcoran MD Primary Care Pro vider Mark Queen MD Unavailable + [phone] Anam Costa [facility] Unavailable Unavailabl e Rudolph Welch MD Unavailable [phone] Markie Ryan MD Unavailable [phone] Nadege Ramírez RN Unavailable Reason for Visit * Reason Onset Date Comments Additional Services Or Orders 02/02/2023 Encounter Details Date Type Department Care Team ([facility] Contact Info) Description 02/02/[address] [facility] Primary Care at [address] [address] Cherelle Corcoran MD [address] [place] [address] Additional Services Or Orders Social History [...] in a fpc (including now)? No 01/20/2023 Comments No Sex and Gender Information Value Date Recorded Sex Assigned at Not on file Legal Sex Female 9:03 AM OPTICAL LAB TECHNICIAN Gender Identity Female 02/08/2020 6:39 PM CDT Sexual Orientation Not on file documented as of this encounter Miscellaneous Notes * Telephone Encounter - Sandy Mota MA - 02/03/2023 8:07 AM CDT Spoke to Disire and verbal was given. Nothing further at this time. Thanks! * Telephone Encounter - Jon Powell - 02/02/2023 3:40 PM CDT Additional Services or Orders Type of Service Requested:Physical Therapy and Home Health Duration/Number of Visits: 1x a week for 4 weeks Is a verbal order acceptable? Verbal Reason for Request (e.g. condition/symptom, date of COVID exposure if applicable): Balance and safety in the patient home. Details Regarding Additional Services (e.g. type of home health, type of equipment, type of test, etc.): Home Health and PT requested Where will services be performed? (if outside of the practice, facility name, address, phone/fax offacility): Patient home Caller's Callback #: [phone] Additional Comments: please leave a vm if she doesn't answer. Does message need to be routed? Yes-Action Needed documented in this encounter Plan of Treatment Upcoming Encounters Date Type Department Care Team (Latest Contact Info) Description 07/13/2024 9:00 AM OPTICAL LAB TECHNICIAN Hospital Encounter [facility] [address] [place] [address] Jaya Grier MD [address] [address] [facility] [address] [place] [address] 07/13/2024 9:00 AM OPTICAL LAB TECHNICIAN - 07/13/2024 9:30 AM OPTICAL LAB TECHNICIAN Surgery [facility] [address] [place] [address] Jaya Grier MD [address] [facility] [address] [place] [address] ESOPHAGOGASTRODUODENOSCOPY Scheduled Procedures Name Priority Associated Diagnoses Date/Ti me ESOPHAGOGASTRODUODENOSCOPY Anemia, unspecified type Gastritis without bleeding, unspecified chronicity, unspecified gastritis type 07/13/2024 9:00 AM OPTICAL LAB TECHNICIAN COLONOSCOPY Iron deficiency anemia due to chronic blood loss documented as of this encounter Visit Diagnoses Not on filedocumented in this encounter Additional Health Concerns Infection Onset Date Last Indicated Resolved Time MRSA Comment:Toe 11/08/22, 12/12/22 11/08/2022 12/12/2022 06/10/2023 3:05 AM OPTICAL LAB TECHNICIAN documented as of this encounter Care Teams Asphalt Paving Machine Operator Relationship Specialty Start Date End Date Cherelle Corcoran MD PCP - General Family Medicine 08/30/19 Mark Queen MD Consulting Physician Infectious Diseases 01/10/20 Anam Costa LCSW Summer Camp Counselor 08/08/22 02/18/23 Rudolph Welch MD [address] [facility] [address] [place] [address] Consulting Physician Infectious Diseases 12/05/22 Markie Ryan MD [address] [facility] [address] [place] [address] Consulting Physician Nephrology 12/05/22 Nadege Ramírez, RN [address] [place] [address] DR [address] [place] [address] Utility Helicopter Repairer 01/20/23 02/23/23 documented as of this encounter
--- OUTSIDE RECORDS SUMMARY | 2024-07-04 04:08 | XMS_ITS | Encounter Summary ---
Author Organization [facility] Healthcare Address [address] [place] [address] Care Team Providers Care Liquor Maker Name Role Phone Cherelle Corcoran MD Primary Care Pro vider Mark Queen MD Unavailable + [phone] Anam Costa [facility] Unavailable Unavailabl e Rudolph Welch MD Unavailable [phone] Markie Ryan MD Unavailable [phone] Nadege Ramírez RN Unavailable [phone] Encounter Details Date Type Department Care Team (Late st Contact Info) Description 01/23/2023 9:35 AM CDT Lab [facility] [address] [place] [id number] Stage 3b chronic kidney disease (HCC); Anemia [...] How often do you attend chur or scientology services? 1 to 4 times [...] on file Legal Sex Female 9:03 AM LAND LEASING INFORMATION CLERK Gender Identity Female 02/08/2020 6:39 PM CDT Sexual Orientation Not on file documented as of this encounter Plan of Treatment Upcoming Encounters Date Type Department Care Team (Latest Contact Info) Description 07/13/2024 9:00 AM LAND LEASING INFORMATION CLERK Hospital Encounter [facility] [address] [place] [address] Jaya Grier MD [facility] [facility] [address] [place] [address] 07/13/2024 9:00 AM LAND LEASING INFORMATION CLERK - 07/13/2024 9:30 AM LAND LEASING INFORMATION CLERK Surgery [facility] [address] [place] [address] Jaya Grier MD [facility] [facility] [address] [place] [address] ESOPHAGOGASTRODUODENOSCOPY Scheduled Procedures Name Priority Associated Diagnoses Date/Ti me ESOPHAGOGASTRODUODENOSCOPY Anemia, unspecified type Gastritis without bleeding, unspecified chronicity, unspecified gastritis type 07/13/2024 9:00 AM LAND LEASING INFORMATION CLERK COLONOSCOPY Iron deficiency anemia due to chronic blood loss documented as of this encounter Procedures Procedure Name Priority Date/Time Associated Diagnosis Comments EGFR Routine 01/23/2023 9:47 AM CDT Stage 3b chronic kidney disease (HCC) Anemia in stage 3b chronic kidney disease (HCC) Diabetic nephropathy (CMS/HCC) (HCC) Benign hypertensive kidney disease with chronic kidney disease stage I through stage IV, or unspecified(403.10) DIFFERENTIAL AUTO Routine 01/23/2023 9:4 7 AM CDT Stage 3b chronic kidney disease (HCC) Anemia in stage 3b chronic kidney disease (HCC) Diabetic nephropathy (CMS/HCC) (HCC) Benign hypertensive kidney disease with chronic kidney disease stage I through stage IV, or unspecified(403.10) IRON PROFILE W/ IBC Routine 01/23/2023 9 :47 AM CDT Stage 3b chronic kidney disease (HCC) Anemia in stage 3b chronic kidney disease (HCC) Diabetic nephropathy (CMS/HCC) (HCC) Benign hypertensive kidney disease with chronic kidney disease stage I through stage IV, or unspecified(403.10) CBC WITH AUTO DIFFERENTIAL Routine 01/23/2023 9:47 AM CDT Stage 3b chronic kidney disease (HCC) Anemia in stage 3b chronic kidney disease (HCC) Diabetic nephropathy (CMS/HCC) (HCC) Benign hypertensive kidney disease with chronic kidney disease stage I through stage IV, or unspecified(403.10) PTH Routine 01/23/2023 9:47 AM CDT Stage 3b chronic kidney disease (HCC) Anemia in stage 3b chronic kidney disease (HCC) Diabetic nephropathy (CMS/HCC) (HCC) Benign hypertensive kidney disease with chronic kidney disease stage I through stage IV, or unspecified(403.10) BASIC METABOLIC PANEL Routine 01/23/2023 9:47 AM CDT Stage 3b chronic kidney disease (HCC) Anemia in stage 3b chronic kidney disease (HCC) Diabetic nephropathy (CMS/HCC) (HCC) Benign hypertensive kidney disease with chronic kidney disease stage I through stage IV, or unspecified(403.10) documented in this encounter Results * eGFR (01/23/2023 9:47 AM CDT) [facility] eGFR 25 mL/min/1. 73 m2 NILSA RODRIGES Comment: Interpretive [...] was last reviewed 2021. Testing performed by: [address] [address] Blood 01/23/2023 9:47 AM CDT 01/23/2023 11:20 AM CDT us Markie Ryan MD LAB BLOOD ORDERABLES Final Re sult NILSA [address] [facility] Department [place] [address] * Differential, auto (01/23/2023 9:47 AM CDT) Neutrophil abs 5.6 1.7 - 6.5 K/cumm NILSA Comment:Testing performed by : [address] [address] Imm gran abs 0.0 0.0 - 0.1 K/cumm NILSA RODRIGES Comment:Testing performed by : [address] [address] Lymphocyte abs 2.1 0.8 - 3.3 K/cumm NILSA Comment:Testing performed by : [address] [address] Monocyte abs 0.4 0.2 - 0.8 K/cumm NILSA Comment:Testing performed by : [address] [address] Eosinophil abs 0.1 0.0 - 0.5 K/cumm NILSA Comment:Testing performed by : [address] [address] Basophil abs 0.0 0.0 - 0.1 K/cumm NILSA Comment:Testing performed by : [address] [address] Neutrophil pct 67.5 % CERELLEN Comment: Interpretive Data Percent cell count reference ranges are not reported, since discordance with absolute values may lead to misinterpretation of CBC data. Current Interpretive Data was last revised on 2017. Testing performed by: [address] [address] Imm gran pct 0.2 % [facility] Comment: Interpretive Data Percent cell count reference ranges are not reported, since discordance with absolute values may lead to misinterpretation of CBC data. Current Interpretive Data was last revised on 2017. Testing performed by: [address] [address] Lymphocyte pct 25.9 % [facility] Comment: Interpretive Data Percent cell count reference ranges are not reported, since discordance with absolute values may lead to misinterpretation of CBC data. Current Interpretive Data was last revised on 2017. Testing performed by: [address] [address] Monocyte pct 4.4 % [facility] Comment: Interpretive Data Percent cell count reference ranges are not reported, since discordance with absolute values may lead to misinterpretation of CBC data. Current Interpretive Data was last revised on 2017. Testing performed by: [address] [address] Eosinophil pct 1.5 % NILSA Comment: Interpretive Data Percent cell count reference ranges are not reported, since discordance with absolute values may lead to misinterpretation of CBC data. Current Interpretive Data was last revised on 2017. Testing performed by: [address] [address] Basophil pct 0.5 % NILSA Comment: Interpretive Data Percent cell count reference ranges are not reported, since discordance with absolute values may lead to misinterpretation of CBC data. Current Interpretive Data was last revised on 2017. Testing performed by: [address] [address] Blood 01/23/2023 9:47 AM CDT 01/23/2023 11:20 AM CDT us Markie Ryan MD LAB BLOOD ORDERABLES Final Re sult [facility] [address] [facility] Department [place] [address] * (ABNORMAL) Basic metabolic panel (01/23/2023 9:47 AM CDT) Sodium 144 135 - 145 mmol/L NILSA Comment:Testing performed by : [address] [address] Potassium, pl 4.7 3.3 - 4.9 mmol/L NILSA Comment:Testing performed by : [address] [address] Chloride 107 97 - 110 mmol/L NILSA Comment:Testing performed by : [address] [address] CO2 23 22 - 32 mmol/L NILSA Comment:Testing performed by : [address] [address] Anion gap 14 2 - 15 mmol/L NILSA Comment:Testing performed by : [address] [address] BUN 33(H) 6 - 25 mg/dL NILSA Comment:Testing performed by : [address] [address] Creatinine 2.10(H) 0.60 - 1.10 mg/dL NILSA Comment:Testing performed by : [address] [address] Glucose 196 70 - 199 mg/dL NILSA Comment: Interpretive [...] was last revised 2022. Testing performed by: [address] [address] Calcium 10.0 8.5 - 10.3 mg/dL NILSA Comment:Testing performed by : [address] [address] Blood 01/23/2023 9:47 AM CDT 01/23/2023 11:20 AM CDT Narrative NILSA - 01/23/2023 12:22 PM CDT Has the patient fasted?->No us Markie Ryan MD LAB BLOOD ORDERABLES Final Re sult NILSA [address] [facility] Department [place] [address] * (ABNORMAL) CBC with auto differential (01/23/2023 9:47 AM CDT) [facility] WBC 8.2 3.8 - 9.9 K/cumm NILSA RODRIGES Comment:Testing performed by : [address] [address] Hgb 9.7(L) 11.9 - 15.5 g/dL NILSA Comment:Testing performed by : [address] [address] Hct 30.9(L) 35.6 - 45.5 % NILSA RODRIGES Comment:Testing performed by : [address] [address] Plt 293 150 - 400 K/cumm NILSA Comment:Testing performed by : [address] [address] MPV 10.5 9.1 - 12.3 fL NILSA RODRIGES Comment:Testing performed by : [address] [address] RBC 3.32(L) 3.90 - 5.20 M/cumm NILSA RODRIGES Comment:Testing performed by : [address] [address] MCV 93.1 81.3 - 96.4 fL NILSA Comment:Testing performed by : [address] [address] MCH 29.2 27.1 - 33.3 pg NILSA RODRIGES Comment:Testing performed by : [address] [address] MCHC 31.4(L) 32.3 - 35.7 g/dL NILSA RODRIGES Comment:Testing performed by : [address], [address] RDW CV 15.3(H) 11.1 - 14.9 % NILSA Comment:Testing performed by : [address], [address] RDW SD 52.1(H) 35.7 - 48.1 fL NILSA RODRIGES Comment:Testing performed by : [address] [address] NRBC abs 0.00 0.00 - 0.01 K/cumm NILSA RODRIGES Comment:Testing performed by : [address] [address] Blood 01/23/2023 9:47 AM CDT 01/23/2023 11:20 AM CDT us Markie Ryan MD LAB BLOOD ORDERABLES Final Re sult NILSA RODRIGES [address] [facility] Department [place] [address] * (ABNORMAL) PTH (01/23/2023 9:47 AM CDT) PTH 71(H) 15 - 65 pg/mL NILSA RODRIGES Comment:Testing performed by : [address] [address] Blood 01/23/2023 9:47 AM CDT 01/23/2023 11:20 AM CDT Markie Ryan MD LAB BLOOD ORDERABLES Final Re sult Performing Organization Address [facility] Co de Phone Number NILSA [address] [place] [address] * (ABNORMAL) Iron profile w/ IBC (01/23/2023 9:47 AM CDT) Iron 61 35 - 145 mcg/dL NILSA Comment:Testing performed by : [address] [address] TIBC 183(L) 250 - 400 mcg/dL NILSA Comment:Testing performed by : [address] [address] Transferrin saturation 33 20 - 50 % NILSA Comment:Testing performed by : [address] [address] Blood 01/23/2023 9:47 AM CDT 01/23/2023 11:20 AM CDT Markie Ryan MD LAB BLOOD ORDERABLES Final Re sult Performing Organization Address [facility] Co de Phone Number CARLOS ENRIQUE[address] [place] [address] documented in this encounter Visit Diagnoses Diagnosis [...] 11/08/22, 12/12/22 11/08/2022 12/12/2022 06/10/2023 3:05 AM LAND LEASING INFORMATION CLERK documented as of this encounter Care Teams Liquor Maker Relationship Specialty Start Date End Date Cherelle Corcoran MD PCP - General Family Medicine 08/30/19 Mark Queen MD Consulting Physician Infectious Diseases 01/10/20 Anam Costa LCSW Data Steward 08/08/22 02/18/23 Rudolph Welch MD [address] [facility] [address] [place] [address] Consulting Physician Infectious Diseases 12/05/22 Markie Ryan MD [address] [facility] [address] [place] [address] Consulting Physician Nephrology 12/05/22 Nadege Ramírez RN [address] [place] [address] [address] [place] [address] Sawing And Assembly Supervisor 01/20/23 02/23/23 documented as of this encounter
--- OUTSIDE RECORDS SUMMARY | 2024-07-04 04:08 | XMS_ITS | Encounter Summary ---
Author Organization [facility] Address [address] [place] [address] Care Team Providers Care Environmental Health Specialist Name Role Phone Cherelle Corcoran MD Primary Care Pro vider Mark Queen MD Unavailable + [phone] Anam Costa [facility] Unavailable Unavailtrios health e Rudolph Welch MD Unavailable [phone] Markie Ryan MD Unavailable [phone] Nadege Ramírez RN Unavailable [phone] Reason for Visit * Reason Onset Date Comments Appointment Request 01/20/2023 JOY Call Back 01/21/2023 Encounter Details Date Type Department Care Team (Late st Contact Info) Description 01/20/2023 Telephone [facility] [place] [address] [facility] [address] [place] [address] Nadege Ramírez, RN [address] [place] [address] [address] [place] [address] Appointment Request (JOY); Call Back Social History Tobacco Use Types [...] often do you attend chur ch or restorationist services? 1 to 4 times per year [...] in a longterm (including now)? No 01/20/2023 Comments No Sex and Gender Information Value Date Recorded Sex Assigned at Not on file Legal Sex Female 9:03 AM AIR BRAKE MECHANIC Gender Identity Female 02/08/2020 6:39 PM CDT Sexual Orientation Not on file documented as of this encounter Miscellaneous Notes * Telephone Encounter - Barb Sifuentes - 01/21/2023 12:20 PM CDT Call Back Caller???s Concern: Warm transferred her to Valeria. Caller???s Call back #: - Does message need to be routed? No * Telephone Encounter - Valeria Jackson - 01/21/2023 9:10 AM CDT LMOR asking patient to contact clinic to schedule appointment with Dr Corcoran for this week (per Dr Corcoran)./ts * Telephone Encounter - Nadege Ramírez RN - 01/20/2023 12:37 PM CDT Zhou, Patient in need of JOY follow up appointment due to discharge from :[facility] on 01/17. Patient's appt on 01/29 is outside the 10 day window, Please assist in setting up on or before 01/27. Thanks. Nadege Ramírez RN BSN ACO Care Management documented in this encounter Plan of Treatment Upcoming Encounters Date Type Department Care Team (Latest Contact Info) Description 07/13/2024 9:00 AM AIR BRAKE MECHANIC Hospital Encounter [facility] GI Lab [address] [place] [address] Jaya Grier MD [address] [facility] [address] [place] [address] 07/13/2024 9:00 AM AIR BRAKE MECHANIC - 07/13/2024 9:30 AM AIR BRAKE MECHANIC Surgery [facility] GI Lab [address] [place] [address] Jaya Grier MD [address] [facility] [address] [place] [address] ESOPHAGOGASTRODUODENOSCOPY Scheduled Procedures Name Priority Associated Diagnoses Date/Ti me ESOPHAGOGASTRODUODENOSCOPY Anemia, unspecified type Gastritis without bleeding, unspecified chronicity, unspecified gastritis type 07/13/2024 9:00 AM AIR BRAKE MECHANIC COLONOSCOPY Iron deficiency anemia due to chronic blood loss documented as of this encounter Visit Diagnoses Not on filedocumented in this encounter Additional Health Concerns Infection Onset Date Last Indicated Resolved Time MRSA Comment:Toe 11/08/22, 12/12/22 11/08/2022 12/12/2022 06/10/2023 3:05 AM AIR BRAKE MECHANIC documented as of this encounter Care Teams Environmental Health Specialist Relationship Specialty Start Date End Date Cherelle Corcoran MD PCP - General Family Medicine 08/30/19 Mark Queen MD Consulting Physician Infectious Diseases 01/10/20 Anam Costa LCSW Systematic Theology Professor 08/08/22 02/18/23 Rudolph Welch MD [address] [facility] [address] [place] [address] Consulting Physician Infectious Diseases 12/05/22 Markie Ryan MD [address] [facility] [address] [place] [address] Consulting Physician Nephrology 12/05/22 Nadege Ramírez, ALIREZA [address] [place] [address] [address] [place] [address] Marzipan Maker 01/20/23 02/23/23 documented as of this encounter
--- OUTSIDE RECORDS SUMMARY | 2024-07-04 04:08 | XMS_ITS | Encounter Summary ---
Author Organization [facility] Address [address] [place] [address] Care Team Providers Care [employer] Name Role Phone Cherelle Corcoran MD Primary Care Pro vider Mark Queen MD Unavailable [phone] Anam Costa [facility] Unavailable Unavailabl e Rudolph Welch MD Unavailable [phone] Markie Ryan MD Unavailable [phone] Encounter Details Date Type Department Care Team (Latest Contact Info) Description 12/30/2022 4:29 PM CDT - 12/30/2022 11:59 PM CDT Hospital Encounter [facility] [address] [place], [place] [id number] Emergency, Room R Discharge Disposition: Discharge to home or self care Social History Tobacco Use Types Packs/Day Years Used Date Smoking Tobacco: Never Smokeless Tobacco: Never Alcohol Use Standard Drinks/Week Comments Not Currently 0 (1 standard drink = 0.6 oz pur e alcohol) Social Connection and Isolat ion Panel [NHANES] Answer Date Recorded In a typical week, how many times do you talk on the phone with family, friends, or neighbors? More than three times a week 12/23/2022 How often do you get togethe r with friends or relatives? Twice a week 12/23/2022 How often do you attend chur or mandaeism services? Patient declined 12/23/2022 Do you belong to any clubs o r organizations such as roman catholic groups, unions, fraternal or athletic groups, or school groups? Patient declined 12/23/2022 How often do you attend meet ings of the clubs or organizations you belong to? Patient declined 12/23/2022 Are you , , di vorced, , never , or living with a partner? 12/23/2022 AUDIT-C Answer Date Recorded Q1: How often [...] like food, housing, medical care, and heating? Patient declined 12/23/2022 PHQ-2 Answer Date Recorded PHQ-2 Total Score [...] medical appointments or from getting medications? No 09/2022 In the past 12 months, has l ack of transportation kept you from meetings, work, or from getting things needed for daily living? No 12/23/2022 Housing Stability Vital Sign Answer Fuentes e Recorded In the last 12 months, was t here a time when you were not able to pay the mortgage or rent on time? No 12/23/2022 In the last 12 months, how many places have you lived? 1 12/23/2022 In the last 12 months, was t here a time when you did not have a steady place to sleep or slept in a senior care (including now)? No 12/23/2022 Comments No Sex and Gender Information Value Date Recorded Sex Assigned at Not on file Legal Sex Female 9:03 AM DRY KILN FEEDER Gender Identity Female 02/08/2020 6:39 PM CDT Sexual Orientation Not on file documented as of this encounter Medications at Time of Discharge lidocaine (ASPERCREME) 4 % adhesive patch,medicated Place 1 patch on the skin daily as needed to lower back hydrocortisone (ANUSOL-HC) 25 mg suppository Insert 1 suppository (25 mg total) into the rectum 2 (two) times a day for 15 doses 12 suppository 3 01/08/20 23 acetaminophen (TYLENOL) 325 mg tablet Take 2 tablets (650 mg total) by mouth every 6 (six) hours as needed for pain 03/24/20 23 albuterol HFA (ProAir HFA) 90 mcg/actuation inhalerIndicatio ns:Wheezing Inhale 2 puffs every 4 (four) hours as needed for wheezing or shortness of breath 8.5 g 3 09/03/19 24 amino acids-protein hydr-fiber (Pro-Stat Renal Care) 15-100 gram-kcal/30 mL liquid Take 30 mL by mouth 2 (two) times a day 04/07/20 23 amLODIPine (NORVASC) 10 mg tablet Take 1 tablet (10 mg total) by mouth nightly 30 tablet 1 3 04/07/20 23 atorvastatin (LIPITOR) 20 mg tablet Take 1 tablet (20 mg total) by mouth nightly 04/24/20 23 benztropine (COGENTIN) 1 mg tablet Take 1.5 tablets (1.5 mg total) by mouth nightly 45 tablet 3 11/03/19 24 conner.stocking ,thigh,reg,med miscIndications: Peripheral edema Wear as much as possible 2 each 1 1 10/07/19 24 epoetin isaiah-epbx (RETACRIT) (10,000 unit/mL) solutionIndicati ons:Anemia NOT associated with chemotherapy, radiation, or ESRD,anemia of ckd Inject 1 mL (10,000 Units total) under the skin once a week 3 04/07/20 ferrous sulfate 325 mg (65 mg of elemental iron) tabletIndication s:Iron Deficiency Anemia Take 1 tablet (325 mg total) by mouth 2 (two) times a day 60 tablet 1 3 04/20/20 flash glucose scanning reader (FreeStyle Madhav 2 Realitos) miscIndications: Type 2 diabetes mellitus with diabetic neuropathy, with long-term current use of insulin ([facility]) Use to continually monitor glucose 1 each 2 03/24/20 flash glucose sensor (FreeStyle Madhav 2 Sensor) kitIndications:T ype 2 diabetes mellitus with diabetic neuropathy, with long-term current use of insulin ([facility]) Use to continually monitor glucose, change every 14 days 6 kit 3 3 03/24/20 insulin glargine 100 unit/mL (3 mL) pen for injection Inject 15 Units under the skin nightly To start once blood sugars are consistently above 200 4.5 mL 1 3 03/24/20 insulin lispro (HumaLOG, ADMELOG) 100 unit/mL pen [...] 12 units BG >400 = call MD 03/24/20 magnesium citrate solution Take 296 mL by mouth daily as needed (for constipation if no results after enema) 04/07/20 multivitamin with minerals tablet Take 1 tablet by mouth daily 04/07/[address] (PROTONIX) 40 mg EC tabletIndication s:GI Bleed Take 1 tablet (40 mg total) by mouth 2 (two) times a day 60 tablet 3 04/07/20 23 polyethylene glycol (MIRALAX) 17 gram packetIndication s:constipation Take 1 packet (17 g total) by mouth daily as needed for constipation 04/07/20 pregabalin (LYRICA) 75 mg capsule Take 1 capsule (75 mg total) by mouth nightly 30 capsule 3 04/07/20 risperiDONE (RisperDAL) 2 mg tablet Take 1 tablet (2 mg total) by mouth 2 04/07/20 senna-docusate (PERICOLACE) 8.6-50 mgIndications:co nstipation Take 1 tablet by mouth 2 (two) times a day as needed for constipation 60 tablet 3 04/07/20 documented as of this encounter Discharge Disposition Disposition Code Departure Means Destination Discharge to home or self care documented in this encounter Plan of Treatment Upcoming Encounters Date Type Department Care Team (Latest Contact Info) Description 07/13/2024 9:00 AM DRY KILN FEEDER Hospital Encounter [facility] GI [facility] [address] [place] [address] Jaya Grier MD [address] [place] [address] [address] [place] [address] 07/13/2024 9:00 AM DRY KILN FEEDER - 07/13/2024 9:30 AM DRY KILN FEEDER Surgery [facility] [address] [place] [address] Jaya Grier MD [address] [place] [address] [address] [place] [address] ESOPHAGOGASTRODUODENOSCOPY Scheduled Procedures Name Priority Associated Diagnoses Date/Ti ia ESOPHAGOGASTRODUODENOSCOPY Anemia, unspecified type Gastritis without bleeding, unspecified chronicity, unspecified gastritis type 07/13/2024 9:00 AM DRY KILN FEEDER COLONOSCOPY Iron deficiency anemia due to chronic blood loss documented as of this encounter Visit Diagnoses Not on filedocumented in this encounter Additional Health Concerns Infection Onset Date Last Indicated Resolved Time MRSA Comment:Toe 11/08/22, 12/12/22 11/08/2022 12/12/2022 06/10/2023 3:05 AM DRY KILN FEEDER documented as of this encounter Care Teams [employer] Relationship Specialty Start Date End Date Cherelle Corcoran MD PCP - General Family Medicine 08/30/19 Mark Queen MD Consulting Physician Infectious Diseases 01/10/20 Anam Costa PRIMARY SPECIAL EDUCATOR Franchise Broker 08/08/22 02/18/23 Rudolph Welch MD [address] [facility] [address] [place] [address] Consulting Physician Infectious Diseases 12/05/22 Markie Ryan MD [address] [facility] [address] [place] [address] Consulting Physician Nephrology 12/05/22 documented as of this encounter
--- OUTSIDE RECORDS SUMMARY | 2024-07-04 04:08 | XMS_ITS | Encounter Summary ---
Author Organization [facility] Healthcare Address [address] [place] [address] Care Team Providers Care Assistant Statistician Name Role Phone Cherelle Corcoran MD Primary Care Pro vider Mark Quene MD Unavailable + [phone] Anam Costa [facility] Unavailable Unavailabl e Rudolph Welch MD Unavailable [phone] Markie Ryan MD Unavailable [phone] Nadege Ramírez RN Unavailable [phone] Reason for Referral * Diagnostic Imaging (Routine) - Closed Specialty Diagnoses / Procedures Referred By Contac t Referred To Contact Diagnoses Mass of soft tissue of left upper extremity Procedures US Upper Extremity Left Limited Cherelle Corcoran MD [facility] [address] Phone: tel: fax: [address] [phone] Referral ID Status Reason Start Date Expiration Date Visits Re quested Visits Authorized [id number] Closed 01/23/2023 02/22/2024 1 1 Reason for Visit * Diagnostic Imaging (Routine) - Closed Specialty Diagnoses / Procedures Referred By Contflex t Referred To Contact Diagnoses Mass of soft tissue of left upper extremity Procedures US Upper Extremity Left Limited Cherelle Corcoran MD [facility] [address] [address] Phone: tel: fax: [address] [phone] Referral ID Status Reason Start Date Expiration Date Visits Re quested Visits Authorized [id number] Closed 01/23/2023 02/22/2024 1 1 Encounter Details Date Type Department Care Team (Latest Contact Info) Description 02/16/2023 2:30 PM CDT - 02/16/2023 11:59 PM CDT Hospital Encounter [facility] Ultrasound [address] [place] [address] Mass of soft tissue of left upper extremity Discharge Disposition: Discharge to home or self [...] week 01/20/2023 How often do you attend [facility] or tenriism services? 1 to 4 times per year [...] you are drinking? Patient does not drink 3 Q3: How often do you have si [...] a group home (including now)? No 01/20/2023 Comments No Sex and Gender Information Value Date Recorded Sex Assigned at Not on file Legal Sex Female 9:03 AM CLINICAL STAFF PHARMACIST Gender Identity Female 02/08/2020 6:39 PM CDT Sexual Orientation Not on file documented as of this encounter Medications at Time of Discharge lidocaine (ASPERCREME) 4 % adhesive patch,medicated Place 1 patch on the skin daily as needed to lower back acetaminophen (TYLENOL) 325 mg tablet Take 2 tablets (650 mg total) by mouth every 6 (six) hours as needed for pain 3 albuterol HFA (ProAir HFA) 90 mcg/actuation inhalerIndicatio ns:Wheezing Inhale 2 puffs every 4 (four) hours as needed for wheezing or shortness of breath 8.5 g 11/13/2022 4 amino acids-protein hydr-fiber (Pro-Stat Renal Care) 15-100 gram-kcal/30 mL liquid Take 30 mL by mouth 2 (two) times a day 3 amLODIPine (NORVASC) 10 mg tablet Take 1 tablet (10 mg total) by mouth nightly 30 tablet 1 12/05/2022 3 atorvastatin (LIPITOR) 20 mg tablet Take 1 tablet (20 mg total) by mouth nightly 3 benztropine (COGENTIN) 1 mg tablet Take 1.5 tablets (1.5 mg total) by mouth nightly 45 tablet 11/13/2022 4 conner.stocking ,thigh,reg,med miscIndications: Peripheral edema Wear as much as possible 2 each 1 05/28/2021 4 epoetin isaiah-epbx (RETACRIT) (10,000 unit/mL) solutionIndicati ons:Anemia NOT associated with chemotherapy, radiation, or ESRD,anemia of ckd Inject 1 mL (10,000 Units total) under the skin once a week 12/05/2022 3 ferrous sulfate 325 mg (65 mg of elemental iron) tabletIndication s:Iron Deficiency Anemia Take 1 tablet (325 mg total) by mouth 2 (two) times a day 60 tablet 1 12/05/2022 3 flash glucose scanning reader (FreeStyle Madhav 2 [place]ona) miscIndications: Type 2 diabetes mellitus with diabetic neuropathy, with long-term current use of insulin ([facility]) Use to continually monitor glucose 1 each 10/01/2021 3 flash glucose sensor (FreeStyle Madhav 2 Sensor) kitIndications:T ype 2 diabetes mellitus with diabetic neuropathy, with long-term current use of insulin ([facility]) Use to continually monitor glucose, change every 14 days 6 kit 3 2022 3 insulin glargine 100 unit/mL (3 mL) pen for injection Inject 15 Units under the skin nightly To start once blood sugars are consistently above 200 4.5 mL 1 12/10/2022 3 insulin lispro (HumaLOG, ADMELOG) 100 unit/mL pen [...] = 12 units BG >400 = call 3 magnesium citrate solution Take 296 mL by mouth daily as needed (for constipation if no results after enema) 3 multivitamin with minerals tablet Take 1 tablet by mouth daily [address] (PROTONIX) 40 mg EC tabletIndication s:GI Bleed Take 1 tablet (40 mg total) by mouth 2 (two) times a day 60 tablet 12/30/2022 3 polyethylene glycol (MIRALAX) 17 gram packetIndication s:constipation Take 1 packet (17 g total) by mouth daily as needed for constipation 3 pregabalin (LYRICA) 75 mg capsule Take 1 capsule (75 mg total) by mouth nightly 30 capsule 12/05/2022 3 risperiDONE (RisperDAL) 2 mg tablet Take 1 tablet (2 mg total) by mouth 12/21/2021 3 senna-docusate (PERICOLACE) 8.6-50 mgIndications:co nstipation Take 1 tablet by mouth 2 (two) times a day as needed for constipation 60 tablet 12/30/2022 3 documented as of this encounter Discharge Disposition Disposition Code Departure Means Destination Discharge to home or self care documented in this encounter Plan of Treatment Upcoming Encounters Date Type Department Care Team (Latest Contact Info) Description 07/13/2024 9:00 AM CLINICAL STAFF PHARMACIST Hospital Encounter [facility] GI Lab [address] [place] [address] Jaya Grier MD [address] [facility] [address] [address] 07/13/2024 9:00 AM CLINICAL STAFF PHARMACIST - 07/13/2024 9:30 AM CLINICAL STAFF PHARMACIST Surgery [facility] GI Lab [address] [place] [address] Jaya Grier MD [address] [facility] [place] [address] ESOPHAGOGASTRODUODENOSCOPY Scheduled Procedures Name Priority Associated Diagnoses Date/Ti me ESOPHAGOGASTRODUODENOSCOPY Anemia, unspecified type Gastritis without bleeding, unspecified chronicity, unspecified gastritis type 07/13/2024 9:00 AM CLINICAL STAFF PHARMACIST COLONOSCOPY Iron deficiency anemia due to chronic blood loss documented as of this encounter Procedures Procedure Name Priority Date/Time Associated Diagnosis Comments US UPPER EXTREMITY LEFT LIMITED Schedule Routine, Read Routine (OP Routine) 02/16/2023 3:27 PM CDT Mass of soft tissue of left upper extremity documented in this encounter Results * US Upper Extremity Left Limited (02/16/2023 3:27 PM CDT) Anatomical Region Laterality Modality Upper Extremities Left Ultrasound 02/16/2023 8:22 PM CDT Narrative 02/16/2023 8:23 PM CDT EXAM DESCRIPTION: ?? US UPPER EXTREMITY LEFT LIMITED REASON FOR STUDY: ?? Soft tissue mass, upper arm, initial exam for 1 month. TECHNIQUE: A Dynamic assessment was performed of the ??left upper arm ??by the salad bar clerk, with selected grayscale and color Doppler images acquired and recorded in PACS. COMPARISON: ?? None. FINDINGS: At the area of interest corresponding the abnormality there is the nonvascular slightly irregular hypoechoic structure 1.8 x 1.1 x 0.4 cm, does not have intrinsic flow. ??This may be a complex fluid collection but would need clinical correlation. ??The absence of vascular flow makes the mass less likely. ??This does not appear typical for a lymph node. IMPRESSION: Avascular hypoechoic structure at the area of interest 1.8 x 1.1 x 0.4 cm, this is nonspecific but may be a complex fluid collection. ??Clinical follow-up is needed, if this persists or enlarges, or if further assessment were needed, could consider an MRI with contrast. THIS IS AN ELECTRONICALLY VERIFIED FINAL REPORT 02/16/2023 8:23 PM - Electronically signed by ??Robert Fay M.D. CH: D: ??02/16/2023 8:23 PM T: ??02/16/2023 8:23 PM Report ID: [id number] Reading Location: ??[id number] Procedure Note Robert Fay Jr., MD - 02/16/2023 EXAM DESCRIPTION: US UPPER EXTREMITY LEFT LIMITED REASON FOR STUDY: Soft tissue mass, upper arm, initial exam for 1 month. TECHNIQUE: A Dynamic assessment was performed of the left upper arm bythe salad bar clerk, with selected grayscale and color Doppler images acquired and recorded in PACS. COMPARISON: None. FINDINGS: At the area of interest corresponding the abnormality there isthe nonvascular slightly irregular hypoechoic structure 1.8 x 1.1 x 0.4 cm,does not have intrinsic flow. This may be a complex fluid collection but would need clinical correlation. The absence of vascular flow makes the massless likely. This does not appear typical for a lymph node. IMPRESSION: Avascular hypoechoic structure at the area of interest 1.8 x1.1 x 0.4 cm, this is nonspecific but may be a complex fluid collection.Clinical follow-up is needed, if this persists or enlarges, or if furtherassessment were needed, could consider an MRI with contrast. THIS IS AN ELECTRONICALLY VERIFIED FINAL REPORT 02/16/2023 8:23 PM - Electronically signed by Robert Fay M.D. CH: Report ID: [id number] Reading Location: [id number] us Cherelle Corcoran MD [facility] [place]ED[place] Final Result documented in this encounter Visit Diagnoses Diagnosis Mass of soft tissue of left upper extremity Anemia, unspecified type Gastritis without bleeding, unspecified chronicity, unspecified gastritis type documented in this encounter Additional Health Concerns Infection Onset Date Last Indicated Resolved Time MRSA Comment:Toe 11/08/22, 12/12/22 11/08/2022 12/12/2022 06/10/2023 3:05 AM CLINICAL STAFF PHARMACIST documented as of this encounter Care Teams Assistant Statistician Relationship Specialty Start Date End Date Cherelle Corcoran MD PCP - General Family Medicine 08/30/19 Mark Queen MD Consulting Physician Infectious Diseases 01/10/20 Anam Costa LCSW Commercial Sales Consultant 08/08/22 02/18/23 Rudolph Welch MD [address] [facility] [address] [place] [address] Consulting Physician Infectious Diseases 12/05/22 Markie Ryan MD [address] [facility] [address] [place] [id number] Consulting Physician Nephrology 12/05/22 Nadege Ramírez, RN [address] [place] [address] [address] [place] [address] Field Interviewer 01/20/23 02/23/23 documented as of this encounter
--- OUTSIDE RECORDS SUMMARY | 2024-07-04 04:08 | XMS_ITS | Encounter Summary ---
Author Organization [facility] Address [address] [place] [address] Care Team Providers Care Street Light Repairer Name Role Phone Cherelle Corcoran MD Primary Care Pro vider Mark Queen MD Unavailable + [phone] Anam Costa [facility] Unavailable Unavailabl e Rudolph Welch MD Unavailable Markie Ryan MD Unavailable [phone] Nadege Ramírez RN Unavailable [phone] Reason for Visit * Reason Onset Date Comments Medical Question/Miscellaneous 01/21/2023 Encounter Details Date Type Department Care Team ([facility] st Contact Info) Description 01/21/2023 Telephone [facility] Primary Care at [address] [place] [address] Cherelle Corcoran MD [address] [place] [id number] Medical Question/Miscellaneous Social History Tobacco Use [...] you attend chur ch or anglican services? 1 to 4 times per year [...] in a mcc (including now)? No 01/20/2023 Comments No Sex and Gender Information Value Date Recorded Sex Assigned at Not on file Legal Sex Female 9:03 AM CONCESSION SUPERVISOR Gender Identity Female 02/08/2020 6:39 PM CDT Sexual Orientation Not on file documented as of this encounter Miscellaneous Notes * Telephone Encounter - Sandy Mota MA - 01/22/2023 8:27 AM CDT Spoke to [facility] and gave verbal. They will see pt today. Thanks! * Telephone Encounter - Cherelle Corcoran MD - 01/22/2023 6:13 AM CDT If [facility] can come out today that would be best, thanks * Telephone Encounter - Dana Mike MA - 01/21/2023 3:17 PM CDT Call Back Caller???s Concern: Rita, from [facility] home care, calling stating that they have pt on the schedule tomorrow and would like verbal on whether or not Dr. Corcoran will follow orders by today. Caller???s Call back #: [phone] Does message need to be routed? Yes-Action Needed * Telephone Encounter - Dana Mike MA - 01/21/2023 11:29 AM CDT Medical Question/Miscellaneous Caller???s Concern: Barbara calling to see if Dr. Corcoran will follow home health orders. Please call her with verbal Caller???s Call back #: [phone] Does message need to be routed? Yes-Action Needed documented in this encounter Plan of Treatment Upcoming Encounters Date Type Department Care Team (Latest Contact Info) Description 07/13/2024 9:00 AM CONCESSION SUPERVISOR Hospital Encounter [facility] [address] [place] [id number] Jaya Grier MD [address] [place] [address] [address] GA[address] [place] [id number] 07/13/2024 9:00 AM CONCESSION SUPERVISOR - 07/13/2024 9:30 AM CONCESSION SUPERVISOR Surgery [facility] [address] [place] [address] Jaya Grier MD [address] [place] [address] [address] [place] [address] ESOPHAGOGASTRODUODENOSCOPY Scheduled Procedures Name Priority Associated Diagnoses Date/Ti me ESOPHAGOGASTRODUODENOSCOPY Anemia, unspecified type Gastritis without bleeding, unspecified chronicity, unspecified gastritis type 07/13/2024 9:00 AM CONCESSION SUPERVISOR COLONOSCOPY Iron deficiency anemia due to chronic blood loss documented as of this encounter Visit Diagnoses Not on filedocumented in this encounter Additional Health Concerns Infection Onset Date Last Indicated Resolved Time MRSA Comment:Toe 11/08/22, 12/12/22 11/08/2022 12/12/2022 06/10/2023 3:05 AM CONCESSION SUPERVISOR documented as of this encounter Care Teams Street Light Repairer Relationship Specialty Start Date End Date Cherelle Corcoran MD PCP - General Family Medicine 08/30/19 Mark Queen MD Consulting Physician Infectious Diseases 01/10/20 Anam Costa LCSW Collection Supervisor 08/08/22 02/18/23 Rudolph Welch MD [address] [place] [address] Consulting Physician Infectious Diseases 12/05/22 Markie Ryan MD [address] [place] [address] Consulting Physician Nephrology 12/05/22 Nadege Ramírez, RN [address] [place] [address] [address] [place] [address] Ambulatory Technologist 01/20/23 02/23/23 documented as of this encounter
--- OUTSIDE RECORDS SUMMARY | 2024-07-04 04:08 | XMS_ITS | Encounter Summary ---
Author Organization [facility] Address [address] [place] [address] Care Team Providers Care Printer'S Devil Name Role Phone Cherelle Corcoran MD Primary Care Pro vider Mark Queen MD Unavailable + [phone] Anam Costa [facility] Unavailable Unavailabl e Rudolph Welch MD Unavailable [phone] Markie Ryan MD Unavailable [phone] Nadege Ramírez RN Unavailable [phone] Encounter Details Date Type Department Care Team (Late st Contact Info) Description 01/20/2023 Telephone [facility] Nephrology at [address] [place] [address] Markie Ryan MD [address] [place] [address] [address] [place] [address] Social History Tobacco Use Types [...] often do you attend chur ch or buddhism services? 1 to 4 times per year [...] on file Legal Sex Female 9:03 AM TIME STUDY TECHNOLOGIST Gender Identity Female 02/08/2020 6:39 PM CDT Sexual Orientation Not on file documented as of this encounter Miscellaneous Notes * Telephone Encounter - Yessy Christianson MA - 01/21/2023 9:20 AM CDT Lab orders entered for [facility] lab, patients daughter informed. * Telephone Encounter - Yessy Christianson MA - 01/20/2023 3:19 PM CDT LMOM requesting CB. * Telephone Encounter - Markie Ryan MD - 01/20/2023 3:14 PM CDT Chart reviewed, please have her get a bmp, cbc, iron panel and intact pth in the near future * Telephone Encounter - Yessy Christianson MA - 01/20/2023 10:59 AM CDT Patients daughter called wanting to know if you would want to see the patient sooner than Feb? Recently discharged from [facility], she was DC on a lot of her medications ( Lyrica, carvedilol, changed valsartan to amlodipine, insulin dosage) Wanting to know if she's needing any follow up labs? Please advise documented in this encounter Plan of Treatment Upcoming Encounters Date Type Department Care Team (Latest Contact Info) Description 07/13/2024 9:00 AM TIME STUDY TECHNOLOGIST Hospital Encounter [facility] [address] [place] [address] Jaya Grier MD [address] [place] [address] 07/13/2024 9:00 AM TIME STUDY TECHNOLOGIST - 07/13/2024 9:30 AM TIME STUDY TECHNOLOGIST Surgery [facility] [address] [place] [address] Jaya Grier MD [address] [place] [address] ESOPHAGOGASTRODUODENOSCOPY Scheduled Procedures Name Priority Associated Diagnoses Date/Ti me ESOPHAGOGASTRODUODENOSCOPY Anemia, unspecified type Gastritis without bleeding, unspecified chronicity, unspecified gastritis type 07/13/2024 9:00 AM TIME STUDY TECHNOLOGIST COLONOSCOPY Iron deficiency anemia due to chronic blood loss documented as of this encounter Results * (ABNORMAL) Iron profile w/ IBC (01/23/2023 9:47 AM CDT) Iron 61 35 - 145 mcg/dL NILSA RODRIGES Comment:Testing performed by : [address] [address] TIBC 183(L) 250 - 400 mcg/dL NILSA RODRIGES Comment:Testing performed by : [address] [address] Transferrin saturation 33 20 - 50 % NILSA RODRIGES Comment:Testing performed by : [address] [address] Blood 01/23/2023 9:47 AM CDT 01/23/2023 11:20 AM CDT us Markie Ryan MD LAB BLOOD ORDERABLES Final Re sult NILSA RODRIGES [address] [facility] [place] [address] * (ABNORMAL) PTH (01/23/2023 9:47 AM CDT) Pathologist [facility] PTH 71(H) 15 - 65 pg/mL NILSA RODRIGES Comment:Testing performed by : [address] [address] Blood 01/23/2023 9:47 AM CDT 01/23/2023 11:20 AM CDT us Markie Ryan MD LAB BLOOD ORDERABLES Final Re sult NILSA [address] [facility] [place] [address] * (ABNORMAL) CBC with auto differential (01/23/2023 9:47 AM CDT) Pathologist [facility] WBC 8.2 3.8 - 9.9 K/cumm NILSA Comment:Testing performed by : [address] [address] Hgb 9.7(L) 11.9 - 15.5 g/dL NILSA Comment:Testing performed by : [address] [address] Hct 30.9(L) 35.6 - 45.5 % NILSA RODRIGES Comment:Testing performed by : [address] [address] Plt 293 150 - 400 K/cumm NILSA Comment:Testing performed by : [address] [address] MPV 10.5 9.1 - 12.3 fL NILSA Comment:Testing performed by : [address] [address] RBC 3.32(L) 3.90 - 5.20 M/cumm NILSA RODRIGES Comment:Testing performed by : [address] [address] MCV 93.1 81.3 - 96.4 fL NILSA Comment:Testing performed by : [address] [place]., [address] MCH 29.2 27.1 - 33.3 pg NILSA RODRIGES Comment:Testing performed by : [address] [address] MCHC 31.4(L) 32.3 - 35.7 g/dL NILSA RODRIGES Comment:Testing performed by : [address] [address] RDW CV 15.3(H) 11.1 - 14.9 % NILSA RODRIGES Comment:Testing performed by : [address] [address] RDW SD 52.1(H) 35.7 - 48.1 fL NILSA RODRIGES Comment:Testing performed by : [address] [address] NRBC abs 0.00 0.00 - 0.01 K/cumm NILSA RODRIGES Comment:Testing performed by : [address] [address] Blood 01/23/2023 9:47 AM CDT 01/23/2023 11:20 AM CDT us Markie Ryan MD LAB BLOOD ORDERABLES Final Re sult NILSA [address] [facility] [place] [address] * (ABNORMAL) Basic metabolic panel (01/23/2023 9:47 AM CDT) Sodium 144 135 - 145 mmol/L NILSA RODRIGES Comment:Testing performed by : [address] [address] Potassium, pl 4.7 3.3 - 4.9 mmol/L NILSA RODRIGES Comment:Testing performed by : [address] [address] Chloride 107 97 - 110 mmol/L NILSA RODRIGES Comment:Testing performed by : [address] [address] CO2 23 22 - 32 mmol/L NILSA RODRIGES Comment:Testing performed by : [address] [address] Anion gap 14 2 - 15 mmol/L NILSA Comment:Testing performed by : [address] [address] BUN 33(H) 6 - 25 mg/dL NILSA Comment:Testing performed by : [address] [address] Creatinine 2.10(H) 0.60 - 1.10 mg/dL NLISA Comment:Testing performed by : [address] [address] Glucose 196 70 - 199 mg/dL NILSA [...] was last revised 2022. Testing performed by: [address] [address] Calcium 10.0 8.5 - 10.3 mg/dL NILSA Comment:Testing performed by : [address] [address] Blood 01/23/2023 9:47 AM CDT 01/23/2023 11:20 AM CDT Narrative NILSA - 01/23/2023 12:22 PM CDT Has the patient fasted?->No us Markie Ryan MD LAB BLOOD ORDERABLES Final Re sult NILSA [address] [facility] Department of Laboratories [place], [place] [id number] documented in this encounter Visit Diagnoses Diagnosis [...] stage I through stage IV, or unspecified Stage 3b chronic kidney disease (HCC) Anemia [...] 11/08/22, 12/12/22 11/08/2022 12/12/2022 06/10/2023 3:05 AM TIME STUDY TECHNOLOGIST documented as of this encounter Care Teams Printer'S Devil Relationship Specialty Start Date End Date Cherelle Corcoran MD PCP - General Family Medicine 08/30/19 Mark Queen MD Consulting Physician Infectious Diseases 01/10/20 Anam Costa LCSW Director Of Strategic Sourcing 08/08/22 02/18/23 Rudolph Welch MD [address] [place] [address] Consulting Physician Infectious Diseases 12/05/22 Markie Ryan MD [address] [place] [address] Consulting Physician Nephrology 12/05/22 Nadege Ramírez RN [address] [place] [address] [address] [place] [address] Lacquer Dipping Machine Operator 01/20/23 02/23/23 documented as of this encounter
--- OUTSIDE RECORDS SUMMARY | 2024-07-04 04:08 | XMS_ITS | Encounter Summary ---
Author Organization [facility] Address [address] [place] [address] Care Team Providers Care Screen Printing Machine Operator Name Role Phone Cherelle Corcoran MD Primary Care Pro vider Mark Queen MD Unavailable + [phone] Anam Costa [facility] Unavailable Unavailabl e Rudolph Welch MD Unavailable [phone] Markie Ryan MD Unavailable [phone] Nadege Ramírez RN Unavailable [phone] Encounter Details Date Type Department Care Team (Late st Contact Info) Description 01/26/2023 Telephone [facility] Nephrology at [address] [place] [address] Markie Ryan MD [address] [place] [address] [address] [place] [address] Social History Tobacco Use Types [...] often do you attend chur ch or sikh services? 1 to 4 times per year [...] slept in a half-way (including now)? No 01/20/2023 Comments No Sex and Gender Information Value Date Recorded Sex Assigned at Not on file Legal Sex Female 9:03 AM NUCLEAR OPERATOR Gender Identity Female 02/08/2020 6:39 PM CDT Sexual Orientation Not on file documented as of this encounter Miscellaneous Notes * Telephone Encounter - Mihaela Mejia MA - 01/26/2023 11:20 AM CDT Left detailed message on pt's recorder and asked her to call back if she has any questions. * Telephone Encounter - Mihaela Mejia MA - 01/26/2023 11:20 AM CDT ----- Message from Markie Ryan MD sent at 01/23/2023 2:26 PM CDT ----- Creatinine back to baseline, iron stores good and hemoglobin stable. Would continue current regimenand fine to keep current appointment documented in this encounter Plan of Treatment Upcoming Encounters Date Type Department Care Team (Latest Contact Info) Description 07/13/2024 9:00 AM NUCLEAR OPERATOR Hospital Encounter [facility] [address] [place] [address] Jaya Grier MD [facility] [address] [place] [address] 07/13/2024 9:00 AM NUCLEAR OPERATOR - 07/13/2024 9:30 AM NUCLEAR OPERATOR Surgery [facility] [address] [place] [address] Jaya Grier MD [facility] [address] [place] [address] ESOPHAGOGASTRODUODENOSCOPY Scheduled Procedures Name Priority Associated Diagnoses Date/Ti me ESOPHAGOGASTRODUODENOSCOPY Anemia, unspecified type Gastritis without bleeding, unspecified chronicity, unspecified gastritis type 07/13/2024 9:00 AM NUCLEAR OPERATOR COLONOSCOPY Iron deficiency anemia due to chronic blood loss documented as of this encounter Visit Diagnoses Not on filedocumented in this encounter Additional Health Concerns Infection Onset Date Last Indicated Resolved Time MRSA Comment:Toe 11/08/22, 12/12/22 11/08/2022 12/12/2022 06/10/2023 3:05 AM NUCLEAR OPERATOR documented as of this encounter Care Teams Screen Printing Machine Operator Relationship Specialty Start Date End Date Cherelle Corcoran MD PCP - General Family Medicine 08/30/19 Mark Queen MD Consulting Physician Infectious Diseases 01/10/20 Anam Costa LCSW Co Director 08/08/22 02/18/23 Rudolph Welch MD [address] [facility] [address] [place] [address] Consulting Physician Infectious Diseases 12/05/22 Markie Ryan MD [address] [facility] [address] [place] [address] Consulting Physician Nephrology 12/05/22 Nadege Ramírez, RN [address] [place] [address] [address] [place] [address] Assistant Editor 01/20/23 02/23/23 documented as of this encounter
--- OUTSIDE RECORDS SUMMARY | 2024-07-04 04:08 | XMS_ITS | Encounter Summary ---
Author Organization [facility] Address [address] [place] [address] Care Team Providers Care Independent Jeweler Name Role Phone Duane Callahan MD Primary Care Pro vider Mark Queen MD Unavailable [phone] Anam Costa [facility] Unavailable Unavailabl e Rudolph Welch MD Unavailable [phone] Markie Ryan MD Unavailable [phone] Nadege Ramírez RN Unavailable [phone] Reason for Referral * Diagnostic Imaging (Routine) - Closed Specialty Diagnoses / Procedures Referred By Contac t Referred To Contact Diagnoses Mass of soft tissue of left upper extremity Procedures US Upper Extremity Left Limited Duane Callahan MD [facility] [address] Phone: tel: fax: [address] [address] Referral ID Status Reason Start Date Expiration Date Visits Re quested Visits Authorized [id number] Closed 01/23/2023 02/22/2024 1 1 Reason for Visit * Reason Comments Hospital Follow Up Was discharged from a senior living. Has been in and out of hospital. Wanting to discuss blood work. Medication discussion, decrease in appetite Encounter Details Date Type Department Care Team (Latest Contact Info) Description 01/23/2023 8:45 AM CDT Office Visit [facility] Primary [facility] at [place] [address] [facility] [address] [place] [address] Duane Callahan MD [facility] [address] [place] [address] Gastrointestinal hemorrhage, unspecified gastrointestinal hemorrhage type (Primary Dx); Osteomyelitis of great toe of right foot (CMS/HCC) (HCC); Type 2 diabetes mellitus with diabetic neuropathy, with long-term current use of insulin (CMS/HCC) (HCC); Other diabetic neurological complication associated with type 2 diabetes mellitus (HCC); Hypertension associated with diabetes (HCC); Hyperlipidemia associated with type 2 diabetes mellitus (HCC); 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 2 diabetes mellitus (CMS/HCC) (HCC); Late onset Alzheimer's dementia without behavioral disturbance (HCC); Schizoaffective disorder, bipolar type (CMS/HCC) (HCC); Parkinsonism, unspecified Parkinsonism type (HCC); Mass of soft tissue of left upper extremity Social History Tobacco Use Types Packs/Day Years [...] any clubs o r organizations such as episcopalian groups, unions, fraternal or athletic groups, or [...] a nursing home (including now)? No 01/20/2023 Comments No Sex and Gender Information Value Date Recorded Sex Assigned at Not on file Legal Sex Female 9:03 AM CURRENCY EXCHANGE SPECIALIST Gender Identity Female 02/08/2020 6:39 PM CDT Sexual Orientation Not on file documented as of this encounter Last Filed Vital Signs Vital Sign Reading Time Taken Comments Blood Pressure 110/54 01/23/2023 9:05 AM CDT Pulse 64 01/23/2023 8:34 AM CDT Temperature 36.1 ??C (96.9 ??F) 01/23/2023 8:34 AM CD T Respiratory Rate 16 01/23/2023 8:34 AM CDT Oxygen Saturation 99% 01/23/2023 8:34 AM CDT Inhaled Oxygen Concentration - - Weight 61 kg (134 lb 8 oz) 01/23/2023 8:34 AM CD T Height 157.5 cm (5' 2.01 ) 01/23/2023 8:34 AM CD T Body Mass Index 24.59 01/23/2023 8:34 AM CDT documented in this encounter Patient Instructions * Attachments The following attachments cannot be sent through Care Everywhere. * Hypertension (Lozenge Maker) (Swiss) documented in this encounter Progress Notes * Duane Callahan MD - 01/23/2023 8:45 AM CDT Images from the original note [...] living is documented in the chart. I, Duane Callahan MD have personally reviewed pertinent Hospital/ER data including [employer] and Care Everywhere if available. This patient's discharge medication list has been reviewed and reconciled with her medication list in the office chart and has also been reviewed with patient a nd/or caregiver. I have noted any changes. Admission Date: 12/20/22 Discharge Date: 01/17/23 Date of Initial Post-discharge Interactive Contact: 01/20/23 Complexity of Medical Decision Making: moderate Metabolic Lab Results: Body mass index is 24.59 kg/m??. Glucose: Glucose Date Value Ref Range Status 12/30/2022 148 70 - 199 mg/dL Final Comment: Interpretive [...] Glucose, POC Date Value Ref Range Status 12/30/2022 215 (H) 70 - 199 mg/dL Final Lab Results Component Value Date WBC 8.7 12/30/2022 HGB 8.8 (L) 12/30/2022 HCT 27.9 (L) 12/30/2022 MCV 94.3 12/30/2022 Lab Results Component Value Date GLUCOSE 215 (H) 12/30/2022 CALCIUM 9.0 12/30/2022 SODIUM 145 12/30/2022 POTASSIUM 4.6 12/30/2022 CO2 19 (L) 12/30/2022 CHLORIDE 114 (H) 12/30/2022 BUNSER 38 (H) 12/30/2022 CREATININE 2.21 (H) 12/30/2022 Major Procedures and Tests: Major Procedures and Tests Performed During Inpatient Stay: Studies Pending at Discharge (Includes Lab and Radiology) None Interval History: Recently hospitalized 2/2 fatigue/weakness, thought to be 2/2 GI bleed. Did not require transfusion. Discharged to SNF and then discharged home 01/17 with daughter. Daughter states she has been getting around well, hasn't even needed walker all the time. Does have home health coming out next week R great toe osteomyelitis: was on daptomycin & flagyl until 12/23, hasn't seen podiatry since discharge Notes mass on L upper arm Diabetes mellitus: previously on trulicity 1.5mg weekly, but discontinued. Decreased to 15 units lantus & 12 units humalog TIDAC SSI, follows with endocrine. daughter reports blood sugars 98-144 Neuropathy: decreased lyrica to 75mg nightly & then discontinued Hypertension: previously on 6.25mg coreg twice a day & valsartan 40mg, currently on 10mg amlodipine. Earlier this week blood pressure 120's/40's. Hyperlipidemia: on 20mg atorvastatin Ckd: following with nephro Alzheimer's dementia: following with neurology Parkinsonism: following with neurology, on cogentin 1.5mg twice a day Schizophrenia: following with psychiatry, previously on resperidone 2mg nightly, but recently discontinued Problem GI Bleed Osteomyelitis of Great Toe of Right Foot ([facility]) ([facility]) Parkinsonism ([facility]) Late Onset Alzheimer's Dementia Without Behavioral Disturbance ([facility]) Ckd Stage 4 Due to Type 2 Diabetes Mellitus ([facility]) ([facility]) Schizoaffective Disorder, Bipolar Type ([facility]) ([facility]) Hyperlipidemia Associated With Type 2 Diabetes Mellitus ([facility]) Hypertension Associated With Diabetes ([facility]) Type 2 Diabetes Mellitus With Diabetic Neuropathy, With Long-Term Current Use of Insulin ([facility]) ([facility]) Diabetic Neuropathy ([facility]) Hever (Acute Kidney Injury) ([facility]) ([facility]) (Resolved) Cellulitis of Great Toe of Right Foot (Resolved) Current Outpatient Medications Medication Sig Dispense Refill acetaminophen (TYLENOL) 325 mg tablet Take 2 tablets (650 mg total) by mouth every 6 (six) hours asneeded for pain albuterol HFA (ProAir HFA) 90 mcg/actuation inhaler Inhale 2 puffs every 4 (four) hours as needed for wheezing or shortness of breath 8.5 g 0 amLODIPine (NORVASC) 10 mg tablet Take 1 tablet (10 mg total) by mouth nightly 30 tablet 1 atorvastatin (LIPITOR) 20 mg tablet Take 1 tablet (20 mg total) by mouth nightly benztropine (COGENTIN) 1 mg tablet Take 1.5 tablets (1.5 mg total) by mouth nightly (Patient takingdifferently: Take 1.5 tablets (1.5 mg total) by mouth 2 (two) times a day) 45 tablet 0 conner.stocking,thigh,reg,med misc Wear as much as possible 2 each 1 ferrous sulfate 325 mg (65 mg of elemental iron) tablet Take 1 tablet (325 mg total) by mouth 2 (two) times a day 60 tablet 1 flash glucose scanning reader (FreeStyle Madhav 2 Cameron) [facility] [employer] Use to continually monitor glucose 1 each 0 flash glucose sensor (FreeStyle Madhav 2 Sensor) kit Use to continually monitor glucose, change every 14 days 6 kit 3 insulin glargine 100 unit/mL (3 mL) pen for injection Inject 15 Units under the skin nightly To start once blood sugars are consistently above 200 4.5 mL 1 insulin lispro (HumaLOG, ADMELOG) 100 unit/mL pen [...] on the skin daily to lower back multivitamin with minerals tablet Take 1 tablet by mouth daily amino acids-protein hydr-fiber (Pro-Stat Renal Care) 15-100 gram-kcal/30 mL liquid Take 30 mL by mouth 2 (two) times a day (Patient not taking: Reported on 01/23/2023) epoetin isaiah-epbx (RETACRIT) (10,000 unit/mL) solution Inject 1 mL (10,000 Units total) under the skin once a week (Patient not taking: Reported on 01/23/2023) magnesium citrate solution Take 296 mL by mouth daily as needed (for constipation if no results after enema) (Patient not taking: Reported on 01/20/2023) pantoprazole DR (PROTONIX) 40 mg EC tablet Take 1 tablet (40 mg total) by mouth 2 (two) times a day(Patient not taking: Reported on 01/20/2023) 60 tablet 0 polyethylene glycol (MIRALAX) 17 gram packet Take 1 packet (17 g total) by mouth daily as needed for constipation (Patient not taking: Reported on 01/23/2023) pregabalin (LYRICA) 75 mg capsule Take 1 capsule (75 mg total) by mouth nightly 30 capsule 0 risperiDONE (RisperDAL) 2 mg tablet Take 1 tablet (2 mg total) by mouth (Patient not taking: Reported on 01/23/2023) senna-docusate (PERICOLACE) 8.6-50 mg Take 1 tablet by mouth 2 (two) times a day as needed for constipation (Patient not taking: Reported on 01/20/2023) 60 tablet 0 No current facility-administered medications for this visit. Review of Systems: Review of Systems Constitutional: Positive for fatigue. Cardiovascular: Negative for chest pain. Skin: Positive for wound (mostly resolved). Neurological: Negative for dizziness and weakness. Physical Exam: BP 110/54 Pulse 64 Temp 36.1 ??C (96.9 ??F) (Temporal) Resp 16 Ht 157.5 cm (5' 2.01 ) Wt 61 kg (134 lb 8 oz) SpO2 99% BMI 24.59 kg/m?? Physical Exam Gen: NAD, comfortable, appears as stated age Eyes: no conjunctival injection, EOMI ENMT: external ears symmetric CV: RRR without murmur, rub, gallop. Pulm: good respiratory effort, CTAB no rhonchi, rales, or wheezes Skin: 1.5x2cm subcutaneous nodule on lateral distal left upper arm without erythema, small superficial wound of distal R toe without erythema or discharge, warm and dry Ext: No lower extremity edema MSK/Neuro: symmetric limb movement, normal gait, using walker Psych: alert and oriented to person/place Assessment/Plan Diagnoses and all orders for this visit: Gastrointestinal hemorrhage, unspecified gastrointestinal hemorrhage type (Primary) Assessment & Plan: S/p recent hospitalization, reviewed d/c summary Checking cbc today Osteomyelitis of great toe of right foot ([facility]) ([facility]) Assessment & Plan: Completed antibiotics Checking cbc today Advised to follow up with podiatry Type 2 diabetes mellitus with diabetic neuropathy, with long-term current use of insulin ([facility]) ([facility]) Assessment & Plan: Lab Results Component Value Date HGBA1C 7.1 (H) 11/30/2022 Following with endocrine Continue lantus, 12 units humalog TIDAC & 1.5mg trulicity Other diabetic neurological complication associated with type 2 diabetes mellitus ([facility]) Assessment & Plan: Off lyrica Hypertension associated with diabetes ([facility]) Assessment & Plan: Blood pressure borderline low today, asymptomatic Checking labs Advised to decrease amlodipine to 5mg and monitor blood pressure Hyperlipidemia associated with type 2 diabetes mellitus ([facility]) Assessment & Plan: Continue statin 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 2 diabetes mellitus ([facility]) ([facility]) Assessment & Plan: Following with nephrology Late onset Alzheimer's dementia without behavioral disturbance ([facility]) Assessment & Plan: Following with neurology Schizoaffective disorder, bipolar type ([facility]) ([facility]) Assessment & Plan: Following with psychiatry Parkinsonism, unspecified Parkinsonism type ([facility]) Assessment & Plan: Following with neurology On cogentin twice a day Mass of soft tissue of left upper extremity - US Upper Extremity Left Limited; Future Coordination of Home care services and follow-up with specialist appointments confirmed. Instructions have been provided to and reviewed with the patient/campground caretaker prior to discharge. Duane Callahan MD documented in this encounter Miscellaneous Notes * Assessment & Plan Note - Duane Callahan MD - 01/23/2023 9:22 AM CDTAssociated Problem(s): GI bleed (Resolved 11/10/2023) S/p recent hospitalization, reviewed d/c summary Checking cbc today * Assessment & Plan Note - Duane Callahan MD - 01/23/2023 9:22 AM CDTAssociated Problem(s): Osteomyelitis of great toe of right foot (CMS/HCC) (HCC) (Resolved 11/10/2023) Completed antibiotics Checking cbc today Advised to follow up with podiatry * Assessment & Plan Note - Duane Callahan MD - 01/23/2023 9:20 AM CDTAssociated Problem(s): Parkinsonism (HCC) Following with neurology On cogentin twice a day * Assessment & Plan Note - Duane Callahan MD - 01/23/2023 9:19 AM CDTAssociated Problem(s): Schizoaffective disorder, bipolar type (CMS/HCC) (HCC) Following with psychiatry * Assessment & Plan Note - Duane Callahan MD - 01/23/2023 9:18 AM CDTAssociated Problem(s): Late onset Alzheimer's dementia without behavioral disturbance (HCC) Following with neurology * Assessment & Plan Note - Duane Callahan MD - 01/23/2023 9:18 AM CDTAssociated Problem(s): 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 2 diabetes mellitus (CMS/HCC) (HCC) (Deleted) Following with nephrology * Assessment & Plan Note - Duane Callahan MD - 01/23/2023 9:18 AM CDTAssociated Problem(s): Mixed hyperlipidemia Continue statin * Assessment & Plan Note - Duane Callahan MD - 01/23/2023 8:51 AM CDTAssociated Problem(s): Primary hypertension Blood pressure borderline low today, asymptomatic Checking labs Advised to decrease amlodipine to 5mg and monitor blood pressure * Assessment & Plan Note - Duane Callahan MD - 01/23/2023 8:51 AM CDTAssociated Problem(s): Diabetic neuropathy (HCC) (Resolved 05/16/2024) Off lyrica * Assessment & Plan Note - Duane Callahan MD - 01/23/2023 8:51 AM CDTAssociated Problem(s): Type 2 diabetes mellitus with diabetic neuropathy, with long-term current use of insulin (HCC) Lab Results Component Value Date HGBA1C 7.1 (H) 11/30/2022 Following with endocrine Continue lantus, 12 units humalog TIDAC & 1.5mg trulicity * Addendum Note - Duane Callahan MD - 01/23/2023 8:45 AM CDT Addended by: DUANE CALLAHAN on: 01/23/2023 10:21 AM Modules accepted: Orders documented in this encounter Plan of Treatment Upcoming Encounters Date Type Department Care Team (Latest Contact Info) Description 07/13/2024 9:00 AM CURRENCY EXCHANGE SPECIALIST Hospital Encounter [facility] [address] [place] [address] Jaya Grier MD [address] [place] [address] [address] [place] [address] 07/13/2024 9:00 AM CURRENCY EXCHANGE SPECIALIST - 07/13/2024 9:30 AM CURRENCY EXCHANGE SPECIALIST Surgery [facility] [address] [place] [address] Jaya Grier MD [facility] [place] [id number] ESOPHAGOGASTRODUODENOSCOPY Scheduled Procedures Name Priority Associated Diagnoses Date/Ti me ESOPHAGOGASTRODUODENOSCOPY Anemia, unspecified type Gastritis without bleeding, unspecified chronicity, unspecified gastritis type 07/13/2024 9:00 AM CURRENCY EXCHANGE SPECIALIST COLONOSCOPY Iron deficiency anemia due to chronic blood loss documented as of this encounter Results * US Upper Extremity [...] of the ??left upper arm ??by the auto haulaway driver, with selected grayscale and color Doppler images [...] by ??Robert Fay M.D. CH: KECIA D: ??02/16/2023 8:23 PM T: ??02/16/2023 8:23 PM Report ID: [id number] Reading Location: ??[id number] Procedure Note Robert Fay Jr., MD - 02/16/2023 EXAM DESCRIPTION: US UPPER EXTREMITY LEFT LIMITED REASON FOR STUDY: Soft tissue mass, upper arm, initial exam for 1 month. TECHNIQUE: A Dynamic assessment was performed of the left upper arm bythe auto haulaway driver, with selected grayscale and color Doppler images [...] by Robert Fay M.D. CH: Report ID: [id number] Reading Location: [place] [address] us Duane Callahan MD [facility] US PROCEDURES Final Result documented in this encounter Visit Diagnoses Diagnosis Gastrointestinal hemorrhage, unspecified gastrointestinal hemorrhage type- Primary Osteomyelitis of great toe of right foot (CMS/HCC) (HCC) Type 2 diabetes mellitus with diabetic neuropathy, with long-term current use of insulin (HCC) Other diabetic neurological complication associated with type 2 diabetes mellitus (HCC) Hypertension associated with diabetes (HCC) Unspecified essential hypertension Hyperlipidemia associated with type 2 diabetes mellitus (HCC) 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 2 diabetes mellitus (CMS/HCC) (HCC) Late onset Alzheimer's dementia without behavioral disturbance (HCC) Schizoaffective disorder, bipolar type (CMS/HCC) (HCC) Schizoaffective disorder, unspecified condition Parkinsonism, unspecified Parkinsonism type (HCC) Mass of soft tissue of left upper extremity Mass of soft tissue of left upper extremity Anemia, unspecified type Gastritis without bleeding, unspecified chronicity, unspecified gastritis type documented in this encounter Historical Medications * This list may reflect changes made after this encounter. risperiDONE (RisperDAL) 2 mg tablet Take 1 tablet (2 mg total) by mouth 12/21/2021 04/07/2023 added in this encounter Additional Health Concerns Infection Onset Date Last Indicated Resolved Time MRSA Comment:Toe 11/08/22, 12/12/22 11/08/2022 12/12/2022 06/10/2023 3:05 AM CURRENCY EXCHANGE SPECIALIST documented as of this encounter Care Teams Independent Jeweler Relationship Specialty Start Date End Date Duane Callahan MD PCP - General Family Medicine 08/30/19 Mark Queen MD Consulting Physician Infectious Diseases 01/10/20 Anam Costa LCSW Garment Mender 08/08/22 02/18/23 Rudolph Welch MD [address] [place] [address] Consulting Physician Infectious Diseases 12/05/22 Markie Ryan MD [address] [place] [address] Consulting Physician Nephrology 12/05/22 Nadege Ramírez, RN [address] [place] [address] [address] [place] [address] Customer Acquisition Manager 01/20/23 02/23/23 documented as of this encounter
--- OUTSIDE RECORDS SUMMARY | 2024-07-04 04:08 | XMS_ITS | Encounter Summary ---
Author Organization [facility] Address [address] [place] [address] Care Team Providers Care Office Coordinator Name Role Phone Cherelle Corcoran MD Primary Care Pro vider Mark Queen MD Unavailable [phone] Rudolph Welch MD Unavailable Markie Ryan MD Unavailable [phone] Reason for Visit * Reason Comments Hyperlipidemia Hypertension Follow-up Encounter Details Date Type Department Care Team (Late st Contact Info) Description 03/18/2023 1:30 PM CDT Office Visit [facility] Cardiology [address] [place] [address] Santo Vail MD [address] [place] [address] Dyspnea, unspecified type (Primary Dx); Hyperlipidemia associated with type 2 diabetes mellitus [...] health care facility (including now)? 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 Gender Identity Female 02/08/2020 6:39 PM CDT Sexual Orientation Not on file documented as of this encounter Last Filed Vital Signs Vital Sign Reading Time Taken Comments Blood Pressure 118/60 03/18/2023 2:14 PM CDT Pulse 66 03/18/2023 2:14 PM CDT Temperature - - Respiratory Rate - - Oxygen Saturation 98% 03/18/2023 2:14 PM CDT Inhaled Oxygen Concentration - - Weight 61.7 kg (136 lb) 03/18/2023 2:14 PM CDT Height 157.5 cm (5' 2.01 ) 03/18/2023 2:14 PM CD T Body Mass Index 24.87 03/18/2023 2:14 PM CDT documented in this encounter Progress Notes * Santo Vail MD - 03/18/2023 1:30 PM CDT Images from the original note were not included. Cardiology Return Clinic Visit HPI: We are seeing Barbara Chakraborty in clinic today for initial office visit. Patient is a 72 y.o. female with past medical history notable for diabetes and hypertension now presenting to [facility] care. She has been having some lower extremity swelling. Also having some numbness. No chest pain or dyspnea. No orthopnea or PND. States BP well controlled at home. 12/18/20 Feeling well overall. No cardiac symptoms. 08/05/2021 Was in the hospital with infection and STEFANO. Still having some mental status changes. 12/18/2021 She was recently admitted with cough and generalized weakness. Also recent hospitalization at [place] with pneumonia. She was also diagnosed with left lower extremity DVT and started on Eliquis. No chest pain or dyspnea. More energy. 06/04/2022 Not having any significant cardiac issues. 08/13/2022 Recent admission w/ altered mental status, resolved. Otherwise she is feeling well. 03/18/2023 She is had multiple admissions since last seen for altered mental status, UTI, toe osteomyelitis, GI bleeding. Feels ok and no major symptoms. Review of Systems: 14 point ROS was discussed with the patient and is negative except as noted in the history of present illness. Past Medical History: Diagnosis Date Arthritis CHF (congestive heart failure) (CMS/HCC) (HCC) Dementia (HCC) Depression Diabetic neuropathy (HCC) Hyperlipidemia Hypertension Movement disorder Osteomyelitis (HCC) Renal disorder Schizophrenia (HCC) Type 2 diabetes mellitus (HCC) Past Surgical History: Procedure Laterality Date SECTION Right right foot TOE AMPUTATION Right 01/06/2020 4th toe amp/ foot debridement/ Dr. Anat Pelayo Current Outpatient Medications: atorvastatin, 20 mg, oral, Nightly benztropine, 1.5 mg, oral, Nightly (Patient taking differently: 1.5 mg, oral, 2 times daily) ferrous sulfate, 65 mg of elemental iron, oral, BID FreeStyle Madhav 2 Lanse, Use to continually monitor glucose FreeStyle Madhav 2 Sensor, Use to continually monitor glucose, change every 14 days insulin glargine, 15 Units, subcutaneous, Nightly insulin lispro, 0-12 Units, subcutaneous, TID AC lidocaine, 1 patch, transdermal, Daily acetaminophen, 650 mg, oral, Q6H PRN albuterol HFA, 2 puff, inhalation, Q4H PRN Pro-Stat Renal Care, 30 mL, oral, BID (Patient not taking: Reported on 01/23/2023) amLODIPine, 10 mg, oral, Nightly conner.stocking,thigh,reg,med, Wear as much as possible epoetin isaiah-epbx, 10,000 Units, subcutaneous, Weekly (Patient not taking: Reported on 01/23/2023) magnesium citrate, 296 mL, oral, Daily PRN (Patient not taking: Reported on 01/20/2023) multivitamin with minerals, 1 tablet, oral, Daily pantoprazole DR, 40 mg, oral, BID (Patient not taking: Reported on 01/20/2023) polyethylene glycol, 17 g, oral, Daily PRN (Patient not taking: Reported on 01/23/2023) pregabalin, 75 mg, oral, Nightly risperiDONE, Take 1 tablet (2 mg total) by mouth (Patient not taking: Reported on 01/23/2023) senna-docusate, 1 tablet, oral, BID PRN (Patient not taking: Reported on 01/20/2023) No Known Allergies Social History Tobacco Use Smoking status: Never Smoker Smokeless tobacco: Never Used Substance Use Topics Alcohol use: Not Currently Family History Problem Relation Age of Onset Stomach cancer Father Physical Exam: Vitals BP 118/60 (BP Location: Right arm, Patient Position: Sitting) Pulse 66 Ht 157.5 cm (5' 2.01 ) Wt 61.7 kg (136 lb) SpO2 98% BMI 24.87 kg/m?? General: Pleasant female in no acute distress. HEENT: normocephalic, atraumatic, no conjunctival injection, no scleral icterus Neck: No JVD, no thyromegaly Lungs: Clear bilaterally. No rales. No rhonchi. No wheezing. Cardiac: Normal rate, regular rhythm, no murmurs, no rubs, no gallops. PMI nondisplaced. Abdomen: Soft, nontender, nondistended. No masses. No bruits. No hepatosplenomegaly. Extremities: Warm and well perfused. No clubbing. No cyanosis. No edema Skin: No rashes noted. No lesions noted. Psych: Appropriate affect. Appropriate mood. Neuro: A&O x 4. Moving all extremities well. Lab/Radiology/Diagnostic Review: Sodium Date Value Ref Range Status 01/23/2023 144 135 - 145 mmol/L Final Comment: Testing performed by: [address] [address] 12/30/2022 145 135 - 145 mmol/L Final 12/29/2022 142 135 - 145 mmol/L Final Potassium, pl Date Value Ref Range Status 01/23/2023 4.7 3.3 - 4.9 mmol/L Final Comment: Testing performed by: [address] [address] 12/30/2022 4.6 3.3 - 4.9 mmol/L Final 12/29/2022 5.3 (H) 3.3 - 4.9 mmol/L Final Chloride Date Value Ref Range Status 01/23/2023 107 97 - 110 mmol/L Final Comment: Testing performed by: [address] [address] 12/30/2022 114 (H) 97 - 110 mmol/L Final 12/29/2022 110 97 - 110 mmol/L Final CO2 Date Value Ref Range Status 01/23/2023 23 22 - 32 mmol/L Final Comment: Testing performed by: [address] [address] 12/30/2022 19 (L) 22 - 32 mmol/L Final 12/29/2022 20 (L) 22 - 32 mmol/L Final BUN Date Value Ref Range Status 01/23/2023 33 (H) 6 - 25 mg/dL Final Comment: Testing performed by: [address] [address] 12/30/2022 38 (H) 6 - 25 mg/dL Final 12/29/2022 36 (H) 6 - 25 mg/dL Final Creatinine Date Value Ref Range Status 01/23/2023 2.10 (H) 0.60 - 1.10 mg/dL Final Comment: Testing performed by: [address] [address] 12/30/2022 2.21 (H) 0.60 - 1.10 mg/dL Final 12/29/2022 2.43 (H) 0.60 - 1.10 mg/dL Final eGFR Date Value Ref Range Status 01/23/2023 25 mL/min/1.73 m2 Final Comment: Interpretive Data Reference Interval Normal >/= 90 mL/min/1.73m2 Mildly decreased* 60 - 89 mL/min/1.73m2 Mildly to moderately decreased 45 - 59 mL/min/1.73m2 Moderately to severely decreased 30 - 44 mL/min/1.73m2 Severely decreased 15 - 29 mL/min/1.73m2 Kidney Failure < 15 mL/min/1.73m2 *Relative to young adult level Estimated glomerular filtration rate is determined by the 2020 CKD-EPI equation recommended by the National Kidney Foundation (A Unifying Approach to GFR Estimation: Recommendations of the NKF-ASK Task Force on Reassessing the Inclusion of Race in Diagnosing Kidney Disease, MOISESSN 202). The CKD-EPI equation should not be used for patients with unstable renal function and has not been validated in children and those over 70. Current interpretive data was last reviewed 2021. Testing performed by: [facility], [address] [place] [address]., [address] 12/30/2022 23 mL/min/1.73 m2 Final Comment: Interpretive Data Reference Interval Normal >/= 90 mL/min/1.73m2 Mildly decreased* 60 - 89 mL/min/1.73m2 Mildly to moderately decreased 45 - 59 mL/min/1.73m2 Moderately to severely decreased 30 - 44 mL/min/1.73m2 Severely decreased 15 - 29 mL/min/1.73m2 Kidney Failure < 15 mL/min/1.73m2 *Relative to young adult level Estimated glomerular [...] Current interpretive data was last reviewed 2021. 12/29/2022 21 mL/min/1.73 m2 Final Comment: Interpretive Data Reference Interval Normal >/= 90 mL/min/1.73m2 Mildly decreased* 60 - 89 mL/min/1.73m2 Mildly to moderately decreased 45 - 59 mL/min/1.73m2 Moderately to severely decreased 30 - 44 mL/min/1.73m2 Severely decreased 15 - 29 mL/min/1.73m2 Kidney Failure < 15 mL/min/1.73m2 *Relative to young adult level Estimated glomerular filtration rate is determined by the 2020 CKD-EPI equation recommended by the National Kidney Foundation (A Unifying Approach to GFR Estimation: Recommendations of the NKF-ASK Task Force on Reassessing the Inclusion of Race in Diagnosing Kidney Disease, JASN 2021). The CKD-EPI equation should not be used for patients with unstable renal function and has not been validated in children and those over 70. Current interpretive data was last reviewed 2021. Glucose Date Value Ref Range Status 01/23/2023 196 70 - 199 mg/dL Final Comment: Interpretive [...] revised 2022. Testing performed by: [facility], [address] [place] [address]., [address] Alk phos Date Value Ref Range Status 12/30/2022 150 (H) 40 - 130 Units/L Final 12/29/2022 168 (H) 40 - 130 Units/L Final 12/28/2022 137 (H) 40 - 130 Units/L Final Bilirubin, total Date Value Ref Range Status 12/30/2022 <0.2 0.1 - 1.2 mg/dL Final 12/29/2022 <0.2 0.1 - 1.2 mg/dL Final 12/28/2022 <0.2 0.1 - 1.2 mg/dL Final Bilirubin, direct Date Value Ref Range Status 12/21/2022 <0.2 0.1 - 0.3 mg/dL Final 08/07/2021 <0.2 0.1 - 0.3 mg/dL Final Albumin Date Value Ref Range Status 12/30/2022 2.7 (L) 3.5 - 5.0 g/dL Final 12/29/2022 3.3 (L) 3.5 - 5.0 g/dL Final 12/28/2022 2.8 (L) 3.5 - 5.0 g/dL Final ALT Date Value Ref Range Status 12/30/2022 26 7 - 45 Units/L Final 12/29/2022 28 7 - 45 Units/L Final 12/28/2022 19 7 - 45 Units/L Final AST Date Value Ref Range Status 12/30/2022 28 10 - 45 Units/L Final 12/29/2022 30 10 - 45 Units/L Final 12/28/2022 23 10 - 45 Units/L Final TSH Date Value Ref Range Status 09/02/2021 1.52 0.30 - 4.20 mcIUnit/mL Final Comment: Testing performed by: [address] [address] 02/07/2021 1.54 0.30 - 4.20 mcIUnit/mL Final Comment: Testing performed by: [address] [address] TSH W REFLEX TO FT4 Date Value Ref Range Status 10/16/2020 0.990 0.27 - 4.20 uIU/mL Final Cholesterol Date Value Ref Range Status 09/10/2021 84 30 - 199 mg/dL Final Comment: Interpretive Data Ages < or = 19 years Acceptable: <170 mg/dL Borderline high: 170-199 mg/dL High: >or= 200 mg/dL Ages > or = 20 years Desirable: <200 mg/dL Borderline high: 200-239 mg/dL High: >or= 240 mg/dL Literature References: 1. Expert Panel on Integrated Guidelines for Cardiovascular Health and Risk Reduction in Children and Adolescents. Pediatrics 2011;128:S213 2. NCEP Expert Panel. Circulation 2004;110:227 Current Interpretive Data was last revised on 2018. 02/07/2021 133 30 - 199 mg/dL Final Comment: Interpretive Data Ages < or = 19 years Acceptable: <170 mg/dL Borderline high: 170-199 mg/dL High: >or= 200 mg/dL Ages > or = 20 years Desirable: <200 mg/dL Borderline high: 200-239 mg/dL High: >or= 240 mg/dL Literature References: 1. Expert Panel on Integrated Guidelines for Cardiovascular Health and Risk Reduction in Children and Adolescents. Pediatrics 2011;128:S213 2. NCEP Expert Panel. Circulation 2004;110:227 Current Interpretive Data was last revised on 2018. Testing performed by: [address] [address] 04/02/2020 211 (H) 0 - 199 mg/dL Final Comment: National Lipid Association/NCEP Guidelines: Desirable < 200 mg/dL Borderline high: 200-239 mg/dL High Risk: >=240 mg/dL Triglycerides Date Value Ref Range Status 09/10/2021 153 (H) <=149 mg/dL Final Comment: Interpretive Data Ages < or = 9 years Acceptable: <75 mg/dL Borderline high: 75-99 mg/dL High: >or= 100 mg/dL Ages 10 to 20 years Acceptable: <90 mg/dL Borderline high: 90-129 mg/dL High: >or= 130 mg/dL Ages > or = 20 years Desirable: <150 mg/dL Borderline high: 150-199 mg/dL High: 200-499 mg/dL Very high: >or= 499 mg/dL Literature References: 1. Expert Panel on Integrated Guidelines for Cardiovascular Health and Risk Reduction in Children and Adolescents. Pediatrics 2011;128:S213 2. NCEP Expert Panel. Circulation 2004;110:227 Current Interpretive Data was last revised on 2018. 02/07/2021 147 <=149 mg/dL Final Comment: Interpretive Data Ages < or = 9 years Acceptable: <75 mg/dL Borderline high: 75-99 mg/dL High: >or= 100 mg/dL Ages 10 to 20 years Acceptable: <90 mg/dL Borderline high: 90-129 mg/dL High: >or= 130 mg/dL Ages > or = 20 years Desirable: <150 mg/dL Borderline high: 150-199 mg/dL High: 200-499 mg/dL Very high: >or= 499 mg/dL Literature References: 1. Expert Panel on Integrated Guidelines for Cardiovascular Health and Risk Reduction in Children and Adolescents. Pediatrics 2011;128:S213 2. NCEP Expert Panel. Circulation 2004;110:227 Current Interpretive Data was last revised on 2018. Testing performed by: [facility], [address] [place] [address]., [address] 04/02/2020 123 0 - 149 mg/dL Final Comment: National Lipid Association/NCEP Guidelines: Normal < 150 mg/dL Borderline high 150-199 mg/dL High 200-499 mg/dL Very High >=500 mg/dL HDL Cholesterol Date Value Ref Range Status 04/02/2020 51 mg/dL Final Comment: Reference Ranges: Males: >=40 mg/dL Females: >=50 mg/dL HDL Date Value Ref Range Status 09/10/2021 33 (L) >=40 mg/dL Final Comment: Interpretive Data Ages < or = 19 years Acceptable: >45 mg/dL Borderline low: 40-45 mg/dL Low: <40 mg/dL Ages > or = 20 years Desirable: >or= 60 mg/dL Low: <40 mg/dL Literature References: 1. Expert Panel on Integrated Guidelines for Cardiovascular Health and Risk Reduction in Children and Adolescents. Pediatrics 2011;128:S213 2. NCEP Expert Panel. Circulation 2004;110:227 Current Interpretive Data was last revised on 2018. 02/07/2021 51 >=40 mg/dL Final Comment: Interpretive Data Ages < or = 19 years Acceptable: >45 mg/dL Borderline low: 40-45 mg/dL Low: <40 mg/dL Ages > or = 20 years Desirable: >or= 60 mg/dL Low: <40 mg/dL Literature References: 1. Expert Panel on Integrated Guidelines for Cardiovascular Health and Risk Reduction in Children and Adolescents. Pediatrics 2011;128:S213 2. NCEP Expert Panel. Circulation 2004;110:227 Current Interpretive Data was last revised on 2018. Testing performed by: [facility], [address] [place] [address]., [address] LDL, calculated Date Value Ref Range Status 09/10/2021 20 <=129 mg/dL Final Comment: Interpretive Data Ages < or = 19 years Acceptable: <110 mg/dL Borderline high: 110-129 mg/dL High: >or= 130 mg/dL Ages > or = 20 years Optimal: <100 mg/dL Near optimal: 100-129 mg/dL Borderline high: 130-159 mg/dL High: >160 mg/dL Literature References: 1. Expert Panel on Integrated Guidelines for Cardiovascular Health and Risk Reduction in Children and Adolescents. Pediatrics 2011;128:S213 2. NCEP Expert Panel. Circulation 2004;110:227 Current Interpretive Data was last revised on 2018. 02/07/2021 53 <=129 mg/dL Final Comment: Interpretive Data Ages < or = 19 years Acceptable: <110 mg/dL Borderline high: 110-129 mg/dL High: >or= 130 mg/dL Ages > or = 20 years Optimal: <100 mg/dL Near optimal: 100-129 mg/dL Borderline high: 130-159 mg/dL High: >160 mg/dL Literature References: 1. Expert Panel on Integrated Guidelines for Cardiovascular Health and Risk Reduction in Children and Adolescents. Pediatrics 2011;128:S213 2. NCEP Expert Panel. Circulation 2004;110:227 Current Interpretive Data was last revised on 2018. Testing performed by: [facility], [address] [place] [address]., [address] LDL Cholesterol, Calc Date Value Ref Range Status 04/02/2020 135 (H) 0 - 129 mg/dL Final Comment: National Lipid Association/NCEP Guidelines: Optimal < 100 mg/dL Near Optimal 100-129 mg/dL Borderline high 130-159 mg/dL High >=160 mg/dL NT-Pro-B Natriuret Pep Date Value Ref Range Status 07/24/2020 204 (H) 0 - 125 pg/mL Final Comment: Reference Range 0-74 years: 0-125 pg/mL >74 years: 0-450 pg/mL Method: [employer] technology Assessement and Plan -hypertension. Not taking her amlodipine. Normotensive. I will dc her amlodipine. -hyperlipidemia. She is on atorvastatin 20 mg daily. Lipids reviewed. -left lower extremity DVT. She is now off anticoagulation. -DM2. She is managed by primary care physician. -CKD 4. Sees Dr Ryan. Cr around 2.1 most recently. -moderate pulmonary hypertension by echocardiogram 11/2022, RVSP around 50 -Cardiac Risk Reduction: I have discussed with the patient the importance of healthy diet and regular exercise. Continue ASA. -schizophrenia -dementia We appreciate the opportunity to take care of Barbara Alicea Chakraborty. Please do not hesitate to call us if you have any questions or concerns. 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 Hospital Encounter [facility] [address] [place] [address] Jaya Grier MD [address] [place] [address] 07/13/2024 9:00 AM ADVERTISING PHOTOGRAPHER - 07/13/2024 9:30 AM ADVERTISING PHOTOGRAPHER Surgery [facility] [address] [place] [address] Jaya Grier MD [address] [place] [address] ESOPHAGOGASTRODUODENOSCOPY Scheduled Procedures Name Priority Associated Diagnoses Date/Ti me ESOPHAGOGASTRODUODENOSCOPY Anemia, unspecified type Gastritis without bleeding, unspecified chronicity, unspecified gastritis type 07/13/2024 9:00 AM ADVERTISING PHOTOGRAPHER COLONOSCOPY Iron deficiency anemia due to chronic blood loss documented as of this encounter Results * (ABNORMAL) CBC with auto differential (03/18/2023 3:24 PM CDT) WBC 8.5 3.8 - 9.9 K/cumm NILSA Comment:Testing performed by : [address] [address] Hgb 11.0(L) 11.9 - 15.5 g/dL NILSA Comment:Testing performed by : [address] [address] Hct 34.8(L) 35.6 - 45.5 % NILSA Comment:Testing performed by : [address] [address] Plt 287 150 - 400 K/cumm NILSA Comment:Testing performed by : [address] [address] MPV 10.7 9.1 - 12.3 fL NILSA Comment:Testing performed by : [address] [address] RBC 3.65(L) 3.90 - 5.20 M/cumm NILSA RODRIGES Comment:Testing performed by : [address] [address] MCV 95.3 81.3 - 96.4 fL NILSA RODRIGES Comment:Testing performed by : [address] [address] MCH 30.1 27.1 - 33.3 pg NILSA RODRIGES Comment:Testing performed by : [address] [address] MCHC 31.6(L) 32.3 - 35.7 g/dL NILSA RODRIGES Comment:Testing performed by : [address] [address] RDW CV 15.1(H) 11.1 - 14.9 % NILSA RODRIGES Comment:Testing performed by : [address] [address] RDW SD 52.5(H) 35.7 - 48.1 fL NILSA RODRIGES Comment:Testing performed by : [address] [address] NRBC abs 0.00 0.00 - 0.01 K/cumm NILSA RODRIGES Comment:Testing performed by : [address] [address] Blood 03/18/2023 3:24 PM CDT 03/18/2023 4:05 PM CDT us Santo Vail MD LAB BLOOD ORDERABLES Blessing l Result NILSA [address] [facility] Department of Laboratories [place], [place] [id number] * (ABNORMAL) Basic metabolic panel (03/18/2023 3:24 PM CDT) Pathologist [facility] Sodium 141 135 - 145 mmol/L NILSA RODRIGES Comment:Testing performed by : [address] [address] Potassium, pl 4.2 3.3 - 4.9 mmol/L NILSA RODRIGES Comment:Testing performed by : [address] [address] Chloride 108 97 - 110 mmol/L NILSA Comment:Testing performed by : [address] [address] CO2 20(L) 22 - 32 mmol/L NILSA Comment:Testing performed by : [address] [address] Anion gap 13 2 - 15 mmol/L NILSA Comment:Testing performed by : [address] [address] BUN 32(H) 6 - 25 mg/dL NILSA Comment:Testing performed by : [address] [address] Creatinine 2.20(H) 0.60 - 1.10 mg/dL NILSA Comment:Testing performed by : [address] [address] Glucose 132 70 - 199 mg/dL NILSA [...] was last revised 2022. Testing performed by: [address] [address] Calcium 9.5 8.5 - 10.3 mg/dL NILSA Comment:Testing performed by : [address] [address] Blood 03/18/2023 3:24 PM CDT 03/18/2023 4:01 PM CDT us Santo Vail MD LAB BLOOD ORDERABLES Blessing alicea Result NILSA [address] [facility] [place] [address] documented in this encounter Visit Diagnoses Diagnosis Dyspnea, unspecified type- Primary Hyperlipidemia associated with type 2 diabetes mellitus [...] 11/08/22, 12/12/22 11/08/2022 12/12/2022 06/10/2023 3:05 AM ADVERTISING PHOTOGRAPHER documented as of this encounter Care Teams Office Coordinator Relationship Specialty Start Date End Date Cherelle Corcoran MD PCP - General Family Medicine 08/30/19 Mark Queen MD Consulting Physician Infectious Diseases 01/10/20 Rudolph Welch MD [address] [place] [id number] Consulting Physician Infectious Diseases 12/05/22 Markie Ryan MD [address] [place] [address] Consulting Physician Nephrology 12/05/22 documented as of this encounter
--- OUTSIDE RECORDS SUMMARY | 2024-07-04 04:08 | XMS_ITS | Encounter Summary ---
Author Organization [facility] Address [address] [place] [address] Care Team Providers Care Seo Team Lead Name Role Phone Cherelle Corcoran MD Primary Care Pro vider Mark Queen MD Unavailable [phone] Anam Costa [facility] Unavailable [facility] Rudolph Welch MD Unavailable Markie Ryan MD Unavailable [phone] Nadege Ramírez RN Unavailable [phone] Reason for Visit * Reason Onset Date Comments JOY Questions 01/19/2023 Encounter Details Date Type Department Care Team ([facility] Contact Info) Description 01/19/2023 Telephone [facility] Primary Care at [address] [phone] Cherelle Corcoran MD [address] [place] [id number] JOY Questions Social History Tobacco Use [...] any clubs o r organizations such as jewish groups, unions, fraternal or athletic groups, or [...] in a correction (including now)? No 01/20/2023 Comments No Sex and Gender Information Value Date Recorded Sex Assigned at Not on file Legal Sex Female 9:03 AM CREATIVE DIRECTOR Gender Identity Female 02/08/2020 6:39 PM CDT Sexual Orientation Not on file documented as of this encounter Miscellaneous Notes * Telephone Encounter - Sandy Mota MA - 01/19/2023 10:38 AM CDT Acknowledged. * Telephone Encounter - Dana Mike MA - 01/19/2023 10:27 AM CDT JOY Questions ([place] [facility] Has patient been discharged at time of call? Yes Date Admitted: 12.29.22? Date Discharged: 01.17.23 [facility] Stay? weakness If prescribed new medications, do you have any questions or concerns? no Do you have enough medication to get you to your follow-up appointment? yes Since being released do you feel better, the same, or worse? better Date of JOY Appointment: 01.29.23 Do you have transportation to the appointment? yes Caller???s Callback #: [phone] Additional Comments: n/a Does message need to be routed? Yes-Action Needed documented in this encounter Plan of Treatment Upcoming Encounters Date Type Department Care Team (Latest Contact Info) Description 07/13/2024 9:00 AM CREATIVE DIRECTOR Hospital Encounter [facility] [address] [place] [address] Jaya Grier MD [address] [place] [address] 07/13/2024 9:00 AM CREATIVE DIRECTOR - 07/13/2024 9:30 AM CREATIVE DIRECTOR Surgery [facility] [address] [place] [address] Jaya Grier MD [address] [place] [address] ESOPHAGOGASTRODUODENOSCOPY Scheduled Procedures Name Priority Associated Diagnoses Date/Ti me ESOPHAGOGASTRODUODENOSCOPY Anemia, unspecified type Gastritis without bleeding, unspecified chronicity, unspecified gastritis type 07/13/2024 9:00 AM CREATIVE DIRECTOR COLONOSCOPY Iron deficiency anemia due to chronic blood loss documented as of this encounter Visit Diagnoses Not on filedocumented in this encounter Additional Health Concerns Infection Onset Date Last Indicated Resolved Time MRSA Comment:Toe 11/08/22, 12/12/22 11/08/2022 12/12/2022 06/10/2023 3:05 AM CREATIVE DIRECTOR documented as of this encounter Care Teams Seo Team Lead Relationship Specialty Start Date End Date Cherelle Corcoran MD PCP - General Family Medicine 08/30/19 Mark Queen MD Consulting Physician Infectious Diseases 01/10/20 Anam Costa LCSW Adjutant General 08/08/22 02/18/23 Rudolph Welch MD [address] [place] [address] Consulting Physician Infectious Diseases 12/05/22 Markie Ryan MD [address] [place] [address] Consulting Physician Nephrology 12/05/22 Nadege Ramírez, RN [address] [place] [address] [address] [place] [address] Ticket Machine Operator 01/20/23 02/23/23 documented as of this encounter
--- OUTSIDE RECORDS SUMMARY | 2024-07-04 04:09 | XMS_ITS | Encounter Summary ---
Author Organization [facility] Healthcare Address [address] [place] [address] Care Team Providers Care Director Of Acquisition Marketing Name Role Phone Cherelle Corcoran MD Primary Care Pro vider Mark Queen MD Unavailable [phone] Anam Costa [facility] Unavailable Unavailabl e Rudolph Welch MD Unavailable [phone] Markie Ryan MD Unavailable [phone] Encounter Details Date Type Department Care Team (Late st Contact Info) Description 12/19/2022 7:00 PM CDT Ancillary Procedure [facility] Outside Films Social History Tobacco Use Types Packs/Day Years [...] neighbors? More than three times a week 12/08/2022 How often do you get togethe r with friends or relatives? More than three times a week 12/08/2022 How often do you attend [facility] or [facility] services? Never 12/08/2022 Do you belong to any clubs o r organizations such as shinto groups, unions, fraternal or athletic groups, or school groups? No 12/08/2022 How often do you attend meet ings of the clubs or organizations you belong to? Never 12/08/2022 Are you , , di vorced, , never , or living with a partner? 12/08/2022 AUDIT-C Answer Date Recorded Q1: How often [...] food, housing, medical care, and heating? Not hard at all 12/08/2022 PHQ-2 Answer Date Recorded PHQ-2 Total Score (If total score is 3 or more points, staff should administer the PHQ-9) 0 06/09/2022 Hunger Vital Sign Answer Date Recorded Within the past 12 months, y ou worried that your food would run out before you got the money to buy more. Never true 12/09/19 23 Within the past 12 months, t he food you bought just didn't last and you didn't have money to get more. Never true 12/08/2022 PRAPARE - Transportation Answer Date Re corded In the past 12 months, has l ack of transportation kept you from medical appointments or from getting medications? No 11/20 In the past 12 months, has l ack of transportation kept you from meetings, work, or from getting things needed for daily living? No 12/08/2022 Housing Stability Vital Sign Answer Fuentes e Recorded In the last 12 months, was t here a time when you were not able to pay the mortgage or rent on time? No 12/08/2022 In the last 12 months, how many places have you lived? 1 12/08/2022 In the last 12 months, was t here a time when you did not have a steady place to sleep or slept in a snf (including now)? 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 Sex Female 9:03 AM ALIGNING CHECKER Gender Identity Female 02/08/2020 6:39 PM CDT Sexual Orientation Not on file documented as of this encounter Plan of Treatment Upcoming Encounters Date Type Department Care Team (Latest Contact Info) Description 07/13/2024 9:00 AM ALIGNING CHECKER Hospital Encounter [facility] [address] [place] [address] Jaya Grier MD [address] [place] [address] 07/13/2024 9:00 AM ALIGNING CHECKER - 07/13/2024 9:30 AM ALIGNING CHECKER Surgery [facility] [address] [place] [address] Jaya Grier MD [address] [place] [address] ESOPHAGOGASTRODUODENOSCOPY Scheduled Procedures Name Priority Associated Diagnoses Date/Ti me ESOPHAGOGASTRODUODENOSCOPY Anemia, unspecified type Gastritis without bleeding, unspecified chronicity, unspecified gastritis type 07/13/2024 9:00 AM ALIGNING CHECKER COLONOSCOPY Iron deficiency anemia due to chronic blood loss documented as of this encounter Procedures Procedure Name Priority Date/Time Associated Diagnosis Comments XR TRANSFER OF OUTSIDE FILMS Routine 12/19/2022 7:00 PM CDT documented in this encounter Results * XR Outside Reference (12/19/2022 7:00 PM CDT) Narrative [facility] - 01/08/2023 2:54 PM CDT This order has been auto-finalized and does not contain a result. us Not In File Miscellaneous IMG XR PROCEDURES Blessing l Result [facility] documented in this encounter Visit Diagnoses Not on filedocumented in this encounter Additional Health Concerns Infection Onset Date Last Indicated Resolved Time MRSA Comment:Toe 11/08/22, 12/12/22 11/08/2022 12/12/202206/10/2023 3:05 AM ALIGNING CHECKER documented as of this encounter Care Teams Director Of Acquisition Marketing Relationship Specialty Start Date End Date Cherelle Corcoran MD PCP - General Family Medicine 08/30/19 Mark Queen MD Consulting Physician Infectious Diseases 01/10/20 Anam Costa LCSW Regulatory Affairs Specialist 08/08/22 02/18/23 Rudolph Welch MD [address] [place] [address] Consulting Physician Infectious Diseases 12/05/22 Markie Ryan MD [address] [place] [address] Consulting Physician Nephrology 12/05/22 documented as of this encounter
--- OUTSIDE RECORDS SUMMARY | 2024-07-04 04:09 | XMS_ITS | Encounter Summary ---
Author Organization [facility] Healthcare Address [address] [place] [address] Care Team Providers Care Director Data Name Role Phone Cherelle Corcoran MD Primary Care Pro vider Mark Queen MD Unavailable [phone] Anam Costa [facility] Unavailable Unavailabl Melania Moncada RN Unavailable [phone] Rudolph Welch MD Unavailable [phone] Markie Ryan MD Unavailable [phone] Reason for Referral * Home Health (Routine) - Closed Specialty Diagnoses / Procedures Referred By Contac t Referred To Contact Home Health Services / Home Health and Hospice Diagnoses Shortness of breath Acute systolic congestive heart failure (CMS/HCC) (HCC) Osteomyelitis of great toe of right foot (CMS/HCC) (HCC) Amputation of toe of right foot (CMS/HCC) (HCC) [place] [id number] [facility] [address] [place] [address] Phone: tel: fax: [facility] Home Care Services [facility] [address] [place] [address] Referral ID Status Reason Start Date Expiration Date V isits Requested Visits Authorized [id number] Closed Specialty Services Required 12/13/2022 01/12/2024 1 1 Question Answer [facility] Primary disciplines requested: Jail, Physical Therapy Secondary disciplines requested: Occupational Therapy Home Health Services Disease and Medication Management, Therapy to Eval/Tx, Wound/Ostomy Care Does the patient have a wound vac? No Therapy instructions: Evaluation/treatment, Home safety evaluation Requested Start of Care Date: 24-48 hours [...] face to face encounter occurred on (date): 12/13/2022 The encounter with the patient was in whole, or in part, for the following medical condition, which is the primary reason for home health care. (List medical condition): Right great toe osteomyelitis, type 2 diabetes, CHF, chronic kidney disease, generalized weakness I certify that, based on my findings, the following services are medically necessary skilled home health services: Therapy to Eval/Tx, Wound/Ostomy Care Clinical findings that support the need for home care: Medical condition requiring skilled assessment/education, Frequent falls requiring safety eval/therapy I certify that my clinical findings support patient's homebound status. Homebound criteria met because: Poor endurance, Shortness of breath with minimal exertion, Abnormal gait/unsteady balance resulting in fall risk * Home Health (Routine) - Closed Specialty Diagnoses / Procedures Referred By Contac t Referred To Contact Home Health Services / Home Health and Hospice Diagnoses Osteomyelitis of great toe of right foot (CMS/HCC) (HCC) [place] [id number] [facility] [address] [place] [address] Phone: tel: fax: [facility] Home Care Services [address] [place] [address] Phone: tel: fax: Referral ID Status Reason Start Date Expiration Date V isits Requested Visits Authorized [id number] Closed Specialty Services Required 12/09/2022 01/08/2024 1 1 Question Answer [facility] Health and Infusion Primary disciplines requested: Jail, Physical Therapy Secondary disciplines requested: Occupational Therapy Home Health Services Therapy to Eval/Tx, Disease and Medication Management, Labs, Wound/Ostomy Care, Other Comment: RESUME [facility] HOME INFUSION & [facility] HOME HEALTH NURSING, PT, OT Does the patient have a wound vac? No Wound Information: RIGHT GREAT TOE: wound care daily as ordered and PRN for loose or soiled dressing. Daily paint with betadine and leave open to air. Therapy instructions: Caregiver training/eduction, Evaluation/treatment, Home safety evaluation Labs: CBC with Differential, CMP CBC frequency: Once a week CMP frequency: Once a week Date to Start Labs: 12/11/2022 Infusion Services IV Catheter Maintenance (Infusion), Infusion Therapy, Labs (Infusion) IV Catheter Types: PICC Line Number of Lumens: 2 IV Catheter Dressing Change Instructions: Evaluate, manage, and change the dressing weekly IV Catheter Flush Care Instructions: Evaluate and manage the IV catheter to maintain patency Infusion Therapy: Antibiotic Therapy How many antibiotic therapies: 1 ABX Medication 1: Ceftriaxone ABX Dose 1: 2 gram ABX Route 1: IV ABX Frequency 1: q24h ABX Therapy Duration 1: thru 12/23/2022 Physician to follow patient's care (the person listed here will be responsible for signing ongoing orders): Other Comment: IV abx & labs - Dr. Krishna Rizvi, Infectious Disease O: [phone], F: [phone]; PT/OT, Wound Care - PCP [phone] Requested Start of Care Date: 24-48 hours I certify that, based on my findings, the following services are medically necessary skilled home health services: Labs, Therapy to Eval/Tx, Wound/Ostomy Care I certify that, based on my findings, the following services are medically necessary skilled home infusion services: IV Catheter Maintenance (Infusion), Infusion Therapy, Labs (Infusion) I attest that I or another qualified licensed provider saw the patient 90 days prior to or 30 days post admission and this face to face encounter meets the necessary Home Health requirements. The face to face encounter occurred on (date): 12/09/2022 The encounter with the patient was in whole, or in part, for the following medical condition, which is the primary reason for home health care. (List medical condition): Right great toe ulcer with osteomyelitis Clinical findings that support the need for home care: Medical condition requiring skilled assessment/education, Wound requiring care, assessment, and instruction, Lack of knowledge regarding medications, requires education and assessment I certify that my clinical findings support patient's homebound status. Homebound criteria met because: Requires assistance of another to leave home safely Referral/ Patient Comments RESUME [facility] HOME INFUSION & [facility] HOME HEALTH NURSING, PT, OT Reason for Visit * Reason Comments Shortness of Breath * Auth/Cert (Routine) Specialty Diagnoses / Procedures Referred By Maryse t Referred To Contact Diagnoses Shortness of breath Acute systolic congestive heart failure (CMS/HCC) (HCC) Acute congestive heart failure, unspecified heart failure type (HCC) Procedures NA Referral ID Status Reason Start Date Expiration Date Visits Re quested Visits Authorized [id number] 1 1 Encounter Details Date Type Department Care Team (Late st Contact Info) Description 12/06/2022 2:04 PM CDT - 12/18/2022 9:30 PM CDT Hospital Encounter [id number] [place] [address] [place] [id number] [facility] [address] [place] [address] [place] [id number] [id number] [place] [address] [place] [id number] [facility] [address] [place] [address] [place] [phone] [facility] [address] [place] [address] [place] [id number] [id number] [place] [address] [place] [id number] Osteomyelitis of great toe of right foot (CMS/HCC) (HCC) (Primary Dx); Shortness of breath; Acute systolic congestive heart failure (CMS/HCC) (HCC); Amputation of toe of right foot (CMS/HCC) (HCC) Discharge Disposition: Discharge to home, home health [...] week 12/08/2022 How often do you attend chur ch or islam services? Never 12/08/2022 Do you belong to [...] in a senior living (including now)? 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 Sex Female 9:03 AM [employer] Gender Identity Female 02/08/2020 6:39 PM CDT Sexual Orientation Not on file documented as of this encounter Last Filed Vital Signs Vital Sign Reading Time Taken Comments Blood Pressure 152/65 12/18/2022 7:54 PM CDT Pulse 71 12/18/2022 7:54 PM CDT Temperature 36.6 ??C (97.9 ??F) 12/18/2022 7:54 PM CD T Respiratory Rate 18 12/18/2022 7:54 PM CDT Oxygen Saturation 97% 12/18/2022 7:54 PM CDT Inhaled Oxygen Concentration - - Weight 78.9 kg (173 lb 15.1 oz) 12/06/2022 6:30 PM CDT Height 157.5 cm (5' 2.01 ) 12/06/2022 6:30 PM CD T Body Mass Index 31.81 12/06/2022 6:30 PM CDT documented in this encounter Discharge Summaries * Larry Dennis MD - 12/18/2022 7:37 PM CDT Images from the original note were not included. Inpatient Discharge Summary Patient Name - Sixto Chakraborty Patient Age - 72 yrs Patient - [id number] [facility] - [id number] Document Creation Date: 12/18/2022 Admitting Provider, MD: Darlyn Guzman MD Discharge Provider, : Larry Dennis MD Primary Care Physician at Discharge: Cherelle Corcoran MD [phone] Admission Date: 12/06/2022 Discharge Date/time: 12/18/2022 Admission Location: [facility] LOS - LOS: 12 days DETAILS OF HOSPITAL STAY Hospital Problems/Diagnoses Principal Problem: Acute on chronic diastolic congestive heart failure (CMS/HCC) ([facility]) Active Problems: Type 2 diabetes mellitus with diabetic neuropathy, with long-term current use of insulin (CMS/HCC) ([facility]) Schizoaffective disorder, bipolar type (CMS/HCC) ([facility]) 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 2 diabetes mellitus (CMS/HCC) ([facility]) Late onset Alzheimer's dementia without behavioral disturbance ([facility]) Osteomyelitis of great toe of right foot (CMS/HCC) (HCC) BRENDA (acute kidney injury) (CMS/HCC) ([facility]) Bibasilar consolidations Movement disorder Shortness of breath Reason for Hospitalization: Hospital Course: This is a 72-year-old female with history of CHF, chronic kidney disease, osteomyelitis, diabetes, schizophrenia who came to the hospital with complaint of shortness a breath. Patient noted to be volume overloaded. Patient has now been transitioned to oral diuretics. Infectious Disease has been guiding IV antibiotics. Adjustments in IV antibiotics noted-cefepime now discontinued. Infectious Disease has been guiding IV antibiotics. Patient previously noted to be on vancomycin/Flagyl. Changed vancomycin to daptomycin. INTERVAL HISTORY 12/17/2022: in bed pleasant eating breakfast awake alert. Discussed with social scientist. Planning for discharge on antibiotics now on daptomycin q.48h hourly through 12/2312/18/2022 up in chair doing okay daughter states she will coal picker late at night. Home health arranged for outpatient IV antibiotics. Will discharge home today when daughter comes to pick her up See Infectious Disease pt below Infectious disease Plan: Continue daptomycin 6 mg/kg q.48h due to ease of administration and less monitoring and Flagyl to 12/23, Discuss with Nephrology about the vancomycin and renal insufficiency, Nephrology thinks it is related to diuretics and not vancomycin induced and recommended to continue 4. CBC, CMP, CK level weekly faxed to [phone] 5. Okay to DC from ID perspective Discharge Details Physical Exam at Discharge: Discharge Condition: stable Pulse: 65 Resp: 19 BP: 142/65 Temp: 36.8 ??C (98.2 ??F) Weight: 78.9 kg (173 lb 15.1 oz) Pertinent Exam Findings at Discharge: Chest clear Cardiovascular both heart sounds present Abdomen soft Discharge Disposition: Discharge to home, home health skilled care Code Status at Discharge: Full Code Active Issues & Recommended Plan for Follow-up: Allergies: Patient has no known allergies. Discharge Medications: Your medication list START taking these medications Instructions Last Dose Given Next Dose Due aspirin 81 mg chewable tablet Start taking on: December 19, 2022 81 mg, oral, Daily DAPTOmycin 50 mg/mL injection Commonly known as: CUBICIN 6 mg/kg (370 mg), intravenous, Every 48 hours metroNIDAZOLE 500 mg tablet Commonly known as: FLAGYL 500 mg, oral, 3 times daily vancomycin 1,000 mg injection Commonly known as: VANCOCIN Continue until 12/23 CHANGE how you take these medications Instructions Last Dose Given Next Dose Due amLODIPine 10 mg tablet Commonly known as: NORVASC What changed: Another medication with the same name was changed. Make sure you understand how and when to take each. 10 mg, oral, Nightly amLODIPine 10 mg tablet Commonly known as: NORVASC What changed: medication strength how much to take 10 mg, oral, Nightly carvediloL 6.25 mg tablet Commonly known as: COREG What changed: medication strength how much to take 6.25 mg, oral, 2 times daily with meals (bkfst, dinner) furosemide 20 mg tablet Commonly known as: LASIX What changed: medication strength how much to take 60 mg, oral, 2 times daily insulin glargine 100 unit/mL (3 mL) pen for injection Commonly known as: LANTUS, BASAGLAR, SEMGLEE What changed: how much to take 15 Units, subcutaneous, Nightly, To start once blood sugars are consistently above 200 CONTINUE taking these medications Instructions Last Dose Given Next Dose Due acetaminophen 325 mg tablet Commonly known as: TYLENOL 650 mg, oral, Every 6 hours PRN albuterol HFA 90 mcg/actuation inhaler Commonly known as: ProAir HFA 2 puffs, inhalation, Every 4 hours PRN ascorbic acid 500 mg tablet,chewable Commonly known as: VITAMIN C 500 mg, oral, 2 times daily atorvastatin 20 mg tablet Commonly known as: LIPITOR 20 mg, oral, Nightly benztropine 1 mg tablet Commonly known as: COGENTIN 1.5 mg, oral, Nightly bisacodyL 10 mg suppository Commonly known as: DULCOLAX 10 mg, rectal, Daily PRN bisacodyL 10 mg/30 mL enema Commonly known as: FLEET-BISACODYL 30 mL, rectal, Daily PRN conner.stocking,thigh,reg,med misc Wear as much as possible epoetin isaiah-epbx (10,000 unit/mL) solution Commonly known as: RETACRIT 10,000 Units, subcutaneous, Weekly famotidine 10 mg tablet Commonly known as: PEPCID 10 mg, oral, Daily ferrous sulfate 325 mg (65 mg of elemental iron) tablet 325 mg, oral, 2 times daily FreeStyle Madhav 2 [facility] Doctor's comments: May or may not need Generic drug: flash glucose scanning reader Use to continually monitor glucose FreeStyle Madhav 2 Sensor kit Doctor's comments: Type 2 diabetic, on 2 insulin Generic drug: flash glucose sensor Use to continually monitor glucose, change every 14 days insulin lispro 100 unit/mL pen for injection Commonly known as: HumaLOG, ADMELOG 7 Units, subcutaneous, 3 times daily before meals, plus sliding scale insulin lispro 100 unit/mL pen for injection Commonly known as: HumaLOG, ADMELOG 0-12 Units, subcutaneous, 3 times daily before meals, per sliding scale --> BG 0-140 = 0 units BG 141-174 = 2 units BG 175-199 = 4 units BG 200-249 = 6 units BG 250-299 = 8 units BG 300-349 = 10 units BG 350-400 = 12 units BG >400 = call lidocaine 4 % adhesive patch,medicated Commonly known as: ASPERCREME 1 patch, transdermal, Daily, to lower back magnesium citrate solution 296 mL, oral, Daily PRN multivitamin with minerals tablet 1 tablet, oral, Daily polyethylene glycol 17 gram packet Commonly known as: MIRALAX 17 g, oral, Daily PRN pregabalin 75 mg capsule Commonly known as: LYRICA 75 mg, oral, Nightly Pro-Stat Renal Care 15-100 gram-kcal/30 mL liquid Generic drug: amino acids-protein hydr-fiber 30 mL, oral, 2 times daily risperiDONE 2 mg tablet Doctor's comments: Discontinue Haldol Commonly known as: RisperDAL 2 mg, oral, Nightly Saccharomyces boulardii 250 mg capsule Commonly known as: FLORASTOR 250 mg, oral, 2 times daily, while receiving antibiotic therapy STOP taking these medications cefTRIAXone syringe Commonly known as: ROCEPHIN doxycycline monohydrate 100 mg capsule Commonly known as: MONODOX dulaglutide 1.5 mg/0.5 mL pen injector Commonly known as: TRULICITY magnesium hydroxide 80 mg/mL (33.3 mg/mL as elemental magnesium) Commonly known as: MILK OF MAGNESIA Where to Get Your Medications These medications were sent to [facility] [id number] [place] [id number] [facility] [id number] amLODIPine 10 mg tablet carvediloL 6.25 mg tablet furosemide 20 mg tablet metroNIDAZOLE 500 mg tablet [id number] [place], [place] - [address] [place] [address] AT [address] [id number] aspirin 81 mg chewable tablet insulin glargine 100 unit/mL (3 mL) pen for injection You can get these medications from any pharmacy Bring a paper prescription for each of these medications DAPTOmycin 50 mg/mL injection Information about where to get these medications is not yet available Ask your nurse or doctor about these medications vancomycin 1,000 mg injection Time Spent in Discharge Process: I have spent 40 minutes on discharge planning activities. Time spent was on Coordination of care, Follow up , and discharge exam Test Results Pending at Discharge (If Blank, None Found): Operative Procedures Performed (If Blank, None Found): Outpatient Follow-Up: Future Appointments Date Time Provider Department Center 12/19/2022 To Be Determined HH RESOURCE PT [facility] None 12/19/2022 To Be Determined HH RESOURCE OT [facility] None 12/19/2022 To Be Determined HH RESOURCE RN AILEEN [facility] None 02/18/2023 12:15 PM Nikhil Jones MD MB CARD [facility] Specialty 03/11/2023 1:45 PM Markie Ryan MD [id number] Specialty Contact Information for Follow-ups [facility] Home Care Services Specialty: Home Health and Hospice [id number] [facility] [id number] Next Steps: Follow up Questions: Service Line: Home Health and Infusion Primary disciplines requested: Jail Physical Therapy Secondary disciplines requested: Occupational Therapy Home Health Services: Therapy to Eval/Tx Disease and Medication Management Labs Wound/Ostomy Care Other Comment: RESUME [facility] HOME INFUSION & [facility] HOME HEALTH NURSING, PT, OT Does the patient have a wound vac?: No Wound Information: RIGHT GREAT TOE: wound care daily as ordered and PRN for loose or soiled dressing. Daily paint with betadine and leave open to air. Therapy instructions: Caregiver training/eduction Evaluation/treatment Home safety evaluation Labs: CBC with Differential CMP CBC frequency: Once a week CMP frequency: Once a week Date to Start Labs: 12/11/2022 Infusion Services: IV Catheter Maintenance (Infusion) Infusion Therapy Labs (Infusion) IV Catheter Types: PICC Line Number of Lumens: 2 IV Catheter Dressing Change Instructions: Evaluate, manage, and change the dressing weekly IV Catheter Flush Care Instructions: Evaluate and manage the IV catheter to maintain patency Infusion Therapy: Antibiotic Therapy How many antibiotic therapies: 1 ABX Medication 1: Ceftriaxone ABX Dose 1: 2 gram ABX Route 1: IV ABX Frequency 1: q24h ABX Therapy Duration 1: thru 12/23/2022 Physician to follow patient's care (the person listed here will be responsible for signing ongoing orders): Other Comment: IV abx & labs - Dr. Krishna Rizvi, Infectious Disease O: [phone], F: [phone]; PT/OT, Wound Care - PCP [phone] Requested Start of Care Date: 24-48 hours I certify that, based on my findings, the following services are medically necessary skilled home health services: Labs Therapy to Eval/Tx Wound/Ostomy Care I certify that, based on my findings, the following services are medically necessary skilled home infusion services: IV Catheter Maintenance (Infusion) Infusion Therapy Labs (Infusion) I attest that I or another qualified licensed provider saw the patient 90 days prior to or 30 days post admission and this face to face encounter meets the necessary Home Health requirements. The face to face encounter occurred on (date): 12/09/2022 The encounter with the patient was in whole, or in part, for the following medical condition, whichis the primary reason for home health care. (List medical condition): Right great toe ulcer with osteomyelitis Clinical findings that support the need for home care: Medical condition requiring skilled assessment/education Wound requiring care, assessment, and instruction Lack of knowledge regarding medications, requires education and assessment I certify that my clinical findings support patient's homebound status. Homebound criteria met because: Requires assistance of another to leave home safely Referral/ Patient Comments: RESUME [facility] HOME INFUSION & [facility] HOME HEALTH NURSING, PT, OT Referral Status: Some Visits Scheduled [facility] Home Care Services Specialty: Home Health and Hospice [facility] [facility] [address] Next Steps: Follow up Questions: Service Line: Home Health Primary disciplines requested: Jail Physical Therapy Secondary disciplines requested: Occupational Therapy Home Health Services: Disease and Medication Management Therapy to Eval/Tx Wound/Ostomy Care Does the patient have a wound vac?: No Therapy instructions: Evaluation/treatment Home safety evaluation Requested Start of Care Date: 24-48 hours [...] face to face encounter occurred on (date): 12/13/2022 The encounter with the patient was in whole, or in part, for the following medical condition, whichis the primary reason for home health care. (List medical condition): Right great toe osteomyelitis, type 2 diabetes, CHF, chronic kidney disease, generalized weakness I certify that, based on my findings, the following services are medically necessary skilled home health services: Therapy to Eval/Tx Wound/Ostomy Care Clinical findings that support the need for home care: Medical condition requiring skilled assessment/education Frequent falls requiring safety eval/therapy I certify that my clinical findings support patient's homebound status. Homebound criteria met because: Poor endurance Shortness of breath with minimal exertion Abnormal gait/unsteady balance resulting in fall risk Referral Status: Pending Authorization [facility] Home Care Services Specialty: Home Health and Hospice [address] [facility] [id number] Next Steps: Follow up Questions: Service Line: Home Health and Infusion Primary disciplines requested: Jail Physical Therapy Secondary disciplines requested: Occupational Therapy Home Health Services: Wound/Ostomy Care Disease and Medication Management Therapy to Eval/Tx IV Catheter Maintenance Labs Does the patient have a wound vac?: No Wound Information: RIGHT GREAT TOE: nurse to perform wound care daily as ordered and PRN for loose or soiled dressing. Daily paint with betadine and leave open to air Therapy instructions: Evaluation/treatment Caregiver training/eduction IV Catheter Types: PICC Line Number of Lumens: 2 IV Catheter Flush Care Instructions: Evaluate and manage the IV catheter to maintain patency IV Catheter Dressing Change Instructions: Evaluate, manage, and change the dressing weekly Labs: CBC with Differential CMP CK CBC frequency: Once a week CK frequency: Once a week CMP frequency: Once a week Date to Start Labs: 12/18/2022 Infusion Services: IV Catheter Maintenance (Infusion) Infusion Therapy Labs (Infusion) Infusion Therapy: Antibiotic Therapy How many antibiotic therapies: 1 ABX Medication 1: Daptomycin ABX Dose 1: 350 mg ABX Route 1: IV ABX Frequency 1: q48h ABX Therapy Duration 1: thru 12/23/2022 Physician to follow patient's care (the person listed here will be responsible for signing ongoing orders): Other Comment: Abx, labs, PICC management -Dr. Krishna Rizvi, Infectious Disease O: [phone], F: [phone]; PT/OT, Wound Care - PCP [phone] Requested Start of Care Date: 24-48 hours I certify that, based on my findings, the following services are medically necessary skilled home health services: IV Catheter Maintenance Labs Therapy to Eval/Tx Wound/Ostomy Care I certify that, based on my findings, the following services are medically necessary skilled home infusion services: IV Catheter Maintenance (Infusion) Infusion Therapy Labs (Infusion) I attest that I or another qualified licensed provider saw the patient 90 days prior to or 30 days post admission and this face to face encounter meets the necessary Home Health requirements. The face to face encounter occurred on (date): 12/16/2022 The encounter with the patient was in whole, or in part, for the following medical condition, whichis the primary reason for home health care. (List medical condition): Right great toe ulcer with osteomyelitis, dementia, chronic kidney disease, bilateral pleural effusion Clinical findings that support the need for home care: Medical condition requiring skilled assessment/education Frequent falls requiring safety eval/therapy I certify that my clinical findings support patient's homebound status. Homebound criteria met because: Poor endurance Shortness of breath with minimal exertion Pain with minimal activity or rest Referral Status: Some Visits Scheduled Please schedule an appointment with the following provider(s): [facility] [address] [place] [id number] [facility] [address] [place] [id number] [facility] [address] [place] [id number] ANCILLARY INFORMATION Other Procedures & Diagnostic Tests: XR Chest PA Lateral 2 Views Result Date: 12/07/2022 EXAMINATION: XR CHEST PA LATERAL 2 VIEWS HISTORY: The patient is a 72 year old female who presents with shortness of breath. Comparison is made with the previous study dated 12/06/2022. TECHNIQUE: APand lateral portable view of the chest. FINDINGS: There is a tiny right effusion. The remainder of the lungs are clear. Heart not enlarged. Aortic atherosclerosis. No failure. The tip of a left PICC line is in the distal superior vena cava. Tiny right effusion. Electronically signed by: Arabella Ma M.D. XR Chest 1 Vw Portable Result Date: 12/06/2022 EXAM: XR CHEST 1 VIEW DATE: 12/06/2022 3:00 PM CLINICAL HISTORY: Shortness of breath. COMPARISON: 11/30/2022 FINDINGS: Portable AP radiograph of the chest was obtained. The heart size is normal. The lungs are well-expanded. There are bilateral pleural effusions and there is consolidation in both lung bases. The upper lung cavanaugh are clear. Interval development of bilateral pleural effusions and bibasilar consolidation. Electronically signed by: Wilner Rodriguez M.D. ECG 12 lead Result Date: 12/06/2022 Vent Rate: 68 bpm RR Interval: 873 msec MO Interval: 175 msec QRS Duration: 73 msec QT Interval: 422 msec QTC Interval: 440 msec P-R-T [place]: 98 - 20 - 20 degrees SINUS RHYTHM LOW QRS VOLTAGE IN PRECORDIAL LEADS [QRS DEFLECTION < 1.0 mV IN CHEST LEADS] BORDERLINE ECG Compared to previous ECG the low-voltage is new Electronically Signed By: Audie Gould MD, [facility] Recent Labs: Recent Labs Lab Units 12/18/22 0551 12/17/22 0602 12/16/22 0525 WBC K/cumm 10.9* 10.7* 11.0* HEMOGLOBIN g/dL 9.6* 8.8* 8.2* HEMATOCRIT % 30.6* 28.5* 27.0* PLATELETS K/cumm 316 314 303 Recent Labs Lab Units 12/18/22 0551 12/17/22 0602 12/16/22 0525 WBC K/cumm 10.9* 10.7* 11.0* HEMOGLOBIN g/dL 9.6* 8.8* 8.2* HEMATOCRIT % 30.6* 28.5* 27.0* PLATELETS K/cumm 316 314 303 NEUTROS PCT % 58.6 59.7 66.2 LYMPHS PCT % 29.1 27.8 23.2 MONOS PCT % 8.9 9.1 7.9 EOS PCT % 2.4 2.5 1.9 Recent Labs Lab Units 12/18/22 1721 12/18/22 0749 12/18/22 0551 12/17/22 0718 12/17/22 0602 12/16/22 0727 12/16/22 0525 SODIUM mmol/L -- -- 140 -- 142 -- 141 POTASSIUM PLASMA mmol/L -- -- 4.1 -- 4.4 -- 4.4 CHLORIDE mmol/L -- -- 104 -- 107 -- 107 CO2 mmol/L -- -- 21* -- 24 -- 23 BUN SERUM mg/dL -- -- 61* -- 53* -- 52* CREATININE mg/dL -- -- 2.37* -- 2.26* -- 2.44* RBX-HPM-DBMVEPE mL/min/1.73 m2 -- -- 21 -- 22 -- 21 GLUCOSE mg/dL -- -- 152 -- 202* -- 140 POC GLUCOSE MONITOR mg/dL 247* < > -- < > -- < > -- CALCIUM mg/dL -- -- 9.5 -- 9.3 -- 9.2 ALBUMIN g/dL -- -- 2.5* -- 2.7* -- 2.9* PHOSPHORUS PLASMA mg/dL -- -- 4.9* -- 4.8* -- 4.1 < > = values in this interval not displayed. Recent Labs Lab Units 12/18/22 1721 12/18/22 1215 12/18/22 1213 12/18/22 0749 12/18/22 0551 12/17/22 0718 12/17/22 0612/16/22 0727 12/16/22 0525 SODIUM mmol/L -- -- -- -- 140 -- 142 -- 141 POTASSIUM PLASMA mmol/L -- -- -- -- 4.1 -- 4.4 -- 4.4 CHLORIDE mmol/L -- -- -- -- 104 -- 107 -- 107 CO2 mmol/L -- -- -- -- 21* -- 24 -- 23 ANIONGAP mmol/L -- -- -- -- 15 -- 11 -- 11 GLUCOSE mg/dL -- -- -- -- 152 -- 202* -- 140 POC GLUCOSE MONITOR mg/dL 247* 242* 255* < > -- < > -- < > -- BUN SERUM mg/dL -- -- -- -- 61* -- 53* -- 52* CREATININE mg/dL -- -- -- -- 2.37* -- 2.26* -- 2.44* CALCIUM mg/dL -- -- -- -- 9.5 -- 9.3 -- 9.2 ALBUMIN g/dL -- -- -- -- 2.5* -- 2.7* -- 2.9* < > = values in this interval not displayed. No lab exists for component: JUANALANTOINE Recent Labs Lab Units 12/18/22 0551 12/17/22 0612/16/22 0525 MAGNESIUM mg/dL 2.1 2.2 2.2 Lab Results Component Value Date GLUCOSE 247 (H) 12/18/2022 GLUCOSE 242 (H) 12/18/2022 GLUCOSE 255 (H) 12/18/2022 Implant: Implants No active implants to display in this view. General Precautions (If Blank, None Found): Isolation Status: Contact Nutritional Status and in-house recommendations: Dietary Orders (From admission, onward) Start Ordered 12/13/22 0700 Oral Nutrition Supplements Select Supplement: Ensure High Protein - Any flavor With Breakfast Question: Select Supplement: Answer: Ensure High Protein - Any flavor 12/12/22 1503 12/06/22 2356 Adult Diet Restricted; Low Fat, Low Chol, Low Na, 2 GM Sodium; Consistent Carb 1600 chanelle; Renal Diet effective now Question Answer Comment (CH) Diet type Restricted Fat / Sodium Restriction: Low Fat, Low Chol, Low Na Fat / Sodium Restriction: 2 GM Sodium Diabetic: Consistent Carb 1600 chanelle Renal: Renal 12/07/22 0000 Anticoagulation Indication: INR: No results found for requested labs within last 30 days. Warfarin Administrations (last 168 hours) None Oxygen Status: O2 Therapy for the past 12 hrs: O2 Therapy 12/18/22 0750 None (Room air) Wound Care Instructions Wound 11/30/22 ulceration to tip of right great (Active) Wound Status Evolving 12/18/22 1257 Site Assessment Dry 12/18/22 1257 Yenny-wound Assessment Dry 12/18/22 1257 Margins Undefined edges 12/17/22 1100 Closure Open to air 12/18/22 1257 Drainage Amount None 12/18/22 1257 Drainage Odor No odor 12/08/22 1000 Dressing Status Open to Air 12/18/22 1257 Dressing Betadine 12/16/22 2000 Interventions Cleansed;Other (Comment) 12/18/22 1257 Wound Length (cm) 1 cm 12/08/22 1000 Wound Width (cm) 1 cm 12/08/22 1000 Calculated Wound Size (cm^2) 1 cm^2 12/08/22 1000 Wound Image 12/08/22 1000 Wound 12/15/22 Gluteal Cleft (vertical) MASD w./ skin loss (Active) Wound Status Healed 12/18/22 1257 Site Assessment Clean;Color appropriate for ethnicity;Dry;Intact 12/18/22 1257 Yenny-wound Assessment Dry;Intact 12/18/22 1257 Margins Undefined edges 12/17/22 1100 Closure Not applicable 12/17/22 1100 Drainage Amount None 12/18/22 1257 Drainage Odor No odor 12/16/22 0812 Dressing Status Open to Air 12/18/22 1257 Dressing Open to air 12/18/22 1257 Interventions Cleansed;Other (Comment) 12/18/22 1257 Wound Image 12/15/22 1354 Other Instructions Ambulatory referral to Home Health Service Line: Home Health and Infusion Primary disciplines requested: Jail Physical Therapy Secondary disciplines requested: Occupational Therapy Home Health Services: Therapy to Eval/Tx Disease and Medication Management Labs Wound/Ostomy Care Other Comment: RESUME [facility] HOME INFUSION & [facility] HOME HEALTH NURSING, PT, OT Does the patient have a wound vac?: No Wound Information: RIGHT GREAT TOE: wound care daily as ordered and PRN for loose or soiled dressing. Daily paint with betadine and leave open to air. Therapy instructions: Caregiver training/eduction Evaluation/treatment Home safety evaluation Labs: CBC with Differential CMP CBC frequency: Once a week CMP frequency: Once a week Date to Start Labs: 12/11/2022 Infusion Services: IV Catheter Maintenance (Infusion) Infusion Therapy Labs (Infusion) IV Catheter Types: PICC Line Number of Lumens: 2 IV Catheter Dressing Change Instructions: Evaluate, manage, and change the dressing weekly IV Catheter Flush Care Instructions: Evaluate and manage the IV catheter to maintain patency Infusion Therapy: Antibiotic Therapy How many antibiotic therapies: 1 ABX Medication 1: Ceftriaxone ABX Dose 1: 2 gram ABX Route 1: IV ABX Frequency 1: q24h ABX Therapy Duration 1: thru 12/23/2022 Physician to follow patient's care (the person listed here will be responsible for signing ongoing orders): Other Comment: IV abx & labs - Dr. Krishna Rizvi, Infectious Disease O: [phone], F: [phone]; PT/OT, Wound Care - PCP [phone] Requested Start of Care Date: 24-48 hours I certify that, based on my findings, the following services are medically necessary skilled home health services: Labs Therapy to Eval/Tx Wound/Ostomy Care I certify that, based on my findings, the following services are medically necessary skilled home infusion services: IV Catheter Maintenance (Infusion) Infusion Therapy Labs (Infusion) I attest that I or another qualified licensed provider saw the patient 90 days prior to or 30 days post admission and this face to face encounter meets the necessary Home Health requirements. The face to face encounter occurred on (date): 12/09/2022 The encounter with the patient was in whole, or in part, for the following medical condition, whichis the primary reason for home health care. (List medical condition): Right great toe ulcer with osteomyelitis Clinical findings that support the need for home care: Medical condition requiring skilled assessment/education Wound requiring care, assessment, and instruction Lack of knowledge regarding medications, requires education and assessment I certify that my clinical findings support patient's homebound status. Homebound criteria met because: Requires assistance of another to leave home safely Referral/ Patient Comments: RESUME [facility] HOME INFUSION & [facility] HOME HEALTH NURSING, PT, OT Ambulatory referral to Home Health Service Line: Home Health Primary disciplines requested: Jail Physical Therapy Secondary disciplines requested: Occupational Therapy Home Health Services: Disease and Medication Management Therapy to Eval/Tx Wound/Ostomy Care Does the patient have a wound vac?: No Therapy instructions: Evaluation/treatment Home safety evaluation Requested Start of Care Date: 24-48 hours [...] face to face encounter occurred on (date): 12/13/2022 The encounter with the patient was in whole, or in part, for the following medical condition, whichis the primary reason for home health care. (List medical condition): Right great toe osteomyelitis, type 2 diabetes, CHF, chronic kidney disease, generalized weakness I certify that, based on my findings, the following services are medically necessary skilled home health services: Therapy to Eval/Tx Wound/Ostomy Care Clinical findings that support the need for home care: Medical condition requiring skilled assessment/education Frequent falls requiring safety eval/therapy I certify that my clinical findings support patient's homebound status. Homebound criteria met because: Poor endurance Shortness of breath with minimal exertion Abnormal gait/unsteady balance resulting in fall risk Ambulatory referral to Home Health Service Line: Home Health and Infusion Primary disciplines requested: Jail Physical Therapy Secondary disciplines requested: Occupational Therapy Home Health Services: Wound/Ostomy Care Disease and Medication Management Therapy to Eval/Tx IV Catheter Maintenance Labs Does the patient have a wound vac?: No Wound Information: RIGHT GREAT TOE: nurse to perform wound care daily as ordered and PRN for loose or soiled dressing. Daily paint with betadine and leave open to air Therapy instructions: Evaluation/treatment Caregiver training/eduction IV Catheter Types: PICC Line Number of Lumens: 2 IV Catheter Flush Care Instructions: Evaluate and manage the IV catheter to maintain patency IV Catheter Dressing Change Instructions: Evaluate, manage, and change the dressing weekly Labs: CBC with Differential CMP CK CBC frequency: Once a week CK frequency: Once a week CMP frequency: Once a week Date to Start Labs: 12/18/2022 Infusion Services: IV Catheter Maintenance (Infusion) Infusion Therapy Labs (Infusion) Infusion Therapy: Antibiotic Therapy How many antibiotic therapies: 1 ABX Medication 1: Daptomycin ABX Dose 1: 350 mg ABX Route 1: IV ABX Frequency 1: q48h ABX Therapy Duration 1: thru 12/23/2022 Physician to follow patient's care (the person listed here will be responsible for signing ongoing orders): Other Comment: Abx, labs, PICC management -Dr. Krishna Rizvi, Infectious Disease O: [phone], F: [phone]; PT/OT, Wound Care - PCP [phone] Requested Start of Care Date: 24-48 hours I certify that, based on my findings, the following services are medically necessary skilled home health services: IV Catheter Maintenance Labs Therapy to Eval/Tx Wound/Ostomy Care I certify that, based on my findings, the following services are medically necessary skilled home infusion services: IV Catheter Maintenance (Infusion) Infusion Therapy Labs (Infusion) I attest that I or another qualified licensed provider saw the patient 90 days prior to or 30 days post admission and this face to face encounter meets the necessary Home Health requirements. The face to face encounter occurred on (date): 12/16/2022 The encounter with the patient was in whole, or in part, for the following medical condition, whichis the primary reason for home health care. (List medical condition): Right great toe ulcer with osteomyelitis, dementia, chronic kidney disease, bilateral pleural effusion Clinical findings that support the need for home care: Medical condition requiring skilled assessment/education Frequent falls requiring safety eval/therapy I certify that my clinical findings support patient's homebound status. Homebound criteria met because: Poor endurance Shortness of breath with minimal exertion Pain with minimal activity or rest Call provider for: Temperature -Temperature greater than 101 degrees F Call provider for: difficulty breathing or chest pain Call provider for: hives Call provider for: persistent dizziness or light-headedness Call provider for: persistent nausea or vomiting Call provider for: severe uncontrolled pain Call provider for: headache, visual disturbances, weakness and speech changes Active LDAs (If Blank, None Found): Patient [...] PCV 13 03/31/2017 Pneumococcal Polysaccharide PPV23 01/20/2019 Larry Dennis MD documented in this encounter Discharge Instructions * Discharge Instr - Diet* Brittney Bronson - 12/12/2022 2:44 PM CDT Recommend to follow a consistent carbohydrate/heart healthy diet, which includes a variety of fruits, vegetables, whole-grains, low-fat dairy products, beans, lean meats, and fish. Limit foods that are high in saturated fats and sodium like desserts, fast food, fried/breaded foods, deli meats, sausage, nobles, and gravies/sauces. Aim to eat less than 2,000mg sodium per day (about 500-700 mg per meal). Eat three meals per day and eat 45-60 grams of carbohydrate at each one, do not skip meals and aim to eat meals at consistent times. Avoid sugary drinks like lemonade, regular soda, Gatorade, andsweet tea and drink water throughout the day. Call [phone] to speak with a dietitian about anydiet related concerns. Recommend to follow up with outpatient nutrition counseling, ask your doctorfor referral and call [phone] to make an appointment. Additional Resources [place] [employer]: www.diabetes.org/nutrition [place] [employer]: www.heart.org/en/healthy-living/healthy-eating documented in this encounter Medications at Time [...] mouth nightly 30 tablet 1 12/05/2022 3 amLODIPine (NORVASC) 10 mg tablet Take 1 tablet (10 mg total) by mouth nightly 30 tablet 11 12/15/2022 3 ascorbic acid 500 mg tablet,chewable Take 1 tablet/chew tab (500 mg total) by mouth 2 (two) times a day 3 aspirin 81 mg chewable tablet Take 1 tablet (81 mg total) by mouth daily 30 tablet 11 12/19/2022 3 atorvastatin (LIPITOR) 20 mg tablet Take 1 tablet (20 mg total) by mouth nightly 3 benztropine (COGENTIN) 1 mg tablet Take 1.5 tablets (1.5 mg total) by mouth nightly 45 tablet 11/13/2022 4 bisacodyL (DULCOLAX) 10 mg suppositoryIndic ations:constipat ion Insert 1 suppository (10 mg total) into the rectum daily as needed for constipation 3 bisacodyL (FLEET-BISACODYL ) 10 mg/30 mL enema Insert 30 mL (10 mg total) into the rectum daily as needed for constipation (if no results 24 hours after suppository) 3 carvediloL (COREG) 6.25 mg tablet Take 1 tablet (6.25 mg total) by mouth 2 (two) times a day with meals 60 tablet 11 12/11/2022 3 conner.stocking ,thigh,reg,med miscIndications: Peripheral edema Wear as much as possible 2 each 1 05/28/2021 4 DAPTOmycin (CUBICIN) 50 mg/mL injectionIndicat ions:Bone/Joint Infection Infuse 7.4 mL (370 mg total) into a venous catheter every other day for 7 days 100 mL 12/18/2022 3 epoetin isaiah-epbx (RETACRIT) (10,000 unit/mL) solutionIndicati ons:Anemia NOT associated with chemotherapy, radiation, or ESRD,anemia of ckd Inject 1 mL (10,000 Units total) under the skin once a week 12/05/2022 3 famotidine (PEPCID) 10 mg tablet Take 1 tablet (10 mg total) by mouth daily 3 ferrous sulfate 325 mg (65 mg of elemental iron) tabletIndication s:Iron Deficiency Anemia Take 1 tablet (325 mg total) by mouth 2 (two) times a day 60 tablet 1 12/05/2022 3 flash glucose scanning reader (FreeStyle Madhav [facility] [place]) miscIndications: Type 2 diabetes mellitus with diabetic neuropathy, with long-term current use of insulin (HCC) Use to continually monitor glucose 1 each 10/01/2021 3 flash glucose sensor (FreeStyle Madhav 2 Sensor) kitIndications:T ype 2 diabetes mellitus with diabetic neuropathy, with long-term current use of insulin (HCC) Use to continually monitor glucose, change every 14 days 6 kit 3 2022 3 furosemide (LASIX) 20 mg tablet Take 3 tablets (60 mg total) by mouth 2 (two) times a day 180 tablet 11 12/15/2022 3 insulin glargine 100 unit/mL (3 mL) [...] 12 units BG >400 = call MD 3 insulin lispro (HumaLOG, ADMELOG) 100 unit/mL pen for injection Inject 7 Units under the skin 3 (three) times a day before meals plus sliding scale 12/05/2022 3 magnesium citrate solution Take 296 mL by mouth daily as needed (for constipation if no results after enema) 3 metroNIDAZOLE (FLAGYL) 500 mg tabletIndication s:Bone/Joint Infection Take 1 tablet (500 mg total) by mouth 3 (three) times a day for 13 days 39 tablet 12/11/2022 3 multivitamin with minerals tablet Take 1 tablet by mouth daily 3 polyethylene glycol (MIRALAX) 17 gram packetIndication s:constipation Take 1 packet (17 g total) by mouth daily as needed for constipation 3 pregabalin (LYRICA) 75 mg capsule Take 1 capsule (75 mg total) by mouth nightly 30 capsule 12/05/2022 3 risperiDONE (RisperDAL) 2 mg tablet Take 1 tablet (2 mg total) by mouth nightly 30 tablet 11/13/2022 3 risperiDONE (RisperDAL) 2 mg tablet Take 1 tablet (2 mg total) by mouth 12/21/2021 3 Saccharomyces boulardii (FLORASTOR) 250 mg capsule Take 1 capsule (250 mg total) by mouth 2 (two) times a day while receiving antibiotic therapy 11/14/2022 3 vancomycin (VANCOCIN) 1,000 mg injection Continue until 12/23 100 mL 12/10/2022 3 documented as of this encounter Ordered Prescriptions Prescription Sig Dispense Quantity Refills Last Filled Start Date End Date DAPTOmycin (CUBICIN) 50 mg/mL injectionIndicati ons:Bone/Joint Infection Infuse 7.4 mL (370 mg total) into a venous catheter every other day for 7 days 100 mL 12/18/2022 3 aspirin 81 mg chewable tablet Take 1 tablet (81 mg total) by mouth daily 30 tablet 12/19/2022 3 DAPTOmycin (CUBICIN) 50 mg/mL injectionIndicati ons:Bone/Joint Infection Infuse 7.4 mL (370 mg total) into a venous catheter every other day for 7 days 100 mL 12/16/2022 3 furosemide (LASIX) 20 mg tablet Take 3 tablets (60 mg total) by mouth 2 (two) times a day 180 tablet 12/15/2022 3 amLODIPine (NORVASC) 10 mg tablet Take 1 tablet (10 mg total) by mouth nightly 30 tablet 11 12/15/2022 3 amLODIPine (NORVASC) 10 mg tablet Take 1 tablet (10 mg total) by mouth nightly 30 tablet 11 12/11/2022 3 metroNIDAZOLE (FLAGYL) 500 mg tabletIndications :Bone/Joint Infection Take 1 tablet (500 mg total) by mouth 3 (three) times a day for 13 days 39 tablet 12/11/2022 3 carvediloL (COREG) 6.25 mg tablet Take 1 tablet (6.25 mg total) by mouth 2 (two) times a day with meals 60 tablet 12/11/2022 3 vancomycin (VANCOCIN) 1,000 mg injection Continue until 12/23 100 mL 12/10/2022 3 metroNIDAZOLE (FLAGYL) 500 mg tabletIndications :Bone/Joint Infection Take 1 tablet (500 mg total) by mouth 3 (three) times a day for 13 days 39 tablet 12/10/2022 3 insulin glargine 100 unit/mL (3 mL) pen for injection Inject 15 Units under the skin nightly To start once blood sugars are consistently above 200 4.5 mL 1 12/10/2022 3 amLODIPine (NORVASC) 10 mg tablet Take 1 tablet (10 mg total) by mouth nightly 30 tablet 11 12/10/2022 3 documented in this encounter Discharge Disposition Disposition Code Departure Means Destination Comment s Discharge to home, home health skilled care Car documented in this encounter Progress Notes * Jimbo Strauss MD - 12/18/2022 5:00 PM CDT Nephrology Daily Progress CSN# [id number] SS#: [id number] Phone#: [phone] #: 1950 Subjective Chief complaint of Interval History: feels well, still some what confused, poor po intake Objective Vitals: 24hr Min/Max: Temp Min: 36.5 ??C (97.7 ??F) Max: 36.8 ??C (98.2 ??F) Pulse Min: 62 Max: 71 BP Min: 142/65 Max: 152/65 Resp Min: 18 Max: 19 SpO2 Min: 97 % Max: 98 % Intake/Output Summary (Last 24 hours) at 12/19/2022 0745 Last data filed at 12/18/2022 1313 Gross per 24 hour Intake -- Output 250 ml Net -250 ml Wt Readings from Last 3 Encounters: 12/06/22 78.9 kg (173 lb 15.1 oz) 12/05/22 79.3 kg (174 lb 12.8 oz) 11/10/22 69.5 kg (153 lb 4.8 oz) Temp Av.6 ??C (97.9 ??F) Min: 36.5 ??C (97.7 ??F) Max: 36.8 ??C (98.2 ??F) BP Min: 142/65 Max: 152/65 Pulse Av.5 Min: 62 Max: 71 Resp Av.7 Min: 18 Max: 19 SpO2 Av.7 % Min: 97 % Max: 98 % Most Recent: Vitals: 12/18/221953 BP: 152/65 Pulse: 71 Resp: 18 Temp: 36.6 ??C (97.9 ??F) SpO2: 97% I/O last 2 completed shifts: In: 480 [P.O.:480] Out: 6925 [Urine:6925] I/O this shift: In: 120 [P.O.:120] Out: 3325 [Urine:3325] No current facility-administered medications for this encounter. Current Outpatient Medications Medication acetaminophen (TYLENOL) 325 mg tablet albuterol HFA (ProAir HFA) 90 mcg/actuation inhaler amino acids-protein hydr-fiber (Pro-Stat Renal Care) 15-100 gram-kcal/30 mL liquid amLODIPine (NORVASC) 10 mg tablet amLODIPine (NORVASC) 10 mg tablet ascorbic acid 500 mg tablet,chewable aspirin 81 mg chewable tablet atorvastatin (LIPITOR) 20 mg tablet benztropine (COGENTIN) 1 mg tablet bisacodyL (DULCOLAX) 10 mg suppository bisacodyL (FLEET-BISACODYL) 10 mg/30 mL enema carvediloL (COREG) 6.25 mg tablet conner.stocking,thigh,reg,med misc DAPTOmycin (CUBICIN) 50 mg/mL injection epoetin isaiah-epbx (RETACRIT) (10,000 unit/mL) solution famotidine (PEPCID) 10 mg tablet ferrous sulfate 325 mg (65 mg of elemental iron) tablet flash glucose scanning reader (FreeStyle Madhav [facility] [place]) [facility] [place] flash glucose sensor (FreeStyle Madhav 2 Sensor) kit furosemide (LASIX) 20 mg tablet insulin glargine 100 unit/mL (3 mL) pen for injection insulin lispro (HumaLOG, ADMELOG) 100 unit/mL pen for injection insulin lispro (HumaLOG, ADMELOG) 100 unit/mL pen for injection lidocaine (ASPERCREME) 4 % adhesive patch,medicated magnesium citrate solution metroNIDAZOLE (FLAGYL) 500 mg tablet multivitamin with minerals tablet polyethylene glycol (MIRALAX) 17 gram packet pregabalin (LYRICA) 75 mg capsule risperiDONE (RisperDAL) 2 mg tablet Saccharomyces boulardii (FLORASTOR) 250 mg capsule vancomycin (VANCOCIN) 1,000 mg injection No current [facility]-ordered facility-administered medications on file. LDA: PICC Single Lumen 11/11/22 Non-tunneled Power Left Brachial;Upper arm (Active) Placement Date/Time: 11/11/22 1310 Placed by External Staff?: Other hospital Catheter Time Out Checklist Completed: Yes Hand Hygiene Performed: Yes Site Prep: Chlorhexidine Site Prep Agent has Completely Dried Before Insertion: Yes All 5 Steril... Number of days: 28 External Urinary Catheter (Active) Placement Date/Time: 12/06/22 1700 Inserted by: SWATI LAY External Catheter Type: Female External Urinary Catheter Sizes: Female- One size Number of days: 3 Vent settings: Hemodynamic parameters for last 24 hours: Physical Exam: General Appearance: Alert, cooperative, no distress, appears stated age, well developed, well nourished Head: Normocephalic, without obvious abnormality, atraumatic Eyes: PERRL, conjunctiva/corneas clear, EOM's intact, both eyes, anicteric Neck: Supple, symmetrical, trachea midline, no adenopathy; thyroid: No enlargement/tenderness/nodules; no carotid bruits, No JVD Lungs: Clear to auscultation bilaterally, respirations unlabored Cardiovascular: Regular rate and rhythm, S1 and S2 normal, no murmur, rub or gallop Abdomen: Soft, non-tender, bowel sounds active all four quadrants, non-distended Extremities: Extremities normal, no LE edema Skin: Skin color, texture, turgor normal, no rashes, lesions or bruising Neurologic: Alert & oriented person, + tremor Psychosocial: flat Dialysis Access Exam: Lab/Radiology/Diagnostic Review: Recent Labs Lab Units 12/18/22204912/18/22 0749 12/18/22 0551 12/17/22 0718 12/17/22 0602 12/16/22 0727 12/16/22 0525 SODIUM mmol/L -- -- 140 -- 142 -- 141 POTASSIUM PLASMA mmol/L -- -- 4.1 -- 4.4 -- 4.4 CHLORIDE mmol/L -- -- 104 -- 107 -- 107 CO2 mmol/L -- -- 21* -- 24 -- 23 BUN SERUM mg/dL -- -- 61* -- 53* -- 52* CREATININE mg/dL -- -- 2.37* -- 2.26* -- 2.44* [id number] mL/min/1.73 m2 -- -- 21 -- 22 -- 21 GLUCOSE mg/dL -- -- 152 -- 202* -- 140 POC GLUCOSE MONITOR mg/dL 305* < > -- < > -- < > -- CALCIUM mg/dL -- -- 9.5 -- 9.3 -- 9.2 ALBUMIN g/dL -- -- 2.5* -- 2.7* -- 2.9* PHOSPHORUS PLASMA mg/dL -- -- 4.9* -- 4.8* -- 4.1 < > = values in this interval not displayed. Additional Labs: Recent Labs Lab Units 12/18/22 0551 12/17/22 0602 12/16/22 0525 WBC K/cumm 10.9* 10.7* 11.0* HEMOGLOBIN g/dL 9.6* 8.8* 8.2* HEMATOCRIT % 30.6* 28.5* 27.0* PLATELETS K/cumm 316 314 303 NEUTROS PCT % 58.6 59.7 66.2 LYMPHS PCT % 29.1 27.8 23.2 MONOS PCT % 8.9 9.1 7.9 EOS PCT % 2.4 2.5 1.9 Assessment/Plan CKD: stage 3b, due to dm, htn. Expect some rise due to diuresis. As off 12/12/2022 still has lots of edema. Will need on going diuresis. This will lead to increase in BUN and creatinine As off 12/17/2022 keep on current dose of diuretics. At some point creatinine might go up at that time decrease dose of diuretics HTN: adequately controlled Edema: mostly LE some combination of CKD, pulmonary HTN, on going diuresis. Will add metolazone to regimen As off 12/11/2022 still has edema, with diuresis expect some rise in creatinine As of 12/12/2022 has LE edema, still needs on going diuresis As off 12/17/2022 has improved edema Anemia: combination of CKD, possible iron deficiency Dyspnea: due to volume overload. improved Hyperkalemia: mild. better 7. Tremors: possible related to parkinson. May benefit form neurology consult. As off 12/16/2022 tremors are better 8. Metabolic acidosis: suspect renal failure related DICTATION DISCLAIMER: This note is transcribed using the Ep[employer] direct voice recognition system without human x ray tech. In an effort to expedite patient care, this note has not been adjusted for typographical, grammatical, and syntax by a trained medical instrument technician. Portions of this note have been copied from the medical record, but edited appropriately to accurately reflect the patient's current clinical state. Jimbo Strauss Office/exchange: [phone] Pager: [phone] * Terrance Reese NP - 12/18/2022 11:50 AM CDT Images from the original note were not included. Infectious Disease Progress Note Sixto Chakraborty Admit Date: 12/06/2022 LOS: 12 Days Consulting physician:Bev Adames MD Reason for consult: osteomyelitis Subjective: Afebrile. No leukocytosis. Pt is on room air. Up in chair. Appetite is good. ROS: Denies N/V/D/SOB/cough/rashes Anti-infectives (From admission, onward) Start Dose/Rate Route Frequency Ordered Stop 12/16/22 1400 DAPTOmycin (CUBICIN) 50 mg/mL sodium chloride 0.9% 350 mg 6 mg/kg ?? 61.6 kg (Adjusted) 210 mL/hr over 2 Minutes intravenous Every 48 hours 12/16/22 1316 12/16/22 0000 DAPTOmycin (CUBICIN) 50 mg/mL injection 6 mg/kg ?? 61.6 kg (Adjusted) intravenous Every 48 hours 12/16/22 1422 12/23/22 2359 12/11/22 0000 metroNIDAZOLE (FLAGYL) 500 mg tablet 500 mg oral 3 times daily 12/11/22 1117 12/24/22 2359 12/10/22 0000 vancomycin (VANCOCIN) 1,000 mg injection 12/10/22 1422 12/23/22 2359 12/08/22 1715 metroNIDAZOLE (FLAGYL) tablet 500 mg 500 mg oral 3 times daily 12/08/22 1630 Data Vitals: 12/18/22 0000 12/18/22 0330 12/18/22 0400 12/18/22 0700 BP: 142/65 137/68 BP Location: Right arm Right arm Patient Position: Lying Pulse: 67 70 71 68 Resp: 18 18 Temp: 36.7 ??C (98.1 ??F) 36.8 ??C (98.2 ??F) TempSrc: Oral Oral SpO2: 98% 94% Weight: Height: Temp (24hrs), Av.8 ??C (98.3 ??F), Min:36.7 ??C (98.1 ??F), Max:37.2 ??C (98.9 ??F) Recent Labs Lab Units 12/18/22 0551 12/17/22 0602 12/16/22 0525 WBC K/cumm 10.9* 10.7* 11.0* HEMOGLOBIN g/dL 9.6* 8.8* 8.2* HEMATOCRIT % 30.6* 28.5* 27.0* PLATELETS K/cumm 316 314 303 Recent Labs Lab Units 12/18/22 0551 12/17/22 0602 12/16/22 0525 BUN SERUM mg/dL 61* 53* 52* CREATININE mg/dL 2.37* 2.26* 2.44* Scheduled Meds:aspirin, 81 mg, oral, Daily atorvastatin, 20 mg, oral, Nightly benztropine, 1.5 mg, oral, Nightly carvediloL, 6.25 mg, oral, BID with meals (bkfst, dinner) DAPTOmycin, 6 mg/kg (Adjusted), intravenous, Q48H famotidine, 10 mg, oral, Daily ferric gluconate, 125 mg of elemental iron, intravenous, Once per day on Thu ferrous sulfate, 65 mg of elemental iron, oral, Daily with breakfast furosemide, 60 mg, oral, BID DIURETIC heparin, 5,000 Units, subcutaneous, Q8H SOL insulin glargine, 15 Units, subcutaneous, Nightly insulin lispro, 0-4 Units, subcutaneous, Nightly insulin lispro, 0-5 Units, subcutaneous, TID with meals insulin lispro, 7 Units, subcutaneous, TID with meals metroNIDAZOLE, 500 mg, oral, TID pregabalin, 75 mg, oral, Nightly risperiDONE, 2 mg, oral, Nightly Continuous Infusions: PRN Meds:. albuterol HFA dextrose OR dextrose glucagon ondansetron polyethylene glycol Objective: Most Recent : Vitals Vitals: 12/07/22 0000 12/07/22 0400 12/07/22 0827 12/07/22 1146 BP: 126/76 123/72 119/74 141/66 BP Location: Right arm Right arm Right arm Right arm Patient Position: Lying Lying Lying Lying Pulse: 90 69 75 70 Resp: Temp: 37 ??C (98.6 ??F) 36.4 ??C (97.6 ??F) 36.8 ??C (98.3 ??F) 36.7 ??C (98.1 ??F) TempSrc: Axillary Axillary Oral Oral SpO2: 90% 92% 92% 98% Weight: Height: Physical Exam: General appearance: alert, cooperative, no distress HEENT: (-)icterus, Oropharnyx is normal, NCAT Neck: No palpable LN Lungs: Course breath sounds and symmetric; minimal respiratory effort, no r/w/c Heart: regular rhythm, normal S1 and S2, no m/r/g Abdomen: soft without mass, non-tender, +bowel sounds, no HSM Skin: (-)new rashes, right great toe with dry gangrene. No drainage. Minimal erythema around the toe. MSK: no gross deformities, FROM Vascular: no Edema, Neuro: No focal deficits Psych: Appropriate mood and affect Impression: 1 x 1 cm ulceration to Tip of right great toe, dry wound bed, no odor, no drainage Lab/Radiology/Diagnostic Review: 12/07 chest x-ray FINDINGS: There is a tiny right effusion. The remainder of the lungs are clear. Heart not enlarged. Aortic atherosclerosis. No failure. The tip of a left PICC line is in the distal superior vena cava. Cultures 12/12 wound cultures right great toe MRSA 12/11 urine cx: ng 12/11 bld cx: neg 11/08 right toe culture with MRSA and mixed Gram-positive organisms Respiratory PCR negative 11/30 urine culture with clinically insignificant MRI Foot Right WO Contrast Result Date: 11/10/2022 There is soft tissue swelling involving the right great toe with a distal wound. There is are smallsites of erosion involving the great toe distal tuft with associated marrow edema extending into the distal phalanx base. No drainable fluid collection. There has been prior application of the 4th digit through the metatarsal neck. There is subcutaneous edema about the ankle and along the dorsum ofthe foot. Mild first metatarsophalangeal joint chondrosis. There is subacute on chronic denervationof intrinsic foot musculature. There is tendinopathy of the distal Achilles tendon. Impression: 1. Distal right great toe wound with osteomyelitis of the distal phalanx and small erosions of the distal tuft. Assessment: 1. Acute respiratory failure possibly secondary to CHF no clear-cut evidence of pneumonia 2. Right great toe ulcer with osteomyelitis patient is supposed to be on vanc and Flagyl through 12/23 3. Dementia 4. Acute kidney injury, improved 5. CHF/diabetes mellitus/schizophrenia 6. Bilateral pleural effusions Plan: Continue daptomycin 6 mg/kg q.48h due to ease of administration and less monitoring and Flagyl to 12/23, Discuss with Nephrology about the vancomycin and renal insufficiency, Nephrology thinks it is related to diuretics and not vancomycin induced and recommended to continue 4. CBC, CMP, CK level weekly faxed to [phone] 5. Okay to DC from ID perspective Cosigned by En Chaudhary MD at 03/01/2023 11:09 AM CDT * Hui Bazan PTA - 12/18/2022 11:34 AM CDT Physical Therapy PT PROGRESS NOTE PATIENT'S NAME:Sixto Chakraborty :1950 AGE:72 y.o. ROOM:[place] [id number] Past Medical History: Diagnosis Date Arthritis CHF (congestive heart failure) (CMS/HCC) (HCC) Dementia (HCC) Depression Diabetic neuropathy (HCC) Hyperlipidemia Hypertension Movement disorder Osteomyelitis (HCC) Renal disorder Schizophrenia (HCC) Type 2 diabetes mellitus (HCC) Past Surgical History: Procedure Laterality Date SECTION Right right foot TOE AMPUTATION Right 01/06/2020 4th toe amp/ foot debridement/ Dr. Anat Pelayo Patient Active Problem List Diagnosis Schizoaffective disorder, bipolar type ([facility]) ([facility]) Diabetic neuropathy ([facility]) Type 2 diabetes mellitus with diabetic neuropathy, with long-term current use of insulin ([facility]) ([facility]) Hypertension associated with diabetes ([facility]) Amputation of toe of right foot ([facility]) ([facility]) Iron deficiency anemia Gastroesophageal reflux disease Hyperlipidemia associated with type 2 diabetes mellitus ([facility]) Dementia ([facility]) Schizoaffective disorder, bipolar type ([facility]) ([facility]) 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 2 diabetes mellitus ([facility]) ([facility]) Encounter for Medicare annual wellness exam Late onset Alzheimer's dementia without behavioral disturbance ([facility]) Volume overload Anemia Toe necrosis ([facility]) ([facility]) Physical deconditioning Left leg DVT ([facility]) ([facility]) Pulmonary nodule Retention of urine, unspecified Unspecified osteoarthritis, unspecified site Unsteadiness on feet Weakness Parkinsonism ([facility]) Wheezing Anemia in stage 4 chronic kidney disease ([facility]) Osteomyelitis of great toe of right foot ([facility]) ([facility]) Abnormal urinalysis Cellulitis of great toe of right foot BRENDA (acute kidney injury) ([facility]) ([facility]) Acute on chronic diastolic congestive heart failure ([facility]) ([facility]) Bibasilar consolidations Movement disorder Shortness of breath TIME IN: 1134 TIME OUT: 1213 SUBJECTIVE Patient agrees to participate in PT session. MENTAL STATUS/ORIENTATION: awake, alert. PAIN: Pre-therapy pain level: 1/10 Pain location: headache Pain intervention: none needed Post-therapy pain level/response to intervention: unchanged OBJECTIVE PRECAUTIONS: fall, contact isolation for MRSA APPEARANCE/POSTURE: female patient semi-reclining in bed with joy catheter, alarm in place. VITAL SIGNS: Resting heart rate: 66 BPM Post-activity heart rate: ` Resting O2 sat: 97% on room air Post-activity O2 sat: - MOBILITY DOCUMENTATION: Bed Mobility/Transfers: supine to sit with HOB partially raised with mod/max assist of 1. Scoot sit to EOB with CGA initially, making minimal progress with maximal effort, requiring max assist to complete. Scoot back in chair dependent assist. Sit to stand with w/w with mod assist. Stand to sit with min assist + vc's for safety. Bed to recliner with w/w with mod assist for balance/stability and to move w/w, patient taking verysmall, shuffling steps to turn toward chair. Gait: not appropriate this date. APPEARANCE/POSTURE (end of session): seated in recliner with joy catheter, LE's elevated, alarm in place and activated, call light in reach. EDUCATION:bed mobility , functional transfer training, safety , and positioning RESPONSE TO EDUCATION: needs reinforcement ASSESSMENT Activity tolerance/response to P.T.: patient requires extra time to initiate vc's for mobility; poor motor planning, requiring step by step vc's/tactile cues; requires mod/max assist for supine to sit, and mod assist for bed to chair with w/w. Barriers to learning: Physical and Cognitive Barriers to discharge: Limited family support, Limited safety awareness, Limited insight into deficits, Decreased endurance, Lower extremity weakness, and Long standing deficits Patient continues progressing toward previously set goals which remain appropriate at this time. PLAN PT Discharge Recommendations this date: PT Recommendation/Plan: Home Health PT, Home with 24 hour supervision PT Frequency during current admission: 3-5x/wk Refer to multi-disciplinary care plan section for PT specific goals. If this is the last note, please consider this the discharge summary. Cosigned by Bronson Marino, PT at 12/18/2022 3:36 PM CDT * Isidor Hahn MD - 12/18/2022 8:20 AM CDT [facility] - Cardiology [facility] Progress Note Admit Date: 12/06/2022 2:04 PM @[facility]@ PCP: Cherelle Corcoran MD Patient seen and examined Chart , telemtry reviewed Symptoms Patient denies chest pain, dyspnea, palpitations, sweating or syncope. Complains of weakness and generalized headache Data Vitals: 12/17/22 2333 12/18/22 0000 12/18/22 0330 12/18/22 0400 BP: 149/69 142/65 BP Location: Right arm Right arm Patient Position: Pulse: 69 67 70 71 Resp: 18 18 Temp: 37.2 ??C (98.9 ??F) 36.7 ??C (98.1 ??F) TempSrc: Axillary Oral SpO2: 92% 98% Weight: Height: Intake/Output Summary (Last 24 hours) at 12/18/2022 0820 Last data filed at 12/18/2022 0610 Gross per 24 hour Intake 120 ml Output 3075 ml Net -2955 ml Lab Results Component Value Date WBC 10.9 (H) 12/18/2022 WBC 10.7 (H) 12/17/2022 WBC 11.0 (H) 12/16/2022 HGB 9.6 (L) 12/18/2022 HGB 8.8 (L) 12/17/2022 HGB 8.2 (L) 12/16/2022 HCT 30.6 (L) 12/18/2022 HCT 28.5 (L) 12/17/2022 HCT 27.0 (L) 12/16/2022 Lab Results Component Value Date SODIUM 140 12/18/2022 SODIUM 142 12/17/2022 SODIUM 141 12/16/2022 POTASSIUM 4.1 12/18/2022 POTASSIUM 4.4 12/17/2022 POTASSIUM 4.4 12/16/2022 CHLORIDE 104 12/18/2022 CHLORIDE 107 12/17/2022 CHLORIDE 107 12/16/2022 CO2 21 (L) 12/18/2022 CO2 24 12/17/2022 CO2 23 12/16/2022 CREATININE 2.37 (H) 12/18/2022 CREATININE 2.26 (H) 12/17/2022 CREATININE 2.44 (H) 12/16/2022 GLUCOSE 133 12/18/2022 GLUCOSE 152 12/18/2022 GLUCOSE 206 (H) 12/17/2022 GLUCOSE 225 (H) 12/17/2022 GLUCOSE 202 (H) 12/17/2022 GLUCOSE 140 12/16/2022 CALCIUM 9.5 12/18/2022 CALCIUM 9.3 12/17/2022 CALCIUM 9.2 12/16/2022 No results found for: PTT No results found for: PT No results found for: INR No results found for: BNP No components found for: TROPONIN No results found for: CHOL, TRIG, HDL, LDLCALC Lab Results Component Value Date ALBUMIN 2.5 (L) 12/18/2022 ALBUMIN 2.7 (L) 12/17/2022 ALBUMIN 2.9 (L) 12/16/2022 No components found for: MAGMGDL No results found for: TSH No results found for: T3FREE No results found for: [id number] Pain Assessment: No/denies pain Meds MEDICATIONS FOR CURRENT ENCOUNTER: SCHEDULED MEDICATIONS: Scheduled Medications Medication Dose Route Frequency atorvastatin (LIPITOR) tablet 20 mg 20 mg oral Nightly benztropine (COGENTIN) tablet 1.5 mg 1.5 mg oral Nightly carvediloL (COREG) tablet 6.25 mg 6.25 mg oral BID with meals (bkfst, dinner) DAPTOmycin (CUBICIN) 50 mg/mL sodium chloride 0.9% 350 mg 6 mg/kg (Adjusted) intravenous Q48H famotidine (PEPCID) tablet 10 mg 10 mg oral Daily ferric gluconate (FERRLECIT) 125 mg of elemental iron in sodium chloride 0.9% 100 mL IVPB 125 mg ofelemental iron intravenous Once per day on Thu ferrous sulfate delayed release tablet 65 mg of elemental iron 65 mg of elemental iron oral Daily with breakfast furosemide (LASIX) tablet 60 mg 60 mg oral BID DIURETIC heparin 5,000 unit/mL injection 5,000 Units 5,000 Units subcutaneous Q8H SOL insulin glargine (LANTUS, SEMGLEE) 100 unit/mL injection 15 Units 15 Units subcutaneous Nightly insulin lispro (HumaLOG, ADMELOG) 100 unit/mL injection 0-4 Units 0-4 Units subcutaneous Nightly insulin lispro (HumaLOG, ADMELOG) 100 unit/mL injection 0-5 Units 0-5 Units subcutaneous TID with meals insulin lispro (HumaLOG, ADMELOG) 100 unit/mL injection 7 Units 7 Units subcutaneous TID with meals metroNIDAZOLE (FLAGYL) tablet 500 mg 500 mg oral TID pregabalin (LYRICA) capsule 75 mg 75 mg oral Nightly risperiDONE (RisperDAL) tablet 2 mg 2 mg oral Nightly CONTINUOUS MEDICATIONS: Continuous Medications Medication Dose Last Rate PRN MEDICATIONS: PRN Medications Medication Dose Route Frequency Last Admin albuterol HFA (PROVENTIL HFA,VENTOLIN HFA,PROAIR HFA) 90 mcg/actuation inhaler 2 puff 2 puff inhalation Q4H PRN (RT) dextrose oral liquid liquid 15 g 15 g oral Q15 Min PRN 15 g at 12/11/22 1710 Or dextrose (D10W) 10% bolus 250 mL 250 mL intravenous Q15 Min PRN glucagon injection 1 mg 1 mg intramuscular Q30 Min PRN ondansetron (ZOFRAN) injection 4 mg 4 mg intravenous Q6H PRN 4 mg at 12/12/222036 polyethylene glycol (MIRALAX) packet 17 g 17 g oral Daily PRN No Known Allergies Review of Systems: All systems were reviewed. Pertinent positives are mentioned above. Exam General appearance: alert, cooperative, no distress Neck: No JVD. No carotid Bruit Chest: Decreased air entry bilaterally,No added sounds Cardiovascular: regular rate, rhythm, normal S1 and S2, without rub, gallops PSM 2/6 Abdomen: soft without mass, non-tender, with normal bowel sounds Extremities: no clubbing, cyanosis 1+ edema. Assessment /Plan Acute on chronic diastolic heart failure - normal LV function , Nephro managing diuretics 3L negative overnight CKD contributing to volume overload - with acute on chronic kidney disease - managed by Nephrology Elevated troponin due to renal dysfunction - does not represent ACS - nonischemic MPI recently Essential hypertension -BP stable Diabetes mellitus type -Manage per primary Right great toe ulcer with osteomyelitis - on antibiotic therapy as per Infectious Disease - normal TEO and TBI Iron deficiency anemia status post IV iron infusions - hemoglobin 9.6 today -improving -Monitor H&H closely Resuming low-dose aspirin Hyperlipidemia. On statins Isidro Hahn MD * Jimbo Strauss MD - 12/17/2022 5:00 PM CDT Nephrology Daily Progress [facility]# [id number] #: [id number] Phone#: [phone] #: 1950 Subjective Chief complaint of Interval History: feels well, still some what confused, poor po intake Objective Vitals: 24hr Min/Max: Temp Min: 36.6 ??C (97.9 ??F) Max: 37.2 ??C (98.9 ??F) Pulse Min: 62 Max: 70 BP Min: 119/67 Max: 149/69 Resp Min: 16 Max: 18 SpO2 Min: 92 % Max: 98 % Intake/Output Summary (Last 24 hours) at 12/18/2022 0617 Last data filed at 12/18/2022 0610 Gross per 24 hour Intake 120 ml Output 3075 ml Net -2955 ml Wt Readings from Last 3 Encounters: 12/06/22 78.9 kg (173 lb 15.1 oz) 12/05/22 79.3 kg (174 lb 12.8 oz) 11/10/22 69.5 kg (153 lb 4.8 oz) Temp Av.8 ??C (98.2 ??F) Min: 36.6 ??C (97.9 ??F) Max: 37.2 ??C (98.9 ??F) BP Min: 119/67 Max: 149/69 Pulse Av.5 Min: 62 Max: 70 Resp Av.7 Min: 16 Max: 18 SpO2 Av.2 % Min: 92 % Max: 98 % Most Recent: Vitals: 12/18/22 0330 BP: 142/65 Pulse: 70 Resp: 18 Temp: 36.7 ??C (98.1 ??F) SpO2: 98% I/O last 2 completed shifts: In: 120 [P.O.:120] Out: 3375 [Urine:3375] I/O this shift: In: - Out: 1999 [Urine:1999] Current Facility-Administered Medications Medication Dose Route Frequency Last Rate Last Admin albuterol HFA (PROVENTIL HFA,VENTOLIN HFA,PROAIR HFA) 90 mcg/actuation inhaler 2 puff 2 puff inhalation Q4H PRN (RT) atorvastatin (LIPITOR) tablet 20 mg 20 mg oral Nightly 20 mg at 12/17/222058 benztropine (COGENTIN) tablet 1.5 mg 1.5 mg oral Nightly 1.5 mg at 12/17/222057 carvediloL (COREG) tablet 6.25 mg 6.25 mg oral BID with meals (bkfst, dinner) 6.25 mg at 12/17/22 172 DAPTOmycin (CUBICIN) 50 mg/mL sodium chloride 0.9% 350 mg 6 mg/kg (Adjusted) intravenous Q48H 350 mg at 12/16/22 1549 dextrose oral liquid liquid 15 g 15 g oral Q15 Min PRN 15 g at 12/11/22 1710 Or dextrose (D10W) 10% bolus 250 mL 250 mL intravenous Q15 Min PRN famotidine (PEPCID) tablet 10 mg 10 mg oral Daily 10 mg at 12/17/22 0952 ferric gluconate (FERRLECIT) 125 mg of elemental iron in sodium chloride 0.9% 100 mL IVPB 125 mg ofelemental iron intravenous Once per day on Thu 110 mL/hr at 12/17/22 1013 125 mg of elemental iron at 12/17/22 101 ferrous sulfate delayed release tablet 65 mg of elemental iron 65 mg of elemental iron oral Daily with breakfast 65 mg of elemental iron at 12/17/22 0953 furosemide (LASIX) tablet 60 mg 60 mg oral BID DIURETIC 60 mg at 12/17/22 172 glucagon injection 1 mg 1 mg intramuscular Q30 Min PRN heparin 5,000 unit/mL injection 5,000 Units 5,000 Units subcutaneous Q8H SOL 5,000 Units at 12/17/222058 insulin glargine (LANTUS, SEMGLEE) 100 unit/mL injection 15 Units 15 Units subcutaneous Nightly 15 Units at 12/17/222099 insulin lispro (HumaLOG, ADMELOG) 100 unit/mL injection 0-4 Units 0-4 Units subcutaneous Nightly 1 Units at 12/17/222099 insulin lispro (HumaLOG, ADMELOG) 100 unit/mL injection 0-5 Units 0-5 Units subcutaneous TID with meals 2 Units at 12/17/221722 insulin lispro (HumaLOG, ADMELOG) 100 unit/mL injection 7 Units 7 Units subcutaneous TID with meals7 Units at 12/17/221723 metroNIDAZOLE (FLAGYL) tablet 500 mg 500 mg oral TID 500 mg at 12/17/222057 ondansetron (ZOFRAN) injection 4 mg 4 mg intravenous Q6H PRN 4 mg at 12/12/222036 polyethylene glycol (MIRALAX) packet 17 g 17 g oral Daily PRN pregabalin (LYRICA) capsule 75 mg 75 mg oral Nightly 75 mg at 12/17/222057 risperiDONE (RisperDAL) tablet 2 mg 2 mg oral Nightly 2 mg at 12/17/222057 Continuous Medications Medication Dose Last Rate LDA: PICC Single Lumen 11/11/22 Non-tunneled Power Left Brachial;Upper arm (Active) Placement Date/Time: 11/11/22 1310 Placed by External Staff?: Other hospital Catheter Time Out Checklist Completed: Yes Hand Hygiene Performed: Yes Site Prep: Chlorhexidine Site Prep Agent has Completely Dried Before Insertion: Yes All 5 Steril... Number of days: 28 External Urinary Catheter (Active) Placement Date/Time: 12/06/22 1700 Inserted by: SWATI LAY External Catheter Type: Female External Urinary Catheter Sizes: Female- One size Number of days: 3 Vent settings: Hemodynamic parameters for last 24 hours: Physical Exam: General Appearance: Alert, cooperative, no distress, appears stated age, well developed, well nourished Head: Normocephalic, without obvious abnormality, atraumatic Eyes: PERRL, conjunctiva/corneas clear, EOM's intact, both eyes, anicteric Neck: Supple, symmetrical, trachea midline, no adenopathy; thyroid: No enlargement/tenderness/nodules; no carotid bruits, No JVD Lungs: Clear to auscultation bilaterally, respirations unlabored Cardiovascular: Regular rate and rhythm, S1 and S2 normal, no murmur, rub or gallop Abdomen: Soft, non-tender, bowel sounds active all four quadrants, non-distended Extremities: Extremities normal, no LE edema Skin: Skin color, texture, turgor normal, no rashes, lesions or bruising Neurologic: Alert & oriented person, + tremor Psychosocial: flat Dialysis Access Exam: Lab/Radiology/Diagnostic Review: Recent Labs Lab Units 12/17/22205012/17/22 0718 12/17/22 0602 12/16/22 0727 12/16/22 0525 12/15/22 0751 12/15/22 0553 SODIUM mmol/L -- -- 142 -- 141 -- 144 POTASSIUM PLASMA mmol/L -- -- 4.4 -- 4.4 -- 4.1 CHLORIDE mmol/L -- -- 107 -- 107 -- 112* CO2 mmol/L -- -- 24 -- 23 -- 22 BUN SERUM mg/dL -- -- 53* -- 52* -- 53* CREATININE mg/dL -- -- 2.26* -- 2.44* -- 2.51* [id number] mL/min/1.73 m2 -- -- 22 -- 21 -- 20 GLUCOSE mg/dL -- -- 202* -- 140 -- 130 POC GLUCOSE MONITOR mg/dL 206* < > -- < > -- < > -- CALCIUM mg/dL -- -- 9.3 -- 9.2 -- 9.1 ALBUMIN g/dL -- -- 2.7* -- 2.9* -- 2.8* PHOSPHORUS PLASMA mg/dL -- -- 4.8* -- 4.1 -- 4.2 < > = values in this interval not displayed. Additional Labs: Recent Labs Lab Units 12/18/22 0551 12/17/22 0602 12/16/22 0525 WBC K/cumm 10.9* 10.7* 11.0* HEMOGLOBIN g/dL 9.6* 8.8* 8.2* HEMATOCRIT % 30.6* 28.5* 27.0* PLATELETS K/cumm 316 314 303 NEUTROS PCT % 58.6 59.7 66.2 LYMPHS PCT % 29.1 27.8 23.2 MONOS PCT % 8.9 9.1 7.9 EOS PCT % 2.4 2.5 1.9 Assessment/Plan CKD: stage 3b, due to dm, htn. Expect some rise due to diuresis. As off 12/12/2022 still has lots of edema. Will need on going diuresis. This will lead to increase in BUN and creatinine As off 12/17/2022 keep on current dose of diuretics. At some point creatinine might go up at that time decrease dose of diuretics HTN: adequately controlled Edema: mostly LE some combination of CKD, pulmonary HTN, on going diuresis. Will add metolazone to regimen As off 12/11/2022 still has edema, with diuresis expect some rise in creatinine As of 12/12/2022 has LE edema, still needs on going diuresis As off 12/17/2022 has improved edema Anemia: combination of CKD, possible iron deficiency Dyspnea: due to volume overload. improved Hyperkalemia: mild. better 7. Tremors: possible related to parkinson. May benefit form neurology consult. As off 12/16/2022 tremors are better 8. Metabolic acidosis: suspect renal failure related DICTATION DISCLAIMER: This note is transcribed using the Epoxy direct voice recognition system without human x ray tech. In an effort to expedite patient care, this note has not been adjusted for typographical, grammatical, and syntax by a trained medical instrument technician. Portions of this note have been copied from the medical record, but edited appropriately to accurately reflect the patient's current clinical state. Jimbo Strauss Office/exchange: [phone] Pager: [phone] * En Chaudhary MD - 12/17/2022 4:19 PM CDT Images from the original note were not included. Infectious Disease Progress Note Sixto Nadine Chakraborty Admit Date: 12/06/2022 LOS: 11 Days Consulting physician:Bev Adames MD Reason for consult: osteomyelitis Subjective: Afebrile. No leukocytosis. Pt is on room air. Asleep. More alert and fed herself breakfast today. ROS: UTO ROS, asleep Anti-infectives (From admission, onward) Start Dose/Rate Route Frequency Ordered Stop 12/16/22 1400 DAPTOmycin (CUBICIN) 50 mg/mL sodium chloride 0.9% 350 mg 6 mg/kg ?? 61.6 kg (Adjusted) 210 mL/hr over 2 Minutes intravenous Every 48 hours 12/16/22 1316 12/16/22 0000 DAPTOmycin (CUBICIN) 50 mg/mL injection 6 mg/kg ?? 61.6 kg (Adjusted) intravenous Every 48 hours 12/16/22 1422 12/23/22 2359 12/11/22 0000 metroNIDAZOLE (FLAGYL) 500 mg tablet 500 mg oral 3 times daily 12/11/22 1117 12/24/22 2359 12/10/22 0000 vancomycin (VANCOCIN) 1,000 mg injection 12/10/22 1422 12/23/22 2359 12/08/22 1715 metroNIDAZOLE (FLAGYL) tablet 500 mg 500 mg oral 3 times daily 12/08/22 1630 Data Vitals: 12/17/22 0730 12/17/22 0900 12/17/22 1100 12/17/22 1136 BP: 132/51 137/46 BP Location: Left arm Right arm Patient Position: Lying Lying Pulse: 65 64 62 70 Resp: 16 18 Temp: 36.6 ??C (97.9 ??F) 36.7 ??C (98.1 ??F) TempSrc: Axillary Axillary SpO2: 95% 98% Weight: Height: Temp (24hrs), Av.7 ??C (98.1 ??F), Min:36.3 ??C (97.4 ??F), Max:36.9 ??C (98.4 ??F) Recent Labs Lab Units 12/17/22 0602 12/16/22 0525 12/15/22 0552 WBC K/cumm 10.7* 11.0* 10.4* HEMOGLOBIN g/dL 8.8* 8.2* 7.8* HEMATOCRIT % 28.5* 27.0* 25.7* PLATELETS K/cumm 314 303 303 Recent Labs Lab Units 12/17/22 0602 12/16/22 0525 12/15/22 0553 BUN SERUM mg/dL 53* 52* 53* CREATININE mg/dL 2.26* 2.44* 2.51* Scheduled Meds:atorvastatin, 20 mg, oral, Nightly benztropine, 1.5 mg, oral, Nightly carvediloL, 6.25 mg, oral, BID with meals (bkfst, dinner) DAPTOmycin, 6 mg/kg (Adjusted), intravenous, Q48H famotidine, 10 mg, oral, Daily ferric gluconate, 125 mg of elemental iron, intravenous, Once per day on Thu ferrous sulfate, 65 mg of elemental iron, oral, Daily with breakfast furosemide, 60 mg, oral, BID DIURETIC heparin, 5,000 Units, subcutaneous, Q8H SOL insulin glargine, 15 Units, subcutaneous, Nightly insulin lispro, 0-4 Units, subcutaneous, Nightly insulin lispro, 0-5 Units, subcutaneous, TID with meals insulin lispro, 7 Units, subcutaneous, TID with meals metroNIDAZOLE, 500 mg, oral, TID pregabalin, 75 mg, oral, Nightly risperiDONE, 2 mg, oral, Nightly Continuous Infusions: PRN Meds:. albuterol HFA dextrose OR dextrose glucagon ondansetron polyethylene glycol Review of Systems: Gen: denies fevers, denies chills, denies sweats, denies unintentional weight loss HEENT: Denies sore throat, denies thrush Neck: Denies palpable lymph nodes, denies neck stiffness Cv: denies chest pain, denies palpitations Resp: Denies SOB, Denies orthopnea Gi: Denies abdominal pain, Denies diarrhea, denies n/v Extrem: Denies gross deformities, denies joint pain, denies myalgias Skin: Denies rashes, denies lesions Neuro: Denies weakness, denies paresthesias, denies memory loss Psych: denies depression, denies anxiety Objective: Vitals: 24hr Min/Max: Temp Min: 36.2 ??C (97.2 ??F) Max: 37 ??C (98.6 ??F) Pulse Min: 66 Max: 90 BP Min: 119/74 Max: 142/53 Resp Min: 12 Max: 22 SpO2 Min: 90 % Max: 99 % Most Recent : Vitals Vitals: 12/07/22 0000 12/07/22 0400 12/07/22 0827 12/07/22 1146 BP: 126/76 123/72 119/74 141/66 BP Location: Right arm Right arm Right arm Right arm Patient Position: Lying Lying Lying Lying Pulse: 90 69 75 70 Resp: Temp: 37 ??C (98.6 ??F) 36.4 ??C (97.6 ??F) 36.8 ??C (98.3 ??F) 36.7 ??C (98.1 ??F) TempSrc: Axillary Axillary Oral Oral SpO2: 90% 92% 92% 98% Weight: Height: Physical Exam: General appearance: alert, cooperative, no distress HEENT: (-)icterus, Oropharnyx is normal, NCAT Neck: No palpable LN Lungs: Course breath sounds and symmetric; minimal respiratory effort, no r/w/c Heart: regular rhythm, normal S1 and S2, no m/r/g Abdomen: soft without mass, non-tender, +bowel sounds, no HSM Skin: (-)new rashes, right great toe with dry gangrene. No drainage. Minimal erythema around the toe. MSK: no gross deformities, FROM Vascular: no Edema, Neuro: No focal deficits Psych: Appropriate mood and affect Impression: 1 x 1 cm ulceration to Tip of right great toe, dry wound bed, no odor, no drainage Lab/Radiology/Diagnostic Review: 12/07 chest x-ray FINDINGS: There is a tiny right effusion. The remainder of the lungs are clear. Heart not enlarged. Aortic atherosclerosis. No failure. The tip of a left PICC line is in the distal superior vena cava. Cultures 12/12 wound cultures right great toe Staph aureus 11/08 right toe culture with MRSA and mixed Gram-positive organisms Respiratory PCR negative 11/30 urine culture with clinically insignificant MRI Foot Right WO Contrast Result Date: 11/10/2022 There is soft tissue swelling involving the right great toe with a distal wound. There is are smallsites of erosion involving the great toe distal tuft with associated marrow edema extending into the distal phalanx base. No drainable fluid collection. There has been prior application of the 4th digit through the metatarsal neck. There is subcutaneous edema about the ankle and along the dorsum ofthe foot. Mild first metatarsophalangeal joint chondrosis. There is subacute on chronic denervationof intrinsic foot musculature. There is tendinopathy of the distal Achilles tendon. Impression: 1. Distal right great toe wound with osteomyelitis of the distal phalanx and small erosions of the distal tuft. Assessment: 1. Acute respiratory failure possibly secondary to CHF no clear-cut evidence of pneumonia 2. Right great toe ulcer with osteomyelitis patient is supposed to be on vanc and Flagyl through 12/23 3. Dementia 4. Acute kidney injury, improved 5. CHF/diabetes mellitus/schizophrenia 6. Bilateral pleural effusions Plan: Continue daptomycin 6 mg/kg q.48h due to ease of administration and less monitoring and Flagyl to 12/23, Discuss with Nephrology about the vancomycin and renal insufficiency, Nephrology thinks it is related to diuretics and not vancomycin induced and recommended to continue 4. CBC, CMP, CK level weekly faxed to [phone] 5. Okay to DC from ID perspective I personally spent a portion of this patient encounter with [employer]. I fully performed the assessment. Iagree with the impression and plan and have made adjustments as needed. I spent 10 minutes of non overlapping time in managing the patient independent from [employer] today. En Chaudhary MD * Britteny Bronson - 12/17/2022 3:14 PM CDT Nutrition Assessment Reason for Assessment: Follow Up Encounter Date: 12/17/22 3:14 PM Nutrition Assessment and Plan: Patient is a 72 y.o. female. Admit Dx: Shortness of breath [R06.02] Acute systolic congestive heart failure (CMS/HCC) (HCC) [I50.21] Acute congestive heart failure, unspecified heart failure type (HCC) [I50.9]. Admitted on 12/06/2022, current LOS is 11 days. Chart reviewed. Heart Healthy 2 gram sodium consistent carbohydrate 1600 kcal renal diet ordered per MD. 0-100% of meals documented over the past few days. 75% of breakfast documented this morning. Pt reports good appetite and eating at least 50% of meals. Unsure if she has been drinking ONS. Labs reviewed. BG variable. Phos 4.8. GI WDL. Last BM 12/15. +MASD with skin loss to gluteal cleft and right great toe ulcer with osteomyelitis. Plan for antibiotics until 12/23. +1 bilateral lower extremity edema. Lasix ordered. Will order new weight. Recommend continue with PO diet/ONS order in place at this time. RD following and available if needed. Current diet order: Adult Diet Restricted; Low Fat, Low Chol, Low Na, 2 GM Sodium; Consistent Carb 1600 chanelle; Renal Pt intake is inconsistent. PO intakes: 0-100% Nutrition Diagnosis 1: Increased nutrient needs (protein) Related to: Wounds Evidenced by: Physicalfinding Interventions: Assess for nutrition changes, Initial assessment, Medical food supplement Monitoring and Evaluation: Appetite, Blood glucoses, Discharge plans, Food preferences, Labs, Plan of care, PO intake, Supplement tolerance, Weight changes, Wound healing Goals: Adequate nutrition to meet estimated needs by next assessment, Oral intake to meet 75% estimated nutritional needs by next assessment, Tolerance of medical food supplement by next assessment Estimated needs: Total Kcal/kg Estimated Needs : 1972.5 based on Kcal/k. Type of Weight Used for Estimated Kcals: Current Total Protein Estimated Needs (gm): 94.68 Protein Needs Based on g/k.2 Type of Weight Used for Estimated Protein : Current. Estimated Fluid Needs Total Fluid Estimated Needs Comments:: 1-2 L CHF or per MD orders Objective Anthropometrics Weight: 78.9 kg (173 lb 15.1 oz) Weight Method (RD Entered): Stated Admission Weight : 78.9 kg Weight Change: -0.02 kg (-0.05 lbs) IBW/kg (Calculated) : 49.9 kg Height: 157.5 cm (5' 2.01 ) Weight in (lb) to have BMI = 25: 136.4 BMI (Calculated): 31.8 BMI Classification: BMI 30.0 - 34.9 Obese Class I 3 Day I/O Summary 12/150 - 12/17 0659 In: 360 [P.O.:360] Out: 5450 [Urine:5450] Temp: 36.7 ??C (98.1 ??F) Past Medical History: Diagnosis Date Arthritis CHF (congestive heart failure) ([facility]/HCC) ([facility]) Dementia ([facility]) Depression Diabetic neuropathy ([facility]) Hyperlipidemia Hypertension Movement disorder Osteomyelitis ([facility]) Renal disorder Schizophrenia ([facility]) Type 2 diabetes mellitus ([facility]) Medications and Lab Review: Scheduled Meds: atorvastatin, 20 mg, oral, Nightly benztropine, 1.5 mg, oral, Nightly carvediloL, 6.25 mg, oral, BID with meals (bkfst, dinner) DAPTOmycin, 6 mg/kg (Adjusted), intravenous, Q48H famotidine, 10 mg, oral, Daily ferric gluconate, 125 mg of elemental iron, intravenous, Once per day on Thu ferrous sulfate, 65 mg of elemental iron, oral, Daily with breakfast furosemide, 60 mg, oral, BID DIURETIC heparin, 5,000 Units, subcutaneous, Q8H SOL insulin glargine, 15 Units, subcutaneous, Nightly insulin lispro, 0-4 Units, subcutaneous, Nightly insulin lispro, 0-5 Units, subcutaneous, TID with meals insulin lispro, 7 Units, subcutaneous, TID with meals metroNIDAZOLE, 500 mg, oral, TID pregabalin, 75 mg, oral, Nightly risperiDONE, 2 mg, oral, Nightly Continuous Infusions: Sodium Date Value Ref Range Status 12/17/2022 142 135 - 145 mmol/L Final Potassium, pl Date Value Ref Range Status 12/17/2022 4.4 3.3 - 4.9 mmol/L Final BUN Date Value Ref Range Status 12/17/2022 53 (H) 6 - 25 mg/dL Final Creatinine Date Value Ref Range Status 12/17/2022 2.26 (H) 0.60 - 1.10 mg/dL Final Phosphorus, pl Date Value Ref Range Status 12/17/2022 4.8 (H) 2.3 - 4.5 mg/dL Final Albumin Date Value Ref Range Status 12/17/2022 2.7 (L) 3.5 - 5.0 g/dL Final Magnesium Date Value Ref Range Status 12/17/2022 2.2 1.4 - 2.5 mg/dL Final Calcium Date Value Ref Range Status 12/17/2022 9.3 8.5 - 10.3 mg/dL Final Lab Results Component Value Date HGBA1C 7.1 (H) 11/30/2022 Lab Results Component Value Date GLUCOSE 227 (H) 12/17/2022 GLUCOSE 194 12/17/2022 GLUCOSE 202 (H) 12/17/2022 GLUCOSE 197 12/16/2022 GLUCOSE 157 12/16/2022 GLUCOSE 119 12/16/2022 GLUCOSE 140 12/16/2022 GLUCOSE 130 12/15/2022 Nursing Assessment: Last BM Date: 12/15/22 Bowel Sounds (All Quadrants): Active Timoteo Scale Score: 15 Skin Integrity: Cracking Type of Wound (LDA): Wound Diet Instructions Recommend to follow a consistent carbohydrate/heart healthy diet, which includes a variety of fruits, vegetables, whole-grains, low-fat dairy products, beans, lean meats, and fish. Limit foods that are high in saturated fats and sodium like desserts, fast food, fried/breaded foods, deli meats, sausage, nobles, and gravies/sauces. Aim to eat less than 2,000mg sodium per day (about 500-700 mg per meal). Eat three meals per day and eat 45-60 grams of carbohydrate at each one, do not skip meals and aim to eat meals at consistent times. Avoid sugary drinks like lemonade, regular soda, Gatorade, andsweet tea and drink water throughout the day. Call [phone] to speak with a dietitian about anydiet related concerns. Recommend to follow up with outpatient nutrition counseling, ask your doctorfor referral and call [phone] to make an appointment. Additional Resources [employer]: www.diabetes.org/nutrition [employer]: www.heart.org/en/healthy-living/healthy-eating Nutrition Follow-Up : 12/24/22 Brittney Bronson MS, RD, LD * Elsa Anthony COTA - 12/17/2022 2:59 PM CDT Occupational Therapy NOTE / SESSION TYPE: DAILY PROGRESS / TREATMENT Patient's Name: Sixto Chakraborty Age / Sex: 72 y.o. / female Room: [id number] : 1950 Date of service: 12/17/22 TIME IN: 1500 TIME OUT: 1524 Patient Active Problem List Diagnosis Schizoaffective disorder, bipolar type ([facility]/HCC) (HCC) Diabetic neuropathy (HCC) Type 2 diabetes mellitus with diabetic neuropathy, with long-term current use of insulin ([facility]) (HCC) Hypertension associated with diabetes (HCC) Amputation of toe of right foot (CMS/HCC) (HCC) Iron deficiency anemia Gastroesophageal reflux disease Hyperlipidemia associated with type 2 diabetes mellitus (HCC) Dementia (HCC) Schizoaffective disorder, bipolar type ([facility]/HCC) (HCC) 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 2 diabetes mellitus ([facility]/HCC) (HCC) Encounter for Medicare annual wellness exam Late onset Alzheimer's dementia without behavioral disturbance (HCC) Volume overload Anemia Toe necrosis (CMS/HCC) (HCC) Physical deconditioning Left leg DVT (CMS/HCC) (HCC) Pulmonary nodule Retention of urine, unspecified Unspecified osteoarthritis, unspecified site Unsteadiness on feet Weakness Parkinsonism ([facility]) Wheezing Anemia in stage 4 chronic kidney disease ([facility]) Osteomyelitis of great toe of right foot ([facility]) ([facility]) Abnormal urinalysis Cellulitis of great toe of right foot BRENDA (acute kidney injury) ([facility]) ([facility]) Acute on chronic diastolic congestive heart failure ([facility]) ([facility]) Bibasilar consolidations Movement disorder Shortness of breath Past Medical History: Diagnosis Date Arthritis CHF (congestive heart failure) ([facility]) ([facility]) Dementia ([facility]) Depression Diabetic neuropathy (HCC) Hyperlipidemia Hypertension Movement disorder Osteomyelitis (HCC) Renal disorder Schizophrenia ([facility]) Type 2 diabetes mellitus ([facility]) Past Surgical History: Procedure Laterality Date SECTION Right right foot TOE AMPUTATION Right 01/06/2020 4th toe amp/ foot debridement/ Dr. Anat Pelayo Precautions (including weight-bearing): Fall risk and Bed / chair alarm Subjective: Why don't they have my full name on that board Therapy Pain: Pre-therapy pain level: 0 /10 Pain location: No pain - Location N/A Pain Intervention(s): No pain - Intervention N/A Post-therapy pain level: 0 /10 Pain scale reference: 0-10 SCALE Objective: Appearance: Presentation upon OT arrival: Patient Supine with head of bed elevated Presentation upon OT departure: Patient Sitting in bedside recliner Bed / Chair alarm in place and activated upon OT departure: Yes Call light within arms reach of patient at end of session: Yes Completed patient handoff and notified SUPER[employer] / RN, name: Cricket, of patient's location and functional status upon completion of session Cognitive / Perceptual: A&O x4, follows 1 step commands 100%, pleasant and cooperative throughout Mobility / Transfers: Bed Mobility: Supine > Sit with min assist x1 Transfer(s): Sit <> Stand with w/w and min assist x1 EOB > Recliner with w/w and CGA for safety Living Skills / Other Activities: UE DRESSING LOCATION OF UE DRESSING: Sitting on EOB TASKS COMPLETED: Hospital gow OVERALL ASSIST LEVEL: PARTIAL / MODERATE ASSISTANCE: LESS THAN HALF (1% - 49%) ADDITIONAL DOCUMENTATION: Min assist to thread BUE Caregiver Present: No Education & Training Provided: Role of OT, OT plan of care, ADL training, Bed mobility training, and Functional transfer training Assessment: Activity tolerance / response to OT session: GOOD PARTICIPATION, GOOD MOTIVATION, and RECEPTIVE TO EDUCATION / TRAINING Progress towards goals: Please refer to care plan from this date for progress towards individual goals Plan: Therapy Plan: Rehab Potential (Prognosis): good OT Recommendations This Date: OT RECOMMENDATIONS: OT Recommendation: Home with 24 hour supervision, Home Health OT (due to patient and family declining SNF placement) Flow sheet updated and OT Consultation in Regards to Change in Discharge Recommendations: YES /NO: No Additional recommendation comments: Frequency of therapy:OT Frequency during current admission: 3-5x/wk If this is the last note, consider this the discharge summary MICHEAL Hamilton 12/17/22 Cosigned by Rivka Garcia OT at 12/17/2022 4:41 PM CDT * Larry Dennis MD - 12/17/2022 11:50 AM CDT HOSPITALIST PROGRESS NOTE PCP: Cherelle Corcoran [phone] Admit Date: 12/06/2022 2:04 PM LOS: 11 CHIEF COMPLAINT / ADMITTING HPI This is a 72-year-old female with history of CHF, chronic kidney disease, osteomyelitis, diabetes, schizophrenia who came to the hospital with complaint of shortness a breath. Patient noted to be volume overloaded. Patient has now been transitioned to oral diuretics. Infectious Disease has been guiding IV antibiotics. Adjustments in IV antibiotics noted-cefepime now discontinued. Infectious Disease has been guiding IV antibiotics. Patient previously noted to be on vancomycin/Flagyl. Changed vancomycin to daptomycin. INTERVAL HISTORY 12/17/2022: in bed pleasant eating breakfast awake alert. Discussed with social scientist. Planning for discharge on antibiotics now on daptomycin q.48h hourly through 12/23 REVIEW OF SYSTEMS DATA Vitals: 12/17/22 0730 12/17/22 0900 12/17/22 1100 12/17/22 1136 BP: 132/51 137/46 BP Location: Left arm Right arm Patient Position: Lying Lying Pulse: 65 64 62 70 Resp: 16 18 Temp: 36.6 ??C (97.9 ??F) 36.7 ??C (98.1 ??F) TempSrc: Axillary Axillary SpO2: 95% 98% Weight: Height: Intake/Output Summary (Last 24 hours) at 12/17/2022 1150 Last data filed at 12/17/2022 1013 Gross per 24 hour Intake 480 ml Output 3850 ml Net -3370 ml CURRENT LAB RESULTS Laboratory results have been reviewed by me: Recent Results (from the past 12 hour(s)) CBC with auto differential Collection Time: 12/17/22 6:02 AM Result Value Ref Range WBC 10.7 (H) 3.8 - 9.9 K/cumm Hgb 8.8 (L) 11.9 - 15.5 g/dL Hct 28.5 (L) 35.6 - 45.5 % Plt 314 150 - 400 K/cumm MPV 11.0 9.1 - 12.3 fL RBC 2.98 (L) 3.90 - 5.20 M/cumm MCV 95.6 81.3 - 96.4 fL MCH 29.5 27.1 - 33.3 pg MCHC 30.9 (L) 32.3 - 35.7 g/dL RDW CV 16.3 (H) 11.1 - 14.9 % RDW SD 57.3 (H) 35.7 - 48.1 fL NRBC abs 0.02 (H) 0.00 - 0.01 K/cumm Renal function panel Collection Time: 12/17/22 6:02 AM Result Value Ref Range Sodium 142 135 - 145 mmol/L Potassium, pl 4.4 3.3 - 4.9 mmol/L Chloride 107 97 - 110 mmol/L CO2 24 22 - 32 mmol/L Anion gap 11 2 - 15 mmol/L BUN 53 (H) 6 - 25 mg/dL Creatinine 2.26 (H) 0.60 - 1.10 mg/dL Glucose 202 (H) 70 - 199 mg/dL Calcium 9.3 8.5 - 10.3 mg/dL Phosphorus, pl 4.8 (H) 2.3 - 4.5 mg/dL Albumin 2.7 (L) 3.5 - 5.0 g/dL Magnesium Collection Time: 12/17/22 6:02 AM Result Value Ref Range Magnesium 2.2 1.4 - 2.5 mg/dL Differential, auto Collection Time: 12/17/22 6:02 AM Result Value Ref Range Neutrophil abs 6.4 1.7 - 6.5 K/cumm Imm gran abs 0.0 0.0 - 0.1 K/cumm Lymphocyte abs 3.0 0.8 - 3.3 K/cumm Monocyte abs 1.0 (H) 0.2 - 0.8 K/cumm Eosinophil abs 0.3 0.0 - 0.5 K/cumm Basophil abs 0.1 0.0 - 0.1 K/cumm Neutrophil pct 59.7 % Imm gran pct 0.4 % Lymphocyte pct 27.8 % Monocyte pct 9.1 % Eosinophil pct 2.5 % Basophil pct 0.5 % eGFR Collection Time: 12/17/22 6:02 AM Result Value Ref Range eGFR 22 mL/min/1.73 m2 POCT glucose Collection Time: 12/17/22 7:18 AM Result Value Ref Range Glucose, POC 194 70 - 199 mg/dL LAB TREND CBC: Lab Results Component Value Date WBC 10.7 (H) 12/17/2022 WBC 11.0 (H) 12/16/2022 WBC 10.4 (H) 12/15/2022 HGB 8.8 (L) 12/17/2022 HGB 8.2 (L) 12/16/2022 HGB 7.8 (L) 12/15/2022 HCT 28.5 (L) 12/17/2022 HCT 27.0 (L) 12/16/2022 HCT 25.7 (L) 12/15/2022 BMP: Lab Results Component Value Date SODIUM 142 12/17/2022 SODIUM 141 12/16/2022 SODIUM 144 12/15/2022 POTASSIUM 4.4 12/17/2022 POTASSIUM 4.4 12/16/2022 POTASSIUM 4.1 12/15/2022 CHLORIDE 107 12/17/2022 CREATININE 2.26 (H) 12/17/2022 CREATININE 2.44 (H) 12/16/2022 CREATININE 2.51 (H) 12/15/2022 CALCIUM 9.3 12/17/2022 CALCIUM 9.2 12/16/2022 CALCIUM 9.1 12/15/2022 No results found for: BNP No results found for: ALKPHOS Lab Results Component Value Date MAGNESIUM 2.2 12/17/2022 MAGNESIUM 2.2 12/16/2022 MAGNESIUM 2.5 12/15/2022 No results found for: AST No results found for: ALT Lab Results Component Value Date PHOS 4.8 (H) 12/17/2022 PHOS 4.1 12/16/2022 PHOS 4.2 12/15/2022 RADIOLOGY Imaging results have been reviewed by me: Transthoracic Echo (TTE) Complete W Doppler/CF Final Result XR Chest PA Lateral 2 Views Final Result Tiny right effusion. Electronically signed by: Arabella Ma M.D. XR Chest 1 Vw Portable Final Result Interval development of bilateral pleural effusions and bibasilar consolidation. Electronically signed by: Wilner Rodriguez M.D. PROCEDURES MEDICATIONS FOR CURRENT ENCOUNTER Scheduled Meds: atorvastatin, 20 mg, oral, Nightly benztropine, 1.5 mg, oral, Nightly carvediloL, 6.25 mg, oral, BID with meals (bkfst, dinner) DAPTOmycin, 6 mg/kg (Adjusted), intravenous, Q48H famotidine, 10 mg, oral, Daily ferric gluconate, 125 mg of elemental iron, intravenous, Once per day on Thu ferrous sulfate, 65 mg of elemental iron, oral, Daily with breakfast furosemide, 60 mg, oral, BID DIURETIC heparin, 5,000 Units, subcutaneous, Q8H SOL insulin glargine, 15 Units, subcutaneous, Nightly insulin lispro, 0-4 Units, subcutaneous, Nightly insulin lispro, 0-5 Units, subcutaneous, TID with meals insulin lispro, 7 Units, subcutaneous, TID with meals metroNIDAZOLE, 500 mg, oral, TID pregabalin, 75 mg, oral, Nightly risperiDONE, 2 mg, oral, Nightly Continuous Infusions: PRN Meds:. albuterol HFA, 2 puff dextrose, 15 g, 15 g at 12/11/220 OR dextrose, 250 mL glucagon, 1 mg ondansetron, 4 mg, 4 mg at 12/12/222036 polyethylene glycol, 17 g Diet: Dietary Orders (From admission, onward) Start Ordered 12/13/22 0700 Oral Nutrition Supplements Select Supplement: Ensure High Protein - Any flavor With Breakfast Question: Select Supplement: Answer: Ensure High Protein - Any flavor 12/12/22 1503 12/06/22 2356 Adult Diet Restricted; Low Fat, Low Chol, Low Na, 2 GM Sodium; Consistent Carb 1600 chanelle; Renal Diet effective now Question Answer Comment (CH) Diet type Restricted Fat / Sodium Restriction: Low Fat, Low Chol, Low Na Fat / Sodium Restriction: 2 GM Sodium Diabetic: Consistent Carb 1600 chanelle Renal: Renal 12/07/22 0000 EXAM Vitals: 12/17/22 1136 BP: 137/46 Pulse: 70 Resp: 18 Temp: 36.7 ??C (98.1 ??F) SpO2: 98% General appearance: appears stated age, cooperative, and no distress Head: Normocephalic, without obvious abnormality, atraumatic Lungs: clear to auscultation bilaterally Heart: S1, S2 normal Abdomen: soft, non-tender; bowel sounds normal; no masses, no organomegaly ASSESSMENT AND PLAN All Diagnosis Present on Admission Unless Otherwise Stated: Osteomyelitis right great toe, currently on daptomycin and Flagylas per Infectious Disease through December 23 Elevated troponin felt due to renal dysfunction no ACS appreciate Cardiology follow-up CHF chronic diastolic not in overload currently . Volume off with Lasix Chronic kidney disease as per Nephrology Essential hypertension continue Coreg monitor blood pressure Diabetes mellitus continue Lantus insulin sliding scale insulin monitor fingerstick blood sugars Anemia of chronic disease with iron deficiency currently on iron Hyperlipidemia continue Lipitor DVT prophylaxis heparin Medical Decision Making Complexity: My total encounter time on 12/17/2022 was 35 minutes which was spent in the activities documented in the note. This includes time spent prior to the visit and afterthe visit in direct care of the patient. This time does not include time spent in any separately reportable services. Consulting physicians: Treatment Team: Consulting Physician: Jovanni Tejeda DO; ConsultingPhysician: Krishna Morgan MD; Consulting Physician: Rene Leroy DPM; Consulting Physician: Jimbo Strauss MD Disposition: pending Code status: Full Code Voice recognition software MMTripIt Fluency Direct was used dictate and transcribe this document. Clerk Rating variances may occur. Despite proofreading, typographical errors may occur. Larry Dennis MD. HOSPITALIST 12/17/2022 11:50 AM * Norma Batista MD - 12/17/2022 8:28 AM CDT Cardiology follow-up Daily Progress[facility] SUBJECTIVE: Patient is resting in bed. NAD. Denies chest pain, sob, palpitations or syncope. OBJECTIVE: Vitals: 12/17/22 0010 12/17/22 0400 12/17/22 0418 12/17/22 0730 BP: 133/51 139/58 132/51 BP Location: Left arm Left arm Left arm Patient Position: Lying Lying Lying Pulse: 73 61 64 65 Resp: 18 18 16 Temp: 36.9 ??C (98.4 ??F) 36.9 ??C (98.4 ??F) 36.6 ??C (97.9 ??F) TempSrc: Oral Oral Oral SpO2: 100% 98% 95% Weight: Height: Intake/Output Summary (Last 24 hours) at 12/17/2022 0828 Last data filed at 12/17/2022 0400 Gross per 24 hour Intake 360 ml Output 3850 ml Net -3490 ml Scheduled Medications Medication Dose Route Frequency atorvastatin (LIPITOR) tablet 20 mg 20 mg oral Nightly benztropine (COGENTIN) tablet 1.5 mg 1.5 mg oral Nightly carvediloL (COREG) tablet 6.25 mg 6.25 mg oral BID with meals (bkfst, dinner) DAPTOmycin (CUBICIN) 50 mg/mL sodium chloride 0.9% 350 mg 6 mg/kg (Adjusted) intravenous Q48H famotidine (PEPCID) tablet 10 mg 10 mg oral Daily ferric gluconate (FERRLECIT) 125 mg of elemental iron in sodium chloride 0.9% 100 mL IVPB 125 mg ofelemental iron intravenous Once per day on Thu ferrous sulfate delayed release tablet 65 mg of elemental iron 65 mg of elemental iron oral Daily with breakfast furosemide (LASIX) tablet 60 mg 60 mg oral BID DIURETIC heparin 5,000 unit/mL injection 5,000 Units 5,000 Units subcutaneous Q8H SOL insulin glargine (LANTUS, SEMGLEE) 100 unit/mL injection 15 Units 15 Units subcutaneous Nightly insulin lispro (HumaLOG, ADMELOG) 100 unit/mL injection 0-4 Units 0-4 Units subcutaneous Nightly insulin lispro (HumaLOG, ADMELOG) 100 unit/mL injection 0-5 Units 0-5 Units subcutaneous TID with meals insulin lispro (HumaLOG, ADMELOG) 100 unit/mL injection 7 Units 7 Units subcutaneous TID with meals metroNIDAZOLE (FLAGYL) tablet 500 mg 500 mg oral TID pregabalin (LYRICA) capsule 75 mg 75 mg oral Nightly risperiDONE (RisperDAL) tablet 2 mg 2 mg oral Nightly LABS: Recent Labs Lab Units 12/17/22 0602 WBC K/cumm 10.7* HEMOGLOBIN g/dL 8.8* HEMATOCRIT % 28.5* PLATELETS K/cumm 314 Recent Labs Lab Units 12/17/22 0718 12/17/22 0602 SODIUM mmol/L -- 142 POTASSIUM PLASMA mmol/L -- 4.4 CHLORIDE mmol/L -- 107 CO2 mmol/L -- 24 ANIONGAP mmol/L -- 11 GLUCOSE mg/dL -- 202* POC GLUCOSE MONITOR mg/dL 194 -- BUN SERUM mg/dL -- 53* CREATININE mg/dL -- 2.26* CALCIUM mg/dL -- 9.3 ALBUMIN g/dL -- 2.7* No results found for: BNP Lab Results Component Value Date TROPONINI <0.04 05/04/2014 Exam General: in no apparent distress Neuro: Alert and oriented x 3, moves all extremities well Lungs: symmetric, unlabored, clear to auscultation bilaterally Heart: S1,S2, regular rate & rhythm, no murmurs, rubs, or gallops Abdomen: soft, non-tender, non-distended, bowel sounds present Extremities: no LE edema, palpable peripheral pulses BL TTE 12/08/22 Conclusions: Normal left ventricular size. Normal left ventricular systolic function with no focal wall motion abnormalities. Ejection fraction is measured at 65 %. Normal structure of the tricuspid valve. Moderate pulmonary hypertension based on right ventricular systolic pressure. Estimated peak RVSP is 50 mmHg. Mild tricuspid regurgitation. Dilated IVC with respiratory collapse consistent with elevated right atrial pressure (10-15 mmHg). NM MPI 08/05/22 IMPRESSION: 1. Normal exercise and rest myocardial perfusion. 2. Normal left ventricular size and systolic function. 3. Mild coronary artery calcifications. ASSESSMENT/PLAN: CKD contributing to volume overload - with acute on chronic kidney disease - managed by Nephrology CKD stage III with Brenda -nephrology is managing Acute on chronic diastolic heart failure - normal LV function , Nephro managing diuretics Elevated troponin due to renal dysfunction - does not represent ACS - nonischemic MPI recently Essential hypertension -BP stable Diabetes mellitus type -Manage per primary Right great toe ulcer with osteomyelitis - on antibiotic therapy as per Infectious Disease - normal TEO and TBI Iron deficiency anemia status post IV iron infusions - hemoglobin 8.8 today -improving -Monitor H&H closely Shiloh Barrientos NP [facility] 12/17/2022 8:28 AM Patient was seen examined by me Dr. Batista in person pertinent information was reviewed agree with nurse practitioner assessment plan total care of the patient more than [address] Batista spent for patient's management and care * Jimbo Strauss MD - 12/16/2022 5:00 PM CDT Nephrology Daily Progress [facility]# [id number] SS#: [id number] Phone#: [phone] #: [id number] Subjective Chief complaint of Interval History: feels well, still some what confused, poor po intake Objective Vitals: 24hr Min/Max: Temp Min: 36.6 ??C (97.9 ??F) Max: 37.2 ??C (98.9 ??F) Pulse Min: 62 Max: 70 BP Min: 119/67 Max: 149/69 Resp Min: 16 Max: 18 SpO2 Min: 92 % Max: 98 % Intake/Output Summary (Last 24 hours) at 12/18/2022 0613 Last data filed at 12/18/2022 0610 Gross per 24 hour Intake 120 ml Output 3075 ml Net -2955 ml Wt Readings from Last 3 Encounters: 12/06/22 78.9 kg (173 lb 15.1 oz) 12/05/22 79.3 kg (174 lb 12.8 oz) 11/10/22 69.5 kg (153 lb 4.8 oz) Temp Av.8 ??C (98.2 ??F) Min: 36.6 ??C (97.9 ??F) Max: 37.2 ??C (98.9 ??F) BP Min: 119/67 Max: 149/69 Pulse Av.5 Min: 62 Max: 70 Resp Av.7 Min: 16 Max: 18 SpO2 Av.2 % Min: 92 % Max: 98 % Most Recent: Vitals: 12/18/22 0330 BP: 142/65 Pulse: 70 Resp: 18 Temp: 36.7 ??C (98.1 ??F) SpO2: 98% I/O last 2 completed shifts: In: 120 [P.O.:120] Out: 3375 [Urine:337] I/O this shift: In: - Out: 1999 [Urine:1999] Current Facility-Administered Medications Medication Dose Route Frequency Last Rate Last Admin albuterol HFA (PROVENTIL HFA,VENTOLIN HFA,PROAIR HFA) 90 mcg/actuation inhaler 2 puff 2 puff inhalation Q4H PRN (RT) atorvastatin (LIPITOR) tablet 20 mg 20 mg oral Nightly 20 mg at 12/17/222058 benztropine (COGENTIN) tablet 1.5 mg 1.5 mg oral Nightly 1.5 mg at 12/17/222057 carvediloL (COREG) tablet 6.25 mg 6.25 mg oral BID with meals (bkfst, dinner) 6.25 mg at 12/17/22 172 DAPTOmycin (CUBICIN) 50 mg/mL sodium chloride 0.9% 350 mg 6 mg/kg (Adjusted) intravenous Q48H 350 mg at 12/16/22 1549 dextrose oral liquid liquid 15 g 15 g oral Q15 Min PRN 15 g at 12/11/22 1710 Or dextrose (D10W) 10% bolus 250 mL 250 mL intravenous Q15 Min PRN famotidine (PEPCID) tablet 10 mg 10 mg oral Daily 10 mg at 12/17/22 0952 ferric gluconate (FERRLECIT) 125 mg of elemental iron in sodium chloride 0.9% 100 mL IVPB 125 mg ofelemental iron intravenous Once per day on Thu 110 mL/hr at 06/28/23 1013 125 mg of elemental iron at 12/17/22 1013 ferrous sulfate delayed release tablet 65 mg of elemental iron 65 mg of elemental iron oral Daily with breakfast 65 mg of elemental iron at 12/17/22 0953 furosemide (LASIX) tablet 60 mg 60 mg oral BID DIURETIC 60 mg at 12/17/22 172 glucagon injection 1 mg 1 mg intramuscular Q30 Min PRN heparin 5,000 unit/mL injection 5,000 Units 5,000 Units subcutaneous Q8H SOL 5,000 Units at 12/17/222058 insulin glargine (LANTUS, SEMGLEE) 100 unit/mL injection 15 Units 15 Units subcutaneous Nightly 15 Units at 12/17/222099 insulin lispro (HumaLOG, ADMELOG) 100 unit/mL injection 0-4 Units 0-4 Units subcutaneous Nightly 1 Units at 12/17/222099 insulin lispro (HumaLOG, ADMELOG) 100 unit/mL injection 0-5 Units 0-5 Units subcutaneous TID with meals 2 Units at 12/17/221722 insulin lispro (HumaLOG, ADMELOG) 100 unit/mL injection 7 Units 7 Units subcutaneous TID with meals7 Units at 12/17/221723 metroNIDAZOLE (FLAGYL) tablet 500 mg 500 mg oral TID 500 mg at 12/17/222057 ondansetron (ZOFRAN) injection 4 mg 4 mg intravenous Q6H PRN 4 mg at 12/12/222036 polyethylene glycol (MIRALAX) packet 17 g 17 g oral Daily PRN pregabalin (LYRICA) capsule 75 mg 75 mg oral Nightly 75 mg at 12/17/222057 risperiDONE (RisperDAL) tablet 2 mg 2 mg oral Nightly 2 mg at 12/17/222057 Continuous Medications Medication Dose Last Rate LDA: PICC Single Lumen 11/11/22 Non-tunneled Power Left Brachial;Upper arm (Active) Placement Date/Time: 11/11/22 1310 Placed by External Staff?: Other hospital Catheter Time Out Checklist Completed: Yes Hand Hygiene Performed: Yes Site Prep: Chlorhexidine Site Prep Agent has Completely Dried Before Insertion: Yes All 5 Steril... Number of days: 28 External Urinary Catheter (Active) Placement Date/Time: 12/06/22 1700 Inserted by: SWATI LAY External Catheter Type: Female External Urinary Catheter Sizes: Female- One size Number of days: 3 Vent settings: Hemodynamic parameters for last 24 hours: Physical Exam: General Appearance: Alert, cooperative, no distress, appears stated age, well developed, well nourished Head: Normocephalic, without obvious abnormality, atraumatic Eyes: PERRL, conjunctiva/corneas clear, EOM's intact, both eyes, anicteric Neck: Supple, symmetrical, trachea midline, no adenopathy; thyroid: No enlargement/tenderness/nodules; no carotid bruits, No JVD Lungs: Clear to auscultation bilaterally, respirations unlabored Cardiovascular: Regular rate and rhythm, S1 and S2 normal, no murmur, rub or gallop Abdomen: Soft, non-tender, bowel sounds active all four quadrants, non-distended Extremities: Extremities normal, +1 LE edema Skin: Skin color, texture, turgor normal, no rashes, lesions or bruising Neurologic: Alert & oriented person, + tremor Psychosocial: flat Dialysis Access Exam: Lab/Radiology/Diagnostic Review: Recent Labs Lab Units 12/17/22205012/17/22 0718 12/17/22 0602 12/16/22 0727 12/16/22 0525 12/15/22 0751 12/15/22 0553 SODIUM mmol/L -- -- 142 -- 141 -- 144 POTASSIUM PLASMA mmol/L -- -- 4.4 -- 4.4 -- 4.1 CHLORIDE mmol/L -- -- 107 -- 107 -- 112* CO2 mmol/L -- -- 24 -- 23 -- 22 BUN SERUM mg/dL -- -- 53* -- 52* -- 53* CREATININE mg/dL -- -- 2.26* -- 2.44* -- 2.51* QAS-AIN-THNDMEW mL/min/1.73 m2 -- -- 22 -- 21 -- 20 GLUCOSE mg/dL -- -- 202* -- 140 -- 130 POC GLUCOSE MONITOR mg/dL 206* < > -- < > -- < > -- CALCIUM mg/dL -- -- 9.3 -- 9.2 -- 9.1 ALBUMIN g/dL -- -- 2.7* -- 2.9* -- 2.8* PHOSPHORUS PLASMA mg/dL -- -- 4.8* -- 4.1 -- 4.2 < > = values in this interval not displayed. Additional Labs: Recent Labs Lab Units 12/17/22 0602 12/16/22 0525 12/15/22 0552 WBC K/cumm 10.7* 11.0* 10.4* HEMOGLOBIN g/dL 8.8* 8.2* 7.8* HEMATOCRIT % 28.5* 27.0* 25.7* PLATELETS K/cumm 314 303 303 NEUTROS PCT % 59.7 66.2 61.2 LYMPHS PCT % 27.8 23.2 26.4 MONOS PCT % 9.1 7.9 9.1 EOS PCT % 2.5 1.9 2.6 Assessment/Plan CKD: stage 3b, due to dm, htn. Expect some rise due to diuresis. As off 12/12/2022 still has lots of edema. Will need on going diuresis. This will lead to increase in BUN and creatinine HTN: adequately controlled Edema: mostly LE some combination of CKD, pulmonary HTN, on going diuresis. Will add metolazone to regimen As off 12/11/2022 still has edema, with diuresis expect some rise in creatinine As of 12/12/2022 has LE edema, still needs on going diuresis Anemia: combination of CKD, possible iron deficiency Dyspnea: due to volume overload. Hyperkalemia: mild. 7. Tremors: possible related to parkinson. May benefit form neurology consult. As off 12/16/2022 tremors are better 8. Anemia: iron deficiency 9. Metabolic acidosis: suspect renal failure related DICTATION DISCLAIMER: This note is transcribed using the Epoxy direct voice recognition system without human x ray tech. In an effort to expedite patient care, this note has not been adjusted for typographical, grammatical, and syntax by a trained medical instrument technician. Portions of this note have been copied from the medical record, but edited appropriately to accurately reflect the patient's current clinical state. Jimbo Strauss Office/exchange: [phone] Pager: [phone] * Gill Gamboa MD - 12/16/2022 11:55 AM CDT General Medicine Progress Note Interval Events: This is a 72-year-old female with history of CHF, chronic kidney disease, osteomyelitis, diabetes, schizophrenia who came to the hospital with complaint of shortness a breath. Patient noted to be volume overloaded. Patient has now been transitioned to oral diuretics. Infectious Disease has been guiding IV antibiotics. Adjustments in IV antibiotics noted-cefepime now discontinued. Infectious Disease has been guiding IV antibiotics. Patient previously noted to be on vancomycin/Flagyl. Now plan to change vancomycin to daptomycin. CK levels ordered. New home infusion orders will be needed Subjective: Chief complaint: Shortness of breath. Patient seen in her room. Resting comfortably. No new complaints. Objective: Vitals: 24hr Min/Max: Temp Min: 36.6 ??C (97.8 ??F) Max: 37.3 ??C (99.1 ??F) Pulse Min: 67 Max: 83 BP Min: 123/61 Max: 186/61 Resp Min: 17 Max: 18 SpO2 Min: 93 % Max: 95 % Most Recent: Vitals: 12/15/22 2130 12/16/22 0011 12/16/22 0410 12/16/22 0812 BP: 149/82 (!) 186/61 135/77 129/67 BP Location: Left arm Patient Position: Lying Pulse: 78 76 74 67 Resp: 18 18 17 18 Temp: 36.8 ??C (98.2 ??F) 36.9 ??C (98.5 ??F) 36.8 ??C (98.3 ??F) 37.3 ??C (99.1 ??F) TempSrc: Oral Oral Oral Axillary SpO2: 93% 95% 93% Weight: Height: Intake/Output Summary (Last 24 hours) at 12/16/2022 1202 Last data filed at 12/16/2022 0540 Gross per 24 hour Intake 240 ml Output 2200 ml Net -1960 ml Physical Exam: Physical Exam GEN: Alert. NAD HENT: Normocephalic. Atraumatic. CVS: RRR CHEST: Clear bilaterally ABD: soft. ND EXT: no edema Lab/Radiology/Diagnostic Review: Reviewed. Recent Results (from the past 24 hour(s)) POCT glucose Collection Time: 12/15/22 5:07 PM Result Value Ref Range Glucose, POC 153 70 - 199 mg/dL POCT glucose Collection Time: 12/15/22 8:59 PM Result Value Ref Range Glucose, POC 167 70 - 199 mg/dL POCT glucose Collection Time: 12/16/22 2:34 AM Result Value Ref Range Glucose, POC 166 70 - 199 mg/dL CBC with auto differential Collection Time: 12/16/22 5:25 AM Result Value Ref Range WBC 11.0 (H) 3.8 - 9.9 K/cumm Hgb 8.2 (L) 11.9 - 15.5 g/dL Hct 27.0 (L) 35.6 - 45.5 % Plt 303 150 - 400 K/cumm MPV 10.8 9.1 - 12.3 fL RBC 2.81 (L) 3.90 - 5.20 M/cumm MCV 96.1 81.3 - 96.4 fL MCH 29.2 27.1 - 33.3 pg MCHC 30.4 (L) 32.3 - 35.7 g/dL RDW CV 16.2 (H) 11.1 - 14.9 % RDW SD 57.2 (H) 35.7 - 48.1 fL NRBC abs 0.00 0.00 - 0.01 K/cumm Renal function panel Collection Time: 12/16/22 5:25 AM Result Value Ref Range Sodium 141 135 - 145 mmol/L Potassium, pl 4.4 3.3 - 4.9 mmol/L Chloride 107 97 - 110 mmol/L CO2 23 22 - 32 mmol/L Anion gap 11 2 - 15 mmol/L BUN 52 (H) 6 - 25 mg/dL Creatinine 2.44 (H) 0.60 - 1.10 mg/dL Glucose 140 70 - 199 mg/dL Calcium 9.2 8.5 - 10.3 mg/dL Phosphorus, pl 4.1 2.3 - 4.5 mg/dL Albumin 2.9 (L) 3.5 - 5.0 g/dL Magnesium Collection Time: 12/16/22 5:25 AM Result Value Ref Range Magnesium 2.2 1.4 - 2.5 mg/dL Differential, auto Collection Time: 12/16/22 5:25 AM Result Value Ref Range Neutrophil abs 7.3 (H) 1.7 - 6.5 K/cumm Imm gran abs 0.0 0.0 - 0.1 K/cumm Lymphocyte abs 2.6 0.8 - 3.3 K/cumm Monocyte abs 0.9 (H) 0.2 - 0.8 K/cumm Eosinophil abs 0.2 0.0 - 0.5 K/cumm Basophil abs 0.0 0.0 - 0.1 K/cumm Neutrophil pct 66.2 % Imm gran pct 0.4 % Lymphocyte pct 23.2 % Monocyte pct 7.9 % Eosinophil pct 1.9 % Basophil pct 0.4 % eGFR Collection Time: 12/16/22 5:25 AM Result Value Ref Range eGFR 21 mL/min/1.73 m2 POCT glucose Collection Time: 12/16/22 7:27 AM Result Value Ref Range Glucose, POC 118 70 - 199 mg/dL POCT glucose Collection Time: 12/16/22 11:28 AM Result Value Ref Range Glucose, POC 119 70 - 199 mg/dL Assessment and Plan: Principal Problem: Acute on chronic diastolic congestive heart failure ([facility]) ([facility]) Active Problems: Type 2 diabetes mellitus with diabetic neuropathy, with long-term current use of insulin ([facility]) ([facility]) Schizoaffective disorder, bipolar type ([facility]) ([facility]) 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 2 diabetes mellitus ([facility]) ([facility]) Late onset Alzheimer's dementia without behavioral disturbance ([facility]) Osteomyelitis of great toe of right foot ([facility]) ([facility]) BRENDA (acute kidney injury) ([facility]) ([facility]) Bibasilar consolidations Movement disorder Shortness of breath Acute hypoxemic respiratory failure. Respiratory status stable. Continue to monitor closely. Chronic diastolic congestive heart failure. Continue with oral Lasix Acute on chronic kidney disease stage 3. Creatinine is now 2.66. Remains stable. Continue to monitor closely. Type 2 diabetes. Continue Lantus 15 units q.h.s.. Continue to monitor Accu-Cheks closely. Essential hypertension. Continue with amlodipine 10 milligrams daily. Right great toe ulcer with osteomyelitis. Infectious Disease adjusting antibiotics. Now change IV vancomycin to daptomycin. Plan to continue antibiotics until 12/23. Disposition: Adjustments in antibiotics noted. Now changed over to IV daptomycin from vancomycin. New home infusion orders will be needed. Will order CK levels now My total encounter time on 12/16/2022 was 36 minutes which was spent in the activities documented inthe note. This includes time spent prior to the visit and after the visit in direct care of the patient. This time does not include time spent in any separately reportable services. Gill Gamboa MD Hospitalist [phone] 2:02 PM * Krishna Morgan MD - 12/16/2022 10:45 AM CDT Images from the original note were not included. Infectious Disease Sixto Chakraborty Admit Date: 12/06/2022 LOS: 10 Days Consulting physician:Bev Adames MD Reason for consult: osteomyelitis Interval Course No new events overnight New Symptoms Patient has no new symptoms, improved creatinine, WBCs slightly increased ATBX Vanc/Flagyl Data Vitals: 12/15/22 2130 12/16/22 0011 12/16/22 0410 12/16/22 0812 BP: 149/82 (!) 186/61 135/77 129/67 BP Location: Left arm Patient Position: Lying Pulse: 78 76 74 67 Resp: 18 18 17 18 Temp: 36.8 ??C (98.2 ??F) 36.9 ??C (98.5 ??F) 36.8 ??C (98.3 ??F) 37.3 ??C (99.1 ??F) TempSrc: Oral Oral Oral Axillary SpO2: 93% 95% 93% Weight: Height: Temp (24hrs), Av.8 ??C (98.3 ??F), Min:36.6 ??C (97.8 ??F), Max:37.3 ??C (99.1 ??F) Recent Labs Lab Units 12/16/22 0525 12/15/22 0552 12/13/22 0436 WBC K/cumm 11.0* 10.4* 9.5 HEMOGLOBIN g/dL 8.2* 7.8* 7.6* HEMATOCRIT % 27.0* 25.7* 24.7* PLATELETS K/cumm 303 303 294 Recent Labs Lab Units 12/16/22 0525 12/15/22 0553 12/14/22 0557 BUN SERUM mg/dL 52* 53* 56* CREATININE mg/dL 2.44* 2.51* 2.66* Scheduled Meds:atorvastatin, 20 mg, oral, Nightly benztropine, 1.5 mg, oral, Nightly carvediloL, 6.25 mg, oral, BID with meals (bkfst, dinner) famotidine, 10 mg, oral, Daily ferric gluconate, 125 mg of elemental iron, intravenous, Once per day on Thu ferrous sulfate, 65 mg of elemental iron, oral, Daily with breakfast furosemide, 60 mg, oral, BID DIURETIC heparin, 5,000 Units, subcutaneous, Q8H SOL insulin glargine, 15 Units, subcutaneous, Nightly insulin lispro, 0-4 Units, subcutaneous, Nightly insulin lispro, 0-5 Units, subcutaneous, TID with meals insulin lispro, 7 Units, subcutaneous, TID with meals metroNIDAZOLE, 500 mg, oral, TID pregabalin, 75 mg, oral, Nightly risperiDONE, 2 mg, oral, Nightly Continuous Infusions: PRN Meds:. albuterol HFA dextrose OR dextrose glucagon ondansetron polyethylene glycol Review of Systems: Gen: denies fevers, denies chills, denies sweats, denies unintentional weight loss HEENT: Denies sore throat, denies thrush Neck: Denies palpable lymph nodes, denies neck stiffness Cv: denies chest pain, denies palpitations Resp: Denies SOB, Denies orthopnea Gi: Denies abdominal pain, Denies diarrhea, denies n/v Extrem: Denies gross deformities, denies joint pain, denies myalgias Skin: Denies rashes, denies lesions Neuro: Denies weakness, denies paresthesias, denies memory loss Psych: denies depression, denies anxiety Objective: Vitals: 24hr Min/Max: Temp Min: 36.2 ??C (97.2 ??F) Max: 37 ??C (98.6 ??F) Pulse Min: 66 Max: 90 BP Min: 119/74 Max: 142/53 Resp Min: 12 Max: 22 SpO2 Min: 90 % Max: 99 % Most Recent : Vitals Vitals: 12/07/22 0000 12/07/22 0400 12/07/22 0827 12/07/22 1146 BP: 126/76 123/72 119/74 141/66 BP Location: Right arm Right arm Right arm Right arm Patient Position: Lying Lying Lying Lying Pulse: 90 69 75 70 Resp: Temp: 37 ??C (98.6 ??F) 36.4 ??C (97.6 ??F) 36.8 ??C (98.3 ??F) 36.7 ??C (98.1 ??F) TempSrc: Axillary Axillary Oral Oral SpO2: 90% 92% 92% 98% Weight: Height: Physical Exam: General appearance: alert, cooperative, no distress HEENT: (-)icterus, Oropharnyx is normal, NCAT Neck: No palpable LN Lungs: Course breath sounds and symmetric; minimal respiratory effort, no r/w/c Heart: regular rhythm, normal S1 and S2, no m/r/g Abdomen: soft without mass, non-tender, +bowel sounds, no HSM Skin: (-)new rashes, right great toe with dry gangrene. No drainage. Minimal erythema around the toe. MSK: no gross deformities, FROM Vascular: no Edema, Neuro: No focal deficits Psych: Appropriate mood and affect Impression: 1 x 1 cm ulceration to Tip of right great toe, dry wound bed, no odor, no drainage Lab/Radiology/Diagnostic Review: 12/07 chest x-ray FINDINGS: There is a tiny right effusion. The remainder of the lungs are clear. Heart not enlarged. Aortic atherosclerosis. No failure. The tip of a left PICC line is in the distal superior vena cava. Cultures 12/12 wound cultures right great toe Staph aureus 11/08 right toe culture with MRSA and mixed Gram-positive organisms Respiratory PCR negative 11/30 urine culture with clinically insignificant MRI Foot Right WO Contrast Result Date: 11/10/2022 There is soft tissue swelling involving the right great toe with a distal wound. There is are smallsites of erosion involving the great toe distal tuft with associated marrow edema extending into the distal phalanx base. No drainable fluid collection. There has been prior application of the 4th digit through the metatarsal neck. There is subcutaneous edema about the ankle and along the dorsum ofthe foot. Mild first metatarsophalangeal joint chondrosis. There is subacute on chronic denervationof intrinsic foot musculature. There is tendinopathy of the distal Achilles tendon. Impression: 1. Distal right great toe wound with osteomyelitis of the distal phalanx and small erosions of the distal tuft. Assessment: 1. Acute respiratory failure possibly secondary to CHF no clear-cut evidence of pneumonia 2. Right great toe ulcer with osteomyelitis patient is supposed to be on vanc and Flagyl through 12/23 3. Dementia 4. Acute kidney injury, improved 5. CHF/diabetes mellitus/schizophrenia 6. Bilateral pleural effusions Plan: Change vanc to daptomycin 6 mg/kg q.48h due to ease of administration and less monitoring and Flagyl to 12/23, check baseline CK Discuss with Nephrology about the vancomycin and renal insufficiency, Nephrology thinks it is related to diuretics and not vancomycin induced and recommended to continue 4. CBC, CMP, CK level weekly faxed to [phone] 5. Okay to DC from ID perspective * William Velasquez MD - 12/16/2022 8:08 AM CDT Daily Progress [facility] Cardiology OBJECTIVE: Past Medical History: Diagnosis Date Arthritis CHF (congestive heart failure) (CMS/HCC) (HCC) Dementia (HCC) Depression Diabetic neuropathy (HCC) Hyperlipidemia Hypertension Movement disorder Osteomyelitis (HCC) Renal disorder Schizophrenia (HCC) Type 2 diabetes mellitus (HCC) Family History Problem Relation Age of Onset Stomach cancer Father Scheduled Medications Medication Dose Route Frequency atorvastatin (LIPITOR) tablet 20 mg 20 mg oral Nightly benztropine (COGENTIN) tablet 1.5 mg 1.5 mg oral Nightly carvediloL (COREG) tablet 6.25 mg 6.25 mg oral BID with meals (bkfst, dinner) famotidine (PEPCID) tablet 10 mg 10 mg oral Daily ferric gluconate (FERRLECIT) 125 mg of elemental iron in sodium chloride 0.9% 100 mL IVPB 125 mg ofelemental iron intravenous Once per day on Thu ferrous sulfate delayed release tablet 65 mg of elemental iron 65 mg of elemental iron oral Daily with breakfast furosemide (LASIX) tablet 60 mg 60 mg oral BID DIURETIC heparin 5,000 unit/mL injection 5,000 Units 5,000 Units subcutaneous Q8H SOL insulin glargine (LANTUS, SEMGLEE) 100 unit/mL injection 15 Units 15 Units subcutaneous Nightly insulin lispro (HumaLOG, ADMELOG) 100 unit/mL injection 0-4 Units 0-4 Units subcutaneous Nightly insulin lispro (HumaLOG, ADMELOG) 100 unit/mL injection 0-5 Units 0-5 Units subcutaneous TID with meals insulin lispro (HumaLOG, ADMELOG) 100 unit/mL injection 7 Units 7 Units subcutaneous TID with meals metOLazone (ZAROXOLYN) tablet 2.5 mg 2.5 mg oral BID DIURETIC metroNIDAZOLE (FLAGYL) tablet 500 mg 500 mg oral TID pregabalin (LYRICA) capsule 75 mg 75 mg oral Nightly risperiDONE (RisperDAL) tablet 2 mg 2 mg oral Nightly Recent Labs Lab Units 12/16/22 0525 12/15/22 0552 12/13/22 0436 12/11/22 2226 12/11/22 0509 WBC K/cumm 11.0* 10.4* 9.5 10.5* 10.1* HEMOGLOBIN g/dL 8.2* 7.8* 7.6* 8.3* 7.8* HEMATOCRIT % 27.0* 25.7* 24.7* 26.6* 25.7* PLATELETS K/cumm 303 303 294 361 314 Recent Labs Lab Units 12/16/22 0727 12/16/22 0525 12/16/22 0234 12/15/22 2059 12/15/22 1707 12/15/22 0751 12/15/22 0553 12/14/22 0805 12/14/22 0557 12/13/22 0754 12/13/22 0436 12/12/22 0724 12/11/22 2226 SODIUM mmol/L -- 141 -- -- -- -- 144 -- 144 -- 143 -- 139 POTASSIUM PLASMA mmol/L -- 4.4 -- -- -- -- 4.1 -- 4.3 -- 3.9 -- 4.8 CHLORIDE mmol/L -- 107 -- -- -- -- 112* -- 113* -- 111* -- 109 CO2 mmol/L -- 23 -- -- -- -- 22 -- 20* -- 21* -- 17* ANIONGAP mmol/L -- 11 -- -- -- -- 10 -- 11 -- 11 -- 13 GLUCOSE mg/dL -- 140 -- -- -- -- 130 -- 154 -- 87 -- 188 POC GLUCOSE MONITOR mg/dL 118 -- 166 167 153 < > -- < > -- < > -- < > -- BUN SERUM mg/dL -- 52* -- -- -- -- 53* -- 56* -- 56* -- 60* CREATININE mg/dL -- 2.44* -- -- -- -- 2.51* -- 2.66* -- 2.64* -- 2.33* CALCIUM mg/dL -- 9.2 -- -- -- -- 9.1 -- 8.7 -- 8.7 -- 8.9 ALBUMIN g/dL -- 2.9* -- -- -- -- 2.8* -- 2.7* -- 2.9* -- 2.9* < > = values in this interval not displayed. Intake/Output Summary (Last 24 hours) at 12/16/2022 0808 Last data filed at 12/16/2022 0540 Gross per 24 hour Intake 340 ml Output 2200 ml Net -1860 ml Vitals: 12/15/22199912/15/22 2130 12/16/22 0011 12/16/22 0410 BP: 149/82 (!) 186/61 135/77 BP Location: Patient Position: Pulse: 77 78 76 74 Resp: 18 Temp: 36.8 ??C (98.2 ??F) 36.9 ??C (98.5 ??F) 36.8 ??C (98.3 ??F) TempSrc: Oral Oral Oral SpO2: 93% 95% 93% Weight: Height: ASSESSMENT/PLAN: Patient Active Problem List Diagnosis Schizoaffective disorder, bipolar type (CMS/HCC) ([facility]) Diabetic neuropathy ([facility]) Type 2 diabetes mellitus with diabetic neuropathy, with long-term current use of insulin (CMS/HCC) (HCC) Hypertension associated with diabetes (HCC) Amputation of toe of right foot (CMS/HCC) (HCC) Iron deficiency anemia Gastroesophageal reflux disease Hyperlipidemia associated with type 2 diabetes mellitus (HCC) Dementia (HCC) Schizoaffective disorder, bipolar type (CMS/HCC) (HCC) 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 2 diabetes mellitus (CMS/HCC) (HCC) Encounter for Medicare annual wellness exam Late onset Alzheimer's dementia without behavioral disturbance (HCC) Volume overload Anemia Toe necrosis ([facility]/HCC) ([facility]) Physical deconditioning Left leg DVT ([facility]/HCC) ([facility]) Pulmonary nodule Retention of urine, unspecified Unspecified osteoarthritis, unspecified site Unsteadiness on feet Weakness Parkinsonism (HCC) Wheezing Anemia in stage 4 chronic kidney disease (HCC) Osteomyelitis of great toe of right foot (CMS/HCC) ([facility]) Abnormal urinalysis Cellulitis of great toe of right foot BRENDA (acute kidney injury) ([facility]/HCC) ([facility]) Acute on chronic diastolic congestive heart failure ([facility]) ([facility]) Bibasilar consolidations Movement disorder Shortness of breath S stable from CV standpoint breathing stable no chest pain shortness of breath Exam: Gen: Comfortable, NAD CVS: RRR, S1, S2 present, trace leg edema GI: Soft Non tender Chest: CTAB ASSESSMENT/PLAN: CKD contributing to volume overload - with acute on chronic kidney disease - managed by Nephrology CKD stage III with Brenda -nephrology is managing Acute on chronic diastolic heart failure - normal LV function , Nephro managing diuretics Elevated troponin due to renal dysfunction - does not represent ACS - nonischemic MPI recently Essential hypertension -BP stable Diabetes mellitus type 2 Right great toe ulcer with osteomyelitis - on antibiotic therapy as per Infectious Disease - normal TEO and TBI Iron deficiency anemia status post IV iron infusions - hemoglobin improving William Velasquez MD, FACC, [facility], RPVI [facility] [phone] 12/16/2022 8:08 AM * Nemo Diop, HOUSE CALLS NURSE PRACTITIONER - 12/15/2022 3:39 PM CDT Physical Therapy PT PROGRESS NOTE PATIENT'S NAME:Sixto Chakraborty :1950 AGE:72 y.o. ROOM:[place] [id number] Past Medical History: Diagnosis Date Arthritis CHF (congestive heart failure) ([facility]) (HCC) Dementia (HCC) Depression Diabetic neuropathy (HCC) Hyperlipidemia Hypertension Movement disorder Osteomyelitis (HCC) Renal disorder Schizophrenia (HCC) Type 2 diabetes mellitus ([facility]) Past Surgical History: Procedure Laterality Date SECTION Right right foot TOE AMPUTATION Right 01/06/2020 4th toe amp/ foot debridement/ Dr. Anat Pelayo Patient Active Problem List Diagnosis Schizoaffective disorder, bipolar type ([facility]) ([facility]) Diabetic neuropathy ([facility]) Type 2 diabetes mellitus with diabetic neuropathy, with long-term current use of insulin ([facility]) ([facility]) Hypertension associated with diabetes (HCC) Amputation of toe of right foot ([facility]) ([facility]) Iron deficiency anemia Gastroesophageal reflux disease Hyperlipidemia associated with type 2 diabetes mellitus ([facility]) Dementia ([facility]) Schizoaffective disorder, bipolar type ([facility]) ([facility]) 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 2 diabetes mellitus ([facility]) ([facility]) Encounter for Medicare annual wellness exam Late onset Alzheimer's dementia without behavioral disturbance ([facility]) Volume overload Anemia Toe necrosis ([facility]) ([facility]) Physical deconditioning Left leg DVT ([facility]) ([facility]) Pulmonary nodule Retention of urine, unspecified Unspecified osteoarthritis, unspecified site Unsteadiness on feet Weakness Parkinsonism ([facility]) Wheezing Anemia in stage 4 chronic kidney disease ([facility]) Osteomyelitis of great toe of right foot ([facility]) ([facility]) Abnormal urinalysis Cellulitis of great toe of right foot BRENDA (acute kidney injury) ([facility]) ([facility]) Acute on chronic diastolic congestive heart failure ([facility]) ([facility]) Bibasilar consolidations Movement disorder Shortness of breath TIME IN: 1435 TIME OUT: 1500 SUBJECTIVE Patient reports she is ok, agreeable to therapy MENTAL STATUS/ORIENTATION: Alert and oriented x name and date of PAIN: Pre-therapy pain level: 0/10 Pain location: n/a Pain intervention: n/a Post-therapy pain level/response to intervention: 0/10 OBJECTIVE PRECAUTIONS: fall risk APPEARANCE/POSTURE: supine in bed alarm on and in place, call light next to patient MOBILITY DOCUMENTATION: Bed Mobility/Transfers: supine to sit SBA with patient using bed rail, sit to stand CG assist, stand to sit min assist due to decreased safety with knee instability with turning to sit in the chair Gait: amb 20' w/w CG assist initially with min assist to turn to chair safely due to silverio knee instability, slow lanny, decreased step length TREATMENT: Sitting le ex x 10 reps APPEARANCE/POSTURE (end of session): sitting in bed side chair, alarm on and in place call light next to patient, joy catheter in place hand off given to nurse Cricket EDUCATION:bed mobility , therapeutic exercises , functional transfer training, gait training , strengthening, and safety RESPONSE TO EDUCATION: demonstrated understanding, needs reinforcement, and verbalizes understanding ASSESSMENT Activity tolerance/response to P.T.: patient sharad tx session w/o complaints, able to amb 20' w/w CG assist with min assist to complete Barriers to learning: Physical and Cognitive Barriers to discharge: Limited family support, Limited safety awareness, Decreased endurance, Lowerextremity weakness, and Medication managment Patient continues progressing toward previously set goals which remain appropriate at this time. PLAN PT Discharge Recommendations this date: PT Recommendation/Plan: Home Health PT, Home with 24 hour supervision PT Frequency during current admission: 3-5x/wk Refer to multi-disciplinary care plan section for PT specific goals. If this is the last note, please consider this the discharge summary. Cosigned by Mindy William PT at 12/15/2022 4:03 PM CDT * Elsa Anthony COTA - 12/15/2022 3:34 PM CDT Occupational Therapy NOTE / SESSION TYPE: DAILY PROGRESS / TREATMENT Patient's Name: Sixto Chakraborty Age / Sex: 72 y.o. / female Room: [place] [id number] : 1950 Date of service: 12/15/22 TIME IN: 5 TIME OUT: 8 Patient Active Problem List Diagnosis Schizoaffective disorder, bipolar type (CMS/HCC) (HCC) Diabetic neuropathy (HCC) Type 2 diabetes mellitus with diabetic neuropathy, with long-term current use of insulin (CMS/HCC) (HCC) Hypertension associated with diabetes (HCC) Amputation of toe of right foot ([facility]) ([facility]) Iron deficiency anemia Gastroesophageal reflux disease Hyperlipidemia associated with type 2 diabetes mellitus ([facility]) Dementia ([facility]) Schizoaffective disorder, bipolar type ([facility]) ([facility]) 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 2 diabetes mellitus ([facility]) ([facility]) Encounter for Medicare annual wellness exam Late onset Alzheimer's dementia without behavioral disturbance ([facility]) Volume overload Anemia Toe necrosis ([facility]) ([facility]) Physical deconditioning Left leg DVT ([facility]) ([facility]) Pulmonary nodule Retention of urine, unspecified Unspecified osteoarthritis, unspecified site Unsteadiness on feet Weakness Parkinsonism ([facility]) Wheezing Anemia in stage 4 chronic kidney disease ([facility]) Osteomyelitis of great toe of right foot ([facility]) ([facility]) Abnormal urinalysis Cellulitis of great toe of right foot BRENDA (acute kidney injury) ([facility]) ([facility]) Acute on chronic diastolic congestive heart failure ([facility]) ([facility]) Bibasilar consolidations Movement disorder Shortness of breath Past Medical History: Diagnosis Date Arthritis CHF (congestive heart failure) ([facility]) ([facility]) Dementia ([facility]) Depression Diabetic neuropathy ([facility]) Hyperlipidemia Hypertension Movement disorder Osteomyelitis (HCC) Renal disorder Schizophrenia ([facility]) Type 2 diabetes mellitus ([facility]) Past Surgical History: Procedure Laterality Date SECTION Right right foot TOE AMPUTATION Right 01/06/2020 4th toe amp/ foot debridement/ Dr. Anat Pelayo Precautions (including weight-bearing): Fall risk, Bed / chair alarm, and Contact isolation: MRSA Subjective: What are those boots for on my feet Therapy Pain: Pre-therapy pain level: 8 /10 Pain location: bilateral legs Pain Intervention(s): Repositioned and RN Notified Post-therapy pain level: 8 /10 Pain scale reference: 0-10 SCALE Objective: Appearance: Presentation upon OT arrival: Patient Sitting in bedside recliner Presentation upon OT departure: Patient Sitting in bedside recliner Bed / Chair alarm in place and activated upon OT departure: Yes Call light within arms reach of patient at end of session: Yes Completed patient handoff and notified [employer] / RN, name: Cricket, of patient's location and functional status upon completion of session Cognitive / Perceptual: A&O x4, pleasant, cooperative Mobility / Transfers: Transfer(s): Sit <> Stand at recliner with w/w and CGA for safety Static stand at table top x2 trials, 1st trial ~ 1.43 minutes, 2nd trial ~ 45 seconds d/t fatigue Living Skills / Other Activities: Pt completed static standing activity of connect 4 while standing at table top. Pt completed x2 trials, 1st trial ~ 1.43 minutes, 2nd trial ~ 45 seconds. Each trial with FAIR balance, kyphotic posture and bilateral UE support on table top. Caregiver Present: No Education & Training Provided: Role of OT, OT plan of care, Functional transfer training, Balance training, and IADL training Assessment: Activity tolerance / response to OT session: GOOD PARTICIPATION, GOOD MOTIVATION, and RECEPTIVE TO EDUCATION / TRAINING Progress towards goals: Please refer to care plan from this date for progress towards individual goals Plan: Therapy Plan: Rehab Potential (Prognosis): good OT Recommendations This Date: OT RECOMMENDATIONS: OT Recommendation: Home with 24 hour supervision, Home Health OT (due to patient and family declining SNF placement) Flow sheet updated and OT Consultation in Regards to Change in Discharge Recommendations: YES /NO: No Additional recommendation comments: Frequency of therapy:OT Frequency during current admission: 3-5x/wk If this is the last note, consider this the discharge summary MICHEAL Hamilton 12/15/22 Cosigned by Rivka Garcia OT at 12/15/2022 5:25 PM CDT * Krishna Morgan MD - 12/15/2022 2:16 PM CDT Images from the original note were not included. Infectious Disease Sixto Chakraborty Admit Date: 12/06/2022 LOS: 9 Days Consulting physician:Bev Adames MD Reason for consult: osteomyelitis Interval Course No new events overnight New Symptoms Patient has no new symptoms, unchanged creatinine remains on diuresis, WBCs slightly increased ATBX Vanc/Flagyl Data Vitals: 12/15/22 0426 12/15/22 0745 12/15/22 0959 12/15/22 1241 BP: 123/49 142/70 123/61 BP Location: Right arm Right arm Right arm Patient Position: Lying Lying;HOB 30 degrees HOB 30 degrees Pulse: 65 68 69 67 Resp: 18 18 18 Temp: 36.9 ??C (98.5 ??F) 36.7 ??C (98.1 ??F) 36.6 ??C (97.8 ??F) TempSrc: Oral Oral Oral SpO2: 91% 95% 95% Weight: Height: Temp (24hrs), Av.8 ??C (98.2 ??F), Min:36.6 ??C (97.8 ??F), Max:36.9 ??C (98.5 ??F) Recent Labs Lab Units 12/15/22 0552 12/13/22 0436 12/11/22 2226 WBC K/cumm 10.4* 9.5 10.5* HEMOGLOBIN g/dL 7.8* 7.6* 8.3* HEMATOCRIT % 25.7* 24.7* 26.6* PLATELETS K/cumm 303 294 361 Recent Labs Lab Units 12/15/22 0553 12/14/22 0557 12/13/22 0436 BUN SERUM mg/dL 53* 56* 56* CREATININE mg/dL 2.51* 2.66* 2.64* Scheduled Meds:atorvastatin, 20 mg, oral, Nightly benztropine, 1.5 mg, oral, Nightly carvediloL, 6.25 mg, oral, BID with meals (bkfst, dinner) famotidine, 10 mg, oral, Daily ferric gluconate, 125 mg of elemental iron, intravenous, Once per day on Thu ferrous sulfate, 65 mg of elemental iron, oral, Daily with breakfast furosemide, 60 mg, oral, BID DIURETIC heparin, 5,000 Units, subcutaneous, Q8H SOL insulin glargine, 15 Units, subcutaneous, Nightly insulin lispro, 0-4 Units, subcutaneous, Nightly insulin lispro, 0-5 Units, subcutaneous, TID with meals insulin lispro, 7 Units, subcutaneous, TID with meals metOLazone, 2.5 mg, oral, BID DIURETIC metroNIDAZOLE, 500 mg, oral, TID pregabalin, 75 mg, oral, Nightly risperiDONE, 2 mg, oral, Nightly Continuous Infusions: PRN Meds:. albuterol HFA dextrose OR dextrose glucagon ondansetron polyethylene glycol Review of Systems: Gen: denies fevers, denies chills, denies sweats, denies unintentional weight loss HEENT: Denies sore throat, denies thrush Neck: Denies palpable lymph nodes, denies neck stiffness Cv: denies chest pain, denies palpitations Resp: Denies SOB, Denies orthopnea Gi: Denies abdominal pain, Denies diarrhea, denies n/v Extrem: Denies gross deformities, denies joint pain, denies myalgias Skin: Denies rashes, denies lesions Neuro: Denies weakness, denies paresthesias, denies memory loss Psych: denies depression, denies anxiety Objective: Vitals: 24hr Min/Max: Temp Min: 36.2 ??C (97.2 ??F) Max: 37 ??C (98.6 ??F) Pulse Min: 66 Max: 90 BP Min: 119/74 Max: 142/53 Resp Min: 12 Max: 22 SpO2 Min: 90 % Max: 99 % Most Recent : Vitals Vitals: 12/07/22 0000 12/07/22 0400 12/07/22 0827 12/07/22 1146 BP: 126/76 123/72 119/74 141/66 BP Location: Right arm Right arm Right arm Right arm Patient Position: Lying Lying Lying Lying Pulse: 90 69 75 70 Resp: 20 22 12 18 Temp: 37 ??C (98.6 ??F) 36.4 ??C (97.6 ??F) 36.8 ??C (98.3 ??F) 36.7 ??C (98.1 ??F) TempSrc: Axillary Axillary Oral Oral SpO2: 90% 92% 92% 98% Weight: Height: Physical Exam: General appearance: alert, cooperative, no distress HEENT: (-)icterus, Oropharnyx is normal, NCAT Neck: No palpable LN Lungs: Course breath sounds and symmetric; minimal respiratory effort, no r/w/c Heart: regular rhythm, normal S1 and S2, no m/r/g Abdomen: soft without mass, non-tender, +bowel sounds, no HSM Skin: (-)new rashes, right great toe with dry gangrene. No drainage. Minimal erythema around the toe. MSK: no gross deformities, FROM Vascular: no Edema, Neuro: No focal deficits Psych: Appropriate mood and affect Impression: 1 x 1 cm ulceration to Tip of right great toe, dry wound bed, no odor, no drainage Lab/Radiology/Diagnostic Review: 12/07 chest x-ray FINDINGS: There is a tiny right effusion. The remainder of the lungs are clear. Heart not enlarged. Aortic atherosclerosis. No failure. The tip of a left PICC line is in the distal superior vena cava. Cultures 12/12 wound cultures right great toe Staph aureus 11/08 right toe culture with MRSA and mixed Gram-positive organisms Respiratory PCR negative 11/30 urine culture with clinically insignificant MRI Foot Right WO Contrast Result Date: 11/10/2022 There is soft tissue swelling involving the right great toe with a distal wound. There is are smallsites of erosion involving the great toe distal tuft with associated marrow edema extending into the distal phalanx base. No drainable fluid collection. There has been prior application of the 4th digit through the metatarsal neck. There is subcutaneous edema about the ankle and along the dorsum ofthe foot. Mild first metatarsophalangeal joint chondrosis. There is subacute on chronic denervationof intrinsic foot musculature. There is tendinopathy of the distal Achilles tendon. Impression: 1. Distal right great toe wound with osteomyelitis of the distal phalanx and small erosions of the distal tuft. Assessment: 1. Acute respiratory failure possibly secondary to CHF no clear-cut evidence of pneumonia 2. Right great toe ulcer with osteomyelitis patient is supposed to be on vanc and Flagyl through 12/23 3. Dementia 4. Acute kidney injury, improved 5. CHF/diabetes mellitus/schizophrenia 6. Bilateral pleural effusions Plan: Change vanc to daptomycin 6 mg/kg q.48h due to ease of administration and less monitoring and Flagyl to 12/23, check baseline CK discussed with pharmacy Discuss with Nephrology about the vancomycin and renal insufficiency, Nephrology thinks it is related to diuretics and not vancomycin induced and recommended to continue 4. CBC, CMP, vanc level bi weekly faxed to [phone] 5. Okay to DC from ID perspective * Anil Wong MD - 12/15/2022 12:58 PM CDT Nephrology Daily Progress [facility]# [id number] #: [id number] Phone#: [phone] #: [phone] Subjective Interval History: pt feels a little better today. Objective Vitals: 24hr Min/Max: Temp Min: 36.6 ??C (97.8 ??F) Max: 36.9 ??C (98.5 ??F) Pulse Min: 55 Max: 76 BP Min: 109/47 Max: 142/70 Resp Min: 18 Max: 18 SpO2 Min: 91 % Max: 96 % Intake/Output Summary (Last 24 hours) at 12/15/2022 1258 Last data filed at 12/15/2022 1242 Gross per 24 hour Intake 320 ml Output 3175 ml Net -2855 ml Wt Readings from Last 3 Encounters: 12/06/22 78.9 kg (173 lb 15.1 oz) 12/05/22 79.3 kg (174 lb 12.8 oz) 11/10/22 69.5 kg (153 lb 4.8 oz) Temp Av.7 ??C (98.1 ??F) Min: 36.6 ??C (97.8 ??F) Max: 36.9 ??C (98.5 ??F) BP Min: 109/47 Max: 142/70 Pulse Av Min: 55 Max: 76 Resp Av Min: 18 Max: 18 SpO2 Av % Min: 91 % Max: 96 % Most Recent: Vitals: 12/15/22 1241 BP: 123/61 Pulse: 67 Resp: 18 Temp: 36.6 ??C (97.8 ??F) SpO2: 95% I/O last 2 completed shifts: In: 220 [P.O.:220] Out: 2575 [Urine:2575] I/O this shift: In: 100 [IV Piggyback:100] Out: 600 [Urine:600] Current Facility-Administered Medications Medication Dose Route Frequency Last Rate Last Admin albuterol HFA (PROVENTIL HFA,VENTOLIN HFA,PROAIR HFA) 90 mcg/actuation inhaler 2 puff 2 puff inhalation Q4H PRN (RT) atorvastatin (LIPITOR) tablet 20 mg 20 mg oral Nightly 20 mg at 12/14/222102 benztropine (COGENTIN) tablet 1.5 mg 1.5 mg oral Nightly 1.5 mg at 12/14/222102 carvediloL (COREG) tablet 6.25 mg 6.25 mg oral BID with meals (bkfst, dinner) 6.25 mg at 12/15/22916 dextrose oral liquid liquid 15 g 15 g oral Q15 Min PRN 15 g at 12/11/22 1710 Or dextrose (D10W) 10% bolus 250 mL 250 mL intravenous Q15 Min PRN famotidine (PEPCID) tablet 10 mg 10 mg oral Daily 10 mg at 12/15/22915 ferric gluconate (FERRLECIT) 125 mg of elemental iron in sodium chloride 0.9% 100 mL IVPB 125 mg ofelemental iron intravenous Once per day on Thu 110 mL/hr at 12/15/22935 125 mg of elemental iron at 12/15/22935 ferrous sulfate delayed release tablet 65 mg of elemental iron 65 mg of elemental iron oral Daily with breakfast 65 mg of elemental iron at 12/15/22915 furosemide (LASIX) tablet 60 mg 60 mg oral BID DIURETIC 60 mg at 12/15/2216 glucagon injection 1 mg 1 mg intramuscular Q30 Min PRN heparin 5,000 unit/mL injection 5,000 Units 5,000 Units subcutaneous Q8H SOL 5,000 Units at 12/15/22535 insulin glargine (LANTUS, SEMGLEE) 100 unit/mL injection 15 Units 15 Units subcutaneous Nightly 15 Units at 12/14/222100 insulin lispro (HumaLOG, ADMELOG) 100 unit/mL injection 0-4 Units 0-4 Units subcutaneous Nightly 1 Units at 12/14/222100 insulin lispro (HumaLOG, ADMELOG) 100 unit/mL injection 0-5 Units 0-5 Units subcutaneous TID with meals 1 Units at 12/13/221715 insulin lispro (HumaLOG, ADMELOG) 100 unit/mL injection 7 Units 7 Units subcutaneous TID with meals7 Units at 12/15/22914 metOLazone (ZAROXOLYN) tablet 2.5 mg 2.5 mg oral BID DIURETIC 2.5 mg at 12/15/22 0916 metroNIDAZOLE (FLAGYL) tablet 500 mg 500 mg oral TID 500 mg at 12/15/22 0536 ondansetron (ZOFRAN) injection 4 mg 4 mg intravenous Q6H PRN 4 mg at 12/12/222036 polyethylene glycol (MIRALAX) packet 17 g 17 g oral Daily PRN pregabalin (LYRICA) capsule 75 mg 75 mg oral Nightly 75 mg at 12/14/222102 risperiDONE (RisperDAL) tablet 2 mg 2 mg oral Nightly 2 mg at 12/14/222102 Continuous Medications Medication Dose Last Rate Physical Exam: General Appearance: Alert, cooperative, no distress, appears stated age, well developed, well nourished Lungs: Clear to auscultation bilaterally, respirations unlabored Cardiovascular: Regular rate and rhythm, S1 and S2 normal, no rub or gallop Abdomen: Soft, non-tender, , non-distended Extremities: Extremities normal, 1+-2+ generalized edema Neurologic: Alert & oriented Lab/Radiology/Diagnostic Review: Recent Labs Lab Units 12/15/22 1202 12/15/22 0751 12/15/22 0553 12/14/22 0805 12/14/22 0557 12/13/22 0754 12/13/22 0436 SODIUM mmol/L -- -- 144 -- 144 -- 143 POTASSIUM PLASMA mmol/L -- -- 4.1 -- 4.3 -- 3.9 CHLORIDE mmol/L -- -- 112* -- 113* -- 111* CO2 mmol/L -- -- 22 -- 20* -- 21* BUN SERUM mg/dL -- -- 53* -- 56* -- 56* CREATININE mg/dL -- -- 2.51* -- 2.66* -- 2.64* [id number]-YTA-AUWUMMJ mL/min/1.73 m2 -- -- 20 -- 18 -- 19 GLUCOSE mg/dL -- -- 130 -- 154 -- 87 POC GLUCOSE MONITOR mg/dL 109 < > -- < > -- < > -- CALCIUM mg/dL -- -- 9.1 -- 8.7 -- 8.7 ALBUMIN g/dL -- -- 2.8* -- 2.7* -- 2.9* PHOSPHORUS PLASMA mg/dL -- -- 4.2 -- 4.0 -- 4.6* < > = values in this interval not displayed. Additional Labs: Recent Labs Lab Units 12/15/22 0552 12/13/22 0436 12/11/22 2226 WBC K/cumm 10.4* 9.5 10.5* HEMOGLOBIN g/dL 7.8* 7.6* 8.3* HEMATOCRIT % 25.7* 24.7* 26.6* PLATELETS K/cumm 303 294 361 NEUTROS PCT % 61.2 61.7 69.9 LYMPHS PCT % 26.4 24.7 18.4 MONOS PCT % 9.1 9.7 8.4 EOS PCT % 2.6 2.9 2.2 Assessment/Plan CKD: good output. creat is lower at 2.51 HTN: adequately controlled Edema: persistent. Will increase diuretic therapy (done). May need to hold amlodipine in view of severe fluid retention. Anemia Dyspnea: improved Hyperkalemia: resolved 7. Metabolic acidosis * Gill Gamboa MD - 12/15/2022 11:52 AM CDT General Medicine Progress Note Interval Events: This is a 72-year-old female with history of CHF, chronic kidney disease, osteomyelitis, diabetes, schizophrenia who came to the hospital with complaint of shortness a breath. Patient noted to be volume overloaded. Patient has now been transitioned to oral diuretics. Infectious Disease has been guiding IV antibiotics. Adjustments in IV antibiotics noted-cefepime now discontinued. Infectious Disease recommends continuing IV vancomycin/Flagyl until 12/23. Discharge orders updated. Home health/home infusion orders done. Subjective: Chief complaint: Shortness of breath. Patient seen in room. She is fully alert and awake. Objective: Vitals: 24hr Min/Max: Temp Min: 36.6 ??C (97.9 ??F) Max: 36.9 ??C (98.5 ??F) Pulse Min: 55 Max: 76 BP Min: 109/47 Max: 142/70 Resp Min: 18 Max: 18 SpO2 Min: 91 % Max: 96 % Most Recent: Vitals: 12/15/22 0055 12/15/22 0426 12/15/22 0745 12/15/22 0959 BP: 117/61 123/49 142/70 BP Location: Right arm Right arm Right arm Patient Position: HOB 30 degrees Lying Lying;HOB 30 degrees Pulse: 58 65 68 69 Resp: 18 18 Temp: 36.9 ??C (98.5 ??F) 36.7 ??C (98.1 ??F) TempSrc: Oral Oral SpO2: 91% 95% Weight: Height: Intake/Output Summary (Last 24 hours) at 12/15/2022 1159 Last data filed at 12/15/2022 0936 Gross per 24 hour Intake 320 ml Output 2575 ml Net -2255 ml Physical Exam: Physical Exam GEN: Alert. NAD HENT: Normocephalic. Atraumatic. CVS: RRR CHEST: Clear bilaterally ABD: soft. ND EXT: no edema Lab/Radiology/Diagnostic Review: Reviewed. Recent Results (from the past 24 hour(s)) POCT glucose Collection Time: 12/14/22 12:34 PM Result Value Ref Range Glucose, POC 70 70 - 199 mg/dL POCT glucose Collection Time: 12/14/22 4:59 PM Result Value Ref Range Glucose, POC 142 70 - 199 mg/dL POCT glucose Collection Time: 12/14/22 8:59 PM Result Value Ref Range Glucose, POC 225 (H) 70 - 199 mg/dL POCT glucose Collection Time: 12/15/22 2:17 AM Result Value Ref Range Glucose, POC 185 70 - 199 mg/dL CBC with auto differential Collection Time: 12/15/22 5:52 AM Result Value Ref Range WBC 10.4 (H) 3.8 - 9.9 K/cumm Hgb 7.8 (L) 11.9 - 15.5 g/dL Hct 25.7 (L) 35.6 - 45.5 % Plt 303 150 - 400 K/cumm MPV 11.1 9.1 - 12.3 fL RBC 2.64 (L) 3.90 - 5.20 M/cumm MCV 97.3 (H) 81.3 - 96.4 fL MCH 29.5 27.1 - 33.3 pg MCHC 30.4 (L) 32.3 - 35.7 g/dL RDW CV 16.7 (H) 11.1 - 14.9 % RDW SD 59.1 (H) 35.7 - 48.1 fL NRBC abs 0.00 0.00 - 0.01 K/cumm Differential, auto Collection Time: 12/15/22 5:52 AM Result Value Ref Range Neutrophil abs 6.4 1.7 - 6.5 K/cumm Imm gran abs 0.0 0.0 - 0.1 K/cumm Lymphocyte abs 2.8 0.8 - 3.3 K/cumm Monocyte abs 1.0 (H) 0.2 - 0.8 K/cumm Eosinophil abs 0.3 0.0 - 0.5 K/cumm Basophil abs 0.0 0.0 - 0.1 K/cumm Neutrophil pct 61.2 % Imm gran pct 0.3 % Lymphocyte pct 26.4 % Monocyte pct 9.1 % Eosinophil pct 2.6 % Basophil pct 0.4 % Renal function panel Collection Time: 12/15/22 5:53 AM Result Value Ref Range Sodium 144 135 - 145 mmol/L Potassium, pl 4.1 3.3 - 4.9 mmol/L Chloride 112 (H) 97 - 110 mmol/L CO2 22 22 - 32 mmol/L Anion gap 10 2 - 15 mmol/L BUN 53 (H) 6 - 25 mg/dL Creatinine 2.51 (H) 0.60 - 1.10 mg/dL Glucose 130 70 - 199 mg/dL Calcium 9.1 8.5 - 10.3 mg/dL Phosphorus, pl 4.2 2.3 - 4.5 mg/dL Albumin 2.8 (L) 3.5 - 5.0 g/dL Magnesium Collection Time: 12/15/22 5:53 AM Result Value Ref Range Magnesium 2.5 1.4 - 2.5 mg/dL eGFR Collection Time: 12/15/22 5:53 AM Result Value Ref Range eGFR 20 mL/min/1.73 m2 POCT glucose Collection Time: 12/15/22 7:51 AM Result Value Ref Range Glucose, POC 201 (H) 70 - 199 mg/dL Assessment and Plan: Principal Problem: Acute on chronic diastolic congestive heart failure (CMS/HCC) (HCC) Active Problems: Type 2 diabetes mellitus with diabetic neuropathy, with long-term current use of insulin ([facility]) ([facility]) Schizoaffective disorder, bipolar type ([facility]) ([facility]) 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 2 diabetes mellitus ([facility]/HCC) ([facility]) Late onset Alzheimer's dementia without behavioral disturbance (HCC) Osteomyelitis of great toe of right foot (CMS/HCC) (HCC) BRENDA (acute kidney injury) ([facility]) ([facility]) Bibasilar consolidations Movement disorder Shortness of breath Acute hypoxemic respiratory failure. Respiratory status has been stable. Patient has continued to do well. Chronic diastolic congestive heart failure. Continue with oral Lasix Acute on chronic kidney disease stage 3. Creatinine is now 2.66. Remains stable. Continue to monitor closely. Type 2 diabetes. Continue Lantus 15 units q.h.s.. Monitor Accu-Cheks q.a.c. q.h.s. adjust with a low-dose sliding scale as needed. Essential hypertension continue amlodipine 10 milligrams daily. Right great toe ulcer with osteomyelitis. Plan to continue antibiotics until 12/23. Home health and home infusion orders done Disposition: Discharge orders updated. Home health/home infusion orders updated. Discharge planning underway. My total encounter time on 12/15/2022 was 36 minutes which was spent in the activities documented inthe note. This includes time spent prior to the visit and after the visit in direct care of the patient. This time does not include time spent in any separately reportable services. Gill Gamboa MD Hospitalist [phone] 1:59 AM * William Velasquez MD - 12/15/2022 10:41 AM CDT Daily Progress [facility] Cardiology OBJECTIVE: Past Medical History: Diagnosis Date Arthritis CHF (congestive heart failure) ([facility]) ([facility]) Dementia (HCC) Depression Diabetic neuropathy (HCC) Hyperlipidemia Hypertension Movement disorder Osteomyelitis (HCC) Renal disorder Schizophrenia (HCC) Type 2 diabetes mellitus (HCC) Family History Problem Relation Age of Onset Stomach cancer Father Scheduled Medications Medication Dose Route Frequency atorvastatin (LIPITOR) tablet 20 mg 20 mg oral Nightly benztropine (COGENTIN) tablet 1.5 mg 1.5 mg oral Nightly carvediloL (COREG) tablet 6.25 mg 6.25 mg oral BID with meals (bkfst, dinner) famotidine (PEPCID) tablet 10 mg 10 mg oral Daily ferric gluconate (FERRLECIT) 125 mg of elemental iron in sodium chloride 0.9% 100 mL IVPB 125 mg ofelemental iron intravenous Once per day on Thu ferrous sulfate delayed release tablet 65 mg of elemental iron 65 mg of elemental iron oral Daily with breakfast furosemide (LASIX) tablet 60 mg 60 mg oral BID DIURETIC heparin 5,000 unit/mL injection 5,000 Units 5,000 Units subcutaneous Q8H SOL insulin glargine (LANTUS, SEMGLEE) 100 unit/mL injection 15 Units 15 Units subcutaneous Nightly insulin lispro (HumaLOG, ADMELOG) 100 unit/mL injection 0-4 Units 0-4 Units subcutaneous Nightly insulin lispro (HumaLOG, ADMELOG) 100 unit/mL injection 0-5 Units 0-5 Units subcutaneous TID with meals insulin lispro (HumaLOG, ADMELOG) 100 unit/mL injection 7 Units 7 Units subcutaneous TID with meals metOLazone (ZAROXOLYN) tablet 2.5 mg 2.5 mg oral BID DIURETIC metroNIDAZOLE (FLAGYL) tablet 500 mg 500 mg oral TID pregabalin (LYRICA) capsule 75 mg 75 mg oral Nightly risperiDONE (RisperDAL) tablet 2 mg 2 mg oral Nightly Recent Labs Lab Units 12/15/22 0552 12/13/22 0436 12/11/22 2226 12/11/22 0509 12/10/22 0542 WBC K/cumm 10.4* 9.5 10.5* 10.1* 10.6* HEMOGLOBIN g/dL 7.8* 7.6* 8.3* 7.8* 7.1* HEMATOCRIT % 25.7* 24.7* 26.6* 25.7* 23.0* PLATELETS K/cumm 303 294 361 314 299 Recent Labs Lab Units 12/15/22 0751 12/15/22 0553 12/15/22 0217 12/14/22 2059 12/14/22 1659 12/14/22 0805 12/14/22 0557 12/13/22 0754 12/13/22 0436 12/12/22 0724 12/11/22 2226 12/11/22 0811 12/11/22 0509 SODIUM mmol/L -- 144 -- -- -- -- 144 -- 143 -- 139 -- 144 POTASSIUM PLASMA mmol/L -- 4.1 -- -- -- -- 4.3 -- 3.9 -- 4.8 -- 4.5 CHLORIDE mmol/L -- 112* -- -- -- -- 113* -- 111* -- 109 -- 112* CO2 mmol/L -- 22 -- -- -- -- 20* -- 21* -- 17* -- 19* ANIONGAP mmol/L -- 10 -- -- -- -- 11 -- 11 -- 13 -- 13 GLUCOSE mg/dL -- 130 -- -- -- -- 154 -- 87 -- 188 -- 83 POC GLUCOSE MONITOR mg/dL 201* -- 185 225* 142 < > -- < > -- < > -- < > -- BUN SERUM mg/dL -- 53* -- -- -- -- 56* -- 56* -- 60* -- 67* CREATININE mg/dL -- 2.51* -- -- -- -- 2.66* -- 2.64* -- 2.33* -- 2.62* CALCIUM mg/dL -- 9.1 -- -- -- -- 8.7 -- 8.7 -- 8.9 -- 8.8 ALBUMIN g/dL -- 2.8* -- -- -- -- 2.7* -- 2.9* -- 2.9* -- 3.0* < > = values in this interval not displayed. Intake/Output Summary (Last 24 hours) at 12/15/2022 1041 Last data filed at 12/15/2022 0936 Gross per 24 hour Intake 320 ml Output 2575 ml Net -2255 ml Vitals: 12/15/22 0042 12/15/22 0055 12/15/22 0426 12/15/22 0959 BP: (!) 112/36 117/61 123/49 142/70 BP Location: Right arm Right arm Right arm Right arm Patient Position: Lying HOB 30 degrees Lying Lying;HOB 30 degrees Pulse: 55 58 65 69 Resp: 18 18 18 Temp: 36.9 ??C (98.4 ??F) 36.9 ??C (98.5 ??F) 36.7 ??C (98.1 ??F) TempSrc: Oral Oral Oral SpO2: 91% 91% 95% Weight: Height: ASSESSMENT/PLAN: Patient Active Problem List Diagnosis Schizoaffective disorder, bipolar type ([facility]) ([facility]) Diabetic neuropathy ([facility]) Type 2 diabetes mellitus with diabetic neuropathy, with long-term current use of insulin ([facility]) ([facility]) Hypertension associated with diabetes ([facility]) Amputation of toe of right foot ([facility]) ([facility]) Iron deficiency anemia Gastroesophageal reflux disease Hyperlipidemia associated with type 2 diabetes mellitus ([facility]) Dementia ([facility]) Schizoaffective disorder, bipolar type ([facility]) ([facility]) 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 2 diabetes mellitus ([facility]) ([facility]) Encounter for Medicare annual wellness exam Late onset Alzheimer's dementia without behavioral disturbance ([facility]) Volume overload Anemia Toe necrosis ([facility]) ([facility]) Physical deconditioning Left leg DVT ([facility]) ([facility]) Pulmonary nodule Retention of urine, unspecified Unspecified osteoarthritis, unspecified site Unsteadiness on feet Weakness Parkinsonism ([facility]) Wheezing Anemia in stage 4 chronic kidney disease ([facility]) Osteomyelitis of great toe of right foot ([facility]) ([facility]) Abnormal urinalysis Cellulitis of great toe of right foot BRENDA (acute kidney injury) ([facility]) ([facility]) Acute on chronic diastolic congestive heart failure ([facility]) ([facility]) Bibasilar consolidations Movement disorder Shortness of breath S NO new CV complaints, wants to know when she can go home Exam: Gen: Comfortable, NAD CVS: RRR, S1, S2 present, trace leg edema GI: Soft Non tender Chest: CTAB ASSESSMENT/PLAN: CKD contributing to volume overload - with acute on chronic kidney disease - managed by Nephrology CKD stage III with Brenda -nephrology is managing Acute on chronic diastolic heart failure - normal LV function , Nephro managing diuretics Elevated troponin due to renal dysfunction - does not represent ACS - nonischemic MPI recently Essential hypertension -BP stable Diabetes mellitus type 2 Right great toe ulcer with osteomyelitis - on antibiotic therapy as per Infectious Disease - normal TEO and TBI Iron deficiency anemia -Hb 7.6 - getting IV iron infusion William Velasquez MD, [facility], [facility], [facility] [phone] 12/15/2022 10:41 AM * Krishna Morgan MD - 12/15/2022 9:14 AM CDT Images from the original note were not included. Infectious Disease Sixto Chakraborty Admit Date: 12/06/2022 LOS: 9 Days Consulting physician:Bev Adames MD Reason for consult: osteomyelitis Interval Course No new events overnight New Symptoms Patient has no new symptoms, unchanged creatinine remains on diuresis, WBCs normalize ATBX Vanc/Flagyl Data Vitals: 12/15/22 0006 12/15/22 0042 12/15/22 0055 12/15/22 0426 BP: (!) 112/36 117/61 123/49 BP Location: Right arm Right arm Right arm Patient Position: Lying HOB 30 degrees Lying Pulse: 57 55 58 65 Resp: 18 18 Temp: 36.9 ??C (98.4 ??F) 36.9 ??C (98.5 ??F) TempSrc: Oral Oral SpO2: 91% 91% Weight: Height: Temp (24hrs), Av.8 ??C (98.2 ??F), Min:36.6 ??C (97.9 ??F), Max:36.9 ??C (98.5 ??F) Recent Labs Lab Units 12/15/22 0552 12/13/22 0436 12/11/22 2226 WBC K/cumm 10.4* 9.5 10.5* HEMOGLOBIN g/dL 7.8* 7.6* 8.3* HEMATOCRIT % 25.7* 24.7* 26.6* PLATELETS K/cumm 303 294 361 Recent Labs Lab Units 12/15/22 0553 12/14/22 0557 12/13/22 0436 BUN SERUM mg/dL 53* 56* 56* CREATININE mg/dL 2.51* 2.66* 2.64* Scheduled Meds:atorvastatin, 20 mg, oral, Nightly benztropine, 1.5 mg, oral, Nightly carvediloL, 6.25 mg, oral, BID with meals (bkfst, dinner) famotidine, 10 mg, oral, Daily ferric gluconate, 125 mg of elemental iron, intravenous, Once per day on Thu ferrous sulfate, 65 mg of elemental iron, oral, Daily with breakfast furosemide, 60 mg, oral, BID DIURETIC heparin, 5,000 Units, subcutaneous, Q8H SOL insulin glargine, 15 Units, subcutaneous, Nightly insulin lispro, 0-4 Units, subcutaneous, Nightly insulin lispro, 0-5 Units, subcutaneous, TID with meals insulin lispro, 7 Units, subcutaneous, TID with meals metOLazone, 2.5 mg, oral, BID DIURETIC metroNIDAZOLE, 500 mg, oral, TID pregabalin, 75 mg, oral, Nightly risperiDONE, 2 mg, oral, Nightly Continuous Infusions: PRN Meds:. albuterol HFA dextrose OR dextrose glucagon ondansetron polyethylene glycol Review of Systems: Gen: denies fevers, denies chills, denies sweats, denies unintentional weight loss HEENT: Denies sore throat, denies thrush Neck: Denies palpable lymph nodes, denies neck stiffness Cv: denies chest pain, denies palpitations Resp: Denies SOB, Denies orthopnea Gi: Denies abdominal pain, Denies diarrhea, denies n/v Extrem: Denies gross deformities, denies joint pain, denies myalgias Skin: Denies rashes, denies lesions Neuro: Denies weakness, denies paresthesias, denies memory loss Psych: denies depression, denies anxiety Objective: Vitals: 24hr Min/Max: Temp Min: 36.2 ??C (97.2 ??F) Max: 37 ??C (98.6 ??F) Pulse Min: 66 Max: 90 BP Min: 119/74 Max: 142/53 Resp Min: 12 Max: 22 SpO2 Min: 90 % Max: 99 % Most Recent : Vitals Vitals: 12/07/22 0000 12/07/22 0400 12/07/22 0827 12/07/22 1146 BP: 126/76 123/72 119/74 141/66 BP Location: Right arm Right arm Right arm Right arm Patient Position: Lying Lying Lying Lying Pulse: 90 69 75 70 Resp: Temp: 37 ??C (98.6 ??F) 36.4 ??C (97.6 ??F) 36.8 ??C (98.3 ??F) 36.7 ??C (98.1 ??F) TempSrc: Axillary Axillary Oral Oral SpO2: 90% 92% 92% 98% Weight: Height: Physical Exam: General appearance: alert, cooperative, no distress HEENT: (-)icterus, Oropharnyx is normal, NCAT Neck: No palpable LN Lungs: Course breath sounds and symmetric; minimal respiratory effort, no r/w/c Heart: regular rhythm, normal S1 and S2, no m/r/g Abdomen: soft without mass, non-tender, +bowel sounds, no HSM Skin: (-)new rashes, right great toe with dry gangrene. No drainage. Minimal erythema around the toe. MSK: no gross deformities, FROM Vascular: no Edema, Neuro: No focal deficits Psych: Appropriate mood and affect Impression: 1 x 1 cm ulceration to Tip of right great toe, dry wound bed, no odor, no drainage Lab/Radiology/Diagnostic Review: 12/07 chest x-ray FINDINGS: There is a tiny right effusion. The remainder of the lungs are clear. Heart not enlarged. Aortic atherosclerosis. No failure. The tip of a left PICC line is in the distal superior vena cava. Cultures 12/12 wound cultures right great toe Staph aureus 11/08 right toe culture with MRSA and mixed Gram-positive organisms Respiratory PCR negative 11/30 urine culture with clinically insignificant MRI Foot Right WO Contrast Result Date: 11/10/2022 There is soft tissue swelling involving the right great toe with a distal wound. There is are smallsites of erosion involving the great toe distal tuft with associated marrow edema extending into the distal phalanx base. No drainable fluid collection. There has been prior application of the 4th digit through the metatarsal neck. There is subcutaneous edema about the ankle and along the dorsum ofthe foot. Mild first metatarsophalangeal joint chondrosis. There is subacute on chronic denervationof intrinsic foot musculature. There is tendinopathy of the distal Achilles tendon. Impression: 1. Distal right great toe wound with osteomyelitis of the distal phalanx and small erosions of the distal tuft. Assessment: 1. Acute respiratory failure possibly secondary to CHF no clear-cut evidence of pneumonia 2. Right great toe ulcer with osteomyelitis patient is supposed to be on vanc and Flagyl through 12/23 3. Dementia 4. Acute kidney injury, improved 5. CHF/diabetes mellitus/schizophrenia 6. Bilateral pleural effusions Plan: Continue vanc and Flagyl to 12/23 Discuss with Nephrology about the vancomycin and renal insufficiency, Nephrology thinks it is related to diuretics and not vancomycin induced and recommended to continue 4. CBC, CMP, vanc level bi weekly faxed to [phone] 5. Okay to DC from ID perspective * Gill Gamboa MD - 12/14/2022 2:11 PM CDT General Medicine Progress Note Interval Events: This is a 72-year-old female with history of CHF, chronic kidney disease, osteomyelitis, diabetes, schizophrenia who came to the hospital with complaint of shortness a breath. Patient noted to be volume overloaded. Patient has now been transitioned to oral diuretics. Infectious Disease has been guiding IV antibiotics. Adjustments in IV antibiotics noted-cefepime now discontinued. Infectious Disease recommends continuing IV vancomycin/Flagyl until 12/23. As:-discharge planning remains underway. Anticipate returning home on home infusion-discharge orders are in-social service to help coordinate a safe and appropriate discharge.. I spoke to the patient's daughter today, Areli - [phone] Discharge planning discussed. Will have PT OT see patient tomorrow Subjective: Chief complaint: Shortness of breath. Patient resting comfortably. No new complaints at this time. Denies any pain. Objective: Vitals: 24hr Min/Max: Temp Min: 36.7 ??C (98 ??F) Max: 37.2 ??C (98.9 ??F) Pulse Min: 52 Max: 79 BP Min: 106/57 Max: 139/73 Resp Min: 17 Max: 20 SpO2 Min: 90 % Max: 97 % Most Recent: Vitals: 12/14/22 0423 12/14/22 0700 12/14/22 1025 12/14/22 1300 BP: 112/46 106/57 131/66 BP Location: Right arm Right arm Right arm Patient Position: HOB 30 degrees Lying Lying Pulse: 66 52 55 69 Resp: 20 18 18 Temp: 37 ??C (98.6 ??F) 36.8 ??C (98.3 ??F) 36.7 ??C (98 ??F) TempSrc: Oral Axillary Oral SpO2: 90% 91% 96% Weight: Height: Intake/Output Summary (Last 24 hours) at 12/14/2022 1659 Last data filed at 12/14/2022 1300 Gross per 24 hour Intake -- Output 1910 ml Net -1910 ml Physical Exam: Physical Exam GEN: Alert. NAD HENT: Normocephalic. Atraumatic. CVS: RRR CHEST: Clear bilaterally ABD: soft. ND EXT: no edema Lab/Radiology/Diagnostic Review: Reviewed. Recent Results (from the past 24 hour(s)) POCT glucose Collection Time: 12/13/22 9:24 PM Result Value Ref Range Glucose, POC 191 70 - 199 mg/dL Renal function panel Collection Time: 12/14/22 5:57 AM Result Value Ref Range Sodium 144 135 - 145 mmol/L Potassium, pl 4.3 3.3 - 4.9 mmol/L Chloride 113 (H) 97 - 110 mmol/L CO2 20 (L) 22 - 32 mmol/L Anion gap 11 2 - 15 mmol/L BUN 56 (H) 6 - 25 mg/dL Creatinine 2.66 (H) 0.60 - 1.10 mg/dL Glucose 154 70 - 199 mg/dL Calcium 8.7 8.5 - 10.3 mg/dL Phosphorus, pl 4.0 2.3 - 4.5 mg/dL Albumin 2.7 (L) 3.5 - 5.0 g/dL Magnesium Collection Time: 12/14/22 5:57 AM Result Value Ref Range Magnesium 2.5 1.4 - 2.5 mg/dL eGFR Collection Time: 12/14/22 5:57 AM Result Value Ref Range eGFR 18 mL/min/1.73 m2 POCT glucose Collection Time: 12/14/22 8:05 AM Result Value Ref Range Glucose, POC 128 70 - 199 mg/dL POCT glucose Collection Time: 12/14/22 12:34 PM Result Value Ref Range Glucose, POC 70 70 - 199 mg/dL Assessment and Plan: Principal Problem: Acute on chronic diastolic congestive heart failure ([facility]) ([facility]) Active Problems: Type 2 diabetes mellitus with diabetic neuropathy, with long-term current use of insulin ([facility]) ([facility]) Schizoaffective disorder, bipolar type ([facility]) ([facility]) 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 2 diabetes mellitus ([facility]) ([facility]) Late onset Alzheimer's dementia without behavioral disturbance ([facility]) Osteomyelitis of great toe of right foot ([facility]) ([facility]) BRENDA (acute kidney injury) ([facility]) ([facility]) Bibasilar consolidations Movement disorder Shortness of breath Acute hypoxemic respiratory failure. Respiratory status has been stable. Patient has continued to do well. Chronic diastolic congestive heart failure. Stable and compensated. Continue oral Lasix. Acute on chronic kidney disease stage 3. Creatinine is now 2.66. Remains stable. Continue to monitor closely. Type 2 diabetes. Continue Lantus 15 units q.h.s.. Monitor Accu-Cheks q.a.c. q.h.s. adjust with a low-dose sliding scale as needed. Essential hypertension continue amlodipine 10 milligrams daily. Right great toe ulcer with osteomyelitis. Plan to continue vancomycin/Flagyl until 12/23 Disposition: Discharge orders are in. Discharge planning remains underway. Social service to help coordinate a safe and appropriate discharge to home with home health and home infusion. Patient's daughter Areli updated today. Patient will return home to her daughter. My total encounter time on 12/14/2022 was 36 minutes which was spent in the activities documented inthe note. This includes time spent prior to the visit and after the visit in direct care of the patient. This time does not include time spent in any separately reportable services. Gill Gamboa MD Hospitalist [phone] 34:59 PM * Anil Wong MD - 12/14/2022 12:48 PM CDT Nephrology Daily Progress CSN# [id number] #: [id number] Phone#: [phone] #: [phone] Subjective Interval History: pt c/o persistent swelling/fluid retention. Objective Vitals: 24hr Min/Max: Temp Min: 36.8 ??C (98.2 ??F) Max: 37.2 ??C (98.9 ??F) Pulse Min: 52 Max: 79 BP Min: 106/57 Max: 140/72 Resp Min: 17 Max: 20 SpO2 Min: 90 % Max: 97 % Intake/Output Summary (Last 24 hours) at 12/14/2022 1248 Last data filed at 12/14/2022 0425 Gross per 24 hour Intake -- Output 1460 ml Net -1460 ml Wt Readings from Last 3 Encounters: 12/06/22 78.9 kg (173 lb 15.1 oz) 12/05/22 79.3 kg (174 lb 12.8 oz) 11/10/22 69.5 kg (153 lb 4.8 oz) Temp Av ??C (98.6 ??F) Min: 36.8 ??C (98.2 ??F) Max: 37.2 ??C (98.9 ??F) BP Min: 106/57 Max: 140/72 Pulse Av.4 Min: 52 Max: 79 Resp Av.4 Min: 17 Max: 20 SpO2 Av % Min: 90 % Max: 97 % Most Recent: Vitals: 12/14/22 1025 BP: Pulse: 55 Resp: Temp: SpO2: I/O last 2 completed shifts: In: - Out: 1460 [Urine:1460] No intake/output data recorded. Current Facility-Administered Medications Medication Dose Route Frequency Last Rate Last Admin albuterol HFA (PROVENTIL HFA,VENTOLIN HFA,PROAIR HFA) 90 mcg/actuation inhaler 2 puff 2 puff inhalation Q4H PRN (RT) amLODIPine (NORVASC) tablet 10 mg 10 mg oral Nightly 10 mg at 12/13/222120 atorvastatin (LIPITOR) tablet 20 mg 20 mg oral Nightly 20 mg at 12/13/222120 benztropine (COGENTIN) tablet 1.5 mg 1.5 mg oral Nightly 1.5 mg at 12/13/222120 carvediloL (COREG) tablet 6.25 mg 6.25 mg oral BID with meals (bkfst, dinner) 6.25 mg at 12/14/22927 dextrose oral liquid liquid 15 g 15 g oral Q15 Min PRN 15 g at 12/11/22 171 Or dextrose (D10W) 10% bolus 250 mL 250 mL intravenous Q15 Min PRN famotidine (PEPCID) tablet 10 mg 10 mg oral Daily 10 mg at 12/14/22927 ferric gluconate (FERRLECIT) 125 mg of elemental iron in sodium chloride 0.9% 100 mL IVPB 125 mg ofelemental iron intravenous Once per day on Thu 110 mL/hr at 12/12/22911 125 mg of elemental iron at 12/12/22911 ferrous sulfate delayed release tablet 65 mg of elemental iron 65 mg of elemental iron oral Daily with breakfast 65 mg of elemental iron at 12/14/22927 furosemide (LASIX) tablet 40 mg 40 mg oral BID DIURETIC 40 mg at 12/14/22927 glucagon injection 1 mg 1 mg intramuscular Q30 Min PRN heparin 5,000 unit/mL injection 5,000 Units 5,000 Units subcutaneous Q8H SOL 5,000 Units at 12/14/22606 insulin glargine (LANTUS, SEMGLEE) 100 unit/mL injection 15 Units 15 Units subcutaneous Nightly 15 Units at 12/13/222124 insulin lispro (HumaLOG, ADMELOG) 100 unit/mL injection 0-4 Units 0-4 Units subcutaneous Nightly insulin lispro (HumaLOG, ADMELOG) 100 unit/mL injection 0-5 Units 0-5 Units subcutaneous TID with meals 1 Units at 12/13/221715 insulin lispro (HumaLOG, ADMELOG) 100 unit/mL injection 7 Units 7 Units subcutaneous TID with meals7 Units at 12/14/22927 metroNIDAZOLE (FLAGYL) tablet 500 mg 500 mg oral TID 500 mg at 12/14/22606 ondansetron (ZOFRAN) injection 4 mg 4 mg intravenous Q6H PRN 4 mg at 12/12/222036 polyethylene glycol (MIRALAX) packet 17 g 17 g oral Daily PRN pregabalin (LYRICA) capsule 75 mg 75 mg oral Nightly 75 mg at 12/13/222120 risperiDONE (RisperDAL) tablet 2 mg 2 mg oral Nightly 2 mg at 12/13/222120 [START ON 12/15/2022] vancomycin 1,000 mg/200 mL in dextrose 5% (premix) 1,000 mg 1,000 mg intravenous Once Continuous Medications Medication Dose Last Rate Physical Exam: General Appearance: Alert, cooperative, no distress, appears stated age, well developed, well nourished Lungs: Clear to auscultation bilaterally, respirations unlabored Cardiovascular: Regular rate and rhythm, S1 and S2 normal, no rub or gallop Abdomen: Soft, non-tender, , non-distended Extremities: Extremities normal, 1+-2+ generalized edema Neurologic: Alert & oriented Lab/Radiology/Diagnostic Review: Recent Labs Lab Units 12/14/22 1234 12/14/22 0805 12/14/22 0557 12/13/22 0754 12/13/22 0436 12/12/22 0724 12/11/22 2226 SODIUM mmol/L -- -- 144 -- 143 -- 139 POTASSIUM PLASMA mmol/L -- -- 4.3 -- 3.9 -- 4.8 CHLORIDE mmol/L -- -- 113* -- 111* -- 109 CO2 mmol/L -- -- 20* -- 21* -- 17* BUN SERUM mg/dL -- -- 56* -- 56* -- 60* CREATININE mg/dL -- -- 2.66* -- 2.64* -- 2.33* [id number] mL/min/1.73 m2 -- -- 18 -- 19 -- 22 GLUCOSE mg/dL -- -- 154 -- 87 -- 188 POC GLUCOSE MONITOR mg/dL 70 < > -- < > -- < > -- CALCIUM mg/dL -- -- 8.7 -- 8.7 -- 8.9 ALBUMIN g/dL -- -- 2.7* -- 2.9* -- 2.9* PHOSPHORUS PLASMA mg/dL -- -- 4.0 -- 4.6* -- 4.1 < > = values in this interval not displayed. Additional Labs: Recent Labs Lab Units 12/13/22 0436 12/11/22 2226 12/11/22 0509 WBC K/cumm 9.5 10.5* 10.1* HEMOGLOBIN g/dL 7.6* 8.3* 7.8* HEMATOCRIT % 24.7* 26.6* 25.7* PLATELETS K/cumm 294 361 314 NEUTROS PCT % 61.7 69.9 60.4 LYMPHS PCT % 24.7 18.4 26.3 MONOS PCT % 9.7 8.4 9.6 EOS PCT % 2.9 2.2 2.6 Assessment/Plan CKD: good output. creat is little changed at 2.64 HTN: adequately controlled Edema: persistent. Will increase diuretic therapy. May need to hold amlodipine in view of severe fluid retention. Anemia Dyspnea: improved Hyperkalemia: resolved 7. Metabolic acidosis * Krishna Morgan MD - 12/14/2022 10:44 AM CDT Images from the original note were not included. Infectious Disease Sixto Chakraborty Admit Date: 12/06/2022 LOS: 8 Days Consulting physician:Bev Adames MD Reason for consult: osteomyelitis Interval Course No new events overnight New Symptoms Patient has no new symptoms, unchanged creatinine remains on diuresis, WBCs normalize ATBX Vanc/Flagyl Data Vitals: 12/14/22 0000 12/14/22 0423 12/14/22 0700 12/14/22 1025 BP: 139/73 112/46 106/57 BP Location: Right arm Right arm Patient Position: HOB 30 degrees Lying Pulse: 79 66 52 55 Resp: 17 20 18 Temp: 37.2 ??C (98.9 ??F) 37 ??C (98.6 ??F) 36.8 ??C (98.3 ??F) TempSrc: Oral Oral Axillary SpO2: 91% 90% 91% Weight: Height: Temp (24hrs), Av.9 ??C (98.5 ??F), Min:36.7 ??C (98.1 ??F), Max:37.2 ??C (98.9 ??F) Recent Labs Lab Units 12/13/22 0436 12/11/226 12/11/22 0509 WBC K/cumm 9.5 10.5* 10.1* HEMOGLOBIN g/dL 7.6* 8.3* 7.8* HEMATOCRIT % 24.7* 26.6* 25.7* PLATELETS K/cumm 294 361 314 Recent Labs Lab Units 12/14/22 0557 12/13/22 0436 12/11/226 BUN SERUM mg/dL 56* 56* 60* CREATININE mg/dL 2.66* 2.64* 2.33* Scheduled Meds:amLODIPine, 10 mg, oral, Nightly atorvastatin, 20 mg, oral, Nightly benztropine, 1.5 mg, oral, Nightly carvediloL, 6.25 mg, oral, BID with meals (bkfst, dinner) famotidine, 10 mg, oral, Daily ferric gluconate, 125 mg of elemental iron, intravenous, Once per day on Thu ferrous sulfate, 65 mg of elemental iron, oral, Daily with breakfast furosemide, 40 mg, oral, BID DIURETIC heparin, 5,000 Units, subcutaneous, Q8H SOL insulin glargine, 15 Units, subcutaneous, Nightly insulin lispro, 0-4 Units, subcutaneous, Nightly insulin lispro, 0-5 Units, subcutaneous, TID with meals insulin lispro, 7 Units, subcutaneous, TID with meals metroNIDAZOLE, 500 mg, oral, TID pregabalin, 75 mg, oral, Nightly risperiDONE, 2 mg, oral, Nightly [START ON 12/15/2022] vancomycin, 1,000 mg, intravenous, Once Continuous Infusions: PRN Meds:. albuterol HFA dextrose OR dextrose glucagon ondansetron polyethylene glycol Review of Systems: Gen: denies fevers, denies chills, denies sweats, denies unintentional weight loss HEENT: Denies sore throat, denies thrush Neck: Denies palpable lymph nodes, denies neck stiffness Cv: denies chest pain, denies palpitations Resp: Denies SOB, Denies orthopnea Gi: Denies abdominal pain, Denies diarrhea, denies n/v Extrem: Denies gross deformities, denies joint pain, denies myalgias Skin: Denies rashes, denies lesions Neuro: Denies weakness, denies paresthesias, denies memory loss Psych: denies depression, denies anxiety Objective: Vitals: 24hr Min/Max: Temp Min: 36.2 ??C (97.2 ??F) Max: 37 ??C (98.6 ??F) Pulse Min: 66 Max: 90 BP Min: 119/74 Max: 142/53 Resp Min: 12 Max: 22 SpO2 Min: 90 % Max: 99 % Most Recent : Vitals Vitals: 12/07/22 0000 12/07/22 0400 12/07/22 0827 12/07/22 1146 BP: 126/76 123/72 119/74 141/66 BP Location: Right arm Right arm Right arm Right arm Patient Position: Lying Lying Lying Lying Pulse: 90 69 75 70 Resp: 20 Temp: 37 ??C (98.6 ??F) 36.4 ??C (97.6 ??F) 36.8 ??C (98.3 ??F) 36.7 ??C (98.1 ??F) TempSrc: Axillary Axillary Oral Oral SpO2: 90% 92% 92% 98% Weight: Height: Physical Exam: General appearance: alert, cooperative, no distress HEENT: (-)icterus, Oropharnyx is normal, NCAT Neck: No palpable LN Lungs: Course breath sounds and symmetric; minimal respiratory effort, no r/w/c Heart: regular rhythm, normal S1 and S2, no m/r/g Abdomen: soft without mass, non-tender, +bowel sounds, no HSM Skin: (-)new rashes, right great toe with dry gangrene. No drainage. Minimal erythema around the toe. MSK: no gross deformities, FROM Vascular: no Edema, Neuro: No focal deficits Psych: Appropriate mood and affect Impression: 1 x 1 cm ulceration to Tip of right great toe, dry wound bed, no odor, no drainage Lab/Radiology/Diagnostic Review: 12/07 chest x-ray FINDINGS: There is a tiny right effusion. The remainder of the lungs are clear. Heart not enlarged. Aortic atherosclerosis. No failure. The tip of a left PICC line is in the distal superior vena cava. Cultures 12/12 wound cultures right great toe Staph aureus 11/08 right toe culture with MRSA and mixed Gram-positive organisms Respiratory PCR negative 11/30 urine culture with clinically insignificant MRI Foot Right WO Contrast Result Date: 11/10/2022 There is soft tissue swelling involving the right great toe with a distal wound. There is are smallsites of erosion involving the great toe distal tuft with associated marrow edema extending into the distal phalanx base. No drainable fluid collection. There has been prior application of the 4th digit through the metatarsal neck. There is subcutaneous edema about the ankle and along the dorsum ofthe foot. Mild first metatarsophalangeal joint chondrosis. There is subacute on chronic denervationof intrinsic foot musculature. There is tendinopathy of the distal Achilles tendon. Impression: 1. Distal right great toe wound with osteomyelitis of the distal phalanx and small erosions of the distal tuft. Assessment: 1. Acute respiratory failure possibly secondary to CHF no clear-cut evidence of pneumonia 2. Right great toe ulcer with osteomyelitis patient is supposed to be on vanc and Flagyl through 12/23 3. Dementia 4. Acute kidney injury, improved 5. CHF/diabetes mellitus/schizophrenia 6. Bilateral pleural effusions Plan: Continue vanc and Flagyl to 12/23 Discuss with Nephrology about the vancomycin and renal insufficiency, Nephrology thinks it is related to diuretics and not vancomycin induced and recommended to continue 4. CBC, CMP, vanc level bi weekly faxed to [phone] 5. Okay to DC from ID perspective * Meghann Coleman MD - 12/14/2022 10:21 AM CDT Cardiology Daily Progress SUBJECTIVE: No chest pain or SOB No new events Current Facility-Administered Medications Medication Dose Route Frequency Provider Last Rate Last Admin albuterol HFA (PROVENTIL HFA,VENTOLIN HFA,PROAIR HFA) 90 mcg/actuation inhaler 2 puff 2 puff inhalation Q4H PRN (RT) Robert Hernandez MD amLODIPine (NORVASC) tablet 10 mg 10 mg oral Nightly Robert Hernandez MD 10 mg at 12/13/222120 atorvastatin (LIPITOR) tablet 20 mg 20 mg oral Nightly Robert Hernandez MD 20 mg at 12/13/222120 benztropine (COGENTIN) tablet 1.5 mg 1.5 mg oral Nightly Robert Hernandez MD 1.5 mg at 12/13/222120 carvediloL (COREG) tablet 6.25 mg 6.25 mg oral BID with meals (bkfst, dinner) Isidro Hahn MD 6.25mg at 12/14/22927 dextrose oral liquid liquid 15 g 15 g oral Q15 Min PRN Robert Hernandez MD 15 g at Or dextrose (D10W) 10% bolus 250 mL 250 mL intravenous Q15 Min PRN Robert Hernandez MD famotidine (PEPCID) tablet 10 mg 10 mg oral Daily Robert Hernandez MD 10 mg at 12/14/22927 ferric gluconate (FERRLECIT) 125 mg of elemental iron in sodium chloride 0.9% 100 mL IVPB 125 mg ofelemental iron intravenous Once per day on Thu Jimbo Strauss MD 110 mL/hr at 12/12/22911 125 mg of elemental iron at 12/12/22911 ferrous sulfate delayed release tablet 65 mg of elemental iron 65 mg of elemental iron oral Daily with breakfast Darlyn Guzman MD 65 mg of elemental iron at 12/14/22927 furosemide (LASIX) tablet 40 mg 40 mg oral BID DIURETIC Bev Adames MD 40 mg at 12/14/22927 glucagon injection 1 mg 1 mg intramuscular Q30 Min PRN Robert Hernandez MD heparin 5,000 unit/mL injection 5,000 Units 5,000 Units subcutaneous Q8H SOL Robert Hernandez MD 5,000 Units at 12/14/22606 insulin glargine (LANTUS, SEMGLEE) 100 unit/mL injection 15 Units 15 Units subcutaneous Nightly Robert Hernandez MD 15 Units at 12/13/222124 insulin lispro (HumaLOG, ADMELOG) 100 unit/mL injection 0-4 Units 0-4 Units subcutaneous Nightly Robert Hernandez MD insulin lispro (HumaLOG, ADMELOG) 100 unit/mL injection 0-5 Units 0-5 Units subcutaneous TID with meals Robert Hernandez MD 1 Units at 12/13/22 1716 insulin lispro (HumaLOG, ADMELOG) 100 unit/mL injection 7 Units 7 Units subcutaneous TID with mealsRobert Hernandez MD 7 Units at 12/14/22 0928 metroNIDAZOLE (FLAGYL) tablet 500 mg 500 mg oral TID Krishna Morgan MD 500 mg at 12/14/22 06 ondansetron (ZOFRAN) injection 4 mg 4 mg intravenous Q6H PRN Marci Mcgregor NP 4 mg at 12/12/222036 polyethylene glycol (MIRALAX) packet 17 g 17 g oral Daily PRN Robert Hernandez MD pregabalin (LYRICA) capsule 75 mg 75 mg oral Nightly Robert Hernandez MD 75 mg at 12/13/222120 risperiDONE (RisperDAL) tablet 2 mg 2 mg oral Nightly Robert Hernandez MD 2 mg at 12/13/222120 [START ON 12/15/2022] vancomycin 1,000 mg/200 mL in dextrose 5% (premix) 1,000 mg 1,000 mg intravenous Once Krishna Morgan MD OBJECTIVE: Vitals: 12/13/22 2000 12/14/22 0000 12/14/22 0423 12/14/22 0700 BP: 124/76 139/73 112/46 106/57 BP Location: Right arm Right arm Patient Position: HOB 30 degrees Lying Pulse: 76 79 66 52 Resp: 18 17 20 18 Temp: 37.1 ??C (98.8 ??F) 37.2 ??C (98.9 ??F) 37 ??C (98.6 ??F) 36.8 ??C (98.3 ??F) TempSrc: Oral Oral Oral Axillary SpO2: 97% 91% 90% 91% Weight: Height: I/O last 2 completed shifts: In: - Out: 1460 [Urine:1460] No intake/output data recorded. General: No acute distress Neuro: Alert and oriented x 3, moves all extremities well HEENT: normocephalic, atraumatic, thyroid not enlarged. I do not appreciate JVD. Neck: There are nocarotid bruits. Chest: symmetric, stable. Lungs: symmetric, unlabored, clear to auscultation bilaterally Heart: regular rate & rhythm, no murmurs, rubs, or gallops Abdomen: soft, non-tender, non-distended, bowel sounds present Extremities: no LE edema, palpable peripheral pulses BL Neurologic: No focal deficits LABS: Recent Labs Lab Units 12/13/22 0436 WBC K/cumm 9.5 HEMOGLOBIN g/dL 7.6* HEMATOCRIT % 24.7* PLATELETS K/cumm 294 Lab Results Component Value Date SODIUM 144 12/14/2022 POTASSIUM 4.3 12/14/2022 CHLORIDE 113 (H) 12/14/2022 CO2 20 (L) 12/14/2022 ANIONGAP 11 12/14/2022 BUNSER 56 (H) 12/14/2022 CREATININE 2.66 (H) 12/14/2022 GLUCOSE 128 12/14/2022 CALCIUM 8.7 12/14/2022 ALBUMIN 2.7 (L) 12/14/2022 Lab Results Lab Value Date/Time TROPONINI <0.04 05/04/2014 1350 Lab Results Component Value Date CHOL 84 09/10/2021 TRIG 153 (H) 09/10/2021 HDL 33 (L) 09/10/2021 No results found for: BNP Lab Results Component Value Date IRON 26 (L) 11/30/2022 TIBC 140 (L) 11/30/2022 Lab Results Component Value Date VITB12 593 11/30/2022 Lab Results Component Value Date HGBA1C 7.1 (H) 11/30/2022 Lab Results Component Value Date TSH 1.52 09/02/2021 EKG: Results for orders placed during the hospital encounter of 12/06/22 ECG 12 lead Narrative Vent Rate: 68 bpm RR Interval: 873 msec MO Interval: 175 msec QRS Duration: 73 msec QT Interval: 422 msec QTC Interval: 440 msec P-R-T [place]: 98 - 20 - 20 degrees SINUS RHYTHM LOW QRS VOLTAGE IN PRECORDIAL LEADS [QRS DEFLECTION < 1.0 mV IN CHEST LEADS] BORDERLINE ECG Compared to previous ECG the low-voltage is new Electronically Signed By: Audie Gould MD, [facility] ASSESSMENT/PLAN: CKD contributing to volume overload - with acute on chronic kidney disease - managed by Nephrology CKD stage III with Brenda -nephrology is managing Acute on chronic diastolic heart failure - normal LV function , on p.o. diuretics as per Nephrology Elevated troponin due to renal dysfunction - does not represent ACS -nonischemic MPI recently Essential hypertension -BP stable Diabetes mellitus type 2 Right great toe ulcer with osteomyelitis - on antibiotic therapy as per Infectious Disease - normal TEO and TBI Iron deficiency anemia -Hb 7.6 - getting IV iron infusion. Meghann Coleman MD,[facility] 12/14/2022 10:21 AM * Anil Wong MD - 12/13/2022 2:15 PM CDT Nephrology Daily Progress [facility]# [id number] #: [id number] Phone#: [phone] #: 1950 Subjective Chief complaint of Interval History: feels well, still some what confused, poor po intake Objective Vitals: 24hr Min/Max: Temp Min: 36.6 ??C (97.8 ??F) Max: 37.1 ??C (98.7 ??F) Pulse Min: 64 Max: 82 BP Min: 119/62 Max: 149/70 Resp Min: 16 Max: 20 SpO2 Min: 94 % Max: 97 % Intake/Output Summary (Last 24 hours) at 12/13/2022 1415 Last data filed at 12/13/2022 0510 Gross per 24 hour Intake -- Output 2175 ml Net -2175 ml Wt Readings from Last 3 Encounters: 12/06/22 78.9 kg (173 lb 15.1 oz) 12/05/22 79.3 kg (174 lb 12.8 oz) 11/10/22 69.5 kg (153 lb 4.8 oz) Temp Av.8 ??C (98.3 ??F) Min: 36.6 ??C (97.8 ??F) Max: 37.1 ??C (98.7 ??F) BP Min: 119/62 Max: 149/70 Pulse Av Min: 64 Max: 82 Resp Av.1 Min: 16 Max: 20 SpO2 Av.7 % Min: 94 % Max: 97 % Most Recent: Vitals: 12/13/22 1100 BP: 132/68 Pulse: 67 Resp: 18 Temp: 36.7 ??C (98.1 ??F) SpO2: 95% I/O last 2 completed shifts: In: 571 [P.O.:471; IV Piggyback:100] Out: 2175 [Urine:2175] No intake/output data recorded. Current Facility-Administered Medications Medication Dose Route Frequency Last Rate Last Admin albuterol HFA (PROVENTIL HFA,VENTOLIN HFA,PROAIR HFA) 90 mcg/actuation inhaler 2 puff 2 puff inhalation Q4H PRN (RT) amLODIPine (NORVASC) tablet 10 mg 10 mg oral Nightly 10 mg at 12/12/222002 atorvastatin (LIPITOR) tablet 20 mg 20 mg oral Nightly 20 mg at 12/12/222002 benztropine (COGENTIN) tablet 1.5 mg 1.5 mg oral Nightly 1.5 mg at 12/12/222006 carvediloL (COREG) tablet 6.25 mg 6.25 mg oral BID with meals (bkfst, dinner) 6.25 mg at 12/13/22 0916 dextrose oral liquid liquid 15 g 15 g oral Q15 Min PRN 15 g at 12/11/22 1710 Or dextrose (D10W) 10% bolus 250 mL 250 mL intravenous Q15 Min PRN famotidine (PEPCID) tablet 10 mg 10 mg oral Daily 10 mg at 12/13/22 0916 ferric gluconate (FERRLECIT) 125 mg of elemental iron in sodium chloride 0.9% 100 mL IVPB 125 mg ofelemental iron intravenous Once per day on Thu 110 mL/hr at 12/12/22 0912 125 mg of elemental iron at 12/12/22 0912 ferrous sulfate delayed release tablet 65 mg of elemental iron 65 mg of elemental iron oral Daily with breakfast 65 mg of elemental iron at 12/13/22 0916 furosemide (LASIX) tablet 40 mg 40 mg oral BID DIURETIC 40 mg at 12/13/22 0916 glucagon injection 1 mg 1 mg intramuscular Q30 Min PRN heparin 5,000 unit/mL injection 5,000 Units 5,000 Units subcutaneous Q8H SOL 5,000 Units at 12/13/22 0505 insulin glargine (LANTUS, SEMGLEE) 100 unit/mL injection 15 Units 15 Units subcutaneous Nightly 15 Units at 12/12/222009 insulin lispro (HumaLOG, ADMELOG) 100 unit/mL injection 0-4 Units 0-4 Units subcutaneous Nightly insulin lispro (HumaLOG, ADMELOG) 100 unit/mL injection 0-5 Units 0-5 Units subcutaneous TID with meals 1 Units at 12/12/22 09 insulin lispro (HumaLOG, ADMELOG) 100 unit/mL injection 7 Units 7 Units subcutaneous TID with meals7 Units at 12/13/22 09 metroNIDAZOLE (FLAGYL) tablet 500 mg 500 mg oral TID 500 mg at 12/13/22 050 ondansetron (ZOFRAN) injection 4 mg 4 mg intravenous Q6H PRN 4 mg at 12/12/222036 polyethylene glycol (MIRALAX) packet 17 g 17 g oral Daily PRN pregabalin (LYRICA) capsule 75 mg 75 mg oral Nightly 75 mg at 12/12/222002 risperiDONE (RisperDAL) tablet 2 mg 2 mg oral Nightly 2 mg at 12/12/222006 [START ON 12/15/2022] vancomycin 1,000 mg/200 mL in dextrose 5% (premix) 1,000 mg 1,000 mg intravenous Once Continuous Medications Medication Dose Last Rate Physical Exam: General Appearance: Alert, cooperative, no distress, appears stated age, well developed, well nourished Lungs: Clear to auscultation bilaterally, respirations unlabored Cardiovascular: Regular rate and rhythm, S1 and S2 normal, no rub or gallop Abdomen: Soft, non-tender, , non-distended Extremities: Extremities normal, +1 LE edema Neurologic: Alert & oriented Lab/Radiology/Diagnostic Review: Recent Labs Lab Units 12/13/22 1131 12/13/22 0754 12/13/22 0436 12/12/22 0724 12/11/22 2226 12/11/22 0811 12/11/22 0509 SODIUM mmol/L -- -- 143 -- 139 -- 144 POTASSIUM PLASMA mmol/L -- -- 3.9 -- 4.8 -- 4.5 CHLORIDE mmol/L -- -- 111* -- 109 -- 112* CO2 mmol/L -- -- 21* -- 17* -- 19* BUN SERUM mg/dL -- -- 56* -- 60* -- 67* CREATININE mg/dL -- -- 2.64* -- 2.33* -- 2.62* [id number] mL/min/1.73 m2 -- -- 19 -- 22 -- 19 GLUCOSE mg/dL -- -- 87 -- 188 -- 83 POC GLUCOSE MONITOR mg/dL 105 < > -- < > -- < > -- CALCIUM mg/dL -- -- 8.7 -- 8.9 -- 8.8 ALBUMIN g/dL -- -- 2.9* -- 2.9* -- 3.0* PHOSPHORUS PLASMA mg/dL -- -- 4.6* -- 4.1 -- 4.9* < > = values in this interval not displayed. Additional Labs: Recent Labs Lab Units 12/13/22 0436 12/11/22 2226 12/11/22 0509 WBC K/cumm 9.5 10.5* 10.1* HEMOGLOBIN g/dL 7.6* 8.3* 7.8* HEMATOCRIT % 24.7* 26.6* 25.7* PLATELETS K/cumm 294 361 314 NEUTROS PCT % 61.7 69.9 60.4 LYMPHS PCT % 24.7 18.4 26.3 MONOS PCT % 9.7 8.4 9.6 EOS PCT % 2.9 2.2 2.6 Assessment/Plan CKD: good output. creat is slightly higher at 2.64 HTN: adequately controlled Edema Anemia Dyspnea: improved Hyperkalemia: mild. 7. Tremors 8. Metabolic acidosis * Gill Gamboa MD - 12/13/2022 11:43 AM CDT General Medicine Progress Note Interval Events: This is a 72-year-old female with history of CHF, chronic kidney disease, osteomyelitis, diabetes, schizophrenia who came to the hospital with complaint of shortness a breath. Patient noted to be volume overloaded. Patient has now been transitioned to oral diuretics. Infectious Disease has been guiding IV antibiotics. Adjustments in IV antibiotics noted-cefepime now discontinued. Plan to continue vancomycin/Flagyl until 12/23. At this time discharge planning is currently underway. Home health and home infusion orders signed. Await discharge planning Subjective: Chief complaint: Shortness of breath. Patient seen in her room. Resting comfortably. No new complaints Objective: Vitals: 24hr Min/Max: Temp Min: 36.4 ??C (97.6 ??F) Max: 37.1 ??C (98.7 ??F) Pulse Min: 61 Max: 82 BP Min: 119/62 Max: 149/70 Resp Min: 16 Max: 20 SpO2 Min: 94 % Max: 98 % Most Recent: Vitals: 12/13/22 0000 12/13/22 0400 12/13/22 0700 12/13/22 0730 BP: 119/62 120/74 120/68 BP Location: Right arm Patient Position: Pulse: 76 81 82 64 Resp: 18 19 20 Temp: 37.1 ??C (98.7 ??F) 36.9 ??C (98.4 ??F) 36.8 ??C (98.2 ??F) TempSrc: Oral Oral Oral SpO2: 95% 94% 96% Weight: Height: Intake/Output Summary (Last 24 hours) at 12/13/2022 1149 Last data filed at 12/13/2022 0510 Gross per 24 hour Intake 240 ml Output 2175 ml Net -1935 ml Physical Exam: Physical Exam GEN: Alert. NAD HENT: Normocephalic. Atraumatic. CVS: RRR CHEST: Clear bilaterally ABD: soft. ND EXT: no edema Lab/Radiology/Diagnostic Review: Reviewed. Recent Results (from the past 24 hour(s)) POCT glucose Collection Time: 12/12/22 5:03 PM Result Value Ref Range Glucose, POC 166 70 - 199 mg/dL POCT glucose Collection Time: 12/12/22 8:09 PM Result Value Ref Range Glucose, POC 135 70 - 199 mg/dL CBC with auto differential Collection Time: 12/13/22 4:36 AM Result Value Ref Range WBC 9.5 3.8 - 9.9 K/cumm Hgb 7.6 (L) 11.9 - 15.5 g/dL Hct 24.7 (L) 35.6 - 45.5 % Plt 294 150 - 400 K/cumm MPV 11.1 9.1 - 12.3 fL RBC 2.55 (L) 3.90 - 5.20 M/cumm MCV 96.9 (H) 81.3 - 96.4 fL MCH 29.8 27.1 - 33.3 pg MCHC 30.8 (L) 32.3 - 35.7 g/dL RDW CV 16.7 (H) 11.1 - 14.9 % RDW SD 58.4 (H) 35.7 - 48.1 fL NRBC abs 0.06 (H) 0.00 - 0.01 K/cumm Renal function panel Collection Time: 12/13/22 4:36 AM Result Value Ref Range Sodium 143 135 - 145 mmol/L Potassium, pl 3.9 3.3 - 4.9 mmol/L Chloride 111 (H) 97 - 110 mmol/L CO2 21 (L) 22 - 32 mmol/L Anion gap 11 2 - 15 mmol/L BUN 56 (H) 6 - 25 mg/dL Creatinine 2.64 (H) 0.60 - 1.10 mg/dL Glucose 87 70 - 199 mg/dL Calcium 8.7 8.5 - 10.3 mg/dL Phosphorus, pl 4.6 (H) 2.3 - 4.5 mg/dL Albumin 2.9 (L) 3.5 - 5.0 g/dL Magnesium Collection Time: 12/13/22 4:36 AM Result Value Ref Range Magnesium 2.4 1.4 - 2.5 mg/dL Vancomycin level random Collection Time: 12/13/22 4:36 AM Result Value Ref Range Vancomycin random 22.9 mcg/mL Differential, auto Collection Time: 12/13/22 4:36 AM Result Value Ref Range Neutrophil abs 5.9 1.7 - 6.5 K/cumm Imm gran abs 0.1 0.0 - 0.1 K/cumm Lymphocyte abs 2.4 0.8 - 3.3 K/cumm Monocyte abs 0.9 (H) 0.2 - 0.8 K/cumm Eosinophil abs 0.3 0.0 - 0.5 K/cumm Basophil abs 0.1 0.0 - 0.1 K/cumm Neutrophil pct 61.7 % Imm gran pct 0.5 % Lymphocyte pct 24.7 % Monocyte pct 9.7 % Eosinophil pct 2.9 % Basophil pct 0.5 % eGFR Collection Time: 12/13/22 4:36 AM Result Value Ref Range eGFR 19 mL/min/1.73 m2 POCT glucose Collection Time: 12/13/22 7:54 AM Result Value Ref Range Glucose, POC 107 70 - 199 mg/dL POCT glucose Collection Time: 12/13/22 11:31 AM Result Value Ref Range Glucose, POC 105 70 - 199 mg/dL Assessment and Plan: Principal Problem: Acute on chronic diastolic congestive heart failure ([facility]) ([facility]) Active Problems: Type 2 diabetes mellitus with diabetic neuropathy, with long-term current use of insulin ([facility]) ([facility]) Schizoaffective disorder, bipolar type ([facility]) ([facility]) 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 2 diabetes mellitus ([facility]) ([facility]) Late onset Alzheimer's dementia without behavioral disturbance ([facility]) Osteomyelitis of great toe of right foot ([facility]) ([facility]) BRENDA (acute kidney injury) ([facility]) ([facility]) Bibasilar consolidations Movement disorder Acute hypoxemic respiratory failure. Respiratory status stable. Patient is currently stable and compensated Acute on chronic diastolic congestive heart failure. Continue with oral Lasix 40 mg b.i.d.. Acute on chronic kidney disease stage 3. BUN/creatinine stable. Type 2 diabetes. Continue Lantus 15 units q.h.s.. Monitor Accu-Cheks q.a.c. q.h.s. adjust with a low-dose sliding scale as needed. Essential hypertension continue amlodipine 10 milligrams daily. Right great toe ulcer with osteomyelitis. Plan to continue vancomycin/Flagyl until 12/23 Disposition: Home health orders and home infusion orders have been signed. Await discharge planning. My total encounter time on 12/13/2022 was 36 minutes which was spent in the activities documented inthe note. This includes time spent prior to the visit and after the visit in direct care of the patient. This time does not include time spent in any separately reportable services. Gill Gamboa MD Hospitalist [phone] 1:49 AM * García Meza MD - 12/13/2022 10:12 AM CDT Daily Progress SUBJECTIVE: Ms. Chakraborty awake and alert in bed Denies sob or cp Current Facility-Administered Medications Medication Dose Route Frequency Provider Last Rate Last Admin albuterol HFA (PROVENTIL HFA,VENTOLIN HFA,PROAIR HFA) 90 mcg/actuation inhaler 2 puff 2 puff inhalation Q4H PRN (RT) Robert Hernandez MD amLODIPine (NORVASC) tablet 10 mg 10 mg oral Nightly Robert Hernandez MD 10 mg at atorvastatin (LIPITOR) tablet 20 mg 20 mg oral Nightly Robert Hernandez MD 20 mg at 12/12/222002 benztropine (COGENTIN) tablet 1.5 mg 1.5 mg oral Nightly Robert Hernandez MD 1.5 mg at 12/12/22 2007 carvediloL (COREG) tablet 6.25 mg 6.25 mg oral BID with meals (bkfst, dinner) Isidro Hahn MD 6.25mg at 12/13/22915 dextrose oral liquid liquid 15 g 15 g oral Q15 Min PRN Robert Hernandez MD 15 g at Or dextrose (D10W) 10% bolus 250 mL 250 mL intravenous Q15 Min PRN Robert Hernandez MD famotidine (PEPCID) tablet 10 mg 10 mg oral Daily Robert Hernandez MD 10 mg at 12/13/22915 ferric gluconate (FERRLECIT) 125 mg of elemental iron in sodium chloride 0.9% 100 mL IVPB 125 mg ofelemental iron intravenous Once per day on Thu Jimbo Strauss MD 110 mL/hr at 12/12/22911 125 mg of elemental iron at 06/23/23 0912 ferrous sulfate delayed release tablet 65 mg of elemental iron 65 mg of elemental iron oral Daily with breakfast Darlyn Guzman MD 65 mg of elemental iron at 12/13/22 0916 furosemide (LASIX) tablet 40 mg 40 mg oral BID DIURETIC Bev Adames MD 40 mg at 12/13/22 0916 glucagon injection 1 mg 1 mg intramuscular Q30 Min PRN Robert Hernandez MD heparin 5,000 unit/mL injection 5,000 Units 5,000 Units subcutaneous Q8H SOL Robert Hernandez MD 5,000 Units at 12/13/22 0505 insulin glargine (LANTUS, SEMGLEE) 100 unit/mL injection 15 Units 15 Units subcutaneous Nightly Robert Hernandez MD 15 Units at 12/12/222009 insulin lispro (HumaLOG, ADMELOG) 100 unit/mL injection 0-4 Units 0-4 Units subcutaneous Nightly Robert Hernandez MD insulin lispro (HumaLOG, ADMELOG) 100 unit/mL injection 0-5 Units 0-5 Units subcutaneous TID with meals Robert Hernandez MD 1 Units at 12/12/22 0904 insulin lispro (HumaLOG, ADMELOG) 100 unit/mL injection 7 Units 7 Units subcutaneous TID with mealsTaRobert sanchez MD 7 Units at 12/13/22 09 metroNIDAZOLE (FLAGYL) tablet 500 mg 500 mg oral TID Krishna Morgan MD 500 mg at 12/13/22504 ondansetron (ZOFRAN) injection 4 mg 4 mg intravenous Q6H PRN Marci Mcgregor NP 4 mg at 12/12/222036 polyethylene glycol (MIRALAX) packet 17 g 17 g oral Daily PRN Robert Hernandez MD pregabalin (LYRICA) capsule 75 mg 75 mg oral Nightly Robert Hernandez MD 75 mg at 12/12/222002 risperiDONE (RisperDAL) tablet 2 mg 2 mg oral Nightly Robert Hernandez MD 2 mg at 12/12/222006 [START ON 12/15/2022] vancomycin 1,000 mg/200 mL in dextrose 5% (premix) 1,000 mg 1,000 mg intravenous Once Krishna Morgan MD OBJECTIVE: Vitals: 12/12/22 2010 12/13/22 0000 12/13/22 0400 12/13/22 0700 BP: 149/70 119/62 120/74 120/68 BP Location: Right arm Right arm Patient Position: Sitting Pulse: 70 76 81 82 Resp: 16 18 19 20 Temp: 36.7 ??C (98.1 ??F) 37.1 ??C (98.7 ??F) 36.9 ??C (98.4 ??F) 36.8 ??C (98.2 ??F) TempSrc: Oral Oral Oral Oral SpO2: 97% 95% 94% 96% Weight: Height: I/O last 2 completed shifts: In: 571 [P.O.:471; IV Piggyback:100] Out: 2175 [Urine:2175] No intake/output data recorded. General: No acute distress Neuro: Alert and oriented x 3, moves all extremities well HEENT: normocephalic, atraumatic, thyroid not enlarged. I do not appreciate JVD. Neck: There are nocarotid bruits. Chest: symmetric, stable. Lungs: symmetric, unlabored, clear to auscultation bilaterally Heart: regular rate & rhythm, no murmurs, rubs, or gallops Abdomen: soft, non-tender, non-distended, bowel sounds present Extremities: no LE edema, palpable peripheral pulses BL Neurologic: No focal deficits LABS: Recent Labs Lab Units 12/13/22 0436 WBC K/cumm 9.5 HEMOGLOBIN g/dL 7.6* HEMATOCRIT % 24.7* PLATELETS K/cumm 294 Lab Results Component Value Date SODIUM 143 12/13/2022 POTASSIUM 3.9 12/13/2022 CHLORIDE 111 (H) 12/13/2022 CO2 21 (L) 12/13/2022 ANIONGAP 11 12/13/2022 BUNSER 56 (H) 12/13/2022 CREATININE 2.64 (H) 12/13/2022 GLUCOSE 107 12/13/2022 CALCIUM 8.7 12/13/2022 ALBUMIN 2.9 (L) 12/13/2022 Lab Results Lab Value Date/Time TROPONINI <0.04 05/04/2014 1350 Lab Results Component Value Date CHOL 84 09/10/2021 TRIG 153 (H) 09/10/2021 HDL 33 (L) 09/10/2021 No results found for: BNP Lab Results Component Value Date IRON 26 (L) 11/30/2022 TIBC 140 (L) 11/30/2022 Lab Results Component Value Date VITB12 593 11/30/2022 Lab Results Component Value Date HGBA1C 7.1 (H) 11/30/2022 Lab Results Component Value Date TSH 1.52 09/02/2021 EKG: Results for orders placed during the hospital encounter of 12/06/22 ECG 12 lead Narrative Vent Rate: 68 bpm RR Interval: 873 msec MO Interval: 175 msec QRS Duration: 73 msec QT Interval: 422 msec QTC Interval: 440 msec P-R-T [place]: 98 - 20 - 20 degrees SINUS RHYTHM LOW QRS VOLTAGE IN PRECORDIAL LEADS [QRS DEFLECTION < 1.0 mV IN CHEST LEADS] BORDERLINE ECG Compared to previous ECG the low-voltage is new Electronically Signed By: Audie Gould MD, [facility] ASSESSMENT/PLAN: CKD contributing to volume overload - with acute on chronic kidney disease - managed by Nephrology CKD stage III with Brenda nephrology is managing Acute on chronic diastolic heart failure - normal LV function , on p.o. diuretics as per Nephrology Elevated troponin due to renal dysfunction does not represent ACS nonischemic MPI recently Essential hypertension well controlled Diabetes mellitus type 2 Right great toe ulcer with osteomyelitis - on antibiotic therapy as per Infectious Disease - normal TEO and TBI Iron deficiency anemia getting IV iron infusion. García Meza MD [facility] 12/13/2022 10:13 AM * Krishna Morgan MD - 12/13/2022 9:54 AM CDT Images from the original note were not included. Infectious Disease Sixto Chakraborty Admit Date: 12/06/2022 LOS: 7 Days Consulting physician:Bev Adames MD Reason for consult: osteomyelitis Interval Course No new events overnight New Symptoms Patient has no new symptoms, inc creatinine after inc in diuresis, WBCs normalize ATBX Vanc/Flagyl Data Vitals: 12/12/22200912/13/22 0000 12/13/22 0400 12/13/22 0700 BP: 149/70 119/62 120/74 120/68 BP Location: Right arm Right arm Patient Position: Sitting Pulse: 70 76 81 82 Resp: 16 18 19 20 Temp: 36.7 ??C (98.1 ??F) 37.1 ??C (98.7 ??F) 36.9 ??C (98.4 ??F) 36.8 ??C (98.2 ??F) TempSrc: Oral Oral Oral Oral SpO2: 97% 95% 94% 96% Weight: Height: Temp (24hrs), Av.8 ??C (98.2 ??F), Min:36.4 ??C (97.6 ??F), Max:37.1 ??C (98.7 ??F) Recent Labs Lab Units 12/13/2243512/11/22222512/11/22 0509 WBC K/cumm 9.5 10.5* 10.1* HEMOGLOBIN g/dL 7.6* 8.3* 7.8* HEMATOCRIT % 24.7* 26.6* 25.7* PLATELETS K/cumm 294 361 314 Recent Labs Lab Units 12/13/2243512/11/22222512/11/22 0509 BUN SERUM mg/dL 56* 60* 67* CREATININE mg/dL 2.64* 2.33* 2.62* Scheduled Meds:amLODIPine, 10 mg, oral, Nightly atorvastatin, 20 mg, oral, Nightly benztropine, 1.5 mg, oral, Nightly carvediloL, 6.25 mg, oral, BID with meals (bkfst, dinner) famotidine, 10 mg, oral, Daily ferric gluconate, 125 mg of elemental iron, intravenous, Once per day on Thu ferrous sulfate, 65 mg of elemental iron, oral, Daily with breakfast furosemide, 40 mg, oral, BID DIURETIC heparin, 5,000 Units, subcutaneous, Q8H SOL insulin glargine, 15 Units, subcutaneous, Nightly insulin lispro, 0-4 Units, subcutaneous, Nightly insulin lispro, 0-5 Units, subcutaneous, TID with meals insulin lispro, 7 Units, subcutaneous, TID with meals metroNIDAZOLE, 500 mg, oral, TID pregabalin, 75 mg, oral, Nightly risperiDONE, 2 mg, oral, Nightly [START ON 12/15/2022] vancomycin, 1,000 mg, intravenous, Once Continuous Infusions: PRN Meds:. albuterol HFA dextrose OR dextrose glucagon ondansetron polyethylene glycol Review of Systems: Gen: denies fevers, denies chills, denies sweats, denies unintentional weight loss HEENT: Denies sore throat, denies thrush Neck: Denies palpable lymph nodes, denies neck stiffness Cv: denies chest pain, denies palpitations Resp: Denies SOB, Denies orthopnea Gi: Denies abdominal pain, Denies diarrhea, denies n/v Extrem: Denies gross deformities, denies joint pain, denies myalgias Skin: Denies rashes, denies lesions Neuro: Denies weakness, denies paresthesias, denies memory loss Psych: denies depression, denies anxiety Objective: Vitals: 24hr Min/Max: Temp Min: 36.2 ??C (97.2 ??F) Max: 37 ??C (98.6 ??F) Pulse Min: 66 Max: 90 BP Min: 119/74 Max: 142/53 Resp Min: 12 Max: 22 SpO2 Min: 90 % Max: 99 % Most Recent : Vitals Vitals: 12/07/22 0000 12/07/22 0400 12/07/22 0827 12/07/22 1146 BP: 126/76 123/72 119/74 141/66 BP Location: Right arm Right arm Right arm Right arm Patient Position: Lying Lying Lying Lying Pulse: 90 69 75 70 Resp: Temp: 37 ??C (98.6 ??F) 36.4 ??C (97.6 ??F) 36.8 ??C (98.3 ??F) 36.7 ??C (98.1 ??F) TempSrc: Axillary Axillary Oral Oral SpO2: 90% 92% 92% 98% Weight: Height: Physical Exam: General appearance: alert, cooperative, no distress HEENT: (-)icterus, Oropharnyx is normal, NCAT Neck: No palpable LN Lungs: Course breath sounds and symmetric; minimal respiratory effort, no r/w/c Heart: regular rhythm, normal S1 and S2, no m/r/g Abdomen: soft without mass, non-tender, +bowel sounds, no HSM Skin: (-)new rashes, right great toe with dry gangrene. No drainage. Minimal erythema around the toe. MSK: no gross deformities, FROM Vascular: no Edema, Neuro: No focal deficits Psych: Appropriate mood and affect Impression: 1 x 1 cm ulceration to Tip of right great toe, dry wound bed, no odor, no drainage Lab/Radiology/Diagnostic Review: 12/07 chest x-ray FINDINGS: There is a tiny right effusion. The remainder of the lungs are clear. Heart not enlarged. Aortic atherosclerosis. No failure. The tip of a left PICC line is in the distal superior vena cava. Cultures 12/12 wound cultures right great toe Staph aureus 11/08 right toe culture with MRSA and mixed Gram-positive organisms Respiratory PCR negative 11/30 urine culture with clinically insignificant MRI Foot Right WO Contrast Result Date: 11/10/2022 There is soft tissue swelling involving the right great toe with a distal wound. There is are smallsites of erosion involving the great toe distal tuft with associated marrow edema extending into the distal phalanx base. No drainable fluid collection. There has been prior application of the 4th digit through the metatarsal neck. There is subcutaneous edema about the ankle and along the dorsum ofthe foot. Mild first metatarsophalangeal joint chondrosis. There is subacute on chronic denervationof intrinsic foot musculature. There is tendinopathy of the distal Achilles tendon. Impression: 1. Distal right great toe wound with osteomyelitis of the distal phalanx and small erosions of the distal tuft. Assessment: 1. Acute respiratory failure possibly secondary to CHF no clear-cut evidence of pneumonia 2. Right great toe ulcer with osteomyelitis patient is supposed to be on vanc and Flagyl through 12/23 3. Dementia 4. Acute kidney injury, improved 5. CHF/diabetes mellitus/schizophrenia 6. Bilateral pleural effusions Plan: Continue vanc and Flagyl to 12/23 Discuss with Nephrology about the vancomycin and renal insufficiency, Nephrology thinks it is related to diuretics and not vancomycin induced and recommended to continue 4. CBC, CMP, vanc level bi weekly faxed to [phone] 5. Okay to DC from ID perspective * Adryan Thomas RPh - 12/13/2022 8:12 AM CDT Pharmacokinetic Consult - Vancomycin Dosing Sixto Chakraborty is a 72 y.o. female who has been consulted for vancomycin dosing for bone/joint infection. Relevant clinical data and objective history reviewed: Creatinine Date Value Ref Range Status 12/13/2022 2.64 (H) 0.60 - 1.10 mg/dL Final BUN Date Value Ref Range Status 12/13/2022 56 (H) 6 - 25 mg/dL Final Estimated Creatinine Clearance: 15.2 mL/min (A) (by C-G 65 yr and older- minimum SCr 0.8 based on SCr of 2.64 mg/dL (H)). Lab Results Component Value Date/Time WBC 9.5 12/13/2022 04:36 AM HGB 7.6 (L) 12/13/2022 04:36 AM HCT 24.7 (L) 12/13/2022 04:36 AM MCV 96.9 (H) 12/13/2022 04:36 AM LABPLAT 294 12/13/2022 04:36 AM No lab exists for component: LACTATEWB Temp Readings from Last 3 Encounters: 12/13/22 36.9 ??C (98.4 ??F) (Oral) 12/05/22 37 ??C (98.6 ??F) (Oral) 11/13/22 36.7 ??C (98.1 ??F) (Oral) Patient Weight 12/06/22 78.9 kg (173 lb 15.1 oz) Assessment Baseline culture/source/susceptibility: 11/08 wound MRSA Other antibiotics ordered include: Metronidazole Dialysis Patient: Not at this time The patient has been receiving vancomycin 1250 mg once. Vancomycin random Date Value Ref Range Status 12/13/2022 22.9 mcg/mL Final Comment: Interpretive Data No reference ranges have been established for random drug levels. Current Interpretive Data was last revised on 2020. Plan Will redose vancomycin 1000mg x1 on 12/15 at 0600. Next vancomycin random level ordered to be drawn 12/15/22 at 0500. Aim to initiate q 48 h dosing pending that level. Pharmacy will continue to follow the patient???s culture results and clinical progress daily. Day 6 of therapy. Adryan Thomas, Pharm.D, BCPS * Krishna Morgan MD - 12/12/2022 5:12 PM CDT Images from the original note were not included. Infectious Disease Sixto Chakraborty Admit Date: 12/06/2022 LOS: 6 Days Consulting physician:Bev Adames MD Reason for consult: osteomyelitis Interval Course No new events overnight New Symptoms Patient has no new symptoms, improved creatinine ATBX Vanc/Flagyl Data Vitals: 12/12/22 0824 12/12/22 0900 12/12/22 1227 12/12/22 1646 BP: 130/62 123/73 148/66 BP Location: Left arm Left arm Left arm Patient Position: Lying;HOB 30 degrees Sitting;Reclining Lying Pulse: 61 61 61 70 Resp: 18 18 18 Temp: 36.7 ??C (98.1 ??F) 36.4 ??C (97.6 ??F) 36.6 ??C (97.8 ??F) TempSrc: Axillary Oral Oral SpO2: 95% 98% 96% Weight: Height: Temp (24hrs), Av.6 ??C (97.9 ??F), Min:36.4 ??C (97.6 ??F), Max:36.7 ??C (98.1 ??F) Recent Labs Lab Units 12/11/22222512/11/22 0509 12/10/22 0542 WBC K/cumm 10.5* 10.1* 10.6* HEMOGLOBIN g/dL 8.3* 7.8* 7.1* HEMATOCRIT % 26.6* 25.7* 23.0* PLATELETS K/cumm 361 314 299 Recent Labs Lab Units 12/11/22222512/11/22 0509 12/10/22 0542 BUN SERUM mg/dL 60* 67* 69* CREATININE mg/dL 2.33* 2.62* 2.69* Scheduled Meds:amLODIPine, 10 mg, oral, Nightly atorvastatin, 20 mg, oral, Nightly benztropine, 1.5 mg, oral, Nightly carvediloL, 6.25 mg, oral, BID with meals (bkfst, dinner) famotidine, 10 mg, oral, Daily ferric gluconate, 125 mg of elemental iron, intravenous, Once per day on Thu ferrous sulfate, 65 mg of elemental iron, oral, Daily with breakfast furosemide, 40 mg, oral, BID DIURETIC heparin, 5,000 Units, subcutaneous, Q8H SOL insulin glargine, 15 Units, subcutaneous, Nightly insulin lispro, 0-4 Units, subcutaneous, Nightly insulin lispro, 0-5 Units, subcutaneous, TID with meals insulin lispro, 7 Units, subcutaneous, TID with meals metroNIDAZOLE, 500 mg, oral, TID pregabalin, 75 mg, oral, Nightly risperiDONE, 2 mg, oral, Nightly Continuous Infusions: PRN Meds:. albuterol HFA dextrose OR dextrose glucagon polyethylene glycol Review of Systems: Gen: denies fevers, denies chills, denies sweats, denies unintentional weight loss HEENT: Denies sore throat, denies thrush Neck: Denies palpable lymph nodes, denies neck stiffness Cv: denies chest pain, denies palpitations Resp: Denies SOB, Denies orthopnea Gi: Denies abdominal pain, Denies diarrhea, denies n/v Extrem: Denies gross deformities, denies joint pain, denies myalgias Skin: Denies rashes, denies lesions Neuro: Denies weakness, denies paresthesias, denies memory loss Psych: denies depression, denies anxiety Objective: Vitals: 24hr Min/Max: Temp Min: 36.2 ??C (97.2 ??F) Max: 37 ??C (98.6 ??F) Pulse Min: 66 Max: 90 BP Min: 119/74 Max: 142/53 Resp Min: 12 Max: 22 SpO2 Min: 90 % Max: 99 % Most Recent : Vitals Vitals: 12/07/22 0000 12/07/22 0400 12/07/22 0827 12/07/22 1146 BP: 126/76 123/72 119/74 141/66 BP Location: Right arm Right arm Right arm Right arm Patient Position: Lying Lying Lying Lying Pulse: 90 69 75 70 Resp: Temp: 37 ??C (98.6 ??F) 36.4 ??C (97.6 ??F) 36.8 ??C (98.3 ??F) 36.7 ??C (98.1 ??F) TempSrc: Axillary Axillary Oral Oral SpO2: 90% 92% 92% 98% Weight: Height: Physical Exam: General appearance: alert, cooperative, no distress HEENT: (-)icterus, Oropharnyx is normal, NCAT Neck: No palpable LN Lungs: Course breath sounds and symmetric; minimal respiratory effort, no r/w/c Heart: regular rhythm, normal S1 and S2, no m/r/g Abdomen: soft without mass, non-tender, +bowel sounds, no HSM Skin: (-)new rashes, right great toe with dry gangrene. No drainage. Minimal erythema around the toe. MSK: no gross deformities, FROM Vascular: no Edema, Neuro: No focal deficits Psych: Appropriate mood and affect Impression: 1 x 1 cm ulceration to Tip of right great toe, dry wound bed, no odor, no drainage Lab/Radiology/Diagnostic Review: 12/07 chest x-ray FINDINGS: There is a tiny right effusion. The remainder of the lungs are clear. Heart not enlarged. Aortic atherosclerosis. No failure. The tip of a left PICC line is in the distal superior vena cava. Cultures 11/08 right toe culture with MRSA and mixed Gram-positive organisms Respiratory PCR negative 11/30 urine culture with clinically insignificant MRI Foot Right WO Contrast Result Date: 11/10/2022 There is soft tissue swelling involving the right great toe with a distal wound. There is are smallsites of erosion involving the great toe distal tuft with associated marrow edema extending into the distal phalanx base. No drainable fluid collection. There has been prior application of the 4th digit through the metatarsal neck. There is subcutaneous edema about the ankle and along the dorsum ofthe foot. Mild first metatarsophalangeal joint chondrosis. There is subacute on chronic denervationof intrinsic foot musculature. There is tendinopathy of the distal Achilles tendon. Impression: 1. Distal right great toe wound with osteomyelitis of the distal phalanx and small erosions of the distal tuft. Assessment: 1. Acute respiratory failure possibly secondary to CHF no clear-cut evidence of pneumonia 2. Right great toe ulcer with osteomyelitis patient is supposed to be on vanc and Flagyl through 12/23 3. Dementia 4. Acute kidney injury, improved 5. CHF/diabetes mellitus/schizophrenia 6. Bilateral pleural effusions Plan: Continue vanc and Flagyl to 12/23 Discuss with Nephrology about the vancomycin and renal insufficiency, Nephrology thinks it is related to diuretics and not vancomycin induced and recommended to continue 4. CBC, CMP, vanc level bi weekly faxed to [phone] 5. Okay to DC from ID perspective * Sara Thornton, OT - 12/12/2022 5:01 PM CDT Occupational Therapy Occupational therapy attempted to see patient on this date to complete treatment session. Patient was not available secondary to pt refusing at this time, requests to rest. Pt up in chair and encouraged to continue sitting up out of bed as much as possible. Will re-attempt as time allows. Thank you, Sara Mcdonnell??maris Thornton, MOER/Nadine 12/12/22 * Jimbo Strauss MD - 12/12/2022 5:00 PM CDT Nephrology Daily Progress [facility]# [id number] #: [id number] Phone#: [phone] #: [phone] Subjective Chief complaint of Interval History: feels well, still some what confused, poor po intake Objective Vitals: 24hr Min/Max: Temp Min: 36.4 ??C (97.6 ??F) Max: 37.1 ??C (98.7 ??F) Pulse Min: 61 Max: 81 BP Min: 119/62 Max: 149/70 Resp Min: 16 Max: 19 SpO2 Min: 94 % Max: 98 % Intake/Output Summary (Last 24 hours) at 12/13/2022 0707 Last data filed at 12/13/2022 0510 Gross per 24 hour Intake 571 ml Output 2175 ml Net -1604 ml Wt Readings from Last 3 Encounters: 12/06/22 78.9 kg (173 lb 15.1 oz) 12/05/22 79.3 kg (174 lb 12.8 oz) 11/10/22 69.5 kg (153 lb 4.8 oz) Temp Av.8 ??C (98.2 ??F) Min: 36.4 ??C (97.6 ??F) Max: 37.1 ??C (98.7 ??F) BP Min: 119/62 Max: 149/70 Pulse Av.3 Min: 61 Max: 81 Resp Av.9 Min: 16 Max: 19 SpO2 Av % Min: 94 % Max: 98 % Most Recent: Vitals: 12/13/22 0400 BP: 120/74 Pulse: 81 Resp: 19 Temp: 36.9 ??C (98.4 ??F) SpO2: 94% I/O last 2 completed shifts: In: 571 [P.O.:471; IV Piggyback:100] Out: 2175 [Urine:2175] No intake/output data recorded. Current Facility-Administered Medications Medication Dose Route Frequency Last Rate Last Admin albuterol HFA (PROVENTIL HFA,VENTOLIN HFA,PROAIR HFA) 90 mcg/actuation inhaler 2 puff 2 puff inhalation Q4H PRN (RT) amLODIPine (NORVASC) tablet 10 mg 10 mg oral Nightly 10 mg at 12/12/222002 atorvastatin (LIPITOR) tablet 20 mg 20 mg oral Nightly 20 mg at 12/12/222002 benztropine (COGENTIN) tablet 1.5 mg 1.5 mg oral Nightly 1.5 mg at 12/12/22 2007 carvediloL (COREG) tablet 6.25 mg 6.25 mg oral BID with meals (bkfst, dinner) 6.25 mg at 12/12/22 1724 dextrose oral liquid liquid 15 g 15 g oral Q15 Min PRN 15 g at 12/11/22 1710 Or dextrose (D10W) 10% bolus 250 mL 250 mL intravenous Q15 Min PRN famotidine (PEPCID) tablet 10 mg 10 mg oral Daily 10 mg at 12/12/22 09 ferric gluconate (FERRLECIT) 125 mg of elemental iron in sodium chloride 0.9% 100 mL IVPB 125 mg ofelemental iron intravenous Once per day on Thu 110 mL/hr at 12/12/22 0912 125 mg of elemental iron at 12/12/22 09 ferrous sulfate delayed release tablet 65 mg of elemental iron 65 mg of elemental iron oral Daily with breakfast 65 mg of elemental iron at 12/12/22 0905 furosemide (LASIX) tablet 40 mg 40 mg oral BID DIURETIC 40 mg at 12/12/22 1455 glucagon injection 1 mg 1 mg intramuscular Q30 Min PRN heparin 5,000 unit/mL injection 5,000 Units 5,000 Units subcutaneous Q8H SOL 5,000 Units at 12/13/22 050 insulin glargine (LANTUS, SEMGLEE) 100 unit/mL injection 15 Units 15 Units subcutaneous Nightly 15 Units at 12/12/222009 insulin lispro (HumaLOG, ADMELOG) 100 unit/mL injection 0-4 Units 0-4 Units subcutaneous Nightly insulin lispro (HumaLOG, ADMELOG) 100 unit/mL injection 0-5 Units 0-5 Units subcutaneous TID with meals 1 Units at 12/12/22903 insulin lispro (HumaLOG, ADMELOG) 100 unit/mL injection 7 Units 7 Units subcutaneous TID with meals7 Units at 12/12/22903 metroNIDAZOLE (FLAGYL) tablet 500 mg 500 mg oral TID 500 mg at 12/13/22 050 ondansetron (ZOFRAN) injection 4 mg 4 mg intravenous Q6H PRN 4 mg at 12/12/222036 polyethylene glycol (MIRALAX) packet 17 g 17 g oral Daily PRN pregabalin (LYRICA) capsule 75 mg 75 mg oral Nightly 75 mg at 12/12/222002 risperiDONE (RisperDAL) tablet 2 mg 2 mg oral Nightly 2 mg at 12/12/222006 Continuous Medications Medication Dose Last Rate LDA: PICC Single Lumen 11/11/22 Non-tunneled Power Left Brachial;Upper arm (Active) Placement Date/Time: 11/11/22 1310 Placed by External Staff?: Other hospital Catheter Time Out Checklist Completed: Yes Hand Hygiene Performed: Yes Site Prep: Chlorhexidine Site Prep Agent has Completely Dried Before Insertion: Yes All 5 Steril... Number of days: 28 External Urinary Catheter (Active) Placement Date/Time: 12/06/22 1700 Inserted by: SWATI LAY External Catheter Type: Female External Urinary Catheter Sizes: Female- One size Number of days: 3 Vent settings: Hemodynamic parameters for last 24 hours: Physical Exam: General Appearance: Alert, cooperative, no distress, appears stated age, well developed, well nourished Head: Normocephalic, without obvious abnormality, atraumatic Eyes: PERRL, conjunctiva/corneas clear, EOM's intact, both eyes, anicteric Neck: Supple, symmetrical, trachea midline, no adenopathy; thyroid: No enlargement/tenderness/nodules; no carotid bruits, No JVD Lungs: Clear to auscultation bilaterally, respirations unlabored Cardiovascular: Regular rate and rhythm, S1 and S2 normal, no murmur, rub or gallop Abdomen: Soft, non-tender, bowel sounds active all four quadrants, non-distended Extremities: Extremities normal, +1 LE edema Skin: Skin color, texture, turgor normal, no rashes, lesions or bruising Neurologic: Alert & oriented person, + tremor Psychosocial: flat Dialysis Access Exam: Lab/Radiology/Diagnostic Review: Recent Labs Lab Units 12/13/22 0436 12/12/22 0724 12/11/22 2226 12/11/22 0811 12/11/22 0509 SODIUM mmol/L 143 -- 139 -- 144 POTASSIUM PLASMA mmol/L 3.9 -- 4.8 -- 4.5 CHLORIDE mmol/L 111* -- 109 -- 112* CO2 mmol/L 21* -- 17* -- 19* BUN SERUM mg/dL 56* -- 60* -- 67* CREATININE mg/dL 2.64* -- 2.33* -- 2.62* [id number] mL/min/1.73 m2 -- 22 -- 19 GLUCOSE mg/dL 87 -- 188 -- 83 POC GLUCOSE MONITOR -- < > -- < > -- CALCIUM mg/dL 8.7 -- 8.9 -- 8.8 ALBUMIN g/dL 2.9* -- 2.9* -- 3.0* PHOSPHORUS PLASMA mg/dL 4.6* -- 4.1 -- 4.9* < > = values in this interval not displayed. Additional Labs: Recent Labs Lab Units 12/13/22 0436 12/11/22 2226 12/11/22 0509 WBC K/cumm 9.5 10.5* 10.1* HEMOGLOBIN g/dL 7.6* 8.3* 7.8* HEMATOCRIT % 24.7* 26.6* 25.7* PLATELETS K/cumm 294 361 314 NEUTROS PCT % 61.7 69.9 60.4 LYMPHS PCT % 24.7 18.4 26.3 MONOS PCT % 9.7 8.4 9.6 EOS PCT % 2.9 2.2 2.6 Assessment/Plan CKD: stage 3b, due to dm, htn. Expect some rise due to diuresis. As off 12/12/2022 still has lots of edema. Will need on going diuresis. This will lead to increase in BUN and creatinine HTN: adequately controlled Edema: mostly LE some combination of CKD, pulmonary HTN, on going diuresis. Will add metolazone to regimen As off 12/11/2022 still has edema, with diuresis expect some rise in creatinine As of 12/12/2022 has LE edema, still needs on going diuresis Anemia: combination of CKD, possible iron deficiency Dyspnea: due to volume overload. Hyperkalemia: mild. 7. Tremors: possible related to parkinson. May benefit form neurology consult. 8. Anemia: check iron status 9. Metabolic acidosis: suspect renal failure related DICTATION DISCLAIMER: This note is transcribed using the Ep[employer] direct voice recognition system without human x ray tech. In an effort to expedite patient care, this note has not been adjusted for typographical, grammatical, and syntax by a trained medical instrument technician. Portions of this note have been copied from the medical record, but edited appropriately to accurately reflect the patient's current clinical state. Jimbo Strauss Office/exchange: [phone] Pager: [phone] * Brittney Bronson - 12/12/2022 2:44 PM CDT Nutrition Assessment Reason for Assessment: Initial Nutrition Assessment and Length of Stay Encounter Date: 12/12/22 2:44 PM Nutrition Assessment and Plan: Patient is a 72 y.o. female. Admit Dx: Shortness of breath [R06.02] Acute systolic congestive heart failure (CMS/HCC) (HCC) [I50.21] Acute congestive heart failure, unspecified heart failure type (HCC) [I50.9]. Admitted on 12/06/2022, current LOS is 6 days. Pt screened per LOS policy. Chart reviewed. Admitted with acute CHF exacerbation. PMH includes: DM II (A1c 7.1% 11/30/22), HTN, HLD, GERD, dementia, Parkinson's disease, CHF, schizophrenia, depression, CKD. Heart Healthy 2 gram sodium Renal diet ordered. Variable PO intakes documented over the past few days, 0-100%. Spoke with pt on phone, appeared confused. Reports good appetite. GI WDL. Last BM documented 12/09. Bowel regimen prn. Nephrology following. Labs reviewed. K/Phos WNL. BG controlled. Osteomyelitis of right first toe. +1 bilateral lower extremity edema. Lasix ordered. Weight gain noted over the past month, likely fluid related. Will trial Ensure HP once daily. Consider removing renal restriction. RD following and available if needed. Wt Readings from Last 10 Encounters: 12/06/22 78.9 kg (173 lb 15.1 oz) 12/05/22 79.3 kg (174 lb 12.8 oz) 11/10/22 69.5 kg (153 lb 4.8 oz) 10/10/22 69.5 kg (153 lb 3.2 oz) 10/02/22 71.5 kg (157 lb 11.2 oz) 09/10/22 69.9 kg (154 lb) 09/04/22 68 kg (150 lb) 08/14/22 68.5 kg (151 lb) 08/02/22 72.6 kg (160 lb 0.9 oz) 07/18/22 72.1 kg (159 lb) Current diet order: Adult Diet Restricted; Low Fat, Low Chol, Low Na, 2 GM Sodium; Consistent Carb 1600 chanelle; Renal Pt intake is inconsistent. PO intakes: 0-100% x3 days Nutrition Diagnosis 1: Increased nutrient needs (protein) Related to: Wounds Evidenced by: Physicalfinding Interventions: Assess for nutrition changes, Initial assessment, Medical food supplement Monitoring and Evaluation: Appetite, Blood glucoses, Discharge plans, Food preferences, Labs, Plan of care, PO intake, Supplement tolerance, Weight changes, Wound healing Goals: Adequate nutrition to meet estimated needs by next assessment, Oral intake to meet 75% estimated nutritional needs by next assessment, Tolerance of medical food supplement by next assessment Estimated needs: Total Kcal/kg Estimated Needs : 1972.5 based on Kcal/k. Type of Weight Used for Estimated Kcals: Current Total Protein Estimated Needs (gm): 78.9 Protein Needs Based on g/k.0 Type of Weight Used for Estimated Protein : Current. Estimated Fluid Needs Total Fluid Estimated Needs Comments:: 1-2 L/day CHF Objective Anthropometrics Weight: 78.9 kg (173 lb 15.1 oz) Weight Method (RD Entered): Stated Admission Weight : 78.9 kg Weight Change: -0.02 kg (-0.05 lbs) IBW/kg (Calculated) : 49.9 kg Height: 157.5 cm (5' 2.01 ) Weight in (lb) to have BMI = 25: 136.4 BMI (Calculated): 31.8 BMI Classification: BMI 30.0 - 34.9 Obese Class I 3 Day I/O Summary 12/10 1899 - 12/12 0659 In: 480 [P.O.:480] Out: 2837 [Urine:2837] Temp: 36.4 ??C (97.6 ??F) Past Medical History: Diagnosis Date Arthritis CHF (congestive heart failure) ([facility]) ([facility]) Dementia ([facility]) Depression Diabetic neuropathy ([facility]) Hyperlipidemia Hypertension Movement disorder Osteomyelitis (HCC) Renal disorder Schizophrenia ([facility]) Type 2 diabetes mellitus ([facility]) Medications and Lab Review: Scheduled Meds: amLODIPine, 10 mg, oral, Nightly atorvastatin, 20 mg, oral, Nightly benztropine, 1.5 mg, oral, Nightly carvediloL, 6.25 mg, oral, BID with meals (bkfst, dinner) famotidine, 10 mg, oral, Daily ferric gluconate, 125 mg of elemental iron, intravenous, Once per day on Thu ferrous sulfate, 65 mg of elemental iron, oral, Daily with breakfast furosemide, 40 mg, oral, BID DIURETIC heparin, 5,000 Units, subcutaneous, Q8H SOL insulin glargine, 15 Units, subcutaneous, Nightly insulin lispro, 0-4 Units, subcutaneous, Nightly insulin lispro, 0-5 Units, subcutaneous, TID with meals insulin lispro, 7 Units, subcutaneous, TID with meals metroNIDAZOLE, 500 mg, oral, TID pregabalin, 75 mg, oral, Nightly risperiDONE, 2 mg, oral, Nightly Continuous Infusions: Sodium Date Value Ref Range Status 12/11/2022 139 135 - 145 mmol/L Final Potassium, pl Date Value Ref Range Status 12/11/2022 4.8 3.3 - 4.9 mmol/L Final BUN Date Value Ref Range Status 12/11/2022 60 (H) 6 - 25 mg/dL Final Creatinine Date Value Ref Range Status 12/11/2022 2.33 (H) 0.60 - 1.10 mg/dL Final Phosphorus, pl Date Value Ref Range Status 12/11/2022 4.1 2.3 - 4.5 mg/dL Final Albumin Date Value Ref Range Status 12/11/2022 2.9 (L) 3.5 - 5.0 g/dL Final Magnesium Date Value Ref Range Status 12/11/2022 2.4 1.4 - 2.5 mg/dL Final Calcium Date Value Ref Range Status 12/11/2022 8.9 8.5 - 10.3 mg/dL Final Lab Results Component Value Date HGBA1C 7.1 (H) 11/30/2022 Lab Results Component Value Date GLUCOSE 141 12/12/2022 GLUCOSE 197 12/12/2022 GLUCOSE 188 12/11/2022 GLUCOSE 151 12/11/2022 GLUCOSE 120 12/11/2022 GLUCOSE 80 12/11/2022 GLUCOSE 83 12/11/2022 GLUCOSE 158 12/10/2022 Nursing Assessment: Last BM Date: 12/09/22 Timoteo Scale Score: 13 Skin Integrity: (wound) Diet Instructions Recommend to follow a consistent carbohydrate/heart healthy diet, which includes a variety of fruits, vegetables, whole-grains, low-fat dairy products, beans, lean meats, and fish. Limit foods that are high in saturated fats and sodium like desserts, fast food, fried/breaded foods, deli meats, sausage, nobles, and gravies/sauces. Aim to eat less than 2,000mg sodium per day (about 500-700 mg per meal). Eat three meals per day and eat 45-60 grams of carbohydrate at each one, do not skip meals and aim to eat meals at consistent times. Avoid sugary drinks like lemonade, regular soda, Gatorade, andsweet tea and drink water throughout the day. Call [phone] to speak with a dietitian about anydiet related concerns. Recommend to follow up with outpatient nutrition counseling, ask your doctorfor referral and call [phone] to make an appointment. Additional Resources [employer]: www.diabetes.org/nutrition [employer]: www.heart.org/en/healthy-living/healthy-eating Nutrition Follow-Up : 12/17/22 Brittney Bronson MS, RD, LD * Gill Gamboa MD - 12/12/2022 11:54 AM CDT General Medicine Progress Note Interval Events: This is a 72-year-old female with history of CHF, chronic kidney disease, osteomyelitis, diabetes, schizophrenia who came to the hospital with complaint of shortness a breath. Patient noted to be volume overloaded. Patient has now been transitioned to oral diuretics. Infectious Disease has been guiding IV antibiotics. Adjustments in IV antibiotics noted-cefepime now discontinued. Plan to continue vancomycin/Flagyl until 12/23. Care plan discussed with case management/social work. Home infusion orders will be placed. Anticipate return home with home infusion and home health. Subjective: Chief complaint: Shortness of breath. Patient seen in her room. No new complaints. Resting comfortably. Denies any chest pain or shortness a breath. Objective: Vitals: 24hr Min/Max: Temp Min: 36.5 ??C (97.7 ??F) Max: 37 ??C (98.6 ??F) Pulse Min: 55 Max: 69 BP Min: 114/46 Max: 154/78 Resp Min: 18 Max: 20 SpO2 Min: 94 % Max: 99 % Most Recent: Vitals: 12/12/22 0000 12/12/22 0400 12/12/22 0824 12/12/22 0900 BP: 148/69 115/65 130/62 BP Location: Left arm Left arm Left arm Patient Position: Lying Lying Lying;HOB 30 degrees Pulse: 69 55 61 61 Resp: 20 20 18 Temp: 36.7 ??C (98 ??F) 36.5 ??C (97.7 ??F) 36.7 ??C (98.1 ??F) TempSrc: Axillary Axillary Axillary SpO2: 98% 94% 95% Weight: Height: Intake/Output Summary (Last 24 hours) at 12/12/2022 1154 Last data filed at 12/12/2022 1111 Gross per 24 hour Intake 811 ml Output 1342 ml Net -531 ml Physical Exam: Physical Exam GEN: Alert. NAD HENT: Normocephalic. Atraumatic. CVS: RRR CHEST: Clear bilaterally ABD: soft. ND EXT: no edema Lab/Radiology/Diagnostic Review: Reviewed. Recent Results (from the past 24 hour(s)) POCT glucose Collection Time: 12/11/22 1:00 PM Result Value Ref Range Glucose, POC 97 70 - 199 mg/dL POCT glucose Collection Time: 12/11/22 4:54 PM Result Value Ref Range Glucose, POC 66 (L) 70 - 199 mg/dL POCT glucose Collection Time: 12/11/22 5:06 PM Result Value Ref Range Glucose, POC 67 (L) 70 - 199 mg/dL POCT glucose Collection Time: 12/11/22 5:25 PM Result Value Ref Range Glucose, POC 80 70 - 199 mg/dL POCT glucose Collection Time: 12/11/22 6:01 PM Result Value Ref Range Glucose, POC 120 70 - 199 mg/dL POCT glucose Collection Time: 12/11/22 7:48 PM Result Value Ref Range Glucose, POC 151 70 - 199 mg/dL CBC with auto differential Collection Time: 12/11/22 10:26 PM Result Value Ref Range WBC 10.5 (H) 3.8 - 9.9 K/cumm Hgb 8.3 (L) 11.9 - 15.5 g/dL Hct 26.6 (L) 35.6 - 45.5 % Plt 361 150 - 400 K/cumm MPV 10.7 9.1 - 12.3 fL RBC 2.79 (L) 3.90 - 5.20 M/cumm MCV 95.3 81.3 - 96.4 fL MCH 29.7 27.1 - 33.3 pg MCHC 31.2 (L) 32.3 - 35.7 g/dL RDW CV 16.7 (H) 11.1 - 14.9 % RDW SD 57.4 (H) 35.7 - 48.1 fL NRBC abs 0.04 (H) 0.00 - 0.01 K/cumm Renal function panel Collection Time: 12/11/22 10:26 PM Result Value Ref Range Sodium 139 135 - 145 mmol/L Potassium, pl 4.8 3.3 - 4.9 mmol/L Chloride 109 97 - 110 mmol/L CO2 17 (L) 22 - 32 mmol/L Anion gap 13 2 - 15 mmol/L BUN 60 (H) 6 - 25 mg/dL Creatinine 2.33 (H) 0.60 - 1.10 mg/dL Glucose 188 70 - 199 mg/dL Calcium 8.9 8.5 - 10.3 mg/dL Phosphorus, pl 4.1 2.3 - 4.5 mg/dL Albumin 2.9 (L) 3.5 - 5.0 g/dL Magnesium Collection Time: 12/11/22 10:26 PM Result Value Ref Range Magnesium 2.4 1.4 - 2.5 mg/dL Differential, auto Collection Time: 12/11/22 10:26 PM Result Value Ref Range Neutrophil abs 7.4 (H) 1.7 - 6.5 K/cumm Imm gran abs 0.1 0.0 - 0.1 K/cumm Lymphocyte abs 1.9 0.8 - 3.3 K/cumm Monocyte abs 0.9 (H) 0.2 - 0.8 K/cumm Eosinophil abs 0.2 0.0 - 0.5 K/cumm Basophil abs 0.1 0.0 - 0.1 K/cumm Neutrophil pct 69.9 % Imm gran pct 0.6 % Lymphocyte pct 18.4 % Monocyte pct 8.4 % Eosinophil pct 2.2 % Basophil pct 0.5 % eGFR Collection Time: 12/11/22 10:26 PM Result Value Ref Range eGFR 22 mL/min/1.73 m2 Urinalysis reflex to microscopic and culture Urine, bladder Collection Time: 12/11/22 10:35 PM Specimen: Urine, bladder Result Value Ref Range Color, ur Yellow Yellow Clarity, ur Clear Clear Specific gravity, ur 1.012 1.003 - 1.030 pH, urine 5.0 Protein, ur ql 2+ (A) Negative Glucose, ur ql Negative Negative Ketones, ur Negative Negative Bilirubin, ur Negative Negative Blood, ur 2+ (A) Negative Urobilinogen, ur <2.0 <2.0 mg/dL Nitrite, ur Negative Negative Leukocyte esterase, ur 2+ (A) Negative UA reflex comment Reflex to microscopic UA will be performed. Urinalysis, microscopic only Collection Time: 12/11/22 10:35 PM Result Value Ref Range WBC, ur 11-20 (A) 0 - 5 /HPF RBC, ur 0-2 0 - 2 /HPF Epithelial cells, squamous, ur 1-5 0 - 5 /HPF Mucous, ur Present (A) Culture Reflex Comment Reflex to urine culture will be performed. Aerobic and anaerobic culture and gram stain Wound Toe, great, right Collection Time: 12/12/22 6:15 AM Specimen: Toe, great, right; Wound Result Value Ref Range Direct Specimen Exam Stain: No polymorphonuclear leukocytes seen. No organisms seen. POCT glucose Collection Time: 12/12/22 7:24 AM Result Value Ref Range Glucose, POC 197 70 - 199 mg/dL POCT glucose Collection Time: 12/12/22 11:30 AM Result Value Ref Range Glucose, POC 141 70 - 199 mg/dL Assessment and Plan: Principal Problem: Acute on chronic diastolic congestive heart failure ([facility]) ([facility]) Active Problems: Type 2 diabetes mellitus with diabetic neuropathy, with long-term current use of insulin ([facility]) ([facility]) Schizoaffective disorder, bipolar type ([facility]) ([facility]) 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 2 diabetes mellitus ([facility]) ([facility]) Late onset Alzheimer's dementia without behavioral disturbance ([facility]) Osteomyelitis of great toe of right foot ([facility]) ([facility]) BRENDA (acute kidney injury) ([facility]) ([facility]) Bibasilar consolidations Movement disorder Acute hypoxemic respiratory failure. Secondary to CHF. Respiratory status stable. Continue to monitor closely. Acute on chronic diastolic congestive heart failure. Continue with oral Lasix. Acute on chronic kidney disease stage 3. Creatinine continues to improve. Creatinine is now 2.33. Type 2 diabetes. Continue Lantus 15 units q.h.s.. Monitor Accu-Cheks q.a.c. q.h.s. adjust with a low-dose sliding scale as needed. Essential hypertension continue amlodipine 10 milligrams daily. Right great toe ulcer with osteomyelitis. Plan to continue vancomycin/Flagyl until 12/23 Disposition: Discharge planning discussed with case management. Adjustments in antibiotics noted. Patient now discontinued on IV cefepime. Plan to continue with vancomycin until. Home infusion orders will be set up. My total encounter time on 12/12/2022 was 36 minutes which was spent in the activities documented inthe note. This includes time spent prior to the visit and after the visit in direct care of the patient. This time does not include time spent in any separately reportable services. Gill Gamboa MD Hospitalist [phone] 1:54 AM * Hui Bazan PTA - 12/12/2022 9:36 AM CDT Physical Therapy PT PROGRESS NOTE PATIENT'S NAME:Sixto Chakraborty :1950 AGE:72 y.o. ROOM:[place] [address] Past Medical History: Diagnosis Date Arthritis CHF (congestive heart failure) ([facility]) ([facility]) Dementia ([facility]) Depression Diabetic neuropathy ([facility]) Hyperlipidemia Hypertension Movement disorder Osteomyelitis ([facility]) Renal disorder Schizophrenia ([facility]) Type 2 diabetes mellitus ([facility]) Past Surgical History: Procedure Laterality Date SECTION Right right foot TOE AMPUTATION Right 01/06/2020 4th toe amp/ foot debridement/ Dr. Anat Pelayo Patient Active Problem List Diagnosis Schizoaffective disorder, bipolar type ([facility]) ([facility]) Diabetic neuropathy ([facility]) Type 2 diabetes mellitus with diabetic neuropathy, with long-term current use of insulin ([facility]) ([facility]) Hypertension associated with diabetes ([facility]) Amputation of toe of right foot ([facility]) ([facility]) Iron deficiency anemia Gastroesophageal reflux disease Hyperlipidemia associated with type 2 diabetes mellitus ([facility]) Dementia ([facility]) Schizoaffective disorder, bipolar type ([facility]) ([facility]) 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 2 diabetes mellitus ([facility]) ([facility]) Encounter for Medicare annual wellness exam Late onset Alzheimer's dementia without behavioral disturbance ([facility]) Volume overload Anemia Toe necrosis ([facility]) ([facility]) Physical deconditioning Left leg DVT ([facility]) ([facility]) Pulmonary nodule Retention of urine, unspecified Unspecified osteoarthritis, unspecified site Unsteadiness on feet Weakness Parkinsonism ([facility]) Wheezing Anemia in stage 4 chronic kidney disease ([facility]) Osteomyelitis of great toe of right foot ([facility]) ([facility]) Abnormal urinalysis Cellulitis of great toe of right foot BRENDA (acute kidney injury) ([facility]) ([facility]) Acute on chronic diastolic congestive heart failure ([facility]) ([facility]) Bibasilar consolidations Movement disorder TIME IN: 0936 TIME OUT: 1014 SUBJECTIVE Patient states she needs to use the bathroom. MENTAL STATUS/ORIENTATION: lethargic; oriented to name/; location [facility], [facility] ; disoriented to current year. PAIN: Pre-therapy pain level: denies pain Pain location: n/a Pain intervention: n/a Post-therapy pain level/response to intervention: unchanged OBJECTIVE PRECAUTIONS: fall, contact for MRSA APPEARANCE/POSTURE: female patient sitting in bed eating breakfast, alarm in place, IV and joy catheter VITAL SIGNS: Resting heart rate: 63 BPM Post-activity heart rate: - Resting O2 sat: 98% on room air Post-activity O2 sat: - MOBILITY DOCUMENTATION: Bed Mobility/Transfers: supine to sit with max assist. Scoot to EOB dependent. Scoot back in chair max assist. Sit to stand with w/w with mod assist and vc's/tactile cues for hand placement. Stand to sit with min assist and vc's/tactile cues for hand placement and safety. Bed to/from commode, and bed to recliner, with w/w with min/mod assist; demonstrates generalized small tremors, and intermittent larger amplitude jerking motions at knees and trunk. Gait: not appropriate at this time. APPEARANCE/POSTURE (end of session): seated in recliner with LE's elevated, IV, joy catheter, alarm in place and activated, call light in reach, patient continues with breakfast. EDUCATION:posture, positioning, bed mobility , functional transfer training, and safety RESPONSE TO EDUCATION: needs reinforcement ASSESSMENT Activity tolerance/response to P.T.: patient is slow to respond to questions and commands, at timesnot responding; all mobility slow, generally needing assist to initiate. Barriers to learning: Physical and Cognitive Barriers to discharge: Cognitive deficit, Limited safety awareness, Limited insight into deficits, Lower extremity weakness, and Long standing deficits Patient continues progressing toward previously set goals which remain appropriate at this time. PLAN PT Discharge Recommendations this date: Home with family 24 hour assist and HHPT. PT Frequency during current admission: 3-5x/wk Refer to multi-disciplinary care plan section for PT specific goals. If this is the last note, please consider this the discharge summary. Cosigned by Mindy William, PT at 12/12/2022 2:47 PM CDT * William Velasquez MD - 12/12/2022 8:42 AM CDT Daily Progress [facility] Cardiology OBJECTIVE: Past Medical History: Diagnosis Date Arthritis CHF (congestive heart failure) (CMS/HCC) (HCC) Dementia (HCC) Depression Diabetic neuropathy (HCC) Hyperlipidemia Hypertension Movement disorder Osteomyelitis (HCC) Renal disorder Schizophrenia (HCC) Type 2 diabetes mellitus (HCC) Family History Problem Relation Age of Onset Stomach cancer Father Scheduled Medications Medication Dose Route Frequency amLODIPine (NORVASC) tablet 10 mg 10 mg oral Nightly atorvastatin (LIPITOR) tablet 20 mg 20 mg oral Nightly benztropine (COGENTIN) tablet 1.5 mg 1.5 mg oral Nightly carvediloL (COREG) tablet 6.25 mg 6.25 mg oral BID with meals (bkfst, dinner) famotidine (PEPCID) tablet 10 mg 10 mg oral Daily ferric gluconate (FERRLECIT) 125 mg of elemental iron in sodium chloride 0.9% 100 mL IVPB 125 mg ofelemental iron intravenous Once per day on Thu ferrous sulfate delayed release tablet 65 mg of elemental iron 65 mg of elemental iron oral Daily with breakfast furosemide (LASIX) tablet 40 mg 40 mg oral BID DIURETIC heparin 5,000 unit/mL injection 5,000 Units 5,000 Units subcutaneous Q8H SOL insulin glargine (LANTUS, SEMGLEE) 100 unit/mL injection 15 Units 15 Units subcutaneous Nightly insulin lispro (HumaLOG, ADMELOG) 100 unit/mL injection 0-4 Units 0-4 Units subcutaneous Nightly insulin lispro (HumaLOG, ADMELOG) 100 unit/mL injection 0-5 Units 0-5 Units subcutaneous TID with meals insulin lispro (HumaLOG, ADMELOG) 100 unit/mL injection 7 Units 7 Units subcutaneous TID with meals metroNIDAZOLE (FLAGYL) tablet 500 mg 500 mg oral TID pregabalin (LYRICA) capsule 75 mg 75 mg oral Nightly risperiDONE (RisperDAL) tablet 2 mg 2 mg oral Nightly Recent Labs Lab Units 12/11/22 2226 12/11/22 0509 12/10/22 0542 12/09/22 0528 12/08/22 0801 WBC K/cumm 10.5* 10.1* 10.6* 8.3 8.0 HEMOGLOBIN g/dL 8.3* 7.8* 7.1* 7.5* 7.2* HEMATOCRIT % 26.6* 25.7* 23.0* 24.3* 23.2* PLATELETS K/cumm 361 314 299 293 294 Recent Labs Lab Units 12/12/22 0724 12/11/22 2226 12/11/22 1948 12/11/22 1801 12/11/22 1725 12/11/22 0811 12/11/22 0509 12/10/22 0726 12/10/22 0542 12/09/22 0808 12/09/22 0528 12/08/22 1222 12/08/22 0801 12/06/22 1452 12/06/22 1451 SODIUM mmol/L -- 139 -- -- -- -- 144 -- 144 -- 143 -- 141 -- 137 POTASSIUM PLASMA mmol/L -- 4.8 -- -- -- -- 4.5 -- 4.6 -- 4.6 -- 4.6 -- 5.1* CHLORIDE mmol/L -- 109 -- -- -- -- 112* -- 112* -- 111* -- 109 -- 106 CO2 mmol/L -- 17* -- -- -- -- 19* -- 19* -- 20* -- 20* -- 20* ANIONGAP mmol/L -- 13 -- -- -- -- 13 -- 13 -- 12 -- 12 -- 11 GLUCOSE mg/dL -- 188 -- -- -- -- 83 -- 158 -- 92 -- 119 -- 206* POC GLUCOSE MONITOR mg/dL 197 -- 151 120 80 < > -- < > -- < > -- < > -- < > -- BUN SERUM mg/dL -- 60* -- -- -- -- 67* -- 69* -- 68* -- 67* -- 51* CREATININE mg/dL -- 2.33* -- -- -- -- 2.62* -- 2.69* -- 2.68* -- 2.58* -- 2.37* CALCIUM mg/dL -- 8.9 -- -- -- -- 8.8 -- 8.9 -- 8.9 -- 9.2 -- 9.2 ALBUMIN g/dL -- 2.9* -- -- -- -- 3.0* -- 3.1* -- 2.9* -- 2.9* -- 3.2* ALK PHOS Units/L -- -- -- -- -- -- -- -- -- -- -- -- -- -- 100 ALT Units/L -- -- -- -- -- -- -- -- -- -- -- -- -- -- 10 AST Units/L -- -- -- -- -- -- -- -- -- -- -- -- -- -- 14 BILIRUBIN TOTAL mg/dL -- -- -- -- -- -- -- -- -- -- -- -- -- -- <0.2 < > = values in this interval not displayed. Intake/Output Summary (Last 24 hours) at 12/12/2022 0842 Last data filed at 12/12/2022 0443 Gross per 24 hour Intake 480 ml Output 1342 ml Net -862 ml Vitals: 12/11/22 2000 12/12/22 0000 12/12/22 0400 12/12/22 0824 BP: 154/78 148/69 115/65 130/62 BP Location: Left arm Left arm Left arm Left arm Patient Position: Sitting Lying Lying Lying;HOB 30 degrees Pulse: 69 69 55 61 Resp: 18 20 20 18 Temp: 36.7 ??C (98 ??F) 36.7 ??C (98 ??F) 36.5 ??C (97.7 ??F) 36.7 ??C (98.1 ??F) TempSrc: Oral Axillary Axillary Axillary SpO2: 98% 98% 94% 95% Weight: Height: ASSESSMENT/PLAN: Patient Active Problem List Diagnosis Schizoaffective disorder, bipolar type (CMS/HCC) ([facility]) Diabetic neuropathy ([facility]) Type 2 diabetes mellitus with diabetic neuropathy, with long-term current use of insulin ([facility]/HCC) ([facility]) Hypertension associated with diabetes ([facility]) Amputation of toe of right foot ([facility]/HCC) ([facility]) Iron deficiency anemia Gastroesophageal reflux disease Hyperlipidemia associated with type 2 diabetes mellitus ([facility]) Dementia ([facility]) Schizoaffective disorder, bipolar type ([facility]/HCC) ([facility]) 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 2 diabetes mellitus ([facility]/HCC) ([facility]) Encounter for Medicare annual wellness exam Late onset Alzheimer's dementia without behavioral disturbance ([facility]) Volume overload Anemia Toe necrosis (CMS/HCC) ([facility]) Physical deconditioning Left leg DVT ([facility]/HCC) ([facility]) Pulmonary nodule Retention of urine, unspecified Unspecified osteoarthritis, unspecified site Unsteadiness on feet Weakness Parkinsonism ([facility]) Wheezing Anemia in stage 4 chronic kidney disease ([facility]) Osteomyelitis of great toe of right foot (CMS/HCC) ([facility]) Abnormal urinalysis Cellulitis of great toe of right foot BRENDA (acute kidney injury) ([facility]/HCC) ([facility]) Acute on chronic diastolic congestive heart failure ([facility]/HCC) ([facility]) Bibasilar consolidations Movement disorder S feels comfortable no chest pain shortness of breath Exam: Gen: Comfortable, NAD CVS: RRR, S1, S2 present, trace leg edema GI: Soft Non tender Chest: CTAB Assessment plan: CKD contributing to volume overload - with acute on chronic kidney disease - managed by Nephrology CKD stage III with Brenda nephrology is managing Acute on chronic diastolic heart failure - normal LV function , on p.o. diuretics as per Nephrology Elevated troponin due to renal dysfunction does not represent ACS nonischemic MPI recently Essential hypertension well controlled Diabetes mellitus type 2 Right great toe ulcer with osteomyelitis - on antibiotic therapy as per Infectious Disease - normal TEO and TBI Iron deficiency anemia getting IV iron infusion. William Velasquez MD, [facility], [facility], [facility] [phone] 12/12/2022 8:42 AM * Gill Gamboa MD - 12/11/2022 5:29 PM CDT General Medicine Progress Note Interval Events: This is a 72-year-old female with history of CHF, chronic kidney disease, osteomyelitis, diabetes, schizophrenia who came to the hospital with complaint of shortness a breath. Patient noted to be volume overloaded. Patient has now been transitioned to oral diuretics. Infectious Disease has been guiding IV antibiotics. Infectious Disease recommends continuing IV vancomycin/Flagyl until 12/23. Subjective: Chief complaint: Shortness of breath. Patient seen in her room. New complaints. Resting comfortably. Objective: Vitals: 24hr Min/Max: Temp Min: 36.5 ??C (97.7 ??F) Max: 37 ??C (98.6 ??F) Pulse Min: 57 Max: 69 BP Min: 100/47 Max: 154/78 Resp Min: 16 Max: 18 SpO2 Min: 94 % Max: 99 % Most Recent: Vitals: 12/11/22 0822 12/11/22 1136 12/11/22 1649 12/11/221999 BP: 128/64 135/73 114/46 154/78 BP Location: Right arm Right arm Left arm Left arm Patient Position: Lying;Other (Comment) Reclining;Sitting Sitting;Reclining Sitting Pulse: 66 69 63 69 Resp: 16 16 18 18 Temp: 36.6 ??C (97.9 ??F) 36.6 ??C (97.8 ??F) 37 ??C (98.6 ??F) 36.7 ??C (98 ??F) TempSrc: Oral Oral Oral Oral SpO2: 97% 96% 99% 98% Weight: Height: Intake/Output Summary (Last 24 hours) at 12/11/20222210 Last data filed at 12/11/20222124 Gross per 24 hour Intake 480 ml Output 2137 ml Net -1657 ml Physical Exam: Physical Exam GEN: Alert. NAD HENT: Normocephalic. Atraumatic. CVS: RRR CHEST: Clear bilaterally ABD: soft. ND EXT: no edema Lab/Radiology/Diagnostic Review: Reviewed. Recent Results (from the past 24 hour(s)) CBC with auto differential Collection Time: 12/11/22 5:09 AM Result Value Ref Range WBC 10.1 (H) 3.8 - 9.9 K/cumm Hgb 7.8 (L) 11.9 - 15.5 g/dL Hct 25.7 (L) 35.6 - 45.5 % Plt 314 150 - 400 K/cumm MPV 11.1 9.1 - 12.3 fL RBC 2.66 (L) 3.90 - 5.20 M/cumm MCV 96.6 (H) 81.3 - 96.4 fL MCH 29.3 27.1 - 33.3 pg MCHC 30.4 (L) 32.3 - 35.7 g/dL RDW CV 16.5 (H) 11.1 - 14.9 % RDW SD 57.1 (H) 35.7 - 48.1 fL NRBC abs 0.05 (H) 0.00 - 0.01 K/cumm Renal function panel Collection Time: 12/11/22 5:09 AM Result Value Ref Range Sodium 144 135 - 145 mmol/L Potassium, pl 4.5 3.3 - 4.9 mmol/L Chloride 112 (H) 97 - 110 mmol/L CO2 19 (L) 22 - 32 mmol/L Anion gap 13 2 - 15 mmol/L BUN 67 (H) 6 - 25 mg/dL Creatinine 2.62 (H) 0.60 - 1.10 mg/dL Glucose 83 70 - 199 mg/dL Calcium 8.8 8.5 - 10.3 mg/dL Phosphorus, pl 4.9 (H) 2.3 - 4.5 mg/dL Albumin 3.0 (L) 3.5 - 5.0 g/dL Magnesium Collection Time: 12/11/22 5:09 AM Result Value Ref Range Magnesium 2.5 1.4 - 2.5 mg/dL Vancomycin level random Collection Time: 12/11/22 5:09 AM Result Value Ref Range Vancomycin random 19.8 mcg/mL Differential, auto Collection Time: 12/11/22 5:09 AM Result Value Ref Range Neutrophil abs 6.1 1.7 - 6.5 K/cumm Imm gran abs 0.1 0.0 - 0.1 K/cumm Lymphocyte abs 2.7 0.8 - 3.3 K/cumm Monocyte abs 1.0 (H) 0.2 - 0.8 K/cumm Eosinophil abs 0.3 0.0 - 0.5 K/cumm Basophil abs 0.1 0.0 - 0.1 K/cumm Neutrophil pct 60.4 % Imm gran pct 0.5 % Lymphocyte pct 26.3 % Monocyte pct 9.6 % Eosinophil pct 2.6 % Basophil pct 0.6 % eGFR Collection Time: 12/11/22 5:09 AM Result Value Ref Range eGFR 19 mL/min/1.73 m2 POCT glucose Collection Time: 12/11/22 8:11 AM Result Value Ref Range Glucose, POC 99 70 - 199 mg/dL POCT glucose Collection Time: 12/11/22 1:00 PM Result Value Ref Range Glucose, POC 97 70 - 199 mg/dL POCT glucose Collection Time: 12/11/22 4:54 PM Result Value Ref Range Glucose, POC 66 (L) 70 - 199 mg/dL POCT glucose Collection Time: 12/11/22 5:06 PM Result Value Ref Range Glucose, POC 67 (L) 70 - 199 mg/dL POCT glucose Collection Time: 12/11/22 5:25 PM Result Value Ref Range Glucose, POC 80 70 - 199 mg/dL POCT glucose Collection Time: 12/11/22 6:01 PM Result Value Ref Range Glucose, POC 120 70 - 199 mg/dL POCT glucose Collection Time: 12/11/22 7:48 PM Result Value Ref Range Glucose, POC 151 70 - 199 mg/dL Assessment and Plan: Principal Problem: Acute on chronic diastolic congestive heart failure ([facility]/HCC) ([facility]) Active Problems: Type 2 diabetes mellitus with diabetic neuropathy, with long-term current use of insulin ([facility]) ([facility]) Schizoaffective disorder, bipolar type ([facility]) ([facility]) 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 2 diabetes mellitus ([facility]) ([facility]) Late onset Alzheimer's dementia without behavioral disturbance ([facility]) Osteomyelitis of great toe of right foot (CMS/HCC) (HCC) BRENDA (acute kidney injury) (CMS/HCC) (HCC) Bibasilar consolidations Movement disorder Acute hypoxemic respiratory failure. Secondary to CHF. Now stable and compensated. Respiratory status stable Acute on chronic diastolic congestive heart failure. Patient now transitioned to oral Lasix. Acute on chronic kidney disease stage 3. Continue to monitor response to diuretics. Monitor creatinine closely. Type 2 diabetes. Continue Lantus 15 units q.h.s.. Monitor Accu-Cheks q.a.c. q.h.s. adjust with a low-dose sliding scale as needed. Essential hypertension continue amlodipine 10 milligrams daily. Right great toe ulcer with osteomyelitis. Plan to continue vancomycin/Flagyl until 12/23 Disposition: Care plan discussed with case management. Discharge planning currently underway. Monitor closely. My total encounter time on 12/11/2022 was 36 minutes which was spent in the activities documented inthe note. This includes time spent prior to the visit and after the visit in direct care of the patient. This time does not include time spent in any separately reportable services. Gill Gamboa MD Hospitalist [phone] 0:11 PM * Jimbo Strauss MD - 12/11/2022 5:00 PM CDT Nephrology Daily Progress [facility]# [id number] #: [id number] Phone#: [phone] #: 1950 Subjective Chief complaint of Interval History: feels well, still some what confused, poor po intake Objective Vitals: 24hr Min/Max: Temp Min: 36.5 ??C (97.7 ??F) Max: 37 ??C (98.6 ??F) Pulse Min: 55 Max: 69 BP Min: 114/46 Max: 154/78 Resp Min: 16 Max: 20 SpO2 Min: 94 % Max: 99 % Intake/Output Summary (Last 24 hours) at 12/12/2022 0909 Last data filed at 12/12/2022 0445 Gross per 24 hour Intake 480 ml Output 1342 ml Net -862 ml Wt Readings from Last 3 Encounters: 12/06/22 78.9 kg (173 lb 15.1 oz) 12/05/22 79.3 kg (174 lb 12.8 oz) 11/10/22 69.5 kg (153 lb 4.8 oz) Temp Av.7 ??C (98 ??F) Min: 36.5 ??C (97.7 ??F) Max: 37 ??C (98.6 ??F) BP Min: 114/46 Max: 154/78 Pulse Av.3 Min: 55 Max: 69 Resp Av.3 Min: 16 Max: 20 SpO2 Av.7 % Min: 94 % Max: 99 % Most Recent: Vitals: 12/12/22823 BP: 130/62 Pulse: 61 Resp: 18 Temp: 36.7 ??C (98.1 ??F) SpO2: 95% I/O last 2 completed shifts: In: 480 [P.O.:480] Out: 1961 [Urine:1961] No intake/output data recorded. Current Facility-Administered Medications Medication Dose Route Frequency Last Rate Last Admin albuterol HFA (PROVENTIL HFA,VENTOLIN HFA,PROAIR HFA) 90 mcg/actuation inhaler 2 puff 2 puff inhalation Q4H PRN (RT) amLODIPine (NORVASC) tablet 10 mg 10 mg oral Nightly 10 mg at 12/11/222144 atorvastatin (LIPITOR) tablet 20 mg 20 mg oral Nightly 20 mg at 12/11/222144 benztropine (COGENTIN) tablet 1.5 mg 1.5 mg oral Nightly 1.5 mg at 12/11/222144 carvediloL (COREG) tablet 6.25 mg 6.25 mg oral BID with meals (bkfst, dinner) 6.25 mg at 12/12/22 09 dextrose oral liquid liquid 15 g 15 g oral Q15 Min PRN 15 g at 12/11/22 1710 Or dextrose (D10W) 10% bolus 250 mL 250 mL intravenous Q15 Min PRN famotidine (PEPCID) tablet 10 mg 10 mg oral Daily 10 mg at 06/23/23 0904 ferric gluconate (FERRLECIT) 125 mg of elemental iron in sodium chloride 0.9% 100 mL IVPB 125 mg ofelemental iron intravenous Once per day on Thu 110 mL/hr at 12/10/22 08 125 mg of elemental iron at 12/10/22830 ferrous sulfate delayed release tablet 65 mg of elemental iron 65 mg of elemental iron oral Daily with breakfast 65 mg of elemental iron at 12/12/22904 furosemide (LASIX) tablet 40 mg 40 mg oral BID DIURETIC 40 mg at 12/12/22 09 glucagon injection 1 mg 1 mg intramuscular Q30 Min PRN heparin 5,000 unit/mL injection 5,000 Units 5,000 Units subcutaneous Q8H SOL 5,000 Units at 12/12/22620 insulin glargine (LANTUS, SEMGLEE) 100 unit/mL injection 15 Units 15 Units subcutaneous Nightly 15 Units at 12/11/222144 insulin lispro (HumaLOG, ADMELOG) 100 unit/mL injection 0-4 Units 0-4 Units subcutaneous Nightly insulin lispro (HumaLOG, ADMELOG) 100 unit/mL injection 0-5 Units 0-5 Units subcutaneous TID with meals 1 Units at 12/12/22903 insulin lispro (HumaLOG, ADMELOG) 100 unit/mL injection 7 Units 7 Units subcutaneous TID with meals7 Units at 12/12/22903 metroNIDAZOLE (FLAGYL) tablet 500 mg 500 mg oral TID 500 mg at 12/12/22620 polyethylene glycol (MIRALAX) packet 17 g 17 g oral Daily PRN pregabalin (LYRICA) capsule 75 mg 75 mg oral Nightly 75 mg at 12/11/222144 risperiDONE (RisperDAL) tablet 2 mg 2 mg oral Nightly 2 mg at 12/11/222144 Continuous Medications Medication Dose Last Rate LDA: PICC Single Lumen 11/11/22 Non-tunneled Power Left Brachial;Upper arm (Active) Placement Date/Time: 11/11/22 1310 Placed by External Staff?: Other hospital Catheter Time Out Checklist Completed: Yes Hand Hygiene Performed: Yes Site Prep: Chlorhexidine Site Prep Agent has Completely Dried Before Insertion: Yes All 5 Steril... Number of days: 28 External Urinary Catheter (Active) Placement Date/Time: 12/06/22 1700 Inserted by: SWATI LAY External Catheter Type: Female External Urinary Catheter Sizes: Female- One size Number of days: 3 Vent settings: Hemodynamic parameters for last 24 hours: Physical Exam: General Appearance: Alert, cooperative, no distress, appears stated age, well developed, well nourished Head: Normocephalic, without obvious abnormality, atraumatic Eyes: PERRL, conjunctiva/corneas clear, EOM's intact, both eyes, anicteric Neck: Supple, symmetrical, trachea midline, no adenopathy; thyroid: No enlargement/tenderness/nodules; no carotid bruits, No JVD Lungs: Clear to auscultation bilaterally, respirations unlabored Cardiovascular: Regular rate and rhythm, S1 and S2 normal, no murmur, rub or gallop Abdomen: Soft, non-tender, bowel sounds active all four quadrants, non-distended Extremities: Extremities normal, +1 LE edema Skin: Skin color, texture, turgor normal, no rashes, lesions or bruising Neurologic: Alert & oriented person, + tremor Psychosocial: flat Dialysis Access Exam: Lab/Radiology/Diagnostic Review: Recent Labs Lab Units 12/12/22 0724 12/11/22 2226 12/11/22 0811 12/11/22 0509 12/10/22 0726 12/10/22 0542 SODIUM mmol/L -- 139 -- 144 -- 144 POTASSIUM PLASMA mmol/L -- 4.8 -- 4.5 -- 4.6 CHLORIDE mmol/L -- 109 -- 112* -- 112* CO2 mmol/L -- 17* -- 19* -- 19* BUN SERUM mg/dL -- 60* -- 67* -- 69* CREATININE mg/dL -- 2.33* -- 2.62* -- 2.69* [id number] mL/min/1.73 m2 -- 22 -- 19 -- 18 GLUCOSE mg/dL -- 188 -- 83 -- 158 POC GLUCOSE MONITOR mg/dL 197 -- < > -- < > -- CALCIUM mg/dL -- 8.9 -- 8.8 -- 8.9 ALBUMIN g/dL -- 2.9* -- 3.0* -- 3.1* PHOSPHORUS PLASMA mg/dL -- 4.1 -- 4.9* -- 5.2* < > = values in this interval not displayed. Additional Labs: Recent Labs Lab Units 12/11/22 2226 12/11/22 0509 12/10/22 0542 WBC K/cumm 10.5* 10.1* 10.6* HEMOGLOBIN g/dL 8.3* 7.8* 7.1* HEMATOCRIT % 26.6* 25.7* 23.0* PLATELETS K/cumm 361 314 299 NEUTROS PCT % 69.9 60.4 68.6 LYMPHS PCT % 18.4 26.3 18.8 MONOS PCT % 8.4 9.6 9.2 EOS PCT % 2.2 2.6 2.4 Assessment/Plan CKD: stage 3b, due to dm, htn. Expect some rise due to diuresis. HTN: adequately controlled Edema: mostly LE some combination of CKD, pulmonary HTN, on going diuresis. Will add metolazone to regimen As off 12/11/2022 still has edema, with diuresis expect some rise in creatinine Anemia: combination of CKD, possible iron deficiency Dyspnea: due to volume overload. Hyperkalemia: mild. 7. Tremors: possible related to parkinson. May benefit form neurology consult. 8. Anemia: check iron status 9. Metabolic acidosis: suspect renal failure related DICTATION DISCLAIMER: This note is transcribed using the Epoxy direct voice recognition system without human x ray tech. In an effort to expedite patient care, this note has not been adjusted for typographical, grammatical, and syntax by a trained medical instrument technician. Portions of this note have been copied from the medical record, but edited appropriately to accurately reflect the patient's current clinical state. Jimbo Strauss Office/exchange: [phone] Pager: [phone] * Krishna Morgan MD - 12/11/2022 12:51 PM CDT Images from the original note were not included. Infectious Disease Sixto Chakraborty Admit Date: 12/06/2022 LOS: 5 Days Consulting physician:Bev Adames MD Reason for consult: osteomyelitis Interval Course No new events overnight New Symptoms Patient has no new symptoms, improved creatinine ATBX Vanc/Flagyl Data Vitals: 12/11/22 0000 12/11/22 0400 12/11/22 0822 12/11/22 1136 BP: 100/47 118/64 128/64 135/73 BP Location: Right arm Right arm Patient Position: Lying;HOB 30 degrees Lying;HOB 30 degrees Lying;Other (Comment) Reclining;Sitting Pulse: 57 66 66 69 Resp: 17 17 16 16 Temp: 36.5 ??C (97.7 ??F) 36.8 ??C (98.2 ??F) 36.6 ??C (97.9 ??F) 36.6 ??C (97.8 ??F) TempSrc: Oral Oral Oral Oral SpO2: 94% 94% 97% 96% Weight: Height: Temp (24hrs), Av.6 ??C (97.9 ??F), Min:36.5 ??C (97.7 ??F), Max:36.8 ??C (98.2 ??F) Recent Labs Lab Units 12/11/22 0509 12/10/22 0542 12/09/22 0528 WBC K/cumm 10.1* 10.6* 8.3 HEMOGLOBIN g/dL 7.8* 7.1* 7.5* HEMATOCRIT % 25.7* 23.0* 24.3* PLATELETS K/cumm 314 299 293 Recent Labs Lab Units 12/11/22 0509 12/10/22 0542 12/09/22 0528 BUN SERUM mg/dL 67* 69* 68* CREATININE mg/dL 2.62* 2.69* 2.68* Scheduled Meds:amLODIPine, 10 mg, oral, Nightly atorvastatin, 20 mg, oral, Nightly benztropine, 1.5 mg, oral, Nightly carvediloL, 6.25 mg, oral, BID with meals (bkfst, dinner) cefepime, 2,000 mg, intravenous, Q24H SOL famotidine, 10 mg, oral, Daily ferric gluconate, 125 mg of elemental iron, intravenous, Once per day on Thu ferrous sulfate, 65 mg of elemental iron, oral, Daily with breakfast furosemide, 40 mg, oral, BID DIURETIC heparin, 5,000 Units, subcutaneous, Q8H SOL insulin glargine, 15 Units, subcutaneous, Nightly insulin lispro, 0-4 Units, subcutaneous, Nightly insulin lispro, 0-5 Units, subcutaneous, TID with meals insulin lispro, 7 Units, subcutaneous, TID with meals metroNIDAZOLE, 500 mg, oral, TID pregabalin, 75 mg, oral, Nightly risperiDONE, 2 mg, oral, Nightly vancomycin, 15 mg/kg, intravenous, Once Continuous Infusions: PRN Meds:. albuterol HFA dextrose OR dextrose glucagon polyethylene glycol Review of Systems: Gen: denies fevers, denies chills, denies sweats, denies unintentional weight loss HEENT: Denies sore throat, denies thrush Neck: Denies palpable lymph nodes, denies neck stiffness Cv: denies chest pain, denies palpitations Resp: Denies SOB, Denies orthopnea Gi: Denies abdominal pain, Denies diarrhea, denies n/v Extrem: Denies gross deformities, denies joint pain, denies myalgias Skin: Denies rashes, denies lesions Neuro: Denies weakness, denies paresthesias, denies memory loss Psych: denies depression, denies anxiety Objective: Vitals: 24hr Min/Max: Temp Min: 36.2 ??C (97.2 ??F) Max: 37 ??C (98.6 ??F) Pulse Min: 66 Max: 90 BP Min: 119/74 Max: 142/53 Resp Min: 12 Max: 22 SpO2 Min: 90 % Max: 99 % Most Recent : Vitals Vitals: 12/07/22 0000 12/07/22 0400 12/07/22 0827 12/07/22 1146 BP: 126/76 123/72 119/74 141/66 BP Location: Right arm Right arm Right arm Right arm Patient Position: Lying Lying Lying Lying Pulse: 90 69 75 70 Resp: Temp: 37 ??C (98.6 ??F) 36.4 ??C (97.6 ??F) 36.8 ??C (98.3 ??F) 36.7 ??C (98.1 ??F) TempSrc: Axillary Axillary Oral Oral SpO2: 90% 92% 92% 98% Weight: Height: Physical Exam: General appearance: alert, cooperative, no distress HEENT: (-)icterus, Oropharnyx is normal, NCAT Neck: No palpable LN Lungs: Course breath sounds and symmetric; minimal respiratory effort, no r/w/c Heart: regular rhythm, normal S1 and S2, no m/r/g Abdomen: soft without mass, non-tender, +bowel sounds, no HSM Skin: (-)new rashes, right great toe with dry gangrene. No drainage. Minimal erythema around the toe. MSK: no gross deformities, FROM Vascular: no Edema, Neuro: No focal deficits Psych: Appropriate mood and affect Impression: 1 x 1 cm ulceration to Tip of right great toe, dry wound bed, no odor, no drainage Lab/Radiology/Diagnostic Review: 12/07 chest x-ray FINDINGS: There is a tiny right effusion. The remainder of the lungs are clear. Heart not enlarged. Aortic atherosclerosis. No failure. The tip of a left PICC line is in the distal superior vena cava. Cultures 11/08 right toe culture with MRSA and mixed Gram-positive organisms Respiratory PCR negative 11/30 urine culture with clinically insignificant MRI Foot Right WO Contrast Result Date: 11/10/2022 There is soft tissue swelling involving the right great toe with a distal wound. There is are smallsites of erosion involving the great toe distal tuft with associated marrow edema extending into the distal phalanx base. No drainable fluid collection. There has been prior application of the 4th digit through the metatarsal neck. There is subcutaneous edema about the ankle and along the dorsum ofthe foot. Mild first metatarsophalangeal joint chondrosis. There is subacute on chronic denervationof intrinsic foot musculature. There is tendinopathy of the distal Achilles tendon. Impression: 1. Distal right great toe wound with osteomyelitis of the distal phalanx and small erosions of the distal tuft. Assessment: 1. Pneumonia 2. Right great toe ulcer with osteomyelitis patient is supposed to be on vanc and Flagyl through 12/23 3. Dementia 4. Acute kidney injury 5. CHF/diabetes mellitus/schizophrenia 6. Bilateral pleural effusions Plan: Continue vanc and Flagyl to 12/23 DC cefepime Discuss with Nephrology about the vancomycin and renal insufficiency, Nephrology thinks it is related to diuretics and not vancomycin induced and recommended to continue, tried to call the daughter johnny to discuss, voicemail was full 4. CBC, CMP, vanc level bi weekly faxed to [phone] 5. Okay to DC from ID perspective * Alex Ta, [facility] - 12/11/2022 9:27 AM CDT Pharmacokinetic Consult - Vancomycin Dosing Sixto Chakraborty is a 72 y.o. female who has been consulted for vancomycin dosing for bone/joint infection. Relevant clinical data and objective history reviewed: Creatinine Date Value Ref Range Status 12/11/2022 2.62 (H) 0.60 - 1.10 mg/dL Final 12/10/2022 2.69 (H) 0.60 - 1.10 mg/dL Final 12/09/2022 2.68 (H) 0.60 - 1.10 mg/dL Final BUN Date Value Ref Range Status 12/11/2022 67 (H) 6 - 25 mg/dL Final 12/10/2022 69 (H) 6 - 25 mg/dL Final 12/09/2022 68 (H) 8 - 25 mg/dL Final Estimated Creatinine Clearance: 15.4 mL/min (A) (by C-G 65 yr and older- minimum SCr 0.8 based on SCr of 2.62 mg/dL (H)). I/O last 3 completed shifts: In: 0 Out: 875 [Urine:875] Lab Results Component Value Date/Time WBC 10.1 (H) 12/11/2022 05:09 AM HGB 7.8 (L) 12/11/2022 05:09 AM HCT 25.7 (L) 12/11/2022 05:09 AM MCV 96.6 (H) 12/11/2022 05:09 AM LABPLAT 314 12/11/2022 05:09 AM Temp Readings from Last 3 Encounters: 12/11/22 36.6 ??C (97.9 ??F) (Oral) 12/05/22 37 ??C (98.6 ??F) (Oral) 11/13/22 36.7 ??C (98.1 ??F) (Oral) Patient Weight 12/06/22 78.9 kg (173 lb 15.1 oz) Lab Results Component Value Date DIRECTEXAM 11/08/2022 Stain: No polymorphonuclear leukocytes seen. Rare Gram Positive Bacilli DIRECTEXAM 10/03/2022 Stain: No polymorphonuclear leukocytes seen. No organisms seen. DIRECTEXAM 10/02/2022 Molecular Analysis: Streptococcus species detected by the Verigene Blood Culture Nucleic Acid Test. This test does not exclude the possibility of a mixed bacterial infection. Notification of: Streptococcus species called to and read back by: Zoran Baca RN [phone] on 10/03/2022 14:12:18 by: Marta Simeon SC DIRECTEXAM 10/02/2022 Stain: Gram Positive Cocci in pairs and chains Time to culture positivity (anaerobic media): 11.1 hours Time to culture positivity (aerobic media): 11 hours Notification of: Gram Positive Cocci in pairs and chains called to and read back by: Nelia Crouch [phone] on 10/03/2022 08:51:39 by: Maddie Barrera MLS MICROBIOLOGY 11/30/2022 Final Report: Less than 100,000 colonies/mL (clinically insignificant growth based on current clinical standards) MICROBIOLOGY (.) 11/08/2022 Final Report: Abundant Mixed Gram-positive microorganisms Includes the following: Few Staphylococcus aureus Methicillin resistant (MRSA) by penicillin binding protein 2a (PBP2a) testing. MICROBIOLOGY Final Report: No growth 11/06/2022 MICROBIOLOGY Final Report: No growth 11/06/2022 ORGANISM (CLINICALLY INSIGNIFICANT GROWTH 11/30/2022 ORGANISM STAPHYLOCOCCUS AUREUS 11/08/2022 ORGANISM MIXED GRAM POSITIVE MICROORGANISMS 11/08/2022 Assessment/Plan The patient has received vancomycin 2000 mg once on 12/08/22 at 20:16. Vancomycin random level returned as 19.8 on 12/11/22 at 05:09. Interval/Dose adjustment will be made. Will redose vancomycin 1250 mg IV once on 12/11/22 at 10:00. Next vancomycin random level ordered to be drawn 12/13/22 at 06:00. Pharmacy will continue to follow the patient???s culture results and clinical progress daily. Day 4 of therapy Alex Ta RPh * Isidro Hahn MD - 12/11/2022 7:38 AM CDT [facility] - Cardiology [facility] Progress Note Admit Date: 12/06/2022 2:04 PM @HDAYS@ PCP: Cherelle Corcoran MD Patient seen and examined Chart , telemtry reviewed Symptoms Patient denies chest pain, dyspnea, palpitations, sweating or syncope. Urinary retention overnight requiring catheterization Data Vitals: 12/10/22 1600 12/10/22 2000 12/11/22 0000 12/11/22 0400 BP: 128/70 100/47 118/64 BP Location: Patient Position: Lying;HOB 30 degrees Lying;HOB 30 degrees Lying;HOB 30 degrees Pulse: 61 60 57 66 Resp: Temp: 36.6 ??C (97.8 ??F) 36.5 ??C (97.7 ??F) 36.8 ??C (98.2 ??F) TempSrc: Oral Oral Oral SpO2: 97% 94% 94% Weight: Height: Intake/Output Summary (Last 24 hours) at 12/11/2022 0738 Last data filed at 12/11/2022 0102 Gross per 24 hour Intake 0 ml Output 875 ml Net -875 ml Lab Results Component Value Date WBC 10.1 (H) 12/11/2022 WBC 10.6 (H) 12/10/2022 WBC 8.3 12/09/2022 HGB 7.8 (L) 12/11/2022 HGB 7.1 (L) 12/10/2022 HGB 7.5 (L) 12/09/2022 HCT 25.7 (L) 12/11/2022 HCT 23.0 (L) 12/10/2022 HCT 24.3 (L) 12/09/2022 Lab Results Component Value Date SODIUM 144 12/11/2022 SODIUM 144 12/10/2022 SODIUM 143 12/09/2022 POTASSIUM 4.5 12/11/2022 POTASSIUM 4.6 12/10/2022 POTASSIUM 4.6 12/09/2022 CHLORIDE 112 (H) 12/11/2022 CHLORIDE 112 (H) 12/10/2022 CHLORIDE 111 (H) 12/09/2022 CO2 19 (L) 12/11/2022 CO2 19 (L) 12/10/2022 CO2 20 (L) 12/09/2022 CREATININE 2.62 (H) 12/11/2022 CREATININE 2.69 (H) 12/10/2022 CREATININE 2.68 (H) 12/09/2022 GLUCOSE 83 12/11/2022 GLUCOSE 71 12/10/2022 GLUCOSE 150 12/10/2022 GLUCOSE 154 12/10/2022 GLUCOSE 158 12/10/2022 GLUCOSE 92 12/09/2022 CALCIUM 8.8 12/11/2022 CALCIUM 8.9 12/10/2022 CALCIUM 8.9 12/09/2022 No results found for: PTT No results found for: PT No results found for: INR No results found for: BNP No components found for: TROPONIN No results found for: CHOL, TRIG, HDL, LDLCALC Lab Results Component Value Date ALBUMIN 3.0 (L) 12/11/2022 ALBUMIN 3.1 (L) 12/10/2022 ALBUMIN 2.9 (L) 12/09/2022 No components found for: MAGMGDL No results found for: TSH No results found for: T3FREE No results found for: A1NONWT Pain Assessment: No/denies pain Clinical Progression: Not changed Meds MEDICATIONS FOR CURRENT ENCOUNTER: SCHEDULED MEDICATIONS: Scheduled Medications Medication Dose Route Frequency amLODIPine (NORVASC) tablet 10 mg 10 mg oral Nightly atorvastatin (LIPITOR) tablet 20 mg 20 mg oral Nightly benztropine (COGENTIN) tablet 1.5 mg 1.5 mg oral Nightly carvediloL (COREG) tablet 12.5 mg 12.5 mg oral BID with meals (bkfst, dinner) cefepime (MAXIPIME) 2,000 mg in sodium chloride 0.9% 100 mL IVPB 2,000 mg intravenous Q24H SOL famotidine (PEPCID) tablet 10 mg 10 mg oral Daily ferric gluconate (FERRLECIT) 125 mg of elemental iron in sodium chloride 0.9% 100 mL IVPB 125 mg ofelemental iron intravenous Once per day on Thu ferrous sulfate delayed release tablet 65 mg of elemental iron 65 mg of elemental iron oral Daily with breakfast furosemide (LASIX) tablet 40 mg 40 mg oral BID DIURETIC heparin 5,000 unit/mL injection 5,000 Units 5,000 Units subcutaneous Q8H SOL insulin glargine (LANTUS, SEMGLEE) 100 unit/mL injection 15 Units 15 Units subcutaneous Nightly insulin lispro (HumaLOG, ADMELOG) 100 unit/mL injection 0-4 Units 0-4 Units subcutaneous Nightly insulin lispro (HumaLOG, ADMELOG) 100 unit/mL injection 0-5 Units 0-5 Units subcutaneous TID with meals insulin lispro (HumaLOG, ADMELOG) 100 unit/mL injection 7 Units 7 Units subcutaneous TID with meals metroNIDAZOLE (FLAGYL) tablet 500 mg 500 mg oral TID pregabalin (LYRICA) capsule 75 mg 75 mg oral Nightly risperiDONE (RisperDAL) tablet 2 mg 2 mg oral Nightly CONTINUOUS MEDICATIONS: Continuous Medications Medication Dose Last Rate PRN MEDICATIONS: PRN Medications Medication Dose Route Frequency Last Admin albuterol HFA (PROVENTIL HFA,VENTOLIN HFA,PROAIR HFA) 90 mcg/actuation inhaler 2 puff 2 puff inhalation Q4H PRN (RT) dextrose oral liquid liquid 15 g 15 g oral Q15 Min PRN Or dextrose (D10W) 10% bolus 250 mL 250 mL intravenous Q15 Min PRN glucagon injection 1 mg 1 mg intramuscular Q30 Min PRN polyethylene glycol (MIRALAX) packet 17 g 17 g oral Daily PRN No Known Allergies Review of Systems: All systems were reviewed. Pertinent positives are mentioned above. Exam General appearance: alert, cooperative, no distress Neck: No JVD. No carotid Bruit Chest: Adequate air entry bilaterally,No added sounds Cardiovascular: regular rate, rhythm, normal S1 and S2, without rub, gallops PSM 2/6 Abdomen: soft without mass, non-tender, with normal bowel sounds Extremities: no clubbing, cyanosis 1+ edema. Heel protectors bilaterally Assessment /Plan Volume overload contributing to edema due to CKD - with acute on chronic kidney disease - managed by Nephrology CKD stage III with Brenda I nephrology is managing On diuretics Creatinine is stable Acute on chronic diastolic heart failure - normal LV function nonischemic MPI recently - elevated troponin due to renal dysfunction does not represent ACS Essential hypertension periods of low reading. Carvedilol dose decreased as patient has bradycardia Diabetes mellitus type 2 Right great toe ulcer with osteomyelitis - on antibiotic therapy as per Infectious Disease - normal TEO and TBI Iron deficiency anemia getting IV iron infusion. Sinus bradycardia. Is symptomatic carvedilol dose reduced Isidro Hahn MD * Jimbo Strauss MD - 12/10/2022 5:00 PM CDT Nephrology Daily Progress [facility]# [id number] SS#: [id number] Phone#: [phone] #: [phone] Subjective Chief complaint of Interval History: feels well, still some what confused, poor po intake Objective Vitals: 24hr Min/Max: Temp Min: 36.5 ??C (97.7 ??F) Max: 37 ??C (98.6 ??F) Pulse Min: 55 Max: 69 BP Min: 114/46 Max: 154/78 Resp Min: 16 Max: 20 SpO2 Min: 94 % Max: 99 % Intake/Output Summary (Last 24 hours) at 12/12/2022 0843 Last data filed at 12/12/2022 0445 Gross per 24 hour Intake 480 ml Output 1342 ml Net -862 ml Wt Readings from Last 3 Encounters: 12/06/22 78.9 kg (173 lb 15.1 oz) 12/05/22 79.3 kg (174 lb 12.8 oz) 11/10/22 69.5 kg (153 lb 4.8 oz) Temp Av.7 ??C (98 ??F) Min: 36.5 ??C (97.7 ??F) Max: 37 ??C (98.6 ??F) BP Min: 114/46 Max: 154/78 Pulse Av.3 Min: 55 Max: 69 Resp Av.3 Min: 16 Max: 20 SpO2 Av.7 % Min: 94 % Max: 99 % Most Recent: Vitals: 12/12/22 0824 BP: 130/62 Pulse: 61 Resp: 18 Temp: 36.7 ??C (98.1 ??F) SpO2: 95% I/O last 2 completed shifts: In: 480 [P.O.:480] Out: 1961 [Urine:1961] No intake/output data recorded. Current Facility-Administered Medications Medication Dose Route Frequency Last Rate Last Admin albuterol HFA (PROVENTIL HFA,VENTOLIN HFA,PROAIR HFA) 90 mcg/actuation inhaler 2 puff 2 puff inhalation Q4H PRN (RT) amLODIPine (NORVASC) tablet 10 mg 10 mg oral Nightly 10 mg at 12/11/222144 atorvastatin (LIPITOR) tablet 20 mg 20 mg oral Nightly 20 mg at 12/11/222144 benztropine (COGENTIN) tablet 1.5 mg 1.5 mg oral Nightly 1.5 mg at 12/11/222144 carvediloL (COREG) tablet 6.25 mg 6.25 mg oral BID with meals (bkfst, dinner) 6.25 mg at 12/11/22 1833 dextrose oral liquid liquid 15 g 15 g oral Q15 Min PRN 15 g at 12/11/22 1710 Or dextrose (D10W) 10% bolus 250 mL 250 mL intravenous Q15 Min PRN famotidine (PEPCID) tablet 10 mg 10 mg oral Daily 10 mg at 12/11/22 1018 ferric gluconate (FERRLECIT) 125 mg of elemental iron in sodium chloride 0.9% 100 mL IVPB 125 mg ofelemental iron intravenous Once per day on Thu 110 mL/hr at 12/10/22 0831 125 mg of elemental iron at 12/10/22 0831 ferrous sulfate delayed release tablet 65 mg of elemental iron 65 mg of elemental iron oral Daily with breakfast 65 mg of elemental iron at 12/11/22 1000 furosemide (LASIX) tablet 40 mg 40 mg oral BID DIURETIC 40 mg at 12/11/22 1700 glucagon injection 1 mg 1 mg intramuscular Q30 Min PRN heparin 5,000 unit/mL injection 5,000 Units 5,000 Units subcutaneous Q8H SOL 5,000 Units at 12/12/22 0621 insulin glargine (LANTUS, SEMGLEE) 100 unit/mL injection 15 Units 15 Units subcutaneous Nightly 15 Units at 12/11/222144 insulin lispro (HumaLOG, ADMELOG) 100 unit/mL injection 0-4 Units 0-4 Units subcutaneous Nightly insulin lispro (HumaLOG, ADMELOG) 100 unit/mL injection 0-5 Units 0-5 Units subcutaneous TID with meals 1 Units at 12/10/22 1757 insulin lispro (HumaLOG, ADMELOG) 100 unit/mL injection 7 Units 7 Units subcutaneous TID with meals7 Units at 12/11/22 1323 metroNIDAZOLE (FLAGYL) tablet 500 mg 500 mg oral TID 500 mg at 12/12/22 0621 polyethylene glycol (MIRALAX) packet 17 g 17 g oral Daily PRN pregabalin (LYRICA) capsule 75 mg 75 mg oral Nightly 75 mg at 12/11/222144 risperiDONE (RisperDAL) tablet 2 mg 2 mg oral Nightly 2 mg at 12/11/222144 Continuous Medications Medication Dose Last Rate LDA: PICC Single Lumen 11/11/22 Non-tunneled Power Left Brachial;Upper arm (Active) Placement Date/Time: 11/11/22 1310 Placed by External Staff?: Other hospital Catheter Time Out Checklist Completed: Yes Hand Hygiene Performed: Yes Site Prep: Chlorhexidine Site Prep Agent has Completely Dried Before Insertion: Yes All 5 Steril... Number of days: 28 External Urinary Catheter (Active) Placement Date/Time: 12/06/22 1700 Inserted by: SWATI LAY External Catheter Type: Female External Urinary Catheter Sizes: Female- One size Number of days: 3 Vent settings: Hemodynamic parameters for last 24 hours: Physical Exam: General Appearance: Alert, cooperative, no distress, appears stated age, well developed, well nourished Head: Normocephalic, without obvious abnormality, atraumatic Eyes: PERRL, conjunctiva/corneas clear, EOM's intact, both eyes, anicteric Neck: Supple, symmetrical, trachea midline, no adenopathy; thyroid: No enlargement/tenderness/nodules; no carotid bruits, No JVD Lungs: Clear to auscultation bilaterally, respirations unlabored Cardiovascular: Regular rate and rhythm, S1 and S2 normal, no murmur, rub or gallop Abdomen: Soft, non-tender, bowel sounds active all four quadrants, non-distended Extremities: Extremities normal, +1 LE edema Skin: Skin color, texture, turgor normal, no rashes, lesions or bruising Neurologic: Alert & oriented person, + tremor Psychosocial: flat Dialysis Access Exam: Lab/Radiology/Diagnostic Review: Recent Labs Lab Units 12/12/22 0724 12/11/22 2226 12/11/22 0811 12/11/22 0509 12/10/22 0726 12/10/22 0542 SODIUM mmol/L -- 139 -- 144 -- 144 POTASSIUM PLASMA mmol/L -- 4.8 -- 4.5 -- 4.6 CHLORIDE mmol/L -- 109 -- 112* -- 112* CO2 mmol/L -- 17* -- 19* -- 19* BUN SERUM mg/dL -- 60* -- 67* -- 69* CREATININE mg/dL -- 2.33* -- 2.62* -- 2.69* [id number] mL/min/1.73 m2 -- 22 -- 19 -- 18 GLUCOSE mg/dL -- 188 -- 83 -- 158 POC GLUCOSE MONITOR mg/dL 197 -- < > -- < > -- CALCIUM mg/dL -- 8.9 -- 8.8 -- 8.9 ALBUMIN g/dL -- 2.9* -- 3.0* -- 3.1* PHOSPHORUS PLASMA mg/dL -- 4.1 -- 4.9* -- 5.2* < > = values in this interval not displayed. Additional Labs: Recent Labs Lab Units 12/11/22222512/11/22 0509 12/10/22 0542 WBC K/cumm 10.5* 10.1* 10.6* HEMOGLOBIN g/dL 8.3* 7.8* 7.1* HEMATOCRIT % 26.6* 25.7* 23.0* PLATELETS K/cumm 361 314 299 NEUTROS PCT % 69.9 60.4 68.6 LYMPHS PCT % 18.4 26.3 18.8 MONOS PCT % 8.4 9.6 9.2 EOS PCT % 2.2 2.6 2.4 Assessment/Plan CKD: stage 3b, due to dm, htn. Expect some rise due to diuresis. HTN: adequately controlled Edema: mostly LE some combination of CKD, pulmonary HTN, on going diuresis. Will add metolazone to regimen Anemia: combination of CKD, possible iron deficiency Dyspnea: due to volume overload. Hyperkalemia: mild. 7. Tremors: possible related to parkinson. May benefit form neurology consult. 8. Anemia: check iron status DICTATION DISCLAIMER: This note is transcribed using the Epoxy direct voice recognition system without human x ray tech. In an effort to expedite patient care, this note has not been adjusted for typographical, grammatical, and syntax by a trained medical instrument technician. Portions of this note have been copied from the medical record, but edited appropriately to accurately reflect the patient's current clinical state. Jimbo Strauss Office/exchange: [phone] Pager: [phone] * Gill Gamboa MD - 12/10/2022 1:39 PM CDT General Medicine Progress Note Interval Events: This is a 72-year-old female with history of CHF, chronic kidney disease, osteomyelitis, diabetes, schizophrenia who came to the hospital with complaint of shortness a breath. Patient noted to be volume overloaded. Concern on chronic diastolic heart failure. Nephrology guiding diuresis. Subjective: Chief complaint: Shortness of breath. Patient seen reports her dyspnea is better. Objective: Vitals: 24hr Min/Max: Temp Min: 36.3 ??C (97.3 ??F) Max: 37.2 ??C (98.9 ??F) Pulse Min: 64 Max: 114 BP Min: 120/65 Max: 145/53 Resp Min: 18 Max: 24 SpO2 Min: 93 % Max: 95 % Most Recent: Vitals: 12/10/22 0800 12/10/22 0839 12/10/22 1150 12/10/22 1200 BP: 131/56 133/55 BP Location: Right arm Right arm Patient Position: Lying Lying Pulse: 66 69 66 69 Resp: 20 Temp: 37.2 ??C (98.9 ??F) 37.2 ??C (98.9 ??F) TempSrc: Oral SpO2: 93% 95% Weight: Height: Intake/Output Summary (Last 24 hours) at 12/10/2022 1410 Last data filed at 12/10/2022 1003 Gross per 24 hour Intake 0 ml Output -- Net 0 ml Physical Exam: Physical Exam GEN: Alert. NAD HENT: Normocephalic. Atraumatic. CVS: RRR CHEST: Clear bilaterally ABD: soft. ND EXT: no edema Lab/Radiology/Diagnostic Review: Reviewed. Recent Results (from the past 24 hour(s)) Vancomycin level random Collection Time: 12/09/22 4:52 PM Result Value Ref Range Vancomycin random 26.4 mcg/mL POCT glucose Collection Time: 12/09/22 5:13 PM Result Value Ref Range Glucose, POC 184 70 - 199 mg/dL POCT glucose Collection Time: 12/09/22 9:15 PM Result Value Ref Range Glucose, POC 151 70 - 199 mg/dL POCT glucose Collection Time: 12/10/22 3:07 AM Result Value Ref Range Glucose, POC 175 70 - 199 mg/dL CBC with auto differential Collection Time: 12/10/22 5:42 AM Result Value Ref Range WBC 10.6 (H) 3.8 - 9.9 K/cumm Hgb 7.1 (L) 11.9 - 15.5 g/dL Hct 23.0 (L) 35.6 - 45.5 % Plt 299 150 - 400 K/cumm MPV 11.1 9.1 - 12.3 fL RBC 2.39 (L) 3.90 - 5.20 M/cumm MCV 96.2 81.3 - 96.4 fL MCH 29.7 27.1 - 33.3 pg MCHC 30.9 (L) 32.3 - 35.7 g/dL RDW CV 16.2 (H) 11.1 - 14.9 % RDW SD 56.4 (H) 35.7 - 48.1 fL NRBC abs 0.10 (H) 0.00 - 0.01 K/cumm Renal function panel Collection Time: 12/10/22 5:42 AM Result Value Ref Range Sodium 144 135 - 145 mmol/L Potassium, pl 4.6 3.3 - 4.9 mmol/L Chloride 112 (H) 97 - 110 mmol/L CO2 19 (L) 22 - 32 mmol/L Anion gap 13 2 - 15 mmol/L BUN 69 (H) 6 - 25 mg/dL Creatinine 2.69 (H) 0.60 - 1.10 mg/dL Glucose 158 70 - 199 mg/dL Calcium 8.9 8.5 - 10.3 mg/dL Phosphorus, pl 5.2 (H) 2.3 - 4.5 mg/dL Albumin 3.1 (L) 3.5 - 5.0 g/dL Magnesium Collection Time: 12/10/22 5:42 AM Result Value Ref Range Magnesium 2.4 1.4 - 2.5 mg/dL Vancomycin level random Collection Time: 12/10/22 5:42 AM Result Value Ref Range Vancomycin random 24.2 mcg/mL Differential, auto Collection Time: 12/10/22 5:42 AM Result Value Ref Range Neutrophil abs 7.3 (H) 1.7 - 6.5 K/cumm Imm gran abs 0.1 0.0 - 0.1 K/cumm Lymphocyte abs 2.0 0.8 - 3.3 K/cumm Monocyte abs 1.0 (H) 0.2 - 0.8 K/cumm Eosinophil abs 0.3 0.0 - 0.5 K/cumm Basophil abs 0.0 0.0 - 0.1 K/cumm Neutrophil pct 68.6 % Imm gran pct 0.6 % Lymphocyte pct 18.8 % Monocyte pct 9.2 % Eosinophil pct 2.4 % Basophil pct 0.4 % eGFR Collection Time: 12/10/22 5:42 AM Result Value Ref Range eGFR 18 mL/min/1.73 m2 POCT glucose Collection Time: 12/10/22 7:26 AM Result Value Ref Range Glucose, POC 142 70 - 199 mg/dL POCT glucose Collection Time: 12/10/22 12:12 PM Result Value Ref Range Glucose, POC 154 70 - 199 mg/dL Assessment and Plan: Principal Problem: Acute on chronic diastolic congestive heart failure ([facility]) ([facility]) Active Problems: Type 2 diabetes mellitus with diabetic neuropathy, with long-term current use of insulin ([facility]) ([facility]) Schizoaffective disorder, bipolar type ([facility]) ([facility]) 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 2 diabetes mellitus ([facility]) ([facility]) Late onset Alzheimer's dementia without behavioral disturbance ([facility]) Osteomyelitis of great toe of right foot ([facility]) ([facility]) BRENDA (acute kidney injury) ([facility]) ([facility]) Bibasilar consolidations Movement disorder Acute hypoxemic respiratory failure. Secondary to acute on chronic congestive heart failure exacerbation. Monitor respiratory status closely. Wean O2 as tolerated. Acute on chronic diastolic congestive heart failure. Patient currently on oral Lasix 40 milligrams b.i.d.. Will continue to monitor closely. Acute on chronic kidney disease stage 3. Continue to monitor response to diuretics. Monitor creatinine closely. Type 2 diabetes. Continue Lantus 15 units q.h.s.. Monitor Accu-Cheks q.a.c. q.h.s. adjust with a low-dose sliding scale as needed. Essential hypertension continue amlodipine 10 milligrams daily. Right great toe ulcer with osteomyelitis. Plan noted to continue IV vancomycin/Flagyl until 12/23. Disposition: Patient now transitioned to oral diuretics. Will initiate discharge planning. My total encounter time on 12/10/2022 was 36 minutes which was spent in the activities documented inthe note. This includes time spent prior to the visit and after the visit in direct care of the patient. This time does not include time spent in any separately reportable services. Gill Gamboa MD Hospitalist [phone] 32:10 PM * Krishna Morgan MD - 12/10/2022 12:24 PM CDT Images from the original note were not included. Infectious Disease Sixto Chakraborty Admit Date: 12/06/2022 LOS: 4 Days Consulting physician:Bev Adames MD Reason for consult: osteomyelitis Interval Course No new events overnight New Symptoms Patient has no new symptoms ATBX Vanc/cefepime/Flagyl Data Vitals: 12/10/22 0405 12/10/22 0800 12/10/22 0839 12/10/22 1150 BP: 131/56 133/55 BP Location: Right arm Right arm Patient Position: Lying Lying Pulse: 66 66 69 66 Resp: 20 Temp: 37.2 ??C (98.9 ??F) 37.2 ??C (98.9 ??F) TempSrc: Oral SpO2: 93% 95% Weight: Height: Temp (24hrs), Av.8 ??C (98.3 ??F), Min:36.3 ??C (97.3 ??F), Max:37.2 ??C (98.9 ??F) Recent Labs Lab Units 12/10/22 0542 12/09/22 0528 12/08/22 0801 WBC K/cumm 10.6* 8.3 8.0 HEMOGLOBIN g/dL 7.1* 7.5* 7.2* HEMATOCRIT % 23.0* 24.3* 23.2* PLATELETS K/cumm 299 293 294 Recent Labs Lab Units 12/10/22 0542 12/09/22 0528 12/08/22 0801 BUN SERUM mg/dL 69* 68* 67* CREATININE mg/dL 2.69* 2.68* 2.58* Scheduled Meds:amLODIPine, 10 mg, oral, Nightly atorvastatin, 20 mg, oral, Nightly benztropine, 1.5 mg, oral, Nightly carvediloL, 12.5 mg, oral, BID with meals (bkfst, dinner) cefepime, 2,000 mg, intravenous, Q24H SOL famotidine, 10 mg, oral, Daily ferric gluconate, 125 mg of elemental iron, intravenous, Once per day on Thu ferrous sulfate, 65 mg of elemental iron, oral, Daily with breakfast furosemide, 40 mg, oral, BID DIURETIC heparin, 5,000 Units, subcutaneous, Q8H SOL insulin glargine, 15 Units, subcutaneous, Nightly insulin lispro, 0-4 Units, subcutaneous, Nightly insulin lispro, 0-5 Units, subcutaneous, TID with meals insulin lispro, 7 Units, subcutaneous, TID with meals metroNIDAZOLE, 500 mg, oral, TID pregabalin, 75 mg, oral, Nightly risperiDONE, 2 mg, oral, Nightly Continuous Infusions: PRN Meds:. albuterol HFA dextrose OR dextrose glucagon polyethylene glycol Review of Systems: Gen: denies fevers, denies chills, denies sweats, denies unintentional weight loss HEENT: Denies sore throat, denies thrush Neck: Denies palpable lymph nodes, denies neck stiffness Cv: denies chest pain, denies palpitations Resp: Denies SOB, Denies orthopnea Gi: Denies abdominal pain, Denies diarrhea, denies n/v Extrem: Denies gross deformities, denies joint pain, denies myalgias Skin: Denies rashes, denies lesions Neuro: Denies weakness, denies paresthesias, denies memory loss Psych: denies depression, denies anxiety Objective: Vitals: 24hr Min/Max: Temp Min: 36.2 ??C (97.2 ??F) Max: 37 ??C (98.6 ??F) Pulse Min: 66 Max: 90 BP Min: 119/74 Max: 142/53 Resp Min: 12 Max: 22 SpO2 Min: 90 % Max: 99 % Most Recent : Vitals Vitals: 12/07/22 0000 12/07/22 0400 12/07/22 0827 12/07/22 1146 BP: 126/76 123/72 119/74 141/66 BP Location: Right arm Right arm Right arm Right arm Patient Position: Lying Lying Lying Lying Pulse: 90 69 75 70 Resp: 20 12 18 Temp: 37 ??C (98.6 ??F) 36.4 ??C (97.6 ??F) 36.8 ??C (98.3 ??F) 36.7 ??C (98.1 ??F) TempSrc: Axillary Axillary Oral Oral SpO2: 90% 92% 92% 98% Weight: Height: Physical Exam: General appearance: alert, cooperative, no distress HEENT: (-)icterus, Oropharnyx is normal, NCAT Neck: No palpable LN Lungs: Course breath sounds and symmetric; minimal respiratory effort, no r/w/c Heart: regular rhythm, normal S1 and S2, no m/r/g Abdomen: soft without mass, non-tender, +bowel sounds, no HSM Skin: (-)new rashes, right great toe with dry gangrene. No drainage. Minimal erythema around the toe. MSK: no gross deformities, FROM Vascular: no Edema, Neuro: No focal deficits Psych: Appropriate mood and affect Impression: 1 x 1 cm ulceration to Tip of right great toe, dry wound bed, no odor, no drainage Lab/Radiology/Diagnostic Review: 12/07 chest x-ray FINDINGS: There is a tiny right effusion. The remainder of the lungs are clear. Heart not enlarged. Aortic atherosclerosis. No failure. The tip of a left PICC line is in the distal superior vena cava. Cultures 11/08 right toe culture with MRSA and mixed Gram-positive organisms Respiratory PCR negative 11/30 urine culture with clinically insignificant MRI Foot Right WO Contrast Result Date: 11/10/2022 There is soft tissue swelling involving the right great toe with a distal wound. There is are smallsites of erosion involving the great toe distal tuft with associated marrow edema extending into the distal phalanx base. No drainable fluid collection. There has been prior application of the 4th digit through the metatarsal neck. There is subcutaneous edema about the ankle and along the dorsum ofthe foot. Mild first metatarsophalangeal joint chondrosis. There is subacute on chronic denervationof intrinsic foot musculature. There is tendinopathy of the distal Achilles tendon. Impression: 1. Distal right great toe wound with osteomyelitis of the distal phalanx and small erosions of the distal tuft. Assessment: 1. Pneumonia 2. Right great toe ulcer with osteomyelitis patient is supposed to be on vanc and Flagyl through 12/23 3. Dementia 4. Acute kidney injury 5. CHF/diabetes mellitus/schizophrenia 6. Bilateral pleural effusions Plan: Continue vanc and Flagyl to 12/23 DC cefepime upon discharge Discuss with Nephrology about the vancomycin and renal insufficiency, Nephrology thinks it is related to diuretics and not vancomycin induced and recommended to continue, tried to call the daughter johnny to discuss, voicemail was full 4. CBC, CMP, vanc level weekly faxed to [phone] 5. Okay to DC from ID perspective * Hui Bazan PTA - 12/10/2022 11:48 AM CDT Physical Therapy PT PROGRESS NOTE PATIENT'S NAME:Sixto Chakraborty :1950 AGE:72 y.o. ROOM:[facility] [address] Past Medical History: Diagnosis Date Arthritis CHF (congestive heart failure) (CMS/HCC) (HCC) Dementia (HCC) Depression Diabetic neuropathy (HCC) Hyperlipidemia Hypertension Movement disorder Osteomyelitis (HCC) Renal disorder Schizophrenia (HCC) Type 2 diabetes mellitus (HCC) Past Surgical History: Procedure Laterality Date SECTION Right right foot TOE AMPUTATION Right 01/06/2020 4th toe amp/ foot debridement/ Dr. Anat Pelayo Patient Active Problem List Diagnosis Schizoaffective disorder, bipolar type (CMS/HCC) (HCC) Diabetic neuropathy (HCC) Type 2 diabetes mellitus with diabetic neuropathy, with long-term current use of insulin (CMS/HCC) (HCC) Hypertension associated with diabetes (HCC) Amputation of toe of right foot (CMS/HCC) (HCC) Iron deficiency anemia Gastroesophageal reflux disease Hyperlipidemia associated with type 2 diabetes mellitus (HCC) Dementia (HCC) Schizoaffective disorder, bipolar type (CMS/HCC) (HCC) 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 2 diabetes mellitus (CMS/HCC) ([facility]) Encounter for Medicare annual wellness exam Late onset Alzheimer's dementia without behavioral disturbance (HCC) Volume overload Anemia Toe necrosis (CMS/HCC) (HCC) Physical deconditioning Left leg DVT (CMS/HCC) ([facility]) Pulmonary nodule Retention of urine, unspecified Unspecified osteoarthritis, unspecified site Unsteadiness on feet Weakness Parkinsonism (HCC) Wheezing Anemia in stage 4 chronic kidney disease (HCC) Osteomyelitis of great toe of right foot (CMS/HCC) ([facility]) Abnormal urinalysis Cellulitis of great toe of right foot BRENDA (acute kidney injury) ([facility]) ([facility]) Acute on chronic diastolic congestive heart failure ([facility]) ([facility]) Bibasilar consolidations Movement disorder TIME IN: 1149 TIME OUT: 1222 SUBJECTIVE Patient nods 'yes' to suggested PT activities. MENTAL STATUS/ORIENTATION: lethargic PAIN: Pre-therapy pain level: denies pain Pain location: n/a Pain intervention: n/a Post-therapy pain level/response to intervention: unchanged OBJECTIVE PRECAUTIONS: fall, contact isolation for MRSA APPEARANCE/POSTURE: female patient supine in bed, wearing bilat pressure relief booties, alarm in place. VITAL SIGNS: Resting heart rate: 66 BPM Post-activity heart rate: 66 BPM Resting O2 sat: 95% on room air Post-activity O2 sat: 95% on room air MOBILITY DOCUMENTATION: Bed Mobility/Transfers: supine to sit with max assist of 1, use of bedrail for support. Scoot sit to EOB with mod assist, vc's for technique. Scoot back in chair with CGA. Sit to/from stand with mod/max assist + vc's for hand placement and safety. Bed to chair with mod/max assist of 1 for stand pivot; note bilat knee instability. Gait: stand for 4-5 seconds with w/w with mod/max assist, limited by bilat knee instability. TREATMENT: sitting knee extension x5 reps each right and left with min/mod assist for full ROM. Sitting hip flexion x5 reps each right and left with mod assist. Ankle DF/PF x5 reps each with min/mod assist for full ROM. Sitting on EOB for 10 minutes with Fair+ balance. APPEARANCE/POSTURE (end of session): seated in recliner with LE's elevated, alarm in place and activated, call light in reach. EDUCATION:sitting balance, pre-gait, bed mobility , therapeutic exercises , and functional transfertraining RESPONSE TO EDUCATION: needs reinforcement ASSESSMENT Activity tolerance/response to P.T.: patient very lethargic this session; offers 1 word answers or head nods when pressed; increased assist required for bed mobility and transfers compared with mobility on initial eval. Barriers to learning: Physical and Cognitive Barriers to discharge: Limited insight into deficits, Decreased endurance, Lower extremity weakness, and Long standing deficits Patient continues progressing toward previously set goals which remain appropriate at this time. PLAN PT Discharge Recommendations this date: PT Recommendation/Plan: Home Health PT, Home with 24 hour supervision PT Frequency during current admission: 3-5x/wk Refer to multi-disciplinary care plan section for PT specific goals. If this is the last note, please consider this the discharge summary. Cosigned by Mindy William PT at 12/10/2022 1:09 PM CDT * Elsa Anthony COTA - 12/10/2022 11:15 AM CDT Occupational Therapy NOTE / SESSION TYPE: DAILY PROGRESS / TREATMENT Patient's Name: Sixto Chakraborty Age / Sex: 72 y.o. / female Room: [id number] : 1950 Date of service: 12/10/22 TIME IN: 1115 TIME OUT: 1144 Patient Active Problem List Diagnosis Schizoaffective disorder, bipolar type (CMS/HCC) (HCC) Diabetic neuropathy (HCC) Type 2 diabetes mellitus with diabetic neuropathy, with long-term current use of insulin ([facility]) (HCC) Hypertension associated with diabetes (HCC) Amputation of toe of right foot ([facility]) ([facility]) Iron deficiency anemia Gastroesophageal reflux disease Hyperlipidemia associated with type 2 diabetes mellitus (HCC) Dementia (HCC) Schizoaffective disorder, bipolar type ([facility]) (HCC) 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 2 diabetes mellitus ([facility]) ([facility]) Encounter for Medicare annual wellness exam Late onset Alzheimer's dementia without behavioral disturbance ([facility]) Volume overload Anemia Toe necrosis ([facility]) ([facility]) Physical deconditioning Left leg DVT ([facility]) ([facility]) Pulmonary nodule Retention of urine, unspecified Unspecified osteoarthritis, unspecified site Unsteadiness on feet Weakness Parkinsonism (HCC) Wheezing Anemia in stage 4 chronic kidney disease ([facility]) Osteomyelitis of great toe of right foot ([facility]) ([facility]) Abnormal urinalysis Cellulitis of great toe of right foot BRENDA (acute kidney injury) ([facility]) ([facility]) Acute on chronic diastolic congestive heart failure ([facility]) ([facility]) Bibasilar consolidations Movement disorder Past Medical History: Diagnosis Date Arthritis CHF (congestive heart failure) ([facility]) ([facility]) Dementia (HCC) Depression Diabetic neuropathy (HCC) Hyperlipidemia Hypertension Movement disorder Osteomyelitis (HCC) Renal disorder Schizophrenia (HCC) Type 2 diabetes mellitus (HCC) Past Surgical History: Procedure Laterality Date SECTION Right right foot TOE AMPUTATION Right 01/06/2020 4th toe amp/ foot debridement/ Dr. Anat Pelayo Precautions (including weight-bearing): Fall risk, Bed / chair alarm, and Contact isolation: MRSA Subjective: I am very tired Therapy Pain: Pre-therapy pain level: 0 /10 Pain location: No pain - Location N/A Pain Intervention(s): No pain - Intervention N/A Post-therapy pain level: 0 /10 Pain scale reference: 0-10 SCALE Objective: Appearance: Presentation upon OT arrival: Patient Supine with head of bed elevated Presentation upon OT departure: Patient Supine with head of bed elevated Bed / Chair alarm in place and activated upon OT departure: Yes Call light within arms reach of patient at end of session: Yes Completed patient handoff and notified [employer] / RN, name: Clary, of patient's location and functional status upon completion of session Cognitive / Perceptual: Alert during session, fatigued, 100% command follow with increased time and min verbal cueing Mobility / Transfers: Bed Mobility: Supine <> Sit with min assist for BLE and trunk Transfer(s): Sit <> Stand with w/w and min assist x1 EOB <> Bathroom with w/w and CGA for safety TOILET TRANSFER LOCATION: STANDARD TOILET OVERALL ASSIST LEVEL: PARTIAL / MODERATE ASSISTANCE: LESS THAN HALF (1% - 49%) DEVICE: WHEELED WALKER ADDITIONAL DOCUMENTATION: Min assist for sit <> stands Living Skills / Other Activities: TOILETING LOCATION: SITTING ON STANDARD TOILET and STANDING AT STANDARD TOILET TASKS COMPLETED: HYGIENE MANAGEMENT OVERALL ASSIST LEVEL: SUBSTANTIAL / MAXIMAL ASSISTANCE: MORE THAN HALF (50% - 99%) ADDITIONAL DOCUMENTATION: Required max assist for hygiene management UE DRESSING LOCATION OF UE DRESSING: Sitting on EOB TASKS COMPLETED: Hospital gown as robe and Hospital gown OVERALL ASSIST LEVEL: PARTIAL / MODERATE ASSISTANCE: LESS THAN HALF (1% - 49%) ADDITIONAL DOCUMENTATION: Required mod assist to thread BUE and follow commands Pt incontinent of bowel and bladder upon therapist arrival, required total assist for hygiene management Caregiver Present: No Education & Training Provided: Role of OT, OT plan of care, ADL training, Bed mobility training, Functional transfer training, and Balance training Assessment: Activity tolerance / response to OT session: FAIR TOLERANCE and FATIGUED Progress towards goals: Please refer to care plan from this date for progress towards individual goals Plan: Therapy Plan: Rehab Potential (Prognosis): good OT Recommendations This Date: OT RECOMMENDATIONS: OT Recommendation: Home with 24 hour supervision, Home Health OT (due to patient and family declining SNF placement) Flow sheet updated and OT Consultation in Regards to Change in Discharge Recommendations: YES /NO: No Additional recommendation comments: Frequency of therapy:OT Frequency during current admission: 3-5x/wk If this is the last note, consider this the discharge summary MICHEAL Hamilton 12/10/22 Cosigned by Sara Thornton OT at 12/11/2022 12:28 PM CDT * William Velasquez MD - 12/10/2022 10:23 AM CDT Daily Progress [facility] Cardiology OBJECTIVE: Past Medical History: Diagnosis Date Arthritis CHF (congestive heart failure) (CMS/HCC) (HCC) Dementia (HCC) Depression Diabetic neuropathy (HCC) Hyperlipidemia Hypertension Movement disorder Osteomyelitis (HCC) Renal disorder Schizophrenia (HCC) Type 2 diabetes mellitus (HCC) Family History Problem Relation Age of Onset Stomach cancer Father Scheduled Medications Medication Dose Route Frequency amLODIPine (NORVASC) tablet 10 mg 10 mg oral Nightly atorvastatin (LIPITOR) tablet 20 mg 20 mg oral Nightly benztropine (COGENTIN) tablet 1.5 mg 1.5 mg oral Nightly carvediloL (COREG) tablet 12.5 mg 12.5 mg oral BID with meals (bkfst, dinner) cefepime (MAXIPIME) 2,000 mg in sodium chloride 0.9% 100 mL IVPB 2,000 mg intravenous Q24H SOL famotidine (PEPCID) tablet 10 mg 10 mg oral Daily ferric gluconate (FERRLECIT) 125 mg of elemental iron in sodium chloride 0.9% 100 mL IVPB 125 mg ofelemental iron intravenous Once per day on Thu ferrous sulfate delayed release tablet 65 mg of elemental iron 65 mg of elemental iron oral Daily with breakfast furosemide (LASIX) tablet 40 mg 40 mg oral BID DIURETIC heparin 5,000 unit/mL injection 5,000 Units 5,000 Units subcutaneous Q8H SOL insulin glargine (LANTUS, SEMGLEE) 100 unit/mL injection 15 Units 15 Units subcutaneous Nightly insulin lispro (HumaLOG, ADMELOG) 100 unit/mL injection 0-4 Units 0-4 Units subcutaneous Nightly insulin lispro (HumaLOG, ADMELOG) 100 unit/mL injection 0-5 Units 0-5 Units subcutaneous TID with meals insulin lispro (HumaLOG, ADMELOG) 100 unit/mL injection 7 Units 7 Units subcutaneous TID with meals metroNIDAZOLE (FLAGYL) tablet 500 mg 500 mg oral TID pregabalin (LYRICA) capsule 75 mg 75 mg oral Nightly risperiDONE (RisperDAL) tablet 2 mg 2 mg oral Nightly Recent Labs Lab Units 12/10/22 0542 12/09/22 0528 12/08/22 0801 12/06/22 1451 12/05/22 0735 WBC K/cumm 10.6* 8.3 8.0 8.6 7.5 HEMOGLOBIN g/dL 7.1* 7.5* 7.2* 7.7* 7.6* HEMATOCRIT % 23.0* 24.3* 23.2* 25.2* 24.2* PLATELETS K/cumm 299 293 294 288 280 Recent Labs Lab Units 12/10/22 0726 12/10/22 0542 12/10/22 0307 12/09/22 2115 12/09/22 1713 12/09/22 0808 12/09/22 0528 12/08/22 1222 12/08/22 0801 12/06/22 1452 12/06/22 1451 12/05/22 1159 12/05/22 0735 12/04/22 0724 12/04/22 0623 12/03/22 1615 12/03/22 1252 SODIUM mmol/L -- 144 -- -- -- -- 143 -- 141 -- 137 -- 142 -- 140 -- 138 POTASSIUM PLASMA mmol/L -- 4.6 -- -- -- -- 4.6 -- 4.6 -- 5.1* -- 4.5 -- 4.7 -- 4.6 CHLORIDE mmol/L -- 112* -- -- -- -- 111* -- 109 -- 106 -- 111* -- 109 -- 105 CO2 mmol/L -- 19* -- -- -- -- 20* -- 20* -- 20* -- 23 -- 22 -- 21* ANIONGAP mmol/L -- 13 -- -- -- -- 12 -- 12 -- 11 -- 8 -- 9 -- 12 GLUCOSE mg/dL -- 158 -- -- -- -- 92 -- 119 -- 206* -- 140 -- 189 -- 155 POC GLUCOSE MONITOR mg/dL 142 -- 175 151 184 < > -- < > -- < > -- < > -- < > -- < > -- BUN SERUM mg/dL -- 69* -- -- -- -- 68* -- 67* -- 51* -- 51* -- 55* -- 52* CREATININE mg/dL -- 2.69* -- -- -- -- 2.68* -- 2.58* -- 2.37* -- 2.30* -- 2.50* -- 2.80* CALCIUM mg/dL -- 8.9 -- -- -- -- 8.9 -- 9.2 -- 9.2 -- 8.9 -- 8.7 -- 9.0 ALBUMIN g/dL -- 3.1* -- -- -- -- 2.9* -- 2.9* -- 3.2* -- -- -- 2.9* -- 3.1* ALK PHOS Units/L -- -- -- -- -- -- -- -- -- -- 100 -- -- -- 107 -- 135* ALT Units/L -- -- -- -- -- -- -- -- -- -- 10 -- -- -- 7 -- 9 AST Units/L -- -- -- -- -- -- -- -- -- -- 14 -- -- -- 10 -- 13 BILIRUBIN TOTAL mg/dL -- -- -- -- -- -- -- -- -- -- <0.2 -- -- -- <0.2 -- <0.2 < > = values in this interval not displayed. Intake/Output Summary (Last 24 hours) at 12/10/2022 1024 Last data filed at 12/10/2022 1003 Gross per 24 hour Intake 0 ml Output 275 ml Net -275 ml Vitals: 12/10/22 0400 12/10/22 0405 12/10/22 0800 12/10/22 0839 BP: 120/65 131/56 BP Location: Right arm Right arm Patient Position: Lying Lying Pulse: 64 66 66 69 Resp: 22 20 Temp: 37.1 ??C (98.8 ??F) 37.2 ??C (98.9 ??F) TempSrc: Axillary Oral SpO2: 93% 93% Weight: Height: ASSESSMENT/PLAN: Patient Active Problem List Diagnosis Schizoaffective disorder, bipolar type (CMS/HCC) ([facility]) Diabetic neuropathy (HCC) Type 2 diabetes mellitus with diabetic neuropathy, with long-term current use of insulin (CMS/HCC) (HCC) Hypertension associated with diabetes (HCC) Amputation of toe of right foot (CMS/HCC) (HCC) Iron deficiency anemia Gastroesophageal reflux disease Hyperlipidemia associated with type 2 diabetes mellitus (HCC) Dementia (HCC) Schizoaffective disorder, bipolar type (CMS/HCC) (HCC) 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 2 diabetes mellitus (CMS/HCC) ([facility]) Encounter for Medicare annual wellness exam Late onset Alzheimer's dementia without behavioral disturbance ([facility]) Volume overload Anemia Toe necrosis ([facility] [facility]/HCC) ([facility]) Physical deconditioning Left leg DVT ([facility]) ([facility]) Pulmonary nodule Retention of urine, unspecified Unspecified osteoarthritis, unspecified site Unsteadiness on feet Weakness Parkinsonism (HCC) Wheezing Anemia in stage 4 chronic kidney disease ([facility]) Osteomyelitis of great toe of right foot (CMS/HCC) ([facility]) Abnormal urinalysis Cellulitis of great toe of right foot BRENDA (acute kidney injury) ([facility]/HCC) ([facility]) Acute on chronic diastolic congestive heart failure ([facility]) ([facility]) Bibasilar consolidations Movement disorder S no new cardiac complaints very sleepy this morning Exam: Gen: Comfortable, NAD CVS: RRR, S1, S2 present, GI: Soft Non tender Chest: CTAB Psych: Appropriate mood and affect Neuro: Alert, oriented, No deficits. Assessment plan: Volume overload contributing to edema due to CKD - with acute on chronic kidney disease - managed by Nephrology CKD stage III with Brenda I nephrology is managing Acute on chronic diastolic heart failure - normal LV function nonischemic MPI recently - elevated troponin due to renal dysfunction does not represent ACS Essential hypertension well controlled Diabetes mellitus type 2 Right great toe ulcer with osteomyelitis - on antibiotic therapy as per Infectious Disease - normal TEO and TBI Iron deficiency anemia getting IV iron infusion. William Velasquez MD, FACC, [facility], RPVI [facility] [phone] 12/10/2022 10:24 AM * Howard Gibson, [facility] - 12/10/2022 7:05 AM CDT Pharmacokinetic Consult - Vancomycin Dosing Sixto Chakraborty is a 72 y.o. female who has been consulted for vancomycin dosing for bone/joint infection. Relevant clinical data and objective history reviewed: Creatinine Date Value Ref Range Status 12/10/2022 2.69 (H) 0.60 - 1.10 mg/dL Final 12/09/2022 2.68 (H) 0.60 - 1.10 mg/dL Final 12/08/2022 2.58 (H) 0.60 - 1.10 mg/dL Final BUN Date Value Ref Range Status 12/10/2022 69 (H) 6 - 25 mg/dL Final 12/09/2022 68 (H) 8 - 25 mg/dL Final 12/08/2022 67 (H) 8 - 25 mg/dL Final Estimated Creatinine Clearance: 15 mL/min (A) (by C-G 65 yr and older- minimum SCr 0.8 based on SCrof 2.69 mg/dL (H)). I/O last 3 completed shifts: In: 231 [P.O.:231] Out: 275 [Urine:275] Lab Results Component Value Date/Time WBC 10.6 (H) 12/10/2022 05:42 AM HGB 7.1 (L) 12/10/2022 05:42 AM HCT 23.0 (L) 12/10/2022 05:42 AM MCV 96.2 12/10/2022 05:42 AM LABPLAT 299 12/10/2022 05:42 AM Temp Readings from Last 3 Encounters: 12/10/22 37.1 ??C (98.8 ??F) (Axillary) 12/05/22 37 ??C (98.6 ??F) (Oral) 11/13/22 36.7 ??C (98.1 ??F) (Oral) Patient Weight 12/06/22 78.9 kg (173 lb 15.1 oz) Baseline culture/source/susceptibility: Lab Results Component Value Date DIRECTEXAM 11/08/2022 Stain: No polymorphonuclear leukocytes seen. Rare Gram Positive Bacilli DIRECTEXAM 10/03/2022 Stain: No polymorphonuclear leukocytes seen. No organisms seen. DIRECTEXAM 10/02/2022 Molecular Analysis: Streptococcus species detected by the Verigene Blood Culture Nucleic Acid Test. This test does not exclude the possibility of a mixed bacterial infection. Notification of: Streptococcus species called to and read back by: Zoran Baca RN [phone] on 10/03/2022 14:12:18 by: Marta Cailin SC DIRECTEXAM 10/02/2022 Stain: Gram Positive Cocci in pairs and chains Time to culture positivity (anaerobic media): 11.1 hours Time to culture positivity (aerobic media): 11 hours Notification of: Gram Positive Cocci in pairs and chains called to and read back by: Nelia Crouch [phone] on 10/03/2022 08:51:39 by: Maddie Barrera MLS MICROBIOLOGY 11/30/2022 Final Report: Less than 100,000 colonies/mL (clinically insignificant growth based on current clinical standards) MICROBIOLOGY (.) 11/08/2022 Final Report: Abundant Mixed Gram-positive microorganisms Includes the following: Few Staphylococcus aureus Methicillin resistant (MRSA) by penicillin binding protein 2a (PBP2a) testing. MICROBIOLOGY Final Report: No growth 11/06/2022 MICROBIOLOGY Final Report: No growth 11/06/2022 ORGANISM (CLINICALLY INSIGNIFICANT GROWTH 11/30/2022 ORGANISM STAPHYLOCOCCUS AUREUS 11/08/2022 ORGANISM MIXED GRAM POSITIVE MICROORGANISMS 11/08/2022 Assessment/Plan The patient has been receiving vancomycin random dosing. A Vancomycin random level returned as 24.2 on 12/10/22 at 0542. Medication will remain on hold. The next vancomycin random level is ordered to be drawn on 12/11/22 at 0600. Pharmacy will continue to follow the patient???s culture results and clinical progress daily. Day 3 of therapy Howard Gibson RPh * Salvador Lr RPh - 12/09/2022 7:04 PM CDT Pharmacokinetic Consult - Vancomycin Dosing Sixto Chakraborty is a 72 y.o. female who has been consulted for vancomycin dosing for bone/joint infection. Relevant clinical data and objective history reviewed: Creatinine Date Value Ref Range Status 12/09/2022 2.68 (H) 0.60 - 1.10 mg/dL Final 12/08/2022 2.58 (H) 0.60 - 1.10 mg/dL Final 12/06/2022 2.37 (H) 0.60 - 1.10 mg/dL Final BUN Date Value Ref Range Status 12/09/2022 68 (H) 8 - 25 mg/dL Final 12/08/2022 67 (H) 8 - 25 mg/dL Final 12/06/2022 51 (H) 8 - 25 mg/dL Final Estimated Creatinine Clearance: 15 mL/min (A) (by C-G 65 yr and older- minimum SCr 0.8 based on SCrof 2.68 mg/dL (H)). I/O last 3 completed shifts: In: 480 [P.O.:480] Out: 850 [Urine:850] Lab Results Component Value Date/Time WBC 8.3 12/09/2022 05:28 AM HGB 7.5 (L) 12/09/2022 05:28 AM HCT 24.3 (L) 12/09/2022 05:28 AM MCV 95.7 12/09/2022 05:28 AM LABPLAT 293 12/09/2022 05:28 AM Temp Readings from Last 3 Encounters: 12/09/22 36.3 ??C (97.3 ??F) (Axillary) 12/05/22 37 ??C (98.6 ??F) (Oral) 11/13/22 36.7 ??C (98.1 ??F) (Oral) Patient Weight 12/06/22 78.9 kg (173 lb 15.1 oz) Baseline culture/source/susceptibility: Lab Results Component Value Date DIRECTEXAM 11/08/2022 Stain: No polymorphonuclear leukocytes seen. Rare Gram Positive Bacilli DIRECTEXAM 10/03/2022 Stain: No polymorphonuclear leukocytes seen. No organisms seen. DIRECTEXAM 10/02/2022 Molecular Analysis: Streptococcus species detected by the Verigene Blood Culture Nucleic Acid Test. This test does not exclude the possibility of a mixed bacterial infection. Notification of: Streptococcus species called to and read back by: Zoran Baca RN [phone] on 10/03/2022 14:12:18 by: Marta Simeon SC DIRECTEXAM 10/02/2022 Stain: Gram Positive Cocci in pairs and chains Time to culture positivity (anaerobic media): 11.1 hours Time to culture positivity (aerobic media): 11 hours Notification of: Gram Positive Cocci in pairs and chains called to and read back by: Nelia Crouch [phone] on 10/03/2022 08:51:39 by: Maddie Barrera MLS MICROBIOLOGY 11/30/2022 Final Report: Less than 100,000 colonies/mL (clinically insignificant growth based on current clinical standards) MICROBIOLOGY (.) 11/08/2022 Final Report: Abundant Mixed Gram-positive microorganisms Includes the following: Few Staphylococcus aureus Methicillin resistant (MRSA) by penicillin binding protein 2a (PBP2a) testing. MICROBIOLOGY Final Report: No growth 11/06/2022 MICROBIOLOGY Final Report: No growth 11/06/2022 ORGANISM (CLINICALLY INSIGNIFICANT GROWTH 11/30/2022 ORGANISM STAPHYLOCOCCUS AUREUS 11/08/2022 ORGANISM MIXED GRAM POSITIVE MICROORGANISMS 11/08/2022 Assessment/Plan The patient has received vancomycin 2000 mg once. Vancomycin random level returned as 26.4mcg/mL on12/09/22 at 1652. Medication placed on hold. Recommend a dose change to 750 mg IV every 24 hours if next random level is <20mcg/mL. Next vancomycin random level ordered to be drawn 12/10/22 at 0700. Pharmacy will continue to follow the patient???s culture results and clinical progress daily. Day 2 of therapy Salvador Lr, PharmD * Jimbo Strauss MD - 12/09/2022 4:00 PM CDT Nephrology Daily Progress [facility]# [id number] #: [id number] Phone#: [phone] #: 1950 Subjective Chief complaint of Interval History: feels well, still some what confused, poor po intake Objective Vitals: 24hr Min/Max: Temp Min: 36.3 ??C (97.3 ??F) Max: 37.1 ??C (98.8 ??F) Pulse Min: 61 Max: 114 BP Min: 120/65 Max: 145/53 Resp Min: 18 Max: 24 SpO2 Min: 92 % Max: 96 % Intake/Output Summary (Last 24 hours) at 12/10/2022 0819 Last data filed at 12/09/2022 1219 Gross per 24 hour Intake 231 ml Output 275 ml Net -44 ml Wt Readings from Last 3 Encounters: 12/06/22 78.9 kg (173 lb 15.1 oz) 12/05/22 79.3 kg (174 lb 12.8 oz) 11/10/22 69.5 kg (153 lb 4.8 oz) Temp Av.7 ??C (98.1 ??F) Min: 36.3 ??C (97.3 ??F) Max: 37.1 ??C (98.8 ??F) BP Min: 120/65 Max: 145/53 Pulse Av.2 Min: 61 Max: 114 Resp Av Min: 18 Max: 24 SpO2 Av % Min: 92 % Max: 96 % Most Recent: Vitals: 12/10/22 0405 BP: Pulse: 66 Resp: Temp: SpO2: I/O last 2 completed shifts: In: 231 [P.O.:231] Out: 275 [Urine:275] No intake/output data recorded. Current Facility-Administered Medications Medication Dose Route Frequency Last Rate Last Admin albuterol HFA (PROVENTIL HFA,VENTOLIN HFA,PROAIR HFA) 90 mcg/actuation inhaler 2 puff 2 puff inhalation Q4H PRN (RT) amLODIPine (NORVASC) tablet 10 mg 10 mg oral Nightly 10 mg at 12/09/222114 atorvastatin (LIPITOR) tablet 20 mg 20 mg oral Nightly 20 mg at 12/09/222114 benztropine (COGENTIN) tablet 1.5 mg 1.5 mg oral Nightly 1.5 mg at 12/09/222114 carvediloL (COREG) tablet 12.5 mg 12.5 mg oral BID with meals (bkfst, dinner) 12.5 mg at 12/09/22 171 cefepime (MAXIPIME) 2,000 mg in sodium chloride 0.9% 100 mL IVPB 2,000 mg intravenous Q24H SOL 200 mL/hr at 12/09/22 0913 2,000 mg at 12/09/22 0913 dextrose oral liquid liquid 15 g 15 g oral Q15 Min PRN Or dextrose (D10W) 10% bolus 250 mL 250 mL intravenous Q15 Min PRN famotidine (PEPCID) tablet 10 mg 10 mg oral Daily 10 mg at 12/09/22 0914 ferric gluconate (FERRLECIT) 125 mg of elemental iron in sodium chloride 0.9% 100 mL IVPB 125 mg ofelemental iron intravenous Once per day on Thu 110 mL/hr at 12/08/221901 125 mg of elemental iron at 12/08/221901 ferrous sulfate delayed release tablet 65 mg of elemental iron 65 mg of elemental iron oral Daily with breakfast 65 mg of elemental iron at 12/09/22912 furosemide (LASIX) tablet 40 mg 40 mg oral BID DIURETIC glucagon injection 1 mg 1 mg intramuscular Q30 Min PRN heparin 5,000 unit/mL injection 5,000 Units 5,000 Units subcutaneous Q8H SOL 5,000 Units at 12/10/22601 insulin glargine (LANTUS, SEMGLEE) 100 unit/mL injection 15 Units 15 Units subcutaneous Nightly 15 Units at 12/09/222114 insulin lispro (HumaLOG, ADMELOG) 100 unit/mL injection 0-4 Units 0-4 Units subcutaneous Nightly insulin lispro (HumaLOG, ADMELOG) 100 unit/mL injection 0-5 Units 0-5 Units subcutaneous TID with meals 1 Units at 12/09/221712 insulin lispro (HumaLOG, ADMELOG) 100 unit/mL injection 7 Units 7 Units subcutaneous TID with meals7 Units at 12/09/221713 metroNIDAZOLE (FLAGYL) tablet 500 mg 500 mg oral TID 500 mg at 12/10/22601 polyethylene glycol (MIRALAX) packet 17 g 17 g oral Daily PRN pregabalin (LYRICA) capsule 75 mg 75 mg oral Nightly 75 mg at 12/09/222114 risperiDONE (RisperDAL) tablet 2 mg 2 mg oral Nightly 2 mg at 12/09/222114 Continuous Medications Medication Dose Last Rate LDA: PICC Single Lumen 11/11/22 Non-tunneled Power Left Brachial;Upper arm (Active) Placement Date/Time: 11/11/22 1310 Placed by External Staff?: Other hospital Catheter Time Out Checklist Completed: Yes Hand Hygiene Performed: Yes Site Prep: Chlorhexidine Site Prep Agent has Completely Dried Before Insertion: Yes All 5 Steril... Number of days: 28 External Urinary Catheter (Active) Placement Date/Time: 12/06/22 1700 Inserted by: SWATI LAY External Catheter Type: Female External Urinary Catheter Sizes: Female- One size Number of days: 3 Vent settings: Hemodynamic parameters for last 24 hours: Physical Exam: General Appearance: Alert, cooperative, no distress, appears stated age, well developed, well nourished Head: Normocephalic, without obvious abnormality, atraumatic Eyes: PERRL, conjunctiva/corneas clear, EOM's intact, both eyes, anicteric Neck: Supple, symmetrical, trachea midline, no adenopathy; thyroid: No enlargement/tenderness/nodules; no carotid bruits, No JVD Lungs: Clear to auscultation bilaterally, respirations unlabored Cardiovascular: Regular rate and rhythm, S1 and S2 normal, no murmur, rub or gallop Abdomen: Soft, non-tender, bowel sounds active all four quadrants, non-distended Extremities: Extremities normal, +1 LE edema Skin: Skin color, texture, turgor normal, no rashes, lesions or bruising Neurologic: Alert & oriented person, + tremor Psychosocial: flat Dialysis Access Exam: Lab/Radiology/Diagnostic Review: Recent Labs Lab Units 12/10/22 0726 12/10/22 0542 12/09/22 0808 12/09/22 0528 12/08/22 1222 12/08/22 0801 SODIUM mmol/L -- 144 -- 143 -- 141 POTASSIUM PLASMA mmol/L -- 4.6 -- 4.6 -- 4.6 CHLORIDE mmol/L -- 112* -- 111* -- 109 CO2 mmol/L -- 19* -- 20* -- 20* BUN SERUM mg/dL -- 69* -- 68* -- 67* CREATININE mg/dL -- 2.69* -- 2.68* -- 2.58* IIN-PEI-OAQFICL mL/min/1.73 m2 -- 18 -- 18 -- 19 GLUCOSE mg/dL -- 158 -- 92 -- 119 POC GLUCOSE MONITOR mg/dL 142 -- < > -- < > -- CALCIUM mg/dL -- 8.9 -- 8.9 -- 9.2 ALBUMIN g/dL -- 3.1* -- 2.9* -- 2.9* PHOSPHORUS PLASMA mg/dL -- 5.2* -- 5.5* -- 5.5* < > = values in this interval not displayed. Additional Labs: Recent Labs Lab Units 12/10/22 0542 12/09/22 0528 12/08/22 0801 WBC K/cumm 10.6* 8.3 8.0 HEMOGLOBIN g/dL 7.1* 7.5* 7.2* HEMATOCRIT % 23.0* 24.3* 23.2* PLATELETS K/cumm 299 293 294 NEUTROS PCT % 68.6 62.0 56.6 LYMPHS PCT % 18.8 24.4 29.1 MONOS PCT % 9.2 10.3 10.4 EOS PCT % 2.4 2.5 3.0 Assessment/Plan CKD: stage 3b, due to dm, htn. Expect some rise due to diuresis. HTN: adequately controlled Edema: mostly LE some combination of CKD, pulmonary HTN, on going diuresis. Will add metolazone to regimen Anemia: combination of CKD, possible iron deficiency Dyspnea: due to volume overload. Hyperkalemia: mild. 7. Tremors: possible related to parkinson. May benefit form neurology consult. 8. Anemia: check iron status DICTATION DISCLAIMER: This note is transcribed using the Epoxy direct voice recognition system without human x ray tech. In an effort to expedite patient care, this note has not been adjusted for typographical, grammatical, and syntax by a trained medical instrument technician. Portions of this note have been copied from the medical record, but edited appropriately to accurately reflect the patient's current clinical state. Jimbo Strauss Office/exchange: [phone] Pager: [phone] * Krishna Morgan MD - 12/09/2022 2:14 PM CDT Images from the original note were not included. Infectious Disease Sixto Chakraborty Admit Date: 12/06/2022 LOS: 3 Days Consulting physician:Bev Adames MD Reason for consult: osteomyelitis Interval Course No new events overnight New Symptoms Patient has no new symptoms ATBX Vanc/cefepime/Flagyl Data Vitals: 12/09/22 0000 12/09/22 0400 12/09/22 0827 12/09/22 1219 BP: 121/52 123/66 124/54 123/54 BP Location: Right arm Right arm Right arm Right arm Patient Position: Lying Lying Lying Sitting;Reclining Pulse: 65 64 62 61 Resp: Temp: 37.3 ??C (99.1 ??F) 37.1 ??C (98.8 ??F) 36.9 ??C (98.4 ??F) 36.6 ??C (97.9 ??F) TempSrc: Axillary Axillary Oral Oral SpO2: 94% 96% 92% 96% Weight: Height: Temp (24hrs), Av.9 ??C (98.5 ??F), Min:36.6 ??C (97.9 ??F), Max:37.3 ??C (99.1 ??F) Recent Labs Lab Units 12/09/2252712/08/22 0812/06/22 1451 WBC K/cumm 8.3 8.0 8.6 HEMOGLOBIN g/dL 7.5* 7.2* 7.7* HEMATOCRIT % 24.3* 23.2* 25.2* PLATELETS K/cumm 293 294 288 Recent Labs Lab Units 12/09/2252712/08/22 0812/06/22 1451 BUN SERUM mg/dL 68* 67* 51* CREATININE mg/dL 2.68* 2.58* 2.37* Scheduled Meds:amLODIPine, 10 mg, oral, Nightly atorvastatin, 20 mg, oral, Nightly benztropine, 1.5 mg, oral, Nightly carvediloL, 12.5 mg, oral, BID with meals (bkfst, dinner) cefepime, 2,000 mg, intravenous, Q24H SOL famotidine, 10 mg, oral, Daily ferric gluconate, 125 mg of elemental iron, intravenous, Once per day on Thu ferrous sulfate, 65 mg of elemental iron, oral, Daily with breakfast furosemide, 40 mg, intravenous, Q12H SOL heparin, 5,000 Units, subcutaneous, Q8H SOL insulin glargine, 15 Units, subcutaneous, Nightly insulin lispro, 0-4 Units, subcutaneous, Nightly insulin lispro, 0-5 Units, subcutaneous, TID with meals insulin lispro, 7 Units, subcutaneous, TID with meals metroNIDAZOLE, 500 mg, oral, TID pregabalin, 75 mg, oral, Nightly risperiDONE, 2 mg, oral, Nightly Continuous Infusions: PRN Meds:. albuterol HFA dextrose OR dextrose glucagon polyethylene glycol Review of Systems: Gen: denies fevers, denies chills, denies sweats, denies unintentional weight loss HEENT: Denies sore throat, denies thrush Neck: Denies palpable lymph nodes, denies neck stiffness Cv: denies chest pain, denies palpitations Resp: Denies SOB, Denies orthopnea Gi: Denies abdominal pain, Denies diarrhea, denies n/v Extrem: Denies gross deformities, denies joint pain, denies myalgias Skin: Denies rashes, denies lesions Neuro: Denies weakness, denies paresthesias, denies memory loss Psych: denies depression, denies anxiety Objective: Vitals: 24hr Min/Max: Temp Min: 36.2 ??C (97.2 ??F) Max: 37 ??C (98.6 ??F) Pulse Min: 66 Max: 90 BP Min: 119/74 Max: 142/53 Resp Min: 12 Max: 22 SpO2 Min: 90 % Max: 99 % Most Recent : Vitals Vitals: 12/07/22 0000 12/07/22 0400 12/07/22 0827 12/07/22 1146 BP: 126/76 123/72 119/74 141/66 BP Location: Right arm Right arm Right arm Right arm Patient Position: Lying Lying Lying Lying Pulse: 90 69 75 70 Resp: Temp: 37 ??C (98.6 ??F) 36.4 ??C (97.6 ??F) 36.8 ??C (98.3 ??F) 36.7 ??C (98.1 ??F) TempSrc: Axillary Axillary Oral Oral SpO2: 90% 92% 92% 98% Weight: Height: Physical Exam: General appearance: alert, cooperative, no distress HEENT: (-)icterus, Oropharnyx is normal, NCAT Neck: No palpable LN Lungs: Course breath sounds and symmetric; minimal respiratory effort, no r/w/c Heart: regular rhythm, normal S1 and S2, no m/r/g Abdomen: soft without mass, non-tender, +bowel sounds, no HSM Skin: (-)new rashes, right great toe with dry gangrene. No drainage. Minimal erythema around the toe. MSK: no gross deformities, FROM Vascular: no Edema, Neuro: No focal deficits Psych: Appropriate mood and affect Impression: 1 x 1 cm ulceration to Tip of right great toe, dry wound bed, no odor, no drainage Lab/Radiology/Diagnostic Review: 12/07 chest x-ray FINDINGS: There is a tiny right effusion. The remainder of the lungs are clear. Heart not enlarged. Aortic atherosclerosis. No failure. The tip of a left PICC line is in the distal superior vena cava. Cultures 11/08 right toe culture with MRSA and mixed Gram-positive organisms Respiratory PCR negative 11/30 urine culture with clinically insignificant MRI Foot Right WO Contrast Result Date: 11/10/2022 There is soft tissue swelling involving the right great toe with a distal wound. There is are smallsites of erosion involving the great toe distal tuft with associated marrow edema extending into the distal phalanx base. No drainable fluid collection. There has been prior application of the 4th digit through the metatarsal neck. There is subcutaneous edema about the ankle and along the dorsum ofthe foot. Mild first metatarsophalangeal joint chondrosis. There is subacute on chronic denervationof intrinsic foot musculature. There is tendinopathy of the distal Achilles tendon. Impression: 1. Distal right great toe wound with osteomyelitis of the distal phalanx and small erosions of the distal tuft. Assessment: 1. Pneumonia 2. Right great toe ulcer with osteomyelitis patient is supposed to be on vanc and Flagyl through 12/23 3. Dementia 4. Acute kidney injury 5. CHF/diabetes mellitus/schizophrenia 6. Bilateral pleural effusions Plan: Continue vanc and Flagyl to 12/23 DC cefepime upon discharge 3. CBC, CMP, vanc level weekly faxed to [phone] 4. Okay to DC from ID perspective * Rivka Garcia, OT - 12/09/2022 12:03 PM CDT Occupational Therapy NOTE / SESSION TYPE: Initial Evaluation Patient Name: Sixto Chakraborty Date of : 1950 Age / Sex: 72 y.o. / female Room: [facility]/[id number] Admit Date: 12/06/2022 Date of Service: 12/09/22 Time In: 1203 Time Out: 1241 Primary Diagnosis: Acute on chronic diastolic congestive heart failure (CMS/HCC) (HCC) HPI: Sixto Chakraborty is a 72 y.o. female who presents with c/o SOB x 2 weeks. Per chart, patient was [facility] 1 day prior to this presentation. Patient was treated for right 1st toe osteomyelitis. She was discharged on 12/05/2022. Chest xray-- bilateral effusions and bibasilar consolidation Notable History: CHF, CKD, osteomyelitis, DM, schizophrenia d/o, dementia, HLD, HTN. Past Medical History: Diagnosis Date Arthritis CHF (congestive heart failure) (CMS/HCC) (HCC) Dementia ([facility]) Depression Diabetic neuropathy ([facility]) Hyperlipidemia Hypertension Movement disorder Osteomyelitis (HCC) Renal disorder Schizophrenia ([facility]) Type 2 diabetes mellitus ([facility]) Past Surgical History: Procedure Laterality Date SECTION Right right foot TOE AMPUTATION Right 01/06/2020 4th toe amp/ foot debridement/ Dr. Anat Pelayo Precautions (Including Weight-Bearing): Fall risk and Bed / chair alarm Caregiver Present for Session (Yes or No): No SUBJECTIVE: Patient Comment: Patient agreeable Pain Assessment: Pre-therapy pain level: 0 / 10 Pain location: No pain - Location N/A Pain intervention(s): No pain - Intervention N/A Post-therapy pain level: 0 / 10 Pain scale used: 0-10 SCALE Prior Living Environment and Level of Function: Lives with: daughter Receives assistance from / other social supports available: daughter Living environment (Type of residence / Entrance accessibility): apartment with level entry Bathroom location and setup: Walk-in shower Prior level of function: Reports needing occasional assist with BADLs. Reports daughter does most of the cooking, cleaning, and laundry. Mobility device used prior to admission: w/w Equipment available: Shower chair and Wheeled walker Community access / Driving: Driven by others Patient / Family goal(s): home at discharge Fall(s) within the last 6 months: Unable to recall OBJECTIVE: Appearance: Presentation upon OT arrival: Patient Sitting in bedside recliner Presentation upon OT departure: Patient Sitting in bedside recliner Bed / chair alarm in place and activated upon OT departure: Yes Call light within arms reach of patient at end of session: Yes Completed patient handoff and notified [employer] / RN, name: Indira, of patient's location and functional status upon completion of session Vital Signs: Patient with no symptoms or c/o distress Cognitive / Perceptual Assessment: A&O to self. Patient unable to recall month, day, year, location, or situation. Follows 1 step commands 100% UE ROM / Strength / Coordination: (A)ROM - Right: WFL throughout except ~110 shoulder flexion Strength - Right: 3-/5 shoulder, 4-/5 elbow through distally (A)ROM - Left: WFL throughout except ~110 shoulder flexion Strength - Left: 3-/5 shoulder, 4-/5 elbow through distally Visitor Services Assistant Strength (Right): good- Visitor Services Assistant Strength (Left): good Right Serial Opposition: Decreased rate Left Serial Opposition: Decreased rate Balance: Static sitting balance: good Dynamic sitting balance: good- Static standing balance: good- Dynamic standing balance: fair+ Mobility / Transfers: Bed mobility (Components & Assistance): NT, patient seated in bedside recliner upon OT arrival Transfer(s): Sit <> stand using wheeled walker with CGA Patient took at few steps forward and backward using wheeled walker with CGA Activities of Daily Living / Living Skills: UE dressing: Patient completed upper body dressing of Hospital gown as robe while Sitting in bedside chair / recliner with overall Moderate assistance. Patient required assistance for threading RUE, threading LUE, and pulling around back. Lower Body Dressing: Patient completed lower body dressing of Underwear while Sitting in bedside chair / recliner and Standing at bedside recliner with overall Maximal assistance. Patient required assistance for threading / unthreading RLE underwear, threading / unthreading LLE underwear, and pulling underwear over hips. Footwear: Patient completed footwear of Footie(s) while Sitting in bedside chair / recliner with overall Maximal assistance. Patient required assistance for donning / doffing right sock / footie and donning / doffing left sock / footie Other: Patient required mod assist to complete yenny hygiene while standing at bedside recliner after incontinence of bowel ASSESSMENT: Rehab Potential (Prognosis): good Problem List: Patient has impairments including: Decreased UE ROM , Decreased UE strength, Decreased balance, Decreased mobility, Decreased endurance, Decreased cognition, Decreased safety awareness,Long-standing deficits, and Decreased ADL independence. Barriers to Discharge: Cognitive deficit, Limited safety awareness, Limited insight into deficits, Decreased endurance, Upper extremity weakness, Lower extremity weakness, Long standing deficits, andIncontinence of bowel PLAN: OT Discharge Recommendations this date: OT RECOMMENDATIONS: OT Recommendation: Home with 24 hour supervision, Home Health OT (due to patient and family declining SNF placement) Justification of discharge recommendations flow sheet completed: Yes Frequency of therapy:OT Frequency during current admission: 3-5x/wk Intervention / Education needs: ADL training, Compensatory ADL strategies, Adaptive equipment education, Balance activities, Functional transfer training, Safety education, and UE home exercise program education Education provided: Patient has been educated on Role of OT, OT plan of care, ADL training, Functional transfer training, Balance training, and Safety education. Individual(s) needs ongoing reinforcement. Short Term Goals / Care Plan: Multi-Disciplinary Problems (from Occupational Therapy) Active Problems Problem: OT [facility] [place] Start Date: 12/09/22 Goal Start Date Expected End Date End Date [facility] 1 12/09/22 12/16/22 -- Goal Details: Patient will complete functional transfers using least restrictive device with SBA 1 time. Goal Start Date Expected End Date End Date [facility] 2 12/09/22 12/16/22 -- Goal Details: Patient will complete UB dressing, LB dressing, and footwear with min assist 1 time. Goal Start Date Expected End Date End Date OT [facility] 3 12/09/22 12/16/22 -- Goal Details: Patient will complete all components of toileting (toileting hygiene and clothing management) with min assist 1 time. Goal Start Date Expected End Date End Date [facility] 4 12/09/22 12/16/22 -- Goal Details: Patient will complete functional/meaningful task in standing for 5-8 minutes with CGAfor balance one time. Goal Start Date Expected End Date End Date [facility] 5 12/09/22 12/16/22 -- Goal Details: Patient will complete HEP to improve BUE strength/endurance and ADL participation with min verbal cues 1 time. If this is the last note, consider this the discharge summary Rivka Garcia OT 12/09/22 * Bev Adames MD - 12/09/2022 10:59 AM CDT DAILY PROGRESS NOTE C/C:SOB Interval History: No new events SUBJECTIVE: Complaints: No more SOB . No CP,no cough ROS: No fever,chills. No nausea,vomiting,abdominal pain,diarrhea. No headache,dizziness. OBJECTIVE: Vitals: Temp (24hrs), Av.9 ??C (98.5 ??F), Min:36.7 ??C (98 ??F), Max:37.3 ??C (99.1 ??F) Vitals: 12/08/22 2000 12/09/22 0000 12/09/22 0400 12/09/22 0827 BP: 145/63 121/52 123/66 124/54 BP Location: Right arm Right arm Right arm Right arm Patient Position: Lying Lying Lying Lying Pulse: 68 65 64 62 Resp: Temp: 36.7 ??C (98 ??F) 37.3 ??C (99.1 ??F) 37.1 ??C (98.8 ??F) 36.9 ??C (98.4 ??F) TempSrc: Axillary Axillary Axillary Oral SpO2: 92% 94% 96% 92% Weight: Height: LDA: PICC Single Lumen 11/11/22 Non-tunneled Power Left Brachial;Upper arm (Active) Placement Date/Time: 11/11/22 1310 Placed by External Staff?: Other hospital Catheter Time Out Checklist Completed: Yes Hand Hygiene Performed: Yes Site Prep: Chlorhexidine Site Prep Agent has Completely Dried Before Insertion: Yes All 5 Steril... Number of days: 25 External Urinary Catheter (Active) Placement Date/Time: 12/06/22 1700 Inserted by: SWATI LAY External Catheter Type: Female External Urinary Catheter Sizes: Female- One size Number of days: 0 I/O: Intake/Output Summary (Last 24 hours) at 12/09/2022 1059 Last data filed at 12/09/2022 0940 Gross per 24 hour Intake 471 ml Output 0 ml Net 471 ml Physical Exam General:Lying in bed,awake,alert,on RA,NAD SHEENT:Skin warm,dry,no rashes. No icterus,no cyanosis,no pallor,EOMI. Neck:Supple Respi:Slightly diminished breath sounds silverio, Cardio:RRR,no murmur GI:Abdomen obese,soft,bowel sounds +,non tender,not distended. Extre:1+ edema legs, no cyanosis,no pallor Neuro:Non focal.Resting Tremors of hands+ Psych:Mood/Affect normal.Behavior normal. Laboratory: Recent Results (from the past 24 hour(s)) POCT glucose Collection Time: 12/08/22 12:22 PM Result Value Ref Range Glucose, POC 145 70 - 199 mg/dL POCT glucose Collection Time: 12/08/22 5:16 PM Result Value Ref Range Glucose, POC 137 70 - 199 mg/dL Influenza A/B, RSV, and COVID-19 PCR Nasopharyngeal Collection Time: 12/08/22 7:15 PM Specimen: Nasopharyngeal Result Value Ref Range COVID-19 RNA Negative Negative Influenza A RNA Negative Negative Influenza B RNA Negative Negative RSV RNA Negative Negative POCT glucose Collection Time: 12/08/22 8:20 PM Result Value Ref Range Glucose, POC 194 70 - 199 mg/dL POCT glucose Collection Time: 12/09/22 2:55 AM Result Value Ref Range Glucose, POC 88 70 - 199 mg/dL CBC with auto differential Collection Time: 12/09/22 5:28 AM Result Value Ref Range WBC 8.3 3.8 - 9.9 K/cumm Hgb 7.5 (L) 11.9 - 15.5 g/dL Hct 24.3 (L) 35.6 - 45.5 % Plt 293 150 - 400 K/cumm MPV 11.1 9.1 - 12.3 fL RBC 2.54 (L) 3.90 - 5.20 M/cumm MCV 95.7 81.3 - 96.4 fL MCH 29.5 27.1 - 33.3 pg MCHC 30.9 (L) 32.3 - 35.7 g/dL RDW CV 16.3 (H) 11.1 - 14.9 % RDW SD 57.1 (H) 35.7 - 48.1 fL NRBC abs 0.05 (H) 0.00 - 0.01 K/cumm Renal function panel Collection Time: 12/09/22 5:28 AM Result Value Ref Range Sodium 143 135 - 145 mmol/L Potassium, pl 4.6 3.3 - 4.9 mmol/L Chloride 111 (H) 97 - 110 mmol/L CO2 20 (L) 22 - 32 mmol/L Anion gap 12 2 - 15 mmol/L BUN 68 (H) 8 - 25 mg/dL Creatinine 2.68 (H) 0.60 - 1.10 mg/dL Glucose 92 70 - 199 mg/dL Calcium 8.9 8.5 - 10.3 mg/dL Phosphorus, pl 5.5 (H) 2.3 - 4.5 mg/dL Albumin 2.9 (L) 3.5 - 5.0 g/dL Magnesium Collection Time: 12/09/22 5:28 AM Result Value Ref Range Magnesium 2.3 1.4 - 2.5 mg/dL Vancomycin level random Collection Time: 12/09/22 5:28 AM Result Value Ref Range Vancomycin random 32.8 mcg/mL Differential, auto Collection Time: 12/09/22 5:28 AM Result Value Ref Range Neutrophil abs 5.2 1.7 - 6.5 K/cumm Imm gran abs 0.0 0.0 - 0.1 K/cumm Lymphocyte abs 2.0 0.8 - 3.3 K/cumm Monocyte abs 0.9 (H) 0.2 - 0.8 K/cumm Eosinophil abs 0.2 0.0 - 0.5 K/cumm Basophil abs 0.0 0.0 - 0.1 K/cumm Neutrophil pct 62.0 % Imm gran pct 0.4 % Lymphocyte pct 24.4 % Monocyte pct 10.3 % Eosinophil pct 2.5 % Basophil pct 0.4 % eGFR Collection Time: 12/09/22 5:28 AM Result Value Ref Range eGFR 18 mL/min/1.73 m2 POCT glucose Collection Time: 12/09/22 8:08 AM Result Value Ref Range Glucose, POC 125 70 - 199 mg/dL Radiology: Scheduled Medications: amLODIPine, 10 mg, oral, Nightly atorvastatin, 20 mg, oral, Nightly benztropine, 1.5 mg, oral, Nightly carvediloL, 12.5 mg, oral, BID with meals (bkfst, dinner) cefepime, 2,000 mg, intravenous, Q24H SOL famotidine, 10 mg, oral, Daily ferric gluconate, 125 mg of elemental iron, intravenous, Once per day on Thu ferrous sulfate, 65 mg of elemental iron, oral, Daily with breakfast furosemide, 40 mg, intravenous, Q12H SOL heparin, 5,000 Units, subcutaneous, Q8H SOL insulin glargine, 15 Units, subcutaneous, Nightly insulin lispro, 0-4 Units, subcutaneous, Nightly insulin lispro, 0-5 Units, subcutaneous, TID with meals insulin lispro, 7 Units, subcutaneous, TID with meals metroNIDAZOLE, 500 mg, oral, TID pregabalin, 75 mg, oral, Nightly risperiDONE, 2 mg, oral, Nightly Current Facility-Administered Medications: albuterol HFA (PROVENTIL HFA,VENTOLIN HFA,PROAIR HFA) 90 mcg/actuation inhaler 2 puff, 2 puff, inhalation, Q4H PRN (RT), Robert Hernandez MD amLODIPine (NORVASC) tablet 10 mg, 10 mg, oral, Nightly, Robert Hernandez MD, 10 mg at 12/08/222020 atorvastatin (LIPITOR) tablet 20 mg, 20 mg, oral, Nightly, Robert Hernandez MD, 20 mg at 12/08/222020 benztropine (COGENTIN) tablet 1.5 mg, 1.5 mg, oral, Nightly, Robert Hernandez MD, 1.5 mg at12/08/222020 carvediloL (COREG) tablet 12.5 mg, 12.5 mg, oral, BID with meals (bkfst, dinner), Drew Hernandez MD, 12.5 mg at 12/09/22913 cefepime (MAXIPIME) 2,000 mg in sodium chloride 0.9% 100 mL IVPB, 2,000 mg, intravenous, Q24H SOL, En Chaudhary MD, Last Rate: 200 mL/hr at 12/09/22912, 2,000 mg at 12/09/22912 dextrose oral liquid liquid 15 g, 15 g, oral, Q15 Min PRN OR dextrose (D10W) 10% bolus 250 mL, 250 mL, intravenous, Q15 Min PRN, Robert Hernandez MD famotidine (PEPCID) tablet 10 mg, 10 mg, oral, Daily, Robert Hernandez MD, 10 mg at 12/09/22913 ferric gluconate (FERRLECIT) 125 mg of elemental iron in sodium chloride 0.9% 100 mL IVPB, 125 mg of elemental iron, intravenous, Once per day on Thu, Jimbo Strauss MD, Last Rate: 110 mL/hrat 12/08/221901, 125 mg of elemental iron at 12/08/221901 ferrous sulfate delayed release tablet 65 mg of elemental iron, 65 mg of elemental iron, oral, Daily with breakfast, Darlyn Guzman MD, 65 mg of elemental iron at 12/09/22912 furosemide (LASIX) 10 mg/mL injection 40 mg, 40 mg, intravenous, Q12H SOL, Robert Hernandez MD, 40 mg at 12/09/22912 glucagon injection 1 mg, 1 mg, intramuscular, Q30 Min PRN, Robert Hernandez MD heparin 5,000 unit/mL injection 5,000 Units, 5,000 Units, subcutaneous, Q8H SOL, Robert Hernandez MD, 5,000 Units at 12/09/22 0544 insulin glargine (LANTUS, SEMGLEE) 100 unit/mL injection 15 Units, 15 Units, subcutaneous, Nightly,Robert Hernandez MD, 15 Units at 12/08/222020 insulin lispro (HumaLOG, ADMELOG) 100 unit/mL injection 0-4 Units, 0-4 Units, subcutaneous, Nightly, Robert Hernandez MD insulin lispro (HumaLOG, ADMELOG) 100 unit/mL injection 0-5 Units, 0-5 Units, subcutaneous, TID with meals, Robert Hernandez MD, 2 Units at 12/07/221802 insulin lispro (HumaLOG, ADMELOG) 100 unit/mL injection 7 Units, 7 Units, subcutaneous, TID with meals, Robert Hernandez MD, 7 Units at 12/09/22 0917 metroNIDAZOLE (FLAGYL) tablet 500 mg, 500 mg, oral, TID, Krishna Morgan MD, 500 mg at 12/09/22 0544 polyethylene glycol (MIRALAX) packet 17 g, 17 g, oral, Daily PRN, Robert Hernandez MD pregabalin (LYRICA) capsule 75 mg, 75 mg, oral, Nightly, Robert Hernandez MD, 75 mg at 12/08/222020 risperiDONE (RisperDAL) tablet 2 mg, 2 mg, oral, Nightly, Robert Hernandez MD, 2 mg at 12/08/222020 Continuous Medications: PRN Medications: albuterol HFA dextrose OR dextrose glucagon polyethylene glycol Hospital course: 72 y.o Obese AAF pt with history of CHF, CKD, osteomyelitis, diabetes, schizophrenia, movement disorder, dementia, hyperlipidemia, hypertension presented to ED with a C/C of SOB. ASSESSMENT/PLAN: All diagnoses are present on admission unless otherwise stated. Principal Problem: -- Acute on chronic diastolic CHF: Mild. BNP only 633 Started on IV Lasix. Consulted Cardiology Telemetry Improving. 12/08 TTE showed EF 65%,no focal wall motion abnormalities.Moderate pulmonary hypertension Will switch IV Lasix to PO. Active Problems: --Elevated Troponins 35,33,32 -flat elevation.Likely sec to CKD --BRENDA on CKD4:Trend GFR with diuresis. Consulted Nephrology Cozaar on hold Still with rising Cr. Will watch closely, avoid nephrotoxins,and hypotension. --Mild NAGMA: Sec to CKD. Monitor closely. --Hyperphosphotemia:Sec to CKD. Stable. --S/P Hyperkalemia: Sec to # 2.Resolved -- Right 1st toe osteomyelitis: The patient refused surgery. The power of senior attorney is less certain.The plan was for three weeks of antibiotics and reassess. The POA requested 2nd opinion with our Infectious Disease doctor and Podiatry. 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 Switched doxycycline to Vancomycin and Flagyl. Podiatry recommended conservative wound care per Wound nurse . Podiatry signed off. To continue vanc and Flagyl to 12/23 To DC cefepime upon discharge To check CBC, CMP, vanc level weekly and to fax to [phone] -- Bibasilar consolidations: Suspect his atelectasis due to pleural effusions. Low suspicion for pneumonia. 12/07 Repeat chest x-ray showed tiny right effusion. -- DM-2:Continue Lantus, humalog q ac. SSI. BS 90-180 --Schizophrenia with movement disorder: Movement disorder thought to be due to antipsychotic therapy. Continue Risperdal for schizophrenia continue Cogentin for the movement disorder. --Dementia: Patient's daughter is her power of senior attorney --Normocytic anemia: POA. Hgb now stable. No signs of overt bleeding. Will monitor Hgb trend closely and Tx with PRBC prn My total encounter time on 12/09/2022 was 45 minutes which was spent in the activities documented inthe note. This includes time spent prior to the visit and after the visit in direct care of the patient. This time does not include time spent in any separately reportable services. DVT Prophylaxis with SQ Heparin Code status: Full code D/W RN Medical Decision Making complexity: Moderate Discharge disposition:Home with [facility] on IV ABx tomorrow. Bev Adames MD 12/09/2022 10:59 AM * Mindy William, PT - 12/09/2022 10:18 AM CDT Physical Therapy INITIAL EVALUATION PATIENT'S NAME:Sixto Chakraborty :1950 AGE:72 y.o. ROOM:[place] [id number] TIME IN: 10:35 TIME OUT: 11:13 CURRENT DIAGNOSIS AND HOSPITAL COURSE: admitted 12/06/2022 with c/o SOB x 2 weeks. H/o CHF, CKD, osteomyelitis, DM, schizophrenia d/o, dementia, HLD, HTN. Per chart, [facility] day prior to this presentation. Patient was treated for right 1st toe osteomyelitis. She was discharged on 12/05/2022. Chest xray-- bilateral effusions and bibasilar consolidation Patient Active Problem List Diagnosis Schizoaffective disorder, bipolar type ([facility]) ([facility]) Diabetic neuropathy (HCC) Type 2 diabetes mellitus with diabetic neuropathy, with long-term current use of insulin ([facility]) ([facility]) Hypertension associated with diabetes (HCC) Amputation of toe of right foot ([facility]) ([facility]) Iron deficiency anemia Gastroesophageal reflux disease Hyperlipidemia associated with type 2 diabetes mellitus ([facility]) Dementia ([facility]) Schizoaffective disorder, bipolar type ([facility]) ([facility]) 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 2 diabetes mellitus ([facility]) ([facility]) Encounter for Medicare annual wellness exam Late onset Alzheimer's dementia without behavioral disturbance ([facility]) Volume overload Anemia Toe necrosis ([facility]) ([facility]) Physical deconditioning Left leg DVT ([facility]) ([facility]) Pulmonary nodule Retention of urine, unspecified Unspecified osteoarthritis, unspecified site Unsteadiness on feet Weakness Parkinsonism ([facility]) Wheezing Anemia in stage 4 chronic kidney disease ([facility]) Osteomyelitis of great toe of right foot ([facility]) ([facility]) Abnormal urinalysis Cellulitis of great toe of right foot BRENDA (acute kidney injury) ([facility]) ([facility]) Acute on chronic diastolic congestive heart failure ([facility]) ([facility]) Bibasilar consolidations Movement disorder Past Medical History: Diagnosis Date Arthritis CHF (congestive heart failure) ([facility]) ([facility]) Dementia ([facility]) Depression Diabetic neuropathy ([facility]) Hyperlipidemia Hypertension Movement disorder Osteomyelitis (HCC) Renal disorder Schizophrenia ([facility]) Type 2 diabetes mellitus ([facility]) Past Surgical History: Procedure Laterality Date SECTION Right right foot TOE AMPUTATION Right 01/06/2020 4th toe amp/ foot debridement/ Dr. Anat Pelayo SUBJECTIVE LIVES WITH: daughter LIVING ENVIRONMENT: apartment with level entry PRIOR LEVEL OF FUNCTION: patient reports that she is independent with bed mobility, functional transfers and ambulating household distances with a w/w at all times. She states he daughter does most of the cooking cleaning and laundry. EQUIPMENT OWNED: w/w EQUIPMENT USED: w/w SOCIAL SUPPORTS: daughter PATIENT/FAMILY GOAL: home at discharge MENTAL STATUS/ORIENTATION: Alert and Oriented to location only (patient states that she's in the hospital because she was having pain in her legs OBJECTIVE PRECAUTIONS: fall and bed/chair alarm APPEARANCE/POSTURE: 72 y/o female lying supine in bed with call light and phone within reach VITAL SIGNS: Resting BP: NT Post-activity BP: 136/61 Resting heart rate: 64 bpm Post-activity heart rate: 65 bpm Resting O2 sat: 95% on RA Post-activity O2 sat: 97% on RA PAIN: Pre-therapy pain level: 12/29 Pain location: right foot ( back of the heel ) Pain intervention: RN notified Post-therapy pain level/response to intervention: 12/29 LE ASSESSMENTS: Right LE ROM: WFL Left LE ROM: WFL Right LE strength: 4/5 gross strength Left LE strength: 4/5 gross strength Coordination: not formally assessed Tone: no deficits noted MOBILITY: Bed mobility: supine to sit SBA Transfers: sit to stand (EOB) with a w/w with CGA/min assist, bed to chair without a device CGA/minassist. Ambulation: Distance: 3-4 steps (bed to chair--- distance limited due to patient c/o dizziness with minimal activity) Assistive device: no assistive device Level of assist: minimal assist Deviations: decreased step length Stairs: not appropriate this date Balance/Special Tests: Static sitting balance: GOOD (EOB) Dynamic sitting balance: GOOD (EOB) Static standing balance: GOOD-/FAIR+ Dynamic standing balance: GOOD-/FAIR+ AMPAC: Basic Mobility - 6 Click How [...] a bed to a chair including wheelchair?: A little How much help does the patient currently need: Walk in hospital room?: A little How much help from another person does the patient currently need: Climbing 3-5 steps with a railing?: A little Total 6 Click Score (range 6-24): 21 6 click interpretation: AM-PAC 6 Click scores > 18 = Likely home discharge AM-PAC 6 Click scores < 18 = Likely require inpatient rehab or care home placement at discharge APPEARANCE/POSTURE (end of session): 72 y/o female sitting in bedside chair with call light and Phone within reach, chair alarm in place and turned on EDUCATION: bed mobility , functional transfer training, and role of PT evaluation RESPONSE TO EDUCATION: needs reinforcement and verbalizes understanding ASSESSMENT PROBLEM LIST: pain, decreased LE strength , impaired balance , gait instability, decreased endurance, and long standing deficits BARRIERS TO LEARNING: Physical and Cognitive BARRIERS TO DISCHARGE: Pain, Limited insight into deficits, Decreased endurance, Lower extremity weakness, and Long standing deficits REHAB POTENTIAL/PROGNOSIS: good PLAN PT Discharge Recommendations this date: PT Recommendation/Plan: Home Health PT, Home with 24 hour supervision Treatment Plan/Interventions: bed mob, transfers, gait training, HEP PT Frequency during current admission: 3-5x/wk Equipment Recommendations: none Refer to multi-disciplinary care plan section for PT specific goals. If this is the last note, please consider this the discharge summary. Multi-Disciplinary Problems (from Physical Therapy) Active Problems Problem: PT Misc Start Date: 12/09/22 Goal Start Date Expected End Date End Date PT STG - Patient will perform supine to/from sit with mod indep. 12/09/22 12/16/22 -- Goal Start Date Expected End Date End Date PT STG - Patient will perform sit to/from stand with mod indep. 12/09/22 12/16/22 -- Goal Start Date Expected End Date End Date PT STG - Patient will perform bed to/from chair with mod indep. 12/09/22 12/16/22 -- Goal Start Date Expected End Date End Date PT STG - Patient will ambulate 50 ft x 2 with a w/w with SBA. 12/09/22 12/16/22 -- Goal Start Date Expected End Date End Date PT STG - Patient will perform HEP indep. 12/09/22 12/16/22 -- * Shiloh Barrientos NP - 12/09/2022 9:04 AM CDT Daily Progress SUBJECTIVE: Patient is resting in bed. NAD. Denies chest pain, sob, palpitations or syncope. OBJECTIVE: Vitals: 12/08/22 2000 12/09/22 0000 12/09/22 0400 12/09/22 0827 BP: 145/63 121/52 123/66 124/54 BP Location: Right arm Right arm Right arm Right arm Patient Position: Lying Lying Lying Lying Pulse: 68 65 64 62 Resp: 20 24 20 18 Temp: 36.7 ??C (98 ??F) 37.3 ??C (99.1 ??F) 37.1 ??C (98.8 ??F) 36.9 ??C (98.4 ??F) TempSrc: Axillary Axillary Axillary Oral SpO2: 92% 94% 96% 92% Weight: Height: Intake/Output Summary (Last 24 hours) at 12/09/2022 0904 Last data filed at 12/09/2022 0400 Gross per 24 hour Intake 480 ml Output 0 ml Net 480 ml Scheduled Medications Medication Dose Route Frequency amLODIPine (NORVASC) tablet 10 mg 10 mg oral Nightly atorvastatin (LIPITOR) tablet 20 mg 20 mg oral Nightly benztropine (COGENTIN) tablet 1.5 mg 1.5 mg oral Nightly carvediloL (COREG) tablet 12.5 mg 12.5 mg oral BID with meals (bkfst, dinner) cefepime (MAXIPIME) 2,000 mg in sodium chloride 0.9% 100 mL IVPB 2,000 mg intravenous Q24H [facility] famotidine (PEPCID) tablet 10 mg 10 mg oral Daily ferric gluconate (FERRLECIT) 125 mg of elemental iron in sodium chloride 0.9% 100 mL IVPB 125 mg ofelemental iron intravenous Once per day on Thu ferrous sulfate delayed release tablet 65 mg of elemental iron 65 mg of elemental iron oral Daily with breakfast furosemide (LASIX) 10 mg/mL injection 40 mg 40 mg intravenous Q12H [facility] heparin 5,000 unit/mL injection 5,000 Units 5,000 Units subcutaneous Q8H [facility] insulin glargine (LANTUS, SEMGLEE) 100 unit/mL injection 15 Units 15 Units subcutaneous Nightly insulin lispro (HumaLOG, ADMELOG) 100 unit/mL injection 0-4 Units 0-4 Units subcutaneous Nightly insulin lispro (HumaLOG, ADMELOG) 100 unit/mL injection 0-5 Units 0-5 Units subcutaneous TID with meals insulin lispro (HumaLOG, ADMELOG) 100 unit/mL injection 7 Units 7 Units subcutaneous TID with meals metroNIDAZOLE (FLAGYL) tablet 500 mg 500 mg oral TID pregabalin (LYRICA) capsule 75 mg 75 mg oral Nightly risperiDONE (RisperDAL) tablet 2 mg 2 mg oral Nightly LABS: Recent Labs Lab Units 12/09/22 0528 WBC K/cumm 8.3 HEMOGLOBIN g/dL 7.5* HEMATOCRIT % 24.3* PLATELETS K/cumm 293 Recent Labs Lab Units 12/09/22 0808 12/09/22 0528 12/06/22 1452 12/06/22 1451 SODIUM mmol/L -- 143 < > 137 POTASSIUM PLASMA mmol/L -- 4.6 < > 5.1* CHLORIDE mmol/L -- 111* < > 106 CO2 mmol/L -- 20* < > 20* ANIONGAP mmol/L -- 12 < > 11 GLUCOSE mg/dL -- 92 < > 206* POC GLUCOSE MONITOR mg/dL 125 -- < > -- BUN SERUM mg/dL -- 68* < > 51* CREATININE mg/dL -- 2.68* < > 2.37* CALCIUM mg/dL -- 8.9 < > 9.2 ALBUMIN g/dL -- 2.9* < > 3.2* ALK PHOS Units/L -- -- -- 100 ALT Units/L -- -- -- 10 AST Units/L -- -- -- 14 BILIRUBIN TOTAL mg/dL -- -- -- <0.2 < > = values in this interval not displayed. No results found for: BNP Lab Results Component Value Date TROPONINI <0.04 05/04/2014 Exam General: in no apparent distress Neuro: Alert and oriented x 3, moves all extremities well Lungs: symmetric, unlabored, clear to auscultation bilaterally Heart: S1,S2, regular rate & rhythm, no murmurs, rubs, or gallops Abdomen: soft, non-tender, non-distended, bowel sounds present Extremities: no LE edema, palpable peripheral pulses BL TTE 12/08/22 Conclusions: Normal left ventricular size. Normal left ventricular systolic function with no focal wall motion abnormalities. Ejection fraction is measured at 65 %. Normal structure of the tricuspid valve. Moderate pulmonary hypertension based on right ventricular systolic pressure. Estimated peak RVSP is 50 mmHg. Mild tricuspid regurgitation. Dilated IVC with respiratory collapse consistent with elevated right atrial pressure (10-15 mmHg). ASSESSMENT/PLAN: Shortness of breath/fluid overload -this may be multifactorial with her chronic kidney disease and history of congestive heart failure -ECHO showed normal LV function, EF 65%,Mod pulmonary hypertension. Estimated peak RVSP is 50 mmHg.Mild TR -proBNP is mildly elevated at 633, unclear of significance in light of chronic kidney disease -elevated troponin due to renal dysfunction does not represent ACS Acute on chronic kidney disease -cr 2.68 -nephrology is following Diabetes mellitus type 2 -A1c 7.1 -Manage per primary Dementia -according to the chart she has Alzheimer's dementia without behavioral disturbance Hypertension -BP is well controlled Right great toe ulcer with osteomyelitis - on antibiotic therapy as per Infectious Disease - normal TEO and TBI Shiloh Barrientos NP [facility] 12/09/2022 9:04 AM * Adryan Thomas [facility] - 12/08/2022 4:47 PM CDT Pharmacokinetic Consult - Vancomycin Dosing Sixto Chakraborty is a 72 y.o. female who has been consulted for vancomycin dosing for bone/joint infection. Relevant clinical data and objective history reviewed: Creatinine Date Value Ref Range Status 12/08/2022 2.58 (H) 0.60 - 1.10 mg/dL Final BUN Date Value Ref Range Status 12/08/2022 67 (H) 8 - 25 mg/dL Final Estimated Creatinine Clearance: 15.6 mL/min (A) (by C-G 65 yr and older- minimum SCr 0.8 based on SCr of 2.58 mg/dL (H)). Lab Results Component Value Date/Time WBC 8.0 12/08/2022 08:01 AM HGB 7.2 (L) 12/08/2022 08:01 AM HCT 23.2 (L) 12/08/2022 08:01 AM MCV 96.3 12/08/2022 08:01 AM LABPLAT 294 12/08/2022 08:01 AM No lab exists for component: LACTATEWB Temp Readings from Last 3 Encounters: 12/08/22 36.8 ??C (98.3 ??F) (Oral) 12/05/22 37 ??C (98.6 ??F) (Oral) 11/13/22 36.7 ??C (98.1 ??F) (Oral) Patient Weight 12/06/22 78.9 kg (173 lb 15.1 oz) GOAL TROUGH 10-20 MG/L GOAL TROUGH 15-20 MG/L Cellulitis Febrile nuetropenia Decubitus ulcers SSTI Empiric therapy UTI Bacteremia/Central line infections Osteomyeltis/septic arthritis Pneumonia (Aspiration, HCAP, CAP) Sepsis/septic Arthritis Endocarditis Meningitis INITIAL DOSING FOR ALL PATIENTS -- LOADING DOSE - 25MG/KG (MAX 2500MG) ROUND ALL DOSES TO NEAREST 250MG SCHEDULED DOSING INTERMITTENT DOSING Subsequent dosing 15mg/kg (Max of 2000mg/dose) If initial total daily dose is calculated to >4000mg/day, default to 1500mg q8h Trough will be ordered prior to the 3rd or 4th dose Subsequent dosing 10-15mg/kg randomly If patient consistently clearing vancomycin, consider changing to a scheduled dose. More frequent monitoring may be necessary HEMODIALYSIS DOSING CRRT DOSING Pre-Dialysis Level Dosing After Hemodialysis Less than 15 mg/L 15mg/kg (max of 1500mg) 15-25 mg/L 7.5-10 mg/kg (max of 1500mg) Greater than 25 mg/L No dose after HD Random level will be ordered for the morning after the loading dose. (At least 6 hours later) Pre-dialysis levels will be ordered at least weekly For patients receiving dialysis greater than 3 times per week additional monitoring may be necessary Dose 15mg/kg 24h after initial dose Order random level 48 hrs after initial dose Goal is to maintain level greater than 15mg/L PERITONEAL DIALYSIS DOSING Dose 10mg/kg for subsequent dosing Random level will be ordered every 48 to 72 hours Re-dose when level is below 20mg/L DOSING FREQUENCY Age CrCl (mL/min) Dosing Interval 40 or less >70 Q8H 40 or less 50 - 70 Q12H 41-65 >50 Q12H >65 >49 Q24H Any age 35-49 Q24H Any age < 35 or HEMODIALYSIS; PERITONEAL DIALYSIS; CVVHD RANDOM DOSING Assessment Baseline culture/source/susceptibility: 10/2022 toe wound - MRSA, osteo Other antibiotics ordered include: Cefepime, recently doxycycline Dialysis patient: No Plan The patient will be started on vancomycin utilizing bolus dose once followed by random levels basedon actual body weight. Will initiate dose at 2000 mg IV once, followed by intermittent dosing. Pharmacy will also follow closely for signs and symptoms of toxicity. Serum creatinine will be ordered per policy. Vancomycin random level has been ordered to be drawn on 12/09/22 at 1700. Goal level is 15 - 20 mcg/mL. Day 1 of therapy. Adryan Thomas, Pharm.D, BCPS * Jimbo Strauss MD - 12/08/2022 4:00 PM CDT Nephrology Daily Progress [facility]# [id number] SS#: [id number] Phone#: [phone] #: [id number] Subjective Chief complaint of Interval History: feels well, still some what confused, poor po intake Objective Vitals: 24hr Min/Max: Temp Min: 36.3 ??C (97.3 ??F) Max: 37.1 ??C (98.8 ??F) Pulse Min: 61 Max: 114 BP Min: 120/65 Max: 145/53 Resp Min: 18 Max: 24 SpO2 Min: 92 % Max: 96 % Intake/Output Summary (Last 24 hours) at 12/10/2022 0814 Last data filed at 12/09/2022 1219 Gross per 24 hour Intake 231 ml Output 275 ml Net -44 ml Wt Readings from Last 3 Encounters: 12/06/22 78.9 kg (173 lb 15.1 oz) 12/05/22 79.3 kg (174 lb 12.8 oz) 11/10/22 69.5 kg (153 lb 4.8 oz) Temp Av.7 ??C (98.1 ??F) Min: 36.3 ??C (97.3 ??F) Max: 37.1 ??C (98.8 ??F) BP Min: 120/65 Max: 145/53 Pulse Av.2 Min: 61 Max: 114 Resp Av Min: 18 Max: 24 SpO2 Av % Min: 92 % Max: 96 % Most Recent: Vitals: 12/10/22 0405 BP: Pulse: 66 Resp: Temp: SpO2: I/O last 2 completed shifts: In: 231 [P.O.:231] Out: 275 [Urine:275] No intake/output data recorded. Current Facility-Administered Medications Medication Dose Route Frequency Last Rate Last Admin albuterol HFA (PROVENTIL HFA,VENTOLIN HFA,PROAIR HFA) 90 mcg/actuation inhaler 2 puff 2 puff inhalation Q4H PRN (RT) amLODIPine (NORVASC) tablet 10 mg 10 mg oral Nightly 10 mg at 12/09/222114 atorvastatin (LIPITOR) tablet 20 mg 20 mg oral Nightly 20 mg at 12/09/222114 benztropine (COGENTIN) tablet 1.5 mg 1.5 mg oral Nightly 1.5 mg at 12/09/222114 carvediloL (COREG) tablet 12.5 mg 12.5 mg oral BID with meals (bkfst, dinner) 12.5 mg at 12/09/221713 cefepime (MAXIPIME) 2,000 mg in sodium chloride 0.9% 100 mL IVPB 2,000 mg intravenous Q24H SOL 200 mL/hr at 12/09/22912 2,000 mg at 12/09/22912 dextrose oral liquid liquid 15 g 15 g oral Q15 Min PRN Or dextrose (D10W) 10% bolus 250 mL 250 mL intravenous Q15 Min PRN famotidine (PEPCID) tablet 10 mg 10 mg oral Daily 10 mg at 12/09/22913 ferric gluconate (FERRLECIT) 125 mg of elemental iron in sodium chloride 0.9% 100 mL IVPB 125 mg ofelemental iron intravenous Once per day on Thu 110 mL/hr at 12/08/22 190 125 mg of elemental iron at 12/08/221901 ferrous sulfate delayed release tablet 65 mg of elemental iron 65 mg of elemental iron oral Daily with breakfast 65 mg of elemental iron at 12/09/22912 furosemide (LASIX) tablet 40 mg 40 mg oral BID DIURETIC glucagon injection 1 mg 1 mg intramuscular Q30 Min PRN heparin 5,000 unit/mL injection 5,000 Units 5,000 Units subcutaneous Q8H SOL 5,000 Units at 12/10/22601 insulin glargine (LANTUS, SEMGLEE) 100 unit/mL injection 15 Units 15 Units subcutaneous Nightly 15 Units at 12/09/222114 insulin lispro (HumaLOG, ADMELOG) 100 unit/mL injection 0-4 Units 0-4 Units subcutaneous Nightly insulin lispro (HumaLOG, ADMELOG) 100 unit/mL injection 0-5 Units 0-5 Units subcutaneous TID with meals 1 Units at 12/09/221712 insulin lispro (HumaLOG, ADMELOG) 100 unit/mL injection 7 Units 7 Units subcutaneous TID with meals7 Units at 12/09/221713 metroNIDAZOLE (FLAGYL) tablet 500 mg 500 mg oral TID 500 mg at 12/10/22 06 polyethylene glycol (MIRALAX) packet 17 g 17 g oral Daily PRN pregabalin (LYRICA) capsule 75 mg 75 mg oral Nightly 75 mg at 12/09/222114 risperiDONE (RisperDAL) tablet 2 mg 2 mg oral Nightly 2 mg at 12/09/222114 Continuous Medications Medication Dose Last Rate LDA: PICC Single Lumen 11/11/22 Non-tunneled Power Left Brachial;Upper arm (Active) Placement Date/Time: 11/11/22 1310 Placed by External Staff?: Other hospital Catheter Time Out Checklist Completed: Yes Hand Hygiene Performed: Yes Site Prep: Chlorhexidine Site Prep Agent has Completely Dried Before Insertion: Yes All 5 Steril... Number of days: 28 External Urinary Catheter (Active) Placement Date/Time: 12/06/22 170 Inserted by: SWATI LAY External Catheter Type: Female External Urinary Catheter Sizes: Female- One size Number of days: 3 Vent settings: Hemodynamic parameters for last 24 hours: Physical Exam: General Appearance: Alert, cooperative, no distress, appears stated age, well developed, well nourished Head: Normocephalic, without obvious abnormality, atraumatic Eyes: PERRL, conjunctiva/corneas clear, EOM's intact, both eyes, anicteric Neck: Supple, symmetrical, trachea midline, no adenopathy; thyroid: No enlargement/tenderness/nodules; no carotid bruits, No JVD Lungs: Clear to auscultation bilaterally, respirations unlabored Cardiovascular: Regular rate and rhythm, S1 and S2 normal, no murmur, rub or gallop Abdomen: Soft, non-tender, bowel sounds active all four quadrants, non-distended Extremities: Extremities normal, +1 LE edema Skin: Skin color, texture, turgor normal, no rashes, lesions or bruising Neurologic: Alert & oriented person, + tremor Psychosocial: flat Dialysis Access Exam: Lab/Radiology/Diagnostic Review: Recent Labs Lab Units 12/10/22 0726 12/10/22 0542 12/09/22 0808 12/09/22 0528 12/08/22 1222 12/08/22 0801 SODIUM mmol/L -- 144 -- 143 -- 141 POTASSIUM PLASMA mmol/L -- 4.6 -- 4.6 -- 4.6 CHLORIDE mmol/L -- 112* -- 111* -- 109 CO2 mmol/L -- 19* -- 20* -- 20* BUN SERUM mg/dL -- 69* -- 68* -- 67* CREATININE mg/dL -- 2.69* -- 2.68* -- 2.58* [id number] mL/min/1.73 m2 -- 18 -- 18 -- 19 GLUCOSE mg/dL -- 158 -- 92 -- 119 POC GLUCOSE MONITOR mg/dL 142 -- < > -- < > -- CALCIUM mg/dL -- 8.9 -- 8.9 -- 9.2 ALBUMIN g/dL -- 3.1* -- 2.9* -- 2.9* PHOSPHORUS PLASMA mg/dL -- 5.2* -- 5.5* -- 5.5* < > = values in this interval not displayed. Additional Labs: Recent Labs Lab Units 12/10/22 0542 12/09/22 0528 12/08/22 0801 WBC K/cumm 10.6* 8.3 8.0 HEMOGLOBIN g/dL 7.1* 7.5* 7.2* HEMATOCRIT % 23.0* 24.3* 23.2* PLATELETS K/cumm 299 293 294 NEUTROS PCT % 68.6 62.0 56.6 LYMPHS PCT % 18.8 24.4 29.1 MONOS PCT % 9.2 10.3 10.4 EOS PCT % 2.4 2.5 3.0 Assessment/Plan CKD: stage 3b, due to dm, htn. Expect some rise due to diuresis. HTN: adequately controlled Edema: mostly LE some combination of CKD, pulmonary HTN, on going diuresis. Will add metolazone to regimen Anemia: combination of CKD, possible iron deficiency Dyspnea: due to volume overload. Hyperkalemia: mild. 7. Tremors: possible related to parkinson. May benefit form neurology consult. 8. Anemia: check iron status DICTATION DISCLAIMER: This note is transcribed using the Epoxy direct voice recognition system without human x ray tech. In an effort to expedite patient care, this note has not been adjusted for typographical, grammatical, and syntax by a trained medical instrument technician. Portions of this note have been copied from the medical record, but edited appropriately to accurately reflect the patient's current clinical state. Jimbo Strauss Office/exchange: [phone] Pager: [phone] * Krishna Morgan MD - 12/08/2022 2:53 PM CDT Images from the original note were not included. Infectious Disease Sixto Chakraborty Admit Date: 12/06/2022 LOS: 2 Days Consulting physician:Bev Adames MD Reason for consult: osteomyelitis Interval Course Overall patient has improved since my last note. New Symptoms Patient has no new symptoms ATBX Tetracycline/cefepime Data Vitals: 12/08/22 0007 12/08/22 0433 12/08/22 0815 12/08/22 1252 BP: 141/62 133/69 128/66 136/77 BP Location: Right arm Right arm Right arm Right arm Patient Position: Lying Lying Lying Lying Pulse: 69 75 68 70 Resp: 18 18 19 Temp: 36.8 ??C (98.3 ??F) 36.7 ??C (98 ??F) 36.7 ??C (98.1 ??F) 36.8 ??C (98.3 ??F) TempSrc: Oral Oral Oral Oral SpO2: 92% 94% 92% 93% Weight: Height: Temp (24hrs), Av.8 ??C (98.2 ??F), Min:36.7 ??C (98 ??F), Max:36.9 ??C (98.4 ??F) Recent Labs Lab Units 12/08/22 0801 12/06/22 1451 12/05/22 0735 WBC K/cumm 8.0 8.6 7.5 HEMOGLOBIN g/dL 7.2* 7.7* 7.6* HEMATOCRIT % 23.2* 25.2* 24.2* PLATELETS K/cumm 294 288 280 Recent Labs Lab Units 12/08/22 0801 12/06/22 1451 12/05/22 0735 BUN SERUM mg/dL 67* 51* 51* CREATININE mg/dL 2.58* 2.37* 2.30* Scheduled Meds:amLODIPine, 10 mg, oral, Nightly atorvastatin, 20 mg, oral, Nightly benztropine, 1.5 mg, oral, Nightly carvediloL, 12.5 mg, oral, BID with meals (bkfst, dinner) cefepime, 2,000 mg, intravenous, Q24H SOL doxycycline hyclate, 100 mg, oral, BID - special famotidine, 10 mg, oral, Daily ferric gluconate, 125 mg of elemental iron, intravenous, Once per day on Thu ferrous sulfate, 65 mg of elemental iron, oral, Daily with breakfast furosemide, 40 mg, intravenous, Q12H SOL heparin, 5,000 Units, subcutaneous, Q8H SOL insulin glargine, 15 Units, subcutaneous, Nightly insulin lispro, 0-4 Units, subcutaneous, Nightly insulin lispro, 0-5 Units, subcutaneous, TID with meals insulin lispro, 7 Units, subcutaneous, TID with meals pregabalin, 75 mg, oral, Nightly risperiDONE, 2 mg, oral, Nightly Continuous Infusions: PRN Meds:. albuterol HFA dextrose OR dextrose glucagon polyethylene glycol Review of Systems: Gen: denies fevers, denies chills, denies sweats, denies unintentional weight loss HEENT: Denies sore throat, denies thrush Neck: Denies palpable lymph nodes, denies neck stiffness Cv: denies chest pain, denies palpitations Resp: Denies SOB, Denies orthopnea Gi: Denies abdominal pain, Denies diarrhea, denies n/v Extrem: Denies gross deformities, denies joint pain, denies myalgias Skin: Denies rashes, denies lesions Neuro: Denies weakness, denies paresthesias, denies memory loss Psych: denies depression, denies anxiety Objective: Vitals: 24hr Min/Max: Temp Min: 36.2 ??C (97.2 ??F) Max: 37 ??C (98.6 ??F) Pulse Min: 66 Max: 90 BP Min: 119/74 Max: 142/53 Resp Min: 12 Max: 22 SpO2 Min: 90 % Max: 99 % Most Recent : Vitals Vitals: 12/07/22 0000 12/07/22 0400 12/07/22 0827 12/07/22 1146 BP: 126/76 123/72 119/74 141/66 BP Location: Right arm Right arm Right arm Right arm Patient Position: Lying Lying Lying Lying Pulse: 90 69 75 70 Resp: Temp: 37 ??C (98.6 ??F) 36.4 ??C (97.6 ??F) 36.8 ??C (98.3 ??F) 36.7 ??C (98.1 ??F) TempSrc: Axillary Axillary Oral Oral SpO2: 90% 92% 92% 98% Weight: Height: Physical Exam: General appearance: alert, cooperative, no distress HEENT: (-)icterus, Oropharnyx is normal, NCAT Neck: No palpable LN Lungs: Course breath sounds and symmetric; minimal respiratory effort, no r/w/c Heart: regular rhythm, normal S1 and S2, no m/r/g Abdomen: soft without mass, non-tender, +bowel sounds, no HSM Skin: (-)new rashes, right great toe with dry gangrene. No drainage. Minimal erythema around the toe. MSK: no gross deformities, FROM Vascular: no Edema, Neuro: No focal deficits Psych: Appropriate mood and affect Impression: 1 x 1 cm ulceration to Tip of right great toe, dry wound bed, no odor, no drainage Lab/Radiology/Diagnostic Review: 12/07 chest x-ray FINDINGS: There is a tiny right effusion. The remainder of the lungs are clear. Heart not enlarged. Aortic atherosclerosis. No failure. The tip of a left PICC line is in the distal superior vena cava. Cultures 11/08 right toe culture with MRSA and mixed Gram-positive organisms 11/30 urine culture with clinically insignificant MRI Foot Right WO Contrast Result Date: 11/10/2022 There is soft tissue swelling involving the right great toe with a distal wound. There is are smallsites of erosion involving the great toe distal tuft with associated marrow edema extending into the distal phalanx base. No drainable fluid collection. There has been prior application of the 4th digit through the metatarsal neck. There is subcutaneous edema about the ankle and along the dorsum ofthe foot. Mild first metatarsophalangeal joint chondrosis. There is subacute on chronic denervationof intrinsic foot musculature. There is tendinopathy of the distal Achilles tendon. Impression: 1. Distal right great toe wound with osteomyelitis of the distal phalanx and small erosions of the distal tuft. Assessment: 1. Pneumonia 2. Right great toe ulcer with osteomyelitis patient is supposed to be on vanc and Flagyl through 12/23 3. Dementia 4. Acute kidney injury 5. CHF/diabetes mellitus/schizophrenia 6. Bilateral pleural effusions Plan: Change doxycycline to vanc and Flagyl and continue on cefepime patient is supposed to be on IV antibiotic in the form of ceftriaxone and Flagyl through 12/23 2. Respiratory PCR for viruses not done yet, reordered 3. Continue supportive care * Bev Adames MD - 12/08/2022 11:00 AM CDT DAILY PROGRESS NOTE C/C:SOB Interval History: No new events SUBJECTIVE: Complaints: No more SOB today. No CP,no cough ROS: No fever,chills. No nausea,vomiting,abdominal pain,diarrhea. No headache,dizziness. OBJECTIVE: Vitals: Temp (24hrs), Av.8 ??C (98.2 ??F), Min:36.7 ??C (98 ??F), Max:36.9 ??C (98.4 ??F) Vitals: 12/07/22 2053 12/08/22 0007 12/08/22 0433 12/08/22 0815 BP: 141/62 133/69 128/66 BP Location: Right arm Right arm Right arm Patient Position: Lying Lying Lying Pulse: 73 69 75 68 Resp: Temp: 36.8 ??C (98.3 ??F) 36.7 ??C (98 ??F) 36.7 ??C (98.1 ??F) TempSrc: Oral Oral Oral SpO2: 92% 94% 92% Weight: Height: LDA: PICC Single Lumen 11/11/22 Non-tunneled Power Left Brachial;Upper arm (Active) Placement Date/Time: 11/11/22 1310 Placed by External Staff?: Other hospital Catheter Time Out Checklist Completed: Yes Hand Hygiene Performed: Yes Site Prep: Chlorhexidine Site Prep Agent has Completely Dried Before Insertion: Yes All 5 Steril... Number of days: 25 External Urinary Catheter (Active) Placement Date/Time: 12/06/22 1700 Inserted by: SWATI LAY External Catheter Type: Female External Urinary Catheter Sizes: Female- One size Number of days: 0 I/O: Intake/Output Summary (Last 24 hours) at 12/08/2022 1100 Last data filed at 12/08/2022 0950 Gross per 24 hour Intake 1362 ml Output 850 ml Net 512 ml Physical Exam General:Lying in bed,awake,alert,on RA,NAD SHEENT:Skin warm,dry,no rashes. No icterus,no cyanosis,no pallor,EOMI. Neck:Supple Respi:Slightly diminished breath sounds silverio, Cardio:RRR,no murmur GI:Abdomen obese,soft,bowel sounds +,non tender,not distended. Extre:1-2+ edema legs+R>L, no cyanosis,no pallor Neuro:Non focal.Resting Tremors of hands+ Psych:Mood/Affect normal.Behavior normal. Laboratory: Recent Results (from the past 24 hour(s)) POCT glucose Collection Time: 12/07/22 12:21 PM Result Value Ref Range Glucose, POC 166 70 - 199 mg/dL POCT glucose Collection Time: 12/07/22 5:25 PM Result Value Ref Range Glucose, POC 205 (H) 70 - 199 mg/dL POCT glucose Collection Time: 12/07/22 8:52 PM Result Value Ref Range Glucose, POC 165 70 - 199 mg/dL Urinalysis reflex to microscopic Collection Time: 12/07/22 9:08 PM Result Value Ref Range Color, ur Yellow Yellow Clarity, ur Cloudy (A) Clear Specific gravity, ur 1.012 1.003 - 1.030 pH, urine 5.0 Protein, ur ql 2+ (A) Negative Glucose, ur ql Negative Negative Ketones, ur Negative Negative Bilirubin, ur Negative Negative Blood, ur Negative Negative Urobilinogen, ur <2.0 <2.0 mg/dL Nitrite, ur Negative Negative Leukocyte esterase, ur 4+ (A) Negative UA reflex comment Reflex to microscopic UA will be performed. Protein / creatinine ratio, urine, random Collection Time: 12/07/22 9:08 PM Result Value Ref Range Protein, ur, quant 184.1 mg/dL Creatinine Ur 75.7 mg/dL Protein/creatinine ratio 2,432.0 (H) 0.0 - 180.0 mg/g CR Urinalysis, microscopic only Collection Time: 12/07/22 9:08 PM Result Value Ref Range WBC, ur >50 (A) 0 - 5 /HPF RBC, ur 3-5 (A) 0 - 2 /HPF Epithelial cells, squamous, ur 1-5 0 - 5 /HPF Hyaline casts, ur 1-5 0 - 10 /LPF POCT glucose Collection Time: 12/08/22 2:28 AM Result Value Ref Range Glucose, POC 145 70 - 199 mg/dL POCT glucose Collection Time: 12/08/22 7:35 AM Result Value Ref Range Glucose, POC 127 70 - 199 mg/dL CBC with auto differential Collection Time: 12/08/22 8:01 AM Result Value Ref Range WBC 8.0 3.8 - 9.9 K/cumm Hgb 7.2 (L) 11.9 - 15.5 g/dL Hct 23.2 (L) 35.6 - 45.5 % Plt 294 150 - 400 K/cumm MPV 11.3 9.1 - 12.3 fL RBC 2.41 (L) 3.90 - 5.20 M/cumm MCV 96.3 81.3 - 96.4 fL MCH 29.9 27.1 - 33.3 pg MCHC 31.0 (L) 32.3 - 35.7 g/dL RDW CV 16.1 (H) 11.1 - 14.9 % RDW SD 56.7 (H) 35.7 - 48.1 fL NRBC abs 0.02 (H) 0.00 - 0.01 K/cumm Renal function panel Collection Time: 12/08/22 8:01 AM Result Value Ref Range Sodium 141 135 - 145 mmol/L Potassium, pl 4.6 3.3 - 4.9 mmol/L Chloride 109 97 - 110 mmol/L CO2 20 (L) 22 - 32 mmol/L Anion gap 12 2 - 15 mmol/L BUN 67 (H) 8 - 25 mg/dL Creatinine 2.58 (H) 0.60 - 1.10 mg/dL Glucose 119 70 - 199 mg/dL Calcium 9.2 8.5 - 10.3 mg/dL Phosphorus, pl 5.5 (H) 2.3 - 4.5 mg/dL Albumin 2.9 (L) 3.5 - 5.0 g/dL Magnesium Collection Time: 12/08/22 8:01 AM Result Value Ref Range Magnesium 2.4 1.4 - 2.5 mg/dL Differential, auto Collection Time: 12/08/22 8:01 AM Result Value Ref Range Neutrophil abs 4.5 1.7 - 6.5 K/cumm Imm gran abs 0.0 0.0 - 0.1 K/cumm Lymphocyte abs 2.3 0.8 - 3.3 K/cumm Monocyte abs 0.8 0.2 - 0.8 K/cumm Eosinophil abs 0.2 0.0 - 0.5 K/cumm Basophil abs 0.0 0.0 - 0.1 K/cumm Neutrophil pct 56.6 % Imm gran pct 0.4 % Lymphocyte pct 29.1 % Monocyte pct 10.4 % Eosinophil pct 3.0 % Basophil pct 0.5 % eGFR Collection Time: 12/08/22 8:01 AM Result Value Ref Range eGFR 19 mL/min/1.73 m2 Radiology: Scheduled Medications: amLODIPine, 10 mg, oral, Nightly atorvastatin, 20 mg, oral, Nightly benztropine, 1.5 mg, oral, Nightly carvediloL, 12.5 mg, oral, BID with meals (bkfst, dinner) cefepime, 2,000 mg, intravenous, Q24H SOL doxycycline hyclate, 100 mg, oral, BID - special famotidine, 10 mg, oral, Daily ferric gluconate, 125 mg of elemental iron, intravenous, Once per day on Thu ferrous sulfate, 65 mg of elemental iron, oral, Daily with breakfast furosemide, 40 mg, intravenous, Q12H SOL heparin, 5,000 Units, subcutaneous, Q8H SOL insulin glargine, 15 Units, subcutaneous, Nightly insulin lispro, 0-4 Units, subcutaneous, Nightly insulin lispro, 0-5 Units, subcutaneous, TID with meals insulin lispro, 7 Units, subcutaneous, TID with meals pregabalin, 75 mg, oral, Nightly risperiDONE, 2 mg, oral, Nightly Current Facility-Administered Medications: albuterol HFA (PROVENTIL HFA,VENTOLIN HFA,PROAIR HFA) 90 mcg/actuation inhaler 2 puff, 2 puff, inhalation, Q4H PRN (RT), Robert Hernandez MD amLODIPine (NORVASC) tablet 10 mg, 10 mg, oral, Nightly, Robert Hernandez MD, 10 mg at 12/07/222052 atorvastatin (LIPITOR) tablet 20 mg, 20 mg, oral, Nightly, Robert Hernandez MD, 20 mg at 12/07/222052 benztropine (COGENTIN) tablet 1.5 mg, 1.5 mg, oral, Nightly, Robert Hernandez MD, 1.5 mg at12/07/222052 carvediloL (COREG) tablet 12.5 mg, 12.5 mg, oral, BID with meals (bkfst, dinner), Drew Hernandez MD, 12.5 mg at 12/08/22947 cefepime (MAXIPIME) 2,000 mg in sodium chloride 0.9% 100 mL IVPB, 2,000 mg, intravenous, Q24H SOL, En Chaudhary MD, Last Rate: 200 mL/hr at 12/08/22 0947, 2,000 mg at 12/08/22 0947 dextrose oral liquid liquid 15 g, 15 g, oral, Q15 Min PRN OR dextrose (D10W) 10% bolus 250 mL, 250 mL, intravenous, Q15 Min PRN, Robert Hernandez MD doxycycline monohydrate (MONODOX) capsule 100 mg, 100 mg, oral, BID - special, Robert Hernandez MD, 100 mg at 12/08/22 0541 famotidine (PEPCID) tablet 10 mg, 10 mg, oral, Daily, Robert Hernandez MD, 10 mg at 12/08/22947 ferric gluconate (FERRLECIT) 125 mg of elemental iron in sodium chloride 0.9% 100 mL IVPB, 125 mg of elemental iron, intravenous, Once per day on Thu, Jimbo Strauss MD ferrous sulfate delayed release tablet 65 mg of elemental iron, 65 mg of elemental iron, oral, Daily with breakfast, Darlyn Guzman MD, 65 mg of elemental iron at 12/08/2248 furosemide (LASIX) 10 mg/mL injection 40 mg, 40 mg, intravenous, Q12H SOL, Robert Hernandez MD, 40 mg at 12/08/2248 glucagon injection 1 mg, 1 mg, intramuscular, Q30 Min PRN, Robert Hernandez MD heparin 5,000 unit/mL injection 5,000 Units, 5,000 Units, subcutaneous, Q8H SOL, Robert Hernandez MD, 5,000 Units at 12/08/22 0541 insulin glargine (LANTUS, SEMGLEE) 100 unit/mL injection 15 Units, 15 Units, subcutaneous, Nightly,Robert Hernandez MD, 15 Units at 12/07/222051 insulin lispro (HumaLOG, ADMELOG) 100 unit/mL injection 0-4 Units, 0-4 Units, subcutaneous, Nightly, Robert Hernandez MD insulin lispro (HumaLOG, ADMELOG) 100 unit/mL injection 0-5 Units, 0-5 Units, subcutaneous, TID with meals, Robert Hernandez MD, 2 Units at 12/07/221802 insulin lispro (HumaLOG, ADMELOG) 100 unit/mL injection 7 Units, 7 Units, subcutaneous, TID with meals, Robert Hernandez MD, 7 Units at 12/08/22946 polyethylene glycol (MIRALAX) packet 17 g, 17 g, oral, Daily PRN, Robert Hernandez MD pregabalin (LYRICA) capsule 75 mg, 75 mg, oral, Nightly, Robert Hernandez MD, 75 mg at 12/07/222052 risperiDONE (RisperDAL) tablet 2 mg, 2 mg, oral, Nightly, Robert Hernandez MD, 2 mg at 12/07/222052 Continuous Medications: PRN Medications: albuterol HFA dextrose OR dextrose glucagon polyethylene glycol Hospital course: 72 y.o Obese AAF pt with history of CHF, CKD, osteomyelitis, diabetes, schizophrenia, movement disorder, dementia, hyperlipidemia, hypertension presented to ED with a C/C of SOB. ASSESSMENT/PLAN: All diagnoses are present on admission unless otherwise stated. Principal Problem: -- Acute on chronic diastolic CHF: Troponins 35,33,32 -flat elevation. Continue IV Lasix. Consulted Cardiology Telemetry Improving. Active Problems: --BRENDA on CKD4:Trend GFR with diuresis. Consulted Nephrology Cozaar on hold Still with rising Cr. Will watch closely, avoid nephrotoxins,and hypotension. --Hyperkalemia: Sec to # 2.Resolved -- Right 1st toe osteomyelitis: The patient refused surgery. The power of senior attorney is less certain.The plan was for three weeks of antibiotics and reassess. The POA requested 2nd opinion with our Infectious Disease doctor and Podiatry. 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 Switched doxycycline to Vancomycin and Flagyl. Podiatry recommended conservative wound care per Wound nurse . Podiatry signed off. -- Bibasilar consolidations: Suspect his atelectasis due to pleural effusions. Low suspicion for pneumonia. 12/07 Repeat chest x-ray showed tiny right effusion. -- DM-2:Continue Lantus, humalog q ac. SSI. BS 110-140 --Schizophrenia with movement disorder: Movement disorder thought to be due to antipsychotic therapy. Continue Risperdal for schizophrenia continue Cogentin for the movement disorder. --Dementia: Patient's daughter is her power of senior attorney --Normocytic anemia: POA. Hgb trending down. No signs of overt bleeding. Will monitor Hgb trend closely and Tx with PRBC prn My total encounter time on 12/08/2022 was 45 minutes which was spent in the activities documented inthe note. This includes time spent prior to the visit and after the visit in direct care of the patient. This time does not include time spent in any separately reportable services. DVT Prophylaxis with SQ Heparin Code status: Full code D/W RN Medical Decision Making complexity: Moderate Discharge disposition: Bev Adames MD 12/08/2022 11:00 AM * William Velasquez MD - 12/08/2022 8:07 AM CDT Daily Progress [facility] Cardiology OBJECTIVE: Past Medical History: Diagnosis Date Arthritis CHF (congestive heart failure) (CMS/HCC) (HCC) Dementia (HCC) Depression Diabetic neuropathy (HCC) Hyperlipidemia Hypertension Movement disorder Osteomyelitis (HCC) Renal disorder Schizophrenia (HCC) Type 2 diabetes mellitus (HCC) Family History Problem Relation Age of Onset Stomach cancer Father Scheduled Medications Medication Dose Route Frequency amLODIPine (NORVASC) tablet 10 mg 10 mg oral Nightly atorvastatin (LIPITOR) tablet 20 mg 20 mg oral Nightly benztropine (COGENTIN) tablet 1.5 mg 1.5 mg oral Nightly carvediloL (COREG) tablet 12.5 mg 12.5 mg oral BID with meals (bkfst, dinner) cefepime (MAXIPIME) 2,000 mg in sodium chloride 0.9% 100 mL IVPB 2,000 mg intravenous Q24H [facility] doxycycline monohydrate (MONODOX) capsule 100 mg 100 mg oral BID - special famotidine (PEPCID) tablet 10 mg 10 mg oral Daily ferric gluconate (FERRLECIT) 125 mg of elemental iron in sodium chloride 0.9% 100 mL IVPB 125 mg ofelemental iron intravenous Once per day on Thu ferrous sulfate delayed release tablet 65 mg of elemental iron 65 mg of elemental iron oral Daily with breakfast furosemide (LASIX) 10 mg/mL injection 40 mg 40 mg intravenous Q12H [facility] heparin 5,000 unit/mL injection 5,000 Units 5,000 Units subcutaneous Q8H [facility] insulin glargine (LANTUS, SEMGLEE) 100 unit/mL injection 15 Units 15 Units subcutaneous Nightly insulin lispro (HumaLOG, ADMELOG) 100 unit/mL injection 0-4 Units 0-4 Units subcutaneous Nightly insulin lispro (HumaLOG, ADMELOG) 100 unit/mL injection 0-5 Units 0-5 Units subcutaneous TID with meals insulin lispro (HumaLOG, ADMELOG) 100 unit/mL injection 7 Units 7 Units subcutaneous TID with meals pregabalin (LYRICA) capsule 75 mg 75 mg oral Nightly risperiDONE (RisperDAL) tablet 2 mg 2 mg oral Nightly Recent Labs Lab Units 12/06/22 1451 12/05/22 0735 12/04/22 0623 12/03/22 1252 12/02/22 0545 WBC K/cumm 8.6 7.5 8.6 8.2 7.2 HEMOGLOBIN g/dL 7.7* 7.6* 7.2* 8.4* 7.3* HEMATOCRIT % 25.2* 24.2* 22.5* 25.8* 23.7* PLATELETS K/cumm 288 280 267 289 252 Recent Labs Lab Units 12/08/22 0735 12/08/22 0228 12/07/22 2052 12/07/22 1725 12/07/22 1221 12/06/22 1452 12/06/22 1451 12/05/22 1159 12/05/22 0735 12/04/22 0724 12/04/22 0623 12/03/22 1615 12/03/22 1252 12/02/22 0752 12/02/22 0545 12/01/22 1146 12/01/22 0909 SODIUM mmol/L -- -- -- -- -- -- 137 -- 142 -- 140 -- 138 -- 142 -- 138 POTASSIUM PLASMA mmol/L -- -- -- -- -- -- 5.1* -- 4.5 -- 4.7 -- 4.6 -- 4.9 -- 5.0* CHLORIDE mmol/L -- -- -- -- -- -- 106 -- 111* -- 109 -- 105 -- 110 -- 105 CO2 mmol/L -- -- -- -- -- -- 20* -- 23 -- 22 -- 21* -- 22 -- 22 ANIONGAP mmol/L -- -- -- -- -- -- 11 -- 8 -- 9 -- 12 -- 10 -- 11 GLUCOSE mg/dL -- -- -- -- -- -- 206* -- 140 -- 189 -- 155 -- 108 -- 158 POC GLUCOSE MONITOR mg/dL 127 145 165 205* 166 < > -- < > -- < > -- < > -- < > -- < > -- BUN SERUM mg/dL -- -- -- -- -- -- 51* -- 51* -- 55* -- 52* -- 52* -- 46* CREATININE mg/dL -- -- -- -- -- -- 2.37* -- 2.30* -- 2.50* -- 2.80* -- 2.90* -- 2.70* CALCIUM mg/dL -- -- -- -- -- -- 9.2 -- 8.9 -- 8.7 -- 9.0 -- 9.0 -- 9.0 ALBUMIN g/dL -- -- -- -- -- -- 3.2* -- -- -- 2.9* -- 3.1* -- 3.0* -- 3.3* ALK PHOS Units/L -- -- -- -- -- -- 100 -- -- -- 107 -- 135* -- 87 -- 94 ALT Units/L -- -- -- -- -- -- 10 -- -- -- 7 -- 9 -- 8 -- 8 AST Units/L -- -- -- -- -- -- 14 -- -- -- 10 -- 13 -- 12 -- 13 BILIRUBIN TOTAL mg/dL -- -- -- -- -- -- <0.2 -- -- -- <0.2 -- <0.2 -- <0.2 -- 0.3 < > = values in this interval not displayed. Intake/Output Summary (Last 24 hours) at 12/08/2022 0807 Last data filed at 12/08/2022 0600 Gross per 24 hour Intake 1122 ml Output 850 ml Net 272 ml Vitals: 12/07/22201312/07/22205212/08/22 0007 12/08/22 0433 BP: 139/56 141/62 133/69 BP Location: Right arm Right arm Right arm Patient Position: Lying Lying Lying Pulse: 74 73 69 75 Resp: 18 Temp: 36.8 ??C (98.3 ??F) 36.8 ??C (98.3 ??F) 36.7 ??C (98 ??F) TempSrc: Oral Oral Oral SpO2: 93% 92% 94% Weight: Height: ASSESSMENT/PLAN: Patient Active Problem List Diagnosis Schizoaffective disorder, bipolar type (CMS/HCC) ([facility]) Diabetic neuropathy (HCC) Type 2 diabetes mellitus with diabetic neuropathy, with long-term current use of insulin ([facility]/HCC) ([facility]) Hypertension associated with diabetes (HCC) Amputation of toe of right foot ([facility]/HCC) ([facility]) Iron deficiency anemia Gastroesophageal reflux disease Hyperlipidemia associated with type 2 diabetes mellitus (HCC) Dementia ([facility]) Schizoaffective disorder, bipolar type ([facility]/HCC) ([facility]) 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 2 diabetes mellitus ([facility]/HCC) ([facility]) Encounter for Medicare annual wellness exam Late onset Alzheimer's dementia without behavioral disturbance ([facility]) Volume overload Anemia Toe necrosis ([facility]/HCC) ([facility]) Physical deconditioning Left leg DVT ([facility]) ([facility]) Pulmonary nodule Retention of urine, unspecified Unspecified osteoarthritis, unspecified site Unsteadiness on feet Weakness Parkinsonism ([facility]) Wheezing Anemia in stage 4 chronic kidney disease ([facility]) Osteomyelitis of great toe of right foot (CMS/HCC) ([facility]) Abnormal urinalysis Cellulitis of great toe of right foot BRENDA (acute kidney injury) ([facility]/HCC) ([facility]) Acute on chronic diastolic congestive heart failure ([facility]/HCC) ([facility]) Bibasilar consolidations Movement disorder S no new cardiac complaints breathing is improving creatinine appears to be stable no labs since 12/06 as of this morning Exam: Gen: Comfortable, NAD CVS: RRR, S1, S2 present, GI: Soft Non tender Chest: CTAB Psych: Appropriate mood and affect Neuro: Alert, oriented, No deficits. Assessment plan: Volume overload contributing to edema due to CKD - with acute on chronic kidney disease - managed by Nephrology Acute on chronic diastolic heart failure - normal LV function nonischemic MPI recently - elevated troponin due to renal dysfunction does not represent ACS Essential hypertension well controlled Diabetes mellitus type 2 Right great toe ulcer with osteomyelitis - on antibiotic therapy as per Infectious Disease - normal TEO and TBI William Velasquez MD, FACC, FSCAI, RPVI [facility] [phone] 12/08/2022 8:07 AM * Bev Adames MD - 12/07/2022 12:03 PM CDT DAILY PROGRESS NOTE C/C:SOB Interval History: No new events SUBJECTIVE: Complaints: Little SOB+.Better than yesterday ROS: No fever,chills. No cough,chest pain No nausea,vomiting,abdominal pain,diarrhea. No headache,dizziness. OBJECTIVE: Vitals: Temp (24hrs), Av.6 ??C (97.9 ??F), Min:36.2 ??C (97.2 ??F), Max:37 ??C (98.6 ??F) Vitals: 12/07/22 0000 12/07/22 0400 12/07/22 0827 12/07/22 1146 BP: 126/76 123/72 119/74 141/66 BP Location: Right arm Right arm Right arm Right arm Patient Position: Lying Lying Lying Lying Pulse: 90 69 75 70 Resp: Temp: 37 ??C (98.6 ??F) 36.4 ??C (97.6 ??F) 36.8 ??C (98.3 ??F) 36.7 ??C (98.1 ??F) TempSrc: Axillary Axillary Oral Oral SpO2: 90% 92% 92% 98% Weight: Height: LDA: PICC Single Lumen 11/11/22 Non-tunneled Power Left Brachial;Upper arm (Active) Placement Date/Time: 11/11/22 1310 Placed by External Staff?: Other hospital Catheter Time Out Checklist Completed: Yes Hand Hygiene Performed: Yes Site Prep: Chlorhexidine Site Prep Agent has Completely Dried Before Insertion: Yes All 5 Steril... Number of days: 25 External Urinary Catheter (Active) Placement Date/Time: 12/06/22 1700 Inserted by: SWATI LAY External Catheter Type: Female External Urinary Catheter Sizes: Female- One size Number of days: 0 I/O: Intake/Output Summary (Last 24 hours) at 12/07/2022 1203 Last data filed at 12/07/2022 1001 Gross per 24 hour Intake 0 ml Output 0 ml Net 0 ml Physical Exam General: Up in bed,awake,alert,on RA, eating lunch,NAD SHEENT:Skin warm,dry,no rashes. No icterus,no cyanosis,no pallor,EOMI. Neck:Supple Respi:Slightly diminished breath sounds silverio, Cardio:RRR,no murmur GI:Abdomen obese,soft,bowel sounds +,non tender,not distended. Extre:2+ edema legs+, no cyanosis,no pallor Neuro:Non focal. Psych:Mood/Affect normal.Behavior normal. Laboratory: Recent Results (from the past 24 hour(s)) CBC with auto differential Collection Time: 12/06/22 2:51 PM Result Value Ref Range WBC 8.6 3.8 - 9.9 K/cumm Hgb 7.7 (L) 11.9 - 15.5 g/dL Hct 25.2 (L) 35.6 - 45.5 % Plt 288 150 - 400 K/cumm MPV 11.0 9.1 - 12.3 fL RBC 2.62 (L) 3.90 - 5.20 M/cumm MCV 96.2 81.3 - 96.4 fL MCH 29.4 27.1 - 33.3 pg MCHC 30.6 (L) 32.3 - 35.7 g/dL RDW CV 15.8 (H) 11.1 - 14.9 % RDW SD 54.5 (H) 35.7 - 48.1 fL NRBC abs 0.00 0.00 - 0.01 K/cumm Pro B-type natriuretic peptide Collection Time: 12/06/22 2:51 PM Result Value Ref Range NT-proBNP 633 (H) <=300 pg/mL Comprehensive metabolic panel Collection Time: 12/06/22 2:51 PM Result Value Ref Range Sodium 137 135 - 145 mmol/L Potassium, pl 5.1 (H) 3.3 - 4.9 mmol/L Chloride 106 97 - 110 mmol/L CO2 20 (L) 22 - 32 mmol/L Anion gap 11 2 - 15 mmol/L BUN 51 (H) 8 - 25 mg/dL Creatinine 2.37 (H) 0.60 - 1.10 mg/dL Glucose 206 (H) 70 - 199 mg/dL Calcium 9.2 8.5 - 10.3 mg/dL Bilirubin, total <0.2 0.1 - 1.2 mg/dL Protein, pl 7.6 6.5 - 8.5 g/dL Albumin 3.2 (L) 3.5 - 5.0 g/dL Alk phos 100 40 - 130 Units/L ALT 10 7 - 45 Units/L AST 14 10 - 45 Units/L Troponin T high-sensitivity series (baseline, 2hr, 4hr, 6hr) Collection Time: 12/06/22 2:51 PM Result Value Ref Range Trop T hs 35 (H) <=14 ng/L Differential, auto Collection Time: 12/06/22 2:51 PM Result Value Ref Range Neutrophil abs 5.9 1.7 - 6.5 K/cumm Imm gran abs 0.0 0.0 - 0.1 K/cumm Lymphocyte abs 1.8 0.8 - 3.3 K/cumm Monocyte abs 0.7 0.2 - 0.8 K/cumm Eosinophil abs 0.2 0.0 - 0.5 K/cumm Basophil abs 0.0 0.0 - 0.1 K/cumm Neutrophil pct 68.7 % Imm gran pct 0.5 % Lymphocyte pct 20.5 % Monocyte pct 7.8 % Eosinophil pct 2.0 % Basophil pct 0.5 % eGFR Collection Time: 12/06/22 2:51 PM Result Value Ref Range eGFR 21 mL/min/1.73 m2 POCT glucose Collection Time: 12/06/22 2:52 PM Result Value Ref Range Glucose, POC 222 (H) 70 - 199 mg/dL Troponin T high-sensitivity 2-hour Collection Time: 12/06/22 4:29 PM Result Value Ref Range Trop T hs 33 (H) <=14 ng/L Trop T hs delta -2 ng/L Trop T hs interp Insignificant POCT glucose Collection Time: 12/06/22 8:07 PM Result Value Ref Range Glucose, POC 189 70 - 199 mg/dL Troponin T high-sensitivity Collection Time: 12/07/22 12:24 AM Result Value Ref Range Trop T hs 32 (H) <=14 ng/L POCT glucose Collection Time: 12/07/22 8:25 AM Result Value Ref Range Glucose, POC 166 70 - 199 mg/dL Radiology: Scheduled Medications: amLODIPine, 10 mg, oral, Nightly atorvastatin, 20 mg, oral, Nightly benztropine, 1.5 mg, oral, Nightly carvediloL, 12.5 mg, oral, BID with meals (bkfst, dinner) cefTRIAXone, 2,000 mg, intravenous, Q24H SOL doxycycline hyclate, 100 mg, oral, BID - special famotidine, 10 mg, oral, Daily [START ON 12/08/2022] ferric gluconate, 125 mg of elemental iron, intravenous, Once per day on Thu ferrous sulfate, 65 mg of elemental iron, oral, Daily with breakfast furosemide, 40 mg, intravenous, Q12H SOL heparin, 5,000 Units, subcutaneous, Q8H SOL insulin glargine, 15 Units, subcutaneous, Nightly insulin lispro, 0-4 Units, subcutaneous, Nightly insulin lispro, 0-5 Units, subcutaneous, TID with meals insulin lispro, 7 Units, subcutaneous, TID with meals pregabalin, 75 mg, oral, Nightly risperiDONE, 2 mg, oral, Nightly Current Facility-Administered Medications: albuterol HFA (PROVENTIL HFA,VENTOLIN HFA,PROAIR HFA) 90 mcg/actuation inhaler 2 puff, 2 puff, inhalation, Q4H PRN (RT), Robert Hernandez MD amLODIPine (NORVASC) tablet 10 mg, 10 mg, oral, Nightly, Robert Hernandez MD, 10 mg at 12/06/222003 atorvastatin (LIPITOR) tablet 20 mg, 20 mg, oral, Nightly, Robert Hernandez MD benztropine (COGENTIN) tablet 1.5 mg, 1.5 mg, oral, Nightly, Robert Hernandez MD carvediloL (COREG) tablet 12.5 mg, 12.5 mg, oral, BID with meals (bkfst, dinner), Drew Hernandez MD, 12.5 mg at 12/07/22 0846 cefTRIAXone (ROCEPHIN) 2,000 mg/20 mL in sterile water (premix) 2,000 mg, 2,000 mg, intravenous, Q24H [facility], Robert Hernandez MD, 2,000 mg at 12/07/22 1035 dextrose oral liquid liquid 15 g, 15 g, oral, Q15 Min PRN OR dextrose (D10W) 10% bolus 250 mL, 250 mL, intravenous, Q15 Min PRN, Robert Hernandez MD doxycycline monohydrate (MONODOX) capsule 100 mg, 100 mg, oral, BID - special, Robert Hernandez MD, 100 mg at 12/07/22 0528 famotidine (PEPCID) tablet 10 mg, 10 mg, oral, Daily, Robert Hernandez MD, 10 mg at 12/07/22 0847 [START ON 12/08/2022] ferric gluconate (FERRLECIT) 125 mg of elemental iron in sodium chloride 0.9% 100 mL IVPB, 125 mg of elemental iron, intravenous, Once per day on Thu, Jimbo Strauss MD ferrous sulfate delayed release tablet 65 mg of elemental iron, 65 mg of elemental iron, oral, Daily with breakfast, Darlyn uGzman MD, 65 mg of elemental iron at 12/07/22 0847 furosemide (LASIX) 10 mg/mL injection 40 mg, 40 mg, intravenous, Q12H SOL, Robert Hernandez MD, 40 mg at 12/07/22 0847 glucagon injection 1 mg, 1 mg, intramuscular, Q30 Min PRN, Robert Hernandez MD heparin 5,000 unit/mL injection 5,000 Units, 5,000 Units, subcutaneous, Q8H SOL, Robert Hernandez MD, 5,000 Units at 12/07/22 0528 insulin glargine (LANTUS, SEMGLEE) 100 unit/mL injection 15 Units, 15 Units, subcutaneous, Nightly,Robert Hernandez MD, 15 Units at 12/07/22 0115 insulin lispro (HumaLOG, ADMELOG) 100 unit/mL injection 0-4 Units, 0-4 Units, subcutaneous, Nightly, Robert Hernandez MD insulin lispro (HumaLOG, ADMELOG) 100 unit/mL injection 0-5 Units, 0-5 Units, subcutaneous, TID with meals, Robert Hernandez MD, 1 Units at 12/07/22 0848 insulin lispro (HumaLOG, ADMELOG) 100 unit/mL injection 7 Units, 7 Units, subcutaneous, TID with meals, Robert Hernandez MD, 7 Units at 12/07/22 0850 polyethylene glycol (MIRALAX) packet 17 g, 17 g, oral, Daily PRN, Robert Hernandez MD pregabalin (LYRICA) capsule 75 mg, 75 mg, oral, Nightly, Robert Hernandez MD, 75 mg at 12/06/222003 risperiDONE (RisperDAL) tablet 2 mg, 2 mg, oral, Nightly, Robert Hernandez MD Continuous Medications: PRN Medications: albuterol HFA dextrose OR dextrose glucagon polyethylene glycol Hospital course: 72 y.o Obese AAF pt with history of CHF, CKD, osteomyelitis, diabetes, schizophrenia, movement disorder, dementia, hyperlipidemia, hypertension presented to ED with a C/C of SOB. ASSESSMENT/PLAN: All diagnoses are present on admission unless otherwise stated. Principal Problem: -- Acute on chronic diastolic CHF: Troponins 35,33,32 -flat elevation. Continue IV Lasix. Consulted Cardiology Serial bladder scans Telemetry Active Problems: --BRENDA on CKD4:Trend GFR with diuresis. Consulted Nephrology Cozaar on hold --Hyperkalemia: Sec to # 2. -- Right 1st toe osteomyelitis: The patient refused surgery. The power of senior attorney is less certain.The plan was for three weeks of antibiotics and reassess. The POA requested 2nd opinion with our Infectious Disease doctor and Podiatry. 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 Switched ceftriaxone to Cefepime. -- Bibasilar consolidations: Suspect his atelectasis due to pleural effusions. Low suspicion for pneumonia. 12/07 Repeat chest x-ray showed tiny right effusion. -- DM-2:Continue Lantus, humalog q ac. SSI. BS 160-180 --Schizophrenia with movement disorder: Movement disorder thought to be due to antipsychotic therapy. Continue Risperdal for schizophrenia and continue Cogentin for the movement disorder. --Dementia: Patient's daughter is her power of senior attorney My total encounter time on 12/07/2022 was 42 minutes which was spent in the activities documented inthe note. This includes time spent prior to the visit and after the visit in direct care of the patient. This time does not include time spent in any separately reportable services. DVT Prophylaxis with SQ Heparin Code status: Full code D/W RN Medical Decision Making complexity: Moderate Discharge disposition: Bev Adames MD 12/07/2022 12:03 PM documented in this encounter H&P Notes * Robert Hernandez MD - 12/06/2022 8:00 PM CDT General Medicine History and Physical DATE OF SERVICE: 12/06/22 PRIMARY CARE PHYSICIAN: Dr. Cherelle Corcoran SUBJECTIVE: Patient is a 72 y.o. female with a chief complaint of SOB. HPI: 72 y.o. female with history of CHF, CKD, osteomyelitis, diabetes, schizophrenia, movement disorder,dementia, hyperlipidemia, hypertension. Patient was [facility] yesterday. She was there withright 1st toe osteomyelitis. Her diuretics were held her when creatinine went up. She was being seen by Infectious Disease and Nephrology. She was discharged on 12/05/2022. Per daughter she has been having some SOB and wheezing. No chest pain that the daughter knows of. She thinks it's due to the fluid. No fevers. No vomiting or diarrhea. No urinary problems. The patient has underlying dementia but is not entirely sure why she is here. She states that she is here for toe pain. She notes a dry cough but denies any fever, sneezing, shortness of breath, chest pain, chest pressure, chest discomfort. The patient has BRENDA on CKD4, stable anemia, hyperkalemia, stable troponin x2, stable CBC, CXR: BLT effusions and bibasilar consolidation. Echo in November: Diastolic dysfunction and high pulmonary wedge pressures. Mild TR. Inadequate to evaluate wall motion abnormalities EKbpm NSR. New low QRS. The ED has given the patient ceftriaxone, doxy, lasix. I reviewed the past on months of notes in Epic, Clinical Desktop, and Care Everywhere as well as the patient's last hospitalization to determine the patient's recent health activity. The patient appears to have been admitted to [facility] as per above. I reviewed the patient's vital signs, inpatient meds, outpatient meds, labs, imaging, orders, and EKG. Past Medical History: Diagnosis Date Arthritis CHF (congestive heart failure) ([facility]/HCC) (HCC) Dementia (HCC) Depression Diabetic neuropathy (HCC) Hyperlipidemia Hypertension Movement disorder Osteomyelitis (HCC) Renal disorder Schizophrenia (HCC) Type 2 diabetes mellitus (HCC) Past Surgical History: Procedure Laterality Date SECTION Right right foot TOE AMPUTATION Right 01/06/2020 4th toe amp/ foot debridement/ Dr. Anat Pelayo Medications Prior to Admission Medication Sig Dispense Refill Last Dose acetaminophen (TYLENOL) 325 mg tablet Take 2 tablets (650 mg total) by mouth every 6 (six) hours asneeded for pain Unknown albuterol HFA (ProAir HFA) 90 mcg/actuation inhaler Inhale 2 puffs every 4 (four) hours as needed for wheezing or shortness of breath 8.5 g 0 Unknown amino acids-protein hydr-fiber (Pro-Stat Renal Care) 15-100 gram-kcal/30 mL liquid Take 30 mL by mouth 2 (two) times a day Unknown amLODIPine (NORVASC) 10 mg tablet Take 1 tablet (10 mg total) by mouth nightly 30 tablet 1 12/05/2022 ascorbic acid 500 mg tablet,chewable Take 1 tablet/chew tab (500 mg total) by mouth 2 (two) times aday Unknown atorvastatin (LIPITOR) 20 mg tablet Take 1 tablet (20 mg total) by mouth nightly Unknown benztropine (COGENTIN) 1 mg tablet Take 1.5 tablets (1.5 mg total) by mouth nightly 45 tablet 0 Unknown bisacodyL (DULCOLAX) 10 mg suppository Insert 1 suppository (10 mg total) into the rectum daily as needed for constipation Unknown bisacodyL (FLEET-BISACODYL) 10 mg/30 mL enema Insert 30 mL (10 mg total) into the rectum daily as needed for constipation (if no results 24 hours after suppository) Unknown carvediloL (COREG) 12.5 mg tablet Take 1 tablet (12.5 mg total) by mouth 2 (two) times a day with meals 60 tablet 0 Unknown cefTRIAXone (ROCEPHIN) syringe Infuse 20 mL (2,000 mg total) into a venous catheter daily 840 mL 0 Unknown conner.stocking,thigh,reg,med misc Wear as much as possible 2 each 1 Unknown doxycycline monohydrate (MONODOX) 100 mg capsule Take 1 capsule (100 mg total) by mouth 2 (two) times a day 60 capsule 1 Unknown dulaglutide (TRULICITY) 1.5 mg/0.5 mL pen injector Inject 0.5 mL (1.5 mg total) under the skin oncea week on Mondays Unknown epoetin isaiah-epbx (RETACRIT) (10,000 unit/mL) solution Inject 1 mL (10,000 Units total) under the skin once a week Unknown famotidine (PEPCID) 10 mg tablet Take 1 tablet (10 mg total) by mouth daily Unknown ferrous sulfate 325 mg (65 mg of elemental iron) tablet Take 1 tablet (325 mg total) by mouth 2 (two) times a day 60 tablet 1 Unknown flash glucose scanning reader (FreeStyle Madhav [facility] [place]) [facility] [place] Use to continually monitor glucose 1 each 0 Unknown flash glucose sensor (FreeStyle Madhav 2 Sensor) kit Use to continually monitor glucose, change every 14 days 6 kit 3 Unknown furosemide (LASIX) 40 mg tablet Take 1 tablet (40 mg total) by mouth 2 (two) times a day 60 tablet 1 Unknown insulin glargine 100 unit/mL (3 mL) pen for injection Inject 25 Units under the skin nightly To start once blood sugars are consistently above 200 Unknown insulin lispro (HumaLOG, ADMELOG) 100 unit/mL pen [...] 12 units BG >400 = call MD Unknown insulin lispro (HumaLOG, ADMELOG) 100 unit/mL pen for injection Inject 7 Units under the skin 3 (three) times a day before meals plus sliding scale Unknown lidocaine (ASPERCREME) 4 % adhesive patch,medicated Place 1 patch on the skin daily to lower back Unknown magnesium citrate solution Take 296 mL by mouth daily as needed (for constipation if no results after enema) Unknown magnesium hydroxide (MILK OF MAGNESIA) suspension 400 mg/5 mL Take 30 mL by mouth nightly as needed(constipation if no bowel movement in 3 days) Unknown multivitamin with minerals tablet Take 1 tablet by mouth daily Unknown polyethylene glycol (MIRALAX) 17 gram packet Take 1 packet (17 g total) by mouth daily as needed for constipation Unknown pregabalin (LYRICA) 75 mg capsule Take 1 capsule (75 mg total) by mouth nightly 30 capsule 0 Unknown risperiDONE (RisperDAL) 2 mg tablet Take 1 tablet (2 mg total) by mouth nightly 30 tablet 0 Unknown Saccharomyces boulardii (FLORASTOR) 250 mg capsule Take 1 capsule (250 mg total) by mouth 2 (two) times a day while receiving antibiotic therapy Unknown No Known Allergies Social History Tobacco Use Smoking status: Never Smokeless tobacco: Never Substance and Sexual Activity Drug use: Never Sexual activity: Defer Alcohol Use: Not At Risk (12/06/2022) AUDIT-C Frequency of Alcohol Consumption: Never Average Number of Drinks: Patient does not drink Frequency of Binge Drinking: Never Family History Problem Relation Age of Onset Stomach cancer Father Prior to Admission medications Medication Sig Start Date End Date Taking? Authorizing Provider acetaminophen (TYLENOL) 325 mg tablet Take 2 tablets (650 mg total) by mouth every 6 (six) hours asneeded for pain Joe Ballard MD albuterol HFA (ProAir HFA) 90 mcg/actuation inhaler Inhale 2 puffs every 4 (four) hours as needed for wheezing or shortness of breath 11/13/22 12/13/22 Cristóbal Gould DO amino acids-protein hydr-fiber (Pro-Stat Renal Care) 15-100 gram-kcal/30 mL liquid Take 30 mL by mouth 2 (two) times a day Joe Ballard MD amLODIPine (NORVASC) 10 mg tablet Take 1 tablet (10 mg total) by mouth nightly 12/05/22 Jad Mead MD ascorbic acid 500 mg tablet,chewable Take 1 tablet/chew tab (500 mg total) by mouth 2 (two) times aday Joe Ballard MD atorvastatin (LIPITOR) 20 mg tablet Take 1 tablet (20 mg total) by mouth nightly Joe Ballard MD benztropine (COGENTIN) 1 mg tablet Take 1.5 tablets (1.5 mg total) by mouth nightly 11/13/22 12/13/22Cristóbal Gould DO bisacodyL (DULCOLAX) 10 mg suppository Insert 1 suppository (10 mg total) into the rectum daily as needed for constipation Joe Ballard MD bisacodyL (FLEET-BISACODYL) 10 mg/30 mL enema Insert 30 mL (10 mg total) into the rectum daily as needed for constipation (if no results 24 hours after suppository) Joe Ballard MD carvediloL (COREG) 12.5 mg tablet Take 1 tablet (12.5 mg total) by mouth 2 (two) times a day with meals 11/13/22 12/13/22 Cristóbal Gould DO cefTRIAXone (ROCEPHIN) syringe Infuse 20 mL (2,000 mg total) into a venous catheter daily 12/04/22 01/15/23 Vianney Ndiaye, JARAD prieto.stocking,thigh,reg,med misc Wear as much as possible 05/28/21 Cherelle Corcoran MD doxycycline monohydrate (MONODOX) 100 mg capsule Take 1 capsule (100 mg total) by mouth 2 (two) times a day 12/03/22 01/14/23 Vianney Ndiaye, JARAD dulaglutide (TRULICITY) 1.5 mg/0.5 mL pen injector Inject 0.5 mL (1.5 mg total) under the skin oncea week on Mondays Joe Ballard MD epoetin isaiah-epbx (RETACRIT) (10,000 unit/mL) solution Inject 1 mL (10,000 Units total) under the skin once a week 12/05/22 Jad Mead MD famotidine (PEPCID) 10 mg tablet Take 1 tablet (10 mg total) by mouth daily Joe Ballard MD ferrous sulfate 325 mg (65 mg of elemental iron) tablet Take 1 tablet (325 mg total) by mouth 2 (two) times a day 12/05/22 Jad Mead MD flash glucose scanning reader (FreeStyle Madhav [facility] [place]) [facility] [place] Use to continually monitor glucose 10/01/21 Anant Kauffman MD flash glucose sensor (FreeStyle Madhav 2 Sensor) kit Use to continually monitor glucose, change every 14 days 10/28/22 Anant Kauffman MD furosemide (LASIX) 40 mg tablet Take 1 tablet (40 mg total) by mouth 2 (two) times a day 12/05/22 Jad Mead MD insulin glargine 100 unit/mL (3 mL) pen for injection Inject 25 Units under the skin nightly To start once blood sugars are consistently above 200 12/05/22 Jad Mead MD insulin lispro (HumaLOG, ADMELOG) 100 unit/mL pen [...] 12 units BG >400 = call MD Joe Ballard MD insulin lispro (HumaLOG, ADMELOG) 100 unit/mL pen for injection Inject 7 Units under the skin 3 (three) times a day before meals plus sliding scale 12/05/22 Jad Mead MD lidocaine (ASPERCREME) 4 % adhesive patch,medicated Place 1 patch on the skin daily to lower back Joe Ballard MD magnesium citrate solution Take 296 mL by mouth daily as needed (for constipation if no results after enema) Joe Ballard MD magnesium hydroxide (MILK OF MAGNESIA) suspension 400 mg/5 mL Take 30 mL by mouth nightly as needed(constipation if no bowel movement in 3 days) Joe Ballard MD multivitamin with minerals tablet Take 1 tablet by mouth daily Joe Ballard MD polyethylene glycol (MIRALAX) 17 gram packet Take 1 packet (17 g total) by mouth daily as needed for constipation Joe Ballard MD pregabalin (LYRICA) 75 mg capsule Take 1 capsule (75 mg total) by mouth nightly 12/05/22 01/04/23 Jad Mead MD risperiDONE (RisperDAL) 2 mg tablet Take 1 tablet (2 mg total) by mouth nightly 11/13/22 12/13/22 Cristóbal Gould DO Saccharomyces boulardii (FLORASTOR) 250 mg capsule Take 1 capsule (250 mg total) by mouth 2 (two) times a day while receiving antibiotic therapy 11/14/22 12/13/22 Joe Ballard MD amLODIPine (NORVASC) 5 mg tablet Take 1 tablet (5 mg total) by mouth nightly 11/13/22 12/06/22 Cristóbal Gould DO furosemide (LASIX) 20 mg tablet Take 1 tablet (20 mg total) by mouth daily 11/29/22 12/06/22 Joe Ballard MD furosemide (LASIX) 40 mg tablet Take 1 tablet (40 mg total) by mouth daily as needed (Weight Gain >4lbs above dry weight.) 11/13/22 12/06/22 Cristóbal Gould DO losartan (COZAAR) 100 mg tablet Take 1 tablet (100 mg total) by mouth daily 11/14/22 12/06/22 Cristóbal Gould DO metroNIDAZOLE (FLAGYL) 500 mg tablet Take 1 tablet (500 mg total) by mouth 3 (three) times a day 11/13/22 12/06/22 Cristóbal Gould DO omeprazole (PriLOSEC) 20 mg capsule Take 1 capsule (20 mg total) by mouth daily 06/13/21 09/06/21 Cherelle Corcoran MD pregabalin (LYRICA) 150 mg capsule Take 1 capsule (150 mg total) by mouth nightly 11/13/22 12/06/22 Cristóbal Gould DO vancomycin IVBP Infuse 200 mL (1 g total) into a venous catheter every other day for cellulitis of right great toe 11/19/22 12/06/22 Joe Ballard MD Review of Systems Constitutional: Negative for fever. HENT: Negative for sneezing. Respiratory: Positive for cough. Negative for shortness of breath Cardiovascular: Negative for chest pain. Gastrointestinal: Negative for vomiting. Negative for diarrhea. Genitourinary: Negative for dysuria. Musculoskeletal: Negative for arthralgias. Skin: Negative for rash. Neurological: Negative for seizure. Psychiatric/Behavioral: Negative for agitation. OBJECTIVE: Vitals: Arrival Vitals Temp 12/06/22 1358 36.2 ??C (97.2 ??F) Pulse 12/06/22 1358 66 Resp 12/06/22 1358 18 BP 12/06/22 1358 139/63 SpO2 12/06/22 1358 98 % Temp src 12/06/22 1358 Tympanic Heart Rate Source 12/06/22 1830 Monitor Patient Position 12/06/22 1830 Lying BP Location 12/06/22 1830 Right arm FiO2 (%) -- Most Recent : Vitals: 12/06/22 1655 12/06/22 1700 12/06/22 1830 12/06/221999 BP: 142/56 142/53 138/66 BP Location: Right arm Right arm Patient Position: Lying Lying Pulse: 70 74 77 80 Resp: 18 18 18 Temp: 36.4 ??C (97.5 ??F) 36.8 ??C (98.2 ??F) TempSrc: Oral Oral SpO2: 97% 99% 97% 94% Weight: 78.9 kg (173 lb 15.1 oz) Height: 157.5 cm (5' 2.01 ) Physical exam: General appearance: appears stated age and cooperative Head: Normocephalic, without obvious abnormality, atraumatic Eyes: conjunctivae clear Neck: no JVD and supple, Throat: symmetrical, trachea midline Respiratory: clear to auscultation bilaterally and no rubs Cardiovascular: Regular rate and rhythm, S1, S2 normal, no murmur click, rub, or gallop Gastrointestinal: soft, non-tender; no masses, no organomegaly Extremities: Right 2+ land eft 1+ edema. Black right 1st toe. Dorsalis pedis and tibialis posteriorpulses dopplerable in both lower extremities. Muscoskeletal: bones normal, muscle with tone Skin: Skin color texture, turgor normal. No rashes or lesions Neurologic: Alert and oriented x4, non-focal Lab/Radiology/Diagnostic Review: Recent Results (from the past 24 hour(s)) CBC with auto differential Collection Time: 12/06/22 2:51 PM Result Value Ref Range WBC 8.6 3.8 - 9.9 K/cumm Hgb 7.7 (L) 11.9 - 15.5 g/dL Hct 25.2 (L) 35.6 - 45.5 % Plt 288 150 - 400 K/cumm MPV 11.0 9.1 - 12.3 fL RBC 2.62 (L) 3.90 - 5.20 M/cumm MCV 96.2 81.3 - 96.4 fL MCH 29.4 27.1 - 33.3 pg MCHC 30.6 (L) 32.3 - 35.7 g/dL RDW CV 15.8 (H) 11.1 - 14.9 % RDW SD 54.5 (H) 35.7 - 48.1 fL NRBC abs 0.00 0.00 - 0.01 K/cumm Pro B-type natriuretic peptide Collection Time: 12/06/22 2:51 PM Result Value Ref Range NT-proBNP 633 (H) <=300 pg/mL Comprehensive metabolic panel Collection Time: 12/06/22 2:51 PM Result Value Ref Range Sodium 137 135 - 145 mmol/L Potassium, pl 5.1 (H) 3.3 - 4.9 mmol/L Chloride 106 97 - 110 mmol/L CO2 20 (L) 22 - 32 mmol/L Anion gap 11 2 - 15 mmol/L BUN 51 (H) 8 - 25 mg/dL Creatinine 2.37 (H) 0.60 - 1.10 mg/dL Glucose 206 (H) 70 - 199 mg/dL Calcium 9.2 8.5 - 10.3 mg/dL Bilirubin, total <0.2 0.1 - 1.2 mg/dL Protein, pl 7.6 6.5 - 8.5 g/dL Albumin 3.2 (L) 3.5 - 5.0 g/dL Alk phos 100 40 - 130 Units/L ALT 10 7 - 45 Units/L AST 14 10 - 45 Units/L Troponin T high-sensitivity series (baseline, 2hr, 4hr, 6hr) Collection Time: 12/06/22 2:51 PM Result Value Ref Range Trop T hs 35 (H) <=14 ng/L Differential, auto Collection Time: 12/06/22 2:51 PM Result Value Ref Range Neutrophil abs 5.9 1.7 - 6.5 K/cumm Imm gran abs 0.0 0.0 - 0.1 K/cumm Lymphocyte abs 1.8 0.8 - 3.3 K/cumm Monocyte abs 0.7 0.2 - 0.8 K/cumm Eosinophil abs 0.2 0.0 - 0.5 K/cumm Basophil abs 0.0 0.0 - 0.1 K/cumm Neutrophil pct 68.7 % Imm gran pct 0.5 % Lymphocyte pct 20.5 % Monocyte pct 7.8 % Eosinophil pct 2.0 % Basophil pct 0.5 % eGFR Collection Time: 12/06/22 2:51 PM Result Value Ref Range eGFR 21 mL/min/1.73 m2 POCT glucose Collection Time: 12/06/22 2:52 PM Result Value Ref Range Glucose, POC 222 (H) 70 - 199 mg/dL Troponin T high-sensitivity 2-hour Collection Time: 12/06/22 4:29 PM Result Value Ref Range Trop T hs 33 (H) <=14 ng/L Trop T hs delta -2 ng/L Trop T hs interp Insignificant POCT glucose Collection Time: 12/06/22 8:07 PM Result Value Ref Range Glucose, POC 189 70 - 199 mg/dL XR Chest 1 Vw Portable Result Date: 12/06/2022 Narrative: EXAM: XR CHEST 1 VIEW DATE: 12/06/2022 3:00 PM CLINICAL HISTORY: Shortness of breath. COMPARISON: 11/30/2022 FINDINGS: Portable AP radiograph of the chest was obtained. The heart size is normal. The lungs are well-expanded. There are bilateral pleural effusions and there is consolidation in both lung bases. The upper lung cavanaugh are clear. Impression: Interval development of bilateral pleural effusions and bibasilar consolidation. Electronically signed by: Wilner Rodriguez M.D. ECG 12 lead Result Date: 12/06/2022 Narrative: Vent Rate: 68 bpm RR Interval: 873 msec MO Interval: 175 msec QRS Duration: 73 msec QT Interval: 422 msec QTC Interval: 440 msec P-R-T [place]: 98 - 20 - 20 degrees SINUS RHYTHM LOW QRS VOLTAGE IN PRECORDIAL LEADS [QRS DEFLECTION < 1.0 mV IN CHEST LEADS] BORDERLINE ECG Compared to previous ECG the low- voltage is new Electronically Signed By: Audie Gould MD, [facility] Transthoracic Echo (TTE) Complete W Doppler/CF Result Date: 12/01/2022 Narrative: Adult Echocardiogram + + :Name: SIXTO CHAKRABORTY Study Date: 12/01/2022 Status: [facility] : : Patient Location: [address]^[id number]^Height: 62 in : : Weight: 176 lbBP: 115/62 mmHg: :: 1950 Gender: Female BSA: 1.8 m2 : :Reason For Study: Cellulitis of the Lower Extremity : :Ordering Physician: AC, : :KOREY : : : :Performed By: Mindy : :SHEA Thayer : + + Procedure A two-dimensional transthoracic echocardiogram with color flow and Doppler was performed. Left Ventricle Left ventricular chamber size is normal. Left ventricular systolic function appears to be normal. No obvious regional wall motion abnormalities noted. Technically inadequate to evaluate wall motion abnormalities. Right Ventricle The right ventricle is normal in size and function. Atria The left atrial size is normal. Right atrial size is normal. There is no Doppler evidence for an atrial septal defect. Mitral Valve The mitral valve is normal. There is no evidence of mitral valve prolapse. There is no mitral valve stenosis. No significant mitral regurgitation noted. Tricuspid Valve The tricuspid valve is normal. There is mild tricuspid regurgitation. 'Mild' pulmonary hypertension. Aortic Valve Difficult to assess number of leaflets. The aortic valve opens well. No aortic stenosis . No aortic regurgitation is present. Pulmonic Valve The pulmonic valve is not well visualized. Great Vessels The aortic root is normal size. Pericardium Thereis no pericardial effusion. Diastology E/E prime ratio is >15 suggesting a high pulmonary wedge pressure and LV diastolic dysfunction. Interpretation Summary Left ventricular systolic function appears to be normal. No obvious regional wall motion abnormalities noted. Technically inadequate to evaluate wall motion abnormalities. E/E prime ratio is >15 suggesting a high pulmonary wedge pressure and LV diastolic dysfunction. There is mild tricuspid regurgitation. 'Mild' pulmonary hypertension. + + :Measurements with Normals : :IVSd: (0.6-1.2 LVIDd: (3.5-5.7 Ao root diam: (2.0- 3.7 : :0.72 cm cm) 4.2 cm cm) 2.4 cmcm) : :LVPWd: (0.6-1.1 LVIDs: (3.1-4.6 LA dimension: (1.9-4.0 : :0.78 cm cm) 2.6 cm cm) 3.3 cm cm) : + + MMode/2D Measurements & Calculations RVDd: 2.8 cm FS: 39.7 % Ao root area: 4.5 cm2 LVOT diam: 1.7 cm EDV(Teich): 79.9 ml LVOT area: 2.3 cm2 ESV(Teich): 23.4 ml Doppler Measurements & Calculations MV E max leonard: MV V2 max: MV P1/2t max leonard: Ao V2 max: 132.0 cm/sec 128.0 cm/sec 136.0 cm/sec 168.0 cm/sec MV A maxvel: MV max PG: MV P1/2t: 58.3 msec Ao max P.0 cm/sec 6.6 mmHg MVA(P1/2t): 3.8 cm2 11.3 mmHg MV E/A: 1.2 MV V2 mean: MV dec slope: ALEXEY(V,D): 2.1 cm2 85.9 cm/sec MV mean P.0 cm/sec2 3.0 mmHg MV V2 VTI: 33.8 cm LV V1 max PG: TV V2 max: PA V2 max: RV V1 max: 10.0 mmHg 76.4 cm/sec 130.0 cm/sec 84.7 cm/sec LV V1 max: TV max PG: PA max P.8 mmHg 158.0 cm/sec 2.3 mmHg TR max leonard: RAP systole: 305.0 cm/sec 3.0 mmHg TR max P.2 mmHg RVSP(TR): 40.2 mmHg Elec tronically signed by: Evangelist Jara MD 12/01/2022 11:09 PM XR Toe Great Right Minimum 2 Views Result Date: 11/30/2022 Narrative: EXAM DESCRIPTION: XR TOE GREAT RIGHT MINIMUM 2 VIEWS REASON FOR STUDY: chronic toe infection R/o osteomyelitis. -tech hold for lateral and internal oblique TECHNIQUE: Three views 1st digitright foot COMPARISON: X-ray of the right foot dated 11/06/2022 FINDINGS: The tuft cortex of the 1st digit right foot demonstrates irregularity. The very tip demonstrates some minimal interval reabsorption best appreciated when comparing the lateral views. No associated soft tissue gas. Soft tissueswelling present. Amputation of the phalanges involving the 4th digit of the right foot again noted. Osteoarthritic changes are present. Atherosclerotic vascular disease. IMPRESSION: 1. Minimal interval bone reabsorption of the right tip of the tuft 1st digit right foot. Findings worrisome for osteomyelitis. Soft tissue swelling. THIS IS AN ELECTRONICALLY VERIFIED FINAL REPORT 11/30/2022 1:13 PM -Electronically signed by Adryan POWERS T: Report ID: [id number] Reading Location: [id number] XR Chest 1 Vw Portable Result Date: 11/30/2022 Narrative: EXAM DESCRIPTION: XR CHEST 1 VIEW REASON FOR STUDY: swelling Pt with onset extremity swelling over past 4-5 days, fatigue weakness as well TECHNIQUE: One-view COMPARISON: 10/02/2022 and 08/01/2022 FINDINGS: Heart size is normal. No pneumothorax. Increased markings over the lower lung cavanaugh due to overlying soft tissue. No eleazar findings of lobar pneumonia. No pulmonary edema. Some flat tening of the diaphragms. IMPRESSION: 1. No lobar pneumonia. THIS IS AN ELECTRONICALLY VERIFIED FINAL REPORT 11/30/2022 1:07 PM - Electronically signed by Adryan PAZ T: Report ID: [id number] Reading Location: [id number] MRI Foot Right WO Contrast Result Date: 11/10/2022 Narrative: EXAMINATION: MRI FOOT RIGHT WO CONTRAST HISTORY: Right great toe wound. Evaluating for osteomyelitis TECHNIQUE: Multiplanar multisequence MR examination of the right foot was performed without contrast . COMPARISON: Right foot radiographs 11/06/2022. FINDINGS: There is soft tissue swelling involving the right great toe with a distal wound. There is are small sites of erosion involving the great toe distal tuft with associated marrow edema extending into the distal phalanx base. No drainable fluid collection. There has been prior application of the 4th digit through the metatarsal neck. There is subcutaneous edema about the ankle and along the dorsum of the foot. Mild first metatar sophalangeal joint chondrosis. There is subacute on chronic denervation of intrinsic foot musculature. There is tendinopathy of the distal Achilles tendon. Impression: 1. Distal right great toe wound with osteomyelitis of the distal phalanx and small erosions of the distal tuft. Dictated by: Radha Bell M.D. The radiology attending physicianhas personally reviewed this study, and had reviewed and/or edited this written report and agrees with it. Electronically signed by: Weston Kasper MD, PHD US TEO Result Date: 11/07/2022 Narrative: EXAMINATION: Unilateral LOWER EXTREMITY ARTERY DUPLEX WITH TEO'S DATE: 11/07/2022 3:00 PMHISTORY: chronic wound right hallux COMPARISON: 10/16/2021 TECHNIQUE: Standard technique was employed for unilateral lower extremity arterial duplex with TEO's including grayscale and color Doppler images with spectral waveform analysis. FINDINGS: SITE WAVEFORM RT FEMORAL Triphasic RT P. FEMORAL Biphasic RT S. FEMORAL Triphasic RT POPLITEAL Biphasic RT POST TIBIAL Triphasic RT PERONEAL Biphasic RTANT TIBIAL Biphasic RT LORENE PED Biphasic SITE PRESSURE INDEX RT BRACHIAL 162 RT ANKLE PT 158 0.95 RTANKLE DP 177 1.06 RT DIGIT 225 1.35 Right posterior tibial and dorsalis pedis waveforms are biphasic. Digital waveform is pulsatile. LT BRACHIAL 167 LT ANKLE PT 155 0.93 LT ANKLE DP 171 1.02 LT DIGIT 170 1.02 Left posterior tibial waveform is monophasic the dorsalis pedis waveform is biphasic digital waveform is pulsatile Impression: RIGHT LEG:Patent right lower extremity vasculature with multiphasic waveforms. The TEO is 1.06 and TBI is 1.35. LEFT LEG:Normal TEO at rest 1.02 and TBI 1.02 . Electronically signed by: Mir Zavaleta M.D. Arterial Duplex Lower Extremity Right Limited Result Date: 11/07/2022 Narrative: EXAMINATION: Unilateral LOWER EXTREMITY ARTERY DUPLEX WITH TEO'S DATE: 11/07/2022 3:00 PMHISTORY: chronic wound right hallux COMPARISON: 10/16/2021 TECHNIQUE: Standard technique was employed for unilateral lower extremity arterial duplex with TEO's including grayscale and color Doppler images with spectral waveform analysis. FINDINGS: SITE WAVEFORM RT FEMORAL Triphasic RT P. FEMORAL Biphasic RT S. FEMORAL Triphasic RT POPLITEAL Biphasic RT POST TIBIAL Triphasic RT PERONEAL Biphasic RTANT TIBIAL Biphasic RT LORENE PED Biphasic SITE PRESSURE INDEX RT BRACHIAL 162 RT ANKLE PT 158 0.95 RTANKLE DP 177 1.06 RT DIGIT 225 1.35 Right posterior tibial and dorsalis pedis waveforms are biphasic. Digital waveform is pulsatile. LT BRACHIAL 167 LT ANKLE PT 155 0.93 LT ANKLE DP 171 1.02 LT DIGIT 170 1.02 Left posterior tibial waveform is monophasic the dorsalis pedis waveform is biphasic digital waveform is pulsatile Impression: RIGHT LEG:Patent right lower extremity vasculature with multiphasic waveforms. The TEO is 1.06 and TBI is 1.35. LEFT LEG:Normal TEO at rest 1.02 and TBI 1.02 . Electronically signed by: Mir Zavaleta M.D. ASSESSMENT/PLAN: Principal Problem: Acute on chronic diastolic congestive heart failure (CMS/HCC) ([facility]) Active Problems: 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 2 diabetes mellitus (CMS/HCC) ([facility]) Osteomyelitis of great toe of right foot (CMS/HCC) ([facility]) BRENDA (acute kidney injury) ([facility]/HCC) ([facility]) Type 2 diabetes mellitus with diabetic neuropathy, with long-term current use of insulin (CMS/HCC) ([facility]) Bibasilar consolidations Schizoaffective disorder, bipolar type ([facility]) ([facility]) Late onset Alzheimer's dementia without behavioral disturbance ([facility]) Movement disorder 1. Acute on chronic diastolic CHF: Rule out DE. Diurese. Cardiology Consult Serial bladder scans Telemetry 2. BRENDA on CKD4 with hyperkalemia: Trend GFR with diuresis. Nephrology Consult Sabine Roberts 3. Right 1st toe osteomyelitis: The patient refused surgery. The power of senior attorney is less certain.The plan was for three weeks of antibiotics and reassess. The POA requests 2nd opinion with our Infectious Disease doctors and Podiatry. We will also have wound nurse see the patient. Continue doxy and ceftriaxone 4. Bibasilar consolidations: Suspect his atelectasis due to pulmonary pleural effusions. Low suspicion for pneumonia. Repeat chest x-ray in the morning 5. DM: Lantus, humalog qac. SSI 6. Schizophrenia with movement disorder: Movement disorder thought to be due to antipsychotic therapy. Continue Risperdal for schizophrenia and continue Cogentin for the movement disorder. 7. Dementia: Patient's daughter is his power of senior attorney Dvt ppx: Heparin sq Full Code per the daughter's request ESTIMATED LENGTH OF STAY: Two or more inpatient midnights All diagnoses present on admission unless otherwise noted. My total encounter time on 12/06/22 was 76 minutes which was spent in the activities documented in the note. This includes time spent prior to the visit and after the visit in direct care of the patient. This time does not include time spent in any separately reportable services. documented in this encounter Consult Notes * Portillo Marin DPM - 12/08/2022 10:41 AM CDTAssociated Order(s): IP CONSULT TO PODIATRY [facility] Subjective: Patient is a 72 y.o. female with PMH of T2DM, peripheral neuropathy, dementia, chronic wound to right hallux. Patient was admitted 12/06 for SOB. Podiatry was consulted for evaluation of right hallux osteomyelitis. Patient was evaluated by podiatry 11/07 during previous admission where amputation of right hallux was discussed but patient and family deferred - family states [facility] Previous cultures were positive for MRSA and PICC line wasplaced with antibiotics managed by Infectious Disease. Patient states she has continued to receivedlocal wound, notes deferring amputation at this time. States would at been improving. Past Medical History: Diagnosis Date Arthritis CHF (congestive heart failure) ([facility]/HCC) (HCC) Dementia ([facility]) Depression Diabetic neuropathy ([facility]) Hyperlipidemia Hypertension Movement disorder Osteomyelitis ([facility]) Renal disorder Schizophrenia ([facility]) Type 2 diabetes mellitus ([facility]) Past Surgical History: Procedure Laterality Date SECTION Right right foot TOE AMPUTATION Right 01/06/2020 4th toe amp/ foot debridement/ Dr. Anat Pelayo Current Facility-Administered Medications: albuterol HFA (PROVENTIL HFA,VENTOLIN HFA,PROAIR HFA) 90 mcg/actuation inhaler 2 puff, 2 puff, inhalation, Q4H PRN (RT), Robert Hernandez MD amLODIPine (NORVASC) tablet 10 mg, 10 mg, oral, Nightly, Robert Hernandez MD, 10 mg at 12/07/222052 atorvastatin (LIPITOR) tablet 20 mg, 20 mg, oral, Nightly, Robert Hernandez MD, 20 mg at 12/07/222052 benztropine (COGENTIN) tablet 1.5 mg, 1.5 mg, oral, Nightly, Robert Hernandez MD, 1.5 mg at12/07/222052 carvediloL (COREG) tablet 12.5 mg, 12.5 mg, oral, BID with meals (bkfst, dinner), Drew Hernandez MD, 12.5 mg at 12/08/22947 cefepime (MAXIPIME) 2,000 mg in sodium chloride 0.9% 100 mL IVPB, 2,000 mg, intravenous, Q24H [facility], En Chaudhary MD, Last Rate: 200 mL/hr at 12/08/22946, 2,000 mg at 12/08/22946 dextrose oral liquid liquid 15 g, 15 g, oral, Q15 Min PRN OR dextrose (D10W) 10% bolus 250 mL, 250 mL, intravenous, Q15 Min PRN, Robert Hernandez MD doxycycline monohydrate (MONODOX) capsule 100 mg, 100 mg, oral, BID - special, Robert Hernandez MD, 100 mg at 12/08/22540 famotidine (PEPCID) tablet 10 mg, 10 mg, oral, Daily, Robert Hernandez MD, 10 mg at 12/08/22947 ferric gluconate (FERRLECIT) 125 mg of elemental iron in sodium chloride 0.9% 100 mL IVPB, 125 mg of elemental iron, intravenous, Once per day on Thu, Jimbo Strauss MD ferrous sulfate delayed release tablet 65 mg of elemental iron, 65 mg of elemental iron, oral, Daily with breakfast, Darlyn Guzman MD, 65 mg of elemental iron at 12/08/22947 furosemide (LASIX) 10 mg/mL injection 40 mg, 40 mg, intravenous, Q12H SOL, Robert Hernandez MD, 40 mg at 12/08/2248 glucagon injection 1 mg, 1 mg, intramuscular, Q30 Min PRN, Robert Hernandez MD heparin 5,000 unit/mL injection 5,000 Units, 5,000 Units, subcutaneous, Q8H SOL, Robert Hernandez MD, 5,000 Units at 12/08/22 0541 insulin glargine (LANTUS, SEMGLEE) 100 unit/mL injection 15 Units, 15 Units, subcutaneous, Nightly,Robert Hernandez MD, 15 Units at 12/07/222051 insulin lispro (HumaLOG, ADMELOG) 100 unit/mL injection 0-4 Units, 0-4 Units, subcutaneous, Nightly, Robert Hernandez MD insulin lispro (HumaLOG, ADMELOG) 100 unit/mL injection 0-5 Units, 0-5 Units, subcutaneous, TID with meals, Robert Hernandez MD, 2 Units at 12/07/221802 insulin lispro (HumaLOG, ADMELOG) 100 unit/mL injection 7 Units, 7 Units, subcutaneous, TID with meals, Robert Hernandez MD, 7 Units at 12/08/22 0947 polyethylene glycol (MIRALAX) packet 17 g, 17 g, oral, Daily PRN, Robert Hernandez MD pregabalin (LYRICA) capsule 75 mg, 75 mg, oral, Nightly, Robert Hernandez MD, 75 mg at 12/07/222052 risperiDONE (RisperDAL) tablet 2 mg, 2 mg, oral, Nightly, Robert Hernandez MD, 2 mg at 12/07/222052 No Known Allergies Social History Tobacco Use Smoking status: Never Smokeless tobacco: Never Substance and Sexual Activity Drug use: Never Sexual activity: Defer Alcohol Use: Not At Risk (12/06/2022) AUDIT-C Frequency of Alcohol Consumption: Never Average Number of Drinks: Patient does not drink Frequency of Binge Drinking: Never Family History Problem Relation Age of Onset Stomach cancer Father Review of Systems Constitutional: Negative for chills, fatigue, appetite changes. Psychological: Negative for anxiety, disorientation, confusion. Endocrine: Negative for polydipsia, polyuria, polyphagia, unexpected weight changes. Cardiovascular: Negative for chest pain, palpitation. Respiratory: Negative for shortness of breath, dyspnea, cough. Gastrointestinal: Negative for nausea, vomiting, diarrhea. Genitourinary: Negative for dysuria, hematuria. Musculoskeletal: Negative except for as stated in HPI. Neurological: Negative except for as stated in HPI. Dermatological: Negative except for as stated in HPI. Objective: Vitals: Vitals: 12/08/22 0815 BP: 128/66 Pulse: 68 Resp: 19 Temp: 36.7 ??C (98.1 ??F) SpO2: 92% General: Patient is A&O x4, NAD. Lower extremity focused physical exam: Derm: Skin is cool, dry. Open wound noted to distal aspect of right hallux. Granular base. Negative probe to bone, no activedrainage, no surrounding erythema, no proximal streaking. No malodor noted. Vasc: DP pulse, left foot: not palpable. DP pulse, right foot: not palpable. PT pulse, left foot: not palpable. PT pulse, right foot: not palpable. Capillary refill time > three seconds to all digits, bilateral feet. No edema noted bilaterally. Neuro: Protective sensation grossly diminished to the level of the digits via light touch, left foot. Protective sensation grossly diminished to the level of the digits via light touch, right foot. Musculoskeletal: No pain on palpation of right hallux. Muscle strength deferred. Labs: Lab Results Component Value Date SODIUM 141 12/08/2022 POTASSIUM 4.6 12/08/2022 CHLORIDE 109 12/08/2022 CO2 20 (L) 12/08/2022 ANIONGAP 12 12/08/2022 BUNSER 67 (H) 12/08/2022 CREATININE 2.58 (H) 12/08/2022 GLUCOSE 119 12/08/2022 CALCIUM 9.2 12/08/2022 BILITOT <0.2 12/06/2022 PROT 7.6 12/06/2022 ALBUMIN 2.9 (L) 12/08/2022 ALKPHOS 100 12/06/2022 ALT 10 12/06/2022 AST 14 12/06/2022 Lab Results Component Value Date WBC 8.0 12/08/2022 HGB 7.2 (L) 12/08/2022 HCT 23.2 (L) 12/08/2022 LABPLAT 294 12/08/2022 MPV 11.3 12/08/2022 RBC 2.41 (L) 12/08/2022 MCV 96.3 12/08/2022 MCH 29.9 12/08/2022 MCHC 31.0 (L) 12/08/2022 RDWCV 16.1 (H) 12/08/2022 RDWSD 56.7 (H) 12/08/2022 NRBCABS 0.02 (H) 12/08/2022 Lab Results Component Value Date SEDRATE 94 (H) 02/07/2021 CRP 3.1 02/07/2021 Radiology/Pathology: 11/30/22 EXAM DESCRIPTION: XR TOE GREAT RIGHT MINIMUM 2 VIEWS REASON FOR STUDY: chronic toe infection R/o osteomyelitis. -tech hold for lateral and internal oblique TECHNIQUE: Three views 1st digit right foot COMPARISON: X-ray of the right foot dated 11/06/2022 FINDINGS: The tuft cortex of the 1st digit right foot demonstrates irregularity. The very tip demonstrates some minimal interval reabsorption best appreciated when comparing the lateral views. No associated soft tissue gas. Soft tissue swelling present. Amputation of the phalanges involving the 4th digit of the right foot again noted. Osteoarthritic changes are present. Atherosclerotic vascular disease. IMPRESSION: 1. Minimal interval bone reabsorption of the right tip of the tuft 1st digit right foot. Findings worrisome for osteomyelitis. Soft tissue swelling. 11/08/22 EXAMINATION: MRI FOOT RIGHT WO CONTRAST HISTORY: Right great toe wound. Evaluating for osteomyelitis TECHNIQUE: Multiplanar multisequence MR examination of the right foot was performed without contrast . COMPARISON: Right foot radiographs 11/06/2022. FINDINGS: There is soft tissue swelling involving the right great toe with a distal wound. There is are small sites of erosion involving the great toe distal tuft with associated marrow edema extending into the distal phalanx base. No drainable fluid collection. There has been prior application of the 4th digit through the metatarsal neck. There is subcutaneous edema about the ankle and along the dorsum of the foot. Mild first metatarsophalangeal joint chondrosis. There is subacute on chronic denervation of intrinsic foot musculature. There is tendinopathy of the distal Achilles tendon. IMPRESSION: 1. Distal right great toe wound with osteomyelitis of the distal phalanx and small erosions of the distal tuft. Assessment: 1. Shortness of breath 2. Acute systolic congestive heart failure (CMS/HCC) ([facility]) Plan: - Patient examined and evaluated - Reviewed labs/radiographs - No leukocytosis - No acute signs of infection to right hallux - Right hallux wound improved from 11/07 evaluation - Previous admission evaluation by Vascular Surgery showing good circulation for wound healing - Continue conservative wound care per Wound nurse instructions - Infectious Disease following, appreciate recs - Weight bearing status: WBAT - Podiatry signing off, please reconsult as necessary Portillo Marin DPM Voice recognition software [employer] was used to dictate/transcribe this document. Clerk Rating variances may occur. Despite proofreading, typographical, grammatical and syntax errors may occur. * Rita Fraga RN - 12/08/2022 10:00 AM CDT Images from the original note were not included. SWAT evaluation and wound care consult: PMH of dementia, schizophrenia, DM type 2, HTN, HLD, and CKD. Wound care dept consulted for great toe wound. At risk for skin breakdown and delayed wound healing. Pressure prevention and moisture control orders written. Impression: 1 x 1 cm ulceration to Tip of right great toe, dry wound bed, no odor, no drainage Plan: Betadine paint daily and leave open to air Goal: Keep clean, dry and provide antimicrobial coverage * En Chaudhary MD - 12/07/2022 12:02 PM CDT Images from the original note were not included. Infectious Disease Consult Consulting Physician: HPI: Patient is a 72 y.o. female with multiple medical problems including a history of dementia, CHF, diabetes mellitus and schizophrenia was admitted to the hospital on 12/06 for having increasing shortness of breath. Patient was recently discharged on 12/05 from a outside hospital for a right 1st toe osteo myelitis. Patient at that time had refused toe amputation. Since she started having some increasing shortness of breath her daughter brought her to the emergency room. On admission the patient's temperature is 98??, WBC of 8.6, hemoglobin 7.7 and a creatinine of 2.37. Chest x-ray done showed development of bilateral pleural effusions and bibasilar consolidation. [facility] being asked to evaluate this patient for the reasons. PMH: Past Medical History: Diagnosis Date Arthritis CHF (congestive heart failure) (CMS/HCC) (HCC) Dementia (HCC) Depression Diabetic neuropathy (HCC) Hyperlipidemia Hypertension Movement disorder Osteomyelitis (HCC) Renal disorder Schizophrenia (HCC) Type 2 diabetes mellitus (HCC) Past Surgical History: Procedure Laterality Date SECTION Right right foot TOE AMPUTATION Right 01/06/2020 4th toe amp/ foot debridement/ Dr. Anat Pelayo Med: Current Facility-Administered Medications Medication Dose Route Frequency Provider Last Rate Last Admin albuterol HFA (PROVENTIL HFA,VENTOLIN HFA,PROAIR HFA) 90 mcg/actuation inhaler 2 puff 2 puff inhalation Q4H PRN (RT) Robert Hernandez MD amLODIPine (NORVASC) tablet 10 mg 10 mg oral Nightly Robert Hernandez MD 10 mg at 12/06/222003 atorvastatin (LIPITOR) tablet 20 mg 20 mg oral Nightly Robert Hernandez MD benztropine (COGENTIN) tablet 1.5 mg 1.5 mg oral Nightly Robert Hernandez MD carvediloL (COREG) tablet 12.5 mg 12.5 mg oral BID with meals (bkfst, dinner) Robert Hernandez MD 12.5 mg at 12/07/22 0846 cefTRIAXone (ROCEPHIN) 2,000 mg/20 mL in sterile water (premix) 2,000 mg 2,000 mg intravenous Q24H SOL Robert Hernandez MD 2,000 mg at 12/07/22 1035 dextrose oral liquid liquid 15 g 15 g oral Q15 Min PRN Robert Hernandez MD Or dextrose (D10W) 10% bolus 250 mL 250 mL intravenous Q15 Min PRN Robert Hernandez MD doxycycline monohydrate (MONODOX) capsule 100 mg 100 mg oral BID - special Robert Hernandez MD 100 mg at 12/07/22 0528 famotidine (PEPCID) tablet 10 mg 10 mg oral Daily Robert Hernandez MD 10 mg at 12/07/22 0847 [START ON 12/08/2022] ferric gluconate (FERRLECIT) 125 mg of elemental iron in sodium chloride 0.9% 100 mL IVPB 125 mg of elemental iron intravenous Once per day on Thu Jimbo Strauss MD ferrous sulfate delayed release tablet 65 mg of elemental iron 65 mg of elemental iron oral Daily with breakfast Darlyn Guzman MD 65 mg of elemental iron at 12/07/22 0847 furosemide (LASIX) 10 mg/mL injection 40 mg 40 mg intravenous Q12H Robert Ro MD 40 mg at 12/07/22 0847 glucagon injection 1 mg 1 mg intramuscular Q30 Min PRN Robert Hernandez MD heparin 5,000 unit/mL injection 5,000 Units 5,000 Units subcutaneous Q8H [facility] Robert Hernandez MD 5,000 Units at 12/07/22 0528 insulin glargine (LANTUS, SEMGLEE) 100 unit/mL injection 15 Units 15 Units subcutaneous Nightly Robert Hernandez MD 15 Units at 12/07/22 0115 insulin lispro (HumaLOG, ADMELOG) 100 unit/mL injection 0-4 Units 0-4 Units subcutaneous Nightly Robert Hernandez MD insulin lispro (HumaLOG, ADMELOG) 100 unit/mL injection 0-5 Units 0-5 Units subcutaneous TID with meals Robert Hernandez MD 1 Units at 12/07/22 0848 insulin lispro (HumaLOG, ADMELOG) 100 unit/mL injection 7 Units 7 Units subcutaneous TID with mealsRobert Hernandez MD 7 Units at 12/07/22 0850 polyethylene glycol (MIRALAX) packet 17 g 17 g oral Daily PRN Robert Hernandez MD pregabalin (LYRICA) capsule 75 mg 75 mg oral Nightly Robert Hernandez MD 75 mg at 12/06/222003 risperiDONE (RisperDAL) tablet 2 mg 2 mg oral Nightly Robert Hernandez MD Allergies: No Known Allergies SH: Social History Tobacco Use Smoking status: Never Smokeless tobacco: Never Substance and Sexual Activity Drug use: Never Sexual activity: Defer Alcohol Use: Not At Risk (12/06/2022) AUDIT-C Frequency of Alcohol Consumption: Never Average Number of Drinks: Patient does not drink Frequency of Binge Drinking: Never FH: Family History Problem Relation Age of Onset Stomach cancer Father Immunosuppressive Medications: Saccharomyces boulardii, acetaminophen, albuterol HFA, amLODIPine, amino acids- protein hydr-fiber, ascorbic acid, atorvastatin, benztropine, bisacodyL, carvediloL, cefTRIAXone, (conner.stocking,thigh,reg,med), doxycycline monohydrate, dulaglutide, epoetin isaiah-epbx, famotidine, ferrous sulfate, flash glucose scanning reader, flash glucose sensor, furosemide, insulin glargine, insulin lispro, lidocaine, magnesium citrate, magnesium hydroxide, multivitamin with minerals, omeprazole, polyethyleneglycol, pregabalin, and risperiDONE Review of Systems: Gen: denies fevers, denies chills, denies sweats, denies unintentional weight loss HEENT: Denies sore throat, denies thrush Neck: Denies palpable lymph nodes, denies neck stiffness Cv: denies chest pain, denies palpitations Resp: Denies SOB, Denies orthopnea Gi: Denies abdominal pain, Denies diarrhea, denies n/v Extrem: Denies gross deformities, denies joint pain, denies myalgias Skin: Denies rashes, denies lesions Neuro: Denies weakness, denies paresthesias, denies memory loss Psych: denies depression, denies anxiety Objective: Vitals: 24hr Min/Max: Temp Min: 36.2 ??C (97.2 ??F) Max: 37 ??C (98.6 ??F) Pulse Min: 66 Max: 90 BP Min: 119/74 Max: 142/53 Resp Min: 12 Max: 22 SpO2 Min: 90 % Max: 99 % Most Recent : Vitals: 12/07/22 0000 12/07/22 0400 12/07/22 0827 12/07/22 1146 BP: 126/76 123/72 119/74 141/66 BP Location: Right arm Right arm Right arm Right arm Patient Position: Lying Lying Lying Lying Pulse: 90 69 75 70 Resp: Temp: 37 ??C (98.6 ??F) 36.4 ??C (97.6 ??F) 36.8 ??C (98.3 ??F) 36.7 ??C (98.1 ??F) TempSrc: Axillary Axillary Oral Oral SpO2: 90% 92% 92% 98% Weight: Height: Physical Exam: General appearance: alert, cooperative, no distress HEENT: (-)icterus, Oropharnyx is normal, NCAT Neck: No palpable LN Lungs: Course breath sounds and symmetric; minimal respiratory effort, no r/w/c Heart: regular rhythm, normal S1 and S2, no m/r/g Abdomen: soft without mass, non-tender, +bowel sounds, no HSM Skin: (-)new rashes, right great toe with dry gangrene. No drainage. Minimal erythema around the toe. MSK: no gross deformities, FROM Vascular: no Edema, Neuro: No focal deficits Psych: Appropriate mood and affect Lab/Radiology/Diagnostic Review: Reviewed. Recent Labs Lab Units 12/06/22 1451 12/05/22 0735 12/04/22 0623 WBC K/cumm 8.6 7.5 8.6 HEMOGLOBIN g/dL 7.7* 7.6* 7.2* HEMATOCRIT % 25.2* 24.2* 22.5* PLATELETS K/cumm 288 280 267 Recent Labs Lab Units 12/06/22 1451 12/05/22 0735 12/04/22 0623 BUN SERUM mg/dL 51* 51* 55* CREATININE mg/dL 2.37* 2.30* 2.50* Lab Results Component Value Date ALT 10 12/06/2022 AST 14 12/06/2022 ALKPHOS 100 12/06/2022 BILITOT <0.2 12/06/2022 Cultures 11/08 right toe culture with MRSA and mixed Gram-positive organisms 11/30 urine culture with clinically insignificant MRI Foot Right WO Contrast Result Date: 11/10/2022 There is soft tissue swelling involving the right great toe with a distal wound. There is are smallsites of erosion involving the great toe distal tuft with associated marrow edema extending into the distal phalanx base. No drainable fluid collection. There has been prior application of the 4th digit through the metatarsal neck. There is subcutaneous edema about the ankle and along the dorsum ofthe foot. Mild first metatarsophalangeal joint chondrosis. There is subacute on chronic denervationof intrinsic foot musculature. There is tendinopathy of the distal Achilles tendon. Impression: 1. Distal right great toe wound with osteomyelitis of the distal phalanx and small erosions of the distal tuft. Assessment: 1. Pneumonia 2. Right great toe ulcer with osteomyelitis 3. Dementia 4. Acute kidney injury 5. CHF/diabetes mellitus/schizophrenia 6. Bilateral pleural effusions Plan: Continue doxycycline and change ceftriaxone to cefepime 2. Check respiratory PCR for viruses 3. Continue supportive care Thank you for letting me participate in this patient's care, will follow with you. En Chaudhary MD 12/07/2022 * Jimbo Strauss MD - 12/07/2022 11:00 AM CDTAssociated Order(s): IP CONSULT TO NEPHROLOGY Renal Consultation Requested By: Robert Hernandez MD Requested Of: Jimbo Strauss MD REASON FOR CONSULT BRENDA on CKD4 with CHF Dictating: Jimbo Strauss MD #: [id number] : 1950 CSN: [id number] Date of Admission: 12/06/2022 Date of Consult: 12/07/2022 History Of Present Illness: This is a 72 y.o. Black Or female with PMH dm, htn, dementia, ckd, pvd, schizophrenia who was just discharged from out side hospital where she was admitted for osteomyelitis of toe presented with dyspnea. Also, has PND, orthopnea. Has been on antibiotics. No urinary complaints. Past Medical History CKD: stage 3b, dueto dm, htn. Past Medical History: Diagnosis Date Arthritis CHF [...] Sexual Activity Drug use: Never Sexual activity: Defer Alcohol Use: Not At Risk (12/06/2022) AUDIT-C Frequency of Alcohol Consumption: Never Average Number of Drinks: Patient does not drink Frequency of Binge Drinking: Never Family History: Family History Problem Relation Age of Onset Stomach cancer Father Review of Systems limited as patient is confused. Medications as listed in epic Physical Exam: Vitals: 24hr Min/Max: Temp Min: 36.2 ??C (97.2 ??F) Max: 37 ??C (98.6 ??F) Pulse Min: 66 Max: 90 BP Min: 123/72 Max: 142/53 Resp Min: 16 Max: 22 SpO2 Min: 90 % Max: 99 % Intake/Output Summary (Last 24 hours) at 12/07/2022 0619 Last data filed at 12/07/2022 0455 Gross per 24 hour Intake -- Output 0 ml Net 0 ml Wt Readings from Last 3 Encounters: 12/06/22 78.9 kg (173 lb 15.1 oz) 12/05/22 79.3 kg (174 lb 12.8 oz) 11/10/22 69.5 kg (153 lb 4.8 oz) @FLOWS@ Temp Av.6 ??C (97.8 ??F) Min: 36.2 ??C (97.2 ??F) Max: 37 ??C (98.6 ??F) BP Min: 123/72 Max: 142/53 Pulse Av.4 Min: 66 Max: 90 Resp Av.6 Min: 16 Max: 22 SpO2 Av.5 % Min: 90 % Max: 99 % Most Recent: Vitals: 12/07/22 0400 BP: 123/72 Pulse: 69 Resp: 22 Temp: 36.4 ??C (97.6 ??F) SpO2: 92% Physical Exam: Constitutional: well-developed, well-nourished, and in no distress. HENT: Head: Normocephalic. Eyes: Conjunctivae and EOM are normal. Pupils are equal, round, and reactive to light. No scleral icterus. Neck: Normal range of motion. Neck supple. Cardiovascular: Normal rate, regular rhythm and normal heart sounds. Pulmonary/Chest: Effort normal and breath sounds normal. Abdominal: Soft. Bowel sounds are normal. Musculoskeletal: Normal range of motion. +1 LE edema Neurological: alert and oriented to person, place, and time. Bilateral tremor, suck reflex LDA: PICC Single Lumen 11/11/22 Non-tunneled Power Left Brachial;Upper arm (Active) Placement Date/Time: 11/11/22 1310 Placed by External Staff?: Other hospital Catheter Time Out Checklist Completed: Yes Hand Hygiene Performed: Yes Site Prep: Chlorhexidine Site Prep Agent has Completely Dried Before Insertion: Yes All 5 Steril... Number of days: 25 External Urinary Catheter (Active) Placement Date/Time: 12/06/22 1700 Inserted by: SWATI LAY External Catheter Type: Female External Urinary Catheter Sizes: Female- One size Number of days: 0 Vent settings: Hemodynamics: Lab/Radiology/Diagnostic Review: Recent Labs Lab Units 12/06/22200612/06/22 1452 12/06/22 1451 12/05/22 1159 12/05/22 0735 12/04/22 0724 12/04/22 0623 12/03/22 1615 12/03/22 1252 SODIUM mmol/L -- -- 137 -- 142 -- 140 -- 138 POTASSIUM PLASMA mmol/L -- -- 5.1* -- 4.5 -- 4.7 -- 4.6 CHLORIDE mmol/L -- -- 106 -- 111* -- 109 -- 105 CO2 mmol/L -- -- 20* -- 23 -- 22 -- 21* BUN SERUM mg/dL -- -- 51* -- 51* -- 55* -- 52* CREATININE mg/dL -- -- 2.37* -- 2.30* -- 2.50* -- 2.80* [id number] mL/min/1.73 m2 -- -- 21 -- 22 -- 20 -- 17 GLUCOSE mg/dL -- -- 206* -- 140 -- 189 -- 155 POC GLUCOSE MONITOR mg/dL 189 < > -- < > -- < > -- < > -- CALCIUM mg/dL -- -- 9.2 -- 8.9 -- 8.7 -- 9.0 ALBUMIN g/dL -- -- 3.2* -- -- -- 2.9* -- 3.1* < > = values in this interval not displayed. Additional Labs: Recent Labs Lab Units 12/06/22 1451 12/05/22 0735 12/04/22 0623 WBC K/cumm 8.6 7.5 8.6 HEMOGLOBIN g/dL 7.7* 7.6* 7.2* HEMATOCRIT % 25.2* 24.2* 22.5* PLATELETS K/cumm 288 280 267 NEUTROS PCT % 68.7 63.5 59.3 LYMPHS PCT % 20.5 23.6 27.7 MONOS PCT % 7.8 9.6 9.7 EOS PCT % 2.0 2.8 2.6 Recent Labs Lab Units 11/30/221914 COLOR U Yellow CLARITY U Cloudy* SPEC GRAV U 1.005 PH, URINE 5.0 PROTEIN UR QL 1+* GLUCOSE URQL Negative KETONES UR Negative BLOOD UR Negative NITRITE UR Negative LEUKOCYTE ESTERASE UR 4+* Recent Labs Lab Units 11/30/221914 COLOR U Yellow CLARITY U Cloudy* SPEC GRAV U 1.005 PH, URINE 5.0 PROTEIN UR QL 1+* GLUCOSE URQL Negative KETONES UR Negative BLOOD UR Negative NITRITE UR Negative LEUKOCYTE ESTERASE UR 4+* XR Chest 1 Vw Portable Result Date: 12/06/2022 Interval development of bilateral pleural effusions and bibasilar consolidation. Electronically signed by: Wilner Rodriguez M.D. Problems: CKD: stage 3b, due to dm, htn. Expect some rise due to diuresis. HTN: adequately controlled Edema: mostly LE some combination of CKD, pulmonary HTN, on going diuresis. Will add metolazone to regimen Anemia: combination of CKD, possible iron deficiency Dyspnea: due to volume overload. Hyperkalemia: mild. 7. Tremors: possible related to parkinson. May benefit form neurology consult. Time Spent on the evaluation process was 80 minutes Thank you for allowing me to participate in the care of this patient. If you have any questions please do not hesitate to call. DICTATION DISCLAIMER: This note is transcribed using the [employer] direct voice recognition system without human x ray tech. In an effort to expedite patient care, this note has not been adjusted for typographical, grammatical, and syntax by a trained medical instrument technician. Jimbo Strauss Office:[phone] Pager: [phone] * Clayton Lainez Jr., MD - 12/07/2022 9:36 AM CDTAssociated Order(s): IP CONSULT TO CARDIOLOGY Cardiology Consult Note-[facility] Date of Consult: 12/07/2022 Patient's Primary Care Physician: Cherelle Corcoran MD Physician Requesting Consult: No ref. provider found Reason for Consultation: Fluid overload, possible congestive heart failure Name: Sixto Chakraborty Age: 72 y.o. Race: Sex: female Chief Complaint/History of Present Illness Patient was admitted with PMHx of congestive heart failure, dementia, diabetes mellitus type 2, chronic kidney disease, hypertension, hyperlipidemia, and Parkinson's. Apparently the patient developedsome progressive shortness of breath and developed orthopnea. She denies any history of coronary disease. She denies any chest pain. She says she is breathing much better since admission. She has a very poor historian. She was recently hospitalized at [facility] for osteomyelitis of the right great toe. She has longstanding diabetes mellitus type 2 with diabetic neuropathy. Past Medical History: Diagnosis Date Arthritis CHF [...] Relation Age of Onset Stomach cancer Father Social History Tobacco Use Smoking status: Never Smokeless tobacco: Never Substance and Sexual Activity Drug use: Never Sexual activity: Defer Alcohol Use: Not At Risk (12/06/2022) AUDIT-C Frequency of Alcohol Consumption: Never Average Number of Drinks: Patient does not drink Frequency of Binge Drinking: Never Medications Prior to Admission Medication Sig Dispense Refill Last Dose acetaminophen (TYLENOL) 325 mg tablet Take 2 tablets (650 mg total) by mouth every 6 (six) hours asneeded for pain Unknown albuterol HFA (ProAir HFA) 90 mcg/actuation inhaler Inhale 2 puffs every 4 (four) hours as needed for wheezing or shortness of breath 8.5 g 0 Unknown amino acids-protein hydr-fiber (Pro-Stat Renal Care) 15-100 gram-kcal/30 mL liquid Take 30 mL by mouth 2 (two) times a day Unknown amLODIPine (NORVASC) 10 mg tablet Take 1 tablet (10 mg total) by mouth nightly 30 tablet 1 12/05/2022 ascorbic acid 500 mg tablet,chewable Take 1 tablet/chew tab (500 mg total) by mouth 2 (two) times aday Unknown atorvastatin (LIPITOR) 20 mg tablet Take 1 tablet (20 mg total) by mouth nightly Unknown benztropine (COGENTIN) 1 mg tablet Take 1.5 tablets (1.5 mg total) by mouth nightly 45 tablet 0 Unknown bisacodyL (DULCOLAX) 10 mg suppository Insert 1 suppository (10 mg total) into the rectum daily as needed for constipation Unknown bisacodyL (FLEET-BISACODYL) 10 mg/30 mL enema Insert 30 mL (10 mg total) into the rectum daily as needed for constipation (if no results 24 hours after suppository) Unknown carvediloL (COREG) 12.5 mg tablet Take 1 tablet (12.5 mg total) by mouth 2 (two) times a day with meals 60 tablet 0 Unknown cefTRIAXone (ROCEPHIN) syringe Infuse 20 mL (2,000 mg total) into a venous catheter daily 840 mL 0 Unknown conner.stocking,thigh,reg,med misc Wear as much as possible 2 each 1 Unknown doxycycline monohydrate (MONODOX) 100 mg capsule Take 1 capsule (100 mg total) by mouth 2 (two) times a day 60 capsule 1 Unknown dulaglutide (TRULICITY) 1.5 mg/0.5 mL pen injector Inject 0.5 mL (1.5 mg total) under the skin oncea week on Mondays Unknown epoetin isaiah-epbx (RETACRIT) (10,000 unit/mL) solution Inject 1 mL (10,000 Units total) under the skin once a week Unknown famotidine (PEPCID) 10 mg tablet Take 1 tablet (10 mg total) by mouth daily Unknown ferrous sulfate 325 mg (65 mg of elemental iron) tablet Take 1 tablet (325 mg total) by mouth 2 (two) times a day 60 tablet 1 Unknown flash glucose scanning reader (FreeStyle Madhav 2 [place]) misc Use to continually monitor glucose 1 each 0 Unknown flash glucose sensor (FreeStyle Madhav 2 Sensor) kit Use to continually monitor glucose, change every 14 days 6 kit 3 Unknown furosemide (LASIX) 40 mg tablet Take 1 tablet (40 mg total) by mouth 2 (two) times a day 60 tablet 1 Unknown insulin glargine 100 unit/mL (3 mL) pen for injection Inject 25 Units under the skin nightly To start once blood sugars are consistently above 200 Unknown insulin lispro (HumaLOG, ADMELOG) 100 unit/mL pen [...] 12 units BG >400 = call MD Unknown insulin lispro (HumaLOG, ADMELOG) 100 unit/mL pen for injection Inject 7 Units under the skin 3 (three) times a day before meals plus sliding scale Unknown lidocaine (ASPERCREME) 4 % adhesive patch,medicated Place 1 patch on the skin daily to lower back Unknown magnesium citrate solution Take 296 mL by mouth daily as needed (for constipation if no results after enema) Unknown magnesium hydroxide (MILK OF MAGNESIA) suspension 400 mg/5 mL Take 30 mL by mouth nightly as needed(constipation if no bowel movement in 3 days) Unknown multivitamin with minerals tablet Take 1 tablet by mouth daily Unknown polyethylene glycol (MIRALAX) 17 gram packet Take 1 packet (17 g total) by mouth daily as needed for constipation Unknown pregabalin (LYRICA) 75 mg capsule Take 1 capsule (75 mg total) by mouth nightly 30 capsule 0 Unknown risperiDONE (RisperDAL) 2 mg tablet Take 1 tablet (2 mg total) by mouth nightly 30 tablet 0 Unknown Saccharomyces boulardii (FLORASTOR) 250 mg capsule Take 1 capsule (250 mg total) by mouth 2 (two) times a day while receiving antibiotic therapy Unknown No Known Allergies MEDICATIONS FOR CURRENT ENCOUNTER: SCHEDULED MEDICATIONS: Scheduled Medications Medication Dose Route Frequency amLODIPine (NORVASC) tablet 10 mg 10 mg oral Nightly atorvastatin (LIPITOR) tablet 20 mg 20 mg oral Nightly benztropine (COGENTIN) tablet 1.5 mg 1.5 mg oral Nightly carvediloL (COREG) tablet 12.5 mg 12.5 mg oral BID with meals (bkfst, dinner) cefTRIAXone (ROCEPHIN) 2,000 mg/20 mL in sterile water (premix) 2,000 mg 2,000 mg intravenous Q24H [facility] doxycycline monohydrate (MONODOX) capsule 100 mg 100 mg oral BID - special famotidine (PEPCID) tablet 10 mg 10 mg oral Daily [START ON 12/08/2022] ferric gluconate (FERRLECIT) 125 mg of elemental iron in sodium chloride 0.9% 100 mL IVPB 125 mg of elemental iron intravenous Once per day on Thu ferrous sulfate delayed release tablet 65 mg of elemental iron 65 mg of elemental iron oral Daily with breakfast furosemide (LASIX) 10 mg/mL injection 40 mg 40 mg intravenous Q12H [facility] heparin 5,000 unit/mL injection 5,000 Units 5,000 Units subcutaneous Q8H [facility] insulin glargine (LANTUS, SEMGLEE) 100 unit/mL injection 15 Units 15 Units subcutaneous Nightly insulin lispro (HumaLOG, ADMELOG) 100 unit/mL injection 0-4 Units 0-4 Units subcutaneous Nightly insulin lispro (HumaLOG, ADMELOG) 100 unit/mL injection 0-5 Units 0-5 Units subcutaneous TID with meals insulin lispro (HumaLOG, ADMELOG) 100 unit/mL injection 7 Units 7 Units subcutaneous TID with meals pregabalin (LYRICA) capsule 75 mg 75 mg oral Nightly risperiDONE (RisperDAL) tablet 2 mg 2 mg oral Nightly CONTINUOUS MEDICATIONS: Continuous Medications Medication Dose Last Rate PRN MEDICATIONS: PRN Medications Medication Dose Route Frequency Last Admin albuterol HFA (PROVENTIL HFA,VENTOLIN HFA,PROAIR HFA) 90 mcg/actuation inhaler 2 puff 2 puff inhalation Q4H PRN (RT) dextrose oral liquid liquid 15 g 15 g oral Q15 Min PRN Or dextrose (D10W) 10% bolus 250 mL 250 mL intravenous Q15 Min PRN glucagon injection 1 mg 1 mg intramuscular Q30 Min PRN polyethylene glycol (MIRALAX) packet 17 g 17 g oral Daily PRN Review of Systems As per the [facility] Data Recent Labs Lab Units 12/06/22 1451 12/05/22 0735 12/04/22 0623 WBC K/cumm 8.6 7.5 8.6 HEMOGLOBIN g/dL 7.7* 7.6* 7.2* HEMATOCRIT % 25.2* 24.2* 22.5* PLATELETS K/cumm 288 280 267 Recent Labs Lab Units 12/07/22 0825 12/06/22200612/06/22 1452 12/06/22 1451 12/05/22 1159 12/05/22 0735 12/04/22 0724 12/04/22 0623 12/03/22 1615 12/03/22 1252 SODIUM mmol/L -- -- -- 137 -- 142 -- 140 -- 138 POTASSIUM PLASMA mmol/L -- -- -- 5.1* -- 4.5 -- 4.7 -- 4.6 CO2 mmol/L -- -- -- 20* -- 23 -- 22 -- 21* ANIONGAP mmol/L -- -- -- 11 -- 8 -- 9 -- 12 GLUCOSE mg/dL -- -- -- 206* -- 140 -- 189 -- 155 POC GLUCOSE MONITOR mg/dL 166 189 222* -- < > -- < > -- < > -- BUN SERUM mg/dL -- -- -- 51* -- 51* -- 55* -- 52* CREATININE mg/dL -- -- -- 2.37* -- 2.30* -- 2.50* -- 2.80* CALCIUM mg/dL -- -- -- 9.2 -- 8.9 -- 8.7 -- 9.0 ALBUMIN g/dL -- -- -- 3.2* -- -- -- 2.9* -- 3.1* ALK PHOS Units/L -- -- -- 100 -- -- -- 107 -- 135* ALT Units/L -- -- -- 10 -- -- -- 7 -- 9 AST Units/L -- -- -- 14 -- -- -- 10 -- 13 BILIRUBIN TOTAL mg/dL -- -- -- <0.2 -- -- -- <0.2 -- <0.2 < > = values in this interval not displayed. No results found for: BNP No lab exists for component: TROPONIN Lab Results Component Value Date TSH 1.52 09/02/2021 TSH 1.54 02/07/2021 TSH 0.990 10/16/2020 Exam Vitals: 12/06/22 2000 12/07/22 0000 12/07/22 0400 12/07/22 0827 BP: 138/66 126/76 123/72 119/74 BP Location: Right arm Right arm Right arm Right arm Patient Position: Lying Lying Lying Lying Pulse: 80 90 69 75 Resp: Temp: 36.8 ??C (98.2 ??F) 37 ??C (98.6 ??F) 36.4 ??C (97.6 ??F) 36.8 ??C (98.3 ??F) TempSrc: Oral Axillary Axillary Oral SpO2: 94% 90% 92% 92% Weight: Height: Intake/Output Summary (Last 24 hours) at 12/07/2022 0993 Last data filed at 12/07/2022 0455 Gross per 24 hour Intake -- Output 0 ml Net 0 ml General: in no apparent distress Neuro: Alert and oriented x 3, moves all extremities well, parkinsonian tremor noted HEENT: Unremarkable Lungs: symmetric, unlabored, clear to auscultation bilaterally Heart: S1,S2, regular rate & rhythm, no murmurs, rubs, or gallops Abdomen: soft, non-tender, non-distended, bowel sounds present Extremities: Trace LE edema, palpable peripheral pulses BL Assessment and Plan Shortness of breath/fluid overload -this may be multifactorial with her chronic kidney disease and history of congestive heart failure -I did not find an old echocardiogram to compare with, will order echo this admission -will consider stress testing once we see what the LV function is, currently not necessary as she has no symptoms of ischemia -proBNP is mildly elevated at 633, unclear of significance in light of chronic kidney disease -troponins flat Acute on chronic kidney disease -nephrology is following Diabetes mellitus type 2 -A1c pending Dementia -according to the chart she has Alzheimer's dementia without behavioral disturbance Hypertension -blood pressure is adequately controlled at the present time Parkinsonism Thank you for allowing us to participate in the care of this patient. We will continue to follow. If you have any questions, please don't hesitate to call. Clayton Lainez Jr., MD [facility] 12/07/2022 9:37 AM * Jimbo Strauss MD - 12/07/2022 6:32 AM CDT Renal Pt will be seen full note to follow CKD: stage 3b, due to dm, htn. Expect some rise due to diuresis. HTN: adequately controlled Edema: mostly LE some combination of CKD, pulmonary HTN, on going diuresis. Will add metolazone to regimen Anemia: combination of CKD, possible iron deficiency Dyspnea: due to volume overload. Hyperkalemia: mild. Jimbo Strauss Office/exchange: [phone] Pager: [phone] documented in this encounter Nursing Notes * Becky De La O RN - 12/15/2022 1:50 PM CDT Images from the original note were not included. SWAT RE-EVALUATION Impression: Patient re-evaluated by SWEDNA RN due to increase risk for impaired skin integrity. Timoteo score: 15. MASD w/ skin loss at gluteal cleft. Yenny wound hyperpigmented. Skin is free from TREVON . Plan: Continue pressure prevention orders - Q2 hr turns/bathroom checks, waffle mattress, absorbentpads, and prevalon boots. Local wound care : Extra protective cream BID and PRN. PAWEL RN to follow and assess. Goal: Pressure relief and moisture management. * Cricket Nicole RN - 12/14/2022 1:11 PM CDT 1300 Tele box replaced with box 58- notified tele station via phone- person would not verify if pt was showing up now- cancellation clerk notified that a form needed faxed to tele monitoring- unsure if pt tele is being monitored but staff was verbally notified of change in monitor- pt is awake and cheerful. Will con't to attempt to monitor pt condition without tele coming through on computer- Charge Nurse notified of attempts. * Cricket Nicole RN - 12/12/2022 2:36 PM CDT teacher of gifted students and instructor replaced joy cath- pt tolerated well. * Cricket Nicole RN - 12/12/2022 2:33 PM CDT 1145- Sitting up in chair at bedside- pt voiced soiling gown- went to clean pt up, noted Joy cathdislodged. Cleaned up with fresh gown and clean chucks placed underneath pt while sitting in chair. documented in this encounter ED Notes * Lucy Lucero MD - 12/06/2022 2:39 PM CDT HPI Chief Complaint Patient presents with Shortness of Breath 72-year-old female with the past medical history significant for hypertension, diabetes, hyperlipidemia, history of acute renal failure superimposed on chronic renal failure history of Parkinson's who was recently in [facility] for infected right great toe which has osteomyelitis and was currently on IV antibiotics patient also had history of congestive heart failure. Patient used to be onLasix and it was stopped and more Hospital as she developed acute on chronic renal failure due to antibiotics and Lasix patient was discharged home with the IV antibiotics with home health patient has been feeling short of breath during the night last night. Patient has difficulty lying down. Patient denies chest pain nausea vomiting History provided by: Patient Patient History: Patient Active Problem List Diagnosis Date Noted Acute renal failure superimposed on chronic kidney disease, unspecified CKD stage, unspecified acute renal failure type ([facility]) 11/30/2022 Cellulitis of great toe of right foot Abnormal urinalysis 11/07/2022 Osteomyelitis of great toe of right foot ([facility]) ([facility]) 11/06/2022 Anemia in stage 4 chronic kidney disease ([facility]) 10/10/2022 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[facility]) 08/14/2022 Pulmonary nodule 11/16/2021 Physical deconditioning 11/15/2021 Left leg DVT ([facility]) ([facility]) 11/15/2021 Toe necrosis ([facility]) ([facility]) 10/07/2021 Anemia 09/07/2021 Volume overload 09/06/2021 Retention of urine, unspecified 08/22/2021 Unspecified osteoarthritis, unspecified site 08/22/2021 Unsteadiness on feet 08/22/2021 Weakness 08/22/2021 Late onset Alzheimer's dementia without behavioral disturbance ([facility]) 08/19/2021 Encounter for Medicare annual wellness exam 01/08/2021 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 2 diabetes mellitus ([facility]) ([facility]) 12/11/2020 Dementia ([facility]) 10/10/2020 Schizoaffective disorder, bipolar type ([facility]) ([facility]) 10/10/2020 Hyperlipidemia associated with type 2 diabetes mellitus ([facility]) 04/03/2020 Iron deficiency anemia 04/02/2020 Gastroesophageal reflux disease 04/02/2020 Amputation of toe of right foot ([facility]) ([facility]) 01/19/2020 Hypertension associated with diabetes ([facility]) 12/13/2019 Schizoaffective disorder, bipolar type ([facility]) ([facility]) 08/30/2019 Type 2 diabetes mellitus with diabetic neuropathy, with long-term current use of insulin ([facility]) (HCC) 08/30/2019 Diabetic neuropathy ([facility]) Past Medical History: Diagnosis Date Arthritis Dementia (HCC) Depression Diabetic neuropathy (HCC) Hyperlipidemia Hypertension Renal disorder Schizophrenia (HCC) Type 2 diabetes mellitus (HCC) Past Surgical History: Procedure Laterality Date SECTION Right right foot TOE AMPUTATION Right 01/06/2020 4th toe amp/ foot debridement/ Dr. Anat Pelayo Family History Problem Relation Age of Onset Stomach cancer Father Social History Tobacco Use Smoking status: Never Smokeless tobacco: Never Substance and Sexual Activity Alcohol use: Not Currently Drug use: Never Sexual activity: Defer Social History Social History Narrative Originally From [place] Grew up with her mom and dad. 12th grade - graduated. [employer]. [employer] - none. 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 I never worked. Single. Review of Systems Review of Systems Constitutional: Negative for chills, fatigue and fever. HENT: Negative for congestion, ear discharge, ear pain, postnasal drip, sinus pressure, sinus pain and sore throat. Eyes: Negative for discharge, redness and visual disturbance. Respiratory: Positive for shortness of breath. Negative for cough, chest tightness and wheezing. Cardiovascular: Negative for chest pain and palpitations. Gastrointestinal: Negative for abdominal pain, blood in stool, diarrhea, nausea and vomiting. Endocrine: Negative for cold intolerance, polydipsia and polyuria. Genitourinary: Negative for difficulty urinating, dysuria, flank pain, hematuria and urgency. Musculoskeletal: Negative for back pain, joint swelling, myalgias, neck pain and neck stiffness. Skin: Negative for pallor and rash. Allergic/Immunologic: Negative for environmental allergies and food allergies. Neurological: Negative for dizziness, facial asymmetry, speech difficulty, weakness, light-headedness, numbness and headaches. Hematological: Negative for adenopathy. Psychiatric/Behavioral: Negative for agitation, confusion and hallucinations. All other systems reviewed and are negative. Physical Exam ED Triage Vitals [12/06/22 1358] Temp Pulse Resp BP SpO2 36.2 ??C (97.2 ??F) 66 18 139/63 98 % Temp src Heart Rate Source Patient Position BP Location FiO2 (%) Tympanic -- -- -- -- Height Height Method Weight Weight Method 1.575 m (5' 2 ) -- 78.9 kg (174 lb) -- Physical Exam Vitals and nursing note reviewed. Constitutional: General: She is not in acute distress. Appearance: She is well-developed. HENT: Head: Normocephalic and atraumatic. Mouth/Throat: Pharynx: No oropharyngeal exudate. Eyes: Conjunctiva/sclera: Conjunctivae normal. Pupils: Pupils are equal, round, and reactive to light. Neck: Trachea: No tracheal deviation. Cardiovascular: Rate and Rhythm: Normal rate and regular rhythm. Heart sounds: No murmur heard. No friction rub. No gallop. Pulmonary: Effort: Pulmonary effort is normal. No respiratory distress. Breath sounds: Examination of the right-lower field reveals decreased breath sounds and rales. Examination of the left-lower field reveals decreased breath sounds and rales. Decreased breath sounds and rales present. No wheezing. Abdominal: General: Bowel sounds are normal. There is no distension. Palpations: Abdomen is soft. Tenderness: There is no abdominal tenderness. There is no guarding or rebound. Musculoskeletal: General: No tenderness or deformity. Normal range of motion. Cervical back: Neck supple. Lymphadenopathy: Cervical: No cervical adenopathy. Skin: General: Skin is dry. Neurological: Mental Status: She is alert and oriented to person, place, and time. Cranial Nerves: No cranial nerve deficit. Sensory: No sensory deficit. Motor: No abnormal muscle tone. Coordination: Coordination normal. Deep Tendon Reflexes: Reflexes normal. Psychiatric: Behavior: Behavior normal. [facility] Medical Decision Making 72-year-old female with the history of diabetes, hypertension, congestive heart failure presents tot emergency room with complaining of exertional shortness of breath orthopnea and PND differentials include congestive heart failure possible pneumonia. Amount and/or Complexity of Data Reviewed Radiology: ordered. ECG/medicine tests: ordered. Risk Prescription drug management. Decision regarding hospitalization. ED Course as of 12/06/22 1658 Time: 12/06 1445 Comment: Will obtain lab work along with a BNP and a chest X ray By: Lucy Lucero MD Time: 12/06 164 Comment: Reviewed the lab and imaging results. Patient appears to be in congestive heart failure will give IV Lasix. Will admit Discussed with the Dr. Guzman [facility] who agrees to admit this patient and will follow By: Lucy Lucero MD Final diagnoses: Shortness of breath Acute systolic congestive heart failure (CMS/HCC) (HCC) Lucy Lucero MD 12/06/22 1446 Lucy Lucero MD 12/06/22 1648 Lucy Lucero MD 12/06/22 1658 * Anali Haines RN - 12/06/2022 1:55 PM CDT PT complains of shortness of breath for 2 weeks. documented in this encounter Miscellaneous Notes * Plan of Care - Jonathon Mcgregor LMSW - 12/18/2022 10:58 AM CDT HYDRAULIC GOVERNOR ASSEMBLER confirmed with [facility] home infusion that they can accept pt for a Thursday start. They also confirmed that the medication was delivered. HYDRAULIC GOVERNOR ASSEMBLER spoke to pt's daughter, Areli ([phone]) to inform her of the DC. She was agreeable. She requested a hospital bed and a wheelchair. HYDRAULIC GOVERNOR ASSEMBLER informed her that it was unlikely the pt would qualify due to her being able to ambulate and lack of a diagnosis. She was agreeable. She requested that the pt return home at 9pm because the daughter will be home then. HYDRAULIC GOVERNOR ASSEMBLER set up EMS. DC instructions are below. No more SS needs at this time. AKASH Stephen Incinerator Attendant Case Management 12/18/22 11:09 AM * Plan of Care - Kanika Briones RN - 12/17/2022 10:22 PM CDT Goals: Clinical Goals for the Shift: rest, OOB to chair and bath Problem: Lack of Knowledge Goal: Knowledge of disease or condition will improve Outcome: Adequate for Discharge Problem: Lack of Knowledge: Goal: Ability to state ways to decrease the risk of falls will improve Outcome: Adequate for Discharge Problem: Safety: Goal: Will remain free from falls Outcome: Adequate for Discharge Goal: Will remain free from injury from falls Outcome: Adequate for Discharge Goal: Will remain free from falls and injury in home environment Outcome: Adequate for Discharge Problem: Activity: Goal: Mobility will improve Outcome: Adequate for Discharge Problem: Lack of Knowledge: Goal: Understanding of ways to prevent future skin breakdown will improve Outcome: Adequate for Discharge Goal: Ability to identify appropriate dietary choices will improve Outcome: Adequate for Discharge Problem: Nutritional: Goal: Dietary intake will improve Outcome: Adequate for Discharge Goal: Ability to maintain a balanced intake and output will improve Outcome: Adequate for Discharge Problem: Skin Integrity: Goal: Risk for impaired skin integrity will decrease Outcome: Adequate for Discharge Goal: Ability to demonstrate warm and dry skin will improve Outcome: Adequate for Discharge Goal: Circulation will improve to fullest extent possible Outcome: Adequate for Discharge Problem: Health Behavior: Goal: Understanding of discharge needs will improve Outcome: Adequate for Discharge Problem: Lack of Knowledge: Goal: Ability to develop a pain control plan will improve Outcome: Adequate for Discharge Goal: Ability to identify pain intensity on a pain scale and rate it consistently will improve Outcome: Adequate for Discharge Goal: Ability to notify healthcare provider of pain before it becomes unmanageable or unbearable will improve Outcome: Adequate for Discharge Problem: Medication: Goal: Satisfaction with pain management regimen will improve Outcome: Adequate for Discharge Problem: Sensory: Goal: Ability to identify factors that increase the pain will improve Outcome: Adequate for Discharge Goal: Pain level will decrease Outcome: Adequate for Discharge Summary: * Plan of Care - Cricket Nicole RN - 12/17/2022 2:03 PM CDT Goals: Clinical Goals for the Shift: rest, OOB to chair and bath Summary: Problem: Lack of Knowledge Goal: Knowledge of disease or condition will improve Outcome: Progressing Problem: Lack of Knowledge: Goal: Ability to state ways to decrease the risk of falls will improve Outcome: Progressing Problem: Safety: Goal: Will remain free from falls Outcome: Progressing Problem: Activity: Goal: Mobility will improve Outcome: Progressing Problem: Nutritional: Goal: Dietary intake will improve Outcome: Progressing * Plan of Care - Jonathon Mcgregor LMSW - 12/17/2022 1:57 PM CDT HYDRAULIC GOVERNOR ASSEMBLER attempted to contact [facility] to determine if they can service pt starting Thursday, when her next home dose would be due as they cannot service on . HYDRAULIC GOVERNOR ASSEMBLER was given the number of the RN breaker operator, Kim ([phone]). HYDRAULIC GOVERNOR ASSEMBLER attempted to contact that number and was unable to reach her. The VM was not set up, so no message was left. HYDRAULIC GOVERNOR ASSEMBLER will continueto follow. AKASH Stephen Incinerator Attendant Case Management 12/17/22 1:59 PM * Plan of Care - Kanika Briones RN - 12/16/2022 11:39 PM CDT Goals: Clinical Goals for the Shift: safety vs comfort Problem: Lack of Knowledge Goal: Knowledge of disease or condition will improve Outcome: Not Progressing Problem: Lack of Knowledge: Goal: Ability to state ways to decrease the risk of falls will improve Outcome: Not Progressing Problem: Safety: Goal: Will remain free from falls Outcome: Not Progressing Goal: Will remain free from injury from falls Outcome: Not Progressing Goal: Will remain free from falls and injury in home environment Outcome: Not Progressing Problem: Activity: Goal: Mobility will improve Outcome: Not Progressing Problem: Lack of Knowledge: Goal: Understanding of ways to prevent future skin breakdown will improve Outcome: Not Progressing Goal: Ability to identify appropriate dietary choices will improve Outcome: Not Progressing Problem: Nutritional: Goal: Dietary intake will improve Outcome: Not Progressing Goal: Ability to maintain a balanced intake and output will improve Outcome: Not Progressing Problem: Skin Integrity: Goal: Risk for impaired skin integrity will decrease Outcome: Not Progressing Goal: Ability to demonstrate warm and dry skin will improve Outcome: Not Progressing Goal: Circulation will improve to fullest extent possible Outcome: Not Progressing Problem: Health Behavior: Goal: Understanding of discharge needs will improve Outcome: Not Progressing Problem: Lack of Knowledge: Goal: Ability to develop a pain control plan will improve Outcome: Not Progressing Goal: Ability to identify pain intensity on a pain scale and rate it consistently will improve Outcome: Not Progressing Goal: Ability to notify healthcare provider of pain before it becomes unmanageable or unbearable will improve Outcome: Not Progressing Problem: Medication: Goal: Satisfaction with pain management regimen will improve Outcome: Not Progressing Problem: Sensory: Goal: Ability to identify factors that increase the pain will improve Outcome: Not Progressing Goal: Pain level will decrease Outcome: Not Progressing Summary: * Plan of Care - Jonathon Mcgregor LMSW - 12/16/2022 1:59 PM CDT HYDRAULIC GOVERNOR ASSEMBLER sent order for daptomycin to [facility]. Pt still needs a corrected HH order to be signed before they can accept. HYDRAULIC GOVERNOR ASSEMBLER informed the physician. Pt does not have home IV infusion set up until the order is signed by the attending. AKASH Stephen Incinerator Attendant Case Management 12/16/22 2:00 PM * Plan of Care - Jose Fuller RN - 12/16/2022 6:24 AM CDT Problem: Lack of Knowledge Goal: Knowledge of disease or condition will improve Outcome: Progressing Problem: Lack of Knowledge: Goal: Ability to state ways to decrease the risk of falls will improve Outcome: Progressing Problem: Safety: Goal: Will remain free from falls Outcome: Progressing Goal: Will remain free from injury from falls Outcome: Progressing Goal: Will remain free from falls and injury in home environment Outcome: Progressing Problem: Activity: Goal: Mobility will improve Outcome: Progressing Problem: Nutritional: Goal: Dietary intake will improve Outcome: Progressing Goal: Ability to maintain a balanced intake and output will improve Outcome: Progressing Problem: Skin Integrity: Goal: Risk for impaired skin integrity will decrease Outcome: Progressing Goal: Ability to demonstrate warm and dry skin will improve Outcome: Progressing Goal: Circulation will improve to fullest extent possible Outcome: Progressing Problem: Health Behavior: Goal: Understanding of discharge needs will improve Outcome: Progressing Problem: Lack of Knowledge: Goal: Ability to develop a pain control plan will improve Outcome: Progressing Goal: Ability to identify pain intensity on a pain scale and rate it consistently will improve Outcome: Progressing Goal: Ability to notify healthcare provider of pain before it becomes unmanageable or unbearable will improve Outcome: Progressing Problem: Medication: Goal: Satisfaction with pain management regimen will improve Outcome: Progressing Problem: Sensory: Goal: Ability to identify factors that increase the pain will improve Outcome: Progressing Goal: Pain level will decrease Outcome: Progressing Goals: Clinical Goals for the Shift: safety vs comfort Summary Patient orientation has improved very well. Was turned and joy/pericare done. * Plan of Pee - Jonathon Mcgregor LMSW - 12/15/2022 3:03 PM CDT HYDRAULIC GOVERNOR ASSEMBLER sent updated HH order to [facility]. HYDRAULIC GOVERNOR ASSEMBLER will continue to follow. AKASH Stephen Incinerator Attendant Case Management 12/15/22 3:03 PM * Plan of Cricket Trinh RN - 12/15/2022 11:29 AM CDT Goals: Clinical Goals for the Shift: SAFETY VS COMFORT Summary: Problem: Lack of Knowledge Goal: Knowledge of disease or condition will improve Outcome: Progressing Problem: Safety: Goal: Will remain free from falls Outcome: Progressing Problem: Nutritional: Goal: Dietary intake will improve Outcome: Progressing Problem: Skin Integrity: Goal: Circulation will improve to fullest extent possible Outcome: Progressing Problem: Health Behavior: Goal: Understanding of discharge needs will improve Outcome: Progressing * Plan of Care - Jose Fuller RN - 12/15/2022 6:37 AM CDT Problem: Lack of Knowledge Goal: Knowledge of disease or condition will improve Outcome: Progressing Problem: Lack of Knowledge: Goal: Ability to state ways to decrease the risk of falls will improve Outcome: Progressing Problem: Safety: Goal: Will remain free from falls Outcome: Progressing Goal: Will remain free from injury from falls Outcome: Progressing Goal: Will remain free from falls and injury in home environment Outcome: Progressing Problem: Activity: Goal: Mobility will improve Outcome: Progressing Problem: Lack of Knowledge: Goal: Understanding of ways to prevent future skin breakdown will improve Outcome: Progressing Goal: Ability to identify appropriate dietary choices will improve Outcome: Progressing Problem: Nutritional: Goal: Dietary intake will improve Outcome: Progressing Goal: Ability to maintain a balanced intake and output will improve Outcome: Progressing Problem: Skin Integrity: Goal: Risk for impaired skin integrity will decrease Outcome: Progressing Goal: Ability to demonstrate warm and dry skin will improve Outcome: Progressing Goal: Circulation will improve to fullest extent possible Outcome: Progressing Problem: Health Behavior: Goal: Understanding of discharge needs will improve Outcome: Progressing Goals: Clinical Goals for the Shift: SAFETY VS COMFORT Summary Slept fine in the night. Was turned. Vanc dose given this morning. Other care per recorded * Provider Query - Bev Adames MD - 12/14/2022 8:41 PM CDT Specify a diagnosis that reflects the patient???s Level of strength and mobility on admission, POA.Document in the medical record and on the form below. Select all that apply: _x__ Limitation of activity due to disability ___ Chronic Fatigue ___ Reduced Mobility ___ Other, specify below Additional Provider Response: Clinical Indicators/Treatments: ED 12/06: 72 y/o F, presents w/SOB, difficulty lying down.. PMH: HTN, DM, HLD, h/o BRENDA superimposed on CRF, h/o Parkinson's. Recently in hospital for infected rt great toe,+OM, on IV abx. H/o CHF, wason Lasix which was stopped d/t A/C renal failure. Pt. History/Active Problem List: Physical deconditioning 11/15/2021 Late onset Alzheimer's dementia without behavioral disturbance 08/19/2021 Admit: SOB, acute systolic CHF. Tx. ceftriaxone, doxy, lasix. H&P 12/06: HPI: The pt. has underlying dementia but is not entirely sure why she is here.She states that she is here for toe pain. She notes a dry cough. The pt. has BRENDA on CKD4, stable anemia, hyperkalemia, stable troponin x2, stable CBC. Just discharged yesterday from hospital for tx. right 1st toe OM. H/o CHF, CKD, OM, DM, Schizophrenia, Movement d/o, Dementia, HLD, HTN. A/P: Dementia. Dtr.is her POA. Cardiac PN 12/08: A/P: Pt. Active Problem List includes: Physical deconditioning HYDRAULIC GOVERNOR ASSEMBLER/Case mgmt. 12/08: Has [facility] therapies and nurse visit. DME: wheeled walker, shower chair and rails in bathroom. Lives private residence with children. Use of terms such as likely, suspected, possible, or probable (associated with a specific diagnosisthat is being evaluated, monitored, or treated as if it exists) are acceptable and can be coded in the inpatient setting when documented at the time of discharge. This documentation will become part of the patient???s medical record. Thank you, Yara Ta RN, CCDS Certified Clinical Calender Worker Helper * Plan of Care - Cricket Nicole RN - 12/14/2022 10:53 AM CDT Goals: Clinical Goals for the Shift: turn freq Summary: Problem: Lack of Knowledge Goal: Knowledge of disease or condition will improve Outcome: Progressing Problem: Safety: Goal: Will remain free from falls Outcome: Progressing Problem: Nutritional: Goal: Dietary intake will improve Outcome: Progressing Problem: Health Behavior: Goal: Understanding of discharge needs will improve Outcome: Progressing * Plan of Care - Jose Fuller RN - 12/14/2022 6:31 AM CDT Problem: Lack of Knowledge: Goal: Ability to state ways to decrease the risk of falls will improve Outcome: Progressing Problem: Safety: Goal: Will remain free from falls Outcome: Progressing Goal: Will remain free from injury from falls Outcome: Progressing Goal: Will remain free from falls and injury in home environment Outcome: Progressing Problem: Activity: Goal: Mobility will improve Outcome: Progressing Problem: Nutritional: Goal: Dietary intake will improve Outcome: Progressing Goal: Ability to maintain a balanced intake and output will improve Outcome: Progressing Problem: Health Behavior: Goal: Understanding of discharge needs will improve Outcome: Progressing Goals: Clinical Goals for the Shift: safety vs comfort Summary Patient's orientation seems not changing. Had her medications, was turned and joy care given. Patient daughter would want to have a call from the doctor for update. * Plan of Care - Cricket Nicole RN - 12/13/2022 10:38 AM CDT Goals: Clinical Goals for the Shift: rest and oob to chair Summary: Problem: Safety: Goal: Will remain free from falls Outcome: Progressing Problem: Activity: Goal: Mobility will improve Outcome: Progressing Problem: Nutritional: Goal: Dietary intake will improve Outcome: Progressing Problem: Skin Integrity: Goal: Circulation will improve to fullest extent possible Outcome: Progressing * Plan of Care - Pham Panda RN - 12/13/2022 6:23 AM CDT Goals: Clinical Goals for the Shift: safety vs comfort Summary: Patient oriented to self. Vitals remain stable. Joy remains in place with adequate output. Patient able to voice needs. No acute events this shift. Care ongoing. * Plan of Care - Kanika Briones RN - 12/12/2022 12:18 AM CDT Goals: Clinical Goals for the Shift: comfort, safety,stable vs Problem: Lack of Knowledge Goal: Knowledge of disease or condition will improve Outcome: Not Progressing Problem: Lack of Knowledge: Goal: Ability to state ways to decrease the risk of falls will improve Outcome: Not Progressing Problem: Safety: Goal: Will remain free from falls Outcome: Not Progressing Goal: Will remain free from injury from falls Outcome: Not Progressing Goal: Will remain free from falls and injury in home environment Outcome: Not Progressing Problem: Activity: Goal: Mobility will improve Outcome: Not Progressing Problem: Lack of Knowledge: Goal: Understanding of ways to prevent future skin breakdown will improve Outcome: Not Progressing Goal: Ability to identify appropriate dietary choices will improve Outcome: Not Progressing Problem: Nutritional: Goal: Dietary intake will improve Outcome: Not Progressing Goal: Ability to maintain a balanced intake and output will improve Outcome: Not Progressing Problem: Skin Integrity: Goal: Risk for impaired skin integrity will decrease Outcome: Not Progressing Goal: Ability to demonstrate warm and dry skin will improve Outcome: Not Progressing Goal: Circulation will improve to fullest extent possible Outcome: Not Progressing Problem: Health Behavior: Goal: Understanding of discharge needs will improve Outcome: Not Progressing Summary: Pt a bit more alert than she was last night. Orientation has increased. Pt used BSC while guests were present and encouraging. Prior, it was noted that pt had approx 400cc retained. Joy placed for strict I/O and possible retention issues. Pt continues to rest most of the shift without complaint or concern. * Plan of Care - Eleni An RN - 12/11/2022 3:41 PM CDT [facility] will need to be contacted regarding initial visit for IV infusion before being discharged. Eleni An RN, BSN Case Management [phone] * Plan of Care - Jonathon Mcgregor LMSW - 12/11/2022 3:10 PM CDT Pt is set up with [facility] infusion. Pt is able to return home per case management. AKASH Stephen Incinerator Attendant Case Management 12/11/22 3:10 PM * Plan of Care - Eleni An RN - 12/11/2022 1:45 PM CDT CM met with patient to discuss discharge plan. Patient is to resume [facility] for home infusion and therapy. Patient states she has not heard from [facility] as to when they will be able to come out. IMM given. Patient mentioned that she was little dizzy today. SW is following patient for discharge. CM will continue to follow and assist with discharge planning. Eleni An RN, BSN Case Management [phone] * Plan of Care - Kanika Briones RN - 12/10/2022 10:29 PM CDT Goals: Clinical Goals for the Shift: comfort, safety,stable vs Problem: Lack of Knowledge Goal: Knowledge of disease or condition will improve Outcome: Not Progressing Problem: Lack of Knowledge: Goal: Ability to state ways to decrease the risk of falls will improve Outcome: Not Progressing Problem: Safety: Goal: Will remain free from falls Outcome: Not Progressing Goal: Will remain free from injury from falls Outcome: Not Progressing Goal: Will remain free from falls and injury in home environment Outcome: Not Progressing Problem: Activity: Goal: Mobility will improve Outcome: Not Progressing Problem: Lack of Knowledge: Goal: Understanding of ways to prevent future skin breakdown will improve Outcome: Not Progressing Goal: Ability to identify appropriate dietary choices will improve Outcome: Not Progressing Problem: Nutritional: Goal: Dietary intake will improve Outcome: Not Progressing Goal: Ability to maintain a balanced intake and output will improve Outcome: Not Progressing Problem: Skin Integrity: Goal: Risk for impaired skin integrity will decrease Outcome: Not Progressing Goal: Ability to demonstrate warm and dry skin will improve Outcome: Not Progressing Goal: Circulation will improve to fullest extent possible Outcome: Not Progressing Problem: Health Behavior: Goal: Understanding of discharge needs will improve Outcome: Not Progressing Summary: Pt not able to express needs at this time. Very lethargic and just wanting to rest. Not fully oriented but cooperative with care. * Plan of Care - Clary Moreno RN - 12/10/2022 9:11 AM CDT Goals: Clinical Goals for the Shift: comfort, safety,stable vs Summary: Patient resting in bed, vs stable. Not wanting to eat this morning. Orientated to self only, with no complaints at this time. Plan of care continues. Problem: Lack of Knowledge Goal: Knowledge of disease or condition will improve Outcome: Progressing Problem: Lack of Knowledge: Goal: Ability to state ways to decrease the risk of falls will improve Outcome: Progressing Problem: Safety: Goal: Will remain free from falls Outcome: Progressing Goal: Will remain free from injury from falls Outcome: Progressing Goal: Will remain free from falls and injury in home environment Outcome: Progressing Problem: Activity: Goal: Mobility will improve Outcome: Progressing Problem: Lack of Knowledge: Goal: Understanding of ways to prevent future skin breakdown will improve Outcome: Progressing Goal: Ability to identify appropriate dietary choices will improve Outcome: Progressing Problem: Nutritional: Goal: Dietary intake will improve Outcome: Progressing Goal: Ability to maintain a balanced intake and output will improve Outcome: Progressing Problem: Skin Integrity: Goal: Risk for impaired skin integrity will decrease Outcome: Progressing Goal: Ability to demonstrate warm and dry skin will improve Outcome: Progressing Goal: Circulation will improve to fullest extent possible Outcome: Progressing Problem: Health Behavior: Goal: Understanding of discharge needs will improve Outcome: Progressing * Plan of Care - Mickey Felix RN - 12/10/2022 5:50 AM CDT Problem: Lack of Knowledge Goal: Knowledge of disease or condition will improve Outcome: Progressing Problem: Lack of Knowledge: Goal: Ability to state ways to decrease the risk of falls will improve Outcome: Progressing Problem: Safety: Goal: Will remain free from falls Outcome: Progressing Problem: Safety: Goal: Will remain free from injury from falls Outcome: Progressing Problem: Safety: Goal: Will remain free from falls and injury in home environment Outcome: Progressing Problem: Activity: Goal: Mobility will improve Outcome: Progressing Problem: Lack of Knowledge: Goal: Understanding of ways to prevent future skin breakdown will improve Outcome: Progressing Problem: Nutritional: Goal: Ability to maintain a balanced intake and output will improve Outcome: Progressing Problem: Health Behavior: Goal: Understanding of discharge needs will improve Outcome: Progressing Goals: Clinical Goals for the Shift: pt to remain free from falls stable vital signs Summary: * Plan of Pee - Indira Nicole RN - 12/09/2022 3:48 PM CDT Goals: Clinical Goals for the Shift: safety vs comfort Summary: Problem: Lack of Knowledge Goal: Knowledge of disease or condition will improve Outcome: Progressing Problem: Lack of Knowledge: Goal: Ability to state ways to decrease the risk of falls will improve Outcome: Progressing Problem: Safety: Goal: Will remain free from falls Outcome: Progressing Goal: Will remain free from injury from falls Outcome: Progressing Goal: Will remain free from falls and injury in home environment Outcome: Progressing Problem: Activity: Goal: Mobility will improve Outcome: Progressing Problem: Lack of Knowledge: Goal: Understanding of ways to prevent future skin breakdown will improve Outcome: Progressing Goal: Ability to identify appropriate dietary choices will improve Outcome: Progressing Problem: Nutritional: Goal: Dietary intake will improve Outcome: Progressing Goal: Ability to maintain a balanced intake and output will improve Outcome: Progressing Problem: Skin Integrity: Goal: Risk for impaired skin integrity will decrease Outcome: Progressing Goal: Ability to demonstrate warm and dry skin will improve Outcome: Progressing Goal: Circulation will improve to fullest extent possible Outcome: Progressing Problem: Health Behavior: Goal: Understanding of discharge needs will improve Outcome: Progressing * Plan of Care - Bertha Lynch RN - 12/09/2022 11:07 AM CDT CM assisting SW as pt/dtr declining SNF placement. Goal to return home & resume [facility] & [facility] HHRN/PT/OT to continue Ceftriaxone 2 G IV daily until 12/23. Order pended for MD review/sign & SW to send referral to [facility] for resumption of services. BEKA Fonseca-ALIREZA [facility] [phone] * Plan of Care - Jose Fuller RN - 12/09/2022 6:29 AM CDT Problem: Lack of Knowledge Goal: Knowledge of disease or condition will improve Outcome: Progressing Problem: Lack of Knowledge: Goal: Ability to state ways to decrease the risk of falls will improve Outcome: Progressing Problem: Safety: Goal: Will remain free from falls Outcome: Progressing Goal: Will remain free from injury from falls Outcome: Progressing Goal: Will remain free from falls and injury in home environment Outcome: Progressing Problem: Activity: Goal: Mobility will improve Outcome: Progressing Problem: Lack of Knowledge: Goal: Understanding of ways to prevent future skin breakdown will improve Outcome: Progressing Goal: Ability to identify appropriate dietary choices will improve Outcome: Progressing Problem: Nutritional: Goal: Dietary intake will improve Outcome: Progressing Goal: Ability to maintain a balanced intake and output will improve Outcome: Progressing Problem: Skin Integrity: Goal: Risk for impaired skin integrity will decrease Outcome: Progressing Goal: Ability to demonstrate warm and dry skin will improve Outcome: Progressing Goal: Circulation will improve to fullest extent possible Outcome: Progressing Problem: Health Behavior: Goal: Understanding of discharge needs will improve Outcome: Progressing Goals: Clinical Goals for the Shift: safety vs comfort Summary Patient was turned, vancomycin was commenced. * Initial Assessments - Jonathon Mcgregor LMSW - 12/08/2022 2:32 PM CDT MACHINING TECHNICIAN and SDOH completed with pt's daughter, Areli. She indicated that the pt lives at home with her. Her goal is that the pt will return home with HH. She does not trust the pt will get the care sheneeds at a SNF. Every time she sends the pt to a SNF the pt DCs worse than when she went in. She will take the pt home. HYDRAULIC GOVERNOR ASSEMBLER will continue to follow. CM/SW Assessment: Information Obtained From: Adult child (12/08/22 2249) Prior to Admission: Functional Status: Moderate assist with ADLs Primary Caregiver: Family Who does the patient or legal guardian want to receive education instruction and discharge plans for after care assistance?: Name Caregiver Name: Areli Gayle Relationship to patient: Daughter Caregiver Contact Information: [phone] (H) Support System: Children Home Care Services: Yes Type of Home Care Services: Home therapies, Nurse visit Home care service name and 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: [facility] Durable Medical Equipment: Walker (wheeled), Shower chair, Home Modification Assessment (railes in bathroom) Living Arrangements: Children Type of Residence: Private residence Steps in home?: Yes, Outside of home Number of steps outside: 3 steps (3) (12/06/22 1830) SDOH Financial Resource: How hard is it for you to pay for the very basics like food, housing, medical care, and heating?: Not hard at all (12/08/22 1431) Transportation: In the past 12 months, has lack of transportation kept you from medical appointments or from getting medications?: No In the past 12 months, has lack of transportation kept you from meetings, work, or from getting things needed for daily living?: No (12/08/22 1431) Social Connection: In a typical week, how many times do you talk on the phone with family, friends, or neighbors?: More than three times a week How often do you get together with friends or relatives?: More than three times a week How often do you attend advent or islam services?: Never Do you belong to any clubs or organizations such as advent groups, unions, fraternal or athletic groups, or school groups?: No How often do you attend meetings of the clubs or organizations you belong to?: Never Are you , , , , never , or living with a partner?: (12/08/221430) Food Insecurity: Within the past 12 months, you worried that your food would run out before you got the money to buymore.: Never true Within the past 12 months, the food you bought just didn't last and you didn't have money to get more.: Never true (12/08/221430) Housing: In the last 12 months, was there a time when you were not able to pay the mortgage or rent on time?: No In the last 12 months, how many places have you lived?: 1 In the last 12 months, was there a time when you did not have a steady place to sleep or slept in ashelter (including now)?: No (12/08/221431) AKASH Stephen [employer] Attendant Case Management 12/08/22 2:36 PM * Plan of Care - Jose Fuller RN - 12/08/2022 6:41 AM CDT Problem: Lack of Knowledge Goal: Knowledge of disease or condition will improve Outcome: Progressing Problem: Lack of Knowledge: Goal: Ability to state ways to decrease the risk of falls will improve Outcome: Progressing Problem: Safety: Goal: Will remain free from falls Outcome: Progressing Goal: Will remain free from injury from falls Outcome: Progressing Goal: Will remain free from falls and injury in home environment Outcome: Progressing Problem: Activity: Goal: Mobility will improve Outcome: Progressing Problem: Lack of Knowledge: Goal: Understanding of ways to prevent future skin breakdown will improve Outcome: Progressing Goal: Ability to identify appropriate dietary choices will improve Outcome: Progressing Problem: Skin Integrity: Goal: Risk for impaired skin integrity will decrease Outcome: Progressing Goal: Ability to demonstrate warm and dry skin will improve Outcome: Progressing Goal: Circulation will improve to fullest extent possible Outcome: Progressing Problem: Health Behavior: Goal: Understanding of discharge needs will improve Outcome: Progressing Goals: Clinical Goals for the Shift: safety vs comfort Summary Patient had a good night sleep. * Plan of Care - Jose Fuller RN - 12/07/2022 6:13 AM CDT Problem: Lack of Knowledge Goal: Knowledge of disease or condition will improve Outcome: Progressing Problem: Lack of Knowledge: Goal: Ability to state ways to decrease the risk of falls will improve Outcome: Progressing Problem: Safety: Goal: Will remain free from falls Outcome: Progressing Goal: Will remain free from injury from falls Outcome: Progressing Goal: Will remain free from falls and injury in home environment Outcome: Progressing Problem: Activity: Goal: Mobility will improve Outcome: Progressing Problem: Lack of Knowledge: Goal: Understanding of ways to prevent future skin breakdown will improve Outcome: Progressing Goal: Ability to identify appropriate dietary choices will improve Outcome: Progressing Problem: Nutritional: Goal: Dietary intake will improve Outcome: Progressing Goal: Ability to maintain a balanced intake and output will improve Outcome: Progressing Problem: Skin Integrity: Goal: Risk for impaired skin integrity will decrease Outcome: Progressing Goal: Ability to demonstrate warm and dry skin will improve Outcome: Progressing Goal: Circulation will improve to fullest extent possible Outcome: Progressing Problem: Health Behavior: Goal: Understanding of discharge needs will improve Outcome: Progressing Goals: Clinical Goals for the Shift: safety vs comfort Summary Patient will be consulted by infectious disease, podiatry, cardiology, nephrology, and wound and ostomy. On Q6hrly bladder scan. Slept fairly well. * Plan of Care - Cricket Nicole RN - 12/06/2022 6:54 PM CDT Problem: Lack of Knowledge Goal: Knowledge of disease or condition will improve Outcome: Progressing Problem: Lack of Knowledge: Goal: Ability to state ways to decrease the risk of falls will improve Outcome: Progressing Problem: Safety: Goal: Will remain free from falls Outcome: Progressing Goal: Will remain free from injury from falls Outcome: Progressing Goal: Will remain free from falls and injury in home environment Outcome: Progressing Problem: Activity: Goal: Mobility will improve Outcome: Progressing Problem: Lack of Knowledge: Goal: Understanding of ways to prevent future skin breakdown will improve Outcome: Progressing Goal: Ability to identify appropriate dietary choices will improve Outcome: Progressing Problem: Nutritional: Goal: Dietary intake will improve Outcome: Progressing Goal: Ability to maintain a balanced intake and output will improve Outcome: Progressing Problem: Skin Integrity: Goal: Risk for impaired skin integrity will decrease Outcome: Progressing Goal: Ability to demonstrate warm and dry skin will improve Outcome: Progressing Goal: Circulation will improve to fullest extent possible Outcome: Progressing documented in this encounter Plan of Treatment Upcoming Encounters Date Type Department Care Team (Latest Contact Info) Description 07/13/2024 9:00 AM ESTIMATOR JEWELRY Hospital Encounter [facility] [address] [place] [id number] Jaya Grier MD [facility] [address] GA[address] [place] [phone] 07/13/2024 9:00 AM ESTIMATOR JEWELRY - 07/13/2024 9:30 AM ESTIMATOR JEWELRY Surgery [facility] [address] [place] [phone] Jaya Grier MD [facility] [address] [place] [phone] ESOPHAGOGASTRODUODENOSCOPY Scheduled Procedures Name Priority Associated Diagnoses Date/Ti al ESOPHAGOGASTRODUODENOSCOPY Anemia, unspecified type Gastritis without bleeding, unspecified chronicity, unspecified gastritis type 07/13/2024 9:00 AM ESTIMATOR JEWELRY COLONOSCOPY Iron deficiency anemia due to chronic blood loss Scheduled Referrals Name Type Priority Associated Diagnoses Order Schedule Ambulatory referral to Home Health Outpatient Referral Routine Osteomyelitis of great toe of right foot (CMS/HCC) (HCC) Expected: 12/10/2022, Expires: 06/10/2023 Ambulatory referral to Home Health Outpatient Referral Routine Shortness of breath Acute systolic congestive heart failure (CMS/HCC) (HCC) Osteomyelitis of great toe of right foot (CMS/HCC) (HCC) Amputation of toe of right foot (CMS/HCC) (HCC) 1 Occurrences starting 12/13/2022 until 06/13/2023 documented as of this encounter Procedures Procedure Name Priority Date/Time Associated Diagnosis Comments POCT GLUCOSE DEVICE Routine 12/18/2022 8 :50 PM CDT POCT GLUCOSE DEVICE Routine 12/18/2022 5 :21 PM CDT POCT GLUCOSE DEVICE Routine 12/18/2022 1 2:15 PM CDT POCT GLUCOSE DEVICE Routine 12/18/2022 1 2:13 PM CDT POCT GLUCOSE DEVICE Routine 12/18/2022 7 :49 AM CDT EGFR Routine 12/18/2022 5:51 AM CDT DIFFERENTIAL AUTO Routine 12/18/2022 5:5 1 AM CDT CBC WITH AUTO DIFFERENTIAL Routine 12/18/2022 5:51 AM CDT MAGNESIUM Routine 12/18/2022 5:51 AM CDT RENAL FUNCTION PANEL Routine 12/18/2022 5:51 AM CDT POCT GLUCOSE DEVICE Routine 12/17/2022 8 :51 PM CDT POCT GLUCOSE DEVICE Routine 12/17/2022 5 :10 PM CDT POCT GLUCOSE DEVICE Routine 12/17/2022 1 2:09 PM CDT POCT GLUCOSE DEVICE Routine 12/17/2022 7 :18 AM CDT EGFR Routine 12/17/2022 6:02 AM CDT DIFFERENTIAL AUTO Routine 12/17/2022 6:0 2 AM CDT CBC WITH AUTO DIFFERENTIAL Routine 12/17/2022 6:02 AM CDT MAGNESIUM Routine 12/17/2022 6:02 AM CDT RENAL FUNCTION PANEL Routine 12/17/2022 6:02 AM CDT POCT GLUCOSE DEVICE Routine 12/16/2022 9 :49 PM CDT POCT GLUCOSE DEVICE Routine 12/16/2022 5 :01 PM CDT CREATINE KINASE (CK), TOTAL Routine 12/16/2022 2:08 PM CDT POCT GLUCOSE DEVICE Routine 12/16/2022 1 1:28 AM CDT POCT GLUCOSE DEVICE Routine 12/16/2022 7 :27 AM CDT EGFR Routine 12/16/2022 5:25 AM CDT DIFFERENTIAL AUTO Routine 12/16/2022 5:2 5 AM CDT CBC WITH AUTO DIFFERENTIAL Routine 12/16/2022 5:25 AM CDT MAGNESIUM Routine 12/16/2022 5:25 AM CDT RENAL FUNCTION PANEL Routine 12/16/2022 5:25 AM CDT POCT GLUCOSE DEVICE Routine 12/16/2022 2 :34 AM CDT POCT GLUCOSE DEVICE Routine 12/15/2022 8 :59 PM CDT POCT GLUCOSE DEVICE Routine 12/15/2022 5 :07 PM CDT POCT GLUCOSE DEVICE Routine 12/15/2022 1 2:02 PM CDT POCT GLUCOSE DEVICE Routine 12/15/2022 7 :51 AM CDT EGFR Routine 12/15/2022 5:53 AM CDT MAGNESIUM Routine 12/15/2022 5:53 AM CDT RENAL FUNCTION PANEL Routine 12/15/2022 5:53 AM CDT DIFFERENTIAL AUTO Routine 12/15/2022 5:5 2 AM CDT CBC WITH AUTO DIFFERENTIAL Routine 12/15/2022 5:52 AM CDT POCT GLUCOSE DEVICE Routine 12/15/2022 2 :17 AM CDT POCT GLUCOSE DEVICE Routine 12/14/2022 8 :59 PM CDT POCT GLUCOSE DEVICE Routine 12/14/2022 4 :59 PM CDT POCT GLUCOSE DEVICE Routine 12/14/2022 1 2:34 PM CDT POCT GLUCOSE DEVICE Routine 12/14/2022 8 :05 AM CDT EGFR Routine 12/14/2022 5:57 AM CDT MAGNESIUM Routine 12/14/2022 5:57 AM CDT RENAL FUNCTION PANEL Routine 12/14/2022 5:57 AM CDT POCT GLUCOSE DEVICE Routine 12/13/2022 9 :24 PM CDT POCT GLUCOSE DEVICE Routine 12/13/2022 4 :47 PM CDT POCT GLUCOSE DEVICE Routine 12/13/2022 1 1:31 AM CDT POCT GLUCOSE DEVICE Routine 12/13/2022 7 :54 AM CDT EGFR Routine 12/13/2022 4:36 AM CDT DIFFERENTIAL AUTO Routine 12/13/2022 4:3 6 AM CDT CBC WITH AUTO DIFFERENTIAL Routine 12/13/2022 4:36 AM CDT MAGNESIUM Routine 12/13/2022 4:36 AM CDT VANCOMYCIN LEVEL RANDOM Timed 12/13/2022 4:36 AM CDT RENAL FUNCTION PANEL Routine 12/13/2022 4:36 AM CDT POCT GLUCOSE DEVICE Routine 12/12/2022 8 :09 PM CDT POCT GLUCOSE DEVICE Routine 12/12/2022 5 :03 PM CDT POCT GLUCOSE DEVICE Routine 12/12/2022 1 1:30 AM CDT POCT GLUCOSE DEVICE Routine 12/12/2022 7 :24 AM CDT AEROBIC AND ANAEROBIC CULTURE AND GRAM STAIN Routine 12/12/2022 6:15 AM CDT URINALYSIS AND REFLEX TO MICROSCOPIC AND CULTURE Routine 12/11/2022 10:35 PM CDT URINALYSIS, MICROSCOPIC ONLY Routine 12/11/2022 10:35 PM CDT URINE CULTURE Routine 12/11/2022 10:35 PM CDT BLOOD CULTURE Routine 12/11/2022 10:30 PM CDT EGFR Routine 12/11/2022 10:26 PM CDT DIFFERENTIAL AUTO Routine 12/11/2022 10: 26 PM CDT CBC WITH AUTO DIFFERENTIAL Routine 12/11/2022 10:26 PM CDT MAGNESIUM Routine 12/11/2022 10:26 PM CDT RENAL FUNCTION PANEL Routine 12/11/2022 10:26 PM CDT POCT GLUCOSE DEVICE Routine 12/11/2022 7 :48 PM CDT POCT GLUCOSE DEVICE Routine 12/11/2022 6 :01 PM CDT POCT GLUCOSE DEVICE Routine 12/11/2022 5 :25 PM CDT POCT GLUCOSE DEVICE Routine 12/11/2022 5 :06 PM CDT POCT GLUCOSE DEVICE Routine 12/11/2022 4 :54 PM CDT POCT GLUCOSE DEVICE Routine 12/11/2022 1 :00 PM CDT POCT GLUCOSE DEVICE Routine 12/11/2022 8 :11 AM CDT EGFR Routine 12/11/2022 5:09 AM CDT DIFFERENTIAL AUTO Routine 12/11/2022 5:0 9 AM CDT CBC WITH AUTO DIFFERENTIAL Routine 12/11/2022 5:09 AM CDT MAGNESIUM Routine 12/11/2022 5:09 AM CDT VANCOMYCIN LEVEL RANDOM Timed 12/11/2022 5:09 AM CDT RENAL FUNCTION PANEL Routine 12/11/2022 5:09 AM CDT POCT GLUCOSE DEVICE Routine 12/10/2022 7 :57 PM CDT POCT GLUCOSE DEVICE Routine 12/10/2022 5 :27 PM CDT POCT GLUCOSE DEVICE Routine 12/10/2022 1 2:12 PM CDT POCT GLUCOSE DEVICE Routine 12/10/2022 7 :26 AM CDT EGFR Routine 12/10/2022 5:42 AM CDT DIFFERENTIAL AUTO Routine 12/10/2022 5:4 2 AM CDT CBC WITH AUTO DIFFERENTIAL Routine 12/10/2022 5:42 AM CDT MAGNESIUM Routine 12/10/2022 5:42 AM CDT VANCOMYCIN LEVEL RANDOM Timed 12/10/2022 5:42 AM CDT RENAL FUNCTION PANEL Routine 12/10/2022 5:42 AM CDT POCT GLUCOSE DEVICE Routine 12/10/2022 3 :07 AM CDT POCT GLUCOSE DEVICE Routine 12/09/2022 9 :15 PM CDT POCT GLUCOSE DEVICE Routine 12/09/2022 5 :13 PM CDT VANCOMYCIN LEVEL RANDOM Timed 12/09/2022 4:52 PM CDT POCT GLUCOSE DEVICE Routine 12/09/2022 1 2:18 PM CDT POCT GLUCOSE DEVICE Routine 12/09/2022 8 :08 AM CDT EGFR Routine 12/09/2022 5:28 AM CDT DIFFERENTIAL AUTO Routine 12/09/2022 5:2 8 AM CDT CBC WITH AUTO DIFFERENTIAL Routine 12/09/2022 5:28 AM CDT MAGNESIUM Routine 12/09/2022 5:28 AM CDT VANCOMYCIN LEVEL RANDOM Timed 12/09/2022 5:28 AM CDT RENAL FUNCTION PANEL Routine 12/09/2022 5:28 AM CDT POCT GLUCOSE DEVICE Routine 12/09/2022 2 :55 AM CDT POCT GLUCOSE DEVICE Routine 12/08/2022 8 :20 PM CDT INFLUENZA A/B, RSV, AND COVID-19 PCR Routine 12/08/2022 7:15 PM CDT POCT GLUCOSE DEVICE Routine 12/08/2022 5 :16 PM CDT TRANSTHORACIC ECHO (TTE) COMPLETE W DOPPLER/CF WO CONTRAST Routine 12/08/2022 3:30 PM CDT POCT GLUCOSE DEVICE Routine 12/08/2022 1 2:22 PM CDT EGFR Routine 12/08/2022 8:01 AM CDT DIFFERENTIAL AUTO Routine 12/08/2022 8:0 1 AM CDT CBC WITH AUTO DIFFERENTIAL Routine 12/08/2022 8:01 AM CDT MAGNESIUM Routine 12/08/2022 8:01 AM CDT RENAL FUNCTION PANEL Routine 12/08/2022 8:01 AM CDT POCT GLUCOSE DEVICE Routine 12/08/2022 7 :35 AM CDT POCT GLUCOSE DEVICE Routine 12/08/2022 2 :28 AM CDT URINALYSIS AND REFLEX TO MICROSCOPIC Routine 12/07/2022 9:08 PM CDT PROTEIN / CREATININE RATIO, URINE, RANDOM Routine 12/07/2022 9:08 PM CDT URINALYSIS, MICROSCOPIC ONLY Routine 12/07/2022 9:08 PM CDT POCT GLUCOSE DEVICE Routine 12/07/2022 8 :52 PM CDT POCT GLUCOSE DEVICE Routine 12/07/2022 5 :25 PM CDT XR CHEST PA LATERAL 2 VIEWS IP Routine 12/07/2022 2:25 PM CDT POCT GLUCOSE DEVICE Routine 12/07/2022 1 2:21 PM CDT POCT GLUCOSE DEVICE Routine 12/07/2022 8 :25 AM CDT TROPONIN T HIGH-SENSITIVITY STAT 12/07/2022 12:24 AM CDT POCT GLUCOSE DEVICE Routine 12/06/2022 8 :07 PM CDT TROPONIN T HIGH-SENSITIVITY 2-HOUR Timed 12/06/2022 4:29 PM CDT XR CHEST 1 VIEW ED 12/06/2022 3:50 PM CDT POCT GLUCOSE DEVICE Routine 12/06/2022 2 :52 PM CDT TROPONIN T HIGH-SENSITIVITY SERIES (BASELINE, 2HR, 4HR, 6HR) STAT 12/06/2022 2:51 PM CDT EGFR STAT 12/06/2022 2:51 PM CDT DIFFERENTIAL AUTO STAT 12/06/2022 2:5 1 PM CDT PRO B-TYPE NATRIURETIC PEPTIDE STAT 12/06/2022 2:51 PM CDT CBC WITH AUTO DIFFERENTIAL STAT 12/06/2022 2:51 PM CDT COMPREHENSIVE METABOLIC PANEL STAT 12/06/2022 2:51 PM CDT ECG 12-LEAD STAT 12/06/2022 2:06 PM CDT documented in this encounter Results * (ABNORMAL) POCT glucose (12/18/2022 8:50 PM CDT) Glucose, POC 305(H) 70 - 199 mg/dL [facility] Blood 12/18/2022 8:50 PM CDT 12/18/2022 8:50 PM CDT Larry Dennis MD LAB POCT ORDERABLES - DEVICE Fi nal Result Performing Organization Address [facility] Co de Phone Number NILSA MCDONNELL [phone] [address] [facility] [place] [address] * (ABNORMAL) POCT glucose (12/18/2022 5:21 PM CDT) Glucose, POC 247(H) 70 - 199 mg/dL [facility] Blood 12/18/2022 5:21 PM CDT 12/18/2022 5:21 PM CDT Larry Dennis MD LAB POCT ORDERABLES - DEVICE Fi nal Result Performing Organization Address [facility] de Phone Number CARLOS ENRIQUEELLEN MCDONNELL [phone] [address] [facility] [place] [address] * (ABNORMAL) POCT glucose (12/18/2022 12:15 PM CDT) Glucose, POC 242(H) 70 - 199 mg/dL [facility] Blood 12/18/2022 12:1 5 PM CDT 12/18/2022 12:15 PM CDT Larry Dennis MD LAB POCT ORDERABLES - DEVICE Fi nal Result Performing Organization Address [facility] Co de Phone Number CARLOS ENRIQUEELLEN MCDONNELL [phone] [address] [facility] [place] [address] * (ABNORMAL) POCT glucose (12/18/2022 12:13 PM CDT) Glucose, POC 255(H) 70 - 199 mg/dL [facility] Blood 12/18/2022 12:1 3 PM CDT 12/18/2022 12:13 PM CDT Larry Dennis MD LAB POCT ORDERABLES - DEVICE Fi nal Result Performing Organization Address [facility] Co de Phone Number [facility] [phone] [address] [facility] [place] [address] * POCT glucose (12/18/2022 7:49 AM CDT) Glucose, POC 133 70 - 199 mg/dL [facility] Blood 12/18/2022 7:49 AM CDT 12/18/2022 7:49 AM CDT Larry Dennis MD LAB POCT ORDERABLES - DEVICE Fi nal Result Performing Organization Address [facility] de Phone Number [facility] [phone] [place] [address] * eGFR (12/18/2022 5:51 AM CDT) eGFR 21 mL/min/1. 73 m2 [facility] Comment: Interpretive Data Reference Interval Normal ?>/= [...] interpretive data was last reviewed 2021. Blood 12/18/2022 5:51 AM CDT 12/18/2022 6:10 AM CDT us Robert Hernandez MD LAB BLOOD ORDERABLES F inal Result [facility] [id number] [address] [place] [address] * (ABNORMAL) Differential, auto (12/18/2022 5:51 AM CDT) Neutrophil abs 6.4 1.7 - 6.5 K/cumm [facility] Imm gran abs 0.0 0.0 - 0.1 K/cumm [facility] Lymphocyte abs 3.2 0.8 - 3.3 K/cumm [facility] Monocyte abs 1.0(H) 0.2 - 0.8 K/cumm [facility] Eosinophil abs 0.3 0.0 - 0.5 K/cumm [facility] Basophil abs 0.1 0.0 - 0.1 K/cumm [facility] Neutrophil pct 58.6 % [facility] Comment: Interpretive Data Percent cell count reference ranges are not reported, since discordance with absolute values may lead to misinterpretation of CBC data. Current Interpretive Data was last revised on 2017. Imm gran pct 0.4 % [facility] Comment: Interpretive Data Percent cell count reference ranges are not reported, since discordance with absolute values may lead to misinterpretation of CBC data. Current Interpretive Data was last revised on 2017. Lymphocyte pct 29.1 % [facility] Comment: Interpretive Data Percent cell count reference ranges are not reported, since discordance with absolute values may lead to misinterpretation of CBC data. Current Interpretive Data was last revised on 2017. Monocyte pct 8.9 % [facility] Comment: Interpretive Data Percent cell count reference ranges are not reported, since discordance with absolute values may lead to misinterpretation of CBC data. Current Interpretive Data was last revised on 2017. Eosinophil pct 2.4 % [facility] Comment: Interpretive Data Percent cell count reference ranges are not reported, since discordance with absolute values may lead to misinterpretation of CBC data. Current Interpretive Data was last revised on 2017. Basophil pct 0.6 % [facility] Comment: Interpretive Data Percent cell count reference ranges are not reported, since discordance with absolute values may lead to misinterpretation of CBC data. Current Interpretive Data was last revised on 2017. Blood 12/18/2022 5:51 AM CDT 12/18/2022 6:10 AM CDT Robert Hernandez MD LAB BLOOD ORDERABLES F inal Result Performing Organization Address [facility] [place]/[facility] Co de Phone Number [facility] [phone] [address] [facility] [employer] [place], [place] [id number] * Magnesium (12/18/2022 5:51 AM CDT) Pathologist [facility] Magnesium 2.1 1.4 - 2.5 mg/dL [facility] Blood 12/18/2022 5:51 AM CDT 12/18/2022 6:10 AM CDT Robert Hernandez MD LAB BLOOD ORDERABLES F inal Result Performing Organization Address [facility] Co de Phone Number [facility] [phone] [address] [facility] [place] [address] * (ABNORMAL) Renal function panel (12/18/2022 5:51 AM CDT) Sodium 140 135 - 145 mmol/L [facility] Potassium, pl 4.1 3.3 - 4.9 mmol/L [facility] Chloride 104 97 - 110 mmol/L [facility] CO2 21(L) 22 - 32 mmol/L [facility] Anion gap 15 2 - 15 mmol/L [facility] BUN 61(H) 6 - 25 mg/dL [facility] Creatinine 2.37(H) 0.60 - 1.10 mg/dL [facility] Glucose 152 70 - 199 mg/dL [facility] Comment: [...] 2022. Calcium 9.5 8.5 - 10.3 mg/dL [facility] Phosphorus, pl 4.9(H) 2.3 - 4.5 mg/dL [facility] Albumin 2.5(L) 3.5 - 5.0 g/dL [facility] Blood 12/18/2022 5:51 AM CDT 12/18/2022 6:10 AM CDT us Robert Hernandez MD LAB BLOOD ORDERABLES F inal Result [facility] [id number] [address] [place] [address] * (ABNORMAL) CBC with auto differential (12/18/2022 5:51 AM CDT) WBC 10.9(H) 3.8 - 9.9 K/cumm [facility] Hgb 9.6(L) 11.9 - 15.5 g/dL [facility] Hct 30.6(L) 35.6 - 45.5 % [facility] Plt 316 150 - 400 K/cumm [facility] MPV 11.1 9.1 - 12.3 fL [facility] RBC 3.21(L) 3.90 - 5.20 M/cumm [facility] MCV 95.3 81.3 - 96.4 fL [facility] MCH 29.9 27.1 - 33.3 pg [facility] MCHC 31.4(L) 32.3 - 35.7 g/dL [facility] RDW CV 16.1(H) 11.1 - 14.9 % [facility] RDW SD 57.0(H) 35.7 - 48.1 fL [facility] NRBC abs 0.00 0.00 - 0.01 K/cumm [facility] Blood 12/18/2022 5:51 AM CDT 12/18/2022 6:10 AM CDT Robert Hernandez MD LAB BLOOD ORDERABLES F inal Result Performing Organization Address [facility] de Phone Number [facility] [phone] [address] [facility] [place] [address] * (ABNORMAL) POCT glucose (12/17/2022 8:51 PM CDT) Glucose, POC 206(H) 70 - 199 mg/dL [facility] Blood 12/17/2022 8:51 PM CDT 12/17/2022 8:51 PM CDT Larry Dennis MD LAB POCT ORDERABLES - DEVICE Fi nal Result Performing Organization Address [facility]/[facility] de Phone Number [facility] [address] [place] [address] * (ABNORMAL) POCT glucose (12/17/2022 5:10 PM CDT) Glucose, POC 225(H) 70 - 199 mg/dL [facility] Blood 12/17/2022 5:10 PM CDT 12/17/2022 5:10 PM CDT Larry Dennis MD LAB POCT ORDERABLES - DEVICE Fi nal Result Performing Organization Address [facility] de Phone Number NILSA MCDONNELL [address] [address] [facility] [place] [address] * (ABNORMAL) POCT glucose (12/17/2022 12:09 PM CDT) Glucose, POC 227(H) 70 - 199 mg/dL [facility] Blood 12/17/2022 12:0 9 PM CDT 12/17/2022 12:09 PM CDT Larry Dennis MD LAB POCT ORDERABLES - DEVICE Fi nal Result Performing Organization Address [facility] de Phone Number NILSA [phone] [address] [facility] [place] [address] * POCT glucose (12/17/2022 7:18 AM CDT) Glucose, POC 194 70 - 199 mg/dL [facility] Blood 12/17/2022 7:18 AM CDT 12/17/2022 7:18 AM CDT Larry Dennis MD LAB POCT ORDERABLES - DEVICE Fi nal Result Performing Organization Address [facility] de Phone Number NILSA MCDONNELL [address] [address] [facility] [place] [address] * eGFR (12/17/2022 6:02 AM CDT) eGFR 22 mL/min/1. 73 m2 [facility] Comment: Interpretive Data Reference Interval Normal ?>/= [...] interpretive data was last reviewed 2021. Blood 12/17/2022 6:02 AM CDT 12/17/2022 6:30 AM CDT us Robert Hernandez MD LAB BLOOD ORDERABLES F inal Result [facility] [address] [address] Department [place] [address] * (ABNORMAL) Differential, auto (12/17/2022 6:02 AM CDT) Neutrophil abs 6.4 1.7 - 6.5 K/cumm [facility] Imm gran abs 0.0 0.0 - 0.1 K/cumm [facility] Lymphocyte abs 3.0 0.8 - 3.3 K/cumm [facility] Monocyte abs 1.0(H) 0.2 - 0.8 K/cumm [facility] Eosinophil abs 0.3 0.0 - 0.5 K/cumm [facility] Basophil abs 0.1 0.0 - 0.1 K/cumm [facility] Neutrophil pct 59.7 % NILSA Comment: Interpretive Data Percent cell [...] was last revised on 2017. Lymphocyte pct 27.8 % [facility] Comment: Interpretive Data Percent cell count reference ranges are not reported, since discordance with absolute values may lead to misinterpretation of CBC data. Current Interpretive Data was last revised on 2017. Monocyte pct 9.1 % [facility] Comment: Interpretive Data Percent cell count reference ranges are not reported, since discordance with absolute values may lead to misinterpretation of CBC data. Current Interpretive Data was last revised on 2017. Eosinophil pct 2.5 % [facility] Comment: Interpretive Data Percent cell count reference ranges are not reported, since discordance with absolute values may lead to misinterpretation of CBC data. Current Interpretive Data was last revised on 2017. Basophil pct 0.5 % [facility] Comment: Interpretive Data Percent cell count reference ranges are not reported, since discordance with absolute values may lead to misinterpretation of CBC data. Current Interpretive Data was last revised on 2017. Blood 12/17/2022 6:02 AM CDT 12/17/2022 6:30 AM CDT Robert Hernandez MD LAB BLOOD ORDERABLES F inal Result Performing Organization Address City/[facility] Co de Phone Number [facility] [id number] [place] [address] * Magnesium (12/17/2022 6:02 AM CDT) Magnesium 2.2 1.4 - 2.5 mg/dL [facility] Blood 12/17/2022 6:02 AM CDT 12/17/2022 6:30 AM CDT Robert Hernandez MD LAB BLOOD ORDERABLES F inal Result Performing Organization Address City/[facility] Co de Phone Number [facility] [address] [place] [address] * (ABNORMAL) Renal function panel (12/17/2022 6:02 AM CDT) Sodium 142 135 - 145 mmol/L [facility] Potassium, pl 4.4 3.3 - 4.9 mmol/L [facility] Chloride 107 97 - 110 mmol/L [facility] CO2 24 22 - 32 mmol/L [facility] Anion gap 11 2 - 15 mmol/L [facility] BUN 53(H) 6 - 25 mg/dL [facility] Creatinine 2.26(H) 0.60 - 1.10 mg/dL [facility] Glucose 202(H) 70 - 199 mg/dL [facility] Comment: [...] 2022. Calcium 9.3 8.5 - 10.3 mg/dL [facility] Phosphorus, pl 4.8(H) 2.3 - 4.5 mg/dL [facility] Albumin 2.7(L) 3.5 - 5.0 g/dL [facility] Blood 12/17/2022 6:02 AM CDT 12/17/2022 6:30 AM CDT Robert Hernandez MD LAB BLOOD ORDERABLES F inal Result [facility] [address] [place] [address] * (ABNORMAL) CBC with auto differential (12/17/2022 6:02 AM CDT) WBC 10.7(H) 3.8 - 9.9 K/cumm [facility] Hgb 8.8(L) 11.9 - 15.5 g/dL [facility] Hct 28.5(L) 35.6 - 45.5 % [facility] Plt 314 150 - 400 K/cumm [facility] MPV 11.0 9.1 - 12.3 fL [facility] RBC 2.98(L) 3.90 - 5.20 M/cumm [facility] MCV 95.6 81.3 - 96.4 fL [facility] MCH 29.5 27.1 - 33.3 pg [facility] MCHC 30.9(L) 32.3 - 35.7 g/dL [facility] RDW CV 16.3(H) 11.1 - 14.9 % [facility] RDW SD 57.3(H) 35.7 - 48.1 fL [facility] NRBC abs 0.02(H) 0.00 - 0.01 K[facility]umm [facility] Blood 12/17/2022 6:02 AM CDT 12/17/2022 6:30 AM CDT Robert Hernandez MD LAB BLOOD ORDERABLES F inal Result Performing Organization Address [facility]/ZIP Co de Phone Number NILSA MCDONNELL [address] [place] [address] * POCT glucose (12/16/2022 9:49 PM CDT) Glucose, POC 197 70 - 199 mg/dL [facility] Blood 12/16/2022 9:49 PM CDT 12/16/2022 9:49 PM CDT Gill Gamboa MD LAB POCT ORDERABLES - DEVICE Final Result Performing Organization Address City/[facility]/ZIP Co de Phone Number NILSA MCDONNELL [address] [employer] [place] [address] * POCT glucose (12/16/2022 5:01 PM CDT) Glucose, POC 157 70 - 199 mg/dL [facility] Blood 12/16/2022 5:01 PM CDT 12/16/2022 5:01 PM CDT Gill Gamboa MD LAB POCT ORDERABLES - DEVICE Final Result Performing Organization Address [facility] Co de Phone Number NILSA MCDONNELL [address] [facility] [place] [address] * Creatine kinase (CK), total (12/16/2022 2:08 PM CDT) CK 180 30 - 200 Units/L [facility] Blood 12/16/2022 2:08 PM CDT 12/16/2022 2:16 PM CDT Gill Gamboa MD LAB BLOOD ORDERABLES Final Re sult Performing Organization Address [facility] Co de Phone Number NILSA MCDONNELL [address] [place] [address] * POCT glucose (12/16/2022 11:28 AM CDT) Glucose, POC 119 70 - 199 mg/dL [facility] Blood 12/16/2022 11:2 8 AM CDT 12/16/2022 11:28 AM CDT Gill Gamboa MD LAB POCT ORDERABLES - DEVICE Final Result Performing Organization Address [facility] Co de Phone Number NILSA MCDONNELL [address] [place] [address] * POCT glucose (12/16/2022 7:27 AM CDT) Glucose, POC 118 70 - 199 mg/dL [facility] Blood 12/16/2022 7:27 AM CDT 12/16/2022 7:27 AM CDT us Gill Gamboa MD LAB POCT ORDERABLES - DEVICE Final Result Performing Organization Address [facility] Co de Phone Number NILSA MCDONNELL [address] [place] [address] * eGFR (12/16/2022 5:25 AM CDT) eGFR 21 mL/min/1. 73 m2 NILSA Comment: Interpretive Data [...] interpretive data was last reviewed 2021. Blood 12/16/2022 5:25 AM CDT 12/16/2022 5:54 AM CDT us Robert Hernandez MD LAB BLOOD ORDERABLES F inal Result [facility] [address] [place] [address] * (ABNORMAL) Differential, auto (12/16/2022 5:25 AM CDT) Neutrophil abs 7.3(H) 1.7 - 6.5 K/cumm [facility] Imm gran abs 0.0 0.0 - 0.1 K/cumm [facility] Lymphocyte abs 2.6 0.8 - 3.3 K/cumm [facility] Monocyte abs 0.9(H) 0.2 - 0.8 K/cumm [facility] Eosinophil abs 0.2 0.0 - 0.5 K/cumm [facility] Basophil abs 0.0 0.0 - 0.1 K/cumm [facility] Neutrophil pct 66.2 % [facility] Comment: Interpretive Data Percent cell count reference ranges are not reported, since discordance with absolute values may lead to misinterpretation of CBC data. Current Interpretive Data was last revised on 2017. Imm gran pct 0.4 % [facility] Comment: Interpretive Data Percent cell count reference ranges are not reported, since discordance with absolute values may lead to misinterpretation of CBC data. Current Interpretive Data was last revised on 2017. Lymphocyte pct 23.2 % [facility] Comment: Interpretive Data Percent cell count reference ranges are not reported, since discordance with absolute values may lead to misinterpretation of CBC data. Current Interpretive Data was last revised on 2017. Monocyte pct 7.9 % [facility] Comment: Interpretive Data Percent cell count reference ranges are not reported, since discordance with absolute values may lead to misinterpretation of CBC data. Current Interpretive Data was last revised on 2017. Eosinophil pct 1.9 % [facility] Comment: Interpretive Data Percent cell count reference ranges are not reported, since discordance with absolute values may lead to misinterpretation of CBC data. Current Interpretive Data was last revised on 2017. Basophil pct 0.4 % [facility] Comment: Interpretive Data Percent cell count reference ranges are not reported, since discordance with absolute values may lead to misinterpretation of CBC data. Current Interpretive Data was last revised on 2017. Blood 12/16/2022 5:25 AM CDT 12/16/2022 5:52 AM CDT us Robert Hernandez MD LAB BLOOD ORDERABLES F inal Result NILSA [address] [place] [address] * Magnesium (12/16/2022 5:25 AM CDT) Magnesium 2.2 1.4 - 2.5 mg/dL [facility] Blood 12/16/2022 5:25 AM CDT 12/16/2022 5:54 AM CDT Robert Hernandez MD LAB BLOOD ORDERABLES F inal Result [facility] [address] [place] [address] * (ABNORMAL) Renal function panel (12/16/2022 5:25 AM CDT) Sodium 141 135 - 145 mmol/L [facility] Potassium, pl 4.4 3.3 - 4.9 mmol/L [facility] Chloride 107 97 - 110 mmol/L [facility] CO2 23 22 - 32 mmol/L [facility] Anion gap 11 2 - 15 mmol/L [facility] BUN 52(H) 6 - 25 mg/dL [facility] Creatinine 2.44(H) 0.60 - 1.10 mg/dL [facility] Glucose 140 70 - 199 mg/dL [facility] Comment: [...] 2022. Calcium 9.2 8.5 - 10.3 mg/dL [facility] Phosphorus, pl 4.1 2.3 - 4.5 mg/dL [facility] Albumin 2.9(L) 3.5 - 5.0 g/dL [facility] Blood 12/16/2022 5:25 AM CDT 12/16/2022 5:54 AM CDT Robert Hernandez MD LAB BLOOD ORDERABLES F inal Result NILSA MCDONNELL [address] [place] [address] * (ABNORMAL) CBC with auto differential (12/16/2022 5:25 AM CDT) WBC 11.0(H) 3.8 - 9.9 K/cumm [facility] Hgb 8.2(L) 11.9 - 15.5 g/dL [facility] Hct 27.0(L) 35.6 - 45.5 % [facility] Plt 303 150 - 400 K/cumm [facility] MPV 10.8 9.1 - 12.3 fL [facility] RBC 2.81(L) 3.90 - 5.20 M/cumm [facility] MCV 96.1 81.3 - 96.4 fL [facility] MCH 29.2 27.1 - 33.3 pg [facility] MCHC 30.4(L) 32.3 - 35.7 g/dL [facility] RDW CV 16.2(H) 11.1 - 14.9 % [facility] RDW SD 57.2(H) 35.7 - 48.1 fL [facility] NRBC abs 0.00 0.00 - 0.01 K/cumm [facility] Blood 12/16/2022 5:25 AM CDT 12/16/2022 5:52 AM CDT Robert Hernandez MD LAB BLOOD ORDERABLES F inal Result NILSA MCDONNELL [address] [place] [address] * POCT glucose (12/16/2022 2:34 AM CDT) Glucose, POC 166 70 - 199 mg/dL [facility] Blood 12/16/2022 2:34 AM CDT 12/16/2022 2:34 AM CDT Gill Gamboa MD LAB POCT ORDERABLES - DEVICE Final Result Performing Organization Address City/[facility]/ZIP Co de Phone Number NILSA [address] [facility] [place] [address] * POCT glucose (12/15/2022 8:59 PM CDT) Glucose, POC 167 70 - 199 mg/dL [facility] Blood 12/15/2022 8:59 PM CDT 12/15/2022 8:59 PM CDT Gill Gamboa MD LAB POCT ORDERABLES - DEVICE Final Result Performing Organization Address [facility] Co de Phone Number NILSA [address] [facility] [place] [address] * POCT glucose (12/15/2022 5:07 PM CDT) Glucose, POC 153 70 - 199 mg/dL [facility] Blood 12/15/2022 5:07 PM CDT 12/15/2022 5:07 PM CDT Gill Gamboa MD LAB POCT ORDERABLES - DEVICE Final Result Performing Organization Address [facility] Co de Phone Number CARLOS ENRIQUEELLEN MCDONNELL [address] [address] [facility] [place] [address] * POCT glucose (12/15/2022 12:02 PM CDT) Glucose, POC 109 70 - 199 mg/dL [facility] Blood 12/15/2022 12:0 2 PM CDT 12/15/2022 12:02 PM CDT Gill Gamboa MD LAB POCT ORDERABLES - DEVICE Final Result Performing Organization Address City/[facility]/ZIP Co de Phone Number NILSA MCDONNELL [address] [address] [facility] [place] [address] * (ABNORMAL) POCT glucose (12/15/2022 7:51 AM CDT) Glucose, POC 201(H) 70 - 199 mg/dL NILSA Blood 12/15/2022 7:51 AM CDT 12/15/2022 7:51 AM CDT Gill Gamboa MD LAB POCT ORDERABLES - DEVICE Final Result NILSA [address] [place] [address] * eGFR (12/15/2022 5:53 AM CDT) eGFR 20 mL/min/1. 73 m2 NILSA MCDONNELL Comment: Interpretive Data Reference Interval Normal ?>/= [...] interpretive data was last reviewed 2021. Blood 12/15/2022 5:53 AM CDT 12/15/2022 5:53 AM CDT Robert Hernandez MD LAB BLOOD ORDERABLES F inal Result Performing Organization Address City/[facility]/ZIP Co de Phone Number NILSA [address] [address] [place] [address] * Magnesium (12/15/2022 5:53 AM CDT) Magnesium 2.5 1.4 - 2.5 mg/dL [facility] Blood 12/15/2022 5:53 AM CDT 12/15/2022 5:53 AM CDT Robert Hernandez MD LAB BLOOD ORDERABLES F inal Result Performing Organization Address [facility] de Phone Number NILSA [address] [place] [address] * (ABNORMAL) Renal function panel (12/15/2022 5:53 AM CDT) Sodium 144 135 - 145 mmol/L [facility] Potassium, pl 4.1 3.3 - 4.9 mmol/L [facility] Chloride 112(H) 97 - 110 mmol/L [facility] CO2 22 22 - 32 mmol/L [facility] Anion gap 10 2 - 15 mmol/L [facility] BUN 53(H) 6 - 25 mg/dL [facility] Creatinine 2.51(H) 0.60 - 1.10 mg/dL [facility] Glucose 130 70 - 199 mg/dL [facility] Comment: Interpretive Data Fasting glucose >/= [...] interpretive data was last revised 2022. Calcium 9.1 8.5 - 10.3 mg/dL [facility] Phosphorus, pl 4.2 2.3 - 4.5 mg/dL [facility] Albumin 2.8(L) 3.5 - 5.0 g/dL [facility] Blood 12/15/2022 5:53 AM CDT 12/15/2022 5:53 AM CDT Robert Hernandez MD LAB BLOOD ORDERABLES F inal Result [facility] [address] Department of [facility] [place], [place] [id number] * (ABNORMAL) Differential, auto (12/15/2022 5:52 AM CDT) Neutrophil abs 6.4 1.7 - 6.5 K/cumm [facility] Imm gran abs 0.0 0.0 - 0.1 K/cumm [facility] Lymphocyte abs 2.8 0.8 - 3.3 K/cumm [facility] Monocyte abs 1.0(H) 0.2 - 0.8 K/cumm [facility] Eosinophil abs 0.3 0.0 - 0.5 K/cumm [facility] Basophil abs 0.0 0.0 - 0.1 K/cumm [facility] Neutrophil pct 61.2 % [facility] Comment: Interpretive Data Percent cell count reference ranges are not reported, since discordance with absolute values may lead to misinterpretation of CBC data. Current Interpretive Data was last revised on 2017. Imm gran pct 0.3 % [facility] Comment: Interpretive Data Percent cell count reference ranges are not reported, since discordance with absolute values may lead to misinterpretation of CBC data. Current Interpretive Data was last revised on 2017. Lymphocyte pct 26.4 % [facility] Comment: Interpretive Data Percent cell count reference ranges are not reported, since discordance with absolute values may lead to misinterpretation of CBC data. Current Interpretive Data was last revised on 2017. Monocyte pct 9.1 % [facility] Comment: Interpretive Data Percent cell count reference ranges are not reported, since discordance with absolute values may lead to misinterpretation of CBC data. Current Interpretive Data was last revised on 2017. Eosinophil pct 2.6 % [facility] Comment: Interpretive Data Percent cell [...] Data was last revised on 2017. Blood 12/15/2022 5:52 AM CDT 12/15/2022 5:52 AM CDT us Robert Hernandez MD LAB BLOOD ORDERABLES F inal Result [facility] [address] [place] [address] * (ABNORMAL) CBC with auto differential (12/15/2022 5:52 AM CDT) WBC 10.4(H) 3.8 - 9.9 K/cumm [facility] Hgb 7.8(L) 11.9 - 15.5 g/dL [facility] Hct 25.7(L) 35.6 - 45.5 % [facility] Plt 303 150 - 400 K/cumm [facility] MPV 11.1 9.1 - 12.3 fL [facility] RBC 2.64(L) 3.90 - 5.20 M/cumm [facility] MCV 97.3(H) 81.3 - 96.4 fL [facility] MCH 29.5 27.1 - 33.3 pg [facility] MCHC 30.4(L) 32.3 - 35.7 g/dL [facility] RDW CV 16.7(H) 11.1 - 14.9 % [facility] RDW SD 59.1(H) 35.7 - 48.1 fL [facility] NRBC abs 0.00 0.00 - 0.01 K/cumm [facility] Blood 12/15/2022 5:52 AM CDT 12/15/2022 5:52 AM CDT Robert Hernandez MD LAB BLOOD ORDERABLES F inal Result Performing Organization Address [facility] [place]/[facility] Co de Phone Number NILSA MCDONNELL [address] [address] [facility] [place] [address] * POCT glucose (12/15/2022 2:17 AM CDT) Glucose, POC 185 70 - 199 mg/dL [facility] Blood 12/15/2022 2:17 AM CDT 12/15/2022 2:17 AM CDT Gill Gamboa MD LAB POCT ORDERABLES - DEVICE Final Result Performing Organization Address [facility] Phone Number NILSA [phone] [address] [facility] [place] [address] * (ABNORMAL) POCT glucose (12/14/2022 8:59 PM CDT) Glucose, POC 225(H) 70 - 199 mg/dL [facility] Blood 12/14/2022 8:59 PM CDT 12/14/2022 8:59 PM CDT Gill Gamboa MD LAB POCT ORDERABLES - DEVICE Final Result Performing Organization Address [facility] de Phone Number NILSA [phone] [address] [facility] [place] [address] * POCT glucose (12/14/2022 4:59 PM CDT) Glucose, POC 142 70 - 199 mg/dL [facility] Blood 12/14/2022 4:59 PM CDT 12/14/2022 4:59 PM CDT Gill Gamboa MD LAB POCT ORDERABLES - DEVICE Final Result Performing Organization Address [facility]/[facility] Co de Phone Number CARLOS ENRIQUEELLEN [address] [address] [facility] [place] [address] * POCT glucose (12/14/2022 12:34 PM CDT) Glucose, POC 70 70 - 199 mg/dL [facility] Blood 12/14/2022 12:3 4 PM CDT 12/14/2022 12:34 PM CDT Gill Gamboa MD LAB POCT ORDERABLES - DEVICE Final Result Performing Organization Address [facility]/[facility] de Phone Number [facility] [phone] [place] [address] * POCT glucose (12/14/2022 8:05 AM CDT) Glucose, POC 128 70 - 199 mg/dL [facility] Blood 12/14/2022 8:05 AM CDT 12/14/2022 8:05 AM CDT Gill Gamboa MD LAB POCT ORDERABLES - DEVICE Final Result Performing Organization Address [facility]/[facility] de Phone Number [facility] [phone] [address] [facility] [place] [address] * eGFR (12/14/2022 5:57 AM CDT) eGFR 18 mL/min/1. 73 m2 [facility] Comment: Interpretive Data Reference Interval Normal ?>/= [...] interpretive data was last reviewed 2021. Blood 12/14/2022 5:57 AM CDT 12/14/2022 6:23 AM CDT Robert Hernandez MD LAB BLOOD ORDERABLES F inal Result Performing Organization Address [facility] de Phone Number [facility] [address] [place] [place] [address] * Magnesium (12/14/2022 5:57 AM CDT) Magnesium 2.5 1.4 - 2.5 mg/dL [facility] Blood 12/14/2022 5:57 AM CDT 12/14/2022 6:23 AM CDT Robert Hernandez MD LAB BLOOD ORDERABLES F inal Result Performing Organization Address [facility]/[facility] de Phone Number [facility] [address] [address] Department [place] [address] * (ABNORMAL) Renal function panel (12/14/2022 5:57 AM CDT) Sodium 144 135 - 145 mmol/L [facility] Potassium, pl 4.3 3.3 - 4.9 mmol/L [facility] Chloride 113(H) 97 - 110 mmol/L [facility] CO2 20(L) 22 - 32 mmol/L [facility] Anion gap 11 2 - 15 mmol/L [facility] BUN 56(H) 6 - 25 mg/dL [facility] Creatinine 2.66(H) 0.60 - 1.10 mg/dL [facility] Glucose 154 70 - 199 mg/dL [facility] Comment: Interpretive Data Fasting glucose >/= [...] interpretive data was last revised 2022. Calcium 8.7 8.5 - 10.3 mg/dL [facility] Phosphorus, pl 4.0 2.3 - 4.5 mg/dL [facility] Albumin 2.7(L) 3.5 - 5.0 g/dL [facility] Blood 12/14/2022 5:57 AM CDT 12/14/2022 6:23 AM CDT Robert Hernandez MD LAB BLOOD ORDERABLES F inal Result Performing Organization Address City/[facility]/ZIP Co de Phone Number [facility] [phone] [place] [address] * POCT glucose (12/13/2022 9:24 PM CDT) [facility] Glucose, POC 191 70 - 199 mg/dL [facility] Blood 12/13/2022 9:24 PM CDT 12/13/2022 9:24 PM CDT Gill Gamboa MD LAB POCT ORDERABLES - DEVICE Final Result Performing Organization Address City/[facility]/ZIP Co de Phone Number [facility] [phone] [address] Department [place] [address] * POCT glucose (12/13/2022 4:47 PM CDT) Glucose, POC 178 70 - 199 mg/dL [facility] Blood 12/13/2022 4:47 PM CDT 12/13/2022 4:47 PM CDT Gill Gamboa MD LAB POCT ORDERABLES - DEVICE Final Result Performing Organization Address [facility]/[facility] de Phone Number [facility] [phone] [address] [facility] [place] [address] * POCT glucose (12/13/2022 11:31 AM CDT) Glucose, POC 105 70 - 199 mg/dL [facility] Blood 12/13/2022 11:3 1 AM CDT 12/13/2022 11:31 AM CDT Gill Gamboa MD LAB POCT ORDERABLES - DEVICE Final Result Performing Organization Address [facility] de Phone Number [facility] [phone] [address] [facility] [place] [address] * POCT glucose (12/13/2022 7:54 AM CDT) Glucose, POC 107 70 - 199 mg/dL [facility] Blood 12/13/2022 7:54 AM CDT 12/13/2022 7:54 AM CDT Gill Gamboa MD LAB POCT ORDERABLES - DEVICE Final Result Performing Organization Address [facility] de Phone Number [facility] [phone] [address] [facility] [place] [address] * eGFR (12/13/2022 4:36 AM CDT) eGFR 19 mL/min/1. 73 m2 [facility] Comment: Interpretive Data Reference Interval Normal ?>/= [...] interpretive data was last reviewed 2021. Blood 12/13/2022 4:36 AM CDT 12/13/2022 5:19 AM CDT us Robert Hernandez MD LAB BLOOD ORDERABLES F inal Result [facility] [id number] Department [place] [address] * (ABNORMAL) Differential, auto (12/13/2022 4:36 AM CDT) Neutrophil abs 5.9 1.7 - 6.5 K/cumm [facility] Imm gran abs 0.1 0.0 - 0.1 K/cumm [facility] Lymphocyte abs 2.4 0.8 - 3.3 K/cumm [facility] Monocyte abs 0.9(H) 0.2 - 0.8 K/cumm [facility] Eosinophil abs 0.3 0.0 - 0.5 K/cumm [facility] Basophil abs 0.1 0.0 - 0.1 K/cumm [facility] Neutrophil pct 61.7 % [facility] Comment: Interpretive Data Percent cell count reference ranges are not reported, since discordance with absolute values may lead to misinterpretation of CBC data. Current Interpretive Data was last revised on 2017. Imm gran pct 0.5 % [facility] Comment: Interpretive Data Percent cell count reference ranges are not reported, since discordance with absolute values may lead to misinterpretation of CBC data. Current Interpretive Data was last revised on 2017. Lymphocyte pct 24.7 % [facility] Comment: Interpretive Data Percent cell count reference ranges are not reported, since discordance with absolute values may lead to misinterpretation of CBC data. Current Interpretive Data was last revised on 2017. Monocyte pct 9.7 % [facility] Comment: Interpretive Data Percent cell count reference ranges are not reported, since discordance with absolute values may lead to misinterpretation of CBC data. Current Interpretive Data was last revised on 2017. Eosinophil pct 2.9 % [facility] Comment: Interpretive Data Percent cell count reference ranges are not reported, since discordance with absolute values may lead to misinterpretation of CBC data. Current Interpretive Data was last revised on 2017. Basophil pct 0.5 % [facility] Comment: Interpretive Data Percent cell count reference ranges are not reported, since discordance with absolute values may lead to misinterpretation of CBC data. Current Interpretive Data was last revised on 2017. Blood 12/13/2022 4:36 AM CDT 12/13/2022 5:18 AM CDT Robert Hernandez MD LAB BLOOD ORDERABLES F inal Result [facility] [address] Department of Laboratories [place], [place] [id number] * Magnesium (12/13/2022 4:36 AM CDT) Magnesium 2.4 1.4 - 2.5 mg/dL [facility] Blood 12/13/2022 4:36 AM CDT 12/13/2022 5:19 AM CDT Robert Hernandez MD LAB BLOOD ORDERABLES F inal Result Performing Organization Address City/[facility]/ZIP Co de Phone Number NILSA MCDONNELL [address] [place] [address] * (ABNORMAL) Renal function panel (12/13/2022 4:36 AM CDT) Sodium 143 135 - 145 mmol/L [facility] Potassium, pl 3.9 3.3 - 4.9 mmol/L [facility] Chloride 111(H) 97 - 110 mmol/L [facility] CO2 21(L) 22 - 32 mmol/L [facility] Anion gap 11 2 - 15 mmol/L [facility] BUN 56(H) 6 - 25 mg/dL [facility] Creatinine 2.64(H) 0.60 - 1.10 mg/dL [facility] Glucose 87 70 - 199 mg/dL [facility] Comment: [...] interpretive data was last revised 2022. Calcium 8.7 8.5 - 10.3 mg/dL [facility] Phosphorus, pl 4.6(H) 2.3 - 4.5 mg/dL [facility] Albumin 2.9(L) 3.5 - 5.0 g/dL [facility] Blood 12/13/2022 4:36 AM CDT 12/13/2022 5:19 AM CDT Robert Hernandez MD LAB BLOOD ORDERABLES F inal Result Performing Organization Address City/[facility]/ZIP Co de Phone Number NILSA MCDONNELL [address] Department [employer] [place], [place] [phone] * (ABNORMAL) CBC with auto differential (12/13/2022 4:36 AM CDT) WBC 9.5 3.8 - 9.9 K/cumm [facility] Hgb 7.6(L) 11.9 - 15.5 g/dL [facility] Hct 24.7(L) 35.6 - 45.5 % [facility] Plt 294 150 - 400 K/cumm [facility] MPV 11.1 9.1 - 12.3 fL [facility] RBC 2.55(L) 3.90 - 5.20 M/cumm [facility] MCV 96.9(H) 81.3 - 96.4 fL [facility] MCH 29.8 27.1 - 33.3 pg [facility] MCHC 30.8(L) 32.3 - 35.7 g/dL [facility] RDW CV 16.7(H) 11.1 - 14.9 % [facility] RDW SD 58.4(H) 35.7 - 48.1 fL [facility] NRBC abs 0.06(H) 0.00 - 0.01 K/cumm [facility] Blood 12/13/2022 4:36 AM CDT 12/13/2022 5:18 AM CDT Robert Hernandez MD LAB BLOOD ORDERABLES F inal Result Performing Organization Address [facility] Co de Phone Number [facility] [address] Department [place] [address] * Vancomycin level random (12/13/2022 4:36 AM CDT) Pathologist [facility] Vancomycin random 22.9 mcg/mL [facility] Comment: Interpretive Data No reference ranges have been established for random drug levels. Current Interpretive Data was last revised on 2020. Blood 12/13/2022 4:36 AM CDT 12/13/2022 5:19 AM CDT Krishna Morgan MD LAB BLOOD ORDERABLES Final Resu lt [facility] [address] [facility] [place] [address] * POCT glucose (12/12/2022 8:09 PM CDT) Glucose, POC 135 70 - 199 mg/dL [facility] Blood 12/12/2022 8:09 PM CDT 12/12/2022 8:09 PM CDT Gill Gamboa MD LAB POCT ORDERABLES - DEVICE Final Result NILSA MCDONNELL [address] [facility] [place] [address] * POCT glucose (12/12/2022 5:03 PM CDT) Glucose, POC 166 70 - 199 mg/dL [facility] Blood 12/12/2022 5:03 PM CDT 12/12/2022 5:03 PM CDT Gill Gamboa MD LAB POCT ORDERABLES - DEVICE Final Result Performing Organization Address City/[facility]/ZIP Co de Phone Number CARLOS ENRIQUEELLEN MCDONNELL [address] [place] [address] * POCT glucose (12/12/2022 11:30 AM CDT) Glucose, POC 141 70 - 199 mg/dL [facility] Blood 12/12/2022 11:3 0 AM CDT 12/12/2022 11:30 AM CDT Gill Gamboa MD LAB POCT ORDERABLES - DEVICE Final Result Performing Organization Address City/[facility]/ZIP Co de Phone Number NILSA MCDONNELL [address] [facility] [place] [address] * POCT glucose (12/12/2022 7:24 AM CDT) Glucose, POC 197 70 - 199 mg/dL [facility] Blood 12/12/2022 7:24 AM CDT 12/12/2022 7:24 AM CDT Gill Gamboa MD LAB POCT ORDERABLES - DEVICE Final Result [facility] [address] Department [place] [address] * (ABNORMAL) Aerobic and anaerobic culture and gram stain Wound Toe, great, right (12/12/2022 6:15 AMCDT) Direct Specimen Exam Stain: No polymorphonuclear leukocytes seen. No organisms seen. [facility] Comment:Testing performed by : [facility], [address] [place] [address]., [id number] Report Final Report: Rare Staphylococcus aureus Methicillin resistant (MRSA) by penicillin binding protein 2a (PBP2a) testing. (.) NILSA Comment:Testing performed by : [facility], [address] [place]., [address] Organism STAPHYLOCOCCUS AUREUS [facility] Wound (Toe, great, right) 12/12/2022 6:15 AM CDT 12/12/2022 10:21 AM CDT Narrative NILSA - 12/16/2022 6:58 AM CDT Specimen received on an ESwab. Testing performed by [facility] Microbiology Laboratory ([phone]) Specimens submitted from normally sterile body sites will have all bacterial morphotypes identified. Specimens that contain grossly mixed radha and/or are from body sites that are not normally sterile will be examined for Staphylococcus aureus, Pseudomonas aeruginosa, beta-hemolytic strep, vancomycin-resistant Enterococcus, Bacteroides, Parabacteroides, Clostridium perfringens and fungus. If any of these are isolated, the organism will be reported. Current interpretive data was last revised on 2019. Organism Antibiotic Method Susceptibility Staphylococcus aureus Vancomycin INTERPRETATION Susceptible Staphylococcus aureus Ceftaroline INTERPRETATION Susceptible Staphylococcus aureus Trimethoprim with Sulfamethoxazole INTERPRETATION Susceptible Staphylococcus aureus Linezolid INTERPRETATION Susceptible Staphylococcus aureus Doxycycline INTERPRETATION Susceptible Staphylococcus aureus Clindamycin INTERPRETATION Resistant Staphylococcus aureus Erythromycin INTERPRETATION Resistant Staphylococcus aureus Oxacillin INTERPRETATION Resistant Staphylococcus aureus Cefazolin INTERPRETATION Resistant Staphylococcus aureus Ceftriaxone INTERPRETATION Resistant Marci Mcgregor NP LAB MICROBIOLOGY - GENERA L ORDERABLES Final Result Performing Organization Address [facility]/ZIP Co de Phone Number CARLOS ENRIQUEELLEN MCDONNELL [phone] Department [place] [address] * Urine culture Urine, bladder (12/11/2022 10:35 PM CDT) Report Final Report: No growth [facility] Comment:Testing performed by : [facility], [address] [place]., [address] Urine, bladder 12/11/2022 10 :35 PM CDT 12/12/2022 2:00 AM CDT [facility]ative [facility] 12/13/2022 7:21 AM CDT Urine culture reflexed based upon urinalysis results. Testing performed by [facility] Microbiology Laboratory ([phone]) Marci Mcgregor NP LAB MICROBIOLOGY - GENERA L ORDERABLES Final Result Performing Organization Address [facility] de Phone Number NILSA KECIA [address] Department [place] [address] * (ABNORMAL) Urinalysis, microscopic only (12/11/2022 10:35 PM CDT) WBC, ur 11-20(A) 0 - 5 /HPF [facility] RBC, ur 0-2 0 - 2 /HPF [facility] Epithelial cells, squamous, ur 1-5 0 - 5 /HPF [facility] Mucous, ur Present(A) [facility] Culture Reflex Comment Reflex to urine culture will be performed. [facility] Urine, bladder 12/11/2022 10 :35 PM CDT 12/11/2022 10:39 PM CDT Marci Mcgregor NP LAB URINE ORDERABLES Blessing l Result Performing Organization Address City/[facility] Co de Phone Number NILSA MCDONNELL [phone] Department [place] [address] * (ABNORMAL) Urinalysis reflex to microscopic and culture Urine, bladder (12/11/2022 10:35 PM CDT) Color, ur Yellow Yellow [facility] Clarity, ur Clear Clear [facility] Specific gravity, ur 1.012 1.003 - 1.030 [facility] pH, urine 5.0 [facility] Protein, ur ql 2+(A) Negative [facility] Glucose, ur ql Negative Negative [facility] Ketones, ur Negative Negative [facility] Bilirubin, ur Negative Negative [facility] Blood, ur 2+(A) Negative [facility] Urobilinogen, ur <2.0 <2.0 mg/dL [facility] Nitrite, ur Negative Negative [facility] Leukocyte esterase, ur 2+(A) Negative [facility] UA reflex comment Reflex to microscopic UA will be performed. [facility] Urine, bladder 12/11/2022 10 :35 PM CDT 12/11/2022 10:39 PM CDT Narrative [facility] - 12/11/2022 10:45 PM CDT ?? Urine pH is affected by diet, medications, systemic acid-base disturbances, and renal tubular function. ??pH may affect urinary stone formation. ??For example, urine pH below 6.0 may help reduce the tendency for calcium phosphate stones and pH greater than 6.0 may reduce the tendency for uric acid stone formation. Source: [facility] [employer]. Last revised 07-02-2017 Marci Mcgregor NP LAB MICROBIOLOGY - GENERA L ORDERABLES Final Result NILSA MCDONNELL [address] Department [place] [address] * Blood culture Blood (12/11/2022 10:30 PM CDT) Report Final Report: No growth [facility] Comment:Testing performed by : [facility], [address] [place]., [address] Blood 12/11/2022 10:3 0 PM CDT 12/12/2022 2:03 AM CDT Narrative NILSA - 12/16/2022 7:00 AM CDT Collection->Peripheral 1. ?Blood cultures [...] organism identification may be performed using the [employer] Gram-Positive Blood Culture Assay. This assay detects microbial DNA in positive blood culture broth via hybridization of target DNA to capture oligonucleotides on a microarray. This assay has been cleared by the [place] Food and Drug Administration and its performance characteristics have been verified by the [facility] Microbiology Laboratory. 5. ?For questions about this culture, contact the Microbiology Laboratory at [phone]. Interpretive data was last revised on 2019. Marci Mcgregor NP LAB MICROBIOLOGY - GENERA L ORDERABLES Final Result NILSA [address] Department of Laboratories [place], [place] [phone] * eGFR (12/11/2022 10:26 PM CDT) [facility] eGFR 22 mL/min/1. 73 m2 NILSA MCDONNELL Comment: Interpretive Data Reference Interval Normal ?>/= [...] interpretive data was last reviewed 2021. Blood 12/11/2022 10:2 6 PM CDT 12/11/2022 10:40 PM CDT us Robert Hernandez MD LAB BLOOD ORDERABLES F inal Result [facility] [address] Department [place] [address] * (ABNORMAL) Differential, auto (12/11/2022 10:26 PM CDT) Neutrophil abs 7.4(H) 1.7 - 6.5 K/cumm [facility] Imm gran abs 0.1 0.0 - 0.1 K/cumm [facility] Lymphocyte abs 1.9 0.8 - 3.3 K/cumm [facility] Monocyte abs 0.9(H) 0.2 - 0.8 K/cumm [facility] Eosinophil abs 0.2 0.0 - 0.5 K/cumm [facility] Basophil abs 0.1 0.0 - 0.1 K/cumm [facility] Neutrophil pct 69.9 % [facility] Comment: Interpretive Data Percent cell count reference ranges are not reported, since discordance with absolute values may lead to misinterpretation of CBC data. Current Interpretive Data was last revised on 2017. Imm gran pct 0.6 % [facility] Comment: Interpretive Data Percent cell count reference ranges are not reported, since discordance with absolute values may lead to misinterpretation of CBC data. Current Interpretive Data was last revised on 2017. Lymphocyte pct 18.4 % [facility] Comment: Interpretive Data Percent cell count reference ranges are not reported, since discordance with absolute values may lead to misinterpretation of CBC data. Current Interpretive Data was last revised on 2017. Monocyte pct 8.4 % [facility] Comment: Interpretive Data Percent cell count reference ranges are not reported, since discordance with absolute values may lead to misinterpretation of CBC data. Current Interpretive Data was last revised on 2017. Eosinophil pct 2.2 % [facility] Comment: Interpretive Data Percent cell count reference ranges are not reported, since discordance with absolute values may lead to misinterpretation of CBC data. Current Interpretive Data was last revised on 2017. Basophil pct 0.5 % [facility] Comment: Interpretive Data Percent cell count reference ranges are not reported, since discordance with absolute values may lead to misinterpretation of CBC data. Current Interpretive Data was last revised on 2017. Blood 12/11/2022 10:2 6 PM CDT 12/11/2022 10:40 PM CDT Robert Hernandez MD LAB BLOOD ORDERABLES F inal Result NILSA [address] Department [place] [address] * Magnesium (12/11/2022 10:26 PM CDT) Magnesium 2.4 1.4 - 2.5 mg/dL NILSA Blood 12/11/2022 10:2 6 PM CDT 12/11/2022 10:40 PM CDT Robert Hernandez MD LAB BLOOD ORDERABLES E dited Result - Final Performing Organization Address City/[facility]/ZIP Co de Phone Number NILSA MCDONNELL [address] Department of Laboratories [place], [place] [phone] * (ABNORMAL) Renal function panel (12/11/2022 10:26 PM CDT) [facility] Sodium 139 135 - 145 mmol/L [facility] Potassium, pl 4.8 3.3 - 4.9 mmol/L [facility] Chloride 109 97 - 110 mmol/L [facility] CO2 17(L) 22 - 32 mmol/L [facility] Anion gap 13 2 - 15 mmol/L [facility] BUN 60(H) 6 - 25 mg/dL [facility] Creatinine 2.33(H) 0.60 - 1.10 mg/dL [facility] Glucose 188 70 - 199 mg/dL [facility] Comment: [...] 8.5 - 10.3 mg/dL [facility] Phosphorus, pl 4.1 2.3 - 4.5 mg/dL [facility] Albumin 2.9(L) 3.5 - 5.0 g/dL [facility] Blood 12/11/2022 10:2 6 PM CDT 12/11/2022 10:40 PM CDT Robert Hernandez MD LAB BLOOD ORDERABLES E dited Result - Final NILSA MCDONNELL [address] Department [place] [address] * (ABNORMAL) CBC with auto differential (12/11/2022 10:26 PM CDT) WBC 10.5(H) 3.8 - 9.9 K/cumm [facility] Hgb 8.3(L) 11.9 - 15.5 g/dL [facility] Hct 26.6(L) 35.6 - 45.5 % [facility] Plt 361 150 - 400 K/cumm [facility] MPV 10.7 9.1 - 12.3 fL [facility] RBC 2.79(L) 3.90 - 5.20 M/cumm [facility] MCV 95.3 81.3 - 96.4 fL [facility] MCH 29.7 27.1 - 33.3 pg [facility] MCHC 31.2(L) 32.3 - 35.7 g/dL [facility] RDW CV 16.7(H) 11.1 - 14.9 % [facility] RDW SD 57.4(H) 35.7 - 48.1 fL [facility] NRBC abs 0.04(H) 0.00 - 0.01 K/cumm [facility] Blood 12/11/2022 10:2 6 PM CDT 12/11/2022 10:40 PM CDT Robert Hernandez MD LAB BLOOD ORDERABLES F inal Result Performing Organization Address City/[facility]/ZIP Co de Phone Number [facility] [address] [place] [address] * POCT glucose (12/11/2022 7:48 PM CDT) Glucose, POC 151 70 - 199 mg/dL [facility] Blood 12/11/2022 7:48 PM CDT 12/11/2022 7:48 PM CDT Gill Gamboa MD LAB POCT ORDERABLES - DEVICE Final Result Performing Organization Address [facility] Co de Phone Number [facility] [address] [facility] [employer] [place], [place] [phone] * POCT glucose (12/11/2022 6:01 PM CDT) Glucose, POC 120 70 - 199 mg/dL [facility] Blood 12/11/2022 6:01 PM CDT 12/11/2022 6:01 PM CDT Gill Gamboa MD LAB POCT ORDERABLES - DEVICE Final Result Performing Organization Address City/[facility]/ZIP Co de Phone Number NILSA MCDONNELL [phone] [facility] [place] [address] * POCT glucose (12/11/2022 5:25 PM CDT) Glucose, POC 80 70 - 199 mg/dL [facility] Blood 12/11/2022 5:25 PM CDT 12/11/2022 5:25 PM CDT Gill Gamboa MD LAB POCT ORDERABLES - DEVICE Final Result Performing Organization Address [facility] Co de Phone Number NILSA MCDONNELL [address] [facility] [place] [address] * (ABNORMAL) POCT glucose (12/11/2022 5:06 PM CDT) Glucose, POC 67(L) 70 - 199 mg/dL [facility] Blood 12/11/2022 5:06 PM CDT 12/11/2022 5:06 PM CDT Gill Gamboa MD LAB POCT ORDERABLES - DEVICE Final Result Performing Organization Address City/[facility] Co de Phone Number NILSA MCDONNELL [address] [facility] [place] [address] * (ABNORMAL) POCT glucose (12/11/2022 4:54 PM CDT) Glucose, POC 66(L) 70 - 199 mg/dL [facility] Blood 12/11/2022 4:54 PM CDT 12/11/2022 4:54 PM CDT Gill Gamboa MD LAB POCT ORDERABLES - DEVICE Final Result Performing Organization Address [facility] Co de Phone Number NILSA [address] [facility] [place] [address] * POCT glucose (12/11/2022 1:00 PM CDT) Glucose, POC 97 70 - 199 mg/dL [facility] Blood 12/11/2022 1:00 PM CDT 12/11/2022 1:00 PM CDT Gill Gamboa MD LAB POCT ORDERABLES - DEVICE Final Result Performing Organization Address [facility]/[facility] de Phone Number [facility] [address] [facility] [place] [address] * POCT glucose (12/11/2022 8:11 AM CDT) Glucose, POC 99 70 - 199 mg/dL [facility] Blood 12/11/2022 8:11 AM CDT 12/11/2022 8:11 AM CDT Gill Gamboa MD LAB POCT ORDERABLES - DEVICE Final Result Performing Organization Address [facility] de Phone Number [facility] [address] [place] [address] * eGFR (12/11/2022 5:09 AM CDT) eGFR 19 mL/min/1. 73 m2 [facility] Comment: Interpretive Data Reference Interval Normal ?>/= [...] interpretive data was last reviewed 2021. Blood 12/11/2022 5:09 AM CDT 12/11/2022 5:37 AM CDT us Robert Hernandez MD LAB BLOOD ORDERABLES F inal Result [facility] [address] Department [place] [address] * (ABNORMAL) Differential, auto (12/11/2022 5:09 AM CDT) Neutrophil abs 6.1 1.7 - 6.5 K/cumm [facility] Imm gran abs 0.1 0.0 - 0.1 K/cumm [facility] Lymphocyte abs 2.7 0.8 - 3.3 K/cumm [facility] Monocyte abs 1.0(H) 0.2 - 0.8 K/cumm [facility] Eosinophil abs 0.3 0.0 - 0.5 K/cumm [facility] Basophil abs 0.1 0.0 - 0.1 K/cumm [facility] Neutrophil pct 60.4 % [facility] Comment: Interpretive Data Percent cell count reference ranges are not reported, since discordance with absolute values may lead to misinterpretation of CBC data. Current Interpretive Data was last revised on 2017. Imm gran pct 0.5 % [facility] Comment: Interpretive Data Percent cell count reference ranges are not reported, since discordance with absolute values may lead to misinterpretation of CBC data. Current Interpretive Data was last revised on 2017. Lymphocyte pct 26.3 % [facility] Comment: Interpretive Data Percent cell count reference ranges are not reported, since discordance with absolute values may lead to misinterpretation of CBC data. Current Interpretive Data was last revised on 2017. Monocyte pct 9.6 % [facility] Comment: Interpretive Data Percent cell count reference ranges are not reported, since discordance with absolute values may lead to misinterpretation of CBC data. Current Interpretive Data was last revised on 2017. Eosinophil pct 2.6 % [facility] Comment: Interpretive Data Percent cell count reference ranges are not reported, since discordance with absolute values may lead to misinterpretation of CBC data. Current Interpretive Data was last revised on 2017. Basophil pct 0.6 % [facility] Comment: Interpretive Data Percent cell count reference ranges are not reported, since discordance with absolute values may lead to misinterpretation of CBC data. Current Interpretive Data was last revised on 2017. Blood 12/11/2022 5:09 AM CDT 12/11/2022 5:37 AM CDT Robert Hernandez MD LAB BLOOD ORDERABLES F inal Result Performing Organization Address [facility] Co de Phone Number NILSA [phone] [place] [address] * Magnesium (12/11/2022 5:09 AM CDT) Magnesium 2.5 1.4 - 2.5 mg/dL [facility] Blood 12/11/2022 5:09 AM CDT 12/11/2022 5:37 AM CDT Robert Hernandez MD LAB BLOOD ORDERABLES F inal Result Performing Organization Address [facility] [place]/[facility] Co de Phone Number [facility] [address] [address] Department [place] [address] * (ABNORMAL) Renal function panel (12/11/2022 5:09 AM CDT) Sodium 144 135 - 145 mmol/L [facility] Potassium, pl 4.5 3.3 - 4.9 mmol/L [facility] Chloride 112(H) 97 - 110 mmol/L [facility] CO2 19(L) 22 - 32 mmol/L [facility] Anion gap 13 2 - 15 mmol/L [facility] BUN 67(H) 6 - 25 mg/dL [facility] Creatinine 2.62(H) 0.60 - 1.10 mg/dL [facility] Glucose 83 70 - 199 mg/dL [facility] Comment: [...] - 10.3 mg/dL [facility] Phosphorus, pl 4.9(H) 2.3 - 4.5 mg/dL [facility] Albumin 3.0(L) 3.5 - 5.0 g/dL [facility] Blood 12/11/2022 5:09 AM CDT 12/11/2022 5:37 AM CDT us Robert Hernandez MD LAB BLOOD ORDERABLES F inal Result NILSA MCDONNELL [address] [address] [place] [address] * (ABNORMAL) CBC with auto differential (12/11/2022 5:09 AM CDT) WBC 10.1(H) 3.8 - 9.9 K/cumm [facility] Hgb 7.8(L) 11.9 - 15.5 g/dL [facility] Hct 25.7(L) 35.6 - 45.5 % [facility] Plt 314 150 - 400 K/cumm [facility] MPV 11.1 9.1 - 12.3 fL [facility] RBC 2.66(L) 3.90 - 5.20 M/cumm [facility] MCV 96.6(H) 81.3 - 96.4 fL [facility] MCH 29.3 27.1 - 33.3 pg [facility] MCHC 30.4(L) 32.3 - 35.7 g/dL [facility] RDW CV 16.5(H) 11.1 - 14.9 % [facility] RDW SD 57.1(H) 35.7 - 48.1 fL [facility] NRBC abs 0.05(H) 0.00 - 0.01 K/cumm [facility] Blood 12/11/2022 5:09 AM CDT 12/11/2022 5:37 AM CDT Robert Hernandez MD LAB BLOOD ORDERABLES F inal Result Performing Organization Address [facility] [place]/[facility] Co de Phone Number NILSA [address] [address] [place] [address] * Vancomycin level random (12/11/2022 5:09 AM CDT) Vancomycin random 19.8 mcg/mL [facility] Comment: Interpretive Data No reference ranges have been established for random drug levels. Current Interpretive Data was last revised on 2020. Blood 12/11/2022 5:09 AM CDT 12/11/2022 5:38 AM CDT Krishna Morgan MD LAB BLOOD ORDERABLES Final Resu lt [facility] [address] [address] Department [place] [address] * POCT glucose (12/10/2022 7:57 PM CDT) Glucose, POC 71 70 - 199 mg/dL [facility] Blood 12/10/2022 7:57 PM CDT 12/10/2022 7:57 PM CDT Gill Gamboa MD LAB POCT ORDERABLES - DEVICE Final Result Performing Organization Address [facility] [place]/[facility] Co de Phone Number NISLA MCDONNELL [phone] [address] [facility] [place] [address] * POCT glucose (12/10/2022 5:27 PM CDT) Glucose, POC 150 70 - 199 mg/dL [facility] Blood 12/10/2022 5:27 PM CDT 12/10/2022 5:27 PM CDT Gill Gamboa MD LAB POCT ORDERABLES - DEVICE Final Result Performing Organization Address [facility] [place]/[facility] Co de Phone Number NILSA MCDONNELL [phone] [address] [facility] [place] [address] * POCT glucose (12/10/2022 12:12 PM CDT) Glucose, POC 154 70 - 199 mg/dL [facility] Blood 12/10/2022 12:1 2 PM CDT 12/10/2022 12:12 PM CDT Gill Gamboa MD LAB POCT ORDERABLES - DEVICE Final Result Performing Organization Address [facility] [place]/[facility] Co de Phone Number NILSA MCDONNELL [address] [address] [facility] [place] [address] * POCT glucose (12/10/2022 7:26 AM CDT) Glucose, POC 142 70 - 199 mg/dL [facility] Blood 12/10/2022 7:26 AM CDT 12/10/2022 7:26 AM CDT us Gill Gamboa MD LAB POCT ORDERABLES - DEVICE Final Result Performing Organization Address [facility] [place]/[facility] Co de Phone Number NILSA MCDONNELL [phone] [address] [place] [address] * eGFR (12/10/2022 5:42 AM CDT) [facility] eGFR 18 mL/min/1. 73 m2 NILSA Comment: Interpretive Data [...] interpretive data was last reviewed 2021. Blood 12/10/2022 5:42 AM CDT 12/10/2022 6:06 AM CDT Robert Hernandez MD LAB BLOOD ORDERABLES F inal Result Performing Organization Address [facility] [place]/[facility] Co de Phone Number NILSA [address] [address] Department [place] [address] * (ABNORMAL) Differential, auto (12/10/2022 5:42 AM CDT) Neutrophil abs 7.3(H) 1.7 - 6.5 K/cumm [facility] Imm gran abs 0.1 0.0 - 0.1 K/cumm [facility] Lymphocyte abs 2.0 0.8 - 3.3 K/cumm [facility] Monocyte abs 1.0(H) 0.2 - 0.8 K/cumm [facility] Eosinophil abs 0.3 0.0 - 0.5 K/cumm [facility] Basophil abs 0.0 0.0 - 0.1 K/cumm [facility] Neutrophil pct 68.6 % [facility] Comment: Interpretive Data Percent cell count reference ranges are not reported, since discordance with absolute values may lead to misinterpretation of CBC data. Current Interpretive Data was last revised on 2017. Imm gran pct 0.6 % [facility] Comment: Interpretive Data Percent cell count reference ranges are not reported, since discordance with absolute values may lead to misinterpretation of CBC data. Current Interpretive Data was last revised on 2017. Lymphocyte pct 18.8 % [facility] Comment: Interpretive Data Percent cell count reference ranges are not reported, since discordance with absolute values may lead to misinterpretation of CBC data. Current Interpretive Data was last revised on 2017. Monocyte pct 9.2 % [facility] Comment: Interpretive Data Percent cell count reference ranges are not reported, since discordance with absolute values may lead to misinterpretation of CBC data. Current Interpretive Data was last revised on 2017. Eosinophil pct 2.4 % [facility] Comment: Interpretive Data Percent cell [...] Data was last revised on 2017. Blood 12/10/2022 5:42 AM CDT 12/10/2022 6:06 AM CDT Robert Hernandez MD LAB BLOOD ORDERABLES F inal Result Performing Organization Address [facility] [place]/[facility] de Phone Number NILSA [address] [address] [facility] [place] [address] * Vancomycin level random (12/10/2022 5:42 AM CDT) Vancomycin random 24.2 mcg/mL [facility] Comment: Interpretive Data No reference ranges have been established for random drug levels. Current Interpretive Data was last revised on 2020. Blood 12/10/2022 5:42 AM CDT 12/10/2022 6:05 AM CDT Narrative [facility] - 12/10/2022 6:52 AM CDT Draw level 24 hours after dose. Bev Adames MD LAB BLOOD ORDERABLES Final Result Performing Organization Address [facility] de Phone Number [facility] [phone] [address] [place] [address] * Magnesium (12/10/2022 5:42 AM CDT) Pathologist [facility] Magnesium 2.4 1.4 - 2.5 mg/dL [facility] Blood 12/10/2022 5:42 AM CDT 12/10/2022 6:06 AM CDT Robert Hernandez MD LAB BLOOD ORDERABLES F inal Result Performing Organization Address [facility] [place]/[facility] de Phone Number NILSA [address] [address] [place] [address] * (ABNORMAL) Renal function panel (12/10/2022 5:42 AM CDT) Sodium 144 135 - 145 mmol/L [facility] Potassium, pl 4.6 3.3 - 4.9 mmol/L [facility] Chloride 112(H) 97 - 110 mmol/L [facility] CO2 19(L) 22 - 32 mmol/L [facility] Anion gap 13 2 - 15 mmol/L [facility] BUN 69(H) 6 - 25 mg/dL [facility] Creatinine 2.69(H) 0.60 - 1.10 mg/dL [facility] Glucose 158 70 - 199 mg/dL [facility] Comment: Interpretive Data Fasting glucose >/= 126 [...] 8.5 - 10.3 mg/dL [facility] Phosphorus, pl 5.2(H) 2.3 - 4.5 mg/dL [facility] Albumin 3.1(L) 3.5 - 5.0 g/dL [facility] Blood 12/10/2022 5:42 AM CDT 12/10/2022 6:06 AM CDT Robert Hernandez MD LAB BLOOD ORDERABLES F inal Result NILSA [address] [address] [place] [address] * (ABNORMAL) CBC with auto differential (12/10/2022 5:42 AM CDT) Pathologist [facility] WBC 10.6(H) 3.8 - 9.9 K/cumm [facility] Hgb 7.1(L) 11.9 - 15.5 g/dL [facility] Hct 23.0(L) 35.6 - 45.5 % [facility] Plt 299 150 - 400 K/cumm [facility] MPV 11.1 9.1 - 12.3 fL [facility] RBC 2.39(L) 3.90 - 5.20 M/cumm [facility] MCV 96.2 81.3 - 96.4 fL [facility] MCH 29.7 27.1 - 33.3 pg [facility] MCHC 30.9(L) 32.3 - 35.7 g/dL [facility] RDW CV 16.2(H) 11.1 - 14.9 % [facility] RDW SD 56.4(H) 35.7 - 48.1 fL [facility] NRBC abs 0.10(H) 0.00 - 0.01 K/cumm [facility] Blood 12/10/2022 5:42 AM CDT 12/10/2022 6:06 AM CDT Result [facility] Robert Hernandez MD LAB BLOOD ORDERABLES F inal Result Performing Organization Address [facility] [place]/[facility]/ZIP Co de Phone Number NILSA [phone] [address] [facility] [employer] [place], [place] [id number] * POCT glucose (12/10/2022 3:07 AM CDT) Glucose, POC 175 70 - 199 mg/dL [facility] Blood 12/10/2022 3:07 AM CDT 12/10/2022 3:07 AM CDT Result [facility] Bev Adames MD LAB POCT ORDERABLES - DEVIC E Final Result Performing Organization Address [facility] [place]/[facility] Co de Phone Number [facility] [phone] [address] [facility] [place] [address] * POCT glucose (12/09/2022 9:15 PM CDT) Glucose, POC 151 70 - 199 mg/dL [facility] Blood 12/09/2022 9:15 PM CDT 12/09/2022 9:15 PM CDT Result [facility] Bev Adames MD LAB POCT ORDERABLES - DEVIC E Final Result Performing Organization Address [facility] [place]/[facility] Co de Phone Number [facility] [phone] [address] [facility] [place] [address] * POCT glucose (12/09/2022 5:13 PM CDT) Glucose, POC 184 70 - 199 mg/dL NILSA Blood 12/09/2022 5:13 PM CDT 12/09/2022 5:13 PM CDT Bev Adames MD LAB POCT ORDERABLES - DEVIC E Final Result Performing Organization Address [facility] [place]/[facility] Co de Phone Number [facility] [phone] [address] [facility] [employer] [place], [place] [id number] * Vancomycin level random (12/09/2022 4:52 PM CDT) Vancomycin random 26.4 mcg/mL [facility] Comment: Interpretive Data No reference ranges have been established for random drug levels. Current Interpretive Data was last revised on 2020. Blood 12/09/2022 4:52 PM CDT 12/09/2022 5:41 PM CDT Narrative [facility] - 12/09/2022 6:08 PM CDT Please draw at specified time of 1700 Krishna Morgan MD LAB BLOOD ORDERABLES Final Resu lt Performing Organization Address [facility] [place]/[facility] de Phone Number [facility] [phone] [address] [facility] [place] [address] * POCT glucose (12/09/2022 12:18 PM CDT) Glucose, POC 111 70 - 199 mg/dL [facility] Blood 12/09/2022 12:1 8 PM CDT 12/09/2022 12:18 PM CDT Bev Adames MD LAB POCT ORDERABLES - DEVIC E Final Result Performing Organization Address [facility] [place]/[facility] Co de Phone Number [facility] [phone] [address] [facility] [place] [address] * POCT glucose (12/09/2022 8:08 AM CDT) Glucose, POC 125 70 - 199 mg/dL NILSA Blood 12/09/2022 8:08 AM CDT 12/09/2022 8:08 AM CDT Bev Adames MD LAB POCT ORDERABLES - DEVIC E Final Result NILSA [address] [address] Department [place] [address] * eGFR (12/09/2022 5:28 AM CDT) eGFR 18 mL/min/1. 73 m2 NILSA MCDONNELL Comment: Interpretive Data Reference Interval Normal ?>/= [...] interpretive data was last reviewed 2021. Blood 12/09/2022 5:28 AM CDT 12/09/2022 5:33 AM CDT us Robert Hernandez MD LAB BLOOD ORDERABLES F inal Result [facility] [address] [address] [place] [address] * (ABNORMAL) Differential, auto (12/09/2022 5:28 AM CDT) Neutrophil abs 5.2 1.7 - 6.5 K/cumm [facility] Imm gran abs 0.0 0.0 - 0.1 K/cumm [facility] Lymphocyte abs 2.0 0.8 - 3.3 K/cumm [facility] Monocyte abs 0.9(H) 0.2 - 0.8 K/cumm [facility] Eosinophil abs 0.2 0.0 - 0.5 K/cumm [facility] Basophil abs 0.0 0.0 - 0.1 K/cumm [facility] Neutrophil pct 62.0 % [facility] Comment: Interpretive Data Percent cell count reference ranges are not reported, since discordance with absolute values may lead to misinterpretation of CBC data. Current Interpretive Data was last revised on 2017. Imm gran pct 0.4 % [facility] Comment: Interpretive Data Percent cell count reference ranges are not reported, since discordance with absolute values may lead to misinterpretation of CBC data. Current Interpretive Data was last revised on 2017. Lymphocyte pct 24.4 % [facility] Comment: Interpretive Data Percent cell count reference ranges are not reported, since discordance with absolute values may lead to misinterpretation of CBC data. Current Interpretive Data was last revised on 2017. Monocyte pct 10.3 % [facility] Comment: Interpretive Data Percent cell count reference ranges are not reported, since discordance with absolute values may lead to misinterpretation of CBC data. Current Interpretive Data was last revised on 2017. Eosinophil pct 2.5 % [facility] Comment: Interpretive Data Percent cell count reference ranges are not reported, since discordance with absolute values may lead to misinterpretation of CBC data. Current Interpretive Data was last revised on 2017. Basophil pct 0.4 % [facility] Comment: Interpretive Data Percent cell count reference ranges are not reported, since discordance with absolute values may lead to misinterpretation of CBC data. Current Interpretive Data was last revised on 2017. Blood 12/09/2022 5:28 AM CDT 12/09/2022 5:34 AM CDT Robert Hernandez MD LAB BLOOD ORDERABLES F inal Result Performing Organization Address [facility] [place]/[facility] Co de Phone Number [facility] [phone] [address] Department [place] [address] * Magnesium (12/09/2022 5:28 AM CDT) Pathologist [facility] Magnesium 2.3 1.4 - 2.5 mg/dL [facility] Blood 12/09/2022 5:28 AM CDT 12/09/2022 5:33 AM CDT Robert Hernandez MD LAB BLOOD ORDERABLES F inal Result Performing Organization Address [facility] [place]/[facility] de Phone Number [facility] [address] [address] Department [place] [address] * (ABNORMAL) Renal function panel (12/09/2022 5:28 AM CDT) Sodium 143 135 - 145 mmol/L [facility] Potassium, pl 4.6 3.3 - 4.9 mmol/L [facility] Chloride 111(H) 97 - 110 mmol/L [facility] CO2 20(L) 22 - 32 mmol/L [facility] Anion gap 12 2 - 15 mmol/L [facility] BUN 68(H) 8 - 25 mg/dL [facility] Creatinine 2.68(H) 0.60 - 1.10 mg/dL [facility] Glucose 92 70 - 199 mg/dL [facility] Comment: Interpretive Data Fasting glucose >/= [...] Albumin 2.9(L) 3.5 - 5.0 g/dL [facility] Blood 12/09/2022 5:28 AM CDT 12/09/2022 5:33 AM CDT us Robert Hernandez MD LAB BLOOD ORDERABLES F inal Result [facility] [address] [address] Department [place] [address] * (ABNORMAL) CBC with auto differential (12/09/2022 5:28 AM CDT) WBC 8.3 3.8 - 9.9 K/cumm [facility] Hgb 7.5(L) 11.9 - 15.5 g/dL [facility] Hct 24.3(L) 35.6 - 45.5 % [facility] Plt 293 150 - 400 K/cumm [facility] MPV 11.1 9.1 - 12.3 fL [facility] RBC 2.54(L) 3.90 - 5.20 M/cumm [facility] MCV 95.7 81.3 - 96.4 fL [facility] MCH 29.5 27.1 - 33.3 pg [facility] MCHC 30.9(L) 32.3 - 35.7 g/dL [facility] RDW CV 16.3(H) 11.1 - 14.9 % [facility] RDW SD 57.1(H) 35.7 - 48.1 fL [facility] NRBC abs 0.05(H) 0.00 - 0.01 K/cumm [facility] Blood 12/09/2022 5:28 AM CDT 12/09/2022 5:34 AM CDT Robert Hernandez MD LAB BLOOD ORDERABLES F inal Result Performing Organization Address [facility] [place]/[facility] de Phone Number [facility] [address] [address] [facility] [place] [address] * Vancomycin level random (12/09/2022 5:28 AM CDT) Vancomycin random 32.8 mcg/mL [facility] Comment: Interpretive Data No reference ranges have been established for random drug levels. Current Interpretive Data was last revised on 2020. Blood 12/09/2022 5:28 AM CDT 12/09/2022 5:33 AM CDT Krishna Morgan MD LAB BLOOD ORDERABLES Final Resu lt Performing Organization Address [facility] de Phone Number [facility] [address] [address] [facility] [place] [address] * POCT glucose (12/09/2022 2:55 AM CDT) Glucose, POC 88 70 - 199 mg/dL [facility] Blood 12/09/2022 2:55 AM CDT 12/09/2022 2:55 AM CDT Bev Adames MD LAB POCT ORDERABLES - DEVIC E Final Result Performing Organization Address [facility] de Phone Number NILSA [address] [address] [facility] [place] [address] * POCT glucose (12/08/2022 8:20 PM CDT) Glucose, POC 194 70 - 199 mg/dL [facility] Blood 12/08/2022 8:20 PM CDT 12/08/2022 8:20 PM CDT Bev Adames MD LAB POCT ORDERABLES - DEVIC E Final Result Performing Organization Address [facility]/ZIP Co de Phone Number [facility] [address] [address] Department [place] [address] * Influenza A/B, RSV, and COVID-19 PCR Nasopharyngeal (12/08/2022 7:15 PM CDT) Pathologist [facility] COVID-19 RNA Negative Negative [facility] Influenza A RNA Negative Negative [facility] Influenza B RNA Negative Negative [facility] RSV RNA Negative Negative [facility] Comment: Interpretive data: This test is performed using the [employer] Xpert Xpress CoV-2/Flu/RSV plus assay. This is a multiplex, real-time reverse transcriptase PCR assay intended for the qualitative detection of nucleic acid from SARS-CoV-2, influenza A, influenza B, and respiratory syncytial virus. This assay has been reviewed by the FDA for Emergency Use Authorization (EUA). The performance characteristics have been verified by the performing laboratory. Results must be considered in the clinical context, and a negative result does not rule out infection. Interpretive Data last revised 2021. Nasopharyngeal 12/08/2022 7: 15 PM CDT 12/08/2022 7:27 PM CDT Narrative [facility] - 12/08/2022 8:15 PM CDT Is the Patient experiencing symptoms consistent with COVID?->Yes Date of Symptom Onset->12/06/22 Reason for testing?->Symptomatic Krishna Morgan MD LAB MICROBIOLOGY - GENERAL FREDDY HALEY Final Result Performing Organization Address [facility] de Phone Number [facility] [address] [address] Department [place] [address] * POCT glucose (12/08/2022 5:16 PM CDT) Pathologist [facility] Glucose, POC 137 70 - 199 mg/dL [facility] Blood 12/08/2022 5:16 PM CDT 12/08/2022 5:16 PM CDT Bev Adames MD LAB POCT ORDERABLES - DEVIC E Final Result Performing Organization Address [facility] [place]/State/ZIP Co de Phone Number NILSA [address] [facility] Department [place] [address] * TRANSTHORACIC ECHO (TTE) COMPLETE W DOPPLER/CF WO CONTRAST (12/08/2022 3:30 PM CDT) Anatomical Region Laterality Modality Ultrasound 12/08/2022 2:40 PM CDT Narrative 12/08/2022 4:08 [place] [address] Echocardiogram Report Patient Name: SIXTO CHAKRABORTY L : 1950 Study Date: 12/08/2022 2:40:12 PM Gender: F Tech: CT Location: [id number] Ref.Provider: CLAYTON LAINEZ Height(Cm): 156 BSA: 1.85 Weight(Kg): 79 Heart Rate: 71 BP: 128/66 Quality: Good Order Provider: CLAYTON LAINEZ Procedures: Echocardiographic Report: Transthoracic echocardiogram with complete 2D, M-Mode, and color Doppler examination. Indications: Congestive Heart Failure. Measurements: 2D/M Mode ?Doppler ? Measurement ?Value ?Normal Range ? Measurement ?Value ?Normal Range ? EF Teich 2D ?61.6 ? [ 55.0 - 70.0 ] percent ?ALEXEY Vmax ? 2.13 ? [ 2.00 - 4.00 ] cm2 ? EF Mod 4C ?65.3 ? [ 55.0 - 70.0 ] percent ?AV Mean PG ? 7 ?[ 2 - 4 ] mmHg ? LVIDd 2D ? 4.65 ? [ 3.90 - 5.30 ] cm ? AV Peak Leonard ?1.86 ? [ 1.00 - 1.70 ] m/s ? LVIDs 2D ? 3.12 ? [ 2.30 - 3.90 ] cm ? AV VTI ? 40.64 ?cm ? LVPWd 2D ? 0.85 ? [ 0.60 - 1.00 ] cm ? LVOT Diam ?1.85 ? [ 1.70 - 2.10 ] cm ? IVSd 2D ?0.70 ? [ 0.60 - 0.90 ] cm ? LVOT Peak Leonard ?1.46 ? [ 0.70 - 1.10 ] m/s ? LA Dimension MM ?3.26 ? [ 2.70 - 3.80 ] cm ? LVOT VTI ? 30.19 ?[ 20.00 - 30.00 ] cm ? AoR Diam MM ?2.57 ? [ 2.60 - 3.70 ] cm ? MV E Peak Leonard ?1.49 ? [ 0.60 - 1.30 ] m/s ? LA Volume Index ?24.68 ?[ 16.00 - 28.00 ] cc/m2 ?MV A Peak Leonard ?1.26 ? [ 1.00 - 1.20 ] m/s ? ACS MM ? 1.56 ? cm ? MV Mean PG ? 3 ?[ <= 5 ] mmHg ? MV PHT ? 72 ? [ 20 - 100 ] msec ? MVA ?3.10 ? MV Decel Time ?225 ?[ 104 - 258 ] msec ? PV Peak Leonard ?1.30 ? [ 0.40 - 0.80 ] m/s ? TR Peak Leonard ?3.76 ? [ 1.00 - 2.80 ] m/s ? TR Peak PG ? 57 ? mmHg ? E' ? 0.10 ? E/E' ? 14.00 ? Measurement ?Value ?Normal Range ? Measurement ?Value ?Normal Range ? 2D/M Mode ?Doppler ? - Findings: Atrial Septum: Normal atrial septum. Left Ventricle: Normal left ventricular size. Normal left ventricular systolic function with no focal wall motion abnormalities. Ejection fraction is measured at 65 %. Left Atrium: The left atrium is normal in size. Right Ventricle: Normal right ventricular size. Normal right ventricular systolic function. Right Atrium: The right atrium is normal in size. Aortic Valve: Normal structure of the aortic valve. Mitral Valve: Normal structure of the mitral valve. Pulmonic Valve: Normal structure of the pulmonic valve. Tricuspid Valve: Normal structure of the tricuspid valve. Moderate pulmonary hypertension based on right ventricular systolic pressure. Estimated peak RVSP is 50 mmHg. Mild tricuspid regurgitation. Pericardium: Normal pericardium with no significant pericardial effusion. Aorta: Normal aortic root. IVC: Dilated IVC with respiratory collapse consistent with elevated right atrial pressure (10-15 mmHg). Pulmonary Artery: Normal pulmonary artery size. Conclusions: Normal left ventricular size. Normal left ventricular systolic function with no focal wall motion abnormalities. Ejection fraction is measured at 65 %. Normal structure of the tricuspid valve. Moderate pulmonary hypertension based on right ventricular systolic pressure. Estimated peak RVSP is 50 mmHg. Mild tricuspid regurgitation. Dilated IVC with respiratory collapse consistent with elevated right atrial pressure (10-15 mmHg). Electronically Signed By: Audie Gould MD, [facility] 2022-12-08 16:07:58 CDT CC: CC: Procedure Note Audie Gould MD - 12/08/2022 [place] [address] Echocardiogram Report Patient Name: SIXTO CHAKRABORTY LPatient ID: [id number] : [id number] Date: 12/08/2022 2:40:12 PM Gender: FAccession #: [id number] Tech: AKLocation: [id number] Ref.Provider: CLAYTON LAINEZHeight(Cm): 156 BSA: 1.85Weight(Kg): 79 Heart Rate: 71BP: 128/66 Quality: GoodOrder Provider: CLAYTON LAINEZ Procedures: Echocardiographic Report: Transthoracic echocardiogram with complete 2D, M-Mode, and color Dopplerexamination. Indications: Congestive Heart Failure. Measurements: 2D/M Mode Doppler Measurement Value Normal Range MeasurementValue Normal Range EF Teich 2D 61.6 [ 55.0 - 70.0 ] percent ALEXEY Vmax2.13 [ 2.00 - 4.00 ] cm2 EF Mod 4C 65.3 [ 55.0 - 70.0 ] percent AV Mean PG 7[ 2 - 4 ] mmHg LVIDd 2D 4.65 [ 3.90 - 5.30 ] cm AV Peak Vel1.86 [ 1.00 - 1.70 ] m/s LVIDs 2D 3.12 [ 2.30 - 3.90 ] cm AV VTI40.64 cm LVPWd 2D 0.85 [ 0.60 - 1.00 ] cm LVOT Diam1.85 [ 1.70 - 2.10 ] cm IVSd 2D 0.70 [ 0.60 - 0.90 ] cm LVOT Peak Vel1.46 [ 0.70 - 1.10 ] m/s LA Dimension MM 3.26 [ 2.70 - 3.80 ] cm LVOT VTI30.19 [ 20.00 - 30.00 ] cm AoR Diam MM 2.57 [ 2.60 - 3.70 ] cm MV E Peak Vel1.49 [ 0.60 - 1.30 ] m/s LA Volume Index 24.68 [ 16.00 - 28.00 ] cc/m2 MV A Peak Vel1.26 [ 1.00 - 1.20 ] m/s ACS MM 1.56 cm MV Mean PG 3[ <= 5 ] mmHg MV PHT 72[ 20 - 100 ] msec MVA3.10 MV Decel Whvo051 [ 104 - 258 ] msec PV Peak Vel1.30 [ 0.40 - 0.80 ] m/s TR Peak Vel3.76 [ 1.00 - 2.80 ] m/s TR Peak PG 57mmHg E'0.10 E/E'14.00 Measurement Value Normal Range MeasurementValue Normal Range 2D/M Mode Doppler - Findings: Atrial Septum: Normal atrial septum. Left Ventricle: Normal left ventricular size. Normal left ventricular systolic functionwith no focal wall motion abnormalities. Ejection fraction is measured at 65 %. Left Atrium: The left atrium is normal in size. Right Ventricle: Normal right ventricular size. Normal right ventricular systolicfunction. Right Atrium: The right atrium is normal in size. Aortic Valve: Normal structure of the aortic valve. Mitral Valve: Normal structure of the mitral valve. Pulmonic Valve: Normal structure of the pulmonic valve. Tricuspid Valve: Normal structure of the tricuspid valve. Moderate pulmonary hypertensionbased on right ventricular systolic pressure. Estimated peak RVSP is 50 mmHg. Mildtricuspid regurgitation. Pericardium: Normal pericardium with no significant pericardial effusion. Aorta: Normal aortic root. IVC: Dilated IVC with respiratory collapse consistent with elevated rightatrial pressure (10-15 mmHg). Pulmonary Artery: Normal pulmonary artery size. Conclusions: Normal left ventricular size. Normal left ventricular systolic functionwith no focal wall motion abnormalities. Ejection fraction is measured at 65 %. Normal structure of the tricuspid valve. Moderate pulmonary hypertensionbased on right ventricular systolic pressure. Estimated peak RVSP is 50 mmHg. Mildtricuspid regurgitation. Dilated IVC with respiratory collapse consistent with elevated rightatrial pressure (10-15 mmHg). Electronically Signed By: Audie Gould MD, [facility] 2022-12-08 16:07:58 CDT CC: CC: us Clayton Lainez Jr., MD CV ECHO PROCEDURES [facility] Result * POCT glucose (12/08/2022 12:22 PM CDT) Pathologist [facility] Glucose, POC 145 70 - 199 mg/dL NIL[facility] Blood 12/08/2022 12:2 2 PM CDT 12/08/2022 12:22 PM CDT us Bev Adames MD LAB POCT ORDERABLES - DEVIC E Final Result Performing Organization Address City/State/[facility] Co de Phone Number [facility] [address] [facility] Department [place] [address] * eGFR (12/08/2022 8:01 AM CDT) eGFR 19 mL/min/1. 73 m2 NILSA Comment: Interpretive Data [...] interpretive data was last reviewed 2021. Blood 12/08/2022 8:01 AM CDT 12/08/2022 8:50 AM CDT us Robert Hernandez MD LAB BLOOD ORDERABLES F inal Result [facility] [id number] Department [place] [address] * Differential, auto (12/08/2022 8:01 AM CDT) Neutrophil abs 4.5 1.7 - 6.5 K/cumm [facility] Imm gran abs 0.0 0.0 - 0.1 K/cumm [facility] Lymphocyte abs 2.3 0.8 - 3.3 K/cumm [facility] Monocyte abs 0.8 0.2 - 0.8 K/cumm [facility] Eosinophil abs 0.2 0.0 - 0.5 K/cumm [facility] Basophil abs 0.0 0.0 - 0.1 K/cumm [facility] Neutrophil pct 56.6 % [facility] Comment: Interpretive Data Percent cell count reference ranges are not reported, since discordance with absolute values may lead to misinterpretation of CBC data. Current Interpretive Data was last revised on 2017. Imm gran pct 0.4 % [facility] Comment: Interpretive Data Percent cell count reference ranges are not reported, since discordance with absolute values may lead to misinterpretation of CBC data. Current Interpretive Data was last revised on 2017. Lymphocyte pct 29.1 % [facility] Comment: Interpretive Data Percent cell count reference ranges are not reported, since discordance with absolute values may lead to misinterpretation of CBC data. Current Interpretive Data was last revised on 2017. Monocyte pct 10.4 % [facility] Comment: Interpretive Data Percent cell count reference ranges are not reported, since discordance with absolute values may lead to misinterpretation of CBC data. Current Interpretive Data was last revised on 2017. Eosinophil pct 3.0 % [facility] Comment: Interpretive Data Percent cell count reference ranges are not reported, since discordance with absolute values may lead to misinterpretation of CBC data. Current Interpretive Data was last revised on 2017. Basophil pct 0.5 % [facility] Comment: Interpretive Data Percent cell count reference ranges are not reported, since discordance with absolute values may lead to misinterpretation of CBC data. Current Interpretive Data was last revised on 2017. Blood 12/08/2022 8:01 AM CDT 12/08/2022 8:50 AM CDT Robert Hernandez MD LAB BLOOD ORDERABLES F inal Result Performing Organization Address [facility] Co de Phone Number NILSA [address] [facility] [place] [address] * Magnesium (12/08/2022 8:01 AM CDT) Magnesium 2.4 1.4 - 2.5 mg/dL [facility] Blood 12/08/2022 8:01 AM CDT 12/08/2022 8:50 AM CDT Robert Hernandez MD LAB BLOOD ORDERABLES F inal Result Performing Organization Address City/[facility]/ZIP Co de Phone Number NILSA [address] Department [employer] [place], [place] [id number] * (ABNORMAL) Renal function panel (12/08/2022 8:01 AM CDT) Sodium 141 135 - 145 mmol/L [facility] Potassium, pl 4.6 3.3 - 4.9 mmol/L [facility] Chloride 109 97 - 110 mmol/L [facility] CO2 20(L) 22 - 32 mmol/L [facility] Anion gap 12 2 - 15 mmol/L [facility] BUN 67(H) 8 - 25 mg/dL [facility] Creatinine 2.58(H) 0.60 - 1.10 mg/dL [facility] Glucose 119 70 - 199 mg/dL [facility] Comment: [...] 2022. Calcium 9.2 8.5 - 10.3 mg/dL [facility] Phosphorus, pl 5.5(H) 2.3 - 4.5 mg/dL [facility] Albumin 2.9(L) 3.5 - 5.0 g/dL [facility] Blood 12/08/2022 8:01 AM CDT 12/08/2022 8:50 AM CDT us Robert Hernandez MD LAB BLOOD ORDERABLES F inal Result NILSA [address] Department [place] [address] * (ABNORMAL) CBC with auto differential (12/08/2022 8:01 AM CDT) WBC 8.0 3.8 - 9.9 K/cumm [facility] Hgb 7.2(L) 11.9 - 15.5 g/dL [facility] Hct 23.2(L) 35.6 - 45.5 % [facility] Plt 294 150 - 400 K/cumm [facility] MPV 11.3 9.1 - 12.3 fL [facility] RBC 2.41(L) 3.90 - 5.20 M/cumm [facility] MCV 96.3 81.3 - 96.4 fL [facility] MCH 29.9 27.1 - 33.3 pg [facility] MCHC 31.0(L) 32.3 - 35.7 g/dL [facility] RDW CV 16.1(H) 11.1 - 14.9 % [facility] RDW SD 56.7(H) 35.7 - 48.1 fL [facility] NRBC abs 0.02(H) 0.00 - 0.01 K/cumm [facility] Blood 12/08/2022 8:01 AM CDT 12/08/2022 8:50 AM CDT Robert Hernandez MD LAB BLOOD ORDERABLES F inal Result Performing Organization Address City/[facility]/ZIP Co de Phone Number [facility] [address] [facility] [place] [address] * POCT glucose (12/08/2022 7:35 AM CDT) Glucose, POC 127 70 - 199 mg/dL [facility] Blood 12/08/2022 7:35 AM CDT 12/08/2022 7:35 AM CDT Bev Adames MD LAB POCT ORDERABLES - DEVIC E Final Result Performing Organization Address City/[facility]/ZIP Co de Phone Number [facility] [phone] [facility] [employer] [place], [place] [id number] * POCT glucose (12/08/2022 2:28 AM CDT) Glucose, POC 145 70 - 199 mg/dL [facility] Blood 12/08/2022 2:28 AM CDT 12/08/2022 2:28 AM CDT Result [facility] Bev Adames MD LAB POCT ORDERABLES - DEVIC E Final Result Performing Organization Address [facility] de Phone Number [facility] [address] [address] [facility] [place] [address] * (ABNORMAL) Urinalysis, microscopic only (12/07/2022 9:08 PM CDT) WBC, ur >50(A) 0 - 5 /HPF [facility] RBC, ur 3-5(A) 0 - 2 /HPF [facility] Epithelial cells, squamous, ur 1-5 0 - 5 /HPF [facility] Hyaline casts, ur 1-5 0 - 10 /LPF [facility] Urine 12/07/2022 9:08 PM CDT 12/07/2022 9:11 PM CDT Result [facility] Jimbo Strauss MD LAB URINE ORDERABLES Final Resu lt Performing Organization Address [facility] de Phone Number [facility] [address] [facility] [place] [address] * (ABNORMAL) Protein / creatinine ratio, urine, random (12/07/2022 9:08 PM CDT) Protein, ur, quant 184.1 mg/dL [facility] Comment: Interpretive Data No reference range established. Current interpretive data was last revised 2018. Creatinine Ur 75.7 mg/dL [facility] Comment: Interpretive Data No reference range established. Current interpretive data was last revised 2018. Protein/creatinin e ratio 2,432.0(H ) 0.0 - 180.0 mg/g CR [facility] Urine 12/07/2022 9:08 PM CDT 12/07/2022 9:11 PM CDT Jimbo Strauss MD LAB URINE ORDERABLES Final Resu lt Performing Organization Address [facility] de Phone Number NILSA MCDONNELL [address] Department [place] [address] * (ABNORMAL) Urinalysis reflex to microscopic (12/07/2022 9:08 PM CDT) Color, ur Yellow Yellow [facility] Clarity, ur Cloudy(A) Clear [facility] Specific gravity, ur 1.012 1.003 - 1.030 [facility] pH, urine 5.0 [facility] Protein, ur ql 2+(A) Negative [facility] Glucose, ur ql Negative Negative [facility] Ketones, ur Negative Negative [facility] Bilirubin, ur Negative Negative [facility] Blood, ur Negative Negative [facility] Urobilinogen, ur <2.0 <2.0 mg/dL [facility] Nitrite, ur Negative Negative [facility] Leukocyte esterase, ur 4+(A) Negative [facility] UA reflex comment Reflex to microscopic UA will be performed. [facility] Urine 12/07/2022 9:08 PM CDT 12/07/2022 9:11 PM CDT Narrative [facility] - 12/07/2022 9:20 PM CDT ?? Urine pH is affected by diet, medications, systemic acid-base disturbances, and renal tubular function. ??pH may affect urinary stone formation. ??For example, urine pH below 6.0 may help reduce the tendency for calcium phosphate stones and pH greater than 6.0 may reduce the tendency for uric acid stone formation. Source: [facility] [employer]. Last revised 07-02-2017 Jimbo Strauss MD LAB URINE ORDERABLES Final Resu lt NILSA MCDONNELL [address] Department [place] [address] * POCT glucose (12/07/2022 8:52 PM CDT) Glucose, POC 165 70 - 199 mg/dL [facility] Blood 12/07/2022 8:52 PM CDT 12/07/2022 8:52 PM CDT Bev Adames MD LAB POCT ORDERABLES - DEVIC E Final Result NILSA MCDONNELL [address] Department [place] [address] * (ABNORMAL) POCT glucose (12/07/2022 5:25 PM CDT) Glucose, POC 205(H) 70 - 199 mg/dL NILSA MCDONNELL Blood 12/07/2022 5:25 PM CDT 12/07/2022 5:25 PM CDT Bev Adames MD LAB POCT ORDERABLES - DEVIC E Final Result Performing Organization Address [facility] Co de Phone Number NILSA MCDONNELL [address] Department [place] [address] * XR Chest PA Lateral 2 Views (12/07/2022 2:25 PM CDT) Anatomical Region Laterality Modality Body, Chest N/A Computed Radiogr aphy 12/07/2022 3:04 PM CDT Impressions 12/07/2022 3:04 PM CDT Tiny right effusion. Electronically signed by: Arabella Ma M.D. Narrative 12/07/2022 3:04 PM CDT EXAMINATION: XR CHEST PA LATERAL 2 VIEWS HISTORY: The patient is a 72 year old female who presents with shortness of breath. ??Comparison is made with the previous study dated 12/06/2022. TECHNIQUE: AP and lateral portable view of the chest. FINDINGS: There is a tiny right effusion. ??The remainder of the lungs are clear. ??Heart not enlarged. ??Aortic atherosclerosis. ??No failure. The tip of a left PICC line is in the distal superior vena cava. Procedure Note Arabella Ma MD - 12/07/2022 EXAMINATION: XR CHEST PA LATERAL 2 VIEWS HISTORY: The patient is a 72 year old female who presents with shortness of breath. Comparison is made with the previous study dated 12/06/2022. TECHNIQUE: AP and lateral portable view of the chest. FINDINGS: There is a tiny right effusion. The remainder of the lungs are clear. Heart not enlarged. Aortic atherosclerosis. No failure. The tip of a left PICC line is in the distal superior vena cava. IMPRESSION: Tiny right effusion. Electronically signed by: Arabella Ma M.D. Result [facility] Robert Hernandez MD IMG XR PROCEDURES [facility] Result * POCT glucose (12/07/2022 12:21 PM CDT) Glucose, POC 166 70 - 199 mg/dL [facility] Blood 12/07/2022 12:2 1 PM CDT 12/07/2022 12:21 PM CDT Result [facility] Bev Adames MD LAB POCT ORDERABLES - DEVIC E Final Result Performing Organization Address City/[facility] Co de Phone Number [facility] [address] Department [place] [address] * POCT glucose (12/07/2022 8:25 AM CDT) Glucose, POC 166 70 - 199 mg/dL [facility] Blood 12/07/2022 8:25 AM CDT 12/07/2022 8:25 AM CDT Result [facility] Bev Adames MD LAB POCT ORDERABLES - DEVIC E Final Result Performing Organization Address City/[facility] Co de Phone Number [facility] [address] Department [place] [address] * (ABNORMAL) Troponin T high-sensitivity (12/07/2022 12:24 AM CDT) Trop T hs 32(H) <=14 ng/L [facility] Comment: Interpretive Data For further hscTnT resources including the diagnostic algorithm and an aid in interpretation, copy and paste this link: https://nrl.testcatalog.org/show/hsTrop Current Interpretive Data last revised 2020. Blood 12/07/2022 12:2 4 AM CDT 12/07/2022 12:27 AM CDT Robert Hernandez MD LAB BLOOD ORDERABLES F inal Result Performing Organization Address [facility]/ZIP Co de Phone Number [facility] [address] Department [employer] [place], [place] [id number] * POCT glucose (12/06/2022 8:07 PM CDT) Glucose, POC 189 70 - 199 mg/dL [facility] Blood 12/06/2022 8:07 PM CDT 12/06/2022 8:07 PM CDT Darlyn Guzman MD LAB POCT ORDERABLES - DEVICE Final Result Performing Organization Address [facility] de Phone Number [facility] [address] [place] [address] * (ABNORMAL) Troponin T high-sensitivity 2-hour (12/06/2022 4:29 PM CDT) Trop T hs 33(H) <=14 ng/L [facility] Comment: Interpretive Data For further hscTnT resources including the diagnostic algorithm and an aid in interpretation, copy and paste this link: https://nrl.testcatalog.org/show/hsTrop Current Interpretive Data last revised 2020. Trop T hs delta -2 ng/L [facility] Trop T hs interp Insignificant [facility] Blood 12/06/2022 4:29 PM CDT 12/06/2022 4:36 PM CDT Lucy Lucero MD LAB BLOOD ORDERABLES Fi nal Result Performing Organization Address [facility]/ZIP Co de Phone Number [facility] [address] Department [place] [address] * XR Chest 1 Vw Portable (12/06/2022 3:50 PM CDT) Anatomical Region Laterality Modality Body, Chest N/A Computed Radiogr aphy 12/06/2022 7:21 PM CDT Impressions 12/06/2022 7:21 PM CDT Interval development of bilateral pleural effusions and bibasilar consolidation. Electronically signed by: Wilner Rodriguez M.D. Narrative 12/06/2022 7:21 PM CDT EXAM: ?? XR CHEST 1 VIEW DATE: ?? 12/06/2022 3:00 PM CLINICAL HISTORY: ?? Shortness of breath. COMPARISON: ?? 11/30/2022 FINDINGS: ?? Portable AP radiograph of the chest was obtained. ??The heart size is normal. ??The lungs are well-expanded. ??There are bilateral pleural effusions and there is consolidation in both lung bases. ??The upper lung cavanaugh are clear. Procedure Note Wilner Rodriguez MD - 12/06/2022 EXAM: XR CHEST 1 VIEW DATE: 12/06/2022 3:00 PM CLINICAL HISTORY: Shortness of breath. COMPARISON: 11/30/2022 FINDINGS: Portable AP radiograph of the chest was obtained. The heart size is normal. The lungs are well-expanded. There are bilateral pleural effusions and there is consolidation in both lung bases. The upper lung cavanaugh are clear. IMPRESSION: Interval development of bilateral pleural effusions and bibasilar consolidation. Electronically signed by: Wilner Rodriguez M.D. Lucy Lucero MD IMG XR PROCEDURES Final Result * (ABNORMAL) POCT glucose (12/06/2022 2:52 PM CDT) Glucose, POC 222(H) 70 - 199 mg/dL NILSA Blood 12/06/2022 2:52 PM CDT 12/06/2022 2:52 PM CDT Lucy Lucero MD LAB POCT ORDERABLES - D EVICE Final Result NILSA [address] Department [place] [address] * eGFR (12/06/2022 2:51 PM CDT) eGFR 21 mL/min/1. 73 m2 N[facility] MCDONNELL Comment: Interpretive Data Reference Interval Normal ?>/= [...] interpretive data was last reviewed 2021. Blood 12/06/2022 2:51 PM CDT 12/06/2022 2:59 PM CDT us Lucy Lucero MD LAB BLOOD ORDERABLES Fi nal Result NILSA [address] Department [place] [address] * Differential, auto (12/06/2022 2:51 PM CDT) Neutrophil abs 5.9 1.7 - 6.5 K/cumm NILSA MCDONNELL Imm gran abs 0.0 0.0 - 0.1 K/cumm [facility] Lymphocyte abs 1.8 0.8 - 3.3 K/cumm [facility] Monocyte abs 0.7 0.2 - 0.8 K/cumm [facility] Eosinophil abs 0.2 0.0 - 0.5 K/cumm [facility] Basophil abs 0.0 0.0 - 0.1 K/cumm [facility] Neutrophil pct 68.7 % [facility] Comment: Interpretive Data Percent cell count reference ranges are not reported, since discordance with absolute values may lead to misinterpretation of CBC data. Current Interpretive Data was last revised on 2017. Imm gran pct 0.5 % [facility] Comment: Interpretive Data Percent cell count reference ranges are not reported, since discordance with absolute values may lead to misinterpretation of CBC data. Current Interpretive Data was last revised on 2017. Lymphocyte pct 20.5 % [facility] Comment: Interpretive Data Percent cell count reference ranges are not reported, since discordance with absolute values may lead to misinterpretation of CBC data. Current Interpretive Data was last revised on 2017. Monocyte pct 7.8 % [facility] Comment: Interpretive Data Percent cell count reference ranges are not reported, since discordance with absolute values may lead to misinterpretation of CBC data. Current Interpretive Data was last revised on 2017. Eosinophil pct 2.0 % [facility] Comment: Interpretive Data Percent cell count reference ranges are not reported, since discordance with absolute values may lead to misinterpretation of CBC data. Current Interpretive Data was last revised on 2017. Basophil pct 0.5 % [facility] Comment: Interpretive Data Percent cell count reference ranges are not reported, since discordance with absolute values may lead to misinterpretation of CBC data. Current Interpretive Data was last revised on 2017. Blood 12/06/2022 2:51 PM CDT 12/06/2022 2:59 PM CDT us Lucy Lucero MD LAB BLOOD ORDERABLES Fi nal Result NILSA [address] Department [place] [address] * (ABNORMAL) Troponin T high-sensitivity series (baseline, 2hr, 4hr, 6hr) (12/06/2022 2:51 PM CDT) Trop T hs 35(H) <=14 ng/L [facility] Comment: Interpretive Data For further hscTnT resources including the diagnostic algorithm and an aid in interpretation, copy and paste this link: https://nrl.testcatalog.org/show/hsTrop Current Interpretive Data last revised 2020. Blood 12/06/2022 2:51 PM CDT 12/06/2022 2:59 PM CDT Lucy Lucero MD LAB BLOOD ORDERABLES Fi nal Result [facility] [address] Department [place] [address] * (ABNORMAL) Comprehensive metabolic panel (12/06/2022 2:51 PM CDT) Sodium 137 135 - 145 mmol/L [facility] Pot[facility], pl 5.1(H) 3.3 - 4.9 mmol/L [facility] Chloride 106 97 - 110 mmol/L [facility] CO2 20(L) 22 - 32 mmol/L [facility] Anion gap 11 2 - 15 mmol/L [facility] BUN 51(H) 8 - 25 mg/dL [facility] Creatinine 2.37(H) 0.60 - 1.10 mg/dL [facility] Glucose 206(H) 70 - 199 mg/dL [facility] Comment: Interpretive Data Fasting glucose >/= [...] 2022. Calcium 9.2 8.5 - 10.3 mg/dL [facility] Bilirubin, total <0.2 0.1 - 1.2 mg/dL [facility] Protein, pl 7.6 6.5 - 8.5 g/dL [facility] Albumin 3.2(L) 3.5 - 5.0 g/dL [facility] Alk phos 100 40 - 130 Units/L [facility] ALT 10 7 - 45 Units/L [facility] AST 14 10 - 45 Units/L [facility] Blood 12/06/2022 2:51 PM CDT 12/06/2022 2:59 PM CDT us Lucy Lucero MD LAB BLOOD ORDERAB[place] [id number] [address] Department [place] [address] * (ABNORMAL) Pro B-type natriuretic peptide (12/06/2022 2:51 PM CDT) NT-proBNP 633(H) <=300 pg/mL [facility] Comment: Interpretive Comments: A. Dyspnea in Acute [...] Interpretive Data Last Revised Date: 2018. Blood 12/06/2022 2:51 PM CDT 12/06/2022 2:59 PM CDT us Lucy Lucero MD LAB BLOOD ORDERABLES Formerly [facility] Result [facility] [id number] [address] Department [place] [address] * (ABNORMAL) CBC with auto differential (12/06/2022 2:51 PM CDT) WBC 8.6 3.8 - 9.9 K/cumm [facility] Hgb 7.7(L) 11.9 - 15.5 g/dL [facility] Hct 25.2(L) 35.6 - 45.5 % [facility] Plt 288 150 - 400 K/cumm [facility] MPV 11.0 9.1 - 12.3 fL [facility] RBC 2.62(L) 3.90 - 5.20 M/cumm [facility] MCV 96.2 81.3 - 96.4 fL [facility] MCH 29.4 27.1 - 33.3 pg [facility] MCHC 30.6(L) 32.3 - 35.7 g/dL [facility] CV 15.8(H) 11.1 - 14.9 % [facility] SD 54.5(H) 35.7 - 48.1 fL [facility] NRBC abs 0.00 0.00 - 0.01 K/cumm [facility] Blood 12/06/2022 2:51 PM CDT 12/06/2022 2:59 PM CDT Lucy Lucero MD LAB BLOOD ORDERABLES Fi nal Result NILSA [id number] [address] Department [place] [address] * ECG 12 lead (12/06/2022 2:06 PM CDT) 12/06/2022 2:06 PM CDT Narrative [facility] - 12/06/2022 5:00 PM CDT Vent Rate: 68 bpm RR Interval: 873 msec MO Interval: 175 msec QRS Duration: 73 msec QT Interval: 422 msec QTC Interval: 440 msec P-R-T [place]: 98 - 20 - 20 degrees SINUS RHYTHM LOW QRS VOLTAGE IN PRECORDIAL LEADS ??[QRS DEFLECTION < 1.0 mV IN CHEST LEADS] BORDERLINE ECG Compared to previous ECG the low-voltage is new Electronically Signed By: Audie Gould MD, [facility] Lucy Lucero MD ECG ORDERABLES Edited Result - Final [facility] [employer] [facility] documented in this encounter Visit Diagnoses Diagnosis Shortness of breath Acute systolic congestive heart failure (CMS/HCC) (HCC) Osteomyelitis of great toe of right foot (CMS/HCC) (HCC) Amputation of toe of right foot (CMS/HCC) (HCC) Acute on chronic diastolic congestive heart failure (CMS/HCC) (HCC) 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 2 diabetes mellitus (CMS/HCC) (HCC) BRENDA (acute kidney injury) (HCC) Osteomyelitis of great toe of right foot (CMS/HCC) (HCC) Bibasilar consolidations Nonspecific (abnormal) findings on radiological and other examination of lung field Type 2 diabetes mellitus with diabetic neuropathy, with long-term current use of insulin (CMS/HCC) (HCC) Schizoaffective disorder, bipolar type (CMS/HCC) (HCC) Schizoaffective disorder, unspecified condition Movement disorder 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 Late onset Alzheimer's dementia without behavioral disturbance (HCC) Shortness of breath Anemia, unspecified type Gastritis without bleeding, unspecified chronicity, unspecified gastritis type documented in this encounter Admitting Diagnoses Diagnosis Acute congestive heart failure, unspecified heart failure type (HCC) Shortness of breath documented in this encounter Administered Medications Inactive Administered Medications - up to 3 most recent administrations Medication Order MAR Action Action Date Dose Rate Site amLODIPine (NORVASC) tablet 10 mg 10 mg, oral, Nightly, First dose (after last modification) on 12/06/22 at 2100 Given 12/13/2022 9:21 PM CDT 10 mg Given 12/12/2022 8:03 PM CDT 10 mg Given 12/11/2022 9:45 PM CDT 10 mg aspirin chewable tablet 81 mg 81 mg, oral, Daily, First dose on [place]ie 12/18/22 at 0900 Given 12/18/2022 9:26 AM CDT 81 mg atorvastatin (LIPITOR) tablet 20 mg 20 mg, oral, Nightly, First dose on 12/07/22 at 2100 Given 12/18/2022 9:26 PM CDT 20 mg Given 12/17/2022 8:59 PM CDT 20 mg Given 12/16/2022 9:50 PM CDT 20 mg benztropine (COGENTIN) tablet 1.5 mg 1.5 mg, oral, Nightly, First dose (after last modification) on 12/07/22 at 2100 Given 12/18/2022 9:26 PM CDT 1.5 mg Given 12/17/2022 8:58 PM CDT 1.5 mg Given 12/16/2022 9:50 PM CDT 1.5 mg carvediloL (COREG) tablet 12.5 mg 12.5 mg, oral, 2 times daily with meals (bkfst, dinner), First dose (after last modification) on 12/07/22 at 0800 Given 12/10/2022 5:56 PM CDT 12.5 mg Given 12/10/2022 8:30 AM CDT 12.5 mg Given 12/09/2022 5:14 PM CDT 12.5 mg carvediloL (COREG) tablet 6.25 mg 6.25 mg, oral, 2 times daily with meals (bkfst, dinner), First dose (after last modification) on Kellie 12/11/22 at 0815 Given 12/18/2022 5:38 PM CDT 6.25 mg Given 12/18/2022 9:17 AM CDT 6.25 mg Given 12/17/2022 5:22 PM CDT 6.25 mg cefepime (MAXIPIME) 2,000 mg in sodium chloride 0.9% 100 mL IVPB 2,000 mg, intravenous, at 200 mL/hr, Administer over 30 Minutes, Every 24 hours scheduled, First dose on [place] 12/07/22 at 1415, Mini-Bag Plus bag, Indications: Pneumonia, AspirationIndications:Pneumonia, Aspiration New Bag 12/11/2022 10:26 AM CDT 2,000 mg 200 mL/hr New Bag 12/10/2022 8:30 AM CDT 2,000 mg 200 mL/hr New Bag 12/09/2022 9:13 AM CDT 2,000 mg 200 mL/hr cefTRIAXone (ROCEPHIN) 2,000 mg/20 mL in sterile water (premix) 2,000 mg 2,000 mg, intravenous, at 1,200 mL/hr, Administer over 1 Minutes, Every 24 hours scheduled, First dose (after last modification) on [facility] 12/06/22 at 1945, Indications: Other (complete free text reason below), OsteomyelitisIndications:Other (complete free text reason below),Osteomyelitis Given 12/07/2022 10:35 AM CDT 2,000 mg 1200 mL/h r Given 12/06/2022 8:07 PM CDT 2,000 mg 1200 mL/hr DAPTOmycin (CUBICIN) 50 mg/mL sodium chloride 0.9% 350 mg 350 mg (rounded from 369.6 mg = 6 mg/kg ? 61.6 kg Adjusted weight), intravenous, at 210 mL/hr, Administer over 2 Minutes, Every 48 hours, First dose on Thu12/16/22 at 1400, Do not administer or mix with dextrose-containing solutions, Indications: Bone/Joint InfectionIndications:Bone/Joint Infection Given 12/18/2022 3:59 PM CDT 350 mg 210 mL/hr Given 12/16/2022 3:49 PM CDT 350 mg 210 mL/hr dextrose (D10W) 10% bolus 250 mL 250 mL, intravenous, at 1,000 mL/hr, Administer over 15 Minutes, Every 15 min PRN, blood glucose less than 70 mg/dL and UNABLE to swallow/take PO glucose/juice., Starting on 12/06/22 at 1904, After treatment for hypoglycemia, recheck BG followed by treatment every 15 minutes until the BG is greater than 100 mg/dL. Then check BG 1 hour post treatment. If BG is less than 100 mg/dL, repeat Q15 minute BG checks and treatment. Call MD for each episode of hypoglycemia., Indications: hypoglycemic disorderIndications:hypoglycemic disorder dextrose oral liquid liquid 15 g 15 g, oral, Every 15 min PRN, low blood sugar, blood glucose less than 70 mg/dL, Starting on 12/06/22 at 1904, If patient is alert and able to [...] episode of hypoglycemia., Indications: hypoglycemic disorderIndications:hypoglycemic disorder Given 12/11/2022 5:10 PM CDT 15 g doxycycline monohydrate (MONODOX) capsule 100 mg 100 mg, oral, 2 times daily (for quinolones,etc), First dose (after last modification) on 12/06/22 at 1945, Give 2 hrs before or 2 hrs after MVI, antacids, or other products containing sucralfate, magnesium, aluminum, iron, or zinc. May be taken without regard to meals., Indications: Skin/Soft Tissue InfectionIndications:Skin/Soft Tissue Infection Given 12/08/2022 5:41 AM CDT 100 mg Given 12/07/2022 6:02 PM CDT 100 mg Given 12/07/2022 5:28 AM CDT 100 mg famotidine (PEPCID) tablet 10 mg 10 mg, oral, Daily, First dose (after last modification) on Thu12/07/22 at 0900 Given 12/18/2022 9:17 AM CDT 10 mg Given 12/17/2022 9:52 AM CDT 10 mg Given 12/16/2022 9:52 AM CDT 10 mg ferric gluconate (FERRLECIT) 125 mg of elemental iron in sodium chloride 0.9% 100 mL IVPB 125 mg of elemental iron, intravenous, at 110 mL/hr, Administer over 60 Minutes, 3 times weekly (Once per day on Thu), First dose on Thu12/08/22 at 0900, Room temperature only New Bag 12/17/2022 10:13 AM CDT 125 mg of elemental iron 110 mL/hr New Bag 12/15/2022 9:36 AM CDT 125 mg of elemental iron 110 mL/hr New Bag 12/12/2022 9:12 AM CDT 125 mg of elemental iron 110 mL/hr ferrous sulfate delayed release tablet 65 mg of elemental iron 65 mg of elemental iron, oral, Daily with breakfast, First dose on Thu12/07/22 at 0800, 325 MG OF FERROUS SULFATE = 65 MG OF ELEMENTAL IRON, Indications: Iron Deficiency AnemiaIndications:Iron Deficiency Anemia Given 12/18/2022 9:17 AM CDT 65 mg of elemental iron Given 12/17/2022 9:53 AM CDT 65 mg of elemental iron Given 12/16/2022 9:53 AM CDT 65 mg of elemental iron furosemide (LASIX) 10 mg/mL injection 40 mg 40 mg, intravenous, Every 12 hours scheduled, First dose on Thu12/06/22 at 1608, Room temperature only Given 12/09/2022 9:13 AM CDT 40 mg Given 12/08/2022 8:21 PM CDT 40 mg Given 12/08/2022 9:48 AM CDT 40 mg furosemide (LASIX) tablet 40 mg 40 mg, oral, 2 times daily (for diuretics), First dose on Thu12/10/22 at 0900 Given 12/14/2022 9:28 AM CDT 40 mg Given 12/13/2022 2:50 PM CDT 40 mg Given 12/13/2022 9:16 AM CDT 40 mg furosemide (LASIX) tablet 60 mg 60 mg, oral, 2 times daily (for diuretics), First dose (after last modification) on 12/14/22 at 1600 Given 12/18/2022 3:59 PM CDT 60 mg Given 12/18/2022 9:26 AM CDT 60 mg Given 12/17/2022 5:22 PM CDT 60 mg heparin 5,000 unit/mL injection 5,000 Units 5,000 Units, subcutaneous, Every 8 hours scheduled, First dose (after last modification) on 12/06/22 at 2200, Indications: Deep Vein Thrombosis PreventionIndications:Deep Vein Thrombosis Prevention Given 12/18/2022 9:29 PM CDT 5,000 Units Left Upper Abdomen Given 12/18/2022 4:10 PM CDT 5,000 Units L eft Lower Abdomen Given 12/18/2022 6:33 AM CDT 5,000 Units L eft Lower Abdomen insulin glargine (LANTUS, SEMGLEE) 100 unit/mL injection 15 Units 15 Units, subcutaneous, Nightly, First dose on 12/07/22 at 0045, Do not mix with other insulins Given 12/18/2022 9:26 PM CDT 15 Units Left Lower Abdomen Given 12/17/2022 9:00 PM CDT 15 Units Le ft Lower Abdomen Given 12/16/2022 9:50 PM CDT 15 Units Ri ght Lower Abdomen insulin lispro (HumaLOG, ADMELOG) 100 unit/mL injection 0-4 Units 0-4 Units, subcutaneous, Nightly, First dose on 12/06/22 at 2100, Blood glucose mg/dL: 199 or less: No insulin 200-249: add 1 unit 250-299: add 2 units 300-349: add 3 units and notify physician for adjustment of insulin orders. 350-399: add 4 units and notify physician for adjustment of insulin orders. Over 400: Notify physician for adjustment of insulin orders. Do NOT hold for NPO Status, Indications: Diabetes MellitusIndications:Diabetes Mellitus Given 12/18/2022 9:25 PM CDT 3 Units Left Upper Arm Given 12/17/2022 9:00 PM CDT 1 Units Le ft Lower Abdomen Given 12/14/2022 9:01 PM CDT 1 Units Le ft Lower Abdomen insulin lispro (HumaLOG, ADMELOG) 100 unit/mL injection 0-5 Units 0-5 Units, subcutaneous, 3 times daily with meals, First dose on Thu12/07/22 at 0800, Blood glucose mg/dL: 149 or [...] NPO Status, Indications: Diabetes MellitusIndications:Diabetes Mellitus Given 12/18/2022 5:38 PM CDT 2 Units Left Upper Arm Given 12/18/2022 1:15 PM CDT 2 Units Ri ght Upper Arm Given 12/17/2022 5:23 PM CDT 2 Units Ri ght Upper Arm insulin lispro (HumaLOG, ADMELOG) 100 unit/mL injection 7 Units 7 Units, subcutaneous, 3 times daily with meals, First dose on Thu12/07/22 at 0800 Given 12/18/2022 5:37 PM CDT 7 Units Left Upper Arm Given 12/18/2022 1:15 PM CDT 7 Units Ri ght Upper Arm Given 12/18/2022 9:18 AM CDT 7 Units Ri ght Upper Arm metOLazone (ZAROXOLYN) tablet 2.5 mg 2.5 mg, oral, 2 times daily (for diuretics), First dose on 12/14/22 at 1330, For 4 doses Given 12/16/2022 9:52 AM CDT 2.5 mg Given 12/15/2022 5:09 PM CDT 2.5 mg Given 12/15/2022 9:16 AM CDT 2.5 mg metroNIDAZOLE (FLAGYL) tablet 500 mg 500 mg, oral, 3 times daily, First dose on [facility] 12/08/22 at 1715, Indications: Bone/Joint InfectionIndications:Bone/Joint Infection Given 12/18/2022 9:26 PM CDT 50 0 mg Given 12/18/2022 4:01 PM CDT 500 mg Given 12/18/2022 6:39 AM CDT 500 mg ondansetron (ZOFRAN) injection 4 mg 4 mg, intravenous, Administer over 2 Minutes, Every 6 hours PRN, nausea, vomiting, Starting on 12/12/22 at 2020 Given 12/12/2022 8:37 PM CDT 4 mg pregabalin (LYRICA) capsule 75 mg 75 mg, oral, Nightly, First dose (after last modification) on 12/06/22 at 2100 Given 12/18/2022 9:26 PM CDT 75 mg Given 12/17/2022 8:58 PM CDT 75 mg Given 12/16/2022 9:50 PM CDT 75 mg risperiDONE (RisperDAL) tablet 2 mg 2 mg, oral, Nightly, First dose (after last modification) on 12/07/22 at 2100 Given 12/18/2022 9:26 PM CDT 2 mg Given 12/17/2022 8:58 PM CDT 2 mg Given 12/16/2022 9:50 PM CDT 2 mg vancomycin 1,000 mg/200 mL in dextrose 5% (premix) 1,000 mg 1,000 mg, intravenous, Administer over 60 Minutes, Once, On 12/15/22 at 0600, For 1 dose, Vancomycin dosed per pharmacy protocol., Indications: Bone/Joint InfectionIndications:Bone/Joint Infection New Bag 12/15/2022 6:30 AM CDT 1,000 mg 200 mL/hr vancomycin 1250 mg/250 mL in sodium chloride 0.9% (premix) 1,250 mg 1,250 mg (rounded from 1,183.5 mg = 15 mg/kg ? 78.9 kg), intravenous, Administer over 60 Minutes, Once, On [place] 12/11/22 at 1000, For 1 dose, Indications: Bone/Joint InfectionIndications:Bone/Joint Infection New Bag 12/11/2022 12:00 PM CDT 1,250 mg vancomycin 2,000 mg/520 mL in sodium chloride 0.9% (premix) 2,000 mg 2,000 mg (rounded from 1,972.5 mg = 25 mg/kg ? 78.9 kg), intravenous, Administer over 120 Minutes, Once, On 12/08/22 at 1715, For 1 dose, Indications: Bone/Joint InfectionIndications:Bone/Joint Infection New Bag 12/08/2022 8:16 PM CDT 2,000 mg 250 mL/hr documented in this encounter Discontinued Medications Medication Sig Discontinue Reason Start Date End Da te insulin glargine 100 unit/mL (3 mL) pen for injection Inject 25 Units under the skin nightly To start once blood sugars are consistently above 200 Reorder 12/05/2022 12/10/2022 amLODIPine (NORVASC) 10 mg tablet Take 1 tablet (10 mg total) by mouth nightly Reorder 12/10/2022 12/11/2022 metroNIDAZOLE (FLAGYL) 500 mg tabletIndications:Bon e/Joint Infection Take 1 tablet (500 mg total) by mouth 3 (three) times a day for 13 days Reorder 12/10/2022 12/11/2022 amLODIPine (NORVASC) 10 mg tablet Take 1 tablet (10 mg total) by mouth nightly Reorder 12/11/2022 12/15/2022 DAPTOmycin (CUBICIN) 50 mg/mL injectionIndications: Bone/Joint Infection Infuse 7.4 mL (370 mg total) into a venous catheter every other day for 7 days Reorder 12/16/2022 12/18/2022 carvediloL (COREG) 12.5 mg tablet Take 1 tablet (12.5 mg total) by mouth 2 (two) times a day with meals Stop Taking at Discharge 11/13/2022 12/18/2022 magnesium hydroxide (MILK OF MAGNESIA) suspension 400 mg/5 mL Take 30 mL by mouth nightly as needed (constipation if no bowel movement in 3 days) Stop Taking at Discharge 12/18/2022 dulaglutide (TRULICITY) 1.5 mg/0.5 mL pen injector Inject 0.5 mL (1.5 mg total) under the skin once a week on Mondays Stop Taking at Discharge 12/18/2022 cefTRIAXone (ROCEPHIN) syringeIndications:Ot her (complete free text reason below),Osteomyelitis Infuse 20 mL (2,000 mg total) into a venous catheter daily Stop Taking at Discharge 12/04/2022 12/18/2022 doxycycline monohydrate (MONODOX) 100 mg capsuleIndications:Sk in/Soft Tissue Infection Take 1 capsule (100 mg total) by mouth 2 (two) times a day Stop Taking at Discharge 12/03/2022 12/18/2022 furosemide (LASIX) 40 mg tablet Take 1 tablet (40 mg total) by mouth 2 (two) times a day Stop Taking at Discharge 12/05/2022 12/18/2022 documented as of this encounter Active and Recently Administered Medications Times are shown in CDT. Scheduled Medication Order 12/16/2022 12/17/2022 12/18/2022 aspirin chewable tablet 81 mg 81 mg, oral, Daily, First dose on [place] 12/18/22 at 0900 0926 (Given - Provider: Spring Spencer, ALIREZA) atorvastatin (LIPITOR) tablet 20 mg 20 mg, oral, Nightly, First dose on 12/07/22 at 2100 2150 (Given - Provider: Kanika Briones, ALIREZA) 2058 (Given - Provider: Kanika Briones, ALIREZA) 2125 (Given - Provider: Lorraine Cheema, ALIREZA) benztropine (COGENTIN) tablet 1.5 mg 1.5 mg, oral, Nightly, First dose (after last modification) on 12/07/22 at 2100 2150 (Given - Provider: Kanika Briones RN) 2057 (Given - Provider: Kanika Briones RN) 2125 (Given - Provider: Lorraine Cheema, ALIREZA) carvediloL (COREG) tablet 6.25 mg 6.25 mg, oral, 2 times daily with meals (bkfst, dinner), First dose (after last modification) on Thu12/11/22 at 0815 0952 (Given - Provider: Cricket Nicole RN)1746 (Given - Provider: Cricket Nicole RN) 0952 (Given - Provider: Cricket Nicole RN)1722 (Given - Provider: Cricket Nicole RN) 0917 (Given - Provider: Spring Spencer, ALIREZA)1738 (Given - Provider: Spring pSencer, ALIREZA) DAPTOmycin (CUBICIN) 50 mg/mL sodium chloride 0.9% 350 mg 350 mg (rounded from 369.6 mg = 6 mg/kg ? 61.6 kg Adjusted weight), intravenous, at 210 mL/hr, Administer over 2 Minutes, Every 48 hours, First dose on Thu12/16/22 at 1400, Do not administer or mix with dextrose-containing solutions, Indications: Bone/Joint Infection 1549 (Given - Provider: Cricket Nicole RN) 1559 (Given - Provider: Spring Spencer, ALIREZA) famotidine (PEPCID) tablet 10 mg 10 mg, oral, Daily, First dose (after last modification) on 12/07/22 at 0900 0952 (Given - Provider: Cricket Nicole RN) 0952 (Given - Provider: Cricket Nicole RN) 0917 (Given - Provider: Spring Spencer RN) ferric gluconate (FERRLECIT) 125 mg of elemental iron in sodium chloride 0.9% 100 mL IVPB 125 mg of elemental iron, intravenous, at 110 mL/hr, Administer over 60 Minutes, 3 times weekly (Once per day on Thu), First dose on Thu12/08/22 at 0900, Room temperature only 1013 (New Bag - Provider: Cricket Nicole RN) ferrous sulfate delayed release tablet 65 mg of elemental iron 65 mg of elemental iron, oral, Daily with breakfast, First dose on 12/07/22 at 0800, 325 MG OF FERROUS SULFATE = 65 MG OF ELEMENTAL IRON, Indications: Iron Deficiency Anemia 0953 (Given - Provider: Cricket Nicole RN) 0953 (Given - Provider: Cricket Nicole RN) 0917 (Given - Provider: Spring Spencer RN) furosemide (LASIX) tablet 60 mg 60 mg, oral, 2 times daily (for diuretics), First dose (after last modification) on 12/14/22 at 1600 0952 (Given - Provider: Cricket Nicole RN)1549 (Given - Provider: Cricket Nicole RN) 0952 (Given - Provider: Cricket Nicole RN)1722 (Given - Provider: Cricket Nicole RN) 0926 (Given - Provider: Spring Spencer, ALIREZA)1559 (Given - Provider: Spring Spencer RN) heparin 5,000 unit/mL injection 5,000 Units 5,000 Units, subcutaneous, Every 8 hours scheduled, First dose (after last modification) on 12/06/22 at 2200, Indications: Deep Vein Thrombosis Prevention 0525 (Given - Provider: Jose Fuller RN)1549 (Given - Provider: Cricket Nicole RN)2149 (Given - Provider: Kanika Briones RN) 0636 (Given - Provider: Kanika Briones RN)1335 (Given - Provider: Cricket Nicole RN)2058 (Given - Provider: Kanika Briones RN) 06 (Given - Provider: Kanika Briones RN)1610 (Given - Provider: Spring Spencer RN)2128 (Given - Provider: Lorraine Cheema, ALIREZA) insulin glargine (LANTUS, SEMGLEE) 100 unit/mL injection 15 Units 15 Units, subcutaneous, Nightly, First dose on 12/07/22 at 0045, Do not mix with other insulins 2149 (Given - Provider: Kanika Briones RN) 2099 (Given - Provider: Kanika Briones RN) 2125 (Given - Provider: Lorraine Cheema, ALIREZA) insulin lispro (HumaLOG, ADMELOG) 100 unit/mL injection 0-4 Units 0-4 Units, subcutaneous, Nightly, First dose on 12/06/22 at 2100, Blood glucose mg/dL: 199 or less: No insulin 200-249: add 1 unit 250-299: add 2 units 300-349: add 3 units and notify physician for adjustment of insulin orders. 350-399: add 4 units and notify physician for adjustment of insulin orders. Over 400: Notify physician for adjustment of insulin orders. Do NOT hold for NPO Status, Indications: Diabetes Mellitus 2148 (Not Given - Provider: Kanika Briones RN - Reason: Order parameters not met) 2099 (Given - Provider: Kanika Briones RN) 2124 (Given - Provider: Lorraine Cheema, ALIREZA) insulin lispro (HumaLOG, ADMELOG) 100 unit/mL injection 0-5 Units 0-5 Units, subcutaneous, 3 times daily with meals, First dose on 12/07/22 at 0800, Blood glucose mg/dL: 149 or [...] hold for NPO Status, Indications: Diabetes Mellitus 0951 (Not Given - Provider: Cricket Nicole RN - Reason: Order parameters not met)1133 (Not Given - Provider: Cricket Nicole RN - Reason: Order parameters not met)1747 (Given - Provider: Cricket Nicole RN) 0936 (Given - Provider: Cricket Nicole RN)1335 (Given - Provider: Cricket Nicole RN)1723 (Given - Provider: Cricket Nicole RN) 0927 (Not Given - Provider: Spring Spencer RN - Reason: Order parameters not met)1315 (Given - Provider: Spring Spencer RN)1738 (Given - Provider: Spring Spencer RN) insulin lispro (HumaLOG, ADMELOG) 100 unit/mL injection 7 Units 7 Units, subcutaneous, 3 times daily with meals, First dose on Thu12/07/22 at 0800 0951 (Not Given - Provider: Cricket Nicole RN - Reason: Other - Comment: refused breakfasat)1150 (Given - Provider: Cricket Nicole RN)1747 (Given - Provider: Cricket Nicole RN) 0936 (Given - Provider: Crickte Nicole RN)1336 (Given - Provider: Cricket Nicole RN)1724 (Given - Provider: Cricket Nicole RN) 0918 (Given - Provider: Spring Spencer RN)1315 (Given - Provider: Spring Spencer RN)1737 (Given - Provider: Spring Spencer RN) metOLazone (ZAROXOLYN) tablet 2.5 mg (COMPLETED) 2.5 mg, oral, 2 times daily (for diuretics), First dose on 12/14/22 at 1330, For 4 doses 0952 (Given - Provider: Cricket Nicole RN) metroNIDAZOLE (FLAGYL) tablet 500 mg 500 mg, oral, 3 times daily, First dose on 12/08/22 at 1715, Indications: Bone/Joint Infection 0525 (Given - Provider: Jose Fuller RN)1549 (Given - Provider: Cricket Nicole RN)2149 (Given - Provider: Kanika Briones RN) 0600 (Due)1335 (Given - Provider: Cricket Nicole RN)2057 (Given - Provider: Kanika Briones RN) 0639 (Given - Provider: Kanika Briones RN)1601 (Given - Provider: Spring Spencer RN)2125 (Given - Provider: Lorraine Cheema, ALIREZA) pregabalin (LYRICA) capsule 75 mg 75 mg, oral, Nightly, First dose (after last modification) on 12/06/22 at 2100 2150 (Given - Provider: Kanika Briones RN) 2057 (Given - Provider: Kanika Briones RN) 2125 (Given - Provider: Lorraine Cheema, ALIREZA) risperiDONE (RisperDAL) tablet 2 mg 2 mg, oral, Nightly, First dose (after last modification) on 12/07/22 at 2100 2150 (Given - Provider: Kanika Briones RN) 2057 (Given - Provider: Kanika Briones RN) 2125 (Given - Provider: Lorraine Cheema, ALIREZA) PRN Medication Order 12/16/2022 12/17/2022 12/18/2022 albuterol HFA (PROVENTIL HFA,VENTOLIN HFA,PROAIR HFA) 90 mcg/actuation inhaler 2 puff 2 puff, inhalation, Every 4 hours PRN (sexual assault response coordinator), wheezing, shortness of breath, Starting on 12/07/22 at 0029 dextrose (D10W) 10% bolus 250 mL(Linked Group 1) 250 mL, intravenous, at 1,000 mL/hr, Administer over 15 Minutes, Every 15 min PRN, blood glucose less than 70 mg/dL and UNABLE to swallow/take PO glucose/juice., Starting on 12/06/22 at 1904, After treatment for hypoglycemia, recheck BG followed [...] glucose less than 70 mg/dL, Starting on 12/06/22 at 1904, If patient is alert and able to [...] unable to take PO glucose/juice., Starting on 12/06/22 at 1904, After Glucagon is administered, position patient on [...] immediately following reconstitution. ondansetron (ZOFRAN) injection 4 mg 4 mg, intravenous, Administer over 2 Minutes, Every 6 hours PRN, nausea, vomiting, Starting on Thu12/12/22 at 2020 polyethylene glycol (MIRALAX) packet 17 g 17 g, oral, Daily PRN, constipation, Starting on 12/06/22 at 2359, Indications: constipation Linked Groups Order Group 1: dextrose oral liquid liquid 15 gJump to med 15 g, oral, Every 15 min PRN, low blood sugar, blood glucose less than 70 mg/dL, Starting on 12/06/22 at 1904, If patient is alert and able to [...] UNABLE to swallow/take PO glucose/juice., Starting on 12/06/22 at 1904, After treatment for hypoglycemia, recheck BG followed [...] Count Last Ordered Date First Ordered Date vancomycin 750 mg/150 mL in dextrose 5% (premix) 750 mg 1 12/09/2022 vancomycin 1250 mg/250 mL in sodium chloride 0.9% (premix) 1,250 mg 1 12/08/2022 albuterol HFA (PROVENTIL HFA ,VENTOLIN HFA,PROAIR HFA) 90 mcg/actuation inhaler 2 puff 2 12/07/2022 12/06/2022 atorvastatin (LIPITOR) tablet 20 mg 1 12/07 ferrous sulfate tablet 325 mg 1 12/07/2022 polyethylene glycol (MIRALAX) packet 17 g 1 12/07/2022 dextrose (D10W) 10% bolus 250 mL 1 12/07/19 glucagon injection 1 mg 1 12/06/2022 Lab Orders Without Results Count Last Ordered D ate First Ordered Date POCT GLUCOSE DEVICE 45 12/17/2022 12/07/19 23 Diet Count Last Ordered Date First Orde red Date ADULT DISCHARGE DIET 1 12/18/2022 Nursing Count Last Ordered Date First Orde red Date DISCHARGE ACTIVITY 1 12/18/2022 DISCHARGE CALL PROVIDER 7 12/18/2022 TELEMETRY MONITORING 2 12/13/2022 023 INSERT JOY CATHETER 1 12/11/2022 STRAIGHT CATH 1 12/11/2022 MISCELLANEOUS NURSING CARE ORDER (SPECIFY) 1 12/06/2022 Consult Count Last Ordered Date First Orde red Date IP CONSULT TO SOCIAL WORK 1 12/08/2022 IP CONSULT TO CARDIOLOGY 1 12/07/2022 IP CONSULT TO NEPHROLOGY 1 12/07/2022 IP CONSULT TO PODIATRY 1 12/07/2022 Admission Count Last Ordered Date First Orde red Date ADMIT TO INPATIENT 1 12/06/2022 Discharge Count Last Ordered Date First Orde red Date DISCHARGE PATIENT 1 12/15/2022 CORE MEASURES Count Last Ordered Date First Ord ered Date REASON FOR NO VTE PROPHYLAXIS AT ADMISSION 1 12/06/2022 documented in this encounter Additional Health Concerns Infection Onset Date Last Indicated Resolved Time MRSA Comment:Toe 11/08/22, 12/12/22 11/08/2022 12/12/2022 06/10/2023 3:05 AM ESTIMATOR JEWELRY COVID: Suspected 12/08/2022 12/08/2022 12/08/2022 8:17 PM CDT documented as of this encounter Care Teams Director Data Relationship Specialty Start Date End Date Cherelle Corcoran MD PCP - General Family Medicine 08/30/19 Mark Queen MD Consulting Physician Infectious Diseases 01/10/20 Anam Costa LCSW Incinerator Attendant 08/08/22 02/18/23 Jesus, Melania Joel, RN [address] [place] [address] [address] [place] [address] Board Certified Family Physician 08/22/22 12/07/22 Rudolph Welch MD [address] [facility] [address] [place] [address] Consulting Physician Infectious Diseases 12/05/22 Markie Ryan MD [address] [facility] [address] [place] [address] Consulting Physician Nephrology 12/05/22 documented as of this encounter
--- OUTSIDE RECORDS SUMMARY | 2024-07-04 04:09 | XMS_ITS | Encounter Summary ---
Author Organization [facility] Healthcare Address [address] [place] [address] Care Team Providers Care Security Professionals Name Role Phone Cherelle Corcoran MD Primary Care Pro vider Mark Queen MD Unavailable + [phone] Anam Costa [facility] Unavailable Unavailabl e Rudolph Welch MD Unavailable [phone] Markie Ryan MD Unavailable [phone] Reason for Visit * Auth/Cert (Routine) Specialty Diagnoses / Procedures Referred By Contac t Referred To Contact Diagnoses GI bleed ESOPHAGITIS / GASTRITIS / UTI Procedures NA Referral ID Status Reason Start Date Expiration Date Visits Re quested Visits Authorized [id number] 1 1 Encounter Details Date Type Department Care Team (Late st Contact Info) Description 12/20/2022 5:31 AM CDT - 12/30/2022 4:20 PM CDT Hospital Encounter [facility] [address] [place] [address] [place] [id number] [facility] [address] [place] [address] [place] [address] [place] [address] [place] [id number] [facility] [address] [place], [place] [id number] [place] M[place] [address] [facility] [address] [place] [address] [place] [address] [place] [address] Discharge Disposition: Discharge to an IP Rehab facility Social History Tobacco Use Types Packs/Day Years [...] week 12/23/2022 How often do you attend [facility] or confucianist services? 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 Gender Identity Female 02/08/2020 6:39 PM CDT Sexual Orientation Not on file documented as of this encounter Last Filed Vital Signs Vital Sign Reading Time Taken Comments Blood Pressure 156/62 12/30/2022 7:52 AM CDT Pulse 68 12/30/2022 7:52 AM CDT Temperature 36.5 ??C (97.7 ??F) 12/30/2022 7:52 AM CD T Respiratory Rate 18 12/30/2022 7:52 AM CDT Oxygen Saturation 99% 12/30/2022 7:52 AM CDT Inhaled Oxygen Concentration - - Weight 67.2 kg (148 lb 2.1 oz) 12/25/2022 7:53 A M CDT Height 157.5 cm (5' 2 ) 12/25/2022 7:53 AM CDT Body Mass Index 27.09 12/25/2022 7:53 AM CDT documented in this encounter Discharge Summaries * Darren Morgan DO - 12/30/2022 10:16 AM CDT Images from the original note were not included. Inpatient Discharge Summary Patient Name - Sixto Chakraborty Patient Age - 72 yrs Patient - [id number] [facility] - [id number] Document Creation Date: 12/30/2022 Admitting Provider, MD: Edmond Lara MD Discharge Provider, MD: Darren Morgan DO Primary Care Physician at Discharge: Cherelle Corcoran MD [phone] Admission Date: 12/20/2022 Discharge Date/time: 12/30/2022 Admission Location: [facility] LOS - LOS: 10 days DETAILS OF HOSPITAL STAY Hospital Problems/Diagnoses Principal Problem: GI bleed Active Problems: Schizoaffective disorder, bipolar type ([facility]) ([facility]) Type 2 diabetes mellitus with diabetic neuropathy, with long-term current use of insulin ([facility]) ([facility]) Hypertension associated with diabetes ([facility]) Hyperlipidemia associated with type 2 diabetes mellitus ([facility]) 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 2 diabetes mellitus ([facility]) ([facility]) Late onset Alzheimer's dementia without behavioral disturbance ([facility]) Anemia Weakness Osteomyelitis of great toe of right foot ([facility]) ([facility]) CLEMENTE (acute kidney injury) ([facility]) ([facility]) Bandemia Reason for Hospitalization: This is a 72-year-old black female was admitted secondary to fatigue and weakness. In the emergency department patient was found to have what appeared to be a GI bleed. GIwas consulted and patient was admitted Patient's hemoglobin dropped a small amount on 12/21. Transfusion was not needed Patient has existing osteomyelitis of the great toe. She is on daptomycin and Flagyl until seven Patient's kidney function is acutely worsened this hospitalization compared to previous. Is possible as the secondary to medications At baseline patient has stage IIIB chronic kidney disease. We are holding diuresis Renal function improved and is back to baseline. Continue to monitor. Patient debilitated and weak worked with pt. Agreeable to rehab. Stable for DC. Discharge Details Physical Exam at Discharge: Discharge Condition: stable Pulse: 68 Resp: 18 BP: 156/62 Temp: 36.5 ??C (97.7 ??F) Weight: 67.2 kg (148 lb 2.1 oz) Pertinent Exam Findings at Discharge: no new physical exam findings at time of discharge Discharge Disposition: Discharge to SNF Code Status at Discharge: Full Code Allergies: Patient has no known allergies. Discharge Medications: Your medication list START taking these medications Instructions Last Dose Given Next Dose Due hydrocortisone 25 mg suppository Commonly known as: ANUSOL-HC 25 mg, rectal, [address] 40 mg EC tablet Commonly known as: PROTONIX 40 mg, oral, 2 times daily senna-docusate 8.6-50 mg Commonly known as: PERICOLACE 1 tablet, oral, 2 times daily PRN CHANGE how you take these medications Instructions Last Dose Given Next Dose Due amLODIPine 10 mg tablet Commonly known as: NORVASC What changed: Another medication with the same name was removed. Continue taking this medication, and follow the directions you see here. 10 mg, oral, Nightly insulin lispro 100 unit/mL pen for injection Commonly known as: HumaLOG ADMELOG What changed: Another medication with the same name was removed. Continue taking this medication, and follow the directions you see here. 0-12 Units, subcutaneous, 3 times daily before meals, per sliding scale --> BG 0-140 = 0 units BG 141-174 = 2 units BG 175-199 = 4 units BG 200-249 = 6 units BG 250-299 = 8 units BG 300-349 = 10 units BG 350-400 = 12 units BG >400 = call MD CONTINUE taking these medications Instructions Last Dose Given Next Dose Due acetaminophen 325 mg tablet Commonly known as: TYLENOL 650 mg, oral, Every 6 hours PRN albuterol HFA 90 mcg/actuation inhaler Commonly known as: ProAir HFA 2 puffs, inhalation, Every 4 hours PRN atorvastatin 20 mg tablet Commonly known as: LIPITOR 20 mg, oral, Nightly benztropine 1 mg tablet Commonly known as: COGENTIN 1.5 mg, oral, Nightly conner.stocking,thigh,reg,med misc Wear as much as possible epoetin isaiah-epbx (10,000 unit/mL) solution Commonly known as: RETACRIT 10,000 Units, subcutaneous, Weekly ferrous sulfate 325 mg (65 mg of elemental iron) tablet 325 mg, oral, 2 times daily FreeStyle Madhav 2 [place] [facility] [place] [place] Doctor's comments: May or may not need Generic drug: flash glucose scanning reader Use to continually monitor glucose FreeStyle Madhav 2 Sensor kit Doctor's comments: Type 2 diabetic, on 2 insulin Generic drug: flash glucose sensor Use to continually monitor glucose, change every 14 days insulin glargine 100 unit/mL (3 mL) pen for injection Commonly known as: LANTUS, BASAGLAR, SEMGLEE 15 Units, subcutaneous, Nightly, To start once blood sugars are consistently above 200 lidocaine 4 % adhesive patch,medicated Commonly known [...] hydr-fiber 30 mL, oral, 2 times daily STOP taking these medications ascorbic acid 500 mg tablet,chewable Commonly known as: VITAMIN C aspirin 81 mg chewable tablet bisacodyL 10 mg suppository Commonly known as: DULCOLAX bisacodyL 10 mg/30 mL enema Commonly known as: FLEET-BISACODYL carvediloL 6.25 mg tablet Commonly known as: COREG DAPTOmycin 50 mg/mL injection Commonly known as: CUBICIN famotidine 10 mg tablet Commonly known as: PEPCID furosemide 20 mg tablet Commonly known as: LASIX metroNIDAZOLE 500 mg tablet Commonly known as: FLAGYL risperiDONE 2 mg tablet Commonly known as: RisperDAL Saccharomyces boulardii 250 mg capsule Commonly known as: FLORASTOR vancomycin 1,000 mg injection Commonly known as: VANCOCIN Where to Get Your Medications Information about where to get these medications is not yet available Ask your nurse or doctor about these medications hydrocortisone [address] 40 mg EC tablet senna-docusate 8.6-50 mg Time Spent in Discharge Process: I have spent 35 minutes on discharge planning activities. Time spent was on Coordination of care, Follow up , Counselling with patient/family, discharge exam, and parent/patient education Test Results Pending at Discharge (If Blank, None Found): Operative Procedures Performed (If Blank, None Found): Outpatient Follow-Up: Future Appointments Date Time Provider Department Center 02/18/2023 12:15 PM Nikhil Jones MD [facility] 03/11/2023 1:45 PM Markie Ryan MD [id number] Specialty Please schedule an appointment with the following provider(s): No follow-up provider specified. ANCILLARY INFORMATION Other Procedures & Diagnostic Tests: No results found. Recent Labs: Recent Labs Lab Units 12/30/22 0746 12/29/22 1222 12/28/22 0531 WBC K/cumm 8.7 7.5 7.8 HEMOGLOBIN g/dL 8.8* 10.2* 8.0* HEMATOCRIT % 27.9* 32.6* 26.0* PLATELETS K/cumm 328 382 290 Recent Labs Lab Units 12/30/22 0746 12/29/22 1222 12/28/22 0531 WBC K/cumm 8.7 7.5 7.8 HEMOGLOBIN g/dL 8.8* 10.2* 8.0* HEMATOCRIT % 27.9* 32.6* 26.0* PLATELETS K/cumm 328 382 290 Recent Labs Lab Units 12/30/22 0754 12/30/22 0746 12/29/22 1747 12/29/22 1222 12/28/22 0748 12/28/22 0531 SODIUM mmol/L -- 145 -- 142 -- 148* POTASSIUM PLASMA mmol/L -- 4.6 -- 5.3* -- 4.9 CHLORIDE mmol/L -- 114* -- 110 -- 115* CO2 mmol/L -- 19* -- 20* -- 23 BUN SERUM mg/dL -- 38* -- 36* -- 42* CREATININE mg/dL -- 2.21* -- 2.43* -- 3.00* [id number] mL/min/1.73 m2 -- 23 -- 21 -- 16 GLUCOSE mg/dL -- 148 -- 228* -- 104 POC GLUCOSE MONITOR mg/dL 151 -- < > -- < > -- CALCIUM mg/dL -- 9.0 -- 9.6 -- 8.7 ALBUMIN g/dL -- 2.7* -- 3.3* -- 2.8* < > = values in this interval not displayed. Recent Labs Lab Units 12/30/22 0754 12/30/22 0746 12/30/22 0445 12/29/22 1747 12/29/22 1222 12/28/22 0748 12/28/22 0531 SODIUM mmol/L -- 145 -- -- 142 -- 148* POTASSIUM PLASMA mmol/L -- 4.6 -- -- 5.3* -- 4.9 CHLORIDE mmol/L -- 114* -- -- 110 -- 115* CO2 mmol/L -- 19* -- -- 20* -- 23 ANIONGAP mmol/L -- 12 -- -- 12 -- 10 GLUCOSE mg/dL -- 148 -- -- 228* -- 104 POC GLUCOSE MONITOR mg/dL 151 -- 187 < > -- < > -- BUN SERUM mg/dL -- 38* -- -- 36* -- 42* CREATININE mg/dL -- 2.21* -- -- 2.43* -- 3.00* CALCIUM mg/dL -- 9.0 -- -- 9.6 -- 8.7 ALBUMIN g/dL -- 2.7* -- -- 3.3* -- 2.8* ALK PHOS Units/L -- 150* -- -- 168* -- 137* ALT Units/L -- 26 -- -- 28 -- 19 AST Units/L -- 28 -- -- 30 -- 23 BILIRUBIN TOTAL mg/dL -- <0.2 -- -- <0.2 -- <0.2 < > = values in this interval not displayed. Recent Labs Lab Units 12/30/22 0746 12/29/22 1222 12/28/22 0531 ALK PHOS Units/L 150* 168* 137* BILIRUBIN TOTAL mg/dL <0.2 <0.2 <0.2 TOTAL PROTEIN g/dL 7.7 9.1* 7.6 ALT Units/L 26 28 19 AST Units/L 28 30 23 Lab Results Component Value Date GLUCOSE 151 12/30/2022 GLUCOSE 148 12/30/2022 GLUCOSE 187 12/30/2022 Implant: Implants No active implants to display in this view. General Precautions (If Blank, None Found): Isolation Status: Contact Nutritional Status and in-house recommendations: Dietary Orders (From admission, onward) Start Ordered 12/20/22 2100 Bedtime snack At bedtime Comments: If bedtime BG is less than 100mg/dl, give patient a 15 gram carbohydrate snack. 12/20/22 1118 12/20/22 0548 Adult Diet Restricted; Consistent Carb 1600 chanelle Diet effective now Question Answer Comment (CH) Diet type Restricted Diabetic: Consistent Carb 1600 chanelle 12/20/22 0554 Anticoagulation Indication: INR: No results found for requested labs within last 30 days. Warfarin Administrations (last 168 hours) None Oxygen Status: O2 Therapy for the past 12 hrs: O2 Therapy 12/30/22 0752 None (Room air) 12/30/22 0026 None (Room air) Wound Care Instructions Wound 11/30/22 ulceration to tip of right great (Active) Site Assessment Dry;Intact;Black 12/29/22 2100 Yenny-wound Assessment Black 12/29/22 2100 Margins Undefined edges 12/29/22 2100 Closure Open to air 12/29/22 2100 Drainage Amount None 12/29/22 2100 Drainage Odor No odor 12/29/22 2100 Dressing Status Clean/Dry/Intact 12/30/22 0800 Dressing Betadine 12/29/22 2100 Wound 12/15/22 Gluteal Cleft (vertical) MASD w./ skin loss (Active) Wound Status Evolving 12/29/22 2100 Site Assessment Fragile 12/29/22 2100 Yenny-wound Assessment Fragile 12/29/22 2100 Margins Undefined edges 12/29/22 2100 Closure Open to air 12/29/22 2100 Drainage Amount None 12/29/22 2100 Dressing Status Open to Air 12/30/22 0800 Dressing Protective barrier 12/29/22 2100 Interventions Topical barrier cream 12/29/22 2100 Wound Image 12/20/22 0530 Wound 12/20/22 MASD (Moisture associated skin damage) Right;Left;Medial Thigh (Active) Wound Status Evolving 12/29/22 2100 Site Assessment Dry 12/29/22 2100 Yenny-wound Assessment Dry;Intact 12/29/22 2100 Margins Defined edges 12/29/22 2100 Closure Open to air 12/29/22 2100 Drainage Amount None 12/29/22 2100 Dressing Status Clean/Dry/Intact 12/30/22 0800 Dressing Protective barrier 07/10/23 2100 Interventions Topical barrier cream 12/29/222099 Wound Image 12/20/22 0530 Other Instructions Call provider for: Temperature -Temperature greater than 101 degrees F Call provider for: difficulty breathing or chest pain Call provider for: extreme fatigue Call provider for: hives Call provider for: persistent dizziness or light-headedness Call provider for: persistent nausea or vomiting Call provider for: redness, tenderness, or signs of infection (pain, swelling, redness, odor or green/yellow discharge around incision site) Call provider for: severe uncontrolled pain Call provider for: headache, visual disturbances, weakness and speech changes Active LDAs (If Blank, None Found): Urethral Catheter Double-lumen;Non-latex (Active) Placement Date/Time: 12/20/222199 Inserted by: Salvador Smith RN Catheter Type: Double-lumen;Non-latex Tube Size (Fr.): 16 Fr Catheter Balloon Size: 10 mL Urine Returned: Yes Patient Emergency Contact: Primary Emergency Contact: Areli Gayle, Immunization Status at Discharge Immunization History Administered Date(s) Administered Influenza Nasal, Unspecified 04/17/2017 Influenza, Quadrivalent, High Dose, Preservative Free, Intrr 04/02/2020, 03/07/2021, 04/01/2022, 08/07/2022 Influenza, Trivalent, Adjuvanted, Intramuscular 04/06/2019 Influenza, Trivalent, Intramuscular 04/17/2017 Pfizer SARS-CoV-2 Monovalent Vaccination (12+ Yrs) PURPLE 09/22/2020, 10/13/2020, 06/11/2021 Pneumococcal Conjugate PCV 13 03/31/2017 Pneumococcal Polysaccharide PPV23 01/20/2019 Darren Morgan DO documented in this encounter Discharge Instructions * Discharge Instr - Diet* Pamela Mays - 12/26/2022 3:30 PM CDT Continue to follow a consistent carbohydrate diet upon discharge. Avoid concentrated sweets such ascookies, cake, candy and ice cream. Also, avoid sugar-sweetened beverages such as lemonade, sweet tea, regular soda, juice and Gatorade. Eat 45-60 g of carbohydrates at each meal. Eat 3 meals per dayand try to eat at consistent times. If interested, ask your doctor for referral to outpatient nutrition counseling. Call [facility] Dietitian's office at [phone] for questions about yourdiet. Additional resources available from the [place] [employer] can be found at www.diabetes.org/nutrition documented in this encounter Medications at Time [...] the skin once a week 3 04/07/20 23 ferrous sulfate 325 mg (65 mg of elemental iron) tabletIndication s:Iron Deficiency Anemia Take 1 tablet (325 mg total) by mouth 2 (two) times a day 60 tablet 1 3 04/20/20 flash glucose scanning reader (ZaldivaStyle Madhav 2 [place]) miscIndications: Type 2 diabetes mellitus with diabetic neuropathy, with long-term current use of insulin ([facility]) Use to continually monitor glucose 1 each 2 03/24/20 flash glucose sensor (FreeStyle Madhav 2 Sensor) kitIndications:T ype 2 diabetes mellitus with diabetic neuropathy, with long-term current use of insulin ([facility]) Use to continually monitor glucose, [...] by mouth daily as needed for constipation 10/17/20 23 pregabalin (LYRICA) 75 mg capsule Take 1 capsule (75 mg total) by mouth nightly 30 capsule 3 04/07/20 risperiDONE (RisperDAL) 2 mg tablet Take 1 tablet (2 mg total) by mouth 2 04/07/20 senna-docusate (PERICOLACE) 8.6-50 mgIndications:co nstipation Take 1 tablet by mouth 2 (two) times a day as needed for constipation 60 tablet 3 04/07/20 documented as of this encounter Ordered Prescriptions Prescription Sig Dispense Quantity Refills Last Filled Start Date End Date pantoprazole DR (PROTONIX) 40 mg EC tabletIndications :GI Bleed Take 1 tablet (40 mg total) by mouth 2 (two) times a day 60 tablet 3 04/07/20 senna-docusate (PERICOLACE) 8.6-50 mgIndications:con stipation Take 1 tablet by mouth 2 (two) times a day as needed for constipation 60 tablet 3 04/07/20 hydrocortisone (ANUSOL-HC) 25 mg suppository Insert 1 suppository (25 mg total) into the rectum 2 (two) times a day for 15 doses 12 suppository 3 01/08/20 documented in this encounter Discharge Disposition Disposition Code Departure Means Destination Comment s Discharge to an Rehab facility Ambulance [facility] documented in this encounter Progress Notes * Dinora Swanson RN - 12/30/2022 2:47 PM CDT Report given to Barb at [facility] [phone] * Tim Castelan MSW - 12/30/2022 8:54 AM CDT 12/30/22 0854 Communications Important Message from Medicare notice given to patient? Yes BRICK WASHER reviewed pt's IMM today with her daughter. BRICK WASHER will mail copy of IMM to address on file. * Jimbo Strauss MD - 12/29/2022 4:00 PM CDT Nephrology Daily Progress [facility]# [id number] #: [id number] Phone#: [phone] #: [phone] Subjective Chief complaint of Interval History: oral intake is not the best, still pretty weak, seems to answer questions correctly Objective Vitals: 24hr Min/Max: Temp Min: 36.5 ??C (97.7 ??F) Max: 36.9 ??C (98.4 ??F) Pulse Min: 62 Max: 69 BP Min: 143/64 Max: 167/71 Resp Min: 14 Max: 18 SpO2 Min: 94 % Max: 99 % Intake/Output Summary (Last 24 hours) at 12/30/2022 0817 Last data filed at 12/30/2022 0440 Gross per 24 hour Intake 600 ml Output 1750 ml Net -1150 ml Wt Readings from Last 3 Encounters: 12/25/22 67.2 kg (148 lb 2.1 oz) 12/06/22 78.9 kg (173 lb 15.1 oz) 12/05/22 79.3 kg (174 lb 12.8 oz) Temp Av.8 ??C (98.2 ??F) Min: 36.5 ??C (97.7 ??F) Max: 36.9 ??C (98.4 ??F) BP Min: 143/64 Max: 167/71 Pulse Av Min: 62 Max: 69 Resp Av Min: 14 Max: 18 SpO2 Av.8 % Min: 94 % Max: 99 % Most Recent: Vitals: 12/30/22 0752 BP: 156/62 Pulse: 68 Resp: 18 Temp: 36.5 ??C (97.7 ??F) SpO2: 99% I/O last 2 completed shifts: In: 600 [P.O.:600] Out: 3250 [Urine:3250] No intake/output data recorded. Current Facility-Administered Medications Medication Dose Route Frequency Last Rate Last Admin acetaminophen (TYLENOL) tablet 650 mg 650 mg oral Q4H PRN albuterol HFA (PROVENTIL HFA,VENTOLIN HFA,PROAIR HFA) 90 mcg/actuation inhaler 2 puff 2 puff inhalation Q4H PRN (RT) [Held by Provider] atorvastatin (LIPITOR) tablet 20 mg 20 mg oral Nightly benztropine (COGENTIN) tablet 1.5 mg 1.5 mg oral Nightly 1.5 mg at 12/29/222139 Carrier Fluids for Secondary Infusion - 0.9% Sodium Chloride 30 mL intravenous PRN dextrose oral liquid liquid 15 g 15 g oral Q15 Min PRN Or dextrose (D10W) 10% bolus 250 mL 250 mL intravenous Q15 Min PRN ferrous sulfate delayed release tablet 65 mg of elemental iron 65 mg of elemental iron oral Daily with breakfast 65 mg of elemental iron at 12/29/22 0855 glucagon injection 1 mg 1 mg intramuscular Q30 Min PRN heparin 5,000 unit/mL injection 5,000 Units 5,000 Units subcutaneous Q8H SOL 5,000 Units at 12/30/22 0500 hydrocortisone (ANUSOL-HC) suppository 25 mg 25 mg rectal BID 25 mg at 12/29/222139 insulin glargine (LANTUS, SEMGLEE) 100 unit/mL injection 10 Units 10 Units subcutaneous Nightly 10 Units at 12/29/222139 insulin lispro (HumaLOG, ADMELOG) 100 unit/mL injection 0-5 Units 0-5 Units subcutaneous Q4H SOL 1 Units at 12/30/22 0459 ondansetron ODT (ZOFRAN-ODT) disintegrating tablet 4 mg 4 mg oral Q6H PRN Or ondansetron (ZOFRAN) injection 4 mg 4 mg intravenous Q6H PRN pantoprazole DR (PROTONIX) extended release tablet 40 mg 40 mg oral BID 40 mg at 12/29/222139 phenylephrine 0.25%-mineral oil 14%-petrolatum 74.9% ointment rectal QID PRN pregabalin (LYRICA) capsule 75 mg 75 mg oral Nightly 75 mg at 12/29/222139 prochlorperazine (COMPAZINE) tablet 5 mg 5 mg oral Q6H PRN Or prochlorperazine (COMPAZINE) injection 5 mg 5 mg intravenous Q6H PRN ramelteon (ROZEREM) tablet 8 mg 8 mg oral Nightly PRN senna-docusate (PERICOLACE) 8.6-50 mg per tablet 1 tablet 1 tablet oral BID PRN sodium chloride 0.9% flush 0.5-20 mL 0.5-20 mL intra-catheter Q8H SOL 10 mL at 12/29/22 2210 sodium chloride 0.9% flush 0.5-20 mL 0.5-20 mL intra-catheter PRN Continuous Medications Medication Dose Last Rate LDA: PICC Single Lumen 11/11/22 Non-tunneled Power Left Brachial;Upper arm (Active) Placement Date/Time: 11/11/22 1310 Placed by External Staff?: Other hospital Catheter Time Out Checklist Completed: Yes Hand Hygiene Performed: Yes Site Prep: Chlorhexidine Site Prep Agent has Completely Dried Before Insertion: Yes All 5 Steril... Number of days: 40 Urethral Catheter Double-lumen;Non-latex (Active) Placement Date/Time: 12/20/222199 Inserted by: Salvador Smith RN Catheter Type: Double-lumen;Non-latex Tube Size (Fr.): 16 Fr Catheter Balloon Size: 10 mL Urine Returned: Yes Number of days: 0 Vent settings: Hemodynamic parameters for last 24 hours: Physical Exam: General Appearance: Alert, cooperative, confused not following any commands. Head: Normocephalic, without obvious abnormality, atraumatic Eyes: [...] all four quadrants, non-distended Extremities: Extremities normal, thigh edema. Skin: Skin color, texture, turgor normal, no rashes, lesions or bruising Neurologic: Alert & oriented to person. Moves extremities to painful stimuli. Psychosocial: flat Dialysis Access Exam: Lab/Radiology/Diagnostic Review: Recent Labs Lab Units 12/30/22 0754 12/29/22 1747 12/29/22 1222 12/28/22 0748 12/28/22 0531 12/27/22 0741 12/27/22 0646 SODIUM mmol/L -- -- 142 -- 148* -- 144 POTASSIUM PLASMA mmol/L -- -- 5.3* -- 4.9 -- 4.7 CHLORIDE mmol/L -- -- 110 -- 115* -- 113* CO2 mmol/L -- -- 20* -- 23 -- 22 BUN SERUM mg/dL -- -- 36* -- 42* -- 44* CREATININE mg/dL -- -- 2.43* -- 3.00* -- 3.30* [id number] mL/min/1.73 m2 -- -- 21 -- 16 -- 14 GLUCOSE mg/dL -- -- 228* -- 104 -- 118 POC GLUCOSE MONITOR mg/dL 151 < > -- < > -- < > -- CALCIUM mg/dL -- -- 9.6 -- 8.7 -- 8.5 ALBUMIN g/dL -- -- 3.3* -- 2.8* -- 2.9* < > = values in this interval not displayed. Additional Labs: Recent Labs Lab Units 12/30/22 0746 12/29/22 1222 12/28/22 0531 WBC K/cumm 8.7 7.5 7.8 HEMOGLOBIN g/dL 8.8* 10.2* 8.0* HEMATOCRIT % 27.9* 32.6* 26.0* PLATELETS K/cumm 328 382 290 Assessment/Plan 1. chronic kidney disease: Stage IIIB, due to diabetes and hypertension. Creatinine has gone up dueto diuresis. We will hold for now. As off 12/22/2022 creatinine is worse. Will give iv fluids, hold diuretics As off 12/24/2022 creatinine is a bit better. As off 12/25/2022 no labs drawn today. Fluid rate has been reduced As off 12/26/2022 has been off IV fluids. Has developed thigh edema 2. Hypertension: Blood pressures we will control As off 12/25/2022 has needed mirodrine. Will be weaned off slowly As off 12/26/2022 midoridine stopped. 3. Edema: This is much better compared to the last admission. Due to chronic kidney disease and pulmonary hypertension. As of 12/21/2022 no lower extremity edema. As off 12/26/2022 has thigh edema. 4. Anemia: Possible GI bleed. Possibly chronic kidney disease related. Possible iron deficiency. 5. Tremors: Possibly early Parkinson's. 6. Metabolic acidosis: possible related to renal failure. Add sodium bicarbonate If discharged over the weekend start lasix 40 mg BID, keep on sodium bicarbonate. Hopefully, BP will be stable off midoridine DICTATION DISCLAIMER: This note is transcribed using the [employer] direct voice recognition system without human menagerie superintendent. In an effort to expedite patient care, this note has not been adjusted for typographical, grammatical, and syntax by a trained medical records custodian. Portions of this note have been copied from the medical record, but edited appropriately to accurately reflect the patient's current clinical state. Jimbo Strauss Office/exchange: [phone] Pager: [phone] * Sara Thornton, OT - 12/29/2022 3:57 PM CDT Occupational Therapy NOTE / SESSION TYPE: DAILY PROGRESS / TREATMENT Patient's Name: Sixto Chakraborty Age / Sex: 72 y.o. / female [id number] 1950 Date of service: 12/29/22 TIME IN: 1206 TIME OUT: 1216 Patient Active Problem List Diagnosis Schizoaffective disorder, bipolar type ([facility]/HCC) (HCC) Diabetic neuropathy (HCC) Type 2 [...] of great toe of right foot (CMS/HCC) ([facility]) Abnormal urinalysis Cellulitis of great toe of right foot CLEMENTE (acute kidney injury) ([facility]) ([facility]) Acute on chronic diastolic congestive heart failure ([facility]) ([facility]) Bibasilar consolidations Movement disorder Shortness of breath GI bleed Bandemia Past Medical History: Diagnosis Date Arthritis CHF (congestive heart failure) ([facility]) ([facility]) Dementia (HCC) Depression Diabetic neuropathy (HCC) Hyperlipidemia Hypertension Movement disorder Osteomyelitis (HCC) Renal disorder Schizophrenia ([facility]) Type 2 diabetes mellitus ([facility]) Past Surgical History: Procedure Laterality Date SECTION Right right foot TOE AMPUTATION Right 01/06/2020 4th toe amp/ foot debridement/ Dr. Anat Pelayo Precautions (including weight-bearing): Fall risk and Contact isolation: mrsa Subjective: I'm doing pretty good Therapy Pain: Pre-therapy pain level: 0 /10 [...] session: Yes Completed patient handoff and notified AREA MECHANIC / RN, name: Indira, of patient's location and functional status upon completion of session VITAL SIGNS: Pt with no complaints of dizziness, lightheadedness or SOB. Cognitive / Perceptual: single step command follow 100%, pleasant, cooperative Mobility / Transfers: Bed Mobility: Supine>sit min A Transfer(s): sit>stand cg, bed>chair stand pivot cg Living Skills / Other Activities: Min A to doff/don socks Declines gown Caregiver Present: No Education & Training Provided: Role of OT, OT plan of care, and ADL training Assessment: Activity tolerance / response to OT session: GOOD PARTICIPATION Progress towards goals: Please refer to care plan from this date for progress towards individual goals Plan: Therapy Plan: Rehab Potential (Prognosis): good OT Recommendations This Date: OT RECOMMENDATIONS: OT Recommendation: Retirement Facility Flow sheet updated and OT Consultation in Regards to Change in Discharge Recommendations: YES /NO: N/a Additional recommendation comments: Recommend SNF due to: Risk of injury at home, Unable to safely care for self in the home, Skilled therapy needed to address care for self in the home, Skilled therapy needed to address functional deficits, Skilled therapy needed for patient to return to prior level of independence Frequency of therapy:OT Frequency during current admission: 3-5x/wk If this is the last note, consider this the discharge summary Sara Thornton OT 12/29/22 * Darren Morgan, DO - 12/29/2022 1:59 PM CDT [facility] Hospitalist Service Progress Note Patient Name: Sixto Chakraborty Patient : 1950 Age/Sex: 72 y.o. female Room/Bed: [facility]/[id number] Admission Date/Time: 12/20/2022 5:31 AM Date: 12/29/2022 Time: 1:59 PM Chief complaint: POA hand shakes History of Present Illness and Hospital Course: This is a 72-year-old black female was admitted secondary to fatigue and weakness. In the emergencydepartment patient was found to have what appeared to be a GI bleed. GI was consulted and patient was admitted Patient's hemoglobin dropped a small amount on 12/21. Transfusion was not needed Patient has existing osteomyelitis of the great toe. She is on daptomycin and Flagyl until Patient's kidney function is acutely worsened this hospitalization compared to previous. Is possible as the secondary to medications At baseline patient has stage IIIB chronic kidney disease. We are holding diuresis 12/23/2022 The patient is seen and examined at bedside. Patient awake and sitting in chair. Denies any symptoms or complaints. Creatinine is getting better today. SUBJECTIVE Interval History: Patient seen examined. Patient resting comfortably. No labs for today. No complaints. Referral sent. I spoke with nursing staff at bedside. We discussed the case in detail. All of their concerns were addressed. Review of Systems: Constitutional: denies weight loss, weight gain Head: denies headache , dizziness, lightheadedness, loc Nose/Throat: denies dysphagia, soreness, rhinorrhea Cardiovascular: denies chest pain, palpitations, syncope Resp: denies, shortness of breath, cough,hemoptysis Peripheral: denies weakness , numbness, tingling Gi: denies nausea , vomiting, diarrhea Gu: denies dysuria, hematuria Musculoskeletal: weakness, joint pain, positive hand tremor Neuro: denies problems with gait, dizziness, seizures. Endocrine: denies diabetes, thyroid. Allergies: No Known Allergies Current Medication List: Scheduled Meds:[Held by Provider] atorvastatin, 20 mg, oral, Nightly benztropine, 1.5 mg, oral, Nightly ferrous sulfate, 65 mg of elemental iron, oral, Daily with breakfast heparin, 5,000 Units, subcutaneous, Q8H SOL hydrocortisone, 25 mg, rectal, BID insulin glargine, 10 Units, subcutaneous, Nightly insulin lispro, 0-5 Units, subcutaneous, Q4H SOL pantoprazole DR, 40 mg, oral, BID pregabalin, 75 mg, oral, Nightly sodium chloride 0.9%, 0.5-20 mL, intra-catheter, Q8H SOL Continuous Infusions: PRN Meds: acetaminophen albuterol HFA sodium chloride 0.9% dextrose OR dextrose glucagon ondansetron ODT OR ondansetron phenylephrine 0.25%-mineral oil 14%-petrolatum 74.9% prochlorperazine OR prochlorperazine ramelteon senna-docusate sodium chloride 0.9% OBJECTIVE Vitals: Vitals: 12/28/22 1949 12/28/22 1950 12/29/22 0326 12/29/22 0737 BP: (!) 181/62 (!) 171/67 162/69 164/86 BP Location: Right arm Right arm Right arm Patient Position: Lying Lying Lying Pulse: 66 68 66 Resp: Temp: 36.9 ??C (98.4 ??F) 36.7 ??C (98 ??F) 36.4 ??C (97.5 ??F) TempSrc: Oral Axillary Oral SpO2: 99% 97% 100% Weight: Height: Physical Exam: Physical Exam HENT: Head: Normocephalic. Mouth/Throat: Mouth: Mucous membranes are moist. Eyes: Pupils: Pupils are equal, round, and reactive to light. Cardiovascular: Rate and Rhythm: Normal rate. Pulmonary: Effort: Pulmonary effort is normal. Abdominal: Palpations: Abdomen is soft. Musculoskeletal: General: Normal range of motion. Comments: Patient is very weak to upper and lower extremity Skin: General: Skin is warm. Capillary Refill: Capillary refill takes less than 2 seconds. Neurological: General: No focal deficit present. Mental Status: She is alert. Psychiatric: Mood and Affect: Mood normal. Pertinent Diagnostics: I have reviewed the pertinent laboratory, radiographic, and other diagnosticstudies. Recent Results (from the past 24 hour(s)) POCT glucose Collection Time: 12/28/22 5:29 PM Result Value Ref Range Glucose, POC 185 70 - 199 mg/dL POCT glucose Collection Time: 12/28/22 8:24 PM Result Value Ref Range Glucose, POC 201 (H) 70 - 199 mg/dL POCT glucose Collection Time: 12/28/22 11:32 PM Result Value Ref Range Glucose, POC 204 (H) 70 - 199 mg/dL POCT glucose Collection Time: 12/29/22 3:45 AM Result Value Ref Range Glucose, POC 213 (H) 70 - 199 mg/dL POCT glucose Collection Time: 12/29/22 7:38 AM Result Value Ref Range Glucose, POC 153 70 - 199 mg/dL POCT glucose Collection Time: 12/29/22 12:04 PM Result Value Ref Range Glucose, POC 237 (H) 70 - 199 mg/dL ASSESSMENT AND PLAN: All conditions are present on admission unless otherwise noted. Acute on chronic kidney disease: -nephrology following -it is assumed that this is due to diuresis -diuresis has been held at this time and patient is receiving intermittent fluids -continues to improve. Will continue to monitor. Plan for skilled placement - creatinine overall improving Foot/toe osteomyelitis: POA -infectious Disease on the case -patient just completed daptomycin and Flagyl on 12/23/2022 -appreciate ID recommendations moving forward -wound care is on the case Urinary tract infection: POA patient's urinalysis on 12/20/2022 noted leukocyte esterase 3+ WBC greater than 50 yeast 4+ -patient currently finishing 2 antibiotics, daptomycin Flagyl per Infectious Disease -will monitor patient's kidney functions as well while giving antibiotic Hypertension: POA -continue with amlodipine, carvedilol -monitor per floor protocol Diabetes mellitus type 2: POA -sliding scale insulin -Accu check a.c. HS -basal insulin, still hyperglycemic will increase Lantus from 5-8 units nightly -consistent carb diet Hand tremor: POA -continue Cogentin -continue to monitor symptoms. Normocytic anemia: POA hemoglobin 8.0 hematocrit 24.9 MCV 93.3 due to iron-deficiency -no interventions needed at this time -will continue monitor -repeat lab in a.m. Generalized weakness: POA -PTOT GERD: POA -pantoprazole DVT prophylaxis -heparin Discharge Disposition: Pending detention facility placement. Referral sent Voice recognition software ([employer]) was used to complete this document. Despite proofreading, supervisor hydrochloric area variances and typographical errors may occur. 12/29/2022 1:59 PM * Sarahy Liao PTA - 12/29/2022 11:05 AM CDT Physical Therapy Patient politely refuses therapy at this time. Was sleeping but woke to calling of name. Patient requests to have session after lunch. Sarahy Liao PTA 12/29/22 11:05 AM * Anil Wong MD - 12/28/2022 4:36 PM CDT Nephrology Daily Progress [facility]# [id number] SS#: [id number] Phone#: [phone] #: 1950 Subjective Chief complaint of Interval History: oral intake is not the best, still pretty weak, seems to answer questions correctly Objective Vitals: 24hr Min/Max: Temp Min: 36.6 ??C (97.9 ??F) Max: 37.2 ??C (99 ??F) Pulse Min: 64 Max: 68 BP Min: 137/59 Max: 153/72 Resp Min: 18 Max: 18 SpO2 Min: 95 % Max: 98 % Intake/Output Summary (Last 24 hours) at 12/28/2022 1636 Last data filed at 12/28/2022 1406 Gross per 24 hour Intake 380 ml Output 1875 ml Net -1495 ml Wt Readings from Last 3 Encounters: 12/25/22 67.2 kg (148 lb 2.1 oz) 12/06/22 78.9 kg (173 lb 15.1 oz) 12/05/22 79.3 kg (174 lb 12.8 oz) Temp Av ??C (98.6 ??F) Min: 36.6 ??C (97.9 ??F) Max: 37.2 ??C (99 ??F) BP Min: 137/59 Max: 153/72 Pulse Av.8 Min: 64 Max: 68 Resp Av Min: 18 Max: 18 SpO2 Av % Min: 95 % Max: 98 % Most Recent: Vitals: 12/28/22 1512 BP: 148/60 Pulse: 68 Resp: 18 Temp: 37 ??C (98.6 ??F) SpO2: 98% I/O last 2 completed shifts: In: - Out: 3075 [Urine:3075] I/O this shift: In: 380 [P.O.:380] Out: - Current Facility-Administered Medications Medication Dose Route Frequency Last Rate Last Admin acetaminophen (TYLENOL) tablet 650 mg 650 mg oral Q4H PRN albuterol HFA (PROVENTIL HFA,VENTOLIN HFA,PROAIR HFA) 90 mcg/actuation inhaler 2 puff 2 puff inhalation Q4H PRN (RT) [Held by Provider] atorvastatin (LIPITOR) tablet 20 mg 20 mg oral Nightly benztropine (COGENTIN) tablet 1.5 mg 1.5 mg oral Nightly 1.5 mg at 12/27/222112 Carrier Fluids for Secondary Infusion - 0.9% Sodium Chloride 30 mL intravenous PRN dextrose oral liquid liquid 15 g 15 g oral Q15 Min PRN Or dextrose (D10W) 10% bolus 250 mL 250 mL intravenous Q15 Min PRN ferrous sulfate delayed release tablet 65 mg of elemental iron 65 mg of elemental iron oral Daily with breakfast 65 mg of elemental iron at 12/28/22 08 glucagon injection 1 mg 1 mg intramuscular Q30 Min PRN heparin 5,000 unit/mL injection 5,000 Units 5,000 Units subcutaneous Q8H SOL 5,000 Units at 12/28/22 1421 hydrocortisone (ANUSOL-HC) suppository 25 mg 25 mg rectal BID 25 mg at 12/28/22850 insulin glargine (LANTUS, SEMGLEE) 100 unit/mL injection 10 Units 10 Units subcutaneous Nightly 10 Units at 12/27/222112 insulin lispro (HumaLOG, ADMELOG) 100 unit/mL injection 0-5 Units 0-5 Units subcutaneous Q4H SOL 1 Units at 12/28/22 1215 ondansetron ODT (ZOFRAN-ODT) disintegrating tablet 4 mg 4 mg oral Q6H PRN Or ondansetron (ZOFRAN) injection 4 mg 4 mg intravenous Q6H PRN pantoprazole DR (PROTONIX) extended release tablet 40 mg 40 mg oral BID 40 mg at 12/28/22850 phenylephrine 0.25%-mineral oil 14%-petrolatum 74.9% ointment rectal QID PRN pregabalin (LYRICA) capsule 75 mg 75 mg oral Nightly 75 mg at 12/27/222112 prochlorperazine (COMPAZINE) tablet 5 mg 5 mg oral Q6H PRN Or prochlorperazine (COMPAZINE) injection 5 mg 5 mg intravenous Q6H PRN ramelteon (ROZEREM) tablet 8 mg 8 mg oral Nightly PRN senna-docusate (PERICOLACE) 8.6-50 mg per tablet 1 tablet 1 tablet oral BID PRN sodium bicarbonate tablet 650 mg 650 mg oral BID 650 mg at 12/28/2251 sodium chloride 0.9% flush 0.5-20 mL 0.5-20 mL intra-catheter Q8H SOL 5 mL at 12/28/22 1448 sodium chloride 0.9% flush 0.5-20 mL 0.5-20 mL intra-catheter PRN Continuous Medications Medication Dose Last Rate Physical Exam: General Appearance: Alert, cooperative, pleasant Lungs: Clear to auscultation bilaterally, respirations unlabored Cardiovascular: Regular rate and rhythm, S1 and S2 normal, no rub or gallop Abdomen: Soft, non-tender, non-distended Extremities: 1+ pedal edema. No cyanosis. Lab/Radiology/Diagnostic Review: Recent Labs Lab Units 12/28/22 1212 12/28/22 0748 12/28/22 0531 12/27/22 0741 12/27/22 0646 12/26/22 0729 12/26/22 0617 12/22/22 1222 12/22/22 0748 SODIUM mmol/L -- -- 148* -- 144 -- 146* < > 136 POTASSIUM PLASMA mmol/L -- -- 4.9 -- 4.7 -- 4.7 < > 4.9 CHLORIDE mmol/L -- -- 115* -- 113* -- 113* < > 100 CO2 mmol/L -- -- 23 -- 22 -- 21* < > 18* BUN SERUM mg/dL -- -- 42* -- 44* -- 54* < > 104* CREATININE mg/dL -- -- 3.00* -- 3.30* -- 3.68* < > 6.99* WLC-LNP-VGTUMOG mL/min/1.73 m2 -- -- 16 -- 14 -- 13 < > 6 GLUCOSE mg/dL -- -- 104 -- 118 -- 234* < > 196 POC GLUCOSE MONITOR mg/dL 173 < > -- < > -- < > -- < > -- CALCIUM mg/dL -- -- 8.7 -- 8.5 -- 8.0* < > 8.0* ALBUMIN g/dL -- -- 2.8* -- 2.9* -- 2.8* < > 2.7* PHOSPHORUS PLASMA mg/dL -- -- -- -- -- -- -- -- 8.4* < > = values in this interval not displayed. Additional Labs: Recent Labs Lab Units 12/28/22 0531 12/27/22 0646 12/26/22 0617 12/23/22 0725 12/23/22 0010 12/22/22 0805 12/22/22 0748 WBC K/cumm 7.8 9.0 8.6 < > 9.5 9.5 9.7 9.4 HEMOGLOBIN g/dL 8.0* 8.2* 8.1* < > 8.8* 8.3* 8.4* 8.7* HEMATOCRIT % 26.0* 26.1* 25.3* < > 27.3* 26.4* 26.5* 27.2* PLATELETS K/cumm 290 307 305 < > 294 288 283 306 NEUTROS PCT % -- -- -- -- 66.6 65.5 65.4 65.1 LYMPHS PCT % -- -- -- -- 21.3 22.1 22.2 22.4 MONOS PCT % -- -- -- -- 9.0 9.8 10.1 9.9 EOS PCT % -- -- -- -- 2.4 1.9 1.7 2.0 < > = values in this interval not displayed. Assessment/Plan 1. chronic kidney disease: creat is lower at 3.00. BUN is lower at 42. 2. Hypertension 3. Edema 4. Anemia 5. Tremors 6. Metabolic acidosis: resolved * Darren Morgan, DO - 12/28/2022 1:51 PM CDT [facility] Hospitalist Service Progress Note Patient Name: Sixto Chakraborty Patient : 1950 Age/Sex: 72 y.o. female Room/Bed: [facility]/[id number] Admission Date/Time: 12/20/2022 5:31 AM Date: 12/28/2022 Time: 1:51 PM Chief complaint: POA hand shakes History of Present Illness and Hospital Course: This is a 72-year-old black female was admitted secondary to fatigue and weakness. In the emergencydepartment patient was found to have what appeared to be a GI bleed. GI was consulted and patient was admitted Patient's hemoglobin dropped a small amount on 12/21. Transfusion was not needed Patient has existing osteomyelitis of the great toe. She is on daptomycin and Flagyl until seven four Patient's kidney function is acutely worsened this hospitalization compared to previous. Is possible as the secondary to medications At baseline patient has stage IIIB chronic kidney disease. We are holding diuresis 12/23/2022 The patient is seen and examined at bedside. Patient awake and sitting in chair. Denies any symptoms or complaints. Creatinine is getting better today. SUBJECTIVE Interval History: Patient seen examined. Patient resting comfortably. Creatinine continues to improve. Continues to have no complaints. Awaiting patient for placement I spoke with nursing staff at bedside. We discussed the case in detail. All of their concerns were addressed. Review of Systems: Constitutional: denies weight loss, weight gain Head: denies headache , dizziness, lightheadedness, loc Nose/Throat: denies dysphagia, soreness, rhinorrhea Cardiovascular: denies chest pain, palpitations, syncope Resp: denies, shortness of breath, cough,hemoptysis Peripheral: denies weakness , numbness, tingling Gi: denies nausea , vomiting, diarrhea Gu: denies dysuria, hematuria Musculoskeletal: weakness, joint pain, positive hand tremor Neuro: denies problems with gait, dizziness, seizures. Endocrine: denies diabetes, thyroid. Allergies: No Known Allergies Current Medication List: Scheduled Meds:[Held by Provider] atorvastatin, 20 mg, oral, Nightly benztropine, 1.5 mg, oral, Nightly ferrous sulfate, 65 mg of elemental iron, oral, Daily with breakfast heparin, 5,000 Units, subcutaneous, Q8H SOL hydrocortisone, 25 mg, rectal, BID insulin glargine, 10 Units, subcutaneous, Nightly insulin lispro, 0-5 Units, subcutaneous, Q4H SOL pantoprazole DR, 40 mg, oral, BID pregabalin, 75 mg, oral, Nightly sodium bicarbonate, 650 mg, oral, BID sodium chloride 0.9%, 0.5-20 mL, intra-catheter, Q8H SOL Continuous Infusions: PRN Meds: acetaminophen albuterol HFA sodium chloride 0.9% dextrose OR dextrose glucagon ondansetron ODT OR ondansetron phenylephrine 0.25%-mineral oil 14%-petrolatum 74.9% prochlorperazine OR prochlorperazine ramelteon senna-docusate sodium chloride 0.9% OBJECTIVE Vitals: Vitals: 12/27/22 1450 12/27/22 2211 12/27/22 2338 12/28/22 0726 BP: 150/51 137/59 147/63 153/72 BP Location: Right arm Right arm Right arm Right arm Patient Position: HOB 30 degrees HOB 30 degrees HOB 30 degrees HOB 30 degrees Pulse: 72 64 66 65 Resp: 18 18 18 18 Temp: 36.8 ??C (98.2 ??F) 37.1 ??C (98.8 ??F) 37.2 ??C (99 ??F) 36.6 ??C (97.9 ??F) TempSrc: Oral Axillary Axillary Axillary SpO2: 98% 97% 95% 98% Weight: Height: Physical Exam: Physical Exam HENT: Head: Normocephalic. Mouth/Throat: Mouth: Mucous membranes are moist. Eyes: Pupils: Pupils are equal, round, and reactive to light. Cardiovascular: Rate and Rhythm: Normal rate. Pulmonary: Effort: Pulmonary effort is normal. Abdominal: Palpations: Abdomen is soft. Musculoskeletal: General: Normal range of motion. Comments: Patient is very weak to upper and lower extremity Skin: General: Skin is warm. Capillary Refill: Capillary refill takes less than 2 seconds. Neurological: General: No focal deficit present. Mental Status: She is alert. Psychiatric: Mood and Affect: Mood normal. Pertinent Diagnostics: I have reviewed the pertinent laboratory, radiographic, and other diagnosticstudies. Recent Results (from the past 24 hour(s)) POCT glucose Collection Time: 12/27/22 4:30 PM Result Value Ref Range Glucose, POC 248 (H) 70 - 199 mg/dL POCT glucose Collection Time: 12/27/22 8:43 PM Result Value Ref Range Glucose, POC 131 70 - 199 mg/dL POCT glucose Collection Time: 12/27/22 11:59 PM Result Value Ref Range Glucose, POC 223 (H) 70 - 199 mg/dL Comprehensive metabolic panel Collection Time: 12/28/22 5:31 AM Result Value Ref Range Sodium 148 (H) 135 - 145 mmol/L Potassium, pl 4.9 3.3 - 4.9 mmol/L Chloride 115 (H) 97 - 110 mmol/L CO2 23 22 - 32 mmol/L Anion gap 10 2 - 15 mmol/L BUN 42 (H) 6 - 25 mg/dL Creatinine 3.00 (H) 0.60 - 1.10 mg/dL Glucose 104 70 - 199 mg/dL Calcium 8.7 8.5 - 10.3 mg/dL Bilirubin, total <0.2 0.1 - 1.2 mg/dL Protein, pl 7.6 6.5 - 8.5 g/dL Albumin 2.8 (L) 3.5 - 5.0 g/dL Alk phos 137 (H) 40 - 130 Units/L ALT 19 7 - 45 Units/L AST 23 10 - 45 Units/L CBC without differential Collection Time: 12/28/22 5:31 AM Result Value Ref Range WBC 7.8 3.8 - 9.9 K/cumm Hgb 8.0 (L) 11.9 - 15.5 g/dL Hct 26.0 (L) 35.6 - 45.5 % Plt 290 150 - 400 K/cumm MPV 11.0 9.1 - 12.3 fL RBC 2.71 (L) 3.90 - 5.20 M/cumm MCV 95.9 81.3 - 96.4 fL MCH 29.5 27.1 - 33.3 pg MCHC 30.8 (L) 32.3 - 35.7 g/dL RDW CV 16.2 (H) 11.1 - 14.9 % RDW SD 57.0 (H) 35.7 - 48.1 fL NRBC abs 0.00 0.00 - 0.01 K/cumm eGFR Collection Time: 12/28/22 5:31 AM Result Value Ref Range eGFR 16 mL/min/1.73 m2 POCT glucose Collection Time: 12/28/22 7:48 AM Result Value Ref Range Glucose, POC 124 70 - 199 mg/dL POCT glucose Collection Time: 12/28/22 12:12 PM Result Value Ref Range Glucose, POC 173 70 - 199 mg/dL ASSESSMENT AND PLAN: All conditions are present on admission unless otherwise noted. Acute on chronic kidney disease: Worsening according to records baseline 2.3-2.7 -nephrology following -it is assumed that this is due to diuresis -diuresis has been held at this time and patient is receiving intermittent fluids -continues to improve. Will continue to monitor. Plan for skilled placement - creatinine 3 today Foot/toe osteomyelitis: POA -infectious Disease on the case -patient just completed daptomycin and Flagyl on 12/23/2022 -appreciate ID recommendations moving forward -wound care is on the case Urinary tract infection: POA patient's urinalysis on 12/20/2022 noted leukocyte esterase 3+ WBC greater than 50 yeast 4+ -patient currently finishing 2 antibiotics, daptomycin Flagyl per Infectious Disease -will monitor patient's kidney functions as well while giving antibiotic Hypertension: POA -continue with amlodipine, carvedilol -monitor per floor protocol Diabetes mellitus type 2: POA -sliding scale insulin -Accu check a.c. HS -basal insulin, still hyperglycemic will increase Lantus from 5-8 units nightly -consistent carb diet Hand tremor: POA -continue Cogentin -continue to monitor symptoms. Normocytic anemia: POA hemoglobin 8.0 hematocrit 24.9 MCV 93.3 due to iron-deficiency -no interventions needed at this time -will continue monitor -repeat lab in a.m. Generalized weakness: POA -PTOT GERD: POA -pantoprazole DVT prophylaxis -heparin Discharge Disposition: Pending detention facility placement Voice recognition software ([employer]) was used to complete this document. Despite proofreading, supervisor hydrochloric area variances and typographical errors may occur. 12/28/2022 1:51 PM * Anil Wong MD - 12/27/2022 2:26 PM CDT Nephrology Daily Progress [facility]# [id number] SS#: [id number] Phone#: [phone] #: 1950 Subjective Chief complaint of Interval History: oral intake is not the best, still pretty weak, seems to answer questions correctly Objective Vitals: 24hr Min/Max: Temp Min: 36.7 ??C (98.1 ??F) Max: 37.1 ??C (98.8 ??F) Pulse Min: 72 Max: 78 BP Min: 146/71 Max: 148/70 Resp Min: 12 Max: 16 SpO2 Min: 95 % Max: 97 % Intake/Output Summary (Last 24 hours) at 12/27/2022 1426 Last data filed at 12/27/2022 1200 Gross per 24 hour Intake -- Output 1950 ml Net -1950 ml Wt Readings from Last 3 Encounters: 12/25/22 67.2 kg (148 lb 2.1 oz) 12/06/22 78.9 kg (173 lb 15.1 oz) 12/05/22 79.3 kg (174 lb 12.8 oz) Temp Av ??C (98.6 ??F) Min: 36.7 ??C (98.1 ??F) Max: 37.1 ??C (98.8 ??F) BP Min: 146/71 Max: 148/70 Pulse Av.7 Min: 72 Max: 78 Resp Av.3 Min: 12 Max: 16 SpO2 Av % Min: 95 % Max: 97 % Most Recent: Vitals: 12/27/22 0759 BP: 148/70 Pulse: 72 Resp: 16 Temp: 36.7 ??C (98.1 ??F) SpO2: 95% I/O last 2 completed shifts: In: - Out: 2200 [Urine:2200] I/O this shift: In: - Out: 1200 [Urine:1200] Current Facility-Administered Medications Medication Dose Route Frequency Last Rate Last Admin acetaminophen (TYLENOL) tablet 650 mg 650 mg oral Q4H PRN albuterol HFA (PROVENTIL HFA,VENTOLIN HFA,PROAIR HFA) 90 mcg/actuation inhaler 2 puff 2 puff inhalation Q4H PRN (RT) [Held by Provider] atorvastatin (LIPITOR) tablet 20 mg 20 mg oral Nightly benztropine (COGENTIN) tablet 1.5 mg 1.5 mg oral Nightly 1.5 mg at 12/26/222058 Carrier Fluids for Secondary Infusion - 0.9% Sodium Chloride 30 mL intravenous PRN dextrose oral liquid liquid 15 g 15 g oral Q15 Min PRN Or dextrose (D10W) 10% bolus 250 mL 250 mL intravenous Q15 Min PRN ferrous sulfate delayed release tablet 65 mg of elemental iron 65 mg of elemental iron oral Daily with breakfast 65 mg of elemental iron at 12/27/22 0847 glucagon injection 1 mg 1 mg intramuscular Q30 Min PRN heparin 5,000 unit/mL injection 5,000 Units 5,000 Units subcutaneous Q8H SOL 5,000 Units at 12/27/22 0548 hydrocortisone (ANUSOL-HC) suppository 25 mg 25 mg rectal BID 25 mg at 12/27/22 0847 insulin glargine (LANTUS, SEMGLEE) 100 unit/mL injection 10 Units 10 Units subcutaneous Nightly 10 Units at 12/26/22 210 insulin lispro (HumaLOG, ADMELOG) 100 unit/mL injection 0-5 Units 0-5 Units subcutaneous Q4H SOL 2 Units at 12/27/22 1227 ondansetron ODT (ZOFRAN-ODT) disintegrating tablet 4 mg 4 mg oral Q6H PRN Or ondansetron (ZOFRAN) injection 4 mg 4 mg intravenous Q6H PRN pantoprazole DR (PROTONIX) extended release tablet 40 mg 40 mg oral BID 40 mg at 12/27/22 0847 phenylephrine 0.25%-mineral oil 14%-petrolatum 74.9% ointment rectal QID PRN pregabalin (LYRICA) capsule 75 mg 75 mg oral Nightly 75 mg at 12/26/222058 prochlorperazine (COMPAZINE) tablet 5 mg 5 mg oral Q6H PRN Or prochlorperazine (COMPAZINE) injection 5 mg 5 mg intravenous Q6H PRN ramelteon (ROZEREM) tablet 8 mg 8 mg oral Nightly PRN senna-docusate (PERICOLACE) 8.6-50 mg per tablet 1 tablet 1 tablet oral BID PRN sodium bicarbonate tablet 1,300 mg 1,300 mg oral TID 1,300 mg at 12/27/22 0847 sodium chloride 0.9% flush 0.5-20 mL 0.5-20 mL intra-catheter Q8H SOL 10 mL at 12/27/22 0549 sodium chloride 0.9% flush 0.5-20 mL 0.5-20 mL intra-catheter PRN Continuous Medications Medication Dose Last Rate Physical Exam: General Appearance: Alert, cooperative, pleasant Lungs: Clear to auscultation bilaterally, respirations unlabored Cardiovascular: Regular rate and rhythm, S1 and S2 normal, no rub or gallop Abdomen: Soft, non-tender, non-distended Extremities: Extremities normal, thigh edema. Skin: Skin color, texture, turgor normal, no rashes, lesions or bruising Psychosocial: Flat affect Lab/Radiology/Diagnostic Review: Recent Labs Lab Units 12/27/22 1213 12/27/22 0741 12/27/22 0646 12/26/22 0729 12/26/22 0617 12/24/22 1119 12/24/22 1046 12/23/22 0729 12/23/22 0725 12/22/22 1222 12/22/22 0748 SODIUM mmol/L -- -- 144 -- 146* -- 142 -- 139 -- 136 POTASSIUM PLASMA mmol/L -- -- 4.7 -- 4.7 -- 5.0* -- 4.9 -- 4.9 CHLORIDE mmol/L -- -- 113* -- 113* -- 108 -- 102 -- 100 CO2 mmol/L -- -- 22 -- 21* -- 18* -- 16* -- 18* BUN SERUM mg/dL -- -- 44* -- 54* -- 92* -- 108* -- 104* CREATININE mg/dL -- -- 3.30* -- 3.68* -- 5.81* -- 7.34* -- 6.99* [id number] mL/min/1.73 m2 -- -- 14 -- 13 -- 7 -- 5 -- 6 GLUCOSE mg/dL -- -- 118 -- 234* -- 244* -- 129 -- 196 POC GLUCOSE MONITOR mg/dL 225* < > -- < > -- < > -- < > -- < > -- CALCIUM mg/dL -- -- 8.5 -- 8.0* -- 8.3* -- 7.8* -- 8.0* ALBUMIN g/dL -- -- 2.9* -- 2.8* -- -- -- 2.8* -- 2.7* PHOSPHORUS PLASMA mg/dL -- -- -- -- -- -- -- -- -- -- 8.4* < > = values in this interval not displayed. Additional Labs: Recent Labs Lab Units 12/27/22 0646 12/26/2261612/23/2272412/23/22 0010 12/22/22 0805 12/22/22 0748 WBC K/cumm 9.0 8.6 8.7 9.5 9.5 9.7 9.4 HEMOGLOBIN g/dL 8.2* 8.1* 8.0* 8.8* 8.3* 8.4* 8.7* HEMATOCRIT % 26.1* 25.3* 24.9* 27.3* 26.4* 26.5* 27.2* PLATELETS K/cumm 307 305 284 294 288 283 306 NEUTROS PCT % -- -- -- 66.6 65.5 65.4 65.1 LYMPHS PCT % -- -- -- 21.3 22.1 22.2 22.4 MONOS PCT % -- -- -- 9.0 9.8 10.1 9.9 EOS PCT % -- -- -- 2.4 1.9 1.7 2.0 Assessment/Plan 1. chronic kidney disease: creat is lower at 3.30 2. Hypertension: 3. Edema: 4. Anemia 5. Tremors 6. Metabolic acidosis: resolved * Darren Morgan, - 12/27/2022 1:52 PM CDT [facility] Hospitalist Service Progress Note Patient Name: Sixto Chakraborty Patient : 1950 Age/Sex: 72 y.o. female Room/Bed: [facility]/[id number] Admission Date/Time: 12/20/2022 5:31 AM Date: 12/27/2022 Time: 1:52 PM Chief complaint: POA hand shakes History of Present Illness and Hospital Course: This is a 72-year-old black female was admitted secondary to fatigue and weakness. In the emergencydepartment patient was found to have what appeared to be a GI bleed. GI was consulted and patient was admitted Patient's hemoglobin dropped a small amount on 12/21. Transfusion was not needed Patient has existing osteomyelitis of the great toe. She is on daptomycin and Flagyl until Patient's kidney function is acutely worsened this hospitalization compared to previous. Is possible as the secondary to medications At baseline patient has stage IIIB chronic kidney disease. We are holding diuresis 12/23/2022 The patient is seen and examined at bedside. Patient awake and sitting in chair. Denies any symptoms or complaints. Creatinine is getting better today. SUBJECTIVE Interval History: Patient seen examined. Patient resting comfortably. Creatinine continues to improve. Continues to have no complaints. I spoke with nursing staff at bedside. We discussed the case in detail. All of their concerns were addressed. Review of Systems: Constitutional: denies weight loss, weight gain Head: denies headache , dizziness, lightheadedness, loc Nose/Throat: denies dysphagia, soreness, rhinorrhea Cardiovascular: denies chest pain, palpitations, syncope Resp: denies, shortness of breath, cough,hemoptysis Peripheral: denies weakness , numbness, tingling Gi: denies nausea , vomiting, diarrhea Gu: denies dysuria, hematuria Musculoskeletal: weakness, joint pain, positive hand tremor Neuro: denies problems with gait, dizziness, seizures. Endocrine: denies diabetes, thyroid. Allergies: No Known Allergies Current Medication List: Scheduled Meds:[Held by Provider] atorvastatin, 20 mg, oral, Nightly benztropine, 1.5 mg, oral, Nightly ferrous sulfate, 65 mg of elemental iron, oral, Daily with breakfast heparin, 5,000 Units, subcutaneous, Q8H SOL hydrocortisone, 25 mg, rectal, BID insulin glargine, 10 Units, subcutaneous, Nightly insulin lispro, 0-5 Units, subcutaneous, Q4H SOL pantoprazole DR, 40 mg, oral, BID pregabalin, 75 mg, oral, Nightly sodium bicarbonate, 1,300 mg, oral, TID sodium chloride 0.9%, 0.5-20 mL, intra-catheter, Q8H SOL Continuous Infusions: PRN Meds: acetaminophen albuterol HFA sodium chloride 0.9% dextrose OR dextrose glucagon ondansetron ODT OR ondansetron phenylephrine 0.25%-mineral oil 14%-petrolatum 74.9% prochlorperazine OR prochlorperazine ramelteon senna-docusate sodium chloride 0.9% OBJECTIVE Vitals: Vitals: 12/26/22 1240 12/26/22200612/26/22 2354 12/27/22 0759 BP: 146/71 146/71 148/66 148/70 BP Location: Right arm Right arm Right arm Right arm Patient Position: Lying Lying HOB 30 degrees Pulse: 68 74 78 72 Resp: 16 12 12 16 Temp: 37 ??C (98.6 ??F) 37.1 ??C (98.8 ??F) 37.1 ??C (98.8 ??F) 36.7 ??C (98.1 ??F) TempSrc: Oral Oral Oral Axillary SpO2: 96% 96% 97% 95% Weight: Height: Physical Exam: Physical Exam HENT: Head: Normocephalic. Mouth/Throat: Mouth: Mucous membranes are moist. Eyes: Pupils: Pupils are equal, round, and reactive to light. Cardiovascular: Rate and Rhythm: Normal rate. Pulmonary: Effort: Pulmonary effort is normal. Abdominal: Palpations: Abdomen is soft. Musculoskeletal: General: Normal range of motion. Comments: Patient is very weak to upper and lower extremity Skin: General: Skin is warm. Capillary Refill: Capillary refill takes less than 2 seconds. Neurological: General: No focal deficit present. Mental Status: She is alert. Psychiatric: Mood and Affect: Mood normal. Pertinent Diagnostics: I have reviewed the pertinent laboratory, radiographic, and other diagnosticstudies. Recent Results (from the past 24 hour(s)) POCT glucose Collection Time: 12/26/22 4:00 PM Result Value Ref Range Glucose, POC 232 (H) 70 - 199 mg/dL POCT glucose Collection Time: 12/26/22 8:04 PM Result Value Ref Range Glucose, POC 198 70 - 199 mg/dL POCT glucose Collection Time: 12/27/22 12:26 AM Result Value Ref Range Glucose, POC 126 70 - 199 mg/dL POCT glucose Collection Time: 12/27/22 5:00 AM Result Value Ref Range Glucose, POC 118 70 - 199 mg/dL Comprehensive metabolic panel Collection Time: 12/27/22 6:46 AM Result Value Ref Range Sodium 144 135 - 145 mmol/L Potassium, pl 4.7 3.3 - 4.9 mmol/L Chloride 113 (H) 97 - 110 mmol/L CO2 22 22 - 32 mmol/L Anion gap 9 2 - 15 mmol/L BUN 44 (H) 6 - 25 mg/dL Creatinine 3.30 (H) 0.60 - 1.10 mg/dL Glucose 118 70 - 199 mg/dL Calcium 8.5 8.5 - 10.3 mg/dL Bilirubin, total <0.2 0.1 - 1.2 mg/dL Protein, pl 7.7 6.5 - 8.5 g/dL Albumin 2.9 (L) 3.5 - 5.0 g/dL Alk phos 155 (H) 40 - 130 Units/L ALT 19 7 - 45 Units/L AST 25 10 - 45 Units/L CBC without differential Collection Time: 12/27/22 6:46 AM Result Value Ref Range WBC 9.0 3.8 - 9.9 K/cumm Hgb 8.2 (L) 11.9 - 15.5 g/dL Hct 26.1 (L) 35.6 - 45.5 % Plt 307 150 - 400 K/cumm MPV 10.6 9.1 - 12.3 fL RBC 2.74 (L) 3.90 - 5.20 M/cumm MCV 95.3 81.3 - 96.4 fL MCH 29.9 27.1 - 33.3 pg MCHC 31.4 (L) 32.3 - 35.7 g/dL RDW CV 16.2 (H) 11.1 - 14.9 % RDW SD 56.9 (H) 35.7 - 48.1 fL NRBC abs 0.00 0.00 - 0.01 K/cumm eGFR Collection Time: 12/27/22 6:46 AM Result Value Ref Range eGFR 14 mL/min/1.73 m2 POCT glucose Collection Time: 12/27/22 7:41 AM Result Value Ref Range Glucose, POC 135 70 - 199 mg/dL POCT glucose Collection Time: 12/27/22 12:13 PM Result Value Ref Range Glucose, POC 225 (H) 70 - 199 mg/dL ASSESSMENT AND PLAN: All conditions are present on admission unless otherwise noted. Acute on chronic kidney disease: Worsening according to records baseline 2.3-2.7 currently creatinine 6.99 BUN 104 GFR 6 stage 5 -nephrology is aware and is currently trying to address this -it is assumed that this is due to diuresis -diuresis has been held at this time and patient is receiving intermittent fluids -continues to improve. Will continue to monitor. Plan for skilled placement Foot/toe osteomyelitis: POA -infectious Disease on the case -patient just completed daptomycin and Flagyl on 12/23/2022 -appreciate ID recommendations moving forward -wound care is on the case Urinary tract infection: POA patient's urinalysis on 12/20/2022 noted leukocyte esterase 3+ WBC greater than 50 yeast 4+ -patient currently finishing 2 antibiotics, daptomycin Flagyl per Infectious Disease -will monitor patient's kidney functions as well while giving antibiotic Hypertension: POA -continue with amlodipine, carvedilol -monitor per floor protocol Diabetes mellitus type 2: POA -sliding scale insulin -Accu check a.c. HS -basal insulin, still hyperglycemic will increase Lantus from 5-8 units nightly -consistent carb diet Hand tremor: POA -continue Cogentin -continue to monitor symptoms. Normocytic anemia: POA hemoglobin 8.0 hematocrit 24.9 MCV 93.3 due to iron-deficiency -no interventions needed at this time -will continue monitor -repeat lab in a.m. Generalized weakness: POA -PTOT GERD: POA -pantoprazole DVT prophylaxis -heparin Discharge Disposition: Pending detention facility placement Voice recognition software ([employer]) was used to complete this document. Despite proofreading, supervisor hydrochloric area variances and typographical errors may occur. 12/27/2022 1:52 PM * Jimbo Strauss MD - 12/26/2022 5:00 PM CDT Nephrology Daily Progress [facility]# [id number] SS#: [id number] Phone#: [phone] #: 1950 Subjective Chief complaint of Interval History: oral intake is not the best, still pretty weak, seems to answer questions correctly Objective Vitals: 24hr Min/Max: Temp Min: 36.9 ??C (98.4 ??F) Max: 37.1 ??C (98.8 ??F) Pulse Min: 64 Max: 78 BP Min: 146/71 Max: 160/64 Resp Min: 12 Max: 18 SpO2 Min: 90 % Max: 97 % Intake/Output Summary (Last 24 hours) at 12/27/2022 0721 Last data filed at 12/27/2022 0655 Gross per 24 hour Intake -- Output 2200 ml Net -2200 ml Wt Readings from Last 3 Encounters: 12/25/22 67.2 kg (148 lb 2.1 oz) 12/06/22 78.9 kg (173 lb 15.1 oz) 12/05/22 79.3 kg (174 lb 12.8 oz) Temp Av.1 ??C (98.7 ??F) Min: 36.9 ??C (98.4 ??F) Max: 37.1 ??C (98.8 ??F) BP Min: 146/71 Max: 160/64 Pulse Av Min: 64 Max: 78 Resp Av.5 Min: 12 Max: 18 SpO2 Av.8 % Min: 90 % Max: 97 % Most Recent: Vitals: 12/26/222353 BP: 148/66 Pulse: 78 Resp: 12 Temp: 37.1 ??C (98.8 ??F) SpO2: 97% I/O last 2 completed shifts: In: - Out: 0 [Urine:2200] No intake/output data recorded. Current Facility-Administered Medications Medication Dose Route Frequency Last Rate Last Admin acetaminophen (TYLENOL) tablet 650 mg 650 mg oral Q4H PRN albuterol HFA (PROVENTIL HFA,VENTOLIN HFA,PROAIR HFA) 90 mcg/actuation inhaler 2 puff 2 puff inhalation Q4H PRN (RT) [Held by Provider] atorvastatin (LIPITOR) tablet 20 mg 20 mg oral Nightly benztropine (COGENTIN) tablet 1.5 mg 1.5 mg oral Nightly 1.5 mg at 12/26/222058 Carrier Fluids for Secondary Infusion - 0.9% Sodium Chloride 30 mL intravenous PRN dextrose oral liquid liquid 15 g 15 g oral Q15 Min PRN Or dextrose (D10W) 10% bolus 250 mL 250 mL intravenous Q15 Min PRN ferrous sulfate delayed release tablet 65 mg of elemental iron 65 mg of elemental iron oral Daily with breakfast 65 mg of elemental iron at 12/26/22 0932 glucagon injection 1 mg 1 mg intramuscular Q30 Min PRN heparin 5,000 unit/mL injection 5,000 Units 5,000 Units subcutaneous Q8H SOL 5,000 Units at 12/27/22 0548 hydrocortisone (ANUSOL-HC) suppository 25 mg 25 mg rectal BID 25 mg at 12/24/222102 insulin glargine (LANTUS, SEMGLEE) 100 unit/mL injection 10 Units 10 Units subcutaneous Nightly 10 Units at 12/26/222102 insulin lispro (HumaLOG, ADMELOG) 100 unit/mL injection 0-5 Units 0-5 Units subcutaneous Q4H SOL 1 Units at 12/26/222102 midodrine (PROAMATINE) tablet 5 mg 5 mg oral TID AC ondansetron ODT (ZOFRAN-ODT) disintegrating tablet 4 mg 4 mg oral Q6H PRN Or ondansetron (ZOFRAN) injection 4 mg 4 mg intravenous Q6H PRN pantoprazole DR (PROTONIX) extended release tablet 40 mg 40 mg oral BID 40 mg at 12/26/222058 phenylephrine 0.25%-mineral oil 14%-petrolatum 74.9% ointment rectal QID PRN pregabalin (LYRICA) capsule 75 mg 75 mg oral Nightly 75 mg at 12/26/222058 prochlorperazine (COMPAZINE) tablet 5 mg 5 mg oral Q6H PRN Or prochlorperazine (COMPAZINE) injection 5 mg 5 mg intravenous Q6H PRN ramelteon (ROZEREM) tablet 8 mg 8 mg oral Nightly PRN senna-docusate (PERICOLACE) 8.6-50 mg per tablet 1 tablet 1 tablet oral BID PRN sodium bicarbonate tablet 1,300 mg 1,300 mg oral TID 1,300 mg at 12/26/222058 sodium chloride 0.9% flush 0.5-20 mL 0.5-20 mL intra-catheter Q8H SOL 10 mL at 12/27/22548 sodium chloride 0.9% flush 0.5-20 mL 0.5-20 mL intra-catheter PRN Continuous Medications Medication Dose Last Rate LDA: PICC Single Lumen 11/11/22 Non-tunneled Power Left Brachial;Upper arm (Active) Placement Date/Time: 11/11/221309 Placed by External Staff?: Other hospital Catheter Time Out Checklist Completed: Yes Hand Hygiene Performed: Yes Site Prep: Chlorhexidine Site Prep Agent has Completely Dried Before Insertion: Yes All 5 Steril... Number of days: 40 Urethral Catheter Double-lumen;Non-latex (Active) Placement Date/Time: 12/20/222199 Inserted by: Salvador Smith RN Catheter Type: Double-lumen;Non-latex Tube Size (Fr.): 16 Fr Catheter Balloon Size: 10 mL Urine Returned: Yes Number of days: 0 Vent settings: Hemodynamic parameters for last 24 hours: Physical Exam: General Appearance: Alert, cooperative, confused not following any commands. Head: Normocephalic, without obvious abnormality, atraumatic Eyes: [...] all four quadrants, non-distended Extremities: Extremities normal, thigh edema. Skin: Skin color, texture, turgor normal, no rashes, lesions or bruising Neurologic: Alert & oriented to person. Moves extremities to painful stimuli. Psychosocial: flat Dialysis Access Exam: Lab/Radiology/Diagnostic Review: Recent Labs Lab Units 12/27/22 0646 12/26/22 0729 12/26/22 0617 12/24/22 1119 12/24/22 1046 12/23/22 0729 12/23/22 0725 12/22/22 1222 12/22/22 0748 SODIUM mmol/L 144 -- 146* -- 142 -- 139 -- 136 POTASSIUM PLASMA mmol/L 4.7 -- 4.7 -- 5.0* -- 4.9 -- 4.9 CHLORIDE mmol/L 113* -- 113* -- 108 -- 102 -- 100 CO2 mmol/L 22 -- 21* -- 18* -- 16* -- 18* BUN SERUM mg/dL 44* -- 54* -- 92* -- 108* -- 104* CREATININE mg/dL 3.30* -- 3.68* -- 5.81* -- 7.34* -- 6.99* [id number] mL/min/1.73 m2 14 -- 13 -- 7 -- 5 -- 6 GLUCOSE mg/dL 118 -- 234* -- 244* -- 129 -- 196 POC GLUCOSE MONITOR -- < > -- < > -- < > -- < > -- CALCIUM mg/dL 8.5 -- 8.0* -- 8.3* -- 7.8* -- 8.0* ALBUMIN g/dL 2.9* -- 2.8* -- -- -- 2.8* -- 2.7* PHOSPHORUS PLASMA mg/dL -- -- -- -- -- -- -- -- 8.4* < > = values in this interval not displayed. Additional Labs: Recent Labs Lab Units 12/27/22 0646 12/26/22 0617 12/23/22 0725 12/23/22 0010 12/22/22 0805 12/22/22 0748 WBC K/cumm 9.0 8.6 8.7 9.5 9.5 9.7 9.4 HEMOGLOBIN g/dL 8.2* 8.1* 8.0* 8.8* 8.3* 8.4* 8.7* HEMATOCRIT % 26.1* 25.3* 24.9* 27.3* 26.4* 26.5* 27.2* PLATELETS K/cumm 307 305 284 294 288 283 306 NEUTROS PCT % -- -- -- 66.6 65.5 65.4 65.1 LYMPHS PCT % -- -- -- 21.3 22.1 22.2 22.4 MONOS PCT % -- -- -- 9.0 9.8 10.1 9.9 EOS PCT % -- -- -- 2.4 1.9 1.7 2.0 Assessment/Plan 1. chronic kidney disease: Stage IIIB, due to diabetes and hypertension. Creatinine has gone up dueto diuresis. We will hold for now. As off 12/22/2022 creatinine is worse. Will give iv fluids, hold diuretics As off 12/24/2022 creatinine is a bit better. As off 12/25/2022 no labs drawn today. Fluid rate has been reduced As off 12/26/2022 has been off IV fluids. Has developed thigh edema 2. Hypertension: Blood pressures we will control As off 12/25/2022 has needed mirodrine. Will be weaned off slowly As off 12/26/2022 midoridine stopped. 3. Edema: This is much better compared to the last admission. Due to chronic kidney disease and pulmonary hypertension. As of 12/21/2022 no lower extremity edema. As off 12/26/2022 has thigh edema. 4. Anemia: Possible GI bleed. Possibly chronic kidney disease related. Possible iron deficiency. 5. Tremors: Possibly early Parkinson's. 6. Metabolic acidosis: possible related to renal failure. Add sodium bicarbonate If discharged over the weekend start lasix 40 mg BID, keep on sodium bicarbonate. Hopefully, BP will be stable off midoridine DICTATION DISCLAIMER: This note is transcribed using the [employer] direct voice recognition system without human menagerie superintendent. In an effort to expedite patient care, this note has not been adjusted for typographical, grammatical, and syntax by a trained medical records custodian. Portions of this note have been copied from the medical record, but edited appropriately to accurately reflect the patient's current clinical state. Jimbo Strauss Office/exchange: [phone] Pager: [phone] * Ayanna Nair OT - 12/26/2022 4:27 PM CDT Occupational Therapy NOTE / SESSION TYPE: DAILY PROGRESS / TREATMENT Patient's Name: Sixto Chakraborty Age / Sex: 72 y.o. / female Room: [place] [id number] : 1950 Date of service: 12/26/22 TIME IN: 1623 TIME OUT: 1646 Patient Active Problem List Diagnosis Schizoaffective disorder, [...] Late onset Alzheimer's dementia without behavioral disturbance ([facility]) Volume overload Anemia Toe necrosis ([facility]/HCC) ([facility]) Physical deconditioning Left leg DVT ([facility]/HCC) ([facility]) Pulmonary nodule Retention of urine, unspecified Unspecified osteoarthritis, unspecified site Unsteadiness on feet Weakness Parkinsonism (HCC) Wheezing Anemia in stage 4 chronic kidney disease (HCC) Osteomyelitis of great toe of right foot ([facility]/HCC) ([facility]) Abnormal urinalysis Cellulitis of great toe of right foot CLEMENTE (acute kidney injury) ([facility]/HCC) ([facility]) Acute on chronic diastolic congestive heart failure ([facility]/HCC) ([facility]) Bibasilar consolidations Movement disorder Shortness of breath GI bleed Bandemia Past Medical History: Diagnosis Date Arthritis CHF (congestive heart failure) ([facility]) ([facility]) Dementia (HCC) Depression Diabetic neuropathy (HCC) Hyperlipidemia Hypertension Movement disorder Osteomyelitis (HCC) Renal disorder Schizophrenia (HCC) Type 2 diabetes mellitus (HCC) Past Surgical History: Procedure Laterality Date SECTION Right right foot TOE AMPUTATION Right 01/06/2020 4th toe amp/ foot debridement/ Dr. Anat Pelayo Precautions (including weight-bearing): Fall risk and Bed / chair alarm Subjective: Patient in good spirits and agreeable to OT. Therapy Pain: Pre-therapy pain level: 0 /10 Pain location: No pain - Location N/A Pain Intervention(s): No pain - Intervention N/A Post-therapy pain level: 0 /10 Pain scale reference: 0-10 SCALE Objective: Appearance: Presentation upon OT arrival: Patient Sitting in bedside chair Presentation upon OT departure: Patient Supine with head of bed elevated Bed / Chair alarm in place and activated upon OT departure: Yes Call light within arms reach of patient at end of session: Yes Completed patient handoff and notified AREA MECHANIC / RN, name: Sixto, of patient's location and functional status upon completion of session VITAL SIGNS: Heart rate at rest: 82 BPM O2 saturations at rest: 99 % Blood pressure at rest: 145/79 Cognitive / Perceptual: AxOx3 Patient is able to follow one step directions without difficulty. Mobility / Transfers: Bed Mobility: NT Transfer(s): Sit to stand using w/w with Min Assist and stand to sit using w/w with Min Assist. Living Skills / Other Activities: Patient participated in sit to stand transfer training 1 set x 5 reps, standing x 5 seconds using w/w with Min Assist. Patient participated in functional mobility training using w/w with Min Assist x 30 feet total without rest break. Patient participated in grooming standing at sink x 5 minutes with Min Assist using w/w. Patient participated in BUE HEP 1 set x 10 reps for chest, back, shoulder and elbow strengthening exercises taking appropriate rest breaks. Good participation and motivation throughout session. Caregiver Present: No Education & Training Provided: Role of OT, OT plan of care, ADL training, Functional transfer training, Balance training, and UE home exercise program Assessment: Activity tolerance / response to OT session: GOOD PARTICIPATION and GOOD MOTIVATION Progress towards goals: Please refer to care plan from this date for progress towards individual goals Plan: Therapy Plan: Rehab Potential (Prognosis): good OT Recommendations This Date: OT RECOMMENDATIONS: OT Recommendation: Retirement Facility Flow sheet updated and OT Consultation in Regards to Change in Discharge Recommendations: YES /NO: Yes Additional recommendation comments: Recommend SNF due to: Risk of injury at home, Unable to safely care for self in the home, Skilled therapy needed to address care for self in the home, Skilled therapy needed to address functional deficits, Skilled therapy needed for patient to return to prior level of independence Frequency of therapy:OT Frequency during current admission: 3-5x/wk If this is the last note, consider this the discharge summary Ayanna Nair OT 12/26/22 * Darren Morgan, - 12/26/2022 3:58 PM CDT [facility] Hospitalist Service Progress Note Patient Name: Sixto Chakraborty Patient : 1950 Age/Sex: 72 y.o. female Room/Bed: [facility]/[id number] Admission Date/Time: 12/20/2022 5:31 AM Date: 12/26/2022 Time: 3:58 PM Chief complaint: POA hand shakes History of Present Illness and Hospital Course: This is a 72-year-old black female was admitted secondary to fatigue and weakness. In the emergencydepartment patient was found to have what appeared to be a GI bleed. GI was consulted and patient was admitted Patient's hemoglobin dropped a small amount on 12/21. Transfusion was not needed Patient has existing osteomyelitis of the great toe. She is on daptomycin and Flagyl until seven four Patient's kidney function is acutely worsened this hospitalization compared to previous. Is possible as the secondary to medications At baseline patient has stage IIIB chronic kidney disease. We are holding diuresis 12/23/2022 The patient is seen and examined at bedside. Patient awake and sitting in chair. Denies any symptoms or complaints. Creatinine is getting better today. SUBJECTIVE Interval History: Patient seen examined. Creatinine continues to improve. Patient has no complaints. Patient is agreeable to detention facility. I spoke with nursing staff at bedside. We discussed the case in detail. All of their concerns were addressed. Review of Systems: Constitutional: denies weight loss, weight gain Head: denies headache , dizziness, lightheadedness, loc Nose/Throat: denies dysphagia, soreness, rhinorrhea Cardiovascular: denies chest pain, palpitations, syncope Resp: denies, shortness of breath, cough,hemoptysis Peripheral: denies weakness , numbness, tingling Gi: denies nausea , vomiting, diarrhea Gu: denies dysuria, hematuria Musculoskeletal: weakness, joint pain, positive hand tremor Neuro: denies problems with gait, dizziness, seizures. Endocrine: denies diabetes, thyroid. Allergies: No Known Allergies Current Medication List: Scheduled Meds:[Held by Provider] atorvastatin, 20 mg, oral, Nightly benztropine, 1.5 mg, oral, Nightly ferrous sulfate, 65 mg of elemental iron, oral, Daily with breakfast heparin, 5,000 Units, subcutaneous, Q8H SOL hydrocortisone, 25 mg, rectal, BID insulin glargine, 10 Units, subcutaneous, Nightly insulin lispro, 0-5 Units, subcutaneous, Q4H SOL midodrine, 5 mg, oral, TID AC pantoprazole DR, 40 mg, oral, BID pregabalin, 75 mg, oral, Nightly sodium bicarbonate, 1,300 mg, oral, TID sodium chloride 0.9%, 0.5-20 mL, intra-catheter, Q8H SOL Continuous Infusions: PRN Meds: acetaminophen albuterol HFA sodium chloride 0.9% dextrose OR dextrose glucagon ondansetron ODT OR ondansetron phenylephrine 0.25%-mineral oil 14%-petrolatum 74.9% prochlorperazine OR prochlorperazine deja senna-docusate sodium chloride 0.9% OBJECTIVE Vitals: Vitals: 12/25/22 1928 12/26/22 0201 12/26/22 0825 12/26/22 1240 BP: 155/67 152/64 160/64 146/71 BP Location: Left arm Right arm Right arm Patient Position: Lying Pulse: 80 74 64 68 Resp: 18 18 16 Temp: 36.6 ??C (97.9 ??F) 36.9 ??C (98.4 ??F) 37 ??C (98.6 ??F) TempSrc: Oral Axillary Oral SpO2: 99% 95% 90% 96% Weight: Height: Physical Exam: Physical Exam HENT: Head: Normocephalic. Mouth/Throat: Mouth: Mucous membranes are moist. Eyes: Pupils: Pupils are equal, round, and reactive to light. Cardiovascular: Rate and Rhythm: Normal rate. Pulmonary: Effort: Pulmonary effort is normal. Abdominal: Palpations: Abdomen is soft. Musculoskeletal: General: Normal range of motion. Comments: Patient is very weak to upper and lower extremity Skin: General: Skin is warm. Capillary Refill: Capillary refill takes less than 2 seconds. Neurological: General: No focal deficit present. Mental Status: She is alert. Psychiatric: Mood and Affect: Mood normal. Pertinent Diagnostics: I have reviewed the pertinent laboratory, radiographic, and other diagnosticstudies. Recent Results (from the past 24 hour(s)) POCT glucose Collection Time: 12/25/22 6:29 PM Result Value Ref Range Glucose, POC 219 (H) 70 - 199 mg/dL POCT glucose Collection Time: 12/25/22 8:33 PM Result Value Ref Range Glucose, POC 209 (H) 70 - 199 mg/dL POCT glucose Collection Time: 12/26/22 12:31 AM Result Value Ref Range Glucose, POC 147 70 - 199 mg/dL POCT glucose Collection Time: 12/26/22 4:19 AM Result Value Ref Range Glucose, POC 202 (H) 70 - 199 mg/dL Comprehensive metabolic panel Collection Time: 12/26/22 6:17 AM Result Value Ref Range Sodium 146 (H) 135 - 145 mmol/L Potassium, pl 4.7 3.3 - 4.9 mmol/L Chloride 113 (H) 97 - 110 mmol/L CO2 21 (L) 22 - 32 mmol/L Anion gap 12 2 - 15 mmol/L BUN 54 (H) 6 - 25 mg/dL Creatinine 3.68 (H) 0.60 - 1.10 mg/dL Glucose 234 (H) 70 - 199 mg/dL Calcium 8.0 (L) 8.5 - 10.3 mg/dL Bilirubin, total <0.2 0.1 - 1.2 mg/dL Protein, pl 7.5 6.5 - 8.5 g/dL Albumin 2.8 (L) 3.5 - 5.0 g/dL Alk phos 194 (H) 40 - 130 Units/L ALT 17 7 - 45 Units/L AST 26 10 - 45 Units/L CBC without differential Collection Time: 12/26/22 6:17 AM Result Value Ref Range WBC 8.6 3.8 - 9.9 K/cumm Hgb 8.1 (L) 11.9 - 15.5 g/dL Hct 25.3 (L) 35.6 - 45.5 % Plt 305 150 - 400 K/cumm MPV 11.2 9.1 - 12.3 fL RBC 2.66 (L) 3.90 - 5.20 M/cumm MCV 95.1 81.3 - 96.4 fL MCH 30.5 27.1 - 33.3 pg MCHC 32.0 (L) 32.3 - 35.7 g/dL RDW CV 16.3 (H) 11.1 - 14.9 % RDW SD 57.4 (H) 35.7 - 48.1 fL NRBC abs 0.00 0.00 - 0.01 K/cumm eGFR Collection Time: 12/26/22 6:17 AM Result Value Ref Range eGFR 13 mL/min/1.73 m2 POCT glucose Collection Time: 12/26/22 7:29 AM Result Value Ref Range Glucose, POC 224 (H) 70 - 199 mg/dL POCT glucose Collection Time: 12/26/22 12:02 PM Result Value Ref Range Glucose, POC 291 (H) 70 - 199 mg/dL ASSESSMENT AND PLAN: All conditions are present on admission unless otherwise noted. Acute on chronic kidney disease: Worsening according to records baseline 2.3-2.7 currently creatinine 6.99 BUN 104 GFR 6 stage 5 -nephrology is aware and is currently trying to address this -it is assumed that this is due to diuresis -diuresis has been held at this time and patient is receiving intermittent fluids -creatinine continues to improve Continue to monitor. Possibly discharge tomorrow or the weekend ifcreatinine continues to improve Foot/toe osteomyelitis: POA -infectious Disease on the case -patient just completed daptomycin and Flagyl on 12/23/2022 -appreciate ID recommendations moving forward -wound care is on the case Urinary tract infection: POA patient's urinalysis on 12/20/2022 noted leukocyte esterase 3+ WBC greater than 50 yeast 4+ -patient currently finishing 2 antibiotics, daptomycin Flagyl per Infectious Disease -will monitor patient's kidney functions as well while giving antibiotic Hypertension: POA -continue with amlodipine, carvedilol -monitor per floor protocol Diabetes mellitus type 2: POA -sliding scale insulin -Accu check a.c. HS -basal insulin, still hyperglycemic will increase Lantus from 5-8 units nightly -consistent carb diet Hand tremor: POA -continue Cogentin -continue to monitor symptoms. Normocytic anemia: POA hemoglobin 8.0 hematocrit 24.9 MCV 93.3 due to iron-deficiency -no interventions needed at this time -will continue monitor -repeat lab in a.m. Generalized weakness: POA -PTOT GERD: POA -pantoprazole DVT prophylaxis -heparin Discharge Disposition: Pending detention facility placement Voice recognition software ([employer]) was used to complete this document. Despite proofreading, supervisor hydrochloric area variances and typographical errors may occur. 12/26/2022 3:58 PM * Pamela Mays - 12/26/2022 2:46 PM CDT Nutrition Assessment ASPEN/AND Malnutrition Screening ASPEN/AND Malnutrition Screening: Patient does not meet malnutrition criteria Subcutaneous Fat Loss Orbital Region - Surrounding the Eye: Slightly bulged fat pads Cheek Region - Buccal Fat: Full, round filled-out cheeks Muscle Loss [place] - Temporalis Muscle: Slight depression Reason for Assessment: Length of Stay Encounter Date: 12/26/22 3:42 PM Nutrition Assessment and Plan: Patient is a 72 y.o. female. Admit Dx: GI bleed [K92.2]. Admitted on 12/20/2022, current LOS is 6 days. PMH includes DM, HLD, HTN, schizophrenia, CKD, and CHF. BLEE +1. internet sales director saw Pt for LOS. Pt lying in bed. Pt seemed lethargic and confused. She says her appetite [employer] was good and it remainsthe same now. Pt reports no n/v/d/c [employer] and now. She says she believes she has lost a little bit ofWt within the past year, but was unable to remember how much. She stated her UBW as 143-145 lbs. Ptsays her last BM was a few days ago. internet sales director offered ONS. Pt says she is not interested in starting one at this moment. Pt fell asleep during assessment. Unable to ask Pt if she had any diet related questions. GI: WNL. Labs reviewed. HgA1c 7.1%. Glucose in 200's. Continue to monitor appetite, blood glucoses, PO intake, and Wt changes. Current diet order: Adult Diet Restricted; Consistent Carb 1600 chanelle Meal intake: 50% x 3, 75% x 2, and 100% x 5 Nutrition Diagnosis 1: Altered nutrition-related laboratory values Related to: Chronic illness/injury Evidenced by: Other (comment) (Glucose in 200's. HgA1c 7.1%.) Interventions: Assess for nutrition changes, Initial assessment, Encouragement Monitoring and Evaluation: Appetite, Blood glucoses, Discharge plans, Food preferences, Plan of care, PO intake, Weight changes, Labs Goals: Adequate nutrition to meet estimated needs by next assessment, Continue adequate PO intakes Estimated needs : Total Kcal/kg Estimated Needs : 1679.78 based on Kcal/k. Type of Weight Used for Estimated Kcals: Current Total Protein Estimated Needs (gm): 73.91 Protein Needs Based on g/k.1 Type of Weight Used for Estimated Protein : Current. Estimated Fluid Needs Total Fluid Estimated Needs Comments:: 1-2 L/ day (CHF) Objective Anthropometrics Weight: 67.2 kg (148 lb 2.1 oz) Admission Weight : 67.2 kg Weight Change: -0.30 kg (-0.68 lbs) IBW/kg (Calculated) : 49.9 kg Height: 157.5 cm (5' 2 ) Weight in (lb) to have BMI = 25: 136.4 BMI (Calculated): 27.1 BMI Classification: BMI 25.0 - 29.9 Overweight 3 Day I/O Summary 12/24 1899 - 12/26 658 In: - Out: 300 [Urine:300] Temp: 37 ??C (98.6 ??F) Past Medical History: Diagnosis Date Arthritis CHF (congestive heart failure) (CMS/HCC) (HCC) Dementia (HCC) Depression Diabetic neuropathy (HCC) Hyperlipidemia Hypertension Movement disorder Osteomyelitis (HCC) Renal disorder Schizophrenia (HCC) Type 2 diabetes mellitus (HCC) Medications and Lab Review: Scheduled Meds: [Held by Provider] atorvastatin, 20 mg, oral, Nightly benztropine, 1.5 mg, oral, Nightly ferrous sulfate, 65 mg of elemental iron, oral, Daily with breakfast heparin, 5,000 Units, subcutaneous, Q8H SOL hydrocortisone, 25 mg, rectal, BID insulin glargine, 10 Units, subcutaneous, Nightly insulin lispro, 0-5 Units, subcutaneous, Q4H SOL midodrine, 5 mg, oral, TID AC pantoprazole DR, 40 mg, oral, BID pregabalin, 75 mg, oral, Nightly sodium bicarbonate, 1,300 mg, oral, TID sodium chloride 0.9%, 0.5-20 mL, intra-catheter, Q8H SOL Continuous Infusions: Sodium Date Value Ref Range Status 12/26/2022 146 (H) 135 - 145 mmol/L Final Potassium, pl Date Value Ref Range Status 12/26/2022 4.7 3.3 - 4.9 mmol/L Final BUN Date Value Ref Range Status 12/26/2022 54 (H) 6 - 25 mg/dL Final Creatinine Date Value Ref Range Status 12/26/2022 3.68 (H) 0.60 - 1.10 mg/dL Final Albumin Date Value Ref Range Status 12/26/2022 2.8 (L) 3.5 - 5.0 g/dL Final Calcium Date Value Ref Range Status 12/26/2022 8.0 (L) 8.5 - 10.3 mg/dL Final Lab Results Component Value Date HGBA1C 7.1 (H) 11/30/2022 Lab Results Component Value Date GLUCOSE 291 (H) 12/26/2022 GLUCOSE 224 (H) 12/26/2022 GLUCOSE 234 (H) 12/26/2022 GLUCOSE 202 (H) 12/26/2022 GLUCOSE 147 12/26/2022 GLUCOSE 209 (H) 12/25/2022 GLUCOSE 244 (H) 12/24/2022 Nursing Assessment: Last BM Date: 12/24/22 Bowel Sounds (All Quadrants): Active Timoteo Scale Score: 18 Skin Integrity: Excoriation, Redness, Abrasion Diet Instructions Continue to follow a consistent carbohydrate diet upon discharge. Avoid concentrated sweets such ascookies, cake, candy and ice cream. Also, avoid sugar-sweetened beverages such as lemonade, sweet tea, regular soda, juice and Gatorade. Eat 45-60 g of carbohydrates at each meal. Eat 3 meals per dayand try to eat at consistent times. If interested, ask your doctor for referral to outpatient nutrition counseling. Call [facility] Dietitian's office at [phone] for questions about yourdiet. Additional resources available from the [place] [employer] can be found at [email or web address].org/nutrition Nutrition Follow-Up : 01/02/23 Pamela Mays,Licensed Audiologist Cosigned by Nadege Kowalski RD at 12/26/2022 3:42 PM CDT * Sarahy Liao PTA - 12/26/2022 2:36 PM CDT Physical Therapy PT PROGRESS NOTE PATIENT'S NAME:Sixto Chakraborty :1950 AGE:72 y.o. ROOM:[place] [id number] Past Medical History: Diagnosis Date Arthritis CHF (congestive heart failure) (CMS/HCC) ([facility]) Dementia (HCC) Depression Diabetic neuropathy (HCC) Hyperlipidemia Hypertension Movement disorder Osteomyelitis (HCC) Renal disorder Schizophrenia (HCC) Type 2 diabetes mellitus (HCC) Past Surgical History: Procedure Laterality Date SECTION Right right foot TOE AMPUTATION Right 01/06/2020 4th toe amp/ foot debridement/ Dr. Anat Pelayo Patient Active Problem List Diagnosis Schizoaffective disorder, bipolar type ([facility]) ([facility]) Diabetic neuropathy ([facility]) Type 2 diabetes mellitus with diabetic neuropathy, with long-term current use of insulin ([facility]) ([facility]) Hypertension associated with diabetes ([facility]) Amputation of toe of right foot ([facility]) ([facility]) Iron deficiency anemia Gastroesophageal reflux disease Hyperlipidemia associated with type 2 diabetes mellitus ([facility]) Dementia ([facility]) Schizoaffective disorder, bipolar type ([facility]) ([facility]) 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 2 diabetes mellitus ([facility]) ([facility]) Encounter for Medicare annual wellness exam Late onset Alzheimer's dementia without behavioral disturbance ([facility]) Volume overload Anemia Toe necrosis ([facility]) ([facility]) Physical deconditioning Left leg DVT ([facility]) ([facility]) Pulmonary nodule Retention of urine, unspecified Unspecified osteoarthritis, unspecified site Unsteadiness on feet Weakness Parkinsonism ([facility]) Wheezing Anemia in stage 4 chronic kidney disease ([facility]) Osteomyelitis of great toe of right foot ([facility]) ([facility]) Abnormal urinalysis Cellulitis of great toe of right foot CLEMENTE (acute kidney injury) ([facility]) ([facility]) Acute on chronic diastolic congestive heart failure ([facility]) ([facility]) Bibasilar consolidations Movement disorder Shortness of breath GI bleed Bandemia TIME IN: 236 TIME OUT: 304 SUBJECTIVE I want to get out of this bed. Patient agreeable to therapy. MENTAL STATUS/ORIENTATION: Alert and oriented x name, birthdate, hospital PAIN: Pre-therapy pain level: none Pain location: na Pain intervention: na Post-therapy pain level/response to intervention: none OBJECTIVE PRECAUTIONS: fall, contact, (MRSA) APPEARANCE/POSTURE: supine, HOB elevated, lunch tray in front of patient, patient sleeping but easyto rouse and agreeable to therapy. Cathter intact MOBILITY DOCUMENTATION: Bed Mobility/Transfers: supine to sit with extra time and MIN assist to square hips over edge. Patient partially follows commands. Will respond with a yep but then wait for therapist to initiate orcomplete task. Patient with difficulty scooting toward EOB without physical assist. Gait: 2' + 3' + 3' with w/w and MIN assist. Patient with tremors in SILVERIO UE and LE. Short steps, poor device management and safety. Unsure if anxiety or delayed command processing preventing patient from increased gait distance. TREATMENT: Patient performs seated HEP x 5-12 reps SILVERIO: LAQ and marching. Decreased ROM with LAQ. APPEARANCE/POSTURE (end of session): seated in recliner, chair alarm active, call light in reach, SILVERIO LE elevated, catheter intact EDUCATION:bed mobility , therapeutic exercises , functional transfer training, gait training , safety , and range of motion RESPONSE TO EDUCATION: needs reinforcement ASSESSMENT Activity tolerance/response to P.T.: FAIR + Patient is pleasant, limited mobility, some confusion. Barriers to learning: Physical and Cognitive Barriers to discharge: Limited family support, Cognitive deficit, Decreased endurance, Decreased sensation, Decreased proprioception, Upper extremity weakness, Lower extremity weakness, Long standingdeficits, and Incontinence of bladder Patient continues progressing toward previously set goals which remain appropriate at this time. PLAN PT Discharge Recommendations this date: CHANGE FROM IRF TO SNF PT Recommendation/Plan: Retirement Facility Patient at high risk for: Falls, Readmission, Injury due to decreased ability to care for self, Injury due to reduced functional status, Injury due to balance deficits, Developing secondary complications: poor health management Recommend SNF due to: Risk of injury at home, Unable to safely care for self in the home, Skilled therapy needed to address care for self in the home, Skilled therapy needed to address functional deficits, Skilled therapy needed for patient to return to prior level of independence (Patient unable to tolerate 3 hours of therapy at this time.) PT Recommendation/Plan Comments: (Will review change to therapy recommendation with PT. SNF more appropriate at this time due to patient's level of participation.) PT Frequency during current admission: 3-5x/wk Refer to multi-disciplinary care plan section for PT specific goals. If this is the last note, please consider this the discharge summary. Cosigned by Nelly Hughes PT at 12/26/2022 3:35 PM CDT * Nemo Diop, [employer] - 12/25/2022 2:57 PM CDT Physical Therapy PT PROGRESS NOTE PATIENT'S NAME:Sixto Chakraborty :1950 AGE:72 y.o. ROOM:[place] [address] Past Medical History: Diagnosis Date Arthritis CHF [...] due to type 2 diabetes mellitus (CMS/HCC) ([facility]) Encounter for Medicare annual wellness exam Late [...] of right foot (CMS/HCC) (HCC) Abnormal urinalysis Cellulitis of great toe of right foot CLEMENTE (acute kidney injury) (CMS/HCC) (HCC) Acute on chronic diastolic congestive heart failure (CMS/HCC) (HCC) Bibasilar consolidations Movement disorder Shortness of breath GI bleed Bandemia TIME IN: 1458 TIME OUT: 1522 SUBJECTIVE Patient reports she is ok, agreeable to therapy MENTAL STATUS/ORIENTATION: Alert and oriented x4 PAIN: Pre-therapy pain level: 0/10 Pain location: n/a Pain intervention: n/a Post-therapy pain level/response to intervention: 0/10 OBJECTIVE PRECAUTIONS: fall risk, contact isolation, MRSA APPEARANCE/POSTURE: sitting in bed side recliner silverio le elevated, iv line running in left ue, foleycatheter in place, call light next to patient, alarm on and in place VITAL SIGNS: Resting heart rate: 76 Resting O2 sat: 98% MOBILITY DOCUMENTATION: Bed Mobility/Transfers: sit to/from stand min assist, mod assist to stand from standard toilet withpatient using grab bar right ue, sit to supine mod assist to lift silverio le Gait: amb 20'x2 w/w min assist slow lanny, decreased step length TREATMENT: Sitting le ex x 8 reps Continent of bowel movement on standard toilet APPEARANCE/POSTURE (end of session): supine in bed waffle mattress inflated, hand off given to nurse Sixto appearance otherwise unchanged from PT arrival in room EDUCATION:bed mobility , therapeutic exercises , functional transfer training, gait training , strengthening, and safety RESPONSE TO EDUCATION: demonstrated understanding, needs reinforcement, and verbalizes understanding ASSESSMENT Activity tolerance/response to P.T.: patient sharad tx session with some c/o fatigue with amb 20' x 2 w/w min assist Barriers to learning: Physical Barriers to discharge: Limited family support, Cognitive deficit, Decreased endurance, Upper extremity weakness, Lower extremity weakness, Incontinence of bladder, and Skin Care Patient continues progressing toward previously set goals which remain appropriate at this time. PLAN PT Discharge Recommendations this date: PT Recommendation/Plan: Inpatient Rehab Facility Patient at high risk for: Falls, Readmission, Injury due to decreased ability to care for self, Injury due to reduced functional status, Injury due to balance deficits, Developing secondary complications: poor health management Recommend Inpatient Rehab/Acute Rehab due to: Ability to actively participate in intensive therapy 3 hours/day, 5 days/week or 900 minutes per week, Not at baseline due to impaired ability to complete ADLs, Impaired ability to complete functional mobility, Likely to return to the community at discharge with support system in place, Requires greater than 25% physical assistance with most mobility tasks, Requires multiple therapy disciplines to address functional deficits PT Recommendation/Plan Comments: Patient is a 72 y/o female presenting with weakness. PLOF, indep with w/w. At eval, patient needs max A for transfers. Recommend intensive PT at an IP Rehab to improve problem list and indep. PT Frequency during current admission: 3-5x/wk Refer to multi-disciplinary care plan section for PT specific goals. If this is the last note, please consider this the discharge summary. Cosigned by Bronson Marino, PT at 12/31/2022 2:15 PM CDT * Darren Morgan, DO - 12/25/2022 1:38 PM CDT [facility] Hospitalist Service Progress Note Patient Name: Sixto Chakraborty Patient : 1950 Age/Sex: 72 y.o. female Room/Bed: [facility]/[id number] Admission Date/Time: 12/20/2022 5:31 AM Date: 12/25/2022 Time: 1:38 PM Chief complaint: POA hand shakes History of Present Illness and Hospital Course: This is a 72-year-old black female was admitted secondary to fatigue and weakness. In the emergencydepartment patient was found to have what appeared to be a GI bleed. GI was consulted and patient was admitted Patient's hemoglobin dropped a small amount on 12/21. Transfusion was not needed Patient has existing osteomyelitis of the great toe. She is on daptomycin and Flagyl until Patient's kidney function is acutely worsened this hospitalization compared to previous. Is possible as the secondary to medications At baseline patient has stage IIIB chronic kidney disease. We are holding diuresis 12/23/2022 The patient is seen and examined at bedside. Patient awake and sitting in chair. Denies any symptoms or complaints. Creatinine is getting better today. SUBJECTIVE Interval History: Patient seen examined. No lab draws today yet however yesterday creatinine did improve patient has no complaints. I spoke with nursing staff at bedside. We discussed the case in detail. All of their concerns were addressed. Review of Systems: Constitutional: denies weight loss, weight gain Head: denies headache , dizziness, lightheadedness, loc Nose/Throat: denies dysphagia, soreness, rhinorrhea Cardiovascular: denies chest pain, palpitations, syncope Resp: denies, shortness of breath, cough,hemoptysis Peripheral: denies weakness , numbness, tingling Gi: denies nausea , vomiting, diarrhea Gu: denies dysuria, hematuria Musculoskeletal: weakness, joint pain, positive hand tremor Neuro: denies problems with gait, dizziness, seizures. Endocrine: denies diabetes, thyroid. Allergies: No Known Allergies Current Medication List: Scheduled Meds:[Held by Provider] atorvastatin, 20 mg, oral, Nightly benztropine, 1.5 mg, oral, Nightly ferrous sulfate, 65 mg of elemental iron, oral, Daily with breakfast heparin, 5,000 Units, subcutaneous, Q8H SOL hydrocortisone, 25 mg, rectal, BID insulin glargine, 8 Units, subcutaneous, Nightly insulin lispro, 0-5 Units, subcutaneous, Q4H SOL midodrine, 10 mg, oral, TID AC pantoprazole DR, 40 mg, oral, BID pregabalin, 75 mg, oral, Nightly sodium bicarbonate, 1,300 mg, oral, TID sodium chloride 0.9%, 0.5-20 mL, intra-catheter, Q8H SOL Continuous Infusions:sodium chloride 0.9%, 125 mL/hr, Last Rate: 125 mL/hr (12/25/22 0753) PRN Meds: acetaminophen albuterol HFA sodium chloride 0.9% dextrose OR dextrose glucagon ondansetron ODT OR ondansetron phenylephrine 0.25%-mineral oil 14%-petrolatum 74.9% prochlorperazine OR prochlorperazine ramelteon senna-docusate sodium chloride 0.9% OBJECTIVE Vitals: Vitals: 12/24/22 1517 12/24/22 1947 12/24/22 2331 12/25/22 0753 BP: 153/66 149/73 144/60 (!) 118/103 BP Location: Right arm Left arm Patient Position: Pulse: 67 68 70 72 Resp: Temp: 36.6 ??C (97.9 ??F) 36.6 ??C (97.9 ??F) 37.1 ??C (98.7 ??F) TempSrc: Oral Axillary SpO2: 95% 96% 100% 99% Weight: 67.2 kg (148 lb 2.1 oz) Height: 157.5 cm (5' 2 ) Physical Exam: Physical Exam HENT: Head: Normocephalic. Mouth/Throat: Mouth: Mucous membranes are moist. Eyes: Pupils: Pupils are equal, round, and reactive to light. Cardiovascular: Rate and Rhythm: Normal rate. Pulmonary: Effort: Pulmonary effort is normal. Abdominal: Palpations: Abdomen is soft. Musculoskeletal: General: Normal range of motion. Comments: Patient is very weak to upper and lower extremity Skin: General: Skin is warm. Capillary Refill: Capillary refill takes less than 2 seconds. Neurological: General: No focal deficit present. Mental Status: She is alert. Psychiatric: Mood and Affect: Mood normal. Pertinent Diagnostics: I have reviewed the pertinent laboratory, radiographic, and other diagnosticstudies. Recent Results (from the past 24 hour(s)) POCT glucose Collection Time: 12/24/22 4:45 PM Result Value Ref Range Glucose, POC 279 (H) 70 - 199 mg/dL POCT glucose Collection Time: 12/24/22 8:10 PM Result Value Ref Range Glucose, POC 231 (H) 70 - 199 mg/dL POCT glucose Collection Time: 12/24/22 11:25 PM Result Value Ref Range Glucose, POC 275 (H) 70 - 199 mg/dL POCT glucose Collection Time: 12/25/22 4:25 AM Result Value Ref Range Glucose, POC 197 70 - 199 mg/dL POCT glucose Collection Time: 12/25/22 7:55 AM Result Value Ref Range Glucose, POC 151 70 - 199 mg/dL POCT glucose Collection Time: 12/25/22 11:35 AM Result Value Ref Range Glucose, POC 220 (H) 70 - 199 mg/dL ASSESSMENT AND PLAN: All conditions are present on admission unless otherwise noted. Acute on chronic kidney disease: Worsening according to records baseline 2.3-2.7 currently creatinine 6.99 BUN 104 GFR 6 stage 5 -nephrology is aware and is currently trying to address this -it is assumed that this is due to diuresis -diuresis has been held at this time and patient is receiving intermittent fluids -creatinine finally plateaued and starting to improve. Continue to monitor. Possibly discharge tomorrow or the weekend if creatinine continues to improve Foot/toe osteomyelitis: POA -infectious Disease on the case -patient just completed daptomycin and Flagyl on 12/23/2022 -appreciate ID recommendations moving forward -wound care is on the case Urinary tract infection: POA patient's urinalysis on 12/20/2022 noted leukocyte esterase 3+ WBC greater than 50 yeast 4+ -patient currently finishing 2 antibiotics, daptomycin Flagyl per Infectious Disease -will monitor patient's kidney functions as well while giving antibiotic Hypertension: POA -continue with amlodipine, carvedilol -monitor per floor protocol Diabetes mellitus type 2: POA -sliding scale insulin -Accu check a.c. HS -basal insulin, still hyperglycemic will increase Lantus from 5-8 units nightly -consistent carb diet Hand tremor: POA -continue Cogentin -continue to monitor symptoms. Normocytic anemia: POA hemoglobin 8.0 hematocrit 24.9 MCV 93.3 due to iron-deficiency -no interventions needed at this time -will continue monitor -repeat lab in a.m. Generalized weakness: POA -PTOT GERD: POA -pantoprazole DVT prophylaxis -heparin Discharge Disposition: Pending continued improvement in renal function Voice recognition software ([employer]) was used to complete this document. Despite proofreading, supervisor hydrochloric area variances and typographical errors may occur. 12/25/2022 1:38 PM * Jimbo Strauss MD - 12/25/2022 1:31 PM CDT Nephrology Daily Progress [facility]# [id number] SS#: [id number] Phone#: [phone] #: 1950 Subjective Chief complaint of Interval History: Nonverbal, looks comfortable. Poor p.o. intake. Objective Vitals: 24hr Min/Max: Temp Min: 36.3 ??C (97.4 ??F) Max: 37.1 ??C (98.7 ??F) Pulse Min: 70 Max: 80 BP Min: 118/103 Max: 155/67 Resp Min: 18 Max: 18 SpO2 Min: 98 % Max: 100 % Intake/Output Summary (Last 24 hours) at 12/25/20221 Last data filed at 12/25/2022 1640 Gross per 24 hour Intake -- Output 300 ml Net -300 ml Wt Readings from Last 3 Encounters: 12/25/22 67.2 kg (148 lb 2.1 oz) 12/06/22 78.9 kg (173 lb 15.1 oz) 12/05/22 79.3 kg (174 lb 12.8 oz) Temp Av.7 ??C (98 ??F) Min: 36.3 ??C (97.4 ??F) Max: 37.1 ??C (98.7 ??F) BP Min: 118/103 Max: 155/67 Pulse Av.5 Min: 70 Max: 80 Resp Av Min: 18 Max: 18 SpO2 Av % Min: 98 % Max: 100 % Most Recent: Vitals: 12/25/221927 BP: 155/67 Pulse: 80 Resp: 18 Temp: 36.6 ??C (97.9 ??F) SpO2: 99% I/O last 2 completed shifts: In: - Out: 300 [Urine:300] No intake/output data recorded. Current Facility-Administered Medications Medication Dose Route Frequency Last Rate Last Admin acetaminophen (TYLENOL) tablet 650 mg 650 mg oral Q4H PRN albuterol HFA (PROVENTIL HFA,VENTOLIN HFA,PROAIR HFA) 90 mcg/actuation inhaler 2 puff 2 puff inhalation Q4H PRN (RT) [Held by Provider] atorvastatin (LIPITOR) tablet 20 mg 20 mg oral Nightly benztropine (COGENTIN) tablet 1.5 mg 1.5 mg oral Nightly 1.5 mg at 12/25/222151 Carrier Fluids for Secondary Infusion - 0.9% Sodium Chloride 30 mL intravenous PRN dextrose oral liquid liquid 15 g 15 g oral Q15 Min PRN Or dextrose (D10W) 10% bolus 250 mL 250 mL intravenous Q15 Min PRN ferrous sulfate delayed release tablet 65 mg of elemental iron 65 mg of elemental iron oral Daily with breakfast 65 mg of elemental iron at 12/25/22 1036 glucagon injection 1 mg 1 mg intramuscular Q30 Min PRN heparin 5,000 unit/mL injection 5,000 Units 5,000 Units subcutaneous Q8H SOL 5,000 Units at 072153 hydrocortisone (ANUSOL-HC) suppository 25 mg 25 mg rectal BID 25 mg at 12/24/222102 insulin glargine (LANTUS, SEMGLEE) 100 unit/mL injection 8 Units 8 Units subcutaneous Nightly 8 Units at 12/25/222154 insulin lispro (HumaLOG, ADMELOG) 100 unit/mL injection 0-5 Units 0-5 Units subcutaneous Q4H SOL 2 Units at 12/25/222153 midodrine (PROAMATINE) tablet 10 mg 10 mg oral TID AC 10 mg at 12/25/221318 ondansetron ODT (ZOFRAN-ODT) disintegrating tablet 4 mg 4 mg oral Q6H PRN Or ondansetron (ZOFRAN) injection 4 mg 4 mg intravenous Q6H PRN pantoprazole DR (PROTONIX) extended release tablet 40 mg 40 mg oral BID 40 mg at 12/25/222150 phenylephrine 0.25%-mineral oil 14%-petrolatum 74.9% ointment rectal QID PRN pregabalin (LYRICA) capsule 75 mg 75 mg oral Nightly 75 mg at 12/25/222151 prochlorperazine (COMPAZINE) tablet 5 mg 5 mg oral Q6H PRN Or prochlorperazine (COMPAZINE) injection 5 mg 5 mg intravenous Q6H PRN ramelteon (ROZEREM) tablet 8 mg 8 mg oral Nightly PRN senna-docusate (PERICOLACE) 8.6-50 mg per tablet 1 tablet 1 tablet oral BID PRN sodium bicarbonate tablet 1,300 mg 1,300 mg oral TID 1,300 mg at 12/25/222151 sodium chloride 0.9% flush 0.5-20 mL 0.5-20 mL intra-catheter Q8H SOL 10 mL at 12/25/222158 sodium chloride 0.9% flush 0.5-20 mL 0.5-20 mL intra-catheter PRN Continuous Medications Medication Dose Last Rate LDA: PICC Single Lumen 11/11/22 Non-tunneled Power Left Brachial;Upper arm (Active) Placement Date/Time: 11/11/220 Placed by External Staff?: Other hospital Catheter Time Out Checklist Completed: Yes Hand Hygiene Performed: Yes Site Prep: Chlorhexidine Site Prep Agent has Completely Dried Before Insertion: Yes All 5 Steril... Number of days: 40 Urethral Catheter Double-lumen;Non-latex (Active) Placement Date/Time: 12/20/222199 Inserted by: Salvador Smith RN Catheter Type: Double-lumen;Non-latex Tube Size (Fr.): 16 Fr Catheter Balloon Size: 10 mL Urine Returned: Yes Number of days: 0 Vent settings: Hemodynamic parameters for last 24 hours: Physical Exam: General Appearance: Alert, cooperative, confused not following any commands. Head: Normocephalic, without obvious abnormality, atraumatic Eyes: [...] all four quadrants, non-distended Extremities: Extremities normal, thigh edema. Skin: Skin color, texture, turgor normal, no rashes, lesions or bruising Neurologic: Alert & oriented to person. Moves extremities to painful stimuli. Psychosocial: flat Dialysis Access Exam: Lab/Radiology/Diagnostic Review: Recent Labs Lab Units 12/25/22 2033 12/24/22 1119 12/24/22 1046 12/23/22 0729 12/23/22 0725 12/22/22 1222 12/22/22 0748 12/21/22 1140 12/21/22 0808 SODIUM mmol/L -- -- 142 -- 139 -- 136 -- 139 POTASSIUM PLASMA mmol/L -- -- 5.0* -- 4.9 -- 4.9 -- 4.9 CHLORIDE mmol/L -- -- 108 -- 102 -- 100 -- 102 CO2 mmol/L -- -- 18* -- 16* -- 18* -- 22 BUN SERUM mg/dL -- -- 92* -- 108* -- 104* -- 94* CREATININE mg/dL -- -- 5.81* -- 7.34* -- 6.99* -- 5.43* [id number] mL/min/1.73 m2 -- -- 7 -- 5 -- 6 -- 8 GLUCOSE mg/dL -- -- 244* -- 129 -- 196 -- 150 POC GLUCOSE MONITOR mg/dL 209* < > -- < > -- < > -- < > -- CALCIUM mg/dL -- -- 8.3* -- 7.8* -- 8.0* -- 8.9 ALBUMIN g/dL -- -- -- -- 2.8* -- 2.7* -- 2.8* PHOSPHORUS PLASMA mg/dL -- -- -- -- -- -- 8.4* -- -- < > = values in this interval not displayed. Additional Labs: Recent Labs Lab Units 12/23/22 0725 12/23/22 0010 12/22/22 0805 12/22/22 0748 WBC K/cumm 8.7 9.5 9.5 9.7 9.4 HEMOGLOBIN g/dL 8.0* 8.8* 8.3* 8.4* 8.7* HEMATOCRIT % 24.9* 27.3* 26.4* 26.5* 27.2* PLATELETS K/cumm 284 294 288 283 306 NEUTROS PCT % -- 66.6 65.5 65.4 65.1 LYMPHS PCT % -- 21.3 22.1 22.2 22.4 MONOS PCT % -- 9.0 9.8 10.1 9.9 EOS PCT % -- 2.4 1.9 1.7 2.0 Assessment/Plan 1. chronic kidney disease: Stage IIIB, due to diabetes and hypertension. Creatinine has gone up dueto diuresis. We will hold for now. As off 12/22/2022 creatinine is worse. Will give iv fluids, hold diuretics As off 12/24/2022 creatinine is a bit better. As off 12/25/2022 no labs drawn today. Fluid rate has been reduced 2. Hypertension: Blood pressures we will control As off 12/25/2022 has needed mirodrine. Will be weaned off slowly 3. Edema: This is much better compared to the last admission. Due to chronic kidney disease and pulmonary hypertension. As of 12/21/2022 no lower extremity edema. 4. Anemia: Possible GI bleed. Possibly chronic kidney disease related. Possible iron deficiency. 5. Tremors: Possibly early Parkinson's. 6. Metabolic acidosis: possible related to renal failure. Add sodium bicarbonate DICTATION DISCLAIMER: This note is transcribed using the [employer] direct voice recognition system without human menagerie superintendent. In an effort to expedite patient care, this note has not been adjusted for typographical, grammatical, and syntax by a trained medical records custodian. Portions of this note have been copied from the medical record, but edited appropriately to accurately reflect the patient's current clinical state. Jimbo Strauss Office/exchange: [phone] Pager: [phone] * Linette Hope COTA - 12/25/2022 9:43 AM CDT Occupational Therapy NOTE / SESSION TYPE: DAILY PROGRESS / TREATMENT Patient's Name: Sixto Chakraborty Age / Sex: 72 y.o. / female Room: [place] [id number] : 1950 Date of service: 12/25/22 TIME IN: 914 TIME OUT: 939 Patient Active Problem List Diagnosis Schizoaffective disorder, bipolar type ([facility]) ([facility]) Diabetic neuropathy ([facility]) Type 2 diabetes mellitus with diabetic neuropathy, with long-term current use of insulin ([facility]) ([facility]) Hypertension associated with diabetes ([facility]) Amputation of toe of right foot ([facility]) ([facility]) Iron deficiency anemia Gastroesophageal reflux disease Hyperlipidemia associated with type 2 diabetes mellitus ([facility]) Dementia ([facility]) Schizoaffective disorder, bipolar type ([facility]) ([facility]) 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 2 diabetes mellitus ([facility]) ([facility]) Encounter for Medicare annual wellness exam Late onset Alzheimer's dementia without behavioral disturbance ([facility]) Volume overload Anemia Toe necrosis ([facility]) ([facility]) Physical deconditioning Left leg DVT ([facility]) ([facility]) Pulmonary nodule Retention of urine, unspecified Unspecified osteoarthritis, unspecified site Unsteadiness on feet Weakness Parkinsonism ([facility]) Wheezing Anemia in stage 4 chronic kidney disease ([facility]) Osteomyelitis of great toe of right foot ([facility]) ([facility]) Abnormal urinalysis Cellulitis of great toe of right foot CLEMENTE (acute kidney injury) ([facility]) ([facility]) Acute on chronic diastolic congestive heart failure ([facility]) ([facility]) Bibasilar consolidations Movement disorder Shortness of breath GI bleed Bandemia Past Medical History: Diagnosis Date Arthritis CHF (congestive heart failure) ([facility]) ([facility]) Dementia ([facility]) Depression Diabetic neuropathy ([facility]) Hyperlipidemia Hypertension Movement disorder Osteomyelitis ([facility]) Renal disorder Schizophrenia ([facility]) Type 2 diabetes mellitus ([facility]) Past Surgical History: Procedure Laterality Date SECTION Right right foot TOE AMPUTATION Right 01/06/2020 4th toe amp/ foot debridement/ Dr. Anat Pelayo Precautions (including weight-bearing): Fall risk, Bed / chair alarm, and Contact isolation: MRSA Subjective: I'd like to get up Therapy Pain: Pre-therapy pain level: 0 /10 Pain location: No pain - Location N/A Pain Intervention(s): No pain - Intervention N/A Post-therapy pain level: 0 /10 Pain scale reference: 0-10 SCALE Objective: Appearance: Presentation upon OT arrival: Patient Sidelying left Presentation upon OT departure: Patient Sitting in bedside recliner Bed / Chair alarm in place and activated upon OT departure: Yes Call light within arms reach of patient at end of session: Yes Completed patient handoff and notified AREA MECHANIC / RN, name: Sixto, of patient's location and functional status upon completion of session Cognitive / Perceptual: WFL Mobility / Transfers: Bed Mobility: MIN A supine > sitting with vc's and extended time needed Transfer(s): CGA with handheld assistance to stand pivot EOB > BSR Living Skills / Other Activities: Patient had incontinent episode of BM in bed, CGA for standing ~ 1 minute while therapist assisted with yenny hygiene with MAX A. UE DRESSING LOCATION OF UE DRESSING: Sitting in bedside chair / recliner TASKS COMPLETED: Hospital gown OVERALL ASSIST LEVEL: PARTIAL / MODERATE ASSISTANCE: LESS THAN HALF (1% - 49%) ADDITIONAL DOCUMENTATION: MIN A due to IV line Caregiver Present: No Education & Training Provided: Role of OT, OT plan of care, ADL training, Bed mobility training, Functional transfer training, Balance training, and Safety education Assessment: Activity tolerance / response to OT session: GOOD PARTICIPATION, GOOD MOTIVATION, RECEPTIVE TO EDUCATION / TRAINING, and FAIR TOLERANCE Progress towards goals: Please refer to care plan from this date for progress towards individual goals Plan: Therapy Plan: Rehab Potential (Prognosis): good OT Recommendations This Date: OT RECOMMENDATIONS: OT Recommendation: Retirement Facility Flow sheet updated and OT Consultation in Regards to Change in Discharge Recommendations: YES /NO: No Additional recommendation comments: Recommend SNF due to: Risk of injury at home, Unable to safely care for self in the home, Skilled therapy needed to address care for self in the home, Skilled therapy needed to address functional deficits, Skilled therapy needed for patient to return to prior level of independence Frequency of therapy:OT Frequency during current admission: 3-5x/wk If this is the last note, consider this the discharge summary MICHEAL Navarro 12/25/22 Cosigned by Pat Alcazar OT at 12/25/2022 12:50 PM CDT * nE Chaudhary MD - 12/25/2022 8:37 AM CDT Images from the original note were not included. Infectious Disease Progress Note Sixto Chakraborty Admit Date: 12/20/2022 5:31 AM 12/25/2022 Hospital Day: 6 Requesting provider: Edmond Lara MD Reason for Consultation: osteomyelitis, UTI Subjective: Afebrile. Pt is on room air. Up in chair. Denies pain. Appetite is so-so. ROS: Denies N/V/D/SOB/cough/rashes MEDICATIONS FOR CURRENT ENCOUNTER: Current Facility-Administered Medications Medication Dose Route Frequency Provider Last Rate Last Admin acetaminophen (TYLENOL) tablet 650 mg 650 mg oral Q4H PRN Edmond Lara MD albuterol HFA (PROVENTIL HFA,VENTOLIN HFA,PROAIR HFA) 90 mcg/actuation inhaler 2 puff 2 puff inhalation Q4H PRN (RT) Edmond Lara MD [Held by Provider] atorvastatin (LIPITOR) tablet 20 mg 20 mg oral Nightly Edmond Lara MD benztropine (COGENTIN) tablet 1.5 mg 1.5 mg oral Nightly Celsa Pedraza NP 1.5 mg at 12/24/222101 Carrier Fluids for Secondary Infusion - 0.9% Sodium Chloride 30 mL intravenous PRN Celsa Pedraza NP dextrose oral liquid liquid 15 g 15 g oral Q15 Min PRN Celsa Pedraza NP Or dextrose (D10W) 10% bolus 250 mL 250 mL intravenous Q15 Min PRN Celsa Pedraza NP ferrous sulfate delayed release tablet 65 mg of elemental iron 65 mg of elemental iron oral Daily with breakfast Edmond Lara MD 65 mg of elemental iron at 12/24/22 0802 glucagon injection 1 mg 1 mg intramuscular Q30 Min PRN Celsa Pedraza NP heparin 5,000 unit/mL injection 5,000 Units 5,000 Units subcutaneous Q8H [facility] Edmond Lara MD 5,000 Units at 12/25/22 0535 hydrocortisone (ANUSOL-HC) suppository 25 mg 25 mg rectal BID Kim Looney MD 25 mg at 12/24/222102 insulin glargine (LANTUS, SEMGLEE) 100 unit/mL injection 8 Units 8 Units subcutaneous Nightly Darren Morgan DO 8 Units at 12/24/222100 insulin lispro (HumaLOG, ADMELOG) 100 unit/mL injection 0-5 Units 0-5 Units subcutaneous Q4H [facility] Celsa Pedraza NP 1 Units at 12/25/22 0431 midodrine (PROAMATINE) tablet 10 mg 10 mg oral TID AC Jimbo Strauss MD 10 mg at 12/24/22 1648 ondansetron ODT (ZOFRAN-ODT) disintegrating tablet 4 mg 4 mg oral Q6H PRN Edmond Lara MD Or ondansetron (ZOFRAN) injection 4 mg 4 mg intravenous Q6H PRN Edmond Lara MD pantoprazole DR (PROTONIX) extended release tablet 40 mg 40 mg oral BID Zhang Mendez MD40 mg at 12/24/222102 phenylephrine 0.25%-mineral oil 14%-petrolatum 74.9% ointment rectal QID PRN Kim Looney MD pregabalin (LYRICA) capsule 75 mg 75 mg oral Nightly Edmond Lara MD 75 mg at 12/24/222101 prochlorperazine (COMPAZINE) tablet 5 mg 5 mg oral Q6H PRN Celsa Pedraza NP Or prochlorperazine (COMPAZINE) injection 5 mg 5 mg intravenous Q6H PRN Celsa Pedraza NP ramelteon (ROZEREM) tablet 8 mg 8 mg oral Nightly PRN Edmond Lara MD senna-docusate (PERICOLACE) 8.6-50 mg per tablet 1 tablet 1 tablet oral BID PRN Edmond Lara MD sodium bicarbonate tablet 1,300 mg 1,300 mg oral TID Jimbo Strauss MD 1,300 mg at 12/24/222101 sodium chloride 0.9% flush 0.5-20 mL 0.5-20 mL intra-catheter Q8H SOL Celsa Pedraza NP 10mL at 12/25/22 0535 sodium chloride 0.9% flush 0.5-20 mL 0.5-20 mL intra-catheter PRN Celsa Pedraza NP sodium chloride 0.9% infusion 125 mL/hr intravenous Continuous Jimbo Strauss MD 125 mL/hr at 12/25/22 0753 125 mL/hr at 12/25/22 0753 Objective: Vitals: 12/24/22 1517 12/24/22 1947 12/24/22 2331 12/25/22 0753 BP: 153/66 149/73 144/60 (!) 118/103 BP Location: Right arm Left arm Patient Position: Pulse: 67 68 70 72 Resp: 16 18 18 18 Temp: 36.6 ??C (97.9 ??F) 36.6 ??C (97.9 ??F) 37.1 ??C (98.7 ??F) TempSrc: Oral Axillary SpO2: 95% 96% 100% 99% Weight: Height: Temp (24hrs), Av.8 ??C (98.2 ??F), Min:36.6 ??C (97.9 ??F), Max:37.1 ??C (98.7 ??F) Height: 157.5 cm (5' 2 ) Weight: 67.5 kg (148 lb 13 oz) Intake/Output Summary (Last 24 hours) at 12/25/2022 0837 Last data filed at 12/24/2022 1515 Gross per 24 hour Intake -- Output 2200 ml Net -2200 ml Exam: General: no acute distress HEENT: dry mucus membranes Heart: RRR, no murmurs Lungs: clear to ausculation bilaterally, no wheezes or crackles Abdomen: soft, non-tender, non-distended, + bowel sounds Extremities: no LE edema; R great toe edema with ulcer Skin: no rash Neuro: sleeping, briefly woke to voice and then went back to sleep [facility] 12/08 Lab: Reviewed. Recent Labs Lab Units 12/25/22 0755 12/25/22 0425 12/24/22 2325 12/24/22 1119 12/24/22 1046 12/23/22 0729 12/23/22 0725 12/22/22 1222 12/22/22 0748 12/21/22 1140 12/21/22 0808 SODIUM mmol/L -- -- -- -- 142 -- 139 -- 136 -- 139 POTASSIUM PLASMA mmol/L -- -- -- -- 5.0* -- 4.9 -- 4.9 -- 4.9 CHLORIDE mmol/L -- -- -- -- 108 -- 102 -- 100 -- 102 CO2 mmol/L -- -- -- -- 18* -- 16* -- 18* -- 22 ANIONGAP mmol/L -- -- -- -- 16* -- 21* -- 18* -- 15 GLUCOSE mg/dL -- -- -- -- 244* -- 129 -- 196 -- 150 POC GLUCOSE MONITOR mg/dL 151 197 275* < > -- < > -- < > -- < > -- BUN SERUM mg/dL -- -- -- -- 92* -- 108* -- 104* -- 94* CREATININE mg/dL -- -- -- -- 5.81* -- 7.34* -- 6.99* -- 5.43* CALCIUM mg/dL -- -- -- -- 8.3* -- 7.8* -- 8.0* -- 8.9 ALBUMIN g/dL -- -- -- -- -- -- 2.8* -- 2.7* -- 2.8* ALK PHOS Units/L -- -- -- -- -- -- 147* -- 169* -- 109 ALT Units/L -- -- -- -- -- -- 13 -- 14 -- 11 AST Units/L -- -- -- -- -- -- 18 -- 22 -- 18 BILIRUBIN TOTAL mg/dL -- -- -- -- -- -- <0.2 -- <0.2 -- <0.2 < > = values in this interval not displayed. Recent Labs Lab Units 12/23/22 0725 12/23/22 0010 12/22/22 0805 WBC K/cumm 8.7 9.5 9.5 9.7 HEMOGLOBIN g/dL 8.0* 8.8* 8.3* 8.4* HEMATOCRIT % 24.9* 27.3* 26.4* 26.5* PLATELETS K/cumm 284 294 288 283 [facility] - [phone] 12/19 urine cx (from [facility]); ng finaal 12/16 CK 180 12/20 urine cx:insig growth 12/20 blood cx: ng Assessment: 72 y.o. femalewith past medical history of CHF, DM (A1C 7.1 on 11/30), arthritis, dementia, schizophrenia, CKD, neuropathy, HLD, HTN and depression, presented to [facility] from [facility] as transfer for GI eval. R great toe osteomyelitis, completed on dapto/Flagyl until 12/23 Possible UTI GI bleed Acute on CKD DM with neuropathy Plan: -Observe off abx. Repeat urine cx insig growth. -Completed IV dapto and Flagyl 12/23 -Blood cx ngtd. Urine cx insig growth -We called [facility] and urine cx 12/19 is no growth-final -GI consulted -Nephrology consulted -Follow CBC, CMP and temps -Supportive care ID will sign off. Please call with any questions or concerns. I personally spent a portion of this patient encounter with AUTOMATION ARCHITECT. I fully performed the assessment. Iagree with the impression and plan and have made adjustments as needed. I spent 10 minutes of non overlapping time in managing the patient independent from AUTOMATION ARCHITECT today. JARAD Chavez MD [place] [facility] [phone] For weekend coverage: [facility] [phone] * Darren Morgan, - 12/24/2022 5:19 PM CDT [facility] Hospitalist Service Progress Note Patient Name: Sixto Chakraborty Patient : 1950 Age/Sex: 72 y.o. female Room/Bed: [facility]/[id number] Admission Date/Time: 12/20/2022 5:31 AM Date: 12/24/2022 Time: 5:19 PM Chief complaint: POA hand shakes History of Present Illness and Hospital Course: This is a 72-year-old black female was admitted secondary to fatigue and weakness. In the emergencydepartment patient was found to have what appeared to be a GI bleed. GI was consulted and patient was admitted Patient's hemoglobin dropped a small amount on 12/21. Transfusion was not needed Patient has existing osteomyelitis of the great toe. She is on daptomycin and Flagyl until Patient's kidney function is acutely worsened this hospitalization compared to previous. Is possible as the secondary to medications At baseline patient has stage IIIB chronic kidney disease. We are holding diuresis SUBJECTIVE Interval History: 12/23/2022 The patient is seen and examined at bedside. Patient awake and sitting in chair. Denies any symptoms or complaints. Creatinine is getting better today. I spoke with nursing staff at bedside. We discussed the case in detail. All of their concerns were addressed. Review of Systems: Constitutional: denies weight loss, weight gain Head: denies headache , dizziness, lightheadedness, loc Nose/Throat: denies dysphagia, soreness, rhinorrhea Cardiovascular: denies chest pain, palpitations, syncope Resp: denies, shortness of breath, cough,hemoptysis Peripheral: denies weakness , numbness, tingling Gi: denies nausea , vomiting, diarrhea Gu: denies dysuria, hematuria Musculoskeletal: weakness, joint pain, positive hand tremor Neuro: denies problems with gait, dizziness, seizures. Endocrine: denies diabetes, thyroid. Allergies: No Known Allergies Current Medication List: Scheduled Meds:[Held by Provider] atorvastatin, 20 mg, oral, Nightly benztropine, 1.5 mg, oral, Nightly ferrous sulfate, 65 mg of elemental iron, oral, Daily with breakfast heparin, 5,000 Units, subcutaneous, Q8H SOL hydrocortisone, 25 mg, rectal, BID insulin glargine, 5 Units, subcutaneous, Nightly insulin lispro, 0-5 Units, subcutaneous, Q4H SOL midodrine, 10 mg, oral, TID AC pantoprazole DR, 40 mg, oral, BID pregabalin, 75 mg, oral, Nightly sodium bicarbonate, 1,300 mg, oral, TID sodium chloride 0.9%, 0.5-20 mL, intra-catheter, Q8H SOL Continuous Infusions:sodium chloride 0.9%, 125 mL/hr, Last Rate: 125 mL/hr (12/24/22 1402) PRN Meds: acetaminophen albuterol HFA sodium chloride 0.9% dextrose OR dextrose glucagon ondansetron ODT OR ondansetron phenylephrine 0.25%-mineral oil 14%-petrolatum 74.9% prochlorperazine OR prochlorperazine ramelteon senna-docusate sodium chloride 0.9% OBJECTIVE Vitals: Vitals: 12/23/22 2013 12/23/22 2352 12/24/22 0805 12/24/22 1517 BP: 135/72 123/57 163/91 153/66 BP Location: Right arm Right arm Right arm Right arm Patient Position: Sitting Lying Lying Pulse: 73 70 92 67 Resp: 14 12 15 16 Temp: 36.7 ??C (98.1 ??F) 36.5 ??C (97.7 ??F) 36.9 ??C (98.4 ??F) 36.6 ??C (97.9 ??F) TempSrc: Oral Oral Axillary Oral SpO2: 96% 96% 97% 95% Weight: Height: Physical Exam: Physical Exam HENT: Head: Normocephalic. Mouth/Throat: Mouth: Mucous membranes are moist. Eyes: Pupils: Pupils are equal, round, and reactive to light. Cardiovascular: Rate and Rhythm: Normal rate. Pulmonary: Effort: Pulmonary effort is normal. Abdominal: Palpations: Abdomen is soft. Musculoskeletal: General: Normal range of motion. Comments: Patient is very weak to upper and lower extremity Skin: General: Skin is warm. Capillary Refill: Capillary refill takes less than 2 seconds. Neurological: General: No focal deficit present. Mental Status: She is alert. Psychiatric: Mood and Affect: Mood normal. Pertinent Diagnostics: I have reviewed the pertinent laboratory, radiographic, and other diagnosticstudies. Recent Results (from the past 24 hour(s)) POCT glucose Collection Time: 12/23/22 8:16 PM Result Value Ref Range Glucose, POC 224 (H) 70 - 199 mg/dL POCT glucose Collection Time: 12/23/22 11:49 PM Result Value Ref Range Glucose, POC 245 (H) 70 - 199 mg/dL POCT glucose Collection Time: 12/24/22 3:26 AM Result Value Ref Range Glucose, POC 227 (H) 70 - 199 mg/dL POCT glucose Collection Time: 12/24/22 7:25 AM Result Value Ref Range Glucose, POC 214 (H) 70 - 199 mg/dL Basic metabolic panel Collection Time: 12/24/22 10:46 AM Result Value Ref Range Sodium 142 135 - 145 mmol/L Potassium, pl 5.0 (H) 3.3 - 4.9 mmol/L Chloride 108 97 - 110 mmol/L CO2 18 (L) 22 - 32 mmol/L Anion gap 16 (H) 2 - 15 mmol/L BUN 92 (H) 6 - 25 mg/dL Creatinine 5.81 (H) 0.60 - 1.10 mg/dL Glucose 244 (H) 70 - 199 mg/dL Calcium 8.3 (L) 8.5 - 10.3 mg/dL eGFR Collection Time: 12/24/22 10:46 AM Result Value Ref Range eGFR 7 mL/min/1.73 m2 POCT glucose Collection Time: 12/24/22 11:19 AM Result Value Ref Range Glucose, POC 291 (H) 70 - 199 mg/dL POCT glucose Collection Time: 12/24/22 4:45 PM Result Value Ref Range Glucose, POC 279 (H) 70 - 199 mg/dL ASSESSMENT AND PLAN: All conditions are present on admission unless otherwise noted. Acute on chronic kidney disease: Worsening according to records baseline 2.3-2.7 currently creatinine 6.99 BUN 104 GFR 6 stage 5 -nephrology is aware and is currently trying to address this -it is assumed that this is due to diuresis -diuresis has been held at this time and patient is receiving intermittent fluids -creatinine finally plateaued and starting to improve. Foot/toe osteomyelitis: POA -infectious Disease on the case -patient just completed daptomycin and Flagyl on 12/23/2022 -appreciate ID recommendations moving forward -wound care is on the case Urinary tract infection: POA patient's urinalysis on 12/20/2022 noted leukocyte esterase 3+ WBC greater than 50 yeast 4+ -patient currently finishing 2 antibiotics, daptomycin Flagyl per Infectious Disease -will monitor patient's kidney functions as well while giving antibiotic Hypertension: POA -continue with amlodipine, carvedilol -monitor per floor protocol Diabetes mellitus type 2: POA -sliding scale insulin -Accu check a.c. HS -basal insulin, still hyperglycemic will increase Lantus from 5-8 units nightly -consistent carb diet Hand tremor: POA -continue Cogentin -continue to monitor symptoms. Normocytic anemia: POA hemoglobin 8.0 hematocrit 24.9 MCV 93.3 due to iron-deficiency -no interventions needed at this time -will continue monitor -repeat lab in a.m. Generalized weakness: POA -PTOT GERD: POA -pantoprazole DVT prophylaxis -heparin Discharge Disposition: Pending continued improvement in renal function Voice recognition software ([employer]) was used to complete this document. Despite proofreading, supervisor hydrochloric area variances and typographical errors may occur. 12/24/2022 5:19 PM * Jimbo Strauss MD - 12/24/2022 4:41 PM CDT Nephrology Daily Progress [facility]# [id number] #: [id number] Phone#: [phone] #: 1950 Subjective Chief complaint of Interval History: Nonverbal, looks comfortable. Poor p.o. intake. Objective Vitals: 24hr Min/Max: Temp Min: 36.6 ??C (97.9 ??F) Max: 37.1 ??C (98.7 ??F) Pulse Min: 67 Max: 72 BP Min: 118/103 Max: 153/66 Resp Min: 16 Max: 18 SpO2 Min: 95 % Max: 100 % Intake/Output Summary (Last 24 hours) at 12/25/2022 1201 Last data filed at 12/24/2022 1515 Gross per 24 hour Intake -- Output 2200 ml Net -2200 ml Wt Readings from Last 3 Encounters: 12/25/22 67.2 kg (148 lb 2.1 oz) 12/06/22 78.9 kg (173 lb 15.1 oz) 12/05/22 79.3 kg (174 lb 12.8 oz) Temp Av.8 ??C (98.2 ??F) Min: 36.6 ??C (97.9 ??F) Max: 37.1 ??C (98.7 ??F) BP Min: 118/103 Max: 153/66 Pulse Av.3 Min: 67 Max: 72 Resp Av.5 Min: 16 Max: 18 SpO2 Av.5 % Min: 95 % Max: 100 % Most Recent: Vitals: 12/25/22 0753 BP: (!) 118/103 Pulse: 72 Resp: 18 Temp: 37.1 ??C (98.7 ??F) SpO2: 99% I/O last 2 completed shifts: In: - Out: 2200 [Urine:2200] No intake/output data recorded. Current Facility-Administered Medications Medication Dose Route Frequency Last Rate Last Admin acetaminophen (TYLENOL) tablet 650 mg 650 mg oral Q4H PRN albuterol HFA (PROVENTIL HFA,VENTOLIN HFA,PROAIR HFA) 90 mcg/actuation inhaler 2 puff 2 puff inhalation Q4H PRN (RT) [Held by Provider] atorvastatin (LIPITOR) tablet 20 mg 20 mg oral Nightly benztropine (COGENTIN) tablet 1.5 mg 1.5 mg oral Nightly 1.5 mg at 12/24/222101 Carrier Fluids for Secondary Infusion - 0.9% Sodium Chloride 30 mL intravenous PRN dextrose oral liquid liquid 15 g 15 g oral Q15 Min PRN Or dextrose (D10W) 10% bolus 250 mL 250 mL intravenous Q15 Min PRN ferrous sulfate delayed release tablet 65 mg of elemental iron 65 mg of elemental iron oral Daily with breakfast 65 mg of elemental iron at 12/25/22 103 glucagon injection 1 mg 1 mg intramuscular Q30 Min PRN heparin 5,000 unit/mL injection 5,000 Units 5,000 Units subcutaneous Q8H SOL 5,000 Units at 12/25/22 0535 hydrocortisone (ANUSOL-HC) suppository 25 mg 25 mg rectal BID 25 mg at 12/24/222102 insulin glargine (LANTUS, SEMGLEE) 100 unit/mL injection 8 Units 8 Units subcutaneous Nightly 8 Units at 12/24/222100 insulin lispro (HumaLOG, ADMELOG) 100 unit/mL injection 0-5 Units 0-5 Units subcutaneous Q4H SOL 1 Units at 12/25/22 0431 midodrine (PROAMATINE) tablet 10 mg 10 mg oral TID AC 10 mg at 12/24/22 1648 ondansetron ODT (ZOFRAN-ODT) disintegrating tablet 4 mg 4 mg oral Q6H PRN Or ondansetron (ZOFRAN) injection 4 mg 4 mg intravenous Q6H PRN pantoprazole DR (PROTONIX) extended release tablet 40 mg 40 mg oral BID 40 mg at 12/25/22 1036 phenylephrine 0.25%-mineral oil 14%-petrolatum 74.9% ointment rectal QID PRN pregabalin (LYRICA) capsule 75 mg 75 mg oral Nightly 75 mg at 12/24/222101 prochlorperazine (COMPAZINE) tablet 5 mg 5 mg oral Q6H PRN Or prochlorperazine (COMPAZINE) injection 5 mg 5 mg intravenous Q6H PRN ramelteon (ROZEREM) tablet 8 mg 8 mg oral Nightly PRN senna-docusate (PERICOLACE) 8.6-50 mg per tablet 1 tablet 1 tablet oral BID PRN sodium bicarbonate tablet 1,300 mg 1,300 mg oral TID 1,300 mg at 12/25/22 1036 sodium chloride 0.9% flush 0.5-20 mL 0.5-20 mL intra-catheter Q8H SOL 10 mL at 12/25/22 0535 sodium chloride 0.9% flush 0.5-20 mL 0.5-20 mL intra-catheter PRN sodium chloride 0.9% infusion 125 mL/hr intravenous Continuous 125 mL/hr at 12/25/22 0753 125 mL/hrat 12/25/22 0753 Continuous Medications Medication Dose Last Rate sodium chloride 0.9% infusion 125 mL/hr 125 mL/hr (12/25/22 0753) LDA: PICC Single Lumen 11/11/22 Non-tunneled Power Left Brachial;Upper arm (Active) Placement Date/Time: 11/11/22 1310 Placed by External Staff?: Other hospital Catheter Time Out Checklist Completed: Yes Hand Hygiene Performed: Yes Site Prep: Chlorhexidine Site Prep Agent has Completely Dried Before Insertion: Yes All 5 Steril... Number of days: 40 Urethral Catheter Double-lumen;Non-latex (Active) Placement Date/Time: 12/20/22 2200 Inserted by: Salvador Smith RN Catheter Type: Double-lumen;Non-latex Tube Size (Fr.): 16 Fr Catheter Balloon Size: 10 mL Urine Returned: Yes Number of days: 0 Vent settings: Hemodynamic parameters for last 24 hours: Physical Exam: General Appearance: Alert, cooperative, confused not following any commands. Head: Normocephalic, without obvious abnormality, atraumatic Eyes: [...] all four quadrants, non-distended Extremities: Extremities normal, thigh edema. Skin: Skin color, texture, turgor normal, no rashes, lesions or bruising Neurologic: Alert & oriented to person. Moves extremities to painful stimuli. Psychosocial: flat Dialysis Access Exam: Lab/Radiology/Diagnostic Review: Recent Labs Lab Units 12/25/22 1135 12/24/22 1119 12/24/22 1046 12/23/22 0729 12/23/22 0725 12/22/22 1222 12/22/22 0748 12/21/22 1140 12/21/22 0808 SODIUM mmol/L -- -- 142 -- 139 -- 136 -- 139 POTASSIUM PLASMA mmol/L -- -- 5.0* -- 4.9 -- 4.9 -- 4.9 CHLORIDE mmol/L -- -- 108 -- 102 -- 100 -- 102 CO2 mmol/L -- -- 18* -- 16* -- 18* -- 22 BUN SERUM mg/dL -- -- 92* -- 108* -- 104* -- 94* CREATININE mg/dL -- -- 5.81* -- 7.34* -- 6.99* -- 5.43* [id number] mL/min/1.73 m2 -- -- 7 -- 5 -- 6 -- 8 GLUCOSE mg/dL -- -- 244* -- 129 -- 196 -- 150 POC GLUCOSE MONITOR mg/dL 220* < > -- < > -- < > -- < > -- CALCIUM mg/dL -- -- 8.3* -- 7.8* -- 8.0* -- 8.9 ALBUMIN g/dL -- -- -- -- 2.8* -- 2.7* -- 2.8* PHOSPHORUS PLASMA mg/dL -- -- -- -- -- -- 8.4* -- -- < > = values in this interval not displayed. Additional Labs: Recent Labs Lab Units 12/23/22 0725 12/23/22 0010 12/22/22 0805 12/22/22 0748 WBC K/cumm 8.7 9.5 9.5 9.7 9.4 HEMOGLOBIN g/dL 8.0* 8.8* 8.3* 8.4* 8.7* HEMATOCRIT % 24.9* 27.3* 26.4* 26.5* 27.2* PLATELETS K/cumm 284 294 288 283 306 NEUTROS PCT % -- 66.6 65.5 65.4 65.1 LYMPHS PCT % -- 21.3 22.1 22.2 22.4 MONOS PCT % -- 9.0 9.8 10.1 9.9 EOS PCT % -- 2.4 1.9 1.7 2.0 Assessment/Plan 1. chronic kidney disease: Stage IIIB, due to diabetes and hypertension. Creatinine has gone up dueto diuresis. We will hold for now. As off 12/22/2022 creatinine is worse. Will give iv fluids, hold diuretics As off 12/24/2022 creatinine is a bit better. 2. Hypertension: Blood pressures we will control 3. Edema: This is much better compared to the last admission. Due to chronic kidney disease and pulmonary hypertension. As of 12/21/2022 no lower extremity edema. 4. Anemia: Possible GI bleed. Possibly chronic kidney disease related. Possible iron deficiency. 5. Tremors: Possibly early Parkinson's. 6. Metabolic acidosis: possible related to renal failure. Add sodium bicarbonate DICTATION DISCLAIMER: This note is transcribed using the [employer] direct voice recognition system without human menagerie superintendent. In an effort to expedite patient care, this note has not been adjusted for typographical, grammatical, and syntax by a trained medical records custodian. Portions of this note have been copied from the medical record, but edited appropriately to accurately reflect the patient's current clinical state. Jimbo Strauss Office/exchange: [phone] Pager: [phone] * Leslie Sanchez COTA - 12/24/2022 2:48 PM CDT Occupational Therapy NOTE / SESSION TYPE: DAILY PROGRESS / TREATMENT Patient's Name: Sixto Chakraborty Age / Sex: 72 y.o. / female Room: [place] [id number] : 1950 Date of service: 12/24/22 TIME IN: 1448 TIME OUT: 1511 Patient Active Problem List Diagnosis Schizoaffective disorder, bipolar type ([facility]) ([facility]) Diabetic neuropathy (HCC) Type 2 diabetes mellitus with diabetic neuropathy, with long-term current use of insulin ([facility]) ([facility]) Hypertension associated with diabetes (HCC) Amputation of toe of right foot ([facility]) ([facility]) Iron deficiency anemia Gastroesophageal reflux disease Hyperlipidemia associated with type 2 diabetes mellitus (HCC) Dementia (HCC) Schizoaffective disorder, bipolar type ([facility]) ([facility]) 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 2 diabetes mellitus ([facility]) ([facility]) Encounter for Medicare annual wellness exam Late onset Alzheimer's dementia without behavioral disturbance ([facility]) Volume overload Anemia Toe necrosis ([facility]) ([facility]) Physical deconditioning Left leg DVT ([facility]) ([facility]) Pulmonary nodule Retention of urine, unspecified Unspecified osteoarthritis, unspecified site Unsteadiness on feet Weakness Parkinsonism ([facility]) Wheezing Anemia in stage 4 chronic kidney disease ([facility]) Osteomyelitis of great toe of right foot ([facility]) ([facility]) Abnormal urinalysis Cellulitis of great toe of right foot CLEMENTE (acute kidney injury) ([facility]) ([facility]) Acute on chronic diastolic congestive heart failure ([facility]) ([facility]) Bibasilar consolidations Movement disorder Shortness of breath GI bleed Bandemia Past Medical History: Diagnosis Date Arthritis CHF (congestive heart failure) ([facility]) (HCC) Dementia (HCC) Depression Diabetic neuropathy (HCC) Hyperlipidemia Hypertension Movement disorder Osteomyelitis (HCC) Renal disorder Schizophrenia ([facility]) Type 2 diabetes mellitus ([facility]) Past Surgical History: Procedure Laterality Date SECTION Right right foot TOE AMPUTATION Right 01/06/2020 4th toe amp/ foot debridement/ Dr. Anat Pelayo Precautions (including weight-bearing): Fall risk and Bed / chair alarm Subjective: Patient she thought she could cut her food but needed assist with opening her soda Upon arrival patient was eating her lunch in the recliner with the table not close enough to self feed in a normal position. It was too high and too far away. Therapist adjusted the table to increased her ability to self feed. Patient stated that was much better. Therapy Pain: Pre-therapy pain level: 0 /10 [...] of patient at end of session: Yes Cognitive / Perceptual: Was able to answer simple questions Living Skills / Other Activities: Patient was self feeding upon arrival and wanted to finish her lunch. She demonstrated tremors in right hand and needed increased time to stab food and bring it to her mouth with min dropping due to decreased coordination. She demonstrated increased success after bedside table and food tray were re- positioned to increase her independence with self feeding. Caregiver Present: No Education & Training Provided: Role of OT, OT plan of care, and ADL training Assessment: Activity tolerance / response to OT session: GOOD PARTICIPATION, GOOD MOTIVATION, and RECEPTIVE TO EDUCATION / TRAINING Progress towards goals: Please refer to care plan from this date for progress towards individual goals Plan: Therapy Plan: Rehab Potential (Prognosis): good OT Recommendations This Date: OT RECOMMENDATIONS: OT Recommendation: Retirement Facility Flow sheet updated and OT Consultation in Regards to Change in Discharge Recommendations: YES /NO: N/A Additional recommendation comments: Recommend SNF due to: Risk of injury at home, Unable to safely care for self in the home, Skilled therapy needed to address care for self in the home, Skilled therapy needed to address functional deficits, Skilled therapy needed for patient to return to prior level of independence Frequency of therapy:OT Frequency during current admission: 3-5x/wk If this is the last note, consider this the discharge summary MICHEAL Salgado 12/24/22 Cosigned by Cristy Marte OT at 12/26/2022 6:38 AM CDT * Sarahy Liao PTA - 12/24/2022 9:09 AM CDT Physical Therapy PT PROGRESS NOTE PATIENT'S NAME:Sixto Chakraborty :1950 AGE:72 y.o. ROOM:[place] [id number] Past Medical History: Diagnosis Date Arthritis CHF (congestive heart failure) ([facility]) (HCC) Dementia (HCC) Depression Diabetic neuropathy (HCC) Hyperlipidemia Hypertension Movement disorder Osteomyelitis (HCC) Renal disorder Schizophrenia (HCC) Type 2 diabetes mellitus ([facility]) Past Surgical History: Procedure Laterality Date SECTION Right right foot TOE AMPUTATION Right 01/06/2020 4th toe amp/ foot debridement/ Dr. Anat Pelayo Patient Active Problem List Diagnosis Schizoaffective disorder, bipolar type ([facility]) ([facility]) Diabetic neuropathy (HCC) Type 2 diabetes mellitus with diabetic neuropathy, with long-term current use of insulin ([facility]) ([facility]) Hypertension associated with diabetes (HCC) Amputation of toe of right foot ([facility]) ([facility]) Iron deficiency anemia Gastroesophageal reflux disease Hyperlipidemia associated with type 2 diabetes mellitus ([facility]) Dementia ([facility]) Schizoaffective disorder, bipolar type ([facility]) ([facility]) 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 2 diabetes mellitus ([facility]) ([facility]) Encounter for Medicare annual wellness exam Late onset Alzheimer's dementia without behavioral disturbance ([facility]) Volume overload Anemia Toe necrosis ([facility]) ([facility]) Physical deconditioning Left leg DVT ([facility]) ([facility]) Pulmonary nodule Retention of urine, unspecified Unspecified osteoarthritis, unspecified site Unsteadiness on feet Weakness Parkinsonism ([facility]) Wheezing Anemia in stage 4 chronic kidney disease ([facility]) Osteomyelitis of great toe of right foot ([facility]) ([facility]) Abnormal urinalysis Cellulitis of great toe of right foot CLEMENTE (acute kidney injury) ([facility]) ([facility]) Acute on chronic diastolic congestive heart failure ([facility]) ([facility]) Bibasilar consolidations Movement disorder Shortness of breath GI bleed Bandemia TIME IN: 909 TIME OUT: 952 SUBJECTIVE I have a little. Patient is agreeable to participate in therapy. MENTAL STATUS/ORIENTATION: awake, oriented to name and birthdate. Patient knows she is in a hospital but cannot identify specific location. Cannot state or recall month or year at session start or with review at session end. PAIN: Pre-therapy pain level: they numb Pain location: SILVERIO feet Pain intervention: mobility performed Post-therapy pain level/response to intervention: none OBJECTIVE PRECAUTIONS: fall, contact ( MRSA) APPEARANCE/POSTURE: supine, propped toward L per turn calendar, HOB elevated, I.V. intact, bed alarm active. MOBILITY DOCUMENTATION: Bed Mobility/Transfers: supine (HOB elevated) to sitting EOB with extra time and MIN assist Sit <> stand EOB to w/w with MOD assist Sit <> stand recliner to w/w with MIN assist Gait: 3-4 steps from EOB to recliner with w/w and MIN assist. Foot flat, low clearance from floor to complete. TREATMENT: Patient performs seated HEP x 7-10 reps SILVERIO: AP (decreased coordination), LAQ and marching with decreased ROM APPEARANCE/POSTURE (end of session): seated in recliner, chair alarm active / on, call light in reach, I.V. intact EDUCATION:bed mobility , therapeutic exercises , functional transfer training, and safety RESPONSE TO EDUCATION: needs reinforcement ASSESSMENT Activity tolerance/response to P.T.: GOOD Patient is pleasant, eager to get into chair, some confusion. Weak but steady. Barriers to learning: Physical and Cognitive Barriers to discharge: Pain, Limited family support, Cognitive deficit, Decreased sensation, Upper extremity weakness, and Lower extremity weakness Patient continues progressing toward previously set goals which remain appropriate at this time. PLAN PT Discharge Recommendations this date: PT Recommendation/Plan: Inpatient Rehab Facility Patient at high risk for: Falls, Readmission, Injury due to decreased ability to care for self, Injury due to reduced functional status, Injury due to balance deficits, Developing secondary complications: poor health management Recommend Inpatient Rehab/Acute Rehab due to: Ability to actively participate in intensive therapy 3 hours/day, 5 days/week or 900 minutes per week, Not at baseline due to impaired ability to complete ADLs, Impaired ability to complete functional mobility, Likely to return to the community at discharge with support system in place, Requires greater than 25% physical assistance with most mobility tasks, Requires multiple therapy disciplines to address functional deficits PT Recommendation/Plan Comments: Patient is a 72 y/o female presenting with weakness. PLOF, indep with w/w. At eval, patient needs max A for transfers. Recommend intensive PT at an IP Rehab to improve problem list and indep. PT Frequency during current admission: 3-5x/wk Refer to multi-disciplinary care plan section for PT specific goals. If this is the last note, please consider this the discharge summary. Cosigned by Nelly Hughes PT at 12/24/2022 3:22 PM CDT * Natacha Vargas RPh - 12/23/2022 3:25 PM CDT IV to Enteral Note Sixto Chakraborty meets P&T-approved criteria for IV to PO therapy conversion. Converted existing order for Pantoprazole to PO per protocol. Natacha Vargas RPh NON-ANTIMICROBIALS Inclusion Criteria All must be met for conversion Patient has received > 24 hours of an eligible IV medication Patient has an intact and functioning gastrointestinal tract Able to tolerate an oral diet OR Able to tolerate enteral feedings OR Patient is NPO except for medications Patient is tolerating other enteral (PO, PEG, or NG) medications for > 24 hours. NON-ANTIMICROBIALS Exclusion Criteria If any are met, do not convert. Age < 14 years OR Age 14 years-18 years and < 40 kg NPO and not receiving enteral medications for any reason Nausea, use of antiemetics, vomiting or severe diarrhea in the past 24 hours NG tube with continuous suction Receiving TPN Vasopressor dependent or hemodynamically unstable Active GI bleed AND on IV proton pump inhibitor (may include when proton pump inhibitor is given enterally) Documented ileus or GI obstruction Malabsorption syndrome, partial or total removal of stomach, short bowel syndrome, severe ostomy output, esophageal fistula. Major upper GI surgery during current admission (e.g. gastrectomy, duodenectomy, pancreatico-duodenectomy) Patients with mucositis SPECIFIC EXCLUSIONS Metoclopramide for oncology patients with chemotherapy-induced nausea and vomiting or receiving highly emetogenic chemotherapy regimens per NCCN guidelines. (Available at https://www.empr.com/clinical -charts/vxmzzyfrgj-edpaaylzg-wg-antineoplastic-agents/article/608085/) Metoclopramide for severe/refractory gastroparesis (defined as refractory vomiting, pronounced dehydration with electrolyte imbalance.) Thiamine should not be converted if patient has received less than 5 days for Wernicke's encephalopathy. Levothyroxine therapy and unable to separate from multivalent cations. Levothyroxine therapy and receiving continuous enteral feedings. Levetiracetam IV to PO conversion should only occur outside of the ICU setting. ANTIMICROBIALS Inclusion Criteria All must be met for conversion Patient has received > 24 hours of an eligible IV antimicrobial Patient has an intact and functioning gastrointestinal tract Able to tolerate an oral diet OR Able to tolerate enteral feedings OR Patient is NPO except for medications Patient is tolerating other enteral (PO, PEG, or NG) medications for > 24 hours. Patient is clinically improving as determined by all of the following factors: Afebrile (temperature < 38??C or 100.4?? F) for > 24 hours WBC count is normal or improving If WBC elevation is attributed to steroid use in a patient receiving an eligible antimicrobial for an acute exacerbation of COPD, other parameters of improvement may include: increasing oxygen saturation, decreasing oxygen requirement, or subjective improvement documented in the medical record. ANTIMICROBIALS Exclusion Criteria If any are met, do not convert. Age < 14 years OR Age 14 years-18 years and < 40 kg NPO and not receiving enteral medications for any reason Nausea, use of antiemetics, vomiting or severe diarrhea in the past 24 hours NG tube with continuous suction Receiving TPN Vasopressor dependent or hemodynamically unstable Active GI bleed AND on IV proton pump inhibitor (may include when proton pump inhibitor is given enterally) Documented ileus or GI obstruction Malabsorption syndrome, partial or total removal of stomach, short bowel syndrome, severe ostomy output, esophageal fistula. Major upper GI surgery during current admission (e.g. gastrectomy, duodenectomy, pancreatico-duodenectomy) Patients with mucositis Serious or life-threatening infection such as [employer] infection, endocarditis, osteomyelitis, septic arthritis, orbital cellulitis, endophthalmitis, bacteremia, fungemia. (Exception: rifampin IV to enteral is allowed) Infectious Diseases provider specifies to continue IV therapy Immunocompromised status necessitating IV therapy of antimicrobial (i.e. WBC < 4000 cells/mm3 orANC < 1000 cells/mm3) SPECIFIC EXCLUSIONS Fluoroquinolone or tetracycline therapy and unable to separate from multivalent cations. Fluoroquinolone or tetracycline therapy and receiving continuous enteral feedings. * Mary Faith NP - 12/23/2022 1:28 PM CDT [facility] Hospitalist Service Progress Note Patient Name: Sixto Chakraborty Patient : 1950 Age/Sex: 72 y.o. female Room/Bed: CH619/BH22939 Admission Date/Time: 12/20/2022 5:31 AM Date: 12/23/2022 Time: 1:29 PM Chief complaint: POA hand shakes History of Present Illness and Hospital Course: This is a 72-year-old black female was admitted secondary to fatigue and weakness. In the emergencydepartment patient was found to have what appeared to be a GI bleed. GI was consulted and patient was admitted Patient's hemoglobin dropped a small amount on 12/21. Transfusion was not needed Patient has existing osteomyelitis of the great toe. She is on daptomycin and Flagyl until Patient's kidney function is acutely worsened this hospitalization compared to previous. Is possible as the secondary to medications At baseline patient has stage IIIB chronic kidney disease. We are holding diuresis SUBJECTIVE Interval History: 12/23/2022 The patient is seen and examined at bedside. Patient is awake alert oriented eating breakfast, has slight hand tremor other than this patient states she is feeling okay. Daughter was reaching out to providers yesterday about the patient's kidney function and antibiotic therapy. Waiting on labs at this time labs are running behind patient's creatinine has been increasing and now 6.99 nephrology is on the case and is aware and spoke with him today on 12/23/2022 intermittently giving patient IV fluids I spoke with nursing staff at bedside. We discussed the case in detail. All of their concerns were addressed. Review of Systems: Constitutional: denies weight loss, weight gain Head: denies headache , dizziness, lightheadedness, loc Nose/Throat: denies dysphagia, soreness, rhinorrhea Cardiovascular: denies chest pain, palpitations, syncope Resp: denies, shortness of breath, cough,hemoptysis Peripheral: denies weakness , numbness, tingling Gi: denies nausea , vomiting, diarrhea Gu: denies dysuria, hematuria Musculoskeletal: weakness, joint pain, positive hand tremor Neuro: denies problems with gait, dizziness, seizures. Endocrine: denies diabetes, thyroid. Allergies: No Known Allergies Current Medication List: Scheduled Meds:amLODIPine, 10 mg, oral, Nightly [Held by Provider] atorvastatin, 20 mg, oral, Nightly benztropine, 1.5 mg, oral, Nightly carvediloL, 6.25 mg, oral, BID with meals (bkfst, dinner) DAPTOmycin, 350 mg, intravenous, Q48H ferrous sulfate, 65 mg of elemental iron, oral, Daily with breakfast heparin, 5,000 Units, subcutaneous, Q8H SOL hydrocortisone, 25 mg, rectal, BID insulin glargine, 5 Units, subcutaneous, Nightly insulin lispro, 0-5 Units, subcutaneous, Q4H SOL metroNIDAZOLE, 500 mg, oral, TID pantoprazole, 40 mg, intravenous, BID pregabalin, 75 mg, oral, Nightly sodium chloride 0.9%, 0.5-20 mL, intra-catheter, Q8H SOL Continuous Infusions: PRN Meds: acetaminophen albuterol HFA sodium chloride 0.9% dextrose OR dextrose glucagon ondansetron ODT OR ondansetron phenylephrine 0.25%-mineral oil 14%-petrolatum 74.9% prochlorperazine OR prochlorperazine ramelteon senna-docusate sodium chloride 0.9% OBJECTIVE Vitals: Vitals: 12/22/22 1939 12/23/22 0022 12/23/22 0821 12/23/22 1138 BP: 123/57 117/53 109/49 114/53 BP Location: Right arm Right arm Right arm Right arm Patient Position: Sitting Lying Lying Lying Pulse: 66 64 64 65 Resp: 14 14 16 Temp: 36.7 ??C (98.1 ??F) 36.4 ??C (97.5 ??F) 36.6 ??C (97.9 ??F) TempSrc: Oral Oral Oral SpO2: 97% 97% 96% 94% Weight: Height: Physical Exam: Physical Exam HENT: Head: Normocephalic. Mouth/Throat: Mouth: Mucous membranes are moist. Eyes: Pupils: Pupils are equal, round, and reactive to light. Cardiovascular: Rate and Rhythm: Normal rate. Pulmonary: Effort: Pulmonary effort is normal. Abdominal: Palpations: Abdomen is soft. Musculoskeletal: General: Normal range of motion. Comments: Patient is very weak to upper and lower extremity Skin: General: Skin is warm. Capillary Refill: Capillary refill takes less than 2 seconds. Neurological: General: No focal deficit present. Mental Status: She is alert. Psychiatric: Mood and Affect: Mood normal. Pertinent Diagnostics: I have reviewed the pertinent laboratory, radiographic, and other diagnosticstudies. Recent Results (from the past 24 hour(s)) POCT glucose Collection Time: 12/22/22 3:54 PM Result Value Ref Range Glucose, POC 214 (H) 70 - 199 mg/dL POCT glucose Collection Time: 12/22/22 8:00 PM Result Value Ref Range Glucose, POC 198 70 - 199 mg/dL CBC with auto differential Collection Time: 12/23/22 12:10 AM Result Value Ref Range WBC 9.5 3.8 - 9.9 K/cumm Hgb 8.8 (L) 11.9 - 15.5 g/dL Hct 27.3 (L) 35.6 - 45.5 % Plt 294 150 - 400 K/cumm MPV 11.4 9.1 - 12.3 fL RBC 2.93 (L) 3.90 - 5.20 M/cumm MCV 93.2 81.3 - 96.4 fL MCH 30.0 27.1 - 33.3 pg MCHC 32.2 (L) 32.3 - 35.7 g/dL RDW CV 15.7 (H) 11.1 - 14.9 % RDW SD 53.4 (H) 35.7 - 48.1 fL NRBC abs 0.00 0.00 - 0.01 K/cumm Differential, auto Collection Time: 12/23/22 12:10 AM Result Value Ref Range Neutrophil abs 6.3 1.7 - 6.5 K/cumm Imm gran abs 0.0 0.0 - 0.1 K/cumm Lymphocyte abs 2.0 0.8 - 3.3 K/cumm Monocyte abs 0.9 (H) 0.2 - 0.8 K/cumm Eosinophil abs 0.2 0.0 - 0.5 K/cumm Basophil abs 0.0 0.0 - 0.1 K/cumm Neutrophil pct 66.6 % Imm gran pct 0.3 % Lymphocyte pct 21.3 % Monocyte pct 9.0 % Eosinophil pct 2.4 % Basophil pct 0.4 % POCT glucose Collection Time: 12/23/22 12:30 AM Result Value Ref Range Glucose, POC 187 70 - 199 mg/dL POCT glucose Collection Time: 12/23/22 4:22 AM Result Value Ref Range Glucose, POC 164 70 - 199 mg/dL CBC without differential Collection Time: 12/23/22 7:25 AM Result Value Ref Range WBC 8.7 3.8 - 9.9 K/cumm Hgb 8.0 (L) 11.9 - 15.5 g/dL Hct 24.9 (L) 35.6 - 45.5 % Plt 284 150 - 400 K/cumm MPV 11.1 9.1 - 12.3 fL RBC 2.67 (L) 3.90 - 5.20 M/cumm MCV 93.3 81.3 - 96.4 fL MCH 30.0 27.1 - 33.3 pg MCHC 32.1 (L) 32.3 - 35.7 g/dL RDW CV 15.7 (H) 11.1 - 14.9 % RDW SD 53.9 (H) 35.7 - 48.1 fL NRBC abs 0.00 0.00 - 0.01 K/cumm POCT glucose Collection Time: 12/23/22 7:29 AM Result Value Ref Range Glucose, POC 132 70 - 199 mg/dL POCT glucose Collection Time: 12/23/22 12:20 PM Result Value Ref Range Glucose, POC 170 70 - 199 mg/dL ASSESSMENT AND PLAN: All conditions are present on admission unless otherwise noted. Acute on chronic kidney disease: Worsening according to records baseline 2.3-2.7 currently creatinine 6.99 BUN 104 GFR 6 stage 5 -nephrology is aware and is currently trying to address this -it is assumed that this is due to diuresis -diuresis has been held at this time and patient is receiving intermittent fluids -lab will be repeated today to see if this intermittent fluids has helped improve the patient's kidney function Foot/toe osteomyelitis: POA -infectious Disease on the case -patient just completed daptomycin and Flagyl on 12/23/2022 -appreciate ID recommendations moving forward -wound care is on the case Urinary tract infection: POA patient's urinalysis on 12/20/2022 noted leukocyte esterase 3+ WBC greater than 50 yeast 4+ -patient currently finishing 2 antibiotics, daptomycin Flagyl per Infectious Disease -will monitor patient's kidney functions as well while giving antibiotic Hypertension: POA -continue with amlodipine, carvedilol -monitor per floor protocol Diabetes mellitus type 2: POA -sliding scale insulin -Accu check a.c. HS -basal insulin -consistent carb diet Hand tremor: POA -continue Cogentin -continue to monitor symptoms. Normocytic anemia: POA hemoglobin 8.0 hematocrit 24.9 MCV 93.3 due to iron-deficiency -no interventions needed at this time -will continue monitor -repeat lab in a.m. Generalized weakness: POA -PTOT GERD: POA -pantoprazole DVT prophylaxis -heparin Discharge Disposition: Patient's kidney function is worsening will not be discharging yet Voice recognition software ([email or web address]) was used to complete this document. Despite proofreading, supervisor hydrochloric area variances and typographical errors may occur. MARY VANEGAS-WASHINGTON GALVAN,DNP Hospitalist in the [facility] Medical [facility] 12/23/2022 1:29 PM * Jimbo Strauss MD - 12/23/2022 12:13 PM CDT Nephrology Daily Progress [facility]# [id number] #: [id number] Phone#: [phone] #: 1950 Subjective Chief complaint of Interval History: Nonverbal, looks comfortable. Poor p.o. intake. Objective Vitals: 24hr Min/Max: Temp Min: 36.4 ??C (97.5 ??F) Max: 36.9 ??C (98.4 ??F) Pulse Min: 69 Max: 92 BP Min: 123/57 Max: 163/91 Resp Min: 12 Max: 16 SpO2 Min: 96 % Max: 98 % Intake/Output Summary (Last 24 hours) at 12/24/2022 1213 Last data filed at 12/24/2022 0645 Gross per 24 hour Intake 240 ml Output 4450 ml Net -4210 ml Wt Readings from Last 3 Encounters: 12/20/22 67.5 kg (148 lb 13 oz) 12/06/22 78.9 kg (173 lb 15.1 oz) 12/05/22 79.3 kg (174 lb 12.8 oz) Temp Av.6 ??C (97.9 ??F) Min: 36.4 ??C (97.5 ??F) Max: 36.9 ??C (98.4 ??F) BP Min: 123/57 Max: 163/91 Pulse Av Min: 69 Max: 92 Resp Av.3 Min: 12 Max: 16 SpO2 Av.8 % Min: 96 % Max: 98 % Most Recent: Vitals: 12/24/22 08 BP: 163/91 Pulse: 92 Resp: 15 Temp: 36.9 ??C (98.4 ??F) SpO2: 97% I/O last 2 completed shifts: In: 480 [P.O.:480] Out: 4450 [Urine:4450] No intake/output data recorded. Current Facility-Administered Medications Medication Dose Route Frequency Last Rate Last Admin acetaminophen (TYLENOL) tablet 650 mg 650 mg oral Q4H PRN albuterol HFA (PROVENTIL HFA,VENTOLIN HFA,PROAIR HFA) 90 mcg/actuation inhaler 2 puff 2 puff inhalation Q4H PRN (RT) [Held by Provider] atorvastatin (LIPITOR) tablet 20 mg 20 mg oral Nightly benztropine (COGENTIN) tablet 1.5 mg 1.5 mg oral Nightly 1.5 mg at 12/23/222117 Carrier Fluids for Secondary Infusion - 0.9% Sodium Chloride 30 mL intravenous PRN dextrose oral liquid liquid 15 g 15 g oral Q15 Min PRN Or dextrose (D10W) 10% bolus 250 mL 250 mL intravenous Q15 Min PRN ferrous sulfate delayed release tablet 65 mg of elemental iron 65 mg of elemental iron oral Daily with breakfast 65 mg of elemental iron at 12/24/22 0802 glucagon injection 1 mg 1 mg intramuscular Q30 Min PRN heparin 5,000 unit/mL injection 5,000 Units 5,000 Units subcutaneous Q8H SOL 5,000 Units at 12/24/22 06 hydrocortisone (ANUSOL-HC) suppository 25 mg 25 mg rectal BID 25 mg at 12/23/222117 insulin glargine (LANTUS, SEMGLEE) 100 unit/mL injection 5 Units 5 Units subcutaneous Nightly 5 Units at 12/23/222118 insulin lispro (HumaLOG, ADMELOG) 100 unit/mL injection 0-5 Units 0-5 Units subcutaneous Q4H SOL 3 Units at 12/24/22 1138 midodrine (PROAMATINE) tablet 10 mg 10 mg oral TID AC 10 mg at 12/24/22 1116 ondansetron ODT (ZOFRAN-ODT) disintegrating tablet 4 mg 4 mg oral Q6H PRN Or ondansetron (ZOFRAN) injection 4 mg 4 mg intravenous Q6H PRN pantoprazole DR (PROTONIX) extended release tablet 40 mg 40 mg oral BID 40 mg at 12/24/22 0802 phenylephrine 0.25%-mineral oil 14%-petrolatum 74.9% ointment rectal QID PRN pregabalin (LYRICA) capsule 75 mg 75 mg oral Nightly 75 mg at 12/23/222117 prochlorperazine (COMPAZINE) tablet 5 mg 5 mg oral Q6H PRN Or prochlorperazine (COMPAZINE) injection 5 mg 5 mg intravenous Q6H PRN ramelteon (ROZEREM) tablet 8 mg 8 mg oral Nightly PRN senna-docusate (PERICOLACE) 8.6-50 mg per tablet 1 tablet 1 tablet oral BID PRN sodium chloride 0.9% flush 0.5-20 mL 0.5-20 mL intra-catheter Q8H SOL 10 mL at 12/24/22 0608 sodium chloride 0.9% flush 0.5-20 mL 0.5-20 mL intra-catheter PRN sodium chloride 0.9% infusion 125 mL/hr intravenous Continuous 125 mL/hr at 12/24/22 0433 125 mL/hrat 12/24/22 043 Continuous Medications Medication Dose Last Rate sodium chloride 0.9% infusion 125 mL/hr 125 mL/hr (12/24/22432) LDA: PICC Single Lumen 11/11/22 Non-tunneled Power Left Brachial;Upper arm (Active) Placement Date/Time: 11/11/22 1310 Placed by External Staff?: Other hospital Catheter Time Out Checklist Completed: Yes Hand Hygiene Performed: Yes Site Prep: Chlorhexidine Site Prep Agent has Completely Dried Before Insertion: Yes All 5 Steril... Number of days: 40 Urethral Catheter Double-lumen;Non-latex (Active) Placement Date/Time: 12/20/222199 Inserted by: Salvador Smith RN Catheter Type: Double-lumen;Non-latex Tube Size (Fr.): 16 Fr Catheter Balloon Size: 10 mL Urine Returned: Yes Number of days: 0 Vent settings: Hemodynamic parameters for last 24 hours: Physical Exam: General Appearance: Alert, cooperative, confused not following any commands. Head: Normocephalic, without obvious abnormality, atraumatic Eyes: [...] four quadrants, non-distended Extremities: Extremities normal, no edema. Skin: Skin color, texture, turgor normal, no rashes, lesions or bruising Neurologic: Alert & oriented to person. Moves extremities to painful stimuli. Psychosocial: flat Dialysis Access Exam: Lab/Radiology/Diagnostic Review: Recent Labs Lab Units 12/24/22 1119 12/23/22 0729 12/23/22 0725 12/22/22 1222 12/22/22 0748 12/21/22 1140 12/21/22 0808 12/18/22 0749 12/18/22 0551 SODIUM mmol/L -- -- 139 -- 136 -- 139 -- 140 POTASSIUM PLASMA mmol/L -- -- 4.9 -- 4.9 -- 4.9 -- 4.1 CHLORIDE mmol/L -- -- 102 -- 100 -- 102 -- 104 CO2 mmol/L -- -- 16* -- 18* -- 22 -- 21* BUN SERUM mg/dL -- -- 108* -- 104* -- 94* -- 61* CREATININE mg/dL -- -- 7.34* -- 6.99* -- 5.43* -- 2.37* [id number] mL/min/1.73 m2 -- -- 5 -- 6 -- 8 -- 21 GLUCOSE mg/dL -- -- 129 -- 196 -- 150 -- 152 POC GLUCOSE MONITOR mg/dL 291* < > -- < > -- < > -- < > -- CALCIUM mg/dL -- -- 7.8* -- 8.0* -- 8.9 -- 9.5 ALBUMIN g/dL -- -- 2.8* -- 2.7* -- 2.8* -- 2.5* PHOSPHORUS PLASMA mg/dL -- -- -- -- 8.4* -- -- -- 4.9* < > = values in this interval not displayed. Additional Labs: Recent Labs Lab Units 12/23/22 0725 12/23/22 0010 12/22/22 0805 12/22/22 0748 WBC K/cumm 8.7 9.5 9.5 9.7 9.4 HEMOGLOBIN g/dL 8.0* 8.8* 8.3* 8.4* 8.7* HEMATOCRIT % 24.9* 27.3* 26.4* 26.5* 27.2* PLATELETS K/cumm 284 294 288 283 306 NEUTROS PCT % -- 66.6 65.5 65.4 65.1 LYMPHS PCT % -- 21.3 22.1 22.2 22.4 MONOS PCT % -- 9.0 9.8 10.1 9.9 EOS PCT % -- 2.4 1.9 1.7 2.0 Assessment/Plan 1. chronic kidney disease: Stage IIIB, due to diabetes and hypertension. Creatinine has gone up dueto diuresis. We will hold for now. As off 12/22/2022 creatinine is worse. Will give iv fluids, hold diuretics 2. Hypertension: Blood pressures we will control 3. Edema: This is much better compared to the last admission. Due to chronic kidney disease and pulmonary hypertension. As of 12/21/2022 no lower extremity edema. 4. Anemia: Possible GI bleed. Possibly chronic kidney disease related. Possible iron deficiency. 5. Tremors: Possibly early Parkinson's. 6. Metabolic acidosis: possible related to renal failure. Add sodium bicarbonate DICTATION DISCLAIMER: This note is transcribed using the [employer] direct voice recognition system without human menagerie superintendent. In an effort to expedite patient care, this note has not been adjusted for typographical, grammatical, and syntax by a trained medical records custodian. Portions of this note have been copied from the medical record, but edited appropriately to accurately reflect the patient's current clinical state. Jimbo Strauss Office/exchange: [phone] Pager: [phone] * Terrance Reese NP - 12/23/2022 10:46 AM CDT Images from the original note were not included. Infectious Disease Progress Note Sixto Chakraborty Admit Date: 12/20/2022 5:31 AM 12/23/2022 Hospital Day: 4 Requesting provider: Edmond Lara MD Reason for Consultation: osteomyelitis, UTI Subjective: Afebrile. No leukocytosis. On room air. Asleep.Joy intact. ROS: UTO ROS, asleep Anti-infectives (From admission, onward) Start Dose/Rate Route Frequency Ordered Stop 12/20/22 0900 DAPTOmycin (CUBICIN) 50 mg/mL sodium chloride 0.9% 350 mg 350 mg 210 mL/hr over 2 Minutes intravenous Every 48 hours 12/20/22 0554 12/26/22 0859 12/20/22 0900 metroNIDAZOLE (FLAGYL) tablet 500 mg 500 mg oral 3 times daily 12/20/22 0554 12/24/22 0859 MEDICATIONS FOR CURRENT ENCOUNTER: Current Facility-Administered Medications Medication Dose Route Frequency Provider Last Rate Last Admin acetaminophen (TYLENOL) tablet 650 mg 650 mg oral Q4H PRN Edmond Lara MD albuterol HFA (PROVENTIL HFA,VENTOLIN HFA,PROAIR HFA) 90 mcg/actuation inhaler 2 puff 2 puff inhalation Q4H PRN (RT) Edmond Lara MD amLODIPine (NORVASC) tablet 10 mg 10 mg oral Nightly Edmond Lara MD 10 mg at 12/22/222153 [Held by Provider] atorvastatin (LIPITOR) tablet 20 mg 20 mg oral Nightly Edmond Lara MD benztropine (COGENTIN) tablet 1.5 mg 1.5 mg oral Nightly Celsa Pedraza NP 1.5 mg at 12/22/22 2152 Carrier Fluids for Secondary Infusion - 0.9% Sodium Chloride 30 mL intravenous PRN Celsa Pedraza NP carvediloL (COREG) tablet 6.25 mg 6.25 mg oral BID with meals (bkfst, dinner) Edmond Lara MD6.25 mg at 12/22/22 1712 DAPTOmycin (CUBICIN) 50 mg/mL sodium chloride 0.9% 350 mg 350 mg intravenous Q48H Edmond Lara MD 350 mg at 12/22/22 0858 dextrose oral liquid liquid 15 g 15 g oral Q15 Min PRN Celsa Pedraza NP Or dextrose (D10W) 10% bolus 250 mL 250 mL intravenous Q15 Min PRN Celsa Pedraza NP ferrous sulfate delayed release tablet 65 mg of elemental iron 65 mg of elemental iron oral Daily with breakfast Edmond Lara MD 65 mg of elemental iron at 12/23/22 0912 glucagon injection 1 mg 1 mg intramuscular Q30 Min PRN Celsa Pedraza NP heparin 5,000 unit/mL injection 5,000 Units 5,000 Units subcutaneous Q8H [facility] Edmond Lara MD 5,000 Units at 12/23/22 0539 hydrocortisone (ANUSOL-HC) suppository 25 mg 25 mg rectal BID Kim Looney MD 25 mg at 12/22/22 2154 insulin glargine (LANTUS, SEMGLEE) 100 unit/mL injection 5 Units 5 Units subcutaneous Nightly Celsa Pedraza NP 5 Units at 12/22/22 2151 insulin lispro (HumaLOG, ADMELOG) 100 unit/mL injection 0-5 Units 0-5 Units subcutaneous Q4H [facility] Celsa Pedraza NP 1 Units at 12/23/22 0539 metroNIDAZOLE (FLAGYL) tablet 500 mg 500 mg oral TID Edmond Lara MD 500 mg at 12/23/22 0912 ondansetron ODT (ZOFRAN-ODT) disintegrating tablet 4 mg 4 mg oral Q6H PRN Edmond Lara MD Or ondansetron (ZOFRAN) injection 4 mg 4 mg intravenous Q6H PRN Edmond Lara MD pantoprazole (PROTONIX) 4 mg/mL injection 40 mg 40 mg intravenous BID Celsa Pedraza NP 40mg at 12/23/22 0913 phenylephrine 0.25%-mineral oil 14%-petrolatum 74.9% ointment rectal QID PRN Kim Looney MD pregabalin (LYRICA) capsule 75 mg 75 mg oral Nightly Edmond Lara MD 75 mg at 12/22/22 2153 prochlorperazine (COMPAZINE) tablet 5 mg 5 mg oral Q6H PRN Celsa Pedraza NP Or prochlorperazine (COMPAZINE) injection 5 mg 5 mg intravenous Q6H PRN Celsa Pedraza NP ramelteon (ROZEREM) tablet 8 mg 8 mg oral Nightly PRN Edmond Lara MD senna-docusate (PERICOLACE) 8.6-50 mg per tablet 1 tablet 1 tablet oral BID PRN Edmond Lara MD sodium chloride 0.9% flush 0.5-20 mL 0.5-20 mL intra-catheter Q8H SOL Celsa Pedraza NP 10mL at 12/23/22 0537 sodium chloride 0.9% flush 0.5-20 mL 0.5-20 mL intra-catheter PRN Celsa Pedraza NP Objective: Vitals: 12/22/22 1500 12/22/22 1939 12/23/22 0022 12/23/22 0821 BP: 124/64 123/57 117/53 109/49 BP Location: Right arm Right arm Right arm Right arm Patient Position: Lying Sitting Lying Lying Pulse: 65 66 64 64 Resp: 16 14 14 16 Temp: 36.3 ??C (97.4 ??F) 36.7 ??C (98.1 ??F) 36.4 ??C (97.5 ??F) 36.6 ??C (97.9 ??F) TempSrc: Oral Oral Oral Oral SpO2: 98% 97% 97% 96% Weight: Height: Temp (24hrs), Av.5 ??C (97.7 ??F), Min:36.3 ??C (97.4 ??F), Max:36.7 ??C (98.1 ??F) Height: 157.5 cm (5' 2 ) Weight: 67.5 kg (148 lb 13 oz) No intake or output data in the 24 hours ending 12/23/22 1046 Exam: General: no acute distress HEENT: dry mucus membranes Heart: RRR, no murmurs Lungs: clear to ausculation bilaterally, no wheezes or crackles Abdomen: soft, non-tender, non-distended, + bowel sounds Extremities: no LE edema; R great toe edema with ulcer Skin: no rash Neuro: sleeping, briefly woke to voice and then went back to sleep [facility] 12/08 Lab: Reviewed. Recent Labs Lab Units 12/23/22 0729 12/23/22 0422 12/23/22 0030 12/22/22 1222 12/22/22 0748 12/21/22 1140 12/21/22 0808 12/18/22 0749 12/18/22 0551 SODIUM mmol/L -- -- -- -- 136 -- 139 -- 140 POTASSIUM PLASMA mmol/L -- -- -- -- 4.9 -- 4.9 -- 4.1 CHLORIDE mmol/L -- -- -- -- 100 -- 102 -- 104 CO2 mmol/L -- -- -- -- 18* -- 22 -- 21* ANIONGAP mmol/L -- -- -- -- 18* -- 15 -- 15 GLUCOSE mg/dL -- -- -- -- 196 -- 150 -- 152 POC GLUCOSE MONITOR mg/dL 132 164 187 < > -- < > -- < > -- BUN SERUM mg/dL -- -- -- -- 104* -- 94* -- 61* CREATININE mg/dL -- -- -- -- 6.99* -- 5.43* -- 2.37* CALCIUM mg/dL -- -- -- -- 8.0* -- 8.9 -- 9.5 ALBUMIN g/dL -- -- -- -- 2.7* -- 2.8* -- 2.5* ALK PHOS Units/L -- -- -- -- 169* -- 109 -- -- ALT Units/L -- -- -- -- 14 -- 11 -- -- AST Units/L -- -- -- -- 22 -- 18 -- -- BILIRUBIN TOTAL mg/dL -- -- -- -- <0.2 -- <0.2 -- -- < > = values in this interval not displayed. Recent Labs Lab Units 12/23/22 0725 12/23/22 0010 12/22/22 0805 WBC K/cumm 8.7 9.5 9.5 9.7 HEMOGLOBIN g/dL 8.0* 8.8* 8.3* 8.4* HEMATOCRIT % 24.9* 27.3* 26.4* 26.5* PLATELETS K/cumm 284 294 288 283 [facility] - [phone] 12/19 urine cx (from [facility]); ngtd 12/16 CK 180 12/20 urine cx:insig growth 12/20 blood cx: ngtd Assessment: 72 y.o. femalewith past medical history of CHF, DM (A1C 7.1 on 11/30), arthritis, dementia, schizophrenia, CKD, neuropathy, HLD, HTN and depression, presented to [facility] from [facility] as transfer for GI eval. R great toe osteomyelitis, currently on dapto/Flagyl until 12/23 Possible UTI GI bleed Acute on CKD DM with neuropathy Plan: -cont IV ceftriaxone for possible UTI -cont IV dapto and Flagyl until 12/23 today -Blood cx ngtd. Urine cx insig growth -We called [facility] and urine cx was sent out and may take at least 1-2 days to result; will follow up -GI consulted -Nephrology consulted -Follow CBC, CMP and temps -Supportive care Terrance Reese NP [facility] [phone] For weekend coverage: [employer] [phone] Cosigned by En Chaudhary MD at 03/01/2023 11:09 AM CDT * Tim Castelan MSW - 12/23/2022 9:02 AM CDT 12/23/22 0857 Type Readmission </= 30 Days? Yes High Utilizer >/= 4 Hospitalizations in 12 Months? Yes Record Review of Prior Admission Was this Readmission Planned? No Disposition at Prior Admit D/C Home with HH Did HH Visit Occur? No Did you refuse HH Service? No Functional Status at Index D/C Bed to chair Cognitive Status at Index D/C Confused/disoriented Is Patient ACO No Patient Interview Did Patient have assigned PCP on Discharge? Yes Number of Days from Index D/C 1-3 Who Provided the Information Family In Patient's own words, what led to return to Hospital discahrged too soon UTI and GI bleed per pt's daughter Was Patient Discharged to Home Yes * Jimbo Strauss MD - 12/22/2022 3:18 PM CDT Nephrology Daily Progress [facility]# [id number] SS#: [id number] Phone#: [phone] #: [id number] Subjective Chief complaint of Interval History: Nonverbal, looks comfortable. Poor p.o. intake. Objective Vitals: 24hr Min/Max: Temp Min: 36.3 ??C (97.4 ??F) Max: 37.2 ??C (98.9 ??F) Pulse Min: 65 Max: 75 BP Min: 124/64 Max: 136/63 Resp Min: 16 Max: 18 SpO2 Min: 94 % Max: 98 % No intake or output data in the 24 hours ending 12/22/22 1518 Wt Readings from Last 3 Encounters: 12/20/22 67.5 kg (148 lb 13 oz) 12/06/22 78.9 kg (173 lb 15.1 oz) 12/05/22 79.3 kg (174 lb 12.8 oz) Temp Av.8 ??C (98.2 ??F) Min: 36.3 ??C (97.4 ??F) Max: 37.2 ??C (98.9 ??F) BP Min: 124/64 Max: 136/63 Pulse Av.2 Min: 65 Max: 75 Resp Av Min: 16 Max: 18 SpO2 Av.5 % Min: 94 % Max: 98 % Most Recent: Vitals: 12/22/22 1500 BP: 124/64 Pulse: 65 Resp: 16 Temp: 36.3 ??C (97.4 ??F) SpO2: 98% I/O last 2 completed shifts: In: - Out: 110 [Urine:110] No intake/output data recorded. Current Facility-Administered Medications Medication Dose Route Frequency Last Rate Last Admin acetaminophen (TYLENOL) tablet 650 mg 650 mg oral Q4H PRN albuterol HFA (PROVENTIL HFA,VENTOLIN HFA,PROAIR HFA) 90 mcg/actuation inhaler 2 puff 2 puff inhalation Q4H PRN (RT) amLODIPine (NORVASC) tablet 10 mg 10 mg oral Nightly 10 mg at 12/21/222230 [Held by Provider] atorvastatin (LIPITOR) tablet 20 mg 20 mg oral Nightly benztropine (COGENTIN) tablet 1.5 mg 1.5 mg oral Nightly 1.5 mg at 12/21/222232 Carrier Fluids for Secondary Infusion - 0.9% Sodium Chloride 30 mL intravenous PRN carvediloL (COREG) tablet 6.25 mg 6.25 mg oral BID with meals (bkfst, dinner) 6.25 mg at 12/22/22 0858 DAPTOmycin (CUBICIN) 50 mg/mL sodium chloride 0.9% 350 mg 350 mg intravenous Q48H 350 mg at 12/22/22 0858 dextrose oral liquid liquid 15 g 15 g oral Q15 Min PRN Or dextrose (D10W) 10% bolus 250 mL 250 mL intravenous Q15 Min PRN ferrous sulfate delayed release tablet 65 mg of elemental iron 65 mg of elemental iron oral Daily with breakfast 65 mg of elemental iron at 12/22/22 0858 glucagon injection 1 mg 1 mg intramuscular Q30 Min PRN heparin 5,000 unit/mL injection 5,000 Units 5,000 Units subcutaneous Q8H SOL 5,000 Units at 12/22/22 1348 hydrocortisone (ANUSOL-HC) suppository 25 mg 25 mg rectal BID 25 mg at 12/21/222230 insulin glargine (LANTUS, SEMGLEE) 100 unit/mL injection 5 Units 5 Units subcutaneous Nightly 5 Units at 12/21/222233 insulin lispro (HumaLOG, ADMELOG) 100 unit/mL injection 0-5 Units 0-5 Units subcutaneous Q4H SOL 1 Units at 12/22/22 1250 metroNIDAZOLE (FLAGYL) tablet 500 mg 500 mg oral TID 500 mg at 12/22/22 0858 ondansetron ODT (ZOFRAN-ODT) disintegrating tablet 4 mg 4 mg oral Q6H PRN Or ondansetron (ZOFRAN) injection 4 mg 4 mg intravenous Q6H PRN pantoprazole (PROTONIX) 4 mg/mL injection 40 mg 40 mg intravenous BID 40 mg at 12/22/22 0858 phenylephrine 0.25%-mineral oil 14%-petrolatum 74.9% ointment rectal QID PRN pregabalin (LYRICA) capsule 75 mg 75 mg oral Nightly 75 mg at 12/21/222230 prochlorperazine (COMPAZINE) tablet 5 mg 5 mg oral Q6H PRN Or prochlorperazine (COMPAZINE) injection 5 mg 5 mg intravenous Q6H PRN ramelteon (ROZEREM) tablet 8 mg 8 mg oral Nightly PRN senna-docusate (PERICOLACE) 8.6-50 mg per tablet 1 tablet 1 tablet oral BID PRN sodium chloride 0.9% flush 0.5-20 mL 0.5-20 mL intra-catheter Q8H SOL 10 mL at 12/22/22 1347 sodium chloride 0.9% flush 0.5-20 mL 0.5-20 mL intra-catheter PRN sodium chloride 0.9% infusion 125 mL/hr intravenous Continuous Continuous Medications Medication Dose Last Rate sodium chloride 0.9% infusion 125 mL/hr LDA: PICC Single Lumen 11/11/22 Non-tunneled Power Left Brachial;Upper arm (Active) Placement Date/Time: 11/11/22 1310 Placed by External Staff?: Other hospital Catheter Time Out Checklist Completed: Yes Hand Hygiene Performed: Yes Site Prep: Chlorhexidine Site Prep Agent has Completely Dried Before Insertion: Yes All 5 Steril... Number of days: 40 Urethral Catheter Double-lumen;Non-latex (Active) Placement Date/Time: 12/20/220 Inserted by: Salvador Smith RN Catheter Type: Double-lumen;Non-latex Tube Size (Fr.): 16 Fr Catheter Balloon Size: 10 mL Urine Returned: Yes Number of days: 0 Vent settings: Hemodynamic parameters for last 24 hours: Physical Exam: General Appearance: Alert, cooperative, confused not following any commands. Head: Normocephalic, without obvious abnormality, atraumatic Eyes: [...] four quadrants, non-distended Extremities: Extremities normal, no edema. Skin: Skin color, texture, turgor normal, no rashes, lesions or bruising Neurologic: Alert & oriented to person. Moves extremities to painful stimuli. Psychosocial: flat Dialysis Access Exam: Lab/Radiology/Diagnostic Review: Recent Labs Lab Units 12/22/22 1222 12/22/22 0748 12/21/22 1140 12/21/22 0808 12/18/22 0749 12/18/22 0551 12/17/22 0718 12/17/22 0602 SODIUM mmol/L -- 136 -- 139 -- 140 -- 142 POTASSIUM PLASMA mmol/L -- 4.9 -- 4.9 -- 4.1 -- 4.4 CHLORIDE mmol/L -- 100 -- 102 -- 104 -- 107 CO2 mmol/L -- 18* -- 22 -- 21* -- 24 BUN SERUM mg/dL -- 104* -- 94* -- 61* -- 53* CREATININE mg/dL -- 6.99* -- 5.43* -- 2.37* -- 2.26* IXG-GBP-LLVOECT mL/min/1.73 m2 -- 6 -- 8 -- 21 -- 22 GLUCOSE mg/dL -- 196 -- 150 -- 152 -- 202* POC GLUCOSE MONITOR mg/dL 189 -- < > -- < > -- < > -- CALCIUM mg/dL -- 8.0* -- 8.9 -- 9.5 -- 9.3 ALBUMIN g/dL -- 2.7* -- 2.8* -- 2.5* -- 2.7* PHOSPHORUS PLASMA mg/dL -- 8.4* -- -- -- 4.9* -- 4.8* < > = values in this interval not displayed. Additional Labs: Recent Labs Lab Units 12/22/22 0805 12/22/22 0748 12/21/22 1857 WBC K/cumm 9.5 9.7 9.4 10.4* HEMOGLOBIN g/dL 8.3* 8.4* 8.7* 8.4* HEMATOCRIT % 26.4* 26.5* 27.2* 26.3* PLATELETS K/cumm 288 283 306 304 NEUTROS PCT % 65.5 65.4 65.1 65.1 LYMPHS PCT % 22.1 22.2 22.4 23.7 MONOS PCT % 9.8 10.1 9.9 8.6 EOS PCT % 1.9 1.7 2.0 1.9 Assessment/Plan 1. chronic kidney disease: Stage IIIB, due to diabetes and hypertension. Creatinine has gone up dueto diuresis. We will hold for now. As off 12/22/2022 creatinine is worse. Will give iv fluids, hold diuretics 2. Hypertension: Blood pressures we will control 3. Edema: This is much better compared to the last admission. Due to chronic kidney disease and pulmonary hypertension. As of 12/21/2022 no lower extremity edema. 4. Anemia: Possible GI bleed. Possibly chronic kidney disease related. Possible iron deficiency. 5. Tremors: Possibly early Parkinson's. DICTATION DISCLAIMER: This note is transcribed using the [employer] direct voice recognition system without human menagerie superintendent. In an effort to expedite patient care, this note has not been adjusted for typographical, grammatical, and syntax by a trained medical records custodian. Portions of this note have been copied from the medical record, but edited appropriately to accurately reflect the patient's current clinical state. Jimbo Carlos A Office/exchange: [phone] Pager: [phone] * Barb Webb MD - 12/22/2022 1:13 PM CDT Images from the original note were not included. HOSPITALIST PROGRESS NOTE PCP: Cherelle Corcoran [phone] Admit Date: 12/20/2022 5:31 AM LOS: 2 CHIEF COMPLAINT/ BRIEF HOSPITAL COURSE Fatigue and weakness This is a 72-year-old black female was admitted secondary to fatigue and weakness. In the emergencydepartment patient was found to have what appeared to be a GI bleed. GI was consulted and patient was admitted Patient's hemoglobin dropped a small amount on 12/21. Transfusion was not needed Patient has existing osteomyelitis of the great toe. She is on daptomycin and Flagyl until seven four Patient's kidney function is acutely worsened this hospitalization compared to previous. Is possible as the secondary to medications At baseline patient has stage IIIB chronic kidney disease. We are holding diuresis INTERVAL HISTORY Patient remains very weak today. She answers questions appropriately. She denies any acute pain, just feels very lethargic and weak. She denies any pain in her foot Tried contacting patient's daughter Honey as she has multiple questions about medications (per nursing). Due to acutely worsening renal function daughter is apparently concerned that antibiotics are to blame. Due to acute worsening of renal function we are placing a Joy catheter for strict ins and outs REVIEW OF SYSTEMS Positive for weakness. Negative for foot pain EXAM Vitals: 12/22/22 0700 BP: 133/64 Pulse: 71 Resp: 16 Temp: 37.2 ??C (98.9 ??F) SpO2: 98% Constitutional: Patient appears well-developed. She is obese. She is ill- appearing. Previous notes state that she is nonverbal, but she was able to communicate with me. She sounds very weak and tired HENT: Head: Normocephalic and atraumatic. Nose: Nose normal. Mouth/Throat: Oropharynx is clear and moist. Eyes: Conjunctivae and EOM are normal. Pupils are equal, round, and reactive to light. Neck: Normal range of motion. Neck supple. No tracheal deviation present. No thyromegaly present. Cardiovascular: Normal rate, regular rhythm and normal heart sounds. Pulmonary/Chest: Effort normal and breath sounds normal. No respiratory distress. No wheezes. No rales. Abdominal: Soft. Bowel sounds are normal. No distension. There is no tenderness. Musculoskeletal: Positive for swelling bilaterally. Edema in the legs bilaterally-1+. Patient has wound on the right hallux Neurological: Patient is alert and oriented to person, place, and time. Patient displays normal reflexes. No cranial nerve deficit. Patient profound weakness. She can barely corporate travel expert a pen. She is unableto write her name. Mild tremors when holding utensils Skin: Patient has healing wound on great toe of right foot. Patient is also having skin breakdown in the perineal area secondary to fluid. Will place Joy Psychiatric: Normal mood and affect. Behavior is normal. DATA Vitals: 12/21/22 1727 12/21/22 1946 12/21/22 2349 12/22/22 0700 BP: 136/63 134/63 132/65 133/64 BP Location: Right arm Patient Position: Lying Pulse: 75 69 71 71 Resp: 18 18 16 Temp: 36.8 ??C (98.2 ??F) 36.8 ??C (98.3 ??F) 37.2 ??C (98.9 ??F) TempSrc: Oral Oral Oral SpO2: 96% 94% 98% Weight: Height: I/O last 2 completed shifts: In: - Out: 110 [Urine:110] No intake/output data recorded. LDA: Peripheral IV 12/19/22 22 G Posterior;Right Hand (Active) Placement Date: 12/19/22 Placed by External Staff?: Other hospital Type: Angiocath Size (Gauge): 22G Location Orientation: Posterior;Right Location: Hand Number of days: 2 PICC Single Lumen 11/11/22 Non-tunneled Power Left Brachial;Upper arm (Active) Placement Date/Time: 11/11/22 1310 Placed by External Staff?: Other hospital Catheter Time Out Checklist Completed: Yes Hand Hygiene Performed: Yes Site Prep: Chlorhexidine Site Prep Agent has Completely Dried Before Insertion: Yes All 5 Steril... Number of days: 39 Urethral Catheter Double-lumen;Non-latex (Active) Placement Date/Time: 12/20/222199 Inserted by: Salvador Smith RN Catheter Type: Double-lumen;Non-latex Tube Size (Fr.): 16 Fr Catheter Balloon Size: 10 mL Urine Returned: Yes Number of days: 0 24hr Min/Max: Temp Min: 36.8 ??C (98.2 ??F) Max: 37.2 ??C (98.9 ??F) Pulse Min: 68 Max: 75 BP Min: 115/54 Max: 136/63 Resp Min: 16 Max: 18 SpO2 Min: 94 % Max: 98 % CURRENT LAB RESULTS Recent Results (from the past 12 hour(s)) POCT glucose Collection Time: 12/22/22 5:07 AM Result Value Ref Range Glucose, POC 215 (H) 70 - 199 mg/dL POCT glucose Collection Time: 12/22/22 7:43 AM Result Value Ref Range Glucose, POC 237 (H) 70 - 199 mg/dL Comprehensive metabolic panel Collection Time: 12/22/22 7:48 AM Result Value Ref Range Sodium 136 135 - 145 mmol/L Potassium, pl 4.9 3.3 - 4.9 mmol/L Chloride 100 97 - 110 mmol/L CO2 18 (L) 22 - 32 mmol/L Anion gap 18 (H) 2 - 15 mmol/L BUN 104 (H) 6 - 25 mg/dL Creatinine 6.99 (H) 0.60 - 1.10 mg/dL Glucose 196 70 - 199 mg/dL Calcium 8.0 (L) 8.5 - 10.3 mg/dL Bilirubin, total <0.2 0.1 - 1.2 mg/dL Protein, pl 7.3 6.5 - 8.5 g/dL Albumin 2.7 (L) 3.5 - 5.0 g/dL Alk phos 169 (H) 40 - 130 Units/L ALT 14 7 - 45 Units/L AST 22 10 - 45 Units/L Creatine kinase (CK), total Collection Time: 12/22/22 7:48 AM Result Value Ref Range CK 66 30 - 200 Units/L CBC with auto differential Collection Time: 12/22/22 7:48 AM Result Value Ref Range WBC 9.4 3.8 - 9.9 K/cumm Hgb 8.7 (L) 11.9 - 15.5 g/dL Hct 27.2 (L) 35.6 - 45.5 % Plt 306 150 - 400 K/cumm MPV 11.2 9.1 - 12.3 fL RBC 2.88 (L) 3.90 - 5.20 M/cumm MCV 94.4 81.3 - 96.4 fL MCH 30.2 27.1 - 33.3 pg MCHC 32.0 (L) 32.3 - 35.7 g/dL RDW CV 15.9 (H) 11.1 - 14.9 % RDW SD 54.8 (H) 35.7 - 48.1 fL NRBC abs 0.00 0.00 - 0.01 K/cumm Differential, auto Collection Time: 12/22/22 7:48 AM Result Value Ref Range Neutrophil abs 6.1 1.7 - 6.5 K/cumm Imm gran abs 0.0 0.0 - 0.1 K/cumm Lymphocyte abs 2.1 0.8 - 3.3 K/cumm Monocyte abs 0.9 (H) 0.2 - 0.8 K/cumm Eosinophil abs 0.2 0.0 - 0.5 K/cumm Basophil abs 0.0 0.0 - 0.1 K/cumm Neutrophil pct 65.1 % Imm gran pct 0.3 % Lymphocyte pct 22.4 % Monocyte pct 9.9 % Eosinophil pct 2.0 % Basophil pct 0.3 % Phosphorus Collection Time: 12/22/22 7:48 AM Result Value Ref Range Phosphorus, pl 8.4 (H) 2.3 - 4.5 mg/dL eGFR Collection Time: 12/22/22 7:48 AM Result Value Ref Range eGFR 6 mL/min/1.73 m2 CBC with auto differential Collection Time: 12/22/22 8:05 AM Result Value Ref Range WBC 9.5 3.8 - 9.9 K/cumm Hgb 8.3 (L) 11.9 - 15.5 g/dL Hct 26.4 (L) 35.6 - 45.5 % Plt 288 150 - 400 K/cumm MPV 11.2 9.1 - 12.3 fL RBC 2.81 (L) 3.90 - 5.20 M/cumm MCV 94.0 81.3 - 96.4 fL MCH 29.5 27.1 - 33.3 pg MCHC 31.4 (L) 32.3 - 35.7 g/dL RDW CV 15.9 (H) 11.1 - 14.9 % RDW SD 54.5 (H) 35.7 - 48.1 fL NRBC abs 0.00 0.00 - 0.01 K/cumm CBC with auto differential Collection Time: 12/22/22 8:05 AM Result Value Ref Range WBC 9.7 3.8 - 9.9 K/cumm Hgb 8.4 (L) 11.9 - 15.5 g/dL Hct 26.5 (L) 35.6 - 45.5 % Plt 283 150 - 400 K/cumm MPV 11.2 9.1 - 12.3 fL RBC 2.80 (L) 3.90 - 5.20 M/cumm MCV 94.6 81.3 - 96.4 fL MCH 30.0 27.1 - 33.3 pg MCHC 31.7 (L) 32.3 - 35.7 g/dL RDW CV 15.9 (H) 11.1 - 14.9 % RDW SD 55.2 (H) 35.7 - 48.1 fL NRBC abs 0.00 0.00 - 0.01 K/cumm Differential, auto Collection Time: 12/22/22 8:05 AM Result Value Ref Range Neutrophil abs 6.4 1.7 - 6.5 K/cumm Imm gran abs 0.0 0.0 - 0.1 K/cumm Lymphocyte abs 2.2 0.8 - 3.3 K/cumm Monocyte abs 1.0 (H) 0.2 - 0.8 K/cumm Eosinophil abs 0.2 0.0 - 0.5 K/cumm Basophil abs 0.0 0.0 - 0.1 K/cumm Neutrophil pct 65.4 % Imm gran pct 0.3 % Lymphocyte pct 22.2 % Monocyte pct 10.1 % Eosinophil pct 1.7 % Basophil pct 0.3 % Differential, auto Collection Time: 12/22/22 8:05 AM Result Value Ref Range Neutrophil abs 6.2 1.7 - 6.5 K/cumm Imm gran abs 0.0 0.0 - 0.1 K/cumm Lymphocyte abs 2.1 0.8 - 3.3 K/cumm Monocyte abs 0.9 (H) 0.2 - 0.8 K/cumm Eosinophil abs 0.2 0.0 - 0.5 K/cumm Basophil abs 0.0 0.0 - 0.1 K/cumm Neutrophil pct 65.5 % Imm gran pct 0.3 % Lymphocyte pct 22.1 % Monocyte pct 9.8 % Eosinophil pct 1.9 % Basophil pct 0.4 % POCT glucose Collection Time: 12/22/22 12:22 PM Result Value Ref Range Glucose, POC 189 70 - 199 mg/dL MEDICATIONS FOR CURRENT ENCOUNTER Scheduled Meds: amLODIPine, 10 mg, oral, Nightly [Held by Provider] atorvastatin, 20 mg, oral, Nightly benztropine, 1.5 mg, oral, Nightly carvediloL, 6.25 mg, oral, BID with meals (bkfst, dinner) DAPTOmycin, 350 mg, intravenous, Q48H ferrous sulfate, 65 mg of elemental iron, oral, Daily with breakfast heparin, 5,000 Units, subcutaneous, Q8H SOL hydrocortisone, 25 mg, rectal, BID insulin glargine, 5 Units, subcutaneous, Nightly insulin lispro, 0-5 Units, subcutaneous, Q4H SOL metroNIDAZOLE, 500 mg, oral, TID pantoprazole, 40 mg, intravenous, BID pregabalin, 75 mg, oral, Nightly sodium chloride 0.9%, 0.5-20 mL, intra-catheter, Q8H SOL Continuous Infusions: PRN Meds:. acetaminophen, 650 mg albuterol HFA, 2 puff sodium chloride 0.9%, 30 mL dextrose, 15 g OR dextrose, 250 mL glucagon, 1 mg ondansetron ODT, 4 mg OR ondansetron, 4 mg phenylephrine 0.25%-mineral oil 14%-petrolatum 74.9%, prochlorperazine, 5 mg OR prochlorperazine, 5 mg ramelteon, 8 mg senna-docusate, 1 tablet sodium chloride 0.9%, 0.5-20 mL Diet: Dietary Orders (From admission, onward) Start Ordered 12/20/22 2100 Bedtime snack At bedtime Comments: If bedtime BG is less than 100mg/dl, give patient a 15 gram carbohydrate snack. 12/20/22 1118 12/20/22 0548 Adult Diet Restricted; Consistent Carb 1600 chanelle Diet effective now Question Answer Comment () Diet type Restricted Diabetic: Consistent Carb 1600 chanelle 12/20/22 0554 All labs and images done in past 24 hours have been reviewed and addressed by me ASSESSMENT AND PLAN All Diagnosis Present on Admission Unless Otherwise Stated: Principal Problem: GI bleed Active Problems: Schizoaffective disorder, bipolar type ([facility]) ([facility]) Type 2 diabetes mellitus with diabetic neuropathy, with long-term current use of insulin ([facility]) ([facility]) Hypertension associated with diabetes ([facility]) Hyperlipidemia associated with type 2 diabetes mellitus ([facility]) 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 2 diabetes mellitus ([facility]) ([facility]) Late onset Alzheimer's dementia without behavioral disturbance ([facility]) Anemia Weakness Osteomyelitis of great toe of right foot ([facility]) ([facility]) CLEMENTE (acute kidney injury) ([facility]) ([facility]) Bandemia CLEMENTE on CKD stage 3b -baseline creatinine appears to be between 2.3-2.7. -creatinine has increased to 5.43 on 12/21 and 6.99 on 12/22 -diuresis is being held -nephrology on the case. Appreciate Dr. Strauss -patient's daughter is concerned that antibiotic may be causing this -daptomycin is set to finish on 12/23. May want to stop it a day early -placing Joy catheter for strict ins and outs, also to ensure there is no obstruction -Joy catheter will have the added benefit of assisting with skin breakdown Possible GI bleed-ruled out -GI consulted concerning, positive FOB , could be gastritis or esophagitis -Protonix and ferrous sulfate -blood consent has been signed on 12/21 -was very concerned about finding a hemoglobin of 6.0 on the morning of seven two. Repeat showed improvement at 8.4 -GI recommends transitioned to p.o. PPI twice a day for eight weeks then decrease to daily for eight weeks -no concern for active GI bleed. Baseline hemoglobin is around eight Normocytic Anemia l could be CKD, possible iron deficiency -H & H 9.6 / 30.6, No treatment implemented -Monitor closely repeat CBC q 6 hr -Continue to monitor closely and repeat labs in a.m -GI does not feel there is an acute GI bleed. Will continue to monitor Generalized weakness and fatigue, -Could be chronic, physically deconditioned, or progression of disease -Fall and safety precaution -PT/OT -will ask for swallow evaluation -patient has acutely worsening renal function which may be contributing as well Osteomyelitis right first great toe -Per note refused previous recommendation for surgery, requested second opinion -Wound and ID consulted -Continue Dapto and Flagyl until 12/23/22 -Podiatry has been consulted. Would appreciate their recommendation - Leukocytosis likely d/t suspect UTI, Osteomyelitis -WBC 10.9, will request blood cultures and UA -Monitor and repeat labs in am -leukocytosis is 12.9 on 12/21 Preserved ejection fraction CHF not in exacerbation -On 12/08/22 EF 65 %. -Continue Coreg 6.225 mg po bid Dementia -Fall / safety DMT2 uncontrolled -Glucose 226, fingerstick AC/HS SSI lantus Skin breakdown on upper thighs Secondary to moisture. Placing Joy catheter -barrier cream has been placed. Appreciate wound care HLD -Held Lipitor d/t elevated Video Manager HTN uncontrolled -Continue Norvasc 10 mg po HS Schizophrenia with movement -Continue Risperdal and cogentin DVT Prophylaxis -Heparin Medical Decision Making Complexity: moderate- secondary to acutely worsening renal function, long discussions with family Consulting physicians: Treatment Team: Consulting Physician: Ganesh Urrutia MD; ConsultingPhysician: En Chaudhary MD; Consulting Physician: Jimbo Strauss MD; Consulting Physician: Portillo Marin DPM Disposition: Patient remains very weak. Anticipate the patient will be here least an additional 3-4days as we navigate her worsening renal function Code status: Full Code Voice recognition software [employer] was used dictate and transcribe this document. Safety Companion variances may occur. Despite proofreading, typographical errors may occur. Barb Webb MD. HOSPITALIST 12/22/2022 1:13 PM * Sara Thornton, OT - 12/22/2022 12:53 PM CDT Occupational Therapy NOTE / SESSION TYPE: Initial Evaluation Patient Name: Sixto Chakraborty Date of : 1950 Age / Sex: 72 y.o. / female Room: [facility]/[id number] Admit Date: 12/20/2022 Date of Service: 12/22/22 Time In: 1253 Time Out: 1347 Primary Diagnosis: GI bleed HPI: Sixto Chakraborty is a 72 y.o. female who presents from [facility] ED via EMS at approximately 0530 due to fatigue and weakness. Pt tested positive for fecal occult blood while at [facility]. Pt denied pain. Pt has not gotten out of bed, all fall precautions remain in place. Pt has been added to the turn schedule. Pt cleansed of bowel incontinence upon arrival to unit. [facility], resuming [facility] home infusion and home health nurse IV abt (12/23) /PT/OT. Notable History: Arthritis, CHF, Dementia, Depression, Diabetic neuropathy, HLD, HTN, Osteomyelitis, CKD, Schizophrenia, and DMT2. Past Medical History: Diagnosis Date Arthritis CHF (congestive heart failure) (CMS/HCC) (HCC) Dementia ([facility]) Depression Diabetic neuropathy (HCC) Hyperlipidemia Hypertension Movement disorder Osteomyelitis (HCC) Renal disorder Schizophrenia (HCC) Type 2 diabetes mellitus (HCC) Past Surgical History: Procedure Laterality Date SECTION Right right foot TOE AMPUTATION Right 01/06/2020 4th toe amp/ foot debridement/ Dr. Anat Pelayo Precautions (Including Weight-Bearing): fall Caregiver Present for Session (Yes or No): No SUBJECTIVE: Patient Comment: I'm finishing eating Pain Assessment: Pre-therapy pain level: 0 / [...] session: Yes Completed patient handoff and notified AREA MECHANIC / RN, of patient's location and functional status upon completion of session Vital Signs: Pt with no complaints of dizziness, lightheadedness or SOB. Cognitive / Perceptual Assessment: A&Ox4, single step command follow 100%, pleasant, cooperative, delayed processing UE ROM / Strength / Coordination: (A)ROM - Right: WFL except shoulder flex/abd ~80 (2+/5) Strength - Right: 4/5 (A)ROM - Left: WFL except shoulder flex/abd ~80 (2+/5) Strength - Left: 4/5 Hand Dominance: Right Water/Wastewater Engineer Strength (Right): fair Water/Wastewater Engineer Strength (Left): fair Right Serial Opposition: Intact Left Serial Opposition: Intact Balance: Static sitting balance: good Dynamic sitting balance: good Static standing balance: fair+ Dynamic standing balance: Mobility / Transfers: Bed mobility (Components & Assistance): not tested Transfer(s): sit>stand min A, ambulates ~40' using w/w with cg Activities of Daily Living / Living Skills: UE dressing: Mod A to don gown as robe Lower Body Dressing: dependent to doff/don socks, max A to don underwear Other: ASSESSMENT: Rehab Potential (Prognosis): good Problem List: Patient has impairments including: Decreased UE ROM , Decreased UE strength, Decreased coordination, Decreased balance, Decreased mobility, Decreased endurance, Decreased safety awareness, and Decreased ADL independence. Barriers to Discharge: Limited safety awareness, Limited insight into deficits, Decreased endurance, Upper extremity weakness, and Lower extremity weakness PLAN: OT Discharge Recommendations this date: OT RECOMMENDATIONS: OT Recommendation: Retirement Facility Patient at risk for: Additional recommendation comments: Justification of discharge recommendations flow sheet completed: Yes Frequency of therapy: 3-5x/wk Intervention / Education needs: ADL training, Balance activities, Functional transfer training, Safety education, Precautions education, Pursed lip breathing / Relaxation techniques, UE home exerciseprogram education, Family training as appropriate, and Energy conservation techniques. Education provided: Patient has been educated on Role of OT, OT plan of care, and ADL training. Individual(s) verbalized understanding. Short Term Goals / Care Plan: Multi-Disciplinary Problems (from Occupational Therapy) Active Problems Problem: OT Misc Start Date: 12/22/22 Goal Start Date Expected End Date End Date OT STG - Misc 1 12/22/22 12/29/22 -- Goal Details: Patient will complete HEP with sba one time to increase tolerance for ADL's. Goal Start Date Expected End Date End Date OT STG - Misc 2 12/22/22 12/29/22 -- Goal Details: Patient will complete functional transfer with modified indep one time. Goal Start Date Expected End Date End Date OT STG - Misc 3 12/22/22 12/29/22 -- Goal Details: Patient will complete UE/LE dress with min A one time. Goal Start Date Expected End Date End Date OT STG - Misc 4 12/22/22 12/29/22 -- Goal Details: Patient will complete grooming, 2 tasks with modified indep one time. If this is the last note, consider this the discharge summary. Sara Mcdonnell??PAUL Curry/Nadine 12/22/22 * Laquita Yost, PT - 12/22/2022 12:17 PM CDT Physical Therapy INITIAL EVALUATION PATIENT'S NAME:Sixto Chakraborty :1950 AGE:72 y.o. ROOM:[place] [id number] TIME IN: 1217 TIME OUT: 1257 CURRENT DIAGNOSIS AND HOSPITAL COURSE: Patient presents to [facility] on 12/20/2022 with c/o increased weakness and fatigue. Workup revealed GI bleed and R great toe osteomyelitis PMH: CHF, HLD, HTN, osteomyelitis, DM 2, CKD, refer to chart for full hx Patient Active Problem List Diagnosis Schizoaffective disorder, bipolar type (CMS/HCC) (HCC) Diabetic neuropathy (HCC) Type 2 diabetes mellitus with diabetic neuropathy, with long-term current use of insulin (CMS/HCC) (HCC) Hypertension associated with diabetes (HCC) Amputation of toe of right foot (CMS/HCC) (HCC) Iron deficiency anemia Gastroesophageal reflux disease Hyperlipidemia associated with type 2 diabetes mellitus (HCC) Dementia ([facility]) Schizoaffective disorder, bipolar type ([facility]) ([facility]) 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 2 diabetes mellitus ([facility]) ([facility]) Encounter for Medicare annual wellness exam Late onset Alzheimer's dementia without behavioral disturbance ([facility]) Volume overload Anemia Toe necrosis ([facility]) ([facility]) Physical deconditioning Left leg DVT ([facility]) ([facility]) Pulmonary nodule Retention of urine, unspecified Unspecified osteoarthritis, unspecified site Unsteadiness on feet Weakness Parkinsonism ([facility]) Wheezing Anemia in stage 4 chronic kidney disease ([facility]) Osteomyelitis of great toe of right foot ([facility]) ([facility]) Abnormal urinalysis Cellulitis of great toe of right foot CLEMENTE (acute kidney injury) ([facility]) ([facility]) Acute on chronic diastolic congestive heart failure ([facility]) ([facility]) Bibasilar consolidations Movement disorder Shortness of breath GI bleed Bandemia Past Medical History: Diagnosis Date Arthritis CHF (congestive heart failure) ([facility]) ([facility]) Dementia ([facility]) Depression Diabetic neuropathy ([facility]) Hyperlipidemia Hypertension Movement disorder Osteomyelitis (HCC) Renal disorder Schizophrenia ([facility]) Type 2 diabetes mellitus (HCC) Past Surgical History: Procedure Laterality Date SECTION Right right foot TOE AMPUTATION Right 01/06/2020 4th toe amp/ foot debridement/ Dr. Anat Pelayo SUBJECTIVE LIVES WITH: daughter LIVING ENVIRONMENT: 1st floor apartment with 0 steps to enter PRIOR LEVEL OF FUNCTION: Indep with ADLs. Needs assistance from daughter for IADLs. Indep functional mobility and household ambulation with w/w. FALLS: 3 from losing balance, denies injury EQUIPMENT OWNED: w/w EQUIPMENT USED: w/w SOCIAL SUPPORTS: daughter PATIENT/FAMILY GOAL: work on my [employer] MENTAL STATUS/ORIENTATION: Alert and Oriented to person, situation, and location ( hospital ). Disoriented to time ( 2012). OBJECTIVE PRECAUTIONS: fall, bed/chair alarm, and contact isolation (MRSA) APPEARANCE/POSTURE: Patient supine with HOB elevated approx 15 degrees, in hospital gown, cath in place, bed alarm in place/active. VITAL SIGNS: Resting heart rate: 65 bpm Post-activity heart rate: 69 bpm Resting O2 sat: 98% on room air Post-activity O2 sat: 98% on room air PAIN: Pre-therapy pain level: 0/10 Pain location: n/a Pain intervention: n/a Post-therapy pain level/response to intervention: 0/10 LE ASSESSMENTS: Right LE ROM: WFL Left LE ROM: WFL Right LE strength: at least 3/5 (not formally assessed D/T confusion) Left LE strength: at least 3/5 (not formally assessed D/T confusion) Tone: WNL MOBILITY: Bed mobility (rolling): SPV for verbal cues and use of handrails. Bed mobility (supine to/from sit): supine to sit with mod A x1 for trunk / BLE management. Transfers (sit to/from stand): with w/w and min A x1 for initiating stand / steadying for several trials. Transfers (squat pivot): max A x1 for initiating transfer and pivoting hips. Patient demonstrates an inability to advance the BLEs during transfer, but is able to reach with the LUE for armrest. Ambulation: not appropriate this date D/T inability to advance BLEs Argueta Balance Scale 1. Sitting to Standing: Needs minimal aid to stand or stabilize 2. Standing Unsupported: Unable to stand 30 seconds unsupported 3. Sitting with Back Unsupported but Feet Supported on Floor or on a Stool: Able to sit 30 seconds 4. Standing to Sitting: Needs assist to sit 5. Transfers: Needs one person to assist 6. Standing Unsupported with Eyes Closed: Needs help to keep from falling 7. Standing Unsupported with Feet Together: Needs help to attain position and unable to hold for 15seconds 8. Reach Forward with Outstretched Arm While Standing: Loses balance while trying/requires externalsupport 9. System Software Programmer Object from Floor from a Standing Position: Unable to try/needs assist to keep from losing balance or falling 10. Turning to Look Behind Over Left and Right Shoulders While Standing: Needs assist to keep from losing balance or falling 11. Turn 360 Degrees: Needs assistance while turning 12. Place Alternate Foot on Step or Stool While Standing Unsupported: Needs assistance to keep fromfalling/unable to try 13. Standing Unsupported One Foot in Front: Loses balance while stepping or standing 14. Standing on One Leg: Unable to try needs assist to prevent fall Argueta Balance Score: 4 Not formally assessed this date D/T transfer tolerance and level of assist. Balance: Unsupported sitting EOB with SPV for approx 10 min. Supported static standing with w/w and min A for steadying approx 5 min to toilet. Frequent verbalscues needed for posture. Balance/Special Tests: Static sitting balance: GOOD - (unsupported) Dynamic sitting balance: GOOD - (unsupported) Static standing balance: FAIR + (with w/w) Dynamic standing balance: FAIR - (with w/w) AMPAC: Basic Mobility - 6 Click How much difficulty does the patient have: Turning over in bed: A little How much difficulty does the patient currently have: Sitting down and standing up from a chair witharms?: A lot How much difficulty does the patient have: Moving from lying on back to sitting on the side of the bed?: A little How much difficulty does the patient have: Moving to and from a bed to a chair including wheelchair?: A lot How much help does the patient currently need: Walk in hospital room?: A lot How much help from another person does the patient currently need: Climbing 3-5 steps with a railing?: Total Total 6 Click Score (range 6-24): 13 Score Interpretation: 13 6 click interpretation: AM-PAC 6 Click scores > 18 = Likely home discharge AM-PAC 6 Click scores < 18 = Likely require inpatient rehab or detention placement at discharge APPEARANCE/POSTURE (end of session): Patient seated in bedside recliner with BLEs elevate, in hospital gown & socks, cath in place, and chair alarm in place. OT, Sara, present in room at end of session. RN, Joni, notified of patient's status, tolerance to PT, and level of assist with transfers. EDUCATION: D/C recommendations, need for additional PT, bed mobility , functional transfer training, safety , positioning, range of motion, and role of PT evaluation RESPONSE TO EDUCATION: demonstrated understanding and verbalizes understanding ASSESSMENT PROBLEM LIST: decreased LE strength , impaired balance , decreased mobility , gait instability, decreased endurance, long standing deficits , medical complications, and decreased stability BARRIERS TO LEARNING: Physical and Cognitive BARRIERS TO DISCHARGE: Limited family support, Confusion, Decreased endurance, Lower extremity weakness, Incontinence of bladder, Medical complications, and Balance deficits REHAB POTENTIAL/PROGNOSIS: good PLAN PT Discharge Recommendations this date: PT Recommendation/Plan: Inpatient Rehab Facility Patient at high risk for: Falls, Readmission, Injury due to decreased ability to care for self, Injury due to reduced functional status, Injury due to balance deficits, Developing secondary complications: poor health management Recommend Inpatient Rehab/Acute Rehab due to: Ability to actively participate in intensive therapy 3 hours/day, 5 days/week or 900 minutes per week, Not at baseline due to impaired ability to complete ADLs, Impaired ability to complete functional mobility, Likely to return to the community at discharge with support system in place, Requires greater than 25% physical assistance with most mobility tasks, Requires multiple therapy disciplines to address functional deficits PT Recommendation/Plan Comments: Patient is a 72 y/o female presenting with weakness. PLOF, indep with w/w. At [facility], patient needs max A for transfers. Recommend intensive PT at an Rehab to improve problem list and indep. Treatment Plan/Interventions: Bed mobility, Transfer training, Gait training, Curb / stair negotiation, Balance training, Endurance training, Sitting / standing tolerance, BLE strengthening, and Therapeutic exercise / activities PT Frequency during current admission: 3-5x/wk Equipment Recommendations: none - patient already owns DME at home (w/w) Multi-Disciplinary Problems (from Physical Therapy) Active Problems Problem: PT Misc Start Date: 12/22/22 Goal Start Date Expected End Date End Date PT STG 1 - Patient to perform supine to/from sit transfers with CG assist. 12/22/22 12/29/22 -- Goal Start Date Expected End Date End Date PT STG 2 - Patient to perform sit to/from stand transfers with w/w and mod indep. 12/22/22 12/29/22-- Goal Start Date Expected End Date End Date PT STG 3 - Patient to perform bed to/from chair transfers with most appropriate technique and min Ax1. 12/22/22 12/29/22 -- Goal Start Date Expected End Date End Date PT STG 4 - Patient to ambulate 25 ft with w/w and min A x1. 12/22/22 12/29/22 -- Goal Start Date Expected End Date End Date PT STG 5 - Patient to perform static standing with w/w and appropriate posture for 8 min. 12/22/22 12/29/22 -- Goal Start Date Expected End Date End Date PT STG 6 - Patient to perform 15 reps of seated exercise to improve BLE strength. 12/22/22 12/29/22-- If this is the last note, please consider this the discharge summary. * En Chaudhary MD - 12/22/2022 11:40 AM CDT Images from the original note were not included. Infectious Disease Progress Note Sixto Chakraborty Admit Date: 12/20/2022 5:31 AM 12/22/2022 Hospital Day: 3 Requesting provider: Edmond Lara MD Reason for Consultation: osteomyelitis, UTI Subjective: No new changes ROS: Denies V/D/SOB/cough/rashes Anti-infectives (From admission, onward) Start Dose/Rate Route Frequency Ordered Stop 12/20/22 0900 DAPTOmycin (CUBICIN) 50 mg/mL sodium chloride 0.9% 350 mg 350 mg 210 mL/hr over 2 Minutes intravenous Every 48 hours 12/20/22 0554 12/26/22 0859 12/20/22 0900 metroNIDAZOLE (FLAGYL) tablet 500 mg 500 mg oral 3 times daily 12/20/22 0554 12/24/22 0859 MEDICATIONS FOR CURRENT ENCOUNTER: Current Facility-Administered Medications Medication Dose Route Frequency Provider Last Rate Last Admin acetaminophen (TYLENOL) tablet 650 mg 650 mg oral Q4H PRN Edmond Lara MD albuterol HFA (PROVENTIL HFA,VENTOLIN HFA,PROAIR HFA) 90 mcg/actuation inhaler 2 puff 2 puff inhalation Q4H PRN (RT) Edmond Lara MD amLODIPine (NORVASC) tablet 10 mg 10 mg oral Nightly Edmond Lara MD 10 mg at 12/21/222230 [Held by Provider] atorvastatin (LIPITOR) tablet 20 mg 20 mg oral Nightly Edmond Lara MD benztropine (COGENTIN) tablet 1.5 mg 1.5 mg oral Nightly Celsa Pedraza NP 1.5 mg at 12/21/222232 Carrier Fluids for Secondary Infusion - 0.9% Sodium Chloride 30 mL intravenous PRN Celsa Pedraza NP carvediloL (COREG) tablet 6.25 mg 6.25 mg oral BID with meals (bkfst, dinner) Edmond Lara MD6.25 mg at 12/22/22 0858 DAPTOmycin (CUBICIN) 50 mg/mL sodium chloride 0.9% 350 mg 350 mg intravenous Q48H Edmond Lara MD 350 mg at 12/22/22 0858 dextrose oral liquid liquid 15 g 15 g oral Q15 Min PRN Celsa Pedraza NP Or dextrose (D10W) 10% bolus 250 mL 250 mL intravenous Q15 Min PRN Celsa Pedraza NP ferrous sulfate delayed release tablet 65 mg of elemental iron 65 mg of elemental iron oral Daily with breakfast Edmond Lara MD 65 mg of elemental iron at 12/22/22 0858 glucagon injection 1 mg 1 mg intramuscular Q30 Min PRN Celsa Pedraza NP heparin 5,000 unit/mL injection 5,000 Units 5,000 Units subcutaneous Q8H [facility] Edmond Lara MD 5,000 Units at 12/22/22 0519 hydrocortisone (ANUSOL-HC) suppository 25 mg 25 mg rectal BID Kim Looney MD 25 mg at 12/22/22 0858 insulin glargine (LANTUS, SEMGLEE) 100 unit/mL injection 5 Units 5 Units subcutaneous Nightly Celsa Pedraza NP 5 Units at 12/21/22 2234 insulin lispro (HumaLOG, ADMELOG) 100 unit/mL injection 0-5 Units 0-5 Units subcutaneous Q4H [facility] Celsa Pedraza NP 2 Units at 12/22/22 0857 metroNIDAZOLE (FLAGYL) tablet 500 mg 500 mg oral TID Edmond Lara MD 500 mg at 12/22/22 0858 ondansetron ODT (ZOFRAN-ODT) disintegrating tablet 4 mg 4 mg oral Q6H PRN Edmond Lara MD Or ondansetron (ZOFRAN) injection 4 mg 4 mg intravenous Q6H PRN Edmond Lara MD pantoprazole (PROTONIX) 4 mg/mL injection 40 mg 40 mg intravenous BID Celsa Pedraza NP 40mg at 12/22/22 0858 phenylephrine 0.25%-mineral oil 14%-petrolatum 74.9% ointment rectal QID PRN Kim Looney MD pregabalin (LYRICA) capsule 75 mg 75 mg oral Nightly Edmond Lara MD 75 mg at 12/21/22 223 prochlorperazine (COMPAZINE) tablet 5 mg 5 mg oral Q6H PRN Celsa Pedraza NP Or prochlorperazine (COMPAZINE) injection 5 mg 5 mg intravenous Q6H PRN Celsa Pedraza NP ramelteon (ROZEREM) tablet 8 mg 8 mg oral Nightly PRN Edmond Lara MD senna-docusate (PERICOLACE) 8.6-50 mg per tablet 1 tablet 1 tablet oral BID PRN Edmond Lara MD sodium chloride 0.9% flush 0.5-20 mL 0.5-20 mL intra-catheter Q8H SOL Celsa Pedraza NP 10mL at 12/21/222236 sodium chloride 0.9% flush 0.5-20 mL 0.5-20 mL intra-catheter PRN Celsa Pedraza NP Objective: Vitals: 12/21/22 1727 12/21/22 1946 12/21/22 2349 12/22/22 0700 BP: 136/63 134/63 132/65 133/64 BP Location: Right arm Patient Position: Lying Pulse: 75 69 71 71 Resp: 18 18 16 Temp: 36.8 ??C (98.2 ??F) 36.8 ??C (98.3 ??F) 37.2 ??C (98.9 ??F) TempSrc: Oral Oral Oral SpO2: 96% 94% 98% Weight: Height: Temp (24hrs), Av.9 ??C (98.5 ??F), Min:36.8 ??C (98.2 ??F), Max:37.2 ??C (98.9 ??F) Height: 157.5 cm (5' 2 ) Weight: 67.5 kg (148 lb 13 oz) Intake/Output Summary (Last 24 hours) at 12/22/2022 1140 Last data filed at 12/21/2022 1352 Gross per 24 hour Intake -- Output 60 ml Net -60 ml Exam: General: no acute distress HEENT: dry mucus membranes Heart: RRR, no murmurs Lungs: clear to ausculation bilaterally, no wheezes or crackles Abdomen: soft, non-tender, non-distended, + bowel sounds Extremities: no LE edema; R great toe edema with ulcer Skin: no rash Neuro: sleeping, briefly woke to voice and then went back to sleep [facility] 12/08 Lab: Reviewed. Recent Labs Lab Units 12/22/22 0748 12/22/22 0743 12/22/22 0507 12/21/22 1140 12/21/22 0808 12/18/22 0749 12/18/22 0551 SODIUM mmol/L 136 -- -- -- 139 -- 140 POTASSIUM PLASMA mmol/L 4.9 -- -- -- 4.9 -- 4.1 CHLORIDE mmol/L 100 -- -- -- 102 -- 104 CO2 mmol/L 18* -- -- -- 22 -- 21* ANIONGAP mmol/L 18* -- -- -- 15 -- 15 GLUCOSE mg/dL 196 -- -- -- 150 -- 152 POC GLUCOSE MONITOR mg/dL -- 237* 215* < > -- < > -- BUN SERUM mg/dL 104* -- -- -- 94* -- 61* CREATININE mg/dL 6.99* -- -- -- 5.43* -- 2.37* CALCIUM mg/dL 8.0* -- -- -- 8.9 -- 9.5 ALBUMIN g/dL 2.7* -- -- -- 2.8* -- 2.5* ALK PHOS Units/L 169* -- -- -- 109 -- -- ALT Units/L 14 -- -- -- 11 -- -- AST Units/L 22 -- -- -- 18 -- -- BILIRUBIN TOTAL mg/dL <0.2 -- -- -- <0.2 -- -- < > = values in this interval not displayed. Recent Labs Lab Units 12/22/22 0805 12/22/22 0748 12/21/22 1857 WBC K/cumm 9.5 9.7 9.4 10.4* HEMOGLOBIN g/dL 8.3* 8.4* 8.7* 8.4* HEMATOCRIT % 26.4* 26.5* 27.2* 26.3* PLATELETS K/cumm 288 283 306 304 [facility] - [phone] 12/19 urine cx (from [facility]); ngtd 12/16 CK 180 12/20 urine cx: pending 12/20 blood cx: pending Assessment: 72 y.o. femalewith past medical history of CHF, DM (A1C 7.1 on 11/30), arthritis, dementia, schizophrenia, CKD, neuropathy, HLD, HTN and depression, presented to [facility] from [facility] as transfer for GI eval. R great toe osteomyelitis, currently on dapto/Flagyl until 12/23 Possible UTI GI bleed Acute on CKD DM with neuropathy Plan: -cont IV ceftriaxone for possible UTI -cont IV dapto and Flagyl until 12/23 -check CK for Mondays while on IV dapto until 12/23 -We called [facility] and urine cx was sent out and may take at least 1-2 days to result; will follow up on Thursday -GI consulted -Nephrology consulted -Follow CBC, CMP and temps -Supportive care En Chaudhary MD [place] [facility] [phone] For weekend coverage: [employer] [facility] [phone] * Jimbo Strauss MD - 12/21/2022 3:00 PM CDT Nephrology Daily Progress [facility]# [id number] SS#: [id number] Phone#: [phone] #: [id number] Subjective Chief complaint of Interval History: Nonverbal, looks comfortable. Poor p.o. intake. Objective Vitals: 24hr Min/Max: Temp Min: 36.8 ??C (98.2 ??F) Max: 37.1 ??C (98.8 ??F) Pulse Min: 65 Max: 130 BP Min: 115/54 Max: 139/64 Resp Min: 17 Max: 18 SpO2 Min: 94 % Max: 98 % Intake/Output Summary (Last 24 hours) at 12/21/20222138 Last data filed at 12/21/2022 1352 Gross per 24 hour Intake -- Output 710 ml Net -710 ml Wt Readings from Last 3 Encounters: 12/20/22 67.5 kg (148 lb 13 oz) 12/06/22 78.9 kg (173 lb 15.1 oz) 12/05/22 79.3 kg (174 lb 12.8 oz) Temp Av.9 ??C (98.5 ??F) Min: 36.8 ??C (98.2 ??F) Max: 37.1 ??C (98.8 ??F) BP Min: 115/54 Max: 139/64 Pulse Av.7 Min: 65 Max: 130 Resp Av.5 Min: 17 Max: 18 SpO2 Av.8 % Min: 94 % Max: 98 % Most Recent: Vitals: 12/21/221945 BP: 134/63 Pulse: 69 Resp: 18 Temp: 36.8 ??C (98.2 ??F) SpO2: 96% I/O last 2 completed shifts: In: - Out: 710 [Urine:710] No intake/output data recorded. Current Facility-Administered Medications Medication Dose Route Frequency Last Rate Last Admin acetaminophen (TYLENOL) tablet 650 mg 650 mg oral Q4H PRN albuterol HFA (PROVENTIL HFA,VENTOLIN HFA,PROAIR HFA) 90 mcg/actuation inhaler 2 puff 2 puff inhalation Q4H PRN (RT) amLODIPine (NORVASC) tablet 10 mg 10 mg oral Nightly 10 mg at 12/20/222103 [Held by Provider] atorvastatin (LIPITOR) tablet 20 mg 20 mg oral Nightly benztropine (COGENTIN) tablet 1.5 mg 1.5 mg oral Nightly 1.5 mg at 12/20/222103 Carrier Fluids for Secondary Infusion - 0.9% Sodium Chloride 30 mL intravenous PRN carvediloL (COREG) tablet 6.25 mg 6.25 mg oral BID with meals (bkfst, dinner) 6.25 mg at 12/21/221726 DAPTOmycin (CUBICIN) 50 mg/mL sodium chloride 0.9% 350 mg 350 mg intravenous Q48H 350 mg at 12/20/22 1001 dextrose oral liquid liquid 15 g 15 g oral Q15 Min PRN Or dextrose (D10W) 10% bolus 250 mL 250 mL intravenous Q15 Min PRN ferrous sulfate delayed release tablet 65 mg of elemental iron 65 mg of elemental iron oral Daily with breakfast 65 mg of elemental iron at 12/21/22 0855 furosemide (LASIX) tablet 60 mg 60 mg oral BID 60 mg at 12/21/22 0855 glucagon injection 1 mg 1 mg intramuscular Q30 Min PRN heparin 5,000 unit/mL injection 5,000 Units 5,000 Units subcutaneous Q8H SOL 5,000 Units at 12/21/22 1301 hydrocortisone (ANUSOL-HC) suppository 25 mg 25 mg rectal BID 25 mg at 12/21/22 0856 insulin glargine (LANTUS, SEMGLEE) 100 unit/mL injection 5 Units 5 Units subcutaneous Nightly 5 Units at 12/20/22 210 insulin lispro (HumaLOG, ADMELOG) 100 unit/mL injection 0-5 Units 0-5 Units subcutaneous Q4H SOL 3 Units at 12/21/22 1608 metroNIDAZOLE (FLAGYL) tablet 500 mg 500 mg oral TID 500 mg at 12/21/22 1609 ondansetron ODT (ZOFRAN-ODT) disintegrating tablet 4 mg 4 mg oral Q6H PRN Or ondansetron (ZOFRAN) injection 4 mg 4 mg intravenous Q6H PRN pantoprazole (PROTONIX) 4 mg/mL injection 40 mg 40 mg intravenous BID 40 mg at 12/21/22 0855 phenylephrine 0.25%-mineral oil 14%-petrolatum 74.9% ointment rectal QID PRN pregabalin (LYRICA) capsule 75 mg 75 mg oral Nightly 75 mg at 12/20/22 210 prochlorperazine (COMPAZINE) tablet 5 mg 5 mg oral Q6H PRN Or prochlorperazine (COMPAZINE) injection 5 mg 5 mg intravenous Q6H PRN ramelteon (ROZEREM) tablet 8 mg 8 mg oral Nightly PRN senna-docusate (PERICOLACE) 8.6-50 mg per tablet 1 tablet 1 tablet oral BID PRN sodium chloride 0.9% flush 0.5-20 mL 0.5-20 mL intra-catheter Q8H SOL 10 mL at 12/21/22 1301 sodium chloride 0.9% flush 0.5-20 mL 0.5-20 mL intra-catheter PRN Continuous Medications Medication Dose Last Rate LDA: PICC Single Lumen 11/11/22 Non-tunneled Power Left Brachial;Upper arm (Active) Placement Date/Time: 11/11/22 1310 Placed by External Staff?: Other hospital Catheter Time Out Checklist Completed: Yes Hand Hygiene Performed: Yes Site Prep: Chlorhexidine Site Prep Agent has Completely Dried Before Insertion: Yes All 5 Steril... Number of days: 40 Urethral Catheter Double-lumen;Non-latex (Active) Placement Date/Time: 12/20/22 2200 Inserted by: Salvador Smith RN Catheter Type: Double-lumen;Non-latex Tube Size (Fr.): 16 Fr Catheter Balloon Size: 10 mL Urine Returned: Yes Number of days: 0 Vent settings: Hemodynamic parameters for last 24 hours: Physical Exam: General Appearance: Alert, cooperative, confused not following any commands. Head: Normocephalic, without obvious abnormality, atraumatic Eyes: [...] four quadrants, non-distended Extremities: Extremities normal, no edema. Skin: Skin color, texture, turgor normal, no rashes, lesions or bruising Neurologic: Alert & oriented to person. Moves extremities to painful stimuli. Psychosocial: flat Dialysis Access Exam: Lab/Radiology/Diagnostic Review: Recent Labs Lab Units 12/21/22 2127 12/21/22 1140 12/21/22 0808 12/18/22 0749 12/18/22 0551 12/17/22 0718 12/17/22 0602 12/16/22 0727 12/16/22 0525 SODIUM mmol/L -- -- 139 -- 140 -- 142 -- 141 POTASSIUM PLASMA mmol/L -- -- 4.9 -- 4.1 -- 4.4 -- 4.4 CHLORIDE mmol/L -- -- 102 -- 104 -- 107 -- 107 CO2 mmol/L -- -- 22 -- 21* -- 24 -- 23 BUN SERUM mg/dL -- -- 94* -- 61* -- 53* -- 52* CREATININE mg/dL -- -- 5.43* -- 2.37* -- 2.26* -- 2.44* ZAG-WOD-NUCXMPU mL/min/1.73 m2 -- -- 8 -- 21 -- 22 -- 21 GLUCOSE mg/dL -- -- 150 -- 152 -- 202* -- 140 POC GLUCOSE MONITOR mg/dL 253* < > -- < > -- < > -- < > -- CALCIUM mg/dL -- -- 8.9 -- 9.5 -- 9.3 -- 9.2 ALBUMIN g/dL -- -- 2.8* -- 2.5* -- 2.7* -- 2.9* PHOSPHORUS PLASMA mg/dL -- -- -- -- 4.9* -- 4.8* -- 4.1 < > = values in this interval not displayed. Additional Labs: Recent Labs Lab Units 12/21/22 1857 12/21/22 1211 12/21/22 0808 12/20/22 1734 12/18/22 0551 WBC K/cumm 10.4* -- 12.9* 11.3* 10.9* HEMOGLOBIN g/dL 8.4* 8.4* 6.0* 9.3* 9.6* HEMATOCRIT % 26.3* 26.7* 19.3* 29.5* 30.6* PLATELETS K/cumm 304 -- 361 334 316 NEUTROS PCT % 65.1 -- -- 72.8 58.6 LYMPHS PCT % 23.7 -- -- 16.1 29.1 MONOS PCT % 8.6 -- -- 8.3 8.9 EOS PCT % 1.9 -- -- 2.2 2.4 Assessment/Plan 1. chronic kidney disease: Stage IIIB, due to diabetes and hypertension. Creatinine has gone up dueto diuresis. We will hold for now. 2. Hypertension: Blood pressures we will control 3. Edema: This is much better compared to the last admission. Due to chronic kidney disease and pulmonary hypertension. As of 12/21/2022 no lower extremity edema. 4. Anemia: Possible GI bleed. Possibly chronic kidney disease related. Possible iron deficiency. 5. Tremors: Possibly early Parkinson's. DICTATION DISCLAIMER: This note is transcribed using the [employer] direct voice recognition system without human menagerie superintendent. In an effort to expedite patient care, this note has not been adjusted for typographical, grammatical, and syntax by a trained medical records custodian. Portions of this note have been copied from the medical record, but edited appropriately to accurately reflect the patient's current clinical state. Jimbo Strauss Office/exchange: [phone] Pager: [phone] * Kim Looney MD - 12/21/2022 2:04 PM CDT [facility] Gastroenterology Inpatient Progress Note Admit Date: 12/20/2022 5:31 AM SUBJECTIVE HISTORY OF PRESENT ILLNESS WITH 24 HOUR UPDATE: Patient reports no hematochezia or melena. No nausea or vomiting. No abdominal pain. She is wondering why she is in the hospital. PERTINENT PAST MEDICAL, FAMILY, AND SOCIAL HISTORY: I have personally reviewed the patient's history that is notable as detailed in the assessment and plan MEDICATIONS: The patient's medications were reviewed and are notable as documented below Current Facility-Administered Medications: acetaminophen (TYLENOL) tablet 650 mg, 650 mg, oral, Q4H PRN, Edmond Lara MD albuterol HFA (PROVENTIL HFA,VENTOLIN HFA,PROAIR HFA) 90 mcg/actuation inhaler 2 puff, 2 puff, inhalation, Q4H PRN (RT), Edmond Lara MD amLODIPine (NORVASC) tablet 10 mg, 10 mg, oral, Nightly, Edmond Lara MD, 10 mg at 12/20/222103 [Held by Provider] atorvastatin (LIPITOR) tablet 20 mg, 20 mg, oral, Nightly, Edmond Lara MD benztropine (COGENTIN) tablet 1.5 mg, 1.5 mg, oral, Nightly, Celsa Pedraza NP, 1.5 mg at 12/20/22 210 Carrier Fluids for Secondary Infusion - 0.9% Sodium Chloride, 30 mL, intravenous, PRN, Cindy Pedraza NP carvediloL (COREG) tablet 6.25 mg, 6.25 mg, oral, BID with meals (bkfst, dinner), Edmond Lara MD, 6.25 mg at 12/21/22 0855 DAPTOmycin (CUBICIN) 50 mg/mL sodium chloride 0.9% 350 mg, 350 mg, intravenous, Q48H, Melissa Lara MD, 350 mg at 12/20/22 1001 dextrose oral liquid liquid 15 g, 15 g, oral, Q15 Min PRN OR dextrose (D10W) 10% bolus 250 mL, 250 mL, intravenous, Q15 Min PRN, Celsa Pedraza NP ferrous sulfate delayed release tablet 65 mg of elemental iron, 65 mg of elemental iron, oral, Daily with breakfast, Edmond Lara MD, 65 mg of elemental iron at 12/21/22 0855 furosemide (LASIX) tablet 60 mg, 60 mg, oral, BID, Edmond Lara MD, 60 mg at 12/21/22 0855 glucagon injection 1 mg, 1 mg, intramuscular, Q30 Min PRN, Celsa Pedraza NP heparin 5,000 unit/mL injection 5,000 Units, 5,000 Units, subcutaneous, Q8H SOL, Edmond Lara MD, 5,000 Units at 12/21/22 1301 hydrocortisone (ANUSOL-HC) suppository 25 mg, 25 mg, rectal, BID, Kim Looney MD, 25 mg at 12/21/22 0856 insulin glargine (LANTUS, SEMGLEE) 100 unit/mL injection 5 Units, 5 Units, subcutaneous, Nightly, Celsa Pedraza NP, 5 Units at 12/20/22 2103 insulin lispro (HumaLOG, ADMELOG) 100 unit/mL injection 0-5 Units, 0-5 Units, subcutaneous, Q4H [facility], Celsa Pedraza NP, 2 Units at 12/21/22 1205 metroNIDAZOLE (FLAGYL) tablet 500 mg, 500 mg, oral, TID, Edmond Lara MD, 500 mg at 12/21/22 0855 ondansetron ODT (ZOFRAN-ODT) disintegrating tablet 4 mg, 4 mg, oral, Q6H PRN OR ondansetron (ZOFRAN) injection 4 mg, 4 mg, intravenous, Q6H PRN, Edmond Lara MD pantoprazole (PROTONIX) 4 mg/mL injection 40 mg, 40 mg, intravenous, BID, Celsa Pedraza NP, 40 mg at 12/21/22 0855 phenylephrine 0.25%-mineral oil 14%-petrolatum 74.9% ointment, , rectal, QID PRN, Kim Looney MD pregabalin (LYRICA) capsule 75 mg, 75 mg, oral, Nightly, Edmond Lara MD, 75 mg at 12/20/22 2104 prochlorperazine (COMPAZINE) tablet 5 mg, 5 mg, oral, Q6H PRN OR prochlorperazine (COMPAZINE) injection 5 mg, 5 mg, intravenous, Q6H PRN, Celsa Pedraza NP ramelteon (ROZEREM) tablet 8 mg, 8 mg, oral, Nightly PRN, Edmond Lara MD senna-docusate (PERICOLACE) 8.6-50 mg per tablet 1 tablet, 1 tablet, oral, BID PRN, Edmond Lara MD sodium chloride 0.9% flush 0.5-20 mL, 0.5-20 mL, intra-catheter, Q8H SOLMilo Brandy La-Keysha, NP, 10 mL at 12/21/22 1301 sodium chloride 0.9% flush 0.5-20 mL, 0.5-20 mL, intra-catheter, PRN, Celsa Pedraza NP REVIEW OF SYSTEMS: A complete (comprehensive) review of systems was performed and the pertinent negatives and positives are noted in the HPI. All other systems reviewed are negative. PHYSICAL EXAM: BP 136/60 Pulse (!) 130 Temp 37.1 ??C (98.8 ??F) (Oral) Resp 17 Ht 157.5 cm (5' 2 ) Wt 67.5 kg (148 lb 13 oz) SpO2 94% BMI 27.22 kg/m?? Wt Readings from Last 3 Encounters: 12/20/22 67.5 kg (148 lb 13 oz) 12/06/22 78.9 kg (173 lb 15.1 oz) 12/05/22 79.3 kg (174 lb 12.8 oz) Temp Readings from Last 3 Encounters: 12/21/22 37.1 ??C (98.8 ??F) (Oral) 12/18/22 36.6 ??C (97.9 ??F) (Oral) 12/05/22 37 ??C (98.6 ??F) (Oral) BP Readings from Last 3 Encounters: 12/21/22 136/60 12/18/22 152/65 12/05/22 145/71 Pulse Readings from Last 3 Encounters: 12/21/22 (!) 130 12/18/22 71 12/05/22 72 24hr Min/Max: Temp Min: 36.7 ??C (98.1 ??F) Max: 37.1 ??C (98.8 ??F) Pulse Min: 65 Max: 130 BP Min: 116/63 Max: 158/61 Resp Min: 17 Max: 18 SpO2 Min: 91 % Max: 95 % Input/Output: I/O last 2 completed shifts: In: 120 [P.O.:120] Out: 600 [Urine:600] Physical Exam Vitals reviewed. Constitutional: General: She is not in acute distress. Appearance: She is not ill-appearing. HENT: Nose: Nose normal. Mouth/Throat: Pharynx: Oropharynx is clear. Eyes: Conjunctiva/sclera: Conjunctivae normal. Cardiovascular: Rate and Rhythm: Normal rate and regular rhythm. Heart sounds: Normal heart sounds. No murmur heard. No friction rub. No gallop. Pulmonary: Effort: No respiratory distress. Breath sounds: Normal breath sounds. No wheezing, rhonchi or rales. Abdominal: General: Bowel sounds are normal. There is no distension. Palpations: Abdomen is soft. There is no mass. Tenderness: There is no abdominal tenderness. There is no guarding or rebound. Genitourinary: Comments: Rectal exam on 12/20 with brown stools, external hemorrhoids that are not irritated, mildlydecreased tone Musculoskeletal: Right lower leg: No edema. Left lower leg: No edema. Skin: Coloration: Skin is not jaundiced or pale. Findings: No bruising, erythema or rash. Neurological: General: No focal deficit present. Mental Status: She is alert. LABS: I have personally reviewed and interpreted the following laboratory studies in the HPI and as below CBC: Recent Labs Lab Units 12/21/22 1211 12/21/22 0808 12/20/22 1734 12/18/22 0551 WBC K/cumm -- 12.9* 11.3* 10.9* HEMOGLOBIN g/dL 8.4* 6.0* 9.3* 9.6* HEMATOCRIT % 26.7* 19.3* 29.5* 30.6* MCV fL -- 95.5 95.8 95.3 PLATELETS K/cumm -- 361 334 316 Recent Labs Lab Units 12/21/22 0808 12/20/22 1734 12/18/22 0551 FERRITIN ng/mL 645* -- -- MCV fL 95.5 95.8 95.3 BMP: Recent Labs Lab Units 12/21/22 1140 12/21/22 0808 12/21/22 0746 12/18/22 0749 12/18/22 0551 12/17/22 0718 12/17/22 0602 SODIUM mmol/L -- 139 -- -- 140 -- 142 POTASSIUM PLASMA mmol/L -- 4.9 -- -- 4.1 -- 4.4 CHLORIDE mmol/L -- 102 -- -- 104 -- 107 CO2 mmol/L -- 22 -- -- 21* -- 24 ANIONGAP mmol/L -- 15 -- -- 15 -- 11 GLUCOSE mg/dL -- 150 -- -- 152 -- 202* POC GLUCOSE MONITOR mg/dL 237* -- 156 < > -- < > -- BUN SERUM mg/dL -- 94* -- -- 61* -- 53* CREATININE mg/dL -- 5.43* -- -- 2.37* -- 2.26* CALCIUM mg/dL -- 8.9 -- -- 9.5 -- 9.3 < > = values in this interval not displayed. LIVER: Recent Labs Lab Units 12/21/22 0808 12/18/22 0551 12/17/22 0602 AST Units/L 18 -- -- ALT Units/L 11 -- -- ALK PHOS Units/L 109 -- -- BILIRUBIN TOTAL mg/dL <0.2 -- -- ALBUMIN g/dL 2.8* 2.5* 2.7* IMAGING: Additionally, the following labs and images were reviewed and interpreted and my findings are as follows: - 11/2022 TTE with EF 65%, mod pHTN with RVSP 50, Dilated IVC - 05/2022 CT a/p non-con with nonspecific changes to the liver surface, gallbladder partially distended, no cholecystitis, no biliary duct dilation, spleen normal, atrophy of the pancreas, sigmoid diverticula, stool throughout the colon, small bowel normal, distended stomach, chronic subcu nodule in the mid abdomen slightly increased in size up to 1.3 cm OUTSIDE RECORDS: Records Review: I have personally reviewed records from [id number]. These are summarized within this note. ENDOSCOPY PROCEDURES: Reports prior, I personally reviewed the report and images as detailed below: Previous colonoscopies: - 2017 for follow up of proctitis seen on CT and possible GI bleed with Dr. Zamorano with poor prep, scope advanced to the TI. TI normal, to cecal polyps 2-3 mm removed, biopsies obtained from the rectum, medium-sized hemorrhoids Previous upper endoscopies: - 2017 for possible GI bleed - no bleeding on exam. Esophagus normal, stomach normal, small bowel normal *small bowel biopsy negative *Stomach with minimal chronic gastritis and focal atrophy, H pylori negative ASSESSMENT: Sixto Chakraborty is a 72 y.o. woman with a history of HLD, HTN, DM, HF, schizophrenia, dementia, CRI,recent hospitalization for right toe osteomyelitis d/c on dapto and flagyl is a/w reported blood instool (none here) and weakness found to have UA with pyuria started on CTX RECOMMENDATIONS: #stool with reported blood - current rectal exam is without bleeding, patient has significant comorbidity and would not recommend luminal procedures at this time unless patient is actively bleeding. Therefore I recommend the following - no signs of active bleeding over the past 24 hours, hbg in the 8s is around her baseline - stool output is green/yellow. BUN/Cr is <30. Please notify us if any signs or symptoms of active GI bleeding observed here - can transition to PO PPI BID for 8 weeks and then decrease to daily for 8 weeks. After daily dosing for 8 weeks, patient can try stopping the PPI. If the patient is unable to stop the PPI then please place the patient back on PPI and have patient follow up with GI outpatient for additional recommendations - hemorrhoid care as ordered - patient currently has a diet ordered, can continue for now as no procedure is not planned unless her clinical course were to change #anemia - her baseline looks to be in the eights dating back to 2019 - ferritin is 645, prior TIBC is low, this is most consistent with anemia of chronic disease - based on this she does not appear to need ongoing iron supplementation # UTI and osteomyelitis - being managed by ID, appreciate their care #Polyp surveillance - she appears to have significant comorbidity at this time that would outweigh the benefit of ongoing colonoscopy for polyp surveillance. However should her clinical course changeplease have her primary care provider referred her to Gastroenterology for consideration of colonoscopy for polyp surveillance. I have discussed the above recommendations and their risks, benefits, and alternatives, with the patient and any family present, and all agreed with the plan. All questions were answered. The patientconfirmed understanding of the plan and next steps. Thank you for allowing me to participate in the care of this patient. We will sign-off. Please reconsult should there be any concern of active GIB Please do not hesitate to contact me with further questions. Kim Looney MD Voice recognition software ([employer]) was used to complete this document. Despite proofreading, supervisor hydrochloric area variances and typographical errors may occur. * Barb Webb MD - 12/21/2022 12:54 PM CDT HOSPITALIST PROGRESS NOTE PCP: Cherelle Corcoran [phone] Admit Date: 12/20/2022 5:31 AM LOS: 1 CHIEF COMPLAINT/ BRIEF HOSPITAL COURSE Fatigue and weakness This is a 72-year-old black female was admitted secondary to fatigue and weakness. In the emergencydepartment patient was found to have what appeared to be a GI bleed, possible osteomyelitis of the right 1st great toe INTERVAL HISTORY Patient is doing pretty well this morning. Dr. Webb obtained a consent for blood transfusion. This was because hemoglobin appeared to have dropped from over 9-6.0. Repeat CBC was ordered stat andhappily did not show that severe decline in hemoglobin. Patient herself remains incredibly weak. She was unable to fully sign her name and can only make anex. I had asked nursing to come in witness this to ensure that there is no foul play suspected REVIEW OF SYSTEMS Positive for weakness EXAM Vitals: 12/21/22 0855 BP: 136/60 Pulse: (!) 130 Resp: Temp: SpO2: Constitutional: Patient appears well-developed. She is obese. She is ill- appearing. Previous notes state that she is nonverbal, but she was able to communicate with me. She sounds very weak and tired HENT: Head: Normocephalic and atraumatic. Nose: Nose normal. Mouth/Throat: Oropharynx is clear and moist. Eyes: Conjunctivae and EOM are normal. Pupils are equal, round, and reactive to light. Neck: Normal range of motion. Neck supple. No tracheal deviation present. No thyromegaly present. Cardiovascular: Normal rate, regular rhythm and normal heart sounds. Pulmonary/Chest: Effort normal and breath sounds normal. No respiratory distress. No wheezes. No rales. Abdominal: Soft. Bowel sounds are normal. No distension. There is no tenderness. Musculoskeletal: Positive for swelling bilaterally. Edema in the legs bilaterally-1+. Patient has wound on the right hallux Neurological: Patient is alert and oriented to person, place, and time. Patient displays normal reflexes. No cranial nerve deficit. Patient profound weakness. She can barely corporate travel expert a pen. She is unableto write her name. Mild tremors when holding utensils Skin: Skin is warm and dry. No rash noted. Psychiatric: Normal mood and affect. Behavior is normal. DATA Vitals: 12/20/22 1933 12/20/22 2315 12/21/22 0717 12/21/22 0855 BP: 158/61 139/64 116/63 136/60 BP Location: Right arm Patient Position: Pulse: 86 71 65 (!) 130 Resp: 18 18 17 Temp: 36.8 ??C (98.3 ??F) 37 ??C (98.6 ??F) 37.1 ??C (98.8 ??F) TempSrc: Oral Oral Oral SpO2: 94% 95% 94% Weight: Height: I/O last 2 completed shifts: In: 120 [P.O.:120] Out: 600 [Urine:600] I/O this shift: In: - Out: 50 [Urine:50] LDA: Peripheral IV 12/19/22 22 G Posterior;Right Hand (Active) Placement Date: 12/19/22 Placed by External Staff?: Other hospital Type: Angiocath Size (Gauge): 22G Location Orientation: Posterior;Right Location: Hand Number of days: 2 PICC Single Lumen 11/11/22 Non-tunneled Power Left Brachial;Upper arm (Active) Placement Date/Time: 11/11/22 1310 Placed by External Staff?: Other hospital Catheter Time Out Checklist Completed: Yes Hand Hygiene Performed: Yes Site Prep: Chlorhexidine Site Prep Agent has Completely Dried Before Insertion: Yes All 5 Steril... Number of days: 39 Urethral Catheter Double-lumen;Non-latex (Active) Placement Date/Time: 12/20/22 2200 Inserted by: Salvador Smith RN Catheter Type: Double-lumen;Non-latex Tube Size (Fr.): 16 Fr Catheter Balloon Size: 10 mL Urine Returned: Yes Number of days: 0 24hr Min/Max: Temp Min: 36.7 ??C (98.1 ??F) Max: 37.1 ??C (98.8 ??F) Pulse Min: 65 Max: 130 BP Min: 116/63 Max: 158/61 Resp Min: 17 Max: 18 SpO2 Min: 91 % Max: 95 % CURRENT LAB RESULTS Recent Results (from the past 12 hour(s)) POCT glucose Collection Time: 12/21/22 4:15 AM Result Value Ref Range Glucose, POC 186 70 - 199 mg/dL POCT glucose Collection Time: 12/21/22 7:46 AM Result Value Ref Range Glucose, POC 156 70 - 199 mg/dL Comprehensive metabolic panel Collection Time: 12/21/22 8:08 AM Result Value Ref Range Sodium 139 135 - 145 mmol/L Potassium, pl 4.9 3.3 - 4.9 mmol/L Chloride 102 97 - 110 mmol/L CO2 22 22 - 32 mmol/L Anion gap 15 2 - 15 mmol/L BUN 94 (H) 6 - 25 mg/dL Creatinine 5.43 (H) 0.60 - 1.10 mg/dL Glucose 150 70 - 199 mg/dL Calcium 8.9 8.5 - 10.3 mg/dL Bilirubin, total <0.2 0.1 - 1.2 mg/dL Protein, pl 7.4 6.5 - 8.5 g/dL Albumin 2.8 (L) 3.5 - 5.0 g/dL Alk phos 109 40 - 130 Units/L ALT 11 7 - 45 Units/L AST 18 10 - 45 Units/L Erythrocyte sedimentation rate Collection Time: 12/21/22 8:08 AM Result Value Ref Range Erythrocyte sedimentation rate >150 (H) 1 - 30 mm/hr CRP (acute phase) Collection Time: 12/21/22 8:08 AM Result Value Ref Range CRP 29.4 (H) <=10.0 mg/L CBC without differential Collection Time: 12/21/22 8:08 AM Result Value Ref Range WBC 12.9 (H) 3.8 - 9.9 K/cumm Hgb 6.0 (Critical) 11.9 - 15.5 g/dL Hct 19.3 (L) 35.6 - 45.5 % Plt 361 150 - 400 K/cumm MPV 11.5 9.1 - 12.3 fL RBC 2.02 (L) 3.90 - 5.20 M/cumm MCV 95.5 81.3 - 96.4 fL MCH 29.7 27.1 - 33.3 pg MCHC 31.1 (L) 32.3 - 35.7 g/dL RDW CV 16.2 (H) 11.1 - 14.9 % RDW SD 56.9 (H) 35.7 - 48.1 fL NRBC abs 0.00 0.00 - 0.01 K/cumm Ferritin Collection Time: 12/21/22 8:08 AM Result Value Ref Range Ferritin 645 (H) 15 - 150 ng/mL Bilirubin, direct Collection Time: 12/21/22 8:08 AM Result Value Ref Range Bilirubin, direct <0.2 0.1 - 0.3 mg/dL eGFR Collection Time: 12/21/22 8:08 AM Result Value Ref Range eGFR 8 mL/min/1.73 m2 POCT glucose Collection Time: 12/21/22 11:40 AM Result Value Ref Range Glucose, POC 237 (H) 70 - 199 mg/dL Hemoglobin and hematocrit Collection Time: 12/21/22 12:11 PM Result Value Ref Range Hgb 8.4 (L) 11.9 - 15.5 g/dL Hct 26.7 (L) 35.6 - 45.5 % MEDICATIONS FOR CURRENT ENCOUNTER Scheduled Meds: amLODIPine, 10 mg, oral, Nightly [Held by Provider] atorvastatin, 20 mg, oral, Nightly benztropine, 1.5 mg, oral, Nightly carvediloL, 6.25 mg, oral, BID with meals (bkfst, dinner) cefTRIAXone, 1,000 mg, intravenous, Q24H SOL DAPTOmycin, 350 mg, intravenous, Q48H ferrous sulfate, 65 mg of elemental iron, oral, Daily with breakfast furosemide, 60 mg, oral, BID heparin, 5,000 Units, subcutaneous, Q8H SOL hydrocortisone, 25 mg, rectal, BID insulin glargine, 5 Units, subcutaneous, Nightly insulin lispro, 0-5 Units, subcutaneous, Q4H SOL metroNIDAZOLE, 500 mg, oral, TID pantoprazole, 40 mg, intravenous, BID pregabalin, 75 mg, oral, Nightly sodium chloride 0.9%, 0.5-20 mL, intra-catheter, Q8H SOL Continuous Infusions: PRN Meds:. acetaminophen, 650 mg albuterol HFA, 2 puff sodium chloride 0.9%, 30 mL dextrose, 15 g OR dextrose, 250 mL glucagon, 1 mg ondansetron ODT, 4 mg OR ondansetron, 4 mg phenylephrine 0.25%-mineral oil 14%-petrolatum 74.9%, prochlorperazine, 5 mg OR prochlorperazine, 5 mg ramelteon, 8 mg senna-docusate, 1 tablet sodium chloride 0.9%, 0.5-20 mL Diet: Dietary Orders (From admission, onward) Start Ordered 12/20/22 2100 Bedtime snack At bedtime Comments: If bedtime BG is less than 100mg/dl, give patient a 15 gram carbohydrate snack. 12/20/22 1118 12/20/22 0548 Adult Diet Restricted; Consistent Carb 1600 chanelle Diet effective now Question Answer Comment ([facility]) Diet type Restricted Diabetic: Consistent Carb 1600 chanelle 12/20/22 0554 All labs and images done in past 24 hours have been reviewed and addressed by me ASSESSMENT AND PLAN All Diagnosis Present on Admission Unless Otherwise Stated: Principal Problem: GI bleed Active Problems: Schizoaffective disorder, bipolar type ([facility]) ([facility]) Type 2 diabetes mellitus with diabetic neuropathy, with long-term current use of insulin ([facility]) ([facility]) Hypertension associated with diabetes ([facility]) Hyperlipidemia associated with type 2 diabetes mellitus ([facility]) 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 2 diabetes mellitus ([facility]) ([facility]) Late onset Alzheimer's dementia without behavioral disturbance ([facility]) Anemia Weakness Osteomyelitis of great toe of right foot ([facility]) ([facility]) CLEMENTE (acute kidney injury) ([facility]) ([facility]) Bandemia Possible GI bleed -GI consulted concerning, positive FOB , could be gastritis or esophagitis -Protonix and ferrous sulfate -blood consent has been signed on seven to -was very concerned about finding a hemoglobin of 6.0 on the morning of seven two. Repeat showed improvement at 8.4 Normocytic Anemia likely d/t GI bleed could be CKD, possible iron deficiency -H & H 9.6 / 30.6, No treatment implemented -Monitor closely repeat CBC q 6 hr -Continue to monitor closely and repeat labs in a.m -appears to be 8.4 in the morning 7.2. Nursing does report some dark stools Generalized weakness and fatigue, possibly d/t GI Bleed -Could be chronic, physically deconditioned, or progression of disease -Fall and safety precaution -PT/OT -will ask isaiahwallow evaluation Osteomyelitis right first great toe -Per note refused previous recommendation for surgery, requested second opinion -Wound and ID consulted -Continue Dapto and Flagyl until 12/23/22 -Podiatry has been consulted - Leukocytosis likely d/t suspect UTI, Osteomyelitis -WBC 10.9, will request blood cultures and UA -Monitor and repeat labs in am -leukocytosis is 12.9 on seven to CHF not in exacerbation -On 12/08/22 EF 65 %. -Continue Coreg 6.225 mg po bid Dementia -Fall / safety DMT2 uncontrolled -Glucose 226, fingerstick AC/HS SSI lantus CLEMENTE on CKD -BUN 61, Video Manager 2.37, GFR 21 -Will hold statin -Nephrology consulted HLD -Held Lipitor d/t elevated Video Manager HTN uncontrolled B/P 162/69 -Continue Norvasc 10 mg po HS Schizophrenia with movement -Continue Risperdal and cogentin DVT Prophylaxis -Heparin Medical Decision Making Complexity: High Consulting physicians: Treatment Team: Consulting Physician: Ganesh Urrutia MD; ConsultingPhysician: En Chaudhary MD; Consulting Physician: Kim Looney MD; Consulting Physician: Jimbo Strauss MD; Consulting Physician: Portillo Marin DPM Disposition: Patient remains very weak. Prognosis is guarded. Will be here throughout the weekend likely for the next few days Code status: Full Code Voice recognition software MMTragara Fluency Direct was used dictate and transcribe this document. Safety Companion variances may occur. Despite proofreading, typographical errors may occur. Barb Webb MD. HOSPITALIST 12/21/2022 12:54 PM * En Chaudhary MD - 12/21/2022 10:00 AM CDT Images from the original note were not included. Infectious Disease Progress Note Sixto Chakraborty Admit Date: 12/20/2022 5:31 AM 12/21/2022 Hospital Day: 2 Requesting provider: Edmond Lara MD Reason for Consultation: osteomyelitis, UTI Subjective: Afebrile. On room air. Denies pain. Appetite is fair. Joy intact. ROS: Denies V/D/SOB/cough/rashes +nausea Anti-infectives (From admission, onward) Start Dose/Rate Route Frequency Ordered Stop 12/20/22 1045 cefTRIAXone (ROCEPHIN) 1,000 mg/10 mL in sterile water (premix) 1,000 mg 1,000 mg 600 mL/hr over 1 Minutes intravenous Every 24 hours scheduled 12/20/22 1010 12/20/22 0900 DAPTOmycin (CUBICIN) 50 mg/mL sodium chloride 0.9% 350 mg 350 mg 210 mL/hr over 2 Minutes intravenous Every 48 hours 12/20/22 0554 12/26/22 0859 12/20/22 0900 metroNIDAZOLE (FLAGYL) tablet 500 mg 500 mg oral 3 times daily 12/20/22 0554 12/24/22 0859 MEDICATIONS FOR CURRENT ENCOUNTER: Current Facility-Administered Medications Medication Dose Route Frequency Provider Last Rate Last Admin acetaminophen (TYLENOL) tablet 650 mg 650 mg oral Q4H PRN Edmond Lara MD albuterol HFA (PROVENTIL HFA,VENTOLIN HFA,PROAIR HFA) 90 mcg/actuation inhaler 2 puff 2 puff inhalation Q4H PRN (RT) Edmond Lara MD amLODIPine (NORVASC) tablet 10 mg 10 mg oral Nightly Edmond Lara MD 10 mg at 12/20/222103 [Held by Provider] atorvastatin (LIPITOR) tablet 20 mg 20 mg oral Nightly Edmond Lara MD benztropine (COGENTIN) tablet 1.5 mg 1.5 mg oral Nightly Celsa Pedraza NP 1.5 mg at 12/20/222103 Carrier Fluids for Secondary Infusion - 0.9% Sodium Chloride 30 mL intravenous PRN Celsa Pedraza NP carvediloL (COREG) tablet 6.25 mg 6.25 mg oral BID with meals (bkfst, dinner) Edmond Lara MD6.25 mg at 12/21/22 0855 cefTRIAXone (ROCEPHIN) 1,000 mg/10 mL in sterile water (premix) 1,000 mg 1,000 mg intravenous Q24H SOL Sussy Calderon DO 1,000 mg at 12/21/22 0855 DAPTOmycin (CUBICIN) 50 mg/mL sodium chloride 0.9% 350 mg 350 mg intravenous Q48H Edmond Lara MD 350 mg at 12/20/22 1001 dextrose oral liquid liquid 15 g 15 g oral Q15 Min PRN Celsa Pedraza NP Or dextrose (D10W) 10% bolus 250 mL 250 mL intravenous Q15 Min PRN Celsa Pedraza NP ferrous sulfate delayed release tablet 65 mg of elemental iron 65 mg of elemental iron oral Daily with breakfast Edmond Lara MD 65 mg of elemental iron at 12/21/22 0855 furosemide (LASIX) tablet 60 mg 60 mg oral BID Edmond Lara MD 60 mg at 12/21/22 0855 glucagon injection 1 mg 1 mg intramuscular Q30 Min PRN Celsa Pedraza NP heparin 5,000 unit/mL injection 5,000 Units 5,000 Units subcutaneous Q8H [facility] Edmond Lara MD 5,000 Units at 12/21/22 0444 hydrocortisone (ANUSOL-HC) suppository 25 mg 25 mg rectal BID Kim Looney MD 25 mg at 12/21/22 0856 insulin glargine (LANTUS, SEMGLEE) 100 unit/mL injection 5 Units 5 Units subcutaneous Nightly Celsa Pedraza NP 5 Units at 12/20/22 2103 insulin lispro (HumaLOG, ADMELOG) 100 unit/mL injection 0-5 Units 0-5 Units subcutaneous Q4H [facility] Celsa Pedraza NP 1 Units at 12/21/22 0855 metroNIDAZOLE (FLAGYL) tablet 500 mg 500 mg oral TID Edmond Lara MD 500 mg at 12/21/22 0855 ondansetron ODT (ZOFRAN-ODT) disintegrating tablet 4 mg 4 mg oral Q6H PRN Edmond Lara MD Or ondansetron (ZOFRAN) injection 4 mg 4 mg intravenous Q6H PRN Edmond Lara MD pantoprazole (PROTONIX) 4 mg/mL injection 40 mg 40 mg intravenous BID Celsa Pedraza NP 40mg at 12/21/22 0855 phenylephrine 0.25%-mineral oil 14%-petrolatum 74.9% ointment rectal QID PRN Kim Looney MD pregabalin (LYRICA) capsule 75 mg 75 mg oral Nightly Edmond Lara MD 75 mg at 12/20/22 2104 prochlorperazine (COMPAZINE) tablet 5 mg 5 mg oral Q6H PRN Celsa Pedraza NP Or prochlorperazine (COMPAZINE) injection 5 mg 5 mg intravenous Q6H PRN Celsa Pedraza NP ramelteon (ROZEREM) tablet 8 mg 8 mg oral Nightly PRN Edmond Lara MD senna-docusate (PERICOLACE) 8.6-50 mg per tablet 1 tablet 1 tablet oral BID PRN Edmond Lara MD sodium chloride 0.9% flush 0.5-20 mL 0.5-20 mL intra-catheter Q8H SOL Celsa Pedraza NP 10 mL at 12/21/22 0445 sodium chloride 0.9% flush 0.5-20 mL 0.5-20 mL intra-catheter PRN Celsa Pedraza NP Objective: Vitals: 12/20/22 1933 12/20/22 2315 12/21/22 0717 12/21/22 0855 BP: 158/61 139/64 116/63 136/60 BP Location: Right arm Patient Position: Pulse: 86 71 65 (!) 130 Resp: 18 18 17 Temp: 36.8 ??C (98.3 ??F) 37 ??C (98.6 ??F) 37.1 ??C (98.8 ??F) TempSrc: Oral Oral Oral SpO2: 94% 95% 94% Weight: Height: Temp (24hrs), Av.9 ??C (98.5 ??F), Min:36.7 ??C (98.1 ??F), Max:37.1 ??C (98.8 ??F) Height: 157.5 cm (5' 2 ) Weight: 67.5 kg (148 lb 13 oz) Intake/Output Summary (Last 24 hours) at 12/21/2022 1000 Last data filed at 12/21/2022 0600 Gross per 24 hour Intake 120 ml Output 600 ml Net -480 ml Exam: General: no acute distress HEENT: dry mucus membranes Heart: RRR, no murmurs Lungs: clear to ausculation bilaterally, no wheezes or crackles Abdomen: soft, non-tender, non-distended, + bowel sounds Extremities: no LE edema; R great toe edema with ulcer Skin: no rash Neuro: sleeping, briefly woke to voice and then went back to sleep [facility] 12/08 Lab: Reviewed. Recent Labs Lab Units 12/21/22 0808 12/21/22 0746 12/21/22 0415 12/18/22 0749 12/18/22 0551 12/17/22 0718 12/17/22 0602 SODIUM mmol/L 139 -- -- -- 140 -- 142 POTASSIUM PLASMA mmol/L 4.9 -- -- -- 4.1 -- 4.4 CHLORIDE mmol/L 102 -- -- -- 104 -- 107 CO2 mmol/L 22 -- -- -- 21* -- 24 ANIONGAP mmol/L 15 -- -- -- 15 -- 11 GLUCOSE mg/dL 150 -- -- -- 152 -- 202* POC GLUCOSE MONITOR mg/dL -- 156 186 < > -- < > -- BUN SERUM mg/dL 94* -- -- -- 61* -- 53* CREATININE mg/dL 5.43* -- -- -- 2.37* -- 2.26* CALCIUM mg/dL 8.9 -- -- -- 9.5 -- 9.3 ALBUMIN g/dL 2.8* -- -- -- 2.5* -- 2.7* ALK PHOS Units/L 109 -- -- -- -- -- -- ALT Units/L 11 -- -- -- -- -- -- AST Units/L 18 -- -- -- -- -- -- BILIRUBIN TOTAL mg/dL <0.2 -- -- -- -- -- -- < > = values in this interval not displayed. Recent Labs Lab Units 12/20/22 1734 12/18/22 0551 12/17/22 0602 WBC K/cumm 11.3* 10.9* 10.7* HEMOGLOBIN g/dL 9.3* 9.6* 8.8* HEMATOCRIT % 29.5* 30.6* 28.5* PLATELETS K/cumm 334 316 314 [facility] - [phone] 12/19 urine cx (from [facility]); ngtd 12/16 CK 180 12/20 urine cx: pending 12/20 blood cx: pending Assessment: 72 y.o. femalewith past medical history of CHF, DM (A1C 7.1 on 11/30), arthritis, dementia, schizophrenia, CKD, neuropathy, HLD, HTN and depression, presented to [facility] from [facility] as transfer for GI eval. R great toe osteomyelitis, currently on dapto/Flagyl until 12/23 Possible UTI GI bleed Acute on CKD DM with neuropathy Plan: -cont IV ceftriaxone for possible UTI -cont IV dapto and Flagyl until 12/23 -check CK for Mondays while on IV dapto until 12/23 -We called [facility] and urine cx was sent out and may take at least 1-2 days to result; will follow up on Thursday -GI consulted -Nephrology consulted -Follow CBC, CMP and temps -Supportive care I personally spent a portion of this patient encounter with AUTOMATION ARCHITECT. I fully performed the assessment. Iagree with the impression and plan and have made adjustments as needed. I spent 10 minutes of non overlapping time in managing the patient independent from AUTOMATION ARCHITECT today. JARAD Chavez MD [place] [facility] [phone] For weekend coverage: [facility] [phone] documented in this encounter H&P Notes * Celsa Pedraza NP - 12/20/2022 8:01 AM CDT Images from the original note were not included. History and Physical Date of Service: 12/20/2022 Primary Care Physician: Cherelle Corcoran MD [phone] Chief of Compliant: Fatigue and weakness SUBJECTIVE: Patient is a 72 y.o. female with a PMHx significant for Arthritis, CHF, Dementia, Depression, Diabetic neuropathy, HLD, HTN, Osteomyelitis, CKD, Schizophrenia, and DMT2. Presents to the ED with a chief complaint of fatigue and weakness. HPI: 72 y/o female pt presented to ED increased fatigue and weakness. Patient is currently on unit, No family member present. Pt is non-verbal does and not follow commands. PICC line. She does open her eyes when her name was called. Medical history obtained via chart review She was just discharge yesterday from [facility], resuming [facility] home infusion and home health nurse IV abt(12/23) /PT/OT . Was at [facility] in [place], [place]. It is reported patient brought back to ED last night due to daughter noticed she was more tired and weak. Unable to get up and walk. Has trace blood in BMs. Hgb stable per OSH ED provider. CT shows esophagitis and gastritis. They have no GI luncheonette operator there. Also has a UTI. WBC in urine and cystitis on CT. Osteo to R great toe, at this time swollen, with no odor or drainage noted. Per note: On 12/08/22 Evaluated by Podiatry for evaluation of right hallux osteomyelitis. Podiatry 11/07 during previous admission where amputation of right hallux was discussed but patient and family deferred per note f/u OSH This patient's past medical, surgical, social, allergic, and family history were reviewed at bedside and are available below. Past Medical History: Diagnosis Date Arthritis CHF (congestive heart failure) ([facility]) (HCC) Dementia ([facility]) Depression Diabetic neuropathy ([facility]) Hyperlipidemia Hypertension Movement disorder Osteomyelitis ([facility]) Renal disorder Schizophrenia ([facility]) Type 2 diabetes mellitus ([facility]) Past Surgical History: Procedure Laterality [...] or shortness of breath 8.5 g 0 amino acids-protein hydr-fiber (Pro-Stat Renal Care) 15-100 gram-kcal/30 mL liquid Take 30 mL by mouth 2 (two) times a day amLODIPine (NORVASC) 10 mg tablet Take 1 tablet (10 mg total) by mouth nightly 30 tablet 1 amLODIPine (NORVASC) 10 mg tablet Take 1 tablet (10 mg total) by mouth nightly 30 tablet 11 ascorbic acid 500 mg tablet,chewable Take 1 tablet/chew tab (500 mg total) by mouth 2 (two) times aday aspirin 81 mg chewable tablet Take 1 tablet (81 mg total) by mouth daily 30 tablet 11 atorvastatin (LIPITOR) 20 mg tablet Take 1 tablet (20 mg total) by mouth nightly benztropine (COGENTIN) 1 mg tablet Take 1.5 tablets (1.5 mg total) by mouth nightly 45 tablet 0 bisacodyL (DULCOLAX) 10 mg suppository Insert 1 suppository (10 mg total) into the rectum daily as needed for constipation bisacodyL (FLEET-BISACODYL) 10 mg/30 mL enema Insert 30 mL (10 mg total) into the rectum daily as needed for constipation (if no results 24 hours after suppository) carvediloL (COREG) 6.25 mg tablet Take 1 tablet (6.25 mg total) by mouth 2 (two) times a day with meals 60 tablet 11 conner.stocking,thigh,reg,med misc Wear as much as possible 2 each 1 DAPTOmycin (CUBICIN) 50 mg/mL injection Infuse 7.4 mL (370 mg total) into a venous catheter every other day for 7 days 100 mL 0 epoetin isaiah-epbx (RETACRIT) (10,000 unit/mL) solution Inject 1 mL (10,000 Units total) under the skin once a week famotidine (PEPCID) 10 mg tablet Take 1 tablet (10 mg total) by mouth daily ferrous sulfate 325 mg (65 mg of elemental iron) tablet Take 1 tablet (325 mg total) by mouth 2 (two) times a day 60 tablet 1 flash glucose scanning reader (FreeStyle Madhav 2 [place]) misc Use to continually monitor glucose 1 each 0 flash glucose sensor (FreeStyle Madhav 2 Sensor) kit Use to continually monitor glucose, change every 14 days 6 kit 3 furosemide (LASIX) 20 mg tablet Take 3 tablets (60 mg total) by mouth 2 (two) times a day 180 tablet 11 insulin glargine 100 unit/mL (3 mL) pen [...] 12 units BG >400 = call MD insulin lispro (HumaLOG, ADMELOG) 100 unit/mL pen for injection Inject 7 Units under the skin 3 (three) times a day before meals plus sliding scale lidocaine (ASPERCREME) 4 % adhesive patch,medicated Place 1 patch on the skin daily to lower back magnesium citrate solution Take 296 mL by mouth daily as needed (for constipation if no results after enema) metroNIDAZOLE (FLAGYL) 500 mg tablet Take 1 tablet (500 mg total) by mouth 3 (three) times a day for 13 days 39 tablet 0 multivitamin with minerals tablet Take 1 tablet by mouth daily polyethylene glycol (MIRALAX) 17 gram packet Take 1 packet (17 g total) by mouth daily as needed for constipation pregabalin (LYRICA) 75 mg capsule Take 1 capsule (75 mg total) by mouth nightly 30 capsule 0 risperiDONE (RisperDAL) 2 mg tablet Take 1 tablet (2 mg total) by mouth nightly 30 tablet 0 Saccharomyces boulardii (FLORASTOR) 250 mg capsule Take 1 capsule (250 mg total) by mouth 2 (two) times a day while receiving antibiotic therapy vancomycin (VANCOCIN) 1,000 mg injection Continue until 12/23 100 mL 0 No Known Allergies Per chart review no known allergies, pt current nonverbal Social History Tobacco Use Smoking status: Never Smokeless tobacco: Never Substance and Sexual Activity Drug use: Never Sexual activity: Defer Alcohol Use: Not At Risk (12/06/2022) AUDIT-C Frequency of Alcohol Consumption: Never Average Number of Drinks: Patient does not drink Frequency of Binge Drinking: Never Family History Problem Relation Age of Onset Stomach cancer Father Review of Systems Review of Systems Unable to perform ROS: Dementia Nonverbal OBJECTIVE: Vitals: Most Recent : Vitals: 12/20/22 0530 12/20/22 0532 12/20/22 0815 BP: 149/66 162/69 BP Location: Right arm Patient Position: Lying Pulse: 71 70 Resp: 18 18 Temp: 36.9 ??C (98.4 ??F) 36.5 ??C (97.7 ??F) TempSrc: Oral Oral SpO2: 95% 95% Weight: 67.5 kg (148 lb 13 oz) Height: 157.5 cm (5' 2 ) Physical Exam: Physical Exam Vitals reviewed. Constitutional: Appearance: She is well-developed and well-groomed. She is obese. She is ill-appearing. Comments: Alert to name being called HENT: Head: Normocephalic. Right Ear: External ear normal. Left Ear: External ear normal. Nose: Nose normal. Eyes: General: Lids are normal. Right eye: No discharge. Left eye: No discharge. Conjunctiva/sclera: Conjunctivae normal. Cardiovascular: Pulses: Normal pulses. Heart sounds: Normal heart sounds. Pulmonary: Effort: Pulmonary effort is normal. Breath sounds: Normal breath sounds. Abdominal: General: Bowel sounds are normal. Palpations: Abdomen is soft. Tenderness: There is no abdominal tenderness. There is no guarding. Musculoskeletal: General: Swelling present. Normal range of motion. Cervical back: Full passive range of motion without pain and normal range of motion. Right lower leg: Edema present. Left lower leg: Edema present. Feet: Skin: General: Skin is warm. Neurological: General: No focal deficit present. Mental Status: She is disoriented. Sensory: No sensory deficit. Motor: Weakness present. Psychiatric: Attention and Perception: She is inattentive. Mood and Affect: Mood normal. Speech: She is noncommunicative. Behavior: Behavior is uncooperative. Behavior is not agitated or aggressive. Cognition and Memory: Cognition is impaired. Memory is impaired. Judgment: Judgment is impulsive. Vitals: 12/20/22 0530 12/20/22 0532 12/20/22 0815 BP: 149/66 162/69 BP Location: Right arm Patient Position: Lying Pulse: 71 70 Resp: 18 18 Temp: 36.9 ??C (98.4 ??F) 36.5 ??C (97.7 ??F) TempSrc: Oral Oral SpO2: 95% 95% Weight: 67.5 kg (148 lb 13 oz) Height: 157.5 cm (5' 2 ) No intake or output data in the 24 hours ending 12/20/22 1152 Lab/Radiology/Diagnostic Review: Recent Results (from the past 24 hour(s)) POCT glucose Collection Time: 12/20/22 5:51 AM Result Value Ref Range Glucose, POC 226 (H) 70 - 199 mg/dL Transthoracic Echo (TTE) Complete W Doppler/CF Result Date: 12/08/2022 Narrative: [place] [address] Echocardiogram Report Patient Name: SIXTO CHAKRABORTY L : 1950 Study Date: 12/08/2022 2:40:12 PM Gender: F Tech: [place] Location: [id number] Ref.Provider: HEATHER LOU Height(Cm): 156 BSA: 1.85 Weight(Kg): 79 Heart Rate: 71 BP: 128/66 Quality: Good Order Provider: HEATHER LOU Procedures: Echocardiographic Report: Transthoracic echocardiogram with complete 2D, M-Mode, and color Doppler examination. Indications: Congestive Heart Failure. Measurements:2D/M Mode Doppler Measurement Value Normal Range Measurement Value Normal Range EF Teich 2D 61.6 [ 55.0 - 70.0 ] percent ALEXEY Vmax 2.13 [ 2.00 - 4.00 ] cm2 EF Mod 4C 65.3 [ 55.0 - 70.0 ] percent AV Mean PG 7 [ 2 - 4 ] mmHg LVIDd 2D 4.65 [ 3.90 - 5.30 ] cm AV Peak Leonard 1.86 [ 1.00 - 1.70 ] m/s LVIDs 2D 3.12 [ 2.30 - 3.90 ] cm AV VTI 40.64 cm LVPWd 2D 0.85 [ 0.60 - 1.00 ] cm LVOT Diam 1.85 [ 1.70 - 2.10 ] cm IVSd 2D 0.70 [ 0.60 - 0.90 ] cm LVOT Peak Leonard 1.46 [ 0.70 - 1.10 ] m/s LA Dimension MM 3.26 [ 2.70 - 3.80 ] cm LVOT VTI 30.19 [ 20.00 - 30.00 ] cm AoR Diam MM 2.57 [ 2.60 - 3.70 ] cm MV E Peak Leonard 1.49 [ 0.60 - 1.30 ] m/s LA Volume Index 24.68 [ 16.00 - 28.00 ] cc/m2 MV A Peak Leonard 1.26 [ 1.00 - 1.20 ] m/s ACS MM 1.56 cm MV Mean PG 3 [ <= 5 ] mmHg MV PHT 72 [ 20 - 100 ] msec MVA 3.10 MV Decel Time 225 [ 104 - 258 ] msec PV Peak Leonard 1.30 [ 0.40 - 0.80 ] m/s TR Peak Leonard 3.76 [ 1.00- 2.80 ] m/s TR Peak PG 57 mmHg E' 0.10 E/E' 14.00 Measurement Value Normal Range Measurement Value Normal Range 2D/M Mode Doppler - Findings: Atrial Septum: Normal atrial septum. Left Ventricle: Normal left ventricular size. Normal left ventricular systolic function with no focal wall motion abno rmalities. Ejection fraction is measured at 65 %. Left Atrium: The left atrium is normal in size. Right Ventricle: Normal right ventricular size. Normal right ventricular systolic function. Right Atrium: The right atrium is normal in size. Aortic Valve: Normal structure of the aortic valve. Mitral Valve: Normal structure of the mitral valve. Pulmonic Valve: Normal structure of the pulmonic valve.Tricuspid Valve: Normal structure of the tricuspid valve. [...] mmHg). Electronically Signed By: Audie Gould MD, [facility] 2022-12-08 16:07:58 CDT CC: CC: XR Chest PA Lateral 2 Views Result Date: 12/07/2022 Narrative: EXAMINATION: XR CHEST PA LATERAL 2 VIEWS [...] is in the distal superior vena cava. Impression: Tiny right effusion. Electronically signed by: Arabella [...] Rate: 68 bpm RR Interval: 873 msec WV Interval: 175 msec QRS Duration: 73 msec QT Interval: 422 msec QTC Interval: 440 msec P-R-T [place]: 98 - 20 - 20 degrees SINUS RHYTHM LOW QRS VOLTAGE IN PRECORDIAL LEADS [QRS DEFLECTION < 1.0 mV IN CHEST LEADS] BORDERLINE ECG Compared to previous ECG the low- voltage is new Electronically Signed By: Audie Gould MD, [facility] Transthoracic Echo (TTE) Complete W Doppler/CF Result Date: 12/01/2022 Narrative: Adult Echocardiogram + + :Name: SIXTO CHAKRABORTY Study Date: 12/01/2022 Status: [facility] : : Patient Location: [address]^[id number]^Height: 62 in : : Weight: 176 lbBP: 115/62 mmHg: :: 1950 Gender: Female BSA: 1.8 m2 : :Reason For Study: Cellulitis of the Lower Extremity : :Ordering Physician: AC, : :KOREY : : : :Performed By:Mindy : :SHEA Thayer : + + Procedure A two-dimensional transthoracic echocardiogram with color flow and Doppler was performed. Left Ventricle Left ventricular chamber size is normal. Left ventricular systolic function appears to be normal. No obvious regional wall motion abnormalities noted. Technically inadequate to evaluate wall motion abnormalities. Right Ventricle The right ventricleis normal in size and function. Atria The [...] The aortic root is normal size. Pericardium There is no pericardial effusion. Diastology E/E prime ratio is >15 suggesting a high pulmonary wedgepressure and LV diastolic dysfunction. Interpretation Summary Left [...] ELECTRONICALLY VERIFIED FINAL REPORT 11/30/2022 1:13 PM - Electronically signed by Adryan POWERS T: Report ID: [id number] Reading Location: [id number] XR Chest 1 Vw Portable Result Date: [...] signed by Adryan PAZ T: Report ID: [id number] Reading Location: [id number] ASSESSMENT/PLAN: Principal Problem: GI bleed Active Problems: Anemia Weakness Osteomyelitis of great toe of right foot ([facility]) ([facility]) Bandemia Schizoaffective disorder, bipolar type ([facility]) ([facility]) Hypertension associated with diabetes (HCC) Hyperlipidemia associated with type 2 diabetes mellitus ([facility]) 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 2 diabetes mellitus ([facility]) ([facility]) Late onset Alzheimer's dementia without behavioral disturbance (HCC) Type 2 diabetes mellitus with diabetic neuropathy, with long-term current use of insulin ([facility]) (HCC) CLEMENTE (acute kidney injury) ([facility]) ([facility]) GI bleed -GI consulted concerning, positive FOB , could be gastritis or esophagitis -Protonix and ferrous sulfate Normocytic Anemia likely d/t GI bleed could be CKD, possible iron deficiency -H & H 9.6 / 30.6, No treatment implemented -Monitor closely repeat CBC q 6 hr -Continue to monitor closely and repeat labs in a.m Generalized weakness and fatigue, possibly d/t GI Bleed -Could be chronic, physically deconditioned, or progression of disease -Fall and safety precaution -PT/OT -When more alert, obtain swallow eval Osteomyelitis right first great toe -Per note refused previous recommendation for surgery, requested second opinion -Wound and ID consulted -Continue Dapto and Flagyl until 12/23/22 -Podiatry Leukocytosis likely d/t suspect UTI, Osteomyelitis -WBC 10.9, will request blood cultures and UA -Monitor and repeat labs in am CHF not in exacerbation -On 12/08/22 EF 65 %. -Continue Coreg 6.225 mg po bid Dementia -Fall / safety DMT2 uncontrolled -Glucose 226, fingerstick AC/HS SSI lantus CLEMENTE on CKD -BUN 61, Video Manager 2.37, GFR 21 -Will hold statin -Nephrology consulted HLD -Held Lipitor d/t elevated Video Manager HTN uncontrolled B/P 162/69 -Continue Norvasc 10 mg po HS Schizophrenia with movement -Continue Risperdal and cogentin DVT Prophylaxis -Heparin Full Code ESTIMATED LENGTH OF STAY: Inpatient > 2 midnights The total time spent caring for this patient was 37 minutes Reviewing labs, imaging studies, vital signs, medications and D/W RN, Voice recognition software 5min [employer] Direct was used dictate and transcribe this document. Safety Companion variances may occur. Despite proofreading, typographical errors may occur. Celsa Pedraza NP 12/20/2022 11:52 AM Cosigned by Larry Dennis MD at 12/20/2022 6:24 PM CDT Associated attestation - Larry Dennis MD - 12/20/2022 6:24 PM CDT I personally performed a substantive portion of this patient's encounter along with the nurse practitioner. I have discussed the case and reviewed the history, exam and plan. I agree with the documented findings, Patient was discharged by me recently home with daughter comes back with GI bleed. Consult GI monitor H/H Osteomyelitis on antibiotics through 12/23 daptomycin and Flagyl reconsult Infectious Disease Renal failure consult nephrology Hypertension resume antihypertensives I spent 38 minutes of non-overlapping independent time managing the patient. documented in this encounter Consult Notes * Becky De La O RN - 12/30/2022 2:00 PM CDT Images from the original note were not included. SWAT Re-evaluation Wound Consultation requested by Celsa Pedraza NP for Bilateral lower extremity Impression: POA Healed MASD to buttocks and upper inner thighs. High risk for skin breakdown and delayed wound healing due to CHF, DM, HTN, HLD, and Schizophrenia. Joy catheter is now in place. LowBraden 16. Plan: Local wound care with Barrier Creams. EHOB waffle mattress, turn/toilet q 2, Absorbent pads. Apply Protective cream to buttocks/sacrum and inner thighs BID and PRN. Goals: Pressure relief. Moisture/Incontinence management. Optimize wound healing. * Kristyn Ryder DPM - 12/22/2022 3:21 PM CDTAssociated Order(s): Consult to Podiatry Consult Reason for Consult: Right Great toe Requesting Provider: Celsa Pedraza NP Consult to Podiatry Consult performed by: Kristyn Ryder DPM Consult ordered by: Celsa Pedraza NP Reason for consult: Right great toe Assessment/Recommendations: Healing Right great toe ulcer - Continue current wound care and have her follow up with podiatry for diabetic foot care after she is discharged. Subjective Patient is a 72 y.o. female with chief complaint of right great toe ulcer present for several weeks. She complains that the toe is numb but also relates it is not painful. She stated that she had an infection but that it is getting better and she doesn't want an amputation. She reports she has been getting antibiotics for the infection and that the toe is improving. Past Medical History: Diagnosis Date Arthritis [...] or shortness of breath 8.5 g 0 amino acids-protein hydr-fiber (Pro-Stat Renal Care) 15-100 gram-kcal/30 mL liquid Take 30 mL by mouth 2 (two) times a day amLODIPine (NORVASC) 10 mg tablet Take 1 tablet (10 mg total) by mouth nightly 30 tablet 1 amLODIPine (NORVASC) 10 mg tablet Take 1 tablet (10 mg total) by mouth nightly 30 tablet 11 ascorbic acid 500 mg tablet,chewable Take 1 tablet/chew tab (500 mg total) by mouth 2 (two) times aday aspirin 81 mg chewable tablet Take 1 tablet (81 mg total) by mouth daily 30 tablet 11 atorvastatin (LIPITOR) 20 mg tablet Take 1 tablet (20 mg total) by mouth nightly benztropine (COGENTIN) 1 mg tablet Take 1.5 tablets (1.5 mg total) by mouth nightly 45 tablet 0 bisacodyL (DULCOLAX) 10 mg suppository Insert 1 suppository (10 mg total) into the rectum daily as needed for constipation bisacodyL (FLEET-BISACODYL) 10 mg/30 mL enema Insert 30 mL (10 mg total) into the rectum daily as needed for constipation (if no results 24 hours after suppository) carvediloL (COREG) 6.25 mg tablet Take 1 tablet (6.25 mg total) by mouth 2 (two) times a day with meals 60 tablet 11 conner.stocking,thigh,reg,med misc Wear as much as possible 2 each 1 DAPTOmycin (CUBICIN) 50 mg/mL injection Infuse 7.4 mL (370 mg total) into a venous catheter every other day for 7 days 100 mL 0 epoetin isaiah-epbx (RETACRIT) (10,000 unit/mL) solution Inject 1 mL (10,000 Units total) under the skin once a week famotidine (PEPCID) 10 mg tablet Take 1 tablet (10 mg total) by mouth daily ferrous sulfate 325 mg (65 mg of elemental iron) tablet Take 1 tablet (325 mg total) by mouth 2 (two) times a day 60 tablet 1 flash glucose scanning reader (FreeStyle Madhav 2 [place]) [facility] [place] Use to continually monitor glucose 1 each 0 flash glucose sensor (FreeStyle Madhav 2 Sensor) kit Use to continually monitor glucose, change every 14 days 6 kit 3 furosemide (LASIX) 20 mg tablet Take 3 tablets (60 mg total) by mouth 2 (two) times a day 180 tablet 11 insulin glargine 100 unit/mL (3 mL) pen [...] 12 units BG >400 = call MD insulin lispro (HumaLOG, ADMELOG) 100 unit/mL pen for injection Inject 7 Units under the skin 3 (three) times a day before meals plus sliding scale lidocaine (ASPERCREME) 4 % adhesive patch,medicated Place 1 patch on the skin daily to lower back magnesium citrate solution Take 296 mL by mouth daily as needed (for constipation if no results after enema) metroNIDAZOLE (FLAGYL) 500 mg tablet Take 1 tablet (500 mg total) by mouth 3 (three) times a day for 13 days 39 tablet 0 multivitamin with minerals tablet Take 1 tablet by mouth daily polyethylene glycol (MIRALAX) 17 gram packet Take 1 packet (17 g total) by mouth daily as needed for constipation pregabalin (LYRICA) 75 mg capsule Take 1 capsule (75 mg total) by mouth nightly 30 capsule 0 risperiDONE (RisperDAL) 2 mg tablet Take 1 tablet (2 mg total) by mouth nightly 30 tablet 0 Saccharomyces boulardii (FLORASTOR) 250 mg capsule Take 1 capsule (250 mg total) by mouth 2 (two) times a day while receiving antibiotic therapy vancomycin (VANCOCIN) 1,000 mg injection Continue until 12/23 100 mL 0 No Known Allergies Social History Tobacco Use Smoking status: Never Smokeless tobacco: Never Substance and Sexual Activity Drug use: Never Sexual activity: Defer Alcohol Use: Not At Risk (12/06/2022) AUDIT-C Frequency of Alcohol Consumption: Never Average Number of Drinks: Patient does not drink Frequency of Binge Drinking: Never Family History Problem Relation Age of Onset Stomach cancer Father Review of Systems: Review of Systems Skin: Positive for color change and wound. Objective Vitals: 24hr Min/Max: Temp Min: 36.3 ??C (97.4 ??F) Max: 37.2 ??C (98.9 ??F) Pulse Min: 65 Max: 75 BP Min: 124/64 Max: 136/63 Resp Min: 16 Max: 18 SpO2 Min: 94 % Max: 98 % Most Recent : Vitals: 12/22/22 1500 BP: 124/64 Pulse: 65 Resp: 16 Temp: 36.3 ??C (97.4 ??F) SpO2: 98% I/O last 2 completed shifts: In: - Out: 110 [Urine:110] No intake/output data recorded. Physicial Exam: Physical Exam Cardiovascular: Pulses: Dorsalis pedis pulses are 2+ on the right side and 2+ on the left side. Posterior tibial pulses are 1+ on the right side and 1+ on the left side. Musculoskeletal: Right foot: Deformity present. Feet: Right foot: Skin integrity: Ulcer and dry skin present. Toenail Condition: Right toenails are long. Left foot: Skin integrity: Skin integrity normal. Toenail Condition: Left toenails are long. Comments: Healing ulcer at the distal aspect of the right toe has no drainage, no bleeding and no signs of erythema. Distal aspect of the digit is brown due to use of betadine on the wound. Right hallux nail is absent. Right 4th digit has previously been amputated. Lab/Radiology/Diagnostic Review: Imaging review: I have reviewed the result(s) and agree with findings of osteomyelitis. Assessment/Plan Continue current care until wound is fully healed and patient should follow up withpodiatry after discharge for diabetic foot care and prevention of further ulceration. * Mane Nicole - 12/22/2022 3:18 PM CDTAssociated Order(s): IP CONSULT TO SPIRITUAL CARE Palliative Care Spiritual Assessment Observations: Observations: Needs, Hopes, Beliefs, and The service associate visited with the patient in the patient's room. The patient was sitting up in a chair alert and aware. No family was at bedside a the time of thevisit. What are the presenting needs? (existential and spiritual crisis being observed) PresentingNeeds: The patient presented as someone in need of pastoral presence, dialogue, and faithful discourse, The patient expressed that she was getting tired of how she has been feeling and a bit frustrated with her health journey. She is tired of feeling fatigued. . Actions/Interventions What care was provided to the patient, family, or others? Interventions: Pastoral presence, Spiritual support, Prayer, Dialogue, Scripture, and The service associate provided spiritual support through pastoral presence, song/hymnody, Scripture, dialogue, and prayer. Spiritual Care Plan The service associate plans to continue to visit the patient and explore more of her dong formation, life review, and Concerns. Interdisciplinary Insights * Deena Alvarez RN - 12/22/2022 9:30 AM CDT Images from the original note were not included. SWAT Evaluation and Wound Consultation Wound Consultation requested by Celsa Pedraza NP for Bilateral lower extremity Impression: POA MASD to buttocks and upper inner thighs. High risk for skin breakdown and delayed wound healing due to CHF, DM, HTN, HLD, and Schizophrenia. Joy catheter is now in place. Plan: Local wound care with Barrier Creams. EHOB waffle mattress, turn/toilet q 2, Absorbent pads. Nutritional supplementation to aid in wound healing. Goals: Pressure relief. Moisture/Incontinence management. Optimize wound healing. POA IAD upper medial thighs Impression: POA Right great toe dry arterial ulcer with history of osteomyelitis of the distal phalanx and small erosions of the distal tuft Plan: Betadine paint Goals: Maintain dry eschar. * Jimbo Strauss MD - 12/20/2022 2:06 PM CDT Renal Pt will be seen full not to follow CKD HTN Thanks Jimbo Strauss Office/exchange: [phone] Pager: [phone] * Jimbo Strauss MD - 12/20/2022 2:05 PM CDTAssociated Order(s): IP CONSULT TO NEPHROLOGY Renal Consultation Requested By: Celsa Pedraza NP Requested Of: Jimbo Strauss MD REASON FOR CONSULT clemente Dictating: Jimbo Strauss MD #: [id number] : 1950 CSN: [id number] Date of Admission: 12/20/2022 Date of Consult: 12/20/2022 History Of Present Illness: This is a 72 y.o. Black Or female with a past medical history for diabetes, hypertension, dementia, chronic kidney disease, PVD, schizophrenia presented with weakness, difficult time walking. Found to have trace blood in stool. Patient cannot provide much information. Has osteomyelitis right hallux. Past Medical History Pulmonary hypertension chronic kidney disease due to diabetes and/or hypertension chronic kidney disease stage IIIA Past Medical History: Diagnosis Date Arthritis CHF (congestive heart failure) ([facility]/HCC) (HCC) Dementia (HCC) Depression Diabetic neuropathy (HCC) Hyperlipidemia Hypertension Movement disorder Osteomyelitis (HCC) Renal disorder Schizophrenia (HCC) Type 2 diabetes mellitus ([facility]) Past Surgical History Past Surgical History: Procedure [...] Onset Stomach cancer Father Review of Systems unable to obtain due Medications to confusion state as listed in epic Physical Exam: Vitals: 24hr Min/Max: Temp Min: 36.5 ??C (97.7 ??F) Max: 36.9 ??C (98.4 ??F) Pulse Min: 70 Max: 71 BP Min: 149/66 Max: 162/69 Resp Min: 18 Max: 18 SpO2 Min: 95 % Max: 95 % No intake or output data in the 24 hours ending 12/20/22 1405 Wt Readings from Last 3 Encounters: 12/20/22 67.5 kg (148 lb 13 oz) 12/06/22 78.9 kg (173 lb 15.1 oz) 12/05/22 79.3 kg (174 lb 12.8 oz) @FLOWS@ Temp Av.7 ??C (98.1 ??F) Min: 36.5 ??C (97.7 ??F) Max: 36.9 ??C (98.4 ??F) BP Min: 149/66 Max: 162/69 Pulse Av.5 Min: 70 Max: 71 Resp Av Min: 18 Max: 18 SpO2 Av % Min: 95 % Max: 95 % Most Recent: Vitals: 12/20/22 0815 BP: 162/69 Pulse: 70 Resp: 18 Temp: 36.5 ??C (97.7 ??F) SpO2: 95% Physical Exam: Constitutional: Confused female well-developed, well-nourished, and in no distress. HENT: Head: Normocephalic. Eyes: Conjunctivae and EOM are normal. Pupils are equal, round, and reactive to light. No scleral icterus. Neck: Normal range of motion. Neck supple. Cardiovascular: Normal rate, regular rhythm and normal heart sounds. Pulmonary/Chest: Effort normal and breath sounds normal. Abdominal: Soft. Bowel sounds are normal. Musculoskeletal: Normal range of motion. Neurological: alert and oriented to person, does not follow any commands. Bilateral hand tremors noted. LDA: PICC Single Lumen 11/11/22 Non-tunneled Power Left Brachial;Upper arm (Active) Placement Date/Time: 11/11/22 1310 Placed by External Staff?: Other hospital Catheter Time Out Checklist Completed: Yes Hand Hygiene Performed: Yes Site Prep: Chlorhexidine Site Prep Agent has Completely Dried Before Insertion: Yes All 5 Steril... Number of days: 39 Vent settings: Hemodynamics: Lab/Radiology/Diagnostic Review: Recent Labs Lab Units 12/20/22 1221 12/18/22 0749 12/18/22 0551 12/17/22 0718 12/17/22 [...] -- -- 2.37* -- 2.26* -- 2.44* [id number] mL/min/1.73 m2 -- -- 21 -- 22 -- 21 GLUCOSE mg/dL -- -- 152 -- 202* -- 140 POC GLUCOSE MONITOR mg/dL 187 < > -- < > -- < [...] 7.9 EOS PCT % 2.4 2.5 1.9 . Problems: 1. chronic kidney disease: Stage IIIB, due to diabetes and hypertension. Creatinine is about the same. 2. Hypertension: Blood pressures we will control 3. Edema: This is much better compared to the last admission. Due to chronic kidney disease and pulmonary hypertension. 4. Anemia: Possible GI bleed. Possibly chronic kidney disease related. Possible iron deficiency. 5. Tremors: Possibly early Parkinson's. Time Spent on the evaluation process was 80 minutes Thank you for allowing me to participate in the care of this patient. If you have any questions please do not hesitate to call. DICTATION DISCLAIMER: This note is transcribed using the [employer] direct voice recognition system without human menagerie superintendent. In an effort to expedite patient care, this note has not been adjusted for typographical, grammatical, and syntax by a trained medical records custodian. Jimbo Strauss Office:[phone] Pager: [phone] * Sussy Calderon, - 12/20/2022 10:08 AM CDTAssociated Order(s): IP CONSULT TO INFECTIOUS DISEASES Images from the original note were not included. Infectious Disease Consult Note Date of Admission: 12/20/2022 Date of Consult: 12/20/2022 Patient's Primary Care Physician: Cherelle Corcoran MD Name: Sixto Chakraborty Age/: 72 y.o. 1950 Requesting provider: Edmond Lara MD Reason for Consultation: osteomyelitis, UTI History of Present Illness: Sixto Chakraborty is a 72 y.o. female with past medical history of CHF, DM (A1C 7.1 on 11/30), arthritis, dementia, schizophrenia, CKD, neuropathy, HLD, HTN and depression, presented to [facility] from [facility] for GI eval. The pt had been sleeping and briefly woke to voice but unable to provide history. History obtained per EMR. The pt had been recently admitted to [facility] form 12/06 to 12/18. She was seen by our ID service for R great toe with osteomyelitis. Pt had been noted to refuse amputation of toe at OSH on prior admission. She was d/c'd on IV dapto and Flagyl until 12/23 with PICC line. Cx grew MRSA/mixed. The pt was brought to [facility] by family for weakness and blood in stool. The pt had UA with pyuria and cx was sent. She was started on ceftriaxone. She was transferred to [facility] on 12/20.GI and nephrology were consulted. The pt was continued on dapto/Flagyl. The pt has PICC line in place. She has been afebrile. [x] COVID vaccine [x] COVID vaccine booster 1 Past Medical History: Past Medical History: Diagnosis Date Arthritis CHF (congestive heart failure) (CMS/HCC) (HCC) Dementia (HCC) Depression Diabetic neuropathy (HCC) Hyperlipidemia Hypertension Movement disorder Osteomyelitis (HCC) Renal disorder Schizophrenia (HCC) Type 2 diabetes mellitus (HCC) Past Surgical History: Past Surgical History: Procedure Laterality Date SECTION Right right foot TOE AMPUTATION Right 01/06/2020 4th toe amp/ foot debridement/ Dr. Anat Pelayo Family History: Family History Problem Relation Age of Onset Stomach cancer Father Social History: Social History Tobacco Use Smoking status: Never Smokeless tobacco: Never Substance and Sexual Activity Drug use: Never Sexual activity: Defer Alcohol Use: Not At Risk (12/06/2022) AUDIT-C Frequency of Alcohol Consumption: Never Average Number of Drinks: Patient does not drink Frequency of Binge Drinking: Never Allergies: No Known Allergies Home Medications: Medications Prior to Admission Medication Sig Dispense Refill Last Dose acetaminophen (TYLENOL) 325 mg tablet Take 2 tablets (650 mg total) by mouth every 6 (six) hours asneeded for pain albuterol HFA (ProAir HFA) 90 mcg/actuation inhaler Inhale 2 puffs every 4 (four) hours as needed for wheezing or shortness of breath 8.5 g 0 amino acids-protein hydr-fiber (Pro-Stat Renal Care) 15-100 gram-kcal/30 mL liquid Take 30 mL by mouth 2 (two) times a day amLODIPine (NORVASC) 10 mg tablet Take 1 tablet (10 mg total) by mouth nightly 30 tablet 1 amLODIPine (NORVASC) 10 mg tablet Take 1 tablet (10 mg total) by mouth nightly 30 tablet 11 ascorbic acid 500 mg tablet,chewable Take 1 tablet/chew tab (500 mg total) by mouth 2 (two) times aday aspirin 81 mg chewable tablet Take 1 tablet (81 mg total) by mouth daily 30 tablet 11 atorvastatin (LIPITOR) 20 mg tablet Take 1 tablet (20 mg total) by mouth nightly benztropine (COGENTIN) 1 mg tablet Take 1.5 tablets (1.5 mg total) by mouth nightly 45 tablet 0 bisacodyL (DULCOLAX) 10 mg suppository Insert 1 suppository (10 mg total) into the rectum daily as needed for constipation bisacodyL (FLEET-BISACODYL) 10 mg/30 mL enema Insert 30 mL (10 mg total) into the rectum daily as needed for constipation (if no results 24 hours after suppository) carvediloL (COREG) 6.25 mg tablet Take 1 tablet (6.25 mg total) by mouth 2 (two) times a day with meals 60 tablet 11 conner.stocking,thigh,reg,med misc Wear as much as possible 2 each 1 DAPTOmycin (CUBICIN) 50 mg/mL injection Infuse 7.4 mL (370 mg total) into a venous catheter every other day for 7 days 100 mL 0 epoetin isaiah-epbx (RETACRIT) (10,000 unit/mL) solution Inject 1 mL (10,000 Units total) under the skin once a week famotidine (PEPCID) 10 mg tablet Take 1 tablet (10 mg total) by mouth daily ferrous sulfate 325 mg (65 mg of elemental iron) tablet Take 1 tablet (325 mg total) by mouth 2 (two) times a day 60 tablet 1 flash glucose scanning reader (FreeStyle Madhav 2 [place]) [facility] [place] Use to continually monitor glucose 1 each 0 flash glucose sensor (FreeStyle Madhav 2 Sensor) kit Use to continually monitor glucose, change every 14 days 6 kit 3 furosemide (LASIX) 20 mg tablet Take 3 tablets (60 mg total) by mouth 2 (two) times a day 180 tablet 11 insulin glargine 100 unit/mL (3 mL) pen [...] = 12 units BG >400 = call insulin lispro (HumaLOG, ADMELOG) 100 unit/mL pen for injection Inject 7 Units under the skin 3 (three) times a day before meals plus sliding scale lidocaine (ASPERCREME) 4 % adhesive patch,medicated Place 1 patch on the skin daily to lower back magnesium citrate solution Take 296 mL by mouth daily as needed (for constipation if no results after enema) metroNIDAZOLE (FLAGYL) 500 mg tablet Take 1 tablet (500 mg total) by mouth 3 (three) times a day for 13 days 39 tablet 0 multivitamin with minerals tablet Take 1 tablet by mouth daily polyethylene glycol (MIRALAX) 17 gram packet Take 1 packet (17 g total) by mouth daily as needed for constipation pregabalin (LYRICA) 75 mg capsule Take 1 capsule (75 mg total) by mouth nightly 30 capsule 0 risperiDONE (RisperDAL) 2 mg tablet Take 1 tablet (2 mg total) by mouth nightly 30 tablet 0 Saccharomyces boulardii (FLORASTOR) 250 mg capsule Take 1 capsule (250 mg total) by mouth 2 (two) times a day while receiving antibiotic therapy vancomycin (VANCOCIN) 1,000 mg injection Continue until 12/23 100 mL 0 Review of Systems: A 10 point review of systems was obtained and negative except those mentioned in HPI MEDICATIONS FOR CURRENT ENCOUNTER: Scheduled Meds:amLODIPine, 10 mg, oral, Nightly atorvastatin, 20 mg, oral, Nightly carvediloL, 6.25 mg, oral, BID with meals (bkfst, dinner) DAPTOmycin, 350 mg, intravenous, Q48H epoetin isaiah-epbx, 10,000 Units, intravenous, Weekly famotidine, 10 mg, oral, Daily ferrous sulfate, 65 mg of elemental iron, oral, Daily with breakfast furosemide, 60 mg, oral, BID heparin, 5,000 Units, subcutaneous, Q8H SOL metroNIDAZOLE, 500 mg, oral, TID pregabalin, 75 mg, oral, Nightly sodium chloride 0.9%, 0.5-20 mL, intra-catheter, Q8H SOL Continuous Infusions: PRN Meds:. acetaminophen albuterol HFA sodium chloride 0.9% ondansetron ODT OR ondansetron prochlorperazine OR prochlorperazine deja senna-docusate sodium chloride 0.9% Vitals: 12/20/22 0530 12/20/22 0532 12/20/22 0815 BP: 149/66 162/69 BP Location: Right arm Patient Position: Lying Pulse: 71 70 Resp: 18 18 Temp: 36.9 ??C (98.4 ??F) 36.5 ??C (97.7 ??F) TempSrc: Oral Oral SpO2: 95% 95% Weight: 67.5 kg (148 lb 13 oz) Height: 157.5 cm (5' 2 ) Temp (30hrs), Av.7 ??C (98.1 ??F), Min:36.5 ??C (97.7 ??F), Max:36.9 ??C (98.4 ??F) Height: 157.5 cm (5' 2 ) Weight: 67.5 kg (148 lb 13 oz) No intake or output data in the 24 hours ending 12/20/22 1008 Exam: General: no acute distress HEENT: dry mucus membranes Heart: RRR, no murmurs Lungs: clear to ausculation bilaterally, no wheezes or crackles Abdomen: soft, non-tender, non-distended, + bowel sounds Extremities: no LE edema; R great toe edema with ulcer Skin: no rash Neuro: sleeping, briefly woke to voice and then went back to sleep [facility] 12/08 Labs: Recent Labs Lab Units 12/20/22 0551 12/18/22 2050 12/18/22 1721 12/18/22 0749 12/18/22 0551 12/17/22 [...] 202* -- 140 POC GLUCOSE MONITOR mg/dL 226* 305* 247* < > -- < > -- [...] not displayed. Recent Labs Lab Units 12/18/22 0551 12/17/22 0602 12/16/22 0525 WBC K/cumm 10.9* 10.7* 11.0* HEMOGLOBIN g/dL 9.6* 8.8* 8.2* HEMATOCRIT % 30.6* 28.5* 27.0* PLATELETS K/cumm 316 314 303 [facility] - [phone] 12/19 urine cx (from [facility]); ngtd 12/16 CK 180 Assessment: 72 y.o. femalewith past medical history of CHF, DM (A1C 7.1 on 11/30), arthritis, dementia, schizophrenia, CKD, neuropathy, HLD, HTN and depression, presented to [facility] from [facility] as transfer for GI eval. R great toe osteomyelitis, currently on dapto/Flagyl until 12/23 Possible UTI GI bleed Acute on CKD DM with neuropathy Plan: -will start IV ceftriaxone for possible UTI -will cont IV dapto and Flagyl until 12/23 -will order CK for Thursday while on IV dapto until 12/23 -I called [facility] and urine cx was sent out and may take at least 1-2 days to result; will follow up on Thursday -GI consulted -Nephrology consulted -Follow CBC, CMP and temps - will check LFTs in AM -will check ESR and CRP in AM -Supportive care D/w RN. Thank you for this consultation and will continue to follow. Sussy Calderon DO, [facility] Infectious Disease Office [phone] For weekend coverage: [employer] [facility] [phone] * Kim Looney MD - 12/20/2022 8:34 AM CDTAssociated Order(s): [facility] G[facility]ology Initial Inpatient Consultation Note DEMOGRAPHICS: Patient: Sixto Chakraborty : 1950 AGE: 72 y.o. Request for consultation: Larry Dennis MD Reason for consultation: GI bleed, esophagitis, gastritis HISTORY OF PRESENT ILLNESS: The patient reports no current symptoms, including no abdominal pain. Review of chart is notable for patient being brought in for weakness and trace blood in her bowel movements. Patient does not recall seeing blood in her stools. Review of her chart suggests that she may have underlying mental status that limits her ability to accurately participate in her history taking, however at time my examshe was oriented to person and place but not to year. PAST HISTORY: Reviewed history was reviewed and is notable as documented below and in the HPI Past Medical History: Diagnosis Date Arthritis CHF [...] not drink Frequency of Binge Drinking: Never ALLERGIES & MEDICATIONS: The patient's medications and allergies were reviewed and are notable as documented below No Known Allergies HOME MEDICATIONS : acetaminophen (TYLENOL) 325 mg tablet albuterol HFA [...] flash glucose scanning reader (FreeStyle Madhav 2 [place]) [facility] [place] flash glucose sensor [...] mg capsule vancomycin (VANCOCIN) 1,000 mg injection omeprazole (PriLOSEC) 20 mg capsule Current Facility-Administered Medications: acetaminophen (TYLENOL) tablet 650 mg, 650 mg, oral, Q4H PRN, Edmond Lara MD albuterol HFA (PROVENTIL HFA,VENTOLIN HFA,PROAIR HFA) 90 mcg/actuation inhaler 2 puff, 2 puff, inhalation, Q4H PRN (RT), Edmond Lara MD amLODIPine (NORVASC) tablet 10 mg, 10 mg, oral, Nightly, Edmond Lara MD [Held by Provider] atorvastatin (LIPITOR) tablet 20 mg, 20 mg, oral, Nightly, Edmond Lara MD benztropine (COGENTIN) tablet 1.5 mg, 1.5 mg, oral, Nightly, Celsa Pedraza NP Carrier Fluids for Secondary Infusion - 0.9% Sodium Chloride, 30 mL, intravenous, PRN, Cindy Pedraza NP carvediloL (COREG) tablet 6.25 mg, 6.25 mg, oral, BID with meals (bkfst, dinner), Edmond Lara MD, 6.25 mg at 12/20/22 1001 cefTRIAXone (ROCEPHIN) 1,000 mg/10 mL in sterile water (premix) 1,000 mg, 1,000 mg, intravenous, Q24H SOL, Sussy Calderon DO, 1,000 mg at 12/20/22 1226 DAPTOmycin (CUBICIN) 50 mg/mL sodium chloride 0.9% 350 mg, 350 mg, intravenous, Q48H, Melissa Lara MD, 350 mg at 12/20/22 1001 dextrose oral liquid liquid 15 g, 15 g, oral, Q15 Min PRN OR dextrose (D10W) 10% bolus 250 mL, 250 mL, intravenous, Q15 Min PRN, Celsa Pedraza NP epoetin isaiah-epbx (RETACRIT) (10,000 unit/mL) injection 10,000 Units, 10,000 Units, intravenous, Weekly, Edmond Lara MD ferrous sulfate delayed release tablet 65 mg of elemental iron, 65 mg of elemental iron, oral, Daily with breakfast, Edmond Lara MD, 65 mg of elemental iron at 12/20/22 1001 furosemide (LASIX) tablet 60 mg, 60 mg, oral, BID, Edmond Lara MD, 60 mg at 12/20/22 1001 glucagon injection 1 mg, 1 mg, intramuscular, Q30 Min PRN, Celsa Pedraza NP heparin 5,000 unit/mL injection 5,000 Units, 5,000 Units, subcutaneous, Q8H [facility], Edmond Lara MD, 5,000 Units at 12/20/22 1226 insulin glargine (LANTUS, SEMGLEE) 100 unit/mL injection 5 Units, 5 Units, subcutaneous, Nightly, Celsa Pedraza NP insulin lispro (HumaLOG, ADMELOG) 100 unit/mL injection 0-5 Units, 0-5 Units, subcutaneous, Q4H [facility], Celsa Pedraza NP, 1 Units at 12/20/22 1222 metroNIDAZOLE (FLAGYL) tablet 500 mg, 500 mg, oral, TID, Edmond Lara MD, 500 mg at 12/20/22 1001 ondansetron ODT (ZOFRAN-ODT) disintegrating tablet 4 mg, 4 mg, oral, Q6H PRN OR ondansetron (ZOFRAN) injection 4 mg, 4 mg, intravenous, Q6H PRN, Edmond Lara MD pantoprazole (PROTONIX) 4 mg/mL injection 40 mg, 40 mg, intravenous, BID, Celsa Pedraza NP, 40 mg at 12/20/22 1222 pregabalin (LYRICA) capsule 75 mg, 75 mg, oral, Nightly, Edmond Lara MD prochlorperazine (COMPAZINE) tablet 5 mg, 5 mg, oral, Q6H PRN OR prochlorperazine (COMPAZINE) injection 5 mg, 5 mg, intravenous, Q6H PRN, Celsa Pedraza NP ramelteon (ROZEREM) tablet 8 mg, 8 mg, oral, Nightly PRN, Edmond Lara MD senna-docusate (PERICOLACE) 8.6-50 mg per tablet 1 tablet, 1 tablet, oral, BID PRN, Edmond Lara MD sodium chloride 0.9% flush 0.5-20 mL, 0.5-20 mL, intra-catheter, Q8H [facility], Celsa Pedraza NP, 10 mL at 12/20/22 1226 sodium chloride 0.9% flush 0.5-20 mL, 0.5-20 mL, intra-catheter, PRN, Celsa Pedraza NP REVIEW OF SYSTEMS: A complete (comprehensive) review of systems was performed and the pertinent negatives and positives are noted in the HPI. All other systems reviewed are negative. PHYSICAL EXAM: BP 162/69 (BP Location: Right arm, Patient Position: Lying) Pulse 70 Temp 36.5 ??C (97.7 ??F) (Oral) Resp 18 Ht 157.5 cm (5' 2 ) Wt 67.5 kg (148 lb 13 oz) SpO2 95% BMI 27.22 kg/m?? Wt Readings from Last 3 Encounters: 12/20/22 67.5 kg (148 lb 13 oz) 12/06/22 78.9 kg (173 lb 15.1 oz) 12/05/22 79.3 kg (174 lb 12.8 oz) Temp Readings from Last 3 Encounters: 12/20/22 36.5 ??C (97.7 ??F) (Oral) 12/18/22 36.6 ??C (97.9 ??F) (Oral) 12/05/22 37 ??C (98.6 ??F) (Oral) BP Readings from Last 3 Encounters: 12/20/22 162/69 12/18/22 152/65 12/05/22 145/71 Pulse Readings from Last 3 Encounters: 12/20/22 70 12/18/22 71 12/05/22 72 24hr Min/Max: Temp Min: 36.5 ??C (97.7 ??F) Max: 36.9 ??C (98.4 ??F) Pulse Min: 70 Max: 71 BP Min: 149/66 Max: 162/69 Resp Min: 18 Max: 18 SpO2 Min: 95 % Max: 95 % Input/Output: No intake/output data recorded. Physical Exam Vitals reviewed. Constitutional: General: She is not in acute distress. Appearance: She is not ill-appearing. Comments: Easily arousable HENT: Nose: Nose normal. Mouth/Throat: Pharynx: Oropharynx is clear. Eyes: Conjunctiva/sclera: Conjunctivae normal. Cardiovascular: Rate and Rhythm: Normal rate and regular rhythm. Heart sounds: Normal heart sounds. No murmur heard. No friction rub. No gallop. Pulmonary: Effort: No respiratory distress. Breath sounds: Normal breath sounds. No wheezing, rhonchi or rales. Abdominal: General: Bowel sounds are normal. There is no distension. Palpations: Abdomen is soft. There is no mass. Tenderness: There is no abdominal tenderness. There is no guarding or rebound. Hernia: No hernia is present. Genitourinary: Comments: Rectal exam with brown stools, external hemorrhoids that are not irritated, mildly decreased tone Musculoskeletal: Right lower leg: No edema. Left lower leg: No edema. Skin: Coloration: Skin is not jaundiced or pale. Findings: No bruising, erythema or rash. Neurological: Mental Status: Mental status is at baseline. Comments: Oriented to person and place but not to year LABS: I have personally reviewed and interpreted the following laboratory studies in the HPI and as below CBC: Recent Labs Lab Units 12/18/22 0551 12/17/22 0602 12/16/22 0525 WBC K/cumm 10.9* 10.7* 11.0* HEMOGLOBIN g/dL 9.6* 8.8* 8.2* HEMATOCRIT % 30.6* 28.5* 27.0* MCV fL 95.3 95.6 96.1 PLATELETS K/cumm 316 314 303 Recent Labs Lab Units 12/18/22 0551 12/17/22 0602 12/16/22 0525 MCV fL 95.3 95.6 96.1 BMP: Recent Labs Lab Units 12/20/22 1221 12/20/22 0551 12/18/22 2050 12/18/22 0749 12/18/22 0551 12/17/22 0718 12/17/22 [...] 202* -- 140 POC GLUCOSE MONITOR mg/dL 187 226* 305* < > -- < > -- < > -- BUN SERUM mg/dL -- -- -- -- 61* -- 53* -- 52* CREATININE mg/dL -- -- -- -- 2.37* -- 2.26* -- 2.44* CALCIUM mg/dL -- -- -- -- 9.5 -- 9.3 -- 9.2 < > = values in this interval not displayed. LIVER: Recent Labs Lab Units 12/18/22 0551 12/17/22 0602 12/16/22 0525 ALBUMIN g/dL 2.5* 2.7* 2.9* IMAGING: Additionally, the following labs and images were reviewed and interpreted and my findings are as follows: - 11/2022 TTE with EF 65%, mod pHTN with RVSP 50, Dilated IVC - 05/2022 CT a/p non-con with nonspecific changes to the liver surface, gallbladder partially distended, no cholecystitis, no biliary duct dilation, spleen normal, atrophy of the pancreas, sigmoid diverticula, stool throughout the colon, small bowel normal, distended stomach, chronic subcu nodule in the mid abdomen slightly increased in size up to 1.3 cm OUTSIDE RECORDS: Records Review: I have personally reviewed records from [id number]. These are summarized within this note. ENDOSCOPY PROCEDURES: Reports prior, I personally reviewed the report and images as detailed below: Previous colonoscopies: - 2016 for follow up of proctitis seen on CT and possible GI bleed with Dr. Zamorano with poor prep, scope advanced to the TI. TI normal, to cecal polyps 2-3 mm removed, biopsies obtained from the rectum, medium-sized hemorrhoids Previous upper endoscopies: - 2016 for possible GI bleed - no bleeding on exam. Esophagus normal, stomach normal, small bowel normal *small bowel biopsy negative *Stomach with minimal chronic gastritis and focal atrophy, H pylori negative ASSESSMENT: Sixto Chakraborty is a 72 y.o. woman with a history of HLD, HTN, DM, HF, schizophrenia, dementia, CRI,recent hospitalization for right toe osteomyelitis d/c on dapto and flagyl is a/w blood in stool and weakness found to have UA with pyuria started on CTX RECOMMENDATIONS: #stool with reported blood - current rectal exam is without bleeding, patient has significant comorbidity and would not recommend luminal procedures at this time unless patient is actively bleeding. Therefore I recommend the following - can give IV PPI over the next 24 hours, if no signs of bleeding would transition to oral daily - follow stool output and notify us if any signs or symptoms of active GI bleeding observed here - hemorrhoid care as ordered - patient currently has a diet ordered, can continue for now as no procedure is planned unless her clinical course were to change - additional recs pending clinical course #anemia - she appears even higher than her baseline which looks to be in the eights dating back to 2019 - can send additional anemia labs # UTI and osteomyelitis - being managed by ID, appreciate their care I have discussed the above recommendations and their risks, benefits, and alternatives, with the patient and any family present, and all agreed with the plan. All questions were answered. The patientconfirmed understanding of the plan and next steps. Thank you for allowing me to participate in the care of this patient. We will continue to follow. Please do not hesitate to contact me with further questions. Kim Looney MD My total encounter time on 12/20/2022 was 67 minutes which was spent in the activities documented in the note. This includes time spent prior to the visit and after the visit in direct care of the patient. This time does not include time spent in any separately reportable services. Voice recognition software ([email or web address]) was used to complete this document. Despite proofreading, supervisor hydrochloric area variances and typographical errors may occur. documented in this encounter Miscellaneous Notes * Provider Query - Darren Morgan DO - 12/30/2022 4:00 PM CDT Specify if the diagnosis UTI has been confirmed or ruled out after study. ___ UTI ruled out ___ UTI confirmed ___ Other, specify below Additional Provider Response: Uti ruled out Clinical Indicators/Treatments: --12/20 H&P: 72 y.o. female with a PMHx significant for Arthritis, CHF, Dementia, Depression, Diabetic neuropathy, HLD, HTN, Osteomyelitis, CKD, Schizophrenia, and DMT2. Presents to the ED with a chief complaint of fatigue and weakness. 12/20 UCX: Final Report: Less than 100,000 colonies/mL (clinically insignificant growth based on current clinical standards) Comment: Testing performed by: [facility], [address] [facility], [place]., [address] Organism (CLINICALLY INSIGNIFICANT GROWTH --12/25 ID Urine cx insig growth -We called [facility] and urine cx 12/19 is no growth-final --12/29 Internal Med PN: Patient has existing osteomyelitis of the great toe. She is on daptomycin and Flagyl until seven four Urinary tract infection: POA patient's urinalysis on 12/20/2022 noted leukocyte esterase 3+ WBC greater than 50 yeast 4+ -patient currently finishing 2 antibiotics, daptomycin Flagyl per Infectious Disease [place]: ceftriaxone x1 Use of terms such as likely, suspected, possible, or probable (associated with a specific diagnosisthat is being evaluated, monitored, or treated as if it exists) are acceptable and can be coded in the inpatient setting when documented at the time of discharge. This documentation will become part of the patient???s medical record. Thank you, Dana Harper RN, BSN Clinical Internet Cafe Manager [employer] Teams: Dana Harper PerfectServe: Dana Harper [facility] NAME: Dana Harper Email: [email or web address] * Plan of Care - Tim Castelan MSW - 12/30/2022 11:49 AM CDT BRICK WASHER spoke with pt's daughter today and provided an update regarding EMS time. * Plan of Care - Tim Castelan MSW - 12/30/2022 11:33 AM CDT [facility] Phone Numbers Report:[phone] Rm:1120 bed 1 Pharmacy: [facility] * Plan of Care - Tim Castelan MSW - 12/30/2022 8:42 AM CDT [facility], the following facilities can accept pt: [facility] [place] [facility] [place], [facility] and [facility] unable to accept pt due to bed availability. BRICK WASHER spoke with pt's daughter today and provided an update. Pt's daughter advised BRICK WASHER that she wouldlike for pt to discharge to [facility]. BRICK WASHER spoke with Leslie from [facility] today. Per Leslie, [facility] has one bed available. EMS arranged for 4pm. BRICK WASHER sent updates to pt's medical team. * Plan of Care - Manjinder Gutiérrez RN - 12/30/2022 1:59 AM CDT Goals: Clinical Goals for the Shift: stable VS, monitor BG, care and safety, keep comfortable * Plan of Care - Sara Thornton OT - 12/29/2022 4:07 PM CDT Interim 12/29/22: all goals reviewed/updated as appropriate. Sara Mcdonnell??DIDI Curry 12/29/22 4:07 PM Problem: OT Misc Goal: OT STG - Misc 1 Description: Patient will complete HEP with sba one time to increase tolerance for ADL's. Outcome: Progressing Goal: OT STG - Misc 2 Description: Patient will complete functional transfer with modified indep one time. Outcome: Progressing Goal: OT STG - Misc 3 Description: Patient will complete UE/LE dress with sba one time. Outcome: Progressing Goal: OT STG - Misc 4 Description: Patient will complete grooming, 2 tasks with modified indep one time. Outcome: Progressing * Plan of Care - Tim Castelan MSW - 12/29/2022 2:25 PM CDT BRICK WASHER hasn't received any response from facilities at this time. * Plan of Care - Marilyn Boykin - 12/29/2022 11:09 AM CDT Problem: Lack of Knowledge: Goal: Ability to state ways to decrease the risk of falls will improve Outcome: Progressing Problem: Health Behavior: Goal: Understanding of discharge needs will improve 12/29/2022 1109 by Marilyn Boykin Outcome: Progressing 12/29/2022 1109 by Marilyn Boykin Outcome: Progressing Problem: Lack of Knowledge Goal: Knowledge of disease or condition will improve Outcome: Progressing Goals: Clinical Goals for the Shift: stable VS, monitor BG, care and safety, keep comfortable * Plan of Care - Tim Castelan MSW - 12/29/2022 11:06 AM CDT Pt's daughter called BRICK WASHER back today stating that she chose facilities from email that BRICK WASHER sent to her on Thursday. On [facility], pt's daughter chose facilities through ranking. Pt's daughter stated thatshe wasn't aware how [facility] in [place] is 3rd choice, because that is her 2nd choice and [facility] is 3rd choice. Pt's daughter 1st choice is [facility]. BRICK WASHER finished the referral process through [facility]. Awaiting to hear back from facilities. * [facility] Note - Tim Castelan MSW - 12/29/2022 10:52 AM CDT Images from the original note were not included. Patient Information: Patient Header Patient Information Patient Name: SIXTO CHAKRABORTY Date of 1950 (72 years) Sex: Female Phone Numbers: Home: , Meds and Admin Active Only All Meds/Most Recent Administrations All Meds/Most Recent Administrations albuterol HFA (PROVENTIL HFA,VENTOLIN HFA,PROAIR HFA) 90 mcg/actuation inhaler 2 puff [[id number]] Ordering Provider: Edmond Lara MD Status: Verified Ordered On: 12/20/22553 Start: 12/20/22556 Ordered Dose (Remaining/Total): 2 puff (--/--) Route: inhalation Frequency: Every 4 hours PRN (thermal engineer) Ordered Rate/Order Duration: -- / -- (No admins scheduled or recorded for this medication) All Meds/Most Recent Administrations atorvastatin (LIPITOR) tablet 20 mg [[id number]] Held by Provider since 12/20/2022 at 1148 by Celsa Pedraza NP.Hold Reason: OtherHold Comments: CLEMENTE Ordering Provider: Edmond Lara MD Status: Verified Ordered On: 12/20/22553 Start: 12/20/222099 Ordered Dose (Remaining/Total): 20 mg (--/--) Route: oral Frequency: Nightly Ordered Rate/Order Duration: -- / -- (No admins scheduled or recorded for this medication) All Meds/Most Recent Administrations DAPTOmycin (CUBICIN) 50 mg/mL sodium chloride 0.9% 350 mg [[id number]] Ordering Provider: Edmond Lara MD Status: Completed (Past End Date/Time) Ordered On: 12/20/22553 Starts/Ends: 12/20/22 0900 - 12/24/22 0803 Ordered Dose (Remaining/Total): 350 mg (0/3) Route: intravenous Frequency: Every 48 hours Ordered Rate/Order Duration: 210 mL/hr / 2 Minutes Admin Instructions: Do not administer or mix with dextrose-containing solutions Line Med Link Info Comment PICC Single Lumen 11/11/22 Non-tunneled Power Left Brachial;Upper arm 12/20/22 1001 by Becky Adams RN -- Timestamps Action Dose / Rate / Duration Route Other Information 12/24/22 0801 Given 350 mg 210 mL/hr 2 Minutes intravenous Performed by: Audie Azevedo, RN ferrous sulfate delayed release tablet 65 mg of elemental iron [[id number]] Ordering Provider: Edmond Lara MD Status: Dispensed Ordered On: 12/20/22553 Start: 12/20/22 0800 Ordered Dose (Remaining/Total): 65 mg of elemental iron (--/--) Route: oral Frequency: Daily with breakfast Ordered Rate/Order Duration: -- / -- Admin Instructions: 325 MG OF FERROUS SULFATE = 65 MG OF ELEMENTAL IRON Timestamps Action Dose Route Other Information 12/29/22 0855 Given 65 mg of elemental iron oral Performed by: Marilyn Boykin Scanned Package: [id number] metroNIDAZOLE (FLAGYL) tablet 500 mg [[id number]] Ordering Provider: Edmond Lara MD Status: Completed (Past End Date/Time) Ordered On: 12/20/22553 Starts/Ends: 12/20/22899 - 12/23/222117 Ordered Dose (Remaining/Total): 500 mg () Route: oral Frequency: 3 times daily Ordered Rate/Order Duration: -- / -- Timestamps Action Dose Route Other Information 12/23/222117 Given 500 mg oral Performed by: Manjinder Gutiérrez RN Scanned Package: [id number] pregabalin (LYRICA) capsule 75 mg [[id number]] Ordering Provider: Edmond Lara MD Status: Dispensed Ordered On: 12/20/22553 Start: 12/20/222099 Ordered Dose (Remaining/Total): 75 mg (--/--) Route: oral Frequency: Nightly Ordered Rate/Order Duration: -- / -- Timestamps Action Dose Route Other Information 12/28/222153 Given 75 mg oral Performed by: Manjinder Gutiérrez RN Scanned Package: [id number] ondansetron ODT (ZOFRAN-ODT) disintegrating tablet 4 mg [[id number]] Ordering Provider: Edmond Lara MD Status: Verified Ordered On: 12/20/22553 Start: 12/20/22545 Ordered Dose (Remaining/Total): 4 mg (--/--) Route: oral Frequency: Every 6 hours PRN Ordered Rate/Order Duration: -- / -- (No admins scheduled or recorded for this medication) ondansetron (ZOFRAN) injection 4 mg [[id number]] Ordering Provider: Edmond Lara MD Status: Verified Ordered On: 12/20/22553 Start: 12/20/22545 Ordered Dose (Remaining/Total): 4 mg (--/--) Route: intravenous Frequency: Every 6 hours PRN Ordered Rate/Order Duration: -- / 2 Minutes (No admins scheduled or recorded for this medication) senna-docusate (PERICOLACE) 8.6-50 mg per tablet 1 tablet [[id number]] Ordering Provider: Edmond Lara MD Status: Verified Ordered On: 12/20/22553 Start: 12/20/22545 Ordered Dose (Remaining/Total): 1 tablet (--/--) Route: oral Frequency: 2 times daily PRN Ordered Rate/Order Duration: -- / -- (No admins scheduled or recorded for this medication) heparin 5,000 unit/mL injection 5,000 Units [[id number]] Ordering Provider: Edmond Lara MD Status: Dispensed Ordered On: 12/20/22553 Start: 12/20/22629 Ordered Dose (Remaining/Total): 5,000 Units (--/--) Route: subcutaneous Frequency: Every 8 hours scheduled Ordered Rate/Order Duration: -- / -- Timestamps Action Dose Route / Site Other Information 12/29/22633 Given 5,000 Units subcutaneous Left Lower Abdomen Performed by: Manjinder Gutiérrez, RN acetaminophen (TYLENOL) tablet 650 mg [[id number]] Ordering Provider: Edmond Lara MD Status: Verified Ordered On: 12/20/22553 Start: 12/20/22546 Ordered Dose (Remaining/Total): 650 mg (--/--) Route: oral Frequency: Every 4 hours PRN Ordered Rate/Order Duration: -- / -- (No admins scheduled or recorded for this medication) ramelteon (ROZEREM) tablet 8 mg [[id number]] Ordering Provider: Edmond Lara MD Status: Verified Ordered On: 12/20/22553 Start: 12/20/22546 Ordered Dose (Remaining/Total): 8 mg (--/--) Route: oral Frequency: Nightly PRN Ordered Rate/Order Duration: -- / -- (No admins scheduled or recorded for this medication) sodium chloride 0.9% flush 0.5-20 mL [[id number]] Ordering Provider: Celsa Pedraza NP Status: Verified Ordered On: 12/20/22800 Start: 12/20/22844 Ordered Dose (Remaining/Total): 0.5-20 mL (--/--) Route: intra-catheter Frequency: Every 8 hours scheduled Ordered Rate/Order Duration: -- / -- Admin Instructions: Flush volume based on line type and size. Timestamps Action Dose Route Other Information 12/29/22 0436 Given 10 mL intra-catheter Performed by: Manjinder Gutiérrez, RN sodium chloride 0.9% flush 0.5-20 mL [[id number]] Ordering Provider: Celsa Pedraza NP Status: Verified Ordered On: 12/20/22800 Start: 12/20/22799 Ordered Dose (Remaining/Total): 0.5-20 mL (--/--) Route: intra-catheter Frequency: As needed Ordered Rate/Order Duration: -- / -- Admin Instructions: Flush volume based on line type and size. Flush before and after each use. (No admins scheduled or recorded for this medication) Carrier Fluids for Secondary Infusion - 0.9% Sodium Chloride [[id number]] Ordering Provider: Celsa Pedraza NP Status: Verified Ordered On: 12/20/22800 Start: 12/20/22799 Ordered Dose (Remaining/Total): 30 mL (--/--) Route: intravenous Frequency: As needed Ordered Rate/Order Duration: -- / -- Admin Instructions: 0-250 ml/hr to flush line after IV infusions when no maintenance IV ordered. Infuse 30mL at the same rate as the secondary infusion. Run as primary IV, not intended for KVO. (No admins scheduled or recorded for this medication) prochlorperazine (COMPAZINE) tablet 5 mg [[id number]] Ordering Provider: Celsa Pedraza NP Status: Verified Ordered On: 12/20/22800 Start: 12/20/22799 Ordered Dose (Remaining/Total): 5 mg (--/--) Route: oral Frequency: Every 6 hours PRN Ordered Rate/Order Duration: -- / -- (No admins scheduled or recorded for this medication) prochlorperazine (COMPAZINE) injection 5 mg [[id number]] Ordering Provider: Celsa Pedraza NP Status: Verified Ordered On: 12/20/22 0801 Start: 12/20/22 0800 Ordered Dose (Remaining/Total): 5 mg (--/--) Route: intravenous Frequency: Every 6 hours PRN Ordered Rate/Order Duration: -- / 2 Minutes (No admins scheduled or recorded for this medication) benztropine (COGENTIN) tablet 1.5 mg [[id number]] Ordering Provider: Celsa Pedraza NP Status: Dispensed Ordered On: 12/20/221115 Start: 12/20/222099 Ordered Dose (Remaining/Total): 1.5 mg (--/--) Route: oral Frequency: Nightly Ordered Rate/Order Duration: -- / -- Timestamps Action Dose Route Other Information 12/28/222152 Given 1.5 mg oral Performed by: Manjinder Gutiérrez RN Scanned Package: [id number], [id number] dextrose oral liquid liquid 15 g [[id number]] Ordering Provider: Celsa Pedraza NP Status: Verified Ordered On: 12/20/221117 Start: 12/20/221117 Ordered Dose (Remaining/Total): 15 g (--/--) Route: [...] medication) dextrose (D10W) 10% bolus 250 mL [[id number]] Ordering Provider: Celsa Pedraza NP Status: Verified Ordered On: 12/20/221117 Start: 12/20/221117 Ordered Dose (Remaining/Total): 250 mL (--/--) Route: intravenous Frequency: Every 15 min PRN Ordered Rate/Order Duration: 1,000 mL/hr / 15 Minutes Admin Instructions: After treatment for hypoglycemia, recheck BG followed by treatment every 15 minutes until the BG is greater than 100 mg/dL. Then check BG 1 hour post treatment. If BG is less iuzt311 mg/dL, repeat Q15 minute BG checks and treatment. Call MD for each episode of hypoglycemia. (No admins scheduled or recorded for this medication) glucagon injection 1 mg [[id number]] Ordering Provider: Celsa Pedraza NP Status: Verified Ordered On: 12/20/221117 Start: 12/20/221117 Ordered Dose (Remaining/Total): 1 mg (--/--) Route: [...] scheduled or recorded for this medication) insulin lispro (HumaLOG, ADMELOG) 100 unit/mL injection 0-5 Units [[id number]] Ordering Provider: Celsa Pedraza NP Status: Dispensed Ordered On: 12/20/221117 Start: 12/20/221199 Ordered Dose (Remaining/Total): 0-5 Units (--/--) Route: subcutaneous Frequency: Every 4 hours scheduled Ordered Rate/Order Duration: -- / -- Admin [...] Action Dose Route / Site Other Information 12/29/22 0855 Given 1 Units subcutaneous Left Upper Arm Performed by: Marilyn Boykin Scanned Package: [id number] hydrocortisone (ANUSOL-HC) suppository 25 mg [[id number]] Ordering Provider: Kim Looney MD Status: Dispensed Ordered On: 12/20/22 135 Starts/Ends: 12/20/22 1430 - 01/03/23 0859 Ordered Dose (Remaining/Total): 25 mg () Route: rectal Frequency: 2 times daily Ordered Rate/Order Duration: -- / -- Timestamps Action Dose Route Other Information 12/29/22 0855 Given 25 mg rectal Performed by: Marilyn Boykin Scanned Package: [id number] phenylephrine 0.25%-mineral oil 14%-petrolatum 74.9% ointment [[id number]] Ordering Provider: Kim Looney MD Status: Verified Ordered On: 12/20/221357 Start: 12/20/22 135 Ordered Dose (Remaining/Total): -- (--/--) Route: rectal Frequency: 4 times daily PRN Ordered Rate/Order Duration: -- / -- (No admins scheduled or recorded for this medication) sodium chloride 0.9% infusion [[id number]] Ordering Provider: Jimbo Strauss MD Status: Verified (Past End Date/Time) Ordered On: 12/21/222142 Starts/Ends: 12/21/222214 - 12/22/22 0645 Ordered Dose (Remaining/Total): 125 mL/hr (--/--) Route: intravenous Frequency: Continuous Ordered Rate/Order Duration: 125 mL/hr / -- Line Med Link Info Comment Peripheral IV 12/19/22 22 G Posterior;Right Hand 12/21/222245 by Manjinder Gutiérrez RN -- Timestamps Action Dose / Rate Route Other Information 12/21/222245 New Bag 125 mL/hr 125 mL/hr intravenous Performed by: Manjinder Gutiérrez RN Scanned Package: [id number] sodium chloride 0.9% infusion [[id number]] Ordering Provider: Jimbo Strauss MD Status: Verified (Past End Date/Time) Ordered On: 12/22/22 1517 Starts/Ends: 12/22/22 1600 - 12/22/222356 Ordered Dose (Remaining/Total): 125 mL/hr (--/--) Route: intravenous Frequency: Continuous Ordered Rate/Order Duration: 125 mL/hr / -- Line Med Link Info Comment PICC Single Lumen 11/11/22 Non-tunneled Power Left Brachial;Upper arm 12/22/22 1558 by Audie Azevedo RN -- Timestamps Action Dose / Rate Route Other Information 12/22/22 1558 New Bag 125 mL/hr 125 mL/hr intravenous Performed by: Audie Azevedo RN Scanned Package: [id number] (PROTONIX) extended release tablet 40 mg [[id number]] Ordering Provider: Zhang Mendez MD Status: Dispensed Ordered On: 12/23/22 1525 Start: 12/23/222099 Ordered Dose (Remaining/Total): 40 mg (--/--) Route: oral Frequency: 2 times daily Ordered Rate/Order Duration: -- / -- Admin Instructions: This med changed from IV to PO per P&T IV to Enteral Conversion Policy Do not crush, chew, cut, dissolve, open or otherwise manipulate tablet/capsule. Timestamps Action Dose Route Other Information 12/29/22 0855 Given 40 mg oral Performed by: Marilyn Boykin Scanned Package: [id number] insulin glargine (LANTUS, SEMGLEE) 100 unit/mL injection 10 Units [[id number]] Ordering Provider: Darren Morgan DO Status: Dispensed Ordered On: 12/26/22 0947 Start: 12/26/222099 Ordered Dose (Remaining/Total): 10 Units (--/--) Route: subcutaneous Frequency: Nightly Ordered Rate/Order Duration: -- / -- Admin Instructions: Do not mix with other insulins Timestamps Action Dose Route / Site Other Information 12/28/222153 Given 10 Units subcutaneous Right Upper Arm Performed by: Manjinder Gutiérrez RN Scanned Package: [id number] , OT Eval and Treat Last 72 Hours OT Evaluation Row Name 12/22/22 1600 Session Type Evaluation -CC OT Recommendation Retirement Facility -CC Recommend SNF due to Risk of injury at home;Unable to safely care for self in the home;Skilled therapy needed to address care for self in the home;Skilled therapy needed to address functional deficits;Skilled therapy needed for patient to return to prior level of independence -CC OT Frequency during current admission 3-5x/wk -CC OT Evaluation Complete Yes -CC User Boyer (r) = Recorded By, (t) = Taken By, (c) = Cosigned By Initials Name Effective Dates CC Sara Thornton, OT 03/14/19 - OT Treatment No documentation. OT Notes Notes from 12/27/22 through 12/29/22 No notes of this type exist for this encounter. , PT Eval and Treat Last 72 Hours PT Evaluation Row Name 12/22/22 1217 Chart Reviewed Yes -AM Session Type Evaluation -AM How much difficulty does the patient have: Turning over in bed 3 -AM How much difficulty does the patient currently have: Sitting down and standing up from a chair witharms? 2 -AM How much difficulty does the patient have: Moving from lying on back to sitting on the side of the bed? 3 -AM How much difficulty does the patient have: Moving to and from a bed to a chair including wheelchair? 2 -AM How much help does the patient currently need: Walk in hospital room? 2 -AM How much help from another person does the patient currently need: Climbing 3-5 steps with a railing? 1 -AM Total 6 Click Score (range 6-24) 13 -AM Score Interpretation 33.99 -AM PT Recommendation/Plan Inpatient Rehab Facility -AM Patient at high risk for Falls;Readmission;Injury due to decreased ability to care for self;Injury due to reduced functional status;Injury due to balance deficits;Developing secondary complications: poor health management -AM Recommend Inpatient Rehab/Acute Rehab due to Ability to actively participate in intensive therapy 3hours/day, 5 days/week or 900 minutes per week;Not at baseline due to impaired ability to complete ADLs;Impaired ability to complete functional mobility;Likely to return to the community at dischargewith support system in place;Requires greater than 25% physical assistance with most mobility tasks;Requires multiple therapy disciplines to address functional deficits -AM PT Recommendation/Plan Comments Patient is a 72 y/o female presenting with weakness. PLOF, indep with w/w. At eval, patient needs max A for transfers. Recommend intensive PT at an IP Rehab to improveproblem list and indep. -AM PT Frequency during current admission 3-5x/wk -AM PT Evaluation Complete Yes -AM User Boyer (r) = Recorded By, (t) = Taken By, (c) = Cosigned By Initials Name Effective Dates AM Laquita Yost PT 11/13/22 - PT TREATMENT (last 168 hours) PT Treatment Row Name 12/26/22 1500 Recommendation/Plan PT Recommendation/Plan Retirement Facility -JZ Recommend SNF due to Risk of injury at home;Unable to safely care for self in the home;Skilled therapy needed to address care for self in the home;Skilled therapy needed to address functional deficits;Skilled therapy needed for patient to return to prior level of independence Patient unable to tolerate 3 hours of therapy at this time. -JZ PT Recommendation/Plan Comments -- Will review change to therapy recommendation with PT. SNF more appropriate at this time due to patient's level of participation. -JZ PT Frequency during current admission 3-5x/wk -JZ User Boyer (r) = Recorded By, (t) = Taken By, (c) = Cosigned By Initials Name Effective Dates Sarahy Prince PTA 05/23/19 - PT Notes Notes from 12/27/22 through 12/29/22 No notes of this type exist for this encounter. , Wound Info Only Active Wound Assessment Active Wound / Pressure ulcer / Morgan / Negative Pressure Wound / Incision Wound 11/30/22 ulceration to tip of right great Date First Assessed 11/30/22 Site -- Time First Assessed 1840 Days 28 Present on Hospital Admission: Yes Wound Type: -- Location Orientation: -- Wound Description (Comments): ulceration to tip of right great Assessments Row Name 12/28/22 2100 12/28/22 0830 12/27/222112 Site Assessment Dry;Intact;Black -- -- Yenny-wound Assessment Black -- -- Margins Undefined edges -- -- Closure Open to air -- -- Drainage Amount None -- -- Drainage Odor No odor -- -- Dressing Status Open to Air -- Open to Air Dressing -- -- Betadine Wound 12/15/22 Gluteal Cleft (vertical) MASD w./ skin loss Date First Assessed 12/15/22 Site Gluteal Cleft (vertical) Time First Assessed 1353 Days 13 Present on Hospital Admission: No Wound Description (Comments): MASD w./ skin loss Assessments Row Name 12/28/22209912/28/2282912/27/222112 Wound Status Evolving Evolving -- Margins Undefined edges -- -- Closure Open to air -- -- Drainage Amount None -- -- Dressing Status Open to Air -- Open to Air Dressing Protective barrier -- -- Interventions Topical barrier cream -- Topical barrier cream Wound 12/20/22 MASD (Moisture associated skin damage) Right;Left;Medial Thigh Date First Assessed 12/20/22 Site Thigh Time First Assessed 0530 Days 9 Wound Type: MASD (Moisture associated skin damage) Location Orientation: Right;Left;Medial Assessments Row Name 12/28/22209912/28/2282912/27/222112 Wound Status Evolving Evolving -- Site Assessment Dry -- Red;Fragile Yenny-wound Assessment Dry;Intact -- Fragile Margins Defined edges -- -- Closure Open to air -- -- Drainage Amount None -- -- Dressing Status Clean/Dry/Intact -- Open to Air Dressing Protective barrier -- Open to air Interventions Topical barrier cream -- Topical barrier cream , Vitals Info Only Vital Signs 12/28 0712/29 0659 12/29 0712/29 1052 Most Recent Temp (??C) 36.6 - 37 36.4 36.4 (97.5) 12/29 736 Pulse 65 - 68 66 66 12/29 736 Resp 17 - 18 16 16 12/29 736 SpO2 (%) 97 - 99 100 100 12/29 736 BP 148/60 - 181/62 164/86 164/86 12/29 736 MAP (mmHg) 61 - 100 120 120 12/29 736 , Oxygen Info Only Default Flowsheet Data (most recent) Endurance Tests No documentation. Default Flowsheet Data (last 48 hours) Oxygen Row Name 12/29/22 07:37:11 12/29/22 0326 12/28/22209912/28/22 1949 12/28/22 1512 Oxygen Therapy/Pulse Ox O2 Therapy None (Room air) -- None (Room air) -- None (Room air) SpO2 100 % 97 % -- 99 % 98 % Row Name 12/28/22 0830 12/28/22 0726 12/27/22 2338 12/27/22 2211 12/27/22 1940 Oxygen Therapy/Pulse Ox O2 Therapy None (Room air) None (Room air) None (Room air) None (Room air) None (Room air) SpO2 -- 98 % 95 % 97 % -- Patient Activity -- -- At rest At rest -- Row Name 12/27/22 1450 Oxygen Therapy/Pulse Ox SpO2 98 % * Plan of Care - Tim Castelan MSW - 12/29/2022 9:23 AM CDT BRICK WASHER called pt's daughter today and discussed discharge planning. Pt's daughter advised BRICK WASHER that shehasn't reviewed SNF list at this time. However, will review list and will FU with BRICK WASHER. * Plan of Care - Manjinder Gutiérrez RN - 12/29/2022 2:17 AM CDT Goals: Clinical Goals for the Shift: better blood sugar control * Plan of Care - Marilyn Boykin - 12/28/2022 3:20 PM CDT Goals: Clinical Goals for the Shift: stable VS, monitor BG, care and safety, keep comfortable Problem: Safety: Goal: Will remain free from falls Outcome: Progressing Problem: Activity: Goal: Mobility will improve Outcome: Progressing Problem: Nutritional: Goal: Dietary intake will improve Outcome: Progressing Problem: Lack of Knowledge: Goal: Understanding of ways to prevent future skin breakdown will improve Outcome: Progressing Problem: Skin Integrity: Goal: Risk for impaired skin integrity will decrease Outcome: Progressing Problem: Skin Integrity: Goal: Circulation will improve to fullest extent possible Outcome: Progressing Problem: Skin Integrity: Goal: Circulation will improve to fullest extent possible Outcome: Progressing * Plan of Care - Abram Hampton - 12/28/2022 4:46 AM CDT Goals: Clinical Goals for the Shift: (safety, comfort, catheter care, Q2 turns) Summary: Problem: Lack of Knowledge Goal: Knowledge of disease or condition will improve Outcome: Progressing Problem: Health Behavior: [...] Outcome: Progressing * Plan of Care - Abram Hampton - 12/27/2022 3:25 AM CDT Goals: Clinical Goals for the Shift: (safety, comfort, stable vitals and BG) Summary: Problem: Lack of Knowledge Goal: Knowledge of disease or condition will improve Outcome: Progressing Problem: Health Behavior: [...] Outcome: Progressing * Plan of Care - Sixto Fisher RN - 12/26/2022 3:22 PM CDT Goals: Clinical Goals for the Shift: monitor vitals and pain Summary: Problem: Lack of Knowledge Goal: Knowledge of disease or condition will improve Outcome: Progressing Problem: Health Behavior: [...] injury in home environment Outcome: Progressing Problem: Lack of Knowledge: Goal: [...] Outcome: Progressing * Plan of Care - Tim Castelan MSW - 12/26/2022 8:38 AM CDT RN informed BRICK WASHER that pt's daughter visited yesterday and now interested in pt going to SNF. BRICK WASHER called pt's daughter this morning.BRICK WASHER re-introduced self to pt's daughter. Pt's daughter advised BRICK WASHER that she would like to consider SNF option for pt at this time. BRICK WASHER will send list of SNF to pt's daughter Areli email: [email or web address] . BRICK WASHER will continue to follow-up. * Plan of Care - Abram Hampton - 12/26/2022 5:07 AM CDT Goals: Clinical Goals for the Shift: (stable vitals and BG, safety, comfort) Summary: Problem: Lack of Knowledge Goal: Knowledge of disease or condition will improve Outcome: Progressing Problem: Health Behavior: [...] extent possible Outcome: Progressing * Plan of Pee - Sixto Fisher RN - 12/25/2022 11:53 AM CDT Goals: Clinical Goals for the Shift: monitor vitals and pain Summary: Problem: Lack of Knowledge Goal: Knowledge of disease or condition will improve Outcome: Progressing Problem: Safety: Goal: Will remain free from falls Outcome: Progressing Goal: Will remain free from injury from falls Outcome: Progressing Goal: Will remain free from falls and injury in home environment Outcome: Progressing Problem: Lack of Knowledge: Goal: [...] Outcome: Progressing * Plan of Care - Salvador Smith RN - 12/25/2022 2:08 AM CDT Goals: Clinical Goals for the Shift: pain control, fall prevention, pt safety, turn schedule, skin integrity, stable BG, rest Summary: Pt has denied pain to this point during shift. Pt up sitting in chair at beginning of shift, able to transfer from chair to bed with assistance. Pt has been turned every two hours and cleansed of incontinence as needed. Joy remains in place and is functioning as desired. Blood glucose levels have been elevated overnight, treated with ordered Lantus and corrective lispro insulin. Vital signs have been stable. Will continue to monitor. Problem: Lack of Knowledge Goal: Knowledge of disease or condition will improve Outcome: Progressing Problem: Health Behavior: [...] Outcome: Progressing * Plan of Care - Audie Azevedo RN - 12/24/2022 10:36 AM CDT Goals: Clinical Goals for the Shift: safety, pain control, wound care Summary: Pt is resting comfortably; currently sitting up in chair, denies pain or other needs; wound care complete; stable. * Plan of Care - Manjinder Gutiérrez RN - 12/24/2022 1:37 AM CDT Goals: Clinical Goals for the Shift: safety, pressure ulcer prevention, pain management * Plan of Care - Audie Azevedo RN - 12/23/2022 11:16 AM CDT Goals: Clinical Goals for the Shift: safety, pain control Summary: Pt is resting comfortably; denies pain or other needs; 1+ edema in extremities. * Initial Assessments - Tim Castelan MSW - 12/23/2022 9:02 AM CDT CM Initial Assessment Interview Note Information Obtained From: Adult child Name: Areli Gayle (12/23/22826) Admission Source: Transfer from [facility] Impression: Per H&P, Patient is a 72 y.o. female with a PMHx significant for Arthritis, CHF, Dementia, Depression, Diabetic neuropathy, HLD, HTN, Osteomyelitis, CKD, Schizophrenia, and DMT2. Presents to the ED with a chief complaint of fatigue and weakness. Plan Includes: GI, I&D, Nephrology, Podiatry Therapy, and Case Mgmt. Primary Source of Transportation: Does the patient need discharge transport arranged?: No Has discharge transport been arranged?: No (12/20/22529) Health Insurance Coverage: Medicare and IDPA Prescription Coverage: Yes Pharmacy: [id number] - [address] [place] [address] [facility] [place] - [address] [facility] [address] [place] [address] Primary Care Provider: Cherelle Corcoran MD Prior to Admission: Functional Status: Moderate assist with ADLs Primary Caregiver: Family Who does the patient or legal guardian want to receive education instruction and discharge plans for after care assistance?: Name Caregiver Name: Areli Sorenson Relationship to patient: Daughter Caregiver Contact Information: [phone] Support System: Children, Family members Home Care Services: Yes Type of Home Care Services: Home health aide Durable Medical Equipment: Shower chair, Walker (wheeled), Other (Comment) (rails on bed) Living Arrangements: Children Type of Residence: Private residence (12/20/22628) SDOH: Transportation: In the past 12 months, has lack of transportation kept you from medical appointments or from getting medications?: No In the past 12 months, has lack of transportation kept you from meetings, work, or from getting things needed for daily living?: No (12/23/22854) Financial Resource: How hard is it for you to pay for the very basics like food, housing, medical care, and heating?: Patient refused (12/23/22854) Housing: In the last 12 months, was there a time when you were not able to pay the mortgage or rent on time?: No In the last 12 months, how many places have you lived?: 1 In the last 12 months, was there a time when you did not have a steady place to sleep or slept in ashelter (including now)?: No (12/23/22855) Social Connections: In a typical week, how many times do you talk on the phone with family, friends, or neighbors?: More than three times a week How often do you get together with friends or relatives?: Twice a week How often do you attend nondenominational or confucianist services?: Patient refused Do you belong to any clubs or organizations such as nondenominational groups, unions, fraternal or athletic groups, or school groups?: Patient refused How often do you attend meetings of the clubs or organizations you belong to?: Patient refused Are you , , , , never , or living with a partner?: (12/23/22855) Food Insecurity: Within the past 12 months, you worried that your food would run out before you got the money to buymore.: Never true Within the past 12 months, the food you bought just didn't last and you didn't have money to get more.: Never true (12/23/22855) Patient expects to be Discharged to: Private residence, (12/20/22529) Additional Information: BRICK WASHER spoke with pt's daughter today via phone. BRICK WASHER introduced self to pt's daughter. Pt's daughter confirmed address from facesheet. Pt lives at home with daughter, and granddaughter. Pt's daughterAreli is primary caregiver. Pt uses [facility] in [place], [place]. Pt's daughter provides pt with transportation to doctor appts. Per pt's daughter, pt has several specialists. [facility]. BRICK WASHER advised pt's daughter of therapy recommendation. Pt's daughter stated that she rather have pt return home with [facility]. BRICK WASHER will continue to follow-up. Patient's Identified Problem/Goal Problem: Ensure acute medical [...] Collaboration with patient, MD, direct care nurse, Digital Asset Manager, and other members of the health care team to assure needed interventions completed. 2. Return patient to optimal level of self-care post discharge. 3. Offal Separator will follow for Discharge Planning - interventions as needed 4. Anticipated level of care at discharge 5. Planned Discharge Disposition AKASH Greer * Plan of Care - Manjinder Gutiérrez RN - 12/23/2022 12:47 AM CDT Goals: Clinical Goals for the Shift: safety, pain control * Plan of Care - Audie Azevedo RN - 12/22/2022 6:02 PM CDT Goals: Clinical Goals for the Shift: safety, pain control Summary: Pt is resting comfortably; denies pain or other needs; has been sitting up in chair all afternoon. * Provider Query - Barb Webb MD - 12/22/2022 2:11 PM CDT Conflicting documentation is present in the medical record. Specify the appropriate diagnosis and document in the medical record and on the form below. Renal: CKD stage 3B Internal Med: CKD stage 4 __x_ CKD stage 3B ___ CKD stage 4 ___ Other, specify below Additional Provider Response: Renal notes states 3B Clinical Indicators/Treatments: --12/20 H&P: 72 y.o. female with a PMHx significant for Arthritis, CHF, Dementia, Depression, Diabetic neuropathy, HLD, HTN, Osteomyelitis, CKD, Schizophrenia, and DMT2. Presents to the ED with a chief complaint of fatigue and weakness. GI bleed -GI consulted concerning, positive FOB , could be gastritis or esophagitis -12/20 Renal consult: CKD 3B -12/21 Internal Med: CKD stage 4 GFRS: 08/05-08/09/21: 22-33 09/06-09/17/21: 22-28 09/25-10/16/21: 26-32 11/15-11/18/21: 24-11/25-12/18/21: 26-29 05/08-05/13/22: 21-06/19-06/21/22: 22-06/22/22: 30 08/01-08/07/22: 23-10/02-10/10/22: -10/27-11/14/22: 24-11/30-12/18/22: 17-22 12/21-01/11/23: 6-8 TX: lab monitoring Use of terms such as likely, suspected, possible, or probable (associated with a specific diagnosisthat is being evaluated, monitored, or treated as if it exists) are acceptable and can be coded in the inpatient setting when documented at the time of discharge. This documentation will become part of the patient???s medical record. Thank you, Dana Harper RN, BSN Clinical Internet Cafe Manager [facility] Teams: Dana Harper PerfectServe: Dana Harper [facility] NAME: Dana Harper Email: [email or web address] * Plan of Care - Tim Castelan MSW - 12/22/2022 2:08 PM CDT SS consult received for High risk for readmission or high utilizer patient . BRICK WASHER called pt's daughter, Honey today. No answer, BRICK WASHER left a message. * Plan of Care - Tim Castelan MSW - 12/22/2022 10:11 AM CDT Pt was discussed in [facility] today. Pt is a readmit. BRICK WASHER will continue to follow-up. * Plan of Care - Manjinder Gutiérrez RN - 12/22/2022 4:59 AM CDT Goals: Clinical Goals for the Shift: Maintain stable vitals, comfort and safety * Plan of Care - Galilea Gates RN - 12/21/2022 10:53 AM CDT Problem: Safety: Goal: Will remain free from falls Outcome: Progressing Goal: Will remain free from injury from falls Outcome: Progressing Problem: Activity: Goal: Mobility will improve Outcome: Progressing Problem: Nutritional: Goal: Dietary intake will improve Outcome: Progressing Goal: Ability to maintain a balanced intake and output will improve Outcome: Progressing Problem: Skin Integrity: Goal: Risk for impaired skin integrity will decrease Outcome: Progressing Goal: Ability to demonstrate warm and dry skin will improve Outcome: Progressing Goals: Clinical Goals for the Shift: Maintain stable vitals, comfort and safety Summary: * Plan of Care - Salvador Smith RN - 12/21/2022 1:05 AM CDT Goals: Clinical Goals for the Shift: pain control, fall prevention, pt safety, Lasix, bladder scan, joy,stable BG, rest Summary: Pt has denied pain to this point during shift. Pt hs not attempted to get out of bed, all fall precautions remain in place. Pt had no urine output recorded during prior shift. A bladder scanwas performed prior to initiating Lasix therapy. 553 ml found in bladder, Rosa Wheat AUTOMATION ARCHITECT notified and joy catheter was placed; urine sample collected and sent to lab. Vital signs have been stable overnight. Blood glucose levels have been elevated, treated with ordered Lantus and corrective lisproinsulin. Will continue to monitor. Problem: Lack of Knowledge Goal: Knowledge of disease or condition will improve Outcome: Progressing Problem: Health Behavior: [...] Outcome: Progressing * Plan of Care - Salvador Smith RN - 12/20/2022 7:19 AM CDT Goals: Clinical Goals for the Shift: pain control, fall prevention, pt safety, turn schedule, skin integrity, rest Summary: Pt arrived from [facility] ED via EMS at approximately 0530. Pt tested positive forfecal occult blood while at [facility]. Pt denied pain. Pt has not gotten out of bed, all fall precautions remain in place. Pt has been added to the turn schedule. Pt cleansed of bowel incontinence upon arrival to unit. documented in this encounter Plan of Treatment Upcoming Encounters Date Type Department Care Team (Latest Contact Info) Description 07/13/2024 9:00 AM SPLICER MACHINE OPERATOR Hospital Encounter [facility] [address] [place] [id number] Jaya Grier MD [address] [place] [address] [address] GAINES [address] [place] [phone] 07/13/2024 9:00 AM SPLICER MACHINE OPERATOR - 07/13/2024 9:30 AM SPLICER MACHINE OPERATOR Surgery [facility] [address] [place] [id number] Jaya Grier MD [address] [place] [address] DR GAINES [address] [place] [phone] ESOPHAGOGASTRODUODENOSCOPY Scheduled Procedures Name Priority Associated Diagnoses Date/Ti me ESOPHAGOGASTRODUODENOSCOPY Anemia, unspecified type Gastritis without bleeding, unspecified chronicity, unspecified gastritis type 07/13/2024 9:00 AM SPLICER MACHINE OPERATOR COLONOSCOPY Iron deficiency anemia due to chronic blood loss documented as of this encounter Procedures Procedure Name Priority Date/Time Associated Diagnosis Comments POCT GLUCOSE DEVICE Routine 12/30/2022 1 1:32 AM CDT POCT GLUCOSE DEVICE Routine 12/30/2022 7 :54 AM CDT EGFR Routine 12/30/2022 7:46 AM CDT CBC WITHOUT DIFFERENTIAL Routine 12/30/2022 7:46 AM CDT COMPREHENSIVE METABOLIC PANEL Routine 12/30/2022 7:46 AM CDT POCT GLUCOSE DEVICE Routine 12/30/2022 4 :45 AM CDT POCT GLUCOSE DEVICE Routine 12/30/2022 1 2:52 AM CDT POCT GLUCOSE DEVICE Routine 12/29/2022 7 :49 PM CDT POCT GLUCOSE DEVICE Routine 12/29/2022 5 :47 PM CDT EGFR Routine 12/29/2022 12:22 PM CDT CBC WITHOUT DIFFERENTIAL Routine 12/29/2022 12:22 PM CDT COMPREHENSIVE METABOLIC PANEL Routine 12/29/2022 12:22 PM CDT POCT GLUCOSE DEVICE Routine 12/29/2022 1 2:04 PM CDT POCT GLUCOSE DEVICE Routine 12/29/2022 7 :38 AM CDT POCT GLUCOSE DEVICE Routine 12/29/2022 3 :45 AM CDT POCT GLUCOSE DEVICE Routine 12/28/2022 1 1:32 PM CDT POCT GLUCOSE DEVICE Routine 12/28/2022 8 :24 PM CDT POCT GLUCOSE DEVICE Routine 12/28/2022 5 :29 PM CDT POCT GLUCOSE DEVICE Routine 12/28/2022 1 2:12 PM CDT POCT GLUCOSE DEVICE Routine 12/28/2022 7 :48 AM CDT EGFR Routine 12/28/2022 5:31 AM CDT CBC WITHOUT DIFFERENTIAL Routine 12/28/2022 5:31 AM CDT COMPREHENSIVE METABOLIC PANEL Routine 12/28/2022 5:31 AM CDT POCT GLUCOSE DEVICE Routine 12/27/2022 1 1:59 PM CDT POCT GLUCOSE DEVICE Routine 12/27/2022 8 :43 PM CDT POCT GLUCOSE DEVICE Routine 12/27/2022 4 :30 PM CDT POCT GLUCOSE DEVICE Routine 12/27/2022 1 2:13 PM CDT POCT GLUCOSE DEVICE Routine 12/27/2022 7 :41 AM CDT EGFR Routine 12/27/2022 6:46 AM CDT CBC WITHOUT DIFFERENTIAL Routine 12/27/2022 6:46 AM CDT COMPREHENSIVE METABOLIC PANEL Routine 12/27/2022 6:46 AM CDT POCT GLUCOSE DEVICE Routine 12/27/2022 5 :00 AM CDT POCT GLUCOSE DEVICE Routine 12/27/2022 1 2:26 AM CDT POCT GLUCOSE DEVICE Routine 12/26/2022 8 :04 PM CDT POCT GLUCOSE DEVICE Routine 12/26/2022 4 :00 PM CDT POCT GLUCOSE DEVICE Routine 12/26/2022 1 2:02 PM CDT POCT GLUCOSE DEVICE Routine 12/26/2022 7 :29 AM CDT EGFR Routine 12/26/2022 6:17 AM CDT CBC WITHOUT DIFFERENTIAL Routine 12/26/2022 6:17 AM CDT COMPREHENSIVE METABOLIC PANEL Routine 12/26/2022 6:17 AM CDT POCT GLUCOSE DEVICE Routine 12/26/2022 4 :19 AM CDT POCT GLUCOSE DEVICE Routine 12/26/2022 1 2:31 AM CDT POCT GLUCOSE DEVICE Routine 12/25/2022 8 :33 PM CDT POCT GLUCOSE DEVICE Routine 12/25/2022 6 :29 PM CDT POCT GLUCOSE DEVICE Routine 12/25/2022 1 1:35 AM CDT POCT GLUCOSE DEVICE Routine 12/25/2022 7 :55 AM CDT POCT GLUCOSE DEVICE Routine 12/25/2022 4 :25 AM CDT POCT GLUCOSE DEVICE Routine 12/24/2022 1 1:25 PM CDT POCT GLUCOSE DEVICE Routine 12/24/2022 8 :10 PM CDT POCT GLUCOSE DEVICE Routine 12/24/2022 4 :45 PM CDT POCT GLUCOSE DEVICE Routine 12/24/2022 1 1:19 AM CDT EGFR STAT 12/24/2022 10:46 AM CDT BASIC METABOLIC PANEL STAT 12/24/2022 10:46 AM CDT POCT GLUCOSE DEVICE Routine 12/24/2022 7 :25 AM CDT POCT GLUCOSE DEVICE Routine 12/24/2022 3 :26 AM CDT POCT GLUCOSE DEVICE Routine 12/23/2022 1 1:49 PM CDT POCT GLUCOSE DEVICE Routine 12/23/2022 8 :16 PM CDT POCT GLUCOSE DEVICE Routine 12/23/2022 3 :25 PM CDT POCT GLUCOSE DEVICE Routine 12/23/2022 1 2:20 PM CDT POCT GLUCOSE DEVICE Routine 12/23/2022 7 :29 AM CDT EGFR STAT 12/23/2022 7:25 AM CDT CBC WITHOUT DIFFERENTIAL STAT 12/23/2022 7:25 AM CDT COMPREHENSIVE METABOLIC PANEL STAT 12/23/2022 7:25 AM CDT POCT GLUCOSE DEVICE Routine 12/23/2022 4 :22 AM CDT POCT GLUCOSE DEVICE Routine 12/23/2022 1 2:30 AM CDT DIFFERENTIAL AUTO Timed 12/23/2022 12: 10 AM CDT CBC WITH AUTO DIFFERENTIAL Timed 12/23/2022 12:10 AM CDT POCT GLUCOSE DEVICE Routine 12/22/2022 8 :00 PM CDT POCT GLUCOSE DEVICE Routine 12/22/2022 3 :54 PM CDT POCT GLUCOSE DEVICE Routine 12/22/2022 1 2:22 PM CDT DIFFERENTIAL AUTO Timed 12/22/2022 8:0 5 AM CDT DIFFERENTIAL AUTO Timed 12/22/2022 8:0 5 AM CDT CBC WITH AUTO DIFFERENTIAL Timed 12/22/2022 8:05 AM CDT CBC WITH AUTO DIFFERENTIAL Timed 12/22/2022 8:05 AM CDT EGFR Routine 12/22/2022 7:48 AM CDT DIFFERENTIAL AUTO Routine 12/22/2022 7:4 8 AM CDT CBC WITH AUTO DIFFERENTIAL Routine 12/22/2022 7:48 AM CDT PHOSPHORUS Routine 12/22/2022 7:48 AM CDT CREATINE KINASE (CK), TOTAL Routine 12/22/2022 7:48 AM CDT COMPREHENSIVE METABOLIC PANEL Routine 12/22/2022 7:48 AM CDT POCT GLUCOSE DEVICE Routine 12/22/2022 7 :43 AM CDT POCT GLUCOSE DEVICE Routine 12/22/2022 5 :07 AM CDT POCT GLUCOSE DEVICE Routine 12/22/2022 1 2:43 AM CDT POCT GLUCOSE DEVICE Routine 12/21/2022 9 :27 PM CDT DIFFERENTIAL AUTO Timed 12/21/2022 6:5 7 PM CDT CBC WITH AUTO DIFFERENTIAL Timed 12/21/2022 6:57 PM CDT POCT GLUCOSE DEVICE Routine 12/21/2022 3 :57 PM CDT HEMOGLOBIN AND HEMATOCRIT STAT 12/21/2022 12:11 PM CDT POCT GLUCOSE DEVICE Routine 12/21/2022 1 1:40 AM CDT EGFR Routine 12/21/2022 8:08 AM CDT ERYTHROCYTE SEDIMENTATION RATE Routine 12/21/2022 8:08 AM CDT CBC WITHOUT DIFFERENTIAL Routine 12/21/2022 8:08 AM CDT CRP (ACUTE PHASE) Routine 12/21/2022 8:0 8 AM CDT FERRITIN Routine 12/21/2022 8:08 AM CDT BILIRUBIN, DIRECT Routine 12/21/2022 8:0 8 AM CDT COMPREHENSIVE METABOLIC PANEL Routine 12/21/2022 8:08 AM CDT POCT GLUCOSE DEVICE Routine 12/21/2022 7 :46 AM CDT POCT GLUCOSE DEVICE Routine 12/21/2022 4 :15 AM CDT POCT GLUCOSE DEVICE Routine 12/21/2022 1 2:01 AM CDT URINALYSIS AND REFLEX TO MICROSCOPIC AND CULTURE Routine 12/20/2022 10:47 PM CDT URINALYSIS, MICROSCOPIC ONLY Routine 12/20/2022 10:47 PM CDT URINE CULTURE Routine 12/20/2022 10:47 PM CDT POCT GLUCOSE DEVICE Routine 12/20/2022 8 :32 PM CDT DIFFERENTIAL AUTO Timed 12/20/2022 5:3 4 PM CDT CBC WITH AUTO DIFFERENTIAL Timed 12/20/2022 5:34 PM CDT POCT GLUCOSE DEVICE Routine 12/20/2022 5 :29 PM CDT BLOOD CULTURE Routine 12/20/2022 4:48 PM CDT BLOOD CULTURE Routine 12/20/2022 4:48 PM CDT POCT GLUCOSE DEVICE Routine 12/20/2022 1 2:21 PM CDT POCT GLUCOSE DEVICE Routine 12/20/2022 5 :51 AM CDT documented in this encounter Results * (ABNORMAL) POCT glucose (12/30/2022 11:32 AM CDT) Glucose, POC 215(H) 70 - 199 mg/dL [facility] Blood 12/30/2022 11:3 2 AM CDT 12/30/2022 11:32 AM CDT Darren Morgan DO LAB POCT ORDERABLES - DEVICE Final Result Performing Organization Address [facility] Co de Phone Number [facility] [id number] [address] [facility] [employer] [address] [place], [place] [id number] * POCT glucose (12/30/2022 7:54 AM CDT) Glucose, POC 151 70 - 199 mg/dL [facility] Blood 12/30/2022 7:54 AM CDT 12/30/2022 7:54 AM CDT Darren Morgan DO LAB POCT ORDERABLES - DEVICE Final Result Performing Organization Address City/[facility] Co de Phone Number NILSA [phone] [address] [facility] [place] [address] * eGFR (12/30/2022 7:46 AM CDT) eGFR 23 mL/min/1. 73 m2 NILSA MCDONNELL Comment: Interpretive [...] Inclusion of Race in Diagnosing Kidney Disease, MOISESSAlek 2020). The CKD-EPI equation should not be used for patients with unstable renal function and has not been validated in children and those over 70. Current interpretive data was last reviewed 2021. Blood 12/30/2022 7:46 AM CDT 12/30/2022 8:03 AM CDT us Edmond Lara MD LAB BLOOD ORDERABLES Final R esult [facility] [id number] [address] [place] [address] * (ABNORMAL) CBC without differential (12/30/2022 7:46 AM CDT) WBC 8.7 3.8 - 9.9 K/cumm [facility] Hgb 8.8(L) 11.9 - 15.5 g/dL [facility] Hct 27.9(L) 35.6 - 45.5 % [facility] Plt 328 150 - 400 K/cumm [facility] MPV 11.3 9.1 - 12.3 fL [facility] RBC 2.96(L) 3.90 - 5.20 M/cumm [facility] MCV 94.3 81.3 - 96.4 fL [facility] MCH 29.7 27.1 - 33.3 pg [facility] MCHC 31.5(L) 32.3 - 35.7 g/dL [facility] RDW CV 15.8(H) 11.1 - 14.9 % [facility] RDW SD 54.4(H) 35.7 - 48.1 fL [facility] NRBC abs 0.00 0.00 - 0.01 K/cumm [facility] Blood 12/30/2022 7:4 6 AM CDT 12/30/2022 8:02 AM CDT us Jimbo Strauss MD LAB BLOOD ORDERABLES Final [facility]u lt [facility] [id number] [address] [place] [address] * (ABNORMAL) Comprehensive metabolic panel (12/30/2022 7:46 AM CDT) Sodium 145 135 - 145 mmol/L [facility] Potassium, pl 4.6 3.3 - 4.9 mmol/L [facility] Chloride 114(H) 97 - 110 mmol/L [facility] CO2 19(L) 22 - 32 mmol/L [facility] Anion gap 12 2 - 15 mmol/L [facility] BUN 38(H) 6 - 25 mg/dL [facility] Creatinine 2.21(H) 0.60 - 1.10 mg/dL [facility] Glucose 148 70 - 199 mg/dL [facility] Comment: Interpretive Data Fasting glucose >/= [...] 2022. Calcium 9.0 8.5 - 10.3 mg/dL [facility] Bilirubin, total <0.2 0.1 - 1.2 mg/dL [facility] Protein, pl 7.7 6.5 - 8.5 g/dL [facility] Albumin 2.7(L) 3.5 - 5.0 g/dL [facility] Alk phos 150(H) 40 - 130 Units/L [facility] ALT 26 7 - 45 Units/L [facility] AST 28 10 - 45 Units/L [facility] Blood 12/30/2022 7:46 AM CDT 12/30/2022 8:03 AM CDT Edmond Lara MD LAB BLOOD ORDERABLES Final R esult Performing Organization Address [facility] Co de Phone Number NILSA MCDONNELL [phone] [address] [facility] [place] [address] * POCT glucose (12/30/2022 4:45 AM CDT) Glucose, POC 187 70 - 199 mg/dL [facility] Blood 12/30/2022 4:45 AM CDT 12/30/2022 4:45 AM CDT [facility] POCT ORDERABLES - DEVICE Final Result Performing Organization Address [facility] de Phone Number CARLOS ENRIQUEELLEN MCDONNELL [phone] [address] [facility] [place] [address] * (ABNORMAL) POCT glucose (12/30/2022 12:52 AM CDT) Glucose, POC 260(H) 70 - 199 mg/dL [facility] Blood 12/30/2022 12:5 2 AM CDT 12/30/2022 12:52 AM CDT Darren Morgan [facility] POCT ORDERABLES - DEVICE Final Result Performing Organization Address [facility] Co de Phone Number NILSA MCDONNELL [phone] [address] Department [address] [place], [place] [phone] * (ABNORMAL) POCT glucose (12/29/2022 7:49 PM CDT) Glucose, POC 324(H) 70 - 199 mg/dL [facility] Blood 12/29/2022 7:49 PM CDT 12/29/2022 7:49 PM CDT Darren Dwyernte DO LAB POCT ORDERABLES - DEVICE Final Result Performing Organization Address [facility]/ZIP Co de Phone Number NILSA MCDONNELL [phone] [address] [place] [address] * (ABNORMAL) POCT glucose (12/29/2022 5:47 PM CDT) Glucose, POC 279(H) 70 - 199 mg/dL [facility] Blood 12/29/2022 5:47 PM CDT 12/29/2022 5:47 PM CDT Darren Delmar Cathy DO LAB POCT ORDERABLES - DEVICE Final Result Performing Organization Address [facility] de Phone Number [facility] [phone] [address] [facility] [place] [address] * eGFR (12/29/2022 12:22 PM CDT) eGFR 21 mL/min/1. 73 m2 [facility] Comment: Interpretive Data Reference Interval Normal [...] interpretive data was last reviewed 2021. Blood 12/29/2022 12:2 2 PM CDT 12/29/2022 4:08 PM CDT us Edmond Lara MD LAB BLOOD ORDERABLES Final R esult [facility] [id number] [address] Department [place] [address] * (ABNORMAL) CBC without differential (12/29/2022 12:22 PM CDT) WBC 7.5 3.8 - 9.9 K/cumm [facility] Hgb 10.2(L) 11.9 - 15.5 g/dL [facility] Hct 32.6(L) 35.6 - 45.5 % [facility] Plt 382 150 - 400 K/cumm [facility] MPV 11.5 9.1 - 12.3 fL [facility] RBC 3.41(L) 3.90 - 5.20 M/cumm [facility] MCV 95.6 81.3 - 96.4 fL [facility] MCH 29.9 27.1 - 33.3 pg [facility] MCHC 31.3(L) 32.3 - 35.7 g/dL [facility] RDW CV 16.0(H) 11.1 - 14.9 % [facility] RDW SD 56.9(H) 35.7 - 48.1 fL [facility] NRBC abs 0.00 0.00 - 0.01 K/cumm [facility] Blood 12/29/2022 12:2 2 PM CDT 12/29/2022 3:54 PM CDT us Jimbo Strauss MD LAB BLOOD [place] [phone] [address] Department [place] [address] * (ABNORMAL) Comprehensive metabolic panel (12/29/2022 12:22 PM CDT) Sodium 142 135 - 145 mmol/L [facility] Potassium, pl 5.3(H) 3.3 - 4.9 mmol/L [facility] Chloride 110 97 - 110 mmol/L [facility] CO2 20(L) 22 - 32 mmol/L [facility] Anion gap 12 2 - 15 mmol/L [facility] BUN 36(H) 6 - 25 mg/dL [facility] Creatinine 2.43(H) 0.60 - 1.10 mg/dL [facility] Glucose 228(H) 70 - 199 mg/dL [facility] Comment: [...] 2022. Calcium 9.6 8.5 - 10.3 mg/dL [facility] Bilirubin, total <0.2 0.1 - 1.2 mg/dL [facility] Protein, pl 9.1(H) 6.5 - 8.5 g/dL [facility] Albumin 3.3(L) 3.5 - 5.0 g/dL [facility] Alk phos 168(H) 40 - 130 Units/L [facility] ALT 28 7 - 45 Units/L [facility] AST 30 10 - 45 Units/L [facility] Blood 12/29/2022 12:2 2 PM CDT 12/29/2022 3:54 PM CDT Edmond Lara MD LAB BLOOD ORDERABLES Final R esult Performing Organization Address [facility] Co de Phone Number NILSA MCDONNELL [phone] [address] [facility] [place] [address] * (ABNORMAL) POCT glucose (12/29/2022 12:04 PM CDT) Glucose, POC 237(H) 70 - 199 mg/dL [facility] Blood 12/29/2022 12:0 4 PM CDT 12/29/2022 12:04 PM CDT Darren Morgan DO LAB POCT ORDERABLES - DEVICE Final Result Performing Organization Address [facility] de Phone Number NILSA MCDONNELL [phone] [address] [facility] [place] [address] * POCT glucose (12/29/2022 7:38 AM CDT) Glucose, POC 153 70 - 199 mg/dL [facility] Blood 12/29/2022 7:38 AM CDT 12/29/2022 7:38 AM CDT Darren Morgan DO LAB POCT ORDERABLES - DEVICE Final Result Performing Organization Address [facility] de Phone Number CARLOS ENRIQUEELLEN MCDONNELL [phone] [place] [address] * (ABNORMAL) POCT glucose (12/29/2022 3:45 AM CDT) Glucose, POC 213(H) 70 - 199 mg/dL [facility] Blood 12/29/2022 3:45 AM CDT 12/29/2022 3:45 AM CDT Darren Morgan LAB POCT ORDERABLES - DEVICE Final Result Performing Organization Address [facility] Co de Phone Number NILSA MCDONNELL [phone] [address] [facility] [place] [address] * (ABNORMAL) POCT glucose (12/28/2022 11:32 PM CDT) Glucose, POC 204(H) 70 - 199 mg/dL [facility] Blood 12/28/2022 11:3 2 PM CDT 12/28/2022 11:32 PM CDT Darren Morgan [facility] POCT ORDERABLES - DEVICE Final Result Performing Organization Address City/[facility] Co de Phone Number NILSA MCDONNELL [phone] [place] [address] * (ABNORMAL) POCT glucose (12/28/2022 8:24 PM CDT) Glucose, POC 201(H) 70 - 199 mg/dL [facility] Blood 12/28/2022 8:24 PM CDT 12/28/2022 8:24 PM CDT Darren Morgan DO [facility] POCT ORDERABLES - DEVICE Final Result Performing Organization Address City/[facility]/ZIP Co de Phone Number NILSA MCDONNELL [phone] [address] [facility] [place] [address] * POCT glucose (12/28/2022 5:29 PM CDT) Glucose, POC 185 70 - 199 mg/dL [facility] Blood 12/28/2022 5:29 PM CDT 12/28/2022 5:29 PM CDT Darren Morgan LAB POCT ORDERABLES - DEVICE Final Result Performing Organization Address City/[facility]/ZIP Co de Phone Number NILSA MCDONNELL [phone] [place] [address] * POCT glucose (12/28/2022 12:12 PM CDT) Glucose, POC 173 70 - 199 mg/dL [facility] Blood 12/28/2022 12:1 2 PM CDT 12/28/2022 12:12 PM CDT Darren Morgan DO LAB POCT ORDERABLES - DEVICE Final Result Performing Organization Address [facility] de Phone Number [facility] [phone] [address] [facility] [place] [address] * POCT glucose (12/28/2022 7:48 AM CDT) Glucose, POC 124 70 - 199 mg/dL [facility] Blood 12/28/2022 7:48 AM CDT 12/28/2022 7:48 AM CDT Darren Delmar Cathy DO LAB POCT ORDERABLES - DEVICE Final Result Performing Organization Address [facility] Phone Number [facility] [phone] [address] [facility] [place] [address] * eGFR (12/28/2022 5:31 AM CDT) Pathologist [facility] eGFR 16 mL/min/1. 73 m2 [facility] Comment: Interpretive Data Reference Interval Normal [...] interpretive data was last reviewed 2021. Blood 12/28/2022 5:31 AM CDT 12/28/2022 5:31 AM CDT us Edmond Lara MD LAB BLOOD ORDERABLES Final R esult Performing Organization Address City/[facility]/ZIP Co de Phone Number [facility] [phone] [address] Department [place] [address] * (ABNORMAL) CBC without differential (12/28/2022 5:31 AM CDT) WBC 7.8 3.8 - 9.9 K/cumm [facility] Hgb 8.0(L) 11.9 - 15.5 g/dL [facility] Hct 26.0(L) 35.6 - 45.5 % [facility] Plt 290 150 - 400 K/cumm [facility] MPV 11.0 9.1 - 12.3 fL [facility] RBC 2.71(L) 3.90 - 5.20 M/cumm [facility] MCV 95.9 81.3 - 96.4 fL [facility] MCH 29.5 27.1 - 33.3 pg [facility] MCHC 30.8(L) 32.3 - 35.7 g/dL [facility] RDW CV 16.2(H) 11.1 - 14.9 % [facility] RDW SD 57.0(H) 35.7 - 48.1 fL [facility] NRBC abs 0.00 0.00 - 0.01 K/cumm [facility] Blood 12/28/2022 5:31 AM CDT 12/28/2022 5:31 AM CDT us Jimbo Strauss MD LAB BLOOD ORDERABLES Final Resu lt NILSA MCDONNELL [address] [address] Department [place] [address] * (ABNORMAL) Comprehensive metabolic panel (12/28/2022 5:31 AM CDT) Sodium 148(H) 135 - 145 mmol/L [facility] Potassium, pl 4.9 3.3 - 4.9 mmol/L [facility] Chloride 115(H) 97 - 110 mmol/L [facility] CO2 23 22 - 32 mmol/L [facility] Anion gap 10 2 - 15 mmol/L [facility] BUN 42(H) 6 - 25 mg/dL [facility] Creatinine 3.00(H) 0.60 - 1.10 mg/dL [facility] Glucose 104 70 - 199 mg/dL [facility] Comment: [...] Calcium 8.7 8.5 - 10.3 mg/dL [facility] Bilirubin, total <0.2 0.1 - 1.2 mg/dL [facility] Protein, pl 7.6 6.5 - 8.5 g/dL [facility] Albumin 2.8(L) 3.5 - 5.0 g/dL [facility] Alk phos 137(H) 40 - 130 Units/L [facility] ALT 19 7 - 45 Units/L [facility] AST 23 10 - 45 Units/L [facility] Blood 12/28/2022 5:31 AM CDT 12/28/2022 5:31 AM CDT us Edmond Lara MD LAB BLOOD ORDERABLES Final R esult Performing Organization Address City/[facility]/ZIP Co de Phone Number NILSA MCDONNELL [phone] [address] [facility] [place] [address] * (ABNORMAL) POCT glucose (12/27/2022 11:59 PM CDT) Glucose, POC 223(H) 70 - 199 mg/dL [facility] Blood 12/27/2022 11:5 9 PM CDT 12/27/2022 11:59 PM CDT Darren Delmar [facility] POCT ORDERABLES - DEVICE Final Result Performing Organization Address [facility] Co de Phone Number NILSA MCDONNELL [phone] [place] [address] * POCT glucose (12/27/2022 8:43 PM CDT) Glucose, POC 131 70 - 199 mg/dL [facility] Blood 12/27/2022 8:43 PM CDT 12/27/2022 8:43 PM CDT [facility] POCT ORDERABLES - DEVICE Final Result Performing Organization Address [facility] Co de Phone Number NILSA MCDONNELL [phone] [place] [address] * (ABNORMAL) POCT glucose (12/27/2022 4:30 PM CDT) Glucose, POC 248(H) 70 - 199 mg/dL [facility] Blood 12/27/2022 4:30 PM CDT 12/27/2022 4:30 PM CDT [facility] POCT ORDERABLES - DEVICE Final Result Performing Organization Address [facility] Co de Phone Number NILSA MCDONNELL [phone] [place] [address] * (ABNORMAL) POCT glucose (12/27/2022 12:13 PM CDT) Glucose, POC 225(H) 70 - 199 mg/dL [facility] Blood 12/27/2022 12:1 3 PM CDT 12/27/2022 12:13 PM CDT Darren Morgan DO LAB POCT ORDERABLES - DEVICE Final Result Performing Organization Address [facility] de Phone Number [facility] [phone] [address] [facility] [place] [address] * POCT glucose (12/27/2022 7:41 AM CDT) Pathologist [facility] Glucose, POC 135 70 - 199 mg/dL [facility] Blood 12/27/2022 7:41 AM CDT 12/27/2022 7:41 AM CDT Darren Delmar Cathy DO LAB POCT ORDERABLES - DEVICE Final Result Performing Organization Address [facility] Phone Number [facility] [phone] [address] [facility] [place] [address] * eGFR (12/27/2022 6:46 AM CDT) [facility] eGFR 14 mL/min/1. 73 m2 [facility] Comment: Interpretive Data Reference Interval Normal [...] Inclusion of Race in Diagnosing Kidney Disease, MOISESSAlek 2020). The CKD-EPI equation should not be used for patients with unstable renal function and has not been validated in children and those over 70. Current interpretive data was last reviewed 2021. Blood 12/27/2022 6:46 AM CDT 12/27/2022 6:46 AM CDT us Edmond Lara MD LAB BLOOD ORDERABLES Final R esult Performing Organization Address City/State/[facility] Co de Phone Number [facility] [address] [address] Department [place] [address] * (ABNORMAL) CBC without differential (12/27/2022 6:46 AM CDT) WBC 9.0 3.8 - 9.9 K/cumm [facility] Hgb 8.2(L) 11.9 - 15.5 g/dL [facility] Hct 26.1(L) 35.6 - 45.5 % [facility] Plt 307 150 - 400 K/cumm [facility] MPV 10.6 9.1 - 12.3 fL [facility] RBC 2.74(L) 3.90 - 5.20 M/cumm [facility] MCV 95.3 81.3 - 96.4 fL [facility] MCH 29.9 27.1 - 33.3 pg [facility] MCHC 31.4(L) 32.3 - 35.7 g/dL [facility] RDW CV 16.2(H) 11.1 - 14.9 % [facility] RDW SD 56.9(H) 35.7 - 48.1 fL [facility] NRBC abs 0.00 0.00 - 0.01 K/cumm [facility] Blood 12/27/2022 6:46 AM CDT 12/27/2022 6:46 AM CDT us Jimbo Strauss MD LAB BLOOD ORDERABLES Final Resu lt NILSA MCDONNELL [id number] Department [place] [address] * (ABNORMAL) Comprehensive metabolic panel (12/27/2022 6:46 AM CDT) Sodium 144 135 - 145 mmol/L [facility] Potassium, pl 4.7 3.3 - 4.9 mmol/L [facility] Chloride 113(H) 97 - 110 mmol/L [facility] CO2 22 22 - 32 mmol/L [facility] Anion gap 9 2 - 15 mmol/L [facility] BUN 44(H) 6 - 25 mg/dL [facility] Creatinine 3.30(H) 0.60 - 1.10 mg/dL [facility] Glucose 118 70 - 199 mg/dL [facility] Comment: [...] 2022. Calcium 8.5 8.5 - 10.3 mg/dL [facility] Bilirubin, total <0.2 0.1 - 1.2 mg/dL [facility] Protein, pl 7.7 6.5 - 8.5 g/dL [facility] Albumin 2.9(L) 3.5 - 5.0 g/dL [facility] Alk phos 155(H) 40 - 130 Units/L [facility] ALT 19 7 - 45 Units/L [facility] AST 25 10 - 45 Units/L [facility] Blood 12/27/2022 6:46 AM CDT 12/27/2022 6:46 AM CDT us Edmond Lara MD LAB BLOOD ORDERABLES Final R esult Performing Organization Address City/[facility]/ZIP Co de Phone Number NILSA MCDONNELL [id number] [address] [facility] [place] [address] * POCT glucose (12/27/2022 5:00 AM CDT) Glucose, POC 118 70 - 199 mg/dL [facility] Blood 12/27/2022 5:00 AM CDT 12/27/2022 5:00 AM CDT [facility] ORDERABLES - DEVICE Final Result Performing Organization Address [facility] de Phone Number NILSA MCDONNELL [id number] [address] [facility] [place] [address] * POCT glucose (12/27/2022 12:26 AM CDT) Glucose, POC 126 70 - 199 mg/dL [facility] Blood 12/27/2022 12:2 6 AM CDT 12/27/2022 12:26 AM CDT Darren Morgan [facility] POCT ORDERABLES - DEVICE Final Result Performing Organization Address [facility] de Phone Number NILSA MCDONNELL [address] [address] [facility] [place] [address] * POCT glucose (12/26/2022 8:04 PM CDT) Glucose, POC 198 70 - 199 mg/dL [facility] Blood 12/26/2022 8:04 PM CDT 12/26/2022 8:04 PM CDT Darren Morgan [facility] POCT ORDERABLES - DEVICE Final Result Performing Organization Address [facility] Co de Phone Number NILSA MCDONNELL [address] [address] [facility] [place] [address] * (ABNORMAL) POCT glucose (12/26/2022 4:00 PM CDT) Glucose, POC 232(H) 70 - 199 mg/dL [facility] Blood 12/26/2022 4:00 PM CDT 12/26/2022 4:00 PM CDT Darren Morgan DO LAB POCT ORDERABLES - DEVICE Final Result Performing Organization Address [facility] de Phone Number NILSA [address] [address] [facility] [place] [address] * (ABNORMAL) POCT glucose (12/26/2022 12:02 PM CDT) Glucose, POC 291(H) 70 - 199 mg/dL [facility] Blood 12/26/2022 12:0 2 PM CDT 12/26/2022 12:02 PM CDT Darren Morgan DO LAB POCT ORDERABLES - DEVICE Final Result Performing Organization Address [facility] de Phone Number [facility] [address] [address] [facility] [place] [address] * (ABNORMAL) POCT glucose (12/26/2022 7:29 AM CDT) Glucose, POC 224(H) 70 - 199 mg/dL [facility] Blood 12/26/2022 7:29 AM CDT 12/26/2022 7:29 AM CDT Darren Morgan DO LAB POCT ORDERABLES - DEVICE Final Result Performing Organization Address [facility] de Phone Number [facility] [phone] [address] [facility] [place] [address] * eGFR (12/26/2022 6:17 AM CDT) eGFR 13 mL/min/1. 73 m2 [facility] Comment: Interpretive Data Reference Interval Normal [...] interpretive data was last reviewed 2021. Blood 12/26/2022 6:17 AM CDT 12/26/2022 6:17 AM CDT us Edmond Lara MD LAB BLOOD ORDERABLES Final R esult NILSA [phone] [place] [address] * (ABNORMAL) CBC without differential (12/26/2022 6:17 AM CDT) WBC 8.6 3.8 - 9.9 K/cumm [facility] Hgb 8.1(L) 11.9 - 15.5 g/dL [facility] Hct 25.3(L) 35.6 - 45.5 % [facility] Plt 305 150 - 400 K/cumm [facility] MPV 11.2 9.1 - 12.3 fL [facility] RBC 2.66(L) 3.90 - 5.20 M/cumm [facility] MCV 95.1 81.3 - 96.4 fL [facility] MCH 30.5 27.1 - 33.3 pg [facility] MCHC 32.0(L) 32.3 - 35.7 g/dL [facility] CH RDW CV 16.3(H) 11.1 - 14.9 % [facility] CH RDW SD 57.4(H) 35.7 - 48.1 fL [facility] CH NRBC abs 0.00 0.00 - 0.01 K/cumm [facility] Blood 12/26/2022 6:17 AM CDT 12/26/2022 6:17 AM CDT us Jimbo Strauss MD LAB BLOOD ORDERABLES Final Resu lt [facility] [phone] [place] [address] * (ABNORMAL) Comprehensive metabolic panel (12/26/2022 6:17 AM CDT) Sodium 146(H) 135 - 145 mmol/L [facility] Potassium, pl 4.7 3.3 - 4.9 mmol/L [facility] Chloride 113(H) 97 - 110 mmol/L [facility] CO2 21(L) 22 - 32 mmol/L [facility] Anion gap 12 2 - 15 mmol/L [facility] BUN 54(H) 6 - 25 mg/dL [facility] Creatinine 3.68(H) 0.60 - 1.10 mg/dL [facility] Glucose 234(H) 70 - 199 mg/dL [facility] Comment: [...] - 1.2 mg/dL [facility] Protein, pl 7.5 6.5 - 8.5 g/dL [facility] Albumin 2.8(L) 3.5 - 5.0 g/dL [facility] Alk phos 194(H) 40 - 130 Units/L [facility] ALT 17 7 - 45 Units/L [facility] AST 26 10 - 45 Units/L [facility] Blood 12/26/2022 6:17 AM CDT 12/26/2022 6:17 AM CDT us Edmond Lara MD LAB BLOOD ORDERABLES Final R esult Performing Organization Address City/[facility]/ZIP Co de Phone Number NILSA MCDONNELL [phone] [address] [facility] [place] [address] * (ABNORMAL) POCT glucose (12/26/2022 4:19 AM CDT) Glucose, POC 202(H) 70 - 199 mg/dL [facility] Blood 12/26/2022 4:19 AM CDT 12/26/2022 4:19 AM CDT Darren Morgan DO LAB POCT ORDERABLES - DEVICE Final Result Performing Organization Address [facility] Co de Phone Number NILSA MCDONNELL [address] [address] [place] [address] * POCT glucose (12/26/2022 12:31 AM CDT) Glucose, POC 147 70 - 199 mg/dL [facility] Blood 12/26/2022 12:3 1 AM CDT 12/26/2022 12:31 AM CDT Darren Morgan DO LAB POCT ORDERABLES - DEVICE Final Result Performing Organization Address [facility] Co de Phone Number NILSA MCDONNELL [address] [address] [place] [address] * (ABNORMAL) POCT glucose (12/25/2022 8:33 PM CDT) Glucose, POC 209(H) 70 - 199 mg/dL [facility] Blood 12/25/2022 8:33 PM CDT 12/25/2022 8:33 PM CDT [facility] POCT ORDERABLES - DEVICE Final Result Performing Organization Address City/[facility]/ZIP Co de Phone Number NILSA MCDONNELL [phone] [address] [facility] [place] [address] * (ABNORMAL) POCT glucose (12/25/2022 6:29 PM CDT) Glucose, POC 219(H) 70 - 199 mg/dL [facility] Blood 12/25/2022 6:29 PM CDT 12/25/2022 6:29 PM CDT [facility]ren [facility] POCT ORDERABLES - DEVICE Final Result Performing Organization Address [facility] Co de Phone Number NILSA MCDONNELL [phone] [address] [facility] [place] [address] * (ABNORMAL) POCT glucose (12/25/2022 11:35 AM CDT) Glucose, POC 220(H) 70 - 199 mg/dL [facility] Blood 12/25/2022 11:3 5 AM CDT 12/25/2022 11:35 AM CDT [facility]ren [facility] POCT ORDERABLES - DEVICE Final Result Performing Organization Address City/[facility]/ZIP Co de Phone Number NILSA MCDONNELL [address] [address] [facility] [place] [address] * POCT glucose (12/25/2022 7:55 AM CDT) Glucose, POC 151 70 - 199 mg/dL [facility] Blood 12/25/2022 7:55 AM CDT 12/25/2022 7:55 AM CDT Darren Jacobsen Cathy LAB POCT ORDERABLES - DEVICE Final Result Performing Organization Address [facility] Co de Phone Number NILSA MCDONNELL [address] [address] [facility] [place] [address] * POCT glucose (12/25/2022 4:25 AM CDT) Glucose, POC 197 70 - 199 mg/dL [facility] Blood 12/25/2022 4:25 AM CDT 12/25/2022 4:25 AM CDT Darren Delmar Cathy LAB POCT ORDERABLES - DEVICE Final Result Performing Organization Address [facility] de Phone Number NILSA MCDONNELL [address] [address] [facility] [place] [address] * (ABNORMAL) POCT glucose (12/24/2022 11:25 PM CDT) Glucose, POC 275(H) 70 - 199 mg/dL [facility] Blood 12/24/2022 11:2 5 PM CDT 12/24/2022 11:25 PM CDT Darren Morgan [facility] POCT ORDERABLES - DEVICE Final Result Performing Organization Address [facility] de Phone Number CARLOS ENRIQUEELLEN MCDONNELL [address] [address] [facility] [place] [address] * (ABNORMAL) POCT glucose (12/24/2022 8:10 PM CDT) Glucose, POC 231(H) 70 - 199 mg/dL [facility] Blood 12/24/2022 8:10 PM CDT 12/24/2022 8:10 PM CDT us Darren Morgan LAB POCT ORDERABLES - DEVICE Final Result Performing Organization Address [facility] Co de Phone Number CARLOS ENRIQUEELLEN MCDONNELL [phone] [address] [facility] [place] [address] * (ABNORMAL) POCT glucose (12/24/2022 4:45 PM CDT) Glucose, POC 279(H) 70 - 199 mg/dL [facility] Blood 12/24/2022 4:45 PM CDT 12/24/2022 4:45 PM CDT Darren Delmar Cathy DO LAB POCT ORDERABLES - DEVICE Final Result Performing Organization Address [facility]/ZIP Co de Phone Number [facility] [address] [place] [address] * (ABNORMAL) POCT glucose (12/24/2022 11:19 AM CDT) Glucose, POC 291(H) 70 - 199 mg/dL [facility] Blood 12/24/2022 11:1 9 AM CDT 12/24/2022 11:19 AM CDT Darren Morgan DO LAB POCT ORDERABLES - DEVICE Final Result Performing Organization Address [facility] Co de Phone Number [facility] [address] [place] [address] * eGFR (12/24/2022 10:46 AM CDT) eGFR 7 mL/min/1. 73 m2 [facility] Comment: Interpretive Data Reference Interval Normal [...] interpretive data was last reviewed 2021. Blood 12/24/2022 10:4 6 AM CDT 12/24/2022 1:20 PM CDT us Jimbo Strauss MD LAB BLOOD ORDERABLES Final Resu lt [facility] [address] [address] [place] [address] * (ABNORMAL) Basic metabolic panel (12/24/2022 10:46 AM CDT) Sodium 142 135 - 145 mmol/L [facility] Potassium, pl 5.0(H) 3.3 - 4.9 mmol/L [facility] Chloride 108 97 - 110 mmol/L [facility] CO2 18(L) 22 - 32 mmol/L [facility] Anion gap 16(H) 2 - 15 mmol/L [facility] BUN 92(H) 6 - 25 mg/dL [facility] Creatinine 5.81(H) 0.60 - 1.10 mg/dL [facility] Glucose 244(H) 70 - 199 mg/dL [facility] Comment: Interpretive Data Fasting glucose >/= 126 [...] 8.3(L) 8.5 - 10.3 mg/dL [facility] Blood 12/24/2022 10:4 6 AM CDT 12/24/2022 1:19 PM CDT us Jimbo Strauss MD LAB BLOOD ORDERABLES Final Resu lt Performing Organization Address [facility] Co de Phone Number NILSA [address] [address] Department [employer] [place], [place] [id number] * (ABNORMAL) POCT glucose (12/24/2022 7:25 AM CDT) Glucose, POC 214(H) 70 - 199 mg/dL [facility] Blood 12/24/2022 7:25 AM CDT 12/24/2022 7:25 AM CDT us Barb Webb MD LAB POCT ORDERABLES - DEV ICE Final Result Performing Organization Address [facility] de Phone Number NILSA [address] [address] [place] [address] * (ABNORMAL) POCT glucose (12/24/2022 3:26 AM CDT) Glucose, POC 227(H) 70 - 199 mg/dL [facility] Blood 12/24/2022 3:26 AM CDT 12/24/2022 3:26 AM CDT us Zhang Mendez MD LAB POCT ORDERABLES - DEVICE Final Result Performing Organization Address [facility] de Phone Number [facility] [address] [address] [facility] [address] [place], [place] [id number] * (ABNORMAL) POCT glucose (12/23/2022 11:49 PM CDT) Glucose, POC 245(H) 70 - 199 mg/dL [facility] Blood 12/23/2022 11:4 9 PM CDT 12/23/2022 11:49 PM CDT Zhang Mendez MD LAB POCT ORDERABLES - DEVICE Final Result Performing Organization Address [facility] Co de Phone Number NILSA MCDONNELL [address] [address] [facility] [address] [place], [place] [id number] * (ABNORMAL) POCT glucose (12/23/2022 8:16 PM CDT) Glucose, POC 224(H) 70 - 199 mg/dL [facility] Blood 12/23/2022 8:16 PM CDT 12/23/2022 8:16 PM CDT Zhang Mendez MD LAB POCT ORDERABLES - DEVICE Final Result Performing Organization Address [facility] Co de Phone Number NILSA MCDONNELL [address] [address] [facility] [place] [address] * POCT glucose (12/23/2022 3:25 PM CDT) Glucose, POC 165 70 - 199 mg/dL [facility] Blood 12/23/2022 3:25 PM CDT 12/23/2022 3:25 PM CDT Zhang Mendez MD LAB POCT ORDERABLES - DEVICE Final Result Performing Organization Address [facility] Co de Phone Number NISLA MCDONNELL [address] [address] [facility] [place] [address] * POCT glucose (12/23/2022 12:20 PM CDT) Glucose, POC 170 70 - 199 mg/dL [facility] Blood 12/23/2022 12:2 0 PM CDT 12/23/2022 12:20 PM CDT Zhang Mendez MD LAB POCT ORDERABLES - DEVICE Final Result Performing Organization Address City/[facility]/ZIP Co de Phone Number NILSA MCDONNELL [address] [address] [place] [address] * POCT glucose (12/23/2022 7:29 AM CDT) Glucose, POC 132 70 - 199 mg/dL [facility] Blood 12/23/2022 7:29 AM CDT 12/23/2022 7:29 AM CDT Zhang Mendez MD LAB POCT ORDERABLES - DEVICE Final Result Performing Organization Address [facility] Co de Phone Number NILSA MCDONNELL [address] [address] [place] [address] * eGFR (12/23/2022 7:25 AM CDT) eGFR 5 mL/min/1. 73 m2 [facility] Comment: Interpretive Data Reference Interval Normal [...] interpretive data was last reviewed 2021. Blood 12/23/2022 7:25 AM CDT 12/23/2022 1:33 PM CDT us Mary Faith [employer] LAB BLOOD ORDERABLES Blessing alicea Result [facility] [address] [address] Department [place] [address] * (ABNORMAL) Comprehensive metabolic panel (12/23/2022 7:25 AM CDT) Sodium 139 135 - 145 mmol/L [facility] Potassium, pl 4.9 3.3 - 4.9 mmol/L [facility] Chloride 102 97 - 110 mmol/L [facility] CO2 16(L) 22 - 32 mmol/L [facility] Anion gap 21(H) 2 - 15 mmol/L [facility] BUN 108(H) 6 - 25 mg/dL [facility] Creatinine 7.34(H) 0.60 - 1.10 mg/dL [facility] Glucose 129 70 - 199 mg/dL [facility] Comment: [...] interpretive data was last revised 2022. Calcium 7.8(L) 8.5 - 10.3 mg/dL [facility] Bilirubin, total <0.2 0.1 - 1.2 mg/dL [facility] Protein, pl 7.0 6.5 - 8.5 g/dL [facility] Albumin 2.8(L) 3.5 - 5.0 g/dL [facility] Alk phos 147(H) 40 - 130 Units/L [facility] ALT 13 7 - 45 Units/L [facility] AST 18 10 - 45 Units/L [facility] Blood 12/23/2022 7:25 AM CDT 12/23/2022 1:33 PM CDT Mary Faith [employer] LAB BLOOD ORDERABLES Blessing l Result Performing Organization Address City/[facility]/ZIP Co de Phone Number NILSA MCDONNELL [address] [place] [address] * (ABNORMAL) CBC without differential (12/23/2022 7:25 AM CDT) Pathologist [facility] WBC 8.7 3.8 - 9.9 K/cumm [facility] Hgb 8.0(L) 11.9 - 15.5 g/dL [facility] Hct 24.9(L) 35.6 - 45.5 % [facility] Plt 284 150 - 400 K/cumm [facility] MPV 11.1 9.1 - 12.3 fL [facility] RBC 2.67(L) 3.90 - 5.20 M/cumm [facility] MCV 93.3 81.3 - 96.4 fL [facility] MCH 30.0 27.1 - 33.3 pg [facility] MCHC 32.1(L) 32.3 - 35.7 g/dL [facility] RDW CV 15.7(H) 11.1 - 14.9 % [facility] RDW SD 53.9(H) 35.7 - 48.1 fL [facility] NRBC abs 0.00 0.00 - 0.01 K/cumm [facility] Blood 12/23/2022 7:25 AM CDT 12/23/2022 7:40 AM CDT Jimbo Strauss MD LAB BLOOD ORDERABLES Final Resu lt Performing Organization Address City/[facility]/ZIP Co de Phone Number NILSA MCDONNELL [address] [place] [address] * POCT glucose (12/23/2022 4:22 AM CDT) Glucose, POC 164 70 - 199 mg/dL [facility] Blood 12/23/2022 4:22 AM CDT 12/23/2022 4:22 AM CDT Barb Webb MD LAB POCT ORDERABLES - DEV ICE Final Result Performing Organization Address [facility] Co de Phone Number NILSA [address] [address] [place] [address] * POCT glucose (12/23/2022 12:30 AM CDT) Glucose, POC 187 70 - 199 mg/dL [facility] Blood 12/23/2022 12:3 0 AM CDT 12/23/2022 12:30 AM CDT us Barb Webb MD LAB POCT ORDERABLES - DEV ICE Final Result Performing Organization Address [facility] de Phone Number NILSA MCDONNELL [address] [address] [place] [address] * (ABNORMAL) Differential, auto (12/23/2022 12:10 AM CDT) [facility] Neutrophil abs 6.3 1.7 - 6.5 K/cumm [facility] Imm gran abs 0.0 0.0 - 0.1 K/cumm [facility] Lymphocyte abs 2.0 0.8 - 3.3 K/cumm [facility] Monocyte abs 0.9(H) 0.2 - 0.8 K/cumm [facility] Eosinophil abs 0.2 0.0 - 0.5 K/cumm [facility] Basophil abs 0.0 0.0 - 0.1 K/cumm [facility]rophil pct 66.6 % [facility] Comment: Interpretive Data Percent cell count reference ranges are not reported, since discordance with absolute values may lead to misinterpretation of CBC data. Current Interpretive Data was last revised on 2017. Imm gran pct 0.3 % [facility] Comment: Interpretive Data Percent cell count reference ranges are not reported, since discordance with absolute values may lead to misinterpretation of CBC data. Current Interpretive Data was last revised on 2017. Lymphocyte pct 21.3 % [facility] Comment: Interpretive Data Percent cell count reference ranges are not reported, since discordance with absolute values may lead to misinterpretation of CBC data. Current Interpretive Data was last revised on 2017. Monocyte pct 9.0 % [facility] Comment: Interpretive Data Percent cell count reference ranges are not reported, since discordance with absolute values may lead to misinterpretation of CBC data. Current Interpretive Data was last revised on 2017. Eosinophil pct 2.4 % [facility] Comment: Interpretive Data Percent cell [...] Data was last revised on 2017. Blood 12/23/2022 12:1 0 AM CDT 12/23/2022 12:23 AM CDT us Celsa Pedraza NP LAB BLOOD ORDERABLES Final Resul t [facility] [address] [place] [address] * (ABNORMAL) CBC with auto differential (12/23/2022 12:10 AM CDT) WBC 9.5 3.8 - 9.9 K/cumm [facility] Hgb 8.8(L) 11.9 - 15.5 g/dL [facility] Hct 27.3(L) 35.6 - 45.5 % [facility] Plt 294 150 - 400 K/cumm [facility] MPV 11.4 9.1 - 12.3 fL [facility] RBC 2.93(L) 3.90 - 5.20 M/cumm [facility] MCV 93.2 81.3 - 96.4 fL [facility] MCH 30.0 27.1 - 33.3 pg [facility] MCHC 32.2(L) 32.3 - 35.7 g/dL [facility] RDW CV 15.7(H) 11.1 - 14.9 % [facility] RDW SD 53.4(H) 35.7 - 48.1 fL [facility] NRBC abs 0.00 0.00 - 0.01 K/cumm [facility] Blood 12/23/2022 12:1 0 AM CDT 12/23/2022 12:23 AM CDT us Celsa Pedraza NP LAB BLOOD ORDERABLES Final Resul t Performing Organization Address [facility] Co de Phone Number NILSA [address] [facility] [place] [address] * POCT glucose (12/22/2022 8:00 PM CDT) Glucose, POC 198 70 - 199 mg/dL [facility] Blood 12/22/2022 8:00 PM CDT 12/22/2022 8:00 PM CDT us Barb Webb MD LAB POCT ORDERABLES - DEV ICE Final Result Performing Organization Address [facility] de Phone Number NILSA MCDONNELL [address] [address] [facility] [address] [place], [place] [id number] * (ABNORMAL) POCT glucose (12/22/2022 3:54 PM CDT) Glucose, POC 214(H) 70 - 199 mg/dL [facility] Blood 12/22/2022 3:54 PM CDT 12/22/2022 3:54 PM CDT us Barb Webb MD LAB POCT ORDERABLES - DEV ICE Final Result Performing Organization Address [facility] Co de Phone Number NILSA MCDONNELL [address] [address] [facility] [employer] [place], [place] [id number] * POCT glucose (12/22/2022 12:22 PM CDT) Glucose, POC 189 70 - 199 mg/dL [facility] Blood 12/22/2022 12:2 2 PM CDT 12/22/2022 12:22 PM CDT Barb Webb MD LAB POCT ORDERABLES - DEV ICE Final Result NILSA [address] Department [place] [address] * (ABNORMAL) Differential, auto (12/22/2022 8:05 AM CDT) Pathologist [facility] Neutrophil abs 6.2 1.7 - 6.5 K/cumm [facility] Imm gran abs 0.0 0.0 - 0.1 K/cumm [facility] Lymphocyte abs 2.1 0.8 - 3.3 K/cumm [facility] Monocyte abs 0.9(H) 0.2 - 0.8 K/cumm [facility] Eosinophil abs 0.2 0.0 - 0.5 K/cumm [facility] Basophil abs 0.0 0.0 - 0.1 K/cumm [facility] Neutrophil pct 65.5 % [facility] Comment: Interpretive Data Percent cell count reference ranges are not reported, since discordance with absolute values may lead to misinterpretation of CBC data. Current Interpretive Data was last revised on 2017. Imm gran pct 0.3 % [facility] Comment: Interpretive Data Percent cell count reference ranges are not reported, since discordance with absolute values may lead to misinterpretation of CBC data. Current Interpretive Data was last revised on 2017. Lymphocyte pct 22.1 % [facility] Comment: Interpretive Data Percent cell count reference ranges are not reported, since discordance with absolute values may lead to misinterpretation of CBC data. Current Interpretive Data was last revised on 2017. Monocyte pct 9.8 % [facility] Comment: Interpretive Data Percent cell count reference ranges are not reported, since discordance with absolute values may lead to misinterpretation of CBC data. Current Interpretive Data was last revised on 2017. Eosinophil pct 1.9 % [facility] Comment: Interpretive Data Percent cell count reference ranges are not reported, since discordance with absolute values may lead to misinterpretation of CBC data. Current Interpretive Data was last revised on 2017. Basophil pct 0.4 % [facility] Comment: Interpretive Data Percent cell count reference ranges are not reported, since discordance with absolute values may lead to misinterpretation of CBC data. Current Interpretive Data was last revised on 2017. Blood 12/22/2022 8:05 AM CDT 12/22/2022 8:05 AM CDT us Celsa Pedraza NP LAB BLOOD ORDERABLES Final Resul t NILSA [address] [place] [address] * (ABNORMAL) Differential, auto (12/22/2022 8:05 AM CDT) Neutrophil abs 6.4 1.7 - 6.5 K/cumm [facility] Imm gran abs 0.0 0.0 - 0.1 K/cumm [facility] Lymphocyte abs 2.2 0.8 - 3.3 K/cumm [facility] Monocyte abs 1.0(H) 0.2 - 0.8 K/cumm [facility] Eosinophil abs 0.2 0.0 - 0.5 K/cumm [facility] Basophil abs 0.0 0.0 - 0.1 K/cumm [facility] Neutrophil pct 65.4 % [facility] [facility] Comment: Interpretive Data Percent cell count reference ranges are not reported, since discordance with absolute values may lead to misinterpretation of CBC data. Current Interpretive Data was last revised on 2017. Imm gran pct 0.3 % [facility] Comment: Interpretive Data Percent cell count reference ranges are not reported, since discordance with absolute values may lead to misinterpretation of CBC data. Current Interpretive Data was last revised on 2017. Lymphocyte pct 22.2 % [facility] Comment: Interpretive Data Percent cell count reference ranges are not reported, since discordance with absolute values may lead to misinterpretation of CBC data. Current Interpretive Data was last revised on 2017. Monocyte pct 10.1 % [facility] Comment: Interpretive Data Percent cell count reference ranges are not reported, since discordance with absolute values may lead to misinterpretation of CBC data. Current Interpretive Data was last revised on 2017. Eosinophil pct 1.7 % [facility] Comment: Interpretive Data Percent cell count reference ranges are not reported, since discordance with absolute values may lead to misinterpretation of CBC data. Current Interpretive Data was last revised on 2017. Basophil pct 0.3 % [facility] Comment: Interpretive Data Percent cell count reference ranges are not reported, since discordance with absolute values may lead to misinterpretation of CBC data. Current Interpretive Data was last revised on 2017. Blood 12/22/2022 8:05 AM CDT 12/22/2022 8:05 AM CDT us Celsa Pedraza NP LAB BLOOD ORDERABLES Final Resul t [facility] [address] Department [place] [address] * (ABNORMAL) CBC with auto differential (12/22/2022 8:05 AM CDT) WBC 9.7 3.8 - 9.9 K/cumm [facility] Hgb 8.4(L) 11.9 - 15.5 g/dL [facility] Hct 26.5(L) 35.6 - 45.5 % [facility] Plt 283 150 - 400 K/cumm [facility] MPV 11.2 9.1 - 12.3 fL [facility] RBC 2.80(L) 3.90 - 5.20 M/cumm [facility] MCV 94.6 81.3 - 96.4 fL [facility] MCH 30.0 27.1 - 33.3 pg [facility] MCHC 31.7(L) 32.3 - 35.7 g/dL [facility] RDW CV 15.9(H) 11.1 - 14.9 % [facility] RDW SD 55.2(H) 35.7 - 48.1 fL [facility] NRBC abs 0.00 0.00 - 0.01 K/cumm [facility] Blood 12/22/2022 8:05 AM CDT 12/22/2022 8:05 AM CDT Celsa Pedraza [employer] LAB BLOOD ORDERABLES Final Resul t Performing Organization Address City/[facility] Co de Phone Number NILSA MCDONNELL [address] [place] [address] * (ABNORMAL) CBC with auto differential (12/22/2022 8:05 AM CDT) WBC 9.5 3.8 - 9.9 K/cumm [facility] Hgb 8.3(L) 11.9 - 15.5 g/dL [facility] Hct 26.4(L) 35.6 - 45.5 % [facility] Plt 288 150 - 400 K/cumm [facility] MPV 11.2 9.1 - 12.3 fL [facility] RBC 2.81(L) 3.90 - 5.20 M/cumm [facility] MCV 94.0 81.3 - 96.4 fL [facility] MCH 29.5 27.1 - 33.3 pg [facility] MCHC 31.4(L) 32.3 - 35.7 g/dL [facility] RDW CV 15.9(H) 11.1 - 14.9 % [facility] RDW SD 54.5(H) 35.7 - 48.1 fL [facility] NRBC abs 0.00 0.00 - 0.01 K/cumm [facility] Blood 12/22/2022 8:05 AM CDT 12/22/2022 8:05 AM CDT Celsa Pedraza NP LAB BLOOD ORDERABLES Final Resul t Performing Organization Address City/[facility]/ZIP Co de Phone Number NILSA MCDONNELL [address] [facility] [place] [address] * eGFR (12/22/2022 7:48 AM CDT) eGFR 6 mL/min/1. 73 m2 [facility] Comment: Interpretive Data Reference Interval Normal ?>/= [...] interpretive data was last reviewed 2021. Blood 12/22/2022 7:48 AM CDT 12/22/2022 8:06 AM CDT Edmond Lara MD LAB BLOOD ORDERABLES [facility] Performing Organization Address [facility] de Phone Number NILSA [address] Department [place] [address] * (ABNORMAL) Phosphorus (12/22/2022 7:48 AM CDT) Phosphorus, pl 8.4(H) 2.3 - 4.5 mg/dL NILSA MCDONNELL Blood 12/22/2022 7:48 AM CDT 12/22/2022 8:06 AM CDT Edmond Lara MD LAB BLOOD ORDERABLES Final R esult Performing Organization Address [facility] de Phone Number NILSA [address] Department [place] [address] * (ABNORMAL) Differential, auto (12/22/2022 7:48 AM CDT) Neutrophil abs 6.1 1.7 - 6.5 K/cumm [facility] Imm gran abs 0.0 0.0 - 0.1 K/cumm [facility] Lymphocyte abs 2.1 0.8 - 3.3 K/cumm [facility] Monocyte abs 0.9(H) 0.2 - 0.8 K/cumm [facility] Eosinophil abs 0.2 0.0 - 0.5 K/cumm [facility] Basophil abs 0.0 0.0 - 0.1 K/cumm [facility] Neutrophil pct 65.1 % [facility] Comment: Interpretive Data Percent cell count reference ranges are not reported, since discordance with absolute values may lead to misinterpretation of CBC data. Current Interpretive Data was last revised on 2017. Imm gran pct 0.3 % [facility] Comment: Interpretive Data Percent cell count reference ranges are not reported, since discordance with absolute values may lead to misinterpretation of CBC data. Current Interpretive Data was last revised on 2017. Lymphocyte pct 22.4 % [facility] Comment: Interpretive Data Percent cell count reference ranges are not reported, since discordance with absolute values may lead to misinterpretation of CBC data. Current Interpretive Data was last revised on 2017. Monocyte pct 9.9 % [facility] Comment: Interpretive Data Percent cell count reference ranges are not reported, since discordance with absolute values may lead to misinterpretation of CBC data. Current Interpretive Data was last revised on 2017. Eosinophil pct 2.0 % [facility] Comment: Interpretive Data Percent cell count reference ranges are not reported, since discordance with absolute values may lead to misinterpretation of CBC data. Current Interpretive Data was last revised on 2017. Basophil pct 0.3 % [facility] Comment: Interpretive Data Percent cell count reference ranges are not reported, since discordance with absolute values may lead to misinterpretation of CBC data. Current Interpretive Data was last revised on 2017. Blood 12/22/2022 7:48 AM CDT 12/22/2022 8:05 AM CDT us Carlosdeyanira Mckinney Hugh [employer]ATION ARCHITECT LAB [place] [address] [address] Department [place] [address] * (ABNORMAL) Comprehensive metabolic panel (12/22/2022 7:48 AM CDT) Sodium 136 135 - 145 mmol/L [facility] Potassium, pl 4.9 3.3 - 4.9 mmol/L [facility] Chloride 100 97 - 110 mmol/L [facility] CO2 18(L) 22 - 32 mmol/L [facility] Anion gap 18(H) 2 - 15 mmol/L [facility] BUN 104(H) 6 - 25 mg/dL [facility] Creatinine 6.99(H) 0.60 - 1.10 mg/dL [facility] Glucose 196 70 - 199 mg/dL [facility] Comment: [...] - 1.2 mg/dL [facility] Protein, pl 7.3 6.5 - 8.5 g/dL [facility] Albumin 2.7(L) 3.5 - 5.0 g/dL [facility] Alk phos 169(H) 40 - 130 Units/L [facility] ALT 14 7 - 45 Units/L [facility] AST 22 10 - 45 Units/L [facility] Blood 12/22/2022 7:48 AM CDT 12/22/2022 8:06 AM CDT us Edmond Lara MD LAB BLOOD ORDERABLES Final R esult Performing Organization Address City/[facility]/ZIP Co de Phone Number NILSA [address] [place] [address] * (ABNORMAL) CBC with auto differential (12/22/2022 7:48 AM CDT) WBC 9.4 3.8 - 9.9 K/cumm [facility] Hgb 8.7(L) 11.9 - 15.5 g/dL [facility] Hct 27.2(L) 35.6 - 45.5 % [facility] Plt 306 150 - 400 K/cumm [facility] MPV 11.2 9.1 - 12.3 fL [facility] RBC 2.88(L) 3.90 - 5.20 M/cumm [facility] MCV 94.4 81.3 - 96.4 fL [facility] MCH 30.2 27.1 - 33.3 pg [facility] MCHC 32.0(L) 32.3 - 35.7 g/dL [facility] RDW CV 15.9(H) 11.1 - 14.9 % [facility] RDW SD 54.8(H) 35.7 - 48.1 fL [facility] NRBC abs 0.00 0.00 - 0.01 K/cumm [facility] Blood 12/22/2022 7:48 AM CDT 12/22/2022 8:05 AM CDT us Terrance Reese [employer]CHIT[employer] LAB BLOOD ORDERABLES Final Resu lt NILSA MCDONNELL [address] [place] [address] * Creatine kinase (CK), total (12/22/2022 7:48 AM CDT) CK 66 30 - 200 Units/L [facility] Blood 12/22/2022 7:48 AM CDT 12/22/2022 8:06 AM CDT us Sussy Calderon DO LAB BLOOD ORDERABLES Final Result Performing Organization Address [facility] Co de Phone Number NILSA MCDONNELL [address] [facility] [place] [address] * (ABNORMAL) POCT glucose (12/22/2022 7:43 AM CDT) Glucose, POC 237(H) 70 - 199 mg/dL [facility] Blood 12/22/2022 7:43 AM CDT 12/22/2022 7:43 AM CDT us Barb Webb MD LAB POCT ORDERABLES - DEV ICE Final Result Performing Organization Address [facility] de Phone Number NILSA MCDONNELL [address] [facility] [place] [address] * (ABNORMAL) POCT glucose (12/22/2022 5:07 AM CDT) Glucose, POC 215(H) 70 - 199 mg/dL [facility] Blood 12/22/2022 5:07 AM CDT 12/22/2022 5:07 AM CDT us Barb Webb MD LAB POCT ORDERABLES - DEV ICE Final Result Performing Organization Address [facility] Co de Phone Number NILSA MCDONNELL [address] [facility] [place] [address] * (ABNORMAL) POCT glucose (12/22/2022 12:43 AM CDT) Glucose, POC 294(H) 70 - 199 mg/dL [facility] Blood 12/22/2022 12:4 3 AM CDT 12/22/2022 12:43 AM CDT us Barb Webb MD LAB POCT ORDERABLES - DEV ICE Final Result NILSA MCDONNELL [address] Department [place] [address] * (ABNORMAL) POCT glucose (12/21/2022 9:27 PM CDT) Glucose, POC 253(H) 70 - 199 mg/dL [facility] Blood 12/21/2022 9:27 PM CDT 12/21/2022 9:27 PM CDT Barb Webb MD LAB POCT ORDERABLES - DEV ICE Final Result Performing Organization Address City/[facility]/ZIP Co de Phone Number NILSA MCDONNELL [address] Department [place] [address] * (ABNORMAL) Differential, auto (12/21/2022 6:57 PM CDT) Neutrophil abs 6.8(H) 1.7 - 6.5 K/cumm [facility] Imm gran abs 0.0 0.0 - 0.1 K/cumm [facility] Lymphocyte abs 2.5 0.8 - 3.3 K/cumm [facility] Monocyte abs 0.9(H) 0.2 - 0.8 K/cumm [facility] Eosinophil abs 0.2 0.0 - 0.5 K/cumm [facility] Basophil abs 0.0 0.0 - 0.1 K/cumm [facility] Neutrophil pct 65.1 % [facility] Comment: Interpretive Data Percent cell count reference ranges are not reported, since discordance with absolute values may lead to misinterpretation of CBC data. Current Interpretive Data was last revised on 2017. Imm gran pct 0.3 % [facility] Comment: Interpretive Data Percent cell count reference ranges are not reported, since discordance with absolute values may lead to misinterpretation of CBC data. Current Interpretive Data was last revised on 2017. Lymphocyte pct 23.7 % [facility] Comment: Interpretive Data Percent cell count reference ranges are not reported, since discordance with absolute values may lead to misinterpretation of CBC data. Current Interpretive Data was last revised on 2017. Monocyte pct 8.6 % [facility] Comment: Interpretive Data Percent cell count reference ranges are not reported, since discordance with absolute values may lead to misinterpretation of CBC data. Current Interpretive Data was last revised on 2017. Eosinophil pct 1.9 % [facility] Comment: Interpretive Data Percent cell count reference ranges are not reported, since discordance with absolute values may lead to misinterpretation of CBC data. Current Interpretive Data was last revised on 2017. Basophil pct 0.4 % [facility] Comment: Interpretive Data Percent cell count reference ranges are not reported, since discordance with absolute values may lead to misinterpretation of CBC data. Current Interpretive Data was last revised on 2017. Blood 12/21/2022 6:57 PM CDT 12/21/2022 6:57 PM CDT us Celsa Pedraza NP LAB BLOOD ORDERABLES Final Resul t [facility] [address] Department [place] [address] * (ABNORMAL) CBC with auto differential (12/21/2022 6:57 PM CDT) WBC 10.4(H) 3.8 - 9.9 K/cumm [facility] Hgb 8.4(L) 11.9 - 15.5 g/dL [facility] Hct 26.3(L) 35.6 - 45.5 % [facility] Plt 304 150 - 400 K/cumm [facility] MPV 10.8 9.1 - 12.3 fL [facility] RBC 2.80(L) 3.90 - 5.20 M/cumm [facility] MCV 93.9 81.3 - 96.4 fL [facility] MCH 30.0 27.1 - 33.3 pg [facility] MCHC 31.9(L) 32.3 - 35.7 g/dL [facility] RDW CV 15.9(H) 11.1 - 14.9 % [facility] RDW SD 55.0(H) 35.7 - 48.1 fL [facility] NRBC abs 0.00 0.00 - 0.01 K/cumm [facility] Blood 12/21/2022 6:57 PM CDT 12/21/2022 6:57 PM CDT Celsa Pedraza NP LAB BLOOD ORDERABLES Final Resul t Performing Organization Address [facility] de Phone Number NILSA MCDONNELL [address] [facility] [place], [place] [id number] * (ABNORMAL) POCT glucose (12/21/2022 3:57 PM CDT) Glucose, POC 269(H) 70 - 199 mg/dL [facility] Blood 12/21/2022 3:57 PM CDT 12/21/2022 3:57 PM CDT Barb Webb MD LAB POCT ORDERABLES - DEV ICE Final Result Performing Organization Address [facility] de Phone Number NILSA MCDONNELL [address] [place] [address] * (ABNORMAL) Hemoglobin and hematocrit (12/21/2022 12:11 PM CDT) Hgb 8.4(L) 11.9 - 15.5 g/dL [facility] Hct 26.7(L) 35.6 - 45.5 % [facility] Blood 12/21/2022 12:1 1 PM CDT 12/21/2022 12:20 PM CDT Narrative [facility] - 12/21/2022 12:31 PM CDT To determine if big drop in hgb is real or hemolysis Barb Webb MD LAB BLOOD ORDERABLES Blessing l Result Performing Organization Address [facility] Co de Phone Number NILSA MCDONNELL [address] [place] [address] * (ABNORMAL) POCT glucose (12/21/2022 11:40 AM CDT) Glucose, POC 237(H) 70 - 199 mg/dL [facility] Blood 12/21/2022 11:4 0 AM CDT 12/21/2022 11:40 AM CDT us Barb Webb MD LAB POCT ORDERABLES - DEV ICE Final Result NILSA [address] Department [place] [address] * eGFR (12/21/2022 8:08 AM CDT) Pathologist [facility] eGFR 8 mL/min/1. 73 m2 NILSA Comment: Interpretive Data [...] interpretive data was last reviewed 2021. Blood 12/21/2022 8:08 AM CDT 12/21/2022 9:17 AM CDT us Edmond Lara MD LAB BLOOD ORDERABLES Final R esult NILSA MCDONNELL [address] [place] [address] * Bilirubin, direct (12/21/2022 8:08 AM CDT) Bilirubin, direct <0.2 0.1 - 0.3 mg/dL [facility] Blood 12/21/2022 8:08 AM CDT 12/21/2022 9:14 AM CDT Edmond Lara MD LAB BLOOD ORDERABLES Final R esult Performing Organization Address [facility] Co de Phone Number NILSA MCDONNELL [address] Department [place] [address] * (ABNORMAL) Comprehensive metabolic panel (12/21/2022 8:08 AM CDT) Sodium 139 135 - 145 mmol/L [facility] Potassium, pl 4.9 3.3 - 4.9 mmol/L [facility] Chloride 102 97 - 110 mmol/L [facility] CO2 22 22 - 32 mmol/L [facility] Anion gap 15 2 - 15 mmol/L [facility] BUN 94(H) 6 - 25 mg/dL [facility] Creatinine 5.43(H) 0.60 - 1.10 mg/dL [facility] Glucose 150 70 - 199 mg/dL [facility] Comment: [...] Calcium 8.9 8.5 - 10.3 mg/dL [facility] Bilirubin, total <0.2 0.1 - 1.2 mg/dL [facility] Protein, pl 7.4 6.5 - 8.5 g/dL [facility] Albumin 2.8(L) 3.5 - 5.0 g/dL [facility] Alk phos 109 40 - 130 Units/L [facility] ALT 11 7 - 45 Units/L [facility] AST 18 10 - 45 Units/L [facility] Blood 12/21/2022 8:08 AM CDT 12/21/2022 9:14 AM CDT us Edmond Lara MD LAB BLOOD ORDERABLES Final R esult NILSA MCDONNELL [address] Department [place], [place] [id number] * (ABNORMAL) Ferritin (12/21/2022 8:08 AM CDT) Ferritin 645(H) 15 - 150 ng/mL [facility] Blood 12/21/2022 8:08 AM CDT 12/21/2022 9:14 AM CDT us Kim Looney MD LAB BLOOD ORDERABLES Final Result Performing Organization Address City/[facility]/ZIP Co de Phone Number NILSA MCDONNELL [address] [place] [address] * (ABNORMAL) CBC without differential (12/21/2022 8:08 AM CDT) WBC 12.9(H) 3.8 - 9.9 K/cumm [facility] Hgb 6.0(C) 11.9 - 15.5 g/dL [facility] Comment:Hemoglobin delta due to active bleeding.. Critical result called to and read back by MACKENZIE SHEN on 12 21 2022 at 1001 to BRITTANY MOTA. Hct 19.3(L) 35.6 - 45.5 % [facility] Plt 361 150 - 400 K/cumm [facility] MPV 11.5 9.1 - 12.3 fL [facility] RBC 2.02(L) 3.90 - 5.20 M/cumm [facility] MCV 95.5 81.3 - 96.4 fL [facility] MCH 29.7 27.1 - 33.3 pg [facility] MCHC 31.1(L) 32.3 - 35.7 g/dL [facility] RDW CV 16.2(H) 11.1 - 14.9 % [facility] RDW SD 56.9(H) 35.7 - 48.1 fL [facility] NRBC abs 0.00 0.00 - 0.01 K/cumm [facility] Blood 12/21/2022 8:08 AM CDT 12/21/2022 9:14 AM CDT us Kim Looney MD LAB BLOOD ORDERABLES Final Result Performing Organization Address [facility] Co de Phone Number NILSA MCDONNELL [address] [facility] [place] [address] * (ABNORMAL) CRP (acute phase) (12/21/2022 8:08 AM CDT) CRP 29.4(H) <=10.0 mg/L [facility] Blood 12/21/2022 8:08 AM CDT 12/21/2022 9:14 AM CDT Sussy Calderon DO LAB BLOOD ORDERABLES Final Result Performing Organization Address [facility] Co de Phone Number NILSA MCDONNELL [address] [facility] [place] [address] * (ABNORMAL) Erythrocyte sedimentation rate (12/21/2022 8:08 AM CDT) Erythrocyte sedimentation rate >150(H) 1 - 30 mm/hr [facility] Blood 12/21/2022 8:08 AM CDT 12/21/2022 9:14 AM CDT Sussy Calderon DO LAB BLOOD ORDERABLES Final Result Performing Organization Address [facility] Co de Phone Number NILSA MCDONNELL [address] [facility] [place] [address] * POCT glucose (12/21/2022 7:46 AM CDT) Glucose, POC 156 70 - 199 mg/dL [facility] Blood 12/21/2022 7:46 AM CDT 12/21/2022 7:46 AM CDT us Barb Webb MD LAB POCT ORDERABLES - DEV ICE Final Result NILSA [address] [place] [address] * POCT glucose (12/21/2022 4:15 AM CDT) Glucose, POC 186 70 - 199 mg/dL [facility] Blood 12/21/2022 4:15 AM CDT 12/21/2022 4:15 AM CDT us Larry Dennis MD LAB POCT ORDERABLES - DEVICE Fi nal Result Performing Organization Address [facility] Co de Phone Number CARLOS ENRIQUEELLEN MCDONNELL [address] [place] [address] * (ABNORMAL) POCT glucose (12/21/2022 12:01 AM CDT) Glucose, POC 217(H) 70 - 199 mg/dL [facility] Blood 12/21/2022 12:0 1 AM CDT 12/21/2022 12:01 AM CDT us Larry Dennis MD LAB POCT ORDERABLES - DEVICE Fi nal Result Performing Organization Address City/[facility] Co de Phone Number NILSA [address] [facility] [place] [address] * Urine culture Urine, indwelling catheter (12/20/2022 10:47 PM CDT) Report Final Report: Less than 100,000 colonies/mL (clinically insignificant growth based on current clinical standards) [facility] Comment:Testing performed by : [facility], [address] [facility], [place]., [address] Organism (CLINICALLY INSIGNIFICANT GROWTH [facility] Urine, indwelling catheter 12/20/2022 10:47 PM CDT 12/21/2022 3:24 AM CDT [facility]ative [facility]/22[facility] 2:10 PM CDT Urine culture reflexed based upon urinalysis results. Testing performed by [facility] ([phone]) Rosa Jade NP LAB MICROBIOLOGY - GENERAL ORD ERABLES Final Result Performing Organization Address [facility] Co de Phone Number NILSA MCDONNELL [address] Department of Laboratories [place], [place] [id number] * (ABNORMAL) Urinalysis, microscopic only (12/20/2022 10:47 PM CDT) WBC, ur >50(A) 0 - 5 /HPF [facility] RBC, ur >50(A) 0 - 2 /HPF [facility] Yeast, ur 4+(A) [facility] Culture Reflex Comment Reflex to urine culture will be performed. [facility] Urine, indwelling catheter 12/20/2022 10:47 PM CDT 12/20/2022 10:58 PM CDT Rosa Jade NP LAB URINE ORDERABLES Final Res ult Performing Organization Address City/[facility]/ZIP Co de Phone Number CARLOS ENRIQUEELLEN MCDONNELL [address] Department of Laboratories [place], [place] [id number] * (ABNORMAL) Urinalysis reflex to microscopic and culture Urine, indwelling catheter (12/20/2022 10:47 PM CDT) Color, ur Yellow Yellow [facility] Clarity, ur Turbid(A) Clear [facility] Specific gravity, ur 1.019 1.003 - 1.030 [facility] pH, urine 5.0 [facility] Protein, ur ql 3+(A) Negative [facility] Glucose, ur ql 2+(A) Negative [facility] Ketones, ur Negative Negative [facility] Bilirubin, ur Negative Negative [facility] Blood, ur 1+(A) Negative [facility] Urobilinogen, ur <2.0 <2.0 mg/dL [facility] Nitrite, ur Negative Negative [facility] Leukocyte esterase, ur 3+(A) Negative [facility] UA reflex comment Reflex to microscopic [facility] be performed. [facility]rine, indwelling catheter 12/20/2022 10:47 PM CDT 12/20/2022 10:58 PM CDT Narrative [facility] - 12/20/2022 11:03 PM CDT ?? Urine pH is affected by diet, medications, systemic acid-base disturbances, and renal tubular function. ??pH may affect urinary stone formation. ??For example, urine pH below 6.0 may help reduce the tendency for calcium phosphate stones and pH greater than 6.0 may reduce the tendency for uric acid stone formation. Source: [facility] [place]. Last revised 07-02-2017 Rosa Jade NP LAB MICROBIOLOGY - GENERAL ORD ERABLES Final Result NILSA MCDONNELL [address] Department [place] [address] * (ABNORMAL) POCT glucose (12/20/2022 8:32 PM CDT) Glucose, POC 250(H) 70 - 199 mg/dL [facility] Blood 12/20/2022 8:32 PM CDT 12/20/2022 8:32 PM CDT Larry Dennis MD LAB POCT ORDERABLES - DEVICE Fi nal Result NILSA MCDONNELL [address] Department of [place], [place] [id number] * (ABNORMAL) Differential, auto (12/20/2022 5:34 PM CDT) Neutrophil abs 8.2(H) 1.7 - 6.5 K/cumm [facility] Imm gran abs 0.0 0.0 - 0.1 K/cumm [facility] Lymphocyte abs 1.8 0.8 - 3.3 K/cumm [facility] Monocyte abs 0.9(H) 0.2 - 0.8 K/cumm [facility] Eosinophil abs 0.3 0.0 - 0.5 K/cumm [facility] Basophil abs 0.0 0.0 - 0.1 K/cumm [facility] Neutrophil pct 72.8 % [facility] Comment: Interpretive Data Percent cell count reference ranges are not reported, since discordance with absolute values may lead to misinterpretation of CBC data. Current Interpretive Data was last revised on 2017. Imm gran pct 0.3 % [facility] Comment: Interpretive Data Percent cell count reference ranges are not reported, since discordance with absolute values may lead to misinterpretation of CBC data. Current Interpretive Data was last revised on 2017. Lymphocyte pct 16.1 % [facility] Comment: Interpretive Data Percent cell count reference ranges are not reported, since discordance with absolute values may lead to misinterpretation of CBC data. Current Interpretive Data was last revised on 2017. Monocyte pct 8.3 % [facility] Comment: Interpretive Data Percent cell count reference ranges are not reported, since discordance with absolute values may lead to misinterpretation of CBC data. Current Interpretive Data was last revised on 2017. Eosinophil pct 2.2 % [facility] Comment: Interpretive Data Percent cell count reference ranges are not reported, since discordance with absolute values may lead to misinterpretation of CBC data. Current Interpretive Data was last revised on 2017. Basophil pct 0.3 % [facility] Comment: Interpretive Data Percent cell count reference ranges are not reported, since discordance with absolute values may lead to misinterpretation of CBC data. Current Interpretive Data was last revised on 2017. Blood 12/20/2022 5:34 PM CDT 12/20/2022 5:34 PM CDT us Celsa Pedraza NP LAB BLOOD ORDERABLES Final Resul t NILSA MCDONNELL [id number] Department [place] [address] * (ABNORMAL) CBC with auto differential (12/20/2022 5:34 PM CDT) WBC 11.3(H) 3.8 - 9.9 K/cumm [facility] Hgb 9.3(L) 11.9 - 15.5 g/dL [facility] Hct 29.5(L) 35.6 - 45.5 % [facility] Plt 334 150 - 400 K/cumm [facility] MPV 11.1 9.1 - 12.3 [facility]L [facility] 3.08(L) 3.90 - 5.20 M/cumm [facility] MCV 95.8 81.3 - 96.4 fL [facility] MCH 30.2 27.1 - 33.3 pg [facility] MCHC 31.5(L) 32.3 - 35.7 g/dL [facility] RDW CV 16.2(H) 11.1 - 14.9 % [facility] RDW SD 57.0(H) 35.7 - 48.1 fL [facility] NRBC abs 0.00 0.00 - 0.01 K/cumm [facility] Blood 12/20/2022 5:34 PM CDT 12/20/2022 5:34 PM CDT us Celsa Pedraza [employer] LAB BLOOD ORDERABLES Final Resul t NILSA KECIA [id number] Department [place] [address] * (ABNORMAL) POCT glucose (12/20/2022 5:29 PM CDT) Glucose, POC 261(H) 70 - 199 mg/dL [facility] Blood 12/20/2022 5:29 PM CDT 12/20/2022 5:29 PM CDT us Larry Dennis MD LAB POCT ORDERABLES - DEVICE Fi nal Result NILSA MCDONNELL [address] Department [place] [address] * Blood culture Blood Hand, right (12/20/2022 4:48 PM CDT) Report Final Report: No growth NILSA MCDONNELL Comment:Testing performed by : [facility], [address] [facility], [place]., [address] Blood (Hand, right) 12/20/2022 4:48 PM CDT 12/20/2022 8:36 PM CDT Narrative NILSA MCDONNELL - 12/25/2022 7:01 AM CDT From a different site than [...] organism identification may be performed using the Pontabaigene Gram-Positive Blood Culture Assay. This assay detects microbial DNA in positive blood culture broth via hybridization of target DNA to capture oligonucleotides on a microarray. This assay has been cleared by the [place] Food and Drug Administration and its performance characteristics have been verified by the [facility]. 5. ?For questions about this culture, contact the Microbiology Laboratory at [phone]. Interpretive data was last revised on 2019. Celsa Pedraza NP LAB MICROBIOLOGY - GENERAL ORDER ARIADNA Final Result NILSA MCDONNELL [address] Department [place] [address] * Blood culture Blood Arm, right (12/20/2022 4:48 PM CDT) Report Final Report: No growth NILSA MCDONNELL Comment:Testing performed by : [facility], [address] [facility], [place]., [address] Blood (Arm, right) 12/20/2022 4:48 PM CDT 12/20/2022 8:42 PM CDT Narrative NILSA MCDONNELL - 12/25/2022 7:01 AM CDT Received only aerobic blood culture bottle Collection->Peripheral 1. ?Blood cultures are incubated for [...] organism identification may be performed using the Pontabaigene Gram-Positive Blood Culture Assay. This assay detects microbial DNA in positive blood culture broth via hybridization of target DNA to capture oligonucleotides on a microarray. This assay has been cleared by the [place] Food and Drug Administration and its performance characteristics have been verified by the [facility]. 5. ?For questions about this culture, contact the Microbiology Laboratory at [phone]. Interpretive data was last revised on 2019. Celsa Pedraza NP LAB MICROBIOLOGY - GENERAL ORDER ARIADNA Final Result NILSA MCDONNELL [address] Department [place] [address] * POCT glucose (12/20/2022 12:21 PM CDT) Glucose, POC 187 70 - 199 mg/dL [facility] Blood 12/20/2022 12:2 1 PM CDT 12/20/2022 12:21 PM CDT Larry Dennis MD LAB POCT ORDERABLES - DEVICE Fi nal Result NILSA [address] Department [place] [address] * (ABNORMAL) POCT glucose (12/20/2022 5:51 AM CDT) Glucose, POC 226(H) 70 - 199 mg/dL [facility] Blood 12/20/2022 5:51 AM CDT 12/20/2022 5:51 AM CDT Edmond Lara MD LAB POCT ORDERABLES - DEVICE Final Result Performing Organization Address [facility] Co de Phone Number [facility] [id number] [place] [address] documented in this encounter Visit Diagnoses Diagnosis GI bleed- Primary Unspecified, hemorrhage of gastrointestinal tract Weakness Other malaise and fatigue Anemia Unspecified anemia Bandemia Osteomyelitis of great toe of right foot ([facility]/HCC) ([facility]) Late onset Alzheimer's dementia without behavioral disturbance ([facility]) 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 2 diabetes mellitus ([facility]/HCC) (HCC) Hyperlipidemia associated with type 2 diabetes mellitus (HCC) Hypertension associated with diabetes ([facility]) Unspecified essential hypertension Schizoaffective disorder, bipolar type ([facility]) ([facility]) Schizoaffective disorder, unspecified condition CLEMENTE (acute kidney injury) ([facility]) Type 2 diabetes mellitus with diabetic neuropathy, with long-term current use of insulin ([facility]) Anemia, unspecified type Gastritis without bleeding, unspecified chronicity, unspecified gastritis type documented in this encounter Admitting Diagnoses Diagnosis GI bleed Unspecified, hemorrhage of gastrointestinal tract documented in this encounter Administered Medications Inactive Administered Medications - up to 3 most recent administrations Medication Order MAR Action Action Date Dose Rate Site amLODIPine (NORVASC) tablet 10 mg 10 mg, oral, Nightly, First dose on 12/20/22 at 2100 Given 12/22/2022 9:54 PM CDT 10 mg Given 12/21/2022 10:31 PM CDT 10 mg Given 12/20/2022 9:04 PM CDT 10 mg benztropine (COGENTIN) tablet 1.5 mg 1.5 mg, oral, Nightly, First dose on 12/20/22 at 2100 Given 12/29/2022 9:40 PM CDT 1.5 mg Given 12/28/2022 9:53 PM CDT 1.5 mg Given 12/27/2022 9:13 PM CDT 1.5 mg Carrier Fluids for Secondary Infusion - 0.9% Sodium Chloride 30 mL, intravenous, As needed, For priming tubing and/or flushing, Starting on 12/20/22 at 0800, 0-250 ml/hr to flush line after IV infusions when no maintenance IV ordered. Infuse 30mL at the same rate as the secondary infusion. Run as primary IV, not intended for KVO. carvediloL (COREG) tablet 6.25 mg 6.25 mg, oral, 2 times daily with meals (bkfst, dinner), First dose on 12/20/22 at 0800 Given 12/22/2022 5:12 PM CDT 6.25 mg Given 12/22/2022 8:58 AM CDT 6.25 mg Given 12/21/2022 5:27 PM CDT 6.25 mg cefTRIAXone (ROCEPHIN) 1,000 mg/10 mL in sterile water (premix) 1,000 mg 1,000 mg, intravenous, at 600 mL/hr, Administer over 1 Minutes, Every 24 hours scheduled, First dose on 12/20/22 at 1045, Indications: Urinary Tract/Genitourinary InfectionIndications:Urinary Tract/Genitourinary Infection Given 12/21/2022 8:55 AM CDT 1,000 mg 6 00 mL/hr Given 12/20/2022 12:26 PM CDT 1,000 mg 600 mL/hr DAPTOmycin (CUBICIN) 50 mg/mL sodium chloride 0.9% 350 mg 350 mg, intravenous, at 210 mL/hr, Administer over 2 Minutes, Every 48 hours, First dose on 12/20/22 at 0900, For 5 days, Do not administer or mix with dextrose-containing solutions, Indications: Bone/Joint InfectionIndications:Bone/Joint Infection Given 12/24/2022 8:01 AM CDT 350 mg 210 mL/hr Given 12/22/2022 8:58 AM CDT 350 mg 210 mL/hr Given 12/20/2022 10:01 AM CDT 350 mg 210 mL/hr dextrose (D10W) 10% bolus 250 mL 250 mL, intravenous, at 1,000 mL/hr, Administer over 15 Minutes, Every 15 min PRN, blood glucose less than 70 mg/dL and UNABLE to swallow/take PO glucose/juice., Starting on 12/20/22 at 1118, After treatment for hypoglycemia, recheck BG followed by treatment every 15 minutes until the BG is greater than 100 mg/dL. Then check BG 1 hour post treatment. If BG is less than 100 mg/dL, repeat Q15 minute BG checks and treatment. Call MD for each episode of hypoglycemia., Indications: hypoglycemic disorderIndications:hypoglycem ic disorder dextrose oral liquid liquid 15 g 15 g, oral, Every 15 min PRN, low blood sugar, blood glucose less than 70 mg/dL, Starting on 12/20/22 at 1118, If patient is alert and able to [...] of hypoglycemia., Indications: hypoglycemic disorderIndications:hypoglycem ic disorder famotidine (PEPCID) tablet 10 mg 10 mg, oral, Daily, First dose on 12/20/22 at 0900 Given 12/20/2022 10:01 AM CDT 10 mg ferrous sulfate delayed release tablet 65 mg of elemental iron 65 mg of elemental iron, oral, Daily with breakfast, First dose on 12/20/22 at 0800, 325 MG OF FERROUS SULFATE = 65 MG OF ELEMENTAL IRON, Indications: Iron Deficiency AnemiaIndications:Iron Deficiency Anemia Given 12/30/2022 8:41 AM CDT 65 mg of elemental iron Given 12/29/2022 8:55 AM CDT 65 mg of elemental iron Given 12/28/2022 8:51 AM CDT 65 mg of elemental iron furosemide (LASIX) tablet 60 mg 60 mg, oral, 2 times daily, First dose on 12/20/22 at 0900 Given 12/21/2022 8:55 AM CDT 60 mg Given 12/20/2022 9:04 PM CDT 60 mg Given 12/20/2022 10:01 AM CDT 60 mg glucagon injection 1 mg 1 mg, intramuscular, Every 30 min PRN, low blood sugar, blood glucose less than 70 mg/dL AND no IV access AND unable to take PO glucose/juice., Starting on 12/20/22 at 1118, After Glucagon is administered, position patient on [...] mL SWFI. Use immediately following reconstitution. heparin 5,000 unit/mL injection 5,000 Units 5,000 Units, subcutaneous, Every 8 hours scheduled, First dose on 12/20/22 at 0630, Indications: Deep Vein Thrombosis PreventionIndications:Deep Vein Thrombosis Prevention Given 12/30/2022 1:16 PM CDT 5,000 Units Left Lower Abdomen Given 12/30/2022 5:00 AM CDT 5,000 Units R ight Lower Abdomen Given 12/29/2022 9:39 PM CDT 5,000 Units L eft Lower Abdomen hydrocortisone (ANUSOL-HC) suppository 25 mg 25 mg, rectal, 2 times daily, First dose on 12/20/22 at 1430, For 14 days Given 12/30/2022 8:41 AM CDT 25 mg Given 12/29/2022 9:40 PM CDT 25 mg Given 12/29/2022 8:55 AM CDT 25 mg insulin glargine (LANTUS, SEMGLEE) 100 unit/mL injection 10 Units 10 Units, subcutaneous, Nightly, First dose (after last modification) on Thu12/26/22 at 2100, Do not mix with other insulins Given 12/29/2022 9:40 PM CDT 10 Units Right Upper Arm Given 12/28/2022 9:54 PM CDT 10 Units Ri ght Upper Arm Given 12/27/2022 9:13 PM CDT 10 Units Le ft Lower Abdomen insulin glargine (LANTUS, SEMGLEE) 100 unit/mL injection 5 Units 5 Units, subcutaneous, Nightly, First dose on Thu12/20/22 at 2100, Do not mix with other insulins Given 12/23/2022 9:19 PM CDT 5 Units Right Upper Arm Given 12/22/2022 9:51 PM CDT 5 Units Ri ght Upper Arm Given 12/21/2022 10:34 PM CDT 5 Units R ight Lower Abdomen insulin glargine (LANTUS, SEMGLEE) 100 unit/mL injection 8 Units 8 Units, subcutaneous, Nightly, First dose (after last modification) on Thu12/24/22 at 2100, Do not mix with other insulins Given 12/25/2022 9:55 PM CDT 8 Units Left Lower Abdomen Given 12/24/2022 9:01 PM CDT 8 Units Ri ght Lower Abdomen insulin lispro (HumaLOG, ADMELOG) 100 unit/mL injection 0-5 Units 0-5 Units, subcutaneous, Every 4 hours scheduled, First dose on Thu12/20/22 at 1200, Blood glucose mg/dL: 149 or less: No [...] NPO Status, Indications: Diabetes MellitusIndications:Diabetes Mellitus Given 12/30/2022 1:15 PM CDT 2 Units Left Upper Arm Given 12/30/2022 8:40 AM CDT 1 Units Le ft Upper Arm Given 12/30/2022 4:59 AM CDT 1 Units Ri ght Upper Arm metroNIDAZOLE (FLAGYL) tablet 500 mg 500 mg, oral, 3 times daily, First dose on Thu12/20/22 at 0900, For 4 days, Indications: Bone/Joint InfectionIndications:Bone/Joint Infection Given 12/23/2022 9:18 PM CDT 500 mg Given 12/23/2022 3:18 PM CDT 500 mg Given 12/23/2022 9:12 AM CDT 500 mg midodrine (PROAMATINE) tablet 10 mg 10 mg, oral, 3 times daily before meals, First dose on Thu12/23/22 at 1515, Indications: Symptomatic Orthostatic HypotensionIndications:Symptomatic Orthostatic Hypotension Given 12/25/2022 1:19 PM CDT 10 mg Given 12/24/2022 4:48 PM CDT 10 mg Given 12/24/2022 11:16 AM CDT 10 mg ondansetron (ZOFRAN) injection 4 mg 4 mg, intravenous, Administer over 2 Minutes, Every 6 hours PRN, nausea, vomiting, if not tolerating PO, Starting on Thu12/20/22 at 0546, Indications: Nausea and VomitingIndications:Nausea and Vomiting ondansetron ODT (ZOFRAN-ODT) disintegrating tablet 4 mg 4 mg, oral, Every 6 hours PRN, nausea, vomiting, Starting on Thu12/20/22 at 0546, Indications: Nausea and VomitingIndications:Nausea and Vomiting pantoprazole (PROTONIX) 4 mg/mL injection 40 mg 40 mg, intravenous, Administer over 2 Minutes, 2 times daily, First dose on Thu12/20/22 at 1215, For IV Push administration for adults- 40 mg vial: add 10 mL of sodium chloride 0.9% to achieve a final concentration of 4 mg/mL, Indications: GI BleedIndications:GI Bleed Given 12/23/2022 9:13 AM CDT 40 mg Given 12/22/2022 9:54 PM CDT 40 mg Given 12/22/2022 8:58 AM CDT [address] (PROTONIX) extended release tablet 40 mg 40 mg, oral, 2 times daily, First dose on Thu12/23/22 at 2100, This med changed from IV to PO per P&T IV to Enteral Conversion Policy Do not crush, chew, cut, dissolve, open or otherwise manipulate tablet/capsule., Indications: GI BleedIndications:GI Bleed Given 12/30/2022 8:41 AM CDT 40 mg Given 12/29/2022 9:40 PM CDT 40 mg Given 12/29/2022 8:55 AM CDT 40 mg phenylephrine 0.25%-mineral oil 14%-petrolatum 74.9% ointment rectal, 4 times daily PRN, hemorrhoids, Starting on 12/20/22 at 1358 pregabalin (LYRICA) capsule 75 mg 75 mg, oral, Nightly, First dose on 12/20/22 at 2100 Given 12/29/2022 9:40 PM CDT 75 mg Given 12/28/2022 9:54 PM CDT 75 mg Given 12/27/2022 9:13 PM CDT 75 mg prochlorperazine (COMPAZINE) injection 5 mg 5 mg, intravenous, Administer over 2 Minutes, Every 6 hours PRN, nausea, vomiting, Use if unable to tolerate PO. 2nd line, Starting on 12/20/22 at 0800, Indications: Nausea and VomitingIndications:Nausea and Vomiting prochlorperazine (COMPAZINE) tablet 5 mg 5 mg, oral, Every 6 hours PRN, nausea, vomiting, 2nd line, Starting on 12/20/22 at 0800, Indications: Nausea and VomitingIndications:Nausea and Vomiting sodium bicarbonate tablet 1,300 mg 1,300 mg, oral, 3 times daily, First dose on Thu12/24/22 at 1600 Given 12/27/2022 8:47 AM CDT 1,300 mg Given 12/26/2022 8:59 PM CDT 1,300 mg Given 12/26/2022 3:57 PM CDT 1,300 mg sodium bicarbonate tablet 650 mg 650 mg, oral, 2 times daily, First dose (after last modification) on Thu12/28/22 at 0900 Given 12/28/2022 8:51 AM CDT 650 mg sodium chloride 0.9% flush 0.5-20 mL 0.5-20 mL, intra-catheter, Every 8 hours scheduled, First dose on 12/20/22 at 0845, Flush volume based on line type and size. Given 12/30/2022 1:16 PM CDT 10 mL Given 12/29/2022 10:10 PM CDT 10 mL Given 12/29/2022 3:35 PM CDT 10 mL sodium chloride 0.9% flush 0.5-20 mL 0.5-20 mL, intra-catheter, As needed, line care, Starting on 12/20/22 at 0800, Flush volume based on line type and size. Flush before and after each use. sodium chloride 0.9% infusion 125 mL/hr, intravenous, Continuous, Starting on Thu12/21/22 at 2215, For 8 hours New Bag 12/21/2022 10:46 PM CDT 125 mL/hr 12 5 mL/hr sodium chloride 0.9% infusion 125 mL/hr, intravenous, Continuous, Starting on Thu12/22/22 at 1600, For 8 hours New Bag 12/22/2022 3:58 PM CDT 125 mL/hr 125 mL/hr sodium chloride 0.9% infusion 125 mL/hr, intravenous, Continuous, Starting on Thu12/23/22 at 1600, For 48 hours New Bag 12/25/2022 7:53 AM CDT 125 mL/hr 12 5 mL/hr New Bag 12/24/2022 11:31 PM CDT 125 mL/hr 125 mL/hr New Bag 12/24/2022 2:02 PM CDT 125 mL/hr 125 mL/hr documented in this encounter Discontinued Medications Medication Sig Discontinue Reason Start Date End Da te risperiDONE (RisperDAL) 2 mg tablet Take 1 tablet (2 mg total) by mouth nightly Stop Taking at Discharge 11/13/2022 12/30/2022 ascorbic acid 500 mg tablet,chewable Take 1 tablet/chew tab (500 mg total) by mouth 2 (two) times a day Stop Taking at Discharge 12/30/2022 bisacodyL (DULCOLAX) 10 mg suppositoryIndicatio ns:constipation Insert 1 suppository (10 mg total) into the rectum daily as needed for constipation Stop Taking at Discharge 12/30/2022 bisacodyL (FLEET-BISACODYL) 10 mg/30 mL enema Insert 30 mL (10 mg total) into the rectum daily as needed for constipation (if no results 24 hours after suppository) Stop Taking at Discharge 12/30/2022 famotidine (PEPCID) 10 mg tablet Take 1 tablet (10 mg total) by mouth daily Stop Taking at Discharge 12/30/2022 Saccharomyces boulardii (FLORASTOR) 250 mg capsule Take 1 capsule (250 mg total) by mouth 2 (two) times a day while receiving antibiotic therapy Stop Taking at Discharge 11/14/2022 12/30/2022 insulin lispro (HumaLOG, ADMELOG) 100 unit/mL pen for injection Inject 7 Units under the skin 3 (three) times a day before meals plus sliding scale Stop Taking at Discharge 12/05/2022 12/30/2022 vancomycin (VANCOCIN) 1,000 mg injection Continue until 12/23 Stop Taking at Discharge 12/10/2022 12/30/2022 carvediloL (COREG) 6.25 mg tablet Take 1 tablet (6.25 mg total) by mouth 2 (two) times a day with meals Stop Taking at Discharge 12/11/2022 12/30/2022 metroNIDAZOLE (FLAGYL) 500 mg tabletIndications:Duglas ne/Joint Infection Take 1 tablet (500 mg total) by mouth 3 (three) times a day for 13 days Stop Taking at Discharge 12/11/2022 12/30/2022 amLODIPine (NORVASC) 10 mg tablet Take 1 tablet (10 mg total) by mouth nightly Stop Taking at Discharge 12/15/2022 12/30/2022 furosemide (LASIX) 20 mg tablet Take 3 tablets (60 mg total) by mouth 2 (two) times a day Stop Taking at Discharge 12/15/2022 12/30/2022 aspirin 81 mg chewable tablet Take 1 tablet (81 mg total) by mouth daily Stop Taking at Discharge 12/19/2022 12/30/2022 DAPTOmycin (CUBICIN) 50 mg/mL injectionIndications :Bone/Joint Infection Infuse 7.4 mL (370 mg total) into a venous catheter every other day for 7 days Stop Taking at Discharge 12/18/2022 12/30/2022 documented as of this encounter Active and Recently Administered Medications Times are shown in CDT. Scheduled Medication Order 12/28/2022 12/29/2022 12/30/2022 atorvastatin (LIPITOR) tablet 20 mg 20 mg, oral, Nightly, First dose on 12/20/22 at 2100, On hold since 12/20/2022 at 1148 until manually unheld 2099 (Not Given - Provider: Manjinder Gutiérrez RN - Reason: Other - Comment: held by provider) 2099 (Not Given - Provider: Manjinder Gutiérrez RN - Reason: Other - Comment: held by provider) 2030 (Unheld by Provider - Provider: Automatic Discharge Provider) benztropine (COGENTIN) tablet 1.5 mg 1.5 mg, oral, Nightly, First dose on 12/20/22 at 2100 215 (Given - Provider: Manjinder Gutiérrez RN) 2139 (Given - Provider: Manjinder Gutiérrez RN) ferrous sulfate delayed release tablet 65 mg of elemental iron 65 mg of elemental iron, oral, Daily with breakfast, First dose on 12/20/22 at 0800, 325 MG OF FERROUS SULFATE = 65 MG OF ELEMENTAL IRON, Indications: Iron Deficiency Anemia 0851 (Given - Provider: Marilyn Boykin) 0855 (Given - Provider: Marilyn Boykin) 0841 (Given - Provider: Dinora Swanson, ALIREZA) heparin 5,000 unit/mL injection 5,000 Units 5,000 Units, subcutaneous, Every 8 hours scheduled, First dose on 12/20/22 at 0630, Indications: Deep Vein Thrombosis Prevention 0502 (Given - Provider: Abram Hampton)1421 (Given - Provider: Marilyn Boykin)2154 (Given - Provider: Manjinder Gutiérrez RN) 0634 (Given - Provider: Manjinder Gutiérrez RN)1500 (Given - Provider: Marilyn Boykin)2139 (Given - Provider: Manjinder Gutiérrez RN) 0500 (Given - Provider: Manjinder Gutiérrez RN)1316 (Given - Provider: Dinora Swanson, ALIREZA) hydrocortisone (ANUSOL-HC) suppository 25 mg 25 mg, rectal, 2 times daily, First dose on 12/20/22 at 1430, For 14 days 0851 (Given - Provider: Marilyn Boykin)2153 (Given - Provider: Manjinder Gutiérrez RN) 0855 (Given - Provider: Marilyn Boykin)2140 (Given - Provider: Manjinder Gutiérrez RN) 0841 (Given - Provider: Dinora Swanson, ALIREZA) insulin glargine (LANTUS, SEMGLEE) 100 unit/mL injection 10 Units 10 Units, subcutaneous, Nightly, First dose (after last modification) on Thu12/26/22 at 2100, Do not mix with other insulins 2153 (Given - Provider: Manjinder Gutiérrez RN) 2139 (Given - Provider: Manjinder Gutiérrez RN) insulin lispro (HumaLOG, ADMELOG) 100 unit/mL injection 0-5 Units 0-5 Units, subcutaneous, Every 4 hours scheduled, First dose on Thu12/20/22 at 1200, Blood glucose mg/dL: 149 or less: No insulin 150-199: add 1 unit 200-249: add 2 units 250-299: add 3 units 300-349: add 4 units and notify physician for adjustment of insulin orders. 350-399: add 5 units and notify physician for adjustment of insulin orders. Over 400: Notify physician for adjustment of insulin orders. Do NOT hold for NPO Status, Indications: Diabetes Mellitus 0003 (Given - Provider: Abram Hampton)0508 (Not Given - Provider: Abram Hampton - Reason: Order parameters not met)0748 (Not Given - Provider: Marilyn Boykin - Reason: Order parameters not met)1215 (Given - Provider: Marilyn Boykin)1732 (Given - Provider: Marilyn Boykin)2154 (Given - Provider: Manjinder Gutiérrez RN)2338 (Given - Provider: Manjinder Gutiérrez RN) 0436 (Given - Provider: Manjinder Gutiérrez RN)0855 (Given - Provider: Marilyn Boykin)1208 (Given - Provider: Marilyn Boykin)1750 (Given - Provider: Marilyn Boykin)2140 (Given - Provider: Manjinder Gutiérrez, ALIREZA) 0057 (Given - Provider: Manjinder Gutiérrez, ALIREZA)0459 (Given - Provider: Manjinder Gutiérrez RN)0840 (Given - Provider: Dinora Swanson, ALIREZA)1315 (Given - Provider: Dinora Swanson, RN)1600 (Due) pantoprazole DR (PROTONIX) extended release tablet 40 mg 40 mg, oral, 2 times daily, First dose on Thu12/23/22 at 2100, This med changed from IV to PO per P&T IV to Enteral Conversion Policy Do not crush, chew, cut, dissolve, open or otherwise manipulate tablet/capsule., Indications: GI Bleed 0851 (Given - Provider: Marilyn Boykin)2153 (Given - Provider: Manjinder Gutiérrez, ALIREZA) 0855 (Given - Provider: Marilyn Boykin)2140 (Given - Provider: Manjinder Gutiérrez RN) 0841 (Given - Provider: Dinora Swanson, RN) pregabalin (LYRICA) capsule 75 mg 75 mg, oral, Nightly, First dose on 12/20/22 at 2100 2154 (Given - Provider: Manjinder Gutiérrez RN) 2140 (Given - Provider: Manjinder Gutiérrez RN) sodium bicarbonate tablet 650 mg (CANCELED) 650 mg, oral, 2 times daily, First dose (after last modification) on 12/28/22 at 0900 0851 (Given - Provider: Marilyn Boykin) sodium chloride 0.9% flush 0.5-20 mL 0.5-20 mL, intra-catheter, Every 8 hours scheduled, First dose on 12/20/22 at 0845, Flush volume based on line type and size. 0502 (Given - Provider: Abram Hampton)1448 (Given - Provider: Marilyn Boykin)2202 (Given - Provider: Manjinder Gutiérrez RN) 0436 (Given - Provider: Manjinder Gutiérrez RN)1535 (Given - Provider: Marilyn Boykin)2210 (Given - Provider: Manjinder Gutiérrez RN) 0445 (Not Given - Provider: Manjinder Gutiérrez RN - Reason: Other)1316 (Given - Provider: Dinora Swanson, RN) PRN Medication Order 12/28/2022 12/29/2022 12/30/2022 acetaminophen (TYLENOL) tablet 650 mg 650 mg, oral, Every 4 hours PRN, 1st line for pain, fever, fever greater than 38.3 C, Starting on 12/20/22 at 0547, Indications: Fever, Pain albuterol HFA (PROVENTIL HFA,VENTOLIN HFA,PROAIR HFA) 90 mcg/actuation inhaler 2 puff 2 puff, inhalation, Every 4 hours PRN (thermal engineer), wheezing, shortness of breath, Starting on 12/20/22 at 0557 Carrier Fluids for Secondary Infusion - 0.9% Sodium Chloride 30 mL, intravenous, As needed, For priming tubing and/or flushing, Starting on 12/20/22 at 0800, 0-250 ml/hr to flush line after IV infusions when no maintenance IV ordered. Infuse 30mL at the same rate as the secondary infusion. Run as primary IV, not intended for KVO. dextrose (D10W) 10% bolus 250 mL(Linked Group 1) 250 mL, intravenous, at 1,000 mL/hr, Administer over 15 Minutes, Every 15 min PRN, blood glucose less than 70 mg/dL and UNABLE to swallow/take PO glucose/juice., Starting on 12/20/22 at 1118, After treatment for hypoglycemia, recheck BG followed [...] glucose less than 70 mg/dL, Starting on 12/20/22 at 1118, If patient is alert and able to [...] unable to take PO glucose/juice., Starting on 12/20/22 at 1118, After Glucagon is administered, position patient on [...] reconstitution. ondansetron (ZOFRAN) injection 4 mg(Linked Group 2) 4 mg, intravenous, Administer over 2 Minutes, Every 6 hours PRN, nausea, vomiting, if not tolerating PO, Starting on 12/20/22 at 0546, Indications: Nausea and Vomiting ondansetron ODT (ZOFRAN-ODT) disintegrating tablet 4 mg(Linked Group 2) 4 mg, oral, Every 6 hours PRN, nausea, vomiting, Starting on 12/20/22 at 0546, Indications: Nausea and Vomiting phenylephrine 0.25%-mineral oil 14%-petrolatum 74.9% ointment rectal, 4 times daily PRN, hemorrhoids, Starting on 12/20/22 at 1358 prochlorperazine (COMPAZINE) injection 5 mg(Linked Group 3) 5 mg, intravenous, Administer over 2 Minutes, Every 6 hours PRN, nausea, vomiting, Use if unable to tolerate PO. 2nd line, Starting on 12/20/22 at 0800, Indications: Nausea and Vomiting prochlorperazine (COMPAZINE) tablet 5 mg(Linked Group 3) 5 mg, oral, Every 6 hours PRN, nausea, vomiting, 2nd line, Starting on 12/20/22 at 0800, Indications: Nausea and Vomiting ramelteon (ROZEREM) tablet 8 mg 8 mg, oral, Nightly PRN, sleep, Starting on 12/20/22 at 0547, Indications: Sleep-Onset Insomnia senna-docusate (PERICOLACE) 8.6-50 mg per tablet 1 tablet 1 tablet, oral, 2 times daily PRN, constipation, Starting on 12/20/22 at 0546, Indications: constipation sodium chloride 0.9% flush 0.5-20 mL 0.5-20 mL, intra-catheter, As needed, line care, Starting on 12/20/22 at 0800, Flush volume based on line type and size. Flush before and after each use. Linked Groups Order Group 1: dextrose oral liquid liquid 15 gJump to med 15 g, oral, Every 15 min PRN, low blood sugar, blood glucose less than 70 mg/dL, Starting on 12/20/22 at 1118, If patient is alert and able to [...] UNABLE to swallow/take PO glucose/juice., Starting on 12/20/22 at 1118, After treatment for hypoglycemia, recheck BG followed [...] 6 hours PRN, nausea, vomiting, Starting on 12/20/22 at 0546, Indications: Nausea and Vomiting Or ondansetron (ZOFRAN) injection 4 mgJump to med 4 mg, intravenous, Administer over 2 Minutes, Every 6 hours PRN, nausea, vomiting, if not tolerating PO, Starting on 12/20/22 at 0546, Indications: Nausea and Vomiting Group 3: prochlorperazine (COMPAZINE) tablet 5 mgJump to med 5 mg, oral, Every 6 hours PRN, nausea, vomiting, 2nd line, Starting on 12/20/22 at 0800, Indications: Nausea and Vomiting Or prochlorperazine (COMPAZINE) injection 5 mgJump to med 5 mg, intravenous, Administer over 2 Minutes, Every 6 hours PRN, nausea, vomiting, Use if unable to tolerate PO. 2nd line, Starting on 12/20/22 at 0800, Indications: Nausea and Vomiting documented in this encounter Orders Medications Ordered That Flip ht Not Have Been Administered Count Last Ordered Date First Ordered Date midodrine (PROAMATINE) tablet 5 mg 1 2022 cefTRIAXone (ROCEPHIN) 1,000 mg/10 mL in sterile water (premix) 1,000 mg 1 12/24/2022 sodium chloride 0.9% infusion 1 12/23/2022 cefepime (MAXIPIME) 1,000 mg in sodium chloride 0.9% 100 mL IVPB 1 12/21/2022 furosemide (LASIX) tablet 40 mg 1 3 acetaminophen (TYLENOL) tablet 650 mg 1 06/2022 albuterol HFA (PROVENTIL HFA ,VENTOLIN HFA,PROAIR HFA) 90 mcg/actuation inhaler 2 puff 1 12/20/2022 atorvastatin (LIPITOR) tablet 20 mg 1 12/20 Carrier Fluids for Secondary Infusion - 0.9% Sodium Chloride 12/20/2022 dextrose (D10W) 10% bolus 250 mL 12/21/19 dextrose oral liquid liquid 15 g 12/21/19 23 epoetin isaiah-epbx (RETACRIT) (10,000 unit/mL) injection 10,000 Units 12/20/2022 glucagon injection 1 mg 1 12/20/2022 ondansetron (ZOFRAN) injection 4 mg 12/20 ondansetron ODT (ZOFRAN-ODT) disintegrating tablet 4 mg 12/20/2022 phenylephrine 0.25%-mineral oil 14%-petrolatum 74.9% ointment 1 12/20/2022 prochlorperazine (COMPAZINE) injection 5 mg 1 12/20/2022 prochlorperazine (COMPAZINE) tablet 5 mg 1 12/20/2022 ramelteon (ROZEREM) tablet 8 mg 1 3 senna-docusate (PERICOLACE) 8.6-50 mg per tablet 1 tablet 1 12/20/2022 sodium chloride 0.9% flush 0.5-20 mL 1 06/2022 vancomycin (VANCOCIN) solution 1,000 mg 1 0 12/20/2022 Lab Orders Without Results Count Last Ordered D ate First Ordered Date POCT GLUCOSE DEVICE 42 12/30/2022 12/21/19 Diet Count Last Ordered Date First Orde red Date ADULT DISCHARGE DIET 1 12/30/2022 Nursing Count Last Ordered Date First Orde red Date DISCHARGE ACTIVITY 1 12/30/2022 DISCHARGE CALL PROVIDER 8 12/30/2022 DISCHARGE INSTRUCTIONS 1 12/30/2022 Consult Count Last Ordered Date First Orde red Date IP CONSULT TO SOCIAL WORK 1 12/22/2022 Consult to Podiatry 1 12/20/2022 IP CONSULT TO GASTROENTEROLOGY 1 12/20/2022 IP CONSULT TO INFECTIOUS DISEASES 1 023 IP CONSULT TO NEPHROLOGY 1 12/20/2022 IP CONSULT TO SPIRITUAL CARE 1 12/20/2022 Admission Count Last Ordered Date First Orde red Date ADMIT TO INPATIENT 1 12/20/2022 Discharge Count Last Ordered Date First Orde red Date DISCHARGE PATIENT 1 12/30/2022 CORE MEASURES Count Last Ordered Date First Ord ered Date REASON FOR NO VTE PROPHYLAXIS AT ADMISSION 1 12/20/2022 ADT Patient Update Count Last Ordered Date Firs t Ordered Date PROVIDER TREATMENT TEAM 1 12/20/2022 documented in this encounter Additional Health Concerns Infection Onset Date Last Indicated Resolved Time MRSA Comment:Toe 11/08/22, 12/12/22 11/08/2022 12/12/2022 06/10/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
--- OUTSIDE RECORDS SUMMARY | 2024-07-04 04:09 | XMS_ITS | Encounter Summary ---
Author Organization [facility] Healthcare Address [address] [place] [address] Care Team Providers Care J2Ee Software Engineer Name Role Phone Cherelle Corcoran MD Primary Care Pro vider Mark Queen MD Unavailable + [phone] Anam Costa [facility] Unavailable Unavailabl e Rudolph Welch MD Unavailable [phone] Markie Ryan MD Unavailable [phone] Reason for Visit * MRI/CAT/PET Scan (Routine) - Closed Specialty Diagnoses / Procedures Referred By Contac t Referred To Contact Procedures MSK CT Outside Reference Miscellaneous, Not In File Referral ID Status Reason Start Date Expiration Date Visits Re quested Visits Authorized [id number] Closed 01/08/2023 02/07/2024 1 1 Encounter Details Date Type Department Care Team (Late st Contact Info) Description 12/19/2022 7:40 PM CDT Ancillary Procedure [facility] Outside Films [...] often do you attend chur ch or jainism services? Never 12/08/2022 Do you belong to [...] slept in a assisted (including now)? 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 Gender Identity Female 02/08/2020 6:39 PM CDT Sexual Orientation Not on file documented as of this encounter Plan of Treatment Upcoming Encounters Date Type Department Care Team (Latest Contact Info) Description 07/13/2024 9:00 AM AUTOMOBILE REPOSSESSOR Hospital Encounter [facility] [address] [place] [address] Jaya Grier MD [address] [place] [address] [address] GA[address] [place] [phone] 07/13/2024 9:00 AM AUTOMOBILE REPOSSESSOR - 07/13/2024 9:30 AM AUTOMOBILE REPOSSESSOR Surgery [facility] [address] [place] [address] Jaya Grier MD [facility] [address] [place] [phone] ESOPHAGOGASTRODUODENOSCOPY Scheduled Procedures Name Priority Associated Diagnoses Date/Ti nv ESOPHAGOGASTRODUODENOSCOPY Anemia, unspecified type Gastritis without bleeding, unspecified chronicity, unspecified gastritis type 07/13/2024 9:00 AM AUTOMOBILE REPOSSESSOR COLONOSCOPY Iron deficiency anemia due to chronic blood loss documented as of this encounter Procedures Procedure Name Priority Date/Time Associated Diagnosis Comments MSK CT OUTSIDE REFERENCE Routine 12/19/2022 7:40 PM CDT documented in this encounter Results * MSK CT Outside Reference (12/19/2022 7:40 PM CDT) Narrative [facility] - 01/08/2023 2:51 PM CDT This order has been auto-finalized and does not contain a result. 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 documented as of this encounter Care Teams J2Ee Software Engineer Relationship Specialty Start Date End Date Cherelle Corcoran MD PCP - General Family Medicine 08/30/19 Mark Queen MD Consulting Physician Infectious Diseases 01/10/20 Anam Costa LCSW Entry Level Chemist 08/08/22 02/18/23 Rudolph Welch MD [address] [facility] [address] [place] [id number] Consulting Physician Infectious Diseases 12/05/22 Markie Ryan MD [address] [facility] [address] [place] [address] Consulting Physician Nephrology 12/05/22 documented as of this encounter
--- OUTSIDE RECORDS SUMMARY | 2024-07-04 04:09 | XMS_ITS | Encounter Summary ---
Author Organization [facility] Home Care Serv[facility] es Address [address] [place] [address] Phone Care Team Providers Care Vp [employer] Sales West Name Role Phone Cherelle Corcoran MD Primary Care Pro vider Mark Queen MD Unavailable [phone] Anam Costa [facility] Unavailable Unavailabl e Rudolph Welch MD Unavailable [phone] Markie Ryan MD Unavailable [phone] Encounter Details Date Type Department Care Team (Late st Contact Info) Description 12/20/2022 Home Care Visit [facility] Home Health - [address] [place] [address] Lupe Khan, ALIREZA TELEPHONE ENCOUNTER Social History Tobacco Use Types Packs/Day Years [...] you attend chur ch or buddhism services? Never 12/08/2022 Do you belong to [...] slept in a alf (including now)? 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 Gender Identity Female 02/08/2020 6:39 PM CDT Sexual Orientation Not on file documented as of this encounter Plan of Treatment Upcoming Encounters Date Type Department Care Team (Latest Contact Info) Description 07/13/2024 9:00 AM DISTRIBUTION DRIVER Hospital Encounter [facility] GI Lab [address] [place] [id number] Jaya Grier MD [address] [place] [address] [address] [place] [phone] 07/13/2024 9:00 AM DISTRIBUTION DRIVER - 07/13/2024 9:30 AM DISTRIBUTION DRIVER Surgery [facility] GI [facility] [address] [place] [address] Jaya Grier MD [address] [place] [address] [address] [place] [phone] ESOPHAGOGASTRODUODENOSCOPY Scheduled Procedures Name Priority Associated Diagnoses Date/Ti ut ESOPHAGOGASTRODUODENOSCOPY Anemia, unspecified type Gastritis without bleeding, unspecified chronicity, unspecified gastritis type 07/13/2024 9:00 AM DISTRIBUTION DRIVER COLONOSCOPY Iron deficiency anemia due to chronic blood loss documented as of this encounter Visit Diagnoses Not on filedocumented in this encounter Additional Health Concerns Infection Onset Date Last Indicated Resolved Time MRSA Comment:Toe 11/08/22, 12/12/22 11/08/2022 12/12/2022 06/10/2023 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
--- OUTSIDE RECORDS SUMMARY | 2024-07-04 04:10 | XMS_ITS | Encounter Summary ---
Author Organization [facility] Healthcare Address [address] [place] [address] Care Team Providers Care Manager Infrastructure Name Role Phone Cherelle Corcoran MD Primary Care Pro vider Mark Queen MD Unavailable [phone] Anam Costa LCSW Unavailable UnavailMelania Rae RN Unavailable [phone] Encounter Details Date Type Department Care Team (Latest Contact Info) Description 11/14/2022 5:29 PM CDT - 11/14/2022 11:59 PM CDT Hospital Encounter [facility] [address] [place] [address] Discharge Disposition: Discharge to home or self [...] neighbors? More than three times a week 11/11/2022 How often do you get togethe r with friends or relatives? More than three times a week 11/11/2022 How often do you attend [facility] or baptism services? More than 4 times per year 11/11/2022 Do you belong to any clubs o r organizations such as jain groups, unions, fraternal or athletic groups, or school groups? No 11/11/2022 How often do you attend meet ings of the clubs or organizations you belong to? Never 11/11/2022 Are you , , di vorced, , never , or living with a partner? 11/11/2022 AUDIT-C Answer Date Recorded Q1: How often do you have a drink containing alcohol? Never 10/02/2022 Q2: How many drinks containi ng alcohol do you have on a typical day when you are drinking? Patient does not drink Q3: How often do you have si x or more drinks on one occasion? Never 10/02/2022 Overall Financial Resource Strain (CARDIA) Answe r Date Recorded How hard is it for you to pa y for the very basics like food, housing, medical care, and heating? Not hard at all 11/11/2022 PHQ-2 Answer Date Recorded PHQ-2 Total Score (If total score is 3 or more points, staff should administer the PHQ-9) 0 06/09/2022 Hunger Vital Sign Answer Date Recorded Within the past 12 months, y ou worried that your food would run out before you got the money to buy more. Never true 11/12/19 Within the past 12 months, t he food you bought just didn't last and you didn't have money to get more. Never true 11/11/2022 PRAPARE - Transportation Answer Date Re corded In the past 12 months, has l ack of transportation kept you from medical appointments or from getting medications? No 10/21 In the past 12 months, has l ack of transportation kept you from meetings, work, or from getting things needed for daily living? No 11/11/2022 Housing Stability Vital Sign Answer Fuentes e Recorded In the last 12 months, was t here a time when you were not able to pay the mortgage or rent on time? No 11/11/2022 In the last 12 months, how many places have you lived? 1 11/11/2022 In the last 12 months, was t here a time when you did not have a steady place to sleep or slept in a senior living (including now)? No 11/11/2022 Comments No Sex and Gender Information Value Date Recorded Sex Assigned at Not on file Legal Sex Female 9:03 AM CANE BURNER Gender Identity Female 02/08/2020 6:39 PM CDT Sexual Orientation Not on file documented as of this encounter Medications at Time of Discharge albuterol HFA (ProAir HFA) 90 mcg/actuation inhalerIndications :Wheezing Inhale 2 puffs every 4 (four) hours as needed for wheezing or shortness of breath 8.5 g 11/13/2022 4 amLODIPine (NORVASC) 5 mg tablet Take 1 tablet (5 mg total) by mouth nightly 30 tablet 11/13/2022 3 atorvastatin (LIPITOR) 20 mg tabletIndications: Hyperlipidemia associated with type 2 diabetes mellitus (HCC) Take 1 tablet (20 mg total) by mouth daily 30 tablet 11/13/2022 3 BD Arlyn 2nd Gen Pen Needle 32 gauge x needleIndications: Type 2 diabetes mellitus with diabetic neuropathy, with long-term current use of insulin ([facility]) USE TO INJECT BASAGLAR EVERY NIGHT AT BEDTIME 06/25/2021 3 benztropine (COGENTIN) 1 mg tablet Take 1.5 tablets (1.5 mg total) by mouth nightly 45 tablet 11/13/2022 4 blood pressure monitor kit Check BP as instructed 1 kit 03/20/2021 3 carvediloL (COREG) 12.5 mg tablet Take 1 tablet (12.5 mg total) by mouth 2 (two) times a day with meals 60 tablet 11/13/2022 3 conner.stocking,t high,reg,med miscIndications:Pe ripheral edema Wear as much as possible 2 each 1 05/28/2021 4 flash glucose scanning reader (FreeStyle Madhav [address] [place]) miscIndications:Ty pe 2 diabetes mellitus with diabetic neuropathy, with long-term current use of insulin ([facility]) Use to continually monitor glucose 1 each 10/01/2021 3 flash glucose sensor (FreeStyle Madhav 2 Sensor) kitIndications:Typ e 2 diabetes mellitus with diabetic neuropathy, with long-term current use of insulin ([facility]) Use to continually monitor glucose, change every 14 days 6 kit 3 2022 3 furosemide (LASIX) 40 mg tablet Take 1 tablet (40 mg total) by mouth daily as needed (Weight Gain >4lbs above dry weight.) 15 tablet 11/13/2022 3 lancets miscIndications:Un controlled type 2 diabetes mellitus with hyperglycemia ([facility]) Check blood sugar up to 3 times a day 100 each 3 11/13/2020 3 losartan (COZAAR) 100 mg tablet Take 1 tablet (100 mg total) by mouth daily 30 tablet 11/14/2022 3 metroNIDAZOLE (FLAGYL) 500 mg tabletIndications: Bone/Joint Infection Take 1 tablet (500 mg total) by mouth 3 (three) times a day 90 tablet 1 11/13/2022 3 miscellaneous medical supply (Blood Pressure Cuff) miscIndications:Hy pertension associated with diabetes ([facility]) Use to check blood pressure daily 1 each 1 10/07/2021 3 pregabalin (LYRICA) 150 mg capsuleIndications :Other diabetic neurological complication associated with type 2 diabetes mellitus ([facility]) Take 1 capsule (150 mg total) by mouth nightly 30 capsule 11/13/2022 3 risperiDONE (RisperDAL) 2 mg tablet Take 1 tablet (2 mg total) by mouth nightly 30 tablet 11/13/2022 3 risperiDONE (RisperDAL) 2 mg tablet Take 1 tablet (2 mg total) by mouth 12/21/2021 3 Saccharomyces boulardii (FLORASTOR) 250 mg capsule Take 1 capsule (250 mg total) by mouth 2 (two) times a day while receiving antibiotic therapy 11/14/2022 3 syringe with needle, insulin (INSULIN SYRINGE-NEEDLE U-100 MISC) 3 times a day 09/12/2017 3 vancomycin IVBPIndications:Sk in/Soft Tissue Infection Infuse 209 mL (1,045 mg total) into a venous catheter every other day 3971 mL 11/15/2022 3 documented as of this encounter Discharge Disposition Disposition Code Departure Means Destination Discharge to home or self care documented in this encounter Plan of Treatment Upcoming Encounters Date Type Department Care Team (Latest Contact Info) Description 07/13/2024 9:00 AM CANE BURNER Hospital Encounter [facility] [address] [place] [address] Jaya Grier MD [address] [place] [address] 07/13/2024 9:00 AM CANE BURNER - 07/13/2024 9:30 AM CANE BURNER Surgery [facility] [address] [place] [address] Jaya Grier MD [address] [place] [address] ESOPHAGOGASTRODUODENOSCOPY Scheduled Procedures Name Priority Associated Diagnoses Date/Ti me ESOPHAGOGASTRODUODENOSCOPY Anemia, unspecified type Gastritis without bleeding, unspecified chronicity, unspecified gastritis type 07/13/2024 9:00 AM CANE BURNER COLONOSCOPY Iron deficiency anemia due to chronic blood loss documented as of this encounter Procedures Procedure Name Priority Date/Time Associated Diagnosis Comments EGFR Routine 11/14/2022 5:29 PM CDT DIFFERENTIAL AUTO Routine 11/14/2022 5:2 9 PM CDT COMPREHENSIVE METABOIC PANEL, SERUM Routine 11/14/2022 5:29 PM CDT CBC WITH AUTO DIFFERENTIAL Routine 11/14/2022 5:29 PM CDT VANCOMYCIN LEVEL TROUGH Routine 11/14/2022 5:29 PM CDT documented in this encounter Results * eGFR (11/14/2022 5:29 PM CDT) eGFR 25 mL/min/1. 73 m2 NILSA MCDONNELL Comment: Interpretive [...] interpretive data was last reviewed 2021. Blood 11/14/2022 5:29 PM CDT 11/14/2022 6:10 PM CDT us Demetri Roy MD LAB BLOOD ORDERABLES Final Result Performing Organization Address City/State/[facility] Co va Phone Number [facility] [address] [place] [address] * (ABNORMAL) Differential, auto (11/14/2022 5:29 PM CDT) Neutrophil abs 7.9(H) 1.7 - 6.5 K/cumm [facility] Imm gran abs 0.0 0.0 - 0.1 K/cumm [facility] Lymphocyte abs 2.3 0.8 - 3.3 K/cumm [facility] Monocyte abs 0.7 0.2 - 0.8 K/cumm [facility] Eosinophil abs 0.2 0.0 - 0.5 K/cumm [facility] Basophil abs 0.0 0.0 - 0.1 K/cumm [facility] Neutrophil pct 70.6 % [facility] Comment: Interpretive Data Percent cell count reference ranges are not reported, since discordance with absolute values may lead to misinterpretation of CBC data. Current Interpretive Data was last revised on 2017. Imm gran pct 0.4 % [facility] Comment: Interpretive Data Percent cell count reference ranges are not reported, since discordance with absolute values may lead to misinterpretation of CBC data. Current Interpretive Data was last revised on 2017. Lymphocyte pct 20.9 % [facility] Comment: Interpretive Data Percent cell count reference ranges are not reported, since discordance with absolute values may lead to misinterpretation of CBC data. Current Interpretive Data was last revised on 2017. Monocyte pct 6.4 % [facility] Comment: Interpretive Data Percent cell count reference ranges are not reported, since discordance with absolute values may lead to misinterpretation of CBC data. Current Interpretive Data was last revised on 2017. Eosinophil pct 1.3 % [facility] Comment: Interpretive Data Percent cell count reference ranges are not reported, since discordance with absolute values may lead to misinterpretation of CBC data. Current Interpretive Data was last revised on 2017. Basophil pct 0.4 % [facility] Comment: Interpretive Data Percent cell count reference ranges are not reported, since discordance with absolute values may lead to misinterpretation of CBC data. Current Interpretive Data was last revised on 2017. Blood 11/14/2022 5:29 PM CDT 11/14/2022 6:10 PM CDT us Demetri Roy MD LAB BLOOD ORDERABLES Final Result [facility] [id number] [place] [address] * Vancomycin level trough (11/14/2022 5:29 PM CDT) Vancomycin trough 17.4 10.0 - 20.0 mcg/mL NIL[facility] Blood 11/14/2022 5:29 PM CDT 11/14/2022 6:11 PM CDT us Demetri Roy MD LAB BLOOD ORDERABLES Final Result [facility]IL[facility] [address] [place] [address] * (ABNORMAL) CBC with auto differential (11/14/2022 5:29 PM CDT) WBC 11.2(H) 3.8 - 9.9 K/cumm [facility] Hgb 9.5(L) 11.9 - 15.5 g/dL [facility] Hct 31.5(L) 35.6 - 45.5 % [facility] Plt 331 150 - 400 K/cumm [facility] MPV 11.6 9.1 - 12.3 fL [facility] RBC 3.18(L) 3.90 - 5.20 M/cumm [facility] MCV 99.1(H) 81.3 - 96.4 fL [facility] MCH 29.9 27.1 - 33.3 pg [facility] MCHC 30.2(L) 32.3 - 35.7 g/dL [facility] RDW CV 16.3(H) 11.1 - 14.9 % [facility] RDW SD 59.7(H) 35.7 - 48.1 fL [facility] NRBC abs 0.00 0.00 - 0.01 K/cumm [facility] Blood 11/14/2022 5:29 PM CDT 11/14/2022 6:10 PM CDT us Demetri Roy MD LAB BLOOD ORDERABLES Final Result NILSA MCDONNELL [address] [place] [address] * (ABNORMAL) Comprehensive metabolic panel, serum (11/14/2022 5:29 PM CDT) Sodium 142 135 - 145 mmol/L [facility] Potassium, sr 4.7 3.6 - 5.2 mmol/L [facility] Chloride 110 97 - 110 mmol/L [facility] CO2 21(L) 22 - 32 mmol/L [facility] Anion gap 11 2 - 15 mmol/L [facility] BUN 39(H) 8 - 25 mg/dL [facility] Creatinine 2.05(H) 0.60 - 1.10 mg/dL [facility] Glucose 312(H) 70 - 199 mg/dL [facility] Comment: [...] 0.1 - 1.2 mg/dL [facility] Protein, sr 6.9 6.2 - 8.2 g/dL [facility] Albumin 3.3(L) 3.5 - 5.0 g/dL [facility] Alk phos 134(H) 40 - 130 Units/L [facility] ALT 27 7 - 45 Units/L [facility] AST 20 10 - 45 Units/L [facility] Blood 11/14/2022 5:29 PM CDT 11/14/2022 6:10 PM CDT Demetri Roy MD LAB BLOOD ORDERABLES Final Result [facility] [address] Department [place] [address] documented in this encounter Visit Diagnoses Not on filedocumented in this encounter Additional Health Concerns Infection Onset Date Last Indicated Resolved Time MRSA Comment:Toe 11/08/22, 12/12/22 11/08/2022 12/12/2022 06/10/2023 3:05 AM CANE BURNER documented as of this encounter Care Teams Manager Infrastructure Relationship Specialty Start Date End Date Cherelle Corcoran MD PCP - General Family Medicine 08/30/19 Mark Queen MD Consulting Physician Infectious Diseases 01/10/20 Anam Costa LCSW Rn Cardiovascular Icu 08/08/22 02/18/23 Jesus, Melania Joel, RN [address] [place] [address] [address] [place] [id number] [employer] 08/22/22 12/07/22 documented as of this encounter
--- OUTSIDE RECORDS SUMMARY | 2024-07-04 04:10 | XMS_ITS | Encounter Summary ---
Author Organization [facility] Healthcare Address [address] [place] [address] Care Team Providers Care Molecular Biology Professor Name Role Phone Duane Corcoran MD Primary Care Pro vider Mark Queen MD Unavailable [phone] Anam CostaW Unavailable Unavailabl Mealnia Moncada RN Unavailable [phone] Reason for Visit * Reason Comments Wound Check Wound right foot 1st digit lower back pain not her self * Auth/Cert (Routine) Specialty Diagnoses / Procedures Referred By Contac t Referred To Contact Diagnoses Cellulitis of great toe of right foot Osteomyelitis of great toe of right foot (CMS/HCC) (HCC) Procedures NA Referral ID Status Reason Start Date Expiration Date Visits Re quested Visits Authorized [id number] 1 1 Encounter Details Date Type Department Care Team (Latest Contact Info) Description 11/06/2022 10:11 AM CDT - 11/13/2022 6:41 PM CDT Hospital Encounter [place] [phone] [place] [id number] [address] Larry Dennis MD [address] [place], [place] [id number] [place] [address] [place] [address] Cristó[place] [address] [place] [address] Osteomyelitis of great toe of right foot (CMS/HCC) (HCC) (Primary Dx); Cellulitis of great toe of right foot; Wheezing; Hyperlipidemia associated with type 2 diabetes mellitus (HCC); Gastroesophageal reflux disease, unspecified whether esophagitis present; Other diabetic neurological complication associated with type 2 diabetes mellitus (HCC) Discharge Disposition: Discharge to SNF Social [...] week 11/11/2022 How often do you attend [facility] or orthodoxy services? More than 4 times per year [...] in a care home (including now)? 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 Gender Identity Female 02/08/2020 6:39 PM CDT Sexual Orientation Not on file documented as of this encounter Last Filed Vital Signs Vital Sign Reading Time Taken Comments Blood Pressure 123/51 11/13/2022 3:08 PM CDT Pulse 61 11/13/2022 3:08 PM CDT Temperature 36.7 ??C (98.1 ??F) 11/13/2022 3:08 PM CD T Respiratory Rate 16 11/13/2022 3:08 PM CDT Oxygen Saturation 99% 11/13/2022 3:08 PM CDT Inhaled Oxygen Concentration - - Weight 69.5 kg (153 lb 4.8 oz) 11/10/2022 8:10 A M CDT Height 157.5 cm (5' 2 ) 11/10/2022 8:10 AM CDT Body Mass Index 28.04 11/10/2022 8:10 AM CDT documented in this encounter Discharge Summaries * Cristóbal Gould DO - 11/13/2022 6:41 PM CDT Inpatient Discharge Summary Patient Name - Sixto Chakraborty Patient Age - 72 yrs Patient - [id number] [facility] - [id number] Document Creation Date: 11/14/2022 Admitting Provider, MD: Bev Adames MD Discharge Provider, MD: Cristóbal Gould DO Primary Care Physician at Discharge: Duane Corcoran MD [phone] Admission Date: 11/06/2022 Discharge Date/time: 11/14/2022 Admission Location: [facility] Emergency Department LOS - LOS: 7 days DETAILS OF HOSPITAL STAY Hospital Problems/Diagnoses Principal Problem: Osteomyelitis of great toe of right foot (CMS/HCC) ([facility]) Active Problems: Diabetic neuropathy (HCC) Type 2 diabetes mellitus with diabetic neuropathy, with long-term current use of insulin ([facility]/HCC) ([facility]) Hypertension associated with diabetes (HCC) Gastroesophageal reflux disease without esophagitis Hyperlipidemia associated with type 2 diabetes mellitus ([facility]) Schizoaffective disorder, bipolar type (CMS/HCC) (HCC) 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 2 diabetes mellitus (CMS/HCC) (HCC) Late onset Alzheimer's dementia without behavioral disturbance ([facility]) Anemia in stage 4 chronic kidney disease ([facility]) Abnormal urinalysis Reason for Hospitalization: Sixto Chakraborty is a 72-year-old female admitted to [facility] on November 06, 2022 the chief complaint of right foot wound. Per H&P HPI: Presents emergency department on November 06, 2022 with a wound to the right foot, redness, swelling of the right great toe. 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 She is post debridement October 30, 2022 by wound care. Endorses worsening redness and swelling since the procedure. Not currently on antibiotics. Patient has a history of dementia, documented A/O x 1-2 at baseline, history is limited to the EMR with some information provided by the patient. Labs significant for stable CKD,stable anemia. Urine with 11-20 wbc's, 2+ LE, negative nitrite. CT head no acute intracranial pathology. X-ray of the right great toe concerning for cellulitis with associated osteomyelitis. Vancomycin, Flagyl, cefepime initiated. Hospital Course: Infectious Disease and Podiatry were consulted. MRI of the foot shows osteomyelitis in the right 1st great toe. The patient refused amputation. Podiatry recommended ABIs and signed off. Infectious Disease reported that she continue on cefepime and Flagyl and vancomycin through December 23. She was setup for discharge to subacute nursing facility rehabilitation stable condition on November 13, 2022. Discharge Details Physical Exam at Discharge: Discharge Condition: fair Pulse: 61 Resp: 16 BP: 123/51 Temp: 36.7 ??C (98.1 ??F) Weight: 69.5 kg (153 lb 4.8 oz) Pertinent Exam Findings at Discharge: None Discharge Disposition: Discharge to SNF Code Status at Discharge: Prior Active Issues & Recommended Plan for Follow-up: PCP, ID Allergies: Patient has no known allergies. Discharge Medications: Your medication list START taking these medications Instructions Last Dose Given Next Dose Due amLODIPine 5 mg tablet Commonly known as: NORVASC Take 1 tablet (5 mg total) by mouth nightly metroNIDAZOLE 500 mg tablet Commonly known as: FLAGYL Take 1 tablet (500 mg total) by mouth 3 (three) times a day vancomycin IVBP Start taking on: November 15, 2022 Infuse 209 mL (1,045 mg total) into a venous catheter every other day CHANGE how you take these medications Instructions Last Dose Given Next Dose Due carvediloL 12.5 mg tablet Commonly known as: COREG What changed: medication strength how much to take Take 1 tablet (12.5 mg total) by mouth 2 (two) times a day with meals losartan 100 mg tablet Commonly known as: COZAAR Start taking on: November 14, 2022 What changed: medication strength how much to take Take 1 tablet (100 mg total) by mouth daily CONTINUE taking these medications Instructions Last Dose Given Next Dose Due albuterol HFA 90 mcg/actuation inhaler Commonly known as: ProAir HFA Inhale 2 puffs every 4 (four) hours as needed for wheezing or shortness of breath atorvastatin 20 mg tablet Commonly known as: LIPITOR Take 1 tablet (20 mg total) by mouth daily BD Arlyn 2nd Gen Pen Needle 32 gauge x 5/32 needle Generic drug: pen needle, diabetic USE TO INJECT BASAGLAR EVERY NIGHT AT BEDTIME benztropine 1 mg tablet Commonly known as: COGENTIN Take 1.5 tablets (1.5 mg total) by mouth nightly Blood Pressure Cuff misc Generic drug: miscellaneous medical supply Use to check blood pressure daily blood pressure monitor kit Check BP as instructed conner.stocking,thigh,reg,med misc Wear as much as possible FreeStyle Madhav 2 Gasquet misc Doctor's comments: May or may not need Generic drug: flash glucose scanning reader Use to continually monitor glucose FreeStyle Madhav 2 Sensor kit Doctor's comments: Type 2 diabetic, on 2 insulin Generic drug: flash glucose sensor Use to continually monitor glucose, change every 14 days furosemide 40 mg tablet Commonly known as: LASIX Take 1 tablet (40 mg total) by mouth daily as needed (Weight Gain >4lbs above dry weight.) INSULIN SYRINGE-NEEDLE U-100 MISC 3 times a day lancets misc Check blood sugar up to 3 times a day pregabalin 150 mg capsule Commonly known as: LYRICA Take 1 capsule (150 mg total) by mouth nightly risperiDONE 2 mg tablet Doctor's comments: Discontinue Haldol Commonly known as: RisperDAL Take 1 tablet (2 mg total) by mouth nightly STOP taking these medications acetaminophen 325 mg tablet Commonly known as: TYLENOL apixaban 5 mg tablet Commonly known as: ELIQUIS doxycycline 100 mg capsule Commonly known as: VIBRAMYCIN dulaglutide 1.5 mg/0.5 mL pen injector Commonly known as: TRULICITY famotidine 10 mg tablet Commonly known as: PEPCID HumaLOG 200 unit/mL (3 mL) pen for injection Generic drug: insulin lispro insulin glargine 100 unit/mL (3 mL) pen for injection Commonly known as: LANTUS, BASAGLAR, SEMGLEE lidocaine HCL-menthoL 4-1 % adhesive patch,medicated OneTouch Verio test strips strip Generic drug: blood glucose diagnostic polyethylene glycol 17 gram packet Commonly known as: MIRALAX Where to Get Your Medications These medications were sent to [facility] [address] [facility] [address] albuterol HFA 90 mcg/actuation inhaler amLODIPine 5 mg tablet atorvastatin 20 mg tablet benztropine 1 mg tablet carvediloL 12.5 mg tablet furosemide 40 mg tablet losartan 100 mg tablet metroNIDAZOLE 500 mg tablet pregabalin 150 mg capsule risperiDONE 2 mg tablet You can get these medications from any pharmacy Bring a paper prescription for each of these medications vancomycin IVBP Time Spent in Discharge Process: I have spent 40 minutes on discharge planning activities. Time spent was on Coordination of care, Follow up , Counselling with patient/family, discharge exam, and parent/patient education Test Results Pending at Discharge (If Blank, None Found): Pending Labs Order Current Status Aerobic and anaerobic culture and gram stain Wound Toe Preliminary result Operative Procedures Performed (If Blank, None Found): Outpatient Follow-Up: Future Appointments Date Time Provider Department Center 11/19/2022 4:00 PM Alison Silverio OT [facility] ON OP OT [facility] ORT NEUR 11/25/2022 3:00 PM Stefani Tyson OT [facility] ON OP OT [facility] ORT NEUR 12/05/2022 8:00 AM José Antonio Morgan MD E[facility] BW4 HEATH IM EML 12/05/2022 11:00 AM Alison Silverio OT [facility] ON OP OT [facility] ORT NEUR 12/08/2022 10:00 AM Stefani Tyson OT [facility] ON OP OT [facility] ORT NEUR 12/10/2022 1:15 PM Santo Vail MD [facility] CARD E Specialty 12/18/2022 3:00 PM Jerel Cardenas OT [facility] ON OP OT [facility] ORT NEUR 12/22/2022 8:00 AM Jerel Cardenas OT [facility] ON OP OT [facility] ORT NEUR 12/29/2022 8:00 AM Jerel Cardenas OT [facility] ON OP OT [facility] ORT NEUR 02/18/2023 12:15 PM Nikhil Jones MD MB CARD E [facility] Specialty 03/11/2023 1:45 PM Markie Ryan MD [id number] [facility] Specialty Contact Information for Follow-ups Duane Corcoran MD Specialty: Family Medicine Relationship: PCP - General [address] [place] [id number] Next Steps: Follow up Instructions: Follow up with your primary care physician in the next 7 days. Questions: Instructions for follow-up (appointment date and time): Follow up with your primary care physician in the next 7 days. To provider: DUANE CORCORAN Please schedule an appointment with the following provider(s): Duane Corcoran MD [address] [place] [id number] Follow up with your primary care physician in the next 7 days. ANCILLARY INFORMATION Other Procedures & Diagnostic Tests: US TEO Result Date: 11/07/2022 EXAMINATION: Unilateral LOWER EXTREMITY ARTERY DUPLEX WITH TEO'S DATE: 11/07/2022 3:00 PM HISTORY: chronic wound right hallux COMPARISON: 10/16/2021 TECHNIQUE: Standard technique was employed for unilateral lower extremity arterial duplex with TEO's including grayscale and color Doppler images with spectral waveform analysis. FINDINGS: SITE WAVEFORM RT FEMORAL Triphasic RT P. FEMORAL Biphasic RT S. FEMORAL Triphasic RT POPLITEAL Biphasic RT POST TIBIAL Triphasic RT PERONEAL Biphasic RT ANT TIBIAL Biphasic RT LORENE PED Biphasic SITE PRESSURE INDEX RT BRACHIAL 162 RT ANKLE PT 158 0.95 RT ANKLE DP 177 1.06 RT DIGIT 225 1.35 Right posterior tibial and dorsalis pedis waveforms are biphasic. Digital waveform is pulsatile. LT BRACHIAL 167 LT ANKLE PT 155 0.93 LT ANKLE DP 171 1.02 LT DIGIT 170 1.02 Left posterior tibial waveform is monophasic the dorsalis pedis waveform is biphasic digital waveform is pulsatile RIGHT LEG:Patent right lower extremity vasculature with multiphasic waveforms. The TEO is 1.06 and TBI is 1.35. LEFT LEG:Normal TEO at rest 1.02 and TBI 1.02 . Electronically signed by: Mir Zavaleta M.D. US Arterial Duplex Lower Extremity Right Limited Result Date: 11/07/2022 EXAMINATION: Unilateral LOWER EXTREMITY ARTERY DUPLEX WITH TEO'S DATE: 11/07/2022 3:00 PM HISTORY: chronic wound right hallux COMPARISON: 10/16/2021 TECHNIQUE: Standard technique was employed for unilateral lower extremity arterial duplex with TEO's including grayscale and color Doppler images with spectral waveform analysis. FINDINGS: SITE WAVEFORM RT FEMORAL Triphasic RT P. FEMORAL Biphasic RT S.FEMORAL Triphasic RT POPLITEAL Biphasic RT POST TIBIAL Triphasic RT PERONEAL Biphasic RT ANT TIBIALBiphasic RT LORENE PED Biphasic SITE PRESSURE INDEX RT BRACHIAL 162 RT ANKLE PT 158 0.95 RT ANKLE DP 177 1.06 RT DIGIT 225 1.35 Right posterior tibial and dorsalis pedis waveforms are biphasic. Digitalwaveform is pulsatile. LT BRACHIAL 167 LT ANKLE PT 155 0.93 LT ANKLE DP 171 1.02 LT DIGIT 170 1.02Left posterior tibial waveform is monophasic the dorsalis pedis waveform is biphasic digital waveform is pulsatile RIGHT LEG:Patent right lower extremity vasculature with multiphasic waveforms. The TEO is 1.06 and TBI is 1.35. LEFT LEG:Normal TEO at rest 1.02 and TBI 1.02 . Electronically signed by: Mir Zavlaeta M.D. CT Head WO Contrast Result Date: 11/06/2022 Examination: CT HEAD WO CONTRAST Date: 11/06/2022 4:55 PM Clinical History: Mental status change, unknown cause Technique: Noncontrast CT head with 2-D reformatted views was obtained. Comparison:CT head 10/02/2022. Findings: Mild enlarged ventricles, sulci, and cisterns is seen with subtle decreased a ttenuation of the periventricular white matter. The medeiros-white matter differentiation is preserved.No acute intracranial hemorrhage midline shift or mass effect is seen. Bilateral intraocular lens replacement is seen.. Mild left sphenoid compartment mucosal thickening is present. The mastoid and middle ear cavity are clear. The calvarium is intact. Hyperostosis frontalis interna is seen. No acute intracranial pathology. Electronically signed by: Brionna Randhawa M.D. XR Toe Great Right Minimum 2 Views Result Date: 11/06/2022 EXAMINATION: XR TOE GREAT RIGHT MINIMUM 2 VIEWS DATE: 11/06/2022 11:50 AM HISTORY: Right great toe wound. COMPARISON: None. Findings/impression: Partial amputation of the 4th digit. No acute fracture. Atherosclerotic calcifications are demonstrated in the peripheral vasculature. Erosive changes are noted in the 1st digit distal tuft with associated irregularity of the soft tissue. Findings may represent cellulitis with a ssociated osteomyelitis in the appropriate clinical setting Electronically signed by: Phil Pete II, D.O. Recent Labs: Recent Labs Lab Units 11/12/22 0552 11/11/22 0447 11/10/22 0657 WBC K/cumm 9.0 8.2 8.6 HEMOGLOBIN g/dL 8.1* 8.3* 8.4* HEMATOCRIT % 27.2* 27.7* 27.9* PLATELETS K/cumm 279 283 311 Recent Labs Lab Units 11/12/22 0552 11/11/22 0447 11/10/22 0657 WBC K/cumm 9.0 8.2 8.6 HEMOGLOBIN g/dL 8.1* 8.3* 8.4* HEMATOCRIT % 27.2* 27.7* 27.9* PLATELETS K/cumm 279 283 311 NEUTROS PCT % 59.3 57.4 62.1 LYMPHS PCT % 30.4 30.3 25.9 MONOS PCT % 6.8 8.2 7.7 EOS PCT % 2.7 3.3 3.4 Recent Labs Lab Units 11/13/22 1655 11/12/22 0742 11/12/22 0552 11/11/22 0750 11/11/22 0447 11/10/22 1301 11/10/22 0657 SODIUM mmol/L -- -- 138 -- 144 -- 143 POTASSIUM PLASMA mmol/L -- -- 4.4 -- 4.4 -- 4.3 CHLORIDE mmol/L -- -- 110 -- 114* -- 112* CO2 mmol/L -- -- 19* -- 19* -- 21* BUN SERUM mg/dL -- -- 41* -- 32* -- 29* CREATININE mg/dL -- -- 2.15* -- 2.01* -- 1.93* OLI-RIL-TUVEZEF mL/min/1.73 m2 -- -- 24 -- 26 -- 27 GLUCOSE mg/dL -- -- 208* -- 122 -- 161 POC GLUCOSE MONITOR mg/dL 187 < > -- < > -- < > -- CALCIUM mg/dL -- -- 8.1* -- 8.5 -- 8.8 < > = values in this interval not displayed. Recent Labs Lab Units 11/13/22 1655 11/13/22 1208 11/13/22 0751 11/12/22 0742 11/12/22 0552 11/11/22 0750 11/11/22 0447 11/10/22 1301 11/10/22 0657 SODIUM mmol/L -- -- -- -- 138 -- 144 -- 143 POTASSIUM PLASMA mmol/L -- -- -- -- 4.4 -- 4.4 -- 4.3 CHLORIDE mmol/L -- -- -- -- 110 -- 114* -- 112* CO2 mmol/L -- -- -- -- 19* -- 19* -- 21* ANIONGAP mmol/L -- -- -- -- 9 -- 11 -- 10 GLUCOSE mg/dL -- -- -- -- 208* -- 122 -- 161 POC GLUCOSE MONITOR mg/dL 187 162 198 < > -- < > -- < > -- BUN SERUM mg/dL -- -- -- -- 41* -- 32* -- 29* CREATININE mg/dL -- -- -- -- 2.15* -- 2.01* -- 1.93* CALCIUM mg/dL -- -- -- -- 8.1* -- 8.5 -- 8.8 < > = values in this interval not displayed. No lab exists for component: LABALBU Recent Labs Lab Units 11/12/22 0552 11/11/22 0447 11/10/22 0657 MAGNESIUM mg/dL 2.0 2.1 2.0 Lab Results Component Value Date GLUCOSE 187 11/13/2022 GLUCOSE 162 11/13/2022 GLUCOSE 198 11/13/2022 Implant: Implants No active implants to display in this view. General Precautions (If Blank, None Found): Isolation Status: No active isolations Nutritional Status and in-house recommendations: Anticoagulation Indication: INR: No results found for requested labs within last 30 days. Warfarin Administrations (last 168 hours) None Oxygen Status: No data found. Wound Care Instructions Wound 09/04/22 Anterior;Right Toe (Comment which one) black/blue with yellow discharge (Active) Wound Status Evolving 11/13/22899 Site Assessment Dry;Black 11/13/22899 Yenny-wound Assessment Dry;Intact 11/13/22899 Drainage Amount None 11/13/22899 Dressing Status Open to Air;Changed 11/13/22899 Dressing Betadine;Gauze 11/13/22 0900 Interventions Cleansed 11/12/22 0800 Other Instructions Call provider for: Temperature -Temperature [...] Found): Patient Emergency Contact: Primary Emergency Contact: IrwinAreli, Immunization Status at Discharge Immunization History Administered Date(s) Administered Influenza Nasal, Unspecified 04/17/2017 Influenza, Quadrivalent, High Dose, Preservative Free, Intrr 04/02/2020, 03/07/2021, 04/01/2022, 08/07/2022 Influenza, Trivalent, Adjuvanted, Intramuscular 04/06/2019 Influenza, Trivalent, Intramuscular 04/17/2017 Pfizer SARS-CoV-2 Monovalent Vaccination (12+ Yrs) PURPLE 09/22/2020, 10/13/2020, 06/11/2021 Pneumococcal Conjugate PCV 13 03/31/2017 Pneumococcal Polysaccharide PPV23 01/20/2019 Cristóbal Gould DO documented in this encounter Medications at Time [...] 2nd Gen Pen Needle 32 gauge x /32 needleIndications: Type 2 diabetes mellitus with diabetic neuropathy, with long-term current use of insulin ([facility]) USE TO INJECT BASAGLAR EVERY [...] flash glucose scanning reader (FreeStyle Madhav 2 Gasquet) miscIndications:Ty pe 2 diabetes mellitus with diabetic neuropathy, with long-term current use of insulin ([facility]) Use to continually monitor glucose 1 each 10/01/2021 3 flash glucose sensor (FreeStyle Madhav 2 Sensor) kitIndications:Typ e 2 diabetes mellitus with diabetic neuropathy, with long-term current use of insulin ([facility]) Use to continually monitor glucose, change every 14 days 6 kit 3 2022 3 furosemide (LASIX) 40 mg tablet Take 1 tablet (40 mg total) by mouth daily as needed (Weight Gain >4lbs above dry weight.) 15 tablet 11/13/2022 3 lancets miscIndications:Un controlled type 2 diabetes mellitus with hyperglycemia (HCC) Check blood sugar up to 3 times [...] Pressure Cuff) miscIndications:Hy pertension associated with diabetes (HCC) Use to check blood pressure daily 1 each 1 10/07/2021 3 pregabalin (LYRICA) 150 mg capsuleIndications :Other diabetic neurological complication associated with type 2 diabetes mellitus (HCC) Take 1 capsule (150 mg total) by mouth nightly 30 capsule 11/13/2022 3 risperiDONE (RisperDAL) 2 mg tablet Take 1 tablet (2 mg total) by mouth nightly 30 tablet 11/13/2022 3 risperiDONE (RisperDAL) 2 mg tablet Take 1 tablet (2 mg total) by mouth 12/21/2021 3 syringe with needle, insulin (INSULIN SYRINGE-NEEDLE U-100 [facility]) 3 times a day 09/12/2017 3 vancomycin IVBPIndications:Sk in/Soft Tissue Infection Infuse 209 mL (1,045 mg total) into a venous catheter every other day 3971 mL 11/15/2022 3 documented as of this encounter Ordered Prescriptions Prescription Sig Dispense Quantity Refills Last Filled Start Date End Date vancomycin IVBPIndications:Sk in/Soft Tissue Infection Infuse 209 mL (1,045 mg total) into a venous catheter every other day 3971 mL 11/15/2022 3 metroNIDAZOLE (FLAGYL) 500 mg tabletIndications: Bone/Joint Infection Take 1 tablet (500 mg total) by mouth 3 (three) times a day 90 tablet 1 11/13/2022 3 amLODIPine (NORVASC) 5 mg tablet Take 1 tablet (5 mg total) by mouth nightly 30 tablet 11/13/2022 3 risperiDONE (RisperDAL) 2 mg tablet Take 1 tablet (2 mg total) by mouth nightly 30 tablet 11/13/2022 3 pregabalin (LYRICA) 150 mg capsuleIndications :Other diabetic neurological complication associated with type 2 diabetes mellitus (HCC) Take 1 capsule (150 mg total) by mouth nightly 30 capsule 11/13/2022 3 losartan (COZAAR) 100 mg tablet Take 1 tablet (100 mg total) by mouth daily 30 tablet 11/14/2022 3 carvediloL (COREG) 12.5 mg tablet Take 1 tablet (12.5 mg total) by mouth 2 (two) times a day with meals 60 tablet 11/13/2022 3 benztropine (COGENTIN) 1 mg tablet Take 1.5 tablets (1.5 mg total) by mouth nightly 45 tablet 11/13/2022 4 atorvastatin (LIPITOR) 20 mg tabletIndications: Hyperlipidemia associated with type 2 diabetes mellitus (HCC) Take 1 tablet (20 mg total) by mouth daily 30 tablet 11/13/2022 3 albuterol HFA (ProAir HFA) 90 mcg/actuation inhalerIndications :Wheezing Inhale 2 puffs every 4 (four) hours as needed for wheezing or shortness of breath 8.5 g 11/13/2022 4 furosemide (LASIX) 40 mg tablet Take 1 tablet (40 mg total) by mouth daily as needed (Weight Gain >4lbs above dry weight.) 15 tablet 11/13/2022 3 documented in this encounter Discharge Disposition Disposition Code Departure Means Destination Comment s Discharge to [facility] documented in this encounter Progress Notes * Krishna Morgan MD - 11/13/2022 4:05 PM CDT Images from the original note were not included. Infectious Disease Sixto Banksgers Admit Date: 11/06/2022 LOS: 7 Days Consulting Physician:Bev Adames MD Reason for consult:OM toe Interval Course No new events 11/11 Status post PICC line placement Wound culture right toe wound MRSA, mixed New Symptoms Patient is comfortable , asleep ATBX Vanc/Flagyl Data Vitals: 11/12/22 1940 11/12/22 2334 11/13/22 0724 11/13/22 1508 BP: 152/66 148/75 116/66 123/51 BP Location: Right arm Right arm Patient Position: Lying Pulse: 66 65 59 61 Resp: 16 16 17 16 Temp: 36.8 ??C (98.3 ??F) 36.9 ??C (98.4 ??F) 36.8 ??C (98.2 ??F) 36.7 ??C (98.1 ??F) TempSrc: Oral Oral Oral Oral SpO2: 99% 95% 97% 99% Weight: Height: Temp (24hrs), Av.8 ??C (98.3 ??F), Min:36.7 ??C (98.1 ??F), Max:36.9 ??C (98.4 ??F) Recent Labs Lab Units 11/12/22 0552 11/11/2244611/10/22 0657 WBC K/cumm 9.0 8.2 8.6 HEMOGLOBIN g/dL 8.1* 8.3* 8.4* HEMATOCRIT % 27.2* 27.7* 27.9* PLATELETS K/cumm 279 283 311 Recent Labs Lab Units 11/12/2255111/11/2244611/10/22 0657 BUN SERUM mg/dL 41* 32* 29* CREATININE mg/dL 2.15* 2.01* 1.93* Scheduled Meds:amLODIPine, 5 mg, oral, Nightly atorvastatin, 20 mg, oral, Daily benztropine, 1.5 mg, oral, Nightly carvediloL, 12.5 mg, oral, BID with meals (bkfst, dinner) enoxaparin, 30 mg, subcutaneous, Daily-2100 famotidine, 10 mg, oral, Nightly insulin glargine, 0.25 Units/kg, subcutaneous, Nightly insulin lispro, 0-10 Units, subcutaneous, TID with meals insulin lispro, 0-5 Units, subcutaneous, Nightly insulin lispro, 0.083 Units/kg, subcutaneous, TID with meals losartan, 100 mg, oral, Daily metroNIDAZOLE, 500 mg, oral, TID pregabalin, 150 mg, oral, Nightly risperiDONE, 2 mg, oral, Nightly vancomycin, 15 mg/kg, intravenous, Q48H Continuous Infusions: PRN Meds:. acetaminophen albuterol aluminum-magnesium hydroxide-simethicone dextrose OR dextrose glucagon ondansetron oxyCODONE polyethylene glycol QUEtiapine ramelteon Review of Systems: Patient is asleep Objective: Vitals: 24hr Min/Max: Temp Min: 36.4 ??C (97.6 ??F) Max: 37.4 ??C (99.3 ??F) Pulse Min: 57 Max: 66 BP Min: 112/50 Max: 167/95 Resp Min: 17 Max: 19 SpO2 Min: 93 % Max: 100 % Physical Exam: General appearance: Asleep no distress HEENT: (-)icterus, Oropharnyx is normal, NCAT Neck: No palpable LN Lungs: breath sounds normal and symmetric; minimal respiratory effort, no r/w/c Heart: regular rhythm, normal S1 and S2, no m/r/g Abdomen: soft without mass, non-tender, +bowel sounds, no HSM Skin: (-)new rashes, no ulcerations MSK: no gross deformities, FROM Extremities : Positive Edema, pulses present bilaterally, positive erythema induration of the rightgreat toe crusted wound on the tip of the toe Neuro: No focal deficits Psych: Appropriate mood and affect Lab/Radiology/Diagnostic Review: 11/08 MRI right foot without IMPRESSION: 1. Distal right great toe wound with osteomyelitis of the distal phalanx and small erosions of the distal tuft. 11/06 x-ray right foot IMPRESSION: Findings/impression: Partial amputation of the 4th digit. No acute fracture. Atherosclerotic calcifications are demonstrated in the peripheral vasculature. Erosive changes are noted in the 1st digit distal tuft with associated irregularity of the soft tissue. Findings may represent cellulitis with associated osteomyelitis in the appropriate clinical setting 10/11 arterial Doppler lower extremity INTERPRETATION Right ankle-brachial index of 1.1 which is normal. Left ankle-brachial index of 1.1 which is normal. 11/08 wound cultures right great toe MRSA, mixed organism 11/06 blood culture no growth 11/06 urine culture clinically insignificant Assessment: Osteomyelitis right great toe with possible cellulitis CKD Type 2 diabetes with neuropathy Pyuria Hypertension Hyperlipidemia Dementia Plan: Continue on vanc and Flagyl to 12/23 CBC,CMP Vanc levels weekly fax to [phone] Follow-up blood cultures, no growth to date Follow final wound culture Podiatry has been consulted, no intervention planned Arterial Doppler lower extremity negative MRI right foot with osteo Okay to DC from ID perspective Supportive care * King Cristóbal Segundo, - 11/13/2022 12:37 PM CDT Images from the original note were not included. HOSPITALIST PROGRESS NOTE PCP: Duane Corcoran [phone] Admit Date: 11/06/2022 10:11 AM LOS: 7 CHIEF COMPLAINT / ADMITTING HPI Presents emergency department on November 06, 2022 with a wound to the right foot, redness, swelling of the right great toe. 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 She is post debridement October 30, 2022 by wound care. Endorses worsening redness and swelling since the procedure. Not currently on antibiotics. Patient has a history of dementia, documented A/O x 1-2 at baseline, history is limited to the EMR with some informationprovided by the patient. Labs significant for stable CKD, stable anemia. Urine with 11-20 wbc's, 2+LE, negative nitrite. CT head no acute intracranial pathology. X-ray of the right great toe concerning for cellulitis with associated osteomyelitis. Vancomycin, Flagyl, cefepime initiated. INTERVAL HISTORY The patient was seen and examined at bedside. She is awake, alert, oriented x2, and is otherwise ofsound mind. She reports she is doing fairly well overall. She reports she slept well, is not havingany pain, appetite is fair. She reports that her memory is not that good. She is no other new or worsening symptoms. She is no other concerns at this time. I updated her on her condition(s), workup(s) , treatment(s), and discharge plan. All of her questions were answered to her satisfaction. No family at bedside. I spoke with nursing staff at bedside. We discussed the patient's care in detail, and all of their concerns were addressed to their satisfaction. REVIEW OF SYSTEMS See above. All 7 systems reviewed and are otherwise negative. DATA Vitals: 11/12/22 1532 11/12/22 1940 11/12/22 2334 11/13/22 0724 BP: 132/63 152/66 148/75 116/66 BP Location: Right arm Right arm Patient Position: Sitting Lying Pulse: 65 66 65 59 Resp: 17 16 16 17 Temp: 36.5 ??C (97.7 ??F) 36.8 ??C (98.3 ??F) 36.9 ??C (98.4 ??F) 36.8 ??C (98.2 ??F) TempSrc: Oral Oral Oral Oral SpO2: 100% 99% 95% 97% Weight: Height: No intake or output data in the 24 hours ending 11/13/22 1237 CURRENT LAB RESULTS Laboratory results have been reviewed by me: Recent Results (from the past 12 hour(s)) POCT glucose Collection Time: 11/13/22 2:08 AM Result Value Ref Range Glucose, POC 250 (H) 70 - 199 mg/dL POCT glucose Collection Time: 11/13/22 7:51 AM Result Value Ref Range Glucose, POC 198 70 - 199 mg/dL Vancomycin level trough Draw trough 30 minutes prior to 4th dose. Collection Time: 11/13/22 10:29 AM Result Value Ref Range Vancomycin trough 18.2 10.0 - 20.0 mcg/mL POCT glucose Collection Time: 11/13/22 12:08 PM Result Value Ref Range Glucose, POC 162 70 - 199 mg/dL LAB TREND CBC: Lab Results Component Value Date WBC 9.0 11/12/2022 WBC 8.2 11/11/2022 HGB 8.1 (L) 11/12/2022 HGB 8.3 (L) 11/11/2022 HCT 27.2 (L) 11/12/2022 HCT 27.7 (L) 11/11/2022 BMP: Lab Results Component Value Date SODIUM 138 11/12/2022 SODIUM 144 11/11/2022 POTASSIUM 4.4 11/12/2022 POTASSIUM 4.4 11/11/2022 CHLORIDE 110 11/12/2022 CREATININE 2.15 (H) 11/12/2022 CREATININE 2.01 (H) 11/11/2022 CALCIUM 8.1 (L) 11/12/2022 CALCIUM 8.5 11/11/2022 No results found for: BNP No results found for: ALKPHOS Lab Results Component Value Date MAGNESIUM 2.0 11/12/2022 MAGNESIUM 2.1 11/11/2022 No results found for: AST No results found for: ALT No results found for: PHOS RADIOLOGY Imaging results have been reviewed by me: MRI Foot Right WO Contrast ED Interpretation PROCEDURE INFORMATION: Exam: MR Right Lower Extremity Other Than Joint Without Contrast; Foot Exam date and time: 11/08/2022 3:20 PM Age: 72 years old Clinical indication: Other: Osteomyelitis; Additional info: Osteomyelitis, foot, follow up TECHNIQUE: Imaging protocol: Magnetic resonance imaging of the right lower extremity without contrast. Exam focused on the foot. COMPARISON: 1. CR XR FOOT RIGHT 3 OR MORE VIEWS 09/04/2022 12:16 PM 2. MRI Foot Right W/WO Contrast 12/26/2019 9:05 PM 3. CR XR TOE GREAT RIGHT MINIMUM 2 VIEWS 11/06/2022 11:54 AM FINDINGS: Bones/joints: Status post amputation of the 4th toe and head of 4th metatarsal. There are nonspecific erosive changes involving the tuft of the 1st distal phalanx, appear new in comparison with the previous MRI, slightly progressed in comparison with the August radiographs. On T1 weighted images, there is mild sclerosis within the remnant tip of the 1st distal phalanx. There is subtle predominantly subcortical increased T2 marrow signal seen within the 1st distal phalanx, suboptimally assessed due to the large [id number]-[id number] imaging provided. Questionable subtle increased T2 signal versus inhomogeneous fat saturation involving 5th distal phalanx. No evidence of acute fracture or osteonecrosis. No focal marrow replacing lesion seen. 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 LIGAMENTS: Lisfranc ligament: Unremarkable. No evidence of tear. TENDONS: Flexor tendons of foot: Tendinosis and interstitial tearing of the flexor hallucis longus tendon. Tibialis posterior tendon: Unremarkable as visualized. Peroneal tendons: Unremarkable as visualized. Extensor tendons of foot: Unremarkable. No evidence of tear. Tibialis anterior tendon: Unremarkable as visualized. Achilles tendon: Tendinosis distal Achilles tendon. Tarsal canal (Sinus tarsi): Unremarkable. Tarsal tunnel: Unremarkable. Soft tissues: Skin thickening and soft tissue edema within the great toe and foot. Edema extends into the ankle and distal lower leg incompletely visualized on this study. No focal soft tissue mass. No discrete, drainable fluid collection. Atrophy of and edema within the intrinsic foot muscles presumed secondary to peripheral neuropathy. Plantar fascia: Mild chronic plantar fasciitis. IMPRESSION: 1. Skin thickening and soft tissue edema involving great toe and foot extending into ankle and lower leg incompletely visualized on this study, consistent with skin and soft tissue infection in the appropriate clinical context. No discrete, drainable abscess seen. 2. Erosive changes involving the tuft of 1st distal phalanx as discussed. There is some subtle predominantly subcortical increased T2 marrow signal within the 1st distal phalanx with some subtle sclerosis noted in the remnant tip on T1 weighted images. These marrow signal changes are nonspecific, could represent mild nonspecific osteitis. Early osteomyelitis is difficult to exclude, evaluation suboptimal given large rpczi-wf-tnfs imaging that included the entire foot. Small ypwpy-ck-ufjy MRI focused on the forefoot would provide more detailed assessment of the forefoot marrow signal alterations. 3. Questionable nonspecific increased T2 signal versus inhomogeneous fat saturation involving 5th distal phalanx. Question any symptoms involving 5th toe raise suspicion for osteitis or osteomyelitis. Again small epddg-vh-skka MRI focused on the forefoot could be performed for further assessment. THIS DOCUMENT HAS BEEN ELECTRONICALLY SIGNED BY KERVIN LEONE MD THIS DOCUMENT WAS READ BY A AD RADIOLOGIST, ANY QUESTIONS PLEASE CALL [phone] Final Result 1. Distal right great toe wound with osteomyelitis of the distal phalanx and small erosions of the distal tuft. Dictated by: Radha Bell M.D. The radiology attending physician has personally reviewed this study, and had reviewed and/or edited this written report and agrees with it. Electronically signed by: Weston Kasper MD, PHD US TEO Final Result RIGHT LEG:Patent right lower extremity vasculature with multiphasic waveforms. The TEO is 1.06 and TBI is 1.35. LEFT LEG:Normal TEO at rest 1.02 and TBI 1.02 . Electronically signed by: Mir Zavaleta M.D. US Arterial Duplex Lower Extremity Right Limited Final Result RIGHT LEG:Patent right lower extremity vasculature with multiphasic waveforms. The TEO is 1.06 and TBI is 1.35. LEFT LEG:Normal TEO at rest 1.02 and TBI 1.02 . Electronically signed by: Mir Zavaleta M.D. CT Head WO Contrast Final Result No acute intracranial pathology. Electronically signed by: Brionna Randhawa M.D. XR Toe Great Right Minimum 2 Views Final Result Findings/impression: Partial amputation of the 4th digit. No acute fracture. Atherosclerotic calcifications are demonstrated in the peripheral vasculature. Erosive changes are noted in the 1st digit distal tuft with associated irregularity of the soft tissue. Findings may represent cellulitis with associated osteomyelitis in the appropriate clinical setting Electronically signed by: Phil Pete II, D.O. PROCEDURES MEDICATIONS FOR CURRENT ENCOUNTER Scheduled Meds: amLODIPine, 5 mg, oral, Nightly atorvastatin, 20 mg, oral, Daily benztropine, 1.5 mg, oral, Nightly carvediloL, 12.5 mg, oral, BID with meals (bkfst, dinner) enoxaparin, 30 mg, subcutaneous, Daily-2100 famotidine, 10 mg, oral, Nightly insulin glargine, 0.25 Units/kg, subcutaneous, Nightly insulin lispro, 0-10 Units, subcutaneous, TID with meals insulin lispro, 0-5 Units, subcutaneous, Nightly insulin lispro, 0.083 Units/kg, subcutaneous, TID with meals losartan, 100 mg, oral, Daily metroNIDAZOLE, 500 mg, oral, TID pregabalin, 150 mg, oral, Nightly risperiDONE, 2 mg, oral, Nightly vancomycin, 15 mg/kg, intravenous, Q48H Continuous Infusions: PRN Meds:. acetaminophen, 650 mg albuterol, 2.5 mg aluminum-magnesium hydroxide-simethicone, 30 mL dextrose, 15 g OR dextrose, 250 mL glucagon, 1 mg ondansetron, 4 mg oxyCODONE, 5 mg polyethylene glycol, 17 g QUEtiapine, 25 mg ramelteon, 8 mg Diet: Dietary Orders (From admission, onward) Start Ordered 11/07/22 2100 Bedtime snack At bedtime Comments: If bedtime BG is less than 100mg/dl, give patient a 15 gram carbohydrate snack. 11/07/22 0127 11/07/22 1049 Adult Diet Restricted; Consistent Carb 2000 chanelle Diet effective now Question Answer Comment (CH) Diet type Restricted Diabetic: Consistent Carb 2000 chanelle 11/07/22 1049 EXAM Vitals: 11/13/22 0724 BP: 116/66 Pulse: 59 Resp: 17 Temp: 36.8 ??C (98.2 ??F) SpO2: 97% General appearance: appears stated age, cooperative, and no distress Head: Normocephalic, without obvious abnormality, atraumatic Lungs: clear to auscultation bilaterally Heart: S1, S2 normal Abdomen: soft, non-tender; bowel sounds normal; no masses, no organomegaly Extremities: No edema see toe pictures below ASSESSMENT AND PLAN All Diagnosis Present on Admission Unless Otherwise Stated: Right great toe osteomyelitis wound. Patient refuses amputation seen by Podiatry recommend vascularABI they have signed off. Appreciate Infectious Disease input concerning long-term antibiotics. Weight-bearing as tolerated per Podiatry. Wound care. MRI shows osteomyelitis, continue antibiotics as per Infectious Disease currently on vancomycin cefepime and Flagyl will need long-term antibiotics through 12/23. Skilled facility for antibiotics. PICC line placement Diabetes mellitus continue Lantus insulin sliding scale insulin monitor fingerstick blood sugars, needs tight blood sugar control. Abnormal urinalysis. Culture insignificant growth Essential hypertension continue losartan monitor blood pressure closely. Blood pressure has been running a little high may have to adjust antihypertensives for better blood pressure control Hyperlipidemia continue statin Bipolar disorder schizoaffective continue home medications Chronic kidney disease stage 4 monitor renal function avoid nephrotoxic agents and hypotension 11/12: Labs reviewed, CKD 4 at baseline. Defer rechecking daily. Alzheimer's dementia stable. DVT prophylaxis Lovenox 11/12: History of DVT on Eliquis but PCP note says it has resolved. DC at this time. Discharge Disposition: medically stable for discharge to SNF. No acute changes in management by me today. Non-billable encounter. Voice recognition software ([employer]) was used to complete this document. Despite proofreading, gandy dancer variances and typographical errors may occur. Cristóbal Gould DO, /NMM Hospitalist in the [facility] 11/13/2022 12:37 PM * Natacha Vargas RPh - 11/13/2022 11:29 AM CDT Pharmacokinetic Consult - Vancomycin Dosing (Day # 9) Sixto Chakraborty is a 72 y.o. female on vancomycin 1000 Q48h for osteomyelitis. Also receiving metronidazole. Relevant clinical data and objective history reviewed: Creatinine Date Value Ref Range Status 11/12/2022 2.15 (H) 0.60 - 1.10 mg/dL Final 11/11/2022 2.01 (H) 0.60 - 1.10 mg/dL Final 11/10/2022 1.93 (H) 0.60 - 1.10 mg/dL Final BUN Date Value Ref Range Status 11/12/2022 41 (H) 8 - 25 mg/dL Final 11/11/2022 32 (H) 8 - 25 mg/dL Final 11/10/2022 29 (H) 8 - 25 mg/dL Final Estimated Creatinine Clearance: 18.7 mL/min (A) (by C-G 65 yr and older- minimum SCr 0.8 based on SCr of 2.15 mg/dL (H)). No intake/output data recorded. Lab Results Component Value Date/Time WBC 9.0 11/12/2022 05:52 AM HGB 8.1 (L) 11/12/2022 05:52 AM HCT 27.2 (L) 11/12/2022 05:52 AM MCV 99.3 (H) 11/12/2022 05:52 AM LABPLAT 279 11/12/2022 05:52 AM Temp Readings from Last 3 Encounters: 11/13/22 36.8 ??C (98.2 ??F) (Oral) 10/27/22 36.3 ??C (97.3 ??F) (Temporal) 10/13/22 36.3 ??C (97.3 ??F) (Temporal) Patient Weight 11/10/22 69.5 kg (153 lb 4.8 oz) Cultures: Toe: MRSA Vancomycin trough level: 18.2 mcg/ml Assessment/Plan Goal vancomycin trough: 10-20 mcg/ml Continue the current vancomycin regimen. Next trough 11/17 0830. Will continue to monitor and adjust as needed. Natacha Vargas RPh * Linette Hope COTA - 11/13/2022 10:53 AM CDT Occupational Therapy NOTE / SESSION TYPE: DAILY PROGRESS / TREATMENT Patient's Name: Sixto Chakraborty Age / Sex: 72 y.o. / female Room: [facility]/[id number] : 1950 Date of service: 11/13/22 TIME IN: 1015 TIME OUT: 1053 Patient Active Problem List Diagnosis Schizoaffective disorder, bipolar type (CMS/HCC) (HCC) Diabetic neuropathy (HCC) Type 2 diabetes mellitus with diabetic neuropathy, with long-term current use of insulin (CMS/HCC) (HCC) Hypertension associated with diabetes (HCC) Amputation of toe of right foot ([facility]/HCC) (HCC) Iron deficiency anemia Gastroesophageal reflux disease without esophagitis Hyperlipidemia associated with type 2 diabetes mellitus (HCC) Dementia (HCC) Schizoaffective disorder, bipolar type (CMS/HCC) (HCC) 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 2 diabetes mellitus (CMS/HCC) ([facility]) Encounter for Medicare annual wellness exam Late onset Alzheimer's dementia without behavioral disturbance (HCC) Volume overload Anemia Toe necrosis (CMS/HCC) (HCC) Physical deconditioning Left leg DVT ([facility]/HCC) ([facility]) Pulmonary nodule Retention of urine, unspecified Unspecified osteoarthritis, unspecified site Unsteadiness on feet Weakness Parkinsonism (HCC) Wheezing Anemia in stage 4 chronic kidney disease (HCC) Osteomyelitis of great toe of right foot (CMS/HCC) (HCC) Abnormal urinalysis Past Medical History: Diagnosis Date Arthritis Dementia (HCC) Depression Diabetic neuropathy (HCC) Hyperlipidemia Hypertension Renal disorder Schizophrenia (HCC) Type 2 diabetes mellitus (HCC) Past Surgical History: Procedure Laterality Date SECTION Right right foot TOE AMPUTATION Right 01/06/2020 4th toe amp/ foot debridement/ Dr. Anat Pelayo Precautions (including weight-bearing): Fall risk, Bed / chair alarm, and Contact isolation: MRSA Subjective: If I had a male friend I would feel better... don't you think ? Therapy Pain: Pre-therapy pain level: 0 /10 Pain location: No pain - Location N/A Pain Intervention(s): No pain - Intervention N/A Post-therapy pain level: 0 /10 Pain scale reference: 0-10 SCALE Objective: Appearance: Presentation upon OT arrival: Patient Sidelying left Presentation upon OT departure: Patient Sidelying left Bed / Chair alarm in place and activated upon OT departure: Yes Call light within arms reach of patient at end of session: Yes Completed patient handoff and notified BUTTER MELTER / RN, name: Lulú, of patient's location and functionalstatus upon completion of session Cognitive / Perceptual: WFL Mobility / Transfers: Bed Mobility: MOD A supine > sitting EOB with extended time to process verbal instructions. MIN A sitting EOB > supine MOD A rolling L <> R for repositioning Living Skills / Other Activities: SHOWER / BATHE SELF TYPE OF BATHING: SPONGEBATHING LOCATION OF SHOWER / BATHE SELF: Sitting on EOB TASKS COMPLETED: FACE, CHEST, ABDOMEN, RIGHT ARM, and LEFT ARM COMPONENTS THAT REQUIRED ASSISTANCE (IF APPLICABLE): MAX A CHEST, MAX A ABDOMEN, MAX A R UE, MAX A L UE for thoroughness OVERALL ASSIST LEVEL: SUBSTANTIAL / MAXIMAL ASSISTANCE: MORE THAN HALF (50% - 99%) ADAPTIVE EQUIPMENT (IF APPLICABLE): no assistive device ADDITIONAL DOCUMENTATION: Patient required verbal repetitive cues for carryover and continuation. Unable to complete all components due to patient becoming drowsy and falling asleep while sitting at EOB. UE DRESSING LOCATION OF UE DRESSING: Sitting on EOB TASKS COMPLETED: Hospital gow OVERALL ASSIST LEVEL: PARTIAL / MODERATE ASSISTANCE: LESS THAN HALF (1% - 49%) ADDITIONAL DOCUMENTATION: MOD A due to IV line Caregiver Present: No Education & Training Provided: Role of OT, OT plan of care, ADL training, Bed mobility training, Balance training, and Safety education Assessment: Activity tolerance / response to OT session: RECEPTIVE TO EDUCATION / TRAINING, FAIR TOLERANCE, andFATIGUED Progress towards goals: Please refer to care plan from this date for progress towards individual goals Plan: Therapy Plan: Rehab Potential (Prognosis): fair OT Recommendations This Date: OT RECOMMENDATIONS: OT Recommendation: Group Home Facility (WITH SKILLED OT) Flow sheet updated and OT Consultation in Regards to Change in Discharge Recommendations: YES /NO: No Additional recommendation comments: Recommend SNF due to: Risk of injury at home, Unable to safely care for self in the home, Skilled therapy needed to address care for self in the home OT Recommendation/Plan Comments: PATIENT WILL NEED 24 HOUR SUPERVISION FOLLOWING D/C TO COMMUNITY. Frequency of therapy:OT Frequency during current admission: 2-3x/wk If this is the last note, consider this the discharge summary MICHEAL Navarro 11/13/22 Cosigned by Cristy Marte OT at 11/13/2022 12:18 PM CDT * Tim Castelan MSW - 11/12/2022 3:53 PM CDT 11/12/22 1553 Communications Important Message from Medicare notice given to patient? No Attempted, unable to review. * Krishna Morgan MD - 11/12/2022 3:15 PM CDT Images from the original note were not included. Infectious Disease Sixto Chakraborty Admit Date: 11/06/2022 LOS: 6 Days Consulting Physician:Bev Adames MD Reason for consult:OM toe Interval Course No new events Status post PICC line placement Wound culture right toe wound MRSA, mixed New Symptoms Patient is comfortable sleeping but arousable, denies any new complaints ATBX Vanc/Flagyl Data Vitals: 11/11/22 0736 11/11/22 1509 11/11/22 2325 11/12/22 0731 BP: 142/69 130/54 137/73 151/69 BP Location: Left arm Right arm Right arm Patient Position: Lying Sitting Lying Pulse: 64 64 74 71 Resp: 15 17 18 15 Temp: 36.5 ??C (97.7 ??F) 36.7 ??C (98.1 ??F) 36.9 ??C (98.5 ??F) 36.7 ??C (98.1 ??F) TempSrc: Axillary Oral Oral Oral SpO2: 92% 98% 96% 97% Weight: Height: Temp (24hrs), Av.8 ??C (98.3 ??F), Min:36.7 ??C (98.1 ??F), Max:36.9 ??C (98.5 ??F) Recent Labs Lab Units 11/12/22 0552 11/11/22 0447 11/10/22 0657 WBC K/cumm 9.0 8.2 8.6 HEMOGLOBIN g/dL 8.1* 8.3* 8.4* HEMATOCRIT % 27.2* 27.7* 27.9* PLATELETS K/cumm 279 283 311 Recent Labs Lab Units 11/12/22 0552 11/11/22 0447 11/10/22 0657 BUN SERUM mg/dL 41* 32* 29* CREATININE mg/dL 2.15* 2.01* 1.93* Scheduled Meds:amLODIPine, 5 mg, oral, Nightly atorvastatin, 20 mg, oral, Daily benztropine, 1.5 mg, oral, Nightly carvediloL, 12.5 mg, oral, BID with meals (bkfst, dinner) enoxaparin, 30 mg, subcutaneous, Daily-2100 famotidine, 10 mg, oral, Nightly insulin glargine, 0.25 Units/kg, subcutaneous, Nightly insulin lispro, 0-10 Units, subcutaneous, TID with meals insulin lispro, 0-5 Units, subcutaneous, Nightly insulin lispro, 0.083 Units/kg, subcutaneous, TID with meals losartan, 100 mg, oral, Daily metroNIDAZOLE, 500 mg, intravenous, Q8H SOL pregabalin, 150 mg, oral, Nightly risperiDONE, 2 mg, oral, Nightly [START ON 11/13/2022] vancomycin, 15 mg/kg, intravenous, Q48H Continuous Infusions: PRN Meds:. acetaminophen albuterol aluminum-magnesium hydroxide-simethicone dextrose OR dextrose glucagon ondansetron oxyCODONE polyethylene glycol QUEtiapine ramelteon Review of Systems: Gen: denies fevers, denies chills, denies sweats, denies unintentional weight loss HEENT: Denies sore throat, denies thrush Neck: Denies palpable lymph nodes, denies neck stiffness Cv: denies chest pain, denies palpitations Resp: Denies SOB, Denies orthopnea Gi: Denies abdominal pain, Denies diarrhea, denies n/v Extrem: Denies gross deformities, denies joint pain, denies myalgias, positive right great toe wound Skin: Denies rashes, denies lesions Neuro: Denies weakness, denies paresthesias, denies memory loss Psych: denies depression, denies anxiety Objective: Vitals: 24hr Min/Max: Temp Min: 36.4 ??C (97.6 ??F) Max: 37.4 ??C (99.3 ??F) Pulse Min: 57 Max: 66 BP Min: 112/50 Max: 167/95 Resp Min: 17 Max: 19 SpO2 Min: 93 % Max: 100 % Physical Exam: General appearance: alert, cooperative, no distress HEENT: (-)icterus, Oropharnyx is normal, NCAT Neck: No palpable LN Lungs: breath sounds normal and symmetric; minimal respiratory effort, no r/w/c Heart: regular rhythm, normal S1 and S2, no m/r/g Abdomen: soft without mass, non-tender, +bowel sounds, no HSM Skin: (-)new rashes, no ulcerations MSK: no gross deformities, FROM Extremities : Positive Edema, pulses present bilaterally, positive erythema induration of the rightgreat toe crusted wound on the tip of the toe Neuro: No focal deficits Psych: Appropriate mood and affect Lab/Radiology/Diagnostic Review: 11/08 MRI right foot without IMPRESSION: 1. Distal right great toe wound with osteomyelitis of the distal phalanx and small erosions of the distal tuft. 11/06 x-ray right foot IMPRESSION: Findings/impression: Partial amputation of the 4th digit. No acute fracture. Atherosclerotic calcifications are demonstrated in the peripheral vasculature. Erosive changes are noted in the 1st digit distal tuft with associated irregularity of the soft tissue. Findings may represent cellulitis with associated osteomyelitis in the appropriate clinical setting 10/11 arterial Doppler lower extremity INTERPRETATION Right ankle-brachial index of 1.1 which is normal. Left ankle-brachial index of 1.1 which is normal. 11/08 wound cultures right great toe MRSA, mixed organism 11/06 blood culture no growth 11/06 urine culture clinically insignificant Assessment: Osteomyelitis right great toe with possible cellulitis CKD Type 2 diabetes with neuropathy Pyuria Hypertension Hyperlipidemia Dementia Plan: Continue on vanc and Flagyl to 12/23 CBC,CMP Vanc levels weekly fax to [phone] Follow-up blood cultures, no growth to date Follow final wound culture Podiatry has been consulted, no intervention planned Arterial Doppler lower extremity negative MRI right foot with osteo Supportive care Okay to DC from ID perspective * Cristóbal Gould, DO - 11/12/2022 2:44 PM CDT Images from the original note were not included. HOSPITALIST PROGRESS NOTE PCP: Duane Corcoran [phone] Admit Date: 11/06/2022 10:11 AM LOS: 6 CHIEF COMPLAINT / ADMITTING HPI Presents emergency department on November 06, 2022 with a wound to the right foot, redness, swelling of the right great toe. 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 She is post debridement October 30, 2022 by wound care. Endorses worsening redness and swelling since the procedure. Not currently on antibiotics. Patient has a historyof dementia, documented A/O x 1-2 at baseline, history is limited to the EMR with some information provided by the patient. Labs significant for stable CKD, stable anemia. Urine with 11-20 wbc's, 2+ LE, negative nitrite. CT head no acute intracranial pathology. X-ray of the right great toe concerning for cellulitis with associated osteomyelitis. Vancomycin, Flagyl, cefepime initiated. INTERVAL HISTORY 11/07/2022: Patient in bed pleasant, seen by Podiatry appreciate consult. X-ray reviewed, vascular surgery were consulted as per Podiatry recommendation. No plans for surgery today. Podiatry signing off. Patient states she does not want any amputation. 11/08/2022: Seen in bed eating breakfast, seen by vascular surgery appreciate consult. Seen by Infectious Disease, MRI toe shows osteomyelitis distal phalanx Continue antibiotics as per Infectious Disease. Blood cultures no growth to date. 11/10/2022: Patient in bed doing about the same. Blood pressure was a little elevated yesterday. Improved some today. Case management still working on placement appreciate vascular surgery follow-up PT/OT. Remains on IV antibiotics will require long-term 11/11/2022: In bed no new concerns or issue vascular placement PICC for long- term antibiotics through 12/23 as per Infectious Disease. Discussed with adoption social worker will need placement. 11/12/2022: The patient was seen and examined at bedside. She is sleeping but easily arousable to alert. She reports she is doing fairly well overall. Further history is unable to obtain from the patient secondary to dementia. No family at bedside. I spoke with nursing staff at bedside. We discussed the patient's care in detail, and all of their concerns were addressed to their satisfaction. Several discussions with case management today regarding discharge planning, antibiotic course. REVIEW OF SYSTEMS See above. All 7 systems reviewed and are otherwise negative. DATA Vitals: 11/11/22 0736 11/11/22 1509 11/11/22 2325 11/12/22 0731 BP: 142/69 130/54 137/73 151/69 BP Location: Left arm Right arm Right arm Patient Position: Lying Sitting Lying Pulse: 64 64 74 71 Resp: 15 17 18 15 Temp: 36.5 ??C (97.7 ??F) 36.7 ??C (98.1 ??F) 36.9 ??C (98.5 ??F) 36.7 ??C (98.1 ??F) TempSrc: Axillary Oral Oral Oral SpO2: 92% 98% 96% 97% Weight: Height: No intake or output data in the 24 hours ending 11/12/22 1444 CURRENT LAB RESULTS Laboratory results have been reviewed by me: Recent Results (from the past 12 hour(s)) Magnesium Collection Time: 11/12/22 5:52 AM Result Value Ref Range Magnesium 2.0 1.4 - 2.5 mg/dL Basic metabolic panel Collection Time: 11/12/22 5:52 AM Result Value Ref Range Sodium 138 135 - 145 mmol/L Potassium, pl 4.4 3.3 - 4.9 mmol/L Chloride 110 97 - 110 mmol/L CO2 19 (L) 22 - 32 mmol/L Anion gap 9 2 - 15 mmol/L BUN 41 (H) 8 - 25 mg/dL Creatinine 2.15 (H) 0.60 - 1.10 mg/dL Glucose 208 (H) 70 - 199 mg/dL Calcium 8.1 (L) 8.5 - 10.3 mg/dL CBC with auto differential Collection Time: 11/12/22 5:52 AM Result Value Ref Range WBC 9.0 3.8 - 9.9 K/cumm Hgb 8.1 (L) 11.9 - 15.5 g/dL Hct 27.2 (L) 35.6 - 45.5 % Plt 279 150 - 400 K/cumm MPV 11.3 9.1 - 12.3 fL RBC 2.74 (L) 3.90 - 5.20 M/cumm MCV 99.3 (H) 81.3 - 96.4 fL MCH 29.6 27.1 - 33.3 pg MCHC 29.8 (L) 32.3 - 35.7 g/dL RDW CV 15.9 (H) 11.1 - 14.9 % RDW SD 57.7 (H) 35.7 - 48.1 fL NRBC abs 0.00 0.00 - 0.01 K/cumm Differential, auto Collection Time: 11/12/22 5:52 AM Result Value Ref Range Neutrophil abs 5.4 1.7 - 6.5 K/cumm Imm gran abs 0.0 0.0 - 0.1 K/cumm Lymphocyte abs 2.7 0.8 - 3.3 K/cumm Monocyte abs 0.6 0.2 - 0.8 K/cumm Eosinophil abs 0.2 0.0 - 0.5 K/cumm Basophil abs 0.0 0.0 - 0.1 K/cumm Neutrophil pct 59.3 % Imm gran pct 0.4 % Lymphocyte pct 30.4 % Monocyte pct 6.8 % Eosinophil pct 2.7 % Basophil pct 0.4 % eGFR Collection Time: 11/12/22 5:52 AM Result Value Ref Range eGFR 24 mL/min/1.73 m2 POCT glucose Collection Time: 11/12/22 7:42 AM Result Value Ref Range Glucose, POC 189 70 - 199 mg/dL POCT glucose Collection Time: 11/12/22 12:14 PM Result Value Ref Range Glucose, POC 128 70 - 199 mg/dL LAB TREND CBC: Lab Results Component Value Date WBC 9.0 11/12/2022 WBC 8.2 11/11/2022 WBC 8.6 11/10/2022 HGB 8.1 (L) 11/12/2022 HGB 8.3 (L) 11/11/2022 HGB 8.4 (L) 11/10/2022 HCT 27.2 (L) 11/12/2022 HCT 27.7 (L) 11/11/2022 HCT 27.9 (L) 11/10/2022 BMP: Lab Results Component Value Date SODIUM 138 11/12/2022 SODIUM 144 11/11/2022 SODIUM 143 11/10/2022 POTASSIUM 4.4 11/12/2022 POTASSIUM 4.4 11/11/2022 POTASSIUM 4.3 11/10/2022 CHLORIDE 110 11/12/2022 CREATININE 2.15 (H) 11/12/2022 CREATININE 2.01 (H) 11/11/2022 CREATININE 1.93 (H) 11/10/2022 CALCIUM 8.1 (L) 11/12/2022 CALCIUM 8.5 11/11/2022 CALCIUM 8.8 11/10/2022 No results found for: BNP No results found for: ALKPHOS Lab Results Component Value Date MAGNESIUM 2.0 11/12/2022 MAGNESIUM 2.1 11/11/2022 MAGNESIUM 2.0 11/10/2022 No results found for: AST No results found for: ALT No results found for: PHOS RADIOLOGY Imaging results have been reviewed by me: MRI Foot Right WO Contrast ED Interpretation PROCEDURE INFORMATION: Exam: MR Right Lower Extremity Other Than Joint Without Contrast; Foot Exam date and time: 11/08/2022 3:20 PM Age: 72 years old Clinical indication: Other: Osteomyelitis; Additional info: Osteomyelitis, foot, follow up TECHNIQUE: Imaging protocol: Magnetic resonance imaging of the right lower extremity without contrast. Exam focused on the foot. COMPARISON: 1. CR XR FOOT RIGHT 3 OR MORE VIEWS 09/04/2022 12:16 PM 2. MRI Foot Right W/WO Contrast 12/26/2019 9:05 PM 3. CR XR TOE GREAT RIGHT MINIMUM 2 VIEWS 11/06/2022 11:54 AM FINDINGS: Bones/joints: Status post amputation of the 4th toe and head of 4th metatarsal. There are nonspecific erosive changes involving the tuft of the 1st distal phalanx, appear new in comparison with the previous MRI, slightly progressed in comparison with the March radiographs. On T1 weighted images, there is mild sclerosis within the remnant tip of the 1st distal phalanx. There is subtle predominantly subcortical increased T2 marrow signal seen within the 1st distal phalanx, suboptimally assessed due to the large kplrp-qq-sqmc imaging provided. Questionable subtle increased T2 signal versus inhomogeneous fat saturation involving 5th distal phalanx. No evidence of acute fracture or osteonecrosis. No focal marrow replacing lesion seen. 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 LIGAMENTS: Lisfranc ligament: Unremarkable. No evidence of tear. TENDONS: Flexor tendons of foot: Tendinosis and interstitial tearing of the flexor hallucis longus tendon. Tibialis posterior tendon: Unremarkable as visualized. Peroneal tendons: Unremarkable as visualized. Extensor tendons of foot: Unremarkable. No evidence of tear. Tibialis anterior tendon: Unremarkable as visualized. Achilles tendon: Tendinosis distal Achilles tendon. Tarsal canal (Sinus tarsi): Unremarkable. Tarsal tunnel: Unremarkable. Soft tissues: Skin thickening and soft tissue edema within the great toe and foot. Edema extends into the ankle and distal lower leg incompletely visualized on this study. No focal soft tissue mass. No discrete, drainable fluid collection. Atrophy of and edema within the intrinsic foot muscles presumed secondary to peripheral neuropathy. Plantar fascia: Mild chronic plantar fasciitis. IMPRESSION: 1. Skin thickening and soft tissue edema involving great toe and foot extending into ankle and lower leg incompletely visualized on this study, consistent with skin and soft tissue infection in the appropriate clinical context. No discrete, drainable abscess seen. 2. Erosive changes involving the tuft of 1st distal phalanx as discussed. There is some subtle predominantly subcortical increased T2 marrow signal within the 1st distal phalanx with some subtle sclerosis noted in the remnant tip on T1 weighted images. These marrow signal changes are nonspecific, could represent mild nonspecific osteitis. Early osteomyelitis is difficult to exclude, evaluation suboptimal given large smcfd-uy-bigu imaging that included the entire foot. Small hdfdj-oy-cqed MRI focused on the forefoot would provide more detailed assessment of the forefoot marrow signal alterations. 3. Questionable nonspecific increased T2 signal versus inhomogeneous fat saturation involving 5th distal phalanx. Question any symptoms involving 5th toe raise suspicion for osteitis or osteomyelitis. Again small iircp-jp-alck MRI focused on the forefoot could be performed for further assessment. THIS DOCUMENT HAS BEEN ELECTRONICALLY SIGNED BY KERVIN LEONE MD THIS DOCUMENT WAS READ BY A AD RADIOLOGIST, ANY QUESTIONS PLEASE CALL [phone] Final Result 1. Distal right great toe wound with osteomyelitis of the distal phalanx and small erosions of the distal tuft. Dictated by: Radha Bell M.D. The radiology attending physician has personally reviewed this study, and had reviewed and/or edited this written report and agrees with it. Electronically signed by: Weston Kasper MD, PHD US TEO Final Result RIGHT LEG:Patent right lower extremity vasculature with multiphasic waveforms. The TEO is 1.06 and TBI is 1.35. LEFT LEG:Normal TEO at rest 1.02 and TBI 1.02 . Electronically signed by: Mir Zavaleta M.D. US Arterial Duplex Lower Extremity Right Limited Final Result RIGHT LEG:Patent right lower extremity vasculature with multiphasic waveforms. The TEO is 1.06 and TBI is 1.35. LEFT LEG:Normal TEO at rest 1.02 and TBI 1.02 . Electronically signed by: Mir Zavaleta M.D. CT Head WO Contrast Final Result No acute intracranial pathology. Electronically signed by: Brionna Randhawa M.D. XR Toe Great Right Minimum 2 Views Final Result Findings/impression: Partial amputation of the 4th digit. No acute fracture. Atherosclerotic calcifications are demonstrated in the peripheral vasculature. Erosive changes are noted in the 1st digit distal tuft with associated irregularity of the soft tissue. Findings may represent cellulitis with associated osteomyelitis in the appropriate clinical setting Electronically signed by: Phil Pete II, D.O. PROCEDURES MEDICATIONS FOR CURRENT ENCOUNTER Scheduled Meds: amLODIPine, 5 mg, oral, Nightly atorvastatin, 20 mg, oral, Daily benztropine, 1.5 mg, oral, Nightly carvediloL, 12.5 mg, oral, BID with meals (bkfst, dinner) enoxaparin, 30 mg, subcutaneous, Daily-2100 famotidine, 10 mg, oral, Nightly insulin glargine, 0.25 Units/kg, subcutaneous, Nightly insulin lispro, 0-10 Units, subcutaneous, TID with meals insulin lispro, 0-5 Units, subcutaneous, Nightly insulin lispro, 0.083 Units/kg, subcutaneous, TID with meals losartan, 100 mg, oral, Daily metroNIDAZOLE, 500 mg, intravenous, Q8H SOL pregabalin, 150 mg, oral, Nightly risperiDONE, 2 mg, oral, Nightly [START ON 11/13/2022] vancomycin, 15 mg/kg, intravenous, Q48H Continuous Infusions: PRN Meds:. acetaminophen, 650 mg albuterol HFA, 2 puff aluminum-magnesium hydroxide-simethicone, 30 mL dextrose, 15 g OR dextrose, 250 mL glucagon, 1 mg ondansetron, 4 mg oxyCODONE, 5 mg polyethylene glycol, 17 g Diet: Dietary Orders (From admission, onward) Start Ordered 11/07/22 2100 Bedtime snack At bedtime Comments: If bedtime BG is less than 100mg/dl, give patient a 15 gram carbohydrate snack. 11/07/22 0127 11/07/22 1049 Adult Diet Restricted; Consistent Carb 2000 chanelle Diet effective now Question Answer Comment (CH) Diet type Restricted Diabetic: Consistent Carb 2000 chanelle 11/07/22 1049 EXAM Vitals: 11/12/22 0731 BP: 151/69 Pulse: 71 Resp: 15 Temp: 36.7 ??C (98.1 ??F) SpO2: 97% General appearance: appears stated age, cooperative, and no distress Head: Normocephalic, without obvious abnormality, atraumatic Lungs: clear to auscultation bilaterally Heart: S1, S2 normal Abdomen: soft, non-tender; bowel sounds normal; no masses, no organomegaly Extremities: No edema see toe pictures below ASSESSMENT AND PLAN All Diagnosis Present on Admission Unless Otherwise Stated: Right great toe osteomyelitis wound. Patient refuses amputation seen by Podiatry recommend vascularABI they have signed off. Appreciate Infectious Disease input concerning long-term antibiotics. Weight-bearing as tolerated per Podiatry. Wound care. MRI shows osteomyelitis, continue antibiotics as per Infectious Disease currently on vancomycin cefepime and Flagyl will need long-term antibiotics through 12/23. Skilled facility for antibiotics. PICC line placement Diabetes mellitus continue Lantus insulin sliding scale insulin monitor fingerstick blood sugars, needs tight blood sugar control. Abnormal urinalysis. Culture insignificant growth Essential hypertension continue losartan monitor blood pressure closely. Blood pressure has been running a little high may have to adjust antihypertensives for better blood pressure control Hyperlipidemia continue statin Bipolar disorder schizoaffective continue home medications Chronic kidney disease stage 4 monitor renal function avoid nephrotoxic agents and hypotension 11/12: Labs reviewed, CKD 4 at baseline. Defer rechecking daily. Alzheimer's dementia stable. DVT prophylaxis Lovenox 11/12: History of DVT on Eliquis but PCP note says it has resolved. DC at this time. Discharge Disposition: medically stable for discharge to SNF. MDM: Low Voice recognition software ([employer]) was used to complete this document. Despite proofreading, gandy dancer variances and typographical errors may occur. Cristóbal Gould DO, FM/NMM Hospitalist in the [facility] 11/12/2022 2:49 PM * Sarahy Liao, PUPIL PERSONNEL SERVICES DIRECTOR - 11/12/2022 11:18 AM CDT Physical Therapy PT PROGRESS NOTE PATIENT'S NAME:Sixto Chakraborty :1950 AGE:72 y.o. ROOM:[place] [address] Past Medical History: Diagnosis Date Arthritis Dementia [...] deficiency anemia Gastroesophageal reflux disease without esophagitis Hyperlipidemia associated with type 2 diabetes mellitus [...] of right foot (CMS/HCC) (HCC) Abnormal urinalysis TIME IN: 1122 TIME OUT: 1149 PM: 3:42 TIME OUT: 350 SUBJECTIVE Patient unable to participate in any functional therapy activity this date. Patient found sleeping in non-functioning recliner (electric and does not work - tried multiple outlets) patient feet dangling toward floor. Patient is asleep with pillow across her face. Patient does rouse to calling of name and light touch. Patient speech is not relevant to situation and patient frequently drifting backto sleep within short time therapist is in room. Unsafe to participate / no meaningful participation at this time. PM return, patient had returned to bed. Patient is not following commands for supine HEP. Sarahy Liao PTA 11/12/22 4:14 PM Cosigned by Nelly Hutton, PT at 11/13/2022 9:53 AM CDT * Linette Hope COTA - 11/12/2022 9:48 AM CDT Occupational Therapy NOTE / SESSION TYPE: DAILY PROGRESS / TREATMENT Patient's Name: Sixto Chakraborty Age / Sex: 72 y.o. / female Room: [place] [address] : 1950 Date of service: 11/12/22 TIME IN: 914 TIME OUT: 942 Patient Active Problem List Diagnosis Schizoaffective disorder, bipolar type ([facility]) ([facility]) Diabetic neuropathy ([facility]) Type 2 diabetes mellitus with diabetic neuropathy, with long-term current use of insulin ([facility]) ([facility]) Hypertension associated with diabetes ([facility]) Amputation of toe of right foot ([facility]) ([facility]) Iron deficiency anemia Gastroesophageal reflux disease without esophagitis Hyperlipidemia associated with type 2 diabetes mellitus ([facility]) Dementia ([facility]) Schizoaffective disorder, bipolar type ([facility]) ([facility]) 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 2 diabetes mellitus ([facility]) ([facility]) Encounter for Medicare annual wellness exam Late onset Alzheimer's dementia without behavioral disturbance ([facility]) Volume overload Anemia Toe necrosis ([facility]) (HCC) Physical deconditioning Left leg DVT ([facility]) ([facility]) Pulmonary nodule Retention of urine, unspecified Unspecified osteoarthritis, unspecified site Unsteadiness on feet Weakness Parkinsonism (HCC) Wheezing Anemia in stage 4 chronic kidney disease ([facility]) Osteomyelitis of great toe of right foot ([facility]) ([facility]) Abnormal urinalysis Past Medical History: Diagnosis Date Arthritis Dementia (HCC) Depression Diabetic neuropathy (HCC) Hyperlipidemia Hypertension Renal disorder Schizophrenia (HCC) Type 2 diabetes mellitus (HCC) Past Surgical History: Procedure Laterality Date SECTION Right right foot TOE AMPUTATION Right 01/06/2020 4th toe amp/ foot debridement/ Dr. Anat Pelayo Precautions (including weight-bearing): Fall risk, Bed / chair alarm, and Contact isolation: MRSA Subjective: What is wrong with me ? Therapy Pain: Pre-therapy pain level: 0 /10 [...] session: Yes Completed patient handoff and notified BUTTER MELTER / RN, name: Peyton, of patient's location and functional status upon completion of session Cognitive / Perceptual: Drowsy, required repetitive vc's, frequent breaks. Mobility / Transfers: Bed Mobility: MOD A supine > sitting EOB Transfer(s): MOD A sit to stand EOB with w/w MIN A stand pivot to bedside commode > bedside recliner with w/w Living Skills / Other Activities: Patient was falling asleep on the bedside commode requiring tactile/verbal cues to arouse . RN notified. TOILETING LOCATION: SITTING ON BEDSIDE COMMODE TASKS COMPLETED: HYGIENE MANAGEMENT OVERALL ASSIST LEVEL: PARTIAL / MODERATE ASSISTANCE: LESS THAN HALF (1% - 49%) ADDITIONAL DOCUMENTATION: MOD A to complete hygiene. TOILET TRANSFER LOCATION: BEDSIDE COMMODE OVERALL ASSIST LEVEL: PARTIAL / MODERATE ASSISTANCE: LESS THAN HALF (1% - 49%) DEVICE: WHEELED WALKER ADDITIONAL DOCUMENTATION: MOD A sit to stand bedside commode > bedside recliner Caregiver Present: No Education & Training Provided: Role of OT, OT plan of care, ADL training, Bed mobility training, Functional transfer training, Balance training, and Safety education Assessment: Activity tolerance / response to OT session: FAIR TOLERANCE, LETHARGIC, and FATIGUED Progress towards goals: Please refer to care plan from this date for progress towards individual goals Plan: Therapy Plan: Rehab Potential (Prognosis): fair OT Recommendations This Date: OT RECOMMENDATIONS: OT Recommendation: Group Home Facility (WITH SKILLED OT) Flow sheet updated and OT Consultation in Regards to Change in Discharge Recommendations: YES /NO: No Additional recommendation comments: Recommend SNF due to: Risk of injury at home, Unable to safely care for self in the home, Skilled therapy needed to address care for self in the home OT Recommendation/Plan Comments: PATIENT WILL NEED 24 HOUR SUPERVISION FOLLOWING D/C TO COMMUNITY. Frequency of therapy:OT Frequency during current admission: 2-3x/wk If this is the last note, consider this the discharge summary MICHEAL Navarro 11/12/22 Cosigned by Kaycee Garsia, OT at 11/12/2022 4:52 PM CDT * Natacha Vargas [facility] - 11/12/2022 9:46 AM CDT Pharmacokinetic Consult - Vancomycin Dosing Sixto Chakraborty is a 72 y.o. female on vancomycin intermittent dosing for osteomyelitis. Also receiving metronidazole. ID is following. Relevant clinical data and objective history reviewed: Creatinine Date Value Ref Range Status 11/12/2022 2.15 (H) 0.60 - 1.10 mg/dL Final 11/11/2022 2.01 (H) 0.60 - 1.10 mg/dL Final 11/10/2022 1.93 (H) 0.60 - 1.10 mg/dL Final BUN Date Value Ref Range Status 11/12/2022 41 (H) 8 - 25 mg/dL Final 11/11/2022 32 (H) 8 - 25 mg/dL Final 11/10/2022 29 (H) 8 - 25 mg/dL Final Estimated Creatinine Clearance: 18.7 mL/min (A) (by C-G 65 yr and older- minimum SCr 0.8 based on SCr of 2.15 mg/dL (H)). No intake/output data recorded. Lab Results Component Value Date/Time WBC 9.0 11/12/2022 05:52 AM HGB 8.1 (L) 11/12/2022 05:52 AM HCT 27.2 (L) 11/12/2022 05:52 AM MCV 99.3 (H) 11/12/2022 05:52 AM LABPLAT 279 11/12/2022 05:52 AM Temp Readings from Last 3 Encounters: 11/12/22 36.7 ??C (98.1 ??F) (Oral) 10/27/22 36.3 ??C (97.3 ??F) (Temporal) 10/13/22 36.3 ??C (97.3 ??F) (Temporal) Patient Weight 11/10/22 69.5 kg (153 lb 4.8 oz) Cultures: Toe: MRSA Assessment/Plan Goal vancomycin trough: 10-20 mcg/ml Start vancomycin scheduled regimen 1000 mg Q48h as pt will need to be on long- term (until 12/23). Trough prior to dose tomorrow 11/13 0830. Natacha Vargas RPh * Larry Dennis MD - 11/11/2022 11:12 PM CDT Images from the original note were not included. HOSPITALIST PROGRESS NOTE PCP: Duane Corcoran [phone] Admit Date: 11/06/2022 10:11 AM LOS: 5 CHIEF COMPLAINT / ADMITTING HPI Presents emergency department on November 06, 2022 with a wound to the right foot, redness, swelling of the right great toe. 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 She is post debridement October 30, 2022 by wound care. Endorses worsening redness and swelling since the procedure. Not currently on antibiotics. Patient has a historyof dementia, documented A/O x 1-2 at baseline, history is limited to the EMR with some information provided by the patient. Labs significant for stable CKD, stable anemia. Urine with 11-20 wbc's, 2+ LE, negative nitrite. CT head no acute intracranial pathology. X-ray of the right great toe concerning for cellulitis with associated osteomyelitis. Vancomycin, Flagyl, cefepime initiated. INTERVAL HISTORY 11/07/2022: Patient in bed pleasant, seen by Podiatry appreciate consult. X-ray reviewed, vascular surgery were consulted as per Podiatry recommendation. No plans for surgery today. Podiatry signing off. Patient states she does not want any amputation. 11/08/2022: Seen in bed eating breakfast, seen by vascular surgery appreciate consult. Seen by Infectious Disease, MRI toe shows osteomyelitis distal phalanx Continue antibiotics as per Infectious Disease. Blood cultures no growth to date. 11/10/2022: Patient in bed doing about the same. Blood pressure was a little elevated yesterday. Improved some today. Case management still working on placement appreciate vascular surgery follow-up PT/OT. Remains on IV antibiotics will require long-term 11/11/2022: In bed no new concerns or issue vascular placement PICC for long- term antibiotics through 12/23 as per Infectious Disease. Discussed with adoption social worker will need placement. REVIEW OF SYSTEMS No chest pain or shortness of breath no nausea vomiting DATA Vitals: 11/10/22 2239 11/10/22 2350 11/11/22 0736 11/11/22 1509 BP: 164/70 135/55 142/69 130/54 BP Location: Left arm Left arm Right arm Patient Position: Lying Lying Sitting Pulse: 72 97 64 64 Resp: 16 18 15 17 Temp: 36.6 ??C (97.8 ??F) 36.9 ??C (98.4 ??F) 36.5 ??C (97.7 ??F) 36.7 ??C (98.1 ??F) TempSrc: Axillary Axillary Oral SpO2: 98% 98% 92% 98% Weight: Height: No intake or output data in the 24 hours ending 11/11/22 2312 CURRENT LAB RESULTS Laboratory results have been reviewed by me: Recent Results (from the past 12 hour(s)) POCT glucose Collection Time: 11/11/22 2:01 PM Result Value Ref Range Glucose, POC 178 70 - 199 mg/dL POCT glucose Collection Time: 11/11/22 5:49 PM Result Value Ref Range Glucose, POC 238 (H) 70 - 199 mg/dL POCT glucose Collection Time: 11/11/22 7:56 PM Result Value Ref Range Glucose, POC 223 (H) 70 - 199 mg/dL LAB TREND CBC: Lab Results Component Value Date WBC 8.2 11/11/2022 WBC 8.6 11/10/2022 WBC 8.5 11/09/2022 HGB 8.3 (L) 11/11/2022 HGB 8.4 (L) 11/10/2022 HGB 8.7 (L) 11/09/2022 HCT 27.7 (L) 11/11/2022 HCT 27.9 (L) 11/10/2022 HCT 28.5 (L) 11/09/2022 BMP: Lab Results Component Value Date SODIUM 144 11/11/2022 SODIUM 143 11/10/2022 SODIUM 144 11/09/2022 POTASSIUM 4.4 11/11/2022 POTASSIUM 4.3 11/10/2022 POTASSIUM 4.3 11/09/2022 CHLORIDE 114 (H) 11/11/2022 CREATININE 2.01 (H) 11/11/2022 CREATININE 1.93 (H) 11/10/2022 CREATININE 1.85 (H) 11/09/2022 CALCIUM 8.5 11/11/2022 CALCIUM 8.8 11/10/2022 CALCIUM 8.6 11/09/2022 No results found for: BNP No results found for: ALKPHOS Lab Results Component Value Date MAGNESIUM 2.1 11/11/2022 MAGNESIUM 2.0 11/10/2022 MAGNESIUM 1.9 11/09/2022 No results found for: AST No results found for: ALT No results found for: PHOS RADIOLOGY Imaging results have been reviewed by me: MRI Foot Right WO Contrast ED Interpretation PROCEDURE INFORMATION: Exam: MR Right Lower Extremity Other Than Joint Without Contrast; Foot Exam date and time: 11/08/2022 3:20 PM Age: 72 years old Clinical indication: Other: Osteomyelitis; Additional info: Osteomyelitis, foot, follow up TECHNIQUE: Imaging protocol: Magnetic resonance imaging of the right lower extremity without contrast. Exam focused on the foot. COMPARISON: 1. CR XR FOOT RIGHT 3 OR MORE VIEWS 09/04/2022 12:16 PM 2. MRI Foot Right W/WO Contrast 12/26/2019 9:05 PM 3. CR XR TOE GREAT RIGHT MINIMUM 2 VIEWS 11/06/2022 11:54 AM FINDINGS: Bones/joints: Status post amputation of the 4th toe and head of 4th metatarsal. There are nonspecific erosive changes involving the tuft of the 1st distal phalanx, appear new in comparison with the previous MRI, slightly progressed in comparison with the March radiographs. On T1 weighted images, there is mild sclerosis within the remnant tip of the 1st distal phalanx. There is subtle predominantly subcortical increased T2 marrow signal seen within the 1st distal phalanx, suboptimally assessed due to the large hcklv-az-xglx imaging provided. Questionable subtle increased T2 signal versus inhomogeneous fat saturation involving 5th distal phalanx. No evidence of acute fracture or osteonecrosis. No focal marrow replacing lesion seen. 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 LIGAMENTS: Lisfranc ligament: Unremarkable. No evidence of tear. TENDONS: Flexor tendons of foot: Tendinosis and interstitial tearing of the flexor hallucis longus tendon. Tibialis posterior tendon: Unremarkable as visualized. Peroneal tendons: Unremarkable as visualized. Extensor tendons of foot: Unremarkable. No evidence of tear. Tibialis anterior tendon: Unremarkable as visualized. Achilles tendon: Tendinosis distal Achilles tendon. Tarsal canal (Sinus tarsi): Unremarkable. Tarsal tunnel: Unremarkable. Soft tissues: Skin thickening and soft tissue edema within the great toe and foot. Edema extends into the ankle and distal lower leg incompletely visualized on this study. No focal soft tissue mass. No discrete, drainable fluid collection. Atrophy of and edema within the intrinsic foot muscles presumed secondary to peripheral neuropathy. Plantar fascia: Mild chronic plantar fasciitis. IMPRESSION: 1. Skin thickening and soft tissue edema involving great toe and foot extending into ankle and lower leg incompletely visualized on this study, consistent with skin and soft tissue infection in the appropriate clinical context. No discrete, drainable abscess seen. 2. Erosive changes involving the tuft of 1st distal phalanx as discussed. There is some subtle predominantly subcortical increased T2 marrow signal within the 1st distal phalanx with some subtle sclerosis noted in the remnant tip on T1 weighted images. These marrow signal changes are nonspecific, could represent mild nonspecific osteitis. Early osteomyelitis is difficult to exclude, evaluation suboptimal given large okxbo-tv-aasu imaging that included the entire foot. Small yxldg-yi-wsua MRI focused on the forefoot would provide more detailed assessment of the forefoot marrow signal alterations. 3. Questionable nonspecific increased T2 signal versus inhomogeneous fat saturation involving 5th distal phalanx. Question any symptoms involving 5th toe raise suspicion for osteitis or osteomyelitis. Again small pjotg-ev-mfkg MRI focused on the forefoot could be performed for further assessment. THIS DOCUMENT HAS BEEN ELECTRONICALLY SIGNED BY KERVIN LEONE MD THIS DOCUMENT WAS READ BY A AD RADIOLOGIST, ANY QUESTIONS PLEASE CALL [phone] Final Result 1. Distal right great toe wound with osteomyelitis of the distal phalanx and small erosions of the distal tuft. Dictated by: Radha Bell M.D. The radiology attending physician has personally reviewed this study, and had reviewed and/or edited this written report and agrees with it. Electronically signed by: Weston Kasper MD, PHD US TEO Final Result RIGHT LEG:Patent right lower extremity vasculature with multiphasic waveforms. The TEO is 1.06 and TBI is 1.35. LEFT LEG:Normal TEO at rest 1.02 and TBI 1.02 . Electronically signed by: Mir Zavaleta M.D. US Arterial Duplex Lower Extremity Right Limited Final Result RIGHT LEG:Patent right lower extremity vasculature with multiphasic waveforms. The TEO is 1.06 and TBI is 1.35. LEFT LEG:Normal ETO at rest 1.02 and TBI 1.02 . Electronically signed by: Mir Zavaleta M.D. CT Head WO Contrast Final Result No acute intracranial pathology. Electronically signed by: Brionna Randhawa M.D. XR Toe Great Right Minimum 2 Views Final Result Findings/impression: Partial amputation of the 4th digit. No acute fracture. Atherosclerotic calcifications are demonstrated in the peripheral vasculature. Erosive changes are noted in the 1st digit distal tuft with associated irregularity of the soft tissue. Findings may represent cellulitis with associated osteomyelitis in the appropriate clinical setting Electronically signed by: Phil Pete II, D.O. PROCEDURES MEDICATIONS FOR CURRENT ENCOUNTER Scheduled Meds: amLODIPine, 5 mg, oral, Nightly atorvastatin, 20 mg, oral, Daily benztropine, 1.5 mg, oral, Nightly carvediloL, 12.5 mg, oral, BID with meals (bkfst, dinner) enoxaparin, 30 mg, subcutaneous, Daily-2100 famotidine, 10 mg, oral, Nightly insulin glargine, 0.25 Units/kg, subcutaneous, Nightly insulin lispro, 0-10 Units, subcutaneous, TID with meals insulin lispro, 0-5 Units, subcutaneous, Nightly insulin lispro, 0.083 Units/kg, subcutaneous, TID with meals losartan, 100 mg, oral, Daily metroNIDAZOLE, 500 mg, intravenous, Q8H SOL pregabalin, 150 mg, oral, Nightly risperiDONE, 2 mg, oral, Nightly Continuous Infusions: PRN Meds:. acetaminophen, 650 mg albuterol HFA, 2 puff aluminum-magnesium hydroxide-simethicone, 30 mL dextrose, 15 g OR dextrose, 250 mL glucagon, 1 mg ondansetron, 4 mg oxyCODONE, 5 mg polyethylene glycol, 17 g Diet: Dietary Orders (From admission, onward) Start Ordered 11/07/22 2100 Bedtime snack At bedtime Comments: If bedtime BG is less than 100mg/dl, give patient a 15 gram carbohydrate snack. 11/07/22 0127 11/07/22 1049 Adult Diet Restricted; Consistent Carb 2000 chanelle Diet effective now Question Answer Comment (CH) Diet type Restricted Diabetic: Consistent Carb 2000 chanelle 11/07/22 1049 EXAM Vitals: 11/11/22 1509 BP: 130/54 Pulse: 64 Resp: 17 Temp: 36.7 ??C (98.1 ??F) SpO2: 98% General appearance: appears stated age, cooperative, and no distress Head: Normocephalic, without obvious abnormality, atraumatic Lungs: clear to auscultation bilaterally Heart: S1, S2 normal Abdomen: soft, non-tender; bowel sounds normal; no masses, no organomegaly Extremities: No edema see toe pictures below ASSESSMENT AND PLAN All Diagnosis Present on Admission Unless Otherwise Stated: Right great toe osteomyelitis wound. Patient refuses amputation seen by Podiatry recommend vascularABI they have signed off. Appreciate Infectious Disease input concerning long-term antibiotics. Weight-bearing as tolerated per Podiatry. Wound care. MRI shows osteomyelitis, continue antibiotics as per Infectious Disease currently on vancomycin cefepime and Flagyl will need long-term antibiotics through 12/23. Skilled facility for antibiotics. PICC line placement Diabetes mellitus continue Lantus insulin sliding scale insulin monitor fingerstick blood sugars, needs tight blood sugar control. Abnormal urinalysis. Culture insignificant growth Essential hypertension continue losartan monitor blood pressure closely. Blood pressure has been running a little high may have to adjust antihypertensives for better blood pressure control Hyperlipidemia continue statin Bipolar disorder schizoaffective continue home medications Chronic kidney disease stage 4 monitor renal function avoid nephrotoxic agents and hypotension Alzheimer's dementia stable. DVT prophylaxis Lovenox Medical Decision Making Complexity: Moderate Consulting physicians: Treatment Team: Consulting Physician: Rene Leroy DPM; Consulting Physician: Portillo Marin DPM; Consulting Physician: Krishna Morgan MD Disposition: Will need placement long-term IV antibiotics Code status: Full Code Voice recognition software Topguest Direct was used dictate and transcribe this document. Engraver Signature variances may occur. Despite proofreading, typographical errors may occur. Larry Dennis MD. HOSPITALIST 11/11/2022 11:12 PM * Nadege Zambrano, OT - 11/11/2022 1:36 PM CDT Occupational Therapy NOTE / SESSION TYPE: Initial Evaluation Patient Name: Sixto Chakraborty Date of : 1950 Age / Sex: 72 y.o. / female Room: [place] [address] Admit Date: 11/06/2022 Date of Service: 11/11/22 Time In: 136 Time Out: 208 Primary Diagnosis: Osteomyelitis of great toe of right foot (CMS/HCC) ([facility]) HPI: Sixto Chakraborty is a 72 y.o. female who presents with wound to R foot, redness, swelling of R great toe. Has history of necrosis to distal aspect of R great toe, actively being treated by Wound Care and Podiatry. S/p debridement on 10/30/22. Endorses worsening redness and swelling since the procedure. Not currently on antibiotics. X-ray of the right great toe concerning for cellulitis with associated osteomyelitis. Podiatry recommend wound care vs amputation of digit with pt refusing amputation with weight bearing status WBAT. Infectious disease consult for antibiotic management and osteomyelitis, recommending MRI R foot and elevated R LE. Vascular surgery recommend check TEO and arterial duplex, wound care per podiatry. MRI with osteomyelitis of distal phalanx. s/p PICC line placement Notable History: schizoaffective disorder/bipolar type, alzheimer's dementia, DM with neuropathy, htn, DVT, parkinsonism and see below Past Medical History: Diagnosis Date Arthritis Dementia (HCC) Depression Diabetic neuropathy (HCC) Hyperlipidemia Hypertension Renal disorder Schizophrenia (HCC) Type 2 diabetes mellitus (HCC) Past Surgical History: Procedure Laterality Date SECTION Right right foot TOE AMPUTATION Right 01/06/2020 4th toe amp/ foot debridement/ Dr. Anat Pelayo Precautions (Including Weight-Bearing): Fall risk, Bed / chair alarm, and Contact isolation: MRSA ,WBAT RLE Caregiver Present for Session (Yes or No): No SUBJECTIVE: Patient Comment: I have pain, but not right now. Mmmhmm, re: if patient likes chicken (for lunch). Patient minimally verbal with conversation Pain Assessment: Pre-therapy pain level: 0 / 10 Pain location: No pain - Location N/A Pain intervention(s): No pain - Intervention N/A Post-therapy pain level: 0 / 10 Pain scale used: 0-10 SCALE Prior Living Environment and Level of Function: info from EHR as patient is unable to answer questions about home environment and baseline function. Lives with: daughter who works during the day Receives assistance from / other social supports available: choreworker 20 hours/week. Likely not 24 hour supervision Living environment (Type of residence / Entrance accessibility): 1-story house/ trailer, number of outside stairs: 2 Bathroom location and setup: shower chair, however, patient unable to identify if tub/shower or walk in Prior level of function: patient reports indep BADL and mobility using w/w family/choreworker provides IADL. Mobility device used prior to admission: w/w Equipment available: Shower chair and Wheeled walker Community access / Driving: Driven by others Social roles / Hobbies: television- reports yes to liking the 'young and restless' and game shows. Patient / Family goal(s): none stated Fall(s) within the last 6 months: Unable to respond OBJECTIVE: Appearance: Presentation upon OT arrival: Patient Supine with head of bed elevated Presentation upon OT departure: Patient Sitting in bedside recliner Bed / chair alarm in place and activated upon OT departure: Yes Call light within arms reach of patient at end of session: Yes - oriented patient to use, but uncertain comprehension Completed patient handoff and notified BUTTER MELTER / RN, name: peyton, of patient's location and functional status upon completion of session Cognitive / Perceptual Assessment: Oriented to self and hospital. No aspect of time. Not situation. Decreased command following - approx 50% accuracy in tasks. Limited initiation with verbalization and activity. UE ROM / Strength / Coordination: UNABLE TO FOLLOW COMMANDS FOR GMT- STRENGTH ASSESSMENT WITHOUT SPECIFIC UE POSITIONS (A/P)ROM - Right: LIMITED TO 80/120 SHOULDER FLEX/ABD, ELBOW AND DISTALLY WFL. REPORTS TIGHTNESS INAXILLA/SIDE WITH PASSIVE MOVEMENT Strength - Right: GROSSLY 4/5 SHOULDER, ELBOW AND 4+/5 COMPOSITE FINGER FLEX. (A/P)ROM - Left: LIMITED TO 90/120 SHOULDER FLEX/ABD, ELBOW AND DISTALLY WFL. REPORTS TIGHTNESS IN AXILLA/SIDE WITH PASSIVE MOVEMENT Strength - Left: GROSSLY 4-/5 SHOULDER, ELBOW AND 4/5 COMPOSITE FINGER FLEX. Hand Dominance: Right Stereotype Caster Strength (Right) GOOD Stereotype Caster Strength (Left): GOOD MINUS BILATERAL Serial Opposition: Decreased rate and Other: DOES NOT EXTEND FINGERS FULLY . SIGNIFICANTLY DECREASED OBJECT MANIPULATION WITH INCREASED TASK TIME AND DECREASED RESULTS MANIPULATING ADL OBJECTS AND GARMENTS INTERMITTENT SINGLE MYOCLONIC STYLE JERK THAT INTERFERES WITH UE FUNCTION. Balance: Static sitting balance: GOOD Dynamic sitting balance: GOOD MINUS Static standing balance: GOOD MINUS UNSUPPORTED Dynamic standing balance: NT SINGLE OCCURRENCE OF COMPLETE B KNEE FLEXION AND DROP FROM STANDING REQUIRING MAX/TOTAL ASSIST TO RECOVER. Mobility / Transfers: Bed mobility (Components & Assistance): MOD A SUPINE->SIT Transfer(s): SIT->STAND FROM BED UP TO W/W WITH CGA. PIVOT BED->CHAIR WITH CGA USING W/W. STAND->SIT TO CHAIR WITH CGA AND V/CS FOR ALIGNMENT TO CHAIR. Activities of Daily Living / Living Skills: UE dressing: Patient completed upper body dressing of Hospital gown as robe while Sitting on EOB with overall Moderate assistance. Patient required assistance for threading RUE and pulling around back. Lower Body Dressing: Patient completed lower body dressing of Underwear while Sitting on EOB with overall Maximal assistance. Patient required assistance for threading / unthreading RLE underwear, threading / unthreadingLLE underwear, and pulling underwear over hips. MOD A EACH COMPONENT. Footwear: Patient completed footwear of Slip-on shoe(s) and Footie(s) while Sitting on EOB with overall Moderate assistance. Patient required assistance for donning / doffing right sock / footie and donning / doffing left sock / footie, MIN A SLIP ON SHOES. Other: SELF FEEDING - PATIENT USES STANDARD UTENSIL TO STAB FOOD WITH MINIMAL DIFFICULTY, PLATE->MOUTH PATTERNS IN INSERTION INTO MOUTH WITHOUT DROPPAGE (WHILE SITTING UPRIGHT IN CHAIR). SLOW BUT FUNCTIONAL AFTER SET UP. PATIENT UNABLE TO OPEN CONTAINERS, CUT MEAT. ASSESSMENT: Rehab Potential (Prognosis): good MINUS Problem List: Patient has impairments including: Decreased UE ROM , Decreased coordination, Decreased mobility, Decreased endurance, Decreased cognition, Decreased safety awareness, Long-standing deficits, and Decreased ADL independence. Barriers to Discharge: Limited family support, Cognitive deficit, Limited safety awareness, Limitedinsight into deficits, Decreased endurance, Long standing deficits, Medical complications, Wound Care, Medication managment, and UNKNOWN IF 24 HOUR SUPERVISION - WHICH PATIENT NEEDS. PLAN: OT Discharge Recommendations this date: OT RECOMMENDATIONS: OT Recommendation: Group Home Facility (WITH SKILLED OT) Patient at risk for: Patient at high risk for: Falls, Readmission, Injury due to decreased ability to care for self, Injury due to impaired cognition, Injury due to reduced functional status, Injury due to balance deficits, Mismanagement of medications, Prolonged dependence for self care tasks, Developing secondary complications: poor health management Additional recommendation comments: Recommend SNF due to: Risk of injury at home, Unable to safely care for self in the home, Skilled therapy needed to address care for self in the home OT Recommendation/Plan Comments: PATIENT WILL NEED 24 HOUR SUPERVISION FOLLOWING D/C TO COMMUNITY. Justification of discharge recommendations flow sheet completed: Yes Frequency of therapy:OT Frequency during current admission: 2-3x/wk Intervention / Education needs: ADL training, Functional transfer training, Safety education, UE home exercise program education, and Cognitive re-orientation Education provided: Patient has been educated on ADL training and Functional transfer training. Individual(s) needs ongoing reinforcement. Short Term Goals / Care Plan: Multi-Disciplinary Problems (from Occupational Therapy) Active Problems Problem: Bathing Start Date: 11/11/22 Goal Start Date Expected End Date End Date STG - Patient will bathe body 11/11/22 11/18/22 -- Goal Details: IN SITTING/STANDING COMPONENT WITH MIN A USING LHBS NEEDED 1 TIME. Problem: Dressings Lower Extremities Start Date: 11/11/22 Goal Start Date Expected End Date End Date STG - Patient to complete lower body dressing 11/11/22 11/18/22 -- Goal Details: INCLUDING UNDERWEAR AND FOOTIES WITH MIN A 1 TIME. Problem: Dressing Upper Extremities Start Date: 11/11/22 Goal Start Date Expected End Date End Date STG - Patient will don shirt - Pullover or Button 11/11/22 11/18/22 -- Goal Details: - NOT HOSPITAL GOWN - WITH MIN A 1 TIME. Problem: Grooming Start Date: 11/11/22 Goal Start Date Expected End Date End Date STG - Patient will complete grooming 11/11/22 11/18/22 -- Goal Details: IN STANDING AT SINK WITH SET UP FOR ORAL CARE 1 TIME. Problem: Toileting Start Date: 11/11/22 Goal Start Date Expected End Date End Date STG - Patient will complete toileting tasks with 11/11/22 11/18/22 -- Goal Details: - ALL COMPONENTS - WITH CGA 1 TIME. Problem: Transfers Start Date: 11/11/22 Goal Start Date Expected End Date End Date STG - Patient will perform toilet transfer 11/11/22 11/18/22 -- Goal Details: INCLUDING UP/DOWN WITH SUPERVISION AND TO/FROM USING W/W WITH SUPERVISION 1 TIME. If this is the last note, consider this the discharge summary Nadege Zambrano OT 11/11/22 * Larry Cartwright - 11/11/2022 1:32 PM CDT Consult for PICC line placement. Consent for procedure signed and verified. All questions answered.Patient was draped in sterile fashion. The left brachial vein was visualized using ultrasound. 3 mLlidocaine given at insertion site. A 21 gauge needle was used to cannulate and visualize in left brachial vein. Wire was advanced without resistance or difficulty. The introducer was advanced without complications. PICC line was advanced without difficulty. Tip was confirmed by 3CG. Report to Peyton LAY. See flow sheet for details of measurements. Sterile technique maintained throughout procedure. PICC Lumen(s) has good blood return and f;lushes easily. If the insertion site where to start bleeding or leaking place a small pressure dressing over the insertion site for 20-30 minutes and/or until bleeding has stopped and change dressing and stat-lock if needed. Gilberto JACQUESN, RN, EMTP * Alison Benitez [facility] - 11/11/2022 11:22 AM CDT Pharmacokinetic Consult - Vancomycin Dosing Sixto Chakraborty is a 72 y.o. female who has been consulted for vancomycin dosing for osteomyelitis. Relevant clinical data and objective history reviewed: Creatinine Date Value Ref Range Status 11/11/2022 2.01 (H) 0.60 - 1.10 mg/dL Final 11/10/2022 1.93 (H) 0.60 - 1.10 mg/dL Final 11/09/2022 1.85 (H) 0.60 - 1.10 mg/dL Final BUN Date Value Ref Range Status 11/11/2022 32 (H) 8 - 25 mg/dL Final 11/10/2022 29 (H) 8 - 25 mg/dL Final 11/09/2022 28 (H) 8 - 25 mg/dL Final Estimated Creatinine Clearance: 20 mL/min (A) (by C-G 65 yr and older- minimum SCr 0.8 based on SCrof 2.01 mg/dL (H)). I/O last 3 completed shifts: In: 480 [P.O.:480] Out: 800 [Urine:800] Lab Results Component Value Date/Time WBC 8.2 11/11/2022 04:47 AM HGB 8.3 (L) 11/11/2022 04:47 AM HCT 27.7 (L) 11/11/2022 04:47 AM MCV 98.6 (H) 11/11/2022 04:47 AM LABPLAT 283 11/11/2022 04:47 AM Temp Readings from Last 3 Encounters: 11/11/22 36.5 ??C (97.7 ??F) (Axillary) 10/27/22 36.3 ??C (97.3 ??F) (Temporal) 10/13/22 36.3 ??C (97.3 ??F) (Temporal) Patient Weight 11/10/22 69.5 kg (153 lb 4.8 oz) Baseline culture/source/susceptibility: Lab Results Component Value [...] and read back by: Zoran Baca RN [phone] on 10/03/2022 14:12:18 by: Marta Simeon ME DIRECTEXAM 10/02/2022 Stain: Gram Positive Cocci in pairs and chains Time to culture positivity (anaerobic media): 11.1 hours Time to culture positivity (aerobic media): 11 hours Notification of: Gram Positive Cocci in pairs and chains called to and read back by: Nelia Crouch [phone] on 10/03/2022 08:51:39 by: Maddie Barrera S MICROBIOLOGY (.) 11/08/2022 Preliminary Report: Abundant Mixed microorganisms. Includes the following: Few Staphylococcus aureus Methicillin resistant (MRSA) by penicillin binding protein 2a (PBP2a) testing. Susceptibility testing results to follow. MICROBIOLOGY Final Report: No growth 11/06/2022 MICROBIOLOGY Final Report: No growth 11/06/2022 ORGANISM STAPHYLOCOCCUS AUREUS 11/08/2022 ORGANISM MIXED MICROORGANISMS. 11/08/2022 ORGANISM (CLINICALLY INSIGNIFICANT GROWTH 11/06/2022 Other antibiotics ordered include: metronidazole Dialysis pt: No ID consulted: Yes Assessment/Plan The patient has been receiving vancomycin random dosing. Vancomycin random level returned as 20.6 on 11/11/22 at 1022. Will order dose of 1000 mg IV once. Next vancomycin random level ordered to be drawn 11/13/22 at 0600. Pharmacy will continue to follow the patient???s culture results and clinical progress daily. Day 6 of therapy Alison Benitez PharmD * Krishna Morgan MD - 11/11/2022 9:14 AM CDT Images from the original note were not included. Infectious Disease Sixto Chakraborty Admit Date: 11/06/2022 LOS: 5 Days Consulting Physician:Bev Adames MD Reason for consult:OM toe Interval Course Status post PICC line placement Wound culture right toe wound MRSA, mixed New Symptoms Patient complain of feeling dizzy today ATBX Vanc/cefepime/Flagyl Data Vitals: 11/10/22200411/10/22 2239 11/10/22 2350 11/11/22 0736 BP: (!) 197/83 164/70 135/55 142/69 BP Location: Left arm Left arm Patient Position: Lying Lying Pulse: 72 72 97 64 Resp: 18 16 18 15 Temp: 37 ??C (98.6 ??F) 36.6 ??C (97.8 ??F) 36.9 ??C (98.4 ??F) 36.5 ??C (97.7 ??F) TempSrc: Axillary Axillary SpO2: 97% 98% 98% 92% Weight: Height: Temp (24hrs), Av.8 ??C (98.3 ??F), Min:36.5 ??C (97.7 ??F), Max:37.3 ??C (99.1 ??F) Recent Labs Lab Units 11/11/2244611/10/22 0657 11/09/22 1050 WBC K/cumm 8.2 8.6 8.5 HEMOGLOBIN g/dL 8.3* 8.4* 8.7* HEMATOCRIT % 27.7* 27.9* 28.5* PLATELETS K/cumm 283 311 317 Recent Labs Lab Units 11/11/2244611/10/22 0657 11/09/22 1050 BUN SERUM mg/dL 32* 29* 28* CREATININE mg/dL 2.01* 1.93* 1.85* Scheduled Meds:amLODIPine, 5 mg, oral, Nightly atorvastatin, 20 mg, oral, Daily benztropine, 1.5 mg, oral, Nightly carvediloL, 12.5 mg, oral, BID with meals (bkfst, dinner) enoxaparin, 30 mg, subcutaneous, Daily-2100 famotidine, 10 mg, oral, Nightly insulin glargine, 0.25 Units/kg, subcutaneous, Nightly insulin lispro, 0-10 Units, subcutaneous, TID with meals insulin lispro, 0-5 Units, subcutaneous, Nightly insulin lispro, 0.083 Units/kg, subcutaneous, TID with meals losartan, 100 mg, oral, Daily metroNIDAZOLE, 500 mg, intravenous, Q8H SOL pregabalin, 150 mg, oral, Nightly risperiDONE, 2 mg, oral, Nightly Continuous Infusions: PRN Meds:. acetaminophen albuterol HFA aluminum-magnesium hydroxide-simethicone dextrose OR dextrose glucagon ondansetron oxyCODONE polyethylene glycol Review of Systems: Gen: denies fevers, denies chills, denies sweats, denies unintentional weight loss HEENT: Denies sore throat, denies thrush Neck: Denies palpable lymph nodes, denies neck stiffness Cv: denies chest pain, denies palpitations Resp: Denies SOB, Denies orthopnea Gi: Denies abdominal pain, Denies diarrhea, denies n/v Extrem: Denies gross deformities, denies joint pain, denies myalgias, positive right great toe wound Skin: Denies rashes, denies lesions Neuro: Denies weakness, denies paresthesias, denies memory loss Psych: denies depression, denies anxiety Objective: Vitals: 24hr Min/Max: Temp Min: 36.4 ??C (97.6 ??F) Max: 37.4 ??C (99.3 ??F) Pulse Min: 57 Max: 66 BP Min: 112/50 Max: 167/95 Resp Min: 17 Max: 19 SpO2 Min: 93 % Max: 100 % Physical Exam: General appearance: alert, cooperative, no distress HEENT: (-)icterus, Oropharnyx is normal, NCAT Neck: No palpable LN Lungs: breath sounds normal and symmetric; minimal respiratory effort, no r/w/c Heart: regular rhythm, normal S1 and S2, no m/r/g Abdomen: soft without mass, non-tender, +bowel sounds, no HSM Skin: (-)new rashes, no ulcerations MSK: no gross deformities, FROM Extremities : Positive Edema, pulses present bilaterally, positive erythema induration of the rightgreat toe crusted wound on the tip of the toe Neuro: No focal deficits Psych: Appropriate mood and affect Lab/Radiology/Diagnostic Review: 11/08 MRI right foot without IMPRESSION: 1. Distal right great toe wound with osteomyelitis of the distal phalanx and small erosions of the distal tuft. 11/06 x-ray right foot IMPRESSION: Findings/impression: Partial amputation of the 4th digit. No acute fracture. Atherosclerotic calcifications are demonstrated in the peripheral vasculature. Erosive changes are noted in the 1st digit distal tuft with associated irregularity of the soft tissue. Findings may represent cellulitis with associated osteomyelitis in the appropriate clinical setting 10/11 arterial Doppler lower extremity INTERPRETATION Right ankle-brachial index of 1.1 which is normal. Left ankle-brachial index of 1.1 which is normal. 11/08 wound cultures right great toe MRSA, mixed organism 11/06 blood culture no growth 11/06 urine culture clinically insignificant Assessment: Osteomyelitis right great toe with possible cellulitis CKD Type 2 diabetes with neuropathy Pyuria Hypertension Hyperlipidemia Dementia Plan: Continue on vanc and Flagyl to 12/23 CBC,CMP Vanc levels weekly fax to [phone] Follow-up blood cultures, no growth to date Follow final wound culture Podiatry has been consulted, no intervention planned Arterial Doppler lower extremity negative MRI right foot with osteo Supportive care * Krishna Morgan MD - 11/10/2022 2:43 PM CDT Images from the original note were not included. Infectious Disease Sixto Nadine Chakraborty Admit Date: 11/06/2022 LOS: 4 Days Consulting Physician:Bev Adames MD Reason for consult:OM toe Interval Course Wound culture right toe wound MSSA New Symptoms Patient has no new symptoms ATBX Vanc/cefepime/Flagyl Data Vitals: 11/09/22 1524 11/09/22 2000 11/10/22 0217 11/10/22 0755 BP: 165/79 (!) 176/61 141/46 158/70 BP Location: Left arm Left arm Left arm Patient Position: HOB 30 degrees HOB 30 degrees Lying Pulse: 65 71 64 62 Resp: 18 18 Temp: 36.4 ??C (97.5 ??F) 37.4 ??C (99.3 ??F) TempSrc: Oral Oral Oral SpO2: 99% 98% 97% 96% Weight: Height: Temp (24hrs), Av.9 ??C (98.4 ??F), Min:36.4 ??C (97.5 ??F), Max:37.4 ??C (99.3 ??F) Recent Labs Lab Units 11/10/22 0657 11/09/22 1050 11/08/22 1116 WBC K/cumm 8.6 8.5 7.5 HEMOGLOBIN g/dL 8.4* 8.7* 8.9* HEMATOCRIT % 27.9* 28.5* 29.5* PLATELETS K/cumm 311 317 298 Recent Labs Lab Units 11/10/22 0657 11/09/22 1050 11/08/22 1116 BUN SERUM mg/dL 29* 28* 29* CREATININE mg/dL 1.93* 1.85* 1.91* Scheduled Meds:amLODIPine, 5 mg, oral, Nightly atorvastatin, 20 mg, oral, Daily benztropine, 1.5 mg, oral, Nightly carvediloL, 12.5 mg, oral, BID with meals (bkfst, dinner) cefepime, 2,000 mg, intravenous, Q24H SOL enoxaparin, 30 mg, subcutaneous, Daily-2100 famotidine, 10 mg, oral, Nightly insulin glargine, 0.25 Units/kg, subcutaneous, Nightly insulin lispro, 0-10 Units, subcutaneous, TID with meals insulin lispro, 0-5 Units, subcutaneous, Nightly insulin lispro, 0.083 Units/kg, subcutaneous, TID with meals losartan, 100 mg, oral, Daily metroNIDAZOLE, 500 mg, intravenous, Q8H SOL pregabalin, 150 mg, oral, Nightly risperiDONE, 2 mg, oral, Nightly Continuous Infusions: PRN Meds:. acetaminophen albuterol HFA aluminum-magnesium hydroxide-simethicone dextrose OR dextrose glucagon ondansetron oxyCODONE polyethylene glycol Review of Systems: Gen: denies fevers, denies chills, denies sweats, denies unintentional weight loss HEENT: Denies sore throat, denies thrush Neck: Denies palpable lymph nodes, denies neck stiffness Cv: denies chest pain, denies palpitations Resp: Denies SOB, Denies orthopnea Gi: Denies abdominal pain, Denies diarrhea, denies n/v Extrem: Denies gross deformities, denies joint pain, denies myalgias, positive right great toe wound Skin: Denies rashes, denies lesions Neuro: Denies weakness, denies paresthesias, denies memory loss Psych: denies depression, denies anxiety Objective: Vitals: 24hr Min/Max: Temp Min: 36.4 ??C (97.6 ??F) Max: 37.4 ??C (99.3 ??F) Pulse Min: 57 Max: 66 BP Min: 112/50 Max: 167/95 Resp Min: 17 Max: 19 SpO2 Min: 93 % Max: 100 % Physical Exam: General appearance: alert, cooperative, no distress HEENT: (-)icterus, Oropharnyx is normal, NCAT Neck: No palpable LN Lungs: breath sounds normal and symmetric; minimal respiratory effort, no r/w/c Heart: regular rhythm, normal S1 and S2, no m/r/g Abdomen: soft without mass, non-tender, +bowel sounds, no HSM Skin: (-)new rashes, no ulcerations MSK: no gross deformities, FROM Extremities : Positive Edema, pulses present bilaterally, positive erythema induration of the rightgreat toe crusted wound on the tip of the toe Neuro: No focal deficits Psych: Appropriate mood and affect Lab/Radiology/Diagnostic Review: 11/08 MRI right foot without IMPRESSION: 1. Distal right great toe wound with osteomyelitis of the distal phalanx and small erosions of the distal tuft. 11/06 x-ray right foot IMPRESSION: Findings/impression: Partial amputation of the 4th digit. No acute fracture. Atherosclerotic calcifications are demonstrated in the peripheral vasculature. Erosive changes are noted in the 1st digit distal tuft with associated irregularity of the soft tissue. Findings may represent cellulitis with associated osteomyelitis in the appropriate clinical setting 10/11 arterial Doppler lower extremity INTERPRETATION Right ankle-brachial index of 1.1 which is normal. Left ankle-brachial index of 1.1 which is normal. 11/08 wound cultures right great toe MSSA mixed organism 11/06 blood culture no growth 11/06 urine culture clinically insignificant Assessment: Osteomyelitis right great toe with possible cellulitis CKD Type 2 diabetes with neuropathy Pyuria Hypertension Hyperlipidemia Dementia Plan: Change vanc DC cefepime Continue on Flagyl Patient need long-term IV antibiotic Follow-up blood cultures, no growth to date Follow wound culture pending Podiatry has been consulted, no intervention planned Arterial Doppler lower extremity negative MRI right foot with osteo Patient instructed to elevate lower extremity Supportive care * Larry Dennis MD - 11/10/2022 2:26 PM CDT Images from the original note were not included. HOSPITALIST PROGRESS NOTE PCP: Duane Corcoran [phone] Admit Date: 11/06/2022 10:11 AM LOS: 4 CHIEF COMPLAINT / ADMITTING HPI Presents emergency department on November 06, 2022 with a wound to the right foot, redness, swelling of the right great toe. 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 She is post debridement October 30, 2022 by wound care. Endorses worsening redness and swelling since the procedure. Not currently on antibiotics. Patient has a historyof dementia, documented A/O x 1-2 at baseline, history is limited to the EMR with some information provided by the patient. Labs significant for stable CKD, stable anemia. Urine with 11-20 wbc's, 2+ LE, negative nitrite. CT head no acute intracranial pathology. X-ray of the right great toe concerning for cellulitis with associated osteomyelitis. Vancomycin, Flagyl, cefepime initiated. INTERVAL HISTORY 11/07/2022: Patient in bed pleasant, seen by Podiatry appreciate consult. X-ray reviewed, vascular surgery were consulted as per Podiatry recommendation. No plans for surgery today. Podiatry signing off. Patient states she does not want any amputation. 11/08/2022: Seen in bed eating breakfast, seen by vascular surgery appreciate consult. Seen by Infectious Disease, MRI toe shows osteomyelitis distal phalanx Continue antibiotics as per Infectious Disease. Blood cultures no growth to date. 11/10/2022: Patient in bed doing about the same. Blood pressure was a little elevated yesterday. Improved some today. Case management still working on placement appreciate vascular surgery follow-up PT/OT. Remains on IV antibiotics will require long-term REVIEW OF SYSTEMS No chest pain or shortness of breath no nausea vomiting DATA Vitals: 11/09/22 1524 11/09/22199911/10/22 0217 11/10/22 0755 BP: 165/79 (!) 176/61 141/46 158/70 BP Location: Left arm Left arm Left arm Patient Position: HOB 30 degrees HOB 30 degrees Lying Pulse: 65 71 64 62 Resp: 18 18 Temp: 36.4 ??C (97.5 ??F) 37.4 ??C (99.3 ??F) TempSrc: Oral Oral Oral SpO2: 99% 98% 97% 96% Weight: Height: Intake/Output Summary (Last 24 hours) at 11/10/2022 1426 Last data filed at 11/10/2022 0902 Gross per 24 hour Intake 240 ml Output -- Net 240 ml CURRENT LAB RESULTS Laboratory results have been reviewed by me: Recent Results (from the past 12 hour(s)) Magnesium Collection Time: 11/10/22 6:57 AM Result Value Ref Range Magnesium 2.0 1.4 - 2.5 mg/dL Basic metabolic panel Collection Time: 11/10/22 6:57 AM Result Value Ref Range Sodium 143 135 - 145 mmol/L Potassium, pl 4.3 3.3 - 4.9 mmol/L Chloride 112 (H) 97 - 110 mmol/L CO2 21 (L) 22 - 32 mmol/L Anion gap 10 2 - 15 mmol/L BUN 29 (H) 8 - 25 mg/dL Creatinine 1.93 (H) 0.60 - 1.10 mg/dL Glucose 161 70 - 199 mg/dL Calcium 8.8 8.5 - 10.3 mg/dL CBC with auto differential Collection Time: 11/10/22 6:57 AM Result Value Ref Range WBC 8.6 3.8 - 9.9 K/cumm Hgb 8.4 (L) 11.9 - 15.5 g/dL Hct 27.9 (L) 35.6 - 45.5 % Plt 311 150 - 400 K/cumm MPV 11.2 9.1 - 12.3 fL RBC 2.87 (L) 3.90 - 5.20 M/cumm MCV 97.2 (H) 81.3 - 96.4 fL MCH 29.3 27.1 - 33.3 pg MCHC 30.1 (L) 32.3 - 35.7 g/dL RDW CV 15.5 (H) 11.1 - 14.9 % RDW SD 55.1 (H) 35.7 - 48.1 fL NRBC abs 0.00 0.00 - 0.01 K/cumm Vancomycin level random Collection Time: 11/10/22 6:57 AM Result Value Ref Range Vancomycin random 17.5 mcg/mL Differential, auto Collection Time: 11/10/22 6:57 AM Result Value Ref Range Neutrophil abs 5.3 1.7 - 6.5 K/cumm Imm gran abs 0.0 0.0 - 0.1 K/cumm Lymphocyte abs 2.2 0.8 - 3.3 K/cumm Monocyte abs 0.7 0.2 - 0.8 K/cumm Eosinophil abs 0.3 0.0 - 0.5 K/cumm Basophil abs 0.0 0.0 - 0.1 K/cumm Neutrophil pct 62.1 % Imm gran pct 0.4 % Lymphocyte pct 25.9 % Monocyte pct 7.7 % Eosinophil pct 3.4 % Basophil pct 0.5 % eGFR Collection Time: 11/10/22 6:57 AM Result Value Ref Range eGFR 27 mL/min/1.73 m2 POCT glucose Collection Time: 11/10/22 1:01 PM Result Value Ref Range Glucose, POC 207 (H) 70 - 199 mg/dL LAB TREND CBC: Lab Results Component Value Date WBC 8.6 11/10/2022 WBC 8.5 11/09/2022 WBC 7.5 11/08/2022 HGB 8.4 (L) 11/10/2022 HGB 8.7 (L) 11/09/2022 HGB 8.9 (L) 11/08/2022 HCT 27.9 (L) 11/10/2022 HCT 28.5 (L) 11/09/2022 HCT 29.5 (L) 11/08/2022 BMP: Lab Results Component Value Date SODIUM 143 11/10/2022 SODIUM 144 11/09/2022 SODIUM 144 11/08/2022 POTASSIUM 4.3 11/10/2022 POTASSIUM 4.3 11/09/2022 POTASSIUM 4.1 11/08/2022 CHLORIDE 112 (H) 11/10/2022 CREATININE 1.93 (H) 11/10/2022 CREATININE 1.85 (H) 11/09/2022 CREATININE 1.91 (H) 11/08/2022 CALCIUM 8.8 11/10/2022 CALCIUM 8.6 11/09/2022 CALCIUM 8.8 11/08/2022 No results found for: BNP No results found for: ALKPHOS Lab Results Component Value Date MAGNESIUM 2.0 11/10/2022 MAGNESIUM 1.9 11/09/2022 MAGNESIUM 2.0 11/08/2022 No results found for: AST No results found for: ALT No results found for: PHOS RADIOLOGY Imaging results have been reviewed by me: MRI Foot Right WO Contrast ED Interpretation PROCEDURE INFORMATION: Exam: MR Right Lower Extremity Other Than Joint Without Contrast; Foot Exam date and time: 11/08/2022 3:20 PM Age: 72 years old Clinical indication: Other: Osteomyelitis; Additional info: Osteomyelitis, foot, follow up TECHNIQUE: Imaging protocol: Magnetic resonance imaging of the right lower extremity without contrast. Exam focused on the foot. COMPARISON: 1. CR XR FOOT RIGHT 3 OR MORE VIEWS 09/04/2022 12:16 PM 2. MRI Foot Right W/WO Contrast 12/26/2019 9:05 PM 3. CR XR TOE GREAT RIGHT MINIMUM 2 VIEWS 11/06/2022 11:54 AM FINDINGS: Bones/joints: Status post amputation of the 4th toe and head of 4th metatarsal. There are nonspecific erosive changes involving the tuft of the 1st distal phalanx, appear new in comparison with the previous MRI, slightly progressed in comparison with the March radiographs. On T1 weighted images, there is mild sclerosis within the remnant tip of the 1st distal phalanx. There is subtle predominantly subcortical increased T2 marrow signal seen within the 1st distal phalanx, suboptimally assessed due to the large ezpwh-gj-[id number] imaging provided. Questionable subtle increased T2 signal versus inhomogeneous fat saturation involving 5th distal phalanx. No evidence of acute fracture or osteonecrosis. No focal marrow replacing lesion seen. 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 LIGAMENTS: Lisfranc ligament: Unremarkable. No evidence of tear. TENDONS: Flexor tendons of foot: Tendinosis and interstitial tearing of the flexor hallucis longus tendon. Tibialis posterior tendon: Unremarkable as visualized. Peroneal tendons: Unremarkable as visualized. Extensor tendons of foot: Unremarkable. No evidence of tear. Tibialis anterior tendon: Unremarkable as visualized. Achilles tendon: Tendinosis distal Achilles tendon. Tarsal canal (Sinus tarsi): Unremarkable. Tarsal tunnel: Unremarkable. Soft tissues: Skin thickening and soft tissue edema within the great toe and foot. Edema extends into the ankle and distal lower leg incompletely visualized on this study. No focal soft tissue mass. No discrete, drainable fluid collection. Atrophy of and edema within the intrinsic foot muscles presumed secondary to peripheral neuropathy. Plantar fascia: Mild chronic plantar fasciitis. IMPRESSION: 1. Skin thickening and soft tissue edema involving great toe and foot extending into ankle and lower leg incompletely visualized on this study, consistent with skin and soft tissue infection in the appropriate clinical context. No discrete, drainable abscess seen. 2. Erosive changes involving the tuft of 1st distal phalanx as discussed. There is some subtle predominantly subcortical increased T2 marrow signal within the 1st distal phalanx with some subtle sclerosis noted in the remnant tip on T1 weighted images. These marrow signal changes are nonspecific, could represent mild nonspecific osteitis. Early osteomyelitis is difficult to exclude, evaluation suboptimal given large zjcgj-ia-wuga imaging that included the entire foot. Small hgaza-iu-guxc MRI focused on the forefoot would provide more detailed assessment of the forefoot marrow signal alterations. 3. Questionable nonspecific increased T2 signal versus inhomogeneous fat saturation involving 5th distal phalanx. Question any symptoms involving 5th toe raise suspicion for osteitis or osteomyelitis. Again small gsnav-qe-aumt MRI focused on the forefoot could be performed for further assessment. THIS DOCUMENT HAS BEEN ELECTRONICALLY SIGNED BY KERVIN LEONE MD THIS DOCUMENT WAS READ BY A AD RADIOLOGIST, ANY QUESTIONS PLEASE CALL [phone] Final Result 1. Distal right great toe wound with osteomyelitis of the distal phalanx and small erosions of the distal tuft. Dictated by: Radha Bell M.D. The radiology attending physician has personally reviewed this study, and had reviewed and/or edited this written report and agrees with it. Electronically signed by: Weston Kasper MD, PHD US TEO Final Result RIGHT LEG:Patent right lower extremity vasculature with multiphasic waveforms. The TEO is 1.06 and TBI is 1.35. LEFT LEG:Normal TEO at rest 1.02 and TBI 1.02 . Electronically signed by: Mir Zavaleta M.D. US Arterial Duplex Lower Extremity Right Limited Final Result RIGHT LEG:Patent right lower extremity vasculature with multiphasic waveforms. The TEO is 1.06 and TBI is 1.35. LEFT LEG:Normal TEO at rest 1.02 and TBI 1.02 . Electronically signed by: Mir Zavaleta M.D. CT Head WO Contrast Final Result No acute intracranial pathology. Electronically signed by: Brionna Randhawa M.D. XR Toe Great Right Minimum 2 Views Final Result Findings/impression: Partial amputation of the 4th digit. No acute fracture. Atherosclerotic calcifications are demonstrated in the peripheral vasculature. Erosive changes are noted in the 1st digit distal tuft with associated irregularity of the soft tissue. Findings may represent cellulitis with associated osteomyelitis in the appropriate clinical setting Electronically signed by: Phil Pete II, D.O. PROCEDURES MEDICATIONS FOR CURRENT ENCOUNTER Scheduled Meds: atorvastatin, 20 mg, oral, Daily benztropine, 1.5 mg, oral, Nightly carvediloL, 6.25 mg, oral, BID with meals (bkfst, dinner) cefepime, 2,000 mg, intravenous, Q24H SOL enoxaparin, 30 mg, subcutaneous, Daily-2100 famotidine, 10 mg, oral, Nightly insulin glargine, 0.25 Units/kg, subcutaneous, Nightly insulin lispro, 0-10 Units, subcutaneous, TID with meals insulin lispro, 0-5 Units, subcutaneous, Nightly insulin lispro, 0.083 Units/kg, subcutaneous, TID with meals losartan, 100 mg, oral, Daily metroNIDAZOLE, 500 mg, intravenous, Q8H SOL pregabalin, 150 mg, oral, Nightly risperiDONE, 2 mg, oral, Nightly Continuous Infusions: PRN Meds:. acetaminophen, 650 mg albuterol HFA, 2 puff aluminum-magnesium hydroxide-simethicone, 30 mL dextrose, 15 g OR dextrose, 250 mL glucagon, 1 mg ondansetron, 4 mg oxyCODONE, 5 mg polyethylene glycol, 17 g Diet: Dietary Orders (From admission, onward) Start Ordered 11/07/22 2100 Bedtime snack At bedtime Comments: If bedtime BG is less than 100mg/dl, give patient a 15 gram carbohydrate snack. 11/07/22 0127 11/07/22 1049 Adult Diet Restricted; Consistent Carb 2000 chanelle Diet effective now Question Answer Comment (CH) Diet type Restricted Diabetic: Consistent Carb 2000 chanelle 11/07/22 1049 EXAM Vitals: 11/10/22 0755 BP: 158/70 Pulse: 62 Resp: 18 Temp: SpO2: 96% General appearance: appears stated age, cooperative, and no distress Head: Normocephalic, without obvious abnormality, atraumatic Lungs: clear to auscultation bilaterally Heart: S1, S2 normal Abdomen: soft, non-tender; bowel sounds normal; no masses, no organomegaly Extremities: No edema see toe pictures below ASSESSMENT AND PLAN All Diagnosis Present on Admission Unless Otherwise Stated: Right great toe osteomyelitis wound. Patient refuses amputation seen by Podiatry recommend vascularABI they have signed off. Appreciate Infectious Disease input concerning long-term antibiotics. Weight-bearing as tolerated per Podiatry. Wound care. MRI shows osteomyelitis, continue antibiotics as per Infectious Disease currently on vancomycin cefepime and Flagyl will need long-term antibiotics Diabetes mellitus continue Lantus insulin sliding scale insulin monitor fingerstick blood sugars, needs tight blood sugar control. Abnormal urinalysis follow. Culture insignificant growth Essential hypertension continue losartan monitor blood pressure closely. Blood pressure has been running a little high may have to adjust antihypertensives for better blood pressure control Hyperlipidemia continue statin Bipolar disorder schizoaffective continue home medications Chronic kidney disease stage 4 monitor renal function avoid nephrotoxic agents and hypotension Alzheimer's dementia stable. DVT prophylaxis Lovenox Medical Decision Making Complexity: Moderate Consulting physicians: Treatment Team: Consulting Physician: Rene Leroy DPM; Consulting Physician: Portillo Marin DPM; Consulting Physician: Krishna Morgan MD Disposition: Will need placement long-term IV antibiotics Code status: Full Code Voice recognition software MModal Fluency Direct was used dictate and transcribe this document. Engraver Signature variances may occur. Despite proofreading, typographical errors may occur. Larry Dennis MD. HOSPITALIST 11/10/2022 2:26 PM * Natacha Katz, OT - 11/10/2022 11:13 AM CDT Occupational Therapy 11/10/22 1113 General Session Type Other (comment) (No OT Provided. 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 Natacha Katz, OT 11/10/22 1:50 PM * Alison Benitez, [facility] - 11/10/2022 9:59 AM CDT Pharmacokinetic Consult - Vancomycin Dosing Sixto Chakraborty is a 72 y.o. female who has been consulted for vancomycin dosing for osteomyelitis . Relevant clinical data and objective history reviewed: Creatinine Date Value Ref Range Status 11/10/2022 1.93 (H) 0.60 - 1.10 mg/dL Final 11/09/2022 1.85 (H) 0.60 - 1.10 mg/dL Final 11/08/2022 1.91 (H) 0.60 - 1.10 mg/dL Final BUN Date Value Ref Range Status 11/10/2022 29 (H) 8 - 25 mg/dL Final 11/09/2022 28 (H) 8 - 25 mg/dL Final 11/08/2022 29 (H) 8 - 25 mg/dL Final Estimated Creatinine Clearance: 20.8 mL/min (A) (by C-G 65 yr and older- minimum SCr 0.8 based on SCr of 1.93 mg/dL (H)). I/O last 3 completed shifts: In: - Out: 200 [Urine:200] Lab Results Component Value Date/Time WBC 8.6 11/10/2022 06:57 AM HGB 8.4 (L) 11/10/2022 06:57 AM HCT 27.9 (L) 11/10/2022 06:57 AM MCV 97.2 (H) 11/10/2022 06:57 AM LABPLAT 311 11/10/2022 06:57 AM Temp Readings from Last 3 Encounters: 11/09/22 37.4 ??C (99.3 ??F) 10/27/22 36.3 ??C (97.3 ??F) (Temporal) 10/13/22 36.3 ??C (97.3 ??F) (Temporal) Patient Weight 11/06/22 69.5 kg (153 lb 3.2 oz) Baseline culture/source/susceptibility: Lab Results Component Value Date DIRECTEXAM 11/08/2022 Stain: No polymorphonuclear leukocytes seen. Rare Gram Positive Bacilli DIRECTEXAM 10/03/2022 Stain: No polymorphonuclear leukocytes seen. No organisms seen. DIRECTEXAM 10/02/2022 Molecular Analysis: Streptococcus species detected by the [facility] [employer] Blood Culture Nucleic Acid Test. This test does not exclude the possibility of a mixed bacterial infection. Notification of: Streptococcus species called to and read back by: Zoran Baca RN [phone] on 10/03/2022 14:12:18 by: Marta Simeon ME DIRECTEXAM 10/02/2022 Stain: Gram Positive Cocci in pairs and chains Time to culture positivity (anaerobic media): 11.1 hours Time to culture positivity (aerobic media): 11 hours Notification of: Gram Positive Cocci in pairs and chains called to and read back by: Nelia Crouch [phone] on 10/03/2022 08:51:39 by: Maddie Barrera S MICROBIOLOGY (.) 11/08/2022 Preliminary Report: Few Staphylococcus aureus Methicillin resistant (MRSA) by penicillin binding protein 2a (PBP2a) testing. Susceptibility testing results to follow. MICROBIOLOGY Preliminary Report: No growth to date. 11/06/2022 MICROBIOLOGY Preliminary Report: No growth to date. 11/06/2022 ORGANISM STAPHYLOCOCCUS AUREUS 11/08/2022 ORGANISM (CLINICALLY INSIGNIFICANT GROWTH 11/06/2022 ORGANISM STREPTOCOCCUS MITIS GROUP 10/02/2022 ORGANISM STREPTOCOCCUS MITIS GROUP 10/02/2022 ORGANISM STREPTOCOCCUS MITIS GROUP 10/02/2022 Other antibiotics ordered include: cefepime and metronidazole Dialysis pt: No ID consulted: Yes Assessment/Plan The patient has been receiving vancomycin random dosing. Vancomycin random level returned as 17.5 on 11/10/22 at 0657. Will order dose of 1000 mg IV once. Next vancomycin random level ordered to be drawn 5/23/23 at 1000. Pharmacy will continue to follow the patient???s culture results and clinical progress daily. Day 5 of therapy Alison Benitez, PharmD * Saul Nellynader Burdick, PT - 11/10/2022 9:48 AM CDT Physical Therapy INITIAL EVALUATION PATIENT'S NAME:Sixto Chakraborty ROOM:[id number] :1950 AGE:72 y.o. TIME IN:0948 TIME OUT:1014 CURRENT DIAGNOSIS AND HOSPITAL COURSE: Patient presents with wound to R foot, redness, swelling of R great toe. Has history of necrosis to distal aspect of R great toe, actively being treated by Wound Care and Podiatry. S/p debridement on 10/30/22. Endorses worsening redness and swelling since the procedure. Not currently on antibiotics. X-ray of the right great toe concerning for cellulitis with associated osteomyelitis. Podiatry recommend wound care vs amputation of digit with pt refusing amputation with weight bearing status WBAT. Infectious disease consult for antibiotic management and osteomyelitis, recommending MRI R foot and elevated R LE. Vascular surgery recommend check TEO and arterial duplex, wound care per podiatry. MRI with osteomyelitis of distal phalanx. Patient Active Problem List Diagnosis Schizoaffective disorder, bipolar type ([facility]) ([facility]) Diabetic neuropathy (HCC) Type 2 diabetes mellitus with diabetic neuropathy, with long-term current use of insulin ([facility]) ([facility]) Hypertension associated with diabetes ([facility]) Amputation of toe of right foot ([facility]) ([facility]) Iron deficiency anemia Gastroesophageal reflux disease without esophagitis Hyperlipidemia associated with type 2 diabetes mellitus (HCC) Dementia (HCC) Schizoaffective disorder, bipolar type ([facility]) ([facility]) 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 2 diabetes mellitus ([facility]) ([facility]) Encounter for Medicare annual wellness exam Late onset Alzheimer's dementia without behavioral disturbance ([facility]) Volume overload Anemia Toe necrosis (CMS/HCC) ([facility]) Physical deconditioning Left leg DVT (CMS/HCC) ([facility]) Pulmonary nodule Retention of urine, unspecified Unspecified osteoarthritis, unspecified site Unsteadiness on feet Weakness Parkinsonism (HCC) Wheezing Anemia in stage 4 chronic kidney disease (HCC) Osteomyelitis of great toe of right foot (CMS/HCC) (HCC) Abnormal urinalysis Past Medical History: Diagnosis Date Arthritis Dementia (HCC) Depression Diabetic neuropathy (HCC) Hyperlipidemia Hypertension Renal disorder Schizophrenia (HCC) Type 2 diabetes mellitus (HCC) Past Surgical History: Procedure Laterality Date SECTION Right right foot TOE AMPUTATION Right 01/06/2020 4th toe amp/ foot debridement/ Dr. Anat Pelayo SUBJECTIVE Taken from pt who is a questionable historian LIVES WITH: daughter (who works during the day) LIVING ENVIRONMENT: (Type of residence / Entrance accessibility): 1 story house, [address] [facility] [place], [place] LEVEL OF FUNCTION: Patient reports independence with: BADLs, mobility with w/w, is retired and enjoys playing ball in her free time. Reports daughter performs IADLs. Reports 0 falls in the last 6 months. EQUIPMENT OWNED: w/w EQUIPMENT USED: w/w SOCIAL SUPPORTS: daughter PATIENT/FAMILY GOAL: none stated MENTAL STATUS/ORIENTATION: Name: Sixto Chakraborty Birthday: 1950 Month: I don't remember unable to choose from august or october Year: 2022 chooses from 2002, 2012, 2022 Day: Location: [facility] 2003[facility] hospital chooses from hospital, restaurant, home Situation: my legs I had pain in my legs OBJECTIVE PRECAUTIONS: fall and bed/chair alarm, WBAT R LE APPEARANCE/POSTURE: Patient sitting in b/s recliner, room air, pure wick, peripheral IV, call lightwithin reach and on, no apparent distress, alarm is not activated VITAL SIGNS: Resting heart rate: 62 Post-activity heart rate: 66 Resting O2 sat: 96% Post-activity O2 sat: 96% PAIN: Pre-therapy pain level: 0/10 Pain location: n/a Pain intervention: n/a Post-therapy pain level/response to intervention: 0/10 LE ASSESSMENTS: Right LE ROM: WFL except ankle DF limited to neutral Left LE ROM: WFL except ankle DF limited to neutral Right LE strength: ankle 3+/5, knee 3+/5, hip flexion 3-/5 Left LE strength: ankle 3+/5, knee 3+/5, hip flexion 3-/5 Coordination: Not formally assessed Tone: WFL MOBILITY: Bed mobility: Supine to sit: Not assessed this date. Patient sitting in b/s recliner upon PT arrival in room and sitting in b/s recliner upon PT departure from room. Transfers: Sit to/from stand: CG assist using w/w, pt requiring two attempts for adequate force production to clear bottom off of b/s recliner, holds onto w/w when sitting despite verbal cues to let go and reach for arm rests Ambulation: 90' with CG assist using w/w, pt demonstrates slow, paced lnany, no loss of balance, flexed posture, narrow RENETTA, decreased foot clearance and step length bilaterally Stairs: Not formally assessed Balance/Special Tests: Static sitting balance: G supported Dynamic sitting balance: G supported Static standing balance: G with w/w Dynamic standing balance: G and G- with w/w AMPAC: Basic Mobility - 6 Click How much difficulty does the patient have: Turning over in bed: A little How much difficulty does the patient currently have: Sitting down and standing up from a chair witharms?: A little How much difficulty does the [...] Climbing 3-5 steps with a railing?: A lot Total 6 Click Score (range 6-24): 17 6 click interpretation: AM-PAC 6 Click scores > 18 = Likely home discharge AM-PAC 6 Click scores < 18 = Likely require inpatient rehab or group home placement at discharge APPEARANCE/POSTURE (end of session): Patient sitting in b/s recliner, appearance otherwise unchanged from PT arrival in room , call light within reach and on, no apparent distress, alarm is activated, hand off given to ALIREZA Jimenez. EDUCATION: PT plan of care, role of PT, benefits of mobility, discharge recommendations, weight bearing status RESPONSE TO EDUCATION: needs reinforcement ASSESSMENT PROBLEM LIST: pain, decreased LE strength , gait instability, decreased endurance, decreased independence with ADLs , decreased safety awareness, impaired cognition, and medical complications BARRIERS TO LEARNING: Physical and Cognitive BARRIERS TO DISCHARGE: Confusion, Cognitive deficit, Limited safety awareness, Limited insight intodeficits, Decreased endurance, Lower extremity weakness, Medical complications, Stairs at home, andgait instability REHAB POTENTIAL/PROGNOSIS: good PLAN PT Discharge Recommendations this date: PT Recommendation/Plan: Group Home Facility (if pt refuses, pt will need 24 hour supervision at location of d/c) Treatment Plan/Interventions: Acute PT for the above documented limitations. PT Frequency during current admission: 3-5x/wk Equipment Recommendations: wheeled walker GOALS Multi-Disciplinary Problems (from Physical Therapy) Active Problems Problem: PT Misc Start Date: 11/10/22 Goal Start Date Expected End Date End Date Patient will perform bed mobility with independence. 11/10/22 12/05/22 -- Goal Start Date Expected End Date End Date Patient will perform functional transfers with SBA using w/w. 11/10/22 12/05/22 -- Goal Start Date Expected End Date End Date Patient will ambulate 125' with SBA using w/w. 11/10/22 12/05/22 -- Goal Start Date Expected End Date End Date Patient will perform LE HEP with SBA. 11/10/22 12/05/22 -- Goal Start Date Expected End Date End Date Patient will ascend/descend 2 steps with CG assist. 11/10/22 12/05/22 -- If this is the last note, please consider this the discharge summary. Nelly Hutton, PT 11/10/22 * Alla Goodman, JARAD - 11/10/2022 8:25 AM CDT Images from the original note were not included. Vascular Surgery Progress Note Sixto Chakraborty 1950 Hospital DAY#4 Days Post * Cannot find OR case *:* No surgery found * Subjective: Sixto Chakraborty is 72 y.o. Black Or female with PMHx of DM2 with peripheral neuropathy, HTN, GERD, dementia, and CKD who presented to the ED with right foot wound. She is treated for right great toe wound by podiatry at [facility] for the last three months. She underwent debridement in office 10/30 and started having worsening redness and swelling. Patient is reported to have dementia and is oriented 1-2 at baseline. She has been starting on antibiotics. We were requested toconsult to evaluate for PVD. ABIs were normal last year but this wound has been slow to heal. She takes Eliquis and statin. ABIs and digit pressures may be falsely elevated by calcification but the DP, PT and digit waveforms are excellent. Blood flow should be optimized for wound healing/amputation. MRI suggested osteomyelitis of the right great toe. She denies rest pain or claudication. OBJECTIVE: Temp: [36.4 ??C (97.5 ??F)-37.4 ??C (99.3 ??F)] 37.4 ??C (99.3 ??F) Pulse: [62-71] 62 BP: (141-176)/(46-79) 158/70 Resp: [18] 18 SpO2: [96 %-99 %] 96 % Wt Readings from Last 3 Encounters: 11/06/22 69.5 kg (153 lb 3.2 oz) 10/10/22 69.5 kg (153 lb 3.2 oz) 10/02/22 71.5 kg (157 lb 11.2 oz) No intake/output data recorded. No intake/output data recorded. Physical Exam HENT: Head: Normocephalic. Eyes: Extraocular Movements: Extraocular movements intact. Cardiovascular: Rate and Rhythm: Normal rate and regular rhythm. Pulses: Radial pulses are 2+ on the right side and 2+ on the left side. Femoral pulses are 2+ on the right side and 2+ on the left side. Dorsalis pedis pulses are 2+ on the right side and 2+ on the left side. Posterior tibial pulses are detected w/ Doppler on the right side and detected w/ Doppler on the left side. Comments: Trace edema BLE Pulmonary: Effort: Pulmonary effort is normal. Abdominal: Palpations: Abdomen is soft. Musculoskeletal: General: Normal range of motion. Cervical back: Normal range of motion. Comments: 5/5 strength BLE Skin: General: Skin is warm and dry. Comments: Ulcer to right great toe distal tip Neurological: Mental Status: She is alert. Comments: A&Ox 1-2, chronically reduced sensation in feet Labs: reviewed Recent Labs Lab Units 11/10/22 0657 11/09/22 1050 11/08/22 1116 WBC K/cumm 8.6 8.5 7.5 HEMOGLOBIN g/dL 8.4* 8.7* 8.9* HEMATOCRIT % 27.9* 28.5* 29.5* PLATELETS K/cumm 311 317 298 Recent Labs Lab Units 11/09/22 1050 11/08/22 1116 11/07/22 0533 SODIUM mmol/L 144 144 145 POTASSIUM PLASMA mmol/L 4.3 4.1 3.9 CHLORIDE mmol/L 111* 110 109 CO2 mmol/L 23 24 24 BUN SERUM mg/dL 28* 29* 37* CREATININE mg/dL 1.85* 1.91* 1.98* CALCIUM mg/dL 8.6 8.8 9.0 Imaging: Reviewed TEO and arterial duplex. Current Scheduled Medications: atorvastatin, 20 mg, oral, Daily benztropine, 1.5 mg, oral, Nightly carvediloL, 6.25 mg, oral, BID with meals (bkfst, dinner) cefepime, 2,000 mg, intravenous, Q24H SOL enoxaparin, 30 mg, subcutaneous, Daily-2100 famotidine, 10 mg, oral, Nightly insulin glargine, 0.25 Units/kg, subcutaneous, Nightly insulin lispro, 0-10 Units, subcutaneous, TID with meals insulin lispro, 0-5 Units, subcutaneous, Nightly insulin lispro, 0.083 Units/kg, subcutaneous, TID with meals losartan, 100 mg, oral, Daily metroNIDAZOLE, 500 mg, intravenous, Q8H SOL pregabalin, 150 mg, oral, Nightly risperiDONE, 2 mg, oral, Nightly Assessment and Plan: Principal Problem: Osteomyelitis of great toe of right foot ([facility]) ([facility]) Active Problems: Diabetic neuropathy ([facility]) Type 2 diabetes mellitus with diabetic neuropathy, with long-term current use of insulin ([facility]) ([facility]) Hypertension associated with diabetes ([facility]) Gastroesophageal reflux disease without esophagitis Hyperlipidemia associated with type 2 diabetes mellitus ([facility]) Schizoaffective disorder, bipolar type ([facility]) ([facility]) 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 2 diabetes mellitus ([facility]) ([facility]) Late onset Alzheimer's dementia without behavioral disturbance ([facility]) Anemia in stage 4 chronic kidney disease ([facility]) Abnormal urinalysis Sixto Chakraborty has a poorly healing right great toe ulcer. No signs of acute limb ischemia as DP are palpable and sensorimotor function has no gross abnormalities. She has chronic peripheral neuropathy. -She may have mild PVD but digit pressures and waveforms of DP, PT and digits suggest excellent flow for wound healing/amputation. No vascular surgical intervention indicated. -Continues on statin and Eliquis. Recommend starting aspirin for antiplatelet therapy. -Wound care per Podiatry -Abx per ID -She only needs to f/u with us PRN if wound healing stalls in the future. Thank you for allowing us to participate in the care of this patient. We will sign off. If you haveany questions, please don't hesitate to call. Alla Goodman NP Vascular Surgery [facility] Office: 11/10/2022 8:25 AM Cosigned by Alex Jurado MD at 11/11/2022 10:46 AM CDT * Gill Gamboa MD - 11/09/2022 5:11 PM CDT General Medicine Progress Note Interval Events: This is a 72-year-old female with history of dementia, depression, schizophrenia, type 2 diabetes, essential hypertension who came to the hospital with complaint of right foot wound. Initial imaging concerning for osteomyelitis. MRI confirmed osteomyelitis with distal right great toe wound with osteomyelitis of the distal phalanx. Subjective: Chief complaint: Right foot pain. Patient seen in room. Reports pain is controlled. Denies any nausea or vomiting. Objective: Vitals: 24hr Min/Max: Temp Min: 36.4 ??C (97.5 ??F) Max: 36.7 ??C (98.1 ??F) Pulse Min: 65 Max: 71 BP Min: 142/53 Max: 182/67 Resp Min: 18 Max: 19 SpO2 Min: 96 % Max: 99 % Most Recent: Vitals: 11/08/22 1927 11/08/22 2359 11/09/22 0746 11/09/22 1524 BP: (!) 182/67 153/54 142/53 165/79 BP Location: Left arm Left arm Left arm Left arm Patient Position: Lying Lying Reclining HOB 30 degrees Pulse: 66 71 66 65 Resp: 18 18 19 18 Temp: 36.7 ??C (98.1 ??F) 36.6 ??C (97.9 ??F) 36.6 ??C (97.9 ??F) 36.4 ??C (97.5 ??F) TempSrc: Oral Oral Oral Oral SpO2: 99% 96% 97% 99% Weight: Height: Intake/Output Summary (Last 24 hours) at 11/09/2022 1759 Last data filed at 11/08/2022 2210 Gross per 24 hour Intake -- Output 200 ml Net -200 ml Physical Exam: Physical Exam GEN: Alert. NAD HENT: Normocephalic. Atraumatic. CVS: RRR CHEST: Clear bilaterally ABD: soft. ND EXT: no edema Lab/Radiology/Diagnostic Review: Reviewed. Recent Results (from the past 24 hour(s)) POCT glucose Collection Time: 11/08/22 9:04 PM Result Value Ref Range Glucose, POC 154 70 - 199 mg/dL POCT glucose Collection Time: 11/09/22 2:04 AM Result Value Ref Range Glucose, POC 180 70 - 199 mg/dL POCT glucose Collection Time: 11/09/22 7:28 AM Result Value Ref Range Glucose, POC 153 70 - 199 mg/dL Magnesium Collection Time: 11/09/22 10:50 AM Result Value Ref Range Magnesium 1.9 1.4 - 2.5 mg/dL Basic metabolic panel Collection Time: 11/09/22 10:50 AM Result Value Ref Range Sodium 144 135 - 145 mmol/L Potassium, pl 4.3 3.3 - 4.9 mmol/L Chloride 111 (H) 97 - 110 mmol/L CO2 23 22 - 32 mmol/L Anion gap 10 2 - 15 mmol/L BUN 28 (H) 8 - 25 mg/dL Creatinine 1.85 (H) 0.60 - 1.10 mg/dL Glucose 183 70 - 199 mg/dL Calcium 8.6 8.5 - 10.3 mg/dL CBC with auto differential Collection Time: 11/09/22 10:50 AM Result Value Ref Range WBC 8.5 3.8 - 9.9 K/cumm Hgb 8.7 (L) 11.9 - 15.5 g/dL Hct 28.5 (L) 35.6 - 45.5 % Plt 317 150 - 400 K/cumm MPV 10.8 9.1 - 12.3 fL RBC 2.95 (L) 3.90 - 5.20 M/cumm MCV 96.6 (H) 81.3 - 96.4 fL MCH 29.5 27.1 - 33.3 pg MCHC 30.5 (L) 32.3 - 35.7 g/dL RDW CV 15.5 (H) 11.1 - 14.9 % RDW SD 55.2 (H) 35.7 - 48.1 fL NRBC abs 0.00 0.00 - 0.01 K/cumm Vancomycin level random Collection Time: 11/09/22 10:50 AM Result Value Ref Range Vancomycin random 12.0 mcg/mL Differential, auto Collection Time: 11/09/22 10:50 AM Result Value Ref Range Neutrophil abs 5.6 1.7 - 6.5 K/cumm Imm gran abs 0.0 0.0 - 0.1 K/cumm Lymphocyte abs 2.0 0.8 - 3.3 K/cumm Monocyte abs 0.6 0.2 - 0.8 K/cumm Eosinophil abs 0.3 0.0 - 0.5 K/cumm Basophil abs 0.1 0.0 - 0.1 K/cumm Neutrophil pct 65.8 % Imm gran pct 0.4 % Lymphocyte pct 23.2 % Monocyte pct 6.9 % Eosinophil pct 3.1 % Basophil pct 0.6 % eGFR Collection Time: 11/09/22 10:50 AM Result Value Ref Range eGFR 29 mL/min/1.73 m2 POCT glucose Collection Time: 11/09/22 12:33 PM Result Value Ref Range Glucose, POC 160 70 - 199 mg/dL POCT glucose Collection Time: 11/09/22 5:38 PM Result Value Ref Range Glucose, POC 266 (H) 70 - 199 mg/dL Assessment and Plan: Principal Problem: Osteomyelitis of great toe of right foot (CMS/HCC) (HCC) Active Problems: Diabetic neuropathy (HCC) Type 2 diabetes mellitus with diabetic neuropathy, with long-term current use of insulin (CMS/HCC) (HCC) Hypertension associated with diabetes (HCC) Gastroesophageal reflux disease without esophagitis Hyperlipidemia associated with type 2 diabetes mellitus (HCC) Schizoaffective disorder, bipolar type (CMS/HCC) (HCC) 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 2 diabetes mellitus (CMS/HCC) (HCC) Late onset Alzheimer's dementia without behavioral disturbance (HCC) Anemia in stage 4 chronic kidney disease (HCC) Abnormal urinalysis Right great toe osteomyelitis. Noted on MRI. Remains on broad-spectrum IV antibiotics including IV vancomycin/cefepime/Flagyl. Podiatry is following. Await formal and final antibiotics recommendation. Essential hypertension. Continue Coreg 6.25 mg b.i.d.. Hyperlipidemia. Continue Lipitor 20 mg daily. Type 2 diabetes. Continue Lantus 17 units q.h.s. and monitor Accu-Cheks q.a.c. q.h.s. adjust with alow-dose sliding scale as needed. DVT prophylaxis. Continue Lovenox. Disposition: Continue broad-spectrum IV antibiotics. Patient will likely need long-term IV antibiotics. PICC line when ready per Infectious Disease. My total encounter time on 11/09/2022 was 36 minutes which was spent in the activities documented inthe note. This includes time spent prior to the visit and after the visit in direct care of the patient. This time does not include time spent in any separately reportable services. Gill Gamboa MD Hospitalist [phone] 35:59 PM * Krishna Morgan MD - 11/09/2022 12:40 PM CDT Images from the original note were not included. Infectious Disease Sixto Chakraborty Admit Date: 11/06/2022 LOS: 3 Days Consulting Physician:Bev Adames MD Reason for consult:OM toe Interval Course Wound culture right toe wound pending New Symptoms Patient has no new symptoms ATBX Vanc/cefepime/Flagyl Data Vitals: 11/08/22 1507 11/08/22 1927 11/08/22 2359 11/09/22 0746 BP: 161/69 (!) 182/67 153/54 142/53 BP Location: Left arm Left arm Left arm Left arm Patient Position: Reclining Lying Lying Reclining Pulse: 64 66 71 66 Resp: 18 18 18 19 Temp: 36.6 ??C (97.9 ??F) 36.7 ??C (98.1 ??F) 36.6 ??C (97.9 ??F) 36.6 ??C (97.9 ??F) TempSrc: Oral Oral Oral Oral SpO2: 98% 99% 96% 97% Weight: Height: Temp (24hrs), Av.7 ??C (98 ??F), Min:36.6 ??C (97.9 ??F), Max:36.7 ??C (98.1 ??F) Recent Labs Lab Units 11/09/22 1050 11/08/22 1116 11/07/22 0533 WBC K/cumm 8.5 7.5 7.2 HEMOGLOBIN g/dL 8.7* 8.9* 8.2* HEMATOCRIT % 28.5* 29.5* 26.6* PLATELETS K/cumm 317 298 287 Recent Labs Lab Units 11/09/22 1050 11/08/22 1116 11/07/22 0533 BUN SERUM mg/dL 28* 29* 37* CREATININE mg/dL 1.85* 1.91* 1.98* Scheduled Meds:atorvastatin, 20 mg, oral, Daily benztropine, 1.5 mg, oral, Nightly carvediloL, 6.25 mg, oral, BID with meals (bkfst, dinner) cefepime, 2,000 mg, intravenous, Q24H SOL enoxaparin, 30 mg, subcutaneous, Daily-2100 famotidine, 10 mg, oral, Nightly insulin glargine, 0.25 Units/kg, subcutaneous, Nightly insulin lispro, 0-10 Units, subcutaneous, TID with meals insulin lispro, 0-5 Units, subcutaneous, Nightly insulin lispro, 0.083 Units/kg, subcutaneous, TID with meals losartan, 100 mg, oral, Daily metroNIDAZOLE, 500 mg, intravenous, Q8H SOL pregabalin, 150 mg, oral, Nightly risperiDONE, 2 mg, oral, Nightly vancomycin, 15 mg/kg, intravenous, Once Continuous Infusions: PRN Meds:. acetaminophen albuterol HFA aluminum-magnesium hydroxide-simethicone dextrose OR dextrose glucagon ondansetron oxyCODONE polyethylene glycol Review of Systems: Gen: denies fevers, denies chills, denies sweats, denies unintentional weight loss HEENT: Denies sore throat, denies thrush Neck: Denies palpable lymph nodes, denies neck stiffness Cv: denies chest pain, denies palpitations Resp: Denies SOB, Denies orthopnea Gi: Denies abdominal pain, Denies diarrhea, denies n/v Extrem: Denies gross deformities, denies joint pain, denies myalgias, positive right great toe wound Skin: Denies rashes, denies lesions Neuro: Denies weakness, denies paresthesias, denies memory loss Psych: denies depression, denies anxiety Objective: Vitals: 24hr Min/Max: Temp Min: 36.4 ??C (97.6 ??F) Max: 37.4 ??C (99.3 ??F) Pulse Min: 57 Max: 66 BP Min: 112/50 Max: 167/95 Resp Min: 17 Max: 19 SpO2 Min: 93 % Max: 100 % Physical Exam: General appearance: alert, cooperative, no distress HEENT: (-)icterus, Oropharnyx is normal, NCAT Neck: No palpable LN Lungs: breath sounds normal and symmetric; minimal respiratory effort, no r/w/c Heart: regular rhythm, normal S1 and S2, no m/r/g Abdomen: soft without mass, non-tender, +bowel sounds, no HSM Skin: (-)new rashes, no ulcerations MSK: no gross deformities, FROM Extremities : Positive Edema, pulses present bilaterally, positive erythema induration of the rightgreat toe crusted wound on the tip of the toe Neuro: No focal deficits Psych: Appropriate mood and affect Lab/Radiology/Diagnostic Review: 11/08 MRI right foot without IMPRESSION: 1. Distal right great toe wound with osteomyelitis of the distal phalanx and small erosions of the distal tuft. 11/06 x-ray right foot IMPRESSION: Findings/impression: Partial amputation of the 4th digit. No acute fracture. Atherosclerotic calcifications are demonstrated in the peripheral vasculature. Erosive changes are noted in the 1st digit distal tuft with associated irregularity of the soft tissue. Findings may represent cellulitis with associated osteomyelitis in the appropriate clinical setting 10/11 arterial Doppler lower extremity INTERPRETATION Right ankle-brachial index of 1.1 which is normal. Left ankle-brachial index of 1.1 which is normal. 11/06 blood culture no growth 11/06 urine culture clinically insignificant Assessment: Osteomyelitis right great toe with possible cellulitis CKD Type 2 diabetes with neuropathy Pyuria Hypertension Hyperlipidemia Dementia Plan: Continue on the vanc cefepime and Flagyl Patient need long-term IV antibiotic Follow-up blood cultures, no growth to date Follow wound culture pending Podiatry has been consulted, no intervention planned Arterial Doppler lower extremity negative MRI right foot with osteo Patient instructed to elevate lower extremity Supportive care * Agus Malloy [facility] - 11/09/2022 11:54 AM CDT Pharmacokinetic Consult - Vancomycin Dosing Sixto Chakraborty is a 72 y.o. female who has been consulted for vancomycin dosing for osteomyelitis. Relevant clinical data and objective history reviewed: Creatinine Date Value Ref Range Status 11/09/2022 1.85 (H) 0.60 - 1.10 mg/dL Final 11/08/2022 1.91 (H) 0.60 - 1.10 mg/dL Final 11/07/2022 1.98 (H) 0.60 - 1.10 mg/dL Final BUN Date Value Ref Range Status 11/09/2022 28 (H) 8 - 25 mg/dL Final 11/08/2022 29 (H) 8 - 25 mg/dL Final 11/07/2022 37 (H) 8 - 25 mg/dL Final Estimated Creatinine Clearance: 21.7 mL/min (A) (by C-G 65 yr and older- minimum SCr 0.8 based on SCr of 1.85 mg/dL (H)). I/O last 3 completed shifts: In: - Out: 200 [Urine:200] Lab Results Component Value Date/Time WBC 8.5 11/09/2022 10:50 AM HGB 8.7 (L) 11/09/2022 10:50 AM HCT 28.5 (L) 11/09/2022 10:50 AM MCV 96.6 (H) 11/09/2022 10:50 AM LABPLAT 317 11/09/2022 10:50 AM Temp Readings from Last 3 Encounters: 11/09/22 36.6 ??C (97.9 ??F) (Oral) 10/27/22 36.3 ??C (97.3 ??F) (Temporal) 10/13/22 36.3 ??C (97.3 ??F) (Temporal) Patient Weight 11/06/22 69.5 kg (153 lb 3.2 oz) Baseline culture/source/susceptibility: Lab Results Component Value Date DIRECTEXAM 11/08/2022 Stain: No polymorphonuclear leukocytes seen. Rare Gram Positive Bacilli DIRECTEXAM 10/03/2022 Stain: No polymorphonuclear leukocytes seen. No organisms seen. DIRECTEXAM 10/02/2022 Molecular Analysis: Streptococcus species detected by the [facility] Blood Culture Nucleic Acid Test. This test does not exclude the possibility of a mixed bacterial infection. Notification of: Streptococcus species called to and read back by: Zoran Baca RN [phone] on 10/03/2022 14:12:18 by: Marta Simeon ME DIRECTEXAM 10/02/2022 Stain: Gram Positive Cocci in pairs and chains Time to culture positivity (anaerobic media): 11.1 hours Time to culture positivity (aerobic media): 11 hours Notification of: Gram Positive Cocci in pairs and chains called to and read back by: Nelia Crouch [phone] on 10/03/2022 08:51:39 by: Maddie Barrera S MICROBIOLOGY Preliminary Report: Culture results pending. (.) 11/08/2022 MICROBIOLOGY Preliminary Report: No growth to date. 11/06/2022 MICROBIOLOGY Preliminary Report: No growth to date. 11/06/2022 ORGANISM (CLINICALLY INSIGNIFICANT GROWTH 11/06/2022 ORGANISM STREPTOCOCCUS MITIS GROUP 10/02/2022 ORGANISM STREPTOCOCCUS MITIS GROUP 10/02/2022 ORGANISM STREPTOCOCCUS MITIS GROUP 10/02/2022 Assessment/Plan The patient has been receiving vancomycin random dosing. Vancomycin random level returned as 12 on 11/09/22 at 1050. Patient DID received a dose of 1g @ 1800 on 11/07 even though it is not charted, have been trying toget documentation updated.. Interval/Dose adjustment will be made. Will give dose of 1000 mg IV once now. Next vancomycin random level ordered to be drawn 11/10 at 0500. Pharmacy will continue to follow the patient???s culture results and clinical progress daily. Day 4 of therapy Agus Malloy RPh * Larry Dennis MD - 11/08/2022 9:54 PM CDT Images from the original note were not included. HOSPITALIST PROGRESS NOTE PCP: Duane Corcoran [phone] Admit Date: 11/06/2022 10:11 AM LOS: 2 CHIEF COMPLAINT / ADMITTING HPI Presents emergency department on November 06, 2022 with a wound to the right foot, redness, swelling of the right great toe. 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 She is post debridement October 30, 2022 by wound care. Endorses worsening redness and swelling since the procedure. Not currently on antibiotics. Patient has a historyof dementia, documented A/O x 1-2 at baseline, history is limited to the EMR with some information provided by the patient. Labs significant for stable CKD, stable anemia. Urine with 11-20 wbc's, 2+ LE, negative nitrite. CT head no acute intracranial pathology. X-ray of the right great toe concerning for cellulitis with associated osteomyelitis. Vancomycin, Flagyl, cefepime initiated. INTERVAL HISTORY 11/07/2022: Patient in bed pleasant, seen by Podiatry appreciate consult. X-ray reviewed, vascular surgery were consulted as per Podiatry recommendation. No plans for surgery today. Podiatry signing off. Patient states she does not want any amputation. 11/08/2022: Seen in bed eating breakfast, seen by vascular surgery appreciate consult. Seen by Infectious Disease, MRI toe shows osteomyelitis distal phalanx Continue antibiotics as per Infectious Disease. Blood cultures no growth to date. REVIEW OF SYSTEMS No chest pain or shortness of breath no nausea vomiting DATA Vitals: 11/07/22 2315 11/08/22 0759 11/08/22 1507 11/08/22 1927 BP: 149/55 142/58 161/69 (!) 182/67 BP Location: Left arm Left arm Left arm Patient Position: Lying HOB 30 degrees Reclining Lying Pulse: 68 70 64 66 Resp: 18 19 18 18 Temp: 36.5 ??C (97.7 ??F) 36.5 ??C (97.7 ??F) 36.6 ??C (97.9 ??F) 36.7 ??C (98.1 ??F) TempSrc: Oral Oral Oral Oral SpO2: 96% 97% 98% 99% Weight: Height: No intake or output data in the 24 hours ending 11/08/22 9576 CURRENT LAB RESULTS Laboratory results have been reviewed by me: Recent Results (from the past 12 hour(s)) Magnesium Collection Time: 11/08/22 11:16 AM Result Value Ref Range Magnesium 2.0 1.4 - 2.5 mg/dL Basic metabolic panel Collection Time: 11/08/22 11:16 AM Result Value Ref Range Sodium 144 135 - 145 mmol/L Potassium, pl 4.1 3.3 - 4.9 mmol/L Chloride 110 97 - 110 mmol/L CO2 24 22 - 32 mmol/L Anion gap 10 2 - 15 mmol/L BUN 29 (H) 8 - 25 mg/dL Creatinine 1.91 (H) 0.60 - 1.10 mg/dL Glucose 222 (H) 70 - 199 mg/dL Calcium 8.8 8.5 - 10.3 mg/dL CBC with auto differential Collection Time: 11/08/22 11:16 AM Result Value Ref Range WBC 7.5 3.8 - 9.9 K/cumm Hgb 8.9 (L) 11.9 - 15.5 g/dL Hct 29.5 (L) 35.6 - 45.5 % Plt 298 150 - 400 K/cumm MPV 10.8 9.1 - 12.3 fL RBC 2.98 (L) 3.90 - 5.20 M/cumm MCV 99.0 (H) 81.3 - 96.4 fL MCH 29.9 27.1 - 33.3 pg MCHC 30.2 (L) 32.3 - 35.7 g/dL RDW CV 15.9 (H) 11.1 - 14.9 % RDW SD 57.4 (H) 35.7 - 48.1 fL NRBC abs 0.00 0.00 - 0.01 K/cumm Differential, auto Collection Time: 11/08/22 11:16 AM Result Value Ref Range Neutrophil abs 4.9 1.7 - 6.5 K/cumm Imm gran abs 0.0 0.0 - 0.1 K/cumm Lymphocyte abs 1.9 0.8 - 3.3 K/cumm Monocyte abs 0.6 0.2 - 0.8 K/cumm Eosinophil abs 0.2 0.0 - 0.5 K/cumm Basophil abs 0.0 0.0 - 0.1 K/cumm Neutrophil pct 64.6 % Imm gran pct 0.3 % Lymphocyte pct 24.9 % Monocyte pct 7.4 % Eosinophil pct 2.4 % Basophil pct 0.4 % eGFR Collection Time: 11/08/22 11:16 AM Result Value Ref Range eGFR 28 mL/min/1.73 m2 POCT glucose Collection Time: 11/08/22 12:11 PM Result Value Ref Range Glucose, POC 223 (H) 70 - 199 mg/dL POCT glucose Collection Time: 11/08/22 5:41 PM Result Value Ref Range Glucose, POC 191 70 - 199 mg/dL POCT glucose Collection Time: 11/08/22 9:04 PM Result Value Ref Range Glucose, POC 154 70 - 199 mg/dL LAB TREND CBC: Lab Results Component Value Date WBC 7.5 11/08/2022 WBC 7.2 11/07/2022 WBC 9.6 11/06/2022 HGB 8.9 (L) 11/08/2022 HGB 8.2 (L) 11/07/2022 HGB 9.0 (L) 11/06/2022 HCT 29.5 (L) 11/08/2022 HCT 26.6 (L) 11/07/2022 HCT 28.3 (L) 11/06/2022 BMP: Lab Results Component Value Date SODIUM 144 11/08/2022 SODIUM 145 11/07/2022 SODIUM 144 11/06/2022 POTASSIUM 4.1 11/08/2022 POTASSIUM 3.9 11/07/2022 POTASSIUM 4.0 11/06/2022 CHLORIDE 110 11/08/2022 CREATININE 1.91 (H) 11/08/2022 CREATININE 1.98 (H) 11/07/2022 CREATININE 2.00 (H) 11/06/2022 CALCIUM 8.8 11/08/2022 CALCIUM 9.0 11/07/2022 CALCIUM 9.2 11/06/2022 No results found for: BNP Lab Results Component Value Date ALKPHOS 109 11/06/2022 Lab Results Component Value Date MAGNESIUM 2.0 11/08/2022 MAGNESIUM 2.0 11/07/2022 Lab Results Component Value Date AST 18 11/06/2022 Lab Results Component Value Date ALT 11 11/06/2022 No results found for: PHOS RADIOLOGY Imaging results have been reviewed by me: MRI Foot Right WO Contrast Final Result 1. Distal right great toe wound with osteomyelitis of the distal phalanx and small erosions of the distal tuft. Dictated by: Radha Bell M.D. The radiology attending physician has personally reviewed this study, and had reviewed and/or edited this written report and agrees with it. Electronically signed by: Weston Kasper MD, PHD US TEO Final Result RIGHT LEG:Patent right lower extremity vasculature with multiphasic waveforms. The TEO is 1.06 and TBI is 1.35. LEFT LEG:Normal TEO at rest 1.02 and TBI 1.02 . Electronically signed by: Mir Zavaleta M.D. US Arterial Duplex Lower Extremity Right Limited Final Result RIGHT LEG:Patent right lower extremity vasculature with multiphasic waveforms. The TEO is 1.06 and TBI is 1.35. LEFT LEG:Normal TEO at rest 1.02 and TBI 1.02 . Electronically signed by: Mir Zavaleta M.D. CT Head WO Contrast Final Result No acute intracranial pathology. Electronically signed by: Brionna Randhawa M.D. XR Toe Great Right Minimum 2 Views Final Result Findings/impression: Partial amputation of the 4th digit. No acute fracture. Atherosclerotic calcifications are demonstrated in the peripheral vasculature. Erosive changes are noted in the 1st digit distal tuft with associated irregularity of the soft tissue. Findings may represent cellulitis with associated osteomyelitis in the appropriate clinical setting Electronically signed by: Phil Pete II, D.O. PROCEDURES MEDICATIONS FOR CURRENT ENCOUNTER Scheduled Meds: atorvastatin, 20 mg, oral, Daily benztropine, 1.5 mg, oral, Nightly carvediloL, 6.25 mg, oral, BID with meals (bkfst, dinner) cefepime, 2,000 mg, intravenous, Q24H SOL enoxaparin, 30 mg, subcutaneous, Daily-2100 famotidine, 10 mg, oral, Nightly insulin glargine, 0.25 Units/kg, subcutaneous, Nightly insulin lispro, 0-10 Units, subcutaneous, TID with meals insulin lispro, 0-5 Units, subcutaneous, Nightly insulin lispro, 0.083 Units/kg, subcutaneous, TID with meals [START ON 11/09/2022] losartan, 100 mg, oral, Daily metroNIDAZOLE, 500 mg, intravenous, Q8H SOL pregabalin, 150 mg, oral, Nightly risperiDONE, 2 mg, oral, Nightly Continuous Infusions: PRN Meds:. acetaminophen, 650 mg albuterol HFA, 2 puff aluminum-magnesium hydroxide-simethicone, 30 mL dextrose, 15 g OR dextrose, 250 mL glucagon, 1 mg ondansetron, 4 mg oxyCODONE, 5 mg polyethylene glycol, 17 g Diet: Dietary Orders (From admission, onward) Start Ordered 11/07/22 2100 Bedtime snack At bedtime Comments: If bedtime BG is less than 100mg/dl, give patient a 15 gram carbohydrate snack. 11/07/22 0127 11/07/22 1049 Adult Diet Restricted; Consistent Carb 2000 chanelle Diet effective now Question Answer Comment (CH) Diet type Restricted Diabetic: Consistent Carb 2000 chanelle 11/07/22 1049 EXAM Vitals: 11/08/22 1927 BP: (!) 182/67 Pulse: 66 Resp: 18 Temp: 36.7 ??C (98.1 ??F) SpO2: 99% General appearance: appears stated age, cooperative, and no distress Head: Normocephalic, without obvious abnormality, atraumatic Lungs: clear to auscultation bilaterally Heart: S1, S2 normal Abdomen: soft, non-tender; bowel sounds normal; no masses, no organomegaly Extremities: No edema see toe pictures below ASSESSMENT AND PLAN All Diagnosis Present on Admission Unless Otherwise Stated: Right great toe osteomyelitis wound. Patient refuses amputation seen by Podiatry recommend vascularABI they have signed off. Appreciate Infectious Disease input concerning long-term antibiotics. Weight-bearing as tolerated per Podiatry. Wound care. For now continue vancomycin cefepime Flagyl as per Infectious Disease. MRI shows osteomyelitis distal phalanx. Diabetes mellitus continue Lantus insulin sliding scale insulin monitor fingerstick blood sugars, needs tight blood sugar control. Abnormal urinalysis follow. Culture insignificant growth Essential hypertension continue losartan monitor blood pressure closely Hyperlipidemia continue statin Bipolar disorder schizoaffective continue home medications Chronic kidney disease stage 4 monitor renal function avoid nephrotoxic agents and hypotension Alzheimer's dementia stable. DVT prophylaxis Lovenox Medical Decision Making Complexity: Moderate Consulting physicians: Treatment Team: Consulting Physician: Rene Leroy DPM; Consulting Physician: En Chaudhary MD; Consulting Physician: Portillo Marin DPM; Consulting Physician: Alex Jurado MD Disposition: Pending Code status: Full Code Voice recognition software [employer] Direct was used dictate and transcribe this document. Engraver Signature variances may occur. Despite proofreading, typographical errors may occur. Larry Dennis MD. HOSPITALIST 11/08/2022 9:54 PM * Krishna Morgan MD - 11/08/2022 1:17 PM CDT Images from the original note were not included. Infectious Disease Sixto Chakraborty Admit Date: 11/06/2022 LOS: 2 Days Consulting Physician:Bev Adames MD Reason for consult:OM toe Interval Course Overall patient has improved since my last note. New Symptoms Patient has no new symptoms noted to have a stress with drainage of the right toe ATBX Vanc/cefepime/Flagyl Data Vitals: 11/07/22 0731 11/07/22 1950 11/07/22 2315 11/08/22 0759 BP: 122/75 165/69 149/55 142/58 BP Location: Right arm Left arm Left arm Patient Position: Lying Lying Lying HOB 30 degrees Pulse: 66 72 68 70 Resp: Temp: 36.5 ??C (97.7 ??F) 36.6 ??C (97.9 ??F) 36.5 ??C (97.7 ??F) 36.5 ??C (97.7 ??F) TempSrc: Oral Oral Oral Oral SpO2: 96% 97% 96% 97% Weight: Height: Temp (24hrs), Av.6 ??C (97.8 ??F), Min:36.5 ??C (97.7 ??F), Max:36.6 ??C (97.9 ??F) Recent Labs Lab Units 11/08/22 11111/07/22 0533 11/06/22 1335 WBC K/cumm 7.5 7.2 9.6 HEMOGLOBIN g/dL 8.9* 8.2* 9.0* HEMATOCRIT % 29.5* 26.6* 28.3* PLATELETS K/cumm 298 287 295 Recent Labs Lab Units 11/08/22111511/07/22 0511/06/22 1334 BUN SERUM mg/dL 29* 37* 39* CREATININE mg/dL 1.91* 1.98* 2.00* Scheduled Meds:atorvastatin, 20 mg, oral, Daily benztropine, 1.5 mg, oral, Nightly carvediloL, 6.25 mg, oral, BID with meals (bkfst, dinner) cefepime, 2,000 mg, intravenous, Q24H SOL enoxaparin, 30 mg, subcutaneous, Daily-2100 famotidine, 10 mg, oral, Nightly insulin glargine, 0.25 Units/kg, subcutaneous, Nightly insulin lispro, 0-10 Units, subcutaneous, TID with meals insulin lispro, 0-5 Units, subcutaneous, Nightly insulin lispro, 0.083 Units/kg, subcutaneous, TID with meals losartan, 50 mg, oral, Daily metroNIDAZOLE, 500 mg, intravenous, Q8H SOL pregabalin, 150 mg, oral, Nightly risperiDONE, 2 mg, oral, Nightly vancomycin, 15 mg/kg, intravenous, Once Continuous Infusions: PRN Meds:. acetaminophen albuterol HFA aluminum-magnesium hydroxide-simethicone dextrose OR dextrose glucagon ondansetron oxyCODONE polyethylene glycol Review of Systems: Gen: denies fevers, denies chills, denies sweats, denies unintentional weight loss HEENT: Denies sore throat, denies thrush Neck: Denies palpable lymph nodes, denies neck stiffness Cv: denies chest pain, denies palpitations Resp: Denies SOB, Denies orthopnea Gi: Denies abdominal pain, Denies diarrhea, denies n/v Extrem: Denies gross deformities, denies joint pain, denies myalgias, positive right great toe wound Skin: Denies rashes, denies lesions Neuro: Denies weakness, denies paresthesias, denies memory loss Psych: denies depression, denies anxiety Objective: Vitals: 24hr Min/Max: Temp Min: 36.4 ??C (97.6 ??F) Max: 37.4 ??C (99.3 ??F) Pulse Min: 57 Max: 66 BP Min: 112/50 Max: 167/95 Resp Min: 17 Max: 19 SpO2 Min: 93 % Max: 100 % Physical Exam: General appearance: alert, cooperative, no distress HEENT: (-)icterus, Oropharnyx is normal, NCAT Neck: No palpable LN Lungs: breath sounds normal and symmetric; minimal respiratory effort, no r/w/c Heart: regular rhythm, normal S1 and S2, no m/r/g Abdomen: soft without mass, non-tender, +bowel sounds, no HSM Skin: (-)new rashes, no ulcerations MSK: no gross deformities, FROM Extremities : Positive Edema, pulses present bilaterally, positive erythema induration of the rightgreat toe crusted wound on the tip of the toe Neuro: No focal deficits Psych: Appropriate mood and affect Lab/Radiology/Diagnostic Review: . 11/06 x-ray right foot IMPRESSION: Findings/impression: Partial amputation of the 4th digit. No acute fracture. Atherosclerotic calcifications are demonstrated in the peripheral vasculature. Erosive changes are noted in the 1st digit distal tuft with associated irregularity of the soft tissue. Findings may represent cellulitis with associated osteomyelitis in the appropriate clinical setting 10/11 arterial Doppler lower extremity INTERPRETATION Right ankle-brachial index of 1.1 which is normal. Left ankle-brachial index of 1.1 which is normal. 11/06 blood culture no growth 11/06 urine culture clinically insignificant Assessment: Osteomyelitis right great toe with possible cellulitis CKD Type 2 diabetes with neuropathy Pyuria Hypertension Hyperlipidemia Dementia Plan: Continue on the vanc cefepime and Flagyl Follow-up urine and blood cultures, no growth to Podiatry has been consulted, no intervention planned Arterial Doppler lower extremity pending Wound cultures MRI right foot pending Patient instructed to elevate lower extremity Supportive care * Rajendra Melendez, [facility] - 11/07/2022 5:44 PM CDT Pharmacokinetic Consult - Vancomycin Dosing Sixto Chakraborty is a 72 y.o. female who has been consulted for vancomycin dosing for osteomyelitis. Relevant clinical data and objective history reviewed: Creatinine Date Value Ref Range Status 11/07/2022 1.98 (H) 0.60 - 1.10 mg/dL Final 11/06/2022 2.00 (H) 0.60 - 1.10 mg/dL Final 10/27/2022 2.10 (H) 0.60 - 1.10 mg/dL Final BUN Date Value Ref Range Status 11/07/2022 37 (H) 8 - 25 mg/dL Final 11/06/2022 39 (H) 8 - 25 mg/dL Final 10/27/2022 31 (H) 8 - 25 mg/dL Final Estimated Creatinine Clearance: 20.3 mL/min (A) (by C-G 65 yr and older- minimum SCr 0.8 based on SCr of 1.98 mg/dL (H)). No intake/output data recorded. Lab Results Component Value Date/Time WBC 7.2 11/07/2022 05:33 AM HGB 8.2 (L) 11/07/2022 05:33 AM HCT 26.6 (L) 11/07/2022 05:33 AM MCV 97.4 (H) 11/07/2022 05:33 AM LABPLAT 287 11/07/2022 05:33 AM Temp Readings from Last 3 Encounters: 11/07/22 36.5 ??C (97.7 ??F) (Oral) 10/27/22 36.3 ??C (97.3 ??F) (Temporal) 10/13/22 36.3 ??C (97.3 ??F) (Temporal) Patient Weight 11/06/22 69.5 kg (153 lb 3.2 oz) Lab Results Component Value Date DIRECTEXAM 10/03/2022 Stain: No polymorphonuclear leukocytes seen. No organisms seen. DIRECTEXAM 10/02/2022 Molecular Analysis: Streptococcus species detected by the [facility] Blood Culture Nucleic Acid Test. This test does not exclude the possibility of a mixed bacterial infection. Notification of: Streptococcus species called to and read back by: Zoran Baca RN [phone] on 10/03/2022 14:12:18 by: Marta Simeon ME DIRECTEXAM 10/02/2022 Stain: Gram Positive Cocci in pairs and chains Time to culture positivity (anaerobic media): 11.1 hours Time to culture positivity (aerobic media): 11 hours Notification of: Gram Positive Cocci in pairs and chains called to and read back by: Nelia Crouch [phone] on 10/03/2022 08:51:39 by: Maddie Barrera S MICROBIOLOGY Preliminary Report: No growth to date. 11/06/2022 MICROBIOLOGY Preliminary Report: No growth to date. 11/06/2022 MICROBIOLOGY Final Report: No growth 10/03/2022 MICROBIOLOGY Final Report: No growth 10/03/2022 MICROBIOLOGY Final Report: No growth 10/03/2022 ORGANISM STREPTOCOCCUS MITIS GROUP 10/02/2022 ORGANISM STREPTOCOCCUS MITIS GROUP 10/02/2022 ORGANISM STREPTOCOCCUS MITIS GROUP 10/02/2022 Assessment/Plan The patient has been receiving vancomycin 1750 mg once. Vancomycin random level returned as 15.7 on11/07/22 at 1635. Interval/Dose adjustment will be made. Will change dose to 1000 mg IV once. Next vancomycin random level ordered to be drawn 11/09/22 at 0600. Pharmacy will continue to follow the patient???s culture results and clinical progress daily. Day 2 of therapy Rajendra Melendez RPh * Larry Dennis MD - 11/07/2022 11:27 AM CDT Images from the original note were not included. HOSPITALIST PROGRESS NOTE PCP: Duane Corcoran [phone] Admit Date: 11/06/2022 10:11 AM LOS: 1 CHIEF COMPLAINT / ADMITTING HPI Presents emergency department on November 06, 2022 with a wound to the right foot, redness, swelling of the right great toe. 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 She is post debridement October 30, 2022 by wound care. Endorses worsening redness and swelling since the procedure. Not currently on antibiotics. Patient has a historyof dementia, documented A/O x 1-2 at baseline, history is limited to the EMR with some information provided by the patient. Labs significant for stable CKD, stable anemia. Urine with 11-20 wbc's, 2+ LE, negative nitrite. CT head no acute intracranial pathology. X-ray of the right great toe concerning for cellulitis with associated osteomyelitis. Vancomycin, Flagyl, cefepime initiated. INTERVAL HISTORY 11/07/2022: Patient in bed pleasant, seen by Podiatry appreciate consult. X-ray reviewed, vascular surgery were consulted as per Podiatry recommendation. No plans for surgery today. Podiatry signing off. Patient states she does not want any amputation. REVIEW OF SYSTEMS No chest pain or shortness of breath no nausea vomiting DATA Vitals: 11/06/227 11/06/22 2043 11/07/22 0027 11/07/22 0731 BP: 130/53 128/50 122/75 BP Location: Left arm Right arm Right arm Patient Position: Lying;HOB 30 degrees Lying;HOB 30 degrees Lying Pulse: 66 63 66 Resp: Temp: 36.6 ??C (97.9 ??F) 36.4 ??C (97.6 ??F) 36.5 ??C (97.7 ??F) TempSrc: Oral Axillary Oral SpO2: 96% 93% 96% Weight: 69.5 kg (153 lb 3.2 oz) Height: No intake or output data in the 24 hours ending 11/07/22 1127 CURRENT LAB RESULTS Laboratory results have been reviewed by me: Recent Results (from the past 12 hour(s)) POCT glucose Collection Time: 11/07/22 3:04 AM Result Value Ref Range Glucose, POC 213 (H) 70 - 199 mg/dL Magnesium Collection Time: 11/07/22 5:33 AM Result Value Ref Range Magnesium 2.0 1.4 - 2.5 mg/dL Basic metabolic panel Collection Time: 11/07/22 5:33 AM Result Value Ref Range Sodium 145 135 - 145 mmol/L Potassium, pl 3.9 3.3 - 4.9 mmol/L Chloride 109 97 - 110 mmol/L CO2 24 22 - 32 mmol/L Anion gap 12 2 - 15 mmol/L BUN 37 (H) 8 - 25 mg/dL Creatinine 1.98 (H) 0.60 - 1.10 mg/dL Glucose 217 (H) 70 - 199 mg/dL Calcium 9.0 8.5 - 10.3 mg/dL CBC with auto differential Collection Time: 11/07/22 5:33 AM Result Value Ref Range WBC 7.2 3.8 - 9.9 K/cumm Hgb 8.2 (L) 11.9 - 15.5 g/dL Hct 26.6 (L) 35.6 - 45.5 % Plt 287 150 - 400 K/cumm MPV 10.8 9.1 - 12.3 fL RBC 2.73 (L) 3.90 - 5.20 M/cumm MCV 97.4 (H) 81.3 - 96.4 fL MCH 30.0 27.1 - 33.3 pg MCHC 30.8 (L) 32.3 - 35.7 g/dL RDW CV 16.1 (H) 11.1 - 14.9 % RDW SD 57.6 (H) 35.7 - 48.1 fL NRBC abs 0.00 0.00 - 0.01 K/cumm Differential, auto Collection Time: 11/07/22 5:33 AM Result Value Ref Range Neutrophil abs 5.0 1.7 - 6.5 K/cumm Imm gran abs 0.0 0.0 - 0.1 K/cumm Lymphocyte abs 1.4 0.8 - 3.3 K/cumm Monocyte abs 0.6 0.2 - 0.8 K/cumm Eosinophil abs 0.2 0.0 - 0.5 K/cumm Basophil abs 0.0 0.0 - 0.1 K/cumm Neutrophil pct 68.6 % Imm gran pct 0.3 % Lymphocyte pct 19.8 % Monocyte pct 7.7 % Eosinophil pct 3.2 % Basophil pct 0.4 % eGFR Collection Time: 11/07/22 5:33 AM Result Value Ref Range eGFR 26 mL/min/1.73 m2 POCT glucose Collection Time: 11/07/22 7:49 AM Result Value Ref Range Glucose, POC 164 70 - 199 mg/dL LAB TREND CBC: Lab Results Component Value Date WBC 7.2 11/07/2022 WBC 9.6 11/06/2022 HGB 8.2 (L) 11/07/2022 HGB 9.0 (L) 11/06/2022 HCT 26.6 (L) 11/07/2022 HCT 28.3 (L) 11/06/2022 BMP: Lab Results Component Value Date SODIUM 145 11/07/2022 SODIUM 144 11/06/2022 POTASSIUM 3.9 11/07/2022 POTASSIUM 4.0 11/06/2022 CHLORIDE 109 11/07/2022 CREATININE 1.98 (H) 11/07/2022 CREATININE 2.00 (H) 11/06/2022 CALCIUM 9.0 11/07/2022 CALCIUM 9.2 11/06/2022 No results found for: BNP Lab Results Component Value Date ALKPHOS 109 11/06/2022 Lab Results Component Value Date MAGNESIUM 2.0 11/07/2022 Lab Results Component Value Date AST 18 11/06/2022 Lab Results Component Value Date ALT 11 11/06/2022 No results found for: PHOS RADIOLOGY Imaging results have been reviewed by me: CT Head WO Contrast Final Result No acute intracranial pathology. Electronically signed by: Brionna Randhawa M.D. XR Toe Great Right Minimum 2 Views Final Result Findings/impression: Partial amputation of the 4th digit. No acute fracture. Atherosclerotic calcifications are demonstrated in the peripheral vasculature. Erosive changes are noted in the 1st digit distal tuft with associated irregularity of the soft tissue. Findings may represent cellulitis with associated osteomyelitis in the appropriate clinical setting Electronically signed by: Phil Pete II, D.O. US TEO (Results Pending) PROCEDURES MEDICATIONS FOR CURRENT ENCOUNTER Scheduled Meds: atorvastatin, 20 mg, oral, Daily benztropine, 1.5 mg, oral, Nightly carvediloL, 6.25 mg, oral, BID with meals (bkfst, dinner) cefepime, 2,000 mg, intravenous, Q24H SOL famotidine, 10 mg, oral, Nightly insulin lispro, 0-10 Units, subcutaneous, Q4H SOL losartan, 50 mg, oral, Daily metroNIDAZOLE, 500 mg, intravenous, Q8H SOL pregabalin, 150 mg, oral, Nightly risperiDONE, 2 mg, oral, Nightly Continuous Infusions: PRN Meds:. acetaminophen, 650 mg albuterol HFA, 2 puff dextrose, 15 g OR dextrose, 250 mL glucagon, 1 mg ondansetron, 4 mg polyethylene glycol, 17 g Diet: Dietary Orders (From admission, onward) Start Ordered 11/07/22 2100 Bedtime snack At bedtime Comments: If bedtime BG is less than 100mg/dl, give patient a 15 gram carbohydrate snack. 11/07/22 0127 11/07/22 1049 Adult Diet Restricted; Consistent Carb 2000 chanelle Diet effective now Question Answer Comment (CH) Diet type Restricted Diabetic: Consistent Carb 2000 chanelle 11/07/22 1049 EXAM Vitals: 11/07/22 0731 BP: 122/75 Pulse: 66 Resp: 19 Temp: 36.5 ??C (97.7 ??F) SpO2: 96% General appearance: appears stated age, cooperative, and no distress Head: Normocephalic, without obvious abnormality, atraumatic Lungs: clear to auscultation bilaterally Heart: S1, S2 normal Abdomen: soft, non-tender; bowel sounds normal; no masses, no organomegaly Extremities: No edema see toe pictures below ASSESSMENT AND PLAN All Diagnosis Present on Admission Unless Otherwise Stated: Right great toe osteomyelitis wound. Patient refuses amputation seen by Podiatry recommend vascularABI they have signed off. Will get Infectious Disease input concerning long-term antibiotics. Weight-bearing as tolerated per Podiatry. Wound care. For now continue vancomycin cefepime Flagyl Diabetes mellitus needs tight blood sugar control. Abnormal urinalysis follow. Patient already on antibiotics Essential hypertension continue losartan monitor blood pressure closely Hyperlipidemia continue statin Bipolar disorder schizoaffective continue home medications Chronic kidney disease stage 4 monitor renal function avoid nephrotoxic agents and hypotension Alzheimer's dementia stable. DVT prophylaxis Lovenox Medical Decision Making Complexity: High Consulting physicians: Treatment Team: Consulting Physician: Rene Leroy DPM; Consulting Physician: En Chaudhary MD; Consulting Physician: Portillo Marin DPM Disposition: Pending Code status: Full Code Voice recognition software MModal Fluency Direct was used dictate and transcribe this document. Engraver Signature variances may occur. Despite proofreading, typographical errors may occur. Larry Dennis MD. HOSPITALIST 11/07/2022 11:27 AM * Gunner Pathak, [facility] - 11/06/2022 4:28 PM CDT Pharmacokinetic Consult - Vancomycin Dosing Sixto Chakraborty is a 72 y.o. female who has been consulted for vancomycin dosing for bone/joint infection . Relevant clinical data and objective history reviewed: Creatinine Date Value Ref Range Status 11/06/2022 2.00 (H) 0.60 - 1.10 mg/dL Final 10/27/2022 2.10 (H) 0.60 - 1.10 mg/dL Final 10/10/2022 1.80 (H) 0.60 - 1.10 mg/dL Final Comment: Testing performed by: [facility], [address] [place] [address]., [id number] BUN Date Value Ref Range Status 11/06/2022 39 (H) 8 - 25 mg/dL Final 10/27/2022 31 (H) 8 - 25 mg/dL Final 10/10/2022 30 (H) 8 - 25 mg/dL Final Comment: Testing performed by: [address] [address] Estimated Creatinine Clearance: 20.1 mL/min (A) (by C-G 65 yr and older- minimum SCr 0.8 based on SCr of 2 mg/dL (H)). No intake/output data recorded. Lab Results Component Value Date/Time WBC 9.6 11/06/2022 01:35 PM HGB 9.0 (L) 11/06/2022 01:35 PM HCT 28.3 (L) 11/06/2022 01:35 PM MCV 96.9 (H) 11/06/2022 01:35 PM LABPLAT 295 11/06/2022 01:35 PM Temp Readings from Last 3 Encounters: 11/06/22 37.4 ??C (99.3 ??F) (Oral) 10/27/22 36.3 ??C (97.3 ??F) (Temporal) 10/13/22 36.3 ??C (97.3 ??F) (Temporal) Patient Weight 11/06/22 69.4 kg (153 lb) Baseline culture/source/susceptibility: Lab Results Component Value Date DIRECTEXAM 10/03/2022 Stain: No polymorphonuclear leukocytes seen. No organisms seen. DIRECTEXAM 10/02/2022 Molecular Analysis: Streptococcus species detected by the Verigene Blood Culture Nucleic Acid Test. This test does not exclude the possibility of a mixed bacterial infection. Notification of: Streptococcus species called to and read back by: Zoran Baca RN [phone] on 10/03/2022 14:12:18 by: Marta Simeon ME DIRECTEXAM 10/02/2022 Stain: Gram Positive Cocci in pairs and chains Time to culture positivity (anaerobic media): 11.1 hours Time to culture positivity (aerobic media): 11 hours Notification of: Gram Positive Cocci in pairs and chains called to and read back by: Nelia Crouch [phone] on 10/03/2022 08:51:39 by: Maddie Barrera MLS MICROBIOLOGY Final Report: No growth 10/03/2022 MICROBIOLOGY Final Report: No growth 10/03/2022 MICROBIOLOGY Final Report: No growth 10/03/2022 ORGANISM STREPTOCOCCUS MITIS GROUP 10/02/2022 ORGANISM STREPTOCOCCUS MITIS GROUP 10/02/2022 ORGANISM STREPTOCOCCUS MITIS GROUP 10/02/2022 Assessment/Plan The patient will be started on vancomycin utilizing bolus dose once followed by random levels basedon actual body weight. Will initiate dosing at 1750 mg IV once. Pharmacy will also follow closely for signs and symptoms of toxicity. Serum creatinine will be ordered per policy. Vancomycin random level has been ordered to be drawn on 11/07/22 at 1600. Goal trough is 15-20 mcg/mL. Pharmacy will continue to follow the patient???s culture results and clinical progress daily. Day 1 of therapy. Gunner Pathak RPh documented in this encounter H&P Notes * Rosa Jade NP - 11/06/2022 9:17 PM CDT Images from the original note were not included. History and Physical Date of Service: 11/06/2022 Primary Care Physician: Duane Corcoran MD [phone] SUBJECTIVE: Patient is a 72 y.o. female with a PMHx significant for dementia, depression, schizophrenia, DM type 2, HTN, HLD, neuropathy, and CKD 4. Presents to the ED with a chief complaint of right foot wound. HPI: Presents emergency department on November 06, 2022 with a wound to the right foot, redness, swelling of the right great toe. 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 She is post debridement October 30, 2022 by wound care. Endorses worsening redness and swelling since the procedure. Not currently on antibiotics. Patient has a historyof dementia, documented A/O x 1-2 at baseline, history is limited to the EMR with some information provided by the patient. Labs significant for stable CKD, stable anemia. Urine with 11-20 wbc's, 2+ LE, negative nitrite. CT head no acute intracranial pathology. X-ray of the right great toe concerning for cellulitis with associated osteomyelitis. Vancomycin, Flagyl, cefepime initiated. Past Medical History: Diagnosis Date Arthritis Dementia [...] hours asneeded for pain 30 tablet 1 11/06/2022 albuterol HFA (ProAir HFA) 90 mcg/actuation inhaler Inhale 2 puffs every 4 (four) hours as needed for wheezing or shortness of breath 8.5 g 2 Past Month apixaban (ELIQUIS) 5 mg tablet Take 1 tablet (5 mg total) by mouth every 12 (twelve) hours 180 tablet 0 atorvastatin (LIPITOR) 20 mg tablet Take 1 tablet (20 mg total) by mouth daily 90 tablet 3 11/05/2022 BD Arlyn 2nd Gen Pen Needle 32 gauge x needle USE TO INJECT BASAGLAR EVERY NIGHT AT BEDTIME Unknown benztropine (COGENTIN) 1 mg tablet Take 1.5 tablets (1.5 mg total) by mouth nightly 45 tablet 2 11/05/2022 blood pressure monitor kit Check BP as instructed 1 kit 0 carvediloL (COREG) 6.25 mg tablet Take 1 tablet (6.25 mg total) by mouth 2 (two) times a day with meals 60 tablet 2 11/06/2022 conner.stocking,thigh,reg,med misc Wear as much as possible 2 each 1 doxycycline hyclate 100 mg capsule dulaglutide (TRULICITY) 1.5 mg/0.5 mL pen injector Inject 0.5 mL (1.5 mg total) under the skin every 7 days 2 mL 2 Past Week famotidine (PEPCID) 10 mg tablet Take 1 tablet (10 mg total) by mouth nightly 90 tablet 0 Past Week flash glucose scanning reader (FreeStyle Madhav 2 Gasquet) [facility] [employer] Use to continually monitor glucose 1 each 0 flash glucose sensor (FreeStyle Madhav 2 Sensor) kit Use to continually monitor glucose, change every 14 days 6 kit 3 furosemide (LASIX) 40 mg tablet Take 1 tablet (40 mg total) by mouth daily as needed (Weight Gain >4lbs above dry weight.) 11/06/2022 insulin glargine 100 unit/mL (3 mL) pen for injection Inject 25 Units under the skin nightly 45 mL 4 11/05/2022 insulin lispro (HumaLOG) 200 unit/mL (3 mL) pen for injection Inject 0.06 mL (12 Units total) underthe skin 3 (three) times a day with meals For Glucose <140: 0 units(u), 140-174: 2u, 175-199: 4u, 200-249: 6u, 250-299: 8u, 300-349: 10u, 350+: 12u 5.4 mL 2 11/06/2022 lancets [facility] Check blood sugar up to 3 times a day 100 each 3 lidocaine HCL-menthoL 4-1 % adhesive patch,medicated Apply 2 patches topically daily Apply to patient lower back 11/05/2022 losartan (COZAAR) 50 mg tablet Take 1 tablet (50 mg total) by mouth daily 30 tablet 11 11/06/2022 miscellaneous medical supply (Blood Pressure Cuff) [facility] Use to check blood pressure daily 1 each 1 OneTouch Verio test strips strip TEST 3 TO 4 TIMES DAILY 400 each 1 polyethylene glycol (MIRALAX) 17 gram packet Take 1 packet (17 g total) by mouth daily as needed for constipation Unknown pregabalin (LYRICA) 150 mg capsule Take 1 capsule (150 mg total) by mouth nightly 30 capsule 2 11/05/2022 risperiDONE (RisperDAL) 2 mg tablet Take 1 tablet (2 mg total) by mouth nightly 30 tablet 2 11/05/2022 syringe with needle, insulin (INSULIN SYRINGE-NEEDLE U-100 [facility]) 3 times a day No Known Allergies Social History Tobacco Use Smoking status: Never Smokeless tobacco: Never Substance and Sexual Activity Drug use: Never Sexual activity: Defer Alcohol Use: Not At Risk (10/02/2022) AUDIT-C Frequency of Alcohol Consumption: Never Average Number of Drinks: Patient does not drink Frequency of Binge Drinking: Never Family History Problem Relation Age of Onset Stomach cancer Father Review of Systems: Review of Systems Constitutional: [...] for arthralgias, back pain and myalgias. Skin: Positive for wound. Negative for rash. Allergic/Immunologic: Negative for food allergies. Neurological: Negative for dizziness, tremors, seizures, syncope, weakness, light-headedness and headaches. Hematological: Negative for adenopathy. Psychiatric/Behavioral: Negative for confusion and hallucinations. The patient is not nervous/anxious. OBJECTIVE: Vitals: Arrival Vitals [11/06/22 0932] Temp 37.4 ??C (99.3 ??F) Pulse 63 Resp 17 BP 112/50 SpO2 98 % Temp src Oral Heart Rate Source Monitor Patient Position Sitting BP Location Right arm FiO2 (%) Most Recent : Vitals: 11/06/22 1735 11/06/22 2027 11/06/22204211/07/22 0027 BP: 154/80 130/53 128/50 BP Location: Left arm Right arm Patient Position: Lying;HOB 30 degrees Lying;HOB 30 degrees Pulse: 58 66 63 Resp: 18 18 Temp: 36.6 ??C (97.9 ??F) 36.4 ??C (97.6 ??F) TempSrc: Oral Axillary SpO2: 100% 96% 93% Weight: 69.5 kg (153 lb 3.2 oz) Height: No intake/output data recorded. No intake/output [...] Normal range of motion and neck supple. Feet: Feet: Right Foot: Skin Integrity: Positive for ulcer. Lymphadenopathy: Cervical: No cervical adenopathy. Skin: General: Skin is warm and dry. Capillary Refill: Capillary refill takes less than 2 seconds. Findings: Wound present. No rash. Comments: Dry wound, right, 1st toe at the tip, edema, redness Neurological: Mental Status: She is alert and oriented to person, place, and time. Psychiatric: Behavior: Behavior normal. Lab/Radiology/Diagnostic Review: Recent Results (from the past 24 hour(s)) Comprehensive metabolic panel Collection Time: 11/06/22 1:34 PM Result Value Ref Range Sodium 144 135 - 145 mmol/L Potassium, pl 4.0 3.3 - 4.9 mmol/L Chloride 106 97 - 110 mmol/L CO2 26 22 - 32 mmol/L Anion gap 12 2 - 15 mmol/L BUN 39 (H) 8 - 25 mg/dL Creatinine 2.00 (H) 0.60 - 1.10 mg/dL Glucose 161 70 - 199 mg/dL Calcium 9.2 8.5 - 10.3 mg/dL Bilirubin, total 0.2 0.1 - 1.2 mg/dL Protein, pl 7.0 6.5 - 8.5 g/dL Albumin 3.3 (L) 3.5 - 5.0 g/dL Alk phos 109 40 - 130 Units/L ALT 11 7 - 45 Units/L AST 18 10 - 45 Units/L eGFR Collection Time: 11/06/22 1:34 PM Result Value Ref Range eGFR 26 mL/min/1.73 m2 CBC with auto differential Collection Time: 11/06/22 1:35 PM Result Value Ref Range WBC 9.6 3.8 - 9.9 K/cumm Hgb 9.0 (L) 11.9 - 15.5 g/dL Hct 28.3 (L) 35.6 - 45.5 % Plt 295 150 - 400 K/cumm MPV 10.5 9.1 - 12.3 fL RBC 2.92 (L) 3.90 - 5.20 M/cumm MCV 96.9 (H) 81.3 - 96.4 fL MCH 30.8 27.1 - 33.3 pg MCHC 31.8 (L) 32.3 - 35.7 g/dL RDW CV 16.5 (H) 11.1 - 14.9 % RDW SD 58.6 (H) 35.7 - 48.1 fL NRBC abs 0.00 0.00 - 0.01 K/cumm Differential, auto Collection Time: 11/06/22 1:35 PM Result Value Ref Range Neutrophil abs 6.8 (H) 1.7 - 6.5 K/cumm Imm gran abs 0.0 0.0 - 0.1 K/cumm Lymphocyte abs 2.0 0.8 - 3.3 K/cumm Monocyte abs 0.6 0.2 - 0.8 K/cumm Eosinophil abs 0.1 0.0 - 0.5 K/cumm Basophil abs 0.0 0.0 - 0.1 K/cumm Neutrophil pct 71.2 % Imm gran pct 0.2 % Lymphocyte pct 20.7 % Monocyte pct 6.1 % Eosinophil pct 1.5 % Basophil pct 0.3 % Urinalysis reflex to microscopic and culture Urine Collection Time: 11/06/22 3:21 PM Specimen: Urine Result Value Ref Range Color, ur Straw Yellow Clarity, ur Clear Clear Specific gravity, ur 1.009 1.003 - 1.030 pH, urine 5.0 Protein, ur ql 3+ (A) Negative Glucose, ur ql 1+ (A) Negative Ketones, ur Negative Negative Bilirubin, ur Negative Negative Blood, ur 1+ (A) Negative Urobilinogen, ur <2.0 <2.0 mg/dL Nitrite, ur Negative Negative Leukocyte esterase, ur 2+ (A) Negative UA reflex comment Reflex to microscopic UA will be performed. Urinalysis, microscopic only Collection Time: 11/06/22 3:21 PM Result Value Ref Range WBC, ur 11-20 (A) 0 - 5 /HPF RBC, ur 0-2 0 - 2 /HPF Culture Reflex Comment Reflex to urine culture will be performed. CT Head WO Contrast Result Date: 11/06/2022 Narrative: Examination: CT HEAD WO CONTRAST Date: 11/06/2022 4:55 PM Clinical History: Mental statuschange, unknown cause Technique: Noncontrast CT head with 2-D reformatted views was obtained. Comparison:CT head 10/02/2022. Findings: Mild enlarged ventricles, sulci, and cisterns is seen with subtledecreased attenuation of the periventricular white matter. The medeiros-white matter differentiation ispreserved. No acute intracranial hemorrhage midline shift or mass effect is seen. Bilateral intraocular lens replacement is seen.. Mild left sphenoid compartment mucosal thickening is present. The mastoid and middle ear cavity are clear. The calvarium is intact. Hyperostosis frontalis interna is see n. Impression: No acute intracranial pathology. Electronically signed by: Brionna Randhawa M.D. XR Toe Great Right Minimum 2 Views Result Date: 11/06/2022 Narrative: EXAMINATION: XR TOE GREAT RIGHT MINIMUM 2 VIEWS DATE: 11/06/2022 11:50 AM HISTORY: Right great toe wound. COMPARISON: None. Impression: Findings/impression: Partial amputation of the 4th digit. No acute fracture. Atherosclerotic calcifications are demonstrated in the peripheral vasculature. Erosive changes are noted in the 1st digit distal tuft with associated irregularity of the soft tissue. Findings may represent cellulitis with associated osteomyelitis in the appropriate clinical setting Electronically signed by: Phil Pete II, D.O. US VEIN DUPLEX LOWER EXTREMITY LEFT LIMITED, UNILATERAL Result Date: 11/03/2022 Narrative: Am[employer]ion Job ID: [id number] Amphion Document ID: [id number] Dictated date/time: [id number] REASON FOR STUDY Left leg pain. FINDINGS No thrombus seen in the left common femoral, superficial femoral, popliteal, posterior peroneal or greater saphenous veins. IMPRESSION No evidence of DVT, left lower extremity. Job ID/Internal Job ID: [id number] ASSESSMENT/PLAN: Principal Problem: Osteomyelitis of great toe of right foot (CMS/HCC) ([facility]) Active Problems: Diabetic neuropathy ([facility]) Type 2 diabetes mellitus with diabetic neuropathy, with long-term current use of insulin (CMS/HCC) ([facility]) Hypertension associated with diabetes ([facility]) Gastroesophageal reflux disease without esophagitis Hyperlipidemia associated with type 2 diabetes mellitus ([facility]) Schizoaffective disorder, bipolar type (CMS/HCC) ([facility]) 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 2 diabetes mellitus (CMS/HCC) ([facility]) Late onset Alzheimer's dementia without behavioral disturbance ([facility]) Anemia in stage 4 chronic kidney disease ([facility]) Abnormal urinalysis Osteomyelitis, cellulitis of the great toe of the right foot-continue vanc, cefepime, Flagyl. NPO pending podiatry consult. Acetaminophen for pain. Abnormal urinalysis-pyuria with negative nitrites. On cefepime which should cover pending culture results. Diabetic neuropathy-continue Lyrica at home dose T2 dm-basal/bolus/SSI once she is cleared for p.o. intake. Currently NPO, q.4 hours fingersticks. Hypertension-continue carvedilol, losartan at home dose. Vital signs per floor routine. Anemia of chronic disease-stable trend, no evidence of acute blood loss. Monitor. GERD-famotidine Hyperlipidemia-continue atorvastatin at home dose. Schizoaffective, bipolar disorder-continue benztropine, risperidone at home dose. CKD 4-trending at baseline. Monitor. Avoid nephrotoxic agents. Alzheimer's dementia-stable mood, alert times 1-2. DVT prophylaxis-Lovenox Full Code ESTIMATED LENGTH OF STAY: >2 midnights MDM; high Voice recognition software MModal Fluency Direct was used dictate and transcribe this document. Engraver Signature variances may occur. Despite proofreading, typographical errors may occur. Rosa Jade NP 11/07/2022 1:23 AM Cosigned by Robert Hernandez MD at 11/07/2022 7:14 AM CDT Associated attestation - Robert Hernandez MD - 11/07/2022 7:14 AM CDT Osteomyelitis and cellulitis of the right great toe: Vanc, cefepime, Flagyl. Podiatry consult. Abnormal urinalysis: On cefepime. Diabetic neuropathy: Continue home Lyrica. Type 2 diabetes: Sliding scale insulin. CKD4: Trend GFR. I personally performed a substantive portion of this patient's encounter independently from the nurse practitioner. I have discussed the case and reviewed the history, exam and plan. I agree with thedocumented findings, and I have edited the note where appropriate. I reviewed the MDM and made changes where needed. Non-overlapping independent time spent managing the patient. I have independently reviewed the emergency room note which indicates the patient has right first toe redness and swelling. I have independently reviewed her hemoglobin which shows overall stable trend. I have independently ordered her Podiatry Consult documented in this encounter Consult Notes * Alla Goodman NP - 11/07/2022 12:04 PM CDTAssociated Order(s): IP CONSULT TO VASCULAR SURGERY Images from the original note were not included. Vascular Surgery H&P Sixto Chakraborty 1950 Reason for Consult: Right great toe wound, non-healing Requesting Provider: Dr. Larry Dennis Chief Complaint: Chief Complaint Patient presents with Wound Check Wound right foot 1st digit lower back pain not her self HPI: Sixto Chakraborty is 72 y.o. Black Or female with PMHx of DM2 with peripheral neuropathy, HTN, GERD, dementia, and CKD who presented to the ED with right foot wound. She is treatedfor right great toe wound by podiatry at [facility] for the last three months. She underwent debridement in office 10/30 and started having worsening redness and swelling. Patient is reported to have dementia and is oriented 1-2 at baseline. She has been starting on antibiotics. We were requested to consult to evaluate for PVD. ABIs were normal last year but this wound has been slow to heal. She takes Eliquis and statin. HOME MEDICATIONS : acetaminophen (TYLENOL) 325 mg tablet albuterol HFA (ProAir HFA) 90 mcg/actuation inhaler apixaban (ELIQUIS) 5 mg tablet atorvastatin (LIPITOR) 20 mg tablet BD Arlyn 2nd Gen Pen Needle 32 gauge x 5/32 needle benztropine (COGENTIN) 1 mg tablet blood pressure monitor kit carvediloL (COREG) 6.25 mg tablet conner.stocking,thigh,reg,med [facility] doxycycline hyclate 100 mg capsule dulaglutide (TRULICITY) 1.5 mg/0.5 mL pen injector famotidine (PEPCID) 10 mg tablet flash glucose scanning reader (FreeStyle Madhav 2 Gasquet) [facility] flash glucose sensor (FreeStyle Madhav 2 Sensor) kit furosemide (LASIX) 40 mg tablet insulin glargine 100 unit/mL (3 mL) pen for injection insulin lispro (HumaLOG) 200 unit/mL (3 mL) pen for injection lancets [facility] lidocaine HCL-menthoL 4-1 % adhesive patch,medicated losartan (COZAAR) 50 mg tablet miscellaneous medical supply (Blood Pressure Cuff) [facility] OneTouch Verio test strips strip polyethylene glycol (MIRALAX) 17 gram packet pregabalin (LYRICA) 150 mg capsule risperiDONE (RisperDAL) 2 mg tablet syringe with needle, insulin (INSULIN SYRINGE-NEEDLE U-100 [facility]) omeprazole (PriLOSEC) 20 mg capsule Current Facility-Administered Medications: acetaminophen (TYLENOL) tablet 650 mg, 650 mg, oral, Q4H PRN albuterol HFA (PROVENTIL HFA,VENTOLIN HFA,PROAIR HFA) 90 mcg/actuation inhaler 2 puff, 2 puff, inhalation, Q4H PRN (RT) aluminum-magnesium hydroxide-simethicone (MAALOX) 40-40-4 mg/mL oral suspension 30 mL, 30 mL, oral,Q4H PRN atorvastatin (LIPITOR) tablet 20 mg, 20 mg, oral, Daily benztropine (COGENTIN) tablet 1.5 mg, 1.5 mg, oral, Nightly carvediloL (COREG) tablet 6.25 mg, 6.25 mg, oral, BID with meals (bkfst, dinner) cefepime (MAXIPIME) 2,000 mg in sodium chloride 0.9% 100 mL IVPB, 2,000 mg, intravenous, Q24H SOL dextrose oral liquid liquid 15 g, 15 g, oral, Q15 Min PRN OR dextrose (D10W) 10% bolus 250 mL, 250 mL, intravenous, Q15 Min PRN enoxaparin (LOVENOX) syringe 30 mg, 30 mg, subcutaneous, Daily-2100 famotidine (PEPCID) tablet 10 mg, 10 mg, oral, Nightly glucagon injection 1 mg, 1 mg, intramuscular, Q30 Min PRN insulin lispro (HumaLOG, ADMELOG) 100 unit/mL injection 0-10 Units, 0-10 Units, subcutaneous, Q4H SOL, 4 Units at 11/07/22 0307 losartan (COZAAR) tablet 50 mg, 50 mg, oral, Daily metroNIDAZOLE (FLAGYL) 500 mg/100 mL in sodium chloride (premix) 500 mg, 500 mg, intravenous, Q8H SOL, Last Rate: 200 mL/hr at 11/07/22 0505, 500 mg at 11/07/22 0505 ondansetron (ZOFRAN) injection 4 mg, 4 mg, intravenous, Q6H PRN oxyCODONE (ROXICODONE) tablet 5 mg, 5 mg, oral, Q4H PRN polyethylene glycol (MIRALAX) packet 17 g, 17 g, oral, Daily PRN pregabalin (LYRICA) capsule 150 mg, 150 mg, oral, Nightly risperiDONE (RisperDAL) tablet 2 mg, 2 mg, oral, Nightly No Known Allergies Past Medical History: Diagnosis Date Arthritis Dementia [...] activity: Defer Alcohol Use: Not At Risk (10/02/2022) AUDIT-C Frequency of Alcohol Consumption: Never Average Number of Drinks: Patient does not drink Frequency of Binge Drinking: Never Review of Systems - All other systems reviewed and are negative except as listed below: Review of Systems Constitutional: Negative for fever. HENT: Negative. Eyes: Negative. Respiratory: Negative. Cardiovascular: Negative. Gastrointestinal: Negative. Genitourinary: Negative. Musculoskeletal: Negative. Skin: Positive for wound. Neurological: Positive for weakness and numbness. Psychiatric/Behavioral: Positive for confusion. Vital Signs: Vitals: 11/07/22 0731 BP: 122/75 Pulse: 66 Resp: 19 Temp: 36.5 ??C (97.7 ??F) SpO2: 96% Body surface area is 1.74 meters squared. No intake/output data recorded. Physical Exam HENT: Head: Normocephalic. Eyes: Extraocular Movements: Extraocular movements intact. Cardiovascular: Rate and Rhythm: Normal rate and regular rhythm. Pulses: Radial pulses are 2+ on the right side and 2+ on the left side. Femoral pulses are 2+ on the right side and 2+ on the left side. Dorsalis pedis pulses are 2+ on the right side and 2+ on the left side. Posterior tibial pulses are detected w/ Doppler on the right side and detected w/ Doppler on the left side. Comments: Trace edema BLE Pulmonary: Effort: Pulmonary effort is normal. Abdominal: Palpations: Abdomen is soft. Musculoskeletal: General: Normal range of motion. Cervical back: Normal range of motion. Comments: 5/5 strength BLE Skin: General: Skin is warm and dry. Comments: Ulcer to right great toe distal tip Neurological: Mental Status: She is alert. Comments: A&Ox 1-2, chronically reduced sensation in feet Labs: Reviewed. Recent Labs Lab Units 11/07/22 0533 WBC K/cumm 7.2 HEMOGLOBIN g/dL 8.2* HEMATOCRIT % 26.6* PLATELETS K/cumm 287 Recent Labs Lab Units 11/07/22 0749 11/07/22 0533 11/07/22 0304 11/06/22 1334 SODIUM mmol/L -- 145 -- 144 POTASSIUM PLASMA mmol/L -- 3.9 -- 4.0 CHLORIDE mmol/L -- 109 -- 106 CO2 mmol/L -- 24 -- 26 ANIONGAP mmol/L -- 12 -- 12 GLUCOSE mg/dL -- 217* -- 161 POC GLUCOSE MONITOR mg/dL 164 -- < > -- BUN SERUM mg/dL -- 37* -- 39* CREATININE mg/dL -- 1.98* -- 2.00* CALCIUM mg/dL -- 9.0 -- 9.2 ALBUMIN g/dL -- -- -- 3.3* ALK PHOS Units/L -- -- -- 109 ALT Units/L -- -- -- 11 AST Units/L -- -- -- 18 BILIRUBIN TOTAL mg/dL -- -- -- 0.2 < > = values in this interval not displayed. Imaging/Labs: Assessment and Plan: Principal Problem: Osteomyelitis of great toe of right foot (CMS/HCC) ([facility]) Active Problems: Diabetic neuropathy ([facility]) Type 2 diabetes mellitus with diabetic neuropathy, with long-term current use of insulin (CMS/HCC) ([facility]) Hypertension associated with diabetes ([facility]) Gastroesophageal reflux disease without esophagitis Hyperlipidemia associated with type 2 diabetes mellitus ([facility]) Schizoaffective disorder, bipolar type (CMS/HCC) ([facility]) 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 2 diabetes mellitus (CMS/HCC) ([facility]) Late onset Alzheimer's dementia without behavioral disturbance ([facility]) Anemia in stage 4 chronic kidney disease ([facility]) Abnormal urinalysis Sixto Chakraborty has a poorly healing right great toe ulcer. No signs of acute limb ischemia as DP are palpable and sensorimotor function has no gross abnormalities. She has chronic peripheral neuropathy. -Will check TEO and arterial duplex to evaluate blood flow for healing potential. -Continues on statin and Eliquis -Wound care per Podiatry -Abx per ID -Will follow up on 11/10 with test results Thank you for allowing us to participate in the care of this patient. We will continue to follow. If you have any questions, please don't hesitate to call. Alla Goodman NP Vascular Surgery [facility] [phone] 2:04 PM Cosigned by Alex Jurado MD at 11/07/2022 4:15 PM CDT * Krishna Morgan MD - 11/07/2022 9:07 AM CDT Images from the original note were not included. Infectious Disease Consult Consulting Physician:Bev Adames MD Reason for consult:OM toe HPI: Patient is a 72 y.o. female with history of dementia, depression, schizophrenia, type 2 diabetes, hypertension, hyperlipidemia, CKD presented to the ER with a complaint of right foot wound with rightfoot redness and swelling, can easily underwent debridement on October 30 right great toe at wound center, history is limited due to dementia, most of the history from medical record. In the ER patient was noted to have a temp 99.3??, normal WBCs, UA with pyuria the patient had blood cultures drawn started on vancomycin cefepime and Flagyl, infectious disease service being consulted for antibiotic management and osteomyelitis. PMH: Past Medical History: Diagnosis Date Arthritis Dementia (HCC) Depression Diabetic neuropathy (HCC) Hyperlipidemia Hypertension Renal disorder Schizophrenia (HCC) Type 2 diabetes mellitus (HCC) PSH: Past Surgical History: Procedure Laterality Date SECTION Right right foot TOE AMPUTATION Right 01/06/2020 4th toe amp/ foot debridement/ Dr. Anat Pelayo Med: Current Facility-Administered Medications Medication Dose Route Frequency Provider Last Rate Last Admin acetaminophen (TYLENOL) tablet 650 mg 650 mg oral Q4H PRN Rosa Jade NP albuterol HFA (PROVENTIL HFA,VENTOLIN HFA,PROAIR HFA) 90 mcg/actuation inhaler 2 puff 2 puff inhalation Q4H PRN (RT) Rosa Jade NP atorvastatin (LIPITOR) tablet 20 mg 20 mg oral Daily Rosa Jade NP benztropine (COGENTIN) tablet 1.5 mg 1.5 mg oral Nightly Rosa Jade NP carvediloL (COREG) tablet 6.25 mg 6.25 mg oral BID with meals (bkfst, dinner) Rosa Jade NP cefepime (MAXIPIME) 2,000 mg in sodium chloride 0.9% 100 mL IVPB 2,000 mg intravenous Q24H Nadege Patrick, ANAY dextrose oral liquid liquid 15 g 15 g oral Q15 Min PRN Rosa Jade NP Or dextrose (D10W) 10% bolus 250 mL 250 mL intravenous Q15 Min PRN Rosa Jade NP famotidine (PEPCID) tablet 10 mg 10 mg oral Nightly Rosa Jade NP glucagon injection 1 mg 1 mg intramuscular Q30 Min PRN Rosa Jade NP insulin lispro (HumaLOG, ADMELOG) 100 unit/mL injection 0-10 Units 0-10 Units subcutaneous Q4H [facility] Rosa Jade NP 4 Units at 11/07/22 0307 losartan (COZAAR) tablet 50 mg 50 mg oral Daily Rosa Jade NP metroNIDAZOLE (FLAGYL) 500 mg/100 mL in sodium chloride (premix) 500 mg 500 mg intravenous Q8H Nadege Patrick PA 200 mL/hr at 11/07/22 0505 500 mg at 11/07/22 0505 ondansetron (ZOFRAN) injection 4 mg 4 mg intravenous Q6H PRN Rosa Jade NP polyethylene glycol (MIRALAX) packet 17 g 17 g oral Daily PRN Rosa Jade NP pregabalin (LYRICA) capsule 150 mg 150 mg oral Nightly Robert Hernandez MD risperiDONE (RisperDAL) tablet 2 mg 2 mg oral Nightly Rosa Jade NP Allergies: No Known Allergies SH: Social History Tobacco Use Smoking status: Never Smokeless tobacco: Never Substance and Sexual Activity Drug use: Never Sexual activity: Defer Alcohol Use: Not At Risk (10/02/2022) AUDIT-C Frequency of Alcohol Consumption: Never Average Number of Drinks: Patient does not drink Frequency of Binge Drinking: Never FH: Family History Problem Relation Age of Onset Stomach cancer Father Immunosuppressive Medications: acetaminophen, albuterol HFA, apixaban, atorvastatin, benztropine, blood glucose diagnostic, blood pressure monitor, carvediloL, (conner.stocking,thigh,reg,med), doxycycline, dulaglutide, famotidine, flash glucose scanning reader, flash glucose sensor, furosemide, insulin glargine, insulin lispro,lancets, lidocaine HCL-menthoL, losartan, miscellaneous medical supply, omeprazole, (pen needle, diabetic), polyethylene glycol, pregabalin, risperiDONE, and (syringe with needle, insulin) Active LDAs: Peripheral IV 11/06/22 20 G Anterior;Right Forearm (Active) Site Assessment Clean and dry 11/06/222002 IV Line Status Single Infusing;Flushes easily 11/06/222002 Dressing Type Transparent 11/06/222002 Dressing Status Clean, dry, intact 11/06/222002 Number of days: 1 External Urinary Catheter (Active) Collection Container Suction Canister- female only 11/06/22 1140 Number of days: 1 [REMOVED] PICC Single Lumen 01/09/20 Non-tunneled Power Left Brachial;Upper arm (Removed) Number of days: 577 [REMOVED] Peripheral IV 01/04/20 22 G Distal;Left;Posterior Forearm (Removed) Number of days: 5 [REMOVED] Peripheral IV 08/07/21 20 G Right Antecubital (Removed) Number of days: 7 [REMOVED] Peripheral IV 09/06/21 20 G Left Antecubital (Removed) Number of days: 4 [REMOVED] Peripheral IV 09/10/21 22 G Left Forearm (Removed) Number of days: 1 [REMOVED] Peripheral IV 09/11/21 20 G Right Wrist (Removed) Number of days: 7 [REMOVED] Peripheral IV 11/15/21 20 G Right Antecubital (Removed) Number of days: 8 [REMOVED] Peripheral IV 11/23/21 22 G Posterior;Right Hand (Removed) Number of days: 3 [REMOVED] Peripheral IV 05/08/22 20 G Left Antecubital (Removed) Number of days: 1 [REMOVED] Peripheral IV 06/19/22 20 G Anterior;Proximal;Right Forearm (Removed) Number of days: 3 [REMOVED] Peripheral IV 06/20/22 22 G Posterior;Right Hand (Removed) Number of days: 2 [REMOVED] Peripheral IV 08/01/22 20 G Anterior;Right Wrist (Removed) Number of days: 5 [REMOVED] Peripheral IV 08/05/22 22 G Left Antecubital (Removed) Number of days: 2 [REMOVED] Peripheral IV 09/04/22 20 G Right Antecubital (Removed) Number of days: 0 [REMOVED] Peripheral IV 10/02/22 20 G Anterior;Right Forearm (Removed) Number of days: 4 [REMOVED] External Urinary Catheter (Removed) Number of days: 34 [REMOVED] External Urinary Catheter (Removed) Number of days: 63 Review of Systems: Gen: denies fevers, denies chills, denies sweats, denies unintentional weight loss HEENT: Denies sore throat, denies thrush Neck: Denies palpable lymph nodes, denies neck stiffness Cv: denies chest pain, denies palpitations Resp: Denies SOB, Denies orthopnea Gi: Denies abdominal pain, Denies diarrhea, denies n/v Extrem: Denies gross deformities, denies joint pain, denies myalgias, positive right great toe wound Skin: Denies rashes, denies lesions Neuro: Denies weakness, denies paresthesias, denies memory loss Psych: denies depression, denies anxiety Objective: Vitals: 24hr Min/Max: Temp Min: 36.4 ??C (97.6 ??F) Max: 37.4 ??C (99.3 ??F) Pulse Min: 57 Max: 66 BP Min: 112/50 Max: 167/95 Resp Min: 17 Max: 19 SpO2 Min: 93 % Max: 100 % Physical Exam: General appearance: alert, cooperative, no distress HEENT: (-)icterus, Oropharnyx is normal, NCAT Neck: No palpable LN Lungs: breath sounds normal and symmetric; minimal respiratory effort, no r/w/c Heart: regular rhythm, normal S1 and S2, no m/r/g Abdomen: soft without mass, non-tender, +bowel sounds, no HSM Skin: (-)new rashes, no ulcerations MSK: no gross deformities, FROM Extremities : Positive Edema, pulses present bilaterally, positive erythema induration of the rightgreat toe crusted wound on the tip of the toe Neuro: No focal deficits Psych: Appropriate mood and affect Lab/Radiology/Diagnostic Review: . 11/06 x-ray right foot IMPRESSION: Findings/impression: Partial amputation of the 4th digit. No acute fracture. Atherosclerotic calcifications are demonstrated in the peripheral vasculature. Erosive changes are noted in the 1st digit distal tuft with associated irregularity of the soft tissue. Findings may represent cellulitis with associated osteomyelitis in the appropriate clinical setting 10/11 arterial Doppler lower extremity INTERPRETATION Right ankle-brachial index of 1.1 which is normal. Left ankle-brachial index of 1.1 which is normal. Recent Labs Lab Units 11/07/22 0533 11/06/22 1335 WBC K/cumm 7.2 9.6 HEMOGLOBIN g/dL 8.2* 9.0* HEMATOCRIT % 26.6* 28.3* PLATELETS K/cumm 287 295 Recent Labs Lab Units 11/07/22 0533 11/06/22 1334 BUN SERUM mg/dL 37* 39* CREATININE mg/dL 1.98* 2.00* Lab Results Component Value Date ALT 11 11/06/2022 AST 18 11/06/2022 ALKPHOS 109 11/06/2022 BILITOT 0.2 11/06/202211/06 blood culture pending 11/06 urine culture pending Assessment: Osteomyelitis right great toe with possible cellulitis CKD Type 2 diabetes with neuropathy Pyuria Hypertension Hyperlipidemia Dementia Plan: Continue on the vanc cefepime and Flagyl Follow-up urine and blood cultures Podiatry has been consulted Arterial Doppler lower extremity MRI right foot Patient instructed to elevate lower extremity Supportive care Thank you for allowing me to participate in the care of this patient will follow along. Krishna Morgan MD [place] [facility] 11/07/2022 Voice recognition software was used to complete this document, therefore, gandy dancer variances may occur. * Portillo Marin DPM - 11/07/2022 9:01 AM CDTAssociated Order(s): IP CONSULT TO PODIATRY [facility] Subjective: Patient is a 72 y.o. female with PMH of T2DM with peripheral neuropathy . Podiatry was consulted for evaluation of chronic wound to right hallux. Patient states that she first noticed the wound yesterday. Patient denies any injury to area, patient poor historian. Majority of history obtained from daughter via phones, states that wound has been present for approximately three months and has been seeing wound care at [facility]. Patient's daughter states she has noticed drainage fromarea with her dressing changes and became concerned and brought patient to [facility] for further evaluation. Patient's daughter requesting vascular evaluation during this admission, states it was planned to be done at [place] previously. Past Medical History: Diagnosis Date Arthritis Dementia (HCC) Depression Diabetic neuropathy (HCC) Hyperlipidemia Hypertension Renal disorder Schizophrenia (HCC) Type 2 diabetes mellitus (HCC) Past Surgical History: Procedure Laterality Date SECTION Right right foot TOE AMPUTATION Right 01/06/2020 4th toe amp/ foot debridement/ Dr. Anat Pelayo Current Facility-Administered Medications: acetaminophen (TYLENOL) tablet 650 mg, 650 mg, oral, Q4H PRN, Rosa Jade, JARAD albuterol HFA (PROVENTIL HFA,VENTOLIN HFA,PROAIR HFA) 90 mcg/actuation inhaler 2 puff, 2 puff, inhalation, Q4H PRN (RT), Rosa Jade NP atorvastatin (LIPITOR) tablet 20 mg, 20 mg, oral, Daily, Rosa Jade NP benztropine (COGENTIN) tablet 1.5 mg, 1.5 mg, oral, Nightly, Rosa Jade, JARAD carvediloL (COREG) tablet 6.25 mg, 6.25 mg, oral, BID with meals (bkfst, dinner), Rosa Jade NP cefepime (MAXIPIME) 2,000 mg in sodium chloride 0.9% 100 mL IVPB, 2,000 mg, intravenous, Q24H SOL, Nadege Amezquita, ANAY dextrose oral liquid liquid 15 g, 15 g, oral, Q15 Min PRN OR dextrose (D10W) 10% bolus 250 mL, 250 mL, intravenous, Q15 Min PRN, Rosa Jade, SUMAC TANNER famotidine (PEPCID) tablet 10 mg, 10 mg, oral, Nightly, Rosa Jade NP glucagon injection 1 mg, 1 mg, intramuscular, Q30 Min PRN, Rosa Jade, JARAD insulin lispro (HumaLOG, ADMELOG) 100 unit/mL injection 0-10 Units, 0-10 Units, subcutaneous, Q4H SOL, Rosa Jade NP, 4 Units at 11/07/22 0307 losartan (COZAAR) tablet 50 mg, 50 mg, oral, Daily, Rosa Jade, JARAD metroNIDAZOLE (FLAGYL) 500 mg/100 mL in sodium chloride (premix) 500 mg, 500 mg, intravenous, Q8H SOL, Nadege Amezquita PA, Last Rate: 200 mL/hr at 11/07/22 0505, 500 mg at 11/07/22 0505 ondansetron (ZOFRAN) injection 4 mg, 4 mg, intravenous, Q6H PRN, Rosa Jade, JARAD polyethylene glycol (MIRALAX) packet 17 g, 17 g, oral, Daily PRN, Rosa Jade, JARAD pregabalin (LYRICA) capsule 150 mg, 150 mg, oral, Nightly, Robert Hernandez MD risperiDONE (RisperDAL) tablet 2 mg, 2 mg, oral, Nightly, Rosa Jade NP No Known Allergies Social History Tobacco Use Smoking status: Never Smokeless tobacco: Never Substance and Sexual Activity Drug use: Never Sexual activity: Defer Alcohol Use: Not At Risk (10/02/2022) AUDIT-C Frequency of Alcohol Consumption: Never Average [...] as stated in HPI. Objective: Vitals: Vitals: 11/07/22 0731 BP: 122/75 Pulse: 66 Resp: 19 Temp: 36.5 ??C (97.7 ??F) SpO2: 96% General: Patient is A&O x4, NAD. Lower extremity focused physical exam: Derm: Skin is cool, dry. Open wound noted to: distal aspect of right hallux, negative probe to bone, no active drainage, no surrounding erythema, no proximal streaking. No [...] Labs: Lab Results Component Value Date SODIUM 145 11/07/2022 POTASSIUM 3.9 11/07/2022 CHLORIDE 109 11/07/2022 CO2 24 11/07/2022 ANIONGAP 12 11/07/2022 BUNSER 37 (H) 11/07/2022 CREATININE 1.98 (H) 11/07/2022 GLUCOSE 164 11/07/2022 CALCIUM 9.0 11/07/2022 BILITOT 0.2 11/06/2022 PROT 7.0 11/06/2022 ALBUMIN 3.3 (L) 11/06/2022 ALKPHOS 109 11/06/2022 ALT 11 11/06/2022 AST 18 11/06/2022 Lab Results Component Value Date WBC 7.2 11/07/2022 HGB 8.2 (L) 11/07/2022 HCT 26.6 (L) 11/07/2022 LABPLAT 287 11/07/2022 MPV 10.8 11/07/2022 RBC 2.73 (L) 11/07/2022 MCV 97.4 (H) 11/07/2022 MCH 30.0 11/07/2022 MCHC 30.8 (L) 11/07/2022 RDWCV 16.1 (H) 11/07/2022 RDWSD 57.6 (H) 11/07/2022 NRBCABS 0.00 11/07/2022 Lab Results Component Value Date SEDRATE 94 (H) 02/07/2021 CRP 3.1 02/07/2021 Radiology/Pathology: 11/06/22 EXAMINATION: XR TOE GREAT RIGHT MINIMUM 2 VIEWS DATE: 11/06/2022 11:50 AM HISTORY: Right great toe wound. COMPARISON: None. Impression: Findings/impression: Partial amputation of the 4th digit. No acute fracture. Atherosclerotic calcifications are demonstrated in the peripheral vasculature. Erosive changes are noted in the 1st digit distal tuft with associated irregularity of the soft tissue. Findings may represent cellulitis with associated osteomyelitis in the appropriate clinical setting Assessment: 1. Osteomyelitis of great toe of right foot (CMS/HCC) (HCC) 2. Cellulitis of great toe of right foot 3. T2DM with peripheral neuropathy Plan: - Patient examined and evaluated - Reviewed labs/radiographs - No leukocytosis - No acute signs of infection to right hallux - Reviewed radiographs, mild erosion to distal phalanx of right hallux - Discussed findings with patient and daughter - Discussed wound care vs. Amputation of digit - Patient states she does not want amputation - Discussed case with patient's daughter, daughters main concern was drainage from wound and blood flow - Ordered TEO, recommend Vascular Surgery consult due to chronic nature of wound - Changed NPO status, no plan for surgery per Podiatry - Wound care: recommend daily betadine paint and dry sterile dressing to area - Weight bearing status: WBAT - Patient may follow up at Wound center or [facility] for further wound care - Podiatry signing off at this time Portillo Marin DPM Voice recognition software Topguest Direct was used to dictate/transcribe this document. Engraver Signature variances may occur. Despite proofreading, typographical, grammatical and syntax errors may occur. documented in this encounter Nursing Notes * Lulú Jacome RN - 11/13/2022 6:41 PM CDT EMS picked up patient to transport to [facility] this evening. Patient discharged with [facility]. Daughter states she will meet her mother at facility. * Lulú Jacome RN - 11/13/2022 4:37 PM CDT Report given to Kim at [facility] [place], nurse aware EMS is set up at 1800. * Bruce Lau RN - 11/13/2022 10:56 AM CDT Impression: Patient re-evaluated by SWAT RN due to increase risk for impaired skin integrity. Timoteo Score: 18. Contributing history includes: HLD, HTN, DM, GERD, CKD, Anemia, Amputation of toe on right foot, osteomyelitis of great toe on right foot. Skin appears free from Umu at this time. Plan: Continue pressure prevention orders- Q2 turns, waffle mattress, absorbant pads, and prevalon boots. Goal: Pressure relief. Moisture management. * Bruce Lau RN - 11/07/2022 8:51 AM CDT Impression: Patient evaluated by SWEDNA RN due to increase risk for impaired skin integrity. Timoteo Score: 18. Contributing history includes: HLD, HTN, DM, GERD, CKD, Anemia, Amputation of toe on rightfoot, osteomyelitis of great toe on right foot. Skin appears free from Umu at this time. Plan: Continue pressure prevention orders- Q2 turns, waffle mattress, absorbant pads, and prevalon boots. Goal: Pressure relief. Moisture management. documented in this encounter ED Notes * Nadege Amezquita PA - 11/06/2022 4:18 PM CDT Images from the original note were not included. HPI Chief Complaint Patient presents with Wound Check Wound right foot 1st digit lower back pain not her self HPI 6:06 PM Sixto Chakraborty is a 72 y.o. female presenting to the ED c/o worsening redness / swelling ofright great toe. Patient has history of necrosis to distal aspect of right great toe and is actively being treated by wound care/Podiatry. She was seen by wound care on 10/30 and had debridement performed. Family states since then she has been having worsening redness and swelling of the right big toe. She is not currently on any oral antibiotics. History is somewhat limited as patient's family is not at bedside. Patient has dementia and is onlyoriented times 1-2 at baseline. Patient History: Past Medical History: Diagnosis Date Arthritis Dementia [...] activity: Defer Alcohol Use: Not At Risk (10/02/2022) AUDIT-C Frequency of Alcohol Consumption: Never Average Number of Drinks: Patient does not drink Frequency of Binge Drinking: Never These factors certainly contributing to social determinants of health Current Facility-Administered Medications: cefepime (MAXIPIME) 2,000 mg in sodium chloride 0.9% 100 mL IVPB, 2,000 mg, intravenous, Q24H SOL metroNIDAZOLE (FLAGYL) 500 mg/100 mL in sodium chloride (premix) 500 mg, 500 mg, intravenous, Q8H SOL vancomycin 1,750 mg/517.5 mL sodium chloride 0.9% (premix) 1,750 mg, 25 mg/kg, intravenous, Once, 1,750 mg at 11/06/22 7574 Current Outpatient Medications: acetaminophen (TYLENOL) 325 mg tablet albuterol HFA (ProAir HFA) 90 mcg/actuation inhaler apixaban (ELIQUIS) 5 mg tablet atorvastatin (LIPITOR) 20 mg tablet BD Arlyn 2nd Gen Pen Needle 32 gauge x 5/32 needle benztropine (COGENTIN) 1 mg tablet blood pressure monitor kit carvediloL (COREG) 6.25 mg tablet conner.stocking,thigh,reg,med misc doxycycline hyclate 100 mg capsule dulaglutide (TRULICITY) 1.5 mg/0.5 mL pen injector famotidine (PEPCID) 10 mg tablet flash glucose scanning reader (StaffInsightStyle Madhav 2 Gasquet) [employer] flash glucose sensor (FreeStyle Madhav 2 Sensor) kit furosemide (LASIX) 40 mg tablet insulin glargine 100 unit/mL (3 mL) pen for injection insulin lispro (HumaLOG) 200 unit/mL (3 mL) pen for injection lancets [employer] losartan (COZAAR) 50 mg tablet miscellaneous medical supply (Blood Pressure Cuff) [employer] OneTouch Verio test strips strip polyethylene glycol (MIRALAX) 17 gram packet pregabalin (LYRICA) 150 mg capsule risperiDONE (RisperDAL) 2 mg tablet syringe with needle, insulin (INSULIN SYRINGE-NEEDLE U-100 [facility]) Review of Systems Review of Systems All systems reviewed and are neg or non contributory for this patients presentation today other than as stated in the HPI . Physical Exam ED Triage Vitals [11/06/22 0932] Temp Pulse Resp BP SpO2 37.4 ??C (99.3 ??F) 63 17 112/50 98 % Temp src Heart Rate Source Patient Position BP Location FiO2 (%) Oral Monitor Sitting Right arm -- Height Height Method Weight Weight Method 1.575 m (5' 2 ) Stated 69.4 kg (153 lb) -- Patient Vitals for the past 24 hrs: BP Temp Temp src Pulse Resp SpO2 Height Weight 11/06/22 1735 154/80 -- -- 58 -- 100 % -- -- 11/06/22 0932 112/50 37.4 ??C (99.3 ??F) Oral 63 17 98 % 157.5 cm (5' 2 ) 69.4 kg (153 lb) Physical Exam Vitals and nursing note reviewed. Constitutional: General: She is not in acute distress. Appearance: Normal appearance. She is obese. She is not toxic-appearing or diaphoretic. Comments: Pleasantly demented HENT: Head: Normocephalic and atraumatic. Right Ear: External ear normal. Left Ear: External ear normal. Nose: Nose normal. Mouth/Throat: Mouth: Mucous membranes are moist. Pharynx: Oropharynx is clear. Eyes: Extraocular Movements: Extraocular movements intact. Conjunctiva/sclera: Conjunctivae normal. Cardiovascular: Rate and Rhythm: Normal rate and regular rhythm. Pulmonary: Effort: Pulmonary effort is normal. No respiratory distress. Breath sounds: Normal breath sounds. Abdominal: General: Bowel sounds are normal. Palpations: Abdomen is soft. Tenderness: There is no abdominal tenderness. There is no guarding or rebound. Musculoskeletal: General: No tenderness or deformity. Normal range of motion. Cervical back: Normal range of motion and neck supple. Comments: There is faint erythema and swelling of right great toe with scabbing and eschar to distal right great toe status post debridement See attached image Skin: General: Skin is warm and dry. Neurological: General: No focal deficit present. Mental Status: She is alert. Mental status is at baseline. Cranial Nerves: No cranial nerve deficit. Sensory: No sensory deficit. Motor: No weakness. Coordination: Coordination normal. Comments: Baseline tremor of bilateral upper extremities - patient with history of Parkinson's Psychiatric: Mood and Affect: Mood normal. Procedures MDM Labs Reviewed URINALYSIS AND REFLEX TO MICROSCOPIC AND CULTURE - Abnormal Result Value Color, ur Straw Clarity, ur Clear Specific gravity, ur 1.009 pH, urine 5.0 Protein, ur ql 3+ (*) Glucose, ur ql 1+ (*) Ketones, ur Negative Bilirubin, ur Negative Blood, ur 1+ (*) Urobilinogen, ur <2.0 Nitrite, ur Negative Leukocyte esterase, ur 2+ (*) UA reflex comment Reflex to microscopic UA will be performed. Narrative: Urine pH is affected by diet, medications, systemic acid-base disturbances, and renal tubular function. pH may affect urinary stone formation. For example, urine pH below 6.0 may help reduce the tendency for calcium phosphate stones and pH greater than 6.0 may reduce the tendency for uric acid stone formation. Source: [employer].Last revised 07-02-2017 CBC WITH AUTO DIFFERENTIAL - Abnormal WBC 9.6 Hgb 9.0 (*) Hct 28.3 (*) Plt 295 MPV 10.5 RBC 2.92 (*) MCV 96.9 (*) MCH 30.8 MCHC 31.8 (*) RDW CV 16.5 (*) RDW SD 58.6 (*) NRBC abs 0.00 COMPREHENSIVE METABOLIC PANEL - Abnormal Sodium 144 Potassium, pl 4.0 Chloride 106 CO2 26 Anion gap 12 BUN 39 (*) Creatinine 2.00 (*) Glucose 161 Calcium 9.2 Bilirubin, total 0.2 Protein, pl 7.0 Albumin 3.3 (*) Alk phos 109 ALT 11 AST 18 DIFFERENTIAL AUTO - Abnormal Neutrophil abs 6.8 (*) Imm gran abs 0.0 Lymphocyte abs 2.0 Monocyte abs 0.6 Eosinophil abs 0.1 Basophil abs 0.0 Neutrophil pct 71.2 Imm gran pct 0.2 Lymphocyte pct 20.7 Monocyte pct 6.1 Eosinophil pct 1.5 Basophil pct 0.3 URINALYSIS, MICROSCOPIC ONLY - Abnormal WBC, ur 11-20 (*) RBC, ur 0-2 Culture Reflex Comment Reflex to urine culture will be performed. URINE CULTURE BLOOD CULTURE BLOOD CULTURE EGFR eGFR [address] Head WO Contrast Final Result No acute intracranial pathology. Electronically signed by: Brionna Randhawa M.D. XR Toe Great Right Minimum 2 Views Final Result Findings/impression: Partial amputation of the 4th digit. No acute fracture. Atherosclerotic calcifications are demonstrated in the peripheral vasculature. Erosive changes are noted in the 1st digit distal tuft with associated irregularity of the soft tissue. Findings may represent cellulitis with associated osteomyelitis in the appropriate clinical setting Electronically signed by: Phil Pete II, D.O. BP 154/80 Pulse 58 Temp 37.4 ??C (99.3 ??F) (Oral) Resp 17 Ht 157.5 cm (5' 2 ) Wt 69.4 kg(153 lb) SpO2 100% BMI 27.98 kg/m?? MDM Amount and/or Complexity of Data Reviewed Decide to obtain previous medical records or to obtain history from someone other than the patient:yes Patient is a 72 y.o. female with a PMHx of schizoaffective disorder, diabetic neuropathy, hypertension, GERD, dementia, CKD, who presents with worsening redness and swelling of right great toe. PEx as above. Non-toxic appearing. Vital signs stable. No hypoxia or tachypnea. No airway compromise or respiratory distress. Afebrile. X-ray showing erosive changes noted in the 1st digit distal tuft with associated irregularity of the soft tissue which may represent cellulitis with associated osteomyelitis. X-ray from August of thisyear showing no evidence of cellulitis or osteomyelitis therefore believe this is an acute change. Will plan to admit for IV antibiotics and treatment of osteomyelitis. Blood cultures ordered before ordering vancomycin and ceftriaxone. Labs obtained showing no leukocytosis with WBC at 9.6, electrolytes within normal limits. There is an elevation of BUN creatinine of 39 and 2.0 respectively which is patient's baseline. Discussed patient's case and current condition with hospitalist, Dr. Adames, who agrees to accept thepatient for admission. Recommends consult to podiatry and Infectious Disease. Recommends discontinuing ceftriaxone and rather placing patient on cefepime and Flagyl. Pertinent chart review conducted-- This examination was transcribed using the [employer] voice recognition system without human brood hatchery manager. In an effort to expedite patient care, this report has not been adjusted for typographical, grammatical, and syntax by a trained medical records tech. Close outpatient follow-up with a low threshold to return has been mandated , concerning symptoms have been emphasized in detail, and this patient expresses understanding Clinical Impression: Osteomyelitis of great toe of right foot (CMS/HCC) (HCC) Cellulitis of great toe of right foot Nadege Amezquita PA 11/06/22 180 Cosigned by Eliseo Cotto MD at 11/06/2022 10:59 PM CDT * Leslie Smith RN - 11/06/2022 11:32 AM CDT Images from the original note were not included. Arrives with daughter reports lower back/ flank pain, increased redness to R great toe wound and increased fatigue over past 1 week. Photo documentation obtained: Also included photo documentation from 10/[facility] documented in this encounter Miscellaneous Notes * Plan of Care - Lulú Jacome RN - 11/13/2022 4:46 PM CDT Goals: Clinical Goals for the Shift: safety, IV abx, comfort, discharge Summary: Pt given IV abx as ordered. Pt to discharge to SNF this evening. Pt rounded q2hrs and sat up in chair this afternoon Problem: Health Behavior: Goal: Understanding of discharge needs will improve Outcome: Completed Problem: Lack of Knowledge Goal: Knowledge of disease or condition will improve Outcome: Completed Problem: Lack of Knowledge: Goal: Ability to state ways to decrease the risk of falls will improve Outcome: Completed Problem: Safety: Goal: Will remain free from falls Outcome: Completed Goal: Will remain free from injury from falls Outcome: Completed Goal: Will remain free from falls and injury in home environment Outcome: Completed Problem: Activity: Goal: Mobility will improve Outcome: Completed * Plan of Care - Tim Castelan MSW - 11/13/2022 3:56 PM CDT DIAGNOSTIC IMAGING MANAGER called pt's daughter two times today. No answer, DIAGNOSTIC IMAGING MANAGER left a message both times with discharge details. * Plan of Care - Tim Castelan MSW - 11/13/2022 2:45 PM CDT DIAGNOSTIC IMAGING MANAGER spoke with Samy from [facility]. Per Samy, facility has a bed for pt today. [facility] Phone Numbers Report:[phone] Pharmacy: [facility] DIAGNOSTIC IMAGING MANAGER arranged EMS for 6pm. * Plan of Care - Tim Nicole MSW - 11/13/2022 11:31 AM CDT DIAGNOSTIC IMAGING MANAGER contacted Pt's daughter to inform her that the Pt will be discharge today, contingent on the daughter's approval of the accepting facility [facility] . DIAGNOSTIC IMAGING MANAGER provided direct contact information for facility to the daughter via confidential on-call text message. DIAGNOSTIC IMAGING MANAGER explained the IMM form to the daughter and offered to submit it via mail. Pt's daughter stated she is familiar with the form, from the last admitting. IMM was mailed to the home address. Pt's daughter request if the facility had a memory care unit, if so she would like the pt to be admitted to that unit. Pt's daughter approved the facility even if they do not the specialize unit. * Plan of Care - Tim Nicole MSW - 11/13/2022 11:26 AM CDT DIAGNOSTIC IMAGING MANAGER attempted to reach (Samy) at [facility], but no answer. Briefly voicemail was left requesting a call back and call back number; No Pt information was left. * Plan of Care - Tim Nicole MSW - 11/13/2022 11:00 AM CDT DIAGNOSTIC IMAGING MANAGER contacted Pt's daughter to inform her that the Pt will be discharge today, contingent on the daughter's approval of the accepting facility [facility] . DIAGNOSTIC IMAGING MANAGER provided direct contact information for facility to the daughter via confidential on-call text message. DIAGNOSTIC IMAGING MANAGER explained the IMM form to the daughter and offered to submit it via mail. Pt's daughter stated she is familiar with the form, from the last admitting. IMM was mailed to the home address. Pt's daughter request if the facility had a memory care unit, if so she would like the pt to be admitted to that unit. Pt's daughter approved the facility even if they do not the specialize unit. * Plan of Care - Tim Castelan MSW - 11/13/2022 9:00 AM CDT DIAGNOSTIC IMAGING MANAGER called Nicolas with [facility] today.No answer, DIAGNOSTIC IMAGING MANAGER left a message. DIAGNOSTIC IMAGING MANAGER inquiring if facility can accept pt. * Plan of Care - Abram Hampton - 11/13/2022 3:30 AM CDT Goals: Clinical Goals for the Shift: (safety, comfort, antibiotics) Summary: Problem: Health Behavior: Goal: Understanding of discharge [...] of Care - Tim Castelan MSW - 11/12/2022 3:52 PM CDT Per [employer], [facility] can accept pt. DIAGNOSTIC IMAGING MANAGER called pt's daughter,Areli today. No answer, DIAGNOSTIC IMAGING MANAGER left a message with details regarding SNF placement. DIAGNOSTIC IMAGING MANAGER unable to review IMM at this time with pt's daughter. * Plan of Care - Carolin Herr RN - 11/12/2022 3:13 PM CDT CM reviewed patient chart and will continue to follow medically. Patient discussed during DCAM. SW will continue to follow for d/c planning. Carolin Herr quarter lining smoother [phone] * Plan of Care - Tim Castelan MSW - 11/12/2022 3:05 PM CDT Referral sent to [facility] and [facility]. * Plan of Care - Peyton Mendez RN - 11/12/2022 3:00 PM CDT Goals: Clinical Goals for the Shift: Maintain stable VS, Labs, wound care, PICC today, saftey/comfort Summary: Problem: Health Behavior: Goal: Understanding of discharge [...] of Care - Tim Castelan MSW - 11/12/2022 2:41 PM CDT DIAGNOSTIC IMAGING MANAGER hasn't received any communication from [facility] and/or Elizabeth Rizzo at this time from [facility] or via phone. DIAGNOSTIC IMAGING MANAGER called [facility] and spoke with Natacha in Admissions. Per Natacha, unable to accept pt. DIAGNOSTIC IMAGING MANAGER inquired about a more specific reason and per Natacha, not able to take care of pt with psychiatric diagnosis. DIAGNOSTIC IMAGING MANAGER called [facility] today and left a message for Kathy Admission Coordinator. DIAGNOSTIC IMAGING MANAGER will continueto work on SNF placement. * Plan of Care - Tim Castelan MSW - 11/12/2022 8:42 AM CDT DIAGNOSTIC IMAGING MANAGER sent updated ID notes to facilities to see if they are able to accept pt. Awaiting to hear backfrom Elizabeth Rizzo and [facility]. * Plan of Care - Berta Abram - 11/12/2022 6:00 AM CDT Goals: Clinical Goals for the Shift: (safety, stable vitals and BG,) Summary: Problem: Health Behavior: Goal: Understanding of discharge [...] Outcome: Progressing * Plan of Care - Peyton Mendez RN - 11/11/2022 4:56 PM CDT Goals: Clinical Goals for the Shift: Maintain stable VS, Labs, wound care, PICC today, saftey/comfort Summary: Problem: Health Behavior: Goal: Understanding of discharge [...] to fullest extent possible Outcome: Progressing * [facility] Note - Tim Castelan MSW - 11/11/2022 3:09 PM CDT Images from the original note were not included. Patient Information: Patient Header Patient Information Patient Name: SIXTO CHAKRABORTY Date of 1950 (72 years) Sex: Female Phone Numbers: Home: , Meds and Admin Active Only All Meds/Most Recent Administrations All Meds/Most Recent Administrations vancomycin 1,750 mg/517.5 mL sodium chloride 0.9% (premix) 1,750 mg [[id number]] Ordering Provider: Nadege Amezquita PA Status: Completed (Past End Date/Time) Ordered On: 11/06/221626 Starts/Ends: 11/06/221699 - 11/06/222010 Ordered Dose (Remaining/Total): 25 mg/kg (0/1) Route: intravenous Frequency: Once Ordered Rate/Order Duration: -- / 120 Minutes Line Med Link Info Comment Peripheral IV 11/06/22 20 G Anterior;Right Forearm 11/06/221730 by Leslie Smith RN -- Timestamps Action Dose / Duration Route Other Information 11/06/221730 New Bag 1,750 mg 120 Minutes intravenous Performed by: Leslie Smith RN Scanned Package: 37168-908-01, 2634-1844-39 metroNIDAZOLE (FLAGYL) 500 mg/100 mL in sodium chloride (premix) 500 mg [[id number]] Ordering Provider: Nadege Amezquita PA Status: Dispensed Ordered On: 11/06/221718 Start: 11/06/221719 Ordered Dose (Remaining/Total): 500 mg (--/--) Route: intravenous Frequency: Every 8 hours scheduled Ordered Rate/Order Duration: 200 mL/hr / 30 Minutes Admin Instructions: Room temperature only Line Med Link Info Comment Peripheral IV 11/06/22 20 G Anterior;Right Forearm 11/06/222237 by Leslie Milligan RN -- Peripheral IV 11/09/22 20 G Anterior;Right Forearm 11/10/22 170 by Sixto Fisher RN -- Timestamps Action Dose / Rate / Duration Route Other Information 11/11/22 140 New Bag 500 mg 200 mL/hr 30 Minutes intravenous Performed by: Peyton Mendez RN Scanned Package: 9349-2895-01 albuterol HFA (PROVENTIL HFA,VENTOLIN HFA,PROAIR HFA) 90 mcg/actuation inhaler 2 puff [[id number]] Ordering Provider: Rosa Jade NP Status: Verified Ordered On: 11/07/22124 Start: 11/07/22 013 Ordered Dose (Remaining/Total): 2 puff (--/--) Route: inhalation Frequency: Every 4 hours PRN (cyber incident responder) Ordered Rate/Order Duration: -- / -- (No admins scheduled or recorded for this medication) atorvastatin (LIPITOR) tablet 20 mg [[id number]] Ordering Provider: Rosa Jade NP Status: Dispensed Ordered On: 11/07/22124 Start: 11/07/22 09 Ordered Dose (Remaining/Total): 20 mg (--/--) Route: oral Frequency: Daily Ordered Rate/Order Duration: -- / -- Timestamps Action Dose Route Other Information 11/11/22921 Given 20 mg oral Performed by: Peyton Mendez RN Scanned Package: 3124-0170-91 benztropine (COGENTIN) tablet 1.5 mg [[id number]] Ordering Provider: Rosa Jade NP Status: Dispensed Ordered On: 11/07/22124 Start: 11/07/22199 Ordered Dose (Remaining/Total): 1.5 mg (--/--) Route: oral Frequency: Nightly Ordered Rate/Order Duration: -- / -- Timestamps Action Dose Route Other Information 11/10/222123 Given 1.5 mg oral Performed by: Yelena Cook RN Scanned Package: 22524-854-31, 81168-124-27 famotidine (PEPCID) tablet 10 mg [[id number]] Ordering Provider: Rosa Jade NP Status: Dispensed Ordered On: 11/07/22124 Start: 11/07/22 2100 Ordered Dose (Remaining/Total): 10 mg (--/--) Route: oral Frequency: Nightly Ordered Rate/Order Duration: -- / -- Timestamps Action Dose Route Other Information 11/10/222123 Given 10 mg oral Performed by: Yelena Cook RN Scanned Package: 42951-175-52 polyethylene glycol (MIRALAX) packet 17 g [[id number]] Ordering Provider: Wheat, Rosa J., SUMAC TANNER Status: Verified Ordered On: 11/07/22124 Start: 11/07/22124 Ordered Dose (Remaining/Total): 17 g (--/--) Route: oral Frequency: Daily PRN Ordered Rate/Order Duration: -- / -- (No admins scheduled or recorded for this medication) risperiDONE (RisperDAL) tablet 2 mg [[id number]] Ordering Provider: Rosa Jade NP Status: Dispensed Ordered On: 11/07/22124 Start: 11/07/222099 Ordered Dose (Remaining/Total): 2 mg (--/--) Route: oral Frequency: Nightly Ordered Rate/Order Duration: -- / -- Timestamps Action Dose Route Other Information 11/10/222123 Given 2 mg oral Performed by: Yelena Cook RN Scanned Package: 50766-434-91 pregabalin (LYRICA) capsule 150 mg [[id number]] Ordering Provider: Robert Hrenandez MD Status: Dispensed Ordered On: 11/07/22125 Start: 11/07/222099 Ordered Dose (Remaining/Total): 150 mg (--/--) Route: oral Frequency: Nightly Ordered Rate/Order Duration: -- / -- Timestamps Action Dose Route Other Information 11/10/222123 Given 150 mg oral Performed by: Yelena Cook RN Scanned Package: 18884-158-14, 44050-788-27 ondansetron (ZOFRAN) injection 4 mg [[id number]] Ordering Provider: Rosa Jade NP Status: Verified Ordered On: 11/07/22126 Start: 11/07/22125 Ordered Dose (Remaining/Total): 4 mg (--/--) Route: intravenous Frequency: Every 6 hours PRN Ordered Rate/Order Duration: -- / 2 Minutes (No admins scheduled or recorded for this medication) acetaminophen (TYLENOL) tablet 650 mg [[id number]] Ordering Provider: Rosa Jade NP Status: Verified Ordered On: 11/07/22126 Start: 11/07/22125 Ordered Dose (Remaining/Total): 650 mg (--/--) Route: oral Frequency: Every 4 hours PRN Ordered Rate/Order Duration: -- / -- (No admins scheduled or recorded for this medication) dextrose oral liquid liquid 15 g [[id number]] Ordering Provider: Rosa Jade NP Status: Verified Ordered On: 11/07/22126 Start: 11/07/22126 Ordered Dose (Remaining/Total): 15 g (--/--) Route: [...] medication) dextrose (D10W) 10% bolus 250 mL [[id number]] Ordering Provider: Rosa Jade NP Status: Verified Ordered On: 11/07/22126 Start: 11/07/22126 Ordered Dose (Remaining/Total): 250 mL (--/--) Route: intravenous Frequency: Every 15 min PRN Ordered Rate/Order Duration: 1,000 mL/hr / 15 Minutes Admin Instructions: After treatment for hypoglycemia, recheck BG followed by treatment every 15 minutes until the BG is greater than 100 mg/dL. Then check BG 1 hour post treatment. If BG is less aieg821 mg/dL, repeat Q15 minute BG checks and treatment. Call MD for each episode of hypoglycemia. (No admins scheduled or recorded for this medication) glucagon injection 1 mg [[id number]] Ordering Provider: Rosa Jade NP Status: Verified Ordered On: 11/07/22126 Start: 11/07/22126 Ordered Dose (Remaining/Total): 1 mg (--/--) Route: [...] admins scheduled or recorded for this medication) oxyCODONE (ROXICODONE) tablet 5 mg [[id number]] Ordering Provider: Larry Dennis MD Status: Verified Ordered On: 11/07/22 114 Start: 11/07/221140 Ordered Dose (Remaining/Total): 5 mg (--/--) Route: oral Frequency: Every 4 hours PRN Ordered Rate/Order Duration: -- / -- (No admins scheduled or recorded for this medication) aluminum-magnesium hydroxide-simethicone (MAALOX) 40-40-4 mg/mL oral suspension 30 mL [[id number]] Ordering Provider: Larry Dennis MD Status: Verified Ordered On: 11/07/221140 Start: 11/07/22 114 Ordered Dose (Remaining/Total): 30 mL (--/--) Route: oral Frequency: Every 4 hours PRN Ordered Rate/Order Duration: -- / -- (No admins scheduled or recorded for this medication) enoxaparin (LOVENOX) syringe 30 mg [[id number]] Ordering Provider: Larry Dennis MD Status: Dispensed Ordered On: 11/07/22 114 Start: 11/07/222099 Ordered Dose (Remaining/Total): 30 mg (--/--) Route: subcutaneous Frequency: Daily (for enoxaparin) Ordered Rate/Order Duration: -- / -- Timestamps Action Dose Route / Site Other Information 11/10/222122 Given 30 mg subcutaneous Left Upper Arm Performed by: Yelena Cook RN Scanned Package: 7605-6144-22 vancomycin 1,000 mg/200 mL in dextrose 5% (premix) 1,000 mg [[id number]] Ordering Provider: Nadege Amezquita PA Status: Dispensed (Past End Date/Time) Ordered On: 11/07/22 253 Starts/Ends: 11/07/22 1800 - 11/08/22 1815 Ordered Dose (Remaining/Total): 15 mg/kg (06/22) Route: intravenous Frequency: Once Ordered Rate/Order Duration: -- / 60 Minutes (No admins scheduled or recorded for this medication) insulin glargine (LANTUS, SEMGLEE) 100 unit/mL injection 17 Units [[id number]] Ordering Provider: Rosa Jade NP Status: Dispensed Ordered On: 11/07/221948 Start: 11/07/22 2100 Ordered Dose (Remaining/Total): 0.25 Units/kg (--/--) Route: subcutaneous Frequency: Nightly Ordered Rate/Order Duration: -- / -- Admin Instructions: Do not hold if NPO. Do not mix with other insulins Timestamps Action Dose Route / Site Other Information 11/10/222137 Given 17 Units subcutaneous Left Upper Arm Performed by: Yelena Cook RN Scanned Package: 29085-226-89 insulin lispro (HumaLOG, ADMELOG) 100 unit/mL injection 6 Units [[id number]] Ordering Provider: Rosa Jade NP Status: Dispensed Ordered On: 11/07/221948 Start: 11/08/22 0800 Ordered Dose (Remaining/Total): 0.083 Units/kg (--/--) Route: [...] Action Dose Route / Site Other Information 11/11/22 1409 Given 6 Units subcutaneous Right Upper Arm Performed by: Peyton Mendez RN Scanned Package: 5357-2693-72 insulin lispro (HumaLOG, ADMELOG) 100 unit/mL injection 0-10 Units [[id number]] Ordering Provider: Rosa Jade NP Status: Dispensed Ordered On: 11/07/221948 Start: 11/08/22 0800 Ordered Dose (Remaining/Total): 0-10 Units (--/--) [...] Action Dose Route / Site Other Information 11/11/22 1409 Given 2 Units subcutaneous Right Upper Arm Performed by: Peyton Mendez RN Scanned Package: 8531-3891-43 insulin lispro (HumaLOG, ADMELOG) 100 unit/mL injection 0-5 Units [[id number]] Ordering Provider: Rosa Jade NP Status: Dispensed Ordered On: 11/07/221948 Start: 11/07/22 2100 Ordered Dose (Remaining/Total): 0-5 Units (--/--) [...] Action Dose Route / Site Other Information 11/10/222137 Given 1 Units subcutaneous Left Upper Arm Performed by: Yelena Cook RN Scanned Package: 6443-4792-50 losartan (COZAAR) tablet 100 mg [[id number]] Ordering Provider: Rosa Jade NP Status: Dispensed Ordered On: 11/08/221945 Start: 11/09/22 0900 Ordered Dose (Remaining/Total): 100 mg (--/--) Route: oral Frequency: Daily Ordered Rate/Order Duration: -- / -- Timestamps Action Dose Route Other Information 11/11/22 0921 Given 100 mg oral Performed by: Peyton Mendez RN Scanned Package: 34903-665-80, 47275-258-40 losartan (COZAAR) tablet 50 mg [[id number]] Ordering Provider: Rosa Jade NP Status: Completed (Past End Date/Time) Ordered On: 11/08/221949 Starts/Ends: 11/08/222029 - 11/08/222113 Ordered Dose (Remaining/Total): 50 mg (0/1) Route: oral Frequency: Once Ordered Rate/Order Duration: -- / -- Timestamps Action Dose Route Other Information 11/08/222113 Given 50 mg oral Performed by: Marie Jaimes RN Scanned Package: 90211-442-76 vancomycin 1,000 mg/200 mL in dextrose 5% (premix) 1,000 mg [[id number]] Ordering Provider: Gill Gamboa MD Status: Completed (Past End Date/Time) Ordered On: 11/09/22 1152 Starts/Ends: 11/09/22 1230 - 11/09/22 1328 Ordered Dose (Remaining/Total): 15 mg/kg (0/1) Route: intravenous Frequency: Once Ordered Rate/Order Duration: -- / 60 Minutes Timestamps Action Dose / Duration Route Other Information 11/09/22 1228 New Bag 1,000 mg 60 Minutes intravenous Performed by: Marilyn Boykin Scanned Package: 6263-0786-40 vancomycin 1,000 mg/200 mL in dextrose 5% (premix) 1,000 mg [[id number]] Ordering Provider: En Chaudhary MD Status: Completed (Past End Date/Time) Ordered On: 11/10/22 0946 Starts/Ends: 11/10/22 1030 - 11/10/22 1402 Ordered Dose (Remaining/Total): 15 mg/kg (0/1) Route: intravenous Frequency: Once Ordered Rate/Order Duration: -- / 60 Minutes Line Med Link Info Comment Peripheral IV 11/09/22 20 G Anterior;Right Forearm 11/10/22 1302 by Sixto Fisher RN -- Timestamps Action Dose / Duration Route Other Information 11/10/22 1302 New Bag 1,000 mg 60 Minutes intravenous Performed by: Sixto Fisher RN carvediloL (COREG) tablet 12.5 mg [[id number]] Ordering Provider: Larry Dennis MD Status: Dispensed Ordered On: 11/10/221427 Start: 11/10/22 1800 Ordered Dose (Remaining/Total): 12.5 mg (--/--) Route: oral Frequency: 2 times daily with meals (bkfst, dinner) Ordered Rate/Order Duration: -- / -- Timestamps Action Dose Route Other Information 11/11/22 0922 Given 12.5 mg oral Performed by: Peyton Mendez RN Scanned Package: 5286-9738-94 amLODIPine (NORVASC) tablet 5 mg [[id number]] Ordering Provider: Larry Dennis MD Status: Dispensed Ordered On: 11/10/221427 Start: 11/10/22 2100 Ordered Dose (Remaining/Total): 5 mg (--/--) Route: oral Frequency: Nightly Ordered Rate/Order Duration: -- / -- Timestamps Action Dose Route Other Information 11/10/224 Given 5 mg oral Performed by: Yelena Cook RN Scanned Package: 35283-807-46 vancomycin 1,000 mg/200 mL in dextrose 5% (premix) 1,000 mg [[id number]] Ordering Provider: Krishna Morgan MD Status: Dispensed Ordered On: 11/11/22 1122 Starts/Ends: 11/11/22 1400 - 11/12/22 1400 Ordered Dose (Remaining/Total): 15 mg/kg (0/1) Route: intravenous Frequency: Once Ordered Rate/Order Duration: -- / 60 Minutes Line Med Link Info Comment PICC Single Lumen 11/11/22 Non-tunneled Power Left Brachial;Upper arm 11/11/22 142 by Peyton Mendez RN -- Timestamps Action Dose / Duration Route Other Information 11/11/22 1420 New Bag 1,000 mg 60 Minutes intravenous Performed by: Peyton Mendez RN , Wound Info Only Active Wound Assessment Active Wound / Pressure ulcer / Morgan / Negative Pressure Wound / Incision Wound 09/04/22 Anterior;Right Toe (Comment which one) black/blue with yellow discharge Date First Assessed 09/04/22 Site Toe (Comment which one) Time First Assessed 1130 Days 68 Location Orientation: Anterior;Right Wound Description (Comments): black/blue with yellow discharge Assessments Row Name 11/11/22 0800 11/10/224 Wound Status Evolving Evolving Site Assessment Dry Red;Dry Yenny-wound Assessment Dry;Calloused Dry Drainage Amount None None Dressing Status Open to Air Open to Air , Vitals Info Only Vital Signs 11/10 0711/11 0659 11/11 0711/11 1509 Most Recent Temp (??C) 36.6 - 37.3 36.5 - 36.7 36.7 (98.1) 11/11 1509 Pulse 62 - 97 64 64 11/11 1509 Resp 16 - 18 15 - 17 17 11/11 1509 SpO2 (%) 96 - 98 92 - 98 98 11/11 1509 BP 135/55 - 197/83 130/54 - 142/69 130/54 11/11 1509 MAP (mmHg) 89 86 86 11/11 0736 , Oxygen Info Only Default Flowsheet Data (most recent) Endurance Tests No documentation. Default Flowsheet Data (last 48 hours) Oxygen Row Name 11/11/22 15:09:18 11/11/22 0800 11/11/22 07:36:28 11/10/22 2350 11/10/22 2239 Oxygen Therapy/Pulse Ox O2 Therapy None (Room air) None (Room air) None (Room air) -- -- SpO2 98 % -- 92 % 98 % 98 % Patient Activity -- At rest -- -- -- Row Name 11/10/22200411/10/22 1946 11/10/22 1513 11/10/22 0810 11/10/22 07:55:57 Oxygen Therapy/Pulse Ox O2 Therapy -- -- -- None (Room air) -- SpO2 97 % 97 % 97 % -- 96 % Row Name 11/10/22 02:17:20 11/09/22199911/09/22 1524 Oxygen Therapy/Pulse Ox O2 Therapy None (Room air) -- -- SpO2 97 % 98 % 99 % * Plan of Care - Tim Castelan MSW - 11/11/2022 2:20 PM CDT DIAGNOSTIC IMAGING MANAGER called pt's daughter today to follow up with discharge planning. DIAGNOSTIC IMAGING MANAGER advised pt's daughter thatpt doesn't meet criteria for [facility] at this time. Pt's daughter is agreeable to SNF placement. Pt'kamaljit stated that she will like for DIAGNOSTIC IMAGING MANAGER to send a referral to [facility] and [facility]. DIAGNOSTIC IMAGING MANAGER started referral process with those above mentioned facilities. DIAGNOSTIC IMAGING MANAGER will continue to follow-up. * Initial Assessments - Carolin Herr RN - 11/11/2022 11:19 AM CDT CM Initial Assessment Interview Note Information Obtained From: Adult child Name: Areli Gayle (daughter) [phone] (11/11/22 110) Admission Source: ED Impression: Cellulitis of Right great toe Plan Includes: c/s Podiatry and ID, IV abx Primary Source of Transportation: patient daughter provides transportation Does the patient need discharge transport arranged?: No (11/11/221102) Health Insurance Coverage: Medicare A and B/ Medicaid Prescription Coverage: yes Pharmacy: [id number] - [place], [place] - [address] [place] [address] [address] [facility] [id number] Primary Care Provider: Duane Corcoran MD Prior to Admission: Primary Caregiver: Self Who does the patient or legal guardian want to receive education instruction and discharge plans for after care assistance?: Name Caregiver Name: Areli Gayle (daughter) [phone] Relationship to patient: Daughter Caregiver Contact Information: [phone] Caregiver Address: same as patient Support System: Children Support system contact info (name, phone, availablity): Areli Gayle (daughter) [phone] Home Care Services: Yes 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 and 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: 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 Durable Medical Equipment: Shower chair, Walker (wheeled) Living Arrangements: Children Type of Residence: Private residence Steps in home?: Yes, Outside of home Number of steps outside: 2 steps (11/06/222003) SDOH: Transportation: In the past 12 months, has lack of transportation kept you from medical appointments or from getting medications?: No In the past 12 months, has lack of transportation kept you from meetings, work, or from getting things needed for daily living?: No (11/11/221114) Financial Resource: How hard is it for you to pay for the very basics like food, housing, medical care, and heating?: Not hard at all (11/11/221114) Housing: In the last 12 months, was there a time when you were not able to pay the mortgage or rent on time?: No In the last 12 months, how many places have you lived?: 1 In the last 12 months, was there a time when you did not have a steady place to sleep or slept in ashelter (including now)?: No (11/11/221114) Social Connections: In a typical week, how many times do you talk on the phone with family, friends, or neighbors?: More than three times a week How often do you get together with friends or relatives?: More than three times a week How often do you attend adventist or orthodoxy services?: More than 4 times per year Do you belong to any clubs or organizations such as adventist groups, unions, fraternal or athletic groups, or school groups?: No How often do you attend meetings of the clubs or organizations you belong to?: Never Are you , , , , never , or living with a partner?: (11/11/221114) Food Insecurity: Within the past 12 months, you worried that your food would run out before you got the money to buymore.: Never true Within the past 12 months, the food you bought just didn't last and you didn't have money to get more.: Never true (11/11/221114) Alcohol Use: PHQ Screening Potential discharge needs include: SNF vs LTACH Dialysis: N/A Behavioral Health Services: Behavioral Health Services: No (11/11/221102) Patient expects to be Discharged to: Private residence, (11/11/221102) Additional Information: CM called patient daughter Areli ([phone]) to discuss plan of care, anticipated discharge date, and goals for discharge. Demographics verified via face sheet. Patient lives at home with her daughter Areli who is named as her family day carer. Patient daughter Areli isher primary before and after school daycare worker, she assist with all of her ADL's. 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 Patient has a shower chair, walker and a bed rail at home. Patient uses [facility] and is able to afford her medications. Patient daughter provides all of her transportation. Goal is pending juanill need 6 weeks of IV abx. Patient daughter works during the day so she is at home alone sometimes during the day. Will continue to discuss d/c planning with family. Patient does not meet critera for LTACH. SDOH complete. CM will continue to follow and assist with discharge planning as needed. Patient's Identified Problem/Goal Problem: Ensure acute medical [...] Collaboration with patient, MD, direct care nurse, Freight Loader, and other members of the health care team to assure needed interventions completed. 2. Return patient to optimal level of self-care post discharge. 3. Under Water Assistant will follow for Discharge Planning - interventions as needed 4. Anticipated level of care at discharge 5. Planned Discharge Disposition Carolin Herr RN Case Manager [phone] * Plan of Care - Carolin Herr RN - 11/10/2022 12:34 PM CDT Attempted to complete initial d/c planning. TYLER RN call patient 2 daughters that are listed. No answer. Left a general [facility] for a call back. Carolin Herr quarter lining smoother [phone] * Plan of Care - Sixto Fisher RN - 11/10/2022 8:15 AM CDT Goals: Clinical Goals for the Shift: monitor vitals and safety Summary: Problem: Health Behavior: Goal: Understanding of discharge [...] appropriate dietary choices will improve Outcome: Progressing * Plan of Pee - Lucinda Bearden RN - 11/09/2022 9:24 PM CDT Goals: Clinical Goals for the Shift: safety,comfort,pain control,medication,stable vss Summary: Problem: Health Behavior: Goal: Understanding of discharge [...] Outcome: Progressing * Plan of Pee - Marilyn Boykin - 11/09/2022 9:55 AM CDT Goals: Clinical Goals for the Shift: stable VS, monitor labs, monitor BG, care and safety, keep comfortable Problem: Safety: Goal: Will remain free from falls Outcome: Progressing Problem: Activity: Goal: Mobility will improve Outcome: Progressing Problem: Nutritional: Goal: Dietary intake will improve Outcome: Progressing Problem: Nutritional: Goal: Ability to maintain a balanced intake and output will improve Outcome: Progressing Problem: Skin Integrity: Goal: Ability to demonstrate warm and dry skin will improve Outcome: Progressing Problem: Skin Integrity: Goal: Circulation will improve to fullest extent possible Outcome: Progressing * Estefany of Pee - Marie Jaimes RN - 11/09/2022 6:58 AM CDT Goals: Clinical Goals for the Shift: Monitor VS, BG, tolerate turns and maintain patient safety Problem: Health Behavior: Goal: Understanding of discharge [...] improve to fullest extent possible Outcome: Progressing Summary: Pt was reoriented during the shift, multiple attempts to get out of bed,BP slightly elevated, med administered and patient safety maintained * Plan of Care - Marilyn Boykin - 11/08/2022 10:20 AM CDT Goals: Clinical Goals for the Shift: stable VS, care and safety, keep comfortable Problem: Safety: Goal: Will remain free from falls Outcome: Progressing Problem: Activity: Goal: Mobility will improve Outcome: Progressing Problem: Lack of Knowledge: Goal: Ability to identify appropriate dietary choices will improve Outcome: Progressing Problem: Lack of Knowledge: Goal: Understanding of ways to prevent future skin breakdown will improve Outcome: Progressing Problem: Skin Integrity: Goal: Circulation will improve to fullest extent possible Outcome: Progressing * Plan of Care - Leslie Milligan RN - 11/08/2022 3:06 AM CDT Goals: Clinical Goals for the Shift: safety and comfort, free from falls, administer medications, poct glucose, rest Summary: Reminded patient to call for assistance to promote safety and prevent falls. Patient remained free from falls throughout shift. Administered medications per orders. Monitored patient's poct glucose per orders. Promoted patient rest. Patient is currently sleeping and stable. Will continue to monitor. * Plan of Care - Sheila Rivera RN - 11/07/2022 7:15 PM CDT Goals: Clinical Goals for the Shift: admission, safety and comfort, free from falls, administer medications, rest Summary: Problem: Health Behavior: Goal: Understanding of discharge [...] Outcome: Progressing * Plan of Care - Carolin Herr RN - 11/07/2022 2:50 PM CDT Attempted to complete initial d/c planning. Patient is off the unit. Will re- attempt as time allows. Carolin Herr RN Case Manager [phone] * Plan of Care - Leslie Milligan RN - 11/07/2022 3:41 AM CDT Goals: Clinical Goals for the Shift: admission, safety and comfort, free from falls, administer medications, rest Summary: Admitted patient to unit and gave patient handouts regarding unit rules. Reminded patient to call for assistance to promote safety and prevent falls. Patient remained free from falls throughout shift. Administered medications to patient per orders. Monitored patient's poct glucose per orders. Promoted patient rest. Patient is currently sleeping and stable. Will continue to monitor. documented in this encounter Plan of Treatment Upcoming Encounters Date Type Department Care Team (Latest Contact Info) Description 07/13/2024 9:00 AM RESEARCH AGRICULTURAL ENGINEER Hospital Encounter [facility] [address] [place] [address] Jaya Grier MD [address] [place] [address] 07/13/2024 9:00 AM RESEARCH AGRICULTURAL ENGINEER - 07/13/2024 9:30 AM RESEARCH AGRICULTURAL ENGINEER Surgery [facility] [address] [place] [address] Jaya Grier MD [address] [place] [address] ESOPHAGOGASTRODUODENOSCOPY Scheduled Procedures Name Priority Associated Diagnoses Date/Ti me ESOPHAGOGASTRODUODENOSCOPY Anemia, unspecified type Gastritis without bleeding, unspecified chronicity, unspecified gastritis type 07/13/2024 9:00 AM RESEARCH AGRICULTURAL ENGINEER COLONOSCOPY Iron deficiency anemia due to chronic blood loss documented as of this encounter Procedures Procedure Name Priority Date/Time Associated Diagnosis Comments POCT GLUCOSE DEVICE Routine 11/13/2022 4 :55 PM CDT POCT GLUCOSE DEVICE Routine 11/13/2022 1 2:08 PM CDT VANCOMYCIN LEVEL TROUGH Timed 11/13/2022 10:29 AM CDT POCT GLUCOSE DEVICE Routine 11/13/2022 7 :51 AM CDT POCT GLUCOSE DEVICE Routine 11/13/2022 2 :08 AM CDT POCT GLUCOSE DEVICE Routine 11/12/2022 7 :56 PM CDT POCT GLUCOSE DEVICE Routine 11/12/2022 5 :10 PM CDT POCT GLUCOSE DEVICE Routine 11/12/2022 1 2:14 PM CDT POCT GLUCOSE DEVICE Routine 11/12/2022 7 :42 AM CDT EGFR Routine 11/12/2022 5:52 AM CDT DIFFERENTIAL AUTO Routine 11/12/2022 5:5 2 AM CDT CBC WITH AUTO DIFFERENTIAL Routine 11/12/2022 5:52 AM CDT MAGNESIUM Routine 11/12/2022 5:52 AM CDT BASIC METABOLIC PANEL Routine 11/12/2022 5:52 AM CDT POCT GLUCOSE DEVICE Routine 11/12/2022 2 :17 AM CDT POCT GLUCOSE DEVICE Routine 11/11/2022 7 :56 PM CDT POCT GLUCOSE DEVICE Routine 11/11/2022 5 :49 PM CDT POCT GLUCOSE DEVICE Routine 11/11/2022 2 :01 PM CDT VANCOMYCIN LEVEL RANDOM Timed 11/11/2022 10:22 AM CDT POCT GLUCOSE DEVICE Routine 11/11/2022 7 :50 AM CDT EGFR Routine 11/11/2022 4:47 AM CDT DIFFERENTIAL AUTO Routine 11/11/2022 4:4 7 AM CDT CBC WITH AUTO DIFFERENTIAL Routine 11/11/2022 4:47 AM CDT MAGNESIUM Routine 11/11/2022 4:47 AM CDT BASIC METABOLIC PANEL Routine 11/11/2022 4:47 AM CDT POCT GLUCOSE DEVICE Routine 11/11/2022 1 :50 AM CDT POCT GLUCOSE DEVICE Routine 11/10/2022 9 :26 PM CDT POCT GLUCOSE DEVICE Routine 11/10/2022 1:01 PM CDT EGFR Routine 11/10/2022 6:57 AM CDT DIFFERENTIAL AUTO Routine 11/10/2022 6:5 7 AM CDT CBC WITH AUTO DIFFERENTIAL Routine 11/10/2022 6:57 AM CDT MAGNESIUM Routine 11/10/2022 6:57 AM CDT VANCOMYCIN LEVEL RANDOM Timed 11/10/2022 6:57 AM CDT BASIC METABOLIC PANEL Routine 11/10/2022 6:57 AM CDT POCT GLUCOSE DEVICE Routine 11/10/2022 2 :16 AM CDT POCT GLUCOSE DEVICE Routine 11/09/2022 9 :17 PM CDT POCT GLUCOSE DEVICE Routine 11/09/2022 5 :38 PM CDT POCT GLUCOSE DEVICE Routine 11/09/2022 1 2:33 PM CDT EGFR Routine 11/09/2022 10:50 AM CDT DIFFERENTIAL AUTO Routine 11/09/2022 10: 50 AM CDT CBC WITH AUTO DIFFERENTIAL Routine 11/09/2022 10:50 AM CDT MAGNESIUM Routine 11/09/2022 10:50 AM CDT VANCOMYCIN LEVEL RANDOM Timed 11/09/2022 10:50 AM CDT BASIC METABOLIC PANEL Routine 11/09/2022 10:50 AM CDT POCT GLUCOSE DEVICE Routine 11/09/2022 7 :28 AM CDT POCT GLUCOSE DEVICE Routine 11/09/2022 2 :04 AM CDT POCT GLUCOSE DEVICE Routine 11/08/2022 9 :04 PM CDT POCT GLUCOSE DEVICE Routine 11/08/2022 5 :41 PM CDT AEROBIC AND ANAEROBIC CULTURE AND GRAM STAIN Routine 11/08/2022 4:48 PM CDT MRI FOOT RIGHT WO CONTRAST IP Routine 11/08/2022 3:58 PM CDT POCT GLUCOSE DEVICE Routine 11/08/2022 1 2:11 PM CDT EGFR Routine 11/08/2022 11:16 AM CDT DIFFERENTIAL AUTO Routine 11/08/2022 11: 16 AM CDT CBC WITH AUTO DIFFERENTIAL Routine 11/08/2022 11:16 AM CDT MAGNESIUM Routine 11/08/2022 11:16 AM CDT BASIC METABOLIC PANEL Routine 11/08/2022 11:16 AM CDT POCT GLUCOSE DEVICE Routine 11/08/2022 7 :48 AM CDT POCT GLUCOSE DEVICE Routine 11/08/2022 2 :08 AM CDT POCT GLUCOSE DEVICE Routine 11/07/2022 9 :34 PM CDT POCT GLUCOSE DEVICE Routine 11/07/2022 5 :29 PM CDT VANCOMYCIN LEVEL RANDOM Timed 11/07/2022 4:35 PM CDT US TEO IP Routine 11/07/2022 3:51 PM CDT US ARTERIAL DUPLEX LOWER EXTREMITY RIGHT LIMITED IP Routine 11/07/2022 3:29 PM CDT POCT GLUCOSE DEVICE Routine 11/07/2022 1 2:05 PM CDT POCT GLUCOSE DEVICE Routine 11/07/2022 7 :49 AM CDT EGFR Routine 11/07/2022 5:33 AM CDT DIFFERENTIAL AUTO Routine 11/07/2022 5:3 3 AM CDT CBC WITH AUTO DIFFERENTIAL Routine 11/07/2022 5:33 AM CDT MAGNESIUM Routine 11/07/2022 5:33 AM CDT BASIC METABOLIC PANEL Routine 11/07/2022 5:33 AM CDT POCT GLUCOSE DEVICE Routine 11/07/2022 3 :04 AM CDT BLOOD CULTURE STAT 11/06/2022 5:20 PM CDT BLOOD CULTURE STAT 11/06/2022 5:[address] HEAD WO CONTRAST ED 11/06/2022 5 :06 PM CDT URINALYSIS AND REFLEX TO MICROSCOPIC AND CULTURE STAT 11/06/2022 3:21 PM CDT URINALYSIS, MICROSCOPIC ONLY STAT 11/06/2022 3:21 PM CDT URINE CULTURE STAT 11/06/2022 3:21 PM CDT DIFFERENTIAL AUTO STAT 11/06/2022 1:3 5 PM CDT CBC WITH AUTO DIFFERENTIAL STAT 11/06/2022 1:35 PM CDT EGFR STAT 11/06/2022 1:34 PM CDT COMPREHENSIVE METABOLIC PANEL STAT 11/06/2022 1:34 PM CDT XR TOE GREAT RIGHT ED 11/06/2022 12 :11 PM CDT documented in this encounter Results * POCT glucose (11/13/2022 4:55 PM CDT) Glucose, POC 187 70 - 199 mg/dL [facility] Blood 11/13/2022 4:55 PM CDT 11/13/2022 4:55 PM CDT [facility] POCT ORDERABLES - ROSE CE Final Result Performing Organization Address City/[facility]/ZIP Co de Phone Number NILSA [address] [place] [address] * POCT glucose (11/13/2022 12:08 PM CDT) Glucose, POC 162 70 - 199 mg/dL [facility] Blood 11/13/2022 12:0 8 PM CDT 11/13/2022 12:08 PM CDT [facility] POCT ORDERABLES - ROSE CE Final Result Performing Organization Address City/[facility]/ZIP Co de Phone Number CARLOS ENRIQUEELLEN [address] [facility] [place] [address] * Vancomycin level trough Draw trough 30 minutes prior to 4th dose. (11/13/2022 10:29 AM CDT) Vancomycin trough 18.2 10.0 - 20.0 mcg/mL [facility] Blood 11/13/2022 10:2 9 AM CDT 11/13/2022 10:40 AM CDT Narrative [facility] - 11/13/2022 11:16 AM CDT Draw trough 30 minutes prior to 4th dose. Krishna Morgan MD LAB BLOOD ORDERABLES Final Resu lt Performing Organization Address City/[facility]/ZIP Co de Phone Number NILSA MCDONNELL [address] [facility] [place] [address] * POCT glucose (11/13/2022 7:51 AM CDT) Glucose, POC 198 70 - 199 mg/dL [facility] Blood 11/13/2022 7:51 AM CDT 11/13/2022 7:51 AM CDT Cristóbal Gould LAB POCT ORDERABLES - ROSE CE Final Result Performing Organization Address [facility] Co de Phone Number NILSA MCDONNELL [address] [place] [address] * (ABNORMAL) POCT glucose (11/13/2022 2:08 AM CDT) Glucose, POC 250(H) 70 - 199 mg/dL [facility] Blood 11/13/2022 2:08 AM CDT 11/13/2022 2:08 AM CDT Cristóbal Gould [facility] POCT ORDERABLES - ROSE CE Final Result Performing Organization Address [facility] Co de Phone Number CARLOS ENRIQUEELLEN MCDONNELL [address] [place] [address] * (ABNORMAL) POCT glucose (11/12/2022 7:56 PM CDT) Glucose, POC 227(H) 70 - 199 mg/dL [facility] Blood 11/12/2022 7:56 PM CDT 11/12/2022 7:56 PM CDT Cristóbal Gould LAB POCT ORDERABLES - ROSE CE Final Result Performing Organization Address [facility] Co de Phone Number NILSA MCDONNELL [address] [address] [facility] [place] [address] * (ABNORMAL) POCT glucose (11/12/2022 5:10 PM CDT) Glucose, POC 221(H) 70 - 199 mg/dL [facility] Blood 11/12/2022 5:10 PM CDT 11/12/2022 5:10 PM CDT [facility] POCT ORDERABLES - ROSE CE Final Result CARLOS ENRIQUEELLEN [address] [address] [facility] [place] [address] * POCT glucose (11/12/2022 12:14 PM CDT) Glucose, POC 128 70 - 199 mg/dL [facility] Blood 11/12/2022 12:1 4 PM CDT 11/12/2022 12:14 PM CDT [facility] POCT ORDERABLES - ROSE CE Final Result Performing Organization Address City/[facility]/ZIP Co de Phone Number CARLOS ENRIQUEELLEN [address] [address] [facility] [place] [address] * POCT glucose (11/12/2022 7:42 AM CDT) Glucose, POC 189 70 - 199 mg/dL [facility] Blood 11/12/2022 7:42 AM CDT 11/12/2022 7:42 AM CDT [facility] POCT ORDERABLES - ROSE CE Final Result Performing Organization Address City/[facility]/ZIP Co de Phone Number NILSA MCDONNELL [address] [address] [facility] [place] [address] * eGFR (11/12/2022 5:52 AM CDT) eGFR 24 mL/min/1. 73 m2 [facility] Comment: Interpretive Data Reference Interval Normal [...] interpretive data was last reviewed 2021. Blood 11/12/2022 5:52 AM CDT 11/12/2022 6:28 AM CDT us Rosa Jade [facility] LAB BLOOD ORDERABLES Final Res ult NILSA MCDONNELL [address] [place] [address] * Differential, auto (11/12/2022 5:52 AM CDT) Neutrophil abs 5.4 1.7 - 6.5 K/cumm [facility] Imm gran abs 0.0 0.0 - 0.1 K/cumm [facility] Lymphocyte abs 2.7 0.8 - 3.3 K/cumm [facility] Monocyte abs 0.6 0.2 - 0.8 K/cumm [facility] Eosinophil abs 0.2 0.0 - 0.5 K/cumm [facility] Basophil abs 0.0 0.0 - 0.1 K/cumm [facility] Neutrophil pct 59.3 % [facility] Comment: Interpretive Data Percent cell count reference ranges are not reported, since discordance with absolute values may lead to misinterpretation of CBC data. Current Interpretive Data was last revised on 2017. Imm gran pct 0.4 % [facility] Comment: Interpretive Data Percent cell count reference ranges are not reported, since discordance with absolute values may lead to misinterpretation of CBC data. Current Interpretive Data was last revised on 2017. Lymphocyte pct 30.4 % [facility] Comment: Interpretive Data Percent cell count reference ranges are not reported, since discordance with absolute values may lead to misinterpretation of CBC data. Current Interpretive Data was last revised on 2017. Monocyte pct 6.8 % [facility] Comment: Interpretive Data Percent cell count reference ranges are not reported, since discordance with absolute values may lead to misinterpretation of CBC data. Current Interpretive Data was last revised on 2017. Eosinophil pct 2.7 % [facility] Comment: Interpretive Data Percent cell count reference ranges are not reported, since discordance with absolute values may lead to misinterpretation of CBC data. Current Interpretive Data was last revised on 2017. Basophil pct 0.4 % [facility] Comment: Interpretive Data Percent cell count reference ranges are not reported, since discordance with absolute values may lead to misinterpretation of CBC data. Current Interpretive Data was last revised on 2017. Blood 11/12/2022 5:52 AM CDT 11/12/2022 6:28 AM CDT us Rosa Jade NP LAB BLOOD ORDERABLES Final Res ult NILSA [address] [address] [place] [address] * (ABNORMAL) CBC with auto differential (11/12/2022 5:52 AM CDT) WBC 9.0 3.8 - 9.9 K/cumm [facility] Hgb 8.1(L) 11.9 - 15.5 g/dL [facility] Hct 27.2(L) 35.6 - 45.5 % [facility] Plt 279 150 - 400 K/cumm [facility] MPV 11.3 9.1 - 12.3 fL [facility] RBC 2.74(L) 3.90 - 5.20 M/cumm [facility] MCV 99.3(H) 81.3 - 96.4 fL [facility] MCH 29.6 27.1 - 33.3 pg [facility] MCHC 29.8(L) 32.3 - 35.7 g/dL [facility] RDW CV 15.9(H) 11.1 - 14.9 % [facility] RDW SD 57.7(H) 35.7 - 48.1 fL [facility] NRBC abs 0.00 0.00 - 0.01 K/cumm [facility] Blood 11/12/2022 5:52 AM CDT 11/12/2022 6:28 AM CDT us Rosa Jade [facility] LAB BLOOD ORDERABLES Final Res ult [facility] [address] [place] [address] * (ABNORMAL) Basic metabolic panel (11/12/2022 5:52 AM CDT) Sodium 138 135 - 145 mmol/L [facility] Potassium, pl 4.4 3.3 - 4.9 mmol/L [facility] Chloride 110 97 - 110 mmol/L [facility] CO2 19(L) 22 - 32 mmol/L [facility] Anion gap 9 2 - 15 mmol/L [facility] BUN 41(H) 8 - 25 mg/dL [facility] Creatinine 2.15(H) 0.60 - 1.10 mg/dL [facility] Glucose 208(H) 70 - 199 mg/dL [facility] Comment: [...] 2022. Calcium 8.1(L) 8.5 - 10.3 mg/dL [facility] Blood 11/12/2022 5:52 AM CDT 11/12/2022 6:28 AM CDT Rosa Jade NP LAB BLOOD ORDERABLES Final Res ult Performing Organization Address [facility] Co de Phone Number NILSA MCDONNELL [address] [address] [facility] [place] [address] * Magnesium (11/12/2022 5:52 AM CDT) Magnesium 2.0 1.4 - 2.5 mg/dL [facility] Blood 11/12/2022 5:52 AM CDT 11/12/2022 6:28 AM CDT Rosa Jade NP LAB BLOOD ORDERABLES Final Res ult Performing Organization Address [facility] de Phone Number NILSA MCDONNELL [address] [facility] [place] [address] * (ABNORMAL) POCT glucose (11/12/2022 2:17 AM CDT) Glucose, POC 206(H) 70 - 199 mg/dL [facility] Blood 11/12/2022 2:17 AM CDT 11/12/2022 2:17 AM CDT Larry Dennis MD LAB POCT ORDERABLES - DEVICE Fi nal Result Performing Organization Address [facility] Co de Phone Number NILSA [address] [address] [facility] [address], [place] [id number] * (ABNORMAL) POCT glucose (11/11/2022 7:56 PM CDT) Glucose, POC 223(H) 70 - 199 mg/dL [facility] Blood 11/11/2022 7:56 PM CDT 11/11/2022 7:56 PM CDT Larry Dennis MD LAB POCT ORDERABLES - DEVICE Fi nal Result Performing Organization Address [facility] Co de Phone Number [facility] [address] [address] [facility] [place] [address] * (ABNORMAL) POCT glucose (11/11/2022 5:49 PM CDT) Glucose, POC 238(H) 70 - 199 mg/dL [facility] Blood 11/11/2022 5:49 PM CDT 11/11/2022 5:49 PM CDT Larry Dennis MD LAB POCT ORDERABLES - DEVICE Fi nal Result Performing Organization Address [facility] Co de Phone Number [facility] [address] [address] [facility] [place], [place] [id number] * POCT glucose (11/11/2022 2:01 PM CDT) Glucose, POC 178 70 - 199 mg/dL [facility] Blood 11/11/2022 2:01 PM CDT 11/11/2022 2:01 PM CDT Larry Dennis MD LAB POCT ORDERABLES - DEVICE Fi nal Result Performing Organization Address [facility] Co de Phone Number [facility] [address] [address] [facility] [address], [place] [id number] * Vancomycin level random (11/11/2022 10:22 AM CDT) Vancomycin random 20.6 mcg/mL [facility] Comment: Interpretive Data No reference ranges have been established for random drug levels. Current Interpretive Data was last revised on 2020. Blood 11/11/2022 10:2 2 AM CDT 11/11/2022 10:33 AM CDT En Chaudhary MD LAB BLOOD ORDERABLES Fin al Result Performing Organization Address [facility] de Phone Number [facility] [address] [address] [facility] [place] [address] * POCT glucose (11/11/2022 7:50 AM CDT) Glucose, POC 118 70 - 199 mg/dL NILSA Blood 11/11/2022 7:50 AM CDT 11/11/2022 7:50 AM CDT Larry Dennis MD LAB POCT ORDERABLES - DEVICE Fi nal Result Performing Organization Address [facility] Phone Number [facility] [address] [place] [address] * eGFR (11/11/2022 4:47 AM CDT) eGFR 26 mL/min/1. 73 m2 NILSA Comment: Interpretive Data [...] interpretive data was last reviewed 2021. Blood 11/11/2022 4:47 AM CDT 11/11/2022 5:34 AM CDT us Rosa Jade NP LAB BLOOD ORDERABLES Final Res ult [facility] [address] [place] [address] * Differential, auto (11/11/2022 4:47 AM CDT) Neutrophil abs 4.7 1.7 - 6.5 K/cumm [facility] Imm gran abs 0.0 0.0 - 0.1 K/cumm [facility] Lymphocyte abs 2.5 0.8 - 3.3 K/cumm [facility] Monocyte abs 0.7 0.2 - 0.8 K/cumm [facility] Eosinophil abs 0.3 0.0 - 0.5 K/cumm [facility] Basophil abs 0.1 0.0 - 0.1 K/cumm [facility] Neutrophil pct 57.4 % [facility] Comment: Interpretive Data Percent cell count reference ranges are not reported, since discordance with absolute values may lead to misinterpretation of CBC data. Current Interpretive Data was last revised on 2017. Imm gran pct 0.2 % [facility] Comment: Interpretive Data Percent cell count reference ranges are not reported, since discordance with absolute values may lead to misinterpretation of CBC data. Current Interpretive Data was last revised on 2017. Lymphocyte pct 30.3 % [facility] Comment: Interpretive Data Percent cell count reference ranges are not reported, since discordance with absolute values may lead to misinterpretation of CBC data. Current Interpretive Data was last revised on 2017. Monocyte pct 8.2 % [facility] Comment: Interpretive Data Percent cell count reference ranges are not reported, since discordance with absolute values may lead to misinterpretation of CBC data. Current Interpretive Data was last revised on 2017. Eosinophil pct 3.3 % [facility] Comment: Interpretive Data Percent cell count reference ranges are not reported, since discordance with absolute values may lead to misinterpretation of CBC data. Current Interpretive Data was last revised on 2017. Basophil pct 0.6 % [facility] Comment: Interpretive Data Percent cell count reference ranges are not reported, since discordance with absolute values may lead to misinterpretation of CBC data. Current Interpretive Data was last revised on 2017. Blood 11/11/2022 4:47 AM CDT 11/11/2022 5:35 AM CDT us Rosa Jade NP LAB BLOOD ORDERABLES Final Res ult [facility] [address] [address] [place] [address] * (ABNORMAL) CBC with auto differential (11/11/2022 4:47 AM CDT) WBC 8.2 3.8 - 9.9 K/cumm [facility] Hgb 8.3(L) 11.9 - 15.5 g/dL [facility] Hct 27.7(L) 35.6 - 45.5 % [facility] Plt 283 150 - 400 K/cumm [facility] MPV 11.1 9.1 - 12.3 fL [facility] RBC 2.81(L) 3.90 - 5.20 M/cumm [facility] MCV 98.6(H) 81.3 - 96.4 fL [facility] MCH 29.5 27.1 - 33.3 pg [facility] MCHC 30.0(L) 32.3 - 35.7 g/dL [facility] RDW CV 15.6(H) 11.1 - 14.9 % [facility] RDW SD 56.3(H) 35.7 - 48.1 fL [facility] NRBC abs 0.00 0.00 - 0.01 K/cumm [facility] Blood 11/11/2022 4:47 AM CDT 11/11/2022 5:35 AM CDT Rosa Jade [facility] LAB BLOOD ORDERABLES Final Res ult Performing Organization Address [facility]/ZIP Co de Phone Number NILSA MCDONNELL [address] [address] [place] [address] * (ABNORMAL) Basic metabolic panel (11/11/2022 4:47 AM CDT) [facility] Sodium 144 135 - 145 mmol/L [facility] Potassium, pl 4.4 3.3 - 4.9 mmol/L [facility] Chloride 114(H) 97 - 110 mmol/L [facility] CO2 19(L) 22 - 32 mmol/L [facility] Anion gap 11 2 - 15 mmol/L [facility] BUN 32(H) 8 - 25 mg/dL [facility] Creatinine 2.01(H) 0.60 - 1.10 mg/dL [facility] Glucose 122 70 - 199 mg/dL [facility] Comment: [...] Calcium 8.5 8.5 - 10.3 mg/dL [facility] Blood 11/11/2022 4:47 AM CDT 11/11/2022 5:34 AM CDT Rosa Jade [facility] LAB BLOOD ORDERABLES Final Res ult Performing Organization Address [facility] Co de Phone Number NILSA MCDONNELL [address] [place] [address] * Magnesium (11/11/2022 4:47 AM CDT) Magnesium 2.1 1.4 - 2.5 mg/dL [facility] Blood 11/11/2022 4:47 AM CDT 11/11/2022 5:34 AM CDT Rosa Jade [facility] LAB BLOOD ORDERABLES Final Res ult Performing Organization Address [facility] Co de Phone Number [facility] [address] [place] [address] * POCT glucose (11/11/2022 1:50 AM CDT) Glucose, POC 160 70 - 199 mg/dL [facility] Blood 11/11/2022 1:50 AM CDT 11/11/2022 1:50 AM CDT Larry Dennis MD LAB POCT ORDERABLES - DEVICE Fi nal Result Performing Organization Address [facility] de Phone Number [facility] [address] [address] [facility] [place] [address] * POCT glucose (11/10/2022 9:26 PM CDT) Glucose, POC 197 70 - 199 mg/dL [facility] Blood 11/10/2022 9:26 PM CDT 11/10/2022 9:26 PM CDT Larry Dennis MD LAB POCT ORDERABLES - DEVICE Fi nal Result Performing Organization Address [facility] de Phone Number [facility] [address] [address] [facility] [place] [address] * (ABNORMAL) POCT glucose (11/10/2022 1:01 PM CDT) Glucose, POC 207(H) 70 - 199 mg/dL [facility] Blood 11/10/2022 1:01 PM CDT 11/10/2022 1:01 PM CDT us Larry Dennis MD LAB POCT ORDERABLES - DEVICE Fi nal Result Performing Organization Address [facility] Co de Phone Number NILSA MCDONNELL [address] [address] [place] [address] * eGFR (11/10/2022 6:57 AM CDT) [facility] eGFR 27 mL/min/1. 73 m2 NILSA Comment: Interpretive Data [...] interpretive data was last reviewed 2021. Blood 11/10/2022 6:57 AM CDT 11/10/2022 8:10 AM CDT us Rosa Jade NP LAB BLOOD ORDERABLES Final Res ult Performing Organization Address [facility] Co de Phone Number NILSA MCDONNELL [address] [address] [place] [address] * Differential, auto (11/10/2022 6:57 AM CDT) Neutrophil abs 5.3 1.7 - 6.5 K/cumm [facility] Imm gran abs 0.0 0.0 - 0.1 K/cumm [facility] Lymphocyte abs 2.2 0.8 - 3.3 K/cumm [facility] Monocyte abs 0.7 0.2 - 0.8 K/cumm [facility] Eosinophil abs 0.3 0.0 - 0.5 K/cumm [facility] Basophil abs 0.0 0.0 - 0.1 K/cumm [facility] Neutrophil pct 62.1 % [facility] Comment: Interpretive Data Percent cell count reference ranges are not reported, since discordance with absolute values may lead to misinterpretation of CBC data. Current Interpretive Data was last revised on 2017. Imm gran pct 0.4 % [facility] Comment: Interpretive Data Percent cell count reference ranges are not reported, since discordance with absolute values may lead to misinterpretation of CBC data. Current Interpretive Data was last revised on 2017. Lymphocyte pct 25.9 % [facility] Comment: Interpretive Data Percent cell count reference ranges are not reported, since discordance with absolute values may lead to misinterpretation of CBC data. Current Interpretive Data was last revised on 2017. Monocyte pct 7.7 % [facility] Comment: Interpretive Data Percent cell count reference ranges are not reported, since discordance with absolute values may lead to misinterpretation of CBC data. Current Interpretive Data was last revised on 2017. Eosinophil pct 3.4 % [facility] Comment: Interpretive Data Percent cell count reference ranges are not reported, since discordance with absolute values may lead to misinterpretation of CBC data. Current Interpretive Data was last revised on 2017. Basophil pct 0.5 % [facility] Comment: Interpretive Data Percent cell count reference ranges are not reported, since discordance with absolute values may lead to misinterpretation of CBC data. Current Interpretive Data was last revised on 2017. Blood 11/10/2022 6:57 AM CDT 11/10/2022 8:10 AM CDT us Rosa J. Wheat [facility] LAB BLOOD ORDERABLES Final Res ult Performing Organization Address [facility] Co de Phone Number NILSA MCDONNELL [address] [place] [address] * (ABNORMAL) CBC with auto differential (11/10/2022 6:57 AM CDT) WBC 8.6 3.8 - 9.9 K/cumm [facility] Hgb 8.4(L) 11.9 - 15.5 g/dL [facility] Hct 27.9(L) 35.6 - 45.5 % [facility] Plt 311 150 - 400 K/cumm [facility] MPV 11.2 9.1 - 12.3 fL [facility] RBC 2.87(L) 3.90 - 5.20 M/cumm [facility] MCV 97.2(H) 81.3 - 96.4 fL [facility] MCH 29.3 27.1 - 33.3 pg [facility] MCHC 30.1(L) 32.3 - 35.7 g/dL [facility] RDW CV 15.5(H) 11.1 - 14.9 % [facility] RDW SD 55.1(H) 35.7 - 48.1 fL [facility] NRBC abs 0.00 0.00 - 0.01 K/cumm [facility] Blood 11/10/2022 6:57 AM CDT 11/10/2022 8:10 AM CDT Rosa Jade [facility] LAB BLOOD ORDERABLES Final Res ult Performing Organization Address [facility]/ZIP Co de Phone Number NILSA MCDONNELL [address] [place] [address] * (ABNORMAL) Basic metabolic panel (11/10/2022 6:57 AM CDT) Sodium 143 135 - 145 mmol/L [facility] Potassium, pl 4.3 3.3 - 4.9 mmol/L [facility] Chloride 112(H) 97 - 110 mmol/L [facility] CO2 21(L) 22 - 32 mmol/L [facility] Anion gap 10 2 - 15 mmol/L [facility] BUN 29(H) 8 - 25 mg/dL [facility] Creatinine 1.93(H) 0.60 - 1.10 mg/dL [facility] Glucose 161 70 - 199 mg/dL [facility] Comment: Interpretive Data Fasting glucose >/= [...] 2022. Calcium 8.8 8.5 - 10.3 mg/dL [facility] Blood 11/10/2022 6:57 AM CDT 11/10/2022 8:10 AM CDT Rosa Jade NP LAB BLOOD ORDERABLES Final Res ult Performing Organization Address [facility] Co de Phone Number [facility] [address] [employer] [place] [address] * Magnesium (11/10/2022 6:57 AM CDT) Magnesium 2.0 1.4 - 2.5 mg/dL [facility] Blood 11/10/2022 6:57 AM CDT 11/10/2022 8:10 AM CDT Rosa Jade NP LAB BLOOD ORDERABLES Final Res ult Performing Organization Address [facility] Co de Phone Number [facility] [address] [address] [facility] [place] [address] * Vancomycin level random (11/10/2022 6:57 AM CDT) Vancomycin random 17.5 mcg/mL [facility] Comment: Interpretive Data No reference ranges have been established for random drug levels. Current Interpretive Data was last revised on 2020. Blood 11/10/2022 6:57 AM CDT 11/10/2022 8:10 AM CDT Narrative [facility] - 11/10/2022 9:07 AM CDT Draw level 24 hours after dose. us Gill Gamboa MD LAB BLOOD ORDERABLES Final Re sult Performing Organization Address [facility] Co de Phone Number NILSA MCDONNELL [address] [address] [facility] [place] [address] * (ABNORMAL) POCT glucose (11/10/2022 2:16 AM CDT) Glucose, POC 230(H) 70 - 199 mg/dL [facility] Blood 11/10/2022 2:16 AM CDT 11/10/2022 2:16 AM CDT us Gill Gamboa MD LAB POCT ORDERABLES - DEVICE Final Result Performing Organization Address [facility] de Phone Number CARLOS ENRIQUEELLEN MCDONNELL [address] [address] [facility] [place] [address] * (ABNORMAL) POCT glucose (11/09/2022 9:17 PM CDT) Glucose, POC 219(H) 70 - 199 mg/dL [facility] Blood 11/09/2022 9:17 PM CDT 11/09/2022 9:17 PM CDT us Gill Gamboa MD LAB POCT ORDERABLES - DEVICE Final Result Performing Organization Address [facility] de Phone Number NILSA MCDONNELL [address] [address] [facility] [place], [place] [id number] * (ABNORMAL) POCT glucose (11/09/2022 5:38 PM CDT) Glucose, POC 266(H) 70 - 199 mg/dL [facility] Blood 11/09/2022 5:38 PM CDT 11/09/2022 5:38 PM CDT Gill Gamboa MD LAB POCT ORDERABLES - DEVICE Final Result Performing Organization Address [facility]/ZIP Co de Phone Number NILSA [address] [address] [facility] [place] [address] * POCT glucose (11/09/2022 12:33 PM CDT) Glucose, POC 160 70 - 199 mg/dL [facility] Blood 11/09/2022 12:3 3 PM CDT 11/09/2022 12:33 PM CDT Gill Gamboa MD LAB POCT ORDERABLES - DEVICE Final Result Performing Organization Address [facility] Co de Phone Number NILSA [address] [address] [facility] [place] [address] * eGFR (11/09/2022 10:50 AM CDT) eGFR 29 mL/min/1. 73 m2 NILSA Comment: Interpretive Data [...] interpretive data was last reviewed 2021. Blood 11/09/2022 10:5 0 AM CDT 11/09/2022 10:54 AM CDT us Rosa Jade [facility] LAB BLOOD ORDERABLES Final Res ult [facility] [address] [place] [address] * Differential, auto (11/09/2022 10:50 AM CDT) Neutrophil abs 5.6 1.7 - 6.5 K/cumm [facility] Imm gran abs 0.0 0.0 - 0.1 K/cumm [facility] Lymphocyte abs 2.0 0.8 - 3.3 K/cumm [facility] Monocyte abs 0.6 0.2 - 0.8 K/cumm [facility] Eosinophil abs 0.3 0.0 - 0.5 K/cumm [facility] Basophil abs 0.1 0.0 - 0.1 K/cumm [facility] Neutrophil pct 65.8 % [facility] Comment: Interpretive Data Percent cell count reference ranges are not reported, since discordance with absolute values may lead to misinterpretation of CBC data. Current Interpretive Data was last revised on 2017. Imm gran pct 0.4 % [facility] Comment: Interpretive Data Percent cell count reference ranges are not reported, since discordance with absolute values may lead to misinterpretation of CBC data. Current Interpretive Data was last revised on 2017. Lymphocyte pct 23.2 % [facility] Comment: Interpretive Data Percent cell count reference ranges are not reported, since discordance with absolute values may lead to misinterpretation of CBC data. Current Interpretive Data was last revised on 2017. Monocyte pct 6.9 % [facility] Comment: Interpretive Data Percent cell count reference ranges are not reported, since discordance with absolute values may lead to misinterpretation of CBC data. Current Interpretive Data was last revised on 2017. Eosinophil pct 3.1 % [facility] Comment: Interpretive Data Percent cell count reference ranges are not reported, since discordance with absolute values may lead to misinterpretation of CBC data. Current Interpretive Data was last revised on 2017. Basophil pct 0.6 % [facility] Comment: Interpretive Data Percent cell count reference ranges are not reported, since discordance with absolute values may lead to misinterpretation of CBC data. Current Interpretive Data was last revised on 2017. Blood 11/09/2022 10:5 0 AM CDT 11/09/2022 10:54 AM CDT us Rosa Jade [facility] LAB BLOOD ORDERABLES Final Res ult [facility] [address] [place] [address] * (ABNORMAL) CBC with auto differential (11/09/2022 10:50 AM CDT) WBC 8.5 3.8 - 9.9 K/cumm [facility] Hgb 8.7(L) 11.9 - 15.5 g/dL [facility] Hct 28.5(L) 35.6 - 45.5 % [facility] Plt 317 150 - 400 K/cumm [facility] MPV 10.8 9.1 - 12.3 fL [facility] RBC 2.95(L) 3.90 - 5.20 M/cumm [facility] MCV 96.6(H) 81.3 - 96.4 fL [facility] MCH 29.5 27.1 - 33.3 pg [facility] MCHC 30.5(L) 32.3 - 35.7 g/dL [facility] RDW CV 15.5(H) 11.1 - 14.9 % [facility] RDW SD 55.2(H) 35.7 - 48.1 fL [facility] NRBC abs 0.00 0.00 - 0.01 K/cumm [facility] Blood 11/09/2022 10:5 0 AM CDT 11/09/2022 10:54 AM CDT Rosa Jade [facility] LAB BLOOD ORDERABLES Final Res ult NILSA MCDONNELL [address] [place] [address] * (ABNORMAL) Basic metabolic panel (11/09/2022 10:50 AM CDT) Pathologist [facility] Sodium 144 135 - 145 mmol/L [facility] Potassium, pl 4.3 3.3 - 4.9 mmol/L [facility] Chloride 111(H) 97 - 110 mmol/L [facility] CO2 23 22 - 32 mmol/L [facility] Anion gap 10 2 - 15 mmol/L [facility] BUN 28(H) 8 - 25 mg/dL [facility] Creatinine 1.85(H) 0.60 - 1.10 mg/dL [facility] Glucose 183 70 - 199 mg/dL [facility] Comment: Interpretive Data Fasting glucose >/= [...] 2022. Calcium 8.6 8.5 - 10.3 mg/dL [facility] Blood 11/09/2022 10:5 0 AM CDT 11/09/2022 10:54 AM CDT Rosa Jade [facility] LAB BLOOD ORDERABLES Final Res ult Performing Organization Address City/[facility]/ZIP Co de Phone Number NILSA MCDONNELL [address] [place] [address] * Magnesium (11/09/2022 10:50 AM CDT) Magnesium 1.9 1.4 - 2.5 mg/dL [facility] Blood 11/09/2022 10:5 0 AM CDT 11/09/2022 10:54 AM CDT Rosa Jade [facility] LAB BLOOD ORDERABLES Final Res ult Performing Organization Address [facility] Co de Phone Number [facility] [address] [place] [address] * Vancomycin level random (11/09/2022 10:50 AM CDT) Vancomycin random 12.0 mcg/mL [facility] Comment: Interpretive Data No reference ranges have been established for random drug levels. Current Interpretive Data was last revised on 2020. Blood 11/09/2022 10:5 0 AM CDT 11/09/2022 10:54 AM CDT Nadege Amezquita PA LAB BLOOD ORDERABLES Final Res ult Performing Organization Address [facility] Co de Phone Number CARLOS ENRIQUEELLEN [address] [facility] [place] [address] * POCT glucose (11/09/2022 7:28 AM CDT) Glucose, POC 153 70 - 199 mg/dL [facility] Blood 11/09/2022 7:28 AM CDT 11/09/2022 7:28 AM CDT Gill Gamboa MD LAB POCT ORDERABLES - DEVICE Final Result Performing Organization Address [facility] Co de Phone Number [facility] [address] [address] [facility] [place] [address] * POCT glucose (11/09/2022 2:04 AM CDT) Glucose, POC 180 70 - 199 mg/dL [facility] Blood 11/09/2022 2:04 AM CDT 11/09/2022 2:04 AM CDT Larry Dennis MD LAB POCT ORDERABLES - DEVICE Fi nal Result Performing Organization Address [facility] de Phone Number CARLOS ENRIQUEELLEN MCDONNELL [address] [address] [facility] [place] [address] * POCT glucose (11/08/2022 9:04 PM CDT) Glucose, POC 154 70 - 199 mg/dL [facility] Blood 11/08/2022 9:04 PM CDT 11/08/2022 9:04 PM CDT Larry Dennis MD LAB POCT ORDERABLES - DEVICE Fi nal Result Performing Organization Address [facility] de Phone Number NILSA MCDONNELL [address] [place] [address] * POCT glucose (11/08/2022 5:41 PM CDT) Glucose, POC 191 70 - 199 mg/dL [facility] Blood 11/08/2022 5:41 PM CDT 11/08/2022 5:41 PM CDT Larry Dennis MD LAB POCT ORDERABLES - DEVICE Fi nal Result Performing Organization Address [facility] de Phone Number CARLOS ENRIQUEELLEN [address] [place] [address] * (ABNORMAL) Aerobic and anaerobic culture and gram stain Wound Toe (11/08/2022 4:48 PM CDT) Direct Specimen Exam Stain: No polymorphonuclear leukocytes seen. Rare Gram Positive Bacilli NILSA MCDONNELL Comment:Testing performed by : [facility], [address] [facility], [place]., [address] Report Final Report: Abundant Mixed Gram-positive microorganisms Includes the following: Few Staphylococcus aureus Methicillin resistant (MRSA) by penicillin binding protein 2a (PBP2a) testing. (.) NILSA MCDONNELL Comment:Testing performed by : [facility], [address] [place]., [address] Organism STAPHYLOCOCCUS AUREUS NILSA Organism MIXED GRAM POSITIVE MICROORGANISMS NILSA Wound (Toe) 11/08/2022 4:48 PM CDT 11/08/2022 11:15 PM CDT Narrative NILSA - 11/16/2022 1:58 PM CDT Testing performed by [facility] Microbiology Laboratory ([phone]) Specimens submitted from normally sterile body sites [...] INTERPRETATION Resistant Staphylococcus aureus Ceftriaxone INTERPRETATION Resistant Krishna Morgan MD LAB MICROBIOLOGY - GENERAL ORDE [facility] Final Result [facility] [address] Department [place] [address] * MRI Foot Right WO Contrast (11/08/2022 3:58 PM CDT) Anatomical Region Laterality Modality Lower Extremities Right Magnetic Reson ance 11/08/2022 8:18 PM CDT Impressions 11/08/2022 8:58 PM CDT 1. ??Distal right great toe wound with osteomyelitis of the distal phalanx and small erosions of the distal tuft. Dictated by: Radha Bell M.D. The radiology attending physician has personally reviewed this study, and had reviewed and/or edited this written report and agrees with it. Electronically signed by: Weston Kasper MD, PHD Narrative 11/08/2022 8:58 PM CDT EXAMINATION: MRI FOOT RIGHT WO CONTRAST HISTORY: Right great toe wound. ??Evaluating for osteomyelitis TECHNIQUE: Multiplanar multisequence MR examination of the right foot was performed without contrast . ?? COMPARISON: Right foot radiographs 11/06/2022. FINDINGS: There is soft tissue swelling involving the right great toe with a distal wound. ??There is are small sites of erosion involving the great toe distal tuft with associated marrow edema extending into the distal phalanx base. ??No drainable fluid collection. ??There has been prior application of the 4th digit through the metatarsal neck. There is subcutaneous edema about the ankle and along the dorsum of the foot. ??Mild first metatarsophalangeal joint chondrosis. ??There is subacute on chronic denervation of intrinsic foot musculature. ??There is tendinopathy of the distal Achilles tendon. Procedure Note Weston Kasper MD PhD - 11/08/2022 EXAMINATION: MRI FOOT RIGHT WO CONTRAST HISTORY: [...] by: Radha Bell M.D. The radiology attending physician has personally reviewed this study, and had reviewed and/or edited this written report and agrees with it. Electronically signed by: Weston Kasper MD, PHD Krishna Morgan MD [facility] MRI PROCEDURES Final Result * (ABNORMAL) POCT glucose (11/08/2022 12:11 PM CDT) Glucose, POC 223(H) 70 - 199 mg/dL NILSA Blood 11/08/2022 12:1 1 PM CDT 11/08/2022 12:11 PM CDT us Larry Dennis MD LAB POCT ORDERABLES - DEVICE Fi nal Result NILSA [address] Department [place] [address] * eGFR (11/08/2022 11:16 AM CDT) eGFR 28 mL/min/1. 73 m2 NILSA MCDONNELL Comment: Interpretive [...] interpretive data was last reviewed 2021. Blood 11/08/2022 11:1 6 AM CDT 11/08/2022 12:16 PM CDT us Rosa Jade NP LAB BLOOD ORDERABLES Final Res ult NILSA [address] [place] [address] * Differential, auto (11/08/2022 11:16 AM CDT) Neutrophil abs 4.9 1.7 - 6.5 K/cumm [facility] Imm gran abs 0.0 0.0 - 0.1 K/cumm [facility] Lymphocyte abs 1.9 0.8 - 3.3 K/cumm [facility] Monocyte abs 0.6 0.2 - 0.8 K/cumm [facility] Eosinophil abs 0.2 0.0 - 0.5 K/cumm [facility] Basophil abs 0.0 0.0 - 0.1 K/cumm [facility] Neutrophil pct 64.6 % [facility] Comment: Interpretive Data Percent cell count reference ranges are not reported, since discordance with absolute values may lead to misinterpretation of CBC data. Current Interpretive Data was last revised on 2017. Imm gran pct 0.3 % [facility] Comment: Interpretive Data Percent cell count reference ranges are not reported, since discordance with absolute values may lead to misinterpretation of CBC data. Current Interpretive Data was last revised on 2017. Lymphocyte pct 24.9 % [facility] Comment: Interpretive Data Percent cell count reference ranges are not reported, since discordance with absolute values may lead to misinterpretation of CBC data. Current Interpretive Data was last revised on 2017. Monocyte pct 7.4 % [facility] Comment: Interpretive Data Percent cell count reference ranges are not reported, since discordance with absolute values may lead to misinterpretation of CBC data. Current Interpretive Data was last revised on 2017. Eosinophil pct 2.4 % [facility] Comment: Interpretive Data Percent cell count reference ranges are not reported, since discordance with absolute values may lead to misinterpretation of CBC data. Current Interpretive Data was last revised on 2017. Basophil pct 0.4 % [facility] Comment: Interpretive Data Percent cell count reference ranges are not reported, since discordance with absolute values may lead to misinterpretation of CBC data. Current Interpretive Data was last revised on 2017. Blood 11/08/2022 11:1 6 AM CDT 11/08/2022 12:16 PM CDT Rosa Jade [facility] LAB BLOOD ORDERABLES Final Res ult Performing Organization Address [facility]/ZIP Co de Phone Number NILSA [address] [place] [address] * (ABNORMAL) CBC with auto differential (11/08/2022 11:16 AM CDT) WBC 7.5 3.8 - 9.9 K/cumm [facility] Hgb 8.9(L) 11.9 - 15.5 g/dL [facility] Hct 29.5(L) 35.6 - 45.5 % [facility] Plt 298 150 - 400 K/cumm [facility] MPV 10.8 9.1 - 12.3 fL [facility] RBC 2.98(L) 3.90 - 5.20 M/cumm [facility] MCV 99.0(H) 81.3 - 96.4 fL [facility] MCH 29.9 27.1 - 33.3 pg [facility] MCHC 30.2(L) 32.3 - 35.7 g/dL [facility] RDW CV 15.9(H) 11.1 - 14.9 % [facility] RDW SD 57.4(H) 35.7 - 48.1 fL [facility] NRBC abs 0.00 0.00 - 0.01 K/cumm [facility] Blood 11/08/2022 11:1 6 AM CDT 11/08/2022 12:16 PM CDT Rosa Jade [facility] LAB BLOOD ORDERABLES Final Res ult Performing Organization Address [facility]/ZIP Co de Phone Number NILSA MCDONNELL [address] Department of [place], [place] [id number] * (ABNORMAL) Basic metabolic panel (11/08/2022 11:16 AM CDT) Sodium 144 135 - 145 mmol/L [facility] Potassium, pl 4.1 3.3 - 4.9 mmol/L [facility] Chloride 110 97 - 110 mmol/L [facility] CO2 24 22 - 32 mmol/L [facility] Anion gap 10 2 - 15 mmol/L [facility] BUN 29(H) 8 - 25 mg/dL [facility] Creatinine 1.91(H) 0.60 - 1.10 mg/dL [facility] Glucose 222(H) 70 - 199 mg/dL [facility] Comment: [...] 2022. Calcium 8.8 8.5 - 10.3 mg/dL [facility] Blood 11/08/2022 11:1 6 AM CDT 11/08/2022 12:16 PM CDT us Rosa Jade NP LAB BLOOD ORDERABLES Final Res ult Performing Organization Address [facility] de Phone Number [facility] [address] [place] [address] * Magnesium (11/08/2022 11:16 AM CDT) Magnesium 2.0 1.4 - 2.5 mg/dL [facility] Blood 11/08/2022 11:1 6 AM CDT 11/08/2022 12:16 PM CDT Rosa Jade NP LAB BLOOD ORDERABLES Final Res ult Performing Organization Address [facility]/ZIP Co de Phone Number NILSA MCDONNELL [address] [facility] [place] [address] * POCT glucose (11/08/2022 7:48 AM CDT) Glucose, POC 154 70 - 199 mg/dL [facility] Blood 11/08/2022 7:48 AM CDT 11/08/2022 7:48 AM CDT Larry Dennis MD LAB POCT ORDERABLES - DEVICE Fi nal Result Performing Organization Address [facility] Co de Phone Number NILSA MCDONNELL [address] [facility] [place] [address] * (ABNORMAL) POCT glucose (11/08/2022 2:08 AM CDT) Glucose, POC 236(H) 70 - 199 mg/dL [facility] Blood 11/08/2022 2:08 AM CDT 11/08/2022 2:08 AM CDT Larry Dennis MD LAB POCT ORDERABLES - DEVICE Fi nal Result Performing Organization Address [facility] Co de Phone Number NILSA MCDONNELL [address] [facility] [place] [address] * (ABNORMAL) POCT glucose (11/07/2022 9:34 PM CDT) Glucose, POC 244(H) 70 - 199 mg/dL [facility] Blood 11/07/2022 9:34 PM CDT 11/07/2022 9:34 PM CDT Larry Dennis MD LAB POCT ORDERABLES - DEVICE Fi nal Result Performing Organization Address [facility] Co de Phone Number NILSA MCDONNELL [address] [facility] [place] [address] * POCT glucose (11/07/2022 5:29 PM CDT) Glucose, POC 195 70 - 199 mg/dL NILSA MCDONNELL Blood 11/07/2022 5:29 PM CDT 11/07/2022 5:29 PM CDT Bev Adames MD LAB POCT ORDERABLES - DEVIC E Final Result Performing Organization Address [facility] Co de Phone Number [facility] [address] [place] [address] * Vancomycin level random (11/07/2022 4:35 PM CDT) Vancomycin random 15.7 mcg/mL NILSA MCDONNELL Comment: Interpretive Data No reference ranges have been established for random drug levels. Current Interpretive Data was last revised on 2020. Blood 11/07/2022 4:35 PM CDT 11/07/2022 5:02 PM CDT Nadege [facility] LAB BLOOD ORDERABLES Final Res ult Performing Organization Address [facility] Co de Phone Number [facility] [address] [place] [address] * US TEO (11/07/2022 3:51 PM CDT) Anatomical Region Laterality Modality Vascular N/A Ultrasound 11/07/2022 5:09 PM CDT Impressions 11/07/2022 5:09 PM CDT RIGHT LEG:Patent right lower extremity vasculature with multiphasic waveforms. ??The TEO is 1.06 and TBI is 1.35. LEFT LEG:Normal TEO at rest 1.02 and TBI 1.02 . Electronically signed by: Mir Zavaleta M.D. Narrative 11/07/2022 5:09 PM CDT EXAMINATION: Unilateral LOWER EXTREMITY ARTERY DUPLEX WITH TEO'S DATE: 11/07/2022 3:00 PM HISTORY: chronic wound right hallux COMPARISON: 10/16/2021 TECHNIQUE: Standard technique was employed for unilateral lower extremity arterial duplex with TEO's including grayscale and color Doppler images with spectral waveform analysis. ?? FINDINGS: SITE ? WAVEFORM RT FEMORAL ? Triphasic RT P. FEMORAL ?Biphasic RT S. FEMORAL ?Triphasic RT POPLITEAL ? Biphasic RT POST TIBIAL ?Triphasic RT PERONEAL ?Biphasic RT ANT TIBIAL ? Biphasic RT LORENE PED ?Biphasic SITE ? PRESSURE ? INDEX ? RT BRACHIAL ?162 ? RT ANKLE PT ?158 ? 0.95 RT ANKLE DP ?177 ? 1.06 RT DIGIT ? 225 ? 1.35 Right posterior tibial and dorsalis pedis waveforms are biphasic. Digital waveform is pulsatile. LT BRACHIAL ?167 ? LT ANKLE PT ? 155 ? 0.93 LT ANKLE DP ? 171 ? 1.02 LT DIGIT ? 170 ? 1.02 Left posterior tibial waveform is monophasic the dorsalis pedis waveform is biphasic digital waveform is pulsatile Procedure Note Mir Zavaleta MD - 11/07/2022 EXAMINATION: Unilateral LOWER EXTREMITY ARTERY DUPLEX WITH TEO'S DATE: 11/07/2022 3:00 PM HISTORY: chronic wound right hallux COMPARISON: 10/16/2021 TECHNIQUE: Standard technique was employed for unilateral lower extremity arterial duplex with TEO's including grayscale and color Doppler images with spectral waveform analysis. FINDINGS: SITE WAVEFORM RT FEMORAL Triphasic RT P. FEMORAL Biphasic RT S. FEMORAL Triphasic RT POPLITEAL Biphasic RT POST TIBIAL Triphasic RT PERONEAL Biphasic RT ANT TIBIAL Biphasic RT LORENE PED Biphasic SITE PRESSURE INDEX RT BRACHIAL 162 RT ANKLE PT 158 0.95 RT ANKLE DP 177 1.06 RT DIGIT 225 1.35 Right posterior tibial and dorsalis pedis waveforms are biphasic. Digital waveform is pulsatile. LT BRACHIAL 167 LT ANKLE PT 155 0.93 LT ANKLE DP 171 1.02 LT DIGIT 170 1.02 Left posterior tibial waveform is monophasic the dorsalis pedis waveform is biphasic digital waveform is pulsatile IMPRESSION: RIGHT LEG:Patent right lower extremity vasculature with multiphasic waveforms. The TEO is 1.06 and TBI is 1.35. LEFT LEG:Normal TEO at rest 1.02 and TBI 1.02 . Electronically signed by: Mir Zavaleta M.D. Portillo Marin DPM IMG US PROCEDURES Final Res ult * US Arterial Duplex Lower Extremity Right Limited (11/07/2022 3:29 PM CDT) Anatomical Region Laterality Modality Vascular Right Ultrasound 11/07/2022 5:09 PM CDT Impressions 11/07/2022 5:09 PM CDT RIGHT LEG:Patent right lower extremity vasculature with multiphasic waveforms. ??The TEO is 1.06 and TBI is 1.35. LEFT LEG:Normal TEO at rest 1.02 and TBI 1.02 . Electronically signed by: Mir Zavaleta M.D. Narrative 11/07/2022 5:09 PM CDT EXAMINATION: Unilateral LOWER EXTREMITY ARTERY DUPLEX WITH TEO'S DATE: 11/07/2022 3:00 PM HISTORY: chronic wound right hallux COMPARISON: 10/16/2021 TECHNIQUE: Standard technique was employed for unilateral lower extremity arterial duplex with TEO's including grayscale and color Doppler images with spectral waveform analysis. ?? FINDINGS: SITE ? WAVEFORM RT FEMORAL ? Triphasic RT P. FEMORAL ?Biphasic RT S. FEMORAL ?Triphasic RT POPLITEAL ? Biphasic RT POST TIBIAL ?Triphasic RT PERONEAL ?Biphasic RT ANT TIBIAL ? Biphasic RT LORENE PED ?Biphasic SITE ? PRESSURE ? INDEX ? RT BRACHIAL ?162 ? RT ANKLE PT ?158 ? 0.95 RT ANKLE DP ?177 ? 1.06 RT DIGIT ? 225 ? 1.35 Right posterior tibial and dorsalis pedis waveforms are biphasic. Digital waveform is pulsatile. LT BRACHIAL ?167 ? LT ANKLE PT ? 155 ? 0.93 LT ANKLE DP ? 171 ? 1.02 LT DIGIT ? 170 ? 1.02 Left posterior tibial waveform is monophasic the dorsalis pedis waveform is biphasic digital waveform is pulsatile Procedure Note Mir Zavaleta MD - 11/07/2022 EXAMINATION: Unilateral LOWER EXTREMITY ARTERY DUPLEX WITH TEO'S DATE: 11/07/2022 3:00 PM HISTORY: chronic wound right hallux COMPARISON: 10/16/2021 TECHNIQUE: Standard technique was employed for unilateral lower extremity arterial duplex with TEO's including grayscale and color Doppler images with spectral waveform analysis. FINDINGS: SITE WAVEFORM RT FEMORAL Triphasic RT P. FEMORAL Biphasic RT S. FEMORAL Triphasic RT POPLITEAL Biphasic RT POST TIBIAL Triphasic RT PERONEAL Biphasic RT ANT TIBIAL Biphasic RT LORENE PED Biphasic SITE PRESSURE INDEX RT BRACHIAL 162 RT ANKLE PT 158 0.95 RT ANKLE DP 177 1.06 RT DIGIT 225 1.35 Right posterior tibial and dorsalis pedis waveforms are biphasic. Digital waveform is pulsatile. LT BRACHIAL 167 LT ANKLE PT 155 0.93 LT ANKLE DP 171 1.02 LT DIGIT 170 1.02 Left posterior tibial waveform is monophasic the dorsalis pedis waveform is biphasic digital waveform is pulsatile IMPRESSION: RIGHT LEG:Patent right lower extremity vasculature with multiphasic waveforms. The TEO is 1.06 and TBI is 1.35. LEFT LEG:Normal TEO at rest 1.02 and TBI 1.02 . Electronically signed by: Mir Zavaleta M.D. Alla Goodman NP IMG US PROCEDURES Final Result * POCT glucose (11/07/2022 12:05 PM CDT) [facility] Glucose, POC 152 70 - 199 mg/dL NILSA Blood 11/07/2022 12:0 5 PM CDT 11/07/2022 12:05 PM CDT Bev Adames MD LAB POCT ORDERABLES - DEVIC E Final Result Performing Organization Address [facility]/ZIP Co de Phone Number NILSA MCDONNELL [address] [place] [address] * POCT glucose (11/07/2022 7:49 AM CDT) Glucose, POC 164 70 - 199 mg/dL [facility] Blood 11/07/2022 7:49 AM CDT 11/07/2022 7:49 AM CDT Bev Adames MD LAB POCT ORDERABLES - DEVIC E Final Result Performing Organization Address [facility] Co de Phone Number NILSA MCDONNELL [address] [place] [address] * eGFR (11/07/2022 5:33 AM CDT) eGFR 26 mL/min/1. 73 m2 [facility] Comment: Interpretive Data Reference Interval Normal [...] interpretive data was last reviewed 2021. Blood 11/07/2022 5:33 AM CDT 11/07/2022 5:55 AM CDT us Rosa Jade NP LAB BLOOD ORDERABLES Final Res ult [facility] [address] [place] [address] * Differential, auto (11/07/2022 5:33 AM CDT) Neutrophil abs 5.0 1.7 - 6.5 K/cumm [facility] Imm gran abs 0.0 0.0 - 0.1 K/cumm [facility] Lymphocyte abs 1.4 0.8 - 3.3 K/cumm [facility] Monocyte abs 0.6 0.2 - 0.8 K/cumm [facility] Eosinophil abs 0.2 0.0 - 0.5 K/cumm [facility] Basophil abs 0.0 0.0 - 0.1 K/cumm [facility] Neutrophil pct 68.6 % [facility] Comment: Interpretive Data Percent cell count reference ranges are not reported, since discordance with absolute values may lead to misinterpretation of CBC data. Current Interpretive Data was last revised on 2017. Imm gran pct 0.3 % [facility] Comment: Interpretive Data Percent cell count reference ranges are not reported, since discordance with absolute values may lead to misinterpretation of CBC data. Current Interpretive Data was last revised on 2017. Lymphocyte pct 19.8 % [facility] Comment: Interpretive Data Percent cell count reference ranges are not reported, since discordance with absolute values may lead to misinterpretation of CBC data. Current Interpretive Data was last revised on 2017. Monocyte pct 7.7 % [facility] Comment: Interpretive Data Percent cell count reference ranges are not reported, since discordance with absolute values may lead to misinterpretation of CBC data. Current Interpretive Data was last revised on 2017. Eosinophil pct 3.2 % [facility] Comment: Interpretive Data Percent cell count reference ranges are not reported, since discordance with absolute values may lead to misinterpretation of CBC data. Current Interpretive Data was last revised on 2017. Basophil pct 0.4 % [facility] Comment: Interpretive Data Percent cell count reference ranges are not reported, since discordance with absolute values may lead to misinterpretation of CBC data. Current Interpretive Data was last revised on 2017. Blood 11/07/2022 5:3 3 AM CDT 11/07/2022 5:54 AM CDT us Rosa Jade [facility] LAB BLOOD ORDERABLES Final Res ult [facility] [address] [place] [address] * (ABNORMAL) CBC with auto differential (11/07/2022 5:33 AM CDT) WBC 7.2 3.8 - 9.9 K/cumm [facility] Hgb 8.2(L) 11.9 - 15.5 g/dL [facility] Hct 26.6(L) 35.6 - 45.5 % [facility] Plt 287 150 - 400 K/cumm [facility] MPV 10.8 9.1 - 12.3 fL [facility] RBC 2.73(L) 3.90 - 5.20 M/cumm [facility] MCV 97.4(H) 81.3 - 96.4 fL [facility] MCH 30.0 27.1 - 33.3 pg [facility] MCHC 30.8(L) 32.3 - 35.7 g/dL [facility] RDW CV 16.1(H) 11.1 - 14.9 % [facility] RDW SD 57.6(H) 35.7 - 48.1 fL [facility] NRBC abs 0.00 0.00 - 0.01 K/cumm [facility] Blood 11/07/2022 5:33 AM CDT 11/07/2022 5:54 AM CDT us Rosa Jade [facility] LAB BLOOD ORDERABLES Final Res ult NILSA MCDONNELL [address] [employer] [place] [address] * (ABNORMAL) Basic metabolic panel (11/07/2022 5:33 AM CDT) Sodium 145 135 - 145 mmol/L [facility] Potassium, pl 3.9 3.3 - 4.9 mmol/L [facility] Chloride 109 97 - 110 mmol/L [facility] CO2 24 22 - 32 mmol/L [facility] Anion gap 12 2 - 15 mmol/L [facility] BUN 37(H) 8 - 25 mg/dL [facility] Creatinine 1.98(H) 0.60 - 1.10 mg/dL [facility] Glucose 217(H) 70 - 199 mg/dL [facility] Comment: [...] Calcium 9.0 8.5 - 10.3 mg/dL [facility] Blood 11/07/2022 5:33 AM CDT 11/07/2022 5:55 AM CDT us Rosa Jade [facility] LAB BLOOD ORDERABLES Final Res ult Performing Organization Address City/[facility]/ZIP Co de Phone Number NILSA MCDONNELL [address] [place] [address] * Magnesium (11/07/2022 5:33 AM CDT) Magnesium 2.0 1.4 - 2.5 mg/dL [facility] Blood 11/07/2022 5:33 AM CDT 11/07/2022 5:55 AM CDT Rosa Jade [facility] LAB BLOOD ORDERABLES Final Res ult CARLOS ENRIQUEELLEN MCDONNELL [address] [place] [address] * (ABNORMAL) POCT glucose (11/07/2022 3:04 AM CDT) Glucose, POC 213(H) 70 - 199 mg/dL NILSA MCDONNELL Blood 11/07/2022 3:04 AM CDT 11/07/2022 3:04 AM CDT Bev Adames MD LAB POCT ORDERABLES - DEVIC E Final Result Performing Organization Address [facility] Co de Phone Number CARLOS ENRIQUEELLEN MCDONNELL [address] [place] [address] * Blood culture Blood Peripheral (11/06/2022 5:20 PM CDT) Report Final Report: No growth NILSA MCDONNELL Comment:Testing performed by : [facility], [address] [place]., [address] Blood (Peripheral) 11/06/2022 5:20 PM CDT 11/06/2022 9:19 PM CDT Narrative NILSA - 11/11/2022 7:00 AM CDT From a different site [...] organism identification may be performed using the [employer] Gram-Positive Blood Culture Assay. This assay detects microbial DNA in positive blood culture broth via hybridization of target DNA to capture oligonucleotides on a microarray. This assay has been cleared by the [place] Food and Drug Administration and its performance characteristics have been verified by the [facility]. 5. ?For questions about this culture, contact the Microbiology Laboratory at [phone]. Interpretive data was last revised on 2019. us Nadege [facility] LAB MICROBIOLOGY - GENERAL ORD ERABLES Final Result NILSA MCDONNELL [address] Department [place] [address] * Blood culture Blood Peripheral (11/06/2022 5:20 PM CDT) Report Final Report: No growth NILSA MCDONNELL Comment:Testing performed by : [facility], [address] [place]., [address] Blood (Peripheral) 11/06/2022 5:20 PM CDT 11/06/2022 9:56 PM CDT Narrative NILSA MCDONNELL - 11/11/2022 7:00 AM CDT Draw Blood cultures before [...] organism identification may be performed using the [employer] Gram-Positive Blood Culture Assay. This assay detects microbial DNA in positive blood culture broth via hybridization of target DNA to capture oligonucleotides on a microarray. This assay has been cleared by the [place] Food and Drug Administration and its performance characteristics have been verified by the [facility]. 5. ?For questions about this culture, contact the Microbiology Laboratory at [phone]. Interpretive data was last revised on 2019. us Nadege [facility] LAB MICROBIOLOGY - GENERAL ORD ERABLES Final Result [facility] [address] [facility] [place] [address] * CT Head WO Contrast (11/06/2022 5:06 PM CDT) Anatomical Region Laterality Modality Head and Neck N/A Computed Tomogra phy 11/06/2022 5:21 PM CDT Impressions 11/06/2022 5:21 PM CDT No acute intracranial pathology. Electronically signed by: Brionna Randhawa M.D. Narrative 11/06/2022 5:21 PM CDT Examination: ??CT HEAD WO CONTRAST Date: 11/06/2022 4:55 PM Clinical History: Mental status change, unknown cause Technique: Noncontrast CT head with 2-D reformatted views was obtained. Comparison:CT head 10/02/2022. Findings: Mild enlarged ventricles, sulci, and cisterns is seen with subtle decreased attenuation of the periventricular white matter. The medeiros-white matter differentiation is preserved. ??No acute intracranial hemorrhage midline shift or mass effect is seen. Bilateral intraocular lens replacement is seen.. Mild left sphenoid compartment mucosal thickening is present. The mastoid and middle ear cavity are clear. The calvarium is intact. ??Hyperostosis frontalis interna is seen. Procedure Note Brionna Randhawa MD - 11/06/2022 Examination: CT HEAD WO CONTRAST Date: 11/06/2022 4:55 PM Clinical History: Mental status change, unknown cause Technique: Noncontrast CT head with 2-D reformatted views was obtained. Comparison:CT head 10/02/2022. Findings: Mild enlarged ventricles, sulci, and cisterns is seen with subtle decreased attenuation of the periventricular white matter. The medeiros-white matter differentiation is preserved. No acute intracranial hemorrhage midline shift or mass effect is seen. Bilateral intraocular lens replacement is seen.. Mild left sphenoid compartment mucosal thickening is present. The mastoid and middle ear cavity are clear. The calvarium is intact. Hyperostosis frontalis interna is seen. IMPRESSION: No acute intracranial pathology. Electronically signed by: Brionna Randhawa M.D. Nadege [facility] IM[facility] CT PROCEDURES Final Result * (ABNORMAL) Urinalysis, microscopic only (11/06/2022 3:21 PM CDT) WBC, ur 11-20(A) 0 - 5 /HPF [facility] RBC, ur 0-2 0 - 2 /HPF [facility] Culture Reflex Comment Reflex to urine culture will be performed. [facility] Urine 11/06/2022 3:21 PM CDT 11/06/2022 3:21 PM CDT Nadege [facility] URINE ORDERABLES Final Res ult C[facility] [id number] Department [place] [address] * (ABNORMAL) Urinalysis reflex to microscopic and culture Urine (11/06/2022 3:21 PM CDT) Color, ur Straw Yellow [facility] Clarity, ur Clear Clear [facility] Specific gravity, ur 1.009 1.003 - 1.030 [facility] pH, urine [...] to microscopic UA will be performed. [facility] Urine 11/06/2022 3:21 PM CDT 11/06/2022 3:21 PM CDT Narrative [facility] - 11/06/2022 3:42 PM CDT ?? Urine pH is affected by diet, medications, systemic acid-base disturbances, and renal tubular function. ??pH may affect urinary stone formation. ??For example, urine pH below 6.0 may help reduce the tendency for calcium phosphate stones and pH greater than 6.0 may reduce the tendency for uric acid stone formation. Source: [employer]. Last revised 07-02-2017 us Nadege [facility] MICROBIOLOGY - GENERAL ORD ERABLES Final Result Performing Organization Address City/[facility] Co de Phone Number [facility] [id number] Department [place] [address] * Urine culture Urine (11/06/2022 3:21 PM CDT) Report Final Report: Less than 100,000 colonies/mL (clinically insignificant growth based on current clinical standards) [facility] Comment:Testing performed by : [facility], [address] [place]., [address] Organism (CLINICALLY INSIGNIFICANT GROWTH [facility] Urine 11/06/2022 3:21 PM CDT 11/06/2022 10:45 PM CDT Narrative [facility] - 11/08/2022 5:49 AM CDT Urine culture reflexed based upon urinalysis results. Testing performed by [facility] ([phone]) Nadege [facility] MICROBIOLOGY - GENERAL ORD ERABLES Final Result Performing Organization Address [facility] Co de Phone Number NILSA [address] Department [place] [address] * (ABNORMAL) Differential, auto (11/06/2022 1:35 PM CDT) Neutrophil abs 6.8(H) 1.7 - 6.5 K/cumm [facility] Imm gran abs 0.0 0.0 - 0.1 K/cumm [facility] Lymphocyte abs 2.0 0.8 - 3.3 K/cumm [facility] Monocyte abs 0.6 0.2 - 0.8 K/cumm [facility] Eosinophil abs 0.1 0.0 - 0.5 K/cumm [facility] Basophil abs 0.0 0.0 - 0.1 K/cumm [facility] Neutrophil pct 71.2 % [facility] Comment: Interpretive Data Percent cell count reference ranges are not reported, since discordance with absolute values may lead to misinterpretation of CBC data. Current Interpretive Data was last revised on 2017. Imm gran pct 0.2 % [facility] Comment: Interpretive Data Percent cell count reference ranges are not reported, since discordance with absolute values may lead to misinterpretation of CBC data. Current Interpretive Data was last revised on 2017. Lymphocyte pct 20.7 % [facility] Comment: Interpretive Data Percent cell count reference ranges are not reported, since discordance with absolute values may lead to misinterpretation of CBC data. Current Interpretive Data was last revised on 2017. Monocyte pct 6.1 % [facility] Comment: Interpretive Data Percent cell count reference ranges are not reported, since discordance with absolute values may lead to misinterpretation of CBC data. Current Interpretive Data was last revised on 2017. Eosinophil pct 1.5 % [facility] Comment: Interpretive Data Percent cell count reference ranges are not reported, since discordance with absolute values may lead to misinterpretation of CBC data. Current Interpretive Data was last revised on 2017. Basophil pct 0.3 % [facility] Comment: Interpretive Data Percent cell count reference ranges are not reported, since discordance with absolute values may lead to misinterpretation of CBC data. Current Interpretive Data was last revised on 2017. Blood 11/06/2022 1:35 PM CDT 11/06/2022 1:35 PM CDT us Nadege [facility] BLOOD ORDERABLES Final Res ult NILSA MCDONNELL [address] [employer] [place] [address] * (ABNORMAL) CBC with auto differential (11/06/2022 1:35 PM CDT) WBC 9.6 3.8 - 9.9 K/cumm [facility] Hgb 9.0(L) 11.9 - 15.5 g/dL [facility] Hct 28.3(L) 35.6 - 45.5 % [facility] Plt 295 150 - 400 K/cumm [facility] MPV 10.5 9.1 - 12.3 fL [facility] RBC 2.92(L) 3.90 - 5.20 M/cumm [facility] MCV 96.9(H) 81.3 - 96.4 fL [facility] MCH 30.8 27.1 - 33.3 pg [facility] MCHC 31.8(L) 32.3 - 35.7 g/dL [facility] RDW CV 16.5(H) 11.1 - 14.9 % [facility] RDW SD 58.6(H) 35.7 - 48.1 fL [facility] NRBC abs 0.00 0.00 - 0.01 K/cumm [facility] Blood 11/06/2022 1:35 PM CDT 11/06/2022 1:35 PM CDT us Nadege [facility] BLOOD ORDERABLES Final Res ult NILSA MCDONNELL [address] [facility] [place] [address] * eGFR (11/06/2022 1:34 PM CDT) Pathologist [facility] eGFR 26 mL/min/1. 73 m2 [facility] Comment: Interpretive Data Reference Interval Normal [...] interpretive data was last reviewed 2021. Blood 11/06/2022 1:34 PM CDT 11/06/2022 1:34 PM CDT us Nadege [facility] BLOOD ORDERABLES Final Res ult [facility] [address] Department of Laboratories [place], [place] [id number] * (ABNORMAL) Comprehensive metabolic panel (11/06/2022 1:34 PM CDT) Sodium 144 135 - 145 mmol/L [facility] Potassium, pl 4.0 3.3 - 4.9 mmol/L [facility] Chloride 106 97 - 110 mmol/L [facility] CO2 26 22 - 32 mmol/L [facility] Anion gap 12 2 - 15 mmol/L [facility] BUN 39(H) 8 - 25 mg/dL [facility] Creatinine 2.00(H) 0.60 - 1.10 mg/dL [facility] Glucose 161 70 - 199 mg/dL [facility] Comment: [...] 10 - 45 Units/L [facility] Blood 11/06/2022 1:34 PM CDT 11/06/2022 1:34 PM CDT us Nadege [facility] BLOOD ORDERABLES Final Res ult [facility] [id number] Department of Laboratories [place], [place] [id number] * XR Toe Great Right Minimum 2 Views (11/06/2022 12:11 PM CDT) Anatomical Region Laterality Modality Lower Extremities, Foot, Toes Right Co mputed Radiography 11/06/2022 2:16 PM CDT Impressions 11/06/2022 2:16 PM CDT Findings/impression: Partial amputation of the 4th digit. No acute fracture. ??Atherosclerotic calcifications are demonstrated in the peripheral vasculature. ??Erosive changes are noted in the 1st digit distal tuft with associated irregularity of the soft tissue. Findings may represent cellulitis with associated osteomyelitis in the appropriate clinical setting Electronically signed by: Phil Pete II, D.O. Narrative 11/06/2022 2:16 PM CDT EXAMINATION: XR TOE ??GREAT RIGHT MINIMUM 2 VIEWS DATE: 11/06/2022 11:50 AM HISTORY: Right great toe wound. COMPARISON: None. Procedure Note Phil Pete II, - 11/06/2022 EXAMINATION: XR TOE GREAT RIGHT MINIMUM 2 VIEWS DATE: 11/06/2022 11:50 AM HISTORY: Right great toe wound. COMPARISON: None. IMPRESSION: Findings/impression: Partial amputation of the 4th digit. No acute fracture. Atherosclerotic calcifications are demonstrated in the peripheral vasculature. Erosive changes are noted in the 1st digit distal tuft with associated irregularity of the soft tissue. Findings may represent cellulitis with associated osteomyelitis in the appropriate clinical setting Electronically signed by: Phil Pete II, D.O. Nadege [facility] XR PROCEDURES Final Result documented in this encounter Visit Diagnoses Diagnosis Osteomyelitis of great toe of right foot (CMS/HCC) (HCC)- Primary Osteomyelitis of great toe of right foot (CMS/HCC) (HCC) Cellulitis of great toe of right foot Wheezing Hyperlipidemia associated with type 2 diabetes mellitus (HCC) Gastroesophageal reflux disease, unspecified whether esophagitis present Other diabetic neurological complication associated with type 2 diabetes mellitus (HCC) Anemia in stage 4 chronic kidney disease (HCC) 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 2 diabetes mellitus (CMS/HCC) (HCC) Diabetic neuropathy ([facility]) Type II or unspecified type diabetes mellitus with neurological manifestations, not stated as uncontrolled Hyperlipidemia associated with type 2 diabetes mellitus (HCC) Hypertension associated with diabetes (HCC) Unspecified essential hypertension Gastroesophageal reflux disease without esophagitis Esophageal reflux Late onset Alzheimer's dementia without behavioral disturbance (HCC) Schizoaffective disorder, bipolar type (CMS/HCC) (HCC) Schizoaffective disorder, unspecified condition Type 2 diabetes mellitus with diabetic neuropathy, with long-term current use of insulin (CMS/HCC) (HCC) Abnormal urinalysis Other nonspecific finding on examination of urine Anemia, unspecified type Gastritis without bleeding, unspecified chronicity, unspecified gastritis type documented in this encounter Admitting Diagnoses Diagnosis Osteomyelitis of great toe of right foot (CMS/HCC) (HCC) Cellulitis of great toe of right foot documented in this encounter Administered Medications Inactive Administered Medications - up to 3 most recent administrations Medication Order MAR Action Action Date Dose Rate Site acetaminophen (TYLENOL) tablet 650 mg 650 mg, oral, Every 4 hours PRN, 1st line for pain, fever, fever greater than 38.3 C, Starting on Thu11/07/22 at 0126, Indications: Fever, PainIndications:Fever,Pain albuterol 2.5 mg /3 mL (0.083 %) nebulizer solution 2.5 mg 2.5 mg, nebulization, Every 4 hours PRN (cyber incident responder), wheezing, shortness of breath, 1st Line, Starting on Thu11/12/22 at 1450 aluminum-magnesium hydroxide-simethicone (MAALOX) 40-40-4 mg/mL oral suspension 30 mL 30 mL, oral, Every 4 hours PRN, cramping, indigestion, heartburn, Starting on Thu11/07/22 at 1141 amLODIPine (NORVASC) tablet 5 mg 5 mg, oral, Nightly, First dose on Thu11/10/22 at 2100 Given 11/12/2022 8:42 PM CDT 5 mg Given 11/11/2022 9:07 PM CDT 5 mg Given 11/10/2022 9:24 PM CDT 5 mg atorvastatin (LIPITOR) tablet 20 mg 20 mg, oral, Daily, First dose on Thu11/07/22 at 0900 Given 11/13/2022 8:44 AM CDT 20 mg Given 11/12/2022 9:09 AM CDT 20 mg Given 11/11/2022 9:22 AM CDT 20 mg benztropine (COGENTIN) tablet 1.5 mg 1.5 mg, oral, Nightly, First dose on Thu11/07/22 at 0200 Given 11/12/2022 8:42 PM CDT 1.5 mg Given 11/11/2022 9:06 PM CDT 1.5 mg Given 11/10/2022 9:24 PM CDT 1.5 mg carvediloL (COREG) tablet 12.5 mg 12.5 mg, oral, 2 times daily with meals (bkfst, dinner), First dose (after last modification) on Thu11/10/22 at 1800 Given 11/13/2022 5:51 PM CDT 12.5 mg Given 11/13/2022 8:44 AM CDT 12.5 mg Given 11/12/2022 4:58 PM CDT 12.5 mg carvediloL (COREG) tablet 6.25 mg 6.25 mg, oral, 2 times daily with meals (bkfst, dinner), First dose on Thu11/07/22 at 0800 Given 11/10/2022 9:32 AM CDT 6.25 mg Given 11/09/2022 5:44 PM CDT 6.25 mg Given 11/09/2022 8:48 AM CDT 6.25 mg cefepime (MAXIPIME) 2,000 mg in sodium chloride 0.9% 100 mL IVPB 2,000 mg, intravenous, at 200 mL/hr, Administer over 30 Minutes, Every 24 hours scheduled, First dose on Kellie 11/06/22 at 1700, Mini-Bag Plus bag, Indications: Bone/Joint InfectionIndications:Bone/Joint Infection New Bag 11/10/2022 7:41 PM CDT 2,000 mg 200 mL/hr New Bag 11/09/2022 5:44 PM CDT 2,000 mg 200 mL/hr New Bag 11/08/2022 5:45 PM CDT 2,000 mg 200 mL/hr dextrose (D10W) 10% bolus 250 mL 250 mL, intravenous, at 1,000 mL/hr, Administer over 15 Minutes, Every 15 min PRN, blood glucose less than 70 mg/dL and UNABLE to swallow/take PO glucose/juice., Starting on Thu11/07/22 at 0127, After treatment for hypoglycemia, recheck BG followed [...] glucose less than 70 mg/dL, Starting on Thu11/07/22 at 0127, If patient is alert and able to [...] episode of hypoglycemia., Indications: hypoglycemic disorderIndications:hypoglycemic disorder enoxaparin (LOVENOX) syringe 30 mg 30 mg, subcutaneous, Daily (for enoxaparin), First dose on Thu11/07/22 at 2100, Indications: Deep Vein Thrombosis PreventionIndications:Deep Vein Thrombosis Prevention Given 11/12/2022 8:42 PM CDT 30 mg Left Forearm Given 11/11/2022 9:04 PM CDT 30 mg Le ft Forearm Given 11/10/2022 9:23 PM CDT 30 mg Le ft Upper Arm famotidine (PEPCID) tablet 10 mg 10 mg, oral, Nightly, First dose on Thu11/07/22 at 2100 Given 11/12/2022 8:42 PM CDT 10 mg Given 11/11/2022 9:06 PM CDT 10 mg Given 11/10/2022 9:24 PM CDT 10 mg glucagon injection 1 mg 1 mg, intramuscular, Every 30 min PRN, low blood sugar, blood glucose less than 70 mg/dL AND no IV access AND unable to take PO glucose/juice., Starting on Thu11/07/22 at 0127, After Glucagon is administered, position patient on [...] 1 mL SWFI. Use immediately following reconstitution. insulin glargine (LANTUS, SEMGLEE) 100 unit/mL injection 17 Units 17 Units (rounded from 17.375 Units = 0.25 Units/kg ? 69.5 kg), subcutaneous, Nightly, First dose on Thu11/07/22 at 2100, Do not hold if NPO. Do not mix with other insulins, Indications: Diabetes MellitusIndications:Diabetes Mellitus Given 11/12/2022 8:43 PM CDT 17 Units Left Lower Abdomen Given 11/11/2022 9:06 PM CDT 17 Units Le ft Forearm Given 11/10/2022 9:38 PM CDT 17 Units Le ft Upper Arm insulin lispro (HumaLOG, ADMELOG) 100 unit/mL injection 0-10 Units 0-10 Units, subcutaneous, Every 4 hours scheduled, First dose on Thu11/07/22 at 0400, Blood glucose mg/dL: 149 or less: No [...] NPO Status, Indications: Diabetes MellitusIndications:Diabetes Mellitus Given 11/07/2022 5:47 PM CDT 2 Units Right Upper Arm Given 11/07/2022 12:18 PM CDT 2 Units L eft Upper Arm Given 11/07/2022 3:07 AM CDT 4 Units Le ft Upper Arm insulin lispro (HumaLOG, ADMELOG) 100 unit/mL injection 0-10 Units 0-10 Units, subcutaneous, 3 times daily with meals, First dose on Thu11/08/22 at 0800, Blood glucose mg/dL: 149 or [...] NPO Status, Indications: Diabetes MellitusIndications:Diabetes Mellitus Given 11/13/2022 5:51 PM CDT 2 Units Right Upper Arm Given 11/13/2022 12:12 PM CDT 2 Units R ight Upper Arm Given 11/13/2022 8:45 AM CDT 2 Units Ri ght Upper Arm insulin lispro (HumaLOG, ADMELOG) 100 unit/mL injection 0-5 Units 0-5 Units, subcutaneous, Nightly, First dose on Thu11/07/22 at 2100, Blood glucose mg/dL: 149 or [...] NPO Status, Indications: Diabetes MellitusIndications:Diabetes Mellitus Given 11/12/2022 8:42 PM CDT 2 Units Left Lower Abdomen Given 11/11/2022 9:06 PM CDT 2 Units Le ft Lower Abdomen Given 11/10/2022 9:38 PM CDT 1 Units Le ft Upper Arm insulin lispro (HumaLOG, ADMELOG) 100 unit/mL injection 6 Units 6 Units (rounded from 5.7685 Units = 0.083 Units/kg ? 69.5 kg), subcutaneous, 3 times daily with meals, First dose on Thu11/08/22 at 0800, If BG greater than or [...] 70 mg/dL., Indications: Diabetes MellitusIndications:Diabetes Mellitus Given 11/13/2022 5:51 PM CDT 6 Units Right Upper Arm Given 11/13/2022 12:12 PM CDT 6 Units R ight Upper Arm Given 11/13/2022 8:45 AM CDT 6 Units Ri ght Upper Arm losartan (COZAAR) tablet 100 mg 100 mg, oral, Daily, First dose (after last modification) on Thu11/09/22 at 0900 Given 11/13/2022 8:44 AM CDT 100 mg Given 11/12/2022 9:10 AM CDT 100 mg Given 11/11/2022 9:21 AM CDT 100 mg losartan (COZAAR) tablet 50 mg 50 mg, oral, Daily, First dose on Thu11/07/22 at 0900 Given 11/08/2022 8:34 AM CDT 50 mg Given 11/07/2022 12:19 PM CDT 50 mg losartan (COZAAR) tablet 50 mg 50 mg, oral, Once, On 11/08/22 at 2030, For 1 dose Given 11/08/2022 9:14 PM CDT 50 mg metroNIDAZOLE (FLAGYL) 500 mg/100 mL in sodium chloride (premix) 500 mg 500 mg, intravenous, at 200 mL/hr, Administer over 30 Minutes, Every 8 hours scheduled, First dose on Kellie 11/06/22 at 1720, Room temperature only, Indications: Bone/Joint InfectionIndications:Bone/Joint Infection New Bag 11/13/2022 5:05 AM CDT 500 mg 200 mL/hr New Bag 11/12/2022 9:12 PM CDT 500 mg 200 mL/hr New Bag 11/12/2022 1:05 PM CDT 500 mg 200 mL/hr metroNIDAZOLE (FLAGYL) tablet 500 mg 500 mg, oral, 3 times daily, First dose on Kellie 11/13/22 at 1600, Indications: Bone/Joint InfectionIndications:Bone/Joint Infection Given 11/13/2022 5:50 PM CDT 50 0 mg ondansetron (ZOFRAN) injection 4 mg 4 mg, intravenous, Administer over 2 Minutes, Every 6 hours PRN, nausea, vomiting, Starting on Thu11/07/22 at 0126 oxyCODONE (ROXICODONE) tablet 5 mg 5 mg, oral, Every 4 hours PRN, 2nd line for pain, 3rd line for pain, Starting on Thu11/07/22 at 1141, Indications: PainIndications:Pain pregabalin (LYRICA) capsule 150 mg 150 mg, oral, Nightly, First dose on Thu11/07/22 at 2100 Given 11/12/2022 8:42 PM CDT 150 mg Given 11/11/2022 9:06 PM CDT 150 mg Given 11/10/2022 9:24 PM CDT 150 mg QUEtiapine (SEROquel) tablet 25 mg 25 mg, oral, Nightly PRN, own, 1st line, Starting on Thu11/12/22 at 1451 ramelteon (ROZEREM) tablet 8 mg 8 mg, oral, Nightly PRN, sleep, 1st Line, Starting on Thu11/12/22 at 1450, Indications: Sleep-Onset InsomniaIndications:Sleep-Onset Insomnia risperiDONE (RisperDAL) tablet 2 mg 2 mg, oral, Nightly, First dose on Thu11/07/22 at 2100 Given 11/12/2022 8:42 PM CDT 2 mg Given 11/11/2022 9:06 PM CDT 2 mg Given 11/10/2022 9:24 PM CDT 2 mg vancomycin 1,000 mg/200 mL in dextrose 5% (premix) 1,000 mg 1,000 mg (rounded from 1,042.5 mg = 15 mg/kg ? 69.5 kg), intravenous, Administer over 60 Minutes, Once, On Thu11/09/22 at 1230, For 1 dose, Indications: Bone/Joint InfectionIndications:Bone/Joint Infection New Bag 11/09/2022 12:28 PM CDT 1,000 mg vancomycin 1,000 mg/200 mL in dextrose 5% (premix) 1,000 mg 1,000 mg (rounded from 1,042.5 mg = 15 mg/kg ? 69.5 kg), intravenous, Administer over 60 Minutes, Once, On Thu11/10/22 at 1030, For 1 dose, Indications: Bone/Joint InfectionIndications:Bone/Joint Infection New Bag 11/10/2022 1:02 PM CDT 1,000 mg vancomycin 1,000 mg/200 mL in dextrose 5% (premix) 1,000 mg 1,000 mg (rounded from 1,042.5 mg = 15 mg/kg ? 69.5 kg), intravenous, Administer over 60 Minutes, Once, On Thu11/11/22 at 1400, For 1 dose, Indications: Bone/Joint InfectionIndications:Bone/Joint Infection New Bag 11/11/2022 2:20 PM CDT 1,000 mg vancomycin 1,000 mg/200 mL in dextrose 5% (premix) 1,000 mg 1,000 mg (rounded from 1,042.5 mg = 15 mg/kg ? 69.5 kg), intravenous, Administer over 60 Minutes, Every 48 hours, First dose on Thu11/13/22 at 0900, Indications: Skin/Soft Tissue InfectionIndications:Skin/Soft Tissue Infection New Bag 11/13/2022 11:32 AM CDT 1,000 mg vancomycin 1,750 mg/517.5 mL sodium chloride 0.9% (premix) 1,750 mg 1,750 mg (rounded from 1,735 mg = 25 mg/kg ? 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) Take 1 capsule (150 mg total) by mouth nightly Reorder 05/26/2022 11/13/2022 benztropine (COGENTIN) 1 mg tablet Take 1.5 tablets (1.5 mg total) by mouth nightly 07/18/2022 11/13/2022 albuterol HFA (ProAir HFA) 90 mcg/actuation inhalerIndications:Whe ezing Inhale 2 puffs every 4 (four) hours as needed for wheezing or shortness of breath Reorder 10/06/2022 11/13/2022 furosemide (LASIX) 40 mg tablet Take 1 tablet (40 mg total) by mouth daily as needed (Weight Gain >4lbs above dry weight.) Reorder 10/06/2022 11/13/2022 risperiDONE (RisperDAL) 2 mg tablet Take 1 tablet (2 mg total) by mouth nightly Reorder 10/06/2022 11/13/2022 OneTouch Verio test strips stripIndications:Uncon trolled type 2 diabetes mellitus with hyperglycemia (HCC) TEST 3 TO 4 TIMES DAILY Stop Taking at Discharge 06/25/2021 11/13/2022 famotidine (PEPCID) 10 mg tabletIndications:Sydney roesophageal reflux disease, unspecified whether esophagitis present Take 1 tablet (10 mg total) by mouth nightly Stop Taking at Discharge 02/13/2022 11/13/2022 insulin glargine 100 unit/mL (3 mL) pen for injectionIndications:T ype 2 diabetes mellitus with diabetic neuropathy, with long-term current use of insulin (HCC) Inject 25 Units under the skin nightly Stop Taking at Discharge 08/07/2022 11/13/2022 apixaban (ELIQUIS) 5 mg tablet Take 1 tablet (5 mg total) by mouth every 12 (twelve) hours Stop Taking at Discharge 09/19/2022 11/13/2022 dulaglutide (TRULICITY) 1.5 mg/0.5 mL pen injectorIndications:Ty pe 2 diabetes mellitus with diabetic neuropathy, with long-term current use of insulin (HCC) Inject 0.5 mL (1.5 mg total) under the skin every 7 days Stop Taking at Discharge 10/06/2022 11/13/2022 carvediloL (COREG) 6.25 mg tablet Take 1 tablet (6.25 mg total) by mouth 2 (two) times a day with meals Stop Taking at Discharge 10/06/2022 11/13/2022 insulin lispro (HumaLOG) 200 unit/mL (3 mL) pen for injectionIndications:t ype 2 diabetes mellitus Inject 0.06 mL (12 Units total) under the skin 3 (three) times a day with meals For Glucose <140: 0 units(u), 140-174: 2u, 175-199: 4u, 200-249: 6u, 250-299: 8u, 300-349: 10u, 350+: 12u Stop Taking at Discharge 10/06/2022 11/13/2022 polyethylene glycol (MIRALAX) 17 gram packet Take 1 packet (17 g total) by mouth daily as needed for constipation Stop Taking at Discharge 10/06/2022 11/13/2022 doxycycline hyclate 100 mg capsule Stop Taking at Discharge 08/14/2022 11/13/2022 acetaminophen (TYLENOL) 325 mg tablet Take 2 tablets (650 mg total) by mouth every 6 (six) hours as needed for pain Stop Taking at Discharge 10/10/2022 11/13/2022 losartan (COZAAR) 50 mg tablet Take 1 tablet (50 mg total) by mouth daily Stop Taking at Discharge 10/14/2022 11/13/2022 lidocaine HCL-menthoL 4-1 % adhesive patch,medicated Apply 2 patches topically daily Apply to patient lower back Stop Taking at Discharge 11/13/2022 documented as of this encounter Historical Medications * This list may reflect changes made after this encounter. lidocaine HCL-menthoL 4-1 % adhesive patch,medicated Apply 2 patches topically daily Apply to patient lower back 3 added in this encounter Active and Recently Administered Medications Times are shown in CDT. Scheduled Medication Order 11/11/2022 11/12/2022 11/13/2022 amLODIPine (NORVASC) tablet 5 mg 5 mg, oral, Nightly, First dose on Thu11/10/22 at 2100 2107 (Given - Provider: Abram Hampton) 2041 (Given - Provider: Abram Hampton) atorvastatin (LIPITOR) tablet 20 mg 20 mg, oral, Daily, First dose on Thu11/07/22 at 0900 0922 (Given - Provider: Peyton Mendez RN) 0909 (Given - Provider: Peyton Mendez RN) 0844 (Given - Provider: Lulú Jacome RN) benztropine (COGENTIN) tablet 1.5 mg 1.5 mg, oral, Nightly, First dose on Thu11/07/22 at 0200 2106 (Given - Provider: Abram Hampton) 2041 (Given - Provider: Abram Hampton) carvediloL (COREG) tablet 12.5 mg 12.5 mg, oral, 2 times daily with meals (bkfst, dinner), First dose (after last modification) on Thu11/10/22 at 1800 0922 (Given - Provider: Peyton Mendez RN)1752 (Given - Provider: Peyton Mendez RN) 0910 (Given - Provider: Peyton Mendez RN)1658 (Given - Provider: Peyton Mendez RN) 0844 (Given - Provider: Lulú Jacome RN)1751 (Given - Provider: Lulú Jacome RN) enoxaparin (LOVENOX) syringe 30 mg 30 mg, subcutaneous, Daily (for enoxaparin), First dose on Thu11/07/22 at 2100, Indications: Deep Vein Thrombosis Prevention 2103 (Given - Provider: Abram Hampton) 2041 (Given - Provider: Abram Hampton) famotidine (PEPCID) tablet 10 mg 10 mg, oral, Nightly, First dose on Thu11/07/22 at 2100 2105 (Given - Provider: Abram Hampton) 2041 (Given - Provider: Abram Hampton) insulin glargine (LANTUS, SEMGLEE) 100 unit/mL injection 17 Units 17 Units (rounded from 17.375 Units = 0.25 Units/kg ? 69.5 kg), subcutaneous, Nightly, First dose on Thu11/07/22 at 2100, Do not hold if NPO. Do not mix with other insulins, Indications: Diabetes Mellitus 2105 (Given - Provider: Abram Hampton) 2042 (Given - Provider: Abram Hampton) insulin lispro (HumaLOG, ADMELOG) 100 unit/mL injection 0-10 Units 0-10 Units, subcutaneous, 3 times daily with meals, First dose on Thu11/08/22 at 0800, Blood glucose mg/dL: 149 or [...] hold for NPO Status, Indications: Diabetes Mellitus 0922 (Not Given - Provider: Peyton Mendez RN - Reason: Order parameters not met)1409 (Given - Provider: Peyton Mendez RN)1753 (Given - Provider: Peyton Mendez RN) 0913 (Given - Provider: Peyton Mendez RN)1225 (Not Given - Provider: Peyton Mendez RN - Reason: Order parameters not met)1745 (Given - Provider: Peyton Mendez RN) 0845 (Given - Provider: Lulú Jacome RN)1212 (Given - Provider: Lulú Jacome, ALIREZA)1751 (Given - Provider: Lulú Jacome, ALIREZA) insulin lispro (HumaLOG, ADMELOG) 100 unit/mL injection 0-5 Units 0-5 Units, subcutaneous, Nightly, First dose on Thu11/07/22 at 2100, Blood glucose mg/dL: 149 or [...] hold for NPO Status, Indications: Diabetes Mellitus 2105 (Given - Provider: Abram Hampton) 2041 (Given - Provider: Abram Hampton) insulin lispro (HumaLOG, ADMELOG) 100 unit/mL injection 6 Units 6 Units (rounded from 5.7685 Units = 0.083 Units/kg ? 69.5 kg), subcutaneous, 3 times daily with meals, First dose on Thu11/08/22 at 0800, If BG greater than or [...] less than 70 mg/dL., Indications: Diabetes Mellitus 0922 (Given - Provider: Peyton Mendez RN)1409 (Given - Provider: Peyton Mendez RN)1752 (Given - Provider: Peyton Mendez RN) 0910 (Given - Provider: Peyton Mendez RN)1257 (Given - Provider: Peyton Mendez RN)1744 (Given - Provider: Peyton Mendez RN) 0845 (Given - Provider: Lulú Jacome, ALIREZA)1212 (Given - Provider: Lulú Jacome, ALIREZA)1751 (Given - Provider: Lulú Jaocme, RN) losartan (COZAAR) tablet 100 mg 100 mg, oral, Daily, First dose (after last modification) on Thu11/09/22 at 0900 0921 (Given - Provider: Peyton Mendez RN) 0910 (Given - Provider: Peyton Mendez RN) 0844 (Given - Provider: Lulú Jacome RN) metroNIDAZOLE (FLAGYL) 500 mg/100 mL in sodium chloride (premix) 500 mg (CANCELED) 500 mg, intravenous, at 200 mL/hr, Administer over 30 Minutes, Every 8 hours scheduled, First dose on Thu11/06/22 at 1720, Room temperature only, Indications: Bone/Joint Infection 0507 (New Bag - Provider: Yelena Cook RN)1402 (New Bag - Provider: Peyton Mendez RN)2108 (New Bag - Provider: Abram Hampton) 0538 (New Bag - Provider: Abram Hampton)1305 (New Bag - Provider: Peyton Mendez RN)2111 (New Bag - Provider: Abram Hampton) 0505 (New Bag - Provider: Abram Hampton) metroNIDAZOLE (FLAGYL) tablet 500 mg 500 mg, oral, 3 times daily, First dose on Thu11/13/22 at 1600, Indications: Bone/Joint Infection 1750 (Given - Provider: Lulú Jacome RN) pregabalin (LYRICA) capsule 150 mg 150 mg, oral, Nightly, First dose on Thu11/07/22 at 2100 210 (Given - Provider: Abram Hampton) 2041 (Given - Provider: Abram Hampton) risperiDONE (RisperDAL) tablet 2 mg 2 mg, oral, Nightly, First dose on Thu11/07/22 at 2100 210 (Given - Provider: Abram Hampton) 2041 (Given - Provider: Abram Hampton) vancomycin 1,000 mg/200 mL in dextrose 5% (premix) 1,000 mg (COMPLETED) 1,000 mg (rounded from 1,042.5 mg = 15 mg/kg ? 69.5 kg), intravenous, Administer over 60 Minutes, Once, On Thu11/11/22 at 1400, For 1 dose, Indications: Bone/Joint Infection 1420 (New Bag - Provider: Peyton Mendez RN) vancomycin 1,000 mg/200 mL in dextrose 5% (premix) 1,000 mg 1,000 mg (rounded from 1,042.5 mg = 15 mg/kg ? 69.5 kg), intravenous, Administer over 60 Minutes, Every 48 hours, First dose on Kellie 11/13/22 at 0900, Indications: Skin/Soft Tissue Infection 0959 (Held by Provider - Provider: Krishna Morgan MD - Reason: Pending Results)1036 (Unheld by Provider - Provider: Krishna Morgan MD - Reason: Other)1132 (New Bag - Provider: Lulú Jacome RN - Comment: waiting for vanc trough) PRN Medication Order 11/11/2022 11/12/2022 11/13/2022 acetaminophen (TYLENOL) tablet 650 mg 650 mg, oral, Every 4 hours PRN, 1st line for pain, fever, fever greater than 38.3 C, Starting on Thu11/07/22 at 0126, Indications: Fever, Pain albuterol 2.5 mg /3 mL (0.083 %) nebulizer solution 2.5 mg 2.5 mg, nebulization, Every 4 hours PRN (cyber incident responder), wheezing, shortness of breath, 1st Line, Starting on Thu11/12/22 at 1450 aluminum-magnesium hydroxide-simethicone (MAALOX) 40-40-4 mg/mL oral suspension 30 mL 30 mL, oral, Every 4 hours PRN, cramping, indigestion, heartburn, Starting on Thu11/07/22 at 1141 dextrose (D10W) 10% bolus 250 mL(Linked Group 1) 250 mL, intravenous, at 1,000 mL/hr, Administer over 15 Minutes, Every 15 min PRN, blood glucose less than 70 mg/dL and UNABLE to swallow/take PO glucose/juice., Starting on Thu11/07/22 at 0127, After treatment for hypoglycemia, recheck BG followed [...] glucose less than 70 mg/dL, Starting on Thu11/07/22 at 0127, If patient is alert and able to [...] unable to take PO glucose/juice., Starting on Thu11/07/22 at 0127, After Glucagon is administered, position patient on [...] 6 hours PRN, nausea, vomiting, Starting on Thu11/07/22 at 0126 oxyCODONE (ROXICODONE) tablet 5 mg 5 mg, oral, Every 4 hours PRN, 2nd line for pain, 3rd line for pain, Starting on Thu11/07/22 at 1141, Indications: Pain polyethylene glycol (MIRALAX) packet 17 g 17 g, oral, Daily PRN, constipation, Starting on Thu11/07/22 at 0125 QUEtiapine (SEROquel) tablet 25 mg 25 mg, oral, Nightly PRN, Sundowning, 1st line, Starting on Thu11/12/22 at 1451 ramelteon (ROZEREM) tablet 8 mg 8 mg, oral, Nightly PRN, sleep, 1st Line, Starting on Thu11/12/22 at 1450, Indications: Sleep-Onset Insomnia Linked Groups Order Group 1: dextrose oral liquid liquid 15 gJump to med 15 g, oral, Every 15 min PRN, low blood sugar, blood glucose less than 70 mg/dL, Starting on Thu11/07/22 at 0127, If patient is alert and able to [...] UNABLE to swallow/take PO glucose/juice., Starting on Thu11/07/22 at 0127, After treatment for hypoglycemia, recheck BG followed [...] Count Last Ordered Date First Ordered Date albuterol 2.5 mg /3 mL (0.08 3 %) nebulizer solution 2.5 mg 1 11/12/2022 QUEtiapine (SEROquel) tablet 25 mg 1 2022 ramelteon (ROZEREM) tablet 8 mg 1 losartan (COZAAR) tablet 50 mg 11/08/2022 acetaminophen (TYLENOL) tablet 650 mg albuterol HFA (PROVENTIL HFA ,VENTOLIN HFA,PROAIR HFA) 90 mcg/actuation inhaler 2 puff 11/07/2022 aluminum-magnesium hydroxide -simethicone (MAALOX) 40-40-4 mg/mL oral suspension 30 mL 11/07/2022 dextrose (D10W) 10% bolus 250 mL 11/08/19 dextrose oral liquid liquid 15 g 11/08/19 glucagon injection 1 mg 11/07/2022 insulin lispro (HumaLOG, ADM ELOG) 100 unit/mL injection 0-10 Units 11/07/2022 ondansetron (ZOFRAN) injection 4 mg 1 11/07 oxyCODONE (ROXICODONE) tablet 5 mg 1 2022 polyethylene glycol (MIRALAX) packet 17 g 1 11/07/2022 vancomycin 1,000 mg/200 mL i n dextrose 5% (premix) 1,000 mg 2 11/07/2022 11/06/2022 cefTRIAXone (ROCEPHIN) 2,000 mg/20 mL in sterile water (premix) 2,000 mg 1 11/06/2022 Lab Orders Without Results Count Last Ordered D ate First Ordered Date POCT GLUCOSE DEVICE 26 11/13/2022 11/08/19 Diet Count Last Ordered Date First Orde red Date ADULT DISCHARGE DIET 1 11/13/2022 Nursing Count Last Ordered Date First Orde red Date DISCHARGE ACTIVITY 2 11/13/2022 DISCHARGE CALL PROVIDER 8 11/13/2022 DISCHARGE INSTRUCTIONS 1 11/13/2022 FOLLOW UP WITH ESTABLISHED PROVIDER 1 11/13 WEIGH PATIENT 1 11/06/2022 Consult Count Last Ordered Date First Orde red Date IP CONSULT TO PODIATRY 1 11/07/2022 IP CONSULT TO VASCULAR SURGERY 1 11/07/2022 Admission Count Last Ordered Date First Orde red Date ADMIT TO INPATIENT 1 11/06/2022 Discharge Count Last Ordered Date First Orde red Date DISCHARGE PATIENT 1 11/13/2022 CORE MEASURES Count Last Ordered Date First Ord ered Date REASON FOR NO VTE PROPHYLAXIS AT ADMISSION 1 11/06/2022 documented in this encounter Additional Health Concerns Infection Onset Date Last Indicated Resolved Time MRSA Comment:Toe 11/08/22, 12/12/22 11/08/2022 12/12/2022 06/10/2023 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
--- OUTSIDE RECORDS SUMMARY | 2024-07-04 04:10 | XMS_ITS | Encounter Summary ---
Author Organization [facility] Healthcare Address [address] [place] [address] Care Team Providers Care Payroll Consultant Name Role Phone Cherelle Corcoran MD Primary Care Pro vider Mark Queen MD Unavailable [phone] Anam Costa LCSW Unavailable UnavailMelania Rae RN Unavailable [phone] Encounter Details Date Type Department Care Team (Latest Contact Info) Description 11/13/2022 6:48 PM CDT - 11/13/2022 11:59 PM CDT Hospital Encounter [facility] [address] [place], [place] [id number] Emergency, Room R Discharge Disposition: Discharge to [...] week 11/11/2022 How often do you attend [facility] or rastafarian services? More than 4 times [...] on file Legal Sex Female 9:03 AM MOLDER MACHINE TENDER Gender Identity Female 02/08/2020 6:39 PM [...] long-term current use of insulin ([facility]) USE TO INJECT BASAGLAR EVERY NIGHT AT [...] flash glucose scanning reader (FreeStyle Madhav 2 [place]) miscIndications:Ty pe 2 diabetes mellitus with diabetic neuropathy, with long-term current use of insulin ([facility]) Use to continually monitor glucose 1 each 10/01/2021 3 flash glucose sensor (FreeStyle Madhav 2 Sensor) kitIndications:Typ e 2 diabetes mellitus with diabetic neuropathy, with long-term current use of insulin ([facility]) Use to continually monitor glucose, change every 14 days 6 kit 3 2022 3 furosemide (LASIX) 40 mg tablet Take 1 tablet (40 mg total) by mouth daily as needed (Weight Gain >4lbs above dry weight.) 15 tablet 11/13/2022 3 lancets miscIndications:Un controlled type 2 diabetes mellitus with hyperglycemia ([facility]) Check blood sugar up to 3 times [...] Pressure Cuff) miscIndications:Hy pertension associated with diabetes ([facility]) Use to check blood pressure daily 1 each 1 10/07/2021 3 pregabalin (LYRICA) 150 mg capsuleIndications :Other diabetic neurological complication associated with type 2 diabetes mellitus ([facility]) Take 1 capsule (150 mg total) by [...] (Latest Contact Info) Description 07/13/2024 9:00 AM MOLDER MACHINE TENDER Hospital Encounter [facility] [address] [place] [address] Jaya Grier MD [address] [place] [address] 07/13/2024 9:00 AM MOLDER MACHINE TENDER - 07/13/2024 9:30 AM MOLDER MACHINE TENDER Surgery [facility] [address] [place] [address] Jaya Grier MD [address] [place] [address] ESOPHAGOGASTRODUODENOSCOPY Scheduled Procedures Name Priority Associated Diagnoses Date/Ti me ESOPHAGOGASTRODUODENOSCOPY Anemia, unspecified type Gastritis without bleeding, unspecified chronicity, unspecified gastritis type 07/13/2024 9:00 AM MOLDER MACHINE TENDER COLONOSCOPY Iron deficiency anemia due to chronic blood loss documented as of this encounter Visit Diagnoses Not on filedocumented in this encounter Additional Health Concerns Infection Onset Date Last Indicated Resolved Time MRSA Comment:Toe 11/08/22, 12/12/22 11/08/2022 12/12/2022 06/10/2023 3:05 AM MOLDER MACHINE TENDER documented as of this encounter Care Teams Payroll Consultant Relationship Specialty Start Date End Date Cherelle Corcoran MD PCP - General Family Medicine 08/30/19 Mark Queen MD Consulting Physician Infectious Diseases 01/10/20 Anam Costa LCSW Supervisor Endless Track Vehicle 08/08/22 02/18/23 Melania Lee, RN [address] [place] [address] [address] [place] [address] Erp Technical Lead 08/22/22 12/07/22 documented as of this encounter
--- OUTSIDE RECORDS SUMMARY | 2024-07-04 04:10 | XMS_ITS | Encounter Summary ---
Author Organization [facility] Address [address] [place] [address] Care Team Providers Care Slitter Scorer Cut Off Operator Name Role Phone Cherelle Corcoran MD Primary Care Pro vider Mark Queen MD Unavailable Anam Costa [facility] Unavailable Unavailabl Melania Moncada RN Unavailable Rudolph Welch MD Unavailable [phone] Markie Ryan MD Unavailable [phone] Encounter Details Date Type Department Care Team (Late st Contact Info) Description 12/05/2022 Telephone [facility] Nephrology at [place] [id number] [facility] [facility] [address] [place] [address] Tucker Pitts MD [address] [place] [address] [address] [place] [address] Social History Tobacco Use Types [...] often do you attend chur ch or buddhist services? Never 12/08/2022 Do you belong to [...] slept in a fpc (including now)? 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 Sex Female 9:03 AM HYDROLOGY TEACHER Gender Identity Female 02/08/2020 6:39 PM CDT Sexual Orientation Not on file documented as of this encounter Miscellaneous Notes * Telephone Encounter - Donna Dwyer - 12/08/2022 2:48 PM CDT She was taken to [facility] and is currently admitted in the hospital. Spoke with her daughter. She will call us when she gets home and she will make a follow up. * Telephone Encounter - Tucker Pitst MD - 12/05/2022 12:53 PM CDT May be discharged from [facility] today or over the weekend. Please arrange for labs including renal function panel and CBC in 1 week and follow-up with Dr. Ryan after that. I think she has a appointment many months down the road but may be beneficial to see her in the next few weeks. documented in this encounter Plan of Treatment Upcoming Encounters Date Type Department Care Team (Latest Contact Info) Description 07/13/2024 9:00 AM HYDROLOGY TEACHER Hospital Encounter [facility] [address] [place] [address] Jaya Grier MD [address] [place] [address] [address] [place] [id number] 07/13/2024 9:00 AM HYDROLOGY TEACHER - 07/13/2024 9:30 AM HYDROLOGY TEACHER Surgery [facility] [address] [place] [address] Jaya Grier MD [address] [place] [address] ESOPHAGOGASTRODUODENOSCOPY Scheduled Procedures Name Priority Associated Diagnoses Date/Ti id ESOPHAGOGASTRODUODENOSCOPY Anemia, unspecified type Gastritis without bleeding, unspecified chronicity, unspecified gastritis type 07/13/2024 9:00 AM HYDROLOGY TEACHER COLONOSCOPY Iron deficiency anemia due to chronic blood loss documented as of this encounter Visit Diagnoses Not on filedocumented in this encounter Additional Health Concerns Infection Onset Date Last Indicated Resolved Time MRSA Comment:Toe 11/08/22, 12/12/22 11/08/2022 12/12/2022 06/10/2023 3:05 AM HYDROLOGY TEACHER documented as of this encounter Care Teams Slitter Scorer Cut Off Operator Relationship Specialty Start Date End Date Cherelle Corcoran MD PCP - General Family Medicine 08/30/19 Mark Queen MD Consulting Physician Infectious Diseases 01/10/20 Anam Costa LCSW Machine Edge Bander 08/08/22 02/18/23 Melania Lee, RN [address] [place] [address] [address] [place] [address] Syrup Blender 08/22/22 12/07/22 Rudolph Welch MD [address] [place] [address] Consulting Physician Infectious Diseases 12/05/22 Markie Ryan MD [address] [place] [address] Consulting Physician Nephrology 12/05/22 documented as of this encounter
--- OUTSIDE RECORDS SUMMARY | 2024-07-04 04:10 | XMS_ITS | Encounter Summary ---
Author Organization [facility] Address [address] [place] [address] Phone Care Team Providers Care Dispatcher Maintenance Name Role Phone Cherelle Corcoran MD Primary Care Pro vider Mark Queen MD Unavailable [phone] Anam Costa LCSW Unavailable UnavailMelania Rae RN Unavailable [phone] Encounter Details Date Type Department Care Team (Late st Contact Info) Description 12/04/2022 Telephone [facility] Endocrinology Metabolism and Lipid [address] [place] [address] [place] [address] Yoly Herrera RN Social History Tobacco Use [...] neighbors? More than three times a week 11/30/2022 How often do you get togethe r with friends or relatives? More than three times a week 11/30/2022 How often do you attend chur ch or bahai services? More than 4 times per year 11/30/2022 Do you belong to any clubs o r organizations such as anglican groups, unions, fraternal or athletic groups, or school groups? No 11/30/2022 How often do you attend meet ings of the clubs or organizations you belong to? Never 11/30/2022 Are you , , di vorced, , never , or living with a partner? 11/30/2022 AUDIT-C Answer Date Recorded Q1: How often do you have a drink containing alcohol? Never 11/30/2022 Q2: How many drinks containi ng alcohol do you have on a typical day when you are drinking? Patient does not drink Q3: How often do you have si x or more drinks on one occasion? Never 11/30/2022 Overall Financial Resource Strain (CARDIA) Answe r Date Recorded How hard is it for you to pa y for the very basics like food, housing, medical care, and heating? Not hard at all 11/30/2022 PHQ-2 Answer Date Recorded PHQ-2 Total Score (If total score is 3 or more points, staff should administer the PHQ-9) 0 06/09/2022 Hunger Vital Sign Answer Date Recorded Within the past 12 months, y ou worried that your food would run out before you got the money to buy more. Never true 11/12/19 23 Within the past 12 months, t [...] getting things needed for daily living? No 11/30/2022 Housing Stability Vital Sign Answer Fuentes e Recorded In the last 12 months, was t here a time when you were not able to pay the mortgage or rent on time? No 11/30/2022 In the last 12 months, how many places have you lived? 1 11/30/2022 In the last 12 months, was t here a time when you did not have a steady place to sleep or slept in a jail (including now)? 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 She was getting epoetin injection of Retacrit in September and the daughter is not sure on her plan Hospital note has recommendation to transfuse with hemoglobin <7 I asked the daughter to contact us once she is stable or if her glucose numbers deteriorate She is currently running 100-200s on her glucose numbers Follow-up with any additional questions, concerns or problems documented in this encounter Plan of Treatment Upcoming Encounters Date Type Department Care Team (Latest Contact Info) Description 07/13/2024 9:00 AM WHEAT INSPECTOR Hospital Encounter [facility] [address] [place] [address] Jaya Grier MD [address] [place] [id number] 07/13/2024 9:00 AM WHEAT INSPECTOR - 07/13/2024 9:30 AM WHEAT INSPECTOR Surgery [facility] [address] [place] [address] Jaya Grier MD [address] [place] [address] ESOPHAGOGASTRODUODENOSCOPY Scheduled Procedures Name Priority Associated Diagnoses Date/Ti me ESOPHAGOGASTRODUODENOSCOPY Anemia, unspecified type Gastritis without bleeding, unspecified chronicity, unspecified gastritis type 07/13/2024 9:00 AM WHEAT INSPECTOR COLONOSCOPY Iron deficiency anemia due to chronic blood loss documented as of this encounter Visit Diagnoses Not on filedocumented in this encounter Additional Health Concerns Infection Onset Date Last Indicated Resolved Time MRSA Comment:Toe 11/08/22, 12/12/22 11/08/2022 12/12/2022 06/10/2023 3:05 AM WHEAT INSPECTOR documented as of this encounter Care Teams Dispatcher Maintenance Relationship Specialty Start Date End Date Cherelle Corcoran MD PCP - General Family Medicine 08/30/19 Mark Queen MD Consulting Physician Infectious Diseases 01/10/20 Anam Costa LCSW Topology Professor 08/08/22 02/18/23 Melania Lee, RN [address] [place] [address] [address] [place] [address] Video Game Tester 08/22/22 12/07/22 documented as of this encounter
--- OUTSIDE RECORDS SUMMARY | 2024-07-04 04:10 | XMS_ITS | Encounter Summary ---
Author Organization [facility] Home Care Servic es Address [address] [place] [address] Phone Care Team Providers Care Perishable Fruit Inspector Name Role Phone Cherelle Corcoran MD Primary Care Pro vider Mark Queen MD Unavailable [phone] Anam Costa LCSW Unavailable Unavailabl Melania Moncada RN Unavailable [phone] Rudolph Welch MD Unavailable [phone] Markie Ryan MD Unavailable [phone] Encounter Details Date Type Department Care Team (Late st Contact Info) Description 12/05/2022 Orders Only [facility] [address] [place] [id number] Jewel Garcia, [facility] Social History Tobacco Use Types Packs/Day Years [...] slept in a alf (including now)? No 11/30/2022 Comments No Sex and Gender Information Value Date Recorded Sex Assigned at Not on file Legal Sex Female 9:03 AM BIOLOGICAL AIDE Gender Identity Female 02/08/2020 6:39 PM CDT Sexual Orientation Not on file documented as of this encounter Progress Notes * Jewel Garcia [facility] - 12/05/2022 3:21 PM CDT Per Fax order Dr Rudolph Welch/ Nadine Garcia [facility] Maintain Picc with 10 mL NS and 5 mL Heparin 10 units/mL for patency per established protocol. Ceftriaxone 2gm in Normal Saline 100mL, infuse intravenously over 60 minutes every 24 hours by Elastomeric Device at 100mL/hr. Lot: 01/15/23 ~ Labs: weekly renal function panel and CBC w/diff Please fax a copy of all lab results to [facility] at [phone]. 1 SNV every week for 7 weeks for patient assessment, teaching, IV catheter care, lab work. 6 PRN visits for additional teaching, line care, labs or other symptom management. documented in this encounter Plan of Treatment Upcoming Encounters Date Type Department Care Team (Latest Contact Info) Description 07/13/2024 9:00 AM BIOLOGICAL AIDE Hospital Encounter [facility] GI Lab [address] [place] [address] Jaya Grier MD [address] [facility] [address] [place] [address] 07/13/2024 9:00 AM BIOLOGICAL AIDE - 07/13/2024 9:30 AM BIOLOGICAL AIDE Surgery [facility] Lab [address] [place] [address] Jaya Grier MD [address] [facility] [address] [place] [address] ESOPHAGOGASTRODUODENOSCOPY Scheduled Procedures Name Priority Associated Diagnoses Date/Ti vt ESOPHAGOGASTRODUODENOSCOPY Anemia, unspecified type Gastritis without bleeding, unspecified chronicity, unspecified gastritis type 07/13/2024 9:00 AM BIOLOGICAL AIDE COLONOSCOPY Iron deficiency anemia due to chronic blood loss documented as of this encounter Visit Diagnoses Not on filedocumented in this encounter Additional Health Concerns Infection Onset Date Last Indicated Resolved Time MRSA Comment:Toe 11/08/22, 12/12/22 11/08/2022 12/12/2022 06/10/2023 3:05 AM BIOLOGICAL AIDE documented as of this encounter Care Teams Perishable Fruit Inspector Relationship Specialty Start Date End Date Cherelle Corcoran MD PCP - General Family Medicine 08/30/19 Mark Queen MD Consulting Physician Infectious Diseases 01/10/20 Anam Costa LCSW Directory Assistance Operator 08/08/22 02/18/23 Jesus, Melania Joel RN [address] [place] [address] [address] [place] [address] Mold Capper Helper 08/22/22 12/07/22 Rudolph Welch MD [address] [facility] [address] [place] [address] Consulting Physician Infectious Diseases 12/05/22 Markie Ryan MD [address] [facility] [address] [place] [address] Consulting Physician Nephrology 12/05/22 documented as of this encounter
--- OUTSIDE RECORDS SUMMARY | 2024-07-04 04:10 | XMS_ITS | Encounter Summary ---
Author Organization [facility] Home Care Servic es Address [address] [place] [address] Phone Care Team Providers Care Benefits Sales Consultant Name Role Phone Cherelle Corcoran MD Primary Care Pro vider Mark Queen MD Unavailable [phone]- [phone] Anam CostaW Unavailable Unavailabl e Rudolph Welch MD Unavailable [phone] Markie Ryan MD Unavailable [phone] Encounter Details Date Type Department Care Team (Late st Contact Info) Description 12/15/2022 Orders Only [facility] [address] [place] [address] Cari Aly, [facility] Social History Tobacco Use Types Packs/Day Years [...] you attend chur ch or spiritism services? Never 12/08/2022 Do you belong to [...] slept in a detention (including now)? 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 Sex Female 9:03 AM DISTANCE LEARNING TECHNICIAN Gender Identity Female 02/08/2020 6:39 PM CDT Sexual Orientation Not on file documented as of this encounter Progress Notes * Cari Aly RPh - 12/15/2022 2:23 PM CDT FOC/TORB: Dr. Krishna Morgan/ Cari Aly PharmD Maintain IV access PICC Line with 10ml normal saline and 5ml heparin 50units/5ml for patency per established protocol. Daptomycin 350 mg in Normal Saline 100mL, infuse intravenously over 60 minutes every 48 hours by Elastomeric Device at 100mL/hr. NOTE Q48 HOUR DOSING PLEASE GIVE FIRST DOSE IN HOME ON 12/16/22 - PLEASE TAKE FIRST DOSE IN HOME PRECAUTIONS Labs: Please draw baseline CK in home on 12/16/22 Then Weekly CBC w/diff, CMP and CK thereafter Please fax all results to [facility] Home Infusion at [phone] Cathy Keller at [phone] LOT: 12/23/22 . Firm stop, additional SNV to remove patient PICC line after last doses are given [facility] Home Infusion to discharge patient thereafter 1 SNV every week for 3 weeks for patient assessment, teaching, IV catheter care, lab work. 6 PRN visits for additional teaching, line care, labs or other symptom management documented in this encounter Plan of Treatment Upcoming Encounters Date Type Department Care Team (Latest Contact Info) Description 07/13/2024 9:00 AM [facility] Hospital Encounter [facility] GI Lab [address] [place] [address] Jaya Grier MD [facility] [address] [address] 07/13/2024 9:00 AM DISTANCE LEARNING TECHNICIAN - 07/13/2024 9:30 AM DISTANCE LEARNING TECHNICIAN Surgery [facility] GI Lab [address] [place] [address] Jaya Grier MD [address] [facility] [address] [place] [address] ESOPHAGOGASTRODUODENOSCOPY Scheduled Procedures Name Priority Associated Diagnoses Date/Ti me ESOPHAGOGASTRODUODENOSCOPY Anemia, unspecified type Gastritis without bleeding, unspecified chronicity, unspecified gastritis type 07/13/2024 9:00 AM DISTANCE LEARNING TECHNICIAN COLONOSCOPY Iron deficiency anemia due to chronic blood loss documented as of this encounter Visit Diagnoses Not on filedocumented in this encounter Additional Health Concerns Infection Onset Date Last Indicated Resolved Time MRSA Comment:Toe 11/08/22, 12/12/22 11/08/2022 12/12/2022 06/10/2023 3:05 AM DISTANCE LEARNING TECHNICIAN documented as of this encounter Care Teams Benefits Sales Consultant Relationship Specialty Start Date End Date Cherelle Corcoran MD PCP - General Family Medicine 08/30/19 Mark Queen MD Consulting Physician Infectious Diseases 01/10/20 Anam Costa LCSW Plant Equipment Engineer 08/08/22 02/18/23 Rudolph Welch MD [address] [facility] [address] [place] [address] Consulting Physician Infectious Diseases 12/05/22 Markie Ryan MD [address] [facility] [address] [place] [address] Consulting Physician Nephrology 12/05/22 documented as of this encounter
--- OUTSIDE RECORDS SUMMARY | 2024-07-04 04:10 | XMS_ITS | Encounter Summary ---
Author Organization [facility] Address [address] [facility] [address] [place] [address] Care Team Providers Care Qa Intern Name Role Phone Cherelle Corcoran MD Primary Care Pro vider Mark Queen MD Unavailable + [phone] Anam Costa [facility] Unavailable Unavailabl e Rudolph Welch MD Unavailable [phone] Markie Ryan MD Unavailable [phone] Encounter Details Date Type Department Care Team ([facility] st Contact Info) Description 12/09/2022 Telephone [facility] Primary Care at [address] [place] [address] Cherelle Corcoran MD [address] [place] [address] Social History Tobacco Use Types Packs/Day [...] often do you attend chur ch or yazidi services? Never 12/08/2022 Do you belong to [...] on file Legal Sex Female 9:03 AM MARBLE SETTER Gender Identity Female 02/08/2020 6:39 PM CDT Sexual Orientation Not on file documented as of this encounter Miscellaneous Notes * Telephone Encounter - Cherelle Corcoran MD - 12/11/2022 12:47 PM CDT Note created in error documented in this encounter Plan of Treatment Upcoming Encounters Date Type Department Care Team (Latest Contact Info) Description 07/13/2024 9:00 AM MARBLE SETTER Hospital Encounter [facility] GI Lab [address] [place] [address] Jaya Grier MD [address] [place] [address] [address] [place] [address] 07/13/2024 9:00 AM MARBLE SETTER - 07/13/2024 9:30 AM MARBLE SETTER Surgery [facility] Lab [address] [place] [address] Jaya Grier MD [address] [place] [address] [address] [place] [address] ESOPHAGOGASTRODUODENOSCOPY Scheduled Procedures Name Priority Associated Diagnoses Date/Ti de ESOPHAGOGASTRODUODENOSCOPY Anemia, unspecified type Gastritis without bleeding, unspecified chronicity, unspecified gastritis type 07/13/2024 9:00 AM MARBLE SETTER COLONOSCOPY Iron deficiency anemia due to chronic blood loss documented as of this encounter Visit Diagnoses Not on filedocumented in this encounter Additional Health Concerns Infection Onset Date Last Indicated Resolved Time MRSA Comment:Toe 11/08/22, 12/12/22 11/08/2022 12/12/2022 06/10/2023 3:05 AM MARBLE SETTER documented as of this encounter Care Teams Qa Intern Relationship Specialty Start Date End Date Cherelle Corcoran MD PCP - General Family Medicine 08/30/19 Mark Queen MD Consulting Physician Infectious Diseases 01/10/20 Anam Costa LCSW Activity Therapist 08/08/22 02/18/23 Rudolph Welch MD [address] [facility] [address] [place] [address] Consulting Physician Infectious Diseases 12/05/22 Markie Ryan MD [address] [facility] [address] [place] [address] Consulting Physician Nephrology 12/05/22 documented as of this encounter
--- OUTSIDE RECORDS SUMMARY | 2024-07-04 04:10 | XMS_ITS | Encounter Summary ---
Author Organization [facility] Address [address] [facility] [address] [place] [address] Care Team Providers Care Design Engineer Agricultural Equipment Name Role Phone Cherelle Corcoran MD Primary Care Pro vider Mark Queen MD Unavailable + [phone] Anam Costa [facility]available [facility] Melania Moncada RN Unavailable Rudolph Welch MD Unavailable Markie Ryan MD Unavailable [phone] Reason for Visit * Reason Onset Date Comments Medical Question/Miscellaneous 12/04/2022 Encounter Details Date Type Department Care Team ([facility] Contact Info) Description 12/04/2022 Telephone [facility] Primary Care at [address] [address] Cherelle Corcoran MD [address] [place] [address] Medical Question/Miscellaneous Social History Tobacco Use [...] 12/23/2022 How often do you attend chur ch or mormon services? Patient declined 12/23/2022 Do you belong [...] slept in a usp (including now)? No 12/23/2022 Comments No Sex and Gender Information Value Date Recorded Sex Assigned at Not on file Legal Sex Female 9:03 AM GENERAL OPERATIONS AGENT Gender Identity Female 02/08/2020 6:39 PM CDT Sexual Orientation Not on file documented as of this encounter Miscellaneous Notes * Telephone Encounter - Sandy Mota MA - 12/08/2022 11:57 AM CDT Spoke to pt daughter and she verbalized understanding. No further questions at this time. * Telephone Encounter - Cherelle Corcoran MD - 12/08/2022 6:55 AM CDT Reviewed Chart, looks like she is now at [facility]. I don't manage care within the hospital, but will follow up upon discharge. * Telephone Encounter - Monserrat Daniel - 12/04/2022 3:58 PM CDT Medical Question/Miscellaneous Caller???s Concern: patient's daughter Areli (not on Hippa) is calling to let Dr Corcoran know the patient has been in [facility] for the past week for fluid overload that started at the correction. Areli is wanting to speak with Dr Corcoran or her nurse to ask her if it would be better to take patient to [facility] or [facility] because Areli is not happy with the care she's receiving at [facility], she states [facility] is talking about discharging her today or tomorrow but patient still has fluid overload throughout her body, her kidney creatine function levels are high 2.7, her BUN level is too high and her Hemoglobin is too low. Areli would like for Dr Perez to look at patients chart for her hospital stay and all her lab work. Areli is asking for a call back with advise Pablo, after Dr Corcoran reviewa patient's chart Caller???s Call back #: [phone] Does message need to be routed? Yes-Action Needed documented in this encounter Plan of Treatment Upcoming Encounters Date Type Department Care Team (Latest Contact Info) Description 07/13/2024 9:00 AM GENERAL OPERATIONS AGENT Hospital Encounter [facility] GI Lab [address] [place] [address] Jaya Grier MD [address] [place] [address] [address] [place] [address] 07/13/2024 9:00 AM GENERAL OPERATIONS AGENT - 07/13/2024 9:30 AM GENERAL OPERATIONS AGENT Surgery [facility] GI Lab [address] [place] [address] Jaya Grier MD [address] [place] [address] [address] [place] [address] ESOPHAGOGASTRODUODENOSCOPY Scheduled Procedures Name Priority Associated Diagnoses Date/Ti ct ESOPHAGOGASTRODUODENOSCOPY Anemia, unspecified type Gastritis without bleeding, unspecified chronicity, unspecified gastritis type 07/13/2024 9:00 AM GENERAL OPERATIONS AGENT COLONOSCOPY Iron deficiency anemia due to chronic blood loss documented as of this encounter Visit Diagnoses Not on filedocumented in this encounter Additional Health Concerns Infection Onset Date Last Indicated Resolved Time MRSA Comment:Toe 11/08/22, 12/12/22 11/08/2022 12/12/2022 06/10/2023 3:05 AM GENERAL OPERATIONS AGENT COVID: Suspected 12/08/2022 12/08/2022 12/08/2022 8:17 PM CDT documented as of this encounter Care Teams Design Engineer Agricultural Equipment Relationship Specialty Start Date End Date Cherelle Corcoran MD PCP - General Family Medicine 08/30/19 Mark Queen MD Consulting Physician Infectious Diseases 01/10/20 Anam Costa LCSW Architecture Faculty Member 08/08/22 02/18/23 Jesus, Melania Joel RN [address] [place] [address] [address] [place] [address] Utility Operator 08/22/22 12/07/22 Rudolph Welch MD [address] [facility] [address] [place] [address] Consulting Physician Infectious Diseases 12/05/22 Markie Ryan MD [address] [facility] [address] [place] [address] Consulting Physician Nephrology 12/05/22 documented as of this encounter
--- OUTSIDE RECORDS SUMMARY | 2024-07-04 04:10 | XMS_ITS | Encounter Summary ---
Author Organization [facility] Healthcare Address [address] [place] [address] Care Team Providers Care Presser And Shaper Knitted Goods Name Role Phone Cherelle Corcoran MD Primary Care Pro vider Mark Queen MD Unavailable [phone] Anam Costa LCSW Unavailable Unavailabl Melania Moncada RN Unavailable [phone] Encounter Details Date Type Department Care Team (Late st Contact Info) Description 11/25/2022 Documentation [facility] OP Occup Therapy [address] [place] [address] Jerel Cardenas, OT Social History Tobacco Use Types Packs/Day Years [...] How often do you attend [facility] or christian services? More than 4 times [...] slept in a jail (including now)? No 11/11/2022 Comments No Sex and Gender Information Value Date Recorded Sex Assigned at Not on file Legal Sex Female 9:03 AM SHOE PACKER Gender Identity Female 02/08/2020 6:39 PM CDT Sexual Orientation Not on file documented as of this encounter Progress Notes * Jerel Cardenas OT - 11/25/2022 3:44 PM CDT No call/no show this date. 11/25/2022 CG documented in this encounter Plan of Treatment Upcoming Encounters Date Type Department Care Team (Latest Contact Info) Description 07/13/2024 9:00 AM SHOE PACKER Hospital Encounter [facility] GI Lab [address] [place] [address] Jaya Grier MD [address] [place] [address] [address] [place] [address] 07/13/2024 9:00 AM SHOE PACKER - 07/13/2024 9:30 AM SHOE PACKER Surgery [facility] Lab [address] [place] [address] Jaya Grier MD [address] [place] [address] [address] [place] [address] ESOPHAGOGASTRODUODENOSCOPY Scheduled Procedures Name Priority Associated Diagnoses Date/Ti nv ESOPHAGOGASTRODUODENOSCOPY Anemia, unspecified type Gastritis without bleeding, unspecified chronicity, unspecified gastritis type 07/13/2024 9:00 AM SHOE PACKER COLONOSCOPY Iron deficiency anemia due to chronic blood loss documented as of this encounter Visit Diagnoses Not on filedocumented in this encounter Additional Health Concerns Infection Onset Date Last Indicated Resolved Time MRSA Comment:Toe 11/08/22, 12/12/22 11/08/2022 12/12/2022 06/10/2023 3:05 AM SHOE PACKER documented as of this encounter Care Teams Presser And Shaper Knitted Goods Relationship Specialty Start Date End Date Cherelle Corcoran MD PCP - General Family Medicine 08/30/19 Mark Queen MD Consulting Physician Infectious Diseases 01/10/20 Anam Costa LCSW Product Assurance Engineer 08/08/22 02/18/23 Samples, Melania Joel RN [address] [place] [address] [address] [place] [address] Senior Quality Assurance Analyst 08/22/22 12/07/22 documented as of this encounter
--- OUTSIDE RECORDS SUMMARY | 2024-07-04 04:10 | XMS_ITS | Encounter Summary ---
Author Organization [facility] Healthcare Address [address] [place] [address] Care Team Providers Care Industrial Engineering Intern Name Role Phone Duane Corcoran MD Primary Care Pro vider Mark Queen MD Unavailable [phone] Anam Costa [facility] Unavailable Unavailabl Melania Moncada RN Unavailable Shwetha Rahman MD Unavailable [phone] Lizett Edwards MD Unavailable [phone] Reason for Visit * Reason Comments Edema * Auth/Cert (Routine) Specialty Diagnoses / Procedures Referred By Contac t Referred To Contact Diagnoses Chronic osteomyelitis (CMS/HCC) (HCC) Edema, unspecified type Acute renal failure superimposed on chronic kidney disease, unspecified CKD stage, unspecified acute renal failure type Hypertension, unspecified type Procedures admit Referral ID Status Reason Start Date Expiration Date Visits Re quested Visits Authorized [id number] 1 1 Encounter Details Date Type Department Care Team (Latest Contact Info) Description 11/30/2022 11:05 AM CDT - 12/05/2022 9:50 PM CDT Hospital Encounter [address] [address] Mee Dominguez DO [address] [place] [address] [place] [address] Skip Fabian MD [address] [place] [address] [place] [address] Aylin Kauffman MD [address] [place] [address] [facility] [place] [address] Jad Mead MD [address] [place] [address] [place] [address] Acute renal failure superimposed on chronic kidney disease, unspecified CKD stage, unspecified acute renal failure type (HCC) (Primary Dx); Edema, unspecified type; Hypertension, unspecified type; Chronic osteomyelitis (CMS/HCC) (HCC); Osteomyelitis of great toe of right foot (CMS/HCC) (HCC) Discharge [...] week 11/30/2022 How often do you attend [facility]? More than 4 times per year [...] slept in a long-term (including now)? 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 Gender Identity Female 02/08/2020 6:39 PM CDT Sexual Orientation Not on file documented as of this encounter Last Filed Vital Signs Vital Sign Reading Time Taken Comments Blood Pressure 145/71 12/05/2022 8:10 PM CDT Pulse 72 12/05/2022 8:10 PM CDT Temperature 37 ??C (98.6 ??F) 12/05/2022 8:10 PM CDT Respiratory Rate 20 12/05/2022 8:10 PM CDT Oxygen Saturation 96% 12/05/2022 8:10 PM CDT Inhaled Oxygen Concentration - - Weight 79.3 kg (174 lb 12.8 oz) 12/05/2022 3:15 AM CDT Height 157.5 cm (5' 2.01 ) 11/30/2022 3:00 PM CD T Body Mass Index 31.96 11/30/2022 3:00 PM CDT documented in this encounter Discharge Summaries * Jad Mead MD - 12/05/2022 9:50 PM CDT Inpatient Discharge Summary Patient Name - Sixto Chakraborty Patient Age - 72 yrs Patient - [id number] [facility] - [id number] Document Creation Date: 12/09/2022 Admitting Provider, : Skip Fabian MD Discharge Provider, MD: No att. providers found Primary Care Physician at Discharge: Dunae Corcoran MD [phone] Admission Date: 11/30/2022 Discharge Date/time: 12/05/2022 Admission Location: [facility] LOS - LOS: 5 days DETAILS OF HOSPITAL STAY Hospital Problems/Diagnoses Principal Problem: STEFANO (acute kidney injury) (CMS/HCC) ([facility]) Active Problems: Type 2 diabetes mellitus with diabetic neuropathy, with long-term current use of insulin (CMS/HCC) (HCC) Gastroesophageal reflux disease Toe necrosis (CMS/HCC) ([facility]) Anemia in stage 4 chronic kidney disease ([facility]) Reason for Hospitalization: 72 y.o. female pt with a PMHx of but not limited to arthritis, dementia, depression, diabetic neuropathy, hyperlipidemia, hypertension, renal disorder, schizophrenia, type2 diabetes who presented to the ED from jail in [place] with reports of increased swelling over the last several weeks since she was admitted to short-term nursing facility. Patient not able to provide reliable history Per chart review: patient previously was on scheduled Lasix but jail had not been giving the patient any Lasix stating it was a p.r.n. order. Pt previously hada prescription for 20 mg of Lasix once a day. She is in rehab for her toe and has a PICC line Notable labs include elevated creatinine 2.70 from baseline 1.8, albumin is 2.9, H GB 7.9, HCT 25.0, anemia, x-ray who right great toe reveals osteomyelitis Hospital Course: Acute renal failure superimposed on CKD stage 4 Right toe Chronic Osteomyelitis POA Acute on Chronic Diastolic CHF exacerbation POA Type 2 DM Hypertension Anemia of chronic disease Plan - hold ARBs, nephrology following - creatinine stable, as per nephrology - patient was seen in [facility] In October and patient and family had refused amputation of the toe. - currently antibiotics being adjusted as per ID - improving shortness of breath, resumed lasix on discharge - recent echo suggestive of diastolic dysfunction - accucheks better controlled, continue current dosing of insulin - BP well controlled, continue to monitor BP - low Hb with low iron, iron supplementation, started on erythropoietin as per nephrology. Follow up as outpatient. Patient cleared by nephrology and ID for discharge. Discussed with patient's daughter Ursula and explained about diagnosis and follow up with Nephrology. Discharge today. Discharge Details Physical Exam at Discharge: Discharge Condition: fair Pulse: 72 Resp: 20 BP: 145/71 Temp: 37 ??C (98.6 ??F) Weight: 79.3 kg (174 lb 12.8 oz) Pertinent Exam Findings at Discharge: Physical Exam Vitals reviewed. Constitutional: Appearance: Normal appearance. She is obese. HENT: Head: Normocephalic and atraumatic. Right Ear: External ear normal. Left Ear: External ear normal. Nose: Nose normal. Mouth/Throat: Mouth: Mucous membranes are moist. Pharynx: Oropharynx is clear. Eyes: Extraocular Movements: Extraocular movements intact. Conjunctiva/sclera: Conjunctivae normal. Pupils: Pupils are equal, round, and reactive to light. Cardiovascular: Rate and Rhythm: Normal rate and regular rhythm. Pulses: Normal pulses. Heart sounds: Normal heart sounds. Pulmonary: Effort: Pulmonary effort is normal. Breath sounds: Normal breath sounds. Abdominal: General: Bowel sounds are normal. Palpations: Abdomen is soft. Musculoskeletal: General: Normal range of motion. Comments: Right toe - swollen with mild erythema Skin: General: Skin is warm. Capillary Refill: Capillary refill takes less than 2 seconds. Neurological: General: No focal deficit present. Mental Status: She is alert. Mental status is at baseline. Psychiatric: Mood and Affect: Mood normal. Behavior: Behavior normal. Thought Content: Thought content normal. Judgment: Judgment normal. Discharge Disposition: Discharge to home, home health skilled care Code Status at Discharge: Full Code Active Issues & Recommended Plan for Follow-up: Allergies: Patient has no known allergies. Discharge Medications: Your medication list START taking these medications Instructions Last Dose Given Next Dose Due cefTRIAXone syringe Commonly known as: ROCEPHIN Infuse 20 mL (2,000 mg total) into a venous catheter daily doxycycline monohydrate 100 mg capsule Commonly known as: MONODOX Take 1 capsule (100 mg total) by mouth 2 (two) times a day epoetin isaiah-epbx (10,000 unit/mL) solution Commonly known as: RETACRIT Inject 1 mL (10,000 Units total) under the skin once a week ferrous sulfate 325 mg (65 mg of elemental iron) tablet Take 1 tablet (325 mg total) by mouth 2 (two) times a day CHANGE how you take these medications Instructions Last Dose Given Next Dose Due amLODIPine 10 mg tablet Commonly known as: NORVASC What changed: medication strength how much to take Take 1 tablet (10 mg total) by mouth nightly furosemide 40 mg tablet Commonly known as: LASIX What changed: when to take this reasons to take this Another medication with the same name was removed. Continue taking this medication, and follow the directions you see here. Take 1 tablet (40 mg total) by mouth 2 (two) times a day insulin glargine 100 unit/mL (3 mL) pen for injection Commonly known as: LANTUS, BASAGLAR, SEMGLEE What changed: additional instructions Inject 25 Units under the skin nightly To start once blood sugars are consistently above 200 insulin lispro 100 unit/mL pen for injection Commonly known as: HumaLOG, ADMELOG What changed: how much to take Inject 7 Units under the skin 3 (three) times a day before meals plus sliding scale insulin lispro 100 unit/mL pen for injection Commonly known as: HumaLOG, ADMELOG What changed: Another medication with the same name was changed. Make sure you understand how and when to take each. Inject 0-12 Units under the skin 3 (three) times a day before meals per sliding scale --> BG 0-140 = 0 units BG 141-174 = 2 units BG 175-199 = 4 units BG 200-249 = 6 units BG 250-299 = 8 units BG 300-349 = 10 units BG 350-400 = 12 units BG >400 = call pregabalin 75 mg capsule Commonly known as: LYRICA What changed: medication strength how much to take Take 1 capsule (75 mg total) by mouth nightly CONTINUE taking these medications Instructions Last Dose Given Next Dose Due acetaminophen 325 mg tablet Commonly known as: TYLENOL Take 2 tablets (650 mg total) by mouth every 6 (six) hours as needed for pain albuterol HFA 90 mcg/actuation inhaler Commonly known as: ProAir HFA Inhale 2 puffs every 4 (four) hours as needed for wheezing or shortness of breath ascorbic acid 500 mg tablet,chewable Commonly known as: VITAMIN C Take 1 tablet/chew tab (500 mg total) by mouth 2 (two) times a day atorvastatin 20 mg tablet Commonly known as: LIPITOR Take 1 tablet (20 mg total) by mouth nightly benztropine 1 mg tablet Commonly known as: COGENTIN Take 1.5 tablets (1.5 mg total) by mouth nightly bisacodyL 10 mg suppository Commonly known as: DULCOLAX Insert 1 suppository (10 mg total) into the rectum daily as needed for constipation bisacodyL 10 mg/30 mL enema Commonly known as: FLEET-BISACODYL Insert 30 mL (10 mg total) into the rectum daily as needed for constipation (if no results 24 hoursafter suppository) carvediloL 12.5 mg tablet Commonly known as: COREG Take 1 tablet (12.5 mg total) by mouth 2 (two) times a day with meals conner.stocking,thigh,reg,med misc Wear as much as possible dulaglutide 1.5 mg/0.5 mL pen injector Commonly known as: TRULICITY Inject 0.5 mL (1.5 mg total) under the skin once a week on Mondays famotidine 10 mg tablet Commonly known as: PEPCID Take 1 tablet (10 mg total) by mouth daily FreeStyle Madhav 2 [place] misc Doctor's comments: May or may not need Generic drug: flash glucose scanning reader Use to continually monitor glucose FreeStyle Madhav 2 Sensor kit Doctor's comments: Type 2 diabetic, on 2 insulin Generic drug: flash glucose sensor Use to continually monitor glucose, change every 14 days lidocaine 4 % adhesive patch,medicated Commonly known as: ASPERCREME Place 1 patch on the skin daily to lower back magnesium citrate solution Take 296 mL by mouth daily as needed (for constipation if no results after enema) magnesium hydroxide 80 mg/mL (33.3 mg/mL as elemental magnesium) Commonly known as: MILK OF MAGNESIA Take 30 mL by mouth nightly as needed (constipation if no bowel movement in 3 days) multivitamin with minerals tablet Take 1 tablet by mouth daily polyethylene glycol 17 gram packet Commonly known as: MIRALAX Take 1 packet (17 g total) by mouth daily as needed for constipation Pro-Stat Renal Care 15-100 gram-kcal/30 mL liquid Generic drug: amino acids-protein hydr-fiber Take 30 mL by mouth 2 (two) times a day risperiDONE 2 mg tablet Doctor's comments: Discontinue Haldol Commonly known as: RisperDAL Take 1 tablet (2 mg total) by mouth nightly Saccharomyces boulardii 250 mg capsule Commonly known as: FLORASTOR Take 1 capsule (250 mg total) by mouth 2 (two) times a day while receiving antibiotic therapy STOP taking these medications losartan 100 mg tablet Commonly known as: COZAAR metroNIDAZOLE 500 mg tablet Commonly known as: FLAGYL vancomycin IVBP Where to Get Your Medications These medications were sent to [id number] - [address] [facility] [place] [address] amLODIPine 10 mg tablet ferrous sulfate 325 mg (65 mg of elemental iron) tablet furosemide 40 mg tablet pregabalin 75 mg capsule You can get these medications from any pharmacy Bring a paper prescription for each of these medications cefTRIAXone syringe doxycycline monohydrate 100 mg capsule Information about where to get these medications is not yet available Ask your nurse or doctor about these medications epoetin isaiah-epbx (10,000 unit/mL) solution insulin glargine 100 unit/mL (3 mL) pen for injection insulin lispro 100 unit/mL pen for injection Time Spent in Discharge Process: I have spent 40 minutes on discharge planning activities. Time spent was on Coordination of care, Follow up , Counselling with patient/family, discharge exam, parent/patient education, and Other provider communication Test Results Pending at Discharge (If Blank, None Found): Pending Labs Order Current Status Creatine kinase (CK), total In process Vancomycin level random In process Operative Procedures Performed (If Blank, None Found): Outpatient Follow-Up: Future Appointments Date Time Provider Department Center 12/10/2022 1:15 PM Santo Vail MD [facility] Specialty 02/18/2023 12:15 PM Nikhil Jones MD [facility] Specialty 03/11/2023 1:45 PM Lizett Edwards MD [id number] Specialty Contact Information for Follow-ups [facility] Home Care Services Specialty: Home Health and Hospice [address] [facility] [address] Next Steps: Follow up Questions: Service Line: Home Health and Infusion Primary disciplines requested: Long-Term Home Health Services: Labs IV Catheter Maintenance IV Catheter Types: PICC Line Number of Lumens: 2 IV Catheter Flush Care Instructions: Evaluate and manage the IV catheter to maintain patency IV Catheter Dressing Change Instructions: Evaluate, manage, and change the dressing weekly Labs: CBC with Differential CMP ESR (Sedimentation Rate) CBC frequency: Once a week CMP frequency: Once a week ESR (Sedimentation Rate) frequency: Once a week Date to Start Labs: 12/04/2022 Infusion Services: Infusion Therapy Labs (Infusion) Infusion Therapy: Antibiotic Therapy How many antibiotic therapies: 2 ABX Medication 1: Rocephin ABX Dose 1: 2 g ABX Route 1: IV ABX Frequency 1: Q 24 hours ABX Therapy Duration 1: 40 days ABX Medication 2: Doxycycline ABX Dose 2: 100 mg ABX Route 2: P.o. ABX Frequency 2: Twice a day ABX Therapy Duration 2: 40 days Physician to follow patient's care (the person listed here will be responsible for signing ongoing orders): Referring Provider Requested Start of Care Date: 24-48 hours I certify that, based on my findings, the following services are medically necessary skilled home health services: IV Catheter Maintenance Labs Wound/Ostomy Care I certify that, based on my findings, the following services are medically necessary skilled home infusion services: IV Catheter Maintenance (Infusion) Labs (Infusion) Other (Infusion) Comment: Wound care I attest that I or another qualified licensed provider saw the patient 90 days prior to or 30 days post admission and this face to face encounter meets the necessary Home Health requirements. The face to face encounter occurred on (date): 12/03/2022 The encounter with the patient was in whole, or in part, for the following medical condition, whichis the primary reason for home health care. (List medical condition): Osteomyelitis of right foot 1st digit Clinical findings that support the need for home care: Other Comment: Osteomyelitis of right foot requiring IV antibiotic therapy I certify that my clinical findings support patient's homebound status. 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 Weekly lab draw Referral Status: Some Visits Scheduled Duane Corcoran MD Specialty: Family Medicine [address] [address] Next Steps: Follow up Instructions: Follow up in one week Questions: Instructions for follow-up (appointment date and time): Follow up in one week To provider: DUANE CORCORAN Omer M., MD Specialty: Infectious Diseases, Internal Medicine Relationship: Consulting Physician [address] [place] [id number] Next Steps: Follow up Instructions: Follow up in 3 weeks for MRI Questions: To provider: SHWETHA RAHMAN Instructions for follow-up (appointment date and time): Follow up in 3 weeks for MRI Lizett Edwards MD Specialty: Nephrology, Internal Medicine Relationship: Consulting Physician [address] [place] [address] Next Steps: Follow up Instructions: Follow up in 2 weeks Questions: To provider: LIZETT EDWARDS Instructions for follow-up (appointment date and time): Follow up in [address] [facility] Home Care Services Specialty: Home Health and Hospice [address] [facility] [address] Next Steps: Follow up Questions: Service Line: Home Health Primary disciplines requested: Long-Term Home Health Services: Labs Labs: BMP CBC with Differential BMP frequency: Once a week CBC frequency: Once a week Date to Start Labs: 12/08/2022 Requested Start of Care Date: Next Week Physician to follow patient's care (the person listed here will be responsible for signing ongoing orders): PCP I attest that I or another qualified licensed provider saw the patient 90 days prior to or 30 days post admission and this face to face encounter meets the necessary Home Health requirements. The face to face encounter occurred on (date): 12/05/2022 The encounter with the patient was in whole, or in part, for the following medical condition, whichis the primary reason for home health care. (List medical condition): CKD 4, Right toe osteomyelitis I certify that, based on my findings, the following services are medically necessary skilled home health services: Labs Clinical findings that support the need for home care: Medical condition requiring skilled assessment/education I certify that my clinical findings support patient's homebound status. Homebound criteria met because: Poor endurance Referral Status: Pending Authorization Duane Corcoran MD Specialty: Family Medicine Relationship: PCP - General [address] [place] [address] [address] [facility] [address] Next Steps: Follow up Please schedule an appointment with the following provider(s): [facility] Home Care Services [address] [facility] [address] Duane Corcoran MD [address] [facility] [address] [facility] [phone] Follow up in one week Shwetha Rahman MD [address] [facility] [address] [place] [phone] Follow up in 3 weeks for MRI Lizett Edwards MD [address] [facility] [address] [facility] [phone] Follow up in [address] [facility] Home Care Services [address] [facility] [address] Duane Corcoran MD [address] [facility] [address] [facility] [phone] ANCILLARY INFORMATION Other Procedures & Diagnostic Tests: [...] Rate: 68 bpm RR Interval: 873 msec ID Interval: 175 msec QRS Duration: 73 msec QT Interval: 422 msec QTC Interval: 440 msec P-R-T [place]: 98 - 20 - 20 degrees SINUS RHYTHM LOW QRS VOLTAGE IN PRECORDIAL LEADS [QRS DEFLECTION < 1.0 mV IN CHEST LEADS] BORDERLINE ECG Compared to previous ECG the low-voltage is new Electronically Signed By: Audie Gould MD, [facility] Recent Labs: Recent Labs Lab Units 12/09/22 0528 12/08/22 0801 12/06/22 1451 WBC K/cumm 8.3 8.0 8.6 HEMOGLOBIN g/dL 7.5* 7.2* 7.7* HEMATOCRIT % 24.3* 23.2* 25.2* PLATELETS K/cumm 293 294 288 Recent Labs Lab Units 12/09/22 0528 12/08/22 0801 12/06/22 1451 WBC K/cumm 8.3 8.0 8.6 HEMOGLOBIN g/dL 7.5* 7.2* 7.7* HEMATOCRIT % 24.3* 23.2* 25.2* PLATELETS K/cumm 293 294 288 NEUTROS PCT % 62.0 56.6 68.7 LYMPHS PCT % 24.4 29.1 20.5 MONOS PCT % 10.3 10.4 7.8 EOS PCT % 2.5 3.0 2.0 Recent Labs Lab Units 12/09/22 1218 12/09/22 0808 12/09/22 0528 12/08/22 1222 12/08/22 0801 12/06/22 1452 12/06/22 1451 SODIUM mmol/L -- -- 143 -- 141 -- 137 POTASSIUM PLASMA mmol/L -- -- 4.6 -- 4.6 -- 5.1* CHLORIDE mmol/L -- -- 111* -- 109 -- 106 CO2 mmol/L -- -- 20* -- 20* -- 20* BUN SERUM mg/dL -- -- 68* -- 67* -- 51* CREATININE mg/dL -- -- 2.68* -- 2.58* -- 2.37* HOX-VYY-SFFAGDB mL/min/1.73 m2 -- -- 18 -- 19 -- 21 GLUCOSE mg/dL -- -- 92 -- 119 -- 206* POC GLUCOSE MONITOR mg/dL 111 < > -- < > -- < > -- CALCIUM mg/dL -- -- 8.9 -- 9.2 -- 9.2 ALBUMIN g/dL -- -- 2.9* -- 2.9* -- 3.2* PHOSPHORUS PLASMA mg/dL -- -- 5.5* -- 5.5* -- -- < > = values in this interval not displayed. Recent Labs Lab Units 12/09/22 1218 12/09/22 0808 12/09/22 0528 12/08/22 1222 12/08/22 0801 12/06/22 1452 12/06/22 1451 12/04/22 0724 12/04/22 0623 12/03/22 1615 12/03/22 1252 SODIUM mmol/L -- -- 143 -- 141 -- 137 < > 140 -- 138 POTASSIUM PLASMA mmol/L -- -- 4.6 -- 4.6 -- 5.1* < > 4.7 -- 4.6 CHLORIDE mmol/L -- -- 111* -- 109 -- 106 < > 109 -- 105 CO2 mmol/L -- -- 20* -- 20* -- 20* < > 22 -- 21* ANIONGAP mmol/L -- -- 12 -- 12 -- 11 < > 9 -- 12 GLUCOSE mg/dL -- -- 92 -- 119 -- 206* < > 189 -- 155 POC GLUCOSE MONITOR mg/dL 111 125 -- < > -- < > -- < > -- < > -- BUN SERUM mg/dL -- -- 68* -- 67* -- 51* < > 55* -- 52* CREATININE mg/dL -- -- 2.68* -- 2.58* -- 2.37* < > 2.50* -- 2.80* CALCIUM mg/dL -- -- 8.9 -- 9.2 -- 9.2 < > 8.7 -- 9.0 ALBUMIN g/dL -- -- 2.9* -- 2.9* -- 3.2* -- 2.9* -- 3.1* ALK PHOS Units/L -- -- -- -- -- -- 100 -- 107 -- 135* ALT Units/L -- -- -- -- -- -- 10 -- 7 -- 9 AST Units/L -- -- -- -- -- -- 14 -- 10 -- 13 BILIRUBIN TOTAL mg/dL -- -- -- -- -- -- <0.2 -- <0.2 -- <0.2 < > = values in this interval not displayed. Recent Labs Lab Units 12/06/22 1451 12/04/22 0623 12/03/22 1252 ALK PHOS Units/L 100 107 135* BILIRUBIN TOTAL mg/dL <0.2 <0.2 <0.2 TOTAL PROTEIN g/dL 7.6 6.7 7.8 ALT Units/L 10 7 9 AST Units/L 14 10 13 Recent Labs Lab Units 12/09/22 0528 12/08/22 0801 12/04/22 0623 MAGNESIUM mg/dL 2.3 2.4 2.2 Lab Results Component Value Date GLUCOSE 111 12/09/2022 GLUCOSE 125 12/09/2022 GLUCOSE 92 12/09/2022 Implant: Implants No active implants to display in this view. General Precautions (If Blank, None Found): Isolation Status: No active isolations Nutritional Status and in-house recommendations: Anticoagulation Indication: INR: No results found for requested labs within last 30 days. Warfarin Administrations (last 168 hours) None Oxygen Status: No data found. Wound Care Instructions Wound 11/30/22 ulceration to tip of right great (Active) Wound Status Healing 12/05/22 0800 Site Assessment Black;Dry 12/05/22 0800 Yenny-wound Assessment Intact 12/05/22 08 Dressing Open to air 12/05/22 0800 Other Instructions Ambulatory referral to Home Health Service Line: Home Health and Infusion Primary disciplines requested: Long-Term Home Health Services: Labs IV Catheter Maintenance IV Catheter Types: PICC Line Number of Lumens: 2 IV Catheter Flush Care Instructions: Evaluate and manage the IV catheter to maintain patency IV Catheter Dressing Change Instructions: Evaluate, manage, and change the dressing weekly Labs: CBC with Differential CMP ESR (Sedimentation Rate) CBC frequency: Once a week CMP frequency: Once a week ESR (Sedimentation Rate) frequency: Once a week Date to Start Labs: 12/04/2022 Infusion Services: Infusion Therapy Labs (Infusion) Infusion Therapy: Antibiotic Therapy How many antibiotic therapies: 2 ABX Medication 1: Rocephin ABX Dose 1: 2 g ABX Route 1: IV ABX Frequency 1: Q 24 hours ABX Therapy Duration 1: 40 days ABX Medication 2: Doxycycline ABX Dose 2: 100 mg ABX Route 2: P.o. ABX Frequency 2: Twice a day ABX Therapy Duration 2: 40 days Physician to follow patient's care (the person listed here will be responsible for signing ongoing orders): Referring Provider Requested Start of Care Date: 24-48 hours I certify that, based on my findings, the following services are medically necessary skilled home health services: IV Catheter Maintenance Labs Wound/Ostomy Care I certify that, based on my findings, the following services are medically necessary skilled home infusion services: IV Catheter Maintenance (Infusion) Labs (Infusion) Other (Infusion) Comment: Wound care I attest that I or another qualified licensed provider saw the patient 90 days prior to or 30 days post admission and this face to face encounter meets the necessary Home Health requirements. The face to face encounter occurred on (date): 12/03/2022 The encounter with the patient was in whole, or in part, for the following medical condition, whichis the primary reason for home health care. (List medical condition): Osteomyelitis of right foot 1st digit Clinical findings that support the need for home care: Other Comment: Osteomyelitis of right foot requiring IV antibiotic therapy I certify that my clinical findings support patient's homebound status. 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 Weekly lab draw Ambulatory referral to Home Health Service Line: Home Health Primary disciplines requested: Long-Term Home Health Services: Labs Labs: BMP CBC with Differential BMP frequency: Once a week CBC frequency: Once a week Date to Start Labs: 12/08/2022 Requested Start of Care Date: Next Week Physician to follow patient's care (the person listed here will be responsible for signing ongoing orders): PCP I attest that I or another qualified licensed provider saw the patient 90 days prior to or 30 days post admission and this face to face encounter meets the necessary Home Health requirements. The face to face encounter occurred on (date): 12/05/2022 The encounter with the patient was in whole, or in part, for the following medical condition, whichis the primary reason for home health care. (List medical condition): CKD 4, Right toe osteomyelitis I certify that, based on my findings, the following services are medically necessary skilled home health services: Labs Clinical findings that support the need for [...] headache, visual disturbances, weakness and speech changes [facility] Home Infusion will supply IV medication and supplies, if any questions [phone] [facility] [place] provide [place] [facility]. If you are not contacted by your nurse within 24 Hours from your hospital discharge, please call [phone] Active LDAs (If Blank, None Found): Peripheral IV 12/06/22 20 G Right Antecubital (Active) Placement Date/Time: 12/06/22 1502 Type: Angiocath Size (Gauge): 20 G Location Orientation: Right Location: Antecubital Site Prep: Alcohol Local Anesthetic: None Technique: Anatomical landmarks Inserted by: SWATI LAY Insertion attempts: 1 Patient Emergency Contact: Primary Emergency Contact: Areli Gayle, Bandar Immunization Status at Discharge Immunization History Administered Date(s) Administered Influenza Nasal, Unspecified 04/17/2017 Influenza, Quadrivalent, High Dose, Preservative Free, Intrr 04/02/2020, 03/07/2021, 04/01/2022, 08/07/2022 Influenza, Trivalent, Adjuvanted, Intramuscular 04/06/2019 Influenza, Trivalent, Intramuscular 04/17/2017 Pfizer SARS-CoV-2 Monovalent Vaccination (12+ Yrs) PURPLE 09/22/2020, 10/13/2020, 06/11/2021 Pneumococcal Conjugate PCV 13 03/31/2017 Pneumococcal Polysaccharide PPV23 01/20/2019 Jad Mead MD documented in this encounter Discharge Instructions * Discharge Instr - Other Orders* Lorie Voss - 12/05/2022 2:[address] [facility] Home Infusion will supply IV medication and supplies, if any questions [phone] [facility] [place] [facility]. If you are not contacted by your nurse within 24 Hours from your hospital discharge, please call [phone] documented in this encounter Medications at Time of Discharge lidocaine (ASPERCREME) 4 % adhesive patch,medicated Place 1 patch on the skin daily as needed to lower back acetaminophen (TYLENOL) 325 mg tablet Take 2 tablets (650 mg total) by mouth every 6 (six) hours as needed for pain 3 albuterol HFA (ProAir HFA) 90 mcg/actuation inhalerIndication [...] 30 tablet 1 12/05/2022 3 amLODIPine (NORVASC) 5 mg tablet Take 1 tablet (5 mg total) by mouth nightly 30 tablet 11/13/2022 3 ascorbic acid 500 mg tablet,chewable Take 1 tablet/chew tab (500 mg total) by mouth 2 (two) times a day 3 atorvastatin (LIPITOR) 20 mg tablet Take 1 tablet (20 mg total) by mouth nightly 3 benztropine (COGENTIN) 1 mg tablet Take 1.5 tablets (1.5 mg total) by mouth nightly 45 tablet 11/13/2022 4 bisacodyL (DULCOLAX) 10 mg suppositoryIndica tions:constipatio n Insert 1 suppository (10 mg total) into the rectum daily as needed for constipation 3 bisacodyL (FLEET-BISACODYL) 10 mg/30 mL enema Insert 30 mL (10 mg total) into the rectum daily as needed for constipation (if no results 24 hours after suppository) 3 carvediloL (COREG) 12.5 mg tablet Take 1 tablet (12.5 mg total) by mouth 2 (two) times a day with meals 60 tablet 11/13/2022 3 cefTRIAXone (ROCEPHIN) syringeIndication s:Other (complete free text reason below),Osteomyeli tis Infuse 20 mL (2,000 mg total) into a venous catheter daily 840 mL 12/04/2022 3 conner.stocking, thigh,reg,med miscIndications:P eripheral edema Wear as much as possible 2 each 1 05/28/2021 4 doxycycline monohydrate (MONODOX) 100 mg capsuleIndication s:Skin/Soft Tissue Infection Take 1 capsule (100 mg total) by mouth 2 (two) times a day 60 capsule 1 12/03/2022 3 dulaglutide (TRULICITY) 1.5 mg/0.5 mL pen injector Inject 0.5 mL (1.5 mg total) under the skin once a week on Mondays 3 epoetin isaiah-epbx (RETACRIT) (10,000 unit/mL) solutionIndicatio ns:Anemia NOT associated with chemotherapy, radiation, or ESRD,anemia [...] flash glucose scanning reader (FreeStyle Madhav 2 [place]) miscIndications:T ype 2 diabetes mellitus with diabetic neuropathy, with long-term current use of insulin ([facility]) Use to continually monitor glucose 1 each 10/01/2021 3 flash glucose sensor (FreeStyle Madhav 2 Sensor) kitIndications:Ty pe 2 diabetes mellitus with diabetic neuropathy, with long-term current use of insulin ([facility]) Use to continually monitor glucose, change every 14 days 6 kit 3 2022 3 furosemide (LASIX) 20 mg tabletIndications :Edema Take 1 tablet (20 mg total) by mouth daily 11/29/2022 3 furosemide (LASIX) 40 mg tablet Take 1 tablet (40 mg total) by mouth daily as needed (Weight Gain >4lbs above dry weight.) 15 tablet 11/13/2022 3 furosemide (LASIX) 40 mg tablet Take 1 tablet (40 mg total) by mouth 2 (two) times a day 60 tablet 1 12/05/2022 3 insulin glargine 100 unit/mL (3 mL) pen for injection Inject 25 Units under the skin nightly To start once blood sugars are consistently above 200 12/05/2022 3 insulin lispro (HumaLOG, ADMELOG) 100 unit/mL [...] 12 units BG >400 = call 3 insulin lispro (HumaLOG, ADMELOG) 100 unit/mL pen for injection Inject 7 Units under the skin 3 (three) times a day before meals plus sliding scale 12/05/2022 3 losartan (COZAAR) 100 mg tablet Take 1 tablet (100 mg total) by mouth daily 30 tablet 11/14/2022 3 magnesium citrate solution Take 296 mL by mouth daily as needed (for constipation if no results after enema) 3 magnesium hydroxide (MILK OF MAGNESIA) suspension 400 mg/5 mL Take 30 mL by mouth nightly as needed (constipation if no bowel movement in 3 days) 3 metroNIDAZOLE (FLAGYL) 500 mg tabletIndications :Bone/Joint Infection Take 1 tablet (500 mg total) by mouth 3 (three) times a day 90 tablet 1 11/13/2022 3 multivitamin with minerals tablet Take 1 tablet by mouth daily 3 polyethylene glycol (MIRALAX) 17 gram packetIndications :constipation Take 1 packet (17 g total) by mouth daily as needed for constipation 3 pregabalin (LYRICA) 150 mg capsuleIndication s:Other diabetic neurological complication associated with type 2 diabetes mellitus (HCC) Take 1 capsule (150 mg total) by mouth nightly 30 capsule 11/13/2022 3 pregabalin (LYRICA) 75 mg capsule Take [...] while receiving antibiotic therapy 11/14/2022 3 vancomycin IVBPIndications:B one/Joint Infection,Celluli tis,Osteomyelitis ,Skin/Soft Tissue Infection Infuse 200 mL (1 g total) into a venous catheter every other day for cellulitis of right great toe 11/19/2022 3 documented as of this encounter Ordered Prescriptions Prescription Sig Dispense Quantity Refills Last Filled Start Date End Date insulin glargine 100 unit/mL (3 mL) pen for injection Inject 25 Units under the skin nightly To start once blood sugars are consistently above 200 12/05/2022 3 ferrous sulfate 325 mg (65 mg of elemental iron) tabletIndications :Iron Deficiency Anemia Take 1 tablet (325 mg total) by mouth 2 (two) times a day 60 tablet 1 12/05/2022 3 epoetin isaiah-epbx (RETACRIT) (10,000 unit/mL) solutionIndicatio ns:Anemia NOT associated with chemotherapy, radiation, or ESRD,anemia of ckd Inject 1 mL (10,000 Units total) under the skin once a week 12/05/2022 3 pregabalin (LYRICA) 75 mg capsule Take 1 capsule (75 mg total) by mouth nightly 30 capsule 12/05/2022 3 insulin lispro (HumaLOG, ADMELOG) 100 unit/mL pen for injection Inject 7 Units under the skin 3 (three) times a day before meals plus sliding scale 12/05/2022 3 furosemide (LASIX) 40 mg tablet Take 1 tablet (40 mg total) by mouth 2 (two) times a day 60 tablet 1 12/05/2022 3 amLODIPine (NORVASC) 10 mg tablet Take 1 tablet (10 mg total) by mouth nightly 30 tablet 1 12/05/2022 3 doxycycline monohydrate (MONODOX) 100 mg capsuleIndication s:Skin/Soft Tissue Infection Take 1 capsule (100 mg total) by mouth 2 (two) times a day 60 capsule 1 12/03/2022 3 cefTRIAXone (ROCEPHIN) syringeIndication s:Other (complete free text reason below),Osteomyeli tis Infuse 20 mL (2,000 mg total) into a venous catheter daily 840 mL 12/04/2022 3 documented in this encounter Discharge Disposition Disposition Code Departure Means Destination Comment s Discharge to home, home health skilled care Car Patient went home with daughter documented in this encounter Progress Notes * Rimma Soriano RN - 12/05/2022 2:18 PM CDT CARE COORDINATION DISCHARGE PLANNING HOME: Patient will d/c home with support from children. Transportation home provided by daughter Areli. Patient/Family denies needs or barriers to intermediate HEALTH: Home Healthcare needed: [facility] list provided, and patient preferences taken. [facility] has been set up with: [facility] Home Health [address] [place] [address] [address] Above [facility] has accepted patient. With plan for start of care on 12/06. Pt/family aware. [facility] info added to AVS. Order pinned. Bedside RN to fax order and AVS to above fax number at d/c. HOME WITH HOME INFUSION: Pt has been set up with [facility]fusion ([phone]) to complete ceftriaxone. Please see noted from [facility] for further details. . ANTICIPATED D/C DATE: 12/05/22 CM will continue to follow for progression of care, if further needs for discharge or barriers to care arise, please reach out to care management team. Rimma Soriano RN 12/05/2022 2:18 PM * Nadege Cook, ELECTROLYSIS OPERATOR - 12/05/2022 11:22 AM CDT Physical Therapy 12/05/22 1122 PT Last Visit Session Type Treatment Safe Environment Arm band checked;Patient found in supine;Gait belt utilized for all out of bed mobility Subjective Agreeable to Therapy Subjective Comment reports lives with daughter, after walking note some sob, pt stated not from oxygen or breathing just from moving and working hard Precautions Precautions Bed/Chair Alarm Pain Assessment Pain Assessment No/denies pain Cognition Orientation Oriented to person Bed Mobility 1 Bed Mobility Comments 1 cga of 1 supine to sit Transfer 1 Trials/Comments 1 min of 1 sit to stand to sit Ambulation 1 Distance (ft) 1 50 Surface 1 Level tile Device 1 Wheeled walker Ambulation Comments 1 pt pleasant and cooperative, sharad short distance in room up in chair Safe Environment End of Therapy Session Safe Environment End of Therapy Session Patient left in chair;Chair alarm in place and activated;Call light within reach Recommendation/Plan PT Recommendation/Plan Long-Term Facility Patient at high risk for Falls;Readmission;Injury due to decreased ability to care for self;Injury due to reduced functional status;Injury at home as patient has not returned to prior level of function Educated the patient to the role of physical therapy, plan of care, goals of therapy, rationale forprogressing mobility. Patient was left with all needs met and equipment intact. Mobility and ADL status posted at bedsideand within medical record. Multi-Disciplinary Problems (from Physical Therapy) Active Problems Problem: PT Misc Start Date: 12/01/22 Goal Start Date Expected End Date End Date PT LTG - Misc 10 12/01/22 12/15/22 -- Goal Details: Will amb 20 ft with ww and min assist of 2 and cues-met Goal Start Date Expected End Date End Date PT STG - Misc 1 12/01/22 12/08/22 -- Goal Details: Will transfer bed<>chair with ww and min assist of 1 and cues-met Goal Start Date Expected End Date End Date PT STG - Misc 2 12/01/22 12/08/22 -- Goal Details: Will perform AROM ex x B LE with min cues-NT * Anat Davis COTA - 12/05/2022 10:20 AM CDT Occupational Therapy 12/05/22 1020 General Session Type Treatment OT Missed Visit Reason Patient declined (Pt refused OT at this time due to too tired ) Plan Plan Continue with current plan * Vianney Ndiaye NP - 12/05/2022 10:16 AM CDT Images from the original note were not included. Infectious Disease Daily Progress SUBJECTIVE Chief complaint of Right foot 1st digit distal phalanx osteomyelitis. Type 2 diabetes. Dementia Interval History: No new events overnight. Plan for discharge today. Pt denies any C/O's or concerns at this time. Remains afebrile. Denies any nausea or loose stools. OBJECTIVE Vitals: 24hr Min/Max: Temp Min: 36.4 ??C (97.6 ??F) Max: 36.8 ??C (98.3 ??F) Pulse Min: 66 Max: 88 BP Min: 131/67 Max: 151/76 Resp Min: 16 Max: 24 SpO2 Min: 93 % Max: 94 % Most Recent : Vitals: 12/05/22 0721 BP: 135/69 Pulse: 66 Resp: 20 Temp: 36.8 ??C (98.3 ??F) SpO2: 94% I/O last 2 completed shifts: In: 660 [P.O.:660] Out: 1100 [Urine:1100] I/O this shift: In: - Out: 500 [Urine:500] Physical Exam: Eyes: EOMI, SB, sclare non icteric Pharynx: No gross oral lesion, mucosa moist Lungs CTA, no wheezes Heart: [id number], no significant murmur Abd: +BS, Non Tender, Non distended Lower Ext: No gross edema, pedal artery pulses are palpable bilaterally. Right foot 1st digit with some distal necrosis noted - surrounding edema - dry with no erythema noted. Neuro: No new deficits appreciated Musculoskeletal: no gross joint erythema, edema, tenderness Skin: No new change. No rash 11/30/2022 Right foot Lab/Current Medication Review: Recent Results (from the past 24 hour(s)) POCT glucose Collection Time: 12/04/22 11:47 AM Result Value Ref Range Glucose, POC 192 70 - 199 mg/dL POCT glucose Collection Time: 12/04/22 3:42 PM Result Value Ref Range Glucose, POC 147 70 - 199 mg/dL POCT glucose Collection Time: 12/04/22 8:29 PM Result Value Ref Range Glucose, POC 169 70 - 199 mg/dL Glucose comment 1 Use This Result Glucose comment 2 RN/MD Notified POCT glucose Collection Time: 12/05/22 7:19 AM Result Value Ref Range Glucose, POC 138 70 - 199 mg/dL Glucose comment 1 Use This Result CBC with auto differential Collection Time: 12/05/22 7:35 AM Result Value Ref Range WBC 7.5 3.8 - 9.9 K/cumm Hgb 7.6 (L) 11.9 - 15.5 g/dL Hct 24.2 (L) 35.6 - 45.5 % Plt 280 150 - 400 K/cumm MPV 11.4 9.1 - 12.3 fL RBC 2.53 (L) 3.90 - 5.20 M/cumm MCV 95.7 81.3 - 96.4 fL MCH 30.0 27.1 - 33.3 pg MCHC 31.4 (L) 32.3 - 35.7 g/dL RDW CV 15.9 (H) 11.1 - 14.9 % RDW SD 54.7 (H) 35.7 - 48.1 fL NRBC abs 0.00 0.00 - 0.01 K/cumm Basic metabolic panel Collection Time: 12/05/22 7:35 AM Result Value Ref Range Sodium 142 135 - 145 mmol/L Potassium, pl 4.5 3.3 - 4.9 mmol/L Chloride 111 (H) 97 - 110 mmol/L CO2 23 22 - 32 mmol/L Anion gap 8 2 - 15 mmol/L BUN 51 (H) 8 - 25 mg/dL Creatinine 2.30 (H) 0.60 - 1.10 mg/dL Glucose 140 70 - 199 mg/dL Calcium 8.9 8.5 - 10.3 mg/dL Differential, auto Collection Time: 12/05/22 7:35 AM Result Value Ref Range Neutrophil abs 4.7 1.7 - 6.5 K/cumm Imm gran abs 0.0 0.0 - 0.1 K/cumm Lymphocyte abs 1.8 0.8 - 3.3 K/cumm Monocyte abs 0.7 0.2 - 0.8 K/cumm Eosinophil abs 0.2 0.0 - 0.5 K/cumm Basophil abs 0.0 0.0 - 0.1 K/cumm Neutrophil pct 63.5 % Imm gran pct 0.1 % Lymphocyte pct 23.6 % Monocyte pct 9.6 % Eosinophil pct 2.8 % Basophil pct 0.4 % eGFR Collection Time: 12/05/22 7:35 AM Result Value Ref Range eGFR 22 mL/min/1.73 m2 Current Facility-Administered Medications Medication Dose Route Frequency Provider Last Rate Last Admin albuterol HFA (PROVENTIL HFA,VENTOLIN HFA,PROAIR HFA) 90 mcg/actuation inhaler 2 puff 2 puff inhalation Q4H PRN (RT) Tahmina Charles NP amLODIPine (NORVASC) tablet 10 mg 10 mg oral Nightly Aylin Kauffman MD 10 mg at 12/04/222054 atorvastatin (LIPITOR) tablet 20 mg 20 mg oral Nightly Tahmina Charles NP 20 mg at 12/04/222053 benztropine (COGENTIN) tablet 1.5 mg 1.5 mg oral Nightly Tahmina Charles REPORTS DEVELOPER 1.5 mg at 12/04/222054 bisacodyL (DULCOLAX) suppository 10 mg 10 mg rectal Daily PRN Tahmina Charles NP Carrier Fluids for Secondary Infusion - 0.9% Sodium Chloride 30 mL intravenous PRN Tahmina Charles NP 30 mL at 11/30/22 165 carvediloL (COREG) tablet 12.5 mg 12.5 mg oral BID with meals (bkfst, dinner) Tahmina Charles NP 12.5 mg at 12/05/22 09 cefTRIAXone (ROCEPHIN) 2,000 mg/20 mL in sterile water (premix) 2,000 mg 2,000 mg intravenous Q24H [facility] Shwetha Rahman MD 2,000 mg at 12/05/22 0939 dextrose (GLUTOSE) 40 % gel 15 g 15 g oral Q15 Min PRN Tahmina Charles NP Or dextrose (D10W) 10% bolus 250 mL 250 mL intravenous Q15 Min PRN Tahmina Charles NP doxycycline monohydrate (MONODOX) capsule 100 mg 100 mg oral BID - [facility] Shwetha Rahman MD 100 mg at 12/05/22 0509 epoetin isaiah-epbx (RETACRIT) (10,000 unit/mL) injection 10,000 Units 10,000 Units subcutaneous Weekly - 2100 Rohan Funes MD 10,000 Units at 12/04/222102 famotidine (PEPCID) tablet 10 mg 10 mg oral Daily Tahmina Charles, REPORTS DEVELOPER 10 mg at 12/05/22926 ferrous sulfate tablet 325 mg 65 mg of elemental iron oral TID with meals Rohan Funes MD 325 mg at 12/05/22927 furosemide (LASIX) tablet 40 mg 40 mg oral BID DIURETIC Tucker Pitts MD 40 mg at 12/05/22927 glucagon injection 1 mg 1 mg intramuscular Q30 Min PRN Tahmina Charles NP heparin 5,000 unit/mL injection 5,000 Units 5,000 Units subcutaneous Q8H [facility] Aylin Kauffman MD 5,000 Units at 12/05/22 0509 insulin lispro (HumaLOG, ADMELOG) 100 unit/mL injection 0-10 Units 0-10 Units subcutaneous TID withmeals Tahmina Charles NP 2 Units at 12/04/22 1236 insulin lispro (HumaLOG, ADMELOG) 100 unit/mL injection 7 Units 0.083 Units/kg subcutaneous TID with meals Skip Fabian MD 7 Units at 12/05/22927 [Held by Provider] losartan (COZAAR) tablet 100 mg 100 mg oral Daily Skip Fabian MD multivitamin with folic acid 400 mcg tablet 1 tablet 1 tablet oral Daily Skip Fabian MD 1tablet at 12/05/22927 ondansetron ODT (ZOFRAN-ODT) disintegrating tablet 4 mg 4 mg oral Q6H PRN Tahmina Charles NP Or ondansetron (ZOFRAN) injection 4 mg 4 mg intravenous Q6H PRN Tahmina Charles, REPORTS DEVELOPER polyethylene glycol (MIRALAX) packet 17 g 17 g oral Daily PRN Tahmina Charles, REPORTS DEVELOPER pregabalin (LYRICA) capsule 75 mg 75 mg oral Nightly Tahmina Charles, REPORTS DEVELOPER 75 mg at 12/04/222054 risperiDONE (RisperDAL) tablet 2 mg 2 mg oral Nightly Tahmina Charles, REPORTS DEVELOPER 2 mg at 12/04/222054 sodium chloride (OCEAN) 0.65 % nasal spray 2 spray 2 spray each nostril BID PRN Rick North MD sodium chloride 0.9% flush 0.5-20 mL 0.5-20 mL intra-catheter Q8H SOL Tahmina Charles, REPORTS DEVELOPER 10 mL at12/05/22 0510 sodium chloride 0.9% flush 0.5-20 mL 0.5-20 mL intra-catheter PRN Tahmina Charles, JARAD A/P: Right foot 1st digit necrosis and osteomyelitis Initially treated with Flagyl and Vancomycin - transitioned to Doxycycline and Rocephin D/T STEFANO Clinically stable. Imaging indicative of osteomyelitis Family/POA declines amputation of the toe at present Will require prison antibiotic therapy with Rocephin and oral doxycyline for 42 days of therapy May proceed with discharge to SNF today from ID standpoint F/U with repeat MRI in 3-4 weeks as out pt T2DM Glycemic protocol Glucose range 138-192 STEFANO in addition to underlying CKD Antibiotics therapy previously adjusted to avoid nephrotoxic agents Monitor output Nephrology following My total encounter time on 12/05/2022 was 17 minutes which was spent in the activities documented inthe note. This includes time spent prior to the visit and after the visit in direct care of the patient. This time does not include time spent in any separately reportable services. Voice recognition software [employer] Direct was used dictate and transcribe this document. Steel Sampler variances may occur. Despite proofreading, typographical errors may occur. Vianney Ndiaye NP 12/05/2022 10:16 AM Cosigned by Shwetha Rahman MD at 12/05/2022 3:18 PM CDT Associated attestation - Shwetha Rahman MD - 12/05/2022 3:18 PM CDT I personally performed a substantive portion of this patient encounter in conjunction with JARAD Ndiaye. Chief complaint: Right foot 1st digit distal phalanx osteomyelitis. Dementia. Type 2 diabetes Subjective: No complaint today. No pain. No fevers. PICC line in place Physical exam: Constitutional: Alert and awake. Head and neck: Neck is supple no lymphadenopathy. Lungs: Good bilateral air entry. CVS: Positive S1 and positive S2. Abdomen: Positive bowel sounds nontender. Extremities: No edema. Right foot 1st digit distal eschar. Skin: No rash. Neurology: No focal neurological deficit Psych: No agitation or anxiety Assessment and plan: 1. Right foot 1st digit osteomyelitis secondary to contiguous infection from necrotic soft tissue. Patient has refused surgical intervention. Continue doxycycline and Rocephin day 4 of 42 days. Okay for discharge planning if okay with others. 2. Type 2 diabetes with blood sugars ranging between 138-192. Continue good glycemic control 3. Chronic kidney disease. 4. Dementia I spent 18 minutes of non-overlapping time managing the patient independent of REPORTS DEVELOPER Vianney Ndiaye today. * Tucker Pitts MD - 12/05/2022 8:41 AM CDT Nephrology Daily Progress Subjective Reason for follow up acute on CKD stage IIIB. Interval History: Feels better, sitting up. Denies any shortness of breath, fever, chills, nausea, vomiting. Objective Vitals: 24hr Min/Max: Temp Min: 36.4 ??C (97.6 ??F) Max: 36.8 ??C (98.3 ??F) Pulse Min: 66 Max: 88 BP Min: 131/67 Max: 151/76 Resp Min: 16 Max: 24 SpO2 Min: 93 % Max: 94 % Most Recent: Vitals: 12/05/22 0721 BP: 135/69 Pulse: 66 Resp: 20 Temp: 36.8 ??C (98.3 ??F) SpO2: 94% Physical Exam: Constitutional: Appears well-developed and well-nourished. [...] Normal mood and affect. Assessment/Plan Principal Problem: Acute renal failure superimposed on chronic kidney disease, unspecified CKD stage, unspecified acute renal failure type (HCC) Active Problems: Type 2 diabetes mellitus with diabetic neuropathy, with long-term current use of insulin (CMS/HCC) (HCC) Gastroesophageal reflux disease Toe necrosis (CMS/HCC) (HCC) Anemia in stage 4 chronic kidney disease (HCC) STEFANO on CKD stage IIIB in the setting of osteomyelitis of the toe, hemodynamics appears stable, may have a UTI and will check a postvoid residual. Can not rule out AIN secondary to antibiotic toxicityversus infectious GN, would consider changing vancomycin to alternative agent. Infectious Disease consultation pending. Does have lower extremity edema, echocardiogram pending, would continue cautious diuresis. Holding ARB. Renal function stable today and hopefully to start trending back towards baseline. Repeating labs in a.m.. 6.13 Serum creatinine slightly increased, possibly AIN secondary to antibiotics versus infectious GN, antibiotics have been switched and hopefully serum creatinine to plateau and trend back to baseline. Also discontinuing diuretics, does not appear significantly volume overloaded. Echocardiogram resultsnoted with adequate EF and diastolic dysfunction. Will add a CK, may need to send autoimmune serology tomorrow renal function continues to deteriorate. 6.14 Serum creatinine stable, possibly AIN versus vancomycin nephrotoxicity, hopefully creatinine to trend back to baseline. Hemodynamics remained stable. Continue to hold diuretics, does not appear significantly volume overloaded. CK unremarkable. Remains on alternate antibiotics for osteomyelitis. 6.15 Serum creatinine slightly improved today, possibly AIN versus vancomycin nephrotoxicity, holding diuretics, volume status improved. Hemoglobin decreased to 7, will initiate p.o. ferrous sulfate as mild iron deficiency and initiate erythropoietin analog. Transfuse as needed. On IV antibiotics for osteomyelitis 12/05/2022 Had some wheezing this morning. Volume status is acceptable without significant peripheral edema. Blood pressure is acceptable as well. Will restart oral diuretics. Will monitor volume status and utilize intravenous furosemide as needed. Currently on room air and not in any respiratory distress. Serum creatinine is down to 2.3. Potassium is acceptable. Serum creatinine is getting close to baseline. Avoid hypotension and nephrotoxins. * Jad Mead MD - 12/04/2022 2:39 PM CDT General Medicine Daily Progress Subjective Chief complaint of 72 years old F with PMH of Diabetes, HTN, CKD presented from [place] with increased swelling from past few weeks, she has been on IV abx for right great toe osteomyelitis. Interval History: Patient feeling better, shortness of breath and swelling has improved. 12/03/22 : Patient seen and examined, denies any complaints. Wants to go home, declining amputation. 12/04/22 : patient seen and examined. Sleepy today. Wants to go home, declines amputation. Hb noted to be trending down. Past Medical History: Diagnosis Date Arthritis Dementia (HCC) Depression Diabetic neuropathy (HCC) Hyperlipidemia Hypertension Renal disorder Schizophrenia (HCC) Type 2 diabetes mellitus (HCC) Objective Vitals: 24hr Min/Max: Temp Min: 36.4 ??C (97.6 ??F) Max: 36.7 ??C (98 ??F) Pulse Min: 67 Max: 82 BP Min: 130/74 Max: 156/69 Resp Min: 18 Max: 20 SpO2 Min: 92 % Max: 98 % Most Recent : Vitals: 12/04/22 0720 BP: 150/61 Pulse: 82 Resp: 20 Temp: 36.6 ??C (97.9 ??F) SpO2: 92% I/O last 2 completed shifts: In: 200 [P.O.:200] Out: 401 [Urine:401] I/O this shift: In: 660 [P.O.:660] Out: - Physical Exam: Physical Exam Vitals reviewed. Constitutional: Appearance: Normal appearance. She is obese. HENT: Head: Normocephalic and atraumatic. Right Ear: External ear normal. Left Ear: External ear normal. Nose: Nose normal. Mouth/Throat: Mouth: Mucous membranes are moist. Pharynx: Oropharynx is clear. Eyes: Extraocular Movements: Extraocular movements intact. Conjunctiva/sclera: Conjunctivae normal. Pupils: Pupils are equal, round, and reactive to light. Cardiovascular: Rate and Rhythm: Normal rate and regular rhythm. Pulses: Normal pulses. Heart sounds: Normal heart sounds. Pulmonary: Effort: Pulmonary effort is normal. Breath sounds: Normal breath sounds. Abdominal: General: Abdomen is flat. Bowel sounds are normal. Palpations: Abdomen is soft. Musculoskeletal: General: Normal range of motion. Cervical back: Normal range of motion and neck supple. Skin: General: Skin is warm. Capillary Refill: Capillary refill takes less than 2 seconds. Neurological: General: No focal deficit present. Mental Status: She is alert. Mental status is at baseline. Psychiatric: Mood and Affect: Mood normal. Behavior: Behavior normal. Thought Content: Thought content normal. Judgment: Judgment normal. Lab/Radiology/Diagnostic Review: Laboratory review: I have personally reviewed labs and my findings are worsening anemia and improving creatinine Recent Labs Lab Units 12/04/22 0623 12/03/22 1252 12/02/22 0545 WBC K/cumm 8.6 8.2 7.2 HEMOGLOBIN g/dL 7.2* 8.4* 7.3* HEMATOCRIT % 22.5* 25.8* 23.7* PLATELETS K/cumm 267 289 252 Recent Labs Lab Units 12/04/22 1147 12/04/22 0724 12/04/22 0623 12/03/22 1615 12/03/22 1252 12/02/22 0752 12/02/22 0545 SODIUM mmol/L -- -- 140 -- 138 -- 142 POTASSIUM PLASMA mmol/L -- -- 4.7 -- 4.6 -- 4.9 CHLORIDE mmol/L -- -- 109 -- 105 -- 110 CO2 mmol/L -- -- 22 -- 21* -- 22 BUN SERUM mg/dL -- -- 55* -- 52* -- 52* CREATININE mg/dL -- -- 2.50* -- 2.80* -- 2.90* GLUCOSE mg/dL -- -- 189 -- 155 -- 108 POC GLUCOSE MONITOR mg/dL 192 183 -- < > -- < > -- CALCIUM mg/dL -- -- 8.7 -- 9.0 -- 9.0 < > = values in this interval not displayed. Current Facility-Administered Medications Medication Dose Route Frequency Provider Last Rate Last Admin albuterol HFA (PROVENTIL HFA,VENTOLIN HFA,PROAIR HFA) 90 mcg/actuation inhaler 2 puff 2 puff inhalation Q4H PRN (RT) Tahmina Charles, REPORTS DEVELOPER amLODIPine (NORVASC) tablet 10 mg 10 mg oral Nightly Aylin Kauffman MD 10 mg at 12/01/222134 atorvastatin (LIPITOR) tablet 20 mg 20 mg oral Nightly Tahmina Charles, REPORTS DEVELOPER 20 mg at 12/01/222133 benztropine (COGENTIN) tablet 1.5 mg 1.5 mg oral Nightly Tahmina Charles, REPORTS DEVELOPER 1.5 mg at 12/01/222133 bisacodyL (DULCOLAX) suppository 10 mg 10 mg rectal Daily PRN Tahmina Charles NP Carrier Fluids for Secondary Infusion - 0.9% Sodium Chloride 30 mL intravenous PRN Tahmina Charles REPORTS DEVELOPER 30 mL at 11/30/22 1658 carvediloL (COREG) tablet 12.5 mg 12.5 mg oral BID with meals (bkfst, dinner) Tahmina Charles NP 12.5 mg at 12/02/22 1104 cefTRIAXone (ROCEPHIN) 2,000 mg/20 mL in sterile water (premix) 2,000 mg 2,000 mg intravenous Q24H [facility] Shwetha Rahman MD 2,000 mg at 12/02/22 1105 dextrose (GLUTOSE) 40 % gel 15 g 15 g oral Q15 Min PRN Tahmina Charles NP Or dextrose (D10W) 10% bolus 250 mL 250 mL intravenous Q15 Min PRN Tahmina Charles NP doxycycline monohydrate (MONODOX) capsule 100 mg 100 mg oral BID - Shwetha Andrews MD 100 mg at 12/02/22 0549 famotidine (PEPCID) tablet 10 mg 10 mg oral Daily Tahmina Charles NP 10 mg at 12/02/22 1105 furosemide (LASIX) 10 mg/mL injection 40 mg 40 mg intravenous Daily Skip Fabian MD 40 mg at 12/02/22 1104 glucagon injection 1 mg 1 mg intramuscular Q30 Min PRN Tahmina Charles NP heparin 5,000 unit/mL injection 5,000 Units 5,000 Units subcutaneous Q8H [facility] Aylin Kauffman MD 5,000 Units at 12/02/22 0549 insulin lispro (HumaLOG, ADMELOG) 100 unit/mL injection 0-10 Units 0-10 Units subcutaneous TID withmeals Tahmina Charles, REPORTS DEVELOPER 4 Units at 12/01/22 1717 insulin lispro (HumaLOG, ADMELOG) 100 unit/mL injection 0-5 Units 0-5 Units subcutaneous Nightly Tahmina Charles, REPORTS DEVELOPER 2 Units at 12/01/222134 [Held by Provider] insulin lispro (HumaLOG, ADMELOG) 100 unit/mL injection 7 Units 0.083 Units/kg subcutaneous TID with meals Skip Fabian MD [Held by Provider] losartan (COZAAR) tablet 100 mg 100 mg oral Daily Skip Fabian MD multivitamin with folic acid 400 mcg tablet 1 tablet 1 tablet oral Daily Skip Fabian MD 1tablet at 12/02/22 1105 ondansetron ODT (ZOFRAN-ODT) disintegrating tablet 4 mg 4 mg oral Q6H PRN Tahmina Charles, REPORTS DEVELOPER Or ondansetron (ZOFRAN) injection 4 mg 4 mg intravenous Q6H PRN Tahmina Charles, REPORTS DEVELOPER polyethylene glycol (MIRALAX) packet 17 g 17 g oral Daily PRN Tahmina Charles, REPORTS DEVELOPER pregabalin (LYRICA) capsule 75 mg 75 mg oral Nightly Tahmina Charles, REPORTS DEVELOPER 75 mg at 12/01/222133 risperiDONE (RisperDAL) tablet 2 mg 2 mg oral Nightly Tahmina Charles, REPORTS DEVELOPER 2 mg at 12/01/222133 sodium chloride (OCEAN) 0.65 % nasal spray 2 spray 2 spray each nostril BID PRN Rick North MD sodium chloride 0.9% flush 0.5-20 mL 0.5-20 mL intra-catheter Q8H SOL Tahmina Charles, REPORTS DEVELOPER 10 mL at12/02/22 0550 sodium chloride 0.9% flush 0.5-20 mL 0.5-20 mL intra-catheter PRN Tahmina Charles NP Assessment/Plan Principal Problem: Acute renal failure superimposed on chronic kidney disease, unspecified CKD stage, unspecified acute renal failure type (HCC) Active Problems: Type 2 diabetes mellitus with diabetic neuropathy, with long-term current use of insulin (CMS/HCC) (HCC) Gastroesophageal reflux disease Toe necrosis (CMS/HCC) (HCC) Anemia in stage 4 chronic kidney disease (HCC) Acute renal failure superimposed on CKD stage 4 Right toe Chronic Osteomyelitis POA Acute on Chronic Diastolic CHF exacerbation POA Type 2 DM Hypertension Anemia of chronic disease Plan - hold ARBs, nephrology following - creatinine stable, as per nephrology - patient was seen in [facility] In October and patient and family had refused amputation of the toe. - currently antibiotics being adjusted as per ID - improving shortness of breath, lasix discontinued as per nephrology - recent echo suggestive of diastolic dysfunction - accucheks better controlled, continue current dosing of insulin - BP well controlled, continue to monitor BP - low Hb with low iron, iron supplementation, started on erythropoietin as per nephrology. Hopefully discharge tomorrow if Hb stable DVT prophylaxis - heparin subcut My total encounter time on 12/04/2022 was 36 minutes which was spent in the activities documented inthe note. This includes time spent prior to the visit and after the visit in direct care of the patient. This time does not include time spent in any separately reportable services. * Rohan Funes MD - 12/04/2022 11:57 AM CDT Nephrology Daily Progress Subjective Reason for follow up acute on CKD stage IIIB. Interval History: Feels better, somnolent today Objective Vitals: 24hr Min/Max: Temp Min: 36.4 ??C (97.6 ??F) Max: 36.7 ??C (98 ??F) Pulse Min: 67 Max: 82 BP Min: 130/74 Max: 156/69 Resp Min: 18 Max: 20 SpO2 Min: 92 % Max: 98 % Most Recent: Vitals: 12/04/22 0720 BP: 150/61 Pulse: 82 Resp: 20 Temp: 36.6 ??C (97.9 ??F) SpO2: 92% Physical Exam: Constitutional: Appears well-developed and well-nourished. [...] Normal mood and affect. Assessment/Plan Principal Problem: Acute renal failure superimposed on chronic kidney disease, unspecified CKD stage, unspecified acute renal failure type ([facility]) Active Problems: Type 2 diabetes mellitus with diabetic neuropathy, with long-term current use of insulin ([facility]) ([facility]) Gastroesophageal reflux disease Toe necrosis ([facility]) ([facility]) Anemia in stage 4 chronic kidney disease ([facility]) STEFANO on CKD stage IIIB in the setting of osteomyelitis of the toe, hemodynamics appears stable, may have a UTI and will check a postvoid residual. Can not rule out AIN secondary to antibiotic toxicityversus infectious GN, would consider changing vancomycin to alternative agent. Infectious Disease consultation pending. Does have lower extremity edema, echocardiogram pending, would continue cautious diuresis. Holding ARB. Renal function stable today and hopefully to start trending back towards baseline. Repeating labs in a.m.. 6.13 Serum creatinine slightly increased, possibly AIN secondary to antibiotics versus infectious GN, antibiotics have been switched and hopefully serum creatinine to plateau and trend back to baseline. Also discontinuing diuretics, does not appear significantly volume overloaded. Echocardiogram resultsnoted with adequate EF and diastolic dysfunction. Will add a CK, may need to send autoimmune serology tomorrow renal function continues to deteriorate. 6.14 Serum creatinine stable, possibly AIN versus vancomycin nephrotoxicity, hopefully creatinine to trend back to baseline. Hemodynamics remained stable. Continue to hold diuretics, does not appear significantly volume overloaded. CK unremarkable. Remains on alternate antibiotics for osteomyelitis. 6.15 Serum creatinine slightly improved today, possibly AIN versus vancomycin nephrotoxicity, holding diuretics, volume status improved. Hemoglobin decreased to 7, will initiate p.o. ferrous sulfate as mild iron deficiency and initiate erythropoietin analog. Transfuse as needed. On IV antibiotics for osteomyelitis * Sheree Bello, ELECTROLYSIS OPERATOR - 12/04/2022 10:30 AM CDT Physical Therapy 12/04/22 1030 PT Last Visit PT Missed Visit Reason Asleep (Pt sleeping soundly; unable to stay awake.) * EctorVianney fraustoJARAD - 12/04/2022 8:31 AM CDT Images from the original note were not included. Infectious Disease Daily Progress SUBJECTIVE Chief complaint of Right diabetic foot infection of the 1st digit with osteomyelitis Interval History: No new events overnight. Pt denies any concerns or C/O's. Afebrile. Plan for discharge to SNF today. OBJECTIVE Vitals: 24hr Min/Max: Temp Min: 36.4 ??C (97.6 ??F) Max: 36.7 ??C (98 ??F) Pulse Min: 67 Max: 82 BP Min: 130/74 Max: 156/69 Resp Min: 18 Max: 20 SpO2 Min: 92 % Max: 98 % Most Recent : Vitals: 12/04/22 0720 BP: 150/61 Pulse: 82 Resp: 20 Temp: 36.6 ??C (97.9 ??F) SpO2: 92% I/O last 2 completed shifts: In: 200 [P.O.:200] Out: 401 [Urine:401] No intake/output data recorded. Physical Exam: Eyes: EOMI, SB, sclare non icteric Pharynx: No gross oral lesion, mucosa moist Lungs CTA, no wheezes Heart: [id number], no significant murmur Abd: +BS, Non Tender, Non distended Lower Ext: No gross edema, pedal artery pulses are palpable bilaterally. Right foot 1st digit with some distal necrosis noted - surrounding edema - dry with no erythema noted. Neuro: No new deficits appreciated Musculoskeletal: no gross joint erythema, edema, tenderness Skin: No new change. No rash 11/30/2022 Right foot Right foot Lab/Current Medication Review: Recent Results (from the past 24 hour(s)) POCT glucose Collection Time: 12/03/22 11:46 AM Result Value Ref Range Glucose, POC 147 70 - 199 mg/dL Glucose comment 1 Use This Result C3 complement Collection Time: 12/03/22 12:52 PM Result Value Ref Range Complement C3 92.0 90.0 - 180.0 mg/dL C4 complement Collection Time: 12/03/22 12:52 PM Result Value Ref Range Complement C4 19.4 10.0 - 40.0 mg/dL Magnesium Collection Time: 12/03/22 12:52 PM Result Value Ref Range Magnesium 2.2 1.4 - 2.5 mg/dL CBC with auto differential Collection Time: 12/03/22 12:52 PM Result Value Ref Range WBC 8.2 3.8 - 9.9 K/cumm Hgb 8.4 (L) 11.9 - 15.5 g/dL Hct 25.8 (L) 35.6 - 45.5 % Plt 289 150 - 400 K/cumm MPV 11.2 9.1 - 12.3 fL RBC 2.72 (L) 3.90 - 5.20 M/cumm MCV 94.9 81.3 - 96.4 fL MCH 30.9 27.1 - 33.3 pg MCHC 32.6 32.3 - 35.7 g/dL RDW CV 15.7 (H) 11.1 - 14.9 % RDW SD 55.0 (H) 35.7 - 48.1 fL NRBC abs 0.00 0.00 - 0.01 K/cumm Comprehensive metabolic panel Collection Time: 12/03/22 12:52 PM Result Value Ref Range Sodium 138 135 - 145 mmol/L Potassium, pl 4.6 3.3 - 4.9 mmol/L Chloride 105 97 - 110 mmol/L CO2 21 (L) 22 - 32 mmol/L Anion gap 12 2 - 15 mmol/L BUN 52 (H) 8 - 25 mg/dL Creatinine 2.80 (H) 0.60 - 1.10 mg/dL Glucose 155 70 - 199 mg/dL Calcium 9.0 8.5 - 10.3 mg/dL Bilirubin, total <0.2 0.1 - 1.2 mg/dL Protein, pl 7.8 6.5 - 8.5 g/dL Albumin 3.1 (L) 3.5 - 5.0 g/dL Alk phos 135 (H) 40 - 130 Units/L ALT 9 7 - 45 Units/L AST 13 10 - 45 Units/L Differential, auto Collection Time: 12/03/22 12:52 PM Result Value Ref Range Neutrophil abs 5.1 1.7 - 6.5 K/cumm Imm gran abs 0.0 0.0 - 0.1 K/cumm Lymphocyte abs 2.2 0.8 - 3.3 K/cumm Monocyte abs 0.6 0.2 - 0.8 K/cumm Eosinophil abs 0.2 0.0 - 0.5 K/cumm Basophil abs 0.0 0.0 - 0.1 K/cumm Neutrophil pct 62.4 % Imm gran pct 0.4 % Lymphocyte pct 26.8 % Monocyte pct 7.7 % Eosinophil pct 2.3 % Basophil pct 0.4 % eGFR Collection Time: 12/03/22 12:52 PM Result Value Ref Range eGFR 17 mL/min/1.73 m2 POCT glucose Collection Time: 12/03/22 4:15 PM Result Value Ref Range Glucose, POC 218 (H) 70 - 199 mg/dL Glucose comment 1 Use This Result POCT glucose Collection Time: 12/03/22 8:25 PM Result Value Ref Range Glucose, POC 184 70 - 199 mg/dL Glucose comment 1 Use This Result POCT glucose Collection Time: 12/04/22 5:42 AM Result Value Ref Range Glucose, POC 175 70 - 199 mg/dL Magnesium Collection Time: 12/04/22 6:23 AM Result Value Ref Range Magnesium 2.2 1.4 - 2.5 mg/dL CBC with auto differential Collection Time: 12/04/22 6:23 AM Result Value Ref Range WBC 8.6 3.8 - 9.9 K/cumm Hgb 7.2 (L) 11.9 - 15.5 g/dL Hct 22.5 (L) 35.6 - 45.5 % Plt 267 150 - 400 K/cumm MPV 11.3 9.1 - 12.3 fL RBC 2.39 (L) 3.90 - 5.20 M/cumm MCV 94.1 81.3 - 96.4 fL MCH 30.1 27.1 - 33.3 pg MCHC 32.0 (L) 32.3 - 35.7 g/dL RDW CV 15.7 (H) 11.1 - 14.9 % RDW SD 54.3 (H) 35.7 - 48.1 fL NRBC abs 0.00 0.00 - 0.01 K/cumm Comprehensive metabolic panel Collection Time: 12/04/22 6:23 AM Result Value Ref Range Sodium 140 135 - 145 mmol/L Potassium, pl 4.7 3.3 - 4.9 mmol/L Chloride 109 97 - 110 mmol/L CO2 22 22 - 32 mmol/L Anion gap 9 2 - 15 mmol/L BUN 55 (H) 8 - 25 mg/dL Creatinine 2.50 (H) 0.60 - 1.10 mg/dL Glucose 189 70 - 199 mg/dL Calcium 8.7 8.5 - 10.3 mg/dL Bilirubin, total <0.2 0.1 - 1.2 mg/dL Protein, pl 6.7 6.5 - 8.5 g/dL Albumin 2.9 (L) 3.5 - 5.0 g/dL Alk phos 107 40 - 130 Units/L ALT 7 7 - 45 Units/L AST 10 10 - 45 Units/L Differential, auto Collection Time: 12/04/22 6:23 AM Result Value Ref Range Neutrophil abs 5.1 1.7 - 6.5 K/cumm Imm gran abs 0.0 0.0 - 0.1 K/cumm Lymphocyte abs 2.4 0.8 - 3.3 K/cumm Monocyte abs 0.8 0.2 - 0.8 K/cumm Eosinophil abs 0.2 0.0 - 0.5 K/cumm Basophil abs 0.0 0.0 - 0.1 K/cumm Neutrophil pct 59.3 % Imm gran pct 0.2 % Lymphocyte pct 27.7 % Monocyte pct 9.7 % Eosinophil pct 2.6 % Basophil pct 0.5 % eGFR Collection Time: 12/04/22 6:23 AM Result Value Ref Range eGFR 20 mL/min/1.73 m2 POCT glucose Collection Time: 12/04/22 7:24 AM Result Value Ref Range Glucose, POC 183 70 - 199 mg/dL Current Facility-Administered Medications Medication Dose Route Frequency Provider Last Rate Last Admin albuterol HFA (PROVENTIL HFA,VENTOLIN HFA,PROAIR HFA) 90 mcg/actuation inhaler 2 puff 2 puff inhalation Q4H PRN (RT) Tahmina Charles, REPORTS DEVELOPER amLODIPine (NORVASC) tablet 10 mg 10 mg oral Nightly Aylin Kauffman MD 10 mg at 12/03/222112 atorvastatin (LIPITOR) tablet 20 mg 20 mg oral Nightly Tahmina Charles REPORTS DEVELOPER 20 mg at 12/03/222112 benztropine (COGENTIN) tablet 1.5 mg 1.5 mg oral Nightly Tahmina Charles, REPORTS DEVELOPER 1.5 mg at 12/03/222112 bisacodyL (DULCOLAX) suppository 10 mg 10 mg rectal Daily PRN Tahmina Charles NP Carrier Fluids for Secondary Infusion - 0.9% Sodium Chloride 30 mL intravenous PRN Tahmina Chrales REPORTS DEVELOPER 30 mL at 11/30/22 165 carvediloL (COREG) tablet 12.5 mg 12.5 mg oral BID with meals (bkfst, dinner) Tahmina Charles NP 12.5 mg at 12/03/22 1719 cefTRIAXone (ROCEPHIN) 2,000 mg/20 mL in sterile water (premix) 2,000 mg 2,000 mg intravenous Q24H [facility] Shwetha Rahman MD 2,000 mg at 12/03/22 0820 dextrose (GLUTOSE) 40 % gel 15 g 15 g oral Q15 Min PRN Tahmina Charles NP Or dextrose (D10W) 10% bolus 250 mL 250 mL intravenous Q15 Min PRN Tahmina Charles NP doxycycline monohydrate (MONODOX) capsule 100 mg 100 mg oral BID - Shwetha Andrews MD 100 mg at 12/04/22 0534 famotidine (PEPCID) tablet 10 mg 10 mg oral Daily Tahmina Charles NP 10 mg at 12/03/22 0819 glucagon injection 1 mg 1 mg intramuscular Q30 Min PRN Tahmina Charles NP heparin 5,000 unit/mL injection 5,000 Units 5,000 Units subcutaneous Q8H Aylin Rai MD 5,000 Units at 12/04/22 0533 insulin lispro (HumaLOG, ADMELOG) 100 unit/mL injection 0-10 Units 0-10 Units subcutaneous TID withmeals Tahmina Charles NP 4 Units at 12/03/22 1721 insulin lispro (HumaLOG, ADMELOG) 100 unit/mL injection 7 Units 0.083 Units/kg subcutaneous TID with meals Skip Fabian MD 7 Units at 12/03/22 1721 [Held by Provider] losartan (COZAAR) tablet 100 mg 100 mg oral Daily Skip Fabian MD multivitamin with folic acid 400 mcg tablet 1 tablet 1 tablet oral Daily Skip Fabian MD 1tablet at 12/03/22 0819 ondansetron ODT (ZOFRAN-ODT) disintegrating tablet 4 mg 4 mg oral Q6H PRN Tahmina Charles, REPORTS DEVELOPER Or ondansetron (ZOFRAN) injection 4 mg 4 mg intravenous Q6H PRN Tahmina Charles, REPORTS DEVELOPER polyethylene glycol (MIRALAX) packet 17 g 17 g oral Daily PRN Tahmina Charles, REPORTS DEVELOPER pregabalin (LYRICA) capsule 75 mg 75 mg oral Nightly Tahmina Charles, REPORTS DEVELOPER 75 mg at 12/03/222112 risperiDONE (RisperDAL) tablet 2 mg 2 mg oral Nightly Tahmina Charles, REPORTS DEVELOPER 2 mg at 12/03/222112 sodium chloride (OCEAN) 0.65 % nasal spray 2 spray 2 spray each nostril BID PRN Rick North MD sodium chloride 0.9% flush 0.5-20 mL 0.5-20 mL intra-catheter Q8H SOL Tahmina Charles, REPORTS DEVELOPER 10 mL at12/04/22 0534 sodium chloride 0.9% flush 0.5-20 mL 0.5-20 mL intra-catheter PRN Tahmina Charles, REPORTS DEVELOPER A/P: Right foot 1st digit necrosis and osteomyelitis Initially treated with Flagyl and Vancomycin - transitioned to Doxycycline and Rocephin D/T STEFANO Clinically stable. Imaging indicative of osteomyelitis Family/POA declines amputation of the toe at present Will require prison antibiotic therapy with Rocephin and oral doxycyline for 6 weeks May proceed with discharge to SNF today from ID standpoint T2DM Glucose range 175-218 Glycemic protocol STEFANO in addition to underlying CKD Antibiotics therapy previously adjusted to avoid nephrotoxic agents Monitor output Nephrology following My total encounter time on 12/04/2022 was 18 minutes which was spent in the activities documented inthe note. This includes time spent prior to the visit and after the visit in direct care of the patient. This time does not include time spent in any separately reportable services. Voice recognition software [employer] was used dictate and transcribe this document. Steel Sampler variances may occur. Despite proofreading, typographical errors may occur. Vianney Ndiaye NP 12/04/2022 8:32 AM Cosigned by Shwetha Rahman MD at 12/04/2022 12:24 PM CDT Associated attestation - Shwetha Rahman MD - 12/04/2022 12:24 PM CDT I personally performed a substantive portion of this patient encounter in conjunction with REPORTS DEVELOPER Vianney Ndiaye. Chief complaint: Right foot 1st digit distal phalanx osteomyelitis. Type 2 diabetes. Dementia Subjective: No fever or chills. No pain. Discharge planning today. Physical exam: Constitutional: Alert and awake. Head and neck: Neck is supple no lymphadenopathy. Lungs: Good bilateral air entry. CVS: Positive S1 and positive S2. Abdomen: Positive bowel sounds nontender. Extremities: No edema. Right foot 1st digit eschar no change. Skin: No rash. Neurology: No focal neurological deficit Psych: No agitation or anxiety Assessment and plan: 1. Right foot 1st digit osteomyelitis of the distal phalanx from a contiguous infection of soft tissue with necrosis. Currently on Rocephin and doxycycline to complete 42 days of therapy. Follow-up MRI in 3-4 weeks as an outpatient. Okay for discharge planning if okay with others 2. Type 2 diabetes with blood sugars stable ranging between 175-218. Good glycemic control important for wound healing. 3. Acute kidney injury with history of chronic renal insufficiency. Nephrology following. I spent 19 minutes of non-overlapping time managing the patient independent of JARAD Ndiaye today. * Rohan Funes MD - 12/03/2022 3:45 PM CDT Nephrology Daily Progress Subjective Reason for follow up acute on CKD stage IIIB. Interval History: Doing better, complains of neuropathic pains in her legs Objective Vitals: 24hr Min/Max: Temp Min: 36.4 ??C (97.5 ??F) Max: 36.8 ??C (98.3 ??F) Pulse Min: 65 Max: 78 BP Min: 131/67 Max: 149/65 Resp Min: 16 Max: 18 SpO2 Min: 93 % Max: 98 % Most Recent: Vitals: 12/03/22 0700 BP: 131/67 Pulse: 75 Resp: 16 Temp: 36.8 ??C (98.3 ??F) SpO2: 94% Physical Exam: Constitutional: Appears well-developed and well-nourished. [...] Normal mood and affect. Assessment/Plan Principal Problem: Acute renal failure superimposed on chronic kidney disease, unspecified CKD stage, unspecified acute renal failure type (HCC) Active Problems: Type 2 diabetes mellitus with diabetic neuropathy, with long-term current use of insulin ([facility] [facility]/HCC) ([facility]) Gastroesophageal reflux disease Toe necrosis ([facility]) ([facility]) Anemia in stage 4 chronic kidney disease (HCC) STEFANO on CKD stage IIIB in the setting of osteomyelitis of the toe, hemodynamics appears stable, may have a UTI and will check a postvoid residual. Can not rule out AIN secondary to antibiotic toxicityversus infectious GN, would consider changing vancomycin to alternative agent. Infectious Disease consultation pending. Does have lower extremity edema, echocardiogram pending, would continue cautious diuresis. Holding ARB. Renal function stable today and hopefully to start trending back towards baseline. Repeating labs in a.m.. 6.13 Serum creatinine slightly increased, possibly AIN secondary to antibiotics versus infectious GN, antibiotics have been switched and hopefully serum creatinine to plateau and trend back to baseline. Also discontinuing diuretics, does not appear significantly volume overloaded. Echocardiogram resultsnoted with adequate EF and diastolic dysfunction. Will add a CK, may need to send autoimmune serology tomorrow renal function continues to deteriorate. 6.14 Serum creatinine stable, possibly AIN versus vancomycin nephrotoxicity, hopefully creatinine to trend back to baseline. Hemodynamics remained stable. Continue to hold diuretics, does not appear significantly volume overloaded. CK unremarkable. Remains on alternate antibiotics for osteomyelitis. * Jad Mead MD - 12/03/2022 1:28 PM CDT General Medicine Daily Progress Subjective Chief complaint of 72 years old F with PMH of Diabetes, HTN, CKD presented from [place] with increased swelling from past few weeks, she has been on IV abx for right great toe osteomyelitis. Interval History: Patient feeling better, shortness of breath and swelling has improved. 12/03/22 : Patient seen and examined, denies any complaints. Wants to go home, declining amputation. Past Medical History: Diagnosis Date Arthritis Dementia (HCC) Depression Diabetic neuropathy (HCC) Hyperlipidemia Hypertension Renal disorder Schizophrenia (HCC) Type 2 diabetes mellitus (HCC) Objective Vitals: 24hr Min/Max: Temp Min: 36.4 ??C (97.5 ??F) Max: 36.8 ??C (98.3 ??F) Pulse Min: 65 Max: 78 BP Min: 131/67 Max: 149/65 Resp Min: 16 Max: 18 SpO2 Min: 93 % Max: 98 % Most Recent : Vitals: 12/03/22 0700 BP: 131/67 Pulse: 75 Resp: 16 Temp: 36.8 ??C (98.3 ??F) SpO2: 94% I/O last 2 completed shifts: In: 1580 [P.O.:1580] Out: 875 [Urine:875] No intake/output data recorded. Physical Exam: Physical Exam Vitals reviewed. Constitutional: Appearance: Normal appearance. She is obese. HENT: Head: Normocephalic and atraumatic. Right Ear: External ear normal. Left Ear: External ear normal. Nose: Nose normal. Mouth/Throat: Mouth: Mucous membranes are moist. Pharynx: Oropharynx is clear. Eyes: Extraocular Movements: Extraocular movements intact. Conjunctiva/sclera: Conjunctivae normal. Pupils: Pupils are equal, round, and reactive to light. Cardiovascular: Rate and Rhythm: Normal rate and regular rhythm. Pulses: Normal pulses. Heart sounds: Normal heart sounds. Pulmonary: Effort: Pulmonary effort is normal. Breath sounds: Normal breath sounds. Abdominal: General: Abdomen is flat. Bowel sounds are normal. Palpations: Abdomen is soft. Musculoskeletal: General: Normal range of motion. Cervical back: Normal range of motion and neck supple. Skin: General: Skin is warm. Capillary Refill: Capillary refill takes less than 2 seconds. Neurological: General: No focal deficit present. Mental Status: She is alert. Mental status is at baseline. Psychiatric: Mood and Affect: Mood normal. Behavior: Behavior normal. Thought Content: Thought content normal. Judgment: Judgment normal. Lab/Radiology/Diagnostic Review: Laboratory review: I have personally reviewed labs and my findings are anemia and improving creatinine Recent Labs Lab Units 12/03/22 1252 12/02/22 0545 12/01/22 0909 WBC K/cumm 8.2 7.2 8.9 HEMOGLOBIN g/dL 8.4* 7.3* 8.2* HEMATOCRIT % 25.8* 23.7* 25.5* PLATELETS K/cumm 289 252 289 Recent Labs Lab Units 12/03/22 1252 12/03/22 1146 12/03/22 0730 12/02/22 0752 12/02/22 0545 12/01/22 1146 12/01/22 0909 SODIUM mmol/L 138 -- -- -- 142 -- 138 POTASSIUM PLASMA mmol/L 4.6 -- -- -- 4.9 -- 5.0* CHLORIDE mmol/L 105 -- -- -- 110 -- 105 CO2 mmol/L 21* -- -- -- 22 -- 22 BUN SERUM mg/dL 52* -- -- -- 52* -- 46* CREATININE mg/dL 2.80* -- -- -- 2.90* -- 2.70* GLUCOSE mg/dL 155 -- -- -- 108 -- 158 POC GLUCOSE MONITOR mg/dL -- 147 220* < > -- < > -- CALCIUM mg/dL 9.0 -- -- -- 9.0 -- 9.0 < > = values in this interval not displayed. Current Facility-Administered Medications Medication Dose Route Frequency Provider Last Rate Last Admin albuterol HFA (PROVENTIL HFA,VENTOLIN HFA,PROAIR HFA) 90 mcg/actuation inhaler 2 puff 2 puff inhalation Q4H PRN (RT) Tahmina Charles NP amLODIPine (NORVASC) tablet 10 mg 10 mg oral Nightly Aylin Kauffman MD 10 mg at 12/01/222134 atorvastatin (LIPITOR) tablet 20 mg 20 mg oral Nightly Tahmina Charles, REPORTS DEVELOPER 20 mg at 12/01/222133 benztropine (COGENTIN) tablet 1.5 mg 1.5 mg oral Nightly Tahmina Charles REPORTS DEVELOPER 1.5 mg at 12/01/222133 bisacodyL (DULCOLAX) suppository 10 mg 10 mg rectal Daily PRN Tahmina Charles NP Carrier Fluids for Secondary Infusion - 0.9% Sodium Chloride 30 mL intravenous PRN Tahmina Charles NP 30 mL at 11/30/22 1658 carvediloL (COREG) tablet 12.5 mg 12.5 mg oral BID with meals (bkfst, dinner) Tahmina Charles NP 12.5 mg at 12/02/22 1104 cefTRIAXone (ROCEPHIN) 2,000 mg/20 mL in sterile water (premix) 2,000 mg 2,000 mg intravenous Q24H [facility] Shwetha Rahman MD 2,000 mg at 12/02/22 1105 dextrose (GLUTOSE) 40 % gel 15 g 15 g oral Q15 Min PRN Tahmina Charles NP Or dextrose (D10W) 10% bolus 250 mL 250 mL intravenous Q15 Min PRN Tahmina Charles NP doxycycline monohydrate (MONODOX) capsule 100 mg 100 mg oral BID - [facility] Shwetha Rahman MD 100 mg at 12/02/22 0549 famotidine (PEPCID) tablet 10 mg 10 mg oral Daily Tahmina Charles REPORTS DEVELOPER 10 mg at 12/02/22 1105 furosemide (LASIX) 10 mg/mL injection 40 mg 40 mg intravenous Daily Skip Fabian MD 40 mg at 12/02/22 1104 glucagon injection 1 mg 1 mg intramuscular Q30 Min PRN Tahmina Charles NP heparin 5,000 unit/mL injection 5,000 Units 5,000 Units subcutaneous Q8H [facility] Aylin Kauffman MD 5,000 Units at 12/02/22 0549 insulin lispro (HumaLOG, ADMELOG) 100 unit/mL injection 0-10 Units 0-10 Units subcutaneous TID withmeals Tahmina Charles NP 4 Units at 12/01/22 1717 insulin lispro (HumaLOG, ADMELOG) 100 unit/mL injection 0-5 Units 0-5 Units subcutaneous Nightly Tahmina Charles REPORTS DEVELOPER 2 Units at 12/01/222134 [Held by Provider] insulin lispro (HumaLOG, ADMELOG) 100 unit/mL injection 7 Units 0.083 Units/kg subcutaneous TID with meals Skip Fabian MD [Held by Provider] losartan (COZAAR) tablet 100 mg 100 mg oral Daily Skip Fabian MD multivitamin with folic acid 400 mcg tablet 1 tablet 1 tablet oral Daily Skip Fabian MD 1tablet at 12/02/221104 ondansetron ODT (ZOFRAN-ODT) disintegrating tablet 4 mg 4 mg oral Q6H PRN Tahmina Charles NP Or ondansetron (ZOFRAN) injection 4 mg 4 mg intravenous Q6H PRN Tahmina Charles, JARAD polyethylene glycol (MIRALAX) packet 17 g 17 g oral Daily PRN Tahmina Charles, JARAD pregabalin (LYRICA) capsule 75 mg 75 mg oral Nightly Tahmina Charles, REPORTS DEVELOPER 75 mg at 12/01/222133 risperiDONE (RisperDAL) tablet 2 mg 2 mg oral Nightly Tahmina Charles, REPORTS DEVELOPER 2 mg at 12/01/222133 sodium chloride (OCEAN) 0.65 % nasal spray 2 spray 2 spray each nostril BID PRN Rick North MD sodium chloride 0.9% flush 0.5-20 mL 0.5-20 mL intra-catheter Q8H SOL Tahmina Charles, REPORTS DEVELOPER 10 mL at12/02/22 0550 sodium chloride 0.9% flush 0.5-20 mL 0.5-20 mL intra-catheter PRN Tahmina Charles NP Assessment/Plan Principal Problem: Acute renal failure superimposed on chronic kidney disease, unspecified CKD stage, unspecified acute renal failure type ([facility]) Active Problems: Type 2 diabetes mellitus with diabetic neuropathy, with long-term current use of insulin (CMS/HCC) (HCC) Gastroesophageal reflux disease Toe necrosis (CMS/HCC) ([facility]) Anemia in stage 4 chronic kidney disease (HCC) Acute renal failure superimposed on CKD stage 4 Right toe Chronic Osteomyelitis POA Acute on Chronic Diastolic CHF exacerbation POA Type 2 DM Hypertension Anemia of chronic disease Plan - hold ARBs, nephrology following - creatinine stable, as per nephrology - patient was seen in [facility] In October and patient and family had refused amputation of the toe. - currently antibiotics being adjusted as per ID - improving shortness of breath, continue IV lasix as per nephrology - recent echo suggestive of diastolic dysfunction - accucheks better controlled, continue current dosing of insulin - BP well controlled, continue to monitor BP - low Hb with low iron, iron supplementation DVT prophylaxis - heparin subcut My total encounter time on 12/03/2022 was 36 minutes which was spent in the activities documented inthe note. This includes time spent prior to the visit and after the visit in direct care of the patient. This time does not include time spent in any separately reportable services. * Vianney Ndiaye NP - 12/03/2022 11:16 AM CDT Images from the original note were not included. Infectious Disease Daily Progress SUBJECTIVE Chief complaint of Right diabetic foot infection of the 1st digit osteomyelitis. Interval History: No new events overnight per staff. Discharge planning in progress. Will require prison antibiotic therapy. Plan for home with family and [facility]. OBJECTIVE Vitals: 24hr Min/Max: Temp Min: 36.4 ??C (97.5 ??F) Max: 36.8 ??C (98.3 ??F) Pulse Min: 65 Max: 78 BP Min: 131/67 Max: 149/65 Resp Min: 16 Max: 18 SpO2 Min: 93 % Max: 98 % Most Recent : Vitals: 12/03/22 0700 BP: 131/67 Pulse: 75 Resp: 16 Temp: 36.8 ??C (98.3 ??F) SpO2: 94% I/O last 2 completed shifts: In: 1580 [P.O.:1580] Out: 875 [Urine:875] No intake/output data recorded. Physical Exam: Eyes: EOMI, SB, sclare non icteric Pharynx: No gross oral lesion, mucosa moist Lungs CTA, no wheezes Heart: GTDH5C4, no significant murmur Abd: +BS, Non Tender, Non distended Lower Ext: No gross edema, pedal artery pulses are palpable bilaterally. Right foot 1st digit with some distal necrosis noted - surrounding edema - dry with no erythema noted. Neuro: No new deficits appreciated Musculoskeletal: no gross joint erythema, edema, tenderness Skin: No new change. No rash 11/30/2022 Right foot Right foot Lab/Current Medication Review: Recent Results (from the past 24 hour(s)) POCT glucose Collection Time: 12/02/22 11:33 AM Result Value Ref Range Glucose, POC 277 (H) 70 - 199 mg/dL POCT glucose Collection Time: 12/02/22 4:14 PM Result Value Ref Range Glucose, POC 272 (H) 70 - 199 mg/dL POCT glucose Collection Time: 12/02/22 8:20 PM Result Value Ref Range Glucose, POC 141 70 - 199 mg/dL POCT glucose Collection Time: 12/03/22 7:30 AM Result Value Ref Range Glucose, POC 220 (H) 70 - 199 mg/dL Glucose comment 1 Use This Result Current Facility-Administered Medications Medication Dose Route Frequency Provider Last Rate Last Admin albuterol HFA (PROVENTIL HFA,VENTOLIN HFA,PROAIR HFA) 90 mcg/actuation inhaler 2 puff 2 puff inhalation Q4H PRN (RT) Tahmina Charles, REPORTS DEVELOPER amLODIPine (NORVASC) tablet 10 mg 10 mg oral Nightly Aylin Kauffman MD 10 mg at 12/02/22 2140 atorvastatin (LIPITOR) tablet 20 mg 20 mg oral Nightly Ac, Tahmina L., REPORTS DEVELOPER 20 mg at 12/02/222139 benztropine (COGENTIN) tablet 1.5 mg 1.5 mg oral Nightly Tahmina Charles, REPORTS DEVELOPER 1.5 mg at 12/02/222137 bisacodyL (DULCOLAX) suppository 10 mg 10 mg rectal Daily PRN Tahmina Charles NP Carrier Fluids for Secondary Infusion - 0.9% Sodium Chloride 30 mL intravenous PRN Tahmina Charles REPORTS DEVELOPER 30 mL at 11/30/22 165 carvediloL (COREG) tablet 12.5 mg 12.5 mg oral BID with meals (bkfst, dinner) Tahmina Charles NP 12.5 mg at 12/03/22 0819 cefTRIAXone (ROCEPHIN) 2,000 mg/20 mL in sterile water (premix) 2,000 mg 2,000 mg intravenous Q24H Shwetha Hassan MD 2,000 mg at 12/03/22 0820 dextrose (GLUTOSE) 40 % gel 15 g 15 g oral Q15 Min PRN Tahmina Charles NP Or dextrose (D10W) 10% bolus 250 mL 250 mL intravenous Q15 Min PRN Tahmina Charles NP doxycycline monohydrate (MONODOX) capsule 100 mg 100 mg oral BID - Shwetha Andrews MD 100 mg at 12/03/22 0609 famotidine (PEPCID) tablet 10 mg 10 mg oral Daily Tahmina Charles NP 10 mg at 12/03/22 0819 glucagon injection 1 mg 1 mg intramuscular Q30 Min PRN Tahmina Charles NP heparin 5,000 unit/mL injection 5,000 Units 5,000 Units subcutaneous Q8H Aylin Rai MD 5,000 Units at 12/03/22 0609 insulin lispro (HumaLOG, ADMELOG) 100 unit/mL injection 0-10 Units 0-10 Units subcutaneous TID withmeals Tahmina Charles NP 4 Units at 12/03/22 0819 insulin lispro (HumaLOG, ADMELOG) 100 unit/mL injection 7 Units 0.083 Units/kg subcutaneous TID with meals Skip Fabain MD 7 Units at 12/03/22 0819 [Held by Provider] losartan (COZAAR) tablet 100 mg 100 mg oral Daily Skip Fabian MD multivitamin with folic acid 400 mcg tablet 1 tablet 1 tablet oral Daily Skip Fabian MD 1tablet at 12/03/22 0819 ondansetron ODT (ZOFRAN-ODT) disintegrating tablet 4 mg 4 mg oral Q6H PRN Tahmina Charles, REPORTS DEVELOPER Or ondansetron (ZOFRAN) injection 4 mg 4 mg intravenous Q6H PRN Tahmina Charles, REPORTS DEVELOPER polyethylene glycol (MIRALAX) packet 17 g 17 g oral Daily PRN Tahmina Charles, REPORTS DEVELOPER pregabalin (LYRICA) capsule 75 mg 75 mg oral Nightly Tahmina Charles, REPORTS DEVELOPER 75 mg at 12/02/222139 risperiDONE (RisperDAL) tablet 2 mg 2 mg oral Nightly Tahmina Charles, REPORTS DEVELOPER 2 mg at 12/02/222138 sodium chloride (OCEAN) 0.65 % nasal spray 2 spray 2 spray each nostril BID PRN Rick North MD sodium chloride 0.9% flush 0.5-20 mL 0.5-20 mL intra-catheter Q8H SOL Tahmina Charles, REPORTS DEVELOPER 10 mL at12/03/22 0610 sodium chloride 0.9% flush 0.5-20 mL 0.5-20 mL intra-catheter PRN Tahmina Charles, REPORTS DEVELOPER A/P: Right foot 1st digit necrosis Initially treated with Flagyl and Vancomycin - transitioned to Doxycycline and Rocephin D/T STEFANO Clinically stable. Imaging indicative of osteomyelitis Family/POA declines amputation of the toe at present Will require prison antibiotic therapy. Plan for Rocephin and oral doxycyline for 6 weeks May proceed with discharge from ID standpoint T2DM Glucose range 141-277 Glycemic protocol STEFANO in addition to underlying CKD Antibiotics therapy previously adjusted to avoid nephrotoxic agents Monitor output Nephrology following My total encounter time on 12/03/2022 was 17 minutes which was spent in the activities documented inthe note. This includes time spent prior to the visit and after the visit in direct care of the patient. This time does not include time spent in any separately reportable services. Voice recognition software [employer] Direct was used dictate and transcribe this document. Steel Sampler variances may occur. Despite proofreading, typographical errors may occur. Vianney Ndiaye NP 12/03/2022 11:16 AM Cosigned by Shwetha Rahman MD at 12/03/2022 3:50 PM CDT Associated attestation - Shwetha Rahman MD - 12/03/2022 3:50 PM CDT I personally performed a substantive portion of this patient encounter in conjunction with JARAD Ndiaye. Chief complaint: Right diabetic foot infection of the 1st digit with osteomyelitis. Subjective: No pain or fever. Physical exam: Constitutional: Alert and awake. Head and neck: Neck is supple no lymphadenopathy. Lungs: Good bilateral air entry. CVS: Positive S1 and positive S2. Abdomen: Positive bowel sounds nontender. Extremities: No edema. Right foot 1st digit distal eschar. Skin: No rash. Neurology: No focal neurological deficit Psych: No agitation or anxiety Assessment and plan: 1. Right foot 1st digit distal phalanx osteomyelitis. Patient as well as family/POA refused surgical intervention. Will continue Rocephin 2 g daily with doxycycline 100 mg p.o. twice a day for 6 weeks. Okay for discharge planning if okay with 2. Others. Type 2 diabetes with blood sugars ranging between 141-277 3. Acute kidney injury being followed by Nephrology. I spent 18 minutes of non-overlapping time managing the patient independent of JARAD Ndiaye today. * Sheree Bello, ELECTROLYSIS OPERATOR - 12/03/2022 9:45 AM CDT Physical Therapy 12/03/22 0945 PT Last Visit Session Type Treatment PT Received On 12/03/22 Safe Environment Arm band checked;Patient found in supine;Gait belt utilized for all out of bed mobility Subjective Agreeable to Therapy Precautions Precautions Bed/Chair Alarm;Fall risk Pain Assessment Pain Assessment No/denies pain Bed Mobility 1 Bed Mobility From 1 Supine Bed Mobility Type 1 To Bed Mobility to 1 Edge of bed Level of Assistance 1 Minimum Assist Bed Mobility Comments 1 used bed rail; vc's for sequencing Transfer 1 Transfer From 1 Sit Transfer Type 1 To and from Transfer to 1 Stand Technique 1 Sit to stand;Stand to sit Transfer Device 1 No device;Wheeled walker Transfer Level of Assistance 1 Minimum Assist;Moderate Assist Trials/Comments 1 increased assist needed from lower surface with vc's for hand placement. Ambulation 1 Distance (ft) 1 20 x 2 Surface 1 Level tile Device 1 Wheeled walker Assistance 1 Contact Guard Assist Gait: Requires assist with 1 Maintaining balance Gait: Requires verbal cues to 1 Use assistive device safely;Improve upright posture;Increase step length Safe Environment End of Therapy Session Safe Environment End of Therapy Session Patient left in chair;RN notified;Call light within reach;Overbed table within reach;Chair alarm in place and activated Recommendation/Plan PT Recommendation/Plan (S) Long-Term Facility Recommend SNF due to Risk of injury at home;Unable to safely care for self in the home;Skilled therapy needed to address care for self in the home;Skilled therapy needed to address functional deficits;Skilled therapy needed for patient to return to prior level of independence Multi-Disciplinary Problems (from Physical Therapy) Active Problems Problem: PT [facility] Start Date: 12/01/22 Goal Start Date Expected End Date End Date PT [place] - [facility] 10 12/01/22 12/15/22 -- Goal Details: Will amb 20 ft with ww and min assist of 2 and cues met Goal Start Date Expected End Date End Date PT [facility] - [facility] 1 12/01/22 12/08/22 -- Goal Details: Will transfer bed<>chair with ww and min assist of 1 and cues met Goal Start Date Expected End Date End Date PT [facility] 2 12/01/22 12/08/22 -- Goal Details: Will perform AROM ex x B LE with min cues Not met Educated the patient to the role of physical therapy, plan of care, goals of therapy, rationale forprogressing mobility. Patient was left with all needs met and equipment intact. Mobility and ADL status posted at bedsideand within medical record. * Rohan Funes MD - 12/02/2022 3:06 PM CDT Nephrology Daily Progress Subjective Reason for follow up acute on CKD stage IIIB. Interval History: Reports feeling better, no complaints Objective Vitals: 24hr Min/Max: Temp Min: 36.7 ??C (98.1 ??F) Max: 37.1 ??C (98.7 ??F) Pulse Min: 60 Max: 106 BP Min: 108/61 Max: 149/74 Resp Min: 16 Max: 20 SpO2 Min: 92 % Max: 97 % Most Recent: Vitals: 12/02/22 0805 BP: 143/65 Pulse: 68 Resp: 16 Temp: 36.8 ??C (98.3 ??F) SpO2: 92% Physical Exam: Constitutional: Appears well-developed and well-nourished. [...] Normal mood and affect. Assessment/Plan Principal Problem: Acute renal failure superimposed on chronic kidney disease, unspecified CKD stage, unspecified acute renal failure type (HCC) Active Problems: Type 2 diabetes mellitus with diabetic neuropathy, with long-term current use of insulin ([facility]) ([facility]) Gastroesophageal reflux disease Toe necrosis ([facility]/HCC) ([facility]) Anemia in stage 4 chronic kidney disease (HCC) STEFANO on CKD stage IIIB in the setting of osteomyelitis of the toe, hemodynamics appears stable, may have a UTI and will check a postvoid residual. Can not rule out AIN secondary to antibiotic toxicityversus infectious GN, would consider changing vancomycin to alternative agent. Infectious Disease consultation pending. Does have lower extremity edema, echocardiogram pending, would continue cautious diuresis. Holding ARB. Renal function stable today and hopefully to start trending back towards baseline. Repeating labs in a.m.. 6.13 Serum creatinine slightly increased, possibly AIN secondary to antibiotics versus infectious GN, antibiotics have been switched and hopefully serum creatinine to plateau and trend back to baseline. Also discontinuing diuretics, does not appear significantly volume overloaded. Echocardiogram resultsnoted with adequate EF and diastolic dysfunction. Will add a CK, may need to send autoimmune serology tomorrow renal function continues to deteriorate. * Jad Mead MD - 12/02/2022 1:21 PM CDT General Medicine Daily Progress Subjective Chief complaint of 72 years old F with PMH of Diabetes, HTN, CKD presented from [place] with increased swelling from past few weeks, she has been on IV abx for right great toe osteomyelitis. Interval History: Patient feeling better, shortness of breath and swelling has improved. Past Medical History: Diagnosis Date Arthritis Dementia (HCC) Depression Diabetic neuropathy (HCC) Hyperlipidemia Hypertension Renal disorder Schizophrenia (HCC) Type 2 diabetes mellitus (HCC) Objective Vitals: 24hr Min/Max: Temp Min: 36.7 ??C (98.1 ??F) Max: 37.1 ??C (98.7 ??F) Pulse Min: 60 Max: 106 BP Min: 108/61 Max: 149/74 Resp Min: 16 Max: 20 SpO2 Min: 92 % Max: 97 % Most Recent : Vitals: 12/02/22 0805 BP: 143/65 Pulse: 68 Resp: 16 Temp: 36.8 ??C (98.3 ??F) SpO2: 92% No intake/output data recorded. I/O this shift: In: 480 [P.O.:480] Out: - Physical Exam: Physical Exam Vitals reviewed. Constitutional: Appearance: Normal appearance. She is obese. HENT: Head: Normocephalic and atraumatic. Right Ear: External ear normal. Left Ear: External ear normal. Nose: Nose normal. Mouth/Throat: Mouth: Mucous membranes are moist. Pharynx: Oropharynx is clear. Eyes: Extraocular Movements: Extraocular movements intact. Conjunctiva/sclera: Conjunctivae normal. Pupils: Pupils are equal, round, and reactive to light. Cardiovascular: Rate and Rhythm: Normal rate and regular rhythm. Pulses: Normal pulses. Heart sounds: Normal heart sounds. Pulmonary: Effort: Pulmonary effort is normal. Breath sounds: Normal breath sounds. Abdominal: General: Abdomen is flat. Bowel sounds are normal. Palpations: Abdomen is soft. Musculoskeletal: General: Normal range of motion. Cervical back: Normal range of motion and neck supple. Skin: General: Skin is warm. Capillary Refill: Capillary refill takes less than 2 seconds. Neurological: General: No focal deficit present. Mental Status: She is alert. Mental status is at baseline. Psychiatric: Mood and Affect: Mood normal. Behavior: Behavior normal. Thought Content: Thought content normal. Judgment: Judgment normal. Lab/Radiology/Diagnostic Review: Laboratory review: I have personally reviewed labs and my findings are anemia and elevated creatinine Recent Labs Lab Units 12/02/22 0545 12/01/22 0909 11/30/22 1613 11/30/22 1143 WBC K/cumm 7.2 8.9 -- 9.9 HEMOGLOBIN g/dL 7.3* 8.2* 8.6* 7.9* HEMATOCRIT % 23.7* 25.5* 27.5* 25.0* PLATELETS K/cumm 252 289 -- 272 Recent Labs Lab Units 12/02/22 1133 12/02/22 0752 12/02/22 0545 12/01/22 1146 12/01/22 0909 11/30/22 1504 11/30/22 1143 SODIUM mmol/L -- -- 142 -- 138 -- 142 POTASSIUM PLASMA mmol/L -- -- 4.9 -- 5.0* -- 4.9 CHLORIDE mmol/L -- -- 110 -- 105 -- 110 CO2 mmol/L -- -- 22 -- 22 -- 23 BUN SERUM mg/dL -- -- 52* -- 46* -- 47* CREATININE mg/dL -- -- 2.90* -- 2.70* -- 2.70* GLUCOSE mg/dL -- -- 108 -- 158 -- 124 POC GLUCOSE MONITOR mg/dL 277* 138 -- < > -- < > -- CALCIUM mg/dL -- -- 9.0 -- 9.0 -- 8.6 < > = values in this interval not displayed. Current Facility-Administered Medications Medication Dose Route Frequency Provider Last Rate Last Admin albuterol HFA (PROVENTIL HFA,VENTOLIN HFA,PROAIR HFA) 90 mcg/actuation inhaler 2 puff 2 puff inhalation Q4H PRN (RT) Tahmina Charles NP amLODIPine (NORVASC) tablet 10 mg 10 mg oral Nightly Aylin Kauffman MD 10 mg at 12/01/222134 atorvastatin (LIPITOR) tablet 20 mg 20 mg oral Nightly Tahmina Charles, REPORTS DEVELOPER 20 mg at 12/01/222133 benztropine (COGENTIN) tablet 1.5 mg 1.5 mg oral Nightly Tahmina Charles, REPORTS DEVELOPER 1.5 mg at 12/01/222133 bisacodyL (DULCOLAX) suppository 10 mg 10 mg rectal Daily PRN Tahmina Charles NP Carrier Fluids for Secondary Infusion - 0.9% Sodium Chloride 30 mL intravenous PRN Tahmina Charles NP 30 mL at 11/30/22 1658 carvediloL (COREG) tablet 12.5 mg 12.5 mg oral BID with meals (bkfst, dinner) Tahmina Charles NP 12.5 mg at 12/02/22 1104 cefTRIAXone (ROCEPHIN) 2,000 mg/20 mL in sterile water (premix) 2,000 mg 2,000 mg intravenous Q24H [facility] Shwetha Rahman MD 2,000 mg at 12/02/22 1105 dextrose (GLUTOSE) 40 % gel 15 g 15 g oral Q15 Min PRN Tahmina Charles NP Or dextrose (D10W) 10% bolus 250 mL 250 mL intravenous Q15 Min PRN Tahmina Charles, REPORTS DEVELOPER doxycycline monohydrate (MONODOX) capsule 100 mg 100 mg oral BID - [facility] Shwetha Rahman MD 100 mg at 12/02/22 0549 famotidine (PEPCID) tablet 10 mg 10 mg oral Daily Tahmina Charles, REPORTS DEVELOPER 10 mg at 12/02/22 1105 furosemide (LASIX) 10 mg/mL injection 40 mg 40 mg intravenous Daily Skip Fabian MD 40 mg at 12/02/22 1104 glucagon injection 1 mg 1 mg intramuscular Q30 Min PRN Tahmina Charles, REPORTS DEVELOPER heparin 5,000 unit/mL injection 5,000 Units 5,000 Units subcutaneous Q8H [facility] Aylin Kauffman MD 5,000 Units at 12/02/22 0549 insulin lispro (HumaLOG, ADMELOG) 100 unit/mL injection 0-10 Units 0-10 Units subcutaneous TID withmeals Tahmina Charles, REPORTS DEVELOPER 4 Units at 12/01/22 1717 insulin lispro (HumaLOG, ADMELOG) 100 unit/mL injection 0-5 Units 0-5 Units subcutaneous Nightly Tahmina Charles, REPORTS DEVELOPER 2 Units at 12/01/222134 [Held by Provider] insulin lispro (HumaLOG, ADMELOG) 100 unit/mL injection 7 Units 0.083 Units/kg subcutaneous TID with meals Skip Fabian MD [Held by Provider] losartan (COZAAR) tablet 100 mg 100 mg oral Daily Skip Fabian MD multivitamin with folic acid 400 mcg tablet 1 tablet 1 tablet oral Daily Skip Fabian MD 1tablet at 12/02/22 110 ondansetron ODT (ZOFRAN-ODT) disintegrating tablet 4 mg 4 mg oral Q6H PRN Tahmina Charles, REPORTS DEVELOPER Or ondansetron (ZOFRAN) injection 4 mg 4 mg intravenous Q6H PRN Tahmina Charles, REPORTS DEVELOPER polyethylene glycol (MIRALAX) packet 17 g 17 g oral Daily PRN Tahmina Charles, REPORTS DEVELOPER pregabalin (LYRICA) capsule 75 mg 75 mg oral Nightly Tahmina Charles, REPORTS DEVELOPER 75 mg at 12/01/222133 risperiDONE (RisperDAL) tablet 2 mg 2 mg oral Nightly Tahmina Charles, REPORTS DEVELOPER 2 mg at 12/01/222133 sodium chloride (OCEAN) 0.65 % nasal spray 2 spray 2 spray each nostril BID PRN Rick North MD sodium chloride 0.9% flush 0.5-20 mL 0.5-20 mL intra-catheter Q8H [facility] Tahmina Charles, JARAD 10 mL at12/02/22 0550 sodium chloride 0.9% flush 0.5-20 mL 0.5-20 mL intra-catheter PRN Tahmina Charles NP Assessment/Plan Principal Problem: Acute renal failure superimposed on chronic kidney disease, unspecified CKD stage, unspecified acute renal failure type (HCC) Active Problems: Type 2 diabetes mellitus with diabetic neuropathy, with long-term current use of insulin ([facility]) ([facility]) Gastroesophageal reflux disease Toe necrosis (CMS/HCC) ([facility]) Anemia in stage 4 chronic kidney disease (HCC) Acute renal failure superimposed on CKD stage 4 Right toe Chronic Osteomyelitis POA Acute on Chronic Diastolic CHF exacerbation POA Type 2 DM Hypertension Anemia of chronic disease Plan - hold ARBs, nephrology following - creatinine worsening today, continue IV lasix - patient was seen in [facility] In October and patient and family had refused amputation of the toe. - currently antibiotics being adjusted as per ID - improving shortness of breath, continue IV lasix as per nephrology - recent echo suggestive of diastolic dysfunction - worsening accucheks, will increase the insulin dosing - continue to monitor accucheks - BP well controlled, continue to monitor BP - low Hb with low iron, will check stool guaiac to rule out GI bleed DVT prophylaxis - heparin subcut My total encounter time on 12/02/2022 was 36 minutes which was spent in the activities documented inthe note. This includes time spent prior to the visit and after the visit in direct care of the patient. This time does not include time spent in any separately reportable services. * Vianney Ndiaye NP - 12/02/2022 1:07 PM CDT Images from the original note were not included. Infectious Disease Daily Progress SUBJECTIVE Chief complaint of right diabetic foot infection 1st digit Interval History: Pt denies any pain, nausea or loose stools. States I feel just fine . Denies any other C/O's at present. Discharge planning in progress. Reportedly pt's POA has declined amputation of the pt's rightfirst toe. OBJECTIVE Vitals: 24hr Min/Max: Temp Min: 36.7 ??C (98.1 ??F) Max: 37.1 ??C (98.7 ??F) Pulse Min: 60 Max: 106 BP Min: 108/61 Max: 149/74 Resp Min: 16 Max: 20 SpO2 Min: 92 % Max: 97 % Most Recent : Vitals: 12/02/22 0805 BP: 143/65 Pulse: 68 Resp: 16 Temp: 36.8 ??C (98.3 ??F) SpO2: 92% No intake/output data recorded. I/O this shift: In: 480 [P.O.:480] Out: - Physical Exam: Eyes: EOMI, SB, sclare non icteric Pharynx: No gross oral lesion, mucosa moist Lungs CTA, no wheezes Heart: [id number], no significant murmur Abd: +BS, Non Tender, Non distended Lower Ext: No gross edema, pedal artery pulses are palpable bilaterally. Right foot 1st digit with some distal necrosis noted - surrounding edema - dry with no erythema noted. Neuro: No new deficits appreciated Musculoskeletal: no gross joint erythema, edema, tenderness Skin: No new change. No rash 11/30/2022 Right foot Right foot Lab/Current Medication Review: Recent Results (from the past 24 hour(s)) POCT glucose Collection Time: 12/01/22 4:21 PM Result Value Ref Range Glucose, POC 218 (H) 70 - 199 mg/dL POCT glucose Collection Time: 12/01/22 9:12 PM Result Value Ref Range Glucose, POC 213 (H) 70 - 199 mg/dL Glucose comment 1 Use This Result Glucose comment 2 RN/MD Notified Magnesium Collection Time: 12/02/22 5:45 AM Result Value Ref Range Magnesium 2.3 1.4 - 2.5 mg/dL CBC with auto differential Collection Time: 12/02/22 5:45 AM Result Value Ref Range WBC 7.2 3.8 - 9.9 K/cumm Hgb 7.3 (L) 11.9 - 15.5 g/dL Hct 23.7 (L) 35.6 - 45.5 % Plt 252 150 - 400 K/cumm MPV 10.8 9.1 - 12.3 fL RBC 2.45 (L) 3.90 - 5.20 M/cumm MCV 96.7 (H) 81.3 - 96.4 fL MCH 29.8 27.1 - 33.3 pg MCHC 30.8 (L) 32.3 - 35.7 g/dL RDW CV 15.9 (H) 11.1 - 14.9 % RDW SD 56.6 (H) 35.7 - 48.1 fL NRBC abs 0.00 0.00 - 0.01 K/cumm Comprehensive metabolic panel Collection Time: 12/02/22 5:45 AM Result Value Ref Range Sodium 142 135 - 145 mmol/L Potassium, pl 4.9 3.3 - 4.9 mmol/L Chloride 110 97 - 110 mmol/L CO2 22 22 - 32 mmol/L Anion gap 10 2 - 15 mmol/L BUN 52 (H) 8 - 25 mg/dL Creatinine 2.90 (H) 0.60 - 1.10 mg/dL Glucose 108 70 - 199 mg/dL Calcium 9.0 8.5 - 10.3 mg/dL Bilirubin, total <0.2 0.1 - 1.2 mg/dL Protein, pl 6.7 6.5 - 8.5 g/dL Albumin 3.0 (L) 3.5 - 5.0 g/dL Alk phos 87 40 - 130 Units/L ALT 8 7 - 45 Units/L AST 12 10 - 45 Units/L Differential, auto Collection Time: 12/02/22 5:45 AM Result Value Ref Range Neutrophil abs 3.7 1.7 - 6.5 K/cumm Imm gran abs 0.0 0.0 - 0.1 K/cumm Lymphocyte abs 2.5 0.8 - 3.3 K/cumm Monocyte abs 0.7 0.2 - 0.8 K/cumm Eosinophil abs 0.2 0.0 - 0.5 K/cumm Basophil abs 0.0 0.0 - 0.1 K/cumm Neutrophil pct 51.4 % Imm gran pct 0.3 % Lymphocyte pct 34.7 % Monocyte pct 10.2 % Eosinophil pct 3.0 % Basophil pct 0.4 % eGFR Collection Time: 12/02/22 5:45 AM Result Value Ref Range eGFR 17 mL/min/1.73 m2 POCT glucose Collection Time: 12/02/22 7:52 AM Result Value Ref Range Glucose, POC 138 70 - 199 mg/dL POCT glucose Collection Time: 12/02/22 11:33 AM Result Value Ref Range Glucose, POC 277 (H) 70 - 199 mg/dL Current Facility-Administered Medications Medication Dose Route Frequency Provider Last Rate Last Admin albuterol HFA (PROVENTIL HFA,VENTOLIN HFA,PROAIR HFA) 90 mcg/actuation inhaler 2 puff 2 puff inhalation Q4H PRN (RT) Tahmina Charles NP amLODIPine (NORVASC) tablet 10 mg 10 mg oral Nightly Aylin Kauffman MD 10 mg at 12/01/222134 atorvastatin (LIPITOR) tablet 20 mg 20 mg oral Nightly Tahmina Charles REPORTS DEVELOPER 20 mg at 12/01/222133 benztropine (COGENTIN) tablet 1.5 mg 1.5 mg oral Nightly Tahmina Charles REPORTS DEVELOPER 1.5 mg at 12/01/222133 bisacodyL (DULCOLAX) suppository 10 mg 10 mg rectal Daily PRN Tahmina Charles NP Carrier Fluids for Secondary Infusion - 0.9% Sodium Chloride 30 mL intravenous PRN Tahmina Charles NP 30 mL at 11/30/22 1658 carvediloL (COREG) tablet 12.5 mg 12.5 mg oral BID with meals (bkfst, dinner) Tahmina Charles NP 12.5 mg at 12/02/22 1104 cefTRIAXone (ROCEPHIN) 2,000 mg/20 mL in sterile water (premix) 2,000 mg 2,000 mg intravenous Q24H [facility] Shwetha Rahman MD 2,000 mg at 12/02/22 1105 dextrose (GLUTOSE) 40 % gel 15 g 15 g oral Q15 Min PRN Tahmina Charles NP Or dextrose (D10W) 10% bolus 250 mL 250 mL intravenous Q15 Min PRN Tahmina Charles NP doxycycline monohydrate (MONODOX) capsule 100 mg 100 mg oral BID - [facility] Shwetha Rahman MD 100 mg at 12/02/22 0549 famotidine (PEPCID) tablet 10 mg 10 mg oral Daily Tahmina Charles NP 10 mg at 12/02/22 1105 furosemide (LASIX) 10 mg/mL injection 40 mg 40 mg intravenous Daily Skip Fabian MD 40 mg at 12/02/22 1104 glucagon injection 1 mg 1 mg intramuscular Q30 Min PRN Tahmina Charles, JARAD heparin 5,000 unit/mL injection 5,000 Units 5,000 Units subcutaneous Q8H [facility] Aylin Kauffman MD 5,000 Units at 12/02/22 0549 insulin lispro (HumaLOG, ADMELOG) 100 unit/mL injection 0-10 Units 0-10 Units subcutaneous TID withmeals Tahmina Charles REPORTS DEVELOPER 4 Units at 12/01/22 1717 insulin lispro (HumaLOG, ADMELOG) 100 unit/mL injection 0-5 Units 0-5 Units subcutaneous Nightly Tahmina Charles, REPORTS DEVELOPER 2 Units at 12/01/222134 [Held by Provider] insulin lispro (HumaLOG, ADMELOG) 100 unit/mL injection 7 Units 0.083 Units/kg subcutaneous TID with meals Skip Fabian MD [Held by Provider] losartan (COZAAR) tablet 100 mg 100 mg oral Daily Skip Fabian MD multivitamin with folic acid 400 mcg tablet 1 tablet 1 tablet oral Daily Skip Fabian MD 1tablet at 12/02/221104 ondansetron ODT (ZOFRAN-ODT) disintegrating tablet 4 mg 4 mg oral Q6H PRN Tahmina Charles NP Or ondansetron (ZOFRAN) injection 4 mg 4 mg intravenous Q6H PRN Tahmina Charles, REPORTS DEVELOPER polyethylene glycol (MIRALAX) packet 17 g 17 g oral Daily PRN Tahmina Charles, REPORTS DEVELOPER pregabalin (LYRICA) capsule 75 mg 75 mg oral Nightly Tahmina Charles, REPORTS DEVELOPER 75 mg at 12/01/222133 risperiDONE (RisperDAL) tablet 2 mg 2 mg oral Nightly Tahmina Charles, REPORTS DEVELOPER 2 mg at 12/01/222133 sodium chloride (OCEAN) 0.65 % nasal spray 2 spray 2 spray each nostril BID PRN Rick North MD sodium chloride 0.9% flush 0.5-20 mL 0.5-20 mL intra-catheter Q8H [facility] Tahmina Charles, REPORTS DEVELOPER 10 mL at12/02/22 0550 sodium chloride 0.9% flush 0.5-20 mL 0.5-20 mL intra-catheter PRN Tahmina Charles NP A/P: Right foot 1st digit necrosis Initially treated with Flagyl and Vancomycin - transitioned to Doxycycline and Rocephin D/T STEFANO Clinically stable. Imaging indicative of osteomyelitis Family/POA declines amputation of the toe at present Will require terminal gauger antibiotic therapy Discharge planning in progress T2DM Glucose range 108-227 Glycemic protocol STEFANO in addition to underlying CKD Cr now at 2.90 Antibiotics therapy previously adjusted to avoid nephrotoxic agents Monitor output Nephrology following My total encounter time on 12/02/2022 was 18 minutes which was spent in the activities documented inthe note. This includes time spent prior to the visit and after the visit in direct care of the patient. This time does not include time spent in any separately reportable services. Voice recognition software [employer] Direct was used dictate and transcribe this document. Steel Sampler variances may occur. Despite proofreading, typographical errors may occur. Vianney Ndiaye NP 12/02/2022 1:08 PM Cosigned by Shwetha Rahman MD at 12/02/2022 2:17 PM CDT Associated attestation - Shwetha Rahman MD - 12/02/2022 2:17 PM CDT I personally performed a substantive portion of this patient encounter in conjunction with REPORTS DEVELOPER Vianney Ndiaye. Chief complaint: Right diabetic foot infection of the 1st digit osteomyelitis. Subjective: Denies any pain. Physical exam: Constitutional: Alert and awake. Head and neck: Neck is supple no lymphadenopathy. Lungs: Good bilateral air entry. CVS: Positive S1 and positive S2. Abdomen: Positive bowel sounds nontender. Extremities: No edema. Right foot 1st digit distal necrosis of soft tissue. Skin: No rash. Neurology: No focal neurological deficit Psych: No agitation or anxiety Assessment and plan: 1. Right foot 1st digit necrosis with x-ray suggestive of osteomyelitis. Patient is hesitant for surgical intervention as well as POA. Will plan long-term antibiotics with Rocephin 2 g daily and p.o.doxycycline for 6 weeks. 2. Type 2 diabetes with blood sugars ranging from 06/29 227 3. Acute kidney injury with chronic renal disease. Creatinine is down 2.9. Avoid nephrotoxic agent I spent 19 minutes of non-overlapping time managing the patient independent of REPORTS DEVELOPER Vianney Ndiaye today. * Judie Cheema MSW - 12/02/2022 12:30 PM CDT Update: BONDING AGENT received call back from patient's daughter, Areli, stating that she looked into the three facilities that were accepting patient. Areli stated that she does not like any of the facilities that are accepting patient at this time, and asked if [facility] or [facility] were accepting patient. BONDING AGENT explained that referrals had been sent to both of those facilities and neither facility was accepting patient at this time. Areli voiced understanding and stated that she would just be taking patient home at discharge and would like [facility] Infusion and [facility]. BONDING AGENT voiced understanding and stated that CM would be notified and would work on getting that set up for patient. Areli stated that she would pick patient up at time of discharge and has no other needs or concerns at this time. early childhood services coordinator will remain available to assist as needed. AKASH Patterson 2:34 PM 12/02/2022 * Lee Ann Ross, OT - 12/02/2022 10:27 AM CDT Occupational Therapy 12/02/22 1027 General Chart Reviewed Yes Session Type Evaluation OT Received On 12/02/22 Safe Environment Arm band checked;Patient found in supine;Gait belt utilized for all out of bed mobility Subjective Agreeable to Therapy Additional Pertinent History Pt recently discharged from [facility] 11/06-11/14 and placed in NH for IV abxq ever other day per PICC (11/11) for osteomyelitis of R great toe - pt sent to ED for increased swelling to lower extremities. X-ray R foot worrisome for osteomyelitis. Family/Caregiver Present No Occupational Therapy-Patient Goal to go home Current Functional Status OT Functional Mobility Pt supine in bed upon entering room. Pt transfers supine>sit with min A. Pt transfers sit to stand CGA. Completes functional mobility to/from bathroom x15 ft x2 with 2ww, CGA-min A, cues for walker safety. Pt left sitting upright in chair. OT Self Care Pt bed soiled, notified PCT. Pt completes toileting with mod A for toilet transfer from stnd toilet with GB, CGA for balance while indep comleting yenny-care. Other ADL's estimated based on ROM, MMT, balance, and simulated tasks: UB dressing mod I, LB dressing min A, bathing min A OT Cognition A&O x2. Short Blessed Test for cognition completed with pt scoring OT Communication Able to communicate needs. (10+ indicates impairment consistent with dementia) Precautions Precautions Bed/Chair Alarm;Fall risk RLE heel touch WB due to osteomyelitis until further clarification. May benefit from off-loading shoe. Podiatry is consulted, but no notes in. Secure chat sent to critical care technician for follow-up. Home Living Additional Comments Poor historian. Per chart, pt recently at [facility]. Prior to that, pt was living with dtr in 1 level home. Walk-in shower with shower chair. Standard height toilet. Pt reports if her dtr is not there, somebody else is there to assist. Prior Function Fall within the last 6 months No Prior Function Comments Pt reports she has been walking with assist with ww at SNF and indep dressing herself. Staff assist with cooking/cleaning. Some assist needed with feeding due to tremors dropping food. Assist with showers. Pain Assessment Pain Assessment 0-10 Pain Score 0 - No pain Activity Tolerance Endurance Tolerates 10 - 20 min activity with multiple rests Cognition Cognition Comments x Arousal/Alertness Alert Attention Span Appears intact Memory Decreased short term memory;Decreased recall of recent events Current communication Appears Intact Orientation Oriented to person Following Commands Follows one step commands without difficulty Safety Judgment Decreased awareness of need for safety Awareness of Errors Assistance required to identify errors made Compliance/Behavior Easy to engage Sensation Sensation Comments Pt reports numbness/tingling R hand, reports it is not new Motor Planning Motor Planning Appears intact Coordination Fine Motor Fair (noted tremor R hand limiting FMC) Serial Opposition Good Eye-Hand Coordination Good Mid-line Orientation Good Hand Function Coordination Impaired Gross Grasp Functional Reach/Grasp RUE Reach WFL LUE Reach WFL RUE Grasp Gross grasp (intact, fair strength) LUE Grasp Gross grasp (intact, fair strength) RUE Assessment RUE Comments AROM SH ~100 degrees, 4+/5 strength distally LUE Assessment LUE Comments AROM SH ~100 degrees, 4+/5 strength distally Safe Environment End of Therapy Session Safe Environment End of Therapy Session Patient left in chair;Chair alarm in place and activated;Call light within reach;Overbed table within reach Assessment Prognosis Good Problem List Decreased upper extremity strength;Decreased upper extremity range of motion;Decreasedsafe judgment during ADL;Decreased cognition;Decreased endurance;Decreased balance;Decreased functional mobility;Decreased fine motor control;Decreased ADL independence;Decreased IADL independence;Edema;Gait Plan Plan Plan of care initiated Recommendation/Plan OT Recommendation (S) Long-Term Facility Patient at high risk for Falls;Readmission;Injury due to decreased ability to care for self;Injury due to reduced functional status;Injury due to impaired cognition;Injury due to balance deficits;Injury at home as patient has not returned to prior level of function Recommend SNF due to Risk of injury at home;Unable to safely care for self in the home;Skilled therapy needed to address care for self in the home;Skilled therapy needed for patient to return to prior level of independence;Skilled therapy needed to address functional deficits OT Recommendation/Plan Comments If pt to return home, recommend HHOT and 12/01 spv. OT Frequency during current admission 3-5x/wk Treatment/Interventions during current admission ADL/IADL retraining;Balance Training;Bed mobility;Functional activity;Functional mobility training;Functional transfer training;Strengthening;Therapeutic activity;Therapeutic exercise;Transfer training OT Equipment Recommended Toilet raiser;Commode;Grab bars;Emergency Response Technician OT - Next Appointment 12/16/22 OT Evaluation Complete Yes Pt will benefit from skilled OT in order to increase safety and independence with ADL/IADls, decrease fall risk, promote healing, return to PLOF, decrease pain, and increase quality of life. Education provided to the patient/caregiver regarding the role of occupational therapy, plan of care, goals of therapy, rationale for progressing mobility and use of call light. Verbalized understanding. Multi-Disciplinary Problems (from Occupational Therapy) Active Problems Problem: OT Misc Start Date: 12/02/22 Goal Start Date Expected End Date End Date OT LTG - Misc 1 12/02/22 12/09/22 -- Goal Details: 1) LE ADL SBA WITH AE PRN. Goal Start Date Expected End Date End Date OT LTG - Misc 2 12/02/22 12/09/22 -- Goal Details: 2) FUNCTIONAL MOBILITY TO/FROM BATHROOM AND ALL ASPECTS TOILETING MODIFIED INDEP WITHDME. Goal Start Date Expected End Date End Date OT LTG - Misc 3 12/02/22 12/09/22 -- Goal Details: 3) STAND AT SINK X4 MIN FOR ADL WITH GOOD BALANCE. Goal Start Date Expected End Date End Date OT LTG - Misc 4 12/02/22 12/09/22 -- Goal Details: 4) PERFORM ITEM RETRIEVAL FROM HIGH/LOW POSISITONS WITH GOOD BALANCE/SAFETY. Lee Ann Ross OTR/L * Judie Cheema MSW - 12/02/2022 9:06 AM CDT Update: BONDING AGENT placed call to patient's daughter to follow up regarding discharge planning. BONDING AGENT explained thatia of [facility], [facility], and [facility] are accepting patient at discharge for therapy and completion of IV antibiotics. Patient's daughter voiced understanding and stated she was still deciding between taking patient back home with home health or taking mary ann ent to new facility. Patient's daughter to look into the [facility] as well as [facility] and let BONDING AGENT know what her preference is. BONDING AGENT will await call back from patient's daughter today, or plan to follow up tomorrow. Patient's daughter aware and agreeable to plan. AKASH Patterson 9:11 AM 12/02/2022 * Lulú Valentin - 12/01/2022 12:32 PM CDT PASRR completed Queued for review. Individual ID: [id number] Assessment ID : [id number] Lulú Valentin 12:32 PM 12/01/2022 Cosigned by Lilly Hobson MSW at 12/02/2022 9:01 AM CDT * Shannen Maciel, PT - 12/01/2022 11:14 AM CDT Physical Therapy 12/01/22 1114 General Chart Reviewed Yes Session Type Evaluation Safe Environment Arm band checked;Patient found in supine Additional Pertinent History h/o schizoaffective, DM-PN, HTN, GERD, dementia, Parkinsonism Precautions Precautions Bed/Chair Alarm;Fall risk;Safety Precaution Comments IV Home Living Additional Comments Per chart, pt from [facility] for IV antibiotics Prior Function Prior Function Comments Pt is poor historian. Per chart, pt amb with ww. Pain Assessment Pain Assessment No/denies pain Cognition Orientation Oriented to person;Oriented to place Bed Mobility 1 Bed Mobility From 1 Supine Bed Mobility Type 1 To and from Bed Mobility to 1 Edge of bed Level of Assistance 1 Minimum Assist;Moderate Assist;Moderate verbal cues;Moderate tactile cues (x1) Bed Mobility Comments 1 assist for weakness/balance and cues for sequence/safety/follow through Transfer 1 Transfer From 1 Sit Transfer Type 1 To and from Transfer to 1 Stand Technique 1 Sit to stand;Stand to sit Transfer Level of Assistance 1 Minimum Assist;Minimal verbal cues;Minimal tactile cues;Moderate verbal cues (x1) Trials/Comments 1 (pt stood bedside and sidestepped x 3 ft with min assist of 1 and cues; assist for weakness/balanceand cues for sequence/safety/follow through) PT Treatment/Exercise Comments PT Treatment/Exercise Comments B LE strength 3 to 3+/5. Safe Environment End of Therapy Session Safe Environment End of Therapy Session Patient left supine in bed;Bed alarm in place and activated;Call light within reach;Overbed table within reach Assessment Problem List Decreased strength;Decreased endurance;Impaired balance;Decreased mobility Recommendation/Plan PT Recommendation/Plan (S) Long-Term Facility Patient at high risk for Falls;Readmission;Injury due to decreased ability to care for self;Injury due to reduced functional status;Injury due to balance deficits;Injury at home as patient has not returned to prior level of function Recommend SNF due to Risk of injury at home;Unable to safely care for self in the home;Skilled therapy needed to address care for self in the home;Skilled therapy needed to address functional deficits;Skilled therapy needed for patient to return to prior level of independence PT Frequency during current admission 3-5x/wk (1-2 times daily) Treatment/Interventions during current admission Balance Training;Bed mobility;Endurance training;Functional activity;Functional transfer training;Gait training;Strengthening;Therapeutic activity;Therapeutic exercise;Transfer training PT - Next Appointment 12/15/22 PT Evaluation Complete Yes Multi-Disciplinary Problems (from Physical Therapy) Active Problems Problem: PT [facility] [place] Start Date: 12/01/22 Goal Start Date Expected End Date End Date PT LTG - [facility] [place] 10 12/01/22 12/15/22 -- Goal Details: Will amb 20 ft with ww and min assist of 2 and cues Goal Start Date Expected End Date End Date PT RUST - [facility] [place] 1 12/01/22 12/08/22 -- Goal Details: Will transfer bed<>chair with ww and min assist of 1 and cues Goal Start Date Expected End Date End Date PT RUST - [facility] [place] 2 12/01/22 12/08/22 -- Goal Details: Will perform AROM ex x B LE with min cues Educated the patient to the role of physical therapy, plan of care, goals of therapy, rationale forprogressing mobility and home exercise program and home safety. Patient was left with all needs met and equipment intact. Mobility and ADL status posted at bedsideand within medical record. * Aylin Kauffman MD - 12/01/2022 9:55 AM CDT Images from the original note were not included. General Medicine Daily Progress Subjective Chief complaint of B/L LE swelling, right great toe swelling Interval History: no acute events overnight Past Medical History: Diagnosis Date Arthritis Dementia (HCC) Depression Diabetic neuropathy (HCC) Hyperlipidemia Hypertension Renal disorder Schizophrenia (HCC) Type 2 diabetes mellitus (HCC) Objective Vitals: 24hr Min/Max: Temp Min: 36.8 ??C (98.2 ??F) Max: 37.7 ??C (99.9 ??F) Pulse Min: 78 Max: 88 BP Min: 115/62 Max: 163/68 Resp Min: 16 Max: 18 SpO2 Min: 92 % Max: 97 % Most Recent : Vitals: 12/01/22 0728 BP: 163/68 Pulse: 88 Resp: 18 Temp: 36.9 ??C (98.4 ??F) SpO2: 92% I/O last 2 completed shifts: In: 150 [P.O.:150] Out: - No intake/output data recorded. Physical Exam: Physical Exam HENT: Head: Normocephalic. Mouth/Throat: Mouth: Mucous membranes are moist. Pharynx: Oropharynx is clear. Eyes: General: No scleral icterus. Pupils: Pupils are equal, round, and reactive to light. Cardiovascular: Rate and Rhythm: Normal rate and regular rhythm. Pulmonary: Comments: Decreased breath sounds B/L Abdominal: General: Bowel sounds are normal. There is no distension. Palpations: Abdomen is soft. Musculoskeletal: Cervical back: Neck supple. Right lower leg: Edema present. Left lower leg: Edema present. Comments: Right great toe wound present Neurological: Mental Status: She is alert and oriented to person, place, and time. Psychiatric: Mood and Affect: Mood normal. Lab/Radiology/Diagnostic Review: Recent Results (from the past 24 hour(s)) POCT glucose Collection Time: 11/30/22 3:04 PM Result Value Ref Range Glucose, POC 116 70 - 199 mg/dL ABO/Rh Collection Time: 11/30/22 3:35 PM Result Value Ref Range ABO/Rh B Positive Antibody screen Collection Time: 11/30/22 3:35 PM Result Value Ref Range Regi, indirect, Gel Interpretation Negative ABSC ABO / Rh Confirmation Testing Collection Time: 11/30/22 4:13 PM Result Value Ref Range ABO/Rh Confirmation B Positive Hemoglobin and hematocrit Collection Time: 11/30/22 4:13 PM Result Value Ref Range Hgb 8.6 (L) 11.9 - 15.5 g/dL Hct 27.5 (L) 35.6 - 45.5 % Hemoglobin A1c Collection Time: 11/30/22 4:13 PM Result Value Ref Range Hgb A1C 7.1 (H) 4.0 - 5.6 % Estimated Average Glucose 157 mg/dL Iron profile w/ IBC Collection Time: 11/30/22 6:35 PM Result Value Ref Range Iron 26 (L) 35 - 145 mcg/dL TIBC 140 (L) 250 - 400 mcg/dL Transferrin saturation 19 (L) 20 - 50 % Vitamin B12 Collection Time: 11/30/22 6:35 PM Result Value Ref Range Vitamin B12 593 230 - 1,250 pg/mL Urinalysis reflex to microscopic and culture Urine Collection Time: 11/30/22 7:15 PM Specimen: Urine Result Value Ref Range Color, ur Yellow Yellow Clarity, ur Cloudy (A) Clear Specific gravity, ur 1.005 1.003 - 1.030 pH, urine 5.0 Protein, ur ql 1+ (A) Negative Glucose, ur ql Negative Negative Ketones, ur Negative Negative Bilirubin, ur Negative Negative Blood, ur Negative Negative Urobilinogen, ur <2.0 <2.0 mg/dL Nitrite, ur Negative Negative Leukocyte esterase, ur 4+ (A) Negative UA reflex comment Reflex to microscopic UA will be performed. Urinalysis, microscopic only Collection Time: 11/30/22 7:15 PM Result Value Ref Range WBC, ur >50 (A) 0 - 5 /HPF RBC, ur 6-10 (A) 0 - 2 /HPF Epithelial cells, squamous, ur 1-5 0 - 5 /HPF Bacteria, ur Trace (A) Culture Reflex Comment Reflex to urine culture will be performed. POCT glucose Collection Time: 11/30/22 8:34 PM Result Value Ref Range Glucose, POC 174 70 - 199 mg/dL Glucose comment 1 Use This Result Glucose comment 2 RN/MD Notified POCT glucose Collection Time: 12/01/22 7:55 AM Result Value Ref Range Glucose, POC 128 70 - 199 mg/dL Comprehensive metabolic panel Collection Time: 12/01/22 9:09 AM Result Value Ref Range Sodium 138 135 - 145 mmol/L Potassium, pl 5.0 (H) 3.3 - 4.9 mmol/L Chloride 105 97 - 110 mmol/L CO2 22 22 - 32 mmol/L Anion gap 11 2 - 15 mmol/L BUN 46 (H) 8 - 25 mg/dL Creatinine 2.70 (H) 0.60 - 1.10 mg/dL Glucose 158 70 - 199 mg/dL Calcium 9.0 8.5 - 10.3 mg/dL Bilirubin, total 0.3 0.1 - 1.2 mg/dL Protein, pl 7.3 6.5 - 8.5 g/dL Albumin 3.3 (L) 3.5 - 5.0 g/dL Alk phos 94 40 - 130 Units/L ALT 8 7 - 45 Units/L AST 13 10 - 45 Units/L CBC with auto differential Collection Time: 12/01/22 9:09 AM Result Value Ref Range WBC 8.9 3.8 - 9.9 K/cumm Hgb 8.2 (L) 11.9 - 15.5 g/dL Hct 25.5 (L) 35.6 - 45.5 % Plt 289 150 - 400 K/cumm MPV 10.8 9.1 - 12.3 fL RBC 2.69 (L) 3.90 - 5.20 M/cumm MCV 94.8 81.3 - 96.4 fL MCH 30.5 27.1 - 33.3 pg MCHC 32.2 (L) 32.3 - 35.7 g/dL RDW CV 16.0 (H) 11.1 - 14.9 % RDW SD 56.0 (H) 35.7 - 48.1 fL NRBC abs 0.00 0.00 - 0.01 K/cumm Magnesium Collection Time: 12/01/22 9:09 AM Result Value Ref Range Magnesium 2.4 1.4 - 2.5 mg/dL Differential, auto Collection Time: 12/01/22 9:09 AM Result Value Ref Range Neutrophil abs 5.9 1.7 - 6.5 K/cumm Imm gran abs 0.0 0.0 - 0.1 K/cumm Lymphocyte abs 2.2 0.8 - 3.3 K/cumm Monocyte abs 0.6 0.2 - 0.8 K/cumm Eosinophil abs 0.1 0.0 - 0.5 K/cumm Basophil abs 0.0 0.0 - 0.1 K/cumm Neutrophil pct 66.5 % Imm gran pct 0.1 % Lymphocyte pct 25.1 % Monocyte pct 6.7 % Eosinophil pct 1.3 % Basophil pct 0.3 % eGFR Collection Time: 12/01/22 9:09 AM Result Value Ref Range eGFR 18 mL/min/1.73 m2 POCT glucose Collection Time: 12/01/22 11:46 AM Result Value Ref Range Glucose, POC 181 70 - 199 mg/dL Current Facility-Administered Medications Medication Dose Route Frequency Provider Last Rate Last Admin albuterol HFA (PROVENTIL HFA,VENTOLIN HFA,PROAIR HFA) 90 mcg/actuation inhaler 2 puff 2 puff inhalation Q4H PRN (RT) Tahmina Charles, REPORTS DEVELOPER amLODIPine (NORVASC) tablet 5 mg 5 mg oral Nightly Tahmina Charles REPORTS DEVELOPER 5 mg at 11/30/222038 atorvastatin (LIPITOR) tablet 20 mg 20 mg oral Nightly Tahmina Charles, REPORTS DEVELOPER 20 mg at 11/30/222038 benztropine (COGENTIN) tablet 1.5 mg 1.5 mg oral Nightly Tahmina Charles, REPORTS DEVELOPER 1.5 mg at 11/30/222037 bisacodyL (DULCOLAX) suppository 10 mg 10 mg rectal Daily PRN Tahmina Charles NP Carrier Fluids for Secondary Infusion - 0.9% Sodium Chloride 30 mL intravenous PRN Tahmina Charles, REPORTS DEVELOPER 30 mL at 11/30/22 1658 carvediloL (COREG) tablet 12.5 mg 12.5 mg oral BID with meals (bkfst, dinner) Tahmina Charles REPORTS DEVELOPER 12.5 mg at 12/01/22 0942 dextrose (GLUTOSE) 40 % gel 15 g 15 g oral Q15 Min PRN Tahmina Charles NP Or dextrose (D10W) 10% bolus 250 mL 250 mL intravenous Q15 Min PRN Tahmina Charles NP enoxaparin (LOVENOX) syringe 30 mg 30 mg subcutaneous Daily-2099 Skip Fabian MD 30 mg at 11/30/222038 famotidine (PEPCID) tablet 10 mg 10 mg oral Daily Tahmina Charles, REPORTS DEVELOPER 10 mg at 06/12/23 0942 furosemide (LASIX) 10 mg/mL injection 40 mg 40 mg intravenous Daily Skip Fabian MD 40 mg at 12/01/22942 glucagon injection 1 mg 1 mg intramuscular Q30 Min PRN Tahmina Charles, JARAD insulin lispro (HumaLOG, ADMELOG) 100 unit/mL injection 0-10 Units 0-10 Units subcutaneous TID withmeals Tahmina Charles NP insulin lispro (HumaLOG, ADMELOG) 100 unit/mL injection 0-5 Units 0-5 Units subcutaneous Nightly Tahmina Charles, REPORTS DEVELOPER 1 Units at 11/30/22 2100 [Held by Provider] insulin lispro (HumaLOG, ADMELOG) 100 unit/mL injection 7 Units 0.083 Units/kg subcutaneous TID with meals Skip Fabian MD [Held by Provider] losartan (COZAAR) tablet 100 mg 100 mg oral Daily Skip Fabian MD metroNIDAZOLE (FLAGYL) tablet 500 mg 500 mg oral TID Skip Fabian MD 500 mg at 12/01/22941 multivitamin with folic acid 400 mcg tablet 1 tablet 1 tablet oral Daily Skip Fabian MD 1tablet at 12/01/22941 ondansetron ODT (ZOFRAN-ODT) disintegrating tablet 4 mg 4 mg oral Q6H PRN Tahmina Charles NP Or ondansetron (ZOFRAN) injection 4 mg 4 mg intravenous Q6H PRN Tahmina Charles, JARAD polyethylene glycol (MIRALAX) packet 17 g 17 g oral Daily PRN Tahmina Charles, JARAD pregabalin (LYRICA) capsule 75 mg 75 mg oral Nightly Tahmina Charles, REPORTS DEVELOPER 75 mg at 11/30/222038 risperiDONE (RisperDAL) tablet 2 mg 2 mg oral Nightly Tahmina Charles, REPORTS DEVELOPER 2 mg at 11/30/222037 sodium chloride (OCEAN) 0.65 % nasal spray 2 spray 2 spray each nostril BID PRN Rick North MD sodium chloride 0.9% flush 0.5-20 mL 0.5-20 mL intra-catheter Q8H SOL Tahmina Charles., REPORTS DEVELOPER 10 mL at12/01/22 0540 sodium chloride 0.9% flush 0.5-20 mL 0.5-20 mL intra-catheter PRN Tahmina Charles, REPORTS DEVELOPER Vancomycin per Pharmacy 1 mg intravenous PRN Skip Fabian MD Assessment/Plan 72 years old F with PMH of Diabetes, HTN, CKD presented [place] with increased swelling from past few weeks, she has been on IV abx for right great toe osteomyelitis 1)Acute renal failure superimposed on chronic kidney disease Stage 4: Appreciate Renal help Avoid nephrotoxins Recheck BMP in AM Noted hyperkalemia, will monitor C/w Lasix Strict I/O's Hold losartan 2)Elevated BNP: Normal EF with last echo ?Diastolic HF along with volume overload in setting of STEFANO with CKD C/w Lasix Await echo 3)Type 2 diabetes HBA1C 7.1 BG check TID AC and HS C/w SS insulin Hold meal time insulin 4)Chronic osteomyelitis: As evidenced by right foot x-ray - toe necrosis local continue wound care Await ID and Podiatry help C/w vanc+Flagyl 5)HTN: Increase norvasc dose Holding losartan C/w coreg 6)DVT prophylaxis: hep SQ 7)Code:Full 8)Dispo:pending improvement My total encounter time on 12/01/2022 was 38 minutes which was spent in the activities documented inthe note. This includes time spent prior to the visit and after the visit in direct care of the patient. This time does not include time spent in any separately reportable services. Complexity:moderate For patients or family members viewing this note through [employer]: This note was written as a communication tool between healthcare providers and may contain technical language, terminology and abbreviations that is difficult to interpret without advanced medical training. If you have questions or concerns regarding what is written in this note, please request to speak with the primary medical team taking care of you or your family member Aylin Kauffman MD 12/01/2022 2:54 PM * Audie Nugent - 11/30/2022 3:53 PM CDT 11/30/22 1800 Time Spent Start Time 1553 Patient Spiritual Assessment Spirituality Assessed Yes Sabianism Affiliation Anglican Active in Restorationist No (Receptive to pastoral care/prayer) Clinical Encounter Type Visited With Patient (Daughter) Response Type Routine visit Routine Visit Introduction Reason for visit Support Advance Directives (For Healthcare) Have you reviewed your Advance Directive and is it valid for this stay? Not applicable Advance Directive Patient does not have advance directive;Patient refused information Information Provided on Healthcare Directives Yes Pre-existing DNR/DNI Order No Patient Requests Assistance No Offered support to pt and daughter in room. Pt was receptive, feeling better, and well supported bydaughter. Pt's biggest concern is both feet, and especially the big toe on rt foot. Pt is maintaining a good attitude and appreciated Scripture encouragement and prayer for recovery and healing. * Nelly Varela [facility] - 11/30/2022 2:53 PM CDT Pharmacy Medication Reconciliation Note Patient Sixto Chakraborty is a 72 y.o. female who presents to [facility] ED-[id number]. The prior to admission home medication list was reviewed by pharmacy. Prior to Admission medications Medication Sig Start Date End Date Taking? Authorizing Provider amino acids-protein hydr-fiber (Pro-Stat Renal Care) 15-100 gram-kcal/30 mL liquid Take 30 mL by mouth 2 (two) times a day Yes Provider, MD Joe amLODIPine (NORVASC) 5 mg tablet Take 1 tablet (5 mg total) by mouth nightly 11/13/22 12/13/22 Yes Cristóbal Gould DO apixaban (ELIQUIS) 5 mg tablet Take 1 tablet (5 mg total) by mouth 2 (two) times a day Yes Provider, MD Joe ascorbic acid 500 mg tablet,chewable Take 1 tablet/chew tab (500 mg total) by mouth 2 (two) times aday Yes Provider, MD Joe benztropine (COGENTIN) 1 mg tablet Take 1.5 tablets (1.5 mg total) by mouth nightly 11/13/22 12/13/22Yes Cristóbal Gould DO carvediloL (COREG) 12.5 mg tablet Take 1 tablet (12.5 mg total) by mouth 2 (two) times a day with meals 11/13/22 12/13/22 Yes Cristóbal Gould DO dulaglutide (TRULICITY) 1.5 mg/0.5 mL pen injector Inject 0.5 mL (1.5 mg total) under the skin oncea week on Mondays Yes Joe Ballard MD famotidine (PEPCID) 10 mg tablet Take 1 tablet (10 mg total) by mouth daily Yes Joe Ballard MD furosemide (LASIX) 20 mg tablet Take 1 tablet (20 mg total) by mouth daily 11/29/22 12/04/22 Yes Joe Ballard MD furosemide (LASIX) 40 mg tablet Take 1 tablet (40 mg total) by mouth daily as needed (Weight Gain >4lbs above dry weight.) 11/13/22 12/13/22 Yes Cristóbal Gould DO insulin glargine 100 unit/mL (3 mL) pen for injection Inject 25 Units under the skin nightly Yes Joe Ballard MD insulin lispro (HumaLOG, ADMELOG) 100 unit/mL pen for injection Inject 12 Units under the skin 3 (three) times a day before meals plus sliding scale Yes Joe Ballard MD insulin lispro (HumaLOG, ADMELOG) [...] 12 units BG >400 = call MD Yes Joe Ballard MD lidocaine (ASPERCREME) 4 % adhesive patch,medicated Place 1 patch on the skin daily to lower back Yes Joe Ballard MD losartan (COZAAR) 100 mg tablet Take 1 tablet (100 mg total) by mouth daily 11/14/22 12/14/22 Yes Cristóbal Gould DO metroNIDAZOLE (FLAGYL) 500 mg tablet Take 1 tablet (500 mg total) by mouth 3 (three) times a day 11/13/22 12/23/22 Yes Cristóbal Gould DO multivitamin with minerals tablet Take 1 tablet by mouth daily Yes Joe Ballard MD pregabalin (LYRICA) 150 mg capsule Take 1 capsule (150 mg total) by mouth nightly 11/13/22 12/13/22 Yes Cristóbal Gould DO risperiDONE (RisperDAL) 2 mg tablet Take 1 tablet (2 mg total) by mouth nightly 11/13/22 12/13/22 YesCristóbal Gould DO Saccharomyces boulardii (FLORASTOR) 250 mg capsule Take 1 capsule (250 mg total) by mouth 2 (two) times a day while receiving antibiotic therapy 11/14/22 12/13/22 Yes Joe Ballard MD vancomycin IVBP Infuse 200 mL (1 g total) into a venous catheter every other day for cellulitis of right great toe 11/19/22 12/23/22 Yes ProviderJoe MD acetaminophen (TYLENOL) 325 mg tablet Take 2 tablets (650 mg total) by mouth every 6 (six) hours asneeded for pain Joe Ballard MD albuterol HFA (ProAir HFA) 90 mcg/actuation inhaler Inhale 2 puffs every 4 (four) hours as needed for wheezing or shortness of breath 11/13/22 12/13/22 Cristóbal Gould DO atorvastatin (LIPITOR) 20 mg tablet Take 1 tablet (20 mg total) by mouth nightly ProviderJoe MD bisacodyL (DULCOLAX) 10 mg suppository Insert 1 suppository (10 mg total) into the rectum daily as needed for constipation ProviderJoe MD bisacodyL (FLEET-BISACODYL) 10 mg/30 mL enema Insert 30 mL (10 mg total) into the rectum daily as needed for constipation (if no results 24 hours after suppository) ProviderJoe MD compres.stocking,thigh,reg,med misc Wear as much as possible 05/28/21 Duane Corcoran MD flash glucose scanning reader (FreeStyle Madhav 2 Lawrence) misc Use to continually monitor glucose 10/01/21 Anant Kauffman MD flash glucose sensor (FreeStyle Madhav 2 Sensor) kit Use to continually monitor glucose, change every 14 days 10/28/22 Anant aKuffman MD magnesium citrate solution Take 296 mL by mouth daily as needed (for constipation if no results after enema) ProviderJoe MD magnesium hydroxide (MILK OF MAGNESIA) suspension 400 mg/5 mL Take 30 mL by mouth nightly as needed(constipation if no bowel movement in 3 days) ProviderJoe MD polyethylene glycol (MIRALAX) 17 gram packet Take 1 packet (17 g total) by mouth daily as needed for constipation ProviderJoe MD The patient???s home medication list has been reconciled and updated as follows: - Orders that were discontinued: Vancomycin 1045 mg order Syringes Omeprazole BP cuff Lancets BP kit Pen needles - Orders that were added: Acetaminophen Pro-Stat Apixaban Ascorbic acid Bisacodyl suppository Bisacodyl enema Trulicity Famotidine Furosemide 20 mg x 5 days Insulin glargine Insulin lispro (scheduled + sliding scale) Lidocaine patch Magnesium citrate Milk of magnesia MVI Miralax Probiotic Vancomycin 1000 mg order - Orders that were changed (doses/frequency/formulation): Atorvastatin - Additional comments/recommendations: [facility] [place] 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 Spoke with caregiver at bedside as well to confirm home meds prior to facility. Per RN, patient received all AM medications and insulin lispro 12 units before breakfast today (no sliding scale needed). She has not received lunchtime insulin yet. Allergies and pharmacy preference confirmed/updated. Sources of information for this medication reconciliation include: care facility, caregiver, family member, medication list, and prescription fill history Nelly Varela RPh 11/30/2022 2:42 PM documented in this encounter H&P Notes * Tahmina Charles NP - 11/30/2022 1:21 PM CDT Images from the original note were not included. History and Physical Hospitalists services Date of service: 11/30/2022 Primary care provider: Duane Corcoran MD CC: Bilateral lower extremity swelling, right great toe swelling HPI: Sixto Chakraborty a 72 y.o. female pt with a PMHx of but not limited to arthritis, dementia, depression, diabetic neuropathy, hyperlipidemia, hypertension, renal disorder, schizophrenia, type 2 diabeteswho presented to the ED from jail in [place] with reports of increased swelling over the last several weeks since she was admitted to short-term nursing facility. Patient not able to provide reliable history Per chart review: patient previously was on scheduled Lasix but jail had not been giving the patient any Lasix stating it was a p.r.n. order. Pt previously had a prescription for 20 mg of Lasix once a day. She is in rehab for her toe and has a PICC line Notable labs include elevated creatinine 2.70 from baseline 1.8, albumin is 2.9, H GB 7.9, HCT 25.0, anemia, x-ray who right great toe reveals osteomyelitis ED Workup: Patient was given 500 mL normal saline bolus Arrival Vitals [11/30/22 1111] Temp 36.9 ??C (98.4 ??F) Pulse 76 Resp 17 BP 150/57 SpO2 98 % Temp src Oral Heart Rate Source Patient Position BP Location FiO2 (%) Past Medical History: Diagnosis Date Arthritis Dementia [...] Relation Age of Onset Stomach cancer Father OBJECTIVE: Vitals: Most Recent : Vitals: 11/30/22 1111 BP: 150/57 Pulse: 76 Resp: 17 Temp: 36.9 ??C (98.4 ??F) SpO2: 98% No intake or output data in the 24 hours ending 11/30/22 1321 Upon assessment Patient is awake, daughter is by the bedside Physical Exam: Gen: In no acute distress Head: Normocephalic, atraumatic Neck: No JVD, supple ENT: Moist oral mucosa Heart/CV: RRR, normal S1/S2, no S3/S4, no murmur/gallop, + bilateral pedal edema, normal peripheralpulses Lungs/Resp: Non-labored breathing, CTAB Abdomen/GI: Non-distended, soft and nontender; normal bowel sounds : No CVA tenderness MSK: No extremity deformity, normal ROM of all extremities Neuro: Alert; oriented x 2-3; mild confusion Skin: Right great toe infection wound Psych: Normal affect Lab/Radiology/Diagnostic Review: Recent Results (from the past 24 hour(s)) CBC with auto differential Collection Time: 11/30/22 11:43 AM Result Value Ref Range WBC 9.9 3.8 - 9.9 K/cumm Hgb 7.9 (L) 11.9 - 15.5 g/dL Hct 25.0 (L) 35.6 - 45.5 % Plt 272 150 - 400 K/cumm MPV 10.6 9.1 - 12.3 fL RBC 2.61 (L) 3.90 - 5.20 M/cumm MCV 95.8 81.3 - 96.4 fL MCH 30.3 27.1 - 33.3 pg MCHC 31.6 (L) 32.3 - 35.7 g/dL RDW CV 15.9 (H) 11.1 - 14.9 % RDW SD 56.4 (H) 35.7 - 48.1 fL NRBC abs 0.00 0.00 - 0.01 K/cumm Comprehensive metabolic panel Collection Time: 11/30/22 11:43 AM Result Value Ref Range Sodium 142 135 - 145 mmol/L Potassium, pl 4.9 3.3 - 4.9 mmol/L Chloride 110 97 - 110 mmol/L CO2 23 22 - 32 mmol/L Anion gap 9 2 - 15 mmol/L BUN 47 (H) 8 - 25 mg/dL Creatinine 2.70 (H) 0.60 - 1.10 mg/dL Glucose 124 70 - 199 mg/dL Calcium 8.6 8.5 - 10.3 mg/dL Bilirubin, total <0.2 0.1 - 1.2 mg/dL Protein, pl 6.9 6.5 - 8.5 g/dL Albumin 2.9 (L) 3.5 - 5.0 g/dL Alk phos 96 40 - 130 Units/L ALT 9 7 - 45 Units/L AST 13 10 - 45 Units/L Pro B-type natriuretic peptide Collection Time: 11/30/22 11:43 AM Result Value Ref Range NT-proBNP 361 (H) <=300 pg/mL Differential, auto Collection Time: 11/30/22 11:43 AM Result Value Ref Range Neutrophil abs 6.6 (H) 1.7 - 6.5 K/cumm Imm gran abs 0.0 0.0 - 0.1 K/cumm Lymphocyte abs 2.3 0.8 - 3.3 K/cumm Monocyte abs 0.8 0.2 - 0.8 K/cumm Eosinophil abs 0.2 0.0 - 0.5 K/cumm Basophil abs 0.0 0.0 - 0.1 K/cumm Neutrophil pct 66.6 % Imm gran pct 0.2 % Lymphocyte pct 23.2 % Monocyte pct 8.1 % Eosinophil pct 1.6 % Basophil pct 0.3 % eGFR Collection Time: 11/30/22 11:43 AM Result Value Ref Range eGFR 18 mL/min/1.73 m2 XR Toe Great Right Minimum 2 Views [...] 11/30/2022 1:13 PM -Electronically signed by Adryan Vick M.D. JS T: Report ID: [id number] Reading Location: [id number] XR Chest 1 Vw Portable Result Date: [...] signed by Adryan PAZ T: Report ID: [id number] Reading Location: [id number] MRI Foot Right WO Contrast Result Date: [...] Mir Zavaleta M.D. CT Head WO Contrast Result Date: [...] Electronically signed by: Phil Pete II, D.O. Current Facility-Administered Medications Medication Dose Route Frequency Provider Last Rate Last Admin sodium chloride 0.9% bolus 500 mL 500 mL intravenous Once Mee Dominguez, DO 500 mL/hr at 11/30/22 1251 500 mL at 11/30/22 1251 Current Outpatient Medications Medication Sig Dispense Refill albuterol HFA (ProAir HFA) 90 mcg/actuation inhaler Inhale 2 puffs every 4 (four) hours as needed for wheezing or shortness of breath 8.5 g 0 amLODIPine (NORVASC) 5 mg tablet Take 1 tablet (5 mg total) by mouth nightly 30 tablet 0 atorvastatin (LIPITOR) 20 mg tablet Take 1 tablet (20 mg total) by mouth daily 30 tablet 0 BD Arlyn 2nd Gen Pen Needle 32 gauge x needle USE TO INJECT BASAGLAR EVERY NIGHT AT BEDTIME benztropine (COGENTIN) 1 mg tablet Take 1.5 tablets (1.5 mg total) by mouth nightly 45 tablet 0 blood pressure monitor kit Check BP as instructed 1 kit 0 carvediloL (COREG) 12.5 mg tablet Take 1 tablet (12.5 mg total) by mouth 2 (two) times a day with meals 60 tablet 0 conner.stocking,thigh,reg,med misc Wear as much as possible 2 each 1 flash glucose scanning reader (FreeStyle Madhav 2 Lawrence) misc Use to continually monitor glucose 1 each 0 flash glucose sensor (FreeStyle Madhav 2 Sensor) kit Use to continually monitor glucose, change every 14 days 6 kit 3 furosemide (LASIX) 40 mg tablet Take 1 tablet (40 mg total) by mouth daily as needed (Weight Gain >4lbs above dry weight.) (Patient taking differently: Take 0.5 tablets (20 mg total) by mouth daily as needed (Weight Gain >4lbs above dry weight.)) 15 tablet 0 lancets [facility] Check blood sugar up to 3 times a day 100 each 3 losartan (COZAAR) 100 mg tablet Take 1 tablet (100 mg total) by mouth daily 30 tablet 0 metroNIDAZOLE (FLAGYL) 500 mg tablet Take 1 tablet (500 mg total) by mouth 3 (three) times a day 90tablet 1 miscellaneous medical supply (Blood Pressure Cuff) mis Use to check blood pressure daily 1 each 1 pregabalin (LYRICA) 150 mg capsule Take 1 capsule (150 mg total) by mouth nightly 30 capsule 0 risperiDONE (RisperDAL) 2 mg tablet Take 1 tablet (2 mg total) by mouth nightly 30 tablet 0 syringe with needle, insulin (INSULIN SYRINGE-NEEDLE U-100 [facility]) 3 times a day vancomycin IVBP Infuse 209 mL (1,045 mg total) into a venous catheter every other day 3971 mL 0 Principal Problem: Acute renal failure superimposed on chronic kidney disease, unspecified CKD stage, unspecified acute renal failure type (HCC) Active Problems: Type 2 diabetes mellitus with diabetic neuropathy, with long-term current use of insulin (CMS/HCC) (HCC) Gastroesophageal reflux disease Toe necrosis (CMS/HCC) (HCC) Anemia in stage 4 chronic kidney disease (HCC) Resolved Problems: No resolved hospital problems. Assessment and Plan: Acute renal failure superimposed on chronic kidney disease: Suspect etiology from long-term antibiotic use for osteomyelitis -appreciate nephrology recommendation and plan -s/p furosemide 40mg IV in the ED -BUN 47;Creatinine 2.70; baseline creatinine 1.8 -gentle rehydration -Avoid nephrotoxins -Monitor/record intake and output -telemetry monitoring -monitor and replete electrolytes -recheck BMP in the a.m. Elevated BNP: 361, last echo 06/20/2022 HFpEF 60-65% ;LAV mildly dilated, trace mitral regurgitation, no aortic stenosis, trace pulmonic valvular regurgitation anterior pericardial fat pad noted -continue telemetry monitoring -check TTE -continue home medication -continue carvedilol Albumin 2.9 -give albumin 25 g IV once Type 2 diabetes, uncontrolled last A1c 0 1-2 3 was 8.8 -hold home medication -SSI in the acute care setting -continue check POCT q.4 hrs -check A1c Chronic osteomyelitis: As evidenced by right foot x-ray - toe necrosis -continue wound care -consult Infectious Disease Hgb 7.9 -continue to trend H&H -transfuse if Hgb <7 Home medications: continue all other home medications as listed -continue Amlodipine History of GERD -continue famotidine DVT prophylaxis: Apixaban Anticipated length of stay to be: >2 days My total encounter time on 11/30/2022 was 32 minutes which was spent in the activities documented inthe note. This includes time spent prior to the visit and after the visit in direct care of the patient. This time does not include time spent in any separately reportable services. MDM complexity: Moderate Advance Care Planning Advance Care Planning Conversation Pertinent diagnoses: Osteomyelitis right great toe The patient and/or family consented to a voluntary Advance Care Planning conversation. Individuals present for the conversation: family member(s)/loved one(s): Daughter Summary of the conversation: Code Status: Full code I spent 3 minutes providing separately identifiable ACP services with the patient and/or surrogate decision maker in a voluntary, in-person conversation discussing the patient's wishes and goals as detailed in the above note. Tahmina Charles NP Voice recognition software [employer] Direct was used dictate and transcribe this document. Steel Sampler variances may occur. Despite proofreading, typographical errors may occur. Date of Service: 11/30/2022 Tahmina Charles NP 1:[address] [facility] Hospitalist [facility] Cosigned by Skip Fabian MD at 11/30/2022 4:43 PM CDT Associated attestation - Skip Fabian MD - 11/30/2022 4:43 PM CDT I have seen and examined the patient on 11/30/22. I agree with the findings and plan of care as documented in the REPORTS DEVELOPER's note.. Anasarca ARF on CKD DM 2 - holding humalog 7 u tid.. Lantus reduced to 12 u from 25 as BG tight control at present. Uptitrate as per trend. Right foot first toe OM, ulcer - wound cx - 11/08 - MRSA - on vanc and flagyl until 12/23. (REFUSED AMPUTATION) TEO - normal - 10/2022 - seen by vascular for non healing ulcer at [facility] - Dr El, no intervention. Only ASA 81 recommended. Hx of bacteremia with strep mitis on 09/2022 - completed abx. Anemia workup Hx of DVT - off eliquis after a year of usage HTN Schizophrenia - on risperadal. Movement disorder - parkinosnian tremors - felt from dementia versus risperidal - on benztropine. Dementia Repeat Hb at baseline - resumed lovenox for DVT prophylaxis.. Might need procrit with Renal. ASA 81 if hb contd stable. Contd ABx, podiatry consult. Wound care, renal consult. Pt and her daughter updated. DW REPORTS DEVELOPER. Further plan changes once more info available. documented in this encounter Consult Notes * Shwetha Rahman MD - 12/01/2022 6:25 PM CDTAssociated Order(s): IP CONSULT TO INFECTIOUS DISEASES Infectious Disease Consult Requesting physician: Dr. Kauffman Date of consultation: 12/01/2022 Reason for consultation: Right diabetic foot infection of 1st digit HPI: 72-year-old female with significant past medical history for type 2 diabetes, hypertension, hyperlipidemia, depression, dementia and schizophrenia presented to the emergency room from an extended care facility with bilateral lower extremity edema. Patient was also noted to have right foot 1st digitdistal aspect soft tissue necrosis with no drainage or erythema. X-ray of the right foot 1st digit showed interval bone reabsorption of the right tip of the tuft worrisome for osteomyelitis. I was requested to see her for further evaluation. Currently no complaints of pain. Minimal peripheral neuropathy. Past Medical History: Diagnosis Date Arthritis Dementia (HCC) Depression Diabetic neuropathy (HCC) Hyperlipidemia Hypertension Renal disorder Schizophrenia (HCC) Type 2 diabetes mellitus (HCC) Past Surgical History: Procedure Laterality Date SECTION Right right foot TOE AMPUTATION Right 01/06/2020 4th toe amp/ foot debridement/ Dr. Anat Pelayo HOME MEDICATIONS : amino acids-protein hydr-fiber (Pro-Stat Renal Care) 15-100 gram-kcal/30 mL liquid amLODIPine (NORVASC) 5 mg tablet ascorbic acid 500 mg tablet,chewable benztropine (COGENTIN) 1 mg tablet carvediloL (COREG) 12.5 mg tablet dulaglutide (TRULICITY) 1.5 mg/0.5 mL pen injector famotidine (PEPCID) 10 mg tablet furosemide (LASIX) 20 mg tablet furosemide (LASIX) 40 mg tablet insulin glargine 100 unit/mL (3 mL) pen for injection insulin lispro (HumaLOG, ADMELOG) 100 unit/mL pen for injection insulin lispro (HumaLOG, ADMELOG) 100 unit/mL pen for injection lidocaine (ASPERCREME) 4 % adhesive patch,medicated losartan (COZAAR) 100 mg tablet metroNIDAZOLE (FLAGYL) 500 mg tablet multivitamin with minerals tablet pregabalin (LYRICA) 150 mg capsule risperiDONE (RisperDAL) 2 mg tablet Saccharomyces boulardii (FLORASTOR) 250 mg capsule vancomycin IVBP acetaminophen (TYLENOL) 325 mg tablet albuterol HFA (ProAir HFA) 90 mcg/actuation inhaler atorvastatin (LIPITOR) 20 mg tablet bisacodyL (DULCOLAX) 10 mg suppository bisacodyL (FLEET-BISACODYL) 10 mg/30 mL enema conner.stocking,thigh,reg,med misc flash glucose scanning reader (FreeStyle Madhav 2 [place]) misc flash glucose sensor (FreeStyle Madhav 2 Sensor) kit magnesium citrate solution magnesium hydroxide (MILK OF MAGNESIA) suspension 400 mg/5 mL polyethylene glycol (MIRALAX) 17 gram packet omeprazole (PriLOSEC) 20 mg capsule Current Facility-Administered Medications Ordered in [facility] Medication Dose Route Frequency Provider Last Rate Last Admin albuterol HFA (PROVENTIL HFA,VENTOLIN HFA,PROAIR HFA) 90 mcg/actuation inhaler 2 puff 2 puff inhalation Q4H PRN (RT) Tahmina Charles NP amLODIPine (NORVASC) tablet 10 mg 10 mg oral Nightly Aylin Kauffman MD atorvastatin (LIPITOR) tablet 20 mg 20 mg oral Nightly Tahmina Charles, REPORTS DEVELOPER 20 mg at 11/30/222038 benztropine (COGENTIN) tablet 1.5 mg 1.5 mg oral Nightly Tahmina Charles, REPORTS DEVELOPER 1.5 mg at 11/30/222037 bisacodyL (DULCOLAX) suppository 10 mg 10 mg rectal Daily PRN Tahmina Charles NP Carrier Fluids for Secondary Infusion - 0.9% Sodium Chloride 30 mL intravenous PRN Tahmina Charles REPORTS DEVELOPER 30 mL at 11/30/22 1658 carvediloL (COREG) tablet 12.5 mg 12.5 mg oral BID with meals (bkfst, dinner) Tahmina Charles NP 12.5 mg at 12/01/22 1717 dextrose (GLUTOSE) 40 % gel 15 g 15 g oral Q15 Min PRN Tahmina Charles NP Or dextrose (D10W) 10% bolus 250 mL 250 mL intravenous Q15 Min PRN Ac, Tahmina L., REPORTS DEVELOPER famotidine (PEPCID) tablet 10 mg 10 mg oral Daily Tahmina Charles, REPORTS DEVELOPER 10 mg at 12/01/22941 furosemide (LASIX) 10 mg/mL injection 40 mg 40 mg intravenous Daily Skip Fabian MD 40 mg at 12/01/22 09 glucagon injection 1 mg 1 mg intramuscular Q30 Min PRN Tahmina Charles, JARAD heparin 5,000 unit/mL injection 5,000 Units 5,000 Units subcutaneous Q8H [facility] Aylin Kauffman MD 5,000 Units at 12/01/221716 insulin lispro (HumaLOG, ADMELOG) 100 unit/mL injection 0-10 Units 0-10 Units subcutaneous TID withmeals Tahmina Charles NP 4 Units at 12/01/221716 insulin lispro (HumaLOG, ADMELOG) 100 unit/mL injection 0-5 Units 0-5 Units subcutaneous Nightly Tahmina Charles, REPORTS DEVELOPER 1 Units at 11/30/22 2100 [Held by Provider] insulin lispro (HumaLOG, ADMELOG) 100 unit/mL injection 7 Units 0.083 Units/kg subcutaneous TID with meals Skip Fabian MD [Held by Provider] losartan (COZAAR) tablet 100 mg 100 mg oral Daily Skip Fabian MD metroNIDAZOLE (FLAGYL) tablet 500 mg 500 mg oral TID Skip Fabian MD 500 mg at 12/01/221716 multivitamin with folic acid 400 mcg tablet 1 tablet 1 tablet oral Daily Skip Fabian MD 1tablet at 12/01/22941 ondansetron ODT (ZOFRAN-ODT) disintegrating tablet 4 mg 4 mg oral Q6H PRN Tahmina Charles, JARAD Or ondansetron (ZOFRAN) injection 4 mg 4 mg intravenous Q6H PRN Tahmina Charles, JARAD polyethylene glycol (MIRALAX) packet 17 g 17 g oral Daily PRN Tahmina Charles, REPORTS DEVELOPER pregabalin (LYRICA) capsule 75 mg 75 mg oral Nightly Tahmina Charles, REPORTS DEVELOPER 75 mg at 11/30/222038 risperiDONE (RisperDAL) tablet 2 mg 2 mg oral Nightly Tahmina Charles, REPORTS DEVELOPER 2 mg at 11/30/222037 sodium chloride (OCEAN) 0.65 % nasal spray 2 spray 2 spray each nostril BID PRN Rick North MD sodium chloride 0.9% flush 0.5-20 mL 0.5-20 mL intra-catheter Q8H SOL Tahmina Charles, REPORTS DEVELOPER 10 mL at12/01/22 1306 sodium chloride 0.9% flush 0.5-20 mL 0.5-20 mL intra-catheter PRN Tahmina Charles NP Vancomycin per Pharmacy 1 mg intravenous PRN Skip Fabian MD No current Epic-ordered outpatient medications on file. Anti-infectives (From admission, onward) Start Dose/Rate Route Frequency Ordered Stop 11/30/22 1630 metroNIDAZOLE (FLAGYL) tablet 500 mg 500 mg oral 3 times daily 11/30/22 1545 11/30/22 1541 Vancomycin per Pharmacy 1 mg 100 mL/hr over 60 Minutes intravenous As needed 11/30/22 1545 Immunosuppressive Medications: Immunosuppressive Medications (From admission, onward) None Active LDAs: PICC Single Lumen 11/11/22 Non-tunneled Power Left Brachial;Upper arm (Active) Site Assessment Clean and dry 12/01/22 1030 Dressing Type CHG Dressing 12/01/22 1030 Dressing Status Clean, dry, intact 12/01/22 1030 Lumen #1 Status Flushes easily;Capped - Disinfectant 12/01/22 1030 Line Necessity Reason Reviewed With Care Team Needed upon discharge for prison use 11/30/22 1500 Number of days: 20 [REMOVED] PICC Single Lumen 01/09/20 Non-tunneled Power [...] Forearm (Removed) Number of days: 4 [REMOVED] Peripheral IV 11/06/22 20 G Anterior;Right Forearm (Removed) Number of days: 3 [REMOVED] Peripheral IV 11/09/22 22 G Anterior;Left Forearm (Removed) Number of days: 0 [REMOVED] Peripheral IV 11/09/22 20 G Anterior;Right Forearm (Removed) Number of days: 4 [REMOVED] External Urinary Catheter (Removed) Number of days: 34 [REMOVED] External Urinary Catheter (Removed) Number of days: 63 [REMOVED] External Urinary Catheter (Removed) Number of days: 3 No Known Allergies Social History Tobacco Use Smoking status: Never Smokeless tobacco: Never Substance and Sexual Activity Drug use: Never Sexual activity: Defer Alcohol Use: Not At Risk (11/30/2022) AUDIT-C Frequency of Alcohol Consumption: Never Average Number of Drinks: Patient does not drink Frequency of Binge Drinking: Never Family History Problem Relation Age of Onset Stomach cancer Father Review of Systems: Review of Systems Constitutional: Negative for fever and weight loss. HENT: Negative for ear pain and hearing loss. Eyes: Negative for blurred vision. Respiratory: Negative for cough and shortness of breath. Cardiovascular: Negative for chest pain and palpitations. Gastrointestinal: Negative for abdominal pain and diarrhea. Genitourinary: Negative for dysuria and hematuria. Musculoskeletal: Negative for joint pain and myalgias. Neurological: Negative for seizures. Endo/Heme/Allergies: Negative for polydipsia. Does not bruise/bleed easily. Psychiatric/Behavioral: Negative for depression. Skin: Right foot 1st digit eschar Objective Vitals: 24hr Min/Max: Temp Min: 36.8 ??C (98.2 ??F) Max: 37.7 ??C (99.9 ??F) Pulse Min: 76 Max: 88 BP Min: 115/62 Max: 163/68 Resp Min: 16 Max: 18 SpO2 Min: 92 % Max: 97 % Most Recent : Vitals: 12/01/22 1621 BP: 149/74 Pulse: 76 Resp: 18 Temp: 36.8 ??C (98.2 ??F) SpO2: 97% I/O last 2 completed shifts: In: 150 [P.O.:150] Out: - No intake/output data recorded. Physical Exam: General: Well appearing, well nourished, in no distress. Oriented x 3, normal mood and affect . Ambulating without difficulty. Skin: Good turgor, no rash, unusual bruising or prominent lesions HEENT: Head: Normocephalic and atraumatic. Eyes: Sclera non-icteric, EOM intact and PERRL Mouth: Mucous membranes moist, no mucosal lesions. Neck: Supple, no adenopathy. Heart: No cardiomegaly or thrills; regular rate and rhythm, no murmur or gallop Lungs: Clear to auscultation and percussion Abdomen: Bowel sounds normal, no tenderness, organomegaly, masses, or hernia Extremities: No edema. peripheral pulses are intact . Right foot 1st digit distal aspect soft tissue necrosis with surrounding minimal soft tissue edema. No drainage or erythema Musculoskeletal: No effusions, intact range of motion. Neurologic: CN 2-12 normal. Sensation to pain, touch. DTRs normal in upper and lower extremities. No pathologic reflexes. Psychiatric: Oriented X3, intact recent and remote memory, judgment and insight, normal mood and affect. Lymph Node: normal Lab/Radiology/Diagnostic Review: WBC 8.9 hemoglobin of 8.2 hematocrit of 25 platelet of 289 segmental of 66% next sodium is 138 potassium of 5.0 chloride of 105 bicarb of 22 BUN 46 creatinine of 2.7 alk phos of 94 AST of 13 ALT of 8 Hemoglobin A1c of 7 point Urinalysis WBC greater than 50 RBCs 6-10 nitrite is negative leukocyte Estrace 4+ X-ray of right foot: First digit tuft cortex bone reabsorption worrisome for osteomyelitis. Assessment and plan: 1. Right foot 1st digit distal aspect necrosis with x-ray worrisome for osteomyelitis. Most likely contiguous infection. Patient is afebrile with a normal white count. Suspect chronic ongoing infection. Podiatry consult pending. Consider arterial lower extremity status as well as MRI feasible. Patient is currently on Flagyl and vancomycin. I will transition to Rocephin and doxycycline. Avoid nephrotoxic agent including vancomycin. 2. Type 2 diabetes with hemoglobin A1c of 7.1 and blood sugars ranging between 128-218. 3. Acute probably on chronic renal failure with creatinine of 2.7. Nephrology following. Avoid nephrotoxic agent. 4. Underlying history of depression with possible schizophrenia. * Rohan Funes MD - 12/01/2022 3:17 PM CDTAssociated Order(s): IP CONSULT TO NEPHROLOGY Nephrology Consult Reason for Consult: acute on chronic kidney not on HD Requesting Provider: Dr Kauffman Subjective Patient is a 72 y.o. female with chief complaint of increasing swelling in her legs. HPI: 72-year-old woman with CKD stage IIIB, follows with Dr. Edwards, presenting with increasing swelling in her legs. She is known to have history of type 2 diabetes since 1997 and more recently hypertension. She is also schizophrenic and has had uncontrolled blood sugars. She was hospitalized at [facility] last month with right great toe osteomyelitis, was discharged on vancomycin, metronidazole and cefepime. She now complains of increasing edema. Serum creatinine, which is at a baseline of 2 usually, is up to 2.7. Vancomycin level was not elevated. She denies any vomiting or diarrhea. She was maintained on an ARB which is currently being held. Past Medical History: Diagnosis Date Arthritis Dementia (HCC) Depression Diabetic neuropathy (HCC) Hyperlipidemia Hypertension Renal disorder Schizophrenia (HCC) Type 2 diabetes mellitus (HCC) Past Surgical History: Procedure Laterality Date SECTION Right right foot TOE AMPUTATION Right 01/06/2020 4th toe amp/ foot debridement/ Dr. Anat Pelayo Medications Prior to Admission Medication Sig Dispense Refill Last Dose amino acids-protein hydr-fiber (Pro-Stat Renal Care) 15-100 gram-kcal/30 mL liquid Take 30 mL by mouth 2 (two) times a day 11/30/2022 amLODIPine (NORVASC) 5 mg tablet Take 1 tablet (5 mg total) by mouth nightly 30 tablet 0 11/29/2022 ascorbic acid 500 mg tablet,chewable Take 1 tablet/chew tab (500 mg total) by mouth 2 (two) times aday 11/30/2022 benztropine (COGENTIN) 1 mg tablet Take 1.5 tablets (1.5 mg total) by mouth nightly 45 tablet 0 11/29/2022 carvediloL (COREG) 12.5 mg tablet Take 1 tablet (12.5 mg total) by mouth 2 (two) times a day with meals 60 tablet 0 11/30/2022 dulaglutide (TRULICITY) 1.5 mg/0.5 mL pen injector Inject 0.5 mL (1.5 mg total) under the skin oncea week on Mondays Past Week famotidine (PEPCID) 10 mg tablet Take 1 tablet (10 mg total) by mouth daily 11/30/2022 furosemide (LASIX) 20 mg tablet Take 1 tablet (20 mg total) by mouth daily 11/30/2022 furosemide (LASIX) 40 mg tablet Take 1 tablet (40 mg total) by mouth daily as needed (Weight Gain >4lbs above dry weight.) 15 tablet 0 Past Week insulin glargine 100 unit/mL (3 mL) pen for injection Inject 25 Units under the skin nightly 11/29/2022 insulin lispro (HumaLOG, ADMELOG) 100 unit/mL pen for injection Inject 12 Units under the skin 3 (three) times a day before meals plus sliding scale 11/30/2022 at 12 units @ 0800 insulin lispro (HumaLOG, ADMELOG) 100 unit/mL pen [...] = 12 units BG >400 = call 11/29/2022 lidocaine (ASPERCREME) 4 % adhesive patch,medicated Place 1 patch on the skin daily to lower back 11/30/2022 losartan (COZAAR) 100 mg tablet Take 1 tablet (100 mg total) by mouth daily 30 tablet 0 11/30/2022 metroNIDAZOLE (FLAGYL) 500 mg tablet Take 1 tablet (500 mg total) by mouth 3 (three) times a day 90tablet 1 11/30/2022 multivitamin with minerals tablet Take 1 tablet by mouth daily 11/30/2022 pregabalin (LYRICA) 150 mg capsule Take 1 capsule (150 mg total) by mouth nightly 30 capsule 0 11/29/2022 risperiDONE (RisperDAL) 2 mg tablet Take 1 tablet (2 mg total) by mouth nightly 30 tablet 0 11/29/2022 Saccharomyces boulardii (FLORASTOR) 250 mg capsule Take 1 capsule (250 mg total) by mouth 2 (two) times a day while receiving antibiotic therapy 11/30/2022 vancomycin IVBP Infuse 200 mL (1 g total) into a venous catheter every other day for cellulitis of right great toe Past Week acetaminophen (TYLENOL) 325 mg tablet Take 2 tablets (650 mg total) by mouth every 6 (six) hours asneeded for pain Unknown albuterol HFA (ProAir HFA) 90 mcg/actuation inhaler Inhale 2 puffs every 4 (four) hours as needed for wheezing or shortness of breath 8.5 g 0 Unknown atorvastatin (LIPITOR) 20 mg tablet Take 1 tablet (20 mg total) by mouth nightly Unknown bisacodyL (DULCOLAX) 10 mg suppository Insert 1 suppository (10 mg total) into the rectum daily as needed for constipation Unknown bisacodyL (FLEET-BISACODYL) 10 mg/30 mL enema Insert 30 mL (10 mg total) into the rectum daily as needed for constipation (if no results 24 hours after suppository) Unknown conner.stocking,thigh,reg,med misc Wear as much as possible 2 each 1 Unknown flash glucose scanning reader ([employer] Madhav 2 Lawrence) misc Use to continually monitor glucose 1 each 0 Unknown flash glucose sensor (FreeStyle Madhav 2 Sensor) kit Use to continually monitor glucose, change every 14 days 6 kit 3 Unknown magnesium citrate solution Take 296 mL by mouth daily as needed (for constipation if no results after enema) Unknown magnesium hydroxide (MILK OF MAGNESIA) suspension 400 mg/5 mL Take 30 mL by mouth nightly as needed(constipation if no bowel movement in 3 days) Unknown polyethylene glycol (MIRALAX) 17 gram packet Take 1 packet (17 g total) by mouth daily as needed for constipation Unknown No Known Allergies Social History Tobacco Use Smoking status: Never Smokeless tobacco: Never Substance and Sexual Activity Drug use: Never Sexual activity: Defer Alcohol Use: Not At Risk (11/30/2022) AUDIT-C Frequency of Alcohol Consumption: Never Average Number of Drinks: Patient does not drink Frequency of Binge Drinking: Never Family History Problem Relation Age of Onset Stomach cancer Father Review of Systems: Constitutional: Negative for appetite [...] weakness and light-headedness. Hematological: Negative. Psychiatric/Behavioral: Negative. Objective Vitals: 24hr Min/Max: Temp Min: 36.9 ??C (98.4 ??F) Max: 37.7 ??C (99.9 ??F) Pulse Min: 79 Max: 88 BP Min: 115/62 Max: 163/68 Resp Min: 16 Max: 18 SpO2 Min: 92 % Max: 94 % Most Recent: Vitals: 12/01/22 0728 BP: 163/68 Pulse: 88 Resp: 18 Temp: 36.9 ??C (98.4 ??F) SpO2: 92% Physical Exam: Constitutional: Appears well-developed and well-nourished. [...] mood and affect. Assessment /Plan Principal Problem: Acute renal failure superimposed on chronic kidney disease, unspecified CKD stage, unspecified acute renal failure type ([facility]) Active Problems: Type 2 diabetes mellitus with diabetic neuropathy, with long-term current use of insulin ([facility]) ([facility]) Gastroesophageal reflux disease Toe necrosis ([facility]) ([facility]) Anemia in stage 4 chronic kidney disease ([facility]) STEFANO on CKD stage IIIB in the setting of osteomyelitis of the toe, hemodynamics appears stable, may have a UTI and will check a postvoid residual. Can not rule out AIN secondary to antibiotic toxicityversus infectious GN, would consider changing vancomycin to alternative agent. Infectious Disease consultation pending. Does have lower extremity edema, echocardiogram pending, would continue cautious diuresis. Holding ARB. Renal function stable today and hopefully to start trending back towards baseline. Repeating labs in a.m.. documented in this encounter Nursing Notes * April Willis RN - 12/04/2022 2:52 PM CDT Per secure chat, podiatry consult for this pt was cancelled. New wound care orders entered for pt'sR 1st toe- daily betadine paint and leave PLANT PACKER. Pt's RN updated. * April Willis RN - 12/01/2022 1:25 PM CDT Wound/Ostomy Service Initial Consult Note Admit Date: 11/30/2022 11:05 AM Today's Date: 12/01/22 Day of Hospital Stay: Hospital Day: 2 Reason for Consult: ulceration R 1st toe Nutrition: Body mass index is 32.25 kg/m??. Diet/Supplement Orders Procedures Adult Diet Restricted; Low Potassium; 2000mL = Diet 1400/Nursing 600 Bedtime snack De Icer Element Winder Consult: No data found Lab Results Component Value Date ALBUMIN 3.3 (L) 12/01/2022 Skin/Wound Assessment: 12/01/22 1100 Wound 11/30/22 Ulceration (non-pressure ulcer) Right;Upper;Other (Comment) Toe (Comment which one) top of right great toe-necrotic harden irreg tissue diabetic foot ulcer-no odor or drainage noted Date First Assessed/Time First Assessed: 11/30/22 1840 Present on Hospital Admission: Yes Wound Type: Ulceration (non-pressure ulcer) Location Orientation: Right;Upper;Other (Comment) Location: Toe (Comment which one) Wound Description (Comments... Wound Status Healing Site Assessment (dry eschar and slough) Yenny-wound Assessment Intact Dressing Open to air Plan of care discussed with: ALIREZA Hoover Condition of Bony Prominences: Heels: WNL Elbows:WNL Coccyx/Buttock:WNL Support Surfaces: Type of Bed: Accumax, waffle ordered Type of Sitting Surface: recommend waffle Prevention in Use: Pressure Relief Boots No, pt able to reposition herself in bed Bordered Foam to sacrum removed- wet with urine. Please apply new one. Moisture Control: Incontinence pad Education: Podiatry will evaluate toe as well Recommendations: Pending podiatry consult, recommend betadine paint Turn and reposition patient approximately every 2 hours. Float heels off of bed with pillows or heel suspension boots. Plan to follow up as needed. Any questions or concerns please contact the Wound/Ostomy department at [phone]. April Willis RN * Angle Falcon RN - 12/01/2022 5:48 AM CDT 0530: Pt drowsy, but easily awaken incont of large amount cloudy yellow urine, complete bed changed, appllied hover mat on pt so can reposition pt better, noted increase in generalized edema 3+ -obviously noted facial edema. Placed pt on daily weight and strict I/O documented in this encounter ED Notes * Mee Dominguez DO - 11/30/2022 12:21 PM CDT HPI Chief Complaint Patient presents with Edema HPI 12:21 PM Sixto Chakraborty is a very pleasant 72 y.o. female presenting to the ED via EMS from [facility] in [place] c/o increased swelling over last several weeks sine at SNF. EMS reports patient previously was on scheduled Lasix but jail had not been giving the patient any Lasix stating it was a p.r.n. order. Daughter reports patient was recently [facility] the [facility] approximately two weeks ago for a toe infection where she currently has a PICC line in his getting unspecified antibiotics and reports SNF unable to adjust lasix. She reports being told pt's BUN was high too. She reports patient used to be on 20 mg of Lasix once a day. Patient unable to provide any reliable history. Daughter reports that the toe has been discolored for the last several months and is concerned for infection. She reports that patient is followed by multiple specialists. She reports she is in rehab for her toe and has a PICC line. Patient denies any shortness of breath, chest pain or fever. She denies any pain in her legs. She reports that her legs have been more swollen. History limited due to patient's unable to call further details of her medical history. PCP: Duane Corcoran MD No Known Allergies Past Medical History: Diagnosis Date Arthritis Dementia (HCC) Depression Diabetic neuropathy (HCC) Hyperlipidemia Hypertension Renal disorder Schizophrenia (HCC) Type 2 diabetes mellitus (HCC) Patient Active Problem List Diagnosis Schizoaffective disorder, [...] Cellulitis of great toe of right foot Acute renal failure superimposed on chronic kidney disease, unspecified CKD stage, unspecified acute renal failure type (HCC) Past Surgical History: Procedure Laterality Date [...] not drink Frequency of Binge Drinking: Never MEDICATIONS GIVEN IN THE ED Medications sodium chloride 0.9% bolus 500 mL (500 mL intravenous New Bag 11/30/22 1251) furosemide (LASIX) 10 mg/mL injection 40 mg (40 mg intravenous Given 11/30/22 125) CURRENT HOME MEDICATIONS Current Facility-Administered Medications: sodium chloride 0.9% bolus 500 mL, 500 mL, intravenous, Once, Mee Dominguez, DO, Last Rate: 500 mL/hr at 11/30/22 1251, 500 mL at 11/30/22 1251 Current Outpatient Medications: albuterol HFA (ProAir HFA) 90 mcg/actuation inhaler, Inhale 2 puffs every 4 (four) hours as needed for wheezing or shortness of breath, Disp: 8.5 g, Rfl: 0 amLODIPine (NORVASC) 5 mg tablet, Take 1 tablet (5 mg total) by mouth nightly, Disp: 30 tablet, Rfl: 0 atorvastatin (LIPITOR) 20 mg tablet, Take 1 tablet (20 mg total) by mouth daily, Disp: 30 tablet, Rfl: 0 BD Arlyn 2nd Gen Pen Needle 32 gauge x needle, USE TO INJECT BASAGLAR EVERY NIGHT AT BEDTIME, Disp: , Rfl: benztropine (COGENTIN) 1 mg tablet, Take 1.5 tablets (1.5 mg total) by mouth nightly, Disp: 45 tablet, Rfl: 0 blood pressure monitor kit, Check BP as instructed, Disp: 1 kit, Rfl: 0 carvediloL (COREG) 12.5 mg tablet, Take 1 tablet (12.5 mg total) by mouth 2 (two) times a day with meals, Disp: 60 tablet, Rfl: 0 conner.stocking,thigh,reg,med misc, Wear as much as possible, Disp: 2 each, Rfl: 1 flash glucose scanning reader (FreeStyle Madhav 2 Lawrence) [facility], Use to continually monitor glucose, Disp: 1 each, Rfl: 0 flash glucose sensor (FreeStyle Madhav 2 Sensor) kit, Use to continually monitor glucose, change every 14 days, Disp: 6 kit, Rfl: 3 furosemide (LASIX) 40 mg tablet, Take 1 tablet (40 mg total) by mouth daily as needed (Weight Gain >4lbs above dry weight.) (Patient taking differently: Take 0.5 tablets (20 mg total) by mouth daily as needed (Weight Gain >4lbs above dry weight.)), Disp: 15 tablet, Rfl: 0 lancets [facility], Check blood sugar up to 3 times a day, Disp: 100 each, Rfl: 3 losartan (COZAAR) 100 mg tablet, Take 1 tablet (100 mg total) by mouth daily, Disp: 30 tablet, Rfl:0 metroNIDAZOLE (FLAGYL) 500 mg tablet, Take 1 tablet (500 mg total) by mouth 3 (three) times a day, Disp: 90 tablet, Rfl: 1 miscellaneous medical supply (Blood Pressure Cuff) [facility], Use to check blood pressure daily, Disp: 1each, Rfl: 1 pregabalin (LYRICA) 150 mg capsule, Take 1 capsule (150 mg total) by mouth nightly, Disp: 30 capsule, Rfl: 0 risperiDONE (RisperDAL) 2 mg tablet, Take 1 tablet (2 mg total) by mouth nightly, Disp: 30 tablet, Rfl: 0 syringe with needle, insulin (INSULIN SYRINGE-NEEDLE U-100 [facility]), 3 times a day, Disp: , Rfl: vancomycin IVBP, Infuse 209 mL (1,045 mg total) into a venous catheter every other day, Disp: 3971 mL, Rfl: 0 Review of Systems Review of Systems All systems reviewed and are neg or non contributory for this patients presentation today other than as stated in the HPI . Physical Exam ED Triage Vitals [11/30/22 1111] Temp Pulse Resp BP SpO2 36.9 ??C (98.4 ??F) 76 17 150/57 98 % Temp src Heart Rate Source Patient Position BP Location FiO2 (%) Oral -- -- -- -- Height Height Method Weight Weight Method 1.575 m (5' 2.01 ) Stated 80 kg (176 lb 5.9 oz) -- Constitutional: alert, awake, very pleasant Head: normocephalic, atraumatic Eyes: EOMI, conjunctival wnl Throat: airway patent Neck: trachea midline Heart: regular rate and rhythm Lungs: clear to auscultation bilaterally, no wheezes or rales Abdomen: soft, nontender Extremities: normal color, 2+ edema, anasarca, right arm resting tremor Neuro/Musculoskeletal: nonfocal motor exam, alert and oriented Physical Exam Procedures [facility] Labs Reviewed CBC WITH AUTO DIFFERENTIAL - Abnormal Result Value WBC 9.9 Hgb 7.9 (*) Hct 25.0 (*) Plt 272 MPV 10.6 RBC 2.61 (*) MCV 95.8 MCH 30.3 MCHC 31.6 (*) RDW CV 15.9 (*) RDW SD 56.4 (*) NRBC abs 0.00 COMPREHENSIVE METABOLIC PANEL - Abnormal Sodium 142 Potassium, pl 4.9 Chloride 110 CO2 23 Anion gap 9 BUN 47 (*) Creatinine 2.70 (*) Glucose 124 Calcium 8.6 Bilirubin, total <0.2 Protein, pl 6.9 Albumin 2.9 (*) Alk phos 96 ALT 9 AST 13 PRO B-TYPE NATRIURETIC PEPTIDE - Abnormal NT-proBNP 361 (*) DIFFERENTIAL AUTO - Abnormal Neutrophil abs 6.6 (*) Imm gran abs 0.0 Lymphocyte abs 2.3 Monocyte abs 0.8 Eosinophil abs 0.2 Basophil abs 0.0 Neutrophil pct 66.6 Imm gran pct 0.2 Lymphocyte pct 23.2 Monocyte pct 8.1 Eosinophil pct 1.6 Basophil pct 0.3 URINALYSIS AND REFLEX TO MICROSCOPIC AND CULTURE EGFR eGFR 18 XR Toe Great Right Minimum 2 Views IMPRESSION: 1. Minimal interval bone reabsorption of the right tip of the tuft 1st digit right foot. Findings worrisome for osteomyelitis. Soft tissue swelling. THIS IS AN ELECTRONICALLY VERIFIED FINAL REPORT 11/30/2022 1:13 PM - Electronically signed by Adryan PAZ T: Report ID: [id number] Reading Location: [id number] XR Chest 1 Vw Portable IMPRESSION: 1. No lobar pneumonia. THIS IS AN ELECTRONICALLY VERIFIED FINAL REPORT 11/30/2022 1:07 PM - Electronically signed by Adryan POWERS T: Report ID: [id number] Reading Location: [id number] EKG interpretation provided by myself in real-time 74 Bpm, NSR, normal intervals, QTc wnl, no acute ST/T wave changes BP 150/57 Pulse 76 Temp 36.9 ??C (98.4 ??F) (Oral) Resp 17 Ht 157.5 cm (5' 2.01 ) Wt 80 kg (176 lb 5.9 oz) SpO2 98% BMI 32.25 kg/m?? MDM Amount and/or Complexity of Data Reviewed Clinical lab tests: reviewed Tests in the radiology section of CPT??: reviewed Decide to obtain previous medical records or to obtain history from someone other than the patient:yes ED Course as of 11/30/22 1338 Time: 11/30 1234 Comment: Pt on cefepime flagyl per dc notes for osteomyelitis of right toe, had refused toe amp pernotes By: Mee Dominguez DO Time: 11/30 1303 Comment: Paged hospitialist and nephrology By: Mee Dominguez DO Time: 12/01 1311 Comment: Spoke with Dr Shelby urbina regarding pt's case who agrees to consult By: Mee Dominguez DO Time: 11/30 131 Comment: Discussed all test results including patient's imaging results in detail including all abnormal findings and plan for admission with the pt. Patient agreeable to plan. Spoke with Dr. Fabian, hospitalist regarding patient's case who accepted the patient for admission. Anticipate greater than 2 midnight stay. Daughter requesting wound care consult By: Mee Dominguez DO Clinical Impression: Acute renal failure superimposed on chronic kidney disease, unspecified CKD stage, unspecified acute renal failure type (HCC) Edema, unspecified type Hypertension, unspecified type Chronic osteomyelitis (CMS/HCC) (HCC) This examination was transcribed using the [employer] voice recognition system without human computer clerk. In an effort to expedite patient care, this report has not been adjusted for typographical, grammatical, and syntax by a trained medical advisor. Mee Dominguez DO 11/30/22 1337 * Cesar Coughlin, RN - 11/30/2022 11:06 AM CDT Pt to ED from [facility] in [place] for C/O increased generalized edema. Per EMS, ptslasix changed from scheduled to PRN on 11/13. Family informed staff of need for daily medicaiton. MDrestarted daily at 20mg instead of 40mg as previously ordered on 11/28. No c/o CP, SOB, N/V/D. documented in this encounter Miscellaneous Notes * Provider Query - Jad Mead MD - 12/05/2022 9:50 PM CDT THIS IS A VALIDATION QUERY - ADDITIONAL CLINICAL INFORMATION NEEDED Based on the [facility] approved criteria for heart failure (see below), verify if the documented diagnosis is still accurate. ___ Acute on Chronic Diastolic CHF exacerbation ruled out __X_ Acute on Chronic Diastolic CHF exacerbation present and treated, document detailed rationale and clinical impression in provider response below ___ Chronic Diastolic CHF only ___ History of heart failure only ___ Other, specify below Additional Provider Response: Clinical Indicators/Treatments: 72 yr old female presents to the ER with generalized edema. Scheduled lasix had been reduced. Pt. found to have acute on chronic renal failure Attending notes acute on chronic diastolic CHF exacerbation POA CXR 11/30 Heart size is normal.No pneumothorax.Increased markings over the lower lung cavanaugh due to overlying soft tissue.No eleazar findings of lobar pneumonia.No pulmonary edema.Some flattening of the diaphragms. ProBNP 361 Received IV lasix CHF Diagnostic Criteria CHF The commonly used [place] Diagnostic Criteria for Heart Failure requires the presence of 2 major criteria or 1 major and 2 minor criteria to make the diagnosis of heart failure. [place] Criteria MAJOR CRITERIA MINOR CRITERIA Acute Pulmonary Edema Ankle Edema Cardiomegaly Dyspnea on Exertion Hepatojugular Reflux Hepatomegaly Neck Vein Distention Nocturnal Cough Paroxysmal Nocturnal Dyspnea/ Orthopnea Pleural Effusion Tachycardia: HR >120 bpm This diagnostic tool is highly sensitive [...] ventricular heart failure Rheumatic heart failure CHF References Heart failure: Clinical manifestations and diagnosis in adults - UpToDate The epidemiology of congestive heart failure: the [place] Heart Study perspective - [facility] (nih.gov) Congestive Heart Failure - StatPearls - [facility] (nih.gov) Acute Heart Failure: Definition, Classification and Epidemiology - [facility] (nih.gov) Use of terms such as likely, suspected, possible, or probable (associated with a specific diagnosisthat is being evaluated, monitored, or treated as if it exists) are acceptable and can be coded in the inpatient setting when documented at the time of discharge. This documentation will become part of the patient's medical record. Sincerely, Sarahy Luis RN, CCDS * Plan of Care - Hemalatha Marinelli - 12/05/2022 6:02 PM CDT Problem: Health Behavior: Goal: Understanding of discharge needs will improve Outcome: Progressing Goals: Clinical Goals for the Shift: diuresis, nephrology consult, wound care consult, IV abx Summary: * Plan of Care - Lorie Voss - 12/05/2022 2:10 PM CDT HOME INFUSION PLAN Plan for discharge! TODAY Pt will need to have Ceftriaxone today before discharge. Meds will be delivered to patient s home. [facility] Home Infusion will be providing meds. [facility] Home Health will be providing Long-Term. SOC 12/06 Discharge orders received and forwarded to [facility] Infusion and [facility] Home Health Lorie/Dayanara Voss, combination building inspectorLvn Home Health, [facility] home care [phone] * Plan of Care - Dustin Duvall RN - 12/05/2022 4:47 AM CDT Problem: Health Behavior: Goal: Understanding of discharge [...] improve to fullest extent possible Outcome: Progressing Goals: Clinical Goals for the Shift: diuresis, nephrology consult, wound care consult, IV abx * Plan of Care - Dulce Cowan RN - 12/04/2022 6:43 PM CDT Problem: Safety: Goal: Will remain free from falls Outcome: Progressing Goals: Clinical Goals for the Shift: diuresis, nephrology consult, wound care consult, IV abx Summary: Plan is for patient to discharge to home with daughter, Ursula. Patient will have home infusions for osteomyelitis. Ursula expressed concerns over patient's BUN and creatinine levels, and is hoping for more information. ROSEANN PICC maintained. * Plan of Care - Spring Ernst RN - 12/04/2022 5:08 AM CDT Goals: Clinical Goals for the Shift: diuresis, nephrology consult, wound care consult, IV abx Summary: Patient is for discharge today to LTC * Plan of Care - Spring Ernst RN - 12/04/2022 12:37 AM CDT Goals: Clinical Goals for the Shift: diuresis, nephrology consult, wound care consult, IV abx Summary: Problem: Health Behavior: Goal: Understanding of [...] Outcome: Progressing * Plan of Care - Rosa Sorensen RN - 12/03/2022 11:15 AM CDT Care Management Weekly Progression of Care Review Pt originally admitted for Chronic osteomyelitis (CMS/HCC) (HCC) [M86.60] Edema, unspecified type [R60.9] Acute renal failure superimposed on chronic kidney disease, unspecified CKD stage, unspecified acute renal failure type (HCC) [N17.9, N18.9] Hypertension, unspecified type [I10] PCP: Duane Corcoran MD Current Plan of Care Includes: Originally admitted for R foot wound. R 1st digit suggestive osteo. Patient and POA hesitant for surgical intervention at this time. Planning long-term antibiotics withRocephin 2 g daily and p.o. doxycycline for 6 weeks per ID recs. Nephrology also still following for STEFANO- AM labs pending. D/C Plans; Home with daughter and [facility] and infusion, pt has been accepted [facility] running med for copay Rosa Sorensen RN 12/03/2022 11:15 AM * Plan of Care - Mi Pardo RN - 12/03/2022 9:03 AM CDT Problem: Health Behavior: Goal: Understanding of discharge [...] improve to fullest extent possible Outcome: Progressing Goals: Clinical Goals for the Shift: diuresis, nephrology consult, wound care consult, IV abx Summary: Patient oriented to self only. She tolerates eating/meds PO well. She states she feel goodthis AM. Patient is on alarms and occasionally tries to get up without help. She is re- educated each time and placed back on alarm. Will continue to monitor. * Plan of Care - Spring Ernst RN - 12/03/2022 2:45 AM CDT Goals: Clinical Goals for the Shift: diuresis, nephrology consult, wound care consult, IV abx Summary: Problem: Health Behavior: Goal: Understanding of [...] Outcome: Progressing * Plan of Care - Lorie Voss - 12/02/2022 2:44 PM CDT Spoke with patient's daughter, Areli, and had discussion re; home infusion patient/caregiver responsibilities. Areli verbalizes understanding and agreeable to learning home infusion. Teaching video information sent. Waiting final recommendations. [facility] has accepted patient. I will now obtain Home Health for nursing. Lorie/Dayanara Voss RN [facility], [facility] home care [phone] * Plan of Care - Lorie Voss - 12/02/2022 2:40 PM CDT Infusion referral received. Will need to assess patient and/or family for home infusion appropriateness, verify benefits for home infusion, and educate patient/family on home infusion process. Referrals are processed between 8am - 4:30pm Thursday - Thursday. For after hour emergencies please call [phone]. Any referrals received after 4pm will be processed the next day. For discharge planning purposes please keep in mind that referrals can take 24 or more hours to process. Thank You Lorie/Dayanara Voss combination building inspectorLvn Home Health, [facility] home care [phone] * Plan of Care - Anthony Lucas RN - 12/02/2022 1:51 PM CDT Goals: patient to use call light safely and effectively, evaluation completed by podiatry, improvedmobility with PT/OT. Problem: Health Behavior: Goal: Understanding of discharge [...] Outcome: Progressing * Plan of Care - Spring Ernst RN - 12/02/2022 2:48 AM CDT Goals: Clinical Goals for the Shift: diuresis, nephrology consult, wound care consult, IV abx Summary: Problem: Health Behavior: Goal: Understanding of [...] to fullest extent possible Outcome: Progressing * Initial Assessments - Judie Cheema MSW - 12/01/2022 11:25 AM CDT IP Social Work Assessment Social History: Prior to admission the patient was at [facility] for SNF to finish out IV antibiotics. Home DME: Wheeled Walker and Wheelchair Impressions: BONDING AGENT spoke with patient's daughter, Areli, over the phone to discuss dc planning. Patient was A&Ox 1, pleasant, and cooperative. Patient will likely benefit from Long-Term Facilities at d/c. Patient/family are possibly agreeable to plan. Based on a comprehensive family assessment, assistance with instrumental activities of daily livingafter discharge will be provided by family or facility staff. Through the course of our work I determined that, patient does not possess the skill and ability toprovide and monitor care and will require additional assistance.Patient's family does not have has the capacity to provide/monitor/arrange for the care of the patient. Finally, we determined that patient's family has the knowledge of available resources and that combining them with their existing resources will suffice and sustain care at discharge. The treatment team is aware of this information. All are in agreement with the aftercare plan. Problem: Patient identified for social work consult due to discharge planning . Sixto Chakraborty would benefit from continued therapy services at d/c. PT/OT to evaluate and treat patient. Patient identified for SW consult due to high readmission score (43%) and readmission within last 30 days. Goal: Social work will work with Sixto Chakraborty and family for discharge planning needs.Social workassess for possible complex discharge concerns. Provide resources and education to help reduce readmission and improve prison health. Social Work Plan: Patient's daughter likely wants to take patient home with home health and infusion. Patient's daughter agreeable to additional SNF referrals being sent out in the [facility]. Additional Information: Patient's daughter stated that she was not happy with the care given to patient at [facility], but believes the care will be about the same at other facilities, so patient's daughter likely to take patient home at discharge with home health and infusion. BONDING AGENT sent bulk of SNF referrals in case via [facility]. BONDING AGENT and CM to follow up regarding discharge plans later this week. Primary Care Provider: Duane Corcoran MD Assessment: Prior to Admission Support System: Children, Family members Home Care Services: Yes Type of Home Care Services: Home infusion, Home therapies, Nurse visit Potential Discharge Needs Patient expects to be discharged to:: Private residence (12/01/22 1123) Social Determinates of Health: Transportation Needs: No Transportation Needs (11/30/2022) PRAPARE - Transportation Lack of Transportation (Medical): No Lack of Transportation (Non-Medical): No Social Connections: Moderately Isolated (11/30/2022) Social Connection and Isolation Panel [NHANES] Frequency of Communication with Friends and Family: More than three times a week Frequency of Social Gatherings with Friends and Family: More than three times a week Attends Sabianism Services: More than 4 times per year Active Member of Clubs or Organizations: No Attends Club or Organization Meetings: Never Marital Status: Food Insecurity: No Food Insecurity (11/11/2022) Hunger Vital Sign Worried About Running Out of Food in the Last Year: Never true Ran Out of Food in the Last Year: Never true Housing Stability: Low Risk (11/30/2022) Housing Stability Vital Sign Unable to Pay for Housing in the Last Year: No Number of Places Lived in the Last Year: 1 Unstable Housing in the Last Year: No Financial Resource Strain: Low Risk (11/30/2022) Overall Financial Resource Strain (CARDIA) Difficulty of Paying Living Expenses: Not hard at all PASRR Completed Assessment ID: Questions encouraged and answered. Will continue to follow progression of care and monitor for further discharge needs. 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) Code Status: FULL Ht: 157.5 cm (5' 2.01 ) Wt: 80 kg (176 lb 5.9 oz) Admission Cmt: None Principal Problem: Acute renal failure superimposed on chronic kidney disease, unspecified CKD stage, unspecified acute renal failure type (HCC) [N17.9,N18.9] Elopement Risk Date/Time Risk/Reason for Elopement User 11/30/22 1118 No risk SNK Intake/Output 11/30/22 0700 - 12/01/22 0659 [id number] [id number] Total Intake (ml) -- 150 -- 150 Output (ml) -- -- -- -- Net (ml) -- 150 -- 150 Last Weight 80 kg (176 lb 5.9 oz) 80 kg (176 lb 5.9 oz) -- -- Patient Lines/Drains/Airways Status Active Airway / Central venous catheter / Drain / Epidural cathether / Intraosseous line / Peripherally inserted central catheter / Peripheral intravenous line / Arterial line Name Placement date Placement time Site Days PICC Single Lumen 11/11/22 Non-tunneled Power Left Brachial;Upper arm 11/11/22 1310 Brachial;Upper arm 19 Active Wound Assessment Active Wound / Pressure ulcer / Morgan / Negative Pressure Wound / Incision Wound 11/30/22 Ulceration (non-pressure ulcer) Right;Upper;Other (Comment) Toe (Comment which one) top of right great toe-necrotic harden irreg tissue diabetic foot ulcer-no odor or drainage noted Date First Assessed 11/30/22 Site Toe (Comment which one) Time First Assessed 1840 Days less than 1 Present on Hospital Admission: Yes Wound Type: Ulceration (non-pressure ulcer) Location Orientation: Right;Upper;Other (Comment) Wound Description (Comments): top of right great toe-necrotic harden irreg tissue diabetic foot ulcer-no odor or drainage noted Ayers Fall Risk Flowsheet Row Most Recent Value Prior Fall Event (Autopopulated from EMR) None found ............filed at 12/01/2022 1000 History of Falling 0 ............filed at 12/01/2022 1000 Secondary Diagnosis 15 ............filed at 12/01/2022 1000 Ambulatory Aids 15 ............filed at 12/01/2022 1000 Intravenous Therapy/Heparin/Saline Lock 20 ............filed at 12/01/2022 1000 Gait/Transferring 10 ............filed at 12/01/2022 1000 Mental Status 15 ............filed at 12/01/2022 1000 Ayers Fall Risk Score 75 ............filed at 12/01/2022 1000 Vital Signs 11/30 0700 12/01 0659 12/01 0700 12/01 1115 Most Recent Temp (??C) 36.8 - 37.7 36.9 36.9 (98.4) 12/02 727 Pulse 76 - 82 88 88 12/02 727 Resp 15 - 18 18 18 12/02 727 SpO2 (%) 93 - 98 92 92 12/02 727 BP 115/62 - 150/57 163/68 163/68 12/01 0628 MAP (mmHg) 73 - 90 100 100 12/02 727 Default Flowsheet Data (most recent) Endurance Tests No documentation. Nursing Nutrition None Nursing Mobility Activity 12/01 0600 Resting in bed;Sleeping 12/01 0540 Resting in bed;Sleeping 12/01 0500 Resting in bed;Sleeping 12/01 0401 Resting in bed;Sleeping 12/01 0300 Resting in bed;Sleeping 12/01 0200 Resting in bed;Sleeping 12/01 0104 Resting in bed;Sleeping 12/01 0000 Resting in bed;Sleeping 11/30 2300 Resting in bed;Sleeping 11/30 2200 Resting in bed;Sleeping 11/30 2100 Resting in bed 11/30 203 Resting in bed 11/30 2000 Resting in bed;Sleeping 11/30 1902 Resting in bed;Sleeping 11/30 1859 Resting in bed;Being fed 11/30 1724 Dangle 11/30 1500 Turn Repositioned 12/01 0600 Right side 12/01 0540 Left side 12/01 0500 Left side 12/01 0401 Turns self 12/01 0300 Right side 12/01 0200 Turns self 12/01 0104 Left side 12/01 0000 Turns self 11/30 2300 Turns self;Left side 11/30 2200 Turns self 11/30 2100 Left side 11/30 203 Left side 11/30 2000 Turns self 11/30 1902 Supine 11/30 1859 Supine 11/30 1500 Right side Positioning Frequency 12/01 1000 Every 2 hours 12/01 0600 Every 2 hours 12/01 0540 Every 2 hours 12/01 0500 Every 2 hours 12/01 0401 Able to turn self 12/01 0300 Every 2 hours 12/01 0200 Able to turn self 12/01 0104 Every 2 hours 12/01 0000 Able to turn self 11/30 2300 Every 2 hours 11/30 2200 Able to turn self 11/30 2100 Every 2 hours 11/30 2035 Every 2 hours 11/30 2000 Able to turn self 11/30 1902 Every 2 hours 11/30 1859 Every 2 hours 11/30 1500 Every 2 hours Head of Bed Elevated 12/01 0600 HOB 30 12/01 0540 HOB 30 12/01 0500 HOB less than 20 12/01 0401 HOB less than 20 12/01 0300 HOB less than 20 12/01 0200 HOB less than 20 12/01 0104 HOB less than 20 12/01 0000 HOB less than 20 11/30 2300 HOB less than 20 11/30 2200 HOB less than 20 11/30 2100 HOB less than 20 11/30 2035 HOB 30 11/30 2000 HOB less than 20 11/30 1902 HOB 30 11/30 1859 HOB 30 11/30 1500 HOB less than 20 Heels/Feet 12/01 0600 Heels elevated off bed 12/01 0540 Heels elevated off bed 12/01 0500 Heels elevated off bed 12/01 0401 Heels elevated off bed 12/01 0300 Heels elevated off bed 12/01 0200 Heels elevated off bed 12/01 0104 Heels elevated off bed 12/01 0000 Heels elevated off bed 11/30 2300 Heels elevated off bed 11/30 2200 Heels elevated off bed 11/30 2035 Heels elevated off bed 11/30 2000 Heels elevated off bed 11/30 1902 Heels elevated off bed 11/30 1859 Heels elevated off bed , Meds and Admin Active Only All Meds/Most Recent Administrations All Meds/Most Recent Administrations sodium chloride 0.9% bolus 500 mL [[id number]] Ordering Provider: Mee Dominguez DO Status: Completed (Past End Date/Time) Ordered On: 11/30/22 1234 Starts/Ends: 11/30/22 1235 - 11/30/22 1351 Ordered Dose (Remaining/Total): 500 mL (0/1) Route: intravenous Frequency: Once Ordered Rate/Order Duration: 500 mL/hr / 1 Hours Line Med Link Info Comment PICC Single Lumen 11/11/22 Non-tunneled Power Left Brachial;Upper arm 11/30/22 1250 by Cesar Coughlin, RN -- Timestamps Action Dose / Rate / Duration Route Other Information 11/30/22 1251 New Bag 500 mL 500 mL/hr 1 Hours intravenous Performed by: Cesar Coughlin RN Scanned Package: [id number] furosemide (LASIX) 10 mg/mL injection 40 mg [[id number]] Ordering Provider: Mee Dominguez DO Status: Completed (Past End Date/Time) Ordered On: 11/30/22 1235 Starts/Ends: 11/30/22 1236 - 11/30/22 1251 Ordered Dose (Remaining/Total): 40 mg (0/1) Route: intravenous Frequency: Once Ordered Rate/Order Duration: -- / -- Admin Instructions: For IV push: administer doses < 160 mg at a rate of 20 -40 mg/min. Doses >/= 160 mg should be administered no faster than 4 mg/min. Room temperature only Line Med Link Info Comment PICC Single Lumen 11/11/22 Non-tunneled Power Left Brachial;Upper arm 11/30/22 1250 by Cesar Coughlin RN -- Timestamps Action Dose Route Other Information 11/30/22 125 Given 40 mg intravenous Performed by: Cesar Coughlin RN Scanned Package: [id number] sodium chloride 0.9% flush 0.5-20 mL [[id number]] Ordering Provider: Tahmina Charles NP Status: Verified Ordered On: 11/30/221622 Start: 11/30/22 1700 Ordered Dose (Remaining/Total): 0.5-20 mL (--/--) Route: intra-catheter Frequency: Every 8 hours scheduled Ordered Rate/Order Duration: -- / -- Admin Instructions: Flush volume based on line type and size. Timestamps Action Dose Route Other Information 12/01/22 0540 Given 10 mL intra-catheter Performed by: Angle Falcon RN Scanned Package: [id number] sodium chloride 0.9% flush 0.5-20 mL [[id number]] Ordering Provider: Tahmina Charles NP Status: Verified Ordered On: 11/30/221622 Start: 11/30/221622 Ordered Dose (Remaining/Total): 0.5-20 mL (--/--) Route: intra-catheter Frequency: As needed Ordered Rate/Order Duration: -- / -- Admin Instructions: Flush volume based on line type and size. Flush before and after each use. (No admins scheduled or recorded for this medication) Carrier Fluids for Secondary Infusion - 0.9% Sodium Chloride [[id number]] Ordering Provider: Tahmina Charles NP Status: Dispensed Ordered On: 11/30/221622 Start: 11/30/221622 Ordered Dose (Remaining/Total): 30 mL (--/--) Route: intravenous Frequency: As needed Ordered Rate/Order Duration: -- / -- Admin Instructions: 0-250 ml/hr to flush line after IV infusions when no maintenance IV ordered. Infuse 30mL at the same rate as the secondary infusion. Run as primary IV, not intended for KVO. Timestamps Action Dose Route Other Information 11/30/221657 Given 30 mL intravenous Performed by: Dulce Cowan RN Scanned Package: [id number] ondansetron ODT (ZOFRAN-ODT) disintegrating tablet 4 mg [[id number]] Ordering Provider: Tahmina Charles NP Status: Verified Ordered On: 11/30/221622 Start: 11/30/221622 Ordered Dose (Remaining/Total): 4 mg (--/--) Route: oral Frequency: Every 6 hours PRN Ordered Rate/Order Duration: -- / -- (No admins scheduled or recorded for this medication) ondansetron (ZOFRAN) injection 4 mg [[id number]] Ordering Provider: Tahmina Charles NP Status: Verified Ordered On: 11/30/221622 Start: 11/30/221622 Ordered Dose (Remaining/Total): 4 mg (--/--) Route: intravenous Frequency: Every 6 hours PRN Ordered Rate/Order Duration: -- / 2 Minutes (No admins scheduled or recorded for this medication) dextrose (GLUTOSE) 40 % gel 15 g [[id number]] Ordering Provider: Tahmina Charles NP Status: Verified Ordered On: 11/30/221622 Start: 11/30/221622 Ordered Dose (Remaining/Total): 15 g (--/--) Route: [...] Call MD for each episode of hypoglycemia. APPELLATE COURT CLERK STATES GLUTOSE-15 CONTAINS GLUCOSE 40% W/W (50% W/V) (No admins scheduled or recorded for this medication) dextrose (D10W) 10% bolus 250 mL [[id number]] Ordering Provider: Tahmina Charles REPORTS DEVELOPER Status: Verified Ordered On: 11/30/221622 Start: 11/30/221622 Ordered Dose (Remaining/Total): 250 mL (--/--) Route: intravenous Frequency: Every 15 min PRN Ordered Rate/Order Duration: 1,000 mL/hr / 15 Minutes Admin Instructions: After treatment for hypoglycemia, recheck BG followed by treatment every 15 minutes until the BG is greater than 100 mg/dL. Then check BG 1 hour post treatment. If BG is less [id number] mg/dL, repeat Q15 minute BG checks and treatment. Call MD for each episode of hypoglycemia. (No admins scheduled or recorded for this medication) glucagon injection 1 mg [[id number]] Ordering Provider: Tahmina Charles REPORTS DEVELOPER Status: Verified Ordered On: 11/30/221622 Start: 11/30/221622 Ordered Dose (Remaining/Total): 1 mg (--/--) Route: [...] (HumaLOG, ADMELOG) 100 unit/mL injection 7 Units [[id number]] Held by Provider since 11/30/2022 at 1622 by Dulce Cowan RN.Hold Reason: OtherHold Comments: Hold pending PO status Ordering Provider: Skip Fabian MD Status: Verified Ordered On: 11/30/221621 Start: 11/30/22 1800 Ordered Dose (Remaining/Total): 0.083 Units/kg (--/--) [...] or if BG less than 70 mg/dL. (No admins scheduled or recorded for this medication) insulin lispro (HumaLOG, ADMELOG) 100 unit/mL injection 0-10 Units [[id number]] Ordering Provider: Tahmina Charles NP Status: Verified Ordered On: 11/30/221622 Start: 11/30/22 1800 Ordered Dose (Remaining/Total): 0-10 Units (--/--) [...] orders. Do NOT hold for NPO Status (No admins scheduled or recorded for this medication) insulin lispro (HumaLOG, ADMELOG) 100 unit/mL injection 0-5 Units [[id number]] Ordering Provider: Tahmina Charles NP Status: Dispensed Ordered On: 11/30/221622 Start: 11/30/222099 Ordered Dose (Remaining/Total): 0-5 Units (--/--) Route: [...] Action Dose Route / Site Other Information 11/30/222099 Given 1 Units subcutaneous Left Upper Arm Performed by: Angle Falcon RN Scanned Package: [id number] albuterol HFA (PROVENTIL HFA,VENTOLIN HFA,PROAIR HFA) 90 mcg/actuation inhaler 2 puff [[id number]] Ordering Provider: Tahmina Charles NP Status: Verified Ordered On: 11/30/221622 Start: 11/30/221624 Ordered Dose (Remaining/Total): 2 puff (--/--) Route: inhalation Frequency: Every 4 hours PRN (emergency response technician) Ordered Rate/Order Duration: -- / -- (No admins scheduled or recorded for this medication) amLODIPine (NORVASC) tablet 5 mg [[id number]] Ordering Provider: Tahmina Charles NP Status: Dispensed Ordered On: 11/30/221622 Start: 11/30/222099 Ordered Dose (Remaining/Total): 5 mg (--/--) Route: oral Frequency: Nightly Ordered Rate/Order Duration: -- / -- Timestamps Action Dose Route Other Information 11/30/222038 Given 5 mg oral Performed by: Angle Falcon RN Scanned Package: [id number] atorvastatin (LIPITOR) tablet 20 mg [[id number]] Ordering Provider: Tahmina Charles NP Status: Dispensed Ordered On: 11/30/221622 Start: 11/30/222099 Ordered Dose (Remaining/Total): 20 mg (--/--) Route: oral Frequency: Nightly Ordered Rate/Order Duration: -- / -- Timestamps Action Dose Route Other Information 11/30/222038 Given 20 mg oral Performed by: Angle Falcon RN Scanned Package: 53184-972-06, 32867-591-30 benztropine (COGENTIN) tablet 1.5 mg [[id number]] Ordering Provider: Tahmina Charles NP Status: Dispensed Ordered On: 11/30/221622 Start: 11/30/22 2100 Ordered Dose (Remaining/Total): 1.5 mg (--/--) Route: oral Frequency: Nightly Ordered Rate/Order Duration: -- / -- Timestamps Action Dose Route Other Information 11/30/222037 Given 1.5 mg oral Performed by: Angle Falcon RN Scanned Package: 91461-735-64, 35219-982-32 bisacodyL (DULCOLAX) suppository 10 mg [[id number]] Ordering Provider: Tahmina Charles NP Status: Verified Ordered On: 11/30/221622 Start: 11/30/221622 Ordered Dose (Remaining/Total): 10 mg (--/--) Route: rectal Frequency: Daily PRN Ordered Rate/Order Duration: -- / -- (No admins scheduled or recorded for this medication) carvediloL (COREG) tablet 12.5 mg [[id number]] Ordering Provider: Tahmina Charles NP Status: Dispensed Ordered On: 11/30/221622 Start: 11/30/22 1800 Ordered Dose (Remaining/Total): 12.5 mg (--/--) Route: oral Frequency: 2 times daily with meals (bkfst, dinner) Ordered Rate/Order Duration: -- / -- Timestamps Action Dose Route Other Information 12/01/22 0942 Given 12.5 mg oral Performed by: Kiko Nicole RN Scanned Package: 7560-2628-14 famotidine (PEPCID) tablet 10 mg [[id number]] Ordering Provider: Tahmina Charles NP Status: Dispensed Ordered On: 11/30/221622 Start: 12/01/22899 Ordered Dose (Remaining/Total): 10 mg (--/--) Route: oral Frequency: Daily Ordered Rate/Order Duration: -- / -- Timestamps Action Dose Route Other Information 12/01/22941 Given 10 mg oral Performed by: Kiko Nicole RN Scanned Package: 10224-088-71 losartan (COZAAR) tablet 100 mg [[id number]] Held by Provider since 11/30/2022 at 1622 by Dulce Cowan RN.Hold Reason: OtherHold Comments: Hold pending nephrology Ordering Provider: Skip Fabian MD Status: Verified Ordered On: 11/30/221621 Start: 12/01/22899 Ordered Dose (Remaining/Total): 100 mg (--/--) Route: oral Frequency: Daily Ordered Rate/Order Duration: -- / -- (No admins scheduled or recorded for this medication) polyethylene glycol (MIRALAX) packet 17 g [[id number]] Ordering Provider: Tahmina Charles NP Status: Verified Ordered On: 11/30/221622 Start: 11/30/221622 Ordered Dose (Remaining/Total): 17 g (--/--) Route: oral Frequency: Daily PRN Ordered Rate/Order Duration: -- / -- (No admins scheduled or recorded for this medication) pregabalin (LYRICA) capsule 75 mg [[id number]] Ordering Provider: Tahmina Charles NP Status: Dispensed Ordered On: 11/30/221622 Start: 11/30/222099 Ordered Dose (Remaining/Total): 75 mg (--/--) Route: oral Frequency: Nightly Ordered Rate/Order Duration: -- / -- Timestamps Action Dose Route Other Information 11/30/222038 Given 75 mg oral Performed by: Angle Falcon RN Scanned Package: 95098-817-90, 46709-504-82, 48651-528-93 risperiDONE (RisperDAL) tablet 2 mg [[id number]] Ordering Provider: Tahmina Charles NP Status: Dispensed Ordered On: 11/30/221622 Start: 11/30/22 2100 Ordered Dose (Remaining/Total): 2 mg (--/--) Route: oral Frequency: Nightly Ordered Rate/Order Duration: -- / -- Timestamps Action Dose Route Other Information 11/30/222037 Given 2 mg oral Performed by: Angle Falcon RN Scanned Package: 5553-5565-93, 0925-0949-61 albumin 25 % bottle 25 g [[id number]] Ordering Provider: Tahmina Charles NP Status: Completed (Past End Date/Time) Ordered On: 11/30/221622 Starts/Ends: 11/30/22 1800 - 11/30/221831 Ordered Dose (Remaining/Total): 25 g (0) Route: intravenous Frequency: Once Ordered Rate/Order Duration: -- / -- Admin Instructions: Infusion rate depends on indication and clinical situation. Suggested initialrate - 60 mL/hr. In patients with normal plasma volume, do not exceed 1 mL/minute. Timestamps Action Dose Route Other Information 11/30/221831 New Bag 25 g intravenous Performed by: Dulce Cowan RN Scanned Package: 23268-087-22 furosemide (LASIX) 10 mg/mL injection 40 mg [[id number]] Ordering Provider: Skip Fabian MD Status: Dispensed Ordered On: 11/30/22 154 Start: 12/01/22 0900 Ordered Dose (Remaining/Total): 40 mg (--/--) Route: intravenous Frequency: Daily Ordered Rate/Order Duration: -- / -- Admin Instructions: For IV push: administer doses < 160 mg at a rate of 20 -40 mg/min. Doses >/= 160 mg should be administered no faster than 4 mg/min. Room temperature only Line Med Link Info Comment PICC Single Lumen 11/11/22 Non-tunneled Power Left Brachial;Upper arm 12/01/22942 by Kiko Nicole RN -- Timestamps Action Dose Route Other Information 12/01/22942 Given 40 mg intravenous Performed by: Kkio Nicole RN Scanned Package: 57526-292-12 Vancomycin per Pharmacy [[id number]] Ordering Provider: Skip Fabian MD Status: Verified Ordered On: 11/30/221544 Start: 11/30/22 154 Ordered Dose (Remaining/Total): 1 mg (--/--) Route: intravenous Frequency: As needed Ordered Rate/Order Duration: 100 mL/hr / 60 Minutes Admin Instructions: FOR INFORMATIONAL PURPOSES ONLY--DO NOT ADMINISTER FROM THIS ORDER (No admins scheduled or recorded for this medication) metroNIDAZOLE (FLAGYL) tablet 500 mg [[id number]] Ordering Provider: Skip Fabian MD Status: Dispensed Ordered On: 11/30/22 154 Start: 11/30/22 163 Ordered Dose (Remaining/Total): 500 mg (--/--) Route: oral Frequency: 3 times daily Ordered Rate/Order Duration: -- / -- Timestamps Action Dose Route Other Information 12/01/22 0942 Given 500 mg oral Performed by: Kiko Nicole RN Scanned Package: 26925-439-71 multivitamin with folic acid 400 mcg tablet 1 tablet [[id number]] Ordering Provider: Skip Fabian MD Status: Dispensed Ordered On: 11/30/221626 Start: 11/30/22 170 Ordered Dose (Remaining/Total): 1 tablet (--/--) Route: oral Frequency: Daily Ordered Rate/Order Duration: -- / -- Admin Instructions: Sub for ascorbic acid Timestamps Action Dose Route Other Information 12/01/22 0942 Given 1 tablet oral Performed by: Kiko Nicole RN Scanned Package: [id number] vancomycin 1,000 mg/250 mL in sodium chloride 0.9% (premix) 1,000 mg [[id number]] Ordering Provider: Skip Fabian MD Status: Completed (Past End Date/Time) Ordered On: 11/30/22 163 Starts/Ends: 11/30/221714 - 11/30/22 182 Ordered Dose (Remaining/Total): 1,000 mg (0/1) Route: intravenous Frequency: Once Ordered Rate/Order Duration: -- / 60 Minutes Timestamps Action Dose / Duration Route Other Information 11/30/22 172 New Bag 1,000 mg 60 Minutes intravenous Performed by: Dulce Cowan RN Scanned Package: 31306-121-08, 4476-0631-93 enoxaparin (LOVENOX) syringe 30 mg [[id number]] Ordering Provider: Skip Fabian MD Status: Dispensed Ordered On: 11/30/22 1725 Start: 11/30/222099 Ordered Dose (Remaining/Total): 30 mg (--/--) Route: subcutaneous Frequency: Daily (for enoxaparin) Ordered Rate/Order Duration: -- / -- Timestamps Action Dose Route / Site Other Information 11/30/222038 Given 30 mg subcutaneous Right Lower Abdomen Performed by: Angle Falcon RN Scanned Package: [id number] sodium chloride (OCEAN) 0.65 % nasal spray 2 spray [[id number]] Ordering Provider: Rick North MD Status: Verified Ordered On: 11/30/222215 Start: 11/30/222215 Ordered Dose (Remaining/Total): 2 spray (--/--) Route: each nostril Frequency: 2 times daily PRN Ordered Rate/Order Duration: -- / -- (No admins scheduled or recorded for this medication) * Plan of Care - Kiko Nicole RN - 12/01/2022 10:32 AM CDT Problem: Safety: Goal: Will remain free from falls Outcome: Progressing Goals: Clinical Goals for the Shift: diuresis, nephrology consult, wound care consult, IV abx * Plan of Care - Angle Falcon RN - 12/01/2022 2:11 AM CDT Goals: Clinical Goals for the Shift: diuresis, nephrology consult, wound care consult, IV abx Summary: This shift: --Wound care: see wound section --Tolerating Diet: no solid food intake noted, water taken -- Adequate urine output: Voided x1 start of the shift --BM this shift: Not noted --Activity: remained in bed, assist with T&p --Pain control: No reports or display of pain --Free From Falls: Yes --Shift Events: Problem: Health Behavior: Goal: Understanding of discharge [...] Outcome: Progressing * Plan of Care - Dulce Cowan RN - 11/30/2022 6:21 PM CDT Problem: Safety: Goal: Will remain free from falls Outcome: Progressing Goals: Clinical Goals for the Shift: diuresis, nephrology consult, wound care consult, IV abx Summary: Patient arrived with Ursula, patient's daughter and caregiver. Patient ambulated very well with walker and standby assist. External female catheter on in bed. IV vanc and oral flagyl for unresolved osteomyelitis in right great toe, for which patient has been receiving IV vanc via PICC line outpatient. Patient receiving IV Lasix and albumin for diuresis. * Initial Assessments - Natacha Galvez RN - 11/30/2022 3:49 PM CDT CM Initial Assessment Interview Note Information Obtained From: Adult child Name: Areli Gayle (Daughter) [phone] (Home Phone) (11/30/22 1541) Admission Source: From ED, From [facility] Impression: Pt recently discharged from [facility] 11/06-11/14 and placed in NH for IV abx q ever other dayper PICC (11/11) for osteomyelitis of R great toe - pt sent to ED for increased swelling to lower extremities. Confusion about Lasix orders at [place]. Scr from baseline of 1.8 now at 2.7 Plan Includes: STEFANO - terminal gauger abx use, nephrology consult, gentle hydration, albumin 25GIV, BGM AC/HS with SSI, wound care, infectious dz consult, transfuse for hgb <7 (currently 7.9) Primary Source of Transportation: Does the patient need discharge transport arranged?: Yes Details of Transportation: If home with dtr - dtr can drive, pt able to walk with walker, if back to [place] can go by ambulance (history is schizophrenia, MRSA +) (11/30/22 1541) Health Insurance Coverage: Medicare A/B Pharmacy: [id number] - [place], [place] - [address] AT [address] [facility] [id number] [facility] [place] - [place], [place] - [address] [facility] [address] Primary Care Provider: Duane Corcoran MD Prior to Admission: Functional Status: Maximum assist with ADLs Primary Caregiver: Facility staff Support System: Children Support system contact info (name, phone, availablity): 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 Pt continues to need IV vanco q other day per PICC. 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 but is thinking of trying to find a antisqueak worker job) Facility contact name and number:: [facility] Steps in home?: Yes, Outside of home Number of steps outside: 3 steps (11/30/221540) SDOH: Transportation: In the past 12 months, has lack of transportation kept you from medical appointments or from getting medications?: No In the past 12 months, has lack of transportation kept you from meetings, work, or from getting things needed for daily living?: No (11/30/221539) Financial Resource: How hard is it for you to pay for the very basics like food, housing, medical care, and heating?: Not hard at all (11/30/221539) Housing: In the last 12 months, was there a time when you did not have a steady place to sleep or [facility] ([facility] now)?: No (11/30/221540) Social Connections: In a typical week, how many times do you talk on the phone with family, friends, or neighbors?: More than three times a week How often do you get together with friends or relatives?: More than three times a week How often do you attend caodaism or holiness services?: More than 4 times per year Do you belong to any clubs or organizations such as caodaism groups, unions, fraternal or athletic groups, or school groups?: No How often do you attend meetings of the clubs or organizations you belong to?: Never Are you , , , , never , or living with a partner?: (11/30/221540) Food Insecurity: None Alcohol Use: Q1: How often do you have a drink containing alcohol?: Never Q2: How many drinks containing alcohol do you have on a typical day when you are drinking?: Patientdoes not drink Q3: How often do you have six or more drinks on one occasion?: Never (11/30/221540) Potential discharge needs include: Home Health: prison, Physical therapy, Occupational therapy, IV therapy (11/30/221540) Return to SNF vs HH with IV infusion - pt to have IV vanc q every other day until December 23 for osteomyelitis or right great toe, MRSA Dtr trying to decide on disposition as she uneasy about NH care. Patient expects to be Discharged to: Other (Comment) (Dtr hesitent to return patient to [facility] but works aircraft time clerk.May want patient to return to her home and she will try to find [employer] job - HH w/IV infusion), (11/30/22 3901) Additional Information: 11/11 Status post PICC line placement Wound culture right toe wound MRSA, mixed Pt was to continue IV Vanc every other day and PO Flagyl- there was some discrepencies in understanding about patient's lasix . [place] notes indicate that patient to have PO Lasix PRN in light of CKD with indicator being a gain of weight >4lbs, but no lasix was given while in NH. Daughter states that patient used to be on 20mg Lasix daily. 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 TEO indexes indicate good flow per [place] vascular notes but toe is slow to heal. Daughter states the toe has been like this for several months. Diabetes and MRSA causing slow healing. Daughter states that NH placement is always difficult r/t patients history of schizophrenia. Dtr states that patient has never been violent and just hums to self, even more placid with dementia now. Patient's Identified Problem/Goal Problem: Ensure acute medical needs are met and that patient has a safe discharge plan. Goal: Secure a discharge plan that patient/family are agreeable with and ensure patient has continuum of care. 1. Collaboration with patient, MD, direct care nurse, Sole Filler, and other members of the health care team to assure needed interventions completed. 2. Return patient to optimal level of self-care post discharge. 3. Epic Application Coordinator will follow for Discharge Planning - interventions as needed 4. Anticipated level of care at discharge 5. Planned Discharge Disposition Natacha Galvez RN documented in this encounter Plan of Treatment Upcoming Encounters Date Type Department Care Team (Latest Contact Info) Description 07/13/2024 9:00 AM RAT CULTURIST Hospital Encounter [facility] [address] [place] [address] Jaya Grier MD [address] [place] [address] 07/13/2024 9:00 AM RAT CULTURIST - 07/13/2024 9:30 AM RAT CULTURIST Surgery [facility] [address] [place] [address] Jaya Grier MD [address] [place] [address] ESOPHAGOGASTRODUODENOSCOPY Pending Results Name Type Priority Associated Diagnoses Date /Time Vancomycin level random Lab STAT 0 11/30/2022 11:43 AM CDT Creatine kinase (CK), total Lab Routine 12/02/2022 5:45 AM CDT Scheduled Orders Name Type Priority Associated Diagnoses Orde r Schedule Vancomycin level random Lab STAT O nce for 1 Occurrences starting 11/30/2022 until 11/30/2022 Creatine kinase (CK), total Lab Routine Once for 1 Occur rences starting 12/02/2022 until 12/02/2022 Scheduled Procedures Name Priority Associated Diagnoses Date/Ti me ESOPHAGOGASTRODUODENOSCOPY Anemia, unspecified type Gastritis without bleeding, unspecified chronicity, unspecified gastritis type 07/13/2024 9:00 AM RAT CULTURIST COLONOSCOPY Iron deficiency anemia due to chronic blood loss documented as of this encounter Procedures Procedure Name Priority Date/Time Associated Diagnosis Comments POCT GLUCOSE DEVICE Routine 12/05/2022 8 :15 PM CDT POCT GLUCOSE DEVICE Routine 12/05/2022 4 :50 PM CDT POCT GLUCOSE DEVICE Routine 12/05/2022 1 1:59 AM CDT EGFR Routine 12/05/2022 7:35 AM CDT DIFFERENTIAL AUTO Routine 12/05/2022 7:3 5 AM CDT CBC WITH AUTO DIFFERENTIAL Routine 12/05/2022 7:35 AM CDT BASIC METABOLIC PANEL Routine 12/05/2022 7:35 AM CDT POCT GLUCOSE DEVICE Routine 12/05/2022 7 :19 AM CDT POCT GLUCOSE DEVICE Routine 12/04/2022 8 :29 PM CDT POCT GLUCOSE DEVICE Routine 12/04/2022 3 :42 PM CDT POCT GLUCOSE DEVICE Routine 12/04/2022 1 1:47 AM CDT POCT GLUCOSE DEVICE Routine 12/04/2022 7 :24 AM CDT EGFR Routine 12/04/2022 6:23 AM CDT DIFFERENTIAL AUTO Routine 12/04/2022 6:2 3 AM CDT CBC WITH AUTO DIFFERENTIAL Routine 12/04/2022 6:23 AM CDT MAGNESIUM Routine 12/04/2022 6:23 AM CDT COMPREHENSIVE METABOLIC PANEL Routine 12/04/2022 6:23 AM CDT POCT GLUCOSE DEVICE Routine 12/04/2022 5 :42 AM CDT POCT GLUCOSE DEVICE Routine 12/03/2022 8 :25 PM CDT POCT GLUCOSE DEVICE Routine 12/03/2022 4 :15 PM CDT EGFR Routine 12/03/2022 12:52 PM CDT DIFFERENTIAL AUTO Routine 12/03/2022 12: 52 PM CDT C4 COMPLEMENT Routine 12/03/2022 12:52 PM CDT CBC WITH AUTO DIFFERENTIAL Routine 12/03/2022 12:52 PM CDT C3 COMPLEMENT Routine 12/03/2022 12:52 PM CDT MAGNESIUM Routine 12/03/2022 12:52 PM CDT COMPREHENSIVE METABOLIC PANEL Routine 12/03/2022 12:52 PM CDT POCT GLUCOSE DEVICE Routine 12/03/2022 1 1:46 AM CDT POCT GLUCOSE DEVICE Routine 12/03/2022 7 :30 AM CDT POCT GLUCOSE DEVICE Routine 12/02/2022 8 :20 PM CDT POCT GLUCOSE DEVICE Routine 12/02/2022 4 :14 PM CDT POCT GLUCOSE DEVICE Routine 12/02/2022 1 1:33 AM CDT POCT GLUCOSE DEVICE Routine 12/02/2022 7 :52 AM CDT EGFR Routine 12/02/2022 5:45 AM CDT DIFFERENTIAL AUTO Routine 12/02/2022 5:4 5 AM CDT CBC WITH AUTO DIFFERENTIAL Routine 12/02/2022 5:45 AM CDT MAGNESIUM Routine 12/02/2022 5:45 AM CDT CREATINE KINASE (CK), TOTAL Routine 12/02/2022 5:45 AM CDT COMPREHENSIVE METABOLIC PANEL Routine 12/02/2022 5:45 AM CDT POCT GLUCOSE DEVICE Routine 12/01/2022 9 :12 PM CDT POCT GLUCOSE DEVICE Routine 12/01/2022 4 :21 PM CDT POCT GLUCOSE DEVICE Routine 12/01/2022 1 1:46 AM CDT TRANSTHORACIC ECHO (TTE) COMPLETE W DOPPLER/CF WO CONTRAST Routine 12/01/2022 10:07 AM CDT EGFR Routine 12/01/2022 9:09 AM CDT DIFFERENTIAL AUTO Routine 12/01/2022 9:0 9 AM CDT CBC WITH AUTO DIFFERENTIAL Routine 12/01/2022 9:09 AM CDT MAGNESIUM Routine 12/01/2022 9:09 AM CDT COMPREHENSIVE METABOLIC PANEL Routine 12/01/2022 9:09 AM CDT POCT GLUCOSE DEVICE Routine 12/01/2022 7 :55 AM CDT POCT GLUCOSE DEVICE Routine 11/30/2022 8 :34 PM CDT URINALYSIS AND REFLEX TO MICROSCOPIC AND CULTURE STAT 11/30/2022 7:15 PM CDT URINALYSIS, MICROSCOPIC ONLY STAT 11/30/2022 7:15 PM CDT URINE CULTURE STAT 11/30/2022 7:15 PM CDT IRON PROFILE W/ IBC Routine 11/30/2022 6 :35 PM CDT VITAMIN B12 Routine 11/30/2022 6:35 PM CDT B ABO / RH CONFIRMATION TESTING STAT 11/30/2022 4:13 PM CDT HEMOGLOBIN AND HEMATOCRIT STAT 11/30/2022 4:13 PM CDT HEMOGLOBIN A1C Add-On 11/30/2022 4:13 PM CDT ABO/RH Timed 11/30/2022 3:35 PM CDT ANTIBODY SCREEN Timed 11/30/2022 3:35 PM CDT HC ANTIBODY SCREEN RBC Timed 3:35 PM CDT POCT GLUCOSE DEVICE Routine 11/30/2022 3 :04 PM CDT XR TOE GREAT RIGHT ED 11/30/2022 12 :50 PM CDT ECG 12-LEAD STAT 11/30/2022 12:32 PM CDT XR CHEST 1 VIEW ED 11/30/2022 12:03 PM CDT EGFR STAT 11/30/2022 11:43 AM CDT DIFFERENTIAL AUTO STAT 11/30/2022 11: 43 AM CDT PRO B-TYPE NATRIURETIC PEPTIDE STAT 11/30/2022 11:43 AM CDT CBC WITH AUTO DIFFERENTIAL STAT 11/30/2022 11:43 AM CDT VANCOMYCIN LEVEL RANDOM STAT 11/30/2022 11:43 AM CDT COMPREHENSIVE METABOLIC PANEL STAT 11/30/2022 11:43 AM CDT documented in this encounter Results * POCT glucose (12/05/2022 8:15 PM CDT) [facility] Signature Glucose, POC 113 70 - 199 mg/dL [facility] Glucose comment 1 Use This Result [facility] Glucose comment 2 RN/MD Notified [facility] Blood 12/05/2022 8:15 PM CDT 12/05/2022 8:15 PM CDT us Jad Mead MD LAB POCT ORDERABLES - D EVICE Final Result Performing Organization Address [facility] Co de Phone Number NILSA [address] [place] [address] * (ABNORMAL) POCT glucose (12/05/2022 4:50 PM CDT) Glucose, POC 223(H) 70 - 199 mg/dL [facility] Glucose comment 1 Use This Result [facility] Glucose comment 2 RN/MD Notified [facility] Blood 12/05/2022 4:50 PM CDT 12/05/2022 4:50 PM CDT Jad Mead MD LAB POCT ORDERABLES - D EVICE Final Result Performing Organization Address [facility] de Phone Number [address] [place] [address] * POCT glucose (12/05/2022 11:59 AM CDT) [facility] Glucose, POC 194 70 - 199 mg/dL [facility] Glucose comment 1 Use This Result [facility] Blood 12/05/2022 11:5 9 AM CDT 12/05/2022 11:59 AM CDT Jad Mead MD LAB POCT ORDERABLES - D EVICE Final Result Performing Organization Address [facility] de Phone Number [address] [place] [address] * eGFR (12/05/2022 7:35 AM CDT) [facility] eGFR 22 mL/min/1. 73 m2 [facility] Comment: Interpretive Data Reference Interval Normal ?>/= [...] interpretive data was last reviewed 2021. Blood 12/05/2022 7:35 AM CDT 12/05/2022 8:07 AM CDT us Jad Mead MD LAB BLOOD ORDERABLES Fi nal Result [facility] [address] [facility] Department [place] [address] * Differential, auto (12/05/2022 7:35 AM CDT) Pathologist [facility] [place] Neutrophil abs 4.7 1.7 - 6.5 K/cumm [facility] Imm gran abs 0.0 0.0 - 0.1 K/cumm [facility] Lymphocyte abs 1.8 0.8 - 3.3 K/cumm [facility] Monocyte abs 0.7 0.2 - 0.8 K/cumm [facility] Eosinophil abs 0.2 0.0 - 0.5 K/cumm [facility] Basophil abs 0.0 0.0 - 0.1 K/cumm [facility] Neutrophil pct 63.5 % [facility] Comment: Interpretive Data Percent cell count reference ranges are not reported, since discordance with absolute values may lead to misinterpretation of CBC data. Current Interpretive Data was last revised on 2017. Imm gran pct 0.1 % [facility] Comment: Interpretive Data Percent cell count reference ranges are not reported, since discordance with absolute values may lead to misinterpretation of CBC data. Current Interpretive Data was last revised on 2017. Lymphocyte pct 23.6 % [facility] Comment: Interpretive Data Percent cell count reference ranges are not reported, since discordance with absolute values may lead to misinterpretation of CBC data. Current Interpretive Data was last revised on 2017. Monocyte pct 9.6 % [facility] Comment: Interpretive Data Percent cell count reference ranges are not reported, since discordance with absolute values may lead to misinterpretation of CBC data. Current Interpretive Data was last revised on 2017. Eosinophil pct 2.8 % [facility] Comment: Interpretive Data Percent cell count reference ranges are not reported, since discordance with absolute values may lead to misinterpretation of CBC data. Current Interpretive Data was last revised on 2017. Basophil pct 0.4 % [facility] Comment: Interpretive Data Percent cell count reference ranges are not reported, since discordance with absolute values may lead to misinterpretation of CBC data. Current Interpretive Data was last revised on 2017. Blood 12/05/2022 7:35 AM CDT 12/05/2022 8:07 AM CDT Skip Fabian MD LAB BLOOD ORDERABLES Blessing alicea Result [facility] [address] [facility] Department [place] [address] * (ABNORMAL) Basic metabolic panel (12/05/2022 7:35 AM CDT) Sodium 142 135 - 145 mmol/L [facility] Potassium, pl 4.5 3.3 - 4.9 mmol/L [facility] Chloride 111(H) 97 - 110 mmol/L [facility] CO2 23 22 - 32 mmol/L [facility] Anion gap 8 2 - 15 mmol/L [facility] BUN 51(H) 8 - 25 mg/dL [facility] Creatinine 2.30(H) 0.60 - 1.10 mg/dL [facility] Glucose 140 70 - 199 mg/dL [facility] Comment: Interpretive Data Fasting glucose >/= 126 [...] 2022. Calcium 8.9 8.5 - 10.3 mg/dL [facility] Blood 12/05/2022 7:35 AM CDT 12/05/2022 8:07 AM CDT us Jad Mead MD LAB BLOOD ORDERABLES Fi nal Result [facility] [address] [facility] Department [place] [address] * (ABNORMAL) CBC with auto differential (12/05/2022 7:35 AM CDT) Pathologist [facility] WBC 7.5 3.8 - 9.9 K/cumm [facility] Hgb 7.6(L) 11.9 - 15.5 g/dL [facility] Hct 24.2(L) 35.6 - 45.5 % [facility] Plt 280 150 - 400 K/cumm [facility] MPV 11.4 9.1 - 12.3 fL [facility] RBC 2.53(L) 3.90 - 5.20 M/cumm [facility] MCV 95.7 81.3 - 96.4 fL [facility] MCH 30.0 27.1 - 33.3 pg [facility] MCHC 31.4(L) 32.3 - 35.7 g/dL [facility] RDW CV 15.9(H) 11.1 - 14.9 % [facility] RDW SD 54.7(H) 35.7 - 48.1 fL [facility] NRBC abs 0.00 0.00 - 0.01 K/cumm [facility] Blood 12/05/2022 7:35 AM CDT 12/05/2022 8:07 AM CDT us Skip Fabian MD LAB BLOOD ORDERABLES Blessing l Result [facility] [place] [address] * POCT glucose (12/05/2022 7:19 AM CDT) Glucose, POC 138 70 - 199 mg/dL [facility] Glucose comment 1 Use This Result [facility] Blood 12/05/2022 7:19 AM CDT 12/05/2022 7:19 AM CDT Jad Mead MD LAB POCT ORDERABLES - D EVICE Final Result Performing Organization Address [facility] Co de Phone Number [address] [place] [address] * POCT glucose (12/04/2022 8:29 PM CDT) Glucose, POC 169 70 - 199 mg/dL [facility] Glucose comment 1 Use This Result [facility] Glucose comment 2 RN/MD Notified [facility] Blood 12/04/2022 8:29 PM CDT 12/04/2022 8:29 PM CDT Jad Mead MD LAB POCT ORDERABLES - D EVICE Final Result Performing Organization Address City/[facility]/ZIP Co de Phone Number [address] [place] [address] * POCT glucose (12/04/2022 3:42 PM CDT) Glucose, POC 147 70 - 199 mg/dL [facility] Blood 12/04/2022 3:42 PM CDT 12/04/2022 3:42 PM CDT Jad Mead MD LAB POCT ORDERABLES - D EVICE Final Result Performing Organization Address [facility] Co de Phone Number [address] [place] [address] * POCT glucose (12/04/2022 11:47 AM CDT) Glucose, POC 192 70 - 199 mg/dL [facility] Blood 12/04/2022 11:4 7 AM CDT 12/04/2022 11:47 AM CDT Jad Mead MD LAB POCT ORDERABLES - D EVICE Final Result Performing Organization Address [facility] de Phone Number [address] [place] [address] * POCT glucose (12/04/2022 7:24 AM CDT) Glucose, POC 183 70 - 199 mg/dL [facility] Blood 12/04/2022 7:24 AM CDT 12/04/2022 7:24 AM CDT Jad Mead MD LAB POCT ORDERABLES - D EVICE Final Result Performing Organization Address [facility] de Phone Number [address] [place] [address] * eGFR (12/04/2022 6:23 AM CDT) eGFR 20 mL/min/1. 73 m2 [facility] Comment: Interpretive Data Reference Interval Normal ?>/= [...] interpretive data was last reviewed 2021. Blood 12/04/2022 6:23 AM CDT 12/04/2022 6:56 AM CDT us Skip Fabian MD LAB BLOOD ORDERABLES Blessing alicea Result Performing Organization Address City/State/[facility] Co de Phone Number [facility] [address] [facility] Department [place] [address] * Differential, auto (12/04/2022 6:23 AM CDT) Pathologist [facility] Neutrophil abs 5.1 1.7 - 6.5 K/cumm [facility] Imm gran abs 0.0 0.0 - 0.1 K/cumm [facility] Lymphocyte abs 2.4 0.8 - 3.3 K/cumm [facility] Monocyte abs 0.8 0.2 - 0.8 K/cumm [facility] Eosinophil abs 0.2 0.0 - 0.5 K/cumm [facility] Basophil abs 0.0 0.0 - 0.1 K/cumm [facility] Neutrophil pct 59.3 % [facility] Comment: Interpretive Data Percent cell count reference ranges are not reported, since discordance with absolute values may lead to misinterpretation of CBC data. Current Interpretive Data was last revised on 2017. Imm gran pct 0.2 % [facility] Comment: Interpretive Data Percent cell count reference ranges are not reported, since discordance with absolute values may lead to misinterpretation of CBC data. Current Interpretive Data was last revised on 2017. Lymphocyte pct 27.7 % [facility] Comment: Interpretive Data Percent cell count reference ranges are not reported, since discordance with absolute values may lead to misinterpretation of CBC data. Current Interpretive Data was last revised on 2017. Monocyte pct 9.7 % [facility] Comment: Interpretive Data Percent cell count reference ranges are not reported, since discordance with absolute values may lead to misinterpretation of CBC data. Current Interpretive Data was last revised on 2017. Eosinophil pct 2.6 % [facility] Comment: Interpretive Data Percent cell count reference ranges are not reported, since discordance with absolute values may lead to misinterpretation of CBC data. Current Interpretive Data was last revised on 2017. Basophil pct 0.5 % [facility] Comment: Interpretive Data Percent cell count reference ranges are not reported, since discordance with absolute values may lead to misinterpretation of CBC data. Current Interpretive Data was last revised on 2017. Blood 12/04/2022 6:23 AM CDT 12/04/2022 6:56 AM CDT Skip Fabian MD LAB BLOOD ORDERABLES Blessing alicea Result [facility] [address] [facility] Department [place] [address] * (ABNORMAL) Comprehensive metabolic panel (12/04/2022 6:23 AM CDT) Sodium 140 135 - 145 mmol/L [facility] Potassium, pl 4.7 3.3 - 4.9 mmol/L [facility] Chloride 109 97 - 110 mmol/L [facility] CO2 22 22 - 32 mmol/L [facility] Anion gap 9 2 - 15 mmol/L [facility] BUN 55(H) 8 - 25 mg/dL [facility] Creatinine 2.50(H) 0.60 - 1.10 mg/dL [facility] Glucose 189 70 - 199 mg/dL [facility] Comment: Interpretive Data Fasting glucose >/= 126 [...] 2022. Calcium 8.7 8.5 - 10.3 mg/dL [facility] Bilirubin, total <0.2 0.1 - 1.2 mg/dL [facility] Protein, pl 6.7 6.5 - 8.5 g/dL [facility] Albumin 2.9(L) 3.5 - 5.0 g/dL [facility] Alk phos 107 40 - 130 Units/L [facility] ALT 7 7 - 45 Units/L [facility] AST 10 10 - 45 Units/L [facility] Blood 12/04/2022 6:23 AM CDT 12/04/2022 6:56 AM CDT Skip Fabian MD LAB BLOOD ORDERABLES Blessing alicea Result [facility] [address] [facility] Department [place] [address] * (ABNORMAL) CBC with auto differential (12/04/2022 6:23 AM CDT) Pathologist [facility] WBC 8.6 3.8 - 9.9 K/cumm [facility] Hgb 7.2(L) 11.9 - 15.5 g/dL [facility] Hct 22.5(L) 35.6 - 45.5 % [facility] Plt 267 150 - 400 K/cumm [facility] MPV 11.3 9.1 - 12.3 fL [facility] RBC 2.39(L) 3.90 - 5.20 M/cumm [facility] MCV 94.1 81.3 - 96.4 fL [facility] MCH 30.1 27.1 - 33.3 pg [facility] MCHC 32.0(L) 32.3 - 35.7 g/dL [facility] RDW CV 15.7(H) 11.1 - 14.9 % [facility] RDW SD 54.3(H) 35.7 - 48.1 fL [facility] NRBC abs 0.00 0.00 - 0.01 K/cumm [facility] Blood 12/04/2022 6:23 AM CDT 12/04/2022 6:56 AM CDT Skip Fabian MD LAB BLOOD ORDERABLES Blessing l Result Performing Organization Address City/[facility]/ZIP Co de Phone Number [address] [place] [address] * Magnesium (12/04/2022 6:23 AM CDT) [facility] Magnesium 2.2 1.4 - 2.5 mg/dL [facility] Blood 12/04/2022 6:23 AM CDT 12/04/2022 6:56 AM CDT Skip Fabian MD LAB BLOOD ORDERABLES Blessing l Result [address] [place] [address] * POCT glucose (12/04/2022 5:42 AM CDT) Glucose, POC 175 70 - 199 mg/dL [facility] Blood 12/04/2022 5:42 AM CDT 12/04/2022 5:42 AM CDT Jad Mead MD LAB POCT ORDERABLES - D EVICE Final Result Performing Organization Address [facility] de Phone Number [address] [place] [address] * POCT glucose (12/03/2022 8:25 PM CDT) Glucose, POC 184 70 - 199 mg/dL [facility] Glucose comment 1 Use This Result [facility] Blood 12/03/2022 8:25 PM CDT 12/03/2022 8:25 PM CDT Jad Mead MD LAB POCT ORDERABLES - D EVICE Final Result Performing Organization Address [facility] de Phone Number [address] [address] * (ABNORMAL) POCT glucose (12/03/2022 4:15 PM CDT) Glucose, POC 218(H) 70 - 199 mg/dL [facility] Glucose comment 1 Use This Result [facility] Blood 12/03/2022 4:15 PM CDT 12/03/2022 4:15 PM CDT Jad Mead MD LAB POCT ORDERABLES - D EVICE Final Result Performing Organization Address [facility] de Phone Number [address] [place] [address] * eGFR (12/03/2022 12:52 PM CDT) eGFR 17 mL/min/1. 73 m2 [facility] Comment: Interpretive Data Reference Interval Normal ?>/= [...] interpretive data was last reviewed 2021. Blood 12/03/2022 12:5 2 PM CDT 12/03/2022 1:03 PM CDT us Skip Fabian MD LAB BLOOD ORDERABLES Blessing alicea Result [facility] [address] [facility] [place] [address] * Differential, auto (12/03/2022 12:52 PM CDT) Pathologist [facility] Neutrophil abs 5.1 1.7 - 6.5 K/cumm [facility] Imm gran abs 0.0 0.0 - 0.1 K/cumm [facility] Lymphocyte abs 2.2 0.8 - 3.3 K/cumm [facility] Monocyte abs 0.6 0.2 - 0.8 K/cumm [facility] Eosinophil abs 0.2 0.0 - 0.5 K/cumm [facility] Basophil abs 0.0 0.0 - 0.1 K/cumm [facility] Neutrophil pct 62.4 % [facility] Comment: Interpretive Data Percent cell count reference ranges are not reported, since discordance with absolute values may lead to misinterpretation of CBC data. Current Interpretive Data was last revised on 2017. Imm gran pct 0.4 % [facility] Comment: Interpretive Data Percent cell count reference ranges are not reported, since discordance with absolute values may lead to misinterpretation of CBC data. Current Interpretive Data was last revised on 2017. Lymphocyte pct 26.8 % [facility] Comment: Interpretive Data Percent cell count reference ranges are not reported, since discordance with absolute values may lead to misinterpretation of CBC data. Current Interpretive Data was last revised on 2017. Monocyte pct 7.7 % [facility] Comment: Interpretive Data Percent cell count reference ranges are not reported, since discordance with absolute values may lead to misinterpretation of CBC data. Current Interpretive Data was last revised on 2017. Eosinophil pct 2.3 % [facility] Comment: Interpretive Data Percent cell count reference ranges are not reported, since discordance with absolute values may lead to misinterpretation of CBC data. Current Interpretive Data was last revised on 2017. Basophil pct 0.4 % [facility] Comment: Interpretive Data Percent cell count reference ranges are not reported, since discordance with absolute values may lead to misinterpretation of CBC data. Current Interpretive Data was last revised on 2017. Blood 12/03/2022 12:5 2 PM CDT 12/03/2022 1:03 PM CDT Skip Fabian MD LAB BLOOD ORDERABLES Blessing alicea Result [facility] [address] [facility] [place] [address] * (ABNORMAL) Comprehensive metabolic panel (12/03/2022 12:52 PM CDT) Sodium 138 135 - 145 mmol/L [facility] Potassium, pl 4.6 3.3 - 4.9 mmol/L [facility] Chloride 105 97 - 110 mmol/L [facility] CO2 21(L) 22 - 32 mmol/L [facility] Anion gap 12 2 - 15 mmol/L [facility] BUN 52(H) 8 - 25 mg/dL [facility] Creatinine 2.80(H) 0.60 - 1.10 mg/dL [facility] Glucose 155 70 - 199 mg/dL [facility] Comment: Interpretive Data Fasting glucose >/= 126 [...] 2022. Calcium 9.0 8.5 - 10.3 mg/dL [facility] Bilirubin, total <0.2 0.1 - 1.2 mg/dL [facility] Protein, pl 7.8 6.5 - 8.5 g/dL [facility] Albumin 3.1(L) 3.5 - 5.0 g/dL [facility] Alk phos 135(H) 40 - 130 Units/L [facility] ALT 9 7 - 45 Units/L [facility] AST 13 10 - 45 Units/L [facility] Blood 12/03/2022 12:5 2 PM CDT 12/03/2022 1:03 PM CDT us Skip Fabian MD LAB BLOOD ORDERABLES Blessing l Result [facility] [address] [facility] Department of Laboratories [place], [place] [id number] * (ABNORMAL) CBC with auto differential (12/03/2022 12:52 PM CDT) Pathologist [facility] [place] WBC 8.2 3.8 - 9.9 K/cumm [facility] Hgb 8.4(L) 11.9 - 15.5 g/dL [facility] Hct 25.8(L) 35.6 - 45.5 % [facility] Plt 289 150 - 400 K/cumm [facility] MPV 11.2 9.1 - 12.3 fL [facility] RBC 2.72(L) 3.90 - 5.20 M/cumm [facility] MCV 94.9 81.3 - 96.4 fL [facility] MCH 30.9 27.1 - 33.3 pg [facility] MCHC 32.6 32.3 - 35.7 g/dL [facility] RDW CV 15.7(H) 11.1 - 14.9 % [facility] RDW SD 55.0(H) 35.7 - 48.1 fL [facility] NRBC abs 0.00 0.00 - 0.01 K/cumm [facility] Blood 12/03/2022 12:5 2 PM CDT 12/03/2022 1:03 PM CDT Skip Fabian MD LAB BLOOD ORDERABLES Blessing l Result Performing Organization Address City/[facility]/ZIP Co de Phone Number [address] [place] [address] * Magnesium (12/03/2022 12:52 PM CDT) Magnesium 2.2 1.4 - 2.5 mg/dL [facility] Blood 12/03/2022 12:5 2 PM CDT 12/03/2022 1:03 PM CDT Skip Fabian MD LAB BLOOD ORDERABLES Blessing l Result [address] [place] [address] * C4 complement (12/03/2022 12:52 PM CDT) Complement C4 19.4 10.0 - 40.0 mg/dL [facility] Comment:Testing performed by : [facility], [address] [facility], [place]., [address] Blood 12/03/2022 12:5 2 PM CDT 12/03/2022 4:55 PM CDT Tucker Pitts MD LAB BLOOD ORDERABLES Final Resu lt Performing Organization Address [facility] Co de Phone Number [address] [address] * C3 complement (12/03/2022 12:52 PM CDT) Complement C3 92.0 90.0 - 180.0 mg/dL [facility] Comment:Testing performed by : [facility], [address] [place]., [address] Blood 12/03/2022 12:5 2 PM CDT 12/03/2022 4:55 PM CDT Result [facility] Tucker Pitts MD LAB BLOOD ORDERABLES Final Resu lt Performing Organization Address [facility] de Phone Number [address] [place] [address] * POCT glucose (12/03/2022 11:46 AM CDT) Glucose, POC 147 70 - 199 mg/dL [facility] Glucose comment 1 Use This Result [facility] Blood 12/03/2022 11:4 6 AM CDT 12/03/2022 11:46 AM CDT Result [facility] Jad Mead MD LAB POCT ORDERABLES - D EVICE Final Result Performing Organization Address [facility] Co de Phone Number [address] [place] [address] * (ABNORMAL) POCT glucose (12/03/2022 7:30 AM CDT) Glucose, POC 220(H) 70 - 199 mg/dL [facility] Glucose comment 1 Use This Result [facility] Blood 12/03/2022 7:30 AM CDT 12/03/2022 7:30 AM CDT Result [facility] Jad Mead MD LAB POCT ORDERABLES - D EVICE Final Result Performing Organization Address City/[facility]/ZIP Co de Phone Number [address] [place] [address] * POCT glucose (12/02/2022 8:20 PM CDT) Glucose, POC 141 70 - 199 mg/dL [facility] Blood 12/02/2022 8:20 PM CDT 12/02/2022 8:20 PM CDT us Jad Mead MD LAB POCT ORDERABLES - D EVICE Final Result Performing Organization Address [facility] Co de Phone Number [address] [address] * (ABNORMAL) POCT glucose (12/02/2022 4:14 PM CDT) Glucose, POC 272(H) 70 - 199 mg/dL [facility] Blood 12/02/2022 4:14 PM CDT 12/02/2022 4:14 PM CDT us Jad Mead MD LAB POCT ORDERABLES - D EVICE Final Result Performing Organization Address [facility] Co de Phone Number [address] [place] [address] * (ABNORMAL) POCT glucose (12/02/2022 11:33 AM CDT) Glucose, POC 277(H) 70 - 199 mg/dL [facility] Blood 12/02/2022 11:3 3 AM CDT 12/02/2022 11:33 AM CDT Jad Mead MD LAB POCT ORDERABLES - D EVICE Final Result Performing Organization Address City/[facility]/ZIP Co de Phone Number [address] [place] [address] * POCT glucose (12/02/2022 7:52 AM CDT) [facility] Glucose, POC 138 70 - 199 mg/dL [facility] Blood 12/02/2022 7:52 AM CDT 12/02/2022 7:52 AM CDT us Jad Mead MD LAB POCT ORDERABLES - D EVICE Final Result Performing Organization Address City/[facility] Co de Phone Number [address] [address] * Creatine kinase (CK), total (12/02/2022 5:45 AM CDT) [facility] CK 87 30 - 200 Units/L [facility] Blood 12/02/2022 5:45 AM CDT 12/02/2022 6:09 AM CDT us Jad Mead MD LAB BLOOD ORDERABLES Fi nal Result Performing Organization Address [facility] Co de Phone Number [address] [address] * eGFR (12/02/2022 5:45 AM CDT) [facility] eGFR 17 mL/min/1. 73 m2 [facility] Comment: Interpretive Data Reference Interval Normal ?>/= [...] interpretive data was last reviewed 2021. Blood 12/02/2022 5:45 AM CDT 12/02/2022 6:09 AM CDT us Skip Fabian MD LAB BLOOD ORDERABLES Blessing alicea Result [facility] [address] [facility] Department [place] [address] * Differential, auto (12/02/2022 5:45 AM CDT) Pathologist [facility] [place] Neutrophil abs 3.7 1.7 - 6.5 K/cumm [facility] Imm gran abs 0.0 0.0 - 0.1 K/cumm [facility] Lymphocyte abs 2.5 0.8 - 3.3 K/cumm [facility] Monocyte abs 0.7 0.2 - 0.8 K/cumm [facility] Eosinophil abs 0.2 0.0 - 0.5 K/cumm [facility] Basophil abs 0.0 0.0 - 0.1 K/cumm [facility] Neutrophil pct 51.4 % [facility] Comment: Interpretive Data Percent cell count reference ranges are not reported, since discordance with absolute values may lead to misinterpretation of CBC data. Current Interpretive Data was last revised on 2017. Imm gran pct 0.3 % [facility] Comment: Interpretive Data Percent cell count reference ranges are not reported, since discordance with absolute values may lead to misinterpretation of CBC data. Current Interpretive Data was last revised on 2017. Lymphocyte pct 34.7 % [facility] Comment: Interpretive Data Percent cell count reference ranges are not reported, since discordance with absolute values may lead to misinterpretation of CBC data. Current Interpretive Data was last revised on 2017. Monocyte pct 10.2 % [facility] Comment: Interpretive Data Percent cell count reference ranges are not reported, since discordance with absolute values may lead to misinterpretation of CBC data. Current Interpretive Data was last revised on 2017. Eosinophil pct 3.0 % [facility] Comment: Interpretive Data Percent cell count reference ranges are not reported, since discordance with absolute values may lead to misinterpretation of CBC data. Current Interpretive Data was last revised on 2017. Basophil pct 0.4 % [facility] Comment: Interpretive Data Percent cell count reference ranges are not reported, since discordance with absolute values may lead to misinterpretation of CBC data. Current Interpretive Data was last revised on 2017. Blood 12/02/2022 5:45 AM CDT 12/02/2022 6:09 AM CDT Skip Fabian MD LAB BLOOD ORDERABLES Blessing l Result [facility] [address] [facility] Department [place] [address] * (ABNORMAL) Comprehensive metabolic panel (12/02/2022 5:45 AM CDT) Sodium 142 135 - 145 mmol/L [facility] Potassium, pl 4.9 3.3 - 4.9 mmol/L [facility] Chloride 110 97 - 110 mmol/L [facility] CO2 22 22 - 32 mmol/L [facility] Anion gap 10 2 - 15 mmol/L [facility] BUN 52(H) 8 - 25 mg/dL [facility] Creatinine 2.90(H) 0.60 - 1.10 mg/dL [facility] Glucose 108 70 - 199 mg/dL [facility] Comment: Interpretive Data Fasting glucose >/= 126 [...] 2022. Calcium 9.0 8.5 - 10.3 mg/dL [facility] Bilirubin, total <0.2 0.1 - 1.2 mg/dL [facility] Protein, pl 6.7 6.5 - 8.5 g/dL [facility] Albumin 3.0(L) 3.5 - 5.0 g/dL [facility] Alk phos 87 40 - 130 Units/L [facility] ALT 8 7 - 45 Units/L [facility] AST 12 10 - 45 Units/L [facility] Blood 12/02/2022 5:45 AM CDT 12/02/2022 6:09 AM CDT Skip Fabian MD LAB BLOOD ORDERABLES Blessing alicea Result [facility] [address] [facility] Department [place] [address] * (ABNORMAL) CBC with auto differential (12/02/2022 5:45 AM CDT) WBC 7.2 3.8 - 9.9 K/cumm [facility] Hgb 7.3(L) 11.9 - 15.5 g/dL [facility] Hct 23.7(L) 35.6 - 45.5 % [facility] Plt 252 150 - 400 K/cumm [facility] MPV 10.8 9.1 - 12.3 fL [facility] RBC 2.45(L) 3.90 - 5.20 M/cumm [facility] MCV 96.7(H) 81.3 - 96.4 fL [facility] MCH 29.8 27.1 - 33.3 pg [facility] MCHC 30.8(L) 32.3 - 35.7 g/dL [facility] RDW CV 15.9(H) 11.1 - 14.9 % [facility] RDW SD 56.6(H) 35.7 - 48.1 fL [facility] NRBC abs 0.00 0.00 - 0.01 K/cumm [facility] Blood 12/02/2022 5:45 AM CDT 12/02/2022 6:09 AM CDT Skip Fabian MD LAB BLOOD ORDERABLES Blessing l Result Performing Organization Address City/[facility] Co de Phone Number [address] [place] [address] * Magnesium (12/02/2022 5:45 AM CDT) [facility] Magnesium 2.3 1.4 - 2.5 mg/dL [facility] Blood 12/02/2022 5:45 AM CDT 12/02/2022 6:09 AM CDT Skip Fabian MD LAB BLOOD ORDERABLES Blessing l Result Performing Organization Address [facility] de Phone Number [address] [place] [address] * (ABNORMAL) POCT glucose (12/01/2022 9:12 PM CDT) [facility] Glucose, POC 213(H) 70 - 199 mg/dL [facility] Glucose comment 1 Use This Result [facility] Glucose comment 2 RN/MD Notified [facility] Blood 12/01/2022 9:12 PM CDT 12/01/2022 9:12 PM CDT Aylin Kauffman MD LAB POCT ORDERABLES - DEVICE Fi nal Result Performing Organization Address [facility] Co de Phone Number [address] [place] [address] * (ABNORMAL) POCT glucose (12/01/2022 4:21 PM CDT) Glucose, POC 218(H) 70 - 199 mg/dL [facility] Blood 12/01/2022 4:21 PM CDT 12/01/2022 4:21 PM CDT Aylin Kauffman MD LAB POCT ORDERABLES - DEVICE Fi nal Result Performing Organization Address [facility] de Phone Number [address] [address] * POCT glucose (12/01/2022 11:46 AM CDT) Glucose, POC 181 70 - 199 mg/dL [facility] Blood 12/01/2022 11:4 6 AM CDT 12/01/2022 11:46 AM CDT Aylin Kauffman MD LAB POCT ORDERABLES - DEVICE Fi nal Result Performing Organization Address [facility] de Phone Number [address] [address] * TRANSTHORACIC ECHO (TTE) COMPLETE W DOPPLER/CF WO CONTRAST (12/01/2022 10:07 AM CDT) Anatomical Region Laterality Modality Ultrasound 12/01/2022 10:0 7 AM CDT Narrative 12/01/2022 11:09 PM CDT ? Adult Echocardiogram + ----- + :Name: SIXTO CHAKRABORTY ? Study Date: 12/01/2022 ?Status: MHB ?: : ?Patient Location: [facility]^[id number]^Height: 62 in ?: : ?Weight: 176 lbBP: 115/62 mmHg: :: 1950 ? Gender: Female ?BSA: 1.8 m2 ?: :Reason For Study: Cellulitis of the Lower Extremity ?: :Ordering Physician: AC, ?: :TAHMINA ?: : ? : :Performed By: Mindy ? : :SHEA Thayer ? : + ----- + Procedure A [...] pulmonary hypertension. + + :Measurements with Normals ?: :IVSd: ?(0.6-1.2 ?? LVIDd: ?(3.5-5.7 ?? Ao root diam: ?(2.0-3.7 ?? : :0.72 cm ?cm) ?4.2 cm ?cm) ?2.4 cm ? cm) ?: :LVPWd: ? (0.6-1.1 ?? LVIDs: ?(3.1-4.6 ?? LA dimension: ?(1.9-4.0 ?? : :0.78 cm ?cm) ?2.6 cm ?cm) ?3.3 cm ? cm) ?: + + MMode/2D Measurements & Calculations RVDd: 2.8 cm FS: 39.7 % ?Ao root area: 4.5 cm2 ??LVOT diam: 1.7 cm ? EDV(Teich): 79.9 ml ?LVOT area: 2.3 cm2 ? ESV(Teich): 23.4 ml Doppler Measurements & Calculations MV E max leonard: ? MV V2 max: ?MV P1/2t max leonard: ? Ao V2 max: 132.0 cm/sec ?128.0 cm/sec ?136.0 cm/sec ?168.0 cm/sec MV A max leonard: ? MV max PG: ?MV P1/2t: 58.3 msec ?? Ao max P.0 cm/sec ?6.6 mmHg ?MVA(P1/2t): 3.8 cm2 ?? 11.3 mmHg MV E/A: 1.2 ? MV V2 mean: ? MV dec slope: ? ALEXEY(V,D): 2.1 cm2 ?85.9 cm/sec ?MV mean PG: ? 683.0 cm/sec2 ?3.0 mmHg ?MV V2 VTI: 33.8 cm ? LV V1 max PG: ? TV V2 max: ?PA V2 max: ?RV V1 max: 10.0 mmHg ? 76.4 cm/sec ? 130.0 cm/sec ?84.7 cm/sec LV V1 max: ?TV max PG: ?PA max P.8 mmHg 158.0 cm/sec ?2.3 mmHg ? TR max leonard: ? RAP systole: 305.0 cm/sec ?3.0 mmHg TR max P.2 mmHg RVSP(TR): 40.2 mmHg Electronically signed by: Evangelist Jara MD 12/01/2022 11:09 PM Procedure Note Evangelist Jara MD - 12/01/2022 Adult Echocardiogram + ----- + :Name: SIXTO CHAKRABORTY Study Date: 12/01/2022Status: B : : Patient Location: [address]^[id number]^Height: 62 in : : : 176 lbBP: 115/62 mmHg: :: 1950 Gender: FemaleBSA: 1.8 m2 : :Reason For Study: Cellulitis of the Lower Extremity: :Ordering Physician: AC,: :TAHMINA: :: :Performed By: Mindy: :SHEA Thayer: + ----- + Procedure A two-dimensional transthoracic echocardiogram with color flow and Dopplerwas performed. Left Ventricle Left ventricular chamber size is normal. Left ventricular systolicfunction appears to be normal. No obvious regional wall motion abnormalitiesnoted. Technically inadequate to evaluate wall motion abnormalities. Right Ventricle The right ventricle is normal in size and function. Atria The left atrial size is normal. Right atrial size is normal. There is no Doppler evidence for an atrial septal defect. Mitral Valve The mitral valve is normal. There is no evidence of mitral valveprolapse. There is no mitral valve stenosis. No significant mitral regurgitationnoted. Tricuspid Valve The tricuspid valve is normal. There is mild tricuspid regurgitation.'Mild' pulmonary hypertension. Aortic Valve Difficult to assess number of leaflets. The aortic valve opens well. Noaortic stenosis . No aortic regurgitation is present. [...] 'Mild' pulmonary hypertension. + + :Measurements with Normals: :IVSd: (0.6-1.2 LVIDd: (3.5-5.7 Ao root diam:(2.0-3.7 : :0.72 cm cm) 4.2 cm cm) 2.4 cm cm): :LVPWd: (0.6-1.1 LVIDs: (3.1-4.6 LA dimension:(1.9-4.0 : :0.78 cm cm) 2.6 cm cm) 3.3 cm cm): + + MMode/2D Measurements & Calculations RVDd: 2.8 cm FS: 39.7 % Ao root area: 4.5 cm2 LVOT diam: 1.7cm EDV(Teich): 79.9 ml LVOT area: 2.3cm2 ESV(Teich): 23.4 ml Doppler Measurements & Calculations MV E max leonard: MV V2 max: MV P1/2t max leonard: Ao V2 max: 132.0 cm/sec 128.0 cm/sec 136.0 cm/sec 168.0 cm/sec MV A max leonard: MV max PG: MV P1/2t: 58.3 msec Ao max P.0 cm/sec 6.6 mmHg MVA(P1/2t): 3.8 cm2 11.3 mmHg MV E/A: 1.2 MV V2 mean: MV dec slope: ALEXEY(V,D): 2.1cm2 85.9 cm/sec MV mean P.0 cm/sec2 3.0 [...] TR max P.2 mmHg RVSP(TR): 40.2 mmHg Electronically signed by: Evangelist Jara MD 12/01/2022 11:09 PM Tahmina Charles NP CV ECHO PROCEDURES Final Resu lt * eGFR (12/01/2022 9:09 AM CDT) eGFR 18 mL/min/1. 73 m2 [facility] Comment: Interpretive [...] interpretive data was last reviewed 2021. Blood 12/01/2022 9:09 AM CDT 12/01/2022 9:25 AM CDT Tahmina Charles NP LAB BLOOD ORDERABLES Final Re sult [facility] [address] [facility] [place] [address] * Differential, auto (12/01/2022 9:09 AM CDT) Neutrophil abs 5.9 1.7 - 6.5 K/cumm [facility] Imm gran abs 0.0 0.0 - 0.1 K/cumm [facility] Lymphocyte abs 2.2 0.8 - 3.3 K/cumm [facility] Monocyte abs 0.6 0.2 - 0.8 K/cumm [facility] Eosinophil abs 0.1 0.0 - 0.5 K/cumm [facility] Basophil abs 0.0 0.0 - 0.1 K/cumm [facility] Neutrophil pct 66.5 % [facility] Comment: Interpretive Data Percent cell count reference ranges are not reported, since discordance with absolute values may lead to misinterpretation of CBC data. Current Interpretive Data was last revised on 2017. Imm gran pct 0.1 % [facility] Comment: Interpretive Data Percent cell count reference ranges are not reported, since discordance with absolute values may lead to misinterpretation of CBC data. Current Interpretive Data was last revised on 2017. Lymphocyte pct 25.1 % [facility] Comment: Interpretive Data Percent cell count reference ranges are not reported, since discordance with absolute values may lead to misinterpretation of CBC data. Current Interpretive Data was last revised on 2017. Monocyte pct 6.7 % [facility] Comment: Interpretive Data Percent cell count reference ranges are not reported, since discordance with absolute values may lead to misinterpretation of CBC data. Current Interpretive Data was last revised on 2017. Eosinophil pct 1.3 % [facility] Comment: Interpretive Data Percent cell count reference ranges are not reported, since discordance with absolute values may lead to misinterpretation of CBC data. Current Interpretive Data was last revised on 2017. Basophil pct 0.3 % [facility] Comment: Interpretive Data Percent cell count reference ranges are not reported, since discordance with absolute values may lead to misinterpretation of CBC data. Current Interpretive Data was last revised on 2017. Blood 12/01/2022 9:09 AM CDT 12/01/2022 9:24 AM CDT Tahmina Charles NP LAB BLOOD ORDERABLES Final Re sult Performing Organization Address City/[facility]/ZIP Co de Phone Number [address] [place] [address] * Magnesium (12/01/2022 9:09 AM CDT) [facility] Magnesium 2.4 1.4 - 2.5 mg/dL [facility] Blood 12/01/2022 9:09 AM CDT 12/01/2022 9:25 AM CDT Skip Fabian MD LAB BLOOD ORDERABLES Blessing l Result Performing Organization Address City/[facility] Co de Phone Number [address] [place] [address] * (ABNORMAL) CBC with auto differential (12/01/2022 9:09 AM CDT) [facility] WBC 8.9 3.8 - 9.9 K/cumm [facility] Hgb 8.2(L) 11.9 - 15.5 g/dL [facility] Hct 25.5(L) 35.6 - 45.5 % [facility] Plt 289 150 - 400 K/cumm [facility] MPV 10.8 9.1 - 12.3 fL [facility] RBC 2.69(L) 3.90 - 5.20 M/cumm [facility] MCV 94.8 81.3 - 96.4 fL [facility] MCH 30.5 27.1 - 33.3 pg [facility] MCHC 32.2(L) 32.3 - 35.7 g/dL [facility] RDW CV 16.0(H) 11.1 - 14.9 % [facility] RDW SD 56.0(H) 35.7 - 48.1 fL [facility] NRBC abs 0.00 0.00 - 0.01 K/cumm [facility] Blood 12/01/2022 9:09 AM CDT 12/01/2022 9:24 AM CDT Tahmina Charles REPORTS DEVELOPER LAB BLOOD ORDERABLES Final Re sult NILSA [address] [facility] [place] [address] * (ABNORMAL) Comprehensive metabolic panel (12/01/2022 9:09 AM CDT) Sodium 138 135 - 145 mmol/L [facility] Potassium, pl 5.0(H) 3.3 - 4.9 mmol/L [facility] Chloride 105 97 - 110 mmol/L [facility] CO2 22 22 - 32 mmol/L [facility] Anion gap 11 2 - 15 mmol/L [facility] BUN 46(H) 8 - 25 mg/dL [facility] Creatinine 2.70(H) 0.60 - 1.10 mg/dL [facility] Glucose 158 70 - 199 mg/dL [facility] Comment: Interpretive Data Fasting glucose >/= 126 [...] 2022. Calcium 9.0 8.5 - 10.3 mg/dL [facility] Bilirubin, total 0.3 0.1 - 1.2 mg/dL [facility] Protein, pl 7.3 6.5 - 8.5 g/dL [facility] Albumin 3.3(L) 3.5 - 5.0 g/dL [facility] Alk phos 94 40 - 130 Units/L [facility] ALT 8 7 - 45 Units/L [facility] AST 13 10 - 45 Units/L [facility] Blood 12/01/2022 9:09 AM CDT 12/01/2022 9:25 AM CDT Tahmina L. Ac REPORTS DEVELOPER LAB BLOOD ORDERABLES Final Re sult Performing Organization Address [facility]/ZIP Co de Phone Number [address] [place] [address] * POCT glucose (12/01/2022 7:55 AM CDT) Glucose, POC 128 70 - 199 mg/dL [facility] Blood 12/01/2022 7:55 AM CDT 12/01/2022 7:55 AM CDT us Aylin Kauffman MD LAB POCT ORDERABLES - DEVICE Fi nal Result Performing Organization Address [facility] Co de Phone Number [address] [address] * POCT glucose (11/30/2022 8:34 PM CDT) Glucose, POC 174 70 - 199 mg/dL [facility] Glucose comment 1 Use This Result [facility] Glucose comment 2 RN/MD Notified [facility] Blood 11/30/2022 8:34 PM CDT 11/30/2022 8:34 PM CDT us Skip Fabian MD LAB POCT ORDERABLES - DEV ICE Final Result Performing Organization Address [facility] Co de Phone Number [address] [address] * Urine culture Urine (11/30/2022 7:15 PM CDT) Report Final Report: Less than 100,000 colonies/mL (clinically insignificant growth based on current clinical standards) NILSA Comment:Testing performed by : [facility], [address] [facility], [place]., [address] Organism (CLINICALLY INSIGNIFICANT GR[facility]TH [facility] Urine 11/30/2022 7:15 PM CDT 11/30/2022 11:45 PM CDT Narrative [facility] - 12/02/2022 7:53 AM CDT Urine culture reflexed based upon urinalysis results. Testing performed by [facility] ([phone]) Tahmina Charles REPORTS DEVELOPER LAB MICROBIOLOGY - GENERAL OR DERABLES Final Result Performing Organization Address [facility] Co de Phone Number NILSA [address] [address] * (ABNORMAL) Urinalysis, microscopic only (11/30/2022 7:15 PM CDT) WBC, ur >50(A) 0 - 5 /HPF [facility] RBC, ur 6-10(A) 0 - 2 /HPF [facility] Epithelial cells, squamous, ur 1-5 0 - 5 /HPF [facility] Bacteria, ur Trace(A) [facility] Culture Reflex Comment Reflex to urine culture will be performed. [facility] Urine 11/30/2022 7:15 PM CDT 11/30/2022 7:21 PM CDT Tahmina Charles REPORTS DEVELOPER LAB URINE ORDERABLES Final Re sult Performing Organization Address [facility] de Phone Number [address] [address] * (ABNORMAL) Urinalysis reflex to microscopic and culture Urine (11/30/2022 7:15 PM CDT) Color, ur Yellow Yellow [facility] Clarity, ur Cloudy(A) Clear [facility] Specific gravity, ur 1.005 1.003 - 1.030 [facility] pH, urine 5.0 [facility] Protein, ur ql 1+(A) Negative [facility] Glucose, ur ql Negative Negative [facility] Ketones, ur Negative Negative [facility] Bilirubin, ur Negative Negative [facility] Blood, ur Negative Negative [facility] Urobilinogen, ur <2.0 <2.0 mg/dL [facility] Nitrite, ur Negative Negative [facility] Leukocyte esterase, ur 4+(A) Negative [facility] UA reflex comment Reflex to microscopic UA will be performed. [facility] Urine 11/30/2022 7:15 PM CDT 11/30/2022 7:20 PM CDT Narrative [facility] - 11/30/2022 7:25 PM CDT ?? Urine pH is affected by diet, medications, systemic acid-base disturbances, and renal tubular function. ??pH may affect urinary stone formation. ??For example, urine pH below 6.0 may help reduce the tendency for calcium phosphate stones and pH greater than 6.0 may reduce the tendency for uric acid stone formation. Source: [facility] [place]. Last revised 07-02-2017 Tahmina Charles NP LAB MICROBIOLOGY - GENERAL OR DERABLES Final Result Performing Organization Address [facility] Co de Phone Number [address] [address] * Vitamin B12 (11/30/2022 6:35 PM CDT) Vitamin B12 593 230 - 1,250 pg/mL [facility] Blood 11/30/2022 6:35 PM CDT 11/30/2022 6:52 PM CDT Tahmina Charles NP LAB BLOOD ORDERABLES Final Re sult Performing Organization Address [facility] de Phone Number [address] [address] * (ABNORMAL) Iron profile w/ IBC (11/30/2022 6:35 PM CDT) Iron 26(L) 35 - 145 mcg/dL [facility] TIBC 140(L) 250 - 400 mcg/dL [facility] Transferrin saturation 19(L) 20 - 50 % [facility] Blood 11/30/2022 6:35 PM CDT 11/30/2022 6:52 PM CDT Tahmina Charles NP LAB BLOOD ORDERABLES Final Re sult Performing Organization Address [facility]/ZIP Co de Phone Number [address] [address] * (ABNORMAL) Hemoglobin and hematocrit (11/30/2022 4:13 PM CDT) [facility] Hgb 8.6(L) 11.9 - 15.5 g/dL [facility] Hct 27.5(L) 35.6 - 45.5 % [facility] Blood 11/30/2022 4:13 PM CDT 11/30/2022 4:17 PM CDT Narrative [facility] - 11/30/2022 4:19 PM CDT Prior to transfusion. Skip Fabian MD LAB BLOOD ORDERABLES Blessing l Result Performing Organization Address [facility] Co de Phone Number [address] [address] * ABO / Rh Confirmation Testing (11/30/2022 4:13 PM CDT) [facility] ABO/Rh Confirmation B Positive [facility] Blood 11/30/2022 4:13 PM CDT 11/30/2022 4:17 PM CDT Tahmina Charles NP LAB BLOOD ORDERABLES Final Re sult Performing Organization Address [facility] Co de Phone Number [address] [address] * (ABNORMAL) Hemoglobin A1c (11/30/2022 4:13 PM CDT) [facility] Hgb A1C 7.1(H) 4.0 - 5.6 % [facility] Estimated Average Glucose 157 mg/dL [facility] Comment: The ADA recommends reporting an estimated Average Glucose (eAG) with all Hemoglobin A1c results using the equation derived from a study of 507 normal and diabetic adults. ??Minority populations were underrepresented and children were not included. ?? (Diabetes Care 31:3645-2891, 2008). ??The eAG is not equivalent to a fasting glucose. Blood 11/30/2022 4:13 PM CDT 11/30/2022 4:38 PM CDT Tahmina Charles NP LAB BLOOD ORDERABLES Final Re sult [address] [place] [address] * Antibody screen (11/30/2022 3:35 PM CDT) Regi, indirect, Gel Interpretation Negative ABSC [facility] Blood 11/30/2022 3:35 PM CDT 11/30/2022 3:38 PM CDT Narrative [facility] - 11/30/2022 4:19 PM CDT Has the patient had Daratumumab or Isatuximab in the past 6 months?->Unknown Tahmina Charles NP LAB BLOOD BANK TEST ORDERABLE S Final Result [address] [address] * ABO/Rh (11/30/2022 3:35 PM CDT) [facility] ABO/Rh B Positive [facility] Blood 11/30/2022 3:35 PM CDT 11/30/2022 3:38 PM CDT Narrative [facility] - 11/30/2022 4:19 PM CDT Has the patient had Daratumumab or Isatuximab in the past 6 months?->Unknown Tahmina Charles NP LAB BLOOD BANK TEST ORDERABLE S Final Result [address] [address] * POCT glucose (11/30/2022 3:04 PM CDT) Glucose, POC 116 70 - 199 mg/dL [facility] Blood 11/30/2022 3:04 PM CDT 11/30/2022 3:04 PM CDT Skip Fabian MD LAB POCT ORDERABLES - DEV ICE Final Result [facility] [address] [facility] Department [place] [address] * XR Toe Great Right Minimum 2 Views (11/30/2022 12:50 PM CDT) Anatomical Region Laterality Modality Lower Extremities, Foot, Toes Right Co mputed Radiography 11/30/2022 1:07 PM CDT Narrative 11/30/2022 1:13 PM CDT EXAM DESCRIPTION: ?? XR TOE ??GREAT RIGHT MINIMUM 2 VIEWS REASON FOR STUDY: ?? chronic toe infection ?? R/o osteomyelitis. ??-tech hold for lateral and internal oblique ?? TECHNIQUE: ??Three views 1st digit right foot COMPARISON: ??X-ray of the right foot dated 11/06/2022 FINDINGS: The tuft cortex of the 1st digit right foot demonstrates irregularity. ??The very tip demonstrates some minimal interval reabsorption best appreciated when comparing the lateral views. ??No associated soft tissue gas. ??Soft tissue swelling present. 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 ??Osteoarthritic changes are present. ??Atherosclerotic vascular disease. IMPRESSION: 1. ?? Minimal interval bone reabsorption of the right tip of the tuft 1st digit right foot. ??Findings worrisome for osteomyelitis. ??Soft tissue swelling. THIS IS AN ELECTRONICALLY VERIFIED FINAL REPORT 11/30/2022 1:13 PM - Electronically signed by ??Adryan POWERS D: ??11/30/2022 1:13 PM T: Report ID: [id number] Reading Location: ??[id number] Procedure Note Adryan Vick, DO - 11/30/2022 EXAM DESCRIPTION: XR TOE GREAT RIGHT MINIMUM 2 VIEWS REASON FOR STUDY: chronic toe infection R/o osteomyelitis. -tech hold for lateral and internal oblique TECHNIQUE: Three views 1st digit right foot COMPARISON: X-ray of the right foot dated 11/06/2022 FINDINGS: The tuft cortex of the 1st digit right foot demonstrates irregularity.The very tip demonstrates some minimal interval reabsorption best appreciatedwhen comparing the lateral views. No associated soft tissue gas. Soft tissue swelling present. Amputation of the phalanges involving the 4th digit ofthe right foot again noted. Osteoarthritic changes are present.Atherosclerotic vascular disease. IMPRESSION: 1. Minimal interval bone reabsorption of the right tip of the tuft 1stdigit right foot. Findings worrisome for osteomyelitis. Soft tissue swelling. THIS IS AN ELECTRONICALLY VERIFIED FINAL REPORT 11/30/2022 1:13 PM - Electronically signed by Adryan Vick M.D. JS T: Report ID: [id number] Reading Location: [place] [address] Mee Dominguez DO IMG XR PROCEDURES Final Result * ECG 12 lead (11/30/2022 12:32 PM CDT) Ventricular Rate EKG/Min [address] [facility] Atrial Rate 74 BPM [facility] ID-Interval (MSEC) 170 ms [facility] QRS-Interval (MSEC) 66 ms [facility] QT-Interval (MSEC) 398 ms [facility] QTc 441 ms [facility] P [place] [address] [facility] R [place] 17 degrees [facility] T [place] [address] [facility] Diagnosis Normal sinus rhythm Low voltage QRS Borderline ECG When compared with ECG of 19-JUN-2022 11:28, No significant change was found [facility] 11/30/2022 12:3 2 PM CDT 11/30/2022 5:06 PM CDT Mee Dominguez DO ECG ORDERABLES Final Result [facility] * XR Chest 1 Vw Portable (11/30/2022 12:03 PM CDT) Anatomical Region Laterality Modality Body, Chest N/A Computed Radiogr aphy 11/30/2022 1:04 PM CDT Narrative 11/30/2022 1:07 PM CDT EXAM DESCRIPTION: ?? XR CHEST 1 VIEW REASON FOR STUDY: ?? swelling ?? Pt with onset extremity swelling over past 4-5 days, fatigue weakness as well ?? TECHNIQUE: ??One-view COMPARISON: ??10/02/2022 and 08/01/2022 FINDINGS: Heart size is normal. ??No pneumothorax. ??Increased markings over the lower lung cavanaugh due to overlying soft tissue. ??No eleazar findings of lobar pneumonia. ??No pulmonary edema. ??Some flattening of the diaphragms. IMPRESSION: 1. ?? No lobar pneumonia. THIS IS AN ELECTRONICALLY VERIFIED FINAL REPORT 11/30/2022 1:07 PM - Electronically signed by ??Adryan POWERS D: ??11/30/2022 1:07 PM T: Report ID: [id number] Reading Location: ??[id number] Procedure Note Adryan Vick, DO - 11/30/2022 EXAM DESCRIPTION: XR CHEST 1 VIEW REASON FOR STUDY: swelling Pt with onset extremity swelling over past 4-5 days, fatigue weakness aswell TECHNIQUE: One-view COMPARISON: 10/02/2022 and 08/01/2022 FINDINGS: Heart size is normal. No pneumothorax. Increased markings over the lower lung cav[place] due to overlying soft tissue. No eleazar findings of lobar pneumonia. No pulmonary edema. Some flattening of the diaphragms. IMPRESSION: 1. No lobar pneumonia. THIS IS AN ELECTRONICALLY VERIFIED FINAL REPORT 11/30/2022 1:07 PM - Electronically signed by Adryan POWERS T: Report ID: [id number] Reading Location: [id number] us Mee Dominguez DO IMG XR PROCEDURES Final Result * Vancomycin level random (11/30/2022 11:43 AM CDT) Vancomycin random 8.3 mcg/mL [facility] Comment: Interpretive Data No reference ranges have been established for random drug levels. Current Interpretive Data was last revised on 2020. Blood 11/30/2022 11:4 3 AM CDT 11/30/2022 11:45 AM CDT Skip Fabian MD LAB BLOOD ORDERABLES Blessing alicea Result [facility] [address] [facility] Department [place] [address] * eGFR (11/30/2022 11:43 AM CDT) eGFR 18 mL/min/1. 73 m2 [facility] RODRIGES Comment: Interpretive [...] interpretive data was last reviewed 2021. Blood 11/30/2022 11:4 3 AM CDT 11/30/2022 11:45 AM CDT us Mee TurpinWade HARRISON LAB BLOOD ORDERABLES Final Resu lt [facility] [address] [facility] Department [place] [address] * (ABNORMAL) Differential, auto (11/30/2022 11:43 AM CDT) Neutrophil abs 6.6(H) 1.7 - 6.5 K/cumm [facility] Imm gran abs 0.0 0.0 - 0.1 K/cumm [facility] Lymphocyte abs 2.3 0.8 - 3.3 K/cumm [facility] Monocyte abs 0.8 0.2 - 0.8 K/cumm [facility] Eosinophil abs 0.2 0.0 - 0.5 K/cumm [facility] Basophil abs 0.0 0.0 - 0.1 K/cumm [facility] Neutrophil pct 66.6 % [facility] Comment: Interpretive Data Percent cell count reference ranges are not reported, since discordance with absolute values may lead to misinterpretation of CBC data. Current Interpretive Data was last revised on 2017. Imm gran pct 0.2 % [facility] Comment: Interpretive Data Percent cell count reference ranges are not reported, since discordance with absolute values may lead to misinterpretation of CBC data. Current Interpretive Data was last revised on 2017. Lymphocyte pct 23.2 % [facility] Comment: Interpretive Data Percent cell count reference ranges are not reported, since discordance with absolute values may lead to misinterpretation of CBC data. Current Interpretive Data was last revised on 2017. Monocyte pct 8.1 % [facility] Comment: Interpretive Data Percent cell count reference ranges are not reported, since discordance with absolute values may lead to misinterpretation of CBC data. Current Interpretive Data was last revised on 2017. Eosinophil pct 1.6 % [facility] Comment: Interpretive Data Percent cell count reference ranges are not reported, since discordance with absolute values may lead to misinterpretation of CBC data. Current Interpretive Data was last revised on 2017. Basophil pct 0.3 % [facility] Comment: Interpretive Data Percent cell count reference ranges are not reported, since discordance with absolute values may lead to misinterpretation of CBC data. Current Interpretive Data was last revised on 2017. Blood 11/30/2022 11:4 3 AM CDT 11/30/2022 11:46 AM CDT us Mee Dominguez DO LAB BLOOD ORDERABLES Final Resu lt [facility] [address] [facility] [place] [address] * (ABNORMAL) Pro B-type natriuretic peptide (11/30/2022 11:43 AM CDT) NT-proBNP 361(H) <=300 pg/mL [facility] RODRIGES Comment: Interpretive Comments: A. Dyspnea in Acute [...] Interpretive Data Last Revised Date: 2018. Blood 11/30/2022 11:4 3 AM CDT 11/30/2022 11:45 AM CDT Mee Dominguez DO LAB BLOOD ORDERABLES Final Resu lt [facility] [address] [facility] Department [place] [address] * (ABNORMAL) Comprehensive metabolic panel (11/30/2022 11:43 AM CDT) Sodium 142 135 - 145 mmol/L [facility] Potassium, pl 4.9 3.3 - 4.9 mmol/L [facility] Chloride 110 97 - 110 mmol/L [facility] CO2 23 22 - 32 mmol/L [facility] Anion gap 9 2 - 15 mmol/L [facility] BUN 47(H) 8 - 25 mg/dL [facility] Creatinine 2.70(H) 0.60 - 1.10 mg/dL [facility] Glucose 124 70 - 199 mg/dL [facility] Comment: Interpretive Data Fasting glucose >/= 126 [...] 2022. Calcium 8.6 8.5 - 10.3 mg/dL [facility] Bilirubin, total <0.2 0.1 - 1.2 mg/dL [facility] Protein, pl 6.9 6.5 - 8.5 g/dL [facility] Albumin 2.9(L) 3.5 - 5.0 g/dL [facility] Alk phos 96 40 - 130 Units/L [facility] ALT 9 7 - 45 Units/L [facility] AST 13 10 - 45 Units/L [facility] Blood 11/30/2022 11:4 3 AM CDT 11/30/2022 11:45 AM CDT Mee Dominguez DO LAB BLOOD ORDERABLES Final Resu lt [facility] [address] [facility] Department of Laboratories [place], [place] [id number] * (ABNORMAL) CBC with auto differential (11/30/2022 11:43 AM CDT) WBC 9.9 3.8 - 9.9 K/cumm [facility] Hgb 7.9(L) 11.9 - 15.5 g/dL [facility] Hct 25.0(L) 35.6 - 45.5 % [facility] Plt 272 150 - 400 K/cumm [facility] MPV 10.6 9.1 - 12.3 fL [facility] RBC 2.61(L) 3.90 - 5.20 M/cumm [facility] MCV 95.8 81.3 - 96.4 fL [facility] MCH 30.3 27.1 - 33.3 pg [facility] MCHC 31.6(L) 32.3 - 35.7 g/dL [facility] RDW CV 15.9(H) 11.1 - 14.9 % [facility] RDW SD 56.4(H) 35.7 - 48.1 fL [facility] NRBC abs 0.00 0.00 - 0.01 K/cumm [facility] Blood 11/30/2022 11:4 3 AM CDT 11/30/2022 11:46 AM CDT Mee Dominguez DO LAB BLOOD ORDERABLES Final Resu lt [facility] [address] [facility] Department [place] [address] documented in this encounter Visit Diagnoses Diagnosis Acute renal failure superimposed on chronic kidney disease, unspecified CKD stage, unspecified acute renal failure type Edema, unspecified type Hypertension, unspecified type Chronic osteomyelitis (CMS/HCC) (HCC) Osteomyelitis of great toe of right foot (CMS/HCC) (HCC) Acute renal failure superimposed on chronic kidney disease, unspecified CKD stage, unspecified acute renal failure type Type 2 diabetes mellitus with diabetic neuropathy, with long-term current use of insulin (HCC) Gastroesophageal reflux disease Esophageal reflux Toe necrosis (CMS/HCC) (HCC) Anemia in stage 4 chronic kidney disease (HCC) Anemia, unspecified type Gastritis without bleeding, unspecified chronicity, unspecified gastritis type documented in this encounter Admitting Diagnoses Diagnosis Acute renal failure superimposed on chronic kidney disease, unspecified CKD stage, unspecified acute renal failure type documented in this encounter Administered Medications Inactive Administered Medications - up to 3 most recent administrations Medication Order MAR Action Action Date Dose Rate Site albumin 25 % bottle 25 g 25 g, intravenous, Once, On 11/30/22 at 1800, For 1 dose, Infusion rate depends on indication and clinical situation. Suggested initial rate - 60 mL/hr. In patients with normal plasma volume, do not exceed 1 mL/minute., Indications: Nephrotic SyndromeIndications:Nephrotic Syndrome New Bag 11/30/2022 6:32 PM CDT 25 g amLODIPine (NORVASC) tablet 10 mg 10 mg, oral, Nightly, First dose (after last modification) on 12/01/22 at 2100 Given 12/05/2022 9:21 PM CDT 10 mg Given 12/04/2022 8:55 PM CDT 10 mg Given 12/03/2022 9:13 PM CDT 10 mg amLODIPine (NORVASC) tablet 5 mg 5 mg, oral, Nightly, First dose on 11/30/22 at 2100 Given 11/30/2022 8:39 PM CDT 5 mg atorvastatin (LIPITOR) tablet 20 mg 20 mg, oral, Nightly, First dose on Thu11/30/22 at 2100 Given 12/05/2022 9:22 PM CDT 20 mg Given 12/04/2022 8:54 PM CDT 20 mg Given 12/03/2022 9:13 PM CDT 20 mg benztropine (COGENTIN) tablet 1.5 mg 1.5 mg, oral, Nightly, First dose on Thu11/30/22 at 2100 Given 12/05/2022 9:22 PM CDT 1.5 mg Given 12/04/2022 8:55 PM CDT 1.5 mg Given 12/03/2022 9:13 PM CDT 1.5 mg Carrier Fluids for Secondary Infusion - 0.9% Sodium Chloride 30 mL, intravenous, As needed, For priming tubing and/or flushing, Starting on Thu11/30/22 at 1623, 0-250 ml/hr to flush line after IV infusions when no maintenance IV ordered. Infuse 30mL at the same rate as the secondary infusion. Run as primary IV, not intended for KVO. Given 11/30/2022 4:58 PM CDT 30 mL carvediloL (COREG) tablet 12.5 mg 12.5 mg, oral, 2 times daily with meals (bkfst, dinner), First dose on Thu11/30/22 at 1800 Given 12/05/2022 5:49 PM CDT 12.5 mg Given 12/05/2022 9:27 AM CDT 12.5 mg Given 12/04/2022 5:44 PM CDT 12.5 mg cefTRIAXone (ROCEPHIN) 2,000 mg/20 mL in sterile water (premix) 2,000 mg 2,000 mg, intravenous, at 1,200 mL/hr, Administer over 1 Minutes, Every 24 hours scheduled, First dose on Thu12/02/22 at 0900, Indications: Other (complete free text reason below), OsteomyelitisIndications:Other (complete free text reason below),Osteomyelitis Given 12/05/2022 9:39 AM CDT 2,000 mg 1200 mL/hr Given 12/04/2022 9:00 AM CDT 2,000 mg 1200 mL/hr Given 12/03/2022 8:20 AM CDT 2,000 mg 1200 mL/hr dextrose (D10W) 10% bolus 250 mL 250 mL, intravenous, at 1,000 mL/hr, Administer over 15 Minutes, Every 15 min PRN, blood glucose less than 70 mg/dL and UNABLE to swallow/take PO glucose/juice., Starting on Thu11/30/22 at 1623, After treatment for hypoglycemia, recheck BG followed [...] glucose less than 70 mg/dL, Starting on Thu11/30/22 at 1623, If patient is alert and able to [...] Call MD for each episode of hypoglycemia. APPELLATE COURT CLERK STATES GLUTOSE-15 CONTAINS GLUCOSE 40% W/W (50% W/V), Indications: hypoglycemic disorderIndications:hypoglycemic disorder doxycycline monohydrate (MONODOX) capsule 100 mg 100 mg, oral, 2 times daily (for quinolones,etc), First dose on Thu12/02/22 at 0600, Give 2 hrs before or 2 hrs after MVI, antacids, or other products containing sucralfate, magnesium, aluminum, iron, or zinc. May be taken without regard to meals., Indications: Skin/Soft Tissue InfectionIndications:Skin/Soft Tissue Infection Given 12/05/2022 5:49 PM CDT 100 mg Given 12/05/2022 5:09 AM CDT 100 mg Given 12/04/2022 5:44 PM CDT 100 mg enoxaparin (LOVENOX) syringe 30 mg 30 mg, subcutaneous, Daily (for enoxaparin), First dose (after last modification) on Thu11/30/22 at 2100, Indications: VTE ProphylaxisIndications:VTE Prophylaxis Given 11/30/2022 8:39 PM CDT 30 mg Right Lower Abdomen epoetin isaiah-epbx (RETACRIT) (10,000 unit/mL) injection 10,000 Units 10,000 Units, subcutaneous, Weekly (for epoetins), First dose on Kellie 12/04/22 at 2100, Refrigerate, Indications: Anemia NOT associated with chemotherapy, radiation, or ESRD, anemia of ckdIndications:Anemia NOT associated with chemotherapy, radiation, or ESRD,anemia of ckd Given 12/04/2022 9:03 PM CDT 10,000 Units Right Lower Abdomen famotidine (PEPCID) tablet 10 mg 10 mg, oral, Daily, First dose on Thu12/01/22 at 0900 Given 12/05/2022 9:27 AM CDT 10 mg Given 12/04/2022 8:59 AM CDT 10 mg Given 12/03/2022 8:19 AM CDT 10 mg ferrous sulfate tablet 325 mg 325 mg (65 mg of elemental iron), oral, 3 times daily with meals, First dose on Kellie 12/04/22 at 1200, Indications: Iron Deficiency AnemiaIndications:Iron Deficiency Anemia Given 12/05/2022 5:49 PM CDT 325 mg Given 12/05/2022 1:45 PM CDT 325 mg Given 12/05/2022 9:28 AM CDT 325 mg furosemide (LASIX) 10 mg/mL injection 40 mg 40 mg, intravenous, Once, On Thu11/30/22 at 1236, For 1 dose, For IV push: administer doses < 160 mg at a rate of 20 -40 mg/min. Doses >/= 160 mg should be administered no faster than 4 mg/min. Room temperature only Given 11/30/2022 12: 51 PM CDT 40 mg furosemide (LASIX) 10 mg/mL injection 40 mg 40 mg, intravenous, Daily, First dose on Thu12/01/22 at 0900, For IV push: administer doses < 160 mg at a rate of 20 -40 mg/min. Doses >/= 160 mg should be administered no faster than 4 mg/min. Room temperature only Given 12/02/2022 11: 04 AM CDT 40 mg Given 12/01/2022 9:43 AM CDT 40 mg furosemide (LASIX) tablet 40 mg 40 mg, oral, 2 times daily (for diuretics), First dose on Thu12/05/22 at 0930 Given 12/05/2022 3:48 PM CDT 40 mg Given 12/05/2022 9:28 AM CDT 40 mg heparin 5,000 unit/mL injection 5,000 Units 5,000 Units, subcutaneous, Every 8 hours scheduled, First dose on Thu12/01/22 at 1600, Indications: Deep Vein Thrombosis PreventionIndications:Deep Vein Thrombosis Prevention Given 12/05/2022 9:23 PM CDT 5,000 Units Left Lower Abdomen Given 12/05/2022 1:45 PM CDT 5,000 Units L eft Lower Abdomen Given 12/05/2022 5:09 AM CDT 5,000 Units L eft Lower Abdomen insulin lispro (HumaLOG, ADMELOG) 100 unit/mL injection 0-10 Units 0-10 Units, subcutaneous, 3 times daily with meals, First dose on Thu11/30/22 at 1800, Blood glucose mg/dL: 149 or [...] NPO Status, Indications: Diabetes MellitusIndications:Diabetes Mellitus Given 12/05/2022 5:49 PM CDT 4 Units Right Upper Arm Given 12/05/2022 1:43 PM CDT 2 Units Le ft Forearm Given 12/04/2022 12:36 PM CDT 2 Units R ight Upper Arm insulin lispro (HumaLOG, ADMELOG) 100 unit/mL injection 0-5 Units 0-5 Units, subcutaneous, Nightly, First dose on Thu11/30/22 at 2100, Blood glucose mg/dL: 149 or [...] NPO Status, Indications: Diabetes MellitusIndications:Diabetes Mellitus Given 12/01/2022 9:35 PM CDT 2 Units Left Lower Abdomen Given 11/30/2022 9:00 PM CDT 1 Units Le ft Upper Arm insulin lispro (HumaLOG, ADMELOG) 100 unit/mL injection 7 Units 7 Units (rounded from 6.64 Units = 0.083 Units/kg ? 80 kg), subcutaneous, 3 times daily with meals, First dose on Thu11/30/22 at 1800, If BG greater than or [...] 70 mg/dL., Indications: Diabetes MellitusIndications:Diabetes Mellitus Given 12/05/2022 5:48 PM CDT 7 Units Right Upper Arm Given 12/05/2022 1:45 PM CDT 7 Units Le ft Forearm Given 12/05/2022 9:28 AM CDT 7 Units Ri ght Upper Arm ipratropium-albuteroL (DUO-NEB) 0.5-2.5 mg/3 mL nebulizer solution - ADS Override Pull Starting on Thu12/04/22 at 2015, For 1 dose, Created by cabinet override ipratropium-albuteroL (DUO-NEB) 0.5-2.5 mg/3 mL nebulizer solution 3 mL 3 mL, nebulization, Once (emergency response technician), On Thu12/04/22 at 2045, For 1 dose, Indications: Chronic Obstructive Pulmonary Disease with BronchospasmsIndications:Chronic Obstructive Pulmonary Disease with Bronchospasms Given 12/04/2022 8:19 PM CDT 3 mL metroNIDAZOLE (FLAGYL) tablet 500 mg 500 mg, oral, 3 times daily, First dose on Thu11/30/22 at 1630, Indications: Blood Stream/Endovascular InfectionIndications:Blood Stream/Endovascular Infection Given 12/01/2022 5:17 PM CDT 500 mg Given 12/01/2022 9:42 AM CDT 500 mg Given 11/30/2022 9:00 PM CDT 500 mg multivitamin with folic acid 400 mcg tablet 1 tablet 1 tablet, oral, Daily, First dose on 11/30/22 at 1700, Sub for ascorbic acid Given 12/05/2022 9:28 AM CDT 1 tab let Given 12/04/2022 9:00 AM CDT 1 tablet Given 12/03/2022 8:19 AM CDT 1 tablet ondansetron (ZOFRAN) injection 4 mg 4 mg, intravenous, Administer over 2 Minutes, Every 6 hours PRN, nausea, vomiting, if not tolerating PO, Starting on 11/30/22 at 1623, Indications: Nausea and VomitingIndications:Nausea and Vomiting ondansetron ODT (ZOFRAN-ODT) disintegrating tablet 4 mg 4 mg, oral, Every 6 hours PRN, nausea, vomiting, Starting on 11/30/22 at 1623, Indications: Nausea and VomitingIndications:Nausea and Vomiting povidone-iodine (BETADINE) 10 % external solution topical, Once, On [place] 12/04/22 at 1045, For 1 dose, Apply to affected area: wound Given 12/04/2022 2:25 PM CDT pregabalin (LYRICA) capsule 75 mg 75 mg, oral, Nightly, First dose on 11/30/22 at 2100 Given 12/05/2022 9:21 PM CDT 75 mg Given 12/04/2022 8:55 PM CDT 75 mg Given 12/03/2022 9:13 PM CDT 75 mg risperiDONE (RisperDAL) tablet 2 mg 2 mg, oral, Nightly, First dose on 11/30/22 at 2100 Given 12/05/2022 9:20 PM CDT 2 mg Given 12/04/2022 8:55 PM CDT 2 mg Given 12/03/2022 9:13 PM CDT 2 mg sodium chloride (OCEAN) 0.65 % nasal spray 2 spray 2 spray, each nostril, 2 times daily PRN, congestion, Starting on 11/30/22 at 2216 sodium chloride 0.9% bolus 500 mL 500 mL, intravenous, at 500 mL/hr, Administer over 1 Hours, Once, On 11/30/22 at 1235, For 1 dose New Bag 11/30/2022 12:51 PM CDT 500 mL 500 mL/hr sodium chloride 0.9% flush 0.5-20 mL 0.5-20 mL, intra-catheter, Every 8 hours scheduled, First dose on [place] 11/30/22 at 1700, Flush volume based on line type and size. Given 12/05/2022 9:23 PM CDT 20 mL Given 12/05/2022 1:48 PM CDT 10 mL Given 12/05/2022 5:10 AM CDT 10 mL vancomycin 1,000 mg/250 mL in sodium chloride 0.9% (premix) 1,000 mg 1,000 mg, intravenous, Administer over 60 Minutes, Once, On [place] 11/30/22 at 1715, For 1 dose, Indications: Bone/Joint InfectionIndications:Bone/Joint Infection New Bag 11/30/2022 5:24 PM CDT 1,000 mg documented in this encounter Discontinued Medications Medication Sig Discontinue Reason Start Date End Da te atorvastatin (LIPITOR) 20 mg tabletIndications:Hyper lipidemia associated with type 2 diabetes mellitus ([facility]) Take 1 tablet (20 mg total) by mouth daily Duplicate order 11/13/2022 11/30/2022 vancomycin IVBPIndications:Skin/So ft Tissue Infection Infuse 209 mL (1,045 mg total) into a venous catheter every other day Duplicate order 11/15/2022 11/30/2022 miscellaneous medical supply (Blood Pressure Cuff) miscIndications:Hyperte nsion associated with diabetes ([facility]) Use to check blood pressure daily Therapy completed 10/07/2021 11/30/2022 blood pressure monitor kit Check BP as instructed Therapy completed 03/20/2021 11/30/2022 lancets miscIndications:Uncontr olled type 2 diabetes mellitus with hyperglycemia ([facility]) Check blood sugar up to 3 times a day Therapy completed 11/13/2020 11/30/2022 syringe with needle, insulin (INSULIN SYRINGE-NEEDLE U-100 MIS) 3 times a day Therapy completed 09/12/2017 11/30/2022 BD Arlyn 2nd Gen Pen Needle 32 gauge x 5/32 needleIndications:Type 2 diabetes mellitus with diabetic neuropathy, with long-term current use of insulin ([facility]) USE TO INJECT BASAGLAR EVERY NIGHT AT BEDTIME Therapy completed 06/25/2021 11/30/2022 apixaban (ELIQUIS) 5 mg tabletIndications:Venou s Thrombosis Take 1 tablet (5 mg total) by mouth 2 (two) times a day 11/30/2022 insulin lispro (HumaLOG, ADMELOG) 100 unit/mL pen for injection Inject 12 Units under the skin 3 (three) times a day before meals plus sliding scale Reorder 12/05/2022 insulin glargine 100 unit/mL (3 mL) pen for injection Inject 25 Units under the skin nightly Reorder 12/05/2022 furosemide (LASIX) 40 mg tablet Take 1 tablet (40 mg total) by mouth daily as needed (Weight Gain >4lbs above dry weight.) Stop Taking at Discharge 11/13/2022 12/06/2022 losartan (COZAAR) 100 mg tablet Take 1 tablet (100 mg total) by mouth daily Stop Taking at Discharge 11/14/2022 12/06/2022 pregabalin (LYRICA) 150 mg capsuleIndications:Othe r diabetic neurological complication associated with type 2 diabetes mellitus ([facility]) Take 1 capsule (150 mg total) by mouth nightly Stop Taking at Discharge 11/13/2022 12/06/2022 amLODIPine (NORVASC) 5 mg tablet Take 1 tablet (5 mg total) by mouth nightly Stop Taking at Discharge 11/13/2022 12/06/2022 metroNIDAZOLE (FLAGYL) 500 mg tabletIndications:Bone/ Joint Infection Take 1 tablet (500 mg total) by mouth 3 (three) times a day Stop Taking at Discharge 11/13/2022 12/06/2022 vancomycin IVBPIndications:Bone/Funmi int Infection,Cellulitis,Os teomyelitis,Skin/Soft Tissue Infection Infuse 200 mL (1 g total) into a venous catheter every other day for cellulitis of right great toe Stop Taking at Discharge 11/19/2022 12/06/2022 furosemide (LASIX) 20 mg tabletIndications:Edema Take 1 tablet (20 mg total) by mouth daily Stop Taking at Discharge 11/29/2022 12/06/2022 documented as of this encounter Historical Medications * This list may reflect changes made after this encounter. lidocaine (ASPERCREME) 4 % adhesive patch,medicated Place 1 patch on the skin daily as needed to lower back dulaglutide (TRULICITY) 1.5 mg/0.5 mL pen injector Inject 0.5 mL (1.5 mg total) under the skin once a week on Mondays 3 Saccharomyces boulardii (FLORASTOR) 250 mg capsule Take 1 capsule (250 mg total) by mouth 2 (two) times a day while receiving antibiotic therapy 11/14/2022 3 amino acids-protein hydr-fiber (Pro-Stat Renal Care) 15-100 gram-kcal/30 mL liquid Take 30 mL by mouth 2 (two) times a day 3 polyethylene glycol (MIRALAX) 17 gram packetIndication s:constipation Take 1 packet (17 g total) by mouth daily as needed for constipation 3 famotidine (PEPCID) 10 mg tablet Take 1 tablet (10 mg total) by mouth daily 3 multivitamin with minerals tablet Take 1 tablet by mouth daily 3 magnesium hydroxide (MILK OF MAGNESIA) suspension 400 mg/5 mL Take 30 mL by mouth nightly as needed (constipation if no bowel movement in 3 days) 3 insulin glargine 100 unit/mL (3 mL) pen for injection Inject 25 Units under the skin nightly 3 insulin lispro (HumaLOG, ADMELOG) 100 unit/mL [...] ADMELOG) 100 unit/mL pen for injection Inject 12 Units under the skin 3 (three) times a day before meals plus sliding scale 3 furosemide (LASIX) 20 mg tabletIndication s:Edema Take 1 tablet (20 mg total) by mouth daily 11/29/2022 3 bisacodyL (FLEET-BISACODYL ) 10 mg/30 mL enema Insert 30 mL (10 mg total) into the rectum daily as needed for constipation (if no results 24 hours after suppository) 3 apixaban (ELIQUIS) 5 mg tabletIndication s:Venous Thrombosis Take 1 tablet (5 mg total) by mouth 2 (two) times a day 3 magnesium citrate solution Take 296 mL by mouth daily as needed (for constipation if no results after enema) 3 vancomycin IVBPIndications: Bone/Joint Infection,Cellul itis,Osteomyelit is,Skin/Soft Tissue Infection Infuse 200 mL (1 g total) into a venous catheter every other day for cellulitis of right great toe 11/19/2022 3 bisacodyL (DULCOLAX) 10 mg suppositoryIndic ations:constipat ion Insert 1 suppository (10 mg total) into the rectum daily as needed for constipation 3 ascorbic acid 500 mg tablet,chewable Take 1 tablet/chew tab (500 mg total) by mouth 2 (two) times a day 3 atorvastatin (LIPITOR) 20 mg tablet Take 1 tablet (20 mg total) by mouth nightly 3 acetaminophen (TYLENOL) 325 mg tablet Take 2 tablets (650 mg total) by mouth every 6 (six) hours as needed for pain 3 added in this encounter Active and Recently Administered Medications Times are shown in CDT. Scheduled Medication Order 12/03/2022 12/04/2022 12/05/2022 amLODIPine (NORVASC) tablet 10 mg 10 mg, oral, Nightly, First dose (after last modification) on Thu12/01/22 at 2100 211 (Given - Provider: Spring Ernst RN) 2054 (Given - Provider: Dustin Duvall RN) 2120 (Given - Provider: Annika Reyes, ALIREZA) atorvastatin (LIPITOR) tablet 20 mg 20 mg, oral, Nightly, First dose on Thu11/30/22 at 2100 211 (Given - Provider: Spring Ernst RN) 2053 (Given - Provider: Dustin Duvall RN) 2121 (Given - Provider: Annika Reyes, ALIREZA) benztropine (COGENTIN) tablet 1.5 mg 1.5 mg, oral, Nightly, First dose on Thu11/30/22 at 2100 2113 (Given - Provider: Spring Ernst RN) 2054 (Given - Provider: Dustin Duvall, ALIREZA) 2121 (Given - Provider: Annika Reyes RN) carvediloL (COREG) tablet 12.5 mg 12.5 mg, oral, 2 times daily with meals (bkfst, dinner), First dose on Thu11/30/22 at 1800 0819 (Given - Provider: Mi Pardo RN)1719 (Given - Provider: Mi Pardo RN) 0859 (Given - Provider: Dulce Cowan RN)174 (Given - Provider: Dulce Cowan RN) 0927 (Given - Provider: Dulce Cowan RN)174 (Given - Provider: Hemalatha Marinelli) cefTRIAXone (ROCEPHIN) 2,000 mg/20 mL in sterile water (premix) 2,000 mg 2,000 mg, intravenous, at 1,200 mL/hr, Administer over 1 Minutes, Every 24 hours scheduled, First dose on Thu12/02/22 at 0900, Indications: Other (complete free text reason below), Osteomyelitis 0820 (Given - Provider: Mi Pardo RN) 0900 (Given - Provider: Dulce Cowan RN) 0939 (Given - Provider: Dulce Cowan RN) doxycycline monohydrate (MONODOX) capsule 100 mg 100 mg, oral, 2 times daily (for quinolones,etc), First dose on Thu12/02/22 at 0600, Give 2 hrs before or 2 hrs after MVI, antacids, or other products containing sucralfate, magnesium, aluminum, iron, or zinc. May be taken without regard to meals., Indications: Skin/Soft Tissue Infection 0609 (Given - Provider: Spring Ernst RN)1719 (Given - Provider: Mi Pardo RN) 0534 (Given - Provider: Spring Ernst RN)1744 (Given - Provider: Dulce Cowan RN) 0509 (Given - Provider: Dustin Duvall, ALIREZA)174 (Given - Provider: Hemalatha Marinelli) epoetin isaiah-epbx (RETACRIT) (10,000 unit/mL) injection 10,000 Units 10,000 Units, subcutaneous, Weekly (for epoetins), First dose on Thu12/04/22 at 2100, Refrigerate, Indications: Anemia NOT associated with chemotherapy, radiation, or ESRD, anemia of ckd 2102 (Given - Provider: Dustin Duvall, ALIREZA) famotidine (PEPCID) tablet 10 mg 10 mg, oral, Daily, First dose on Thu12/01/22 at 0900 0819 (Given - Provider: Mi Pardo RN) 0859 (Given - Provider: Dulce Cowan RN) 0927 (Given - Provider: Dulce Cowan RN) ferrous sulfate tablet 325 mg 325 mg (65 mg of elemental iron), oral, 3 times daily with meals, First dose on Thu12/04/22 at 1200, Indications: Iron Deficiency Anemia 1236 (Given - Provider: Xi Mejia RN)1744 (Given - Provider: Dulce Cowan RN) 0928 (Given - Provider: Dulce Cowan RN)1345 (Given - Provider: Sara Shaikh RN)1749 (Given - Provider: Hemalatha Marinelli) furosemide (LASIX) tablet 40 mg 40 mg, oral, 2 times daily (for diuretics), First dose on Thu12/05/22 at 0930 0928 (Given - Provider: Dulce Cowan RN)1548 (Given - Provider: Dulce Cowan, ALIREZA) heparin 5,000 unit/mL injection 5,000 Units 5,000 Units, subcutaneous, Every 8 hours scheduled, First dose on Thu12/01/22 at 1600, Indications: Deep Vein Thrombosis Prevention 0609 (Given - Provider: Spring Ernst RN)1432 (Given - Provider: Mi Pardo RN)211 (Given - Provider: Spring Ernst RN) 0533 (Given - Provider: Spring Ernst RN)1424 (Given - Provider: Dulce Cowan RN)210 (Given - Provider: Dustin Duvall, ALIREZA) 0509 (Given - Provider: Dustin Duvall RN)1345 (Given - Provider: Sara Shaikh RN)2123 (Given - Provider: Annika Reyes RN) insulin lispro (HumaLOG, ADMELOG) 100 unit/mL injection 0-10 Units 0-10 Units, subcutaneous, 3 times daily with meals, First dose on 11/30/22 at 1800, Blood glucose mg/dL: 149 or [...] hold for NPO Status, Indications: Diabetes Mellitus 0819 (Given - Provider: Mi Pardo RN)1149 (Not Given - Provider: Mi Pardo RN - Reason: Order parameters not met)1721 (Given - Provider: Mi Pardo RN) 0900 (Given - Provider: Dulce Cowan RN)1236 (Given - Provider: Xi Mejia RN)1704 (Not Given - Provider: Dulce Cowan RN - Reason: Order parameters not met) 0751 (Not Given - Provider: Dulce Cowan RN - Reason: Order parameters not met)1343 (Given - Provider: Sara Shaikh RN)1749 (Given - Provider: Hemalatha Marinelli) insulin lispro (HumaLOG, ADMELOG) 100 unit/mL injection 7 Units 7 Units (rounded from 6.64 Units = 0.083 Units/kg ? 80 kg), subcutaneous, 3 times daily with meals, First dose on 11/30/22 at 1800, If BG greater than or [...] less than 70 mg/dL., Indications: Diabetes Mellitus 0819 (Given - Provider: Mi Pardo RN)1156 (Given - Provider: Mi Pardo RN)1721 (Given - Provider: Mi Pardo RN) 0900 (Given - Provider: Dulce Cowan RN)1236 (Given - Provider: Xi Mejia RN)1744 (Given - Provider: Dulce Cowan RN) 0928 (Given - Provider: Dulce Cowan RN)1345 (Given - Provider: Sara Shaikh, ALIREZA)1748 (Given - Provider: Hemalatha Marinelli) ipratropium-albuteroL (DUO-NEB) 0.5-2.5 mg/3 mL nebulizer solution 3 mL (COMPLETED) 3 mL, nebulization, Once (emergency response technician), On Kell[place] 12/04/22 at 2045, For 1 dose, Indications: Chronic Obstructive Pulmonary Disease with Bronchospasms 2018 (Given - Provider: Brittney Gaines, HEEL LAYER) losartan (COZAAR) tablet 100 mg 100 mg, oral, Daily, First dose on Thu12/01/22 at 0900, On hold since Thu11/30/2022 at 1622 until manually unheld 0900 (Dose Auto Held) 0900 (Canceled Entry - Provider: Dulce Cowan RN) 0900 (Canceled Entry - Provider: Dulce Cowan RN) multivitamin with folic acid 400 mcg tablet 1 tablet 1 tablet, oral, Daily, First dose on Thu11/30/22 at 1700, Sub for ascorbic acid 0819 (Given - Provider: Mi Pardo RN) 0900 (Given - Provider: Dulce Cowan RN) 0928 (Given - Provider: Dulce Cowan RN) povidone-iodine (BETADINE) 10 % external solution (COMPLETED) topical, Once, On [place] 12/04/22 at 1045, For 1 dose, Apply to affected area: wound 1425 (Given - Provider: Dulce Cowan RN) pregabalin (LYRICA) capsule 75 mg 75 mg, oral, Nightly, First dose on 11/30/22 at 2100 2113 (Given - Provider: Spring Ernst RN) 2054 (Given - Provider: Dustin Duvall RN) 2120 (Given - Provider: Annika Reyes RN) risperiDONE (RisperDAL) tablet 2 mg 2 mg, oral, Nightly, First dose on 11/30/22 at 2100 2113 (Given - Provider: Spring Ernts RN) 2054 (Given - Provider: Dustin Duvall RN) 2119 (Given - Provider: Annika Reyes, ALIREZA) sodium chloride 0.9% flush 0.5-20 mL 0.5-20 mL, intra-catheter, Every 8 hours scheduled, First dose on 11/30/22 at 1700, Flush volume based on line type and size. 0610 (Given - Provider: Spring Ernst RN)1426 (Given - Provider: Mi Pardo RN)2113 (Given - Provider: Spring Ernst RN) 0534 (Given - Provider: Spring Ernst RN)1339 (Not Given - Provider: Dulce Cowan RN - Reason: Other - Comment: previously given)2102 (Given - Provider: Dustin Duvall RN) 0510 (Given - Provider: Dustin Duvall RN)1348 (Given - Provider: Sara Shaikh RN)2122 (Given - Provider: Annika Reyes, ALIREZA) PRN Medication Order 12/03/2022 12/04/2022 12/05/2022 albuterol HFA (PROVENTIL HFA,VENTOLIN HFA,PROAIR HFA) 90 mcg/actuation inhaler 2 puff 2 puff, inhalation, Every 4 hours PRN (emergency response technician), wheezing, shortness of breath, Starting on 11/30/22 at 1625 bisacodyL (DULCOLAX) suppository 10 mg 10 mg, rectal, Daily PRN, constipation, Starting on Thu11/30/22 at 1623, Indications: constipation Carrier Fluids for Secondary Infusion - 0.9% Sodium Chloride 30 mL, intravenous, As needed, For priming tubing and/or flushing, Starting on Thu11/30/22 at 1623, 0-250 ml/hr to flush line after IV [...] UNABLE to swallow/take PO glucose/juice., Starting on [place] 11/30/22 at 1623, After treatment for hypoglycemia, recheck BG followed [...] glucose less than 70 mg/dL, Starting on [place] 11/30/22 at 1623, If patient is alert and able to [...] Call MD for each episode of hypoglycemia. APPELLATE COURT CLERK STATES GLUTOSE-15 CONTAINS GLUCOSE 40% W/W (50% W/V), Indications: hypoglycemic disorder glucagon injection 1 mg 1 mg, intramuscular, Every 30 min PRN, low blood sugar, blood glucose less than 70 mg/dL AND no IV access AND unable to take PO glucose/juice., Starting on [place] 11/30/22 at 1623, After Glucagon is administered, position patient on [...] vomiting, if not tolerating PO, Starting on 11/30/22 at 1623, Indications: Nausea and Vomiting ondansetron ODT (ZOFRAN-ODT) disintegrating tablet 4 mg(Linked Group 2) 4 mg, oral, Every 6 hours PRN, nausea, vomiting, Starting on 11/30/22 at 1623, Indications: Nausea and Vomiting polyethylene glycol (MIRALAX) packet 17 g 17 g, oral, Daily PRN, constipation, Starting on 11/30/22 at 1623, Indications: constipation sodium chloride (OCEAN) 0.65 % nasal spray 2 spray 2 spray, each nostril, 2 times daily PRN, congestion, Starting on 11/30/22 at 2216 sodium chloride 0.9% flush 0.5-20 mL 0.5-20 mL, intra-catheter, As needed, line care, Starting on 11/30/22 at 1623, Flush volume based on line type and size. Flush before and after each use. Linked Groups Order Group 1: dextrose (GLUTOSE) 40 % gel 15 gJump to med 15 g, oral, Every 15 min PRN, low blood sugar, blood glucose less than 70 mg/dL, Starting on 11/30/22 at 1623, If patient is alert and able to [...] Call MD for each episode of hypoglycemia. APPELLATE COURT CLERK STATES GLUTOSE-15 CONTAINS GLUCOSE 40% W/W (50% W/V), Indications: hypoglycemic disorder Or dextrose (D10W) 10% bolus 250 mLJump to med 250 mL, intravenous, at 1,000 mL/hr, Administer over 15 Minutes, Every 15 min PRN, blood glucose less than 70 mg/dL and UNABLE to swallow/take PO glucose/juice., Starting on 11/30/22 at 1623, After treatment for hypoglycemia, recheck BG followed [...] 6 hours PRN, nausea, vomiting, Starting on 11/30/22 at 1623, Indications: Nausea and Vomiting Or ondansetron (ZOFRAN) injection 4 mgJump to med 4 mg, intravenous, Administer over 2 Minutes, Every 6 hours PRN, nausea, vomiting, if not tolerating PO, Starting on 11/30/22 at 1623, Indications: Nausea and Vomiting documented in this encounter Orders Medications Ordered That Flip ht Not Have Been Administered Count Last Ordered Date First Ordered Date furosemide (LASIX) 10 mg/mL injection 120 mg 1 12/05/2022 albuterol HFA (PROVENTIL HFA ,VENTOLIN HFA,PROAIR HFA) 90 mcg/actuation inhaler 2 puff 1 11/30/2022 ascorbic acid (VITAMIN C) ta blet/chewable tablet 500 mg 1 11/30/2022 bisacodyL (DULCOLAX) suppository 10 mg cefepime (MAXIPIME) 1,000 mg in sodium chloride 0.9% 100 mL IVPB 11/30/2022 cefepime (MAXIPIME) 2,000 mg in sodium chloride 0.9% 100 mL IVPB 11/30/2022 dextrose (D10W) 10% bolus 250 mL 12/01/19 dextrose (GLUTOSE) 40 % gel 15 g 12/01/19 enoxaparin (LOVENOX) syringe 40 mg 2022 glucagon injection 1 mg 11/30/2022 insulin glargine (LANTUS, SE MGLEE) 100 unit/mL injection 12 Units 11/30/2022 losartan (COZAAR) tablet 100 mg ondansetron (ZOFRAN) injection 4 mg 11/30 ondansetron ODT (ZOFRAN-ODT) disintegrating tablet 4 mg 11/30/2022 polyethylene glycol (MIRALAX) packet 17 g 11/30/2022 sodium chloride (OCEAN) 0.65 % nasal spray 2 spray 1 11/30/2022 sodium chloride 0.9% flush 0.5-20 mL 1 11/20 Vancomycin per Pharmacy 1 11/30/2022 Lab Orders Without Results Count Last Ordered D ate First Ordered Date POCT GLUCOSE DEVICE 36 12/05/2022 12/02/19 Diet Count Last Ordered Date First Orde red Date ADULT DISCHARGE DIET 1 12/05/2022 Nursing Count Last Ordered Date First Orde red Date DISCHARGE ACTIVITY 1 12/05/2022 DISCHARGE CALL PROVIDER 8 12/05/2022 DISCHARGE INSTRUCTIONS 1 12/05/2022 FOLLOW UP WITH ESTABLISHED PROVIDER 3 12/05 NURSING COMMUNICATION 1 11/30/2022 WOUND CARE 1 11/30/2022 Consult Count Last Ordered Date First Orde red Date IP CONSULT TO SOCIAL WORK 1 12/01/2022 IP CONSULT TO INFECTIOUS DISEASES 1 023 IP CONSULT TO NEPHROLOGY 1 11/30/2022 Admission Count Last Ordered Date First Orde red Date ADMIT TO INPATIENT 1 11/30/2022 Transfer Count Last Ordered Date First Orde red Date ED TO FLOOR BED REQUEST 1 11/30/2022 Discharge Count Last Ordered Date First Orde red Date DISCHARGE PATIENT 1 12/03/2022 CORE MEASURES Count Last Ordered Date First Ord ered Date REASON FOR NO VTE PROPHYLAXIS AT ADMISSION 1 11/30/2022 documented in this encounter Additional Health Concerns Infection Onset Date Last Indicated Resolved Time MRSA Comment:Toe 11/08/22, 12/12/22 11/08/2022 12/12/2022 06/10/2023 3:05 AM RAT CULTURIST documented as of this encounter Care Teams Industrial Engineering Intern Relationship Specialty Start Date End Date Duane Corcoran MD PCP - General Family Medicine 08/30/19 Mark Queen MD Consulting Physician Infectious Diseases 01/10/20 Anam Costa LCSW Sole Filler 08/08/22 02/18/23 Melania Lee RN [address] [place] [address] [address] [place] [address] Academic Interventionist 08/22/22 12/07/22 Shwetha Rahman MD [address] [facility] [address] [place] [address] Consulting Physician Infectious Diseases 12/05/22 Lizett Edwards MD [address] [facility] [address] [place] [address] Consulting Physician Nephrology 12/05/22 documented as of this encounter
--- OUTSIDE RECORDS SUMMARY | 2024-07-04 04:10 | XMS_ITS | Encounter Summary ---
Author Organization [facility] Healthcare Address [address] [place] [address] Care Team Providers Care Police Liaison Officer Name Role Phone Cherelle Corcoran MD Primary Care Pro vider Mark Queen MD Unavailable [phone] Anam Costa LCSW Unavailable UnavailMelania Rae RN Unavailable [phone] Reason for Visit * Reason Comments OT Progress Note Re-certification Encounter Details Date Type Department Care Team (Late st Contact Info) Description 11/19/2022 4:00 PM CDT Therapy [facility] OP Occup Therapy [address] [place] [id number] Alison Silverio, MOE Parkinsonism, unspecified Parkinsonism type (HCC) (Primary Dx) Social History Tobacco Use [...] week 11/11/2022 How often do you attend chur ch or church services? More than 4 times [...] slept in a alf (including now)? No 11/11/2022 Comments No Sex and Gender Information Value Date Recorded Sex Assigned at Not on file Legal Sex Female 9:03 AM QUALITY CONTROL AUDITOR Gender Identity Female 02/08/2020 6:39 PM CDT Sexual Orientation Not on file documented as of this encounter Progress Notes * Alison Silverio, OT - 11/19/2022 4:00 PM CDT Images from the original note were not included. OCCUPATIONAL THERAPY RE CERTIFICATION 11/19/2022 Time In: 1600 Time Out: 1700 Total minutes: 60 MINUTES Barbara Chakraborty 1950 72 y.o. ICD-9-CM ICD-10-CM 1. Parkinsonism, unspecified Parkinsonism type (HCC) 332.0 G20 Past Medical History: Diagnosis Date Arthritis Dementia (HCC) Depression Diabetic neuropathy (HCC) Hyperlipidemia Hypertension Renal disorder Schizophrenia (HCC) Type 2 diabetes mellitus (HCC) Past Surgical History: Procedure Laterality Date SECTION Right right foot TOE AMPUTATION Right 01/06/2020 4th toe amp/ foot debridement/ Dr. Anat Pelayo Medical History/comorbidities/prior diagnostic imaging and results: CT on 05/08/22: Reversal of theusual cervical lordosis. Severe multilevel degenerative changes of the cervical spine, with multilevel disc height loss. There is up to moderate-severe degenerative neuroforaminal and canal narrowing. 10/27/2022: Pt returns to OT services on this date. Pt experienced ED admission r/t UTI f/b 3 days inpatient stay. Pt has been attending weekly wound clinic visits for her foot and infusions for kidneys/HgB levels. Pt/daughter wishes to return to OT services to address Parkinsonism, functional mobility, functional transfers, and ADL/IADL performance/participatoin within the home and community. 11/19/2022: Pt returns to OT at this time following recent hospital stay for sore on foot. Pt is nowin [facility] in [employer] due to patient needing IV antibiotics. After talking to dtr on phone, she reports she is receiving PT/OT/ST at this time and educated dtr we are unable to duplicate services and pt's cognitive status does not warrant outpatient OT at this time either, dtr Areli verbalizes understanding. SUBJECTIVE Patient report of: initial symptoms: resting hand tremors Current symptoms: tremors and rigidity/stiffness Location of symptoms:right hand greater than left, both with tremors, flexed posture with tightnessin neck/shoulders. Precautions: fall Pain: 8/ left, hip, knee, and ankle moderate, consistent, daily, and progressive reports left side of trunk and legs uses Tylenol for pain Therapy history: Pt is getting PT 3x weekly while staying at [facility] Prior therapy for same diagnosis: yes, however, has had to miss appointments due to health concernsand hospital stays. Hand dominance: RIGHT Arm reported as affected: RIGHT Falls: one fall in kitchen using w/w; reports not too many near misses 10/27/2022: No falls reported in last 2 months. Medication: daughter sets up all medicines and reminds patient for all medicines/supervision over 5pills, assistance with set-up, assistance to open containers, and requires cues/assistance to remember to take pills How do PD medications help: has not started taking medications; reports mobility skills get harder as the day goes along Prior Level of Function: Patient has been using the w/w for 2-3 years when patient moved in with her daughter, patient was independent dressing self. Pt is now staying at [facility] and is unableto report if she is walking. She comes in [facility] at this time to appointment with PIE DOUGH ROLLER from [facility] and no family member present. Changes in function that impact ADLS: general decline due to recent hospital stays and is now staying at a SNF due to patient needing IV antibiotics. OT roles/occupations: mother/grandmother Lives with: child/children- daughter Areli and granddaughter stays with her when daughter works. Plans to return home once d/c from [facility]. Home environment: one level home; bedroom and bathroom on main level; tub/shower, tub chair, and onmain floor Obstacles in home environment: carpet in bedroom Medicine Management: over 5 pills, assistance with set-up, and requires cues/assistance to rememberto take pills Driving: no, restricted Mobility: wheeled walker In home: uses w/w at all times unless she tries to carry something In Community: w/w or w/c ADLS Feeding: Pt reports dropping food occasionally due to tremors. Pt reports sometimes has to use bothhands to feed self due to tremors to hold onto food. Oral Care/Grooming: Pt reports she brushes her own dentures, but needs to get a new set. Bathing and Dressing: Pt reports she is getting dressed at this time by herself. Pt has hospital socks on at this date and reports putting them on indep. At [facility] patient has a shower room and has assist/supervision from PIE DOUGH ROLLER PRN. Has shower chairs and grab bars in the shower room at this time. Toileting: Pt reports she is able to complete toilet transfers without assistance. Pt reports she is able to wipe self indep. Bed/Car/Toilet Transfers: Completed sit to stand transfer from [facility] on this date with SBA for safety. Unable to report needing assistance in/out of car or any other transfers. Meal Preparation: Pt reports she is able to propel self in w/c or walk to dinners provided by facility. Handwriting/computer: no use of cell phone or computer Phone use: uses home phone; patient does not remember 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s; daughter reports she forgets to hang up Leisure Activities: enjoy: playing cards and board games given up: has not played in a long time Activity: limited with activity Other: confusion and difficulty attending at times during evaluation Patient goal: I want to get stronger. : PIE DOUGH ROLLER present at this time, but no family member to report goals. OBJECTIVE MEASUREMENT: Shoulder AROM PROM Strength comment Right Flexion 113 Right Extension Right Abduction 113 Right Adduction Right IR Right ER Left Flexion 110 Left Extension Left Abduction 115 Left Adduction Left IR Left ER Elbow Right Flexion 145 Right Extension Able to extend fully Left Flexion 141 Left Extension Able to fully extend Wrist Right Flexion WFL Right Extension WFL Left Flexion WFL Left Extension WFL Supination/pronation: BUE AROM WFL for ADL/IADL skills B digit flexion/extension: WFL, able to make full fist for grasp B digit opposition: SF with B hands. SBT: scores 23 on this date which correlates to Impairment Consistent with Dementia. TREATMENT/EDUCATION PROVIDED: Pt seen for OT evaluation on this date with PIE DOUGH ROLLER present from [facility] in [employer] where patient has been staying since d/c in the hospital. See above for findings. ASSESSMENT: Problem Areas Identified as follows: DECREASED FEEDING SKILLS, DECREASED GROOMING SKILLS, DECREASED BATHING SKILLS, DECREASED DRESSING SKILLS, DECREASED FUNCTIONAL TRANSFERS, DECREASED FUNCTIONAL MOBILITY, DECREASED COGNITION, DECREASEDSAFETY AWARENESS, DECREASED GROSS MOTOR SKILLS, DECREASED ENDURANCE, DECREASED STANDING BALANCE, DECREASED UE STRENGTH, DECREASED AROM , DECREASED PROM, DECREASED HAND STRENGTH, and DECREASED FINE MOT OR SKILLS Pt presents with above listed problem areas and decreased cognition which at this time will result in decreased carry over of any tasks learned in therapy. Pt is being seen for all services at [facility] during stay due to IV antibiotics needed for infection. STGS to be met by N/A LTGS to be met by N/A PLAN: Skilled outpatient OT not warranted at this time due to cognitive status and patient receiving OT/PT/ST at [facility] that patient is staying at. Dtr Areli called and notified and reported she is receiving all services. Educated dtr we cannot see her at this time, with dtr reporting understanding. Alison Silverio OTR/L [facility] [email or web address] documented in this encounter Plan of Treatment Upcoming Encounters Date Type Department Care Team (Latest Contact Info) Description 07/13/2024 9:00 AM [facility] Hospital Encounter [facility] [address] [place] [address] Jaya Grier MD [address] [place] [address] DR GAINES [address] [place] [phone] 07/13/2024 9:00 AM QUALITY CONTROL AUDITOR - 07/13/2024 9:30 AM QUALITY CONTROL AUDITOR Surgery [facility] [address] [place] [address] Jaya Grier MD [facility] [address] GAINES [address] [place] [id number] ESOPHAGOGASTRODUODENOSCOPY Scheduled Procedures Name Priority Associated Diagnoses Date/Ti me ESOPHAGOGASTRODUODENOSCOPY Anemia, unspecified type Gastritis without bleeding, unspecified chronicity, unspecified gastritis type 07/13/2024 9:00 AM QUALITY CONTROL AUDITOR COLONOSCOPY Iron deficiency anemia due to chronic blood loss documented as of this encounter Visit Diagnoses Diagnosis Parkinsonism, unspecified Parkinsonism type (HCC)- Primary Anemia, unspecified type Gastritis without bleeding, unspecified chronicity, unspecified gastritis type documented in this encounter Additional Health Concerns Infection Onset Date Last Indicated Resolved Time MRSA Comment:Toe 11/08/22, 12/12/22 11/08/2022 12/12/2022 06/10/2023 3:05 AM QUALITY CONTROL AUDITOR documented as of this encounter Care Teams Police Liaison Officer Relationship Specialty Start Date End Date Cherelle Corcoran MD PCP - General Family Medicine 08/30/19 Mark Queen MD Consulting Physician Infectious Diseases 01/10/20 Anam Costa LCSW Nurses Educator 08/08/22 02/18/23 Melania Lee, RN [address] [place] [address] DR GAINES [address] [place] [address] Skimmer 08/22/22 12/07/22 documented as of this encounter
--- OUTSIDE RECORDS SUMMARY | 2024-07-04 04:11 | XMS_ITS | Encounter Summary ---
Author Organization [facility] Group Address [address] [place] [address] Care Team Providers Care Knitting Demonstrator Name Role Phone Cherelle Corcoran MD Primary Care Pro vider Mark Queen MD Unavailable [phone] Anam CostaW Unavailable UnavailMelania Rae RN Unavailable [phone] Reason for Visit * Reason Onset Date Comments Back Pain 09/04/2022 Leg Pain 09/04/2022 Wound Check 09/04/2022 Encounter Details Date Type Department Care Team (Late st Contact Info) Description 09/04/[address] [facility] Primary Care [facility] [facility] [address] [place] [address] Marii Garcia, RN Social History Tobacco Use Types Packs/Day [...] neighbors? More than three times a week 08/08/2022 How often do you get togethe r with friends or relatives? More than three times a week 08/08/2022 How often do you attend chur ch or congregation services? More than 4 times per year 08/08/2022 Do you belong to any clubs o r organizations such as moravian groups, unions, fraternal or athletic groups, or school groups? No 08/08/2022 How often do you attend meet ings of the clubs or organizations you belong to? Never 08/08/2022 Are you , , di vorced, , never , or living with a partner? 08/08/2022 AUDIT-C Answer Date Recorded Q1: How often do you have a drink containing alc ohol? Never 02/12/2022 Average Number of Drinks Not on file 022 Frequency of Binge Drinking Not on file 01/21 Overall Financial Resource Strain (CARDIA) Answe r Date Recorded How hard is it for you to pa y for the very basics like food, housing, medical care, and heating? Not very hard 08/08/2022 PHQ-2 Answer Date Recorded PHQ-2 Total Score (If total score is 3 or more points, staff should administer the PHQ-9) 0 06/09/2022 Hunger Vital Sign Answer Date Recorded Within the past 12 months, y ou worried that your food would run out before you got the money to buy more. Never true 08/05/19 23 Within the past 12 months, t he food you bought just didn't last and you didn't have money to get more. Never true 08/05/2022 PRAPARE - Transportation Answer Date Re corded In the past 12 months, has l ack of transportation kept you from medical appointments or from getting medications? No 07/23 In the past 12 months, has l ack of transportation kept you from meetings, work, or from getting things needed for daily living? No 08/08/2022 Housing Stability Vital Sign Answer Fuentes e Recorded In the last 12 months, was t here a time when you were not able to pay the mortgage or rent on time? No 08/08/2022 In the last 12 months, how many places have you lived? 1 08/08/2022 In the last 12 months, was t here a time when you did not have a steady place to sleep or slept in a fdc (including now)? No 08/08/2022 Comments No Sex and Gender Information Value Date Recorded Sex Assigned at Not on file Legal Sex Female 9:03 AM CLINICAL TECH Gender Identity Female 02/08/2020 6:39 PM CDT Sexual Orientation Not on file documented as of this encounter Miscellaneous Notes * Telephone Encounter - Marii Garcia RN - 09/04/2022 8:30 AM CDT Patient's daughter, Areli, called on patient's behalf;on HIPAA form. Reports that patient is having lower back pain radiating into both her legs and weakness in both her legs. Pain currently rated as 8/10. Reports that she is having difficulty walking and legs are trying to give out. Reports patient is walking hunched over. Reports that patient has chronic back issues but usually only this badif she has infection or elevated Explosives Detonator per daughter. Patient is concerned about infection to right great toe wound. reports wound was previously on tip of her toe but is now going down the side of her toe. Reports that area is open and draining serosanguinous fluid. Around opening is darkened area. Daughter reports when she got home yesterday patient had on tennis shoes without dressing covering wound or socks on. Reports that wound appeared dirty at that time. Temperature this morning was 99.0F.Denies diminished urination, blood in urine, dark urine, fever, headaches. Reports patient has podiatry appointment at 1630 today. Daughter scheduled patient at wound clinic next week. PCP contacted via secure chat for ED disposition consult. Recommendation from provider:Proceed to ED. Patient's daughter informed of PCP recommendation to go to ED; caller agreeable. Advised to call back with any questions or concerns. Caller stated understanding. Reason for Disposition Weakness of a leg or foot (e.g., unable to bear weight, dragging foot) Patient wants to be seen Protocols used: Back [id number], Wound [id number] * Telephone Encounter - Reanna Zimmerman RN - 09/04/2022 8:06 AM CDT Regarding: Severe back & leg pain / open wound on right toe (worsening) / elevated Creatine level ----- Message from Paola Corey sent at 09/04/2022 8:05 AM CDT ----- Symptom Based Call Caller's Callback #: [phone] Chief Complaint(s): Severe back & leg pain / open wound on right toe (worsening) / elevated Creatine level Duration: 2 weeks What type of symptom(s) is the patient experiencing? Red Flag. Is the patient concerned they are experiencing a medical emergency requiring an ambulance? No Additional Comments: Per daughter, patient had a bloodshot on right toe and picked it while at podiatry appointment... wound now worsening and affecting her mobility; daughter believes pt's creatine level is up due to wound. Seeking assistance from practice. Does message need to be routed?Yes-Action Needed documented in this encounter Plan of Treatment Upcoming Encounters Date Type Department Care Team (Latest Contact Info) Description 07/13/2024 9:00 AM CLINICAL TECH Hospital Encounter [facility] [address] [place] [address] Jaya Grier MD [address] [place] [address] DR GAINES [address] [place] [phone] 07/13/2024 9:00 AM CLINICAL TECH - 07/13/2024 9:30 AM CLINICAL TECH Surgery [facility] [address] [place] [address] Jaya Grier MD [address] [place] [address] DR GAINES [address] [place] [address] ESOPHAGOGASTRODUODENOSCOPY Scheduled Procedures Name Priority Associated Diagnoses Date/Ti ga ESOPHAGOGASTRODUODENOSCOPY Anemia, unspecified type Gastritis without bleeding, unspecified chronicity, unspecified gastritis type 07/13/2024 9:00 AM CLINICAL TECH COLONOSCOPY Iron deficiency anemia due to chronic blood loss documented as of this encounter Visit Diagnoses Not on filedocumented in this encounter Care Teams Knitting Demonstrator Relationship Specialty Start Date End Date Cherelle Corcoran MD PCP - General Family Medicine 08/30/19 Mark Queen MD Consulting Physician Infectious Diseases 01/10/20 Anam Costa LCSW Water Resources Project Manager 08/08/22 02/18/23 Melania Lee RN [address] [place] [address] [address] [place] [address] Ceo 08/22/22 12/07/22 documented as of this encounter
--- OUTSIDE RECORDS SUMMARY | 2024-07-04 04:11 | XMS_ITS | Encounter Summary ---
Author Organization [facility] Address [address] [place] [address] Care Team Providers Care Printed Circuit Boards Stripper Etcher Name Role Phone Cherelle Corcoran MD Primary Care Pro vider Mark Queen MD Unavailable [phone] Anam CostaW Unavailable Unavailabl Melania Moncada RN Unavailable [phone] Reason for Visit * Reason Onset Date Comments Forms Request 09/15/2022 Encounter Details Date Type Department Care Team ([facility] Contact Info) Description 09/15/2022 Telephone [facility] Primary Care [address] [facility] [address] [place] [address] Cherelle Corcoran MD [address] [place] [address] Forms Request Social History Tobacco Use [...] neighbors? More than three times a week 10/03/2022 How often do you get togethe r with friends or relatives? More than three times a week 10/03/2022 How often do you attend chur or nondenominational services? More than 4 times per year 10/03/2022 Do you belong to any clubs o r organizations such as voodoo groups, unions, fraternal or athletic groups, or school groups? No 10/03/2022 How often do you attend meet ings of the clubs or organizations you belong to? Never 10/03/2022 Are you , , di vorced, , never , or living with a partner? 10/03/2022 AUDIT-C Answer Date Recorded Q1: How often [...] medical care, and heating? Not very hard 10/03/2022 PHQ-2 Answer Date Recorded PHQ-2 Total Score (If total score is 3 or more points, staff should administer the PHQ-9) 0 06/09/2022 Hunger Vital Sign Answer Date Recorded Within the past 12 months, y ou worried that your food would run out before you got the money to buy more. Never true 10/04/19 23 Within the past 12 months, t he food you bought just didn't last and you didn't have money to get more. Never true 10/03/2022 PRAPARE - Transportation Answer Date Re corded In the past 12 months, has l ack of transportation kept you from medical appointments or from getting medications? No 09/20 In the past 12 months, has l ack of transportation kept you from meetings, work, or from getting things needed for daily living? No 10/03/2022 Housing Stability Vital Sign Answer Fuentes e Recorded In the last 12 months, was t here a time when you were not able to pay the mortgage or rent on time? No 10/03/2022 In the last 12 months, how many places have you lived? 1 10/03/2022 In the last 12 months, was t here a time when you did not have a steady place to sleep or slept in a penitentiary (including now)? No 10/03/2022 Comments No Sex and Gender Information Value Date Recorded Sex Assigned at Not on file Legal Sex Female 9:03 AM WELDING MACHINE OPERATOR ELECTRON BEAM Gender Identity Female 02/08/2020 6:39 PM CDT Sexual Orientation Not on file documented as of this encounter Miscellaneous Notes * Telephone Encounter - Sandy Mota MA - 09/15/2022 3:46 PM CDT Spoke with pt daughter and she is aware that paperwork has been faxed. * Telephone Encounter - Dana Mike MA - 09/15/2022 1:34 PM CDT Call Back Caller???s Concern: Pt's daughter Areli (on HIPPA) calling to see if the revised FMLA paperwork was faxed to her HR department. She doesn't have fax number but stated it's the same one that is on the forms that office already has. Areli would like a callback when you're ready to fax the forms. So her HR department can look for them. She needs them by today. Sending high priority. Caller???s Call back #: [phone] Does message need to be routed? Yes-Action Needed documented in this encounter Plan of Treatment Upcoming Encounters Date Type Department Care Team (Latest Contact Info) Description 07/13/2024 9:00 AM WELDING MACHINE OPERATOR ELECTRON BEAM Hospital Encounter [facility] [address] [place] [address] Jaya Grier MD [address] [address] 07/13/2024 9:00 AM WELDING MACHINE OPERATOR ELECTRON BEAM - 07/13/2024 9:30 AM WELDING MACHINE OPERATOR ELECTRON BEAM Surgery [facility] [address] [place] [address] Jaya Grier MD [address] [facility] [address] [place] [address] ESOPHAGOGASTRODUODENOSCOPY Scheduled Procedures Name Priority Associated Diagnoses Date/Ti me ESOPHAGOGASTRODUODENOSCOPY Anemia, unspecified type Gastritis without bleeding, unspecified chronicity, unspecified gastritis type 07/13/2024 9:00 AM WELDING MACHINE OPERATOR ELECTRON BEAM COLONOSCOPY Iron deficiency anemia due to chronic blood loss documented as of this encounter Visit Diagnoses Not on filedocumented in this encounter Additional Health Concerns Infection Onset Date Last Indicated Resolved Time COVID: Suspected 10/02/2022 10/02/2022 10/02/2022 8:14 PM CDT documented as of this encounter Care Teams Printed Circuit Boards Stripper Etcher Relationship Specialty Start Date End Date Cherelle Corcoran MD PCP - General Family Medicine 08/30/19 Mark Queen MD Consulting Physician Infectious Diseases 01/10/20 Anam Costa LCSW Accessibility Lift Technician 08/08/22 02/18/23 Melania Lee RN [address] [place] [address] [address] [place] [address] Revenue Liaison 08/22/22 12/07/22 documented as of this encounter
--- OUTSIDE RECORDS SUMMARY | 2024-07-04 04:11 | XMS_ITS | Encounter Summary ---
Author Organization [facility] Healthcare Address [address] [place] [address] Care Team Providers Care Grain And Yeast Plants Supervisor Name Role Phone Cherelle Corcoran MD Primary Care Pro vider Mark Queen MD Unavailable [phone] Anam CostaW Unavailable UnavailMelania Rae RN Unavailable [phone] Reason for Visit * Reason Comments OT Treatment Encounter Details Date Type Department Care Team (Late st Contact Info) Description 09/18/2022 8:00 AM CDT Therapy [facility] OP Occup Therapy [address] [place] [id number] Alison Silverio OT Parkinsonism, unspecified Parkinsonism type (HCC) (Primary Dx) [...] have a drink containing alc ohol? Never 09/10/2022 Average Number of Drinks Not on file 023 Frequency of Binge Drinking Not on file 08/21 Overall Financial Resource Strain (CARDIA) Answe r [...] in a group home (including now)? No 08/08/2022 Comments No Sex and Gender Information Value Date Recorded Sex Assigned at Not on file Legal Sex Female 9:03 AM LUNG PULLER Gender Identity Female 02/08/2020 6:39 PM CDT Sexual Orientation Not on file documented as of this encounter Progress Notes * Alison Silverio, OT - 09/18/2022 8:00 AM CDT Images from the original note were not included. OCCUPATIONAL THERAPY Treatment note 09/18/2022 Time In: 814 Time out: 09 Total Treatment time: 45 minutes Barbara Chakraborty 1950 71 y.o. female Cherelle Corcoran MD [facility] [address] ICD-9-CM ICD-10-CM 1. Parkinsonism, unspecified Parkinsonism type (HCC) 332.0 G20 TREATMENT DIAGNOSIS: decreased balance, decreased ADL/IADL skills, decreased BUE ROM/strength/endurance/coordination, decreased amplitude, decreased safety, decreased functional transfers, decreased functional mobility SUBJECTIVE: Patient reports: I usually just sit in my recliner. Pain: 0/10 Pain Location: None None Falls since last treatment session: No Time of last Parkinson's medication taken: Not discussed Precautions: fall OBJECTIVE: Exercise Completed: Adapted seated exercises Exercise Reps Cue level for amplitude of movement Shaping required Demonstration of movement needed Comments Floor to Ceiling 8 mod yes yes Side to Side 8 mod yes yes Forward Step and Reach 8 mod yes yes Sideways Step and Reach 8 mod yes yes Backward Step and Reach 8 mod yes yes Forward Rock and Reach 8 mod yes yes Max difficulty noted Sideways Rock and Reach Not completed on this date FUNCTIONAL COMPONENTS IDENTIFIED: Functional Component Movements Cues Assist Sit to stand completed x 5 with 1 hand assist to push off from chair on this date and min cues for increased amplitude with standing posture SBA Supine to sit to eob 3. Self-feeding 4. handwriting 5. Getting up from a chair HIERARCHIES IDENTIFIED: Hierarchies Cues Assist Walking through congested area with w/w Getting in/out of a car Carrying an item with w/w PT was educated on towel slide HEP for increased BUE ROM including B shoulder flexion/extension, B shoulder horizontal adduction/abduction, and B shoulder CCW/CW circles. Good understanding noted with targets issued for increased ROM. Handout issued for reference. ASSESSMENT: PT tolerated treatment session well on this date. Demonstrates good understanding of towel slides on this date, will benefit from 1 more trial for increased carry over. Benefits from targets for increased ROM. Requires increased cues for seated exercises on this date and demonstrates max difficulty coordinating forward rock and reach on this date. Pt will con't to benefit from skilledOT to increase amplitude,coordination, functional mobility, functional transfers, safety, and quality of life. STGS to be met by 09/30/22 1. Patient complete putty exercises with SBA/min cues for hand strengthening. 2. Patient will complete table slides with BUES with SBA from caregiver for improved shoulder ROM. (Issued 09/18/2022) 3. Patient to complete seated LSVT BIG exercises with min assist for safety/body position x 4-6 reps each. (Progressing- needs increased cues) LTGS to be met by 10/28/22 1. Patient to complete supine to sit to EOB with min assist using larger amplitude movements. 2. Patient to complete simulated self-feeding with adaptive equipment as needed for decreased spillage. 3. Patient to complete car transfer with assist of caregiver with minimal assist demonstrating larger amplitude movements. 4. Patient will navigate through furniture in waiting room using w/w with no assistance for managing walker. Plan: Con't OT POC Frequency/duration of OT treatment: 2 times per week for 8-10 weeks Certification dates from 09/02/2022 to 2022. Order expiration: 2022 Next progress/re-cert due: 09/30/2022 Alison Silverio OTR/L [facility] [email or web address] documented in this encounter Plan of Treatment Upcoming Encounters Date Type Department Care Team (Latest Contact Info) Description 07/13/2024 9:00 AM LUNG PULLER Hospital Encounter [facility] [address] [place] [address] Jaya Grier MD [address] [facility] [address] [address] 07/13/2024 9:00 AM LUNG PULLER - 07/13/2024 9:30 AM LUNG PULLER Surgery [facility] [address] [place] [address] Jaya Grier MD [address] [facility] [address] [place] [address] ESOPHAGOGASTRODUODENOSCOPY Scheduled Procedures Name Priority Associated Diagnoses Date/Ti me ESOPHAGOGASTRODUODENOSCOPY Anemia, unspecified type Gastritis without bleeding, unspecified chronicity, unspecified gastritis type 07/13/2024 9:00 AM LUNG PULLER COLONOSCOPY Iron deficiency anemia due to chronic blood loss documented as of this encounter Visit Diagnoses Diagnosis Parkinsonism, unspecified Parkinsonism type (HCC)- Primary Anemia, unspecified type Gastritis without bleeding, unspecified chronicity, unspecified gastritis type documented in this encounter Care Teams Grain And Yeast Plants Supervisor Relationship Specialty Start Date End Date Cherelle Corcoran MD PCP - General Family Medicine 08/30/19 Mark Queen MD Consulting Physician Infectious Diseases 01/10/20 Anam Costa LCSW Stock And Station Agent 08/08/22 02/18/23 Melania Lee RN [address] [place] [address] [address] [place] [address] Spray Gun Sizer 08/22/22 12/07/22 documented as of this encounter
--- OUTSIDE RECORDS SUMMARY | 2024-07-04 04:11 | XMS_ITS | Encounter Summary ---
Author Organization [facility] Address [address] [facility] [address] [place] [address] Phone Care Team Providers Care Electro Mechanic Name Role Phone Cherelle Corcoran MD Primary Care Pro vider Mark Queen MD Unavailable [phone] Anam Costa LCSW Unavailable UnavailMelania Rae RN Unavailable [phone] Reason for Visit * Reason Onset Date Comments Specialty Med Equip cherry 10/30/2022 Encounter Details Date Type Department Care Team (Late st Contact Info) Description 10/30/2022 Telephone [facility] Endocrinology Metabolism and Lipid [address] [facility] Advanced Medicine 13th [place] [address] [place] [address] Anant Kauffman MD [address] [facility] [id number] [place] [address] Specialty Med Equip cherry Social History Tobacco Use Types Packs/Day Years [...] 10/03/2022 How often do you attend chur ch [...] slept in a snf (including now)? No 10/03/2022 Comments No Sex and Gender Information Value Date Recorded Sex Assigned at Not on file Legal Sex Female 9:03 AM STOCKROOM COORDINATOR Gender Identity Female 02/08/2020 6:39 PM CDT Sexual Orientation Not on file documented as of this encounter Miscellaneous Notes * Telephone Encounter - Maddie Romero RMA - 10/30/2022 1:52 PM CDT Images from the original note were not included. * Telephone Encounter - Maddie Romero RMA - 10/30/2022 1:40 PM CDT Images from the original note were not included. documented in this encounter Plan of Treatment Upcoming Encounters Date Type Department Care Team (Latest Contact Info) Description 07/13/2024 9:00 AM STOCKROOM COORDINATOR Hospital Encounter [facility] GI Lab [address] [place] [address] Jaya Grier MD [address] [facility] [address] [place] [address] 07/13/2024 9:00 AM STOCKROOM COORDINATOR - 07/13/2024 9:30 AM STOCKROOM COORDINATOR Surgery [facility] [address] [place] [address] Jaya Grier MD [address] [facility] [address] [place] [address] ESOPHAGOGASTRODUODENOSCOPY Scheduled Procedures Name Priority Associated Diagnoses Date/Ti me ESOPHAGOGASTRODUODENOSCOPY Anemia, unspecified type Gastritis without bleeding, unspecified chronicity, unspecified gastritis type 07/13/2024 9:00 AM STOCKROOM COORDINATOR COLONOSCOPY Iron deficiency anemia due to chronic blood loss documented as of this encounter Visit Diagnoses Not on filedocumented in this encounter Care Teams Electro Mechanic Relationship Specialty Start Date End Date Cherelle Corcoran MD PCP - General Family Medicine 08/30/19 Mark Queen MD Consulting Physician Infectious Diseases 01/10/20 Anam Costa LCSW Solution Advisor 08/08/22 02/18/23 Melania Lee RN [address] [place] [address] [address] Hot Mill Worker 08/22/22 12/07/22 documented as of this encounter
--- OUTSIDE RECORDS SUMMARY | 2024-07-04 04:11 | XMS_ITS | Encounter Summary ---
Author Organization [facility] Address [address] [place] [address] Care Team Providers Care Facilities And Grounds Director Name Role Phone Cherelle Corcoran MD Primary Care Pro vider Mark Queen MD Unavailable [phone] Anam CostaW Unavailable Unavailabl Melania Moncada RN Unavailable Reason for Visit * Reason Onset Date Comments Appointment Request 09/09/2022 Encounter Details Date Type Department Care Team ([facility] Contact Info) Description 09/09/2022 Telephone [facility] Primary Care [address] [facility] [address] [place] [address] Cherelle Corcoran MD [address] [place] [address] Appointment Request Social History Tobacco Use [...] slept in a mcc (including now)? No 08/08/2022 Comments No Sex and Gender Information Value Date Recorded Sex Assigned at Not on file Legal Sex Female 9:03 AM MERCHANDISING ASSISTANT Gender Identity Female 02/08/2020 6:39 PM CDT Sexual Orientation Not on file documented as of this encounter Miscellaneous Notes * Telephone Encounter - Nikki Vargas - 09/09/2022 4:16 PM CDT Scheduled * Telephone Encounter - Brigid Franz - 09/09/2022 3:49 PM CDT Appointment Request What visit type does the patient need? Visit Type: Established Patient What is the reason for the visit? Er follow-up, Patient had an open wound on her toe What is the reason we were unable to schedule the appointment? Current appointment availability didnot meet patient's need. Patient was scheduled for today but had to cancel because when her son went to pick her up she was not ready. Daughter Honey called to schedule an appointment for tomorrow.No appointments were available Honey requested to see if she could see if she could get her in tomorrow. If applicable, were all members of the patient's PCP care team offered (e.g., nurse practioner(s), physician press operator assistant(s)) ? N/A Caller's Callback #: [phone] Additional Comments: na Does message need to be routed? Yes-Action Needed documented in this encounter Plan of Treatment Upcoming Encounters Date Type Department Care Team (Latest Contact Info) Description 07/13/2024 9:00 AM MERCHANDISING ASSISTANT Hospital Encounter [facility] [address] [place] [address] Jaya Grier MD [facility] [address] [address] 07/13/2024 9:00 AM MERCHANDISING ASSISTANT - 07/13/2024 9:30 AM MERCHANDISING ASSISTANT Surgery [facility] Lab [address] [place] [address] Jaya Grier MD [address] [facility] [address] [place] [address] ESOPHAGOGASTRODUODENOSCOPY Scheduled Procedures Name Priority Associated Diagnoses Date/Ti me ESOPHAGOGASTRODUODENOSCOPY Anemia, unspecified type Gastritis without bleeding, unspecified chronicity, unspecified gastritis type 07/13/2024 9:00 AM MERCHANDISING ASSISTANT COLONOSCOPY Iron deficiency anemia due to chronic blood loss documented as of this encounter Visit Diagnoses Not on filedocumented in this encounter Care Teams Facilities And Grounds Director Relationship Specialty Start Date End Date Cherelle Corcoran MD PCP - General Family Medicine 08/30/19 Mark Queen MD Consulting Physician Infectious Diseases 01/10/20 Anam Costa LCSW Life Care Planner 08/08/22 02/18/23 Melania Lee RN [address] [place] [address] [address] [place] [address] Silk Blocker 08/22/22 12/07/22 documented as of this encounter
--- OUTSIDE RECORDS SUMMARY | 2024-07-04 04:11 | XMS_ITS | Encounter Summary ---
Author Organization [facility] Address [address] [place] [address] Care Team Providers Care Commercial Lending Assistant Name Role Phone Cherelle Corcoran MD Primary Care Pro vider Mark Queen MD Unavailable [phone] Anam Costa LCSW Unavailable Unavailabl Melania Moncada RN Unavailable [phone] Reason for Referral * Diagnostic Imaging (Routine) - Closed Specialty Diagnoses / Procedures Referred By Contac t Referred To Contact Diagnoses Left leg DVT (HCC) Procedures US VEIN DUPLEX LOWER EXTREMITY LEFT LIMITED, UNILATERAL Cherelle Corcoran MD Phone: tel: fax: [facility] [address] [place] [phone] Referral ID Status Reason Start Date Expiration Date Visits Re quested Visits Authorized [id number] Closed 10/10/2022 11/09/2023 1 1 Reason for Visit * Reason Comments Hospital Follow Up Encounter Details Date Type Department Care Team (Late st Contact Info) Description 10/10/2022 10:00 AM CDT Office Visit [facility] Primary Care [address] [place] [address] Cherelle Corcoran MD [address] [address] [place] [address] Toe necrosis (CMS/HCC) (HCC) (Primary Dx); Type 2 diabetes mellitus with diabetic neuropathy, with long-term current use of insulin (CMS/HCC) (HCC); Other diabetic neurological complication associated with type 2 diabetes mellitus (HCC); Hypertension associated with diabetes (HCC); Hyperlipidemia associated with type 2 diabetes mellitus (HCC); 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 2 diabetes mellitus (CMS/HCC) (HCC); Left leg DVT (CMS/HCC) (HCC); Late onset Alzheimer's dementia without behavioral disturbance (HCC); Parkinsonism, unspecified Parkinsonism type (HCC); Schizoaffective disorder, bipolar type (CMS/HCC) (HCC); Wheezing Social History Tobacco Use Types Packs/Day Years [...] week 10/03/2022 How often do you attend [facility] or rastaf[facility] services? More than 4 times [...] slept in a [facility] (including now)? No 10/03/2022 Comments No Sex and Gender Information Value Date Recorded Sex Assigned at Not on file Legal Sex Female 9:03 AM ALIGNER TYPEWRITER Gender Identity Female 02/08/2020 6:39 PM CDT Sexual Orientation Not on file documented as of this encounter Last Filed Vital Signs Vital Sign Reading Time Taken Comments Blood Pressure 144/80 10/10/2022 10:01 AM CDT Pulse 86 10/10/2022 10:01 AM CDT Temperature 36.3 ??C (97.3 ??F) 10/10/2022 10:01 AM C DT Respiratory Rate 18 10/10/2022 10:01 AM CDT Oxygen Saturation 98% 10/10/2022 10:01 AM CDT Inhaled Oxygen Concentration - - Weight 69.5 kg (153 lb 3.2 oz) 10/10/2022 10:01 AM CDT Height 157.5 cm (5' 2 ) 10/10/2022 10:01 AM CDT Body Mass Index 28.02 10/10/2022 10:01 AM CDT documented in this encounter Patient Instructions * Patient Instructions* Cherelle Corcoran MD - 10/10/2022 10:00 AM CDT Call central scheduling at [phone] to schedule brain MRI & left leg ultrasound documented in this encounter Ordered Prescriptions Prescription Sig Dispense Quantity Refills Last Filled Start Date End Date acetaminophen (TYLENOL) 325 mg tablet Take 2 tablets (650 mg total) by mouth every 6 (six) hours as needed for pain 30 tablet 1 10/10/2022 3 documented in this encounter Progress Notes * Cherelle Corcoran MD - 10/10/2022 10:00 AM CDT Images from the original [...] I have noted any changes. Admission Date: 10/02/22 Discharge Date: 10/06/22 Date of Initial Post-discharge Interactive Contact: 10/07/22 Complexity of Medical Decision Making: moderate Metabolic Lab Results: Body mass index is 28.02 kg/m??. Glucose: Glucose Date Value Ref Range Status 10/06/2022 138 70 - 199 mg/dL Final Comment: Interpretive [...] Glucose, POC Date Value Ref Range Status 10/06/2022 213 (H) 70 - 199 mg/dL Final Lab Results Component Value Date WBC 8.1 10/06/2022 HGB 8.6 (L) 10/06/2022 HCT 28.1 (L) 10/06/2022 MCV 96.6 (H) 10/06/2022 Lab Results Component Value Date GLUCOSE 213 (H) 10/06/2022 CALCIUM 9.3 10/06/2022 SODIUM 144 10/06/2022 POTASSIUM 4.4 10/06/2022 CO2 25 10/06/2022 CHLORIDE 110 10/06/2022 BUNSER 31 (H) 10/06/2022 CREATININE 1.70 (H) 10/06/2022 Major Procedures and Tests: Major Procedures and Tests Performed During Inpatient Stay: Studies Pending at Discharge (Includes Lab and Radiology) Blood cx Interval History: Sent to ED from wound clinic for low O2 and increased confusion. Found to have elevated lactate. Treated for UTI, but negative culture. 1/2 + blood culture, ruled to be contaminant. R great toe necrosis: following with podiatry and wound clinic(last saw yesterday) Diabetes mellitus: on trulicity 1.5mg weekly, 25 units lantus & 12 units humalog TIDAC with SSI, follows with endocrine. Son reports blood sugars 140-160 Neuropathy: on lyrica 150mg nightly Hypertension: on 6.25mg coreg twice a day, valsartan 40mg Hyperlipidemia: on 20mg atorvastatin Ckd: following with nephro Chronic DVT: on eliquis 5mg twice a day Alzheimer's dementia: following with neurology, getting brain MRI, considering aricept or namenda Parkinsonism: following with neurology, on cogentin 1.5mg nightly Schizophrenia: following with psychiatry, on resperidone 2mg nightly Wheezing/shortness of breath: improved with albuterol as needed Problem Parkinsonism (Hcc) Toe Necrosis (Cms/Hcc) (Hcc) Late Onset Alzheimer's Dementia Without Behavioral Disturbance (Hcc) 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 2 diabetes mellitus (CMS/HCC) (HCC) Schizoaffective disorder, bipolar type (CMS/HCC) (HCC) Hyperlipidemia associated with type 2 diabetes mellitus (HCC) Hypertension associated with diabetes (HCC) Type 2 diabetes mellitus with diabetic neuropathy, with long-term current use of insulin (CMS/HCC) (HCC) Diabetic Neuropathy (Hcc) Urinary Tract Infection Without Hematuria (Resolved) Acute Cystitis Without Hematuria (Resolved) Altered Mental Status, Unspecified Altered Mental Status Type (Resolved) Delirium (Resolved) Current Outpatient Medications Medication Sig Dispense Refill albuterol HFA (ProAir HFA) 90 mcg/actuation inhaler Inhale 2 puffs every 4 (four) hours as needed for wheezing or shortness of breath 8.5 g 2 apixaban (ELIQUIS) 5 mg tablet Take 1 tablet (5 mg total) by mouth every 12 (twelve) hours 180 tablet 0 atorvastatin (LIPITOR) 20 mg tablet Take 1 tablet (20 mg total) by mouth daily 90 tablet 3 BD Arlyn 2nd Gen Pen Needle 32 gauge x 5/32 needle USE TO INJECT BASAGLAR EVERY NIGHT AT BEDTIME benztropine (COGENTIN) 1 mg tablet Take 1.5 tablets (1.5 mg total) by mouth nightly 45 tablet 2 blood pressure monitor kit Check BP as instructed 1 kit 0 carvediloL (COREG) 6.25 mg tablet Take 1 tablet (6.25 mg total) by mouth 2 (two) times a day with meals 60 tablet 2 conner.stocking,thigh,reg,med misc Wear as much as possible 2 each 1 dulaglutide (TRULICITY) 1.5 mg/0.5 mL pen injector Inject 0.5 mL (1.5 mg total) under the skin every 7 days 2 mL 2 famotidine (PEPCID) 10 mg tablet Take 1 tablet (10 mg total) by mouth nightly 90 tablet 0 flash glucose scanning reader (FreeStyle Madhav 2 [place]) misc Use to continually monitor glucose 1 each 0 flash glucose sensor (FreeStyle Madhav 2 Sensor) kit Use to continually monitor glucose, change every 14 days 6 kit 3 furosemide (LASIX) 40 mg tablet Take 1 tablet (40 mg total) by mouth daily as needed (Weight Gain >4lbs above dry weight.) insulin glargine 100 unit/mL (3 mL) pen for injection Inject 25 Units under the skin nightly 45 mL 4 insulin lispro (HumaLOG) 200 unit/mL (3 mL) pen for injection Inject 0.06 mL (12 Units total) underthe skin 3 (three) times a day with meals For Glucose <140: 0 units(u), 140-174: 2u, 175-199: 4u, 200-249: 6u, 250-299: 8u, 300-349: 10u, 350+: 12u 5.4 mL 2 lancets [facility] Check blood sugar up to 3 times a day 100 each 3 miscellaneous medical supply (Blood Pressure Cuff) [facility] Use to check blood pressure daily 1 each 1 OneTouch Verio test strips strip TEST 3 TO 4 TIMES DAILY 400 each 1 polyethylene glycol (MIRALAX) 17 gram packet Take 1 packet (17 g total) by mouth daily as needed for constipation pregabalin (LYRICA) 150 mg capsule Take 1 capsule (150 mg total) by mouth nightly 30 capsule 2 risperiDONE (RisperDAL) 2 mg tablet Take 1 tablet (2 mg total) by mouth nightly 30 tablet 2 syringe with needle, insulin (INSULIN [place]ED[place] U-100 [facility]) 3 times a day acetaminophen (TYLENOL) 325 mg tablet Take 2 tablets (650 mg total) by mouth every 6 (six) hours asneeded for pain 30 tablet 1 doxycycline hyclate 100 mg capsule valsartan (DIOVAN) 40 mg tablet No current facility-administered medications for this visit. Review of Systems: Review of Systems Respiratory: Negative for shortness of breath. Cardiovascular: Negative for chest pain. Skin: Positive for wound. Psychiatric/Behavioral: Positive for confusion. Decreased concentration: back to baseline. Physical Exam: BP 144/80 (BP Location: Left arm, Patient Position: Sitting) Pulse 86 Temp 36.3 ??C (97.3 ??F) (Temporal) Resp 18 Ht 157.5 cm (5' 2 ) Wt 69.5 kg (153 lb 3.2 oz) SpO2 98% BMI 28.02 kg/m?? Physical Exam Gen: NAD, comfortable, appears as stated age Eyes: no conjunctival injection, EOMI ENMT: external ears symmetric CV: RRR without murmur, rub, gallop. Pulm: good respiratory effort, CTAB no rhonchi, rales, or wheezes Skin: no rashes or nodules, warm and dry Ext: minimal lower extremity edema MSK/Neuro: symmetric limb movement Psych: alert and oriented to person/place Assessment/Plan Diagnoses and all orders for this visit: Toe necrosis ([facility]) ([facility]) (Primary) Assessment & Plan: Following with podiatry & wound care Type 2 diabetes mellitus with diabetic neuropathy, with long-term current use of insulin ([facility]) ([facility]) Assessment & Plan: Following with endocrine Continue lantus, 12 units humalog TIDAC & 1.5mg trulicity Other diabetic neurological complication associated with type 2 diabetes mellitus ([facility]) Assessment & Plan: Continue lyrica 150mg nightly Hypertension associated with diabetes ([facility]) Assessment & Plan: Continue coreg 6.25mg twice a day & 40mg valsartan Hyperlipidemia associated with type 2 diabetes mellitus ([facility]) Assessment & Plan: Continue statin 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 2 diabetes mellitus ([facility]) ([facility]) Assessment & Plan: Following with nephrology Left leg DVT ([facility]) ([facility]) - US VEIN DUPLEX LOWER EXTREMITY LEFT LIMITED, UNILATERAL; Future Late onset Alzheimer's dementia without behavioral disturbance ([facility]) Assessment & Plan: Following with neurology, ordered MRI, # given to son to schedule Parkinsonism, unspecified Parkinsonism type ([facility]) Assessment & Plan: Following with neurology On cogentin Schizoaffective disorder, bipolar type ([facility]) ([facility]) Assessment & Plan: Following with psychiatry On risperidone Wheezing Comments: continue albuterol prn Other orders - acetaminophen (TYLENOL) 325 mg tablet; Take 2 tablets (650 mg total) by mouth every 6 (six) hoursas needed for pain Coordination of Home care services and follow-up with specialist appointments confirmed. Instructions have been provided to and reviewed with the patient/hospice care consultant prior to discharge. Cherelle Corcoran MD documented in this encounter Miscellaneous Notes * Assessment & Plan Note - Cherelle Corcoran MD - 10/10/2022 10:47 AM CDTAssociated Problem(s): Mixed hyperlipidemia Continue statin * Assessment & Plan Note - Cherelle Corcoran MD - 10/10/2022 10:41 AM CDTAssociated Problem(s): Schizoaffective disorder, bipolar type (CMS/HCC) (HCC) Following with psychiatry On risperidone * Assessment & Plan Note - Cherelle Corcoran MD - 10/10/2022 10:41 AM CDTAssociated Problem(s): Parkinsonism (HCC) Following with neurology On cogentin * Assessment & Plan Note - Cherelle Corcoran MD - 10/10/2022 10:39 AM CDTAssociated Problem(s): Primary hypertension Continue coreg 6.25mg twice a day & 40mg valsartan * Assessment & Plan Note - Cherelle Corcoran MD - 10/10/2022 10:38 AM CDTAssociated Problem(s): 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 2 diabetes mellitus (CMS/HCC) (HCC) (Deleted) Following with nephrology * Assessment & Plan Note - Cherelle Corcoran MD - 10/10/2022 10:37 AM CDTAssociated Problem(s): Late onset Alzheimer's dementia without behavioral disturbance (HCC) Following with neurology, ordered MRI, # given to son to schedule * Assessment & Plan Note - Cherelle Corcoran MD - 10/10/2022 10:36 AM CDTAssociated Problem(s): Toe necrosis (CMS/HCC) (HCC) Following with podiatry & wound care * Assessment & Plan Note - Cherelle Corcoran MD - 10/10/2022 10:35 AM CDTAssociated Problem(s): Diabetic neuropathy (HCC) (Resolved 05/16/2024) Continue lyrica 150mg nightly * Assessment & Plan Note - Cherelle Corcoran MD - 10/10/2022 10:35 AM CDTAssociated Problem(s): Type 2 diabetes mellitus with diabetic neuropathy, with long-term current use of insulin (HCC) Following with endocrine Continue lantus, 12 units humalog TIDAC & 1.5mg trulicity documented in this encounter Plan of Treatment Upcoming Encounters Date Type Department Care Team (Latest Contact Info) Description 07/13/2024 9:00 AM ALIGNER TYPEWRITER Hospital Encounter [facility] [address] [place] [address] Jaya Grier MD [facility] [address] [address] 07/13/2024 9:00 AM ALIGNER TYPEWRITER - 07/13/2024 9:30 AM ALIGNER TYPEWRITER Surgery [facility] [address] [place] [address] Jaya Grier MD [address] [facility] [address] [place] [id number] ESOPHAGOGASTRODUODENOSCOPY Scheduled Procedures Name Priority Associated Diagnoses Date/Ti nh ESOPHAGOGASTRODUODENOSCOPY Anemia, unspecified type Gastritis without bleeding, unspecified chronicity, unspecified gastritis type 07/13/2024 9:00 AM ALIGNER TYPEWRITER COLONOSCOPY Iron deficiency anemia due to chronic blood loss documented as of this encounter Results * US VEIN DUPLEX LOWER EXTREMITY LEFT LIMITED, UNILATERAL (10/30/2022 9:36 AM CDT) Anatomical Region Laterality Modality Vascular Left Ultrasound 10/30/2022 Narrative 11/03/2022 2:33 PM CDT [employer] Job ID: [id number] [employer] Document ID: [id number] Dictated date/time: [id number] REASON FOR STUDY Left leg pain. FINDINGS No thrombus seen in the left common femoral, superficial femoral, popliteal, posterior peroneal or greater saphenous veins. IMPRESSION No evidence of DVT, left lower extremity. Job ID/Internal Job ID: [id number] Cherelle Corcoran MD [facility] PROCEDURES Final Result documented in this encounter Visit Diagnoses Diagnosis Toe necrosis (CMS/HCC) (HCC)- Primary Type 2 diabetes mellitus with diabetic neuropathy, with long-term current use of insulin (HCC) Other diabetic neurological complication associated with type 2 diabetes mellitus (HCC) Hypertension associated with diabetes (HCC) Unspecified essential hypertension Hyperlipidemia associated with type 2 diabetes mellitus (HCC) 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 2 diabetes mellitus (CMS/HCC) (HCC) Left leg DVT (HCC) Late onset Alzheimer's dementia without behavioral disturbance (HCC) Parkinsonism, unspecified Parkinsonism type (HCC) Schizoaffective disorder, bipolar type (CMS/HCC) (HCC) Schizoaffective disorder, unspecified condition Wheezing Left leg DVT (HCC) Anemia, unspecified type Gastritis without bleeding, unspecified chronicity, unspecified gastritis type documented in this encounter Discontinued Medications Medication Sig Discontinue Reason Start Date End Da te acetaminophen (TYLENOL) 325 mg tablet Take 2 tablets (650 mg total) by mouth every 6 (six) hours as needed for pain Reorder 10/10/2022 documented as of this encounter Historical Medications * This list may reflect changes made after this encounter. Medication Sig Dispense Quantity Refills Last Filled Start D ate End Date doxycycline hyclate 100 mg capsule 08/14/2022 11/13/2022 valsartan (DIOVAN) 40 mg tablet 09/15/2022 10/14/2022 added in this encounter Care Teams Commercial Lending Assistant Relationship Specialty Start Date End Date Cherelle Corcoran MD PCP - General Family Medicine 08/30/19 Mark Queen MD Consulting Physician Infectious Diseases 01/10/20 Anam Costa LCSW Bundle Packer 08/08/22 02/18/23 Melania Lee RN [address] [place] [address] [address] [place] [id number] Remote Pilot Operator 08/22/22 12/07/22 documented as of this encounter
--- OUTSIDE RECORDS SUMMARY | 2024-07-04 04:11 | XMS_ITS | Encounter Summary ---
Author Organization [facility] Healthcare Address [address] [place] [address] Care Team Providers Care Production Machine Operator Name Role Phone Cherelle Corcoran MD Primary Care Pro vider Mark Queen MD Unavailable [phone] Anam CostaW Unavailable Unavailabl Melania Moncada RN Unavailable [phone] Reason for Visit * Reason Comments OT Initial Eval * Occupational Therapy (Routine) - Closed Specialty Diagnoses / Procedures Referred By Contflex t Referred To Contact Occupational Therapy Diagnoses Parkinsonism, unspecified Parkinsonism type (HCC) Macey Ellis NP Phone: tel: fax: [facility] OP Physical Therapy [address] [place] [address] Phone: tel: fax: Referral ID Status Reason Start Date Expiration Date V isits Requested Visits Authorized [id number] Closed Specialty Services Required 09/02/2022 06/21/2023 30 30 Encounter Details Date Type Department Care Team (Late st Contact Info) Description 09/02/2022 2:30 PM CDT Therapy [facility] OP Occup Therapy [address] [address] Stefani Tyson, MOE Parkinsonism, unspecified Parkinsonism type (HCC) (Primary [...] 08/08/2022 How often do you attend chur or moravian services? More than 4 times [...] slept in a detention (including now)? No 08/08/2022 Comments No Sex and Gender Information Value Date Recorded Sex Assigned at Not on file Legal Sex Female 9:03 AM ABSTRACT SEARCHER Gender Identity Female 02/08/2020 6:39 PM CDT Sexual Orientation Not on file documented as of this encounter Progress Notes * Stefani Tyson OT - 09/02/2022 2:30 PM CDT OCCUPATIONAL THERAPY LSVT BIG EVALUATION INITIAL CERTIFICATION 09/02/2022 Time In: 1515 Time Out: 1630 Total minutes: 75 Barbara Chakraborty 1950 71 y.oMACEY VILLATORO ICD-9-CM ICD-10-CM 1. Parkinsonism, unspecified Parkinsonism type (HCC) 332.0 G20 Past Medical History: Diagnosis Date Arthritis Dementia (HCC) Depression Diabetic neuropathy (HCC) Hyperlipidemia Hypertension Renal disorder Schizophrenia (HCC) Type 2 diabetes mellitus (HCC) Past Surgical History: Procedure Laterality Date SECTION Right right foot TOE AMPUTATION Right 01/06/2020 4th toe amp/ foot debridement/ Dr. Anat Pleayo Medical History/comorbidities/prior diagnostic imaging and results: CT on 05/08/22: Reversal of theusual cervical lordosis. Severe multilevel degenerative changes of the cervical spine, with multilevel disc height loss. There is up to moderate-severe degenerative neuroforaminal and canal narrowing. SUBJECTIVE Patient report of: initial symptoms: resting hand tremors Current symptoms: tremors and rigidity/stiffness Location of symptoms:right hand greater than left, both with tremors, flexed posture with tightnessin neck/shoulders. Precautions: fall Pain: 7/10 left, hip, and knee moderate, consistent, daily, and progressive reports left side of trunk and legs uses Tylenol for pain Therapy history: home therapy following UTI only; has not attended OP OT in the past Prior therapy for same diagnosis: no Hand dominance: RIGHT Arm reported as affected: RIGHT Falls: one fall in kitchen using w/w; reports not too many near misses Medication: daughter sets up all medicines and [...] with her daughter, patient was independent dressing self Changes in function that impact ADLS: general decline in all ADLS and mobility skills in the past year with greater weakness in past 6 months, especially following hospitalization for UTI OT roles/occupations: mother/grandmother Lives with: child/children- daughter Areli and granddaughter stays with her when daughter works Home environment: one level home; bedroom and [...] In Community: w/w or w/c ADLS Feeding: reports moderate spillage of food using right hand related to tremors Oral Care/Grooming: family brushes dentures and assist with getting in her mouth Bathing and Dressing: Patient is unable to get into the shower related to great toe wound on R foot; family assist with getting dressed Toileting: no equipment around toilet; patient uses toilet with w/w and uses sink for support; can get your clothes up/down 75% of the time and requires assistance to pull pants up fully Bed/Car/Toilet Transfers: has bed rail and requires moderate assistance to get OOB to sit on EOB; getting in/out of car moderate assist with assist for lifting legs into truck Meal Preparation: Family assist with snacks and cooking; patient does not carry items while walkingwith w/w; patient attempts to get water without w/w occasionally Handwriting/computer: no use of cell phone or computer Phone use: uses home phone; patient does not remember 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s; daughter reports she forgets to hang up Leisure Activities: enjoy: playing cards and board games given up: has not played in a long time Activity: limited with activity Other: confusion and difficulty attending at times during evaluation Patient goal: I need to get stronger. Caregiver goal: I'd like her to get stronger and be able to feed herself better. FUNCTIONAL TASK RECORDING FORM: NOT DIFFICULT MINIMALLY DIFFICULT SOMEWHAT DIFFICULT MODERATELY DIFFICULT VERY DIFFICULT EXTREMELY DIFFICULT UNABLE Bed mobility/supine to sit to eob using rail 2. Standing from a chair 3. handwriting 4. Getting in/out of a car 5. Feeding self (needs a/e training) 6. Getting in/out of a car ABC Scale: N/T this date related to confusion and time constraints OBJECTIVE MEASUREMENT: 5 Sit to stand time: 15 seconds for 1 sit to stand from armed chair TUG time: Trial 1: 45 seconds TUG Cognitive: N/T WATERS: N/T/56 Upper Extremity AROM/PROM/Strength: Tightness noted in both shoulders with pain reported in left side of trunk with LUE overhead AROM. RUE: shoulder flexion 90/125/3-/5, elbow flexion/extension WFL/4-/5, wrist flexion WFL, extension ~45 degrees/3-/5 strength, finger AROM functional with full serial opposition with minimal difficultywith full, active composite fist with tightness noted. LUE: shoulder flexion 90/110/3-/5, shoulder abduction 100/110/3-/5, elbow flexion/ext WFL/4-/5, wrist flexion WFL, extension ~45, finger AROM functional with full serial opposition with minimal difficulty with full, active composite fist with tightness noted. Tile Mason strength: Right 19.5# Left: 14# 9-Hole Peg Test: Right: 73 seconds Left: 84 seconds Timed ADL task: completed signing name twice in 30 seconds Mobility/Transfer status: minimal safety/verbal cues required for walker safety/management, required assist to keep walker from veering when in waiting room Cognitive Status: impaired memory but able to follow all commands and participated fully MiniBESTest: N/T Short Blessed Test of Memory: 0-4 = Normal, 5-9 = Questionable Impairment, 10+ = Impairment consistent with Dementia FUNCTIONAL COMPONENTS IDENTIFIED: Functional Component Movements Cues Assist Sit to stand Supine to sit to eob 3. Self-feeding 4. handwriting 5. Getting up from a chair HIERARCHIES IDENTIFIED: Hierarchies Cues Assist Walking through congested area with w/w Getting in/out of a car Carrying an item with w/w TREATMENT/EDUCATION PROVIDED: Patient seen for 75 minute evaluation. Patient/daughter 30 minutes late for evaluation and requiredblood sugar testing when arriving related to confusion. BS 276 with daughter reporting she wants toproceed and will give medicine when home. Patient drank water and was more clear after 10 minutes. BP checked at 137/64, 76 HR. Reviewed medical and therapy history with the daugher/patient. Objective measurements taken as noted above. All precautions reviewed with patient/daughter with patient verbalizing desire to proceed with LSVT BIG program. Developed plan of care and goals with patient/daughter with agreement to proceed verbalized. Recommended 2x/week and progress as tolerated with frequency with daughter verbalizing agreement. Patient left daughter with no further questions or concerns. ASSESSMENT: Problem Areas Identified as follows: DECREASED FEEDING SKILLS, DECREASED GROOMING SKILLS, DECREASED BATHING SKILLS, DECREASED DRESSING SKILLS, DECREASED FUNCTIONAL TRANSFERS, DECREASED FUNCTIONAL MOBILITY, DECREASED COGNITION, DECREASEDSAFETY AWARENESS, DECREASED GROSS MOTOR SKILLS, DECREASED ENDURANCE, DECREASED STANDING BALANCE, DECREASED UE STRENGTH, DECREASED AROM , DECREASED PROM, DECREASED HAND STRENGTH, and DECREASED FINE MOT OR SKILLS Activity Restrictions/Precautions: confusion at times, blood sugar issues Barriers to learning/therapy: confusion at times Rehab potential: Fair to good STGS to be met by 09/30/22 1. Patient complete putty exercises with SBA/min cues for hand strengthening. 2. Patient will complete table slides with BUES with SBA from caregiver for improved shoulder ROM. 3. Patient to complete seated LSVT BIG exercises with min assist for safety/body position x 4-6 reps each. LTGS to be met by 10/28/22 1. [...] w/w with no assistance for managing walker. PLAN: Frequency/duration: Skilled Occupational Therapy 2 times per week for 8-10 weeks. Occupational Therapy treatment plan to include the following interventions: ADL TRAINING, ADAPTIVE EQUIPMENT TRAINING, DME EDUCATION, PATIENT EDUCATION, IADL TRAINING, HANDWRITING , SAFETY EDUCATION, UE AAROM, UE AROM, UE PROM, UE STRENGTHENING, UE HOME EXERCISE PROGRAMS, FMC , GMC, NEURO-MUSCULAR RE- EDUCATION, THERAPEUTIC ACTIVITIES, BALANCE TRAINING, MODALITIES, FLUIDOTHERAPY, and FUNCTIONAL MOBILITY TRAINING Other Treatment: LSVT BIG exercises/treatment Stefani Tyson OTR/L [facility] [email or web address] If you are unable to electronically sign this document, please print out, sign and fax to to certify this plan of care/treatment plan. Thank you! Provider Signature: Date: documented in this encounter Plan of Treatment Upcoming Encounters Date Type Department Care Team (Latest Contact Info) Description 07/13/2024 9:00 AM ABSTRACT SEARCHER Hospital Encounter [facility] [address] [place] [address] Jaya Grier MD [address] [place] [address] DR GAINES [address] [place] [address] 07/13/2024 9:00 AM ABSTRACT SEARCHER - 07/13/2024 9:30 AM ABSTRACT SEARCHER Surgery [facility] [address] [place] [address] Jaya Grier MD [facility] [address] GAINES [address] [place] [address] ESOPHAGOGASTRODUODENOSCOPY Scheduled Procedures Name Priority Associated Diagnoses Date/Ti tx ESOPHAGOGASTRODUODENOSCOPY Anemia, unspecified type Gastritis without bleeding, unspecified chronicity, unspecified gastritis type 07/13/2024 9:00 AM ABSTRACT SEARCHER COLONOSCOPY Iron deficiency anemia due to chronic blood loss documented as of this encounter Visit Diagnoses Diagnosis Parkinsonism, unspecified Parkinsonism type (HCC)- Primary Anemia, unspecified type Gastritis without bleeding, unspecified chronicity, unspecified gastritis type documented in this encounter Care Teams Production Machine Operator Relationship Specialty Start Date End Date Cherelle Corcoran MD PCP - General Family Medicine 08/30/19 Mark Queen MD Consulting Physician Infectious Diseases 01/10/20 Anam Costa LCSW Shell Molding Roller Blast Operator 08/08/22 02/18/23 Melania Lee RN [address] [place] [address] DR GAINES [address] [place] [id number] Branch Services Manager 08/22/22 12/07/22 documented as of this encounter
--- OUTSIDE RECORDS SUMMARY | 2024-07-04 04:11 | XMS_ITS | Encounter Summary ---
Author Organization [facility] Healthcare Address [address] [place] [address] Care Team Providers Care Research Greenhouse Supervisor Name Role Phone Cherelle Corcoran MD Primary Care Pro vider Mark Queen MD Unavailable [phone] Anam CostaW Unavailable Unavailabl Melania Moncada RN Unavailable [phone] Reason for Visit * Episode Based Medications (Routine) - Pending Review Specialty Diagnoses / Procedures Referred By Contac t Referred To Contact Diagnoses Anemia in chronic kidney disease, on chronic dialysis (HCC) Procedures [place] INJ RETACRIT NON-ESRD USE Markie Ryan MD [address] [place] [address] Phone: tel: fax: [address] [address] Phone: tel: fax: Referral ID Status Reason Start Date Expiration Date V isits Requested Visits Authorized [id number] Pending Review 10/10/2022 11/09/2023 1 1 Encounter Details Date Type Department Care Team (Latest Contact Info) Description 10/13/2022 3:30 PM CDT - 10/13/2022 11:59 PM CDT Hospital Encounter [facility] [address] [place] [address] Anemia in stage 4 chronic kidney disease (HCC) (Primary Dx) Discharge Disposition: Discharge to [...] often do you attend chur ch or gnosticist services? More than 4 times per year [...] file Legal Sex Female 9:03 AM MARINE MACHINIST Gender Identity Female 02/08/2020 6:39 PM CDT Sexual Orientation Not on file documented as of this encounter Last Filed Vital Signs Vital Sign Reading Time Taken Comments Blood Pressure 155/69 10/13/2022 3:30 PM CDT Pulse 75 10/13/2022 3:30 PM CDT Temperature 36.3 ??C (97.3 ??F) 10/13/2022 3:30 PM CD T Respiratory Rate 18 10/13/2022 3:30 PM CDT Oxygen Saturation 94% 10/13/2022 3:30 PM CDT Inhaled Oxygen Concentration - - Weight - - Height - - Body Mass Index - - documented in this encounter Medications at Time of Discharge acetaminophen (TYLENOL) 325 mg tablet Take 2 tablets (650 mg total) by mouth every 6 (six) hours as needed for pain 30 tablet 1 10/10/2022 11/14/19 23 albuterol HFA (ProAir HFA) 90 mcg/actuation inhalerIndications :Wheezing Inhale 2 puffs every 4 (four) hours as needed for wheezing or shortness of breath 8.5 g 2 10/06/2022 11/14/19 23 apixaban (ELIQUIS) 5 mg tablet Take 1 tablet (5 mg total) by mouth every 12 (twelve) hours 180 tablet 09/19/2022 11/14/19 23 atorvastatin (LIPITOR) 20 mg tabletIndications: Hyperlipidemia associated with type 2 diabetes mellitus (HCC) Take 1 tablet (20 mg total) by mouth daily 90 tablet 3 05/26/2022 11/14/19 23 BD Arlyn 2nd Gen Pen Needle 32 gauge x needleIndications: Type 2 diabetes mellitus with diabetic neuropathy, with long-term current use of insulin ([facility]) USE TO INJECT BASAGLAR EVERY NIGHT AT BEDTIME 06/25/2021 12/01/19 23 benztropine (COGENTIN) 1 mg tablet Take 1.5 tablets (1.5 mg total) by mouth nightly 45 tablet 2 07/18/2022 11/14/19 23 blood pressure monitor kit Check BP as instructed 1 kit 03/20/2021 12/01/19 23 carvediloL (COREG) 6.25 mg tablet Take 1 tablet (6.25 mg total) by mouth 2 (two) times a day with meals 60 tablet 2 10/06/2022 11/14/19 23 conner.stocking,t high,reg,med miscIndications:Pe ripheral edema Wear as much as possible 2 each 1 05/28/2021 10/07/19 24 doxycycline hyclate 100 mg capsule 08/14/2022 11/14/19 23 dulaglutide (TRULICITY) 1.5 mg/0.5 mL pen injectorIndication s:Type 2 diabetes mellitus with diabetic neuropathy, with long-term current use of insulin ([facility]) Inject 0.5 mL (1.5 mg total) under the skin every 7 days 2 mL 2 10/06/2022 11/14/19 23 famotidine (PEPCID) 10 mg tabletIndications: Gastroesophageal reflux disease, unspecified whether esophagitis present Take 1 tablet (10 mg total) by mouth nightly 90 tablet 02/13/2022 11/14/19 23 flash glucose scanning reader (FreeStyle Madhav 2 [place]) miscIndications:Ty pe 2 diabetes mellitus with diabetic neuropathy, with long-term current use of insulin ([facility]) Use to continually monitor glucose 1 each 10/01/2021 03/24/20 23 flash glucose sensor (FreeStyle Madhav 2 Sensor) kitIndications:Typ e 2 diabetes mellitus with diabetic neuropathy, with long-term current use of insulin ([facility]) Use to continually monitor glucose, change every 14 days 6 kit 3 10/01/2021 10/29/19 23 furosemide (LASIX) 40 mg tablet Take 1 tablet (40 mg total) by mouth daily as needed (Weight Gain >4lbs above dry weight.) 10/06/2022 11/14/19 23 insulin glargine 100 unit/mL (3 mL) pen for injectionIndicatio ns:Type 2 diabetes mellitus with diabetic neuropathy, with long-term current use of insulin ([facility]) Inject 25 Units under the skin nightly 45 mL 4 08/07/2022 11/14/19 23 insulin lispro (HumaLOG) 200 unit/mL (3 mL) pen for injectionIndicatio ns:type 2 diabetes mellitus Inject 0.06 mL (12 Units total) under the skin 3 (three) times a day with meals For Glucose <140: 0 units(u), 140-174: 2u, 175-199: 4u, 200-249: 6u, 250-299: 8u, 300-349: 10u, 350+: 12u 5.4 mL 2 10/06/2022 11/14/19 23 lancets miscIndications:Un controlled type 2 diabetes mellitus with hyperglycemia (HCC) Check blood sugar up to 3 times a day 100 each 3 11/13/2020 12/01/19 23 miscellaneous medical supply (Blood Pressure Cuff) miscIndications:Hy pertension associated with diabetes (HCC) Use to check blood pressure daily 1 each 1 10/07/2021 12/01/19 23 OneTouch Verio test strips stripIndications:U ncontrolled type 2 diabetes mellitus with hyperglycemia (HCC) TEST 3 TO 4 TIMES DAILY 400 each 1 06/25/2021 11/14/19 23 polyethylene glycol (MIRALAX) 17 gram packet Take 1 packet (17 g total) by mouth daily as needed for constipation 10/06/2022 11/14/19 23 pregabalin (LYRICA) 150 mg capsuleIndications :Other diabetic neurological complication associated with type 2 diabetes mellitus (HCC) Take 1 capsule (150 mg total) by mouth nightly 30 capsule 2 05/26/2022 11/14/19 23 risperiDONE (RisperDAL) 2 mg tablet Take 1 tablet (2 mg total) by mouth nightly 30 tablet 2 10/06/2022 11/14/19 23 risperiDONE (RisperDAL) 2 mg tablet Take 1 tablet (2 mg total) by mouth 12/21/2021 04/07/20 23 syringe with needle, insulin (INSULIN SYRINGE-NEEDLE U-100 MISC) 3 times a day 09/12/2017 12/01/19 23 valsartan (DIOVAN) 40 mg tablet 09/15/2022 10/15/19 23 documented as of this encounter Discharge Disposition Disposition Code Departure Means Destination Discharge to home or self care documented in this encounter Plan of Treatment Upcoming Encounters Date Type Department Care Team (Latest Contact Info) Description 07/13/2024 9:00 AM MARINE MACHINIST Hospital Encounter [facility] [address] [place] [address] Jaya Grier MD [facility] [address] GAINES [address] [place] [address] 07/13/2024 9:00 AM MARINE MACHINIST - 07/13/2024 9:30 AM MARINE MACHINIST Surgery [facility] [address] [place] [address] Jaya Grier MD [facility] [address] GAINES [address] [place] [address] ESOPHAGOGASTRODUODENOSCOPY Scheduled Procedures Name Priority Associated Diagnoses Date/Ti la ESOPHAGOGASTRODUODENOSCOPY Anemia, unspecified type Gastritis without bleeding, unspecified chronicity, unspecified gastritis type 07/13/2024 9:00 AM MARINE MACHINIST COLONOSCOPY Iron deficiency anemia due to chronic blood loss documented as of this encounter Visit Diagnoses Diagnosis Anemia in stage 4 chronic kidney disease (HCC)- Primary Anemia, unspecified type Gastritis without bleeding, unspecified chronicity, unspecified gastritis type documented in this encounter Administered Medications Inactive Administered Medications - up to 3 most recent administrations Medication Order MAR Action Action Date Dose Rate Site epoetin isaiah-epbx (RETACRIT) (10,000 unit/mL) injection 20,000 Units 20,000 Units, subcutaneous, Every 2 weeks, First dose on 10/13/22 at 1615, Refrigerate, Indications: anemia in ckd stage 4Indications:anemia in ckd stage 4 Given 10/13/2022 3:45 PM CDT 20,000 Units Left Lower Abdomen documented in this encounter Care Teams Research Greenhouse Supervisor Relationship Specialty Start Date End Date Cherelle Corcoran MD PCP - General Family Medicine 08/30/19 Mark Queen MD Consulting Physician Infectious Diseases 01/10/20 Anam Costa LCSW Web Production Manager 08/08/22 02/18/23 Jesus, Melania Joel RN [address] [place] [address] DR GAINES [address] [place] [address] Plant Protection Officer 08/22/22 12/07/22 documented as of this encounter
--- OUTSIDE RECORDS SUMMARY | 2024-07-04 04:11 | XMS_ITS | Encounter Summary ---
Author Organization [facility] Address [address] [facility] [address] [place] [address] Care Team Providers Care Hot Knife Foxing Cutter Name Role Phone Cherelle Corcoran MD Primary Care Pro vider Mark Queen MD Unavailable [phone] Anam Costa LCSW Unavailable Unavailabl Melania Moncada RN Unavailable [phone] Encounter Details Date Type Department Care Team (Late st Contact Info) Description 10/10/[address] [facility] Nephrology at [address] [place] [address] [place] [address] [place] [address] [address] [place] [address] Anemia in stage 3b chronic kidney disease (HCC) (Primary Dx); Stage 3b chronic kidney disease (HCC) Social History [...] How often do you attend chur or zoroastrianism services? More than 4 times [...] slept in a prison (including now)? No 10/03/2022 Comments No Sex and Gender Information Value Date Recorded Sex Assigned at Not on file Legal Sex Female 9:03 AM SOFTWARE QUALITY ANALYST Gender Identity Female 02/08/2020 6:39 PM CDT Sexual Orientation Not on file documented as of this encounter Progress Notes * Mihaela Mejia MA - 10/10/2022 2:56 PM CDT Retacrit [address] units every [address] Ryan. documented in this encounter Plan of Treatment Upcoming Encounters Date Type Department Care Team (Latest Contact Info) Description 07/13/2024 9:00 AM SOFTWARE QUALITY ANALYST Hospital Encounter [facility] [address] [place] [address] Jaya Grier MD [facility]0 [facility] [address] GAINES [address] [place] [address] 07/13/2024 9:00 AM SOFTWARE QUALITY ANALYST - 07/13/2024 9:30 AM SOFTWARE QUALITY ANALYST Surgery [facility] [address] [place] [address] Jaya Grier MD [facility] [address] GAINES [address] [place] [address] ESOPHAGOGASTRODUODENOSCOPY Scheduled Procedures Name Priority Associated Diagnoses Date/Ti tn ESOPHAGOGASTRODUODENOSCOPY Anemia, unspecified type Gastritis without bleeding, unspecified chronicity, unspecified gastritis type 07/13/2024 9:00 AM SOFTWARE QUALITY ANALYST COLONOSCOPY Iron deficiency anemia due to chronic blood loss documented as of this encounter Visit Diagnoses Diagnosis Anemia in stage 3b chronic kidney disease (HCC)- Primary Stage 3b chronic kidney disease (HCC) Anemia, unspecified type Gastritis without bleeding, unspecified chronicity, unspecified gastritis type documented in this encounter Care Teams Hot Knife Foxing Cutter Relationship Specialty Start Date End Date Cherelle Corcoran MD PCP - General Family Medicine 08/30/19 Mark Queen MD Consulting Physician Infectious Diseases 01/10/20 Anam Costa LCSW Syrup Maker 08/08/22 02/18/23 Jesus, Melania Joel, RN [address] [place] [address] [address] Focused Factory Manager 08/22/22 12/07/22 documented as of this encounter
--- OUTSIDE RECORDS SUMMARY | 2024-07-04 04:11 | XMS_ITS | Encounter Summary ---
Author Organization [facility] Healthcare Address [address] [place] [address] Care Team Providers Care Electrician Control Equipment Name Role Phone Cherelle Corcoran MD Primary Care Pro vider Mark Queen MD Unavailable [phone] Anam CostaW Unavailable Unavailabl Melania Moncada RN Unavailable [phone] Reason for Referral * Diagnostic Imaging (Routine) - Closed Specialty Diagnoses / Procedures Referred By Contac t Referred To Contact Diagnoses Left leg DVT (HCC) Procedures US VEIN DUPLEX LOWER EXTREMITY LEFT LIMITED, UNILATERAL Cherelle Corcoran MD Phone: tel: fax: [address] [phone] Referral ID Status Reason Start Date Expiration Date Visits Re quested Visits Authorized [id number] Closed 10/10/2022 11/09/2023 1 1 Reason for Visit * Diagnostic Imaging (Routine) - Closed Specialty Diagnoses / Procedures Referred By Contac t Referred To Contact Diagnoses Left leg DVT (HCC) Procedures US VEIN DUPLEX LOWER EXTREMITY LEFT LIMITED, UNILATERAL Cherelle Corcoran MD Phone: tel: fax: [address] [phone] Referral ID Status Reason Start Date Expiration Date Visits Re quested Visits Authorized [id number] Closed 10/10/2022 11/09/2023 1 1 Encounter Details Date Type Department Care Team (Latest Contact Info) Description 10/30/2022 8:00 AM CDT - 10/30/2022 11:59 PM CDT Hospital Encounter [facility] [address] [place] [phone] Left leg DVT (CMS/HCC) (HCC) Discharge Disposition: Discharge to home [...] How often do you attend chur or spiritism services? More than 4 times [...] slept in a assisted (including now)? No 10/03/2022 Comments No Sex and Gender Information Value Date Recorded Sex Assigned at Not on file Legal Sex Female 9:03 AM REPRODUCTION ARTIST Gender Identity Female 02/08/2020 6:39 PM CDT [...] Gen Pen Needle 32 gauge x 5/32 needleIndications: Type 2 diabetes mellitus with diabetic neuropathy, with long-term current use of insulin ([facility]) USE TO INJECT BASAGLAR EVERY [...] neuropathy, with long-term current use of insulin ([facility]) Inject 0.5 mL (1.5 mg total) under the skin every 7 days 2 mL 2 10/06/2022 11/14/19 23 famotidine (PEPCID) 10 mg tabletIndications: Gastroesophageal reflux disease, unspecified whether esophagitis present Take 1 tablet (10 mg total) by mouth nightly 90 tablet 02/13/2022 11/14/19 23 flash glucose scanning reader (FreeStyle Madhav 2 Parks) miscIndications:Ty pe 2 diabetes mellitus with diabetic neuropathy, with long-term current use of insulin ([facility]) Use to continually monitor glucose 1 each 10/01/2021 03/24/20 23 flash glucose sensor (FreeStyle Madhav 2 Sensor) kitIndications:Typ e 2 diabetes mellitus with diabetic neuropathy, with long-term current use of insulin ([facility]) Use to continually monitor glucose, change every 14 days 6 kit 3 2022 03/24/20 23 furosemide (LASIX) 40 mg tablet Take 1 tablet (40 mg total) by mouth daily as needed (Weight Gain >4lbs above dry weight.) 10/06/2022 11/14/19 23 insulin glargine 100 unit/mL (3 mL) pen for injectionIndicatio ns:Type 2 diabetes mellitus with diabetic neuropathy, with long-term current use of insulin ([facility]) Inject 25 Units under the skin nightly [...] day 100 each 3 11/13/2020 12/01/19 23 losartan (COZAAR) 50 mg tablet Take 1 tablet (50 mg total) by mouth daily 30 tablet 11 10/14/2022 11/14/19 23 miscellaneous medical supply (Blood Pressure Cuff) miscIndications:Hy pertension associated with diabetes ([facility]) Use to check blood pressure [...] 3 times a day 09/12/2017 12/01/19 23 documented as of this encounter Discharge Disposition Disposition Code Departure Means Destination Discharge to home or self care documented in this encounter Plan of Treatment Upcoming Encounters Date Type Department Care Team (Latest Contact Info) Description 07/13/2024 9:00 AM REPRODUCTION ARTIST Hospital Encounter [facility] [address] [place] [phone] Jaya Grier MD [facility]0 [facility] [address] [place] [phone] 07/13/2024 9:00 AM REPRODUCTION ARTIST - 07/13/2024 9:30 AM REPRODUCTION ARTIST Surgery [facility] [address] [place] [id number] Jaya Grier MD [id number] [facility] [address] [place] [id number] ESOPHAGOGASTRODUODENOSCOPY Scheduled Procedures Name Priority Associated Diagnoses Date/Ti me ESOPHAGOGASTRODUODENOSCOPY Anemia, unspecified type Gastritis without bleeding, unspecified chronicity, unspecified gastritis type 07/13/2024 9:00 AM REPRODUCTION ARTIST COLONOSCOPY Iron deficiency anemia due to chronic blood loss documented as of this encounter Procedures Procedure Name Priority Date/Time Associated Diagnosis Comments US VEIN DUPLEX LOWER EXTREMITY LEFT LIMITED Schedule Routine, Read Routine (OP Routine) 10/30/2022 9:36 AM CDT Left leg DVT (CMS/HCC) (HCC) documented in this encounter Results * US VEIN DUPLEX LOWER EXTREMITY LEFT LIMITED, UNILATERAL (10/30/2022 9:36 AM CDT) Anatomical Region Laterality Modality Vascular Left Ultrasound 10/30/2022 Narrative 11/03/2022 2:33 PM CDT [employer] Job ID: [id number] [employer] Document ID: [id number] Dictated date/time: [id number] REASON FOR STUDY Left leg pain. FINDINGS No thrombus seen in the left common femoral, superficial femoral, popliteal, posterior peroneal or greater saphenous veins. IMPRESSION No evidence of DVT, left lower extremity. Job ID/Internal Job ID: [id number] Cherelle Corcoran MD [facility] PROCEDURES Final Result documented in this encounter Visit Diagnoses Diagnosis Left leg DVT (HCC) Anemia, unspecified type Gastritis without bleeding, unspecified chronicity, unspecified gastritis type documented in this encounter Care Teams Electrician Control Equipment Relationship Specialty Start Date End Date Cherelle Corcoran MD PCP - General Family Medicine 08/30/19 Mark Queen MD Consulting Physician Infectious Diseases 01/10/20 Anam Costa LCSW Freight Separator 08/08/22 02/18/23 Melania Lee RN [address] [place] [address] [address] [place] [id number] Wharf Tender 08/22/22 12/07/22 documented as of this encounter
--- OUTSIDE RECORDS SUMMARY | 2024-07-04 04:11 | XMS_ITS | Encounter Summary ---
Author Organization [facility] Healthcare Address [address] [place] [address] Care Team Providers Care Paintings Restorer Name Role Phone Cherelle Corcoran MD Primary Care Pro vider Mark Queen MD Unavailable + [phone] Anam CostaW Unavailable Unavailabl Melania Moncada RN Unavailable [phone] Reason for Visit * Reason Comments Weakness - Generalized Daughter states t hat this morning pt was weak this morning and had some back pain. Daughter states pt has an open wound to the right big toe. Encounter Details Date Type Department Care Team (Late st Contact Info) Description 09/04/2022 10:54 AM CDT - 09/04/2022 6:32 PM CDT Emergency [facility] Emergency Department [address] [place] [address] [place] [id number] [place] [address] Open wound of right great toe (Primary Dx); Urinary tract infection without hematuria, site unspecified Discharge Disposition: Discharge to home or self [...] slept in a assisted (including now)? No 08/08/2022 Comments No Sex and Gender Information Value Date Recorded Sex Assigned at Not on file Legal Sex Female 9:03 AM DEEP FAT FRY COOK Gender Identity Female 02/08/2020 6:39 PM CDT Sexual Orientation Not on file documented as of this encounter Last Filed Vital Signs Vital Sign Reading Time Taken Comments Blood Pressure 153/65 09/04/2022 6:00 PM CDT Pulse 71 09/04/2022 6:00 PM CDT Temperature 36.7 ??C (98.1 ??F) 09/04/2022 10:52 AM C DT Respiratory Rate 17 09/04/2022 6:00 PM CDT Oxygen Saturation 99% 09/04/2022 6:00 PM CDT Inhaled Oxygen Concentration - - Weight 68 kg (150 lb) 09/04/2022 10:52 AM CDT Height 157.5 cm (5' 2 ) 09/04/2022 10:52 AM CDT Body Mass Index 27.44 09/04/2022 10:52 AM CDT documented in this encounter Discharge Instructions * Discharge Instructions* Lucy Lucero MD - 09/04/2022 5:52 PM CDT Take antibiotics as prescribed follow-up with the wound care as scheduled. Call your doctor for follow-up advised to come back to the emergency room with any worsening symptoms * Attachments The following attachments cannot be sent through Care Everywhere. * Bladder Infection, Female (Adult) (Bermudian) * Wound Infection (AfterCare(R) Instructions(ER/ED)) (Bermudian) documented in this encounter Medications at Time of Discharge amoxicillin-clavul anate (Augmentin) 500-125 mg per tablet Take 1 tablet by mouth every 12 (twelve) hours for 10 days 20 tablet 09/04/2022 3 acetaminophen (TYLENOL) 325 mg tablet Take 2 tablets (650 mg total) by mouth every 6 (six) hours as needed for pain 3 albuterol HFA (ProAir HFA) 90 mcg/actuation inhalerIndications :Wheezing Inhale 2 puffs every 4 (four) hours as needed for wheezing or shortness of breath 8.5 g 09/25/2021 3 apixaban (ELIQUIS) 5 mg tablet Take 1 tablet (5 mg total) by mouth every 12 (twelve) hours 180 tablet 05/19/2022 3 atorvastatin (LIPITOR) 20 mg tabletIndications: Hyperlipidemia associated with type 2 diabetes mellitus (HCC) Take 1 tablet (20 mg total) by mouth daily 90 tablet 3 05/26/2022 3 BD Arlyn 2nd Gen Pen Needle 32 gauge x needleIndications: Type 2 diabetes mellitus with diabetic neuropathy, with long-term current use of insulin ([facility]) USE TO INJECT BASAGLAR EVERY NIGHT AT BEDTIME 06/25/2021 3 benztropine (COGENTIN) 1 mg tablet Take 1.5 tablets (1.5 mg total) by mouth nightly 45 tablet 2 07/18/2022 3 blood pressure monitor kit Check BP as instructed 1 kit 03/20/2021 3 carvediloL (COREG) 6.25 mg tablet Take 1 tablet (6.25 mg total) by mouth 2 (two) times a day with meals 60 tablet 08/07/2022 3 conner.stocking,t high,reg,med miscIndications:Pe ripheral edema Wear as much as possible 2 each 1 05/28/2021 4 doxycycline hyclate 100 mg capsule 08/14/2022 3 dulaglutide (TRULICITY) 1.5 mg/0.5 mL pen injectorIndication s:Type 2 diabetes mellitus with diabetic neuropathy, with long-term current use of insulin (HCC) Inject 0.5 mL (1.5 mg total) under the skin every 7 days 6 mL 1 07/30/2022 3 famotidine (PEPCID) 10 mg tabletIndications: Gastroesophageal reflux disease, unspecified whether esophagitis present Take 1 tablet (10 mg total) by mouth nightly 90 tablet 02/13/2022 3 ferrous sulfate 325 mg (65 mg of elemental iron) tabletIndications: Anemia due to chronic kidney disease, unspecified CKD stage Take 1 tablet (325 mg total) by mouth daily with breakfast 90 tablet 1 07/30/2022 3 flash glucose scanning reader (FreeStyle Madhav 2 [place]) miscIndications:Ty pe 2 diabetes mellitus with diabetic neuropathy, with long-term current use of insulin ([facility]) Use to continually monitor glucose 1 each 10/01/2021 3 flash glucose sensor (FreeStyle Madhav 2 Sensor) kitIndications:Typ e 2 diabetes mellitus with diabetic neuropathy, with long-term current use of insulin ([facility]) Use to continually monitor glucose, change every 14 days 6 kit 3 10/01/2021 3 furosemide (LASIX) 40 mg tablet Take 1 tablet (40 mg total) by mouth 2 (two) times a day 60 tablet 11 10/16/2021 3 insulin glargine 100 unit/mL (3 mL) pen for injectionIndicatio ns:Type 2 diabetes mellitus with diabetic neuropathy, with long-term current use of insulin ([facility]) Inject 25 Units under the skin nightly 45 mL 4 08/07/2022 3 insulin lispro (HumaLOG, ADMELOG) 100 unit/mL pen for injection Inject 12 Units under the skin 3 (three) times a day with meals 33 mL 1 04/02/2022 3 lancets miscIndications:Un controlled type 2 diabetes mellitus with hyperglycemia ([facility]) Check blood sugar up to 3 times a day 100 each 3 11/13/2020 3 miscellaneous medical supply (Blood Pressure Cuff) miscIndications:Hy pertension associated with diabetes ([facility]) Use to check blood pressure daily 1 each 1 10/07/2021 3 [employer] VoiceTouch Verio test strips stripIndications:U ncontrolled type 2 diabetes mellitus with hyperglycemia (HCC) TEST 3 TO 4 TIMES DAILY 400 each 1 06/25/2021 3 polyethylene glycol (MIRALAX) 17 gram packet Take 1 packet (17 g total) by mouth daily 08/14/2021 3 pregabalin (LYRICA) 150 mg capsuleIndications :Other diabetic neurological complication associated with type 2 diabetes mellitus (HCC) Take 1 capsule (150 mg total) by mouth nightly 30 capsule 2 05/26/2022 3 risperiDONE (RisperDAL) 2 mg tablet Take 1 tablet (2 mg total) by mouth nightly 30 tablet 11 08/07/2021 3 risperiDONE (RisperDAL) 2 mg tablet Take 1 tablet (2 mg total) by mouth 12/21/2021 3 syringe with needle, insulin (INSULIN SYRINGE-NEEDLE U-100 MISC) 3 times a day 09/12/2017 3 documented as of this encounter Ordered Prescriptions Prescription Sig Dispense Quantity Refills Last Filled Start Date End Date amoxicillin-clavul anate (Augmentin) 500-125 mg per tablet Take 1 tablet by mouth every 12 (twelve) hours for 10 days 20 tablet 09/04/2022 09/14/2022 documented in this encounter Discharge Disposition Disposition Code Departure Means Destination Comment s Discharge to home or self care documented in this encounter ED Notes * Lucy Lucero MD - 09/04/2022 1:01 PM CDT HPI Chief Complaint Patient presents with Weakness - Generalized Daughter states that this morning pt was weak this morning and had some back pain. Daughter states pt has an open wound to the right big toe. 71-year-old female with past medical history significant for Parkinson's, history of diabetes, history of dementia, hypertension, hyperlipidemia brought to the emergency room by daughter who states that this morning patient was weak and had some back pain patient's daughter also states patient has an open wound to the right big toe for which she is been seeing a podiatry. Patient is feeling weak and the daughter states sometimes she feels like that when she has a UTI patient has resting tremor.Patient denies fever chills History provided by: Patient Patient History: Patient Active Problem List Diagnosis Date Noted Parkinsonism ([facility]) 08/14/2022 Pulmonary nodule 11/16/2021 Physical deconditioning 11/15/2021 Left leg DVT ([facility]) ([facility]) 11/15/2021 Toe necrosis ([facility]) ([facility]) 10/07/2021 Anemia 09/07/2021 Volume overload 09/06/2021 Retention of urine, unspecified 08/22/2021 Unspecified osteoarthritis, unspecified site 08/22/2021 Unsteadiness on feet 08/22/2021 Weakness 08/22/2021 Late onset Alzheimer's dementia without behavioral disturbance ([facility]) 08/19/2021 Delirium 08/07/2021 Encounter for Medicare annual wellness exam 01/08/2021 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 2 diabetes mellitus ([facility]) ([facility]) 12/11/2020 Dementia ([facility]) 10/10/2020 Encounter for psychiatric assessment 10/10/2020 Schizoaffective disorder, bipolar type ([facility]) ([facility]) 10/10/2020 Hyperlipidemia associated with type 2 diabetes mellitus ([facility]) 04/03/2020 Iron deficiency anemia 04/02/2020 GERD (gastroesophageal reflux disease) 04/02/2020 Amputation of toe of right foot ([facility]) ([facility]) 01/19/2020 Hypertension associated with diabetes ([facility]) 12/13/2019 Schizoaffective disorder, bipolar type ([facility]) ([facility]) 08/30/2019 Type 2 diabetes mellitus with diabetic neuropathy, with long-term current use of insulin ([facility]) ([facility]) 08/30/2019 Diabetic neuropathy ([facility]) Past Medical History: Diagnosis Date Arthritis Dementia ([facility]) Depression Diabetic neuropathy ([facility]) Hyperlipidemia Hypertension Renal disorder Schizophrenia ([facility]) [...] Social History Social History Narrative Originally From [place] Grew up with her mom and dad. 12th grade - graduated. [employer]. [employer] - none. [employer]. I never worked. Single. Review of Systems Review of Systems Constitutional: Negative for chills, fatigue and fever. HENT: Negative for congestion, ear discharge, ear pain, postnasal drip, sinus pressure, sinus pain and sore throat. Eyes: Negative for discharge, redness and visual disturbance. Respiratory: Negative for cough, chest tightness, shortness of breath and wheezing. Cardiovascular: Negative for chest pain and palpitations. Gastrointestinal: Negative for abdominal pain, blood in stool, diarrhea, nausea and vomiting. Endocrine: Negative for cold intolerance, polydipsia and polyuria. Genitourinary: Negative for difficulty urinating, dysuria, flank pain, hematuria and urgency. Musculoskeletal: Negative for back pain, joint swelling, myalgias, neck pain and neck stiffness. Skin: Negative for pallor and rash. Has a right great toe wound Allergic/Immunologic: Negative for environmental allergies and food allergies. Neurological: Positive for weakness. Negative for dizziness, facial asymmetry, speech difficulty, light-headedness, numbness and headaches. Hematological: Negative for adenopathy. Psychiatric/Behavioral: Negative for agitation, confusion and hallucinations. All other systems reviewed and are negative. Physical Exam ED Triage Vitals [09/04/22 1052] Temp Pulse Resp BP SpO2 36.7 ??C (98.1 ??F) 72 16 134/60 96 % Temp src Heart Rate Source Patient Position BP Location FiO2 (%) -- -- -- -- -- Height Height Method Weight Weight Method 1.575 m (5' 2 ) -- 68 kg (150 lb) -- Physical Exam Vitals and nursing [...] cervical adenopathy. Skin: General: Skin is dry. Findings: Erythema present. Comments: Slightly erythematous right great toe wound. Sensation is intact normal pedal pulse Neurological: Mental Status: She is alert and oriented to person, place, and time. Cranial Nerves: No cranial nerve deficit. Sensory: No sensory deficit. Motor: No abnormal muscle tone. Coordination: Coordination normal. Deep Tendon Reflexes: Reflexes normal. Psychiatric: Behavior: Behavior normal. MDM Medical Decision Making Amount and/or Complexity of Data Reviewed Labs: ordered. Radiology: ordered. ED Course as of 09/04/221748 Time: 09/04 1748 Comment: Discussed the lab and imaging results. Patient's foot x-ray is normal white count is 10.6 patient had a urinary tract infection patient was given 1 dose of IV Zosyn will discharge patient home with Augmentin patient is advised to follow-up with the wound care as scheduled advised to come back to the emergency room with any worsening symptoms patient and family agrees By: Lucy Lucero MD Final diagnoses: Open wound of right great toe Urinary tract infection without hematuria, site unspecified Lucy Lucero MD 09/04/22 1303 Lucy Lucero MD 09/04/22 1750 documented in this encounter Miscellaneous Notes * Plan of Care - Mane Yadav RN - 09/04/2022 3:45 PM CDT ED CM received notification of patient with recent admission in the ED. CM Reviewed patients chart and spoke with patient. Recent admission dates: 08/01-08/07 Recent admission diagnosis: AMS Location of discharge from previous admission: Home Patient taking medications as prescribed? Yes Did patient follow up with PCP/Specialist? Yes PCP on 08/14 and has future appt with nephrology Readmission risk score from previous admission: 39% Reason for current ED visit: Weakness Patient reports she has been complaint with her medications and has been able to eat and drink adequately. Jean-Claude Yadav RN, BSN, MHA [facility], Emergency Department [phone] documented in this encounter Plan of Treatment Upcoming Encounters Date Type Department Care Team (Latest Contact Info) Description 07/13/2024 9:00 AM DEEP FAT FRY COOK Hospital Encounter [facility] [address] [place] [address] Jaya Grier MD [facility] [facility] [address] [place] [address] [place] [address] 07/13/2024 9:00 AM DEEP FAT FRY COOK - 07/13/2024 9:30 AM DEEP FAT FRY COOK Surgery [facility] [address] [place] [address] Jaya Grier MD [address] [facility] [address] [place] [address] [place] [address] ESOPHAGOGASTRODUODENOSCOPY Scheduled Procedures Name Priority Associated Diagnoses Date/Ti nc ESOPHAGOGASTRODUODENOSCOPY Anemia, unspecified type Gastritis without bleeding, unspecified chronicity, unspecified gastritis type 07/13/2024 9:00 AM DEEP FAT FRY COOK COLONOSCOPY Iron deficiency anemia due to chronic blood loss documented as of this encounter Procedures Procedure Name Priority Date/Time Associated Diagnosis Comments POCT GLUCOSE DEVICE Routine 09/04/2022 3 :13 PM CDT URINALYSIS AND REFLEX TO MICROSCOPIC AND CULTURE STAT 09/04/2022 2:29 PM CDT URINALYSIS, MICROSCOPIC ONLY STAT 09/04/2022 2:29 PM CDT URINE CULTURE STAT 09/04/2022 2:29 PM CDT XR FOOT RIGHT 3 OR MORE VIEWS ED 09/04/2022 12:30 PM CDT EGFR STAT 09/04/2022 11:30 AM CDT DIFFERENTIAL AUTO STAT 09/04/2022 11: 30 AM CDT CBC WITH AUTO DIFFERENTIAL STAT 09/04/2022 11:30 AM CDT COMPREHENSIVE METABOLIC PANEL STAT 09/04/2022 11:30 AM CDT documented in this encounter Results * POCT glucose (09/04/2022 3:13 PM CDT) Pathologist [facility] Glucose, POC 140 70 - 199 mg/dL NILSA Blood 09/04/2022 3:13 PM CDT 09/04/2022 3:13 PM CDT Lucy Lucero MD LAB POCT ORDERABLES - D EVICE Final Result NILSA [address] Department [place] [address] * Urine culture Urine (09/04/2022 2:29 PM CDT) Report Final Report: Less than 100,000 colonies/mL (clinically insignificant growth based on current clinical standards) NILSA Comment:Testing performed by : [facility], [address], [place]., [address] Organism (CLINICALLY INSIGNIFICANT GROWTH NILSA Urine 09/04/2022 2:29 PM CDT 09/04/2022 5:28 PM CDT Narrative NILSA - 09/05/2022 7:14 PM CDT Urine culture reflexed based upon urinalysis results. Testing performed by [facility] Microbiology Laboratory ([phone]) Lucy Lucero MD LAB MICROBIOLOGY - GENE RAL ORDERABLES Final Result Performing Organization Address [facility]/ZIP Co de Phone Number NILSA MCDONNELL [address] Department [place] [address] * (ABNORMAL) Urinalysis, microscopic only (09/04/2022 2:29 PM CDT) WBC, ur 21-50(A) 0 - 5 /HPF [facility] RBC, ur 0-2 0 - 2 /HPF [facility] Culture Reflex Comment Reflex to urine culture will be performed. [facility] Urine 09/04/2022 2:29 PM CDT 09/04/2022 2:34 PM CDT Lucy Lucero MD LAB URINE ORDERABLES Fi nal Result Performing Organization Address [facility] Co de Phone Number NILSA MCDONNELL [address] Department [place] [address] * (ABNORMAL) Urinalysis reflex to microscopic and culture Urine (09/04/2022 2:29 PM CDT) Color, ur Straw Yellow [facility] Clarity, ur Clear Clear [facility] Specific gravity, ur 1.006 1.003 - 1.030 [facility] pH, urine 5.0 [facility] Protein, ur ql 2+(A) Negative [facility] Glucose, ur ql 1+(A) Negative [facility] Ketones, ur Negative Negative [facility] Bilirubin, ur Negative Negative [facility] Blood, ur 1+(A) Negative [facility] Urobilinogen, ur <2.0 <2.0 mg/dL [facility] Nitrite, ur Negative Negative [facility] Leukocyte esterase, ur 2+(A) Negative [facility] UA reflex comment Reflex to microscopic UA will be performed. [facility] Urine 09/04/2022 2:29 PM CDT 09/04/2022 2:34 PM CDT Narrative NILSA MCDONNELL - 09/04/2022 2:40 PM CDT ?? Urine pH is affected by diet, medications, systemic acid-base disturbances, and renal tubular function. ??pH may affect urinary stone formation. ??For example, urine pH below 6.0 may help reduce the tendency for calcium phosphate stones and pH greater than 6.0 may reduce the tendency for uric acid stone formation. Source: [employer]. Last revised 07-02-2017 us Lucy Lucero MD LAB MICROBIOLOGY - GENE RAL ORDERABLES Final Result NILSA MCDONNELL [address] Department [place] [address] * XR Foot Right 3+ views (09/04/2022 12:30 PM CDT) Anatomical Region Laterality Modality Lower Extremities, Foot Right Computed Radiography 09/04/2022 12:4 7 PM CDT Impressions 09/04/2022 12:47 PM CDT Amputation 4th digit. ??No evidence to suggest osteomyelitis Electronically signed by: Seth Sanders M.D. Narrative 09/04/2022 12:47 PM CDT EXAMINATION: XR FOOT RIGHT 3 OR MORE VIEWS HISTORY: Diabetic to previous surgery FINDINGS: Compared with study of 12/14/2019, interval amputation of the 4th digit through the 4th metatarsal neck. ??Sharp margination of the bones. ??No radiographic evidence of osteomyelitis. ??No bony destruction or periosteal new bone formation. ??Hallux valgus deformity with degeneration at the 1st metatarsophalangeal joint. Arterial calcifications. ??Mild soft tissue swelling Procedure Note Seth Sanders MD - 09/04/2022 EXAMINATION: XR FOOT RIGHT 3 OR MORE VIEWS HISTORY: Diabetic to previous surgery FINDINGS: Compared with study of 12/14/2019, interval amputation of the 4th digit through the 4th metatarsal neck. Sharp margination of the bones. No radiographic evidence of osteomyelitis. No bony destruction or periosteal new bone formation. Hallux valgus deformity with degeneration at the 1st metatarsophalangeal joint. Arterial calcifications. Mild soft tissue swelling IMPRESSION: Amputation 4th digit. No evidence to suggest osteomyelitis Electronically signed by: Seth Sanders M.D. us Lucy Lucero MD IMG XR PROCEDURES Final Result * eGFR (09/04/2022 11:30 AM CDT) eGFR 31 mL/min/1. 73 m2 NILSA MCDONNELL Comment: Interpretive [...] interpretive data was last reviewed 2021. Blood 09/04/2022 11:3 0 AM CDT 09/04/2022 11:32 AM CDT us Alejandro Guillaume MD LAB BLOOD ORDERABLES F inal Result NILSA [address] Department [place] [address] * (ABNORMAL) Differential, auto (09/04/2022 11:30 AM CDT) Neutrophil abs 7.9(H) 1.7 - 6.5 K/cumm [facility] Imm gran abs 0.0 0.0 - 0.1 K/cumm [facility] Lymphocyte abs 2.1 0.8 - 3.3 [facility] Monocyte abs 0.5 0.2 - 0.8 K/cumm [facility] Eosinophil abs 0.1 0.0 - 0.5 K/cumm [facility] Basophil abs 0.0 0.0 - 0.1 K/cumm [facility] Neutrophil pct 74.6 % C[facility] Comment: Interpretive Data Percent cell count reference ranges are not reported, since discordance with absolute values may lead to misinterpretation of CBC data. Current Interpretive Data was last revised on 2017. Imm gran pct 0.3 % [facility] Comment: Interpretive Data Percent cell count reference ranges are not reported, since discordance with absolute values may lead to misinterpretation of CBC data. Current Interpretive Data was last revised on 2017. Lymphocyte pct 19.8 % [facility] Comment: Interpretive Data Percent cell count reference ranges are not reported, since discordance with absolute values may lead to misinterpretation of CBC data. Current Interpretive Data was last revised on 2017. Monocyte pct 4.2 % [facility] Comment: Interpretive Data Percent cell count reference ranges are not reported, since discordance with absolute values may lead to misinterpretation of CBC data. Current Interpretive Data was last revised on 2017. Eosinophil pct 0.9 % [facility] Comment: Interpretive Data Percent cell count reference ranges are not reported, since discordance with absolute values may lead to misinterpretation of CBC data. Current Interpretive Data was last revised on 2017. Basophil pct 0.2 % [facility] Comment: Interpretive Data Percent cell count reference ranges are not reported, since discordance with absolute values may lead to misinterpretation of CBC data. Current Interpretive Data was last revised on 2017. Blood 09/04/2022 11:3 0 AM CDT 09/04/2022 11:33 AM CDT us Alejandro Guillaume MD LAB BLOOD [place] [address] [address] Department [place] [address] * (ABNORMAL) Comprehensive metabolic panel (09/04/2022 11:30 AM CDT) Sodium 144 135 - 145 mmol/L [facility] Potassium, pl 4.3 3.3 - 4.9 mmol/L [facility] Chloride 111(H) 97 - 110 mmol/L [facility] CO2 22 22 - 32 mmol/L [facility] Anion gap 11 2 - 15 mmol/L [facility] BUN 47(H) 8 - 25 mg/dL [facility] Creatinine 1.73(H) 0.60 - 1.10 mg/dL [facility] Glucose 156 70 - 199 mg/dL [facility] Comment: [...] 9.3 8.5 - 10.3 mg/dL [facility] Bilirubin, total 0.2 0.1 - 1.2 mg/dL [facility] Protein, pl 6.9 6.5 - 8.5 g/dL [facility] Albumin 3.2(L) 3.5 - 5.0 g/dL [facility] Alk phos 145(H) 40 - 130 Units/L [facility] ALT 14 7 - 45 Units/L [facility] AST 19 10 - 45 Units/L [facility] Blood 09/04/2022 11:3 0 AM CDT 09/04/2022 11:32 AM CDT Lucy Lucero MD LAB BLOOD ORDERABLES Fi nal Result Performing Organization Address City/[facility] de Phone Number NILSA MCDONNELL [address] Department [address] [place] [address] * (ABNORMAL) CBC with auto differential (09/04/2022 11:30 AM CDT) WBC 10.6(H) 3.8 - 9.9 K/cumm [facility] Hgb 8.8(L) 11.9 - 15.5 g/dL [facility] Hct 28.2(L) 35.6 - 45.5 % [facility] Plt 216 150 - 400 K/cumm [facility] MPV 10.8 9.1 - 12.3 fL [facility] RBC 2.97(L) 3.90 - 5.20 M/cumm [facility] MCV 94.9 81.3 - 96.4 fL [facility] MCH 29.6 27.1 - 33.3 pg [facility] MCHC 31.2(L) 32.3 - 35.7 g/dL [facility] RDW CV 15.5(H) 11.1 - 14.9 % [facility] RDW SD 53.2(H) 35.7 - 48.1 fL [facility] NRBC abs 0.00 0.00 - 0.01 K/cumm [facility] Blood 09/04/2022 11:3 0 AM CDT 09/04/2022 11:33 AM CDT Lucy Lucero MD LAB BLOOD ORDERABLES nal Result Performing Organization Address [facility] de Phone Number NILSA MCDONNELL [id number] [address] Department of [employer] [place], [place] [id number] documented in this encounter Visit Diagnoses Diagnosis Open wound of right great toe- Primary Urinary tract infection without hematuria, site unspecified Anemia, unspecified type Gastritis without bleeding, unspecified chronicity, unspecified gastritis type documented in this encounter Administered Medications Inactive Administered Medications - up to 3 most recent administrations Medication Order MAR Action Action Date Dose Rate Site piperacillin-tazobactam (ZOSYN) 3.375 g in sodium chloride 0.9% 100 mL IVPB 3.375 g, intravenous, at 200 mL/hr, Administer over 30 Minutes, Once, On Kellie 09/04/22 at 1658, For 1 dose, Mini-Bag Plus bag, Indications: Skin/Soft Tissue InfectionIndications:Skin/So ft Tissue Infection New Bag 09/04/2022 5:14 PM CDT 3.375 g 200 mL/hr documented in this encounter Active and Recently Administered Medications Times are shown in CDT. Scheduled Medication Order 09/02/2022 09/03/2022 09/04/2022 piperacillin-tazobactam (ZOSYN) 3.375 g in sodium chloride 0.9% 100 mL IVPB (COMPLETED) 3.375 g, intravenous, at 200 mL/hr, Administer over 30 Minutes, Once, On Kellie 09/04/22 at 1658, For 1 dose, Mini-Bag Plus bag, Indications: Skin/Soft Tissue Infection 1714 (New Bag - Prov ider: Jessy Best RN)1747 (Stopped - Provider: Jessy Best RN) documented in this encounter Care Teams Paintings Restorer Relationship Specialty Start Date End Date Cherelle Corcoran MD PCP - General Family Medicine 08/30/19 Mark Queen MD Consulting Physician Infectious Diseases 01/10/20 Anam Costa LCSW Residential Leasing Agent 08/08/22 02/18/23 Melania Lee RN [address] [place] [address] [address] [place] [id number] Manager Grant 08/22/22 12/07/22 documented as of this encounter
--- OUTSIDE RECORDS SUMMARY | 2024-07-04 04:11 | XMS_ITS | Encounter Summary ---
Author Organization [facility] Healthcare Address [address] [place] [address] Care Team Providers Care Sales Enablement Analyst Name Role Phone Cherelle Corcoran MD Primary Care Pro vider Mark Queen MD Unavailable [phone] Anam CostaW Unavailable UnavailMelania Rae RN Unavailable [phone] Reason for Visit * Reason Comments OT Treatment Encounter Details Date Type Department Care Team (Late st Contact Info) Description 09/26/2022 8:00 AM CDT Therapy [facility] OP Occup Therapy [address] [place] [id number] Jerel Cardenas, MOE Parkinsonism, unspecified Parkinsonism type (HCC) (Primary [...] slept in a alf (including now)? 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 OCCUPATIONAL THERAPY DAILY TREATMENT NOTE 09/26/2022 Time In: 799 Time out: 899 Total Treatment time: 60 minutes Barbara Nadine BanksChakraborty 1950 71 y.o. female Cherelle Corcoran MD [address] [address] ICD-9-CM ICD-10-CM 1. Parkinsonism, unspecified Parkinsonism type (HCC) 332.0 G20 TREATMENT DIAGNOSIS: decreased balance, decreased ADL/IADL skills, decreased BUE ROM/strength/endurance/coordination, decreased amplitude, decreased safety, decreased functional transfers, decreased functional mobility SUBJECTIVE: Patient reports: I feel drowsy, just tired. RE: activity tolerance this date. Discomfort reported in R shoulder this date. Precautions: fall OBJECTIVE: Seated and standing exercises completed focusing on amplitude, balance, co- ordination. Verbal/visual modeling provided by this therapist Exercise Reps Cue level for amplitude of movement Shaping required Demonstration of movement needed Comments Floor to Ceiling 8 max yes yes Completed in seated. Side to Side 8 max yes yes Completed in seated. Forward Step and Reach 8 max yes yes Completed in seated. Sideways Step and Reach 8 max yes yes Completed in seated. Backward Step and Reach 8 max yes yes Max difficulty noted Forward Rock and Reach 8 max yes yes Max difficulty noted; max cueing to complete heel/toe alternating this date. Sideways Rock and Reach 8 max yes yes Completed in seated. Pt completed sit <> stand x 5 repetitions this date with mod vc's to use BUE to push off of seated surface rather than pulling up with FWW. Replaced one tennis ball on walker this date, could not find a second tennis ball (current ones worn through with no use). Completed supine <> seated EOM x 3 repetitions with min/mod difficulty pushing off of LUE. Amb to main lobby with FWW, no further questions/concerns at this time. ASSESSMENT: Pt tolerated treatment session fair on this date. Pt requires max vc's to sequence through seated amplitude/coordination/balance activities this date. Max difficulty with coordination of BUE/BLE on this date, graded activities to complete BUE/BLE separately to begin to address coordinated exercises. Pt demo good bed mobility skills this date, able to use logrolling technique to push to seated, max cues to use seated surface to push up on rather than pulling on walker for safety. Pt will con't to benefit from skilled OT to increase amplitude,coordination, functional mobility, functional transfers, safety, and quality of life. STGS to be met by 09/30/22 1. Patient complete putty exercises with SBA/min cues for hand strengthening. 2. Patient will complete table slides with BUES with SBA from caregiver for improved shoulder ROM. (Progressing 09/26/2022) 3. Patient to complete seated LSVT BIG [...] Order expiration: 2022 Next progress/re-cert due: 09/30/2022 Jerel Cardenas OTR/L [facility] [email or web address] documented in this encounter Plan of Treatment Upcoming Encounters Date Type Department Care Team (Latest Contact Info) Description 07/13/2024 9:00 AM RETIREMENT MANAGER Hospital Encounter [facility] [address] [place] [address] Jaya Grier MD [address] [place] [address] 07/13/2024 9:00 AM RETIREMENT MANAGER - 07/13/2024 9:30 AM RETIREMENT MANAGER Surgery [facility] [address] [place] [address] Jaya Grier MD [address] [place] [address] ESOPHAGOGASTRODUODENOSCOPY Scheduled Procedures Name Priority Associated Diagnoses Date/Ti me ESOPHAGOGASTRODUODENOSCOPY Anemia, unspecified type Gastritis without bleeding, unspecified chronicity, unspecified gastritis type 07/13/2024 9:00 AM RETIREMENT MANAGER COLONOSCOPY Iron deficiency anemia due to chronic blood loss documented as of this encounter Visit Diagnoses Diagnosis Parkinsonism, unspecified Parkinsonism type (HCC)- Primary Anemia, unspecified type Gastritis without bleeding, unspecified chronicity, unspecified gastritis type documented in this encounter Care Teams Sales Enablement Analyst Relationship Specialty Start Date End Date Cherelle Corcoran MD PCP - General Family Medicine 08/30/19 Mark Queen MD Consulting Physician Infectious Diseases 01/10/20 Anam Costa LCSW Behavioral Sciences Instructor 08/08/22 02/18/23 Melania Lee RN [address] [place] [address] [address] [place] [address] Parachute Repairer 08/22/22 12/07/22 documented as of this encounter
--- OUTSIDE RECORDS SUMMARY | 2024-07-04 04:11 | XMS_ITS | Encounter Summary ---
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 Name Role Phone Duane Corcoran MD Primary Care Pro vider Mark Queen MD Unavailable [phone] Anam Costa LCSW Unavailable Unavailabl Melania Moncada RN Unavailable [phone] Reason for Visit * Reason Comments Altered Mental Status * Auth/Cert (Routine) Specialty Diagnoses / Procedures Referred By Contac t Referred To Contact Diagnoses Urinary tract infection without hematuria, site unspecified Altered mental status, unspecified altered mental status type Procedures NA Referral ID Status Reason Start Date Expiration Date Visits Re quested Visits Authorized [id number] 1 1 Encounter Details Date Type Department Care Team (Late st Contact Info) Description 10/02/2022 1:39 PM CDT - 10/06/2022 9:53 PM CDT Hospital Encounter [facility] [address] [place] [address] [place] [address] [address] [facility] [place] [address] [place] [address] [address] [place] [address] [facility] [address] [place], [place] [id number] [place] [address] [facility] [address] [place] [address] Cristó[place] [address] [facility] [address] [place], [place] [id number] Altered mental status, unspecified altered mental status type (Primary Dx); Urinary tract infection without hematuria, site unspecified; Wheezing; Type 2 diabetes mellitus with diabetic neuropathy, with long-term current use of insulin ([facility]) ([facility]); Gastroesophageal reflux disease, unspecified whether esophagitis present Discharge Disposition: Discharge to home or self [...] week 10/03/2022 How often do you attend [facility] services? More than 4 [...] slept in a long-term (including now)? 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 Gender Identity Female 02/08/2020 6:39 PM CDT Sexual Orientation Not on file documented as of this encounter Last Filed Vital Signs Vital Sign Reading Time Taken Comments Blood Pressure 133/60 10/06/2022 4:07 PM CDT Pulse 74 10/06/2022 4:07 PM CDT Temperature 36.7 ??C (98.1 ??F) 10/06/2022 4:07 PM CD T Respiratory Rate 19 10/06/2022 4:07 PM CDT Oxygen Saturation 98% 10/06/2022 4:07 PM CDT Inhaled Oxygen Concentration - - Weight 71.5 kg (157 lb 11.2 oz) 10/02/2022 8:37 PM CDT Height 157.5 cm (5' 2 ) 10/02/2022 6:00 PM CDT Body Mass Index 28.84 10/02/2022 6:00 PM CDT documented in this encounter Discharge Summaries * Cristóbal Gould DO - 10/06/2022 12:52 PM CDT Images from the original note were not included. Inpatient Discharge Summary Patient Name - Barbara Chakraborty Patient Age - 71 yrs Patient - [id number] [facility] - [id number] Document Creation Date: 10/06/2022 Admitting Provider, MD: Gill Gamboa MD Discharge Provider, MD: Cristóbal Gould DO Primary Care Physician at Discharge: Duane Corcoran MD [phone] Admission Date: 10/02/2022 Discharge Date/time: 10/06/2022 Admission Location: [facility] LOS - LOS: 4 days DETAILS OF HOSPITAL STAY Hospital Problems/Diagnoses Principal Problem: Severe Sepsis secondary to Acute Cystitis without Hematuria with resulting Acute Toxic Encephalopathy in the setting of 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 female admitted to [facility] on 10/02/2022. Pt history obtained from review of medical records in [facility] and interview with patient. Pt lives with daughter. Pt with dementia, schizophrenia, DM type 2, HTN, HLD, and CKD. She has a wound on right great toe. At wound clinic today, she had low O2 sats so was sent to the ER. She has also had some increased confusion. She knows her name but is confused about everything else. She keeps telling me sheneeds to get stuff from her apartment because she is moving. No history of fever or chills. No other information available as she is not a good historian. In the ER, she is not hypoxic but appears chris dehydrated with dry mucus membranes. She has been started on IVF's. She has a baseline Cr of about 1.7 and her Cr is now elevated to 1.96. Her BS is also elevated to 227. She appears to be septicwith a lactate of 2.3 and WBC count of 11.2. Her CXR shows no active pulmonary disease. UA does suggest infection with 4+ LE and >50 WBC. Pt started on IV Rocephin. She will now be admitted for further treatment and evaluation. Hospital Course: She was started on IV Rocephin. Urine culture never grew. She did have a 1/2 positive blood culturefor Strep mitis which was ruled to be a contaminant. Her mental status improved expectedly. Hospitalist service re-evaluated the patient on October 05 and found her to be close to her baseline. She was monitored overnight. She set up for discharge home in stable condition October 06, 2022. Discharge Details Physical Exam at Discharge: Discharge Condition: good Pulse: 72 Resp: 20 BP: (!) 188/82 Temp: 36.6 ??C (97.8 ??F) Weight: 71.5 kg (157 lb 11.2 oz) Pertinent Exam Findings at Discharge: None Discharge Disposition: Discharge to home or self care Code Status at Discharge: Full Code Active Issues & Recommended Plan for Follow-up: PCP Allergies: Patient has no known allergies. Discharge Medications: Your medication list START taking these medications Instructions Last Dose Given Next Dose Due HumaLOG 200 unit/mL (3 mL) pen for injection Generic drug: insulin lispro Replaces: insulin lispro 100 unit/mL pen for injection 12 Units, subcutaneous, 3 times daily with meals, For Glucose <140: 0 units(u), 140-174: 2u, 175-199: 4u, 200-249: 6u, 250-299: 8u, 300-349: 10u, 350+: 12u CHANGE how you take these medications Instructions Last Dose Given Next Dose Due furosemide 40 mg tablet Commonly known as: LASIX What changed: when to take this reasons to take this 40 mg, oral, Daily PRN polyethylene glycol 17 gram packet Commonly known as: MIRALAX What changed: when to take this reasons to take this 17 g, oral, Daily PRN CONTINUE taking these medications Instructions Last Dose Given Next Dose Due acetaminophen 325 mg tablet Commonly known as: TYLENOL 650 mg, oral, Every 6 hours PRN albuterol HFA 90 mcg/actuation inhaler Commonly known as: ProAir HFA 2 puffs, inhalation, Every 4 hours PRN apixaban 5 mg tablet Commonly known as: ELIQUIS 5 mg, oral, Every 12 hours atorvastatin 20 mg tablet Commonly known as: LIPITOR 20 mg, oral, Daily BD Arlyn 2nd Gen Pen Needle 32 gauge x needle Generic drug: pen needle, diabetic USE TO INJECT BASAGLAR EVERY NIGHT AT BEDTIME benztropine 1 mg tablet Commonly known as: COGENTIN 1.5 mg, oral, Nightly Blood Pressure Cuff misc Generic drug: miscellaneous medical supply Use to check blood pressure daily blood pressure monitor kit Check BP as instructed carvediloL 6.25 mg tablet Commonly known as: COREG 6.25 mg, oral, 2 times daily with meals (bkfst, dinner) conner.stocking,thigh,reg,med misc Wear as much as possible dulaglutide 1.5 mg/0.5 mL pen injector Commonly known as: TRULICITY 1.5 mg, subcutaneous, Every 7 days famotidine 10 mg tablet Commonly known as: PEPCID 10 mg, oral, Nightly FreeStyle Madhav 2 [place] misc Doctor's comments: May or may not need Generic drug: flash glucose scanning reader Use to continually monitor glucose FreeStyle Madhav 2 Sensor kit Doctor's comments: Type 2 diabetic, on 2 insulin Generic drug: flash glucose sensor Use to continually monitor glucose, change every 14 days insulin glargine 100 unit/mL (3 mL) pen for injection Commonly known as: LANTUS, BASAGLAR, SEMGLEE 25 Units, subcutaneous, Nightly INSULIN SYRINGE-NEEDLE U-100 MISC 3 times a day lancets misc Check blood sugar up to 3 times a day OneTouch Verio test strips strip Doctor's comments: Patient requests 90 days supply Generic drug: blood glucose diagnostic TEST 3 TO 4 TIMES DAILY pregabalin 150 mg capsule Commonly known as: LYRICA 150 mg, oral, Nightly risperiDONE 2 mg tablet Doctor's comments: Discontinue Haldol Commonly known as: RisperDAL 2 mg, oral, Nightly STOP taking these medications ferrous sulfate 325 mg (65 mg of elemental iron) tablet insulin lispro 100 unit/mL pen for injection Commonly known as: HumaLOG, ADMELOG Replaced by: HumaLOG 200 unit/mL (3 mL) pen for injection Where to Get Your Medications These medications were sent to [id number] - [place], [place] - [address] [facility] [address], [place] [address] albuterol HFA 90 mcg/actuation inhaler carvediloL 6.25 mg tablet dulaglutide 1.5 mg/0.5 mL pen injector risperiDONE 2 mg tablet Information about where to get these medications is not yet available Ask your nurse or doctor about these medications furosemide 40 mg tablet HumaLOG 200 unit/mL (3 mL) pen for injection polyethylene glycol 17 gram packet Time Spent in Discharge Process: I have spent 20 minutes on discharge planning activities. Time spent was on Coordination of care, Follow up , and discharge exam Test Results Pending at Discharge (If Blank, None Found): Pending Labs Order Current Status Blood culture Blood Antecubital, right Preliminary result Blood culture Blood Forearm, right Preliminary result Blood culture Blood Hand, right Preliminary result Operative Procedures Performed (If Blank, None Found): Outpatient Follow-Up: Future Appointments Date Time Provider Department Center 10/07/2022 3:00 PM Jerel Cardenas OT [facility] ON OP OT [facility] ORT NEUR 10/09/2022 12:30 PM [facility] OP WOUND CARE [facility] WND [facility] Main 10/14/2022 2:00 PM Jerel Cardenas OT [facility] ON OP OT [facility] ORT NEUR 10/16/2022 8:00 AM Macey Ellis NP [facility] 10/16/2022 9:00 AM Jerel Cardenas OT [facility] ON OP OT [facility] ORT NEUR 10/21/2022 8:00 AM Jerel Cardenas OT [facility] ON OP OT [facility] ORT NEUR 10/21/2022 4:20 PM Anant Kauffman MD EML CAM 5C [facility] EML 10/27/2022 8:00 AM Jerel Cardenas, MOE [facility] ON OP OT [facility] ORT NEUR 12/10/2022 1:15 PM Santo Vail MD MB CARD [facility] Specialty 02/18/2023 12:15 PM Nikhil Jones MD MB CARD E Specialty 03/11/2023 1:45 PM Markie Ryan MD [id number] Specialty Contact Information for Follow-ups Duane Corcoran MD Specialty: Family Medicine Relationship: PCP - General [address] [place] [address] Next Steps: Follow up Instructions: Follow-up with your primary care physician in the next 7 days. Questions: Instructions for follow-up (appointment date and time): Follow-up with your primary care physician in the next 7 days. To provider: DUANE CORCORAN Please schedule an appointment with the following provider(s): Duane Corcoran MD [address] [place] [address] Follow-up with your primary care physician in the next 7 days. ANCILLARY INFORMATION Other Procedures & Diagnostic Tests: ECG 12 lead Result Date: 10/03/2022 Vent Rate: 83 bpm RR Interval: 716 msec VT Interval: 144 msec QRS Duration: 81 msec QT Interval: 375 msec QTC Interval: 415 msec P-R-T [place]: 51 - -17 - 40 degrees SINUS RHYTHM POSSIBLE ANTERIOR MYOCARDIAL INFARCTION , OF INDETERMINATE AGE Electronically Signed By: Ilan Ghotra MD, [facility] XR Chest 1 Vw Portable Result Date: 10/02/2022 EXAMINATION: XR CHEST 1 VIEW DATE: 10/02/2022 6:15 PM HISTORY: Altered mental status FINDINGS: No infiltrate, effusion or pneumothorax is present. Heart size, mediastinum and pulmonary vascularity arenormal. No active pulmonary disease. Electronically signed by: Alpesh Jaquez M.D. CT Head WO Contrast Result Date: 10/02/2022 EXAMINATION: CT HEAD WO CONTRAST HISTORY: The patient is a 71-year-old female who presents with altered mental status. Comparison made with the previous study dated 05/08/2022. TECHNIQUE: Axial images were obtained through the brain with thin sections and viewed both at soft tissue and bone window settings. Following this, coronal and sagittal reconstructions were performed. FINDINGS: Axial images through the brain reveals the 4th, 3rd and lateral ventricles to be normal in size and position. Cerebral sulci are not prominent. No intracerebral hemorrhage or extra-axial fluid collection is noted. Images obtained in the coronal and sagittal planes adds no further information. Axial images obtained at bone window settings reveal the cranial vault to be intact. Mastoid air cells and paranasal sinuses are normally aerated. Normal study. No intracranial bleed or mass. Electronically signed by: Arabella Ma M.D. Recent Labs: Recent Labs Lab Units 10/06/22 0814 10/02/22 1556 WBC K/cumm 8.1 11.2* HEMOGLOBIN g/dL 8.6* 9.2* HEMATOCRIT % 28.1* 29.1* PLATELETS K/cumm 309 343 Recent Labs Lab Units 10/06/22 0814 10/02/22 1556 WBC K/cumm 8.1 11.2* HEMOGLOBIN g/dL 8.6* 9.2* HEMATOCRIT % 28.1* 29.1* PLATELETS K/cumm 309 343 NEUTROS PCT % 57.3 62.2 LYMPHS PCT % 31.5 28.7 MONOS PCT % 7.3 6.6 EOS PCT % 3.2 1.9 Recent Labs Lab Units 10/06/22 1205 10/06/22 0814 10/03/22 0150 10/03/22 0128 10/02/22 1830 10/02/22 1556 SODIUM mmol/L -- 144 -- 146* -- 144 POTASSIUM PLASMA mmol/L -- 4.4 -- 3.9 -- 4.2 CHLORIDE mmol/L -- 110 -- 111* -- 104 CO2 mmol/L -- 25 -- 25 -- 26 BUN SERUM mg/dL -- 31* -- 35* -- 38* CREATININE mg/dL -- 1.70* -- 1.80* -- 1.96* [id number] mL/min/1.73 m2 -- 32 -- 30 -- 27 GLUCOSE mg/dL -- 138 -- 199 -- 227* POC GLUCOSE MONITOR mg/dL 207* -- < > -- < > -- CALCIUM mg/dL -- 9.3 -- 8.6 -- 9.4 ALBUMIN g/dL -- -- -- -- -- 3.5 PHOSPHORUS PLASMA mg/dL -- -- -- 3.3 -- -- < > = values in this interval not displayed. Recent Labs Lab Units 10/06/22 1205 10/06/22 0814 10/06/22 0743 10/03/22 0150 10/03/22 0128 10/02/22 1830 10/02/22 1556 SODIUM mmol/L -- 144 -- -- 146* -- 144 POTASSIUM PLASMA mmol/L -- 4.4 -- -- 3.9 -- 4.2 CHLORIDE mmol/L -- 110 -- -- 111* -- 104 CO2 mmol/L -- 25 -- -- 25 -- 26 ANIONGAP mmol/L -- 9 -- -- 10 -- 14 GLUCOSE mg/dL -- 138 -- -- 199 -- 227* POC GLUCOSE MONITOR mg/dL 207* -- 132 < > -- < > -- BUN SERUM mg/dL -- 31* -- -- 35* -- 38* CREATININE mg/dL -- 1.70* -- -- 1.80* -- 1.96* CALCIUM mg/dL -- 9.3 -- -- 8.6 -- 9.4 ALBUMIN g/dL -- -- -- -- -- -- 3.5 ALK PHOS Units/L -- -- -- -- -- -- 146* ALT Units/L -- -- -- -- -- -- 12 AST Units/L -- -- -- -- -- -- 18 BILIRUBIN TOTAL mg/dL -- -- -- -- -- -- 0.2 < > = values in this interval not displayed. Recent Labs Lab Units 10/02/22 1556 ALK PHOS Units/L 146* BILIRUBIN TOTAL mg/dL 0.2 TOTAL PROTEIN g/dL 7.5 ALT Units/L 12 AST Units/L 18 Recent Labs Lab Units 10/06/22 0814 10/03/22 0128 MAGNESIUM mg/dL 2.1 1.8 Lab Results Component Value Date GLUCOSE 207 (H) 10/06/2022 GLUCOSE 138 10/06/2022 GLUCOSE 132 10/06/2022 Implant: Implants No active implants to display in this view. General Precautions (If Blank, None Found): Isolation Status: No active isolations Nutritional Status and in-house recommendations: Dietary Orders (From admission, onward) Start Ordered 10/05/22 0854 Adult Diet Restricted; Consistent Carb 2000 chanelle Diet effective now Question Answer Comment (CH) Diet type Restricted Diabetic: Consistent Carb 2000 chanelle 10/05/22 0855 10/02/22 2100 Bedtime snack At bedtime Comments: If bedtime BG is less than 100mg/dl, give patient a 15 gram carbohydrate snack. 10/02/22 1758 Anticoagulation Indication: INR: No results found for requested labs within last 30 days. Warfarin Administrations (last 168 hours) None Oxygen Status: O2 Therapy for the past 12 hrs: O2 Therapy 10/06/22 0735 None (Room air) Wound Care Instructions Wound 09/04/22 Anterior;Right Toe (Comment which one) black/blue with yellow discharge (Active) Wound Status Evolving 10/06/22 1100 Site Assessment Black 10/06/22 1100 Yenny-wound Assessment Dry;Flaky 10/06/22 1100 Margins Defined edges 10/06/22 1100 Closure Unapproximated;Open to air 10/06/22 1100 Drainage Amount None 10/06/22 1100 Drainage Description Yellow 10/02/22 2300 Drainage Odor No odor 10/06/22 1100 Dressing Status Open to Air 10/06/22 1100 Dressing Betadine 10/06/22 1100 Interventions Cleansed 10/05/22 0804 Wound Length (cm) 1 cm 10/03/22 1200 Wound Width (cm) 1 cm 10/03/22 1200 Wound Depth (cm) 0 10/03/22 1200 Calculated Wound Size (cm^2) 1 cm^2 10/03/22 1200 Calculated Wound Size (cm^3) 0 cm^3 10/03/22 1200 Wound Image 10/03/22 1200 Other Instructions Call provider for: Temperature -Temperature [...] changes Active LDAs (If Blank, None Found): Peripheral IV 10/02/22 20 G Anterior;Right Forearm (Active) Placement Date/Time: 10/02/221741 Type: Angiocath Size (Gauge): 20 G Location Orientation: Anterior;Right Location: Forearm Site Prep: Chlorhexidine Technique: Guidewire with Ultrasound Guidance Inserted by: Jarad RN Insertion attempts: 1 Pa... Patient Emergency Contact: Primary Emergency Contact: Areli Gayle, Immunization Status at Discharge Immunization History Administered Date(s) Administered Influenza Nasal, Unspecified 04/17/2017 Influenza, Quadrivalent, High Dose, Preservative Free, Intrr 04/02/2020, 03/07/2021, 04/01/2022, 08/07/2022 Influenza, Trivalent, Adjuvanted, Intramuscular 04/06/2019 Influenza, Trivalent, Intramuscular 04/17/2017 Pfizer SARS-CoV-2 Vaccination (12+ yrs) PURPLE 09/22/2020, 10/13/2020, 06/11/2021 Pneumococcal Conjugate PCV 13 03/31/2017 Pneumococcal Polysaccharide PPV23 01/20/2019 Cristóbal Gould DO documented in this encounter Medications at Time of Discharge acetaminophen (TYLENOL) 325 mg tablet Take 2 tablets (650 mg total) by mouth every 6 (six) hours as needed for pain 10/11/19 albuterol HFA (ProAir HFA) 90 mcg/actuation inhalerIndications [...] long-term current use of insulin ([facility]) USE TO INJECT BASAGLAR EVERY NIGHT AT [...] flash glucose scanning reader (FreeStyle Madhav 2 [place]) miscIndications:Ty pe 2 diabetes mellitus with diabetic [...] syringe with needle, insulin (INSULIN SYRINGE-NEEDLE U-[address] [facility]) 3 times a day 09/12/2017 12/01/19 23 valsartan (DIOVAN) 40 mg tablet 09/15/2022 10/15/19 23 documented as of this encounter Ordered Prescriptions Prescription Sig Dispense Quantity Refills Last Filled Start Date End Date risperiDONE (RisperDAL) 2 mg tablet Take 1 tablet (2 mg total) by mouth nightly 30 tablet 2 10/06/2022 3 polyethylene glycol (MIRALAX) 17 gram packet Take 1 packet (17 g total) by mouth daily as needed for constipation 10/06/2022 3 insulin lispro (HumaLOG) 200 unit/mL (3 mL) pen for injectionIndicati ons:type 2 diabetes mellitus Inject 0.06 mL (12 Units total) under the skin 3 (three) times a day with meals For Glucose <140: 0 units(u), 140-174: 2u, 175-199: 4u, 200-249: 6u, 250-299: 8u, 300-349: 10u, 350+: 12u 5.4 mL 2 10/06/2022 3 carvediloL (COREG) 6.25 mg tablet Take 1 tablet (6.25 mg total) by mouth 2 (two) times a day with meals 60 tablet 2 10/06/2022 3 furosemide (LASIX) 40 mg tablet Take 1 tablet (40 mg total) by mouth daily as needed (Weight Gain >4lbs above dry weight.) 10/06/2022 3 dulaglutide (TRULICITY) 1.5 mg/0.5 mL pen injectorIndicatio ns:Type 2 diabetes mellitus with diabetic neuropathy, with long-term current use of insulin (HCC) Inject 0.5 mL (1.5 mg total) under the skin every 7 days 2 mL 2 10/06/2022 3 albuterol HFA (ProAir HFA) 90 mcg/actuation inhalerIndication s:Wheezing Inhale 2 puffs every 4 (four) hours as needed for wheezing or shortness of breath 8.5 g 2 10/06/2022 3 documented in this encounter Discharge Disposition Disposition Code Departure Means Destination Comment s Discharge to home or self care documented in this encounter Progress Notes * Cristóbal Gould, DO - 10/05/2022 5:44 PM CDT Hospitalist Daily progress note Barbara Chakraborty Admit Date: 10/02/2022 1:39 PM Today's Date: 10/05/2022 Hospital Day: 4 SUBJECTIVE Chief Complaint: Altered mental status Brief Hospital Course: Pt is a 71 yo female who presented to the ED on 10/02/22 with AMS and low O2 sats while at wound care clinic. At that time pt was being seen for a right large toe wound. She is not a good historian as she has dementia. She was afebrile at that time. Not hypoxic, appears dehydrated. Baseline Cr of 1.7 elevated to 1.96. BS was at 227. She seems to be septic with a lactate of 2.3 and WBC 11.2. CXR: no active pulmonary disease UA: 4+ LE, >50 WBC She was started on rocephin CT head: negative Interval History: 10/05/2022: The patient was seen and examined at bedside. She is awake, alert, oriented x1. She reports that she is doing fairly well overall, although says she does feel fatigued. She does not have any other new or worsening symptoms. She has no other concerns at this time. I updated her on her condition(s), workup(s), treatment(s), and discharge plan. She had no questions. No family at bedside. I spoke with nursing staff at bedside. We discussed the patient's care in detail, and all of their concerns were addressed to their satisfaction. apixaban, 5 mg, oral, Q12H SOL atorvastatin, 20 mg, oral, Daily benztropine, 1.5 mg, oral, Nightly carvediloL, 6.25 mg, oral, BID with meals (bkfst, dinner) [START ON 10/06/2022] cefTRIAXone, 1,000 mg, intravenous, Q24H SOL famotidine, 10 mg, oral, Nightly insulin glargine, 25 Units, subcutaneous, Nightly insulin lispro, 0-10 Units, subcutaneous, TID with meals insulin lispro, 0-7 Units, subcutaneous, Nightly pregabalin, 150 mg, oral, Nightly risperiDONE, 2 mg, oral, Nightly acetaminophen, 650 mg, 650 mg at 10/05/22 1651 calcium carbonate, 400 mg of elemental calcium dextrose, 15 g OR dextrose, 250 mL glucagon, 1 mg [DISCONTINUED] ondansetron ODT, 4 mg OR ondansetron, 4 mg polyethylene glycol, 17 g ramelteon, 8 mg OBJECTIVE Vitals: Most Recent : Vitals: 10/04/22 2004 10/04/22 2351 10/05/22 0730 10/05/22 1530 BP: (!) 176/65 153/57 170/76 (!) 175/75 BP Location: Left arm Left arm Left arm Patient Position: Lying Lying Lying Pulse: 79 68 70 72 Resp: 20 16 20 22 Temp: 37 ??C (98.6 ??F) 36.9 ??C (98.4 ??F) 36.2 ??C (97.2 ??F) 36.7 ??C (98.1 ??F) TempSrc: Oral Axillary Oral Oral SpO2: 100% 94% 96% 100% Weight: Height: 24hr Min/Max: Temp Min: 36.2 ??C (97.2 ??F) Max: 37 ??C (98.6 ??F) Pulse Min: 68 Max: 79 BP Min: 153/57 Max: 176/65 Resp Min: 16 Max: 22 SpO2 Min: 94 % Max: 100 % Intake/Output Summary (Last 24 hours) at 10/05/20221743 Last data filed at 10/05/2022 0900 Gross per 24 hour Intake 360 ml Output -- Net 360 ml LDA: Peripheral IV 10/02/22 20 G Anterior;Right Forearm (Active) Placement Date/Time: 10/02/22 174 Type: Angiocath Size (Gauge): 20 G Location Orientation: Anterior;Right Location: Forearm Site Prep: Chlorhexidine Technique: Guidewire with Ultrasound Guidance Inserted by: Jarad LAY Insertion attempts: 1 Pa... Number of days: 0 External Urinary Catheter (Active) Placement Date/Time: 09/04/22 1348 External Catheter Type: Female External Urinary Catheter Sizes: Female- One size Number of days: 29 Physical Exam: Constitutional: Awake, alert, oriented x1, demented. Non-distressed on room air. Non-toxic appearing. Well-nourished. Eyes: EOMI. Conjunctiva are normal. ENMT: Face, External ears, and Nose are normal appearing. Hearing is intact bilaterally. Oropharyngeal examination shows moist membranes. Cardiovascular: Heart Rate and Rhythm Regular. No Murmur. No Jugular Venous Distention. Distal pulses are intact in the upper extremity. No edema in the lower extremities. Respiratory: Breath sounds are appropriate in all lung cavanaugh. No wheezing. No rhonchi. No rales. Gastrointestinal: Soft. Non-tender without guarding. Non-distended. Skin: Warm, Dry. Capillary refill is brisk. Musculoskeletal: No inflamed joints. No significant joint deformities. Neurological: No gross neurological deficits appreciated. Psychiatric: Mood and affect are appropriate. Lab/Radiology/Diagnostic Review: I have personally reviewed all labs, diagnostic studies and films and unless otherwise noted I agree with the findings. Recent Results (from the past 24 hour(s)) POCT glucose Collection Time: 10/04/22 8:07 PM Result Value Ref Range Glucose, POC 254 (H) 70 - 199 mg/dL POCT glucose Collection Time: 10/05/22 1:31 AM Result Value Ref Range Glucose, POC 182 70 - 199 mg/dL POCT glucose Collection Time: 10/05/22 7:37 AM Result Value Ref Range Glucose, POC 165 70 - 199 mg/dL POCT glucose Collection Time: 10/05/22 12:26 PM Result Value Ref Range Glucose, POC 191 70 - 199 mg/dL POCT glucose Collection Time: 10/05/22 4:45 PM Result Value Ref Range Glucose, POC 210 (H) 70 - 199 mg/dL ASSESSMENT/PLAN Principal Problem: Altered mental status, unspecified altered mental status type Active Problems: Schizoaffective disorder, bipolar type ([facility]/HCC) ([facility]) Type 2 diabetes mellitus with diabetic neuropathy, with long-term current use of insulin ([facility]) ([facility]) Hypertension associated with diabetes (HCC) Iron deficiency anemia GERD (gastroesophageal reflux disease) Hyperlipidemia associated with type 2 diabetes mellitus (HCC) Dementia (HCC) 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 2 diabetes mellitus (CMS/HCC) ([facility]) Acute cystitis without hematuria Patient does not have sepsis, acute cystitis: Decreased Rocephin 1 g IV every 24 hours, finish tomorrow for 17. Recheck CBC, BMP, magnesium in the morning. Diabetes: Still having hyperglycemia. Increase sliding scale insulin. Discharge Disposition: Likely 10/06 to home. Voice recognition software ([employer]oServ Direct) was used to complete this document. Despite proofreading, efficiency engineer variances and typographical errors may occur. Cristóbal Gould DO, FM/RYLANDM Hospitalist in the [facility] 10/05/2022 5:47 PM * Larry Dennis MD - 10/04/2022 4:57 PM CDT Hospitalist Daily progress note Barbara Chakraborty Admit Date: 10/02/2022 1:39 PM Today's Date: 10/04/2022 Hospital Day: 3 SUBJECTIVE Chief Complaint: Altered mental status Brief Hospital Course: Pt is a 71 yo female who presented to the ED on 10/02/22 with AMS and low O2 sats while at wound care clinic. At that time pt was being seen for a right large toe wound. She is not a good historian as she has dementia. She was afebrile at that time. Not hypoxic, appears dehydrated. Baseline Cr of 1.7 elevated to 1.96. BS was at 227. She seems to be septic with a lactate of 2.3 and WBC 11.2. CXR: no active pulmonary disease UA: 4+ LE, >50 WBC She was started on rocephin CT head: negative Interval History: 10/04/2022: Patient sitting up on edge of bed has some tremors in the hands. She says is new over the last couple of weeks. apixaban, 5 mg, oral, Q12H SOL atorvastatin, 20 mg, oral, Daily benztropine, 1.5 mg, oral, Nightly carvediloL, 6.25 mg, oral, BID with meals (bkfst, dinner) cefTRIAXone, 2,000 mg, intravenous, Q24H SOL famotidine, 10 mg, oral, Nightly insulin glargine, 25 Units, subcutaneous, Nightly insulin lispro, 0-4 Units, subcutaneous, Nightly insulin lispro, 0-5 Units, subcutaneous, TID with meals polyethylene glycol, 17 g, oral, Daily pregabalin, 150 mg, oral, Nightly risperiDONE, 2 mg, oral, Nightly acetaminophen, 650 mg, 650 mg at 10/04/22 1602 albuterol HFA, 2 puff dextrose, 15 g OR dextrose, 250 mL glucagon, 1 mg ondansetron ODT, 4 mg OR ondansetron, 4 mg OBJECTIVE Vitals: Most Recent : Vitals: 10/03/22 1443 10/04/22 0106 10/04/22 0739 10/04/22 1602 BP: 146/58 149/51 166/71 (!) 189/100 BP Location: Right arm Left arm Right arm Patient Position: Lying Lying Lying Pulse: 77 72 73 73 Resp: 20 18 20 Temp: 36.9 ??C (98.5 ??F) 37.1 ??C (98.8 ??F) 37.1 ??C (98.7 ??F) TempSrc: Oral Axillary Oral SpO2: 98% 99% 96% Weight: Height: 24hr Min/Max: Temp Min: 37.1 ??C (98.7 ??F) Max: 37.1 ??C (98.8 ??F) Pulse Min: 72 Max: 73 BP Min: 149/51 Max: 189/100 Resp Min: 18 Max: 20 SpO2 Min: 96 % Max: 99 % Intake/Output Summary (Last 24 hours) at 10/04/2022 1657 Last data filed at 10/04/2022 1330 Gross per 24 hour Intake 540 ml Output -- Net 540 ml LDA: Peripheral IV 10/02/22 20 G Anterior;Right Forearm (Active) Placement Date/Time: 10/02/22 1742 Type: Angiocath Size (Gauge): 20 G Location Orientation: Anterior;Right Location: Forearm Site Prep: Chlorhexidine Technique: Guidewire with Ultrasound Guidance Inserted by: Jarad LAY Insertion attempts: 1 Pa... Number of days: 0 External Urinary Catheter (Active) Placement Date/Time: 09/04/22 1348 External Catheter Type: Female External Urinary Catheter Sizes: Female- One size Number of days: 29 Physical Exam: General appearance: appears stated age, cooperative, and no distress Head: Normocephalic, without obvious abnormality, atraumatic Eyes: conjunctivae/corneas clear. PERRL Lungs: clear to auscultation bilaterally Heart: S1, S2 normal Abdomen: soft, non-tender; bowel sounds normal; no masses, no organomegaly Extremities: Tremors hands Lab/Radiology/Diagnostic Review: I have personally reviewed all labs, diagnostic studies and films and unless otherwise noted I agree with the findings. Recent Results (from the past 24 hour(s)) POCT glucose Collection Time: 10/03/22 5:02 PM Result Value Ref Range Glucose, POC 318 (H) 70 - 199 mg/dL POCT glucose Collection Time: 10/03/22 8:11 PM Result Value Ref Range Glucose, POC 245 (H) 70 - 199 mg/dL POCT glucose Collection Time: 10/04/22 12:36 AM Result Value Ref Range Glucose, POC 224 (H) 70 - 199 mg/dL POCT glucose Collection Time: 10/04/22 5:06 AM Result Value Ref Range Glucose, POC 154 70 - 199 mg/dL POCT glucose Collection Time: 10/04/22 7:22 AM Result Value Ref Range Glucose, POC 176 70 - 199 mg/dL POCT glucose Collection Time: 10/04/22 11:28 AM Result Value Ref Range Glucose, POC 251 (H) 70 - 199 mg/dL ECG 12 lead Result Date: 10/03/2022 Narrative: Vent Rate: 83 bpm RR Interval: 716 msec VT Interval: 144 msec QRS Duration: 81 msec QT Interval: 375 msec QTC Interval: 415 msec P-R-T [place]: 51 - -17 - 40 degrees SINUS RHYTHM POSSIBLE ANTERIOR MYOCARDIAL INFARCTION , OF INDETERMINATE AGE Electronically Signed By: Ilan Ghotra MD, [facility] XR Foot Right 3+ views Result Date: 09/04/2022 Narrative: EXAMINATION: XR FOOT RIGHT 3 OR MORE [...] joint. Arterial calcifications. Mild soft tissue swelling Impression: Amputation 4th digit. No evidence to suggest osteomyelitis Electronically signed by: Seth Sanders M.D. CT Head WO Contrast Result Date: 10/02/2022 Narrative: EXAMINATION: CT HEAD WO CONTRAST HISTORY: The patient is a 71-year-old female who presents with altered mental status. Comparison made with the previous study dated 05/08/2022. TECHNIQUE: Axial images were obtained through the brain with thin sections and viewed both at soft tissue and bone window settings. Following this, coronal and sagittal reconstructions were performed. FINDINGS: Axial images through the brain reveals the 4th, 3rd and lateral ventricles to be normal in size and position. Cerebral sulci are not prominent. No intracerebral hemorrhage or extra-axial fluid collection is noted. Images obtained in the coronal and sagittal planes adds no further information. Axial images obtained at bone window settings reveal the cranial vault to be intact. Mastoid air cells andparanasal sinuses are normally aerated. Impression: Normal study. No intracranial bleed or mass. Electronically signed by: Arabella Ma M.D. XR Chest 1 Vw Portable Result Date: 10/02/2022 Narrative: EXAMINATION: XR CHEST 1 VIEW DATE: 10/02/2022 6:15 PM HISTORY: Altered mental status FINDINGS: No infiltrate, effusion or pneumothorax is present. Heart size, mediastinum and pulmonary vascularity are normal. Impression: No active pulmonary disease. Electronically signed by: Alpesh Jaquez M.D. Screening Mammogram Bilateral W Stalin Result Date: 09/25/2022 Narrative: Screening Mammogram Bilateral W Stalin: 09/25/22 The study was acquired using full field digital technology and interpreted from soft copy. 2D digital mammographic views, as well as 3D digitaltomosynthesis were performed in the CC and MLO projections. CLINICAL: Encounter for screening mammogram for malignant neoplasm of breast No relevant medical history has been documented for this patient. No known family history of breast cancer. COMPARISONS: 01/08/2021 SCREENING MAMMOGRAM BILATERAL W STALIN 11/08/2015 Diagnostic Mammogram Bilateral W Stalin BREAST TISSUE: The breasts have scattered areas of fibroglandular density. FINDINGS: Suboptimal examination secondary to difficulty with patient positioning related to the patient's physical condition (stiffness, difficulty standing). No suspicious masses, suspicious calcifications, or other suspicious findings are seen within either breast. There has been no suspicious change. Impression: BI-RADS?? ATLAS category (overall): 1 - Negative There is no mammographic evidence of malignancy. A 1 year screening mammogram is recommended. The patient has been or will be contacted. We recommend annual screening mammography for women at average risk of breast cancer beginning at age40, based on guidelines of the [employer] [employer] (ACR Practice Parameter for the Performance of Screening and Diagnostic Mammography) and [place]. For women with and elevated risk of breast cancer, please refer to the ACR Practice Parameter for specific screening recommendations. The patient will be entered into a reminder system with a target due date of 1 year for her next screening exam. ASSESSMENT/PLAN Principal Problem: Altered mental status, unspecified altered mental status type Active Problems: Schizoaffective disorder, bipolar type (CMS/HCC) (HCC) Type 2 diabetes mellitus with diabetic neuropathy, with long-term current use of insulin (CMS/HCC) (HCC) Hypertension associated with diabetes (HCC) Iron deficiency anemia GERD (gastroesophageal reflux disease) Hyperlipidemia associated with type 2 diabetes mellitus (HCC) Dementia (HCC) 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 2 diabetes mellitus (CMS/HCC) (HCC) Acute cystitis without hematuria Sepsis possible infection, continue antibiotics Rocephin follow repeat blood cultures done Urine culture no growth Continue Lipitor Continue Eliquis continue Pepcid Continue Lantus insulin sliding scale insulin monitor fingerstick blood sugars closely Continue Lyrica Continue Cogentin DVT prophylaxis patient on Eliquis Full Code Disposition: Pending workup MDM: Juan Jose Dennis MD 10/04/22 * Darren Morgan DO - 10/03/2022 4:54 PM CDT Daily Progress Barbara Chakraborty Admit Date: 10/02/2022 1:39 PM Today's Date: 10/03/2022 Hospital Day: 2 SUBJECTIVE Chief Complaint: Altered mental status Brief Hospital Course: Pt is a 71 yo female who presented to the ED on 10/02/22 with AMS and low O2 sats while at wound care clinic. At that time pt was being seen for a right large toe wound. She is not a good historian as she has dementia. She was afebrile at that time. Not hypoxic, appears dehydrated. Baseline Cr of 1.7 elevated to 1.96. BS was at 227. She seems to be septic with a lactate of 2.3 and WBC 11.2. CXR: no active pulmonary disease UA: 4+ LE, >50 WBC She was started on rocephin CT head: negative Interval History: Pt seen and examined. Patient states that she is doing pretty good. Better than when she 1st presented. No drainage noted on the foot wound. ROS: Constitutional: Denies fevers, chills, sweats, fatique, weakness CV: Denies CP, edema, palpitations Resp: Denies SOB, cough, wheezes, MYLES GI: Denies abd pain, NVDC, positive BM apixaban, 5 mg, oral, Q12H SOL atorvastatin, 20 mg, oral, Daily benztropine, 1.5 mg, oral, Nightly carvediloL, 6.25 mg, oral, BID with meals (bkfst, dinner) [START ON 10/04/2022] cefTRIAXone, 2,000 mg, intravenous, Q24H SOL famotidine, 10 mg, oral, Nightly insulin glargine, 25 Units, subcutaneous, Nightly insulin lispro, 0-4 Units, subcutaneous, Nightly insulin lispro, 0-5 Units, subcutaneous, TID with meals polyethylene glycol, 17 g, oral, Daily pregabalin, 150 mg, oral, Nightly risperiDONE, 2 mg, oral, Nightly acetaminophen, 650 mg albuterol HFA, 2 puff dextrose, 15 g OR dextrose, 250 mL glucagon, 1 mg ondansetron ODT, 4 mg OR ondansetron, 4 mg OBJECTIVE Vitals: Most Recent : Vitals: 10/02/22 2125 10/03/22 0737 10/03/22 0802 10/03/22 1443 BP: 162/68 153/60 156/78 146/58 BP Location: Right arm Left arm Right arm Patient Position: Lying Lying Lying Pulse: 81 77 73 77 Resp: 18 18 20 Temp: 37.1 ??C (98.7 ??F) 36.5 ??C (97.7 ??F) 36.9 ??C (98.5 ??F) TempSrc: Oral Oral Oral SpO2: 100% 96% 98% Weight: Height: 24hr Min/Max: Temp Min: 36.5 ??C (97.7 ??F) Max: 37.1 ??C (98.7 ??F) Pulse Min: 73 Max: 81 BP Min: 146/58 Max: 164/93 Resp Min: 16 Max: 20 SpO2 Min: 96 % Max: 100 % Intake/Output Summary (Last 24 hours) at 10/03/2022 1654 Last data filed at 10/03/2022 0808 Gross per 24 hour Intake 2380 ml Output -- Net 2380 ml LDA: Peripheral IV 10/02/22 20 G Anterior;Right Forearm (Active) Placement Date/Time: 10/02/221741 Type: Angiocath Size (Gauge): 20 G Location Orientation: Anterior;Right Location: Forearm Site Prep: Chlorhexidine Technique: Guidewire with Ultrasound Guidance Inserted by: Jarad RN Insertion attempts: 1 Pa... Number of days: 0 External Urinary Catheter (Active) Placement Date/Time: 09/04/22 1348 External Catheter Type: Female External Urinary Catheter Sizes: Female- One size Number of days: 29 Physical Exam: Constitutional: Awake, NAD HEENT: Atraumatic, normocephalic, EOMI, ext ear canals atraumatic Cardio: RRR, S1/S2, no murmurs Lungs: CTABL, no wheezes, rhonchi or crackles Gi: abd soft, Nt, Nd, +BS Ext: no edema, no cyanosis, pulses intact; right great toe wound appears dry and healing Neuro: A&Ox3, no focal deficits Skin: warm and dry, no rashes, lesions or growths Psych: normal affect and mood, behavior normal Lab/Radiology/Diagnostic Review: I have personally reviewed all labs, diagnostic studies and films and unless otherwise noted I agree with the findings. Recent Results (from the past 24 hour(s)) Sepsis Lactate w/ Reflex Collection Time: 10/02/22 5:26 PM Result Value Ref Range Sepsis Lactate 2.3 (H) 0.7 - 2.0 mmol/L Blood culture Blood Antecubital, right Collection Time: 10/02/22 5:26 PM Specimen: Antecubital, right; Blood Result Value Ref Range Direct Specimen Exam Molecular Analysis: Streptococcus species detected by the [facility] Blood Culture Nucleic Acid Test. This test does not exclude the possibility of a mixed bacterial infection. Notification of: Streptococcus species called to and read back by: Zoran Baca RN [phone] on 10/03/2022 14:12:18 by: Marta Simeon [place] Direct Specimen Exam Stain: Gram Positive Cocci in pairs and chains Time to culture positivity (anaerobic media): 11.1 hours Time to culture positivity (aerobic media): 11 hours Notification of: Gram Positive Cocci in pairs and chains called to and read back by: Nelia Crouch [phone] on 10/03/2022 08:51:39 by: Maddie Barrera MLS Report Preliminary Report: Culture results pending. (.) Blood culture Blood Antecubital, right Collection Time: 10/02/22 5:26 PM Specimen: Antecubital, right; Blood Result Value Ref Range Report Preliminary Report: No growth to date. POCT glucose Collection Time: 10/02/22 6:30 PM Result Value Ref Range Glucose, POC 239 (H) 70 - 199 mg/dL Influenza A/B, RSV, and COVID-19 PCR Nasopharyngeal Collection Time: 10/02/22 6:48 PM Specimen: Nasopharyngeal Result Value Ref Range COVID-19 RNA Negative Negative Influenza A RNA Negative Negative Influenza B RNA Negative Negative RSV RNA Negative Negative POCT glucose Collection Time: 10/02/22 9:40 PM Result Value Ref Range Glucose, POC 351 (H) 70 - 199 mg/dL Sepsis Lactate w/ Reflex Collection Time: 10/02/22 10:09 PM Result Value Ref Range Sepsis Lactate 3.4 (H) 0.7 - 2.0 mmol/L Basic metabolic panel Collection Time: 10/03/22 1:28 AM Result Value Ref Range Sodium 146 (H) 135 - 145 mmol/L Potassium, pl 3.9 3.3 - 4.9 mmol/L Chloride 111 (H) 97 - 110 mmol/L CO2 25 22 - 32 mmol/L Anion gap 10 2 - 15 mmol/L BUN 35 (H) 8 - 25 mg/dL Creatinine 1.80 (H) 0.60 - 1.10 mg/dL Glucose 199 70 - 199 mg/dL Calcium 8.6 8.5 - 10.3 mg/dL Magnesium Collection Time: 10/03/22 1:28 AM Result Value Ref Range Magnesium 1.8 1.4 - 2.5 mg/dL Phosphorus Collection Time: 10/03/22 1:28 AM Result Value Ref Range Phosphorus, pl 3.3 2.3 - 4.5 mg/dL Iron profile w/ IBC Collection Time: 10/03/22 1:28 AM Result Value Ref Range Iron 43 35 - 145 mcg/dl TIBC 162 (L) 250 - 400 mcg/dL Transferrin saturation 27 20 - 50 % Vitamin B12 Collection Time: 10/03/22 1:28 AM Result Value Ref Range Vitamin B12 588 230 - 1,250 pg/mL Folate Collection Time: 10/03/22 1:28 AM Result Value Ref Range Folic acid 17.9 >=5.0 ng/mL Sepsis Lactate w/ Reflex Collection Time: 10/03/22 1:28 AM Result Value Ref Range Sepsis Lactate 1.7 0.7 - 2.0 mmol/L eGFR Collection Time: 10/03/22 1:28 AM Result Value Ref Range eGFR 30 mL/min/1.73 m2 POCT glucose Collection Time: 10/03/22 1:50 AM Result Value Ref Range Glucose, POC 241 (H) 70 - 199 mg/dL POCT glucose Collection Time: 10/03/22 7:48 AM Result Value Ref Range Glucose, POC 171 70 - 199 mg/dL POCT glucose Collection Time: 10/03/22 11:53 AM Result Value Ref Range Glucose, POC 263 (H) 70 - 199 mg/dL ECG 12 lead Result Date: 10/03/2022 Narrative: Vent Rate: 83 bpm RR Interval: 716 msec VT Interval: 144 msec QRS Duration: 81 msec QT Interval: 375 msec QTC Interval: 415 msec P-R-T [place]: 51 - -17 - 40 degrees SINUS RHYTHM POSSIBLE ANTERIOR MYOCARDIAL INFARCTION , OF INDETERMINATE AGE Electronically Signed By: lIan Ghotra MD, [facility] XR Foot Right 3+ views Result Date: 09/04/2022 Narrative: EXAMINATION: XR FOOT RIGHT 3 OR MORE [...] joint. Arterial calcifications. Mild soft tissue swelling Impression: Amputation 4th digit. No evidence to suggest osteomyelitis Electronically signed by: Seth Sanders M.D. CT Head WO Contrast Result Date: 10/02/2022 Narrative: EXAMINATION: CT HEAD WO CONTRAST HISTORY: The patient is a 71-year-old female who presents with altered mental status. Comparison made with the previous study dated 05/08/2022. TECHNIQUE: Axial images were obtained through the brain with thin sections and viewed both at soft tissue and bone window settings. Following this, coronal and sagittal reconstructions were performed. FINDINGS: Axial images through the brain reveals the 4th, 3rd and lateral ventricles to be normal in size and position. Cerebral sulci are not prominent. No intracerebral hemorrhage or extra-axial fluid collection is noted. Images obtained in the coronal and sagittal planes adds no further information. Axial images obtained at bone window settings reveal the cranial vault to be intact. Mastoid air cells andparanasal sinuses are normally aerated. Impression: Normal study. No intracranial bleed or mass. Electronically signed by: Arabella Ma M.D. XR Chest 1 Vw Portable Result Date: 10/02/2022 Narrative: EXAMINATION: XR CHEST 1 VIEW DATE: 10/02/2022 6:15 PM HISTORY: Altered mental status FINDINGS: No infiltrate, effusion or pneumothorax is present. Heart size, mediastinum and pulmonary vascularity are normal. Impression: No active pulmonary disease. Electronically signed by: Alpesh Jaquez M.D. Screening Mammogram Bilateral W Stalin Result Date: 09/25/2022 Narrative: Screening Mammogram Bilateral W Stalin: 09/25/22 The study was acquired using full field digital technology and interpreted from soft copy. 2D digital mammographic views, as well as 3D digitaltomosynthesis were performed in the CC and MLO projections. CLINICAL: Encounter for screening mammogram for malignant neoplasm of breast No relevant medical history has been documented for this patient. No known family history of breast cancer. COMPARISONS: 01/08/2021 SCREENING MAMMOGRAM BILATERAL W STALIN 11/08/2015 Diagnostic Mammogram Bilateral W Stalin BREAST TISSUE: The breasts have scattered areas of fibroglandular density. FINDINGS: Suboptimal examination secondary to difficulty with patientpositioning related to the patient's physical condition (stiffness, difficulty standing). No suspicious masses, suspicious calcifications, or other suspicious findings are seen within either breast. There has been no suspicious change. Impression: BI-RADS?? ATLAS category (overall): 1 - Negative There is no mammographic evidence of malignancy. A 1 year screening mammogram is recommended. The patient has been or will be contacted. We recommend annual screening mammography for women at average risk of breast cancer beginning at age40, based on guidelines of the [employer] [employer] (ACR Practice Parameter for the Performance of Screening and Diagnostic Mammography) and [place] [employer]. For women with and elevated risk of breast cancer, please refer to the ACR Practice Parameter for specific screening recommendations. The patient will be entered into a reminder system with a target due date of 1 year for her next screening exam. ASSESSMENT/PLAN Principal Problem: Altered mental status, unspecified altered mental status type Active Problems: Schizoaffective disorder, bipolar type (CMS/HCC) (HCC) Type 2 diabetes mellitus with diabetic neuropathy, with long-term current use of insulin (CMS/HCC) (HCC) Hypertension associated with diabetes (HCC) Iron deficiency anemia GERD (gastroesophageal reflux disease) Hyperlipidemia associated with type 2 diabetes mellitus (HCC) Dementia (HCC) 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 2 diabetes mellitus (CMS/HCC) (HCC) Acute cystitis without hematuria Continue empiric Rocephin for right now Blood culture showing Gram-positive cocci in pairs and chains likely contamination will continue tomonitor and get repeat blood cultures. Will DC IV fluids Continue Eliquis Convince continue home medications Monitor mental status Urine cultures pending DVT prophylaxis Full Code Disposition: Pending work MDM: Juan Jose Morgan DO 10/03/22 documented in this encounter H&P Notes * BrotherMauricio MD - 10/02/2022 7:15 PM CDT Primary Care Physician: Duane Corcoran MD [phone] SUBJECTIVE HPI: Barbara Chakraborty is a 71 y.o. female admitted to [facility] on 10/02/2022. Pt [facility] and interview with patient. Pt lives with daughter. Pt with dementia, schizophrenia, DM type 2, HTN, HLD, and CKD. She has a wound on right great toe. At wound clinic today, she had low O2 sats so was sent to the ER. She has also had some increased confusion. She knows her name but is confused about everything else. She keeps telling me she needs to get stuff from her apartment because she is moving. No history of fever or chills. No other information available as she is not a good historian. In the ER, she is not hypoxic but appears to be dehydrated with dry mucus membranes. She has been started on IVF's. She has a baseline Cr of about 1.7 and her Cr is now elevated to 1.96. Her BS is also elevated to 227. She appears to be septic with a lactate of 2.3 and WBC count of 11.2. Her CXR shows no active pulmonary disease. UA does suggest infection with4+ LE and >50 WBC. Pt started on IV Rocephin. She will now be admitted for further treatment and evaluation. Past Medical History: Diagnosis Date Arthritis Dementia [...] activity: Defer Alcohol Use: Not At Risk Frequency of Alcohol Consumption: Never Average Number of Drinks: Patient does not drink Frequency of Binge Drinking: Never Family History Problem Relation Age of Onset Stomach cancer Father Medications Prior to Admission Medication Sig Dispense Refill Last Dose acetaminophen (TYLENOL) 325 mg tablet Take 650 mg by mouth every 6 (six) hours as needed for pain albuterol HFA (ProAir HFA) 90 mcg/actuation inhaler Inhale 2 puffs every 4 (four) hours as needed for wheezing or shortness of breath 8.5 g 0 apixaban (ELIQUIS) 5 mg tablet Take 1 [...] skin every 7 days 6 mL 1 famotidine (PEPCID) 10 mg tablet Take 1 tablet (10 mg total) by mouth nightly 90 tablet 0 ferrous sulfate 325 mg (65 mg of elemental iron) tablet Take 1 tablet (325 mg total) by mouth dailywith breakfast 90 tablet 1 flash glucose scanning reader (FreeStyle Madhav 2 [place]) [facility] [place] Use to continually monitor glucose 1 each 0 flash glucose sensor (FreeStyle Madhav 2 Sensor) kit Use to continually monitor glucose, change every 14 days 6 kit 3 furosemide (LASIX) 40 mg tablet Take 1 tablet (40 mg total) by mouth 2 (two) times a day 60 tablet 11 insulin glargine 100 unit/mL (3 mL) pen for injection Inject 25 Units under the skin nightly 45 mL 4 insulin lispro (HumaLOG, ADMELOG) 100 unit/mL pen for injection Inject 12 Units under the skin 3 (three) times a day with meals 33 mL 1 lancets [facility] [place] Check blood sugar up to 3 times a day 100 each 3 miscellaneous medical supply (Blood Pressure Cuff) [facility] [place] Use to check blood pressure daily 1 each 1 OneTouch Verio test strips strip TEST 3 TO 4 TIMES DAILY 400 each 1 polyethylene glycol (MIRALAX) 17 gram packet Take 1 packet (17 g total) by mouth daily pregabalin (LYRICA) 150 mg capsule Take 1 capsule (150 mg total) by mouth nightly 30 capsule 2 risperiDONE (RisperDAL) 2 mg tablet Take 1 tablet (2 mg total) by mouth nightly 30 tablet 11 syringe with needle, insulin (INSULIN SYRINGE-NEEDLE U-[address] [facility] [place]) 3 times a day No Known Allergies Review of Systems: Unable to obtain due to confusion and dementia OBJECTIVE Vitals: Presenting: Arrival Vitals Temp 10/02/22 1330 36.8 ??C (98.3 ??F) Pulse 10/02/22 1330 85 Resp 10/02/22 1330 14 BP 10/02/22 1332 145/61 SpO2 10/02/22 1330 100 % Temp src 10/02/22 1330 Tympanic Heart Rate Source -- Patient Position 10/02/22 1330 Sitting BP Location 10/02/22 1330 Right arm FiO2 (%) -- Most Recent : Vitals: 10/02/22 1800 10/02/22 1805 10/02/22 2037 10/02/22 2125 BP: 162/68 BP Location: Right arm Patient Position: Lying Pulse: 77 81 Resp: 18 Temp: 37.1 ??C (98.7 ??F) TempSrc: Oral SpO2: 100% 100% Weight: 70.3 kg (155 lb) 71.5 kg (157 lb 11.2 oz) Height: 157.5 cm (5' 2 ) Physical Exam: Constitutional: Well-developed well-nourished female alert in no apparent distress HEENT: Normocephalic atraumatic. Eyes, ears, nose and throat all appear normal to inspection. Mucous membranes are pink and dry. Neck: Supple, trachea midline, no lymphadenopathy. Heart: Regular rate and rhythm with normal S1 and S2. No peripheral edema. Pulses are 2+ bilaterally Lungs: Clear to auscultation bilaterally. No wheezes or crackles. No accessory muscle use noted. Nosigns of respiratory distress. Abdomen: Soft nontender nondistended with normoactive bowel sounds Extremities: Extremities appear normal without clubbing cyanosis or edema. Moves all extremities well. Neuro: Alert oriented x 1. Normal speech. Normal nonfocal neuro exam. Lab/Radiology/Diagnostic Review: Recent Results (from the past 24 hour(s)) POCT glucose Collection Time: 10/02/22 1:37 PM Result Value Ref Range Glucose, POC 223 (H) 70 - 199 mg/dL CBC with auto differential Collection Time: 10/02/22 3:56 PM Result Value Ref Range WBC 11.2 (H) 3.8 - 9.9 K/cumm Hgb 9.2 (L) 11.9 - 15.5 g/dL Hct 29.1 (L) 35.6 - 45.5 % Plt 343 150 - 400 K/cumm MPV 11.3 9.1 - 12.3 fL RBC 3.08 (L) 3.90 - 5.20 M/cumm MCV 94.5 81.3 - 96.4 fL MCH 29.9 27.1 - 33.3 pg MCHC 31.6 (L) 32.3 - 35.7 g/dL RDW CV 15.6 (H) 11.1 - 14.9 % RDW SD 53.5 (H) 35.7 - 48.1 fL NRBC abs 0.00 0.00 - 0.01 K/cumm Comprehensive metabolic panel Collection Time: 10/02/22 3:56 PM Result Value Ref Range Sodium 144 135 - 145 mmol/L Potassium, pl 4.2 3.3 - 4.9 mmol/L Chloride 104 97 - 110 mmol/L CO2 26 22 - 32 mmol/L Anion gap 14 2 - 15 mmol/L BUN 38 (H) 8 - 25 mg/dL Creatinine 1.96 (H) 0.60 - 1.10 mg/dL Glucose 227 (H) 70 - 199 mg/dL Calcium 9.4 8.5 - 10.3 mg/dL Bilirubin, total 0.2 0.1 - 1.2 mg/dL Protein, pl 7.5 6.5 - 8.5 g/dL Albumin 3.5 3.5 - 5.0 g/dL Alk phos 146 (H) 40 - 130 Units/L ALT 12 7 - 45 Units/L AST 18 10 - 45 Units/L Urinalysis reflex to microscopic and culture Urine Collection Time: 10/02/22 3:56 PM Specimen: Urine Result Value Ref Range Color, ur Yellow Yellow Clarity, ur Turbid (A) Clear Specific gravity, ur 1.010 1.003 - 1.030 pH, urine 6.0 Protein, ur ql 2+ (A) Negative Glucose, ur ql 2+ (A) Negative Ketones, ur Negative Negative Bilirubin, ur Negative Negative Blood, ur 1+ (A) Negative Urobilinogen, ur <2.0 <2.0 mg/dL Nitrite, ur Negative Negative Leukocyte esterase, ur 4+ (A) Negative UA reflex comment Reflex to microscopic UA will be performed. Differential, auto Collection Time: 10/02/22 3:56 PM Result Value Ref Range Neutrophil abs 7.0 (H) 1.7 - 6.5 K/cumm Imm gran abs 0.0 0.0 - 0.1 K/cumm Lymphocyte abs 3.2 0.8 - 3.3 K/cumm Monocyte abs 0.7 0.2 - 0.8 K/cumm Eosinophil abs 0.2 0.0 - 0.5 K/cumm Basophil abs 0.0 0.0 - 0.1 K/cumm Neutrophil pct 62.2 % Imm gran pct 0.3 % Lymphocyte pct 28.7 % Monocyte pct 6.6 % Eosinophil pct 1.9 % Basophil pct 0.3 % Urinalysis, microscopic only Collection Time: 10/02/22 3:56 PM Result Value Ref Range WBC, ur >50 (A) 0 - 5 /HPF RBC, ur 21-50 (A) 0 - 2 /HPF Hyaline casts, ur 6-10 0 - 10 /LPF Culture Reflex Comment Reflex to urine culture will be performed. eGFR Collection Time: 10/02/22 3:56 PM Result Value Ref Range eGFR 27 mL/min/1.73 m2 Sepsis Lactate w/ Reflex Collection Time: 10/02/22 5:26 PM Result Value Ref Range Sepsis Lactate 2.3 (H) 0.7 - 2.0 mmol/L POCT glucose Collection Time: 10/02/22 6:30 PM Result Value Ref Range Glucose, POC 239 (H) 70 - 199 mg/dL Influenza A/B, RSV, and COVID-19 PCR Nasopharyngeal Collection Time: 10/02/22 6:48 PM Specimen: Nasopharyngeal Result Value Ref Range COVID-19 RNA Negative Negative Influenza A RNA Negative Negative Influenza B RNA Negative Negative RSV RNA Negative Negative Assessment & Plan: All diagnoses are present on admission unless otherwise indicated. Principal Problem: Altered mental status, unspecified altered mental status type Active Problems: Schizoaffective disorder, bipolar type (CMS/HCC) (HCC) Type 2 diabetes mellitus with diabetic neuropathy, with long-term current use of insulin (CMS/HCC) (HCC) Hypertension associated with diabetes (HCC) Iron deficiency anemia GERD (gastroesophageal reflux disease) Hyperlipidemia associated with type 2 diabetes mellitus (HCC) Dementia (HCC) 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 2 diabetes mellitus (CMS/HCC) (HCC) Acute metabolic encephalopathy. Pt with baseline dementia so unclear about baseline mental status. Likely more confused than usual due to dehydration and UTI. Continue IVF's and IV antibiotics. Monitor mental status. Acute sepsis secondary to UTI. Will place on IVF's after bolus given and continue IV Rocephin. Follow culture results and adjust antibiotics accordingly. Follow lactate. STEFANO on CKD stage 4. Hydrate with IVF's. Follow Cr levels. Follow by Dr. Ryan so will consult him. Will hold lasix. IDDM type 2. Complicated by neuropathy and nephropathy. Uncontrolled with recent A1C of 8.6. Initial BS is high at 227. Will need to continue to monitor BS closely Q AC and HS. Provide SSI as needed.Continue Lantus at 25 units and premeal Humalog of 12 units with meals. Continue Lyrica for neuropathy. Iron deficiency anemia. HgB is now 9.2. Most recently was 8.8. MCV is normal at 94.5 suggesting against iron def. Will check iron panel, B12 and folate. Follow stool guaiacs as well. Follow CBC. HTN. Current BP of 145/61. Will continue to monitor BP closely. Continue Coreg. GERD. Continue Pepcid. HLD. Continue atorvastatin. H/O DVT. On Eliquis. Schizoaffective disorder, bipolar type. Continue home meds including Cogentin and risperidone. DVT Prophylaxis: Eliquis Code Status: Full Code Estimated Length of Stay: 2-3 Days Voice recognition software (ResoServ Direct) was used to complete this document. Despite proofreading, efficiency engineer variances and typographical errors may occur. My total encounter time on 10/02/2022 was 78 minutes which was spent in the activities documented inthe note. This includes time spent prior to the visit and after the visit in direct care of the patient. This time does not include time spent in any separately reportable services. Mauricio Figueroa MD 10/02/2022 9:40 PM documented in this encounter Consult Notes * Yasmeen Hernadez RN - 10/03/2022 11:56 AM CDT Images from the original note were not included. 71 y/o female, admitted on 10/02/22 for AMS. PMH of dementia, schizophrenia, DM type 2, HTN, HLD, and CKD. Wound care dept consulted for great toe wound. Impression: necrotic/ischemic right great toe. Hard, stable eschar. No drainage or odor. Periwound skin dry, flaky. Plan: cleansed with microcyn, betadine painted. Recommend podiatry and/or vascular consult. Goal: antimicrobial protection, keep clean and dry. 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 Please contact wound care deptwith any concerns. Wound care dept phone: [phone]. documented in this encounter Nursing Notes * Audie Fraser RN - 10/02/2022 7:17 PM CDT TCN Start Time: 1829 (hh:mm) TCN End Time: 1914 (hh:mm) Tasks performed/discussed with Patient/Family: Made contact with patient, Explained TCN responsibilities to patient/family, Reviewed lab results, Reviewed notes, Completed admission navigator, Wound photo documentation, Started consult(s), Started care plans, and Started education Consult Orders Placed: Consult to Social Work Other Patient Assistance: admission assessment done in the ed. Reviewed chart with daughter who is poa documented in this encounter ED Notes * Anam Ayers DO - 10/02/2022 3:06 PM CDT HPI Chief Complaint Patient presents with Altered Mental Status HPI 6:04 PM - Barbara Chakraborty is a 71 y.o. female patient presenting to the ED via POV from home, here with decreased mental status and reported low O2 saturations at wound care clinic today. Daughter at bedside says the patient is more confused than baseline. No recent fever or chills Patient was being seen for recheck on her right great toe wound. She has dementia and is not a good historian. Past medical history also noted for DM2, HTN, GERD, CKD, schizoaffective disorder bipolar type Patient History: Past Medical History: Diagnosis Date [...] activity: Defer Alcohol Use: Not At Risk Frequency of Alcohol Consumption: Never Average Number of Drinks: Not on file Frequency of Binge Drinking: Not on file Review of Systems Review of Systems Unable to perform ROS: Dementia Physical Exam ED Triage Vitals Temp Pulse Resp BP SpO2 10/02/22 1330 10/02/22 1330 10/02/22 1330 10/02/22 1332 10/02/22 1330 36.8 ??C (98.3 ??F) 85 14 145/61 100 % Temp src Heart Rate Source Patient Position BP Location FiO2 (%) 10/02/22 1330 -- 10/02/22 1330 10/02/22 1330 -- Tympanic Sitting Right arm Height Height Method Weight Weight Method -- -- -- -- Physical Exam Vitals and nursing note reviewed. Constitutional: General: She is not in acute distress. Appearance: She is well-developed. She is not ill-appearing. HENT: Head: Normocephalic and atraumatic. Right Ear: External ear normal. Left Ear: External ear normal. Mouth/Throat: Mouth: Mucous membranes are dry. Eyes: Extraocular Movements: Extraocular movements intact. Conjunctiva/sclera: Conjunctivae normal. Cardiovascular: Rate and Rhythm: Normal rate and regular rhythm. Pulses: Normal pulses. Heart sounds: Normal heart sounds. No murmur heard. Pulmonary: Effort: Pulmonary effort is normal. No respiratory distress. Breath sounds: Normal breath sounds. Abdominal: Palpations: Abdomen is soft. Tenderness: There is no abdominal tenderness. There is no guarding or rebound. Musculoskeletal: General: No swelling. Normal range of motion. Cervical back: Normal range of motion and neck supple. Right lower leg: No edema. Left lower leg: No edema. Skin: General: Skin is warm and dry. Capillary Refill: Capillary refill takes less than 2 seconds. Neurological: General: No focal deficit present. Mental Status: She is alert. She is disoriented. Comments: Oriented to person, and she knows she is at a hospital. Disoriented otherwise. Psychiatric: Mood and Affect: Mood normal. Procedures MDM Labs Reviewed URINALYSIS AND REFLEX TO MICROSCOPIC AND CULTURE - Abnormal Result Value Color, ur Yellow Clarity, ur Turbid (*) Specific gravity, ur 1.010 pH, urine 6.0 Protein, ur ql 2+ (*) Glucose, ur ql 2+ (*) Ketones, ur Negative Bilirubin, ur Negative Blood, ur 1+ (*) Urobilinogen, ur <2.0 Nitrite, ur Negative Leukocyte esterase, ur 4+ (*) UA reflex comment Reflex to microscopic UA will be performed. Narrative: Urine pH is affected by diet, medications, systemic acid-base disturbances, and renal tubular function. pH may affect urinary stone formation. For example, urine pH below 6.0 may help reduce the tendency for calcium phosphate stones and pH greater than 6.0 may reduce the tendency for uric acid stone formation. Source: [facility] IPICO.Last revised 07-02-2017 CBC WITH AUTO DIFFERENTIAL - Abnormal WBC 11.2 (*) Hgb 9.2 (*) Hct 29.1 (*) Plt 343 MPV 11.3 RBC 3.08 (*) MCV 94.5 MCH 29.9 MCHC 31.6 (*) RDW CV 15.6 (*) RDW SD 53.5 (*) NRBC abs 0.00 COMPREHENSIVE METABOLIC PANEL - Abnormal Sodium 144 Potassium, pl 4.2 Chloride 104 CO2 26 Anion gap 14 BUN 38 (*) Creatinine 1.96 (*) Glucose 227 (*) Calcium 9.4 Bilirubin, total 0.2 Protein, pl 7.5 Albumin 3.5 Alk phos 146 (*) ALT 12 AST 18 DIFFERENTIAL AUTO - Abnormal Neutrophil abs 7.0 (*) Imm gran abs 0.0 Lymphocyte abs 3.2 Monocyte abs 0.7 Eosinophil abs 0.2 Basophil abs 0.0 Neutrophil pct 62.2 Imm gran pct 0.3 Lymphocyte pct 28.7 Monocyte pct 6.6 Eosinophil pct 1.9 Basophil pct 0.3 SEPSIS LACTATE WITH REFLEX - Abnormal Sepsis Lactate 2.3 (*) URINALYSIS, MICROSCOPIC ONLY - Abnormal WBC, ur >50 (*) RBC, ur 21-50 (*) Hyaline casts, ur 6-10 Culture Reflex Comment Reflex to urine culture will be performed. POCT GLUCOSE DEVICE - Abnormal Glucose, POC 223 (*) BLOOD CULTURE BLOOD CULTURE URINE CULTURE INFLUENZA A/B, RSV, AND COVID-19 PCR EGFR eGFR 27 SEPSIS LACTATE WITH REFLEX POCT GLUCOSE DEVICE POCT GLUCOSE DEVICE POCT GLUCOSE DEVICE POCT GLUCOSE DEVICE EKG Time 1:34 p.m. Normal sinus rhythm 83 beats per minute Normal axis Normal T-waves Interpretation by me CT Head WO Contrast Final Result Normal study. No intracranial bleed or mass. Electronically signed by: Arabella Ma M.D. XR Chest 1 Vw Portable (Results Pending) BP 164/93 Pulse 79 Temp 36.8 ??C (98.3 ??F) (Tympanic) Resp 16 SpO2 100% MDM Amount and/or Complexity of Data Reviewed Clinical lab tests: reviewed and ordered Tests in the radiology section of CPT??: reviewed and ordered Tests in the medicine section of CPT??: ordered Decide to obtain previous medical records or to obtain history from someone other than the patient:yes Obtain history from someone other than the patient: yes (Daughter at bedside) Review and summarize past medical records: yes Discuss the patient with other providers: yes (Dr. Gamboa, [facility] service. He accepts the patient for admission) Independent visualization of images, tracings, or specimens: yes Risk of Complications, Morbidity, and/or Mortality Presenting problems: moderate Diagnostic procedures: moderate Management options: moderate Differential diagnosis includes but is not limited to dehydration, STEFANO, electrolyte disturbance, occult infection, ICH, CVA 6:06 p.m. Patient will be admitted for further management of her UTI and confusion Daughter is aware of the plan and has been updated on test results Impression: Altered mental status, unspecified altered mental status type Urinary tract infection without hematuria, site unspecified Anam Ayers DO 10/02/221804 * Brittney Valenzuela RN - 10/02/2022 1:33 PM CDT Patients daughter took her to wound clinic. Patient was unable to be seen due to AMS and low O2 documented in this encounter Miscellaneous Notes * Plan of Care - Martha Lu RN - 10/06/2022 6:21 PM CDT Goals: Clinical Goals for the Shift: Blood sugar control, safety, comfort measures Summary: Blood sugars controlled with insulin. Pt spent shift in chair. Chair alarm in place. Safety maintained. Pt stable. Discharge orders placed. IV removed. Pt's daughter to bead picker patient tonight. Paperwork will be left for fruit packer if daughter does not pick patient up prior to end of shift. Patient is discharged. * Plan of Care - Zoie Luis RN - 10/06/2022 3:57 AM CDT Goals: Clinical Goals for the Shift: vss,glucose control,safety,labs wdl Summary: Problem: Health Behavior: Goal: Understanding of [...] environment Outcome: Not Progressing Problem: Activity: Goal: Ability to avoid complications of mobility impairment will improve Outcome: Progressing Problem: Health Behavior: Goal: Identification of resources available to assist in meeting health care needs will improve Outcome: Progressing Problem: Nutritional: Goal: Nutritional status will improve Outcome: Progressing Problem: Skin Integrity: Goal: Signs of wound healing will improve Outcome: Progressing Goal: Skin integrity will improve Outcome: Progressing Goal: Will show no evidence of further tissue damage Outcome: Progressing * Plan of Care - Lulú Orourke RN - 10/05/2022 2:36 PM CDT Goals: Clinical Goals for the Shift: vss,glucose control,safety,labs wdl Problem: Health Behavior: Goal: Understanding of discharge [...] home environment Outcome: Progressing Problem: Activity: Goal: Ability to avoid complications of mobility impairment will improve Outcome: Progressing Problem: Lack of Knowledge: Goal: Knowledge of the prescribed therapeutic regimen will improve Outcome: Progressing Goal: Ability to demonstrate proper wound care will improve Outcome: Progressing Problem: Health Behavior: Goal: Identification of resources available to assist in meeting health care needs will improve Outcome: Progressing Problem: Nutritional: Goal: Nutritional status will improve Outcome: Progressing Problem: Skin Integrity: Goal: Signs of wound healing will improve Outcome: Progressing Goal: Skin integrity will improve Outcome: Progressing Goal: Will show no evidence of further tissue damage Outcome: Progressing Problem: Cognitive: Goal: Family members realistic understanding of the patients condition will improve Outcome: Progressing Goal: Orientation to person, place, and time will be maintained or improved Outcome: Progressing Problem: Health Behavior: Goal: Identification of resources available to assist in meeting health care needs will improve Outcome: Progressing Problem: Role Relationship: Goal: Ability to participate appropriately in conversations will be maintained or improved Outcome: Progressing Problem: Safety: Goal: Ability to remain free from injury will be maintained or improved Outcome: Progressing Problem: Self-Care: Goal: Ability to participate in self-care as condition permits will be maintained or improved Outcome: Progressing Problem: Lack of Knowledge: Goal: Ability to demonstrate use of device to measure blood glucose level will improve Outcome: Progressing Goal: Ability to understand the physical conditions that increase the risk for unstable blood glucose will improve Outcome: Progressing Problem: Health Behavior: Goal: Compliance with therapeutic regimen will improve Outcome: Progressing Problem: Metabolic: Goal: Ability to maintain appropriate glucose levels will improve Outcome: Progressing Problem: Nutritional: Goal: Ability to identify appropriate dietary choices will improve Outcome: Progressing Problem: Lack of Knowledge: Goal: Knowledge of the prescribed therapeutic regimen will improve Outcome: Progressing Goal: Knowledge of disease or condition will improve Outcome: Progressing Problem: Sensory: Goal: General experience of comfort will improve Outcome: Progressing Problem: Urinary Elimination: Goal: Signs and symptoms of infection will decrease Outcome: Progressing Goal: Ability to reestablish a normal urinary elimination pattern will improve Outcome: Progressing Goal: Complications related to the disease process, condition or treatment will be avoided or minimized Outcome: Progressing Problem: Safety: Goal: Risk of elopement will decrease Outcome: Progressing Goal: Ability to remain free from injury will improve Outcome: Progressing Problem: Lack of [...] Goal: Pain level will decrease Outcome: Progressing Problem: Activity: Goal: Ability to return to normal activity level will improve Outcome: Progressing Problem: Lack of Knowledge: Goal: Knowledge of the prescribed therapeutic regimen will improve Outcome: Progressing Problem: Coping: Goal: Ability to cope will improve Outcome: Progressing Problem: Health Behavior: Goal: Identification of resources available to assist in meeting health care needs will improve Outcome: Progressing Problem: Sensory: Goal: Pain level will decrease Outcome: Progressing Summary: RN: patient is still confused but is getting stronger, continue IV antibiotics * [facility] [place] - Zoie Luis RN - 10/05/2022 5:13 AM CDT Goals: Clinical Goals for the Shift: vss,glucose control,safety,labs wdl Summary: Problem: Health Behavior: Goal: Understanding of [...] home environment Outcome: Progressing Problem: Activity: Goal: Ability to avoid complications of mobility impairment will improve Outcome: Progressing * Estefany of Myah Escalante - 10/04/2022 11:59 AM CDT Problem: Health Behavior: Goal: Understanding [...] home environment Outcome: Progressing Problem: Activity: Goal: Ability to avoid complications of mobility impairment will improve Outcome: Progressing Problem: Skin Integrity: Goal: Signs of wound healing will improve Outcome: Progressing Goal: Skin integrity will improve Outcome: Progressing Goal: Will show no evidence of further tissue damage Outcome: Progressing Problem: Safety: Goal: Ability to remain free from injury will be maintained or improved Outcome: Progressing Problem: Safety: Goal: Risk of elopement will decrease Outcome: Progressing Goal: Ability to remain free from injury will improve Outcome: Progressing Goals: monitor blood glucose, safety and comfort Summary: Alert and awake, up to chair. Blood glucose monitored and due insulin given. Wound care done to great toe. Episode of elevated BP, due Coreg given, /Jonel Dennis notified. Kept safe and free from injury throughout the shift. * Plan of Care - Tahmina Esteves RN - 10/04/2022 5:22 AM CDT Goals: Clinical Goals for the Shift: vss,glucose control,safety,labs wdl Summary: * Plan of Care - Makayla Lee RN - 10/03/2022 6:41 PM CDT Problem: Health Behavior: Goal: Understanding of discharge needs will improve Outcome: Not Progressing Problem: Lack of Knowledge: Goal: Ability to state ways to decrease the risk of falls will improve Outcome: Not Progressing Problem: Activity: Goal: Ability to avoid complications of mobility impairment will improve Outcome: Not Progressing Problem: Skin Integrity: Goal: Signs of wound healing will improve Outcome: Not Progressing Goal: Skin integrity will improve Outcome: Not Progressing Goal: Will show no evidence of further tissue damage Outcome: Not Progressing Problem: Role Relationship: Goal: Ability to participate appropriately in conversations will be maintained or improved Outcome: Not Progressing Problem: Metabolic: Goal: Ability to maintain appropriate glucose levels will improve Outcome: Not Progressing Problem: Nutritional: Goal: Ability to identify appropriate dietary choices will improve Outcome: Not Progressing Goals: Clinical Goals for the Shift: safety, comfort, vss Summary: Patient unable to understand education at this time. Caregiver should be present. Patient confused at times. * Initial Assessments - Jnae Woody RN - 10/03/2022 5:10 PM CDT CM Initial Assessment Interview Note Information Obtained From: Patient (10/03/221706) Admission Source: Transfer from the ED. Impression: Admitted IP 10/02/22 for AMS. Plan Includes: CT head, chest x-ray, IV rocephin, IV fluids, blood cultures, UTI. Consult to Nephrology Primary Source of Transportation: Self. Her daughter will supply discharge transportation. Does thepatient need discharge transport arranged?: No Has discharge transport been arranged?: No Details of Transportation: Patients daughter will supply discharge transportation. (10/03/221706) Health Insurance Coverage: Medicare A and B and [place]. Prescription Coverage: Medicare [place] and [place]. Pharmacy: [id number] - [place] - [address] [place] [address] [place] [address] Primary Care Provider: Patient declined assistance with setting up a PCP appointment. Duane Corcoran MD Prior to Admission: Primary Caregiver: Self Who does the patient or legal guardian want to receive education instruction and discharge plans for after care assistance?: Decline Caregiver Name: Areli Galye Relationship to patient: daughter Caregiver Contact Information: [phone] Support System: Metranome Support system contact info (name, phone, availablity): Areli Gayle [phone] and Malena Khan [phone] (daughters) Home Care Services: No Durable Medical Equipment: Cane (single prong) Living Arrangements: Children Type of Residence: Private residence Steps in home? : Yes, Outside of home Number of steps outside:: 2 steps (10/02/221845) SDOH: Transportation: In the past 12 months, has lack of transportation kept you from medical appointments or from getting medications?: No In the past 12 months, has lack of transportation kept you from meetings, work, or from getting things needed for daily living?: No (10/03/221709) Financial Resource: How hard is it for you to pay for the very basics like food, housing, medical care, and heating?: Not very hard (10/03/221709) Housing: In the last 12 months, was there a time when you were not able to pay the mortgage or rent on time?: No In the last 12 months, how many places have you lived?: 1 In the last 12 months, was there a time when you did not have a steady place to sleep or slept in ashelter (including now)?: No (10/03/221709) Social Connections: In a typical week, how many times do you talk on the phone with family, friends, or neighbors?: More than three times a week How often do you get together with friends or relatives?: More than three times a week How often do you attend pentecostal or oriental orthodox services?: More than 4 times per year Do you belong to any clubs or organizations such as pentecostal groups, unions, fraternal or athletic groups, or school groups?: No How often do you attend meetings of the clubs or organizations you belong to?: Never Are you , , , , never , or living with a partner?: (10/03/221709) Food Insecurity: Within the past 12 months, you worried that your food would run out before you got the money to buymore.: Never true Within the past 12 months, the food you bought just didn't last and you didn't have money to get more.: Never true (10/03/221709) Alcohol Use: PHQ Screening Potential discharge needs include: Dialysis: Behavioral Health Services: Behavioral Health Services: No (10/03/22 905) Patient expects to be Discharged to: Private residence, (10/03/221706) Additional Information: CM met with patient at bedside to complete initial discharge planning. Demographics verified via face sheet. Patient lives in a house with her daughter. She is independent with all of her own self care. She reports she drives without issue but her daughter assist her with her transportation needs. Her only DME is a a cane. She named her children her reproductive healthcare assistant. Her goal at time of discharge is to return home. Her daughter will supply discharge transportation. No known discharge needs at this time CM will continue to follow for discharge needs. Patient's Identified Problem/Goal Problem: Ensure acute medical [...] Collaboration with patient, MD, direct care nurse, Chain Dyer, and other members of the health care team to assure needed interventions completed. 2. Return patient to optimal level of self-care post discharge. 3. Motorbike Courier will follow for Discharge Planning - interventions as needed 4. Anticipated level of care at discharge 5. Planned Discharge Disposition Jane Woody RN * Plan of Care - Breanna Jones RN - 10/03/2022 4:02 AM CDT Problem: Cognitive: Goal: Orientation to person, place, and time will be maintained or improved Outcome: Progressing Problem: Health Behavior: Goal: Identification of resources available to assist in meeting health care needs will improve Outcome: Progressing Problem: Safety: Goal: Ability to remain free from injury will be maintained or improved Outcome: Progressing Problem: Lack of Knowledge: Goal: Knowledge of the prescribed therapeutic regimen will improve Outcome: Progressing Problem: Sensory: Goal: General experience of comfort will improve Outcome: Progressing Goals: Clinical Goals for the Shift: safety, comfort, vss Summary: patient admitted for UTI treatment. Oriented to self and place only with dementia as baseline. wound to right great toe present on admit that is being treated at wound clinic. Nephrology is consulted due BUN and creat elevation documented in this encounter Plan of Treatment Upcoming Encounters Date Type Department Care Team (Latest Contact Info) Description 07/13/2024 9:00 AM LATENT PRINT EXAMINER Hospital Encounter [facility] [address] [place] [address] Jaya Grier MD [address] [place] [address] 07/13/2024 9:00 AM LATENT PRINT EXAMINER - 07/13/2024 9:30 AM LATENT PRINT EXAMINER Surgery [facility] [address] [place] [address] Jaya Grier MD [facility] [place] [address] ESOPHAGOGASTRODUODENOSCOPY Scheduled Procedures Name Priority Associated Diagnoses Date/Ti me ESOPHAGOGASTRODUODENOSCOPY Anemia, unspecified type Gastritis without bleeding, unspecified chronicity, unspecified gastritis type 07/13/2024 9:00 AM LATENT PRINT EXAMINER COLONOSCOPY Iron deficiency anemia due to chronic blood loss documented as of this encounter Procedures Procedure Name Priority Date/Time Associated Diagnosis Comments POCT GLUCOSE DEVICE Routine 10/06/2022 9 :10 PM CDT POCT GLUCOSE DEVICE Routine 10/06/2022 5 :06 PM CDT POCT GLUCOSE DEVICE Routine 10/06/2022 1 2:05 PM CDT EGFR Routine 10/06/2022 8:14 AM CDT DIFFERENTIAL AUTO Routine 10/06/2022 8:1 4 AM CDT CBC WITH AUTO DIFFERENTIAL Routine 10/06/2022 8:14 AM CDT MAGNESIUM Routine 10/06/2022 8:14 AM CDT BASIC METABOLIC PANEL Routine 10/06/2022 8:14 AM CDT POCT GLUCOSE DEVICE Routine 10/06/2022 7 :43 AM CDT POCT GLUCOSE DEVICE Routine 10/06/2022 6 :25 AM CDT POCT GLUCOSE DEVICE Routine 10/05/2022 8 :16 PM CDT POCT GLUCOSE DEVICE Routine 10/05/2022 4 :45 PM CDT POCT GLUCOSE DEVICE Routine 10/05/2022 1 2:26 PM CDT POCT GLUCOSE DEVICE Routine 10/05/2022 7 :37 AM CDT POCT GLUCOSE DEVICE Routine 10/05/2022 1 :31 AM CDT POCT GLUCOSE DEVICE Routine 10/04/2022 8 :07 PM CDT POCT GLUCOSE DEVICE Routine 10/04/2022 5 :14 PM CDT POCT GLUCOSE DEVICE Routine 10/04/2022 1 1:28 AM CDT POCT GLUCOSE DEVICE Routine 10/04/2022 7 :22 AM CDT POCT GLUCOSE DEVICE Routine 10/04/2022 5 :06 AM CDT POCT GLUCOSE DEVICE Routine 10/04/2022 1 2:36 AM CDT POCT GLUCOSE DEVICE Routine 10/03/2022 8 :11 PM CDT POCT GLUCOSE DEVICE Routine 10/03/2022 5 :02 PM CDT AEROBIC AND ANAEROBIC CULTURE AND GRAM STAIN Routine 10/03/2022 1:28 PM CDT BLOOD CULTURE Routine 10/03/2022 1:28 PM CDT BLOOD CULTURE Routine 10/03/2022 1:28 PM CDT POCT GLUCOSE DEVICE Routine 10/03/2022 1 1:53 AM CDT POCT GLUCOSE DEVICE Routine 10/03/2022 7 :48 AM CDT POCT GLUCOSE DEVICE Routine 10/03/2022 1 :50 AM CDT SEPSIS LACTATE WITH REFLEX Timed 10/03/2022 1:28 AM CDT EGFR Routine 10/03/2022 1:28 AM CDT IRON PROFILE W/ IBC Routine 10/03/2022 1 :28 AM CDT PHOSPHORUS Routine 10/03/2022 1:28 AM CDT MAGNESIUM Routine 10/03/2022 1:28 AM CDT FOLATE Routine 10/03/2022 1:28 AM CDT VITAMIN B12 Routine 10/03/2022 1:28 AM CDT BASIC METABOLIC PANEL Routine 10/03/2022 1:28 AM CDT SEPSIS LACTATE WITH REFLEX Timed 10/02/2022 10:09 PM CDT POCT GLUCOSE DEVICE Routine 10/02/2022 9 :40 PM CDT INFLUENZA A/B, RSV, AND COVID-19 PCR Routine 10/02/2022 6:48 PM CDT POCT GLUCOSE DEVICE Routine 10/02/2022 6 :30 PM CDT XR CHEST 1 VIEW ED 10/02/2022 6:24 PM CDT SEPSIS LACTATE WITH REFLEX STAT 10/02/2022 5:26 PM CDT BLOOD CULTURE STAT 10/02/2022 5:26 PM CDT BLOOD CULTURE STAT 10/02/2022 5:26 PM CDT EGFR STAT 10/02/2022 3:56 PM CDT DIFFERENTIAL AUTO STAT 10/02/2022 3:5 6 PM CDT URINALYSIS AND REFLEX TO MICROSCOPIC AND CULTURE STAT 10/02/2022 3:56 PM CDT CBC WITH AUTO DIFFERENTIAL STAT 10/02/2022 3:56 PM CDT URINALYSIS, MICROSCOPIC ONLY STAT 10/02/2022 3:56 PM CDT URINE CULTURE STAT 10/02/2022 3:56 PM CDT COMPREHENSIVE METABOLIC PANEL STAT 10/02/2022 3:[address] HEAD WO CONTRAST ED 10/02/2022 3 :26 PM CDT POCT GLUCOSE DEVICE Routine 10/02/2022 1 :37 PM CDT ECG 12-LEAD STAT 10/02/2022 1:34 PM CDT documented in this encounter Results * (ABNORMAL) POCT glucose (10/06/2022 9:10 PM CDT) [facility] Glucose, POC 213(H) 70 - 199 mg/dL [facility] Blood 10/06/2022 9:10 PM CDT 10/06/2022 9:10 PM CDT Cristóbal Gould DO LAB POCT ORDERABLES - ROSE CE Final Result Performing Organization Address [facility] Co de Phone Number NILSA [address] [facility] [place] [address] * POCT glucose (10/06/2022 5:06 PM CDT) Glucose, POC 199 70 - 199 mg/dL [facility] Blood 10/06/2022 5:06 PM CDT 10/06/2022 5:06 PM CDT Cristóbal Gould DO LAB POCT ORDERABLES - ROSE CE Final Result Performing Organization Address [facility] Co de Phone Number [facility] [address] [facility] [place] [address] * (ABNORMAL) POCT glucose (10/06/2022 12:05 PM CDT) Glucose, POC 207(H) 70 - 199 mg/dL [facility] Blood 10/06/2022 12:0 5 PM CDT 10/06/2022 12:05 PM CDT Cristóbal Gould DO LAB POCT ORDERABLES - ROSE CE Final Result Performing Organization Address [facility] de Phone Number NILSA [address] [facility] [place] [address] * eGFR (10/06/2022 8:14 AM CDT) eGFR 32 mL/min/1. 73 m2 [facility] Comment: Interpretive Data Reference Interval [...] interpretive data was last reviewed 2021. Blood 10/06/2022 8:14 AM CDT 10/06/2022 8:29 AM CDT Cristóbal Gould DO LAB BLOOD ORDERABLES Final Result [facility] [address] [place] [address] * Differential, auto (10/06/2022 8:14 AM CDT) Neutrophil abs 4.6 1.7 - 6.5 K/cumm [facility] Imm gran abs 0.0 0.0 - 0.1 K/cumm [facility] Lymphocyte abs 2.6 0.8 - 3.3 K/cumm [facility] Monocyte abs 0.6 0.2 - 0.8 K/cumm [facility] Eosinophil abs 0.3 0.0 - 0.5 K/cumm [facility] Basophil abs 0.0 0.0 - 0.1 K/cumm [facility] Neutrophil pct 57.3 % [facility] Comment: Interpretive Data Percent cell count reference ranges are not reported, since discordance with absolute values may lead to misinterpretation of CBC data. Current Interpretive Data was last revised on 2017. Imm gran pct 0.2 % [facility] Comment: Interpretive Data Percent cell count reference ranges are not reported, since discordance with absolute values may lead to misinterpretation of CBC data. Current Interpretive Data was last revised on 2017. Lymphocyte pct 31.5 % [facility] Comment: Interpretive Data Percent cell count reference ranges are not reported, since discordance with absolute values may lead to misinterpretation of CBC data. Current Interpretive Data was last revised on 2017. Monocyte pct 7.3 % [facility] Comment: Interpretive Data Percent cell count reference ranges are not reported, since discordance with absolute values may lead to misinterpretation of CBC data. Current Interpretive Data was last revised on 2017. Eosinophil pct 3.2 % [facility] Comment: Interpretive Data Percent cell count reference ranges are not reported, since discordance with absolute values may lead to misinterpretation of CBC data. Current Interpretive Data was last revised on 2017. Basophil pct 0.5 % [facility] Comment: Interpretive Data Percent cell count reference ranges are not reported, since discordance with absolute values may lead to misinterpretation of CBC data. Current Interpretive Data was last revised on 2017. Blood 10/06/2022 8:14 AM CDT 10/06/2022 8:29 AM CDT [facility] BLOOD ORDERABLES Final Result Performing Organization Address City/[facility]/ZIP Co de Phone Number [facility] [address] [facility] [place] [address] * Magnesium (10/06/2022 8:14 AM CDT) Magnesium 2.1 1.4 - 2.5 mg/dL [facility] Blood 10/06/2022 8:14 AM CDT 10/06/2022 8:29 AM CDT [facility] BLOOD ORDERABLES Final Result Performing Organization Address City/[facility]/ZIP Co de Phone Number [facility] [address] [place] [address] * (ABNORMAL) CBC with auto differential (10/06/2022 8:14 AM CDT) Pathologist [facility] WBC 8.1 3.8 - 9.9 K/cumm [facility] Hgb 8.6(L) 11.9 - 15.5 g/dL [facility] Hct 28.1(L) 35.6 - 45.5 % [facility] Plt 309 150 - 400 K/cumm [facility] MPV 11.1 9.1 - 12.3 fL [facility] RBC 2.91(L) 3.90 - 5.20 M/cumm [facility] MCV 96.6(H) 81.3 - 96.4 fL [facility] MCH 29.6 27.1 - 33.3 pg [facility] MCHC 30.6(L) 32.3 - 35.7 g/dL [facility] RDW CV 15.3(H) 11.1 - 14.9 % [facility] RDW SD 54.1(H) 35.7 - 48.1 fL [facility] NRBC abs 0.00 0.00 - 0.01 K/cumm [facility] Blood 10/06/2022 8:14 AM CDT 10/06/2022 8:29 AM CDT Cristóbal Gould LAB BLOOD ORDERABLES Final Result NILSA [address] [place] [address] * (ABNORMAL) Basic metabolic panel (10/06/2022 8:14 AM CDT) Pathologist [facility] Sodium 144 135 - 145 mmol/L [facility] Potassium, pl 4.4 3.3 - 4.9 mmol/L [facility] Chloride 110 97 - 110 mmol/L [facility] CO2 25 22 - 32 mmol/L [facility] Anion gap 9 2 - 15 mmol/L [facility] BUN 31(H) 8 - 25 mg/dL [facility] Creatinine 1.70(H) 0.60 - 1.10 mg/dL [facility] Glucose 138 70 - 199 mg/dL [facility] Comment: [...] Calcium 9.3 8.5 - 10.3 mg/dL [facility] Blood 10/06/2022 8:14 AM CDT 10/06/2022 8:29 AM CDT [facility] BLOOD ORDERABLES Final Result Performing Organization Address [facility] Co de Phone Number NILSA [address] [place] [address] * POCT glucose (10/06/2022 7:43 AM CDT) Glucose, POC 132 70 - 199 mg/dL [facility] Blood 10/06/2022 7:43 AM CDT 10/06/2022 7:[address] [address] [facility] - ROSE CE Final Result Performing Organization Address [facility] de Phone Number NILSA [address] [place] [place] [address] * POCT glucose (10/06/2022 6:25 AM CDT) Glucose, POC 123 70 - 199 mg/dL [facility] Blood 10/06/2022 6:25 AM CDT 10/06/2022 6:25 AM CDT [facility] POCT ORDERABLES - ROSE CE Final Result Performing Organization Address [facility] Co de Phone Number NILSA MCDONNELL [address] [address] [facility] [place] [address] * (ABNORMAL) POCT glucose (10/05/2022 8:16 PM CDT) Glucose, POC 216(H) 70 - 199 mg/dL [facility] Blood 10/05/2022 8:16 PM CDT 10/05/2022 8:16 PM CDT [facility] POCT ORDERABLES - ROSE CE Final Result NILSA MCDONNELL [address] [address] [facility] [place] [address] * (ABNORMAL) POCT glucose (10/05/2022 4:45 PM CDT) Glucose, POC 210(H) 70 - 199 mg/dL [facility] Blood 10/05/2022 4:45 PM CDT 10/05/2022 4:45 PM CDT [facility] POCT ORDERABLES - ROSE CE Final Result NILSA MCDONNELL [address] [facility] [place] [address] * POCT glucose (10/05/2022 12:26 PM CDT) Glucose, POC 191 70 - 199 mg/dL [facility] Blood 10/05/2022 12:2 6 PM CDT 10/05/2022 12:26 PM CDT [facility] POCT ORDERABLES - ROSE CE Final Result NILSA MCDONNELL [address] [address] [facility] [place] [address] * POCT glucose (10/05/2022 7:37 AM CDT) Glucose, POC 165 70 - 199 mg/dL [facility] Blood 10/05/2022 7:37 AM CDT 10/05/2022 7:37 AM CDT Cristóbal Gould DO LAB POCT ORDERABLES - ROSE CE Final Result Performing Organization Address [facility] Co de Phone Number NILSA MCDONNELL [address] [address] [facility] [place] [address] * POCT glucose (10/05/2022 1:31 AM CDT) Glucose, POC 182 70 - 199 mg/dL [facility] Blood 10/05/2022 1:31 AM CDT 10/05/2022 1:31 AM CDT Larry Dennis MD LAB POCT ORDERABLES - DEVICE Fi nal Result Performing Organization Address [facility] de Phone Number NILSA MCDONNELL [address] [place] [address] * (ABNORMAL) POCT glucose (10/04/2022 8:07 PM CDT) Glucose, POC 254(H) 70 - 199 mg/dL [facility] Blood 10/04/2022 8:07 PM CDT 10/04/2022 8:07 PM CDT Larry Dennis MD LAB POCT ORDERABLES - DEVICE Fi nal Result Performing Organization Address [facility] de Phone Number NILSA MCDONNELL [address] [address] [facility] [place] [address] * (ABNORMAL) POCT glucose (10/04/2022 5:14 PM CDT) Glucose, POC 227(H) 70 - 199 mg/dL [facility] Blood 10/04/2022 5:14 PM CDT 10/04/2022 5:14 PM CDT Larry Dennis MD LAB POCT ORDERABLES - DEVICE Fi nal Result Performing Organization Address City/[facility]/ZIP Co de Phone Number NILSA MCDONNELL [address] [address] [facility] [address] [place], [place] [id number] * (ABNORMAL) POCT glucose (10/04/2022 11:28 AM CDT) Glucose, POC 251(H) 70 - 199 mg/dL [facility] Blood 10/04/2022 11:2 8 AM CDT 10/04/2022 11:28 AM CDT Larry Dennis MD LAB POCT ORDERABLES - DEVICE Fi nal Result Performing Organization Address [facility] Co de Phone Number NILSA MCDONNELL [address] [place] [address] * POCT glucose (10/04/2022 7:22 AM CDT) Glucose, POC 176 70 - 199 mg/dL [facility] Blood 10/04/2022 7:22 AM CDT 10/04/2022 7:22 AM CDT Larry Dennis MD LAB POCT ORDERABLES - DEVICE Fi nal Result Performing Organization Address City/[facility] Co de Phone Number NILSA MCDONNELL [address] [place] [address] * POCT glucose (10/04/2022 5:06 AM CDT) Glucose, POC 154 70 - 199 mg/dL [facility] Blood 10/04/2022 5:06 AM CDT 10/04/2022 5:06 AM CDT Darren Morgan DO LAB POCT ORDERABLES - DEVICE Final Result Performing Organization Address City/[facility]/ZIP Co de Phone Number NILSA MCDONNELL [address] [place] [address] * (ABNORMAL) POCT glucose (10/04/2022 12:36 AM CDT) Glucose, POC 224(H) 70 - 199 mg/dL [facility] Blood 10/04/2022 12:3 6 AM CDT 10/04/2022 12:36 AM CDT [facility] POCT ORDERABLES - DEVICE Final Result Performing Organization Address [facility] Co de Phone Number NILSA KECIA [address] [place] [address] * (ABNORMAL) POCT glucose (10/03/2022 8:11 PM CDT) Glucose, POC 245(H) 70 - 199 mg/dL NILSA Blood 10/03/2022 8:11 PM CDT 10/03/2022 8:11 PM CDT [facility] POCT ORDERABLES - DEVICE Final Result Performing Organization Address [facility] Co de Phone Number NILSA [address] [place] [address] * (ABNORMAL) POCT glucose (10/03/2022 5:02 PM CDT) Glucose, POC 318(H) 70 - 199 mg/dL [facility] Blood 10/03/2022 5:02 PM CDT 10/03/2022 5:02 PM CDT [facility] POCT ORDERABLES - DEVICE Final Result Performing Organization Address [facility] Co de Phone Number [facility]QU[facility] [address] [address] [facility] [place] [address] * Blood culture Blood Forearm, right (10/03/2022 1:28 PM CDT) Report Final Report: No growth NILSA Comment:Testing performed by : [facility], [address], [place]., [address] Blood (Forearm, right) 10/03/2022 1:28 PM CDT 10/03/2022 3:58 PM CDT Steve ASH CH - 10/07/2022 4:01 PM CDT From a different site than [...] organism identification may be performed using the [employer] Gram-Positive Blood Culture Assay. This assay detects microbial DNA in positive blood culture broth via hybridization of target DNA to capture oligonucleotides on a microarray. This assay has been cleared by the [place] Food and Drug Administration and its performance characteristics have been verified by the [facility] Microbiology Laboratory. 5. ?For questions about this culture, contact the Microbiology Laboratory at [phone]. Interpretive data was last revised on 2019. Darren Morgan DO LAB MICROBIOLOGY - NERAL ORDERABLES Final Result NILSA MCDONNELL [address] [place] [address] * Blood culture Blood Hand, right (10/03/2022 1:28 PM CDT) Report Final Report: No growth NILSA MCDONNELL Comment:Testing performed by : [facility], [address], [place]., [address] Blood (Hand, right) 10/03/2022 1:28 PM CDT 10/03/2022 3:58 PM CDT Steve ASH CH - 10/07/2022 4:01 PM CDT Collection->Peripheral 1. ?Blood cultures are [...] organism identification may be performed using the [employer] Gram-Positive Blood Culture Assay. This assay detects microbial DNA in positive blood culture broth via hybridization of target DNA to capture oligonucleotides on a microarray. This assay has been cleared by the [place] Food and Drug Administration and its performance characteristics have been verified by the [facility]biology [facility]. 5. ?For questions about this culture, contact the Microbiology Laboratory at [phone]. Interpretive data was last revised on 2019. Darren Morgan DO LAB MICROBIOLOGY - NERAL ORDERABLES Final Result NILSA MCDONNELL [address] [place] [address] * Aerobic and anaerobic culture and gram stain Wound Foot, right (10/03/2022 1:28 PM CDT) Direct Specimen Exam Stain: No polymorphonuclear leukocytes seen. No organisms seen. NILSA MCDONNELL Comment:Testing performed by : [facility], [address] [place]., [address] Report Final Report: No growth NILSA MCDONNELL Comment:Testing performed by : [facility], [address] [place]., [address] Wound (Foot, right) 10/03/2022 1:28 PM CDT 10/03/2022 3:57 PM CDT Narrative NILSA - 10/06/2022 9:18 AM CDT Specimen received on an ESwab. Testing performed by [facility] ([phone]) Specimens submitted from normally sterile body sites [...] interpretive data was last revised on 2019. Darren Morgan DO LAB MICROBIOLOGY - GE NERAL ORDERABLES Final Result NILSA MCDONNELL [id number] [place] [address] * (ABNORMAL) POCT glucose (10/03/2022 11:53 AM CDT) Glucose, POC 263(H) 70 - 199 mg/dL NILSA Blood 10/03/2022 11:5 3 AM CDT 10/03/2022 11:53 AM CDT Darren Morgan DO LAB POCT ORDERABLES - DEVICE Final Result NILSA KEC[address] [place] [address] * POCT glucose (10/03/2022 7:48 AM CDT) Glucose, POC 171 70 - 199 mg/dL [facility] Blood 10/03/2022 7:48 AM CDT 10/03/2022 7:48 AM CDT Darren Morgan DO LAB POCT ORDERABLES - DEVICE Final Result Performing Organization Address [facility] de Phone Number [facility] [address] [facility] [place] [address] * (ABNORMAL) POCT glucose (10/03/2022 1:50 AM CDT) Glucose, POC 241(H) 70 - 199 mg/dL [facility] Blood 10/03/2022 1:50 AM CDT 10/03/2022 1:50 AM CDT Gill Gamboa MD LAB POCT ORDERABLES - DEVICE Final Result Performing Organization Address [facility] de Phone Number [facility] [address] [place] [address] * eGFR (10/03/2022 1:28 AM CDT) eGFR 30 mL/min/1. 73 m2 [facility] Comment: Interpretive Data Reference Interval [...] interpretive data was last reviewed 2021. Blood 10/03/2022 1:28 AM CDT 10/03/2022 1:39 AM CDT Mauricio Figueroa MD LAB BLOOD ORDERABLES Final Result Performing Organization Address City/[facility]/ZIP Co de Phone Number [facility] [address] [place] [address] * Sepsis Lactate w/ Reflex (10/03/2022 1:28 AM CDT) Sepsis Lactate 1.7 0.7 - 2.0 mmol/L [facility] Blood 10/03/2022 1:28 AM CDT 10/03/2022 1:39 AM CDT Anam Ayers DO LAB BLOOD ORDERABLES Final Res ult Performing Organization Address [facility] Co de Phone Number [facility] [address] [place] [address] * Folate (10/03/2022 1:28 AM CDT) Folic acid 17.9 >=5.0 ng/mL [facility] Comment:Hemolysis present. R esults may be affected. Blood 10/03/2022 1:28 AM CDT 10/03/2022 1:39 AM CDT Mauricio Figueroa MD LAB BLOOD ORDERABLES Final Result Performing Organization Address [facility] Co de Phone Number [facility] [address] [place] [address] * Vitamin B12 (10/03/2022 1:28 AM CDT) Vitamin B12 588 230 - 1,250 pg/mL [facility] Blood 10/03/2022 1:28 AM CDT 10/03/2022 1:39 AM CDT Mauricio Figueroa MD LAB BLOOD ORDERABLES Final Result Performing Organization Address City/[facility] Co de Phone Number NILSA MCDONNELL [address] [place] [address] * (ABNORMAL) Iron profile w/ IBC (10/03/2022 1:28 AM CDT) Iron 43 35 - 145 mcg/dl [facility] TIBC 162(L) 250 - 400 mcg/dL [facility] Transferrin saturation 27 20 - 50 % [facility] Blood 10/03/2022 1:28 AM CDT 10/03/2022 1:39 AM CDT Mauricio Figueroa MD LAB BLOOD ORDERABLES Final Result Performing Organization Address [facility] Co de Phone Number NILSA KECIA [address] [place] [address] * Phosphorus (10/03/2022 1:28 AM CDT) Phosphorus, pl 3.3 2.3 - 4.5 mg/dL [facility] Blood 10/03/2022 1:28 AM CDT 10/03/2022 1:39 AM CDT Mauricio Figueroa MD LAB BLOOD ORDERABLES Final Result Performing Organization Address City/[facility] Co de Phone Number NILSA MCDONNELL [address] [facility] [place] [address] * Magnesium (10/03/2022 1:28 AM CDT) Magnesium 1.8 1.4 - 2.5 mg/dL [facility] Blood 10/03/2022 1:28 AM CDT 10/03/2022 1:39 AM CDT Mauricio Figueroa MD LAB BLOOD ORDERABLES Final Result Performing Organization Address [facility]/ZIP Co de Phone Number NILSA MCDONNELL [address] [place] [address] * (ABNORMAL) Basic metabolic panel (10/03/2022 1:28 AM CDT) Pathologist [facility] Sodium 146(H) 135 - 145 mmol/L [facility] Potassium, pl 3.9 3.3 - 4.9 mmol/L [facility] Chloride 111(H) 97 - 110 mmol/L [facility] CO2 25 22 - 32 mmol/L [facility] Anion gap 10 2 - 15 mmol/L [facility] BUN 35(H) 8 - 25 mg/dL [facility] Creatinine 1.80(H) 0.60 - 1.10 mg/dL [facility] Glucose 199 70 - 199 mg/dL [facility] Comment: [...] Calcium 8.6 8.5 - 10.3 mg/dL [facility] Blood 10/03/2022 1:28 AM CDT 10/03/2022 1:39 AM CDT Mauricio Figueroa MD LAB BLOOD ORDERABLES Final Result Performing Organization Address [facility] Co de Phone Number NILSA MCDONNELL [address] [place] [address] * (ABNORMAL) Sepsis Lactate w/ Reflex (10/02/2022 10:09 PM CDT) [facility] Sepsis Lactate 3.4(H) 0.7 - 2.0 mmol/L [facility] Blood 10/02/2022 10:0 9 PM CDT 10/02/2022 10:23 PM CDT Anam Ayers DO LAB BLOOD ORDERABLES Final Res ult Performing Organization Address [facility] Co de Phone Number [facility] [address] [place] [address] * (ABNORMAL) POCT glucose (10/02/2022 9:40 PM CDT) [facility] Glucose, POC 351(H) 70 - 199 mg/dL [facility] Blood 10/02/2022 9:40 PM CDT 10/02/2022 9:40 PM CDT Gill Gamboa MD LAB POCT ORDERABLES - DEVICE Final Result Performing Organization Address [facility] de Phone Number [facility] [address] [place] [address] * Influenza A/B, RSV, and COVID-19 PCR Nasopharyngeal (10/02/2022 6:48 PM CDT) [facility] COVID-19 RNA Negative Negative [facility] Influenza A RNA Negative Negative [facility] Influenza B RNA Negative Negative [facility] RSV RNA Negative Negative [facility] Comment: Interpretive data: This test is performed using the [employer] Xpert Xpress CoV-2/Flu/RSV plus assay. This is [...] infection. Interpretive Data last revised 2021. Nasopharyngeal 10/02/2022 6: 48 PM CDT 10/02/2022 7:17 PM CDT Narrative [facility] - 10/02/2022 8:13 PM CDT Is the Patient experiencing symptoms consistent with COVID?->Yes Date of Symptom Onset->10/01/22 Reason for testing?->Bed placement or semi-private room Anam Ayers DO LAB MICROBIOLOGY - GENERAL ORD ERABLES Final Result Performing Organization Address [facility] Co de Phone Number [facility] [address] [place] [address] * (ABNORMAL) POCT glucose (10/02/2022 6:30 PM CDT) [facility] Signature Glucose, POC 239(H) 70 - 199 mg/dL [facility] Blood 10/02/2022 6:30 PM CDT 10/02/2022 6:30 PM CDT Gill Gamboa MD LAB POCT ORDERABLES - DEVICE Final Result Performing Organization Address [facility] Co de Phone Number [facility] [address] [place] [address] * XR Chest 1 Vw Portable (10/02/2022 6:24 PM CDT) Anatomical Region Laterality Modality Body, Chest N/A Computed Radiogr aphy 10/02/2022 6:31 PM CDT Impressions 10/02/2022 6:31 PM CDT No active pulmonary disease. Electronically signed by: Alpesh Jaquez M.D. Narrative 10/02/2022 6:31 PM CDT EXAMINATION: XR CHEST 1 VIEW DATE: 10/02/2022 6:15 PM HISTORY: Altered mental status FINDINGS: No infiltrate, effusion or pneumothorax is present. ??Heart size, mediastinum and pulmonary vascularity are normal. Procedure Note Alpesh Jaquez MD - 10/02/2022 EXAMINATION: XR CHEST 1 VIEW DATE: 10/02/2022 6:15 PM HISTORY: Altered mental status FINDINGS: No infiltrate, effusion or pneumothorax is present. Heart size, mediastinum and pulmonary vascularity are normal. IMPRESSION: No active pulmonary disease. Electronically signed by: Alpesh Jaquez M.D. Anam PeralesJonel Ayers DO IMG XR PROCEDURES Final Result * Blood culture Blood Antecubital, right (10/02/2022 5:26 PM CDT) Report Final Report: No growth NILSA MCDONNELL Comment:Testing performed by : [facility], [address], [place]., [address] Blood (Antecubital, right) 10/02/2022 5:26 PM CDT 10/02/2022 9:17 PM CDT Narrative NILSA MCDONNELL - 10/07/2022 7:00 AM CDT From a different site [...] organism identification may be performed using the Ad Ventureigene Gram-Positive Blood Culture Assay. This assay detects microbial DNA in positive blood culture broth via hybridization of target DNA to capture oligonucleotides on a microarray. This assay has been cleared by the [place] Food and Drug Administration and its performance characteristics have been verified by the [facility]. 5. ?For questions about this culture, contact the Microbiology Laboratory at [phone]. Interpretive data was last revised on 2019. us Anam Ayers DO LAB MICROBIOLOGY - GENERAL ORD ERABLES Final Result NILSA [address] [facility] [place] [address] * (ABNORMAL) Blood culture Blood Antecubital, right (10/02/2022 5:26 PM CDT) Direct Specimen Exam Molecular Analysis: Streptococcus species detected by the Verigene Blood Culture Nucleic Acid Test. This test does not exclude the possibility of a mixed bacterial infection. Notification of: Streptococcus species called to and read back by: Zoran Baca RN [phone] on 10/03/2022 14:12:18 by: Marta Simeon DE NILSA Comment:Testing performed by : [facility], [address] [place] [address]., [id number] Direct Specimen Exam Stain: Gram Positive Cocci in pairs and chains Time to culture positivity (anaerobic media): 11.1 hours Time to culture positivity (aerobic media): 11 hours Notification of: Gram Positive Cocci in pairs and chains called to and read back by: Nelia Lee RN [phone] on 10/03/2022 08:51:39 by: Maddie ASH Comment:Testing performed by : [facility], [address] [place] [address]., [id number] Report Final Report: Streptococcus mitis group Single blood culture positive for this microorganism. ??Isolate is a possible contaminant. If a similar isolate is recovered from a second blood culture collected within 3 days of this culture, both will be evaluated and, if determined to be the same species, antimicrobial susceptibility testing will be performed. Streptococcus mitis group #2 Single blood culture positive for this microorganism. ??Isolate is a possible contaminant. If a similar isolate is recovered from a second blood culture collected within 3 days of this culture, both will be evaluated and, if determined to be the same species, antimicrobial susceptibility testing will be performed. Streptococcus mitis group #3 Single blood culture positive for this microorganism. ??Isolate is a possible contaminant. If a similar isolate is recovered from a second blood culture collected within 3 days of this culture, both will be evaluated and, if determined to be the same species, antimicrobial susceptibility testing will be performed.(.) NILSA MCDONNELL Comment:Testing performed by : [facility], [address] [place]., [address] Organism STREPTOCOCCUS MITIS GROUP CERNER Organism STREPTOCOCCUS MITIS GROUP CERNER Organism STREPTOCOCCUS MITIS GROUP CERELLEN Blood (Antecubital, right) 10/02/2022 5:26 PM CDT 10/02/2022 9:17 PM CDT Narrative [facility] - 10/06/2022 11:42 AM CDT Draw Blood cultures before administration [...] organism identification may be performed using the Ad Vent[employer]igene Gram-Positive Blood Culture Assay. This assay detects microbial DNA in positive blood culture broth via hybridization of target DNA to capture oligonucleotides on a microarray. This assay has been cleared by the [place] Food and Drug Administration and its performance characteristics have been verified by the [facility]. 5. ?For questions about this culture, contact the Microbiology Laboratory at [phone]. Interpretive data was last revised on 2019. Anam Ayers DO LAB MICROBIOLOGY - GENERAL ORD ERABLES Final Result NILSA MCDONNELL [address] [place] [address] * (ABNORMAL) Sepsis Lactate w/ Reflex (10/02/2022 5:26 PM CDT) Sepsis Lactate 2.3(H) 0.7 - 2.0 mmol/L [facility] Blood 10/02/2022 5:26 PM CDT 10/02/2022 5:32 PM CDT us Anam DiazJonel Alstonse DO LAB BLOOD ORDERABLES Final Res ult Performing Organization Address [facility]/ZIP Co de Phone Number NILSA MCDONNELL [address] [place] [address] * eGFR (10/02/2022 3:56 PM CDT) Pathologist [facility] eGFR 27 mL/min/1. 73 m2 [facility] Comment: Interpretive Data Reference Interval [...] interpretive data was last reviewed 2021. Blood 10/02/2022 3:56 PM CDT 10/02/2022 4:01 PM CDT Anam Ayers DO LAB BLOOD ORDERABLES Final Res ult Performing Organization Address [facility] Co de Phone Number NILSA MCDONNELL [address] [place] [address] * Urine culture Urine (10/02/2022 3:56 PM CDT) Report Final Report: Less than 100,000 colonies/mL (clinically insignificant growth based on current clinical standards) [facility] Comment:Testing performed by : [facility], [address] [place]., [address] Organism (CLINICALLY INSIGNIFICANT GROWTH [facility] Urine 10/02/2022 3:56 PM CDT 10/02/2022 9:16 PM CDT Narrative [facility] - 10/04/2022 7:15 AM CDT Urine culture reflexed based upon urinalysis results. Testing performed by [facility] ([phone]) Anam Ayers DO LAB MICROBIOLOGY - GENERAL ORD ERABLES Final Result Performing Organization Address [facility] Co de Phone Number NILSA MCDONNELL [address] [place] [address] * (ABNORMAL) Urinalysis, microscopic only (10/02/2022 3:56 PM CDT) WBC, ur >50(A) 0 - 5 /HPF [facility] RBC, ur 21-50(A) 0 - 2 /HPF [facility] Hyaline casts, ur 6-10 0 - 10 /LPF [facility] Culture Reflex Comment Reflex to urine culture will be performed. [facility] Urine 10/02/2022 3:56 PM CDT 10/02/2022 4:00 PM CDT us Anam PeralesJonel Alstonse DO LAB URINE ORDERABLES Final Res ult [facility] [address] [address] [place] [address] * (ABNORMAL) Differential, auto (10/02/2022 3:56 PM CDT) Neutrophil abs 7.0(H) 1.7 - 6.5 K/cumm [facility] Imm gran abs 0.0 0.0 - 0.1 K/cumm [facility] Lymphocyte abs 3.2 0.8 - 3.3 K/cumm [facility] Monocyte abs 0.7 0.2 - 0.8 K/cumm [facility] Eosinophil abs 0.2 0.0 - 0.5 K/cumm [facility] Basophil abs 0.0 0.0 - 0.1 K/cumm [facility] Neutrophil pct 62.2 % [facility] Comment: Interpretive Data Percent cell count reference ranges are not reported, since discordance with absolute values may lead to misinterpretation of CBC data. Current Interpretive Data was last revised on 2017. Imm gran pct 0.3 % [facility] Comment: Interpretive Data Percent cell count reference ranges are not reported, since discordance with absolute values may lead to misinterpretation of CBC data. Current Interpretive Data was last revised on 2017. Lymphocyte pct 28.7 % [facility] Comment: Interpretive Data Percent cell count reference ranges are not reported, since discordance with absolute values may lead to misinterpretation of CBC data. Current Interpretive Data was last revised on 2017. Monocyte pct 6.6 % [facility] Comment: Interpretive Data Percent cell count reference ranges are not reported, since discordance with absolute values may lead to misinterpretation of CBC data. Current Interpretive Data was last revised on 2017. Eosinophil pct 1.9 % [facility] Comment: Interpretive Data Percent cell count reference ranges are not reported, since discordance with absolute values may lead to misinterpretation of CBC data. Current Interpretive Data was last revised on 2017. Basophil pct 0.3 % [facility] Comment: Interpretive Data Percent cell count reference ranges are not reported, since discordance with absolute values may lead to misinterpretation of CBC data. Current Interpretive Data was last revised on 2017. Blood 10/02/2022 3:56 PM CDT 10/02/2022 4:01 PM CDT Anam Ayers DO LAB BLOOD ORDERABLES Final Res ult Performing Organization Address [facility]/ZIP Co de Phone Number NILSA MCDONNELL [address] [place] [address] * (ABNORMAL) Urinalysis reflex to microscopic and culture Urine (10/02/2022 3:56 PM CDT) Color, ur Yellow Yellow [facility] Clarity, ur Turbid(A) Clear [facility] Specific gravity, ur 1.010 1.003 - 1.030 [facility] pH, urine 6.0 [facility] Protein, ur ql 2+(A) Negative [facility] Glucose, ur ql 2+(A) Negative [facility] Ketones, ur Negative Negative [facility] Bilirubin, ur Negative Negative [facility] Blood, ur 1+(A) Negative [facility] Urobilinogen, ur <2.0 <2.0 mg/dL [facility] Nitrite, ur Negative Negative [facility] Leukocyte esterase, ur 4+(A) Negative [facility] UA reflex comment Reflex to microscopic UA will be performed. [facility] Urine 10/02/2022 3:56 PM CDT 10/02/2022 4:00 PM CDT Narrative [facility] - 10/02/2022 4:17 PM CDT ?? Urine pH is affected by diet, medications, systemic acid-base disturbances, and renal tubular function. ??pH may affect urinary stone formation. ??For example, urine pH below 6.0 may help reduce the tendency for calcium phosphate stones and pH greater than 6.0 may reduce the tendency for uric acid stone formation. Source: [employer]. Last revised 07-02-2017 Anam Ayers DO LAB MICROBIOLOGY - GENERAL ORD ERABLES Final Result Performing Organization Address [facility] Co de Phone Number NILSA MCDONNELL [address] [address] [place] [address] * (ABNORMAL) Comprehensive metabolic panel (10/02/2022 3:56 PM CDT) Sodium 144 135 - 145 mmol/L [facility] Potassium, pl 4.2 3.3 - 4.9 mmol/L [facility] Chloride 104 97 - 110 mmol/L [facility] CO2 26 22 - 32 mmol/L [facility] Anion gap 14 2 - 15 mmol/L [facility] BUN 38(H) 8 - 25 mg/dL [facility] Creatinine 1.96(H) 0.60 - 1.10 mg/dL [facility] Glucose 227(H) 70 - 199 mg/dL [facility] Comment: [...] interpretive data was last revised 2022. Calcium 9.4 8.5 - 10.3 mg/dL [facility] Bilirubin, total 0.2 0.1 - 1.2 mg/dL [facility] Protein, pl 7.5 6.5 - 8.5 g/dL [facility] Albumin 3.5 3.5 - 5.0 g/dL [facility] Alk phos 146(H) 40 - 130 Units/L [facility] ALT 12 7 - 45 Units/L [facility] AST 18 10 - 45 Units/L [facility] Blood 10/02/2022 3:56 PM CDT 10/02/2022 4:01 PM CDT us Anam Ayers DO LAB BLOOD ORDERABLES Final Res ult NILSA MCDONNELL [address] [place] [address] * (ABNORMAL) CBC with auto differential (10/02/2022 3:56 PM CDT) WBC 11.2(H) 3.8 - 9.9 K/cumm [facility] Hgb 9.2(L) 11.9 - 15.5 g/dL [facility] Hct 29.1(L) 35.6 - 45.5 % [facility] Plt 343 150 - 400 K/cumm [facility] MPV 11.3 9.1 - 12.3 fL [facility] RBC 3.08(L) 3.90 - 5.20 M/cumm [facility] MCV 94.5 81.3 - 96.4 fL [facility] MCH 29.9 27.1 - 33.3 pg [facility] MCHC 31.6(L) 32.3 - 35.7 g/dL [facility] RDW CV 15.6(H) 11.1 - 14.9 % [facility] RDW SD 53.5(H) 35.7 - 48.1 fL [facility] NRBC abs 0.00 0.00 - 0.01 K/cumm [facility] Blood 10/02/2022 3:56 PM CDT 10/02/2022 4:01 PM CDT us Anam Ayers DO LAB BLOOD ORDERABLES Final Res ult [facility] [address] [address] [place] [address] * CT Head WO Contrast (10/02/2022 3:26 PM CDT) Anatomical Region Laterality Modality Head and Neck N/A Computed Tomogra phy 10/02/2022 3:34 PM CDT Impressions 10/02/2022 3:34 PM CDT Normal study. ??No intracranial bleed or mass. Electronically signed by: Arabella Ma M.D. Narrative 10/02/2022 3:34 PM CDT EXAMINATION: CT HEAD WO CONTRAST HISTORY: The patient is a 71-year-old female who presents with altered mental status. Comparison made with the previous study dated 05/08/2022. TECHNIQUE: Axial images were obtained through the brain with thin sections and viewed both at soft tissue and bone window settings. ??Following this, coronal and sagittal reconstructions were performed. FINDINGS: Axial images through the brain reveals the 4th, 3rd and lateral ventricles to be normal in size and position. ??Cerebral sulci are not prominent. ??No intracerebral hemorrhage or extra-axial fluid collection is noted. Images obtained in the coronal and sagittal planes adds no further information. ??Axial images obtained at bone window settings reveal the cranial vault to be intact. ??Mastoid air cells and paranasal sinuses are normally aerated. Procedure Note Arabella Ma MD - 10/02/2022 EXAMINATION: CT HEAD WO CONTRAST HISTORY: The patient is a 71-year-old female who presents with altered mental status. Comparison made with the previous study dated 05/08/2022. TECHNIQUE: Axial images were obtained through the brain with thin sections and viewed both at soft tissue and bone window settings. Following this, coronal and sagittal reconstructions were performed. FINDINGS: Axial images through the brain reveals the 4th, 3rd and lateral ventricles to be normal in size and position. Cerebral sulci are not prominent. No intracerebral hemorrhage or extra-axial fluid collection is noted. Images obtained in the coronal and sagittal planes adds no further information. Axial images obtained at bone window settings reveal the cranial vault to be intact. Mastoid air cells and paranasal sinuses are normally aerated. IMPRESSION: Normal study. No intracranial bleed or mass. Electronically signed by: Arabella Ma M.D. us Anam Ayers DO IMG CT PROCEDURES Final Result * (ABNORMAL) POCT glucose (10/02/2022 1:37 PM CDT) Glucose, POC 223(H) 70 - 199 mg/dL NILSA Blood 10/02/2022 1:37 PM CDT 10/02/2022 1:37 PM CDT us Notinfile Unknown LAB POCT ORDERABLES - DEVICE F inal Result NILSA MCDONNELL [id number] [place] [address] * ECG 12 lead (10/02/2022 1:34 PM CDT) 10/02/2022 1:34 PM CDT Narrative [facility] - 10/03/2022 11:17 AM CDT Vent Rate: 83 bpm RR Interval: 716 msec VT Interval: 144 msec QRS Duration: 81 msec QT Interval: 375 msec QTC Interval: 415 msec P-R-T [place]: 51 - -17 - 40 degrees SINUS RHYTHM POSSIBLE ANTERIOR MYOCARDIAL INFARCTION , OF INDETERMINATE AGE Electronically Signed By: Ilan Ghotra MD, [facility] Anam Ayers DO ECG ORDERABLES Final Result [facility] documented in this encounter Visit Diagnoses Diagnosis Altered mental status, unspecified altered mental status type- Primary Altered mental status, unspecified altered mental status type Urinary tract infection without hematuria, site unspecified Wheezing Type 2 diabetes mellitus with diabetic neuropathy, with long-term current use of insulin ([facility]) Gastroesophageal reflux disease, unspecified whether esophagitis present Schizoaffective disorder, bipolar type ([facility]) ([facility]) Schizoaffective disorder, unspecified condition Type 2 diabetes mellitus with diabetic neuropathy, with long-term current use of insulin ([facility]) ([facility]) Hypertension associated with diabetes ([facility]) Unspecified essential hypertension Iron deficiency anemia Unspecified iron deficiency anemia GERD (gastroesophageal reflux disease) Esophageal reflux Hyperlipidemia associated with type 2 diabetes mellitus ([facility]) Dementia ([facility]) Other persistent mental disorders due to conditions classified elsewhere 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 2 diabetes mellitus ([facility]) ([facility]) Acute cystitis without hematuria Urinary tract infection without hematuria Wheezing Anemia, unspecified type Gastritis without bleeding, unspecified chronicity, unspecified gastritis type documented in this encounter Admitting Diagnoses Diagnosis Altered mental status, unspecified altered mental status type Urinary tract infection without hematuria documented in this encounter Administered Medications Inactive Administered Medications - up to 3 most recent administrations Medication Order MAR Action Action Date Dose Rate Site acetaminophen (TYLENOL) tablet 650 mg 650 mg, oral, Every 6 hours PRN, 1st line for pain, fever, headaches, Starting on Kellie 10/02/22 at 2024 Given 10/05/2022 4:51 PM CDT 650 mg Given 10/05/2022 8:03 AM CDT 650 mg Given 10/04/2022 4:02 PM CDT 650 mg apixaban (ELIQUIS) tablet 5 mg 5 mg, oral, Every 12 hours scheduled, First dose on Thu10/02/22 at 2100, Nurse to discontinue heparin infusion order and associated bolus at first administration of apixaban using 'order condition met' order source, Indications: thrombophiliaIndications:thrombophilia Given 10/06/2022 8:32 PM CDT 5 mg Given 10/06/2022 8:33 AM CDT 5 mg Given 10/05/2022 9:20 PM CDT 5 mg atorvastatin (LIPITOR) tablet 20 mg 20 mg, oral, Daily, First dose on Thu10/02/22 at 2026 Given 10/06/2022 8:33 AM CDT 20 mg Given 10/05/2022 7:48 AM CDT 20 mg Given 10/04/2022 7:48 AM CDT 20 mg benztropine (COGENTIN) tablet 1.5 mg 1.5 mg, oral, Nightly, First dose on Thu10/02/22 at 2100 Given 10/06/2022 8:32 PM CDT 1.5 mg Given 10/05/2022 9:20 PM CDT 1.5 mg Given 10/04/2022 8:14 PM CDT 1.5 mg calcium carbonate (TUMS) chewable tablet 1,000 mg 1,000 mg (400 mg of elemental calcium), oral, 3 times daily PRN, indigestion, heartburn, 1st Line, Starting on Thu10/05/22 at 0854 carvediloL (COREG) tablet 6.25 mg 6.25 mg, oral, 2 times daily with meals (bkfst, dinner), First dose on Thu10/03/22 at 0800 Given 10/06/2022 5:34 PM CDT 6.25 mg Given 10/06/2022 8:33 AM CDT 6.25 mg Given 10/05/2022 4:51 PM CDT 6.25 mg cefTRIAXone (ROCEPHIN) 1,000 mg/10 mL in sterile water (premix) 1,000 mg 1,000 mg, intravenous, at 600 mL/hr, Administer over 1 Minutes, Every 24 hours scheduled, First dose on Kellie 10/02/22 at 1712, Indications: Urinary Tract/Genitourinary InfectionIndications:Urinary Tract/Genitourinary Infection Given 10/03/2022 8:08 AM CDT 1,000 mg 6 00 mL/hr Given 10/02/2022 6:32 PM CDT 1,000 mg 600 mL/hr cefTRIAXone (ROCEPHIN) 1,000 mg/10 mL in sterile water (premix) 1,000 mg 1,000 mg, intravenous, at 600 mL/hr, Administer over 1 Minutes, Every 24 hours scheduled, First dose (after last modification) on 10/06/22 at 0900, For 1 dose, Indications: Blood Stream/Endovascular Infection, Urinary Tract/Genitourinary InfectionIndications:Blood Stream/Endovascular Infection,Urinary Tract/Genitourinary Infection Given 10/06/2022 8:33 AM CDT 1,000 mg 6 00 mL/hr cefTRIAXone (ROCEPHIN) 2,000 mg/20 mL in sterile water (premix) 2,000 mg 2,000 mg, intravenous, at 1,200 mL/hr, Administer over 1 Minutes, Every 24 hours scheduled, First dose (after last modification) on 10/04/22 at 0900, Indications: Blood Stream/Endovascular Infection, Urinary Tract/Genitourinary InfectionIndications:Blood Stream/Endovascular Infection,Urinary Tract/Genitourinary Infection Given 10/05/2022 7:50 AM CDT 2,000 mg 1 200 mL/hr Given 10/04/2022 7:49 AM CDT 2,000 mg 1200 mL/hr dextrose (D10W) 10% bolus 250 mL 250 mL, intravenous, at 1,000 mL/hr, Administer over 15 Minutes, Every 15 min PRN, blood glucose less than 70 mg/dL and UNABLE to swallow/take PO glucose/juice., Starting on Kellie 10/02/22 at 1757, After treatment for hypoglycemia, recheck BG followed [...] less than 70 mg/dL, Starting on Kellie 10/02/22 at 1757, If patient is alert and able to [...] episode of hypoglycemia., Indications: hypoglycemic disorderIndications:hypoglycemic disorder famotidine (PEPCID) tablet 10 mg 10 mg, oral, Nightly, First dose on Thu10/02/22 at 2100 Given 10/06/2022 8:31 PM CDT 10 mg Given 10/05/2022 9:20 PM CDT 10 mg Given 10/04/2022 8:15 PM CDT 10 mg glucagon injection 1 mg 1 mg, intramuscular, Every 30 min PRN, low blood sugar, blood glucose less than 70 mg/dL AND no IV access AND unable to take PO glucose/juice., Starting on Kellie 10/02/22 at 1757, After Glucagon is administered, position patient on [...] insulin glargine (LANTUS, SEMGLEE) 100 unit/mL injection 25 Units 25 Units, subcutaneous, Nightly, First dose on Thu10/02/22 at 2100, Do not mix with other insulins Given 10/06/2022 9:20 PM CDT 25 Units Left Lower Abdomen Given 10/05/2022 9:21 PM CDT 25 Units Le ft Antecubital Given 10/04/2022 8:26 PM CDT 25 Units Le ft Lower Abdomen insulin lispro (HumaLOG, ADMELOG) 100 unit/mL injection 0-10 Units 0-10 Units, subcutaneous, 3 times daily with meals, First dose (after last modification) on Thu10/05/22 at 1200, Blood Glucose Prandial Sliding Scale Insulin Dosin or less No insulin 140 - 174 2 units 175 - 199 4 units 200 - 249 6 units 250 - 299 8 units 300+ 10 units Do not hold for NPO status. For Blood Glucose >349: Call attending physician for additional hyperglycemia management instructions if needed., Indications: Diabetes MellitusIndications:Diabetes Mellitus Given 10/06/2022 5:34 PM CDT 4 Units Right Upper Arm Given 10/06/2022 12:42 PM CDT 6 Units L eft Upper Arm Given 10/05/2022 4:51 PM CDT 6 Units Le ft Lower Abdomen insulin lispro (HumaLOG, ADMELOG) 100 unit/mL injection 0-4 Units 0-4 Units, subcutaneous, Nightly, First dose on Kellie 10/02/22 at 2100, Blood glucose mg/dL: 199 or less: No insulin 200-249: add 1 unit 250-299: add 2 units 300-349: add 3 units and notify physician for adjustment of insulin orders. 350-399: add 4 units and notify physician for adjustment of insulin orders. Over 400: Notify physician for adjustment of insulin orders. Do NOT hold for NPO Status, Indications: Diabetes MellitusIndications:Diabetes Mellitus Given 10/04/2022 8:26 PM CDT 2 Units Left Lower Abdomen Given 10/03/2022 10:27 PM CDT 2 Units R ight Lower Abdomen Given 10/02/2022 9:43 PM CDT 4 Units Le ft Upper Arm insulin lispro (HumaLOG, ADMELOG) 100 unit/mL injection 0-5 Units 0-5 Units, subcutaneous, 3 times daily with meals, First dose on Kellie 10/02/22 at 1800, Blood glucose mg/dL: 149 or [...] NPO Status, Indications: Diabetes MellitusIndications:Diabetes Mellitus Given 10/05/2022 7:48 AM CDT 1 Units Left Lower Abdomen Given 10/04/2022 5:41 PM CDT 2 Units Le ft Upper Arm Given 10/04/2022 12:22 PM CDT 3 Units L eft Upper Arm insulin lispro (HumaLOG, ADMELOG) 100 unit/mL injection 0-7 Units 0-7 Units, subcutaneous, Nightly, First dose (after last modification) on Thu10/05/22 at 2100, Blood Glucose Prandial Sliding Scale Insulin Dosin or less No insulin 140 - 175 2 unit 176 - 200 3 unit 201 - 233 4 units 234 - 266 5 units 267 - 299 6 units 300+ 7 units Do not hold for NPO status. For Blood Glucose >299: Call attending physician for additional hyperglycemia management instructions if needed., Indications: Diabetes MellitusIndications:Diabetes Mellitus Given 10/06/2022 9:19 PM CDT 4 Units Left Lower Abdomen Given 10/05/2022 9:21 PM CDT 4 Units Le ft Lower Abdomen ondansetron (ZOFRAN) injection 4 mg 4 mg, intravenous, Administer over 2 Minutes, Every 4 hours PRN, nausea, vomiting, 1st Line, Starting on Thu10/05/22 at 0853, Indications: Nausea and VomitingIndications:Nausea and Vomiting polyethylene glycol (MIRALAX) packet 17 g 17 g, oral, Daily, First dose on Thu10/02/22 at 2027 Given 10/05/2022 7:49 AM CDT 17 g Given 10/04/2022 7:48 AM CDT 17 g Given 10/03/2022 8:04 AM CDT 17 g polyethylene glycol (MIRALAX) packet 17 g 17 g, oral, Daily PRN, constipation, 1st Line, Starting on Thu10/05/22 at 1745 pregabalin (LYRICA) capsule 150 mg 150 mg, oral, Nightly, First dose on Thu10/02/22 at 2100 Given 10/06/2022 8:32 PM CDT 150 mg Given 10/05/2022 9:20 PM CDT 150 mg Given 10/04/2022 8:14 PM CDT 150 mg ramelteon (ROZEREM) tablet 8 mg 8 mg, oral, Nightly PRN, sleep, 1st Line, Starting on 10/05/22 at 0854, Indications: Sleep-Onset InsomniaIndications:Sleep-Onset Insomnia risperiDONE (RisperDAL) tablet 2 mg 2 mg, oral, Nightly, First dose on Thu10/02/22 at 2100 Given 10/06/2022 8:32 PM CDT 2 mg Given 10/05/2022 9:20 PM CDT 2 mg Given 10/04/2022 8:14 PM CDT 2 mg sodium chloride 0.9% 0.9% infusion - ADS Override Pull Starting on Thu10/02/22 at 1816, For 1 dose, Created by cabinet override sodium chloride 0.9% bolus 1,000 mL 1,000 mL, intravenous, at 1,000 mL/hr, Administer over 1 Hours, Once, On Thu10/02/22 at 1755, For 1 dose New Bag 10/02/2022 6:32 PM CDT 1,000 mL 1000 mL/hr sodium chloride 0.9% infusion 125 mL/hr, intravenous, Continuous, Starting on Thu10/02/22 at 1755 Rate/Dose Verify 10/03/2022 4:50 AM CDT 125 mL/hr 125 mL/hr New Bag 10/02/2022 6:32 PM CDT 125 mL/hr 125 mL/hr documented in this encounter Discontinued Medications Medication Sig Discontinue Reason Start Date End Da te risperiDONE (RisperDAL) 2 mg tablet Take 1 tablet (2 mg total) by mouth nightly 08/07/2021 10/06/2022 polyethylene glycol (MIRALAX) 17 gram packet Take 1 packet (17 g total) by mouth daily Reorder 08/14/2021 10/06/2022 albuterol HFA (ProAir HFA) 90 mcg/actuation inhalerIndications:Whe ezing Inhale 2 puffs every 4 (four) hours as needed for wheezing or shortness of breath 09/25/2021 10/06/2022 furosemide (LASIX) 40 mg tablet Take 1 tablet (40 mg total) by mouth 2 (two) times a day Reorder 10/16/2021 10/06/2022 insulin lispro (HumaLOG, ADMELOG) 100 unit/mL pen for injection Inject 12 Units under the skin 3 (three) times a day with meals Reorder 04/02/2022 10/06/2022 dulaglutide (TRULICITY) 1.5 mg/0.5 mL pen injectorIndications:Ty pe 2 diabetes mellitus with diabetic neuropathy, with long-term current use of insulin (HCC) Inject 0.5 mL (1.5 mg total) under the skin every 7 days Reorder 07/30/2022 10/06/2022 carvediloL (COREG) 6.25 mg tablet Take 1 tablet (6.25 mg total) by mouth 2 (two) times a day with meals 08/07/2022 10/06/2022 ferrous sulfate 325 mg (65 mg of elemental iron) tabletIndications:Anem ia due to chronic kidney disease, unspecified CKD stage Take 1 tablet (325 mg total) by mouth daily with breakfast Stop Taking at Discharge 07/30/2022 10/06/2022 documented as of this encounter Active and Recently Administered Medications Times are shown in CDT. Scheduled Medication Order 10/04/2022 10/05/2022 10/06/2022 apixaban (ELIQUIS) tablet 5 mg 5 mg, oral, Every 12 hours scheduled, First dose on Kellie 10/02/22 at 2100, Nurse to discontinue heparin infusion order and associated bolus at first administration of apixaban using 'order condition met' order source, Indications: thrombophilia 0800 (Given - Provider: Myah Griffin)2013 (Given - Provider: Zoie Luis RN) 0748 (Given - Provider: Lulú Orourke, ALIREZA)2119 (Given - Provider: Zoie Luis RN) 0833 (Given - Provider: Martha Lu, ALIREZA)2031 (Given - Provider: Tena Castaneda RN) atorvastatin (LIPITOR) tablet 20 mg 20 mg, oral, Daily, First dose on Kellie 10/02/22 at 2026 0748 (Given - Provider: Myah Griffin) 0748 (Given - Provider: Lulú Orourke, ALIREZA) 0833 (Given - Provider: Martha Lu RN) benztropine (COGENTIN) tablet 1.5 mg 1.5 mg, oral, Nightly, First dose on Kellie 10/02/22 at 2100 0102 (Given - Provider: Tahmina Esteves RN)2013 (Given - Provider: Zoie Luis, ALIREZA) 2119 (Given - Provider: Zoie Luis RN) 2031 (Given - Provider: Tena Castaneda, ALIREZA) carvediloL (COREG) tablet 6.25 mg 6.25 mg, oral, 2 times daily with meals (bkfst, dinner), First dose on Thu10/03/22 at 0800 0748 (Given - Provider: Myah Griffin)1602 (Given - Provider: Myah Griffin) 0748 (Given - Provider: Lulú Orourke, ALIREZA)1651 (Given - Provider: Lulú Orourke, ALIREZA) 0833 (Given - Provider: Martha Lu, ALIREZA)1734 (Given - Provider: Martha Lu, ALIREZA) cefTRIAXone (ROCEPHIN) 1,000 mg/10 mL in sterile water (premix) 1,000 mg (COMPLETED) 1,000 mg, intravenous, at 600 mL/hr, Administer over 1 Minutes, Every 24 hours scheduled, First dose (after last modification) on Thu10/06/22 at 0900, For 1 dose, Indications: Blood Stream/Endovascular Infection, Urinary Tract/Genitourinary Infection 0833 (Given - Provider: Martha Lu, ALIREZA) cefTRIAXone (ROCEPHIN) 2,000 mg/20 mL in sterile water (premix) 2,000 mg (CANCELED) 2,000 mg, intravenous, at 1,200 mL/hr, Administer over 1 Minutes, Every 24 hours scheduled, First dose (after last modification) on Thu10/04/22 at 0900, Indications: Blood Stream/Endovascular Infection, Urinary Tract/Genitourinary Infection 0749 (Given - Provider: Myah Griffin) 0750 (Given - Provider: Lulú Orourke, ALIREZA) famotidine (PEPCID) tablet 10 mg 10 mg, oral, Nightly, First dose on Thu10/02/22 at 2100 2014 (Given - Provider: Zoie Luis RN) 2119 (Given - Provider: Zoie Luis RN) 2030 (Given - Provider: Tena Castaneda, ALIREZA) insulin glargine (LANTUS, SEMGLEE) 100 unit/mL injection 25 Units 25 Units, subcutaneous, Nightly, First dose on [facility] 10/02/22 at 2100, Do not mix with other insulins 2025 (Given - Provider: Zoie Luis RN) 2120 (Given - Provider: Zoie Luis RN) 2119 (Given - Provider: Tena Castaneda RN) insulin lispro (HumaLOG, ADMELOG) 100 unit/mL injection 0-10 Units 0-10 Units, subcutaneous, 3 times daily with meals, First dose (after last modification) on Thu10/05/22 at 1200, Blood Glucose Prandial Sliding Scale Insulin Dosin or less No insulin 140 - 174 2 units 175 - 199 4 units 200 - 249 6 units 250 - 299 8 units 300+ 10 units Do not hold for NPO status. For Blood Glucose >349: Call attending physician for additional hyperglycemia management instructions if needed., Indications: Diabetes Mellitus 1249 (Given - Provider: Lulú Orourke RN)1651 (Given - Provider: Lulú Orourke RN) 0744 (Not Given - Provider: Martha Lu, ALIREZA - Reason: Order parameters not met)1242 (Given - Provider: Martha Lu, ALIREZA)1734 (Given - Provider: Martha Lu, ALIREZA) insulin lispro (HumaLOG, ADMELOG) 100 unit/mL injection 0-4 Units (CANCELED) 0-4 Units, subcutaneous, Nightly, First dose on [facility] 10/02/22 at 2100, Blood glucose mg/dL: 199 or less: No insulin 200-249: add 1 unit 250-299: add 2 units 300-349: add 3 units and notify physician for adjustment of insulin orders. 350-399: add 4 units and notify physician for adjustment of insulin orders. Over 400: Notify physician for adjustment of insulin orders. Do NOT hold for NPO Status, Indications: Diabetes Mellitus 2025 (Given - Provider: Zoie Luis RN) insulin lispro (HumaLOG, ADMELOG) 100 unit/mL injection 0-5 Units (CANCELED) 0-5 Units, subcutaneous, 3 times daily with meals, First dose on [facility] 10/02/22 at 1800, Blood glucose mg/dL: 149 or [...] hold for NPO Status, Indications: Diabetes Mellitus 0748 (Given - Provider: Myah Griffin)1222 (Given - Provider: Myah Griffin)1741 (Given - Provider: Myah Griffin) 0748 (Given - Provider: Lulú Orourke, ALIREZA) insulin lispro (HumaLOG, ADMELOG) 100 unit/mL injection 0-7 Units 0-7 Units, subcutaneous, Nightly, First dose (after last modification) on Thu10/05/22 at 2099, Blood Glucose Prandial Sliding Scale Insulin Dosin or less No insulin 140 - 175 2 unit 176 - 200 3 unit 201 - 233 4 units 234 - 266 5 units 267 - 299 6 units 300+ 7 units Do not hold for NPO status. For Blood Glucose >299: Call attending physician for additional hyperglycemia management instructions if needed., Indications: Diabetes Mellitus 2120 (Given - Provider: Zoie Luis RN) 2118 (Given - Provider: Tena Castaneda, ALIRZEA) polyethylene glycol (MIRALAX) packet 17 g (CANCELED) 17 g, oral, Daily, First dose on Thu10/02/22 at 2026 0748 (Given - Provider: Myah Griffin) 0749 (Given - Provider: Lulú Orourke, ALIREZA) pregabalin (LYRICA) capsule 150 mg 150 mg, oral, Nightly, First dose on Kellie 10/02/22 at 2099 2013 (Given - Provider: Zoie Luis, ALIREZA) 2119 (Given - Provider: Zoie Luis RN) 2031 (Given - Provider: Tena Castaneda, ALIREZA) risperiDONE (RisperDAL) tablet 2 mg 2 mg, oral, Nightly, First dose on Thu10/02/22 at 2099 2013 (Given - Provider: Zoie Luis RN) 2119 (Given - Provider: Zoie Luis RN) 2031 (Given - Provider: Tena Castaneda RN) PRN Medication Order 10/04/2022 10/05/2022 10/06/2022 acetaminophen (TYLENOL) tablet 650 mg 650 mg, oral, Every 6 hours PRN, 1st line for pain, fever, headaches, Starting on Kellie 10/02/22 at 2024 1602 (Given - Provider: Myah Griffin) 0803 (Given - Provider: Lulú Orourke RN)1651 (Given - Provider: Lulú Orourke RN)1656 (Not Given - Provider: Lulú Orourke RN - Reason: Other - Comment: recently given) calcium carbonate (TUMS) chewable tablet 1,000 mg 1,000 mg (400 mg of elemental calcium), oral, 3 times daily PRN, indigestion, heartburn, 1st Line, Starting on Donie 10/05/22 at 0854 dextrose (D10W) 10% bolus 250 mL(Linked Group 1) 250 mL, intravenous, at 1,000 mL/hr, Administer over 15 Minutes, Every 15 min PRN, blood glucose less than 70 mg/dL and UNABLE to swallow/take PO glucose/juice., Starting on [facility] 10/02/22 at 1757, After treatment for hypoglycemia, recheck BG followed [...] less than 70 mg/dL, Starting on Kellie 10/02/22 at 1757, If patient is alert and able to [...] to take PO glucose/juice., Starting on Kellie 10/02/22 at 1757, After Glucagon is administered, position patient on [...] over 2 Minutes, Every 4 hours PRN, nausea, vomiting, 1st Line, Starting on Donie 10/05/22 at 0853, Indications: Nausea and Vomiting polyethylene glycol (MIRALAX) packet 17 g 17 g, oral, Daily PRN, constipation, 1st Line, Starting on Donie 10/05/22 at 1745 ramelteon (ROZEREM) tablet 8 mg 8 mg, oral, Nightly PRN, sleep, 1st Line, Starting on Donie 10/05/22 at 0854, Indications: Sleep-Onset Insomnia Linked Groups Order Group 1: dextrose oral liquid liquid 15 gJump to med 15 g, oral, Every 15 min PRN, low blood sugar, blood glucose less than 70 mg/dL, Starting on [facility] 10/02/22 at 1757, If patient is alert and able to [...] UNABLE to swallow/take PO glucose/juice., Starting on [facility] 10/02/22 at 1757, After treatment for hypoglycemia, recheck BG followed by treatment every 15 minutes until the BG is greater than 100 mg/dL. Then check BG 1 hour post treatment. If BG is less than 100 mg/dL, repeat Q15 minute BG checks and treatment. Call MD for each episode of hypoglycemia., Indications: hypoglycemic disorder Group 2: ondansetron (ZOFRAN) injection 4 mgJump to med 4 mg, intravenous, Administer over 2 Minutes, Every 4 hours PRN, nausea, vomiting, 1st Line, Starting on 10/05/22 at 0853, Indications: Nausea and Vomiting documented in this encounter Orders Medications Ordered That Flip ht Not Have Been Administered Count Last Ordered Date First Ordered Date calcium carbonate (TUMS) antonio wable tablet 1,000 mg 1 10/05/2022 ondansetron (ZOFRAN) injection 4 mg 2 10/0510/02/2022 polyethylene glycol (MIRALAX) packet 17 g 1 10/05/2022 ramelteon (ROZEREM) tablet 8 mg 1 acetaminophen (TYLENOL) tablet 650 mg 1 albuterol HFA (PROVENTIL HFA ,VENTOLIN HFA,PROAIR HFA) 90 mcg/actuation inhaler 2 puff 1 10/02/2022 dextrose (D10W) 10% bolus 250 mL 10/03/19 dextrose oral liquid liquid 15 g 1 10/03/19 glucagon injection 1 mg 1 10/02/2022 insulin lispro (HumaLOG, ADM ELOG) 100 unit/mL injection 12 Units 1 10/02/2022 ondansetron ODT (ZOFRAN-ODT) disintegrating tablet 4 mg 1 10/02/2022 Lab Orders Without Results Count Last Ordered D ate First Ordered Date POCT GLUCOSE DEVICE 18 10/06/2022 10/03/19 Diet Count Last Ordered Date First Orde red Date ADULT DISCHARGE DIET 1 10/06/2022 Nursing Count Last Ordered Date First Orde red Date DISCHARGE ACTIVITY 1 10/06/2022 DISCHARGE CALL PROVIDER 8 10/06/2022 DISCHARGE INSTRUCTIONS 1 10/06/2022 FOLLOW UP WITH ESTABLISHED PROVIDER 1 10/06 CONTINUOUS PULSE OXIMETRY 1 10/02/2022 MISCELLANEOUS NURSING CARE ORDER (SPECIFY) 2 10/02/2022 NOTIFY PROVIDER (SPECIFY) 4 10/02/2022 PULSE OXIMETRY - RN 1 10/02/2022 WEIGH PATIENT 1 10/02/2022 IV Count Last Ordered Date First Orde red Date SALINE LOCK IV 1 10/02/2022 Admission Count Last Ordered Date First Orde red Date ADMIT TO INPATIENT 1 10/02/2022 Discharge Count Last Ordered Date First Orde red Date DISCHARGE PATIENT 1 10/06/2022 CORE MEASURES Count Last Ordered Date First Ord ered Date REASON FOR NO VTE PROPHYLAXIS AT ADMISSION 1 10/02/2022 documented in this encounter Additional Health Concerns Infection Onset Date Last Indicated Resolved Time COVID: Suspected 10/02/2022 10/02/2022 10/02/2022 8:14 PM CDT documented as of this encounter Care Teams Cheese 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
--- OUTSIDE RECORDS SUMMARY | 2024-07-04 04:11 | XMS_ITS | Encounter Summary ---
Author Organization [facility] Healthcare Address [address] [place] [address] Care Team Providers Care Production Crew Supervisor Name Role Phone Cherelle Corcoran MD Primary Care Pro vider Mark Queen MD Unavailable [phone] Anam Costa LCSW Unavailable Unavailabl e Melania Lee RN Unavailable [phone] Encounter Details Date Type Department Care Team (Late st Contact Info) Description 10/10/2022 11:25 AM CDT Lab [facility] Building [address] [id number] Anemia in stage 3b chronic kidney disease (HCC); Stage 3b chronic kidney disease (HCC); Diabetic nephropathy (CMS/HCC) (HCC) Social History Tobacco Use Types [...] slept in a fci (including now)? No 10/03/2022 Comments No Sex and Gender Information Value Date Recorded Sex Assigned at Not on file Legal Sex Female 9:03 AM SOFTWARE TOOLS DEVELOPER Gender Identity Female 02/08/2020 6:39 PM CDT Sexual Orientation Not on file documented as of this encounter Plan of Treatment Upcoming Encounters Date Type Department Care Team (Latest Contact Info) Description 07/13/2024 9:00 AM SOFTWARE TOOLS DEVELOPER Hospital Encounter [facility] [address] [place] [address] Jaya Grier MD [address] [facility] [address] GAINES [address] [place] [address] 07/13/2024 9:00 AM SOFTWARE TOOLS DEVELOPER - 07/13/2024 9:30 AM SOFTWARE TOOLS DEVELOPER Surgery [facility] [address] [place] [address] Jaya Grier MD [address] [facility] [address] [place] [address] ESOPHAGOGASTRODUODENOSCOPY Scheduled Procedures Name Priority Associated Diagnoses Date/Ti me ESOPHAGOGASTRODUODENOSCOPY Anemia, unspecified type Gastritis without bleeding, unspecified chronicity, unspecified gastritis type 07/13/2024 9:00 AM SOFTWARE TOOLS DEVELOPER COLONOSCOPY Iron deficiency anemia due to chronic blood loss documented as of this encounter Procedures Procedure Name Priority Date/Time Associated Diagnosis Comments EGFR Routine 10/10/2022 11:39 AM CDT Stage 3b chronic kidney disease (HCC) DIFFERENTIAL AUTO Routine 10/10/2022 11: 39 AM CDT Anemia in stage 3b chronic kidney disease (HCC) IRON PROFILE W/ IBC Routine 10/10/2022 1 1:39 AM CDT Anemia in stage 3b chronic kidney disease (HCC) CBC WITH AUTO DIFFERENTIAL Routine 10/10/2022 11:39 AM CDT Anemia in stage 3b chronic kidney disease (HCC) ALBUMIN CREATININE RATIO, URINE Routine 10/10/2022 11:39 AM CDT Diabetic nephropathy (CMS/HCC) (HCC) PTH Routine 10/10/2022 11:39 AM CDT Stage 3b chronic kidney disease (HCC) VITAMIN B12 Routine 10/10/2022 11:39 AM CDT Anemia in stage 3b chronic kidney disease (HCC) COMPREHENSIVE METABOLIC PANEL Routine 10/10/2022 11:39 AM CDT Stage 3b chronic kidney disease (HCC) documented in this encounter Results * eGFR (10/10/2022 11:39 AM CDT) [facility] eGFR 30 mL/min/1. 73 m2 NILSA RODRIGES Comment: Interpretive [...] was last reviewed 2021. Testing performed by: [facility], [address] [place] [address]., [address] Blood 10/10/2022 11:3 9 AM CDT 10/10/2022 1:44 PM CDT us Markie Ryan MD LAB BLOOD ORDERABLES Final Re sult NILSA [address] [facility] Department [place] [address] * (ABNORMAL) Differential, auto (10/10/2022 11:39 AM CDT) Neutrophil abs 6.7(H) 1.7 - 6.5 K/cumm NILSA Comment:Testing performed by : [address] [address] Imm gran abs 0.0 0.0 - 0.1 K/cumm NILSA Comment:Testing performed by : [address] [address] Lymphocyte abs 2.2 0.8 - 3.3 K/cumm NILSA Comment:Testing performed by : [address] [address] Monocyte abs 0.6 0.2 - 0.8 K/cumm NILSA Comment:Testing performed by : [address] [address] Eosinophil abs 0.2 0.0 - 0.5 K/cumm NILSA Comment:Testing performed by : [address] [address] Basophil abs 0.0 0.0 - 0.1 K/cumm NILSA Comment:Testing performed by : [address] [address] Neutrophil pct 69.0 % NILSA Comment: Interpretive Data Percent cell count reference ranges are not reported, since discordance with absolute values may lead to misinterpretation of CBC data. Current Interpretive Data was last revised on 2017. Testing performed by: [address] [address] Imm gran pct 0.3 % NILSA Comment: Interpretive Data Percent cell count reference ranges are not reported, since discordance with absolute values may lead to misinterpretation of CBC data. Current Interpretive Data was last revised on 2017. Testing performed by: [address] [address] Lymphocyte pct 22.4 % NILSA Comment: Interpretive Data Percent cell count reference ranges are not reported, since discordance with absolute values may lead to misinterpretation of CBC data. Current Interpretive Data was last revised on 2017. Testing performed by: [address] [address] Monocyte pct 6.1 % NILSA Comment: Interpretive Data Percent cell count reference ranges are not reported, since discordance with absolute values may lead to misinterpretation of CBC data. Current Interpretive Data was last revised on 2017. Testing performed by: [address] [address] Eosinophil pct 1.8 % NILSA Comment: Interpretive Data Percent cell count reference ranges are not reported, since discordance with absolute values may lead to misinterpretation of CBC data. Current Interpretive Data was last revised on 2017. Testing performed by: [address] [address] Basophil pct 0.4 % NILSA Comment: Interpretive Data Percent cell count reference ranges are not reported, since discordance with absolute values may lead to misinterpretation of CBC data. Current Interpretive Data was last revised on 2017. Testing performed by: [address] [address] Blood 10/10/2022 11:3 9 AM CDT 10/10/2022 1:44 PM CDT us Markie Ryan MD LAB BLOOD ORDERABLES Final Re sult NILSA RODRIGES [address] [facility] Department [place] [address] * (ABNORMAL) Albumin Creatinine Ratio, Urine (10/10/2022 11:39 AM CDT) Albumin Ur 3,240.2 mg/L NILSA RODRIGES Comment: Interpretive Data No reference range established. Current interpretive data was last revised 2018. Testing performed by: [address] [address] Creatinine Ur 74.8 mg/dL NILSA RODRIGES Comment: Interpretive Data No reference range established. Current interpretive data was last revised 2018. Testing performed by: [address] [address] Albumin Creatinine Ratio, Ur 4,332(H) 1 - 29 mg/g NILSA RODRIGES Comment:Testing performed by : [address] [address] Urine 10/10/2022 11:3 9 AM CDT 10/10/2022 1:45 PM CDT us Markie Ryan MD LAB URINE ORDERABLES Final Re sult NILSA [facility] Department [place] [address] * (ABNORMAL) Comprehensive metabolic panel (10/10/2022 11:39 AM CDT) Sodium 148(H) 135 - 145 mmol/L NILSA RODRIGES Comment:Testing performed by : [address] [address] Potassium, pl 4.4 3.3 - 4.9 mmol/L NILSA RODRIGES Comment:Testing performed by : [address] [address] Chloride 110 97 - 110 mmol/L NILSA Comment:Testing performed by : [address] [address] CO2 27 22 - 32 mmol/L NILSA RODRIGES Comment:Testing performed by : [address] [address] Anion gap 11 2 - 15 mmol/L NILSA RODRIGES Comment:Testing performed by : [address] [address] BUN 30(H) 8 - 25 mg/dL NILSA RODRIGES Comment:Testing performed by : [address] [address] Creatinine 1.80(H) 0.60 - 1.10 mg/dL NILSA Comment:Testing performed by : [address] [address] Glucose 166 70 - 199 mg/dL NILSA Comment: Interpretive [...] was last revised 2022. Testing performed by: [address] [address] Calcium 9.9 8.5 - 10.3 mg/dL NILSA Comment:Testing performed by : [address] [address] Bilirubin, total 0.2 0.1 - 1.2 mg/dL NILSA Comment:Testing performed by : [address] [address] Protein, pl 7.8 6.5 - 8.5 g/dL NILSA Comment:Testing performed by : [address] [address] Albumin 3.5 3.5 - 5.0 g/dL NILSA Comment:Testing performed by : [address] [address] Alk phos 116 40 - 130 Units/L NILSA Comment:Testing performed by : [address] [address] ALT 7 7 - 45 Units/L NILSA Comment:Testing performed by : [address] [address] AST 18 10 - 45 Units/L NILSA Comment:Testing performed by : [address] [address] Blood 10/10/2022 11:3 9 AM CDT 10/10/2022 1:44 PM CDT Markie Ryan MD LAB BLOOD ORDERABLES Final Re sult Performing Organization Address City/[facility]/ZIP Co de Phone Number CARLOS ENRIQUE[address] [place] [address] * PTH (10/10/2022 11:39 AM CDT) PTH 39 15 - 65 pg/mL NILSA Comment:Testing performed by : [address] [address] Blood 10/10/2022 11:3 9 AM CDT 10/10/2022 1:44 PM CDT Markie Ryan MD LAB BLOOD ORDERABLES Final Re sult Performing Organization Address [facility] Co de Phone Number [address] [place] [address] * Vitamin B12 (10/10/2022 11:39 AM CDT) Vitamin B12 749 230 - 1,250 pg/mL NILSA Comment:Testing performed by : [address] [address] Blood 10/10/2022 11:3 9 AM CDT 10/10/2022 1:44 PM CDT Markie Ryan MD LAB BLOOD ORDERABLES Final Re sult Performing Organization Address City/[facility]/ZIP Co de Phone Number [address] [place] [address] * (ABNORMAL) Iron profile w/ IBC (10/10/2022 11:39 AM CDT) Iron 60 35 - 145 mcg/dL NILSA Comment:Testing performed by : [address] [address] TIBC 246(L) 250 - 400 mcg/dL NILSA Comment:Testing performed by : [address] [address] Transferrin saturation 24 20 - 50 % NILSA Comment:Testing performed by : [address] [address] Blood 10/10/2022 11:3 9 AM CDT 10/10/2022 1:44 PM CDT us Markie Ryan MD LAB BLOOD ORDERABLES Final Re sult NILSA [address] [facility] Department [place] [address] * (ABNORMAL) CBC with auto differential (10/10/2022 11:39 AM CDT) WBC 9.7 3.8 - 9.9 K/cumm NILSA RODRIGES Comment:Testing performed by : [address] [address] Hgb 8.9(L) 11.9 - 15.5 g/dL NILSA RODRIGES Comment:Testing performed by : [address] [address] Hct 29.0(L) 35.6 - 45.5 % NILSA RODRIGES Comment:Testing performed by : [address] [address] Plt 319 150 - 400 K/cumm NILSA RODRIGES Comment:Testing performed by : [address] [address] MPV 11.1 9.1 - 12.3 fL NILSA RODRIGES Comment:Testing performed by : [address] [address] RBC 3.00(L) 3.90 - 5.20 M/cumm NILSA RODRIGES Comment:Testing performed by : [address] [address] MCV 96.7(H) 81.3 - 96.4 fL NILSA RODRIGES Comment:Testing performed by : [address] [address] MCH 29.7 27.1 - 33.3 pg NILSA RODRIGES Comment:Testing performed by : [address] [address] MCHC 30.7(L) 32.3 - 35.7 g/dL NILSA RODRIGES Comment:Testing performed by : [address] [address] RDW CV 16.1(H) 11.1 - 14.9 % NILSA RODRIGES Comment:Testing performed by : [address] [address] RDW SD 57.1(H) 35.7 - 48.1 fL NILSA RODRIGES Comment:Testing performed by : [address] [address] NRBC abs 0.00 0.00 - 0.01 K/cumm NILSA RODRIGES Comment:Testing performed by : [address] [address] Blood 10/10/2022 11:3 9 AM CDT 10/10/2022 1:44 PM CDT us Markie Ryan MD LAB BLOOD ORDERABLES Final Re sult NILSA [facility] Department [place] [address] documented in this encounter Visit Diagnoses Diagnosis Anemia in stage 3b chronic kidney disease (HCC) Stage 3b chronic kidney disease (HCC) Diabetic nephropathy (CMS/HCC) (HCC) Type II or unspecified type diabetes mellitus with renal manifestations, not stated as uncontrolled Anemia, unspecified type Gastritis without bleeding, unspecified chronicity, unspecified gastritis type documented in this encounter Care Teams Production Crew Supervisor Relationship Specialty Start Date End Date Cherelle Corcoran MD PCP - General Family Medicine 08/30/19 Mark Queen MD Consulting Physician Infectious Diseases 01/10/20 Anam Costa LCSW Airport Duty Manager 08/08/22 02/18/23 Jesus, Melania Joel RN [address] [place] [address] DR GA[address] [place] [id number] Entry Level Account Executive 08/22/22 12/07/22 documented as of this encounter
--- OUTSIDE RECORDS SUMMARY | 2024-07-04 04:11 | XMS_ITS | Encounter Summary ---
Author Organization [facility] Healthcare Address [address] [place] [address] Care Team Providers Care Mechanic Senior Name Role Phone Cherelle Corcoran MD Primary Care Pro vider Mark Queen MD Unavailable [phone] Anam CostaW Unavailable UnavailMelania Rae RN Unavailable [phone] Reason for Visit * Reason Comments OT Treatment Encounter Details Date Type Department Care Team (Late st Contact Info) Description 10/27/2022 8:00 AM CDT Therapy [facility] OP Occup Therapy [address] [place] [address] Jerel Cardenas, MOE Parkinsonism, unspecified Parkinsonism type [...] slept in a halfway (including now)? No 10/03/2022 Comments No Sex and Gender Information Value Date Recorded Sex Assigned at Not on file Legal Sex Female 9:03 AM SENIOR INVESTIGATOR Gender Identity Female 02/08/2020 6:39 PM CDT Sexual Orientation Not on file documented as of this encounter Progress Notes * Jerel Cardenas, OT - 10/27/2022 8:00 AM CDT Images from the original note were not included. OCCUPATIONAL THERAPY LSVT BIG EVALUATION RE CERTIFICATION 10/27/2022 Time In: 08 Time Out: 0900 Total minutes: 50 MINUTES Barbara Chakraborty 1950 71 y.o. ICD-9-CM ICD-10-CM 1. Parkinsonism, unspecified Parkinsonism [...] ADL/IADL performance/participatoin within the home and community. SUBJECTIVE Patient report of: initial symptoms: resting [...] past Prior therapy for same diagnosis: no 10/27/2022: Con't LB pain reported, tylenol taken AM. Pt reports 0/10 pain on this date. Hand dominance: RIGHT Arm reported as affected: [...] of food using right hand related to tremors. 10/27/2022: Con't difficulty Oral Care/Grooming: family brushes dentures and assist with getting in her mouth (family assist) 10/27/2022: Con't difficulty Bathing and Dressing: Patient is unable to get into the shower related to great toe wound on R foot; family assist with getting dressed (bird baths because of the toe) 10/27/2022: Con't difficulty Toileting: no equipment around toilet; patient uses toilet with w/w and uses sink for support; can get your clothes up/down 75% of the time and requires assistance to pull pants up fully 10/27/2022: Con't difficulty Bed/Car/Toilet Transfers: has bed rail and requires moderate assistance to get OOB to sit on EOB; getting in/out of car moderate assist with assist for lifting legs into truck [facility] Meal Preparation: Family assist with snacks and [...] Patient goal: I need to get stronger. 10/27/2022: To move better. aregiver goal: I'd like her toget stronger and be able to feed herself better. 10/27/2022: To have complete mobility. FUNCTIONAL TASK RECORDING FORM: NOT DIFFICULT MINIMALLY DIFFICULT SOMEWHAT DIFFICULT MODERATELY DIFFICULT VERY DIFFICULT EXTREMELY DIFFICULT UNABLE Bed mobility/supine to sit to eob using rail 2. Standing from a chair 3. handwriting 4. Getting in/out of a car 5. Feeding self (needs a/e training) 6. Getting in/out of a car OBJECTIVE MEASUREMENT: 5 Sit to stand time: 45 seconds (15 seconds for 1 sit to stand from armed chair initial eval) TUG time: Trial 1: 45 seconds (45 seconds initial) TUG Cognitive: N/T WATERS: N/T/56 Upper Extremity AROM/PROM/Strength: Tightness noted in both shoulders with pain reported in left side of trunk with LUE overhead AROM. RUE: shoulder flexion (115/125)90/125/3-/5, elbow flexion/extension WFL/4-/5, wrist flexion WFL, extension ~45 degrees/3-/5 strength, finger AROM functional with full serial opposition with minimal difficulty with full, active composite fist with tightness noted. LUE: shoulder flexion (110/115) 90/110/3-/5, shoulder abduction 115-/5, elbow flexion/ext WFL/4-/5,wrist flexion WFL, extension ~45, finger AROM functional with full serial opposition with minimal difficulty with full, active composite fist with tightness noted. Torch Heater strength: 20# (19.5# initial) Left: 17# (14# initial) 9-Hole Peg Test: Right: 75/73 seconds Left: 104/84 seconds Timed ADL task: completed signing name twice in 56 seconds (30 initial) Mobility/Transfer status: minimal safety/verbal cues required for walker safety/management, required assist to keep walker from veering when in waiting room Cognitive Status: impaired memory but able to follow all commands and participated fully MiniBESTest: N/T Short Blessed Test of Memory: 0-4 = Normal, 5-9 = Questionable Impairment, 10+ = Impairment consistent with Dementia Initial reported above for SBT FUNCTIONAL COMPONENTS IDENTIFIED: Functional Component Movements Cues Assist Sit to stand Supine to sit to eob 3. Self-feeding 4. handwriting 5. Getting up from a chair HIERARCHIES IDENTIFIED: Hierarchies Cues Assist Walking through congested area with w/w Getting in/out of a car Carrying an item with w/w TREATMENT/EDUCATION PROVIDED: Patient seen for 50 minute re-evaluation r/t pt late arrival. Reviewed medical and therapy history with the daugher/patient. Objective measurements taken as noted above. All precautions reviewed withpatient/daughter with patient verbalizing desire to proceed with LSVT BIG program. Developed plan of care and goals with patient/daughter with agreement to proceed verbalized. Recommended 1- 2x/week and progress as tolerated with frequency [...] 4-6 reps each. (Progressing- needs increased cues) 4. Pt to complete seated dynamic reaching balance activity x high/low x BUE with mod vc's for correct sequencing. 5. Pt to demo ability to transfer in/out of shower tub x 3 trials with AE PRN to demo increased functional transfer skills. LTGS to be met by 10/28/22 1. [...] managing walker. PLAN: Frequency/duration: Skilled Occupational Therapy 1-2 times per week for 8-10 weeks. Occupational Therapy treatment plan to include the following interventions: ADL TRAINING, ADAPTIVE EQUIPMENT TRAINING, DME EDUCATION, PATIENT EDUCATION, IADL TRAINING, HANDWRITING , SAFETY EDUCATION, UE AAROM, UE AROM, UE PROM, UE STRENGTHENING, UE HOME EXERCISE PROGRAMS, FMC , GMC, NEURO-MUSCULAR RE- EDUCATION, THERAPEUTIC ACTIVITIES, BALANCE TRAINING, MODALITIES, FLUIDOTHERAPY, and FUNCTIONAL MOBILITY TRAINING Other Treatment: LSVT BIG exercises/treatment Jerel Cardenas OTR/L [facility] [email or web address] If you are unable to electronically sign this document, please print out, sign and fax to to certify this plan of care/treatment plan. Thank you! Provider Signature: Date: documented in this encounter Plan of Treatment Upcoming Encounters Date Type Department Care Team (Latest Contact Info) Description 07/13/2024 9:00 AM SENIOR INVESTIGATOR Hospital Encounter [facility] [address] [place] [address] Jaya Grier MD [address] [facility] [address] GA[address]ES [address] [place] [address] 07/13/2024 9:00 AM SENIOR INVESTIGATOR - 07/13/2024 9:30 AM SENIOR INVESTIGATOR Surgery [facility] [address] [place] [address] Jaya Grier MD [address] [facility] [address] [place] [address] ESOPHAGOGASTRODUODENOSCOPY Scheduled Procedures Name Priority Associated Diagnoses Date/Ti me ESOPHAGOGASTRODUODENOSCOPY Anemia, unspecified type Gastritis without bleeding, unspecified chronicity, unspecified gastritis type 07/13/2024 9:00 AM SENIOR INVESTIGATOR COLONOSCOPY Iron deficiency anemia due to chronic blood loss documented as of this encounter Visit Diagnoses Diagnosis Parkinsonism, unspecified Parkinsonism type (HCC)- Primary Anemia, unspecified type Gastritis without bleeding, unspecified chronicity, unspecified gastritis type documented in this encounter Care Teams Mechanic Senior Relationship Specialty Start Date End Date Cherelle Corcoran MD PCP - General Family Medicine 08/30/19 Mark Queen MD Consulting Physician Infectious Diseases 01/10/20 Anam Costa LCSW Program Analyst 08/08/22 02/18/23 Jesus, Melania Joel RN [address] [place] [address] [address] [place] [address] Bit Sander 08/22/22 12/07/22 documented as of this encounter
--- OUTSIDE RECORDS SUMMARY | 2024-07-04 04:11 | XMS_ITS | Encounter Summary ---
Author Organization [facility] Healthcare Address [address] [place] [address] Care Team Providers Care Marketing Technology Coordinator Name Role Phone Cherelle Corcoran MD Primary Care Pro vider Mark Queen MD Unavailable [phone] Anam Costa ASSISTANT IMPORT MANAGER Unavailable Unavailabl Melania Moncada RN Unavailable [phone] Reason for Referral * Diagnostic Imaging (Routine) - Closed Specialty Diagnoses / Procedures Referred By Maryse lama Referred To Contact Diagnoses Encounter for screening mammogram for malignant neoplasm of breast Procedures Screening Mammogram Bilateral W Cherelle Rodríguez MD Phone: tel: fax: [address] [address] Referral ID Status Reason Start Date Expiration Date Visits Re quested Visits Authorized [id number] Closed 06/09/2022 07/09/2023 1 1 Reason for Visit * Diagnostic Imaging (Routine) - Closed Specialty Diagnoses / Procedures Referred By Maryse lama Referred To Contact Diagnoses Encounter for screening mammogram for malignant neoplasm of breast Procedures Screening Mammogram Bilateral W Cherelle Rodríguez MD Phone: tel: fax: [facility] [address] [place] [address] Referral ID Status Reason Start Date Expiration Date Visits Re quested Visits Authorized [id number] Closed 06/09/2022 07/09/2023 1 1 Encounter Details Date Type Department Care Team (Latest Contact Info) Description 09/25/2022 3:40 PM CDT - 09/25/2022 11:59 PM CDT Hospital Encounter [facility] [address] [facility] [address] [place] [address] Encounter for screening mammogram for malignant neoplasm of breast Discharge Disposition: Discharge to home or self [...] you attend chur ch or yazidi services? More than 4 times per year [...] slept in a correction (including now)? No 08/08/2022 Comments No Sex and Gender Information Value Date Recorded Sex Assigned at Not on file Legal Sex Female 9:03 AM TECHNICIAN AUTOMATED EQUIPMENT Gender Identity Female 02/08/2020 6:39 PM CDT [...] every 12 (twelve) hours 180 tablet 09/19/2022 3 atorvastatin (LIPITOR) 20 mg tabletIndications: Hyperlipidemia associated with type 2 diabetes mellitus (HCC) Take 1 tablet (20 mg total) by mouth daily 90 tablet 3 05/26/2022 3 BD Alryn 2nd Gen Pen Needle 32 gauge x needleIndications: Type 2 diabetes mellitus with diabetic neuropathy, with long-term current use of insulin ([facility]) USE TO INJECT BASAGLAR [...] with long-term current use of insulin ([facility]) Inject 0.5 mL (1.5 [...] flash glucose scanning reader (FreeStyle Madhav 2 [place]) miscIndications:Ty pe 2 diabetes mellitus with diabetic neuropathy, with long-term current use of insulin ([facility]) Use to continually monitor glucose 1 each 10/01/2021 3 flash glucose sensor (FreeStyle Madhav 2 Sensor) kitIndications:Typ e 2 diabetes mellitus with diabetic neuropathy, with long-term current use of insulin ([facility]) Use to continually monitor glucose, change every 14 days 6 kit 3 10/01/2021 3 furosemide (LASIX) 40 mg tablet Take 1 tablet (40 mg total) by mouth 2 (two) times a day 60 tablet 11 10/16/2021 3 insulin glargine 100 unit/mL (3 mL) pen for injectionIndicatio ns:Type 2 diabetes mellitus with diabetic neuropathy, with long-term current use of insulin ([facility]) Inject 25 Units under [...] pressure daily 1 each 1 10/07/2021 3 OneTouch Verio test strips stripIndications:U ncontrolled type [...] MISC) 3 times a day 09/12/2017 3 valsartan (DIOVAN) 40 mg tablet 09/15/2022 3 documented as of this encounter Discharge Disposition Disposition Code Departure Means Destination Discharge to home or self care documented in this encounter Plan of Treatment Upcoming Encounters Date Type Department Care Team (Latest Contact Info) Description 07/13/2024 9:00 AM TECHNICIAN AUTOMATED EQUIPMENT Hospital Encounter [facility] [address] [place] [address] Jaya Grier MD [address] [place] [address] [address] [place] [address] 07/13/2024 9:00 AM TECHNICIAN AUTOMATED EQUIPMENT - 07/13/2024 9:30 AM TECHNICIAN AUTOMATED EQUIPMENT Surgery [facility] [address] [place] [address] Jaya Grier MD [facility] [address] GAIN[address] [place] [address] ESOPHAGOGASTRODUODENOSCOPY Scheduled Procedures Name Priority Associated Diagnoses Date/Ti or ESOPHAGOGASTRODUODENOSCOPY Anemia, unspecified type Gastritis without bleeding, unspecified chronicity, unspecified gastritis type 07/13/2024 9:00 AM TECHNICIAN AUTOMATED EQUIPMENT COLONOSCOPY Iron deficiency anemia due to chronic blood loss documented as of this encounter Procedures Procedure Name Priority Date/Time Associated Diagnosis Comments SCREENING MAMMOGRAM BILATERAL W STALIN Schedule Routine, Read Routine (OP Routine) 09/25/2022 4:11 PM CDT Encounter for screening mammogram for malignant neoplasm of breast documented in this encounter Results * Screening Mammogram Bilateral W Stalin (09/25/2022 4:11 PM CDT) Anatomical Region Laterality Modality Breast Bilateral Mammography Impressions 09/25/2022 4:17 PM CDT BI-RADS?? ATLAS category (overall): 1 - Negative There is no mammographic evidence of malignancy. A 1 year screening mammogram is recommended. The patient has been or will be contacted. We recommend annual screening mammography for women at average risk of breast cancer beginning at age 40, based on guidelines of the [employer] (ACR Practice Parameter for the Performance of Screening and Diagnostic Mammography) and [employer]. For women with and elevated risk of breast cancer, please refer to the ACR Practice Parameter for specific screening recommendations. The patient will be entered into a reminder system with a target due date of 1 year for her next screening exam. Narrative 09/25/2022 4:17 PM CDT Screening Mammogram Bilateral W Stalin: 09/25/22 The study was acquired using full field digital technology and interpreted from soft copy. 2D digital mammographic views, as well as 3D digital tomosynthesis were performed in the CC and MLO projections. CLINICAL: ??Encounter for screening mammogram for malignant neoplasm of breast ??No relevant medical history has been documented for this patient. ?? No known family history of breast cancer. [...] breast. There has been no suspicious change. Cherelle Corcoran MD IMG MAMMO PROCEDU RES Final Result documented in this encounter Visit Diagnoses Diagnosis Encounter for screening mammogram for malignant neoplasm of breast Anemia, unspecified type Gastritis without bleeding, unspecified chronicity, unspecified gastritis type documented in this encounter Care Teams Marketing Technology Coordinator Relationship Specialty Start Date End Date Cherelle Corcoran MD PCP - General Family Medicine 08/30/19 Mark Queen MD Consulting Physician Infectious Diseases 01/10/20 Anam Costa LCSW Ballast Cleaning Operator 2/17/23 8/30/23 Samples, Melania Joel RN [address] [place] [address] [address] [place] [address] Housetrailer Servicer 08/22/22 12/07/22 documented as of this encounter
--- OUTSIDE RECORDS SUMMARY | 2024-07-04 04:11 | XMS_ITS | Encounter Summary ---
Author Organization [facility] Healthcare Address [address] [place] [address] Care Team Providers Care Remote Coders Name Role Phone Cherelle Corcoran MD Primary Care Pro vider Mark Queen MD Unavailable [phone] Anam Costa LCSW Unavailable Unavailabl Melania Moncada RN Unavailable [phone] Encounter Details Date Type Department Care Team (Late st Contact Info) Description 09/05/2022 Documentation [facility] OP Occup Therapy [address] [place] [id number] Jerel Cardenas, OT Social History Tobacco [...] week 08/08/2022 How often do you attend [facility] or scientology services? More than 4 times per year [...] on file Legal Sex Female 9:03 AM PHYSICALLY IMPAIRED TEACHER Gender Identity Female 02/08/2020 6:39 PM CDT Sexual Orientation Not on file documented as of this encounter Progress Notes * Jerel Cardenas OT - 09/05/2022 2:36 PM CDT No call/no show this date. Noted to be admitted to ER yesterday 09/04/2022. CG documented in this encounter Plan of Treatment Upcoming Encounters Date Type Department Care Team (Latest Contact Info) Description 07/13/2024 9:00 AM PHYSICALLY IMPAIRED TEACHER Hospital Encounter [facility] [address] [place] [address] Jaya Grier MD [address] [place] [address] [address] [place] [address] 07/13/2024 9:00 AM PHYSICALLY IMPAIRED TEACHER - 07/13/2024 9:30 AM PHYSICALLY IMPAIRED TEACHER Surgery [facility] [address] [place] [address] Jaya Grier MD [address] [place] [address] [address] [place] [address] ESOPHAGOGASTRODUODENOSCOPY Scheduled Procedures Name Priority Associated Diagnoses Date/Ti me ESOPHAGOGASTRODUODENOSCOPY Anemia, unspecified type Gastritis without bleeding, unspecified chronicity, unspecified gastritis type 07/13/2024 9:00 AM PHYSICALLY IMPAIRED TEACHER COLONOSCOPY Iron deficiency anemia due to chronic blood loss documented as of this encounter Visit Diagnoses Not on filedocumented in this encounter Care Teams Remote Coders Relationship Specialty Start Date End Date Cherelle Corcoran MD PCP - General Family Medicine 08/30/19 Mark Queen MD Consulting Physician Infectious Diseases 01/10/20 Anam Costa LCSW Shipping Track Supervisor 08/08/22 02/18/23 Samples, Melania Joel RN [address] [place] [address] [address] [place] [address] Shoe Lining Fitter 08/22/22 12/07/22 documented as of this encounter
--- OUTSIDE RECORDS SUMMARY | 2024-07-04 04:11 | XMS_ITS | Encounter Summary ---
Author Organization [facility] Address [address] [place] [address] Care Team Providers Care Field Marketing Associate Name Role Phone Cherelle Corcoran MD Primary Care Pro vider Mark Queen MD Unavailable [phone] Anam CostaW Unavailable UnavailMelania Rae RN Unavailable [phone] Reason for Visit * Reason Onset Date Comments Test Results 11/06/2022 Encounter Details Date Type Department Care Team ([facility] Contact Info) Description 11/06/2022 Telephone [facility] Primary Care at [place] [id number] [facility] [address] [place] [address] Cherelle Corcoran MD [address] [place] [phone] Test Results Social History Tobacco Use Types Packs/Day Years [...] How often do you attend chur or amish services? More than 4 times [...] money to buy more. Never true 10/04/19 Within the past 12 months, t he [...] on file Legal Sex Female 9:03 AM FLOWERS SALESPERSON Gender Identity Female 02/08/2020 6:39 PM CDT Sexual Orientation Not on file documented as of this encounter Miscellaneous Notes * Telephone Encounter - Sandy Mota MA - 11/06/2022 3:07 PM CDT Spoke to daughter and she is made aware. Verbalized understanding. She is going to have pt stop taking the blood thinner for now. Informed her that if she needs anything else to give us a call or message me via [employer]. Thanks! * Telephone Encounter - Sandy Mota MA - 11/06/2022 3:06 PM CDT ----- Message from Cherelle Corcoran MD sent at 11/05/2022 2:17 PM CDT ----- Please advise: No longer has DVT, could consider stopping blood thinners. If not very active/mobilethere is a chance of developing another clot. If another clot developed I would recommend being on blood thinner indefinitely. Risks of continuing on blood thinner are bleeding, especially in case ofa fall. Let me know what you guys would like to do. Any questions please let me know. documented in this encounter Plan of Treatment Upcoming Encounters Date Type Department Care Team (Latest Contact Info) Description 07/13/2024 9:00 AM FLOWERS SALESPERSON Hospital Encounter [facility] [address] [place] [address] Jaya Grier MD [address] [address] 07/13/2024 9:00 AM FLOWERS SALESPERSON - 07/13/2024 9:30 AM FLOWERS SALESPERSON Surgery [facility] [address] [place] [address] Jaya Grier MD [address] [facility] [address] [place] [address] ESOPHAGOGASTRODUODENOSCOPY Scheduled Procedures Name Priority Associated Diagnoses Date/Ti me ESOPHAGOGASTRODUODENOSCOPY Anemia, unspecified type Gastritis without bleeding, unspecified chronicity, unspecified gastritis type 07/13/2024 9:00 AM FLOWERS SALESPERSON COLONOSCOPY Iron deficiency anemia due to chronic blood loss documented as of this encounter Visit Diagnoses Not on filedocumented in this encounter Care Teams Field Marketing Associate Relationship Specialty Start Date End Date Cherelle Corcoran MD PCP - General Family Medicine 08/30/19 Mark Queen MD Consulting Physician Infectious Diseases 01/10/20 Anam Costa LCSW Supply And Distribution Manager 08/08/22 02/18/23 Melania Lee, RN [address] [place] [address] [address] [place] [address] Television News Reporter 08/22/22 12/07/22 documented as of this encounter
--- OUTSIDE RECORDS SUMMARY | 2024-07-04 04:11 | XMS_ITS | Encounter Summary ---
Author Organization [facility] Address [address] [place] [address] Care Team Providers Care Senior Technical Architect Name Role Phone Cherelle Corcoran MD Primary Care Pro vider Mark Queen MD Unavailable [phone] Anam CostaW Unavailable UnavailMelania Rae RN Unavailable [phone] Encounter Details Date Type Department Care Team (Late st Contact Info) Description 10/14/2022 Telephone [facility] Nephrology at [address] [place] [address] [place] [address] [place] [address] [address] [place] [address] Social History Tobacco Use Types Packs/Day Years [...] often do you attend chur ch or adventism services? More than 4 times per year [...] slept in a custodial (including now)? No 10/03/2022 Comments No Sex and Gender Information Value Date Recorded Sex Assigned at Not on file Legal Sex Female 9:03 AM ENGINE OILER Gender Identity Female 02/08/2020 6:39 PM CDT Sexual Orientation Not on file documented as of this encounter Ordered Prescriptions Prescription Sig Dispense Quantity Refills Last Filled Start Date End Date losartan (COZAAR) 50 mg tablet Take 1 tablet (50 mg total) by mouth daily 30 tablet 11 10/14/2022 11/13/2022 documented in this encounter Miscellaneous Notes * Telephone Encounter - Mihaela Mejia MA - 10/14/2022 10:48 AM CDT Daughter Areli was informed. Rx sent to [facility] in [place]. Lab orders added onto Retacrit orders for 2 weeks from now. * Telephone Encounter - Mihaela Mejia MA - 10/14/2022 10:48 AM CDT ----- Message from Markie Ryan MD sent at 10/13/2022 4:12 PM CDT ----- Protein in urine up significantly off of her ARB. Would start losartan 50 mg a day and check a repeat CMP in 2 weeks please documented in this encounter Plan of Treatment Upcoming Encounters Date Type Department Care Team (Latest Contact Info) Description 07/13/2024 9:00 AM ENGINE OILER Hospital Encounter [facility] [address] [place] [address] Jaya Grier MD [address] [place] [address] [address] 07/13/2024 9:00 AM ENGINE OILER - 07/13/2024 9:30 AM ENGINE OILER Surgery [facility] [address] [place] [address] Jaya Grier MD [address] [facility] [address] [place] [address] ESOPHAGOGASTRODUODENOSCOPY Scheduled Procedures Name Priority Associated Diagnoses Date/Ti nj ESOPHAGOGASTRODUODENOSCOPY Anemia, unspecified type Gastritis without bleeding, unspecified chronicity, unspecified gastritis type 07/13/2024 9:00 AM ENGINE OILER COLONOSCOPY Iron deficiency anemia due to chronic blood loss documented as of this encounter Visit Diagnoses Not on filedocumented in this encounter Discontinued Medications Medication Sig Discontinue Reason Start Date End Da te valsartan (DIOVAN) 40 mg tablet 09/15/2022 10/14/2022 documented as of this encounter Care Teams Senior Technical Architect Relationship Specialty Start Date End Date Cherelle Corcoran MD PCP - General Family Medicine 08/30/19 Mark Queen MD Consulting Physician Infectious Diseases 01/10/20 Anam Costa LCSW Impact Retail Service Merchandiser 08/08/22 02/18/23 Jesus, Melania Joel, RN [address] [place] [address] [address] [place] [address] Paper Bag Press Operator 08/22/22 12/07/22 documented as of this encounter
--- OUTSIDE RECORDS SUMMARY | 2024-07-04 04:11 | XMS_ITS | Encounter Summary ---
Author Organization [facility] Address [address] [place] [address] Care Team Providers Care Clinical Transplant Coordinator Name Role Phone Cherelle Corcoran MD Primary Care Pro vider Mark Queen MD Unavailable [phone] Anam CostaW Unavailable Unavailabl Melania Moncada RN Unavailable [phone] Reason for Visit * Reason Comments Chronic Kidney Disease - Follow Up Visit Encounter Details Date Type Department Care Team (Late st Contact Info) Description 09/10/2022 1:45 PM CDT Office Visit [facility] Nephrology [address] [facility] [address] [place] [address] Markie Ryan MD [facility]9 [facility] [address] GAINES [address] [place] [address] Stage 3b chronic kidney disease (HCC) (Primary [...] slept in a longterm (including now)? No 08/08/2022 Comments No Sex and Gender Information Value Date Recorded Sex Assigned at Not on file Legal Sex Female 9:03 AM SWEEPER DRIVER Gender Identity Female 02/08/2020 6:39 PM CDT Sexual Orientation Not on file documented as of this encounter Last Filed Vital Signs Vital Sign Reading Time Taken Comments Blood Pressure 131/63 09/10/2022 1:40 PM CDT Pulse 72 09/10/2022 1:40 PM CDT Temperature 36.2 ??C (97.2 ??F) 09/10/2022 1:40 PM CD T Respiratory Rate - - Oxygen Saturation - - Inhaled Oxygen Concentration - - Weight 69.9 kg (154 lb) 09/10/2022 1:40 PM CDT Height 157.5 cm (5' 2 ) 09/10/2022 1:40 PM CDT Body Mass Index 28.17 09/10/2022 1:40 PM CDT documented in this encounter Progress Notes * Markie Ryan MD - 09/10/2022 1:45 PM CDT Images from the original note were not included. Subjective/Objective Patient ID: Barbara Chakraborty is a 71 y.o. female. Chief Complaint Chronic Kidney Disease - Follow Up Visit HPI This is a patient with chronic kidney disease. She has a history of diabetes since 1997 and a more recent history of hypertension. She does have a history of schizophrenia and had significant difficulty controlling her glucose. Previously albuminuria estimated at 500 mg per day. Most recent serum creatinine of 1.73 which is stable, she had labs drawn elsewhere with a hemoglobin of 8.8. Review of Systems Constitutional: Negative for appetite change and positive for fatigue. HENT: Negative. Eyes: Negative. Respiratory: Negative for cough, chest tightness and shortness of breath. Cardiovascular: Negative for chest pain, palpitations and positive for leg swelling. Gastrointestinal: Negative for abdominal [...] Refill acetaminophen (TYLENOL) 325 mg tablet Take 650 [...] flash glucose scanning reader (FreeStyle Madhav 2 [place]) [facility] Use to continually monitor glucose 1 each [...] day with meals 33 mL 1 lancets [facility] Check blood sugar up to 3 times a day 100 each 3 miscellaneous medical supply (Blood Pressure Cuff) [facility] Use to check blood pressure daily 1 [...] syringe with needle, insulin (INSULIN SYRINGE-NEEDLE U-100 [facility]) 3 times a day amoxicillin-clavulanate (Augmentin) 500-125 mg per tablet Take 1 tablet by mouth every 12 (twelve) hours for 10 days (Patient not taking: Reported on 09/10/2022) 20 tablet 0 No current facility-administered medications for this visit. No Known Allergies Vitals BP 131/63 (BP Location: Left arm, Patient Position: Sitting) Pulse 72 Temp 36.2 ??C (97.2 ??F) (Temporal) Ht 157.5 cm (5' 2 ) Wt 69.9 kg (154 lb) BMI 28.17 kg/m?? Physical Exam Constitutional: Appears well-developed and well-nourished. Head: Normocephalic and atraumatic. Eyes: EOM are normal. Neck: Normal range of motion. Cardiovascular: Normal rate and regular rhythm. Pulmonary/Chest: diminished breath sounds at bases bilaterally Abdominal: Soft. Bowel sounds are normal. Musculoskeletal: limited range of motion with 1+ bilateral lower extremity edema Neurological: Alert and oriented to person, place, and time. Skin: Skin is warm and dry. Psychiatric: Normal mood and affect. Assessment/Plan Diagnoses and all orders for this visit: Stage 3b chronic kidney disease (HCC) (N18.32) (Primary) - Comprehensive metabolic panel; Future - PTH; Future Anemia in stage 3b chronic kidney disease (HCC) (N18.32, D63.1) - CBC with auto differential; Standing - Vitamin B12; Future - Iron profile w/ IBC; Future Diabetic nephropathy (CMS/HCC) (HCC) (E11.21) - Albumin Creatinine Ratio, Urine; Future Benign hypertensive kidney disease with chronic kidney disease stage I through stage IV, or unspecified(403.10) (I12.9) CKD with a long-term history of diabetes. The patient does have underlying schizophrenia and glucose control had been difficult. Serum creatinine remaining stable, anemic on most recent labs. Had ordered iron studies previously but not obtained apparently and will reorder today. Will also check routine CKD labs and quantify albuminuria if possible. Had resumed her ARB at her last visit but not on this agent at present. She has had hospitalizations elsewhere in the interim and will reassess resuming if possible. documented in this encounter Plan of Treatment Upcoming Encounters Date Type Department Care Team (Latest Contact Info) Description 07/13/2024 9:00 AM [facility] Hospital Encounter [facility] GI [facility] [address] [place] [address] Jaya Grier MD [facility]8 [facility] [address] GAINES [address] [place] [address] 07/13/2024 9:00 AM SWEEPER DRIVER - 07/13/2024 9:30 AM [facility] Surgery [facility] GI Lab [address] [place] [address] Jaya Grier MD [address] [facility] [address] GAINES [address] [place] [address] ESOPHAGOGASTRODUODENOSCOPY Scheduled Procedures Name Priority Associated Diagnoses Date/Ti wa ESOPHAGOGASTRODUODENOSCOPY Anemia, unspecified type Gastritis without bleeding, unspecified chronicity, unspecified gastritis type 07/13/2024 9:00 AM SWEEPER DRIVER COLONOSCOPY Iron deficiency anemia due to chronic blood loss documented as of this encounter Results * (ABNORMAL) Iron profile w/ IBC (10/10/2022 11:39 AM CDT) Iron 60 35 - 145 mcg/dL NILSA Comment:Testing performed by : [facility], [address] [place] [address]., [address] TIBC 246(L) 250 - 400 mcg/dL NILSA Comment:Testing performed by : [facility], [address] [place] [address]., [address] Transferrin saturation 24 20 - 50 % NILSA Comment:Testing performed by : [address] [address] Blood 10/10/2022 11:3 9 AM CDT 10/10/2022 1:44 PM CDT Markie Ryan MD LAB BLOOD ORDERABLES Final Re sult Performing Organization Address [facility] Co de Phone Number [address] [place] [address] * Vitamin B12 (10/10/2022 11:39 AM CDT) Pathologist [facility] Vitamin B12 749 230 - 1,250 pg/mL NILSA Comment:Testing performed by : [address], [address] Blood 10/10/2022 11:3 9 AM CDT 10/10/2022 1:44 PM CDT Markie Ryan MD LAB BLOOD ORDERABLES Final Re sult Performing Organization Address City/[facility]/ZIP Co de Phone Number [address] [place] [address] * PTH (10/10/2022 11:39 AM CDT) PTH 39 15 - 65 pg/mL NILSA Comment:Testing performed by : [address] [address] Blood 10/10/2022 11:3 9 AM CDT 10/10/2022 1:44 PM CDT Markie Ryan MD LAB BLOOD ORDERABLES Final Re sult NILSA [address] [facility] [place] [address] * (ABNORMAL) Comprehensive metabolic panel (10/10/2022 11:39 AM CDT) Sodium 148(H) 135 - 145 mmol/L NILSA Comment:Testing performed by : [address] [address] Potassium, pl 4.4 3.3 - 4.9 mmol/L NILSA Comment:Testing performed by : [address] [address] Chloride 110 97 - 110 mmol/L NILSA Comment:Testing performed by : [address] [address] CO2 27 22 - 32 mmol/L NILSA Comment:Testing performed by : [address] [address] Anion gap 11 2 - 15 mmol/L NILSA Comment:Testing performed by : [address] [address] BUN 30(H) 8 - 25 mg/dL NILSA Comment:Testing performed by : [address] [address] Creatinine 1.80(H) 0.60 - 1.10 mg/dL NILSA Comment:Testing performed by : [address] [address] Glucose 166 70 - 199 mg/dL NILSA [...] was last revised 2022. Testing performed by: [address] [address] Calcium 9.9 8.5 - 10.3 mg/dL NILSA Comment:Testing performed by : [address] [address] Bilirubin, total 0.2 0.1 - 1.2 mg/dL NILSA Comment:Testing performed by : [address] [address] Protein, pl 7.8 6.5 - 8.5 g/dL NILSA Comment:Testing performed by : [address] [address] Albumin 3.5 3.5 - 5.0 g/dL NILSA Comment:Testing performed by : [address] [address] Alk phos 116 40 - 130 Units/L NILSA Comment:Testing performed by : [address] [address] ALT 7 7 - 45 Units/L NILSA Comment:Testing performed by : [address] [address] AST 18 10 - 45 Units/L NILSA Comment:Testing performed by : [address] [address] Blood 10/10/2022 11:3 9 AM CDT 10/10/2022 1:44 PM CDT us Markie Ryan MD LAB BLOOD ORDERABLES Final Re sult NILSA [address] [facility] Department of Laboratories [place], [place] [id number] * (ABNORMAL) Albumin Creatinine Ratio, Urine (10/10/2022 11:39 AM CDT) Albumin Ur 3,240.2 mg/L NILSA Comment: Interpretive Data No reference range established. Current interpretive data was last revised 2018. Testing performed by: [address] [address] Creatinine Ur 74.8 mg/dL NILSA RODRIGES Comment: Interpretive Data No reference range established. Current interpretive data was last revised 2018. Testing performed by: [facility], [address] [place] [address]., [address] Albumin Creatinine Ratio, Ur 4,332(H) 1 - 29 mg/g NILSA RODRGIES Comment:Testing performed by : [facility], [address] [place] [address]., [address] Urine 10/10/2022 11:3 9 AM CDT 10/10/2022 1:45 PM CDT us Markie Ryan MD LAB URINE ORDERABLES Final Re sult NILSA [address] [facility] [place] [address] documented in this encounter Visit Diagnoses Diagnosis [...] type documented in this encounter Care Teams Clinical Transplant Coordinator Relationship Specialty Start Date End Date Cherelle Corcoran MD PCP - General Family Medicine 08/30/19 Mark Queen MD Consulting Physician Infectious Diseases 01/10/20 Anam Costa LCSW Emergency Care Tech 08/08/22 02/18/23 Samples, Melania Joel RN [address] [place] [address] [place] [address] Surg Physician Asst 08/22/22 12/07/22 documented as of this encounter
--- OUTSIDE RECORDS SUMMARY | 2024-07-04 04:11 | XMS_ITS | Encounter Summary ---
Author Organization [facility] Address [address] [place] [address] Care Team Providers Care Space Scheduler Name Role Phone Cherelle Corcoran MD Primary Care Pro vider Mark Queen MD Unavailable [phone] Anam Costa LCSW Unavailable Unavailabl Melania Moncada RN Unavailable Encounter Details Date Type Department Care Team (Late st Contact Info) Description 10/16/2022 Documentation [facility] OP Occup Therapy [address] [place] [address] Jerel Cardenas, OT Social History Tobacco [...] week 10/03/2022 How often do you attend [facility] or jewish services? More than 4 times [...] on file Legal Sex Female 9:03 AM BEAD PICKER Gender Identity Female 02/08/2020 6:39 PM CDT Sexual Orientation Not on file documented as of this encounter Progress Notes * Jerel Cardenas OT - 10/16/2022 9:28 AM CDT No call/no show. 10/16/2022 CG documented in this encounter Plan of Treatment Upcoming Encounters Date Type Department Care Team (Latest Contact Info) Description 07/13/2024 9:00 AM BEAD PICKER Hospital Encounter [facility] GI Lab [address] [place] [address] Jaya Grier MD [address] [place] [address] DR GAINES [address] [place] [address] 07/13/2024 9:00 AM BEAD PICKER - 07/13/2024 9:30 AM BEAD PICKER Surgery [facility] Lab [address] [place] [address] Jaya Grier MD [address] [place] [address] [address] GAINES [address] [place] [address] ESOPHAGOGASTRODUODENOSCOPY Scheduled Procedures Name Priority Associated Diagnoses Date/Ti wa ESOPHAGOGASTRODUODENOSCOPY Anemia, unspecified type Gastritis without bleeding, unspecified chronicity, unspecified gastritis type 07/13/2024 9:00 AM BEAD PICKER COLONOSCOPY Iron deficiency anemia due to chronic blood loss documented as of this encounter Visit Diagnoses Not on filedocumented in this encounter Care Teams Space Scheduler Relationship Specialty Start Date End Date Cherelle Corcoran MD PCP - General Family Medicine 08/30/19 Mark Queen MD Consulting Physician Infectious Diseases 01/10/20 Anam Costa LCSW A&P Mechanic 08/08/22 02/18/23 Samples, Melania Joel RN [address] [place] [address] DR GAINES [address] [place] [address] Construction Project Assistant 08/22/22 12/07/22 documented as of this encounter
--- OUTSIDE RECORDS SUMMARY | 2024-07-04 04:11 | XMS_ITS | Encounter Summary ---
Author Organization [facility] Healthcare Address [address] [place] [address] Care Team Providers Care Vascular Technologist Sonographer Name Role Phone Cherelle Corcoran MD Primary Care Pro vider Mark Queen MD Unavailable [phone] Anam Costa LCSW Unavailable Unavailabl Melania Moncada RN Unavailable [phone] Encounter Details Date Type Department Care Team (Late st Contact Info) Description 10/10/2022 Orders Only [address] RN Social History Tobacco Use Types Packs/Day [...] week 10/03/2022 How often do you attend [facility] or mormon services? More than 4 times per year [...] slept in a detention (including now)? No 10/03/2022 Comments No Sex and Gender Information Value Date Recorded Sex Assigned at Not on file Legal Sex Female 9:03 AM COSTUME RENTAL CLERK Gender Identity Female 02/08/2020 6:39 PM CDT Sexual Orientation Not on file documented as of this encounter Plan of Treatment Upcoming Encounters Date Type Department Care Team (Latest Contact Info) Description 07/13/2024 9:00 AM COSTUME RENTAL CLERK Hospital Encounter [facility] GI Lab [address] [place] [address] Jaya Grier MD [address] [facility] [address] [place] [address] 07/13/2024 9:00 AM COSTUME RENTAL CLERK - 07/13/2024 9:30 AM COSTUME RENTAL CLERK Surgery [facility] GI Lab [address] [place] [address] Jaya Grier MD [address] [facility] [address] [place] [address] ESOPHAGOGASTRODUODENOSCOPY Scheduled Procedures Name Priority Associated Diagnoses Date/Ti me ESOPHAGOGASTRODUODENOSCOPY Anemia, unspecified type Gastritis without bleeding, unspecified chronicity, unspecified gastritis type 07/13/2024 9:00 AM COSTUME RENTAL CLERK COLONOSCOPY Iron deficiency anemia due to chronic blood loss documented as of this encounter Visit Diagnoses Not on filedocumented in this encounter Care Teams Vascular Technologist Sonographer Relationship Specialty Start Date End Date Cherelle Corcoran MD PCP - General Family Medicine 08/30/19 Mark Queen MD Consulting Physician Infectious Diseases 01/10/20 Anam Costa LCSW Appliance Installer 08/08/22 02/18/23 Jesus, Melania Joel RN [address] [place] [address] [address] [place] [address] Sales Operations Consultant 08/22/22 12/07/22 documented as of this encounter
--- OUTSIDE RECORDS SUMMARY | 2024-07-04 04:11 | XMS_ITS | Encounter Summary ---
Author Organization [facility] Healthcare Address [address] [place] [address] Care Team Providers Care Hospitality Job Titles Name Role Phone Cherelle Corcoran MD Primary Care Pro vider Mark Queen MD Unavailable [phone] Anam CostaW Unavailable UnavailMelania Rae RN Unavailable [phone] Reason for Visit * Reason Comments OT Treatment Encounter Details Date Type Department Care Team (Late st Contact Info) Description 09/25/2022 8:00 AM CDT Therapy [facility] OP Occup Therapy [address] [place] [address] Rody Luciano, BURTON Parkinsonism, unspecified Parkinsonism type (HCC) (Primary Dx) [...] on file Legal Sex Female 9:03 AM STOVE MECHANIC Gender Identity Female 02/08/2020 6:39 PM CDT Sexual Orientation Not on file documented as of this encounter Progress Notes * LucianoRody, BURTON - 09/25/2022 8:00 AM CDT Images from the original note were not included. OCCUPATIONAL THERAPY Treatment note 09/25/2022 Time In: 833 Time out: 929 Total Treatment time: 56 minutes Barbara Chakraborty 1950 71 y.o. female Cherelle Corcoran MD [address] [address] ICD-9-CM ICD-10-CM 1. Parkinsonism, unspecified Parkinsonism type (HCC) 332.0 G20 TREATMENT DIAGNOSIS: decreased balance, decreased ADL/IADL skills, decreased BUE ROM/strength/endurance/coordination, decreased amplitude, decreased safety, decreased functional transfers, decreased functional mobility SUBJECTIVE: Patient reports: That hurts in my low back when I stand up straight. Pain: 10 Pain Location: right foot aching, then reports low back pain with big movements, rating at 6/10 Falls since last treatment session: No Time of last Parkinson's medication taken: Not discussed Precautions: fall OBJECTIVE: Seated and standing exercises completed focusing on amplitude, balance, co- ordination. Verbal/visual modeling provided by this therapist Exercise Reps Cue level for amplitude of movement Shaping required Demonstration of movement needed Comments Floor to Ceiling 8 mod yes yes Side to Side 8 mod yes yes Forward Step and Reach 8 mod yes yes Sideways Step and Reach 8 max yes yes Backward Step and Reach 8 max yes yes Max difficulty noted Forward Rock and Reach 8 max yes yes Max difficulty noted Sideways Rock and Reach Not completed on this date Reviewed tabletop towel slide ex with max vc's for large movements with fair carryover. Handout of ex re-issued and pt/daughter educated in completion of ex 1-2x/day with good understanding ASSESSMENT: PT tolerated treatment session well on this date. Demonstrates fair carryover of towel slides on this date, May benefit from additional review of towel sides for increased carryover. Requires increased cues for seated and standing exercises on this date and demonstrates max difficulty coordinating backwards step and reach and forward rock and reach on this date. Pt will con't to benefit from skilled [...] Order expiration: 2022 Next progress/re-cert due: 09/30/2022 MICHEAL Nicole/Nadine [facility] Out-Patient Occupational Therapy [email or web address] documented in this encounter Plan of Treatment Upcoming Encounters Date Type Department Care Team (Latest Contact Info) Description 07/13/2024 9:00 AM STOVE MECHANIC Hospital Encounter [facility] GI Lab [address] [place] [address] Jaya Grier MD [facility] [facility] [address] GA[address] [place] [address] 07/13/2024 9:00 AM STOVE MECHANIC - 07/13/2024 9:30 AM STOVE MECHANIC Surgery [facility] [address] [place] [address] Jaya Grier MD [address] [facility] [address] [place] [address] ESOPHAGOGASTRODUODENOSCOPY Scheduled Procedures Name Priority Associated Diagnoses Date/Ti me ESOPHAGOGASTRODUODENOSCOPY Anemia, unspecified type Gastritis without bleeding, unspecified chronicity, unspecified gastritis type 07/13/2024 9:00 AM STOVE MECHANIC COLONOSCOPY Iron deficiency anemia due to chronic blood loss documented as of this encounter Visit Diagnoses Diagnosis Parkinsonism, unspecified Parkinsonism type (HCC)- Primary Anemia, unspecified type Gastritis without bleeding, unspecified chronicity, unspecified gastritis type documented in this encounter Care Teams Hospitality Job Titles Relationship Specialty Start Date End Date Cherelle Corcoran MD PCP - General Family Medicine 08/30/19 Mark Queen MD Consulting Physician Infectious Diseases 01/10/20 Anam Costa LCSW Guest Relation Officer 08/08/22 02/18/23 Jesus, Melania Joel RN [address] [place] [address] [address] [place] [address] Hog Buyer 08/22/22 12/07/22 documented as of this encounter
--- OUTSIDE RECORDS SUMMARY | 2024-07-04 04:11 | XMS_ITS | Encounter Summary ---
Author Organization [facility] Address [address] [place] [address] Care Team Providers Care Health Promotion Coordinator Name Role Phone Cherelle Corcoran MD Primary Care Pro vider Mark Queen MD Unavailable [phone] Anam CostaW Unavailable Unavailabl Melania Moncada RN Unavailable [phone] Reason for Visit * Reason Onset Date Comments Medical Question/Miscellaneous 09/01/2022 Encounter Details Date Type Department Care Team ([facility] st Contact Info) Description 09/01/2022 Telephone [facility] Primary Care [address] [facility] [address] [place] [address] Cherelle Corcoran MD [facility] [address] Medical Question/Miscellaneous Social History Tobacco [...] often do you attend chur ch or tenriism services? More than 4 times per year [...] in a nursing home (including now)? No 10/03/2022 Comments No Sex and Gender Information Value Date Recorded Sex Assigned at Not on file Legal Sex Female 9:03 AM CURING ROOM SUPERVISOR Gender Identity Female 02/08/2020 6:39 PM CDT Sexual Orientation Not on file documented as of this encounter Miscellaneous Notes * Telephone Encounter - Cherelle Corcoran MD - 09/05/2022 5:00 PM CDT Forms updated and given to HONEY Delgado to fax * Telephone Encounter - Sandy Mota MA - 09/01/2022 4:45 PM CDT Spoke to pt daughter and let her know that all 3 of those questions she is needing filled out are filled out completely. She stated she knew that and doesn't know what they are needing. She then began to say that she is needing it for 07/30/2022 because she had to take 30 minutes FMLA in the morning for her mother due to her incontinence. I let her know that I would need to talk to Dr. Corcoran in regards to this. * Telephone Encounter - Christine Bernardo - 09/01/2022 1:19 PM CDT Medical Question/Miscellaneous Caller???s Concern: The patient daughter is requesting a call back to discuss some FMLA paperwork she dropped off (Caller could not recall when she provided the forms but stated that it was recent) the patient daughter stated that her HR informed her that Number 3 on the certification form needs chris answered, and so does questions 5a and 7a on the forms. The patient daughter would like the forms to be re faxed to the number provided on the paperwork and a copy to be sent via [employer] Caller???s Call back #: [phone] Does message need to be routed?Yes-Action Needed documented in this encounter Plan of Treatment Upcoming Encounters Date Type Department Care Team (Latest Contact Info) Description 07/13/2024 9:00 AM CURING ROOM SUPERVISOR Hospital Encounter [facility] [address] [place] [address] Jaya Grier MD [address] [place] [address] [address] [place] [address] 07/13/2024 9:00 AM CURING ROOM SUPERVISOR - 07/13/2024 9:30 AM CURING ROOM SUPERVISOR Surgery [facility] [address] [place] [address] Jaya Grier MD [address] [place] [address] DR GA[address] [place] [address] ESOPHAGOGASTRODUODENOSCOPY Scheduled Procedures Name Priority Associated Diagnoses Date/Ti me ESOPHAGOGASTRODUODENOSCOPY Anemia, unspecified type Gastritis without bleeding, unspecified chronicity, unspecified gastritis type 07/13/2024 9:00 AM CURING ROOM SUPERVISOR COLONOSCOPY Iron deficiency anemia due to chronic blood loss documented as of this encounter Visit Diagnoses Not on filedocumented in this encounter Care Teams Health Promotion Coordinator Relationship Specialty Start Date End Date Cherelle Corcoran MD PCP - General Family Medicine 08/30/19 Mark Queen MD Consulting Physician Infectious Diseases 01/10/20 Anam Costa LCSW Processing Talc And Borate Supervisor 08/08/22 02/18/23 Melania Lee RN [address] [place] [address] [address] [place] [address] Forensic Accountant 08/22/22 12/07/22 documented as of this encounter
--- OUTSIDE RECORDS SUMMARY | 2024-07-04 04:11 | XMS_ITS | Encounter Summary ---
Author Organization [facility] Address [address] [place] [address] Phone Care Team Providers Care Manager Drug Safety Name Role Phone Cherelle Corcoran MD Primary Care Pro vider Mark Queen MD Unavailable [phone] Anam Costa LCSW Unavailable UnavailMelania Rae RN Unavailable [phone] Reason for Visit * Reason Onset Date Comments Medical Specialty Equipment CGM 11/10/2022 Encounter Details Date Type Department Care Team (Late st Contact Info) Description 11/10/2022 Documentation [facility] Endocrinology Metabolism and Lipid [address] 5th [place] [address] [place] [phone] Yoly Herrera RN Medical Specialty Equipment CG Social History Tobacco Use Types Packs/Day Years [...] you attend chur ch or buddhist services? More than 4 times per year [...] slept in a penitentiary (including now)? No 11/11/2022 Comments No Sex and Gender Information Value Date Recorded Sex Assigned at Not on file Legal Sex Female 9:03 AM CENTER MGR Gender Identity Female 02/08/2020 6:39 PM CDT Sexual Orientation Not on file documented as of this encounter Progress Notes * Yoly Herrera RN - 11/10/2022 7:27 PM CDT Images from the original note were not included. documented in this encounter Plan of Treatment Upcoming Encounters Date Type Department Care Team (Latest Contact Info) Description 07/13/2024 9:00 AM CENTER MGR Hospital Encounter [facility] [address] [place] [address] Jaya Grier MD [facility]0 [facility] [address] GA[address] [place] [address] 07/13/2024 9:00 AM CENTER MGR - 07/13/2024 9:30 AM CENTER MGR Surgery [facility] [address] [place] [address] Jaya Grier MD [facility]0 [facility] [address] GAIN[address] [place] [address] ESOPHAGOGASTRODUODENOSCOPY Scheduled Procedures Name Priority Associated Diagnoses Date/Ti me ESOPHAGOGASTRODUODENOSCOPY Anemia, unspecified type Gastritis without bleeding, unspecified chronicity, unspecified gastritis type 07/13/2024 9:00 AM CENTER MGR COLONOSCOPY Iron deficiency anemia due to chronic blood loss documented as of this encounter Visit Diagnoses Not on filedocumented in this encounter Additional Health Concerns Infection Onset Date Last Indicated Resolved Time MRSA Comment:Toe 11/08/22, 12/12/22 11/08/2022 12/12/2022 06/10/2023 3:05 AM CENTER MGR documented as of this encounter Care Teams Manager Drug Safety Relationship Specialty Start Date End Date Cherelle Corcoran MD PCP - General Family Medicine 08/30/19 Mark Queen MD Consulting Physician Infectious Diseases 01/10/20 Anam Costa LCSW Choker Setter 08/08/22 02/18/23 Jesus, Melania Joel, RN [address] [place] [address] [address] [place] [address] Surgical Supply Assistant 08/22/22 12/07/22 documented as of this encounter
--- OUTSIDE RECORDS SUMMARY | 2024-07-04 04:11 | XMS_ITS | Encounter Summary ---
Author Organization [facility] Address [address] [place] [address] Care Team Providers Care Document Preparation Specialist Name Role Phone Cherelle Corcoran MD Primary Care Pro vider Mark Queen MD Unavailable [phone] Anam Costa LCSW Unavailable Unavailabl Melania Moncada RN Unavailable [phone] Encounter Details Date Type Department Care Team (Late st Contact Info) Description 10/21/2022 Documentation [facility] OP Occup Therapy [address] [place] [address] Jerel Cardenas, OT Social History Tobacco [...] week 10/03/2022 How often do you attend [facility] or pentecostalism services? More than 4 times per year [...] slept in a retirement (including now)? No 10/03/2022 Comments No Sex and Gender Information Value Date Recorded Sex Assigned at Not on file Legal Sex Female 9:03 AM SALES AND MARKETING MANAGER Gender Identity Female 02/08/2020 6:39 PM CDT Sexual Orientation Not on file documented as of this encounter Progress Notes * Jerel Cardenas OT - 10/21/2022 8:36 AM CDT No call/no show this date. 10/21/2022 Jerel Cardenas OTR/L [facility] [email or web address] documented in this encounter Plan of Treatment Upcoming Encounters Date Type Department Care Team (Latest Contact Info) Description 07/13/2024 9:00 AM SALES AND MARKETING MANAGER Hospital Encounter [facility] [address] [place] [address] Jaya Grier MD [address] [place] [address] [address] [place] [address] 07/13/2024 9:00 AM SALES AND MARKETING MANAGER - 07/13/2024 9:30 AM SALES AND MARKETING MANAGER Surgery [facility] [address] [place] [address] Jaya Grier MD [facility] [address] GA[address] [place] [address] ESOPHAGOGASTRODUODENOSCOPY Scheduled Procedures Name Priority Associated Diagnoses Date/Ti tn ESOPHAGOGASTRODUODENOSCOPY Anemia, unspecified type Gastritis without bleeding, unspecified chronicity, unspecified gastritis type 07/13/2024 9:00 AM SALES AND MARKETING MANAGER COLONOSCOPY Iron deficiency anemia due to chronic blood loss documented as of this encounter Visit Diagnoses Not on filedocumented in this encounter Care Teams Document Preparation Specialist Relationship Specialty Start Date End Date Cherelle Corcoran MD PCP - General Family Medicine 08/30/19 Mark Queen MD Consulting Physician Infectious Diseases 01/10/20 Anam Costa LCSW Radio Program Director 08/08/22 02/18/23 Jesus, Melania Joel RN [address] [place] [address] [address] [place] [address] [employer] 08/22/22 12/07/22 documented as of this encounter
--- OUTSIDE RECORDS SUMMARY | 2024-07-04 04:11 | XMS_ITS | Encounter Summary ---
Author Organization [facility] Address [address] [facility] [facility] [address] [place] [address] Care Team Providers Care Activity Leader Name Role Phone Cherelle Corcoran MD Primary Care Pro vider Mark Queen MD Unavailable [phone] Anam CostaW Unavailable Unavailabl Melania Moncada RN Unavailable [phone] Reason for Visit * Reason Onset Date Comments Medical Question/Miscellaneous 10/01/2022 Encounter Details Date Type Department Care Team ([facility] st Contact Info) Description 10/01/2022 Telephone [facility] Primary Care [address] [facility] [address] [place] [address] Cherelle Corcoran MD [facility]4 [address] [address] Medical Question/Miscellaneous Social History Tobacco [...] in a senior living (including now)? No 10/03/2022 Comments No Sex and Gender Information Value Date Recorded Sex Assigned at Not on file Legal Sex Female 9:03 AM AIR TUCKER Gender Identity Female 02/08/2020 6:39 PM CDT Sexual Orientation Not on file documented as of this encounter Miscellaneous Notes * Telephone Encounter - Dana Mike MA - 10/01/2022 2:53 PM CDT Medical Question/Miscellaneous Caller???s Concern: Leanor calling from Dr. Hayden' office confirming that Dr. Corcoran is pt's PCP and when she was seen last in office. She was informed that pt was last seen on 08/14/22 for JOY. She voiced understanding. Caller???s Call back #: [phone] Does message need to be routed?No documented in this encounter Plan of Treatment Upcoming Encounters Date Type Department Care Team (Latest Contact Info) Description 07/13/2024 9:00 AM AIR TUCKER Hospital Encounter [facility] [address] [place] [address] Jaya Grier MD [facility]0 [facility] [address] GA[address] [place] [address] 07/13/2024 9:00 AM AIR TUCKER - 07/13/2024 9:30 AM AIR TUCKER Surgery [facility] [address] [place] [address] Jaya Grier MD [facility]0 [facility] [address] [place] [address] ESOPHAGOGASTRODUODENOSCOPY Scheduled Procedures Name Priority Associated Diagnoses Date/Ti me ESOPHAGOGASTRODUODENOSCOPY Anemia, unspecified type Gastritis without bleeding, unspecified chronicity, unspecified gastritis type 07/13/2024 9:00 AM AIR TUCKER COLONOSCOPY Iron deficiency anemia due to chronic blood loss documented as of this encounter Visit Diagnoses Not on filedocumented in this encounter Additional Health Concerns Infection Onset Date Last Indicated Resolved Time COVID: Suspected 10/02/2022 10/02/2022 10/02/2022 8:14 PM CDT documented as of this encounter Care Teams Activity Leader Relationship Specialty Start Date End Date Cherelle Corcoran MD PCP - General Family Medicine 08/30/19 Mark Queen MD Consulting Physician Infectious Diseases 01/10/20 Anam Costa LCSW Client Leader 08/08/22 02/18/23 Melania Lee RN [address] [place] [address] [address] [place] [address] Complex Care Nurse Practitioner 08/22/22 12/07/22 documented as of this encounter
--- OUTSIDE RECORDS SUMMARY | 2024-07-04 04:11 | XMS_ITS | Encounter Summary ---
Author Organization [facility] Address [address] [place] [address] Care Team Providers Care Firer Automatic Stoker Name Role Phone Cherelle Corcoran MD Primary Care Pro vider Mark Queen MD Unavailable [phone] Anam CostaW Unavailable Unavailabl Melania Moncada RN Unavailable [phone] Reason for Visit * Episode Based Medications (Routine) - Pending Review Specialty Diagnoses / Procedures Referred By Contac t Referred To Contact Diagnoses Anemia in chronic kidney disease, on chronic dialysis (HCC) Procedures ND INJ RETACRIT NON-ESRD USE Markie Ryan MD [address] [place] [address] Phone: tel: fax: [address] [address] Phone: tel: fax: Referral ID Status Reason Start Date Expiration Date V isits Requested Visits Authorized [id number] Pending Review 10/10/2022 11/09/2023 1 1 Encounter Details Date Type Department Care Team (Latest Contact Info) Description 10/27/2022 9:28 AM CDT - 10/27/2022 11:59 PM CDT Hospital Encounter [facility] [address] [place] [address] Anemia in stage 4 chronic [...] you attend chur ch or buddhism services? More than 4 times per year [...] on file Legal Sex Female 9:03 AM DETAIL TECHNICIAN Gender Identity Female 02/08/2020 6:39 PM CDT Sexual Orientation Not on file documented as of this encounter Last Filed Vital Signs Vital Sign Reading Time Taken Comments Blood Pressure 170/73 10/27/2022 9:45 AM CDT Pulse 64 10/27/2022 9:45 AM CDT Temperature 36.3 ??C (97.3 ??F) 10/27/2022 9:45 AM CD T Respiratory Rate 20 10/27/2022 9:45 AM CDT Oxygen Saturation 99% 10/27/2022 9:45 AM CDT Inhaled Oxygen Concentration - - [...] use of insulin ([facility]) USE TO INJECT BASAGLAR EVERY [...] use of insulin ([facility]) Inject 0.5 mL (1.5 mg total) under the skin every 7 days 2 mL 2 10/06/2022 11/14/19 23 famotidine (PEPCID) 10 mg tabletIndications: Gastroesophageal reflux disease, unspecified whether esophagitis present Take 1 tablet (10 mg total) by mouth nightly 90 tablet 02/13/2022 11/14/19 23 flash glucose scanning reader ([employer] [address] [place]) miscIndications:Ty pe 2 diabetes mellitus with diabetic [...] (Latest Contact Info) Description 07/13/2024 9:00 AM DETAIL TECHNICIAN Hospital Encounter [facility] [address] [place] [address] Jaya Grier MD [address] [place] [address] [address] [place] [address] 07/13/2024 9:00 AM DETAIL TECHNICIAN - 07/13/2024 9:30 AM DETAIL TECHNICIAN Surgery [facility] [address] [place] [address] Jaya Grier MD [facility]0 [facility] [address] GAIN[address] [place] [address] ESOPHAGOGASTRODUODENOSCOPY Scheduled Procedures Name Priority Associated Diagnoses Date/Ti me ESOPHAGOGASTRODUODENOSCOPY Anemia, unspecified type Gastritis without bleeding, unspecified chronicity, unspecified gastritis type 07/13/2024 9:00 AM DETAIL TECHNICIAN COLONOSCOPY Iron deficiency anemia due to chronic blood loss documented as of this encounter Procedures Procedure Name Priority Date/Time Associated Diagnosis Comments EGFR Timed 10/27/2022 9:47 AM CDT Anemia in stage 4 chronic kidney disease (HCC) DIFFERENTIAL AUTO Routine 10/27/2022 9:4 7 AM CDT Anemia in stage 4 chronic kidney disease (HCC) CBC WITH AUTO DIFFERENTIAL Routine 10/27/2022 9:47 AM CDT Anemia in stage 4 chronic kidney disease (HCC) COMPREHENSIVE METABOLIC PANEL Timed 10/27/2022 9:47 AM CDT Anemia in stage 4 chronic kidney disease (HCC) documented in this encounter Results * eGFR (10/27/2022 9:47 AM CDT) eGFR 25 mL/min/1. 73 m2 NILSA RODRIGES [...] interpretive data was last reviewed 2021. Blood 10/27/2022 9:47 AM CDT 10/27/2022 9:51 AM CDT us Markie Ryan MD LAB BLOOD ORDERABLES Final Re sult NILSA RODRIGES [address] [place] [address] * Differential, auto (10/27/2022 9:47 AM CDT) Neutrophil abs 5.5 1.7 - 6.5 K/cumm [facility] Imm gran abs 0.0 0.0 - 0.1 K/cumm [facility] Lymphocyte abs 2.2 0.8 - 3.3 K/cumm [facility] Monocyte abs 0.5 0.2 - 0.8 K/cumm [facility] Eosinophil abs 0.2 0.0 - 0.5 K/cumm [facility] Basophil abs 0.0 0.0 - 0.1 K/cumm [facility] Neutrophil pct 65.1 % [facility] Comment: Interpretive Data Percent cell count reference ranges are not reported, since discordance with absolute values may lead to misinterpretation of CBC data. Current Interpretive Data was last revised on 2017. Imm gran pct 0.1 % [facility] Comment: Interpretive Data Percent cell count reference ranges are not reported, since discordance with absolute values may lead to misinterpretation of CBC data. Current Interpretive Data was last revised on 2017. Lymphocyte pct 26.0 % [facility] Comment: Interpretive Data Percent cell count reference ranges are not reported, since discordance with absolute values may lead to misinterpretation of CBC data. Current Interpretive Data was last revised on 2017. Monocyte pct 6.0 % [facility] Comment: Interpretive Data Percent cell count reference ranges are not reported, since discordance with absolute values may lead to misinterpretation of CBC data. Current Interpretive Data was last revised on 2017. Eosinophil pct 2.4 % [facility] Comment: Interpretive Data Percent cell count reference ranges are not reported, since discordance with absolute values may lead to misinterpretation of CBC data. Current Interpretive Data was last revised on 2017. Basophil pct 0.4 % [facility] Comment: Interpretive Data Percent cell count reference ranges are not reported, since discordance with absolute values may lead to misinterpretation of CBC data. Current Interpretive Data was last revised on 2017. Blood 10/27/2022 9:47 AM CDT 10/27/2022 9:51 AM CDT us Markie Ryan MD LAB BLOOD ORDERABLES Final Re sult [facility] [address] [facility] Department [place] [address] * (ABNORMAL) Comprehensive metabolic panel (10/27/2022 9:47 AM CDT) Pathologist [facility] Sodium 143 135 - 145 mmol/L [facility] Potassium, pl 4.3 3.3 - 4.9 mmol/L [facility] Chloride 106 97 - 110 mmol/L [facility] CO2 26 22 - 32 mmol/L [facility] Anion gap 11 2 - 15 mmol/L [facility] BUN 31(H) 8 - 25 mg/dL [facility] Creatinine 2.10(H) 0.60 - 1.10 mg/dL [facility] Glucose 184 70 - 199 mg/dL [facility] Comment: Interpretive Data Fasting glucose >/= [...] 2022. Calcium 9.0 8.5 - 10.3 mg/dL [facility] Bilirubin, total <0.2 0.1 - 1.2 mg/dL [facility] Protein, pl 6.7 6.5 - 8.5 g/dL [facility] Albumin 3.2(L) 3.5 - 5.0 g/dL [facility] Alk phos 126 40 - 130 Units/L [facility] ALT 17 7 - 45 Units/L [facility] AST 17 10 - 45 Units/L [facility] Blood 10/27/2022 9:47 AM CDT 10/27/2022 9:51 AM CDT Markie Ryan MD LAB BLOOD ORDERABLES Final Re sult Performing Organization Address City/[facility]/ZIP Co de Phone Number NILSA [address] [facility] [place] [address] * (ABNORMAL) CBC with auto differential (10/27/2022 9:47 AM CDT) WBC 8.5 3.8 - 9.9 K/cumm [facility] Hgb 9.2(L) 11.9 - 15.5 g/dL [facility] Hct 29.4(L) 35.6 - 45.5 % [facility] Plt 292 150 - 400 K/cumm [facility] MPV 10.3 9.1 - 12.3 fL [facility] RBC 3.02(L) 3.90 - 5.20 M/cumm [facility] MCV 97.4(H) 81.3 - 96.4 fL [facility] MCH 30.5 27.1 - 33.3 pg [facility] MCHC 31.3(L) 32.3 - 35.7 g/dL [facility] RDW CV 16.1(H) 11.1 - 14.9 % [facility] RDW SD 57.1(H) 35.7 - 48.1 fL [facility] NRBC abs 0.00 0.00 - 0.01 K/cumm [facility] Blood 10/27/2022 9:47 AM CDT 10/27/2022 9:51 AM CDT Narrative [facility] - 10/27/2022 9:54 AM CDT ASK EU TO VERIFY THESE INSTRUCTIONS Draw PRIOR TO FIRST DOSE and SUBSEQUENT doses of erythropoietin. Markie Ryan MD LAB BLOOD ORDERABLES Final Re sult Performing Organization Address City/[facility]/ZIP Co de Phone Number NILSA [address] [facility] [place] [address] documented in this encounter Visit Diagnoses Diagnosis [...] subcutaneous, Every 2 weeks, First dose on 10/27/22 at 1015, Refrigerate, Indications: anemia in ckd stage 4Indications:anemia in ckd stage 4 Given 10/27/2022 9:54 AM CDT 20,000 Units Left Lower Abdomen documented in this encounter Care Teams Firer Automatic Stoker Relationship Specialty Start Date End Date Cherelle Corcoran MD PCP - General Family Medicine 08/30/19 Mark Queen MD Consulting Physician Infectious Diseases 01/10/20 Anam Costa LCSW Hat Steamer 08/08/22 02/18/23 Melania Lee RN [address] [place] [address] [address] [place] [address] Marker Delivery 08/22/22 12/07/22 documented as of this encounter
--- OUTSIDE RECORDS SUMMARY | 2024-07-04 04:11 | XMS_ITS | Encounter Summary ---
Author Organization [facility] Address [address] [place] [address] Care Team Providers Care Quantitative Strategy Analyst Name Role Phone Cherelle Corcoran MD Primary Care Pro vider Mark Queen MD Unavailable [phone] Anam CostaW Unavailable Unavailabl Melania Moncada RN Unavailable [phone] Reason for Visit * Reason Onset Date Comments Medical Question/Miscellaneous 10/27/2022 Encounter Details Date Type Department Care Team ([facility] st Contact Info) Description 10/27/2022 Telephone [facility] Primary Care [address] [facility] [facility] [address] [place] [address] Cherelle Corcoran MD [facility] [address] Medical Question/Miscellaneous Social History Tobacco [...] [place] [facility] [place] (including now)? No 10/03/2022 Comments No Sex and Gender Information Value Date Recorded Sex Assigned at Not on file Legal Sex Female 9:03 AM PORTFOLIO MGR Gender Identity Female 02/08/2020 6:39 PM CDT Sexual Orientation Not on file documented as of this encounter Miscellaneous Notes * Telephone Encounter - Yoly Elkins LPN - 2022 10:33 AM CDT Spoke to patient's daughter, advised of Dr. Corcoran's recommendations, appointment scheduled. * Telephone Encounter - Cherelle Corcoran MD - 10/27/2022 11:52 AM CDT Ultrasound ordered to evaluate if clot still present, advise they call to schedule * Telephone Encounter - Dana Mike MA - 10/27/2022 9:43 AM CDT Medical Question/Miscellaneous Caller???s Concern: pt's daughter, Areli (on [employer]) wanting to know if pt needs to continue with Eliquis. Pt has blood clots in her legs. Please advise. Caller???s Call back #: [phone] Does message need to be routed? Yes-Action Needed documented in this encounter Plan of Treatment Upcoming Encounters Date Type Department Care Team (Latest Contact Info) Description 07/13/2024 9:00 AM PORTFOLIO MGR Hospital Encounter [facility] [address] [place] [address] Jaya Grier MD [address] [facility] [address] [place] [address] 07/13/2024 9:00 AM PORTFOLIO MGR - 07/13/2024 9:30 AM PORTFOLIO MGR Surgery [facility] [address] [place] [address] Jaya Grier MD [address] [facility] [address] [place] [address] ESOPHAGOGASTRODUODENOSCOPY Scheduled Procedures Name Priority Associated Diagnoses Date/Ti me ESOPHAGOGASTRODUODENOSCOPY Anemia, unspecified type Gastritis without bleeding, unspecified chronicity, unspecified gastritis type 07/13/2024 9:00 AM PORTFOLIO MGR COLONOSCOPY Iron deficiency anemia due to chronic blood loss documented as of this encounter Visit Diagnoses Not on filedocumented in this encounter Care Teams Quantitative Strategy Analyst Relationship Specialty Start Date End Date Cherelle Corcoran MD PCP - General Family Medicine 08/30/19 Mark Queen MD Consulting Physician Infectious Diseases 01/10/20 Anam Costa LCSW Plant Chief 08/08/22 02/18/23 Melania Lee RN [address] [place] [address] [address] [place] [address] Cutting And Printing Machine Operator 08/22/22 12/07/22 documented as of this encounter
--- OUTSIDE RECORDS SUMMARY | 2024-07-04 04:11 | XMS_ITS | Encounter Summary ---
Author Organization [facility] Address [address] [place] [address] Care Team Providers Care Commissary Representative Name Role Phone Cherelle Corcoran MD Primary Care Pro vider Mark Queen MD Unavailable [phone] Anam Costa LCSW Unavailable UnavailMelania Rae RN Unavailable [phone] Encounter Details Date Type Department Care Team (Late st Contact Info) Description 09/11/2022 12:15 PM CDT Office Visit [facility] [address] [place] [id number] Ulcer of toe of right foot, with fat layer exposed (HCC) (Primary Dx) Social History Tobacco Use [...] week 08/08/2022 How often do you attend [facility] or taoism services? More than 4 times [...] on file Legal Sex Female 9:03 AM PHILANTHROPY OFFICER Gender Identity Female 02/08/2020 6:39 PM CDT Sexual Orientation Not on file documented as of this encounter Plan of Treatment Upcoming Encounters Date Type Department Care Team (Latest Contact Info) Description 07/13/2024 9:00 AM PHILANTHROPY OFFICER Hospital Encounter [facility] [address] [place] [address] Jaya Grier MD [address] [facility] [address] [place] [address] 07/13/2024 9:00 AM PHILANTHROPY OFFICER - 07/13/2024 9:30 AM PHILANTHROPY OFFICER Surgery [facility] [address] [place] [address] Jaya Grier MD [address] [facility] [address] [place] [address] ESOPHAGOGASTRODUODENOSCOPY Scheduled Procedures Name Priority Associated Diagnoses Date/Ti ak ESOPHAGOGASTRODUODENOSCOPY Anemia, unspecified type Gastritis without bleeding, unspecified chronicity, unspecified gastritis type 07/13/2024 9:00 AM PHILANTHROPY OFFICER COLONOSCOPY Iron deficiency anemia due to chronic blood loss documented as of this encounter Procedures Procedure Name Priority Date/Time Associated Diagnosis Comments TISSUE AEROBIC CULTURE AND GRAM STAIN Routine 09/11/2022 1:21 PM CDT Ulcer of toe of right foot, with fat layer exposed (HCC) documented in this encounter Results * Tissue aerobic culture and gram stain Tissue Toe, great, right (09/11/2022 1:21 PM CDT) Direct Specimen Exam Stain: No polymorphonuclear leukocytes seen. No organisms seen. NILSA LOWE (TORRI) Comment:Testing performed by : [facility], [address] [facility]., [address] Report Final Report: Few Mixed skin microorganisms. NILSA LOWE (TORRI) Comment:Testing performed by : [facility], [address] [facility] [place]., [address] Organism MIXED SKIN MICROORGANISMS. NILSA LOWE (TORRI) Tissue (Toe, great, right) 09/11/2022 1:21 PM CDT 09/11/2022 5:25 PM CDT Narrative NILSA LOWE (TORRI) - 09/16/2022 6:22 AM CDT Right great toe Testing performed by [facility] ([phone]) Specimens submitted from normally sterile body sites will have all bacterial morphotypes identified. Specimens that contain grossly mixed radha and/or are from body sites that are not normally sterile will be examined for Staphylococcus aureus, Pseudomonas aeruginosa, beta-hemolytic strep, vancomycin-resistant Enterococcus and fungus. If any of these are isolated, the organism will be reported. Current interpretive data was last revised on 2016. Anat Pelayo DPM LAB MICROBIOLOGY - GENERAL ORDERABLES Final Result NILSA WANGN) [address] [facility] Department [place] [address] documented in this encounter Visit Diagnoses Diagnosis Ulcer of toe of right foot, with fat layer exposed (HCC)- Primary Anemia, unspecified type Gastritis without bleeding, unspecified chronicity, unspecified gastritis type documented in this encounter Care Teams Commissary Representative Relationship Specialty Start Date End Date Cherelle Corcoran MD PCP - General Family Medicine 08/30/19 Mark Queen MD Consulting Physician Infectious Diseases 01/10/20 Anam Costa LCSW Marine Firefighter 08/08/22 02/18/23 Samples, Melania Joel RN [address] [place] [address] [place] [address] Cap Sewer 08/22/22 12/07/22 documented as of this encounter
--- OUTSIDE RECORDS SUMMARY | 2024-07-04 04:11 | XMS_ITS | Encounter Summary ---
Author Organization [facility] Address [address] [place] [address] Care Team Providers Care Heel Seat Sander Name Role Phone Cherelle Corcoran MD Primary Care Pro vider Mark Queen MD Unavailable [phone]- [phone] Anam Costa LCSW Unavailable Unavailabl Melania Moncada RN Unavailable [phone] Encounter Details Date Type Department Care Team (Late st Contact Info) Description 09/30/2022 Documentation [facility] OP Occup Therapy [address] [place] [address] Jerel Cardenas, OT Social History Tobacco [...] week 08/08/2022 How often do you attend [facility] or rastafari services? More than 4 [...] in a skilled nursing (including now)? No 08/08/2022 Comments No Sex and Gender Information Value Date Recorded Sex Assigned at Not on file Legal Sex Female 9:03 AM WAGON DRILL OPERATOR Gender Identity Female 02/08/2020 6:39 PM CDT Sexual Orientation Not on file documented as of this encounter Progress Notes * Jerel Cardenas OT - 09/30/2022 3:53 PM CDT No call/no show 09/30/2022 CG. documented in this encounter Plan of Treatment Upcoming Encounters Date Type Department Care Team (Latest Contact Info) Description 07/13/2024 9:00 AM WAGON DRILL OPERATOR Hospital Encounter [facility] [address] [place] [address] Jaya Grier MD [address] [place] [address] [address] [place] [address] 07/13/2024 9:00 AM WAGON DRILL OPERATOR - 07/13/2024 9:30 AM WAGON DRILL OPERATOR Surgery [facility] [address] [place] [address] Jaya Grier MD [address] [place] [address] [address] [place] [address] ESOPHAGOGASTRODUODENOSCOPY Scheduled Procedures Name Priority Associated Diagnoses Date/Ti wy ESOPHAGOGASTRODUODENOSCOPY Anemia, unspecified type Gastritis without bleeding, unspecified chronicity, unspecified gastritis type 07/13/2024 9:00 AM WAGON DRILL OPERATOR COLONOSCOPY Iron deficiency anemia due to chronic blood loss documented as of this encounter Visit Diagnoses Not on filedocumented in this encounter Care Teams Heel Seat Sander Relationship Specialty Start Date End Date Cherelle Corcoran MD PCP - General Family Medicine 08/30/19 Mark Queen MD Consulting Physician Infectious Diseases 01/10/20 Anam Costa LCSW Padder Cushion 08/08/22 02/18/23 Melania Lee, RN [address] [place] [address] [address] [place] [address] Painting Manager 08/22/22 12/07/22 documented as of this encounter
--- OUTSIDE RECORDS SUMMARY | 2024-07-04 04:11 | XMS_ITS | Encounter Summary ---
Author Organization [facility] Address [address] [facility] [address] [place] [address] Care Team Providers Care Lap Hand Tool Name Role Phone Cherelle Corcoran MD Primary Care Pro vider Mark Queen MD Unavailable [phone] Anam CostaW Unavailable UnavailMelania Rae RN Unavailable [phone] Encounter Details Date Type Department Care Team (Late st Contact Info) Description 10/10/2022 Telephone [facility] Nephrology at [address] [place] [address] [place] [address] [place] [address] [address] [place] [address] Social History Tobacco Use Types Packs/Day Years [...] in a long term (including now)? No 10/03/2022 Comments No Sex and Gender Information Value Date Recorded Sex Assigned at Not on file Legal Sex Female 9:03 AM HAND EDGER Gender Identity Female 02/08/2020 6:39 PM CDT Sexual Orientation Not on file documented as of this encounter Miscellaneous Notes * Telephone Encounter - Mihaela Mejia MA - 10/10/2022 2:41 PM CDT Spoke to pt's daughter Areli, who takes care of her medical appointments. Orders placed and OPS notified. * Telephone Encounter - Mihaela Mejia MA - 10/10/2022 2:41 PM CDT ----- Message from Markie Ryan MD sent at 10/10/2022 2:27 PM CDT ----- Creatinine stable, hemoglobin 8.9 with adequate iron stores. Please set her up for Retacrit 85234 units every 2 weeks with routine labs and repeat a BMP with H&H draw in 3 months please documented in this encounter Plan of Treatment Upcoming Encounters Date Type Department Care Team (Latest Contact Info) Description 07/13/2024 9:00 AM HAND EDGER Hospital Encounter [facility] [address] [place] [address] Jaya Grier MD [address] [place] [address] [address] [place] [address] 07/13/2024 9:00 AM HAND EDGER - 07/13/2024 9:30 AM HAND EDGER Surgery [facility] [address] [place] [address] Jaya Grier MD [facility] [facility] [address] [place] [address] ESOPHAGOGASTRODUODENOSCOPY Scheduled Procedures Name Priority Associated Diagnoses Date/Ti me ESOPHAGOGASTRODUODENOSCOPY Anemia, unspecified type Gastritis without bleeding, unspecified chronicity, unspecified gastritis type 07/13/2024 9:00 AM HAND EDGER COLONOSCOPY Iron deficiency anemia due to chronic blood loss documented as of this encounter Visit Diagnoses Not on filedocumented in this encounter Care Teams Lap Hand Tool Relationship Specialty Start Date End Date Cherelle Corcoran MD PCP - General Family Medicine 08/30/19 Mark Queen MD Consulting Physician Infectious Diseases 01/10/20 Anam Costa LCSW Analysis Intern 08/08/22 02/18/23 Melania Lee RN [address] [place] [address] [address] [place] [address] It Professional 08/22/22 12/07/22 documented as of this encounter
--- OUTSIDE RECORDS SUMMARY | 2024-07-04 04:12 | XMS_ITS | Encounter Summary ---
Author Organization [facility] Address [address] [place] [address] Care Team Providers Care Hydraulic Miner Name Role Phone Cherelle Corcoran MD Primary Care Pro vider Mark Queen MD Unavailable [phone] Samples, Melania Joel RN Unavailable [phone] Anam Costa LCSW Unavailable Unavailabl e Samples, Melania Joel RN Unavailable Reason for Visit * Reason Onset Date Comments Parameters for Carvedilol 08/08/2022 Encounter Details Date Type Department Care Team (Late st Contact Info) Description 08/08/2022 Telephone [facility] Accountable Care Organization [address] [place] [address] Samples, Melania Joel RN [address] [facility] [address] [place] [address] Parameters for Carvedilol Social History Tobacco Use Types Packs/Day Years [...] slept in a fci (including now)? No 08/08/2022 Comments No Sex and Gender Information Value Date Recorded Sex Assigned at Not on file Legal Sex Female 9:03 AM CHILD PROTECTION SPECIALIST Gender Identity Female 02/08/2020 6:39 PM CDT Sexual Orientation Not on file documented as of this encounter Miscellaneous Notes * Telephone Encounter - Melania Lee RN - 08/08/2022 9:36 AM CHILD PROTECTION SPECIALIST This [facility] Complex Care pt was admitted to for UTI/weakness. She has JOY w/ you on 08/14. Upon DC they changed her dose of carvedilol. Dtr notes her BP has been low, and she is concerned ifdose is too high/safe. She is wanting some parameters on when to hold it if her BP is low/too low. Thank you, Melania IRELAND, RN, [facility] - ACO Family Service Assistant [phone] D PROTECTION SPECIALIST documented in this encounter Plan of Treatment Upcoming Encounters Date Type Department Care Team (Latest Contact Info) Description 07/13/2024 9:00 AM CHILD PROTECTION SPECIALIST Hospital Encounter [facility] [address] [place] [address] Jaya Grier MD [facility] [facility] [address] [place] [address] 07/13/2024 9:00 AM CHILD PROTECTION SPECIALIST - 07/13/2024 9:30 AM CHILD PROTECTION SPECIALIST Surgery [facility] [address] [place] [address] Jaya Grier MD [address] [facility] [address] [place] [address] ESOPHAGOGASTRODUODENOSCOPY Scheduled Procedures Name Priority Associated Diagnoses Date/Ti me ESOPHAGOGASTRODUODENOSCOPY Anemia, unspecified type Gastritis without bleeding, unspecified chronicity, unspecified gastritis type 07/13/2024 9:00 AM CHILD PROTECTION SPECIALIST COLONOSCOPY Iron deficiency anemia due to chronic blood loss documented as of this encounter Visit Diagnoses Not on filedocumented in this encounter Care Teams Hydraulic Miner Relationship Specialty Start Date End Date Cherelle Corcoran MD PCP - General Family Medicine 08/30/19 Mark Queen MD Consulting Physician Infectious Diseases 01/10/20 Samples, Melania Joel RN [address] [place] [address] [address] [place] [address] Family Service Assistant 07/22/22 08/21/22 Anam Costa LCSW [address] [place] [address] [address] [place] [address] Sanitary Engineering Teacher 08/08/22 02/18/23 Samples, Melania Joel RN [address] [place] [address] [address] [place] [address] Family Service Assistant 08/22/22 12/07/22 documented as of this encounter
--- OUTSIDE RECORDS SUMMARY | 2024-07-04 04:12 | XMS_ITS | Encounter Summary ---
Author Organization [facility] Healthcare Address [address] [place] [address] Care Team Providers Care Inserter Name Role Phone Cherelle Corcoran MD Primary Care Pro vider Mark Queen MD Unavailable + [phone] Brandie Callejas Unavailable Unavail able Reason for Visit * Reason Comments Weakness - Generalized Urinary Problem * Auth/Cert Specialty Diagnoses / Procedures Referred By Maryse lama Referred To Contact Diagnoses Acute cystitis without hematuria Procedures Referral ID Status Reason Start Date Expiration Date Visits Re quested Visits Authorized [id number] 1 1 Encounter Details Date Type Department Care Team (Latest Contact Info) Description 06/19/2022 2:46 PM HEEL WASHER STRINGING MACHINE OPERATOR - 06/22/2022 2:42 PM HEEL WASHER STRINGING MACHINE OPERATOR Hospital Encounter [facility] 5 Med Surg [facility]4 [place] [address] Darryl Jones II, MD [address] [place] [address] [place] [address] Nikhil Weiss DO [address] [place] [address] [place] [address] Cara Douglas MD [address] [place] [address] [place] [address] Acute cystitis without hematuria (Primary Dx); Type 2 diabetes mellitus with other specified complication, with long-term current use of insulin (HCC); Parkinson's disease (CMS/HCC) (HCC); Generalized weakness; Physical deconditioning Discharge Disposition: Discharge to home or self [...] neighbors? More than three times a week 09/10/2021 How often do you get togethe r with friends or relatives? More than three times a week 09/10/2021 How often do you attend chur or evangelical services? Never 09/10/2021 Do you belong to any clubs o r organizations such as mormonism groups, unions, fraternal or athletic groups, or school groups? No 09/10/2021 How often do you attend meet ings of the clubs or organizations you belong to? Never 09/10/2021 Are you , , di vorced, , never , or living with a partner? 09/10/2021 AUDIT-C Answer Date Recorded Q1: How often [...] care, and heating? Not hard at all 09/10/2021 PHQ-2 Answer Date Recorded PHQ-2 Total Score (If total score is 3 or more points, staff should administer the PHQ-9) 0 06/09/2022 Hunger Vital Sign Answer Date Recorded Within the past 12 months, y ou worried that your food would run out before you got the money to buy more. Never true 09/11/19 22 Within the past 12 months, t he food you bought just didn't last and you didn't have money to get more. Never true 09/10/2021 PRAPARE - Transportation Answer Date Re corded In the past 12 months, has l ack of transportation kept you from medical appointments or from getting medications? No 08/21 In the past 12 months, has l ack of transportation kept you from meetings, work, or from getting things needed for daily living? No 09/10/2021 Housing Stability Vital Sign Answer Fuentes e Recorded In the last 12 months, was t here a time when you were not able to pay the mortgage or rent on time? No 09/10/2021 In the last 12 months, how many places have you lived? 2 09/10/2021 In the last 12 months, was t here a time when you did not have a steady place to sleep or slept in a half-way (including now)? No 09/10/2021 Comments No Sex and Gender Information Value Date Recorded Sex Assigned at Not on file Legal Sex Female 9:03 AM HEEL WASHER STRINGING MACHINE OPERATOR Gender Identity Female 02/08/2020 6:39 PM CDT Sexual Orientation Not on file documented as of this encounter Last Filed Vital Signs Vital Sign Reading Time Taken Comments Blood Pressure 162/70 06/22/2022 8:08 AM HEEL WASHER STRINGING MACHINE OPERATOR Pulse 80 06/22/2022 8:08 AM HEEL WASHER STRINGING MACHINE OPERATOR Temperature 37.1 ??C (98.8 ??F) 06/22/2022 8:08 AM CS T Respiratory Rate 18 06/22/2022 8:08 AM HEEL WASHER STRINGING MACHINE OPERATOR Oxygen Saturation 92% 06/22/2022 8:08 AM HEEL WASHER STRINGING MACHINE OPERATOR Inhaled Oxygen Concentration - - Weight 71 kg (156 lb 8 oz) 06/20/2022 12:[address] Height - - Body Mass Index 28.62 06/17/2022 4:02 PM HEEL WASHER STRINGING MACHINE OPERATOR documented in this encounter Discharge Summaries * Cara Douglas MD - 06/22/2022 9:01 AM CST Inpatient Discharge Summary Patient Name - Sixto Chakraborty Patient Age - 71 yrs Patient - [id number] CSN - [id number] Document Creation Date: 06/22/2022 Admitting Provider, : Cara Douglas MD Discharge Provider, MD: Cara Douglas MD Primary Care Physician at Discharge: Cherelle Corcoran MD [phone] Admission Date: 06/19/2022 Discharge Date/time: 06/22/2022 Admission Location: [facility] LOS - LOS: 3 days DETAILS OF HOSPITAL STAY Hospital Problems/Diagnoses STEFANO superimposed on Chronic kidney disease stage 2 Reason for Hospitalization: Acute urinary tract infection: This was food out after further workup. Ptosis: Resolved Acute kidney injury superimposed on chronic kidney disease Chronic anemia Type 2 diabetes Parkinson's disease History of schizoaffective disorder. Hospital Course: This is 71-year-old female medical history, fatigue and generalized weakness for last several days. UA consistent with acute UTI white count mildly elevated at 11,000 thousand. Patient started on IV Rocephin. Patient's creatinine is mildly elevated in setting of chronic kidney disease likely secondary to volume depletion. CT of abdomen was obtained in the ED which was unremarkable. Patient admitted initial assessment of acute UTI, leukocytosis, STEFANO superimposed on chronic kidney disease. Started on IV Rocephin. Home medications were resumed. Lasix and arbs were held at time of admission due to STEFANO superimposed on chronic kidney disease. Gentle IV hydration was continued. Urine culture: Showed insignificant bacterial growth. UTI was ruled out after workup. Antibiotics were discontinued. Creatinine is improved with IV hydration. Creatinine appears to be at baseline. Patient is hemodynamically stable for discharge. Discharge Details Physical Exam at Discharge: Discharge Condition: stable Pulse: 80 Resp: 18 BP: 162/70 Temp: 37.1 ??C (98.8 ??F) Weight: 71 kg (156 lb 8 oz) Pertinent Exam Findings at Discharge: Physical Exam: General Exam: No acute distress Resting comfortably in bed Not appear to be in pain. Skin: Dry, Warm. ABSENT: Jaundice, Rash Head: Atraumatic, Normocephalic Ears, Nose, Mouth, Throat: Ext. ears & nose normal, Moist mucous membranes Neck: Supple Cardiovascular: Normal range, Regular rhythm, S1S2 normal. ABSENT: Edema Respiratory: Effort is normal, no wheezing Abdomen: Bowel sounds present, Soft. ABSENT: Mass, Tenderness, Distention Neurological: No gross deficit Resting tremor Psychiatric: Affect appropriate, Alert Psychiatric - Orientation: Oriented to: Time, Place, Person Discharge Disposition: Discharge to home or self residential Code Status at Discharge: Full Code Active Issues & Recommended Plan for Follow-up: Allergies: Patient has no known allergies. Discharge Medications: Your medication list CONTINUE taking these medications [...] 1 mg tablet Commonly known as: COGENTIN 1 mg, oral, Nightly Blood Pressure Cuff misc Generic drug: miscellaneous medical supply Use to check blood pressure daily blood pressure monitor kit Check BP as instructed capsaicin 0.025 % cream Commonly known as: ZOSTRIX topical, 2 times daily carvediloL 3.125 mg tablet Commonly known as: COREG 3.125 mg, oral, 2 times daily with meals (bkfst, dinner) conner.stocking,thigh,reg,med misc Wear as much as possible dulaglutide 1.5 mg/0.5 mL pen injector Commonly known as: TRULICITY 1.5 mg, subcutaneous, Every 7 days famotidine 10 mg tablet Commonly known as: PEPCID 10 mg, oral, Nightly ferrous sulfate 325 mg (65 mg of elemental iron) tablet 325 mg, oral, Daily with breakfast FreeStyle Madhav 2 Given misc Doctor's comments: May or may not need Generic drug: flash glucose scanning reader Use to continually monitor glucose FreeStyle Madhav 2 Sensor kit Doctor's comments: Type 2 diabetic, on 2 insulin Generic drug: flash glucose sensor Use to continually monitor glucose, change every 14 days insulin glargine 100 unit/mL (3 mL) pen for injection Commonly known as: LANTUS, BASAGLAR, SEMGLEE 34 Units, subcutaneous, Nightly INSULIN SYRINGE-NEEDLE U-100 MISC 3 times a day lancets misc Check blood sugar up to 3 times a day lidocaine 5 % Commonly known as: LIDODERM 1 patch, transdermal, Daily, apply on patch to the painful area once every day and leave on for 12 hours then off for 12 hours. Rx# [id number] in home 05/02/22 per Hanny Cruz PTA entered Jessica Swanson RN 05/04/22 multivitamin with minerals tablet 1 tablet, oral, Daily OneTouch Verio test strips strip Doctor's comments: Patient requests 90 days supply Generic drug: blood glucose diagnostic TEST 3 TO 4 TIMES DAILY pregabalin 150 mg capsule Commonly known as: LYRICA 150 mg, oral, Nightly risperiDONE 2 mg tablet Doctor's comments: Discontinue Haldol Commonly known as: RisperDAL 2 mg, oral, Nightly valsartan 40 mg tablet Commonly known as: DIOVAN 40 mg, oral, Daily ASK your doctor about these medications Instructions Last Dose Given Next Dose Due furosemide 40 mg tablet Commonly known as: LASIX 40 mg, oral, 2 times daily insulin lispro 100 unit/mL pen for injection Commonly known as: HumaLOG, ADMELOG 12 Units, subcutaneous, 3 times daily with meals ketoconazole 2 % cream Commonly known as: NIZORAL topical, 2 times daily polyethylene glycol 17 gram packet Commonly known as: MIRALAX 17 g, oral, Daily Time Spent in Discharge Process: I have spent 33 minutes on discharge planning activities. Test Results Pending at Discharge (If Blank, None Found): Pending Labs Order Current Status Basic metabolic panel In process Hemoglobin A1c In process Operative Procedures Performed (If Blank, None Found): Outpatient Follow-Up: Future Appointments Date Time Provider Department Center 09/09/2022 4:15 PM Cherelle Corcoran MD SH 230 09/10/2022 1:45 PM Markie Ryan MD [id number] Specialty 09/16/2022 2:20 PM Anant Kauffman MD EML CAM 5C HEATH IM EML 12/10/2022 1:15 PM Santo Vail MD MB CARD E Specialty Contact Information for Follow-ups Cherelle Corcoran MD Specialty: Family Medicine Relationship: PCP - General [address] [place] [id number] Next Steps: Follow up Please schedule an appointment with the following provider(s): Cherelle Corcoran MD [address] [place], [place] [id number] Follow up ANCILLARY INFORMATION Other Procedures & Diagnostic Tests: CT Abdomen Pelvis WO Contrast Result Date: 06/19/2022 EXAM DESCRIPTION: CT ABDOMEN PELVIS WO CONTRAST REASON FOR STUDY: UTI, worsening renal function, decreased urine output. generalized weakness for 3 days. Patient also states that she has been urinating a lot a going to the bathroom a lot more than normal TECHNIQUE: CT scan of the abdomen and pelvisperformed without intravenous and without oral contrast using helical scanning technique. Reconstructed coronal and sagittal MPR images reviewed. All images stored on PACS. Automated exposure controlwas used as a dose optimization technique for this examination. COMPARISON: 01/19/2017 FINDINGS: The sensitivity for detection of visceral lesions is diminished without the use of intravenous contrast. LOWER CHEST: No significant pulmonary abnormalities. No effusion. LIVER: The liver is normal in size. Chronic undulating surface superior may represent chronic underlying liver disease. GALLBLADDER: Gallbladder is partially distended. No CT evidence of acute cholecystitis. BILE DUCTS: No intrahepatic or extrahepatic ductal dilatation. SPLEEN: Spleen is normal in size. PANCREAS: Moderate atrophyof the pancreas. No significant peripancreatic stranding or main ductal dilatation. ADRENALS: Normal. KIDNEYS/URINARY TRACT: The kidneys are normal in size. No hydronephrosis. No stone. No significant perinephric stranding. Urinary bladder is distended. No substantial thickening or stranding. GI: Sigmoid diverticulosis without CT evidence of diverticulitis. Stool throughout the colon which appears nondilated. The appendix is nondilated. The small bowel is nondilated without evidence of bowel obstruction. The stomach is distended with ingested material. PERITONEUM: Laxity of the anterior abdominal wall with rectus diastasis. No free air or ascites is seen. No mesenteric lymphadenopathy RETROPERITONEUM: No retroperitoneal or inguinal lymphadenopathy. REPRODUCTIVE: No significant abnormality. VASCULATURE: Aorta is normal caliber. MUSCULOSKELETAL: Chronic cutaneous/subcutaneous nodule within the lower midabdomen slightly increased in size compared to 2017, likely benign. This measures 13 x 10 mm, previously 11 x 9 mm (151). No acute fracture seen. Stable irregularity and sclerosis of the inferior endplate of L4 compared to a lumbar spine CT dated 08/08/2021. OTHER: No other abnormality. IMPRESSION: 1. No gross CT finding to explain the patient's symptoms. REFERENCE: Unless otherwise specified, no follow-up imaging is recommended for incidental renal and adrenal lesions per consensus recommendations based on imaging criteria. Further lab evaluation could be pursued based on clinical findings. Management of the Incidental Renal Mass on CT: A White Paper of the ACR Incidental Findings Committee. J Am Yonny Radiol. 2018 Jul;15(2):264-273. Management of Incidental Adrenal Masses: A White Paper of the ACR Incidental Findings Committee. J Am Yonny Radiol. 2017 Jan;14(8):7696-1860. THIS IS AN ELECTRONICALLY VERIFIED FINAL REPORT 06/19/2022 9:29 PM - Electronically signed by Shane Miller M.D. AG: AG Report ID: [id number] Reading Location: [id number] XR Chest 1 View Result Date: 06/20/2022 EXAM DESCRIPTION: XR CHEST 1 VIEW REASON FOR STUDY: Generalized weakness for 3 days. TECHNIQUE: AP radiographic view of the chest acquired. COMPARISON: 04/29/2022 FINDINGS: LUNGS/PLEURA: No focal consolidation or pneumothorax. No pleural effusion. HEART/MEDIASTINUM: Heart size is normal. Normal mediastinal and hilar contours. HARDWARE/LINES/TUBES: None. BONES: Decreased bilateral subacromial space. No acute osseous findings. OTHER: No other significant finding. IMPRESSION: No acute cardiopulmonary abnormality. THIS IS AN ELECTRONICALLY VERIFIED FINAL REPORT 06/20/2022 12:08 AM - Electronically signed by Larry Perez M.D. ML: ML Report ID: [id number] Reading Location: [id number] Transthoracic Echo (TTE) Complete W Doppler/CF Result Date: 06/20/2022 Adult Echocardiogram + + :Name: SIXTO CHAKRABORTY Study Date: 06/20/2022 Status: [facility] : : Patient Location: [address]^[id number]^MHeight: 62 in : : Weight: 155 lbBP: 127/62 mmHg: :: 1950 Gender: Female BSA: 1.7 m2 : :Reason For Study: SOB : :Ordering Physician: LEONORA, : :NIKHIL : : : :Performed By: Ana Luisa : :Loco RCS : + ---+ Procedure A two-dimensional transthoracic echocardiogram with color flow and Doppler was performed. Left VentricleThe left ventricle is normal in size. There is mild concentric left ventricular hypertrophy. Ejection Fraction = 60- 65%. The left ventricular wall motion is normal. Right Ventricle The right ventricle is grossly normal size. There is normal right ventricular wall thickness. The right ventricular systolic function is normal. The right ventricular wall motion is normal. Atria The left atrium is mildly dilated. Right atrial size is normal. The interatrial septum is intact with no evidence for an atrial septal defect. Mitral Valve The mitral valve leaflets appear normal. There is no evidence of stenosis, fluttering, or prolapse. There is trace mitral regurgitation. Tricuspid Valve The tricuspidvalve is normal. There is trace tricuspid regurgitation. Aortic Valve Aortic valve structure is normal. No aortic stenosis . Pulmonic Valve The pulmonic valve is not well seen, but is grossly normal.Trace pulmonic valvular regurgitation. Great Vessels The aortic root is normal size. The pulmonary artery is normal size. The aortic arch is normal. IVC appears normal in size. Pericardium Trace pericardial effusion. Anterior pericardial fat pad noted. Diastology E/E prime ratio is 8 -15 which is in the indeterminate zone. Interpretation Summary Ejection Fraction = 60-65%. The left atrium is mildly dilated. There is trace tricuspid regurgitation. No aortic stenosis . Trace pulmonic valvular regurgitation. Anterior pericardial fat pad noted. + + :Measurements with Normals : :IVSd: (0.6-1.2 LVIDd: (3.5-5.7 : :0.83 cmcm) 4.0 cm cm) : :LVPWd: (0.6-1.1 LVIDs: (3.1-4.6 LA dimension: (1.9-4.0 : :0.98 cm cm) 2.5 cm cm)3.3 cm cm) : + + MMode/2D Measurements & Calculations LVPWs: 0.59 cm FS: 37.1 % LVOT diam: 1.9 cm EDV(Teich): 67.9 ml LVOT area: 2.8 cm2 ESV(Teich): 22.0 ml Doppler Measurements & Calculations MV E max leonard: Ao V2 max: LV V1 max PG: PA V2 max: 80.1 cm/sec 145.0 cm/sec 6.1 mmHg 145.0 cm/sec MV A max leonard: Ao max P.4 mmHgLV V1 max: PA max P.4 mmHg 108.0 cm/sec ALEXEY(V,D): 2.4 cm2 123.0 cm/sec MV E/A: 0.74 TR max leonard: 236.0 cm/sec TR max P.3 mmHg Electronically signed by: Juan Mathur MD 06/20/2022 05:33 PM Recent Labs: Recent Labs Lab Units 06/22/22 0759 06/21/22 0855 06/20/22 0508 WBC K/cumm 8.4 8.0 8.9 HEMOGLOBIN g/dL 8.4* 8.7* 8.4* HEMATOCRIT % 26.5* 27.7* 26.9* PLATELETS K/cumm 259 276 256 Recent Labs Lab Units 06/22/22 07506/21/22 0855 06/20/22 0508 WBC K/cumm 8.4 8.0 8.9 HEMOGLOBIN g/dL 8.4* 8.7* 8.4* HEMATOCRIT % 26.5* 27.7* 26.9* PLATELETS K/cumm 259 276 256 NEUTROS PCT % 56.6 58.2 63.3 LYMPHS PCT % 34.3 32.1 27.4 MONOS PCT % 6.8 7.0 7.3 EOS PCT % 1.9 1.9 1.7 Recent Labs Lab Units 06/22/22 0833 06/21/22 1453 06/21/22 0855 06/20/22 0802 06/20/22 0508 06/19/22 1604 06/19/22 1132 SODIUM mmol/L -- -- 143 -- 141 -- 140 POTASSIUM PLASMA mmol/L -- -- 4.1 -- 3.7 -- 4.4 CHLORIDE mmol/L -- -- 109 -- 104 -- 104 CO2 mmol/L -- -- 25 -- 27 -- 26 BUN SERUM mg/dL -- -- 47* -- 56* -- 56* CREATININE mg/dL -- -- 1.90* -- 2.30* -- 2.30* [id number] mL/min/1.73 m2 -- -- 28 -- 22 -- 22 GLUCOSE mg/dL -- -- 135 -- 141 -- 209* POC GLUCOSE MONITOR mg/dL 164 < > -- < > -- < > -- CALCIUM mg/dL -- -- 8.8 -- 8.9 -- 9.3 ALBUMIN g/dL -- -- -- -- -- -- 3.8 < > = values in this interval not displayed. Recent Labs Lab Units 06/22/22 0833 06/21/22 2147 06/21/22 1742 06/21/22 1453 06/21/22 0855 06/20/22 0802 06/20/22 0508 06/19/22 1604 06/19/22 1132 SODIUM mmol/L -- -- -- -- 143 -- 141 -- 140 POTASSIUM PLASMA mmol/L -- -- -- -- 4.1 -- 3.7 -- 4.4 CHLORIDE mmol/L -- -- -- -- 109 -- 104 -- 104 CO2 mmol/L -- -- -- -- 25 -- 27 -- 26 ANIONGAP mmol/L -- -- -- -- 9 -- 10 -- 10 GLUCOSE mg/dL -- -- -- -- 135 -- 141 -- 209* POC GLUCOSE MONITOR mg/dL 164 130 182 < > -- < > -- < > -- BUN SERUM mg/dL -- -- -- -- 47* -- 56* -- 56* CREATININE mg/dL -- -- -- -- 1.90* -- 2.30* -- 2.30* CALCIUM mg/dL -- -- -- -- 8.8 -- 8.9 -- 9.3 ALBUMIN g/dL -- -- -- -- -- -- -- -- 3.8 ALK PHOS Units/L -- -- -- -- -- -- -- -- 158* ALT Units/L -- -- -- -- -- -- -- -- 67* AST Units/L -- -- -- -- -- -- -- -- 41 BILIRUBIN TOTAL mg/dL -- -- -- -- -- -- -- -- 0.2 < > = values in this interval not displayed. Recent Labs Lab Units 06/19/22 1132 ALK PHOS Units/L 158* BILIRUBIN TOTAL mg/dL 0.2 TOTAL PROTEIN g/dL 7.6 ALT Units/L 67* AST Units/L 41 Lab Results Component Value Date GLUCOSE 164 06/22/2022 GLUCOSE 130 06/21/2022 GLUCOSE 182 06/21/2022 Implant: Implants No active implants to display in this view. General Precautions (If Blank, None Found): Isolation Status: No active isolations Nutritional Status and in-house recommendations: Dietary Orders (From admission, onward) Start Ordered 06/20/22 0713 Adult Diet Restricted; Cardiac (Low Na, Low Chol); Diabetic; Yes, patient is receiving insulin Diet effective now Question Answer Comment (MHB/MHE/[facility]) Diet type Restricted Fat / Sodium Restriction: Cardiac (Low Na, Low Chol) Diabetic: Diabetic Patient receiving insulin: Yes, patient is receiving insulin 06/20/22 0713 06/19/22 2100 Bedtime snack At bedtime Comments: If bedtime BG is less than 100mg/dl, give patient a 15 gram carbohydrate snack. 06/19/22 1841 Anticoagulation Indication: INR: No results found for requested labs within last 720 hours. Warfarin Administrations (last 168 hours) None Oxygen Status: O2 Therapy for the past 12 hrs: O2 Therapy 06/22/22 0808 None (Room air) 06/22/22 0354 None (Room air) Wound Care Instructions Active LDAs (If Blank, None Found): Peripheral IV 06/19/22 20 G Anterior;Proximal;Right Forearm (Active) Placement Date/Time: 06/19/22 154 Type: Angiocath Size (Gauge): 20 G Location Orientation: Anterior;Proximal;Right Location: Forearm Site Prep: Chlorhexidine Comfort Measures: Distraction Local Anesthetic: None Technique: Ultrasound guidance... Peripheral IV 06/20/22 22 G Posterior;Right Hand (Active) Placement Date/Time: 06/20/222199 Size (Gauge): 22 G Location Orientation: Posterior;Right Location: Hand Insertion attempts: 2 Patient Tolerance: Tolerated well Patient Emergency Contact: Primary Emergency Contact: Areli Gayle, Bandar Immunization Status at Discharge Immunization History Administered Date(s) Administered Influenza Nasal, Unspecified 04/17/2017 Influenza, Quadrivalent, High Dose, Preservative Free, Intrr 04/02/2020, 03/07/2021, 04/01/2022 Influenza, Trivalent, Adjuvanted, Intramuscular 04/06/2019 Influenza, Trivalent, Intramuscular 04/17/2017 Pfizer SARS-CoV-2 Vaccination (12+ yrs) PURPLE 09/22/2020, 10/13/2020, 06/11/2021 Pneumococcal Conjugate PCV 13 03/31/2017 Pneumococcal Polysaccharide PPV23 01/20/2019 Cara Douglas MD WASHER STRINGING MACHINE OPERATOR documented in this encounter Medications at Time [...] long-term current use of insulin (HCC) USE TO INJECT BASAGLAR EVERY NIGHT AT BEDTIME 06/25/2021 3 benztropine (COGENTIN) 1 mg tablet Take 1 tablet (1 mg total) by mouth nightly 30 tablet 11 03/19/2022 3 blood pressure monitor kit Check BP as instructed 1 kit 03/20/2021 3 capsaicin (ZOSTRIX) 0.025 % cream Apply topically 2 (two) times a day 60 g 08/13/2021 3 carvediloL (COREG) 3.125 mg tabletIndications: Hypertension associated with diabetes (HCC) Take 1 tablet (3.125 mg total) by mouth 2 (two) times a day with meals 180 tablet 1 04/29/2022 3 conner.stocking,t high,reg,med miscIndications:Pe ripheral edema Wear as much as possible 2 each 1 05/28/2021 4 dulaglutide (TRULICITY) 1.5 mg/0.5 mL pen injectorIndication s:Type 2 diabetes mellitus with diabetic neuropathy, with long-term current use of insulin ([facility]) Inject 0.5 mL (1.5 mg total) under the skin every 7 days 2 mL 1 06/07/2022 3 famotidine (PEPCID) 10 mg tabletIndications: Gastroesophageal reflux disease, unspecified whether esophagitis present Take 1 tablet (10 mg total) by mouth nightly 90 tablet 02/13/2022 3 ferrous sulfate 325 mg (65 mg of elemental iron) tabletIndications: Iron Deficiency Anemia Take 1 tablet (325 mg total) by mouth daily with breakfast 90 tablet 1 01/09/2022 3 flash glucose scanning reader (FreeStyle Madhav 2 Given) miscIndications:Ty pe 2 diabetes mellitus with diabetic [...] [facility]) Inject 34 Units under the skin nightly 45 mL 4 05/26/2022 3 insulin lispro (HumaLOG, ADMELOG) 100 unit/mL pen for injection Inject 12 Units under the skin 3 (three) times a day with meals 33 mL 1 04/02/2022 3 ketoconazole (NIZORAL) 2 % creamIndications:P ressure injury of buttock, stage 1, unspecified laterality Apply topically 2 (two) times a day 30 g 01/14/2022 3 lancets miscIndications:Un controlled type 2 diabetes mellitus with hyperglycemia (HCC) Check blood sugar up to 3 times a day 100 each 3 11/13/2020 3 lidocaine (LIDODERM) 5 %Indications:pain Place 1 patch on the skin daily. apply on patch to the painful area once every day and leave on for 12 hours then off for 12 hours. Rx# [id number] in home 05/02/22 per Hanny Cruz PTA entered by Tamela Swanson RN 05/04/22 Indications: pain 3 miscellaneous medical supply (Blood Pressure Cuff) miscIndications:Hy pertension associated with diabetes (HCC) Use to check blood pressure daily 1 each 1 10/07/2021 3 multivitamin with minerals tablet Take 1 tablet by mouth daily 3 OneTouch Verio test strips stripIndications:U ncontrolled [...] 09/12/2017 3 valsartan (DIOVAN) 40 mg tablet Take 1 tablet (40 mg total) by mouth daily 90 tablet 3 02/12/2022 3 documented as of this encounter Discharge Disposition Disposition Code Departure Means Destination Discharge to home or self care documented in this encounter Progress Notes * Kami Pierson, PT - 06/22/2022 9:18 AM CST Physical Therapy 06/22/22 0918 General Chart Reviewed Yes Session Type Evaluation PT Received On 06/22/22 Safe Environment Arm Band Checked;Chair Alarm placed and activated;Call Light within Reach;NotifiedRN Subjective Agreeable to Therapy Family/Caregiver Present No Physical Therapy-Patient Goal return home Precautions Precautions Fall risk Home Living Type of Home House Home Layout One level Home Mobility Equipment Walker Prior Function Level of [place] Independent with ADLs;Independent functional transfers;Independent with ambulation;Needs assistance with homemaking Lives With Daughter Receives Help From Family Pain Assessment Pain Assessment No/denies pain Bed Mobility Bed Mobility No Transfers Transfer Yes Transfer 1 Transfer From 1 Sit Transfer Type 1 To and from Transfer to 1 Stand Technique 1 Sit to stand;Stand to sit Transfer Device 1 Standard walker Transfer Level of Assistance 1 Standby Assist Ambulation Ambulation Yes Ambulation 1 Distance (ft) 1 75 Surface 1 Level tile Device 1 Standard walker Assistance 1 Standby Assist Quality of Gait 1 increased trunk flexion, decreased lanny RLE Assessment RLE Assessment WFL LLE Assessment LLE Assessment WFL Assessment Prognosis Good Problem List Decreased endurance;Impaired balance;Decreased mobility Plan Plan Plan of care initiated Recommendation/Plan PT Recommendation/Plan Home Health PT;Home with caregiver;Home Health OT Patient at high risk for Falls PT Frequency during current admission 5-7x/wk Treatment/Interventions during current admission Balance Training;Bed mobility;Functional activity;Functional transfer training;Gait training;Range of motion;Therapeutic activity;Therapeutic exercise PT Equipment Recommended Wheeled walker (pt has standard walker, would benefit from wheeled walker to decrease fall risk) PT - Next Appointment 07/06/22 PT Evaluation Complete Yes Educated the patient to the role of physical therapy, plan of care, goals of therapy, rationale forprogressing mobility and home safety. Patient was left in chair with all needs met and equipment intact. Safety measures include handoff to nurse/tech, chair alarm activated, oriented to call light and placed within reach, and personal items within reach. Mobility and ADL status posted at bedside and within medical record. Multi-Disciplinary Problems (from Physical Therapy) Active Problems Problem: Mobility Start Date: 06/22/22 Goal Start Date Expected End Date End Date STG - Patient will ambulate 06/22/22 06/29/22 -- Goal Details: Pt will ambulate 150' with walker and SBA Problem: Transfers Start Date: 06/22/22 Goal Start Date Expected End Date End Date STG - Patient to transfer to and from sit to supine 06/22/22 06/29/22 -- Goal Details: Pt to transfer to and from sit to supine IND Goal Start Date Expected End Date End Date STG - Patient will transfer sit to and from stand 06/22/22 06/29/22 -- Goal Details: Pt will transfer sit to and from stand IND 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 Pt states she only wants food - PT assisted with ordering breakfast) WASHER STRINGING MACHINE OPERATOR * Cara Douglas MD - 06/21/2022 9:13 AM CST General Medicine Daily Progress SUBJECTIVE Patient is seen for follow-up of generalized weakness, UTI, left lower extremity deep vein thrombosis on Eliquis, type 2 diabetes hypertension, schizoaffective disorder and Parkinson's disease. Patient is seen and examined today. She is resting comfortably in bed. Denies any chest pain shortness a breath. No nausea, vomiting, diarrhea abdominal pain reported. She remains afebrile. No overnight issues reported by nursing staff. OBJECTIVE Vitals: 24hr Min/Max: Temp Min: 36.6 ??C (97.8 ??F) Max: 36.8 ??C (98.2 ??F) Pulse Min: 72 Max: 76 BP Min: 129/87 Max: 164/73 Resp Min: 18 Max: 18 SpO2 Min: 95 % Max: 97 % Most Recent : Vitals: 06/21/22 0838 BP: 136/63 Pulse: 72 Resp: 18 Temp: 36.6 ??C (97.9 ??F) SpO2: 95% No intake/output data recorded. No intake/output data recorded. Physical Exam: General Exam: In no acute distress Obese Resting comfortably in bed Does not appear to be in pain Skin: Dry, Warm. ABSENT: Jaundice, Rash Head: Atraumatic, Normocephalic Ears, Nose, Mouth, Throat: Ext. ears & nose normal, Moist mucous membranes Neck: Supple Cardiovascular: Normal range, Regular rhythm, S1S2 normal. ABSENT: Edema Respiratory: Effort is normal, no wheezing Abdomen: Bowel sounds present, Soft. ABSENT: Mass, Tenderness, Distention Neurological: No gross deficit Resting tremor Psychiatric: Affect appropriate, Alert Psychiatric - Orientation: Oriented to: Time, Place, Person Lab/Current Medication Review: Recent Results (from the past 24 hour(s)) POCT glucose Collection Time: 06/20/22 11:03 AM Result Value Ref Range Glucose, POC 218 (H) 70 - 199 mg/dL Glucose comment 1 Use This Result POCT glucose Collection Time: 06/20/22 12:50 PM Result Value Ref Range Glucose, POC 202 (H) 70 - 199 mg/dL POCT glucose Collection Time: 06/20/22 6:01 PM Result Value Ref Range Glucose, POC 119 70 - 199 mg/dL POCT glucose Collection Time: 06/20/22 9:16 PM Result Value Ref Range Glucose, POC 198 70 - 199 mg/dL Glucose comment 1 Use This Result POCT glucose Collection Time: 06/21/22 8:30 AM Result Value Ref Range Glucose, POC 138 70 - 199 mg/dL CT Abdomen Pelvis WO Contrast Result Date: 06/19/2022 Narrative: EXAM DESCRIPTION: CT ABDOMEN PELVIS WO CONTRAST REASON FOR STUDY: UTI, worsening renal function, decreased urine output. generalized weakness for 3 days. Patient also states that she has been urinating a lot a going to the bathroom a lot more than normal TECHNIQUE: CT scan of the abdomenand pelvis performed without intravenous and without oral contrast using helical scanning technique. Reconstructed coronal and sagittal MPR images reviewed. All images stored on PACS. Automated exposure control was used as a dose optimization technique for this examination. COMPARISON: 01/19/2017 FINDINGS: The sensitivity for detection of visceral lesions is diminished without the use of intravenous contrast. LOWER CHEST: No significant pulmonary abnormalities. No effusion. LIVER: The liver is normal in size. Chronic undulating surface superior may represent chronic underlying liver disease. GALLBLADDER: Gallbladder is partially distended. No CT evidence of acute cholecystitis. BILE DUCTS: No intrahepatic or extrahepatic ductal dilatation. SPLEEN: Spleen is normal in size. PANCREAS: Moderate atrophy of the pancreas. No significant peripancreatic stranding or main ductal dilatation. ADRENALS: Normal. KIDNEYS/URINARY TRACT: The kidneys are normal in size. No hydronephrosis. No stone. Nosignificant perinephric stranding. Urinary bladder is distended. No substantial thickening or stranding. GI: Sigmoid diverticulosis without CT evidence of diverticulitis. Stool throughout the colon which appears nondilated. The appendix is nondilated. The small bowel is nondilated without evidence of bowel obstruction. The stomach is distended with ingested material. PERITONEUM: Laxity of the anterior abdominal wall with rectus diastasis. No free air or ascites is seen. No mesenteric lymphadenopathy RETROPERITONEUM: No retroperitoneal or inguinal lymphadenopathy. REPRODUCTIVE: No significant abnormality. VASCULATURE: Aorta is normal caliber. MUSCULOSKELETAL: Chronic cutaneous/subcutaneous nodule within the lower midabdomen slightly increased in size compared to 2017, likely benign. This measures 13 x 10 mm, previously 11 x 9 mm (151). No acute fracture seen. Stable irregularity and sclerosis of the inferior endplate of L4 compared to a lumbar spine CT dated 08/08/2021. OTHER: No otherabnormality. IMPRESSION: 1. No gross CT finding to explain the patient's symptoms. REFERENCE: Unless otherwise specified, no follow-up imaging is recommended for incidental renal and adrenal lesions per consensus recommendations based on imaging criteria. Further lab evaluation could be pursued based on clinical findings. Management of the Incidental Renal Mass on CT: A White Paper of the ACR Incidental Findings Committee. J Am Yonny Radiol. 2018 Jul;15(2):264-273. Management of Incidental Adrenal Masses: A White Paper of the ACR Incidental Findings Committee. J Am Yonny Radiol. 2017 Jan;14(8):8470-7996. THIS IS AN ELECTRONICALLY VERIFIED FINAL REPORT 06/19/2022 9:29 PM - Electronically signed by Shane Miller M.D. AG: AG Report ID:[id number] Reading Location: [id number] XR Chest 1 View Result Date: 06/20/2022 Narrative: EXAM DESCRIPTION: XR CHEST 1 VIEW REASON FOR STUDY: Generalized weakness for 3 days. TECHNIQUE: AP radiographic view of the chest acquired. COMPARISON: 04/29/2022 FINDINGS: LUNGS/PLEURA: No focal consolidation or pneumothorax. No pleural effusion. HEART/MEDIASTINUM: Heart size is normal. Normal mediastinal and hilar contours. HARDWARE/LINES/TUBES: None. BONES: Decreased bilateral subacromial space. No acute osseous findings. OTHER: No other significant finding. IMPRESSION: No acute cardiopulmonary abnormality. THIS IS AN ELECTRONICALLY VERIFIED FINAL REPORT 06/20/2022 12:08 AM - Louise ctronically signed by Larry Perez M.D. ML: ML T: 2:08 AM Report ID: [id number] Reading Location: [id number] Current Facility-Administered Medications Medication Dose Route Frequency Provider Last Rate Last Admin apixaban (ELIQUIS) tablet 5 mg 5 mg oral Q12H Cara Douglas MD 5 mg at 06/21/22 0900 atorvastatin (LIPITOR) tablet 20 mg 20 mg oral Daily Cara Douglas MD 20 mg at 06/21/22 0900 benztropine (COGENTIN) tablet 1 mg 1 mg oral Nightly Cara Douglas MD 1 mg at 06/20/222135 carvediloL (COREG) tablet 3.125 mg 3.125 mg oral BID with meals (bkfst, dinner) Cara Douglas MD3.125 mg at 06/21/22 0900 cefTRIAXone (ROCEPHIN) 2,000 mg/20 mL in sterile water (premix) 2,000 mg 2,000 mg intravenous Q24H SOL Cara Douglas MD 2,000 mg at 06/21/22 0900 dextrose gel in packet 15 g 15 g oral Q15 Min PRN Cara Douglas MD Or dextrose (D10W) 10% bolus 250 mL 250 mL intravenous Q15 Min PRN Cara Douglas MD famotidine (PEPCID) tablet 10 mg 10 mg oral Nightly Cara Douglas MD 10 mg at 06/20/222135 glucagon injection 1 mg 1 mg intramuscular Q30 Min PRN Cara Douglas MD insulin glargine (LANTUS, SEMGLEE) 100 unit/mL injection 35 Units 35 Units subcutaneous Nightly Cara Douglas MD 35 Units at 06/20/222136 insulin lispro (HumaLOG, ADMELOG) 100 unit/mL injection 0-4 Units 0-4 Units subcutaneous Nightly Cara Douglas MD insulin lispro (HumaLOG, ADMELOG) 100 unit/mL injection 0-5 Units 0-5 Units subcutaneous TID with meals Cara Douglas MD 2 Units at 06/20/22 125 insulin lispro (HumaLOG, ADMELOG) 100 unit/mL injection 12 Units 12 Units subcutaneous TID with meals Cara Douglas MD 12 Units at 06/21/22 0900 pregabalin (LYRICA) capsule 150 mg 150 mg oral Nightly Cara Douglas MD 150 mg at 06/20/222136 risperiDONE (RisperDAL) tablet 2 mg 2 mg oral Nightly Cara Douglas MD 2 mg at 06/20/222135 sodium chloride 0.9% infusion 50 mL/hr intravenous Continuous Cara Douglas MD 50 mL/hr at 06/20/22 1038 50 mL/hr at 06/20/22 1038 A/P: MDM Principal Problem: Acute cystitis without hematuria Resolved Problems: No resolved hospital problems. Assessment/plan: Generalized weakness/debility: Acute urinary tract infection present at time of admission Leukocytosis Acute kidney injury superimposed on chronic kidney disease stage 2 Chronic anemia Type 2 diabetes History of Parkinson's disease : Continue home med History of schizoaffective disorder: Continue home meds Patient is hemodynamically stable. Remains afebrile. Leukocytosis has resolved with white count of 8.9, CBC for today is pending. Will follow up on white count. Urine culture: No clinically significant bacterial growth. UTI has been ruled out. Will stop IV Rocephin after today's dose. Continue to monitor serum creatinine lab work from yesterday showed serum creatinine of 2.3, basic metabolic panel for today is pending. Will continue to hold KRISTYN-inhibitor and Lasix. Continue gentle IV hydration. Accu-Chek [id number]. Will continue current insulin regimen. CBC for today is pending, will follow up on hemoglobin hematocrit. PT/OT evaluation is still pending. Discharge disposition to be determined based on physical therapy assessment. Low complexity: [employer] Voice recognition software [employer] Direct was used dictate and transcribe this document. Fire Alarm Repairer variances may occur. Despite proofreading, typographical errors may occur. For patients or family members viewing this note through [employer]: This note was written as a communication tool between healthcare providers and may contain technical language, terminology and abbreviations that is difficult to interpret without advanced medical training. If you have questions or concerns regarding what is written in this note, please request to speak with the primary medical team taking care of you or your family member. Cara Douglas MD 06/21/2022 9:13 AM WASHER STRINGING MACHINE OPERATOR * Cara Douglas MD - 06/20/2022 10:25 AM CST General Medicine Daily Progress SUBJECTIVE Patient is seen for follow-up of generalized weakness, UTI, left lower extremity deep vein thrombosis on Eliquis, type 2 diabetes hypertension, schizoaffective disorder and Parkinson's disease. Patient is seen examined today. She is resting comfortably in bed. No chest pain, shortness breath or palpitation reported Denies any abdominal pain Remains afebrile Appetite is fair No overnight issues reported by nursing staff. OBJECTIVE Vitals: 24hr Min/Max: Temp Min: 36.1 ??C (97 ??F) Max: 36.9 ??C (98.4 ??F) Pulse Min: 64 Max: 77 BP Min: 109/62 Max: 178/84 Resp Min: 12 Max: 18 SpO2 Min: 95 % Max: 100 % Most Recent : Vitals: 06/20/22 0803 BP: 124/66 Pulse: 77 Resp: 16 Temp: 36.8 ??C (98.2 ??F) SpO2: 95% No intake/output data recorded. No intake/output data recorded. Physical Exam: General Exam: In no acute distress Skin: Dry, Warm. ABSENT: Jaundice, Rash Head: Atraumatic, Normocephalic Ears, Nose, Mouth, Throat: Ext. ears & nose normal, Moist mucous membranes Neck: Supple Cardiovascular: Normal range, Regular rhythm, S1S2 normal. ABSENT: Edema Respiratory: Effort is normal, no wheezing Abdomen: Bowel sounds present, Soft. ABSENT: Mass, Tenderness, Distention Neurological: No gross deficit Resting tremor Psychiatric: Affect appropriate, Alert Psychiatric - Orientation: Oriented to: Time, Place, Person Lab/Current Medication Review: Recent Results (from the past 24 hour(s)) ECG 12 lead Collection Time: 06/19/22 11:28 AM Result Value Ref Range Ventricular Rate EKG/Min 68 BPM Atrial Rate 68 BPM DC-Interval (MSEC) 164 ms QRS-Interval (MSEC) 70 ms QT-Interval (MSEC) 428 ms QTc 455 ms P Arlee 62 degrees R Arlee 5 degrees T Arlee 29 degrees Diagnosis Normal sinus rhythm Normal ECG No previous ECGs available CBC with auto differential Collection Time: 06/19/22 11:32 AM Result Value Ref Range WBC 11.0 (H) 3.8 - 9.9 K/cumm Hgb 9.9 (L) 11.9 - 15.5 g/dL Hct 31.9 (L) 35.6 - 45.5 % Plt 314 150 - 400 K/cumm MPV 10.9 9.1 - 12.3 fL RBC 3.35 (L) 3.90 - 5.20 M/cumm MCV 95.2 81.3 - 96.4 fL MCH 29.6 27.1 - 33.3 pg MCHC 31.0 (L) 32.3 - 35.7 g/dL RDW CV 14.9 11.1 - 14.9 % RDW SD 52.0 (H) 35.7 - 48.1 fL NRBC abs 0.00 0.00 - 0.01 K/cumm Comprehensive metabolic panel Collection Time: 06/19/22 11:32 AM Result Value Ref Range Sodium 140 135 - 145 mmol/L Potassium, pl 4.4 3.3 - 4.9 mmol/L Chloride 104 97 - 110 mmol/L CO2 26 22 - 32 mmol/L Anion gap 10 2 - 15 mmol/L BUN 56 (H) 8 - 25 mg/dL Creatinine 2.30 (H) 0.60 - 1.10 mg/dL Glucose 209 (H) 70 - 199 mg/dL Calcium 9.3 8.5 - 10.3 mg/dL Bilirubin, total 0.2 0.1 - 1.2 mg/dL Protein, pl 7.6 6.5 - 8.5 g/dL Albumin 3.8 3.5 - 5.0 g/dL Alk phos 158 (H) 40 - 130 Units/L ALT 67 (H) 7 - 45 Units/L AST 41 10 - 45 Units/L Troponin T high-sensitivity series (baseline, 2hr, 4hr, 6hr) Collection Time: 06/19/22 11:32 AM Result Value Ref Range Trop T hs 32 (H) <=14 ng/L Influenza A/B, RSV, and COVID-19 PCR Nasopharyngeal Collection Time: 06/19/22 11:32 AM Specimen: Nasopharyngeal Result Value Ref Range COVID-19 RNA Negative Negative Influenza A RNA Negative Negative Influenza B RNA Negative Negative RSV RNA Negative Negative Differential, auto Collection Time: 06/19/22 11:32 AM Result Value Ref Range Neutrophil abs 7.8 (H) 1.7 - 6.5 K/cumm Imm gran abs 0.0 0.0 - 0.1 K/cumm Lymphocyte abs 2.3 0.8 - 3.3 K/cumm Monocyte abs 0.7 0.2 - 0.8 K/cumm Eosinophil abs 0.1 0.0 - 0.5 K/cumm Basophil abs 0.1 0.0 - 0.1 K/cumm Neutrophil pct 71.4 % Imm gran pct 0.3 % Lymphocyte pct 20.7 % Monocyte pct 6.0 % Eosinophil pct 1.1 % Basophil pct 0.5 % eGFR Collection Time: 06/19/22 11:32 AM Result Value Ref Range eGFR 22 mL/min/1.73 m2 Hemoglobin A1c Collection Time: 06/19/22 11:32 AM Result Value Ref Range Hgb A1C 8.3 (H) 4.0 - 5.6 % Estimated Average Glucose 192 mg/dL Troponin T high-sensitivity 2-hour Collection Time: 06/19/22 1:59 PM Result Value Ref Range Trop T hs 28 (H) <=14 ng/L Trop T hs delta -4 ng/L Trop T hs interp Insignificant Troponin T high-sensitivity 4-hour Collection Time: 06/19/22 3:43 PM Result Value Ref Range Trop T hs 29 (H) <=14 ng/L Trop T hs delta -3 ng/L Trop T hs interp Insignificant POCT glucose Collection Time: 06/19/22 4:04 PM Result Value Ref Range Glucose, POC 162 70 - 199 mg/dL Urinalysis reflex to microscopic and culture Urine Collection Time: 06/19/22 4:54 PM Specimen: Urine Result Value Ref Range Color, ur Straw Yellow Clarity, ur Cloudy (A) Clear Specific gravity, ur 1.010 1.003 - 1.030 pH, urine 5.0 Protein, ur ql 2+ (A) Negative Glucose, ur ql 1+ (A) Negative Ketones, ur Negative Negative Bilirubin, ur Negative Negative Blood, ur 1+ (A) Negative Urobilinogen, ur <2.0 <2.0 mg/dL Nitrite, ur Negative Negative Leukocyte esterase, ur 4+ (A) Negative UA reflex comment Reflex to microscopic UA will be performed. Urinalysis, microscopic only Collection Time: 06/19/22 4:54 PM Result Value Ref Range WBC, ur >50 (A) 0 - 5 /HPF RBC, ur 11-20 (A) 0 - 2 /HPF Bacteria, ur Trace (A) Yeast, ur 1+ (A) Mucous, ur Present (A) Culture Reflex Comment Reflex to urine culture will be performed. Troponin T high-sensitivity 6-hour Collection Time: 06/19/22 5:50 PM Result Value Ref Range Trop T hs 29 (H) <=14 ng/L Trop T hs delta -3 ng/L Trop T hs interp Insignificant POCT glucose Collection Time: 06/19/22 7:20 PM Result Value Ref Range Glucose, POC 152 70 - 199 mg/dL POCT glucose Collection Time: 06/19/22 8:59 PM Result Value Ref Range Glucose, POC 176 70 - 199 mg/dL POCT glucose Collection Time: 06/20/22 12:36 AM Result Value Ref Range Glucose, POC 136 70 - 199 mg/dL CBC with auto differential Collection Time: 06/20/22 5:08 AM Result Value Ref Range WBC 8.9 3.8 - 9.9 K/cumm Hgb 8.4 (L) 11.9 - 15.5 g/dL Hct 26.9 (L) 35.6 - 45.5 % Plt 256 150 - 400 K/cumm MPV 10.6 9.1 - 12.3 fL RBC 2.90 (L) 3.90 - 5.20 M/cumm MCV 92.8 81.3 - 96.4 fL MCH 29.0 27.1 - 33.3 pg MCHC 31.2 (L) 32.3 - 35.7 g/dL RDW CV 14.4 11.1 - 14.9 % RDW SD 48.6 (H) 35.7 - 48.1 fL NRBC abs 0.00 0.00 - 0.01 K/cumm Basic metabolic panel Collection Time: 06/20/22 5:08 AM Result Value Ref Range Sodium 141 135 - 145 mmol/L Potassium, pl 3.7 3.3 - 4.9 mmol/L Chloride 104 97 - 110 mmol/L CO2 27 22 - 32 mmol/L Anion gap 10 2 - 15 mmol/L BUN 56 (H) 8 - 25 mg/dL Creatinine 2.30 (H) 0.60 - 1.10 mg/dL Glucose 141 70 - 199 mg/dL Calcium 8.9 8.5 - 10.3 mg/dL Pro B-type natriuretic peptide Collection Time: 06/20/22 5:08 AM Result Value Ref Range NT-proBNP 125 <=300 pg/mL Differential, auto Collection Time: 06/20/22 5:08 AM Result Value Ref Range Neutrophil abs 5.6 1.7 - 6.5 K/cumm Imm gran abs 0.0 0.0 - 0.1 K/cumm Lymphocyte abs 2.4 0.8 - 3.3 K/cumm Monocyte abs 0.7 0.2 - 0.8 K/cumm Eosinophil abs 0.2 0.0 - 0.5 K/cumm Basophil abs 0.0 0.0 - 0.1 K/cumm Neutrophil pct 63.3 % Imm gran pct 0.2 % Lymphocyte pct 27.4 % Monocyte pct 7.3 % Eosinophil pct 1.7 % Basophil pct 0.1 % eGFR Collection Time: 06/20/22 5:08 AM Result Value Ref Range eGFR 22 mL/min/1.73 m2 POCT glucose Collection Time: 06/20/22 8:02 AM Result Value Ref Range Glucose, POC 172 70 - 199 mg/dL Glucose comment [address] Abdomen Pelvis WO Contrast Result Date: 06/19/2022 Narrative: EXAM DESCRIPTION: CT ABDOMEN PELVIS WO CONTRAST REASON FOR STUDY: UTI, worsening renal function, decreased urine output. generalized weakness for 3 days. Patient also states that she has been urinating a lot a going to the bathroom a lot more than normal TECHNIQUE: CT scan of the abdomenand pelvis performed without intravenous and without oral contrast using helical scanning technique. Reconstructed coronal and sagittal MPR images reviewed. All images stored on PACS. Automated exposure control was used as a dose optimization technique for this examination. COMPARISON: 01/19/2017 FINDINGS: The sensitivity for detection of visceral lesions is diminished without the use of intravenous contrast. LOWER CHEST: No significant pulmonary abnormalities. No effusion. LIVER: The liver is normal in size. Chronic undulating surface superior may represent chronic underlying liver disease. GALLBLADDER: Gallbladder is partially distended. No CT evidence of acute cholecystitis. BILE DUCTS: No intrahepatic or extrahepatic ductal dilatation. SPLEEN: Spleen is normal in size. PANCREAS: Moderate atrophy of the pancreas. No significant peripancreatic stranding or main ductal dilatation. ADRENALS: Normal. KIDNEYS/URINARY TRACT: The kidneys are normal in size. No hydronephrosis. No stone. Nosignificant perinephric stranding. Urinary bladder is distended. No substantial thickening or stranding. GI: Sigmoid diverticulosis without CT evidence of diverticulitis. Stool throughout the colon which appears nondilated. The appendix is nondilated. The small bowel is nondilated without evidence of bowel obstruction. The stomach is distended with ingested material. PERITONEUM: Laxity of the anterior abdominal wall with rectus diastasis. No free air or ascites is seen. No mesenteric lymphadenopathy RETROPERITONEUM: No retroperitoneal or inguinal lymphadenopathy. REPRODUCTIVE: No significantabnormality. VASCULATURE: Aorta is normal caliber. MUSCULOSKELETAL: Chronic cutaneous/subcutaneous nodule within the lower midabdomen slightly increased in size compared to 2017, likely benign. This measures 13 x 10 mm, previously 11 x 9 mm (151). No acute fracture seen. Stable irregularity and sclerosis of the inferior endplate of L4 compared to a lumbar spine CT dated 08/08/2021. OTHER: No other abnormality. IMPRESSION: 1. No gross CT finding to explain the patient's symptoms. REFERENCE: Unless otherwise specified, no follow-up imaging is recommended for incidental renal and adrenal lesionsper consensus recommendations based on imaging criteria. Further lab evaluation could be pursued based on clinical findings. Management of the Incidental Renal Mass on CT: A White Paper of the ACR Incidental Findings Committee. J Am Yonny Radiol. 2018 Jul;15(2):264-273. Management of Incidental Adrenal Masses: A White Paper of the ACR Incidental Findings Committee. J Am Yonny Radiol. 2017 Jan;14(8):1186-2101. THIS IS AN ELECTRONICALLY VERIFIED FINAL REPORT 06/19/2022 9:29 PM - Electronically signed by Shane Miller M.D. AG: AG Report ID: [id number] Reading Location: [id number] XR Chest 1 View Result Date: 06/20/2022 Narrative: EXAM DESCRIPTION: XR CHEST 1 VIEW REASON FOR STUDY: Generalized weakness for 3 days. TECHNIQUE: AP radiographic view of the chest acquired. COMPARISON: 04/29/2022 FINDINGS: LUNGS/PLEURA: No focal consolidation or pneumothorax. No pleural effusion. HEART/MEDIASTINUM: Heart size is normal. Normal mediastinal and hilar contours. HARDWARE/LINES/TUBES: None. BONES: Decreased bilateral subacromial space. No acute osseous findings. OTHER: No other significant finding. IMPRESSION: No acute cardiopulmonary abnormality. THIS IS AN ELECTRONICALLY VERIFIED FINAL REPORT 06/20/2022 12:08 AM - Louise ctronically signed by Laryr Perez M.D. ML: ML T: 2:08 AM Report ID: [id number] Reading Location: [id number] Current Facility-Administered Medications Medication Dose Route Frequency Provider Last Rate Last Admin apixaban (ELIQUIS) tablet 5 mg 5 mg oral Q12H Cara Douglas MD 5 mg at 06/20/22 0946 atorvastatin (LIPITOR) tablet 20 mg 20 mg oral Daily Cara Douglas MD 20 mg at 06/20/22 0944 benztropine (COGENTIN) tablet 1 mg 1 mg oral Nightly Cara Douglas MD 1 mg at 06/19/222103 carvediloL (COREG) tablet 3.125 mg 3.125 mg oral BID with meals (bkfst, dinner) Cara Douglas MD3.125 mg at 06/20/22 0945 cefTRIAXone (ROCEPHIN) 2,000 mg/20 mL in sterile water (premix) 2,000 mg 2,000 mg intravenous Q24H SOL Cara Douglas MD 2,000 mg at 06/20/22 0849 dextrose gel in packet 15 g 15 g oral Q15 Min PRN Cara Douglas MD Or dextrose (D10W) 10% bolus 250 mL 250 mL intravenous Q15 Min PRN Cara Douglas MD famotidine (PEPCID) tablet 10 mg 10 mg oral Nightly Cara Douglas MD 10 mg at 06/19/222103 glucagon injection 1 mg 1 mg intramuscular Q30 Min PRN Cara Douglas MD insulin glargine (LANTUS, SEMGLEE) 100 unit/mL injection 35 Units 35 Units subcutaneous Nightly Cara Douglas MD 35 Units at 06/19/222103 insulin lispro (HumaLOG, ADMELOG) 100 unit/mL injection 0-4 Units 0-4 Units subcutaneous Nightly Cara Douglas MD insulin lispro (HumaLOG, ADMELOG) 100 unit/mL injection 0-5 Units 0-5 Units subcutaneous TID with meals Cara Douglas MD insulin lispro (HumaLOG, ADMELOG) 100 unit/mL injection 12 Units 12 Units subcutaneous TID with meals Cara Douglas MD pregabalin (LYRICA) capsule 150 mg 150 mg oral Nightly Cara Douglas MD 150 mg at 06/19/222103 risperiDONE (RisperDAL) tablet 2 mg 2 mg oral Nightly Cara Douglas MD 2 mg at 06/19/222103 Current Outpatient Medications Medication Sig Dispense Refill acetaminophen (TYLENOL) 325 mg tablet Take 650 mg by mouth every 6 (six) hours as needed for pain albuterol HFA (ProAir HFA) 90 mcg/actuation inhaler Inhale 2 puffs every 4 (four) hours as needed for wheezing or shortness of breath (Patient not taking: Reported on 06/17/2022) 8.5 g 0 apixaban (ELIQUIS) 5 mg [...] BEDTIME benztropine (COGENTIN) 1 mg tablet Take 1 tablet (1 mg total) by mouth nightly 30 tablet 11 blood pressure monitor kit Check BP as instructed (Patient not taking: Reported on 06/17/2022) 1 kit 0 capsaicin (ZOSTRIX) 0.025 % cream Apply topically 2 (two) times a day (Patient not taking: Reportedon 06/17/2022) 60 g carvediloL (COREG) 3.125 mg tablet Take 1 tablet (3.125 mg total) by mouth 2 (two) times a day withmeals 180 tablet 1 conner.stocking,thigh,reg,med misc Wear as much as possible 2 each 1 dulaglutide (TRULICITY) 1.5 mg/0.5 mL pen injector Inject 0.5 mL (1.5 mg total) under the skin every 7 days 2 mL 1 famotidine (PEPCID) 10 mg tablet Take 1 tablet (10 mg total) by mouth nightly 90 tablet 0 ferrous sulfate 325 mg (65 mg of elemental iron) tablet Take 1 tablet (325 mg total) by mouth dailywith breakfast 90 tablet 1 flash glucose scanning reader (FreeStyle Madhav 2 Given) [facility] [place] Use to continually monitor glucose 1 each 0 flash glucose sensor (FreeStyle Madhav 2 Sensor) kit Use to continually monitor glucose, change every 14 days 6 kit 3 furosemide (LASIX) 40 mg tablet Take 1 tablet (40 mg total) by mouth 2 (two) times a day (Patient taking differently: Take 40 mg by mouth 2 (two) times a day rx# [id number]) 60 tablet 11 insulin glargine 100 unit/mL (3 mL) pen for injection Inject 34 Units under the skin nightly 45 mL 4 insulin lispro (HumaLOG, ADMELOG) 100 unit/mL pen for injection Inject 12 Units under the skin 3 (three) times a day with meals (Patient taking differently: Inject 12 Units under the skin 3 (three) times a day with meals Plus sliding scale) 33 mL 1 ketoconazole (NIZORAL) 2 % cream Apply topically 2 (two) times a day (Patient not taking: Reported on 06/17/2022) 30 g 0 lancets misc Check blood sugar up to 3 times a day 100 each 3 lidocaine (LIDODERM) 5 % Place 1 patch on the skin daily. apply on patch to the painful area once every day and leave on for 12 hours then off for 12 hours. Rx# [id number] in home 05/02/22 per Hanny Cruz PTA entered by Tamela Swanson RN 05/04/22 Indications: pain miscellaneous medical supply (Blood Pressure Cuff) misc Use to check blood pressure daily (Patient not taking: Reported on 06/17/2022) 1 each 1 multivitamin with minerals tablet Take 1 tablet by mouth daily OneTouch Verio test strips strip TEST 3 TO 4 TIMES DAILY (Patient not taking: Reported on 06/17/2022) 400 each 1 polyethylene glycol (MIRALAX) 17 gram packet Take 1 packet (17 g total) by mouth daily (Patient taking differently: Take 17 g by mouth as needed) pregabalin (LYRICA) 150 mg capsule Take 1 capsule (150 mg total) by mouth nightly 30 capsule 2 risperiDONE (RisperDAL) 2 mg tablet Take 1 tablet (2 mg total) by mouth nightly 30 tablet 11 syringe with needle, insulin (INSULIN SYRINGE-NEEDLE U-[facility]) 3 times a day valsartan (DIOVAN) 40 mg tablet Take 1 tablet (40 mg total) by mouth daily 90 tablet 3 A/P: MDM Principal Problem: Acute cystitis without hematuria Resolved Problems: No resolved hospital problems. Assessment/plan: Generalized weakness/debility: Acute urinary tract infection present at time of admission Leukocytosis Acute kidney injury superimposed on chronic kidney disease stage 2 Chronic anemia Type 2 diabetes History of Parkinson's disease : Continue home med History of schizoaffective disorder: Continue home meds Patient is hemodynamically stable at this time. Leukocytosis has resolved with white count of 8.9. Urine and blood culture is pending Continue IV Rocephin. Serum creatinine is stable 2.3. Will continue to hold KRISTYN-inhibitor and Lasix. Will continue gentle IV hydration. Hemoglobin is relatively stable at 8.4 will continue to monitor. Accu-Chek range 152 to 172 Continue current insulin regimen Sliding scale insulin Diabetic diet Will request PT/OT evaluation. Moderate complexity: MDM Plan of care discussed with case management and social and human services assistant. Voice recognition software [employer] Direct was used dictate and transcribe this document. Fire Alarm Repairer variances may occur. Despite proofreading, typographical errors may occur. For patients or family members viewing this note through [employer]: This note was written as a communication tool between healthcare providers and may contain technical language, terminology and abbreviations that is difficult to interpret without advanced medical training. If you have questions or concerns regarding what is written in this note, please request to speak with the primary medical team taking care of you or your family member. Cara Douglas MD 06/20/2022 10:25 AM WASHER STRINGING MACHINE OPERATOR documented in this encounter H&P Notes * Nikhil Weiss, DO - 06/19/2022 7:40 PM CST Images from the original note were not included. History and Physical Date of Service: 06/19/2022 Primary Care Physician: Cherelle Corcoran MD [phone] CHIEF COMPLAINT: Frequency, generalized weakness HPI: This is a 71-year-old female with a past medical history as detailed below presents with complaintsof urinary frequency, urgency, decreased urine output, chills, fatigue, and generalized on weaknessfor the past several days. She denies fevers, night sweats, chest pain, palpitations, PND orthopnea, cough, dyspnea, nausea, vomiting, abdominal pain, diarrhea, constipation, overt bleeding, new focal deficits. Urinalysis is consistent with acute UTI. White count is mildly elevated at 11,000. Patient will be started on IV ceftriaxone. Patient's creatinine is mildly elevated in the setting of CKD likely secondary to volume depletion. We will order chest x-ray and BNP. Vitals are unremarkable. Patient was found to have a mildly elevated troponin of 32 which is downtrending and flat lining. EKGsunremarkable. Likely type 2 NSTEMI. Patient denies chest pain. We will give echocardiogram. CT abdomen was obtained in the ER which is unremarkable. Past Medical History: Diagnosis Date Arthritis Depression Diabetic neuropathy (HCC) Hyperlipidemia Hypertension Schizophrenia (HCC) Type 2 diabetes mellitus (HCC) [...] Frequency of Binge Drinking: Not on file No Known Allergies (Not in a hospital admission) Review of Systems: A 10 point review of systems was completed and is negative except as stated in the HPI. OBJECTIVE: Most Recent : Vitals: 06/19/22 1455 06/19/22 1649 06/19/22 1700 06/19/22 1900 BP: 167/90 166/65 151/87 135/76 BP Location: Right arm Patient Position: Lying Pulse: 67 65 64 64 Resp: 15 16 12 16 Temp: SpO2: 100% 99% 99% 97% Physical Exam Vitals reviewed. Constitutional: General: She is not in acute distress. HENT: Head: Normocephalic and atraumatic. Mouth/Throat: Mouth: Mucous membranes are dry. Eyes: General: No scleral icterus. Pupils: Pupils are equal, round, and reactive to light. Cardiovascular: Rate and Rhythm: Normal rate and regular rhythm. Pulmonary: Effort: Pulmonary effort is normal. No respiratory distress. Breath sounds: Normal breath sounds. No wheezing or rales. Abdominal: General: Bowel sounds are normal. There is no distension. Tenderness: There is no abdominal tenderness. There is no right CVA tenderness, left CVA tenderness, guarding or rebound. Musculoskeletal: General: Normal range of motion. Cervical back: Neck supple. Skin: General: Skin is warm and dry. Neurological: General: No focal deficit present. Mental Status: She is alert. Mental status is at baseline. Lab/Radiology/Diagnostic Review: Recent Results (from the past 24 hour(s)) POCT glucose Collection Time: 06/19/22 10:05 AM Result Value Ref Range Glucose Blood, POC 235 mg/dL POCT urinalysis dipstick Collection Time: 06/19/22 10:25 AM Result Value Ref Range Color, Urine, POC Light Yellow Clarity, ur, POC Cloudy (A) Clear Glucose, ur, POC 100. (A) Negative MG/DL Bilirubin, ur, POC Negative Negative, Small, Moderate, Large Ketones, ur, POC Negative Negative Specific [place], POC 1.020 1.005 - 1.030 Blood, ur, POC Small (A) Negative pH, ur, POC 5.5 5.0 - 8.0 Protein, ur, POC 300. (A) Negative Urobilinogen, urine, POC 0.2 0.2 - 1.0 mg/dL Nitrite, ur, POC Negative Negative Leukocytes, ur, POC Moderate (A) Negative Lot Number 0 CBC with auto differential Collection Time: 06/19/22 11:32 AM Result Value Ref Range WBC 11.0 (H) 3.8 - 9.9 K/cumm Hgb 9.9 (L) 11.9 - 15.5 g/dL Hct 31.9 (L) 35.6 - 45.5 % Plt 314 150 - 400 K/cumm MPV 10.9 9.1 - 12.3 fL RBC 3.35 (L) 3.90 - 5.20 M/cumm MCV 95.2 81.3 - 96.4 fL MCH 29.6 27.1 - 33.3 pg MCHC 31.0 (L) 32.3 - 35.7 g/dL RDW CV 14.9 11.1 - 14.9 % RDW SD 52.0 (H) 35.7 - 48.1 fL NRBC abs 0.00 0.00 - 0.01 K/cumm Comprehensive metabolic panel Collection Time: 06/19/22 11:32 AM Result Value Ref Range Sodium 140 135 - 145 mmol/L Potassium, pl 4.4 3.3 - 4.9 mmol/L Chloride 104 97 - 110 mmol/L CO2 26 22 - 32 mmol/L Anion gap 10 2 - 15 mmol/L BUN 56 (H) 8 - 25 mg/dL Creatinine 2.30 (H) 0.60 - 1.10 mg/dL Glucose 209 (H) 70 - 199 mg/dL Calcium 9.3 8.5 - 10.3 mg/dL Bilirubin, total 0.2 0.1 - 1.2 mg/dL Protein, pl 7.6 6.5 - 8.5 g/dL Albumin 3.8 3.5 - 5.0 g/dL Alk phos 158 (H) 40 - 130 Units/L ALT 67 (H) 7 - 45 Units/L AST 41 10 - 45 Units/L Troponin T high-sensitivity series (baseline, 2hr, 4hr, 6hr) Collection Time: 06/19/22 11:32 AM Result Value Ref Range Trop T hs 32 (H) <=14 ng/L Influenza A/B, RSV, and COVID-19 PCR Nasopharyngeal Collection Time: 06/19/22 11:32 AM Specimen: Nasopharyngeal Result Value Ref Range COVID-19 RNA Negative Negative Influenza A RNA Negative Negative Influenza B RNA Negative Negative RSV RNA Negative Negative Differential, auto Collection Time: 06/19/22 11:32 AM Result Value Ref Range Neutrophil abs 7.8 (H) 1.7 - 6.5 K/cumm Imm gran abs 0.0 0.0 - 0.1 K/cumm Lymphocyte abs 2.3 0.8 - 3.3 K/cumm Monocyte abs 0.7 0.2 - 0.8 K/cumm Eosinophil abs 0.1 0.0 - 0.5 K/cumm Basophil abs 0.1 0.0 - 0.1 K/cumm Neutrophil pct 71.4 % Imm gran pct 0.3 % Lymphocyte pct 20.7 % Monocyte pct 6.0 % Eosinophil pct 1.1 % Basophil pct 0.5 % eGFR Collection Time: 06/19/22 11:32 AM Result Value Ref Range eGFR 22 mL/min/1.73 m2 Troponin T high-sensitivity 2-hour Collection Time: 06/19/22 1:59 PM Result Value Ref Range Trop T hs 28 (H) <=14 ng/L Trop T hs delta -4 ng/L Trop T hs interp Insignificant Troponin T high-sensitivity 4-hour Collection Time: 06/19/22 3:43 PM Result Value Ref Range Trop T hs 29 (H) <=14 ng/L Trop T hs delta -3 ng/L Trop T hs interp Insignificant POCT glucose Collection Time: 06/19/22 4:04 PM Result Value Ref Range Glucose, POC 162 70 - 199 mg/dL Urinalysis reflex to microscopic and culture Urine Collection Time: 06/19/22 4:54 PM Specimen: Urine Result Value Ref Range Color, ur Straw Yellow Clarity, ur Cloudy (A) Clear Specific gravity, ur 1.010 1.003 - 1.030 pH, urine 5.0 Protein, ur ql 2+ (A) Negative Glucose, ur ql 1+ (A) Negative Ketones, ur Negative Negative Bilirubin, ur Negative Negative Blood, ur 1+ (A) Negative Urobilinogen, ur <2.0 <2.0 mg/dL Nitrite, ur Negative Negative Leukocyte esterase, ur 4+ (A) Negative UA reflex comment Reflex to microscopic UA will be performed. Urinalysis, microscopic only Collection Time: 06/19/22 4:54 PM Result Value Ref Range WBC, ur >50 (A) 0 - 5 /HPF RBC, ur 11-20 (A) 0 - 2 /HPF Bacteria, ur Trace (A) Yeast, ur 1+ (A) Mucous, ur Present (A) Culture Reflex Comment Reflex to urine culture will be performed. Troponin T high-sensitivity 6-hour Collection Time: 06/19/22 5:50 PM Result Value Ref Range Trop T hs 29 (H) <=14 ng/L Trop T hs delta -3 ng/L Trop T hs interp Insignificant POCT glucose Collection Time: 06/19/22 7:20 PM Result Value Ref Range Glucose, POC 152 70 - 199 mg/dL No results found. ASSESSMENT/PLAN: Principal Problem: Acute cystitis without hematuria Resolved Problems: No resolved hospital problems. Acute complicated UTI with history of recurrent UTIs Leukocytosis, mild STEFANO on CKD NSTEMI, likely type 2 & possibly chronically elevated 2/2 CKD -baseline creatinine around 1.8 to 2.0 HFpEF, EF 69%, chronic History of LLE DVT on Eliquis Chronic anemia Diabetes mellitus Hypertension Hyperlipidemia Schizoaffective disorder Dementia Plan: -CXR, TTE -IV ABX -pending chest x-ray will start IVF if indicated -hold home Lasix and ARB -insulin sliding scale -continue home Eliquis, statin, coreg -recheck/replace lytes prn -provide supplemental O2 p.r.n. to maintain SpO2 >92% -DVT prophylaxis: Eliquis Estimated LOS: 1-2 days MDM Complexity: Moderate Nikhil Weiss DO 06/19/2022 7:53 PM WASHER STRINGING MACHINE OPERATOR documented in this encounter Nursing Notes * Becky Sims RN - 06/22/2022 10:40 AM CST Spoke with Brittney, Barrel Washer table worker packager regarding PT/OT home health. She will work on sending referalls but states she will not hear back until tomorrow as it is a holiday. She states that the patient may discharge and she will send appropriate referrals. 1059-Discharge instructions provided to daughter Areli. Verbalizes understanding and denies questions. States she will pick patient up around 1200 WASHER STRINGING MACHINE OPERATOR WASHER STRINGING MACHINE OPERATOR documented in this encounter ED Notes * Dedra Sharma RN - 06/20/2022 9:15 AM CST Pt eating breakfast, ED medication omnicell out of ordered insulin, pharmacy called to send meds Dedra Sharma RN 06/20/22 0916 WASHER STRINGING MACHINE OPERATOR * Rody Gould RN - 06/19/2022 7:15 PM CST 1914 - Assumed care of patient at this time, daughter at bedside. Repositioned patient for comfort and provided pillow and extra blankets. Call light in reach. Updated patient and daughter that patient will be boarder in ED. Verbalizes understanding. 1956 - Patient to CT 2009 - Patient arrived back from CT. Repositioned for comfort. Call light in reach. Daughter going home from the evening, 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 in chart. 2111 - Night time medications provided per MAR/order. Patient requesting a cup of coffee with creamand sugar, placed at bedside. Patient denies further needs at this time. Call light in reach. 2199 - Patient resting with eyes closed and appears in NAD. Continuous monitoring remains in place.Call light in reach. 2249 - Report to [facility] for continuation of care Rody Gould RN 06/19/222250 WASHER STRINGING MACHINE OPERATOR * Darryl Jones II, MD - 06/19/2022 4:24 PM CST HPI Chief Complaint Patient presents with Weakness - Generalized Urinary Problem Patient presents emergency room complaining of generalized weakness for 3 days. Patient also statesthat she has been urinating a lot a going to the bathroom a lot more than normal. Patient also has Parkinson's disease diabetes and stage 3 kidney disease. 6:46 PM Sixto Chakraborty is a 71 y.o. female presenting to the ED c/o Patient History: Past Medical History: Diagnosis Date Arthritis Depression Diabetic neuropathy (HCC) Hyperlipidemia Hypertension Schizophrenia (HCC) Type 2 diabetes mellitus (HCC) [...] Drinking: Not on file Current Facility-Administered Medications: [START ON 06/20/2022] cefTRIAXone (ROCEPHIN) 2,000 mg/20 mL in sterile water (premix) 2,000 mg, 2,000 mg, intravenous, Q24H SOL dextrose gel in packet 15 g, 15 g, oral, Q15 Min PRN OR dextrose (D10W) 10% bolus 250 mL, 250 mL, intravenous, Q15 Min PRN glucagon injection 1 mg, 1 mg, intramuscular, Q30 Min PRN insulin glargine (LANTUS, SEMGLEE) 100 unit/mL injection 35 Units, 35 Units, subcutaneous, Nightly insulin lispro (HumaLOG, ADMELOG) 100 unit/mL injection 0-4 Units, 0-4 Units, subcutaneous, Nightly insulin lispro (HumaLOG, ADMELOG) 100 unit/mL injection 0-5 Units, 0-5 Units, subcutaneous, TID with meals insulin lispro (HumaLOG, ADMELOG) 100 unit/mL injection 12 Units, 12 Units, subcutaneous, TID with meals sodium chloride 0.9% infusion, 125 mL/hr, intravenous, Continuous Current Outpatient Medications: acetaminophen (TYLENOL) 325 mg tablet albuterol HFA (ProAir HFA) 90 mcg/actuation inhaler apixaban (ELIQUIS) 5 mg tablet atorvastatin (LIPITOR) 20 mg tablet BD Arlyn 2nd Gen Pen Needle 32 gauge x 5/32 needle benztropine (COGENTIN) 1 mg tablet blood pressure monitor kit capsaicin (ZOSTRIX) 0.025 % cream carvediloL (COREG) 3.125 mg tablet conner.stocking,thigh,reg,med mis dulaglutide (TRULICITY) 1.5 mg/0.5 mL pen injector famotidine (PEPCID) 10 mg tablet ferrous sulfate 325 mg (65 mg of elemental iron) tablet flash glucose scanning reader (NortisStyle Madhav 2 Given) [facility] flash glucose sensor (FreeStyle Madhav 2 Sensor) kit furosemide (LASIX) 40 mg tablet insulin glargine 100 unit/mL (3 mL) pen for injection insulin lispro (HumaLOG, ADMELOG) 100 unit/mL pen for injection ketoconazole (NIZORAL) 2 % cream lancets [facility] lidocaine (LIDODERM) 5 % miscellaneous medical supply (Blood Pressure Cuff) [facility] multivitamin with minerals tablet OneTouch Verio test strips strip polyethylene glycol (MIRALAX) 17 gram packet pregabalin (LYRICA) 150 mg capsule risperiDONE (RisperDAL) 2 mg tablet syringe with needle, insulin (INSULIN SYRINGE-NEEDLE U-[facility] [place]) valsartan (DIOVAN) 40 mg tablet Review of Systems Review of Systems Constitutional: Negative for chills and fever. Generalized weakness HENT: Negative for ear pain and sore throat. Eyes: Negative for pain and visual disturbance. Respiratory: Negative for cough and shortness of breath. Cardiovascular: Negative for chest pain and palpitations. Gastrointestinal: Negative for abdominal pain and vomiting. Genitourinary: Positive for frequency. Negative for dysuria and hematuria. Musculoskeletal: Negative for arthralgias and back pain. Generalized weakness Skin: Negative for color change and rash. Neurological: Negative for seizures and syncope. History of Parkinson's disease All other systems reviewed and are negative. All systems reviewed and are neg or non contributory for this patients presentation today other than as stated in the HPI . Physical Exam ED Triage Vitals Temp Pulse Resp BP SpO2 06/19/22 1114 06/19/22 1114 06/19/22 1114 06/19/22 1114 06/19/22 1114 36.1 ??C (97 ??F) 69 16 (!) 178/84 98 % Temp src Heart Rate Source Patient Position BP Location FiO2 (%) -- 06/19/22 1649 06/19/22 1649 06/19/22 1649 -- Monitor Lying Right arm Height Height Method Weight Weight Method -- -- -- -- Patient Vitals for the past 24 hrs: BP Temp Pulse Resp SpO2 06/19/22 1700 151/87 -- 64 12 99 % 06/19/22 1649 166/65 -- 65 16 99 % 06/19/22 1455 167/90 -- 67 15 100 % 06/19/22 1114 (!) 178/84 36.1 ??C (97 ??F) 69 16 98 % Physical Exam Vitals and nursing note reviewed. Constitutional: General: She is not in acute distress. Appearance: She is well-developed. HENT: Head: Normocephalic and atraumatic. Right Ear: External ear normal. Left Ear: External ear normal. Nose: Nose normal. Mouth/Throat: Pharynx: Oropharynx is [...] baseline. Psychiatric: Mood and Affect: Mood normal. Procedures MDM Labs Reviewed URINALYSIS AND REFLEX TO MICROSCOPIC AND CULTURE - Abnormal Result Value Color, ur Straw Clarity, ur Cloudy (*) Specific gravity, ur 1.010 pH, urine 5.0 Protein, ur ql 2+ (*) Glucose, ur ql 1+ (*) Ketones, [...] tendency for uric acid stone formation. Source: [facility] REMOTV.Last revised 07-02-2017 CBC WITH AUTO DIFFERENTIAL - Abnormal WBC 11.0 (*) Hgb 9.9 (*) Hct 31.9 (*) Plt 314 MPV 10.9 RBC 3.35 (*) MCV 95.2 MCH 29.6 MCHC 31.0 (*) RDW CV 14.9 RDW SD 52.0 (*) NRBC abs 0.00 COMPREHENSIVE METABOLIC PANEL - Abnormal Sodium 140 Potassium, pl 4.4 Chloride 104 CO2 26 Anion gap 10 BUN 56 (*) Creatinine 2.30 (*) Glucose 209 (*) Calcium 9.3 Bilirubin, total 0.2 Protein, pl 7.6 Albumin 3.8 Alk phos 158 (*) ALT 67 (*) AST 41 TROPONIN T HIGH-SENSITIVITY SERIES (BASELINE, 2HR, 4HR, 6HR) - Abnormal Trop T hs 32 (*) DIFFERENTIAL AUTO - Abnormal Neutrophil abs 7.8 (*) Imm gran abs 0.0 Lymphocyte abs 2.3 Monocyte abs 0.7 Eosinophil abs 0.1 Basophil abs 0.1 Neutrophil pct 71.4 Imm gran pct 0.3 Lymphocyte pct 20.7 Monocyte pct 6.0 Eosinophil pct 1.1 Basophil pct 0.5 TROPONIN T HIGH-SENSITIVITY 2-HOUR - Abnormal Trop T hs 28 (*) Trop T hs delta -4 Trop T hs interp Insignificant TROPONIN T HIGH-SENSITIVITY 4-HR - Abnormal Trop T hs 29 (*) Trop T hs delta -3 Trop T hs interp Insignificant TROPONIN T HIGH-SENSITIVITY 6-HOUR - Abnormal Trop T hs 29 (*) Trop T hs delta -3 Trop T hs interp Insignificant URINALYSIS, MICROSCOPIC ONLY - Abnormal WBC, ur >50 (*) RBC, ur 11-20 (*) Bacteria, ur Trace (*) Yeast, ur 1+ (*) Mucous, ur Present (*) Culture Reflex Comment Reflex to urine culture will be performed. INFLUENZA A/B, RSV, AND COVID-19 PCR COVID-19 RNA Negative Influenza A RNA Negative Influenza B RNA Negative RSV RNA Negative Narrative: Is the Patient experiencing symptoms consistent with COVID?->Yes Date of Symptom Onset->06/16/22 Reason for testing?->Symptomatic URINE CULTURE EGFR eGFR 22 HEMOGLOBIN A1C CBC WITH AUTO DIFFERENTIAL BASIC METABOLIC PANEL POCT GLUCOSE DEVICE Glucose, POC [address] Abdomen Pelvis WO Contrast (Results Pending) BP 151/87 Pulse 64 Temp 36.1 ??C (97 ??F) Resp 12 SpO2 99% MDM Amount and/or Complexity of Data Reviewed Clinical lab tests: ordered and reviewed Tests in the radiology section of CPT??: ordered and reviewed Decide to obtain previous medical records or to obtain history from someone other than the patient:yes Risk of Complications, Morbidity, and/or Mortality Presenting problems: moderate Diagnostic procedures: moderate Management options: moderate Patient Progress Patient progress: stable This examination was transcribed using the Done In :60 Second[employer] voice recognition system without human whiting machine operator. In an effort to expedite patient care, this report has not been adjusted for typographical, grammatical, and syntax by a trained medical dosimetrist. Close outpatient follow-up with a low threshold to return has been mandated , concerning symptoms have been emphasized in detail, and this patient expresses understanding Clinical Impression: Acute cystitis without hematuria Type 2 diabetes mellitus with other specified complication, with long-term current use of insulin (HCC) Parkinson's disease (CMS/HCC) (HCC) Generalized weakness Darryl Jones II, MD 06/19/221844 Darryl Jones II, MD 06/19/221845 Darryl Jones II, MD 06/20/221940 WASHER STRINGING MACHINE OPERATOR WASHER STRINGING MACHINE OPERATOR WASHER STRINGING MACHINE OPERATOR * Anabel Mathews RN - 06/19/2022 11:11 AM CST She's been feeling really weak and not walking a lot and peeing a lot. Her doctor thinks she has aUTI or dehydrated. They said to come in for blood work and check out her kidney function. She has stage 3 kidney disease. Symptom onset 3 days ago. Wheelchair to triage, typically ambulates with walker. WASHER STRINGING MACHINE OPERATOR documented in this encounter Miscellaneous Notes * Plan of Care - Becky Sims RN - 06/22/2022 8:22 AM CST Goals: Clinical Goals for the Shift: comfort, safety Problem: Health Behavior: Goal: Understanding of [...] to fullest extent possible Outcome: Progressing Summary: WASHER STRINGING MACHINE OPERATOR * Plan of Care - Ellen Haro RN - 06/22/2022 6:43 AM CST Goals: Clinical Goals for the Shift: Safety Summary: Pt remains free from falls this shift. Pt encouraged to call for assistance. Pt ambulates in room with stand by assistance. Steady gait and denies any dizziness. Bed alarm in use for prevention. WASHER STRINGING MACHINE OPERATOR * Plan of Care - Mihaela Murray RN - 06/21/2022 3:38 PM CST Goals: Improvement in weakness Summary: patient states she is feeling better since admission. No c/o pain. Ambulates to br with assist of staff, sat up in chair. Noted, patient refused to work with physical therapy today, encouraged to work with physical therapy tomorrow to evaluate if she is safe to go home, verbalizes understanding. Daughter here, also informed of plan for discharge to home if safe once evaluated by physicaltherapy. No distress noted this shift. WASHER STRINGING MACHINE OPERATOR * Plan of Care - Katalina Chatterjee RN - 06/20/2022 11:14 PM CST Problem: Safety: Goal: Will remain free from falls Outcome: Progressing Problem: Activity: Goal: Mobility will improve Outcome: Not Progressing Problem: Nutritional: Goal: Dietary intake will improve Outcome: Progressing Goals: WASHER STRINGING MACHINE OPERATOR * Plan of Care - Lulú Elizabeth RN - 06/20/2022 12:33 PM CST Goals: Summary: Problem: Health Behavior: Goal: Understanding of [...] improve to fullest extent possible Outcome: Progressing WASHER STRINGING MACHINE OPERATOR documented in this encounter Plan of Treatment Upcoming Encounters Date Type Department Care Team (Latest Contact Info) Description 07/13/2024 9:00 AM HEEL WASHER STRINGING MACHINE OPERATOR Hospital Encounter [facility] [address] [place] [address] Jaya Grier MD [address] [facility] [address] [place] [address] 07/13/2024 9:00 AM HEEL WASHER STRINGING MACHINE OPERATOR - 07/13/2024 9:30 AM HEEL WASHER STRINGING MACHINE OPERATOR Surgery [facility] [address] [place] [address] Jaya Grier MD [address] [facility] [address] [place] [address] ESOPHAGOGASTRODUODENOSCOPY Pending Results Name Type Priority Associated Diagnoses Date /Time Hemoglobin A1c Lab STAT 06/19/2022 11:32 AM HEEL WASHER STRINGING MACHINE OPERATOR Scheduled Orders Name Type Priority Associated Diagnoses Orde r Schedule Hemoglobin A1c Lab STAT Once for 1 Occurrences starting 06/19/2022 until 06/19/2022 Scheduled Procedures Name Priority Associated Diagnoses Date/Ti me ESOPHAGOGASTRODUODENOSCOPY Anemia, unspecified type Gastritis without bleeding, unspecified chronicity, unspecified gastritis type 07/13/2024 9:00 AM HEEL WASHER STRINGING MACHINE OPERATOR COLONOSCOPY Iron deficiency anemia due to chronic blood loss documented as of this encounter Procedures Procedure Name Priority Date/Time Associated Diagnosis Comments POCT GLUCOSE DEVICE Routine 06/22/2022 1 :01 PM HEEL WASHER STRINGING MACHINE OPERATOR POCT GLUCOSE DEVICE Routine 06/22/2022 8 :33 AM HEEL WASHER STRINGING MACHINE OPERATOR EGFR Routine 06/22/2022 7:59 AM HEEL WASHER STRINGING MACHINE OPERATOR DIFFERENTIAL AUTO Routine 06/22/2022 7:5 9 AM HEEL WASHER STRINGING MACHINE OPERATOR CBC WITH AUTO DIFFERENTIAL Routine 06/22/2022 7:59 AM HEEL WASHER STRINGING MACHINE OPERATOR BASIC METABOLIC PANEL Routine 06/22/2022 7:59 AM HEEL WASHER STRINGING MACHINE OPERATOR POCT GLUCOSE DEVICE Routine 06/21/2022 9 :47 PM HEEL WASHER STRINGING MACHINE OPERATOR POCT GLUCOSE DEVICE Routine 06/21/2022 5 :42 PM HEEL WASHER STRINGING MACHINE OPERATOR POCT GLUCOSE DEVICE Routine 06/21/2022 2 :53 PM HEEL WASHER STRINGING MACHINE OPERATOR EGFR Routine 06/21/2022 8:55 AM HEEL WASHER STRINGING MACHINE OPERATOR DIFFERENTIAL AUTO Routine 06/21/2022 8:5 5 AM HEEL WASHER STRINGING MACHINE OPERATOR CBC WITH AUTO DIFFERENTIAL Routine 06/21/2022 8:55 AM HEEL WASHER STRINGING MACHINE OPERATOR BASIC METABOLIC PANEL Routine 06/21/2022 8:55 AM HEEL WASHER STRINGING MACHINE OPERATOR POCT GLUCOSE DEVICE Routine 06/21/2022 8 :30 AM HEEL WASHER STRINGING MACHINE OPERATOR POCT GLUCOSE DEVICE Routine 06/20/2022 9 :16 PM HEEL WASHER STRINGING MACHINE OPERATOR POCT GLUCOSE DEVICE Routine 06/20/2022 6 :01 PM HEEL WASHER STRINGING MACHINE OPERATOR TRANSTHORACIC ECHO (TTE) COMPLETE W DOPPLER/CF WO CONTRAST Routine 06/20/2022 1:37 PM HEEL WASHER STRINGING MACHINE OPERATOR POCT GLUCOSE DEVICE Routine 06/20/2022 1 2:50 PM HEEL WASHER STRINGING MACHINE OPERATOR POCT GLUCOSE DEVICE Routine 06/20/2022 1 1:03 AM HEEL WASHER STRINGING MACHINE OPERATOR POCT GLUCOSE DEVICE Routine 06/20/2022 8 :02 AM HEEL WASHER STRINGING MACHINE OPERATOR EGFR Routine 06/20/2022 5:08 AM HEEL WASHER STRINGING MACHINE OPERATOR DIFFERENTIAL AUTO Routine 06/20/2022 5:0 8 AM HEEL WASHER STRINGING MACHINE OPERATOR PRO B-TYPE NATRIURETIC PEPTIDE Routine 06/20/2022 5:08 AM HEEL WASHER STRINGING MACHINE OPERATOR CBC WITH AUTO DIFFERENTIAL Routine 06/20/2022 5:08 AM HEEL WASHER STRINGING MACHINE OPERATOR BASIC METABOLIC PANEL Routine 06/20/2022 5:08 AM HEEL WASHER STRINGING MACHINE OPERATOR POCT GLUCOSE DEVICE Routine 06/20/2022 1 2:36 AM HEEL WASHER STRINGING MACHINE OPERATOR XR CHEST 1 VIEW IP Routine 06/19/2022 10:56 PM HEEL WASHER STRINGING MACHINE OPERATOR POCT GLUCOSE DEVICE Routine 06/19/2022 8 :59 PM HEEL WASHER STRINGING MACHINE OPERATOR CT ABDOMEN PELVIS WO CONTRAST IP Routine 06/19/2022 8:05 PM HEEL WASHER STRINGING MACHINE OPERATOR POCT GLUCOSE DEVICE Routine 06/19/2022 7 :20 PM HEEL WASHER STRINGING MACHINE OPERATOR TROPONIN T HIGH-SENSITIVITY 6-HOUR Timed 06/19/2022 5:50 PM HEEL WASHER STRINGING MACHINE OPERATOR URINALYSIS AND REFLEX TO MICROSCOPIC AND CULTURE STAT 06/19/2022 4:54 PM HEEL WASHER STRINGING MACHINE OPERATOR URINALYSIS, MICROSCOPIC ONLY STAT 06/19/2022 4:54 PM HEEL WASHER STRINGING MACHINE OPERATOR URINE CULTURE STAT 06/19/2022 4:54 PM HEEL WASHER STRINGING MACHINE OPERATOR POCT GLUCOSE DEVICE Routine 06/19/2022 4 :04 PM HEEL WASHER STRINGING MACHINE OPERATOR TROPONIN T HIGH-SENSITIVITY 4-HR Timed 06/19/2022 3:43 PM HEEL WASHER STRINGING MACHINE OPERATOR TROPONIN T HIGH-SENSITIVITY 2-HOUR Timed 06/19/2022 1:59 PM HEEL WASHER STRINGING MACHINE OPERATOR TROPONIN T HIGH-SENSITIVITY SERIES (BASELINE, 2HR, 4HR, 6HR) STAT 06/19/2022 11:32 AM HEEL WASHER STRINGING MACHINE OPERATOR INFLUENZA A/B, RSV, AND COVID-19 PCR Routine 06/19/2022 11:32 AM HEEL WASHER STRINGING MACHINE OPERATOR EGFR STAT 06/19/2022 11:32 AM HEEL WASHER STRINGING MACHINE OPERATOR DIFFERENTIAL AUTO STAT 06/19/2022 11: 32 AM HEEL WASHER STRINGING MACHINE OPERATOR CBC WITH AUTO DIFFERENTIAL STAT 06/19/2022 11:32 AM HEEL WASHER STRINGING MACHINE OPERATOR HEMOGLOBIN A1C STAT 06/19/2022 11:32 AM HEEL WASHER STRINGING MACHINE OPERATOR COMPREHENSIVE METABOLIC PANEL STAT 06/19/2022 11:32 AM HEEL WASHER STRINGING MACHINE OPERATOR ECG 12-LEAD Routine 06/19/2022 11:28 AM HEEL WASHER STRINGING MACHINE OPERATOR documented in this encounter Results * (ABNORMAL) POCT glucose (06/22/2022 1:01 PM HEEL WASHER STRINGING MACHINE OPERATOR) Glucose, POC 202(H) 70 - 199 mg/dL INLSA Comment:Testing performed by : [address] [address] Blood 06/22/2022 1:01 PM HEEL WASHER STRINGING MACHINE OPERATOR 06/22/2022 1:01 PM HEEL WASHER STRINGING MACHINE OPERATOR Cara Douglas MD LAB POCT ORDERABLES - DEVICE F inal Result Performing Organization Address City/[facility]/ZIP Co de Phone Number [place] [address] [facility] [place] [address] * POCT glucose (06/22/2022 8:33 AM HEEL WASHER STRINGING MACHINE OPERATOR) Glucose, POC 164 70 - 199 mg/dL NILSA Comment:Testing performed by : [address] [address] Blood 06/22/2022 8:33 AM HEEL WASHER STRINGING MACHINE OPERATOR 06/22/2022 8:33 AM HEEL WASHER STRINGING MACHINE OPERATOR us Cara Douglas MD LAB POCT ORDERABLES - DEVICE F inal Result [address] [place] [address] * eGFR (06/22/2022 7:59 AM HEEL WASHER STRINGING MACHINE OPERATOR) eGFR 30 mL/min/1. 73 m2 NILSA RODRIGES [...] last reviewed 2021. Testing performed by: [facility], [address] [place] [address]., [address] Blood 06/22/2022 7:59 AM HEEL WASHER STRINGING MACHINE OPERATOR 06/22/2022 8:50 AM HEEL WASHER STRINGING MACHINE OPERATOR us Cara Douglas MD LAB BLOOD ORDERABLES Final Res ult NILSA [address] [facility] [place] [address] * Differential, auto (06/22/2022 7:59 AM HEEL WASHER STRINGING MACHINE OPERATOR) Neutrophil abs 4.7 1.7 - 6.5 K/cumm NILSA RODRIGES Comment:Testing performed by : [address] [address] Imm gran abs 0.0 0.0 - 0.1 K/cumm NILSA RODRIGES Comment:Testing performed by : [address], [place]., [address] Lymphocyte abs 2.9 0.8 - 3.3 K/cumm CERELLEN Comment:Testing performed by : [address], [place]., [address] Monocyte abs 0.6 0.2 - 0.8 K/cumm CERELLEN Comment:Testing performed by : [address], [place]., [address] Eosinophil abs 0.2 0.0 - 0.5 K/cumm CERELLEN Comment:Testing performed by : [address], [place]., [address] Basophil abs 0.0 0.0 - 0.1 K/cumm [facility] Comment:Testing performed by : [address] [address] Neutrophil pct 56.6 % [facility] Comment: Interpretive Data Percent cell count reference ranges are not reported, since discordance with absolute values may lead to misinterpretation of CBC data. Current Interpretive Data was last revised on 2017. Testing performed by: [address] [address] Imm gran pct 0.2 % [facility] Comment: Interpretive Data Percent cell count reference ranges are not reported, since discordance with absolute values may lead to misinterpretation of CBC data. Current Interpretive Data was last revised on 2017. Testing performed by: [address] [address] Lymphocyte pct 34.3 % [facility] Comment: Interpretive Data Percent cell count reference ranges are not reported, since discordance with absolute values may lead to misinterpretation of CBC data. Current Interpretive Data was last revised on 2017. Testing performed by: [address] [address] Monocyte pct 6.8 % [facility] Comment: Interpretive Data Percent cell count reference ranges are not reported, since discordance with absolute values may lead to misinterpretation of CBC data. Current Interpretive Data was last revised on 2017. Testing performed by: [address] [address] Eosinophil pct 1.9 % NILSA Comment: Interpretive Data Percent cell count reference ranges are not reported, since discordance with absolute values may lead to misinterpretation of CBC data. Current Interpretive Data was last revised on 2017. Testing performed by: [address] [address] Basophil pct 0.2 % NILSA Comment: Interpretive Data Percent cell count reference ranges are not reported, since discordance with absolute values may lead to misinterpretation of CBC data. Current Interpretive Data was last revised on 2017. Testing performed by: [address] [address] Blood 06/22/2022 7:59 AM HEEL WASHER STRINGING MACHINE OPERATOR 06/22/2022 8:50 AM HEEL WASHER STRINGING MACHINE OPERATOR us Cara Douglas MD LAB BLOOD ORDERABLES Final Res ult NILSA [address] Department [place] [address] * (ABNORMAL) Basic metabolic panel (06/22/2022 7:59 AM HEEL WASHER STRINGING MACHINE OPERATOR) Sodium 146(H) 135 - 145 mmol/L NILSA Comment:Testing performed by : [address] [address] Potassium, pl 4.3 3.3 - 4.9 mmol/L NILSA Comment:Testing performed by : [address] [address] Chloride 112(H) 97 - 110 mmol/L NILSA Comment:Testing performed by : [address] [address] CO2 25 22 - 32 mmol/L NILSA Comment:Testing performed by : [address] [address] Anion gap 9 2 - 15 mmol/L NILSA Comment:Testing performed by : [address] [address] BUN 40(H) 8 - 25 mg/dL NILSA ZAHIRA Comment:Testing performed by : [address] [address] Creatinine 1.80(H) 0.60 - 1.10 mg/dL NILSA RODRIGES Comment:Testing performed by : [address] [address] Glucose 141 70 - 199 mg/dL NILSA RODRIGES Comment: [...] classification and Diagnosis of Diabetes Diabetes Care 2017;40 (Suppl. 1):S11. Current interpretive data was last revised 2017. Testing performed by: [address] [address] Calcium 8.8 8.5 - 10.3 mg/dL NILSA Comment:Testing performed by : [address] [address] Blood 06/22/2022 7:59 AM HEEL WASHER STRINGING MACHINE OPERATOR 06/22/2022 8:50 AM HEEL WASHER STRINGING MACHINE OPERATOR us Cara Douglas MD LAB BLOOD ORDERABLES Final Res ult NILSA [address] [facility] Department [place] [address] * (ABNORMAL) CBC with auto differential (06/22/2022 7:59 AM HEEL WASHER STRINGING MACHINE OPERATOR) WBC 8.4 3.8 - 9.9 K/cumm NILSA RODRIGES Comment:Testing performed by : [address] [address] Hgb 8.4(L) 11.9 - 15.5 g/dL NILSA RODRIGES Comment:Testing performed by : [address] [address] Hct 26.5(L) 35.6 - 45.5 % NILSA RODRIGES Comment:Testing performed by : [address] [address] Plt 259 150 - 400 K/cumm NILSA RODRIGES Comment:Testing performed by : [address] [address] MPV 11.1 9.1 - 12.3 fL NILSA RODRIGES Comment:Testing performed by : [address], [address] RBC 2.83(L) 3.90 - 5.20 M/cumm NILSA RODRIGES Comment:Testing performed by : [address], [address] MCV 93.6 81.3 - 96.4 fL NILSA Comment:Testing performed by : [address] [address] MCH 29.7 27.1 - 33.3 pg NILSA RODRIGES Comment:Testing performed by : [address], [address] MCHC 31.7(L) 32.3 - 35.7 g/dL NILSA Comment:Testing performed by : [address], [address] RDW CV 14.6 11.1 - 14.9 % NILSA Comment:Testing performed by : [address], [address] RDW SD 50.0(H) 35.7 - 48.1 fL NILSA Comment:Testing performed by : [address] [address] NRBC abs 0.00 0.00 - 0.01 K/cumm NILSA Comment:Testing performed by : [address], [address] Blood 06/22/2022 7:59 AM HEEL WASHER STRINGING MACHINE OPERATOR 06/22/2022 8:50 AM HEEL WASHER STRINGING MACHINE OPERATOR us Cara Douglas MD LAB BLOOD ORDERABLES Final Res ult NILSA RODRIGES [address] Department [place] [address] * POCT glucose (06/21/2022 9:47 PM HEEL WASHER STRINGING MACHINE OPERATOR) Glucose, POC 130 70 - 199 mg/dL NILSA Comment:Testing performed by : [address] [address] Blood 06/21/2022 9:47 PM HEEL WASHER STRINGING MACHINE OPERATOR 06/21/2022 9:47 PM HEEL WASHER STRINGING MACHINE OPERATOR us Cara Douglas MD LAB POCT ORDERABLES - DEVICE F inal Result [address] [address] * POCT glucose (06/21/2022 5:42 PM HEEL WASHER STRINGING MACHINE OPERATOR) Glucose, POC 182 70 - 199 mg/dL NILSA Comment:Testing performed by : [address] [address] Blood 06/21/2022 5:42 PM HEEL WASHER STRINGING MACHINE OPERATOR 06/21/2022 5:42 PM HEEL WASHER STRINGING MACHINE OPERATOR us Cara Douglas MD LAB POCT ORDERABLES - DEVICE F inal Result Performing Organization Address City/[facility]/ZIP Co de Phone Number [address] [place] [address] * POCT glucose (06/21/2022 2:53 PM HEEL WASHER STRINGING MACHINE OPERATOR) Glucose, POC 185 70 - 199 mg/dL NILSA Comment:Testing performed by : [address] [address] Blood 06/21/2022 2:53 PM HEEL WASHER STRINGING MACHINE OPERATOR 06/21/2022 2:53 PM HEEL WASHER STRINGING MACHINE OPERATOR Result Shantel Douglas MD LAB POCT ORDERABLES - DEVICE F inal Result [address] [place] [address] * eGFR (06/21/2022 8:55 AM HEEL WASHER STRINGING MACHINE OPERATOR) [facility] eGFR 28 mL/min/1. 73 m2 NILSA RODRIGES Comment: Interpretive [...] last reviewed 2021. Testing performed by: [facility], [address] [place] [address]., [address] Blood 06/21/2022 8:55 AM HEEL WASHER STRINGING MACHINE OPERATOR 06/21/2022 9:33 AM HEEL WASHER STRINGING MACHINE OPERATOR us Cara Douglas MD LAB BLOOD ORDERABLES Final Res ult NILSA [address] [facility] Department [place] [address] * Differential, auto (06/21/2022 8:55 AM HEEL WASHER STRINGING MACHINE OPERATOR) [facility] Neutrophil abs 4.6 1.7 - 6.5 K/cumm CERNER Comment:Testing performed by : [facility], [address] [place] [address], [place]., [address] Imm gran abs 0.0 0.0 - 0.1 K/cumm [facility] Comment:Testing performed by : [address], [place]., [address] Lymphocyte abs 2.6 0.8 - 3.3 K/cumm [facility] Comment:Testing performed by : [address] [address] Monocyte abs 0.6 0.2 - 0.8 K/cumm [facility] Comment:Testing performed by : [address] [address] Eosinophil abs 0.2 0.0 - 0.5 K/cumm [facility] Comment:Testing performed by : [address] [address] Basophil abs 0.0 0.0 - 0.1 K/cumm [facility] Comment:Testing performed by : [address] [address] Neutrophil pct 58.2 % [facility] Comment: Interpretive Data Percent cell count reference ranges are not reported, since discordance with absolute values may lead to misinterpretation of CBC data. Current Interpretive Data was last revised on 2017. Testing performed by: [address] [address] Imm gran pct 0.3 % [facility] Comment: Interpretive Data Percent cell count reference ranges are not reported, since discordance with absolute values may lead to misinterpretation of CBC data. Current Interpretive Data was last revised on 2017. Testing performed by: [address] [address] Lymphocyte pct 32.1 % CERNER Comment: Interpretive Data Percent cell count reference ranges are not reported, since discordance with absolute values may lead to misinterpretation of CBC data. Current Interpretive Data was last revised on 2017. Testing performed by: [address] [address] Monocyte pct 7.0 % CERNER Comment: Interpretive Data Percent cell count reference ranges are not reported, since discordance with absolute values may lead to misinterpretation of CBC data. Current Interpretive Data was last revised on 2017. Testing performed by: [address] [address] Eosinophil pct 1.9 % NILSA Comment: Interpretive Data Percent cell count reference ranges are not reported, since discordance with absolute values may lead to misinterpretation of CBC data. Current Interpretive Data was last revised on 2017. Testing performed by: [address] [address] Basophil pct 0.5 % NILSA Comment: Interpretive Data Percent cell count reference ranges are not reported, since discordance with absolute values may lead to misinterpretation of CBC data. Current Interpretive Data was last revised on 2017. Testing performed by: [address] [address] Blood 06/21/2022 8:55 AM HEEL WASHER STRINGING MACHINE OPERATOR 06/21/2022 9:36 AM HEEL WASHER STRINGING MACHINE OPERATOR us Cara Douglas MD LAB BLOOD ORDERABLES Final Res ult [facility] Department [place] [address] * (ABNORMAL) Basic metabolic panel (06/21/2022 8:55 AM HEEL WASHER STRINGING MACHINE OPERATOR) Sodium 143 135 - 145 mmol/L NILSA Comment:Testing performed by : [address] [address] Potassium, pl 4.1 3.3 - 4.9 mmol/L NILSA Comment:Testing performed by : [address] [address] Chloride 109 97 - 110 mmol/L NILSA Comment:Testing performed by : [address] [address] CO2 25 22 - 32 mmol/L NILSA Comment:Testing performed by : [address] [address] Anion gap 9 2 - 15 mmol/L NILSA Comment:Testing performed by : [address] [address] BUN 47(H) 8 - 25 mg/dL NILSA Comment:Testing performed by : [address] [address] Creatinine 1.90(H) 0.60 - 1.10 mg/dL NILSA Comment:Testing performed by : [address] [address] Glucose 135 70 - 199 mg/dL NILSA Comment: Interpretive [...] classification and Diagnosis of Diabetes Diabetes Care 2017;40 (Suppl. 1):S11. Current interpretive data was last revised 2017. Testing performed by: [address] [address] Calcium 8.8 8.5 - 10.3 mg/dL NILSA Comment:Testing performed by : [address] [address] Blood 06/21/2022 8:55 AM HEEL WASHER STRINGING MACHINE OPERATOR 06/21/2022 9:33 AM HEEL WASHER STRINGING MACHINE OPERATOR us Cara Douglas MD LAB BLOOD ORDERABLES Final Res ult [facility] [address] [facility] Department [place] [address] * (ABNORMAL) CBC with auto differential (06/21/2022 8:55 AM HEEL WASHER STRINGING MACHINE OPERATOR) Pathologist [facility] WBC 8.0 3.8 - 9.9 K/cumm NILSA Comment:Testing performed by : [address] [address] Hgb 8.7(L) 11.9 - 15.5 g/dL NILSA Comment:Testing performed by : [address] [address] Hct 27.7(L) 35.6 - 45.5 % NILSA Comment:Testing performed by : [address] [address] Plt 276 150 - 400 K/cumm NILSA Comment:Testing performed by : [address] [address] MPV 10.9 9.1 - 12.3 fL NILSA Comment:Testing performed by : [address], [address] RBC 2.95(L) 3.90 - 5.20 M/cumm NILSA Comment:Testing performed by : [address] [address] MCV 93.9 81.3 - 96.4 fL NILSA Comment:Testing performed by : [address] [address] MCH 29.5 27.1 - 33.3 pg NILSA Comment:Testing performed by : [address] [address] MCHC 31.4(L) 32.3 - 35.7 g/dL NILSA Comment:Testing performed by : [address] [address] RDW CV 14.6 11.1 - 14.9 % NILSA Comment:Testing performed by : [address], [address] RDW SD 50.8(H) 35.7 - 48.1 fL NILSA Comment:Testing performed by : [address] [address] NRBC abs 0.00 0.00 - 0.01 K/cumm NILSA Comment:Testing performed by : [address] [address] Blood 06/21/2022 8:55 AM HEEL WASHER STRINGING MACHINE OPERATOR 06/21/2022 9:36 AM HEEL WASHER STRINGING MACHINE OPERATOR us Cara Douglas MD LAB BLOOD ORDERABLES Final Res ult Performing Organization Address [facility]/ZIP Co de Phone Number NILSA [address] [place] [address] * POCT glucose (06/21/2022 8:30 AM HEEL WASHER STRINGING MACHINE OPERATOR) Glucose, POC 138 70 - 199 mg/dL NILSA RODRIGES Comment:Testing performed by : [address] [address] Blood 06/21/2022 8:30 AM HEEL WASHER STRINGING MACHINE OPERATOR 06/21/2022 8:30 AM HEEL WASHER STRINGING MACHINE OPERATOR Result [facility] us Cara Douglas MD LAB POCT ORDERABLES - DEVICE F inal Result Performing Organization Address [facility] Co de Phone Number CARLOS ENRI[address] [address] * POCT glucose (06/20/2022 9:16 PM HEEL WASHER STRINGING MACHINE OPERATOR) Glucose, POC 198 70 - 199 mg/dL NILSA Comment:Testing performed by : [address] [address] Glucose comment 1 Use This Result NILSA RODRIGES Comment:Testing performed by : [address] [address] Blood 06/20/2022 9:16 PM HEEL WASHER STRINGING MACHINE OPERATOR 06/20/2022 9:16 PM HEEL WASHER STRINGING MACHINE OPERATOR Result [facility] Cara Douglas MD LAB POCT ORDERABLES - DEVICE F inal Result Performing Organization Address [facility] Co de Phone Number CARLOS ENRIQUE[address] [place] [address] * POCT glucose (06/20/2022 6:01 PM HEEL WASHER STRINGING MACHINE OPERATOR) Glucose, POC 119 70 - 199 mg/dL NILSA RODRIGES Comment:Testing performed by : [address] [address] Blood 06/20/2022 6:01 PM HEEL WASHER STRINGING MACHINE OPERATOR 06/20/2022 6:01 PM HEEL WASHER STRINGING MACHINE OPERATOR us Cara Douglas MD LAB POCT ORDERABLES - DEVICE F inal Result NILSA RODRIGES [address] [facility] [place] [address] * TRANSTHORACIC ECHO (TTE) COMPLETE W DOPPLER/CF WO CONTRAST (06/20/2022 1:37 PM HEEL WASHER STRINGING MACHINE OPERATOR) Anatomical Region Laterality Modality Ultrasound 06/20/2022 1:37 PM HEEL WASHER STRINGING MACHINE OPERATOR Narrative 06/20/2022 5:33 PM HEEL WASHER STRINGING MACHINE OPERATOR ? Adult Echocardiogram + ----- + :Name: SIXTO CHAKRABORTY ? Study Date: 06/20/2022 ?Status: MHE ?: : ?Patient Location: MHE 5 MEDSUR^[id number]^MHeight: 62 in ?: : ?Weight: 155 lbBP: 127/62 mmHg: :: 1950 ? Gender: Female ?BSA: 1.7 m2 ?: :Reason For Study: SOB ?: :Ordering Physician: LEONORA, ? : :NIKHIL ? : : ? : :Performed By: Ana Luisa ?: :Loco, RCS ?: + ----- + Procedure A two-dimensional transthoracic echocardiogram with color flow and Doppler was performed. Left Ventricle The left ventricle is normal in size. There is mild concentric left ventricular hypertrophy. Ejection Fraction = 60-65%. The left ventricular wall motion is normal. Right Ventricle The right ventricle is grossly normal size. There is normal right ventricular wall thickness. The right ventricular systolic function is normal. The right ventricular wall motion is normal. Atria The left atrium is mildly dilated. Right atrial size is normal. The interatrial septum is intact with no evidence for an atrial septal defect. Mitral Valve The mitral valve leaflets appear normal. There is no evidence of stenosis, fluttering, or prolapse. There is trace mitral regurgitation. Tricuspid Valve The tricuspid valve is normal. There is trace tricuspid regurgitation. Aortic Valve Aortic valve structure is normal. No aortic stenosis . Pulmonic Valve The pulmonic valve is not well seen, but is grossly normal. Trace pulmonic valvular regurgitation. Great Vessels The aortic root is normal size. The pulmonary artery is normal size. The aortic arch is normal. IVC appears normal in size. Pericardium Trace pericardial effusion. Anterior pericardial fat pad noted. Diastology E/E prime ratio is 8 -15 which is in the indeterminate zone. Interpretation Summary Ejection Fraction = 60-65%. The left atrium is mildly dilated. There is trace tricuspid regurgitation. No aortic stenosis . Trace pulmonic valvular regurgitation. Anterior pericardial fat pad noted. + + :Measurements with Normals ?: :IVSd: ?(0.6-1.2 ?? LVIDd: ?(3.5-5.7 ? : :0.83 cm ?cm) ?4.0 cm ?cm) ?: :LVPWd: ? (0.6-1.1 ?? LVIDs: ?(3.1-4.6 ?? LA dimension: ?(1.9-4.0 ?? : :0.98 cm ?cm) ?2.5 cm ?cm) ?3.3 cm ? cm) ?: + + MMode/2D Measurements & Calculations LVPWs: 0.59 cm ? FS: 37.1 % ?LVOT diam: 1.9 cm ? EDV(Teich): 67.9 ml ? LVOT area: 2.8 cm2 ? ESV(Teich): 22.0 ml Doppler Measurements & Calculations MV E max leonard: ?Ao V2 max: ? LV V1 max PG: ?PA V2 max: 80.1 cm/sec ?145.0 cm/sec ? 6.1 mmHg ? 145.0 cm/sec MV A max leonard: ?Ao max P.4 mmHgLV V1 max: ? PA max P.4 mmHg 108.0 cm/sec ? ALEXEY(V,D): 2.4 cm2 ??123.0 cm/sec MV E/A: 0.74 ? TR max leonard: 236.0 cm/sec TR max P.3 mmHg Electronically signed by: Juan Mathur MD 06/20/2022 05:33 PM Procedure Note Juan Mathur MD - 06/20/2022 Adult Echocardiogram + ----- + :Name: SIXTO CHAKRABORTY Study Date: 06/20/2022tatus: MHE : : Patient Location: [address]^[id number]^MHeight: 62 in : : : 155 lbBP: 127/62 mmHg: :: 1950 Gender: FemaleBSA: 1.7 m2 : :Reason For Study: SOB: :Ordering Physician: LEONORA,: :NIKHIL: :: :Performed By: Ana Luisa: :NAHUN Adan: + ----- + Procedure A two-dimensional transthoracic echocardiogram with color flow and Dopplerwas performed. Left Ventricle The left ventricle is normal in size. There is mild concentric left ventricular hypertrophy. Ejection Fraction = 60-65%. The left ventricularwall motion is normal. Right Ventricle The right ventricle is grossly normal size. There is normal rightventricular wall thickness. The right ventricular systolic function is normal. Theright ventricular wall motion is normal. Atria The left atrium is mildly dilated. Right atrial size is normal. The interatrial septum is intact with no evidence for an atrial septaldefect. Mitral Valve The mitral valve leaflets appear normal. There is no evidence ofstenosis, fluttering, or prolapse. There is trace mitral regurgitation. Tricuspid Valve The tricuspid valve is normal. There is trace tricuspid regurgitation. Aortic Valve Aortic valve structure is normal. No aortic stenosis . Pulmonic Valve The pulmonic valve is not well seen, but is grossly normal. Tracepulmonic valvular regurgitation. Great Vessels The aortic root is normal size. The pulmonary artery is normal size. The aortic arch is normal. IVC appears normal in size. Pericardium Trace pericardial effusion. Anterior pericardial fat pad noted. Diastology E/E prime ratio is 8 -15 which is in the indeterminate zone. Interpretation Summary Ejection Fraction = 60-65%. The left atrium is mildly dilated. There is trace tricuspid regurgitation. No aortic stenosis . Trace pulmonic valvular regurgitation. Anterior pericardial fat pad noted. + + :Measurements with Normals: :IVSd: (0.6-1.2 LVIDd: (3.5-5.7: :0.83 cm cm) 4.0 cm cm): :LVPWd: (0.6-1.1 LVIDs: (3.1-4.6 LA dimension:(1.9-4.0 : :0.98 cm cm) 2.5 cm cm) 3.3 cm cm): + + MMode/2D Measurements & Calculations LVPWs: 0.59 cm FS: 37.1 % LVOT diam: 1.9 cm EDV(Teich): 67.9 ml LVOT area: 2.8 cm2 ESV(Teich): 22.0 ml Doppler Measurements & Calculations MV E max leonard: Ao V2 max: LV V1 max PG: PA V2 max: 80.1 cm/sec 145.0 cm/sec 6.1 mmHg 145.0 cm/sec MV A max leonard: Ao max P.4 mmHgLV V1 max: PA max P.4mmHg 108.0 cm/sec AELXEY(V,D): 2.4 cm2 123.0 cm/sec MV E/A: 0.74 TR max leonard: 236.0 cm/sec TR max P.3 mmHg Electronically signed by: Juan Mathur MD 06/20/2022 05:33 PM us Nikhil Weiss DO CV ECHO PROCEDURES Final Resu lt * (ABNORMAL) POCT glucose (06/20/2022 12:50 PM HEEL WASHER STRINGING MACHINE OPERATOR) [facility] Glucose, POC 202(H) 70 - 199 mg/dL NILSA Comment:Testing performed by : [facility], [address] [place] [address], [address] Blood 06/20/2022 12:5 0 PM HEEL WASHER STRINGING MACHINE OPERATOR 06/20/2022 12:50 PM HEEL WASHER STRINGING MACHINE OPERATOR us Cara Douglas MD LAB POCT ORDERABLES - DEVICE F inal Result NILSA [address] [place] [address] * (ABNORMAL) POCT glucose (06/20/2022 11:03 AM HEEL WASHER STRINGING MACHINE OPERATOR) Glucose, POC 218(H) 70 - 199 mg/dL NILSA Comment:Testing performed by : [address] [address] Glucose comment 1 Use This Result NILSA Comment:Testing performed by : [address] [address] Blood 06/20/2022 11:0 3 AM HEEL WASHER STRINGING MACHINE OPERATOR 06/20/2022 11:03 AM HEEL WASHER STRINGING MACHINE OPERATOR Cara Douglas MD LAB POCT ORDERABLES - DEVICE F inal Result Performing Organization Address [facility] de Phone Number CARLOS ENRIQUE[address] [address] * POCT glucose (06/20/2022 8:02 AM HEEL WASHER STRINGING MACHINE OPERATOR) [facility] Glucose, POC 172 70 - 199 mg/dL NILSA Comment:Testing performed by : [address] [address] Glucose comment 1 Use This Result NILSA Comment:Testing performed by : [address] [address] Blood 06/20/2022 8:02 AM HEEL WASHER STRINGING MACHINE OPERATOR 06/20/2022 8:02 AM HEEL WASHER STRINGING MACHINE OPERATOR us Cara Douglas MD LAB POCT ORDERABLES - DEVICE F inal Result Performing Organization Address City/[facility] Co de Phone Number CARLOS ENRIQUE[address] [address] * eGFR (06/20/2022 5:08 AM HEEL WASHER STRINGING MACHINE OPERATOR) [facility] eGFR 22 mL/min/1. 73 m2 NILSA Comment: Interpretive Data [...] was last reviewed 2021. Testing performed by: [address] [address] Blood 06/20/2022 5:08 AM HEEL WASHER STRINGING MACHINE OPERATOR 06/20/2022 5:12 AM HEEL WASHER STRINGING MACHINE OPERATOR us Cara Douglas MD LAB BLOOD ORDERABLES Final Res ult Performing Organization Address City/State/[facility] Co de Phone Number CARLOS ENRIQUE[facility] [address] [facility] Department [place] [address] * Differential, auto (06/20/2022 5:08 AM HEEL WASHER STRINGING MACHINE OPERATOR) Neutrophil abs 5.6 1.7 - 6.5 K/cumm NILSA RODRIGES Comment:Testing performed by : [address] [address] Imm gran abs 0.0 0.0 - 0.1 K/cumm NILSA RODRIGES Comment:Testing performed by : [address] [address] Lymphocyte abs 2.4 0.8 - 3.3 K/cumm [facility] Comment:Testing performed by : [address] [address] Monocyte abs 0.7 0.2 - 0.8 K/cumm [facility] Comment:Testing performed by : [address], [place]., [address] Eosinophil abs 0.2 0.0 - 0.5 K/cumm [facility] Comment:Testing performed by : [address], [place]., [address] Basophil abs 0.0 0.0 - 0.1 K/cumm [facility] Comment:Testing performed by : [address] [address] Neutrophil pct 63.3 % [facility] Comment: Interpretive Data Percent cell count reference ranges are not reported, since discordance with absolute values may lead to misinterpretation of CBC data. Current Interpretive Data was last revised on 2017. Testing performed by: [address] [address] Imm gran pct 0.2 % [facility] Comment: Interpretive Data Percent cell count reference ranges are not reported, since discordance with absolute values may lead to misinterpretation of CBC data. Current Interpretive Data was last revised on 2017. Testing performed by: [address] [address] Lymphocyte pct 27.4 % [facility] Comment: Interpretive Data Percent cell count reference ranges are not reported, since discordance with absolute values may lead to misinterpretation of CBC data. Current Interpretive Data was last revised on 2017. Testing performed by: [address] [address] Monocyte pct 7.3 % [facility] Comment: Interpretive Data Percent cell count reference ranges are not reported, since discordance with absolute values may lead to misinterpretation of CBC data. Current Interpretive Data was last revised on 2017. Testing performed by: [address] [address] Eosinophil pct 1.7 % [facility] Comment: Interpretive Data Percent cell count reference ranges are not reported, since discordance with absolute values may lead to misinterpretation of CBC data. Current Interpretive Data was last revised on 2017. Testing performed by: [facility], [address] [place] [address]., [address] Basophil pct 0.1 % NILSA RODRIGES Comment: Interpretive Data Percent cell count reference ranges are not reported, since discordance with absolute values may lead to misinterpretation of CBC data. Current Interpretive Data was last revised on 2017. Testing performed by: [facility], [address] [place] [address]., [address] Blood 06/20/2022 5:08 AM HEEL WASHER STRINGING MACHINE OPERATOR 06/20/2022 5:12 AM HEEL WASHER STRINGING MACHINE OPERATOR us Cara Douglas MD LAB BLOOD ORDERABLES Final Res ult NILSA [address] [facility] Department [place] [address] * Pro B-type natriuretic peptide (06/20/2022 5:08 AM HEEL WASHER STRINGING MACHINE OPERATOR) NT-proBNP 125 <=300 pg/mL NILSA RODRIGES Comment: Interpretive Comments: [...] 2. Melisa BAILON, Audelia MTZ. J. AM Ynony Cardiol: Cardiovasc Imag. 2009;2: 216- 225. Interpretive Data Last Revised Date: 2018. Testing performed by: [address] [address] Blood 06/20/2022 5:08 AM HEEL WASHER STRINGING MACHINE OPERATOR 06/20/2022 5:12 AM HEEL WASHER STRINGING MACHINE OPERATOR us Nikhil Weiss DO LAB BLOOD ORDERABLES Final Re sult NILSA [address] [facility] Department [place] [address] * (ABNORMAL) Basic metabolic panel (06/20/2022 5:08 AM HEEL WASHER STRINGING MACHINE OPERATOR) Sodium 141 135 - 145 mmol/L NILSA RODRIGES Comment:Testing performed by : [address] [address] Potassium, pl 3.7 3.3 - 4.9 mmol/L NILSA RODRIGES Comment:Testing performed by : [address] [address] Chloride 104 97 - 110 mmol/L NILSA RODRIGES Comment:Testing performed by : [address] [address] CO2 27 22 - 32 mmol/L NILSA Comment:Testing performed by : [address] [address] Anion gap 10 2 - 15 mmol/L NILSA Comment:Testing performed by : [address] [address] BUN 56(H) 8 - 25 mg/dL NILSA Comment:Testing performed by : [address] [address] Creatinine 2.30(H) 0.60 - 1.10 mg/dL NILSA Comment:Testing performed by : [address] [address] Glucose 141 70 - 199 mg/dL NILSA Comment: Interpretive [...] classification and Diagnosis of Diabetes Diabetes Care 2017;40 (Suppl. 1):S11. Current interpretive data was last revised 2017. Testing performed by: [address] [address] Calcium 8.9 8.5 - 10.3 mg/dL NILSA Comment:Testing performed by : [address] [address] Blood 06/20/2022 5:08 AM HEEL WASHER STRINGING MACHINE OPERATOR 06/20/2022 5:12 AM HEEL WASHER STRINGING MACHINE OPERATOR us Cara Douglas MD LAB BLOOD ORDERABLES Final Res ult NILSA [address] [facility] Department of Laboratories [place], [place] [id number] * (ABNORMAL) CBC with auto differential (06/20/2022 5:08 AM HEEL WASHER STRINGING MACHINE OPERATOR) WBC 8.9 3.8 - 9.9 K/cumm NILSA Comment:Testing performed by : [address] [address] Hgb 8.4(L) 11.9 - 15.5 g/dL NILSA Comment:Testing performed by : [address] [address] Hct 26.9(L) 35.6 - 45.5 % NILSA Comment:Testing performed by : [address] [address] Plt 256 150 - 400 K/cumm NILSA Comment:Testing performed by : [address], [address] MPV 10.6 9.1 - 12.3 fL NILSA Comment:Testing performed by : [address], [address] RBC 2.90(L) 3.90 - 5.20 M/cumm NILSA Comment:Testing performed by : [address], [address] MCV 92.8 81.3 - 96.4 fL NILSA Comment:Testing performed by : [address], [address] MCH 29.0 27.1 - 33.3 pg NILSA Comment:Testing performed by : [address], [address] MCHC 31.2(L) 32.3 - 35.7 g/dL NILSA Comment:Testing performed by : [address], [address] RDW CV 14.4 11.1 - 14.9 % NILSA Comment:Testing performed by : [address], [address] RDW SD 48.6(H) 35.7 - 48.1 fL NILSA Comment:Testing performed by : [address] [address] NRBC abs 0.00 0.00 - 0.01 K/cumm NILSA Comment:Testing performed by : [address], [address] Blood 06/20/2022 5:08 AM HEEL WASHER STRINGING MACHINE OPERATOR 06/20/2022 5:12 AM HEEL WASHER STRINGING MACHINE OPERATOR Cara Douglas MD LAB BLOOD ORDERABLES Final Res ult Performing Organization Address [facility] Co de Phone Number [place] [id number] [place] [address] * POCT glucose (06/20/2022 12:36 AM HEEL WASHER STRINGING MACHINE OPERATOR) [facility] Signature Glucose, POC 136 70 - 199 mg/dL [facility] Comment:Testing performed by : [facility], [address] [place] [address], [address] Blood 06/20/2022 12:3 6 AM HEEL WASHER STRINGING MACHINE OPERATOR 06/20/2022 12:36 AM HEEL WASHER STRINGING MACHINE OPERATOR Nikhil Weiss DO LAB POCT ORDERABLES - DEVICE Final Result Performing Organization Address [facility] de Phone Number [address] [address] * XR Chest 1 View (06/19/2022 10:56 PM HEEL WASHER STRINGING MACHINE OPERATOR) Anatomical Region Laterality Modality Body, Chest N/A Computed Radiogr aphy 06/20/2022 12:0 3 AM HEEL WASHER STRINGING MACHINE OPERATOR Narrative 06/20/2022 12:08 AM HEEL WASHER STRINGING MACHINE OPERATOR EXAM DESCRIPTION: ?? XR CHEST 1 VIEW REASON FOR STUDY: ?? Generalized weakness for 3 days. TECHNIQUE: ?? AP ??radiographic view of the chest acquired. COMPARISON: ?? 04/29/2022 FINDINGS: LUNGS/PLEURA: ?? No focal consolidation or pneumothorax. No pleural effusion. HEART/MEDIASTINUM: ?? Heart size is normal. Normal mediastinal and hilar contours. HARDWARE/LINES/TUBES: ?? None. BONES: ?? Decreased bilateral subacromial space. ??No acute osseous findings. OTHER: ?? No other significant finding. IMPRESSION: ?? No acute cardiopulmonary abnormality. THIS IS AN ELECTRONICALLY VERIFIED FINAL REPORT 06/20/2022 12:08 AM - Electronically signed by ??Larry Perez M.D. ML: ML D: ??06/20/2022 12:08 AM T: ??06/20/2022 12:08 AM Report ID: [id number] Reading Location: ??[id number] Procedure Note Larry Perez MD - 06/20/2022 EXAM DESCRIPTION: XR CHEST 1 VIEW REASON FOR STUDY: Generalized weakness for 3 days. TECHNIQUE: AP radiographic view of the chest acquired. COMPARISON: 04/29/2022 FINDINGS: LUNGS/PLEURA: No focal consolidation or pneumothorax. Nopleural effusion. HEART/MEDIASTINUM: Heart size is normal. Normal mediastinal and hilar contours. HARDWARE/LINES/TUBES: None. BONES: Decreased bilateral subacromial space. No acute osseousfindings. OTHER: No other significant finding. IMPRESSION: No acute cardiopulmonary abnormality. THIS IS AN ELECTRONICALLY VERIFIED FINAL REPORT 06/20/2022 12:08 AM - Electronically signed by Larry Perez M.D. ML: ML Report ID: [id number] Reading Location: [id number] Nikhil Wilber Weiss DO IMG XR PROCEDURES Final Resul t * POCT glucose (06/19/2022 8:59 PM HEEL WASHER STRINGING MACHINE OPERATOR) [facility] Signature Glucose, POC 176 70 - 199 mg/dL NILSA RODRIGES Comment:Testing performed by : [facility], [address] [place] [address]., [address] Blood 06/19/2022 8:59 PM HEEL WASHER STRINGING MACHINE OPERATOR 06/19/2022 8:59 PM HEEL WASHER STRINGING MACHINE OPERATOR Nikhil Weiss DO LAB POCT ORDERABLES - DEVICE Final Result NILSA RODRIGES [address] [facility] Department [place] [address] * CT Abdomen Pelvis WO Contrast (06/19/2022 8:05 PM HEEL WASHER STRINGING MACHINE OPERATOR) Anatomical Region Laterality Modality Body N/A Computed Tomogra phy 06/19/2022 9:23 PM HEEL WASHER STRINGING MACHINE OPERATOR Narrative 06/19/2022 9:29 PM HEEL WASHER STRINGING MACHINE OPERATOR EXAM DESCRIPTION: ?? CT ABDOMEN PELVIS WO CONTRAST REASON FOR STUDY: ?? UTI, worsening renal function, decreased urine output. ?? generalized weakness for 3 days. ??Patient also states that she has been urinating a lot a going to the bathroom a lot more than normal ?? TECHNIQUE: CT scan of the abdomen and pelvis performed without intravenous and ??without ??oral contrast using helical scanning technique. Reconstructed coronal and sagittal MPR images reviewed. All images stored on PACS. ?? Automated exposure control was used as a dose optimization technique for this examination. COMPARISON: ?? 01/19/2017 FINDINGS: The sensitivity for detection of visceral lesions is diminished without the use of intravenous contrast. LOWER CHEST: ?? No significant pulmonary abnormalities. No effusion. LIVER: ?? The liver is normal in size. ??Chronic undulating surface superior may represent chronic underlying liver disease. GALLBLADDER: ?? Gallbladder is partially distended. ??No CT evidence of acute cholecystitis. BILE DUCTS: ?? No intrahepatic or extrahepatic ductal dilatation. SPLEEN: ?? Spleen is normal in size. PANCREAS: ?? Moderate atrophy of the pancreas. ??No significant peripancreatic stranding or main ductal dilatation. ADRENALS: ?? Normal. KIDNEYS/URINARY TRACT: ?? The kidneys are normal in size. ??No hydronephrosis. ?? No stone. ??No significant perinephric stranding. ??Urinary bladder is distended. ??No substantial thickening or stranding. ?? GI: ?? Sigmoid diverticulosis without CT evidence of diverticulitis. ??Stool throughout the colon which appears nondilated. ??The appendix is nondilated. ?? The small bowel is nondilated without evidence of bowel obstruction. ??The stomach is distended with ingested material. PERITONEUM: ?? Laxity of the anterior abdominal wall with rectus diastasis. ??No free air or ascites is seen. ??No mesenteric lymphadenopathy RETROPERITONEUM: ?? No retroperitoneal or inguinal lymphadenopathy. REPRODUCTIVE: ?? No significant abnormality. VASCULATURE: ?? Aorta is normal caliber. MUSCULOSKELETAL: ?? Chronic cutaneous/subcutaneous nodule within the lower midabdomen slightly increased in size compared to 2017, likely benign. ??This measures 13 x 10 mm, previously 11 x 9 mm (151). ?? No acute fracture seen. ?? Stable irregularity and sclerosis of the inferior endplate of L4 compared to a lumbar spine CT dated 08/08/2021. OTHER: ?? No other abnormality. IMPRESSION: 1. ?? No gross CT finding to explain the patient's symptoms. REFERENCE: Unless otherwise specified, no follow-up imaging is recommended for incidental renal and adrenal lesions per consensus recommendations based on imaging criteria. Further lab evaluation could be pursued based on clinical findings. Management of the Incidental Renal Mass on CT: A White Paper of the ACR Incidental Findings Committee. J Am Yonny Radiol. 2018 Jul;15(2):264-273. Management of Incidental Adrenal Masses: A White Paper of the ACR Incidental Findings Committee. J Am Yonny Radiol. 2017 Jan;14(8):3519-6900. THIS IS AN ELECTRONICALLY VERIFIED FINAL REPORT 06/19/2022 9:29 PM - Electronically signed by ??Shane Miller M.D. AG: TON D: ??06/19/2022 9:29 PM T: ??06/19/2022 9:29 PM Report ID: [id number] Reading Location: ??[id number] Procedure Note Shane Miller MD - 06/19/2022 EXAM DESCRIPTION: CT ABDOMEN PELVIS WO CONTRAST REASON FOR STUDY: UTI, worsening renal function, decreased urine output. generalized weakness for 3 days. Patient also states that she has been urinating a lot a going to the bathroom a lot more than normal TECHNIQUE: CT scan of the abdomen and pelvis performed without intravenousand without oral contrast using helical scanning technique. Reconstructed coronal and sagittal MPR images reviewed. All images stored on PACS. Automated exposure control was used as a dose optimization technique forthis examination. COMPARISON: 01/19/2017 FINDINGS: The sensitivity for detection of visceral lesions is diminished without the use of intravenous contrast. LOWER CHEST: No significant pulmonary abnormalities. No effusion. LIVER: The liver is normal in size. Chronic undulating surface superiormay represent chronic underlying liver disease. GALLBLADDER: Gallbladder is partially distended. No CT evidence ofacute cholecystitis. BILE DUCTS: No intrahepatic or extrahepatic ductal dilatation. SPLEEN: Spleen is normal in size. PANCREAS: Moderate atrophy of the pancreas. No significantperipancreatic stranding or main ductal dilatation. ADRENALS: Normal. KIDNEYS/URINARY TRACT: The kidneys are normal in size. Nohydronephrosis. No stone. No significant perinephric stranding. Urinary bladder is distended. No substantial thickening or stranding. GI: Sigmoid diverticulosis without CT evidence of diverticulitis. Stool throughout the colon which appears nondilated. The appendix isnondilated. The small bowel is nondilated without evidence of bowel obstruction. The stomach is distended with ingested material. PERITONEUM: Laxity of the anterior abdominal wall with rectus diastasis.No free air or ascites is seen. No mesenteric lymphadenopathy RETROPERITONEUM: No retroperitoneal or inguinal lymphadenopathy. REPRODUCTIVE: No significant abnormality. VASCULATURE: Aorta is normal caliber. MUSCULOSKELETAL: Chronic cutaneous/subcutaneous nodule within the lower midabdomen slightly increased in size compared to 2017, likely benign.This measures 13 x 10 mm, previously 11 x 9 mm (151). No acute fracture seen. Stable irregularity and sclerosis of the inferior endplate of L4 comparedto a lumbar spine CT dated 08/08/2021. OTHER: No other abnormality. IMPRESSION: 1. No gross CT finding to explain the patient's symptoms. REFERENCE: Unless otherwise specified, no follow-up imaging is recommendedfor incidental renal and adrenal lesions per consensus recommendations basedon imaging criteria. Further lab evaluation could be pursued based onclinical findings. Management of the Incidental Renal Mass on CT: A White Paper of the ACR Incidental Findings Committee. J Am Yonny Radiol. 2018 Jul;15(2):264-273. Management of Incidental Adrenal Masses: A White Paper of the ACRIncidental Findings Committee. J Am Yonny Radiol. 2017 Jan;14(8):2947-3197. THIS IS AN ELECTRONICALLY VERIFIED FINAL REPORT 06/19/2022 9:29 PM - Electronically signed by Shane Miller M.D. AG: TON Report ID: [id number] Reading Location: [id number] Cara Douglas MD IMG CT PROCEDURES Final Result * POCT glucose (06/19/2022 7:20 PM HEEL WASHER STRINGING MACHINE OPERATOR) Glucose, POC 152 70 - 199 mg/dL NILSA Comment:Testing performed by : [address] [address] Blood 06/19/2022 7:20 PM HEEL WASHER STRINGING MACHINE OPERATOR 06/19/2022 7:20 PM HEEL WASHER STRINGING MACHINE OPERATOR Nikhil Weiss DO LAB POCT ORDERABLES - DEVICE Final Result Performing Organization Address [facility] Co de Phone Number NILSA [address] [place] [place] [address] * (ABNORMAL) Troponin T high-sensitivity 6-hour (06/19/2022 5:50 PM HEEL WASHER STRINGING MACHINE OPERATOR) Trop T hs 29(H) <=14 ng/L NILSA Comment: Interpretive Data For further hscTnT resources including the diagnostic algorithm and an aid in interpretation, copy and paste this link: https://nrl.testcatalog.org/show/hsTrop Current Interpretive Data last revised 2020. Testing performed by: [address] [address] Trop T hs delta -3 ng/L NILSA Comment:Testing performed by : [address] [address] Trop T hs interp Insignificant NILSA Comment:Testing performed by : [address] [address] Blood 06/19/2022 5:50 PM HEEL WASHER STRINGING MACHINE OPERATOR 06/19/2022 6:01 PM HEEL WASHER STRINGING MACHINE OPERATOR us Darryl Jones II, MD LAB BLOOD ORDERABLES Blessing l Result Performing Organization Address City/[facility] Co de Phone Number [facility] [address] [facility] [employer] [place], [place] [phone] * Urine culture Urine (06/19/2022 4:54 PM HEEL WASHER STRINGING MACHINE OPERATOR) Report Final Report: Less than 100,000 colonies/mL (clinically insignificant growth based on current clinical standards) NILSA Comment:Testing performed by : [facility], [address] [facility], [place]., [address] Organism (CLINICALLY INSIGNIFICANT GROWTH NILSA Urine 06/19/2022 4:54 PM HEEL WASHER STRINGING MACHINE OPERATOR 06/19/2022 9:37 PM HEEL WASHER STRINGING MACHINE OPERATOR Narrative NILSA RODRIGES - 06/21/2022 7:52 AM HEEL WASHER STRINGING MACHINE OPERATOR Urine culture reflexed based upon urinalysis results. Testing performed by [facility] ([phone]) us Darryl Jones II, MD LAB MICROBIOLOGY - GENERA L ORDERABLES Final Result NILSA [address] [facility] [place] [address] * (ABNORMAL) Urinalysis, microscopic only (06/19/2022 4:54 PM HEEL WASHER STRINGING MACHINE OPERATOR) WBC, ur >50(A) 0 - 5 /HPF NILSA Comment:Testing performed by : [address] [address] RBC, ur 11-20(A) 0 - 2 /HPF NILSA Comment:Testing performed by : [address] [address] Bacteria, ur Trace(A) NILSA Comment:Testing performed by : [address] [address] Yeast, ur 1+(A) NILSA Comment:Testing performed by : [address] [address] Mucous, ur Present(A) NILSA Comment:Testing performed by : [address] [address] Culture Reflex Comment Reflex to urine culture will be performed. NILSA Comment:Testing performed by : [address] [address] Urine 06/19/2022 4:54 PM HEEL WASHER STRINGING MACHINE OPERATOR 06/19/2022 4:56 PM HEEL WASHER STRINGING MACHINE OPERATOR us Darryl Jones II, MD LAB URINE ORDERABLES Blessing deanne Result [facility] [address] [facility] Department [place] [address] * (ABNORMAL) Urinalysis reflex to microscopic and culture Urine (06/19/2022 4:54 PM HEEL WASHER STRINGING MACHINE OPERATOR) Color, ur Straw Yellow NILSA Comment:Testing performed by : [address] [address] Clarity, ur Cloudy(A) Clear NILSA Comment:Testing performed by : [address] [address] Specific gravity, ur 1.010 1.003 - 1.030 NILSA Comment:Testing performed by : [address] [address] pH, urine 5.0 NILSA Comment:Testing performed by : [address] [address] Protein, ur ql 2+(A) Negative NILSA Comment:Testing performed by : [address] [address] Glucose, ur ql 1+(A) Negative NILSA Comment:Testing performed by : [address] [address] Ketones, ur Negative Negative NILSA Comment:Testing performed by : [address] [address] Bilirubin, ur Negative Negative NILSA Comment:Testing performed by : [address] [address] Blood, ur 1+(A) Negative NILSA Comment:Testing performed by : [address] [address] Urobilinogen, ur <2.0 <2.0 mg/dL NILSA Comment:Testing performed by : [address] [address] Nitrite, ur Negative Negative NILSA Comment:Testing performed by : [address] [address] Leukocyte esterase, ur 4+(A) Negative NILSA Comment:Testing performed by : [address] [address] UA reflex comment Reflex to microscopic UA will be performed. NILSA Comment:Testing performed by : [address] [address] Urine 06/19/2022 4:54 PM HEEL WASHER STRINGING MACHINE OPERATOR 06/19/2022 4:56 PM HEEL WASHER STRINGING MACHINE OPERATOR Narrative NILSA - 06/19/2022 5:04 PM HEEL WASHER STRINGING MACHINE OPERATOR ?? Urine pH is affected by diet, medications, systemic acid-base disturbances, and renal tubular function. ??pH may affect urinary stone formation. ??For example, urine pH below 6.0 may help reduce the tendency for calcium phosphate stones and pH greater than 6.0 may reduce the tendency for uric acid stone formation. Source: [facility] REMOT[facility]. Last revised 07-02-2017 Darryl Jones II, MD LAB MICROBIOLOGY - GENERA L ORDERABLES Final Result Performing Organization Address City/[facility]/ZIP Co de Phone Number [address] [email or web address] [place], [place] [phone] * POCT glucose (06/19/2022 4:04 PM HEEL WASHER STRINGING MACHINE OPERATOR) [facility] Glucose, POC 162 70 - 199 mg/dL NILSA Comment:Testing performed by : [address] [address] Blood 06/19/2022 4:04 PM HEEL WASHER STRINGING MACHINE OPERATOR 06/19/2022 4:04 PM HEEL WASHER STRINGING MACHINE OPERATOR us Notinfile Unknown LAB POCT ORDERABLES - DEVICE F inal Result Performing Organization Address City/[facility]/ZIP Co de Phone Number [place] [id number] [facility] [email or web address] [address] * (ABNORMAL) Troponin T high-sensitivity 4-hour (06/19/2022 3:43 PM HEEL WASHER STRINGING MACHINE OPERATOR) [facility] Trop T hs 29(H) <=14 ng/L NILSA Comment: Ref Range High Interpretive Data For further hscTnT resources including the diagnostic algorithm and an aid in interpretation, copy and paste this link: https://nrl.testcatM Lite [email or web address]/show/hsTrop Current Interpretive Data last revised 2020. Testing performed by: [address] [address] Trop T hs delta -3 ng/L NILSA RODRIGES Comment:Testing performed by : [address] [address] Trop T hs interp Insignificant NILSA Comment:Testing performed by : [address] [address] Blood 06/19/2022 3:43 PM HEEL WASHER STRINGING MACHINE OPERATOR 06/19/2022 3:47 PM HEEL WASHER STRINGING MACHINE OPERATOR us Darryl Jones II, MD LAB BLOOD ORDERABLES Blessing l Result NILSA [facility] Department [place] [address] * (ABNORMAL) Troponin T high-sensitivity 2-hour (06/19/2022 1:59 PM HEEL WASHER STRINGING MACHINE OPERATOR) Trop T hs 28(H) <=14 ng/L NILSA RODRIGES Comment: Ref Range High Interpretive Data For further hscTnT resources including the diagnostic algorithm and an aid in interpretation, copy and paste this link: https://nrl.testMarucci Sports.org/show/hsTrop Current Interpretive Data last revised 2020. Testing performed by: [address] [address] Trop T hs delta -4 ng/L NILSA RODRIGES Comment:Testing performed by : [address] [address] Trop T hs interp Insignificant NILSA Comment:Testing performed by : [address] [address] Blood 06/19/2022 1:59 PM HEEL WASHER STRINGING MACHINE OPERATOR 06/19/2022 2:46 PM HEEL WASHER STRINGING MACHINE OPERATOR us Darryl Jones II, MD LAB BLOOD ORDERABLES Blessing l Result Performing Organization Address [facility] de Phone Number [facility] [address] [place] [address] * (ABNORMAL) Hemoglobin A1c (06/19/2022 11:32 AM HEEL WASHER STRINGING MACHINE OPERATOR) [facility] Hgb A1C 8.3(H) 4.0 - 5.6 % NILSA Comment:Testing performed by : [address] [address] Estimated Average Glucose 192 mg/dL [facility] Comment: The ADA recommends reporting an estimated Average Glucose (eAG) with all Hemoglobin A1c results using the equation derived from a study of 507 normal and diabetic adults. ??Minority populations were underrepresented and children were not included. ?? (Diabetes Care 31:8239-8971, 2008). ??The eAG is not equivalent to a fasting glucose. Testing performed by: [address] [address] Blood 06/19/2022 11:3 2 AM HEEL WASHER STRINGING MACHINE OPERATOR 06/19/2022 11:54 AM HEEL WASHER STRINGING MACHINE OPERATOR us Nikhil Weiss DO LAB BLOOD ORDERABLES Final Re sult Performing Organization Address [facility] Co de Phone Number [facility] [address] [facility] [place] [address] * eGFR (06/19/2022 11:32 AM HEEL WASHER STRINGING MACHINE OPERATOR) [facility] eGFR 22 mL/min/1. 73 m2 NILSA Comment: Interpretive Data [...] was last reviewed 2021. Testing performed by: [address] [address] Blood 06/19/2022 11:3 2 AM HEEL WASHER STRINGING MACHINE OPERATOR 06/19/2022 11:54 AM HEEL WASHER STRINGING MACHINE OPERATOR Darryl Jones II, MD LAB BLOOD ORDERABLES Blessing alicea Result NILSA [address] [facility] Department of Laboratories [place], [place] [id number] * (ABNORMAL) Differential, auto (06/19/2022 11:32 AM HEEL WASHER STRINGING MACHINE OPERATOR) Neutrophil abs 7.8(H) 1.7 - 6.5 K/cumm NILSA Comment:Testing performed by : [address] [address] Imm gran abs 0.0 0.0 - 0.1 K/cumm NILSA Comment:Testing performed by : [address] [address] Lymphocyte abs 2.3 0.8 - 3.3 K/cumm NILSA Comment:Testing performed by : [address] [address] Monocyte abs 0.7 0.2 - 0.8 K/cumm NILSA Comment:Testing performed by : [address] [address] Eosinophil abs 0.1 0.0 - 0.5 K/cumm NILSA Comment:Testing performed by : [address] [address] Basophil abs 0.1 0.0 - 0.1 K/cumm NILSA Comment:Testing performed by : [address] [address] Neutrophil pct 71.4 % [facility] Comment: Interpretive Data Percent cell count reference ranges are not reported, since discordance with absolute values may lead to misinterpretation of CBC data. Current Interpretive Data was last revised on 2017. Testing performed by: [address] [address] Imm gran pct 0.3 % [facility] Comment: Interpretive Data Percent cell count reference ranges are not reported, since discordance with absolute values may lead to misinterpretation of CBC data. Current Interpretive Data was last revised on 2017. Testing performed by: [address] [address] Lymphocyte pct 20.7 % [facility] Comment: Interpretive Data Percent cell count reference ranges are not reported, since discordance with absolute values may lead to misinterpretation of CBC data. Current Interpretive Data was last revised on 2017. Testing performed by: [address] [address] Monocyte pct 6.0 % [facility] Comment: Interpretive Data Percent cell count reference ranges are not reported, since discordance with absolute values may lead to misinterpretation of CBC data. Current Interpretive Data was last revised on 2017. Testing performed by: [address] [address] Eosinophil pct 1.1 % [facility] Comment: Interpretive Data Percent cell count reference ranges are not reported, since discordance with absolute values may lead to misinterpretation of CBC data. Current Interpretive Data was last revised on 2017. Testing performed by: [address] [address] Basophil pct 0.5 % [facility] Comment: Interpretive Data Percent cell count reference ranges are not reported, since discordance with absolute values may lead to misinterpretation of CBC data. Current Interpretive Data was last revised on 2017. Testing performed by: [address] [address] Blood 06/19/2022 11:3 2 AM HEEL WASHER STRINGING MACHINE OPERATOR 06/19/2022 11:54 AM HEEL WASHER STRINGING MACHINE OPERATOR Darryl Jones II, MD LAB BLOOD ORDERABLES Blessing l Result [facility] [address] [facility] Department [place] [address] * Influenza A/B, RSV, and COVID-19 PCR Nasopharyngeal (06/19/2022 11:32 AM HEEL WASHER STRINGING MACHINE OPERATOR) Pathologist [facility] COVID-19 RNA Negative Negative [facility] Comment:Testing performed by : [address] [address] Influenza A RNA Negative Negative [facility] Comment:Testing performed by : [address] [address] Influenza B RNA Negative Negative [facility] Comment:Testing performed by : [address] [address] RSV RNA Negative Negative [facility] Comment: Interpretive data: This test is performed using the [employer] Xpert Xpress CoV-2/Flu/RSV plus assay. This is [...] out infection. Interpretive Data last revised 2021. Testing performed by: [address] [address] Nasopharyngeal 06/19/2022 11 :32 AM HEEL WASHER STRINGING MACHINE OPERATOR 06/19/2022 11:54 AM HEEL WASHER STRINGING MACHINE OPERATOR Narrative NILSA - 06/19/2022 12:36 PM HEEL WASHER STRINGING MACHINE OPERATOR Is the Patient experiencing symptoms consistent with COVID?->Yes Date of Symptom Onset->06/16/22 Reason for testing?->Symptomatic Darryl Jones II, MD LAB MICROBIOLOGY - GENERA L ORDERABLES Final Result NILSA RODRIGES [address] [facility] [place] [address] * (ABNORMAL) Troponin T high-sensitivity series (baseline, 2hr, 4hr, 6hr) (06/19/2022 11:32 AM HEEL WASHER STRINGING MACHINE OPERATOR) Trop T hs 32(H) <=14 ng/L NILSA RODRIGES Comment: Interpretive Data For further hscTnT resources including the diagnostic algorithm and an aid in interpretation, copy and paste this link: https://nrl.testcatalog.org/show/hsTrop Current Interpretive Data last revised 2020. Testing performed by: [address] [address] Blood 06/19/2022 11:3 2 AM HEEL WASHER STRINGING MACHINE OPERATOR 06/19/2022 11:54 AM HEEL WASHER STRINGING MACHINE OPERATOR Darryl Jones II, MD LAB BLOOD ORDERABLES Blessing l Result NILSA RODRIGES [facility] [place] [address] * (ABNORMAL) Comprehensive metabolic panel (06/19/2022 11:32 AM HEEL WASHER STRINGING MACHINE OPERATOR) Pathologist [facility] Sodium 140 135 - 145 mmol/L NILSA RODRIGES Comment:Testing performed by : [address] [address] Potassium, pl 4.4 3.3 - 4.9 mmol/L NILSA RODRIGES Comment:Testing performed by : [address] [address] Chloride 104 97 - 110 mmol/L NILSA RODRIGES Comment:Testing performed by : [address] [address] CO2 26 22 - 32 mmol/L NILSA RODRIGES Comment:Testing performed by : [address] [address] Anion gap 10 2 - 15 mmol/L [facility] Comment:Testing performed by : [address] [address] BUN 56(H) 8 - 25 mg/dL [facility] Comment:Testing performed by : [address] [address] Creatinine 2.30(H) 0.60 - 1.10 mg/dL NILSA Comment:Testing performed by : [address] [address] Glucose 209(H) 70 - 199 mg/dL [facility] Comment: Interpretive Data Fasting glucose >/= 126 [...] classification and Diagnosis of Diabetes Diabetes Care 2017;40 (Suppl. 1):S11. Current interpretive data was last revised 2017. Testing performed by: [address] [address] Calcium 9.3 8.5 - 10.3 mg/dL [facility] Comment:Testing performed by : [address] [address] Bilirubin, total 0.2 0.1 - 1.2 mg/dL [facility] Comment:Testing performed by : [address] [address] Protein, pl 7.6 6.5 - 8.5 g/dL [facility] Comment:Testing performed by : [address] [address] Albumin 3.8 3.5 - 5.0 g/dL NILSA Comment:Testing performed by : [address] [address] Alk phos 158(H) 40 - 130 Units/L NILSA Comment:Testing performed by : [address] [address] ALT 67(H) 7 - 45 Units/L NILSA RODRIGES Comment:Testing performed by : [address] [address] AST 41 10 - 45 Units/L NILSA RODRIGES Comment: SLIGHTLY HEMOLYZED: Hemolysis interferes with the above test. Testing performed by: [address] [address] Blood 06/19/2022 11:3 2 AM HEEL WASHER STRINGING MACHINE OPERATOR 06/19/2022 11:54 AM HEEL WASHER STRINGING MACHINE OPERATOR us Darryl Jones II, MD LAB BLOOD ORDERABLES Blessing alicea Result NILSA [facility] Department [place] [address] * (ABNORMAL) CBC with auto differential (06/19/2022 11:32 AM HEEL WASHER STRINGING MACHINE OPERATOR) WBC 11.0(H) 3.8 - 9.9 K/cumm NILSA RODRIGES Comment:Testing performed by : [address] [address] Hgb 9.9(L) 11.9 - 15.5 g/dL NILSA RODRIGES Comment:Testing performed by : [address] [address] Hct 31.9(L) 35.6 - 45.5 % NILSA RODRIGES Comment:Testing performed by : [address] [address] Plt 314 150 - 400 K/cumm NILSA RODRIGES Comment:Testing performed by : [address] [address] MPV 10.9 9.1 - 12.3 fL NILSA RODRIGES Comment:Testing performed by : [address] [address] RBC 3.35(L) 3.90 - 5.20 M/cumm NILSA RODRIGES Comment:Testing performed by : [address] [address] MCV 95.2 81.3 - 96.4 fL NILSA RODRIGES Comment:Testing performed by : [address], [address] MCH 29.6 27.1 - 33.3 pg NILSA Comment:Testing performed by : [address] [address] MCHC 31.0(L) 32.3 - 35.7 g/dL NILSA Comment:Testing performed by : [address], [address] RDW CV 14.9 11.1 - 14.9 % NILSA Comment:Testing performed by : [address], [address] RDW SD 52.0(H) 35.7 - 48.1 fL NILSA Comment:Testing performed by : [address], [address] NRBC abs 0.00 0.00 - 0.01 K/cumm NILSA Comment:Testing performed by : [address], [address] Blood 06/19/2022 11:3 2 AM HEEL WASHER STRINGING MACHINE OPERATOR 06/19/2022 11:54 AM HEEL WASHER STRINGING MACHINE OPERATOR Darryl Jones II, MD LAB BLOOD ORDERABLES Blessing l Result [facility] [address] [facility] Department of Laboratories [place], [place] [id number] * ECG 12 lead (06/19/2022 11:28 AM HEEL WASHER STRINGING MACHINE OPERATOR) Ventricular Rate EKG/Min 68 BPM [facility] Atrial Rate 68 BPM [facility] DC-Interval (MSEC) 164 ms [facility] QRS-Interval (MSEC) 70 ms [facility] QT-Interval (MSEC) 428 ms [facility] QTc 455 ms [facility] P Arlee 62 degrees [facility] R Arlee 5 degrees [facility] T Arlee 29 degrees [facility] Diagnosis Normal sinus rhythm Normal ECG No previous ECGs available [facility] 06/19/2022 11:2 8 AM HEEL WASHER STRINGING MACHINE OPERATOR 06/19/2022 8:16 PM HEEL WASHER STRINGING MACHINE OPERATOR us Darryl Jones II, MD ECG ORDERABLES Final Res ult [facility] documented in this encounter Visit Diagnoses Diagnosis Acute cystitis without hematuria- Primary Type 2 diabetes mellitus with other specified complication, with long-term current use of insulin ([facility]) Parkinson's disease ([facility]) Paralysis agitans Generalized weakness Physical deconditioning Muscular wasting and disuse atrophy, not elsewhere classified 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 2 diabetes mellitus ([facility]) ([facility]) Anemia, unspecified type Gastritis without bleeding, unspecified chronicity, unspecified gastritis type documented in this encounter Admitting Diagnoses Diagnosis Acute cystitis without hematuria documented in this encounter Administered Medications Inactive Administered Medications - up to 3 most recent administrations Medication Order MAR Action Action Date Dose Rate Site apixaban (ELIQUIS) tablet 5 mg 5 mg, oral, Every 12 hours, First dose on Kellie 06/19/22 at 2100, Nurse to discontinue heparin infusion order and associated bolus at first administration of apixaban using 'order condition met' order source, Indications: atrial fibrillationIndications:atrial fibrillation Given 06/22/2022 9:34 AM HEEL WASHER STRINGING MACHINE OPERATOR 5 mg Given 06/21/2022 9:41 PM HEEL WASHER STRINGING MACHINE OPERATOR 5 mg Given 06/21/2022 9:00 AM HEEL WASHER STRINGING MACHINE OPERATOR 5 mg atorvastatin (LIPITOR) tablet 20 mg 20 mg, oral, Daily, First dose on Kellie 06/19/22 at 2100 Given 06/22/2022 9:34 AM HEEL WASHER STRINGING MACHINE OPERATOR 20 mg Given 06/21/2022 9:00 AM HEEL WASHER STRINGING MACHINE OPERATOR 20 mg Given 06/20/2022 9:44 AM HEEL WASHER STRINGING MACHINE OPERATOR 20 mg benztropine (COGENTIN) tablet 1 mg 1 mg, oral, Nightly, First dose on Kellie 06/19/22 at 2100 Given 06/21/2022 9:41 PM HEEL WASHER STRINGING MACHINE OPERATOR 1 mg Given 06/20/2022 9:36 PM HEEL WASHER STRINGING MACHINE OPERATOR 1 mg Given 06/19/2022 9:04 PM HEEL WASHER STRINGING MACHINE OPERATOR 1 mg carvediloL (COREG) tablet 3.125 mg 3.125 mg, oral, 2 times daily with meals (bkfst, dinner), First dose on Kellie 06/19/22 at 2100 Given 06/22/2022 9:34 AM HEEL WASHER STRINGING MACHINE OPERATOR 3.125 mg Given 06/21/2022 5:48 PM HEEL WASHER STRINGING MACHINE OPERATOR 3.125 mg Given 06/21/2022 9:00 AM HEEL WASHER STRINGING MACHINE OPERATOR 3.125 mg cefTRIAXone (ROCEPHIN) 1,000 mg/10 mL in sterile water (premix) 1,000 mg 1,000 mg, intravenous, at 600 mL/hr, Administer over 1 Minutes, Once, On Kellie 06/19/22 at 1715, For 1 dose, Indications: Urinary Tract/Genitourinary InfectionIndications:Urinary Tract/Genitourinary Infection Given 06/19/2022 5:50 PM HEEL WASHER STRINGING MACHINE OPERATOR 1,000 mg 6 00 mL/hr cefTRIAXone (ROCEPHIN) 2,000 mg/20 mL in sterile water (premix) 2,000 mg 2,000 mg, intravenous, at 1,200 mL/hr, Administer over 1 Minutes, Every 24 hours scheduled, First dose on Thu06/20/22 at 0900, Indications: Urinary Tract/Genitourinary InfectionIndications:Urinary Tract/Genitourinary Infection Given 06/21/2022 9:00 AM HEEL WASHER STRINGING MACHINE OPERATOR 2,000 mg 1 200 mL/hr Given 06/20/2022 8:49 AM HEEL WASHER STRINGING MACHINE OPERATOR 2,000 mg 1200 mL/hr dextrose (D10W) 10% bolus 250 mL 250 mL, intravenous, at 1,000 mL/hr, Administer over 15 Minutes, Every 15 min PRN, blood glucose less than 70 mg/dL and UNABLE to swallow/take PO glucose/juice., Starting on Kellie 06/19/22 at 1840, After treatment for hypoglycemia, recheck BG followed by treatment every 15 minutes until the BG is greater than 100 mg/dL. Then check BG 1 hour post treatment. If BG is less than 100 mg/dL, repeat Q15 minute BG checks and treatment. Call MD for each episode of hypoglycemia., Indications: hypoglycemic disorderIndications:hypoglycemic disorder dextrose gel in packet 15 g 15 g, oral, Every 15 min PRN, low blood sugar, blood glucose less than 70 mg/dL, Starting on Kellie 06/19/22 at 1840, If patient is alert and able to [...] 10 mg, oral, Nightly, First dose on Kellie 06/19/22 at 2100 Given 06/21/2022 9:41 PM HEEL WASHER STRINGING MACHINE OPERATOR 10 mg Given 06/20/2022 9:36 PM HEEL WASHER STRINGING MACHINE OPERATOR 10 mg Given 06/19/2022 9:04 PM HEEL WASHER STRINGING MACHINE OPERATOR 10 mg glucagon injection 1 mg 1 mg, intramuscular, Every 30 min PRN, low blood sugar, blood glucose less than 70 mg/dL AND no IV access AND unable to take PO glucose/juice., Starting on Kellie 06/19/22 at 1840, After Glucagon is administered, position patient on [...] insulin glargine (LANTUS, SEMGLEE) 100 unit/mL injection 35 Units 35 Units, subcutaneous, Nightly, First dose on Kellie 06/19/22 at 2100, Do not mix with other insulins Given 06/21/2022 9:41 PM HEEL WASHER STRINGING MACHINE OPERATOR 35 Units Left Lower Abdomen Given 06/20/2022 9:37 PM HEEL WASHER STRINGING MACHINE OPERATOR 35 Units Le ft Upper Abdomen Given 06/19/2022 9:04 PM HEEL WASHER STRINGING MACHINE OPERATOR 35 Units Ri ght Lower Abdomen insulin lispro (HumaLOG, ADMELOG) 100 unit/mL injection 0-4 Units 0-4 Units, subcutaneous, Nightly, First dose on Kellie 06/19/22 at 2100, Blood glucose mg/dL: 199 or [...] daily with meals, First dose on Kellie 06/19/22 at 1842, Blood glucose mg/dL: 149 or less: No [...] NPO Status, Indications: Diabetes MellitusIndications:Diabetes Mellitus Given 06/22/2022 1:44 PM HEEL WASHER STRINGING MACHINE OPERATOR 2 Units Left Lower Abdomen Given 06/22/2022 9:34 AM HEEL WASHER STRINGING MACHINE OPERATOR 1 Units Le ft Lower Abdomen Given 06/21/2022 5:48 PM HEEL WASHER STRINGING MACHINE OPERATOR 1 Units Le ft Upper Arm insulin lispro (HumaLOG, ADMELOG) 100 unit/mL injection 12 Units 12 Units, subcutaneous, 3 times daily with meals, First dose on Kellie 06/19/22 at 1841 Given 06/22/2022 1:44 PM HEEL WASHER STRINGING MACHINE OPERATOR 12 Units Left Lower Abdomen Given 06/22/2022 9:34 AM HEEL WASHER STRINGING MACHINE OPERATOR 12 Units Le ft Lower Abdomen Given 06/21/2022 5:48 PM HEEL WASHER STRINGING MACHINE OPERATOR 12 Units Le ft Upper Arm pregabalin (LYRICA) capsule 150 mg 150 mg, oral, Nightly, First dose on Kellie 06/19/22 at 2100 Given 06/21/2022 9:41 PM HEEL WASHER STRINGING MACHINE OPERATOR 150 mg Given 06/20/2022 9:37 PM HEEL WASHER STRINGING MACHINE OPERATOR 150 mg Given 06/19/2022 9:04 PM HEEL WASHER STRINGING MACHINE OPERATOR 150 mg risperiDONE (RisperDAL) tablet 2 mg 2 mg, oral, Nightly, First dose on Kellie 06/19/22 at 2100 Given 06/21/2022 9:41 PM HEEL WASHER STRINGING MACHINE OPERATOR 2 mg Given 06/20/2022 9:36 PM HEEL WASHER STRINGING MACHINE OPERATOR 2 mg Given 06/19/2022 9:04 PM HEEL WASHER STRINGING MACHINE OPERATOR 2 mg sodium chloride 0.9% infusion 125 mL/hr, intravenous, Continuous, Starting on Kellie 06/19/22 at 1827 Rate/Dose Verify 06/19/2022 9:00 PM HEEL WASHER STRINGING MACHINE OPERATOR 125 mL/hr 125 mL/hr New Bag 06/19/2022 6:47 PM HEEL WASHER STRINGING MACHINE OPERATOR 125 mL/hr 125 mL/hr sodium chloride 0.9% infusion 50 mL/hr, intravenous, Continuous, Starting on Thu06/20/22 at 1030 New Bag 06/20/2022 10:38 AM HEEL WASHER STRINGING MACHINE OPERATOR 50 mL/hr 50 mL/hr documented in this encounter Active and Recently Administered Medications Times are shown in HEEL WASHER STRINGING MACHINE OPERATOR. Scheduled Medication Order 06/20/2022 06/21/2022 06/22/2022 apixaban (ELIQUIS) tablet 5 mg 5 mg, oral, Every 12 hours, First dose on Kellie 06/19/22 at 2100, Nurse to discontinue heparin infusion order and associated bolus at first administration of apixaban using 'order condition met' order source, Indications: atrial fibrillation 0946 (Given - Provider: Dedra Sharma RN)2136 (Given - Provider: Katalina Chatterjee, ALIREZA) 0900 (Given - Provider: Mihaela Murray RN)214 (Given - Provider: Ellen Haro RN) 0934 (Given - Provider: Becky Sims, ALIREZA) atorvastatin (LIPITOR) tablet 20 mg 20 mg, oral, Daily, First dose on Kellie 06/19/22 at 2100 0944 (Given - Provider: Dedra Sharma RN) 0900 (Given - Provider: Mihaela Murray RN) 0934 (Given - Provider: Becky Sims, ALIREZA) benztropine (COGENTIN) tablet 1 mg 1 mg, oral, Nightly, First dose on Kellie 06/19/22 at 2100 2135 (Given - Provider: Katalina Chatterjee RN) 2140 (Given - Provider: Ellen Haro, ALIREZA) carvediloL (COREG) tablet 3.125 mg 3.125 mg, oral, 2 times daily with meals (bkfst, dinner), First dose on Kellie 06/19/22 at 2100 0945 (Given - Provider: Dedra Sharma RN)1814 (Given - Provider: Lulú Elizabeth RN) 0900 (Given - Provider: Mihaela Murray RN)1748 (Given - Provider: Mihaela Murray RN) 0934 (Given - Provider: Becky Sims RN) cefTRIAXone (ROCEPHIN) 2,000 mg/20 mL in sterile water (premix) 2,000 mg (CANCELED) 2,000 mg, intravenous, at 1,200 mL/hr, Administer over 1 Minutes, Every 24 hours scheduled, First dose on Thu06/20/22 at 0900, Indications: Urinary Tract/Genitourinary Infection 0849 (Given - Provider: Dedra Sharma, RN) 0900 (Given - Provider: Mihaela Murray, ALIREZA) famotidine (PEPCID) tablet 10 mg 10 mg, oral, Nightly, First dose on Kellie 06/19/22 at 2100 2135 (Given - Provider: Katalina Chatterjee RN) 2140 (Given - Provider: Ellen Haro, ALIREZA) insulin glargine (LANTUS, SEMGLEE) 100 unit/mL injection 35 Units 35 Units, subcutaneous, Nightly, First dose on Kellie 06/19/22 at 2100, Do not mix with other insulins 2136 (Given - Provider: Katalina Chatterjee RN) 2140 (Given - Provider: Ellen Haro, ALIREZA) insulin lispro (HumaLOG, ADMELOG) 100 unit/mL injection 0-4 Units 0-4 Units, subcutaneous, Nightly, First dose on Kellie 06/19/22 at 2100, Blood glucose mg/dL: 199 or less: No insulin 200-249: add 1 unit 250-299: add 2 units 300-349: add 3 units and notify physician for adjustment of insulin orders. 350-399: add 4 units and notify physician for adjustment of insulin orders. Over 400: Notify physician for adjustment of insulin orders. Do NOT hold for NPO Status, Indications: Diabetes Mellitus 2123 (Not Given - Provider: Katalina Chatterjee RN - Reason: Order parameters not met) 2146 (Not Given - Provider: Ellen Haro, ALIREZA - Reason: Order parameters not met) insulin lispro (HumaLOG, ADMELOG) 100 unit/mL injection 0-5 Units 0-5 Units, subcutaneous, 3 times daily with meals, First dose on Kellie 06/19/22 at 1842, Blood glucose mg/dL: 149 or less: No insulin 150-199: add 1 unit 200-249: add 2 units 250-299: add 3 units 300-349: add 4 units and notify physician for adjustment of insulin orders. 350-399: add 5 units and notify physician for adjustment of insulin orders. Over 400: Notify physician for adjustment of insulin orders. Do NOT hold for NPO Status, Indications: Diabetes Mellitus 0956 (Not Given - Provider: Dedra Sharma RN - Reason: Medication not available)1259 (Given - Provider: Lulú Elizabeth RN)1829 (Not Given - Provider: Lulú Elizabeth RN - Reason: Order parameters not met) 0901 (Not Given - Provider: Mihaela Murray RN - Reason: Order parameters not met)1457 (Given - Provider: Mihaela Murray RN)1748 (Given - Provider: Mihaela Murray RN) 0934 (Given - Provider: Becky Sims RN)1344 (Given - Provider: Becky Sims RN) insulin lispro (HumaLOG, ADMELOG) 100 unit/mL injection 12 Units 12 Units, subcutaneous, 3 times daily with meals, First dose on Kellie 06/19/22 at 1841 0956 (Not Given - Provider: Dedra Sharma RN - Reason: Medication not available)1259 (Given - Provider: Lulú Elizabeth RN)1832 (Given - Provider: Lulú Elizabeth RN) 0900 (Given - Provider: Mihaela Murray RN)1458 (Given - Provider: Mihaela Murray RN)1748 (Given - Provider: Mihaela Murray RN) 0934 (Given - Provider: Becky Sims RN)1344 (Given - Provider: Becky Sims, RN) pregabalin (LYRICA) capsule 150 mg 150 mg, oral, Nightly, First dose on Kellie 06/19/22 at 2100 2136 (Given - Provider: Katalina Chatterjee, ALIREZA) 2140 (Given - Provider: Ellen Haro, ALIREZA) risperiDONE (RisperDAL) tablet 2 mg 2 mg, oral, Nightly, First dose on Kellie 06/19/22 at 2100 213 (Given - Provider: Katalina Chatterjee, ALIREZA) 2140 (Given - Provider: Ellen Haro, ALIREZA) Continuous Medication Order 06/20/2022 06/21/2022 06/22/2022 sodium chloride 0.9% infusion (CANCELED) 50 mL/hr, intravenous, Continuous, Starting on Thu06/20/22 at 1030 1038 (New Bag - Provider: Dedra Sharma, RN) 1501 (Due: Stopped - Provider: Cara Douglas MD) PRN Medication Order 06/20/2022 06/21/2022 06/22/2022 dextrose (D10W) 10% bolus 250 mL(Linked Group 1) 250 mL, intravenous, at 1,000 mL/hr, Administer over 15 Minutes, Every 15 min PRN, blood glucose less than 70 mg/dL and UNABLE to swallow/take PO glucose/juice., Starting on Thu06/19/22 at 1840, After treatment for hypoglycemia, recheck BG followed by treatment every 15 minutes until the BG is greater than 100 mg/dL. Then check BG 1 hour post treatment. If BG is less than 100 mg/dL, repeat Q15 minute BG checks and treatment. Call MD for each episode of hypoglycemia., Indications: hypoglycemic disorder dextrose gel in packet 15 g(Linked Group 1) 15 g, oral, Every 15 min PRN, low blood sugar, blood glucose less than 70 mg/dL, Starting on Thu06/19/22 at 1840, If patient is alert and able to [...] unable to take PO glucose/juice., Starting on Thu06/19/22 at 1840, After Glucagon is administered, position patient on [...] 1 mL SWFI. Use immediately following reconstitution. Linked Groups Order Group 1: dextrose gel in packet 15 gJump to med 15 g, oral, Every 15 min PRN, low blood sugar, blood glucose less than 70 mg/dL, Starting on Kellie 06/19/22 at 1840, If patient is alert and able to [...] to swallow/take PO glucose/juice., Starting on Kellie 06/19/22 at 1840, After treatment for hypoglycemia, recheck BG followed [...] Date dextrose (D10W) 10% bolus 250 mL 1 06/19/20 dextrose gel in packet 15 g 1 06/19/2022 glucagon injection 1 mg 1 06/19/2022 insulin lispro (HumaLOG, ADM ELOG) 100 unit/mL injection 0-4 Units 1 06/19/2022 Lab Orders Without Results Count Last Ordered D ate First Ordered Date POCT GLUCOSE DEVICE 6 06/22/2022 06/19/20 Nursing Count Last Ordered Date First Orde red Date NOTIFY PROVIDER (SPECIFY) 4 06/19/2022 Admission Count Last Ordered Date First Orde red Date ADMIT TO INPATIENT 1 06/19/2022 Transfer Count Last Ordered Date First Orde red Date ED TO FLOOR BED REQUEST 1 06/19/2022 Discharge Count Last Ordered Date First Orde red Date DISCHARGE PATIENT 1 06/22/2022 documented in this encounter Care Teams Inserter Relationship Specialty Start Date End Date Cherelle Corcoran MD PCP - General Family Medicine 08/30/19 Mark Queen MD Consulting Physician Infectious Diseases 01/10/20 Brandie Callejas Patient Hide Or Skin Buffer 06/20/22 06/22/22 documented as of this encounter
--- OUTSIDE RECORDS SUMMARY | 2024-07-04 04:12 | XMS_ITS | Encounter Summary ---
Author Organization [facility] Address [address] [place] [address] Care Team Providers Care Environmental Protection Forester Name Role Phone Cherelle Corcoran MD Primary Care Pro vider Mark Queen MD Unavailable [phone] Reason for Visit * Auth/Cert Specialty Diagnoses / Procedures Referred By Maryse lama Referred To Contact Diagnoses Acute cystitis without hematuria Procedures Referral ID Status Reason Start Date Expiration Date Visits Re quested Visits Authorized [id number] 1 1 Encounter Details Date Type Department Care Team (Latest Contact Info) Description 06/19/2022 1:07 PM WOOD FLOORING SPECIALIST - 06/19/2022 2:45 PM WOOD FLOORING SPECIALIST Hospital Encounter [facility] Building [address] [address] Weakness Discharge Disposition: Discharge to home or self [...] 09/10/2021 How often do you attend chur ch or worship services? Never 09/10/2021 Do you belong to [...] money to buy more. Never true 09/11/19 Within the past 12 months, t he [...] slept in a fci (including now)? No 09/10/2021 Comments No Sex and Gender Information Value Date Recorded Sex Assigned at Not on file Legal Sex Female 9:03 AM WOOD FLOORING SPECIALIST Gender Identity Female 02/08/2020 6:39 PM [...] current use of insulin ([facility]) Inject 0.5 mL (1.5 mg [...] flash glucose scanning reader ([employer] Madhav 2 [place]) miscIndications:Ty pe 2 diabetes mellitus with diabetic [...] current use of insulin ([facility]) Inject 34 Units under the skin nightly [...] hours then off for 12 hours. Rx# [id number] in home 05/02/22 per Hanny Cruz PTA [...] (Latest Contact Info) Description 07/13/2024 9:00 AM WOOD FLOORING SPECIALIST Hospital Encounter [facility] [address] [place] [address] Jaya Grier MD [address] [place] [address] 07/13/2024 9:00 AM WOOD FLOORING SPECIALIST - 07/13/2024 9:30 AM WOOD FLOORING SPECIALIST Surgery [facility] [address] [place] [address] Jaya Grier MD [address] [place] [address] ESOPHAGOGASTRODUODENOSCOPY Scheduled Procedures Name Priority Associated Diagnoses Date/Ti me ESOPHAGOGASTRODUODENOSCOPY Anemia, unspecified type Gastritis without bleeding, unspecified chronicity, unspecified gastritis type 07/13/2024 9:00 AM WOOD FLOORING SPECIALIST COLONOSCOPY Iron deficiency anemia due to chronic blood loss documented as of this encounter Procedures Procedure Name Priority Date/Time Associated Diagnosis Comments URINE CULTURE Routine 06/19/2022 10:30 AM WOOD FLOORING SPECIALIST Weakness documented in this encounter Results * Urine culture Urine, clean voided (06/19/2022 10:30 AM WOOD FLOORING SPECIALIST) Report Final Report: Less than 100,000 colonies/mL (clinically insignificant growth based on current clinical standards) NILSA RODRIGES Comment:Testing performed by : [facility], [address] [place] [address] Organism (CLINICALLY INSIGNIFICANT GROWTH NILSA RODRIGES Urine, clean voided 06/19/2022 10:30 AM WOOD FLOORING SPECIALIST 06/19/2022 6:56 PM WOOD FLOORING SPECIALIST Narrative NILSA RODRIGES - 06/21/2022 7:49 AM WOOD FLOORING SPECIALIST Testing performed by [facility] ([phone]) us Cherelle Corcoran MD LAB MICROBIOLOGY - GENERAL ORDERABLES Final Result NILSA RODRIGES [address] [facility] Department [place] [address] documented in this encounter Visit Diagnoses Diagnosis Weakness Other malaise and fatigue Anemia, unspecified type Gastritis without bleeding, unspecified chronicity, unspecified gastritis type documented in this encounter Care Teams Environmental Protection Forester Relationship Specialty Start Date End Date Cherelle Corcoran MD PCP - General Family Medicine 08/30/19 Mark Queen MD Consulting Physician Infectious Diseases 01/10/20 documented as of this encounter
--- OUTSIDE RECORDS SUMMARY | 2024-07-04 04:12 | XMS_ITS | Encounter Summary ---
Author Organization [facility] Address [address] [place] [address] Care Team Providers Care Field Care Manager Name Role Phone Cherelle Corcoran MD Primary Care Pro vider Mark Queen MD Unavailable [phone]- [phone] Xenia Padilla LPN Unavailable [phone] Encounter Details Date Type Department Care Team (Late st Contact Info) Description 06/24/2022 Telephone [facility] Primary Care [address] [facility] [address] [place] [address] Cherelle Corcoran MD [address] [place] [address] [address] [place] [address] Social History Tobacco Use Types [...] you attend chur ch or hoahaoism services? Never 09/10/2021 Do you belong to [...] slept in a chcf (including now)? No 09/10/2021 Comments No Sex and Gender Information Value Date Recorded Sex Assigned at Not on file Legal Sex Female 9:03 AM INTERNAL COMMUNICATIONS SPECIALIST Gender Identity Female 02/08/2020 6:39 PM CDT Sexual Orientation Not on file documented as of this encounter Miscellaneous Notes * Telephone Encounter - Yoly Elkins LPN - 06/24/2022 3:41 PM CST JOY completed by Taniya Padilla, appointment scheduled for 07/01/2022. RNAL COMMUNICATIONS SPECIALIST * Telephone Encounter - Cherelle Corcoran MD - 06/24/2022 9:03 AM CST Please call to schedule TCM, discharged 06/22. thanks RNAL COMMUNICATIONS SPECIALIST documented in this encounter Plan of Treatment Upcoming Encounters Date Type Department Care Team (Latest Contact Info) Description 07/13/2024 9:00 AM INTERNAL COMMUNICATIONS SPECIALIST Hospital Encounter [facility] [address] [place] [address] Jaya Grier MD [facility] [place] [address] 07/13/2024 9:00 AM INTERNAL COMMUNICATIONS SPECIALIST - 07/13/2024 9:30 AM INTERNAL COMMUNICATIONS SPECIALIST Surgery [facility] [address] [place] [id number] Jaya Grier MD [address] [place] [id number] ESOPHAGOGASTRODUODENOSCOPY Scheduled Procedures Name Priority Associated Diagnoses Date/Ti me ESOPHAGOGASTRODUODENOSCOPY Anemia, unspecified type Gastritis without bleeding, unspecified chronicity, unspecified gastritis type 07/13/2024 9:00 AM INTERNAL COMMUNICATIONS SPECIALIST COLONOSCOPY Iron deficiency anemia due to chronic blood loss documented as of this encounter Visit Diagnoses Not on filedocumented in this encounter Care Teams Field Care Manager Relationship Specialty Start Date End Date Cherelle Corcoran MD PCP - General Family Medicine 08/30/19 Mark Queen MD Consulting Physician Infectious Diseases 01/10/20 Xenia Padilla LPN [address] [place] [address] [address] [place] [address] Edge Banding Off Bearer 06/24/22 06/24/22 documented as of this encounter
--- OUTSIDE RECORDS SUMMARY | 2024-07-04 04:12 | XMS_ITS | Encounter Summary ---
Author Organization [facility] Address [address] [place] [address] Care Team Providers Care Bar Attendant Name Role Phone Cherelle Corcoran MD Primary Care Pro vider Mark Queen MD Unavailable [phone]- [phone] Reason for Visit * Reason Comments Hospital Follow Up Encounter Details Date Type Department Care Team (Late st Contact Info) Description 07/01/2022 3:30 PM LINE CREWMAN Office Visit [facility] Primary Care [address] [place] [address] Cherelle Corcoran MD [address] [place] [address] [address] [place] [address] 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 2 diabetes mellitus (CMS/HCC) (HCC) (Primary Dx); Discoloration of skin of toe Social History Tobacco Use Types Packs/Day Years [...] you attend chur ch or restorationist services? Never 09/10/2021 Do you belong to [...] slept in a [facility] (including now)? No 09/10/2021 Comments No Sex and Gender Information Value Date Recorded Sex Assigned at Not on file Legal Sex Female 9:03 AM LINE CREWMAN Gender Identity Female 02/08/2020 6:39 PM CDT Sexual Orientation Not on file documented as of this encounter Last Filed Vital Signs Vital Sign Reading Time Taken Comments Blood Pressure 130/82 07/01/2022 3:40 PM LINE CREWMAN Pulse 78 07/01/2022 3:40 PM LINE CREWMAN Temperature 36.1 ??C (96.9 ??F) 07/01/2022 3:40 PM CS T Respiratory Rate 18 07/01/2022 3:40 PM LINE CREWMAN Oxygen Saturation 97% 07/01/2022 3:40 PM LINE CREWMAN Inhaled Oxygen Concentration - - Weight - - Height - - Body Mass Index - - documented in this encounter Progress Notes * Cherelle Corcoran MD - 07/01/2022 3:30 PM CST Images from the original [...] I have noted any changes. Admission Date: 06/19/22 Discharge Date: 06/22/22 Date of Initial Post-discharge Interactive Contact: 06/24/22 Complexity of Medical Decision Making: high Metabolic Lab Results: There is no height or weight on file to calculate BMI. Glucose: Glucose Date Value Ref Range Status 06/22/2022 141 70 - 199 mg/dL Final Comment: Interpretive [...] was last revised 2017. Testing performed by: [facility], [address] [place] [address]., [id number] Glucose, POC Date Value Ref Range Status 06/22/2022 202 (H) 70 - 199 mg/dL Final Comment: Testing performed by: [facility], [address] [place] [address], [place]., [id number] Lab Results Component Value Date WBC 8.4 06/22/2022 HGB 8.4 (L) 06/22/2022 HCT 26.5 (L) 06/22/2022 MCV 93.6 06/22/2022 Lab Results Component Value Date GLUCOSE 202 (H) 06/22/2022 CALCIUM 8.8 06/22/2022 SODIUM 146 (H) 06/22/2022 POTASSIUM 4.3 06/22/2022 CO2 25 06/22/2022 CHLORIDE 112 (H) 06/22/2022 BUNSER 40 (H) 06/22/2022 CREATININE 1.80 (H) 06/22/2022 Major Procedures and Tests: Major Procedures and Tests Performed During Inpatient Stay: Studies Pending at Discharge (Includes Lab and Radiology) None Interval History: Initially concerned for uti, started on iv antibiotics, but culture negative so d/c. Stefano improved with fluids back to baseline CKD. Daughter states she has had multiple hospitalizations for weakness and found to have stefano, is wondering about reducing water pill given not having swelling anymore. Notes discoloration on L distal great toe. Problem 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 2 diabetes mellitus ([facility]) ([facility]) Current Outpatient Medications Medication Sig Dispense Refill [...] 2nd Gen Pen Needle 32 gauge x / needle USE TO INJECT BASAGLAR EVERY NIGHT AT BEDTIME benztropine (COGENTIN) 1 mg tablet Take 1 tablet (1 mg total) by mouth nightly 30 tablet 11 blood pressure monitor kit Check BP as instructed 1 kit 0 capsaicin (ZOSTRIX) 0.025 % cream Apply topically 2 (two) times a day 60 g carvediloL (COREG) 3.125 mg tablet [...] flash glucose scanning reader (FreeStyle Madhav [address]) [facility] Use to continually [...] mouth 2 (two) times a day rx# [id number]) 60 tablet 11 insulin glargine 100 unit/mL [...] meals Plus sliding scale) [address] [facility] Check blood sugar up to 3 times a day 100 each 3 lidocaine (LIDODERM) 5 % Place 1 patch on the skin daily. apply on patch to the painful area once every day and leave on for 12 hours then off for 12 hours. Rx# [id number] in home 05/02/22 per Hanny Cruz PTA entered by Tamela Swanson RN 05/04/22 Indications: pain multivitamin with minerals tablet Take 1 tablet [...] SYRINGE-NEEDLE U-100 MISC) 3 times a day valsartan (DIOVAN) 40 mg tablet Take 1 tablet (40 mg total) by mouth daily 90 tablet 3 ketoconazole (NIZORAL) 2 % cream Apply topically 2 (two) times a day (Patient not taking: Reported on 06/17/2022) 30 g 0 miscellaneous medical supply (Blood Pressure Cuff) [facility] Use to check blood pressure daily (Patient not taking: Reported on 06/17/2022) 1 each 1 No current facility-administered medications for this visit. Review of Systems: Review of Systems Cardiovascular: Negative for leg swelling. Skin: Positive for wound. Neurological: Positive for weakness (improved). Physical Exam: BP 130/82 (BP Location: Left arm, Patient Position: Sitting) Pulse 78 Temp 36.1 ??C (96.9 ??F) (Temporal) Resp 18 SpO2 97% Physical Exam Gen: NAD, comfortable, appears as stated age Eyes: no conjunctival injection, EOMI ENMT: external ears symmetric CV: RRR without murmur, rub, gallop. No peripheral edema Pulm: good respiratory effort, CTAB no rhonchi, rales, or wheezes Skin: eschar of L distal great toe, warm and dry Ext: No lower extremity edema MSK/Neuro: using wheelchair Assessment/Plan Diagnoses and all orders for this visit: 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 2 diabetes mellitus (CMS/HCC) ([facility]) (Primary) Assessment & Plan: Will reduce lasix given recurrent STEFANO Recheck bmp in 1-2 weeks Orders: - Basic metabolic panel; Future Discoloration of skin of toe Comments: Advise fu with podiatry Coordination of Home care services and follow-up with specialist appointments confirmed. Instructions have been provided to and reviewed with the patient/caretaker prior to discharge. Follow up 1 month or sooner as needed Cherelle Corcoran MD CREWMAN documented in this encounter Miscellaneous Notes * Assessment & Plan Note - Cherelle Corcoran MD - 07/02/2022 4:49 PM CSTAssociated Problem(s): 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 2 diabetes mellitus (CMS/HCC) (HCC) (Deleted) Will reduce lasix given recurrent STEFANO Recheck bmp in 1-2 weeks CREWMAN documented in this encounter Plan of Treatment Upcoming Encounters Date Type Department Care Team (Latest Contact Info) Description 07/13/2024 9:00 AM LINE CREWMAN Hospital Encounter [facility] [address] [place] [address] Jaya Grier MD [facility] [facility] [address] [place] [id number] 07/13/2024 9:00 AM LINE CREWMAN - 07/13/2024 9:30 AM LINE CREWMAN Surgery [facility] [address] [place] [address] Jaya Grier MD [address] [facility] [address] [address] [place] [id number] ESOPHAGOGASTRODUODENOSCOPY Scheduled Procedures Name Priority Associated Diagnoses Date/Ti me ESOPHAGOGASTRODUODENOSCOPY Anemia, unspecified type Gastritis without bleeding, unspecified chronicity, unspecified gastritis type 07/13/2024 9:00 AM LINE CREWMAN COLONOSCOPY Iron deficiency anemia due to chronic blood loss documented as of this encounter Visit Diagnoses Diagnosis 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 2 diabetes mellitus (CMS/HCC) (HCC)- Primary Discoloration of skin of toe Anemia, unspecified type Gastritis without bleeding, unspecified chronicity, unspecified gastritis type documented in this encounter Care Teams Bar Attendant Relationship Specialty Start Date End Date Cherelle Corcoran MD PCP - General Family Medicine 08/30/19 Mark Queen MD Consulting Physician Infectious Diseases 01/10/20 documented as of this encounter
--- OUTSIDE RECORDS SUMMARY | 2024-07-04 04:12 | XMS_ITS | Encounter Summary ---
Author Organization [facility] Healthcare Address [address] [place] [address] Care Team Providers Care Greenhouse Superintendent Name Role Phone Cherelle Corcoran MD Primary Care Pro vider Mark Queen MD Unavailable [phone] Melania Lee RN Unavailable [phone] Reason for Visit * Reason Comments Altered Mental Status * Auth/Cert Specialty Diagnoses / Procedures Referred By Contac t Referred To Contact Diagnoses Weakness Urinary tract infection without hematuria, site unspecified Procedures na Referral ID Status Reason Start Date Expiration Date Visits Re quested Visits Authorized [id number] 1 1 Encounter Details Date Type Department Care Team (Late st Contact Info) Description 08/01/2022 12:36 PM INFORMATICS CONSULTANT - 08/07/2022 8:00 PM INFORMATICS CONSULTANT Hospital Encounter [place] [id number] [place] [address] Anam Ayers DO [address] [place] [address] [place] [address] [place] [address] [employer] [facility] [address] [place] [address] [place] [address] [facility] [address] [place] [address] Urinary tract infection without hematuria, site unspecified (Primary Dx); Weakness; Type 2 diabetes mellitus with diabetic neuropathy, with long-term current use of insulin ([facility]/HCC) ([facility]) Discharge Disposition: Discharge to home or self [...] How often do you attend chur or confucianist services? More than 4 times per year 08/08/2022 Do you belong to any clubs o r organizations such as bahai groups, unions, fraternal or athletic groups, or [...] [place] [facility] (including now)? No 08/08/2022 Comments No Sex and Gender Information Value Date Recorded Sex Assigned at Not on file Legal Sex Female 9:03 AM INFORMATICS CONSULTANT Gender Identity Female 02/08/2020 6:39 PM CDT Sexual Orientation Not on file documented as of this encounter Last Filed Vital Signs Vital Sign Reading Time Taken Comments Blood Pressure 124/64 08/07/2022 3:00 PM INFORMATICS CONSULTANT Pulse 69 08/07/2022 3:00 PM INFORMATICS CONSULTANT Temperature 36.9 ??C (98.5 ??F) 08/07/2022 3:00 PM CS T Respiratory Rate 18 08/07/2022 3:00 PM INFORMATICS CONSULTANT Oxygen Saturation 98% 08/07/2022 3:00 PM INFORMATICS CONSULTANT Inhaled Oxygen Concentration - - Weight 72.6 kg (160 lb 0.9 oz) 08/02/2022 12:15 AM INFORMATICS CONSULTANT Height 157.5 cm (5' 2.01 ) 08/02/2022 12:[address] Body Mass Index 29.27 08/02/2022 12:15 AM INFORMATICS CONSULTANT documented in this encounter Discharge Summaries * Marsha Marte, OPERATOR ELECTRONIC WARFARE - 08/07/2022 10:33 AM CST Inpatient Discharge Summary Name: Sixto Chakraborty Age: 71 y.o. : 1950 Attending Physician: Lupillo Doe, * Admission Date/Time: 08/01/2022 Discharge Date: 08/07/2022 Primary Care Physician: Cherelle Corcoran MD Discharging Provider: Marsha Marte NP Discharge Diagnose: AMS HOSPITAL COURSE AND HISTORY OF PRESENT ILLNESS Sixto Chakraborty was admitted 08/01/2022 PER HPI: Patient is a 71 y.o. female with past medical history of hyperlipidemia, hypertension, diabetes type 2, schizophrenia, dementia, Parkinson diabetes neuropathy, depression and arthritis who presented to the emergency room with complaints of generalized weakness, fatigue and hypotension. Patient is apoor historian with forgetfulness and therefore information for this history and physical is being obtained per ER chart review. Per chart review, patient was her physical therapy session and was noted to be off from her baseline. She was therefore brought the emergency room further evaluation. Currently patient denies chest pain, shortness of breath chills, fever, nausea, abdominal pain, constipation or diarrhea. On arrival to Emergency Room, vital signs, temp 98.3??, pulse 73, respirations 16, BP 129/57, O2 sats 97%. Currently on room air. Labs, HGB 9.2, HCT 29.0, creatinine 1.96, AST 65, ALT 73, alk phos 158. Troponins elevated significant delta. COVID negative. Urinalysis with 2+ leukocyte esterase, WBC's>50, +1 bacteria. Chest x-ray showed no active pulmonary disease. In the ED, was started on IV ceftriaxone. Due to above, patient is being admitted for further evaluation, and management. Hospital Course: Altered mental status, POA -With history of dementia -initially thought 2/2 urinary tract infection however urine cx insignificant growth -resolving UTI ruled out per cx DC Rocephin Diabetes type 2 with hyperglycemia -A1C 8.3 -treated with SSI , Lantus Generalized weakness -PT OT Hypertension, -cont Hydralazine, Coreg Elevated troponins, associated with significant delta -cardiology following -stress test normal CKD 3 -Creatinine at baseline -Avoid nephrotoxins, initially held losartan and Lasix Hyperlipidemia -Continue statin Schizophrenia/depression/dementia -Continue Risperdal. Supportive care Parkinson -Continue Cogentin Diabetes neuropathy -Continue pregabalin Arthritis -Continue pain control p.r.n. Normocytic anemia, monitor Hb Mildly Elevated LFT's -Monitor labs R great toe necrosis -galen 09/2021 normal -f/u with podiatry at discharge Lab / Imaging Review: Recent Labs Lab Units 08/07/22 1007 08/06/22 0606 08/03/22 0635 WBC K/cumm 9.0 9.0 10.0* HEMOGLOBIN g/dL 9.2* 8.0* 8.6* HEMATOCRIT % 29.9* 26.0* 27.7* PLATELETS K/cumm 325 272 302 Recent Labs Lab Units 08/07/22 1235 08/07/22 1007 08/07/22 0732 08/06/22 0748 08/06/22 0606 08/03/22 0748 08/03/22 0635 08/01/22 1841 08/01/22 1100 SODIUM mmol/L -- 141 -- -- 139 -- 145 < > 139 POTASSIUM PLASMA mmol/L -- 4.9 -- -- 4.4 -- 4.1 < > 4.6 CO2 mmol/L -- 22 -- -- 22 -- 26 < > 25 ANIONGAP mmol/L -- 13 -- -- 11 -- 11 < > 12 GLUCOSE mg/dL -- 219* -- -- 242* -- 245* < > 242* POC GLUCOSE MONITOR mg/dL 180 -- 152 < > -- < > -- < > -- BUN SERUM mg/dL -- 55* -- -- 54* -- 50* < > 45* CREATININE mg/dL -- 2.24* -- -- 1.96* -- 1.82* < > 1.96* CALCIUM mg/dL -- 9.6 -- -- 8.9 -- 9.7 < > 9.3 ALBUMIN g/dL -- -- -- -- -- -- -- -- 3.4* ALK PHOS Units/L -- -- -- -- -- -- -- -- 158* ALT Units/L -- -- -- -- -- -- -- -- 73* AST Units/L -- -- -- -- -- -- -- -- 65* BILIRUBIN TOTAL mg/dL -- -- -- -- -- -- -- -- <0.2 < > = values in this interval not displayed. Lab Results Lab Value Date/Time TROPONINI <0.04 05/04/2014 1350 No results found for: BNP Lab Results Component Value Date TSH 1.52 09/02/2021 TSH 1.54 02/07/2021 TSH 0.990 10/16/2020 ECG 12 lead Result Date: 08/03/2022 Narrative: Vent Rate: 74 bpm RR Interval: 808 msec AL Interval: 173 msec QRS Duration: 80 msec QT Interval: 425 msec QTC Interval: 452 msec P-R-T [place]: 64 - 17 - 16 degrees SINUS RHYTHM NORMAL ECG Electronically Signed By: Nathalia Velásquez MD XR Chest 1 Vw Portable Result Date: 08/01/2022 Narrative: EXAMINATION: XR CHEST 1 VIEW DATE: 08/01/2022 4:20 PM HISTORY: Weakness FINDINGS: No infiltrate, effusion or pneumothorax is present. Heart size, mediastinum and pulmonary vascularity are normal. Impression: No active pulmonary disease. Electronically signed by: Alpesh Jaquez M.D. Stress Test for Myocardial Perfusion Result Date: 08/06/2022 Narrative: [place] [address] MPI Imaging Report Patient Name: SIXTO CHAKRABORTY : 1950 Study Date: 08/05/2022 7:10:00 AM Gender: F Tech: Location: [place] [address] Ref.Provider: WILLIAM JUARES Height(Cm): BSA: Weight(Kg): Heart Rate: 127 Order Provider: WILLIAM JUARES Procedures: Pharmacologic SPECT Report.: Myocardial perfusion imaging with Tetrofosmin SPECT at rest and post regadenoson (Lexiscan) infusion. Indications: Chest Pain. Findings: Procedure Data: Resting HR 78 bpm. PeakHR: 89 bpm. Predicted Maximal HR 149 bpm. Target HR: 127 bpm. Percent Max Predicted HR Achieved: 59.73 %. Baseline BP: 173/61 mmHg. Peak BP: 128/47 mmHg. Exercise Time: 00:39. Reason for Termination:Lexiscan protocol complete. Supervising Physician: The Supervising Physician is Dr. Lynch. Resting ECG: Normal sinus rhythm. Post Pharm ECG: No diagnostic ST changes. Arrhythmia: No arrhythmias seen. Cardiac Symptoms With Stress: Symptoms with stress were Dyspnea and dizziness. Symptoms were resolved with caffeine. Conclusions: 1. Test negative for pharmacologic induced inducible ishemia by electrocardiographic criteria at maximal work load. 2. SPECT to follow and should be correlated with this study. Electronically Signed By: Ted Lynch 2022-08-06 09:19:04 INFORMATICS CONSULTANT CC: CC: NM MPI SPECT (Rest and/or Stress) Multiple Studies Result Date: 08/05/2022 Narrative: EXAMINATION: MYOCARDIAL IMAGING (PHARMACOLOGIC-STRESS AND REST/SPECT/CT) DATE OF STUDY: 08/05/2022 RADIOPHARMACEUTICAL: 11 mCi, 32.1 mCi Tc-99m tetrofosmin i.v. HISTORY: 71-year-old female with elevated troponin. Diabetic neuropathy, type II diabetes mellitus, hypertension, amputation of r ight toe, CKD stage IV, left leg DVT. Evaluate for ischemia and/or myocardial infarction. The patient's body mass index (BMI) was 29.3. For details of the electrocardiographic portion of today's exercise stress examination, please refer to the dedicated report on Epic FINDINGS: Both stress and restimaging were performed, in the following order: rest/stress Stress imaging: An intravenous infusionof Regadenoson (0.4 mg of A2A adenosine receptor agonist Regadenoson (Lexiscan), infused intravenously over approximately 10 seconds, followed approximately after another 20 seconds by tracer infusion) was performed without low level exercise on the date indicated above. A complete description of the stress test and electrocardiographic results supervised by staff of the Cardiovascular Division is available in the [facility] electronic medical record. Standard myocardial perfusion images were obtainedafter tracer injection at the peak effect of the drug. Low-dose CT images spanning the heart were obtained for attenuation correction. Rest Imaging: Standard myocardial perfusion images were obtainedafter resting tracer injection. Low-dose CT images spanning the heart were obtained for attenuationcorrection. COMPARISON: CT chest dated 11/16/2021. The projection images were reviewed for image quality, and reveal no significant artifacts. There is normal distribution of activity in the left andright ventricular myocardium on both stress and rest [...] 4 mm left lower lobe pulmonary granuloma. Impression: 1. Normal exercise and rest myocardial perfusion. 2. Normal left ventricular size and systolic function. 3. Mild coronary artery calcifications. Dictated by: David Mccauley MD The radiologyattending physician has personally reviewed this study, and had reviewed and/or edited this writtenreport and agrees with it. Electronically signed by: Wally Maxwell M.D. @DARLINE@ Surgeries/procedures performed during stay: Exam Day of Discharge: Pulse: 64 Resp: 16 BP: 121/69 Temp: 36.8 ??C (98.2 ??F) Weight: 72.6 kg (160 lb 0.9 oz) SEE LAST PROGRESS NOTE FOR EXAM Disposition:Discharge to home or self care Discharge Condition: improved Discharge Instructions: DISCHARGE MEDICATION LIST: Your medication list CHANGE how you take these medications Instructions Last Dose Given Next Dose Due carvediloL 6.25 mg tablet Commonly known as: COREG What changed: medication strength how much to take 6.25 mg, oral, 2 times daily with meals (bkfst, dinner) furosemide 40 mg tablet Commonly known as: LASIX What changed: additional instructions 40 mg, oral, 2 times daily insulin glargine 100 unit/mL (3 mL) pen for injection Commonly known as: LANTUS, BASAGLAR, SEMGLEE What changed: how much to take 25 Units, subcutaneous, Nightly insulin lispro 100 unit/mL pen for injection Commonly known as: HumaLOG, ADMELOG What changed: additional instructions 12 Units, subcutaneous, 3 times daily with meals polyethylene glycol 17 gram packet Commonly known as: MIRALAX What changed: when to take this reasons to take this 17 g, oral, Daily CONTINUE taking these medications Instructions Last Dose [...] as: LIPITOR 20 mg, oral, Daily BD Alryn 2nd Gen Pen Needle 32 [...] oral, Daily with breakfast FreeStyle Madhav 2 [place] misc Doctor's comments: May or may not need Generic drug: flash glucose scanning reader Use to continually monitor glucose FreeStyle Madhav 2 Sensor kit Doctor's comments: Type 2 diabetic, on 2 insulin Generic drug: flash glucose sensor Use to continually monitor glucose, change every 14 days INSULIN SYRINGE-NEEDLE U-100 MISC 3 times a [...] mg, oral, Nightly STOP taking these medications capsaicin 0.025 % cream Commonly known as: ZOSTRIX ketoconazole 2 % cream Commonly known as: NIZORAL lidocaine 5 % Commonly known as: LIDODERM multivitamin with minerals tablet valsartan 40 mg tablet Commonly known as: DIOVAN Where to Get Your Medications These medications were sent to [id number] - [place] [address], [place] [address] carvediloL 6.25 mg tablet insulin glargine 100 unit/mL (3 mL) pen for injection Follow-Up: Cherelle Corcoran MD [address] [id number] 1-2 weeks Other Follow-up keep scheduled appt with cafe aide and size mixer Other Follow-up pt to follow up with podiatry as outpt; dtr instructed to call today for r/u appt Outpatient Follow-Up: Future Appointments Date Time Provider Department Center 08/14/2022 10:00 AM Cherelle Corcoran MD [facility] 230 PC 09/02/2022 2:30 PM Stefani Tyson OT [facility] ON OP OT [facility] ORT NEUR 09/09/2022 4:15 PM Cherelle Corcoran MD [facility] 230 PC 09/10/2022 1:45 PM Markie Ryan MD [id number] [facility] Specialty 09/25/2022 3:45 PM [facility] MOB 1 MAMMO RM 1 [id number] BRST MHE MOB 1 10/16/2022 8:00 AM Macey Ellis NP NeuroBlvle [facility]ty 10/21/2022 4:20 PM Anant Kauffman MD EML CAM 5C HEATH IM EML 12/10/2022 1:15 PM Santo Vail MD MB CARD MHE [facility] Specialty @DCLABSOTHER@ I have spent a total of 40 minutes on interview, examination, final orders, recommendations, and care coordination for this hospital discharge. Thank you very much for allowing the [facility] Adult Hospitalist Service to participate in the care of this patient. If you have any questions, please don't hesitate to call. [phone] Signed: Marsha Marte NP, 08/07/2022, 12:58 PM Cosigned by Lupillo Doe MD at 08/11/2022 8:18 PM INFORMATICS CONSULTANT RMATICS CONSULTANT RMATICS CONSULTANT documented in this encounter Discharge Instructions * Discharge Instr - Diet* Donna Paul RD - 08/07/2022 2:36 PM INFORMATICS CONSULTANT Recommend to follow a consistent carbohydrate/heart healthy [...] tea and drink water throughout the day. Recommend to follow up with outpatient nutrition counseling, ask your doctor for referral and call [phone] to make an appointment. Additional Resources [place] [employer]: www.diabetes.org/nutrition [place] [employer]: www.heart.org/en/healthy-living/healthy-eating Recommend to continue drinking Mat two times per day for 30 days or until your wound is healed. Mat can be purchased at a reduced cost here (the most affordable option) at [facility] in [address] Office [address], or you may purchase it at [facility], [facility] or on [employer]. If you order from [employer], you can use the coupon code [id number] for a $15 savings. Mix thepacket of Mat with 8-10 fluid ounces of water, diet clear soda, or whichever beverage you prefer.Once mixed, it must be consumed within 24 hours. Continue to include high sources of protein (chicken, turkey, peanut butter, nuts, beans, fish, eggs, cheese, Nepalese yogurt, etc.) in your diet to helpaid in wound healing. Please call the Dietitian office with any diet related concerns . Additional information is available online at [email or web address] RMATICS CONSULTANT documented in this encounter Medications at Time of Discharge acetaminophen (TYLENOL) 325 mg tablet Take 2 tablets (650 mg total) by mouth every 6 (six) hours as needed for pain 04/21/202 3 albuterol HFA (ProAir HFA) 90 mcg/actuation [...] current use of insulin ([facility]) USE TO INJECT BASAGLAR EVERY NIGHT AT [...] current use of insulin ([facility]) Inject 0.5 mL (1.5 mg total) under [...] flash glucose scanning reader (FreeStyle Madhav 2 [place]) miscIndications:Ty pe 2 diabetes mellitus with diabetic neuropathy, with long-term current use of insulin ([facility]) Use to continually monitor glucose 1 each 10/01/2021 3 flash glucose sensor (FreeStyle Madhav 2 Sensor) kitIndications:Typ e 2 diabetes mellitus with diabetic neuropathy, with long-term current use of insulin ([facility]) Use to continually monitor glucose, change every 14 days 6 kit 3 10/01/2021 3 furosemide (LASIX) 40 mg tablet Take 1 tablet (40 mg total) by mouth 2 (two) times a day 60 tablet 11 10/16/2021 3 insulin glargine 100 unit/mL (3 mL) pen for injectionIndicatio ns:Type 2 diabetes mellitus with diabetic neuropathy, with long-term current use of insulin ([facility]) Inject 25 Units under the skin nightly [...] Pressure Cuff) miscIndications:Hy pertension associated with diabetes ([facility]) Use to check blood pressure daily 1 [...] skin nightly 45 mL 4 08/07/2022 3 carvediloL (COREG) 6.25 mg tablet Take 1 tablet (6.25 mg total) by mouth 2 (two) times a day with meals 60 tablet 08/07/2022 3 documented in this encounter Discharge Disposition Disposition Code Departure Means Destination Discharge to home or self care documented in this encounter Progress Notes * Donna Paul, RD - 08/07/2022 2:36 PM CST Nutrition Assessment Reason for Assessment: Initial Nutrition Assessment- A1C > 8 also w findings of new wound Encounter Date: 08/07/22 2:36 PM Nutrition Assessment and Plan: Patient is a 71 y.o. female. Admit Dx: Weakness [R53.1] Urinary tract infection without hematuria, site unspecified [N39.0]. Admitted on 08/01/2022, currentLOS is 6 days. PMH includes DM, HLD, HTN, schizophrenia (also w documented Hx of dementia). 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 New findings of necrosis to R great toe this admission, general surgery consulted. Was sitting in chair eating lunch when RD entered room. Stated appetite has been good and that she has been tolerating diet well, avg.69% intakes of meal. Currently on 2000kcal consistent CHO, renal, 2gm Na+ restricted diet. K WDL, no PO4 available. Glucose was elevated in the 200s yesterday but improved today. HgA1c 8.3. Denied N/V/D/C. GI WNL. Due to wounds, pt w increased nutrition needs. Will discontinue renal diet restriction and order Ensure High PRO bid, Mat bid. Encouraged po intakes and will continue to follow nutrition parameters and plans of care. Although pt w elevated hgA1c, not appropriate for diet education due to Hx of dementia. Current diet order: Adult Diet Restricted; 2 GM Sodium; Consistent Carb 2000 chanelle; Renal Pt intake is inadequate. PO intakes: 100% x 2; 75% x 3; 50% x 2; 25% x 2 Nutrition Diagnosis 1: Increased nutrient needs (protein) Related to: Wounds Evidenced by: Physicalfinding Interventions: Initial assessment, Follow up per policy, Modify diet Medical Food Supplement Monitoring and Evaluation: Appetite, Blood glucoses, Labs, Weight changes, Wound healing, Plan of care, PO intake, Diet-related questions, Discharge plans, Electrolyte changes, Food preferences Goals: Adequate nutrition to meet estimated needs by next assessment, Oral intake to meet 75% estimated nutritional needs by next assessment, Tolerance of medical food supplement by next assessment, Promote wound healing Estimated needs: Total Kcal/kg Estimated Needs : 1815 based on Kcal/k. Type of Weight Used for Estimated Kcals:Current Total Protein Estimated Needs (gm): 87.12 Protein Needs Based on g/k.2 Type of Weight Used for Estimated Protein : Current. Estimated Fluid Needs Type of Weight Used for Estimated Fluid Needs: Current Fluid Needs Based on : 1 ml/kcal Total Fluid Estimated Needs: 1815 Objective Anthropometrics Weight: 72.6 kg (160 lb 0.9 oz) Admission Weight : 72.6 kg Weight Change: 0.02 kg (0.05 lbs) IBW/kg (Calculated) : 49.9 kg Height: 157.5 cm (5' 2.01 ) Weight in (lb) to have BMI = 25: 136.4 BMI (Calculated): 29.3 BMI Classification: BMI 25.0 - 29.9 Overweight 3 Day I/O Summary 08/05 1900 - 08/07 0659 In: 240 [P.O.:240] Out: 1050 [Urine:1050] Temp: 36.8 ??C (98.2 ??F) Past Medical History: Diagnosis Date Arthritis Depression Diabetic neuropathy (HCC) Hyperlipidemia Hypertension Schizophrenia (HCC) Type 2 diabetes mellitus (HCC) Medications and Lab Review: Scheduled Meds: apixaban, 5 mg, oral, Q12H atorvastatin, 20 mg, oral, Daily benztropine, 1.5 mg, oral, Nightly carvediloL, 6.25 mg, oral, BID with meals (bkfst, dinner) famotidine, 10 mg, oral, Nightly ferrous sulfate, 65 mg of elemental iron, oral, Daily with breakfast furosemide, 40 mg, oral, BID hydrALAZINE, 25 mg, oral, TID insulin glargine, 25 Units, subcutaneous, Nightly insulin lispro, 0-10 Units, subcutaneous, TID with meals insulin lispro, 0-5 Units, subcutaneous, Nightly insulin lispro, 10 Units, subcutaneous, TID with meals [Held by Provider] losartan, 25 mg, oral, Daily multivitamin with minerals, 1 tablet, oral, Daily polyethylene glycol, 17 g, oral, Daily pregabalin, 150 mg, oral, Nightly risperiDONE, 2 mg, oral, Nightly Continuous Infusions: Sodium Date Value Ref Range Status 08/07/2022 141 135 - 145 mmol/L Final Potassium, pl Date Value Ref Range Status 08/07/2022 4.9 3.3 - 4.9 mmol/L Final BUN Date Value Ref Range Status 08/07/2022 55 (H) 8 - 25 mg/dL Final Creatinine Date Value Ref Range Status 08/07/2022 2.24 (H) 0.60 - 1.10 mg/dL Final Calcium Date Value Ref Range Status 08/07/2022 9.6 8.5 - 10.3 mg/dL Final Lab Results Component Value Date HGBA1C 8.3 (H) 08/02/2022 Lab Results Component Value Date GLUCOSE 180 08/07/2022 GLUCOSE 219 (H) 08/07/2022 GLUCOSE 152 08/07/2022 GLUCOSE 130 08/07/2022 GLUCOSE 208 (H) 08/06/2022 GLUCOSE 213 (H) 08/06/2022 GLUCOSE 242 (H) 08/06/2022 Nursing Assessment: Last BM Date: 08/12/22 Bowel Sounds (All Quadrants): Active Timoteo Scale Score: 20 Skin Integrity: Other (Comment) (black tip Rt big toe) Diet Instructions Recommend to follow a consistent [...] tea and drink water throughout the day. Recommend to follow up with outpatient nutrition counseling, ask your doctor for referral and call [phone] to make an appointment. Additional Resources [place] [employer]: www.diabetes.org/nutrition [place] [employer]: www.heart.org/en/healthy-living/healthy-eating Recommend to continue drinking Mat two times per day for 30 days or until your wound is healed. Mat can be purchased at a reduced cost here (the most affordable option) at [facility] in the [facility] in [address], or you may purchase it at [facility] or on [employer]. If you order from [employer], you can use the coupon code [id number] for a $15 savings. Mix thepacket of Mat with 8-10 fluid ounces of water, diet clear soda, or whichever beverage you prefer.Once mixed, it must be consumed within 24 hours. Continue to include high sources of protein (chicken, turkey, peanut butter, nuts, beans, fish, eggs, cheese, Nepalese yogurt, etc.) in your diet to helpaid in wound healing. Please call the Dietitian office with any diet related concerns . Additional information is available online at [email or web address] Nutrition Follow-Up : 08/12/[address],LD RMATICS CONSULTANT * Marsha Marte, OPERATOR ELECTRONIC WARFARE - 08/07/2022 12:14 PM CST INPATIENT PROGRESS NOTE - HOSPITALIST Sixto Chakraborty is a 71 y.o. female at Hospital Day ( LOS: 6 days ) Chief Complaint Chief Complaint Patient presents with Altered Mental Status Subjective Interval History Patient seen and examined; chart reviewed. 08/07: Pt sitting up in chair with no complaints, discharge medications discussed with Cardiology. RN noted right great toe tip with necrosis, pedal pulse positive, patient denies pain, no redness, swelling, nontender to palpation. Patient reports this has been present for 1 week. Patient denied any trauma. Will discuss with collaborating MD for further recommendations and whether discharge will be canceled or not. GS consulted for evaluation 08/06: pt sitting up in chair denied sob, chest pain. Stress test neg. BS elevated increase insulin 08/05: pt to undergo stress test today 08/04: bp better controlled today, BS trending down 08/03: Bp elevated , pt reports, I'm feeling bad she denied n/v/pain just reported doesn't feel good. Objective: Temp Av.8 ??C (98.2 ??F) Min: 36.7 ??C (98 ??F) Max: 36.9 ??C (98.4 ??F) BP Min: 102/51 Max: 180/71 Pulse Av.7 Min: 64 Max: 76 Resp Av.7 Min: 16 Max: 18 SpO2 Av.7 % Min: 94 % Max: 98 % Date 08/06/22699 - 08/07/2265808/07/22699 - 08/08/22 0659 Shift 1082-4080 4765-1264 24 Hour Total 7501-5067 2353-2150 24 Hour Total INTAKE P.O. 240 240 Shift Total(mL/kg) 240(3.3) 240(3.3) OUTPUT Urine(mL/kg/hr) 1050(1.2) 1050(0.6) 400 400 Shift Total(mL/kg) 1050(14.5) 1050(14.5) 400(5.5) 400(5.5) NET -810 -810 -400 -400 Weight (kg) 72.6 72.6 72.6 72.6 72.6 72.6 Intake/Output Summary (Last 24 hours) at 08/07/2022 1214 Last data filed at 08/07/2022 0705 Gross per 24 hour Intake 240 ml Output 1050 ml Net -810 ml Temp (24hrs), Av.8 ??C (98.2 ??F), Min:36.7 ??C (98 ??F), Max:36.9 ??C (98.4 ??F) PHYSICAL EXAMINATION General: Appears to be in no acute distress. HEENT: Head normocephalic, atraumatic. PERRLA. EOMI. Conjunctivae are clear. Sclerae are anicteric.Nares are patent. . Mucous membranes are moist. Neck: Supple. No lymphadenopathy, JVD. Lungs: Clear to auscultation. No crackle or wheezing noted. Cardiovascular: Normal S1, S2. Abdomen: Soft, nontender, nondistended with positive bowel sounds. obese Extremities: No clubbing, cyanosis or edema. Obese Neuro: alert and oriented Active Scheduled and PRN meds apixaban, 5 mg, Q12H atorvastatin, 20 mg, Daily benztropine, 1.5 mg, Nightly carvediloL, 6.25 mg, BID with meals (bkfst, dinner) famotidine, 10 mg, Nightly ferrous sulfate, 65 mg of elemental iron, Daily with breakfast furosemide, 40 mg, BID hydrALAZINE, 25 mg, TID influenza quadrivalent [id number], 0.7 mL, Once insulin glargine, 25 Units, Nightly insulin lispro, 0-10 Units, TID with meals insulin lispro, 0-5 Units, Nightly insulin lispro, 10 Units, TID with meals [Held by Provider] losartan, 25 mg, Daily multivitamin with minerals, 1 tablet, Daily polyethylene glycol, 17 g, Daily pregabalin, 150 mg, Nightly risperiDONE, 2 mg, Nightly acetaminophen, 650 mg, Q4H PRN albuterol HFA, 2 puff, Q4H PRN (RT) dextrose, 15 g, Q15 Min PRN Or dextrose, 250 mL, Q15 Min PRN docusate sodium, 100 mg, BID PRN glucagon, 1 mg, Q30 Min PRN ondansetron ODT, 4 mg, Q6H PRN Or ondansetron, 4 mg, Q6H PRN sodium chloride 0.9%, 10 mL, PRN Continuous Infusions: Lab Review Recent Labs Lab Units 08/07/22 1007 08/06/22 0606 08/03/22 0635 WBC K/cumm 9.0 9.0 10.0* HEMOGLOBIN g/dL 9.2* 8.0* 8.6* HEMATOCRIT % 29.9* 26.0* 27.7* PLATELETS K/cumm 325 272 302 NEUTROS PCT % 66.6 65.5 55.0 LYMPHS PCT % 25.1 24.6 34.4 MONOS PCT % 5.8 7.2 7.7 EOS PCT % 2.0 2.2 2.3 Recent Labs Lab Units 08/07/22 1007 08/07/22 0732 08/07/22 0239 08/06/22 0748 08/06/22 0606 08/03/22 0748 08/03/22 0635 08/01/22 1841 08/01/22 1100 SODIUM mmol/L 141 -- -- -- 139 -- 145 < > 139 POTASSIUM PLASMA mmol/L 4.9 -- -- -- 4.4 -- 4.1 < > 4.6 CHLORIDE mmol/L 106 -- -- -- 106 -- 108 < > 102 CO2 mmol/L 22 -- -- -- 22 -- 26 < > 25 ANIONGAP mmol/L 13 -- -- -- 11 -- 11 < > 12 GLUCOSE mg/dL 219* -- -- -- 242* -- 245* < > 242* POC GLUCOSE MONITOR mg/dL -- 152 130 < > -- < > -- < > -- BUN SERUM mg/dL 55* -- -- -- 54* -- 50* < > 45* CREATININE mg/dL 2.24* -- -- -- 1.96* -- 1.82* < > 1.96* CALCIUM mg/dL 9.6 -- -- -- 8.9 -- 9.7 < > 9.3 ALBUMIN g/dL -- -- -- -- -- -- -- -- 3.4* ALK PHOS Units/L -- -- -- -- -- -- -- -- 158* ALT Units/L -- -- -- -- -- -- -- -- 73* AST Units/L -- -- -- -- -- -- -- -- 65* BILIRUBIN TOTAL mg/dL -- -- -- -- -- -- -- -- <0.2 < > = values in this interval not displayed. Radiology: NM MPI SPECT (Rest and/or Stress) Multiple Studies Final Result 1. Normal exercise and rest myocardial perfusion. 2. Normal left ventricular size and systolic function. 3. Mild coronary artery calcifications. Dictated by: David Mccauley MD The radiology attending physician has personally reviewed this study, and had reviewed and/or edited this written report and agrees with it. Electronically signed by: Wally Maxwell M.D. Stress Test for Myocardial Perfusion Final Result XR Chest 1 Vw Portable Final Result No active pulmonary disease. Electronically signed by: Alpesh Jaquez M.D. ECG: Results for orders placed during the hospital encounter of 08/01/22 ECG 12 lead Narrative Vent Rate: 74 bpm RR Interval: 808 msec AL Interval: 173 msec QRS Duration: 80 msec QT Interval: 425 msec QTC Interval: 452 msec P-R-T [place]: 64 - 17 - 16 degrees SINUS RHYTHM NORMAL ECG Electronically Signed By: Nathalia Velásquez MD Assessment/Plan Patient Active Problem List Diagnosis Date Noted Urinary tract infection without hematuria, site unspecified 08/01/2022 Acute cystitis without hematuria 06/19/2022 Pulmonary nodule 11/16/2021 Physical deconditioning 11/15/2021 Left leg DVT ([facility]/HCC) ([facility]) 11/15/2021 Pressure ulcer 10/07/2021 Anemia 09/07/2021 Volume overload 09/06/2021 Late onset Alzheimer's dementia without behavioral disturbance ([facility]) 08/19/2021 Delirium 08/07/2021 Encounter for Medicare annual wellness exam 01/08/2021 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 2 diabetes mellitus ([facility]) ([facility]) 12/11/2020 Dementia ([facility]) 10/10/2020 Encounter for psychiatric assessment 10/10/2020 Schizoaffective disorder, bipolar type ([facility]) ([facility]) 10/10/2020 Hyperlipidemia associated with type 2 diabetes mellitus ([facility]) 04/03/2020 Iron deficiency anemia 04/02/2020 GERD (gastroesophageal reflux disease) 04/02/2020 Amputation of toe of right foot ([facility]) ([facility]) 01/19/2020 Hypertension associated with diabetes ([facility]) 12/13/2019 Schizoaffective disorder, bipolar type ([facility]) ([facility]) 08/30/2019 Type 2 diabetes mellitus with diabetic neuropathy, with long-term current use of insulin ([facility]) ([facility]) 08/30/2019 Diabetic neuropathy ([facility]) Altered mental status, POA -With history of dementia -initially thought 2/2 urinary tract infection however urine cx insignificant growth -resolving -Continue to monitor closely UTI ruled out per cx DC Rocephin Diabetes type 2 with hyperglycemia -A1C 8.3 -cont with SSI , Lantus -BS elevated; adjust insulin to reflect home dosage. Increase lantus to 25 units and add prandial insulin Generalized weakness -PT OT Hypertension, -cont Hydralazine, Coreg Elevated troponins, associated with significant delta -cardiology following -stress test normal CKD 3 -Creatinine at baseline -Avoid nephrotoxins, initially held losartan and Lasix -Monitor renal function closely Hyperlipidemia -Continue statin Schizophrenia/depression/dementia -Continue Risperdal. Supportive care Parkinson -Continue Cogentin Diabetes neuropathy -Continue pregabalin Arthritis -Continue pain control p.r.n. Normocytic anemia, monitor Hb Mildly Elevated LFT's -Monitor labs R great toe necrosis -galen 09/2021 normal -will consult VTE Prophylaxis Laboratory and imaging data independently reviewed by me Prior records and Care Everywhere if available were reviewed. Full Code CONSULTS IP CONSULT TO CARDIOLOGY IP CONSULT TO PHP MYSQL DEVELOPER Please note: This note was created in part using the M*Modal Fluency Direct dictation system. Credit Analyst variances May occur . Despite proofreading, typographical and Grammatical errors may occur. 08/07/2022 12:14 PM [facility] [phone] RMATICS CONSULTANT * Carolin Herr RN - 08/07/2022 11:18 AM CST Patient to d/c today. Call placed to patient daughter Areli CHAUDHRY left. Patient has a f/u with her PCP on 08/14. Goal is for patient to go home and resume outpatient therapy. No anticipated discharge needs identified. Discharge disposition: - Home Carolin Herr glove cuffer [phone] RMATICS CONSULTANT * William Juares MD - 08/07/2022 9:37 AM CST Daily Progress [facility] Cardiology OBJECTIVE: Past Medical History: Diagnosis Date Arthritis Depression Diabetic neuropathy (HCC) Hyperlipidemia Hypertension Schizophrenia (HCC) Type 2 diabetes mellitus (HCC) Family History Problem Relation Age of Onset Stomach cancer Father Scheduled Medications Medication Dose Route Frequency apixaban (ELIQUIS) tablet 5 mg 5 mg oral Q12H atorvastatin (LIPITOR) tablet 20 mg 20 mg oral Daily benztropine (COGENTIN) tablet 1.5 mg 1.5 mg oral Nightly carvediloL (COREG) tablet 6.25 mg 6.25 mg oral BID with meals (bkfst, dinner) famotidine (PEPCID) tablet 10 mg 10 mg oral Nightly ferrous sulfate delayed release tablet 65 mg of elemental iron 65 mg of elemental iron oral Daily with breakfast furosemide (LASIX) tablet 40 mg 40 mg oral BID hydrALAZINE (APRESOLINE) tablet 25 mg 25 mg oral TID insulin glargine (LANTUS, SEMGLEE) 100 unit/mL injection 25 Units 25 Units subcutaneous Nightly insulin lispro (HumaLOG, ADMELOG) 100 unit/mL injection 0-10 Units 0-10 Units subcutaneous TID withmeals insulin lispro (HumaLOG, ADMELOG) 100 unit/mL injection 0-5 Units 0-5 Units subcutaneous Nightly insulin lispro (HumaLOG, ADMELOG) 100 unit/mL injection 10 Units 10 Units subcutaneous TID with meals [Held by Provider] losartan (COZAAR) tablet 25 mg 25 mg oral Daily multivit indbmqqp-zmzd-ZD-calcium (THERA-M) tablet 1 tablet 1 tablet oral Daily polyethylene glycol (MIRALAX) packet 17 g 17 g oral Daily pregabalin (LYRICA) capsule 150 mg 150 mg oral Nightly risperiDONE (RisperDAL) tablet 2 mg 2 mg oral Nightly Recent Labs Lab Units 08/06/22 0606 08/03/22 0635 08/02/22 0542 08/01/22 1100 WBC K/cumm 9.0 10.0* 9.9 9.5 HEMOGLOBIN g/dL 8.0* 8.6* 9.0* 9.2* HEMATOCRIT % 26.0* 27.7* 28.3* 29.0* PLATELETS K/cumm 272 302 302 316 Recent Labs Lab Units 08/07/22 0732 08/07/22 0239 08/06/22 2116 08/06/22 1742 08/06/22 1229 08/06/22 0748 08/06/22 0606 08/03/22 0748 08/03/22 0635 08/02/22 0826 08/02/22 0542 08/01/22 1841 08/01/22 1100 SODIUM mmol/L -- -- -- -- -- -- 139 -- 145 -- 141 -- 139 POTASSIUM PLASMA mmol/L -- -- -- -- -- -- 4.4 -- 4.1 -- 4.3 -- 4.6 CHLORIDE mmol/L -- -- -- -- -- -- 106 -- 108 -- 106 -- 102 CO2 mmol/L -- -- -- -- -- -- 22 -- 26 -- 26 -- 25 ANIONGAP mmol/L -- -- -- -- -- -- 11 -- 11 -- 9 -- 12 GLUCOSE mg/dL -- -- -- -- -- -- 242* -- 245* -- 222* -- 242* POC GLUCOSE MONITOR mg/dL 152 130 208* 213* 239* < > -- < > -- < > -- < > -- BUN SERUM mg/dL -- -- -- -- -- -- 54* -- 50* -- 47* -- 45* CREATININE mg/dL -- -- -- -- -- -- 1.96* -- 1.82* -- 1.82* -- 1.96* CALCIUM mg/dL -- -- -- -- -- -- 8.9 -- 9.7 -- 9.2 -- 9.3 ALBUMIN g/dL -- -- -- -- -- -- -- -- -- -- -- -- 3.4* ALK PHOS Units/L -- -- -- -- -- -- -- -- -- -- -- -- 158* ALT Units/L -- -- -- -- -- -- -- -- -- -- -- -- 73* AST Units/L -- -- -- -- -- -- -- -- -- -- -- -- 65* BILIRUBIN TOTAL mg/dL -- -- -- -- -- -- -- -- -- -- -- -- <0.2 < > = values in this interval not displayed. Intake/Output Summary (Last 24 hours) at 08/07/2022 0937 Last data filed at 08/07/2022 0705 Gross per 24 hour Intake 240 ml Output 1450 ml Net -1210 ml Vitals: 08/06/22 1415 08/06/22 1955 08/07/22 0045 08/07/22 0725 BP: (!) 180/71 149/55 102/51 121/69 BP Location: Left arm Left arm Left arm Patient Position: Lying Lying Lying Pulse: 76 66 64 Resp: 16 Temp: 36.9 ??C (98.4 ??F) 36.7 ??C (98 ??F) 36.8 ??C (98.2 ??F) TempSrc: Oral Oral Oral SpO2: 98% 94% 98% Weight: Height: ASSESSMENT/PLAN: Patient Active Problem List Diagnosis Schizoaffective disorder, bipolar type (CMS/HCC) (HCC) Diabetic neuropathy (HCC) Type 2 diabetes mellitus with diabetic neuropathy, with long-term current use of insulin (CMS/HCC) (HCC) Hypertension associated with diabetes (HCC) Amputation of toe of right foot (CMS/HCC) ([facility]) Iron deficiency anemia GERD (gastroesophageal reflux disease) Hyperlipidemia associated with type 2 diabetes mellitus ([facility]) Dementia ([facility]) Encounter for psychiatric assessment Schizoaffective disorder, bipolar type ([facility]) ([facility]) 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 2 diabetes mellitus ([facility]) ([facility]) Encounter for Medicare annual wellness exam Delirium Late onset Alzheimer's dementia without behavioral disturbance ([facility]) Volume overload Anemia Pressure ulcer Physical deconditioning Left leg DVT ([facility]) ([facility]) Pulmonary nodule Acute cystitis without hematuria Urinary tract infection without hematuria, site unspecified S overall feels well denies any chest pain shortness of breath wants to when she can go home. Exam: Gen: Comfortable, NAD CVS: RRR, S1, S2 present GI: Soft Non tender Chest: CTAB Psych: Appropriate mood and affect Neuro: Alert, oriented, No deficits. ECHO 06/20/22 Interpretation Summary Ejection Fraction = 60-65%. The left atrium is mildly dilated. There is trace tricuspid regurgitation. No aortic stenosis . Trace pulmonic valvular regurgitation. Anterior pericardial fat pad noted. Assessment and Plan Weakness/Fatigue Hx dementia -+ UTI on abx -per primary Elevated troponin - Mildly elevated without acute rise in delta - MPI nonischemic - on statin and beta-roz Hypertension -well controlled Hyperlipidemia -on statin Diabetes -A1C 8.3 -SSI -Benefit from diabetic education DVT LLE on eliquis Anemia Hgb 9.0 range, normocytic CKD -stable monitor closely Okay to discharge from Cardiology standpoint. William Juares MD, LOCATED [facility]IN [facility], [facility], [facility] [phone] 08/07/2022 9:37 AM RMATICS CONSULTANT * Marsha Marte NP - 08/06/2022 11:55 AM CST INPATIENT PROGRESS NOTE - HOSPITALIST Sixto Chakraborty is a 71 y.o. female at Hospital Day ( LOS: 5 days ) Chief Complaint Chief Complaint Patient presents with Altered Mental Status Subjective Interval History Patient seen and examined; chart reviewed. 08/06: pt sitting up in chair denied sob, chest pain. Stress test neg. BS elevated increase insulin 08/05: pt to undergo stress test today 08/04: bp better controlled today, BS trending down 08/03: Bp elevated , pt reports, I'm feeling bad she denied n/v/pain just reported doesn't feel good. Objective: Temp Av.8 ??C (98.2 ??F) Min: 36.6 ??C (97.9 ??F) Max: 37.2 ??C (99 ??F) BP Min: 115/65 Max: 145/75 Pulse Av.8 Min: 69 Max: 76 Resp Av.5 Min: 16 Max: 18 SpO2 Av.8 % Min: 96 % Max: 97 % Date 08/05/22 07 - 08/06/22 0659 08/06/22699 - 08/07/22 0659 Shift 0231-9090 1828-9755 24 Hour Total 2712-9657 2183-7062 24 Hour Total INTAKE P.O. 240 240 Shift Total(mL/kg) 240(3.3) 240(3.3) OUTPUT Urine(mL/kg/hr) 400 400 Shift Total(mL/kg) 400(5.5) 400(5.5) NET 240 240 -400 -400 Weight (kg) 72.6 72.6 72.6 72.6 72.6 72.6 Intake/Output Summary (Last 24 hours) at 08/06/2022 1155 Last data filed at 08/06/2022 1112 Gross per 24 hour Intake 240 ml Output 400 ml Net -160 ml Temp (24hrs), Av.8 ??C (98.2 ??F), Min:36.6 ??C (97.9 ??F), Max:37.2 ??C (99 ??F) PHYSICAL EXAMINATION General: Appears to be in no acute distress. HEENT: Head normocephalic, atraumatic. PERRLA. EOMI. Conjunctivae are clear. Sclerae are anicteric.Nares are patent. . Mucous membranes are moist. Neck: Supple. No lymphadenopathy, JVD. Lungs: Clear to auscultation. No crackle or wheezing noted. Cardiovascular: Normal S1, S2. Abdomen: Soft, nontender, nondistended with positive bowel sounds. obese Extremities: No clubbing, cyanosis or edema. Obese Neuro: alert and oriented Active Scheduled and PRN meds apixaban, 5 mg, Q12H atorvastatin, 20 mg, Daily benztropine, 1.5 mg, Nightly carvediloL, 6.25 mg, BID with meals (bkfst, dinner) cefTRIAXone, 2,000 mg, Q24H SOL famotidine, 10 mg, Nightly ferrous sulfate, 65 mg of elemental iron, Daily with breakfast [Held by Provider] furosemide, 40 mg, BID hydrALAZINE, 25 mg, TID insulin glargine, 15 Units, Nightly insulin lispro, 0-10 Units, TID with meals insulin lispro, 0-5 Units, Nightly [Held by Provider] losartan, 25 mg, Daily multivitamin with minerals, 1 tablet, Daily polyethylene glycol, 17 g, Daily pregabalin, 150 mg, Nightly risperiDONE, 2 mg, Nightly acetaminophen, 650 mg, Q4H PRN albuterol HFA, 2 puff, Q4H PRN (RT) dextrose, 15 g, Q15 Min PRN Or dextrose, 250 mL, Q15 Min PRN docusate sodium, 100 mg, BID PRN glucagon, 1 mg, Q30 Min PRN influenza quadrivalent [id number], 0.7 mL, During hospitalization ondansetron ODT, 4 mg, Q6H PRN Or ondansetron, 4 mg, Q6H PRN sodium chloride 0.9%, 10 mL, PRN Continuous Infusions: Lab Review Recent Labs Lab Units 08/06/22 0606 08/03/22 0635 08/02/22 0542 WBC K/cumm 9.0 10.0* 9.9 HEMOGLOBIN g/dL 8.0* 8.6* 9.0* HEMATOCRIT % 26.0* 27.7* 28.3* PLATELETS K/cumm 272 302 302 NEUTROS PCT % 65.5 55.0 61.7 LYMPHS PCT % 24.6 34.4 27.4 MONOS PCT % 7.2 7.7 8.1 EOS PCT % 2.2 2.3 2.2 Recent Labs Lab Units 08/06/22 0748 08/06/22 0606 08/06/22 0240 08/03/22 0748 08/03/22 0635 08/02/22 0826 08/02/22 0542 08/01/22 1841 08/01/22 1100 SODIUM mmol/L -- 139 -- -- 145 -- 141 -- 139 POTASSIUM PLASMA mmol/L -- 4.4 -- -- 4.1 -- 4.3 -- 4.6 CHLORIDE mmol/L -- 106 -- -- 108 -- 106 -- 102 CO2 mmol/L -- 22 -- -- 26 -- 26 -- 25 ANIONGAP mmol/L -- 11 -- -- 11 -- 9 -- 12 GLUCOSE mg/dL -- 242* -- -- 245* -- 222* -- 242* POC GLUCOSE MONITOR mg/dL 237* -- 200* < > -- < > -- < > -- BUN SERUM mg/dL -- 54* -- -- 50* -- 47* -- 45* CREATININE mg/dL -- 1.96* -- -- 1.82* -- 1.82* -- 1.96* CALCIUM mg/dL -- 8.9 -- -- 9.7 -- 9.2 -- 9.3 ALBUMIN g/dL -- -- -- -- -- -- -- -- 3.4* ALK PHOS Units/L -- -- -- -- -- -- -- -- 158* ALT Units/L -- -- -- -- -- -- -- -- 73* AST Units/L -- -- -- -- -- -- -- -- 65* BILIRUBIN TOTAL mg/dL -- -- -- -- -- -- -- -- <0.2 < > = values in this interval not displayed. Radiology: NM MPI SPECT (Rest and/or Stress) Multiple Studies Final Result 1. Normal exercise and rest myocardial perfusion. 2. Normal left ventricular size and systolic function. 3. Mild coronary artery calcifications. Dictated by: David Mcaculey MD The radiology attending physician has personally reviewed this study, and had reviewed and/or edited this written report and agrees with it. Electronically signed by: Wally Maxwell M.D. Stress Test for Myocardial Perfusion Final Result XR Chest 1 Vw Portable Final Result No active pulmonary disease. Electronically signed by: Alpesh Jaquez M.D. ECG: Results for orders placed during the hospital encounter of 08/01/22 ECG 12 lead Narrative Vent Rate: 74 bpm RR Interval: 808 msec AL Interval: 173 msec QRS Duration: 80 msec QT Interval: 425 msec QTC Interval: 452 msec P-R-T [place]: 64 - 17 - 16 degrees SINUS RHYTHM NORMAL ECG Electronically Signed By: Nathalia Velásquez MD Assessment/Plan Patient Active Problem List Diagnosis Date Noted Urinary tract infection without hematuria, site unspecified 08/01/2022 Acute cystitis without hematuria 06/19/2022 Pulmonary nodule 11/16/2021 Physical deconditioning 11/15/2021 Left leg DVT ([facility]) ([facility]) 11/15/2021 Pressure ulcer 10/07/2021 Anemia 09/07/2021 Volume overload 09/06/2021 Late onset Alzheimer's dementia without behavioral disturbance ([facility]) 08/19/2021 Delirium 08/07/2021 Encounter for Medicare annual wellness exam 01/08/2021 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 2 diabetes mellitus ([facility]) ([facility]) 12/11/2020 Dementia ([facility]) 10/10/2020 Encounter for psychiatric assessment 10/10/2020 Schizoaffective disorder, bipolar type ([facility]) ([facility]) 10/10/2020 Hyperlipidemia associated with type 2 diabetes mellitus ([facility]) 04/03/2020 Iron deficiency anemia 04/02/2020 GERD (gastroesophageal reflux disease) 04/02/2020 Amputation of toe of right foot ([facility]) ([facility]) 01/19/2020 Hypertension associated with diabetes ([facility]) 12/13/2019 Schizoaffective disorder, bipolar type ([facility]) ([facility]) 08/30/2019 Type 2 diabetes mellitus with diabetic neuropathy, with long-term current use of insulin ([facility]) ([facility]) 08/30/2019 Diabetic neuropathy ([facility]) Altered mental status, POA -With history of dementia -initially thought 2/2 urinary tract infection however urine cx insignificant growth -resolving -Continue to monitor closely UTI ruled out per cx DC Rocephin Diabetes type 2 with hyperglycemia -A1C 8.3 -cont with SSI , Lantus -BS elevated; adjust insulin to reflect home dosage. Increase lantus to 25 units and add prandial insulin Generalized weakness -PT OT Hypertension, -cont Hydralazine, Coreg Elevated troponins, associated with significant delta -cardiology following -stress test normal CKD 3 -Creatinine at baseline -Avoid nephrotoxins, initially held losartan and Lasix -Monitor renal function closely Hyperlipidemia -Continue statin Schizophrenia/depression/dementia -Continue Risperdal. Supportive care Parkinson -Continue Cogentin Diabetes neuropathy -Continue pregabalin Arthritis -Continue pain control p.r.n. Normocytic anemia, monitor Hb Mildly Elevated LFT's -Monitor labs VTE Prophylaxis Laboratory and imaging data independently reviewed by me Prior records and Care Everywhere if available were reviewed. Full Code CONSULTS IP CONSULT TO CARDIOLOGY IP CONSULT TO PHP MYSQL DEVELOPER Please note: This note was created in part using the [employer] Direct dictation system. Credit Analyst variances May occur . Despite proofreading, typographical and Grammatical errors may occur. 08/06/2022 11:55 AM [facility] [phone] RMATICS CONSULTANT RMATICS CONSULTANT * Isidro Hahn MD - 08/06/2022 9:54 AM CST [facility] - Cardiology [facility] Progress Note Admit Date: 08/01/2022 12:36 PM @HDAYS@ PCP: Cherelle Corcoran MD Patient seen and examined Chart , telemtry reviewed Symptoms Patient denies chest pain, dyspnea, palpitations, sweating or syncope. Data Vitals: 08/05/22 2035 08/06/22 0029 08/06/22 0428 08/06/22 0742 BP: 120/50 132/73 115/65 145/75 BP Location: Left arm Left arm Left arm Left arm Patient Position: HOB 30 degrees HOB 30 degrees HOB 30 degrees Lying Pulse: 72 69 73 76 Resp: 18 16 18 18 Temp: 36.6 ??C (97.9 ??F) 37.2 ??C (99 ??F) 36.7 ??C (98.1 ??F) 36.6 ??C (97.9 ??F) TempSrc: Oral Axillary Oral Oral SpO2: 97% 96% 97% 97% Weight: Height: Intake/Output Summary (Last 24 hours) at 08/06/2022 0955 Last data filed at 08/05/2022 1455 Gross per 24 hour Intake 240 ml Output -- Net 240 ml Lab Results Component Value Date WBC 9.0 08/06/2022 HGB 8.0 (L) 08/06/2022 HCT 26.0 (L) 08/06/2022 Lab Results Component Value Date SODIUM 139 08/06/2022 POTASSIUM 4.4 08/06/2022 CHLORIDE 106 08/06/2022 CO2 22 08/06/2022 CREATININE 1.96 (H) 08/06/2022 GLUCOSE 237 (H) 08/06/2022 GLUCOSE 242 (H) 08/06/2022 GLUCOSE 200 (H) 08/06/2022 GLUCOSE 260 (H) 08/05/2022 CALCIUM 8.9 08/06/2022 No results found for: PTT No results found for: PT No results found for: INR No results found for: BNP No components found for: TROPONIN No results found for: CHOL, TRIG, HDL, LDLCALC No results found for: ALBUMIN, ALKPHOS, ALT, AST No components found for: MAGMGDL No results found for: TSH No results found for: T3FREE No results found for: [id number] Pain Assessment: No/denies pain Meds MEDICATIONS FOR CURRENT ENCOUNTER: SCHEDULED MEDICATIONS: Scheduled Medications Medication Dose Route Frequency apixaban (ELIQUIS) tablet 5 mg 5 mg oral Q12H atorvastatin (LIPITOR) tablet 20 mg 20 mg oral Daily benztropine (COGENTIN) tablet 1.5 mg 1.5 mg oral Nightly carvediloL (COREG) tablet 6.25 mg 6.25 mg oral BID with meals (bkfst, dinner) cefTRIAXone (ROCEPHIN) 2,000 mg/20 mL in sterile water (premix) 2,000 mg 2,000 mg intravenous Q24H SOL famotidine (PEPCID) tablet 10 mg 10 mg oral Nightly ferrous sulfate delayed release tablet 65 mg of elemental iron 65 mg of elemental iron oral Daily with breakfast [Held by Provider] furosemide (LASIX) tablet 40 mg 40 mg oral BID hydrALAZINE (APRESOLINE) tablet 25 mg 25 mg oral TID insulin glargine (LANTUS, SEMGLEE) 100 unit/mL injection 15 Units 15 Units subcutaneous Nightly insulin lispro (HumaLOG, ADMELOG) 100 unit/mL injection 0-10 Units 0-10 Units subcutaneous TID withmeals insulin lispro (HumaLOG, ADMELOG) 100 unit/mL injection 0-5 Units 0-5 Units subcutaneous Nightly [Held by Provider] losartan (COZAAR) tablet 25 mg 25 mg oral Daily multivit xojbdqct-yddp-BA-calcium (THERA-M) tablet 1 tablet 1 tablet oral Daily polyethylene glycol (MIRALAX) packet 17 g 17 g oral Daily pregabalin (LYRICA) capsule 150 mg 150 mg oral Nightly risperiDONE (RisperDAL) tablet 2 mg 2 mg oral Nightly CONTINUOUS MEDICATIONS: Continuous Medications Medication Dose Last Rate PRN MEDICATIONS: PRN Medications Medication Dose Route Frequency Last Admin acetaminophen (TYLENOL) tablet 650 mg 650 mg oral Q4H PRN 650 mg at 08/04/22 2130 albuterol HFA (PROVENTIL HFA,VENTOLIN HFA,PROAIR HFA) 90 mcg/actuation inhaler 2 puff 2 puff inhalation Q4H PRN (RT) dextrose oral liquid liquid 15 g 15 g oral Q15 Min PRN Or dextrose (D10W) 10% bolus 250 mL 250 mL intravenous Q15 Min PRN docusate sodium (COLACE) capsule 100 mg 100 mg oral BID PRN glucagon injection 1 mg 1 mg intramuscular Q30 Min PRN influenza quadrivalent [id number] (FLUZONE HIGH DOSE) 240 mcg/0.7 mL vaccine (HIGH DOSE age 65 yearsand up) 0.7 mL 0.7 mL intramuscular During hospitalization ondansetron ODT (ZOFRAN-ODT) disintegrating tablet 4 mg 4 mg oral Q6H PRN Or ondansetron (ZOFRAN) injection 4 mg 4 mg intravenous Q6H PRN sodium chloride 0.9% flush 10 mL 10 mL intravenous PRN 10 mL at 08/05/22 1252 No Known Allergies Review of Systems: All systems were reviewed. Pertinent positives are mentioned above. Exam General appearance: alert, cooperative, no distress Neck: No JVD. No carotid Bruit Chest: Decreased air entry bilaterally,No added sounds Cardiovascular: regular rate, rhythm, normal S1 and S2, without rub, gallops or murmur Abdomen: soft without mass, non-tender, with normal bowel sounds Extremities: no clubbing, cyanosis or edema. Peripheral pulse palpable Assessment /Plan Weakness/Fatigue Hx dementia -+ UTI on abx -per primary Elevated troponin -Mildly elevated without acute rise in delta - MPI for risk stratificaiton done is within normal limits results discussed with patient- not on aspirin due to apixaban use currently on statin and beta-roz Hypertension -well controlled Hyperlipidemia -on statin Diabetes -A1C 8.3 -SSI -Benefit from diabetic education DVT LLE on eliquis Anemia Hgb 9.0 range, normocytic CKD -stable monitor closely Isidro Hahn MD RMATICS CONSULTANT * Maddi Morris, PT - 08/05/2022 2:04 PM CST Physical Therapy PT PROGRESS NOTE Sixto Chakraborty 71 y.o. 1950 Past Medical History: Diagnosis Date Arthritis Depression Diabetic neuropathy (HCC) Hyperlipidemia Hypertension Schizophrenia ([facility]) Type 2 diabetes mellitus (HCC) Past Surgical History: Procedure Laterality Date SECTION Right right foot TOE AMPUTATION Right 01/06/2020 4th toe amp/ foot debridement/ Dr. Anat Pelayo Patient Active Problem List Diagnosis Schizoaffective disorder, bipolar type ([facility]) ([facility]) Diabetic neuropathy (HCC) Type 2 diabetes mellitus with diabetic neuropathy, with long-term current use of insulin ([facility]) ([facility]) Hypertension associated with diabetes ([facility]) Amputation of toe of right foot ([facility]) ([facility]) Iron deficiency anemia GERD (gastroesophageal reflux disease) Hyperlipidemia associated with type 2 diabetes mellitus (HCC) Dementia ([facility]) Encounter for psychiatric assessment Schizoaffective disorder, bipolar type ([facility]/HCC) ([facility]) 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 2 diabetes mellitus ([facility]) ([facility]) Encounter for Medicare annual wellness exam Delirium Late onset Alzheimer's dementia without behavioral disturbance ([facility]) Volume overload Anemia Pressure ulcer Physical deconditioning Left leg DVT ([facility]) (HCC) Pulmonary nodule Acute cystitis without hematuria Urinary tract infection without hematuria, site unspecified TIME IN: 1404 TIME OUT: 1430 SUBJECTIVE Yeah I want to walk! MENTAL STATUS/ORIENTATION: Alert, awake, and participatory in therapy throughout session. Pleasant and motivated throughout session. PAIN: Pre-therapy pain level: 0/10 Pain location: - Pain intervention: - Post-therapy pain level/response to intervention: 0/10 OBJECTIVE PRECAUTIONS: elopement, fall APPEARANCE/POSTURE: sitting upright in recliner, on room air MOBILITY DOCUMENTATION: Bed Mobility/Transfers: SPV sit to stand from recliner. Antoni recliner to bed transfer, Antoni sit to supine Gait: x250 ft with w/w and CG assist. Pt with decreased step length and increased distance from walker during turns TREATMENT: -Seated good day exercises x 10 reps each APPEARANCE/POSTURE (end of session): EDUCATION: gait training, transfer training, seated exercises RESPONSE TO EDUCATION: demonstrated understanding and needs reinforcement ASSESSMENT Activity tolerance/response to P.T.: Pt tolerated session well with good participation and no adverse effects throughout PT treatment. Significantly improved cognitive status and performance from last session. Barriers to learning: Physical Barriers to discharge: Decreased endurance and Lower extremity weakness Patient continues progressing toward previously set goals which remain appropriate at this time. PLAN Patient to be seen for P.T. 3-5x/wk to address previously established deficits and goals. DISCHARGE LOCATION RECOMMENDATIONS: Home with HHPT, Home with family, home with 24/7 assist If this is the last note, please consider this the discharge summary. RMATICS CONSULTANT * Carolin Herr RN - 08/05/2022 12:05 PM CST IMM given and reviewed with patient daughter Albert over the phone, patient is not alert and oriented. Verbalized understanding. Copy left at the bedside for daughter to review later and signed copy placed in the patients chart. 08/05/22 1203 Communications Important Message from Medicare notice given to patient? Yes Carolin Herr glove cuffer [phone] RMATICS CONSULTANT * Maddi Morris PT - 08/05/2022 11:01 AM CST Physical Therapy Missed Visit Pt [facility] for cardiac stress test. PT will continue to follow and re-attempt as availability allows. Maddi Morris, PT 08/05/22 11:02 AM RMATICS CONSULTANT * Sara Thornton, OT - 08/05/2022 10:33 AM CST Occupational Therapy Patient Name: Sixto Chakraborty Date of : 1950 Age / Sex: 71 y.o. / female Room: [place] [id number] Admit Date: 08/01/2022 Date of Service: 08/05/22 Time In: 1234 Time Out: 1314 Primary Diagnosis: Urinary tract infection without hematuria, site unspecified HPI: Patient is a 71 y.o. female with past medical history of hyperlipidemia, hypertension, diabetes type 2, schizophrenia, dementia, Parkinson diabetes neuropathy, depression and arthritis who presented to the emergency room with complaints of generalized weakness, fatigue and hypotension. Suspected UTI upon admission. Notable History: See Below Past Medical History: Diagnosis Date Arthritis Depression Diabetic neuropathy (HCC) Hyperlipidemia Hypertension Schizophrenia (HCC) Type 2 diabetes mellitus (HCC) Past Surgical History: Procedure Laterality Date SECTION Right right foot TOE AMPUTATION Right 01/06/2020 4th toe amp/ foot debridement/ Dr. Anat Pelayo Precautions (Including Weight-Bearing): Fall risk and Elopement risk Caregiver Present for Session (Yes or No): No SUBJECTIVE: Patient Comment: I need to go to the bathroom Pain Assessment: Pre-therapy pain level: 0 / 10 Pain location: No pain - Location N/A Pain intervention(s): No pain - Intervention N/A Post-therapy pain level: 0 / 10 Pain scale used: 0-10 SCALE Prior Living Environment and Level of Function: (Pt is a questionable historian) LIVES WITH: daughter LIVING ENVIRONMENT: 1 story house with no LIANA PRIOR LEVEL OF FUNCTION: Reports indep IADLs other than daughter assists with clean up , Indep BADLs EQUIPMENT OWNED: cane EQUIPMENT USED: cane SOCIAL SUPPORTS: daughter PATIENT/FAMILY GOAL: none stated OBJECTIVE: Appearance: Presentation upon OT arrival: Patient Sitting in bedside recliner Presentation upon OT departure: Patient Sitting in bedside recliner Bed / chair alarm in place and activated upon OT departure: Yes Call light within arms reach of patient at end of session: Yes Completed patient handoff and notified FINANCIAL INVESTMENT MANAGER / RN, of patient's location and functional status upon completion of session. Vital Signs: Pt with no complaints of dizziness, lightheadedness or SOB. Cognitive / Perceptual Assessment: A&Ox2--disoriented to time, single step command follow 100%, pleasant, cooperative UE ROM / Strength / Coordination: (A)ROM - Right: WFL except shoulder flex/abd ~80 (2+/5) Strength - Right: 4/5 (A)ROM - Left: WFL except shoulder flex/abd ~80 (2+/5) Strength - Left: 4/5 Hand Dominance: Right Reports Analysis Manager Strength (Right) good Reports Analysis Manager Strength (Left): good Right Serial Opposition: Decreased rate, Decreased rhythm, and Decreased accuracy Left Serial Opposition: Decreased rate, Decreased rhythm, and Decreased accuracy Balance: Static sitting balance: good Dynamic sitting balance: good Static standing balance: good- Dynamic standing balance: Mobility / Transfers: Bed mobility (Components & Assistance): not tested Transfer(s): sit>stand sba, ambulates functional household distance with cg w/o device, ambulatory toilet transfer sba Activities of Daily Living / Living Skills: UE dressing: sba to don gown as robe Lower Body Dressing: Mod A to doff/don socks, mod A to don underwear Other: Sba for shannon care ASSESSMENT: Rehab Potential (Prognosis): good Problem List: Patient has impairments including: Decreased UE ROM , Decreased UE strength, Decreased coordination, Decreased balance, Decreased mobility, Decreased endurance, Decreased cognition, Decreased safety awareness, Long- standing deficits, and Decreased ADL independence. Barriers to Discharge: Cognitive deficit, Limited safety awareness, Limited insight into deficits, and Decreased endurance PLAN: OT Discharge Recommendations this date: OT RECOMMENDATIONS: OT Recommendation: Home with family, Home Health OT, Home with 24 hour supervision Patient at risk for: Additional recommendation comments: Justification of discharge recommendations flow sheet completed: Yes Frequency of therapy:OT Frequency during current admission: 3-5x/wk Intervention / Education needs: ADL training, Compensatory ADL strategies, Adaptive equipment education, Durable medical equipment education, Balance activities, Functional transfer training, Safety education, Precautions education, Pursed lip breathing / Relaxation techniques, UE home exercise prog adams education, Family training as appropriate, Cognitive re-orientation, and Energy conservation techniques Education provided: Patient has been educated on Role of OT, OT plan of care, and ADL training. Individual(s) verbalized understanding. Short Term Goals / Care Plan: Multi-Disciplinary Problems (from Occupational Therapy) Active Problems Problem: OT Misc Start Date: 08/05/22 Goal Start Date Expected End Date End Date OT STG - Mis 1 08/05/22 08/12/22 -- Goal Details: Patient will complete UE/LE dress with high/low item retrieval with sba one time. Goal Start Date Expected End Date End Date OT STG - Mis 2 08/05/22 08/12/22 -- Goal Details: Patient will complete toilet transfer with sba one time. Goal Start Date Expected End Date End Date OT STG - Mis 3 08/05/22 08/12/22 -- Goal Details: Patient will complete grooming, 2 tasks with sba one time. Goal Start Date Expected End Date End Date OT [facility] - Mis 4 08/05/22 08/12/22 -- Goal Details: Patient will complete HEP with sba one time to increase tolerance for ADL's. If this is the last note, consider this the discharge summary aSra Mcdonnell??PAUL Curry/Nadine 08/05/22 RMATICS CONSULTANT * William Juares MD - 08/05/2022 9:43 AM CST Daily Progress [facility] Cardiology OBJECTIVE: Past Medical History: Diagnosis Date Arthritis Depression Diabetic neuropathy (HCC) Hyperlipidemia Hypertension Schizophrenia (HCC) Type 2 diabetes mellitus (HCC) Family History Problem Relation Age of Onset Stomach cancer Father Scheduled Medications Medication Dose Route Frequency apixaban (ELIQUIS) tablet 5 mg 5 mg oral Q12H atorvastatin (LIPITOR) tablet 20 mg 20 mg oral Daily benztropine (COGENTIN) tablet 1.5 mg 1.5 mg oral Nightly carvediloL (COREG) tablet 6.25 mg 6.25 mg oral BID with meals (bkfst, dinner) cefTRIAXone (ROCEPHIN) 2,000 mg/20 mL in sterile water (premix) 2,000 mg 2,000 mg intravenous Q24H SOL famotidine (PEPCID) tablet 10 mg 10 mg oral Nightly ferrous sulfate delayed release tablet 65 mg of elemental iron 65 mg of elemental iron oral Daily with breakfast [Held by Provider] furosemide (LASIX) tablet 40 mg 40 mg oral BID hydrALAZINE (APRESOLINE) tablet 25 mg 25 mg oral TID insulin glargine (LANTUS, SEMGLEE) 100 unit/mL injection 15 Units 15 Units subcutaneous Nightly insulin lispro (HumaLOG, ADMELOG) 100 unit/mL injection 0-10 Units 0-10 Units subcutaneous TID withmeals insulin lispro (HumaLOG, ADMELOG) 100 unit/mL injection 0-5 Units 0-5 Units subcutaneous Nightly [Held by Provider] losartan (COZAAR) tablet 25 mg 25 mg oral Daily multivit watmgmic-iyid-AA-calcium (THERA-M) tablet 1 tablet 1 tablet oral Daily polyethylene glycol (MIRALAX) packet 17 g 17 g oral Daily pregabalin (LYRICA) capsule 150 mg 150 mg oral Nightly risperiDONE (RisperDAL) tablet 2 mg 2 mg oral Nightly Recent Labs Lab Units 08/03/22 0635 08/02/22 0542 08/01/22 1100 WBC K/cumm 10.0* 9.9 9.5 HEMOGLOBIN g/dL 8.6* 9.0* 9.2* HEMATOCRIT % 27.7* 28.3* 29.0* PLATELETS K/cumm 302 302 316 Recent Labs Lab Units 08/05/22 0741 08/05/22 0147 08/04/22 2127 08/04/22 1708 08/04/22 1206 08/03/22 0748 08/03/22 0635 08/02/22 0826 08/02/22 0542 08/01/22 1841 08/01/22 1100 SODIUM mmol/L -- -- -- -- -- -- 145 -- 141 -- 139 POTASSIUM PLASMA mmol/L -- -- -- -- -- -- 4.1 -- 4.3 -- 4.6 CHLORIDE mmol/L -- -- -- -- -- -- 108 -- 106 -- 102 CO2 mmol/L -- -- -- -- -- -- 26 -- 26 -- 25 ANIONGAP mmol/L -- -- -- -- -- -- 11 -- 9 -- 12 GLUCOSE mg/dL -- -- -- -- -- -- 245* -- 222* -- 242* POC GLUCOSE MONITOR mg/dL 233* 210* 274* 277* 177 < > -- < > -- < > -- BUN SERUM mg/dL -- -- -- -- -- -- 50* -- 47* -- 45* CREATININE mg/dL -- -- -- -- -- -- 1.82* -- 1.82* -- 1.96* CALCIUM mg/dL -- -- -- -- -- -- 9.7 -- 9.2 -- 9.3 ALBUMIN g/dL -- -- -- -- -- -- -- -- -- -- 3.4* ALK PHOS Units/L -- -- -- -- -- -- -- -- -- -- 158* ALT Units/L -- -- -- -- -- -- -- -- -- -- 73* AST Units/L -- -- -- -- -- -- -- -- -- -- 65* BILIRUBIN TOTAL mg/dL -- -- -- -- -- -- -- -- -- -- <0.2 < > = values in this interval not displayed. Intake/Output Summary (Last 24 hours) at 08/05/2022 0943 Last data filed at 08/04/2022 1500 Gross per 24 hour Intake 120 ml Output -- Net 120 ml Vitals: 08/04/22 1942 08/04/22 2130 08/04/22 2350 08/05/22 0405 BP: 141/53 146/62 135/60 110/47 BP Location: Pulse: 77 81 72 73 Resp: 20 18 20 Temp: 36.7 ??C (98.1 ??F) 36.8 ??C (98.2 ??F) 36.7 ??C (98.1 ??F) TempSrc: SpO2: 97% 95% 95% Weight: Height: ASSESSMENT/PLAN: Patient Active Problem List Diagnosis Schizoaffective disorder, bipolar type (CMS/HCC) (HCC) Diabetic neuropathy (HCC) Type 2 diabetes mellitus with diabetic neuropathy, with long-term current use of insulin ([facility]/HCC) (HCC) Hypertension associated with diabetes (HCC) Amputation of toe of right foot ([facility]/HCC) ([facility]) Iron deficiency anemia GERD (gastroesophageal reflux disease) Hyperlipidemia associated with type 2 diabetes mellitus (HCC) Dementia (HCC) Encounter for psychiatric assessment Schizoaffective disorder, bipolar type ([facility]) ([facility]) 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 2 diabetes mellitus ([facility]) ([facility]) Encounter for Medicare annual wellness exam Delirium Late onset Alzheimer's dementia without behavioral disturbance ([facility]) Volume overload Anemia Pressure ulcer Physical deconditioning Left leg DVT ([facility]) ([facility]) Pulmonary nodule Acute cystitis without hematuria Urinary tract infection without hematuria, site unspecified S had MPI today, no CP. Exam: Gen: Comfortable, NAD CVS: RRR, S1, S2 present GI: Soft Non tender Chest: CTAB Psych: Appropriate mood and affect Neuro: Alert, oriented, No deficits. ECHO 06/20/22 Interpretation Summary Ejection Fraction = 60-65%. The left atrium is mildly dilated. There is trace tricuspid regurgitation. No aortic stenosis . Trace pulmonic valvular regurgitation. Anterior pericardial fat pad noted. Assessment and Plan Weakness/Fatigue Hx dementia -+ UTI on abx -per primary Elevated troponin -Mildly elevated without acute rise in delta - MPI for risk stratificaiton done today results pending, will follow up - not on aspirin due to apixaban use currently on statin and beta-roz Hypertension -well controlled now continue monitor may consider resuming Lasix tomorrow Hyperlipidemia -on statin Diabetes -A1C 8.3 -SSI -Benefit from diabetic education DVT LLE on eliquis Anemia Hgb 9.0 range, normocytic CKD -stable monitor closely William Juares MD, LOCATED [facility]IN [facility], [facility], [facility] [phone] 08/05/2022 9:43 AM RMATICS CONSULTANT * Marsha Marte NP - 08/05/2022 9:05 AM CST INPATIENT PROGRESS NOTE - HOSPITALIST Sixto Chakraborty is a 71 y.o. female at Hospital Day ( LOS: 4 days ) Chief Complaint Chief Complaint Patient presents with Altered Mental Status Subjective Interval History Patient seen and examined; chart reviewed. 08/05: pt to undergo stress test today 08/04: bp better controlled today, BS trending down 08/03: Bp elevated , pt reports, I'm feeling bad she denied n/v/pain just reported doesn't feel good. Objective: Temp Av.6 ??C (97.8 ??F) Min: 36.2 ??C (97.2 ??F) Max: 36.8 ??C (98.2 ??F) BP Min: 110/47 Max: 150/63 Pulse Av Min: 72 Max: 81 Resp Av.8 Min: 18 Max: 20 SpO2 Av.8 % Min: 95 % Max: 100 % Date 08/04/22699 - 08/05/22 0659 08/05/22699 - 08/06/22 0659 Shift 3933-5236 3740-4632 24 Hour Total 6737-5182 5041-6009 24 Hour Total INTAKE P.O. 360 360 Shift Total(mL/kg) 360(5) 360(5) OUTPUT Shift Total(mL/kg) NET 360 360 Weight (kg) 72.6 72.6 72.6 72.6 72.6 72.6 Intake/Output Summary (Last 24 hours) at 08/05/2022 0905 Last data filed at 08/04/2022 1500 Gross per 24 hour Intake 120 ml Output -- Net 120 ml Temp (24hrs), Av.6 ??C (97.8 ??F), Min:36.2 ??C (97.2 ??F), Max:36.8 ??C (98.2 ??F) PHYSICAL EXAMINATION General: Appears to be in no acute distress. HEENT: Head normocephalic, atraumatic. PERRLA. EOMI. Conjunctivae are clear. Sclerae are anicteric.Nares are patent. . Mucous membranes are moist. Neck: Supple. No lymphadenopathy, JVD. Lungs: Clear to auscultation. No crackle or wheezing noted. Cardiovascular: Normal S1, S2. Abdomen: Soft, nontender, nondistended with positive bowel sounds. Extremities: No clubbing, cyanosis or edema. Obese Neuro: sleeping Active Scheduled and PRN meds apixaban, 5 mg, Q12H atorvastatin, 20 mg, Daily benztropine, 1.5 mg, Nightly carvediloL, 6.25 mg, BID with meals (bkfst, dinner) cefTRIAXone, 2,000 mg, Q24H SOL famotidine, 10 mg, Nightly ferrous sulfate, 65 mg of elemental iron, Daily with breakfast [Held by Provider] furosemide, 40 mg, BID hydrALAZINE, 25 mg, TID insulin glargine, 15 Units, Nightly insulin lispro, 0-10 Units, TID with meals insulin lispro, 0-5 Units, Nightly [Held by Provider] losartan, 25 mg, Daily multivitamin with minerals, 1 tablet, Daily polyethylene glycol, 17 g, Daily pregabalin, 150 mg, Nightly risperiDONE, 2 mg, Nightly acetaminophen, 650 mg, Q4H PRN albuterol HFA, 2 puff, Q4H PRN (RT) dextrose, 15 g, Q15 Min PRN Or dextrose, 250 mL, Q15 Min PRN docusate sodium, 100 mg, BID PRN glucagon, 1 mg, Q30 Min PRN influenza quadrivalent [id number], 0.7 mL, During hospitalization ondansetron ODT, 4 mg, Q6H PRN Or ondansetron, 4 mg, Q6H PRN Continuous Infusions: Lab Review Recent Labs Lab Units 08/03/22 0635 08/02/22 0542 08/01/22 1100 WBC K/cumm 10.0* 9.9 9.5 HEMOGLOBIN g/dL 8.6* 9.0* 9.2* HEMATOCRIT % 27.7* 28.3* 29.0* PLATELETS K/cumm 302 302 316 NEUTROS PCT % 55.0 61.7 68.0 LYMPHS PCT % 34.4 27.4 23.4 MONOS PCT % 7.7 8.1 6.6 EOS PCT % 2.3 2.2 1.3 Recent Labs Lab Units 08/05/22 0741 08/05/22 0147 08/04/22 2127 08/03/22 0748 08/03/22 0635 08/02/22 0826 08/02/22 0542 08/01/22 1841 08/01/22 1100 SODIUM mmol/L -- -- -- -- 145 -- 141 -- 139 POTASSIUM PLASMA mmol/L -- -- -- -- 4.1 -- 4.3 -- 4.6 CHLORIDE mmol/L -- -- -- -- 108 -- 106 -- 102 CO2 mmol/L -- -- -- -- 26 -- 26 -- 25 ANIONGAP mmol/L -- -- -- -- 11 -- 9 -- 12 GLUCOSE mg/dL -- -- -- -- 245* -- 222* -- 242* POC GLUCOSE MONITOR mg/dL 233* 210* 274* < > -- < > -- < > -- BUN SERUM mg/dL -- -- -- -- 50* -- 47* -- 45* CREATININE mg/dL -- -- -- -- 1.82* -- 1.82* -- 1.96* CALCIUM mg/dL -- -- -- -- 9.7 -- 9.2 -- 9.3 ALBUMIN g/dL -- -- -- -- -- -- -- -- 3.4* ALK PHOS Units/L -- -- -- -- -- -- -- -- 158* ALT Units/L -- -- -- -- -- -- -- -- 73* AST Units/L -- -- -- -- -- -- -- -- 65* BILIRUBIN TOTAL mg/dL -- -- -- -- -- -- -- -- <0.2 < > = values in this interval not displayed. Radiology: XR Chest 1 Vw Portable Final Result No active pulmonary disease. Electronically signed by: Cinthia Mcginnis MPI SPECT (Rest and/or Stress) Multiple Studies (Results Pending) Stress Test for Myocardial Perfusion (Results Pending) ECG: Results for orders placed during the hospital encounter of 08/01/22 ECG 12 lead Narrative Vent Rate: 74 bpm RR Interval: 808 msec AL Interval: 173 msec QRS Duration: 80 msec QT Interval: 425 msec QTC Interval: 452 msec P-R-T [place]: 64 - 17 - 16 degrees SINUS RHYTHM NORMAL ECG Electronically Signed By: Nathalia Velásquez MD Assessment/Plan Patient Active Problem List Diagnosis Date Noted Urinary tract infection without hematuria, site unspecified 08/01/2022 Acute cystitis without hematuria 06/19/2022 Pulmonary nodule 11/16/2021 Physical deconditioning 11/15/2021 Left leg DVT ([facility]) ([facility]) 11/15/2021 Pressure ulcer 10/07/2021 Anemia 09/07/2021 Volume overload 09/06/2021 Late onset Alzheimer's dementia without behavioral disturbance ([facility] [facility]) 08/19/2021 Delirium 08/07/2021 Encounter for Medicare annual wellness exam 01/08/2021 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 2 diabetes mellitus ([facility] ([facility]) 12/11/2020 Dementia ([facility]) 10/10/2020 Encounter for psychiatric assessment 10/10/2020 Schizoaffective disorder, bipolar type ([facility] ([facility]) 10/10/2020 Hyperlipidemia associated with type 2 diabetes mellitus ([facility]) 04/03/2020 Iron deficiency anemia 04/02/2020 GERD (gastroesophageal reflux disease) 04/02/2020 Amputation of toe of right foot ([facility] ([facility]) 01/19/2020 Hypertension associated with diabetes ([facility]) 12/13/2019 Schizoaffective disorder, bipolar type ([facility]) ([facility]) 08/30/2019 Type 2 diabetes mellitus with diabetic neuropathy, with long-term current use of insulin ([facility]) ([facility]) 08/30/2019 Diabetic neuropathy ([facility]) Altered mental status, POA -With history of dementia -Likely 2/2 urinary tract infection -resolving -Continue to monitor closely Suspect UTI on admission, cont with Rocephin Diabetes type 2 with hyperglycemia -A1C 8.3 -cont with SSI , Lantus Generalized weakness -PT OT Hypertension, hod on Losartan -add edHydralazine -coreg increased by cards and losartan resumed Elevated troponins, associated with significant delta -cardiology following -stress test today CKD 3 -Creatinine at baseline -Avoid nephrotoxins, initially losartan and Lasix -Monitor renal function closely Hyperlipidemia -Continue statin Schizophrenia/depression/dementia -Continue Risperdal. Supportive care Parkinson -Continue Cogentin Diabetes neuropathy -Continue pregabalin Arthritis -Continue pain control p.r.n. Normocytic anemia, monitor Hb Mildly Elevated LFT's -Monitor labs VTE Prophylaxis Laboratory and imaging data independently reviewed by me Prior records and Care Everywhere if available were reviewed. Full Code CONSULTS IP CONSULT TO CARDIOLOGY IP CONSULT TO PHP MYSQL DEVELOPER Please note: This note was created in part using the [employer] Direct dictation system. Credit Analyst variances May occur . Despite proofreading, typographical and Grammatical errors may occur. 08/05/2022 9:05 AM [facility] [phone] Carolin Ramirez RN - 08/04/2022 2:43 PM CST Attempted to complete initial d/c planning. Patient AOx2, family not at bedside and no answer when attempted to call. Will re-attempt next shift. Carolin Herr RN Case Manager [phone] RMATICS CONSULTANT * Maddi Morris, LULI - 08/04/2022 11:15 AM CST Physical Therapy INITIAL EVALUATION PATIENT'S NAME:Sixto Chakraborty :1950 AGE:71 y.o. ROOM:[place] [id number] TIME IN:1127 TIME OUT:1159 CURRENT DIAGNOSIS AND HOSPITAL COURSE: Patient is a 71 y.o. female with past medical history of hyperlipidemia, hypertension, diabetes type 2, schizophrenia, dementia, Parkinson diabetes neuropathy, depression and arthritis who presented to the emergency room with complaints of generalized weakness, fatigue and hypotension. Suspected UTI upon admission. Patient Active Problem List Diagnosis Schizoaffective disorder, bipolar type (CMS/HCC) (HCC) Diabetic neuropathy (HCC) Type 2 diabetes mellitus with diabetic neuropathy, with long-term current use of insulin (CMS/HCC) (HCC) Hypertension associated with diabetes (HCC) Amputation of toe of right foot (CMS/HCC) (HCC) Iron deficiency anemia GERD (gastroesophageal reflux disease) Hyperlipidemia associated with type 2 diabetes mellitus ([facility]) Dementia ([facility]) Encounter for psychiatric assessment Schizoaffective disorder, bipolar type ([facility] ([facility] 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 2 diabetes mellitus ([facility] ([facility]) Encounter for Medicare annual wellness exam Delirium Late onset Alzheimer's dementia without behavioral disturbance ([facility]) Volume overload Anemia Pressure ulcer Physical deconditioning Left leg DVT ([facility] ([facility]) Pulmonary nodule Acute cystitis without hematuria Urinary tract infection without hematuria, site unspecified Past Medical History: Diagnosis Date Arthritis Depression Diabetic neuropathy ([facility]) Hyperlipidemia Hypertension Schizophrenia ([facility]) Type 2 diabetes mellitus ([facility]) Past Surgical History: Procedure Laterality Date SECTION Right right foot TOE AMPUTATION Right 01/06/2020 4th toe amp/ foot debridement/ Dr. Anat Pelayo SUBJECTIVE - Pt lethargic, unable to give thorough subjective at this time. LIVES WITH: daughter LIVING ENVIRONMENT: [address] with no LIANA PRIOR LEVEL OF FUNCTION: Reports indep IADLs other than daughter assists with clean up , Indep BADLs EQUIPMENT OWNED: cane EQUIPMENT USED: cane SOCIAL SUPPORTS: daughter PATIENT/FAMILY GOAL: none stated MENTAL STATUS/ORIENTATION: Alert and Oriented to x 4, lethargic OBJECTIVE PRECAUTIONS: elopement, fall APPEARANCE/POSTURE: supine in bed, on room air VITAL SIGNS: Post-activity BP: 143/60 mmhg Post-activity heart rate: 75 bpm Post-activity O2 sat: 98% PAIN: Pre-therapy pain level: 0/10 Pain location: - Pain intervention: - Post-therapy pain level/response to intervention: 0/10 LE ASSESSMENTS: Right LE ROM: decreased ankle mobility, -10 deg from neutral DF (PROM) Left LE ROM: decreased ankle mobility, -10 deg from neutral DF (PROM) Pt with decreased command following (25%) complicating MMT testing. Right LE strength: at least 3/5 throughout Left LE strength: at least 3/5 throughout MOBILITY: Bed mobility: Antoni supine to sitting EOB. Antoni to sit EOB x 8 min Transfers: Antoni sit to stand with w/w. Antoni to maintain static standing balance with UE support on w/w. Ambulation: Distance: 15 ft + 15 ft Assistive device: w/w Level of assist: Anotni, directional assist Deviations: Pt closes her eyes during gait despite cues to keep eyes open. Pt with decreased lanny, colliding with objects on the L, forward trunk flexion Stairs: NT Balance/Special Tests: Static sitting balance: fair+ Dynamic sitting balance: fair+ Static standing balance: fair+ Dynamic standing balance: fair Basic Mobility - 6 Click How much [...] Total Total 6 Click Score (range 6-24): 16 6 click interpretation: AM-PAC 6 Click scores > 18 = Likely home discharge AM-PAC 6 Click scores < 18 = Likely require inpatient rehab or halfway placement at discharge APPEARANCE/POSTURE (end of session): Pt sitting upright in chair with PCT in room and RN aware of Pt position and functional status EDUCATION: Reason for visit, PT Role, PT POC RESPONSE TO EDUCATION: verbalizes understanding and needs reinforcement ASSESSMENT PROBLEM LIST: decreased functional mobility, LE weakness, BARRIERS TO LEARNING: Physical and Cognitive BARRIERS TO DISCHARGE: Confusion, Cognitive deficit, Decreased endurance, Lower extremity weakness,and Long standing deficits REHAB POTENTIAL/PROGNOSIS: good PLAN DISCHARGE LOCATION RECOMMENDATIONS: RETIREMENT FACILITY TREATMENT PLAN/INTERVENTIONS: Acute PT is indicated to address the impairments and activity limitations outlined above. FREQUENCY: 3-5x/week EQUIPMENT RECOMMENDATIONS: w/w (unclear if Pt owns one already) Refer to multi-disciplinary care plan section for PT specific goals. If this is the last note, please consider this the discharge summary. Multi-Disciplinary Problems (from Physical Therapy) Active Problems Problem: PT Misc Start Date: 08/04/22 Goal Start Date Expected End Date End Date Pt will demonstrate bed mobility mod indep. 08/04/22 08/11/22 -- Goal Start Date Expected End Date End Date Pt will demonstrate transfers with Mod I. 08/04/22 08/11/22 -- Goal Start Date Expected End Date End Date Pt will ambulate x 80 ft with LRAD and SPV. 08/04/22 08/11/22 -- Goal Start Date Expected End Date End Date Pt will navigate a curb/step with CG assist and LRAD. 08/04/22 08/11/22 -- Goal Start Date Expected End Date End Date Pt will demonstrate HEP for LE strength, mobility, and endurance with Antoni. 08/04/22 08/11/22 -- RMATICS CONSULTANT * Marsha Marte, OPERATOR [employer] - 08/04/2022 10:15 AM CST INPATIENT PROGRESS NOTE - HOSPITALIST Sixto Chakraborty is a 71 y.o. female at Hospital Day ( LOS: 3 days ) Chief Complaint Chief Complaint Patient presents with Altered Mental Status Subjective Interval History Patient seen and examined; chart reviewed. 08/04: bp better controlled today, BS trending down 08/03: Bp elevated , pt reports, I'm feeling bad she denied n/v/pain just reported doesn't feel good. Objective: Temp Av.8 ??C (98.2 ??F) Min: 36.7 ??C (98 ??F) Max: 36.9 ??C (98.4 ??F) BP Min: 110/59 Max: 176/6 Pulse Av.8 Min: 67 Max: 78 Resp Av.5 Min: 16 Max: 18 SpO2 Av.5 % Min: 93 % Max: 100 % Date 08/03/22699 - 08/04/2265808/04/22699 - 08/05/22 0659 Shift 8338-6719 9969-8026 24 Hour Total 9985-9588 9505-3732 24 Hour Total INTAKE P.O. 240 240 Shift Total(mL/kg) 240(3.3) 240(3.3) OUTPUT Shift Total(mL/kg) NET 240 240 Weight (kg) 72.6 72.6 72.6 72.6 72.6 72.6 Intake/Output Summary (Last 24 hours) at 08/04/2022 1015 Last data filed at 08/03/2022 1510 Gross per 24 hour Intake 240 ml Output -- Net 240 ml Temp (24hrs), Av.8 ??C (98.2 ??F), Min:36.7 ??C (98 ??F), Max:36.9 ??C (98.4 ??F) PHYSICAL EXAMINATION General: Appears to be in no acute distress. HEENT: Head normocephalic, atraumatic. PERRLA. EOMI. Conjunctivae are clear. Sclerae are anicteric.Nares are patent. . Mucous membranes are moist. Neck: Supple. No lymphadenopathy, JVD. Lungs: Clear to auscultation. No crackle or wheezing noted. Cardiovascular: Normal S1, S2. Abdomen: Soft, nontender, nondistended with positive bowel sounds. Extremities: No clubbing, cyanosis or edema. Obese Neuro: sleeping Active Scheduled and PRN meds apixaban, 5 mg, Q12H atorvastatin, 20 mg, Daily benztropine, 1.5 mg, Nightly carvediloL, 6.25 mg, BID with meals (bkfst, dinner) cefTRIAXone, 2,000 mg, Q24H SOL famotidine, 10 mg, Nightly ferrous sulfate, 65 mg of elemental iron, Daily with breakfast [Held by Provider] furosemide, 40 mg, BID hydrALAZINE, 25 mg, TID insulin glargine, 15 Units, Nightly insulin lispro, 0-10 Units, TID with meals insulin lispro, 0-5 Units, Nightly [Held by Provider] losartan, 25 mg, Daily multivitamin with minerals, 1 tablet, Daily polyethylene glycol, 17 g, Daily pregabalin, 150 mg, Nightly risperiDONE, 2 mg, Nightly acetaminophen, 650 mg, Q4H PRN albuterol HFA, 2 puff, Q4H PRN (RT) dextrose, 15 g, Q15 Min PRN Or dextrose, 250 mL, Q15 Min PRN docusate sodium, 100 mg, BID PRN glucagon, 1 mg, Q30 Min PRN influenza quadrivalent [id number], 0.7 mL, During hospitalization ondansetron ODT, 4 mg, Q6H PRN Or ondansetron, 4 mg, Q6H PRN Continuous Infusions: Lab Review Recent Labs Lab Units 08/03/22 0635 08/02/22 0542 08/01/22 1100 WBC K/cumm 10.0* 9.9 9.5 HEMOGLOBIN g/dL 8.6* 9.0* 9.2* HEMATOCRIT % 27.7* 28.3* 29.0* PLATELETS K/cumm 302 302 316 NEUTROS PCT % 55.0 61.7 68.0 LYMPHS PCT % 34.4 27.4 23.4 MONOS PCT % 7.7 8.1 6.6 EOS PCT % 2.3 2.2 1.3 Recent Labs Lab Units 08/04/22 0725 08/04/22 0251 08/03/22 1948 08/03/22 0748 08/03/22 0635 08/02/22 0826 08/02/22 0542 08/01/22 18408/01/22 1100 SODIUM mmol/L -- -- -- -- 145 -- 141 -- 139 POTASSIUM PLASMA mmol/L -- -- -- -- 4.1 -- 4.3 -- 4.6 CHLORIDE mmol/L -- -- -- -- 108 -- 106 -- 102 CO2 mmol/L -- -- -- -- 26 -- 26 -- 25 ANIONGAP mmol/L -- -- -- -- 11 -- 9 -- 12 GLUCOSE mg/dL -- -- -- -- 245* -- 222* -- 242* POC GLUCOSE MONITOR mg/dL 168 201* 274* < > -- < > -- < > -- BUN SERUM mg/dL -- -- -- -- 50* -- 47* -- 45* CREATININE mg/dL -- -- -- -- 1.82* -- 1.82* -- 1.96* CALCIUM mg/dL -- -- -- -- 9.7 -- 9.2 -- 9.3 ALBUMIN g/dL -- -- -- -- -- -- -- -- 3.4* ALK PHOS Units/L -- -- -- -- -- -- -- -- 158* ALT Units/L -- -- -- -- -- -- -- -- 73* AST Units/L -- -- -- -- -- -- -- -- 65* BILIRUBIN TOTAL mg/dL -- -- -- -- -- -- -- -- <0.2 < > = values in this interval not displayed. Radiology: XR Chest 1 Vw Portable Final Result No active pulmonary disease. Electronically signed by: Alpesh Jaquez M.D. NE MPI SPECT (Rest and/or Stress) Multiple Studies (Results Pending) ECG: Results for orders placed during the hospital encounter of 08/01/22 ECG 12 lead Narrative Vent Rate: 74 bpm RR Interval: 808 msec AL Interval: 173 msec QRS Duration: 80 msec QT Interval: 425 msec QTC Interval: 452 msec P-R-T [place]: 64 - 17 - 16 degrees SINUS RHYTHM NORMAL ECG Electronically Signed By: Nathalia Velásquez MD Assessment/Plan Patient Active Problem List Diagnosis Date Noted Urinary tract infection without hematuria, site unspecified 08/01/2022 Acute cystitis without hematuria 06/19/2022 Pulmonary nodule 11/16/2021 Physical deconditioning 11/15/2021 Left leg DVT ([facility] ([facility]) 11/15/2021 Pressure ulcer 10/07/2021 Anemia 09/07/2021 Volume overload 09/06/2021 Late onset Alzheimer's dementia without behavioral disturbance ([facility]) 08/19/2021 Delirium 08/07/2021 Encounter for Medicare annual wellness exam 01/08/2021 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 2 diabetes mellitus ([facility] ([facility]) 12/11/2020 Dementia ([facility]) 10/10/2020 Encounter for psychiatric assessment 10/10/2020 Schizoaffective disorder, bipolar type ([facility] ([facility]) 10/10/2020 Hyperlipidemia associated with type 2 diabetes mellitus ([facility]) 04/03/2020 Iron deficiency anemia 04/02/2020 GERD (gastroesophageal reflux disease) 04/02/2020 Amputation of toe of right foot ([facility] ([facility]) 01/19/2020 Hypertension associated with diabetes ([facility]) 12/13/2019 Schizoaffective disorder, bipolar type ([facility] ([facility]) 08/30/2019 Type 2 diabetes mellitus with diabetic neuropathy, with long-term current use of insulin ([facility] ([facility]) 08/30/2019 Diabetic neuropathy ([facility]) Altered mental status, POA -With history of dementia -Likely 2/2 urinary tract infection -resolving -Continue to monitor closely Suspect UTI on admission, cont with Rocephin Diabetes type 2 with hyperglycemia -A1C 8.3 -cont with SSI , Lantus Generalized weakness -PT OT Hypertension, hod on Losartan -add edHydralazine -coreg increased by cards and losartan resumed Elevated troponins, associated with significant delta -cardiology saw CKD 3 -Creatinine at baseline -Avoid nephrotoxins, initially losartan and Lasix -Monitor renal function closely Hyperlipidemia -Continue statin Schizophrenia/depression/dementia -Continue Risperdal. Supportive care Parkinson -Continue Cogentin Diabetes neuropathy -Continue pregabalin Arthritis -Continue pain control p.r.n. Normocytic anemia, monitor Hb Mildly Elevated LFT's -Monitor labs VTE Prophylaxis Laboratory and imaging data independently reviewed by me Prior records and Care Everywhere if available were reviewed. Full Code CONSULTS IP CONSULT TO CARDIOLOGY IP CONSULT TO PHP MYSQL DEVELOPER Please note: This note was created in part using the [employer] dictation system. Credit Analyst variances May occur . Despite proofreading, typographical and Grammatical errors may occur. 08/04/2022 10:16 AM [facility] [place] [phone] RMATICS CONSULTANT * William Juares MD - 08/04/2022 7:43 AM CST Daily Progress [facility] Cardiology OBJECTIVE: Past Medical History: Diagnosis Date Arthritis Depression Diabetic neuropathy (HCC) Hyperlipidemia Hypertension Schizophrenia (HCC) Type 2 diabetes mellitus (HCC) Family History Problem Relation Age of Onset Stomach cancer Father Scheduled Medications Medication Dose Route Frequency apixaban (ELIQUIS) tablet 5 mg 5 mg oral Q12H atorvastatin (LIPITOR) tablet 20 mg 20 mg oral Daily benztropine (COGENTIN) tablet 1.5 mg 1.5 mg oral Nightly carvediloL (COREG) tablet 6.25 mg 6.25 mg oral BID with meals (bkfst, dinner) cefTRIAXone (ROCEPHIN) 2,000 mg/20 mL in sterile water (premix) 2,000 mg 2,000 mg intravenous Q24H SOL famotidine (PEPCID) tablet 10 mg 10 mg oral Nightly ferrous sulfate delayed release tablet 65 mg of elemental iron 65 mg of elemental iron oral Daily with breakfast [Held by Provider] furosemide (LASIX) tablet 40 mg 40 mg oral BID hydrALAZINE (APRESOLINE) tablet 25 mg 25 mg oral TID insulin glargine (LANTUS, SEMGLEE) 100 unit/mL injection 15 Units 15 Units subcutaneous Nightly insulin lispro (HumaLOG, ADMELOG) 100 unit/mL injection 0-10 Units 0-10 Units subcutaneous TID withmeals insulin lispro (HumaLOG, ADMELOG) 100 unit/mL injection 0-5 Units 0-5 Units subcutaneous Nightly [Held by Provider] losartan (COZAAR) tablet 25 mg 25 mg oral Daily multivit ujwuriej-twfc-HA-calcium (THERA-M) tablet 1 tablet 1 tablet oral Daily polyethylene glycol (MIRALAX) packet 17 g 17 g oral Daily pregabalin (LYRICA) capsule 150 mg 150 mg oral Nightly risperiDONE (RisperDAL) tablet 2 mg 2 mg oral Nightly Recent Labs Lab Units 08/03/22 0635 08/02/22 0542 08/01/22 1100 WBC K/cumm 10.0* 9.9 9.5 HEMOGLOBIN g/dL 8.6* 9.0* 9.2* HEMATOCRIT % 27.7* 28.3* 29.0* PLATELETS K/cumm 302 302 316 Recent Labs Lab Units 08/04/22 0725 08/04/22 0251 08/03/22 1948 08/03/22 1618 08/03/22 1202 08/03/22 0748 08/03/22 0635 08/02/22 0826 08/02/22 0542 08/01/22 1841 08/01/22 1100 SODIUM mmol/L -- -- -- -- -- -- 145 -- 141 -- 139 POTASSIUM PLASMA mmol/L -- -- -- -- -- -- 4.1 -- 4.3 -- 4.6 CHLORIDE mmol/L -- -- -- -- -- -- 108 -- 106 -- 102 CO2 mmol/L -- -- -- -- -- -- 26 -- 26 -- 25 ANIONGAP mmol/L -- -- -- -- -- -- 11 -- 9 -- 12 GLUCOSE mg/dL -- -- -- -- -- -- 245* -- 222* -- 242* POC GLUCOSE MONITOR mg/dL 168 201* 274* 244* 261* < > -- < > -- < > -- BUN SERUM mg/dL -- -- -- -- -- -- 50* -- 47* -- 45* CREATININE mg/dL -- -- -- -- -- -- 1.82* -- 1.82* -- 1.96* CALCIUM mg/dL -- -- -- -- -- -- 9.7 -- 9.2 -- 9.3 ALBUMIN g/dL -- -- -- -- -- -- -- -- -- -- 3.4* ALK PHOS Units/L -- -- -- -- -- -- -- -- -- -- 158* ALT Units/L -- -- -- -- -- -- -- -- -- -- 73* AST Units/L -- -- -- -- -- -- -- -- -- -- 65* BILIRUBIN TOTAL mg/dL -- -- -- -- -- -- -- -- -- -- <0.2 < > = values in this interval not displayed. Intake/Output Summary (Last 24 hours) at 08/04/2022 0743 Last data filed at 08/03/2022 1510 Gross per 24 hour Intake 240 ml Output -- Net 240 ml Vitals: 08/03/22 0739 08/03/22 1422 08/03/22 1959 08/04/22 0016 BP: 166/71 145/63 (!) 176/6 110/59 Pulse: 78 74 78 67 Resp: 18 Temp: 36.4 ??C (97.5 ??F) 36.7 ??C (98 ??F) 36.9 ??C (98.4 ??F) 36.8 ??C (98.2 ??F) TempSrc: Oral Oral SpO2: 95% 100% 98% 95% Weight: Height: ASSESSMENT/PLAN: Patient Active Problem List Diagnosis Schizoaffective disorder, bipolar type ([facility] ([facility]) Diabetic neuropathy ([facility]) Type 2 diabetes mellitus with diabetic neuropathy, with long-term current use of insulin ([facility] ([facility]) Hypertension associated with diabetes ([facility]) Amputation of toe of right foot ([facility]) ([facility]) Iron deficiency anemia GERD (gastroesophageal reflux disease) Hyperlipidemia associated with type 2 diabetes mellitus ([facility]) Dementia ([facility]) Encounter for psychiatric assessment Schizoaffective disorder, bipolar type ([facility] ([facility]) 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 2 diabetes mellitus ([facility] ([facility]) Encounter for Medicare annual wellness exam Delirium Late onset Alzheimer's dementia without behavioral disturbance ([facility]) Volume overload Anemia Pressure ulcer Physical deconditioning Left leg DVT ([facility] ([facility]) Pulmonary nodule Acute cystitis without hematuria Urinary tract infection without hematuria, site unspecified S no chest pain or shortness of breath Exam: Gen: Comfortable, NAD CVS: RRR, S1, S2 present GI: Soft Non tender Chest: CTAB Psych: Appropriate mood and affect Neuro: Alert, oriented, No deficits. ECHO 06/20/22 Interpretation Summary Ejection Fraction = 60-65%. The left atrium is mildly dilated. There is trace tricuspid regurgitation. No aortic stenosis . Trace pulmonic valvular regurgitation. Anterior pericardial fat pad noted. Assessment and Plan Weakness/Fatigue Hx dementia -+ UTI on abx -per primary Elevated troponin -Mildly elevated without acute rise in delta - MPI for risk stratificaiton to be done today - not on aspirin due to apixaban use currently on statin and beta-roz Hypertension -well controlled now continue monitor may consider resuming Lasix tomorrow Hyperlipidemia -on statin Diabetes -A1C 8.3 -SSI -Benefit from diabetic education DVT LLE on eliquis Anemia Hgb 9.0 range, normocytic CKD -stable monitor closely William Juares MD, [facility]IN [facility], [facility], [facility] [phone] 08/04/2022 7:43 AM RMATICS CONSULTANT * Marsha Marte NP - 08/03/2022 12:41 PM CST INPATIENT PROGRESS NOTE - HOSPITALIST Sixto Chakraborty is a 71 y.o. female at Hospital Day ( LOS: 2 days ) Chief Complaint Chief Complaint Patient presents with Altered Mental Status Subjective Interval History Patient seen and examined; chart reviewed. Bp elevated , pt reports, I'm feeling bad she denied n/v/pain just reported doesn't feel good. Objective: Temp Av.7 ??C (98 ??F) Min: 36.4 ??C (97.5 ??F) Max: 36.8 ??C (98.3 ??F) BP Min: 144/69 Max: 183/70 Pulse Av Min: 78 Max: 90 Resp Av.5 Min: 16 Max: 18 SpO2 Av.5 % Min: 95 % Max: 98 % Date 08/02/22699 - 08/03/22 0659 08/03/22699 - 08/04/22 0659 Shift [id number] 3568-8622 24 Hour Total 5253-4873 5789-1485 24 Hour Total INTAKE P.O. 240 240 120 120 Shift Total(mL/kg) 240(3.3) 240(3.3) 120(1.7) 120(1.7) OUTPUT Urine(mL/kg/hr) 1100(1.3) 1100(0.6) Shift Total(mL/kg) 1100(15.2) 1100(15.2) NET -860 -860 120 120 Weight (kg) 72.6 72.6 72.6 72.6 72.6 72.6 Intake/Output Summary (Last 24 hours) at 08/03/2022 1241 Last data filed at 08/03/2022 1045 Gross per 24 hour Intake 360 ml Output -- Net 360 ml Temp (24hrs), Av.7 ??C (98 ??F), Min:36.4 ??C (97.5 ??F), Max:36.8 ??C (98.3 ??F) PHYSICAL EXAMINATION General: Appears to be in no acute distress. HEENT: Head normocephalic, atraumatic. PERRLA. EOMI. Conjunctivae are clear. Sclerae are anicteric.Nares are patent. . Mucous membranes are moist. Neck: Supple. No lymphadenopathy, JVD. Lungs: Clear to auscultation. No crackle or wheezing noted. Cardiovascular: Normal S1, S2. Abdomen: Soft, nontender, nondistended with positive bowel sounds. Extremities: No clubbing, cyanosis or edema. Obese Neuro: Alert and oriented x2-3. Doesn't know current president Active Scheduled and PRN meds apixaban, 5 mg, Q12H atorvastatin, 20 mg, Daily benztropine, 1.5 mg, Nightly carvediloL, 6.25 mg, BID with meals (bkfst, dinner) cefTRIAXone, 2,000 mg, Q24H SOL famotidine, 10 mg, Nightly ferrous sulfate, 65 mg of elemental iron, Daily with breakfast [Held by Provider] furosemide, 40 mg, BID hydrALAZINE, 25 mg, TID insulin glargine, 15 Units, Nightly insulin lispro, 0-10 Units, TID with meals insulin lispro, 0-5 Units, Nightly [Held by Provider] losartan, 25 mg, Daily multivitamin with minerals, 1 tablet, Daily polyethylene glycol, 17 g, Daily pregabalin, 150 mg, Nightly risperiDONE, 2 mg, Nightly acetaminophen, 650 mg, Q4H PRN albuterol HFA, 2 puff, Q4H PRN (RT) dextrose, 15 g, Q15 Min PRN Or dextrose, 250 mL, Q15 Min PRN docusate sodium, 100 mg, BID PRN glucagon, 1 mg, Q30 Min PRN influenza quadrivalent [id number], 0.7 mL, During hospitalization ondansetron ODT, 4 mg, Q6H PRN Or ondansetron, 4 mg, Q6H PRN Continuous Infusions: Lab Review Recent Labs Lab Units 08/03/22 0635 08/02/22 0542 08/01/22 1100 WBC K/cumm 10.0* 9.9 9.5 HEMOGLOBIN g/dL 8.6* 9.0* 9.2* HEMATOCRIT % 27.7* 28.3* 29.0* PLATELETS K/cumm 302 302 316 NEUTROS PCT % 55.0 61.7 68.0 LYMPHS PCT % 34.4 27.4 23.4 MONOS PCT % 7.7 8.1 6.6 EOS PCT % 2.3 2.2 1.3 Recent Labs Lab Units 08/03/22 1202 08/03/22 0748 08/03/22 0635 08/02/22 0826 08/02/22 0542 08/01/22 1841 08/01/22 1100 SODIUM mmol/L -- -- 145 -- 141 -- 139 POTASSIUM PLASMA mmol/L -- -- 4.1 -- 4.3 -- 4.6 CHLORIDE mmol/L -- -- 108 -- 106 -- 102 CO2 mmol/L -- -- 26 -- 26 -- 25 ANIONGAP mmol/L -- -- 11 -- 9 -- 12 GLUCOSE mg/dL -- -- 245* -- 222* -- 242* POC GLUCOSE MONITOR mg/dL 261* 243* -- < > -- < > -- BUN SERUM mg/dL -- -- 50* -- 47* -- 45* CREATININE mg/dL -- -- 1.82* -- 1.82* -- 1.96* CALCIUM mg/dL -- -- 9.7 -- 9.2 -- 9.3 ALBUMIN g/dL -- -- -- -- -- -- 3.4* ALK PHOS Units/L -- -- -- -- -- -- 158* ALT Units/L -- -- -- -- -- -- 73* AST Units/L -- -- -- -- -- -- 65* BILIRUBIN TOTAL mg/dL -- -- -- -- -- -- <0.2 < > = values in this interval not displayed. Radiology: XR Chest 1 Vw Portable Final Result No active pulmonary disease. Electronically signed by: Alpesh Jaquez M.D. ECG: Results for orders placed during the hospital encounter of 08/01/22 ECG 12 lead Narrative Vent Rate: 74 bpm RR Interval: 808 msec AL Interval: 173 msec QRS Duration: 80 msec QT Interval: 425 msec QTC Interval: 452 msec P-R-T [place]: 64 - 17 - 16 degrees SINUS RHYTHM NORMAL ECG Electronically Signed By: aNthalia Velásquez MD Assessment/Plan Patient Active Problem List Diagnosis Date Noted Urinary tract infection without hematuria, site unspecified 08/01/2022 Acute cystitis without hematuria 06/19/2022 Pulmonary nodule 11/16/2021 Physical deconditioning 11/15/2021 Left leg DVT ([facility] ([facility]) 11/15/2021 Pressure ulcer 10/07/2021 Anemia 09/07/2021 Volume overload 09/06/2021 Late onset Alzheimer's dementia without behavioral disturbance ([facility]) 08/19/2021 Delirium 08/07/2021 Encounter for Medicare annual wellness exam 01/08/2021 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 2 diabetes mellitus ([facility] ([facility]) 12/11/2020 Dementia ([facility]) 10/10/2020 Encounter for psychiatric assessment 10/10/2020 Schizoaffective disorder, bipolar type ([facility]) ([facility]) 10/10/2020 Hyperlipidemia associated with type 2 diabetes mellitus ([facility]) 04/03/2020 Iron deficiency anemia 04/02/2020 GERD (gastroesophageal reflux disease) 04/02/2020 Amputation of toe of right foot ([facility]) ([facility]) 01/19/2020 Hypertension associated with diabetes ([facility]) 12/13/2019 Schizoaffective disorder, bipolar type ([facility]) ([facility]) 08/30/2019 Type 2 diabetes mellitus with diabetic neuropathy, with long-term current use of insulin ([facility]) ([facility]) 08/30/2019 Diabetic neuropathy ([facility]) Altered mental status, POA -With history of dementia -Likely 2/2 urinary tract infection -resolving -Continue to monitor closely Suspect UTI on admission, cont with Rocephin Diabetes type 2 with hyperglycemia -A1C 8.3 -cont with SSI , Lantus Generalized weakness -PT OT Hypertension, hod on Losartan -add edHydralazine -coreg increased by cards and losartan resumed Elevated troponins, associated with significant delta -cardiology saw CKD 3 -Creatinine at baseline -Avoid nephrotoxins, initially losartan and Lasix -Monitor renal function closely Hyperlipidemia -Continue statin Schizophrenia/depression/dementia -Continue Risperdal. Supportive care Parkinson -Continue Cogentin Diabetes neuropathy -Continue pregabalin Arthritis -Continue pain control p.r.n. Normocytic anemia, monitor Hb Mildly Elevated LFT's -Monitor labs VTE Prophylaxis Laboratory and imaging data independently reviewed by me Prior records and Care Everywhere if available were reviewed. Full Code CONSULTS IP CONSULT TO CARDIOLOGY IP CONSULT TO PHP MYSQL DEVELOPER Please note: This note was created in part using the M*Modal Fluency Direct dictation system. Credit Analyst variances May occur . Despite proofreading, typographical and Grammatical errors may occur. 08/03/2022 12:41 PM [facility] [phone] RMATICS CONSULTANT * Jovanni Tejeda, - 08/03/2022 12:25 PM CST Cardiology Progress Note - [facility] SUBJECTIVE: Feels well Bp elevated Current Medications: Scheduled Meds:apixaban, 5 mg, oral, Q12H atorvastatin, 20 mg, oral, Daily benztropine, 1.5 mg, oral, Nightly carvediloL, 3.125 mg, oral, BID with meals (bkfst, dinner) cefTRIAXone, 2,000 mg, intravenous, Q24H SOL famotidine, 10 mg, oral, Nightly ferrous sulfate, 65 mg of elemental iron, oral, Daily with breakfast [Held by Provider] furosemide, 40 mg, oral, BID hydrALAZINE, 25 mg, oral, TID insulin glargine, 15 Units, subcutaneous, Nightly insulin lispro, 0-10 Units, subcutaneous, TID with meals insulin lispro, 0-5 Units, subcutaneous, Nightly [Held by Provider] losartan, 25 mg, oral, Daily multivitamin with minerals, 1 tablet, oral, Daily polyethylene glycol, 17 g, oral, Daily pregabalin, 150 mg, oral, Nightly risperiDONE, 2 mg, oral, Nightly Continuous Infusions: PRN Meds:. acetaminophen albuterol HFA dextrose OR dextrose docusate sodium glucagon influenza quadrivalent [id number] ondansetron ODT OR ondansetron Physical Examination: Vitals: 08/02/22 1521 08/02/22 2015 08/03/22 0035 08/03/22 0739 BP: (!) 174/71 (!) 183/70 144/69 166/71 BP Location: Left arm Pulse: 85 83 90 78 Resp: Temp: 36.7 ??C (98.1 ??F) 36.7 ??C (98.1 ??F) 36.8 ??C (98.3 ??F) 36.4 ??C (97.5 ??F) TempSrc: Oral Oral Oral SpO2: 98% 96% 97% 95% Weight: Height: General: No acute distress Neuro: Alert and oriented x 2, moves all extremities well HEENT: normocephalic, atraumatic, thyroid not enlarged. I do not appreciate JVD. Neck: There are nocarotid bruits. Chest: symmetric, stable. Lungs: symmetric, unlabored, clear to auscultation bilaterally Heart: regular rate & rhythm, no murmurs, rubs, or gallops Abdomen: soft, non-tender, non-distended, bowel sounds present Extremities: no LE edema, palpable peripheral pulses BL Neurologic: No focal deficits Review of LABS: Recent Labs Lab Units 08/03/22 0635 WBC K/cumm 10.0* HEMOGLOBIN g/dL 8.6* HEMATOCRIT % 27.7* PLATELETS K/cumm 302 Recent Labs Lab Units 08/03/22 1202 08/03/22 0748 08/03/22 0635 SODIUM mmol/L -- -- 145 POTASSIUM PLASMA mmol/L -- -- 4.1 CHLORIDE mmol/L -- -- 108 CO2 mmol/L -- -- 26 ANIONGAP mmol/L -- -- 11 BUN SERUM mg/dL -- -- 50* CREATININE mg/dL -- -- 1.82* GLUCOSE mg/dL -- -- 245* POC GLUCOSE MONITOR mg/dL 261* < > -- CALCIUM mg/dL -- -- 9.7 < > = values in this interval not displayed. Lab Results Component Value Date HGBA1C 8.3 (H) 08/02/2022 Lab Results Component Value Date INR 1.3 (H) 01/09/2020 INR 1.4 (H) 01/05/2020 Lab Results Component Value Date TSH 1.52 09/02/2021 ECHO 06/20/22 Interpretation Summary Ejection Fraction = 60-65%. The left atrium is mildly dilated. There is trace tricuspid regurgitation. No aortic stenosis . Trace pulmonic valvular regurgitation. Anterior pericardial fat pad noted. Assessment and Plan Weakness/Fatigue Hx dementia -+ UTI on abx -per primary Elevated troponin -Mildly elevated without acute rise in delta, appears chronic -proBNP 125, CXR no acute disease -No concerning changes on ecg -No complaints of dyspnea or angina -Can consider nuc stress test for risk stratification in fu Hypertension -Above goal, Cr at baseline, resumed losartan -increase coreg Hyperlipidemia -on statin Diabetes -A1C 8.3 -SSI -Benefit from diabetic education DVT LLE on eliquis Anemia Hgb 9.0 range, normocytic CKD -egfr 29, Cr. 1.82. At baseline -resumed losartan Increase carvedilol to 6.25 bid Jovanni Tejeda DO, [facility] 08/03/2022 12:25 PM RMATICS CONSULTANT * Lupillo Doe MD - 08/02/2022 12:09 PM CST Hospitalist Progress Note Name: Sixto Chakraborty Admission Date: 08/01/2022 Today's Date: 08/02/2022 Subjective: Pt was seen and examined, pt admitted with altered mentation Clinical course: Overall pt condition has improved. Pt c/o weakness, stated uses a walker to ambulate Objective: Vitals: 08/01/22 2240 08/01/22 2357 08/02/22 0015 08/02/22 0752 BP: 107/64 (!) 174/76 165/61 BP Location: Left arm Patient Position: Pulse: 74 78 75 Resp: 16 16 18 Temp: 36.9 ??C (98.4 ??F) 36.6 ??C (97.8 ??F) TempSrc: Oral Oral SpO2: 96% 97% 97% Weight: 72.6 kg (160 lb 0.9 oz) Height: 157.5 cm (5' 2.01 ) Wt Readings from Last 3 Encounters: 08/02/22 72.6 kg (160 lb 0.9 oz) 07/18/22 72.1 kg (159 lb) 06/20/22 71 kg (156 lb 8 oz) I/O last 3 completed shifts: In: - Out: 700 [Urine:700] I/O this shift: In: - Out: 1100 [Urine:1100] Scheduled Meds Current Facility-Administered Medications Medication Dose Route Frequency Provider Last Rate Last Admin acetaminophen (TYLENOL) tablet 650 mg 650 mg oral Q4H PRN Marie Donaldson NP albuterol HFA (PROVENTIL HFA,VENTOLIN HFA,PROAIR HFA) 90 mcg/actuation inhaler 2 puff 2 puff inhalation Q4H PRN (RT) Marie Donaldson NP apixaban (ELIQUIS) tablet 5 mg 5 mg oral Q12H Marie Donaldson NP 5 mg at 08/02/22 0558 atorvastatin (LIPITOR) tablet 20 mg 20 mg oral Daily Marie Donaldson NP 20 mg at 08/02/22 0832 benztropine (COGENTIN) tablet 1.5 mg 1.5 mg oral Nightly Marie Donaldson NP 1.5 mg at 08/01/22 2319 carvediloL (COREG) tablet 3.125 mg 3.125 mg oral BID with meals (bkfst, dinner) Marie Donaldson NP 3.125 mg at 08/02/22 0833 [START ON 08/03/2022] cefTRIAXone (ROCEPHIN) 2,000 mg/20 mL in sterile water (premix) 2,000 mg 2,000mg intravenous Q24H [facility] Lupillo Doe MD dextrose oral liquid liquid 15 g 15 g oral Q15 Min PRN Lupillo Doe MD Or dextrose (D10W) 10% bolus 250 mL 250 mL intravenous Q15 Min PRN Lupillo Doe MD docusate sodium (COLACE) capsule 100 mg 100 mg oral BID PRN Marie Donaldson NP famotidine (PEPCID) tablet 10 mg 10 mg oral Nightly Marie Donaldson NP 10 mg at 320 ferrous sulfate delayed release tablet 65 mg of elemental iron 65 mg of elemental iron oral Daily with breakfast Brett Schmidt MD 65 mg of elemental iron at 08/02/22 0832 [Held by Provider] furosemide (LASIX) tablet 40 mg 40 mg oral BID Marie Donaldson NP 40 mg at 08/02/22 0832 glucagon injection 1 mg 1 mg intramuscular Q30 Min PRN Lupillo Doe MD influenza quadrivalent [id number] (FLUZONE HIGH DOSE) 240 mcg/0.7 mL vaccine (HIGH DOSE age 65 yearsand up) 0.7 mL 0.7 mL intramuscular During hospitalization Brett Schmidt MD insulin glargine (LANTUS, SEMGLEE) 100 unit/mL injection 15 Units 15 Units subcutaneous Nightly Lupillo Doe MD insulin lispro (HumaLOG, ADMELOG) 100 unit/mL injection 0-10 Units 0-10 Units subcutaneous TID withmeals Lupillo Doe MD 4 Units at 08/02/22 1204 insulin lispro (HumaLOG, ADMELOG) 100 unit/mL injection 0-5 Units 0-5 Units subcutaneous Nightly Lupillo Doe MD losartan (COZAAR) tablet 25 mg 25 mg oral Daily Brandie Garcia NP multivit lgcfkqzv-zbuk-EJ-calcium (THERA-M) tablet 1 tablet 1 tablet oral Daily Brett Schmidt MD 1 tablet at 08/02/22 0832 ondansetron ODT (ZOFRAN-ODT) disintegrating tablet 4 mg 4 mg oral Q6H PRN Marie Donaldson NP Or ondansetron (ZOFRAN) injection 4 mg 4 mg intravenous Q6H PRN Marie Donaldson NP polyethylene glycol (MIRALAX) packet 17 g 17 g oral Daily Marie Donaldson NP 17 g at 08/02/22 0833 pregabalin (LYRICA) capsule 150 mg 150 mg oral Nightly Marie Donaldson NP 150 mg at 08/01/22 2320 risperiDONE (RisperDAL) tablet 2 mg 2 mg oral Nightly Marie Donaldson NP acetaminophen albuterol HFA dextrose OR dextrose docusate sodium glucagon influenza quadrivalent ondansetron ODT OR ondansetron Physical Exam: General: alert, cooperative, no distress, appears stated age HEENT: Head:normacephalic, Eyes: Perrla, EOMI bilaterally, nasal and oral mucosal pink and moist Heart: normal rate, regular rhythm, normal S1, S2, no murmurs, rubs, clicks or gallops Lungs: clear to auscultation, no wheezes or rales and unlabored breathing Abdomen: soft, nontender, nondistended, no masses or organomegaly Extremities: peripheral pulses normal, no pedal edema, no clubbing or cyanosis Neuro: alert, oriented x 3, no defects noted in general exam. Lab Data Laboratory review: Chemistry CMP: Lab Results Component Value Date ALBUMIN 3.4 (L) 08/01/2022 BUNSER 47 (H) 08/02/2022 CALCIUM 9.2 08/02/2022 CO2 26 08/02/2022 CHLORIDE 106 08/02/2022 CREATININE 1.82 (H) 08/02/2022 GLUCOSE 236 (H) 08/02/2022 GLUCOSE 222 (H) 08/02/2022 POTASSIUM 4.3 08/02/2022 SODIUM 141 08/02/2022 BILITOT <0.2 08/01/2022 PROT 7.2 08/01/2022 ALT 73 (H) 08/01/2022 AST 65 (H) 08/01/2022 ALKPHOS 158 (H) 08/01/2022 , CBC: Lab Results Component Value Date WBC 9.9 08/02/2022 RBC 3.01 (L) 08/02/2022 HGB 9.0 (L) 08/02/2022 HCT 28.3 (L) 08/02/2022 MCV 94.0 08/02/2022 MCH 29.9 08/02/2022 MCHC 31.8 (L) 08/02/2022 RDWCV 14.8 08/02/2022 RDWSD 51.1 (H) 08/02/2022 MPV 11.1 08/02/2022 NRBCABS 0.00 08/02/2022 , Coags: No results found for: PT, PTT, APTT, FFN, FIBRINOGEN, INR, ACTIVATEDCL, Lipids: No resultsfound for: CHOL, CHLPL, HDL, LDLCALC, TRIG, CHOLHDL, Cardiac Enzymes: No results found for: CKTOTAL, CKMB, CKMBINDEX, TROPONINT and POC Glucose: Lab Results Component Value Date GLUCOSE 236 (H) 08/02/2022 GLUCOSE 222 (H) 08/02/2022 Home Medications have been reviewed and updated on pt's list Assessment and Plan Altered mental status, POA -With history of dementia -Likely 2/2 urinary tract infection -resolving -Continue to monitor closely Suspect UTI on admission, cont with Rocephin Diabetes type 2 with hyperglycemia -A1C 8.3 -cont with SSI protocol, add Lantus Generalized weakness -PT OT Hypertension, hold on Losartan -add Hydralazine Elevated troponins, associated with significant delta -cardiology saw Acute kidney injury -Creatinine at baseline -Avoid nephrotoxins, held losartan and Lasix -Monitor renal function closely Hyperlipidemia -Continue statin Schizophrenia/depression/dementia -Continue Risperdal. Supportive care Parkinson -Continue Cogentin Diabetes neuropathy -Continue pregabalin Arthritis -Continue pain control p.r.n. Normocytic anemia, monitor Hb Mildly Elevated LFT's -Monitor labs DVT prophylaxis :Yves Pt will need continued inpatient management for the above medical issues. Code status: full Lupillo Doe MD [facility] Hospitalist 08/02/2022 12:09 PM RMATICS CONSULTANT documented in this encounter H&P Notes * Marie Donaldson, JARAD - 08/01/2022 6:27 PM CST History and Physical CHIEF COMPLAINT Chief Complaint Patient presents with Altered Mental Status HPI Patient is a 71 y.o. female with past medical history of hyperlipidemia, hypertension, diabetes type 2, schizophrenia, dementia, Parkinson diabetes neuropathy, depression and arthritis who presented to the emergency room with complaints of generalized weakness, fatigue and hypotension. Patient is apoor historian with forgetfulness and therefore information for this history and physical is being obtained per ER chart review. Per chart review, patient was her physical therapy session and was noted to be off from her baseline. She was therefore brought the emergency room further evaluation. Currently patient denies chest pain, shortness of breath chills, fever, nausea, abdominal pain, constipation or diarrhea. On arrival to Emergency Room, vital signs, temp 98.3??, pulse 73, respirations 16, BP 129/57, O2 sats 97%. Currently on room air. Labs, HGB 9.2, HCT 29.0, creatinine 1.96, AST 65, ALT 73, alk phos 158. Troponins elevated significant delta. COVID negative. Urinalysis with 2+ leukocyte esterase, WBC's>50, +1 bacteria. Chest x-ray showed no active pulmonary disease. In the ED, was started on IV ceftriaxone. Due to above, patient is being admitted for further evaluation, and management. PAST MEDICAL HISTORY Past Medical History: Diagnosis Date Arthritis Depression Diabetic neuropathy (HCC) Hyperlipidemia Hypertension Schizophrenia (HCC) Type 2 diabetes mellitus (HCC) PAST SURGICAL HISTORY Past Surgical History: Procedure Laterality Date SECTION Right right foot TOE AMPUTATION Right 01/06/2020 4th toe amp/ foot debridement/ Dr. Anat Pelayo ALLERGIES No Known Allergies FAMILY HISTORY family history includes Stomach cancer in her father. SOCIAL HISTORY Patient lives home with family. Has 3 children. Patient does not smoke, drink alcohol or use illicit drugs. HOME MEDICATIONS Prior to Admission medications Medication Sig Start Date End Date Taking? Authorizing Provider acetaminophen (TYLENOL) 325 mg tablet Take 650 mg by mouth every 6 (six) hours as needed for pain Provider, MD Joe albuterol HFA (ProAir HFA) 90 mcg/actuation inhaler Inhale 2 puffs every 4 (four) hours as needed for wheezing or shortness of breath 09/25/21 09/25/22 Cherelle Corcoran MD apixaban (ELIQUIS) 5 mg tablet Take 1 tablet (5 mg total) by mouth every 12 (twelve) hours 05/19/22Cherelle Corcoran MD atorvastatin (LIPITOR) 20 mg tablet Take 1 tablet (20 mg total) by mouth daily 05/26/22 05/26/23 Cherelle Corcoran MD BD Arlyn 2nd Gen Pen Needle 32 gauge x 5/32 needle USE TO INJECT BASAGLAR EVERY NIGHT AT BEDTIME 06/25/21 Provider, MD Joe benztropine (COGENTIN) 1 mg tablet Take 1.5 tablets (1.5 mg total) by mouth nightly 07/18/22 10/16/22Macey Ellis NP blood pressure monitor kit Check BP as instructed 03/20/21 Markie Ryan MD capsaicin (ZOSTRIX) 0.025 % cream Apply topically 2 (two) times a day 08/13/21 Kenny Dixon MD carvediloL (COREG) 3.125 mg tablet Take 1 tablet (3.125 mg total) by mouth 2 (two) times a day withmeals 04/29/22 04/29/23 Cherelle Corcoran MD conner.stocking,thigh,reg,med misc Wear as much as possible 05/28/21 Cherelle Corcoran MD dulaglutide (TRULICITY) 1.5 mg/0.5 mL pen injector Inject 0.5 mL (1.5 mg total) under the skin every 7 days 07/30/22 Cherelle Corcoran MD famotidine (PEPCID) 10 mg tablet Take 1 tablet (10 mg total) by mouth nightly 02/13/22 Cherelle Corcoran MD ferrous sulfate 325 mg (65 mg of elemental iron) tablet Take 1 tablet (325 mg total) by mouth dailywith breakfast 07/30/22 07/30/23 Cherelle Corcoran MD flash glucose scanning reader (FreeStyle Madhav 2 [place]) [facility] Use to continually monitor glucose 10/01/21 Anant Kauffman MD flash glucose sensor (FreeStyle Madhav 2 Sensor) kit Use to continually monitor glucose, change every 14 days 10/01/21 Anant Kauffman MD furosemide (LASIX) 40 mg tablet Take 1 tablet (40 mg total) by mouth 2 (two) times a day Patient taking differently: Take 40 mg by mouth 2 (two) times a day rx# [id number] 10/16/21 10/16/22 Markie Ryan MD insulin glargine 100 unit/mL (3 mL) pen for injection Inject 34 Units under the skin nightly 05/26/22 Cherelle Corcoran MD insulin lispro (HumaLOG, ADMELOG) 100 unit/mL pen for injection Inject 12 Units under the skin 3 (three) times a day with meals Patient taking differently: Inject 12 Units under the skin 3 (three) times a day with meals Plus sliding scale 04/02/22 Cherelle Corcoran MD ketoconazole (NIZORAL) 2 % cream Apply topically 2 (two) times a day Patient not taking: Reported on 07/18/2022 01/14/22 Cherelle Corcoran MD [facility] Check blood sugar up to 3 times a day Patient not taking: Reported on 07/18/2022 11/13/20 Cherelle Corcoran MD lidocaine (LIDODERM) 5 % Place 1 patch on the skin daily. apply on patch to the painful area once every day and leave on for 12 hours then off for 12 hours. Rx# [id number] in home 05/02/22 per Hanny Cruz PTA entered by Tameal Swanson RN 05/04/22 Indications: pain Provider, MD Joe miscellaneous medical supply (Blood Pressure Cuff) [facility] Use to check blood pressure daily 10/07/21 Cherelle Corcoran MD multivitamin with minerals tablet Take 1 tablet by mouth daily Provider, MD Joe OneTouch Verio test strips strip TEST 3 TO 4 TIMES DAILY 06/25/21 Cherelle Corcoran MD polyethylene glycol (MIRALAX) 17 gram packet Take 1 packet (17 g total) by mouth daily Patient taking differently: Take 17 g by mouth as needed 08/14/21 Kenny Dixon MD pregabalin (LYRICA) 150 mg capsule Take 1 capsule (150 mg total) by mouth nightly 05/26/22 Cherelle Corcoran MD risperiDONE (RisperDAL) 2 mg tablet Take 1 tablet (2 mg total) by mouth nightly 08/07/21 08/07/22 Adryan Swenson MD syringe with needle, insulin (INSULIN SYRINGE-NEEDLE U-100 [facility]) 3 times a day 09/12/17 Provider, Historical, MD valsartan (DIOVAN) 40 mg tablet Take 1 tablet (40 mg total) by mouth daily 02/12/22 02/12/23 Markie Ryan MD omeprazole (PriLOSEC) 20 mg capsule Take 1 capsule (20 mg total) by mouth daily 06/13/21 09/06/21 Cherelle Corcoran MD REVIEW OF SYSTEMS 14 point review of systems is negative except for what I have already mentioned above in the history of present illness. OBJECTIVE Temp Av.8 ??C (98.3 ??F) Min: 36.8 ??C (98.3 ??F) Max: 36.8 ??C (98.3 ??F) BP Min: 129/57 Max: 129/57 Pulse Av Min: 73 Max: 73 Resp Av Min: 16 Max: 16 SpO2 Av % Min: 97 % Max: 97 % No intake/output data recorded. Weight: Wt Readings from Last 1 Encounters: 08/01/22 72.6 kg (160 lb) PHYSICAL EXAM General: This is a 71 y.o. female in no acute distress. Head: Normocephalic, atraumatic. Eyes: PERRLA, EOMI bilaterally. No conjunctival injection. Nasal cavity is patent. Throat is clear.Mucus membranes are pink and moist without bleeding. Neck: Supple. No JVD. No lymphadenopathy. Trachea is in the midline position. Lungs: Clear breath sounds bilaterally. No wheezing auscultated. Heart: S1 and S2. No murmur auscultated. Abdomen: Round, soft, nontender. Bowel sounds are present in all four quadrants. Extremities: No cyanosis, clubbing or edema. Neuro: Patient is awake and alert x2. Speech is clear and coherent.Tremors Psychiatric: Normal mood and affect. Behavior is normal. Skin: Warm and dry. No rashes or lesions. LAB/RADIOLOGY/DIAGNOSTIC: Recent Labs Lab Units 08/01/22 1100 WBC K/cumm 9.5 HEMOGLOBIN g/dL 9.2* HEMATOCRIT % 29.0* PLATELETS K/cumm 316 NEUTROS PCT % 68.0 LYMPHS PCT % 23.4 MONOS PCT % 6.6 EOS PCT % 1.3 Recent Labs Lab Units 02/10/23 1100 SODIUM mmol/L 139 POTASSIUM PLASMA mmol/L 4.6 CHLORIDE mmol/L 102 CO2 mmol/L 25 ANIONGAP mmol/L 12 GLUCOSE mg/dL 242* BUN SERUM mg/dL 45* CREATININE mg/dL 1.96* CALCIUM mg/dL 9.3 ALBUMIN g/dL 3.4* ALK PHOS Units/L 158* ALT Units/L 73* AST Units/L 65* BILIRUBIN TOTAL mg/dL <0.2 Lab Results Lab Value Date/Time TROPONINI <0.04 05/04/2014 1350 No results found for: BNP Lab Results Component Value Date TSH 1.52 09/02/2021 TSH 1.54 02/07/2021 TSH 0.990 10/16/2020 Recent Labs Lab Units 08/01/22 1252 COLOR U Yellow CLARITY U Cloudy* SPEC GRAV U 1.009 PH, URINE 6.0 PROTEIN UR QL 2+* GLUCOSE URQL Trace* KETONES UR Negative BLOOD UR 1+* NITRITE UR Negative LEUKOCYTE ESTERASE UR 2+* LAB TREND CBC: Lab Results Component Value Date WBC 9.5 08/01/2022 HGB 9.2 (L) 08/01/2022 HCT 29.0 (L) 08/01/2022 BMP: Lab Results Component Value Date SODIUM 139 08/01/2022 POTASSIUM 4.6 08/01/2022 CHLORIDE 102 08/01/2022 CREATININE 1.96 (H) 08/01/2022 CALCIUM 9.3 08/01/2022 No results found for: BNP Lab Results Component Value Date ALKPHOS 158 (H) 08/01/2022 No results found for: MAGNESIUM Lab Results Component Value Date AST 65 (H) 08/01/2022 Lab Results Component Value Date ALT 73 (H) 08/01/2022 Radiology: XR Chest 1 Vw Portable Result Date: 08/01/2022 Narrative: EXAMINATION: XR CHEST 1 VIEW DATE: 08/01/2022 4:20 PM HISTORY: Weakness FINDINGS: No infiltrate, effusion or pneumothorax is present. Heart size, mediastinum and pulmonary vascularity are normal. Impression: No active pulmonary disease. Electronically signed by: Alpesh Jaquez M.D. EKG: Results for orders placed during the hospital encounter of 06/19/22 ECG 12 lead ASSESSMENT AND PLAN All Diagnosis Present on Admission Present on Admission: Altered mental status Resolving. With history of dementia Likely 2/2 urinary tract infection Continue to monitor closely Urinary tract infection Continue IV ceftriaxone UA culture pending. Follow Diabetes type 2 Continue Accu-Checks, sliding scale insulin Hemoglobin A1c in a.m. Generalized weakness PT OT Hypertension Continue Coreg, Lasix Monitor BP closely Elevated troponin's With significant delta EKG ordered. Trend troponins. Tele monitoring Cardiology consulted Acute kidney injury Creatinine at baseline Avoid nephrotoxins, held losartan Monitor renal function closely Hyperlipidemia Continue statin Schizophrenia/depression/dementia Continue Risperdal. Supportive care Parkinson Continue Cogentin Diabetes neuropathy Continue pregabalin Arthritis Continue pain control p.r.n. Normocytic anemia HGB stable Elevated LFT's Monitor labs DVT and GI prophylaxis initiated. CONSULTS None Code Status: Full Code Anticipated date of discharge: To be determined per hospital course Marie Donaldson NP 08/01/2022 6:28 PM Team [facility] Primary Care Physician: Cherelle Corcoran MD Voice recognition software [employer] was used dictate and transcribe this document. Credit Analyst variances may occur. Despite proofreading, typographical errors may occur. Cosigned by Lupillo Doe MD at 08/02/2022 10:37 AM INFORMATICS CONSULTANT RMATICS CONSULTANT RMATICS CONSULTANT RMATICS CONSULTANT RMATICS CONSULTANT documented in this encounter Consult Notes * Brandie Garcia NP - 08/02/2022 11:48 AM CSTAssociated Order(s): IP CONSULT TO CARDIOLOGY Cardiology Consult- [facility] Patient's Primary Care Physician: Cherelle Corcoran MD Name: Sixto Chakraborty Age: 71 y.o. Race: Sex: female Chief Complaint/History of Present Illness 71y/o F with PMHx HTN, HLD, DM, dementia, DVT presented to the hospital with weakness and fatigue. Patient is a poor historian, most information obtained from chart review. She is noted have a UTI and was started on abx. She had mildly elevated troponin and cardiology was consulted. Per patient no complaints of chest pain or shortness of breath. She does complain of flank pain on the left side. Denies dizziness, palpitations. Past Medical History: Diagnosis Date Arthritis Depression [...] Frequency of Binge Drinking: Not on file Medications Prior to Admission Medication Sig Dispense [...] flash glucose scanning reader (FreeStyle Madhav 2 [place]) misc Use to continually monitor glucose 1 each 0 flash glucose sensor (FreeStyle Madhav 2 Sensor) kit Use to continually monitor glucose, change every 14 days 6 kit 3 furosemide (LASIX) 40 mg tablet Take 1 tablet (40 mg total) by mouth 2 (two) times a day (Patient taking differently: Take 40 mg by mouth 2 (two) times a day rx# [id number]) 60 tablet 11 insulin glargine 100 unit/mL [...] a day (Patient not taking: Reported on 07/18/2022) 30 g 0 lancets mis Check blood sugar up to 3 times a day (Patient not taking: Reported on 07/18/2022) 100 each 3 lidocaine (LIDODERM) 5 % Place 1 patch on the skin daily. apply on patch to the painful area once every day and leave on for 12 hours then off for 12 hours. Rx# [id number] in home 05/02/22 per Hanny Cruz PTA entered by Tamela Swanson RN 05/04/22 Indications: pain miscellaneous medical supply (Blood Pressure Cuff) mis Use to check blood pressure daily 1 each 1 multivitamin with minerals tablet [...] by mouth daily 90 tablet 3 No Known Allergies MEDICATIONS FOR CURRENT ENCOUNTER: SCHEDULED MEDICATIONS: Scheduled Medications Medication Dose Route Frequency apixaban (ELIQUIS) tablet 5 mg 5 mg oral Q12H atorvastatin (LIPITOR) tablet 20 mg 20 mg oral Daily benztropine (COGENTIN) tablet 1.5 mg 1.5 mg oral Nightly carvediloL (COREG) tablet 3.125 mg 3.125 mg oral BID with meals (bkfst, dinner) [START ON 08/03/2022] cefTRIAXone (ROCEPHIN) 2,000 mg/20 mL in sterile water (premix) 2,000 mg 2,000mg intravenous Q24H SOL famotidine (PEPCID) tablet 10 mg 10 mg oral Nightly ferrous sulfate delayed release tablet 65 mg of elemental iron 65 mg of elemental iron oral Daily with breakfast [Held by Provider] furosemide (LASIX) tablet 40 mg 40 mg oral BID insulin glargine (LANTUS, SEMGLEE) 100 unit/mL injection 15 Units 15 Units subcutaneous Nightly insulin lispro (HumaLOG, ADMELOG) 100 unit/mL injection 0-10 Units 0-10 Units subcutaneous TID withmeals insulin lispro (HumaLOG, ADMELOG) 100 unit/mL injection 0-5 Units 0-5 Units subcutaneous Nightly multivit jqabxsye-exbr-FM-calcium (THERA-M) tablet 1 tablet 1 tablet oral Daily polyethylene glycol (MIRALAX) packet 17 g 17 g oral Daily pregabalin (LYRICA) capsule 150 mg 150 mg oral Nightly risperiDONE (RisperDAL) tablet 2 [...] mL 250 mL intravenous Q15 Min PRN docusate sodium (COLACE) capsule 100 mg 100 mg oral BID PRN glucagon injection 1 mg 1 mg intramuscular Q30 Min PRN influenza quadrivalent [id number] (FLUZONE HIGH DOSE) 240 mcg/0.7 mL vaccine (HIGH DOSE age 65 yearsand up) 0.7 mL 0.7 mL intramuscular During hospitalization ondansetron ODT (ZOFRAN-ODT) disintegrating tablet 4 mg 4 mg oral Q6H PRN Or ondansetron (ZOFRAN) injection 4 mg 4 mg intravenous Q6H PRN Review of Systems 11 system review was obtained all pertinent positives and negatives have been listed in the HPI. Data Recent Labs Lab Units 08/02/22 11408/02/22 0808/02/22 0542 08/01/22 18408/01/22 1100 SODIUM mmol/L -- -- 141 -- 139 POTASSIUM PLASMA mmol/L -- -- 4.3 -- 4.6 CHLORIDE mmol/L -- -- 106 -- 102 CO2 mmol/L -- -- 26 -- 25 ANIONGAP mmol/L -- -- 9 -- 12 GLUCOSE mg/dL -- -- 222* -- 242* POC GLUCOSE MONITOR mg/dL 236* 305* -- < > -- BUN SERUM mg/dL -- -- 47* -- 45* CREATININE mg/dL -- -- 1.82* -- 1.96* CALCIUM mg/dL -- -- 9.2 -- 9.3 ALBUMIN g/dL -- -- -- -- 3.4* ALK PHOS Units/L -- -- -- -- 158* ALT Units/L -- -- -- -- 73* AST Units/L -- -- -- -- 65* BILIRUBIN TOTAL mg/dL -- -- -- -- <0.2 < > = values in this interval not displayed. Recent Labs Lab Units 08/02/22 11408/02/22 0808/02/22 0542 08/01/22 1841 08/01/22 1100 SODIUM mmol/L -- -- 141 -- 139 POTASSIUM PLASMA mmol/L -- -- 4.3 -- 4.6 CHLORIDE mmol/L -- -- 106 -- 102 CO2 mmol/L -- -- 26 -- 25 BUN SERUM mg/dL -- -- 47* -- 45* CREATININE mg/dL -- -- 1.82* -- 1.96* [id number] mL/min/1.73 m2 -- -- 29 -- 27 GLUCOSE mg/dL -- -- 222* -- 242* POC GLUCOSE MONITOR mg/dL 236* < > -- < > -- CALCIUM mg/dL -- -- 9.2 -- 9.3 ALBUMIN g/dL -- -- -- -- 3.4* < > = values in this interval not displayed. Recent Labs Lab Units 08/02/22 0542 08/01/22 1100 WBC K/cumm 9.9 9.5 HEMOGLOBIN g/dL 9.0* 9.2* HEMATOCRIT % 28.3* 29.0* PLATELETS K/cumm 302 316 Lab Results Lab Value Date/Time TROPONINT <0.01 01/19/20172035 Exam Patient Vitals for the past 24 hrs: BP Temp Temp src Pulse Resp SpO2 Height Weight 08/02/22 0752 165/61 36.6 ??C (97.8 ??F) Oral 75 18 97 % -- -- 08/02/22 0015 -- -- -- -- -- -- 157.5 cm (5' 2.01 ) 72.6 kg (160 lb 0.9 oz) 08/01/22 2357 (!) 174/76 36.9 ??C (98.4 ??F) Oral 78 16 97 % -- -- 08/01/22 2240 107/64 -- -- 74 16 96 % -- -- General: in no apparent distress Neuro: Alert and oriented x 3, moves all extremities well HEENT: normocephalic, atraumatic, thyroid not enlarged. I do not appreciate JVD. Neck: There are nocarotid bruits. Lungs: symmetric, unlabored, clear to auscultation bilaterally Heart: S1,S2, regular rate & rhythm, no murmurs, rubs, or gallops Abdomen: soft, non-tender, non-distended, bowel sounds present Extremities: no LE edema, palpable peripheral pulses BL ECHO 06/20/22 Interpretation Summary Ejection Fraction = 60-65%. The left atrium is mildly dilated. There is trace tricuspid regurgitation. No aortic stenosis . Trace pulmonic valvular regurgitation. Anterior pericardial fat pad noted. Assessment and Plan Weakness/Fatigue Hx dementia -+ UTI on abx -per primary Elevated troponin -Mildly elevated without acute rise in delta, appears chronic -proBNP 125, CXR no acute disease -No ekg for review, will check ekg and review -No complaints of dyspnea or angina -Can follow up as outpatient for nuclear stress test, if stays through the weekend can be done as inpatient. Hypertension -Above goal, Cr at baseline, resume losartan Hyperlipidemia -on statin Diabetes -A1C 8.3 -SSI -Benefit from diabetic education DVT LLE on eliquis Anemia Hgb 9.0, normocytic CKD -egfr 29, Cr. 1.82. At baseline -resume losartan I anticipate greater than 2 midnights stay due to management of the issues noted above. Thank you for allowing us to participate in the care of this patient. We will continue to follow. If you have any questions, please don't hesitate to call. ANALI [facility] 08/02/2022 11:48 AM CC: Cosigned by Meghann Coleman MD at 08/02/2022 12:13 PM INFORMATICS CONSULTANT RMATICS CONSULTANT RMATICS CONSULTANT Associated attestation - Meghann Coleman MD - 08/02/2022 12:13 PM INFORMATICS CONSULTANT Patient seen Agree with above documented in this encounter Nursing Notes * Daisy Woodall, ALIREZA - 08/04/2022 12:45 PM CST Consult received for Diabetes Nurse Educator: Blood Glucose Monitoring Pre-Education Assessment Visit Type: Initial Introduction: arranged meeting with patient's caregiver/daughterAreli. ID verified, Alert &Oriented x2 per patient's primary nurse, patient/family receptive to educational opportunity. Pt had 2 visitors at bedside, son and daughter. Family History: yes When Diagnosed: approx 20+ years ago Provider: Medical/Target Aircraft Controller/PCP Treatment Prior to Admission: Insulin, Blood glucose monitoring (CGM) Learning Barriers: pt's orientation status, history of dementia Knowledge Base: experienced (caregivers) Hemoglobin A1c: 8.3% (Reviewed what is A1c, current A1C value, ADA recommended target guidelines, goal of <7%. Copy of lab and current blood sugar trends provided) Home glucose testing frequency: at least 4 times/day (pt uses [employer] Madhav CGM) Exercise habits: not currently Hypoglycemic episodes: family denies patient having hypoglycemic episodes Home Supplies: provided glucometer and supplies for back up glucometer (Provided patient with free Easy Touch glucometer, 100 test strips, 100 lancets) Demonstrated fingerstick blood glucose assessment. Patient's family declined opportunity to providerepeat demonstration as they have used similar glucometers previously. Teaching included handwashing prior to inserting glucometer test strip, following prompt on screen, inserting lancet into lancetdevice, cleaning skin with alcohol prep pad, identifying area to perform fingerstick/rotation, lancet disposal, reading results and importance of documenting results to provide to PCP/Endocrinologistlater for medication adjustments. Hyper/hypoglycemia numbers discussed. Patient's family reports being competent with fingerstick blood glucose assessment. Diabetes Management Education Provided: Handouts: Important Diabetes [...] grams. Educating to consume Men:60-75g per meal, [id number] per meal, three meals/day). Injectable Medications for Diabetes (discusses onset, peak, duration of insulin; insulin storage; importance of site rotation; example of sliding scale) Inpatient Recommendations: Primary nurse to reinforce with patient: Consistent Carbohydrate Diet, Carbohydrate counting Consults made: Dietitian (Inpatient dietitian consulted and following patient. Referrals provided to Outpatient Registered Dietitian nutrition counseling and [id number] resource) Discharge Recommendations: Glucometer: Easy Touch glucometer (provided for back up) Test Strips: 100 Easy Touch test strips (provided ) Lancets: 100 Lancets (provided) Blood Glucose Testing Regimen: 4 times per day, before meals and bedtime (as directed by PCP) Diabetes/Education Follow up: Primary Care Provider (referral provided to [facility],Better [facility]-diabetes) Outcome: Pt/family was accepting of diabetes education. Educated patient/family on what is A1c, current value, goal of less than 7%, ranges of A1c, provided printouts of recent glucose trends and recent A1c. Provided, reviewed, discussed diabetic handouts as mentioned above. Reviewed carb counting extensively. Encouraged pt to never skip meals, eating 3 meals per day. Educated importance of maintaining suggested carbs per meal, never skipping if patient consumed over during previous meal. Reviewed portion sizes using measuring cups. Provided and reviewed Easy Touch glucometer, supplies, and refill information. Educated importance of reducing A1c to prevent diabetes related complications. My contact information was provided. Patient verbalized understanding of education provided. Encouraged patient to please contact me with any diabetes related questions. BEKA Austin, Nurse Credit Report Checker RMATICS CONSULTANT RMATICS CONSULTANT documented in this encounter ED Notes * Anam Ayers, - 08/01/2022 5:59 PM CST HPI Chief Complaint Patient presents with Altered Mental Status HPI 5:59 PM - Sixto Chakraborty is a 71 y.o. female patient presenting to the ED via POV from PT appointmenttoday, complaining of generalized weakness and fatigue, low blood pressure noted at PT session. Family at bedside report that the patient has some dementia at baseline but seemed a little off from baseline today. No history of fever. No vomiting or nausea. She denies headache or vision changes No shortness of breath or chest pain Denies abdominal pain Patient History: Past Medical History: Diagnosis Date [...] file Review of Systems Review of Systems All other systems reviewed and are negative. Physical Exam ED Triage Vitals [08/01/22 1038] Temp Pulse Resp BP SpO2 36.8 ??C (98.3 ??F) 73 16 129/57 97 % Temp src Heart Rate Source Patient Position BP Location FiO2 (%) Tympanic Monitor Sitting Left arm -- Height Height Method Weight Weight Method 1.575 m (5' 2 ) Stated 72.6 kg (160 lb) Stated Physical Exam Vitals and nursing note reviewed. Constitutional: General: She is in acute distress. Appearance: She is well-developed. She is ill-appearing. She is not toxic- appearing or diaphoretic. HENT: Head: Normocephalic and atraumatic. Right Ear: External ear normal. Left Ear: External ear normal. Mouth/Throat: Mouth: Mucous membranes are dry. Eyes: Extraocular Movements: Extraocular movements intact. Conjunctiva/sclera: Conjunctivae normal. Pupils: Pupils are equal, round, and reactive to light. Cardiovascular: Rate and Rhythm: Normal rate and regular rhythm. Pulses: Normal pulses. Heart sounds: No murmur heard. Pulmonary: Effort: Pulmonary effort is normal. No respiratory distress. Breath sounds: Normal breath sounds. Abdominal: General: Bowel sounds are normal. There is no distension. Palpations: Abdomen is soft. Tenderness: There is no abdominal tenderness. There is no right CVA tenderness or left CVA tenderness. Musculoskeletal: General: No swelling. Normal range of [...] and Affect: Mood normal. Behavior: Behavior normal. Procedures [facility] Labs Reviewed URINALYSIS AND REFLEX TO MICROSCOPIC AND CULTURE - Abnormal Result Value Color, ur Yellow Clarity, ur Cloudy (*) Specific gravity, ur 1.009 pH, urine 6.0 Protein, ur ql 2+ (*) Glucose, ur ql Trace (*) Ketones, ur Negative Bilirubin, ur Negative Blood, ur 1+ (*) Urobilinogen, ur 0.2 Nitrite, ur Negative Leukocyte esterase, ur 2+ [...] for uric acid stone formation. Source: [facility].Last revised 07-02-2017 CBC WITH AUTO DIFFERENTIAL - Abnormal WBC 9.5 Hgb 9.2 (*) Hct 29.0 (*) Plt 316 MPV 10.7 RBC 3.08 (*) MCV 94.2 MCH 29.9 MCHC 31.7 (*) RDW CV 14.8 RDW SD 50.7 (*) NRBC abs 0.00 COMPREHENSIVE METABOLIC PANEL - Abnormal Sodium 139 Potassium, pl 4.6 Chloride 102 CO2 25 Anion gap 12 BUN 45 (*) Creatinine 1.96 (*) Glucose 242 (*) Calcium 9.3 Bilirubin, total <0.2 Protein, pl 7.2 Albumin 3.4 (*) Alk phos 158 (*) ALT 73 (*) AST 65 (*) TROPONIN T HIGH-SENSITIVITY SERIES (BASELINE, 2HR, 4HR, 6HR) - Abnormal Trop T hs 38 (*) TROPONIN T HIGH-SENSITIVITY 2-HOUR - Abnormal Trop T hs 32 (*) Trop T hs delta -6 Trop T hs interp Equivocal TROPONIN T HIGH-SENSITIVITY 4-HR - Abnormal Trop T hs 29 (*) Trop T hs delta -9 Trop T hs interp Equivocal URINALYSIS, MICROSCOPIC ONLY - Abnormal WBC, ur >50 (*) RBC, ur 3-5 (*) Epithelial cells, squamous, ur 1-5 Bacteria, ur 1+ (*) Mucous, ur Present (*) Culture Reflex Comment Reflex to urine culture will be performed. INFLUENZA A/B, RSV, AND COVID-19 PCR COVID-19 RNA Negative Influenza A RNA Negative Influenza B RNA Negative RSV RNA Negative Narrative: Is the Patient experiencing symptoms consistent with COVID?->Yes Date of Symptom Onset->07/31/22 Reason for testing?->Bed placement or semi-private room URINE CULTURE BLOOD CULTURE BLOOD CULTURE DIFFERENTIAL AUTO Neutrophil abs 6.4 Imm gran abs 0.0 Lymphocyte abs 2.2 Monocyte abs 0.6 Eosinophil abs 0.1 Basophil abs 0.0 Neutrophil pct 68.0 Imm gran pct 0.3 Lymphocyte pct 23.4 Monocyte pct 6.6 Eosinophil pct 1.3 Basophil pct 0.4 EGFR eGFR 27 SEPSIS LACTATE WITH REFLEX Sepsis Lactate 1.6 TROPONIN T HIGH-SENSITIVITY 6-HOUR XR Chest 1 Vw Portable Final Result No active pulmonary disease. Electronically signed by: Alpesh Jaquez M.D. BP 129/57 (BP Location: Left arm, Patient Position: Sitting) Pulse 73 Temp 36.8 ??C (98.3 ??F) (Tympanic) Resp 16 Ht 157.5 cm (5' 2 ) Wt 72.6 kg (160 lb) SpO2 97% BMI 29.26 kg/m?? MDM Amount and/or Complexity of Data Reviewed Clinical lab tests: reviewed and ordered Tests in the radiology section of CPT??: ordered and reviewed Tests in the medicine section of CPT??: ordered and reviewed Decide to obtain previous medical records or to obtain history from someone other than the patient:yes Obtain history from someone other than the patient: (Daughter at bedside) Review and summarize past medical records: yes Discuss the patient with other providers: yes Independent visualization of images, tracings, or specimens: yes Risk of Complications, Morbidity, and/or Mortality Presenting problems: moderate Diagnostic procedures: moderate Management options: moderate Differential diagnosis includes but is not limited to STEFANO, UTI, NSTEMI, electrolyte disturbance 6:05 p.m. Patient will be admitted for further management of her UTI and weakness. Admission is to [facility] hospitalist Service, Dr. Schmidt. I discussed the patient's clinical findings and presentation directly with JARAD Donaldson, accepting admission on behalf of Dr. Schmidt. Impression: Urinary tract infection without hematuria, site unspecified Weakness Anam Ayesr DO 08/01/221811 RMATICS CONSULTANT * Sukhdev Valencia RN - 08/01/2022 10:43 AM CST Pt to ED from home for AMS/fatigue onset today during PT appt. Pt has dementia. Pt denies pain, family member reports pt has chronic back and leg pain. RMATICS CONSULTANT documented in this encounter Miscellaneous Notes * Plan of Care - Jane Jackson RN - 08/07/2022 5:59 PM INFORMATICS CONSULTANT Problem: Lack of Knowledge: Goal: Ability to [...] needs will improve Outcome: Adequate for Discharge Goals: Clinical Goals for the Shift: admin abx, stable vitals/labs, comfort & safety Summary: Pt discharging home with daughter. RMATICS CONSULTANT * Plan of Care - Laura Cabrera RN - 08/07/2022 4:22 AM CST Goals: Clinical Goals for the Shift: Stable vital, Safety, Comfort Summary: Clinical Goals for the Shift: Stable vital, Safety, Comfort Problem: Lack of Knowledge: Goal: Ability to [...] discharge needs will improve Outcome: Progressing Problem: Safety: Goal: Will remain free from falls and injury in home environment Outcome: Not Progressing RMATICS CONSULTANT * Plan of Care - Leslie Milligan RN - 08/06/2022 4:47 AM CST Goals: Clinical Goals for the Shift: safety and comfot, free from falls, administer medications, telemetry, vital signs, poct glucose, rest Summary: Reminded patient to call for assistance to promote safety and prevent falls. Patient remained free from falls throughout shift. Administered medications to patient per orders. Monitored patient's vital signs per orders. Monitored patient's telemetry per orders. Monitored patient's poct glucose per orders. Promoted patient rest. Patient is currently sleeping and stable. Will continue to monitor. RMATICS CONSULTANT * Plan of Care - Leslie Aquino RN - 08/05/2022 3:02 PM CST Problem: Lack of Knowledge: Goal: Ability to [...] Goals: Clinical Goals for the Shift: monitor tele, pt and family education, stress test, mon itor bg Summary: pt still has tele on. PT had stress test done this morning. No family came to visit pt today, so education with them was not possible. PT still has been experiencing high blood sugars even on an NPO diet. Will continue to teach the pt how to manage dm. RMATICS CONSULTANT * Plan of Care - Carolin Herr RN - 08/05/2022 12:14 PM CST CM Initial Assessment Interview Note Information Obtained From: Adult child Name: Areli Gayle (daughter) [phone] (08/05/22 1207) Admission Source: ED Impression: weakness Plan Includes: PT/OT, c/s Cardio, Stress Test Primary Source of Transportation: patient daughter drives Does the patient need discharge transport arranged?: No Has discharge transport been arranged?: No (08/01/22 1242) Health Insurance Coverage: Medicare A and B Prescription Coverage: yes Pharmacy: [id number] - [place] - [address] AT [address] [place] [address] Primary Care Provider: Cherelle Corcoran MD Prior to Admission: Primary Caregiver: Family Who does the patient or legal guardian want to receive education instruction and discharge plans for after care assistance?: Name Caregiver Name: Areli Gayle (daughter) [phone] Support System: Children Support system contact info (name, phone, availablity): Areli Gayle (daughter) [phone] Home Care Services: No Durable Medical Equipment: Other (Comment), Walker (wheeled), Shower chair (side rails) Living Arrangements: Children Type of Residence: Private residence Steps in home? : No steps inside or outside (08/05/221206) SDOH: Transportation: In the past 12 months, has lack of transportation kept you from medical appointments or from getting medications?: No In the past 12 months, has lack of transportation kept you from meetings, work, or from getting things needed for daily living?: No (08/05/221208) Financial Resource: How hard is it for you to pay for the very basics like food, housing, medical care, and heating?: Not hard at all (08/05/221208) Housing: Social Connections: In a typical week, how many times do you talk on the phone with family, friends, or neighbors?: More than three times a week How often do you get together with friends or relatives?: More than three times a week How often do you attend bahai or confucianist services?: Never Do you belong to any clubs or organizations such as bahai groups, unions, fraternal or athletic groups, or school groups?: No How often do you attend meetings of the clubs or organizations you belong to?: Never Are you , , , , never , or living with a partner?: (08/05/221208) Food Insecurity: Within the past 12 months, you worried that your food would run out before you got the money to buymore.: Never true Within the past 12 months, the food you bought just didn't last and you didn't have money to get more.: Never true (08/05/221208) Alcohol Use: PHQ Screening Potential discharge needs include: No anticipated discharge needs identified. Dialysis: N/A Behavioral Health Services: Behavioral Health Services: No (08/05/221206) Patient expects to be Discharged to: Private residence, (08/05/22 120) Additional Information: CM called patient daughter Areli ([phone]) to discuss plan of care, anticipated discharge date, and goals for discharge. Demographics verified via face sheet. Patient lives at home with her daughter Areli who is named as patient ambulatory care coordinator and primary medicare nurse. There is 1 step into the house. Patient receives SSI and daughter does not express any financial concerns. Patient has a bed rail on her bed, uses a walker and shower chair at home. Patient uses [facility] [employer] and is able to afford her medications. Patient daughter provides her transportation. 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 CM RN explained patient daughter patient can not go to outpatient therapy and receive HHC. SDOH completed. No anticipated discharge needs identified. CM will continue to follow and assist [...] Collaboration with patient, MD, direct care nurse, Bridge Tender, and other members of the health care team to assure needed interventions completed. 2. Return patient to optimal level of self-care post discharge. 3. Inclined Railway Operator will follow for Discharge Planning - interventions as needed 4. Anticipated level of care at discharge 5. Planned Discharge Disposition Carolin Herr RN Case Manager [phone] RMATICS CONSULTANT * Plan of Care - Leslie Milligan RN - 08/05/2022 4:11 AM CST Goals: Clinical Goals for the Shift: safety and comfort, free from falls, administer medications, npo at midnight, vital signs, telemetry, poct glucose, rest Summary: Reminded patient to call for assistance to promote safety and prevent falls. Patient remained free from falls throughout shift. Administered medications to patient per orders. Monitored patient's vital signs per orders. Monitored patient's telemetry per orders. Monitored patient's poct glucose per orders. Patient NPO since midnight. Promoted patient rest. Patient is currently sleeping and stable. Will continue to monitor. RMATICS CONSULTANT * Plan of Care - Leslie Aquino RN - 08/04/2022 4:01 PM CST Problem: Lack of Knowledge: Goal: Ability to [...] Clinical Goals for the Shift: safety, comfort, monitor blood sugar, educate pt on mangming blood sugar Summary: PT seems to be a little more drowsy today, however; pt was very active for the past coupleof days. Pt did work with PT today but required more assistance than normal. Pt is scheduled to getcardiac stress test tomorrow and will be npo at midnight. PT's blood sugars have improved since yesterday. Pt and family members met with the prosthodontist/educator today, and felt more comfortable with diagnosis. RMATICS CONSULTANT * Plan of Care - Abram Hampton - 08/04/2022 4:13 AM CST Goals: Clinical Goals for the Shift: safety, comfort, stable BG and vitals Summary: RMATICS CONSULTANT * Plan of Care - Leslie Aquino RN - 08/03/2022 3:23 PM CST Problem: Lack of Knowledge: Goal: Ability to [...] Progressing Goals: Clinical Goals for the Shift: Keep pt free from falls, improve mobility, monitr vs. Summary: PT has dementia w/ short term memory problems. Nursing has reoriented the pt every time they were in the room. PT will verbalize understanding, but will forget soon after. PT has bed exit and chair alarm for that reason. RMATICS CONSULTANT * Plan of Care - Abram Hampton - 08/03/2022 3:48 AM CST Goals: Clinical Goals for the Shift: (safety, comfort, reorientation to sorrounding, stable vitals and BG) Summary: Problem: Lack of Knowledge: Goal: Ability to [...] of discharge needs will improve Outcome: Progressing RMATICS CONSULTANT * Plan of Care - Robert Gómez RN - 08/02/2022 11:28 AM CST Goals: Clinical Goals for the Shift: Admission, stable vitals and BG,safety, comfort Problem: Lack of Knowledge: Goal: Ability to [...] improve to fullest extent possible Outcome: Progressing RMATICS CONSULTANT * Plan of Care - Abram Hampton - 08/02/2022 1:05 AM CST Goals: Clinical Goals for the Shift: Admission, stable vitals and BG,safety, comfort Summary: RMATICS CONSULTANT * ED Triage Provider Note - Honey Jackson PA - 08/01/2022 10:40 AM INFORMATICS CONSULTANT Subjective: Sixto Chakraborty is a 71 y.o. female scchizophenia, DM2, GERD, CKD, who presents to the ED reporting since waking up she has been weak, tired and falling back to sleep. Denies headache, chestpain, SOB, focal weakness. Objective: Blood pressure 129/57, pulse 73, temperature 36.8 ??C (98.3 ??F), temperature source Tympanic, resp. rate 16, height 157.5 cm (5' 2 ), weight 72.6 kg (160 lb), SpO2 97 %. General: Body mass index is 29.26 kg/m??., tired, slow to respond Cardio: RRR Pulm: mild tachypnea Abd: soft, non-tender Extremities: moving all extremities, no significant LE edema Neuro: symmetric, slow movement. Alert to self and location. Does not know time, family reports this is baseline A/P: - Labs: - Imaging: CXR/EKG This is a medical screening assessment for the pt's initial workup to begin the process. ED provider to re-assess, review workup/order additional testing and set disposition. RMATICS CONSULTANT documented in this encounter Plan of Treatment Upcoming Encounters Date Type Department Care Team (Latest Contact Info) Description 07/13/2024 9:00 AM INFORMATICS CONSULTANT Hospital Encounter [facility] [address] [place] [address] Jaya Grire MD [address] [facility] [address] [address] [place] [address] 07/13/2024 9:00 AM INFORMATICS CONSULTANT - 07/13/2024 9:30 AM INFORMATICS CONSULTANT Surgery [facility] [address] [place] [address] Jaya Grier MD [address] [facility] [address] [place] [address] ESOPHAGOGASTRODUODENOSCOPY Scheduled Orders Name Type Priority Associated Diagnoses Orde r Schedule ECG 12 lead ECG STAT Once for 1 Oc currences starting 08/01/2022 until 08/01/2022 Scheduled Procedures Name Priority Associated Diagnoses Date/Ti me ESOPHAGOGASTRODUODENOSCOPY Anemia, unspecified type Gastritis without bleeding, unspecified chronicity, unspecified gastritis type 07/13/2024 9:00 AM INFORMATICS CONSULTANT COLONOSCOPY Iron deficiency anemia due to chronic blood loss documented as of this encounter Procedures Procedure Name Priority Date/Time Associated Diagnosis Comments POCT GLUCOSE DEVICE Routine 08/07/2022 5 :13 PM INFORMATICS CONSULTANT POCT GLUCOSE DEVICE Routine 08/07/2022 1 2:35 PM INFORMATICS CONSULTANT EGFR Routine 08/07/2022 10:07 AM INFORMATICS CONSULTANT DIFFERENTIAL AUTO Routine 08/07/2022 10: 07 AM INFORMATICS CONSULTANT CBC WITH AUTO DIFFERENTIAL Routine 08/07/2022 10:07 AM INFORMATICS CONSULTANT BASIC METABOLIC PANEL Routine 08/07/2022 10:07 AM INFORMATICS CONSULTANT POCT GLUCOSE DEVICE Routine 08/07/2022 7 :32 AM INFORMATICS CONSULTANT POCT GLUCOSE DEVICE Routine 08/07/2022 2 :39 AM INFORMATICS CONSULTANT POCT GLUCOSE DEVICE Routine 08/06/2022 9 :16 PM INFORMATICS CONSULTANT POCT GLUCOSE DEVICE Routine 08/06/2022 5 :42 PM INFORMATICS CONSULTANT POCT GLUCOSE DEVICE Routine 08/06/2022 1 2:29 PM INFORMATICS CONSULTANT POCT GLUCOSE DEVICE Routine 08/06/2022 7 :48 AM INFORMATICS CONSULTANT EGFR Routine 08/06/2022 6:06 AM INFORMATICS CONSULTANT DIFFERENTIAL AUTO Routine 08/06/2022 6:0 6 AM INFORMATICS CONSULTANT CBC WITH AUTO DIFFERENTIAL Routine 08/06/2022 6:06 AM INFORMATICS CONSULTANT BASIC METABOLIC PANEL Routine 08/06/2022 6:06 AM INFORMATICS CONSULTANT POCT GLUCOSE DEVICE Routine 08/06/2022 2 :40 AM INFORMATICS CONSULTANT POCT GLUCOSE DEVICE Routine 08/05/2022 8 :41 PM INFORMATICS CONSULTANT POCT GLUCOSE DEVICE Routine 08/05/2022 5 :08 PM INFORMATICS CONSULTANT NM MPI SPECT (REST AND/OR STRESS) MULTIPLE STUDIES IP Routine 08/05/2022 1:21 PM INFORMATICS CONSULTANT STRESS TEST FOR DUAL READ IP Routine 08/05/2022 1:21 PM INFORMATICS CONSULTANT POCT GLUCOSE DEVICE Routine 08/05/2022 1 2:25 PM INFORMATICS CONSULTANT POCT GLUCOSE DEVICE Routine 08/05/2022 7 :41 AM INFORMATICS CONSULTANT POCT GLUCOSE DEVICE Routine 08/05/2022 1 :47 AM INFORMATICS CONSULTANT POCT GLUCOSE DEVICE Routine 08/04/2022 9 :27 PM INFORMATICS CONSULTANT POCT GLUCOSE DEVICE Routine 08/04/2022 5 :08 PM INFORMATICS CONSULTANT POCT GLUCOSE DEVICE Routine 08/04/2022 1 2:06 PM INFORMATICS CONSULTANT POCT GLUCOSE DEVICE Routine 08/04/2022 7 :25 AM INFORMATICS CONSULTANT POCT GLUCOSE DEVICE Routine 08/04/2022 2 :51 AM INFORMATICS CONSULTANT POCT GLUCOSE DEVICE Routine 08/03/2022 7 :48 PM INFORMATICS CONSULTANT POCT GLUCOSE DEVICE Routine 08/03/2022 4 :18 PM INFORMATICS CONSULTANT POCT GLUCOSE DEVICE Routine 08/03/2022 1 2:02 PM INFORMATICS CONSULTANT POCT GLUCOSE DEVICE Routine 08/03/2022 7 :48 AM INFORMATICS CONSULTANT EGFR Routine 08/03/2022 6:35 AM INFORMATICS CONSULTANT DIFFERENTIAL AUTO Routine 08/03/2022 6:3 5 AM INFORMATICS CONSULTANT CBC WITH AUTO DIFFERENTIAL Routine 08/03/2022 6:35 AM INFORMATICS CONSULTANT BASIC METABOLIC PANEL Routine 08/03/2022 6:35 AM INFORMATICS CONSULTANT POCT GLUCOSE DEVICE Routine 08/03/2022 2 :10 AM INFORMATICS CONSULTANT POCT GLUCOSE DEVICE Routine 08/02/2022 7 :50 PM INFORMATICS CONSULTANT POCT GLUCOSE DEVICE Routine 08/02/2022 4 :24 PM INFORMATICS CONSULTANT ECG 12-LEAD Routine 08/02/2022 12:26 PM INFORMATICS CONSULTANT POCT GLUCOSE DEVICE Routine 08/02/2022 1 1:42 AM INFORMATICS CONSULTANT POCT GLUCOSE DEVICE Routine 08/02/2022 8 :26 AM INFORMATICS CONSULTANT EGFR Routine 08/02/2022 5:42 AM INFORMATICS CONSULTANT DIFFERENTIAL AUTO Routine 08/02/2022 5:4 2 AM INFORMATICS CONSULTANT CBC WITH AUTO DIFFERENTIAL Routine 08/02/2022 5:42 AM INFORMATICS CONSULTANT HEMOGLOBIN A1C Routine 08/02/2022 5:42 AM INFORMATICS CONSULTANT BASIC METABOLIC PANEL Routine 08/02/2022 5:42 AM INFORMATICS CONSULTANT POCT GLUCOSE DEVICE Routine 08/02/2022 2 :22 AM INFORMATICS CONSULTANT POCT GLUCOSE DEVICE Routine 08/01/2022 1 0:33 PM INFORMATICS CONSULTANT POCT GLUCOSE DEVICE Routine 08/01/2022 6 :41 PM INFORMATICS CONSULTANT TROPONIN T HIGH-SENSITIVITY 6-HOUR Timed 08/01/2022 5:17 PM INFORMATICS CONSULTANT SEPSIS LACTATE WITH REFLEX STAT 08/01/2022 5:17 PM INFORMATICS CONSULTANT BLOOD CULTURE STAT 08/01/2022 5:17 PM INFORMATICS CONSULTANT BLOOD CULTURE STAT 08/01/2022 5:17 PM INFORMATICS CONSULTANT XR CHEST 1 VIEW ED 08/01/2022 4:30 PM INFORMATICS CONSULTANT TROPONIN T HIGH-SENSITIVITY 4-HR Timed 08/01/2022 3:43 PM INFORMATICS CONSULTANT TROPONIN T HIGH-SENSITIVITY 2-HOUR Timed 08/01/2022 1:04 PM INFORMATICS CONSULTANT INFLUENZA A/B, RSV, AND COVID-19 PCR Routine 08/01/2022 12:55 PM INFORMATICS CONSULTANT URINALYSIS AND REFLEX TO MICROSCOPIC AND CULTURE STAT 08/01/2022 12:52 PM INFORMATICS CONSULTANT URINALYSIS, MICROSCOPIC ONLY STAT 08/01/2022 12:52 PM INFORMATICS CONSULTANT URINE CULTURE STAT 08/01/2022 12:52 PM INFORMATICS CONSULTANT TROPONIN T HIGH-SENSITIVITY SERIES (BASELINE, 2HR, 4HR, 6HR) STAT 08/01/2022 11:00 AM INFORMATICS CONSULTANT EGFR STAT 08/01/2022 11:00 AM INFORMATICS CONSULTANT DIFFERENTIAL AUTO STAT 08/01/2022 11: 00 AM INFORMATICS CONSULTANT CBC WITH AUTO DIFFERENTIAL STAT 08/01/2022 11:00 AM INFORMATICS CONSULTANT COMPREHENSIVE METABOLIC PANEL STAT 08/01/2022 11:00 AM INFORMATICS CONSULTANT documented in this encounter Results * POCT glucose (08/07/2022 5:13 PM INFORMATICS CONSULTANT) Glucose, POC 159 70 - 199 mg/dL [facility] Blood 08/07/2022 5:13 PM INFORMATICS CONSULTANT 08/07/2022 5:13 PM INFORMATICS CONSULTANT Lupillo Doe MD LAB POCT ORDERABLES - D EVICE Final Result Performing Organization Address [facility] Co de Phone Number [facility] [address] [address] [facility] [place] [address] * POCT glucose (08/07/2022 12:35 PM INFORMATICS CONSULTANT) Pathologist [facility] Glucose, POC 180 70 - 199 mg/dL [facility] Blood 08/07/2022 12:3 5 PM INFORMATICS CONSULTANT 08/07/2022 12:35 PM INFORMATICS CONSULTANT Lupillo Doe MD LAB POCT ORDERABLES - D EVICE Final Result Performing Organization Address [facility] de Phone Number [facility] [address] [address] [facility] [place] [address] * eGFR (08/07/2022 10:07 AM INFORMATICS CONSULTANT) eGFR 23 mL/min/1. 73 m2 [facility] Comment: Interpretive Data Reference Interval Normal ?>/= [...] interpretive data was last reviewed 2021. Blood 08/07/2022 10:0 7 AM INFORMATICS CONSULTANT 08/07/2022 10:18 AM INFORMATICS CONSULTANT Marie Donaldson NP LAB BLOOD ORDERABLES Final Result [facility] [address] [place] [address] * Differential, auto (08/07/2022 10:07 AM INFORMATICS CONSULTANT) Neutrophil abs 6.0 1.7 - 6.5 K/cumm [facility] Imm gran abs 0.0 0.0 - 0.1 K/cumm [facility] Lymphocyte abs 2.3 0.8 - 3.3 K/cumm [facility] Monocyte abs 0.5 0.2 - 0.8 K/cumm [facility] Eosinophil abs 0.2 0.0 - 0.5 K/cumm [facility] Basophil abs 0.0 0.0 - 0.1 K/cumm [facility] Neutrophil pct 66.6 % [facility] Comment: Interpretive Data Percent cell count reference ranges are not reported, since discordance with absolute values may lead to misinterpretation of CBC data. Current Interpretive Data was last revised on 2017. Imm gran pct 0.2 % [facility] Comment: Interpretive Data Percent cell count reference ranges are not reported, since discordance with absolute values may lead to misinterpretation of CBC data. Current Interpretive Data was last revised on 2017. Lymphocyte pct 25.1 % [facility] Comment: Interpretive Data Percent cell count reference ranges are not reported, since discordance with absolute values may lead to misinterpretation of CBC data. Current Interpretive Data was last revised on 2017. Monocyte pct 5.8 % [facility] Comment: Interpretive Data Percent cell count reference ranges are not reported, since discordance with absolute values may lead to misinterpretation of CBC data. Current Interpretive Data was last revised on 2017. Eosinophil pct 2.0 % [facility] Comment: Interpretive Data Percent cell count reference ranges are not reported, since discordance with absolute values may lead to misinterpretation of CBC data. Current Interpretive Data was last revised on 2017. Basophil pct 0.3 % [facility] Comment: Interpretive Data Percent cell count reference ranges are not reported, since discordance with absolute values may lead to misinterpretation of CBC data. Current Interpretive Data was last revised on 2017. Blood 08/07/2022 10:0 7 AM INFORMATICS CONSULTANT 08/07/2022 10:18 AM INFORMATICS CONSULTANT Marie Donaldson NP LAB BLOOD ORDERABLES Final Result [facility] [address] Department of Laboratories [place], [place] [id number] * (ABNORMAL) Basic metabolic panel (08/07/2022 10:07 AM INFORMATICS CONSULTANT) Sodium 141 135 - 145 mmol/L [facility] Potassium, pl 4.9 3.3 - 4.9 mmol/L [facility] Chloride 106 97 - 110 mmol/L [facility] CO2 22 22 - 32 mmol/L [facility] Anion gap 13 2 - 15 mmol/L [facility] BUN 55(H) 8 - 25 mg/dL [facility] Creatinine 2.24(H) 0.60 - 1.10 mg/dL [facility] Glucose 219(H) 70 - 199 mg/dL [facility] Comment: Interpretive Data Fasting glucose >/= 126 [...] 2022. Calcium 9.6 8.5 - 10.3 mg/dL [facility] Blood 08/07/2022 10:0 7 AM INFORMATICS CONSULTANT 08/07/2022 10:18 AM INFORMATICS CONSULTANT Marie Donaldson NP LAB BLOOD ORDERABLES Final Result [facility] [address] [address] Department [place] [address] * (ABNORMAL) CBC with auto differential (08/07/2022 10:07 AM INFORMATICS CONSULTANT) Pathologist [facility] WBC 9.0 3.8 - 9.9 K/cumm [facility] Hgb 9.2(L) 11.9 - 15.5 g/dL [facility] Hct 29.9(L) 35.6 - 45.5 % [facility] Plt 325 150 - 400 K/cumm [facility] MPV 11.0 9.1 - 12.3 fL [facility] RBC 3.14(L) 3.90 - 5.20 M/cumm [facility] MCV 95.2 81.3 - 96.4 fL [facility] MCH 29.3 27.1 - 33.3 pg [facility] MCHC 30.8(L) 32.3 - 35.7 g/dL [facility] RDW CV 15.0(H) 11.1 - 14.9 % [facility] RDW SD 52.2(H) 35.7 - 48.1 fL [facility] NRBC abs 0.00 0.00 - 0.01 K/cumm [facility] Blood 08/07/2022 10:0 7 AM INFORMATICS CONSULTANT 08/07/2022 10:18 AM INFORMATICS CONSULTANT Marie Donaldson NP LAB BLOOD ORDERABLES Final Result [facility] [address] [address] [facility] [place] [address] * POCT glucose (08/07/2022 7:32 AM INFORMATICS CONSULTANT) Glucose, POC 152 70 - 199 mg/dL [facility] Blood 08/07/2022 7:32 AM INFORMATICS CONSULTANT 08/07/2022 7:32 AM INFORMATICS CONSULTANT Lupillo Doe MD LAB POCT ORDERABLES - D EVICE Final Result Performing Organization Address [facility]/ZIP Co de Phone Number [facility] [address] [address] [facility] [place] [address] * POCT glucose (08/07/2022 2:39 AM INFORMATICS CONSULTANT) Glucose, POC 130 70 - 199 mg/dL [facility] Blood 08/07/2022 2:39 AM INFORMATICS CONSULTANT 08/07/2022 2:39 AM INFORMATICS CONSULTANT Lupillo Doe MD LAB POCT ORDERABLES - D EVICE Final Result Performing Organization Address [facility]/ZIP Co de Phone Number [facility] MCDONNELL [address] [address] [facility] [place] [address] * (ABNORMAL) POCT glucose (08/06/2022 9:16 PM INFORMATICS CONSULTANT) Glucose, POC 208(H) 70 - 199 mg/dL [facility] Blood 08/06/2022 9:16 PM INFORMATICS CONSULTANT 08/06/2022 9:16 PM INFORMATICS CONSULTANT Lupillo Doe MD LAB POCT ORDERABLES - D EVICE Final Result Performing Organization Address City/[facility]/ZIP Co de Phone Number [facility] [address] [address] [facility] [place] [address] * (ABNORMAL) POCT glucose (08/06/2022 5:42 PM INFORMATICS CONSULTANT) Glucose, POC 213(H) 70 - 199 mg/dL [facility] Blood 08/06/2022 5:42 PM INFORMATICS CONSULTANT 08/06/2022 5:42 PM INFORMATICS CONSULTANT Lupillo Doe MD LAB POCT ORDERABLES - D EVICE Final Result Performing Organization Address City/[facility]/ZIP Co de Phone Number N[facility] [address] [address] [facility] [place] [address] * (ABNORMAL) POCT glucose (08/06/2022 12:29 PM INFORMATICS CONSULTANT) Glucose, POC 239(H) 70 - 199 mg/dL [facility] Blood 08/06/2022 12:2 9 PM INFORMATICS CONSULTANT 08/06/2022 12:29 PM INFORMATICS CONSULTANT Lupillo Doe MD LAB POCT ORDERABLES - D EVICE Final Result Performing Organization Address [facility] Co de Phone Number [facility] [address] [address] [facility] [place] [address] * (ABNORMAL) POCT glucose (08/06/2022 7:48 AM INFORMATICS CONSULTANT) Glucose, POC 237(H) 70 - 199 mg/dL [facility] Blood 08/06/2022 7:48 AM INFORMATICS CONSULTANT 08/06/2022 7:48 AM INFORMATICS CONSULTANT Lupillo Doe MD LAB POCT ORDERABLES - D EVICE Final Result Performing Organization Address City/[facility] Co de Phone Number [facility] [address] [address] [facility] [place] [address] * eGFR (08/06/2022 6:06 AM INFORMATICS CONSULTANT) eGFR 27 mL/min/1. 73 m2 [facility] Comment: Interpretive Data Reference Interval Normal ?>/= [...] interpretive data was last reviewed 2021. Blood 08/06/2022 6:06 AM INFORMATICS CONSULTANT 08/06/2022 6:48 AM INFORMATICS CONSULTANT Marie Donaldson NP LAB BLOOD ORDERABLES Final Result [facility] [address] [address] [place] [address] * Differential, auto (08/06/2022 6:06 AM INFORMATICS CONSULTANT) Neutrophil abs 5.9 1.7 - 6.5 K/cumm [facility] Imm gran abs 0.0 0.0 - 0.1 K/cumm [facility] Lymphocyte abs 2.2 0.8 - 3.3 K/cumm [facility] Monocyte abs 0.7 0.2 - 0.8 K/cumm [facility] Eosinophil abs 0.2 0.0 - 0.5 K/cumm [facility] Basophil abs 0.0 0.0 - 0.1 K/cumm [facility] Neutrophil pct 65.5 % [facility] Comment: Interpretive Data Percent cell count reference ranges are not reported, since discordance with absolute values may lead to misinterpretation of CBC data. Current Interpretive Data was last revised on 2017. Imm gran pct 0.3 % [facility] Comment: Interpretive Data Percent cell count reference ranges are not reported, since discordance with absolute values may lead to misinterpretation of CBC data. Current Interpretive Data was last revised on 2017. Lymphocyte pct 24.6 % [facility] Comment: Interpretive Data Percent cell count reference ranges are not reported, since discordance with absolute values may lead to misinterpretation of CBC data. Current Interpretive Data was last revised on 2017. Monocyte pct 7.2 % [facility] Comment: Interpretive Data Percent cell count reference ranges are not reported, since discordance with absolute values may lead to misinterpretation of CBC data. Current Interpretive Data was last revised on 2017. Eosinophil pct 2.2 % [facility] Comment: Interpretive Data Percent cell count reference ranges are not reported, since discordance with absolute values may lead to misinterpretation of CBC data. Current Interpretive Data was last revised on 2017. Basophil pct 0.2 % [facility] Comment: Interpretive Data Percent cell count reference ranges are not reported, since discordance with absolute values may lead to misinterpretation of CBC data. Current Interpretive Data was last revised on 2017. Blood 08/06/2022 6:06 AM INFORMATICS CONSULTANT 08/06/2022 6:47 AM INFORMATICS CONSULTANT us Marie Donaldson NP LAB BLOOD ORDERABLES Final Result [facility] [address] [address] Department [place] [address] * (ABNORMAL) Basic metabolic panel (08/06/2022 6:06 AM INFORMATICS CONSULTANT) Sodium 139 135 - 145 mmol/L [facility] Potassium, pl 4.4 3.3 - 4.9 mmol/L [facility] Chloride 106 97 - 110 mmol/L [facility] CO2 22 22 - 32 mmol/L [facility] Anion gap 11 2 - 15 mmol/L [facility] BUN 54(H) 8 - 25 mg/dL [facility] Creatinine 1.96(H) 0.60 - 1.10 mg/dL [facility] Glucose 242(H) 70 - 199 mg/dL [facility] Comment: [...] Calcium 8.9 8.5 - 10.3 mg/dL [facility] Blood 08/06/2022 6:06 AM INFORMATICS CONSULTANT 08/06/2022 6:48 AM INFORMATICS CONSULTANT Marie Donaldson NP LAB BLOOD ORDERABLES Final Result [facility] [address] [address] [place] [address] * (ABNORMAL) CBC with auto differential (08/06/2022 6:06 AM INFORMATICS CONSULTANT) Pathologist [facility] WBC 9.0 3.8 - 9.9 K/cumm [facility] Hgb 8.0(L) 11.9 - 15.5 g/dL [facility] Hct 26.0(L) 35.6 - 45.5 % [facility] Plt 272 150 - 400 K/cumm [facility] MPV 11.1 9.1 - 12.3 fL [facility] RBC 2.69(L) 3.90 - 5.20 M/cumm [facility] MCV 96.7(H) 81.3 - 96.4 fL [facility] MCH 29.7 27.1 - 33.3 pg [facility] MCHC 30.8(L) 32.3 - 35.7 g/dL [facility] RDW CV 15.0(H) 11.1 - 14.9 % [facility] RDW SD 52.9(H) 35.7 - 48.1 fL [facility] NRBC abs 0.00 0.00 - 0.01 K/cumm [facility] Blood 08/06/2022 6:06 AM INFORMATICS CONSULTANT 08/06/2022 6:47 AM INFORMATICS CONSULTANT Marie Donaldson NP LAB BLOOD ORDERABLES Final Result Performing Organization Address [facility] Co de Phone Number CARLOS ENRIQUEELLEN MCDONNELL [address] [address] [facility] [place] [address] * (ABNORMAL) POCT glucose (08/06/2022 2:40 AM INFORMATICS CONSULTANT) Glucose, POC 200(H) 70 - 199 mg/dL [facility] Blood 08/06/2022 2:40 AM INFORMATICS CONSULTANT 08/06/2022 2:40 AM INFORMATICS CONSULTANT Lupillo Doe MD LAB POCT ORDERABLES - D EVICE Final Result Performing Organization Address [facility] Co de Phone Number CARLOS ENRIQUEELLEN MCDONNELL [address] [address] [facility] [place] [address] * (ABNORMAL) POCT glucose (08/05/2022 8:41 PM INFORMATICS CONSULTANT) Glucose, POC 260(H) 70 - 199 mg/dL [facility] Blood 08/05/2022 8:41 PM INFORMATICS CONSULTANT 08/05/2022 8:41 PM INFORMATICS CONSULTANT Lupillo Doe MD LAB POCT ORDERABLES - D EVICE Final Result Performing Organization Address [facility] Co de Phone Number NILSA [address] [facility] [facility] [place], [place] [id number] * (ABNORMAL) POCT glucose (08/05/2022 5:08 PM INFORMATICS CONSULTANT) Glucose, POC 220(H) 70 - 199 mg/dL NILSA Blood 08/05/2022 5:08 PM INFORMATICS CONSULTANT 08/05/2022 5:08 PM INFORMATICS CONSULTANT us Lupillo Doe MD LAB POCT ORDERABLES - D FELIZICE Final Result NILSA [address] [place] [address] * Stress Test for Myocardial Perfusion (08/05/2022 1:21 PM INFORMATICS CONSULTANT) Anatomical Region Laterality Modality Nuclear Medicine 08/05/2022 7:10 AM INFORMATICS CONSULTANT Narrative 08/06/2022 9:19 [place] [address] MPI Imaging Report Patient Name: SIXTO CHAKRABORTY : 1950 Study Date: 08/05/2022 7:10:00 AM Gender: F Tech: Location: [id number] Ref.Provider: WILLIAM JUARES Height(Cm): BSA: Weight(Kg): Heart Rate: 127 Order Provider: WILLIAM JUARES Procedures: Pharmacologic SPECT Report.: Myocardial perfusion imaging with Tetrofosmin SPECT at rest and post regadenoson (Lexiscan) infusion. Indications: Chest Pain. Findings: Procedure Data: Resting HR 78 bpm. Peak HR: 89 bpm. Predicted Maximal HR 149 bpm. Target HR: 127 bpm. Percent Max Predicted HR Achieved: 59.73 %. Baseline BP: 173/61 mmHg. Peak BP: 128/47 mmHg. Exercise Time: 00:39. Reason for Termination: Lexiscan protocol complete. Supervising Physician: The Supervising Physician is Dr. Lynch. Resting ECG: Normal sinus rhythm. Post Pharm ECG: No diagnostic ST changes. Arrhythmia: No arrhythmias seen. Cardiac Symptoms With Stress: Symptoms with stress were Dyspnea and dizziness. Symptoms were resolved with caffeine. Conclusions: 1. Test negative for pharmacologic induced inducible ishemia by electrocardiographic criteria at maximal work load. 2. SPECT to follow and should be correlated with this study. Electronically Signed By: Ted Lynch 2022-08-06 09:19:04 INFORMATICS CONSULTANT CC: CC: Procedure Note Ted Lynch MD - 08/06/2022 [place] [address] MPI Imaging Report Patient Name: SIXTO CHAKRABORTYPatient ID: [id number] : [id number] Date: 08/05/2022 7:10:00 AM Gender: FAccession #: [id number] Tech: BWLocation: [id number] Ref.Provider: WILLIAM JUARESHeight(Cm): BSA: Weight(Kg): Heart Rate: 127Order Provider: WILLIAM JUARES Procedures: Pharmacologic SPECT Report.: Myocardial perfusion imaging with Tetrofosmin SPECT at rest and postregadenoson (Lexiscan) infusion. Indications: Chest Pain. Findings: Procedure Data: Resting HR 78 bpm. Peak HR: 89 bpm. Predicted Maximal HR 149 bpm. TargetHR: 127 bpm. Percent Max Predicted HR Achieved: 59.73 %. Baseline BP: 173/61 mmHg. PeakBP: 128/47 mmHg. Exercise Time: 00:39. Reason for Termination: Lexiscan protocol complete. Supervising Physician: The Supervising Physician is Dr. Lynch. Resting ECG: Normal sinus rhythm. Post Pharm ECG: No diagnostic ST changes. Arrhythmia: No arrhythmias seen. Cardiac Symptoms With Stress: Symptoms with stress were Dyspnea and dizziness. Symptoms were resolvedwith caffeine. Conclusions: 1. Test negative for pharmacologic induced inducible ishemia byelectrocardiographic criteria at maximal work load. 2. SPECT to follow and should be correlated with this study. Electronically Signed By: Ted Lynch 2022-08-06 09:19:04 INFORMATICS CONSULTANT CC: CC: William Juares MD CV STRESS PROCEDURES Final Resu lt * NM MPI SPECT (Rest and/or Stress) Multiple Studies (08/05/2022 1:21 PM INFORMATICS CONSULTANT) Anatomical Region Laterality Modality Body N/A Nuclear Medicine 08/05/2022 5:56 PM INFORMATICS CONSULTANT Impressions 08/05/2022 6:31 PM INFORMATICS CONSULTANT 1. ??Normal exercise and rest myocardial perfusion. 2. ??Normal left ventricular size and systolic function. 3. ??Mild coronary artery calcifications. Dictated by: David Mccauley MD The radiology attending physician has personally reviewed this study, and had reviewed and/or edited this written report and agrees with it. Electronically signed by: Wally Maxwell M.D. Narrative 08/05/2022 6:31 PM INFORMATICS CONSULTANT EXAMINATION: MYOCARDIAL IMAGING (PHARMACOLOGIC-STRESS AND REST/SPECT/CT) DATE OF STUDY: 08/05/2022 RADIOPHARMACEUTICAL: 11 mCi, 32.1 mCi ??Tc-99m tetrofosmin i.v. HISTORY: 71-year-old female with elevated troponin. ??Diabetic neuropathy, type II diabetes mellitus, hypertension, amputation of right toe, CKD stage IV, left leg DVT. ??Evaluate for ??ischemia and/or myocardial infarction. ??The patient's body mass index (BMI) was 29.3. For details of the electrocardiographic portion of today's exercise stress examination, please refer to the dedicated report on Epic FINDINGS: Both stress and rest imaging were performed, in the following order: rest/stress Stress imaging: An intravenous infusion of Regadenoson (0.4 mg of A2A adenosine receptor agonist Regadenoson (Lexiscan), infused intravenously over approximately 10 seconds, followed approximately after another 20 seconds by tracer infusion) was performed without low level exercise on the date indicated above. ??A complete description of the stress test and electrocardiographic results supervised by staff of the Cardiovascular Division is available in the [facility] electronic medical record. Standard myocardial perfusion images were obtained after tracer injection at the peak effect of the drug. ??Low-dose CT images spanning the heart were obtained for attenuation correction. Rest Imaging: Standard myocardial perfusion images were obtained after resting tracer injection. ??Low-dose CT images spanning the heart were obtained for attenuation correction. COMPARISON: CT chest dated 11/16/2021. The projection images were reviewed for image quality, and reveal no significant artifacts. There is normal distribution of activity in the left and right ventricular myocardium on both stress and rest images. Gated post-stress images demonstrate normal left ventricular volume, normal left ventricular wall motion and ??normal ??ejection fraction of 67 % (normal >45%). ?Additional gated rest images demonstrate normal left ventricular wall motion and a resting left ventricular ejection fraction of 61. Incidental findings on the low-dose CT images: Mild calcification noted within the coronary arteries. ??A 4 mm left lower lobe pulmonary granuloma. Procedure Note Wally Maxwell MD - 08/05/2022 EXAMINATION: MYOCARDIAL IMAGING (PHARMACOLOGIC-STRESS AND REST/SPECT/CT) DATE OF STUDY: 08/05/2022 RADIOPHARMACEUTICAL: 11 mCi, 32.1 mCi Tc-99m tetrofosmin i.v. HISTORY: 71-year-old female with elevated troponin. Diabetic neuropathy, type II diabetes mellitus, hypertension, amputation of right toe, CKD stage IV, left leg DVT. Evaluate for ischemia and/or myocardial infarction. The patient's body mass index (BMI) was 29.3. For details of the electrocardiographic portion of today's exercise stress examination, please refer to the dedicated report on Epic FINDINGS: Both stress and rest imaging were performed, in the following order: rest/stress Stress imaging: An intravenous infusion of Regadenoson (0.4 mg of A2A adenosine receptor agonist Regadenoson (Lexiscan), infused intravenously over approximately 10 seconds, followed approximately after another 20 seconds by tracer infusion) was performed without low level exercise on the date indicated above. A complete description of the stress test and electrocardiographic results supervised by staff of the Cardiovascular Division is available in the [facility] electronic medical record. Standard myocardial perfusion images were obtained after tracer injection at the peak effect of the drug. Low-dose CT images spanning the heart were obtained for attenuation correction. Rest Imaging: Standard myocardial perfusion images were obtained after resting tracer injection. Low-dose CT images spanning the heart were obtained for attenuation correction. COMPARISON: CT chest dated 11/16/2021. The projection images were reviewed for image quality, and reveal no significant artifacts. There is normal distribution of activity in [...] systolic function. 3. Mild coronary artery calcifications. Dictated by: David Mccauley MD The radiology attending physician has personally reviewed this study, and had reviewed and/or edited this written report and agrees with it. Electronically signed by: Wally Maxwell M.D. William Juares MD IMG NM PROCEDURES Final Result * (ABNORMAL) POCT glucose (08/05/2022 12:25 PM INFORMATICS CONSULTANT) Glucose, POC 227(H) 70 - 199 mg/dL [facility] Blood 08/05/2022 12:2 5 PM INFORMATICS CONSULTANT 08/05/2022 12:25 PM INFORMATICS CONSULTANT Lupillo Doe MD LAB POCT ORDERABLES - D EVICE Final Result Performing Organization Address City/[facility] Co de Phone Number NILSA [address] [place] [address] * (ABNORMAL) POCT glucose (08/05/2022 7:41 AM INFORMATICS CONSULTANT) Glucose, POC 233(H) 70 - 199 mg/dL [facility] Blood 08/05/2022 7:41 AM INFORMATICS CONSULTANT 08/05/2022 7:41 AM INFORMATICS CONSULTANT Lupillo Doe MD LAB POCT ORDERABLES - D EVICE Final Result Performing Organization Address City/[facility] Co de Phone Number CARLOS [facility]QUE[facility] [address] [address] [facility] [place] [address] * (ABNORMAL) POCT glucose (08/05/2022 1:47 AM INFORMATICS CONSULTANT) Glucose, POC 210(H) 70 - 199 mg/dL [facility] Blood 08/05/2022 1:47 AM INFORMATICS CONSULTANT 08/05/2022 1:47 AM INFORMATICS CONSULTANT us Lupillo Doe MD LAB POCT ORDERABLES - D EVICE Final Result Performing Organization Address [facility] Co de Phone Number NILSA MCDONNELL [address] [facility] [place] [address] * (ABNORMAL) POCT glucose (08/04/2022 9:27 PM INFORMATICS CONSULTANT) Glucose, POC 274(H) 70 - 199 mg/dL [facility] Blood 08/04/2022 9:27 PM INFORMATICS CONSULTANT 08/04/2022 9:27 PM INFORMATICS CONSULTANT Lupillo Doe MD LAB POCT ORDERABLES - D EVICE Final Result Performing Organization Address [facility] de Phone Number NILSA MCDONNELL [address] [facility] [place] [address] * (ABNORMAL) POCT glucose (08/04/2022 5:08 PM INFORMATICS CONSULTANT) Glucose, POC 277(H) 70 - 199 mg/dL [facility] Blood 08/04/2022 5:08 PM INFORMATICS CONSULTANT 08/04/2022 5:08 PM INFORMATICS CONSULTANT Lupillo Doe MD LAB POCT ORDERABLES - D EVICE Final Result Performing Organization Address [facility] Co de Phone Number NILSA MCDONNELL [address] [place] [address] * POCT glucose (08/04/2022 12:06 PM INFORMATICS CONSULTANT) Glucose, POC 177 70 - 199 mg/dL [facility] Blood 08/04/2022 12:0 6 PM INFORMATICS CONSULTANT 08/04/2022 12:06 PM INFORMATICS CONSULTANT us Lupillo Doe MD LAB POCT ORDERABLES - D EVICE Final Result Performing Organization Address [facility] Co de Phone Number CARLOS ENRIQUEELLEN MCDONNELL [address] [facility] [facility] [place] [address] * POCT glucose (08/04/2022 7:25 AM INFORMATICS CONSULTANT) Glucose, POC 168 70 - 199 mg/dL [facility] Blood 08/04/2022 7:25 AM INFORMATICS CONSULTANT 08/04/2022 7:25 AM INFORMATICS CONSULTANT Lupillo Doe MD LAB POCT ORDERABLES - D EVICE Final Result Performing Organization Address [facility] de Phone Number CARLOS ENRIQUEELLEN MCDONNELL [address] [facility] [place] [address] * (ABNORMAL) POCT glucose (08/04/2022 2:51 AM INFORMATICS CONSULTANT) Glucose, POC 201(H) 70 - 199 mg/dL [facility] Blood 08/04/2022 2:51 AM INFORMATICS CONSULTANT 08/04/2022 2:51 AM INFORMATICS CONSULTANT Lupillo Doe MD LAB POCT ORDERABLES - D EVICE Final Result Performing Organization Address [facility] de Phone Number CARLOS ENRIQUEELLEN MCDONNELL [address] [facility] [place] [address] * (ABNORMAL) POCT glucose (08/03/2022 7:48 PM INFORMATICS CONSULTANT) Glucose, POC 274(H) 70 - 199 mg/dL [facility] Blood 08/03/2022 7:48 PM INFORMATICS CONSULTANT 08/03/2022 7:48 PM INFORMATICS CONSULTANT us Lupillo Doe MD LAB POCT ORDERABLES - D EVICE Final Result Performing Organization Address [facility] Co de Phone Number CARLOS ENRIQUEELLEN MCDONNELL [address] [facility] [place] [address] * (ABNORMAL) POCT glucose (08/03/2022 4:18 PM INFORMATICS CONSULTANT) Glucose, POC 244(H) 70 - 199 mg/dL [facility] Blood 08/03/2022 4:18 PM INFORMATICS CONSULTANT 08/03/2022 4:18 PM INFORMATICS CONSULTANT Lupillo Doe MD LAB POCT ORDERABLES - D EVICE Final Result Performing Organization Address City/[facility] Co de Phone Number NILSA [address] [facility] [place] [address] * (ABNORMAL) POCT glucose (08/03/2022 12:02 PM INFORMATICS CONSULTANT) Glucose, POC 261(H) 70 - 199 mg/dL [facility] Blood 08/03/2022 12:0 2 PM INFORMATICS CONSULTANT 08/03/2022 12:02 PM INFORMATICS CONSULTANT Lupillo Doe MD LAB POCT ORDERABLES - D EVICE Final Result Performing Organization Address [facility] Co de Phone Number NILSA MCDONNELL [address] [facility] [place] [address] * (ABNORMAL) POCT glucose (08/03/2022 7:48 AM INFORMATICS CONSULTANT) Glucose, POC 243(H) 70 - 199 mg/dL [facility] Blood 08/03/2022 7:48 AM INFORMATICS CONSULTANT 08/03/2022 7:48 AM INFORMATICS CONSULTANT Lupillo Doe MD LAB POCT ORDERABLES - D EVICE Final Result Performing Organization Address [facility] Co de Phone Number NILSA [address] [facility] [facility] [place] [address] * eGFR (08/03/2022 6:35 AM INFORMATICS CONSULTANT) eGFR 29 mL/min/1. 73 m2 NILSA MCDONNELL Comment: Interpretive [...] interpretive data was last reviewed 2021. Blood 08/03/2022 6:35 AM INFORMATICS CONSULTANT 08/03/2022 7:32 AM INFORMATICS CONSULTANT Marie Donaldson NP LAB BLOOD ORDERABLES Final Result NILSA [address] [address] [place] [address] * (ABNORMAL) Differential, auto (08/03/2022 6:35 AM INFORMATICS CONSULTANT) Neutrophil abs 5.5 1.7 - 6.5 K/cumm [facility] Imm gran abs 0.0 0.0 - 0.1 K/cumm [facility] Lymphocyte abs 3.4(H) 0.8 - 3.3 K/cumm [facility] Monocyte abs 0.8 0.2 - 0.8 K/cumm [facility] Eosinophil abs 0.2 0.0 - 0.5 K/cumm [facility] Basophil abs 0.0 0.0 - 0.1 K/cumm [facility] Neutrophil pct 55.0 % [facility] Comment: Interpretive Data Percent cell count reference ranges are not reported, since discordance with absolute values may lead to misinterpretation of CBC data. Current Interpretive Data was last revised on 2017. Imm gran pct 0.2 % NILSA Comment: Interpretive Data Percent cell count reference ranges are not reported, since discordance with absolute values may lead to misinterpretation of CBC data. Current Interpretive Data was last revised on 2017. Lymphocyte pct 34.4 % [facility] Comment: Interpretive Data Percent cell count reference ranges are not reported, since discordance with absolute values may lead to misinterpretation of CBC data. Current Interpretive Data was last revised on 2017. Monocyte pct 7.7 % NILSA Comment: Interpretive Data Percent cell count reference ranges are not reported, since discordance with absolute values may lead to misinterpretation of CBC data. Current Interpretive Data was last revised on 2017. Eosinophil pct 2.3 % [facility] Comment: Interpretive Data Percent cell count reference ranges are not reported, since discordance with absolute values may lead to misinterpretation of CBC data. Current Interpretive Data was last revised on 2017. Basophil pct 0.4 % [facility] Comment: Interpretive Data Percent cell count reference ranges are not reported, since discordance with absolute values may lead to misinterpretation of CBC data. Current Interpretive Data was last revised on 2017. Blood 08/03/2022 6:35 AM INFORMATICS CONSULTANT 08/03/2022 7:32 AM INFORMATICS CONSULTANT us Marie Donaldson NP LAB BLOOD ORDERABLES Final Result NILSA MCDONNELL [address] [address] [place] [address] * (ABNORMAL) Basic metabolic panel (08/03/2022 6:35 AM INFORMATICS CONSULTANT) Sodium 145 135 - 145 mmol/L NILSA Potassium, pl 4.1 3.3 - 4.9 mmol/L [facility] Chloride 108 97 - 110 mmol/L [facility] CO2 26 22 - 32 mmol/L [facility] Anion gap 11 2 - 15 mmol/L [facility] BUN 50(H) 8 - 25 mg/dL [facility] Creatinine 1.82(H) 0.60 - 1.10 mg/dL [facility] Glucose 245(H) 70 - 199 mg/dL [facility] Comment: Interpretive [...] interpretive data was last revised 2022. Calcium 9.7 8.5 - 10.3 mg/dL [facility] Blood 08/03/2022 6:35 AM INFORMATICS CONSULTANT 08/03/2022 7:32 AM INFORMATICS CONSULTANT Marie Donaldson NP LAB BLOOD ORDERABLES Final Result [facility] [address] [address] [place] [address] * (ABNORMAL) CBC with auto differential (08/03/2022 6:35 AM INFORMATICS CONSULTANT) Pathologist [facility] WBC 10.0(H) 3.8 - 9.9 K/cumm [facility] Hgb 8.6(L) 11.9 - 15.5 g/dL [facility] Hct 27.7(L) 35.6 - 45.5 % [facility] Plt 302 150 - 400 K/cumm [facility] MPV 11.0 9.1 - 12.3 fL [facility] RBC 2.91(L) 3.90 - 5.20 M/cumm [facility] MCV 95.2 81.3 - 96.4 fL [facility] MCH 29.6 27.1 - 33.3 pg [facility] MCHC 31.0(L) 32.3 - 35.7 g/dL [facility] RDW CV 14.7 11.1 - 14.9 % [facility] RDW SD 51.3(H) 35.7 - 48.1 fL [facility] NRBC abs 0.00 0.00 - 0.01 K/cumm [facility] Blood 08/03/2022 6:35 AM INFORMATICS CONSULTANT 08/03/2022 7:32 AM INFORMATICS CONSULTANT Marie Donaldson NP LAB BLOOD ORDERABLES Final Result Performing Organization Address City/[facility]/ZIP Co de Phone Number CARLOS ENRIQUEELLEN MCDONNELL [address] [address] [facility] [place] [address] * (ABNORMAL) POCT glucose (08/03/2022 2:10 AM INFORMATICS CONSULTANT) Glucose, POC 285(H) 70 - 199 mg/dL [facility] Blood 08/03/2022 2:10 AM INFORMATICS CONSULTANT 08/03/2022 2:10 AM INFORMATICS CONSULTANT Lupillo Doe MD LAB POCT ORDERABLES - D EVICE Final Result Performing Organization Address [facility] Co de Phone Number NILSA KECIA [address] [address] [facility] [place], [place] [address] * (ABNORMAL) POCT glucose (08/02/2022 7:50 PM INFORMATICS CONSULTANT) Glucose, POC 213(H) 70 - 199 mg/dL [facility] Blood 08/02/2022 7:50 PM INFORMATICS CONSULTANT 08/02/2022 7:50 PM INFORMATICS CONSULTANT Lupillo Doe MD LAB POCT ORDERABLES - D EVICE Final Result Performing Organization Address [facility]/ZIP Co de Phone Number CARLOS ENRIQUEELLEN MCDONNELL [address] [address] [facility] [place], [place] [id number] * (ABNORMAL) POCT glucose (08/02/2022 4:24 PM INFORMATICS CONSULTANT) Glucose, POC 324(H) 70 - 199 mg/dL [facility] Blood 08/02/2022 4:24 PM INFORMATICS CONSULTANT 08/02/2022 4:24 PM INFORMATICS CONSULTANT Lupillo Doe MD LAB POCT ORDERABLES - D EVICE Final Result Performing Organization Address [facility] Co de Phone Number NILSA MCDONNELL [address] [address] [facility] [place] [address] * ECG 12 lead (08/02/2022 12:26 PM INFORMATICS CONSULTANT) 08/02/2022 12:2 6 PM INFORMATICS CONSULTANT Narrative [facility] - 08/03/2022 1:25 AM INFORMATICS CONSULTANT Vent Rate: 74 bpm RR Interval: 808 msec AL Interval: 173 msec QRS Duration: 80 msec QT Interval: 425 msec QTC Interval: 452 msec P-R-T [place]: 64 - 17 - 16 degrees SINUS RHYTHM NORMAL ECG Electronically Signed By: Nathalia Velásquez MD Brandie Garcia OPERATOR [employer] ECG ORDERABLES Final Resu lt Performing Organization Address [facility] Co de Phone Number [facility] * (ABNORMAL) POCT glucose (08/02/2022 11:42 AM INFORMATICS CONSULTANT) Glucose, POC 236(H) 70 - 199 mg/dL [facility] Blood 08/02/2022 11:4 2 AM INFORMATICS CONSULTANT 08/02/2022 11:42 AM INFORMATICS CONSULTANT Lupillo Doe MD LAB POCT ORDERABLES - D EVICE Final Result Performing Organization Address [facility] Co de Phone Number NILSA MCDONNELL [address] [address] Department [place] [address] * (ABNORMAL) POCT glucose (08/02/2022 8:26 AM INFORMATICS CONSULTANT) Glucose, POC 305(H) 70 - 199 mg/dL NILSA Blood 08/02/2022 8:26 AM INFORMATICS CONSULTANT 08/02/2022 8:26 AM INFORMATICS CONSULTANT us Lupillo Doe MD LAB POCT ORDERABLES - D EVICE Final Result Performing Organization Address City/State/[facility] Co de Phone Number NILSA [address] [address] [place] [address] * eGFR (08/02/2022 5:42 AM INFORMATICS CONSULTANT) Pathologist [facility] eGFR 29 mL/min/1. 73 m2 CARLOS ENRIQU[facility]LL[facility] Comment: Interpretive Data Reference Interval Normal ?>/= [...] interpretive data was last reviewed 2021. Blood 08/02/2022 5:42 AM INFORMATICS CONSULTANT 08/02/2022 6:21 AM INFORMATICS CONSULTANT us Marie Donaldson NP LAB BLOOD ORDERABLES Final Result [facility] [address] [address] [place] [address] * Differential, auto (08/02/2022 5:42 AM INFORMATICS CONSULTANT) Neutrophil abs 6.1 1.7 - 6.5 K/cumm [facility] Imm gran abs 0.0 0.0 - 0.1 K/cumm [facility] Lymphocyte abs 2.7 0.8 - 3.3 K/cumm [facility] Monocyte abs 0.8 0.2 - 0.8 K/cumm [facility] Eosinophil abs 0.2 0.0 - 0.5 K/cumm [facility] Basophil abs 0.0 0.0 - 0.1 K/cumm [facility] Neutrophil pct 61.7 % [facility] Comment: Interpretive Data Percent cell count reference ranges are not reported, since discordance with absolute values may lead to misinterpretation of CBC data. Current Interpretive Data was last revised on 2017. Imm gran pct 0.2 % [facility] Comment: Interpretive Data Percent cell count reference ranges are not reported, since discordance with absolute values may lead to misinterpretation of CBC data. Current Interpretive Data was last revised on 2017. Lymphocyte pct 27.4 % [facility] Comment: Interpretive Data Percent cell count reference ranges are not reported, since discordance with absolute values may lead to misinterpretation of CBC data. Current Interpretive Data was last revised on 2017. Monocyte pct 8.1 % [facility] Comment: Interpretive Data Percent cell count reference ranges are not reported, since discordance with absolute values may lead to misinterpretation of CBC data. Current Interpretive Data was last revised on 2017. Eosinophil pct 2.2 % [facility] Comment: Interpretive Data Percent cell count reference ranges are not reported, since discordance with absolute values may lead to misinterpretation of CBC data. Current Interpretive Data was last revised on 2017. Basophil pct 0.4 % [facility] Comment: Interpretive Data Percent cell count reference ranges are not reported, since discordance with absolute values may lead to misinterpretation of CBC data. Current Interpretive Data was last revised on 2017. Blood 08/02/2022 5:42 AM INFORMATICS CONSULTANT 08/02/2022 6:36 AM INFORMATICS CONSULTANT Mariedhaval Donaldson LAB BLOOD ORDERABLES Final Result Performing Organization Address [facility] de Phone Number [facility] [address] [place] [address] * (ABNORMAL) Hemoglobin A1c (08/02/2022 5:42 AM INFORMATICS CONSULTANT) Hgb A1C 8.3(H) 4.0 - 5.6 % [facility] Estimated Average Glucose 192 mg/dL [facility] Comment: The ADA recommends reporting an estimated Average Glucose (eAG) with all Hemoglobin A1c results using the equation derived from a study of 507 normal and diabetic adults. ??Minority populations were underrepresented and children were not included. ?? (Diabetes Care 31:1830-7671, 2007). ??The eAG is not equivalent to a fasting glucose. Blood 08/02/2022 5:42 AM INFORMATICS CONSULTANT 08/02/2022 6:21 AM INFORMATICS CONSULTANT Result [facility] Marie Donaldson LAB BLOOD ORDERABLES Final Result Performing Organization Address [facility] de Phone Number [facility] [address] [facility] [place] [address] * (ABNORMAL) Basic metabolic panel (08/02/2022 5:42 AM INFORMATICS CONSULTANT) Sodium 141 135 - 145 mmol/L [facility] Potassium, pl 4.3 3.3 - 4.9 mmol/L [facility] Chloride 106 97 - 110 mmol/L [facility] CH CO2 26 22 - 32 mmol/L [facility] Anion gap 9 2 - 15 mmol/L [facility] BUN 47(H) 8 - 25 mg/dL [facility] Creatinine 1.82(H) 0.60 - 1.10 mg/dL [facility] Glucose 222(H) 70 - 199 mg/dL [facility] Comment: Interpretive Data Fasting glucose >/= 126 [...] Calcium 9.2 8.5 - 10.3 mg/dL [facility] Blood 08/02/2022 5:42 AM INFORMATICS CONSULTANT 08/02/2022 6:21 AM INFORMATICS CONSULTANT Marie Donaldson NP LAB BLOOD ORDERABLES Final Result [facility] [address] [place] [address] * (ABNORMAL) CBC with auto differential (08/02/2022 5:42 AM INFORMATICS CONSULTANT) WBC 9.9 3.8 - 9.9 K/cumm [facility] Hgb 9.0(L) 11.9 - 15.5 g/dL [facility] Hct 28.3(L) 35.6 - 45.5 % [facility] Plt 302 150 - 400 K/cumm [facility] MPV 11.1 9.1 - 12.3 fL [facility] RBC 3.01(L) 3.90 - 5.20 M/cumm [facility] MCV 94.0 81.3 - 96.4 fL [facility] MCH 29.9 27.1 - 33.3 pg [facility] MCHC 31.8(L) 32.3 - 35.7 g/dL [facility] RDW CV 14.8 11.1 - 14.9 % [facility] RDW SD 51.1(H) 35.7 - 48.1 fL [facility] NRBC abs 0.00 0.00 - 0.01 K/cumm [facility] Blood 08/02/2022 5:42 AM INFORMATICS CONSULTANT 08/02/2022 6:36 AM INFORMATICS CONSULTANT Marie Donaldson NP LAB BLOOD ORDERABLES Final Result Performing Organization Address [facility] Co de Phone Number NILSA MCDONNELL [address] [facility] [place] [address] * (ABNORMAL) POCT glucose (08/02/2022 2:22 AM INFORMATICS CONSULTANT) Glucose, POC 265(H) 70 - 199 mg/dL [facility] CH Blood 08/02/2022 2:22 AM INFORMATICS CONSULTANT 08/02/2022 2:22 AM INFORMATICS CONSULTANT Brett Schmidt MD LAB POCT ORDERABLES - DEVICE Final Result Performing Organization Address [facility] Co de Phone Number [facility] [address] [facility] [place] [address] * (ABNORMAL) POCT glucose (08/01/2022 10:33 PM INFORMATICS CONSULTANT) Glucose, POC 247(H) 70 - 199 mg/dL [facility] CH Blood 08/01/2022 10:3 3 PM INFORMATICS CONSULTANT 08/01/2022 10:33 PM INFORMATICS CONSULTANT Brett Schmidt MD LAB POCT ORDERABLES - DEVICE Final Result Performing Organization Address [facility] Co de Phone Number NILSA [address] [facility] [place] [address] * POCT glucose (08/01/2022 6:41 PM INFORMATICS CONSULTANT) Glucose, POC 160 70 - 199 mg/dL [facility] CH Blood 08/01/2022 6:41 PM INFORMATICS CONSULTANT 08/01/2022 6:41 PM INFORMATICS CONSULTANT Brett Schmidt MD LAB POCT ORDERABLES - DEVICE Final Result Performing Organization Address [facility] Co de Phone Number NILSA [address] Department [place] [address] * Blood culture Blood Peripheral (08/01/2022 5:17 PM INFORMATICS CONSULTANT) Report Final Report: No growth NILSA MCDONNELL Comment:Testing performed by : [facility], [address], [place]., [address] Blood (Peripheral) 08/01/2022 5:17 PM INFORMATICS CONSULTANT 08/01/2022 10:56 PM INFORMATICS CONSULTANT Narrative NILSA MCDONNELL - 08/06/2022 7:00 AM INFORMATICS CONSULTANT From a different site than #1. Draw Blood cultures before administration of Antibiotics 1. ?Blood cultures are incubated for 4 [...] organism identification may be performed using the AudioSnapsigene Gram-Positive Blood Culture Assay. This assay detects microbial DNA in positive blood culture broth via hybridization of target DNA to capture oligonucleotides on a microarray. This assay has been cleared by the [place] Food and Drug Administration and its performance characteristics have been verified by the [facility]. 5. ?For questions about this culture, contact the Microbiology Laboratory at [phone]. Interpretive data was last revised on 2019. Anam Ayers DO LAB MICROBIOLOGY - GENERAL ORD ERABLES Final Result Performing Organization Address [facility] Co de Phone Number CARLOS ENRIQUEELLEN MCDONNELL [address] Department [place] [address] * Blood culture Blood Peripheral (08/01/2022 5:17 PM INFORMATICS CONSULTANT) Report Final Report: No growth NILSA MCDONNELL Comment:Testing performed by : [facility], [address], [place]., [address] Blood (Peripheral) 08/01/2022 5:17 PM INFORMATICS CONSULTANT 08/01/2022 10:56 PM INFORMATICS CONSULTANT Narrative NILSA MCDONNELL - 08/06/2022 7:00 AM INFORMATICS CONSULTANT Draw Blood cultures before administration of Antibiotics 1. ?Blood cultures are incubated for 4 [...] organism identification may be performed using the AudioSnapsigene Gram-Positive Blood Culture Assay. This assay detects microbial DNA in positive blood culture broth via hybridization of target DNA to capture oligonucleotides on a microarray. This assay has been cleared by the [place] Food and Drug Administration and its performance characteristics have been verified by the [facility]. 5. ?For questions about this culture, contact the Microbiology Laboratory at [phone]. Interpretive data was last revised on 2019. Anam Ayers DO LAB MICROBIOLOGY - GENERAL ORD ERABLES Final Result Performing Organization Address [facility]/ZIP Co de Phone Number NILSA MCDONNELL [address] [place] [address] * Sepsis Lactate w/ Reflex (08/01/2022 5:17 PM INFORMATICS CONSULTANT) Sepsis Lactate 1.6 0.7 - 2.0 mmol/L NILSA MCDONNELL Blood 08/01/2022 5:17 PM INFORMATICS CONSULTANT 08/01/2022 5:22 PM INFORMATICS CONSULTANT us Anam Ayers DO LAB BLOOD ORDERABLES Final Res ult Performing Organization Address [facility]/ZIP Co de Phone Number NILSA [address] [facility] [place] [address] * (ABNORMAL) Troponin T high-sensitivity 6-hour (08/01/2022 5:17 PM INFORMATICS CONSULTANT) Trop T hs 24(H) <=14 ng/L NILSA MCDONNELL Comment: Interpretive Data For further hscTnT resources including the diagnostic algorithm and an aid in interpretation, copy and paste this link: https://nrl.testcatalog.org/show/hsTrop Current Interpretive Data last revised 2020. Trop T hs delta -14(C) ng/L NILSA MCDONNELL Comment:Critical Result call ed to and read back by Markie Mix, DATE: 2022-08-01 18:29:21 BY: Mireille Cuadra Trop T hs interp Significa nt(C) NILSA MCDONNELL Comment:Critical Result call ed to and read back by Markie Mix, DATE: 2022-08-01 18:29:21 BY: Mireille Cuadra Blood 08/01/2022 5:17 PM INFORMATICS CONSULTANT 08/01/2022 5:22 PM INFORMATICS CONSULTANT Honey [facility] LAB BLOOD ORDERABLES Fin al Result Performing Organization Address [facility]/ZIP Co de Phone Number CARLOS ENRIQUEELLEN [address] Department [place] [address] * XR Chest 1 Vw Portable (08/01/2022 4:30 PM INFORMATICS CONSULTANT) Anatomical Region Laterality Modality Body, Chest N/A Computed Radiogr aphy 08/01/2022 5:04 PM INFORMATICS CONSULTANT Impressions 08/01/2022 5:04 PM INFORMATICS CONSULTANT No active pulmonary disease. Electronically signed by: Alpesh Jaquez M.D. Narrative 08/01/2022 5:04 PM INFORMATICS CONSULTANT EXAMINATION: XR CHEST 1 VIEW DATE: 08/01/2022 4:20 PM HISTORY: Weakness FINDINGS: No infiltrate, effusion or pneumothorax is present. ??Heart size, mediastinum and pulmonary vascularity are normal. Procedure Note Alpesh Jaquez MD - 08/01/2022 EXAMINATION: XR CHEST 1 VIEW DATE: 08/01/2022 4:20 PM HISTORY: Weakness FINDINGS: No infiltrate, effusion or pneumothorax is present. Heart size, mediastinum and pulmonary vascularity are normal. IMPRESSION: No active pulmonary disease. Electronically signed by: Alpesh Jaquez M.D. us Anam Ayers DO IMG XR PROCEDURES Final Result * (ABNORMAL) Troponin T high-sensitivity 4-hour (08/01/2022 3:43 PM INFORMATICS CONSULTANT) Trop T hs 29(H) <=14 ng/L NILSA Comment: Interpretive Data For further hscTnT resources including the diagnostic algorithm and an aid in interpretation, copy and paste this link: https://nrl.testcatalog.org/show/hsTrop Current Interpretive Data last revised 2020. Trop T hs delta -9 ng/L [facility] Trop T hs interp Equivocal [facility] Blood 08/01/2022 3:43 PM INFORMATICS CONSULTANT 08/01/2022 3:43 PM INFORMATICS CONSULTANT us Honey [facility] LAB BLOOD ORDERABLES Fin al Result NILSA [address] Department [place] [address] * (ABNORMAL) Troponin T high-sensitivity 2-hour (08/01/2022 1:04 PM INFORMATICS CONSULTANT) Trop T hs 32(H) <=14 ng/L [facility] Comment: Interpretive Data For further hscTnT resources including the diagnostic algorithm and an aid in interpretation, copy and paste this link: https://nrl.testcatalog.org/show/hsTrop Current Interpretive Data last revised 2020. Trop T hs delta -6 ng/L [facility] Trop T hs interp Equivocal [facility] Blood 08/01/2022 1:04 PM INFORMATICS CONSULTANT 08/01/2022 1:04 PM INFORMATICS CONSULTANT us Honey [facility] LAB BLOOD ORDERABLES Fin al Result [facility] [address] Department [place] [address] * Influenza A/B, RSV, and COVID-19 PCR Nasopharyngeal (08/01/2022 12:55 PM INFORMATICS CONSULTANT) [facility] COVID-19 RNA Negative Negative [facility] Influenza A RNA Negative Negative [facility] Influenza B RNA Negative Negative [facility] RSV RNA Negative Negative [facility] Comment: Interpretive data: This test is performed using the Mediastay Xpert Xpress CoV-2/Flu/RSV plus assay. This is [...] infection. Interpretive Data last revised 2021. Nasopharyngeal 08/01/2022 12 :55 PM INFORMATICS CONSULTANT 08/01/2022 1:01 PM INFORMATICS CONSULTANT Narrative [facility] - 08/01/2022 2:27 PM INFORMATICS CONSULTANT Is the Patient experiencing symptoms consistent with COVID?->Yes Date of Symptom Onset->07/31/22 Reason for testing?->Bed placement or semi-private room us Anam Ayers DO LAB MICROBIOLOGY - GENERAL ORD ERABLES Final Result Performing Organization Address [facility] Co de Phone Number CARLOS ENRIQUEELLEN MCDONNELL [address] [facility] [place] [address] * Urine culture Urine (08/01/2022 12:52 PM INFORMATICS CONSULTANT) Report Final Report: Less than 100,000 colonies/mL (clinically insignificant growth based on current clinical standards) [facility] Comment:Testing performed by : [facility], [address] [place]., [address] Organism (CLINICALLY INSIGNIFICANT GROWTH [facility] Urine 08/01/2022 12:5 2 PM INFORMATICS CONSULTANT 08/01/2022 5:56 PM INFORMATICS CONSULTANT Narrative [facility] - 08/02/2022 8:04 PM INFORMATICS CONSULTANT Urine culture reflexed based upon urinalysis results. Testing performed by [facility]biology [facility] ([phone]) Honey [facility] LAB MICROBIOLOGY - GENER AL ORDERABLES Final Result Performing Organization Address [facility] de Phone Number CARLOS ENRIQUEELLEN MCDONNELL [address] [place] [address] * (ABNORMAL) Urinalysis, microscopic only (08/01/2022 12:52 PM INFORMATICS CONSULTANT) WBC, ur >50(A) 0 - 5 /HPF [facility] RBC, ur 3-5(A) 0 - 2 /HPF [facility] Epithelial cells, squamous, ur 1-5 0 - 5 /HPF [facility] Bacteria, ur 1+(A) [facility] Mucous, ur Present(A) [facility] Culture Reflex Comment Reflex to urine culture will be performed. [facility] Urine 08/01/2022 12:5 2 PM INFORMATICS CONSULTANT 08/01/2022 1:01 PM INFORMATICS CONSULTANT Honey [facility] LAB URINE ORDERABLES Fin al Result Performing Organization Address [facility] Co de Phone Number CARLOS ENRIQUEELLEN MCDONNELL [address] [place] [address] * (ABNORMAL) Urinalysis reflex to microscopic and culture Urine (08/01/2022 12:52 PM INFORMATICS CONSULTANT) Color, ur Yellow Yellow [facility] Clarity, ur Cloudy(A) Clear [facility] CH Specific gravity, ur 1.009 1.003 - 1.030 [facility] CH pH, urine 6.0 [facility] CH Protein, ur ql 2+(A) Negative [facility] CH Glucose, ur ql Trace(A) Negative [facility] CH Ketones, ur Negative Negative [facility] CH Bilirubin, ur Negative Negative [facility] CH Blood, ur 1+(A) Negative [facility] CH Urobilinogen, ur 0.2 <2.0 mg/dL [facility] CH Nitrite, ur Negative Negative [facility] CH Leukocyte esterase, ur 2+(A) Negative [facility] CH UA reflex comment Reflex to microscopic UA will be performed. [facility] CH Urine 08/01/2022 12:5 2 PM INFORMATICS CONSULTANT 08/01/2022 1:01 PM INFORMATICS CONSULTANT Narrative [facility] - 08/01/2022 1:14 PM INFORMATICS CONSULTANT ?? Urine pH is affected by diet, medications, systemic acid-base disturbances, and renal tubular function. ??pH may affect urinary stone formation. ??For example, urine pH below 6.0 may help reduce the tendency for calcium phosphate stones and pH greater than 6.0 may reduce the tendency for uric acid stone formation. Source: [facility]. Last revised 07-02-2017 Honey [facility] LAB MICROBIOLOGY - GENER AL ORDERABLES Final Result NILSA [address] [place] [address] * eGFR (08/01/2022 11:00 AM INFORMATICS CONSULTANT) eGFR 27 mL/min/1. 73 m2 [facility] Comment: Interpretive Data Reference Interval Normal ?>/= [...] interpretive data was last reviewed 2021. Blood 08/01/2022 11:0 0 AM INFORMATICS CONSULTANT 08/01/2022 11:09 AM INFORMATICS CONSULTANT us Honey [facility] LAB BLOOD ORDERABLES Fin al Result [facility] [address] [place] [address] * Differential, auto (08/01/2022 11:00 AM INFORMATICS CONSULTANT) Neutrophil abs 6.4 1.7 - 6.5 K/cumm [facility] Imm gran abs 0.0 0.0 - 0.1 K/cumm [facility] Lymphocyte abs 2.2 0.8 - 3.3 K/cumm [facility] Monocyte abs 0.6 0.2 - 0.8 K/cumm [facility] Eosinophil abs 0.1 0.0 - 0.5 K/cumm [facility] Basophil abs 0.0 0.0 - 0.1 K/cumm [facility] Neutrophil pct 68.0 % [facility] Comment: Interpretive Data Percent cell count reference [...] was last revised on 2017. Lymphocyte pct 23.4 % NILSA Comment: Interpretive Data Percent cell count reference ranges are not reported, since discordance with absolute values may lead to misinterpretation of CBC data. Current Interpretive Data was last revised on 2017. Monocyte pct 6.6 % NILSA Comment: Interpretive Data Percent cell count reference ranges are not reported, since discordance with absolute values may lead to misinterpretation of CBC data. Current Interpretive Data was last revised on 2017. Eosinophil pct 1.3 % NILSA Comment: Interpretive Data Percent cell count reference ranges are not reported, since discordance with absolute values may lead to misinterpretation of CBC data. Current Interpretive Data was last revised on 2017. Basophil pct 0.4 % NILSA Comment: Interpretive Data Percent cell count reference ranges are not reported, since discordance with absolute values may lead to misinterpretation of CBC data. Current Interpretive Data was last revised on 2017. Blood 08/01/2022 11:0 0 AM INFORMATICS CONSULTANT 08/01/2022 11:10 AM INFORMATICS CONSULTANT us Honey [facility] LAB BLOOD ORDERABLES Fin al Result NILSA [address] [place] [address] * (ABNORMAL) Troponin T high-sensitivity series (baseline, 2hr, 4hr, 6hr) (08/01/2022 11:00 AM INFORMATICS CONSULTANT) Trop T hs 38(H) <=14 ng/L NILSA Comment: Interpretive Data For further hscTnT resources including the diagnostic algorithm and an aid in interpretation, copy and paste this link: https://nrl.testcatalog.org/show/hsTrop Current Interpretive Data last revised 2020. Blood 08/01/2022 11:0 0 AM INFORMATICS CONSULTANT 08/01/2022 11:09 AM INFORMATICS CONSULTANT us Honey [facility] LAB BLOOD ORDERABLES Fin al Result CERNER [address] [place] [address] * (ABNORMAL) Comprehensive metabolic panel (08/01/2022 11:00 AM INFORMATICS CONSULTANT) Sodium 139 135 - 145 mmol/L [facility] CH Potassium, pl 4.6 3.3 - 4.9 mmol/L [facility] CH Chloride 102 97 - 110 mmol/L [facility] CH CO2 25 22 - 32 mmol/L [facility] Anion gap 12 2 - 15 mmol/L [facility] BUN 45(H) 8 - 25 mg/dL [facility] Creatinine 1.96(H) 0.60 - 1.10 mg/dL [facility] CH Glucose 242(H) 70 - 199 mg/dL [facility] Comment: [...] - 1.2 mg/dL [facility] CH Protein, pl 7.2 6.5 - 8.5 g/dL [facility] CH Albumin 3.4(L) 3.5 - 5.0 g/dL [facility] Alk phos 158(H) 40 - 130 Units/L [facility] ALT 73(H) 7 - 45 Units/L [facility] CH AST 65(H) 10 - 45 Units/L [facility] Blood 08/01/2022 11:0 0 AM INFORMATICS CONSULTANT 08/01/2022 11:09 AM INFORMATICS CONSULTANT Honey [facility] LAB BLOOD ORDERABLES Fin marlena Result NILSA [address] Department [place] [address] * (ABNORMAL) CBC with auto differential (08/01/2022 11:00 AM INFORMATICS CONSULTANT) Pathologist [facility] WBC 9.5 3.8 - 9.9 K/cumm [facility] CH Hgb 9.2(L) 11.9 - 15.5 g/dL [facility] CH Hct 29.0(L) 35.6 - 45.5 % [facility] CH Plt 316 150 - 400 K/cumm [facility] MPV 10.7 9.1 - 12.3 fL [facility] RBC 3.08(L) 3.90 - 5.20 M/cumm [facility] MCV 94.2 81.3 - 96.4 fL [facility] MCH 29.9 27.1 - 33.3 pg [facility] CH MCHC 31.7(L) 32.3 - 35.7 g/dL [facility] CH RDW CV 14.8 11.1 - 14.9 % [facility] CH RDW SD 50.7(H) 35.7 - 48.1 fL [facility] NRBC abs 0.00 0.00 - 0.01 K/cumm [facility] Blood 08/01/2022 11:0 0 AM INFORMATICS CONSULTANT 08/01/2022 11:10 AM INFORMATICS CONSULTANT oHney [facility] LAB BLOOD ORDERABLES Fin al Result NILSA [address] [place] [address] documented in this encounter Visit Diagnoses Diagnosis Urinary tract infection without hematuria, site unspecified- Primary Urinary tract infection without hematuria, site unspecified Weakness Other malaise and fatigue Type 2 diabetes mellitus with diabetic neuropathy, with long-term current use of insulin (HCC) Anemia, unspecified type Gastritis without bleeding, unspecified chronicity, unspecified gastritis type documented in this encounter Admitting Diagnoses Diagnosis Urinary tract infection without hematuria, site unspecified documented in this encounter Administered Medications Inactive Administered Medications - up to 3 most recent administrations Medication Order MAR Action Action Date Dose Rate Site acetaminophen (TYLENOL) tablet 650 mg 650 mg, oral, Every 4 hours PRN, 1st line for pain, Starting on Thu08/01/22 at 1807, Indications: PainIndications:Pain Given 08/04/2022 9:30 PM INFORMATICS CONSULTANT 650 mg apixaban (ELIQUIS) tablet 5 mg 5 mg, oral, Every 12 hours, First dose on Thu08/01/22 at 1818, Nurse to discontinue heparin infusion order and associated bolus at first administration of apixaban using 'order condition met' order source, Indications: VTE ProphylaxisIndications:VTE Prophylaxis Given 08/07/2022 5:21 PM INFORMATICS CONSULTANT 5 mg Given 08/07/2022 6:37 AM INFORMATICS CONSULTANT 5 mg Given 08/06/2022 5:59 PM INFORMATICS CONSULTANT 5 mg atorvastatin (LIPITOR) tablet 20 mg 20 mg, oral, Daily, First dose on Thu08/01/22 at 1818 Given 08/07/2022 8:20 AM INFORMATICS CONSULTANT 20 mg Given 08/06/2022 8:11 AM INFORMATICS CONSULTANT 20 mg Given 08/05/2022 12:52 PM INFORMATICS CONSULTANT 20 mg benztropine (COGENTIN) tablet 1.5 mg 1.5 mg, oral, Nightly, First dose on Thu08/01/22 at 2100, Indications: drug-induced extrapyramidal reactionIndications:drug-induced extrapyramidal reaction Given 08/06/2022 9:05 PM INFORMATICS CONSULTANT 1.5 mg Given 08/05/2022 8:48 PM INFORMATICS CONSULTANT 1.5 mg Given 08/04/2022 9:31 PM INFORMATICS CONSULTANT 1.5 mg carvediloL (COREG) tablet 3.125 mg 3.125 mg, oral, 2 times daily with meals (bkfst, dinner), First dose on Thu08/01/22 at 1818, Hold for SBP< 110 Given 08/03/2022 8:56 AM INFORMATICS CONSULTANT 3.125 mg Given 08/02/2022 5:28 PM INFORMATICS CONSULTANT 3.125 mg Given 08/02/2022 8:33 AM INFORMATICS CONSULTANT 3.125 mg carvediloL (COREG) tablet 6.25 mg 6.25 mg, oral, 2 times daily with meals (bkfst, dinner), First dose (after last modification) on Thu08/03/22 at 1800, Hold for SBP< 110 Given 08/07/2022 5:21 PM INFORMATICS CONSULTANT 6.25 mg Given 08/07/2022 8:14 AM INFORMATICS CONSULTANT 6.25 mg Given 08/06/2022 5:59 PM INFORMATICS CONSULTANT 6.25 mg cefTRIAXone (ROCEPHIN) 1,000 mg/10 mL in sterile water (premix) 1,000 mg 1,000 mg, intravenous, at 600 mL/hr, Administer over 1 Minutes, Every 24 hours scheduled, First dose on Thu08/01/22 at 1559, Indications: Urinary Tract/Genitourinary InfectionIndications:Urinary Tract/Genitourinary Infection Given 08/02/2022 8:38 AM INFORMATICS CONSULTANT 1,000 mg 6 00 mL/hr Given 08/01/2022 5:28 PM INFORMATICS CONSULTANT 1,000 mg 600 mL/hr cefTRIAXone (ROCEPHIN) 2,000 mg/20 mL in sterile water (premix) 2,000 mg 2,000 mg, intravenous, at 1,200 mL/hr, Administer over 1 Minutes, Every 24 hours scheduled, First dose (after last modification) on Thu08/03/22 at 0900, Indications: Urinary Tract/Genitourinary InfectionIndications:Urinary Tract/Genitourinary Infection Given 08/06/2022 8:10 AM INFORMATICS CONSULTANT 2,000 mg 1 200 mL/hr Given 08/05/2022 12:52 PM INFORMATICS CONSULTANT 2,000 mg 1200 mL/hr Given 08/04/2022 8:21 AM INFORMATICS CONSULTANT 2,000 mg 1200 mL/hr dextrose (D10W) 10% bolus 250 mL 250 mL, intravenous, at 1,000 mL/hr, Administer over 15 Minutes, Every 15 min PRN, blood glucose less than 70 mg/dL and UNABLE to swallow/take PO glucose/juice., Starting on 08/02/22 at 1038, After treatment for hypoglycemia, recheck BG followed [...] glucose less than 70 mg/dL, Starting on Thu08/02/22 at 1038, If patient is alert and able to [...] episode of hypoglycemia., Indications: hypoglycemic disorderIndications:hypoglycemic disorder docusate sodium (COLACE) capsule 100 mg 100 mg, oral, 2 times daily PRN, constipation, Starting on Thu08/01/22 at 1841, Indications: constipationIndications:constipation famotidine (PEPCID) tablet 10 mg 10 mg, oral, Nightly, First dose on Thu08/01/22 at 2100 Given 08/06/2022 9:05 PM INFORMATICS CONSULTANT 10 mg Given 08/05/2022 8:51 PM INFORMATICS CONSULTANT 10 mg Given 08/04/2022 9:31 PM INFORMATICS CONSULTANT 10 mg ferrous sulfate delayed release tablet 65 mg of elemental iron 65 mg of elemental iron, oral, Daily with breakfast, First dose on Thu08/02/22 at 0800, 325 MG OF FERROUS SULFATE = 65 MG OF ELEMENTAL IRON, Indications: Iron Deficiency AnemiaIndications:Iron Deficiency Anemia Given 08/07/2022 8:14 AM INFORMATICS CONSULTANT 65 mg of elemental iron Given 08/06/2022 8:10 AM INFORMATICS CONSULTANT 65 mg of elemental iron Given 08/05/2022 12:51 PM INFORMATICS CONSULTANT 65 mg of elemental iron furosemide (LASIX) tablet 40 mg 40 mg, oral, 2 times daily, First dose on Thu08/01/22 at 2100, Hold for SBP< 110, Indications: hypertensionIndications:hypertension Given 08/07/2022 8:20 AM INFORMATICS CONSULTANT 40 mg Given 08/06/2022 9:03 PM INFORMATICS CONSULTANT 40 mg Given 08/02/2022 8:32 AM INFORMATICS CONSULTANT 40 mg glucagon injection 1 mg 1 mg, intramuscular, Every 30 min PRN, low blood sugar, blood glucose less than 70 mg/dL AND no IV access AND unable to take PO glucose/juice., Starting on Thu08/02/22 at 1038, After Glucagon is administered, position patient on [...] oral, 3 times daily, First dose on Thu08/02/22 at 1600, Indications: hypertensionIndications:hypertension Given 08/07/2022 3:27 PM INFORMATICS CONSULTANT 25 mg Given 08/07/2022 8:20 AM INFORMATICS CONSULTANT 25 mg Given 08/06/2022 9:09 PM INFORMATICS CONSULTANT 25 mg insulin glargine (LANTUS, SEMGLEE) 100 unit/mL injection 15 Units 15 Units, subcutaneous, Nightly, First dose on Thu08/02/22 at 2100, Do not mix with other insulins Given 08/05/2022 8:49 PM INFORMATICS CONSULTANT 15 Units Left Lower Abdomen Given 08/04/2022 9:32 PM INFORMATICS CONSULTANT 15 Units Le ft Lower Abdomen Given 08/03/2022 8:28 PM INFORMATICS CONSULTANT 15 Units Le ft Forearm insulin glargine (LANTUS, SEMGLEE) 100 unit/mL injection 25 Units 25 Units, subcutaneous, Nightly, First dose (after last modification) on Thu08/06/22 at 2100, Do not mix with other insulins Given 08/06/2022 9:23 PM INFORMATICS CONSULTANT 25 Units Left Upper Arm insulin lispro (HumaLOG, ADMELOG) 100 unit/mL injection 0-10 Units 0-10 Units, subcutaneous, 3 times daily with meals, First dose on Thu08/02/22 at 1200, Blood glucose mg/dL: 149 or [...] NPO Status, Indications: Diabetes MellitusIndications:Diabetes Mellitus Given 08/07/2022 5:22 PM INFORMATICS CONSULTANT 2 Units Right Lower Abdomen Given 08/07/2022 12:41 PM INFORMATICS CONSULTANT 2 Units L eft Lower Abdomen Given 08/07/2022 8:13 AM INFORMATICS CONSULTANT 2 Units Le ft Lower Abdomen insulin lispro (HumaLOG, ADMELOG) 100 unit/mL injection 0-4 Units 0-4 Units, subcutaneous, Nightly, First dose on Thu08/01/22 at 2100, Blood glucose mg/dL: 199 or less: No insulin 200-249: add 1 unit 250-299: add 2 units 300-349: add 3 units and notify physician for adjustment of insulin orders. 350-399: add 4 units and notify physician for adjustment of insulin orders. Over 400: Notify physician for adjustment of insulin orders. Do NOT hold for NPO Status, Indications: Diabetes MellitusIndications:Diabetes Mellitus Given 08/01/2022 11:18 PM INFORMATICS CONSULTANT 2 Units Left Lower Abdomen insulin lispro (HumaLOG, ADMELOG) 100 unit/mL injection 0-5 Units 0-5 Units, subcutaneous, 3 times daily with meals, First dose on Thu08/01/22 at 1808, Blood glucose mg/dL: 149 or less: No [...] NPO Status, Indications: Diabetes MellitusIndications:Diabetes Mellitus Given 08/02/2022 8:33 AM INFORMATICS CONSULTANT 4 Units Left Upper Arm insulin lispro (HumaLOG, ADMELOG) 100 unit/mL injection 0-5 Units 0-5 Units, subcutaneous, Nightly, First dose on Thu08/02/22 at 2100, Blood glucose mg/dL: 149 or [...] NPO Status, Indications: Diabetes MellitusIndications:Diabetes Mellitus Given 08/06/2022 9:21 PM INFORMATICS CONSULTANT 2 Units Left Upper Arm Given 08/05/2022 8:48 PM INFORMATICS CONSULTANT 3 Units Le ft Lower Abdomen Given 08/04/2022 9:30 PM INFORMATICS CONSULTANT 3 Units Le ft Lower Abdomen insulin lispro (HumaLOG, ADMELOG) 100 unit/mL injection 10 Units 10 Units, subcutaneous, 3 times daily with meals, First dose on Thu08/06/22 at 1800 Given 08/07/2022 5:21 PM INFORMATICS CONSULTANT 10 Units Right Lower Abdomen Given 08/07/2022 12:41 PM INFORMATICS CONSULTANT 10 Units L eft Lower Abdomen Given 08/07/2022 8:13 AM INFORMATICS CONSULTANT 10 Units Le ft Lower Abdomen losartan (COZAAR) tablet 25 mg 25 mg, oral, Daily, First dose on Thu08/02/22 at 1245, On hold since Thu08/02/2022 at 1212 until manually unheld multivit tzishqam-naee-QR-calcium (THERA-M) tablet 1 tablet 1 tablet, oral, Daily, First dose on Thu08/02/22 at 0900 Given 08/07/2022 8:20 AM INFORMATICS CONSULTANT 1 tablet Given 08/06/2022 8:10 AM INFORMATICS CONSULTANT 1 tablet Given 08/05/2022 12:51 PM INFORMATICS CONSULTANT 1 tablet ondansetron (ZOFRAN) injection 4 mg 4 mg, intravenous, Administer over 2 Minutes, Every 6 hours PRN, nausea, vomiting, if not tolerating PO, Starting on Thu08/01/22 at 1807, Indications: Nausea and VomitingIndications:Nausea and Vomiting ondansetron ODT (ZOFRAN-ODT) disintegrating tablet 4 mg 4 mg, oral, Every 6 hours PRN, nausea, vomiting, Starting on Thu08/01/22 at 1807, Indications: Nausea and VomitingIndications:Nausea and Vomiting polyethylene glycol (MIRALAX) packet 17 g 17 g, oral, Daily, First dose on Thu08/01/22 at 1818, Indications: constipationIndications:constipation Given 08/07/2022 8:20 AM INFORMATICS CONSULTANT 17 g Given 08/06/2022 8:10 AM INFORMATICS CONSULTANT 17 g Given 08/03/2022 8:56 AM INFORMATICS CONSULTANT 17 g pregabalin (LYRICA) capsule 150 mg 150 mg, oral, Nightly, First dose on Thu08/01/22 at 2100 Given 08/06/2022 9:03 PM INFORMATICS CONSULTANT 150 mg Given 08/05/2022 8:48 PM INFORMATICS CONSULTANT 150 mg Given 08/04/2022 9:31 PM INFORMATICS CONSULTANT 150 mg regadenoson (LEXISCAN) 0.4 mg/5 mL injection 0.4 mg 0.4 mg, intravenous, Once, On Thu08/05/22 at 1015, For 1 dose, Intra-Procedure (CV), Administer IV push over 10 seconds., Indications: Myocardial Perfusion Imaging AdjunctIndications:Myocardial Perfusion Imaging Adjunct Given 08/05/2022 9:51 AM INFORMATICS CONSULTANT 0.4 mg risperiDONE (RisperDAL) tablet 2 mg 2 mg, oral, Nightly, First dose on Thu08/01/22 at 2100 Given 08/06/2022 9:05 PM INFORMATICS CONSULTANT 2 mg Given 08/05/2022 8:48 PM INFORMATICS CONSULTANT 2 mg Given 08/04/2022 9:31 PM INFORMATICS CONSULTANT 2 mg sodium chloride 0.9% bolus 500 mL 500 mL, intravenous, at 500 mL/hr, Administer over 1 Hours, Once, On Thu08/01/22 at 1558, For 1 dose New Bag 08/01/2022 5:28 PM INFORMATICS CONSULTANT 500 mL 500 mL/hr sodium chloride 0.9% flush 10 mL 10 mL, intravenous, As needed, line care, Starting on Thu08/05/22 at 0944, Intra-Procedure (CV) Given 08/05/2022 12:52 PM INFORMATICS CONSULTANT 10 mL Given 08/05/2022 9:51 AM INFORMATICS CONSULTANT 10 mL sodium chloride 0.9% infusion 75 mL/hr, intravenous, Continuous, Starting on Thu08/01/22 at 1558 New Bag 08/01/2022 11:59 PM INFORMATICS CONSULTANT 75 mL/hr 75 mL/hr Rate/Dose Verify 08/01/2022 10:45 PM INFORMATICS CONSULTANT 75 mL/hr 75 mL/ hr Rate/Dose Change 08/01/2022 7:53 PM INFORMATICS CONSULTANT 75 mL/hr 75 mL/h r tc-99m tetrofosmin (MYOVIEW) injection 11 millicurie 11 millicurie, intravenous, Once in imaging, radiopharmaceutical, Starting on Thu08/05/22 at 0823, For 1 dose, Indications: Diagnostic RadiographyIndications:Diagnostic Radiography Given 08/05/2022 8:10 AM INFORMATICS CONSULTANT 11 millicuries tc-99m tetrofosmin (MYOVIEW) injection 32.1 millicurie 32.1 millicurie, intravenous, Once in imaging, radiopharmaceutical, Starting on Thu08/05/22 at 0951, For 1 dose, Indications: Diagnostic RadiographyIndications:Diagnostic Radiography Given 08/05/2022 9:51 AM INFORMATICS CONSULTANT 32.1 millicuries documented in this encounter Discontinued Medications Medication Sig Discontinue Reason Start Date End Da te insulin glargine 100 unit/mL (3 mL) pen for injectionIndications:T ype 2 diabetes mellitus with diabetic neuropathy, with long-term current use of insulin ([facility]) Inject 34 Units under the skin nightly Reorder 05/26/2022 08/07/2022 multivitamin with minerals tablet Take 1 tablet by mouth daily Stop Taking at Discharge 08/07/2022 capsaicin (ZOSTRIX) 0.025 % cream Apply topically 2 (two) times a day Stop Taking at Discharge 08/13/2021 08/07/2022 ketoconazole (NIZORAL) 2 % creamIndications:Press ure injury of buttock, stage 1, unspecified laterality Apply topically 2 (two) times a day Stop Taking at Discharge 01/14/2022 08/07/2022 valsartan (DIOVAN) 40 mg tablet Take 1 tablet (40 mg total) by mouth daily Stop Taking at Discharge 02/12/2022 08/07/2022 carvediloL (COREG) 3.125 mg tabletIndications:Hype rtension associated with diabetes (HCC) Take 1 tablet (3.125 mg total) by mouth 2 (two) times a day with meals Stop Taking at Discharge 04/29/2022 08/07/2022 lidocaine (LIDODERM) 5 %Indications:pain Place 1 patch on the skin daily. apply on patch to the painful area once every day and leave on for 12 hours then off for 12 hours. Rx# [id number] in home 05/02/22 per Hanny Cruz PTA entered by Tamela Swanson RN 05/04/22 Indications: pain Stop Taking at Discharge 08/07/2022 documented as of this encounter Active and Recently Administered Medications Times are shown in INFORMATICS CONSULTANT. Scheduled Medication Order 08/05/2022 08/06/2022 08/07/2022 apixaban (ELIQUIS) tablet 5 mg 5 mg, oral, Every 12 hours, First dose on Thu08/01/22 at 1818, Nurse to discontinue heparin infusion order and associated bolus at first administration of apixaban using 'order condition met' order source, Indications: VTE Prophylaxis 0610 (Given - Provider: Leslie Milligan RN)1818 (Due) 0519 (Given - Provider: Leslie Milligan RN)1759 (Given - Provider: Jane Jackson, ALIREZA) 0637 (Given - Provider: Laura Cabrera, ALIREZA)172 (Given - Provider: Jane Jackson, ALIREZA) atorvastatin (LIPITOR) tablet 20 mg 20 mg, oral, Daily, First dose on Thu08/01/22 at 1818 1252 (Given - Provider: Leslie Aquino RN) 0811 (Given - Provider: Jane Jackson RN) 0820 (Given - Provider: Jane Jackson RN) benztropine (COGENTIN) tablet 1.5 mg 1.5 mg, oral, Nightly, First dose on Thu08/01/22 at 2100, Indications: drug-induced extrapyramidal reaction 2047 (Given - Provider: Leslie Milligan RN) 2104 (Given - Provider: Laura Cabrera, ALIREZA) carvediloL (COREG) tablet 6.25 mg 6.25 mg, oral, 2 times daily with meals (bkfst, dinner), First dose (after last modification) on Thu08/03/22 at 1800, Hold for SBP< 110 1251 (Given - Provider: Leslie Aquino RN)1743 (Given - Provider: Leslie Aquino RN) 0810 (Given - Provider: Jane Jackson, ALIREZA)1759 (Given - Provider: Jane Jackson RN) 0814 (Given - Provider: Jane Jackson RN)1721 (Given - Provider: Jane Jackson, ALIREZA) cefTRIAXone (ROCEPHIN) 2,000 mg/20 mL in sterile water (premix) 2,000 mg (CANCELED) 2,000 mg, intravenous, at 1,200 mL/hr, Administer over 1 Minutes, Every 24 hours scheduled, First dose (after last modification) on Thu08/03/22 at 0900, Indications: Urinary Tract/Genitourinary Infection 1252 (Given - Provider: Leslie Aquino RN) 0810 (Given - Provider: Jane Jackson, ALIREZA) famotidine (PEPCID) tablet 10 mg 10 mg, oral, Nightly, First dose on Thu08/01/22 at 2100 2051 (Given - Provider: Leslie Milligan RN) 210 (Given - Provider: Laura Cabrera, ALIREZA) ferrous sulfate delayed release tablet 65 mg of elemental iron 65 mg of elemental iron, oral, Daily with breakfast, First dose on Thu08/02/22 at 0800, 325 MG OF FERROUS SULFATE = 65 MG OF ELEMENTAL IRON, Indications: Iron Deficiency Anemia 1251 (Given - Provider: Leslie Aquino RN) 0810 (Given - Provider: Jane Jackson RN) 0814 (Given - Provider: Jane Jackson RN) furosemide (LASIX) tablet 40 mg 40 mg, oral, 2 times daily, First dose on Thu08/01/22 at 2100, Hold for SBP< 110, Indications: hypertension 0900 (Dose Auto Held - Provider: Lupillo Doe MD)2100 (Not Given - Provider: Leslie Milligan RN - Reason: Other - Comment: autoheld) 0900 (Dose Auto Held - Provider: Lupillo Doe MD)1337 (Unheld by Provider - Provider: Marsha Marte NP)210 (Given - Provider: Laura Cabrera RN) 0820 (Given - Provider: Jane Jackson, ALIREZA) hydrALAZINE (APRESOLINE) tablet 25 mg 25 mg, oral, 3 times daily, First dose on Thu08/02/22 at 1600, Indications: hypertension 1251 (Given - Provider: Leslie Aquino RN)1743 (Given - Provider: Leslie Aquino RN)2058 (Hold - Provider: Leslie Milligan RN - Reason: See Provider Order) 0810 (Given - Provider: Jane Jackson RN)1625 (Given - Provider: Jane Jackson RN)2109 (Given - Provider: Laura Cabrera, RN) 0820 (Given - Provider: Jane Jackson, ALIREZA)1527 (Given - Provider: Jane Jackson, ALIREZA) insulin glargine (LANTUS, SEMGLEE) 100 unit/mL injection 15 Units (CANCELED) 15 Units, subcutaneous, Nightly, First dose on 08/02/22 at 2100, Do not mix with other insulins 2048 (Given - Provider: Leslie Milligan RN) insulin glargine (LANTUS, SEMGLEE) 100 unit/mL injection 25 Units 25 Units, subcutaneous, Nightly, First dose (after last modification) on Thu08/06/22 at 2100, Do not mix with other insulins 2122 (Given - Provider: Laura Cabrera RN) insulin lispro (HumaLOG, ADMELOG) 100 unit/mL injection 0-10 Units 0-10 Units, subcutaneous, 3 times daily with meals, First dose on 08/02/22 at 1200, Blood glucose mg/dL: 149 or [...] hold for NPO Status, Indications: Diabetes Mellitus 1237 (Not Given - Provider: Leslie Aquino RN - Reason: NPO - Comment: pt left for procedure before nursing could admin med.)1252 (Given - Provider: Leslie Aquino RN)1743 (Given - Provider: Leslie Aquino RN) 0811 (Given - Provider: Jane Jackson RN)1231 (Given - Provider: Jane Jackson RN)1800 (Given - Provider: Jane Jackson RN) 0813 (Given - Provider: Jane Jackson RN)1241 (Given - Provider: Jane Jackson RN)1722 (Given - Provider: Jane Jackson RN) insulin lispro (HumaLOG, ADMELOG) 100 unit/mL injection 0-5 Units 0-5 Units, subcutaneous, Nightly, First dose on Thu08/02/22 at 2100, Blood glucose mg/dL: 149 or [...] hold for NPO Status, Indications: Diabetes Mellitus 2047 (Given - Provider: Leslie Milligan RN) 2120 (Given - Provider: Laura Cabrera RN) insulin lispro (HumaLOG, ADMELOG) 100 unit/mL injection 10 Units 10 Units, subcutaneous, 3 times daily with meals, First dose on Thu08/06/22 at 1800 1800 (Given - Provider: Jane Jackson RN) 0813 (Given - Provider: Jane Jackson RN)1241 (Given - Provider: Jane Jackson RN)1721 (Given - Provider: Jane Jackson RN) losartan (COZAAR) tablet 25 mg 25 mg, oral, Daily, First dose on 08/02/22 at 1245, On hold since Thu08/02/2022 at 1212 until manually unheld 0900 (Dose Auto Held - Provider: Lupillo Doe MD) 0900 (Dose Auto Held) 0900 (Dose Auto Held) multivit epuyzwhg-vdky-JG-calcium (THERA-M) tablet 1 tablet 1 tablet, oral, Daily, First dose on 08/02/22 at 0900 1251 (Given - Provider: Leslie Aquino RN) 0810 (Given - Provider: Jane Jackson RN) 0820 (Given - Provider: Jane Jackson RN) polyethylene glycol (MIRALAX) packet 17 g 17 g, oral, Daily, First dose on Thu08/01/22 at 1818, Indications: constipation 1259 (Not Given - Provider: Leslie Miles, RN - Reason: Patient/family refused) 0810 (Given - Provider: Jane Jackson, ALIREZA) 0820 (Given - Provider: Jane Jackson, ALIREZA) pregabalin (LYRICA) capsule 150 mg 150 mg, oral, Nightly, First dose on Thu08/01/22 at 2100 2047 (Given - Provider: Leslie Milligan RN) 2102 (Given - Provider: Laura Cabrera, RN) regadenoson (LEXISCAN) 0.4 mg/5 mL injection 0.4 mg (COMPLETED) 0.4 mg, intravenous, Once, On Thu08/05/22 at 1015, For 1 dose, Intra-Procedure (CV), Administer IV push over 10 seconds., Indications: Myocardial Perfusion Imaging Adjunct 09 (Given - Provider: Xenia Willis RN) risperiDONE (RisperDAL) tablet 2 mg 2 mg, oral, Nightly, First dose on Thu08/01/22 at 2100 2047 (Given - Provider: Leslie Milligan RN) 2104 (Given - Provider: Laura Cabrera RN) PRN Medication Order 08/05/2022 08/06/2022 08/07/2022 acetaminophen (TYLENOL) tablet 650 mg 650 mg, oral, Every 4 hours PRN, 1st line for pain, Starting on Thu08/01/22 at 1807, Indications: Pain albuterol HFA (PROVENTIL HFA,VENTOLIN HFA,PROAIR HFA) 90 mcg/actuation inhaler 2 puff 2 puff, inhalation, Every 4 hours PRN (director of corporate responsibility), wheezing, shortness of breath, Starting on Thu08/01/22 at 1819 dextrose (D10W) 10% bolus 250 mL(Linked Group 1) 250 mL, intravenous, at 1,000 mL/hr, Administer over 15 Minutes, Every 15 min PRN, blood glucose less than 70 mg/dL and UNABLE to swallow/take PO glucose/juice., Starting on 08/02/22 at 1038, After treatment for hypoglycemia, recheck BG followed [...] glucose less than 70 mg/dL, Starting on 08/02/22 at 1038, If patient is alert and able to [...] each episode of hypoglycemia., Indications: hypoglycemic disorder docusate sodium (COLACE) capsule 100 mg 100 mg, oral, 2 times daily PRN, constipation, Starting on Thu08/01/22 at 1841, Indications: constipation glucagon injection 1 mg 1 mg, intramuscular, Every 30 min PRN, low blood sugar, blood glucose less than 70 mg/dL AND no IV access AND unable to take PO glucose/juice., Starting on 08/02/22 at 1038, After Glucagon is administered, position patient on [...] vomiting, if not tolerating PO, Starting on Thu08/01/22 at 1807, Indications: Nausea and Vomiting ondansetron ODT (ZOFRAN-ODT) disintegrating tablet 4 mg(Linked Group 2) 4 mg, oral, Every 6 hours PRN, nausea, vomiting, Starting on Thu08/01/22 at 1807, Indications: Nausea and Vomiting sodium chloride 0.9% flush 10 mL 10 mL, intravenous, As needed, line care, Starting on Thu08/05/22 at 0944, Intra-Procedure (CV) 0951 (Given - Provider: Xenai Willis RN)1252 (Given - Provider: Leslie Aquino RN) tc-99m tetrofosmin (MYOVIEW) injection 11 millicurie (COMPLETED) 11 millicurie, intravenous, Once in imaging, radiopharmaceutical, Starting on Thu08/05/22 at 0823, For 1 dose, Indications: Diagnostic Radiography 0810 (Given - Provider: Cee Lopez, RT) tc-99m tetrofosmin (MYOVIEW) injection 32.1 millicurie (COMPLETED) 32.1 millicurie, intravenous, Once in imaging, radiopharmaceutical, Starting on Thu08/05/22 at 0951, For 1 dose, Indications: Diagnostic Radiography 0951 (Given - Provider: Cee Lopez, RT) Linked Groups Order Group 1: dextrose oral liquid liquid 15 gJump to med 15 g, oral, Every 15 min PRN, low blood sugar, blood glucose less than 70 mg/dL, Starting on 08/02/22 at 1038, If patient is alert and able to [...] UNABLE to swallow/take PO glucose/juice., Starting on 08/02/22 at 1038, After treatment for hypoglycemia, recheck BG followed [...] 6 hours PRN, nausea, vomiting, Starting on Thu08/01/22 at 1807, Indications: Nausea and Vomiting Or ondansetron (ZOFRAN) injection 4 mgJump to med 4 mg, intravenous, Administer over 2 Minutes, Every 6 hours PRN, nausea, vomiting, if not tolerating PO, Starting on Thu08/01/22 at 1807, Indications: Nausea and Vomiting documented in this encounter Orders Medications Ordered That Flip ht Not Have Been Administered Count Last Ordered Date First Ordered Date dextrose (D10W) 10% bolus 250 mL 2 08/02/19 23 08/01/2022 dextrose oral liquid liquid 15 g 2 08/02/19 23 08/01/2022 glucagon injection 1 mg 2 08/02/202207/23 influenza quadrivalent 2021- 2022 (FLUZONE HIGH DOSE) 240 mcg/0.7 mL vaccine (HIGH DOSE age 65 years and up) 0.7 mL 1 08/02/2022 losartan (COZAAR) tablet 25 mg 2 08/02/2022 08/01/2022 albuterol HFA (PROVENTIL HFA ,VENTOLIN HFA,PROAIR HFA) 90 mcg/actuation inhaler 2 puff 1 08/01/2022 docusate sodium (COLACE) capsule 100 mg 1 0 08/01/2022 ferrous sulfate tablet 325 mg 1 08/01/2022 fupyxdkr-omk-gbexbcb glucona te (CENTRUM) 0.6 mg iron/mL oral liquid 15 mL 1 08/01/2022 ondansetron (ZOFRAN) injection 4 mg 1 08/01 ondansetron ODT (ZOFRAN-ODT) disintegrating tablet 4 mg 1 08/01/2022 Lab Orders Without Results Count Last Ordered D ate First Ordered Date POCT GLUCOSE DEVICE 26 08/05/2022 08/01/19 Nursing Count Last Ordered Date First Orde red Date FOLLOW UP WITH ESTABLISHED PROVIDER 1 08/07 OTHER FOLLOW UP 2 08/07/2022 ACTIVITY 1 08/01/2022 CONTINUOUS PULSE OXIMETRY 1 08/01/2022 NOTIFY PROVIDER (SPECIFY) 5 08/01/2022 WEIGH PATIENT 1 08/01/2022 Consult Count Last Ordered Date First Orde red Date IP CONSULT TO CARDIOLOGY 1 08/01/2022 IV Count Last Ordered Date First Orde red Date SALINE LOCK IV 1 08/01/2022 Admission Count Last Ordered Date First Orde red Date ADMIT TO INPATIENT 1 08/01/2022 Discharge Count Last Ordered Date First Orde red Date DISCHARGE PATIENT 1 08/07/2022 CORE MEASURES Count Last Ordered Date First Ord ered Date REASON FOR NO VTE PROPHYLAXIS AT ADMISSION 1 08/01/2022 documented in this encounter Additional Health Concerns Infection Onset Date Last Indicated Resolved Time COVID: Suspected 08/01/2022 08/01/2022 08/01/2022 2:28 PM INFORMATICS CONSULTANT documented as of this encounter Care Teams Greenhouse Superintendent Relationship Specialty Start Date End Date Cherelle Corcoran MD PCP - General Family Medicine 08/30/19 Mark Queen MD Consulting Physician Infectious Diseases 01/10/20 Melania Lee RN [address] [place] [address] [address] [place] [address] [employer] Operator 07/22/22 08/21/22 documented as of this encounter
--- OUTSIDE RECORDS SUMMARY | 2024-07-04 04:12 | XMS_ITS | Encounter Summary ---
Author Organization [facility] Home Care Servic es Address [address] [place] [address] Phone Care Team Providers Care Shock Absorption Floor Layer Name Role Phone Cherelle Corcoran MD Primary Care Pro vider Mark Queen MD Unavailable [phone] Reason for Visit * Auth/Cert Specialty Diagnoses / Procedures Referred By Maryse lama Referred To Contact Referral ID Status Reason Start Date Expiration Date Visits Re quested Visits Authorized [id number] 1 1 Encounter Details Date Type Department Care Team (Late st Contact Info) Description 06/04/2022 Home Care Visit [facility] Home Health - [address] [place] [address] Jewel Sow, [facility] TELEPHONE ENCOUNTER Social History Tobacco Use Types [...] you attend chur ch or anabaptism services? Never 09/10/2021 Do you belong to [...] points, staff should administer the PHQ-9) 0 09/10/2021 Hunger Vital Sign Answer Date Recorded Within [...] slept in a mcc (including now)? No 09/10/2021 Comments No Sex and Gender Information Value Date Recorded Sex Assigned at Not on file Legal Sex Female 9:03 AM FIELD ASSESSOR Gender Identity Female 02/08/2020 6:39 PM CDT Sexual Orientation Not on file documented as of this encounter Plan of Treatment Upcoming Encounters Date Type Department Care Team (Latest Contact Info) Description 07/13/2024 9:00 AM FIELD ASSESSOR Hospital Encounter [facility] [address] [place] [address] Jaya Grier MD [address] [facility] [address] [place] [address] 07/13/2024 9:00 AM FIELD ASSESSOR - 07/13/2024 9:30 AM FIELD ASSESSOR Surgery [facility] [address] [place] [address] Jaya Grier MD [address] [facility] [address] [place] [address] ESOPHAGOGASTRODUODENOSCOPY Scheduled Procedures Name Priority Associated Diagnoses Date/Ti me ESOPHAGOGASTRODUODENOSCOPY Anemia, unspecified type Gastritis without bleeding, unspecified chronicity, unspecified gastritis type 07/13/2024 9:00 AM FIELD ASSESSOR COLONOSCOPY Iron deficiency anemia due to chronic blood loss documented as of this encounter Visit Diagnoses Not on filedocumented in this encounter Care Teams Shock Absorption Floor Layer Relationship Specialty Start Date End Date Cherelle Corcoran MD PCP - General Family Medicine 08/30/19 Mark Queen MD Consulting Physician Infectious Diseases 01/10/20 documented as of this encounter
--- OUTSIDE RECORDS SUMMARY | 2024-07-04 04:12 | XMS_ITS | Encounter Summary ---
Author Organization [facility] Healthcare Address [address] [place] [address] Care Team Providers Care Rn Behavioral Health Name Role Phone Cherelle Corcoran MD Primary Care Pro vider Mark Queen MD Unavailable [phone]- [phone] Melania Lee RN Unavailable [phone] Encounter Details Date Type Department Care Team (Late st Contact Info) Description 08/01/2022 Documentation [facility] OP Occup Therapy [address] [place] [id number] Alison Silverio, OT Social History Tobacco Use Types Packs/Day [...] do you attend chur or protestant services? Never 09/10/2021 Do you belong to [...] on file Legal Sex Female 9:03 AM SPEAKING UNIT ASSEMBLER Gender Identity Female 02/08/2020 6:39 PM CDT Sexual Orientation Not on file documented as of this encounter Progress Notes * Alison Silverio OT - 08/01/2022 9:00 AM CST Patient came to session with daughter present. Was very lethargic and was falling asleep. Dtr reports this is not usually like her. Took BP with reading of 132/57. Lorie REGIONAL ACCOUNT DIRECTOR took blood sugar readingwith reading of 290. Pt's O2 was 93% and HR was 80s. Called Dr. Corcoran's office and they suggested pt go to ER. Pt transferred to clinic [facility] and was assisted to car with CGA for car transfer safety. Issued paper with all readings for daughter to take with her. No further questions/concerns. Alison Silverio OTR/L [facility] Healthcare [email or web address] KING UNIT ASSEMBLER documented in this encounter Plan of Treatment Upcoming Encounters Date Type Department Care Team (Latest Contact Info) Description 07/13/2024 9:00 AM SPEAKING UNIT ASSEMBLER Hospital Encounter [facility] [address] [place] [address] Jaya Grier MD [facility] [address] [place] [address] 07/13/2024 9:00 AM SPEAKING UNIT ASSEMBLER - 07/13/2024 9:30 AM SPEAKING UNIT ASSEMBLER Surgery [facility] [address] [place] [address] Jaya Grier MD [address] [facility] [address] [place] [address] ESOPHAGOGASTRODUODENOSCOPY Scheduled Procedures Name Priority Associated Diagnoses Date/Ti me ESOPHAGOGASTRODUODENOSCOPY Anemia, unspecified type Gastritis without bleeding, unspecified chronicity, unspecified gastritis type 07/13/2024 9:00 AM SPEAKING UNIT ASSEMBLER COLONOSCOPY Iron deficiency anemia due to chronic blood loss documented as of this encounter Visit Diagnoses Not on filedocumented in this encounter Care Teams Rn Behavioral Health Relationship Specialty Start Date End Date Cherelle Corcoran MD PCP - General Family Medicine 08/30/19 Mark Queen MD Consulting Physician Infectious Diseases 01/10/20 Melania Lee, RN [address] [place] [address] [address] [place] [address] Wood Boatbuilder Apprentice 07/22/22 08/21/22 documented as of this encounter
--- OUTSIDE RECORDS SUMMARY | 2024-07-04 04:12 | XMS_ITS | Encounter Summary ---
Author Organization [facility] Medical Group Address [address] [facility] [address] [place] [address] Care Team Providers Care Organ Builder Name Role Phone Duane Callahan MD Primary Care Pro vider Mark Queen MD Unavailable [phone] Melania Lee RN Unavailable [phone] Anam Costa LCSW Unavailable Unavailabl e Reason for Visit * Reason Comments Hospital Follow Up Encounter Details Date Type Department Care Team ([facility] st Contact Info) Description 08/14/2022 10:00 AM SHIP CAPTAIN Office Visit [facility] Medical [facility] Primary Care [facility] [address] [place] [address] Duane Callahan MD [address] [place] [address] Type 2 diabetes mellitus with diabetic neuropathy, with long-term current use of insulin (CMS/HCC) (HCC) (Primary Dx); Other diabetic neurological complication associated with type 2 diabetes mellitus (HCC); Toe necrosis (CMS/HCC) (HCC); Hypertension associated with diabetes (HCC); Hyperlipidemia associated with type 2 diabetes mellitus (HCC); 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 2 diabetes mellitus (CMS/HCC) (HCC); Left leg DVT (CMS/HCC) (HCC); Late onset Alzheimer dementia, unspecified dementia severity, unspecified whether behavioral, psychotic, or mood disturbance or anxiety (HCC); Parkinsonism, unspecified Parkinsonism type (HCC); Schizoaffective [...] in a senior care (including now)? No 08/08/2022 Comments No Sex and Gender Information Value Date Recorded Sex Assigned at Not on file Legal Sex Female 9:03 AM SHIP CAPTAIN Gender Identity Female 02/08/2020 6:39 PM CDT Sexual Orientation Not on file documented as of this encounter Last Filed Vital Signs Vital Sign Reading Time Taken Comments Blood Pressure 126/70 08/14/2022 10:19 AM SHIP CAPTAIN Pulse 80 08/14/2022 10:19 AM SHIP CAPTAIN Temperature 36.2 ??C (97.1 ??F) 08/14/2022 10:[address] Respiratory Rate 18 08/14/2022 10:19 AM SHIP CAPTAIN Oxygen Saturation 97% 08/14/2022 10:19 AM SHIP CAPTAIN Inhaled Oxygen Concentration - - Weight 68.5 kg (151 lb) 08/14/2022 10:19 AM SHIP CAPTAIN Height 157.5 cm (5' 2 ) 08/14/2022 10:19 AM SHIP CAPTAIN Body Mass Index 27.62 08/14/2022 10:19 AM SHIP CAPTAIN documented in this encounter Patient Instructions * Patient Instructions* Duane Callahan MD - 08/14/2022 10:00 AM SHIP CAPTAIN Call central scheduling at [phone] to schedule brain MRI. CAPTAIN documented in this encounter Progress Notes * Duane Callahan MD - 08/14/2022 10:00 AM CST Images from the original note [...] I have noted any changes. Admission Date: 08/01/22 Discharge Date: 08/07/22 Date of Initial Post-discharge Interactive Contact: 08/08/22 Complexity of Medical Decision Making: high Metabolic Lab Results: Body mass index is 27.62 kg/m??. Glucose: Glucose Date Value Ref Range Status 08/07/2022 219 (H) 70 - 199 mg/dL Final Comment: [...] Glucose, POC Date Value Ref Range Status 08/07/2022 159 70 - 199 mg/dL Final Lab Results Component Value Date WBC 9.0 08/07/2022 HGB 9.2 (L) 08/07/2022 HCT 29.9 (L) 08/07/2022 MCV 95.2 08/07/2022 Lab Results Component Value Date GLUCOSE 159 08/07/2022 CALCIUM 9.6 08/07/2022 SODIUM 141 08/07/2022 POTASSIUM 4.9 08/07/2022 CO2 22 08/07/2022 CHLORIDE 106 08/07/2022 BUNSER 55 (H) 08/07/2022 CREATININE 2.24 (H) 08/07/2022 Major Procedures and Tests: Major Procedures and Tests Performed During Inpatient Stay: Studies Pending at Discharge (Includes Lab and Radiology) None Interval History: Admitted for AMS, urine culture negative. Weakness, had physical therapy/OT. Elevated trops, stressnegative. Diabetes mellitus: on trulicity 1.5mg weekly, 25 units lantus & 12 units humalog TIDAC, followswith endo Neuropathy: on lyrica 150mg nightly R great toe necrosis, following with podiatry. Hypertension: on 6.25mg coreg twice a day, valsartan held Hyperlipidemia: on 20mg atorvastatin Ckd: following with nephro Chronic DVT: on eliquis 5mg twice a day Alzheimer's dementia: following with neurology, getting brain MRI, considering aricept or namenda Parkinsonism: following with neurology, increased cogentin to 1.5mg nightly Schizophrenia: following with psychiatry, on resperidone 2mg nightly Problem Parkinsonism (Hcc) Left Leg Dvt (Cms/Hcc) (Hcc) Toe Necrosis (Cms/Hcc) (Hcc) 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 2 diabetes mellitus (CMS/HCC) (HCC) Dementia (Hcc) Hyperlipidemia associated with type 2 diabetes mellitus (HCC) Hypertension Associated With Diabetes (Hcc) Schizoaffective Disorder, Bipolar Type (Cms/Hcc) (Hcc) Type 2 diabetes mellitus with diabetic neuropathy, with long-term current use of insulin (CMS/HCC) (HCC) Diabetic Neuropathy (Hcc) Current Outpatient Medications Medication [...] 90 tablet 1 flash glucose scanning reader (EverConnectStyle Madhav 2 [place]) [facility] Use to continually monitor glucose 1 each [...] day with meals 33 mL 1 lancets [facility] Check blood sugar up to 3 times a day 100 each 3 miscellaneous medical supply (Blood Pressure Cuff) [facility] Use to check blood pressure daily 1 each 1 OneTouch Verio test strips strip TEST 3 TO 4 TIMES DAILY 400 each 1 polyethylene glycol (MIRALAX) 17 gram packet Take 1 packet (17 g total) by mouth daily pregabalin (LYRICA) 150 mg capsule Take 1 capsule (150 mg total) by mouth nightly 30 capsule 2 syringe with needle, insulin (INSULIN SYRINGE-NEEDLE U-100 [facility]) 3 times a day risperiDONE (RisperDAL) 2 mg tablet Take 1 tablet (2 mg total) by mouth nightly 30 tablet 11 No current facility-administered medications for this visit. Review of Systems: Review of Systems Respiratory: Negative for shortness of breath. Cardiovascular: Negative for chest pain. Neurological: Positive for light-headedness (sometimes). Physical Exam: BP 126/70 (BP Location: Left arm, Patient Position: Sitting) Pulse 80 Temp 36.2 ??C (97.1 ??F) (Temporal) Resp 18 Ht 157.5 cm (5' 2 ) Wt 68.5 kg (151 lb) SpO2 97% BMI 27.62 kg/m?? Physical Exam Gen: NAD, comfortable, appears as stated age Eyes: no conjunctival injection, EOMI ENMT: external ears symmetric CV: RRR without murmur, rub, gallop. Pulm: good respiratory effort, CTAB no rhonchi, rales, or wheezes Skin: no rashes or nodules, warm and dry Ext: No lower extremity edema MSK/Neuro: symmetric limb movement Psych: alert and oriented to person/place Assessment/Plan Diagnoses and all orders for this visit: Type 2 diabetes mellitus with diabetic neuropathy, with long-term current use of insulin ([facility]) ([facility]) (Primary) Assessment & Plan: Following with endocrine Continue lantus, 12 units humalog TIDAC & 1.5mg trulicity Other diabetic neurological complication associated with type 2 diabetes mellitus ([facility]) Assessment & Plan: Continue lyrica 150mg nightly Toe necrosis ([facility]) ([facility]) Assessment & Plan: Following with podiatry Hypertension associated with diabetes ([facility]) Assessment & Plan: Blood pressure at goal, continue coreg 6.25mg twice a day Hyperlipidemia associated with type 2 diabetes mellitus ([facility]) Assessment & Plan: Continue statin 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 2 diabetes mellitus ([facility]) ([facility]) Assessment & Plan: Following with nephrology Left leg DVT ([facility]) ([facility]) Assessment & Plan: Continue eliquis Late onset Alzheimer dementia, unspecified dementia severity, unspecified whether behavioral, psychotic, or mood disturbance or anxiety ([facility]) Assessment & Plan: Following with neurology, reviewed note Given number to schedule MRI Parkinsonism, unspecified Parkinsonism type ([facility]) Assessment & Plan: Following with neurology, reviewed note On cogentin Schizoaffective disorder, bipolar type ([facility]) ([facility]) Assessment & Plan: Following with psychiatry On risperidone Coordination of Home care services and follow-up with specialist appointments confirmed. Instructions have been provided to and reviewed with the patient/rn home care prior to discharge. Duane Callahan MD CAPTAIN documented in this encounter Miscellaneous Notes * Assessment & Plan Note - Duane Callahan MD - 08/14/2022 10:46 AM CSTAssociated Problem(s): Toe necrosis (CMS/HCC) (HCC) Following with podiatry CAPTAIN * Assessment & Plan Note - Duane Callahan MD - 08/14/2022 10:46 AM CSTAssociated Problem(s): Parkinsonism (HCC) Following with neurology, reviewed note On cogentin CAPTAIN * Assessment & Plan Note - Duane Callahan MD - 08/14/2022 10:44 AM CSTAssociated Problem(s): Left leg DVT (HCC) (Resolved 11/10/2023) Continue eliquis CAPTAIN * Assessment & Plan Note - Duane Callahan MD - 08/14/2022 10:43 AM CSTAssociated Problem(s): 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 2 diabetes mellitus (CMS/HCC) (HCC) (Deleted) Following with nephrology CAPTAIN * Assessment & Plan Note - Duane Callahan MD - 08/14/2022 10:43 AM CSTAssociated Problem(s): Dementia (HCC) (Deleted) Following with neurology, reviewed note Given number to schedule MRI CAPTAIN * Assessment & Plan Note - Duane Callahan MD - 08/14/2022 10:43 AM CSTAssociated Problem(s): Mixed hyperlipidemia Continue statin CAPTAIN * Assessment & Plan Note - Duane Callahan MD - 08/14/2022 10:42 AM CSTAssociated Problem(s): Primary hypertension Blood pressure at goal, continue coreg 6.25mg twice a day CAPTAIN * Assessment & Plan Note - Duane Callahan MD - 08/14/2022 10:42 AM CSTAssociated Problem(s): Schizoaffective disorder, bipolar type (CMS/HCC) (HCC) (Deleted) Following with psychiatry On risperidone CAPTAIN * Assessment & Plan Note - Duane Callahan MD - 08/14/2022 10:42 AM CSTAssociated Problem(s): Diabetic neuropathy (HCC) (Resolved 05/16/2024) Continue lyrica 150mg nightly CAPTAIN * Assessment & Plan Note - Duane Callahan MD - 08/14/2022 10:41 AM CSTAssociated Problem(s): Type 2 diabetes mellitus with diabetic neuropathy, with long-term current use of insulin (HCC) Following with endocrine Continue lantus, 12 units humalog TIDAC & 1.5mg trulicity CAPTAIN * Addendum Note - Duane Callahan MD - 08/14/2022 10:00 AM SHIP CAPTAIN Addended by: DUANE CALLAHAN on: 08/21/2022 06:40 AM Modules accepted: Level of Service CAPTAIN documented in this encounter Plan of Treatment Upcoming Encounters Date Type Department Care Team (Latest Contact Info) Description 07/13/2024 9:00 AM SHIP CAPTAIN Hospital Encounter [facility] GI Lab [address] [place] [address] Jaya Grier MD [address] [place] [address] DR [address] [place] [address] 07/13/2024 9:00 AM SHIP CAPTAIN - 07/13/2024 9:30 AM SHIP CAPTAIN Surgery [facility] Lab [address] [place] [address] Jaya Grier MD [address] [place] [address] DR [address] [place] [address] ESOPHAGOGASTRODUODENOSCOPY Scheduled Procedures Name Priority Associated Diagnoses Date/Ti az ESOPHAGOGASTRODUODENOSCOPY Anemia, unspecified type Gastritis without bleeding, unspecified chronicity, unspecified gastritis type 07/13/2024 9:00 AM SHIP CAPTAIN COLONOSCOPY Iron deficiency anemia due to chronic blood loss documented as of this encounter Visit Diagnoses Diagnosis Type 2 diabetes mellitus with diabetic neuropathy, with long-term current use of insulin (HCC)- Primary Other diabetic neurological complication associated with type 2 diabetes mellitus (HCC) Toe necrosis (CMS/HCC) (HCC) Hypertension associated with diabetes (HCC) Unspecified essential hypertension Hyperlipidemia associated with type 2 diabetes mellitus (HCC) 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 2 diabetes mellitus (CMS/HCC) (HCC) Left leg DVT (HCC) Late onset Alzheimer dementia, unspecified dementia severity, unspecified whether behavioral, psychotic, or mood disturbance or anxiety (HCC) Parkinsonism, unspecified Parkinsonism type (HCC) Schizoaffective disorder, bipolar type (CMS/HCC) (HCC) Schizoaffective disorder, unspecified condition Anemia, unspecified type Gastritis without bleeding, unspecified chronicity, unspecified gastritis type documented in this encounter Care Teams Organ Builder Relationship Specialty Start Date End Date Duane Callahan MD PCP - General Family Medicine 08/30/19 Mark Queen MD Consulting Physician Infectious Diseases 01/10/20 Jesus, Melania Joel RN [address] [place] [address] [address] [place] [address] Floor Trader 07/22/22 08/21/22 Anam Costa LCSW [address] [facility] [address] [place] [address] Jazz Musician 08/08/22 02/18/23 documented as of this encounter
--- OUTSIDE RECORDS SUMMARY | 2024-07-04 04:12 | XMS_ITS | Encounter Summary ---
Author Organization [facility] Medical Group Address [address] [facility] [address] [place] [address] Care Team Providers Care Faculty Head Name Role Phone Cherelle Corcoran MD Primary Care Pro vider Mark Queen MD Unavailable [phone] Anam CostaW Unavailable Unavailabl Melania Moncada RN Unavailable [phone] Reason for Visit * Reason Onset Date Comments Medical Records Request 08/27/2022 Encounter Details Date Type Department Care Team ([facility] Contact Info) Description 08/27/[address] [facility] Medical Group Primary Care [address] [facility] [address] [place] [address] Cherelle Corcoran MD [address] [place] [address] [address] [place] [address] Medical Records Request Social History Tobacco Use Types Packs/Day [...] slept in a ch[facility] (including now)? No 08/08/2022 Comments No Sex and Gender Information Value Date Recorded Sex Assigned at Not on file Legal Sex Female 9:03 AM ENGAGEMENT QUALITY CONSULTANT Gender Identity Female 02/08/2020 6:39 PM CDT Sexual Orientation Not on file documented as of this encounter Miscellaneous Notes * Telephone Encounter - Sandy Mota MA - 08/27/2022 12:15 PM CST Spoke with Adryan at [facility] and advised him that this request needs to go thru pts endocrinology. He is aware and will contact them. Thanks! GEMENT QUALITY CONSULTANT * Telephone Encounter - Libia Mills - 08/27/2022 10:01 AM CST Medical Records Request Request Type: Records Request Practice Will Complete What records are being requested:medical notes for diabetes and testing frequency and injection frequency Who will the records be sent to (if being sent to another doctor, list the doctor's name and specialty)? [facility] Date Needed: as soon as possible Delivery Method: Fax Fax number to use for return of records: [phone] Caller???s Callback #: [phone] Additional Comments/Concerns: none Does the message need to be routed? Yes-Action Needed GEMENT QUALITY CONSULTANT documented in this encounter Plan of Treatment Upcoming Encounters Date Type Department Care Team (Latest Contact Info) Description 07/13/2024 9:00 AM ENGAGEMENT QUALITY CONSULTANT Hospital Encounter [facility] GI Lab [address] [place] [address] Jaya Grier MD [address] [facility] [address] [address] 07/13/2024 9:00 AM ENGAGEMENT QUALITY CONSULTANT - 07/13/2024 9:30 AM ENGAGEMENT QUALITY CONSULTANT Surgery [facility] GI Lab [address] [place] [address] Jaya Grier MD [address] [facility] [address] [place] [address] ESOPHAGOGASTRODUODENOSCOPY Scheduled Procedures Name Priority Associated Diagnoses Date/Ti ak ESOPHAGOGASTRODUODENOSCOPY Anemia, unspecified type Gastritis without bleeding, unspecified chronicity, unspecified gastritis type 07/13/2024 9:00 AM ENGAGEMENT QUALITY CONSULTANT COLONOSCOPY Iron deficiency anemia due to chronic blood loss documented as of this encounter Visit Diagnoses Not on filedocumented in this encounter Care Teams Faculty Head Relationship Specialty Start Date End Date Cherelle Corcoran MD PCP - General Family Medicine 08/30/19 Mark Queen MD Consulting Physician Infectious Diseases 01/10/20 Anam Costa LCSW Hearing Aid Repair Technician 08/08/22 02/18/23 Melania Lee RN [address] [place] [address] [address] [place] [address] Php Wordpress Developer 08/22/22 12/07/22 documented as of this encounter
--- OUTSIDE RECORDS SUMMARY | 2024-07-04 04:12 | XMS_ITS | Encounter Summary ---
Author Organization [facility] Address [address] [place] [address] Care Team Providers Care Sap Project Manager Name Role Phone Cherelle Corcoran MD Primary Care Pro vider Mark Queen MD Unavailable + [phone] Samples, Melania Joel RN Unavailable Anam Costa LCSW Unavailable Unavailabl e Samples, Melania Joel RN Unavailable [phone] Rudolph Welch MD Unavailable [phone] Markie Ryan MD Unavailable [phone] Nadege Ramírez RN Unavailable [phone] Encounter Details Date Type Department Care Team (Late st Contact Info) Description 07/01/2022 Telephone [facility] Nephrology at [place] [address] [place] [address] Markie Ryan MD [address] [place] [address] Social History Tobacco Use Types Packs/Day Years [...] you attend chur ch or caodaism services? 1 to 4 times per year [...] in a chcf (including now)? No 01/20/2023 Personal Safety Answer Date Recorded Getting School Help Needed Denies 06/07 Comments No Sex and Gender Information Value Date Recorded Sex Assigned at Not on file Legal Sex Female 9:03 AM CHARGE PREPARATION TECHNICIAN Gender Identity Female 02/08/2020 6:39 PM CDT Sexual Orientation Not on file documented as of this encounter Miscellaneous Notes * Addendum Note - Lupe Lobo - 06/30/2023 5:08 PM CSTAddended by: LUPE LOBO on: 06/30/2023 05:08 PM Modules accepted: Orders GE PREPARATION TECHNICIAN * Telephone Encounter - Yessy Christianson MA - 07/01/2022 4:54 PM CST Patients daughter informed. Lab orders entered for [facility] GE PREPARATION TECHNICIAN * Telephone Encounter - Markie Ryan MD - 07/01/2022 4:40 PM CST I see she was just hospitalized with multiple labs drawn. Would check a BMP, CBC and iron panel in a month or so please GE PREPARATION TECHNICIAN * Telephone Encounter - Donna Dwyer - 07/01/2022 4:20 PM CST Did you want the patient to get any labs done prior to appt? Order can be sent to [facility]. [phone] GE PREPARATION TECHNICIAN documented in this encounter Plan of Treatment Upcoming Encounters Date Type Department Care Team (Latest Contact Info) Description 07/13/2024 9:00 AM CHARGE PREPARATION TECHNICIAN Hospital Encounter [facility] Lab [address] [place] [address] Jaya Grier MD [address] [place] [address] 07/13/2024 9:00 AM CHARGE PREPARATION TECHNICIAN - 07/13/2024 9:30 AM CHARGE PREPARATION TECHNICIAN Surgery [facility] GI Lab [address] [place] [address] Jaya Grier MD [address] [place] [address] ESOPHAGOGASTRODUODENOSCOPY Scheduled Procedures Name Priority Associated Diagnoses Date/Ti me ESOPHAGOGASTRODUODENOSCOPY Anemia, unspecified type Gastritis without bleeding, unspecified chronicity, unspecified gastritis type 07/13/2024 9:00 AM CHARGE PREPARATION TECHNICIAN COLONOSCOPY Iron deficiency anemia due to chronic blood loss documented as of this encounter Results * (ABNORMAL) Basic metabolic panel (06/30/2023 5:16 PM CHARGE PREPARATION TECHNICIAN) Sodium 145 135 - 145 mmol/L [facility] Potassium, pl 3.6 3.3 - 4.9 mmol/L [facility] Chloride 109 97 - 110 mmol/L [facility] CO2 27 22 - 32 mmol/L [facility] Anion gap 9 2 - 15 mmol/L [facility] BUN 35(H) 6 - 25 mg/dL [facility] Creatinine 3.03(H) 0.60 - 1.10 mg/dL [facility] Glucose 156 70 - 199 mg/dL [facility] Comment: Interpretive Data Fasting glucose >/= 126 [...] 2022. Calcium 8.8 8.5 - 10.3 mg/dL NILSA DIAS Blood 06/30/2023 5:16 PM CHARGE PREPARATION TECHNICIAN 06/30/2023 5:23 PM CHARGE PREPARATION TECHNICIAN Markie Ryan MD LAB BLOOD ORDERABLES Edited R esult - Final [facility] [address] [place] [address] * (ABNORMAL) Iron profile w/ IBC (06/30/2023 5:16 PM CHARGE PREPARATION TECHNICIAN) Iron 56 35 - 145 mcg/dL NILSA DIAS Comment:Testing performed by : [facility], [address] [place] [address]., [id number] TIBC 180(L) 250 - 400 mcg/dL NILSA ZARATEKECIA Comment:Testing performed by : [facility], [address] [place] [address]., [id number] Transferrin saturation 31 20 - 50 % NILSA DIAS Comment:Testing performed by : [facility], [address] [place] [address]., [id number] Blood 06/30/2023 5:16 PM CHARGE PREPARATION TECHNICIAN 06/30/2023 8:02 PM CHARGE PREPARATION TECHNICIAN Markie Ryan MD LAB BLOOD ORDERABLES Final Re sult CARLOS [facility]QU[facility]EN [facility] [address] [place], [place] [id number] * (ABNORMAL) CBC with auto differential (06/30/2023 5:16 PM CHARGE PREPARATION TECHNICIAN) WBC 9.0 3.8 - 9.9 K/cumm NILSA DIAS Hgb 10.2(L) 11.9 - 15.5 g/dL NILSA ZARATEWK[facility] Hct 32.2(L) 35.6 - 45.5 % NILSA ZARATEWKEC[facility] Plt 334 150 - 400 K/cumm NILSA [facility]AR[facility]WKEC[facility] MPV 10.3 9.1 - 12.3 fL NILSA DIAS RBC 3.41(L) 3.90 - 5.20 M/cumm NILSA [facility] MCV 94.4 81.3 - 96.4 fL NILSA [facility]WK[facility] MCH 29.9 27.1 - 33.3 pg NILSA ZARATEWKECIA MCHC 31.7(L) 32.3 - 35.7 g/dL NILSA ZARATEWKECIA RDW CV 13.8 11.1 - 14.9 % NILSA [facility]WK[facility] RDW SD 47.1 35.7 - 48.1 fL NILSA DIAS NRBC abs 0.00 0.00 - 0.01 K/cumm NILSA DIAS Blood 06/30/2023 5:16 PM CHARGE PREPARATION TECHNICIAN 06/30/2023 5:23 PM CHARGE PREPARATION TECHNICIAN us Markie Ryan MD LAB BLOOD ORDERABLES Final Re sult NILSA DIAS [address] [facility]. Department [place] [address] documented in this encounter Visit Diagnoses Diagnosis [...] COVID: Suspected 08/01/2022 08/01/2022 08/01/2022 2:28 PM CHARGE PREPARATION TECHNICIAN COVID: Suspected 10/02/2022 10/02/2022 10/02/2022 8:14 PM CDT MRSA Comment:Toe 11/08/22, 12/12/22 11/08/2022 12/12/2022 06/10/2023 3:05 AM CHARGE PREPARATION TECHNICIAN COVID: Suspected 12/08/2022 12/08/2022 12/08/2022 8:17 PM CDT documented as of this encounter Care Teams Sap Project Manager Relationship Specialty Start Date End Date Cherelle Corcoran MD PCP - General Family Medicine 08/30/19 Mark Queen MD Consulting Physician Infectious Diseases 01/10/20 Samples, Melania Joel RN [address] [place] [address] [address] [place] [address] Switch Operator 07/22/22 08/21/22 Anam Costa LCSW [address] [place] [address] [address] [place] [address] Patrol Deputy Sheriff 08/08/22 02/18/23 Samples, Melania Joel RN [address] [place] [address] [address] [place] [address] Switch Operator 08/22/22 12/07/22 Rudolph Welch MD [address] [place] [address] Consulting Physician Infectious Diseases 12/05/22 Markie Ryan MD [address] [place] [address] Consulting Physician Nephrology 12/05/22 Nadege Ramírez RN [address] [place] [address] [address] [place] [address] Switch Operator 01/20/23 02/23/23 documented as of this encounter
--- OUTSIDE RECORDS SUMMARY | 2024-07-04 04:12 | XMS_ITS | Encounter Summary ---
Author Organization [facility] Address [address] [place] [address] Care Team Providers Care Forestry Instructor Name Role Phone Cherelle Corcoran MD Primary Care Pro vider Mark Queen MD Unavailable [phone] Melania Lee RN Unavailable Encounter Details Date Type Department Care Team (Late st Contact Info) Description 08/01/2022 Telephone [facility] Primary Care [address] [facility] [address] [place] [address] Cherelle Corcoran MD [facility] [address] [place] [address] Social History Tobacco Use Types [...] you attend chur ch or voodoo services? Never 09/10/2021 Do you belong to [...] slept in a usp (including now)? No 09/10/2021 Comments No Sex and Gender Information Value Date Recorded Sex Assigned at Not on file Legal Sex Female 9:03 AM SOLUTION ANALYST Gender Identity Female 02/08/2020 6:39 PM CDT Sexual Orientation Not on file documented as of this encounter Miscellaneous Notes * Telephone Encounter - Yoly Elkins LPN - 08/01/2022 8:47 AM CST Received call from [place] with [facility], reports patient is being seen at this time, and patient is very fatigued, and unable to arouse, B/P-132/57, O2- WNL, per daughter BS was 210 this am, daughter has concerns with UTI, per Dr. Corcoran send to ER for evaluation. TION ANALYST documented in this encounter Plan of Treatment Upcoming Encounters Date Type Department Care Team (Latest Contact Info) Description 07/13/2024 9:00 AM SOLUTION ANALYST Hospital Encounter [facility] GI Lab [address] [place] [address] Jaya Grier MD [facility] [address] [place] [address] 07/13/2024 9:00 AM SOLUTION ANALYST - 07/13/2024 9:30 AM SOLUTION ANALYST Surgery [facility] GI Lab [address] [place] [address] Jaya Grier MD [facility] [address] [place] [address] ESOPHAGOGASTRODUODENOSCOPY Scheduled Procedures Name Priority Associated Diagnoses Date/Ti me ESOPHAGOGASTRODUODENOSCOPY Anemia, unspecified type Gastritis without bleeding, unspecified chronicity, unspecified gastritis type 07/13/2024 9:00 AM SOLUTION ANALYST COLONOSCOPY Iron deficiency anemia due to chronic blood loss documented as of this encounter Visit Diagnoses Not on filedocumented in this encounter Care Teams Forestry Instructor Relationship Specialty Start Date End Date Cherelle Corcoran MD PCP - General Family Medicine 08/30/19 Mark Queen MD Consulting Physician Infectious Diseases 01/10/20 Melania Lee RN [address] [place] [address] [address] [place] [address] Information Coordinator 07/22/22 08/21/22 documented as of this encounter
--- OUTSIDE RECORDS SUMMARY | 2024-07-04 04:12 | XMS_ITS | Encounter Summary ---
Author Organization [facility] Address [address] [place] [address] Care Team Providers Care Swimming Coach Name Role Phone Cherelle Corcoran MD Primary Care Pro vider Mark Queen MD Unavailable [phone] Samples, Melania Joel RN Unavailable Anam Costa LCSW Unavailable Unavailabl e Samples, Melania Joel RN Unavailable [phone] Reason for Visit * Reason Onset Date Comments JOY Questions 08/07/2022 Encounter Details Date Type Department Care Team ([facility] Contact Info) Description 08/07/2022 Telephone [facility] Primary Care [address] [facility] [address] [place] [address] Cherelle Corcoran MD [facility] [address] [place] [address] JOY Questions Social History Tobacco [...] often do you attend chur ch or shinto services? More than 4 times per year [...] slept in a prison (including now)? No 08/08/2022 Comments No Sex and Gender Information Value Date Recorded Sex Assigned at Not on file Legal Sex Female 9:03 AM COSMETICS DEMONSTRATOR Gender Identity Female 02/08/2020 6:39 PM CDT Sexual Orientation Not on file documented as of this encounter Miscellaneous Notes * Telephone Encounter - Sandy Mota MA - 08/07/2022 1:37 PM CST Noted. Thanks! ETICS DEMONSTRATOR * Telephone Encounter - Jon Powell - 08/07/2022 11:19 AM CST Medical Question/Miscellaneous Caller???s Concern: patient is being discharged today and will need to have JOY questions completed. Patient scheduled for 08/14/22 Appointment scheduled by [facility], patient unable to answer. Caller???s Call back #: [phone] Does message need to be routed?Yes-FYI Only ETICS DEMONSTRATOR documented in this encounter Plan of Treatment Upcoming Encounters Date Type Department Care Team (Latest Contact Info) Description 07/13/2024 9:00 AM COSMETICS DEMONSTRATOR Hospital Encounter [facility] GI Lab [address] [place] [address] Jaya Grier MD [facility] [facility] [address] [place] [address] 07/13/2024 9:00 AM COSMETICS DEMONSTRATOR - 07/13/2024 9:30 AM COSMETICS DEMONSTRATOR Surgery [facility] GI Lab [address] [place] [address] Jaya Grier MD [facility] [facility] [address] [place] [address] ESOPHAGOGASTRODUODENOSCOPY Scheduled Procedures Name Priority Associated Diagnoses Date/Ti me ESOPHAGOGASTRODUODENOSCOPY Anemia, unspecified type Gastritis without bleeding, unspecified chronicity, unspecified gastritis type 07/13/2024 9:00 AM COSMETICS DEMONSTRATOR COLONOSCOPY Iron deficiency anemia due to chronic blood loss documented as of this encounter Visit Diagnoses Not on filedocumented in this encounter Care Teams Swimming Coach Relationship Specialty Start Date End Date Cherelle Corcoran MD PCP - General Family Medicine 08/30/19 Mark Queen MD Consulting Physician Infectious Diseases 01/10/20 Samples, Melania Joel RN [address] [place] [address] [address] [place] [address] Card Filer 07/22/22 08/21/22 Anam Costa LCSW [address] [place] [address] [address] [place] [address] Curtain Drier 08/08/22 02/18/23 Samples, Melania Joel RN [address] [place] [address] [address] [place] [address] Card Filer 08/22/22 12/07/22 documented as of this encounter
--- OUTSIDE RECORDS SUMMARY | 2024-07-04 04:12 | XMS_ITS | Encounter Summary ---
Author Organization [facility] Address [address] [place] [address] Care Team Providers Care Digital Associate Media Director Name Role Phone Cherelle Corcoran MD Primary Care Pro vider Mark Queen MD Unavailable [phone] Xenia Padilla LPN Unavailable [phone] Reason for Visit * Reason Comments Successful Phone Call [facility] Encounter Details Date Type Department Care Team (Late st Contact Info) Description 06/24/2022 JOY IP Outreach [facility] Accountable Care Organization [address] [place] [address] Xenia Padilla LPN [address] [place] [address] [address] [place] [address] Social History Tobacco Use Types Packs/Day Years [...] you attend chur ch or church services? Never 09/10/2021 Do you belong to [...] slept in a alf (including now)? No 09/10/2021 Comments No Sex and Gender Information Value Date Recorded Sex Assigned at Not on file Legal Sex Female 9:03 AM MIX TECHNICIAN Gender Identity Female 02/08/2020 6:39 PM CDT Sexual Orientation Not on file documented as of this encounter Progress Notes * Joanne Padillajazzmine GastonJonel TRAY PACKER - 06/24/2022 1:45 PM CST Care Web Pressman contacted patients daughter Areli regarding patients recent inpatient discharge at [facility] on 06/19/2022 - 06/22/2022 (3 days) for 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 2 diabetes mellitus. Patient status post-discharge: Q1 - Better Status Details: - Areli reports that patient is doing very well since coming home from the hospital. She reports that patient is not having any newer increased pain. She does report that patient has not had any falls in the past six months and states that patient does use a Walker for ambulation.She also reports that home health care was to be ordered for patient once discharged from the hospital but according to notes dated on June 22 the catering operations manager social research assistant for the hospital was to besending orders for physical therapy and occupational therapy but no further notes have been made inthe chart. Care high school football coach advised Areli that patient would need to be seen by primary care providers o ffice for any referrals to be sent by our office for home health care period she verbally voiced understanding and states that she agreed to make a follow up appointment with primary care provider. Areli states that she will be contacting the hospital as well since they have not yet heard from a home health agency. Discharge Instructions Reviewed - Yes Details: - Areli states that they do have patients discharge instructions from the hospital and states that there is no change in patient's discharge paperwork or medications. Medication Reconciliation Completed: - Yes Details: - Areli states that they do have all of patients maintenance medications and no added medications were given to patient once discharged from the hospital and none of her current medications were changed. Appointment status: - Care Web Pressman scheduled Appointment Date: 07/01/2022, Areli scheduled a follow up appointment for patient for July 01at 3:30 PM with primary care provider and states that she will be transporting patient to this appointment. Areli educated about same day sick appts at PCP office and s/s to report to physician. Areli verbalized understanding of information presented. No additional needs identified at this time. Provided my contact information for future needs. Xenia Padilla LPN, ACO Care Web Pressman [facility] Accountable Care Organization / [facility] Contact E-Mail - [email or web address] or [phone] TECHNICIAN documented in this encounter Plan of Treatment Upcoming Encounters Date Type Department Care Team (Latest Contact Info) Description 07/13/2024 9:00 AM MIX TECHNICIAN Hospital Encounter [facility] GI Lab [address] [place] [address] Jaya Grier MD [address] [place] [address] [address] [place] [address] 07/13/2024 9:00 AM MIX TECHNICIAN - 07/13/2024 9:30 AM MIX TECHNICIAN Surgery [facility] Lab [address] [place] [address] Jaya Grier MD [address] [place] [address] [address] [place] [address] ESOPHAGOGASTRODUODENOSCOPY Scheduled Procedures Name Priority Associated Diagnoses Date/Ti me ESOPHAGOGASTRODUODENOSCOPY Anemia, unspecified type Gastritis without bleeding, unspecified chronicity, unspecified gastritis type 07/13/2024 9:00 AM MIX TECHNICIAN COLONOSCOPY Iron deficiency anemia due to chronic blood loss documented as of this encounter Visit Diagnoses Not on filedocumented in this encounter Care Teams Digital Associate Media Director Relationship Specialty Start Date End Date Cherelle Corcoran MD PCP - General Family Medicine 08/30/19 Mark Queen MD Consulting Physician Infectious Diseases 01/10/20 Xenia Padilla, TRAY PACKER [address] [place], [place] [id number] Wood Grinder 06/24/22 06/24/22 documented as of this encounter
--- OUTSIDE RECORDS SUMMARY | 2024-07-04 04:12 | XMS_ITS | Encounter Summary ---
Author Organization [facility] Home Care Servic es Address [address] [place] [address] Phone Care Team Providers Care Kids Activities Coach Name Role Phone Cherelle Corcoran MD Primary Care Pro vider Mark Queen MD Unavailable [phone]- [phone] Reason for Visit * Auth/Cert Specialty Diagnoses / Procedures Referred By Maryse t Referred To Contact Referral ID Status Reason Start Date Expiration Date Visits Re quested Visits Authorized [id number] 1 1 Encounter Details Date Type Department Care Team (Late st Contact Info) Description 06/05/2022 2:00 PM SAWMILL SUPERVISOR Home Care Visit [facility] Home Health [address] [place] [address] Yamilka Hoang, PT PT REASSESSMENT Social History [...] often do you attend chur ch or yarsani services? Never 09/10/2021 Do you belong to [...] on file Legal Sex Female 9:03 AM SAWMILL SUPERVISOR Gender Identity Female 02/08/2020 6:39 PM CDT Sexual Orientation Not on file documented as of this encounter Last Filed Vital Signs Vital Sign Reading Time Taken Comments Blood Pressure 140/68 06/05/2022 3:06 PM SAWMILL SUPERVISOR Pulse 70 06/05/2022 3:06 PM SAWMILL SUPERVISOR Temperature 35.8 ??C (96.5 ??F) 06/05/2022 3:06 PM CS T Respiratory Rate 18 06/05/2022 3:06 PM SAWMILL SUPERVISOR Oxygen Saturation 98% 06/05/2022 3:06 PM SAWMILL SUPERVISOR Inhaled Oxygen Concentration - - Weight - - Height - - Body Mass Index - - documented in this encounter Miscellaneous Notes * Home Health Visit Narrative - Yamilka Hoang, PT - 06/05/2022 2:56 PM SAWMILL SUPERVISOR Pt accompanied by her granddaughter this visit. Pt and cg deny any falls. Pt denies any pain this date however states she feels 'nervous' about moving into an 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 Due to [place] tree in living room, family had to move the sofa, which now restricts the pathway to the kitchen, so they have instructed pt not to attempt walking into the kitchen. Pt does get up and walk to the bathroom on her own. Pt declines instruction on steps d/t cold temperature. Pt's granddaughter states they do assist pt with the steps, using her walker. Plan to continue 1-2 PT visits with anticipated DC from [facility] next week, pt and cgs are agreeable. NOMNOC signed. ILL SUPERVISOR documented in this encounter Plan of Treatment Upcoming Encounters Date Type Department Care Team (Latest Contact Info) Description 07/13/2024 9:00 AM SAWMILL SUPERVISOR Hospital Encounter [facility] GI [facility] [address] [place] [address] Jaya Grier MD [address] [address] 07/13/2024 9:00 AM SAWMILL SUPERVISOR - 07/13/2024 9:30 AM SAWMILL SUPERVISOR Surgery [facility] GI [facility] [address] [place] [address] Jaya Grier MD [address] [facility] [address] [address] ESOPHAGOGASTRODUODENOSCOPY Scheduled Procedures Name Priority Associated Diagnoses Date/Ti me ESOPHAGOGASTRODUODENOSCOPY Anemia, unspecified type Gastritis without bleeding, unspecified chronicity, unspecified gastritis type 07/13/2024 9:00 AM SAWMILL SUPERVISOR COLONOSCOPY Iron deficiency anemia due to chronic blood loss documented as of this encounter Visit Diagnoses Not on filedocumented in this encounter Home Health Visit - Care Plan Visit Details Visit Type -PT Reassessment Discipline -Physical Therapy Problems Problem Description Start Date Status Goals Interve ntions Homebound Status Disciplines: Skilled Disciplines Patient's homebound status 04/17/2022 Active 1 goal linked to scheduled/documen bruno intervention 1 goal intervention scheduled/documen bruno in this visit Monitor patient's vital signs every home health visit Disciplines: SN, PT, OT, RESEARCH SOIL SCIENTIST, TRIMMER BUFFING WHEEL, Skilled Disciplines Monitor patient's vital signs every home health visit. 04/17/2022 Active 1 goal linked to scheduled/documen bruno intervention 1 goal intervention scheduled/documen bruno in this visit Safety concerns Disciplines: Skilled Disciplines Alteration in safety 04/17/2022 Active 1 goal linked to scheduled/documen bruno intervention 2 goal interventions scheduled/documen bruno in this visit PT Impaired Functional Mobility/Balance Disciplines: Physical Therapy Impaired functional mobility/balance 04/17/2022 Active - 5 problem interventions scheduled/documen bruno in this visit Goals Goal Associated Problem Outcome Goal Met? Visit Notes Patient receives care at the most appropriate care setting Description: Patient receives care at the most appropriate care setting. Homebound Status No Measure vital signs during every home health visit during episode of care Description: Home rehab spec to measure vital signs during every home health visit during episode of care. Monitor patient's vital signs every home health visit No Demonstrate use of safety precautions Description: Patient/caregiver maintains safe home environment as evidenced by remaining free from injury and demonstrates use of safety precautions. Safety concerns No Interventions Intervention Associated Problem/Goal Status Variance Visit Notes Homebound Status Description: Patient is homebound due to: fall risk, dependent on assistive device for ambulation, requires assist to enter/exit home, multiple medical problems Problem:Homebound Status Goal:Patient receives care at the most appropriate care setting Completed Patient is homebound due to: fall risk, dependent on assistive device for ambulation, requires assist to enter/exit home, multiple medical problems Monitor Vital Signs Description: Monitor blood pressure, pulse, oxygen saturation, respirations Problem:Monitor patient's vital signs every home health visit Goal:Measure vital signs during every home health visit during episode of care Completed Instruct Fall Prevention Description: Instruct patient/caregiver in methods to prevent falls Problem:Safety concerns Goal:Demonstrate use of safety precautions Completed Assess safety Description: Assess patient safety Problem:Safety concerns Goal:Demonstrate use of safety precautions Completed Gait/Stair Training Description: Instruct patient/caregiver and perform gait/stair training. Problem:PT Impaired Functional Mobility/Balance Completed Gait in home x 40 ft x 2 using 2WW with mod cueing to improve upright posture by tightening glutes Space in living room limited, large sectional couch had to be moved to accommodate the [employer], so pt has not been amb into the kitchen d/t limited pathway. Pt does demonstrate able to make 180 degree turns in limited space safely using 2WW Pt denies any pain w gait this date Therapeutic Exercise Description: Perform therapeutic exercise, progressing as tolerated. Problem:PT Impaired Functional Mobility/Balance Completed See HEP comments Also instructed pt on standing Heel raises, Hip flex w knee flex x 10 reps ea w B UE support on walker, pt relying on mod offloading through B UE while performing and does req seated rest following Transfer training Description: Instruct patient/caregiver and perform transfer training. Problem:PT Impaired Functional Mobility/Balance Completed Instructed pt on sit <> stand from armchair Pt does scoot fwd to edge of seat but tends to reach for walker handles while seated, req cueing for B hand placement to push up from arm rests, cueing to inc flexion at hips Pt able to perform x 2 reps with SBA with significant effort; then req Min (A) for 3rd rep sit > stand Pt declines bed transfer this visit Pt granddaughter reports she and pt's daughter do assist pt with repositioning in bed Home Exercise Program (HEP) Description: Instruct patient/caregiver and perform HEP. Problem:PT Impaired Functional Mobility/Balance Completed Instructed pt on HEP and performed seated: Heel raises, Toe raises, LAQ, HIp flexion w knee flexion, HIp abd/add w knees flexed Performed x 15 reps ea Pt tolerates well, she does req moderate demo / cueing for correct return. Pt declines any supine therex this visit. Balance Training/Activities Description: Instruct patient/caregiver and perform balance training activities. Problem:PT Impaired Functional Mobility/Balance Completed Instructed pt on standing balance static stance narrow RENETTA Pt able to maintain x 1 min total w intermittent UE support on walker Tactile cueing to improve upright posture and retract shoulders documented in this encounter Care Teams Kids Activities Coach Relationship Specialty Start Date End Date Cherelle Corcoran MD PCP - General Family Medicine 08/30/19 Mark Queen MD Consulting Physician Infectious Diseases 01/10/20 documented as of this encounter
--- OUTSIDE RECORDS SUMMARY | 2024-07-04 04:12 | XMS_ITS | Encounter Summary ---
Author Organization [facility] Home Care Servic es Address [address] [place] [address] Phone Care Team Providers Care Slip Cover Maker Name Role Phone Cherelle Corcoran MD Primary Care Pro vider Mark Queen MD Unavailable [phone]- [phone] Reason for Visit * Auth/Cert Specialty Diagnoses / Procedures Referred By Maryse t Referred To Contact Referral ID Status Reason Start Date Expiration Date Visits Re quested Visits Authorized [id number] 1 1 Encounter Details Date Type Department Care Team (Late st Contact Info) Description 06/11/2022 2:30 PM CORE MAN Home Care Visit [facility] Home Health [address] [place] [address] Yamilka Hoang, PT PT OASIS DISCHARGE Social History Tobacco Use Types [...] you attend chur ch or baptist services? Never 09/10/2021 Do you belong to [...] on file Legal Sex Female 9:03 AM CORE MAN Gender Identity Female 02/08/2020 6:39 PM CDT Sexual Orientation Not on file documented as of this encounter Last Filed Vital Signs Vital Sign Reading Time Taken Comments Blood Pressure 136/60 06/11/2022 2:15 PM CORE MAN Pulse 70 06/11/2022 2:15 PM CORE MAN Temperature 35.9 ??C (96.6 ??F) 06/11/2022 2:15 PM CS T Respiratory Rate 18 06/11/2022 2:15 PM CORE MAN Oxygen Saturation 97% 06/11/2022 2:15 PM CORE MAN Inhaled Oxygen Concentration - - Weight - - Height - - Body Mass Index - - documented in this encounter Miscellaneous Notes * Home Health Visit Narrative - Yamilka Hoang, PT - 06/11/2022 2:04 PM CORE MAN Pt accompanied by her granddaughter this visit. Pt has 24 hr assist from family, they are looking into options for SNF placement and have been provided a list of options by MANAGED CARE SPECIALIST. Pt and cgs deny any falls. Pt able to transfer sit <> stand w/o assist and able to transfer into bed w/o assist using bed rail and small step stool, however does req min (A) for supine > sitting, however pt able to reposition laterally in bed L and R with VC only for technique this date. At this time pt and cgshave no further questions or concerns and are agreeable to DC from [facility]. MAN documented in this encounter Plan of Treatment Upcoming Encounters Date Type Department Care Team (Latest Contact Info) Description 07/13/2024 9:00 AM CORE MAN Hospital Encounter [facility] GI Lab [address] [place] [id number] Jaya Grier MD [address] [place] [id number] 07/13/2024 9:00 AM CORE MAN - 07/13/2024 9:30 AM CORE MAN Surgery [facility] GI Lab [address] [place] [address] Jaya Grier MD [address] [facility] [address] [place] [address] [place] [id number] ESOPHAGOGASTRODUODENOSCOPY Scheduled Procedures Name Priority Associated Diagnoses Date/Ti me ESOPHAGOGASTRODUODENOSCOPY Anemia, unspecified type Gastritis without bleeding, unspecified chronicity, unspecified gastritis type 07/13/2024 9:00 AM CORE MAN COLONOSCOPY Iron deficiency anemia due to chronic blood loss documented as of this encounter Visit Diagnoses Not on filedocumented in this encounter Home Health Visit - Care Plan Visit Details Visit Type -PT OASIS Dischar ge Discipline -Physical Therapy Problems Problem Description Start Date Status Goals Interve ntions Homebound Status Disciplines: Skilled Disciplines Patient's homebound status 04/17/2022 Active 1 goal linked to scheduled/documen bruno intervention 1 goal intervention scheduled/documen bruno in this visit Monitor patient's vital signs every home health visit Disciplines: SN, PT, OT, FOOD SERVICE SPECIALIST, MARKETING LIAISON, Skilled Disciplines Monitor patient's vital signs every home health visit. 04/17/2022 Active 1 goal linked to scheduled/documen bruno intervention 1 goal intervention scheduled/documen bruno in this visit Safety concerns Disciplines: Skilled Disciplines Alteration in safety 04/17/2022 Active 1 goal linked to scheduled/documen bruno intervention 2 goal interventions scheduled/documen bruno in this visit PT Chronic Condition Management Disciplines: Physical Therapy PT Chronic Condition Management 04/17/2022 Active - 2 problem interventions scheduled/documen bruno in this visit PT Impaired Functional Mobility/Balance Disciplines: Physical Therapy Impaired functional mobility/balance 04/17/2022 Active 4 goals linked to scheduled/documen bruno interventions 5 problem interventions scheduled/documen bruno in this visit Goals Goal Associated Problem Outcome Goal Met? Visit Notes Patient receives care at the most appropriate care setting Description: Patient receives care at the most appropriate care setting. Homebound Status No Measure vital signs during every home health visit during episode of care Description: Home gear cutter to measure vital signs during every home health visit during episode of care. Monitor patient's vital signs every home health visit No Demonstrate use of safety precautions Description: Patient/caregiver maintains safe home environment as evidenced by remaining free from injury and demonstrates use of safety precautions. Safety concerns No Improvement with Transfers Description: Patient able to perform sit to stand transfers from a variety of household surfaces using 2WW with SBA Of caregiver by 06/15/22 Patient able to perform bed transfers/ repositioning with Min (A) of caregiver by 06/15/22 PT Impaired Functional Mobility/Balance Completed Yes Improvement in Gait/Stair Training Description: Patient will ambulate 100 feet in home using walker with SBA of caregiver by 06/15/22. Patient will negotiate front steps using walker with Min (A) of caregiver out of home to access transportation/community activities by 06/15/22 PT Impaired Functional Mobility/Balance Completed Yes Improvement with balance Description: Improve balance during ADL's, IADL's, functional mobility as evidenced by no falls with injury by 06/15/22 PT Impaired Functional Mobility/Balance Completed Yes Performance with HEP Description: Patient/caregiver to be independent with progressed HEP by therapy discharge. PT Impaired Functional Mobility/Balance Completed Yes Interventions Intervention Associated Problem/Goal Status [...] concerns Goal:Demonstrate use of safety precautions Completed Diabetes - Foot Care Description: Instruct patient/caregiver in daily foot inspection and proper footwear. Problem:PT Chronic Condition Management Completed Diabetes - Activity/Exercise Description: Instruct patient/caregiver in the effects of activity and exercise on blood sugar to prevent diabetic complications. Problem:PT Chronic Condition Management Completed Gait/Stair Training Description: Instruct patient/caregiver and perform gait/stair training. Problem:PT Impaired Functional Mobility/Balance Completed Gait in home x 55 ft using 2WW with SBA Cueing to improve upright posture and to inc step height Instructed pt and cg down and up 2 half steps down from front door w assist to lower walker, handhold assist / CGA. Pt's granddaughter reports she or her mother always assist pt with negotiating the steps Therapeutic Exercise Description: Perform therapeutic exercise, progressing as tolerated. Problem:PT Impaired Functional Mobility/Balance Completed See HEP comments Transfer training Description: Instruct patient/caregiver and perform transfer training. Problem:PT Impaired Functional Mobility/Balance Completed Sit to/from stand from armchair with mod assist B UE pushing up from arm rests with (I) Pt able to perform w less exertion compared to last visit Pt transfers into bed by stepping up onto step stool laterally leading w L LE w L UE support pulling on bedrail and RUE support on bed surface then flexes R hip and knee to crawl fwd onto bed surface the rolls to supine. Instructed pt on 'bridge' technique to reposition laterally in bed, pt demonstrates good return w VC only Pt does req Min (A) for supine > sitting w R UE assist pulling on bed rail. Pt family assists pt with transfer out of bed in the morning Home Exercise Program (HEP) Description: Instruct patient/caregiver and perform HEP. Problem:PT Impaired Functional Mobility/Balance Completed PT reviewed HEP w pt and granddaughter and pt performs supine: Ankle pumps, Quad set, Heel slide, Hip abd/add, SAQ x 12-15 reps ea B LE Pt does req moderate cueing for correct return Pt and cgs have been provided written instructions for HEP Pt's granddaughter agreeable to assist pt w performing HEP daily Balance Training/Activities Description: Instruct patient/caregiver and perform balance training activities. Problem:PT Impaired Functional Mobility/Balance Completed documented in this encounter Care Teams Slip Cover Maker Relationship Specialty Start Date End Date Cherelle Corcoran MD PCP - General Family Medicine 08/30/19 Mark Queen MD Consulting Physician Infectious Diseases 01/10/20 documented as of this encounter
--- OUTSIDE RECORDS SUMMARY | 2024-07-04 04:12 | XMS_ITS | Encounter Summary ---
Author Organization [facility] Address [address] [place] [address] Care Team Providers Care Vp Clinical Name Role Phone Cherelle Corcoran MD Primary Care Pro vider Mark Queen MD Unavailable [phone] Reason for Visit * Reason Comments Extremity Weakness Pt daughter stated p t was so weak the other day she couldn't even lift her leg to get into the car Chills X3 days Cough Fatigue Encounter Details Date Type Department Care Team ([facility] st Contact Info) Description 06/19/2022 10:45 AM HAT BODY INSPECTOR Office Visit [facility] Primary Care [address] [facility] [address] [place] [address] Cherelle Corcoran MD [address] [place] [address] [address] [place] [address] Weakness (Primary Dx) Social History Tobacco Use Types [...] you attend chur ch or episcopalian services? Never 09/10/2021 Do you belong to [...] on file Legal Sex Female 9:03 AM HAT BODY INSPECTOR Gender Identity Female 02/08/2020 6:39 PM CDT Sexual Orientation Not on file documented as of this encounter Last Filed Vital Signs Vital Sign Reading Time Taken Comments Blood Pressure 120/70 06/19/2022 9:47 AM HAT BODY INSPECTOR Pulse 68 06/19/2022 9:47 AM HAT BODY INSPECTOR Temperature 36.7 ??C (98 ??F) 06/19/2022 9:47 AM HAT BODY INSPECTOR Respiratory Rate 18 06/19/2022 9:47 AM HAT BODY INSPECTOR Oxygen Saturation 97% 06/19/2022 9:47 AM HAT BODY INSPECTOR Inhaled Oxygen Concentration - - Weight - - Height - - Body Mass Index - - documented in this encounter Progress Notes * Cherelle Corcoran MD - 06/19/2022 10:45 AM CST Images from the original note were not included. Assessment/Plan: Assessment/Plan Diagnoses and all orders for this visit: Weakness (Primary) Comments: POC UA: leuks, blood, protein & glucose, similar to previous which didn't grow any bacteria Appears dehydrated on exam, has a hx of this. High risk given age/schizophrenia and diabetes mellitus/ckd Advise ED, daughter in agreement with plan Orders: - POCT glucose - POCT urinalysis dipstick - Urine culture Urine, clean voided; Future Subjective: Barbara Chakraborty is a 71 y.o. female here for weakness Extremity Weakness Associated symptoms include coughing, fatigue and weakness. Pertinent negatives include no fever. Cough Pertinent negatives include no fever. Fatigue Associated symptoms include coughing, fatigue and weakness. Pertinent negatives include no fever. Chief Complaint Patient presents with Extremity Weakness Pt daughter stated pt was so weak the other day she couldn't even lift her leg to get into the car Chills X3 days Cough Fatigue Advised ED by endocrine 2d ago if symptoms persisted, but presented here instead Urinating more frequently, history of UTI Has been hospitalized multiple times for uti, pneumonia and generalized weakness Review of Systems Constitutional: Positive for fatigue. Negative for fever. Respiratory: Positive for cough. Musculoskeletal: Positive for extremity weakness. Neurological: Positive for weakness. Objective: Vital signs were reviewed. Vitals: 06/19/22 0947 BP: 120/70 BP Location: Left arm Patient Position: Sitting Pulse: 68 Resp: 18 Temp: 36.7 ??C (98 ??F) TempSrc: Temporal SpO2: 97% Physical Exam Gen: NAD, comfortable, appears as stated age Eyes: no conjunctival injection, EOMI ENMT: external ears symmetric, dry mucous membranes CV: Regular rate and rhythm, no murmurs, rubs or gallops, decreased cap refill Pulm: no increased work of breathing, clear to asculation bilaterally, no wheezing, rhonchi or rales, no egophony Skin: no rashes or nodules, warm and dry MSK/Neuro: symmetric limb movement, using wheelchair for ambulation Psych: alert and oriented to person Cherelle Corcoran MD BODY INSPECTOR documented in this encounter Plan of Treatment Upcoming Encounters Date Type Department Care Team (Latest Contact Info) Description 07/13/2024 9:00 AM HAT BODY INSPECTOR Hospital Encounter [facility] [address] [place] [id number] Jaya Grier MD [facility] [address] [place] [id number] 07/13/2024 9:00 AM HAT BODY INSPECTOR - 07/13/2024 9:30 AM HAT BODY INSPECTOR Surgery [facility] [address] [place] [id number] Jaya Grier MD [facility] [address] [place] [id number] ESOPHAGOGASTRODUODENOSCOPY Scheduled Procedures Name Priority Associated Diagnoses Date/Ti me ESOPHAGOGASTRODUODENOSCOPY Anemia, unspecified type Gastritis without bleeding, unspecified chronicity, unspecified gastritis type 07/13/2024 9:00 AM HAT BODY INSPECTOR COLONOSCOPY Iron deficiency anemia due to chronic blood loss documented as of this encounter Procedures Procedure Name Priority Date/Time Associated Diagnosis Comments POCT URINALYSIS DIPSTICK Routine 06/19/2022 10:25 AM HAT BODY INSPECTOR Weakness POCT GLUCOSE Routine 06/19/2022 10:05 AM HAT BODY INSPECTOR Weakness documented in this encounter Results * Urine culture Urine, clean voided (06/19/2022 10:30 AM HAT BODY INSPECTOR) Report Final Report: Less than 100,000 colonies/mL (clinically insignificant growth based on current clinical standards) NILSA RODRIGES Comment:Testing performed by : [facility], [address] [place]., [address] Organism (CLINICALLY INSIGNIFICANT GROWTH NILSA Urine, clean voided 06/19/2022 10:30 AM HAT BODY INSPECTOR 06/19/2022 6:56 PM HAT BODY INSPECTOR Narrative NILSA RODRIGES - 06/21/2022 7:49 AM HAT BODY INSPECTOR Testing performed by [facility] Microbiology Laboratory ([phone]) Cherelle Corcoran MD LAB MICROBIOLOGY - GENERAL ORDERABLES Final Result NILSA [address] [facility] [place] [address] * (ABNORMAL) POCT urinalysis dipstick (06/19/2022 10:25 AM HAT BODY INSPECTOR) Color, Urine, POC Light Yellow Clarity, ur, POC Cloudy(A) Clear Glucose, ur, POC 100.(A) Negative MG/DL Bilirubin, ur, POC Negative Negative, Small, Moderate, Large Ketones, ur, POC Negative Negative Specific [place], POC 1.020 1.005 - 1.030 Blood, ur, POC Small(A) Negative pH, ur, POC 5.5 5.0 - 8.0 Protein, ur, POC 300.(A) Negative Urobilinogen, urine, POC 0.2 0.2 - 1.0 mg/dL Nitrite, ur, POC Negative Negative Leukocytes, ur, POC Moderate(A) Negative Lot Number 0 Urine 06/19/2022 10:2 5 AM HAT BODY INSPECTOR us Cherelle Corcoran MD POINT OF CARE GOMEZ T ORDERABLES Final Result * POCT glucose (06/19/2022 10:05 AM HAT BODY INSPECTOR) Glucose Blood, POC 235 mg/dL Blood 06/19/2022 10:0 5 AM HAT BODY INSPECTOR Cherelle Corcoran MD POINT OF CARE GOMEZ T ORDERABLES Final Result documented in this encounter Visit Diagnoses Diagnosis Weakness- Primary Other malaise and fatigue Weakness Other malaise and fatigue Anemia, unspecified type Gastritis without bleeding, unspecified chronicity, unspecified gastritis type documented in this encounter Care Teams Vp Clinical Relationship Specialty Start Date End Date Cherelle Corcoran MD PCP - General Family Medicine 08/30/19 Mark Queen MD Consulting Physician Infectious Diseases 01/10/20 documented as of this encounter
--- OUTSIDE RECORDS SUMMARY | 2024-07-04 04:12 | XMS_ITS | Encounter Summary ---
Author Organization [facility] Address [address] [place] [address] Care Team Providers Care Solid Fiber Paster Operator Name Role Phone Cherelle Corcoran MD Primary Care Pro vider Mark Queen MD Unavailable [phone] Reason for Referral * Diagnostic Imaging (Routine) - Closed Specialty Diagnoses / Procedures Referred By Maryse lama Referred To Contact Diagnoses Encounter for screening mammogram for malignant neoplasm of breast Procedures Screening Mammogram Bilateral W Cherelle Rodríguez MD Phone: tel: fax: [address] [address] Referral ID Status Reason Start Date Expiration Date Visits Re quested Visits Authorized [id number] Closed 06/09/2022 07/09/2023 1 1 DRIVER/MONITOR Reason for Visit * Reason Comments Medicare Wellness Encounter Details Date Type Department Care Team ([facility] st Contact Info) Description 06/09/2022 4:00 PM BUS DRIVER/MONITOR Office Visit [facility] Primary Care [facility] [address] [place] [address] Cherelle Corcoran MD [address] [place] [id number] Encounter for Medicare annual wellness exam (Primary Dx); Encounter for screening mammogram for malignant neoplasm of breast; Type 2 diabetes mellitus with diabetic neuropathy, with long-term current use of insulin (CMS/HCC) (HCC); Other diabetic neurological complication associated with type 2 diabetes mellitus (HCC); Hypertension associated with diabetes (HCC); Hyperlipidemia associated with type 2 diabetes mellitus (HCC); 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 2 diabetes mellitus (CMS/HCC) (HCC); Left leg DVT (CMS/HCC) (HCC); Late onset Alzheimer's dementia without behavioral disturbance (HCC) Social History Tobacco Use Types Packs/Day [...] in a senior care (including now)? No 09/10/2021 Comments No Sex and Gender Information Value Date Recorded Sex Assigned at Not on file Legal Sex Female 9:03 AM BUS DRIVER/MONITOR Gender Identity Female 02/08/2020 6:39 PM CDT Sexual Orientation Not on file documented as of this encounter Last Filed Vital Signs Vital Sign Reading Time Taken Comments Blood Pressure 134/68 06/09/2022 2:58 PM BUS DRIVER/MONITOR Pulse 67 06/09/2022 2:58 PM BUS DRIVER/MONITOR Temperature 36.6 ??C (97.9 ??F) 06/09/2022 2:58 PM CS T Respiratory Rate 18 06/09/2022 2:58 PM BUS DRIVER/MONITOR Oxygen Saturation 98% 06/09/2022 2:58 PM BUS DRIVER/MONITOR Inhaled Oxygen Concentration - - Weight - - Height - - Body Mass Index - - documented in this encounter Patient Instructions * Attachments The following attachments cannot be sent through Care Everywhere. * Hypoglycemia in a Person with Diabetes (Lens Grinder) (German) documented in this encounter Progress Notes * Cherelle Corcoran MD - 06/09/2022 4:00 PM CST Images from the original note were not included. MEDICARE SUBSEQUENT ANNUAL WELLNESS VISIT Patient ID: Barbara Chakraborty is a 71 y.o. female. Visit date: 06/09/2022 Medicare Health Risk Assessment Basic Information In general, would you say your health is: Good Do you have an advance directive, such as a living will or durable power of managing attorney?: No Would you like information regarding Advanced Directiv (Living Will) and/or Durable Power of Reliability Manager?: No Do you have to strain or struggle to hear/understand conversations?: No Have you experienced any of the following problems currently or recently? Eating: Yes Grooming: No Bathing: No Walking: Yes Using the toilet: No Memory problems: Yes Difficulty speaking: No Pain: Yes Sexual Health: No Fatigue: Yes Have you experienced any of the following problems currently or recently? Laundry and/or housekeeping: Yes Handling Money: Yes Shopping: Yes Food preparation: Yes Transportation: No (pt does not drive) Taking and/or getting your own medications: No Do you use prescription drugs that are not prescribed for you?: No Depression Screen: PHQ Screening Over the last 2 weeks, [...] points, staff should administer the PHQ-9): 0 Audio/Visual screen: Not indicated Is the patient having any problems with hearing and/or vision? No STEADI Fall Risk Screening: In the past year, patient experienced: One or more falls in the last year: (!) Yes How many times?: 2 or more Was the patient injured in the fall?: No Up and Go Test: Patient was unsteady or time test was longer than 30 seconds? Yes Chief complaint: Medicare Wellness HPI: Awv: flu & pcv UTD. dexa UTD, daughter desires to continue mammograms. Hepatitis c previously negative bilateral lower back pain. Using lidocaine patches, one on each side, which helps some. Previously had ct lumbar spine in jul. Not interested in injections dm: follows with endo on 34 units lantus, 12 units humalog with meals +SS & trulicity 1.5mg, previously on jardiance. Blood sugar in 100's, did have 1 episode of hypoglycemia in AM. [facility] [place]. neuropathy: on lyrica 150mg +ALA & b complex htn: on coreg 3.125mg bid & started on valsartan 40mg by nephrology hld: on 20mg atorvastatin & 81mg ASA CKD: follows with nephro, on lasix 40mg bid L leg DVT: on eliquis 5mg bid schizoaffective bipolar type: follows with psych on risperidal pulmonary nodule: needs repeat CT November 2022 Pressure sore on foot: seeing podiatry Problem List, Past Medical and Surgical History: Patient Active Problem List Diagnosis Schizoaffective disorder, bipolar type ([facility]) ([facility]) Diabetic neuropathy ([facility]) Type 2 diabetes mellitus with diabetic neuropathy, with long-term current use of insulin ([facility]) (HCC) Hypertension associated with diabetes (HCC) Amputation of toe of right foot ([facility]) ([facility]) Iron deficiency anemia GERD (gastroesophageal reflux disease) Hyperlipidemia associated with type 2 diabetes mellitus (HCC) Dementia ([facility]) Encounter for psychiatric assessment Schizoaffective disorder, bipolar type ([facility]/HCC) (HCC) 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 2 diabetes mellitus ([facility]/HCC) ([facility]) Encounter for Medicare annual wellness exam Delirium Late onset Alzheimer's dementia without behavioral disturbance ([facility]) Volume overload Anemia Pressure ulcer Physical deconditioning Left leg DVT ([facility]/HCC) ([facility]) Pulmonary nodule Past Medical History: Diagnosis Date Arthritis Depression [...] Frequency of Binge Drinking: Not on file Allergies: No Known Allergies Medications: Current Outpatient Medications: acetaminophen (TYLENOL) 325 mg tablet, Take 650 mg by mouth every 6 (six) hours as needed for pain,Disp: , Rfl: albuterol HFA (ProAir HFA) 90 mcg/actuation inhaler, Inhale 2 puffs every 4 (four) hours as needed for wheezing or shortness of breath, Disp: 8.5 g, Rfl: 0 apixaban (ELIQUIS) 5 mg tablet, Take 1 tablet (5 mg total) by mouth every 12 (twelve) hours, Disp: 180 tablet, Rfl: 0 atorvastatin (LIPITOR) 20 mg tablet, Take 1 tablet (20 mg total) by mouth daily, Disp: 90 tablet, Rfl: 3 BD Arlyn 2nd Gen Pen Needle 32 gauge x 5/32 needle, USE TO INJECT BASAGLAR EVERY NIGHT AT BEDTIME, Disp: , Rfl: benztropine (COGENTIN) 1 mg tablet, Take 1 tablet (1 mg total) by mouth nightly, Disp: 30 tablet, Rfl: 11 blood pressure monitor kit, Check BP as instructed, Disp: 1 kit, Rfl: 0 capsaicin (ZOSTRIX) 0.025 % cream, Apply topically 2 (two) times a day, Disp: 60 g, Rfl: carvediloL (COREG) 3.125 mg tablet, Take 1 tablet (3.125 mg total) by mouth 2 (two) times a day with meals, Disp: 180 tablet, Rfl: 1 conner.stocking,thigh,reg,med misc, Wear as much as possible, Disp: 2 each, Rfl: 1 dulaglutide (TRULICITY) 1.5 mg/0.5 mL pen injector, Inject 0.5 mL (1.5 mg total) under the skin every 7 days, Disp: 2 mL, Rfl: 1 famotidine (PEPCID) 10 mg tablet, Take 1 tablet (10 mg total) by mouth nightly, Disp: 90 tablet, Rfl: 0 ferrous sulfate 325 mg (65 mg of elemental iron) tablet, Take 1 tablet (325 mg total) by mouth daily with breakfast, Disp: 90 tablet, Rfl: 1 flash glucose scanning reader (FreeStyle Madhav 2 [place]) [facility], Use to continually monitor glucose, Disp: 1 [...] mouth 2 (two) times a day rx# [id number]), Disp: 60 tablet, Rfl: 11 insulin glargine 100 unit/mL (3 mL) pen for injection, Inject 34 Units under the skin nightly, Disp: 45 mL, Rfl: 4 insulin lispro (HumaLOG, ADMELOG) 100 unit/mL pen for injection, Inject 12 Units under the skin 3 (three) times a day with meals, Disp: 33 mL, Rfl: 1 ketoconazole (NIZORAL) 2 % cream, Apply topically 2 (two) times a day, Disp: 30 g, Rfl: 0 lancets misc, Check blood sugar up to 3 times a day, Disp: 100 each, Rfl: 3 lidocaine (LIDODERM) 5 %, Place 1 patch on the skin daily. apply on patch to the painful area once every day and leave on for 12 hours then off for 12 hours. Rx# [id number] in home 05/02/22 per Hanny Cruz PTA entered by Tamela Swanson RN 05/04/22 Indications: pain, Disp: , Rfl: miscellaneous medical supply (Blood Pressure Cuff) [facility], Use to check blood pressure daily, Disp: 1each, Rfl: 1 multivitamin with minerals tablet, Take 1 tablet by mouth daily, Disp: , Rfl: OneTouch Verio test strips strip, TEST 3 TO 4 TIMES DAILY, Disp: 400 each, Rfl: 1 polyethylene glycol (MIRALAX) 17 gram packet, Take 1 packet (17 g total) by mouth daily, Disp: , Rfl: pregabalin (LYRICA) 150 mg capsule, Take 1 capsule (150 mg total) by mouth nightly, Disp: 30 capsule, Rfl: 2 risperiDONE (RisperDAL) 2 mg tablet, Take 1 tablet (2 mg total) by mouth nightly, Disp: 30 tablet, Rfl: 11 syringe with needle, insulin (INSULIN SYRINGE-NEEDLE U-100 MISC), 3 times a day, Disp: , Rfl: valsartan (DIOVAN) 40 mg tablet, Take 1 tablet (40 mg total) by mouth daily, Disp: 90 tablet, Rfl: 3 Review of Systems: Review of Systems Constitutional: Negative for fever. HENT: Negative for sore throat. Respiratory: Negative for cough and shortness of breath. Gastrointestinal: Negative for diarrhea and vomiting. Musculoskeletal: Negative for myalgias. Recent Results (from the past 1008 hour(s)) POCT glucose Collection Time: 05/08/22 2:09 PM Result Value Ref Range Glucose, POC 131 70 - 199 mg/dL Influenza A/B, RSV, and COVID-19 PCR Nasopharyngeal Collection Time: 05/08/22 2:49 PM Specimen: Nasopharyngeal Result Value Ref Range COVID-19 RNA Negative Negative Influenza A RNA Negative Negative Influenza B RNA Negative Negative RSV RNA Negative Negative CBC with auto differential Collection Time: 05/08/22 2:49 PM Result Value Ref Range WBC 10.7 (H) 3.8 - 9.9 K/cumm Hgb 9.1 (L) 11.9 - 15.5 g/dL Hct 29.2 (L) 35.6 - 45.5 % Plt 330 150 - 400 K/cumm MPV 10.8 9.1 - 12.3 fL RBC 3.07 (L) 3.90 - 5.20 M/cumm MCV 95.1 81.3 - 96.4 fL MCH 29.6 27.1 - 33.3 pg MCHC 31.2 (L) 32.3 - 35.7 g/dL RDW CV 15.6 (H) 11.1 - 14.9 % RDW SD 53.6 (H) 35.7 - 48.1 fL NRBC abs 0.00 0.00 - 0.01 K/cumm Comprehensive metabolic panel Collection Time: 05/08/22 2:49 PM Result Value Ref Range Sodium 144 135 - 145 mmol/L Potassium, pl 4.3 3.3 - 4.9 mmol/L Chloride 106 97 - 110 mmol/L CO2 28 22 - 32 mmol/L Anion gap 10 2 - 15 mmol/L BUN 48 (H) 8 - 25 mg/dL Creatinine 2.44 (H) 0.60 - 1.10 mg/dL Glucose 120 70 - 199 mg/dL Calcium 10.0 8.5 - 10.3 mg/dL Bilirubin, total 0.2 0.1 - 1.2 mg/dL Protein, pl 7.5 6.5 - 8.5 g/dL Albumin 3.6 3.5 - 5.0 g/dL Alk phos 129 40 - 130 Units/L ALT 26 7 - 45 Units/L AST 23 10 - 45 Units/L Differential, auto Collection Time: 05/08/22 2:49 PM Result Value Ref Range Neutrophil abs 6.8 (H) 1.7 - 6.5 K/cumm Imm gran abs 0.0 0.0 - 0.1 K/cumm Lymphocyte abs 2.9 0.8 - 3.3 K/cumm Monocyte abs 0.7 0.2 - 0.8 K/cumm Eosinophil abs 0.2 0.0 - 0.5 K/cumm Basophil abs 0.0 0.0 - 0.1 K/cumm Neutrophil pct 64.1 % Imm gran pct 0.4 % Lymphocyte pct 27.1 % Monocyte pct 6.3 % Eosinophil pct 1.8 % Basophil pct 0.3 % eGFR Collection Time: 05/08/22 2:49 PM Result Value Ref Range eGFR 21 (L) 90 - 130 mL/min/1.73 m2 POCT glucose Collection Time: 05/08/22 11:21 PM Result Value Ref Range Glucose, POC 236 (H) 70 - 199 mg/dL Urinalysis reflex to microscopic and culture Urine Collection Time: 05/09/22 12:24 AM Specimen: Urine Result Value Ref Range Color, ur Straw Yellow Clarity, ur Clear Clear Specific gravity, ur 1.013 1.003 - 1.030 pH, urine 6.0 Protein, ur ql 2+ (A) Negative Glucose, ur ql 1+ (A) Negative Ketones, ur Negative Negative Bilirubin, ur Negative Negative Blood, ur Trace (A) Negative Urobilinogen, ur <2.0 <2.0 mg/dL Nitrite, ur Negative Negative Leukocyte esterase, ur 2+ (A) Negative UA reflex comment Reflex to microscopic UA will be performed. Urinalysis, microscopic only Collection Time: 05/09/22 12:24 AM Result Value Ref Range WBC, ur >50 (A) 0 - 5 /HPF RBC, ur 3-5 (A) 0 - 2 /HPF Epithelial cells, squamous, ur 1-5 0 - 5 /HPF Bacteria, ur Trace (A) Mucous, ur Present (A) Culture Reflex Comment Reflex to urine culture will be performed. Urine culture Urine Collection Time: 05/09/22 12:24 AM Specimen: Urine Result Value Ref Range Report Final Report: No growth Basic metabolic panel Collection Time: 05/13/22 2:45 PM Result Value Ref Range Sodium 143 135 - 145 mmol/L Potassium, pl 4.2 3.3 - 4.9 mmol/L Chloride 102 97 - 110 mmol/L CO2 29 22 - 32 mmol/L Anion gap 12 2 - 15 mmol/L BUN 39 (H) 8 - 25 mg/dL Creatinine 1.90 (H) 0.60 - 1.10 mg/dL Glucose 150 70 - 199 mg/dL Calcium 10.0 8.5 - 10.3 mg/dL eGFR Collection Time: 05/13/22 2:45 PM Result Value Ref Range eGFR 28 mL/min/1.73 m2 POCT hemoglobin A1c Collection Time: 06/09/22 3:55 PM Result Value Ref Range Hemoglobin A1C, POC 8.0 Vitals: Vitals BP 134/68 (BP Location: Left arm, Patient Position: Sitting) Pulse 67 Temp 36.6 ??C (97.9 ??F) (Temporal) Resp 18 SpO2 98% There is no height or weight on file to calculate BMI. Exam: Physical Exam Gen: NAD, comfortable, appears as stated age Eyes: no conjunctival injection, EOMI ENMT: external ears symmetric CV: RRR without murmur, rub, gallop. Pulm: good respiratory effort, CTAB no rhonchi, rales, or wheezes Abd: soft, non-tender, non-distended, bowel sounds present Skin: no rashes or nodules, warm and dry MSK/Neuro: symmetric limb movement Psych: alert and oriented to person Care Team Providers: Patient Care Team: Cherelle Corcoran MD as PCP - General (Family Medicine) Mark Queen MD as Consulting Physician (Infectious Diseases) Primary Pharmacy/DME suppliers: [id number] - [place], [place] - [address] SEC [address] [place] [address] [facility] [address] [facility] [address] [facility] [place], [place] - [address] [address] [address] [address] [facility] - [place], [place] - [address] [facility] [address] [facility] [place] [address] [facility] [place], [place] - [address] [facility] [address] [facility] [address] Detection of Cognitive Impairment: The patient does have cognitive impairment based on direct observation, discussion with patient or family, or review of medical records. Health Maintenance: Health Maintenance Topics with due status: Overdue Topic Date Due DTaP/Tdap/Td Vaccine Never done Zoster Vaccines Never done Foot Exam 04/02/2021 Covid-19 Vaccine 08/06/2021 Breast Cancer Screening-Mammogram 01/08/2022 Colon Cancer Screening-Colonoscopy 04/01/2022 Dilated Eye Exam 05/24/2022 Health Maintenance Topics with due status: Not Due Topic Last Completion Date Osteoporosis Screening-Bone Density Scan 01/08/2021 Lipid Panel 09/10/2021 Urine Microalbumin 09/14/2021 Fall Risk Assessment 06/09/2022 Depression Screening-PHQ 06/09/2022 Well Visit 65+ 06/09/2022 Hemoglobin A1C 06/09/2022 Health Maintenance Topics with due status: Completed Topic Last Completion Date Pneumococcal vaccine 65+ 01/20/2019 Hepatitis C Screening 05/28/2020 Influenza Vaccine 04/01/2022 Health Maintenance Topics with due status: Discontinued Topic Date Due Colon Cancer Screening-DNA Stool Discontinued Colon Cancer Screening-CT Colonography Discontinued Colon Cancer Screening-FIT Discontinued Colon Cancer Screening-Sigmoidoscopy Discontinued Colon Cancer Screening-FOBT Discontinued Counseling and Referral of Preventative Services: Lifestyle Recommendations Increase Physical Activity and Improve Diet Advanced Directive Durable Power of AttorneyNo Living Will No Assessment and Plan: Diagnoses and all orders [...] as needed Encounter for screening mammogram for malignant neoplasm of breast - Screening Mammogram Bilateral W Stalin; Future Type 2 diabetes mellitus with diabetic neuropathy, with long-term current use of insulin ([facility]) ([facility]) Assessment & Plan: Following with endocrine Home blood sugar at goal Continue 34 units lantus, 12 units humalog TIDAC & 1.5mg trulicity Hypoglycemia precautions discussed Orders: - POCT hemoglobin A1c Other diabetic neurological complication associated with type 2 diabetes mellitus ([facility]) Assessment & Plan: Continue lyrica 150mg nightly Hypertension associated with diabetes ([facility]) Assessment & Plan: Blood pressure at goal, continue coreg 3.125mg twice a day & valsartan 40mg Hyperlipidemia associated with type 2 diabetes mellitus ([facility]) Assessment & Plan: Continue statin & 81mg ASA 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 2 diabetes mellitus ([facility]) ([facility]) Assessment & Plan: Follows with nephrology Left leg DVT ([facility]) ([facility]) Assessment & Plan: Continue eliquis Late onset Alzheimer's dementia without behavioral disturbance ([facility]) Assessment & Plan: Needs to reschedule with neurology [place] [facility], but declined for [facility] for schizoaffective disorder Patient here for annual Medicare wellness visit and for review of complete medical problem list. All the elements of the plan were completed as outlined by [facility]. A copy of the prevention plan was given to the patient. I reviewed Medicare Wellness Questionnaire (other physicians involved in care, depression screen, advanced directives), cognitive/memory, and functional assessment. Forms scanned in progress notes. I reviewed and updated the complete problem list, medication list, family history, and immunization records with the patient. I provided preventive counseling and early detection interventions to the patient through health maintenance update and summary of today's office visit. Cherelle Corcoran MD DRIVER/MONITOR documented in this encounter Miscellaneous Notes * Assessment & Plan Note - Cherelle Corcoran MD - 06/09/2022 3:37 PM CSTAssociated Problem(s): Encounter for Medicare annual wellness exam Reviewed [facility] & PHQ Screening PHQ-2 Total Score (If total score is 3 or more points, staff should administer the PHQ-9): 0 Hearing/vision screening reviewed, referrals placed as needed Fall risk reviewed Reviewed medications and supplements Specialists: endocrine, nephrology, cardiology, neurology evidence of cognitive impairment HCM: orders placed as needed DRIVER/MONITOR * Assessment & Plan Note - Cherelle Corcoran MD - 06/09/2022 3:36 PM CSTAssociated Problem(s): Late onset Alzheimer's dementia without behavioral disturbance (HCC) Needs to reschedule with neurology [place] [facility] [place], but declined for [facility] for schizoaffective disorder DRIVER/MONITOR * Assessment & Plan Note - Cherelle Corcoran MD - 06/09/2022 3:36 PM CSTAssociated Problem(s): Left leg DVT (HCC) (Resolved 11/10/2023) Continue eliquis DRIVER/MONITOR * Assessment & Plan Note - Cherelle Corcoran MD - 06/09/2022 3:33 PM CSTAssociated Problem(s): 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 2 diabetes mellitus (CMS/HCC) (HCC) (Deleted) Follows with nephrology DRIVER/MONITOR * Assessment & Plan Note - Cherelle Corcoran MD - 06/09/2022 3:33 PM CSTAssociated Problem(s): Mixed hyperlipidemia Continue statin & 81mg ASA DRIVER/MONITOR DRIVER/MONITOR * Assessment & Plan Note - Cherelle Corcoran MD - 06/09/2022 3:32 PM CSTAssociated Problem(s): Primary hypertension Blood pressure at goal, continue coreg 3.125mg twice a day & valsartan 40mg DRIVER/MONITOR * Assessment & Plan Note - Cherelle Corcoran MD - 06/09/2022 3:32 PM CSTAssociated Problem(s): Diabetic neuropathy (HCC) (Resolved 05/16/2024) Continue lyrica 150mg nightly DRIVER/MONITOR * Assessment & Plan Note - Cherelle Corcoran MD - 06/09/2022 3:30 PM CSTAssociated Problem(s): Type 2 diabetes mellitus with diabetic neuropathy, with long-term current use of insulin (HCC) Following with endocrine Home blood sugar at goal Continue 34 units lantus, 12 units humalog TIDAC & 1.5mg trulicity Hypoglycemia precautions discussed DRIVER/MONITOR documented in this encounter Plan of Treatment Upcoming Encounters Date Type Department Care Team (Latest Contact Info) Description 07/13/2024 9:00 AM BUS DRIVER/MONITOR Hospital Encounter [facility] [address] [place] [id number] Jaya Grier MD [address] [place] [phone] 07/13/2024 9:00 AM BUS DRIVER/MONITOR - 07/13/2024 9:30 AM BUS DRIVER/MONITOR Surgery [facility] [address] [place] [address] Jaya Grier MD [address] [place] [address] [place] [id number] ESOPHAGOGASTRODUODENOSCOPY Scheduled Procedures Name Priority Associated Diagnoses Date/Ti me ESOPHAGOGASTRODUODENOSCOPY Anemia, unspecified type Gastritis without bleeding, unspecified chronicity, unspecified gastritis type 07/13/2024 9:00 AM BUS DRIVER/MONITOR COLONOSCOPY Iron deficiency anemia due to chronic blood loss documented as of this encounter Procedures Procedure Name Priority Date/Time Associated Diagnosis Comments POCT HEMOGLOBIN A1C Routine 06/09/2022 3 :55 PM BUS DRIVER/MONITOR Type 2 diabetes mellitus with diabetic neuropathy, with long-term current use of insulin ([facility]) ([facility]) documented in this encounter Results * Screening [...] age 40, based on guidelines of the [employer] (ACR Practice Parameter for the Performance of Screening and Diagnostic Mammography) and [employer]. For [...] IMG MAMMO PROCEDU RES Final Result * POCT hemoglobin A1c (06/09/2022 3:55 PM BUS DRIVER/MONITOR) Hemoglobin A1C, POC 8.0 Blood 06/09/2022 3:55 PM BUS DRIVER/MONITOR Cherelle Corcoran MD POINT OF CARE GOMEZ T ORDERABLES Final Result documented in this encounter Visit Diagnoses Diagnosis Encounter for Medicare annual wellness exam- Primary Encounter for screening mammogram for malignant neoplasm of breast Type 2 diabetes mellitus with diabetic neuropathy, [...] onset Alzheimer's dementia without behavioral disturbance (HCC) Encounter for screening mammogram for malignant neoplasm of breast Anemia, unspecified type Gastritis without bleeding, unspecified chronicity, unspecified gastritis type documented in this encounter Care Teams Solid Fiber Paster Operator Relationship Specialty Start Date End Date Cherelle Corcoran MD PCP - General Family Medicine 08/30/19 Mark Queen MD Consulting Physician Infectious Diseases 01/10/20 documented as of this encounter
--- OUTSIDE RECORDS SUMMARY | 2024-07-04 04:12 | XMS_ITS | Encounter Summary ---
Author Organization [facility] Address [address] [place] [address] Care Team Providers Care Templer Head Name Role Phone Cherelle Corcoran MD Primary Care Pro vider Mark Queen MD Unavailable [phone] Reason for Referral * Occupational Therapy (Routine) - Closed Specialty Diagnoses / Procedures Referred By Maryse lama Referred To Contact Occupational Therapy Diagnoses Parkinsonism, unspecified Parkinsonism type (HCC) Macey Ellis NP Phone: tel: fax: [facility] OP Physical Therapy [address] [address] Phone: tel: fax: Referral ID Status Reason Start Date Expiration Date V isits Requested Visits Authorized [id number] Closed Specialty Services Required 09/02/2022 06/21/2023 30 30 Question Answer PTRFR OT Evaluate and Treat Reason for Visit parkinsonism Therapy options discussed with patient? Yes Location provided for therapy services is: Patient requested/Patient preferred Please select the performing region: [facility] [[id number]] Please select the performing department: [facility] ON OP PT [[id number]] # of visits: 24 Comments [facility] EAR OPERATIONS SPECIALIST Reason for Visit * Reason Comments New Patient * Consultation (Routine) - Closed Specialty Diagnoses / Procedures Referred By Maryse lama Referred To Contact Neurology Diagnoses Tremor Cherelle Corcoran MD Phone: tel: fax: [facility] Neurology [address] [place] [phone] Phone: tel: fax: Referral ID Status Reason Start Date Expiration Date V isits Requested Visits Authorized [id number] Closed Specialty Services Required 04/01/2022 05/01/2023 1 1 Encounter Details Date Type Department Care Team (Late st Contact Info) Description 07/18/2022 2:00 PM NUCLEAR OPERATIONS SPECIALIST Office Visit [facility] Neurology [address] [place] [phone] Macey Ellis NP [address] [place] [phone] Parkinsonism, unspecified Parkinsonism type (HCC) (Primary Dx); Tremor; Late onset Alzheimer's dementia without behavioral disturbance (HCC) Social History Tobacco Use Types Packs/Day Years Used Date Smoking Tobacco: Never Smokeless Tobacco: Never Tobacco Cessation:Counseling Given: No Alcohol Use Standard Drinks/Week Comments Not Currently 0 (1 standard drink = 0.6 oz pur e alcohol) Social Connection and Isolat ion Panel [NHANES] Answer Date Recorded In a typical week, how many times do you talk on the phone with family, friends, or neighbors? More than three times a week 08/05/2022 How often do you get togethe r with friends or relatives? More than three times a week 08/05/2022 How often do you attend chur ch or hoahaoism services? Never 08/05/2022 Do you belong to any clubs o r organizations such as yarsani groups, unions, fraternal or athletic groups, or school groups? No 08/05/2022 How often do you attend meet ings of the clubs or organizations you belong to? Never 08/05/2022 Are you , , di vorced, , never , or living with a partner? 08/05/2022 AUDIT-C Answer Date Recorded Q1: How often [...] care, and heating? Not hard at all 08/05/2022 PHQ-2 Answer Date Recorded PHQ-2 Total Score [...] getting things needed for daily living? No 08/05/2022 Housing Stability Vital Sign Answer Fuentes e [...] in a care home (including now)? No 09/10/2021 Comments No Sex and Gender Information Value Date Recorded Sex Assigned at Not on file Legal Sex Female 9:03 AM NUCLEAR OPERATIONS SPECIALIST Gender Identity Female 02/08/2020 6:39 PM CDT Sexual Orientation Not on file documented as of this encounter Last Filed Vital Signs Vital Sign Reading Time Taken Comments Blood Pressure 169/73 07/18/2022 3:06 PM NUCLEAR OPERATIONS SPECIALIST Pulse 83 07/18/2022 3:06 PM NUCLEAR OPERATIONS SPECIALIST Temperature 36.3 ??C (97.3 ??F) 07/18/2022 3:06 PM CS T Respiratory Rate 18 07/18/2022 3:06 PM NUCLEAR OPERATIONS SPECIALIST Oxygen Saturation 99% 07/18/2022 3:06 PM NUCLEAR OPERATIONS SPECIALIST Inhaled Oxygen Concentration - - Weight 72.1 kg (159 lb) 07/18/2022 3:06 PM NUCLEAR OPERATIONS SPECIALIST Height 157.5 cm (5' 2 ) 07/18/2022 3:06 PM NUCLEAR OPERATIONS SPECIALIST Body Mass Index 29.08 07/18/2022 3:06 PM NUCLEAR OPERATIONS SPECIALIST documented in this encounter Ordered Prescriptions Prescription Sig Dispense Quantity Refills Last Filled Start Date End Date benztropine (COGENTIN) 1 mg tablet Take 1.5 tablets (1.5 mg total) by mouth nightly 45 tablet 2 07/18/2022 3 documented in this encounter Progress Notes * Macey Ellis NP - 07/18/2022 2:00 PM CST Images from the original note were not included. Barbara Chakraborty is being seen as a new consult at the request of Cherelle Corcoran MD For tremor Assessments and Plan 1. Parkinsonism aBrbara has parkinsonism symptoms including bilateral pill-rolling resting hand tremor, foot tremor, lip tremor, masked faces, mild upper extremity rigidity without cogwheeling, bradykinesia, and shuffling gait. She is currently taking risperidone 2 mg nightly for schizophrenia. She was started on Cogentin 1 mg nightly in February 2022 with no improvement in her symptoms. 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 Barbara is please with her psychiatric treatment at this time does not wish to switch. Plan: -increase cogentin 1.5 mg nightly -continue to follow-up with psychiatry -referral to occupational therapy [facility] 2. Alzheimer's Dementia Barbara has a 5+ year history of dementia and requires moderate to full assistance with ADLs. She has been in several nursing homes but currently resides with her daughter. There is no history of a previous brain MRI. MMSE 15/30 today. Plan: -brain MRI -will consider starting Aricept or Namenda but no not want to change multiple medications at this time -follow-up in 3 months -Case was discussed with Dr. Wilner Bell who agrees with the above assessment and plan of care. History of Present Illness: Parkinsonism Onset: 2021 Localization: Bilateral hand and foot tremors Narrative: Barbara is a 71-year-old female who presents to the office today accompanied by her daughter as a new patient for evaluation for tremor. She has a history of schizophrenia and has been on Risperdal for the past 3 years. Over the last year, they have noticed a tremor. It started in her right hand and then progressed to her left hand. The tremor is mild with activities such as eating. She does not notice that it is worse with anxiety. The tremor occurs primarily at rest. She ambulates with a walker.She reports a fall one year ago. Alzheimer's dementia Historical Source: Daughter and self Onset: 5+ year ago Living environment: Lives with her daughter Activity level: Not independent with ADLs Narrative: Barbara has a history of dementia. She has previously been in three different nursing homes. More recently, she has been living with her daughter. Barbara requires assistance with most of her ADLs. She is able to assist with dressing herself. She denies hallucinations. She denies history of brain MRI. Review of Systems CONSTITUTIONAL: Negative for weight change, fever, fatigue EYES: Positive for blurred/double vision. Negative for Eye disease/injury, glasses/contact lenses, , glaucoma ENT: Negative for hearing loss, tinnitus, earache/drainage, sinus problems, nose bleeds, mouth sores, bleeding gums, bad breath/bad taste, sore throat/voice change, swollen glands in neck CARDIOVASCULAR: Positive for extremity swelling. Negative for Heart trouble, chest pains, sudden heartbeat changes RESPIRATORY: Positive for shortness of breath. Negative for Coughing, spitting up blood, asthma/wheezing GASTROINTESTINAL: Positive for loss of appetite, constipation. Negative for change in bowel movements, nausea/vomiting, frequent diarrhea, painful bowel movements, blood in stool, stomach pain GENITOURINARY: Positive for frequent urination, incontinence/dribbling. Negative for painful/burning urination, blood in urine, change in force or strain when urinating, kidney stones, sexual dysfunction MUSCULOSKELETAL: Positive for back pain, difficulty walking. Negative for joint pain, joint stiffness/swelling, weakness of muscles/joints, muscle pain/cramps, cold extremities SKIN: Negative for Rashes/itching, change in skin color, change in hair/nails, varicose veins, breast pain, breast lump, breast discharge NEUROLOGICAL: Positive for Headaches, lightheaded/dizziness, numbness/tingling, tremors. Negative for convulsions/seizures, , paralysis, stroke PSYCHIATRIC: Positive for memory loss/confusion. Negative for nervousness, depression, sleep problems ENDOCRINE: Positive for excessive thirst/urination, dry skin. Negative for glandular/hormone problem, thyroid disease, heat/cold intolerance, dry skin, change in hat or glove size HEMATOLOGIC/LYMPHATIC: Positive for slow healing, phlebitis. Negative for easy bruising/bleeding, anemia, past transfusion, enlarged glands Past Medical History: Diagnosis Date Arthritis Depression [...] Drinking: Not on file No Known Allergies Current Outpatient Medications Medication [...] flash glucose scanning reader (FreeStyle Madhav 2 Stout) misc Use to continually monitor glucose 1 each 0 flash glucose sensor (FreeStyle Madhav 2 Sensor) kit Use to continually monitor glucose, change every 14 days 6 kit 3 furosemide (LASIX) 40 mg tablet Take 1 tablet (40 mg total) by mouth 2 (two) times a day (Patient taking differently: Take 40 mg by mouth 2 (two) times a day rx# [id number]) 60 tablet 11 insulin glargine 100 unit/mL [...] meals Plus sliding scale) 33 mL 1 lidocaine (LIDODERM) 5 % Place 1 patch on the skin daily. apply on patch to the painful area once every day and leave on for 12 hours then off for 12 hours. Rx# [id number] in home 05/02/22 per Hanny Cruz PTA entered by Tamela Swanson RN 05/04/22 Indications: pain miscellaneous medical supply (Blood Pressure Cuff) [facility] [place] [place] to check blood pressure daily 1 each 1 multivitamin with minerals tablet Take 1 tablet by mouth daily OneTouch Verio test strips strip TEST 3 TO 4 TIMES DAILY 400 each 1 polyethylene glycol (MIRALAX) 17 gram packet Take 1 packet (17 g total) by mouth daily (Patient taking differently: Take 17 g by mouth as needed) risperiDONE (RisperDAL) 2 mg tablet Take 1 tablet (2 mg total) by mouth nightly 30 tablet 11 syringe with needle, insulin (INSULIN SYRINGE-NEEDLE U-100 [facility]) 3 times a day valsartan (DIOVAN) 40 mg tablet Take 1 tablet (40 mg total) by mouth daily 90 tablet 3 ketoconazole (NIZORAL) 2 % cream Apply topically 2 (two) times a day (Patient not taking: Reported on 07/18/2022) 30 g 0 lancets [facility] [place] Check blood sugar up to 3 times a day (Patient not taking: Reported on 07/18/2022) 100 each 3 pregabalin (LYRICA) 150 mg capsule Take 1 capsule (150 mg total) by mouth nightly 30 capsule 2 No current facility-administered medications for this visit. Physical Exam Neurological Exam Mental Status Awake and alert. Oriented only to person and place. Recalls 3 of 3 objects immediately. At 3 minutes recalls 0 of 3 objects. Unable to copy figure. Clock drawing is abnormal. Speech is normal. Able to read. Follows one-step commands. Unable to perform serial calculations. Difficulty spelling words backwards. Fund of knowledge is abnormal. Apraxia absent. MMSE score: 15. Cranial Nerves CN II: Right visual acuity: Normal. Left visual acuity: Normal. Visual cavanaugh full to confrontation. CN III, IV, : Extraocular movements intact bilaterally. Normal lids and orbits bilaterally. Pupils equal round and reactive to light bilaterally. CN V: Facial sensation is normal. CN VII: Full and symmetric facial movement. CN VIII: Hearing is normal. CN IX, X: Palate elevates symmetrically. Normal gag reflex. CN XI: Shoulder shrug strength is normal. CN XII: Tongue midline without atrophy or fasciculations. Motor Normal muscle bulk throughout. No fasciculations present. Increased muscle tone. The following abnormal movements were seen: Bilateral pill-rolling resting tremor. Strength is 5/5 throughout all four extremities. Sensory Sensation is intact to light touch, pinprick, vibration and proprioception in all four extremities. Reflexes Right Left Brachioradialis 1+ 1+ Biceps 1+ 1+ Patellar 1+ 1+ Achilles 1+ 1+ Coordination Right: Bitmmb-nj-eykd abnormality: Bradykinesia.Left: Wwqjkv-kn-rquy abnormality: Bradykinesia. Gait Casual gait: Normal stance. Reduced stride length. Festinating gait. Ambulates with walker. My total encounter time on 07/18/2022 was 60 minutes which was spent in the activities documented inthe note. This includes time spent prior to the visit and after the visit in direct care of the patient. This time does not include time spent in any separately reportable services. Anna Ellis DNP, KEEPER HELPER-C [facility] [place] [phone] cc:Cherelle Corcoran MD Cosigned by Wilner Bell MD at 08/18/2022 7:20 AM NUCLEAR OPERATIONS SPECIALIST EAR OPERATIONS SPECIALIST EAR OPERATIONS SPECIALIST documented in this encounter Plan of Treatment Upcoming Encounters Date Type Department Care Team (Latest Contact Info) Description 07/13/2024 9:00 AM NUCLEAR OPERATIONS SPECIALIST Hospital Encounter [facility] GI Lab [address] [place] [id number] Jaya Grier MD [address] [place] [address] DR GAINES [address] [place] [phone] 07/13/2024 9:00 AM NUCLEAR OPERATIONS SPECIALIST - 07/13/2024 9:30 AM NUCLEAR OPERATIONS SPECIALIST Surgery [facility] [address] [place] [phone] Jaya Grier MD [address] [place] [address] DR GAINES [address] [place] [address] ESOPHAGOGASTRODUODENOSCOPY Scheduled Procedures Name Priority Associated Diagnoses Date/Ti me ESOPHAGOGASTRODUODENOSCOPY Anemia, unspecified type Gastritis without bleeding, unspecified chronicity, unspecified gastritis type 07/13/2024 9:00 AM NUCLEAR OPERATIONS SPECIALIST COLONOSCOPY Iron deficiency anemia due to chronic blood loss Scheduled Referrals Name Type Priority Associated Diagnoses Orde r Schedule Ambulatory referral order to Occupational Therapy - Outpatient Referral Routine Parkinsonism, unspecified Parkinsonism type (HCC) Expected: 08/01/2022 (Approximate), Expires: 07/18/2023 documented as of this encounter Visit Diagnoses Diagnosis Parkinsonism, unspecified Parkinsonism type (HCC)- Primary Tremor Abnormal involuntary movements Late onset Alzheimer's dementia without behavioral disturbance (HCC) Anemia, unspecified type Gastritis without bleeding, unspecified chronicity, unspecified gastritis type documented in this encounter Discontinued Medications Medication Sig Discontinue Reason Start Date End Da te benztropine (COGENTIN) 1 mg tablet Take 1 tablet (1 mg total) by mouth nightly Reorder 03/19/2022 07/18/2022 documented as of this encounter Orders Outpatient Referral Count Last Ordered Date Fir st Ordered Date AMB REFERRAL TO NEUROLOGY 1 07/18/2022 documented in this encounter Care Teams Templer Head Relationship Specialty Start Date End Date Cherelle Corcoran MD PCP - General Family Medicine 08/30/19 Mark Queen MD Consulting Physician Infectious Diseases 01/10/20 documented as of this encounter
--- OUTSIDE RECORDS SUMMARY | 2024-07-04 04:12 | XMS_ITS | Encounter Summary ---
Author Organization [facility] Address [address] [facility] [address] [place] [address] Phone Care Team Providers Care Rural Mail Contractor Name Role Phone Cherelle Corcoran MD Primary Care Pro vider QueenMark Perez MD Unavailable [phone] Reason for Visit * Consultation (Routine) - Closed Specialty Diagnoses / Procedures Referred By Maryse lama Referred To Contact Endocrinology Diagnoses Other diabetic neurological complication associated with type 2 diabetes mellitus (HCC) Type 2 diabetes mellitus with diabetic neuropathy, with long-term current use of insulin (HCC) Cherelle Corcoran MD Phone: tel: fax: Anant Kauffman MD [address] [facility] [phone] [place] [address] Phone: tel: fax: Referral ID Status Reason Start Date Expiration Date V isits Requested Visits Authorized [id number] Closed Specialty Services Required 12/30/2021 01/29/2023 99 99 Encounter Details Date Type Department Care Team (Latest Contact Info) Description 06/17/2022 3:40 PM TRAY DELIVERY AIDE Office Visit [facility] Endocrinology Metabolism and Lipid [address] [facility] [address] [place] [address] [place] [address] Anant Kauffman MD [address] [phone] [place] [address] Hyperlipidemia associated with type 2 diabetes mellitus (HCC) (Primary Dx); Type 2 diabetes mellitus with diabetic neuropathy, with long-term current use of insulin (CMS/HCC) (HCC); 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 2 diabetes mellitus (CMS/HCC) (HCC); Other diabetic neurological complication associated with type 2 diabetes mellitus (HCC) Social History Tobacco Use Types Packs/Day [...] you attend chur ch or sabianism services? Never 09/10/2021 Do you belong to [...] slept in a intermediate (including now)? No 09/10/2021 Comments No Sex and Gender Information Value Date Recorded Sex Assigned at Not on file Legal Sex Female 9:03 AM TRAY DELIVERY AIDE Gender Identity Female 02/08/2020 6:39 PM CDT Sexual Orientation Not on file documented as of this encounter Last Filed Vital Signs Vital Sign Reading Time Taken Comments Blood Pressure 114/65 06/17/2022 4:02 PM TRAY DELIVERY AIDE Pulse 81 06/17/2022 4:02 PM TRAY DELIVERY AIDE Temperature 36.8 ??C (98.3 ??F) 06/17/2022 4:02 PM CS T Respiratory Rate - - Oxygen Saturation - - Inhaled Oxygen Concentration - - Weight 70.3 kg (155 lb) 06/17/2022 4:02 PM TRAY DELIVERY AIDE Height 157.5 cm (5' 2 ) 06/17/2022 4:02 PM TRAY DELIVERY AIDE Body Mass Index 28.35 06/17/2022 4:02 PM TRAY DELIVERY AIDE documented in this encounter Progress Notes * Anant Kauffman MD - 06/17/2022 9:20 AM CST Images from the original note were not included. Endocrine Follow Up Patient Visit Subjective 71 y.o. female presenting for follow up of Type II DM . Last encounter 03/03/22 HPI: 71 y old female with PMH of Type II DM, HTN,HDL , mood disorder is here with her daughter for follow up of her Diabetes. Brief history : Type II DM was diagnosed about 30 years ago She used to be on lantus 60 units , Trulicity 4.5 mg and Jardiance 25 mg She was hospitalized between 08/07/21 -- 08/14/21 with fatigue , acute on chronic kidney disease , . During hospitalization , she was on lantus 15 units and humalog 5 units 11/15/21--11/26/21 hospitalized with cough. Prior to it she was treated for PNA and DVT. Tested positive for metapneumovirus Current regimen lantus 34 units humalog 12 unit with meals + SSI 1 :50 for BG > 150 mg/dl and Trulicity 1.5 mg/dl ( restarted around 12/04/21) She is on Madhav. 14 day madhav download She has neuropathy, on lyrica 150 mg Last eye exam 05/2021 , no DR She denied having any low Bg recently Wt has been stable 06/09/22 A1c 8% 05/13/22 S Cr 1.90 01/14/22 S Cr 1.80 12/18/21 S Cr 2 08/08/21 S cr 1.72 08/05/21 A1c 8 Alb/creat 1478 02/07/21 Tc 133 Trig 147 HDL 51 LDL 53 TSH 1.54 B 12 684 Vit D 21 Past Medical History: Diagnosis Date Arthritis Depression [...] noted in the HPI Objective Vitals BP 114/65 Pulse 81 Temp 36.8 ??C (98.3 ??F) Ht 157.5 cm (5' 2 ) Wt 70.3 kg (155 lb) BMI 28.35 kg/m?? Physical exam: General Appearance: Alert, cooperative, [...] 09/10/2021 Lab Results Component Value Date PTH 38 04/01/2022 Assessment/Plan: 71 y old female with PMH of Type II DM, HTN,HDL , mood disorder is here with her daughter for follow up of her Diabetes. Type II Dm Current regimen lantus 34- units humalog 12 unit with meals + SSI 2 :50 for BG > 150 mg/dl and Trulicity 1.55 mg/dl ( restarted around 12/04/21) Her HBA1c on 06/09/22 was 8 % 7.5 % Per her madhav data, her Bg is in target range 65 % of the time. GMI 7.1 % Her Bg has improved but not at goal yet She has been having some high BG readings after meals Continue with current regimen Asked her to take 1-2 units units extra humalog with a big meal of high carbohydrate meal Asked her daughter to bring her reader to clinic in 2 weeks for download, will adjust her insulin doses based on her madhav data She also has CKD with albuminuria . Used to be on jardiance was stopped 2/ STEFANO. Will consider restarting jardiance at a later date ( once she feels better, was very weak in the clinic today) UTD with eye exam no Dr 08/05/21 A1c 8 Alb/creat 1478 Neuropathy: On lyrica 150 mg Will add vitamin B complex and alpha lipoic acid next visit Hyperlipidemia : 02/07/21 Tc 133 Trig 147 HDL 51 LDL 53 09/10/21 Tc 84 Trig 153 HDL 33 LDL 20 On Atorvastatin 40 mg Continue same CKD 05/13/22 S Cr 1.90 With microalbuminuria Jardiance on hold 07/24 STEFANO Will consider starting low jardiance at later date ( once she feels better, wass very weak in the clinic today) She was very weak today No focal neurological deficits Vitals stable If her symptoms do not improve , asked her to daughter to take her to ER Problem List Cardiac and Vasculature Hyperlipidemia associated with type 2 diabetes mellitus (HCC) - Primary Endocrine and Metabolic Type 2 diabetes mellitus with diabetic neuropathy, with long-term current use of insulin (CMS/HCC) (HCC) Genitourinary and Reproductive 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 2 diabetes mellitus (CMS/HCC) (HCC) Neuro Diabetic neuropathy (HCC) DELIVERY AIDE documented in this encounter Plan of Treatment Upcoming Encounters Date Type Department Care Team (Latest Contact Info) Description 07/13/2024 9:00 AM TRAY DELIVERY AIDE Hospital Encounter [facility] [address] [place] [address] Jaya Grier MD [facility] [address] GAINES [address] [place] [address] 07/13/2024 9:00 AM TRAY DELIVERY AIDE - 07/13/2024 9:30 AM TRAY DELIVERY AIDE Surgery [facility] [address] [place] [address] Jaya Grier MD [address] [facility] [place] [address] ESOPHAGOGASTRODUODENOSCOPY Scheduled Procedures Name Priority Associated Diagnoses Date/Ti me ESOPHAGOGASTRODUODENOSCOPY Anemia, unspecified type Gastritis without bleeding, unspecified chronicity, unspecified gastritis type 07/13/2024 9:00 AM TRAY DELIVERY AIDE COLONOSCOPY Iron deficiency anemia due to chronic blood loss documented as of this encounter Visit Diagnoses Diagnosis Hyperlipidemia associated with type 2 diabetes mellitus (HCC)- Primary Type 2 diabetes mellitus with diabetic neuropathy, with long-term current use of insulin (HCC) 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 2 diabetes mellitus (CMS/HCC) (HCC) Other diabetic neurological complication associated with type 2 diabetes mellitus (HCC) Anemia, unspecified type Gastritis without bleeding, unspecified chronicity, unspecified gastritis type documented in this encounter Care Teams Rural Mail Contractor Relationship Specialty Start Date End Date Cherelle Corcoran MD PCP - General Family Medicine 08/30/19 Mark Queen MD Consulting Physician Infectious Diseases 01/10/20 documented as of this encounter
--- OUTSIDE RECORDS SUMMARY | 2024-07-04 04:12 | XMS_ITS | Encounter Summary ---
Author Organization [facility] Home Care Servic es Address [address] [place] [address] Phone Care Team Providers Care Emulsion Operator Name Role Phone Cherelle Corcoran MD Primary Care Pro vider Mark Queen MD Unavailable [phone] Reason for Visit * Auth/Cert Specialty Diagnoses / Procedures Referred By Maryse lama Referred To Contact Referral ID Status Reason Start Date Expiration Date Visits Re quested Visits Authorized [id number] 1 1 Encounter Details Date Type Department Care Team (Late st Contact Info) Description 06/06/2022 Home Care Visit [facility] Home Health - [address] [place] [address] Jewel Sow, [facility] TELEPHONE ENCOUNTER Social History Tobacco Use Types [...] you attend chur ch or druze services? Never 09/10/2021 Do you belong to [...] on file Legal Sex Female 9:03 AM POOL MANAGER Gender Identity Female 02/08/2020 6:39 PM CDT Sexual Orientation Not on file documented as of this encounter Plan of Treatment Upcoming Encounters Date Type Department Care Team (Latest Contact Info) Description 07/13/2024 9:00 AM POOL MANAGER Hospital Encounter [facility] GI Lab [address] [place] [address] Jaya Grier MD [address] [place] [address] 07/13/2024 9:00 AM POOL MANAGER - 07/13/2024 9:30 AM POOL MANAGER Surgery [facility] GI Lab [address] [place] [address] Jaya Grier MD [address] [place] [address] ESOPHAGOGASTRODUODENOSCOPY Scheduled Procedures Name Priority Associated Diagnoses Date/Ti me ESOPHAGOGASTRODUODENOSCOPY Anemia, unspecified type Gastritis without bleeding, unspecified chronicity, unspecified gastritis type 07/13/2024 9:00 AM POOL MANAGER COLONOSCOPY Iron deficiency anemia due to chronic blood loss documented as of this encounter Visit Diagnoses Not on filedocumented in this encounter Care Teams Emulsion Operator Relationship Specialty Start Date End Date Cherelle Corcoran MD PCP - General Family Medicine 08/30/19 Mark Queen MD Consulting Physician Infectious Diseases 01/10/20 documented as of this encounter
--- OUTSIDE RECORDS SUMMARY | 2024-07-04 04:12 | XMS_ITS | Encounter Summary ---
Author Organization [facility] Medical [facility] Address [address] [place] [address] Care Team Providers Care Heavy Equipment Supervisor Name Role Phone Cherelle Corcoran MD Primary Care Pro vider Mark Queen MD Unavailable [phone]- [phone] Melania Lee RN Unavailable Anam Costa LCSW Unavailable Unavailabl e Reason for Visit * Reason Comments Hypertension Hyperlipidemia Encounter Details Date Type Department Care Team (Latest Contact Info) Description 08/13/2022 12:45 PM CABLE ARMORER OPERATOR Office Visit [facility] Medical [facility] Cardiology [address] [address] [facility] [address] [place] [address] Santo Vail MD [address] [facility] [address] [place] [address] Hyperlipidemia associated with type 2 diabetes mellitus (HCC) (Primary Dx); Hypertension associated with diabetes (HCC) Social History [...] in a long term (including now)? No 08/08/2022 Comments No Sex and Gender Information Value Date Recorded Sex Assigned at Not on file Legal Sex Female 9:03 AM CABLE ARMORER OPERATOR Gender Identity Female 02/08/2020 6:39 PM CDT Sexual Orientation Not on file documented as of this encounter Last Filed Vital Signs Vital Sign Reading Time Taken Comments Blood Pressure 130/50 08/13/2022 1:00 PM CABLE ARMORER OPERATOR Pulse 75 08/13/2022 1:00 PM CABLE ARMORER OPERATOR Temperature - - Respiratory Rate - - Oxygen Saturation 97% 08/13/2022 1:00 PM CABLE ARMORER OPERATOR Inhaled Oxygen Concentration - - Weight - - Height - - Body Mass Index - - documented in this encounter Progress Notes * Santo Vail MD - 08/13/2022 12:45 PM CST Images from the original note were not included. Cardiology Return Clinic Visit HPI: We are seeing Barbara Chakraborty in clinic today for initial office visit. Patient is a 71 y.o. female with past medical history notable for diabetes and hypertension now presenting to establish care. She has been having some lower [...] and generalized weakness. Also recent hospitalization at [place] with pneumonia. She was also diagnosed with left lower extremity DVT and started on Eliquis. No chest pain or dyspnea. More energy. 06/04/2022 Not having any significant cardiac issues. 08/13/2022 Recent admission w/ altered mental status, resolved. Otherwise she is feeling well. Review of Systems: 14 point ROS was discussed with the patient and is negative except as noted in the history of present illness. Past Medical History: Diagnosis Date Arthritis Depression Diabetic neuropathy (HCC) Hyperlipidemia Hypertension Schizophrenia (HCC) Type 2 diabetes mellitus (HCC) Past Surgical History: Procedure Laterality Date SECTION Right right foot TOE AMPUTATION Right 01/06/2020 4th toe amp/ foot debridement/ Dr. Anat Pelayo Current Outpatient Medications: acetaminophen, 650 mg, oral, Q6H PRN albuterol HFA, 2 puff, inhalation, Q4H PRN apixaban, 5 mg, oral, Q12H atorvastatin, 20 mg, oral, Daily BD Arlyn 2nd Gen Pen Needle, USE TO INJECT BASAGLAR EVERY NIGHT AT BEDTIME benztropine, 1.5 mg, oral, Nightly blood pressure monitor, Check BP as instructed carvediloL, 6.25 mg, oral, BID with meals (bkfst, dinner) conner.stocking,thigh,reg,med, Wear as much as possible dulaglutide, 1.5 mg, subcutaneous, Q7 Days famotidine, 10 mg, oral, Nightly ferrous sulfate, 65 mg of elemental iron, oral, Daily with breakfast FreeStyle Madhav 2 [place], Use to continually monitor glucose FreeStyle Madhav 2 Sensor, Use to continually monitor glucose, change every 14 days furosemide, 40 mg, oral, BID insulin glargine, 25 Units, subcutaneous, Nightly insulin lispro, 12 Units, subcutaneous, TID with meals lancets, Check blood sugar up to 3 times a day Blood Pressure Cuff, Use to check blood pressure daily OneTouch Verio test strips, TEST 3 TO 4 TIMES DAILY polyethylene glycol, 17 g, oral, Daily pregabalin, 150 mg, oral, Nightly risperiDONE, 2 mg, oral, Nightly syringe with needle, insulin (INSULIN SYRINGE-NEEDLE U-100 MISC), 3 times a day No Known Allergies Social History Tobacco Use Smoking status: Never Smoker Smokeless tobacco: Never Used Substance Use Topics Alcohol use: Not Currently Family History Problem Relation Age of Onset Stomach cancer Father Physical Exam: Vitals BP 130/50 (BP Location: Left arm, Patient Position: Sitting) Pulse 75 SpO2 97% General: Pleasant female in no acute distress. [...] Review: Sodium Date Value Ref Range Status 08/07/2022 141 135 - 145 mmol/L Final 08/06/2022 139 135 - 145 mmol/L Final 08/03/2022 145 135 - 145 mmol/L Final Potassium, pl Date Value Ref Range Status 08/07/2022 4.9 3.3 - 4.9 mmol/L Final 08/06/2022 4.4 3.3 - 4.9 mmol/L Final 08/03/2022 4.1 3.3 - 4.9 mmol/L Final Chloride Date Value Ref Range Status 08/07/2022 106 97 - 110 mmol/L Final 08/06/2022 106 97 - 110 mmol/L Final 08/03/2022 108 97 - 110 mmol/L Final CO2 Date Value Ref Range Status 08/07/2022 22 22 - 32 mmol/L Final 08/06/2022 22 22 - 32 mmol/L Final 08/03/2022 26 22 - 32 mmol/L Final BUN Date Value Ref Range Status 08/07/2022 55 (H) 8 - 25 mg/dL Final 08/06/2022 54 (H) 8 - 25 mg/dL Final 08/03/2022 50 (H) 8 - 25 mg/dL Final Creatinine Date Value Ref Range Status 08/07/2022 2.24 (H) 0.60 - 1.10 mg/dL Final 08/06/2022 1.96 (H) 0.60 - 1.10 mg/dL Final 08/03/2022 1.82 (H) 0.60 - 1.10 mg/dL Final eGFR Date Value Ref Range Status 08/07/2022 23 mL/min/1.73 m2 Final Comment: Interpretive Data [...] Current interpretive data was last reviewed 2021. 08/06/2022 27 mL/min/1.73 m2 Final Comment: Interpretive Data Reference [...] Current interpretive data was last reviewed 2021. 08/03/2022 29 mL/min/1.73 m2 Final Comment: Interpretive Data Reference [...] Current interpretive data was last reviewed 2021. Glucose, POC Date Value Ref Range Status 08/07/2022 159 70 - 199 mg/dL Final Alk phos Date Value Ref Range Status 08/01/2022 158 (H) 40 - 130 Units/L Final 06/19/2022 158 (H) 40 - 130 Units/L Final Comment: Testing performed by: [address] [id number] 05/08/2022 129 40 - 130 Units/L Final Bilirubin, total Date Value Ref Range Status 08/01/2022 <0.2 0.1 - 1.2 mg/dL Final 06/19/2022 0.2 0.1 - 1.2 mg/dL Final Comment: Testing performed by: [address] [id number] 05/08/2022 0.2 0.1 - 1.2 mg/dL Final Bilirubin, direct Date Value Ref Range Status 08/07/2021 <0.2 0.1 - 0.3 mg/dL Final Albumin Date Value Ref Range Status 08/01/2022 3.4 (L) 3.5 - 5.0 g/dL Final 06/19/2022 3.8 3.5 - 5.0 g/dL Final Comment: Testing performed by: [address] [id number] 05/08/2022 3.6 3.5 - 5.0 g/dL Final ALT Date Value Ref Range Status 08/01/2022 73 (H) 7 - 45 Units/L Final 06/19/2022 67 (H) 7 - 45 Units/L Final Comment: Testing performed by: [address] [id number] 05/08/2022 26 7 - 45 Units/L Final AST Date Value Ref Range Status 08/01/2022 65 (H) 10 - 45 Units/L Final 06/19/2022 41 10 - 45 Units/L Final Comment: SLIGHTLY HEMOLYZED: Hemolysis interferes with the above test. Testing performed by: [address] [id number] 05/08/2022 23 10 - 45 Units/L Final TSH Date Value Ref Range Status 09/02/2021 1.52 0.30 - 4.20 mcIUnit/mL Final Comment: Testing performed by: [address] [id number] 02/07/2021 1.54 0.30 - 4.20 mcIUnit/mL Final Comment: Testing performed by: [address] [id number] TSH W REFLEX TO FT4 Date Value [...] last revised on 2018. Testing performed by: [address] [id number] 04/02/2020 211 (H) 0 - 199 mg/dL [...] last revised on 2018. Testing performed by: [facility], [address] [place] [address]., [id number] 04/02/2020 123 0 - 149 mg/dL Final [...] Pediatrics 2011;128:S213 2. NCEP Expert Panel. Circulation 2003;110:227 Current Interpretive Data was last revised on 2018. Testing performed by: [facility], [address] [place] [address]., [id number] LDL, calculated Date Value Ref Range Status [...] last revised on 2018. Testing performed by: [facility], [address] [place] [address]., [id number] LDL Cholesterol, Calc Date Value Ref Range [...] 0-125 pg/mL >74 years: 0-450 pg/mL Method: [employer] technology Assessement and Plan -hypertension. She is on Coreg 6.25 b.i.d., Lasix 40 mg b.i.d. -hyperlipidemia. She is on atorvastatin 20 mg daily. Lipids reviewed. Check today. -left lower extremity DVT. She is on Eliquis 5 mg twice daily. -DM2. She is managed by primary care physician. On Jardiance in addition to her other medications, which is a good choice for cardiac risk modification. -CKD 3. Sees Dr Ryan. Cr around 2 most recently. -Cardiac Risk Reduction: I have discussed with the patient the importance of healthy diet and regular exercise. Continue ASA. -schizophrenia plan: BMP, lipids 6 mo f/u Cardiac Testing: TTE 12/2019 normal EF, normal diastolic function, no valvular disease We appreciate the opportunity to take care of Barbara Chakraborty. Please do not hesitate to call us if you have any questions or concerns. Sincerely yours, Satno Vail MD E ARMORER OPERATOR documented in this encounter Plan of Treatment Upcoming Encounters Date Type Department Care Team (Latest Contact Info) Description 07/13/2024 9:00 AM CABLE ARMORER OPERATOR Hospital Encounter [facility] GI Lab [address] [place], [place] [id number] Jaya Grier MD [address] [place] [address] 07/13/2024 9:00 AM CABLE ARMORER OPERATOR - 07/13/2024 9:30 AM CABLE ARMORER OPERATOR Surgery [facility] GI Lab [address] [place] [address] Jaya Grier MD [address] [place] [address] ESOPHAGOGASTRODUODENOSCOPY Scheduled Procedures Name Priority Associated Diagnoses Date/Ti me ESOPHAGOGASTRODUODENOSCOPY Anemia, unspecified type Gastritis without bleeding, unspecified chronicity, unspecified gastritis type 07/13/2024 9:00 AM CABLE ARMORER OPERATOR COLONOSCOPY Iron deficiency anemia due to chronic blood loss documented as of this encounter Visit Diagnoses Diagnosis Hyperlipidemia associated with type 2 diabetes mellitus (HCC)- Primary Hypertension associated with diabetes (HCC) Unspecified essential hypertension Anemia, unspecified type Gastritis without bleeding, unspecified chronicity, unspecified gastritis type documented in this encounter Care Teams Heavy Equipment Supervisor Relationship Specialty Start Date End Date Cherelle Corcoran MD PCP - General Family Medicine 08/30/19 Mark Queen MD Consulting Physician Infectious Diseases 01/10/20 Melania Lee RN [address] [place] [address] [address] [place] [address] Environmental Services Associate 07/22/22 08/21/22 Anam Costa LCSW [address] [place] [address] [address] [place] [address] Operating Room Nurse 08/08/22 02/18/23 documented as of this encounter
--- OUTSIDE RECORDS SUMMARY | 2024-07-04 04:13 | XMS_ITS | Encounter Summary ---
Author Organization [facility] Home Care Servic es Address [address] [place] [address] Phone Care Team Providers Care Retail Support Specialist Name Role Phone Cherelle Corcoran MD Primary Care Pro vider Mark Queen MD Unavailable [phone] Reason for Visit * Auth/Cert Specialty Diagnoses / Procedures Referred By Maryse lama Referred To Contact Referral ID Status Reason Start Date Expiration Date Visits Re quested Visits Authorized [id number] 1 1 Encounter Details Date Type Department Care Team (Late st Contact Info) Description 06/01/2022 Home Care Visit [facility] Home Health - [address] [place] [address] Jewel Sow, [facility] TELEPHONE ENCOUNTER Social History Tobacco Use [...] on file Legal Sex Female 9:03 AM CONTRACT ENGINEER Gender Identity Female 02/08/2020 6:39 PM CDT Sexual Orientation Not on file documented as of this encounter Plan of Treatment Upcoming Encounters Date Type Department Care Team (Latest Contact Info) Description 07/13/2024 9:00 AM CONTRACT ENGINEER Hospital Encounter [facility] GI Lab [address] [place] [address] Jaya Grier MD [address] [place] [address] 07/13/2024 9:00 AM CONTRACT ENGINEER - 07/13/2024 9:30 AM CONTRACT ENGINEER Surgery [facility] GI Lab [address] [place] [address] Jaya Grier MD [address] [place] [address] ESOPHAGOGASTRODUODENOSCOPY Scheduled Procedures Name Priority Associated Diagnoses Date/Ti me ESOPHAGOGASTRODUODENOSCOPY Anemia, unspecified type Gastritis without bleeding, unspecified chronicity, unspecified gastritis type 07/13/2024 9:00 AM CONTRACT ENGINEER COLONOSCOPY Iron deficiency anemia due to chronic blood loss documented as of this encounter Visit Diagnoses Not on filedocumented in this encounter Care Teams Retail Support Specialist Relationship Specialty Start Date End Date Cherelle Corcoran MD PCP - General Family Medicine 08/30/19 Mark Queen MD Consulting Physician Infectious Diseases 01/10/20 documented as of this encounter
--- OUTSIDE RECORDS SUMMARY | 2024-07-04 04:13 | XMS_ITS | Encounter Summary ---
Author Organization [facility] Home Care Servic es Address [address] [place] [address] Phone Care Team Providers Care Care Process Manager Name Role Phone Cherelle Corcoran MD Primary Care Pro vider Mark Queen MD Unavailable [phone] Reason for Visit * Auth/Cert Specialty Diagnoses / Procedures Referred By Maryse lama Referred To Contact Referral ID Status Reason Start Date Expiration Date Visits Re quested Visits Authorized [id number] 1 1 Encounter Details Date Type Department Care Team (Late st Contact Info) Description 04/22/2022 Home Care Visit [facility] Home Health - [place] [address] [address] [place] [address] Yamilka Hoang, PT TELEPHONE ENCOUNTER Social History Tobacco Use Types [...] on file Legal Sex Female 9:03 AM PLASTICS NURSE Gender Identity Female 02/08/2020 6:39 PM CDT Sexual Orientation Not on file documented as of this encounter Plan of Treatment Upcoming Encounters Date Type Department Care Team (Latest Contact Info) Description 07/13/2024 9:00 AM PLASTICS NURSE Hospital Encounter [facility] GI Lab [address] [place] [address] Jaya Grier MD [facility] [facility] [address] [place] [address] 07/13/2024 9:00 AM PLASTICS NURSE - 07/13/2024 9:30 AM PLASTICS NURSE Surgery [facility] GI Lab [address] [place] [address] Jaya Grier MD [facility] [address] [place] [address] ESOPHAGOGASTRODUODENOSCOPY Scheduled Procedures Name Priority Associated Diagnoses Date/Ti me ESOPHAGOGASTRODUODENOSCOPY Anemia, unspecified type Gastritis without bleeding, unspecified chronicity, unspecified gastritis type 07/13/2024 9:00 AM PLASTICS NURSE COLONOSCOPY Iron deficiency anemia due to chronic blood loss documented as of this encounter Visit Diagnoses Not on filedocumented in this encounter Care Teams Care Process Manager Relationship Specialty Start Date End Date Cherelle Corcoran MD PCP - General Family Medicine 08/30/19 Mark Queen MD Consulting Physician Infectious Diseases 01/10/20 documented as of this encounter
--- OUTSIDE RECORDS SUMMARY | 2024-07-04 04:13 | XMS_ITS | Encounter Summary ---
Author Organization [facility] Medical Group Address [address] [place] [address] Care Team Providers Care Forge Hand Name Role Phone Cherelle Corcoran MD Primary Care Pro vider Mark Queen MD Unavailable [phone] Reason for Visit * Reason Onset Date Comments Care Analysis Consultant JOY ED 05/12/2022 Appointment Ne eded Encounter Details Date Type Department Care Team (Late st Contact Info) Description 05/12/2022 Telephone [facility] Primary Care [address] [facility] [facility] [address] [place] [address] Xenia Padilla, DANIELLE [address] [facility] [address] [place] [address] Care Analysis Consultant JOY ED (Appointment Needed) Social History Tobacco Use Types Packs/Day Years [...] you attend chur ch or quaker services? Never 09/10/2021 Do you belong to [...] slept in a fpc (including now)? No 09/10/2021 Comments No Sex and Gender Information Value Date Recorded Sex Assigned at Not on file Legal Sex Female 9:03 AM PHARMACY BENEFIT MANAGER Gender Identity Female 02/08/2020 6:39 PM CDT Sexual Orientation Not on file documented as of this encounter Miscellaneous Notes * Telephone Encounter - Yoly Elkins LPN - 05/12/2022 10:39 AM PHARMACY BENEFIT MANAGER Appointment scheduled for 05/13/2022. MACY BENEFIT MANAGER * Telephone Encounter - Xenia Padilla LPN - 05/12/2022 10:10 AM PHARMACY BENEFIT MANAGER This Medicare patient had an ED visit at [facility] Emergency Department for Fall, History of diabetes mellitus, type II, History of chronic kidney disease, History of Parkinson's disease, and History of schizophrenia on 05/08/2022 - 05/09/2022 (5 hours). PCP appointment was not able chris scheduled at this time due to no availability on PCP schedule. Please have someone with the office call Areli Gayle DTR, directly to schedule on or before 05/16 to meet Medicare's 7-day post ED follow up. Thank you! Areli Gayle [phone] MACY BENEFIT MANAGER documented in this encounter Plan of Treatment Upcoming Encounters Date Type Department Care Team (Latest Contact Info) Description 07/13/2024 9:00 AM PHARMACY BENEFIT MANAGER Hospital Encounter [facility] GI Lab [address] [place] [address] Jaya Grier MD [address] [place] [address] 07/13/2024 9:00 AM PHARMACY BENEFIT MANAGER - 07/13/2024 9:30 AM PHARMACY BENEFIT MANAGER Surgery [facility] GI Lab [address] [place] [address] Jaya Grier MD [address] [place] [address] ESOPHAGOGASTRODUODENOSCOPY Scheduled Procedures Name Priority Associated Diagnoses Date/Ti me ESOPHAGOGASTRODUODENOSCOPY Anemia, unspecified type Gastritis without bleeding, unspecified chronicity, unspecified gastritis type 07/13/2024 9:00 AM PHARMACY BENEFIT MANAGER COLONOSCOPY Iron deficiency anemia due to chronic blood loss documented as of this encounter Visit Diagnoses Not on filedocumented in this encounter Care Teams Forge Hand Relationship Specialty Start Date End Date Cherelle Corcoran MD PCP - General Family Medicine 08/30/19 Mark Queen MD Consulting Physician Infectious Diseases 01/10/20 documented as of this encounter
--- OUTSIDE RECORDS SUMMARY | 2024-07-04 04:13 | XMS_ITS | Encounter Summary ---
Author Organization [facility] Address [address] [place] [address] Care Team Providers Care Chainstitch Binder Name Role Phone Cherelle Corcoran MD Primary Care Pro vider Mark Queen MD Unavailable + [phone] Brandie Callejas Unavailable Unavail able Xenia Padilla LPN Unavailable [phone] Reason for Visit * Reason Onset Date Comments Medical Question/Miscellaneous 05/26/2022 Encounter Details Date Type Department Care Team ([facility] st Contact Info) Description 05/26/2022 Telephone [facility] Primary Care [address] [facility] [address] [place] [address] Cherelle Corcoran MD [address] [facility] [address] [place] [address] Medical Question/Miscellaneous Social History Tobacco Use [...] you attend chur ch or presybeterian services? Never 09/10/2021 Do you belong to [...] in a long term (including now)? No 09/10/2021 Comments No Sex and Gender Information Value Date Recorded Sex Assigned at Not on file Legal Sex Female 9:03 AM POLE SHAVER HELPER Gender Identity Female 02/08/2020 6:39 PM CDT Sexual Orientation Not on file documented as of this encounter Miscellaneous Notes * Telephone Encounter - Cristina Rod - 05/26/2022 2:56 PM CST Medical Question/Miscellaneous Caller???s Concern: Patient's daughter called in to obtain Neurology number. Caller???s Call back #: [phone] Does message need to be routed?No SHAVER HELPER documented in this encounter Plan of Treatment Upcoming Encounters Date Type Department Care Team (Latest Contact Info) Description 07/13/2024 9:00 AM POLE SHAVER HELPER Hospital Encounter [facility] [address] [place] [id number] Jaya Grier MD [address] [place] [address] DR DAVIS [address] [place] [phone] 07/13/2024 9:00 AM POLE SHAVER HELPER - 07/13/2024 9:30 AM POLE SHAVER HELPER Surgery [facility] [address] [place] [phone] Jaya Grier MD [facility] [address] DAVIS [address] [place] [phone] ESOPHAGOGASTRODUODENOSCOPY Scheduled Procedures Name Priority Associated Diagnoses Date/Ti ms ESOPHAGOGASTRODUODENOSCOPY Anemia, unspecified type Gastritis without bleeding, unspecified chronicity, unspecified gastritis type 07/13/2024 9:00 AM POLE SHAVER HELPER COLONOSCOPY Iron deficiency anemia due to chronic blood loss documented as of this encounter Visit Diagnoses Not on filedocumented in this encounter Additional Health Concerns Infection Onset Date Last Indicated Resolved Time COVID: Suspected 06/19/2022 06/19/2022 06/19/2022 12:37 PM POLE SHAVER HELPER documented as of this encounter Care Teams Chainstitch Binder Relationship Specialty Start Date End Date Cherelle Corcoran MD PCP - General Family Medicine 08/30/19 Mark Queen MD Consulting Physician Infectious Diseases 01/10/20 Brandie Callejas Patient Horticultural Manager 06/20/22 06/22/22 Xenia Padilla, INSPECTOR CIRCUITRY NEGATIVE [address] [place] [address] Dr Davis [address] [place] [phone] Card Hand 06/24/22 06/24/22 documented as of this encounter
--- OUTSIDE RECORDS SUMMARY | 2024-07-04 04:13 | XMS_ITS | Encounter Summary ---
Author Organization [facility] Address [address] [place] [address] Phone Care Team Providers Care Case Filler Name Role Phone Cherelle Corcoran MD Primary Care Pro vider Mark Queen MD Unavailable [phone] Reason for Visit * Reason Comments Weakness - Generalized * Auth/Cert Specialty Diagnoses / Procedures Referred By Contflex t Referred To Contact Referral ID Status Reason Start Date Expiration Date Visits Re quested Visits Authorized [id number] 1 1 Encounter Details Date Type Department Care Team (Late st Contact Info) Description 06/03/2022 2:30 PM HOGSHEAD BUILDER Home Care Visit [facility] [address] [place] [address] Hanny Cruz, ANG PT HOME VISIT Social History Tobacco Use [...] you attend chur ch or jew services? Never 09/10/2021 Do you belong to [...] slept in a penitentiary (including now)? No 09/10/2021 Comments No Sex and Gender Information Value Date Recorded Sex Assigned at Not on file Legal Sex Female 9:03 AM HOGSHEAD BUILDER Gender Identity Female 02/08/2020 6:39 PM CDT Sexual Orientation Not on file documented as of this encounter Last Filed Vital Signs Vital Sign Reading Time Taken Comments Blood Pressure 150/66 06/03/2022 3:07 PM HOGSHEAD BUILDER Pulse 74 06/03/2022 3:07 PM HOGSHEAD BUILDER Temperature 36.2 ??C (97.1 ??F) 06/03/2022 3:07 PM CS T Respiratory Rate 16 06/03/2022 3:07 PM HOGSHEAD BUILDER Oxygen Saturation 97% 06/03/2022 3:07 PM HOGSHEAD BUILDER Inhaled Oxygen Concentration - - Weight - - Height - - Body Mass Index - - documented in this encounter Miscellaneous Notes * Home Health Plan for Next Visit - Hanny Cruz PTA - 06/03/2022 3:16 PM CST Reason for today's visit to progress with gait, balance and strengthening, steps out front of home Discuss plan of care with pt , rose was in basement during P.T visit Discharge planning when appropriate Plan for next visit to perform steps out front of home pt was more fatigued, slightly lethargic during visit pt able to participate but not available range thru all exercises pt not as talkative and reports no pain in back today pt declined instruction up and down front steps HEAD BUILDER documented in this encounter Plan of Treatment Upcoming Encounters Date Type Department Care Team (Latest Contact Info) Description 07/13/2024 9:00 AM HOGSHEAD BUILDER Hospital Encounter [facility] [address] [place] [phone] Jaya Grier MD [address] [place] [phone] 07/13/2024 9:00 AM HOGSHEAD BUILDER - 07/13/2024 9:30 AM HOGSHEAD BUILDER Surgery [facility] [address] [place] [phone] Jyaa Grier MD [address] [place] [address] ESOPHAGOGASTRODUODENOSCOPY Scheduled Procedures Name Priority Associated Diagnoses Date/Ti me ESOPHAGOGASTRODUODENOSCOPY Anemia, unspecified type Gastritis without bleeding, unspecified chronicity, unspecified gastritis type 07/13/2024 9:00 AM HOGSHEAD BUILDER COLONOSCOPY Iron deficiency anemia due to [...] home health visit Disciplines: SN, PT, OT, BARTENDERS, MODEL MAKER, Skilled Disciplines Monitor patient's vital signs every [...] visit during episode of care Description: Home farm implement mechanic to measure vital signs during every home [...] gait/stair training. Problem:PT Impaired Functional Mobility/Balance Completed gait in the home over level surfaces approx 80 ft using wheeled walker cues to improve posture and step further into the walker pt also exhibits decreased hip flexion with knee flexion and heel toe gait, sob noted with gait pt declines instruction front steps Therapeutic Exercise Description: Perform therapeutic exercise, progressing as tolerated. Problem:PT Impaired Functional Mobility/Balance Completed see HEP comments Transfer training Description: Instruct patient/caregiver and perform transfer training. Problem:PT Impaired Functional Mobility/Balance Completed sit to from stand from chair, bed transfers using small step to step up and then places knee on bed and crawling into bed. did work on pt sitting on edge of bed and she is able to complete with cues lifting beds in and out on her own recommend that pt perform this way at all times Home Exercise Program (HEP) Description: Instruct patient/caregiver and perform HEP. Problem:PT Impaired Functional Mobility/Balance Completed while the pt was seated performed 15 reps of each for heel toe raises, hip abd/add, hip flexion with knee flexion, glut sets and laqs holding 3 seconds pt did not complete all exercises through available range, more lethargic today while standing depending on arms on walker performs heel toe raises, hip abd/add, hip flexion with knee flexion, x 10 reps of each leaning forward heavily on walker pt has written hep is not able to do all exercises on her own family needs further instruction Balance Training/Activities Description: Instruct patient/caregiver and perform balance training activities. Problem:PT Impaired Functional Mobility/Balance Completed while standing pt completed static balance with feet slightly apart 1 minute pt does sway increases flexion forward at neck and hips as standing then staggered stance each leg for 30 seconds leaning foward also pt unsteady gait balance without walker 3+/5 and with walker 4-/5 documented in this encounter Care Teams Case Filler Relationship Specialty Start Date End Date Cherelle Corcoran MD PCP - General Family Medicine 08/30/19 Mark Queen MD Consulting Physician Infectious Diseases 01/10/20 documented as of this encounter
--- OUTSIDE RECORDS SUMMARY | 2024-07-04 04:13 | XMS_ITS | Encounter Summary ---
Author Organization [facility] Address [address] [place] [address] Phone Care Team Providers Care Senior Graduate Advisor Name Role Phone Cherelle Corcoran MD Primary Care Pro vider Mark Queen MD Unavailable [phone] Reason for Visit * Reason Comments Weakness - Generalized * Auth/Cert Specialty Diagnoses / Procedures Referred By Contflex t Referred To Contact Referral ID Status Reason Start Date Expiration Date Visits Re quested Visits Authorized [id number] 1 1 Encounter Details Date Type Department Care Team (Late st Contact Info) Description 05/02/2022 3:00 PM FRAMING MANAGER Home Care Visit [facility] [address] [place] [address] Hanny Cruz, ANG PT HOME VISIT Social [...] you attend chur ch or muslim services? Never 09/10/2021 Do you belong to [...] on file Legal Sex Female 9:03 AM FRAMING MANAGER Gender Identity Female 02/08/2020 6:39 PM CDT Sexual Orientation Not on file documented as of this encounter Last Filed Vital Signs Vital Sign Reading Time Taken Comments Blood Pressure 150/76 05/02/2022 3:59 PM FRAMING MANAGER Pulse 72 05/02/2022 3:59 PM FRAMING MANAGER Temperature 36.2 ??C (97.1 ??F) 05/02/2022 3:59 PM CS T Respiratory Rate 16 05/02/2022 3:59 PM FRAMING MANAGER Oxygen Saturation 97% 05/02/2022 3:59 PM FRAMING MANAGER Inhaled Oxygen Concentration - - Weight - - Height - - Body Mass Index - - documented in this encounter Miscellaneous Notes * Home Health Plan for Next Visit - Hanny Cruz PTA - 05/02/2022 4:16 PM CST Reason for today's visit to progress with HEP , gait balance strengthening Discuss plan of care pt and daughter Ursula Discharge planning when appropriate Plan for next visit to progress with standing balance and strengthneing pt denies any falls pt using lidocaine patch 5% Rx [id number] apply one patch to the painful area once every day and leave on for 12 hrs then off for 12 hrs 04/05 Dr. Cherelle Lee update to primer charger ING MANAGER documented in this encounter Plan of Treatment Upcoming Encounters Date Type Department Care Team (Latest Contact Info) Description 07/13/2024 9:00 AM FRAMING MANAGER Hospital Encounter [facility] [address] [place] [id number] Jaya Grier MD [facility] [address] 07/13/2024 9:00 AM FRAMING MANAGER - 07/13/2024 9:30 AM FRAMING MANAGER Surgery [facility] [address] [place] [address] Jaya Grier MD [address] [place] [address] ESOPHAGOGASTRODUODENOSCOPY Scheduled Procedures Name Priority Associated Diagnoses Date/Ti me ESOPHAGOGASTRODUODENOSCOPY Anemia, unspecified type Gastritis without bleeding, unspecified chronicity, unspecified gastritis type 07/13/2024 9:00 AM FRAMING MANAGER COLONOSCOPY Iron deficiency anemia due to [...] home health visit Disciplines: SN, PT, OT, CRYPTOLOGIC TECHNICIAN, JAWBONE PULLER, Skilled Disciplines Monitor patient's vital signs every home health visit. 04/17/2022 Active 1 goal linked to scheduled/documen bruno intervention 1 goal intervention scheduled/documen bruno in this visit Safety concerns Disciplines: Skilled Disciplines Alteration in safety 04/17/2022 Active 1 goal linked to scheduled/documen bruno intervention 2 goal interventions scheduled/documen bruno in this visit PT Medication Management Disciplines: Physical Therapy PT Medication Management 04/17/2022 Active - 1 problem intervention scheduled/documen bruno [...] visit during episode of care Description: Home logistics planning manager to measure vital signs during every home [...] concerns Goal:Demonstrate use of safety precautions Completed pt instructed to use the wheeled walker at all times recommend supervision at all times Assess safety Description: Assess patient safety Problem:Safety concerns Goal:Demonstrate use of safety precautions Completed Pain medication Instruction Description: Instruct patient/caregiver in high risk pain medications including common side effects, prescribed dosing schedule and contacting physician with questions or concerns. Problem:PT Medication Management Completed pt takes acetaminophen and has lidoderm patches Gait/Stair Training Description: Instruct patient/caregiver and perform gait/stair training. Problem:PT Impaired Functional Mobility/Balance Completed gait with wheeled walker in the home over level surfaces with CGA asst for approx 80 ft pt leans forward on walker and also has forward neck flexion decreased stridelength and stepheight pt reports pain 5/10 with gait some sob noted Therapeutic Exercise Description: Perform therapeutic exercise, progressing as tolerated. Problem:PT Impaired Functional Mobility/Balance Completed see HEP comments Transfer training Description: Instruct patient/caregiver and perform transfer training. Problem:PT Impaired Functional Mobility/Balance Completed sit to from stand with cues to scoot forward in chair and to push up with arms and then reach back for chair when sitting pt has tendency to reach for walker and pull up supine to from sit transfers pt steps on small stool and crawls into bed then has difficulty rolling to her back pt will need further instruction with bed mobility and sit to from supine transfers Home Exercise Program (HEP) Description: Instruct patient/caregiver and perform HEP. Problem:PT Impaired Functional Mobility/Balance Completed while the pt is supine instructed pt on performing anklepumping, quad sets and saqs holding each for 3 seconds, heelslides, hip abd/add and slr with cues to engage quad before completing, then bridging x 10 reps of each while seated pt performed gentle AROM for cervical rotation right /left and flexion extension x 5 reps of each and today added 5 shoulder shrugs pt needs further instruction before able to do on her own Balance Training/Activities Description: Instruct patient/caregiver and perform balance training activities. Problem:PT Impaired Functional Mobility/Balance Completed instructed pt on standing static balance and pt was able to tolerate for 1 minute 30 seconds pt was cued on improving posture and to turn head from side to side as standing cues also to pull hips forward gait balance with wheeled walker 4-/5 documented in this encounter Care Teams Senior Graduate Advisor Relationship Specialty Start Date End Date Cherelle Corcoran MD PCP - General Family Medicine 08/30/19 Mark Queen MD Consulting Physician Infectious Diseases 01/10/20 documented as of this encounter
--- OUTSIDE RECORDS SUMMARY | 2024-07-04 04:13 | XMS_ITS | Encounter Summary ---
Author Organization [facility] Healthcare Address [address] [place] [address] Care Team Providers Care Ticket Dispatcher Name Role Phone Cherelle Corcoran MD Primary Care Pro vider Mark Queen MD Unavailable [phone] Reason for Visit * Reason Comments Fall Encounter Details Date Type Department Care Team (Late st Contact Info) Description 05/08/2022 8:36 PM HOPPER FEEDER - 05/09/2022 2:26 AM HOPPER FEEDER Emergency [facility] Emergency Department [address] [place] [address] Shane Cheatham MD [address] [facility] [address] [place] [address] Fall, initial encounter (Primary Dx); History of diabetes mellitus, type II; History of chronic kidney disease; History of Parkinson's disease; History of schizophrenia Discharge Disposition: Discharge to home or self [...] you attend chur ch or advent services? Never 09/10/2021 Do you belong to [...] on file Legal Sex Female 9:03 AM HOPPER FEEDER Gender Identity Female 02/08/2020 6:39 PM CDT Sexual Orientation Not on file documented as of this encounter Last Filed Vital Signs Vital Sign Reading Time Taken Comments Blood Pressure 163/59 05/08/2022 10:50 PM HOPPER FEEDER Pulse 84 05/09/2022 12:29 AM HOPPER FEEDER Temperature 35.8 ??C (96.5 ??F) 05/08/2022 2:09 PM CS T Respiratory Rate 18 05/08/2022 10:50 PM HOPPER FEEDER Oxygen Saturation 99% 05/09/2022 12:29 AM HOPPER FEEDER Inhaled Oxygen Concentration - - Weight - - Height - - Body Mass Index - - documented in this encounter Discharge Instructions * Discharge Instructions* Edwardo Vasquez MD - 05/09/2022 1:45 AM HOPPER FEEDER Your seen today for a fall. Workup we obtained ruled out injury due to trauma from the fall. The urine analysis showed that you have a urinary tract infection. We are prescribing you an antibiotic totreat this. The antibiotic is called Keflex or cephalexin. You will take 1 capsule of this medication 4 times daily. Space these 4 doses out as evenly as possible throughout the day. For example, take 1 capsule at breakfast lunch and dinner and the 4th right before bed. ER FEEDER documented in this encounter Medications at Time of Discharge cephalexin (KEFLEX) 500 mg capsule Take 1 capsule (500 mg total) by mouth 4 (four) times a day for 7 days 28 capsule 05/09/2022 2 acetaminophen (TYLENOL) 325 mg tablet Take 2 [...] mouth every 12 (twelve) hours 180 tablet 02/03/2022 2 atorvastatin (LIPITOR) 20 mg tabletIndications: Hyperlipidemia associated with type 2 diabetes mellitus (HCC) Take 1 tablet (20 mg total) by mouth daily 90 tablet 3 02/19/2022 2 BD Arlyn 2nd Gen Pen Needle 32 gauge x needleIndications: Type 2 diabetes mellitus with diabetic neuropathy, with long-term current use of insulin ([facility]) USE TO INJECT BASAGLAR EVERY NIGHT [...] possible 2 each 1 05/28/2021 4 dulaglutide (Trulicity) 0.75 mg/0.5 mL pen injectorIndication s:Type 2 diabetes mellitus with diabetic neuropathy, with long-term current use of insulin ([facility]) Inject 0.5 mL (0.75 mg total) under the skin once a week 6 mL 1 01/28/2022 2 famotidine (PEPCID) 10 mg tabletIndications: Gastroesophageal reflux disease, unspecified whether esophagitis present Take 1 tablet (10 mg total) by mouth nightly 90 tablet 02/13/2022 3 ferrous sulfate 325 mg (65 mg of elemental iron) tabletIndications: Iron Deficiency Anemia Take 1 tablet (325 mg total) by mouth daily with breakfast 90 tablet 1 01/09/2022 3 flash glucose scanning reader (FreeStyle Madhav 2 [place]) miscIndications:Ty pe 2 diabetes mellitus with diabetic neuropathy, with long-term current use of insulin ([facility]) Use to continually monitor glucose 1 each 10/01/2021 3 flash glucose sensor (FreeStyle Madhav 2 Sensor) kitIndications:Typ e 2 diabetes mellitus with diabetic neuropathy, with long-term current use of insulin ([facility]) Use to continually monitor glucose, change every 14 days 6 kit 3 10/01/2021 3 furosemide (LASIX) 40 mg tablet Take 1 tablet (40 mg total) by mouth 2 (two) times a day 60 tablet 11 10/16/2021 3 insulin glargine (LANTUS, SEMGLEE) 100 unit/mL vial for injectionIndicatio ns:Diabetes Mellitus Inject 25 Units under the skin nightly 7.5 mL 11 09/18/2021 2 insulin lispro (HumaLOG, ADMELOG) 100 unit/mL pen [...] hours then off for 12 hours. Rx# [id number] in home 05/02/22 per Hanny Cruz PTA [...] total) by mouth nightly 30 capsule 2 04/16/2022 2 risperiDONE (RisperDAL) 2 mg tablet Take [...] 02/12/2022 3 documented as of this encounter Ordered Prescriptions Prescription Sig Dispense Quantity Refills Last Filled Start Date End Date cephalexin (KEFLEX) 500 mg capsule Take 1 capsule (500 mg total) by mouth 4 (four) times a day for 7 days 28 capsule 05/09/2022 2 documented in this encounter Discharge Disposition Disposition Code Departure Means Destination Discharge to home or self care documented in this encounter ED Notes * Mauricio Elias MD - 05/08/2022 8:58 PM CST HPI Chief Complaint Patient presents with ??? Fall Barbara Chakraborty is a 71yo F PMH of DM2, schizophrenia, CKD3, dementia here with 1 week generalized weakness and falls. Patient's daughter at bedside helping to supply collateral information. Patient hasbeen having multiple ground level falls after getting up from bed, denies current pain, LOW, currentconfusion. Patient is A&Ox3 but some confusion, is unreliable historian. Daughter lives with her and has witnessed most of these recent falls. Per daughter, she has hx of UTI last year with similar weakness symptoms but currently denies dysuria or other urinary concerns. Also endorsing a month of tremor, worsening auditory hallucinations. Patient was on risperidone, switched to haldol but later discontinued due to EPS. Restarted on risperidone but concerned it is not adequately treating herschizophrenia. Denies worsening confusion worse than baseline, no CP, SOA, other acute pain. Patient History: Patient Active Problem List Diagnosis Date Noted ??? Pulmonary nodule 11/16/2021 ??? Physical deconditioning 11/15/2021 ??? Left leg DVT ([facility]) ([facility]) 11/15/2021 ??? Pressure ulcer 10/07/2021 ??? Anemia 09/07/2021 ??? Volume overload 09/06/2021 ??? Late onset Alzheimer's dementia without behavioral disturbance (HCC) 08/19/2021 ??? Delirium 08/07/2021 ??? Acute renal failure superimposed on stage 4 chronic kidney disease ([facility]) ([facility]) 08/07/2021 ??? Encounter for Medicare annual wellness exam 01/08/2021 ??? Stage 3b chronic kidney disease ([facility]) 12/11/2020 ??? Dementia ([facility]) 10/10/2020 ??? Encounter for psychiatric assessment 10/10/2020 ??? Schizoaffective disorder, bipolar type ([facility]) ([facility]) 10/10/2020 ??? Hyperlipidemia associated with type 2 diabetes mellitus ([facility]) 04/03/2020 ??? Iron deficiency anemia 04/02/2020 ??? GERD (gastroesophageal reflux disease) 04/02/2020 ??? Amputation of toe of right foot ([facility]) ([facility]) 01/19/2020 ??? Hypertension associated with diabetes ([facility]) 12/13/2019 ??? Schizoaffective disorder, bipolar type ([facility]) ([facility]) 08/30/2019 ??? Type 2 diabetes mellitus with diabetic neuropathy, with long-term current use of insulin ([facility]) ([facility]) 08/30/2019 ??? Diabetic neuropathy (HCC) Past Medical History: Diagnosis Date ??? Arthritis ??? Depression ??? Diabetic neuropathy (HCC) ??? Hyperlipidemia ??? Hypertension ??? Schizophrenia (HCC) ??? Type 2 diabetes mellitus (HCC) Past Surgical History: Procedure Laterality Date ??? SECTION Right right foot ??? TOE AMPUTATION Right 01/06/2020 4th toe amp/ foot debridement/ Dr. Anat Pelayo Family History Problem Relation Age of Onset ??? Stomach cancer Father Social History Tobacco Use ??? Smoking status: Never ??? Smokeless tobacco: Never Substance and Sexual Activity ??? Alcohol use: Not Currently ??? Drug use: Never ??? Sexual activity: Defer Social History Social History Narrative Originally From [place] Grew up with her mom and dad. [...] for dysuria and hematuria. Musculoskeletal: Negative for arthralgias, back pain, gait problem and joint swelling. Skin: Negative for color change and rash. Neurological: Positive for tremors and weakness. Negative for seizures, syncope and headaches. Psychiatric/Behavioral: Positive for hallucinations. Negative for confusion. All other systems reviewed and are negative. Physical Exam ED Triage Vitals Temp Pulse Resp BP SpO2 05/08/22 1409 05/08/22 1407 05/08/22 1407 05/08/22 1407 05/08/22 1407 (!) 35.8 ??C (96.5 ??F) 76 16 130/66 95 % Temp src Heart Rate Source Patient Position BP Location FiO2 (%) 05/08/22 1409 -- -- -- -- Temporal Height Height Method Weight Weight Method -- -- -- -- Physical Exam Vitals and nursing note reviewed. Constitutional: General: She is not in acute distress. Appearance: She is well-developed. HENT: Head: Normocephalic and atraumatic. Mouth/Throat: Mouth: Mucous membranes are moist. Eyes: Extraocular Movements: Extraocular movements intact. Conjunctiva/sclera: [...] No sensory deficit. Motor: No weakness. Psychiatric: Mood and Affect: Mood normal. MDM Medical Decision Making Differential Diagnosis or Management Options: 71yo F PMH of DM2, schizophrenia, CKD3, dementia herewith 1 week generalized weakness and falls. Patient denies current pain, recent head trauma, no tenderness to palpation and equal strength in all 4 extremities. Plan for basic labs, CT head/c-spine from triage with no acute abnormalities, obtain UA. If workup negative daughter who is geotechnicial properties technician is comfortable with discharge home with outpatient psych followup Attending Summary of Care ED Course as of 05/09/22 0210 Time: 05/08 2056 Comment: IMPRESSION: No acute intracranial abnormality. By: Mauricio Elias MD Time: 05/08 2058 Value: Creatinine(!): 2.44 Comment: (Reviewed) By: Mauricio Elias MD Time: 05/08 2307 Comment: Sign out: 71 yo F who presents with generalized weakness; no c/o head trauma. Work up for UTI currently. H/o previously elevated Cr up to 2.5. Family leaning towards d/c By: Kim Mercado MD Time: 05/08 2346 Comment: Pending UA, likely d/c By: Kim Mercado MD Time: 05/09 206 Value: Urinalysis, microscopic only(!): WBC, ur >50(!) RBC, ur 3-5(!) Epithelial cells, squamous, ur 1-5 Bacteria, ur Trace(!) Mucous, ur Present(!) Culture Reflex Comment Reflex to urine culture will be performed. Comment: (Reviewed) By: Edwardo Vasquez MD Time: 05/09 207 Comment: We will treat patient for UTI with Keflex 500 mg q.i.d.. Discussed the dosing and timing with patient. They expressed understanding and agreement with the plan. Will discharge patient to home under the care of her daughter. By: Edwardo Vasquez MD No diagnosis found. Mauricio Elias MD Resident 05/08/22 1233 Cosigned by Shane Cheatham MD at 05/09/2022 11:57 AM HOPPER FEEDER ER FEEDER ER FEEDER Associated attestation - Shane Cheatham MD - 05/09/2022 11:57 AM HOPPER FEEDER I have seen and examined the patient on 05/08/2022. I agree with the findings and plan of care as documented in the resident's note. ED Course as of 05/09/22 1157 Time: 05/08 2056 Comment: IMPRESSION: No acute intracranial abnormality. By: Mauricio Elias MD Time: 05/08 2058 Value: Creatinine(!): 2.44 Comment: (Reviewed) By: Mauricio Elias MD Time: 05/08 2307 Comment: Sign out: 71 yo F who presents with generalized weakness; no c/o head trauma. Work up for UTI currently. H/o previously elevated Cr up to 2.5. Family leaning towards d/c By: Kim Mercado MD Time: 05/08 2346 Comment: Pending UA, likely d/c By: Kim Mercado MD Time: 05/09 206 Value: Urinalysis, microscopic only(!): WBC, ur >50(!) RBC, ur 3-5(!) Epithelial cells, squamous, ur 1-5 Bacteria, ur Trace(!) Mucous, ur Present(!) Culture Reflex Comment Reflex to urine culture will be performed. Comment: (Reviewed) By: Edwardo Vasquez MD Time: 05/09 207 Comment: We will treat patient for UTI with Keflex 500 mg q.i.d.. Discussed the dosing and timing with patient. They expressed understanding and agreement with the plan. Will discharge patient to home under the care of her daughter. By: Edwardo Vasquez MD 1. Fall, initial encounter 2. History of diabetes mellitus, type II 3. History of chronic kidney disease 4. History of Parkinson's disease 5. History of schizophrenia * Mao Hendricks RN - 05/08/2022 8:36 PM CST Bed: ED1-09 Expected date: Expected time: Means of arrival: Car Comments: Mao Hendricks RN 05/08/222035 ER FEEDER * Sarah Burks RN - 05/08/2022 2:03 PM CST Patient to ED due to falling twice today. Patient denies hitting head and LOC, +blood thinners. Patient's daughter states this happened a couple weeks ago and she was hospitalized with a UTI. Patient's daughter states she is more lethargic, increased coughing ans SOB. ER FEEDER documented in this encounter Miscellaneous Notes * ED Re-evaluation Note - Edwardo Vasquez MD - 05/08/2022 10:57 PM HOPPER FEEDER ED Re-evaluation TRANSITION OF CARE: I, Edwardo Vasquez MD, am taking signout from Dr. Elias (Resident) under supervision of Dr. Mercado (Attending). I have reviewed all pertinent vital signs, allergies, and history available in the chart. Summary: 71 y.o. female Multiple GLFs d/t weakness. Had previous weakness symptoms but currently denies urinary symptoms. Patient has had worsening tremor and auditory hallucinations that last month after switching from risperdone to haldol and then back. SCr elevated but at patients baseline. Pending: Straight cath and UA Dispo: Likely d/c pending normal workup ED Course as of 05/09/22 0723 Time: 05/08 2056 Comment: IMPRESSION: No acute intracranial abnormality. By: Mauricio Elias MD Time: 05/08 2058 Value: Creatinine(!): 2.44 Comment: (Reviewed) By: Mauricio Elias MD Time: 05/08 2307 Comment: Sign out: 71 yo F who presents with generalized weakness; no c/o head trauma. Work up for UTI currently. H/o previously elevated Cr up to 2.5. Family leaning towards d/c By: Kim Mercado MD Time: 05/08 2346 Comment: Pending UA, likely d/c By: Kim Mercado MD Time: 05/09 206 Value: Urinalysis, microscopic only(!): WBC, ur >50(!) RBC, ur 3-5(!) Epithelial cells, squamous, ur 1-5 Bacteria, ur Trace(!) Mucous, ur Present(!) Culture Reflex Comment Reflex to urine culture will be performed. Comment: (Reviewed) By: Edwardo Vasquez MD Time: 05/09 207 Comment: We will treat patient for UTI with Keflex 500 mg q.i.d.. Discussed the dosing and timing with patient. They expressed understanding and agreement with the plan. Will discharge patient to home under the care of her daughter. By: Edwardo Vasquez MD Wilbur, Ryan Richard, MD Resident 05/09/22 0723 ER FEEDER * ED Triage Provider Note - Destin Edmondson MD - 05/08/2022 7:39 PM HOPPER FEEDER Triage Provider Summary: Informed by triage nurse patient presents with daughter falling x2 today confused history of anticoagulation. Previously admitted urinary tract infection with confusion. Willorder CT head and C-spine based on Mec of injury and risk of bleeding as well as screening labs ER FEEDER * ED Procedure Note - Clement Cavanaugh MD - 05/08/2022 3:06 PM HOPPER FEEDER Associated Order(s): ECG 12 lead Procedure ECG 12 lead Date/Time: 05/08/2022 3:06 PM Performed by: Clement Cavanaugh MD Authorized by: John Lorenzo MD Rate: ECG rate: 72 ECG rate assessment: normal Rhythm: Rhythm: sinus rhythm Ectopy: Ectopy: none QRS: QRS axis: Normal QRS intervals: Normal Conduction: Conduction: normal ST segments: ST segments: Normal T waves: T waves: flattening Previous ECG: Previous ECG: Compared to current Date of previous EC11/15/2021 Similarity: No change Interpretation: Interpretation: No significant change Clement Cavanaugh MD 05/08/22 1506 ER FEEDER documented in this encounter Plan of Treatment Upcoming Encounters Date Type Department Care Team (Latest Contact Info) Description 07/13/2024 9:00 AM HOPPER FEEDER Hospital Encounter [facility] [address] [place] [address] Jaya Grier MD [facility] [address] [place] [id number] 07/13/2024 9:00 AM HOPPER FEEDER - 07/13/2024 9:30 AM HOPPER FEEDER Surgery [facility] [address] [place] [address] Jaya Grier MD [address] [facility] [address] [place] [id number] ESOPHAGOGASTRODUODENOSCOPY Scheduled Procedures Name Priority Associated Diagnoses Date/Ti ak ESOPHAGOGASTRODUODENOSCOPY Anemia, unspecified type Gastritis without bleeding, unspecified chronicity, unspecified gastritis type 07/13/2024 9:00 AM HOPPER FEEDER COLONOSCOPY Iron deficiency anemia due to chronic blood loss documented as of this encounter Procedures Procedure Name Priority Date/Time Associated Diagnosis Comments URINALYSIS AND REFLEX TO MICROSCOPIC AND CULTURE STAT 05/09/2022 12:24 AM HOPPER FEEDER URINALYSIS, MICROSCOPIC ONLY STAT 05/09/2022 12:24 AM HOPPER FEEDER URINE CULTURE STAT 05/09/2022 12:24 AM HOPPER FEEDER POCT GLUCOSE DEVICE Routine 05/08/2022 1 1:[address] HEAD AND CERVICAL SPINE WO CONTRAST ED 05/08/2022 8:21 PM HOPPER FEEDER ECG 12-LEAD STAT 05/08/2022 3:06 PM HOPPER FEEDER INFLUENZA A/B, RSV, AND COVID-19 PCR Routine 05/08/2022 2:49 PM HOPPER FEEDER EGFR STAT 05/08/2022 2:49 PM HOPPER FEEDER DIFFERENTIAL AUTO STAT 05/08/2022 2:4 9 PM HOPPER FEEDER CBC WITH AUTO DIFFERENTIAL STAT 05/08/2022 2:49 PM HOPPER FEEDER COMPREHENSIVE METABOLIC PANEL STAT 05/08/2022 2:49 PM HOPPER FEEDER POCT GLUCOSE DEVICE Routine 05/08/2022 2 :09 PM HOPPER FEEDER documented in this encounter Results * Urine culture Urine (05/09/2022 12:24 AM HOPPER FEEDER) Report Final Report: No growth [facility] Urine 05/09/2022 12:2 4 AM HOPPER FEEDER 05/09/2022 1:10 AM HOPPER FEEDER Narrative [facility] - 05/10/2022 7:18 AM HOPPER FEEDER Urine culture reflexed based upon urinalysis results. Testing performed by [facility] ([phone]) [facility] MICROBIOLOGY - GEN ERAL ORDERABLES Final Result Performing Organization Address [facility] de Phone Number [facility] [place] [address] * (ABNORMAL) Urinalysis, microscopic only (05/09/2022 12:24 AM HOPPER FEEDER) WBC, ur >50(A) 0 - 5 /HPF [facility] RBC, ur 3-5(A) 0 - 2 /HPF [facility] Epithelial cells, squamous, ur 1-5 0 - 5 /HPF [facility] Bacteria, ur Trace(A) [facility] Mucous, ur Present(A) [facility] Culture Reflex Comment Reflex to urine culture will be performed. [facility] Urine 05/09/2022 12:2 4 AM HOPPER FEEDER 05/09/2022 12:38 AM HOPPER FEEDER [facility] URINE ORDERABLES F inal Result Performing Organization Address [facility] de Phone Number [facility] Department [place] [address] * (ABNORMAL) Urinalysis reflex to microscopic and culture Urine (05/09/2022 12:24 AM HOPPER FEEDER) Color, ur Straw Yellow [facility] Clarity, ur Clear Clear [facility] Specific gravity, ur 1.013 1.003 - 1.030 [facility] pH, urine 6.0 [facility] Protein, ur ql 2+(A) Negative [facility] Glucose, ur ql 1+(A) Negative [facility] Ketones, ur Negative Negative [facility] Bilirubin, ur Negative Negative [facility] Blood, ur Trace(A) Negative [facility] Urobilinogen, ur <2.0 <2.0 mg/dL [facility] Nitrite, ur Negative Negative [facility] Leukocyte esterase, ur 2+(A) Negative [facility] UA reflex comment Reflex to microscopic UA will be performed. [facility] Urine 05/09/2022 12:2 4 AM HOPPER FEEDER 05/09/2022 12:38 AM HOPPER FEEDER Narrative [facility] 05/09/2022 12:45 AM HOPPER FEEDER ?? Urine pH is affected by diet, medications, systemic acid-base disturbances, and renal tubular function. ??pH may affect urinary stone formation. ??For example, urine pH below 6.0 may help reduce the tendency for calcium phosphate stones and pH greater than 6.0 may reduce the tendency for uric acid stone formation. Source: [facility] [employer]. Last revised 07-02-2017 [facility] MICROBIOLOGY - GEN ERAL ORDERABLES Final Result Performing Organization Address City/[facility]/ZIP Co de Phone Number [facility] Department [place] [address] * (ABNORMAL) POCT glucose (05/08/2022 11:21 PM HOPPER FEEDER) [facility] Signature Glucose, POC 236(H) 70 - 199 mg/dL [facility] Blood 05/08/2022 11:2 1 PM HOPPER FEEDER 05/08/2022 11:21 PM HOPPER FEEDER Shane Cheatham MD LAB POCT ORDERABLES - DEVICE Final Result Performing Organization Address [facility] Co de Phone Number [facility] Department [place] [address] * CT Head and Cervical Spine WO Contrast (05/08/2022 8:21 PM HOPPER FEEDER) Anatomical Region Laterality Modality Head and Neck N/A Computed Tomogra phy 05/08/2022 8:49 PM HOPPER FEEDER Impressions 05/09/2022 4:37 AM HOPPER FEEDER No acute intracranial abnormality. No acute fracture in the cervical spine. Dictated by: Cesar Ruiz M.D. The radiology attending physician has personally reviewed this study, and had reviewed and/or edited this written report and agrees with it. Electronically signed by: Keyon Morgan M.D. Narrative 05/09/2022 4:37 AM HOPPER FEEDER EXAMINATION: Noncontrast head CT CT of the cervical spine without contrast HISTORY: Fall on anticoagulation.. TECHNIQUE: Noncontrast CT of the brain was performed with images acquired from skull base to vertex. Computed tomography of the cervical spine was performed without contrast according to standard protocol. COMPARISON: None available. FINDINGS: No acute intracranial hemorrhage. No evidence of mass effect or midline shift. Ventricles are normal in size and morphology. Minimal periventricular hypoattenuation is noted, nonspecific, but likely sequela of chronic small vessel ischemic changes. Bustamante-white differentiation is normal. Paranasal sinuses are normal. Mastoid air cells are normal. Visualized portions of the orbits are normal. No acute cranial fracture. No acute overlying soft tissue injury. Reversal of the usual cervical lordosis. Severe multilevel degenerative changes of the cervical spine, with multilevel disc height loss. There is up to moderate-severe degenerative neuroforaminal and canal narrowing. No acute cervical spine fracture. Craniocervical junction is normal. The imaged cervical and upper thoracic soft tissues are normal. Lung apices are normal. Procedure Note Keyon Morgan MD - 05/09/2022 EXAMINATION: Noncontrast head CT CT of the cervical spine without contrast HISTORY: Fall on anticoagulation.. TECHNIQUE: Noncontrast CT of the brain was performed with images acquired from skull base to vertex. Computed tomography of the cervical spine was performed without contrast according to standard protocol. COMPARISON: None available. FINDINGS: No acute intracranial hemorrhage. No evidence of mass effect or midline shift. Ventricles are normal in size and morphology. Minimal periventricular hypoattenuation is noted, nonspecific, but likely sequela of chronic small vessel ischemic changes. Bustamante-white differentiation is normal. Paranasal sinuses are normal. Mastoid air cells are normal. Visualized portions of the orbits are normal. No acute cranial fracture. No acute overlying soft tissue injury. Reversal of the usual cervical lordosis. Severe multilevel degenerative changes of the cervical spine, with multilevel disc height loss. There is up to moderate-severe degenerative neuroforaminal and canal narrowing. No acute cervical spine fracture. Craniocervical junction is normal. The imaged cervical and upper thoracic soft tissues are normal. Lung apices are normal. IMPRESSION: No acute intracranial abnormality. No acute fracture in the cervical spine. Dictated by: Cesar Jules-Flewelling, M.D. The radiology attending physician has personally reviewed this study, and had reviewed and/or edited this written report and agrees with it. Electronically signed by: Keyon Morgan M.D. Destin Edmondson MD IMG CT PROCEDURES Final Resul t * ECG 12-LEAD (05/08/2022 3:06 PM HOPPER FEEDER) Narrative [facility] - 05/08/2022 3:06 PM HOPPER FEEDER Clement Cavanaugh MD ? 05/08/2022 ??3:06 PM ECG 12 lead Date/Time: 05/08/2022 3:06 PM Performed by: Clement Cavanaugh MD Authorized by: John Lorenzo MD Rate: ??ECG rate: ??72 ??ECG rate assessment: normal ?? Rhythm: ??Rhythm: sinus rhythm ?? Ectopy: ??Ectopy: none ?? QRS: ??QRS axis: ??Normal ??QRS intervals: ??Normal Conduction: ??Conduction: normal ?? ST segments: ??ST segments: ??Normal T waves: ??T waves: flattening ?? Previous ECG: ??Previous ECG: ??Compared to current ??Date of previous ECG: ??11/15/2021 ??Similarity: ??No change Interpretation: ??Interpretation: No significant change ?? Procedure Note Clement Cavanaugh MD - 05/08/2022 3:06 PM CST Procedure ECG 12 lead Date/Time: 05/08/2022 3:06 PM Performed by: Clement Cavanaugh MD Authorized by: John Lorenzo MD Rate: ECG rate: 72 ECG rate assessment: normal Rhythm: Rhythm: sinus rhythm Ectopy: Ectopy: none QRS: QRS axis: Normal QRS intervals: Normal Conduction: Conduction: normal ST segments: ST segments: Normal T waves: T waves: flattening Previous ECG: Previous ECG: Compared to current Date of previous EC11/15/2021 Similarity: No change Interpretation: Interpretation: No significant change Clement Cavanaugh MD 05/08/22 1506 us John Lorenzo MD ECG ORDERABLES Final Re sult [facility] * (ABNORMAL) eGFR (05/08/2022 2:49 PM HOPPER FEEDER) Pathologist [facility] eGFR 21(L) 90 - 130 mL/min/1. 73 m2 [facility] Comment: Interpretive Data Reference Interval Normal [...] interpretive data was last reviewed 2021. Blood 05/08/2022 2:49 PM HOPPER FEEDER 05/08/2022 3:14 PM HOPPER FEEDER [facility] BLOOD ORDERABLES F inal Result [facility] Department [place] [address] * (ABNORMAL) Differential, auto (05/08/2022 2:49 PM HOPPER FEEDER) Neutrophil abs 6.8(H) 1.7 - 6.5 K/cumm [facility] Imm gran abs 0.0 0.0 - 0.1 K/cumm [facility] Lymphocyte abs 2.9 0.8 - 3.3 K/cumm [facility] Monocyte abs 0.7 0.2 - 0.8 K/cumm [facility] Eosinophil abs 0.2 0.0 - 0.5 K/cumm [facility] Basophil abs 0.0 0.0 - 0.1 K/cumm [facility] Neutrophil pct 64.1 % [facility] Comment: Interpretive Data Percent cell count reference ranges are not reported, since discordance with absolute values may lead to misinterpretation of CBC data. Current Interpretive Data was last revised on 2017. Imm gran pct 0.4 % [facility] Comment: Interpretive Data Percent cell count reference ranges are not reported, since discordance with absolute values may lead to misinterpretation of CBC data. Current Interpretive Data was last revised on 2017. Lymphocyte pct 27.1 % [facility] Comment: Interpretive Data Percent cell count reference ranges are not reported, since discordance with absolute values may lead to misinterpretation of CBC data. Current Interpretive Data was last revised on 2017. Monocyte pct 6.3 % [facility] Comment: Interpretive Data Percent cell count reference ranges are not reported, since discordance with absolute values may lead to misinterpretation of CBC data. Current Interpretive Data was last revised on 2017. Eosinophil pct 1.8 % [facility] Comment: Interpretive Data Percent cell count reference ranges are not reported, since discordance with absolute values may lead to misinterpretation of CBC data. Current Interpretive Data was last revised on 2017. Basophil pct 0.3 % [facility] Comment: Interpretive Data Percent cell count reference ranges are not reported, since discordance with absolute values may lead to misinterpretation of CBC data. Current Interpretive Data was last revised on 2017. Blood 05/08/2022 2:49 PM HOPPER FEEDER 05/08/2022 3:14 PM HOPPER FEEDER [facility] BLOOD ORDERABLES F inal Result [facility] Department [place] [address] * (ABNORMAL) Comprehensive metabolic panel (05/08/2022 2:49 PM HOPPER FEEDER) Sodium 144 135 - 145 mmol/L [facility] Potassium, pl 4.3 3.3 - 4.9 mmol/L [facility] Chloride 106 97 - 110 mmol/L [facility] CO2 28 22 - 32 mmol/L [facility] Anion gap 10 2 - 15 mmol/L [facility] BUN 48(H) 8 - 25 mg/dL [facility] Creatinine 2.44(H) 0.60 - 1.10 mg/dL [facility] Glucose 120 70 - 199 mg/dL [facility] Comment: Interpretive Data Fasting glucose [...] Current interpretive data was last revised 2017. Calcium 10.0 8.5 - 10.3 mg/dL [facility] Bilirubin, total 0.2 0.1 - 1.2 mg/dL [facility] Protein, pl 7.5 6.5 - 8.5 g/dL [facility] Albumin 3.6 3.5 - 5.0 g/dL [facility] Alk phos 129 40 - 130 Units/L [facility] ALT 26 7 - 45 Units/L [facility] AST 23 10 - 45 Units/L [facility] Blood 05/08/2022 2:49 PM HOPPER FEEDER 05/08/2022 3:14 PM HOPPER FEEDER us [facility] BLO[facility] ORDERABLES F inal Result Performing Organization Address City/[facility]/ZIP Co de Phone Number [facility] Department [place] [address] * (ABNORMAL) CBC with auto differential (05/08/2022 2:49 PM HOPPER FEEDER) [facility] WBC 10.7(H) 3.8 - 9.9 K/cumm [facility] Hgb 9.1(L) 11.9 - 15.5 g/dL [facility] Hct 29.2(L) 35.6 - 45.5 % [facility] Plt 330 150 - 400 K/cumm [facility] MPV 10.8 9.1 - 12.3 fL [facility] RBC 3.07(L) 3.90 - 5.20 M/cumm [facility] MCV 95.1 81.3 - 96.4 fL [facility] MCH 29.6 27.1 - 33.3 pg [facility] MCHC 31.2(L) 32.3 - 35.7 g/dL [facility] RDW CV 15.6(H) 11.1 - 14.9 % [facility] RDW SD 53.6(H) 35.7 - 48.1 fL [facility] NRBC abs 0.00 0.00 - 0.01 K/cumm [facility] Blood 05/08/2022 2:49 PM HOPPER FEEDER 05/08/2022 3:14 PM HOPPER FEEDER [facility] BLOOD ORDERABLES F inal Result [facility] Department [place] [address] * Influenza A/B, RSV, and COVID-19 PCR Nasopharyngeal (05/08/2022 2:49 PM HOPPER FEEDER) [facility] COVID-19 RNA Negative Negative [facility] Influenza A RNA Negative Negative [facility] Influenza B RNA Negative Negative [facility] RSV RNA Negative Negative [facility] Comment: Interpretive data: Testing performed by [facility] ([phone]). This test is performed using the [employer]any Xpert Xpress CoV-2/Flu/RSV plus assay. This is a multiplex, real-time reverse transcriptase PCR assay intended for the qualitative detection of nucleic acid from SARS-CoV-2, influenza A, influenza B, and respiratory syncytial virus. This assay has been reviewed by the FDA for Emergency Use Authorization (EUA). The performance characteristics have been verified by the [facility]. Results must be considered in the clinical context, and a negative result does not rule out infection. Interpretive Data last revised 2021. Nasopharyngeal 05/08/2022 2: 49 PM HOPPER FEEDER 05/08/2022 3:28 PM HOPPER FEEDER Narrative [facility] - 05/08/2022 4:25 PM HOPPER FEEDER Is the Patient experiencing symptoms consistent with COVID?->Yes Date of Symptom Onset->05/05/22 Reason for testing?->Symptomatic [facility] MICROBIOLOGY - GEN ERAL ORDERABLES Final Result Performing Organization Address City/[facility]/ZIP Co de Phone Number [facility] Department [place] [address] * POCT glucose (05/08/2022 2:09 PM HOPPER FEEDER) [facility] Signature Glucose, POC 131 70 - 199 mg/dL [facility] Blood 05/08/2022 2:09 PM HOPPER FEEDER 05/08/2022 2:09 PM HOPPER FEEDER Notinfile Unknown LAB POCT ORDERABLES - DEVICE F inal Result Performing Organization Address City/[facility]/ZIP Co de Phone Number [facility] [place] [address] documented in this encounter Visit Diagnoses Diagnosis Fall, initial encounter- Primary History of diabetes mellitus, type II History of chronic kidney disease History of Parkinson's disease History of schizophrenia Personal history of schizophrenia Anemia, unspecified type Gastritis without bleeding, unspecified chronicity, unspecified gastritis type documented in this encounter Administered Medications Inactive Administered Medications - up to 3 most recent administrations Medication Order MAR Action Action Date Dose Rate Site Lactated Ringer's (LR) bolus 1,000 mL 1,000 mL, intravenous, at 1,000 mL/hr, Administer over 1 Hours, Once, On Kellie 05/08/22 at 2058, For 1 dose New Bag 05/08/2022 10:50 PM HOPPER FEEDER 1,000 mL 1000 mL/hr documented in this encounter Active and Recently Administered Medications Times are shown in HOPPER FEEDER. Scheduled Medication Order 05/07/2022 05/08/2022 05/09/2022 Lactated Ringer's (LR) bolus 1,000 mL (COMPLETED) 1,000 mL, intravenous, at 1,000 mL/hr, Administer over 1 Hours, Once, On Kellie 05/08/22 at 2058, For 1 dose 2250 (New Bag - Provider: Olivier Yoo, ALIREZA) 0022 (Stopped - Provider: Olivier Yoo RN) documented in this encounter Orders Lab Orders Without Results Count Last Ordered D ate First Ordered Date POCT GLUCOSE DEVICE 3 05/08/2022 Nursing Count Last Ordered Date First Orde red Date MISCELLANEOUS NURSING CARE ORDER (SPECIFY) 1 05/08/2022 STRAIGHT CATH 1 05/08/2022 documented in this encounter Care Teams Ticket Dispatcher Relationship Specialty Start Date End Date Cherelle Corcoran MD PCP - General Family Medicine 08/30/19 Mark Queen MD Consulting Physician Infectious Diseases 01/10/20 documented as of this encounter
--- OUTSIDE RECORDS SUMMARY | 2024-07-04 04:13 | XMS_ITS | Encounter Summary ---
Author Organization [facility] Address [address] [place] [address] Care Team Providers Care Side Gluer Name Role Phone Cherelle Corcoran MD Primary Care Pro vider Mark Queen MD Unavailable + [phone] Brandie Callejas Unavailable Unavail able Reason for Visit * Reason Onset Date Comments Medical Question/Miscellaneous 05/21/2022 U pdate/ Encounter Details Date Type Department Care Team ([facility] Contact Info) Description 05/21/2022 Telephone [facility] Primary Care [employer] [address] [place] [address] Cherelle Corcoran MD [employer] [facility] [address] [place] [address] Medical Question/Miscellaneous (Update/) Social History Tobacco Use Types Packs/Day Years [...] in a senior living (including now)? No 09/10/2021 Comments No Sex and Gender Information Value Date Recorded Sex Assigned at Not on file Legal Sex Female 9:03 AM MEDICAL ENGINEER Gender Identity Female 02/08/2020 6:39 PM CDT Sexual Orientation Not on file documented as of this encounter Miscellaneous Notes * Telephone Encounter - Darline Vences MA - 05/21/2022 11:31 AM MEDICAL ENGINEER Medical Question/Miscellaneous Caller???s Concern: Hanny saw patient today at her home and says patient fell yesterday at her home and put pain level 6 out of 10. Hanny says her pain level is not abnormal and patient says she is sore today otherwise she was moving around fine today. Patient answered the door today without her walker so Hanny is unsure if she was using the walker when she fell. Hanny says they are going over safety procedures so falls can be prevented in the future. No call back needed, fyi to provider only. Caller???s Call back #: [phone] Does message need to be routed?Yes-FYI Only CAL ENGINEER documented in this encounter Plan of Treatment Upcoming Encounters Date Type Department Care Team (Latest Contact Info) Description 07/13/2024 9:00 AM MEDICAL ENGINEER Hospital Encounter [facility] [address] [place] [id number] Jaya Grier MD [address] [facility] [address] [address] [facility] [address] [place] [address] 07/13/2024 9:00 AM MEDICAL ENGINEER - 07/13/2024 9:30 AM MEDICAL ENGINEER Surgery [facility] [address] [place] [address] Jaya Grier MD [address] [facility] [facility] [address] [place] [address] ESOPHAGOGASTRODUODENOSCOPY Scheduled Procedures Name Priority Associated Diagnoses Date/Ti ky ESOPHAGOGASTRODUODENOSCOPY Anemia, unspecified type Gastritis without bleeding, unspecified chronicity, unspecified gastritis type 07/13/2024 9:00 AM MEDICAL ENGINEER COLONOSCOPY Iron deficiency anemia due to chronic blood loss documented as of this encounter Visit Diagnoses Not on filedocumented in this encounter Additional Health Concerns Infection Onset Date Last Indicated Resolved Time COVID: Suspected 06/19/2022 06/19/2022 06/19/2022 12:37 PM MEDICAL ENGINEER documented as of this encounter Care Teams Side Gluer Relationship Specialty Start Date End Date Cherelle Corcoran MD PCP - General Family Medicine 08/30/19 Mark Queen MD Consulting Physician Infectious Diseases 01/10/20 Brandie Callejas Patient Youth Director 06/20/22 06/22/22 documented as of this encounter
--- OUTSIDE RECORDS SUMMARY | 2024-07-04 04:13 | XMS_ITS | Encounter Summary ---
Author Organization [facility] Address [address] [place] [address] Phone Care Team Providers Care Spar Cap Beveler Name Role Phone Cherelle Corcoran MD Primary Care Pro vider Mark Queen MD Unavailable [phone]- [phone] Reason for Visit * Reason Comments Weakness - Generalized * Auth/Cert Specialty Diagnoses / Procedures Referred By Contflex t Referred To Contact Referral ID Status Reason Start Date Expiration Date Visits Re quested Visits Authorized [id number] 1 1 Encounter Details Date Type Department Care Team (Late st Contact Info) Description 05/28/2022 12:00 PM GUNSTOCK SPRAY UNIT FEEDER Home Care Visit [facility] [address] [place] [address] Hanny Cruz, ANG PT HOME VISIT Social [...] you attend chur ch or scientologist services? Never 09/10/2021 Do you belong to [...] in a group home (including now)? No 09/10/2021 Comments No Sex and Gender Information Value Date Recorded Sex Assigned at Not on file Legal Sex Female 9:03 AM GUNSTOCK SPRAY UNIT FEEDER Gender Identity Female 02/08/2020 6:39 PM CDT Sexual Orientation Not on file documented as of this encounter Last Filed Vital Signs Vital Sign Reading Time Taken Comments Blood Pressure 148/78 05/28/2022 12:34 PM GUNSTOCK SPRAY UNIT FEEDER Pulse 70 05/28/2022 12:34 PM GUNSTOCK SPRAY UNIT FEEDER Temperature 35.5 ??C (95.9 ??F) 05/28/2022 12:[address] Respiratory Rate 16 05/28/2022 12:34 PM GUNSTOCK SPRAY UNIT FEEDER Oxygen Saturation 97% 05/28/2022 12:34 PM GUNSTOCK SPRAY UNIT FEEDER Inhaled Oxygen Concentration - - Weight - - Height - - Body Mass Index - - documented in this encounter Miscellaneous Notes * Home Health Plan for Next Visit - Hanny Cruz PTA - 05/28/2022 11:53 AM CST Reason for today's visit to progress with standing strengthening Discuss plan of care with pt, and nerissaana maria Discharge planning when appropriate Plan for next visit to progress on standing balance and strengthening pt stronger with gait activiites and able to tolerate standing strengthening pt denies fall and was using walker today when P.T [facility]oc TOCK SPRAY UNIT FEEDER documented in this encounter Plan of Treatment Upcoming Encounters Date Type Department Care Team (Latest Contact Info) Description 07/13/2024 9:00 AM GUNSTOCK SPRAY UNIT FEEDER Hospital Encounter [facility] [address] [place] [address] Jaya Grier MD [facility] [facility] [address] [place] [address] 07/13/2024 9:00 AM GUNSTOCK SPRAY UNIT FEEDER - 07/13/2024 9:30 AM GUNSTOCK SPRAY UNIT FEEDER Surgery [facility] [address] [place] [address] Jaya Grier MD [address] [place] [address] ESOPHAGOGASTRODUODENOSCOPY Scheduled Procedures Name Priority Associated Diagnoses Date/Ti me ESOPHAGOGASTRODUODENOSCOPY Anemia, unspecified type Gastritis without bleeding, unspecified chronicity, unspecified gastritis type 07/13/2024 9:00 AM GUNSTOCK SPRAY UNIT FEEDER COLONOSCOPY Iron deficiency anemia due to [...] home health visit Disciplines: SN, PT, OT, SUPPLIER DEVELOPMENT MANAGER, HOME CARE AIDE, Skilled Disciplines Monitor patient's vital signs every [...] visit during episode of care Description: Home intake clinician to measure vital signs during every [...] in the home over level surfaces with supervision, exhibits flexion at neck and hips, decreased stridelength and stepheight and heel toe gait sob noted with gait pts demonstrates improved posture on this day Therapeutic Exercise Description: Perform therapeutic exercise, progressing as tolerated. Problem:PT Impaired Functional Mobility/Balance Completed see HEP comments Transfer training Description: Instruct patient/caregiver and perform transfer training. Problem:PT Impaired Functional Mobility/Balance Completed sit to from stand x 4 reps in succession with constant cues for hand placement to push up and to reach back when sitting pt is cautious and slow with transfers Home Exercise Program (HEP) Description: Instruct patient/caregiver and perform HEP. Problem:PT Impaired Functional Mobility/Balance Completed while the pt was standing instructed the pt on heel toe raises, hip abd/add, hip flexion with knee flexion with CGA pt leans forward on walker constant cues to improve posture while the pt was seated performed 15 reps each of heel toe raises, hip abd/add, laqs with cues to improve, glut sets and hip flexion with knee flexion with constant cues to complete correctly pt has written hep but does need cues to complete correctly Balance Training/Activities Description: Instruct patient/caregiver and perform balance training activities. Problem:PT Impaired Functional Mobility/Balance Completed standing static balance for 1 minute with feet apart and arms down to side pt slightly unsteady but had no lob then staggered stance each leg for 30 seconds with arms down to side leans forward at neck and hips cues to improve posture gait balance with wheeled walker 4-/5 documented in this encounter Care Teams Spar Cap Beveler Relationship Specialty Start Date End Date Cherelle Corcoran MD PCP - General Family Medicine 08/30/19 Mark Queen MD Consulting Physician Infectious Diseases 01/10/20 documented as of this encounter
--- OUTSIDE RECORDS SUMMARY | 2024-07-04 04:13 | XMS_ITS | Encounter Summary ---
Author Organization [facility] Address [address] [place] [address] Phone Care Team Providers Care Sap Functional Analyst Name Role Phone Cherelle Corcoran MD Primary Care Pro vider Mark Queen MD Unavailable [phone] Reason for Visit * Auth/Cert Specialty Diagnoses / Procedures Referred By Maryse lama Referred To Contact Referral ID Status Reason Start Date Expiration Date Visits Re quested Visits Authorized [id number] 1 1 Encounter Details Date Type Department Care Team (Late st Contact Info) Description 06/02/2022 Home Care Visit [facility] - [address] [place] [address] Jewel Sow, SPARMAKER AIR SAMPLER DISCIPLINE DISCHARGE Social History Tobacco Use Types [...] you attend chur ch or mandaen services? Never 09/10/2021 Do you belong to [...] on file Legal Sex Female 9:03 AM CLOUD AUTOMATION TESTER Gender Identity Female 02/08/2020 6:39 PM CDT Sexual Orientation Not on file documented as of this encounter Plan of Treatment Upcoming Encounters Date Type Department Care Team (Latest Contact Info) Description 07/13/2024 9:00 AM CLOUD AUTOMATION TESTER Hospital Encounter [facility] [address] [place] [address] Jaya Grier MD [address] [facility] [address] [place] [address] 07/13/2024 9:00 AM CLOUD AUTOMATION TESTER - 07/13/2024 9:30 AM CLOUD AUTOMATION TESTER Surgery [facility] [address] [place] [address] Jaya Grier MD [address] [facility] [address] [place] [address] ESOPHAGOGASTRODUODENOSCOPY Scheduled Procedures Name Priority Associated Diagnoses Date/Ti me ESOPHAGOGASTRODUODENOSCOPY Anemia, unspecified type Gastritis without bleeding, unspecified chronicity, unspecified gastritis type 07/13/2024 9:00 AM CLOUD AUTOMATION TESTER COLONOSCOPY Iron deficiency anemia due to chronic blood loss documented as of this encounter Visit Diagnoses Not on filedocumented in this encounter Home Health Visit - Care Plan Visit Details Visit Type -AIR SAMPLER Discipline D ischarge Discipline -Medical Social Work Problems Problem Description Start Date Status Goals Interve ntions AIR SAMPLER Resource Needs Disciplines: Social Work Deficit related to resources. 06/02/2022 Resolved on 06/02/2022 1 goal linked to scheduled/documen bruno intervention 1 goal intervention scheduled/documen bruno in this visit AIR SAMPLER Emotional Support Needs Disciplines: Social Work Deficit related to emotional support. 06/02/2022 Resolved on 06/02/2022 1 goal linked to scheduled/documen bruno intervention 1 goal intervention scheduled/documen bruno in this visit Goals Goal Associated Problem Outcome Goal Met? Visit Notes Understanding of available resources Description: Resource needs met as evidenced by patient/family/ caregiver verbalizes understanding of available resources and ways to obtain these. AIR SAMPLER Resource Needs Completed Yes Increase emotional support Description: Patient/ family/ caregiver understands impact of illness as evidenced by verbalizing acceptance of the disease process. AIR SAMPLER Emotional Support Needs Completed Yes Interventions Intervention Associated Problem/Goal Status Variance Visit Notes Provide assistance with identifying appropriate community resources Description: Provide assistance with identifying appropriate community resources Problem:AIR SAMPLER Resource Needs Goal:Understanding of available resources Completed AIR SAMPLER PSYCHOSOCIAL SBAR Visit with pt and family completed on:06/02/22 SITUATION: Pt is a 71 year old female admitted to home health due to patient c/o pain in hands, feet, decreased cervical mobility this date. Pertinent Medical History/Hospitalization s: PMH: htn, DM, GErD, CKD, anemia, schizoaffective disorder, amputation R toe, neuropathy, dementia, alzheimer's BACKGROUND: Living situation: Lives with dtr in a town home with lower level Caregiver supports: Dtr primary care transition coordinator, dtr works during the day. Grandkids are present when dtr at work. Family provides 24 hour supervision, assists with shopping, meals, transportation, shower assist and med management. Per granddaughter, family tried to place pt at a [facility] in [place] but pt was denied due to schizophrenia dx Physical status: Pt uses 2ww for ambulation, pt reports appetite good, sleep good Relationships/back ground: , 3 kids, pt not a , pt nursing home social worker Income/Assets: Pt collects social security, dtr manages finances. Able to afford all basic needs Substance use: Patient denies ETOH, tobacco and illicit drug use ASSESSMENT: Priorities/Goals: Per pt, to get myself back on track and to feel well . Pt shares that she is starting to feel better Current Stressors: Pt denies stressors Assets: Pt has supportive family, granddaughter shares that dtr is legal guardian Orientation: Pt has Alzheimer's dx, slow responses to questions Mood/affect/coping skills: Pt has a dx of schizoaffective disorder. Pt endorses some depression. Pt says he reads the Bible when she is feeling sadness. Pt denies past/current SI Pain: Pt c/o pain in the top knuckle of her right hands RECOMMENDATIONS *Per granddaughter, family would like to place pt in a local NH. They wanted to to go to [facility] in [place] bot the facility denied pt due to Schizophrenia dx. AIR SAMPLER to call dtr to discuss and AIR SAMPLER will send out referrals for LTC placement *AIR SAMPLER provided resource for free/donated DME equipment at [facility] [phone], [address] [facility] *AIR SAMPLER provided information for Home Delivery Incontinence Supplies (HDIS) for Medicaid paid incontinence supplies ph: [phone] AIR SAMPLER provided emotional support and encouragement to patient through conversation, active listening, and supportive presence. Patient verbalized understanding of all resources discussed. Patient had no other needs or concerns. AIR SAMPLER encouraged patient to contact Home Care Provide Emotional Support Description: Provide emotional support Problem:AIR SAMPLER Emotional Support Needs Goal:Increase emotional support Completed AIR SAMPLER provided emotional support and encouragement to patient through conversation, active listening and supportive presence documented in this encounter Care Teams Sap Functional Analyst Relationship Specialty Start Date End Date Cherelle Corcoran MD PCP - General Family Medicine 08/30/19 Mark Queen MD Consulting Physician Infectious Diseases 01/10/20 documented as of this encounter
--- OUTSIDE RECORDS SUMMARY | 2024-07-04 04:13 | XMS_ITS | Encounter Summary ---
Author Organization [facility] Address [address] [facility] [facility] [address] [place] [address] Care Team Providers Care Genomics Scientist Name Role Phone Cherelle Corcoran MD Primary Care Pro vider Mark Queen MD Unavailable [phone] Brandie Callejas Unavailable Unavail able Reason for Visit * Reason Onset Date Comments Medical Question/Miscellaneous 05/20/2022 Encounter Details Date Type Department Care Team ([facility] st Contact Info) Description 05/20/[address] [facility] Primary Care [address] [facility] [address] [place] [address] Cherelle Corcoran MD [address] [place] [address] [address] [place] [address] Medical Question/Miscellaneous Social History Tobacco [...] attend chur ch or yazidi services? Never 09/10/2021 Do you belong to [...] on file Legal Sex Female 9:03 AM LEAD PRESSER Gender Identity Female 02/08/2020 6:39 PM CDT Sexual Orientation Not on file documented as of this encounter Miscellaneous Notes * Telephone Encounter - Morenita Mathur - 05/20/2022 12:54 PM CST Medical Question/Miscellaneous Caller???s Concern: Patients daughter called to check on prescription request but will call back tohave other medications filled. Caller???s Call back #: [phone] Does message need to be routed?No PRESSER documented in this encounter Plan of Treatment Upcoming Encounters Date Type Department Care Team (Latest Contact Info) Description 07/13/2024 9:00 AM LEAD PRESSER Hospital Encounter [facility] Lab [address] [place] [address] Jaya Grier MD [address] [place] [address] [address] [place] [address] 07/13/2024 9:00 AM LEAD PRESSER - 07/13/2024 9:30 AM LEAD PRESSER Surgery [facility] [address] [place] [address] Jaya Grier MD [facility] [address] [place] [address] ESOPHAGOGASTRODUODENOSCOPY Scheduled Procedures Name Priority Associated Diagnoses Date/Ti wa ESOPHAGOGASTRODUODENOSCOPY Anemia, unspecified type Gastritis without bleeding, unspecified chronicity, unspecified gastritis type 07/13/2024 9:00 AM LEAD PRESSER COLONOSCOPY Iron deficiency anemia due to chronic blood loss documented as of this encounter Visit Diagnoses Not on filedocumented in this encounter Additional Health Concerns Infection Onset Date Last Indicated Resolved Time COVID: Suspected 06/19/2022 06/19/2022 06/19/2022 12:37 PM LEAD PRESSER documented as of this encounter Care Teams Genomics Scientist Relationship Specialty Start Date End Date Cherelle Corcoran MD PCP - General Family Medicine 08/30/19 Mark Queen MD Consulting Physician Infectious Diseases 01/10/20 Brandie Callejas Patient Health Navigator 06/20/22 06/22/22 documented as of this encounter
--- OUTSIDE RECORDS SUMMARY | 2024-07-04 04:13 | XMS_ITS | Encounter Summary ---
Author Organization [facility] Address [address] [place] [address] Phone Care Team Providers Care Repairer Handtools Name Role Phone Cherelle Corcoran MD Primary Care Pro vider Mark Queen MD Unavailable [phone] Reason for Visit * Auth/Cert Specialty Diagnoses / Procedures Referred By Maryse lama Referred To Contact Referral ID Status Reason Start Date Expiration Date Visits Re quested Visits Authorized [id number] 1 1 Encounter Details Date Type Department Care Team (Late st Contact Info) Description 05/13/2022 Home Care Visit [facility] [address] [address] [address] [place] [address] Yamilka Hoang, PT CARE CONFERENCE Social History Tobacco Use Types Packs/Day Years [...] you attend chur ch or caodaism services? Never 09/10/2021 Do you belong to [...] on file Legal Sex Female 9:03 AM STRUCTURAL ANALYST Gender Identity Female 02/08/2020 6:39 PM CDT Sexual Orientation Not on file documented as of this encounter Plan of Treatment Upcoming Encounters Date Type Department Care Team (Latest Contact Info) Description 07/13/2024 9:00 AM STRUCTURAL ANALYST Hospital Encounter [facility] [address] [place] [address] Jaya Grier MD [facility] [facility] [address] [place] [address] 07/13/2024 9:00 AM STRUCTURAL ANALYST - 07/13/2024 9:30 AM STRUCTURAL ANALYST Surgery [facility] [address] [place] [address] Jaya Grier MD [facility] [facility] [address] [place] [address] ESOPHAGOGASTRODUODENOSCOPY Scheduled Procedures Name Priority Associated Diagnoses Date/Ti me ESOPHAGOGASTRODUODENOSCOPY Anemia, unspecified type Gastritis without bleeding, unspecified chronicity, unspecified gastritis type 07/13/2024 9:00 AM STRUCTURAL ANALYST COLONOSCOPY Iron deficiency anemia due to chronic blood loss documented as of this encounter Visit Diagnoses Not on filedocumented in this encounter Care Teams Repairer Handtools Relationship Specialty Start Date End Date Cherelle Corcoran MD PCP - General Family Medicine 08/30/19 Mark Queen MD Consulting Physician Infectious Diseases 01/10/20 documented as of this encounter
--- OUTSIDE RECORDS SUMMARY | 2024-07-04 04:13 | XMS_ITS | Encounter Summary ---
Author Organization [facility] Address [address] [facility] [address] [place] [address] Care Team Providers Care Colorist Formulator Name Role Phone Cherelle Corcoran MD Primary Care Pro vider Mark Queen MD Unavailable [phone] Encounter Details Date Type Department Care Team (Late st Contact Info) Description 05/27/2022 Telephone [facility] Primary Care [address] [facility] [address] [place] [address] Cherelle Corcoran MD [facility] [address] [place] [address] Social History Tobacco Use Types [...] week 09/10/2021 How often do you attend [facility] or buddhist services? Never 09/10/2021 Do you belong to [...] file Legal Sex Female 9:03 AM FRONT OFFICE ADMINISTRATOR Gender Identity Female 02/08/2020 6:39 PM CDT Sexual Orientation Not on file documented as of this encounter Miscellaneous Notes * Telephone Encounter - Sandy Mota MA - 06/02/2022 10:40 AM CST Pt daughter aware she can call [phone] and they will help her find a facility. She will give them a call and go from there. Thanks! T OFFICE ADMINISTRATOR * Telephone Encounter - Cherelle Corcoran MD - 05/30/2022 12:09 PM CST Why was she denied? Please confirm with April Guo, I know she has some good recommendations for nursing homes with memory care. Thanks T OFFICE ADMINISTRATOR * Telephone Encounter - Morenita Mathur - 05/27/2022 3:54 PM CST Medical Question/Miscellaneous Caller???s Concern: Patients daughter called in to relay that [facility] and would like other resources for other nursing homes patient could be placed. Caller???s Call back #: [phone] Does message need to be routed?Yes-Action Needed T OFFICE ADMINISTRATOR documented in this encounter Plan of Treatment Upcoming Encounters Date Type Department Care Team (Latest Contact Info) Description 07/13/2024 9:00 AM FRONT OFFICE ADMINISTRATOR Hospital Encounter [facility] GI Lab [address] [place] [address] Jaya Grier MD [address] [place] [address] 07/13/2024 9:00 AM FRONT OFFICE ADMINISTRATOR - 07/13/2024 9:30 AM FRONT OFFICE ADMINISTRATOR Surgery [facility] Lab [address] [place] [address] Jaya Grier MD [address] [facility] [address] [place] [address] ESOPHAGOGASTRODUODENOSCOPY Scheduled Procedures Name Priority Associated Diagnoses Date/Ti me ESOPHAGOGASTRODUODENOSCOPY Anemia, unspecified type Gastritis without bleeding, unspecified chronicity, unspecified gastritis type 07/13/2024 9:00 AM FRONT OFFICE ADMINISTRATOR COLONOSCOPY Iron deficiency anemia due to chronic blood loss documented as of this encounter Visit Diagnoses Not on filedocumented in this encounter Care Teams Colorist Formulator Relationship Specialty Start Date End Date Cherelle Corcoran MD PCP - General Family Medicine 08/30/19 Mark Queen MD Consulting Physician Infectious Diseases 01/10/20 documented as of this encounter
--- OUTSIDE RECORDS SUMMARY | 2024-07-04 04:13 | XMS_ITS | Encounter Summary ---
Author Organization [facility] Address [address] [place] [address] Phone Care Team Providers Care Nephrology Nurse Name Role Phone Cherelle Corcoran MD Primary Care Pro vider Mark Queen MD Unavailable [phone] Reason for Visit * Auth/Cert Specialty Diagnoses / Procedures Referred By Maryse lama Referred To Contact Referral ID Status Reason Start Date Expiration Date Visits Re quested Visits Authorized [id number] 1 1 Encounter Details Date Type Department Care Team (Late st Contact Info) Description 04/22/2022 Home Care Visit [facility] - [address] [place] [address] Hemalatha Conteh RN TELEPHONE ENCOUNTER Social History Tobacco Use Types [...] you attend chur ch or yarsanism services? Never 09/10/2021 Do you belong to [...] file Legal Sex Female 9:03 AM CERTIFIED PHARMACY TECHNICIAN Gender Identity Female 02/08/2020 6:39 PM CDT Sexual Orientation Not on file documented as of this encounter Miscellaneous Notes * Case Communication - Hemalatha Conteh RN - 04/22/2022 2:23 PM CDTMedi span ran and no potential severe interactions noted with active medications listed. Called patient on 04/20, 04/21 and again today to reconcile medications. No answer. Transfer entered in chart but no admission seen per chart review in epic system. Notified rehabilitation caseworker. documented in this encounter Plan of Treatment Upcoming Encounters Date Type Department Care Team (Latest Contact Info) Description 07/13/2024 9:00 AM CERTIFIED PHARMACY TECHNICIAN Hospital Encounter [facility] [address] [place] [address] Jaya Grier MD [address] [place] [address] [address] [place] [address] 07/13/2024 9:00 AM CERTIFIED PHARMACY TECHNICIAN - 07/13/2024 9:30 AM CERTIFIED PHARMACY TECHNICIAN Surgery [facility] [address] [place] [address] Jaya Grier MD [facility] [facility] [address] [place] [address] ESOPHAGOGASTRODUODENOSCOPY Scheduled Procedures Name Priority Associated Diagnoses Date/Ti or ESOPHAGOGASTRODUODENOSCOPY Anemia, unspecified type Gastritis without bleeding, unspecified chronicity, unspecified gastritis type 07/13/2024 9:00 AM CERTIFIED PHARMACY TECHNICIAN COLONOSCOPY Iron deficiency anemia due to chronic blood loss documented as of this encounter Visit Diagnoses Not on filedocumented in this encounter Care Teams Nephrology Nurse Relationship Specialty Start Date End Date Cherelle Corcoran MD PCP - General Family Medicine 08/30/19 Mark Queen MD Consulting Physician Infectious Diseases 01/10/20 documented as of this encounter
--- OUTSIDE RECORDS SUMMARY | 2024-07-04 04:13 | XMS_ITS | Encounter Summary ---
Author Organization [facility] Address [address] [facility] [address] [place] [address] Care Team Providers Care Bricklayer Helper Name Role Phone Cherelle Corcoran MD Primary Care Pro vider Mark Queen MD Unavailable [phone] Encounter Details Date Type Department Care Team (Late st Contact Info) Description 04/19/2022 Orders Only [facility] Health Information Management [address] [place] [address] Scanning, Provider Social History Tobacco Use Types Packs/Day Years [...] you attend chur ch or amish services? Never 09/10/2021 Do you belong to [...] on file Legal Sex Female 9:03 AM WINDOWS LAPTOP TECHNICIAN Gender Identity Female 02/08/2020 6:39 PM CDT Sexual Orientation Not on file documented as of this encounter Plan of Treatment Upcoming Encounters Date Type Department Care Team (Latest Contact Info) Description 07/13/2024 9:00 AM WINDOWS LAPTOP TECHNICIAN Hospital Encounter [facility] Lab [address] [place] [address] Jaya Grier MD [address] [facility] [address] [place] [address] 07/13/2024 9:00 AM WINDOWS LAPTOP TECHNICIAN - 07/13/2024 9:30 AM WINDOWS LAPTOP TECHNICIAN Surgery [facility] [address] [place] [address] Jaya Grier MD [address] [facility] [address] [place] [address] ESOPHAGOGASTRODUODENOSCOPY Scheduled Procedures Name Priority Associated Diagnoses Date/Ti me ESOPHAGOGASTRODUODENOSCOPY Anemia, unspecified type Gastritis without bleeding, unspecified chronicity, unspecified gastritis type 07/13/2024 9:00 AM WINDOWS LAPTOP TECHNICIAN COLONOSCOPY Iron deficiency anemia due to chronic blood loss documented as of this encounter Procedures Procedure Name Priority Date/Time Associated Diagnosis Comments SCAN - RADIOLOGY/IMAGING 04/19/2022 documented in this encounter Results * SCAN - RADIOLOGY/IMAGING (04/19/2022) Anatomical Region Laterality Modality Other us Provider Scanning Edited Result - Final documented in this encounter Visit Diagnoses Not on filedocumented in this encounter Care Teams Bricklayer Helper Relationship Specialty Start Date End Date Cherelle Corcoran MD PCP - General Family Medicine 08/30/19 Mark Queen MD Consulting Physician Infectious Diseases 01/10/20 documented as of this encounter
--- OUTSIDE RECORDS SUMMARY | 2024-07-04 04:13 | XMS_ITS | Encounter Summary ---
Author Organization [facility] Address [address] [place] [address] Phone Care Team Providers Care Editor Name Role Phone Cherelle Corcoran MD Primary Care Pro vider Mark Queen MD Unavailable [phone] Reason for Visit * Auth/Cert Specialty Diagnoses / Procedures Referred By Maryse lama Referred To Contact Referral ID Status Reason Start Date Expiration Date Visits Re quested Visits Authorized [id number] 1 1 Encounter Details Date Type Department Care Team (Late st Contact Info) Description 06/01/2022 Home Care Visit [facility] Home Health - [address] [place] [address] Jewel Sow, [facility] TELEPHONE ENCOUNTER Social History Tobacco Use [...] you attend chur ch or hindu services? Never 09/10/2021 Do you belong to [...] slept in a snf (including now)? No 09/10/2021 Comments No Sex and Gender Information Value Date Recorded Sex Assigned at Not on file Legal Sex Female 9:03 AM MANAGER OF REVENUE Gender Identity Female 02/08/2020 6:39 PM CDT Sexual Orientation Not on file documented as of this encounter Plan of Treatment Upcoming Encounters Date Type Department Care Team (Latest Contact Info) Description 07/13/2024 9:00 AM MANAGER OF REVENUE Hospital Encounter [facility] Lab [address] [place] [address] Jaya Grier MD [address] [facility] [address] [place] [address] 07/13/2024 9:00 AM MANAGER OF REVENUE - 07/13/2024 9:30 AM MANAGER OF REVENUE Surgery [facility] [address] [place] [address] Jaya Grier MD [address] [facility] [address] [place] [address] ESOPHAGOGASTRODUODENOSCOPY Scheduled Procedures Name Priority Associated Diagnoses Date/Ti me ESOPHAGOGASTRODUODENOSCOPY Anemia, unspecified type Gastritis without bleeding, unspecified chronicity, unspecified gastritis type 07/13/2024 9:00 AM MANAGER OF REVENUE COLONOSCOPY Iron deficiency anemia due to chronic blood loss documented as of this encounter Visit Diagnoses Not on filedocumented in this encounter Care Teams Editor Relationship Specialty Start Date End Date Cherelle Corcoran MD PCP - General Family Medicine 08/30/19 Mark Queen MD Consulting Physician Infectious Diseases 01/10/20 documented as of this encounter
--- OUTSIDE RECORDS SUMMARY | 2024-07-04 04:13 | XMS_ITS | Encounter Summary ---
Author Organization [facility] Address [address] [place] [address] Care Team Providers Care Warehouse Freight Handler Name Role Phone Cherelle Corcoran MD Primary Care Pro vider Mark Queen MD Unavailable [phone] Reason for Referral * Diagnostic Imaging (Routine) - Closed Specialty Diagnoses / Procedures Referred By Maryse t Referred To Contact Diagnoses Acute cough Procedures XR Chest Pa Lateral 2 Vw Cherelle Corcoran MD Phone: tel: fax: [facility] [address] [place] [address] Referral ID Status Reason Start Date Expiration Date Visits Re quested Visits Authorized [id number] Closed 04/29/2022 05/29/2023 1 1 DENTIAL CASE MANAGER Reason for Visit * Reason Comments Hospital Follow Up Cough sneezing Fatigue Vomiting Encounter Details Date Type Department Care Team (Latest Contact Info) Description 04/29/2022 3:30 PM RESIDENTIAL CASE MANAGER Office Visit [facility] Primary Care [facility] [address] [place] [address] Cherelle Corcoran MD [address] [place] [id number] Hospitalization or health care facility admission within last 6 months (Primary Dx); Acute cough; Hypertension associated with diabetes (HCC) Social History [...] you attend chur ch or tenriism services? Never 09/10/2021 Do you belong to any clubs o r organizations such as uatsdin groups, unions, fraternal or athletic groups, or [...] slept in a detention (including now)? No 09/10/2021 Comments No Sex and Gender Information Value Date Recorded Sex Assigned at Not on file Legal Sex Female 9:03 AM RESIDENTIAL CASE MANAGER Gender Identity Female 02/08/2020 6:39 PM CDT Sexual Orientation Not on file documented as of this encounter Last Filed Vital Signs Vital Sign Reading Time Taken Comments Blood Pressure 122/84 04/29/2022 3:27 PM RESIDENTIAL CASE MANAGER Pulse 80 04/29/2022 3:27 PM RESIDENTIAL CASE MANAGER Temperature 36.5 ??C (97.7 ??F) 04/29/2022 3:27 PM CS T Respiratory Rate 18 04/29/2022 3:27 PM RESIDENTIAL CASE MANAGER Oxygen Saturation 97% 04/29/2022 3:27 PM RESIDENTIAL CASE MANAGER Inhaled Oxygen Concentration - - Weight - - Height 157.5 cm (5' 2 ) 04/29/2022 3:27 PM RESIDENTIAL CASE MANAGER Body Mass Index - - documented in this encounter Ordered Prescriptions Prescription Sig Dispense Quantity Refills Last Filled Start Date End Date carvediloL (COREG) 3.125 mg tabletIndications: Hypertension associated with diabetes (HCC) Take 1 tablet (3.125 mg total) by mouth 2 (two) times a day with meals 180 tablet 1 04/29/2022 08/07/2022 documented in this encounter Progress Notes * Cherelle Corcoran MD - 04/29/2022 3:30 PM CST Images from the original note were not included. Assessment/Plan: Assessment/Plan Diagnoses and all orders for this visit: Hospitalization or health care facility admission within last 6 months (Primary) Comments: Reviewed ED note & H&P Stable on exam today Acute cough Comments: COVID/flu negative CXR wnl Continue supportive treatment Orders: - XR Chest Pa Lateral 2 Vw; Future Hypertension associated with diabetes (HCC) - carvediloL (COREG) 3.125 mg tablet; Take 1 tablet (3.125 mg total) by mouth 2 (two) times a day with meals F/u if symptoms not improving or worsen. Strict return/ED precautions discussed. Subjective: Barbara Chakraborty is a 71 y.o. female here for hospital follow up for UTI Cough Fatigue Associated symptoms include coughing, fatigue and vomiting. Vomiting Associated symptoms include coughing. Chief Complaint Patient presents with Hospital Follow Up Cough sneezing Fatigue Vomiting Recently hospitalized at [facility] for UTI, just finished antibiotics Also having weakness, d/c with home health Now having cough, daughter concerned as has previously developed pneumonia after hospitalization Vomited twice on Thursday, none since. Hypertension: needs refill coreg Review of Systems Constitutional: Positive for fatigue. HENT: Positive for sneezing. Respiratory: Positive for cough. Gastrointestinal: Positive for vomiting. Objective: Vital signs were reviewed. Vitals: 04/29/22 1527 BP: 122/84 BP Location: Left arm Patient Position: Sitting Pulse: 80 Resp: 18 Temp: 36.5 ??C (97.7 ??F) TempSrc: Temporal SpO2: 97% Height: 157.5 cm (5' 2 ) Physical [...] for ambulation Psych: alert and oriented to person/place Cherelle Corcoran MD DENTIAL CASE MANAGER documented in this encounter Plan of Treatment Upcoming Encounters Date Type Department Care Team (Latest Contact Info) Description 07/13/2024 9:00 AM RESIDENTIAL CASE MANAGER Hospital Encounter [facility] [address] [place] [address] Jaya Grier MD [address] [facility] [facility] [place] [address] 07/13/2024 9:00 AM RESIDENTIAL CASE MANAGER - 07/13/2024 9:30 AM RESIDENTIAL CASE MANAGER Surgery [facility] [address] [place] [address] Jaya Grier MD [address] [facility] [address] [place] [address] ESOPHAGOGASTRODUODENOSCOPY Scheduled Procedures Name Priority Associated Diagnoses Date/Ti me ESOPHAGOGASTRODUODENOSCOPY Anemia, unspecified type Gastritis without bleeding, unspecified chronicity, unspecified gastritis type 07/13/2024 9:00 AM RESIDENTIAL CASE MANAGER COLONOSCOPY Iron deficiency anemia due to chronic blood loss documented as of this encounter Results * XR Chest Pa Lateral 2 Vw (04/29/2022 4:55 PM RESIDENTIAL CASE MANAGER) Anatomical Region Laterality Modality Body, Chest N/A Computed Radiogr aphy 04/29/2022 5:53 PM RESIDENTIAL CASE MANAGER Narrative 04/29/2022 5:55 PM RESIDENTIAL CASE MANAGER EXAM DESCRIPTION: ?? XR CHEST PA LATERAL 2 VIEWS REASON FOR STUDY: ? Cough x a couple of days ?? TECHNIQUE: ?? Frontal ??and lateral radiographic views of the chest acquired. COMPARISON: ?? 11/15/2021 FINDINGS: LUNGS/PLEURA: ?? The lungs are stable in appearance compared to the recent examination. ??Minimal atelectasis demonstrated at the bases. ??No localized consolidation. ??No effusion or pneumothorax. HEART/MEDIASTINUM: ?? Cardiac silhouette is within normal limits in size. ?? Mediastinal contours are stable. HARDWARE/LINES/TUBES: ?? None. BONES: ?? 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 ??No acute process. OTHER: ?? No other significant finding. IMPRESSION: ?? Mild atelectasis. ??No localized consolidation. ??No large effusion or pneumothorax. THIS IS AN ELECTRONICALLY VERIFIED FINAL REPORT 04/29/2022 5:55 PM - Electronically signed by ??Rafaela Paulino M.D. TW: TW D: ??04/29/2022 5:55 PM T: ??04/29/2022 5:55 PM Report ID: [id number] Reading Location: ??[id number] Procedure Note Rafaela Paulino MD - 04/29/2022 EXAM DESCRIPTION: XR CHEST PA LATERAL 2 VIEWS REASON FOR STUDY: Cough x a couple of days TECHNIQUE: Frontal and lateral radiographic views of the chestacquired. COMPARISON: 11/15/2021 FINDINGS: LUNGS/PLEURA: The lungs are stable in appearance compared tothe recent examination. Minimal atelectasis demonstrated at the bases. No localized consolidation. No effusion or pneumothorax. HEART/MEDIASTINUM: Cardiac silhouette is within normal limits in size. Mediastinal contours are stable. HARDWARE/LINES/TUBES: None. 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 No acute process. OTHER: No other significant finding. IMPRESSION: Mild atelectasis. No localized consolidation. No large effusion or pneumothorax. THIS IS AN ELECTRONICALLY VERIFIED FINAL REPORT 04/29/2022 5:55 PM - Electronically signed by Rafaela Paulino M.D. TW: TW Report ID: [id number] Reading Location: [id number] Cherelle Corcoran MD IMG XR PROCEDURES Final Result documented in this encounter Visit Diagnoses Diagnosis Hospitalization or health care facility admission within last 6 months- Primary Acute cough Hypertension associated with diabetes (HCC) Unspecified essential hypertension Acute cough Anemia, unspecified type Gastritis without bleeding, unspecified chronicity, unspecified gastritis type documented in this encounter Discontinued Medications Medication Sig Discontinue Reason Start Date End Da te carvediloL (COREG) 3.125 mg tabletIndications:Hypert ension associated with diabetes (HCC) Take 1 tablet (3.125 mg total) by mouth 2 (two) times a day with meals Reorder 04/11/2022 04/29/2022 documented as of this encounter Care Teams Warehouse Freight Handler Relationship Specialty Start Date End Date Cherelle Corcoran MD PCP - General Family Medicine 08/30/19 Mark Queen MD Consulting Physician Infectious Diseases 01/10/20 documented as of this encounter
--- OUTSIDE RECORDS SUMMARY | 2024-07-04 04:13 | XMS_ITS | Encounter Summary ---
Author Organization [facility] Address [address] [place] [address] Care Team Providers Care Analytical Chemistry Teacher Name Role Phone Cherelle Corcoran MD Primary Care Pro vider Mark Queen MD Unavailable [phone] Reason for Visit * Reason Comments Follow-up Encounter Details Date Type Department Care Team ([facility] st Contact Info) Description 05/13/2022 1:30 PM SOCIAL STAFF WORKER Office Visit [facility] Primary Care [address] [facility] [address] [place] [address] Cherelle Corcoran MD [address] [place] [address] [address] [place] [address] Weakness (Primary Dx); STEFANO (acute kidney injury) (CMS/HCC) (HCC) Social History Tobacco Use Types [...] you attend chur ch or christian services? Never 09/10/2021 Do you belong to [...] on file Legal Sex Female 9:03 AM SOCIAL STAFF WORKER Gender Identity Female 02/08/2020 6:39 PM CDT Sexual Orientation Not on file documented as of this encounter Last Filed Vital Signs Vital Sign Reading Time Taken Comments Blood Pressure 130/84 05/13/2022 1:44 PM SOCIAL STAFF WORKER Pulse 71 05/13/2022 1:44 PM SOCIAL STAFF WORKER Temperature 36.4 ??C (97.5 ??F) 05/13/2022 1:44 PM CS T Respiratory Rate 18 05/13/2022 1:44 PM SOCIAL STAFF WORKER Oxygen Saturation 96% 05/13/2022 1:44 PM SOCIAL STAFF WORKER Inhaled Oxygen Concentration - - Weight - - Height - - Body Mass Index - - documented in this encounter Patient Instructions * Patient Instructions* Cherelle Corcoran MD - 05/13/2022 1:30 PM SOCIAL STAFF WORKER [email or web address] AL STAFF WORKER documented in this encounter Progress Notes * Cherelle Corcoran MD - 05/13/2022 1:30 PM CST Images from the original note were not included. Assessment/Plan: Assessment/Plan Diagnoses and all orders for this visit: Weakness (Primary) Comments: Reviewed ED note, labs and CT head Home health ordered Discussed looking into custodial with daughter as unable to provide all the care Ms. Jimenez needs now Orders: - Ambulatory referral to Home Health; Future STEFANO (acute kidney injury) (CMS/HCC) ([facility]) Comments: Recheck improved to baseline continue to monitor Orders: - Basic metabolic panel; Future F/u if symptoms not improving or worsen. Strict return/ED precautions discussed. Subjective: Barbara Chakraborty is a 71 y.o. female here for ED follow up HPI Chief Complaint Patient presents with Follow-up Seen in ED for weakness/falls. Labs/imaging done and thought to have uti so started on antibiotics. Urine culture has now come back with no growth Cr also elevated above baseline Lives with daughter who provides 20 hours/week of home care, but unable to be there 12/01 as she is working also. Granddaughter helps out some Confusion at baseline from schizophrenia Review of Systems Neurological: Positive for weakness. Psychiatric/Behavioral: Positive for confusion. Objective: Vital signs were reviewed. Vitals: 05/13/22 1344 BP: 130/84 BP Location: Left arm Patient Position: Sitting Pulse: 71 Resp: 18 Temp: 36.4 ??C (97.5 ??F) TempSrc: Temporal SpO2: 96% Physical Exam Gen: NAD, comfortable, appears as stated age Eyes: no conjunctival injection, EOMI ENMT: external ears symmetric CV: Regular rate Pulm: no increased work of breathing Skin: no rashes or nodules, warm and dry MSK/Neuro: symmetric limb movement, using wheelchair Psych: alert and oriented to person Cherelle Corcoran MD AL STAFF WORKER documented in this encounter Plan of Treatment Upcoming Encounters Date Type Department Care Team (Latest Contact Info) Description 07/13/2024 9:00 AM SOCIAL STAFF WORKER Hospital Encounter [facility] [address] [place] [address] Jaya Grier MD [facility] [facility] [address] [place] [address] 07/13/2024 9:00 AM SOCIAL STAFF WORKER - 07/13/2024 9:30 AM SOCIAL STAFF WORKER Surgery [facility] [address] [place] [address] Jaya Grier MD [address] [place] [address] ESOPHAGOGASTRODUODENOSCOPY Scheduled Procedures Name Priority Associated Diagnoses Date/Ti me ESOPHAGOGASTRODUODENOSCOPY Anemia, unspecified type Gastritis without bleeding, unspecified chronicity, unspecified gastritis type 07/13/2024 9:00 AM SOCIAL STAFF WORKER COLONOSCOPY Iron deficiency anemia due to chronic blood loss documented as of this encounter Results * (ABNORMAL) Basic metabolic panel (05/13/2022 2:45 PM SOCIAL STAFF WORKER) Sodium 143 135 - 145 mmol/L [facility] Comment:Testing performed by : [address] [address] Potassium, pl 4.2 3.3 - 4.9 mmol/L [facility] Comment:Testing performed by : [address], [place]., [address] Chloride 102 97 - 110 mmol/L [facility] Comment:Testing performed by : [address], [place]., [address] CO2 29 22 - 32 mmol/L [facility] Comment:Testing performed by : [address], [place]., [address] Anion gap 12 2 - 15 mmol/L [facility] Comment:Testing performed by : [address], [place]., [address] BUN 39(H) 8 - 25 mg/dL [facility] Comment:Testing performed by : [address], [place]., [address] Creatinine 1.90(H) 0.60 - 1.10 mg/dL [facility] Comment:Testing performed by : [address] [address] Glucose 150 70 - 199 mg/dL [facility] Comment: Interpretive Data Fasting [...] was last revised 2017. Testing performed by: [address], [place]., [address] Calcium 10.0 8.5 - 10.3 mg/dL [facility] Comment:Testing performed by : [address], [place]., [address] Blood 05/13/2022 2:45 PM SOCIAL STAFF WORKER 05/13/2022 3:09 PM SOCIAL STAFF WORKER Cherelle Corcoran MD LAB BLOOD ORDERAB LES Final Result [facility] [address] [facility] Department [place] [address] documented in this encounter Visit Diagnoses Diagnosis Weakness- Primary Other malaise and fatigue STEFANO (acute kidney injury) (HCC) Anemia, unspecified type Gastritis without bleeding, unspecified chronicity, unspecified gastritis type documented in this encounter Care Teams Analytical Chemistry Teacher Relationship Specialty Start Date End Date Cherelle Corcoran MD PCP - General Family Medicine 08/30/19 Mark Queen MD Consulting Physician Infectious Diseases 01/10/20 documented as of this encounter
--- OUTSIDE RECORDS SUMMARY | 2024-07-04 04:13 | XMS_ITS | Encounter Summary ---
Author Organization [facility] Home Care Servic es Address [address] [place] [address] Phone Care Team Providers Care Cable Television Program Director Name Role Phone hCerelle Corcoran MD Primary Care Pro vider Mark Queen MD Unavailable [phone] Reason for Visit * Auth/Cert Specialty Diagnoses / Procedures Referred By Maryse lama Referred To Contact Referral ID Status Reason Start Date Expiration Date Visits Re quested Visits Authorized [id number] 1 1 Encounter Details Date Type Department Care Team (Late st Contact Info) Description 06/02/[address] [facility] Home Health - [address] [place] [address] Jewel Sow, [facility] TELEPHONE ENCOUNTER Social History Tobacco Use Types [...] you attend chur ch or samaritan services? Never 09/10/2021 Do you belong to any clubs o r organizations such as religious groups, unions, fraternal or athletic groups, or [...] slept in a long-term (including now)? No 09/10/2021 Comments No Sex and Gender Information Value Date Recorded Sex Assigned at Not on file Legal Sex Female 9:03 AM SETTER COLD ROLLING MACHINE Gender Identity Female 02/08/2020 6:39 PM CDT Sexual Orientation Not on file documented as of this encounter Plan of Treatment Upcoming Encounters Date Type Department Care Team (Latest Contact Info) Description 07/13/2024 9:00 AM SETTER COLD ROLLING MACHINE Hospital Encounter [facility] [address] [place] [address] Jaya Grier MD [address] [facility] [address] [facility] [address] [place] [address] 07/13/2024 9:00 AM SETTER COLD ROLLING MACHINE - 07/13/2024 9:30 AM SETTER COLD ROLLING MACHINE Surgery [facility] [address] [place] [address] Jaya Grier MD [address] [facility] [address] [place] [address] ESOPHAGOGASTRODUODENOSCOPY Scheduled Procedures Name Priority Associated Diagnoses Date/Ti me ESOPHAGOGASTRODUODENOSCOPY Anemia, unspecified type Gastritis without bleeding, unspecified chronicity, unspecified gastritis type 07/13/2024 9:00 AM SETTER COLD ROLLING MACHINE COLONOSCOPY Iron deficiency anemia due to chronic blood loss documented as of this encounter Visit Diagnoses Not on filedocumented in this encounter Care Teams Cable Television Program Director Relationship Specialty Start Date End Date Cherelle Corcoran MD PCP - General Family Medicine 08/30/19 Mark Queen MD Consulting Physician Infectious Diseases 01/10/20 documented as of this encounter
--- OUTSIDE RECORDS SUMMARY | 2024-07-04 04:13 | XMS_ITS | Encounter Summary ---
Author Organization [facility] Home Care [facility] es Address [address] [place] [address] Phone Care Team Providers Care Cellophaner Name Role Phone Cherelle Corcoran MD Primary Care Pro vider Mark Queen MD Unavailable [phone] Reason for Visit * Auth/Cert Specialty Diagnoses / Procedures Referred By Maryse lama Referred To Contact Referral ID Status Reason Start Date Expiration Date Visits Re quested Visits Authorized [id number] 1 1 Encounter Details Date Type Department Care Team (Late st Contact Info) Description 04/21/2022 Home Care Visit [facility] Home Health - [address] [place] [address] Diane Calderón RN TELEPHONE ENCOUNTER Social History Tobacco Use [...] you attend chur ch or pentecostalism services? Never 09/10/2021 Do you belong to [...] slept in a halfway (including now)? No 09/10/2021 Comments No Sex and Gender Information Value Date Recorded Sex Assigned at Not on file Legal Sex Female 9:03 AM ROOFER ASSISTANT Gender Identity Female 02/08/2020 6:39 PM CDT Sexual Orientation Not on file documented as of this encounter Plan of Treatment Upcoming Encounters Date Type Department Care Team (Latest Contact Info) Description 07/13/2024 9:00 AM ROOFER ASSISTANT Hospital Encounter [facility] [address] [place] [address] Jaya Grier MD [address] [facility] [address] [place] [address] 07/13/2024 9:00 AM ROOFER ASSISTANT - 07/13/2024 9:30 AM ROOFER ASSISTANT Surgery [facility] [address] [place] [address] Jaya Grier MD [facility] [address] [place] [address] ESOPHAGOGASTRODUODENOSCOPY Scheduled Procedures Name Priority Associated Diagnoses Date/Ti me ESOPHAGOGASTRODUODENOSCOPY Anemia, unspecified type Gastritis without bleeding, unspecified chronicity, unspecified gastritis type 07/13/2024 9:00 AM ROOFER ASSISTANT COLONOSCOPY Iron deficiency anemia due to chronic blood loss documented as of this encounter Visit Diagnoses Not on filedocumented in this encounter Care Teams Cellophaner Relationship Specialty Start Date End Date Cherelle Corcoran MD PCP - General Family Medicine 08/30/19 Mark Queen MD Consulting Physician Infectious Diseases 01/10/20 documented as of this encounter
--- OUTSIDE RECORDS SUMMARY | 2024-07-04 04:13 | XMS_ITS | Encounter Summary ---
Author Organization [facility] Home Care Servic es Address [address] [place] [address] Phone Care Team Providers Care Employment Instructional Associate Name Role Phone Cherelle Corcoran MD Primary Care Pro vider Mark Queen MD Unavailable [phone] Reason for Visit * Auth/Cert Specialty Diagnoses / Procedures Referred By Maryse t Referred To Contact Referral ID Status Reason Start Date Expiration Date Visits Re quested Visits Authorized [id number] 1 1 Encounter Details Date Type Department Care Team (Latest Contact Info) Description 05/06/2022 3:30 PM INTELLIGENCE CHIEF Home Care Visit [facility] Home Health [address] [place] [address] Brigid Crow, OT OT INITIAL EVALUATION Social History Tobacco [...] you attend chur ch or denominational services? Never 09/10/2021 Do you belong to [...] [place] [facility] ([facility] [place] No 09/10/2021 Comments No Sex and Gender Information Value Date Recorded Sex Assigned at Not on file Legal Sex Female 9:03 AM INTELLIGENCE CHIEF Gender Identity Female 02/08/2020 6:39 PM CDT Sexual Orientation Not on file documented as of this encounter Last Filed Vital Signs Vital Sign Reading Time Taken Comments Blood Pressure 132/80 05/06/2022 4:25 PM INTELLIGENCE CHIEF Pulse 76 05/06/2022 4:25 PM INTELLIGENCE CHIEF Temperature 36.7 ??C (98 ??F) 05/06/2022 4:25 PM INTELLIGENCE CHIEF Respiratory Rate 16 05/06/2022 4:25 PM INTELLIGENCE CHIEF Oxygen Saturation 96% 05/06/2022 4:25 PM INTELLIGENCE CHIEF Inhaled Oxygen Concentration - - Weight - - Height - - Body Mass Index - - documented in this encounter Miscellaneous Notes * Home Health Visit Narrative - Brigid Crow OT - 05/06/2022 4:30 PM INTELLIGENCE CHIEF Pt. referred for home health services following hospitalization 04/19-04/22/22. [facility] [place] [place] (does not access.) Bathroom has tub/shower combo. w/ shower chiar. Pt. denies any falls. Upon arrival pt answers the door amb w/o her walker, she states she does use most times but was in a hurry to get to the door. Pt. reports having supervision at all times but was home alone upon arrival and for entire visit. Pt. states that her dtr. works and that her granddtr. typically stays with her during that time. Noted cognitive deficits including decreased orientation, decreased attention to task at hand and decreased insight. Pt. marginally cooperative with evaluation activities. Pt. also w/ decreased mobility/balance, decreased right shoulder ROM, decreased silverio. skein straightener strength. Pt. w/ bilateral hand tremors, but denies significant impact on ADL/IADL including feeding. Pt's goals are to be able to complete more homemaking, to have increased endurance and increased UE strength/decreased tremors. LLIGENCE CHIEF documented in this encounter Plan of Treatment Upcoming Encounters Date Type Department Care Team (Latest Contact Info) Description 07/13/2024 9:00 AM INTELLIGENCE CHIEF Hospital Encounter [facility] GI Lab [address] [place] [address] Jaya Grier MD [address] [place] [address] 07/13/2024 9:00 AM INTELLIGENCE CHIEF - 07/13/2024 9:30 AM INTELLIGENCE CHIEF Surgery [facility] GI Lab [address] [place] [address] Jaya Grier MD [address] [place] [address] ESOPHAGOGASTRODUODENOSCOPY Scheduled Procedures Name Priority Associated Diagnoses Date/Ti me ESOPHAGOGASTRODUODENOSCOPY Anemia, unspecified type Gastritis without bleeding, unspecified chronicity, unspecified gastritis type 07/13/2024 9:00 AM INTELLIGENCE CHIEF COLONOSCOPY Iron deficiency anemia due to chronic [...] home health visit Disciplines: SN, PT, OT, MANAGER CREDIT COLLECTIONS, CONTRACT NEGOTIATOR, Skilled Disciplines Monitor patient's vital signs every home health visit. 04/17/2022 Active 1 goal linked to scheduled/documen bruno intervention 1 goal intervention scheduled/documen bruno in this visit Safety concerns Disciplines: Skilled Disciplines Alteration in safety 04/17/2022 Active 1 goal linked to scheduled/documen bruno intervention 2 goal interventions scheduled/documen bruno in this visit OT Impaired UE Function and/or Fine Motor Skills Disciplines: Occupational Therapy Impaired functional use of bilateral upper extremities 05/06/2022 Active - 2 problem interventions scheduled/documen bruno in this visit Goals Goal Associated Problem Outcome Goal Met? Visit Notes Patient receives care at the most appropriate care setting Description: Patient receives care at the most appropriate care setting. Homebound Status No Measure vital signs during every home health visit during episode of care Description: Home provider relations advocate to measure vital signs during every home [...] health visit during episode of care Completed Assess safety Description: Assess patient safety Problem:Safety concerns Goal:Demonstrate use of safety precautions Completed Instruct Fall Prevention Description: Instruct patient/caregiver in methods to prevent falls Problem:Safety concerns Goal:Demonstrate use of safety precautions Scheduled Home Exercise Program (HEP) Description: Instruct patient/caregiver and perform HEP. Problem:OT Impaired UE Function and/or Fine Motor Skills Completed Instructed in skein straightener strengthening exercise using rolled gripper socks for resistance to increase skein straightener strength/hand function. Pt. w/ good toleration/understandi ng. Therapeutic Exercise Description: Perform and progress therapeutic exercise. Problem:OT Impaired UE Function and/or Fine Motor Skills Completed Worked on silverio.ateral skein straightener strength w/ good toleration. documented in this encounter Care Teams Employment Instructional Associate Relationship Specialty Start Date End Date Cherelle Corcoran MD PCP - General Family Medicine 08/30/19 Mark Queen MD Consulting Physician Infectious Diseases 01/10/20 documented as of this encounter
--- OUTSIDE RECORDS SUMMARY | 2024-07-04 04:13 | XMS_ITS | Encounter Summary ---
Author Organization [facility] Home Care Servic es Address [address] [place] [address] Phone Care Team Providers Care Counter Clerk Tractor Parts Name Role Phone Cherelle Corcoran MD Primary Care Pro vider Mark Queen MD Unavailable [phone] Reason for Visit * Auth/Cert Specialty Diagnoses / Procedures Referred By Maryse lama Referred To Contact Referral ID Status Reason Start Date Expiration Date Visits Re quested Visits Authorized [id number] 1 1 Encounter Details Date Type Department Care Team (Late st Contact Info) Description 04/20/2022 Home Care Visit [facility] Home Health - [address] [place] [address] Diane Calderón RN TELEPHONE ENCOUNTER Social History [...] attend chur ch or islam services? Never 09/10/2021 Do you belong to [...] on file Legal Sex Female 9:03 AM MIG WELDER Gender Identity Female 02/08/2020 6:39 PM CDT Sexual Orientation Not on file documented as of this encounter Plan of Treatment Upcoming Encounters Date Type Department Care Team (Latest Contact Info) Description 07/13/2024 9:00 AM MIG WELDER Hospital Encounter [facility] GI Lab [address] [place] [address] Jaya Grier MD [address] [place] [address] 07/13/2024 9:00 AM MIG WELDER - 07/13/2024 9:30 AM MIG WELDER Surgery [facility] GI Lab [address] [place] [address] Jaya Grier MD [facility] [facility] [address] [place] [address] ESOPHAGOGASTRODUODENOSCOPY Scheduled Procedures Name Priority Associated Diagnoses Date/Ti me ESOPHAGOGASTRODUODENOSCOPY Anemia, unspecified type Gastritis without bleeding, unspecified chronicity, unspecified gastritis type 07/13/2024 9:00 AM MIG WELDER COLONOSCOPY Iron deficiency anemia due to chronic blood loss documented as of this encounter Visit Diagnoses Not on filedocumented in this encounter Care Teams Counter Clerk Tractor Parts Relationship Specialty Start Date End Date Cherelle Corcoran MD PCP - General Family Medicine 08/30/19 Mark Queen MD Consulting Physician Infectious Diseases 01/10/20 documented as of this encounter
--- OUTSIDE RECORDS SUMMARY | 2024-07-04 04:13 | XMS_ITS | Encounter Summary ---
Author Organization [facility] Home Care Servic es Address [address] [place] [address] Phone Care Team Providers Care Hollow Handle Knife Assembler Name Role Phone Cherelle Corcoran MD Primary Care Pro vider Mark Queen MD Unavailable [phone] Reason for Visit * Auth/Cert Specialty Diagnoses / Procedures Referred By Maryse lama Referred To Contact Referral ID Status Reason Start Date Expiration Date Visits Re quested Visits Authorized [id number] 1 1 Encounter Details Date Type Department Care Team (Late st Contact Info) Description 06/04/2022 Home Care Visit [facility] Home Health - [address] [place] [address] Jewel Sow, [facility] TELEPHONE ENCOUNTER Social History Tobacco Use [...] file Legal Sex Female 9:03 AM CLINICAL NURSE MANAGER Gender Identity Female 02/08/2020 6:39 PM CDT Sexual Orientation Not on file documented as of this encounter Plan of Treatment Upcoming Encounters Date Type Department Care Team (Latest Contact Info) Description 07/13/2024 9:00 AM CLINICAL NURSE MANAGER Hospital Encounter [facility] GI Lab [address] [place] [address] Jaya Grier MD [address] [facility] [address] [facility] [address] [place] [address] 07/13/2024 9:00 AM CLINICAL NURSE MANAGER - 07/13/2024 9:30 AM CLINICAL NURSE MANAGER Surgery [facility] GI Lab [address] [place] [address] Jaya Grier MD [address] [place] [address] ESOPHAGOGASTRODUODENOSCOPY Scheduled Procedures Name Priority Associated Diagnoses Date/Ti me ESOPHAGOGASTRODUODENOSCOPY Anemia, unspecified type Gastritis without bleeding, unspecified chronicity, unspecified gastritis type 07/13/2024 9:00 AM CLINICAL NURSE MANAGER COLONOSCOPY Iron deficiency anemia due to chronic blood loss documented as of this encounter Visit Diagnoses Not on filedocumented in this encounter Care Teams Hollow Handle Knife Assembler Relationship Specialty Start Date End Date Cherelle Corcoran MD PCP - General Family Medicine 08/30/19 Mark Queen MD Consulting Physician Infectious Diseases 01/10/20 documented as of this encounter
--- OUTSIDE RECORDS SUMMARY | 2024-07-04 04:13 | XMS_ITS | Encounter Summary ---
Author Organization [facility] Home Care Servic es Address [address] [place] [address] Phone Care Team Providers Care Glass Breaker Name Role Phone Cherelle Corcoran MD Primary Care Pro vider Mark Queen MD Unavailable [phone] Reason for Visit * Reason Comments Weakness - Generalized * Auth/Cert Specialty Diagnoses / Procedures Referred By Contflex t Referred To Contact Referral ID Status Reason Start Date Expiration Date Visits Re quested Visits Authorized [id number] 1 1 Encounter Details Date Type Department Care Team (Late st Contact Info) Description 05/26/2022 12:00 PM STONE SETTER Home Care Visit [facility] Health [address] [place] [address] Hanny Cruz, ANG PT HOME VISIT Social [...] often do you attend chur ch or gnosticism services? Never 09/10/2021 Do you belong to any clubs o r organizations such as adventism groups, unions, fraternal or athletic groups, or [...] on file Legal Sex Female 9:03 AM STONE SETTER Gender Identity Female 02/08/2020 6:39 PM CDT Sexual Orientation Not on file documented as of this encounter Last Filed Vital Signs Vital Sign Reading Time Taken Comments Blood Pressure 152/66 05/26/2022 12:31 PM STONE SETTER Pulse 67 05/26/2022 12:31 PM STONE SETTER Temperature 35.9 ??C (96.6 ??F) 05/26/2022 12:[address] Respiratory Rate 16 05/26/2022 12:31 PM STONE SETTER Oxygen Saturation 99% 05/26/2022 12:31 PM STONE SETTER Inhaled Oxygen Concentration - - Weight - - Height - - Body Mass Index - - documented in this encounter Miscellaneous Notes * Home Health Plan for Next Visit - Hanny Cruz PTA - 05/26/2022 11:59 AM CST Reason for today's visit to progress with standing balance, strengthening and gait Discuss plan of care with pt Discharge planning when appropriate Plan for next visit to work on balance, gait pt denies any falls and reports no pain in the back and neck but does have pain 7-8/10 in the hands, with tingling pt was able to tolerate balance activities today without reaching for the walker to balance herself pt is agreeable with poc E SETTER documented in this encounter Plan of Treatment Upcoming Encounters Date Type Department Care Team (Latest Contact Info) Description 07/13/2024 9:00 AM STONE SETTER Hospital Encounter [facility] GI Lab [address] [place] [address] Jaya Grier MD [facility] [place] [address] 07/13/2024 9:00 AM STONE SETTER - 07/13/2024 9:30 AM STONE SETTER Surgery [facility] GI Lab [address] [place] [address] Jaya Grier MD [address] [address] ESOPHAGOGASTRODUODENOSCOPY Scheduled Procedures Name Priority Associated Diagnoses Date/Ti me ESOPHAGOGASTRODUODENOSCOPY Anemia, unspecified type Gastritis without bleeding, unspecified chronicity, unspecified gastritis type 07/13/2024 9:00 AM STONE SETTER COLONOSCOPY Iron deficiency anemia due to [...] home health visit Disciplines: SN, PT, OT, PRODUCTION GRIP, REPAIRER TYPEWRITER, Skilled Disciplines Monitor patient's vital signs every [...] visit during episode of care Description: Home emergency department clinician to measure vital signs during every [...] precautions Completed pt instructed to use the walker at all times came to the door without the walker Assess safety Description: Assess patient safety Problem:Safety concerns Goal:Demonstrate use of safety precautions Completed Pain medication Instruction Description: Instruct patient/caregiver in high risk pain medications including common side effects, prescribed dosing schedule and contacting physician with questions or concerns. Problem:PT Medication Management Completed takes pain meds as needed Gait/Stair Training Description: Instruct patient/caregiver and perform gait/stair training. Problem:PT Impaired Functional Mobility/Balance Completed gait in the home with wheeled walker over level surfaces approx 100 ft with CGA asst pt leaning on walker, walker is too tall, she states one of her family members raised it so she could lean on it however recommend that the walker be lowered but the pt declines, constant cues to improve posture, stridelength and stepheight has tendency to shuffle fee, min sob noted Therapeutic Exercise Description: Perform therapeutic exercise, progressing as tolerated. Problem:PT Impaired Functional Mobility/Balance Completed see HEP comments Transfer training Description: Instruct patient/caregiver and perform transfer training. Problem:PT Impaired Functional Mobility/Balance Completed sit to from stand from recliner with constant cues for hand placement pt does have tendency to sit while holding onto the walker and to pull herself up with hands on the walker with cues does perform correctly Home Exercise Program (HEP) Description: Instruct patient/caregiver and perform HEP. Problem:PT Impaired Functional Mobility/Balance Completed while the pt was seated performed 15 reps each of heel toe raises, hip abf/add, laqs holding 3s each, hip abd/add with leg straight, hip and knee fallouts, glut sets pt does complete correctly with frequent cues pt ahs written hep to follow Balance Training/Activities Description: Instruct patient/caregiver and perform balance training activities. Problem:PT Impaired Functional Mobility/Balance Completed standing for 1 minute 15 seconds with arms down to side and narrow base of support, pt does sway and forward flexion at neck and hips but no lob and pt did not reach to grab onto the walker, staggered stance each leg for 30 seconds with arms down to side cues to improve posture had no lob gait balance with wheeled walker 4-/5 documented in this encounter Care Teams Glass Breaker Relationship Specialty Start Date End Date Cherelle Corcoran MD PCP - General Family Medicine 08/30/19 Mark Queen MD Consulting Physician Infectious Diseases 01/10/20 documented as of this encounter
--- OUTSIDE RECORDS SUMMARY | 2024-07-04 04:13 | XMS_ITS | Encounter Summary ---
Author Organization [facility] Home Care Servic es Address [address] [place] [address] Phone Care Team Providers Care Furnace Process Plant Operator Name Role Phone Cherelle Corcoran MD Primary Care Pro vider Mark Queen MD Unavailable [phone] Encounter Details Date Type Department Care Team (Late st Contact Info) Description 04/17/2022 Home Care Visit [facility] Home Health - [address] [place] [address] Yamilka Hoang, LULI TELEPHONE ENCOUNTER Social History Tobacco Use Types [...] slept in a fdc (including now)? No 09/10/2021 Comments No Sex and Gender Information Value Date Recorded Sex Assigned at Not on file Legal Sex Female 9:03 AM MAINTENANCE AND UTILITIES SUPERVISOR Gender Identity Female 02/08/2020 6:39 PM CDT Sexual Orientation Not on file documented as of this encounter Plan of Treatment Upcoming Encounters Date Type Department Care Team (Latest Contact Info) Description 07/13/2024 9:00 AM MAINTENANCE AND UTILITIES SUPERVISOR Hospital Encounter [facility] GI Lab [address] [place] [address] Jaya Grier MD [address] [facility] [address] [place] [address] 07/13/2024 9:00 AM MAINTENANCE AND UTILITIES SUPERVISOR - 07/13/2024 9:30 AM MAINTENANCE AND UTILITIES SUPERVISOR Surgery [facility] GI Lab [address] [place] [address] Jaya Grier MD [address] [facility] [address] [place] [address] ESOPHAGOGASTRODUODENOSCOPY Scheduled Procedures Name Priority Associated Diagnoses Date/Ti me ESOPHAGOGASTRODUODENOSCOPY Anemia, unspecified type Gastritis without bleeding, unspecified chronicity, unspecified gastritis type 07/13/2024 9:00 AM MAINTENANCE AND UTILITIES SUPERVISOR COLONOSCOPY Iron deficiency anemia due to chronic blood loss documented as of this encounter Visit Diagnoses Not on filedocumented in this encounter Care Teams Furnace Process Plant Operator Relationship Specialty Start Date End Date Cherelle Corcoran MD PCP - General Family Medicine 08/30/19 Mark Queen MD Consulting Physician Infectious Diseases 01/10/20 documented as of this encounter
--- OUTSIDE RECORDS SUMMARY | 2024-07-04 04:13 | XMS_ITS | Encounter Summary ---
Author Organization [facility] Healthcare Address [address] [place] [address] Care Team Providers Care Sonar Watchstander Name Role Phone Cherelle Corcoran MD Primary Care Pro vider Mark Queen MD Unavailable [phone] Encounter Details Date Type Department Care Team (Late st Contact Info) Description 05/13/2022 2:35 PM FINAL ASSEMBLY AND PACKING SUPERVISOR Lab [facility] Building [address] [address] STEFANO (acute kidney injury) (CMS/HCC) (HCC) Social [...] often do you attend chur ch or sikhism services? Never 09/10/2021 Do you belong to [...] on file Legal Sex Female 9:03 AM FINAL ASSEMBLY AND PACKING SUPERVISOR Gender Identity Female 02/08/2020 6:39 PM CDT Sexual Orientation Not on file documented as of this encounter Plan of Treatment Upcoming Encounters Date Type Department Care Team (Latest Contact Info) Description 07/13/2024 9:00 AM FINAL ASSEMBLY AND PACKING SUPERVISOR Hospital Encounter [facility] GI Lab [address] [place] [address] Jaya Grier MD [address] [place] [address] 07/13/2024 9:00 AM FINAL ASSEMBLY AND PACKING SUPERVISOR - 07/13/2024 9:30 AM FINAL ASSEMBLY AND PACKING SUPERVISOR Surgery [facility] GI Lab [address] [place] [address] Jaya Grier MD [address] [place] [address] ESOPHAGOGASTRODUODENOSCOPY Scheduled Procedures Name Priority Associated Diagnoses Date/Ti me ESOPHAGOGASTRODUODENOSCOPY Anemia, unspecified type Gastritis without bleeding, unspecified chronicity, unspecified gastritis type 07/13/2024 9:00 AM FINAL ASSEMBLY AND PACKING SUPERVISOR COLONOSCOPY Iron deficiency anemia due to chronic blood loss documented as of this encounter Procedures Procedure Name Priority Date/Time Associated Diagnosis Comments EGFR STAT 05/13/2022 2:45 PM FINAL ASSEMBLY AND PACKING SUPERVISOR STEFANO (acute kidney injury) (CMS/HCC) (HCC) BASIC METABOLIC PANEL STAT 05/13/2022 2:45 PM FINAL ASSEMBLY AND PACKING SUPERVISOR STEFANO (acute kidney injury) (CMS/HCC) (HCC) documented in this encounter Results * eGFR (05/13/2022 2:45 PM FINAL ASSEMBLY AND PACKING SUPERVISOR) eGFR 28 mL/min/1. 73 m2 NILSA RODRIGES [...] last reviewed 2021. Testing performed by: [address] [address] Blood 05/13/2022 2:45 PM FINAL ASSEMBLY AND PACKING SUPERVISOR 05/13/2022 3:09 PM FINAL ASSEMBLY AND PACKING SUPERVISOR us Cherelle Corcoran MD LAB BLOOD ORDERAB LES Final Result [facility] [place] [address] * (ABNORMAL) Basic metabolic panel (05/13/2022 2:45 PM FINAL ASSEMBLY AND PACKING SUPERVISOR) Sodium 143 135 - 145 mmol/L NILSA RODRIGES Comment:Testing performed by : [address] [address] Potassium, pl 4.2 3.3 - 4.9 mmol/L NILSA RODRIGES Comment:Testing performed by : [address] [address] Chloride 102 97 - 110 mmol/L NILSA RODRIGES Comment:Testing performed by : [address] [address] CO2 29 22 - 32 mmol/L NILSA RODRIGES Comment:Testing performed by : [address] [address] Anion gap 12 2 - 15 mmol/L NILSA RODRIGES Comment:Testing performed by : [address] [address] BUN 39(H) 8 - 25 mg/dL NILSA Comment:Testing performed by : [address] [address] Creatinine 1.90(H) 0.60 - 1.10 mg/dL NILSA Comment:Testing performed by : [address] [address] Glucose 150 70 - 199 mg/dL NILSA Comment: Interpretive [...] was last revised 2017. Testing performed by: [address] [address] Calcium 10.0 8.5 - 10.3 mg/dL NILSA Comment:Testing performed by : [address] [address] Blood 05/13/2022 2:45 PM FINAL ASSEMBLY AND PACKING SUPERVISOR 05/13/2022 3:09 PM FINAL ASSEMBLY AND PACKING SUPERVISOR us Cherelle Corcoran MD LAB BLOOD ORDERAB LES Final Result NILSA [address] [facility] Department of Laboratories [place], [place] [id number] documented in this encounter Visit Diagnoses Diagnosis STEFANO (acute kidney injury) (HCC) Anemia, unspecified type Gastritis without bleeding, unspecified chronicity, unspecified gastritis type documented in this encounter Care Teams Sonar Watchstander Relationship Specialty Start Date End Date Cherelle Corcoran MD PCP - General Family Medicine 08/30/19 Mark Queen MD Consulting Physician Infectious Diseases 01/10/20 documented as of this encounter
--- OUTSIDE RECORDS SUMMARY | 2024-07-04 04:13 | XMS_ITS | Encounter Summary ---
Author Organization [facility] Home Care Servic es Address [address] [place] [address] Phone Care Team Providers Care Hip Hop Dancer Name Role Phone Cherelle Corcoran MD Primary Care Pro vider Mark Queen MD Unavailable [phone] Reason for Visit * Auth/Cert Specialty Diagnoses / Procedures Referred By Maryse t Referred To Contact Referral ID Status Reason Start Date Expiration Date Visits Re quested Visits Authorized [id number] 1 1 Encounter Details Date Type Department Care Team (Late st Contact Info) Description 04/19/2022 Home Care Visit [facility] Home Health - [address] [place] [address] Yamilka Hoang, PT PT OASIS TRANSFER W/OUT DC Social History Tobacco Use Types Packs/Day Years [...] you attend chur ch or congregational services? Never 09/10/2021 Do you belong to [...] on file Legal Sex Female 9:03 AM LITERATURE PROFESSOR Gender Identity Female 02/08/2020 6:39 PM CDT Sexual Orientation Not on file documented as of this encounter Plan of Treatment Upcoming Encounters Date Type Department Care Team (Latest Contact Info) Description 07/13/2024 9:00 AM LITERATURE PROFESSOR Hospital Encounter [facility] [address] [place] [address] Jaya Grier MD [address] [facility] [address] [place] [address] 07/13/2024 9:00 AM LITERATURE PROFESSOR - 07/13/2024 9:30 AM LITERATURE PROFESSOR Surgery [facility] [address] [place] [address] Jaya Grier MD [facility] [facility] [address] [place] [address] ESOPHAGOGASTRODUODENOSCOPY Scheduled Procedures Name Priority Associated Diagnoses Date/Ti me ESOPHAGOGASTRODUODENOSCOPY Anemia, unspecified type Gastritis without bleeding, unspecified chronicity, unspecified gastritis type 07/13/2024 9:00 AM LITERATURE PROFESSOR COLONOSCOPY Iron deficiency anemia due to chronic blood loss documented as of this encounter Visit Diagnoses Not on filedocumented in this encounter Home Health Visit - Care Plan Visit Details Visit Type -PT OASIS Transfe r w/o DC Discipline -Physical Therapy Problems Problem Description Start Date Status Goals Interve ntions Homebound Status Disciplines: Skilled Disciplines Patient's homebound status 04/17/2022 Active 1 goal linked to scheduled/documen bruno intervention 1 goal intervention scheduled/documen bruno in this visit Monitor patient's vital signs every home health visit Disciplines: SN, PT, OT, CASTING COORDINATOR, FREIGHT HANDLER, Skilled Disciplines Monitor patient's vital signs every [...] Therapy Impaired functional mobility/balance 04/17/2022 Active - 2 problem interventions scheduled/maryjo carr in this visit Goals Goal Associated Problem Outcome Goal Met? Visit Notes Patient receives care at the most appropriate care setting Description: Patient receives care at the most appropriate care setting. Homebound Status No Measure vital signs during every home health visit during episode of care Description: Home individual small group instructor to measure vital signs during every home [...] health visit during episode of care Scheduled Instruct Fall Prevention Description: Instruct patient/caregiver in methods to prevent falls Problem:Safety concerns Goal:Demonstrate use of safety precautions Scheduled Assess safety Description: Assess patient safety Problem:Safety concerns Goal:Demonstrate use of safety precautions Scheduled Gait/Stair Training Description: Instruct patient/caregiver and perform gait/stair training. Problem:PT Impaired Functional Mobility/Balance Scheduled Therapeutic Exercise Description: Perform therapeutic exercise, progressing as tolerated. Problem:PT Impaired Functional Mobility/Balance Scheduled documented in this encounter Care Teams Hip Hop Dancer Relationship Specialty Start Date End Date Cherelle Corcoran MD PCP - General Family Medicine 08/30/19 Mark Queen MD Consulting Physician Infectious Diseases 01/10/20 documented as of this encounter
--- OUTSIDE RECORDS SUMMARY | 2024-07-04 04:13 | XMS_ITS | Encounter Summary ---
Author Organization [facility] Home Care Servic es Address [address] [place] [address] Phone Care Team Providers Care Steam Oven Operator Name Role Phone Cherelle Corcoran MD Primary Care Pro vider Mark Queen MD Unavailable [phone]- [phone] Reason for Visit * Auth/Cert Specialty Diagnoses / Procedures Referred By Maryse t Referred To Contact Referral ID Status Reason Start Date Expiration Date Visits Re quested Visits Authorized [id number] 1 1 Encounter Details Date Type Department Care Team (Late st Contact Info) Description 06/02/2022 9:00 AM ASSISTANT PROFESSOR OF EDUCATION Home Care Visit [facility] Home Health - [address] [place] [address] Jewel Sow, [facility] LIFT TEAM TECHNICIAN INITIAL EVAL Social History Tobacco Use Types Packs/Day Years [...] you attend chur ch or gnosticist services? Never 09/10/2021 Do you belong to [...] on file Legal Sex Female 9:03 AM ASSISTANT PROFESSOR OF EDUCATION Gender Identity Female 02/08/2020 6:39 PM CDT Sexual Orientation Not on file documented as of this encounter Miscellaneous Notes * Home Health Visit Narrative - Jewel Gambino, LIFT TEAM TECHNICIAN - 06/02/2022 9:03 AM ASSISTANT PROFESSOR OF EDUCATION LIFT TEAM TECHNICIAN PSYCHOSOCIAL SBAR Visit with pt and family completed on:06/02/22 ?? SITUATION: Pt is a 71 year old female admitted to home health due to patient c/o pain in hands, feet, decreased cervical mobility this date. Pertinent Medical History/Hospitalizations: PMH: htn, DM, GErD, CKD, anemia, schizoaffective disorder, amputation R toe, neuropathy, dementia, alzheimer's ?? BACKGROUND: Living situation: Lives with dtr in a town home with lower level Caregiver supports: Dtr primary caregiver services home, dtr works during the day. Grandkids are present when dtr at work. Family provides 24 hour supervision, assists with shopping, meals, transportation, showerassist and med management. Per granddaughter, family tried to place pt at a [facility] in [place] but pt was denied due to schizophrenia dx Physical status: Pt uses 2ww for ambulation, pt reports appetite good, sleep good? Relationships/back ground: , 3 kids, pt not a , pt caregiver services home Income/Assets: ??Pt collects social security, dtr manages finances. Able to afford all basic needs? Substance use: Patient denies ETOH, tobacco and illicit drug use ?? ASSESSMENT: Priorities/Goals: ??Per pt,?? to get myself back on track and to feel well . Pt shares that she is starting to feel better? Current Stressors: Pt denies stressors Assets:?? Pt has supportive family, granddaughter shares that dtr is legal guardian Orientation: Pt has Alzheimer's dx, slow responses to questions Mood/affect/coping skills: Pt has a dx of schizoaffective disorder. Pt endorses some depression. Ptsays he reads the Bible when she is feeling sadness. Pt denies past/current SI Pain: Pt c/o pain in the top knuckle of her right hands ?? RECOMMENDATIONS *Per granddaughter, family would like to place pt in a local NH. They wanted to to go to NH in [place] bot the facility denied pt due to Schizophrenia dx. LIFT TEAM TECHNICIAN to call dtr to discuss and LIFT TEAM TECHNICIAN will send out referrals for LTC placement *LIFT TEAM TECHNICIAN provided resource for free/donated DME equipment at [facility] [phone], [address] [facility] *LIFT TEAM TECHNICIAN provided information for Home Delivery Incontinence Supplies (HDIS) for Medicaid paid incontinence supplies ph: [phone] LIFT TEAM TECHNICIAN provided emotional support and encouragement to patient through conversation, active listening,and supportive presence. Patient verbalized understanding of all resources discussed. Patient had no other needs or concerns. LIFT TEAM TECHNICIAN encouraged patient to contact Home Care STANT PROFESSOR OF EDUCATION documented in this encounter Plan of Treatment Upcoming Encounters Date Type Department Care Team (Latest Contact Info) Description 07/13/2024 9:00 AM ASSISTANT PROFESSOR OF EDUCATION Hospital Encounter [facility] [address] [place] [address] Jaya Grier MD [facility] [facility] [address] [place] [address] 07/13/2024 9:00 AM ASSISTANT PROFESSOR OF EDUCATION - 07/13/2024 9:30 AM ASSISTANT PROFESSOR OF EDUCATION Surgery [facility] [address] [place] [address] Jaya Grier MD [address] [facility] [address] [place] [address] ESOPHAGOGASTRODUODENOSCOPY Scheduled Procedures Name Priority Associated Diagnoses Date/Ti il ESOPHAGOGASTRODUODENOSCOPY Anemia, unspecified type Gastritis without bleeding, unspecified chronicity, unspecified gastritis type 07/13/2024 9:00 AM ASSISTANT PROFESSOR OF EDUCATION COLONOSCOPY Iron deficiency anemia due to chronic blood loss documented as of this encounter Visit Diagnoses Not on filedocumented in this encounter Home Health Visit - Care Plan Visit Details Visit Type -LIFT TEAM TECHNICIAN Initial Eval uation Discipline -Medical Social Work Problems Problem Description Start Date Status Goals Interve ntions LIFT TEAM TECHNICIAN Resource Needs Disciplines: Social Work Deficit related to resources. 06/02/2022 Resolved on 06/02/2022 1 goal linked to scheduled/documen bruno intervention 1 goal intervention scheduled/documen bruno in this visit LIFT TEAM TECHNICIAN Emotional Support Needs Disciplines: Social Work Deficit related to emotional support. 06/02/2022 Resolved on 06/02/2022 1 goal linked to scheduled/documen bruno intervention 1 goal intervention scheduled/documen bruno in this visit Goals Goal Associated Problem Outcome Goal Met? Visit Notes Understanding of available resources Description: Resource needs met as evidenced by patient/family/ caregiver verbalizes understanding of available resources and ways to obtain these. LIFT TEAM TECHNICIAN Resource Needs Completed Yes Patient and family will verbalize understanding of all resources discussed. Increase emotional support Description: Patient/ family/ caregiver understands impact of illness as evidenced by verbalizing acceptance of the disease process. LIFT TEAM TECHNICIAN Emotional Support Needs Completed Yes LIFT TEAM TECHNICIAN provided emotional support and encouragement to patient through conversation, active listening and supportive presence Interventions Intervention Associated Problem/Goal Status Variance Visit Notes Provide assistance with identifying appropriate community resources Description: Provide assistance with identifying appropriate community resources Problem:LIFT TEAM TECHNICIAN Resource Needs Goal:Understanding of available resources Completed LIFT TEAM TECHNICIAN PSYCHOSOCIAL SBAR Visit with pt and family [...] with lower level Caregiver supports: Dtr primary caregiver services home, dtr works during the day. Grandkids are present when dtr at work. Family provides 24 hour supervision, assists with shopping, meals, transportation, shower assist and med management. Per granddaughter, family tried to place pt at a [place] in [place] but pt was denied due to schizophrenia dx Physical status: Pt uses 2ww for ambulation, pt reports appetite good, sleep good Relationships/back ground: , 3 kids, pt not a , pt caregiver services home Income/Assets: Pt collects social security, dtr manages [...] NH. They wanted to to go to [place] in [place] bot the facility denied pt due to Schizophrenia dx. LIFT TEAM TECHNICIAN to call dtr to discuss and LIFT TEAM TECHNICIAN will send out referrals for LTC placement *LIFT TEAM TECHNICIAN provided resource for free/donated DME equipment at [facility] [phone], [address] [place] [address] *LIFT TEAM TECHNICIAN provided information for Home Delivery Incontinence Supplies (HDIS) for Medicaid paid incontinence supplies ph: [phone] LIFT TEAM TECHNICIAN provided emotional support and encouragement to patient through conversation, active listening, and supportive presence. Patient verbalized understanding of all resources discussed. Patient had no other needs or concerns. LIFT TEAM TECHNICIAN encouraged patient to contact Home Care Provide Emotional Support Description: Provide emotional support Problem:LIFT TEAM TECHNICIAN Emotional Support Needs Goal:Increase emotional support Completed LIFT TEAM TECHNICIAN provided emotional support and encouragement to patient through conversation, active listening and supportive presence documented in this encounter Care Teams Steam Oven Operator Relationship Specialty Start Date End Date Cherelle Corcoran MD PCP - General Family Medicine 08/30/19 Mark Queen MD Consulting Physician Infectious Diseases 01/10/20 documented as of this encounter
--- OUTSIDE RECORDS SUMMARY | 2024-07-04 04:13 | XMS_ITS | Encounter Summary ---
Author Organization [facility] Medical Group Address [address] [facility] [address] [place] [address] Care Team Providers Care Cancer Registry Manager Name Role Phone Cherelle Corcoran MD Primary Care Pro vider Mark Queen MD Unavailable [phone] Reason for Visit * Reason Onset Date Comments Additional Services Or Orders 05/07/2022 Encounter Details Date Type Department Care Team ([facility] Contact Info) Description 05/07/2022 Telephone [facility] Primary Care [address] [facility] [address] [place] [address] Cherelle Corcoran MD [address] [place] [address] [address] [place] [address] Additional Services Or Orders Social History [...] in a nursing home (including now)? No 09/10/2021 Comments No Sex and Gender Information Value Date Recorded Sex Assigned at Not on file Legal Sex Female 9:03 AM ADULT EDUCATOR Gender Identity Female 02/08/2020 6:39 PM CDT Sexual Orientation Not on file documented as of this encounter Miscellaneous Notes * Telephone Encounter - Sandy Mota MA - 05/08/2022 8:50 AM CST Verbal order given to home health. All is taken care of. Thanks! T EDUCATOR * Telephone Encounter - Roseanna Mckenna - 05/07/2022 2:59 PM CST Additional Services or Orders Type of Service Requested:Occupational Therapy Duration/Number of Visits: 2x a week for 3 weeks Is a verbal order acceptable? yes Reason for Request (e.g. condition/symptom, date of COVID exposure if applicable): tremors in her hand Details Regarding Additional Services (e.g. type of home health, type of equipment, type of test, etc.): Where will services be performed? (if outside of the practice, facility name, address, phone/fax offacility): home Caller's Callback #: [phone] Additional Comments: She stated the verbal order can be left as a voicemail if necessary, the line is secure. Does message need to be routed?Yes-Action Needed T EDUCATOR documented in this encounter Plan of Treatment Upcoming Encounters Date Type Department Care Team (Latest Contact Info) Description 07/13/2024 9:00 AM ADULT EDUCATOR Hospital Encounter [facility] [address] [place] [address] Jaya Grier MD [address] [place] [address] 07/13/2024 9:00 AM ADULT EDUCATOR - 07/13/2024 9:30 AM ADULT EDUCATOR Surgery [facility] [address] [place] [address] Jaya Grier MD [address] [facility] [address] [place] [address] ESOPHAGOGASTRODUODENOSCOPY Scheduled Procedures Name Priority Associated Diagnoses Date/Ti me ESOPHAGOGASTRODUODENOSCOPY Anemia, unspecified type Gastritis without bleeding, unspecified chronicity, unspecified gastritis type 07/13/2024 9:00 AM ADULT EDUCATOR COLONOSCOPY Iron deficiency anemia due to chronic blood loss documented as of this encounter Visit Diagnoses Not on filedocumented in this encounter Care Teams Cancer Registry Manager Relationship Specialty Start Date End Date Cherelle Corcoran MD PCP - General Family Medicine 08/30/19 Mark Queen MD Consulting Physician Infectious Diseases 01/10/20 documented as of this encounter
--- OUTSIDE RECORDS SUMMARY | 2024-07-04 04:13 | XMS_ITS | Encounter Summary ---
Author Organization [facility] Home Care Servic es Address [address] [place] [address] Phone Care Team Providers Care Retail Maintenance Technician Name Role Phone Cherelle Corcoran MD Primary Care Pro vider Mark Queen MD Unavailable [phone] Reason for Visit * Reason Comments Weakness - Generalized * Auth/Cert Specialty Diagnoses / Procedures Referred By Maryse t Referred To Contact Referral ID Status Reason Start Date Expiration Date Visits Re quested Visits Authorized [id number] 1 1 Encounter Details Date Type Department Care Team (Late st Contact Info) Description 05/19/2022 10:30 AM SILVERWARE CLEANER Home Care Visit [facility] [address] [place] [address] Hanny Cruz, ANG PT HOME VISIT Social [...] often do you attend chur ch or mosque services? Never 09/10/2021 Do you belong to [...] slept in a assisted (including now)? No 09/10/2021 Comments No Sex and Gender Information Value Date Recorded Sex Assigned at Not on file Legal Sex Female 9:03 AM SILVERWARE CLEANER Gender Identity Female 02/08/2020 6:39 PM CDT Sexual Orientation Not on file documented as of this encounter Last Filed Vital Signs Vital Sign Reading Time Taken Comments Blood Pressure 142/72 05/19/2022 11:12 AM SILVERWARE CLEANER Pulse 78 05/19/2022 11:12 AM SILVERWARE CLEANER Temperature 36 ??C (96.8 ??F) 05/19/2022 11:12 AM SILVERWARE CLEANER Respiratory Rate 16 05/19/2022 11:12 AM SILVERWARE CLEANER Oxygen Saturation 95% 05/19/2022 11:12 AM SILVERWARE CLEANER Inhaled Oxygen Concentration - - Weight - - Height - - Body Mass Index - - documented in this encounter Miscellaneous Notes * Home Health Plan for Next Visit - Hanny Cruz PTA - 05/19/2022 10:37 AM CST Reason for today's visit to progress with gait balance and strengthening Discuss plan of care with pt and rose present at times during visit Discharge planning when appropriate Plan for next visit to progress with gait in and out of the home pt deneis any falls, has assistance in the home most of the day, do recommend pt have supervision at all times pt reports pain fluctuates and takes acetaminophen as needed pt is agreeable with poc ERWARE CLEANER documented in this encounter Plan of Treatment Upcoming Encounters Date Type Department Care Team (Latest Contact Info) Description 07/13/2024 9:00 AM SILVERWARE CLEANER Hospital Encounter [facility] [address] [place] [address] Jaya Grier MD [address] [facility] [address] [place] [address] 07/13/2024 9:00 AM SILVERWARE CLEANER - 07/13/2024 9:30 AM SILVERWARE CLEANER Surgery [facility] [address] [place] [address] [place] [address] [place] [address] [place] [address] ESOPHAGOGASTRODUODENOSCOPY Scheduled Procedures Name Priority Associated Diagnoses Date/Ti me ESOPHAGOGASTRODUODENOSCOPY Anemia, unspecified type Gastritis without bleeding, unspecified chronicity, unspecified gastritis type 07/13/2024 9:00 AM SILVERWARE CLEANER COLONOSCOPY Iron deficiency anemia due to [...] home health visit Disciplines: SN, PT, OT, LEAD NURSE, AUTO CLUTCH SPECIALIST, Skilled Disciplines Monitor patient's vital signs [...] visit during episode of care Description: Home battery parts assembler to measure vital signs during every home [...] Functional Mobility/Balance Completed gait in the home for approx 80 ft over level surfaces using wheeled walker with constant cues to improve posture and to decrease pressure on arms of the walker exhibits forward head flexion and flexion at hips, decreased stridelength and stepheight some sob noted with gait activities Therapeutic Exercise Description: Perform therapeutic exercise, progressing as tolerated. Problem:PT Impaired Functional Mobility/Balance Completed see HEP comments Transfer training Description: Instruct patient/caregiver and perform transfer training. Problem:PT Impaired Functional Mobility/Balance Completed sit to from stand with moderate effort, cues to push up with arms and then to reach back as sitting Home Exercise Program (HEP) Description: Instruct patient/caregiver and perform HEP. Problem:PT Impaired Functional Mobility/Balance Completed while the pt is seated exercises x 10 reps each including heel raises, toe raises, hip abd/add, laqs holding 3 seconds each, hip flexion with knee flexion and then glut sets constant cues to complete correctly but pt is able to sit forward on chair and maintain balance as performing pt has written hep for seated and supine exercises which is performing some on her own Balance Training/Activities Description: Instruct patient/caregiver and perform balance training activities. Problem:PT Impaired Functional Mobility/Balance Completed while the pt is standing pt stood for 30 seconds arms down to side and feet slightly apart, reaching for the walker and then stood 45 seconds x 1 pt is unsteady leans forward flexion at neck and hips then as standing with arms supported 1 minute 25 seconds 5 reps each of cervical rotation and flexion/extension gait balance with wheeled walker 4-/5 documented in this encounter Care Teams Retail Maintenance Technician Relationship Specialty Start Date End Date Cherelle Corcoran MD PCP - General Family Medicine 08/30/19 Mark Queen MD Consulting Physician Infectious Diseases 01/10/20 documented as of this encounter
--- OUTSIDE RECORDS SUMMARY | 2024-07-04 04:13 | XMS_ITS | Encounter Summary ---
Author Organization [facility] Address [address] [place] [address] Phone Care Team Providers Care Food Mixer Name Role Phone Cherelle Corcoran MD Primary Care Pro vider Mark Queen MD Unavailable [phone] Reason for Visit * Reason Comments Weakness - Generalized * Auth/Cert Specialty Diagnoses / Procedures Referred By Contflex t Referred To Contact Referral ID Status Reason Start Date Expiration Date Visits Re quested Visits Authorized [id number] 1 1 Encounter Details Date Type Department Care Team (Late st Contact Info) Description 05/06/2022 12:30 PM MANAGER CHILD Home Care Visit [facility] [address] [place] [address] Hanny Cruz, ANG PT HOME VISIT Social [...] file Legal Sex Female 9:03 AM MANAGER CHILD Gender Identity Female 02/08/2020 6:39 PM CDT Sexual Orientation Not on file documented as of this encounter Last Filed Vital Signs Vital Sign Reading Time Taken Comments Blood Pressure 160/80 05/06/2022 1:48 PM MANAGER CHILD Pulse 85 05/06/2022 1:48 PM MANAGER CHILD Temperature 35.6 ??C (96 ??F) 05/06/2022 1:48 PM MANAGER CHILD Respiratory Rate 16 05/06/2022 1:48 PM MANAGER CHILD Oxygen Saturation 97% 05/06/2022 1:48 PM MANAGER CHILD Inhaled Oxygen Concentration - - Weight - - Height - - Body Mass Index - - documented in this encounter Miscellaneous Notes * Home Health Plan for Next Visit - Hanny Cruz PTA - 05/06/2022 12:52 PM CST Reason for today's visit to progress with standing activities Discuss plan of care with pt, daughter left when P.T arrived Discharge planning when appropriate Plan for next visit to progress with gait, balance strengthening pt is agreeable with poc, she reports is performing her supine exercises each day GER CHILD documented in this encounter Plan of Treatment Upcoming Encounters Date Type Department Care Team (Latest Contact Info) Description 07/13/2024 9:00 AM MANAGER CHILD Hospital Encounter [facility] [address] [place] [address] Jaya Grier MD [facility] [facility] [address] [place] [address] 07/13/2024 9:00 AM MANAGER CHILD - 07/13/2024 9:30 AM MANAGER CHILD Surgery [facility] [address] [place] [address] Jaya Grier MD [address] [place] [address] ESOPHAGOGASTRODUODENOSCOPY Scheduled Procedures Name Priority Associated Diagnoses Date/Ti me ESOPHAGOGASTRODUODENOSCOPY Anemia, unspecified type Gastritis without bleeding, unspecified chronicity, unspecified gastritis type 07/13/2024 9:00 AM MANAGER CHILD COLONOSCOPY Iron deficiency anemia due to chronic [...] home health visit Disciplines: SN, PT, OT, TOWER CLIMBER, NURSE SEXUAL ASSAULT, Skilled Disciplines Monitor patient's vital signs every [...] visit during episode of care Description: Home rn research to measure vital signs during every home [...] concerns Goal:Demonstrate use of safety precautions Completed instructed to use the wheeled walker at all times Assess safety Description: Assess patient safety Problem:Safety concerns Goal:Demonstrate use of safety precautions Completed Gait/Stair Training Description: Instruct patient/caregiver and perform gait/stair training. Problem:PT Impaired Functional Mobility/Balance Completed gait in the home over level surfaces approx 120 ft using wheeled walker and supervision with constant cues to improve posture, leans heavily on walker and flexion noted at neck and hips also decreased stridelength and stepheight pt does exhibit min sob with activity Therapeutic Exercise Description: Perform therapeutic exercise, progressing as tolerated. Problem:PT Impaired Functional Mobility/Balance Completed see HEP comments Transfer training Description: Instruct patient/caregiver and perform transfer training. Problem:PT Impaired Functional Mobility/Balance Completed transfers from lower recliner with mod effort cues to scoot forward and to push up with silverio ues then when sitting cues to reach back and lower herself slowly Home Exercise Program (HEP) Description: Instruct patient/caregiver and perform HEP. Problem:PT Impaired Functional Mobility/Balance Completed while the pt was seated performed 10 reps each of heel toe raises, hip flexion with knee flexion, glut sets, laqs holding 3 seconds each with constant cues to complete correctly also cues to improve posture as performing sitting forward in chair while supine pt performs anklepumping, quad sets holding 3 seconds each, hip abd/add and slr with cues to engage quad before completing then glut sets and heelslides x 10 reps of each frequent cues to complete correctly Balance Training/Activities Description: Instruct patient/caregiver and perform balance training activities. Problem:PT Impaired Functional Mobility/Balance Completed instructed the pt on standing static balance and pt was able to tolerate 1 minute with arms down to side, feet shoulder width apart pt leans forward at neck and hips with cues to improve unable to achieve full trunk extension then working with pt on standing 30 seconds arms down to side and turning head from side to side x 5 reps gait balance with wheeled walker 4-/5 documented in this encounter Care Teams Food Mixer Relationship Specialty Start Date End Date Cherelle Corcoran MD PCP - General Family Medicine 08/30/19 Mark Queen MD Consulting Physician Infectious Diseases 01/10/20 documented as of this encounter
--- OUTSIDE RECORDS SUMMARY | 2024-07-04 04:13 | XMS_ITS | Encounter Summary ---
Author Organization [facility] Address [address] [facility] [place] [address] Care Team Providers Care Hotel Recreational Facilities Manager Name Role Phone Cherelle Corcoran MD Primary Care Pro vider Mark Queen MD Unavailable [phone] Reason for Visit * Reason Comments Successful Phone Call [facility] Emergency Department Encounter Details Date Type Department Care Team (Late st Contact Info) Description 05/12/2022 JOY ED Outreach [facility] Accountable Care Organization [address] [place] [address] Xenia Padilla LPN [address] [place] [address] Social History Tobacco Use Types Packs/Day Years [...] often do you attend chur ch or holiness services? Never 09/10/2021 Do you belong to [...] on file Legal Sex Female 9:03 AM PLATE PUT IN WORKER Gender Identity Female 02/08/2020 6:39 PM CDT Sexual Orientation Not on file documented as of this encounter Progress Notes * Xenia Padilla LPN - 05/12/2022 9:56 AM CST Care Industrial Automation Engineer contacted patient's daughter, Areli, regarding patients, recent ED visit at [facility] on 05/08/2022 - 05/09/2022 (5 hours) for Fall, History of diabetes mellitus, type II, History of chronic kidney disease, History of Parkinson's disease, and History of schizophrenia. Areli states that patient is doing well since coming home from the emergency department and does report that they did picking belt operator her newly prescribed antibiotic consisting of cephalexin 500 mg oral 4 times daily. She reportsthat patient does have another urinary tract infection and states that patient is taking her antibiotic as advised. She does report that patient was in bed and decided to get out of bed in the middleof the night with no socks on and states that patient fell out of bed. She reports that This is whythey did take patient to the emergency department. Reviewed medication changes from ED and signs/symptoms of complications/worsening symptoms related to their visit diagnosis. ED Follow-up appointment was not scheduled due to no appointment availability. Areli educated about same day sick appts at PCP office and s/s to report to physician. Areli verbalized understanding of information presented. No additional needs identified at this time. Provided my contact information for future needs. Xenia Padilla LPN, ACO Care Industrial Automation Engineer [facility] Accountable Care Organization / [facility] Contact E-Mail - [email or web address] or [phone] E PUT IN WORKER documented in this encounter Plan of Treatment Upcoming Encounters Date Type Department Care Team (Latest Contact Info) Description 07/13/2024 9:00 AM PLATE PUT IN WORKER Hospital Encounter [facility] [address] [place] [address] Jaya Grier MD [address] [place] [address] 07/13/2024 9:00 AM PLATE PUT IN WORKER - 07/13/2024 9:30 AM PLATE PUT IN WORKER Surgery [facility] [address] [place] [address] Jaya Grier MD [address] [address] [place] [address] ESOPHAGOGASTRODUODENOSCOPY Scheduled Procedures Name Priority Associated Diagnoses Date/Ti me ESOPHAGOGASTRODUODENOSCOPY Anemia, unspecified type Gastritis without bleeding, unspecified chronicity, unspecified gastritis type 07/13/2024 9:00 AM PLATE PUT IN WORKER COLONOSCOPY Iron deficiency anemia due to chronic blood loss documented as of this encounter Visit Diagnoses Not on filedocumented in this encounter Care Teams Hotel Recreational Facilities Manager Relationship Specialty Start Date End Date Cherelle Corcoran MD PCP - General Family Medicine 08/30/19 Mark Queen MD Consulting Physician Infectious Diseases 01/10/20 documented as of this encounter
--- OUTSIDE RECORDS SUMMARY | 2024-07-04 04:13 | XMS_ITS | Encounter Summary ---
Author Organization [facility] Home Care Servic es Address [address] [place] [address] Phone Care Team Providers Care Buyer Grain Name Role Phone Cherelle Corcoran MD Primary Care Pro vider Mark Queen MD Unavailable [phone] Reason for Visit * Auth/Cert Specialty Diagnoses / Procedures Referred By Maryse t Referred To Contact Referral ID Status Reason Start Date Expiration Date Visits Re quested Visits Authorized [id number] 1 1 Encounter Details Date Type Department Care Team (Latest Contact Info) Description 05/06/2022 1:30 PM STENOTYPE MACHINE OPERATOR Home Care Visit [facility] Home Health [address] [place] [address] Leslie Bahena RN SN INITIAL EVALUATION Social History Tobacco Use Types [...] on file Legal Sex Female 9:03 AM STENOTYPE MACHINE OPERATOR Gender Identity Female 02/08/2020 6:39 PM CDT Sexual Orientation Not on file documented as of this encounter Last Filed Vital Signs Vital Sign Reading Time Taken Comments Blood Pressure 132/80 05/06/2022 3:48 PM STENOTYPE MACHINE OPERATOR Pulse 76 05/06/2022 3:48 PM STENOTYPE MACHINE OPERATOR Temperature 36.7 ??C (98 ??F) 05/06/2022 3:48 PM STENOTYPE MACHINE OPERATOR Respiratory Rate 16 05/06/2022 3:48 PM STENOTYPE MACHINE OPERATOR Oxygen Saturation 96% 05/06/2022 3:48 PM STENOTYPE MACHINE OPERATOR Inhaled Oxygen Concentration - - Weight - - Height - - Body Mass Index - - documented in this encounter Plan of Treatment Upcoming Encounters Date Type Department Care Team (Latest Contact Info) Description 07/13/2024 9:00 AM STENOTYPE MACHINE OPERATOR Hospital Encounter [facility] [address] [place] [address] Jaya Grier MD [address] [place] [address] [address] [place] [address] 07/13/2024 9:00 AM STENOTYPE MACHINE OPERATOR - 07/13/2024 9:30 AM STENOTYPE MACHINE OPERATOR Surgery [facility] [address] [place] [address] Jaya Grier MD [facility] [facility] [address] [place] [address] ESOPHAGOGASTRODUODENOSCOPY Scheduled Procedures Name Priority Associated Diagnoses Date/Ti pa ESOPHAGOGASTRODUODENOSCOPY Anemia, unspecified type Gastritis without bleeding, unspecified chronicity, unspecified gastritis type 07/13/2024 9:00 AM STENOTYPE MACHINE OPERATOR COLONOSCOPY Iron deficiency anemia due to chronic blood loss documented as of this encounter Visit Diagnoses Not on filedocumented in this encounter Home Health Visit - Care Plan Visit Details Visit Type -SN Initial Evalu ation Discipline -Jail Problems Problem Description Start Date Status Goals Interve ntions Homebound Status Disciplines: Skilled Disciplines Patient's homebound status 04/17/2022 Active 1 goal linked to scheduled/documen bruno intervention 1 goal intervention scheduled/documen bruno in this visit Monitor patient's vital signs every home health visit Disciplines: SN, PT, OT, CHICKEN SEXER, HEALTH AND WELLNESS INSTRUCTOR, Skilled Disciplines Monitor patient's vital signs every home health visit. 04/17/2022 Active 1 goal linked to scheduled/documen bruno intervention 1 goal intervention scheduled/documen bruno in this visit Infection Prevention Disciplines: Skilled Disciplines Infection Prevention 04/17/2022 Active 1 goal linked to scheduled/documen bruno intervention 2 goal interventions scheduled/documen burno in this visit Safety concerns Disciplines: Skilled [...] visit during episode of care Description: Home culinary instructor to measure vital signs during every [...] health visit during episode of care Completed Aspects of Care Description: Instruct patient/caregiver on universal precautions and home infection control measures Problem:Infection Prevention Goal:Verbalize signs of infection Completed Educate Patient on Infection Prevention Description: [...] concerns Goal:Demonstrate use of safety precautions Completed documented in this encounter Care Teams Buyer Grain Relationship Specialty Start Date End Date Cherelle Corcoran MD PCP - General Family Medicine 08/30/19 Mark Queen MD Consulting Physician Infectious Diseases 01/10/20 documented as of this encounter
--- OUTSIDE RECORDS SUMMARY | 2024-07-04 04:13 | XMS_ITS | Encounter Summary ---
Author Organization [facility] Address [address] [place] [address] Care Team Providers Care Final Finisher Forging Dies Name Role Phone Cherelle Corcoran MD Primary Care Pro vider Mark Queen MD Unavailable [phone] Reason for Visit * Reason Onset Date Comments Medical Question/Miscellaneous 05/22/2022 Call Back 05/22/2022 Encounter Details Date Type Department Care Team ([facility] Contact Info) Description 05/22/2022 Telephone [facility] Primary Care [facility] [facility] [address] [place] [address] Cherelle Corcoran MD [address] [place] [address] [address] [place] [address] Medical Question/Miscellaneous; Call Back Social History Tobacco Use Types [...] on file Legal Sex Female 9:03 AM AGING DEPARTMENT SUPERVISOR Gender Identity Female 02/08/2020 6:39 PM CDT Sexual Orientation Not on file documented as of this encounter Ordered Prescriptions Prescription Sig Dispense Quantity Refills Last Filled Start Date End Date insulin glargine 100 unit/mL (3 mL) pen for injectionIndicatio ns:Type 2 diabetes mellitus with diabetic neuropathy, with long-term current use of insulin (HCC) Inject 34 Units under the skin nightly 45 mL 4 05/26/2022 3 documented in this encounter Miscellaneous Notes * Telephone Encounter - Sandy Mota MA - 05/26/2022 2:33 PM CST Lmov for areli letting her know injection pens were sent in. Thanks! G DEPARTMENT SUPERVISOR * Telephone Encounter - Dana Levin - 05/26/2022 1:27 PM CST Call Back Caller???s Concern: Pt daughter, areli, called and wanted to confirm that the order was placed for the Lantus Pins. Per the encounter Ok per Dr Corcoran to place order. Not seeing that the order was placed for the refill. Please advise pt if this is filled as no refill for this medication on the vials. Caller???s Call back #: [phone] Does message need to be routed? Yes-Action Needed G DEPARTMENT SUPERVISOR * Telephone Encounter - Cherelle Corcoran MD - 05/26/2022 12:03 PM CST Ok to place order G DEPARTMENT SUPERVISOR * Telephone Encounter - Sandy Mota MA - 05/26/2022 11:59 AM CST Spoke to pt daughter and let her know that information was sent. Also, pt daughter stated that she went to the pharmacy and lantus vials were sent in and not pen injectors. She stated pt is on 34 units pen nightly. Please clarify G DEPARTMENT SUPERVISOR * Telephone Encounter - Morenita Mathur - 05/23/2022 4:53 PM CST Call Back Caller???s Concern: Patients daughter called is wanting to know if ROWDY was received from bryan. Idid not see any new information on this. Patients daughter would like a call back. Caller???s Call back #: [phone] Does message need to be routed? Yes-Action Needed G DEPARTMENT SUPERVISOR * Telephone Encounter - Augusta Hawthorne - 05/22/2022 4:16 PM CST Medical Question/Miscellaneous Caller???s Concern: Patient's daughter called to verify fax number. Caller???s Call back #: [phone] Does message need to be routed?No G DEPARTMENT SUPERVISOR documented in this encounter Plan of Treatment Upcoming Encounters Date Type Department Care Team (Latest Contact Info) Description 07/13/2024 9:00 AM AGING DEPARTMENT SUPERVISOR Hospital Encounter [facility] [address] [place] [address] Jaya Grier MD [address] [place] [address] [address] [place] [address] 07/13/2024 9:00 AM AGING DEPARTMENT SUPERVISOR - 07/13/2024 9:30 AM AGING DEPARTMENT SUPERVISOR Surgery [facility] [address] [place] [address] Jaya Grier MD [facility] [address] [place] [address] ESOPHAGOGASTRODUODENOSCOPY Scheduled Procedures Name Priority Associated Diagnoses Date/Ti me ESOPHAGOGASTRODUODENOSCOPY Anemia, unspecified type Gastritis without bleeding, unspecified chronicity, unspecified gastritis type 07/13/2024 9:00 AM AGING DEPARTMENT SUPERVISOR COLONOSCOPY Iron deficiency anemia due to chronic blood loss documented as of this encounter Visit Diagnoses Diagnosis Type 2 diabetes mellitus with diabetic neuropathy, with long-term current use of insulin (HCC)- Primary Anemia, unspecified type Gastritis without bleeding, unspecified chronicity, unspecified gastritis type documented in this encounter Discontinued Medications Medication Sig Discontinue Reason Start Date End Da te insulin glargine (LANTUS, SEMGLEE) 100 unit/mL vial for injectionIndications:Michelle betes Mellitus Inject 27 Units under the skin nightly 05/26/2022 05/26/2022 documented as of this encounter Care Teams Final Finisher Forging Dies Relationship Specialty Start Date End Date Cherelle Corcoran MD PCP - General Family Medicine 08/30/19 Mark Queen MD Consulting Physician Infectious Diseases 01/10/20 documented as of this encounter
--- OUTSIDE RECORDS SUMMARY | 2024-07-04 04:13 | XMS_ITS | Encounter Summary ---
Author Organization [facility] Home Care Servic es Address [address] [place] [address] Phone Care Team Providers Care Video Tape Transferrer Name Role Phone Cherelle Corcoran MD Primary Care Pro vider Mark Queen MD Unavailable [phone] Brandie Callejas Unavailable Unavail able Xenia Padilla LPN Unavailable [phone] Melania Lee RN Unavailable [phone] Reason for Visit * Auth/Cert Specialty Diagnoses / Procedures Referred By Contac t Referred To Contact Referral ID Status Reason Start Date Expiration Date Visits Re quested Visits Authorized [id number] 1 1 Encounter Details Date Type Department Care Team (Latest Contact Info) Description 04/24/2022 1:00 PM CDT Home Care Visit [facility] Home Health - [place] [id number] [facility] [address] [place], [place] [id number] Yamilka Hoang, PT PT OASIS RESUMPTION OF CARE Social History Tobacco Use Types [...] you attend chur ch or religion services? Never 08/05/2022 Do you belong to [...] on file Legal Sex Female 9:03 AM INTERLIBRARY LOAN SPECIALIST Gender Identity Female 02/08/2020 6:39 PM CDT Sexual Orientation Not on file documented as of this encounter Last Filed Vital Signs Vital Sign Reading Time Taken Comments Blood Pressure 156/72 04/24/2022 12:56 PM CDT Pulse 68 04/24/2022 12:56 PM CDT Temperature 35.8 ??C (96.5 ??F) 04/24/2022 12:56 PM C DT Respiratory Rate 16 04/24/2022 12:56 PM CDT Oxygen Saturation 96% 04/24/2022 12:56 PM CDT Inhaled Oxygen Concentration - - Weight - - Height - - Body Mass Index - - documented in this encounter Miscellaneous Notes * Home Health Visit Narrative - Yamilka Hoang, PT - 04/24/2022 12:26 PM CDT Pt was hospitalized at [facility] 04/19 - 04/22 d/t UTI, new Rx for ampicillin for 5 days, pt startedtaking on 04/22. Pt denies any falls. Upon arrival pt answers the door amb w/o her walker, she states she does use most times but was in a hurry to get to the door. Pt typically has assist at all times, pt's granddaughter had to run to the store, and no cg present during EYAD visit. Pt notes worsening tremor, maxim in R hand. OT referral requested. Pt will benefit to continue PT 2x3 weeks for strengthening, transfers, gait training, balance, steps, HEP instruction. Pt and cgs are agreeable to POC. * Quality Review - Salvador Faith - 04/24/2022 12:19 PM CDT Select Data Recommendations: M1028 - Comorbidities and Co-existing Conditions ??? Check all that apply See OASIS Guidance Manualfor a complete list of relevant ICD-10 codes Documented Answer: Recommendation: 2 - Diabetes Mellitus M1810 - Current Ability to Dress Upper Body safely (with or without dressing aids) including undergarments, pullovers, front-opening shirts and blouses, managing zippers, buttons, and snaps Documented Answer: 1 - Able to dress upper body without assistance if clothing is laid out or handed to the patient. Recommendation: 2 - Someone must help the patient put on upper body clothing. Reason: Clinical documentation reflects a MAHC-10 score greater than or equal to 4-patient is at risk for falls. For the purposes of this OASIS item, assistance includes verbal cuing and/or supervision. M2030 - Management of Injectable Medications: Patient's current ability to prepare and take all prescribed injectable medications reliably and safely, including administration of correct dosage at the appropriate times/intervals. Excludes IV medications. Documented Answer: 0 - Able to independently take the correct medication(s) and proper dosage(s) atthe correct times. Recommendation: NA - No injectable medications prescribed. Reason: Clinical documentation reflects the patient is at risk for falls. For the purposes of this OASIS item, the patient must be able to safely retrieve medication from where it is routinely stored, draw up the correct dose accurately using aseptic technique, inject in an appropriate site using correct technique and dispose of the syringe properly. Comments: no injectable meds noted 08/05/2022 SUZY [place] Chart review and recommendations completed by: JACQUES Mancia, COS-C, HCS-D RLIBRARY LOAN SPECIALIST documented in this encounter Plan of Treatment Upcoming Encounters Date Type Department Care Team (Latest Contact Info) Description 07/13/2024 9:00 AM INTERLIBRARY LOAN SPECIALIST Hospital Encounter [facility] [address] [place] [address] Jaya Grier MD [address] [place] [address] 07/13/2024 9:00 AM INTERLIBRARY LOAN SPECIALIST - 07/13/2024 9:30 AM INTERLIBRARY LOAN SPECIALIST Surgery [facility] [address] [place] [address] Jaya Grier MD [address] [facility] [address] [place] [address] ESOPHAGOGASTRODUODENOSCOPY Scheduled Procedures Name Priority Associated Diagnoses Date/Ti me ESOPHAGOGASTRODUODENOSCOPY Anemia, unspecified type Gastritis without bleeding, unspecified chronicity, unspecified gastritis type 07/13/2024 9:00 AM INTERLIBRARY LOAN SPECIALIST COLONOSCOPY Iron deficiency anemia due to chronic blood loss documented as of this encounter Visit Diagnoses Not on filedocumented in this encounter Additional Health Concerns Infection Onset Date Last Indicated Resolved Time COVID: Suspected 05/08/2022 05/08/2022 05/08/2022 4:26 PM INTERLIBRARY LOAN SPECIALIST COVID: Suspected 06/19/2022 06/19/2022 06/19/2022 12:37 PM INTERLIBRARY LOAN SPECIALIST COVID: Suspected 08/01/2022 08/01/2022 08/01/2022 2:28 PM INTERLIBRARY LOAN SPECIALIST documented as of this encounter Home Health Visit - Care Plan Visit Details Visit Type -PT OASIS Resumpt ion Discipline -Physical Therapy Problems Problem Description Start Date Status Goals Interve ntions Homebound Status Disciplines: Skilled Disciplines Patient's homebound status 04/17/2022 Active 1 goal linked to scheduled/documen bruno intervention 1 goal intervention scheduled/documen bruno in this visit Monitor patient's vital signs every home health visit Disciplines: SN, PT, OT, SENIOR SUPPLY CHAIN ANALYST, DIRECTOR DIGITAL MARKETING, Skilled Disciplines Monitor patient's vital signs every [...] Therapy Impaired functional mobility/balance 04/17/2022 Active - 4 problem interventions scheduled/documen bruno in this visit Goals Goal Associated Problem Outcome Goal Met? Visit Notes Patient receives care at the most appropriate care setting Description: Patient receives care at the most appropriate care setting. Homebound Status No Measure vital signs during every home health visit during episode of care Description: Home floor covering contractor to measure vital signs during every home [...] training. Problem:PT Impaired Functional Mobility/Balance Completed Gait x 75 ft in home using 2WW Pt w significant flexed hip posture and offloading through B UE on walker; w intermittent VC pt able to improve upright posture and dec offloading; TC to relax shoulder girdle. Cueing to look ahead at path rather than down at floor. PT instructed pt to use w/walker at all times w gait; pt verb agreement Therapeutic Exercise Description: Perform therapeutic exercise, progressing as tolerated. Problem:PT Impaired Functional Mobility/Balance Completed See HEP comments Transfer training Description: Instruct patient/caregiver and perform transfer training. Problem:PT Impaired Functional Mobility/Balance Completed Sit to stand from recliner chair to 2WW pt relies on maximal assist B UE pushing up w B LE braced against chair, w significant effort Pt transfers into bed by stepping up onto step stool leading w R LE then crawling onto hands and knees, then rolls to sidelying > supine sideways across bed. Pt able to reposition in bed w significant effort, PT instructed on flexing hips and knees to use B LE to assist w repositioning. Supine > SItting w Min (A), then Min (A) to scoot fwd to edge of bed. Home Exercise Program (HEP) Description: Instruct patient/caregiver and perform HEP. Problem:PT Impaired Functional Mobility/Balance Completed Instructed pt on HEP and performed supine: Ankle pumps, Quad set, Heel slide, Glute set, Hip abd/add, SAQ. Performed x 10 reps ea B LE. Pt req moderate cueing for correct return. Pt provided w written HEP instructions, instructed to perform 2-3x/day; pt verb understanding however no cg present this visit for instruction. documented in this encounter Care Teams Video Tape Transferrer Relationship Specialty Start Date End Date Cherelle Corcoran MD PCP - General Family Medicine 08/30/19 Mark Queen MD Consulting Physician Infectious Diseases 01/10/20 Brandie Callejas Patient Radio Antenna Installer 06/20/22 06/22/22 Xenia Padilla LPN [address] [facility] [address] [place] [address] Book Sewing Machine Operator 06/24/22 06/24/22 Melania Lee RN [address] [facility] [address] [place] [address] Book Sewing Machine Operator 07/22/22 08/21/22 documented as of this encounter
--- OUTSIDE RECORDS SUMMARY | 2024-07-04 04:13 | XMS_ITS | Encounter Summary ---
Author Organization [facility] Home Care Servic es Address [address] [place] [address] Phone Care Team Providers Care Marketing Services Manager Name Role Phone Cherelle Corcoran MD Primary Care Pro vider Mark Queen MD Unavailable [phone] Reason for Visit * Auth/Cert Specialty Diagnoses / Procedures Referred By Maryse t Referred To Contact Referral ID Status Reason Start Date Expiration Date Visits Re quested Visits Authorized [id number] 1 1 Encounter Details Date Type Department Care Team (Late st Contact Info) Description 04/17/2022 Home Care Visit [facility] Home Health - [address] [place] [address] Monserrat Bermudez, PT SBAR-START OF CARE/RESUMPTION Social History Tobacco Use Types Packs/Day Years [...] on file Legal Sex Female 9:03 AM GENERATOR MAN Gender Identity Female 02/08/2020 6:39 PM CDT Sexual Orientation Not on file documented as of this encounter Plan of Treatment Upcoming Encounters Date Type Department Care Team (Latest Contact Info) Description 07/13/2024 9:00 AM GENERATOR MAN Hospital Encounter [facility] [address] [place] [address] Jaya rGier MD [address] [place] [address] [address] [place] [address] 07/13/2024 9:00 AM GENERATOR MAN - 07/13/2024 9:30 AM GENERATOR MAN Surgery [facility] [address] [place] [address] Jaya Grier MD [address] [place] [address] [address] [place] [address] ESOPHAGOGASTRODUODENOSCOPY Scheduled Procedures Name Priority Associated Diagnoses Date/Ti me ESOPHAGOGASTRODUODENOSCOPY Anemia, unspecified type Gastritis without bleeding, unspecified chronicity, unspecified gastritis type 07/13/2024 9:00 AM GENERATOR MAN COLONOSCOPY Iron deficiency anemia due to chronic blood loss documented as of this encounter Visit Diagnoses Not on filedocumented in this encounter Care Teams Marketing Services Manager Relationship Specialty Start Date End Date Cherelle Corcoran MD PCP - General Family Medicine 08/30/19 Mark Queen MD Consulting Physician Infectious Diseases 01/10/20 documented as of this encounter
--- OUTSIDE RECORDS SUMMARY | 2024-07-04 04:13 | XMS_ITS | Encounter Summary ---
Author Organization [facility] Home Care Servic es Address [address] [place] [address] Phone Care Team Providers Care Bush And Vine Farmer Fruit Crops Name Role Phone Cherelle Corcoran MD Primary Care Pro vider Mark Queen MD Unavailable [phone] Reason for Visit * Reason Comments Weakness - Generalized * Auth/Cert Specialty Diagnoses / Procedures Referred By Maryse t Referred To Contact Referral ID Status Reason Start Date Expiration Date Visits Re quested Visits Authorized [id number] 1 1 Encounter Details Date Type Department Care Team (Late st Contact Info) Description 05/21/2022 10:30 AM FOREST TECHNOLOGY PROFESSOR Home Care Visit [facility] [address] [place] [address] Hanny Cruz, ANG PT HOME VISIT Social [...] often do you attend chur ch or orthodox services? Never 09/10/2021 Do you belong to [...] on file Legal Sex Female 9:03 AM FOREST TECHNOLOGY PROFESSOR Gender Identity Female 02/08/2020 6:39 PM CDT Sexual Orientation Not on file documented as of this encounter Last Filed Vital Signs Vital Sign Reading Time Taken Comments Blood Pressure 148/60 05/21/2022 10:48 AM FOREST TECHNOLOGY PROFESSOR Pulse 83 05/21/2022 10:48 AM FOREST TECHNOLOGY PROFESSOR Temperature 35.9 ??C (96.6 ??F) 05/21/2022 10:[address] Respiratory Rate 16 05/21/2022 10:48 AM FOREST TECHNOLOGY PROFESSOR Oxygen Saturation 96% 05/21/2022 10:48 AM FOREST TECHNOLOGY PROFESSOR Inhaled Oxygen Concentration - - Weight - - Height - - Body Mass Index - - documented in this encounter Miscellaneous Notes * Home Health Plan for Next Visit - Hanny Cruz PTA - 05/21/2022 10:54 AM CST Reason for today's visit to progress with gait, balance, strengthening Discuss plan of care with ptrose present but did not participate in session Discharge planning when appropriate Plan for next visit to see pt to work on gait in and out of home pt declines today has 2 small steps to exit the home but reports is too cold for her pt states that she fell yesterday in the kitchen that she was using walker and her legs got week and she feel reports soreness in the back, and buttocks pt did answer the door when therapy arrived and did not have her walker instructed the pt to use the walker at all times and do recommend supervision pt is more unsteady with activities today recommend to rose to make sure to supervise pt pt is agreeable with poc ST TECHNOLOGY PROFESSOR documented in this encounter Plan of Treatment Upcoming Encounters Date Type Department Care Team (Latest Contact Info) Description 07/13/2024 9:00 AM FOREST TECHNOLOGY PROFESSOR Hospital Encounter [facility] [address] [place] [address] Jaya Grier MD [facility] [address] [address] 07/13/2024 9:00 AM FOREST TECHNOLOGY PROFESSOR - 07/13/2024 9:30 AM FOREST TECHNOLOGY PROFESSOR Surgery [facility] [address] [place] [address] Jaya Grier MD [address] [facility] [address] [address] ESOPHAGOGASTRODUODENOSCOPY Scheduled Procedures Name Priority Associated Diagnoses Date/Ti me ESOPHAGOGASTRODUODENOSCOPY Anemia, unspecified type Gastritis without bleeding, unspecified chronicity, unspecified gastritis type 07/13/2024 9:00 AM FOREST TECHNOLOGY PROFESSOR COLONOSCOPY Iron deficiency anemia due to [...] home health visit Disciplines: SN, PT, OT, APPRENTICE PLUMBER, PLATFORM INSPECTOR, Skilled Disciplines Monitor patient's vital signs every [...] visit during episode of care Description: Home chandelier maker to measure vital signs during every home [...] of safety precautions Completed pt instructed to have supervision at all times and to use the walker at all times to avoid wearing night gowns that drag on the floor to avoid getting tangled up in Assess safety Description: Assess patient safety Problem:Safety concerns Goal:Demonstrate use of safety precautions Completed Gait/Stair Training Description: Instruct patient/caregiver and perform gait/stair training. Problem:PT Impaired Functional Mobility/Balance Completed gait in the home with wheeled walker over level surfaces approx 85 ft with CGA asst pt leaning on [...] tolerated. Problem:PT Impaired Functional Mobility/Balance Completed see hep comments Transfer training Description: Instruct patient/caregiver and perform transfer training. Problem:PT Impaired Functional Mobility/Balance Completed sit to from stand with constant cues to reach back for chair before sitting and then to push up with arms when standing Home Exercise Program (HEP) Description: Instruct patient/caregiver and perform HEP. Problem:PT Impaired Functional Mobility/Balance Completed pt was instructed on seated hep which included 10 reps of heel toe raises, hip abd/add, laqs holding 3 seconds with moderate extensor lag, hip flexion with knee flexion, glut sets then while standing 5 reps of marching and heel toe raises pt is unsteady CGA for safety pt reports she is performing supine exercises each day pt has written hep for all exercises however will need asst to complete standing exercises Balance Training/Activities Description: Instruct patient/caregiver and perform balance training activities. Problem:PT Impaired Functional Mobility/Balance Completed while the pt was standing stood for 30 seconds unsupported with feet apart arms down to side and pt leans forward at neck and hips constant cues to improve however pt is not able to improve extension then stood for 1 minute supported with constant cues to improve posture gait balance 4-/5 with wheeled walker documented in this encounter Care Teams Bush And Vine Farmer Fruit Crops Relationship Specialty Start Date End Date Cherelle Corcoran MD PCP - General Family Medicine 08/30/19 Mark Queen MD Consulting Physician Infectious Diseases 01/10/20 documented as of this encounter
--- OUTSIDE RECORDS SUMMARY | 2024-07-04 04:13 | XMS_ITS | Encounter Summary ---
Author Organization [facility] Healthcare Address [address] [place] [address] Care Team Providers Care Printer Floor Covering Assistant Name Role Phone Cherelle Corcoran MD Primary Care Pro vider Mark Queen MD Unavailable [phone] Reason for Referral * Diagnostic Imaging (Routine) - Closed Specialty Diagnoses / Procedures Referred By Maryse lama Referred To Contact Diagnoses Acute cough Procedures XR Chest Pa Lateral 2 Vw Cherelle Corcoran MD Phone: tel: fax: [address] [phone] Referral ID Status Reason Start Date Expiration Date Visits Re quested Visits Authorized [id number] Closed 04/29/2022 05/29/2023 1 1 RIG ROUGHNECK Reason for Visit * Diagnostic Imaging (Routine) - Closed Specialty Diagnoses / Procedures Referred By Maryse lama Referred To Contact Diagnoses Acute cough Procedures XR Chest Pa Lateral 2 Vw Cherelle Corcoran MD Phone: tel: fax: [address] [address] Referral ID Status Reason Start Date Expiration Date Visits Re quested Visits Authorized [id number] Closed 04/29/2022 05/29/2023 1 1 Encounter Details Date Type Department Care Team (Latest Contact Info) Description 04/29/2022 4:35 PM OIL RIG ROUGHNECK - 04/29/2022 11:59 PM OIL RIG ROUGHNECK Hospital Encounter [facility] Diagnostic Imaging [address] [place] [address] Acute cough Discharge Disposition: Discharge to home [...] you attend chur ch or zoroastrian services? Never 09/10/2021 Do you belong to any clubs o r organizations such as yazidi groups, unions, fraternal or athletic groups, or [...] slept in a residential (including now)? No 09/10/2021 Comments No Sex and Gender Information Value Date Recorded Sex Assigned at Not on file Legal Sex Female 9:03 AM OIL RIG ROUGHNECK Gender Identity Female 02/08/2020 6:39 PM CDT [...] neuropathy, with long-term current use of insulin ([facility]) USE TO INJECT BASAGLAR EVERY [...] neuropathy, with long-term current use of insulin ([facility]) Inject 0.5 mL (0.75 mg total) under [...] flash glucose scanning reader (FreeStyle Madhav 2 Bandon) miscIndications:Ty pe 2 diabetes mellitus with diabetic neuropathy, with long-term current use of insulin ([facility]) Use to continually monitor glucose 1 each 10/01/2021 3 flash glucose sensor (FreeStyle Madhav 2 Sensor) kitIndications:Typ e 2 diabetes mellitus with diabetic neuropathy, with long-term current use of insulin ([facility]) Use to continually monitor glucose, [...] (Latest Contact Info) Description 07/13/2024 9:00 AM OIL RIG ROUGHNECK Hospital Encounter [facility] [address] [place] [address] Jaya Grier MD [address] [place] [address] [address] [place] [address] 07/13/2024 9:00 AM OIL RIG ROUGHNECK - 07/13/2024 9:30 AM OIL RIG ROUGHNECK Surgery [facility] [address] [place] [address] Jaya Grier MD [address] [place] [address] [address] [place] [address] ESOPHAGOGASTRODUODENOSCOPY Scheduled Procedures Name Priority Associated Diagnoses Date/Ti nv ESOPHAGOGASTRODUODENOSCOPY Anemia, unspecified type Gastritis without bleeding, unspecified chronicity, unspecified gastritis type 07/13/2024 9:00 AM OIL RIG ROUGHNECK COLONOSCOPY Iron deficiency anemia due to chronic blood loss documented as of this encounter Procedures Procedure Name Priority Date/Time Associated Diagnosis Comments XR CHEST PA LATERAL 2 VIEWS Schedule RA, Read RA (Appt Today, Awaiting Results) 04/29/2022 4:55 PM OIL RIG ROUGHNECK Acute cough documented in this encounter Results * XR Chest Pa Lateral 2 Vw (04/29/2022 4:55 PM OIL RIG ROUGHNECK) Anatomical Region Laterality Modality Body, Chest N/A Computed Radiogr aphy 04/29/2022 5:53 PM OIL RIG ROUGHNECK Narrative 04/29/2022 5:55 PM OIL RIG ROUGHNECK EXAM DESCRIPTION: ?? XR CHEST PA LATERAL [...] PM T: ??04/29/2022 5:55 PM Report ID: [id number] Reading Location: ??[id number] Procedure Note Rafaela Paulino MD - 04/29/2022 [...] Rafaela Paulino M.D. TW: FAIZAN Report ID: [id number] Reading Location: [id number] Cherelle Corcoran MD IMG XR PROCEDURES Final Result documented in this encounter Visit Diagnoses Diagnosis Acute cough Anemia, unspecified type Gastritis without bleeding, unspecified chronicity, unspecified gastritis type documented in this encounter Care Teams Printer Floor Covering Assistant Relationship Specialty Start Date End Date Cherelle Corcoran MD PCP - General Family Medicine 08/30/19 Mark Queen MD Consulting Physician Infectious Diseases 01/10/20 documented as of this encounter
--- OUTSIDE RECORDS SUMMARY | 2024-07-04 04:13 | XMS_ITS | Encounter Summary ---
Author Organization [facility] Home Care Servic es Address [address] [place] [address] Phone Care Team Providers Care Sales Order Administrator Name Role Phone Cherelle Corcoran MD Primary Care Pro vider Mark Queen MD Unavailable [phone] Encounter Details Date Type Department Care Team (Late st Contact Info) Description 04/17/2022 Plan of Care Documentation [facility] Home Health - [address] [place] [address] Social History Tobacco Use Types [...] you attend chur ch or zoroastrianism services? Never 09/10/2021 Do you belong to [...] in a skilled nursing (including now)? No 09/10/2021 Comments No Sex and Gender Information Value Date Recorded Sex Assigned at Not on file Legal Sex Female 9:03 AM VIDEOTAPE OPERATOR Gender Identity Female 02/08/2020 6:39 PM CDT Sexual Orientation Not on file documented as of this encounter Plan of Treatment Upcoming Encounters Date Type Department Care Team (Latest Contact Info) Description 07/13/2024 9:00 AM VIDEOTAPE OPERATOR Hospital Encounter [facility] [address] [place] [address] Jaya Grier MD [address] [facility] [address] [place] [address] 07/13/2024 9:00 AM VIDEOTAPE OPERATOR - 07/13/2024 9:30 AM VIDEOTAPE OPERATOR Surgery [facility] [address] [place] [address] Jaya Grier MD [address] [facility] [address] [place] [address] ESOPHAGOGASTRODUODENOSCOPY Scheduled Procedures Name Priority Associated Diagnoses Date/Ti me ESOPHAGOGASTRODUODENOSCOPY Anemia, unspecified type Gastritis without bleeding, unspecified chronicity, unspecified gastritis type 07/13/2024 9:00 AM VIDEOTAPE OPERATOR COLONOSCOPY Iron deficiency anemia due to chronic blood loss documented as of this encounter Visit Diagnoses Not on filedocumented in this encounter Care Teams Sales Order Administrator Relationship Specialty Start Date End Date Cherelle Corcoran MD PCP - General Family Medicine 08/30/19 Mark Queen MD Consulting Physician Infectious Diseases 01/10/20 documented as of this encounter
--- OUTSIDE RECORDS SUMMARY | 2024-07-04 04:13 | XMS_ITS | Encounter Summary ---
Author Organization [facility] Address [address] [place] [address] Care Team Providers Care Tractor Trailer Technician Name Role Phone Duane Callahan MD Primary Care Pro vider Mark Queen MD Unavailable [phone] Encounter Details Date Type Department Care Team (Late st Contact Info) Description 04/22/2022 Telephone [facility] Primary Care [address] [facility] [address] [place] [address] Duane Callahan MD [facility] [address] [place] [address] Social History Tobacco Use Types [...] week 09/10/2021 How often do you attend [facility] or worship services? Never 09/10/2021 Do you [...] on file Legal Sex Female 9:03 AM CLIENT RESOLUTION SPECIALIST Gender Identity Female 02/08/2020 6:39 PM CDT Sexual Orientation Not on file documented as of this encounter Miscellaneous Notes * Addendum Note - Duane Callahan MD - 05/02/2022 6:37 AM CLIENT RESOLUTION SPECIALIST Addended by: DUANE CALLAHAN on: 05/02/2022 06:37 AM Modules accepted: Orders NT RESOLUTION SPECIALIST * Addendum Note - Sandy Mota MA - 04/28/2022 4:32 PM CSTAddended by: SANDY MOTA on: 04/28/2022 04:32 PM Modules accepted: Orders NT RESOLUTION SPECIALIST * Telephone Encounter - Duane Callahan MD - 04/22/2022 5:[address] Ok to [address] order * Telephone Encounter - Martha Grover - 04/22/2022 4:24 PM CDT Did you put the order in? I see one in there but it looks like is a different DX and looks like it is only for PT. * Telephone Encounter - Sandy Mota MA - 04/22/2022 4:06 PM CDT This has already been submitted. Can you please look into this * Telephone Encounter - Shannen Escalona - 04/22/2022 3:27 PM CDT Yamilka @ [facility] is requesting orders for PT, OT & nursing. She will be discharged from [facility]. She was admitted due to a UTI last week. Please advise. Thanks. documented in this encounter Plan of Treatment Upcoming Encounters Date Type Department Care Team (Latest Contact Info) Description 07/13/2024 9:00 AM CLIENT RESOLUTION SPECIALIST Hospital Encounter [facility] [address] [place] [address] [place] [address] [place] [address] [address] [place] [address] 07/13/2024 9:00 AM CLIENT RESOLUTION SPECIALIST - 07/13/2024 9:30 AM CLIENT RESOLUTION SPECIALIST Surgery [facility] Lab [address] [place] [address] Jaya Grier MD [facility] [address] [place] [address] ESOPHAGOGASTRODUODENOSCOPY Scheduled Procedures Name Priority Associated Diagnoses Date/Ti me ESOPHAGOGASTRODUODENOSCOPY Anemia, unspecified type Gastritis without bleeding, unspecified chronicity, unspecified gastritis type 07/13/2024 9:00 AM CLIENT RESOLUTION SPECIALIST COLONOSCOPY Iron deficiency anemia due to chronic blood loss documented as of this encounter Visit Diagnoses Diagnosis Physical deconditioning- Primary Muscular wasting and disuse atrophy, not elsewhere classified Anemia, unspecified type Gastritis without bleeding, unspecified chronicity, unspecified gastritis type documented in this encounter Care Teams Tractor Trailer Technician Relationship Specialty Start Date End Date Duane Callahan MD PCP - General Family Medicine 08/30/19 Mark Queen MD Consulting Physician Infectious Diseases 01/10/20 documented as of this encounter
--- OUTSIDE RECORDS SUMMARY | 2024-07-04 04:13 | XMS_ITS | Encounter Summary ---
Author Organization [facility] Address [address] [place] [address] Care Team Providers Care Station Inspector Name Role Phone Cherelle Corcoran MD Primary Care Pro vider Mark Queen MD Unavailable [phone] Reason for Visit * Reason Comments Hypertension Follow-up Hyperlipidemia Encounter Details Date Type Department Care Team (Late st Contact Info) Description 06/04/2022 3:30 PM NUTRITIONAL SERVICES COOK Office Visit [facility] Cardiology [address] [place] [address] Santo Vail MD [address] [facility] [address] [place] [address] Palpitations (Primary Dx) Social History Tobacco Use Types [...] attend chur ch or roman catholic services? Never 09/10/2021 Do you belong to [...] on file Legal Sex Female 9:03 AM NUTRITIONAL SERVICES COOK Gender Identity Female 02/08/2020 6:39 PM CDT Sexual Orientation Not on file documented as of this encounter Last Filed Vital Signs Vital Sign Reading Time Taken Comments Blood Pressure 136/52 06/04/2022 4:22 PM NUTRITIONAL SERVICES COOK Pulse 68 06/04/2022 4:22 PM NUTRITIONAL SERVICES COOK Temperature - - Respiratory Rate - - Oxygen Saturation 95% 06/04/2022 4:22 PM NUTRITIONAL SERVICES COOK Inhaled Oxygen Concentration - - Weight - - Height - - Body Mass Index - - documented in this encounter Progress Notes * Santo Vail MD - 06/04/2022 3:30 PM CST Images from the original note were not included. Cardiology Return Clinic Visit HPI: We are seeing Barbara Chakraborty in clinic today for initial office visit. Patient is a 71 y.o. female with past medical history notable for diabetes and hypertension now presenting to on license of [facility] care. She has been having [...] and generalized weakness. Also recent hospitalization at [facility] with pneumonia. She was also diagnosed with left lower extremity DVT and started on Eliquis. No chest pain or dyspnea. More energy. 06/04/2022 Not having any significant cardiac issues. Review of Systems: 14 point ROS was [...] toe amp/ foot debridement/ Dr. Anat Pleayo Current Outpatient Medications: acetaminophen, 650 mg, oral, Q6H PRN albuterol HFA, 2 puff, inhalation, Q4H PRN apixaban, 5 mg, oral, Q12H atorvastatin, 20 mg, oral, Daily BD Arlyn 2nd Gen Pen Needle, USE TO INJECT BASAGLAR EVERY NIGHT AT BEDTIME benztropine, 1 mg, oral, Nightly blood pressure monitor, Check BP as instructed carvediloL, 3.125 mg, oral, BID with meals (bkfst, dinner) conner.stocking,thigh,reg,med, Wear as much as possible Trulicity, 0.75 mg, subcutaneous, Weekly (Patient taking differently: 1.75 mg, subcutaneous, Weekly) famotidine, 10 mg, oral, Nightly ferrous sulfate, 65 mg of elemental iron, oral, Daily with breakfast FreeStyle Madhav 2 [employer], Use to continually monitor glucose FreeStyle Madhav 2 Sensor, Use to continually monitor glucose, change every 14 days furosemide, 40 mg, oral, BID (Patient taking differently: 40 mg, oral, 2 times daily, rx# [id number], Indications: hypertension) insulin glargine, 34 Units, subcutaneous, Nightly insulin lispro, 12 Units, subcutaneous, TID with meals lancets, Check blood sugar up to 3 times a day lidocaine, 1 patch, transdermal, Daily Blood Pressure Cuff, Use to check blood pressure daily multivitamin with minerals, 1 tablet, oral, Daily OneTouch Verio test strips, TEST 3 TO 4 TIMES DAILY pregabalin, 150 mg, oral, Nightly risperiDONE, 2 mg, oral, Nightly syringe with needle, insulin (INSULIN SYRINGE-NEEDLE U-100 [facility]), 3 times a day valsartan, 40 mg, oral, Daily capsaicin, Apply topically 2 (two) times a day (Patient not taking: Reported on 02/12/2022) ketoconazole, Apply topically 2 (two) times a day (Patient not taking: Reported on 02/12/2022) polyethylene glycol, 17 g, oral, Daily (Patient not taking: Reported on 02/12/2022) No Known Allergies Social History Tobacco Use Smoking status: Never Smoker Smokeless tobacco: Never Used Substance Use Topics Alcohol use: Not Currently Family History Problem Relation Age of Onset Stomach cancer Father Physical Exam: Vitals BP 136/52 (BP Location: Left arm, Patient Position: Sitting) Pulse 68 SpO2 95% General: Pleasant female in no acute distress. [...] Review: Sodium Date Value Ref Range Status 05/13/2022 143 135 - 145 mmol/L Final Comment: Testing performed by: [address] [address] 05/08/2022 144 135 - 145 mmol/L Final 04/01/2022 141 135 - 145 mmol/L Final Comment: Testing performed by: [address] [address] Potassium, pl Date Value Ref Range Status 05/13/2022 4.2 3.3 - 4.9 mmol/L Final Comment: Testing performed by: [address] [address] 05/08/2022 4.3 3.3 - 4.9 mmol/L Final 04/01/2022 4.6 3.3 - 4.9 mmol/L Final Comment: Testing performed by: [address] [address] Chloride Date Value Ref Range Status 05/13/2022 102 97 - 110 mmol/L Final Comment: Testing performed by: [address] [address] 05/08/2022 106 97 - 110 mmol/L Final 04/01/2022 102 97 - 110 mmol/L Final Comment: Testing performed by: [address] [address] CO2 Date Value Ref Range Status 05/13/2022 29 22 - 32 mmol/L Final Comment: Testing performed by: [address] [address] 05/08/2022 28 22 - 32 mmol/L Final 04/01/2022 29 22 - 32 mmol/L Final Comment: Testing performed by: [address] [address] BUN Date Value Ref Range Status 05/13/2022 39 (H) 8 - 25 mg/dL Final Comment: Testing performed by: [facility], [address] [place] [address], [place]., [address] 05/08/2022 48 (H) 8 - 25 mg/dL Final 04/01/2022 39 (H) 8 - 25 mg/dL Final Comment: Testing performed by: [address], [place]., [address] Creatinine Date Value Ref Range Status 05/13/2022 1.90 (H) 0.60 - 1.10 mg/dL Final Comment: Testing performed by: [address], [place]., [address] 05/08/2022 2.44 (H) 0.60 - 1.10 mg/dL Final 04/01/2022 2.00 (H) 0.60 - 1.10 mg/dL Final Comment: Testing performed by: [address], [place]., [address] eGFR Date Value Ref Range Status 05/13/2022 28 mL/min/1.73 m2 Final Comment: Interpretive Data Reference [...] was last reviewed 2021. Testing performed by: [address], [place]., [address] 05/08/2022 21 (L) 90 - 130 mL/min/1.73 m2 Final Comment: Interpretive Data Reference [...] of Race in Diagnosing Kidney Disease, JASN 1). The CKD-EPI equation should not be used for patients with unstable renal function and has not been validated in children and those over 70. Current interpretive data was last reviewed 2021. 04/01/2022 26 mL/min/1.73 m2 Final Comment: Interpretive Data Reference [...] was last reviewed 2021. Testing performed by: [facility], [address] [place] [address]., [address] Glucose Date Value Ref Range Status 05/13/2022 150 70 - 199 mg/dL Final Comment: Interpretive [...] was last revised 2017. Testing performed by: [address] [address] Alk phos Date Value Ref Range Status 05/08/2022 129 40 - 130 Units/L Final 04/01/2022 137 (H) 40 - 130 Units/L Final Comment: Testing performed by: [address] [address] 11/15/2021 104 40 - 130 Units/L Final Bilirubin, total Date Value Ref Range Status 05/08/2022 0.2 0.1 - 1.2 mg/dL Final 04/01/2022 0.2 0.1 - 1.2 mg/dL Final Comment: Testing performed by: [address] [address] 11/15/2021 0.2 0.1 - 1.2 mg/dL Final Bilirubin, direct Date Value Ref Range Status 08/07/2021 <0.2 0.1 - 0.3 mg/dL Final Albumin Date Value Ref Range Status 05/08/2022 3.6 3.5 - 5.0 g/dL Final 04/01/2022 3.8 3.5 - 5.0 g/dL Final Comment: Testing performed by: [address] [address] 11/15/2021 3.5 3.5 - 5.0 g/dL Final ALT Date Value Ref Range Status 05/08/2022 26 7 - 45 Units/L Final 04/01/2022 16 7 - 45 Units/L Final Comment: Testing performed by: [address] [address] 11/15/2021 19 7 - 45 Units/L Final AST Date Value Ref Range Status 05/08/2022 23 10 - 45 Units/L Final 04/01/2022 16 10 - 45 Units/L Final Comment: Testing performed by: [address] [address] 11/15/2021 25 10 - 45 Units/L Final TSH Date Value Ref Range Status 09/02/2021 1.52 0.30 - 4.20 mcIUnit/mL Final Comment: Testing performed by: [address] [address] 02/07/2021 1.54 0.30 - 4.20 mcIUnit/mL Final Comment: Testing performed by: [address] [address] TSH W REFLEX TO FT4 Date Value [...] last revised on 2018. Testing performed by: [address] [address] 04/02/2020 211 (H) 0 - 199 mg/dL [...] last revised on 2018. Testing performed by: [facility], [address] [place] [address]., [address] 04/02/2020 123 0 - 149 mg/dL Final [...] last revised on 2018. Testing performed by: [facility], [address] [place] [address]., [address] LDL, calculated Date Value Ref Range Status [...] last revised on 2018. Testing performed by: [facility], [address] [place] [address]., [address] LDL Cholesterol, Calc Date Value Ref Range [...] 0-125 pg/mL >74 years: 0-450 pg/mL Method: Wanderable Assessement and Plan -hypertension. She is on Coreg 3.125 b.i.d., Lasix 40 mg b.i.d. -hyperlipidemia. She is on atorvastatin 20 mg daily. Lipids reviewed. -left lower extremity DVT. She is on Eliquis 5 mg twice daily. -DM2. She is managed by primary care physician. On Jardiance in addition to her other medications, which is a good choice for cardiac risk modification. -CKD 3. Sees Dr Ryan. Cr 1.9 most recently. -Cardiac Risk Reduction: I have discussed with the patient the importance of healthy diet and regular exercise. Continue ASA. -schizophrenia plan: 6 mo f/u Cardiac Testing: TTE 12/2019 normal EF, normal diastolic function, no valvular disease We appreciate the opportunity to take care of Barbara Chakraborty. Please do not hesitate to call us if you have any questions or concerns. Sincerely yours, Santo Vail MD ITIONAL SERVICES COOK documented in this encounter Plan of Treatment Upcoming Encounters Date Type Department Care Team (Latest Contact Info) Description 07/13/2024 9:00 AM NUTRITIONAL SERVICES COOK Hospital Encounter [facility] GI Lab [address] [place] [address] Jaya Grier MD [address] [facility] [address] [place] [address] 07/13/2024 9:00 AM NUTRITIONAL SERVICES COOK - 07/13/2024 9:30 AM NUTRITIONAL SERVICES COOK Surgery [facility] GI Lab [address] [place] [address] Jaya Grier MD [address] [facility] [address] [place] [address] ESOPHAGOGASTRODUODENOSCOPY Scheduled Procedures Name Priority Associated Diagnoses Date/Ti me ESOPHAGOGASTRODUODENOSCOPY Anemia, unspecified type Gastritis without bleeding, unspecified chronicity, unspecified gastritis type 07/13/2024 9:00 AM NUTRITIONAL SERVICES COOK COLONOSCOPY Iron deficiency anemia due to chronic blood loss documented as of this encounter Visit Diagnoses Diagnosis Palpitations- Primary Anemia, unspecified type Gastritis without bleeding, unspecified chronicity, unspecified gastritis type documented in this encounter Care Teams Station Inspector Relationship Specialty Start Date End Date Cherelle Corcoran MD PCP - General Family Medicine 08/30/19 Mark Queen MD Consulting Physician Infectious Diseases 01/10/20 documented as of this encounter
--- OUTSIDE RECORDS SUMMARY | 2024-07-04 04:13 | XMS_ITS | Encounter Summary ---
Author Organization [facility] Address [address] [place] [address] Phone Care Team Providers Care Preservative Filler Machine Operator Name Role Phone Cherelle Corcoran MD Primary Care Pro vider Mark Queen MD Unavailable [phone]- [phone] Reason for Visit * Auth/Cert Specialty Diagnoses / Procedures Referred By Maryse t Referred To Contact Referral ID Status Reason Start Date Expiration Date Visits Re quested Visits Authorized [id number] 1 1 Encounter Details Date Type Department Care Team (Late st Contact Info) Description 04/29/2022 2:30 PM SPOT WORKER Home Care Visit [facility] [place] [address] [address] [place] [address] Yamilka Hoang, PT PT HOME VISIT Social History Tobacco Use [...] on file Legal Sex Female 9:03 AM SPOT WORKER Gender Identity Female 02/08/2020 6:39 PM CDT Sexual Orientation Not on file documented as of this encounter Last Filed Vital Signs Vital Sign Reading Time Taken Comments Blood Pressure 150/68 04/29/2022 2:08 PM SPOT WORKER Pulse 74 04/29/2022 2:08 PM SPOT WORKER Temperature 36.1 ??C (96.9 ??F) 04/29/2022 2:08 PM CS T Respiratory Rate 17 04/29/2022 2:08 PM SPOT WORKER Oxygen Saturation 97% 04/29/2022 2:08 PM SPOT WORKER Inhaled Oxygen Concentration - - Weight - - Height - - Body Mass Index - - documented in this encounter Plan of Treatment Upcoming Encounters Date Type Department Care Team (Latest Contact Info) Description 07/13/2024 9:00 AM SPOT WORKER Hospital Encounter [facility] GI Lab [address] [place] [address] Jaya Grier MD [facility] [facility] [address] [place] [address] 07/13/2024 9:00 AM SPOT WORKER - 07/13/2024 9:30 AM SPOT WORKER Surgery [facility] GI Lab [address] [place] [address] Jaya Grier MD [facility] [address] [place] [address] ESOPHAGOGASTRODUODENOSCOPY Scheduled Procedures Name Priority Associated Diagnoses Date/Ti id ESOPHAGOGASTRODUODENOSCOPY Anemia, unspecified type Gastritis without bleeding, unspecified chronicity, unspecified gastritis type 07/13/2024 9:00 AM SPOT WORKER COLONOSCOPY Iron deficiency anemia due to [...] home health visit Disciplines: SN, PT, OT, ACCOUNTS CLERK, TAILOR FITTER, Skilled Disciplines Monitor patient's vital signs every [...] visit during episode of care Description: Home licensed clinician to measure vital signs during every [...] Functional Mobility/Balance Completed Gait in home x 25 ft then x 40 ft using 2WW with moderate cueing to improve upright posture and to decrease offloading through B UE; cueing to improve step height. Pt reports feeling more fatigued today and declines any further gait Therapeutic Exercise Description: Perform therapeutic exercise, progressing as tolerated. Problem:PT Impaired Functional Mobility/Balance Completed Instructed pt on standing Heel raises, Toe raises x 10 ea w B UE support then following seated rest hip flexion w knee flexion alternating LE x 10 Pt req constant cueing to improve upright posture w tactile cueing to engage glutes and retract shoulders Transfer training Description: Instruct patient/caregiver and perform transfer training. Problem:PT Impaired Functional Mobility/Balance Completed Sit <> Stand from recliner chair relying on mod to max assist B UE pushing up from arm rests with moderate difficulty to complete Pt does demonstrate backing up to her chair using w/walker and reaches back w B UE as she sits, w/o cueing Fair control w stand > sit Home Exercise Program (HEP) Description: Instruct patient/caregiver and perform HEP. Problem:PT Impaired Functional Mobility/Balance Completed Instructed pt on seated HEP for B LE strengthening and performed sitting upright in recliner chair: Heel raises, Toe raises, LAQ, Hip flexion w knee flexion, Hip abd/add w knees flexed. Performed x 10 reps ea w tactile cueing to perform L LAQ and L hip abd/add within full AROM. Pt tolerates well. Instructed pt on gentle cervical AROM rotation L / R, flex / ext however pt reports inc pain maxim w rotation to the R No cg present during instruction on seated HEP; will plan to re-instruct pt and cg next visit Pt reports she does work on supine HEP daily Balance Training/Activities Description: Instruct patient/caregiver and perform balance training activities. Problem:PT Impaired Functional Mobility/Balance Completed Instructed pt on standing balance static stance with feet shoulder width apart x 1 min w constant tactile cueing to engage glutes and retract shoulders then static stance with head turns L and R with gentle stretch x 5 reps ea direction Pt req CGA to maintain balance w turning head documented in this encounter Care Teams Preservative Filler Machine Operator Relationship Specialty Start Date End Date Cherelle Corocran MD PCP - General Family Medicine 08/30/19 Mark Queen MD Consulting Physician Infectious Diseases 01/10/20 documented as of this encounter
--- OUTSIDE RECORDS SUMMARY | 2024-07-04 04:13 | XMS_ITS | Encounter Summary ---
Author Organization [facility] Address [address] [place] [address] Phone Care Team Providers Care Eyelet Machine Operator Name Role Phone Cherelle Corcoran MD Primary Care Pro vider Mark Queen MD Unavailable [phone] Reason for Visit * Auth/Cert Specialty Diagnoses / Procedures Referred By Maryse t Referred To Contact Referral ID Status Reason Start Date Expiration Date Visits Re quested Visits Authorized [id number] 1 1 Encounter Details Date Type Department Care Team (Late st Contact Info) Description 05/21/2022 Home Care Visit [facility] Home Health - [address] [place] [address] Hanny Cruz, ANG TELEPHONE ENCOUNTER Social History Tobacco Use Types [...] attend chur ch or spiritism services? Never 09/10/2021 Do you belong to [...] slept in a custodial (including now)? No 09/10/2021 Comments No Sex and Gender Information Value Date Recorded Sex Assigned at Not on file Legal Sex Female 9:03 AM OVERLOCK WAISTLINE JOINER Gender Identity Female 02/08/2020 6:39 PM CDT Sexual Orientation Not on file documented as of this encounter Plan of Treatment Upcoming Encounters Date Type Department Care Team (Latest Contact Info) Description 07/13/2024 9:00 AM OVERLOCK WAISTLINE JOINER Hospital Encounter [facility] GI Lab [address] [place] [address] Jaya Grier MD [address] [facility] [address] [place] [address] 07/13/2024 9:00 AM OVERLOCK WAISTLINE JOINER - 07/13/2024 9:30 AM OVERLOCK WAISTLINE JOINER Surgery [facility] GI Lab [address] [place] [address] Jaya Grier MD [facility] [address] [place] [address] ESOPHAGOGASTRODUODENOSCOPY Scheduled Procedures Name Priority Associated Diagnoses Date/Ti me ESOPHAGOGASTRODUODENOSCOPY Anemia, unspecified type Gastritis without bleeding, unspecified chronicity, unspecified gastritis type 07/13/2024 9:00 AM OVERLOCK WAISTLINE JOINER COLONOSCOPY Iron deficiency anemia due to chronic blood loss documented as of this encounter Visit Diagnoses Not on filedocumented in this encounter Care Teams Eyelet Machine Operator Relationship Specialty Start Date End Date Cherelle Corcoran MD PCP - General Family Medicine 08/30/19 Mark Queen MD Consulting Physician Infectious Diseases 01/10/20 documented as of this encounter
--- OUTSIDE RECORDS SUMMARY | 2024-07-04 04:13 | XMS_ITS | Encounter Summary ---
Author Organization [facility] Address [address] [place] [address] Care Team Providers Care Edge Gluer Name Role Phone Cherelle Corcoran MD Primary Care Pro vider Mark Queen MD Unavailable [phone] Reason for Visit * Reason Onset Date Comments Medication Request 06/04/2022 Encounter Details Date Type Department Care Team ([facility] st Contact Info) Description 06/04/2022 Telephone [facility] Primary Care [address] [facility] [address] [place] [address] Cherelle Corcoran MD [facility] [facility] [address] [place] [address] Medication Request Social History Tobacco Use Types Packs/Day [...] on file Legal Sex Female 9:03 AM PROJECT INSPECTOR Gender Identity Female 02/08/2020 6:39 PM CDT Sexual Orientation Not on file documented as of this encounter Ordered Prescriptions Prescription Sig Dispense Quantity Refills Last Filled Start Date End Date dulaglutide (TRULICITY) 1.5 mg/0.5 mL pen injectorIndication s:Type 2 diabetes mellitus with diabetic neuropathy, with long-term current use of insulin (HCC) Inject 0.5 mL (1.5 mg total) under the skin every 7 days 2 mL 1 06/07/2022 07/30/2022 documented in this encounter Miscellaneous Notes * Telephone Encounter - Cherelle Corcoran MD - 06/07/2022 1:46 PM CST Sent to pharmacy. [facility] ECT INSPECTOR * Telephone Encounter - Brittney To MA - 06/06/2022 4:15 PM PROJECT INSPECTOR Please advise. ECT INSPECTOR * Telephone Encounter - Roseanna Mckenna - 06/04/2022 3:13 PM CST Medication Question/Clarification Medication Name(s): dulaglutide (Trulicity) 0.75 mg/0.5 mL pen injector What is the question or clarification needed? Patient needs a refill of this medication but is wanting the dosage to be changed to 1.5 mg If needed, Pharmacy(s) medication([facility]) [id number] Caller???s Callback #: [phone] Additional Comments: none Does message need to be routed? Yes-Action Needed ECT INSPECTOR documented in this encounter Plan of Treatment Upcoming Encounters Date Type Department Care Team (Latest Contact Info) Description 07/13/2024 9:00 AM PROJECT INSPECTOR Hospital Encounter [facility] [address] [place] [address] Jaya Grier MD [address] [place] [address] 07/13/2024 9:00 AM PROJECT INSPECTOR - 07/13/2024 9:30 AM PROJECT INSPECTOR Surgery [facility] [address] [place] [address] Jaya Grier MD [address] [place] [address] ESOPHAGOGASTRODUODENOSCOPY Scheduled Procedures Name Priority Associated Diagnoses Date/Ti me ESOPHAGOGASTRODUODENOSCOPY Anemia, unspecified type Gastritis without bleeding, unspecified chronicity, unspecified gastritis type 07/13/2024 9:00 AM PROJECT INSPECTOR COLONOSCOPY Iron deficiency anemia due to chronic blood loss documented as of this encounter Visit Diagnoses Diagnosis Type 2 diabetes mellitus with diabetic neuropathy, with long-term current use of insulin (HCC)- Primary Anemia, unspecified type Gastritis without bleeding, unspecified chronicity, unspecified gastritis type documented in this encounter Discontinued Medications Medication Sig Discontinue Reason Start Date End Da te dulaglutide (Trulicity) 0.75 mg/0.5 mL pen injectorIndications:Type 2 diabetes mellitus with diabetic neuropathy, with long-term current use of insulin (HCC) Inject 0.5 mL (0.75 mg total) under the skin once a week Dose adjustment 01/28/2022 06/07/2022 documented as of this encounter Care Teams Edge Gluer Relationship Specialty Start Date End Date Cherelle Corcoran MD PCP - General Family Medicine 08/30/19 Mark Queen MD Consulting Physician Infectious Diseases 01/10/20 documented as of this encounter
--- OUTSIDE RECORDS SUMMARY | 2024-07-04 04:13 | XMS_ITS | Encounter Summary ---
Author Organization [facility] Address [address] [place] [address] Care Team Providers Care Clay Processing Factory Worker Name Role Phone Cherelle Corcoran MD Primary Care Pro vider Mark Queen MD Unavailable [phone] Reason for Visit * Reason Onset Date Comments Referral Request 05/13/2022 Encounter Details Date Type Department Care Team ([facility] st Contact Info) Description 05/13/2022 Telephone [facility] Primary Care [address] [facility] [address] [place] [address] Cherelle Corcoran MD [facility] [facility] [address] [place] [address] Referral Request Social History Tobacco Use Types Packs/Day [...] Legal Sex Female 9:03 AM MANAGER OF FINANCIAL PLANNING Gender Identity Female 02/08/2020 6:39 PM CDT Sexual Orientation Not on file documented as of this encounter Miscellaneous Notes * Telephone Encounter - Yoly Elkins LPN - 05/22/2022 10:05 AM MANAGER OF FINANCIAL PLANNING Spoke to patient's daughter-Areli, advised of Dr. Corcoran's recommendations, verbalized understanding. GER OF FINANCIAL PLANNING * Telephone Encounter - Anabel Dotson - 05/21/2022 1:01 PM CST Call Back Caller???s Concern: daughter called back and was notified that we are waiting for admission forms and a request from the facility on everything that they need so it can be filled out Caller???s Call back #: n/a Does message need to be routed? No GER OF FINANCIAL PLANNING * Telephone Encounter - Sandy Mota MA - 05/14/2022 2:07 PM CST Is this all okay to do for the facility? GER OF FINANCIAL PLANNING * Telephone Encounter - Anabel Dotson - 05/13/2022 3:45 PM CST Referral Provider Name (if patient is seeing a nurse practitioner or physician medical receptionist assistant, list the WASHING MACHINE INSTALLER/PA, but also their collaborating doctor): [facility] [place] Specialty: memory care Address: [address] [place] [address], [place] [address] Phone: [phone] Fax: [phone] Diagnosis Code/Symptom/Reason Patient is being seen: dementia Date of Appointment: move in NPI#: n/a Tax ID#: n/a Is insurance in chart up to date? Yes Caller???s Callback #: [phone] Additional Comments: facility stated that they needed a referral for patient to move in Face sheet history and physical current med list last face to face visit with needs to be sent Does message need to be routed?Yes-Action Needed GER OF FINANCIAL PLANNING documented in this encounter Plan of Treatment Upcoming Encounters Date Type Department Care Team (Latest Contact Info) Description 07/13/2024 9:00 AM MANAGER OF FINANCIAL PLANNING Hospital Encounter [facility] GI [facility] [address] [place] [address] Jaya Grier MD [address] [place] [address] [address] [place] [address] 07/13/2024 9:00 AM MANAGER OF FINANCIAL PLANNING - 07/13/2024 9:30 AM MANAGER OF FINANCIAL PLANNING Surgery [facility] [address] [place] [address] Jaya Grier MD [address] [place] [address] [address] [place] [address] ESOPHAGOGASTRODUODENOSCOPY Scheduled Procedures Name Priority Associated Diagnoses Date/Ti me ESOPHAGOGASTRODUODENOSCOPY Anemia, unspecified type Gastritis without bleeding, unspecified chronicity, unspecified gastritis type 07/13/2024 9:00 AM MANAGER OF FINANCIAL PLANNING COLONOSCOPY Iron deficiency anemia due to chronic blood loss documented as of this encounter Visit Diagnoses Not on filedocumented in this encounter Care Teams Clay Processing Factory Worker Relationship Specialty Start Date End Date Cherelle Corcoran MD PCP - General Family Medicine 08/30/19 Mark Queen MD Consulting Physician Infectious Diseases 01/10/20 documented as of this encounter
--- OUTSIDE RECORDS SUMMARY | 2024-07-04 04:13 | XMS_ITS | Encounter Summary ---
Author Organization [facility] Address [address] [place] [address] Phone Care Team Providers Care City Director Name Role Phone Cherelle Corcoran MD Primary Care Pro vider Mark Queen MD Unavailable [phone] Reason for Visit * Auth/Cert Specialty Diagnoses / Procedures Referred By Maryse t Referred To Contact Referral ID Status Reason Start Date Expiration Date Visits Re quested Visits Authorized [id number] 1 1 Encounter Details Date Type Department Care Team (Late st Contact Info) Description 05/13/2022 11:00 AM TOBACCO STEMMER Home Care Visit [facility] [address] [place] [address] Yamilka Hoang, PT PT REASSESSMENT Social History [...] you attend chur ch or alevism services? Never 09/10/2021 Do you belong to [...] slept in a correction (including now)? No 09/10/2021 Comments No Sex and Gender Information Value Date Recorded Sex Assigned at Not on file Legal Sex Female 9:03 AM TOBACCO STEMMER Gender Identity Female 02/08/2020 6:39 PM CDT Sexual Orientation Not on file documented as of this encounter Last Filed Vital Signs Vital Sign Reading Time Taken Comments Blood Pressure 112/68 05/13/2022 11:39 AM TOBACCO STEMMER Pulse 74 05/13/2022 11:39 AM TOBACCO STEMMER Temperature 36.1 ??C (96.9 ??F) 05/13/2022 11:[address] Respiratory Rate 16 05/13/2022 11:39 AM TOBACCO STEMMER Oxygen Saturation 96% 05/13/2022 11:39 AM TOBACCO STEMMER Inhaled Oxygen Concentration - - Weight - - Height - - Body Mass Index - - documented in this encounter Miscellaneous Notes * Home Health Visit Narrative - Yamilka Hoang, PT - 05/13/2022 11:33 AM TOBACCO STEMMER Pt's dtr took pt to [facility] ED on 05/08 d/t pt being more weak, pt had slid off the edge of her bed. Ptwas found to have another UTI and was prescribed kephalexin. Pt and her granddaughter deny any new falls. Pt appears more lethargic this visit, pt has difficulty keeping her eyes open while performing supine therex. Pt also req Min (A) for ambulation using 2WW and Min to Mod (A) for transfers this date. Pt to f/up w PCP Dr. Corcoran this afternoon. Pt will benefit to continue PT with focus on safety, strengthening, transfers, gait, balance, HEP instruction. Pt and cgs are agreeable. CCO STEMMER documented in this encounter Plan of Treatment Upcoming Encounters Date Type Department Care Team (Latest Contact Info) Description 07/13/2024 9:00 AM TOBACCO STEMMER Hospital Encounter [facility] GI Lab [address] [place] [address] Jaya Grier MD [address] [facility] [address] [address] 07/13/2024 9:00 AM TOBACCO STEMMER - 07/13/2024 9:30 AM TOBACCO STEMMER Surgery [facility] GI [facility] [address] [place] [address] Jaya Grier MD [address] [place] [address] ESOPHAGOGASTRODUODENOSCOPY Scheduled Procedures Name Priority Associated Diagnoses Date/Ti me ESOPHAGOGASTRODUODENOSCOPY Anemia, unspecified type Gastritis without bleeding, unspecified chronicity, unspecified gastritis type 07/13/2024 9:00 AM TOBACCO STEMMER COLONOSCOPY Iron deficiency anemia due to chronic [...] home health visit Disciplines: SN, PT, OT, ACCOUNTANT BUDGET, FACILITIES ENGINEER, Skilled Disciplines Monitor patient's vital signs every [...] visit during episode of care Description: Home hospital account manager to measure vital signs during every [...] Functional Mobility/Balance Completed Gait in home x 20 ft x 2 using 2WW with Min (A) Pt w flexed posture, dec step height and length bilat, dec lanny. Pt able to slightly improve upright posture w tactile cueing, however pt more fatigued this date. PT instructed pt to use w/walker at all times for safety, pt verb understanding. Therapeutic Exercise Description: Perform therapeutic exercise, progressing as tolerated. Problem:PT Impaired Functional Mobility/Balance Completed See HEP comments Transfer training Description: Instruct patient/caregiver and perform transfer training. Problem:PT Impaired Functional Mobility/Balance Completed Sit to stand from recliner chair with cueing to scoot fwd to edge of seat, pt relies on maximal assist B UE pushing up from arm rests and Min (A) of PT to complete, pt demonstrates more difficulty extending hips this date Pt transfers into bed by stepping up onto step stool w L LE with B UE support on walker and CGA then with moderate difficulty flexes R hip and knee to crawl fwd onto R knee then rolls onto her R side. Supine > Sitting at EOB with Mod (A) Home Exercise Program (HEP) Description: Instruct patient/caregiver and perform HEP. Problem:PT Impaired Functional Mobility/Balance Completed Instructed pt on HEP and performed supine: Ankle pumps, Quad set, Heel slide, Hip abd/add, SLR. Performed x 8-10 reps ea B LE, pt appears drowsy throughout and req constant tactile cueing to perform therex and Min (A) to complete w L LE. No cg present for instruction on HEP this visit, pt and cgs have been provided written instructions for HEP. documented in this encounter Care Teams City Director Relationship Specialty Start Date End Date Cherelle Corcoran MD PCP - General Family Medicine 08/30/19 Mark Queen MD Consulting Physician Infectious Diseases 01/10/20 documented as of this encounter
--- OUTSIDE RECORDS SUMMARY | 2024-07-04 04:14 | XMS_ITS | Encounter Summary ---
Author Organization [facility] Home Care Servic es Address [address] [place] [address] Phone Care Team Providers Care Blueprint Maker Name Role Phone Cherelle Corcoran MD Primary Care Pro vider Mark Queen MD Unavailable [phone] Reason for Visit * Auth/Cert Specialty Diagnoses / Procedures Referred By Maryse t Referred To Contact Referral ID Status Reason Start Date Expiration Date Visits Re quested Visits Authorized [id number] 1 1 Encounter Details Date Type Department Care Team (Late st Contact Info) Description 01/13/2022 10:30 AM CDT Home Care Visit [facility] [address] [address] [address] [place] [address] Diann Hernandez OT OT HOME VISIT Social History Tobacco Use Types [...] any clubs o r organizations such as pentecostalism groups, unions, fraternal or athletic groups, or school groups? No 09/10/2021 How often do you attend meet ings of the clubs or organizations you belong to? Never 09/10/2021 Are you , , di vorced, , never , or living with a partner? 09/10/2021 AUDIT-C Answer Date Recorded Q1: How often do you have a drink containing alc ohol? Never 10/16/2021 Average Number of Drinks Not on file 022 Frequency of Binge Drinking Not on file 09/21 Overall Financial Resource Strain (CARDIA) Answe r [...] on file Legal Sex Female 9:03 AM COAL WASHER TENDER Gender Identity Female 02/08/2020 6:39 PM CDT Sexual Orientation Not on file documented as of this encounter Last Filed Vital Signs Vital Sign Reading Time Taken Comments Blood Pressure 152/68 01/13/2022 10:56 AM CDT Pulse 69 01/13/2022 10:56 AM CDT Temperature 36.6 ??C (97.9 ??F) 01/13/2022 10:56 AM C DT Respiratory Rate 18 01/13/2022 10:56 AM CDT Oxygen Saturation 98% 01/13/2022 10:56 AM CDT Inhaled Oxygen Concentration - - Weight - - Height - - Body Mass Index - - documented in this encounter Miscellaneous Notes * Home Health Plan for Next Visit - Diann Hernandez OT - 01/13/2022 10:35 AM CDT Reason for today's visit HEP, transfers, elevation of LEs. Discuss plan of care with patient. Discharge planning when goals are met. Plan for next visit: HEP, functional transfers, energy conservation. documented in this encounter Plan of Treatment Upcoming Encounters Date Type Department Care Team (Latest Contact Info) Description 07/13/2024 9:00 AM COAL WASHER TENDER Hospital Encounter [facility] [address] [place] [address] Jaya Grier MD [address] [place] [id number] 07/13/2024 9:00 AM COAL WASHER TENDER - 07/13/2024 9:30 AM COAL WASHER TENDER Surgery [facility] [address] [place] [address] Jaya Grier MD [address] [place] [address] ESOPHAGOGASTRODUODENOSCOPY Scheduled Procedures Name Priority Associated Diagnoses Date/Ti me ESOPHAGOGASTRODUODENOSCOPY Anemia, unspecified type Gastritis without bleeding, unspecified chronicity, unspecified gastritis type 07/13/2024 9:00 AM COAL WASHER TENDER COLONOSCOPY Iron deficiency anemia due to chronic blood loss documented as of this encounter Visit Diagnoses Not on filedocumented in this encounter Home Health Visit - Care Plan Visit Details Visit Type -OT Home Visit Discipline -Occupational Therapy Problems Problem Description Start Date Status Goals Interventions Homebound Status Disciplines: Skilled Disciplines Patient's homebound status 12/25/2021 Active 1 goal linked to scheduled/docume nted intervention 1 goal intervention scheduled/documen bruno in this visit Monitor patient's vital signs every home health visit Disciplines: SN, PT, OT, FASHION JOURNALIST, COMPUTER INSTALLATION ENGINEER, Skilled Disciplines Monitor patient's vital signs every home health visit. 12/25/2021 Active 1 goal linked to scheduled/docume nted intervention 1 goal intervention scheduled/documen bruno in this visit Safety concerns Disciplines: Skilled Disciplines Alteration in safety 12/25/2021 Active 1 goal linked to scheduled/docume nted intervention 2 goal interventions scheduled/documen bruno in this visit DVT Prevention and Management Disciplines: Skilled Disciplines Management of anticoagulation therapy 12/25/2021 Active 1 goal linked to scheduled/docume nted intervention 1 goal intervention scheduled/documen bruno in this visit Pain Disciplines: Core Disciplines Alteration in comfort 12/25/2021 Active 1 goal linked to scheduled/docume nted intervention 1 goal intervention scheduled/documen bruno in this visit OT Positioning/Pre ssure Relief Disciplines: Occupational Therapy Positioning/seating /pressure relief needed due to previous pressure injuries on buttocks and L heel. 01/02/2022 Active - 1 problem intervention scheduled/documen bruno in this visit OT Activity Tolerance/Energ y Conservation Disciplines: Occupational Therapy Impaired activity tolerance for functional activity 01/02/2022 Active - 2 problem interventions scheduled/documen bruno in this visit OT Impaired ADLs Disciplines: Occupational Therapy Impaired independence in self-care, ADLs. 01/02/2022 Active - 1 problem intervention scheduled/documen bruno in this visit Wound Care Disciplines: Core Disciplines Wound care needed 01/09/2022 Active 1 goal linked to scheduled/docume nted intervention 1 goal intervention scheduled/documen bruno in this visit Wound Care Disciplines: Core Disciplines #5 Wound care needed 01/09/2022 Active 1 goal linked to scheduled/docume nted intervention 1 goal intervention scheduled/documen bruno in this visit Wound Risk of Infection Disciplines: Core Disciplines Risk of infections related to wounds 01/09/2022 Active 1 goal linked to scheduled/docume nted intervention 2 goal interventions scheduled/documen bruno in this visit Goals Goal Associated Problem Outcome Goal Met? Visit Notes Patient receives care at the most appropriate care setting Description: Patient receives care at the most appropriate care setting. Homebound Status No Measure vital signs during every home health visit during episode of care Description: Home habilitative interventionist to measure vital signs during every home health visit during episode of care. Monitor patient's vital signs every home health visit No Demonstrate use of safety precautions Description: Patient/caregiver maintains safe home environment as evidenced by remaining free from injury and demonstrates use of safety precautions. Safety concerns No Demonstrate knowledge of anticoagulant therapy Description: Patient/caregiver will verbalize understanding of anticoagulation therapy including adverse signs and symptoms to notify physician or contact EMS. DVT Prevention and Management No Report that pain has been reduced or controlled Description: Patient/caregiver/family will verbalize satisfaction with the patients level of pain and symptom control. Pain No Progression towards healing Description: Wound show progression towards healing by 01/24/22 Wound Care No Progression towards healing Description: #5 Left Heel Wound show progression towards healing by 01/24/22 Wound Care No Knowledgeable of infection Description: Patient will remain free of infection and able to recognize of signs of infection by 01/24/22. Wound Risk of Infection No Interventions Intervention Associated Problem/Goal Status Variance Visit Notes Homebound Status Description: Patient is homebound due to recent hospitalization for DVT, unsteady gait, poor endurance. Requires assist of walker and 1 person to safely leave the home Problem:Homebound Status Goal:Patient receives care at the most appropriate care setting Completed Patient is homebound due to recent hospitalization for DVT, unsteady gait, poor endurance. Requires assist of walker and 1 person to safely leave the home Monitor Vital Signs Description: Monitor blood pressure, pulse, oxygen saturation, respirations Problem:Monitor patient's vital signs every home health visit Goal:Measure vital signs during every home health visit during episode of care Completed Instruct Fall Prevention Description: Instruct patient/caregiver in methods to prevent falls Problem:Safety concerns Goal:Demonstrate use of safety precautions Completed Pt has shown better consistency of using FWW in household to decrease risk for falls. Assess safety Description: Assess patient safety Problem:Safety concerns Goal:Demonstrate use of safety precautions Completed Pt used walker this date to open front door with overall good technique and no LOB. Instruct on the prevention of deep vein thrombosis Description: Instruct patient/caregiver on signs and symptoms, preventative measures related to DVT, and provide ongoing home support based on patient needs Problem:DVT Prevention and Management Goal:Demonstrate knowledge of anticoagulant therapy Completed Instruct on pain management techniques Description: Instruct in pharmacologic and nonpharmacologic pain management techniques. Problem:Pain Goal:Report that pain has been reduced or controlled Completed Pt educated on benefits of taking tylenol for pain management. Pressure Relief Description: Instruct patient/caregiver and perform pressure relief techniques Problem:OT Positioning/Pressure Relief Completed OT re-educated pt on benefits of elevating LEs while relaxing in chair to prevent pooling of fluid in ankles and feet. Pt verbalized understanding. Home Exercise Program (HEP) Description: Instruct patient/caregiver in HEP completion. Problem:OT Activity Tolerance/Energy Conservation Completed Patient completed UB HEP this date with green theraband in planes of shoulder flexion, scaption, biceps and triceps. OT demo'd movements and provided written and visual instructions for completion. Pt verbalized and demo'd understanding with no further questions. Pt completed 8 reps and instructed to complete every day for 8-10 reps for each exercise. Cueing throughout required for form, technique and body mechanics to isolate specific muscle groups. Energy Conservation Education Description: Instruct patient/caregiver in techniques for improved activity tolerance Problem:OT Activity Tolerance/Energy Conservation Completed OT re-educated pt on deep breathing strategies to increase oxygen in body, provide a calming effect and relax during activity or after exercise completion. Transfer Training Description: Instruct patient/caregiver and perform transfer training. Problem:OT Impaired ADLs Completed Pt required cueing to reach back for arm rests prior to sitting down in chair. OT re-educated pt on technique and pt completed 3 sit-stands from arm chair pushing up from and reaching back for arm rests each time. Pt verbalized and demo'd understanding. Skilled assessment wound Description: Full wound assessment including measurement weekly. Wound assessment each visit Problem:Wound Care Goal:Progression towards healing Completed Perform dressing change Description: Perform dressing change: Site #5 left heel , Skilled Nurse, Caregiver or Patient to leave open to air and float heels. Problem:Wound Care Goal:Progression towards healing Completed Instruct Hand Washing Description: Instruct patient/caregiver on hand wash technique Problem:Wound Risk of Infection Goal:Knowledgeable of infection Completed Instruct on the signs and symptoms of infection Description: Assess wound with each visit for s/sx of infection Problem:Wound Risk of Infection Goal:Knowledgeable of infection Completed documented in this encounter Care Teams Blueprint Maker Relationship Specialty Start Date End Date Cherlele Corcoran MD PCP - General Family Medicine 08/30/19 Mark Queen MD Consulting Physician Infectious Diseases 01/10/20 documented as of this encounter
--- OUTSIDE RECORDS SUMMARY | 2024-07-04 04:14 | XMS_ITS | Encounter Summary ---
Author Organization [facility] Home Care Servic es Address [address] [place] [address] Phone Care Team Providers Care Digital Music Instructor Name Role Phone Cherelle Corcoran MD Primary Care Pro vider Mark Queen MD Unavailable [phone]- [phone] Reason for Visit * Auth/Cert Specialty Diagnoses / Procedures Referred By Maryse t Referred To Contact Referral ID Status Reason Start Date Expiration Date Visits Re quested Visits Authorized [id number] 1 1 Encounter Details Date Type Department Care Team (Late st Contact Info) Description 01/24/2022 8:30 AM CDT Home Care Visit [facility] [address] [place] [address] Indira Valdivia LPN SN HOME VISIT Social History Tobacco Use [...] often do you attend chur ch or orthodoxy services? Never 09/10/2021 Do you belong to [...] on file Legal Sex Female 9:[address] HELPER Gender Identity Female 02/08/2020 6:39 PM CDT Sexual Orientation Not on file documented as of this encounter Last Filed Vital Signs Vital Sign Reading Time Taken Comments Blood Pressure 128/74 01/24/2022 9:07 AM CDT Pulse 78 01/24/2022 9:07 AM CDT Temperature 36.6 ??C (97.8 ??F) 01/24/2022 9:07 AM CD T Respiratory Rate 18 01/24/2022 9:07 AM CDT Oxygen Saturation 99% 01/24/2022 9:07 AM CDT Inhaled Oxygen Concentration - - Weight - - Height - - Body Mass Index - - documented in this encounter Miscellaneous Notes * Home Health Plan for Next Visit - Indira Valdivia LPN - 01/24/2022 8:40 AM CDT plan for next visit discharge from home care documented in this encounter Plan of Treatment Upcoming Encounters Date Type Department Care Team (Latest Contact Info) Description 07/13/2024 9:[address] HELPER Hospital Encounter [facility] [address] [place] [address] Jaya Grier MD [facility] [place] [id number] 07/13/2024 9:[address] HELPER - 07/13/2024 9:[address] PA[address] HELPER Surgery [facility] [address] [place] [address] Jaya Grier MD [facility] [address] [place] [id number] ESOPHAGOGASTRODUODENOSCOPY Scheduled Procedures Name Priority Associated Diagnoses Date/Ti ma ESOPHAGOGASTRODUODENOSCOPY Anemia, unspecified type Gastritis without bleeding, unspecified chronicity, unspecified gastritis type 07/13/2024 9:[address] HELPER COLONOSCOPY Iron deficiency anemia due to chronic blood loss documented as of this encounter Visit Diagnoses Not on filedocumented in this encounter Home Health Visit - Care Plan Visit Details Visit Type -SN Home Visit Discipline -Penitentiary Problems Problem Description Start Date Status Goals Interventions Homebound Status Disciplines: Skilled Disciplines Patient's homebound status 12/25/2021 Active 1 goal linked to scheduled/docume nted intervention 1 goal intervention scheduled/documen bruno in this visit Medications Disciplines: Penitentiary Management of home medications 12/25/2021 Active 1 goal linked to scheduled/docume nted intervention 1 goal intervention scheduled/documen bruno in this visit Monitor patient's vital signs every home health visit Disciplines: SN, PT, OT, EXERCISE EQUIPMENT REPAIR TECHNICIAN, ENVIRONMENTAL EPIDEMIOLOGIST, Skilled Disciplines Monitor patient's vital signs every [...] goal intervention scheduled/documen bruno in this visit Disease Management - Diabetes Disciplines: Penitentiary Management of diabetes symptoms 12/25/2021 Active 1 goal linked to scheduled/docume [...] No Understand and follow medication therapy Description: Patient/caregiver will understand and follow prescribed medication therapy as evidence by having up to date medication list in home & ability to verbalize purpose, schedule, and side effects by the end of the episode of care Medications No Measure vital signs during every home health visit during episode of care Description: Home powdered metal supervisor to measure vital signs during every home [...] of pain and symptom control. Pain No Verbalize prevention of Diabetic complications Description: Patient/caregiver to demonstrate knowledge of diabetes as evidenced by ability to verbalize proper foot care and signs and symptoms of infection and skin breakdown to report to physician. Disease Management - Diabetes No Progression towards healing Description: Wound show [...] 1 person to safely leave the home Instruct medications Description: Instruct patient/caregiver in medication administration, purpose, dosages, preparation, scheduling, side effects, food/drug interactions, storage, drug allergies, and potential complications. Problem:Medications Goal:Understand and follow medication therapy Completed sn instructed patient on tylenol 650 mg q6 hours prn for pain store at room temprature nka side effects headache n/v dizziness drowsiness if symptoms persist or worsen notify doctor patient verbalized understanding Monitor Vital Signs Description: Monitor blood pressure, pulse, oxygen saturation, respirations Problem:Monitor patient's vital signs every home health visit Goal:Measure vital signs during every home health visit during episode of care Completed WNL Instruct Fall Prevention Description: Instruct patient/caregiver in methods to prevent falls Problem:Safety concerns Goal:Demonstrate use of safety precautions Completed sn instructed patient on fall prevention to insure pathway free of debris insure wc/walker in locked position when standing up/down if any feelings of dizziness upon standing sit back down till it passess patient verbalized understanding Assess safety Description: Assess patient safety Problem:Safety concerns Goal:Demonstrate use of safety precautions Scheduled Instruct on the prevention of deep vein thrombosis Description: Instruct patient/caregiver on signs and symptoms, preventative measures related to DVT, and provide ongoing home support based on patient needs Problem:DVT Prevention and Management Goal:Demonstrate knowledge of anticoagulant therapy Scheduled Instruct on pain management techniques Description: Instruct in pharmacologic and nonpharmacologic pain management techniques. Problem:Pain Goal:Report that pain has been reduced or controlled Scheduled Educate on foot care Description: Educate patient/caregiver on proper foot care. Problem:Disease Management - Diabetes Goal:Verbalize prevention of Diabetic complications Completed sn instructed patient to inspect feet on daily basis report any abnormalties to doctor patient verbalized understanding Skilled assessment wound Description: Full wound assessment including measurement weekly. Wound assessment each visit Problem:Wound Care Goal:Progression towards healing Completed sn assessed wound open to air flaky scabbed over no drainage noted no s/s of infection patient tolerated well Perform dressing change Description: Perform dressing change: Site #5 left heel , Skilled Nurse, Caregiver or Patient to leave open to air and float heels. Problem:Wound Care Goal:Progression towards healing Completed sn assessed wound open to air flaky scabbed over no drainage noted no s/s of infection patient tolerated well Instruct Hand Washing Description: Instruct patient/caregiver on hand wash technique Problem:Wound Risk of Infection Goal:Knowledgeable of infection Completed Instruct on hand washing before and after using the bathroom, after removing gloves or other protective clothing, before preparing food, after eating or smoking, immediately after hand contact with blood or other body fluids or feces, and frequently throughout the day. Instruct patient/caregiver to wear gloves any time they may have direct contact with blood, body fluids, non-intact skin, or surfaces soiled with blood or body fluids. Instruct patient/caregiver to dispose of soiled dressings and supplies in a plastic trash bag, seal, and place in regular trash. Instruct on the signs and symptoms of infection Description: Assess wound with each visit for s/sx of infection Problem:Wound Risk of Infection Goal:Knowledgeable of infection Completed sn instructed patient on s/s of infection redness warmth pain drainage odor temprature notify doctor patient verbalized understanding documented in this encounter Care Teams Digital Music Instructor Relationship Specialty Start Date End Date Cherelle Corcoran MD PCP - General Family Medicine 08/30/19 Mark Queen MD Consulting Physician Infectious Diseases 01/10/20 documented as of this encounter
--- OUTSIDE RECORDS SUMMARY | 2024-07-04 04:14 | XMS_ITS | Encounter Summary ---
Author Organization [facility] Home Care [facility] es Address [address] [place] [address] Phone Care Team Providers Care Wastewater Superintendent Name Role Phone Cherelle Corcoran MD Primary Care Pro vider Mark Queen MD Unavailable [phone]- [phone] Reason for Visit * Reason Onset Date Comments Home Care 04/15/2022 Encounter Details Date Type Department Care Team (Late st Contact Info) Description 04/15/2022 Telephone [facility] [address] [place] [address] Mague Del Cid RN Home Care Social History Tobacco Use Types Packs/Day Years [...] do you attend chur or amish services? Never 09/10/2021 Do you [...] on file Legal Sex Female 9:03 AM FOOD AND BEVERAGE ASSOCIATE Gender Identity Female 02/08/2020 6:39 PM CDT Sexual Orientation Not on file documented as of this encounter Miscellaneous Notes * Telephone Encounter - Mague Del Cid RN - 04/15/2022 4:56 PM CDT Home Health referral received. Patient accepted to [facility]. Home health services explained and information verified with patient's daughter Areli She agreed to home care services. Verified noother home care agency is in the home. Areli instructed to call [phone] (option 1) if have not been contacted by [facility] Home Care with 24-48 hours. documented in this encounter Plan of Treatment Upcoming Encounters Date Type Department Care Team (Latest Contact Info) Description 07/13/2024 9:00 AM FOOD AND BEVERAGE ASSOCIATE Hospital Encounter [facility] [address] [place] [address] Jaya Grier MD [facility] [facility] [address] [place] [address] 07/13/2024 9:00 AM FOOD AND BEVERAGE ASSOCIATE - 07/13/2024 9:30 AM FOOD AND BEVERAGE ASSOCIATE [facility] [address] [place] [address] Jaya Grier MD [address] [place] [phone] ESOPHAGOGASTRODUODENOSCOPY Scheduled Procedures Name Priority Associated Diagnoses Date/Ti me ESOPHAGOGASTRODUODENOSCOPY Anemia, unspecified type Gastritis without bleeding, unspecified chronicity, unspecified gastritis type 07/13/2024 9:00 AM FOOD AND BEVERAGE ASSOCIATE COLONOSCOPY Iron deficiency anemia due to chronic blood loss documented as of this encounter Visit Diagnoses Not on filedocumented in this encounter Care Teams Wastewater Superintendent Relationship Specialty Start Date End Date Cherelle Corcoran MD PCP - General Family Medicine 08/30/19 Mark Queen MD Consulting Physician Infectious Diseases 01/10/20 documented as of this encounter
--- OUTSIDE RECORDS SUMMARY | 2024-07-04 04:14 | XMS_ITS | Encounter Summary ---
Author Organization [facility] Medical Group Address [address] [place] [address] Care Team Providers Care Imaging Analyst Name Role Phone Cherelle Corcoran MD Primary Care Pro vider Mark Queen MD Unavailable [phone] Encounter Details Date Type Department Care Team (Late st Contact Info) Description 03/01/2022 Orders Only [facility] Health Information Management [address] [place] [address] Scanning, Provider Social History Tobacco [...] on file Legal Sex Female 9:03 AM BELT OPERATOR Gender Identity Female 02/08/2020 6:39 PM CDT Sexual Orientation Not on file documented as of this encounter Plan of Treatment Upcoming Encounters Date Type Department Care Team (Latest Contact Info) Description 07/13/2024 9:00 AM BELT OPERATOR Hospital Encounter [facility] GI Lab [address] [place] [address] Jaya Grier MD [address] [facility] [address] [place] [address] 07/13/2024 9:00 AM BELT OPERATOR - 07/13/2024 9:30 AM BELT OPERATOR Surgery [facility] GI Lab [address] [place] [address] Jaya Grier MD [address] [facility] [address] [place] [address] ESOPHAGOGASTRODUODENOSCOPY Scheduled Procedures Name Priority Associated Diagnoses Date/Ti me ESOPHAGOGASTRODUODENOSCOPY Anemia, unspecified type Gastritis without bleeding, unspecified chronicity, unspecified gastritis type 07/13/2024 9:00 AM BELT OPERATOR COLONOSCOPY Iron deficiency anemia due to chronic blood loss documented as of this encounter Procedures Procedure Name Priority Date/Time Associated Diagnosis Comments SCAN - RADIOLOGY/IMAGING 03/01/2022 documented in this encounter Results * SCAN - RADIOLOGY/IMAGING (03/01/2022) Anatomical Region Laterality Modality Other us Provider Scanning Final Result documented in this encounter Visit Diagnoses Not on filedocumented in this encounter Care Teams Imaging Analyst Relationship Specialty Start Date End Date Cherelle Corcoran MD PCP - General Family Medicine 08/30/19 Mark Queen MD Consulting Physician Infectious Diseases 01/10/20 documented as of this encounter
--- OUTSIDE RECORDS SUMMARY | 2024-07-04 04:14 | XMS_ITS | Encounter Summary ---
Author Organization [facility] Home Care [facility] Address [address] [place] [address] Phone Care Team Providers Care Records Supervisor Name Role Phone Cherelle Corcoran MD Primary Care Pro vider Mark Queen MD Unavailable [phone] Reason for Visit * Auth/Cert Specialty Diagnoses / Procedures Referred By Maryse t Referred To Contact Referral ID Status Reason Start Date Expiration Date Visits Re quested Visits Authorized [id number] 1 1 Encounter Details Date Type Department Care Team (Late st Contact Info) Description 01/20/2022 10:30 AM CDT Home Care Visit [facility] [address] [address] [address] [place] [address] Diann Hernandez OT OT HOME VISIT Social [...] slept in a jail (including now)? No 09/10/2021 Comments No Sex and Gender Information Value Date Recorded Sex Assigned at Not on file Legal Sex Female 9:03 AM CUSTOM DRESSMAKER Gender Identity Female 02/08/2020 6:39 PM CDT Sexual Orientation Not on file documented as of this encounter Last Filed Vital Signs Vital Sign Reading Time Taken Comments Blood Pressure 124/62 01/20/2022 10:37 AM CDT Pulse 71 01/20/2022 10:37 AM CDT Temperature 36.4 ??C (97.6 ??F) 01/20/2022 10:37 AM C DT Respiratory Rate 18 01/20/2022 10:37 AM CDT Oxygen Saturation 98% 01/20/2022 10:37 AM CDT Inhaled Oxygen Concentration - - Weight - - Height - - Body Mass Index - - documented in this encounter Miscellaneous Notes * Home Health Plan for Next Visit - Diann Hernandez OT - 01/20/2022 10:30 AM CDT Reason for today's visit: energy conservation strategies, HEP. Discuss plan of care: patient Discharge planning: when OT goals are met, discharge from OT at next visit per pt request. Plan for next visit: HEP, safe transfers, discharge at next visit. documented in this encounter Plan of Treatment Upcoming Encounters Date Type Department Care Team (Latest Contact Info) Description 07/13/2024 9:00 AM CUSTOM DRESSMAKER Hospital Encounter [facility] GI Lab [address] [place] [address] Jaya Grier MD [facility] [facility] [address] [place] [address] 07/13/2024 9:00 AM CUSTOM DRESSMAKER - 07/13/2024 9:30 AM CUSTOM DRESSMAKER Surgery [facility] GI Lab [address] [place] [address] Jaya Grier MD [address] [facility] [address] [place] [address] ESOPHAGOGASTRODUODENOSCOPY Scheduled Procedures Name Priority Associated Diagnoses Date/Ti me ESOPHAGOGASTRODUODENOSCOPY Anemia, unspecified type Gastritis without bleeding, unspecified chronicity, unspecified gastritis type 07/13/2024 9:00 AM CUSTOM DRESSMAKER COLONOSCOPY Iron deficiency anemia due to chronic [...] home health visit Disciplines: SN, PT, OT, REVOLVING FIELD ASSEMBLER, SOCIAL WELFARE ADMINISTRATOR, Skilled Disciplines Monitor patient's vital signs every [...] visit during episode of care Description: Home food and beverage intern to measure vital signs during every home [...] setting Completed Patient is homebound due to unsteadiness, dependent upon walker for gait and transfers, requires assist to enter/leave home with 2 steps and no rails, leaving the home requires taxing effort. Monitor Vital Signs Description: Monitor blood pressure, pulse, oxygen saturation, respirations Problem:Monitor patient's vital signs every home health visit Goal:Measure vital signs during every home health visit during episode of care Completed Instruct Fall Prevention Description: Instruct patient/caregiver in methods to prevent falls Problem:Safety concerns Goal:Demonstrate use of safety precautions Completed Pt with no recent falls and no LOB episodes during mobility. Assess safety Description: Assess patient safety Problem:Safety concerns Goal:Demonstrate use of safety precautions Completed Pt using FWW for mobility purposes in home. Instruct on the prevention of deep vein [...] has been reduced or controlled Completed Pt with no reports of pain. Pressure Relief Description: Instruct patient/caregiver and perform pressure relief techniques Problem:OT Positioning/Pressure Relief Completed Pt re-educated on pressure relief strategies by standing up every 30 minutes to 1 hour to decrease risk for pressure sore development on pt's buttocks. Pt verbal. understanding. Home Exercise Program (HEP) Description: Instruct patient/caregiver in HEP completion. Problem:OT Activity Tolerance/Energy Conservation Completed Pt provided with yellow therband this date to allow pt with more ROM during UB exercises compared to movements with green theraband. Pt required min A for biceps and triceps exercises and verbalized understanding of movements in prep for discharge at next visit. Energy Conservation Education Description: Instruct patient/caregiver in techniques for improved activity tolerance Problem:OT Activity Tolerance/Energy Conservation Completed Pt educated on pacing of activities throughout the week to prevent over-fatigue. Pt reported being more tired this date. Pt educated on taking small/short walks throughout the day, especially after meals, to help with energy regulation and BS monitoring. Adaptive Equipment/DME Education Description: Recommend and assist with obtaining assistive devices/DME. Problem:OT Impaired ADLs Completed Pt's family has yet to obtain shower chair for pt to use during bathing routine. Skilled assessment wound Description: Full wound assessment [...] Risk of Infection Goal:Knowledgeable of infection Completed Pt aware of s/s of infection. documented in this encounter Care Teams Records Supervisor Relationship Specialty Start Date End Date Cherelle Corcoran MD PCP - General Family Medicine 08/30/19 Mark Queen MD Consulting Physician Infectious Diseases 01/10/20 documented as of this encounter
--- OUTSIDE RECORDS SUMMARY | 2024-07-04 04:14 | XMS_ITS | Encounter Summary ---
Author Organization [facility] Home Care [facility] es Address [address] [place] [address] Phone Care Team Providers Care Barrel Stave Inspector Name Role Phone Cherelle Corcoran MD Primary Care Pro vider Mark Queen MD Unavailable [phone]- [phone] Reason for Visit * Auth/Cert Specialty Diagnoses / Procedures Referred By Maryse t Referred To Contact Referral ID Status Reason Start Date Expiration Date Visits Re quested Visits Authorized [id number] 1 1 Encounter Details Date Type Department Care Team (Late st Contact Info) Description 01/16/2022 9:00 AM CDT Home Care Visit [facility] [address] [address] [address] [place] [address] Diann Hernandez OT OT HOME VISIT Social [...] you attend chur ch or synagogue services? 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 Discuss plan of care with patient and pt's son. Discharge planning: when OT goals are met. Plan for next visit: shower seat transfer practice (if available), progressing HEP toward independence with no cueing from OT. documented in this encounter Plan of Treatment Upcoming Encounters Date Type Department Care Team (Latest Contact Info) Description 07/13/2024 9:00 AM FIELD MARKETING LEAD Hospital Encounter [facility] GI Lab [address] [place] [address] Jaya Grier MD [address] [place] [address] [address] [place] [address] 07/13/2024 9:00 AM FIELD MARKETING LEAD - 07/13/2024 9:30 AM FIELD MARKETING LEAD Surgery [facility] GI Lab [address] [place] [address] Jaya Grier MD [facility] [facility] [address] [place] [address] ESOPHAGOGASTRODUODENOSCOPY Scheduled Procedures Name Priority Associated Diagnoses Date/Ti pa ESOPHAGOGASTRODUODENOSCOPY Anemia, unspecified type Gastritis without bleeding, unspecified chronicity, unspecified gastritis type 07/13/2024 9:00 AM FIELD MARKETING LEAD COLONOSCOPY Iron deficiency anemia due to [...] home health visit Disciplines: SN, PT, OT, CERTIFIED PROFESSIONAL CONTROLLER, HARNESS WORKER, Skilled Disciplines Monitor patient's vital signs every [...] tolerance for functional activity 01/02/2022 Active - 1 problem intervention scheduled/documen bruno in this visit OT Impaired ADLs Disciplines: Occupational Therapy Impaired independence in self-care, ADLs. 01/02/2022 Active - 2 problem interventions scheduled/documen bruno in this visit Wound Care [...] visit during episode of care Description: Home rail car mechanic to measure vital signs during every [...] health visit during episode of care Completed Pt's vital signs taken however note did not save when computer . Instruct Fall Prevention Description: Instruct patient/caregiver in methods to prevent falls Problem:Safety concerns Goal:Demonstrate use of safety precautions Completed Pt consistently uses her FWW for mobility within the home and reports no dizziness with changes in body position. Assess safety Description: Assess patient safety Problem:Safety concerns Goal:Demonstrate use of safety precautions Completed Pt and pt's son educated on obtaining and placing tennis balls on back of FWW legs to decrease noise and bumping of walker against floor during functional mobility. Pt's son verb. understanding and stated he would purchase tennis balls for this purpose. Instruct on the prevention of deep vein thrombosis Description: Instruct patient/caregiver on signs and symptoms, preventative measures related to DVT, and provide ongoing home support based on patient needs Problem:DVT Prevention and Management Goal:Demonstrate knowledge of anticoagulant therapy Completed Pt aware of s/s of DVTs. Instruct on pain management techniques Description: Instruct in pharmacologic and nonpharmacologic pain management techniques. Problem:Pain Goal:Report that pain has been reduced or controlled Completed Pt uses tylenol when needed for pain management. Pressure Relief Description: Instruct patient/caregiver and perform pressure relief techniques Problem:OT Positioning/Pressure Relief Completed OT re-educated on benefits of elevating L leg on pillow while in bed to prevent pressure on L sore on heel throughout the night. Pt verbalized understanding. Home Exercise Program (HEP) Description: Instruct patient/caregiver in HEP completion. Problem:OT Activity Tolerance/Energy Conservation Completed Pt compelted 4 UB HEP exercises with green theraband. Pt could benefit from use of box spring frame builder resistance however pt is attached to green band. Pt required min A for completion of exercises with proper form and technique and for breathing and counting exercises throughout. Transfer Training Description: Instruct patient/caregiver and perform transfer training. Problem:OT Impaired ADLs Completed Patient completed 5 sit-stands from recliner chair with cueing for posture and deep breaths in stance. OT and pt's son encouraged pt throughout and pt demo'd good placement of hands on arm rests of chair during exercise. Adaptive Equipment/DME Education Description: Recommend and assist with obtaining assistive devices/DME. Problem:OT Impaired ADLs Completed OT educated pt's son on need for shower seat to increase pt's safety during bathing routine. Pt's son to check on status of ordering shower chair. Skilled assessment wound Description: Full wound assessment [...] infection. documented in this encounter Care Teams Barrel Stave Inspector Relationship Specialty Start Date End Date Cherelle Corcoran MD PCP - General Family Medicine 08/30/19 Mark Queen MD Consulting Physician Infectious Diseases 01/10/20 documented as of this encounter
--- OUTSIDE RECORDS SUMMARY | 2024-07-04 04:14 | XMS_ITS | Encounter Summary ---
Author Organization [facility] Healthcare Address [address] [place] [address] Care Team Providers Care Warp Tester Name Role Phone Cherelle Corcoran MD Primary Care Pro vider Mark Queen MD Unavailable [phone] Reason for Referral * Diagnostic Imaging (Routine) - Closed Specialty Diagnoses / Procedures Referred By Maryse lama Referred To Contact Diagnoses Left hip pain Procedures XR Hip Left 2+ Vw Cherelle Corcoran MD Phone: tel: fax: [address] [address] Referral ID Status Reason Start Date Expiration Date Visits Re quested Visits Authorized [id number] Closed 01/14/2022 02/13/2023 1 1 Reason for Visit * Diagnostic Imaging (Routine) - Closed Specialty Diagnoses / Procedures Referred By Maryse lama Referred To Contact Diagnoses Left hip pain Procedures XR Hip Left 2+ Vw Chreelle Corcoran MD Phone: tel: fax: [address] [phone] Referral ID Status Reason Start Date Expiration Date Visits Re quested Visits Authorized [id number] Closed 01/14/2022 02/13/2023 1 1 Encounter Details Date Type Department Care Team (Latest Contact Info) Description 01/14/2022 10:07 AM CDT - 01/14/2022 11:59 PM CDT Hospital Encounter [facility] MOB 1 DIAG IMG [address] [place] [address] Left hip pain Discharge Disposition: Discharge to home or [...] any clubs o r organizations such as amish groups, unions, fraternal or athletic groups, or [...] on file Legal Sex Female 9:03 AM PAINTER AIRBRUSH Gender Identity Female 02/08/2020 6:39 PM CDT Sexual Orientation Not on file documented as of this encounter Medications at Time of Discharge lidocaine (LIDODERM) 5 %Indications:Chron ic back pain, unspecified back location, unspecified back pain laterality Place 1 patch on the skin daily Apply to painful area 12 hours per day, remove for 12 hours. 90 patch 1 04/05/2021 2 acetaminophen (TYLENOL) 325 mg tablet Take 2 tablets (650 mg total) by mouth every 6 (six) hours as needed for pain 3 albuterol HFA (ProAir HFA) 90 mcg/actuation inhalerIndications :Wheezing Inhale 2 puffs every 4 (four) hours as needed for wheezing or shortness of breath 8.5 g 09/25/2021 3 apixaban (ELIQUIS) 5 mg tablet 5 mg every 12 (twelve) hours 2 atorvastatin (LIPITOR) 20 mg tablet Take 1 tablet (20 mg total) by mouth daily 90 tablet 1 12/30/2021 2 BD Arlyn 2nd Gen Pen Needle 32 gauge x needleIndications: Type 2 diabetes mellitus with diabetic neuropathy, with long-term current use of insulin (HCC) USE TO INJECT BASAGLAR EVERY NIGHT AT BEDTIME 06/25/2021 3 blood pressure monitor kit Check BP as instructed 1 kit 03/20/2021 3 capsaicin (ZOSTRIX) 0.025 % cream Apply topically 2 (two) times a day 60 g 08/13/2021 3 carvediloL (COREG) 3.125 mg tabletIndications: Hypertension associated with diabetes (HCC) Take 1 tablet (3.125 mg total) by mouth 2 (two) times a day with meals 60 tablet 1 09/25/2021 2 conner.stocking,t high,reg,med miscIndications:Pe ripheral edema Wear as much as possible 2 each 1 05/28/2021 4 dulaglutide (Trulicity) 0.75 mg/0.5 mL pen injectorIndication s:Type 2 diabetes mellitus with diabetic neuropathy, with long-term current use of insulin (HCC) Inject 0.5 mL (0.75 mg total) under the skin once a week DUE FOR FOLLOW UP 2 mL 11/11/2021 2 famotidine (PEPCID) 10 mg tabletIndications: Gastroesophageal reflux disease, unspecified whether esophagitis present Take 1 tablet (10 mg total) by mouth nightly 90 tablet 01/14/2022 2 ferrous sulfate 325 mg (65 mg of elemental iron) tabletIndications: Iron Deficiency Anemia Take 1 tablet (325 mg total) by mouth daily with breakfast 90 tablet 1 01/09/2022 3 flash glucose scanning reader (FreeStyle Madhav 2 Vestal) miscIndications:Ty pe 2 diabetes mellitus with diabetic [...] ADMELOG) 100 unit/mL pen for injection Inject 0-10 Units under the skin 3 (three) times a day with meals 15 mL 09/18/2021 2 ketoconazole (NIZORAL) 2 % creamIndications:P ressure injury [...] total) by mouth nightly 30 capsule 2 01/14/2022 2 risperiDONE (RisperDAL) 2 mg tablet Take 1 tablet (2 mg total) by mouth nightly 30 tablet 11 08/07/2021 3 risperiDONE (RisperDAL) 2 mg tablet Take 1 tablet (2 mg total) by mouth 12/21/2021 3 syringe with needle, insulin (INSULIN SYRINGE-NEEDLE U-100 MISC) 3 times a day 09/12/2017 3 documented as of this encounter Discharge Disposition Disposition Code Departure Means Destination Discharge to home or self care documented in this encounter Plan of Treatment Upcoming Encounters Date Type Department Care Team (Latest Contact Info) Description 07/13/2024 9:00 AM PAINTER AIRBRUSH Hospital Encounter [facility] GI Lab [address] [place] [address] Jaya Grier MD [address] [place] [address] [address] [place] [address] 07/13/2024 9:00 AM PAINTER AIRBRUSH - 07/13/2024 9:30 AM PAINTER AIRBRUSH Surgery [facility] GI Lab [address] [place] [address] Jaya Grier MD [address] [facility] [address] [place] [id number] ESOPHAGOGASTRODUODENOSCOPY Scheduled Procedures Name Priority Associated Diagnoses Date/Ti me ESOPHAGOGASTRODUODENOSCOPY Anemia, unspecified type Gastritis without bleeding, unspecified chronicity, unspecified gastritis type 07/13/2024 9:00 AM PAINTER AIRBRUSH COLONOSCOPY Iron deficiency anemia due to chronic blood loss documented as of this encounter Procedures Procedure Name Priority Date/Time Associated Diagnosis Comments XR HIP LEFT 2 OR 3 VIEWS Schedule RA, Read RA (Appt Today, Awaiting Results) 01/14/2022 10:22 AM CDT Left hip pain documented in this encounter Results * XR Hip Left 2+ Vw (01/14/2022 10:22 AM CDT) Anatomical Region Laterality Modality Lower Extremities, Hip, Pelvis Left C omputed Radiography 01/14/2022 11:2 0 AM CDT Narrative 01/14/2022 11:21 AM CDT EXAM DESCRIPTION: XR HIP LEFT 2 OR 3 VIEWS REASON FOR STUDY: Hip trauma, initial exam ?? Several falls x 2 weeks ago, ??general hip pain ? TECHNIQUE: Two views submitted with comparison CT 01/19/2017. FINDINGS: There are no fractures. ??Alignment is normal. ??There is mild left hip osteoarthritis. 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 ??Arterial atherosclerosis is noted. IMPRESSION: Mild left hip osteoarthritis. THIS IS AN ELECTRONICALLY VERIFIED FINAL REPORT 01/14/2022 11:21 AM - Electronically signed by ??Larry Lowe M.D. MF: HANNAH D: ??01/14/2022 11:21 AM T: ??01/14/2022 11:21 AM Report ID: [id number] Reading Location: ??[id number] Procedure Note Larry Lowe MD - 01/14/2022 EXAM DESCRIPTION: XR HIP LEFT 2 OR 3 VIEWS REASON FOR STUDY: Hip trauma, initial exam Several falls x 2 weeks ago, general hip pain TECHNIQUE: Two views submitted with comparison CT 01/19/2017. FINDINGS: There are no fractures. Alignment is normal. There is mildleft hip osteoarthritis. Pubic symphysis osteoarthritis and lumbardegenerative disc disease is present. Arterial atherosclerosis is noted. IMPRESSION: Mild left hip osteoarthritis. THIS IS AN ELECTRONICALLY VERIFIED FINAL REPORT 01/14/2022 11:21 AM - Electronically signed by Larry Lowe M.D. MF: HANNAH Report ID: [id number] Reading Location: [id number] [place] Cherelle Corcoran MD IMG XR PROCEDURES Final Result documented in this encounter Visit Diagnoses Diagnosis Left hip pain Pain in joint, pelvic region and thigh Anemia, unspecified type Gastritis without bleeding, unspecified chronicity, unspecified gastritis type documented in this encounter Care Teams Warp Tester Relationship Specialty Start Date End Date Cherelle Corcoran MD PCP - General Family Medicine 08/30/19 Mark Queen MD Consulting Physician Infectious Diseases 01/10/20 documented as of this encounter
--- OUTSIDE RECORDS SUMMARY | 2024-07-04 04:14 | XMS_ITS | Encounter Summary ---
Author Organization [facility] Address [address] [place] [address] Phone Care Team Providers Care Process Improvement Specialist Name Role Phone Cherelle Corcoran MD Primary Care Pro vider Mark Queen MD Unavailable [phone] Reason for Visit * Auth/Cert Specialty Diagnoses / Procedures Referred By Maryse lama Referred To Contact Referral ID Status Reason Start Date Expiration Date Visits Re quested Visits Authorized [id number] 1 1 Encounter Details Date Type Department Care Team (Late st Contact Info) Description 01/06/2022 Home Care Visit [facility] - [address] [address] [address] [place] [address] Diann Hernandez OT TELEPHONE ENCOUNTER Social History Tobacco Use Types [...] you attend chur ch or mormon services? Never 09/10/2021 Do you belong to [...] on file Legal Sex Female 9:03 AM KITCHEN HELP HANDYMAN Gender Identity Female 02/08/2020 6:39 PM CDT Sexual Orientation Not on file documented as of this encounter Plan of Treatment Upcoming Encounters Date Type Department Care Team (Latest Contact Info) Description 07/13/2024 9:00 AM KITCHEN HELP HANDYMAN Hospital Encounter [facility] [address] [place] [address] Jaya Grier MD [address] [facility] [address] [place] [id number] 07/13/2024 9:00 AM KITCHEN HELP HANDYMAN - 07/13/2024 9:30 AM KITCHEN HELP HANDYMAN Surgery [facility] [address] [place] [address] Jaya Grier MD [facility] [address] [place] [id number] ESOPHAGOGASTRODUODENOSCOPY Scheduled Procedures Name Priority Associated Diagnoses Date/Ti me ESOPHAGOGASTRODUODENOSCOPY Anemia, unspecified type Gastritis without bleeding, unspecified chronicity, unspecified gastritis type 07/13/2024 9:00 AM KITCHEN HELP HANDYMAN COLONOSCOPY Iron deficiency anemia due to chronic blood loss documented as of this encounter Visit Diagnoses Not on filedocumented in this encounter Care Teams Process Improvement Specialist Relationship Specialty Start Date End Date Cherelle Corcoran MD PCP - General Family Medicine 08/30/19 Mark Queen MD Consulting Physician Infectious Diseases 01/10/20 documented as of this encounter
--- OUTSIDE RECORDS SUMMARY | 2024-07-04 04:14 | XMS_ITS | Encounter Summary ---
Author Organization [facility] Address [address] [place] [address] Care Team Providers Care Collections Curator Name Role Phone Cherelle Corcoran MD Primary Care Pro vider Mark Queen MD Unavailable [phone] Reason for Visit * Reason Comments Follow-up Med Management 7 Encounter Details Date Type Department Care Team (Latest Contact Info) Description 03/19/2022 3:15 PM CDT Telemedicine [facility] [address] [address] [place] [address] [address] Schizoaffective disorder, bipolar type (CMS/HCC) (HCC) (Primary Dx) Social History Tobacco Use [...] on file Legal Sex Female 9:03 AM MERCURY PURIFIER Gender Identity Female 02/08/2020 6:39 PM CDT Sexual Orientation Not on file documented as of this encounter Ordered Prescriptions Prescription Sig Dispense Quantity Refills Last Filled Start Date End Date benztropine (COGENTIN) 1 mg tablet Take 1 tablet (1 mg total) by mouth nightly 30 tablet 11 03/19/2022 3 documented in this encounter Progress Notes * Adryan Swenson MD - 03/19/2022 3:15 PM CDT Images from the original note were not included. This was a telemedicine visit with Barbara Chakraborty alone which took place via real- time video connection with [employer]. During the visit, I was located at home in [place], [place], and the patient was located at home in the [facility]. Time started: 3:15 p.m. Time ended: 3:30 p.m. My total encounter time on 03/19/2022 was 20 minutes which was spent in the activities documented inthe note. This includes time spent prior to the visit and after the visit in direct care of the patient. This time does not include time spent in any separately reportable services.. The patient has been informed that the visit may not be secure and acknowledged the information. I have explained the option of participating in a telephone or video visit during the COVID-19 public health emergency to the patient. After being given an opportunity to ask questions about and discuss this type of visit, the patient verbally consented to proceeding with the telephone/video visit.The patient understands that this service replaces an office visit and they may be billed and/or responsible for any applicable copayments. Adryan Swenson MD Assessment/Plan Barbara Chakraborty is a 71 y.o. Black Or female. Diagnoses and all orders for this visit: Schizoaffective disorder, bipolar type (CMS/HCC) (HCC) (Primary) Assessment & Plan: Chronic, persistent, but functioning at baseline. Does not report any mood related symptoms or psychosis. Having some extrapyramidal side effects for which Cogentin has been prescribed. Continue current management. Continue to monitor. Other orders - benztropine (COGENTIN) 1 mg tablet; Take 1 tablet (1 mg total) by mouth nightly Full informed consent provided by the patient [...] ID: Barbara Chakraborty is a 71 y.o. Black Or female. CHIEF COMPLAINT Chief Complaint Patient presents with Follow-up [facility] Management 7 HISTORY OF PRESENT ILLNESS 71 y.o. female who is currently being seen [...] medications. 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 [place] went to the [place] on [place] Her appetite is not increasing. She is [...] Associated poorly controlled diabetes. Only previous psychiatric [id number] or 1997. Records unavailable to me at [...] Denies any nicotine or cigarettes. Born in [place]. Father was reeves and alcoholic. Positive relationship [...] gets in her moods She worked in [employer] at [employer] [employer] and [employer] - daughter - provides collateral [...] for difficulty urinating, dysuria and hematuria. Musculoskeletal: Negative for arthralgias, back pain, gait problem, joint swelling and myalgias. Skin: Positive for wound. Negative for color change and rash. Allergic/Immunologic: Negative. Neurological: Positive for numbness. Psychiatric/Behavioral: Positive for dysphoric mood. Negative for agitation, behavioral problems, confusion, decreased concentration, hallucinations (they're out to get me or harm me), self-injury, sleep disturbance and suicidal ideas. The patient is nervous/anxious. The patient is not hyperactive. PHYSICAL EXAM Physical Exam [...] toe amp/ foot debridement/ Dr. Anat Pelayo FAMILY HISTORY Family History Problem Relation Age of Onset Stomach cancer Father SOCIAL HISTORY Social History Tobacco Use Smoking status: Never Smoker Smokeless tobacco: Never Used Substance Use Topics Alcohol use: Not Currently Drug use: Never LABS Lab Results Component Value Date WBC 10.7 (H) 05/08/2022 HGB 9.1 (L) 05/08/2022 HCT 29.2 (L) 05/08/2022 MCV 95.1 05/08/2022 RDWSD 53.6 (H) 05/08/2022 LABPLAT 330 05/08/2022 Lab Results Component Value Date ALT 26 05/08/2022 AST 23 05/08/2022 ALKPHOS 129 05/08/2022 BILITOT 0.2 05/08/2022 ALBUMIN 3.6 05/08/2022 Lab Results Component Value Date SODIUM 143 05/13/2022 POTASSIUM 4.2 05/13/2022 CO2 29 05/13/2022 BUNSER 39 (H) 05/13/2022 GLUCOSE 150 05/13/2022 CREATININE 1.90 (H) 05/13/2022 CHLORIDE 102 05/13/2022 CALCIUM 10.0 05/13/2022 PROTEIN 7.6 01/19/2017 Lab on 01/14/2022 Component Date Value Sodium 01/14/2022 140 Potassium, pl 01/14/2022 4.7 Chloride 01/14/2022 101 CO2 01/14/2022 28 Anion gap 01/14/2022 11 BUN 01/14/2022 46 (H) Creatinine 01/14/2022 1.80 (H) Glucose 01/14/2022 270 (H) Calcium 01/14/2022 9.8 eGFR 01/14/2022 30 Lab on 12/18/2021 Component Date Value WBC 12/18/2021 9.4 Hgb 12/18/2021 9.3 (L) Hct 12/18/2021 30.0 (L) Plt 12/18/2021 248 MPV 12/18/2021 11.4 RBC 12/18/2021 3.30 (L) MCV 12/18/2021 90.9 MCH 12/18/2021 28.2 MCHC 12/18/2021 31.0 (L) RDW CV 12/18/2021 16.0 (H) RDW SD 12/18/2021 52.6 (H) NRBC abs 12/18/2021 0.00 Sodium 12/18/2021 137 Potassium, pl 12/18/2021 5.5 (H) Chloride 12/18/2021 103 CO2 12/18/2021 20 (L) Anion gap 12/18/2021 14 BUN 12/18/2021 63 (H) Creatinine 12/18/2021 2.00 (H) Glucose 12/18/2021 356 (H) Calcium 12/18/2021 9.5 Iron 12/18/2021 69 TIBC 12/18/2021 217 (L) Transferrin saturation 12/18/2021 32 Neutrophil abs 12/18/2021 5.9 Imm gran abs 12/18/2021 0.0 Lymphocyte abs 12/18/2021 2.6 Monocyte abs 12/18/2021 0.7 Eosinophil abs 12/18/2021 0.1 Basophil abs 12/18/2021 0.0 Neutrophil pct 12/18/2021 62.7 Imm gran pct 12/18/2021 0.4 Lymphocyte pct 12/18/2021 28.0 Monocyte pct 12/18/2021 7.1 Eosinophil pct 12/18/2021 1.5 Basophil pct 12/18/2021 0.3 eGFR 12/18/2021 26 Admission on 11/15/2021, Discharged on 11/26/2021 Component Date Value Glucose, POC 11/14/2021 175 WBC 11/15/2021 13.6 (H) Hgb 11/15/2021 8.5 (L) Hct 11/15/2021 27.5 (L) Plt 11/15/2021 367 MPV 11/15/2021 10.4 RBC 11/15/2021 3.05 (L) MCV 11/15/2021 90.2 MCH 11/15/2021 27.9 MCHC 11/15/2021 30.9 (L) RDW CV 11/15/2021 14.5 RDW SD 11/15/2021 47.3 NRBC abs 11/15/2021 0.00 Sodium 11/15/2021 136 Potassium, pl 11/15/2021 5.0 (H) Chloride 11/15/2021 103 CO2 11/15/2021 24 Anion gap 11/15/2021 9 BUN 11/15/2021 72 (H) Creatinine 11/15/2021 2.15 (H) Glucose 11/15/2021 188 Calcium 11/15/2021 10.3 Bilirubin, total 11/15/2021 0.2 Protein, pl 11/15/2021 7.7 Albumin 11/15/2021 3.5 Alk phos 11/15/2021 104 ALT 11/15/2021 19 AST 11/15/2021 25 NT-proBNP 11/15/2021 175 Trop I hs 11/15/2021 <4 Neutrophil abs 11/15/2021 9.1 (H) Imm gran abs 11/15/2021 0.1 Lymphocyte abs 11/15/2021 2.9 Monocyte abs 11/15/2021 1.2 (H) Eosinophil abs 11/15/2021 0.3 Basophil abs 11/15/2021 0.0 Neutrophil pct 11/15/2021 66.8 Imm gran pct 11/15/2021 0.6 Lymphocyte pct 11/15/2021 21.5 Monocyte pct 11/15/2021 8.5 Eosinophil pct 11/15/2021 2.3 Basophil pct 11/15/2021 0.3 Trop I hs 11/15/2021 4 Trop I hs delta 11/15/2021 0 Trop I hs interp 11/15/2021 Insignificant eGFR 11/15/2021 24 (L) COVID-19 RNA 11/15/2021 Negative Glucose, POC 11/15/2021 190 Glucose, POC 11/15/2021 154 Hgb A1C 11/15/2021 8.2 (H) Estimated Average Glucose 11/15/2021 189 Glucose, POC 11/15/2021 116 Influenza A RNA 11/16/2021 Not Detected Influenza B RNA 11/16/2021 Not Detected RSV RNA 11/16/2021 Not Detected COVID-19 RNA 11/16/2021 Not Detected Coronavirus 229E RNA 11/16/2021 Not Detected Coronavirus HKU1 RNA 11/16/2021 Not Detected Coronavirus NL63 RNA 11/16/2021 Not Detected Coronavirus OC43 RNA 11/16/2021 Not Detected Adenovirus DNA 11/16/2021 Not Detected Metapneumovirus RNA 11/16/2021 Detected (A) Rhinovirus/Enterovirus R* 11/16/2021 Not Detected Parainfluenza 1 RNA 11/16/2021 Not Detected Parainfluenza 2 RNA 11/16/2021 Not Detected Parainfluenza 3 RNA 11/16/2021 Not Detected Parainfluenza 4 RNA 11/16/2021 Not Detected B. pertussis DNA 11/16/2021 Not Detected B. parapertussis DNA 11/16/2021 Not Detected C. pneumoniae DNA 11/16/2021 Not Detected M. pneumoniae DNA 11/16/2021 Not Detected Glucose, POC 11/15/2021 113 Glucose, POC 11/15/2021 159 Glucose, POC 11/16/2021 231 (H) Glucose, POC 11/16/2021 214 (H) Glucose, POC 11/16/2021 260 (H) Glucose, POC 11/16/2021 241 (H) Glucose, POC 11/16/2021 184 Glucose, POC 11/17/2021 132 Glucose, POC 11/17/2021 229 (H) Glucose comment 1 11/17/2021 Glu2: RN/MD Notified Glucose, POC 11/17/2021 202 (H) Glucose comment 1 11/17/2021 Glu2: RN/MD Notified Sodium 11/18/2021 142 Potassium, pl 11/18/2021 5.0 (H) Chloride 11/18/2021 107 CO2 11/18/2021 25 Anion gap 11/18/2021 10 BUN 11/18/2021 65 (H) Creatinine 11/18/2021 2.00 (H) Glucose 11/18/2021 172 Calcium 11/18/2021 9.6 WBC 11/18/2021 11.1 (H) Hgb 11/18/2021 8.1 (L) Hct 11/18/2021 25.8 (L) Plt 11/18/2021 371 MPV 11/18/2021 10.3 RBC 11/18/2021 2.88 (L) MCV 11/18/2021 89.6 MCH 11/18/2021 28.1 MCHC 11/18/2021 31.4 (L) RDW CV 11/18/2021 14.6 RDW SD 11/18/2021 48.0 NRBC abs 11/18/2021 0.00 Glucose, POC 11/17/2021 234 (H) Neutrophil abs 11/18/2021 6.7 (H) Imm gran abs 11/18/2021 0.1 Lymphocyte abs 11/18/2021 3.3 Monocyte abs 11/18/2021 0.7 Eosinophil abs 11/18/2021 0.3 Basophil abs 11/18/2021 0.1 Neutrophil pct 11/18/2021 60.6 Imm gran pct 11/18/2021 0.5 Lymphocyte pct 11/18/2021 29.3 Monocyte pct 11/18/2021 6.2 Eosinophil pct 11/18/2021 2.9 Basophil pct 11/18/2021 0.5 eGFR 11/18/2021 26 (L) Glucose, POC 11/18/2021 180 Glucose comment 1 11/18/2021 Glu2: RN/MD Notified Glucose, POC 11/18/2021 145 Glucose, POC 11/18/2021 191 Glucose comment 1 11/18/2021 Glu2: RN/MD Notified Glucose, POC 11/18/2021 210 (H) Glucose, POC 11/19/2021 184 Glucose, POC 11/19/2021 176 Glucose, POC 11/19/2021 214 (H) Glucose, POC 11/19/2021 143 Glucose, POC 11/19/2021 185 Glucose, POC 11/20/2021 158 Glucose, POC 11/20/2021 182 Glucose, POC 11/20/2021 222 (H) Glucose, POC 11/20/2021 113 Glucose, POC 11/20/2021 98 Glucose, POC 11/20/2021 142 Glucose, POC 11/21/2021 128 Glucose, POC 11/21/2021 160 Glucose, POC 11/21/2021 180 Glucose, POC 11/21/2021 210 (H) Glucose, POC 11/22/2021 156 Glucose, POC 11/22/2021 214 (H) Glucose, POC 11/22/2021 147 Glucose, POC 11/22/2021 115 Glucose, POC 11/23/2021 131 Glucose, POC 11/23/2021 169 Glucose, POC 11/23/2021 192 Glucose comment 1 11/23/2021 Glu2: RN/ Notified Glucose, POC 11/23/2021 203 (H) Glucose, POC 11/24/2021 187 Glucose, POC 11/24/2021 226 (H) Glucose, POC 11/24/2021 125 Glucose, POC 11/24/2021 104 Glucose, POC 11/24/2021 168 Glucose, POC 11/25/2021 140 Glucose, POC 11/25/2021 224 (H) Sodium 11/25/2021 141 Potassium, pl 11/25/2021 4.1 Chloride 11/25/2021 112 (H) CO2 11/25/2021 21 (L) Anion gap 11/25/2021 8 BUN 11/25/2021 63 (H) Creatinine 11/25/2021 1.82 (H) Glucose 11/25/2021 135 Calcium 11/25/2021 9.2 WBC 11/25/2021 10.2 (H) Hgb 11/25/2021 7.9 (L) Hct 11/25/2021 24.9 (L) Plt 11/25/2021 323 MPV 11/25/2021 11.1 RBC 11/25/2021 2.79 (L) MCV 11/25/2021 89.2 MCH 11/25/2021 28.3 MCHC 11/25/2021 31.7 (L) RDW CV 11/25/2021 14.9 RDW SD 11/25/2021 48.8 (H) NRBC abs 11/25/2021 0.00 Glucose, POC 11/25/2021 212 (H) Glucose, POC 11/25/2021 179 eGFR 11/25/2021 29 (L) Glucose, POC 11/26/2021 108 Glucose, POC 11/26/2021 165 Lab on 10/16/2021 Component Date Value PTH 10/16/2021 40 Sodium 10/16/2021 143 Potassium, pl 10/16/2021 4.3 Chloride 10/16/2021 107 CO2 10/16/2021 26 Anion gap 10/16/2021 10 BUN 10/16/2021 37 (H) Creatinine 10/16/2021 1.70 (H) Glucose 10/16/2021 92 Calcium 10/16/2021 9.5 WBC 10/16/2021 9.1 Hgb 10/16/2021 8.0 (L) Hct 10/16/2021 26.6 (L) Plt 10/16/2021 330 MPV 10/16/2021 10.7 RBC 10/16/2021 2.79 (L) MCV 10/16/2021 95.3 MCH 10/16/2021 28.7 MCHC 10/16/2021 30.1 (L) RDW CV 10/16/2021 15.4 (H) RDW SD 10/16/2021 53.5 (H) NRBC abs 10/16/2021 0.00 Vitamin B12 10/16/2021 772 Iron 10/16/2021 49 TIBC 10/16/2021 255 Transferrin saturation 10/16/2021 19 (L) Neutrophil abs 10/16/2021 5.4 Imm gran abs 10/16/2021 0.0 Lymphocyte abs 10/16/2021 2.7 Monocyte abs 10/16/2021 0.8 Eosinophil abs 10/16/2021 0.2 Basophil abs 10/16/2021 0.0 Neutrophil pct 10/16/2021 59.3 Imm gran pct 10/16/2021 0.4 Lymphocyte pct 10/16/2021 29.2 Monocyte pct 10/16/2021 8.3 Eosinophil pct 10/16/2021 2.4 Basophil pct 10/16/2021 0.4 eGFR 10/16/2021 32 Office Visit on 10/01/2021 Component Date Value Glucose Blood, POC 10/01/2021 186 Hemoglobin A1C, POC 10/01/2021 7.5 Lab on 09/25/2021 Component Date Value WBC 09/25/2021 11.0 (H) Hgb 09/25/2021 7.7 (L) Hct 09/25/2021 25.0 (L) Plt 09/25/2021 330 MPV 09/25/2021 10.9 RBC 09/25/2021 2.64 (L) MCV 09/25/2021 94.7 MCH 09/25/2021 29.2 MCHC 09/25/2021 30.8 (L) RDW CV 09/25/2021 15.8 (H) RDW SD 09/25/2021 54.5 (H) NRBC abs 09/25/2021 0.00 Sodium 09/25/2021 143 Potassium, pl 09/25/2021 5.0 (H) Chloride 09/25/2021 107 CO2 09/25/2021 24 Anion gap 09/25/2021 12 BUN 09/25/2021 55 (H) Creatinine 09/25/2021 2.00 (H) Glucose 09/25/2021 230 (H) Calcium 09/25/2021 9.6 Phosphorus, pl 09/25/2021 3.9 Magnesium 09/25/2021 2.6 (H) Neutrophil abs 09/25/2021 6.9 (H) Imm gran abs 09/25/2021 0.1 Lymphocyte abs 09/25/2021 2.9 Monocyte abs 09/25/2021 0.7 Eosinophil abs 09/25/2021 0.3 Basophil abs 09/25/2021 0.1 Neutrophil pct 09/25/2021 62.8 Imm gran pct 09/25/2021 0.6 Lymphocyte pct 09/25/2021 26.4 Monocyte pct 09/25/2021 6.6 Eosinophil pct 09/25/2021 3.1 Basophil pct 09/25/2021 0.5 eGFR 09/25/2021 26 No results displayed because visit has over 200 results. Lab on 09/06/2021 Component Date Value NT-proBNP 09/06/2021 522 (H) Sodium 09/06/2021 143 Potassium, pl 09/06/2021 4.6 Chloride 09/06/2021 109 CO2 09/06/2021 23 Anion gap 09/06/2021 11 BUN 09/06/2021 50 (H) Creatinine 09/06/2021 2.10 (H) Glucose 09/06/2021 247 (H) Calcium 09/06/2021 9.1 Bilirubin, total 09/06/2021 0.2 Protein, pl 09/06/2021 7.1 Albumin 09/06/2021 3.6 Alk phos 09/06/2021 134 (H) ALT 09/06/2021 17 AST 09/06/2021 17 eGFR 09/06/2021 25 Lab on 09/02/2021 Component Date Value TSH 09/02/2021 1.52 Iron 09/02/2021 30 (L) TIBC 09/02/2021 188 (L) Transferrin saturation 09/02/2021 16 (L) Office Visit on 08/19/2021 Component Date Value Glucose Blood, POC 08/19/2021 260 There may be more visits with results that are not included. Adryan Swenson MD [facility] Office: [facility] PUR[facility]IER documented in this encounter Miscellaneous Notes * Assessment & Plan Note - Adryan Swenson MD - 06/13/2022 3:35 PM MERCURY PURIFIER Associated Problem(s): Schizoaffective disorder, bipolar type (CMS/HCC) (HCC) (Deleted) Chronic, persistent, but functioning at baseline. Does not report any mood related symptoms or psychosis. Having some extrapyramidal side effects for which Cogentin has been prescribed. Continue current management. Continue to monitor. URY PURIFIER documented in this encounter Plan of Treatment Upcoming Encounters Date Type Department Care Team (Latest Contact Info) Description 07/13/2024 9:00 AM MERCURY PURIFIER Hospital Encounter [facility] GI Lab [address] [place] [address] Jaya Grier MD [address] [address] 07/13/2024 9:00 AM MERCURY PURIFIER - 07/13/2024 9:30 AM MERCURY PURIFIER Surgery [facility] Lab [address] [place] [address] Jaya Grier MD [address] [address] ESOPHAGOGASTRODUODENOSCOPY Scheduled Procedures Name Priority Associated Diagnoses Date/Ti az ESOPHAGOGASTRODUODENOSCOPY Anemia, unspecified type Gastritis without bleeding, unspecified chronicity, unspecified gastritis type 07/13/2024 9:00 AM MERCURY PURIFIER COLONOSCOPY Iron deficiency anemia due to chronic blood loss documented as of this encounter Visit Diagnoses Diagnosis Schizoaffective disorder, bipolar type (CMS/HCC) (HCC)- Primary Schizoaffective disorder, unspecified condition Anemia, unspecified type Gastritis without bleeding, unspecified chronicity, unspecified gastritis type documented in this encounter Care Teams Collections Curator Relationship Specialty Start Date End Date Cherelle Corcoran MD PCP - General Family Medicine 08/30/19 Mark Queen MD Consulting Physician Infectious Diseases 01/10/20 documented as of this encounter
--- OUTSIDE RECORDS SUMMARY | 2024-07-04 04:14 | XMS_ITS | Encounter Summary ---
Author Organization [facility] Address [address] [place] [address] Care Team Providers Care Wire Straightener Name Role Phone Cherelle Corcoran MD Primary Care Pro vider Mark Queen MD Unavailable [phone] Encounter Details Date Type Department Care Team (Late st Contact Info) Description 01/09/2022 Telephone [facility] Primary Care [address] [facility] [address] [place] [address] Cherelle Corcoran MD [facility] [address] [place] [address] Social History Tobacco Use Types [...] week 09/10/2021 How often do you attend [facility] or [facility] services? 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 * Telephone Encounter - Cherelle Corcoran MD - 01/09/2022 4:28 PM CDT Ok for verbal. 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 documented in this encounter Plan of Treatment Upcoming Encounters Date Type Department Care Team (Latest Contact Info) Description 07/13/2024 9:00 AM GENERAL ENGINEER Hospital Encounter [facility] GI Lab [address] [place] [address] Jaya Grier MD [address] [place] [address] 07/13/2024 9:00 AM GENERAL ENGINEER - 07/13/2024 9:30 AM GENERAL ENGINEER Surgery [facility] [address] [place] [address] Jaya Grier MD [address] [place] [address] ESOPHAGOGASTRODUODENOSCOPY Scheduled Procedures Name Priority Associated Diagnoses Date/Ti me ESOPHAGOGASTRODUODENOSCOPY Anemia, unspecified type Gastritis without bleeding, unspecified chronicity, unspecified gastritis type 07/13/2024 9:00 AM GENERAL ENGINEER COLONOSCOPY Iron deficiency anemia due to chronic blood loss documented as of this encounter Visit Diagnoses Not on filedocumented in this encounter Care Teams Wire Straightener Relationship Specialty Start Date End Date Cherelle Corcoran MD PCP - General Family Medicine 08/30/19 Mark Queen MD Consulting Physician Infectious Diseases 01/10/20 documented as of this encounter
--- OUTSIDE RECORDS SUMMARY | 2024-07-04 04:14 | XMS_ITS | Encounter Summary ---
Author Organization [facility] Home Care Servic es Address [address] [place] [address] Phone Care Team Providers Care Hot Box Operator Name Role Phone Cherelle Corcoran MD Primary Care Pro vider Mark Queen MD Unavailable [phone] Reason for Visit * Reason Comments Weakness - Generalized * Auth/Cert Specialty Diagnoses / Procedures Referred By Maryse t Referred To Contact Referral ID Status Reason Start Date Expiration Date Visits Re quested Visits Authorized [id number] 1 1 Encounter Details Date Type Department Care Team (Late st Contact Info) Description 01/10/2022 10:30 AM CDT Home Care Visit [facility] [address] [place] [address] Hanny Cruz, ANG PT HOME VISIT Social [...] you attend chur ch or taoism services? Never 09/10/2021 Do you belong to [...] on file Legal Sex Female 9:03 AM WORK FORCE ADVISOR Gender Identity Female 02/08/2020 6:39 PM CDT Sexual Orientation Not on file documented as of this encounter Last Filed Vital Signs Vital Sign Reading Time Taken Comments Blood Pressure 138/68 01/10/2022 10:55 AM CDT Pulse 78 01/10/2022 10:55 AM CDT Temperature 36.1 ??C (97 ??F) 01/10/2022 10:55 AM CDT Respiratory Rate 18 01/10/2022 10:55 AM CDT Oxygen Saturation 96% 01/10/2022 10:55 AM CDT Inhaled Oxygen Concentration - - Weight - - Height - - Body Mass Index - - documented in this encounter Miscellaneous Notes * Home Health Plan for Next Visit - Hanny Cruz PTA - 01/10/2022 10:25 AM CDT Reason for today's visit to progress with gait, balance activities and standing strengthening Discuss plan of care with pt Discharge planning when goals are met Plan for next visit to progress with gait, balance, strengthening pt at her other daughters home and she is in another room unable to speak with her pt instructed not to attempt gait activities unless using walker and assistance pt is agreeable with poc documented in this encounter Plan of Treatment Upcoming Encounters Date Type Department Care Team (Latest Contact Info) Description 07/13/2024 9:00 AM WORK FORCE ADVISOR Hospital Encounter [facility] [address] [place] [address] Jaya Grier MD [facility] [place] [address] 07/13/2024 9:00 AM WORK FORCE ADVISOR - 07/13/2024 9:30 AM WORK FORCE ADVISOR Surgery [facility] [address] [place] [address] Jaya Grier MD [address] [place] [address] ESOPHAGOGASTRODUODENOSCOPY Scheduled Procedures Name Priority Associated Diagnoses Date/Ti me ESOPHAGOGASTRODUODENOSCOPY Anemia, unspecified type Gastritis without bleeding, unspecified chronicity, unspecified gastritis type 07/13/2024 9:00 AM WORK FORCE ADVISOR COLONOSCOPY Iron deficiency anemia due to [...] home health visit Disciplines: SN, PT, OT, LADIES SUIT OPERATOR, HARNESS BUILDER, Skilled Disciplines Monitor patient's vital signs every [...] Mobility Disciplines: Physical Therapy Impaired functional mobility 12/31/2021 Active - 5 problem interventions scheduled/documen bruno [...] to scheduled/docume nted intervention 2 goal interventions scheduled/maryjo carr in this visit Goals Goal Associated Problem Outcome Goal Met? Visit Notes Patient receives care at the most appropriate care setting Description: Patient receives care at the most appropriate care setting. Homebound Status No Measure vital signs during every home health visit during episode of care Description: Home maintenance machine repairer to measure vital signs during every home [...] use of safety precautions Completed instructed to have supervision at all times with gait activities Instruct Fall Prevention Description: Instruct patient/caregiver in [...] pain has been reduced or controlled Completed pt takes acetaminophen for pain reports at times no pain Home Exercise Program (HEP) Description: Instruct patient/caregiver and perform HEP. Problem:PT Impaired Functional Mobility Completed while the pt was seated instructed on performing heel toe raises, hip abd/add, hip flexion with knee flexion, laqs holding 3 seconds, glut sets cues to complete correctly 10 reps of each pt does count with P.T so that able to breathe with exercises then while standing today instructed pt on hip flexion with knee flexion, hamstring curls and hip flexion with knee flexion x 10 reps of each pt will need further instruction in order to be able to do on her own Gait/Stair Training Description: Instruct patient/caregiver and perform gait/stair training. Problem:PT Impaired Functional Mobility Completed gait in the home for 100 ft over level surfaces with wheeled walker working on turning in each direction pt does have more difficulty and effort to turn to the right pt exhibits decreased hip flexion and knee flexion with gait and heel toe gait has tendency to shuffle feet min sob noted with gait Bed Mobility/Transfer Training Description: Instruct patient/caregiver and perform bed mobility/transfer training. Problem:PT Impaired Functional Mobility Completed sit to from stand from recliner depending on mod effort of ues Balance Training/Activities Description: Instruct patient/caregiver and perform balance training activities. Problem:PT Impaired Functional Mobility Completed instructed pt on standing static exercises and able to stand for 1 minute with arms down to side does lean forward however no ue assist pts feet were shoulder width apart reports pain 5/10 in back with standing then working on staggered stance each leg for 20 seconds leans forward cues to improve but difficult for pt to correct gait balance with wheeled walker 4-/5 Therapeutic Exercise Description: Perform therapeutic exercise, progressing as tolerated. Problem:PT Impaired Functional Mobility Completed see HEP comments Skilled assessment wound Description: Full wound assessment including measurement weekly. Wound assessment each visit Problem:Wound Care Goal:Progression towards healing Scheduled Perform dressing change Description: Perform dressing change: Site #5 left heel , Skilled Nurse, Caregiver or Patient to leave open to air and float heels. Problem:Wound Care Goal:Progression towards healing Scheduled Instruct Hand Washing Description: Instruct patient/caregiver on hand wash technique Problem:Wound Risk of Infection Goal:Knowledgeable of infection Scheduled Instruct on the signs and symptoms of infection Description: Assess wound with each visit for s/sx of infection Problem:Wound Risk of Infection Goal:Knowledgeable of infection Scheduled documented in this encounter Care Teams Hot Box Operator Relationship Specialty Start Date End Date Cherelle Corcoran MD PCP - General Family Medicine 08/30/19 Mark Queen MD Consulting Physician Infectious Diseases 01/10/20 documented as of this encounter
--- OUTSIDE RECORDS SUMMARY | 2024-07-04 04:14 | XMS_ITS | Encounter Summary ---
Author Organization [facility] Home Care Servic es Address [address] [place] [address] Phone Care Team Providers Care Anesthesiology Physician Assistant Name Role Phone Cherelle Corcoran MD Primary Care Pro vider Mark Queen MD Unavailable [phone] Reason for Visit * Reason Comments Weakness - Generalized * Auth/Cert Specialty Diagnoses / Procedures Referred By Maryse t Referred To Contact Referral ID Status Reason Start Date Expiration Date Visits Re quested Visits Authorized [id number] 1 1 Encounter Details Date Type Department Care Team (Late st Contact Info) Description 01/03/2022 11:30 AM CDT Home Care Visit [facility] [address] [place] [address] Hanny Cruz, ANG PT HOME VISIT Social [...] you attend chur ch or methodist services? 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 Gender Identity Female 02/08/2020 6:39 PM CDT Sexual Orientation Not on file documented as of this encounter Last Filed Vital Signs Vital Sign Reading Time Taken Comments Blood Pressure 122/64 01/03/2022 12:08 PM CDT Pulse 75 01/03/2022 12:08 PM CDT Temperature 35.9 ??C (96.6 ??F) 01/03/2022 12:08 PM C DT Respiratory Rate 18 01/03/2022 12:08 PM CDT Oxygen Saturation 98% 01/03/2022 12:08 PM CDT Inhaled Oxygen Concentration - - Weight - - Height - - Body Mass Index - - documented in this encounter Miscellaneous Notes * Home Health Visit Narrative - Hanny Cruz PTA - 01/03/2022 12:16 PM CDT pt reports that she is slightly stronger with gait and transfers however not back yet to her PLOF pt denies any falls pt lives with her daughter who assists her as needed plan to work with pt on in and out of the home next visit to progress with gait and balance activities pt and daughter are agreeable with poc documented in this encounter Plan of Treatment Upcoming Encounters Date Type Department Care Team (Latest Contact Info) Description 07/13/2024 9:00 AM [employer] COMPANY FLATBED DRIVER Hospital Encounter [facility] GI Lab [address] [place] [address] Jaya Grier MD [address] [place] [address] 07/13/2024 9:00 AM [employer] COMPANY FLATBED DRIVER - 07/13/2024 9:30 AM [employer] FLATBED DRIVER Surgery [facility] [address] [place] [address] Jaya Grier MD [address] [place] [address] ESOPHAGOGASTRODUODENOSCOPY Scheduled Procedures Name Priority Associated Diagnoses Date/Ti me ESOPHAGOGASTRODUODENOSCOPY Anemia, unspecified type Gastritis without bleeding, unspecified chronicity, unspecified gastritis type 07/13/2024 9:00 AM [employer] COMPANY FLATBED DRIVER COLONOSCOPY Iron deficiency anemia due to [...] home health visit Disciplines: SN, PT, OT, BUSINESS COMPUTERS TEACHER, TECHNICAL CABLE JOINTER, Skilled Disciplines Monitor patient's vital signs every [...] visit during episode of care Description: Home email administrator to measure vital signs during every home [...] pt instructed to use the wheeled walker vs the cane and to have assistance at all times Instruct on the prevention of deep vein thrombosis Description: Instruct patient/caregiver on signs and symptoms, preventative measures related to DVT, and provide ongoing home support based on patient needs Problem:DVT Prevention and Management Goal:Demonstrate knowledge of anticoagulant therapy Scheduled Instruct on pain management techniques Description: Instruct in pharmacologic and nonpharmacologic pain management techniques. Problem:Pain Goal:Report that pain has been reduced or controlled Completed pts daughter does give pain meds as needed Home Exercise Program (HEP) Description: Instruct patient/caregiver and perform HEP. Problem:PT Impaired Functional Mobility Completed while the pt is supine instructed on exercises including 10 reps each of anklepumping, quad sets, heelslides, hip abd/add with cues to engage quad before completing, glut squeezes and saqs holding 3 seconds of each pt does need cues to complete correctly has written hep to follow and instructed to perform 2 times a day Gait/Stair Training Description: Instruct patient/caregiver and perform gait/stair training. Problem:PT Impaired Functional Mobility Completed gait in the home over level surfaces for 30 ft x 2 using wheeled walker pt exhibits flexion at hips and knees decreased stridelength and stepheight gait is slow some mild sob noted with gait pt declines pain Bed Mobility/Transfer Training Description: Instruct patient/caregiver and perform bed mobility/transfer training. Problem:PT Impaired Functional Mobility Completed supine to from sit with cues to sit on bed and then lift legs as laying however pt does crawl into bed and is safety risk as she could slide off will work more with pt to become comfortable working on in and out of bed safely min asst with supine to sit to assist trunk up sit to from stand depends on ues to push herself up Balance Training/Activities Description: Instruct patient/caregiver and perform balance training activities. Problem:PT Impaired Functional Mobility Completed standing balance static stance with arms down to side for 1 minute with constant cues to improve posture pt has tendency to flex forward at hips staggered stance each leg 30 seconds and pt again flexes forward at hips gait balance with wheeled walker 4-/5 Therapeutic Exercise Description: Perform therapeutic exercise, progressing as tolerated. Problem:PT Impaired Functional Mobility Completed see hep comments documented in this encounter Care Teams Anesthesiology Physician Assistant Relationship Specialty Start Date End Date Cherelle Corcoran MD PCP - General Family Medicine 08/30/19 Mark Queen MD Consulting Physician Infectious Diseases 01/10/20 documented as of this encounter
--- OUTSIDE RECORDS SUMMARY | 2024-07-04 04:14 | XMS_ITS | Encounter Summary ---
Author Organization [facility] Home Care Servic es Address [address] [place] [address] Phone Care Team Providers Care Patient Representative Name Role Phone Cherelle Corcoran MD Primary Care Pro vider Mark Queen MD Unavailable [phone] Reason for Visit * Auth/Cert Specialty Diagnoses / Procedures Referred By Maryse t Referred To Contact Referral ID Status Reason Start Date Expiration Date Visits Re quested Visits Authorized [id number] 1 1 Encounter Details Date Type Department Care Team (Late st Contact Info) Description 01/09/2022 8:30 AM CDT Home Care Visit [facility] [address] [address] [address] [place] [address] Diann Hernandez OT OT HOME VISIT Social [...] on file Legal Sex Female 9:03 AM 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 ON CALL Gender Identity Female 02/08/2020 6:39 PM CDT Sexual Orientation Not on file documented as of this encounter Last Filed Vital Signs Vital Sign Reading Time Taken Comments Blood Pressure 128/64 01/09/2022 8:46 AM CDT Pulse 73 01/09/2022 8:46 AM CDT Temperature 36.3 ??C (97.3 ??F) 01/09/2022 8:46 AM CD T Respiratory Rate 18 01/09/2022 8:46 AM CDT Oxygen Saturation 97% 01/09/2022 8:46 AM CDT Inhaled Oxygen Concentration - - Weight - - Height - - Body Mass Index - - documented in this encounter Miscellaneous Notes * Home Health Plan for Next Visit - Diann Hernandez OT - 01/09/2022 8:33 AM CDT Reason for today's visit HEP review, FWW safety, pressure relief education for heel and buttocks. Discuss plan of care with patient. Discharge planning when goals are met. Plan for next visit: HEP with yellow theraband, functional transfers, home safety, functional endurance. documented in this encounter Plan of Treatment Upcoming Encounters Date Type Department Care Team (Latest Contact Info) Description 07/13/2024 9:00 AM BANQUET SERVER ON CALL Hospital Encounter [facility] GI Lab [address] [place] [address] Jaya Grier MD [facility] [place] [address] 07/13/2024 9:00 AM BANQUET SERVER ON CALL - 07/13/2024 9:30 AM BANQUET SERVER ON CALL Surgery [facility] GI Lab [address] [place] [address] Jaya Grier MD [address] [place] [address] ESOPHAGOGASTRODUODENOSCOPY Scheduled Procedures Name Priority Associated Diagnoses Date/Ti me ESOPHAGOGASTRODUODENOSCOPY Anemia, unspecified type Gastritis without bleeding, unspecified chronicity, unspecified gastritis type 07/13/2024 9:00 AM BANQUET SERVER ON CALL COLONOSCOPY Iron deficiency anemia due to chronic [...] home health visit Disciplines: SN, PT, OT, COOK COLD MEAT, COMMERCIAL GLAZIER, Skilled Disciplines Monitor patient's vital signs every [...] visit during episode of care Description: Home pattern designer to measure vital signs during every home [...] Wound Care No Progression towards healing Description: Wound show [...] and 1 person to safely leave the home. Monitor Vital Signs Description: Monitor blood pressure, pulse, oxygen saturation, respirations Problem:Monitor patient's vital signs every home health visit Goal:Measure vital signs during every home health visit during episode of care Completed Instruct Fall Prevention Description: Instruct patient/caregiver in methods to prevent falls Problem:Safety concerns Goal:Demonstrate use of safety precautions Completed Pt educated on using FWW at all times within home to decrease risk for falls as pt opened front door without FWW at her side. Assess safety Description: Assess patient safety Problem:Safety concerns Goal:Demonstrate use of safety precautions Completed Pt's vitals within functional limits after two loops of walking to front door with walker and back to living room chair. Pt educated on using walker to get to front door vs. rushing to open front door for family/HH staff and risk having an accident. Pt verbalized understanding. Instruct on the prevention of deep vein thrombosis Description: Instruct patient/caregiver on signs and symptoms, preventative measures related to DVT, and provide ongoing home support based on patient needs Problem:DVT Prevention and Management Goal:Demonstrate knowledge of anticoagulant therapy Completed OT educated pt on s/s of DVT and pt verbalized understanding Instruct on pain management techniques Description: Instruct in pharmacologic and nonpharmacologic pain management techniques. Problem:Pain Goal:Report that pain has been reduced or controlled Completed Pt with no reports of pain during session. Pressure Relief Description: Instruct patient/caregiver and perform pressure relief techniques Problem:OT Positioning/Pressure Relief Completed OT educated pt on leaving L heel out of shoe to reduce pressure on sore spot. Pt verbalized understanding. Pt slept with L foot propped up on pillow so that her heel was floating in the air. OT educated that pt may need two pillows stacked on top of each other to reduce chances of heel pressure on mattress. Home Exercise Program (HEP) Description: Instruct patient/caregiver in HEP completion. Problem:OT Activity Tolerance/Energy Conservation Completed Pt did not have green theraband or HEP instructions available this date. OT to provide supervisor customer services theraband in next session for more appropriate just right challenge for UB strengthening. Pt also instructed as part of HEP to walk around living room with FWW to relieve pressure from bottom and to elevate feet in recliner chair. Transfer Training Description: Instruct patient/caregiver and perform transfer training. Problem:OT Impaired ADLs Completed Pt cued to reach back for arm rests when sitting down in chair. Pt left both hands on handles of FWW. Pt demo'd better technique after OT demonstration and cueing. Skilled assessment wound Description: Full wound assessment including measurement weekly. Wound assessment each visit Problem:Wound Care Goal:Progression towards healing Scheduled Perform dressing change Description: Perform dressing change: Site#3 left heel , Skilled Nurse, Caregiver and Patient to leave open to air and [...] Scheduled documented in this encounter Care Teams Patient Representative Relationship Specialty Start Date End Date Cherelle Corcoran MD PCP - General Family Medicine 08/30/19 Mark Queen MD Consulting Physician Infectious Diseases 01/10/20 documented as of this encounter
--- OUTSIDE RECORDS SUMMARY | 2024-07-04 04:14 | XMS_ITS | Encounter Summary ---
Author Organization [facility] Home Care Servic es Address [address] [place] [address] Phone Care Team Providers Care Elementary Science Teacher Name Role Phone Cherelle Corcoran MD Primary Care Pro vider Mark Queen MD Unavailable [phone] Reason for Visit * Auth/Cert Specialty Diagnoses / Procedures Referred By Maryse t Referred To Contact Referral ID Status Reason Start Date Expiration Date Visits Re quested Visits Authorized [id number] 1 1 Encounter Details Date Type Department Care Team (Latest Contact Info) Description 01/22/2022 10:00 AM CDT Home Care Visit [facility] Home Health [address] [address] [address] [place] [address] Diann Hernandez OT OT DISCIPLINE DISCHARGE Social History Tobacco Use Types [...] any clubs o r organizations such as sikh groups, unions, fraternal or athletic groups, or [...] on file Legal Sex Female 9:03 AM REGIONAL ENVIRONMENTAL MANAGER Gender Identity Female 02/08/2020 6:39 PM CDT Sexual Orientation Not on file documented as of this encounter Last Filed Vital Signs Vital Sign Reading Time Taken Comments Blood Pressure 148/66 01/22/2022 10:16 AM CDT Pulse 77 01/22/2022 10:16 AM CDT Temperature 36.7 ??C (98.1 ??F) 01/22/2022 10:16 AM C DT Respiratory Rate 18 01/22/2022 10:16 AM CDT Oxygen Saturation 97% 01/22/2022 10:16 AM CDT Inhaled Oxygen Concentration - - Weight - - Height - - Body Mass Index - - documented in this encounter Miscellaneous Notes * Home Health Plan for Next Visit - Diann Hernandez OT - 01/22/2022 10:08 AM CDT Reason for today's visit: discharge visit. Discuss plan of care with patient. Discharge planning: today, pt has met OT related goals. OT was hoping to fully address shower transfer however pt's family has not gotten the chance to obtain DME yet. OT re-educated pt's daughter onimportance and benefits of shower chair for bathing routine, to increase safety and decrease risk for falls. Pt's daughter verbalized understanding. Plan for next visit: N/A, today is discharge. Pt was appropriate for discharge at this time as pt met OT related goals and both pt and family members are happy with her progress. documented in this encounter Plan of Treatment Upcoming Encounters Date Type Department Care Team (Latest Contact Info) Description 07/13/2024 9:00 AM REGIONAL ENVIRONMENTAL MANAGER Hospital Encounter [facility] [address] [place] [address] Jaya Grier MD [address] [address] 07/13/2024 9:00 AM REGIONAL ENVIRONMENTAL MANAGER - 07/13/2024 9:30 AM REGIONAL ENVIRONMENTAL MANAGER Surgery [facility] [address] [place] [address] Jaya Grier MD [address] [facility] [address] [address] ESOPHAGOGASTRODUODENOSCOPY Scheduled Procedures Name Priority Associated Diagnoses Date/Ti me ESOPHAGOGASTRODUODENOSCOPY Anemia, unspecified type Gastritis without bleeding, unspecified chronicity, unspecified gastritis type 07/13/2024 9:00 AM REGIONAL ENVIRONMENTAL MANAGER COLONOSCOPY Iron deficiency anemia due to chronic blood loss documented as of this encounter Visit Diagnoses Not on filedocumented in this encounter Home Health Visit - Care Plan Visit Details Visit Type -OT Discipline Nallely chakraborty Discipline -Occupational Therapy Problems Problem Description Start Date Status Goals Interventions Homebound Status Disciplines: Skilled Disciplines Patient's homebound status 12/25/2021 Active 1 goal linked to scheduled/docume nted intervention 1 goal intervention scheduled/docume nted in this visit Monitor patient's vital signs every home health visit Disciplines: SN, PT, OT, MECHANICAL ENERGY ENGINEER, FACULTY INSTRUCTOR, Skilled Disciplines Monitor patient's vital signs every home health visit. 12/25/2021 Active 1 goal linked to scheduled/docume nted intervention 1 goal intervention scheduled/docume nted in this visit Safety concerns Disciplines: Skilled Disciplines Alteration in safety 12/25/2021 Active 1 goal linked to scheduled/docume nted intervention 2 goal interventions scheduled/docume nted in this visit DVT Prevention and Management Disciplines: Skilled Disciplines Management of anticoagulation therapy 12/25/2021 Active 1 goal linked to scheduled/docume nted intervention 1 goal intervention scheduled/docume nted in this visit Pain Disciplines: Core Disciplines Alteration in comfort 12/25/2021 Active 1 goal linked to scheduled/docume nted intervention 1 goal intervention scheduled/docume nted in this visit OT Positioning/Pre ssure Relief Disciplines: Occupational Therapy Positioning/seating /pressure relief needed due to previous pressure injuries on buttocks and L heel. 01/02/2022 Resolved on 01/22/2022 1 goal linked to scheduled/docume nted intervention 1 problem intervention scheduled/docume nted in this visit OT Activity Tolerance/Energ y Conservation Disciplines: Occupational Therapy Impaired activity tolerance for functional activity 01/02/2022 Resolved on 01/22/2022 1 goal linked to scheduled/docume nted intervention 2 problem interventions scheduled/docume nted in this visit OT Impaired ADLs Disciplines: Occupational Therapy Impaired independence in self-care, ADLs. 01/02/2022 Resolved on 01/22/2022 1 goal linked to scheduled/docume nted intervention 2 problem interventions scheduled/docume nted in this visit Wound Care Disciplines: Core Disciplines Wound care needed 01/09/2022 Active 1 goal linked to scheduled/docume nted intervention 1 goal intervention scheduled/docume nted in this visit Wound Care Disciplines: Core Disciplines #5 Wound care needed 01/09/2022 Active 1 goal linked to scheduled/docume nted intervention 1 goal intervention scheduled/docume nted in this visit Wound Risk of Infection Disciplines: Core Disciplines Risk of infections related to wounds 01/09/2022 Active 1 goal linked to scheduled/docume nted intervention 2 goal interventions scheduled/docume nted in this visit Goals Goal Associated Problem Outcome Goal Met? Visit Notes Patient receives care at the most appropriate care setting Description: Patient receives care at the most appropriate care setting. Homebound Status No Measure vital signs during every home health visit during episode of care Description: Home vice president of consulting services to measure vital signs during every home [...] of pain and symptom control. Pain No Improved knowledge/performance with pressure relief Description: Patient/caregiver to verbalize understanding and perform pressure relieving techniques to relief pressure from buttocks and heels by week 3. OT Positioning/Pressure Relief Adequate for Discharge No Improvement in activity tolerance Description: Patient will verbalize and/or demonstrate 5 energy conservation strategies to assist with ADL routines by week 3. OT Activity Tolerance/Energy Conservation Adequate for Discharge No Improvement in ADL performance Description: Patient will complete bathing tasks with AE/DME as needed with setup assist by week 3. OT Impaired ADLs Adequate for Discharge No Progression towards healing Description: Wound show [...] Goal:Demonstrate use of safety precautions Completed Pt aware of falls risks in home and wears shoes to protect feet. Pt verbalized slow position changes if feeling dizzy upon standing and would benefit from sitting back down in chair if that situation occurs. Assess safety Description: Assess patient safety Problem:Safety concerns Goal:Demonstrate use of safety precautions Completed OT encouraged pt to keep using FWW in home to decrease fall risk. Pt met OT at front door with FWW in hand with good technique. Instruct on the prevention of deep vein thrombosis Description: Instruct patient/caregiver on signs and symptoms, preventative measures related to DVT, and provide ongoing home support based on patient needs Problem:DVT Prevention and Management Goal:Demonstrate knowledge of anticoagulant therapy Completed Pt educated on s/s of DVTs and verbalized understanding. Instruct on pain management techniques Description: Instruct in pharmacologic and nonpharmacologic pain management techniques. Problem:Pain Goal:Report that pain has been reduced or controlled Completed Pt typically uses tylenol for pain management. Pressure Relief Description: Instruct patient/caregiver and perform pressure relief techniques Problem:OT Positioning/Pressure Relief Completed OT re-educated pt on elevating heels off of floor while relaxing in recliner chair by using leg rest where heels hang off end of it and using pillow while supine in bed to allow heel to float while sleeping. During bed transfer, OT demo'd placing pillow underneath pt's L calf in order to float L heel off of mattress. Pt reported comfort with pillow and pt verbalized understanding. Home Exercise Program (HEP) Description: Instruct patient/caregiver in HEP completion. Problem:OT Activity Tolerance/Energy Conservation Completed Pt's stated she felt very confident with UB exercises and reported no questions for UB HEP. Energy Conservation Education Description: Instruct patient/caregiver in techniques for improved activity tolerance Problem:OT Activity Tolerance/Energy Conservation Completed Pt re-educated on energy conservation strategies to decrease fatigue during the day, use of deep breathing strategies, pacing of schedule during the week and awareness of bodily limits. Pt verbalized agreement. Transfer Training Description: Instruct patient/caregiver and perform transfer training. Problem:OT Impaired ADLs Completed Pt re-educated on hand placement on arm rests of chair when sitting in recliner chair and on side of bed when sitting down. Pt did not demo correct technique upon sitting down in recliner during beginning of visit. Pt completed toilet, bed and recliner transfers with cueing again to reach for arm rests when sitting in recliner chair. Adaptive Equipment/DME Education Description: Recommend and assist with obtaining assistive devices/DME. Problem:OT Impaired ADLs Completed Pt re-educated on obtaining shower chair for safety during bathing routine and placement of tennis balls on back of FWW legs to decrease effort required to push FWW around home. Pt verbalized agreement. Skilled assessment wound Description: Full wound assessment [...] Completed documented in this encounter Care Teams Elementary Science Teacher Relationship Specialty Start Date End Date Cherelle Corcoran MD PCP - General Family Medicine 08/30/19 Mark Queen MD Consulting Physician Infectious Diseases 01/10/20 documented as of this encounter
--- OUTSIDE RECORDS SUMMARY | 2024-07-04 04:14 | XMS_ITS | Encounter Summary ---
Author Organization [facility] Address [address] [place] [address] Care Team Providers Care Enterostomal Therapy Nurse Name Role Phone Cherelle Corcoran MD Primary Care Pro vider Mark Queen MD Unavailable [phone] Encounter Details Date Type Department Care Team (Late st Contact Info) Description 04/02/2022 Telephone [facility] Nephrology [address] [facility] [address] [place] [address] Markie Ryan MD [address] [facility] [address] [place] [address] Social History Tobacco Use Types [...] week 09/10/2021 How often do you attend [facility] or pentecostalism services? Never 09/10/2021 Do you [...] on file Legal Sex Female 9:03 AM BENCH MECHANIC Gender Identity Female 02/08/2020 6:39 PM CDT Sexual Orientation Not on file documented as of this encounter Miscellaneous Notes * Telephone Encounter - Yessy Christianson MA - 04/02/2022 9:16 AM CDT Patients daughter contacted and informed of patients lab results. Advised to have her repeat labs in 2 months. Lab orders entered for [facility]. Voiced no concerns. * Telephone Encounter - Yessy Christianson MA - 04/02/2022 9:13 AM CDT ----- Message from Markie Ryan MD sent at 04/01/2022 5:18 PM CDT ----- Labs reviewed, serum creatinine stable. Iron stores are adequate with mild anemia. Would repeat a BMP, iron panel and CBC in 2-3 months please documented in this encounter Plan of Treatment Upcoming Encounters Date Type Department Care Team (Latest Contact Info) Description 07/13/2024 9:00 AM BENCH MECHANIC Hospital Encounter [facility] [address] [place] [address] Jaya Grier MD [facility] [address] [place] [address] 07/13/2024 9:00 AM BENCH MECHANIC - 07/13/2024 9:30 AM BENCH MECHANIC Surgery [facility] [address] [place] [address] Jaya Grier MD [address] [facility] [address] [place] [address] ESOPHAGOGASTRODUODENOSCOPY Scheduled Procedures Name Priority Associated Diagnoses Date/Ti me ESOPHAGOGASTRODUODENOSCOPY Anemia, unspecified type Gastritis without bleeding, unspecified chronicity, unspecified gastritis type 07/13/2024 9:00 AM BENCH MECHANIC COLONOSCOPY Iron deficiency anemia due to chronic blood loss documented as of this encounter Visit Diagnoses Diagnosis Stage 3b chronic kidney disease (HCC)- Primary Diabetic nephropathy (CMS/HCC) (HCC) Type II or unspecified type diabetes mellitus with renal manifestations, not stated as uncontrolled Benign hypertensive kidney disease with chronic kidney disease stage I through stage IV, or unspecified(403.10) Benign hypertensive kidney disease with chronic kidney disease stage I through stage IV, or unspecified Anemia in stage 3b chronic kidney disease (HCC) Anemia, unspecified type Gastritis without bleeding, unspecified chronicity, unspecified gastritis type documented in this encounter Care Teams Enterostomal Therapy Nurse Relationship Specialty Start Date End Date Cherelle Corcoran MD PCP - General Family Medicine 08/30/19 Mark Queen MD Consulting Physician Infectious Diseases 01/10/20 documented as of this encounter
--- OUTSIDE RECORDS SUMMARY | 2024-07-04 04:14 | XMS_ITS | Encounter Summary ---
Author Organization [facility] Home Care Servic es Address [address] [place] [address] Phone Care Team Providers Care Soldering Machine Operator Helper Name Role Phone Cherelle Corcoran MD Primary Care Pro vider Mark Queen MD Unavailable [phone] Reason for Visit * Auth/Cert Specialty Diagnoses / Procedures Referred By Maryse lama Referred To Contact Referral ID Status Reason Start Date Expiration Date Visits Re quested Visits Authorized [id number] 1 1 Encounter Details Date Type Department Care Team (Late st Contact Info) Description 01/07/2022 Home Care Visit [facility] Home Health - [address] [address] [address] [place] [address] Jamila Cabrera, RN TELEPHONE ENCOUNTER Social History Tobacco Use [...] you attend chur ch or restorationism services? Never 09/10/2021 Do you belong to [...] on file Legal Sex Female 9:03 AM DRIVER MEDIC Gender Identity Female 02/08/2020 6:39 PM CDT Sexual Orientation Not on file documented as of this encounter Plan of Treatment Upcoming Encounters Date Type Department Care Team (Latest Contact Info) Description 07/13/2024 9:00 AM DRIVER MEDIC Hospital Encounter [facility] [address] [place] [address] Jaya Grier MD [facility] [facility] [address] [place] [address] 07/13/2024 9:00 AM DRIVER MEDIC - 07/13/2024 9:30 AM DRIVER MEDIC Surgery [facility] [address] [place] [address] Jaya Grier MD [facility] [facility] [address] [place] [address] ESOPHAGOGASTRODUODENOSCOPY Scheduled Procedures Name Priority Associated Diagnoses Date/Ti me ESOPHAGOGASTRODUODENOSCOPY Anemia, unspecified type Gastritis without bleeding, unspecified chronicity, unspecified gastritis type 07/13/2024 9:00 AM DRIVER MEDIC COLONOSCOPY Iron deficiency anemia due to chronic blood loss documented as of this encounter Visit Diagnoses Not on filedocumented in this encounter Care Teams Soldering Machine Operator Helper Relationship Specialty Start Date End Date Cherelle Corcoran MD PCP - General Family Medicine 08/30/19 Mark Queen MD Consulting Physician Infectious Diseases 01/10/20 documented as of this encounter
--- OUTSIDE RECORDS SUMMARY | 2024-07-04 04:14 | XMS_ITS | Encounter Summary ---
Author Organization [facility] Address [address] [facility] [address] [place] [address] Care Team Providers Care Shear Operator Name Role Phone Cherelle Corcoran MD Primary Care Pro vider Mark Queen MD Unavailable [phone] Reason for Visit * Reason Onset Date Comments Medication Request 04/11/2022 Encounter Details Date Type Department Care Team ([facility] st Contact Info) Description 04/11/[address] [facility] Primary Care [address] [facility] [address] [place] [address] Cherelle Corcoran MD [facility] [address] [place] [address] Medication Request Social History Tobacco [...] attend chur ch or jehovah's witness services? Never 09/10/2021 Do you belong to [...] on file Legal Sex Female 9:03 AM MEDICATION TECH Gender Identity Female 02/08/2020 6:39 PM CDT Sexual Orientation Not on file documented as of this encounter Miscellaneous Notes * Telephone Encounter - Sandy Mota MA - 04/11/2022 2:24 PM CDT There is no new medication that was discussed/prescribed. I advised daughter to just have her continue taking her regular medications per RENA note. I also advised her that I have to wait to hear backfrom Dr. Corcoran in regards to the Home Health physical therapy. No further questions at this time. * Telephone Encounter - Mikayla Langley - 04/11/2022 2:12 PM CDT Call Back Caller???s Concern: Patient daughter is calling back stating she thought her mother was supposed chris on new medication after talking to Dr. Corcoran as last visit. Patient daughter states she is unaware of the name of the new medication they talked about. Please advise. Caller???s Call back #: [phone] Does message need to be routed? Yes-Action Needed * Telephone Encounter - Sandy Mota MA - 04/11/2022 2:08 PM CDT Lmov for pt daughter to return call. Unsure of what new medication she is referring to and what it is for? Please clarify * Telephone Encounter - Brook Sinclair - 04/11/2022 8:41 AM CDT Medication Question/Clarification Medication Name(s): Unknown What is the question or clarification needed? Patient's daughter thought patient was to start on a new medication after being seen in office on 04/01/22 and states there is not a new medication at pharmacy. New prescription? If needed, Pharmacy(s) medication(s) should be sent to: [facility] in chart Caller???s Callback #: [phone] Additional Comments: None Does message need to be routed? Yes-Action Needed documented in this encounter Plan of Treatment Upcoming Encounters Date Type Department Care Team (Latest Contact Info) Description 07/13/2024 9:00 AM MEDICATION TECH Hospital Encounter [facility] [address] [place] [address] Jaya Grier MD [address] [place] [address] [address] [place] [address] 07/13/2024 9:00 AM MEDICATION TECH - 07/13/2024 9:30 AM MEDICATION TECH Surgery [facility] [address] [place] [address] Jaya Grier MD [address] [place] [address] [address] [place] [address] ESOPHAGOGASTRODUODENOSCOPY Scheduled Procedures Name Priority Associated Diagnoses Date/Ti me ESOPHAGOGASTRODUODENOSCOPY Anemia, unspecified type Gastritis without bleeding, unspecified chronicity, unspecified gastritis type 07/13/2024 9:00 AM MEDICATION TECH COLONOSCOPY Iron deficiency anemia due to chronic blood loss documented as of this encounter Visit Diagnoses Not on filedocumented in this encounter Care Teams Shear Operator Relationship Specialty Start Date End Date Cherelle Corcoran MD PCP - General Family Medicine 08/30/19 Mark Queen MD Consulting Physician Infectious Diseases 01/10/20 documented as of this encounter
--- OUTSIDE RECORDS SUMMARY | 2024-07-04 04:14 | XMS_ITS | Encounter Summary ---
Author Organization [facility] Address [address] [place] [address] Care Team Providers Care Lens Generator Name Role Phone Cherelle Corcoran MD Primary Care Pro vider Mark Queen MD Unavailable [phone] Reason for Visit * Reason Onset Date Comments Medical Question/Miscellaneous 04/15/2022 Encounter Details Date Type Department Care Team ([facility] Contact Info) Description 04/15/2022 Telephone [facility] Primary Care [facility] [address] [place] [address] Cherelle Corcoran MD [address] [place] [address] [address] [place] [address] Medical Question/Miscellaneous Social History Tobacco [...] on file Legal Sex Female 9:03 AM CYTOTECHNOLOGIST SUPERVISOR Gender Identity Female 02/08/2020 6:39 PM CDT Sexual Orientation Not on file documented as of this encounter Miscellaneous Notes * Telephone Encounter - Morenita Mathur - 04/15/2022 4:25 PM CDT Medical Question/Miscellaneous Caller???s Concern: Patients daughter called to confirm appointment for 04/16/22 was canceled I relayed to her it was canceled. No further assistance needed. Caller???s Call back #: [phone] Does message need to be routed?No documented in this encounter Plan of Treatment Upcoming Encounters Date Type Department Care Team (Latest Contact Info) Description 07/13/2024 9:00 AM CYTOTECHNOLOGIST SUPERVISOR Hospital Encounter [facility] [address] [place] [address] Jaya Grier MD [address] [place] [address] [address] [place] [address] 07/13/2024 9:00 AM CYTOTECHNOLOGIST SUPERVISOR - 07/13/2024 9:30 AM CYTOTECHNOLOGIST SUPERVISOR Surgery [facility] [address] [place] [address] Jaya Grier MD [facility] [address] [place] [address] ESOPHAGOGASTRODUODENOSCOPY Scheduled Procedures Name Priority Associated Diagnoses Date/Ti de ESOPHAGOGASTRODUODENOSCOPY Anemia, unspecified type Gastritis without bleeding, unspecified chronicity, unspecified gastritis type 07/13/2024 9:00 AM CYTOTECHNOLOGIST SUPERVISOR COLONOSCOPY Iron deficiency anemia due to chronic blood loss documented as of this encounter Visit Diagnoses Not on filedocumented in this encounter Additional Health Concerns Infection Onset Date Last Indicated Resolved Time COVID: Suspected 05/08/2022 05/08/2022 05/08/2022 4:26 PM CYTOTECHNOLOGIST SUPERVISOR documented as of this encounter Care Teams Lens Generator Relationship Specialty Start Date End Date Cherelle Corcoran MD PCP - General Family Medicine 08/30/19 Mark Queen MD Consulting Physician Infectious Diseases 01/10/20 documented as of this encounter
--- OUTSIDE RECORDS SUMMARY | 2024-07-04 04:14 | XMS_ITS | Encounter Summary ---
Author Organization [facility] Address [address] [place] [address] Phone Care Team Providers Care Mortar Mixer Name Role Phone Cherelle Corcoran MD Primary Care Pro vider Mark Queen MD Unavailable [phone] Encounter Details Date Type Department Care Team (Late st Contact Info) Description 01/02/2022 Telephone [facility] Endocrinology Metabolism and Lipid [address] [facility] 5th [place] [address] [place] [address] Yoly Herrera RN Social History [...] How often do you attend chur or sikh services? 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 Gender Identity Female 02/08/2020 6:39 PM CDT Sexual Orientation Not on file documented as of this encounter Miscellaneous Notes * Telephone Encounter - Yoyl Herrera RN - 01/02/2022 1:35 PM CDT I received a call from home health nurse that the patient has elevated glucose levels She saw the public health educator and had a Madhav placed and her family was given instructions on uploading the reader I called and spoke with the daughter Areli and told her it is more than just connecting the reader to the computer, and that she will need a [employer] account and we will need to share her readings I gave her my number to call when upload completed, in the interim, the home health nurse has a lotof readings she will try to send in EPIC Cosigned by Anant Kauffman MD at 01/02/2022 3:26 PM CDT documented in this encounter Plan of Treatment Upcoming Encounters Date Type Department Care Team (Latest Contact Info) Description 07/13/2024 9:00 AM ELECTRONICS REPAIR TECHNICIAN Hospital Encounter [facility] GI Lab [address] [place] [address] Jaya Grier MD [address] [facility] [address] [place] [address] 07/13/2024 9:00 AM ELECTRONICS REPAIR TECHNICIAN - 07/13/2024 9:30 AM ELECTRONICS REPAIR TECHNICIAN Surgery [facility] GI Lab [address] [place] [address] Jaya Grier MD [address] [facility] [address] [place] [address] ESOPHAGOGASTRODUODENOSCOPY Scheduled Procedures Name Priority Associated Diagnoses Date/Ti nd ESOPHAGOGASTRODUODENOSCOPY Anemia, unspecified type Gastritis without bleeding, unspecified chronicity, unspecified gastritis type 07/13/2024 9:00 AM ELECTRONICS REPAIR TECHNICIAN COLONOSCOPY Iron deficiency anemia due to chronic blood loss documented as of this encounter Visit Diagnoses Not on filedocumented in this encounter Care Teams Mortar Mixer Relationship Specialty Start Date End Date Cherelle Corcoran MD PCP - General Family Medicine 08/30/19 Mark Queen MD Consulting Physician Infectious Diseases 01/10/20 documented as of this encounter
--- OUTSIDE RECORDS SUMMARY | 2024-07-04 04:14 | XMS_ITS | Encounter Summary ---
Author Organization [facility] Address [address] [place] [address] Phone Care Team Providers Care Dietary Aid Name Role Phone Cherelle Corcoran MD Primary Care Pro vider Mark Queen MD Unavailable [phone] Reason for Visit * Auth/Cert Specialty Diagnoses / Procedures Referred By Maryse t Referred To Contact Referral ID Status Reason Start Date Expiration Date Visits Re quested Visits Authorized [id number] 1 1 Encounter Details Date Type Department Care Team (Latest Contact Info) Description 01/02/2022 11:00 AM CDT Home Care Visit [facility] Home Health [address] [address] [address] [place] [address] Diann Hernandez, MOE OT INITIAL EVALUATION Social History Tobacco Use [...] on file 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 Gender Identity Female 02/08/2020 6:39 PM CDT Sexual Orientation Not on file documented as of this encounter Last Filed Vital Signs Vital Sign Reading Time Taken Comments Blood Pressure 132/64 01/02/2022 11:32 AM CDT Pulse 73 01/02/2022 11:32 AM CDT Temperature 37 ??C (98.6 ??F) 01/02/2022 11:32 AM CDT Respiratory Rate 18 01/02/2022 11:32 AM CDT Oxygen Saturation 98% 01/02/2022 11:32 AM CDT Inhaled Oxygen Concentration - - Weight - - Height - - Body Mass Index - - documented in this encounter Miscellaneous Notes * Home Health Plan for Next Visit - Diann Hernandez OT - 01/02/2022 11:15 AM CDT Reason for today's visit OT evaluation completed along with setting of goals with patient. Discuss plan of care with patient and grandson. Pt's daughter is primary caregiver and contact however she works during the day and thus pt's grandson was at home to help out with meals and decrease pt's risk for falls. Plan for 1- 2 visitswk3 starting week of 01/06. Patient has painful spot on her Lheel from the hospital environment however it is not an open wound. Pt has previously had a pressure wound of some sort on her buttocks and patient reported some discomfort during session on buttocks. OT assessed pt's buttocks and no open skin noted. Pt's daughter had previously applied barrier cream to skin. Increased time necessary for education on decreasing pressure to area on buttocks to prevent developement of future pressure ulcers. Pt and pt's grandson verbalized understanding. Patient's functional limitations include her strength, pain, activity tolerance/endurance, balance and safety awareness. Patient presented with a decline in function after returning home from the hospital. Patient requires skilled OT to address ADL retraining, fall prevention, compensatory strategy training, and AE/DME training to maximize functional independence, improve qualtiy of life and return to prior level of functioning, Without skilled OT, patient is at risk for falls and re-hospitalization. Discharge planning within next 3 weeks and/or when OT goals are met. Plan for next visit: transfer training education/practice; HEP implementation; home safety education regarding clutter in bedroom and moving lamp to pt's bedside table to decrease fall risk during the night; education on preventing pressure ulcers; tub transfer if pt has seat that her daughter ordered. documented in this encounter Plan of Treatment Upcoming Encounters Date Type Department Care Team (Latest Contact Info) Description 07/13/2024 9:00 AM MOTORCYCLE MECHANIC Hospital Encounter [facility] GI Lab [address] [place] [address] Jaya Grier MD [address] [place] [address] [address] [place] [address] 07/13/2024 9:00 AM MOTORCYCLE MECHANIC - 07/13/2024 9:30 AM MOTORCYCLE MECHANIC Surgery [facility] GI Lab [address] [place] [address] Jaya Grier MD [address] [place] [address] [address] [place] [address] ESOPHAGOGASTRODUODENOSCOPY Scheduled Procedures Name Priority Associated Diagnoses Date/Ti me ESOPHAGOGASTRODUODENOSCOPY Anemia, unspecified type Gastritis without bleeding, unspecified chronicity, unspecified gastritis type 07/13/2024 9:00 AM MOTORCYCLE MECHANIC COLONOSCOPY Iron deficiency anemia due to [...] home health visit Disciplines: SN, PT, OT, SQUAD BOSS, APPOINTMENT MANAGER, Skilled Disciplines Monitor patient's vital signs every [...] visit during episode of care Description: Home finish mender to measure vital signs during every home [...] Goal:Demonstrate use of safety precautions Completed OT educated pt and pt's grandson on use of FWW at all times within home to prevent LOB episodes, on the need to move a lamp closer to bedside table to decrease risk for falls while pt gets up to use the restroom as lamp is currently positioned far away from the side of bed that pt gets up on. There is also significant clutter in bedroom that makes pathway very narrow and FWW legs caught on several items during trip in/out of bedroom. Assess safety Description: Assess patient safety Problem:Safety concerns Goal:Demonstrate use of safety precautions Completed Pt verbalized no dizziness upon standing from recliner or bed. Pt used FWW during mobility within home with no LOB episodes. Instruct on the prevention of deep vein thrombosis Description: Instruct patient/caregiver on signs and symptoms, preventative measures related to DVT, and provide ongoing home support based on patient needs Problem:DVT Prevention and Management Goal:Demonstrate knowledge of anticoagulant therapy Completed OT educated pt on s/s of DVT and pt verbalized understanding. Instruct on pain management techniques Description: Instruct in pharmacologic and nonpharmacologic pain management techniques. Problem:Pain Goal:Report that pain has been reduced or controlled Completed OT educated pt on adhering to a consistent schedule with Tylenol, as prescribed by MD to keep pain at bay and prevent spikes in pain during therapy session. Pt verbalized understanding. Pressure Relief Description: Instruct patient/caregiver and perform pressure relief techniques Problem:OT Positioning/Pressure Relief Completed Increased time necessary spent on pressure relief education due to pt's increased risk for developing pressure injuries due to previous history with them on her buttocks and heels. OT educated pt and pt's grandson that patient should change position and stand up at least once every hour to allow for blood flow and circulation in buttocks area. OT advised pt to float heels from a pillow while she sleeps so that sore area on heel does not become worse. Pt and pt's grandson verbalized understanding. Home Exercise Program (HEP) Description: Instruct patient/caregiver in HEP completion. Problem:OT Activity Tolerance/Energy Conservation Completed Future OT sessions to focus on and implement HEP to address and increase strength and mobility in BUEs. Pt agreeable. Transfer Training Description: Instruct patient/caregiver and perform transfer training. Problem:OT Impaired ADLs Completed Pt educated on reaching back for seated surface whenever sitting down in chair/recliner to decrease risk for falls and/or sliding of seat. Pt verbalized understanding. Adaptive Equipment/DME Education Description: Recommend and assist with obtaining assistive devices/DME. Problem:OT Impaired ADLs Completed Pt reported that her daughter purchased a seat for the shower however she could not further describe the DME. Future OT sessions to look at specific type of shower chairs and make sure pt is confident in getting in/out of shower/tub combo with AE/DME as needed to increace pt's safety. documented in this encounter Care Teams Dietary Aid Relationship Specialty Start Date End Date Cherelle Corcoran MD PCP - General Family Medicine 08/30/19 Mark Queen MD Consulting Physician Infectious Diseases 01/10/20 documented as of this encounter
--- OUTSIDE RECORDS SUMMARY | 2024-07-04 04:14 | XMS_ITS | Encounter Summary ---
Author Organization [facility] Address [address] [facility] [address] [place] [address] Care Team Providers Care Game Attendant Name Role Phone Cherelle Corcoran MD Primary Care Pro vider Mark Queen MD Unavailable [phone] Encounter Details Date Type Department Care Team (Late st Contact Info) Description 03/14/2022 Telephone [facility] Primary Care [address] [facility] [address] [place] [address] Cherelle Corcoran MD [facility] [address] [place] [address] Social History Tobacco Use Types [...] week 09/10/2021 How often do you attend [facility] or amish services? 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 documented in this encounter Plan of Treatment Upcoming Encounters Date Type Department Care Team (Latest Contact Info) Description 07/13/2024 9:00 AM STATION ENGINEER Hospital Encounter [facility] GI Lab [address] [place] [address] Jaya Grier MD [address] [place] [address] [address] [place] [address] 07/13/2024 9:00 AM STATION ENGINEER - 07/13/2024 9:30 AM STATION ENGINEER Surgery [facility] GI Lab [address] [place] [address] Jaya Grier MD [address] [place] [address] [address] [place] [address] ESOPHAGOGASTRODUODENOSCOPY Scheduled Procedures Name Priority Associated Diagnoses Date/Ti ma ESOPHAGOGASTRODUODENOSCOPY Anemia, unspecified type Gastritis without bleeding, unspecified chronicity, unspecified gastritis type 07/13/2024 9:00 AM STATION ENGINEER COLONOSCOPY Iron deficiency anemia due to chronic blood loss documented as of this encounter Visit Diagnoses Not on filedocumented in this encounter Care Teams Game Attendant Relationship Specialty Start Date End Date Cherelle Corcoran MD PCP - General Family Medicine 08/30/19 Mark Queen MD Consulting Physician Infectious Diseases 01/10/20 documented as of this encounter
--- OUTSIDE RECORDS SUMMARY | 2024-07-04 04:14 | XMS_ITS | Encounter Summary ---
Author Organization [facility] Address [address] [place] [address] Phone Care Team Providers Care Soaker Name Role Phone Cherelle Corcoran MD Primary Care Pro vider Mark Queen MD Unavailable [phone] Reason for Visit * Auth/Cert Specialty Diagnoses / Procedures Referred By Maryse t Referred To Contact Referral ID Status Reason Start Date Expiration Date Visits Re quested Visits Authorized [id number] 1 1 Encounter Details Date Type Department Care Team (Late st Contact Info) Description 01/22/2022 Home Care Visit [facility] Home Health - [address] [address] [address] [place] [address] Yamilka Hoang, PT PT DISCIPLINE DISCHARGE Social History Tobacco Use [...] week 09/10/2021 How often do you attend [facility] or mosque services? 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 Gender Identity Female 02/08/2020 6:39 PM CDT Sexual Orientation Not on file documented as of this encounter Plan of Treatment Upcoming Encounters Date Type Department Care Team (Latest Contact Info) Description 07/13/2024 9:00 AM DEVELOPMENT ADMINISTRATOR Hospital Encounter [facility] GI Lab [address] [place] [address] Jaya Grier MD [address] [facility] [address] [place] [address] 07/13/2024 9:00 AM DEVELOPMENT ADMINISTRATOR - 07/13/2024 9:30 AM DEVELOPMENT ADMINISTRATOR Surgery [facility] GI Lab [address] [place] [address] Jaya Grier MD [facility] [facility] [address] [place] [address] ESOPHAGOGASTRODUODENOSCOPY Scheduled Procedures Name Priority Associated Diagnoses Date/Ti me ESOPHAGOGASTRODUODENOSCOPY Anemia, unspecified type Gastritis without bleeding, unspecified chronicity, unspecified gastritis type 07/13/2024 9:00 AM DEVELOPMENT ADMINISTRATOR COLONOSCOPY Iron deficiency anemia due to [...] home health visit Disciplines: SN, PT, OT, WEDDING DAY COORDINATOR, GLOBAL MARKETING COORDINATOR, Skilled Disciplines Monitor patient's vital signs every [...] goal intervention scheduled/docume nted in this visit PT Impaired Functional Mobility Disciplines: Physical Therapy Impaired functional mobility 12/31/2021 Resolved on 01/22/2022 4 goals linked to scheduled/docume nted interventions Wound Care Disciplines: Core Disciplines Wound care [...] visit during episode of care Description: Home technology infusion specialist to measure vital signs during every [...] pain has been reduced or controlled Description: Patient/caregiver/famil y will verbalize satisfaction with the patients level of pain and symptom control. Pain No Improvement in balance Description: Improve TUG by 15 seconds compared to initial score 55 seconds at initial eval, by 01/25 PT Impaired Functional Mobility Completed Yes Improvement in Gait/Stair Training Description: Patient will ambulate 100 feet in home / out of home using 2WW with SBA of caregiver by 01/25 Patient will negotiate 3 steps using walker with CGA of caregiver out of home to access transportation/communit y activities by 01/25 PT Impaired Functional Mobility Completed Yes Performance with HEP Description: Patient/caregiver to be independent with progressed HEP by therapy discharge. PT Impaired Functional Mobility Completed Yes Improvement in Performance with Bed Mobility/Transfers Description: Patient will perform sit to stand transfers from a variety of surfaces in home using 2WW with SBA of caregiver by 01/25 Patient will perform bed transfers / repositioning with SBA of caregiver by 01/25 PT Impaired Functional Mobility Adequate for Discharge No Pt req Min (A) for supine > sit, caregivers are assisting with. PT did recommend trial of a bed rail, pt's dtr verb agreement Progression towards healing Description: Wound show progression [...] pain has been reduced or controlled Scheduled Skilled assessment wound Description: Full wound assessment [...] Scheduled documented in this encounter Care Teams Soaker Relationship Specialty Start Date End Date Cherelle Corcoran MD PCP - General Family Medicine 08/30/19 Mark Queen MD Consulting Physician Infectious Diseases 01/10/20 documented as of this encounter
--- OUTSIDE RECORDS SUMMARY | 2024-07-04 04:14 | XMS_ITS | Encounter Summary ---
Author Organization [facility] Address [address] [place] [address] Phone Care Team Providers Care Planning Rn Name Role Phone Cherelle Corcoran MD Primary Care Pro vider Mark Queen MD Unavailable [phone] Reason for Visit * Auth/Cert Specialty Diagnoses / Procedures Referred By Maryse lama Referred To Contact Referral ID Status Reason Start Date Expiration Date Visits Re quested Visits Authorized [id number] 1 1 Encounter Details Date Type Department Care Team (Late st Contact Info) Description 01/09/2022 Home Care Visit [facility] Home Health - [address] [address] [address] [place] [address] Jamila Cabrear, RN TELEPHONE ENCOUNTER Social History Tobacco Use [...] you attend chur ch or rastafari services? 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 GI Lab [address] [place] [address] Jaya Grier MD [facility] [facility] [address] [place] [address] 07/13/2024 9:00 AM SURVEILLANCE OBSERVER - 07/13/2024 9:30 AM SURVEILLANCE OBSERVER Surgery [facility] GI Lab [address] [place] [address] Jaya Grier MD [facility] [facility] [address] [place] [address] ESOPHAGOGASTRODUODENOSCOPY Scheduled Procedures Name Priority Associated Diagnoses Date/Ti me ESOPHAGOGASTRODUODENOSCOPY Anemia, unspecified type Gastritis without bleeding, unspecified chronicity, unspecified gastritis type 07/13/2024 9:00 AM SURVEILLANCE OBSERVER COLONOSCOPY Iron deficiency anemia due to chronic blood loss documented as of this encounter Visit Diagnoses Not on filedocumented in this encounter Care Teams Planning Rn Relationship Specialty Start Date End Date Cherelle Corcoran MD PCP - General Family Medicine 08/30/19 Mark Queen MD Consulting Physician Infectious Diseases 01/10/20 documented as of this encounter
--- OUTSIDE RECORDS SUMMARY | 2024-07-04 04:14 | XMS_ITS | Encounter Summary ---
Author Organization [facility] Address [address] [place] [address] Phone Care Team Providers Care Export Clerk Name Role Phone Cherelle Corcoran MD Primary Care Pro vider Mark Queen MD Unavailable [phone] Reason for Visit * Reason Onset Date Comments Glucose readings 01/03/2022 Encounter Details Date Type Department Care Team (Late st Contact Info) Description 01/03/2022 Telephone [facility] Endocrinology Metabolism and Lipid [address] [facility] 5th [place] [address] [place] [address] Yoly Herrera, RN Glucose readings Social History Tobacco Use Types Packs/Day Years [...] week 09/10/2021 How often do you attend [facility] or episcopalian services? Never 09/10/2021 Do you [...] slept in a prison (including now)? No 09/10/2021 Comments No Sex and Gender Information Value Date Recorded Sex Assigned at Not on file Legal Sex Female 9:03 AM ART SPECIALIST Gender Identity Female 02/08/2020 6:39 PM CDT Sexual Orientation Not on file documented as of this encounter Miscellaneous Notes * Telephone Encounter - Yoly Herrera RN - 01/03/2022 8:52 PM CDT History: 71 y old female with PMH of Type II DM, HTN,HDL , mood disorder last completed a telemedicine appointment with Dr Kauffman on 12/30/2021 for follow up of her Diabetes The home health nurse send glucose readings from her Madhav I spoke with the patient's daughter who said she would upload the reader. She has instructions fromCee Oakes Diabetic Medications: Lantus 27 units Humalog 8 units SSI 2:50>150 Trulicity 0.75 mg Next appointment: 03/03/2022 Readings: BS log despite recent insulin increase from recent telehealth visit. 01/02/22 12:19 pm 310 11:45 am 317 10:35 am 296 6:27 am 205 3:22 am 199 01/01/22 11:19 pm 215 8:48 pm 184 6:54 pm 158 6:39 pm 201 Plan: - Dr Kauffman reviewed the patient's glucose readings and made the following recommendations: - Please ask her to record BG before meals and at bedtime - Increase lantus to 34 units and Humalog to 12 units and continue sliding scale - Remind us to review readings in Madhav in a week (if able to upload) documented in this encounter Plan of Treatment Upcoming Encounters Date Type Department Care Team (Latest Contact Info) Description 07/13/2024 9:00 AM ART SPECIALIST Hospital Encounter [facility] GI Lab [address] [place] [address] Jaya Grier MD [address] [place] [address] [address] [place] [address] 07/13/2024 9:00 AM ART SPECIALIST - 07/13/2024 9:30 AM ART SPECIALIST Surgery [facility] GI Lab [address] [place] [address] Jaya Grier MD [address] [facility] [address] [place] [address] ESOPHAGOGASTRODUODENOSCOPY Scheduled Procedures Name Priority Associated Diagnoses Date/Ti me ESOPHAGOGASTRODUODENOSCOPY Anemia, unspecified type Gastritis without bleeding, unspecified chronicity, unspecified gastritis type 07/13/2024 9:00 AM ART SPECIALIST COLONOSCOPY Iron deficiency anemia due to chronic blood loss documented as of this encounter Visit Diagnoses Not on filedocumented in this encounter Care Teams Export Clerk Relationship Specialty Start Date End Date Cherelle Corcoran MD PCP - General Family Medicine 08/30/19 Mark Queen MD Consulting Physician Infectious Diseases 01/10/20 documented as of this encounter
--- OUTSIDE RECORDS SUMMARY | 2024-07-04 04:14 | XMS_ITS | Encounter Summary ---
Author Organization [facility] Home Care Servic es Address [address] [place] [address] Phone Care Team Providers Care Boatbuilder Supervisor Name Role Phone Cherelle Corcoran MD Primary Care Pro vider Mark Queen MD Unavailable [phone]- [phone] Reason for Visit * Auth/Cert Specialty Diagnoses / Procedures Referred By Maryse t Referred To Contact Referral ID Status Reason Start Date Expiration Date Visits Re quested Visits Authorized [id number] 1 1 Encounter Details Date Type Department Care Team (Late st Contact Info) Description 01/08/2022 10:30 AM CDT Home Care Visit [facility] Home Health [address] [place] [address] Hanny Cruz, ANG PT HOME VISIT Social [...] attend chur ch or buddhism services? 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 Gender Identity Female 02/08/2020 6:39 PM CDT Sexual Orientation Not on file documented as of this encounter Miscellaneous Notes * Home Health Plan for Next Visit - Hanny Cruz PTA - 01/08/2022 10:38 AM CDT Reason for today's visit to progress with gait, balance and standing exercises Discuss plan of care pt and caregiver, Sannra Discharge planning when appropriate Plan for next visit to progress with gait, balance and standing exercises did update care team on pts heel wound that pt reports 01/29 when trying to sleep did instruct pt and caregiver on floating heel at night to prevent pressure to area nursing to see pt tomorrow instructed pt not to ambulate on her own but to have assista at all times pt is agreeable with poc documented in this encounter Plan of Treatment Upcoming Encounters Date Type Department Care Team (Latest Contact Info) Description 07/13/2024 9:00 AM PITCH WORKER Hospital Encounter [facility] GI [facility] [address] [place] [id number] Jaya Grier MD [address] [place] [address] DR GAINES [address] [place] [address] 07/13/2024 9:00 AM PITCH WORKER - 07/13/2024 9:30 AM PITCH WORKER Surgery [facility] [address] [place] [address] Jaya Grier MD [facility] [address] GAINES [address] [place] [address] ESOPHAGOGASTRODUODENOSCOPY Scheduled Procedures Name Priority Associated Diagnoses Date/Ti de ESOPHAGOGASTRODUODENOSCOPY Anemia, unspecified type Gastritis without bleeding, unspecified chronicity, unspecified gastritis type 07/13/2024 9:00 AM PITCH WORKER COLONOSCOPY Iron deficiency anemia due to [...] home health visit Disciplines: SN, PT, OT, PLASTER MIXER, HAND SHAPER, Skilled Disciplines Monitor patient's vital signs every [...] Therapy Impaired functional mobility 12/31/2021 Active - 6 problem interventions scheduled/documen bruno in this visit Goals Goal Associated Problem Outcome Goal Met? Visit Notes Patient receives care at the most appropriate care setting Description: Patient receives care at the most appropriate care setting. Homebound Status No Measure vital signs during every home health visit during episode of care Description: Home pbx repairer to measure vital signs during every [...] Goal:Demonstrate use of safety precautions Completed pt to have supervision at all times with gait activiites instructed caregiver Sylvie on this and she states understanding Instruct on the prevention of deep vein [...] been reduced or controlled Completed pt takes pain meds as needed for pain Home Exercise Program (HEP) Description: Instruct patient/caregiver and perform HEP. Problem:PT Impaired Functional Mobility Completed pt was instructed on supine exercises including anklepumping, quad sets and glut sets holding 3 seconds each, saqs holding 3 seconds, hip abd/add and heelslides pt completed 10 reps of each cues to complete correctly pt declined standing exercises today due to back pain 01/29 Gait/Stair Training Description: Instruct patient/caregiver and perform gait/stair training. Problem:PT Impaired Functional Mobility Completed gait in the home over level surfaces using wheeled walker and CGA pt exhibits flexion at neck, hips and decreased heel toe gait has min sob noted with gait pt tolerated 20 ft x 2 and then 50 ft over level indoor surfaces Bed Mobility/Transfer Training Description: Instruct patient/caregiver and perform bed mobility/transfer training. Problem:PT Impaired Functional Mobility Completed supine to from sit with min asst working with pt on sitting and lifting legs vs crawling into the bed sit to from stand depending on ues to push up takes several attempts from recliner Balance Training/Activities Description: Instruct patient/caregiver and perform balance training activities. Problem:PT Impaired Functional Mobility Completed while standing instructed pt on performing static stance arms down to side for 1 minute pt does sway but had no lob cues to engage abd and buttocks then staggered stance each leg for 30 seconds with arms down to side pt slightly unsteady CGA Assistive Devices/DME Description: Recommend and assist with obtaining assistive devices/DME. Problem:PT Impaired Functional Mobility Completed Therapeutic Exercise Description: Perform therapeutic exercise, progressing as tolerated. Problem:PT Impaired Functional Mobility Completed see HEP comments documented in this encounter Care Teams Boatbuilder Supervisor Relationship Specialty Start Date End Date Cherelle Corcoran MD PCP - General Family Medicine 08/30/19 Mark Queen MD Consulting Physician Infectious Diseases 01/10/20 documented as of this encounter
--- OUTSIDE RECORDS SUMMARY | 2024-07-04 04:14 | XMS_ITS | Encounter Summary ---
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 GI Lab [address] [place] [address] Jaya Grier MD [address] [facility] [address] GA[address] [place] [address] 07/13/2024 9:00 AM HOT TOP LINER - 07/13/2024 9:30 AM HOT TOP LINER Surgery [facility] Lab [address] [place] [address] Jaya Grier MD [address] [facility] [address] GAINES [address] [place] [address] ESOPHAGOGASTRODUODENOSCOPY Scheduled Procedures Name Priority Associated Diagnoses Date/Ti me ESOPHAGOGASTRODUODENOSCOPY Anemia, unspecified type Gastritis without bleeding, unspecified chronicity, unspecified gastritis type 07/13/2024 9:00 AM HOT TOP LINER COLONOSCOPY Iron deficiency anemia due to chronic blood loss documented as of this encounter Procedures Procedure Name Priority Date/Time Associated Diagnosis Comments EGFR Routine 04/01/2022 4:13 PM CDT Stage 3b chronic kidney disease (HCC) DIFFERENTIAL AUTO Routine 04/01/2022 4:1 3 PM CDT Anemia in stage 3b chronic kidney disease (HCC) IRON PROFILE W/ IBC Routine 04/01/2022 4 :13 PM CDT Anemia in stage 3b chronic kidney disease (HCC) CBC WITH AUTO DIFFERENTIAL Routine 04/01/2022 4:13 PM CDT Anemia in stage 3b chronic kidney disease (HCC) PTH Routine 04/01/2022 4:13 PM CDT Stage 3b chronic kidney disease (HCC) COMPREHENSIVE METABOLIC PANEL Routine 04/01/2022 4:13 PM CDT Stage 3b chronic kidney disease (HCC) documented in this encounter Results * eGFR (04/01/2022 4:13 PM CDT) eGFR 26 mL/min/1. 73 m2 NILSA RODRIGES Comment: Interpretive [...] was last reviewed 2021. Testing performed by: [facility], [address] [place] [address]., [id number] Blood 04/01/2022 4:13 PM CDT 04/01/2022 4:31 PM CDT us Markie Ryan MD LAB BLOOD ORDERABLES Final Re sult NILSA RODRIGES [address] [facility] Department [place] [address] * Differential, auto (04/01/2022 4:13 PM CDT) Neutrophil abs 5.9 1.7 - 6.5 K/cumm NILSA RODRIGES Comment:Testing performed by : [address] [address] Imm gran abs 0.1 0.0 - 0.1 K/cumm [facility] Comment:Testing performed by : [address] [address] Lymphocyte abs 2.4 0.8 - 3.3 K/cumm [facility] Comment:Testing performed by : [address] [address] Monocyte abs 0.6 0.2 - 0.8 K/cumm [facility] Comment:Testing performed by : [address] [address] Eosinophil abs 0.2 0.0 - 0.5 K/cumm [facility] Comment:Testing performed by : [address] [address] Basophil abs 0.0 0.0 - 0.1 K/cumm [facility] Comment:Testing performed by : [address] [address] Neutrophil pct 64.1 % [facility] Comment: Interpretive Data Percent cell count reference ranges are not reported, since discordance with absolute values may lead to misinterpretation of CBC data. Current Interpretive Data was last revised on 2017. Testing performed by: [address] [address] Imm gran pct 0.5 % [facility] Comment: Interpretive Data Percent cell count reference ranges are not reported, since discordance with absolute values may lead to misinterpretation of CBC data. Current Interpretive Data was last revised on 2017. Testing performed by: [address] [address] Lymphocyte pct 26.6 % [facility] Comment: Interpretive Data Percent cell count reference ranges are not reported, since discordance with absolute values may lead to misinterpretation of CBC data. Current Interpretive Data was last revised on 2017. Testing performed by: [address] [address] Monocyte pct 6.4 % [facility] Comment: Interpretive Data Percent cell count reference ranges are not reported, since discordance with absolute values may lead to misinterpretation of CBC data. Current Interpretive Data was last revised on 2017. Testing performed by: [address] [address] Eosinophil pct 2.0 % NILSA Comment: Interpretive Data Percent cell count reference ranges are not reported, since discordance with absolute values may lead to misinterpretation of CBC data. Current Interpretive Data was last revised on 2017. Testing performed by: [address] [address] Basophil pct 0.4 % NILSA Comment: Interpretive Data Percent cell count reference ranges are not reported, since discordance with absolute values may lead to misinterpretation of CBC data. Current Interpretive Data was last revised on 2017. Testing performed by: [address] [address] Blood 04/01/2022 4:13 PM CDT 04/01/2022 4:31 PM CDT us Markie Ryan MD LAB BLOOD ORDERABLES Final Re sult [facility] [address] [facility] Department [place] [address] * (ABNORMAL) Iron profile w/ IBC (04/01/2022 4:13 PM CDT) Iron 55 35 - 145 mcg/dL NILSA Comment:Testing performed by : [address] [address] TIBC 237(L) 250 - 400 mcg/dL NILSA Comment:Testing performed by : [address] [address] Transferrin saturation 23 20 - 50 % NILSA Comment:Testing performed by : [address] [address] Blood 04/01/2022 4:13 PM CDT 04/01/2022 4:31 PM CDT Markie Ryan MD LAB BLOOD ORDERABLES Final Re sult NILSA [address] [facility] Department [place] [address] * (ABNORMAL) CBC with auto differential (04/01/2022 4:13 PM CDT) [facility] Signature WBC 9.2 3.8 - 9.9 K/cumm NILSA Comment:Testing performed by : [address] [address] Hgb 9.3(L) 11.9 - 15.5 g/dL NILSA Comment:Testing performed by : [address] [address] Hct 29.8(L) 35.6 - 45.5 % NILSA Comment:Testing performed by : [address] [address] Plt 297 150 - 400 K/cumm NILSA Comment:Testing performed by : [address] [address] MPV 11.0 9.1 - 12.3 fL NILSA Comment:Testing performed by : [address] [address] RBC 3.14(L) 3.90 - 5.20 M/cumm NILSA Comment:Testing performed by : [address] [address] MCV 94.9 81.3 - 96.4 fL NILSA Comment:Testing performed by : [address] [address] MCH 29.6 27.1 - 33.3 pg NILSA Comment:Testing performed by : [address] [address] MCHC 31.2(L) 32.3 - 35.7 g/dL NILSA Comment:Testing performed by : [address] [address] RDW CV 15.3(H) 11.1 - 14.9 % NILSA Comment:Testing performed by : [address], [address] RDW SD 53.0(H) 35.7 - 48.1 fL NILSA Comment:Testing performed by : [address] [address] NRBC abs 0.00 0.00 - 0.01 K/cumm NILSA RODRIGES Comment:Testing performed by : [address] [address] Blood 04/01/2022 4:13 PM CDT 04/01/2022 4:31 PM CDT us Markie Ryan MD LAB BLOOD ORDERABLES Final Re sult NILSA [address] [facility] Department [place] [address] * (ABNORMAL) Comprehensive metabolic panel (04/01/2022 4:13 PM CDT) Sodium 141 135 - 145 mmol/L NILSA Comment:Testing performed by : [address] [address] Potassium, pl 4.6 3.3 - 4.9 mmol/L NILSA Comment:Testing performed by : [address] [address] Chloride 102 97 - 110 mmol/L NILSA Comment:Testing performed by : [address] [address] CO2 29 22 - 32 mmol/L NILSA Comment:Testing performed by : [address] [address] Anion gap 10 2 - 15 mmol/L NILSA Comment:Testing performed by : [address] [address] BUN 39(H) 8 - 25 mg/dL NILSA Comment:Testing performed by : [address] [address] Creatinine 2.00(H) 0.60 - 1.10 mg/dL NILSA Comment:Testing performed by : [address] [address] Glucose 324(H) 70 - 199 mg/dL NILSA Comment: Interpretive [...] was last revised 2017. Testing performed by: [address] [address] Calcium 9.9 8.5 - 10.3 mg/dL NILSA Comment:Testing performed by : [address] [address] Bilirubin, total 0.2 0.1 - 1.2 mg/dL NILSA Comment:Testing performed by : [address] [address] Protein, pl 8.0 6.5 - 8.5 g/dL NILSA Comment:Testing performed by : [address] [address] Albumin 3.8 3.5 - 5.0 g/dL NILSA Comment:Testing performed by : [address] [address] Alk phos 137(H) 40 - 130 Units/L NILSA Comment:Testing performed by : [address] [address] ALT 16 7 - 45 Units/L NILSA Comment:Testing performed by : [address] [address] AST 16 10 - 45 Units/L NILSA Comment:Testing performed by : [address] [address] Blood 04/01/2022 4:13 PM CDT 04/01/2022 4:31 PM CDT us Markie Ryan MD LAB BLOOD ORDERABLES Final Re sult Performing Organization Address City/[facility]/ZIP Co de Phone Number NILSA [address] [facility] [place] [address] * PTH (04/01/2022 4:13 PM CDT) PTH 38 15 - 65 pg/mL NILSA Comment:Testing performed by : [facility], [address] [place] [address], [address] Blood 04/01/2022 4:13 PM CDT 04/01/2022 4:31 PM CDT us Markie Ryan MD LAB BLOOD ORDERABLES Edited R esult - Final Performing Organization Address City/[facility] Co de Phone Number NILSA [address] [facility] [place] [address] documented in this encounter Visit Diagnoses Diagnosis Stage 3b chronic kidney disease (HCC) Anemia in stage 3b chronic kidney disease (HCC) Anemia, unspecified type Gastritis without bleeding, unspecified chronicity, unspecified gastritis type documented in this encounter Care Teams Supervisor Cell Operation Relationship Specialty Start Date End Date Cherelle Corcoran MD PCP - General Family Medicine 08/30/19 Mark Queen MD Consulting Physician Infectious Diseases 01/10/20 documented as of this encounter
--- OUTSIDE RECORDS SUMMARY | 2024-07-04 04:14 | XMS_ITS | Encounter Summary ---
Author Organization [facility] Address [address] [facility] [address] [place] [address] Phone Care Team Providers Care Residential Appraiser Name Role Phone Cherelle Corcoran MD Primary Care Pro vider QueenMark Perez MD Unavailable [phone] Reason for Visit * Consultation (Routine) - Closed Specialty Diagnoses / Procedures Referred By Maryse lama Referred To Contact Endocrinology Diagnoses Other diabetic neurological complication associated with type 2 diabetes mellitus (HCC) Type 2 diabetes mellitus with diabetic neuropathy, with long-term current use of insulin (HCC) Cherelle Corcoran MD Phone: tel: fax: Anant Kauffman MD [address] [facility] [id number] [place] [address] Phone: tel: fax: Referral ID Status Reason Start Date Expiration Date V isits Requested Visits Authorized [id number] Closed Specialty Services Required 12/30/2021 01/29/2023 99 99 Encounter Details Date Type Department Care Team (Latest Contact Info) Description 03/03/2022 2:20 PM CDT Telemedicine [facility] Endocrinology Metabolism and Lipid [address] [facility] [address] [place] [address] [place] [address] Anant Kauffman MD [address] [phone] [place] [address] Other diabetic neurological complication associated with type 2 diabetes mellitus (HCC) (Primary Dx); Stage 3b chronic kidney disease (HCC); Hyperlipidemia associated with type 2 diabetes mellitus (HCC); Type 2 diabetes mellitus with diabetic neuropathy, with long-term current use of insulin (CMS/HCC) (HCC) Social History Tobacco Use Types [...] you attend chur ch or protestant services? 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 Endocrine Follow Up Patient Visit Subjective Televisit with 71 y.o. female presenting for follow up of Type II DM . Last encounter 12/30/21 HPI: This was a telemedicine visit with Barbara Chakraborty with her daughter which took place via real-time video connection with [employer]. During the visit, I was located in the office and the patient was located at home in the [facility]. The patient visit started at 2:21 pm pm and ended at 4:54 pm . My total encounter time on 03/03/2022 was 19 minutes which was spent in the activities documented in the note.This includes time spent prior to the visit and after the visit in direct care of the patient. Thistime does not include time spent in any [...] billed and/or responsible for any applicable copayments. Televisit with 71 y old female with PMH of [...] Tested positive for metapneumovirus Current regimen lantus 30 units humalog 10 unit with meals + SSI 1 :50 for BG > 150 mg/dl and Trulicity 0.75 mg/dl ( restarted around 12/04/21) She is on Madhav. 14 day madhav download She has neuropathy, on lyrica 150 mg Last eye exam 05/2021 , no DR She denied having any low Bg recently Wt has been stable 01/14/22 S Cr 1.80 12/18/21 S Cr 2 08/08/21 S cr 1.72 08/05/21 A1c 8 Alb/creat 1478 02/07/21 Tc 133 Trig 147 HDL 51 LDL 53 TSH 1.54 B 12 684 Vit D 21 Past Medical History: Diagnosis Date Arthritis Depression Diabetic neuropathy (CMS/HCC) (HCC) Hyperlipidemia Hypertension Schizophrenia (HCC) Type 2 [...] what is noted in the HPI Objective Lab/Radiology/Diagnostic Review: Lab Results Component Value Date TSH 1.52 09/02/2021 Lab Results Component Value Date CHOL 84 09/10/2021 TRIG 153 (H) 09/10/2021 HDL 33 (L) 09/10/2021 Lab Results Component Value Date PTH 40 10/16/2021 Assessment/Plan: Televisit with 71 y old female with PMH of Type II DM, HTN,HDL , mood disorder is here with her daughter for follow up of her Diabetes. Type II Dm Current regimen lantus 30- units humalog 10 unit with meals + SSI 2 :50 for BG > 150 mg/dl and Trulicity 0.75 mg/dl ( restarted around 12/04/21) Her HBA1c 7.5 % . Per her madhav data, her Bg is in target range 36 % of the time. GMI 8.1 % Her Bg has improved but not at goal yet Asked her to increase Trulicity to 1.5 mg weekly ( takes 2 doses of Trulicity 0.75 mg weekly till current supplies last) Continue current dose of insulin Asked her daughter to bring her reader to clinic in 2 weeks for download, will adjust her insulin doses based on her madhav data She also has CKD with albuminuria . Used to be on jardiance was stopped 2/2 STEFANO. Will consider restarting jardiance at a later date once s creatinine stabilizes UTD with eye exam no 08/05/21 A1c 8 Alb/creat 1478 Neuropathy: On lyrica 150 mg Will add vitamin B complex and alpha lipoic acid Hyperlipidemia : 02/07/21 Tc 133 Trig 147 HDL 51 LDL 53 09/10/21 Tc 84 Trig 153 HDL 33 LDL 20 On Atorvastatin 40 mg Continue same CKD 12/18/21 S Cr 2 With microalbuminuria Jardiance on hold 2/2 STEFANO Will consider starting low jardiance at later date( once s creatinine is stable) , given its renal protective role Problem List Cardiac and Vasculature Hyperlipidemia associated with type 2 diabetes mellitus (HCC) Endocrine and Metabolic Type 2 diabetes mellitus with diabetic neuropathy, with long-term current use of insulin (CMS/HCC) (HCC) Genitourinary and Reproductive Stage 3b chronic kidney disease (HCC) Neuro Diabetic neuropathy (CMS/HCC) (HCC) - Primary documented in this encounter Plan of Treatment Upcoming Encounters Date Type Department Care Team (Latest Contact Info) Description 07/13/2024 9:00 AM CLEANER OPERATOR Hospital Encounter [facility] GI Lab [address] [place] [address] Jaya Grier MD [address] [place] [address] DR GAINES [address] [place] [address] 07/13/2024 9:00 AM CLEANER OPERATOR - 07/13/2024 9:30 AM CLEANER OPERATOR Surgery [facility] Lab [address] [place] [address] Jaya Grier MD [address] [place] [address] DR GAINES [address] [place] [address] ESOPHAGOGASTRODUODENOSCOPY Scheduled Procedures Name Priority Associated Diagnoses Date/Ti nd ESOPHAGOGASTRODUODENOSCOPY Anemia, unspecified type Gastritis without bleeding, unspecified chronicity, unspecified gastritis type 07/13/2024 9:00 AM CLEANER OPERATOR COLONOSCOPY Iron deficiency anemia due to chronic blood loss documented as of this encounter Visit Diagnoses Diagnosis Other diabetic neurological complication associated with type 2 diabetes mellitus (HCC)- Primary Stage 3b chronic kidney disease (HCC) Hyperlipidemia associated with type 2 diabetes mellitus (HCC) Type 2 diabetes mellitus with diabetic neuropathy, with long-term current use of insulin (HCC) Anemia, unspecified type Gastritis without bleeding, unspecified chronicity, unspecified gastritis type documented in this encounter Care Teams Residential Appraiser Relationship Specialty Start Date End Date Cherelle Corcoran MD PCP - General Family Medicine 08/30/19 Mark Queen MD Consulting Physician Infectious Diseases 01/10/20 documented as of this encounter
--- OUTSIDE RECORDS SUMMARY | 2024-07-04 04:14 | XMS_ITS | Encounter Summary ---
Author Organization [facility] Address [address] [place] [address] Care Team Providers Care Tax Map Technician Name Role Phone Cherlele Corcoran MD Primary Care Pro vider Mark Queen MD Unavailable [phone] Reason for Visit * Reason Onset Date Comments Medical Question/Miscellaneous 04/11/2022 C hanges to Physical Therapy Encounter Details Date Type Department Care Team ([facility] st Contact Info) Description 04/11/2022 Telephone [facility] Primary Care [facility] [address] [place] [address] Cherelle Corcoran MD [address] [place] [address] [address] [place] [address] Medical Question/Miscellaneous (Changes to Physical Therapy) Social History Tobacco Use Types Packs/Day Years [...] on file Legal Sex Female 9:03 AM POWER SAW OPERATOR Gender Identity Female 02/08/2020 6:39 PM CDT Sexual Orientation Not on file documented as of this encounter Miscellaneous Notes * Telephone Encounter - Sandy Mota MA - 04/15/2022 12:04 PM CDT Lmov for pt daughter to return call. Please let her know home health order has been placed for pt. Thanks! * Telephone Encounter - Cherelle Corcoran MD - 04/15/2022 6:58 AM CDT Order in * Telephone Encounter - Sandy Mota MA - 04/11/2022 2:27 PM CDT Pt daughter aware that I have routed this message to Dr. Corcoran. I advised her that I will call her back once I know more. No further questions at this time. thanks * Telephone Encounter - Mikayla Langley - 04/11/2022 2:14 PM CDT Call Back Caller???s Concern: Patient daughter is calling back to check the status about getting the patient in home PT instead of using [facility]. Please advise. Caller???s Call back #: [phone] Does message need to be routed? Yes-Action Needed * Telephone Encounter - Sandy Mota MA - 04/11/2022 2:07 PM CDT Would this be something we can change or would they have to call her insurance to see if home health is covered benefit? Please advise. * Telephone Encounter - Darline Vences MA - 04/11/2022 9:18 AM CDT Medical Question/Miscellaneous Caller???s Concern: Areli (HIPAA Verified) is asking if Dr. Corcoran can change the Physical Therapy at [facility] to at Patient's home instead. Areli states patient has a hard time getting in and out of her truck and it would be easier for patient if she can do PT at home. Please advise and call back to Areli needed. Caller???s Call back #: [phone] Does message need to be routed?Yes-Action Needed documented in this encounter Plan of Treatment Upcoming Encounters Date Type Department Care Team (Latest Contact Info) Description 07/13/2024 9:00 AM POWER SAW OPERATOR Hospital Encounter [facility] [address] [place] [address] Jaya Grier MD [address] [place] [address] [address] GAINES [address] [place] [address] 07/13/2024 9:00 AM POWER SAW OPERATOR - 07/13/2024 9:30 AM POWER SAW OPERATOR Surgery [facility] [address] [place] [address] Jaya Grier MD [facility] [facility] [address] GAINES [address] [place] [address] ESOPHAGOGASTRODUODENOSCOPY Scheduled Procedures Name Priority Associated Diagnoses Date/Ti nd ESOPHAGOGASTRODUODENOSCOPY Anemia, unspecified type Gastritis without bleeding, unspecified chronicity, unspecified gastritis type 07/13/2024 9:00 AM POWER SAW OPERATOR COLONOSCOPY Iron deficiency anemia due to chronic blood loss documented as of this encounter Visit Diagnoses Diagnosis 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
--- OUTSIDE RECORDS SUMMARY | 2024-07-04 04:14 | XMS_ITS | Encounter Summary ---
Author Organization [facility] Address [address] [place] [address] Care Team Providers Care Wet Process Miller Head Assistant Name Role Phone Cherelle Corcoran MD Primary Care Pro vider Mark Queen MD Unavailable [phone] Reason for Visit * Reason Comments Chronic Kidney Disease - Follow Up Visit Encounter Details Date Type Department Care Team (Late st Contact Info) Description 02/12/2022 3:45 PM CDT Office Visit [facility] Nephrology [facility] [address] Markie Ryan MD [address] [facility] [address] [address] Stage 3b chronic kidney disease (HCC) (Primary Dx); Diabetic nephropathy (CMS/HCC) (HCC); Benign hypertensive kidney disease with chronic kidney disease stage I through stage IV, or unspecified(403.10); Anemia in stage 3b chronic kidney disease [...] you attend chur ch or adventism services? Never 09/10/2021 Do you belong to [...] on file Legal Sex Female 9:03 AM UTILIZATION COORDINATOR Gender Identity Female 02/08/2020 6:39 PM CDT Sexual Orientation Not on file documented as of this encounter Last Filed Vital Signs Vital Sign Reading Time Taken Comments Blood Pressure 148/69 02/12/2022 3:56 PM CDT Pulse 86 02/12/2022 3:56 PM CDT Temperature 36.7 ??C (98 ??F) 02/12/2022 3:56 PM CDT Respiratory Rate - - Oxygen Saturation - - Inhaled Oxygen Concentration - - Weight 75.3 kg (166 lb) 02/12/2022 3:56 PM CDT Height 157.5 cm (5' 2 ) 02/12/2022 3:56 PM CDT Body Mass Index 30.36 02/12/2022 3:56 PM CDT documented in this encounter Ordered Prescriptions Prescription Sig Dispense Quantity Refills Last Filled Start Date End Date valsartan (DIOVAN) 40 mg tablet Take 1 tablet (40 mg total) by mouth daily 90 tablet 3 02/12/2022 08/07/2022 documented in this encounter Progress Notes * Markie Ryan MD - 02/12/2022 3:45 PM CDT Images from the original note [...] per day. Most recent serum creatinine of 1.8 which is stable. Last hemoglobin of 9.3 with a T sat of 32%. KRISTYN- inhibitor previously held in the setting of worsening kidney function when she had pneumonia. Review of Systems Constitutional: Negative for appetite [...] Current Outpatient Medications Medication Sig Dispense Refill ??? acetaminophen (TYLENOL) 325 mg tablet Take 650 mg by mouth every 6 (six) hours as needed for pain ??? apixaban (ELIQUIS) 5 mg tablet Take 1 tablet (5 mg total) by mouth every 12 (twelve) hours 180 tablet 0 ??? atorvastatin (LIPITOR) 20 mg tablet Take 1 tablet (20 mg total) by mouth daily (Patient taking differently: Take 20 mg by mouth daily rx # [id number]) 90 tablet 1 ??? BD Alryn 2nd Gen Pen Needle 32 gauge x 5/32 needle USE TO INJECT BASAGLAR EVERY NIGHT AT BEDTIME ??? blood pressure monitor kit Check BP as instructed 1 kit 0 ??? carvediloL (COREG) 3.125 mg tablet Take 1 tablet (3.125 mg total) by mouth 2 (two) times a day with meals 60 tablet 1 ??? conner.stocking,thigh,reg,med misc Wear as much as possible 2 each 1 ??? dulaglutide (Trulicity) 0.75 mg/0.5 mL pen injector Inject 0.5 mL (0.75 mg total) under the skin once a week 6 mL 1 ??? ferrous sulfate 325 mg (65 mg of elemental iron) tablet Take 1 tablet (325 mg total) by mouth daily with breakfast 90 tablet 1 ??? flash glucose scanning reader (FreeStyle Madhav 2 [place]) misc Use to continually monitor glucose 1 each 0 ??? flash glucose sensor (FreeStyle Madhav 2 Sensor) kit Use to continually monitor glucose, change every 14 days 6 kit 3 ??? furosemide (LASIX) 40 mg tablet Take 1 tablet (40 mg total) by mouth 2 (two) times a day (Patient taking differently: Take 40 mg by mouth 2 (two) times a day rx# [id number]) 60 tablet 11 ??? insulin glargine (LANTUS, SEMGLEE) 100 unit/mL vial for injection Inject 25 Units under the skin nightly (Patient taking differently: Inject 30 Units under the skin nightly) 7.5 mL 11 ??? insulin lispro (HumaLOG, ADMELOG) 100 unit/mL pen for injection Inject 0-10 Units under the skin 3 (three) times a day with meals 27 mL 0 ??? lancets [facility] Check blood sugar up to 3 times a day 100 each 3 ??? lidocaine (LIDODERM) 5 % Place 1 patch on the skin daily Apply to painful area 12 hours per day, remove for 12 hours. 90 patch 1 ??? miscellaneous medical supply (Blood Pressure Cuff) [facility] Use to check blood pressure daily 1 each 1 ??? multivitamin with minerals tablet Take 1 tablet by mouth daily ??? OneTouch Verio test strips strip TEST 3 TO 4 TIMES DAILY 400 each 1 ??? pregabalin (LYRICA) 150 mg capsule Take 1 capsule (150 mg total) by mouth nightly 30 capsule 2 ??? risperiDONE (RisperDAL) 2 mg tablet Take 1 tablet (2 mg total) by mouth nightly 30 tablet 11 ??? syringe with needle, insulin (INSULIN SYRINGE-NEEDLE U-100 [facility]) 3 times a day ??? albuterol HFA (ProAir HFA) 90 mcg/actuation inhaler Inhale 2 puffs every 4 (four) hours as needed for wheezing or shortness of breath (Patient not taking: Reported on 02/12/2022) 8.5 g 0 ??? capsaicin (ZOSTRIX) 0.025 % cream Apply topically 2 (two) times a day (Patient not taking: Reported on 02/12/2022) 60 g ??? famotidine (PEPCID) 10 mg tablet Take 1 tablet (10 mg total) by mouth nightly (Patient not taking: Reported on 02/12/2022) 90 tablet 0 ??? ketoconazole (NIZORAL) 2 % cream Apply topically 2 (two) times a day (Patient not taking: Reported on 02/12/2022) 30 g 0 ??? polyethylene glycol (MIRALAX) 17 gram packet Take 1 packet (17 g total) by mouth daily (Patientnot taking: Reported on 02/12/2022) ??? valsartan (DIOVAN) 40 mg tablet Take 1 tablet (40 mg total) by mouth daily 90 tablet 3 No current facility-administered medications for this visit. No Known Allergies Vitals BP 148/69 (BP Location: Left arm, Patient Position: Sitting) Pulse 86 Temp 36.7 ??C (98 ??F) (Temporal) Ht 157.5 cm (5' 2 ) Wt 75.3 kg (166 lb) BMI 30.36 kg/m?? Physical Exam Constitutional: Appears well-developed and well-nourished. Head: Normocephalic and atraumatic. Eyes: EOM are normal. Neck: Normal range of motion. Cardiovascular: Normal rate and regular rhythm. Pulmonary/Chest: diminished breath sounds at bases bilaterally Abdominal: Soft. Bowel sounds are normal. Musculoskeletal: limited range of motion with 2 + bilateral lower extremity edema Neurological: Alert and oriented to person, place, and time. Skin: Skin is warm and dry. Psychiatric: Normal mood and affect. Assessment/Plan Diagnoses and all orders for this visit: Stage 3b chronic kidney disease (HCC) (N18.32) (Primary) - Comprehensive metabolic panel; Future - PTH; Future Diabetic nephropathy (CMS/HCC) (HCC) (E11.21) Benign hypertensive kidney disease with chronic kidney disease stage I through stage IV, or unspecified(403.10) (I12.9) Anemia in stage 3b chronic kidney disease (HCC) (N18.32, D63.1) - Iron profile w/ IBC; Future - CBC with auto differential; Future Other orders - valsartan (DIOVAN) 40 mg tablet; Take 1 tablet (40 mg total) by mouth daily CKD with a long-term history of diabetes. The patient does have underlying schizophrenia and glucose control has been difficult. Serum creatinine remaining stable. Blood pressure elevated in the office today. Last potassium unremarkable and I will start her on a low dose of an ARB and titrate up asable and repeat labs approximately 10-14 days after initiating. Multifactorial anemia including CKDand prior iron deficiency. Last iron stores unremarkable and will repeat a CBC with her labs as well. I gave her daughter information for a low- potassium diet since we are resuming an ARB. documented in this encounter Plan of Treatment Upcoming Encounters Date Type Department Care Team (Latest Contact Info) Description 07/13/2024 9:00 AM UTILIZATION COORDINATOR Hospital Encounter [facility] [address] [place] [address] Jaya Grier MD [address] [facility] [place] [address] 07/13/2024 9:00 AM UTILIZATION COORDINATOR - 07/13/2024 9:30 AM UTILIZATION COORDINATOR Surgery [facility] [address] [place] [address] Jaya Grier MD [address] [facility] [address] [place] [address] ESOPHAGOGASTRODUODENOSCOPY Scheduled Procedures Name Priority Associated Diagnoses Date/Ti me ESOPHAGOGASTRODUODENOSCOPY Anemia, unspecified type Gastritis without bleeding, unspecified chronicity, unspecified gastritis type 07/13/2024 9:00 AM UTILIZATION COORDINATOR COLONOSCOPY Iron deficiency anemia due to chronic blood loss documented as of this encounter Results * PTH (04/01/2022 4:13 PM CDT) PTH 38 15 - 65 pg/mL NILSA RODRIGES Comment:Testing performed by : [facility], [address] [place] [address]., [address] Blood 04/01/2022 4:13 PM CDT 04/01/2022 4:31 PM CDT us Markie Ryan MD LAB BLOOD ORDERABLES Edited R esult - Final NILSA RODRIGES [address] [facility] Department [place] [address] * (ABNORMAL) Comprehensive metabolic panel (04/01/2022 4:13 PM CDT) Sodium 141 135 - 145 mmol/L NILSA RODRIGES Comment:Testing performed by : [address], [place]., [address] Potassium, pl 4.6 3.3 - 4.9 mmol/L NILSA Comment:Testing performed by : [address], [place]., [address] Chloride 102 97 - 110 mmol/L NILSA Comment:Testing performed by : [address], [place]., [address] CO2 29 22 - 32 mmol/L NILSA Comment:Testing performed by : [address], [place]., [address] Anion gap 10 2 - 15 mmol/L NILSA Comment:Testing performed by : [address], [place]., [address] BUN 39(H) 8 - 25 mg/dL NILSA Comment:Testing performed by : [address], [place]., [address] Creatinine 2.00(H) 0.60 - 1.10 mg/dL NILSA Comment:Testing performed by : [address], [place]., [address] Glucose 324(H) 70 - 199 mg/dL NILSA [...] was last revised 2017. Testing performed by: [address] [address] Calcium 9.9 8.5 - 10.3 mg/dL NILSA Comment:Testing performed by : [address], [place]., [address] Bilirubin, total 0.2 0.1 - 1.2 mg/dL NILSA Comment:Testing performed by : [address] [place]., [address] Protein, pl 8.0 6.5 - 8.5 g/dL NILSA RODRIGES Comment:Testing performed by : [address] [address] Albumin 3.8 3.5 - 5.0 g/dL NILSA RODRIGES Comment:Testing performed by : [address] [address] Alk phos 137(H) 40 - 130 Units/L NILSA RODRIGES Comment:Testing performed by : [address] [address] ALT 16 7 - 45 Units/L NILSA RODRIGES Comment:Testing performed by : [address] [address] AST 16 10 - 45 Units/L NILSA RODRIGES Comment:Testing performed by : [address] [address] Blood 04/01/2022 4:13 PM CDT 04/01/2022 4:31 PM CDT us Markie Ryan MD LAB BLOOD ORDERABLES Final [facility]ult [facility] [address] [facility] Department [place] [address] * (ABNORMAL) CBC with auto differential (04/01/2022 4:13 PM CDT) Pathologist [facility] WBC 9.2 3.8 - 9.9 K/cumm NILSA RODRIGES Comment:Testing performed by : [address] [address] Hgb 9.3(L) 11.9 - 15.5 g/dL NILSA RODRIGES Comment:Testing performed by : [address] [address] Hct 29.8(L) 35.6 - 45.5 % NILSA RODRIGES Comment:Testing performed by : [address] [address] Plt 297 150 - 400 K/cumm NILSA RODRIGES Comment:Testing performed by : [address] [address] MPV 11.0 9.1 - 12.3 fL NILSA RODRIGES Comment:Testing performed by : [address] [address] RBC 3.14(L) 3.90 - 5.20 M/cumm NILSA RODRIGES Comment:Testing performed by : [address] [address] MCV 94.9 81.3 - 96.4 fL NILSA Comment:Testing performed by : [address], [address] MCH 29.6 27.1 - 33.3 pg NILSA Comment:Testing performed by : [address], [address] MCHC 31.2(L) 32.3 - 35.7 g/dL NILSA Comment:Testing performed by : [address], [address] RDW CV 15.3(H) 11.1 - 14.9 % NILSA Comment:Testing performed by : [address], [address] RDW SD 53.0(H) 35.7 - 48.1 fL NILSA Comment:Testing performed by : [address], [address] NRBC abs 0.00 0.00 - 0.01 K/cumm NILSA Comment:Testing performed by : [address] [address] Blood 04/01/2022 4:13 PM CDT 04/01/2022 4:31 PM CDT us Markie Ryan MD LAB BLOOD ORDERABLES Final Re sult NILSA RODRIGES [address] [facility] Department [place] [address] * (ABNORMAL) Iron profile w/ IBC (04/01/2022 4:13 PM CDT) [facility] Signature Iron 55 35 - 145 mcg/dL NILSA RODRIGES Comment:Testing performed by : [facility], [address] [place] [address]., [address] TIBC 237(L) 250 - 400 mcg/dL NILSA RODRIGES Comment:Testing performed by : [facility], [address] [place] [address]., [address] Transferrin saturation 23 20 - 50 % NILSA Comment:Testing performed by : [facility], [address] [place] [address]., [address] Blood 04/01/2022 4:13 PM CDT 04/01/2022 4:31 PM CDT us Markie Ryan MD LAB BLOOD ORDERABLES Final Re sult NILSA [address] [facility] Department [place] [address] documented in this encounter Visit Diagnoses Diagnosis [...] type documented in this encounter Care Teams Wet Process Miller Head Assistant Relationship Specialty Start Date End Date Cherelle Corcoran MD PCP - General Family Medicine 08/30/19 Mark Queen MD Consulting Physician Infectious Diseases 01/10/20 documented as of this encounter
--- OUTSIDE RECORDS SUMMARY | 2024-07-04 04:14 | XMS_ITS | Encounter Summary ---
Author Organization [facility] Address [address] [place] [address] Care Team Providers Care Liquor Clerk Name Role Phone Cherelle Corcoran MD Primary Care Pro vider Mark Queen MD Unavailable [phone] Reason for Visit * Reason Onset Date Comments Symptom Based Call 04/11/2022 Encounter Details Date Type Department Care Team ([facility] Contact Info) Description 04/11/2022 Telephone [facility] Primary Care [address] [address] [place] [address] Cherelle Corcoran MD [facility] [address] [place] [address] Symptom Based Call Social History [...] you attend chur ch or shinto services? 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 Recommend she starts physical therapy. Referral has been placed and authorized. * Telephone Encounter - Brook Sinclair - 04/11/2022 8:33 AM CDT Symptom Based Call Chief Complaint: Pain is worse, Difficulty walking Did you review 911/Red Flag List?Yes Duration: continual pain, seen office 04/01/22 Why was appointment not scheduled? Daughter did not want to schedule. Patient just seen 04/01/22 Caller's Callback #: [phone] Additional Comments: Patient is walking bent over, leans over her walker, difficulty standing, states it hurts to lift herself up, Increase pain in back. Looks like knees seem to be locking up and having trouble standing upright. Patient has not started physical therapy. Daughter would like to knowwhat else can be done? Patient's daughter wanted this encounter to be reviewed by patient's primarycare provider. Does message need to be routed? Yes-Action Needed documented in this encounter Plan of Treatment Upcoming Encounters Date Type Department Care Team (Latest Contact Info) Description 07/13/2024 9:00 AM STEEPING PRESS OPERATOR Hospital Encounter [facility] [address] [place] [address] Jaya Grier MD [address] [place] [address] 07/13/2024 9:00 AM STEEPING PRESS OPERATOR - 07/13/2024 9:30 AM STEEPING PRESS OPERATOR Surgery [facility] [address] [place] [address] Jaya Grier MD [address] [address] ESOPHAGOGASTRODUODENOSCOPY Scheduled Procedures Name Priority Associated Diagnoses Date/Ti me ESOPHAGOGASTRODUODENOSCOPY Anemia, unspecified type Gastritis without bleeding, unspecified chronicity, unspecified gastritis type 07/13/2024 9:00 AM STEEPING PRESS OPERATOR COLONOSCOPY Iron deficiency anemia due to chronic blood loss documented as of this encounter Visit Diagnoses Not on filedocumented in this encounter Care Teams Liquor Clerk Relationship Specialty Start Date End Date Cherelle Corcoran MD PCP - General Family Medicine 08/30/19 Mark Queen MD Consulting Physician Infectious Diseases 01/10/20 documented as of this encounter
--- OUTSIDE RECORDS SUMMARY | 2024-07-04 04:14 | XMS_ITS | Encounter Summary ---
Author Organization [facility] Address [address] [place] [address] Phone Care Team Providers Care Tanning Salon Attendant Name Role Phone Cherelle Corcoran MD Primary Care Pro vider Mark Queen MD Unavailable [phone] Reason for Visit * Reason Comments Weakness - Generalized * Auth/Cert Specialty Diagnoses / Procedures Referred By Maryse t Referred To Contact Referral ID Status Reason Start Date Expiration Date Visits Re quested Visits Authorized [id number] 1 1 Encounter Details Date Type Department Care Team (Late st Contact Info) Description 01/14/2022 12:30 PM CDT Home Care Visit [facility] [address] [place] [address] Hanny Cruz, ANG PT HOME VISIT Social [...] you attend chur ch or faith services? 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 Gender Identity Female 02/08/2020 6:39 PM CDT Sexual Orientation Not on file documented as of this encounter Last Filed Vital Signs Vital Sign Reading Time Taken Comments Blood Pressure 158/70 01/14/2022 12:56 PM CDT Pulse 78 01/14/2022 12:56 PM CDT Temperature 35.7 ??C (96.2 ??F) 01/14/2022 12:56 PM C DT Respiratory Rate 18 01/14/2022 12:56 PM CDT Oxygen Saturation 99% 01/14/2022 12:56 PM CDT Inhaled Oxygen Concentration - - Weight - - Height - - Body Mass Index - - documented in this encounter Miscellaneous Notes * Home Health Plan for Next Visit - Hanny Cruz PTA - 01/14/2022 1:30 PM CDT Reason for today's visit to progress with HEP, balance Discuss plan of care pt and son Discharge planning when appropriate Plan for next visit to work on in and out of the home has 2 small steps saw M.D this am and med changes noted to start Vitamin D Complex start Ketoconazole 2 % cream apply topically 2 times a day change atorvastatin 20 mg table to take one table by mouth daily furosemice 40 mg table take one table by mouth 2 times a day dc benzonatate and guaifensesin ER documented in this encounter Plan of Treatment Upcoming Encounters Date Type Department Care Team (Latest Contact Info) Description 07/13/2024 9:00 AM BOAT WRAPPER Hospital Encounter [facility] [address] [place] [address] Jaya Grier MD [facility] [address] [address] 07/13/2024 9:00 AM BOAT WRAPPER - 07/13/2024 9:30 AM BOAT WRAPPER Surgery [facility] [address] [place] [address] Jaya Grier MD [address] [facility] [address] [place] [id number] ESOPHAGOGASTRODUODENOSCOPY Scheduled Procedures Name Priority Associated Diagnoses Date/Ti me ESOPHAGOGASTRODUODENOSCOPY Anemia, unspecified type Gastritis without bleeding, unspecified chronicity, unspecified gastritis type 07/13/2024 9:00 AM BOAT WRAPPER COLONOSCOPY Iron deficiency anemia due to chronic [...] home health visit Disciplines: SN, PT, OT, BIOINFORMATICS TEAM MEMBER, ELEMENTARY TEACHER, Skilled Disciplines Monitor patient's vital signs every [...] wounds 01/09/2022 Active 1 goal linked to scheduled/docbrody nted intervention 2 goal interventions scheduled/maryjo carr in this visit Goals Goal Associated Problem Outcome Goal Met? Visit Notes Patient receives care at the most appropriate care setting Description: Patient receives care at the most appropriate care setting. Homebound Status No Measure vital signs during every home health visit during episode of care Description: Home contact acid plant operator to measure vital signs during every home [...] concerns Goal:Demonstrate use of safety precautions Completed to have supervision with gait activities Assess safety Description: Assess patient safety Problem:Safety concerns Goal:Demonstrate use of safety precautions Completed Instruct on the prevention of deep vein thrombosis Description: Instruct patient/caregiver on signs and symptoms, preventative measures related to DVT, and provide ongoing home support based on patient needs Problem:DVT Prevention and Management Goal:Demonstrate knowledge of anticoagulant therapy Completed instructed pt on anklepumping to perform 10 reps every 2 hrs Instruct on pain management techniques Description: Instruct in pharmacologic and nonpharmacologic pain management techniques. Problem:Pain Goal:Report that pain has been reduced or controlled Completed instructed to take acetaminophen as prescribed and if needed to use lidoderm patches to lower back Home Exercise Program (HEP) Description: Instruct patient/caregiver and perform HEP. Problem:PT Impaired Functional Mobility Completed while pt was supine progressed from 10-15 reps including anklepumping, quad sets, heelsldies, hip abd/add and quad to engage quad before completing, glut sets and saq holding 3 seconds cues to count out loud as performing exercises no standing exercises today as pt was fatigued Gait/Stair Training Description: Instruct patient/caregiver and perform gait/stair training. Problem:PT Impaired Functional Mobility Completed gait with wheeled walker in the home over level surfaces with cues to improve posture and to keep all 4 wheels of walker on floor at all times pt tolerated approx 50 ft exhibits decreased heel toe gait and hip flexion with knee flexion some flexion noted at hips Bed Mobility/Transfer Training Description: Instruct patient/caregiver and perform bed mobility/transfer training. Problem:PT Impaired Functional Mobility Completed instructed pt on supine to from sit transfers to sit on edge of bed and lift legs into bed vs crawling into bed pt does need min asst to lift legs into bed sit to from stand depending on ues to push herself up Balance Training/Activities Description: Instruct patient/caregiver and perform balance training activities. Problem:PT Impaired Functional Mobility Completed instructed pt on balance activities including static stance with feet slightly apart arms down to side and CGA of this CREATIVE SERVICES PRODUCER cues to engage abd and buttocks toimprove core strength pt does sway but had no lob staggered stance each leg for 30 seconds with arms down to side pt slightly more unsteady CGA to min asst to prevent lob pt instructed not to perform at this time without therapy gait balance with wheeled walker 4-/5 Therapeutic [...] Scheduled documented in this encounter Care Teams Tanning Salon Attendant Relationship Specialty Start Date End Date Cherelle Corcoran MD PCP - General Family Medicine 08/30/19 Mark Queen MD Consulting Physician Infectious Diseases 01/10/20 documented as of this encounter
--- OUTSIDE RECORDS SUMMARY | 2024-07-04 04:14 | XMS_ITS | Encounter Summary ---
Author Organization [facility] Address [address] [place] [address] Phone Care Team Providers Care Clinical Unit Coordinator Name Role Phone Cherelle Corcoran MD Primary Care Pro vider Mark Queen MD Unavailable [phone] Encounter Details Date Type Department Care Team (Late st Contact Info) Description 04/01/2022 Telephone [facility] Endocrinology Metabolism and Lipid [address] [place] [address] [place] [address] Yoly Herrera RN Social History [...] How often do you attend chur or christian services? 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 History: 71 y old female with PMH of Type II DM, HTN,HDL , mood disorder iseen by Dr Kauffman along with her daughter on 03/03/2022 for follow up of her Diabetes. The daughter brought in her reader for downloading Diabetic Medications: Trulicity 1.5 mg weekly Lantus 30 units daily Humalog 10 units with meals along with sliding scale 1:50>150 Next appointment: 06/17/2022 Readings: Plan: - Dr Kauffman reviewed the patient's glucose readings and made the following recommendations: - Increase Lantus to 34 units daily - Increase Humalog to 12 units, and take insulin before eating - Continue to sliding scale - Bring in reader in 3-4 weeks - Follow- sooner with any additional questions, concerns or problems documented in this encounter Plan of Treatment Upcoming Encounters Date Type Department Care Team (Latest Contact Info) Description 07/13/2024 9:00 AM CIRCUIT CLERK Hospital Encounter [facility] [address] [place] [address] Jaya Grier MD [address] [place] [address] DR [address] [place] [id number] 07/13/2024 9:00 AM CIRCUIT CLERK - 07/13/2024 9:30 AM CIRCUIT CLERK Surgery [facility] [address] [place] [address] Jaya Grier MD [facility] [address] [place] [address] ESOPHAGOGASTRODUODENOSCOPY Scheduled Procedures Name Priority Associated Diagnoses Date/Ti me ESOPHAGOGASTRODUODENOSCOPY Anemia, unspecified type Gastritis without bleeding, unspecified chronicity, unspecified gastritis type 07/13/2024 9:00 AM CIRCUIT CLERK COLONOSCOPY Iron deficiency anemia due to chronic blood loss documented as of this encounter Visit Diagnoses Not on filedocumented in this encounter Care Teams Clinical Unit Coordinator Relationship Specialty Start Date End Date Cherelle Corcoran MD PCP - General Family Medicine 08/30/19 Mark Queen MD Consulting Physician Infectious Diseases 01/10/20 documented as of this encounter
--- OUTSIDE RECORDS SUMMARY | 2024-07-04 04:14 | XMS_ITS | Encounter Summary ---
Author Organization [facility] Home Care [facility] es Address [address] [place] [address] Phone Care Team Providers Care Defence Force Senior Officer Name Role Phone Cherelle Corcoran MD Primary Care Pro vider Mark Queen MD Unavailable [phone]- [phone] Reason for Visit * Auth/Cert Specialty Diagnoses / Procedures Referred By Maryse t Referred To Contact Referral ID Status Reason Start Date Expiration Date Visits Re quested Visits Authorized [id number] 1 1 Encounter Details Date Type Department Care Team (Late st Contact Info) Description 01/31/2022 3:00 PM CDT Home Care Visit [facility] Home Health [address] [place] [address] Leslie Bahena, RN SN OASIS DISCHARGE Social History Tobacco Use [...] you attend chur ch or confucianism services? Never 09/10/2021 Do you belong to [...] on file Legal Sex Female 9:03 AM CIVIL ENGINEERING TECHNICIAN Gender Identity Female 02/08/2020 6:39 PM CDT Sexual Orientation Not on file documented as of this encounter Last Filed Vital Signs Vital Sign Reading Time Taken Comments Blood Pressure 128/76 01/31/2022 3:10 PM CDT Pulse 78 01/31/2022 3:10 PM CDT Temperature 36.2 ??C (97.2 ??F) 01/31/2022 3:10 PM CD T Respiratory Rate 20 01/31/2022 3:10 PM CDT Oxygen Saturation 96% 01/31/2022 3:10 PM CDT Inhaled Oxygen Concentration - - Weight - - Height - - Body Mass Index - - documented in this encounter Plan of Treatment Upcoming Encounters Date Type Department Care Team (Latest Contact Info) Description 07/13/2024 9:00 AM CIVIL ENGINEERING TECHNICIAN Hospital Encounter [facility] [address] [place] [address] Jaya Grier MD [address] [place] [address] [address] GAINES [address] [place] [address] 07/13/2024 9:00 AM CIVIL ENGINEERING TECHNICIAN - 07/13/2024 9:30 AM CIVIL ENGINEERING TECHNICIAN Surgery [facility] [address] [place] [address] Jaya Grier MD [facility] [address] GAINES [address] [place] [address] ESOPHAGOGASTRODUODENOSCOPY Scheduled Procedures Name Priority Associated Diagnoses Date/Ti sd ESOPHAGOGASTRODUODENOSCOPY Anemia, unspecified type Gastritis without bleeding, unspecified chronicity, unspecified gastritis type 07/13/2024 9:00 AM CIVIL ENGINEERING TECHNICIAN COLONOSCOPY Iron deficiency anemia due to chronic blood loss documented as of this encounter Visit Diagnoses Not on filedocumented in this encounter Home Health Visit - Care Plan Visit Details Visit Type -SN OASIS Dischar ge Discipline -Mcfp Problems Problem Description Start Date Status Goals Interventions Additional Referral Physician Orders Disciplines: All Disciplines Additional Referral Physician Orders 12/24/2021 Active 1 goal linked to scheduled/docume nted intervention 1 problem intervention scheduled/documen bruno in this visit Homebound Status Disciplines: Skilled Disciplines Patient's homebound status 12/25/2021 Active 1 goal linked to scheduled/docume nted intervention 1 goal intervention scheduled/documen bruno in this visit Medications Disciplines: Mcfp Management of home medications 12/25/2021 Active 1 goal linked to scheduled/docume nted intervention 4 goal interventions scheduled/documen bruno in this visit Monitor patient's vital signs every home health visit Disciplines: SN, PT, OT, LASER OPERATOR, BLACK TOPPER, Skilled Disciplines Monitor patient's vital signs every home health visit. 12/25/2021 Active 1 goal linked to scheduled/docume nted intervention 2 goal interventions scheduled/documen bruno in this visit Multidisciplina ry Case Conference Disciplines: Skilled Disciplines Concurrently discusses plan of treatment and coordinate patient centered care 12/25/2021 Active 1 goal linked to scheduled/docume nted intervention 1 goal intervention scheduled/documen bruno in this visit Infection Prevention Disciplines: Skilled Disciplines Infection Prevention 12/25/2021 Active 1 goal linked to scheduled/docume nted intervention 3 goal interventions scheduled/documen bruno in this visit Safety concerns [...] this visit Disease Management - Diabetes Disciplines: Mcfp Management of diabetes symptoms 12/25/2021 Active 1 goal linked to scheduled/docume nted intervention 3 goal interventions scheduled/documen bruno in this visit Wound Care Disciplines: Core Disciplines Wound care needed 01/09/2022 Active 1 goal linked to scheduled/docume nted intervention 2 goal interventions scheduled/documen bruno in this visit Wound [...] Associated Problem Outcome Goal Met? Visit Notes Additional Referral Physician Orders Description: Additional Referral Orders from Physician to be sent to plan of care and signed. Additional Referral Physician Orders Completed Yes Patient discharged from home care service this date - 01/31/22 Patient receives care at the most appropriate care setting Description: Patient receives care at the most appropriate care setting. Homebound Status Completed Yes Patient discharged from home care service this date - 01/31/22 Understand and follow medication therapy Description: Patient/caregiver will understand and follow prescribed medication therapy as evidence by having up to date medication list in home & ability to verbalize purpose, schedule, and side effects by the end of the episode of care Medications Completed Yes Patient discharged from home care service this date - 01/31/22 Measure vital signs during every home health visit during episode of care Description: Home bakery machine mechanic supervisor to measure vital signs during every home health visit during episode of care. Monitor patient's vital signs every home health visit Completed Yes Patient discharged from home care service this date - 01/31/22 Care team will coordinate care Description: Care team will coordinate care centered on patient needs throughout the episode of care. Multidisciplinary Case Conference Completed Yes Patient discharged from home care service this date - 01/31/22 Verbalize signs of infection Description: Patient/caregiver will demonstrate knowledge of infection prevention strategies by verbalizing signs and symptoms of infection. Infection Prevention Completed Yes Patient discharged from home care service this date - 01/31/22 Demonstrate use of safety precautions Description: Patient/caregiver maintains safe home environment as evidenced by remaining free from injury and demonstrates use of safety precautions. Safety concerns Completed Yes Patient discharged from home care service this date - 01/31/22 Demonstrate knowledge of anticoagulant therapy Description: Patient/caregiver will verbalize understanding of anticoagulation therapy including adverse signs and symptoms to notify physician or contact EMS. DVT Prevention and Management Completed Yes Patient discharged from home care service this date - 01/31/22 Report that pain has been reduced or controlled Description: Patient/caregiver/family will verbalize satisfaction with the patients level of pain and symptom control. Pain Completed Yes Patient discharged from home care service this date - 01/31/22 Verbalize prevention of Diabetic complications Description: Patient/caregiver to demonstrate knowledge of diabetes as evidenced by ability to verbalize proper foot care and signs and symptoms of infection and skin breakdown to report to physician. Disease Management - Diabetes Completed Yes Patient discharged from home care service this date - 01/31/22 Progression towards healing Description: Wound show progression towards healing by 01/24/22 Wound Care Completed Yes Patient discharged from home care service this date - 01/31/22 Progression towards healing Description: #5 Left Heel Wound show progression towards healing by 01/24/22 Wound Care Completed Yes Patient discharged from home care service this date - 01/31/22 Knowledgeable of infection Description: Patient will remain free of infection and able to recognize of signs of infection by 01/24/22. Wound Risk of Infection Completed Yes Patient discharged from home care service this date - 01/31/22 Interventions Intervention Associated Problem/Goal Status Variance Visit Notes Additional Referral Physician Orders Description: Date/Time: 12/24/2111/10/1041 am Name and Credentials of Provider giving order: Dr Corcoran via [employer] chat Physician Orders: delayed start of care 12/25/21 Verbal order read back to: Dr Corcoran By (Name/Date/Credentials): Tamela Swanson RN Problem:Additional Referral Physician Orders Completed Patient discharged from home care service this date - 01/31/22 Homebound Status Description: Patient is homebound due to recent hospitalization for DVT, unsteady gait, poor endurance. Requires assist of walker and 1 person to safely leave the home Problem:Homebound Status Goal:Patient receives care at the most appropriate care setting Completed Patient discharged from home care service this date - 01/31/22 Instruct medications Description: Instruct patient/caregiver in medication administration, purpose, dosages, preparation, scheduling, side effects, food/drug interactions, storage, drug allergies, and potential complications. Problem:Medications Goal:Understand and follow medication therapy Completed Patient discharged from home care service this date - 01/31/22 Instruct on drug interactions Description: Perform drug interaction screening and instruct patient on severe drug interactions. Notify MD of any severe interactions Problem:Medications Goal:Understand and follow medication therapy Completed Patient discharged from home care service this date - 01/31/22 Instruct on high risk medications Description: Instruct patient/caregiver on high-risk/high-alert medications, including: anti-convulsant, anti-retroviral, anti-coagulant, chemotherapeutic, hypo-glycemic, immunosuppressant, insulin, and opioid. Problem:Medications Goal:Understand and follow medication therapy Completed Patient discharged from home care service this - 01/31/22 Instruct on medication side effects Description: Instruct patient/caregiver to monitor for side effects and adverse reactions Problem:Medications Goal:Understand and follow medication therapy Completed Patient discharged from home care service this date - 01/31/22 Monitor Vital Signs Description: Monitor blood pressure, pulse, oxygen saturation, respirations Problem:Monitor patient's vital signs every home health visit Goal:Measure vital signs during every home health visit during episode of care Completed Patient discharged from home care service this - 01/31/22 Supervising Discipline notification of abnormal vital signs Description: Use standardized clinical guidelines of abnormal vitals signs to report to supervising discipline. (SBP 90-160, DBP 40-90, O2Sat 88-100%, temporal temp less than 101.5) Problem:Monitor patient's vital signs every home health visit Goal:Measure vital signs during every home health visit during episode of care Completed Patient discharged from home care service this - 01/31/22 Case Conference Description: Care team discuss plan of treatment on a continual basis to provide multidisciplinary team approach to care Problem:Multidiscipli gracie Case Conference Goal:Care team will coordinate care Completed Patient discharged from home care service this - 01/31/22 Aspects of Care Description: Instruct patient/caregiver on universal precautions and home infection control measures Problem:Infection Prevention Goal:Verbalize signs of infection Completed Patient discharged from home care service this - 01/31/22 Educate Patient on Infection Prevention Description: Instruct patient on signs and symptoms of infection IE: fever, odor, change in color, increased amount of drainage, purulent drainage, warmth. Problem:Infection Prevention Goal:Verbalize signs of infection Completed Patient discharged from home care service this - 01/31/22 Educate Family on Infection Prevention Description: Instructed family on signs and symptoms of infection IE: fever, odor, change in color, increased amount of drainage, purulent drainage, warmth. Problem:Infection Prevention Goal:Verbalize signs of infection Completed Patient discharged from home care service this - 01/31/22 Instruct Fall Prevention Description: Instruct patient/caregiver in methods to prevent falls Problem:Safety concerns Goal:Demonstrate use of safety precautions Completed Patient discharged from home care service this - 01/31/22 Assess safety Description: Assess patient safety Problem:Safety concerns Goal:Demonstrate use of safety precautions Completed Patient discharged from home care service this 01/31/22 Instruct on the prevention of deep vein thrombosis Description: Instruct patient/caregiver on signs and symptoms, preventative measures related to DVT, and provide ongoing home support based on patient needs Problem:DVT Prevention and Management Goal:Demonstrate knowledge of anticoagulant therapy Completed Patient discharged from home care service this date - 01/31/22 Instruct on pain management techniques Description: Instruct in pharmacologic and nonpharmacologic pain management techniques. Problem:Pain Goal:Report that pain has been reduced or controlled Completed Patient discharged from home care service this date - 01/31/22 Assess Diabetes: Monitor for the presence of skin lesions on the lower extremity Description: Monitor for the presence of skin lesions on the lower extremity. Problem:Disease Management - Diabetes Goal:Verbalize prevention of Diabetic complications Completed Patient discharged from home care service this date - 01/31/22 Assess Diabetes: Knowledge Deficit Description: Assess for knowledge deficit of diabetes management Problem:Disease Management - Diabetes Goal:Verbalize prevention of Diabetic complications Completed Patient discharged from home care service this date - 01/31/22 Educate on foot care Description: Educate patient/caregiver on proper foot care. Problem:Disease Management - Diabetes Goal:Verbalize prevention of Diabetic complications Completed Patient discharged from home care service this date - 01/31/22 Skilled assessment wound Description: Full wound assessment including measurement weekly. Wound assessment each visit Problem:Wound Care Goal:Progression towards healing Completed Patient discharged from home care service this date - 01/31/22 Wound Photo Description: Take and transmit wound photo. Problem:Wound Care Goal:Progression towards healing Completed Patient discharged from home care service this date - 01/31/22 Perform dressing change Description: Perform dressing change: Site #5 left heel , Skilled Nurse, Caregiver or Patient to leave open to air and float heels. Problem:Wound Care Goal:Progression towards healing Completed Patient discharged from home care service this date - 01/31/22 Instruct Hand Washing Description: Instruct patient/caregiver on hand wash technique Problem:Wound Risk of Infection Goal:Knowledgeable of infection Completed Patient discharged from home care service this date - 01/31/22 Instruct on the signs and symptoms of infection Description: Assess wound with each visit for s/sx of infection Problem:Wound Risk of Infection Goal:Knowledgeable of infection Completed Patient discharged from home care service this 01/31/22 documented in this encounter Care Teams Defence [employer] Senior Officer Relationship Specialty Start Date End Date Cherelle Corcoran MD PCP - General Family Medicine 08/30/19 Mark Queen MD Consulting Physician Infectious Diseases 01/10/20 documented as of this encounter
--- OUTSIDE RECORDS SUMMARY | 2024-07-04 04:14 | XMS_ITS | Encounter Summary ---
Author Organization [facility] Home Care Servic es Address [address] [place] [address] Phone Care Team Providers Care Dental Assistant Name Role Phone Cherelle Corcoran MD Primary Care Pro vider Mark Queen MD Unavailable [phone]- [phone] Reason for Visit * Auth/Cert Specialty Diagnoses / Procedures Referred By Maryse t Referred To Contact Referral ID Status Reason Start Date Expiration Date Visits Re quested Visits Authorized [id number] 1 1 Encounter Details Date Type Department Care Team (Late st Contact Info) Description 01/09/2022 12:00 PM CDT Home Care Visit [facility] [address] [place] [address] Leslie Baehna, RN SN HOME VISIT Social History Tobacco [...] you attend chur ch or moravian services? Never 09/10/2021 Do you belong to [...] slept in a retirement (including now)? No 09/10/2021 Comments No Sex and Gender Information Value Date Recorded Sex Assigned at Not on file Legal Sex Female 9:03 AM TEAM FACILITATOR Gender Identity Female 02/08/2020 6:39 PM CDT Sexual Orientation Not on file documented as of this encounter Last Filed Vital Signs Vital Sign Reading Time Taken Comments Blood Pressure 128/64 01/09/2022 12:20 PM CDT Pulse 73 01/09/2022 12:20 PM CDT Temperature 36.3 ??C (97.3 ??F) 01/09/2022 12:20 PM C DT Respiratory Rate 18 01/09/2022 12:20 PM CDT Oxygen Saturation 97% 01/09/2022 12:20 PM CDT Inhaled Oxygen Concentration - - Weight - - Height - - Body Mass Index - - documented in this encounter Miscellaneous Notes * Home Health Visit Narrative - Leslie Bahena, RN - 01/09/2022 12:17 PM CDT Assessment of pressure area to left heel. Instructed patient to float heels, and when in bed or seated, elevate legs to reduce swelling. Patient verbalized understanding but will require follow up. No caregivers in the home at time of visit. documented in this encounter Plan of Treatment Upcoming Encounters Date Type Department Care Team (Latest Contact Info) Description 07/13/2024 9:00 AM TEAM FACILITATOR Hospital Encounter [facility] [address] [place] [address] aJya Grier MD [address] [facility] [address] GAINES [address] [place] [address] 07/13/2024 9:00 AM TEAM FACILITATOR - 07/13/2024 9:30 AM TEAM FACILITATOR Surgery [facility] [address] [place] [address] Jaya Grier MD [address] [facility] [address] [place] [address] ESOPHAGOGASTRODUODENOSCOPY Scheduled Procedures Name Priority Associated Diagnoses Date/Ti me ESOPHAGOGASTRODUODENOSCOPY Anemia, unspecified type Gastritis without bleeding, unspecified chronicity, unspecified gastritis type 07/13/2024 9:00 AM TEAM FACILITATOR COLONOSCOPY Iron deficiency anemia due to chronic blood loss documented as of this encounter Visit Diagnoses Not on filedocumented in this encounter Home Health Visit - Care Plan Visit Details Visit Type -SN Home Visit Discipline -Prison Problems Problem Description Start Date Status Goals Interventions Homebound Status Disciplines: Skilled Disciplines Patient's homebound status 12/25/2021 Active 1 goal linked to scheduled/docume nted intervention 1 goal intervention scheduled/documen bruno in this visit Monitor patient's vital signs every home health visit Disciplines: SN, PT, OT, DATA PROCESSING SYSTEMS CONSULTANT, TECHNOLOGY SUPPORT ANALYST, Skilled Disciplines Monitor patient's vital signs every [...] this visit Disease Management - Diabetes Disciplines: Prison Management of diabetes symptoms 12/25/2021 Active 1 [...] visit during episode of care Description: Home tool crib clerk to measure vital signs during every home [...] pain has been reduced or controlled Completed Educate on foot care Description: Educate patient/caregiver on proper foot care. Problem:Disease Management - Diabetes Goal:Verbalize prevention of Diabetic complications Completed Skilled assessment wound Description: Full wound assessment [...] Scheduled documented in this encounter Care Teams Dental Assistant Relationship Specialty Start Date End Date Cherelle Corcoran MD PCP - General Family Medicine 08/30/19 Mark Queen MD Consulting Physician Infectious Diseases 01/10/20 documented as of this encounter
--- OUTSIDE RECORDS SUMMARY | 2024-07-04 04:14 | XMS_ITS | Encounter Summary ---
Author Organization [facility] Address [address] [facility] [address] [place] [address] Care Team Providers Care Bonsai Tender Name Role Phone Cherelle Corcoran MD Primary Care Pro vider Mark Queen MD Unavailable [phone] Reason for Visit * Reason Onset Date Comments Medication Request 04/02/2022 Encounter Details Date Type Department Care Team ([facility] st Contact Info) Description 04/02/2022 Telephone [facility] Primary Care [address] [facility] [address] [place] [address] Cherelle Corcoran MD [facility] [facility] [address] [place] [address] Medication Request Social History Tobacco [...] on file Legal Sex Female 9:03 AM TAMPING MACHINE OPERATOR Gender Identity Female 02/08/2020 6:39 PM CDT Sexual Orientation Not on file documented as of this encounter Ordered Prescriptions Prescription Sig Dispense Quantity Refills Last Filled Start Date End Date insulin lispro (HumaLOG, ADMELOG) 100 unit/mL pen for injection Inject 12 Units under the skin 3 (three) times a day with meals 33 mL 1 04/02/2022 10/06/2022 documented in this encounter Miscellaneous Notes * Telephone Encounter - Brook Sinclair - 04/02/2022 12:38 PM CDT Medical Question/Miscellaneous Caller???s Concern: Patient's daughter, Areli, calls to report patient saw Dr Kauffman, her endcronologist, and her medications have been adjusted as following: Increased Lantus to 34 units daily and Humalog to 12 units as her base. She continues on a sliding scale. Caller???s Call back #: [phone] Does message need to be routed?Yes-Action Needed documented in this encounter Plan of Treatment Upcoming Encounters Date Type Department Care Team (Latest Contact Info) Description 07/13/2024 9:00 AM TAMPING MACHINE OPERATOR Hospital Encounter [facility] [address] [place] [address] Jaya Grier MD [address] [place] [address] [address] GAINES [address] [place] [address] 07/13/2024 9:00 AM TAMPING MACHINE OPERATOR - 07/13/2024 9:30 AM TAMPING MACHINE OPERATOR Surgery [facility] [address] [place] [address] Jaya Grier MD [facility] [facility] [address] GAIN[address] [place] [id number] ESOPHAGOGASTRODUODENOSCOPY Scheduled Procedures Name Priority Associated Diagnoses Date/Ti me ESOPHAGOGASTRODUODENOSCOPY Anemia, unspecified type Gastritis without bleeding, unspecified chronicity, unspecified gastritis type 07/13/2024 9:00 AM TAMPING MACHINE OPERATOR COLONOSCOPY Iron deficiency anemia due to chronic blood loss documented as of this encounter Visit Diagnoses Not on filedocumented in this encounter Discontinued Medications Medication Sig Discontinue Reason Start Date End Da te insulin lispro (HumaLOG, ADMELOG) 100 unit/mL pen for injection Inject 0-10 Units under the skin 3 (three) times a day with meals Reorder 01/31/2022 04/02/2022 documented as of this encounter Care Teams Bonsai Tender Relationship Specialty Start Date End Date Cherelle Corcoran MD PCP - General Family Medicine 08/30/19 Mark Queen MD Consulting Physician Infectious Diseases 01/10/20 documented as of this encounter
--- OUTSIDE RECORDS SUMMARY | 2024-07-04 04:14 | XMS_ITS | Encounter Summary ---
Author Organization [facility] Home Care Servic es Address [address] [place] [address] Phone Care Team Providers Care Well Control Instructor Name Role Phone Cherelle Corcoran MD Primary Care Pro vider Mark Queen MD Unavailable [phone] Reason for Visit * Auth/Cert Specialty Diagnoses / Procedures Referred By Maryse t Referred To Contact Referral ID Status Reason Start Date Expiration Date Visits Re quested Visits Authorized [id number] 1 1 Encounter Details Date Type Department Care Team (Late st Contact Info) Description 01/22/2022 9:00 AM CDT Home Care Visit [facility] [address] [address] [address] [place] [address] Yamilka Hoang, PT PT REASSESSMENT Social History [...] on file Legal Sex Female 9:03 AM HEAD UP OPERATOR HELPER Gender Identity Female 02/08/2020 6:39 PM CDT Sexual Orientation Not on file documented as of this encounter Last Filed Vital Signs Vital Sign Reading Time Taken Comments Blood Pressure 156/62 01/22/2022 9:28 AM CDT Pulse 68 01/22/2022 9:28 AM CDT Temperature 35.6 ??C (96 ??F) 01/22/2022 9:28 AM CDT Respiratory Rate 18 01/22/2022 9:28 AM CDT Oxygen Saturation 97% 01/22/2022 9:28 AM CDT Inhaled Oxygen Concentration - - Weight - - Height - - Body Mass Index - - documented in this encounter Miscellaneous Notes * Home Health Visit Narrative - Yamilka Hoang, PT - 01/22/2022 9:15 AM CDT Pt's other daughter staying with her today while dtr Areli at work. Pt has 12/01 assist from family. Dtr reports pt has been performing HEP with their assist. Pt able to negotiate 2 steps to exit home using walker w cg assist, pt frequently goes to stay with other family members while her dtr works. Pt does req assist with supine > sit and PT discussed a bed rail with pt's dtr, dtr verb understanding and will discuss w Areli. Unstageable ulcer to L heel remains intact, photo uploaded. PT instructed pt and cg on floating heels when pt in bed, they verb understanding. At this time pt has met PT goals, family will continue to assist pt w performing HEP. Pt and cg are agreeable to DC at this time. Case communication to care team. documented in this encounter Plan of Treatment Upcoming Encounters Date Type Department Care Team (Latest Contact Info) Description 07/13/2024 9:00 AM HEAD UP OPERATOR HELPER Hospital Encounter [facility] [address] [place] [address] Jaya Grier MD [address] [address] 07/13/2024 9:00 AM HEAD UP OPERATOR HELPER - 07/13/2024 9:30 AM HEAD UP OPERATOR HELPER Surgery [facility] [address] [place] [address] Jaya Grier MD [address] [facility] [address] ESOPHAGOGASTRODUODENOSCOPY Scheduled Procedures Name Priority Associated Diagnoses Date/Ti me ESOPHAGOGASTRODUODENOSCOPY Anemia, unspecified type Gastritis without bleeding, unspecified chronicity, unspecified gastritis type 07/13/2024 9:00 AM HEAD UP OPERATOR HELPER COLONOSCOPY Iron deficiency anemia due to [...] home health visit Disciplines: SN, PT, OT, STEEL ESTIMATOR, STUDY DIRECTOR, Skilled Disciplines Monitor patient's vital signs every [...] Impaired functional mobility 12/31/2021 Resolved on 01/22/2022 - 5 problem interventions scheduled/docume nted in this visit Wound Care Disciplines: Core Disciplines Wound care needed 01/09/2022 Active 1 goal linked to scheduled/docume nted intervention 2 goal interventions scheduled/docume nted in this visit Wound [...] visit during episode of care Description: Home calender operator to measure vital signs during every [...] pain has been reduced or controlled Scheduled Home Exercise Program (HEP) Description: Instruct patient/caregiver and perform HEP. Problem:PT Impaired Functional Mobility Completed PT instructed pt and cg on HEP and performed supine: Ankle pumps, Heel slide, SAQ, Hip abd/add, Glute set x 15 reps ea; SLR x 10 reps ea; Bridges x 5 reps. Pt req mild tactile cueing to perform correctly and cueing to avoid friction on L heel with performing Hip abd/add and heel slide, pt demonstrates good return. Pt tolerates all therex well. Pt and cg have been provided written instructions for HEP, instructed to continue HEP 2x/day, inc reps as tolerated, to maintain functional B LE strength; they verb understanding. Gait/Stair Training Description: Instruct patient/caregiver and perform gait/stair training. Problem:PT Impaired Functional Mobility Completed Gait in home using 2WW with SBA Pt demonstrates improved upright posture Rbigid decreased, dec step height and length bilat Pt demonstrates improved ability to make turns using w/walker with VC only. Pt negotiates 2 steps down from front door with CGA and assist to lift and lower 2WW. Pt has assist from family whenever leaving the home. Bed Mobility/Transfer Training Description: Instruct patient/caregiver and perform bed mobility/transfer training. Problem:PT Impaired Functional Mobility Completed Sit > Stand from recliner chair pt relies on mod assist B UE pushing up from arm rests Pt able to complete w/o assist however does req extra time w sit > stand. VC to reach back w B UE to arm rests as she sits. Sit > Supine Pt able to scoot backward onto elevated surface mattress and scoot lateral toward HOB with VC then able to lift B LE onto bed w/o assist. Pt does req Min (A) for supine> sit. PT recommended a bed rail to improve pt's independence w bed transfers; pt's dtr verb agreement Balance Training/Activities Description: Instruct patient/caregiver and perform balance training activities. Problem:PT Impaired Functional Mobility Completed TUG: Trial 1 50.1s pt requiring extra time to complete first rep sit > stand Trial 2 40.2s Therapeutic Exercise Description: Perform therapeutic exercise, progressing as tolerated. Problem:PT Impaired Functional Mobility Completed See HEP comments Skilled assessment wound Description: Full wound assessment including measurement weekly. Wound assessment each visit Problem:Wound Care Goal:Progression towards healing Completed Wound Photo Description: Take and transmit wound photo. Problem:Wound Care Goal:Progression towards healing Completed Perform [...] Scheduled documented in this encounter Care Teams Well Control Instructor Relationship Specialty Start Date End Date Cherelle Corcoran MD PCP - General Family Medicine 08/30/19 Mark Queen MD Consulting Physician Infectious Diseases 01/10/20 documented as of this encounter
--- OUTSIDE RECORDS SUMMARY | 2024-07-04 04:14 | XMS_ITS | Encounter Summary ---
Author Organization [facility] Healthcare Address [address] [place] [address] Care Team Providers Care Case Finishing Machine Adjuster Name Role Phone Cherelle Corcoran MD Primary Care Pro vider Mark Queen MD Unavailable [phone] Encounter Details Date Type Department Care Team (Late st Contact Info) Description 01/14/2022 9:45 AM CDT Lab [facility] Building [address] [address] Hyperkalemia Social History Tobacco Use Types Packs/Day Years [...] on file Legal Sex Female 9:03 AM SHEET CUTTER Gender Identity Female 02/08/2020 6:39 PM CDT Sexual Orientation Not on file documented as of this encounter Plan of Treatment Upcoming Encounters Date Type Department Care Team (Latest Contact Info) Description 07/13/2024 9:00 AM SHEET CUTTER Hospital Encounter [facility] [address] [place] [address] Jaya Grier MD [address] [facility] [place] [address] 07/13/2024 9:00 AM SHEET CUTTER - 07/13/2024 9:30 AM SHEET CUTTER Surgery [facility] [address] [place] [address] Jaya Grier MD [address] [facility] [place] [address] ESOPHAGOGASTRODUODENOSCOPY Scheduled Procedures Name Priority Associated Diagnoses Date/Ti me ESOPHAGOGASTRODUODENOSCOPY Anemia, unspecified type Gastritis without bleeding, unspecified chronicity, unspecified gastritis type 07/13/2024 9:00 AM SHEET CUTTER COLONOSCOPY Iron deficiency anemia due to chronic blood loss documented as of this encounter Procedures Procedure Name Priority Date/Time Associated Diagnosis Comments EGFR Routine 01/14/2022 9:57 AM CDT Hyperkalemia BASIC METABOLIC PANEL Routine 01/14/2022 9:57 AM CDT Hyperkalemia documented in this encounter Results * eGFR (01/14/2022 9:57 AM CDT) eGFR 30 mL/min/1. 73 m2 NILSA RODRIGES [...] was last reviewed 2021. Testing performed by: [address] [address] Blood 01/14/2022 9:57 AM CDT 01/14/2022 12:03 PM CDT Cherelle Corcoran MD LAB BLOOD ORDERAB LES Final Result NILSA [address] [facility] Department [place] [address] * (ABNORMAL) Basic metabolic panel (01/14/2022 9:57 AM CDT) Sodium 140 135 - 145 mmol/L NILSA RODRIGES Comment:Testing performed by : [address] [address] Potassium, pl 4.7 3.3 - 4.9 mmol/L NILSA RODRIGES Comment:Testing performed by : [address] [address] Chloride 101 97 - 110 mmol/L NILSA Comment:Testing performed by : [address] [address] CO2 28 22 - 32 mmol/L NILSA RODRIGES Comment:Testing performed by : [address] [address] Anion gap 11 2 - 15 mmol/L NILSA Comment:Testing performed by : [address] [address] BUN 46(H) 8 - 25 mg/dL NILSA Comment:Testing performed by : [address] [address] Creatinine 1.80(H) 0.60 - 1.10 mg/dL NILSA Comment:Testing performed by : [address] [address] Glucose 270(H) 70 - 199 mg/dL NILSA Comment: Interpretive [...] was last revised 2017. Testing performed by: [address] [address] Calcium 9.8 8.5 - 10.3 mg/dL NILSA Comment:Testing performed by : [address] [address] Blood 01/14/2022 9:57 AM CDT 01/14/2022 12:03 PM CDT us Cherelle Corcoran MD LAB BLOOD ORDERAB LES Final Result Performing Organization Address City/State/[facility] Co de Phone Number [facility] [address] [facility] Department of Laboratories [place], [place] [id number] documented in this encounter Visit Diagnoses Diagnosis Hyperkalemia Hyperpotassemia Anemia, unspecified type Gastritis without bleeding, unspecified chronicity, unspecified gastritis type documented in this encounter Care Teams Case Finishing Machine Adjuster Relationship Specialty Start Date End Date Cherelle Corcoran MD PCP - General Family Medicine 08/30/19 Mark Queen MD Consulting Physician Infectious Diseases 01/10/20 documented as of this encounter
--- OUTSIDE RECORDS SUMMARY | 2024-07-04 04:14 | XMS_ITS | Encounter Summary ---
Author Organization [facility] Address [address] [place] [address] Care Team Providers Care Development Representative Name Role Phone Cherelle Corcoran MD Primary Care Pro vider Mark Qeuen MD Unavailable [phone] Reason for Referral * Diagnostic Imaging (Routine) - Closed Specialty Diagnoses / Procedures Referred By Maryse lama Referred To Contact Diagnoses Left hip pain Procedures XR Hip Left 2+ Vw Cherelle Corcoran MD Phone: tel: fax: [facility] [address] [place] [address] Referral ID Status Reason Start Date Expiration Date Visits Re quested Visits Authorized [id number] Closed 01/14/2022 02/13/2023 1 1 Reason for Visit * Reason Comments rehab follow up Encounter Details Date Type Department Care Team ([facility] st Contact Info) Description 01/14/2022 8:15 AM CDT Office Visit [facility] Primary Care [facility] [address] [address] Cherelle Corcoran MD [address] [place] [id number] Pressure injury of left heel, stage 1 (Primary Dx); Pressure injury of buttock, stage 1, unspecified laterality; Left hip pain; Hyperkalemia; Type 2 diabetes mellitus with diabetic neuropathy, with long-term current use of insulin (CMS/HCC) (HCC); Other diabetic neurological complication associated with type 2 diabetes mellitus (HCC); Hypertension associated with diabetes (HCC); Hyperlipidemia associated with type 2 diabetes mellitus (HCC); Stage 3b chronic kidney disease (HCC); Left leg DVT (CMS/HCC) (HCC); Schizoaffective disorder, bipolar type (CMS/HCC) (HCC); Late onset Alzheimer's dementia without behavioral disturbance (HCC); Pulmonary nodule Social History Tobacco Use Types Packs/Day Years [...] on file Legal Sex Female 9:03 AM LINOTYPER Gender Identity Female 02/08/2020 6:39 PM CDT Sexual Orientation Not on file documented as of this encounter Last Filed Vital Signs Vital Sign Reading Time Taken Comments Blood Pressure 118/66 01/14/2022 8:41 AM CDT Pulse 75 01/14/2022 8:41 AM CDT Temperature 36.6 ??C (97.9 ??F) 01/14/2022 8:41 AM CD T Respiratory Rate 18 01/14/2022 8:41 AM CDT Oxygen Saturation 98% 01/14/2022 8:41 AM CDT Inhaled Oxygen Concentration - - Weight - - Height 157.5 cm (5' 2 ) 01/14/2022 8:41 AM CDT Body Mass Index - - documented in this encounter Ordered Prescriptions Prescription Sig Dispense Quantity Refills Last Filled Start Date End Date ketoconazole (NIZORAL) 2 % creamIndications:P ressure injury of buttock, stage 1, unspecified laterality Apply topically 2 (two) times a day 30 g 01/14/2022 3 documented in this encounter Progress Notes * Cherelle Corcoran MD - 01/14/2022 8:15 AM CDT Images from the original note were not included. Assessment/Plan: Assessment/Plan Diagnoses and all orders for this visit: Pressure injury of left heel, stage 1 (Primary) Comments: Stressed importance of keeping pressure off Pressure injury of buttock, stage 1, unspecified laterality Comments: Topical cream given to cover for yeast Also advise donut pillow to keep pressure off Orders: - ketoconazole (NIZORAL) 2 % cream; Apply topically 2 (two) times a day Left hip pain - XR Hip Left 2+ Vw; Future Hyperkalemia - Basic metabolic panel; Future Type 2 diabetes mellitus with diabetic neuropathy, with long-term current use of insulin ([facility]) ([facility]) Assessment & Plan: Following with endocrine, reviewed note Continue 30 units lantus, 10 units humalog with meals +SS & trulicity 0.75mg Madhav continuous glucose monitor changed in office today Other diabetic neurological complication associated with type 2 diabetes mellitus ([facility]) Assessment & Plan: Continue lyrica 150mg nightly Hypertension associated with diabetes ([facility]) Assessment & Plan: Blood pressure at goal, continue coreg 3.125mg twice a day Hyperlipidemia associated with type 2 diabetes mellitus ([facility]) Assessment & Plan: Continue statin Stage 3b chronic kidney disease ([facility]) Assessment & Plan: Following with nephrology, reviewed notes Left leg DVT (CMS/HCC) ([facility]) Assessment & Plan: Continue eliquis Schizoaffective disorder, bipolar type (CMS/[facility]) ([facility]) Assessment & Plan: Following with psychiatry, continue risperidal Late onset Alzheimer's dementia without behavioral disturbance ([facility]) Assessment & Plan: Following with psychiatry Pulmonary nodule Assessment & Plan: Reviewed with daughter need to repeat in 1y F/u 3 months or sooner as needed if symptoms not improving or worsen. Strict return/ED precautions discussed. My total encounter time on 01/14/2022 was 60 minutes which was spent in the activities documented inthe note. This includes time spent prior to the visit and after the visit in direct care of the patient. This time does not include time spent in any separately reportable services. Subjective: Barbara Chakraborty is a 71 y.o. female here for hospital follow up HPI Chief Complaint Patient presents with ??? rehab follow up was hospitalized for pneumonia & L leg DVT at [facility], then after d/c hospitalized at [facility] for weakness. D/c to SNF, now home with daughter. Has HH with physical therapy, OT & nursing coming out 2x/week x1h. Wound on buttocks since hospitalization and wound on her foot Daughter notes she complains about pain in L hip, had a few falls at SNF per daughter dm: follows with endo on 30 units lantus, 10 units humalog with meals +SS & trulicity, previously on jardiance. Daughter states blood sugar in 100's, forgot meter neuropathy: on lyrica 150mg +ALA & b complex htn: on coreg 3.125mg bid hld: on 20mg atorvastatin CKD: follows with nephro, on lasix 40mg bid L leg DVT: on eliquis 5mg bid schizoaffective bipolar type: follows with psych on risperidal pulmonary nodule: needs repeat CT November 2022 Review of Systems Respiratory: Negative for cough and shortness of breath. Musculoskeletal: Positive for arthralgias. Skin: Positive for wound. Objective: Vital signs were reviewed. Vitals: 01/14/22 0841 BP: 118/66 BP Location: Left arm Patient Position: Sitting Pulse: 75 Resp: 18 Temp: 36.6 ??C (97.9 ??F) TempSrc: Temporal SpO2: 98% Height: 157.5 cm (5' 2 ) Physical Exam Gen: NAD, comfortable, appears as stated age Eyes: no conjunctival injection, EOMI ENMT: external ears symmetric CV: Regular rate Pulm: no increased work of breathing Skin: pressure sore of L heel and midline buttocks, warm and dry MSK/Neuro: symmetric limb movement, using wheelchair for ambulation, TTP lateral L hip and pain with flexion and internal rotation Psych: alert and oriented to person/place Cherelle Corcoran MD documented in this encounter Miscellaneous Notes * Assessment & Plan Note - Cherelle Corcoran MD - 01/14/2022 9:05 AM CDTAssociated Problem(s): Late onset Alzheimer's dementia without behavioral disturbance (HCC) Following with psychiatry * Assessment & Plan Note - Cherelle Corcoran MD - 01/14/2022 9:05 AM CDTAssociated Problem(s): Pulmonary nodule Reviewed with daughter need to repeat in 1y * Assessment & Plan Note - Cherelle Corcoran MD - 01/14/2022 9:04 AM CDTAssociated Problem(s): Schizoaffective disorder, bipolar type (CMS/HCC) (HCC) (Deleted) Following with psychiatry, continue risperidal * Assessment & Plan Note - Cherelle Corcoran MD - 01/14/2022 9:04 AM CDTAssociated Problem(s): Left leg DVT (HCC) (Resolved 11/10/2023) Continue eliquis * Assessment & Plan Note - Cherelle Corcoran MD - 01/14/2022 9:03 AM CDTAssociated Problem(s): 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 2 diabetes mellitus (CMS/HCC) (HCC) (Deleted) Following with nephrology, reviewed notes * Assessment & Plan Note - Cherelle Corcoran MD - 01/14/2022 9:03 AM CDTAssociated Problem(s): Mixed hyperlipidemia Continue statin * Assessment & Plan Note - Cherelle Corcoran MD - 01/14/2022 9:02 AM CDTAssociated Problem(s): Primary hypertension Blood pressure at goal, continue coreg 3.125mg twice a day * Assessment & Plan Note - Cherelle Corcoran MD - 01/14/2022 9:02 AM CDTAssociated Problem(s): Diabetic neuropathy (HCC) (Resolved 05/16/2024) Continue lyrica 150mg nightly * Assessment & Plan Note - Cherelle Corcoran MD - 01/14/2022 9:01 AM CDTAssociated Problem(s): Type 2 diabetes mellitus with diabetic neuropathy, with long-term current use of insulin (HCC) Following with endocrine, reviewed note Continue 30 units lantus, 10 units humalog with meals +SS & trulicity 0.75mg Madhav continuous glucose monitor changed in office today documented in this encounter Plan of Treatment Upcoming Encounters Date Type Department Care Team (Latest Contact Info) Description 07/13/2024 9:00 AM LINOTYPER Hospital Encounter [facility] [address] [place] [address] Jaya Grier MD [facility] [address] [address] 07/13/2024 9:00 AM LINOTYPER - 07/13/2024 9:30 AM LINOTYPER Surgery [facility] [address] [place] [address] Jaya Grier MD [address] [address] ESOPHAGOGASTRODUODENOSCOPY Scheduled Procedures Name Priority Associated Diagnoses Date/Ti me ESOPHAGOGASTRODUODENOSCOPY Anemia, unspecified type Gastritis without bleeding, unspecified chronicity, unspecified gastritis type 07/13/2024 9:00 AM LINOTYPER COLONOSCOPY Iron deficiency anemia due to chronic blood loss documented as of this encounter Results * XR Hip Left [...] AM T: ??01/14/2022 11:21 AM Report ID: [id number] Reading Location: ??[id number] Procedure Note Larry Lowe MD - 01/14/2022 [...] Larry Lowe M.D. MF: HANNAH Report ID: [id number] Reading Location: [id number] Cherelle Corcoran MD IMG XR PROCEDURES Final Result * (ABNORMAL) Basic metabolic panel (01/14/2022 9:57 AM CDT) Sodium 140 135 - 145 mmol/L NILSA Comment:Testing performed by : [address] [address] Potassium, pl 4.7 3.3 - 4.9 mmol/L NILSA Comment:Testing performed by : [address] [address] Chloride 101 97 - 110 mmol/L NILSA Comment:Testing performed by : [address] [address] CO2 28 22 - 32 mmol/L NILSA Comment:Testing performed by : [address] [address] Anion gap 11 2 - 15 mmol/L NILSA Comment:Testing performed by : [address] [address] BUN 46(H) 8 - 25 mg/dL [facility] Comment:Testing performed by : [address] [address] Creatinine 1.80(H) 0.60 - 1.10 mg/dL NILSA Comment:Testing performed by : [address] [address] Glucose 270(H) 70 - 199 mg/dL NILSA [...] was last revised 2017. Testing performed by: [address] [address] Calcium 9.8 8.5 - 10.3 mg/dL NILSA RODRIGES Comment:Testing performed by : [address] [address] Blood 01/14/2022 9:57 AM CDT 01/14/2022 12:03 PM CDT us Cherelle Corcoran MD LAB BLOOD ORDERAB LES Final Result Performing Organization Address City/State/[facility] Co de Phone Number NILSA [address] [facility] Department [place] [address] documented in this encounter Visit Diagnoses Diagnosis Pressure injury of left heel, stage 1- Primary Pressure injury of buttock, stage 1, unspecified laterality Left hip pain Pain in joint, pelvic region and thigh Hyperkalemia Hyperpotassemia Type 2 diabetes mellitus with diabetic neuropathy, with long-term current use of insulin (HCC) Other diabetic neurological complication associated with type 2 diabetes mellitus (HCC) Hypertension associated with diabetes (HCC) Unspecified essential hypertension Hyperlipidemia associated with type 2 diabetes mellitus (HCC) Stage 3b chronic kidney disease (HCC) Left leg DVT (HCC) Schizoaffective disorder, bipolar type (CMS/HCC) (HCC) Schizoaffective disorder, unspecified condition Late onset Alzheimer's dementia without behavioral disturbance (HCC) Pulmonary nodule Other diseases of lung, not elsewhere classified Left hip pain Pain in joint, pelvic region and thigh Anemia, unspecified type Gastritis without bleeding, unspecified chronicity, unspecified gastritis type documented in this encounter Discontinued Medications Medication Sig Discontinue Reason Start Date End Da te furosemide (LASIX) 20 mg tabletIndications:hyper tension Take 3 mg by mouth daily. Indications: high blood pressure Duplicate order 01/14/2022 guaiFENesin ER (MUCINEX) 600 mg 12 hr tablet Take 1,200 mg by mouth 2 (two) times a day Therapy completed 01/14/2022 benzonatate (TESSALON) 100 mg capsuleIndications:Coug h Take 100 mg by mouth 3 (three) times a day as needed for cough Therapy completed 01/14/2022 atorvastatin (LIPITOR) 40 mg tablet Take 1 tablet (40 mg total) by mouth daily Dose adjustment 02/18/2021 01/14/2022 documented as of this encounter Care Teams Development Representative Relationship Specialty Start Date End Date Cherelle Corcoran MD PCP - General Family Medicine 08/30/19 Mark Queen MD Consulting Physician Infectious Diseases 01/10/20 documented as of this encounter
--- OUTSIDE RECORDS SUMMARY | 2024-07-04 04:14 | XMS_ITS | Encounter Summary ---
Author Organization [facility] Home Care Servic es Address [address] [place] [address] Phone Care Team Providers Care Regional Clinical Research Associate Name Role Phone Cherelle Corcoran MD Primary Care Pro vider Mark Queen MD Unavailable [phone]- [phone] Reason for Visit * Auth/Cert Specialty Diagnoses / Procedures Referred By Maryse t Referred To Contact Referral ID Status Reason Start Date Expiration Date Visits Re quested Visits Authorized [id number] 1 1 Encounter Details Date Type Department Care Team (Latest Contact Info) Description 04/17/2022 1:00 PM CDT Home Care Visit [facility] Home Health [address] [address] [address] [place] [address] Monserrat Bermudez, PT PT OASIS START OF CARE Social History Tobacco [...] on file Legal Sex Female 9:03 AM PIECE JOBBER Gender Identity Female 02/08/2020 6:39 PM CDT Sexual Orientation Not on file documented as of this encounter Last Filed Vital Signs Vital Sign Reading Time Taken Comments Blood Pressure 152/80 04/17/2022 3:20 PM CDT Pulse 72 04/17/2022 3:20 PM CDT Temperature 36.7 ??C (98.1 ??F) 04/17/2022 3:20 PM CD T Respiratory Rate 17 04/17/2022 3:20 PM CDT Oxygen Saturation 97% 04/17/2022 3:20 PM CDT Inhaled Oxygen Concentration - - Weight 72.6 kg (160 lb) 04/17/2022 12:00 AM CDT Height 157.5 cm (5' 2 ) 04/17/2022 12:00 AM CDT Body Mass Index 29.26 04/17/2022 12:00 AM CDT documented in this encounter Miscellaneous Notes * Home Health Plan for Next Visit - Monserrat Bermudez, PT - 04/17/2022 2:44 PM CDT Reason for today's visit :SOC, initiation of HEP, patient education Discuss plan of care with : patient Discharge planning: when stable and goals addressed Plan for next visit : ongoing patient education, progression of HEP and functional mobility if tolerated lives with family in home with 3 steps to enter/exit. does not go to basement. reports increased pain in hands an feet over past 2 months. takes tyelnol and uses heat at times. * Quality Review - Sue William - 04/17/2022 2:26 PM CDT M1028 - Comorbidities and Co-existing Conditions ??? Check all that apply See OASIS Guidance Manualfor a complete list of relevant ICD-10 codes Documented Answer: Recommendation: 2 - Diabetes Mellitus Comments: diabetes per physician documentation. M1033 - Risk for Hospitalization: Which of the following signs or symptoms characterize this patient as at risk for hospitalization? Documented Answer: 7 - Currently taking 5 or more medications Recommendation: 7 - Currently taking 5 or more medications; 9 - Other risk(s) not listed in 1 - 8 Comments: Recommend number 9 also; as patient is at risk for falls; and co- morbid diagnosis; may beat risk for hospitalization. M1850 - Transferring: Current ability to move safely from bed to chair, or ability to turn and position self in bed if patient is bedfast. Documented Answer: 1 - Able to transfer with minimal human assistance or with use of an assistive device. Recommendation: 2 - Able to bear weight and pivot during the transfer but unable to transfer self. Reason: Clinical documentation reflects a MAHC-10 score greater than or equal to 4-patient is at risk for falls. For the purposes of this OASIS item, assistance includes verbal cuing and/or supervision. M2102 - Types and Sources of Assistance: Determine the ability and willingness of non-agency caregivers (such as family members, friends, or privately paid caregivers) to provide assistance for the following activities, if assistance is needed. Excludes all care by your agency staff. Documented Answer: 2 - Non-agency caregiver(s) need training/supportive services to provide assistance Recommendation: 1 - Non-agency caregiver(s) currently provide assistance Comments: Does not appear that clinician is teaching/training caregiver re supervision/safety: (forexample, due to cognitive impairment). 04/23/22 -SUZY Garcia Chart review and recommendations completed by: Chelsy Burnette RN, HCS-D documented in this encounter Plan of Treatment Upcoming Encounters Date Type Department Care Team (Latest Contact Info) Description 07/13/2024 9:00 AM PIECE JOBBER Hospital Encounter [facility] [address] [place] [address] Jaya Grier MD [address] [place] [address] 07/13/2024 9:00 AM PIECE JOBBER - 07/13/2024 9:30 AM PIECE JOBBER Surgery [facility] [address] [place] [address] Jaya Grier MD [address] [place] [address] ESOPHAGOGASTRODUODENOSCOPY Scheduled Procedures Name Priority Associated Diagnoses Date/Ti me ESOPHAGOGASTRODUODENOSCOPY Anemia, unspecified type Gastritis without bleeding, unspecified chronicity, unspecified gastritis type 07/13/2024 9:00 AM PIECE JOBBER COLONOSCOPY Iron deficiency anemia due to chronic blood loss documented as of this encounter Visit Diagnoses Not on filedocumented in this encounter Home Health Visit - Care Plan Visit Details Visit Type -PT OASIS Start o f Care Discipline -Physical Therapy Problems Problem Description Start Date Status Goals Interve ntions Homebound Status Disciplines: Skilled Disciplines Patient's homebound status 04/17/2022 Active 1 goal linked to scheduled/documen bruno intervention 1 goal intervention scheduled/documen bruno in this visit Monitor patient's vital signs every home health visit Disciplines: SN, PT, OT, SENIOR FIREWALL ENGINEER, DRAFTER ENGINEERING, Skilled Disciplines Monitor patient's vital signs every [...] 1 goal linked to scheduled/documen bruno intervention 3 goal interventions scheduled/documen bruno in this visit PT Chronic Condition Management Disciplines: Physical Therapy PT Chronic Condition Management 04/17/2022 Active - 2 problem interventions scheduled/documen bruno in this visit PT Medication Management Disciplines: Physical Therapy PT Medication Management 04/17/2022 Active - 2 problem interventions [...] visit during episode of care Description: Home pharmaceutical analyst to measure vital signs during every home [...] Problem:Infection Prevention Goal:Verbalize signs of infection Completed Instructed patient/caregiver on universal precautions and home infection control measures patient verbalizes good understanding of instructions and provides safe verbalization/return demonstration of instructions. Educate Patient on Infection Prevention Description: Instruct patient on signs and symptoms of infection IE: fever, odor, change in color, increased amount of drainage, purulent drainage, warmth. Problem:Infection Prevention Goal:Verbalize signs of infection Completed Instructed patient on signs and symptoms of infection IE: fever, odor, change in color, increased amount of drainage, purulent drainage, warmth. patient verbalizes good understanding of instructions Instruct Fall Prevention Description: Instruct patient/caregiver in methods to prevent falls Problem:Safety concerns Goal:Demonstrate use of safety precautions Completed instructed patient and/or caregiver in methods to prevent falls including: removal of throw rugs from floors, maintaining pathways clear of tripping hazards and pets, using nightlights and keeping wakling areas well-lit, use of assistve device for safety, supervision for mobility including enter/exit house or stair mobility. patient verbalizes good understanding of instructions and provides safe verbalization/return demonstration of instructions. Assess safety Description: Assess patient safety Problem:Safety concerns Goal:Demonstrate use of safety precautions Completed patient safety assessed. instructed to use walker for gait at all time. patient verbalizes good understanding of instructions and provides safe verbalization/return demonstration of instructions. Code Status Description: Discuss with patient/caregiver code status Problem:Safety concerns Goal:Demonstrate use of safety precautions Completed requests CPR Diabetes - Foot Care Description: Instruct patient/caregiver in daily foot inspection and proper footwear. Problem:PT Chronic Condition Management Completed Instructed patient in daily foot inspection and proper footwear. patient verbalizes good understanding of instructions and provides safe verbalization/return demonstration of instructions. Diabetes - Activity/Exercise Description: Instruct patient/caregiver in the effects of activity and exercise on blood sugar to prevent diabetic complications. Problem:PT Chronic Condition Management Completed Instructed patient in the effects of activity and exercise on blood sugar to prevent diabetic complications. patient verbalizes good understanding of instructions Pain medication Instruction Description: Instruct patient/caregiver in high risk pain medications including common side effects, prescribed dosing schedule and contacting physician with questions or concerns. Problem:PT Medication Management Completed instructed to rest and reposition as needed, atek tylenol routinely as prescribed. patient verbalizes good understanding of instructions and provides safe verbalization/return demonstration of instructions. Medication Regimen Description: Assess patient/caregiver ability to follow prescribed medication regimen, including monitoring for side effects, notifying physician of questions or concerns and contacting pharmacy for refills when needed. Problem:PT Medication Management Completed reviewed med list. patient denies any needs for education on meds. states MD and pharmacy provide adequate medication education. possible major interactions noted with current meds and reported to Dr. Corcoran with SOC report. reviewed meds in home. patient has complete med list available in home. instructed patient to take meds as prescribed. patient verbalizes good understanding of instructions and provides safe verbalization/return demonstration of instructions. Gait/Stair Training Description: Instruct patient/caregiver and perform gait/stair training. Problem:PT Impaired Functional Mobility/Balance Completed instructed to rest as needed, gradually increase walking program as tolerated and use assistive device as needed for safety. patient verbalizes good understanding of instructions and provides safe verbalization/return demonstration of instructions. Therapeutic Exercise Description: Perform therapeutic exercise, progressing as tolerated. Problem:PT Impaired Functional Mobility/Balance Completed demonstrates sitting Peng LE exercises X 10 reps: ankle pumps, knee extension, hip abduction, marching. demonstrates sitting Peng UE exercises X 10 reps: shoulder flexion, embow flexion/extension, finger flexion/extension. demonstrates cervical exercises X 5 reps: rotate R and L, shoulder shrugs and shoudler circles. Transfer training Description: Instruct patient/caregiver and perform transfer training. Problem:PT Impaired Functional Mobility/Balance Completed verbal cues to scoot to edge of chair, lean forwards, push with arms and legs into stand. avoid pulling on walker. patient verbalizes good understanding of instructions and provides safe verbalization/return demonstration of instructions. Home Exercise Program (HEP) Description: Instruct patient/caregiver and perform HEP. Problem:PT Impaired Functional Mobility/Balance Completed instructed to continue HEP X 10-20 reps BID as tolerated. issued handouts for reference. patient verbalizes good understanding of instructions and provides safe verbalization/return demonstration of instructions. documented in this encounter Care Teams Regional Clinical Research Associate Relationship Specialty Start Date End Date Cherelle Corcoran MD PCP - General Family Medicine 08/30/19 Mark Queen MD Consulting Physician Infectious Diseases 01/10/20 documented as of this encounter
--- OUTSIDE RECORDS SUMMARY | 2024-07-04 04:14 | XMS_ITS | Encounter Summary ---
Author Organization [facility] Home Care Servic es Address [address] [place] [address] Phone Care Team Providers Care Adult Day Care Worker Name Role Phone Cherelle Corcoran MD Primary Care Pro vider Mark Queen MD Unavailable [phone]- [phone] Reason for Visit * Auth/Cert Specialty Diagnoses / Procedures Referred By Maryse t Referred To Contact Referral ID Status Reason Start Date Expiration Date Visits Re quested Visits Authorized [id number] 1 1 Encounter Details Date Type Department Care Team (Late st Contact Info) Description 01/16/2022 12:30 PM CDT Home Care Visit [facility] [address] [address] [address] [place] [address] Sarahy Feliciano PTA PT HOME VISIT Social [...] you attend chur ch or hinduism services? Never 09/10/2021 Do you belong to [...] on file Legal Sex Female 9:03 AM TEXTURING MACHINE FIXER Gender Identity Female 02/08/2020 6:39 PM CDT Sexual Orientation Not on file documented as of this encounter Last Filed Vital Signs Vital Sign Reading Time Taken Comments Blood Pressure 148/82 01/16/2022 12:41 PM CDT Pulse 72 01/16/2022 12:41 PM CDT Temperature 37.2 ??C (98.9 ??F) 01/16/2022 12:41 PM C DT Respiratory Rate 16 01/16/2022 12:41 PM CDT Oxygen Saturation 97% 01/16/2022 12:41 PM CDT Inhaled Oxygen Concentration - - Weight - - Height - - Body Mass Index - - documented in this encounter Miscellaneous Notes * Home Health Visit Narrative - Sarahy Feliciano PTA - 01/16/2022 12:37 PM CDT Atorvastatin 20 mg tablets- prescription number [id number] furosemide 40 mg tablets-presecription number [id number] * Home Health Plan for Next Visit - Sarahy Feliciano PTA - 01/16/2022 12:37 PM CDT Reason for today's visit gait, transfers, balance and safety Discuss plan of care with pt and son Discharge planning when appropriate Plan for next visit for PT to reassess pt for continued therapy or discharge. Updated the PT on ptscurrent status. documented in this encounter Plan of Treatment Upcoming Encounters Date Type Department Care Team (Latest Contact Info) Description 07/13/2024 9:00 AM TEXTURING MACHINE FIXER Hospital Encounter [facility] [address] [place] [address] Jaya Grier MD [address] [address] 07/13/2024 9:00 AM TEXTURING MACHINE FIXER - 07/13/2024 9:30 AM TEXTURING MACHINE FIXER Surgery [facility] [address] [place] [address] Jaya Grier MD [address] [facility] [address] [place] [address] ESOPHAGOGASTRODUODENOSCOPY Scheduled Procedures Name Priority Associated Diagnoses Date/Ti me ESOPHAGOGASTRODUODENOSCOPY Anemia, unspecified type Gastritis without bleeding, unspecified chronicity, unspecified gastritis type 07/13/2024 9:00 AM TEXTURING MACHINE FIXER COLONOSCOPY Iron deficiency anemia due to chronic [...] home health visit Disciplines: SN, PT, OT, GARBAGE COLLECTOR SUPERVISOR, PUBLISHING EDITOR, Skilled Disciplines Monitor patient's vital signs every [...] visit during episode of care Description: Home primary clinician to measure vital signs during every [...] HEP. Problem:PT Impaired Functional Mobility Completed pt instructed in hep, pt voiced no problems after increasing reps at last visit with supine therex from 10 to 15. pts son voiced varied compliance with seated HEP and poor compliance with supine HEP. Discussed with pt and son of the benefits and rationale of the HEP. Gait/Stair Training Description: Instruct patient/caregiver and perform gait/stair training. Problem:PT Impaired Functional Mobility Completed pt instructed in gait training in her home and outside on concrete, and stair training with use of ww. pt completed gait in home with use of ww with a slow and guarded lanny, decreased walker manipulation and safety in her room (note pts room is clutterd), demoed a min flexed posture, decreased gregoria, decreased step length, height, and heel strike. Pt completed 2 steps with ww cga for balance and moderate assist for walker manipulation. pt was able to verbalize the correct technique for completing steps. Bed Mobility/Transfer Training Description: Instruct patient/caregiver and perform bed mobility/transfer training. Problem:PT Impaired Functional Mobility Completed Pt instructed in technique with bed mobility. pt reports that she crawls into bed. pt completed sit to/from supine with sba with min cues for technique, ie backing up to the bed, sitting prior to laying down and demoed good follow through. discussion with pt and son about the beneifts of installing a bed rail to improve pts technique and decrease fall risk with supine to sit transfers. pt completed sup to sit with sba however pt requried increased time and effort to complete. Balance Training/Activities Description: Instruct patient/caregiver and perform balance training activities. Problem:PT Impaired Functional Mobility Completed Pt instructed in standing challenges outright with eyes open and closed. pt noted to have no lob however displayed anteiror/posterior sways with both activities with the severity of the sways increasing with the eyes closed activities. provided verbal and tactile cues to contract gluts, extend trunk and to keep head up to facilaite improved posture and balance. pt demoed fair follow through for short periods requiring verbal cues to be provided t/o the activities. Therapeutic Exercise Description: Perform therapeutic exercise, progressing as tolerated. Problem:PT Impaired Functional Mobility Completed Pt instructed on supine therex 15 reps x 1 set for ankle pumps, hip abd, heel slides, saq, and quad sets. provided pt with verbal and tactile cues to hold the exercises for the appropriate time and to stay on task to complete the exercises with good follow through noted. Skilled assessment wound Description: Full wound assessment [...] Scheduled documented in this encounter Care Teams Adult Day Care Worker Relationship Specialty Start Date End Date Cherelle Corcoran MD PCP - General Family Medicine 08/30/19 Mark Queen MD Consulting Physician Infectious Diseases 01/10/20 documented as of this encounter
--- OUTSIDE RECORDS SUMMARY | 2024-07-04 04:14 | XMS_ITS | Encounter Summary ---
Author Organization [facility] Home Care [facility] es Address [address] [place] [address] Phone Care Team Providers Care Top Lift And Automatic Window Repairer Name Role Phone Cherelle Corcoran MD Primary Care Pro vider Mark Queen MD Unavailable [phone] Reason for Visit * Auth/Cert Specialty Diagnoses / Procedures Referred By Maryse t Referred To Contact Referral ID Status Reason Start Date Expiration Date Visits Re quested Visits Authorized [id number] 1 1 Encounter Details Date Type Department Care Team (Late st Contact Info) Description 01/02/2022 Home Care Visit [facility] Home Health - [address] [address] [address] [place] [address] Jamila Cabrera, RN CASE COMMUNICATION Social History Tobacco Use Types Packs/Day Years [...] you attend chur ch or mu-ism services? Never 09/10/2021 Do you belong to [...] on file Legal Sex Female 9:03 AM ELECTRONIC TECHNOLOGIST Gender Identity Female 02/08/2020 6:39 PM CDT Sexual Orientation Not on file documented as of this encounter Plan of Treatment Upcoming Encounters Date Type Department Care Team (Latest Contact Info) Description 07/13/2024 9:00 AM ELECTRONIC TECHNOLOGIST Hospital Encounter [facility] [address] [place] [address] Jaya Grier MD [facility] [facility] [address] [place] [address] [place] [address] 07/13/2024 9:00 AM ELECTRONIC TECHNOLOGIST - 07/13/2024 9:30 AM ELECTRONIC TECHNOLOGIST Surgery [facility] [address] [place] [address] Jaya Grier MD [facility] [facility] [address] [place] [address] [place] [address] ESOPHAGOGASTRODUODENOSCOPY Scheduled Procedures Name Priority Associated Diagnoses Date/Ti me ESOPHAGOGASTRODUODENOSCOPY Anemia, unspecified type Gastritis without bleeding, unspecified chronicity, unspecified gastritis type 07/13/2024 9:00 AM ELECTRONIC TECHNOLOGIST COLONOSCOPY Iron deficiency anemia due to chronic blood loss documented as of this encounter Visit Diagnoses Not on filedocumented in this encounter Care Teams Top Lift And Automatic Window Repairer Relationship Specialty Start Date End Date Cherelle Corcoran MD PCP - General Family Medicine 08/30/19 Mark Queen MD Consulting Physician Infectious Diseases 01/10/20 documented as of this encounter
--- OUTSIDE RECORDS SUMMARY | 2024-07-04 04:14 | XMS_ITS | Encounter Summary ---
Author Organization [facility] Address [address] [place] [address] Care Team Providers Care Skylights Assembler Name Role Phone Cherelle Corcoran MD Primary Care Pro vider Mark Queen MD Unavailable [phone] Reason for Referral * Consultation (Routine) - Closed Specialty Diagnoses / Procedures Referred By Maryse t Referred To Contact Neurology Diagnoses Tremor Cherelle Corcoran MD Phone: tel: fax: [facility] Medical [facility] Neurology [address] [place] [address] Phone: tel: fax: Referral ID Status Reason Start Date Expiration Date V isits Requested Visits Authorized [id number] Closed Specialty Services Required 04/01/2022 05/01/2023 1 1 Question Answer Please select the performing region: [facility] [[id number]] Please select the performing department: [facility] [address] [[phone]] # of visits: 1 Reason for Visit * Reason Comments Shaking Encounter Details Date Type Department Care Team (Late st Contact Info) Description 04/01/2022 1:45 PM CDT Office Visit [facility] Primary Care [address] [place] [address] Cherelle Corcoran MD [address] [facility] [address] [place] [address] Tremor (Primary Dx); Schizoaffective disorder, bipolar type (CMS/HCC) (HCC); Chronic bilateral low back pain with bilateral sciatica; Type 2 diabetes mellitus with diabetic neuropathy, with long-term current use of insulin (CMS/HCC) (HCC); Other diabetic neurological complication associated with type 2 diabetes mellitus (HCC); Hypertension associated with diabetes (HCC); Hyperlipidemia associated with type 2 diabetes mellitus (HCC); Stage 3b chronic kidney disease (HCC); Left leg DVT (CMS/HCC) (HCC); Need for vaccination Social History Tobacco Use Types Packs/Day Years [...] How often do you attend chur or yazidism services? 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 Gender Identity Female 02/08/2020 6:39 PM CDT Sexual Orientation Not on file documented as of this encounter Last Filed Vital Signs Vital Sign Reading Time Taken Comments Blood Pressure 130/70 04/01/2022 2:16 PM CDT Pulse 81 04/01/2022 2:16 PM CDT Temperature 36.5 ??C (97.7 ??F) 04/01/2022 2:16 PM CD T Respiratory Rate 18 04/01/2022 2:16 PM CDT Oxygen Saturation 99% 04/01/2022 2:16 PM CDT Inhaled Oxygen Concentration - - Weight 74.7 kg (164 lb 11.2 oz) 04/01/2022 2:16 PM CDT Height 157.5 cm (5' 2 ) 04/01/2022 2:16 PM CDT Body Mass Index 30.12 04/01/2022 2:16 PM CDT documented in this encounter Progress Notes * Cherelle Corcoran MD - 04/01/2022 1:45 PM CDT Images from the original note were not included. Assessment/Plan: Assessment/Plan Diagnoses and all orders for this visit: Tremor (Primary) - Ambulatory referral to Neurology; Future Schizoaffective disorder, bipolar type ([facility]) ([facility]) Assessment & Plan: Following with psychiatry, on risperdal Chronic bilateral low back pain with bilateral sciatica Comments: Reviewed recent CT scan, no severe findings Continue lidocaine patches Declines injections Referral for PT Orders: - Ambulatory referral order to Physical Therapy -; Future Type 2 diabetes mellitus with diabetic neuropathy, with long-term current use of insulin ([facility]) ([facility]) Assessment & Plan: Following with endocrine, encouraged daughter to download monitor with them so medications can be adjusted Other diabetic neurological complication associated with type 2 diabetes mellitus ([facility]) Assessment & Plan: Continue lyrica 150mg nightly Hypertension associated with diabetes ([facility]) Assessment & Plan: Blood pressure at goal, continue coreg 3.125mg twice a day & valsartan 40mg, encouraged to recheck labs per nephro Hyperlipidemia associated with type 2 diabetes mellitus ([facility]) Assessment & Plan: Continue statin Stage 3b chronic kidney disease ([facility]) Assessment & Plan: Following with nephrology, reviewed notes, encouraged to obtain labs Left leg DVT ([facility]) ([facility]) Assessment & Plan: Continue eliquis Need for vaccination - Flu Vaccine Quad High Dose PF 65Y+ IM - Fluzone High Dose Quad F/u 1-2 months for AWV or sooner as needed if symptoms not improving or worsen. Strict return/ED precautions discussed. Subjective: Barbara Chakraborty is a 71 y.o. female here for tremor HPI Chief Complaint Patient presents with Shaking Notes lip smacking and tremor in hands and feet. Has talked to psychiatrist about and treated for tardive dyskinesia (benzotropine), but advised evaluation for parkinson's given dementia Also notes bilateral lower back pain. Using lidocaine patches, one on each side, which helps some. Previously had ct lumbar spine in jul. Not interested in injections, is interested in PT dm: follows with endo on 30 units lantus, 10 units humalog with meals +SS & trulicity 1.5mg, previously on jardiance. neuropathy: on lyrica 150mg +ALA & b complex htn: on coreg 3.125mg bid & started on valsartan 40mg by nephrology, due to recheck labs hld: on 20mg atorvastatin CKD: follows with nephro, on lasix 40mg bid L leg DVT: on eliquis 5mg bid schizoaffective bipolar type: follows with psych on risperidal pulmonary nodule: needs repeat CT November 2022 Pressure sore of buttocks resolved. Pressure sore on foot persistent: seeing podiatry Review of Systems Musculoskeletal: Positive for back pain. Skin: Positive for wound. Objective: Vital signs were reviewed. Vitals: 04/01/22 1416 BP: 130/70 BP Location: Left arm Patient Position: Sitting Pulse: 81 Resp: 18 Temp: 36.5 ??C (97.7 ??F) TempSrc: Temporal SpO2: 99% Weight: 74.7 kg (164 lb 11.2 oz) Height: 157.5 cm (5' 2 ) Physical Exam Gen: NAD, comfortable, appears as stated age Eyes: no conjunctival injection, EOMI ENMT: external ears symmetric CV: Regular rate Pulm: no increased work of breathing Skin: eschar of posterior L heel with area of superficial ulceration surrounded by mild pinkness, no erythema, drainage or warmth, warm and dry MSK/Neuro: symmetric limb movement, using wheelchair, resting tremor bilateral hands Psych: alert and oriented to person Cherelle Corcoran MD documented in this encounter Miscellaneous Notes * Assessment & Plan Note - Cherelle Corcoran MD - 04/02/2022 6:06 AM CDTAssociated Problem(s): Toe necrosis (CMS/HCC) (HCC) Following with vascular & podiatry No evidence of infection today, but advise close follow up with podiatry * Assessment & Plan Note - Cherelle Corcoran MD - 04/02/2022 6:06 AM CDTAssociated Problem(s): Schizoaffective disorder, bipolar type (CMS/HCC) (HCC) Following with psychiatry, on risperdal * Assessment & Plan Note - Cherelle Corcoran MD - 04/02/2022 6:05 AM CDTAssociated Problem(s): Left leg DVT ([facility]) (Resolved 11/10/2023) Continue eliquis * Assessment & Plan Note - Cherelle Corcoran MD - 04/02/2022 6:05 AM CDTAssociated Problem(s): 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 2 diabetes mellitus (CMS/HCC) (HCC) (Deleted) Following with nephrology, reviewed notes, encouraged to obtain labs * Assessment & Plan Note - Cherelle Corcoran MD - 04/02/2022 6:05 AM CDTAssociated Problem(s): Mixed hyperlipidemia Continue statin * Assessment & Plan Note - Cherelle Corcoran MD - 04/02/2022 6:04 AM CDTAssociated Problem(s): Primary hypertension Blood pressure at goal, continue coreg 3.125mg twice a day & valsartan 40mg, encouraged to recheck labs per nephro * Assessment & Plan Note - Cherelle Corcoran MD - 04/02/2022 6:04 AM CDTAssociated Problem(s): Diabetic neuropathy (HCC) (Resolved 05/16/2024) Continue lyrica 150mg nightly * Assessment & Plan Note - Cherelle Corcoran MD - 04/02/2022 6:03 AM CDTAssociated Problem(s): Type 2 diabetes mellitus with diabetic neuropathy, with long-term current use of insulin (HCC) Following with endocrine, encouraged daughter to download monitor with them so medications can be adjusted documented in this encounter Plan of Treatment Upcoming Encounters Date Type Department Care Team (Latest Contact Info) Description 07/13/2024 9:00 AM FOUNDRY MELT SUPERVISOR Hospital Encounter [facility] GI Lab [address] [place] [address] Jaya Grier MD [address] [place] [address] DR GAINES [address] [place] [address] 07/13/2024 9:00 AM FOUNDRY MELT SUPERVISOR - 07/13/2024 9:30 AM FOUNDRY MELT SUPERVISOR Surgery [facility] [address] [place] [address] Jaya Grier MD [address] [place] [address] DR GAINES [address] [place] [address] ESOPHAGOGASTRODUODENOSCOPY Scheduled Procedures Name Priority Associated Diagnoses Date/Ti az ESOPHAGOGASTRODUODENOSCOPY Anemia, unspecified type Gastritis without bleeding, unspecified chronicity, unspecified gastritis type 07/13/2024 9:00 AM FOUNDRY MELT SUPERVISOR COLONOSCOPY Iron deficiency anemia due to chronic blood loss Scheduled Referrals Name Type Priority Associated Diagnoses Order Schedule Ambulatory referral to Neurology Outpatient Referral Routine Tremor Expected: 04/15/2022 (Approximate), Expires: 04/01/2023 documented as of this encounter Visit Diagnoses Diagnosis Tremor- Primary Abnormal involuntary movements Schizoaffective disorder, bipolar type (CMS/HCC) (HCC) Schizoaffective disorder, unspecified condition Chronic bilateral low back pain with bilateral sciatica Type 2 diabetes mellitus with diabetic neuropathy, with long-term current use of insulin (HCC) Other diabetic neurological complication associated with type 2 diabetes mellitus (HCC) Hypertension associated with diabetes (HCC) Unspecified essential hypertension Hyperlipidemia associated with type 2 diabetes mellitus (HCC) Stage 3b chronic kidney disease (HCC) Left leg DVT (HCC) Need for vaccination Need for prophylactic vaccination and inoculation against unspecified single disease Anemia, unspecified type Gastritis without bleeding, unspecified chronicity, unspecified gastritis type documented in this encounter Orders Immunization/Injection Count Last Ordered Date First Ordered Date FLU VACCINE HIGH DOSE QUAD P F 65Y+ IM - FLUZONE HIGH DOS 1 04/01/2022 documented in this encounter Care Teams Skylights Assembler Relationship Specialty Start Date End Date Cherelle Corcoran MD PCP - General Family Medicine 08/30/19 Mark Queen MD Consulting Physician Infectious Diseases 01/10/20 documented as of this encounter
--- OUTSIDE RECORDS SUMMARY | 2024-07-04 04:14 | XMS_ITS | Encounter Summary ---
Author Organization [facility] Address [address] [place] [address] Care Team Providers Care Tool And Die Repairer Name Role Phone Cherelle Corcoran MD Primary Care Pro vider Mark Queen MD Unavailable [phone] Reason for Visit * Reason Onset Date Comments OT/[facility] home care 01/02/2022 Encounter Details Date Type Department Care Team ([facility] st Contact Info) Description 01/02/2022 Telephone [facility] Primary Care [facility] [address] [place] [address] Cherelle Corcoran MD [address] [place] [address] [address] [place] [address] OT/[facility] home care Social History Tobacco Use Types Packs/Day [...] you attend chur ch or sabianist services? Never 09/10/2021 Do you belong to [...] on file Legal Sex Female 9:03 AM MACHINE MAINTENANCE SUPERVISOR Gender Identity Female 02/08/2020 6:39 PM CDT Sexual Orientation Not on file documented as of this encounter Miscellaneous Notes * Telephone Encounter - Sandy Mota MA - 01/02/2022 2:53 PM CDT FYI * Telephone Encounter - Shannen Escaolna - 01/02/2022 2:48 PM CDT [facility] Home health OT plans to continue care next week, 1-2 times a week for 3 more weeks. Thanks. [facility] [phone] documented in this encounter Plan of Treatment Upcoming Encounters Date Type Department Care Team (Latest Contact Info) Description 07/13/2024 9:00 AM MACHINE MAINTENANCE SUPERVISOR Hospital Encounter [facility] GI Lab [address] [place] [address] Jaya Grier MD [facility] [facility] [address] GAINES [address] [place] [address] 07/13/2024 9:00 AM MACHINE MAINTENANCE SUPERVISOR - 07/13/2024 9:30 AM MACHINE MAINTENANCE SUPERVISOR Surgery [facility] Lab [address] [place] [address] Jaya Grier MD [address] [facility] GAINES [address] [place] [address] ESOPHAGOGASTRODUODENOSCOPY Scheduled Procedures Name Priority Associated Diagnoses Date/Ti dc ESOPHAGOGASTRODUODENOSCOPY Anemia, unspecified type Gastritis without bleeding, unspecified chronicity, unspecified gastritis type 07/13/2024 9:00 AM MACHINE MAINTENANCE SUPERVISOR COLONOSCOPY Iron deficiency anemia due to chronic blood loss documented as of this encounter Visit Diagnoses Not on filedocumented in this encounter Care Teams Tool And Die Repairer Relationship Specialty Start Date End Date Cherelle Corcoran MD PCP - General Family Medicine 08/30/19 Mark Queen MD Consulting Physician Infectious Diseases 01/10/20 documented as of this encounter
--- OUTSIDE RECORDS SUMMARY | 2024-07-04 04:14 | XMS_ITS | Encounter Summary ---
Author Organization [facility] Home Care Servic es Address [address] [place] [address] Phone Care Team Providers Care Stock Mixer Name Role Phone Cherelle Corcoran MD Primary Care Pro vider Mark Queen MD Unavailable [phone] Reason for Visit * Auth/Cert Specialty Diagnoses / Procedures Referred By Maryse t Referred To Contact Referral ID Status Reason Start Date Expiration Date Visits Re quested Visits Authorized [id number] 1 1 Encounter Details Date Type Department Care Team (Late st Contact Info) Description 01/07/2022 10:30 AM CDT Home Care Visit [facility] [address] [address] [address] [place] [address] Diann Hernandze OT OT HOME VISIT Social History Tobacco [...] any clubs o r organizations such as jehovah's witness groups, unions, fraternal or athletic groups, or [...] on file 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 Gender Identity Female 02/08/2020 6:39 PM CDT Sexual Orientation Not on file documented as of this encounter Last Filed Vital Signs Vital Sign Reading Time Taken Comments Blood Pressure 120/70 01/07/2022 10:47 AM CDT Pulse 71 01/07/2022 10:47 AM CDT Temperature 36.5 ??C (97.7 ??F) 01/07/2022 10:47 AM C DT Respiratory Rate 18 01/07/2022 10:47 AM CDT Oxygen Saturation 96% 01/07/2022 10:47 AM CDT Inhaled Oxygen Concentration - - Weight - - Height - - Body Mass Index - - documented in this encounter Miscellaneous Notes * Home Health Plan for Next Visit - Diann Hernandez OT - 01/07/2022 10:40 AM CDT Reason for today's visit HEP implementation for UB, fall prevention education, endurance activities. Discuss plan of care with pt and pt's daughter. Discharge planning within next 2 weeks and/or when goals are met. Plan for next visit: review of HEP, energy conservation strategies, activities to increase endurance for ADLs. documented in this encounter Plan of Treatment Upcoming Encounters Date Type Department Care Team (Latest Contact Info) Description 07/13/2024 9:00 AM TANKAGE GRINDER Hospital Encounter [facility] GI Lab [address] [place] [address] Jaya Grier MD [address] [place] [address] 07/13/2024 9:00 AM TANKAGE GRINDER - 07/13/2024 9:30 AM TANKAGE GRINDER Surgery [facility] GI Lab [address] [place] [address] Jaya Grier MD [address] [place] [address] ESOPHAGOGASTRODUODENOSCOPY Scheduled Procedures Name Priority Associated Diagnoses Date/Ti me ESOPHAGOGASTRODUODENOSCOPY Anemia, unspecified type Gastritis without bleeding, unspecified chronicity, unspecified gastritis type 07/13/2024 9:00 AM TANKAGE GRINDER COLONOSCOPY Iron deficiency anemia due to chronic [...] home health visit Disciplines: SN, PT, OT, CIRCULATION CLERK, STATE DIRECTOR, Skilled Disciplines Monitor patient's vital signs [...] visit during episode of care Description: Home boat operator to measure vital signs during every [...] Goal:Demonstrate use of safety precautions Completed Pt without walker this date due to jules of being dropped off at another daughter's home. Daughter assists pt as needed and pt aware to ask for help as needed to decrease risk for falls. Assess safety Description: Assess patient safety Problem:Safety concerns Goal:Demonstrate use of safety precautions Completed Pt with no dizziness upon standing and no LOB episodes during sit-stand from recliner chair. Pt agreeable to completing slow changes in body position. Instruct on the prevention of deep vein [...] has been reduced or controlled Completed Patient with no reports of pain during session this date. Pressure Relief Description: Instruct patient/caregiver and perform pressure relief techniques Problem:OT Positioning/Pressure Relief Completed OT educated patient on benefits of sit-stands in front of chair with FWW in front of patient to serve as not only exercise but also as a way to decrease presssure on buttocks area where pt has previously had a pressure sore (area on buttocks is closed). Home Exercise Program (HEP) Description: Instruct patient/caregiver in HEP completion. Problem:OT Activity Tolerance/Energy Conservation Completed OT demo'd 5 exercises as part of UB HEP. Pt used green theraband as that was all OT had available however pt will benefit from use of yellow theraband in future sessions. Pt completed movements in planes of shoulder flexion, horizontal ab/adduciton, shoulder flexion, scaption, biceps and tricpes x 5 reps each. Energy Conservation Education Description: Instruct patient/caregiver in techniques for improved activity tolerance Problem:OT Activity Tolerance/Energy Conservation Completed OT educated patient on benefits of deep breathing technique during functional mobility, ADLs and while nervous to serve as a calming strategy and way to get more oxygen into body. Pt verbalized understanding. Transfer Training Description: Instruct patient/caregiver and perform transfer training. Problem:OT Impaired ADLs Completed Pt demo'd 3 sit-stands from recliner with cueing for posture throughout and sequencing of steps for hand placement. Pt did not have FWW available during session due to staying at another daughter's house so OT provided support in stance via hand holding to allow pt to stand up tall while taking several deep breaths. Adaptive Equipment/DME Education Description: Recommend and assist with obtaining assistive devices/DME. Problem:OT Impaired ADLs Completed Pt and pt's daughter stated she has not yet received her shower seat at her daughter's house. To train on transfers with shower seat when it arrives. documented in this encounter Care Teams Stock Mixer Relationship Specialty Start Date End Date Cherelle Corcoran MD PCP - General Family Medicine 08/30/19 Mark Queen MD Consulting Physician Infectious Diseases 01/10/20 documented as of this encounter
--- OUTSIDE RECORDS SUMMARY | 2024-07-04 04:14 | XMS_ITS | Encounter Summary ---
Author Organization [facility] Home Care [facility] es Address [address] [place] [address] Phone Care Team Providers Care Continuous Mining Operator Name Role Phone Cherelle Corcoran MD Primary Care Pro vider Mark Queen MD Unavailable [phone] Reason for Visit * Auth/Cert Specialty Diagnoses / Procedures Referred By Maryse t Referred To Contact Referral ID Status Reason Start Date Expiration Date Visits Re quested Visits Authorized [id number] 1 1 Encounter Details Date Type Department Care Team (Late st Contact Info) Description 01/16/2022 1:30 PM CDT Home Care Visit [facility] [address] [place] [address] Paola Tamayo, RN SN HOME VISIT Social History Tobacco [...] you attend chur ch or mandaeism services? 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 Gender Identity Female 02/08/2020 6:39 PM CDT Sexual Orientation Not on file documented as of this encounter Last Filed Vital Signs Vital Sign Reading Time Taken Comments Blood Pressure 150/70 01/16/2022 1:33 PM CDT Pulse 84 01/16/2022 1:33 PM CDT Temperature 36.2 ??C (97.2 ??F) 01/16/2022 1:33 PM CD T Respiratory Rate - - Oxygen Saturation 98% 01/16/2022 1:33 PM CDT Inhaled Oxygen Concentration - - Weight - - Height - - Body Mass Index - - documented in this encounter Miscellaneous Notes * Home Health Visit Narrative - Paola Tamayo RN - 01/16/2022 2:00 PM CDT patient agreed to have SW see her. documented in this encounter Plan of Treatment Upcoming Encounters Date Type Department Care Team (Latest Contact Info) Description 07/13/2024 9:00 AM [employer] Hospital Encounter [facility] [address] [place] [address] Jaya Grier MD [address] [place] [address] [address] GA[address]ES [address] [place] [id number] 07/13/2024 9:00 AM [employer] - 07/13/2024 9:30 AM [employer] Surgery [facility] [address] [place] [address] Jaya Grier MD [facility] [address] GA[address] [place] [id number] ESOPHAGOGASTRODUODENOSCOPY Scheduled Procedures Name Priority Associated Diagnoses Date/Ti ut ESOPHAGOGASTRODUODENOSCOPY Anemia, unspecified type Gastritis without bleeding, unspecified chronicity, unspecified gastritis type 07/13/2024 9:00 AM [employer] COLONOSCOPY Iron deficiency anemia due to chronic blood loss documented as of this encounter Visit Diagnoses Not on filedocumented in this encounter Home Health Visit - Care Plan Visit Details Visit Type -SN Home Visit Discipline -Detention Problems Problem Description Start Date Status Goals Interventions Homebound Status Disciplines: Skilled Disciplines Patient's homebound status 12/25/2021 Active 1 goal linked to scheduled/docume nted intervention 1 goal intervention scheduled/documen bruno in this visit Monitor patient's vital signs every home health visit Disciplines: SN, PT, OT, RENAL NURSE, SDET, Skilled Disciplines Monitor patient's vital signs every [...] visit during episode of care Description: Home assessment clinician to measure vital signs during every [...] concerns Goal:Demonstrate use of safety precautions Completed Instructed patient/caregiver in methods to prevent falls. Patient and caregiver verbalized understanding. Assess safety Description: Assess patient safety Problem:Safety concerns Goal:Demonstrate use of safety precautions Completed safety assessed Instruct on the prevention of deep vein thrombosis Description: Instruct patient/caregiver on signs and symptoms, preventative measures related to DVT, and provide ongoing home support based on patient needs Problem:DVT Prevention and Management Goal:Demonstrate knowledge of anticoagulant therapy Completed Instructed patient/caregiver on signs and symptoms, preventative measures related to DVT, and provide ongoing home support based on patient needs. Patient and caregiver verbalized understanding. Instruct on pain management techniques Description: Instruct in pharmacologic and nonpharmacologic pain management techniques. Problem:Pain Goal:Report that pain has been reduced or controlled Completed Instructed in pharmacologic and nonpharmacologic pain management techniques. Patient and caregiver verbalized understanding. Skilled assessment wound Description: Full wound assessment including measurement weekly. Wound assessment each visit Problem:Wound Care Goal:Progression towards healing Completed Perform dressing change Description: Perform dressing change: Site #5 left heel , Skilled Nurse, Caregiver or Patient to leave open to air and float heels. Problem:Wound Care Goal:Progression towards healing Completed kept wound open to air, Instructed to keep left heel off pressure Instruct Hand Washing Description: Instruct patient/caregiver on hand wash technique Problem:Wound Risk of Infection Goal:Knowledgeable of infection Completed Instructed patient/caregiver on hand wash technique. Patient and caregiver verbalized understanding. Instruct on the signs and symptoms of infection Description: Assess wound with each visit for s/sx of infection Problem:Wound Risk of Infection Goal:Knowledgeable of infection Completed Assessed wound with each visit for s/sx of infection. documented in this encounter Care Teams Continuous Mining Operator Relationship Specialty Start Date End Date Cherelle Corcoran MD PCP - General Family Medicine 08/30/19 Mark Queen MD Consulting Physician Infectious Diseases 01/10/20 documented as of this encounter
--- OUTSIDE RECORDS SUMMARY | 2024-07-04 04:15 | XMS_ITS | Encounter Summary ---
Author Organization [facility] Address [address] [place] [address] Care Team Providers Care Room Server Name Role Phone Cherelle Corcoran MD Primary Care Pro vider Mark Queen MD Unavailable [phone] Sarahy Schmidt LPN Unavailable [phone] Encounter Details Date Type Department Care Team (Late st Contact Info) Description 12/12/2021 Telephone [facility] Specialty Services [address] [place] [address] Dana Perkins RN Social History Tobacco Use Types Packs/Day [...] do you attend chur or restorationism services? Never 09/10/2021 Do you [...] on file Legal Sex Female 9:03 AM COUGAR HUNTER Gender Identity Female 02/08/2020 6:39 PM CDT Sexual Orientation Not on file documented as of this encounter Miscellaneous Notes * Telephone Encounter - Dana Perkins RN - 12/12/2021 9:19 AM CDT Attempted to call pt regarding GI procedure. Voicemail box full and unable to leave message. documented in this encounter Plan of Treatment Upcoming Encounters Date Type Department Care Team (Latest Contact Info) Description 07/13/2024 9:00 AM COUGAR HUNTER Hospital Encounter [facility] [address] [place] [address] Jaya Grier MD [facility] [address] GA[address]ES [address] [place] [address] 07/13/2024 9:00 AM COUGAR HUNTER - 07/13/2024 9:30 AM COUGAR HUNTER Surgery [facility] [address] [place] [address] Jaya Grier MD [facility] [address] GAIN[address] [place] [address] ESOPHAGOGASTRODUODENOSCOPY Scheduled Procedures Name Priority Associated Diagnoses Date/Ti wy ESOPHAGOGASTRODUODENOSCOPY Anemia, unspecified type Gastritis without bleeding, unspecified chronicity, unspecified gastritis type 07/13/2024 9:00 AM COUGAR HUNTER COLONOSCOPY Iron deficiency anemia due to chronic blood loss documented as of this encounter Visit Diagnoses Not on filedocumented in this encounter Additional Health Concerns Infection Onset Date Last Indicated Resolved Time COVID: Recovered Comment:Added based on recent COVID infection. 08/24/2021 08/26/2021 12/22/2021 3:05 AM C DT documented as of this encounter Care Teams Room Server Relationship Specialty Start Date End Date Cehrelle Corcoran MD PCP - General Family Medicine 08/30/19 Mark Queen MD Consulting Physician Infectious Diseases 01/10/20 Sarahy Schmidt, HHA [address] [place] [address] [address] [place] [address] ACO Care Maintenance Service Technician 11/27/21 12/25/21 documented as of this encounter
--- OUTSIDE RECORDS SUMMARY | 2024-07-04 04:15 | XMS_ITS | Encounter Summary ---
Author Organization [facility] Address [address] [place] [address] Care Team Providers Care Accounts Payable Professional Name Role Phone Cherelle Corcoran MD Primary Care Pro vider Mark Queen MD Unavailable [phone] Encounter Details Date Type Department Care Team (Late st Contact Info) Description 12/27/2021 Telephone [facility] Accountable Care Organization [address] [place] [address] Sussy Stoddard, ALIREZA [address] [place] [address] [address] [place] [address] Social History Tobacco Use Types Packs/Day Years [...] do you attend chur or yarsani services? Never 09/10/2021 Do you [...] file Legal Sex Female 9:03 AM INDUSTRIAL SALES MANAGER Gender Identity Female 02/08/2020 6:39 PM CDT Sexual Orientation Not on file documented as of this encounter Plan of Treatment Upcoming Encounters Date Type Department Care Team (Latest Contact Info) Description 07/13/2024 9:00 AM INDUSTRIAL SALES MANAGER Hospital Encounter [facility] [address] [place] [address] Jaya Grier MD [address] [facility] [address] GA[address] [place] [phone] 07/13/2024 9:00 AM INDUSTRIAL SALES MANAGER - 07/13/2024 9:30 AM INDUSTRIAL SALES MANAGER Surgery [facility] [address] [place] [address] Jaya Grier MD [address] [facility] [address] [place] [address] ESOPHAGOGASTRODUODENOSCOPY Scheduled Procedures Name Priority Associated Diagnoses Date/Ti me ESOPHAGOGASTRODUODENOSCOPY Anemia, unspecified type Gastritis without bleeding, unspecified chronicity, unspecified gastritis type 07/13/2024 9:00 AM INDUSTRIAL SALES MANAGER COLONOSCOPY Iron deficiency anemia due to chronic blood loss documented as of this encounter Visit Diagnoses Not on filedocumented in this encounter Care Teams Accounts Payable Professional Relationship Specialty Start Date End Date Cherelle Corcoran MD PCP - General Family Medicine 08/30/19 Mark Queen MD Consulting Physician Infectious Diseases 01/10/20 documented as of this encounter
--- OUTSIDE RECORDS SUMMARY | 2024-07-04 04:15 | XMS_ITS | Encounter Summary ---
Author Organization [facility] Address [address] [place] [address] Care Team Providers Care Cement And Concrete Plant Worker Name Role Phone Cherelle Corcoran MD Primary Care Pro vider Mark Queen MD Unavailable [phone] Sarahy Schmidt PARACHUTE MENDER Unavailable Reason for Visit * Reason Comments Hypertension Hyperlipidemia Follow-up hospital Encounter Details Date Type Department Care Team (Late st Contact Info) Description 12/18/2021 1:30 PM CDT Office Visit [facility] Cardiology [address] [place] [address] Santo Vail MD [address] [facility] [address] [place] [address] Essential hypertension (Primary Dx); Anemia, unspecified type Social History Tobacco Use Types [...] file Legal Sex Female 9:03 AM SENIOR INVESTMENT MANAGER Gender Identity Female 02/08/2020 6:39 PM CDT Sexual Orientation Not on file documented as of this encounter Last Filed Vital Signs Vital Sign Reading Time Taken Comments Blood Pressure 138/75 12/18/2021 2:06 PM CDT Pulse 72 12/18/2021 1:45 PM CDT Temperature - - Respiratory Rate - - Oxygen Saturation 93% 12/18/2021 1:45 PM CDT Inhaled Oxygen Concentration - - Weight 64.9 kg (143 lb) 12/18/2021 1:45 PM CDT Height 157.5 cm (5' 2 ) 12/18/2021 1:45 PM CDT Body Mass Index 26.16 12/18/2021 1:45 PM CDT documented in this encounter Progress Notes * Santo Vail MD - 12/18/2021 1:30 PM CDT Images from the original note were not included. Cardiology Return Clinic Visit HPI: We are seeing Barbara Chakraborty in clinic today for initial office visit. Patient is a 71 y.o. female with past medical history notable for diabetes and hypertension now presenting to [facility] care. She has been having [...] and generalized weakness. Also recent hospitalization at [facility] with pneumonia. She was also diagnosed with left lower extremity DVT and started on Eliquis. No chest pain or dyspnea. More energy. Review of Systems: 14 point ROS was discussed with the patient and is negative except as noted in the history of present illness. Past Medical History: Diagnosis Date ??? Arthritis ??? Depression ??? Diabetic neuropathy (CMS/HCC) (HCC) ??? Hyperlipidemia ??? Hypertension ??? Schizophrenia (HCC) ??? Type 2 diabetes mellitus (HCC) Past Surgical History: Procedure Laterality Date ??? SECTION Right right foot ??? TOE AMPUTATION Right 01/06/2020 4th toe amp/ foot debridement/ Dr. Anat Pelayo Current Outpatient Medications: ??? acetaminophen, 650 mg, oral, Q6H PRN ??? albuterol HFA, 2 puff, inhalation, Q4H PRN ??? apixaban, 5 mg, Q12H ??? atorvastatin, 40 mg, oral, Daily ??? BD Arlyn 2nd Gen Pen Needle, USE TO INJECT BASAGLAR EVERY NIGHT AT BEDTIME ??? benzonatate, 100 mg, oral, TID PRN ??? blood pressure monitor, Check BP as instructed ??? capsaicin, Apply topically 2 (two) times a day (Patient not taking: Reported on 10/16/2021) ??? carvediloL, 3.125 mg, oral, BID with meals (bkfst, dinner) ??? conner.stocking,thigh,reg,med, Wear as much as possible ??? Trulicity, 0.75 mg, subcutaneous, Weekly ??? famotidine, 20 mg, oral, Daily ??? ferrous sulfate, 65 mg of elemental iron, oral, Daily with breakfast ??? FreeStyle Madhav 2 [place], Use to continually monitor glucose ??? FreeStyle Madhav 2 Sensor, Use to continually monitor glucose, change every 14 days ??? furosemide, 40 mg, oral, BID ??? guaiFENesin ER, 1,200 mg, oral, BID ??? insulin glargine, 25 Units, subcutaneous, Nightly ??? insulin lispro, 0-10 Units, subcutaneous, TID with meals ??? lancets, Check blood sugar up to 3 times a day ??? lidocaine, 1 patch, transdermal, Daily ??? Blood Pressure Cuff, Use to check blood pressure daily ??? multivitamin with minerals, 1 tablet, oral, Daily (Patient not taking: Reported on 10/16/2021) ??? OneTouch Verio test strips, TEST 3 TO 4 TIMES DAILY ??? polyethylene glycol, 17 g, oral, Daily (Patient not taking: Reported on 10/16/2021) ??? pregabalin, TAKE 1 CAPSULE(150 MG) BY MOUTH EVERY NIGHT ??? risperiDONE, 2 mg, oral, Nightly ??? syringe with needle, insulin (INSULIN SYRINGE-NEEDLE U-100 MISC), 3 times a day No Known Allergies Social History Tobacco Use ??? Smoking status: Never Smoker ??? Smokeless tobacco: Never Used Substance Use Topics ??? Alcohol use: Not Currently Family History Problem Relation Age of Onset ??? Stomach cancer Father Physical Exam: There were no vitals taken for this visit. General: Pleasant female in no acute distress. [...] Review: Sodium Date Value Ref Range Status 11/25/2021 141 135 - 145 mmol/L Final 11/18/2021 142 135 - 145 mmol/L Final 11/15/2021 136 135 - 145 mmol/L Final Potassium, pl Date Value Ref Range Status 11/25/2021 4.1 3.3 - 4.9 mmol/L Final 11/18/2021 5.0 (H) 3.3 - 4.9 mmol/L Final 11/15/2021 5.0 (H) 3.3 - 4.9 mmol/L Final Chloride Date Value Ref Range Status 11/25/2021 112 (H) 97 - 110 mmol/L Final 11/18/2021 107 97 - 110 mmol/L Final 11/15/2021 103 97 - 110 mmol/L Final CO2 Date Value Ref Range Status 11/25/2021 21 (L) 22 - 32 mmol/L Final 11/18/2021 25 22 - 32 mmol/L Final 11/15/2021 24 22 - 32 mmol/L Final BUN Date Value Ref Range Status 11/25/2021 63 (H) 8 - 25 mg/dL Final 11/18/2021 65 (H) 8 - 25 mg/dL Final 11/15/2021 72 (H) 8 - 25 mg/dL Final Creatinine Date Value Ref Range Status 11/25/2021 1.82 (H) 0.60 - 1.10 mg/dL Final 11/18/2021 2.00 (H) 0.60 - 1.10 mg/dL Final 11/15/2021 2.15 (H) 0.60 - 1.10 mg/dL Final eGFR Date Value Ref Range Status 11/25/2021 29 (L) 90 - 130 mL/min/1.73 m2 Final [...] Current interpretive data was last reviewed 2021. 11/18/2021 26 (L) 90 - 130 mL/min/1.73 m2 Final [...] Current interpretive data was last reviewed 2021. 11/15/2021 24 (L) 90 - 130 mL/min/1.73 m2 Final [...] Glucose, POC Date Value Ref Range Status 11/26/2021 165 70 - 199 mg/dL Final Alk phos Date Value Ref Range Status 11/15/2021 104 40 - 130 Units/L Final 09/06/2021 134 (H) 40 - 130 Units/L Final Comment: Testing performed by: [address] [address] 08/07/2021 118 40 - 130 Units/L Final Bilirubin, total Date Value Ref Range Status 11/15/2021 0.2 0.1 - 1.2 mg/dL Final 09/06/2021 0.2 0.1 - 1.2 mg/dL Final Comment: Testing performed by: [address] [id number] 08/07/2021 0.2 0.1 - 1.2 mg/dL Final Bilirubin, direct Date Value Ref Range Status 08/07/2021 <0.2 0.1 - 0.3 mg/dL Final Albumin Date Value Ref Range Status 11/15/2021 3.5 3.5 - 5.0 g/dL Final 09/12/2021 3.2 (L) 3.5 - 5.0 g/dL Final 09/06/2021 3.6 3.5 - 5.0 g/dL Final Comment: Testing performed by: [facility], [address] [place] [address]., [id number] ALT Date Value Ref Range Status 11/15/2021 19 7 - 45 Units/L Final 09/06/2021 17 7 - 45 Units/L Final Comment: Testing performed by: [address] [id number] 08/07/2021 32 7 - 45 Units/L Final AST Date Value Ref Range Status 11/15/2021 25 10 - 45 Units/L Final 09/06/2021 17 10 - 45 Units/L Final Comment: Testing performed by: [address] [address] 08/07/2021 21 10 - 45 Units/L Final TSH Date Value Ref Range Status 09/02/2021 1.52 0.30 - 4.20 mcIUnit/mL Final Comment: Testing performed by: [address] [address] 02/07/2021 1.54 0.30 - 4.20 mcIUnit/mL Final Comment: Testing performed by: [address] [address] TSH W REFLEX TO FT4 Date Value [...] on 2018. Testing performed by: [facility], [address] [place] [address]., [id number] 04/02/2020 211 (H) 0 - 199 mg/dL [...] last revised on 2018. Testing performed by: [address] [address] 04/02/2020 123 0 - 149 mg/dL Final [...] last revised on 2018. Testing performed by: [address] [address] LDL, calculated Date Value Ref Range Status [...] on 2018. Testing performed by: [facility], [address] [place] [address]., [address] LDL Cholesterol, Calc Date Value Ref Range [...] 0-125 pg/mL >74 years: 0-450 pg/mL Method: [employer] technology Assessement and Plan -hypertension. She is on Coreg 3.125 b.i.d., Lasix 40 mg b.i.d. -hyperlipidemia. She is on atorvastatin 40 mg daily. Most recent lipids August 2021 looked good, most recent LDL is 20. Continue. -left lower extremity DVT. She is on Eliquis 5 mg twice daily. -DM2. She is managed by primary care physician. On Jardiance in addition to her other medications, which is a good choice for cardiac risk modification. -CKD 3. Sees Dr Ryan. Cr 1.8 most recently. -Cardiac Risk Reduction: I have discussed with the patient the importance of healthy diet and regular exercise. Continue ASA. -schizophrenia Plan: -get current medication list from facility -get vital signs from facility -BMP, CBC today -3 mo Cardiac Testing: TTE 12/2019 normal EF, normal diastolic function, no valvular disease We appreciate the opportunity to take care of Barbara Chakraborty. Please do not hesitate to call us if you have any questions or concerns. Sincerely yours, Santo Vail MD documented in this encounter Plan of Treatment Upcoming Encounters Date Type Department Care Team (Latest Contact Info) Description 07/13/2024 9:00 AM SENIOR INVESTMENT MANAGER Hospital Encounter [facility] GI Lab [address] [place] [address] Jaya Grier MD [address] [place] [address] DR GAINES [address] [place] [address] 07/13/2024 9:00 AM SENIOR INVESTMENT MANAGER - 07/13/2024 9:30 AM SENIOR INVESTMENT MANAGER Surgery [facility] GI Lab [address] [place] [address] Jaya Grier MD [address] [place] [address] DR GAINES [address] [place] [address] ESOPHAGOGASTRODUODENOSCOPY Scheduled Procedures Name Priority Associated Diagnoses Date/Ti nc ESOPHAGOGASTRODUODENOSCOPY Anemia, unspecified type Gastritis without bleeding, unspecified chronicity, unspecified gastritis type 07/13/2024 9:00 AM SENIOR INVESTMENT MANAGER COLONOSCOPY Iron deficiency anemia due to chronic blood loss documented as of this encounter Results * (ABNORMAL) CBC with auto differential (12/18/2021 2:55 PM CDT) WBC 9.4 3.8 - 9.9 K/cumm NILSA RODRIGES Comment:Testing performed by : [facility], [address] [place] [address]., [address] Hgb 9.3(L) 11.9 - 15.5 g/dL NILSA Comment:Testing performed by : [address] [address] Hct 30.0(L) 35.6 - 45.5 % CERELLEN Comment:Testing performed by : [address] [address] Plt 248 150 - 400 K/cumm NILSA Comment:Testing performed by : [address] [address] MPV 11.4 9.1 - 12.3 fL CERELLEN Comment:Testing performed by : [address], [address] RBC 3.30(L) 3.90 - 5.20 M/cumm NILSA Comment:Testing performed by : [address], [address] MCV 90.9 81.3 - 96.4 fL NILSA Comment:Testing performed by : [address] [address] MCH 28.2 27.1 - 33.3 pg CERELLEN Comment:Testing performed by : [address] [address] MCHC 31.0(L) 32.3 - 35.7 g/dL NILSA Comment:Testing performed by : [address] [address] RDW CV 16.0(H) 11.1 - 14.9 % NILSA Comment:Testing performed by : [address] [address] RDW SD 52.6(H) 35.7 - 48.1 fL NILSA Comment:Testing performed by : [address] [address] NRBC abs 0.00 0.00 - 0.01 K/cumm NILSA Comment:Testing performed by : [address], [address] Blood 12/18/2021 2:55 PM CDT 12/18/2021 3:07 PM CDT us Santo Vail MD LAB BLOOD ORDERABLES [facility] Result NILSA [address] [facility] [place] [address] * (ABNORMAL) Basic metabolic panel (12/18/2021 2:55 PM CDT) Pathologist [facility] Sodium 137 135 - 145 mmol/L NILSA Comment:Testing performed by : [address] [address] Potassium, pl 5.5(H) 3.3 - 4.9 mmol/L NILSA Comment:Testing performed by : [address] [address] Chloride 103 97 - 110 mmol/L NILSA Comment:Testing performed by : [address] [address] CO2 20(L) 22 - 32 mmol/L NILSA Comment:Testing performed by : [address] [address] Anion gap 14 2 - 15 mmol/L NILSA Comment:Testing performed by : [address] [address] BUN 63(H) 8 - 25 mg/dL NILSA Comment:Testing performed by : [address] [address] Creatinine 2.00(H) 0.60 - 1.10 mg/dL NILSA Comment:Testing performed by : [address] [address] Glucose 356(H) 70 - 199 mg/dL NILSA Comment: Interpretive [...] was last revised 2017. Testing performed by: [facility], [address] [place] [address]., [address] Calcium 9.5 8.5 - 10.3 mg/dL NILSA RODRIGES Comment:Testing performed by : [facility], [address] [place] [address]., [address] Blood 12/18/2021 2:55 PM CDT 12/18/2021 3:09 PM CDT us Santo Vail MD LAB BLOOD ORDERABLES [facility] Result NILSA RODRIGES [address] [facility] [place] [address] documented in this encounter Visit Diagnoses Diagnosis Essential hypertension- Primary Unspecified essential hypertension Anemia, unspecified type Anemia, unspecified type Gastritis without bleeding, unspecified chronicity, unspecified gastritis type documented in this encounter Additional Health Concerns Infection Onset Date Last Indicated Resolved Time COVID: Recovered Comment:Added based on recent COVID infection. 08/24/2021 08/26/2021 12/22/2021 3:05 AM C DT documented as of this encounter Care Teams Cement And Concrete Plant Worker Relationship Specialty Start Date End Date Cherelle Corcoran MD PCP - General Family Medicine 08/30/19 Mark Queen MD Consulting Physician Infectious Diseases 01/10/20 Sarahy Schmidt, PARACHUTE MENDER [address] [place] [address] [address] [place] [address] ACO Care Engineering Laboratory Technician 11/27/21 12/25/21 documented as of this encounter
--- OUTSIDE RECORDS SUMMARY | 2024-07-04 04:15 | XMS_ITS | Encounter Summary ---
Author Organization [facility] Address [address] [place] [address] Care Team Providers Care Woodworking Machine Operator Name Role Phone Cherelle Corcoran MD Primary Care Pro vider Mark Queen MD Unavailable [phone] Encounter Details Date Type Department Care Team (Late st Contact Info) Description 12/26/2021 Telephone [facility] Primary Care [address] [place] [address] Cherelle Corcoran MD [facility] [address] [place] [address] Social History Tobacco Use Types [...] How often do you attend [facility] or jehovah's witness services? Never 09/10/2021 Do you belong to any clubs o r organizations such as jainism groups, unions, fraternal or athletic groups, or [...] on file Legal Sex Female 9:03 AM BAKER BENCH Gender Identity Female 02/08/2020 6:39 PM CDT Sexual Orientation Not on file documented as of this encounter Miscellaneous Notes * Telephone Encounter - Cherelle Corcoran MD - 12/26/2021 2:45 PM CDT Great, thanks * Telephone Encounter - Yoly Elkins LPN - 12/26/2021 2:25 PM CDT Received call from Rita with [facility] Home Care, patient was seen for Start of Care, reports patient looks good, will see patient 1-2 weeks for 5 weeks, and PT and OT will be out to see patient. documented in this encounter Plan of Treatment Upcoming Encounters Date Type Department Care Team (Latest Contact Info) Description 07/13/2024 9:00 AM BAKER BENCH Hospital Encounter [facility] GI Lab [address] [place] [address] Jaya Grier MD [facility] [facility] [address] GAINES [address] [place] [address] 07/13/2024 9:00 AM BAKER BENCH - 07/13/2024 9:30 AM BAKER BENCH Surgery [facility] Lab [address] [place] [address] Jaya Grier MD [address] [facility] [address] GAINES [address] [place] [address] ESOPHAGOGASTRODUODENOSCOPY Scheduled Procedures Name Priority Associated Diagnoses Date/Ti ks ESOPHAGOGASTRODUODENOSCOPY Anemia, unspecified type Gastritis without bleeding, unspecified chronicity, unspecified gastritis type 07/13/2024 9:00 AM BAKER BENCH COLONOSCOPY Iron deficiency anemia due to chronic blood loss documented as of this encounter Visit Diagnoses Not on filedocumented in this encounter Care Teams Woodworking Machine Operator Relationship Specialty Start Date End Date Cherelle Corcoran MD PCP - General Family Medicine 08/30/19 Mark Queen MD Consulting Physician Infectious Diseases 01/10/20 documented as of this encounter
--- OUTSIDE RECORDS SUMMARY | 2024-07-04 04:15 | XMS_ITS | Encounter Summary ---
Author Organization [facility] Address [address] [place] [address] Phone Care Team Providers Care Drawer Hardware Worker Name Role Phone Cherelle Corcoran MD Primary Care Pro vider Mark Queen MD Unavailable [phone] Reason for Visit * Auth/Cert Specialty Diagnoses / Procedures Referred By Maryse lama Referred To Contact Referral ID Status Reason Start Date Expiration Date Visits Re quested Visits Authorized [id number] 1 1 Encounter Details Date Type Department Care Team (Late st Contact Info) Description 12/30/2021 Home Care Visit [facility] Home Health - [address] [place] [address] Tamela Swanson, RN TELEPHONE ENCOUNTER Social History Tobacco Use [...] on file Legal Sex Female 9:03 AM PREPLEATER Gender Identity Female 02/08/2020 6:39 PM CDT Sexual Orientation Not on file documented as of this encounter Plan of Treatment Upcoming Encounters Date Type Department Care Team (Latest Contact Info) Description 07/13/2024 9:00 AM PREPLEATER Hospital Encounter [facility] GI Lab [address] [place] [address] Jaya Grier MD [address] [facility] [address] GA[address] [place] [address] 07/13/2024 9:00 AM PREPLEATER - 07/13/2024 9:30 AM PREPLEATER Surgery [facility] GI Lab [address] [place] [address] Jaya Grier MD [facility] [address] GAINES [address] [place] [address] ESOPHAGOGASTRODUODENOSCOPY Scheduled Procedures Name Priority Associated Diagnoses Date/Ti me ESOPHAGOGASTRODUODENOSCOPY Anemia, unspecified type Gastritis without bleeding, unspecified chronicity, unspecified gastritis type 07/13/2024 9:00 AM PREPLEATER COLONOSCOPY Iron deficiency anemia due to chronic blood loss documented as of this encounter Visit Diagnoses Not on filedocumented in this encounter Care Teams Drawer Hardware Worker Relationship Specialty Start Date End Date Cherelle Corcoran MD PCP - General Family Medicine 08/30/19 Mark Queen MD Consulting Physician Infectious Diseases 01/10/20 documented as of this encounter
--- OUTSIDE RECORDS SUMMARY | 2024-07-04 04:15 | XMS_ITS | Encounter Summary ---
Author Organization [facility] Address [address] [place] [address] Phone Care Team Providers Care Financial Planner Name Role Phone Cherelle Corcoran MD Primary Care Pro vider Mark Queen MD Unavailable [phone] Sarahy Schmidt UNIVERSAL GRINDER SET UP OPERATOR Unavailable Encounter Details Date Type Department Care Team (Late st Contact Info) Description 12/24/[address] [facility] Home Health - [address] [place] [address] Tamela Swanson, RN TELEPHONE ENCOUNTER Social History [...] week 09/10/2021 How often do you attend [facility] or anabaptism services? Never 09/10/2021 Do you [...] on file Legal Sex Female 9:03 AM SPIRAL WINDING MACHINE HELPER Gender Identity Female 02/08/2020 6:39 PM CDT Sexual Orientation Not on file documented as of this encounter Plan of Treatment Upcoming Encounters Date Type Department Care Team (Latest Contact Info) Description 07/13/2024 9:00 AM SPIRAL WINDING MACHINE HELPER Hospital Encounter [facility] GI Lab [address] [place] [address] Jaya Grier MD [address] [facility] [address] [place] [address] 07/13/2024 9:00 AM SPIRAL WINDING MACHINE HELPER - 07/13/2024 9:30 AM SPIRAL WINDING MACHINE HELPER Surgery [facility] GI Lab [address] [place] [address] Jaya Grier MD [address] [facility] [address] [place] [address] ESOPHAGOGASTRODUODENOSCOPY Scheduled Procedures Name Priority Associated Diagnoses Date/Ti me ESOPHAGOGASTRODUODENOSCOPY Anemia, unspecified type Gastritis without bleeding, unspecified chronicity, unspecified gastritis type 07/13/2024 9:00 AM SPIRAL WINDING MACHINE HELPER COLONOSCOPY Iron deficiency anemia due to chronic blood loss documented as of this encounter Visit Diagnoses Not on filedocumented in this encounter Care Teams Financial Planner Relationship Specialty Start Date End Date Cherelle Corcoran MD PCP - General Family Medicine 08/30/19 Mark Queen MD Consulting Physician Infectious Diseases 01/10/20 Sarahy Schmidt, UNIVERSAL GRINDER SET UP OPERATOR [address] [place] [address] [address] [place] [address] ACO Care Efficiency Expert 11/27/21 12/25/21 documented as of this encounter
--- OUTSIDE RECORDS SUMMARY | 2024-07-04 04:15 | XMS_ITS | Encounter Summary ---
Author Organization [facility] Address [address] [place] [address] Care Team Providers Care Perioperative Assistant Name Role Phone Cherelle Corcoran MD Primary Care Pro vider Mark Queen MD Unavailable [phone] Sarahy Schmidt ELECTROPLATER AUTOMATIC Unavailable Encounter Details Date Type Department Care Team (Late st Contact Info) Description 12/25/2021 Telephone [facility] Primary Care [address] [place] [address] Cherelle Corcoran MD [address] [place] [address] [address] [place] [address] Social History Tobacco Use Types [...] often do you attend chur ch or baptism services? Never 09/10/2021 Do you belong to [...] on file Legal Sex Female 9:03 AM MATHEMATICS IMPROVEMENT TEACHER Gender Identity Female 02/08/2020 6:39 PM CDT Sexual Orientation Not on file documented as of this encounter Miscellaneous Notes * Telephone Encounter - Yoly Elkins LPN - 12/25/2021 3:25 PM CDT JOY Questions: What days were you in the hospital? 11/15/2021-11/26/2021-[facility] 11/26/2021-12/20/2021-[facility] What hospital (or fci facility) were you in? [facility] What was the reason for your hospital stay? Weakness and cough If you were prescribed any new medications in the hospital, do you have any questions or concerns about them (if patient has concerns route message to clinical pool)? No concerns If you were prescribed new medications, were you able to pick them up (if patient will not be able to picker operator the medications, route to clinical pool)? Yes Do you have enough medication to get you to your follow-up appointment (if patient does not have enough medication, route to clinical pool)? Yes Since being released from the hospital do you feel better, the same, or worse (if patient feels worse, route to clinical pool)? Patient still has weakness Date of Transition of Care Appointment: 01/07/2022 Do you have transportation to the appointment? (if patient does not, route to clinical pool) Yes Additional Comments: Medications reviewed. * Telephone Encounter - Yoly Elkins LPN - 12/25/2021 3:13 PM CDT LMOM to call office. * Telephone Encounter - Nikki Vargas - 12/25/2021 1:15 PM CDT Patient's daughter calling to get a JOY for patient who discharged from rehab. CB# [phone], she will be available around 3 pm documented in this encounter Plan of Treatment Upcoming Encounters Date Type Department Care Team (Latest Contact Info) Description 07/13/2024 9:00 AM MATHEMATICS IMPROVEMENT TEACHER Hospital Encounter [facility] GI Lab [address] [place] [address] Jaya Grier MD [address] [place] [address] 07/13/2024 9:00 AM MATHEMATICS IMPROVEMENT TEACHER - 07/13/2024 9:30 AM MATHEMATICS IMPROVEMENT TEACHER Surgery [facility] GI Lab [address] [place] [address] Jaay Grier MD [address] [place] [address] ESOPHAGOGASTRODUODENOSCOPY Scheduled Procedures Name Priority Associated Diagnoses Date/Ti me ESOPHAGOGASTRODUODENOSCOPY Anemia, unspecified type Gastritis without bleeding, unspecified chronicity, unspecified gastritis type 07/13/2024 9:00 AM MATHEMATICS IMPROVEMENT TEACHER COLONOSCOPY Iron deficiency anemia due to chronic blood loss documented as of this encounter Visit Diagnoses Not on filedocumented in this encounter Care Teams Perioperative Assistant Relationship Specialty Start Date End Date Cherelle Corcoran MD PCP - General Family Medicine 08/30/19 Mark Queen MD Consulting Physician Infectious Diseases 01/10/20 Sarahy Schmidt, ELECTROPLATER AUTOMATIC [address] [place] [address] [address] [place] [address] [facility] Md 11/27/21 12/25/21 documented as of this encounter
--- OUTSIDE RECORDS SUMMARY | 2024-07-04 04:15 | XMS_ITS | Encounter Summary ---
Author Organization [facility] Home Care Servic es Address [address] [place] [address] Phone Care Team Providers Care Unhairer Name Role Phone Cherelle Corcoran MD Primary Care Pro vider Mark Queen MD Unavailable [phone]- [phone] Reason for Visit * Auth/Cert Specialty Diagnoses / Procedures Referred By Maryse t Referred To Contact Referral ID Status Reason Start Date Expiration Date Visits Re quested Visits Authorized [id number] 1 1 Encounter Details Date Type Department Care Team (Late st Contact Info) Description 01/02/2022 3:45 AM CDT Home Care Visit [facility] [address] [place] [address] Brigid Keenan RN SN HOME VISIT Social History Tobacco [...] on file Legal Sex Female 9:03 AM MUCK MINER Gender Identity Female 02/08/2020 6:39 PM CDT Sexual Orientation Not on file documented as of this encounter Last Filed Vital Signs Vital Sign Reading Time Taken Comments Blood Pressure 132/64 01/02/2022 1:12 PM CDT Pulse 73 01/02/2022 1:12 PM CDT Temperature 37 ??C (98.6 ??F) 01/02/2022 1:12 PM CDT Respiratory Rate 18 01/02/2022 1:12 PM CDT Oxygen Saturation 98% 01/02/2022 1:12 PM CDT Inhaled Oxygen Concentration - - Weight - - Height - - Body Mass Index - - documented in this encounter Miscellaneous Notes * Case Communication - Anant Kauffman MD - 01/03/2022 9:01 AM CDT Please ask her to record BG before meals and at bedtime cody week. In the mean time increase lantus to 34 units and Humalog to 12 units and add SSI 1:50 for BG > 150 mg/dl * Case Communication - Brigid Keenan RN - 01/02/2022 5:11 PM CDTRvarinder Chakraborty 50 BS log despite recent insulin increase from recent telehealth visit. 01/02/22 12:19 pm 310 11:45 am 317 10:35 am 296 6:27 am 205 3:22 am 199 01/01/22 11:19 pm 215 8:48 pm 184 6:54 pm 158 6:39 pm 201 Patient's family that there has not been any dietary changes and are giving all meds as prescribed. documented in this encounter Plan of Treatment Upcoming Encounters Date Type Department Care Team (Latest Contact Info) Description 07/13/2024 9:00 AM MUCK MINER Hospital Encounter [facility] GI Lab [address] [place] [address] Jaya Grier MD [address] [place] [address] 07/13/2024 9:00 AM MUCK MINER - 07/13/2024 9:30 AM MUCK MINER Surgery [facility] GI Lab [address] [place] [address] Jaya Grier MD [address] [place] [address] ESOPHAGOGASTRODUODENOSCOPY Scheduled Procedures Name Priority Associated Diagnoses Date/Ti me ESOPHAGOGASTRODUODENOSCOPY Anemia, unspecified type Gastritis without bleeding, unspecified chronicity, unspecified gastritis type 07/13/2024 9:00 AM MUCK MINER COLONOSCOPY Iron deficiency anemia due to chronic [...] Medications Disciplines: Halfway Management of home medications 12/25/2021 Active 1 goal linked to scheduled/docume nted intervention 1 goal intervention scheduled/documen bruno in this visit Monitor patient's vital signs every home health visit Disciplines: SN, PT, OT, COMPOSING ROOM SUPERVISOR, SCRAP IRON CUTTER, Skilled Disciplines Monitor patient's vital signs every [...] this visit Disease Management - Diabetes Disciplines: Halfway Management of diabetes symptoms 12/25/2021 Active 1 [...] to physician. Disease Management - Diabetes No Interventions Intervention Associated Problem/Goal Status Variance Visit Notes Homebound Status Description: Patient is homebound due to recent hospitalization for DVT, unsteady gait, poor endurance. Requires assist of walker and 1 person to safely leave the home Problem:Homebound Status Goal:Patient receives care at the most appropriate care setting Completed Patient is homebound due to dvt, unsteady gait, poor endurance Instruct medications Description: Instruct patient/caregiver in medication administration, purpose, dosages, preparation, scheduling, side effects, food/drug interactions, storage, drug allergies, and potential complications. Problem:Medications Goal:Understand and follow medication therapy Completed Medications reviewed and reconciled this visit. Monitor Vital Signs Description: Monitor blood pressure, pulse, oxygen saturation, respirations Problem:Monitor patient's vital signs every home health visit Goal:Measure vital signs during every home health visit during episode of care Completed Educate Family on Infection Prevention Description: Instructed family on signs and symptoms of infection IE: fever, odor, change in color, increased amount of drainage, purulent drainage, warmth. Problem:Infection Prevention Goal:Verbalize signs of infection Completed Grandson reports understanding. Instruct Fall Prevention Description: Instruct patient/caregiver in [...] pain has been reduced or controlled Scheduled Assess Diabetes: Monitor for the presence of skin lesions on the lower extremity Description: Monitor for the presence of skin lesions on the lower extremity. Problem:Disease Management - Diabetes Goal:Verbalize prevention of Diabetic complications Completed No open areas noted at this time documented in this encounter Care Teams Unhairer Relationship Specialty Start Date End Date Cherelle Corcoran MD PCP - General Family Medicine 08/30/19 Mark Queen MD Consulting Physician Infectious Diseases 01/10/20 documented as of this encounter
--- OUTSIDE RECORDS SUMMARY | 2024-07-04 04:15 | XMS_ITS | Encounter Summary ---
Author Organization [facility] Address [address] [facility] [address] [place] [address] Phone Care Team Providers Care Supervisor Mold Cleaning And Storage Name Role Phone Cherelle Corcoran MD Primary Care Pro vider QueenMark Perez MD Unavailable [phone] Reason for Visit * Consultation (Routine) - Closed Specialty Diagnoses / Procedures Referred By Maryse lama Referred To Contact Endocrinology Diagnoses Other diabetic neurological complication associated with type 2 diabetes mellitus (HCC) Type 2 diabetes mellitus with diabetic neuropathy, with long-term current use of insulin (HCC) Cherelle Corcoran MD Phone: tel: fax: Anant Kauffman MD [address] [facility] [id number] [place] [address] Phone: tel: fax: Referral ID Status Reason Start Date Expiration Date V isits Requested Visits Authorized [id number] Closed Specialty Services Required 12/30/2021 01/29/2023 99 99 Encounter Details Date Type Department Care Team (Latest Contact Info) Description 12/30/2021 4:20 PM CDT Telemedicine [facility] Endocrinology Metabolism and Lipid [address] 5[address] [place] [address] [place] [address] Anant Kauffman MD [address] [id number] [place] [address] Hyperlipidemia associated with type 2 diabetes mellitus (HCC) (Primary Dx); Other diabetic neurological complication associated with type 2 diabetes mellitus (HCC); Type 2 diabetes mellitus with diabetic neuropathy, with long-term current use of insulin (CMS/HCC) (HCC); Stage 3b chronic kidney disease (HCC) Social [...] on file Legal Sex Female 9: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 ATTENDANT Gender Identity Female 02/08/2020 6:39 PM CDT Sexual Orientation Not on file documented as of this encounter Patient Instructions * Patient Instructions* Anant Kauffman MD - 12/30/2021 4:20 PM CDT In person 2 months In person documented in this encounter Ordered Prescriptions Prescription Sig Dispense Quantity Refills Last Filled Start Date End Date atorvastatin (LIPITOR) 20 mg tablet Take 1 tablet (20 mg total) by mouth daily 90 tablet 1 12/30/2021 02/19/2022 documented in this encounter Progress Notes * Anant Kauffman MD - 12/30/2021 4:20 PM CDT Endocrine Follow Up Patient Visit Subjective Televisit with 71 y.o. female presenting for follow up of Type II DM . Last seen on HPI: This was a telemedicine visit with Barbara Chakraborty with her daughter which took place via real-time video connection with [employer]. During the visit, I was located in the office and the patient was located at home in the state [facility]. The patient visit started at 4:35 pm and ended at 4:54 pm . My total encounter time on 12/30/2021 was 19 minutes which was spent in [...] a telephone or video visit during the [facility]- public health emergency to the patient. After [...] lantus 15 units and humalog 5 units Current regimen lantus 27 units humalog 8 unit with meals + SSI 2 :50 for BG > 150 mg/dl and Trulicity 0.75 mg/dl ( restarted around 12/04/21) 11/15/21--11/26/21 with cough. Prior to it she was treated for PNA and DVT. Tested positive for metapneumovirus She recently was discharged from SNF She has been checking her BG 3- 4 times . Per her reported Bg FBG- 200s Daytime BG 250--300s She has neuropathy, on lyrica 150 mg Last eye exam 05/2021 , no DR She denied having any low Bg recently Gained 6 lbs since 08/202112/18/21 S Cr 2 08/08/21 S cr 1.72 08/05/21 A1c 8 Alb/creat 1478 02/07/21 Tc 133 Trig 147 HDL 51 LDL 53 TSH 1.54 B 12 684 Vit D 21 Past Medical History: Diagnosis Date ??? Arthritis [...] Age of Onset ??? Stomach cancer Father Review of Systems 12 pt ROS preformed and negative other than what is noted in the HPI Objective Lab/Radiology/Diagnostic Review: Lab Results Component Value Date TSH 1.52 09/02/2021 Lab Results Component Value Date CHOL 84 09/10/2021 TRIG 153 (H) 09/10/2021 HDL 33 (L) 09/10/2021 Lab Results Component Value Date PTH 40 10/16/2021 Assessment/Plan: 71 y old female with PMH of Type II DM, HTN,HDL , mood disorder is here with her daughter for follow up of her Diabetes. Type II Dm Current regimen lantus 27 units humalog 8 unit with meals + SSI 2 :50 for BG > 150 mg/dl and Trulicity 0.75 mg/dl ( restarted around 12/04/21) Her HBA1c 7.5 % . Per her reported Bg readings , her Bg has been high Recommended to increase lantus to 30 units and humalog to 10 units with meals and change SSI 1:50 for Bg > 150 mg/dl. Asked her to come clinic tomorrow for Madhav placement for better BG monitoring. Will adjust her insulin doses based on her madhav data She also has CKD with albuminuria . Used to be on jardiance was stopped 2/2 STEFANO. Will consider restarting jardiance at later date once s creatinine stabilizes UTD with eye exam no Dr 08/05/21 A1c 8 Alb/creat 1478 Neuropathy: On lyrica 150 mg Still symptomatic Will add alpha lipoic acid and vitamin B complex Hyperlipidemia : 02/07/21 Tc 133 Trig 147 HDL 51 LDL 53 09/10/21 Tc 84 Trig 153 HDL 33 LDL 20 On Atorvastatin 40 mg Continue same CKD 12/18/21 S Cr 2 With microalbuminuria Jardiance on hold 07/24 STEFANO Will consider starting low jardiance at later date( once s creatinine is stable) , given its renal protective role Problem List None documented in this encounter Plan of Treatment Upcoming Encounters Date Type Department Care Team (Latest Contact Info) Description 07/13/2024 9:00 AM SPA ATTENDANT Hospital Encounter [facility] GI Lab [address] [place] [address] Jaya Grier MD [address] [place] [address] [address] [place] [address] 07/13/2024 9:00 AM SPA ATTENDANT - 07/13/2024 9:30 AM SPA ATTENDANT Surgery [facility] GI Lab [address] [place] [address] Jaya Grier MD [address] [place] [address] [address] [place] [address] ESOPHAGOGASTRODUODENOSCOPY Scheduled Procedures Name Priority Associated Diagnoses Date/Ti wa ESOPHAGOGASTRODUODENOSCOPY Anemia, unspecified type Gastritis without bleeding, unspecified chronicity, unspecified gastritis type 07/13/2024 9:00 AM SPA ATTENDANT COLONOSCOPY Iron deficiency anemia due to chronic blood loss documented as of this encounter Visit Diagnoses Diagnosis Hyperlipidemia associated with type 2 diabetes mellitus (HCC)- Primary Other diabetic neurological complication associated with type 2 diabetes mellitus (HCC) Type 2 diabetes mellitus with diabetic neuropathy, with long-term current use of insulin (HCC) Stage 3b chronic kidney disease (HCC) Anemia, unspecified type Gastritis without bleeding, unspecified chronicity, unspecified gastritis type documented in this encounter Orders Outpatient Referral Count Last Ordered Date Fir st Ordered Date AMB REFERRAL TO ENDOCRINOLOGY 1 12/30/2021 documented in this encounter Care Teams Supervisor [employer] Cleaning [employer] Relationship Specialty Start Date End Date Cherelle Corcoran MD PCP - General Family Medicine 08/30/19 Mark Queen MD Consulting Physician Infectious Diseases 01/10/20 documented as of this encounter
--- OUTSIDE RECORDS SUMMARY | 2024-07-04 04:15 | XMS_ITS | Encounter Summary ---
Author Organization [facility] Home Care [facility] es Address [address] [place] [address] Phone Care Team Providers Care Tenter Feeder Name Role Phone Cherelle Corcoran MD Primary Care Pro vider Mark Queen MD Unavailable [phone]- [phone] Reason for Visit * Auth/Cert Specialty Diagnoses / Procedures Referred By Maryse t Referred To Contact Referral ID Status Reason Start Date Expiration Date Visits Re quested Visits Authorized [id number] 1 1 Encounter Details Date Type Department Care Team (Latest Contact Info) Description 12/31/2021 1:30 PM CDT Home Care Visit [facility] Home Health [address] [address] [address] [place] [address] Yamilka Hoang, PT PT INITIAL EVALUATION Social History Tobacco [...] slept in a longterm (including now)? No 09/10/2021 Comments No Sex and Gender Information Value Date Recorded Sex Assigned at Not on file Legal Sex Female 9:[address] ENG[address]ERING TEACHER Gender Identity Female 02/08/2020 6:39 PM CDT Sexual Orientation Not on file documented as of this encounter Last Filed Vital Signs Vital Sign Reading Time Taken Comments Blood Pressure 140/66 12/31/2021 2:40 PM CDT Pulse 72 12/31/2021 2:40 PM CDT Temperature 36.3 ??C (97.4 ??F) 12/31/2021 2:40 PM CD T Respiratory Rate 17 12/31/2021 2:40 PM CDT Oxygen Saturation 97% 12/31/2021 2:40 PM CDT Inhaled Oxygen Concentration - - Weight - - Height - - Body Mass Index - - documented in this encounter Miscellaneous Notes * Home Health Visit Narrative - Yamilka Hoang, PT - 12/31/2021 2:15 PM CDT S: Pt is a 71yo F referred to SN, PT, OT svcs following hospitalization at [facility] 11/15 - 11/26 followed by inpt rehab stay, d/t L LE DVT, weakness B: PMH inc DM, neuropathy, dementia, schizoaffective disorder, bipolar disorder, CKD, pulmonary nodule, chronic back pain. Pt lives w her daughter and grandson in single story apt with 3 steps to front entry, without rails. Pt's dtr Ursula has recently had COVID, she plans to return to work tomorrow. She reports pt has 24 hr supervision, multiple family members are able to stay with pt while dtr at [facility]. Pt and cg goals are to improve pt's strength and walking. Pt scheduled to f/up w PCP Dr. Corcoran on 01/07. A: Pt presents w B LE weakness, unsteady gait, balance deficit, requires assist for transfers, limited endurance R: Pt will benefit from PT 1-2x4 weeks for strengthening, transfer training, gait training, steps, balance, HEP instruction. Pt and cg are agreeable to POC. OT is also referred and indicated. documented in this encounter Plan of Treatment Upcoming Encounters Date Type Department Care Team (Latest Contact Info) Description 07/13/2024 9:[address] ENGINEERING TEACHER Hospital Encounter [facility] GI Lab [address] [place] [address] Jaya Grier MD [address] [place] [address] 07/13/2024 9:[address] ENGINEERING TEACHER - 07/13/2024 9:[address] ENGINEERING TEACHER Surgery [facility] GI Lab [address] [place] [address] Jaya Grier MD [address] [place] [address] ESOPHAGOGASTRODUODENOSCOPY Scheduled Procedures Name Priority Associated Diagnoses Date/Ti me ESOPHAGOGASTRODUODENOSCOPY Anemia, unspecified type Gastritis without bleeding, unspecified chronicity, unspecified gastritis type 07/13/2024 9:[address] ENGINEERING TEACHER COLONOSCOPY Iron deficiency anemia due to [...] home health visit Disciplines: SN, PT, OT, STOCK CLIPPER, ORACLE OBIEE DEVELOPER, Skilled Disciplines Monitor patient's vital signs every [...] Therapy Impaired functional mobility 12/31/2021 Active - 4 problem interventions scheduled/maryjo carr in this visit Goals Goal Associated Problem Outcome Goal Met? Visit Notes Patient receives care at the most appropriate care setting Description: Patient receives care at the most appropriate care setting. Homebound Status No Measure vital signs during every home health visit during episode of care Description: Home dragline mechanic to measure vital signs during every [...] pain has been reduced or controlled Completed Home Exercise Program (HEP) Description: Instruct patient/caregiver and perform HEP. Problem:PT Impaired Functional Mobility Completed Instructed pt and cg on initial HEP and performed supine: Ankle pumps, Quad set, Heel slide, Hip abd/add, SAQ x 8 reps ea then SLR x 6 reps Pt req moderate cueing for correct return; constant tactile cueing to engage quads with performing Hip abd, SLR Bilat. Pt tolerates therex well. Pt and cg provided w written instructions for HEP; instructed to perform 2x/day; they verb agreement Gait/Stair Training Description: Instruct patient/caregiver and perform gait/stair training. Problem:PT Impaired Functional Mobility Completed Gait x 20 ft in home using 2WW with CGA to Min (A) Pt w dec lanny, dec step height and length bilat Pt req Min (A) to make 180 degree turn to her L using w/walker. PT recommended pt to amb only w cg assist; pt and dtr verb understanding Bed Mobility/Transfer Training Description: Instruct patient/caregiver and perform bed mobility/transfer training. Problem:PT Impaired Functional Mobility Completed Instructed patient and caregiver on safety with sit <> stand transfers including backing up completely to surface, using w/walker, and reaching back w BUE for support with stand > sit; Instructed on scooting forward to edge of surface and positioning B hands for BUE support to push up with sit > stand. Pt req Min (A) for sit to stand from recliner chair and relies on maximal assist B UE pushing up from arm rests to complete. Pt transfers into bed by 'crawling' onto bed surface kneeling leading w R LE with moderate difficulty / exertion with lifting legs onto bed; Supine to sit with Min (A). PT recommended trial of a bed rail for bed transfers; pt and dtr agreeable Therapeutic Exercise Description: Perform therapeutic exercise, progressing as tolerated. Problem:PT Impaired Functional Mobility Completed See HEP comments documented in this encounter Care Teams Tenter Feeder Relationship Specialty Start Date End Date Cherelle Corcoran MD PCP - General Family Medicine 08/30/19 Mark Queen MD Consulting Physician Infectious Diseases 01/10/20 documented as of this encounter
--- OUTSIDE RECORDS SUMMARY | 2024-07-04 04:15 | XMS_ITS | Encounter Summary ---
Author Organization [facility] Address [address] [place] [address] Care Team Providers Care Police Officer Name Role Phone Cherelle Corcoran MD Primary Care Pro vider Mark Queen MD Unavailable [phone] Sarahy Schmidt LAY OUT DRAFTER Unavailable [phone] Encounter Details Date Type Department Care Team (Late st Contact Info) Description 12/19/2021 Telephone [facility] Primary Care [address] [facility] [address] [place] [address] Cherelle Corcoran MD [address] [place] [address] [address] [place] [address] Social History Tobacco Use Types [...] attend chur ch or oriental orthodox services? Never 09/10/2021 Do you belong [...] on file Legal Sex Female 9:03 AM WIRE BRUSH MAKER Gender Identity Female 02/08/2020 6:39 PM CDT Sexual Orientation Not on file documented as of this encounter Miscellaneous Notes * Telephone Encounter - Tena Roman - 12/19/2021 9:18 AM CDT Verbal order was given to Marva from [facility] for OT, PT and RN FYI documented in this encounter Plan of Treatment Upcoming Encounters Date Type Department Care Team (Latest Contact Info) Description 07/13/2024 9:00 AM WIRE BRUSH MAKER Hospital Encounter [facility] [address] [place] [address] Jaya Grier MD [address] [place] [address] [address] GAINES [address] [place] [address] 07/13/2024 9:00 AM WIRE BRUSH MAKER - 07/13/2024 9:30 AM WIRE BRUSH MAKER Surgery [facility] [address] [place] [address] Jaya Grier MD [address] [place] [address] DR GAINES [address] [place] [address] ESOPHAGOGASTRODUODENOSCOPY Scheduled Procedures Name Priority Associated Diagnoses Date/Ti wi ESOPHAGOGASTRODUODENOSCOPY Anemia, unspecified type Gastritis without bleeding, unspecified chronicity, unspecified gastritis type 07/13/2024 9:00 AM WIRE BRUSH MAKER COLONOSCOPY Iron deficiency anemia due to chronic blood loss documented as of this encounter Visit Diagnoses Not on filedocumented in this encounter Additional Health Concerns Infection Onset Date Last Indicated Resolved Time COVID: Recovered Comment:Added based on recent COVID infection. 08/24/2021 08/26/2021 12/22/2021 3:05 AM C DT documented as of this encounter Care Teams Police Officer Relationship Specialty Start Date End Date Cherelle Corcoran MD PCP - General Family Medicine 08/30/19 Mark Queen MD Consulting Physician Infectious Diseases 01/10/20 Sarahy Schmidt, LAY OUT DRAFTER [address] [place] [address] DR GAINES [address] [place] [address] ACO Care Dispatcher Motor Vehicle 11/27/21 12/25/21 documented as of this encounter
--- OUTSIDE RECORDS SUMMARY | 2024-07-04 04:15 | XMS_ITS | Encounter Summary ---
Author Organization [facility] Address [address] [place] [address] Phone Care Team Providers Care Operational Review Sergeant Name Role Phone Cherelle Corcoran MD Primary Care Pro vider Mark Queen MD Unavailable [phone] Sarahy Schmidt LPN Unavailable [phone] Reason for Visit * Auth/Cert Specialty Diagnoses / Procedures Referred By Maryse t Referred To Contact Referral ID Status Reason Start Date Expiration Date Visits Re quested Visits Authorized [id number] 1 1 Encounter Details Date Type Department Care Team (Late st Contact Info) Description 12/25/2021 Home Care Visit [facility] Home Health [address] [place] [address] Rita Light, ALIREZA CASE COMMUNICATION Social History Tobacco Use Types [...] on file Legal Sex Female 9:03 AM DYNAMICIST Gender Identity Female 02/08/2020 6:39 PM CDT Sexual Orientation Not on file documented as of this encounter Plan of Treatment Upcoming Encounters Date Type Department Care Team (Latest Contact Info) Description 07/13/2024 9:00 AM DYNAMICIST Hospital Encounter [facility] GI Lab [address] [place] [address] Jaya Grier MD [address] [place] [address] 07/13/2024 9:00 AM DYNAMICIST - 07/13/2024 9:30 AM DYNAMICIST Surgery [facility] GI Lab [address] [place] [address] Jaya Grier MD [facility] [facility] [address] [place] [address] ESOPHAGOGASTRODUODENOSCOPY Scheduled Procedures Name Priority Associated Diagnoses Date/Ti me ESOPHAGOGASTRODUODENOSCOPY Anemia, unspecified type Gastritis without bleeding, unspecified chronicity, unspecified gastritis type 07/13/2024 9:00 AM DYNAMICIST COLONOSCOPY Iron deficiency anemia due to chronic blood loss documented as of this encounter Visit Diagnoses Not on filedocumented in this encounter Care Teams Operational Review Sergeant Relationship Specialty Start Date End Date Cherelle Corcoran MD PCP - General Family Medicine 08/30/19 Mark Queen MD Consulting Physician Infectious Diseases 01/10/20 Sarahy Schmidt, ORAL SURGERY ASSISTANT [address] [facility] [facility] [address] [place] [address] ACO Care Procurement Internship 11/27/21 12/25/21 documented as of this encounter
--- OUTSIDE RECORDS SUMMARY | 2024-07-04 04:15 | XMS_ITS | Encounter Summary ---
Author Organization [facility] Address [address] [place] [address] Phone Care Team Providers Care Campus Director Name Role Phone Cherelle Corcoran MD Primary Care Pro vider Mark Queen MD Unavailable [phone] Sarahy Schmidt LPN Unavailable [phone] Reason for Visit * Auth/Cert Specialty Diagnoses / Procedures Referred By Maryse t Referred To Contact Referral ID Status Reason Start Date Expiration Date Visits Re quested Visits Authorized [id number] 1 1 Encounter Details Date Type Department Care Team (Latest Contact Info) Description 12/25/2021 1:00 PM CDT Home Care Visit [facility] Home Health - [address] [place] [address] Rita Light, ALIREZA SN OASIS START OF CARE Social [...] file Legal Sex Female 9:03 AM WOOD TANK ERECTOR Gender Identity Female 02/08/2020 6:39 PM CDT Sexual Orientation Not on file documented as of this encounter Last Filed Vital Signs Vital Sign Reading Time Taken Comments Blood Pressure 142/78 12/25/2021 2:16 PM CDT Pulse 68 12/25/2021 2:16 PM CDT Temperature 36.6 ??C (97.8 ??F) 12/25/2021 2:16 PM CD T Respiratory Rate 16 12/25/2021 2:16 PM CDT Oxygen Saturation 99% 12/25/2021 2:16 PM CDT Inhaled Oxygen Concentration - - Weight 74.4 kg (164 lb) 12/25/2021 2:16 PM CDT Height 157.5 cm (5' 2 ) 12/25/2021 2:16 PM CDT Body Mass Index 30 12/25/2021 2:16 PM CDT documented in this encounter Miscellaneous Notes * Quality Review - Abbie Pickard - 12/25/2021 1:47 PM CDT Select Data Recommendation: M1028 - Comorbidities and Co-existing Conditions ??? Check all that apply See OASIS Guidance Manualfor a complete list of relevant ICD-10 codes Documented Answer: Recommendation: 2 - Diabetes Mellitus M1033 - Risk for Hospitalization: Which of the following signs or symptoms characterize this patient as at risk for hospitalization? Documented Answer: 4 - Multiple emergency department visits (2 or more) in the past 6 months; 5 - Decline in mental, emotional, or behavioral status in the past 3 months; 6 - Reported or observed history of difficulty complying with any medical instructions (for example, medications, diet, exercise) in the past 3 months; 7 - Currently taking 5 or more medications; 8 - Currently reports exhaustion Recommendation: 4 - Multiple emergency department visits (2 or more) in the past 6 months; 5 - Decline in mental, emotional, or behavioral status in the past 3 months; 6 - Reported or observed history of difficulty complying with any medical instructions (for example, medications, diet, exercise) in the past 3 months; 7 - Currently taking 5 or more medications; 8 - Currently reports exhaustion; 9- Other risk(s) not listed in 1 - 8 Comments: Chronic conditions increases risk M1400 - When is the patient dyspneic or noticeably Short of Breath? Documented Answer: 1 - When walking more than 20 feet, climbing stairs Recommendation: 2 - With moderate exertion (for example, while dressing, using commode or bedpan, walking distances less than 20 feet) Comments: Recent PNA w/ COPD, review item Abbie Pickard, 01/01/2022, DPO Chart Review & Recommendations byCarmen Guzman RN, HCS-D * Home Health Plan for Next Visit - Rita Light RN - 12/25/2021 1:47 PM CDT Reason for today's visit Admission to home care Discuss plan of care with patient/spouse and daughter Discharge planning - will discharge when patient is medically stable and knowledgable regarding medications and disease process Plan for next visit - CP, DVT, pain assess. documented in this encounter Plan of Treatment Upcoming Encounters Date Type Department Care Team (Latest Contact Info) Description 07/13/2024 9:00 AM WOOD TANK ERECTOR Hospital Encounter [facility] GI Lab [address] [place] [address] Jaya Grier MD [address] [place] [address] [address] GAINES [address] [place] [address] 07/13/2024 9:00 AM WOOD TANK ERECTOR - 07/13/2024 9:30 AM WOOD TANK ERECTOR Surgery [facility] GI Lab [address] [place] [address] Jaya Grier MD [facility] [address] GA[address] [place] [address] ESOPHAGOGASTRODUODENOSCOPY Scheduled Procedures Name Priority Associated Diagnoses Date/Ti me ESOPHAGOGASTRODUODENOSCOPY Anemia, unspecified type Gastritis without bleeding, unspecified chronicity, unspecified gastritis type 07/13/2024 9:00 AM WOOD TANK ERECTOR COLONOSCOPY Iron deficiency anemia due to chronic blood loss documented as of this encounter Visit Diagnoses Not on filedocumented in this encounter Home Health Visit - Care Plan Visit Details Visit Type -SN OASIS Start o f Care Discipline -Fpc Problems Problem Description Start Date Status Goals Interventions Homebound Status Disciplines: Skilled Disciplines Patient's homebound status 12/25/2021 Active 1 goal linked to scheduled/docume nted intervention 1 goal intervention scheduled/documen bruno in this visit Medications Disciplines: Fpc Management of home medications 12/25/2021 Active 1 goal linked to scheduled/docume nted intervention 2 goal interventions scheduled/documen bruno in this visit Monitor patient's vital signs every home health visit Disciplines: SN, PT, OT, ADMINISTRATIVE ASSISTANT RECEPTIONIST, BARREL RAISER HELPER, Skilled Disciplines Monitor patient's vital signs [...] this visit Disease Management - Diabetes Disciplines: Fpc Management of diabetes symptoms 12/25/2021 Active 1 [...] visit during episode of care Description: Home black leather buffer to measure vital signs during every home [...] Goal:Understand and follow medication therapy Completed Medications reconciled with bottles. Daughter prepares all meds for patient. Instructed on bleeding precautions related to anticoagulant use. Verbalized understanding Instruct on high risk medications Description: Instruct patient/caregiver on high-risk/high-alert medications, including: anti-convulsant, anti-retroviral, anti-coagulant, chemotherapeutic, hypo-glycemic, immunosuppressant, insulin, and opioid. Problem:Medications Goal:Understand and follow medication therapy Completed Teaching High-risk/high-alert medications insulin and eliquis. Monitor Vital Signs Description: Monitor blood pressure, [...] Prevention Goal:Verbalize signs of infection Completed Educate Family on Infection Prevention Description: [...] pain has been reduced or controlled Completed Assess Diabetes: Monitor for the presence of skin lesions on the lower extremity Description: Monitor for the presence of skin lesions on the lower extremity. Problem:Disease Management - Diabetes Goal:Verbalize prevention of Diabetic complications Completed Assess Diabetes: Knowledge Deficit Description: Assess for knowledge deficit of diabetes management Problem:Disease Management - Diabetes Goal:Verbalize prevention of Diabetic complications Completed Educate on foot care Description: Educate patient/caregiver on proper foot care. Problem:Disease Management - Diabetes Goal:Verbalize prevention of Diabetic complications Completed documented in this encounter Care Teams Campus Director Relationship Specialty Start Date End Date Cherelle Corcoran MD PCP - General Family Medicine 08/30/19 Mark Queen MD Consulting Physician Infectious Diseases 01/10/20 Sarahy Schmidt, CARTRIDGE GAUGER [address] [place] [address] [address] [place] [address] ACO Care Metalsmith 11/27/21 12/25/21 documented as of this encounter
--- OUTSIDE RECORDS SUMMARY | 2024-07-04 04:15 | XMS_ITS | Encounter Summary ---
Author Organization [facility] Address [address] [place] [address] Phone Care Team Providers Care Secondary Market Manager Name Role Phone Cherelle Corcoran MD Primary Care Pro vider Mark Queen MD Unavailable [phone] Sarahy Schmidt LPN Unavailable Encounter Details Date Type Department Care Team (Late st Contact Info) Description 12/22/2021 Home Care Visit [facility] Home Health [address] [place] [address] Diane Calderón RN TELEPHONE ENCOUNTER Social History [...] How often do you attend chur or shinto services? Never 09/10/2021 Do you [...] on file Legal Sex Female 9:03 AM TERRAZZO JOURNEYMAN Gender Identity Female 02/08/2020 6:39 PM CDT Sexual Orientation Not on file documented as of this encounter Plan of Treatment Upcoming Encounters Date Type Department Care Team (Latest Contact Info) Description 07/13/2024 9:00 AM TERRAZZO JOURNEYMAN Hospital Encounter [facility] GI Lab [address] [place] [address] Jaya Grier MD [address] [facility] [address] [place] [address] 07/13/2024 9:00 AM TERRAZZO JOURNEYMAN - 07/13/2024 9:30 AM TERRAZZO JOURNEYMAN Surgery [facility] GI Lab [address] [place] [address] Jaya Grier MD [address] [facility] [address] [place] [address] ESOPHAGOGASTRODUODENOSCOPY Scheduled Procedures Name Priority Associated Diagnoses Date/Ti me ESOPHAGOGASTRODUODENOSCOPY Anemia, unspecified type Gastritis without bleeding, unspecified chronicity, unspecified gastritis type 07/13/2024 9:00 AM TERRAZZO JOURNEYMAN COLONOSCOPY Iron deficiency anemia due to chronic blood loss documented as of this encounter Visit Diagnoses Not on filedocumented in this encounter Additional Health Concerns Infection Onset Date Last Indicated Resolved Time COVID: Recovered Comment:Added based on recent COVID infection. 08/24/2021 08/26/2021 12/22/2021 3:05 AM C DT documented as of this encounter Care Teams Secondary Market Manager Relationship Specialty Start Date End Date Cherelle Corcoran MD PCP - General Family Medicine 08/30/19 Mark Queen MD Consulting Physician Infectious Diseases 01/10/20 Sarahy Schmidt, EYEGLASS FRAME TRUER [address] [facility] [address] [place] [address] ACO Care Fire Alarm Mechanic 11/27/21 12/25/21 documented as of this encounter
--- OUTSIDE RECORDS SUMMARY | 2024-07-04 04:15 | XMS_ITS | Encounter Summary ---
Author Organization [facility] Address [address] [place] [address] Phone Care Team Providers Care Straw Hat Brim Raiser Operator Name Role Phone Cherelle Corcoran MD Primary Care Pro vider Mark Queen MD Unavailable [phone] Sarahy Schmidt LPN Unavailable Encounter Details Date Type Department Care Team (Late st Contact Info) Description 12/25/2021 Plan of Care Documentation [facility] Home Health [address] [place] [address] Social History Tobacco Use Types [...] How often do you attend chur or yazdanism services? Never 09/10/2021 Do you belong to [...] file Legal Sex Female 9:03 AM HEAD BANDER AND LINER OPERATOR Gender Identity Female 02/08/2020 6:39 PM CDT Sexual Orientation Not on file documented as of this encounter Plan of Treatment Upcoming Encounters Date Type Department Care Team (Latest Contact Info) Description 07/13/2024 9:00 AM HEAD BANDER AND LINER OPERATOR Hospital Encounter [facility] GI Lab [address] [place] [address] Jaya Grier MD [address] [facility] [address] [place] [address] 07/13/2024 9:00 AM HEAD BANDER AND LINER OPERATOR - 07/13/2024 9:30 AM HEAD BANDER AND LINER OPERATOR Surgery [facility] GI Lab [address] [place] [address] Jaya Grier MD [address] [facility] [address] [place] [address] ESOPHAGOGASTRODUODENOSCOPY Scheduled Procedures Name Priority Associated Diagnoses Date/Ti ak ESOPHAGOGASTRODUODENOSCOPY Anemia, unspecified type Gastritis without bleeding, unspecified chronicity, unspecified gastritis type 07/13/2024 9:00 AM HEAD BANDER AND LINER OPERATOR COLONOSCOPY Iron deficiency anemia due to chronic blood loss documented as of this encounter Visit Diagnoses Not on filedocumented in this encounter Care Teams Straw Hat Brim Raiser Operator Relationship Specialty Start Date End Date Cherelle Corcoran MD PCP - General Family Medicine 08/30/19 Mark Queen MD Consulting Physician Infectious Diseases 01/10/20 Sarahy Schmidt, PERCHER [address] [place] [address] [address] [place] [address] ACO Care Microstrategy Developer 11/27/21 12/25/21 documented as of this encounter
--- OUTSIDE RECORDS SUMMARY | 2024-07-04 04:15 | XMS_ITS | Encounter Summary ---
Author Organization [facility] Address [address] [place] [address] Care Team Providers Care Batch Dumper Name Role Phone Cherelle Corcoran MD Primary Care Pro vider Mark Queen MD Unavailable [phone] Sarahy Schmidt LPN Unavailable Encounter Details Date Type Department Care Team (Late st Contact Info) Description 12/18/2021 2:40 PM CDT Lab [facility] Lab [address] [place] [address] [id number] Anemia, unspecified type; Essential hypertension; Stage 3b chronic kidney disease (HCC); Anemia [...] week 09/10/2021 [facility]? Never 09/10/2021 Do you [...] on file Legal Sex Female 9:03 AM COIN MACHINE COLLECTOR Gender Identity Female 02/08/2020 6:39 PM CDT Sexual Orientation Not on file documented as of this encounter Plan of Treatment Upcoming Encounters Date Type Department Care Team (Latest Contact Info) Description 07/13/2024 9:00 AM COIN MACHINE COLLECTOR Hospital Encounter [facility] GI Lab [address] [place] [address] Jaya Grier MD [address] [facility] [address] [place] [address] 07/13/2024 9:00 AM COIN MACHINE COLLECTOR - 07/13/2024 9:30 AM COIN MACHINE COLLECTOR Surgery [facility] GI Lab [address] [place] [address] Jaya Grier MD [address] [facility] [address] [place] [address] ESOPHAGOGASTRODUODENOSCOPY Scheduled Procedures Name Priority Associated Diagnoses Date/Ti me ESOPHAGOGASTRODUODENOSCOPY Anemia, unspecified type Gastritis without bleeding, unspecified chronicity, unspecified gastritis type 07/13/2024 9:00 AM COIN MACHINE COLLECTOR COLONOSCOPY Iron deficiency anemia due to chronic blood loss documented as of this encounter Procedures Procedure Name Priority Date/Time Associated Diagnosis Comments IRON PROFILE W/ IBC Routine 12/18/2021 2 :56 PM CDT Stage 3b chronic kidney disease (HCC) Anemia in stage 3b chronic kidney disease (HCC) EGFR Routine 12/18/2021 2:55 PM CDT Essential hypertension DIFFERENTIAL AUTO Routine 12/18/2021 2:5 5 PM CDT Anemia, unspecified type CBC WITH AUTO DIFFERENTIAL Routine 12/18/2021 2:55 PM CDT Anemia, unspecified type BASIC METABOLIC PANEL Routine 12/18/2021 2:55 PM CDT Essential hypertension documented in this encounter Results * (ABNORMAL) Iron profile w/ IBC (12/18/2021 2:56 PM CDT) Pathologist [facility] Iron 69 35 - 145 mcg/dL NILSA Comment:Testing performed by : [facility], [address] [place] [address]., [address] TIBC 217(L) 250 - 400 mcg/dL NILSA Comment:Testing performed by : [facility], [address] [place] [address]., [address] Transferrin saturation 32 20 - 50 % NILSA Comment:Testing performed by : [address] [address] Blood 12/18/2021 2:56 PM CDT 12/18/2021 3:09 PM CDT us Markie Ryan MD LAB BLOOD ORDERABLES Final Re sult [facility] [address] [facility] [place] [address] * eGFR (12/18/2021 2:55 PM CDT) Pathologist [facility] eGFR 26 mL/min/1. 73 m2 NILSA Comment: [...] Inclusion of Race in Diagnosing Kidney Disease, EASTON 2020). The CKD-EPI equation should not be used for patients with unstable renal function and has not been validated in children and those over 70. Current interpretive data was last reviewed 2021. Testing performed by: [facility], [address] [place] [address]., [address] Blood 12/18/2021 2:55 PM CDT 12/18/2021 3:09 PM CDT Santo Vail MD LAB BLOOD ORDERABLES Blessing deanne Result [facility] [address] [facility] [place] [address] * Differential, auto (12/18/2021 2:55 PM CDT) Neutrophil abs 5.9 1.7 - 6.5 K/cumm NILSA Comment:Testing performed by : [address] [address] Imm gran abs 0.0 0.0 - 0.1 K/cumm NILSA Comment:Testing performed by : [address] [address] Lymphocyte abs 2.6 0.8 - 3.3 K/cumm NILSA Comment:Testing performed by : [address] [address] Monocyte abs 0.7 0.2 - 0.8 K/cumm NILSA Comment:Testing performed by : [address] [address] Eosinophil abs 0.1 0.0 - 0.5 K/cumm NILSA Comment:Testing performed by : [address] [address] Basophil abs 0.0 0.0 - 0.1 K/cumm NILSA Comment:Testing performed by : [address] [address] Neutrophil pct 62.7 % NILSA Comment: Interpretive Data Percent cell count reference ranges are not reported, since discordance with absolute values may lead to misinterpretation of CBC data. Current Interpretive Data was last revised on 2017. Testing performed by: [address] [address] Imm gran pct 0.4 % [facility] Comment: Interpretive Data Percent cell count reference ranges are not reported, since discordance with absolute values may lead to misinterpretation of CBC data. Current Interpretive Data was last revised on 2017. Testing performed by: [address] [address] Lymphocyte pct 28.0 % [facility] Comment: Interpretive Data Percent cell count reference ranges are not reported, since discordance with absolute values may lead to misinterpretation of CBC data. Current Interpretive Data was last revised on 2017. Testing performed by: [address] [address] Monocyte pct 7.1 % [facility] Comment: Interpretive Data Percent cell count reference ranges are not reported, since discordance with absolute values may lead to misinterpretation of CBC data. Current Interpretive Data was last revised on 2017. Testing performed by: [address] [address] Eosinophil pct 1.5 % [facility] Comment: Interpretive Data Percent cell count reference ranges are not reported, since discordance with absolute values may lead to misinterpretation of CBC data. Current Interpretive Data was last revised on 2017. Testing performed by: [address] [address] Basophil pct 0.3 % [facility] Comment: Interpretive Data Percent cell count reference ranges are not reported, since discordance with absolute values may lead to misinterpretation of CBC data. Current Interpretive Data was last revised on 2017. Testing performed by: [address] [address] Blood 12/18/2021 2:55 PM CDT 12/18/2021 3:07 PM CDT Santo Vail MD LAB BLOOD ORDERABLES Blessing alicea Result [facility] [address] [place] [address] * (ABNORMAL) Basic metabolic panel (12/18/2021 2:55 PM CDT) Sodium 137 135 - 145 mmol/L NILSA Comment:Testing performed by : [address] [address] Potassium, pl 5.5(H) 3.3 - 4.9 mmol/L NILSA Comment:Testing performed by : [address] [address] Chloride 103 97 - 110 mmol/L NILSA Comment:Testing performed by : [address] [address] CO2 20(L) 22 - 32 mmol/L NILSA Comment:Testing performed by : [address], [place]., [address] Anion gap 14 2 - 15 mmol/L NILSA Comment:Testing performed by : [address] [address] BUN 63(H) 8 - 25 mg/dL NILSA Comment:Testing performed by : [address] [address] Creatinine 2.00(H) 0.60 - 1.10 mg/dL NILSA Comment:Testing performed by : [address] [address] Glucose 356(H) 70 - 199 mg/dL NILSA [...] was last revised 2017. Testing performed by: [address] [address] Calcium 9.5 8.5 - 10.3 mg/dL NILSA RODRIGES Comment:Testing performed by : [address] [address] Blood 12/18/2021 2:55 PM CDT 12/18/2021 3:09 PM CDT us Snato Vail MD LAB BLOOD ORDERABLES Blessing deanne Result NILSA [address] [facility] [place] [address] * (ABNORMAL) CBC with auto differential (12/18/2021 2:55 PM CDT) WBC 9.4 3.8 - 9.9 K/cumm NILSA RODRIGES Comment:Testing performed by : [address] [address] Hgb 9.3(L) 11.9 - 15.5 g/dL NILSA Comment:Testing performed by : [address] [address] Hct 30.0(L) 35.6 - 45.5 % NILSA RODRIGES Comment:Testing performed by : [address] [address] Plt 248 150 - 400 K/cumm NILSA RODRIGES Comment:Testing performed by : [address] [address] MPV 11.4 9.1 - 12.3 fL NILSA Comment:Testing performed by : [address] [address] RBC 3.30(L) 3.90 - 5.20 M/cumm NILSA Comment:Testing performed by : [address] [address] MCV 90.9 81.3 - 96.4 fL NILSA Comment:Testing performed by : [address] [address] MCH 28.2 27.1 - 33.3 pg NILSA RODRIGES Comment:Testing performed by : [address] [address] MCHC 31.0(L) 32.3 - 35.7 g/dL NILSA Comment:Testing performed by : [address], [address] RDW CV 16.0(H) 11.1 - 14.9 % NILSA Comment:Testing performed by : [address], [address] RDW SD 52.6(H) 35.7 - 48.1 fL NILSA Comment:Testing performed by : [facility], [address] [place] [address]., [address] NRBC abs 0.00 0.00 - 0.01 K/cumm NILSA Comment:Testing performed by : [address], [address] Blood 12/18/2021 2:55 PM CDT 12/18/2021 3:07 PM CDT Santo Vail MD LAB BLOOD ORDERABLES Blessing l Result [place] [address] [facility] [place] [address] documented in this encounter Visit Diagnoses Diagnosis Anemia, unspecified type Essential hypertension Unspecified essential hypertension Stage 3b chronic kidney disease (HCC) Anemia, unspecified type Gastritis without bleeding, unspecified chronicity, unspecified gastritis type documented in this encounter Additional Health Concerns Infection Onset Date Last Indicated Resolved Time COVID: Recovered Comment:Added based on recent COVID infection. 08/24/2021 08/26/2021 12/22/2021 3:05 AM C DT documented as of this encounter Care Teams Batch Dumper Relationship Specialty Start Date End Date Cherelle Corcoran MD PCP - General Family Medicine 08/30/19 Mark Queen MD Consulting Physician Infectious Diseases 01/10/20 Sarahy Schmidt, DANIELLE [address] [facility] [address] [place] [address] ACO Care Java Android Developer 11/27/21 12/25/21 documented as of this encounter
--- OUTSIDE RECORDS SUMMARY | 2024-07-04 04:15 | XMS_ITS | Encounter Summary ---
Author Organization [facility] Address [address] [facility] [address] [place] [address] Care Team Providers Care Cook Mess Name Role Phone Cherelle Corcoran MD Primary Care Pro vider Mark Queen MD Unavailable [phone] Sarahy Schmidt FOOD AND NUTRITION PROFESSOR Unavailable Encounter Details Date Type Department Care Team (Late st Contact Info) Description 12/19/2021 Telephone [facility] Nephrology [address] [facility] [address] [place] [address] Markie Ryan MD [address] [facility] [address] [place] [address] Social History Tobacco Use Types [...] any clubs o r organizations such as christian groups, unions, fraternal or athletic groups, or [...] on file Legal Sex Female 9:03 AM BRANNER MACHINE TENDER Gender Identity Female 02/08/2020 6:39 PM CDT Sexual Orientation Not on file documented as of this encounter Miscellaneous Notes * Telephone Encounter - Yessy Christianson MA - 12/19/2021 12:50 PM CDT Patients daughter returned call, informed of results. Lab orders entered for [facility]. * Telephone Encounter - Yessy Christianson MA - 12/19/2021 12:48 PM CDT ----- Message from Markie Ryan MD sent at 12/19/2021 12:24 PM CDT ----- Please let her daughter know that iron stores are good, hemoglobin better, creatinine stable. Wouldrepeat a BMP, CBC and intact PTH prior to her visit in January please documented in this encounter Plan of Treatment Upcoming Encounters Date Type Department Care Team (Latest Contact Info) Description 07/13/2024 9:00 AM BRANNER MACHINE TENDER Hospital Encounter [facility] GI Lab [address] [place] [address] Jaya Grier MD [facility] [address] [place] [address] 07/13/2024 9:00 AM BRANNER MACHINE TENDER - 07/13/2024 9:30 AM BRANNER MACHINE TENDER Surgery [facility] GI Lab [address] [place] [address] Jaya Grier MD [address] [facility] [address] [place] [address] ESOPHAGOGASTRODUODENOSCOPY Scheduled Procedures Name Priority Associated Diagnoses Date/Ti me ESOPHAGOGASTRODUODENOSCOPY Anemia, unspecified type Gastritis without bleeding, unspecified chronicity, unspecified gastritis type 07/13/2024 9:00 AM BRANNER MACHINE TENDER COLONOSCOPY Iron deficiency anemia due [...] documented as of this encounter Care Teams Cook Mess Relationship Specialty Start Date End Date Cherelle Corcoran MD PCP - General Family Medicine 08/30/19 Mark Queen MD Consulting Physician Infectious Diseases 01/10/20 Sarahy Schmidt, FOOD AND NUTRITION PROFESSOR [address] [place] [address] [address] [place] [address] ACO Care Payroll And Benefits Analyst 11/27/21 12/25/21 documented as of this encounter
--- OUTSIDE RECORDS SUMMARY | 2024-07-04 04:15 | XMS_ITS | Encounter Summary ---
Author Organization [facility] Address [address] [place] [address] Phone Care Team Providers Care Bath House Attendant Name Role Phone Cherelle Corcoran MD Primary Care Pro vider Mark Queen MD Unavailable [phone] Reason for Visit * Auth/Cert Specialty Diagnoses / Procedures Referred By Maryse lama Referred To Contact Referral ID Status Reason Start Date Expiration Date Visits Re quested Visits Authorized [id number] 1 1 Encounter Details Date Type Department Care Team (Late st Contact Info) Description 12/30/2021 Home Care Visit [facility] - [place] [address] [address] [place] [address] Jamila Cabrera, RN CASE COMMUNICATION Social History [...] Legal Sex Female 9:03 AM HELP DESK ANALYST Gender Identity Female 02/08/2020 6:39 PM CDT Sexual Orientation Not on file documented as of this encounter Plan of Treatment Upcoming Encounters Date Type Department Care Team (Latest Contact Info) Description 07/13/2024 9:00 AM HELP DESK ANALYST Hospital Encounter [facility] GI Lab [address] [place] [address] J[facility] Grier MD [facility] [address] [place] [address] 07/13/2024 9:00 AM HELP DESK ANALYST - 07/13/2024 9:30 AM HELP DESK ANALYST Surgery [facility] GI Lab [address] [place] [address] Jaya Grier MD [facility] [address] [place] [address] ESOPHAGOGASTRODUODENOSCOPY Scheduled Procedures Name Priority Associated Diagnoses Date/Ti me ESOPHAGOGASTRODUODENOSCOPY Anemia, unspecified type Gastritis without bleeding, unspecified chronicity, unspecified gastritis type 07/13/2024 9:00 AM HELP DESK ANALYST COLONOSCOPY Iron deficiency anemia due to chronic blood loss documented as of this encounter Visit Diagnoses Not on filedocumented in this encounter Care Teams Bath House Attendant Relationship Specialty Start Date End Date Cherelle Corcoran MD PCP - General Family Medicine 08/30/19 Mark Queen MD Consulting Physician Infectious Diseases 01/10/20 documented as of this encounter
--- OUTSIDE RECORDS SUMMARY | 2024-07-04 04:15 | XMS_ITS | Encounter Summary ---
Author Organization [facility] Address [address] [place] [address] Phone Care Team Providers Care Pack Operator Name Role Phone Cherelle Corcoran MD Primary Care Pro vider QueenMark Perez MD Unavailable [phone] Brandie Callejas Unavailable Unavail able Xenia Padilla LPN Unavailable [phone] Samples, Melania Joel RN Unavailable [phone] Anam Costa LCSW Unavailable Unavailabl e Samples, eMlania Joel RN Unavailable [phone] Rudolph Welch MD Unavailable Markie Ryan MD Unavailable [phone] Nadege Ramírez RN Unavailable Dulce Vega RN Unavailable [phone] Jimbo Strauss MD Unavailable [phone] Jaya Grier MD Unavailable Encounter Details Date Type Department Care Team (Late st Contact Info) Description 12/30/2021 Telephone [facility] Endocrinology Metabolism and Lipid [address] [facility] 5[address] [place] [address] [place] [address] Rachael Smith CMA Social History Tobacco Use Types Packs/Day Years [...] on file Legal Sex Female 9:03 AM DIAMOND FINISHING SUPERVISOR Gender Identity Female 02/08/2020 6:39 PM CDT Sexual Orientation Not on file documented as of this encounter Plan of Treatment Upcoming Encounters Date Type Department Care Team (Latest Contact Info) Description 07/13/2024 9:00 AM DIAMOND FINISHING SUPERVISOR Hospital Encounter [facility] GI Lab [address] [place] [address] Jaya Grier MD [address] [place] [address] [address] [place] [address] 07/13/2024 9:00 AM DIAMOND FINISHING SUPERVISOR - 07/13/2024 9:30 AM DIAMOND FINISHING SUPERVISOR Surgery [facility] GI Lab [address] [place] [address] Jaya Grier MD [facility] [address] [place] [address] ESOPHAGOGASTRODUODENOSCOPY Scheduled Procedures Name Priority Associated Diagnoses Date/Ti or ESOPHAGOGASTRODUODENOSCOPY Anemia, unspecified type Gastritis without bleeding, unspecified chronicity, unspecified gastritis type 07/13/2024 9:00 AM DIAMOND FINISHING SUPERVISOR COLONOSCOPY Iron deficiency anemia due to chronic blood loss documented as of this encounter Visit Diagnoses Not on filedocumented in this encounter Additional Health Concerns Infection Onset Date Last Indicated Resolved Time COVID: Suspected 05/08/2022 05/08/2022 05/08/2022 4:26 PM DIAMOND FINISHING SUPERVISOR COVID: Suspected 06/19/2022 06/19/2022 06/19/2022 12:37 PM DIAMOND FINISHING SUPERVISOR COVID: Suspected 08/01/2022 08/01/2022 08/01/2022 2:28 PM DIAMOND FINISHING SUPERVISOR COVID: Suspected 10/02/2022 10/02/2022 10/02/2022 8:14 PM CDT MRSA Comment:Toe 11/08/22, 12/12/22 11/08/2022 12/12/2022 06/10/2023 3:05 AM DIAMOND FINISHING SUPERVISOR COVID: Suspected 12/08/2022 12/08/2022 12/08/2022 8:17 PM CDT COVID: Suspected 07/27/2023 07/27/2023 07/28/2023 12:57 AM DIAMOND FINISHING SUPERVISOR COVID: Suspected 10/29/2023 10/30/2023 10/30/2023 10:59 AM CDT 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 12/19/2023 12/19/2023 3:58 PM CDT 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 12/29/2023 06/26/2024 3:05 AM DIAMOND FINISHING SUPERVISOR COVID: Suspected 04/19/2024 04/19/2024 04/20/2024 12:44 AM CDT documented as of this encounter Care Teams Pack Operator Relationship Specialty Start Date End Date Cherelle Corcoran MD PCP - General Family Medicine 08/30/19 Mark Queen MD Consulting Physician Infectious Diseases 01/10/20 Brandie Callejas Patient Commissary Worker 06/20/22 06/22/22 Xenia Padilla LPN [address] [facility] [address] [place] [address] Boiler Welder 06/24/22 06/24/22 Samples, Melania Jeol RN [address] [place] [address] [address] [place] [address] Boiler Welder 07/22/22 08/21/22 Anam Costa LCSW [address] [place] [address] [address] [place] [address] Boiler Welder 08/08/22 02/18/23 Samples, Melania Joel RN [address] [place] [address] [address] [place] [address] Boiler Welder 08/22/22 12/07/22 Rudolph Welch MD [address] [facility] [address] [place] [address] Consulting Physician Infectious Diseases 12/05/22 Markie Ryan MD [address] [facility] [address] [place] [address] Consulting Physician Nephrology 12/05/22 Nadege Ramírez RN [address] [place] [address] [address] [place] [address] Boiler Welder 01/20/23 02/23/23 Dulce Vega RN [address] [place] [address] [address] [place] [address] Boiler Welder 10/07/23 05/03/24 [place] [address] [facility] [address] [place] [address] Consulting Physician Nephrology 10/22/23 Jaya Grier MD [address] [facility] [address] [place] [address] Consulting Physician Gastroenterology 02/01/24 documented as of this encounter
--- OUTSIDE RECORDS SUMMARY | 2024-07-04 04:15 | XMS_ITS | Encounter Summary ---
Author Organization [facility] Home Care [facility] es Address [address] [place] [address] Phone Care Team Providers Care Shield Runner Name Role Phone Cherelle Corcoran MD Primary Care Pro vider Mark Queen MD Unavailable [phone] Reason for Visit * Auth/Cert Specialty Diagnoses / Procedures Referred By Maryse t Referred To Contact Referral ID Status Reason Start Date Expiration Date Visits Re quested Visits Authorized [id number] 1 1 Encounter Details Date Type Department Care Team (Late st Contact Info) Description 01/02/2022 8:30 AM CDT Home Care Visit [facility] [address] [place] [address] Jamila Cabrera, RN SN HOME VISIT Social History Tobacco [...] on file Legal Sex Female 9:03 AM WEDDING PHOTOGRAPHER Gender Identity Female 02/08/2020 6:39 PM CDT Sexual Orientation Not on file documented as of this encounter Last Filed Vital Signs Vital Sign Reading Time Taken Comments Blood Pressure 132/64 01/02/2022 9:01 AM CDT Pulse 85 01/02/2022 9:01 AM CDT Temperature 36.6 ??C (97.9 ??F) 01/02/2022 9:01 AM CD T Respiratory Rate 18 01/02/2022 9:01 AM CDT Oxygen Saturation 97% 01/02/2022 9:01 AM CDT Inhaled Oxygen Concentration - - Weight - - Height - - Body Mass Index - - documented in this encounter Plan of Treatment Upcoming Encounters Date Type Department Care Team (Latest Contact Info) Description 07/13/2024 9:00 AM WEDDING PHOTOGRAPHER Hospital Encounter [facility] [address] [place] [address] Jaya Grier MD [address] [place] [address] [address] [place] [address] 07/13/2024 9:00 AM WEDDING PHOTOGRAPHER - 07/13/2024 9:30 AM WEDDING PHOTOGRAPHER Surgery [facility] [address] [place] [address] Jaya Grier MD [facility] [address] GA[address] [place] [address] ESOPHAGOGASTRODUODENOSCOPY Scheduled Procedures Name Priority Associated Diagnoses Date/Ti wi ESOPHAGOGASTRODUODENOSCOPY Anemia, unspecified type Gastritis without bleeding, unspecified chronicity, unspecified gastritis type 07/13/2024 9:00 AM WEDDING PHOTOGRAPHER COLONOSCOPY Iron deficiency anemia due to chronic blood loss documented as of this encounter Visit Diagnoses Not on filedocumented in this encounter Home Health Visit - Care Plan Visit Details Visit Type -SN Home Visit Discipline -Mcc Problems Problem Description Start Date Status Goals Interventions Homebound Status Disciplines: Skilled Disciplines Patient's homebound status 12/25/2021 Active 1 goal linked to scheduled/docume nted intervention 1 goal intervention scheduled/documen bruno in this visit Monitor patient's vital signs every home health visit Disciplines: SN, PT, OT, WINDOW SASH INSTALLER, GRINDER OUTSIDE DIAMETER, Skilled Disciplines Monitor patient's vital signs every [...] this visit Disease Management - Diabetes Disciplines: Mcc Management of diabetes symptoms 12/25/2021 Active 1 [...] visit during episode of care Description: Home corrosion technician to measure vital signs during every home [...] health visit during episode of care Completed Monitor blood pressure, pulse, oxygen saturation, respirations, VSS. Instruct Fall Prevention Description: Instruct patient/caregiver in methods to prevent falls Problem:Safety concerns Goal:Demonstrate use of safety precautions Completed Instruct patient/caregiver in methods to prevent falls Assess safety Description: Assess patient safety Problem:Safety concerns Goal:Demonstrate use of safety precautions Completed Assess patient safety, patient was reminder to use walker while walking. Instruct on the prevention of deep vein thrombosis Description: Instruct patient/caregiver on signs and symptoms, preventative measures related to DVT, and provide ongoing home support based on patient needs Problem:DVT Prevention and Management Goal:Demonstrate knowledge of anticoagulant therapy Completed Instruct patient/caregiver on signs and symptoms, preventative measures related to DVT, and provide ongoing home support based on patient needs. Instruct on pain management techniques Description: Instruct in pharmacologic and nonpharmacologic pain management techniques. Problem:Pain Goal:Report that pain has been reduced or controlled Completed Instruct in pharmacologic and nonpharmacologic pain management techniques. Educate on foot care Description: Educate patient/caregiver on proper foot care. Problem:Disease Management - Diabetes Goal:Verbalize prevention of Diabetic complications Completed Instruct patient/caregiver in methods to prevent falls. Patient states she had a sore on her left heel while she was in the hospital. documented in this encounter Care Teams Shield Runner Relationship Specialty Start Date End Date Cherelle Corcoran MD PCP - General Family Medicine 08/30/19 Mark Queen MD Consulting Physician Infectious Diseases 01/10/20 documented as of this encounter
--- OUTSIDE RECORDS SUMMARY | 2024-07-04 04:15 | XMS_ITS | Encounter Summary ---
Author Organization [facility] Home Care Servic es Address [address] [place] [address] Phone Care Team Providers Care Interpersonal Communications Professor Name Role Phone Cherelle Corcoran MD Primary Care Pro vider Mark Queen MD Unavailable [phone] Reason for Visit * Auth/Cert Specialty Diagnoses / Procedures Referred By Maryse lama Referred To Contact Referral ID Status Reason Start Date Expiration Date Visits Re quested Visits Authorized [id number] 1 1 Encounter Details Date Type Department Care Team (Late st Contact Info) Description 01/01/2022 Home Care Visit [facility] Home Health - [address] [address] [address] [place] [address] Diann Hernandez OT TELEPHONE ENCOUNTER Social History [...] on file Legal Sex Female 9:03 AM TRIBAL JUDGE Gender Identity Female 02/08/2020 6:39 PM CDT Sexual Orientation Not on file documented as of this encounter Plan of Treatment Upcoming Encounters Date Type Department Care Team (Latest Contact Info) Description 07/13/2024 9:00 AM TRIBAL JUDGE Hospital Encounter [facility] [address] [place] [address] Jaya Grier MD [address] [facility] [address] [place] [address] 07/13/2024 9:00 AM TRIBAL JUDGE - 07/13/2024 9:30 AM TRIBAL JUDGE Surgery [facility] [address] [place] [address] Jaya Grier MD [facility] [address] [place] [address] ESOPHAGOGASTRODUODENOSCOPY Scheduled Procedures Name Priority Associated Diagnoses Date/Ti me ESOPHAGOGASTRODUODENOSCOPY Anemia, unspecified type Gastritis without bleeding, unspecified chronicity, unspecified gastritis type 07/13/2024 9:00 AM TRIBAL JUDGE COLONOSCOPY Iron deficiency anemia due to chronic blood loss documented as of this encounter Visit Diagnoses Not on filedocumented in this encounter Care Teams Interpersonal Communications Professor Relationship Specialty Start Date End Date Cherelle Corcoran MD PCP - General Family Medicine 08/30/19 Mark Queen MD Consulting Physician Infectious Diseases 01/10/20 documented as of this encounter
--- OUTSIDE RECORDS SUMMARY | 2024-07-04 04:15 | XMS_ITS | Encounter Summary ---
Author Organization [facility] Home [facility] Address [address] [place] [address] Phone Care Team Providers Care Granite Polisher Apprentice Name Role Phone Cherelle Corcoran MD Primary Care Pro vider Mark Queen MD Unavailable [phone] Sarahy Schmidt LPN Unavailable [phone] Reason for Visit * Auth/Cert Specialty Diagnoses / Procedures Referred By Maryse t Referred To Contact Referral ID Status Reason Start Date Expiration Date Visits Re quested Visits Authorized [id number] 1 1 Encounter Details Date Type Department Care Team (Late st Contact Info) Description 12/25/2021 Home Care Visit [facility] Home Health - [place] [address] [facility] [address] [place] [address] Rita Light RN SBAR-START OF CARE/RESUMPTION Social History Tobacco Use [...] file Legal Sex Female 9:03 AM FOOD TRUCK CATERER Gender Identity Female 02/08/2020 6:39 PM CDT Sexual Orientation Not on file documented as of this encounter Plan of Treatment Upcoming Encounters Date Type Department Care Team (Latest Contact Info) Description 07/13/2024 9:00 AM FOOD TRUCK CATERER Hospital Encounter [facility] [address] [place] [address] Jaya Grier MD [address] [facility] [address] [place] [address] 07/13/2024 9:00 AM FOOD TRUCK CATERER - 07/13/2024 9:30 AM FOOD TRUCK CATERER Surgery [facility] [address] [place] [address] Jaya Grier MD [facility] [facility] [address] [place] [address] ESOPHAGOGASTRODUODENOSCOPY Scheduled Procedures Name Priority Associated Diagnoses Date/Ti me ESOPHAGOGASTRODUODENOSCOPY Anemia, unspecified type Gastritis without bleeding, unspecified chronicity, unspecified gastritis type 07/13/2024 9:00 AM FOOD TRUCK CATERER COLONOSCOPY Iron deficiency anemia due to chronic blood loss documented as of this encounter Visit Diagnoses Not on filedocumented in this encounter Care Teams Granite Polisher Apprentice Relationship Specialty Start Date End Date Cherelle Corcoran MD PCP - General Family Medicine 08/30/19 Mark Queen MD Consulting Physician Infectious Diseases 01/10/20 Sarahy Schmidt, INTELLIGENCE SENIOR SERGEANT [address] [place] [address] [address] [place] [address] ACO Care Retail Banker 11/27/21 12/25/21 documented as of this encounter
--- OUTSIDE RECORDS SUMMARY | 2024-07-04 04:15 | XMS_ITS | Encounter Summary ---
Author Organization [facility] Home Care [facility] es Address [address] [place] [address] Phone Care Team Providers Care Engineering Test Specialist Name Role Phone Cherelle Corcoran MD Primary Care Pro vider Mark Queen MD Unavailable [phone] Sarahy Schmidt INTERNSHIP COORDINATOR Unavailable Encounter Details Date Type Department Care Team (Late st Contact Info) Description 12/22/2021 Home Care Visit [facility] Home Health - [address] [place] [address] Paola Tamayo, ALIREZA TELEPHONE ENCOUNTER Social History Tobacco Use [...] How often do you attend chur or samaritan services? Never 09/10/2021 Do you [...] on file Legal Sex Female 9:03 AM FORENSIC PATHOLOGIST Gender Identity Female 02/08/2020 6:39 PM CDT Sexual Orientation Not on file documented as of this encounter Plan of Treatment Upcoming Encounters Date Type Department Care Team (Latest Contact Info) Description 07/13/2024 9:00 AM FORENSIC PATHOLOGIST Hospital Encounter [facility] [address] [place] [address] Jaya Grier MD [address] [facility] [address] [place] [address] 07/13/2024 9:00 AM FORENSIC PATHOLOGIST - 07/13/2024 9:30 AM FORENSIC PATHOLOGIST Surgery [facility] [address] [place] [address] Jaya Grier MD [address] [facility] [address] [place] [address] ESOPHAGOGASTRODUODENOSCOPY Scheduled Procedures Name Priority Associated Diagnoses Date/Ti me ESOPHAGOGASTRODUODENOSCOPY Anemia, unspecified type Gastritis without bleeding, unspecified chronicity, unspecified gastritis type 07/13/2024 9:00 AM FORENSIC PATHOLOGIST COLONOSCOPY Iron deficiency anemia due to chronic blood loss documented as of this encounter Visit Diagnoses Not on filedocumented in this encounter Additional Health Concerns Infection Onset Date Last Indicated Resolved Time COVID: Recovered Comment:Added based on recent COVID infection. 08/24/2021 08/26/2021 12/22/2021 3:05 AM C DT documented as of this encounter Care Teams Engineering Test Specialist Relationship Specialty Start Date End Date Cherelle Corcoran MD PCP - General Family Medicine 08/30/19 Mark Queen MD Consulting Physician Infectious Diseases 01/10/20 Sarahy Schmidt, INTERNSHIP COORDINATOR [address] [place] [address] [address] [place] [address] ACO Care Race Engine Builder 11/27/21 12/25/21 documented as of this encounter
--- OUTSIDE RECORDS SUMMARY | 2024-07-04 04:16 | XMS_ITS | Encounter Summary ---
Author Organization [facility] Address [address] [facility] [facility] [address] [place] [address] Care Team Providers Care Refinery Operator Light Ends Recovery Name Role Phone Cherelle Corcoran MD Primary Care Pro vider Mark Queen MD Unavailable [phone] Reason for Visit * Reason Comments Chronic Kidney Disease - Follow Up Visit * Consultation (Routine) - Closed Specialty Diagnoses / Procedures Referred By Maryse lama Referred To Contact Nephrology Diagnoses Stage 3b chronic kidney disease (HCC) Tati Duvall MD [address] [place] [address] Phone: tel: fax: [facility] (All Locations) Referral ID Status Reason Start Date Expiration Date V isits Requested Visits Authorized [id number] Closed Specialty Services Required 08/13/2021 09/12/2022 1 1 Encounter Details Date Type Department Care Team (Late st Contact Info) Description 10/16/2021 4:00 PM CDT Office Visit [facility] Nephrology [address] [place] [address] [place] [phone] Markie Ryan MD [facility] [facility] [address] [place] [phone] Stage 3b chronic kidney disease (HCC) (Primary [...] you attend chur ch or christianity services? Never 09/10/2021 Do you belong to [...] on file Legal Sex Female 9:03 AM ZIGZAG TUNNEL ELASTIC OPERATOR Gender Identity Female 02/08/2020 6:39 PM CDT Sexual Orientation Not on file documented as of this encounter Last Filed Vital Signs Vital Sign Reading Time Taken Comments Blood Pressure 164/72 10/16/2021 4:30 PM CDT Pulse 73 10/16/2021 4:12 PM CDT Temperature 36.6 ??C (97.8 ??F) 10/16/2021 4:12 PM CD T Respiratory Rate - - Oxygen Saturation - - Inhaled Oxygen Concentration - - Weight 74.4 kg (164 lb) 10/16/2021 4:12 PM CDT Height 157.5 cm (5' 2 ) 10/16/2021 4:12 PM CDT Body Mass Index 30 10/16/2021 4:12 PM CDT documented in this encounter Ordered Prescriptions Prescription Sig Dispense Quantity Refills Last Filled Start Date End Date furosemide (LASIX) 40 mg tablet Take 1 tablet (40 mg total) by mouth 2 (two) times a day 60 tablet 11 10/16/2021 10/06/2022 documented in this encounter Progress Notes * Markie Ryan MD - 10/16/2021 4:00 PM CDT Images from the original note were not included. Subjective/Objective Patient ID: Barbara Chakraborty is a 70 y.o. female. Chief Complaint Chronic Kidney Disease - Follow Up Visit HPI This is a patient with chronic kidney disease. She has a history of diabetes since 1997 and a more recent history of hypertension. She does have a history of schizophrenia and had significant difficulty controlling her glucose. She apparently presented with volume overload recently was admitted to the hospital. Serum creatinine was 1.4 when I last saw her in the office and is 2.0 now. Her hemoglobin was noted to be 7.7 during her hospital stay and albuminuria estimated at 500 mg per day by spot ratio. She has returned home and has home health. She reports that she is short of breath when recumbent. Review of Systems Constitutional: Negative for appetite [...] ??? acetaminophen (TYLENOL) 325 mg tablet Take 2 tablets (650 mg total) by mouth every 4 (four) hours as needed for pain 60 tablet 0 ??? albuterol HFA (ProAir HFA) 90 mcg/actuation inhaler Inhale 2 puffs every 4 (four) hours as needed for wheezing or shortness of breath 8.5 g 0 ??? atorvastatin (LIPITOR) 40 mg tablet Take 1 tablet (40 mg total) by mouth daily 90 tablet 3 ??? BD Arlyn 2nd Gen Pen Needle 32 gauge x 5 needle USE TO INJECT BASAGLAR EVERY NIGHT AT BEDTIME ??? blood pressure monitor kit Check BP as instructed 1 kit 0 ??? carvediloL (COREG) 3.125 mg tablet Take 1 tablet (3.125 mg total) by mouth 2 (two) times a day with meals 60 tablet 1 ??? conner.stocking,thigh,reg,med misc Wear as much as possible 2 each 1 ??? famotidine (PEPCID) 20 mg tablet Take 1 tablet (20 mg total) by mouth daily 30 tablet 11 ??? ferrous sulfate 325 mg (65 mg of elemental iron) tablet Take 1 tablet (325 mg total) by mouth daily with breakfast 30 tablet 11 ??? flash glucose scanning reader (FreeStyle Madhav 2 [place]) [facility] [place] Use to continually monitor glucose 1 each 0 ??? flash glucose sensor (FreeStyle Madhav 2 Sensor) kit Use to continually monitor glucose, change every 14 days 6 kit 3 ??? glucose 4 gram chewable tablet Take 4 tablets (16 g total) by mouth as needed for low blood sugar (less than 70) and let Dr. Corcoran know! 50 tablet 0 ??? insulin glargine (LANTUS, SEMGLEE) 100 unit/mL vial for injection Inject 25 Units under the skin nightly 7.5 mL 11 ??? insulin lispro (HumaLOG, ADMELOG) 100 unit/mL pen for injection Inject 0-10 Units under the skin 3 (three) times a day with meals 15 mL 0 ??? lancets [facility] [place] Check blood sugar up to 3 times a day 100 each 3 ??? lidocaine (LIDODERM) 5 % Place 1 patch on the skin daily Apply to painful area 12 hours per day, remove for 12 hours. 90 patch 1 ??? miscellaneous medical supply (Blood Pressure Cuff) [facility] [place] Use to check blood pressure daily 1 each 1 ??? OneTouch Verio test strips strip TEST 3 TO 4 TIMES DAILY 400 each 1 ??? pregabalin (LYRICA) 150 mg capsule TAKE 1 CAPSULE(150 MG) BY MOUTH EVERY NIGHT 30 capsule 2 ??? risperiDONE (RisperDAL) 2 mg tablet Take 1 tablet (2 mg total) by mouth nightly 30 tablet 11 ??? syringe with needle, insulin (INSULIN SYRINGE-NEEDLE U-100 [facility]) 3 times a day ??? Trulicity 0.75 mg/0.5 mL pen injector ADMINISTER 0.75 MG UNDER THE SKIN 1 TIME A WEEK 2 mL 0 ??? capsaicin (ZOSTRIX) 0.025 % cream Apply topically 2 (two) times a day (Patient not taking: Reported on 10/16/2021) 60 g ??? furosemide (LASIX) 40 mg tablet Take 1 tablet (40 mg total) by mouth 2 (two) times a day 60 tablet 11 ??? multivitamin with minerals tablet Take 1 tablet by mouth daily (Patient not taking: Reported on10/16/2021) ??? polyethylene glycol (MIRALAX) 17 gram packet Take 1 packet (17 g total) by mouth daily (Patientnot taking: Reported on 10/16/2021) No current facility-administered medications for this visit. No Known Allergies Vitals BP 164/72 Pulse 73 Temp 36.6 ??C (97.8 ??F) (Skin) Ht 157.5 cm (5' 2 ) Wt 74.4 kg (164 lb) BMI 30.00 kg/m?? Physical Exam Constitutional: Appears well-developed and well-nourished. Head: Normocephalic and atraumatic. Eyes: EOM are normal. Neck: Normal range of motion. Cardiovascular: Normal rate and regular rhythm. Pulmonary/Chest: diminished breath sounds at bases bilaterally Abdominal: Soft. Bowel sounds are normal. Musculoskeletal: limited range of motion with 2-3 + bilateral lower extremity edema Neurological: Alert and oriented to person, place, and time. Skin: Skin is warm and dry. Psychiatric: Normal mood and affect. Assessment/Plan Diagnoses and all orders for this visit: Stage 3b chronic kidney disease (HCC) (N18.32) (Primary) - Ambulatory referral to Nephrology - Basic metabolic panel; Future - PTH; Future Diabetic nephropathy (CMS/HCC) (HCC) (E11.21) Benign hypertensive kidney disease with chronic kidney disease stage I through stage IV, or unspecified(403.10) (I12.9) Anemia in stage 3b chronic kidney disease (HCC) (N18.32, D63.1) - Iron profile w/ IBC; Future - Vitamin B12; Future - CBC with auto differential; Standing Other orders - furosemide (LASIX) 40 mg tablet; Take 1 tablet (40 mg total) by mouth 2 (two) times a day CKD with a long-term history of diabetes. The patient does have underlying schizophrenia and glucose control has been difficult although her A1c has been improving of late. Apparently recent presentation with volume overload and was hospitalized. Serum creatinine 2.0 on recent labs which is up fromprevious although she still has significant volume overload on exam today and reports she does havePND/orthopnea. Increasing her furosemide to 40 mg b.i.d. and I asked her to monitor her weights andnotify the office if her weight is not decreasing and if her symptoms of shortness of breath are not improving. She also has significant anemia with a likely component of CKD. I will check iron studie s/etcetera with upcoming labs as well. Her blood pressure is elevated in the office today. Continueto monitor with attempts at volume improvement and I asked her to notify the office if her BP remains elevated. Currently off of her KRISTYN- inhibitor with diabetic nephropathy. Will continue to hold until her volume status is improved and then would attempt to resume at a low dose initially. documented in this encounter Plan of Treatment Upcoming Encounters Date Type Department Care Team (Latest Contact Info) Description 07/13/2024 9:00 AM ZIGZAG TUNNEL ELASTIC OPERATOR Hospital Encounter [facility] [address] [place] [address] Jaya Grier MD [facility] [facility] [address] GA[address] [place] [address] 07/13/2024 9:00 AM ZIGZAG TUNNEL ELASTIC OPERATOR - 07/13/2024 9:30 AM ZIGZAG TUNNEL ELASTIC OPERATOR Surgery [facility] [address] [place] [address] Jaya Grier MD [address] [facility] [address] [place] [address] ESOPHAGOGASTRODUODENOSCOPY Scheduled Procedures Name Priority Associated Diagnoses Date/Ti me ESOPHAGOGASTRODUODENOSCOPY Anemia, unspecified type Gastritis without bleeding, unspecified chronicity, unspecified gastritis type 07/13/2024 9:00 AM ZIGZAG TUNNEL ELASTIC OPERATOR COLONOSCOPY Iron deficiency anemia due to chronic blood loss documented as of this encounter Results * PTH (10/16/2021 5:11 PM CDT) PTH 40 15 - 65 pg/mL NILSA RODRIGES Comment:Testing performed by : [facility], [address] [place] [address]., [address] Blood 10/16/2021 5:11 PM CDT 10/16/2021 5:48 PM CDT us Markie Ryan MD LAB BLOOD ORDERABLES Final Re sult NILSA [address] [facility] Department [place] [address] * (ABNORMAL) Basic metabolic panel (10/16/2021 5:11 PM CDT) Sodium 143 135 - 145 mmol/L NILSA Comment:Testing performed by : [address] [address] Potassium, pl 4.3 3.3 - 4.9 mmol/L NILSA Comment:Testing performed by : [address] [address] Chloride 107 97 - 110 mmol/L NILSA Comment:Testing performed by : [address] [address] CO2 26 22 - 32 mmol/L NILSA Comment:Testing performed by : [address] [address] Anion gap 10 2 - 15 mmol/L NILSA Comment:Testing performed by : [address] [address] BUN 37(H) 8 - 25 mg/dL NILSA Comment:Testing performed by : [address] [address] Creatinine 1.70(H) 0.60 - 1.10 mg/dL NILSA Comment:Testing performed by : [address] [address] Glucose 92 70 - 199 mg/dL NILSA Comment: Interpretive [...] was last revised 2017. Testing performed by: [address] [address] Calcium 9.5 8.5 - 10.3 mg/dL NILSA Comment:Testing performed by : [address] [address] Blood 10/16/2021 5:11 PM CDT 10/16/2021 5:48 PM CDT Markie Ryan MD LAB BLOOD ORDERABLES Final Re sult Performing Organization Address City/[facility]/ZIP Co de Phone Number [address] [place] [address] * Vitamin B12 (10/16/2021 5:11 PM CDT) Vitamin B12 772 230 - 1,250 pg/mL NILSA Comment:Testing performed by : [address] [address] Blood 10/16/2021 5:11 PM CDT 10/16/2021 5:48 PM CDT Markie Rayn MD LAB BLOOD ORDERABLES Final Re sult Performing Organization Address City/[facility]/ZIP Co de Phone Number [address] [place] [address] * (ABNORMAL) Iron profile w/ IBC (10/16/2021 5:11 PM CDT) Iron 49 35 - 145 mcg/dL NILSA Comment:Testing performed by : [address] [address] TIBC 255 250 - 400 mcg/dL NILSA Comment:Testing performed by : [address] [address] Transferrin saturation 19(L) 20 - 50 % NILSA Comment:Testing performed by : [address] [address] Blood 10/16/2021 5:11 PM CDT 10/16/2021 5:48 PM CDT us Markie Ryan MD LAB BLOOD ORDERABLES Final Re sult NILSA [address] [facility] Department [place] [address] documented in this encounter Visit Diagnoses Diagnosis [...] ADMELOG) 100 unit/mL pen for injection Inject 1-4 Units under the skin 3 (three) times a day with meals (1 unit for every 50 mg/dL blood glucose greater than 150 mg/dL up to max 4 units) Refer to After Visit Summary for Sliding Scale Insulin Instructions. 09/18/2021 10/16/2021 insulin lispro (HumaLOG, ADMELOG) 100 unit/mL pen for injection Inject 8 Units under the skin 3 (three) times a day with meals 09/18/2021 10/16/2021 furosemide (LASIX) 20 mg tablet TAKE 1 TABLET(20 MG) BY MOUTH TWICE DAILY Therapy completed 09/26/2021 10/16/2021 documented as of this encounter Orders Outpatient Referral Count Last Ordered Date Fir st Ordered Date AMB REFERRAL TO NEPHROLOGY 1 10/16/2021 documented in this encounter Additional Health Concerns Infection Onset Date Last Indicated Resolved Time COVID: Recovered Comment:Added based on recent COVID infection. 08/24/2021 08/26/2021 12/22/2021 3:05 AM C DT documented as of this encounter Care Teams Refinery Operator Light Ends Recovery Relationship Specialty Start Date End Date Cherelle Corcoran MD PCP - General Family Medicine 08/30/19 Mark Queen MD Consulting Physician Infectious Diseases 01/10/20 documented as of this encounter
--- OUTSIDE RECORDS SUMMARY | 2024-07-04 04:16 | XMS_ITS | Encounter Summary ---
Author Organization [facility] Address [address] [facility] [address] [place] [address] Care Team Providers Care Heel Seat Trimmer Name Role Phone Cherelle Corcoran MD Primary Care Pro vider Mark Queen MD Unavailable [phone] Encounter Details Date Type Department Care Team (Late st Contact Info) Description 10/18/2021 Telephone [facility] Nephrology [address] [facility] [address] [place] [phone] Markie Ryan MD [address] [facility] [address] [place] [address] Social History Tobacco Use Types [...] week 09/10/2021 How often do you attend [facility] or amish services? Never 09/10/2021 Do [...] on file Legal Sex Female 9:03 AM TONGER Gender Identity Female 02/08/2020 6:39 PM CDT Sexual Orientation Not on file documented as of this encounter Miscellaneous Notes * Telephone Encounter - Yessy Christianson MA - 10/18/2021 9:18 AM CDT Patients daughter contacted and informed of lab results. Orders entered for infusions, labs enteredand mailed to patient. Aware to have labs completed two weeks after second infusion. Voiced understanding with no concerns. * Telephone Encounter - Yessy Christianson MA - 10/18/2021 9:13 AM CDT ----- Message from Markie Ryan MD sent at 10/17/2021 5:36 PM CDT ----- Remains anemic with slightly low iron stores. Please see if she can do IV iron 510 mg x 2 and repeat a BMP, H&H and iron panel 2 weeks after 2nd dose. Thank you documented in this encounter Plan of Treatment Upcoming Encounters Date Type Department Care Team (Latest Contact Info) Description 07/13/2024 9:00 AM TONGER Hospital Encounter [facility] [address] [place] [address] Jaya Grier MD [address] [place] [address] [address] [place] [address] 07/13/2024 9:00 AM TONGER - 07/13/2024 9:30 AM TONGER Surgery [facility] [address] [place] [address] Jaya Grier MD [facility] [facility] [address] [place] [address] ESOPHAGOGASTRODUODENOSCOPY Scheduled Procedures Name Priority Associated Diagnoses Date/Ti az ESOPHAGOGASTRODUODENOSCOPY Anemia, unspecified type Gastritis without bleeding, unspecified chronicity, unspecified gastritis type 07/13/2024 9:00 AM TONGER COLONOSCOPY Iron deficiency anemia due to chronic blood loss documented as of this encounter Results * (ABNORMAL) Iron profile w/ IBC (12/18/2021 2:56 PM CDT) Iron 69 35 - 145 mcg/dL NILSA Comment:Testing performed by : [address] [address] TIBC 217(L) 250 - 400 mcg/dL NILSA Comment:Testing performed by : [address] [address] Transferrin saturation 32 20 - 50 % NILSA Comment:Testing performed by : [address] [address] Blood 12/18/2021 2:56 PM CDT 12/18/2021 3:09 PM CDT us Markie Ryan MD LAB BLOOD ORDERABLES Final Re sult NILSA [address] [facility] Department [place] [address] documented in this encounter Visit [...] documented as of this encounter Care Teams Heel Seat Trimmer Relationship Specialty Start Date End Date Cherelle Corcoran MD PCP - General Family Medicine 08/30/19 Mark Queen MD Consulting Physician Infectious Diseases 01/10/20 documented as of this encounter
--- OUTSIDE RECORDS SUMMARY | 2024-07-04 04:16 | XMS_ITS | Encounter Summary ---
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 Name Role Phone Cherelle Corcoran MD Primary Care Pro vider Mark Queen MD Unavailable [phone] Reason for Visit * Reason Comments Leg Pain Cough * Auth/Cert Specialty Diagnoses / Procedures Referred By Maryse t Referred To Contact Diagnoses Cough Weakness Procedures N/A Referral ID Status Reason Start Date Expiration Date Visits Re quested Visits Authorized [id number] 1 1 Encounter Details Date Type Department Care Team (Late st Contact Info) Description 11/15/2021 1:56 AM CDT - 11/26/2021 7:12 PM CDT Hospital Encounter [facility] [address] [place] [id number] Taras Rivera MD PhD [address] [place] [address] Nelly Salazar MD [address] [place] [address] Keesha Aguirre MD 1 [facility] [address] [place] [address] Reuben Dillon MD [address] [place] [address] Violet Rivera MD PhD [address] [place] [address] Weston Ramirez MD [address] [place] [address] Cough (Primary Dx); Weakness Discharge Disposition: Discharge to SNF Social History [...] you attend chur ch or yazidism services? 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 Gender Identity Female 02/08/2020 6:39 PM CDT Sexual Orientation Not on file documented as of this encounter Last Filed Vital Signs Vital Sign Reading Time Taken Comments Blood Pressure 127/65 11/26/2021 4:12 PM CDT Pulse 76 11/26/2021 4:12 PM CDT Temperature 36.6 ??C (97.9 ??F) 11/26/2021 4:12 PM CD T Respiratory Rate 16 11/26/2021 4:12 PM CDT Oxygen Saturation 100% 11/26/2021 4:12 PM CDT Inhaled Oxygen Concentration - - Weight 64.9 kg (143 lb 3 oz) 11/26/2021 4:57 AM CDT Height 157.5 cm (5' 2 ) 11/15/2021 5:55 PM CDT Body Mass Index 26.19 11/15/2021 5:55 PM CDT documented in this encounter Discharge Summaries * Weston Ramirez MD - 11/26/2021 2:10 PM CDT Inpatient Discharge Summary BRIEF OVERVIEW Admitting Provider: Taras Rivera MD PhD Discharge Provider: Weston Ramirez MD Primary Care Physician at Discharge: Cherelle Corcoran MD [phone] Admission Date: 11/15/2021 Discharge Date:11/26/21 /Admission Location: [facility] Problems/Diagnoses: Principal Problem: Cough Active Problems: Type 2 diabetes mellitus with diabetic neuropathy, with long-term current use of insulin (CMS/HCC) (HCC) Hyperlipidemia associated with type 2 diabetes mellitus ([facility]) Dementia ([facility]) Schizoaffective disorder, bipolar type (CMS/HCC) ([facility]) Stage 3b chronic kidney disease (HCC) Physical deconditioning Left leg DVT (CMS/HCC) ([facility]) Pulmonary nodule Resolved Problems: No resolved hospital problems. DETAILS OF HOSPITAL STAY Presenting Problem/History of Present Illness: Ms. Chakraborty is a 71-year-old female with history of schizoaffective disorder, diabetes, hypertension, CKD 3B, hyperlipidemia, dementia who was brought to ED with cough and generalized weakness. ?? History predominantly obtained from medical record & daughter over phone. Patient sleepy and was not able to participate in interview. ?? Per daughter, at baseline, patient was diagnosed with dementia 3 years ago, has short term memory issues, uses walker for ambulation. She has urinary and stool incontinence at baseline. ?? She was recently discharged from [facility] yesterday after admission (2 weeks) for pneumonia and left lower extremity DVT and was discharged home with daughter. She was treated with prolongedcourse vancomycin & cefepime along with azithromycin. After returning home, she has been havingworsening cough, non- productive, has dyspnea with ambulation, tired albuterol at home without improv ement. No fevers, but has chills at baseline. She was taken off Lasix at hospital, taking Humalog 8units TID + SSI, Lantus 25 nightly. Daughter okay with SNF but had bad experiences in the past. ?? On arrival to ED, she was hemodynamically stable and afebrile with O2 sats in high 90s on room air.Chest x-ray showed bibasilar atelectasis but no consolidations. Pertinent labs include leukocytosiswith white count of 13.6, hemoglobin of 8.5 stable, platelets 367, elevated creatinine of 2.1 appears close to baseline, elevated BUN of 72, potassium of 5, sodium of 136, bicarb of 24, normal LFTs. Serial troponins x2 negative. EKG with sinus rhythm and no acute ST-T changes. Pro-BNP 175 at baseline. COVID negative. ?? She is primarily being admitted for management of weakness, persistent cough and possibly placement. Hospital Course: Pt 71 yo F with PMH of T2DM, schizoaffective disorder, dementia (baseline AAOx2- 3) who presents with worsening cough, weakness and placement. Physical deconditioning Deconditioning 2/2 prolonged hospitalization. Daughter reports that prior to her illness, she was independent with a walker. - PT/OT recommends SNF Cough Cough has improved. Recently treated at [facility] for PNA with prolonged course of antibiotics: cefepime + vancomycin + azithromycin per daughter. RSV/Flu/COVID negative. CXR with showed bibasilar atelectasis but no consolidations. On room air. - Chest CT: Mild smooth bronchial wall thickening in the lower lobes without consolidation, possibly reflecting bronchitis or sequela of aspiration. - RVP +[place] pneumovirus, on supportive care. - supportive care, improved. - seen by speech therapy on 11/19, plan regular diet with thin liquids. Pulmonary nodule CT chest: Right upper lobe 3 mm pulmonary nodule, indeterminate but likely infectious or inflammatory in etiology given the patient's history. Follow-up CT chest in one year to document resolution. Left leg DVT Recently diagnosed at OSH. 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 Follows with outpatient nephrology. Baseline seems to be around 2-2.3. At baseline on admission. ProBNP 176 on admit. - Cut down lasix to 20 mg daily for volume status maintenance. Schizoaffective disorder, bipolar type Continue risperidal Dementia Diagnosed 3 years ago. AOx3 at baseline. 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 Has short term memory issues. Continue supportive care. Hyperlipidemia associated with type 2 diabetes mellitus Continue statin Type 2 diabetes mellitus with diabetic neuropathy, with long-term current use of insulin Home regimen includes lantus 25 units + Humalog 8 units with meals + SSI, trulicity. BG WNL on arrival. - BS controlled with 23 units Lantus, 6 units Humalog with meals here. - Continue lyrica for neuropathy - HbA1C 8.2 Active Issues Requiring Follow-up: Test Results Pending at Discharge: Operative Procedures Performed: Other Procedures: Pertinent Test Results: Discharge Details Physical Exam at Discharge: Discharge Condition: good Pulse: 72 Resp: 16 BP: 106/51 Temp: 36.9 ??C (98.4 ??F) Weight: 64.9 kg (143 lb 3 oz) Pertinent Exam Findings at Discharge: WNL Discharge Disposition: Discharge to home or self care Code Status at Discharge: Full Discharge Planning I have spent 45 minutes on discharge planning activities. Time spent was on Coordination of care, Counselling with patient/family and discharge exam. Discharge Instructions: Discharge Medications: Current Medications TAKE these medications acetaminophen 325 mg tablet Take 650 mg by mouth every 6 (six) hours as needed for pain Commonly known as: TYLENOL albuterol HFA 90 mcg/actuation inhaler Inhale 2 puffs every 4 (four) hours as needed for wheezing or shortness of breath Commonly known as: ProAir HFA apixaban 5 mg tablet 5 mg every 12 (twelve) hours Commonly known as: ELIQUIS atorvastatin 40 mg tablet Take 1 tablet (40 mg total) by mouth daily Commonly known as: LIPITOR BD Arlyn 2nd Gen Pen Needle 32 gauge x 5/32 needle USE TO INJECT BASAGLAR EVERY NIGHT AT BEDTIME Generic drug: pen needle, diabetic benzonatate 100 mg capsule Take 100 mg by mouth 3 (three) times a day as needed for cough For: cough Commonly known as: TESSALON Blood Pressure [facility] Use to check blood pressure daily Generic drug: [employer] supply blood pressure monitor kit Check BP as instructed capsaicin 0.025 % cream Apply topically 2 (two) times a day Commonly known as: ZOSTRIX carvediloL 3.125 mg tablet Take 1 tablet (3.125 mg total) by mouth 2 (two) times a day with meals Commonly known as: COREG conner.stocking,thigh,reg,med misc Wear as much as possible famotidine 20 mg tablet Take 1 tablet (20 mg total) by mouth daily Commonly known as: PEPCID ferrous sulfate 325 mg (65 mg of elemental iron) tablet Take 1 tablet (325 mg total) by mouth daily with breakfast For: anemia from inadequate iron FreeStyle Madhav 2 [place] misc Use to continually monitor glucose Generic drug: flash glucose scanning reader FreeStyle Madhav 2 Sensor kit Use to continually monitor glucose, change every 14 days Generic drug: flash glucose sensor furosemide 40 mg tablet Take 1 tablet (40 mg total) by mouth 2 (two) times a day Commonly known as: LASIX guaiFENesin ER 600 mg 12 hr tablet Take 1,200 mg by mouth 2 (two) times a day Commonly known as: MUCINEX insulin glargine 100 unit/mL vial for injection Inject 25 Units under the skin nightly For: diabetes Commonly known as: LANTUS, SEMGLEE insulin lispro 100 unit/mL pen for injection Inject 0-10 Units under the skin 3 (three) times a day with meals Commonly known as: HumaLOG, ADMELOG INSULIN SYRINGE-NEEDLE U-100 MISC 3 times a day lancets misc Check blood sugar up to 3 times a day lidocaine 5 % Place 1 patch on the skin daily Apply to painful area 12 hours per day, remove for 12 hours. Commonly known as: LIDODERM multivitamin with minerals tablet Take 1 tablet by mouth daily OneTouch Verio test strips strip TEST 3 TO 4 TIMES DAILY Generic drug: blood glucose diagnostic polyethylene glycol 17 gram packet Take 1 packet (17 g total) by mouth daily For: constipation Commonly known as: MIRALAX pregabalin 150 mg capsule TAKE 1 CAPSULE(150 MG) BY MOUTH EVERY NIGHT Commonly known as: LYRICA risperiDONE 2 mg tablet Take 1 tablet (2 mg total) by mouth nightly Commonly known as: RisperDAL Trulicity 0.75 mg/0.5 mL pen injector Inject 0.5 mL (0.75 mg total) under the skin once a week DUE FOR FOLLOW UP Generic drug: dulaglutide Outpatient Follow-Up: Future Appointments Date Time Provider Department Center 12/10/2021 4:20 PM Anant Kauffman MD [facility] 02/12/2022 3:45 PM Markie Ryan MD [id number] Specialty documented in this encounter Medications at Time [...] every 12 (twelve) hours 2 atorvastatin (LIPITOR) 40 mg tablet Take 1 tablet (40 mg total) by mouth daily 90 tablet 3 02/18/2021 2 BD Arlyn 2nd Gen Pen Needle 32 gauge x 5/32 needleIndications: Type 2 diabetes mellitus with diabetic neuropathy, with long-term current use of insulin ([facility]) USE TO INJECT BASAGLAR EVERY NIGHT AT BEDTIME 06/25/2021 3 benzonatate (TESSALON) 100 mg capsuleIndications :Cough Take 100 mg by mouth 3 (three) times a day as needed for cough 2 blood pressure monitor kit Check BP [...] ([facility]) Inject 0.5 mL (0.75 mg total) under the skin once a week DUE FOR FOLLOW UP 2 mL 11/11/2021 2 famotidine (PEPCID) 20 mg tabletIndications: Gastroesophageal reflux disease, unspecified whether esophagitis present Take 1 tablet (20 mg total) by mouth daily 30 tablet 10/21/2021 2 ferrous sulfate 325 mg (65 mg of elemental iron) tabletIndications: Iron Deficiency Anemia Take 1 tablet (325 mg total) by mouth daily with breakfast 30 tablet 10/21/2021 2 flash glucose scanning reader (FreeStyle Madhav 2 [place]) miscIndications:Ty pe 2 diabetes mellitus with diabetic [...] a day 60 tablet 11 10/16/2021 3 guaiFENesin ER (MUCINEX) 600 mg 12 hr tablet Take 1,200 mg by mouth 2 (two) times a day 2 insulin glargine (LANTUS, SEMGLEE) 100 unit/mL vial for injectionIndicatio ns:Diabetes Mellitus Inject 25 Units under the skin nightly 7.5 mL 11 09/18/2021 2 insulin lispro (HumaLOG, ADMELOG) 100 unit/mL pen for injection Inject 0-10 Units under the skin 3 (three) times a day with meals 15 mL 09/18/2021 2 lancets miscIndications:Un controlled type 2 diabetes mellitus [...] associated with type 2 diabetes mellitus (HCC) TAKE 1 CAPSULE(150 MG) BY MOUTH EVERY NIGHT 30 capsule 2 06/24/2021 2 risperiDONE (RisperDAL) 2 mg tablet Take 1 tablet (2 mg total) by mouth nightly 30 tablet 11 08/07/2021 3 syringe with needle, insulin (INSULIN SYRINGE-NEEDLE U-100 MISC) 3 times a day 09/12/2017 3 documented as of this encounter Discharge Disposition Disposition Code Departure Means Destination Discharge to [facility] documented in this encounter Progress Notes * Weston Ramirez MD - 11/26/2021 2:08 PM CDT Hospitalist Progress Note Chief Complaint: Patient is a 71 y.o. female with chief complaint of AMS . Interval History: No events on, pt feels much better, agreable to go to [facility] Allergies: No Known Allergies Medications: apixaban, 5 mg, oral, Q12H SOL atorvastatin, 40 mg, oral, Daily benzonatate, 100 mg, oral, TID carvediloL, 3.125 mg, oral, BID with meals (bkfst, dinner) famotidine, 20 mg, oral, Daily furosemide, 20 mg, oral, Daily guaiFENesin ER, 1,200 mg, oral, BID insulin glargine, 23 Units, subcutaneous, Nightly insulin lispro, 0-4 Units, subcutaneous, Nightly insulin lispro, 0-5 Units, subcutaneous, TID with meals insulin lispro, 6 Units, subcutaneous, TID with meals pregabalin, 150 mg, oral, Nightly risperiDONE, 2 mg, oral, Nightly sodium chloride 0.9%, 0.5-20 mL, intra-catheter, Q8H SOL Objective Vitals: 24hr Min/Max: Temp Min: 36.5 ??C (97.7 ??F) Max: 38.6 ??C (101.5 ??F) Pulse Min: 64 Max: 76 BP Min: 106/51 Max: 147/52 Resp Min: 16 Max: 18 SpO2 Min: 98 % Max: 100 % Most Recent : Vitals: 11/25/21 2040 11/26/21 0457 11/26/21 0805 11/26/21 1142 BP: 107/50 122/49 106/51 BP Location: Left arm Left arm Left arm Patient Position: HOB 30 degrees HOB 30 degrees HOB 30 degrees Pulse: 64 70 72 Resp: 18 16 16 Temp: 37.2 ??C (99 ??F) 36.8 ??C (98.2 ??F) 36.9 ??C (98.4 ??F) 36.9 ??C (98.4 ??F) TempSrc: Oral Oral Oral Oral SpO2: 98% 98% 99% Weight: 64.9 kg (143 lb 3 oz) Height: Intake/Output Summary (Last 24 hours) at 11/26/2021 1408 Last data filed at 11/26/2021 0730 Gross per 24 hour Intake -- Output 1200 ml Net -1200 ml Physical Exam: Gen:?Comfortable in bed,??NAD, on RA. HEENT: NCAT Heart: RRR Lungs: CTA, no rales. Abd: +BS, soft, NT Ext: moves all extremities; no edema Neuro:??alert and oriented to name, place and situation.? Psych:?Calm. Lab/Radiology/Diagnostic Review: Laboratory review: I have personally reviewed the following labs and my findings are CBC: Recent Labs Lab Units 11/25/212207 WBC K/cumm 10.2* HEMOGLOBIN g/dL 7.9* HEMATOCRIT % 24.9* MCV fL 89.2 MCH pg 28.3 MCHC g/dL 31.7* RDW CV % 14.9 RDWSD fL 48.8* MPV fL 11.1 CMP: Recent Labs Lab Units 11/26/21 1128 11/26/21 0733 06/06/22 2208 SODIUM mmol/L -- -- 141 POTASSIUM PLASMA mmol/L -- -- 4.1 CO2 mmol/L -- -- 21* BUN SERUM mg/dL -- -- 63* GLUCOSE mg/dL -- -- 135 POC GLUCOSE MONITOR mg/dL 165 < > -- CREATININE mg/dL -- -- 1.82* CALCIUM mg/dL -- -- 9.2 CHLORIDE mmol/L -- -- 112* ANIONGAP mmol/L -- -- 8 < > = values in this interval not displayed. LDH: Uric Acid: PT: PTT: Radiology: CT Chest WO Contrast Narrative: EXAMINATION: Computed tomography of the chest without intravenous contrast ?? HISTORY: Worsening cough, recently treated pneumonia. ?? TECHNIQUE: Transaxial computed tomographic images of the chest were obtained without intravenous contrast according to the standard protocol. ?? COMPARISON: No direct comparison available. Chest radiograph 11/15/2021. ?? FINDINGS: Patent central airways. There is mild smooth bronchial wall thickening in the lower lobes. Mild left greater than right bibasilar atelectasis without convincing consolidation. Left apical pleural-parenchymal scarring. There is a 3 mm nodule in the right upper lobe (table position -891.0). No pneumothorax or pleural effusion. ?? Normal heart size. No pericardial effusion. Coronary artery calcifications. Normal caliber thoracic aorta and main pulmonary artery. No supraclavicular, axillary, hilar or mediastinal lymphadenopathy. Calcified lung granulomas and hilar lymph nodes, in keeping with old granulomatous disease. ?? Images of the upper abdomen are unremarkable. ?? No suspicious osseous lesions. Impression: 1. Mild smooth bronchial wall thickening in the lower lobes without consolidation, possibly reflecting bronchitis or sequela of aspiration. 2. Right upper lobe 3 mm pulmonary nodule, indeterminate but likely infectious or inflammatory in etiology given the patient's history. Consider follow-up CT chest in one year to document resolution if there are clinical risk factors. ?? Dictated by: Poli Eagle MD PHD ?? The radiology attending physician has personally reviewed this study, and had reviewed and/or edited this written report and agrees with it. ?? Electronically signed by: La Nena Jean MD Assessment/Plan Pulmonary nodule Assessment & Plan CT chest: Right upper lobe 3 mm pulmonary nodule, indeterminate but likely infectious or inflammatory in etiology given the patient's history. Follow-up CT chest in one year to document resolution. ?? Left leg DVT ([facility]) ([facility]) Assessment & Plan Recently diagnosed at OSH. Continue eliquis -Check labs--6/7 AM. ?? Physical deconditioning Assessment & Plan Deconditioning 2/2 prolonged hospitalization. Daughter reports that prior to her illness, she was independent with a walker. - PT/OT [facility] SNF. [facility] ? 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 Follows with outpatient nephrology. Baseline seems to be around 2-2.3. At baseline on admission. ProBNP 176 on admit. - Cut down lasix to 20 mg daily for volume status maintenance. Adjust as needed. ?? Schizoaffective disorder, bipolar type ([facility]) ([facility]) Assessment & Plan Chronic, continue Risperdal, stable mood. ?? Dementia ([facility]) Assessment & Plan Diagnosed 3 years ago. AOx3 at baseline. 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 Has short term memory issues. Continue supportive care. ?? Hyperlipidemia associated with type 2 diabetes mellitus ([facility]) Assessment & Plan Continue statin ?? Type 2 diabetes mellitus with diabetic neuropathy, with long-term current use of insulin ([facility]) ([facility]) Assessment & Plan Home regimen includes lantus 25 units + Humalog 8 units with meals + SSI, trulicity. BG WNL on arrival. - Cut down lantus to 23 units with + 6 units mealtime + SSI, adjust as needed. Mostly under control. - Continue lyrica for neuropathy - HbA1C 8.2 ?? * Cough Assessment & Plan Persistent cough which is actually getting worse [...] - RVP +Metapneumovirus - supportive care, resolved. Weston Sher MD * Santo Vogel MSW - 11/26/2021 1:55 PM CDT 11/26/21 1353 Discharge Summary Chart reviewed For Medical Necessity Does patient have a planned readmission to hospital planned? No Discharge Disposition SNF, Medicaid, Short Term [facility]illed [facility] Contact Number [phone] Discharge Records Transfer Form Completed Discharge Additional Assistance Does the patient need discharge transport arranged? No Has discharge transport been arranged? No Post Discharge Care Provider Post Discharge Care Plan DC Summary has been faxed to next level of care provider (see Follow Up Providers) Social work spoke with Leslie in admissions, and patient has been accepted to [facility]. Patient and daughter, Areli, accepted placement and agreeable with the discharge plan. Patient is medically stable for discharge. Chart copied, Discharge Orders and Summary have been faxed to [phone], Transfer paperwork completed. Report: [phone] Patient's daughter, Areli, will provide transportation to facility. IM letter reviewed and faxed to HIM, . AKASH Marx PRN Straw Hat Brim Cutter Operator * Reuben Dillon MD - 11/25/2021 2:07 PM CDT Daily Progress Note Division of Hospital Medicine Name: Barbara Chakraborty Today: November 25, 2021 : 1950 Age: 71 y.o. female Admit: 11/15/2021 Bed: [id number] Subjective Chief complaint: Feels well , denies any cough or SOB. Interval History: - per d/w SW on 11/25, pend bed availability at [facility] ( pt,s family first preference). If not will call alternate places 11/26. Objective Medications: Scheduled: apixaban, 5 mg, oral, Q12H SOL atorvastatin, 40 mg, oral, Daily benzonatate, 100 mg, oral, TID carvediloL, 3.125 mg, oral, BID with meals (bkfst, dinner) famotidine, 20 mg, oral, Daily furosemide, 20 mg, oral, Daily guaiFENesin ER, 1,200 mg, oral, BID insulin glargine, 23 Units, subcutaneous, Nightly insulin lispro, 0-4 Units, subcutaneous, Nightly insulin lispro, 0-5 Units, subcutaneous, TID with meals insulin lispro, 6 Units, subcutaneous, TID with meals pregabalin, 150 mg, oral, Nightly risperiDONE, 2 mg, oral, Nightly sodium chloride 0.9%, 0.5-20 mL, intra-catheter, Q8H SOL Infusions: PRN: ??? acetaminophen ??? dextrose OR dextrose ??? glucagon ??? ondansetron ODT OR ondansetron ??? polyethylene glycol ??? ramelteon ??? sodium chloride 0.9% Vitals: 24hr Min/Max: Temp Min: 36.4 ??C (97.5 ??F) Max: 36.9 ??C (98.4 ??F) Pulse Min: 67 Max: 73 BP Min: 115/49 Max: 140/57 Resp Min: 18 Max: 20 SpO2 Min: 98 % Max: 100 % Most Recent: Vitals: 11/25/21 0835 BP: 115/49 Pulse: 68 Resp: 20 Temp: 36.5 ??C (97.7 ??F) SpO2: 100% Intake/Output Summary (Last 24 hours) at 11/25/2021 1400 Last data filed at 11/25/2021 0425 Gross per 24 hour Intake 360 ml Output 1650 ml Net -1290 ml Physical Exam Gen: Comfortable in bed, NAD, on RA. HEENT: NCAT Heart: RRR Lungs: CTA, no rales. Abd: +BS, soft, NT Ext: moves all extremities; no edema Neuro: alert and oriented to name, place and situation. Psych: Calm. Lab/Diagnostic Review: Recent Results (from the past 36 hour(s)) POCT glucose Collection Time: 11/24/21 7:18 AM Result Value Ref Range Glucose, POC 187 70 - 199 mg/dL POCT glucose Collection Time: 11/24/21 11:28 AM Result Value Ref Range Glucose, POC 226 (H) 70 - 199 mg/dL POCT glucose Collection Time: 11/24/21 3:06 PM Result Value Ref Range Glucose, POC 125 70 - 199 mg/dL POCT glucose Collection Time: 11/24/21 4:59 PM Result Value Ref Range Glucose, POC 104 70 - 199 mg/dL POCT glucose Collection Time: 11/24/21 8:29 PM Result Value Ref Range Glucose, POC 168 70 - 199 mg/dL POCT glucose Collection Time: 11/25/21 8:32 AM Result Value Ref Range Glucose, POC 140 70 - 199 mg/dL POCT glucose Collection Time: 11/25/21 12:09 PM Result Value Ref Range Glucose, POC 224 (H) 70 - 199 mg/dL I have reviewed the laboratory results. Imaging Results: CT Chest WO Contrast Narrative: EXAMINATION: Computed tomography of the chest without intravenous contrast HISTORY: Worsening cough, recently treated pneumonia. TECHNIQUE: Transaxial computed tomographic images of the chest were obtained without intravenous contrast according to the standard protocol. COMPARISON: No direct comparison available. Chest radiograph 11/15/2021. FINDINGS: Patent central airways. There is mild smooth bronchial wall thickening in the lower lobes. Mild left greater than right bibasilar atelectasis without convincing consolidation. Left apical pleural-parenchymal scarring. There is a 3 mm nodule in the right upper lobe (table position -891.0). No pneumothorax or pleural effusion. Normal heart size. No pericardial effusion. Coronary artery calcifications. Normal caliber thoracic aorta and main pulmonary artery. No supraclavicular, axillary, hilar or mediastinal lymphadenopathy. Calcified lung granulomas and hilar lymph nodes, in keeping with old granulomatous disease. Images of the upper abdomen are unremarkable. No suspicious osseous lesions. Impression: 1. Mild smooth bronchial wall thickening in the lower lobes without consolidation, possibly reflecting bronchitis or sequela of aspiration. 2. Right upper lobe 3 mm pulmonary nodule, indeterminate but likely infectious or inflammatory in etiology given the patient's history. Consider follow-up CT chest in one year to document resolution if there are clinical risk factors. Dictated by: Poli Eagle MD PHD The radiology attending physician has personally reviewed this study, and had reviewed and/or edited this written report and agrees with it. Electronically signed by: La Nena Jean MD Assessment/Plan Pulmonary nodule Assessment & Plan CT chest: Right upper lobe 3 mm pulmonary nodule, indeterminate but likely infectious or inflammatory in etiology given the patient's history. Follow-up CT chest in one year to document resolution. Left leg DVT ([facility] ([facility]) Assessment & Plan Recently diagnosed at OSH. Continue eliquis -Check labs--6/7 AM. Physical deconditioning Assessment & Plan Deconditioning 2/2 prolonged hospitalization. Daughter reports that prior to her illness, she was independent with a walker. - PT/OT recommends SNF. -Plan [facility], [facility] on 11/26 ? 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 Follows with outpatient nephrology. Baseline seems to be around 2-2.3. At baseline on admission. ProBNP 176 on admit. - Cut down lasix to 20 mg daily for volume status maintenance. Adjust as needed. Schizoaffective disorder, bipolar type ([facility] ([facility]) Assessment & Plan Chronic, continue Risperdal, stable mood. Dementia ([facility]) Assessment & Plan Diagnosed 3 years ago. AOx3 at baseline. 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 Has short term memory issues. Continue supportive care. Hyperlipidemia associated with type 2 diabetes mellitus ([facility]) Assessment & Plan Continue statin Type 2 diabetes mellitus with diabetic neuropathy, with long-term current use of insulin ([facility] ([facility]) Assessment & Plan Home regimen includes lantus 25 units + Humalog 8 units with meals + SSI, trulicity. BG WNL on arrival. - Cut down lantus to 23 units with + 6 units mealtime + SSI, adjust as needed. Mostly under control. - Continue lyrica for neuropathy - HbA1C 8.2 * Cough Assessment & Plan Persistent cough which is actually getting worse [...] - RVP +Metapneumovirus - supportive care, resolved. * Jo Villeda, PT - 11/25/2021 1:56 PM CDT Physical Therapy Physical Therapy Progress Note NOTE: This is a summary note of the north components of the treatment session. For full details, review chart for all flowsheets documented on by this physical therapy clinician on this date. Vital signs documented in vital signs flowsheet. Care plan progress documented in Care Plan Activity. For questions, please review the treatment team and contact the PT or CARE PROFESSIONAL currently assigned to this patient. If a physical therapy clinician is not assigned to this patient, please call [phone]. 11/25/21 1354 PT Last Visit Session Type Treatment PT Received On 11/25/21 Safe Environment Arm Band Checked;Call Light within Reach;Notified RN;Chair Alarm placed and activated;Session Completed Bedside;Patient found sitting in Chair;Overbed Table within Reach Subjective Agreeable to Therapy Subjective Comment I do need to use the bathroom Family/Caregiver Present No Precautions Precautions Fall risk Precaution Comments PPE worn: surgical mask and gloves Activity Tolerance Activity Tolerance Comments Yaneth: not rated Pain Assessment Pain Assessment No/denies pain Cognition Arousal/Alertness Alert;Inconsistent responses to stimuli Orientation Oriented to person;Oriented to place;Oriented to situation Following Commands Follows one step commands with repetition Balance Balance Yes Static Sitting Balance Static Sitting-Balance Support Feet supported;No upper extremity supported Static Sitting-Sitting Surface Chair Static Sitting-Level of Assistance Close supervision Static Sitting-Comment/# of Minutes for safety Dynamic Sitting Balance Dynamic Sitting-Balance Support Feet supported;No upper extremity supported Dynamic Sitting-Balance Lateral lean;Forward lean;Reaching for objects Dynamic Sitting-Sitting Surface Chair Dynamic Sitting-Level of Assistance Close supervision Dynamic Sitting-Comments for safety Static Standing Balance Static Standing-Balance Support Bilateral upper extremity supported (on w/w) Static Standing-Standing Surface Floor Static Standing-Level of Assistance Close supervision Static Standing-Comment/# of Minutes for safety Dynamic Standing Balance Dynamic Standing-Balance Support Unilateral upper extremity supported;No upper extremity supported Dynamic Standing-Balance Lateral lean;Forward lean;Reaching for objects Dynamic Standing-Standing Surface Floor Dynamic Standing-Level of Assistance Contact guard Dynamic Standing-Comments for safety and balance Equipment Use Equipment Use Comments gait belt used Bed Mobility Bed Mobility No Transfers Transfer Yes Transfer 1 Transfer From 1 Sit;Chair with arms Transfer Type 1 To and from Transfer to 1 Stand Technique 1 Sit to stand;Stand to sit Transfer Device 1 Wheeled walker Transfer Level of Assistance 1 Minimum Assist;Moderate verbal cues Trials/Comments 1 Decreased force production , cues for hand placement, increased time to complete transfer Transfers 2 Transfer From 2 Sit;Toilet Transfer Type 2 To and from Transfer to 2 Stand Technique 2 Sit to stand;Stand to sit Transfer Device 2 Wheeled walker Transfer Level of Assistance 2 Moderate Assist Trials/Comments 2 Patient requires increased assistance from lower surface, cues for hand placement, decreased force production Ambulation Ambulation Yes Ambulation 1 Distance (ft) 1 40 Surface 1 Level tile Device 1 Wheeled walker Assistance 1 Minimum Assist Gait: Requires assist with 1 Maintaining balance;Maintaining hip extension Gait: Requires verbal cues to 1 Use assistive device safely;Utilize appropriate gait sequencing;Improve upright posture;Increase step length;Increase base of support;Pace activity Quality of Gait 1 Decreased lanny, decreased step height and length, patient with forward flexed posture that she is able to correct with cues from therapist for hip extension Stairs Stairs No Basic Mobility - 6 Click How much difficulty does the patient have: Turning over in bed 3 How much difficulty does the patient currently have: Sitting down and standing up from a chair witharms? 2 How much difficulty does the patient have: Moving from lying on back to sitting on the side of the bed? 3 How much difficulty does the patient have: Moving to and from a bed to a chair including wheelchair? 2 How much help does the patient currently need: Walk in hospital room? 2 How much help from another person does the patient currently need: Climbing 3-5 steps with a railing? 2 Total 6 Click Score (range 6-24) 14 Score Interpretation 35.55 Assessment Prognosis Good Problem List Gait deviations;Decreased strength;Decreased endurance;Impaired balance;Decreased mobility Barriers to Discharge Current Mobility Status Plan Plan Continue with current plan;If this is the last note, consider this the discharge summary Recommendation/Plan PT Recommendation/Plan [facility] Facility PT Frequency 2-3x/wk Treatment/Interventions Balance Training;Bed mobility;Endurance training;Functional activity;Functional transfer training;Gait training;Stair training;Strengthening;Therapeutic activity;Therapeutic exercise;Transfer training Progress Slow progress, decreased activity tolerance PT - Next Appointment 11/27/21 Multi-Disciplinary Problems (from Physical Therapy) Active Problems Problem: Mobility Start Date: 11/17/21 Goal Start Date Expected End Date End Date LTG - Patient will ambulate household distance 11/17/21 12/20/21 -- Goal Details: With a wheeled walker and modified independence. Goal Start Date Expected End Date End Date STG - Patient will ambulate 11/17/21 12/06/21 -- Goal Details: 150 feet with supervision with appropriate assistive device with vitals stable. Problem: Transfers Start Date: 11/17/21 Goal Start Date Expected End Date End Date STG - Patient to transfer to and from sit to supine 11/17/21 12/06/21 -- Goal Details: With supervision. Goal Start Date Expected End Date End Date STG - Patient will transfer sit to and from stand 11/17/21 12/06/21 -- Goal Details: With supervision. * Nelly Levine, OT - 11/25/2021 1:14 PM CDT Occupational Therapy Occupational Therapy Progress Note NOTE: This is a summary note of the north components of the treatment session. For full details, review chart for all flowsheets documented on by this occupational therapy clinician on this date. Vitalsigns documented in vital signs flowsheet. Care plan progress documented in Care Plan Activity. For questions, please review the treatment team and contact the occupational therapist currently assigned to this patient. If an occupational therapist is not assigned to this patient, please call [phone]. 11/25/21 0953 General Session Type Treatment OT Received On 11/25/21 Safe Environment Arm Band Checked;Call Light within Reach;Notified RN;Patient found in Supine;Overbed Table within Reach (Pt left in chair with all needs met) Subjective Agreeable to Therapy Family/Caregiver Present No Precautions Precautions Fall risk Pain Assessment Pain Assessment No/denies pain Pain Score 0 - No pain Balance Balance Yes Static Sitting Balance Static Sitting-Balance Support Feet supported;No upper extremity supported Static Sitting-Sitting Surface Bed;Chair Static Sitting-Level of Assistance Close supervision Static Sitting-Comment/# of Minutes safety Dynamic Sitting Balance Dynamic Sitting-Balance Support Feet supported;No upper extremity supported Dynamic Sitting-Balance Lateral lean;Forward lean;Reaching for objects Dynamic Sitting-Sitting Surface Bed;Chair Dynamic Sitting-Level of Assistance Close supervision Dynamic Sitting-Comments safety Static Standing Balance Static Standing-Balance Support Bilateral upper extremity supported (using WW) Static Standing-Standing Surface Floor Static Standing-Level of Assistance Close supervision Static Standing-Comment/# of Minutes safety Dynamic Standing Balance Dynamic Standing-Balance Support No upper extremity supported Dynamic Standing-Balance Lateral lean;Forward lean;Reaching for objects Dynamic Standing-Standing Surface Floor Dynamic Standing-Level of Assistance Contact guard Dynamic Standing-Comments safety 2/2 decreased balance ADL ADLS (WDL) X Grooming Grooming: Where assessed Chair Grooming: Level of assistance Moderate Assist Grooming: Assistance with Increased time to complete;Safety LE Dressing LE Dressing: Where assessed Edge of bed LE Dressing: Level of assistance Moderate Assist LE Dressing: Assistance with Don/doff R sock;Don/doff L sock;Thread RLE into pants;Thread LLE into pants;Thread RLE into underwear;Thread LLE into underwear Toileting Toileting: Where assessed Bedside Commode Toileting: Level of assistance Moderate Assist Toileting: Assistance with Posterior;Increased time to complete;Clothing management up Bed Mobility Bed Mobility Yes Bed Mobility 1 Bed Mobility From 1 Supine Bed Mobility Type 1 To Bed Mobility to 1 Edge of bed Level of Assistance 1 Minimum Assist Bed Mobility Comments 1 Pt required assist for trunk elevation, force production, manuevering of BLE Transfers Transfer Yes Transfer 1 Transfer From 1 Sit Transfer Type 1 To and from Transfer to 1 Stand Technique 1 Sit to stand;Stand to sit Transfer Device 1 Wheeled walker Transfer Level of Assistance 1 Moderate Assist Trials/Comments 1 Pt required assist for safety, balance, and force production Transfers 2 Trials/Comments 2 Pt able to complete mobility for short distances with min A using WW Toilet Transfers Toilet Transfer From Bed Toilet Transfer Type To Toilet Transfer to Standard bedside commode Toilet Transfer Technique (stand and step) Toilet Transfer: Equipment Wheeled walker Toilet Transfers Minimal assistance Toilet Transfers Comments Pt required assist for safety, balance, and force production Cognition Arousal/Alertness Alert;Inconsistent responses to stimuli Attention Span Appears intact Current communication Appears Intact Orientation Oriented to person;Oriented to place;Oriented to situation Following Commands Follows one step commands with increased time Safety Judgment Decreased awareness of need for assistance Awareness of Errors Assistance required to correct errors made;Assistance required to identify errors made Insight Decreased awareness of deficits Problem Solving Assistance required to implement solutions;Assistance required to generate solutions;Assistance required to identify errors made Compliance/Behavior Easy to engage Perseveration Not present Daily Activity - 6 Clicks Putting on and taking off regular lower body clothing 2 Bathing 2 Toileting 2 Putting on and taking off upper body clothing 3 Personal Grooming 2 Eating Meals 3 Total Score (range 6-24) 14 Score Interpretation 33.39 Assessment Problem List Decreased safe judgment during ADL;Decreased endurance;Decreased cognition;Decreased balance;Decreased functional mobility;Decreased ADL independence;Decreased IADL independence Barriers to Discharge Current Mobility Status;Decreased safety awareness Barrier Comments fall risk Plan Plan Continue with current plan;If this is the last note, consider this the discharge summary Recommendation/Plan OT Recommendation [facility] Facility OT Frequency 2-3x/wk Treatment/Interventions ADL/IADL retraining;Balance Training;Bed mobility;Endurance training;Functional activity;Functional mobility training;Functional transfer training;Strengthening;Therapeutic act ivity;Therapeutic exercise;Transfer training OT Equipment Recommended Wheeled walker Progress Progressing toward goals OT - Next Appointment 11/27/21 Multi-Disciplinary Problems (from Occupational Therapy) Active Problems Problem: Toileting Start Date: 11/17/21 Goal Start Date Expected End Date End Date STG - Patient will complete toileting tasks with min A 11/17/21 12/02/21 -- Problem: Transfers Start Date: 11/17/21 Goal Start Date Expected End Date End Date STG - Patient will perform toilet transfer with spv to standard toilet 11/17/21 12/02/21 -- Problem: OT Misc Start Date: 11/17/21 Goal Start Date Expected End Date End Date OT LTG - Pt will complete ADLs with spv 11/17/21 12/24/21 -- * Reuben Dillon MD - 11/24/2021 2:07 PM CDT Daily Progress Note Division of Hospital Medicine Name: Barbara Chakraborty Today: November 24, 2021 : 1950 Age: 71 y.o. female Admit: 11/15/2021 Bed: [id number] Subjective Chief complaint: Stable with no SOB or CP etc.No cough. Interval History: -Plan [facility], [facility] tomorrow. Objective Medications: Scheduled: apixaban, 5 mg, oral, Q12H SOL atorvastatin, 40 mg, oral, Daily benzonatate, 100 mg, oral, TID carvediloL, 3.125 mg, oral, BID with meals (bkfst, dinner) famotidine, 20 mg, oral, Daily furosemide, 20 mg, oral, Daily guaiFENesin ER, 1,200 mg, oral, BID insulin glargine, 23 Units, subcutaneous, Nightly insulin lispro, 0-4 Units, subcutaneous, Nightly insulin lispro, 0-5 Units, subcutaneous, TID with meals insulin lispro, 6 Units, subcutaneous, TID with meals pregabalin, 150 mg, oral, Nightly risperiDONE, 2 mg, oral, Nightly sodium chloride 0.9%, 0.5-20 mL, intra-catheter, Q8H SOL Infusions: PRN: ??? acetaminophen ??? dextrose OR dextrose ??? glucagon ??? ondansetron ODT OR ondansetron ??? polyethylene glycol ??? ramelteon ??? sodium chloride 0.9% Vitals: 24hr Min/Max: Temp Min: 36.5 ??C (97.7 ??F) Max: 36.9 ??C (98.4 ??F) Pulse Min: 71 Max: 78 BP Min: 110/42 Max: 139/63 Resp Min: 18 Max: 20 SpO2 Min: 97 % Max: 100 % Most Recent: Vitals: 11/24/21 1100 BP: 124/53 Pulse: 74 Resp: 18 Temp: 36.5 ??C (97.7 ??F) SpO2: 98% Intake/Output Summary (Last 24 hours) at 11/24/2021 1404 Last data filed at 11/24/2021 0520 Gross per 24 hour Intake -- Output 450 ml Net -450 ml Physical Exam Gen: Comfortable in bed, NAD, on RA. HEENT: NCAT Heart: RRR Lungs: CTA, no rales or wheezing. Abd: +BS, soft, NT Ext: moves all extremities; no edema Neuro: Alert and oriented to name, place and situation. Psych: Cam. Lab/Diagnostic Review: Recent Results (from the past 36 hour(s)) POCT glucose Collection Time: 11/23/21 7:25 AM Result Value Ref Range Glucose, POC 131 70 - 199 mg/dL POCT glucose Collection Time: 11/23/21 11:40 AM Result Value Ref Range Glucose, POC 169 70 - 199 mg/dL POCT glucose Collection Time: 11/23/21 4:57 PM Result Value Ref Range Glucose, POC 192 70 - 199 mg/dL Glucose comment 1 Glu2: RN/MD Notified POCT glucose Collection Time: 11/23/21 9:16 PM Result Value Ref Range Glucose, POC 203 (H) 70 - 199 mg/dL POCT glucose Collection Time: 11/24/21 7:18 AM Result Value Ref Range Glucose, POC 187 70 - 199 mg/dL POCT glucose Collection Time: 11/24/21 11:28 AM Result Value Ref Range Glucose, POC 226 (H) 70 - 199 mg/dL I have reviewed the laboratory results. Imaging Results: CT Chest WO Contrast Narrative: EXAMINATION: Computed tomography of the chest without intravenous contrast HISTORY: Worsening cough, recently treated pneumonia. TECHNIQUE: Transaxial computed tomographic images of the chest were obtained without intravenous contrast according to the standard protocol. COMPARISON: No direct comparison available. Chest radiograph 11/15/2021. FINDINGS: Patent central airways. There is mild smooth bronchial wall thickening in the lower lobes. Mild left greater than right bibasilar atelectasis without convincing consolidation. Left apical pleural-parenchymal scarring. There is a 3 mm nodule in the right upper lobe (table position -891.0). No pneumothorax or pleural effusion. Normal heart size. No pericardial effusion. Coronary artery calcifications. Normal caliber thoracic aorta and main pulmonary artery. No supraclavicular, axillary, hilar or mediastinal lymphadenopathy. Calcified lung granulomas and hilar lymph nodes, in keeping with old granulomatous disease. Images of the upper abdomen are unremarkable. No suspicious osseous lesions. Impression: 1. Mild smooth bronchial wall thickening in the lower lobes without consolidation, possibly reflecting bronchitis or sequela of aspiration. 2. Right upper lobe 3 mm pulmonary nodule, indeterminate but likely infectious or inflammatory in etiology given the patient's history. Consider follow-up CT chest in one year to document resolution if there are clinical risk factors. Dictated by: Poli Eagle MD PHD The radiology attending physician has personally reviewed this study, and had reviewed and/or edited this written report and agrees with it. Electronically signed by: La Nena Jean MD Assessment/Plan Pulmonary nodule Assessment & Plan CT chest: Right upper lobe 3 mm pulmonary nodule, indeterminate but likely infectious or inflammatory in etiology given the patient's history. Follow-up CT chest in one year to document resolution. Left leg DVT ([facility] ([facility]) Assessment & Plan Recently diagnosed at OSH. Continue eliquis Physical deconditioning Assessment & Plan Deconditioning 2/2 prolonged hospitalization. Daughter reports that prior to her illness, she was independent with a walker. - PT/OT recommends SNF. -Plan [facility] [place] on 11/25. 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 Follows with outpatient nephrology. Baseline seems to be around 2-2.3. At baseline on admission. ProBNP 176 on admit. - Cut down lasix to 20 mg daily for volume status maintenance. Adjust as needed. Schizoaffective disorder, bipolar type ([facility]) ([facility]) Assessment & Plan Continue Risperdal, stable mood. Dementia ([facility]) Assessment & Plan Diagnosed 3 years ago. AOx3 at baseline. 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 Has short term memory issues. Continue supportive care. Hyperlipidemia associated with type 2 diabetes mellitus ([facility]) Assessment & Plan Continue statin Type 2 diabetes mellitus with diabetic neuropathy, with long-term current use of insulin ([facility] ([facility]) Assessment & Plan Home regimen includes lantus 25 units + Humalog 8 units with meals + SSI, trulicity. BG WNL on arrival. - Cut down lantus to 23 units with + 6 units mealtime + SSI, adjust as needed. - Continue lyrica for neuropathy - HbA1C 8.2 * Cough Assessment & Plan Persistent cough which is actually getting worse [...] - RVP +Metapneumovirus - supportive care, resolved. * Reuben Dillon MD - 11/23/2021 12:24 PM CDT Daily Progress Note Division of Hospital Medicine Name: Barbara Chakraborty Today: November 23, 2021 : 1950 Age: 71 y.o. female Admit: 11/15/2021 Bed: [id number] Subjective Chief complaint: Stable with no complaints. Interval History: - D/w on 11/22, [facility] on Thursday. Objective Medications: Scheduled: apixaban, 5 mg, oral, Q12H SOL atorvastatin, 40 mg, oral, Daily benzonatate, 100 mg, oral, TID carvediloL, 3.125 mg, oral, BID with meals (bkfst, dinner) famotidine, 20 mg, oral, Daily furosemide, 20 mg, oral, Daily guaiFENesin ER, 1,200 mg, oral, BID insulin glargine, 23 Units, subcutaneous, Nightly insulin lispro, 0-4 Units, subcutaneous, Nightly insulin lispro, 0-5 Units, subcutaneous, TID with meals insulin lispro, 6 Units, subcutaneous, TID with meals pregabalin, 150 mg, oral, Nightly risperiDONE, 2 mg, oral, Nightly sodium chloride 0.9%, 0.5-20 mL, intra-catheter, Q8H SOL Infusions: PRN: ??? acetaminophen ??? dextrose OR dextrose ??? glucagon ??? ondansetron ODT OR ondansetron ??? polyethylene glycol ??? ramelteon ??? sodium chloride 0.9% Vitals: 24hr Min/Max: Temp Min: 36.4 ??C (97.5 ??F) Max: 37 ??C (98.6 ??F) Pulse Min: 66 Max: 73 BP Min: 105/56 Max: 134/59 Resp Min: 18 Max: 20 SpO2 Min: 95 % Max: 98 % Most Recent: Vitals: 11/23/21 1142 BP: 126/64 Pulse: 71 Resp: 20 Temp: 36.4 ??C (97.5 ??F) SpO2: 97% Intake/Output Summary (Last 24 hours) at 11/23/2021 1221 Last data filed at 11/23/2021 0700 Gross per 24 hour Intake 120 ml Output -- Net 120 ml Physical Exam Gen: Comfortable in bed, NAD, on RA. HEENT: NCAT Heart: RRR Lungs: CTA, no rales. Abd: +BS, soft, NT Ext: moves all extremities; no edema Neuro: alert and oriented to name, place . Psych: Calm. Lab/Diagnostic Review: Recent Results (from the past 36 hour(s)) POCT glucose Collection Time: 11/22/21 7:28 AM Result Value Ref Range Glucose, POC 156 70 - 199 mg/dL POCT glucose Collection Time: 11/22/21 11:01 AM Result Value Ref Range Glucose, POC 214 (H) 70 - 199 mg/dL POCT glucose Collection Time: 11/22/21 4:44 PM Result Value Ref Range Glucose, POC 147 70 - 199 mg/dL POCT glucose Collection Time: 11/22/21 7:43 PM Result Value Ref Range Glucose, POC 115 70 - 199 mg/dL POCT glucose Collection Time: 11/23/21 7:25 AM Result Value Ref Range Glucose, POC 131 70 - 199 mg/dL POCT glucose Collection Time: 11/23/21 11:40 AM Result Value Ref Range Glucose, POC 169 70 - 199 mg/dL I have reviewed the laboratory results. Imaging Results: CT Chest WO Contrast Narrative: EXAMINATION: Computed tomography of the chest without intravenous contrast HISTORY: Worsening cough, recently treated pneumonia. TECHNIQUE: Transaxial computed tomographic images of the chest were obtained without intravenous contrast according to the standard protocol. COMPARISON: No direct comparison available. Chest radiograph 11/15/2021. FINDINGS: Patent central airways. There is mild smooth bronchial wall thickening in the lower lobes. Mild left greater than right bibasilar atelectasis without convincing consolidation. Left apical pleural-parenchymal scarring. There is a 3 mm nodule in the right upper lobe (table position -891.0). No pneumothorax or pleural effusion. Normal heart size. No pericardial effusion. Coronary artery calcifications. Normal caliber thoracic aorta and main pulmonary artery. No supraclavicular, axillary, hilar or mediastinal lymphadenopathy. Calcified lung granulomas and hilar lymph nodes, in keeping with old granulomatous disease. Images of the upper abdomen are unremarkable. No suspicious osseous lesions. Impression: 1. Mild smooth bronchial wall thickening in the lower lobes without consolidation, possibly reflecting bronchitis or sequela of aspiration. 2. Right upper lobe 3 mm pulmonary nodule, indeterminate but likely infectious or inflammatory in etiology given the patient's history. Consider follow-up CT chest in one year to document resolution if there are clinical risk factors. Dictated by: Poli Eagle MD PHD The radiology attending physician has personally reviewed this study, and had reviewed and/or edited this written report and agrees with it. Electronically signed by: La Nena Jean MD Assessment/Plan Pulmonary nodule Assessment & Plan CT chest: Right upper lobe 3 mm pulmonary nodule, indeterminate but likely infectious or inflammatory in etiology given the patient's history. Follow-up CT chest in one year to document resolution. Left leg DVT ([facility] ([facility]) Assessment & Plan Recently diagnosed at OSH. Continue eliquis Physical deconditioning Assessment & Plan Deconditioning 2/2 prolonged hospitalization. Daughter reports that prior to her illness, she was independent with a walker. - PT/OT recommends SNF. -Plan [facility] on 11/25. 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 Follows with outpatient nephrology. Baseline seems to be around 2-2.3. At baseline on admission. ProBNP 176 on admit. - Cut down lasix to 20 mg daily for volume status maintenance. Adjust as needed. Schizoaffective disorder, bipolar type ([facility]/HCC) ([facility]) Assessment & Plan Continue Risperdal, stable mood. Dementia ([facility]) Assessment & Plan Diagnosed 3 years ago. AOx3 at baseline. 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 Has short term memory issues. Continue supportive care. Hyperlipidemia associated with type 2 diabetes mellitus ([facility]) Assessment & Plan Continue statin Type 2 diabetes mellitus with diabetic neuropathy, with long-term current use of insulin ([facility]) ([facility]) Assessment & Plan Home regimen includes lantus 25 units + Humalog 8 units with meals + SSI, trulicity. BG WNL on arrival. - Cut down lantus to 23 units with + 6 units mealtime + SSI, adjust as needed. - Continue lyrica for neuropathy - HbA1C 8.2 * Cough Assessment & Plan Persistent cough which is actually getting worse [...] - RVP +Metapneumovirus - supportive care, improved. * Reuben Dillon MD - 11/22/2021 1:35 PM CDT Daily Progress Note Division of Hospital Medicine Name: Barbara Chakraborty Today: November 22, 2021 : 1950 Age: 71 y.o. female Admit: 11/15/2021 Bed: [id number] Subjective Chief complaint: Doing well with no complaints. Denies any URI sx. Interval History: - Per D/w SW on 11/22, plan to d/c to [facility] on Thursday ( bed available on Thursday). Family prefers [facility] facility. Objective Medications: Scheduled: apixaban, 5 mg, oral, Q12H SOL atorvastatin, 40 mg, oral, Daily benzonatate, 100 mg, oral, TID carvediloL, 3.125 mg, oral, BID with meals (bkfst, dinner) famotidine, 20 mg, oral, Daily furosemide, 20 mg, oral, Daily guaiFENesin ER, 1,200 mg, oral, BID insulin glargine, 23 Units, subcutaneous, Nightly insulin lispro, 0-4 Units, subcutaneous, Nightly insulin lispro, 0-5 Units, subcutaneous, TID with meals insulin lispro, 6 Units, subcutaneous, TID with meals pregabalin, 150 mg, oral, Nightly risperiDONE, 2 mg, oral, Nightly sodium chloride 0.9%, 0.5-20 mL, intra-catheter, Q8H SOL Infusions: PRN: ??? acetaminophen ??? dextrose OR dextrose ??? glucagon ??? ondansetron ODT OR ondansetron ??? polyethylene glycol ??? ramelteon ??? sodium chloride 0.9% Vitals: 24hr Min/Max: Temp Min: 36.5 ??C (97.7 ??F) Max: 36.9 ??C (98.4 ??F) Pulse Min: 69 Max: 73 BP Min: 111/58 Max: 137/45 Resp Min: 16 Max: 18 SpO2 Min: 93 % Max: 100 % Most Recent: Vitals: 11/22/21 1059 BP: 130/57 Pulse: 69 Resp: 18 Temp: 36.5 ??C (97.7 ??F) SpO2: 93% No intake or output data in the 24 hours ending 11/22/21 1330 Physical Exam Gen: Comfortable in bed, NAD, on RA. HEENT: NCAT Heart: RRR Lungs: CTA, no rales. Abd: +BS, soft, NT Ext: moves all extremities; no edema Neuro: Alert and oriented to name, place and situation. Psych: Cam. Lab/Diagnostic Review: Recent Results (from the past 36 hour(s)) POCT glucose Collection Time: 11/21/21 7:46 AM Result Value Ref Range Glucose, POC 128 70 - 199 mg/dL POCT glucose Collection Time: 11/21/21 11:30 AM Result Value Ref Range Glucose, POC 160 70 - 199 mg/dL POCT glucose Collection Time: 11/21/21 4:46 PM Result Value Ref Range Glucose, POC 180 70 - 199 mg/dL POCT glucose Collection Time: 11/21/21 9:42 PM Result Value Ref Range Glucose, POC 210 (H) 70 - 199 mg/dL POCT glucose Collection Time: 11/22/21 7:28 AM Result Value Ref Range Glucose, POC 156 70 - 199 mg/dL POCT glucose Collection Time: 11/22/21 11:01 AM Result Value Ref Range Glucose, POC 214 (H) 70 - 199 mg/dL I have reviewed the laboratory results. Imaging Results: CT Chest WO Contrast Narrative: EXAMINATION: Computed tomography of the chest without intravenous contrast HISTORY: Worsening cough, recently treated pneumonia. TECHNIQUE: Transaxial computed tomographic images of the chest were obtained without intravenous contrast according to the standard protocol. COMPARISON: No direct comparison available. Chest radiograph 11/15/2021. FINDINGS: Patent central airways. There is mild smooth bronchial wall thickening in the lower lobes. Mild left greater than right bibasilar atelectasis without convincing consolidation. Left apical pleural-parenchymal scarring. There is a 3 mm nodule in the right upper lobe (table position -891.0). No pneumothorax or pleural effusion. Normal heart size. No pericardial effusion. Coronary artery calcifications. Normal caliber thoracic aorta and main pulmonary artery. No supraclavicular, axillary, hilar or mediastinal lymphadenopathy. Calcified lung granulomas and hilar lymph nodes, in keeping with old granulomatous disease. Images of the upper abdomen are unremarkable. No suspicious osseous lesions. Impression: 1. Mild smooth bronchial wall thickening in the lower lobes without consolidation, possibly reflecting bronchitis or sequela of aspiration. 2. Right upper lobe 3 mm pulmonary nodule, indeterminate but likely infectious or inflammatory in etiology given the patient's history. Consider follow-up CT chest in one year to document resolution if there are clinical risk factors. Dictated by: Poli Eagle MD PHD The radiology attending physician has personally reviewed this study, and had reviewed and/or edited this written report and agrees with it. Electronically signed by: La Nena Jean MD Assessment/Plan Pulmonary nodule Assessment & Plan CT chest: Right upper lobe 3 mm pulmonary nodule, indeterminate but likely infectious or inflammatory in etiology given the patient's history. Follow-up CT chest in one year to document resolution. Left leg DVT (CMS/HCC) (HCC) Assessment & Plan Recently diagnosed at OSH. Continue eliquis Physical deconditioning Assessment & Plan Deconditioning 2/2 prolonged hospitalization. Daughter reports that prior to her illness, she was independent with a walker. - PT/OT recommends SNF. -Plan [facility] on 11/25. 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 Follows with outpatient nephrology. Baseline seems to be around 2-2.3. At baseline on admission. ProBNP 176 on admit. - Cut down lasix to 20 mg daily for volume status maintenance. Adjust as needed. Schizoaffective disorder, bipolar type (CMS/HCC) (HCC) Assessment & Plan Continue risperidal Dementia (HCC) Assessment & Plan Diagnosed 3 years ago. AOx3 at baseline. 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 Has short term memory issues. Continue supportive care. Hyperlipidemia associated with type 2 diabetes mellitus (HCC) Assessment & Plan Continue statin Type 2 diabetes mellitus with diabetic neuropathy, with long-term current use of insulin ([facility] ([facility]) Assessment & Plan Home regimen includes lantus 25 units + Humalog 8 units with meals + SSI, trulicity. BG WNL on arrival. - Cut down lantus to 23 units with + 6 units mealtime + SSI, adjust as needed. - Continue lyrica for neuropathy - HbA1C 8.2 * Cough Assessment & Plan Persistent cough which is actually getting worse [...] - RVP +Metapneumovirus - supportive care, improved. * Reuben Dillon MD - 11/21/2021 12:14 PM CDT Daily Progress Note Division of Hospital Medicine Name: Barbara Chakraborty Today: November 21, 2021 : 1950 Age: 71 y.o. female Admit: 11/15/2021 Bed: [place] [id number] Subjective Chief complaint: Denies any SOB or pain. Interval History: -pend placement, referrals placed, as per . Objective Medications: Scheduled: apixaban, 5 mg, oral, Q12H SOL atorvastatin, 40 mg, oral, Daily benzonatate, 100 mg, oral, TID carvediloL, 3.125 mg, oral, BID with meals (bkfst, dinner) famotidine, 20 mg, oral, Daily furosemide, 20 mg, oral, Daily guaiFENesin ER, 1,200 mg, oral, BID insulin glargine, 23 Units, subcutaneous, Nightly insulin lispro, 0-4 Units, subcutaneous, Nightly insulin lispro, 0-5 Units, subcutaneous, TID with meals insulin lispro, 6 Units, subcutaneous, TID with meals pregabalin, 150 mg, oral, Nightly risperiDONE, 2 mg, oral, Nightly sodium chloride 0.9%, 0.5-20 mL, intra-catheter, Q8H SOL Infusions: PRN: ??? acetaminophen ??? dextrose OR dextrose ??? glucagon ??? ondansetron ODT OR ondansetron ??? polyethylene glycol ??? ramelteon ??? sodium chloride 0.9% Vitals: 24hr Min/Max: Temp Min: 36.2 ??C (97.2 ??F) Max: 36.8 ??C (98.2 ??F) Pulse Min: 65 Max: 76 BP Min: 105/50 Max: 137/57 Resp Min: 16 Max: 18 SpO2 Min: 95 % Max: 98 % Most Recent: Vitals: 11/21/21 1131 BP: 134/63 Pulse: 65 Resp: 16 Temp: 36.7 ??C (98.1 ??F) SpO2: 98% Intake/Output Summary (Last 24 hours) at 11/21/2021 1211 Last data filed at 11/21/2021 0550 Gross per 24 hour Intake -- Output 400 ml Net -400 ml Physical Exam Gen: Comfortable in bed, NAD, on RA. HEENT: NCAT Heart: RRR Lungs: CTA, no rales. Abd: +BS, soft, NT Ext: moves all extremities; no edema Neuro: alert and oriented to name, place and situation. Psych: Calm. Lab/Diagnostic Review: Recent Results (from the past 36 hour(s)) POCT glucose Collection Time: 11/20/21 4:43 AM Result Value Ref Range Glucose, POC 158 70 - 199 mg/dL POCT glucose Collection Time: 11/20/21 7:24 AM Result Value Ref Range Glucose, POC 182 70 - 199 mg/dL POCT glucose Collection Time: 11/20/21 11:01 AM Result Value Ref Range Glucose, POC 222 (H) 70 - 199 mg/dL POCT glucose Collection Time: 11/20/21 4:45 PM Result Value Ref Range Glucose, POC 113 70 - 199 mg/dL POCT glucose Collection Time: 11/20/21 8:06 PM Result Value Ref Range Glucose, POC 98 70 - 199 mg/dL POCT glucose Collection Time: 11/20/21 11:37 PM Result Value Ref Range Glucose, POC 142 70 - 199 mg/dL POCT glucose Collection Time: 11/21/21 7:46 AM Result Value Ref Range Glucose, POC 128 70 - 199 mg/dL POCT glucose Collection Time: 11/21/21 11:30 AM Result Value Ref Range Glucose, POC 160 70 - 199 mg/dL I have reviewed the laboratory results. Imaging Results: CT Chest WO Contrast Narrative: EXAMINATION: Computed tomography of the chest without intravenous contrast HISTORY: Worsening cough, recently treated pneumonia. TECHNIQUE: Transaxial computed tomographic images of the chest were obtained without intravenous contrast according to the standard protocol. COMPARISON: No direct comparison available. Chest radiograph 11/15/2021. FINDINGS: Patent central airways. There is mild smooth bronchial wall thickening in the lower lobes. Mild left greater than right bibasilar atelectasis without convincing consolidation. Left apical pleural-parenchymal scarring. There is a 3 mm nodule in the right upper lobe (table position -891.0). No pneumothorax or pleural effusion. Normal heart size. No pericardial effusion. Coronary artery calcifications. Normal caliber thoracic aorta and main pulmonary artery. No supraclavicular, axillary, hilar or mediastinal lymphadenopathy. Calcified lung granulomas and hilar lymph nodes, in keeping with old granulomatous disease. Images of the upper abdomen are unremarkable. No suspicious osseous lesions. Impression: 1. Mild smooth bronchial wall thickening in the lower lobes without consolidation, possibly reflecting bronchitis or sequela of aspiration. 2. Right upper lobe 3 mm pulmonary nodule, indeterminate but likely infectious or inflammatory in etiology given the patient's history. Consider follow-up CT chest in one year to document resolution if there are clinical risk factors. Dictated by: Poli Eagle MD PHD The radiology attending physician has personally reviewed this study, and had reviewed and/or edited this written report and agrees with it. Electronically signed by: La Nena Jean MD Assessment/Plan Pulmonary nodule Assessment & Plan CT chest: Right upper lobe 3 mm pulmonary nodule, indeterminate but likely infectious or inflammatory in etiology given the patient's history. Follow-up CT chest in one year to document resolution. Left leg DVT (CMS/HCC) (HCC) Assessment & Plan Recently diagnosed at OSH. Continue eliquis Physical deconditioning Assessment & Plan Deconditioning 2/2 prolonged hospitalization. Daughter reports that prior to her illness, she was independent with a walker. - PT/OT recommends SNF. 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 Follows with outpatient nephrology. Baseline seems to be around 2-2.3. At baseline on admission. ProBNP 176 on admit. - Cut down lasix to 20 mg daily for volume status maintenance. Adjust as needed. Schizoaffective disorder, bipolar type ([facility] ([facility]) Assessment & Plan Continue risperidal Dementia ([facility]) Assessment & Plan Diagnosed 3 years ago. AOx3 at baseline. Relatively preserved [facility] memory. Has short term memory issues. Continue supportive care. Hyperlipidemia associated with type 2 diabetes mellitus ([facility]) Assessment & Plan Continue statin Type 2 diabetes mellitus with diabetic neuropathy, with long-term current use of insulin ([facility] ([facility]) Assessment & Plan Home regimen includes lantus 25 units + Humalog 8 units with meals + SSI, trulicity. BG WNL on arrival. - Cut down lantus to 23 units with + 6 units mealtime + SSI, adjust as needed. - Continue lyrica for neuropathy - HbA1C 8.2 * Cough Assessment & Plan Persistent cough which is actually getting worse [...] - RVP +Metapneumovirus - supportive care, improved. * Becky Nagel LCSW - 11/20/2021 6:18 PM CDT SW following for placement. SW spoke with dtr Areli Gayle regarding placement preferences: [place], [facility], [facility], [facility] and [facility] (respectively). Referrals sent. Becky Dasilva LCSW [facility] Social Work For emergency needs from 4:31p.m. - 7:59a.m., please call the ED Straw [employer] Cutter Operator . For weekend needs from 8:00a.m. - 4:30p.m., please call the Weekend Social Work Staff . * Reuben Dillon MD - 11/20/2021 3:14 PM CDT Daily Progress Note Division of Hospital Medicine Name: Barbara Chakraborty Today: November 20, 2021 : 1950 Age: 71 y.o. female Admit: 11/15/2021 Bed: [id number] Subjective Chief complaint: No new complaints, denies any CP or SOB. Interval History: -pend placement. Objective Medications: Scheduled: apixaban, 5 mg, oral, Q12H SOL atorvastatin, 40 mg, oral, Daily benzonatate, 100 mg, oral, TID carvediloL, 3.125 mg, oral, BID with meals (bkfst, dinner) famotidine, 20 mg, oral, Daily furosemide, 20 mg, oral, Daily guaiFENesin ER, 1,200 mg, oral, BID insulin glargine, 23 Units, subcutaneous, Nightly insulin lispro, 0-4 Units, subcutaneous, Nightly insulin lispro, 0-5 Units, subcutaneous, TID with meals insulin lispro, 6 Units, subcutaneous, TID with meals pregabalin, 150 mg, oral, Nightly risperiDONE, 2 mg, oral, Nightly sodium chloride 0.9%, 0.5-20 mL, intra-catheter, Q8H SOL Infusions: PRN: ??? acetaminophen ??? dextrose OR dextrose ??? glucagon ??? ondansetron ODT OR ondansetron ??? polyethylene glycol ??? ramelteon ??? sodium chloride 0.9% Vitals: 24hr Min/Max: Temp Min: 36.5 ??C (97.7 ??F) Max: 36.8 ??C (98.2 ??F) Pulse Min: 70 Max: 75 BP Min: 101/59 Max: 127/51 Resp Min: 18 Max: 20 SpO2 Min: 94 % Max: 99 % Most Recent: Vitals: 11/20/21 1500 BP: (!) 110/42 Pulse: Resp: Temp: SpO2: Intake/Output Summary (Last 24 hours) at 11/20/2021 1509 Last data filed at 11/20/2021 0635 Gross per 24 hour Intake -- Output 600 ml Net -600 ml Physical Exam Gen: Comfortable in bed, NAD, on RA. HEENT: NCAT Heart: RRR Lungs: CTA, no rales. Abd: +BS, soft, NT Ext: moves all extremities; no edema Neuro: Alert and oriented to name, place and situation. Psych: Cam. Lab/Diagnostic Review: Recent Results (from the past 36 hour(s)) POCT glucose Collection Time: 11/19/21 8:13 AM Result Value Ref Range Glucose, POC 184 70 - 199 mg/dL POCT glucose Collection Time: 11/19/21 8:17 AM Result Value Ref Range Glucose, POC 176 70 - 199 mg/dL POCT glucose Collection Time: 11/19/21 11:46 AM Result Value Ref Range Glucose, POC 214 (H) 70 - 199 mg/dL POCT glucose Collection Time: 11/19/21 4:52 PM Result Value Ref Range Glucose, POC 143 70 - 199 mg/dL POCT glucose Collection Time: 11/19/21 9:06 PM Result Value Ref Range Glucose, POC 185 70 - 199 mg/dL POCT glucose Collection Time: 11/20/21 4:43 AM Result Value Ref Range Glucose, POC 158 70 - 199 mg/dL POCT glucose Collection Time: 11/20/21 7:24 AM Result Value Ref Range Glucose, POC 182 70 - 199 mg/dL POCT glucose Collection Time: 11/20/21 11:01 AM Result Value Ref Range Glucose, POC 222 (H) 70 - 199 mg/dL I have reviewed the laboratory results. Imaging Results: CT Chest WO Contrast Narrative: EXAMINATION: Computed tomography of the chest without intravenous contrast HISTORY: Worsening cough, recently treated pneumonia. TECHNIQUE: Transaxial computed tomographic images of the chest were obtained without intravenous contrast according to the standard protocol. COMPARISON: No direct comparison available. Chest radiograph 11/15/2021. FINDINGS: Patent central airways. There is mild smooth bronchial wall thickening in the lower lobes. Mild left greater than right bibasilar atelectasis without convincing consolidation. Left apical pleural-parenchymal scarring. There is a 3 mm nodule in the right upper lobe (table position -891.0). No pneumothorax or pleural effusion. Normal heart size. No pericardial effusion. Coronary artery calcifications. Normal caliber thoracic aorta and main pulmonary artery. No supraclavicular, axillary, hilar or mediastinal lymphadenopathy. Calcified lung granulomas and hilar lymph nodes, in keeping with old granulomatous disease. Images of the upper abdomen are unremarkable. No suspicious osseous lesions. Impression: 1. Mild smooth bronchial wall thickening in the lower lobes without consolidation, possibly reflecting bronchitis or sequela of aspiration. 2. Right upper lobe 3 mm pulmonary nodule, indeterminate but likely infectious or inflammatory in etiology given the patient's history. Consider follow-up CT chest in one year to document resolution if there are clinical risk factors. Dictated by: Poli Eagle MD PHD The radiology attending physician has personally reviewed this study, and had reviewed and/or edited this written report and agrees with it. Electronically signed by: La Nena Jean MD Assessment/Plan Pulmonary nodule Assessment & Plan CT chest: Right upper lobe 3 mm pulmonary nodule, indeterminate but likely infectious or inflammatory in etiology given the patient's history. Follow-up CT chest in one year to document resolution. Left leg DVT (CMS/HCC) ([facility]) Assessment & Plan Recently diagnosed at OSH. Continue eliquis Physical deconditioning Assessment & Plan Deconditioning 2/2 prolonged hospitalization. Daughter reports that prior to her illness, she was independent with a walker. - PT/OT recommends SNF. 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 Follows with outpatient nephrology. Baseline seems to be around 2-2.3. At baseline on admission. ProBNP 176 on admit. - Cut down lasix to 20 mg daily for volume status maintenance. Adjust as needed. Schizoaffective disorder, bipolar type (CMS/HCC) (HCC) Assessment & Plan Continue risperidal Dementia ([facility]) Assessment & Plan Diagnosed 3 years ago. AOx3 at baseline. Relatively preserved [facility] memory. Has short term memory issues. Continue supportive care. Hyperlipidemia associated with type 2 diabetes mellitus (HCC) Assessment & Plan Continue statin Type 2 diabetes mellitus with diabetic neuropathy, with long-term current use of insulin ([facility] ([facility]) Assessment & Plan Home regimen includes lantus 25 units + Humalog 8 units with meals + SSI, trulicity. BG WNL on arrival. - Cut down lantus to 23 units with + 6 units mealtime + SSI, adjust as needed. - Continue lyrica for neuropathy - HbA1C 8.2 * Cough Assessment & Plan Persistent cough which is actually getting worse [...] - RVP +Metapneumovirus - supportive care, improved. * Darlyn Veloz PTA - 11/20/2021 2:46 PM CDT Physical Therapy Physical Therapy Progress Note NOTE: This is a summary note of the north components of the treatment session. For full details, review chart for all flowsheets documented on by this physical therapy clinician on this date. Vital signs documented in vital signs flowsheet. Care plan progress documented in Care Plan Activity. For questions, please review the treatment team and contact the PT or CARE PROFESSIONAL currently assigned to this patient. If a physical therapy clinician is not assigned to this patient, please call [phone]. 11/20/21 1446 PT Last Visit Session Type Treatment PT Received On 11/20/21 Safe Environment Arm Band Checked;Overbed Table within Reach;Call Light within Reach;Patient found sitting in Chair;Chair Alarm placed and activated;Notified RN (pt left in chair with all needs met) Subjective Agreeable to Therapy Precautions Precautions Fall risk Activity Tolerance Activity Tolerance Comments Yaneth: hard Pain Assessment Pain Assessment No/denies pain Cognition Arousal/Alertness Alert Orientation Oriented to person;Oriented to place Following Commands Follows one step commands with repetition Balance Balance Yes Static Sitting Balance Static Sitting-Balance Support Feet supported;No upper extremity supported Static Sitting-Sitting Surface Chair Static Sitting-Level of Assistance Close supervision Static Sitting-Comment/# of Minutes safety Static Standing Balance Static Standing-Balance Support Bilateral upper extremity supported (WW) Static Standing-Standing Surface Floor Static Standing-Level of Assistance Minimum assistance Static Standing-Comment/# of Minutes assist for balance Equipment Use Equipment Use Comments Gait belt used Bed Mobility Bed Mobility No Transfers Transfer Yes Transfer 1 Transfer From 1 Sit Transfer Type 1 To and from Transfer to 1 Stand Technique 1 Sit to stand;Stand to sit Transfer Device 1 Wheeled walker Transfer Level of Assistance 1 Moderate Assist Trials/Comments 1 assist for force production, balance, hip extension. increased time allowed to perform task. completed 3 sit to stands Ambulation Ambulation Yes Ambulation 1 Distance (ft) 1 5 Surface 1 Level tile Device 1 Wheeled walker Assistance 1 Moderate Assist Gait: Requires assist with 1 Maintaining balance Gait: Requires verbal cues to 1 Use assistive device safely;Improve upright posture;Increase step length;Pace activity Quality of Gait 1 decreased lanny and step length, forward flexed posture, decreased hip extension Ambulation Comments 1 pt reports feeling very fatigued and declined futher ambulation Basic Mobility - 6 Click How much difficulty does the patient have: Turning over in bed 3 How much difficulty does the patient currently have: Sitting down and standing up from a chair witharms? 2 How much difficulty does the patient have: Moving from lying on back to sitting on the side of the bed? 3 How much difficulty does the patient have: Moving to and from a bed to a chair including wheelchair? 2 How much help does the patient currently need: Walk in hospital room? 2 How much help from another person does the patient currently need: Climbing 3-5 steps with a railing? 1 Total 6 Click Score (range 6-24) 13 Score Interpretation 33.99 Assessment Prognosis Good Plan Plan Continue with current plan (Per PT) Recommendation/Plan PT Recommendation/Plan [facility] Facility (Per PT) PT Frequency 2-3x/wk (Per PT) PT - Next Appointment 11/22/21 Multi-Disciplinary Problems (from Physical Therapy) Active Problems Problem: Mobility Start Date: 11/17/21 Goal Start Date Expected End Date End Date LTG - Patient will ambulate household distance 11/17/21 12/20/21 -- Goal Details: With a wheeled walker and modified independence. Goal Start Date Expected End Date End Date STG - Patient will ambulate 11/17/21 12/06/21 -- Goal Details: 150 feet with supervision with appropriate assistive device with vitals stable. Problem: Transfers Start Date: 11/17/21 Goal Start Date Expected End Date End Date STG - Patient to transfer to and from sit to supine 11/17/21 12/06/21 -- Goal Details: With supervision. Goal Start Date Expected End Date End Date STG - Patient will transfer sit to and from stand 11/17/21 12/06/21 -- Goal Details: With supervision. * Maliha Goldberg OT - 11/20/2021 1:23 PM CDT Occupational Therapy Occupational Therapy Progress Note NOTE: This is a summary note of the north components of the treatment session. For full details, review chart for all flowsheets documented on by this occupational therapy clinician on this date. Vitalsigns documented in vital signs flowsheet. Care plan progress documented in Care Plan Activity. For questions, please review the treatment team and contact the occupational therapist currently assigned to this patient. If an occupational therapist is not assigned to this patient, please call [phone]. 11/20/21 1328 General Session Type Treatment OT Received On 11/20/21 Safe Environment Arm Band Checked;Call Light within Reach;Notified RN;Patient found in Supine Subjective Agreeable to Therapy Family/Caregiver Present No Precautions Precautions Fall risk Precaution Comments PPE: gown, gloves, faceshield, mask Pain Assessment Pain Assessment 0-10 Pain Score 0 - No pain Balance Balance Yes Static Sitting Balance Static Sitting-Balance Support No upper extremity supported;Feet supported Static Sitting-Sitting Surface Bed Static Sitting-Level of Assistance Close supervision Static Sitting-Comment/# of Minutes for safety, SBA Static Standing Balance Static Standing-Balance Support Bilateral upper extremity supported Static Standing-Standing Surface Floor Static Standing-Level of Assistance Moderate assistance;Minimum assistance Static Standing-Comment/# of Minutes using WW, initially mod A, improves to min with time ADL ADLS (WDL) X Grooming Grooming: Where assessed Chair Grooming: Level of assistance Moderate Assist Grooming: Assistance with Increased time to complete;Safety Toileting Toileting: Where assessed Chair Toileting: Level of assistance Maximum Assist Toileting: Assistance with Clothing management up;Perineal hygiene;Clothing management down;Posterior;Anterior Bed Mobility Bed Mobility Yes Bed Mobility 1 Bed Mobility From 1 Supine Bed Mobility Type 1 To Bed Mobility to 1 Edge of bed Level of Assistance 1 Minimum Assist;Minimal verbal cues;Minimal tactile cues Bed Mobility Comments 1 HOB elevated, assist for trunk management and scooting Transfers Transfer Yes Transfer 1 Transfer From 1 Bed;Sit Transfer Type 1 To and from Transfer to 1 Stand Technique 1 Sit to stand;Stand to sit Transfer Device 1 Wheeled walker Transfer Level of Assistance 1 Moderate Assist Trials/Comments 1 assist for force production, increased time for full transition to standing Transfers 2 Transfer From 2 Bed Transfer Type 2 To Transfer to 2 Chair with arms Technique 2 Stand pivot Transfer Device 2 Wheeled walker Transfer Level of Assistance 2 Moderate Assist Trials/Comments 2 forward flexed posture, increased time to initiate steps Cognition Arousal/Alertness Appropriate responses to stimuli;Alert Attention Span Appears intact Memory Decreased short term memory;Decreased recall of recent events Current communication Appears Intact Orientation Oriented to person;Oriented to place Following Commands Follows one step commands with repetition Safety Judgment Decreased awareness of need for safety Awareness of Errors Assistance required to identify errors made;Decreased awareness of errors;Assistance required to correct errors made Insight Decreased awareness of deficits Problem Solving Assistance required to implement solutions;Assistance required to generate solutions;Assistance required to identify errors made Compliance/Behavior Easy to engage Activity Tolerance Activity Tolerance Comments yaneth: hard (toileting) Other Comments Comments Patient tolerated session fairly this date. Pt alert, follows commands with increased timeto progress OOB. Pt demonstrates improved sitting balance without support. Requires occasional cuesto correct posterior lean while eating snack. Pt continues to progress toward LTGs, with ongoing assist required d/t deconditioning. Daily Activity - 6 Clicks Putting on and taking off regular lower body clothing 1 Bathing 2 Toileting 2 Putting on and taking off upper body clothing 3 Personal Grooming 2 Eating Meals 3 Total Score (range 6-24) 13 Score Interpretation 32.03 Assessment Problem List Decreased upper extremity range of motion;Decreased upper extremity strength;Decreasedsafe judgment during ADL;Decreased cognition;Decreased endurance;Decreased balance;Decreased functional mobility;Decreased ADL independence;Decreased IADL independence Barriers to Discharge Current Mobility Status;Cognition;Decreased safety awareness Barrier Comments fall risk Plan Plan Continue with current plan;If this is the last note, consider this the discharge summary Recommendation/Plan OT Recommendation [facility] OT Frequency 2-3x/wk Treatment/Interventions ADL/IADL retraining;Balance Training;Bed mobility;Cognitive retraining;Compensatory technique education;Endurance training;Functional activity;Functional transfer training;Functional mobility training;Parent/caregiver training and education;Strengthening;Therapeutic activity;Therapeutic exercise;Transfer training Progress Progressing toward goals OT - Next Appointment 11/22/21 OT - OK to Discharge No Multi-Disciplinary Problems (from Occupational Therapy) Active Problems Problem: Toileting Start Date: 11/17/21 Goal Start Date Expected End Date End Date STG - Patient will complete toileting tasks with min A 11/17/21 11/24/21 -- Problem: Transfers Start Date: 11/17/21 Goal Start Date Expected End Date End Date STG - Patient will perform toilet transfer with spv to standard toilet 11/17/21 11/24/21 -- Problem: OT Misc Start Date: 11/17/21 Goal Start Date Expected End Date End Date OT LTG - Pt will complete ADLs with spv 11/17/21 12/24/21 -- * Reuben Dillon MD - 11/19/2021 12:28 PM CDT Daily Progress Note Division of Hospital Medicine Name: Barbara Chakraborty Today: November 19, 2021 : 1950 Age: 71 y.o. female Admit: 11/15/2021 Bed: [id number] Subjective Chief complaint: Minimal cough, denies any SOB. Interval History: - Pend placement and dicussed in discharge rounds. Objective Medications: Scheduled: apixaban, 5 mg, oral, Q12H SOL atorvastatin, 40 mg, oral, Daily benzonatate, 100 mg, oral, TID carvediloL, 3.125 mg, oral, BID with meals (bkfst, dinner) famotidine, 20 mg, oral, Daily furosemide, 20 mg, oral, Daily guaiFENesin ER, 1,200 mg, oral, BID insulin glargine, 23 Units, subcutaneous, Nightly insulin lispro, 0-4 Units, subcutaneous, Nightly insulin lispro, 0-5 Units, subcutaneous, TID with meals insulin lispro, 6 Units, subcutaneous, TID with meals pregabalin, 150 mg, oral, Nightly risperiDONE, 2 mg, oral, Nightly sodium chloride 0.9%, 0.5-20 mL, intra-catheter, Q8H SOL Infusions: PRN: ??? acetaminophen ??? dextrose OR dextrose ??? glucagon ??? ondansetron ODT OR ondansetron ??? polyethylene glycol ??? ramelteon ??? sodium chloride 0.9% Vitals: 24hr Min/Max: Temp Min: 36.6 ??C (97.9 ??F) Max: 36.8 ??C (98.2 ??F) Pulse Min: 71 Max: 76 BP Min: 112/50 Max: 172/58 Resp Min: 16 Max: 18 SpO2 Min: 98 % Max: 100 % Most Recent: Vitals: 11/19/21 0809 BP: 117/54 Pulse: 72 Resp: 16 Temp: 36.7 ??C (98.1 ??F) SpO2: 99% Intake/Output Summary (Last 24 hours) at 11/19/2021 1224 Last data filed at 11/19/2021 0550 Gross per 24 hour Intake 120 ml Output 2500 ml Net -2380 ml Physical Exam Gen: Comfortable in bed, NAD, on RA. HEENT: NCAT Heart: RRR Lungs: CTA, no rales. Abd: +BS, soft, NT Ext: moves all extremities; no edema Neuro: alert and oriented to name, place and situation. Psych: Pleasant. Skin: warm and dry Lab/Diagnostic Review: Recent Results (from the past 36 hour(s)) Basic metabolic panel Collection Time: 11/18/21 5:12 AM Result Value Ref Range Sodium 142 135 - 145 mmol/L Potassium, pl 5.0 (H) 3.3 - 4.9 mmol/L Chloride 107 97 - 110 mmol/L CO2 25 22 - 32 mmol/L Anion gap 10 2 - 15 mmol/L BUN 65 (H) 8 - 25 mg/dL Creatinine 2.00 (H) 0.60 - 1.10 mg/dL Glucose 172 70 - 199 mg/dL Calcium 9.6 8.5 - 10.3 mg/dL CBC with auto differential Collection Time: 11/18/21 5:12 AM Result Value Ref Range WBC 11.1 (H) 3.8 - 9.9 K/cumm Hgb 8.1 (L) 11.9 - 15.5 g/dL Hct 25.8 (L) 35.6 - 45.5 % Plt 371 150 - 400 K/cumm MPV 10.3 9.1 - 12.3 fL RBC 2.88 (L) 3.90 - 5.20 M/cumm MCV 89.6 81.3 - 96.4 fL MCH 28.1 27.1 - 33.3 pg MCHC 31.4 (L) 32.3 - 35.7 g/dL RDW CV 14.6 11.1 - 14.9 % RDW SD 48.0 35.7 - 48.1 fL NRBC abs 0.00 0.00 - 0.01 K/cumm Differential, auto Collection Time: 11/18/21 5:12 AM Result Value Ref Range Neutrophil abs 6.7 (H) 1.7 - 6.5 K/cumm Imm gran abs 0.1 0.0 - 0.1 K/cumm Lymphocyte abs 3.3 0.8 - 3.3 K/cumm Monocyte abs 0.7 0.2 - 0.8 K/cumm Eosinophil abs 0.3 0.0 - 0.5 K/cumm Basophil abs 0.1 0.0 - 0.1 K/cumm Neutrophil pct 60.6 % Imm gran pct 0.5 % Lymphocyte pct 29.3 % Monocyte pct 6.2 % Eosinophil pct 2.9 % Basophil pct 0.5 % eGFR Collection Time: 11/18/21 5:12 AM Result Value Ref Range eGFR 26 (L) 90 - 130 mL/min/1.73 m2 POCT glucose Collection Time: 11/18/21 7:54 AM Result Value Ref Range Glucose, POC 180 70 - 199 mg/dL Glucose comment 1 Glu2: RN/ Notified POCT glucose Collection Time: 11/18/21 11:49 AM Result Value Ref Range Glucose, POC 145 70 - 199 mg/dL POCT glucose Collection Time: 11/18/21 4:53 PM Result Value Ref Range Glucose, POC 191 70 - 199 mg/dL Glucose comment 1 Glu2: RN/MD Notified POCT glucose Collection Time: 11/18/21 9:32 PM Result Value Ref Range Glucose, POC 210 (H) 70 - 199 mg/dL POCT glucose Collection Time: 11/19/21 8:13 AM Result Value Ref Range Glucose, POC 184 70 - 199 mg/dL POCT glucose Collection Time: 11/19/21 8:17 AM Result Value Ref Range Glucose, POC 176 70 - 199 mg/dL POCT glucose Collection Time: 11/19/21 11:46 AM Result Value Ref Range Glucose, POC 214 (H) 70 - 199 mg/dL I have reviewed the laboratory results. Imaging Results: CT Chest WO Contrast Narrative: EXAMINATION: Computed tomography of the chest without intravenous contrast HISTORY: Worsening cough, recently treated pneumonia. TECHNIQUE: Transaxial computed tomographic images of the chest were obtained without intravenous contrast according to the standard protocol. COMPARISON: No direct comparison available. Chest radiograph 11/15/2021. FINDINGS: Patent central airways. There is mild smooth bronchial wall thickening in the lower lobes. Mild left greater than right bibasilar atelectasis without convincing consolidation. Left apical pleural-parenchymal scarring. There is a 3 mm nodule in the right upper lobe (table position -891.0). No pneumothorax or pleural effusion. Normal heart size. No pericardial effusion. Coronary artery calcifications. Normal caliber thoracic aorta and main pulmonary artery. No supraclavicular, axillary, hilar or mediastinal lymphadenopathy. Calcified lung granulomas and hilar lymph nodes, in keeping with old granulomatous disease. Images of the upper abdomen are unremarkable. No suspicious osseous lesions. Impression: 1. Mild smooth bronchial wall thickening in the lower lobes without consolidation, possibly reflecting bronchitis or sequela of aspiration. 2. Right upper lobe 3 mm pulmonary nodule, indeterminate but likely infectious or inflammatory in etiology given the patient's history. Consider follow-up CT chest in one year to document resolution if there are clinical risk factors. Dictated by: Poli Eagle MD PHD The radiology attending physician has personally reviewed this study, and had reviewed and/or edited this written report and agrees with it. Electronically signed by: La Nena Jean MD Assessment/Plan Pulmonary nodule Assessment & Plan CT chest: Right upper lobe 3 mm pulmonary nodule, indeterminate but likely infectious or inflammatory in etiology given the patient's history. Follow-up CT chest in one year to document resolution. Left leg DVT (CMS/HCC) ([facility]) Assessment & Plan Recently diagnosed at OSH. Continue eliquis Physical deconditioning Assessment & Plan Deconditioning 2/2 prolonged hospitalization. Daughter reports that prior to her illness, she was independent with a walker. - PT/OT recommends SNF. 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 Follows with outpatient nephrology. Baseline seems to be around 2-2.3. At baseline on admission. ProBNP 176 on admit. - Cut down lasix to 20 mg daily for volume status maintenance. Adjust as needed. Schizoaffective disorder, bipolar type (CMS/HCC) ([facility]) Assessment & Plan Continue risperidal Dementia ([facility]) Assessment & Plan Diagnosed 3 years ago. AOx3 at baseline. Relatively preserved [facility] memory. Has short term memory issues. Continue supportive care. Hyperlipidemia associated with type 2 diabetes mellitus ([facility]) Assessment & Plan Continue statin Type 2 diabetes mellitus with diabetic neuropathy, with long-term current use of insulin ([facility]) ([facility]) Assessment & Plan Home regimen includes lantus 25 units + Humalog 8 units with meals + SSI, trulicity. BG WNL on arrival. - Cut down lantus to 23 units with + 6 units mealtime + SSI, adjust as needed. - Continue lyrica for neuropathy - HbA1C 8.2 * Cough Assessment & Plan Persistent cough which is actually getting worse [...] aspiration. - RVP +Metapneumovirus - supportive care * Honey James RN - 11/19/2021 11:17 AM CDT CM Initial Assessment Interview Note Information Obtained From: Adult child (PATIENT AMS) Name: Areli Gayle (Daughter) [phone] (11/19/211113) Admission Source: [facility] Impression: COUGH AND INCREASE WEAKNESS Plan Includes: ESTABLISH SAFE DISCHARGE Primary Source of Transportation: TBD Health Insurance Coverage: MEDICARE AB Prescription Coverage: YES Pharmacy: TBD Primary Care Provider: Cherelle Corcoran MD Prior to Admission: Primary Caregiver: Family Support System: Children Support system contact info (name, phone, availablity): Areli Gayle (Daughter) [phone] Home Care Services: No Durable Medical Equipment: Walker (wheeled) Living Arrangements: Children Type of Residence: Private residence (11/19/211113) Potential discharge needs include: ANTICIPATE PLACE. Dialysis: Behavioral Health Services: Behavioral Health Services: Yes (11/19/211113) Patient expects to be Discharged to: Acute Rehab (SW has provided list), (11/19/211113) Additional Information: Inter view completed patients daughter (patient AMS). Areli (Daughter) states that she has s/w social insurance specialist and has choose facilities for placement Patient's Identified Problem/Goal Problem: Ensure acute medical [...] Collaboration with patient, MD, direct care nurse, Straw Hat Brim Cutter Operator, Nurse Coordinator and other members of the health care team to assure needed interventions completed. 2. Return patient to optimal level of self-care post discharge. 3. Section Plotter Operator will follow for Discharge Planning - interventions as needed 4. Anticipated level of care at discharge 5. Planned Discharge Disposition Based on a comprehensive family assessment, assistance with instrumental activities of daily livingafter discharge will be provided by patient, daughter and facility staff. Through the course of our work I determined that the patient, daughter and facility staff. possesses the skill and ability to provide and monitor the care of the patient when he or she returns home. patient, daughter and facility staff. has the capacity to provide/monitor/arrange for the care of the patient. Finally, we determined that patient, daughter and facility staff. has the knowledge of available resources and that combining them with their existing resources will suffice to sustain and care for the patient when he or she re turns home. The treatment team is aware of this information. All are in agreement with the aftercare plan. Honey James RN * Keesha Aguirre MD - 11/18/2021 11:30 AM CDT Daily Progress Note Division of Hospital Medicine Name: Barbara Chakraborty Today: November 18, 2021 : 1950 Age: 71 y.o. female Admit: 11/15/2021 Bed: [id number] Subjective Chief complaint: weakness Interval History: Cough has improved. Objective Medications: Scheduled: apixaban, 5 mg, oral, Q12H SOL atorvastatin, 40 mg, oral, Daily benzonatate, 100 mg, oral, TID carvediloL, 3.125 mg, oral, BID with meals (bkfst, dinner) famotidine, 20 mg, oral, Daily furosemide, 20 mg, oral, Daily guaiFENesin ER, 1,200 mg, oral, BID insulin glargine, 23 Units, subcutaneous, Nightly insulin lispro, 0-4 Units, subcutaneous, Nightly insulin lispro, 0-5 Units, subcutaneous, TID with meals insulin lispro, 0.05 Units/kg, subcutaneous, TID with meals pregabalin, 150 mg, oral, Nightly risperiDONE, 2 mg, oral, Nightly sodium chloride 0.9%, 0.5-20 mL, intra-catheter, Q8H SOL Infusions: PRN: ??? acetaminophen ??? dextrose OR dextrose ??? glucagon ??? ondansetron ODT OR ondansetron ??? polyethylene glycol ??? ramelteon ??? sodium chloride 0.9% Vitals: 24hr Min/Max: Temp Min: 36.7 ??C Max: 37.1 ??C Pulse Min: 67 Max: 80 BP Min: 111/49 Max: 156/70 Resp Min: 16 Max: 18 SpO2 Min: 94 % Max: 100 % Most Recent: Vitals: 11/18/21 0754 BP: 111/49 Pulse: 67 Resp: 18 Temp: 37.1 ??C SpO2: 94% Intake/Output Summary (Last 24 hours) at 11/18/2021 1114 Last data filed at 11/18/2021 0510 Gross per 24 hour Intake 600 ml Output 600 ml Net 0 ml Physical Exam Gen: NAD HEENT: NCAT Heart: RRR Lungs: CTA Abd: +BS, soft, NT Ext: moves all extremities Neuro: just woke up and did not want to speak with me right now. In general, alert and oriented to name, place and situation. Speech is clear. 11/16 Jose at the waist when standing up from bed and needed 2 person support to transfer from bed to commode. Skin: warm and dry Lab/Diagnostic Review: Recent Results (from the past 24 hour(s)) POCT glucose Collection Time: 11/17/21 11:17 AM Result Value Ref Range Glucose, POC 229 (H) 70 - 199 mg/dL Glucose comment 1 Glu2: RN/MD Notified POCT glucose Collection Time: 11/17/21 4:45 PM Result Value Ref Range Glucose, POC 202 (H) 70 - 199 mg/dL Glucose comment 1 Glu2: RN/MD Notified POCT glucose Collection Time: 11/17/21 9:21 PM Result Value Ref Range Glucose, POC 234 (H) 70 - 199 mg/dL Basic metabolic panel Collection Time: 11/18/21 5:12 AM Result Value Ref Range Sodium 142 135 - 145 mmol/L Potassium, pl 5.0 (H) 3.3 - 4.9 mmol/L Chloride 107 97 - 110 mmol/L CO2 25 22 - 32 mmol/L Anion gap 10 2 - 15 mmol/L BUN 65 (H) 8 - 25 mg/dL Creatinine 2.00 (H) 0.60 - 1.10 mg/dL Glucose 172 70 - 199 mg/dL Calcium 9.6 8.5 - 10.3 mg/dL CBC with auto differential Collection Time: 11/18/21 5:12 AM Result Value Ref Range WBC 11.1 (H) 3.8 - 9.9 K/cumm Hgb 8.1 (L) 11.9 - 15.5 g/dL Hct 25.8 (L) 35.6 - 45.5 % Plt 371 150 - 400 K/cumm MPV 10.3 9.1 - 12.3 fL RBC 2.88 (L) 3.90 - 5.20 M/cumm MCV 89.6 81.3 - 96.4 fL MCH 28.1 27.1 - 33.3 pg MCHC 31.4 (L) 32.3 - 35.7 g/dL RDW CV 14.6 11.1 - 14.9 % RDW SD 48.0 35.7 - 48.1 fL NRBC abs 0.00 0.00 - 0.01 K/cumm Differential, auto Collection Time: 11/18/21 5:12 AM Result Value Ref Range Neutrophil abs 6.7 (H) 1.7 - 6.5 K/cumm Imm gran abs 0.1 0.0 - 0.1 K/cumm Lymphocyte abs 3.3 0.8 - 3.3 K/cumm Monocyte abs 0.7 0.2 - 0.8 K/cumm Eosinophil abs 0.3 0.0 - 0.5 K/cumm Basophil abs 0.1 0.0 - 0.1 K/cumm Neutrophil pct 60.6 % Imm gran pct 0.5 % Lymphocyte pct 29.3 % Monocyte pct 6.2 % Eosinophil pct 2.9 % Basophil pct 0.5 % eGFR Collection Time: 11/18/21 5:12 AM Result Value Ref Range eGFR 26 (L) 90 - 130 mL/min/1.73 m2 POCT glucose Collection Time: 11/18/21 7:54 AM Result Value Ref Range Glucose, POC 180 70 - 199 mg/dL Glucose comment 1 Glu2: RN/MD Notified I have reviewed the laboratory results. Assessment/Plan Code Status: Full Code Diet: Adult Diet Restricted; Consistent Carbohydrate Assessment/Plan Physical deconditioning Assessment & Plan Deconditioning 2/2 prolonged hospitalization. Daughter reports that prior to her illness, she was independent with a walker. - PT/OT recommends SNF. * Cough Assessment & Plan Persistent cough which is actually getting worse [...] aspiration. - RVP +Metapneumovirus - supportive care Pulmonary nodule Assessment & Plan CT chest: Right upper lobe 3 mm pulmonary nodule, indeterminate but likely infectious or inflammatory in etiology given the patient's history. Follow-up CT chest in one year to document resolution. Left leg DVT (CMS/HCC) ([facility]) Assessment & Plan Recently diagnosed at OSH. 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 Follows with outpatient nephrology. Baseline seems to be around 2-2.3. At baseline on admission. ProBNP 176 on admit. - Cut down lasix to 20 mg daily for volume status maintenance. Adjust as needed. Schizoaffective disorder, bipolar type (CMS/HCC) ([facility]) Assessment & Plan Continue risperidal Dementia ([facility]) Assessment & Plan Diagnosed 3 years ago. AOx3 at baseline. 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 Has short term memory issues. Continue supportive care. Hyperlipidemia associated with type 2 diabetes mellitus ([facility]) Assessment & Plan Continue statin Type 2 diabetes mellitus with diabetic neuropathy, with long-term current use of insulin ([facility]) ([facility]) Assessment & Plan Home regimen includes lantus 25 units + Humalog 8 units with meals + SSI, trulicity. BG WNL on arrival. - Cut down lantus to 23 units with + 6 units mealtime + SSI, adjust as needed. - Continue lyrica for neuropathy - HbA1C 8.2 * Keesha Aguirre MD - 11/17/2021 6:32 PM CDT Daily Progress Note Division of Hospital Medicine Name: Barbara Chakraborty Today: November 17, 2021 : 1950 Age: 71 y.o. female Admit: 11/15/2021 Bed: [id number] Subjective Chief complaint: cough and weakness Interval History: pt reports feeling much better overall. PT/OT recommends SNF. Objective Medications: Scheduled: apixaban, 5 mg, oral, Q12H SOL atorvastatin, 40 mg, oral, Daily benzonatate, 100 mg, oral, TID carvediloL, 3.125 mg, oral, BID with meals (bkfst, dinner) famotidine, 20 mg, oral, Daily furosemide, 20 mg, oral, Daily guaiFENesin ER, 1,200 mg, oral, BID insulin glargine, 23 Units, subcutaneous, Nightly insulin lispro, 0-4 Units, subcutaneous, Nightly insulin lispro, 0-5 Units, subcutaneous, TID with meals insulin lispro, 0.05 Units/kg, subcutaneous, TID with meals pregabalin, 150 mg, oral, Nightly risperiDONE, 2 mg, oral, Nightly sodium chloride 0.9%, 0.5-20 mL, intra-catheter, Q8H SOL Infusions: PRN: ??? acetaminophen ??? dextrose OR dextrose ??? glucagon ??? ondansetron ODT OR ondansetron ??? polyethylene glycol ??? ramelteon ??? sodium chloride 0.9% Vitals: 24hr Min/Max: Temp Min: 36.5 ??C Max: 37.5 ??C Pulse Min: 71 Max: 80 BP Min: 123/53 Max: 156/70 Resp Min: 16 Max: 16 SpO2 Min: 95 % Max: 100 % Most Recent: Vitals: 11/17/21 1607 BP: 150/65 Pulse: 80 Resp: Temp: SpO2: 99% Intake/Output Summary (Last 24 hours) at 11/17/2021 1823 Last data filed at 11/17/2021 1227 Gross per 24 hour Intake 500 ml Output 700 ml Net -200 ml Physical Exam Gen: NAD HEENT: NCAT Heart: RRR Lungs: CTA Abd: +BS, soft, NT Ext: moves all extremities; no edema Neuro: alert and oriented to name, place and situation. Speech is clear. Recognized me from yesterday Skin: warm and dry Lab/Diagnostic Review: Recent Results (from the past 24 hour(s)) POCT glucose Collection Time: 11/16/21 8:02 PM Result Value Ref Range Glucose, POC 184 70 - 199 mg/dL POCT glucose Collection Time: 11/17/21 7:31 AM Result Value Ref Range Glucose, POC 132 70 - 199 mg/dL POCT glucose Collection Time: 11/17/21 11:17 AM Result Value Ref Range Glucose, POC 229 (H) 70 - 199 mg/dL Glucose comment 1 Glu2: RN/ Notified POCT glucose Collection Time: 11/17/21 4:45 PM Result Value Ref Range Glucose, POC 202 (H) 70 - 199 mg/dL Glucose comment 1 Glu2: RN/ Notified I have reviewed the laboratory results. Assessment/Plan Code Status: Full Code Diet: Adult Diet Restricted; Consistent Carbohydrate Assessment/Plan Physical deconditioning Assessment & Plan Deconditioning 2/2 prolonged hospitalization. Daughter reports that prior to her illness, she was independent with a walker. - PT/OT recommends SNF. - In observing pt getting out of bed, she became lightheaded with change of position and is needinga lot of help even with transferring from bed to bedside commode. Stooping at the waist when standing up and needed 2 person assist. * Cough Assessment & Plan Persistent cough which is actually getting worse [...] aspiration. - RVP +Metapneumovirus - supportive care Pulmonary nodule Assessment & Plan CT chest: Right upper lobe 3 mm pulmonary nodule, indeterminate but likely infectious or inflammatory in etiology given the patient's history. Follow-up CT chest in one year to document resolution. Left leg DVT (CMS/HCC) ([facility]) Assessment & Plan Recently diagnosed at OSH. 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 Follows with outpatient nephrology. Baseline seems to be around 2-2.3. At baseline on admission. ProBNP 176 on admit. - Cut down lasix to 20 mg daily for volume status maintenance. Adjust as needed. Schizoaffective disorder, bipolar type (CMS/HCC) ([facility]) Assessment & Plan Continue risperidal Dementia ([facility]) Assessment & Plan Diagnosed 3 years ago. AOx3 at baseline. Relatively preserved [facility] memory. Has short term memory issues. Continue supportive care. Hyperlipidemia associated with type 2 diabetes mellitus ([facility]) Assessment & Plan Continue statin Type 2 diabetes mellitus with diabetic neuropathy, with long-term current use of insulin ([facility] ([facility]) Assessment & Plan Home regimen includes lantus 25 units + Humalog 8 units with meals + SSI, trulicity. BG WNL on arrival. - Cut down lantus to 20 units with + 4 units mealtime + SSI, adjust as needed. - Continue lyrica for neuropathy - HbA1C 8.2 * Wan Vicente, PT - 11/17/2021 3:42 PM CDT Physical Therapy Physical Therapy Initial Assessment NOTE: This is a summary note for the north assessments completed during the evaluation session. For full details, review chart review for all flowsheets documented on by this physical therapist on thisdate. Vital signs documented in vital signs flowsheet. Assessment Assessment Prognosis: Good Problem List: Gait deviations, Decreased strength, Decreased endurance, Impaired balance, Decreasedmobility Problem List Comments: PT diagnosis: pt with worsening cough weakness with a history of T2DM, schizoaffective disorder, dementia (baseline AAOx2-3), HTN, depression presents with deficits and impairments as described above.These deficits prevent full participation in household mobility. Plan Plan Plan : Plan of care initiated, If this is the last note, consider this the discharge summary PT Recommendation and Plan Recommendation/Plan PT Recommendation/Plan: [facility] Facility PT Frequency: 2-3x/wk Treatment/Interventions: Balance Training, Bed mobility, Endurance training, Functional transfer training, Gait training, Strengthening, Therapeutic activity, Therapeutic exercise PT Equipment Recommended: None PT - Next Appointment: 11/20/21 PT Evaluation Complete: Yes General Information General Chart Reviewed: Yes Session Type: Evaluation PT Received On: 11/17/21 Safe Environment: Arm Band Checked, Patient found sitting in Chair, Call Light within Reach, Bed Alarm placed and activated, Overbed Table within Reach Subjective: Agreeable to Therapy Family/Caregiver Present: No Physical Therapy-Patient Goal: Return home. Prior Function Prior Function Level of Calvert: Independent with ADLs, Independent functional transfers, Independent with ambulation Lives With: Daughter Receives Help From: Family (night time nanny assist available) Fall within the last 6 months: No Home Living Home Living Type of Home: House Home Layout: One level Home Access: Level entry Home Mobility Equipment: Wheeled walker, Single point cane (reports using her WW for all mobility at baseline) Additional Comments: pt is a questionable historian at this time. Precautions Precautions Precautions: Fall risk Precaution Comments: PPE worn by PT: gloves, gown, surgical mask, faceshield. Pain Pain Assessment Pain Assessment: No/denies pain Cognition Cognition Arousal/Alertness: Alert, Appropriate responses to stimuli Orientation : Oriented to person, Oriented to place Following Commands: Follows one step commands without difficulty Safety Judgment: Decreased awareness of need for safety 6 Clicks Basic Mobility - 6 Click How much [...] Total Total 6 Click Score (range 6-24): 14 Score Interpretation: 14 Bed Mobility Bed Mobility Bed Mobility: Yes Bed Mobility 1 Bed Mobility From 1: Short sit, Edge of bed Bed Mobility Type 1: To Bed Mobility to 1: Supine Level of Assistance 1: Minimum Assist Transfers Transfers Transfer: Yes Transfer 1 Transfer From 1: Sit Transfer Type 1: To and from Transfer to 1: Stand Technique 1: Sit to stand, Stand to sit Transfer Device 1: Wheeled walker Transfer Level of Assistance 1: Moderate Assist Trials/Comments 1: assist for force production. Transfers 2 Transfer From 2: Chair with arms Transfer Type 2: To Transfer to 2: Bed Technique 2: Stand pivot Transfer Device 2: No device Transfer Level of Assistance 2: Moderate Assist Trials/Comments 2: assist for force production and steadying. Balance Static Sitting Balance Static Sitting-Balance Support: Feet supported, No upper extremity supported Static Sitting-Sitting Surface: Bed Static Sitting-Level of Assistance: Close supervision Static Sitting-Comment/# of Minutes: sup for safety Dynamic Sitting Balance Dynamic Sitting-Balance Support: Feet supported, Bilateral upper extremity supported Dynamic Sitting-Balance: Lateral lean, Forward lean Dynamic Sitting-Sitting Surface: Bed Dynamic Sitting-Level of Assistance: Contact guard Dynamic Sitting-Comments: steadying assist Static Standing Balance Static Standing-Balance Support: Bilateral upper extremity supported (WW) Static Standing-Standing Surface: Floor Static Standing-Level of Assistance: Minimum assistance Static Standing-Comment/# of Minutes: steadying assist Ambulation Ambulation Ambulation: Yes Ambulation 1 Distance (ft) 1: 35 Surface 1: Level tile Device 1: Wheeled walker Assistance 1: Minimum Assist Gait: Requires assist with 1: Maintaining balance Gait: Requires verbal cues to 1: Use assistive device safely, Improve upright posture, Increase step length, Pace activity Quality of Gait 1: Decreased step length and lanny with a wide RENETTA with WW too far outside of herBOS with flexed trunk posture. Stairs Curbs RLE Assessment RLE Assessment RLE Assessment: Within Functional Limits LLE Assessment LLE Assessment LLE Assessment: Within Functional Limits Equipment Used Equipment Use Equipment Use Comments: Gait belt used for all OOB mobility. Other Comments PT Goals Multi-Disciplinary Problems (from Physical Therapy) Active Problems Problem: Mobility Start Date: 11/17/21 Goal Start Date Expected End Date End Date LTG - Patient will ambulate household distance 11/17/21 12/20/21 -- Goal Details: With a wheeled walker and modified independence. Goal Start Date Expected End Date End Date STG - Patient will ambulate 11/17/21 12/06/21 -- Goal Details: 150 feet with supervision with appropriate assistive device with vitals stable. Problem: Transfers Start Date: 11/17/21 Goal Start Date Expected End Date End Date STG - Patient to transfer to and from sit to supine 11/17/21 12/06/21 -- Goal Details: With supervision. Goal Start Date Expected End Date End Date STG - Patient will transfer sit to and from stand 11/17/21 12/06/21 -- Goal Details: With supervision. * Lashell Murray OT - 11/17/2021 1:50 PM CDT Occupational Therapy Occupational Therapy Initial Assessment NOTE:This is a summary note for the north assessments completed during the evaluation session. For full details, review chart review for all flowsheets documented on by this Occupational Therapist on this date. Vital signs documented in vital signs flowsheet. Assessment Assessment Problem List: Decreased upper extremity strength, Decreased cognition, Decreased endurance, Decreased safe judgment during ADL, Decreased balance, Decreased functional mobility, Decreased ADL independence, Decreased IADL independence, Decreased trunk control for functional activities Plan Plan Plan: If this is the last note, consider this the discharge summary, Plan of care initiated OT Recommendation and Plan Recommendation/Plan OT Recommendation: [facility] Facility OT Frequency: 2-3x/wk Treatment/Interventions: ADL/IADL retraining, Balance Training, Cognitive retraining, Bed mobility,Compensatory technique education, Endurance training, Equipment eval/education, Functional activity, Functional mobility training, Functional transfer training, Neuromuscular re-education, Parent/caregiver training and education, Positioning, Strengthening, Therapeutic activity, Therapeutic exercise, Transfer training, Upper extremity motor function/functional skills OT - Next Appointment: 11/20/21 OT Evaluation Complete: Yes General Information General Chart Reviewed: Yes Session Type: Evaluation OT Received On: 11/17/21 Safe Environment: Arm Band Checked, Chair Alarm placed and activated, Call Light within Reach, Notified RN, Patient found in Supine, Overbed Table within Reach (pt left seated in recliner in NAD) Subjective: Agreeable to Therapy Family/Caregiver Present: No Occupational Therapy-Patient Goal: pt was agreeable to OT stated short term goals Precautions Precautions Precautions: Fall risk Home Living Home Living Type of Home: House Home Layout: One level Home Access: (less than 5 LIANA) Bathroom Shower/Tub: Walk-in shower with threshold Bathroom Equipment: Grab bars in shower/tub, Shower chair Home Mobility Equipment: Wheeled walker Additional Comments: per pt report, pt with impaired short term memory possibly impacting accuracy of report Prior Function Prior Function Level of Calvert: Independent with ADLs, Independent with ambulation, Needs assistance with homemaking (functional mobility with ww) Lives With: Daughter Receives Help From: Family (night time nanny assist) Driving: No Vocational/Occupation: (not working) Fall within the last 6 months: No Prior Function Comments: per pt report, pt with impaired short term memory possibly impacting accuracy of report Activities of Daily Living Grooming Grooming: Where assessed: Chair Grooming: Level of assistance: Maximum Assist (min for task; total for balance) Grooming: Assistance with: (A for thoroughness) LE Dressing LE Dressing: Where assessed: Edge of bed LE Dressing: Level of assistance: Dependent Toileting Toileting: Where assessed: Bedside Commode Toileting: Level of assistance: Maximum Assist Toileting: Assistance with: Posterior, Anterior, Perineal hygiene, Clothing management up, Clothingmanagement down (A of 2, one person to assist with balance, other to assist with hygiene) Toilet Transfers Toilet Transfer From: (recliner) Toilet Transfer Type: To and from Toilet Transfer to: Standard bedside commode Toilet Transfer Technique: (stand and step) Toilet Transfer: Equipment: Hand hold Toilet Transfers: Moderate assistance Toilet Transfers Comments: A for force production, balance, weight shift, cues for safety Pain Pain Assessment Pain Assessment: No/denies pain Cognition Cognition Overall Cognitive Status: Impaired Arousal/Alertness: Alert, Appropriate responses to stimuli Attention Span: Controlled environment, Distractability, Difficulty dividing attention Memory: Decreased short term memory Orientation : Oriented to person, Oriented to place (oriented to year, not month; oriented to presentation of PNA, but not why she returned after d/c from OSH) Following Commands: Follows one step commands consistently Safety Judgment: Decreased awareness of need for safety Awareness of Errors: Decreased awareness of errors Problem Solving: Assistance required to implement solutions, Assistance required to generate solutions Compliance/Behavior: Easy to engage Short Blessed Test What year is it now?: Correct What month is it now?: Incorrect Repeat this name and address after me: Adryan Rivera [address] [place] [address] Without looking at the clock, tell me what time it is: Correct-within one hour Count aloud backwards from 20-1: 2 Errors Say the months of the year backwards in reverse order: 2 Errors Repeat the name and address I asked you to remember: 4 Errors Short Blessed Total Score: 19 Short Blessed Comments: impaired, concern for home safety. Pt with baseline dementia; unclear change from baseline, family not present. 6 Clicks Daily Activity - 6 Clicks Putting on and taking off regular lower body clothing: Total Bathing: A lot Toileting: A lot Putting on and taking off upper body clothing: A Little Personal Grooming: A lot Eating Meals: A little Total Score (range 6-24): 13 Score Interpretation: 13 Balance Static Sitting Balance Static Sitting-Balance Support: No upper extremity supported Static Sitting-Sitting Surface: Bed Static Sitting-Level of Assistance: Close supervision Static Standing Balance Static Standing-Balance Support: No upper extremity supported Static Standing-Level of Assistance: Moderate assistance Transfers Transfers Transfer: Yes Transfer 1 Transfer From 1: Sit Transfer Type 1: To and from Transfer to 1: Stand Technique 1: Stand to sit, Sit to stand Transfer Device 1: No device Transfer Level of Assistance 1: Moderate Assist Trials/Comments 1: A for force production, balance, hip extension. Pt did not come to full stand, partial hip extension/stooped in standing Transfers 2 Transfer From 2: Bed Transfer Type 2: To Transfer to 2: Chair with arms Technique 2: (stand step) Transfer Device 2: Hand held assist Transfer Level of Assistance 2: Moderate Assist Trials/Comments 2: A for force production, balance, hip extension, weight shift Bed Mobility Bed Mobility 1 Bed Mobility From 1: Supine Bed Mobility Type 1: To Bed Mobility to 1: Short sit, Edge of bed Level of Assistance 1: Moderate Assist Bed Mobility Comments 1: A to manuever BLEs, elevate trunk, bring hips to EOB RUE Assessment RUE Assessment RUE Assessment: Exceptions to WFL (WFL unless noted) RUE AROM (degrees) R Shoulder Flexion : (~90 degrees) R Shoulder ABduction : (~90 degrees) LUE Assessment LUE Assessment LUE Assessment: Exceptions to WFL (WFL unless noted) LUE AROM (degrees) L Shoulder Flexion : (~90 degrees) L Shoulder ABduction: (~90 degrees) Other Comments OT Goals Multi-Disciplinary Problems (from Occupational Therapy) Active Problems Problem: Grooming Start Date: 11/17/21 Goal Start Date Expected End Date End Date STG - Patient will complete grooming with mod A 11/17/21 11/24/21 -- Problem: Toileting Start Date: 11/17/21 Goal Start Date Expected End Date End Date STG - Patient will complete toileting tasks with min A 11/17/21 11/24/21 -- Problem: Transfers Start Date: 11/17/21 Goal Start Date Expected End Date End Date STG - Patient will perform toilet transfer with spv to standard toilet 11/17/21 11/24/21 -- Problem: OT Misc Start Date: 11/17/21 Goal Start Date Expected End Date End Date OT LTG - Pt will complete ADLs with spv 11/17/21 12/24/21 -- * Keesha Aguirre MD - 11/16/2021 5:40 PM CDT Daily Progress Note Division of Hospital Medicine Name: Barbara Chakraborty Today: November 16, 2021 : 1950 Age: 71 y.o. female Admit: 11/15/2021 Bed: [id number] Subjective Chief complaint: cough and weakness Interval History: no acute events. No significant cough noted. Ate most of her breakfast. Pt is getting lightheaded with change of position and is needing a lot of help even with transferring from bed to bedside commode. Objective Medications: Scheduled: albuterol HFA, 2 puff, inhalation, Q6H While awake (RT) apixaban, 5 mg, oral, Q12H SOL atorvastatin, 40 mg, oral, Daily benzonatate, 100 mg, oral, TID carvediloL, 3.125 mg, oral, BID with meals (bkfst, dinner) famotidine, 20 mg, oral, Daily furosemide, 20 mg, oral, Daily guaiFENesin ER, 1,200 mg, oral, BID insulin glargine, 20 Units, subcutaneous, Nightly insulin lispro, 0-4 Units, subcutaneous, Nightly insulin lispro, 0-5 Units, subcutaneous, TID with meals insulin lispro, 0.05 Units/kg, subcutaneous, TID with meals pregabalin, 150 mg, oral, Nightly risperiDONE, 2 mg, oral, Nightly sodium chloride 0.9%, 0.5-20 mL, intra-catheter, Q8H SOL Infusions: PRN: ??? acetaminophen ??? dextrose OR dextrose ??? glucagon ??? ondansetron ODT OR ondansetron ??? polyethylene glycol ??? ramelteon ??? sodium chloride 0.9% Vitals: 24hr Min/Max: Temp Min: 36.3 ??C Max: 37.1 ??C Pulse Min: 73 Max: 86 BP Min: 117/43 Max: 146/78 Resp Min: 14 Max: 16 SpO2 Min: 95 % Max: 100 % Most Recent: Vitals: 11/16/21 1521 BP: (!) 117/43 Pulse: 80 Resp: 16 Temp: 37.1 ??C SpO2: 99% Intake/Output Summary (Last 24 hours) at 11/16/2021 1713 Last data filed at 11/15/2021 2200 Gross per 24 hour Intake 480 ml Output -- Net 480 ml Physical Exam Gen: NAD HEENT: NCAT Heart: RRR Lungs: CTA Abd: +BS, soft, NT Ext: moves all extremities; no edema Neuro: alert and oriented to name, place and situation. Speech is clear. Jose at the waist when standing up from bed and needed 2 person support to transfer from bed to commode. Skin: warm and dry Lab/Diagnostic Review: Recent Results (from the past 24 hour(s)) POCT glucose Collection Time: 11/15/21 5:19 PM Result Value Ref Range Glucose, POC 116 70 - 199 mg/dL POCT glucose Collection Time: 11/15/21 6:10 PM Result Value Ref Range Glucose, POC 113 70 - 199 mg/dL POCT glucose Collection Time: 11/15/21 8:26 PM Result Value Ref Range Glucose, POC 159 70 - 199 mg/dL Respiratory pathogen panel Nasopharyngeal Collection Time: 11/16/21 12:34 AM Specimen: Nasopharyngeal Result Value Ref Range Influenza A RNA Not Detected Not Detected Influenza B RNA Not Detected Not Detected RSV RNA Not Detected Not Detected COVID-19 RNA Not Detected Not Detected Coronavirus 229E RNA Not Detected Not Detected Coronavirus HKU1 RNA Not Detected Not Detected Coronavirus NL63 RNA Not Detected Not Detected Coronavirus OC43 RNA Not Detected Not Detected Adenovirus DNA Not Detected Not Detected Metapneumovirus RNA Detected (A) Not Detected Rhinovirus/Enterovirus RNA Not Detected Not Detected Parainfluenza 1 RNA Not Detected Not Detected Parainfluenza 2 RNA Not Detected Not Detected Parainfluenza 3 RNA Not Detected Not Detected Parainfluenza 4 RNA Not Detected Not Detected B. pertussis DNA Not Detected Not Detected B. parapertussis DNA Not Detected Not Detected C. pneumoniae DNA Not Detected Not Detected M. pneumoniae DNA Not Detected Not Detected POCT glucose Collection Time: 11/16/21 12:39 AM Result Value Ref Range Glucose, POC 231 (H) 70 - 199 mg/dL POCT glucose Collection Time: 11/16/21 7:35 AM Result Value Ref Range Glucose, POC 214 (H) 70 - 199 mg/dL POCT glucose Collection Time: 11/16/21 11:25 AM Result Value Ref Range Glucose, POC 260 (H) 70 - 199 mg/dL POCT glucose Collection Time: 11/16/21 4:33 PM Result Value Ref Range Glucose, POC 241 (H) 70 - 199 mg/dL I have reviewed the laboratory results. Imaging Results: CT Chest WO Contrast Narrative: EXAMINATION: Computed tomography of the chest without intravenous contrast HISTORY: Worsening cough, recently treated pneumonia. TECHNIQUE: Transaxial computed tomographic images of the chest were obtained without intravenous contrast according to the standard protocol. COMPARISON: No direct comparison available. Chest radiograph 11/15/2021. FINDINGS: Patent central airways. There is mild smooth bronchial wall thickening in the lower lobes. Mild left greater than right bibasilar atelectasis without convincing consolidation. Left apical pleural-parenchymal scarring. There is a 3 mm nodule in the right upper lobe (table position -891.0). No pneumothorax or pleural effusion. Normal heart size. No pericardial effusion. Coronary artery calcifications. Normal caliber thoracic aorta and main pulmonary artery. No supraclavicular, axillary, hilar or mediastinal lymphadenopathy. Calcified lung granulomas and hilar lymph nodes, in keeping with old granulomatous disease. Images of the upper abdomen are unremarkable. No suspicious osseous lesions. Impression: 1. Mild smooth bronchial wall thickening in the lower lobes without consolidation, possibly reflecting bronchitis or sequela of aspiration. 2. Right upper lobe 3 mm pulmonary nodule, indeterminate but likely infectious or inflammatory in etiology given the patient's history. Consider follow-up CT chest in one year to document resolution if there are clinical risk factors. Dictated by: Poli Eagle MD PHD The radiology attending physician has personally reviewed this study, and had reviewed and/or edited this written report and agrees with it. Electronically signed by: La Nena Jean MD Assessment/Plan Code Status: Full Code Diet: Adult Diet Restricted; Consistent Carbohydrate Assessment/Plan Physical deconditioning Assessment & Plan Deconditioning 2/2 prolonged hospitalization. Daughter reports that prior to her illness, she was independent with a walker. - PT/OT nainals pending. - In observing pt getting out of bed, she became lightheaded with change of position and is needinga lot of help even with transferring from bed to bedside commode. Stooping at the waist when standing up and needed 2 person assist. * Cough Assessment & Plan Persistent cough which is actually getting worse [...] aspiration. - RVP +Metapneumovirus - supportive care Pulmonary nodule Assessment & Plan CT chest: Right upper lobe 3 mm pulmonary nodule, indeterminate but likely infectious or inflammatory in etiology given the patient's history. Follow-up CT chest in one year to document resolution. Left leg DVT (CMS/HCC) ([facility]) Assessment & Plan Recently diagnosed at OSH. 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 Follows with outpatient nephrology. Baseline seems to be around 2-2.3. At baseline on admission. ProBNP 176 on admit. - Cut down lasix to 20 mg daily for volume status maintenance. Adjust as needed. Schizoaffective disorder, bipolar type (CMS/HCC) ([facility]) Assessment & Plan Continue risperidal Dementia ([facility]) Assessment & Plan Diagnosed 3 years ago. AOx3 at baseline. 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 Has short term memory issues. Continue supportive care. Hyperlipidemia associated with type 2 diabetes mellitus ([facility]) Assessment & Plan Continue statin Type 2 diabetes mellitus with diabetic neuropathy, with long-term current use of insulin (CMS/HCC) ([facility]) Assessment & Plan Home regimen includes lantus 25 units + Humalog 8 units with meals + SSI, trulicity. BG WNL on arrival. - Cut down lantus to 20 units with + 4 units mealtime + SSI, adjust as needed. - Continue lyrica for neuropathy - HbA1C 8.2 documented in this encounter H&P Notes * Hussein Long MD - 11/15/2021 8:01 AM CDT History and Physical Division of [facility] Medicine Name: Barbara Chakraborty Today: November 15, 2021 : 1950 Age: 71 y.o. female Subjective Ms. Chakraborty is a 71 y.o. female with chief complaint of cough and weakness. HPI: Ms. Chakraborty is a 71-year-old female with history of schizoaffective disorder, diabetes, hypertension, CKD 3B, hyperlipidemia, dementia who was brought to ED with cough and generalized weakness. History predominantly obtained from medical record & daughter over phone. Patient sleepy and was not able to participate in interview. Per daughter, at baseline, patient was diagnosed with dementia 3 years ago, has short term memory issues, uses walker for ambulation. She has urinary and stool incontinence at baseline. She was recently discharged from [facility] yesterday after admission (2 weeks) for pneumonia and left lower extremity DVT and was discharged home with daughter. She was treated with prolongedcourse vancomycin & cefepime along with azithromycin. After returning home, she has been havingworsening cough, non- productive, has dyspnea with ambulation, tired albuterol at home without improv ement. No fevers, but has chills at baseline. She was taken off Lasix at hospital, taking Humalog 8units TID + SSI, Lantus 25 nightly. Daughter okay with SNF but had bad experiences in the past. On arrival to ED, she was hemodynamically stable and afebrile with O2 sats in high 90s on room air.Chest x-ray showed bibasilar atelectasis but no consolidations. Pertinent labs include leukocytosiswith white count of 13.6, hemoglobin of 8.5 stable, platelets 367, elevated creatinine of 2.1 appears close to baseline, elevated BUN of 72, potassium of 5, sodium of 136, bicarb of 24, normal LFTs. Serial troponins x2 negative. EKG with sinus rhythm and no acute ST-T changes. Pro-BNP 175 at baseline. COVID negative. She is primarily being admitted for management of weakness, persistent cough and possibly placement. Past Medical History: Diagnosis Date ??? Arthritis ??? Depression ??? Diabetic neuropathy (CMS/HCC) (HCC) ??? Hyperlipidemia ??? Hypertension ??? Schizophrenia (HCC) ??? Type 2 diabetes mellitus (HCC) Past Surgical History: Procedure Laterality Date ??? SECTION Right right foot ??? TOE AMPUTATION Right 01/06/2020 4th toe amp/ foot debridement/ Dr. Anat Pelayo No current facility-administered medications on file prior to encounter. Current Outpatient Medications on File Prior to Encounter Medication Sig ??? acetaminophen (TYLENOL) 325 mg tablet Take 650 mg by mouth every 6 (six) hours as needed for pain ??? albuterol HFA (ProAir HFA) 90 mcg/actuation inhaler Inhale 2 puffs every 4 (four) hours as needed for wheezing or shortness of breath ??? apixaban (ELIQUIS) 5 mg tablet 5 mg every 12 (twelve) hours ??? atorvastatin (LIPITOR) 40 mg tablet Take 1 tablet (40 mg total) by mouth daily ??? BD Arlyn 2nd Gen Pen Needle 32 gauge x 5/32 needle USE TO INJECT BASAGLAR EVERY NIGHT AT BEDTIME ??? benzonatate (TESSALON) 100 mg capsule Take 100 mg by mouth 3 (three) times a day as needed for cough ??? blood pressure monitor kit Check BP as instructed ??? capsaicin (ZOSTRIX) 0.025 % cream Apply topically 2 (two) times a day (Patient not taking: Reported on 10/16/2021) ??? carvediloL (COREG) 3.125 mg tablet Take 1 tablet (3.125 mg total) by mouth 2 (two) times a day with meals ??? conner.stocking,thigh,reg,med misc Wear as much as possible ??? dulaglutide (Trulicity) 0.75 mg/0.5 mL pen injector Inject 0.5 mL (0.75 mg total) under the skin once a week DUE FOR FOLLOW UP ??? famotidine (PEPCID) 20 mg tablet Take 1 tablet (20 mg total) by mouth daily ??? ferrous sulfate 325 mg (65 mg of elemental iron) tablet Take 1 tablet (325 mg total) by mouth daily with breakfast ??? flash glucose scanning reader (Runcomyle Madhav 2 [place]) misc Use to continually monitor glucose ??? flash glucose sensor (FreeStyle Madhav 2 Sensor) kit Use to continually monitor glucose, change every 14 days ??? furosemide (LASIX) 40 mg tablet Take 1 tablet (40 mg total) by mouth 2 (two) times a day ??? guaiFENesin ER (MUCINEX) 600 mg 12 hr tablet Take 1,200 mg by mouth 2 (two) times a day ??? insulin glargine (LANTUS, SEMGLEE) 100 unit/mL vial for injection Inject 25 Units under the skin nightly ??? insulin lispro (HumaLOG, ADMELOG) 100 unit/mL pen for injection Inject 0-10 Units under the skin 3 (three) times a day with meals ??? lancets misc Check blood sugar up to 3 times a day ??? lidocaine (LIDODERM) 5 % Place 1 patch on the skin daily Apply to painful area 12 hours per day, remove for 12 hours. ??? miscellaneous medical supply (Blood Pressure Cuff) mis Use to check blood pressure daily ??? multivitamin with minerals tablet Take 1 tablet by mouth daily (Patient not taking: Reported on10/16/2021) ??? OneTouch Verio test strips strip TEST 3 TO 4 TIMES DAILY ??? polyethylene glycol (MIRALAX) 17 gram packet Take 1 packet (17 g total) by mouth daily (Patientnot taking: Reported on 10/16/2021) ??? pregabalin (LYRICA) 150 mg capsule TAKE 1 CAPSULE(150 MG) BY MOUTH EVERY NIGHT ??? risperiDONE (RisperDAL) 2 mg tablet Take 1 tablet (2 mg total) by mouth nightly ??? syringe with needle, insulin (INSULIN SYRINGE-NEEDLE U-[address] [facility]) 3 times a day ??? [DISCONTINUED] omeprazole (PriLOSEC) 20 mg capsule Take 1 capsule (20 mg total) by mouth daily No Known Allergies Social History Tobacco Use ??? Smoking status: Never Smoker ??? Smokeless tobacco: Never Used Substance Use Topics ??? Alcohol use: Not Currently Family History Problem Relation Age of Onset ??? Stomach cancer Father Family History reviewed and non-contributory. Review of Systems All other systems were reviewed and are negative except for that which is listed in the History of Present Illness. Objective Vitals: 24hr Min/Max: Temp Min: 36.6 ??C (97.9 ??F) Max: 36.6 ??C (97.9 ??F) Pulse Min: 70 Max: 90 BP Min: 107/36 Max: 133/67 Resp Min: 9 Max: 18 SpO2 Min: 91 % Max: 98 % Most Recent Vitals: Vitals: 11/15/21 0750 BP: Pulse: 79 Resp: 13 Temp: SpO2: 97% No intake or output data in the 24 hours ending 11/15/21 0802 Physical Exam I have reviewed vital signs. Constitutional: General: No acute distress. Appearance: Normal appearance. HENT: Head: Normocephalic and atraumatic. Nose: Nose normal. Mouth: Mucous membranes are moist. Eyes: Pupils: Pupils are equal, round, and reactive to light. Neck: Musculoskeletal: Normal range of motion and neck supple. Cardiovascular: Rate and Rhythm: Normal rate and regular rhythm. Pulses: Normal pulses. Heart sounds: No gallop. No Rubs Pulmonary: Effort: Pulmonary effort is normal. No respiratory distress. Breath sounds: No wheezing, No Rhonchi. Abdominal: General: Bowel sounds are normal. There is no distension. Palpations: Abdomen is soft. Tenderness: There is no tenderness. Comments: Musculoskeletal: General: No swelling or tenderness. Skin: General: Skin is warm and dry. Neurological: General: Couldn't participate in full exam Psychiatric: Couldn't assess Lab/Diagnostic Review: Recent Results (from the past 36 hour(s)) POCT glucose Collection Time: 11/14/21 11:12 PM Result Value Ref Range Glucose, POC 175 70 - 199 mg/dL CBC with auto differential Collection Time: 11/15/21 2:43 AM Result Value Ref Range WBC 13.6 (H) 3.8 - 9.9 K/cumm Hgb 8.5 (L) 11.9 - 15.5 g/dL Hct 27.5 (L) 35.6 - 45.5 % Plt 367 150 - 400 K/cumm MPV 10.4 9.1 - 12.3 fL RBC 3.05 (L) 3.90 - 5.20 M/cumm MCV 90.2 81.3 - 96.4 fL MCH 27.9 27.1 - 33.3 pg MCHC 30.9 (L) 32.3 - 35.7 g/dL RDW CV 14.5 11.1 - 14.9 % RDW SD 47.3 35.7 - 48.1 fL NRBC abs 0.00 0.00 - 0.01 K/cumm Comprehensive metabolic panel Collection Time: 11/15/21 2:43 AM Result Value Ref Range Sodium 136 135 - 145 mmol/L Potassium, pl 5.0 (H) 3.3 - 4.9 mmol/L Chloride 103 97 - 110 mmol/L CO2 24 22 - 32 mmol/L Anion gap 9 2 - 15 mmol/L BUN 72 (H) 8 - 25 mg/dL Creatinine 2.15 (H) 0.60 - 1.10 mg/dL Glucose 188 70 - 199 mg/dL Calcium 10.3 8.5 - 10.3 mg/dL Bilirubin, total 0.2 0.1 - 1.2 mg/dL Protein, pl 7.7 6.5 - 8.5 g/dL Albumin 3.5 3.5 - 5.0 g/dL Alk phos 104 40 - 130 Units/L ALT 19 7 - 45 Units/L AST 25 10 - 45 Units/L Pro B-type natriuretic peptide Collection Time: 11/15/21 2:43 AM Result Value Ref Range NT-proBNP 175 <=300 pg/mL Differential, auto Collection Time: 11/15/21 2:43 AM Result Value Ref Range Neutrophil abs 9.1 (H) 1.7 - 6.5 K/cumm Imm gran abs 0.1 0.0 - 0.1 K/cumm Lymphocyte abs 2.9 0.8 - 3.3 K/cumm Monocyte abs 1.2 (H) 0.2 - 0.8 K/cumm Eosinophil abs 0.3 0.0 - 0.5 K/cumm Basophil abs 0.0 0.0 - 0.1 K/cumm Neutrophil pct 66.8 % Imm gran pct 0.6 % Lymphocyte pct 21.5 % Monocyte pct 8.5 % Eosinophil pct 2.3 % Basophil pct 0.3 % eGFR Collection Time: 11/15/21 2:43 AM Result Value Ref Range eGFR 24 (L) 90 - 130 mL/min/1.73 m2 Troponin I high-sensitivity series (baseline, 2hr, 4hr, 6hr) Collection Time: 11/15/21 3:01 AM Result Value Ref Range Trop I hs <4 <=17 ng/L Troponin I high-sensitivity 2-hour Collection Time: 11/15/21 4:45 AM Result Value Ref Range Trop I hs 4 <=17 ng/L Trop I hs delta 0 ng/L Trop I hs interp Insignificant COVID-19 Coronavirus RNA Nasopharyngeal Collection Time: 11/15/21 5:31 AM Specimen: Nasopharyngeal Result Value Ref Range COVID-19 RNA Negative Negative POCT glucose Collection Time: 11/15/21 6:58 AM Result Value Ref Range Glucose, POC 190 70 - 199 mg/dL I have reviewed the laboratory results. Imaging Results: XR Chest Pa Lateral 2 Vw Narrative: EXAMINATION: 2 view chest radiograph Impression: Comparison radiograph 09/06/2021. There is bibasilar atelectasis. No pleural effusion. Patient is leaning slightly to the left. No pneumothorax. The cardiac mediastinal silhouette is normal. Dictated by: Agus Lezama M.D. ECG 12 lead Taras Rivera MD PhD 11/15/2021 2:47 AM ECG 12 lead Date/Time: 11/15/2021 2:47 AM Performed by: Taras Rivera MD PhD Authorized by: Larry Mccall MD PhD Comments: (02:38) sinus rhythm at 82 beats per minute; normal axis; normal intervals; no acute ST or T-wave abnormality. Normal EKG. Low risk ACS. I have independently reviewed and interpreted patient's chart in [facility] and my findings are: leukocytosis with white count of 13.6, hemoglobin of 8.5 stable, platelets 367, elevated creatinine of 2.1 appears close to baseline, elevated BUN of 72, potassium of 5, sodium of 136, bicarb of 24, normal LFTs. Serial troponins x2 negative. Pro-BNP 175 at baseline. Reviewed micro data: COVID negative.. Assessment/Plan * Cough Assessment & Plan Persistent cough which is actually getting worse. Recently treated at [facility] for PNA with prolonged course of antibiotics: cefepime + vancomycin + azithromycin per daughter. RSV/Flu/COVID negative. No wheezing on admit. Stable on RA. CXR with showed bibasilar atelectasis but no consolidations. - Could be obstruction or bronchitis or CONDUIT HELPER - Will plan for Chest CT - Will repeat full RVP - Plan for scheduled inhaler trial (6 doses) with scheduled mucinex + tessalon perles. - Hold off on further abx for now unless clinically decompensates or spikes fever. Physical deconditioning Assessment & Plan Deconditioning 2/2 prolonged hospitalization. - PT/OT evals Dementia ([facility]) Assessment & Plan Diagnosed 3 years ago. AOx3 at baseline. 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 Has short term memory issues. Continue supportive care. Type 2 diabetes mellitus with diabetic neuropathy, with long-term current use of insulin ([facility]) ([facility]) Assessment & Plan Home regimen includes lantus 25 units + Humalog 8 units with meals + SSI, trulicity. BG WNL on arrival. - Cut down lantus to 20 units with + 4 units mealtime + SSI, adjust as needed. - Continue lyrica for neuropathy Left leg DVT ([facility]) ([facility]) Assessment & Plan Recently diagnosed at OSH. 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 Follows with outpatient nephrology. Baseline seems to be around 2-2.3. At baseline on admission. ProBNP 176 on admit. - Cut down lasix to 20 mg daily for volume status maintenance. Adjust as needed. Schizoaffective disorder, bipolar type ([facility]) ([facility]) Assessment & Plan Continue risperidal Hyperlipidemia associated with type 2 diabetes mellitus ([facility]) Assessment & Plan Continue statin documented in this encounter Procedure Notes * Kita Casas, PROGRAM TECHNICIAN - 11/19/2021 10:40 AM CDTAssociated Order(s): PROGRAM TECHNICIAN EVALUATE AND TREAT Speech-Language Pathology: Clinical Bedside Swallow HPI/PMH 71-year-old female with history of schizoaffective disorder, diabetes, hypertension, CKD 3B, hyperlipidemia, dementia who was brought to ED with cough and generalized weakness. dementia diagnosis 3 years ago Dc from OSH 11/14 for pna and LLE DVT, had cough prolonged, non productive- rsv, flu and covid negative at H Imaging:CT chest 11/16- mild smooth bronchial wall thickening in the lower lobes without consolidation, possibly reflective bronchitis or sequela of aspiration Precautions: fall PLOF: per daughter, independent with walker prior to admit, urinary and stool incontinence at baseline Current Diet Order: regular diet/thin liquids Baseline Feeding Status: regular diet/thin liquids General Information Barbara Chakraborty 11/19/21 General Observations: Adequate voicing, pleasant and cooperative, mild confusion noted in conversation, following commands. Denies baseline difficulty swallowing. Adequate oral motor movement. Pain Score: 0 - No pain If pain >4, was RN notified? No Patient Stated Goal/Comments: none Clinical Impression & Professional Recommendations Diet Solids Recommendation: Regular Diet Liquids Recommendations: Thin/regular Recommended Form of Medications: As tolerated Compensatory Strategies/Modifications: Slow rate Postural Recommendations: Upright 90 degrees Assistance with feeding/swallowing: Intermittent supervision Specialty Instructions: none Dysphagia Diagnosis: Within Functional Limits Overall Clinical Impression/Additional Information: Given trials of thin liquid via cup and straw as well as puree and hard solid food. Pt without overt s/s aspiration. Slow mastication however functional. Assessment Details & Results Consistencies Administered: Thin liquids, Purees, Solids EAT-10: O-HAT: MASA: Harris Assessment of Swallowing Ability (MASA) Alertness: Alert Cooperation: Cooperative Auditory Comprehension: Follows ordinary conversation with little difficulty Respiration: Chest clear Respiratory Rate (for swallow): Able to control breath rate for swallow Aphasia: No abnormality detected Apraxia: No abnormality detected Dysarthria: No abnormality detected Saliva: No abnormality detected Lip Seal: No abnormality detected Tongue Movement: Full range of motion Tongue Strength: No abnormality detected Tongue Coordination: No abnormality detected Gag: No gag (not assessed) Palate: No abnormality detected Cough Reflex: No deficit noted Voluntary Cough: No abnormality detected Voice: No abnormality detected Trach: No trach Oral Preparation: No deficits noted Bolus Clearance: Fully cleared Oral Transit: No deficits note Pharyngeal Phase: Immediate laryngeal elevation Pharyngeal Response: No deficits noted MASA Score: 194 Dysphagia: No dysphagia detected (178-200) Aspiration Risk: No aspiration risk (170-200) NOMS: National Outcomes Measurement System: Level 7 Plan PROGRAM TECHNICIAN Frequency of Services: One-time visit (Discharge from this service) Follow Up Therapy Recommendations: none Further Assessment/Follow up Indicated: none Next Visit Plan:No further ST warranted Additional Referrals: none Please reference care plan for treatment goals, if indicated. Discharge Summary Statement If this is the last swallow therapy visit, this serves as the discharge summary. documented in this encounter ED Notes * Taras Rivera MD PhD - 11/15/2021 2:14 AM CDT ATTENDING NOTE 71-year-old with past medical history diabetes, schizoaffective disorder, dementia, hypertension, dyslipidemia. Presents to ED per daughter's insistence because of ongoing cough, generalized weakness. Daughter notes that she has had several admissions over the course the last several months at a couple of different hospitals for generally poor function and respiratory difficulty. Most recently discharged from [facility] ([place], [place]) this morning after admission for pneumonia, during which time she was treated with antibiotics and antitussive agents, and diagnosed with left lower extremity DVT for which Eliquis was begun. Daughter notes that even upon getting home patient is generally weak has a fairly persistent, prolonged paroxysmal cough. PHYSICAL EXAMINATION: Appears chronically, but not acutely ill. Frequent paroxysms of wet sounding cough. In between coughing spells, no respiratory distress. Lungs clear between coughing paroxysms. Heart regular. Benign, obese abdomen. Trace to 1+ left distal leg edema ASSESSMENT/PLAN: Recent pneumonia with ongoing cough, generalized weakness. Normal oxygenation on room air, with good plethysmography tracing, and normal vital signs. Will evaluate for metabolic derangement, cardiac decompensation, anemia. Will obtain CBC, CMP, chest x-ray, troponin (x2). It is possible the patient will not have clinical criteria for ongoing inpatient care, and daughter expressessome redness since about any consideration of detention. Upon return of diagnostic studies, willreaddress issues of disposition with patient and daughter (who is at bedside). Taras Rivera MD PhD 11/15/21 0247 * Larry Mccall MD PhD - 11/15/2021 1:58 AM CDT HPI Chief Complaint Patient presents with ??? Leg Pain ??? Cough HPI Barbara Chakraborty is a 71 yo F with PMH of T2DM, schizoaffective disorder, dementia (baseline AAOx2-3) who presents with cough and leg pain. She was admitted to [facility] for PNA for 10 days and was discharged today. Patient's daughter reports she was diagnosed with PNA and treated with antibiotics. She was also diagnosed with left leg DVT and started on apixaban. She was discharged from [place] today to home with daughter. Daughter reports that she was coughing a lot, which made her concerned so she brought her to the ED. Patient History: Patient Active Problem List Diagnosis Date Noted ??? Cough 11/15/2021 ??? Pressure ulcer 10/07/2021 ??? Anemia 09/07/2021 ??? Volume overload 09/06/2021 ??? Late onset Alzheimer's dementia without behavioral disturbance (HCC) 08/19/2021 ??? Delirium 08/07/2021 ??? Acute renal failure superimposed on stage 4 chronic kidney disease (CMS/HCC) ([facility]) 08/07/2021 ??? Encounter for Medicare annual wellness exam 01/08/2021 ??? Stage 3b chronic kidney disease ([facility]) 12/11/2020 ??? Dementia ([facility]) 10/10/2020 ??? Encounter for psychiatric assessment 10/10/2020 ??? Schizoaffective disorder, bipolar type (CMS/HCC) ([facility]) 10/10/2020 ??? Hyperlipidemia associated with type 2 diabetes mellitus ([facility]) 04/03/2020 ??? Iron deficiency anemia 04/02/2020 ??? GERD (gastroesophageal reflux disease) 04/02/2020 ??? Amputation of toe of right foot (CMS/HCC) ([facility]) 01/19/2020 ??? Hypertension associated with diabetes ([facility]) 12/13/2019 ??? Schizoaffective disorder, bipolar type (CMS/HCC) ([facility]) 08/30/2019 ??? Type 2 diabetes mellitus with diabetic neuropathy, with long-term current use of insulin (CMS/HCC) ([facility]) 08/30/2019 ??? Diabetic neuropathy (CMS/HCC) ([facility]) Past Medical History: Diagnosis Date ??? Arthritis ??? Depression ??? Diabetic neuropathy (CMS/HCC) ([facility]) ??? Hyperlipidemia ??? Hypertension ??? Schizophrenia ([facility]) ??? Type 2 diabetes mellitus ([facility]) Past Surgical History: Procedure Laterality Date ??? SECTION Right right foot ??? TOE AMPUTATION Right 01/06/2020 4th toe amp/ foot debridement/ Dr. Anat Pelayo Family History Problem Relation Age of Onset ??? Stomach cancer Father Social History Tobacco Use ??? Smoking status: Never Smoker ??? Smokeless tobacco: Never Used Substance Use Topics ??? Alcohol use: Not Currently ??? Drug use: Never Social History Social History Narrative Originally From [place] Grew up with her mom and dad. 12th grade - graduated. [employer]. [employer] - none. [employer]. I never worked. Single. Review of Systems Review of Systems Constitutional: Positive for chills. Negative for fever. Respiratory: Positive for cough and shortness of breath. Gastrointestinal: Positive for abdominal distention. Musculoskeletal: Positive for back pain. Psychiatric/Behavioral: Positive for confusion. Physical Exam ED Triage Vitals [11/14/21 2311] Temp Pulse Resp BP SpO2 36.6 ??C (97.9 ??F) 86 18 133/67 93 % Temp src Heart Rate Source Patient Position BP Location FiO2 (%) Oral -- -- -- -- Height Height Method Weight Weight Method 1.575 m (5' 2 ) Stated 72.6 kg (160 lb) Stated Physical Exam General appearance: no acute distress HEENT: NCAT, MMM, anicteric Lungs: CTAB, breathing non-labored on RA Heart: RRR, S1, S2 normal, no murmurs, rub or gallop. Abdomen: soft, non-tender, non-distended; normal bowel sounds heard Extremities: bilateral LE edema L>R Skin: warm and dry. Stage 1 sacral decubitus ulcer. Left heel ulceration with no erythema, warmth, or drainage. Neurologic: AAOx2, follows commands, moves all extremities well Psych: appropriate affect MDM MDM Barbara Chakraborty is a 71 yo F with PMH of T2DM, schizoaffective disorder, dementia (baseline AAOx2-3) who presents with cough and leg pain. Patient just dishcarged yesterday from [facility] after 10 day admission for PNA and DVT. Daughter concerned about significant coughing at home. DDx includes recurrent PNA, bronchitis, persistent cough following PNA, PE, HF exacerbation. Attending Summary of Care ED Course as of 11/15/21 0528 Time: 11/15 338 Value: Creatinine(!): 2.15 Comment: Cr 2.15 (b/l 1.7-2.0) By: Larry Mccall MD PhD Time: 11/15 404 Value: Troponin I high-sensitivity series (baseline, 2hr, 4hr, 6hr): Trop I hs <4 Comment: Trop negative By: Larry Mccall MD PhD Time: 11/15 410 Value: XR Chest Pa Lateral 2 Vw Comment: CXR IMPRESSION: Comparison radiograph 09/06/2021. There is bibasilar atelectasis. No pleural effusion. Patient is leaning slightly to the left. No pneumothorax. The cardiac mediastinal silhouette is normal. By: Larry Mccall MD PhD Time: 11/16 515 Comment: Spoke with patient's daughter; she wants patient to be admitted for placement By: Larry Mccall MD PhD Cough Weakness Larry Mccall MD PhD Resident 11/15/21 0244 Larry Mccall MD PhD Resident 11/15/21 0528 Cosigned by Taras Rivera MD PhD at 11/15/2021 7:23 AM CDT Associated attestation - Taras Rivera MD PhD - 11/15/2021 7:23 AM CDT I have seen and examined the patient (15Nov2021). I reviewed the resident's note and agree with thefindings and plan of care as documented in the resident's note unless I have documented otherwise. * Melissa Del Angel RN - 11/14/2021 11:12 PM CDT Pt arrived to ED via car with daughter (Areli [phone]) d/t cough and leg pain. Pt was admitted at [facility] in patient x 10 days and d/c today. Pt was admitted at OSH for cough, SOB and weakness. Dx pneumonia at OSH. Pt's daughter states she does not feel safe with her mom being at home and coughing at night . Pt denies any SOB. Pt reports productive cough and weight gain. Pt's daughter states Pt was told to stop taking her diuretic during admission. Hx stage 4 CKD but does not do dialysis. Pt reports BLE leg pain and soreness. Known DVT in left leg with BLE edema. No hx HF. Pt's daughter states Pt is very weak and had difficulty getting her in the car for the ride here. Pt is A&OX4 but dementia, DM, schizophrenia. NAD. VSS. documented in this encounter Miscellaneous Notes * Plan of Care - Santo Vogel MSW - 11/26/2021 8:51 AM CDT Problem: Patient remains at [facility]. Ensure acute medical needs are met and that patient has a safe discharge plan. Goal: Secure a facility that patient/family are agreeable with and ensure patient has continuum of care. Discharge plan: MILO received handoff that pt is ready for discharge and would be going to [facility]. MILO spoke with Naina in Admissions at [facility], facility can NOT accept pt. MILO left message with [facility] Admissions, , requesting call back if that facility could accept pt today. MILO left a message for pt's daughter and updated of above. and RN also notified via secure chat. Addendum 1138: Milo spoke with [facility] Admissions, . Can accept pt tomorrow. MILO willcall tomorrow morning for report and fax numbers. MILO left a message for pt's daughter to update on discharge plan. 1201: MILO spoke with pt's daughter, Areli, updated of above. Areli still willing and able to transport pt. She works until 1630 everyday, but is available after work to transport. Primary contact: Areli Gayle (Daughter) [phone] (Home Phone) Insurance: Medicare A & B Anticipated Discharge Date: Sunday 11/26 SW Following. AKASH Marx PRN [employer] * Plan of Care - Tim Wade RN - 11/26/2021 1:04 AM CDT Goals: Clinical Goals for the Shift: monitor vital signs, I&, fall prevention Summary: Continue to monitor vital signs and accucheck. * Assessment & Plan Note - Reuben Dillon MD - 11/25/2021 2:06 PM CDT Associated Problem(s): Pulmonary nodule CT chest: Right upper lobe 3 mm pulmonary nodule, indeterminate but likely infectious or inflammatory in etiology given the patient's history. Follow-up CT chest in one year to document resolution. * Assessment & Plan Note - Reuben Dillon MD - 11/25/2021 2:06 PM CDT Associated Problem(s): Left leg DVT (HCC) (Resolved 11/10/2023) Recently diagnosed at OSH. Continue eliquis -Check labs--6/7 AM. * Assessment & Plan Note - Reuben Dillon MD - 11/25/2021 2:06 PM CDT Associated Problem(s): Physical deconditioning Deconditioning 2/2 prolonged hospitalization. Daughter reports that prior to her illness, she was independent with a walker. - PT/OT [facility] SNF. [facility] ? * Assessment & Plan Note - Reuben Dillon MD - 11/25/2021 2:06 PM CDT Associated Problem(s): Cough (Resolved 01/14/2022) Persistent cough which is actually getting worse [...] - RVP +Metapneumovirus - supportive care, resolved. 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 Follows with outpatient nephrology. Baseline seems to be around 2-2.3. At baseline on admission. ProBNP 176 on admit. - Cut down lasix to 20 mg daily for volume status maintenance. Adjust as needed. * Assessment & Plan Note - Reuben Dillon MD - 11/25/2021 2:05 PM CDT Associated Problem(s): Schizoaffective disorder, bipolar type (CMS/HCC) (HCC) Chronic, continue Risperdal, stable mood. * Assessment & Plan Note - Reuben Dillon MD - 11/25/2021 2:05 PM CDT Associated Problem(s): Dementia ([facility]) (Deleted) Diagnosed 3 years ago. AOx3 at baseline. 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 Has short term memory issues. Continue supportive care. * Assessment & Plan Note - Reuben Dillon MD - 11/25/2021 2:05 PM CDT Associated Problem(s): Mixed hyperlipidemia Continue statin * Assessment & Plan Note - Reuben Dillon MD - 11/25/2021 2:04 PM CDT Associated Problem(s): Type 2 diabetes mellitus with diabetic neuropathy, with long-term current use of insulin (HCC) Home regimen includes lantus 25 units + Humalog 8 units with meals + SSI, trulicity. BG WNL on arrival. - Cut down lantus to 23 units with + 6 units mealtime + SSI, adjust as needed. Mostly under control. - Continue lyrica for neuropathy - HbA1C 8.2 * Subjective & Objective - Reuben Dillon MD - 11/25/2021 2:00 PM CDT Daily Progress Note Division of Hospital Medicine Name: Barbara Chakraborty Today: November 25, 2021 : 1950 Age: 71 y.o. female Admit: 11/15/2021 Bed: [id number] Subjective Chief complaint: Feels well , denies any cough or SOB. Interval History: - per d/w on 11/25, pend bed availability at [facility] ( pt,s family first preference). If not will call alternate places 11/26. Objective Medications: Scheduled: apixaban, 5 mg, oral, Q12H SOL atorvastatin, 40 mg, oral, Daily benzonatate, 100 mg, oral, TID carvediloL, 3.125 mg, oral, BID with meals (bkfst, dinner) famotidine, 20 mg, oral, Daily furosemide, 20 mg, oral, Daily guaiFENesin ER, 1,200 mg, oral, BID insulin glargine, 23 Units, subcutaneous, Nightly insulin lispro, 0-4 Units, subcutaneous, Nightly insulin lispro, 0-5 Units, subcutaneous, TID with meals insulin lispro, 6 Units, subcutaneous, TID with meals pregabalin, 150 mg, oral, Nightly risperiDONE, 2 mg, oral, Nightly sodium chloride 0.9%, 0.5-20 mL, intra-catheter, Q8H SOL Infusions: PRN: acetaminophen dextrose OR dextrose glucagon ondansetron ODT OR ondansetron polyethylene glycol ramelteon sodium chloride 0.9% Vitals: 24hr Min/Max: Temp Min: 36.4 ??C (97.5 ??F) Max: 36.9 ??C (98.4 ??F) Pulse Min: 67 Max: 73 BP Min: 115/49 Max: 140/57 Resp Min: 18 Max: 20 SpO2 Min: 98 % Max: 100 % Most Recent: Vitals: 11/25/21 0835 BP: 115/49 Pulse: 68 Resp: 20 Temp: 36.5 ??C (97.7 ??F) SpO2: 100% Intake/Output Summary (Last 24 hours) at 11/25/2021 1400 Last data filed at 11/25/2021 0425 Gross per 24 hour Intake 360 ml Output 1650 ml Net -1290 ml Physical Exam Gen: Comfortable in bed, NAD, on RA. HEENT: NCAT Heart: RRR Lungs: CTA, no rales. Abd: +BS, soft, NT Ext: moves all extremities; no edema Neuro: alert and oriented to name, place and situation. Psych: Calm. Lab/Diagnostic Review: Recent Results (from the past 36 hour(s)) POCT glucose Collection Time: 11/24/21 7:18 AM Result Value Ref Range Glucose, POC 187 70 - 199 mg/dL POCT glucose Collection Time: 11/24/21 11:28 AM Result Value Ref Range Glucose, POC 226 (H) 70 - 199 mg/dL POCT glucose Collection Time: 11/24/21 3:06 PM Result Value Ref Range Glucose, POC 125 70 - 199 mg/dL POCT glucose Collection Time: 11/24/21 4:59 PM Result Value Ref Range Glucose, POC 104 70 - 199 mg/dL POCT glucose Collection Time: 11/24/21 8:29 PM Result Value Ref Range Glucose, POC 168 70 - 199 mg/dL POCT glucose Collection Time: 11/25/21 8:32 AM Result Value Ref Range Glucose, POC 140 70 - 199 mg/dL POCT glucose Collection Time: 11/25/21 12:09 PM Result Value Ref Range Glucose, POC 224 (H) 70 - 199 mg/dL I have reviewed the laboratory results. Imaging Results: CT Chest WO Contrast Narrative: EXAMINATION: Computed tomography of the chest without intravenous contrast HISTORY: Worsening cough, recently treated pneumonia. TECHNIQUE: Transaxial computed tomographic images of the chest were obtained without intravenous contrast according to the standard protocol. COMPARISON: No direct comparison available. Chest radiograph 11/15/2021. FINDINGS: Patent central airways. There is mild smooth bronchial wall thickening in the lower lobes. Mild left greater than right bibasilar atelectasis without convincing consolidation. Left apical pleural-parenchymal scarring. There is a 3 mm nodule in the right upper lobe (table position -891.0). No pneumothorax or pleural effusion. Normal heart size. No pericardial effusion. Coronary artery calcifications. Normal caliber thoracic aorta and main pulmonary artery. No supraclavicular, axillary, hilar or mediastinal lymphadenopathy. Calcified lung granulomas and hilar lymph nodes, in keeping with old granulomatous disease. Images of the upper abdomen are unremarkable. No suspicious osseous lesions. Impression: 1. Mild smooth bronchial wall thickening in the lower lobes without consolidation, possibly reflecting bronchitis or sequela of aspiration. 2. Right upper lobe 3 mm pulmonary nodule, indeterminate but likely infectious or inflammatory in etiology given the patient's history. Consider follow-up CT chest in one year to document resolution if there are clinical risk factors. Dictated by: Poli Eagle MD PHD The radiology attending physician has personally reviewed this study, and had reviewed and/or edited this written report and agrees with it. * Plan of Care - Cassidy Rodriguez LCSW - 11/25/2021 11:39 AM CDT Problem:??Patient remains at [facility]. Ensure acute medical needs are met and that patient has a safe discharge plan. ?? Goal:??Secure a safe d/c plan that patient/family are agreeable with and ensure patient has continuum of care. ?? Discharge plan:?? MILO attempted to contact [facility] for today's pending discharge. SW left for admissions. SW received call from Areli who requested an update. MILO informed her of the above. Areli requested information on transporation to the facility. MILO discussed 1.) ambulance or 2.) it the medical team felt it was safe, potentially family could transport her. Areli stated she would feel comfortable transporting the pt if the medical team felt it was safe. MILO messaged attending to determine if that transportation plan is safe. ?? MILO attempted to contact [facility] for today's pending discharge. SW left for admissions. Primary contact:?? Areli Gayle (Daughter) [phone] (Home Phone) ?? Insurance:?? Medicare A&B ?? Anticipated Discharge Date:??Saturday 11/25 ?? SW to follow. AKASH Obrien LCSW * Plan of Care - Krystal Philip RN - 11/25/2021 11:02 AM CDT Goals: Clinical Goals for the Shift: montior vital signs, accucheck, and I&O Summary: Patient up to the chair with OT this AM - 1 assist back to bed with gaitbelt and 2ww. Resting comfortably in bed. Problem: Health Behavior: Goal: Understanding of discharge needs will improve Outcome: Progressing Problem: Activity: Goal: Mobility will [...] to fullest extent possible Outcome: Progressing Problem: Lack of Knowledge: Goal: Ability to state ways to decrease the risk of falls will improve Outcome: Progressing Problem: Safety: Goal: Will remain free from falls Outcome: Progressing Goal: Will remain free from injury from falls Outcome: Progressing Goal: Will remain free from falls and injury in home environment Outcome: Progressing * Plan of Care - Tim Wade RN - 11/24/2021 9:40 PM CDT Goals: Clinical Goals for the Shift: montior vital signs, accucheck, and I&O Summary: Continue to monitor pt's vital signs, accucheck, I&O * Assessment & Plan Note - Reuben Dillon MD - 11/24/2021 2:07 PM CDT Associated Problem(s): Pulmonary nodule CT chest: Right upper lobe 3 mm pulmonary nodule, indeterminate but likely infectious or inflammatory in etiology given the patient's history. Follow-up CT chest in one year to document resolution. * Assessment & Plan Note - Reuben Dillon MD - 11/24/2021 2:07 PM CDT Associated Problem(s): Left leg DVT (HCC) (Resolved 11/10/2023) Recently diagnosed at OSH. Continue eliquis * Assessment & Plan Note - Reuben Dillon MD - 11/24/2021 2:07 PM CDT Associated Problem(s): Physical deconditioning Deconditioning 2/2 prolonged hospitalization. Daughter reports that prior to her illness, she was independent with a walker. - PT/OT recommends SNF. -Plan [facility] on 11/25. * Assessment & Plan Note - Reuben Dillon MD - 11/24/2021 2:07 PM CDT Associated Problem(s): Cough (Resolved 01/14/2022) Persistent cough which is actually getting worse [...] - RVP +Metapneumovirus - supportive care, resolved. 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 Follows with outpatient nephrology. Baseline seems to be around 2-2.3. At baseline on admission. ProBNP 176 on admit. - Cut down lasix to 20 mg daily for volume status maintenance. Adjust as needed. * Assessment & Plan Note - Reuben Dillon MD - 11/24/2021 2:06 PM CDT Associated Problem(s): Schizoaffective disorder, bipolar type (CMS/HCC) (HCC) Continue Risperdal, stable mood. * Assessment & Plan Note - Reuben Dillon MD - 11/24/2021 2:06 PM CDT Associated Problem(s): Mixed hyperlipidemia Continue statin * Assessment & Plan Note - Reuben Dillon MD - 11/24/2021 2:06 PM CDT Associated Problem(s): Dementia ([facility]) (Deleted) Diagnosed 3 years ago. AOx3 at baseline. 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 Has short term memory issues. Continue supportive care. * Assessment & Plan Note - Reuben Dillon MD - 11/24/2021 2:06 PM CDT Associated Problem(s): Type 2 diabetes mellitus with diabetic neuropathy, with long-term current use of insulin (HCC) Home regimen includes lantus 25 units + Humalog 8 units with meals + SSI, trulicity. BG WNL on arrival. - Cut down lantus to 23 units with + 6 units mealtime + SSI, adjust as needed. - Continue lyrica for neuropathy - HbA1C 8.2 * Subjective & Objective - Reuben Dillon MD - 11/24/2021 2:04 PM CDT Daily Progress Note Division of Hospital Medicine Name: Barbara Chakraborty Today: November 24, 2021 : 1950 Age: 71 y.o. female Admit: 11/15/2021 Bed: [id number] Subjective Chief complaint: Stable with no SOB or CP etc.No cough. Interval History: -Plan [facility], [facility] tomorrow. Objective Medications: Scheduled: apixaban, 5 mg, oral, Q12H SOL atorvastatin, 40 mg, oral, Daily benzonatate, 100 mg, oral, TID carvediloL, 3.125 mg, oral, BID with meals (bkfst, dinner) famotidine, 20 mg, oral, Daily furosemide, 20 mg, oral, Daily guaiFENesin ER, 1,200 mg, oral, BID insulin glargine, 23 Units, subcutaneous, Nightly insulin lispro, 0-4 Units, subcutaneous, Nightly insulin lispro, 0-5 Units, subcutaneous, TID with meals insulin lispro, 6 Units, subcutaneous, TID with meals pregabalin, 150 mg, oral, Nightly risperiDONE, 2 mg, oral, Nightly sodium chloride 0.9%, 0.5-20 mL, intra-catheter, Q8H SOL Infusions: PRN: acetaminophen dextrose OR dextrose glucagon ondansetron ODT OR ondansetron polyethylene glycol ramelteon sodium chloride 0.9% Vitals: 24hr Min/Max: Temp Min: 36.5 ??C (97.7 ??F) Max: 36.9 ??C (98.4 ??F) Pulse Min: 71 Max: 78 BP Min: 110/42 Max: 139/63 Resp Min: 18 Max: 20 SpO2 Min: 97 % Max: 100 % Most Recent: Vitals: 11/24/21 1100 BP: 124/53 Pulse: 74 Resp: 18 Temp: 36.5 ??C (97.7 ??F) SpO2: 98% Intake/Output Summary (Last 24 hours) at 11/24/2021 1404 Last data filed at 11/24/2021 0520 Gross per 24 hour Intake -- Output 450 ml Net -450 ml Physical Exam Gen: Comfortable in bed, NAD, on RA. HEENT: NCAT Heart: RRR Lungs: CTA, no rales or wheezing. Abd: +BS, soft, NT Ext: moves all extremities; no edema Neuro: Alert and oriented to name, place and situation. Psych: Cam. Lab/Diagnostic Review: Recent Results (from the past 36 hour(s)) POCT glucose Collection Time: 11/23/21 7:25 AM Result Value Ref Range Glucose, POC 131 70 - 199 mg/dL POCT glucose Collection Time: 11/23/21 11:40 AM Result Value Ref Range Glucose, POC 169 70 - 199 mg/dL POCT glucose Collection Time: 11/23/21 4:57 PM Result Value Ref Range Glucose, POC 192 70 - 199 mg/dL Glucose comment 1 Glu2: RN/MD Notified POCT glucose Collection Time: 11/23/21 9:16 PM Result Value Ref Range Glucose, POC 203 (H) 70 - 199 mg/dL POCT glucose Collection Time: 11/24/21 7:18 AM Result Value Ref Range Glucose, POC 187 70 - 199 mg/dL POCT glucose Collection Time: 11/24/21 11:28 AM Result Value Ref Range Glucose, POC 226 (H) 70 - 199 mg/dL I have reviewed the laboratory results. Imaging Results: CT Chest WO Contrast Narrative: EXAMINATION: Computed tomography of the chest without intravenous contrast HISTORY: Worsening cough, recently treated pneumonia. TECHNIQUE: Transaxial computed tomographic images of the chest were obtained without intravenous contrast according to the standard protocol. COMPARISON: No direct comparison available. Chest radiograph 11/15/2021. FINDINGS: Patent central airways. There is mild smooth bronchial wall thickening in the lower lobes. Mild left greater than right bibasilar atelectasis without convincing consolidation. Left apical pleural-parenchymal scarring. There is a 3 mm nodule in the right upper lobe (table position -891.0). No pneumothorax or pleural effusion. Normal heart size. No pericardial effusion. Coronary artery calcifications. Normal caliber thoracic aorta and main pulmonary artery. No supraclavicular, axillary, hilar or mediastinal lymphadenopathy. Calcified lung granulomas and hilar lymph nodes, in keeping with old granulomatous disease. Images of the upper abdomen are unremarkable. No suspicious osseous lesions. Impression: 1. Mild smooth bronchial wall thickening in the lower lobes without consolidation, possibly reflecting bronchitis or sequela of aspiration. 2. Right upper lobe 3 mm pulmonary nodule, indeterminate but likely infectious or inflammatory in etiology given the patient's history. Consider follow-up CT chest in one year to document resolution if there are clinical risk factors. Dictated by: Poli Eagle MD PHD The radiology attending physician has personally reviewed this study, and had reviewed and/or edited this written report and agrees with it. * Plan of Care - Sarahy Rosas RN - 11/24/2021 10:35 AM CDT Goals: Clinical Goals for the Shift: monitor vs, labs, poct bg, I&Os; remain hemodynamically stable and free from falls Summary: Ms. Chakraborty is AO to self, on room air. Vitals as charted. No c/o pain. No acute distress noted at this time. Will continue to monitor. Problem: Health Behavior: Goal: Understanding of discharge needs will improve Outcome: Progressing Problem: Activity: Goal: Mobility will [...] to fullest extent possible Outcome: Progressing Problem: Lack of Knowledge: Goal: Ability to state ways to decrease the risk of falls will improve Outcome: Progressing Problem: Safety: Goal: Will remain free from falls Outcome: Progressing Goal: Will remain free from injury from falls Outcome: Progressing Goal: Will remain free from falls and injury in home environment Outcome: Progressing * Plan of Care - Juan Martinez RN - 11/23/2021 9:07 PM CDT Problem: Health Behavior: Goal: Understanding of discharge needs will improve 11/23/20212106 by Juan Martinez RN Outcome: Progressing 11/23/20212105 by Juan Martinez RN Outcome: Progressing Problem: Activity: Goal: Mobility will improve 11/23/20212106 by Juan Martinez RN Outcome: Progressing 11/23/20212105 by Juan Martinez RN Outcome: Progressing Problem: Lack of Knowledge: Goal: Understanding of ways to prevent future skin breakdown will improve 11/23/20212106 by Juan Martinez RN Outcome: Progressing 11/23/20212105 by Juan Martinez RN Outcome: Progressing Goal: Ability to identify appropriate dietary choices will improve 11/23/20212106 by Juan Martinez RN Outcome: Progressing 11/23/20212105 by Juan Martinez RN Outcome: Progressing Problem: Nutritional: Goal: Dietary intake will improve 11/23/20212106 by Juan Martinez RN Outcome: Progressing 11/23/20212105 by Juan Martinez RN Outcome: Progressing Goal: Ability to maintain a balanced intake and output will improve 11/23/20212106 by Juan Martinez RN Outcome: Progressing 11/23/20212105 by Juan Martinez RN Outcome: Progressing Problem: Skin Integrity: Goal: Risk for impaired skin integrity will decrease 11/23/20212106 by Juan Martinez RN Outcome: Progressing 11/23/20212105 by Juan Martinez RN Outcome: Progressing Goal: Ability to demonstrate warm and dry skin will improve 11/23/20212106 by Juan Martinez RN Outcome: Progressing 11/23/20212105 by Juan Martinez RN Outcome: Progressing Goal: Circulation will improve to fullest extent possible 11/23/20212106 by Juan Martinez RN Outcome: Progressing 11/23/20212105 by Juan Martinez RN Outcome: Progressing Problem: Lack of Knowledge: Goal: Ability to state ways to decrease the risk of falls will improve 11/23/20212106 by Juan Martinez RN Outcome: Progressing 11/23/20212105 by Juan Martinez RN Outcome: Progressing Problem: Safety: Goal: Will remain free from falls 11/23/20212106 by Juan Martinez RN Outcome: Progressing 11/23/20212105 by Juan Martinez RN Outcome: Progressing Goal: Will remain free from injury from falls 11/23/20212106 by Juan Martinez RN Outcome: Progressing 11/23/20212105 by Juan Martinez RN Outcome: Progressing Goal: Will remain free from falls and injury in home environment 11/23/20212106 by Juan Martinez RN Outcome: Progressing 11/23/20212105 by Juan Martinez RN Outcome: Progressing Goals: Clinical Goals for the Shift: Monitor VS, I/Os, accuchecks, safe ambulation Summary: Patient is progressing toward goals, waiting on placement. Will continue to monitor. * Assessment & Plan Note - Reuben Dillon MD - 11/23/2021 12:24 PM CDT Associated Problem(s): Pulmonary nodule CT chest: Right upper lobe 3 mm pulmonary nodule, indeterminate but likely infectious or inflammatory in etiology given the patient's history. Follow-up CT chest in one year to document resolution. * Assessment & Plan Note - Reuben Dillon MD - 11/23/2021 12:24 PM CDT Associated Problem(s): Left leg DVT (HCC) (Resolved 11/10/2023) Recently diagnosed at OSH. Continue eliquis * Assessment & Plan Note - Reuben Dillon MD - 11/23/2021 12:24 PM CDT Associated Problem(s): Physical deconditioning Deconditioning 2/2 prolonged hospitalization. Daughter reports that prior to her illness, she was independent with a walker. - PT/OT recommends SNF. -Plan [facility] on 11/25. * Assessment & Plan Note - Reuben Dillon MD - 11/23/2021 12:24 PM CDT Associated Problem(s): Cough (Resolved 01/14/2022) Persistent cough which is actually getting worse [...] - RVP +Metapneumovirus - supportive care, improved. 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 Follows with outpatient nephrology. Baseline seems to be around 2-2.3. At baseline on admission. ProBNP 176 on admit. - Cut down lasix to 20 mg daily for volume status maintenance. Adjust as needed. * Assessment & Plan Note - Reuben Dillon MD - 11/23/2021 12:24 PM CDT Associated Problem(s): Schizoaffective disorder, bipolar type (CMS/HCC) (HCC) Continue Risperdal, stable mood. * Assessment & Plan Note - Reuben Dillon MD - 11/23/2021 12:23 PM CDT Associated Problem(s): Dementia (HCC) (Deleted) Diagnosed 3 years ago. AOx3 at baseline. 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 Has short term memory issues. Continue supportive care. * Assessment & Plan Note - Reuben Dillon MD - 11/23/2021 12:23 PM CDT Associated Problem(s): Mixed hyperlipidemia Continue statin * Assessment & Plan Note - Reuben Dillon MD - 11/23/2021 12:23 PM CDT Associated Problem(s): Type 2 diabetes mellitus with diabetic neuropathy, with long-term current use of insulin (HCC) Home regimen includes lantus 25 units + Humalog 8 units with meals + SSI, trulicity. BG WNL on arrival. - Cut down lantus to 23 units with + 6 units mealtime + SSI, adjust as needed. - Continue lyrica for neuropathy - HbA1C 8.2 * Subjective & Objective - Reuben Dillon MD - 11/23/2021 12:21 PM CDT Daily Progress Note Division of Hospital Medicine Name: Barbara Chakraborty Today: November 23, 2021 : 1950 Age: 71 y.o. female Admit: 11/15/2021 Bed: [id number] Subjective Chief complaint: Stable with no complaints. Interval History: - D/w on 11/22, [facility] on Thursday. Objective Medications: Scheduled: apixaban, 5 mg, oral, Q12H SOL atorvastatin, 40 mg, oral, Daily benzonatate, 100 mg, oral, TID carvediloL, 3.125 mg, oral, BID with meals (bkfst, dinner) famotidine, 20 mg, oral, Daily furosemide, 20 mg, oral, Daily guaiFENesin ER, 1,200 mg, oral, BID insulin glargine, 23 Units, subcutaneous, Nightly insulin lispro, 0-4 Units, subcutaneous, Nightly insulin lispro, 0-5 Units, subcutaneous, TID with meals insulin lispro, 6 Units, subcutaneous, TID with meals pregabalin, 150 mg, oral, Nightly risperiDONE, 2 mg, oral, Nightly sodium chloride 0.9%, 0.5-20 mL, intra-catheter, Q8H SOL Infusions: PRN: acetaminophen dextrose OR dextrose glucagon ondansetron ODT OR ondansetron polyethylene glycol ramelteon sodium chloride 0.9% Vitals: 24hr Min/Max: Temp Min: 36.4 ??C (97.5 ??F) Max: 37 ??C (98.6 ??F) Pulse Min: 66 Max: 73 BP Min: 105/56 Max: 134/59 Resp Min: 18 Max: 20 SpO2 Min: 95 % Max: 98 % Most Recent: Vitals: 11/23/21 1142 BP: 126/64 Pulse: 71 Resp: 20 Temp: 36.4 ??C (97.5 ??F) SpO2: 97% Intake/Output Summary (Last 24 hours) at 11/23/2021 1221 Last data filed at 11/23/2021 0700 Gross per 24 hour Intake 120 ml Output -- Net 120 ml Physical Exam Gen: Comfortable in bed, NAD, on RA. HEENT: NCAT Heart: RRR Lungs: CTA, no rales. Abd: +BS, soft, NT Ext: moves all extremities; no edema Neuro: alert and oriented to name, place . Psych: Calm. Lab/Diagnostic Review: Recent Results (from the past 36 hour(s)) POCT glucose Collection Time: 11/22/21 7:28 AM Result Value Ref Range Glucose, POC 156 70 - 199 mg/dL POCT glucose Collection Time: 11/22/21 11:01 AM Result Value Ref Range Glucose, POC 214 (H) 70 - 199 mg/dL POCT glucose Collection Time: 11/22/21 4:44 PM Result Value Ref Range Glucose, POC 147 70 - 199 mg/dL POCT glucose Collection Time: 11/22/21 7:43 PM Result Value Ref Range Glucose, POC 115 70 - 199 mg/dL POCT glucose Collection Time: 11/23/21 7:25 AM Result Value Ref Range Glucose, POC 131 70 - 199 mg/dL POCT glucose Collection Time: 11/23/21 11:40 AM Result Value Ref Range Glucose, POC 169 70 - 199 mg/dL I have reviewed the laboratory results. Imaging Results: CT Chest WO Contrast Narrative: EXAMINATION: Computed tomography of the chest without intravenous contrast HISTORY: Worsening cough, recently treated pneumonia. TECHNIQUE: Transaxial computed tomographic images of the chest were obtained without intravenous contrast according to the standard protocol. COMPARISON: No direct comparison available. Chest radiograph 11/15/2021. FINDINGS: Patent central airways. There is mild smooth bronchial wall thickening in the lower lobes. Mild left greater than right bibasilar atelectasis without convincing consolidation. Left apical pleural-parenchymal scarring. There is a 3 mm nodule in the right upper lobe (table position -891.0). No pneumothorax or pleural effusion. Normal heart size. No pericardial effusion. Coronary artery calcifications. Normal caliber thoracic aorta and main pulmonary artery. No supraclavicular, axillary, hilar or mediastinal lymphadenopathy. Calcified lung granulomas and hilar lymph nodes, in keeping with old granulomatous disease. Images of the upper abdomen are unremarkable. No suspicious osseous lesions. Impression: 1. Mild smooth bronchial wall thickening in the lower lobes without consolidation, possibly reflecting bronchitis or sequela of aspiration. 2. Right upper lobe 3 mm pulmonary nodule, indeterminate but likely infectious or inflammatory in etiology given the patient's history. Consider follow-up CT chest in one year to document resolution if there are clinical risk factors. Dictated by: Poli Eagle MD PHD The radiology attending physician has personally reviewed this study, and had reviewed and/or edited this written report and agrees with it. * Plan of Care - Sarahy Rosas RN - 11/23/2021 12:05 PM CDT Goals: Clinical Goals for the Shift: Monitor vs, labs, I&Os; promote safety and comfort Summary: Ms. Chakraborty is AO to self, on room air. Vitals as charted. No c/o pain. Up with assistanceto commode. No acute distress noted at this time. Will continue to monitor. Problem: Health Behavior: Goal: Understanding of discharge needs will improve Outcome: Progressing Problem: Activity: Goal: Mobility will [...] to fullest extent possible Outcome: Progressing Problem: Lack of Knowledge: Goal: Ability to state ways to decrease the risk of falls will improve Outcome: Progressing Problem: Safety: Goal: Will remain free from falls Outcome: Progressing Goal: Will remain free from injury from falls Outcome: Progressing Goal: Will remain free from falls and injury in home environment Outcome: Progressing * Plan of Care - Carolyn Berger RN - 11/22/2021 9:55 PM CDT Goals: Clinical Goals for the Shift: Monitor VS, labs, I&O's. Promote safety and rest Summary: Problem: Health Behavior: Goal: Understanding of discharge needs will improve Outcome: Progressing Problem: Activity: Goal: Mobility will [...] to fullest extent possible Outcome: Progressing Problem: Lack of Knowledge: Goal: Ability to state ways to decrease the risk of falls will improve Outcome: Progressing Problem: Safety: Goal: Will remain free from falls Outcome: Progressing Goal: Will remain free from injury from falls Outcome: Progressing Goal: Will remain free from falls and injury in home environment Outcome: Progressing * Assessment & Plan Note - Reuben Dillon MD - 11/22/2021 1:35 PM CDT Associated Problem(s): Pulmonary nodule CT chest: Right upper lobe 3 mm pulmonary nodule, indeterminate but likely infectious or inflammatory in etiology given the patient's history. Follow-up CT chest in one year to document resolution. * Assessment & Plan Note - Reuben Dillon MD - 11/22/2021 1:34 PM CDT Associated Problem(s): Left leg DVT (HCC) (Resolved 11/10/2023) Recently diagnosed at OSH. Continue eliquis * Assessment & Plan Note - Reuben Dillon MD - 11/22/2021 1:34 PM CDT Associated Problem(s): Physical deconditioning Deconditioning 2/2 prolonged hospitalization. Daughter reports that prior to her illness, she was independent with a walker. - PT/OT recommends SNF. -Plan Agueda Rizzo, [facility] on 11/25. * Assessment & Plan Note - Reuben Dillon MD - 11/22/2021 1:34 PM CDT Associated Problem(s): Cough (Resolved 01/14/2022) Persistent cough which is actually getting worse [...] - RVP +Metapneumovirus - supportive care, improved. 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 Follows with outpatient nephrology. Baseline seems to be around 2-2.3. At baseline on admission. ProBNP 176 on admit. - Cut down lasix to 20 mg daily for volume status maintenance. Adjust as needed. * Assessment & Plan Note - Reuben Dillon MD - 11/22/2021 1:34 PM CDT Associated Problem(s): Schizoaffective disorder, bipolar type (CMS/HCC) ([facility]) Continue risperidal * Assessment & Plan Note - Reuben Dillon MD - 11/22/2021 1:34 PM CDT Associated Problem(s): Dementia ([facility]) (Deleted) Diagnosed 3 years ago. AOx3 at baseline. 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 Has short term memory issues. Continue supportive care. * Assessment & Plan Note - Reuben Dillon MD - 11/22/2021 1:34 PM CDT Associated Problem(s): Mixed hyperlipidemia Continue statin * Assessment & Plan Note - Reuben Dillon MD - 11/22/2021 1:34 PM CDT Associated Problem(s): Type 2 diabetes mellitus with diabetic neuropathy, with long-term current use of insulin ([facility]) Home regimen includes lantus 25 units + Humalog 8 units with meals + SSI, trulicity. BG WNL on arrival. - Cut down lantus to 23 units with + 6 units mealtime + SSI, adjust as needed. - Continue lyrica for neuropathy - HbA1C 8.2 * Subjective & Objective - Reuben Dillon MD - 11/22/2021 1:30 PM CDT Daily Progress Note Division of Hospital Medicine Name: Barbara Chakraborty Today: November 22, 2021 : 1950 Age: 71 y.o. female Admit: 11/15/2021 Bed: [id number] Subjective Chief complaint: Doing well with no complaints. Denies any URI sx. Interval History: - Per D/w on 11/22, plan to d/c to [facility] on Thursday ( bed available on Thursday). Family prefers [facility] facility. Objective Medications: Scheduled: apixaban, 5 mg, oral, Q12H SOL atorvastatin, 40 mg, oral, Daily benzonatate, 100 mg, oral, TID carvediloL, 3.125 mg, oral, BID with meals (bkfst, dinner) famotidine, 20 mg, oral, Daily furosemide, 20 mg, oral, Daily guaiFENesin ER, 1,200 mg, oral, BID insulin glargine, 23 Units, subcutaneous, Nightly insulin lispro, 0-4 Units, subcutaneous, Nightly insulin lispro, 0-5 Units, subcutaneous, TID with meals insulin lispro, 6 Units, subcutaneous, TID with meals pregabalin, 150 mg, oral, Nightly risperiDONE, 2 mg, oral, Nightly sodium chloride 0.9%, 0.5-20 mL, intra-catheter, Q8H SOL Infusions: PRN: acetaminophen dextrose OR dextrose glucagon ondansetron ODT OR ondansetron polyethylene glycol ramelteon sodium chloride 0.9% Vitals: 24hr Min/Max: Temp Min: 36.5 ??C (97.7 ??F) Max: 36.9 ??C (98.4 ??F) Pulse Min: 69 Max: 73 BP Min: 111/58 Max: 137/45 Resp Min: 16 Max: 18 SpO2 Min: 93 % Max: 100 % Most Recent: Vitals: 11/22/21 1059 BP: 130/57 Pulse: 69 Resp: 18 Temp: 36.5 ??C (97.7 ??F) SpO2: 93% No intake or output data in the 24 hours ending 11/22/21 1330 Physical Exam Gen: Comfortable in bed, NAD, on RA. HEENT: NCAT Heart: RRR Lungs: CTA, no rales. Abd: +BS, soft, NT Ext: moves all extremities; no edema Neuro: Alert and oriented to name, place and situation. Psych: Cam. Lab/Diagnostic Review: Recent Results (from the past 36 hour(s)) POCT glucose Collection Time: 11/21/21 7:46 AM Result Value Ref Range Glucose, POC 128 70 - 199 mg/dL POCT glucose Collection Time: 11/21/21 11:30 AM Result Value Ref Range Glucose, POC 160 70 - 199 mg/dL POCT glucose Collection Time: 11/21/21 4:46 PM Result Value Ref Range Glucose, POC 180 70 - 199 mg/dL POCT glucose Collection Time: 11/21/21 9:42 PM Result Value Ref Range Glucose, POC 210 (H) 70 - 199 mg/dL POCT glucose Collection Time: 11/22/21 7:28 AM Result Value Ref Range Glucose, POC 156 70 - 199 mg/dL POCT glucose Collection Time: 11/22/21 11:01 AM Result Value Ref Range Glucose, POC 214 (H) 70 - 199 mg/dL I have reviewed the laboratory results. Imaging Results: CT Chest WO Contrast Narrative: EXAMINATION: Computed tomography of the chest without intravenous contrast HISTORY: Worsening cough, recently treated pneumonia. TECHNIQUE: Transaxial computed tomographic images of the chest were obtained without intravenous contrast according to the standard protocol. COMPARISON: No direct comparison available. Chest radiograph 11/15/2021. FINDINGS: Patent central airways. There is mild smooth bronchial wall thickening in the lower lobes. Mild left greater than right bibasilar atelectasis without convincing consolidation. Left apical pleural-parenchymal scarring. There is a 3 mm nodule in the right upper lobe (table position -891.0). No pneumothorax or pleural effusion. Normal heart size. No pericardial effusion. Coronary artery calcifications. Normal caliber thoracic aorta and main pulmonary artery. No supraclavicular, axillary, hilar or mediastinal lymphadenopathy. Calcified lung granulomas and hilar lymph nodes, in keeping with old granulomatous disease. Images of the upper abdomen are unremarkable. No suspicious osseous lesions. Impression: 1. Mild smooth bronchial wall thickening in the lower lobes without consolidation, possibly reflecting bronchitis or sequela of aspiration. 2. Right upper lobe 3 mm pulmonary nodule, indeterminate but likely infectious or inflammatory in etiology given the patient's history. Consider follow-up CT chest in one year to document resolution if there are clinical risk factors. Dictated by: Poli Eagle MD PHD The radiology attending physician has personally reviewed this study, and had reviewed and/or edited this written report and agrees with it. * Plan of Care - Cassidy Rodriguez LCSW - 11/22/2021 12:48 PM CDT Problem: Patient remains at [facility]. Ensure acute medical needs are met and that patient has a safe discharge plan. ?? Goal: Secure a safe d/c plan that patient/family are agreeable with and ensure patient has continuum of care. ?? Discharge plan: MILO followed up with the facilities to determine potential placement options: ?? [facility]- Able to accept [facility]- Able to accept pt on Thursday SW attempted to contact daughter to inform her that [facility] is able to accept the pt on Thursday. SW left for return call with 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. MILO informed the attending of the above. ?? Primary contact: Areli Gayle (Daughter) [phone] (Home Phone) ?? Insurance: Medicare A&B ?? Anticipated Discharge Date: Saturday 11/25 ?? SW to follow. AKASH Obrien, STEPHANIA * Plan of Care - Meg Julien RN - 11/22/2021 7:24 AM CDT Goals: Clinical Goals for the Shift: Monitor VS, labs, I&O's. Promote safety and rest Summary: * Plan of Care - Carolyn Berger RN - 11/21/2021 10:49 PM CDT Goals: Clinical Goals for the Shift: Monitor VS, labs, I&O's. Promote safety and rest Summary: Problem: Health Behavior: Goal: Understanding of discharge needs will improve Outcome: Progressing Problem: Activity: Goal: Mobility will [...] to fullest extent possible Outcome: Progressing Problem: Lack of Knowledge: Goal: Ability to state ways to decrease the risk of falls will improve Outcome: Progressing Problem: Safety: Goal: Will remain free from falls Outcome: Progressing Goal: Will remain free from injury from falls Outcome: Progressing Goal: Will remain free from falls and injury in home environment Outcome: Progressing * Plan of Care - Cassidy Rodriguez LCSW - 11/21/2021 12:56 PM CDT Problem: Patient remains at [facility]. Ensure acute medical needs are met and that patient has a safe discharge plan. Goal: Secure a safe d/c plan that patient/family are agreeable with and ensure patient has continuum of care. Discharge plan: MILO followed up with the facilities to determine potential placement options [facility]- [facility]ed [facility]- Unable to accept pt [facility]- [facility] but expressed concerns over mental health [facility]- left a vm for return call [place]- SW left a vm for a return call. MILO contacted Areli to inform her of the above and clarify pt's behavior over the last 2 years forpotential mental health screen for facilities. Areli verbalized understanding and agreement to sending a referral to [facility] as they may have beds available. 2:46 PM MILO informed [facility] is able to accept pt tomorrow. MILO contacted Areli to inform her of the update. Areli stated she would prefer to hear if [facility] is able to accept the pt before she commits to [facility]. MILO will continue to try [facility] but if no response is received by noon, [facility] may be the d/c plan. Areli verbalized understanding. Primary contact: Areli Gayle (Daughter) [phone] (Home Phone) Insurance: Medicare A&B Anticipated Discharge Date: pending placement SW to follow. Cassidy Rodriguez, PRUNER, PRESS MANAGER * Assessment & Plan Note - Reuben Dillon MD - 11/21/2021 12:13 PM CDT Associated Problem(s): Pulmonary nodule CT chest: Right upper lobe 3 mm pulmonary nodule, indeterminate but likely infectious or inflammatory in etiology given the patient's history. Follow-up CT chest in one year to document resolution. * Assessment & Plan Note - Reuben Dillon MD - 11/21/2021 12:13 PM CDT Associated Problem(s): Left leg DVT (HCC) (Resolved 11/10/2023) Recently diagnosed at OSH. Continue eliquis * Assessment & Plan Note - Reuben Dillon MD - 11/21/2021 12:13 PM CDT Associated Problem(s): Physical deconditioning Deconditioning 2/2 prolonged hospitalization. Daughter reports that prior to her illness, she was independent with a walker. - PT/OT recommends SNF. * Assessment & Plan Note - Reuben Dillon MD - 11/21/2021 12:13 PM CDT Associated Problem(s): Cough (Resolved 01/14/2022) Persistent cough which is actually getting worse [...] - RVP +Metapneumovirus - supportive care, improved. 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 Follows with outpatient nephrology. Baseline seems to be around 2-2.3. At baseline on admission. ProBNP 176 on admit. - Cut down lasix to 20 mg daily for volume status maintenance. Adjust as needed. * Assessment & Plan Note - Reuben Dillon MD - 11/21/2021 12:13 PM CDT Associated Problem(s): Schizoaffective disorder, bipolar type (CMS/HCC) (HCC) Continue risperidal * Assessment & Plan Note - Reuben Dillon MD - 11/21/2021 12:13 PM CDT Associated Problem(s): Dementia (HCC) (Deleted) Diagnosed 3 years ago. AOx3 at baseline. Relatively preserved [facility] memory. Has short term memory issues. Continue supportive care. * Assessment & Plan Note - Reuben Dillon MD - 11/21/2021 12:13 PM CDT Associated Problem(s): Mixed hyperlipidemia Continue statin * Assessment & Plan Note - Reuben Dillon MD - 11/21/2021 12:13 PM CDT Associated Problem(s): Type 2 diabetes mellitus with diabetic neuropathy, with long-term current use of insulin (HCC) Home regimen includes lantus 25 units + Humalog 8 units with meals + SSI, trulicity. BG WNL on arrival. - Cut down lantus to 23 units with + 6 units mealtime + SSI, adjust as needed. - Continue lyrica for neuropathy - HbA1C 8.2 * Subjective & Objective - Reuben Dillon MD - 11/21/2021 12:10 PM CDT Daily Progress Note Division of Hospital Medicine Name: Barbara Chakraborty Today: November 21, 2021 : 1950 Age: 71 y.o. female Admit: 11/15/2021 Bed: [id number] Subjective Chief complaint: Denies any SOB or pain. Interval History: -pend placement, referrals placed, as per SW. Objective Medications: Scheduled: apixaban, 5 mg, oral, Q12H SOL atorvastatin, 40 mg, oral, Daily benzonatate, 100 mg, oral, TID carvediloL, 3.125 mg, oral, BID with meals (bkfst, dinner) famotidine, 20 mg, oral, Daily furosemide, 20 mg, oral, Daily guaiFENesin ER, 1,200 mg, oral, BID insulin glargine, 23 Units, subcutaneous, Nightly insulin lispro, 0-4 Units, subcutaneous, Nightly insulin lispro, 0-5 Units, subcutaneous, TID with meals insulin lispro, 6 Units, subcutaneous, TID with meals pregabalin, 150 mg, oral, Nightly risperiDONE, 2 mg, oral, Nightly sodium chloride 0.9%, 0.5-20 mL, intra-catheter, Q8H SOL Infusions: PRN: acetaminophen dextrose OR dextrose glucagon ondansetron ODT OR ondansetron polyethylene glycol ramelteon sodium chloride 0.9% Vitals: 24hr Min/Max: Temp Min: 36.2 ??C (97.2 ??F) Max: 36.8 ??C (98.2 ??F) Pulse Min: 65 Max: 76 BP Min: 105/50 Max: 137/57 Resp Min: 16 Max: 18 SpO2 Min: 95 % Max: 98 % Most Recent: Vitals: 11/21/21 1131 BP: 134/63 Pulse: 65 Resp: 16 Temp: 36.7 ??C (98.1 ??F) SpO2: 98% Intake/Output Summary (Last 24 hours) at 11/21/2021 1211 Last data filed at 11/21/2021 0550 Gross per 24 hour Intake -- Output 400 ml Net -400 ml Physical Exam Gen: Comfortable in bed, NAD, on RA. HEENT: NCAT Heart: RRR Lungs: CTA, no rales. Abd: +BS, soft, NT Ext: moves all extremities; no edema Neuro: alert and oriented to name, place and situation. Psych: Calm. Lab/Diagnostic Review: Recent Results (from the past 36 hour(s)) POCT glucose Collection Time: 11/20/21 4:43 AM Result Value Ref Range Glucose, POC 158 70 - 199 mg/dL POCT glucose Collection Time: 11/20/21 7:24 AM Result Value Ref Range Glucose, POC 182 70 - 199 mg/dL POCT glucose Collection Time: 11/20/21 11:01 AM Result Value Ref Range Glucose, POC 222 (H) 70 - 199 mg/dL POCT glucose Collection Time: 11/20/21 4:45 PM Result Value Ref Range Glucose, POC 113 70 - 199 mg/dL POCT glucose Collection Time: 11/20/21 8:06 PM Result Value Ref Range Glucose, POC 98 70 - 199 mg/dL POCT glucose Collection Time: 11/20/21 11:37 PM Result Value Ref Range Glucose, POC 142 70 - 199 mg/dL POCT glucose Collection Time: 11/21/21 7:46 AM Result Value Ref Range Glucose, POC 128 70 - 199 mg/dL POCT glucose Collection Time: 11/21/21 11:30 AM Result Value Ref Range Glucose, POC 160 70 - 199 mg/dL I have reviewed the laboratory results. Imaging Results: CT Chest WO Contrast Narrative: EXAMINATION: Computed tomography of the chest without intravenous contrast HISTORY: Worsening cough, recently treated pneumonia. TECHNIQUE: Transaxial computed tomographic images of the chest were obtained without intravenous contrast according to the standard protocol. COMPARISON: No direct comparison available. Chest radiograph 11/15/2021. FINDINGS: Patent central airways. There is mild smooth bronchial wall thickening in the lower lobes. Mild left greater than right bibasilar atelectasis without convincing consolidation. Left apical pleural-parenchymal scarring. There is a 3 mm nodule in the right upper lobe (table position -891.0). No pneumothorax or pleural effusion. Normal heart size. No pericardial effusion. Coronary artery calcifications. Normal caliber thoracic aorta and main pulmonary artery. No supraclavicular, axillary, hilar or mediastinal lymphadenopathy. Calcified lung granulomas and hilar lymph nodes, in keeping with old granulomatous disease. Images of the upper abdomen are unremarkable. No suspicious osseous lesions. Impression: 1. Mild smooth bronchial wall thickening in the lower lobes without consolidation, possibly reflecting bronchitis or sequela of aspiration. 2. Right upper lobe 3 mm pulmonary nodule, indeterminate but likely infectious or inflammatory in etiology given the patient's history. Consider follow-up CT chest in one year to document resolution if there are clinical risk factors. Dictated by: Poli Eagle MD PHD The radiology attending physician has personally reviewed this study, and had reviewed and/or edited this written report and agrees with it. * Plan of Care - Meg Julien RN - 11/21/2021 7:27 AM CDT Goals: Clinical Goals for the Shift: Monitor VS, labs, I&O's. Promote safety and rest Summary: * Plan of Care - Carolyn Berger RN - 11/20/2021 10:25 PM CDT Goals: Clinical Goals for the Shift: Monitor VS, labs, I&O's. Promote safety and rest Summary: Problem: Health Behavior: Goal: Understanding of discharge needs will improve Outcome: Progressing Problem: Activity: Goal: Mobility will [...] to fullest extent possible Outcome: Progressing Problem: Lack of Knowledge: Goal: Ability to state ways to decrease the risk of falls will improve Outcome: Progressing Problem: Safety: Goal: Will remain free from falls Outcome: Progressing Goal: Will remain free from injury from falls Outcome: Progressing Goal: Will remain free from falls and injury in home environment Outcome: Progressing * [facility] Note - Becky Nagel LCSW - 11/20/2021 6:20 PM CDT Images from the original note were not included. Patient Information: OT Eval and Treat Last 72 Hours OT Evaluation Row Name 11/17/21 3844 Chart Reviewed Yes -CH Session Type Evaluation - OT Received On 11/17/21 - Safe Environment Arm Band Checked;Chair Alarm placed and activated;Call Light within Reach;NotifiedRN;Patient found in Supine;Overbed Table within Reach pt left seated in recliner in NAD -CH Subjective Agreeable to Therapy -CH Family/Caregiver Present No -CH Occupational Therapy-Patient Goal pt was agreeable to OT stated short term goals -CH Precautions Fall risk -CH Type of Home House -CH Home Layout One level - Home Access -- less than 5 LIANA -CH Bathroom Shower/Tub Walk-in shower with threshold - Bathroom Equipment Grab bars in shower/tub;Shower chair - Home Mobility Equipment Wheeled walker - Additional Comments per pt report, pt with impaired short term memory possibly impacting accuracy of report -CH Level of [place] Independent with ADLs;Independent with ambulation;Needs assistance with homemaking functional mobility with ww - Lives With Daughter -CH Receives Help From Family night time nanny assist - Driving No - Vocational/Occupation -- not working - Fall within the last 6 months No -CH Prior Function Comments per pt report, pt with impaired short term memory possibly impacting accuracy of report -CH ADLS (WDL) X - Grooming: Where assessed Chair - Grooming: Level of assistance Maximum Assist min for task; total for balance - Grooming: Assistance with -- A for thoroughness - LE Dressing: Where assessed Edge of bed - LE Dressing: Level of assistance Dependent - Toileting: Where assessed Bedside Commode - Toileting: Level of assistance Maximum Assist - Toileting: Assistance with Posterior;Anterior;Perineal hygiene;Clothing management up;Clothing management down A of 2, one person to assist with balance, other to assist with hygiene - Toilet Transfer From -- recliner - Toilet Transfer Type To and from - Toilet Transfer to Standard bedside commode - Toilet Transfer Technique -- stand and step - Toilet Transfer: Equipment Hand hold - Toilet Transfers Moderate assistance - Toilet Transfers Comments A for force production, balance, weight shift, cues for safety - Pain Assessment No/denies pain - Overall Cognitive Status Impaired - Arousal/Alertness Alert;Appropriate responses to stimuli - Attention Span Controlled environment;Distractability;Difficulty dividing attention - Memory Decreased short term memory - Orientation Oriented to person;Oriented to place oriented to year, not month; oriented to presentation of PNA, but not why she returned after d/c from OSH - Following Commands Follows one step commands consistently - Safety Judgment Decreased awareness of need for safety - Awareness of Errors Decreased awareness of errors - Problem Solving Assistance required to implement solutions;Assistance required to generate solutions - Compliance/Behavior Easy to engage - Light Touch -- BUE -CH Fine Motor WFL -CH Serial Opposition WFL -CH RUE Grasp Gross grasp 4/5 -CH LUE Grasp Gross grasp 4/5 -CH Balance Yes -CH Static Sitting-Balance Support No upper extremity supported -CH Static Sitting-Sitting Surface Bed - Static Sitting-Level of Assistance Close supervision - Static Standing-Balance Support No upper extremity supported -CH Static Standing-Level of Assistance Moderate assistance - Bed Mobility From 1 Supine -CH Bed Mobility Type 1 To - Bed Mobility to 1 Short sit;Edge of bed - Level of Assistance 1 Moderate Assist - Bed Mobility Comments 1 A to manuever BLEs, elevate trunk, bring hips to EOB - Transfer Yes - Transfer From 1 Sit - Transfer Type 1 To and from - Transfer to 1 Stand - Technique 1 Stand to sit;Sit to stand - Transfer Device 1 No device - Transfer Level of Assistance 1 Moderate Assist - Trials/Comments 1 A for force production, balance, hip extension. Pt did not come to full stand, partial hip extension/stooped in standing - Transfer From 2 Bed -CH Transfer Type 2 To -CH Transfer to 2 Chair with arms - Technique 2 -- stand step - Transfer Device 2 Hand held assist - Transfer Level of Assistance 2 Moderate Assist - Trials/Comments 2 A for force production, balance, hip extension, weight shift - RUE Assessment X WFL unless noted -CH R Shoulder Flexion -- ~90 degrees - R Shoulder ABduction -- ~90 degrees -CH LUE Assessment X WFL unless noted - L Shoulder Flexion -- ~90 degrees - L Shoulder ABduction -- ~90 degrees - Comments Pt denied dizziness until last of 3 transfers, found to have significant drop in BP that improved with time/seated. -CH Putting on and taking off regular lower body clothing 1 -CH Bathing 2 -CH Toileting 2 -CH Putting on and taking off upper body clothing 3 -CH Personal Grooming 2 -CH Eating Meals 3 -CH Total Score (range 6-24) 13 -CH Score Interpretation 32.03 - Problem List Decreased upper extremity strength;Decreased cognition;Decreased endurance;Decreased safe judgment during ADL;Decreased balance;Decreased functional mobility;Decreased ADL independence;Decreased IADL independence;Decreased trunk control for functional activities - Plan If this is the last note, consider this the discharge summary;Plan of care initiated - OT Recommendation Fdc Facility - OT Frequency 2-3x/wk - Treatment/Interventions ADL/IADL retraining;Balance Training;Cognitive retraining;Bed mobility;Compensatory technique education;Endurance training;Equipment eval/education;Functional activity;Functional mobility training;Functional transfer training;Neuromuscular re- education;Parent/caregiver training and education;Positioning;Strengthening;Therapeutic activity;Therapeutic exercise;Transfer training;Upper extremity motor function/functional skills - OT - Next Appointment 11/20/21 - OT Evaluation Complete Yes - User North (r) = Recorded By, (t) = Taken By, (c) = Cosigned By Initials Name Effective Dates Lashell Murray, OT 03/14/19 - OT Treatment Row Name 11/20/21 1323 Session Type Treatment -NT OT Received On 11/20/21 - Safe Environment Arm Band Checked;Call Light within Reach;Notified RN;Patient found in Supine -NT Subjective Agreeable to Therapy - Family/Caregiver Present No -NT Precautions Fall risk -NT Precaution Comments PPE: gown, gloves, faceshield, mask -NT Pain Assessment 0-10 -NT Pain Score 0 - No pain -NT Balance Yes -NT Static Sitting-Balance Support No upper extremity supported;Feet supported -NT Static Sitting-Sitting Surface Bed -NT Static Sitting-Level of Assistance Close supervision -NT Static Sitting-Comment/# of Minutes for safety, SBA -NT Static Standing-Balance Support Bilateral upper extremity supported -NT Static Standing-Standing Surface Floor -NT Static Standing-Level of Assistance Moderate assistance;Minimum assistance -NT Static Standing-Comment/# of Minutes using WW, initially mod A, improves to min with time -NT ADLS (WDL) X -NT Grooming: Where assessed Chair -NT Grooming: Level of assistance Moderate Assist -NT Grooming: Assistance with Increased time to complete;Safety -NT Toileting: Where assessed Chair -NT Toileting: Level of assistance Maximum Assist -NT Toileting: Assistance with Clothing management up;Perineal hygiene;Clothing management down;Posterior;Anterior -NT Bed Mobility Yes -NT Bed Mobility From 1 Supine -NT Bed Mobility Type 1 To -NT Bed Mobility to 1 Edge of bed -NT Level of Assistance 1 Minimum Assist;Minimal verbal cues;Minimal tactile cues -NT Bed Mobility Comments 1 HOB elevated, assist for trunk management and scooting -NT Transfer Yes -NT Transfer From 1 Bed;Sit -NT Transfer Type 1 To and from -NT Transfer to 1 Stand -NT Technique 1 Sit to stand;Stand to sit -NT Transfer Device 1 Wheeled walker -NT Transfer Level of Assistance 1 Moderate Assist -NT Trials/Comments 1 assist for force production, increased time for full transition to standing -NT Transfer From 2 Bed -NT Transfer Type 2 To -NT Transfer to 2 Chair with arms -NT Technique 2 Stand pivot -NT Transfer Device 2 Wheeled walker -NT Transfer Level of Assistance 2 Moderate Assist -NT Trials/Comments 2 forward flexed posture, increased time to initiate steps -NT Arousal/Alertness Appropriate responses to stimuli;Alert -NT Attention Span Appears intact -NT Memory Decreased short term memory;Decreased recall of recent events -NT Current communication Appears Intact -NT Orientation Oriented to person;Oriented to place -NT Following Commands Follows one step commands with repetition -NT Safety Judgment Decreased awareness of need for safety -NT Awareness of Errors Assistance required to identify errors made;Decreased awareness of errors;Assistance required to correct errors made -NT Insight Decreased awareness of deficits -NT Problem Solving Assistance required to implement solutions;Assistance required to generate solutions;Assistance required to identify errors made -NT Compliance/Behavior Easy to engage -NT Activity Tolerance Comments yaneth: hard (toileting) -NT Comments Patient tolerated session fairly this date. Pt alert, follows commands with increased timeto progress OOB. Pt demonstrates improved sitting balance without support. Requires occasional cuesto correct posterior lean while eating snack. Pt continues to progress toward LTGs, with ongoing assist required d/t deconditioning. -NT Putting on and taking off regular lower body clothing 1 -NT Bathing 2 -NT Toileting 2 -NT Putting on and taking off upper body clothing 3 -NT Personal Grooming 2 -NT Eating Meals 3 -NT Total Score (range 6-24) 13 -NT Score Interpretation 32.03 -NT Problem List Decreased upper extremity range of motion;Decreased upper extremity strength;Decreasedsafe judgment during ADL;Decreased cognition;Decreased endurance;Decreased balance;Decreased functional mobility;Decreased ADL independence;Decreased IADL independence -NT Barriers to Discharge Current Mobility Status;Cognition;Decreased safety awareness -NT Barrier Comments fall risk -NT Plan Continue with current plan;If this is the last note, consider this the discharge summary -NT OT Recommendation Fdc Facility -NT OT Frequency 2-3x/wk -NT Treatment/Interventions ADL/IADL retraining;Balance Training;Bed mobility;Cognitive retraining;Compensatory technique education;Endurance training;Functional activity;Functional transfer training;Functional mobility training;Parent/caregiver training and education;Strengthening;Therapeutic activity;Therapeutic exercise;Transfer training -NT Progress Progressing toward goals -NT OT - Next Appointment 11/22/21 -NT OT - OK to Discharge No -NT User North (r) = Recorded By, (t) = Taken By, (c) = Cosigned By Initials Name Effective Dates NT Maliha Goldberg OT 02/20/21 - OT Notes 11/20/2021 4:41 PM Progress Notes signed by Maliha Goldberg OT , PT Eval and Treat Last 72 Hours PT Evaluation Row Name 11/17/21 1548 Chart Reviewed Yes -TW Session Type Evaluation -TW Safe Environment Arm Band Checked;Patient found sitting in Chair;Call Light within Reach;Bed Alarm placed and activated;Overbed Table within Reach -TW Subjective Agreeable to Therapy -TW Family/Caregiver Present No -TW Physical Therapy-Patient Goal Return home. -TW Precautions Fall risk -TW Precaution Comments PPE worn by PT: gloves, gown, surgical mask, faceshield. -TW Type of Home House -TW Home Layout One level -TW Home Access Level entry -TW Home Mobility Equipment Wheeled walker;Single point cane reports using her WW for all mobility at baseline -TW Additional Comments pt is a questionable historian at this time. -TW Level of [place] Independent with ADLs;Independent functional transfers;Independent with ambulation -TW Lives With Daughter -TW Receives Help From Family night time nanny assist available -TW Fall within the last 6 months No -TW Activity Tolerance Comments Yaneth: somewhat hard -TW Arousal/Alertness Alert;Appropriate responses to stimuli -TW Orientation Oriented to person;Oriented to place -TW Following Commands Follows one step commands without difficulty -TW Safety Judgment Decreased awareness of need for safety -TW Light Touch WFL BLEs distal to knees. -TW Sensation Comments Dry wound on posterior aspect of L heel, skin integrity intact for RLE, no edemanoted for BLEs distal to knees. -TW Balance Yes -TW Static Sitting-Balance Support Feet supported;No upper extremity supported -TW Static Sitting-Sitting Surface Bed -TW Static Sitting-Level of Assistance Close supervision -TW Static Sitting-Comment/# of Minutes sup for safety -TW Dynamic Sitting-Balance Support Feet supported;Bilateral upper extremity supported -TW Dynamic Sitting-Balance Lateral lean;Forward lean -TW Dynamic Sitting-Sitting Surface Bed -TW Dynamic Sitting-Level of Assistance Contact guard -TW Dynamic Sitting-Comments steadying assist -TW Static Standing-Balance Support Bilateral upper extremity supported WW -TW Static Standing-Standing Surface Floor -TW Static Standing-Level of Assistance Minimum assistance -TW Static Standing-Comment/# of Minutes steadying assist -TW Bed Mobility Yes -TW Bed Mobility From 1 Short sit;Edge of bed -TW Bed Mobility Type 1 To -TW Bed Mobility to 1 Supine -TW Level of Assistance 1 Minimum Assist -TW Transfer Yes -TW Transfer From 1 Sit -TW Transfer Type 1 To and from -TW Transfer to 1 Stand -TW Technique 1 Sit to stand;Stand to sit -TW Transfer Device 1 Wheeled walker -TW Transfer Level of Assistance 1 Moderate Assist -TW Trials/Comments 1 assist for force production. -TW Transfer From 2 Chair with arms -TW Transfer Type 2 To -TW Transfer to 2 Bed -TW Technique 2 Stand pivot -TW Transfer Device 2 No device -TW Transfer Level of Assistance 2 Moderate Assist -TW Trials/Comments 2 assist for force production and steadying. -TW Ambulation Yes -TW Distance (ft) 1 35 -TW Surface 1 Level tile -TW Device 1 Wheeled walker -TW Assistance 1 Minimum Assist -TW Gait: Requires assist with 1 Maintaining balance -TW Gait: Requires verbal cues to 1 Use assistive device safely;Improve upright posture;Increase step length;Pace activity -TW Quality of Gait 1 Decreased step length and lanny with a wide RENETTA with WW too far outside of her RENETTA with flexed trunk posture. -TW RLE Assessment WFL -TW LLE Assessment WFL -TW Equipment Use Comments Gait belt used for all OOB mobility. -TW How much difficulty does the patient have: Turning over in bed 3 -TW How much difficulty does the patient currently have: Sitting down and standing up from a chair witharms? 2 -TW How much difficulty does the patient have: Moving from lying on back to sitting on the side of the bed? 3 -TW How much difficulty does the patient have: Moving to and from a bed to a chair including wheelchair? 2 -TW How much help does the patient currently need: Walk in hospital room? 3 -TW How much help from another person does the patient currently need: Climbing 3-5 steps with a railing? 1 -TW Total 6 Click Score (range 6-24) 14 -TW Score Interpretation 35.55 -TW Prognosis Good -TW Problem List Gait deviations;Decreased strength;Decreased endurance;Impaired balance;Decreased mobility -TW Problem List Comments PT diagnosis: pt with worsening cough weakness with a history of T2DM, schizoaffective disorder, dementia (baseline AAOx2-3), HTN, depression presents with deficits and impairments as described above.These deficits prevent full participation in household mobility. -TW Plan Plan of care initiated;If this is the last note, consider this the discharge summary -TW PT Recommendation/Plan [facility] Facility -TW PT Frequency 2-3x/wk -TW Treatment/Interventions Balance Training;Bed mobility;Endurance training;Functional transfer training;Gait training;Strengthening;Therapeutic activity;Therapeutic exercise -TW PT Equipment Recommended None -TW PT Evaluation Complete Yes -TW User North (r) = Recorded By, (t) = Taken By, (c) = Cosigned By Initials Name Effective Dates TW Wan Vicente, PT 03/14/19 - PT TREATMENT (last 168 hours) PT Treatment Row Name 11/20/21 1446 PT Last Visit Session Type Treatment -SS Safe Environment Arm Band Checked;Overbed Table within Reach;Call Light within Reach;Patient found sitting in Chair;Chair Alarm placed and activated;Notified RN pt left in chair with all needs met -SS Subjective Agreeable to Therapy -SS Precautions Precautions Fall risk -SS Activity Tolerance Activity Tolerance Comments Yaneth: hard -SS Pain Assessment Pain Assessment No/denies pain -SS Cognition Arousal/Alertness Alert -SS Orientation Oriented to person;Oriented to place -SS Following Commands Follows one step commands with repetition -SS Balance Balance Yes -SS Static Sitting Balance Static Sitting-Balance Support Feet supported;No upper extremity supported -SS Static Sitting-Sitting Surface Chair -SS Static Sitting-Level of Assistance Close supervision -SS Static Sitting-Comment/# of Minutes safety -SS Static Standing Balance Static Standing-Balance Support Bilateral upper extremity supported WW -SS Static Standing-Standing Surface Floor -SS Static Standing-Level of Assistance Minimum assistance -SS Static Standing-Comment/# of Minutes assist for balance -SS Equipment Use Equipment Use Comments Gait belt used -SS Bed Mobility Bed Mobility No -SS Transfers Transfer Yes -SS Transfer 1 Transfer From 1 Sit -SS Transfer Type 1 To and from -SS Transfer to 1 Stand -SS Technique 1 Sit to stand;Stand to sit -SS Transfer Device 1 Wheeled walker -SS Transfer Level of Assistance 1 Moderate Assist -SS Trials/Comments 1 assist for force production, balance, hip extension. increased time allowed to perform task. completed 3 sit to stands -SS Ambulation Ambulation Yes -SS Ambulation 1 Distance (ft) 1 5 -SS Surface 1 Level tile -SS Device 1 Wheeled walker - Assistance 1 Moderate Assist -SS Gait: Requires assist with 1 Maintaining balance - Gait: Requires verbal cues to 1 Use assistive device safely;Improve upright posture;Increase step length;Pace activity - Quality of Gait 1 decreased lanny and step length, forward flexed posture, decreased hip extension -SS Ambulation Comments 1 pt reports feeling very fatigued and declined futher ambulation -SS Basic Mobility - 6 Click How much difficulty does the patient have: Turning over in bed 3 -SS How much difficulty does the patient currently have: Sitting down and standing up from a chair witharms? 2 -SS How much difficulty does the patient have: Moving from lying on back to sitting on the side of the bed? 3 -SS How much difficulty does the patient have: Moving to and from a bed to a chair including wheelchair? 2 -SS How much help does the patient currently need: Walk in hospital room? 2 -SS How much help from another person does the patient currently need: Climbing 3-5 steps with a railing? 1 -SS Total 6 Click Score (range 6-24) 13 -SS Score Interpretation 33.99 -SS Assessment Prognosis Good -SS Plan Plan Continue with current plan Per PT -SS Recommendation/Plan PT Recommendation/Plan Fdc Facility Per PT -SS PT Frequency 2-3x/wk Per PT -SS User North (r) = Recorded By, (t) = Taken By, (c) = Cosigned By Initials Name Effective Dates SS Darlyn Veloz PTA 02/05/21 - PT Notes Notes from 11/18/21 through 11/20/21 No notes of this type exist for this encounter. * Assessment & Plan Note - Reuben Dillon MD - 11/20/2021 3:13 PM CDT Associated Problem(s): Pulmonary nodule CT chest: Right upper lobe 3 mm pulmonary nodule, indeterminate but likely infectious or inflammatory in etiology given the patient's history. Follow-up CT chest in one year to document resolution. * Assessment & Plan Note - Reuben Dillon MD - 11/20/2021 3:13 PM CDT Associated Problem(s): Left leg DVT (HCC) (Resolved 11/10/2023) Recently diagnosed at OSH. Continue eliquis * Assessment & Plan Note - Reuben Dillon MD - 11/20/2021 3:13 PM CDT Associated Problem(s): Physical deconditioning Deconditioning 2/2 prolonged hospitalization. Daughter reports that prior to her illness, she was independent with a walker. - PT/OT recommends SNF. * Assessment & Plan Note - Reuben Dillon MD - 11/20/2021 3:13 PM CDT Associated Problem(s): Cough (Resolved 01/14/2022) Persistent cough which is actually getting worse [...] - RVP +Metapneumovirus - supportive care, improved. 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 Follows with outpatient nephrology. Baseline seems to be around 2-2.3. At baseline on admission. ProBNP 176 on admit. - Cut down lasix to 20 mg daily for volume status maintenance. Adjust as needed. * Assessment & Plan Note - Reuben Dillon MD - 11/20/2021 3:13 PM CDT Associated Problem(s): Schizoaffective disorder, bipolar type ([facility]) (HCC) Continue risperidal * Assessment & Plan Note - Reuben Dillon MD - 11/20/2021 3:13 PM CDT Associated Problem(s): Dementia ([facility]) (Deleted) Diagnosed 3 years ago. AOx3 at baseline. 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 Has short term memory issues. Continue supportive care. * Assessment & Plan Note - Reuben Dillon MD - 11/20/2021 3:13 PM CDT Associated Problem(s): Mixed hyperlipidemia Continue statin * Assessment & Plan Note - Reuben Dillon MD - 11/20/2021 3:13 PM CDT Associated Problem(s): Type 2 diabetes mellitus with diabetic neuropathy, with long-term current use of insulin (HCC) Home regimen includes lantus 25 units + Humalog 8 units with meals + SSI, trulicity. BG WNL on arrival. - Cut down lantus to 23 units with + 6 units mealtime + SSI, adjust as needed. - Continue lyrica for neuropathy - HbA1C 8.2 * Subjective & Objective - Reuben Dillon MD - 11/20/2021 3:09 PM CDT Daily Progress Note Division of Hospital Medicine Name: Barbara Chakraborty Today: November 20, 2021 : 1950 Age: 71 y.o. female Admit: 11/15/2021 Bed: [id number] Subjective Chief complaint: No new complaints, denies any CP or SOB. Interval History: -pend placement. Objective Medications: Scheduled: apixaban, 5 mg, oral, Q12H SOL atorvastatin, 40 mg, oral, Daily benzonatate, 100 mg, oral, TID carvediloL, 3.125 mg, oral, BID with meals (bkfst, dinner) famotidine, 20 mg, oral, Daily furosemide, 20 mg, oral, Daily guaiFENesin ER, 1,200 mg, oral, BID insulin glargine, 23 Units, subcutaneous, Nightly insulin lispro, 0-4 Units, subcutaneous, Nightly insulin lispro, 0-5 Units, subcutaneous, TID with meals insulin lispro, 6 Units, subcutaneous, TID with meals pregabalin, 150 mg, oral, Nightly risperiDONE, 2 mg, oral, Nightly sodium chloride 0.9%, 0.5-20 mL, intra-catheter, Q8H SOL Infusions: PRN: acetaminophen dextrose OR dextrose glucagon ondansetron ODT OR ondansetron polyethylene glycol ramelteon sodium chloride 0.9% Vitals: 24hr Min/Max: Temp Min: 36.5 ??C (97.7 ??F) Max: 36.8 ??C (98.2 ??F) Pulse Min: 70 Max: 75 BP Min: 101/59 Max: 127/51 Resp Min: 18 Max: 20 SpO2 Min: 94 % Max: 99 % Most Recent: Vitals: 11/20/21 1500 BP: (!) 110/42 Pulse: Resp: Temp: SpO2: Intake/Output Summary (Last 24 hours) at 11/20/2021 1509 Last data filed at 11/20/2021 0635 Gross per 24 hour Intake -- Output 600 ml Net -600 ml Physical Exam Gen: Comfortable in bed, NAD, on RA. HEENT: NCAT Heart: RRR Lungs: CTA, no rales. Abd: +BS, soft, NT Ext: moves all extremities; no edema Neuro: Alert and oriented to name, place and situation. Psych: Cam. Lab/Diagnostic Review: Recent Results (from the past 36 hour(s)) POCT glucose Collection Time: 11/19/21 8:13 AM Result Value Ref Range Glucose, POC 184 70 - 199 mg/dL POCT glucose Collection Time: 11/19/21 8:17 AM Result Value Ref Range Glucose, POC 176 70 - 199 mg/dL POCT glucose Collection Time: 11/19/21 11:46 AM Result Value Ref Range Glucose, POC 214 (H) 70 - 199 mg/dL POCT glucose Collection Time: 11/19/21 4:52 PM Result Value Ref Range Glucose, POC 143 70 - 199 mg/dL POCT glucose Collection Time: 11/19/21 9:06 PM Result Value Ref Range Glucose, POC 185 70 - 199 mg/dL POCT glucose Collection Time: 11/20/21 4:43 AM Result Value Ref Range Glucose, POC 158 70 - 199 mg/dL POCT glucose Collection Time: 11/20/21 7:24 AM Result Value Ref Range Glucose, POC 182 70 - 199 mg/dL POCT glucose Collection Time: 11/20/21 11:01 AM Result Value Ref Range Glucose, POC 222 (H) 70 - 199 mg/dL I have reviewed the laboratory results. Imaging Results: CT Chest WO Contrast Narrative: EXAMINATION: Computed tomography of the chest without intravenous contrast HISTORY: Worsening cough, recently treated pneumonia. TECHNIQUE: Transaxial computed tomographic images of the chest were obtained without intravenous contrast according to the standard protocol. COMPARISON: No direct comparison available. Chest radiograph 11/15/2021. FINDINGS: Patent central airways. There is mild smooth bronchial wall thickening in the lower lobes. Mild left greater than right bibasilar atelectasis without convincing consolidation. Left apical pleural-parenchymal scarring. There is a 3 mm nodule in the right upper lobe (table position -891.0). No pneumothorax or pleural effusion. Normal heart size. No pericardial effusion. Coronary artery calcifications. Normal caliber thoracic aorta and main pulmonary artery. No supraclavicular, axillary, hilar or mediastinal lymphadenopathy. Calcified lung granulomas and hilar lymph nodes, in keeping with old granulomatous disease. Images of the upper abdomen are unremarkable. No suspicious osseous lesions. Impression: 1. Mild smooth bronchial wall thickening in the lower lobes without consolidation, possibly reflecting bronchitis or sequela of aspiration. 2. Right upper lobe 3 mm pulmonary nodule, indeterminate but likely infectious or inflammatory in etiology given the patient's history. Consider follow-up CT chest in one year to document resolution if there are clinical risk factors. Dictated by: Poli Eagle MD PHD The radiology attending physician has personally reviewed this study, and had reviewed and/or edited this written report and agrees with it. * Plan of Care - Meg Julien RN - 11/20/2021 10:01 AM CDT Goals: Clinical Goals for the Shift: Monitor VS, I/O, Labs Summary: * Provider Query - Reuben Dillon MD - 11/20/2021 8:50 AM CDT Clinical Indicators/Treatments: Patient presented with weakness and cough. Admitted for the same. History includes type 2 DM with neuropathy, HTN, CKD 3 and dementia. 11/15 ED Note, Physical Exam: Stage 1 sacral decubitus ulcer. Left heel ulceration with no erythema,warmth, or drainage. 11/15 H&P: ...recently discharged from OSH yesterday after 2 week admission ...discharged home with daughter. Skin: warm and dry 11/16 Nursing flowsheet: Open wound Medial Coccyx, Evolving -Site Assessment Dry and Intact -Yenny-wound: blanchable -Foam dressing Open wound Left Heel, Evolving -Site Assessment: Clean, Dry and Intact -Yenny-wound: Dry and Intact 11/16 NN: Heel off loading boots in place. 11/19 Hospitalist PN: Skin: warm and dry Treatment/monitoring as above. POCT glucose and insulin. Specify the ulcer or wound and document in the medical record and on the form below. Location and Laterality of the ulcer or wound ___ Medial coccyx and left heel ___ Other ulcer site, specify below ___ No ulcer present Type or Etiology of ulcer or wound ___ Pressure (Decubitus) Ulcer ___ Diabetic Ulcer ___ Other, specify below ___ Clinically unable to determine Present on Admission ___ Yes ___ No ___ Clinically unable to determine Additional Provider Response: Clinically unable to determine, just assumed care on 11/19. Use of terms such as likely, suspected, possible, or probable (associated with a specific diagnosisthat is being evaluated, monitored, or treated as if it exists) are acceptable and can be coded in the inpatient setting when documented at the time of discharge. This documentation will become part of the patient???s medical record. * Provider Query - Reuben Dillon MD - 11/20/2021 8:48 AM CDT Clinical Indicators/Treatments: Patient presented with worsening cough and weakness. Admitted for the same. 11/15 H&P: ... recently discharged from [facility] yesterday after admission (2 weeks) for pneumonia. Cough Persistent cough which is actually getting worse... RSV/Flu/COVID negative...CXR with showed bibasilar atelectasis but no consolidations. - Could be obstruction or bronchitis or CONDUIT HELPER - Will plan for Chest CT - Will repeat full RVP - Plan for scheduled inhaler trial (6 doses) with scheduled mucinex + tessalon perles. - Hold off on further abx for now 11/19 PROGRAM TECHNICIAN Note: Given trials of thin liquid via cup and straw as well as puree and hard solid food. Pt without overt s/s aspiration. Slow mastication however functional. 11/19 Hospitalist PN: Cough - Chest CT: Mild smooth bronchial wall thickening in the lower lobes without consolidation, possibly reflecting bronchitis or sequela of aspiration. - RVP +Metapneumovirus - supportive care Treatment/monitoring: albuterol HFA, tessalon, Mucinex Specify the diagnosis, after study, that best reflects the clinical condition being monitored, evaluated, or treated. Document in the medical record and on the form below. ___ Acute bronchitis due to Metapneumovirus ___ Other, specify below __x_ Clinically unable to determine Additional Provider Response: Use of terms such as likely, suspected, possible, or probable (associated with a specific diagnosisthat is being evaluated, monitored, or treated as if it exists) are acceptable and can be coded in the inpatient setting when documented at the time of discharge. This documentation will become part of the patient???s medical record. * Plan of Care - Ana Maria Willis RN - 11/19/2021 1:29 PM CDT Goals: Clinical Goals for the Shift: Monitor VS, I/O, Labs Summary: AAOX2, to person and place. RA. No pain complaints. Turns and total cares provided--purwick in place, sometimes will request bed isidro. EPC applied to bottom. Awaiting SNF placement. No acute changes today. * Assessment & Plan Note - Reuben Dillon MD - 11/19/2021 12:28 PM CDT Associated Problem(s): Pulmonary nodule CT chest: Right upper lobe 3 mm pulmonary nodule, indeterminate but likely infectious or inflammatory in etiology given the patient's history. Follow-up CT chest in one year to document resolution. * Assessment & Plan Note - Reuben Dillon MD - 11/19/2021 12:28 PM CDT Associated Problem(s): Left leg DVT (HCC) (Resolved 11/10/2023) Recently diagnosed at OSH. Continue eliquis * Assessment & Plan Note - Reuben Dillon MD - 11/19/2021 12:28 PM CDT Associated Problem(s): Physical deconditioning Deconditioning 2/2 prolonged hospitalization. Daughter reports that prior to her illness, she was independent with a walker. - PT/OT recommends SNF. * Assessment & Plan Note - Reuben Dillon MD - 11/19/2021 12:28 PM CDT Associated Problem(s): Cough (Resolved 01/14/2022) Persistent cough which is actually getting worse [...] aspiration. 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 Follows with outpatient nephrology. Baseline seems to be around 2-2.3. At baseline on admission. ProBNP 176 on admit. - Cut down lasix to 20 mg daily for volume status maintenance. Adjust as needed. * Assessment & Plan Note - Reuben Dillon MD - 11/19/2021 12:28 PM CDT Associated Problem(s): Schizoaffective disorder, bipolar type (CMS/HCC) (HCC) Continue risperidal * Assessment & Plan Note - Reuben Dillon MD - 11/19/2021 12:27 PM CDT Associated Problem(s): Dementia (HCC) (Deleted) Diagnosed 3 years ago. AOx3 at baseline. Relatively preserved mcfp memory. Has short term memory issues. Continue supportive care. * Assessment & Plan Note - Reuben Dillon MD - 11/19/2021 12:27 PM CDT Associated Problem(s): Mixed hyperlipidemia Continue statin * Assessment & Plan Note - Reuben Dillon MD - 11/19/2021 12:27 PM CDT Associated Problem(s): Type 2 diabetes mellitus with diabetic neuropathy, with long-term current use of insulin (HCC) Home regimen includes lantus 25 units + Humalog 8 units with meals + SSI, trulicity. BG WNL on arrival. - Cut down lantus to 23 units with + 6 units mealtime + SSI, adjust as needed. - Continue lyrica for neuropathy - HbA1C 8.2 * Subjective & Objective - Reuben Dillon MD - 11/19/2021 12:23 PM CDT Daily Progress Note Division of Hospital Medicine Name: Barbara Chakraborty Today: November 19, 2021 : 1950 Age: 71 y.o. female Admit: 11/15/2021 Bed: [place] [address]/[place] [address] Subjective Chief complaint: Minimal cough, denies any SOB. Interval History: - Pend placement and dicussed in discharge rounds. Objective Medications: Scheduled: apixaban, 5 mg, oral, Q12H SOL atorvastatin, 40 mg, oral, Daily benzonatate, 100 mg, oral, TID carvediloL, 3.125 mg, oral, BID with meals (bkfst, dinner) famotidine, 20 mg, oral, Daily furosemide, 20 mg, oral, Daily guaiFENesin ER, 1,200 mg, oral, BID insulin glargine, 23 Units, subcutaneous, Nightly insulin lispro, 0-4 Units, subcutaneous, Nightly insulin lispro, 0-5 Units, subcutaneous, TID with meals insulin lispro, 6 Units, subcutaneous, TID with meals pregabalin, 150 mg, oral, Nightly risperiDONE, 2 mg, oral, Nightly sodium chloride 0.9%, 0.5-20 mL, intra-catheter, Q8H SOL Infusions: PRN: acetaminophen dextrose OR dextrose glucagon ondansetron ODT OR ondansetron polyethylene glycol ramelteon sodium chloride 0.9% Vitals: 24hr Min/Max: Temp Min: 36.6 ??C (97.9 ??F) Max: 36.8 ??C (98.2 ??F) Pulse Min: 71 Max: 76 BP Min: 112/50 Max: 172/58 Resp Min: 16 Max: 18 SpO2 Min: 98 % Max: 100 % Most Recent: Vitals: 11/19/21 0809 BP: 117/54 Pulse: 72 Resp: 16 Temp: 36.7 ??C (98.1 ??F) SpO2: 99% Intake/Output Summary (Last 24 hours) at 11/19/2021 1224 Last data filed at 11/19/2021 0550 Gross per 24 hour Intake 120 ml Output 2500 ml Net -2380 ml Physical Exam Gen: Comfortable in bed, NAD, on RA. HEENT: NCAT Heart: RRR Lungs: CTA, no rales. Abd: +BS, soft, NT Ext: moves all extremities; no edema Neuro: alert and oriented to name, place and situation. Psych: Pleasant. Skin: warm and dry Lab/Diagnostic Review: Recent Results (from the past 36 hour(s)) Basic metabolic panel Collection Time: 11/18/21 5:12 AM Result Value Ref Range Sodium 142 135 - 145 mmol/L Potassium, pl 5.0 (H) 3.3 - 4.9 mmol/L Chloride 107 97 - 110 mmol/L CO2 25 22 - 32 mmol/L Anion gap 10 2 - 15 mmol/L BUN 65 (H) 8 - 25 mg/dL Creatinine 2.00 (H) 0.60 - 1.10 mg/dL Glucose 172 70 - 199 mg/dL Calcium 9.6 8.5 - 10.3 mg/dL CBC with auto differential Collection Time: 11/18/21 5:12 AM Result Value Ref Range WBC 11.1 (H) 3.8 - 9.9 K/cumm Hgb 8.1 (L) 11.9 - 15.5 g/dL Hct 25.8 (L) 35.6 - 45.5 % Plt 371 150 - 400 K/cumm MPV 10.3 9.1 - 12.3 fL RBC 2.88 (L) 3.90 - 5.20 M/cumm MCV 89.6 81.3 - 96.4 fL MCH 28.1 27.1 - 33.3 pg MCHC 31.4 (L) 32.3 - 35.7 g/dL RDW CV 14.6 11.1 - 14.9 % RDW SD 48.0 35.7 - 48.1 fL NRBC abs 0.00 0.00 - 0.01 K/cumm Differential, auto Collection Time: 11/18/21 5:12 AM Result Value Ref Range Neutrophil abs 6.7 (H) 1.7 - 6.5 K/cumm Imm gran abs 0.1 0.0 - 0.1 K/cumm Lymphocyte abs 3.3 0.8 - 3.3 K/cumm Monocyte abs 0.7 0.2 - 0.8 K/cumm Eosinophil abs 0.3 0.0 - 0.5 K/cumm Basophil abs 0.1 0.0 - 0.1 K/cumm Neutrophil pct 60.6 % Imm gran pct 0.5 % Lymphocyte pct 29.3 % Monocyte pct 6.2 % Eosinophil pct 2.9 % Basophil pct 0.5 % eGFR Collection Time: 11/18/21 5:12 AM Result Value Ref Range eGFR 26 (L) 90 - 130 mL/min/1.73 m2 POCT glucose Collection Time: 11/18/21 7:54 AM Result Value Ref Range Glucose, POC 180 70 - 199 mg/dL Glucose comment 1 Glu2: RN/MD Notified POCT glucose Collection Time: 11/18/21 11:49 AM Result Value Ref Range Glucose, POC 145 70 - 199 mg/dL POCT glucose Collection Time: 11/18/21 4:53 PM Result Value Ref Range Glucose, POC 191 70 - 199 mg/dL Glucose comment 1 Glu2: RN/MD Notified POCT glucose Collection Time: 11/18/21 9:32 PM Result Value Ref Range Glucose, POC 210 (H) 70 - 199 mg/dL POCT glucose Collection Time: 11/19/21 8:13 AM Result Value Ref Range Glucose, POC 184 70 - 199 mg/dL POCT glucose Collection Time: 11/19/21 8:17 AM Result Value Ref Range Glucose, POC 176 70 - 199 mg/dL POCT glucose Collection Time: 11/19/21 11:46 AM Result Value Ref Range Glucose, POC 214 (H) 70 - 199 mg/dL I have reviewed the laboratory results. Imaging Results: CT Chest WO Contrast Narrative: EXAMINATION: Computed tomography of the chest without intravenous contrast HISTORY: Worsening cough, recently treated pneumonia. TECHNIQUE: Transaxial computed tomographic images of the chest were obtained without intravenous contrast according to the standard protocol. COMPARISON: No direct comparison available. Chest radiograph 11/15/2021. FINDINGS: Patent central airways. There is mild smooth bronchial wall thickening in the lower lobes. Mild left greater than right bibasilar atelectasis without convincing consolidation. Left apical pleural-parenchymal scarring. There is a 3 mm nodule in the right upper lobe (table position -891.0). No pneumothorax or pleural effusion. Normal heart size. No pericardial effusion. Coronary artery calcifications. Normal caliber thoracic aorta and main pulmonary artery. No supraclavicular, axillary, hilar or mediastinal lymphadenopathy. Calcified lung granulomas and hilar lymph nodes, in keeping with old granulomatous disease. Images of the upper abdomen are unremarkable. No suspicious osseous lesions. Impression: 1. Mild smooth bronchial wall thickening in the lower lobes without consolidation, possibly reflecting bronchitis or sequela of aspiration. 2. Right upper lobe 3 mm pulmonary nodule, indeterminate but likely infectious or inflammatory in etiology given the patient's history. Consider follow-up CT chest in one year to document resolution if there are clinical risk factors. Dictated by: Poli Eagle MD PHD The radiology attending physician has personally reviewed this study, and had reviewed and/or edited this written report and agrees with it. * Hospital Course - Reuben Dillon MD - 11/18/2021 11:48 AM CDT Pt 71 yo F with PMH of T2DM, schizoaffective disorder, dementia (baseline AAOx2- 3) who presents with worsening cough, weakness and placement. Physical deconditioning Deconditioning 2/2 prolonged hospitalization. Daughter reports that prior to her illness, she was independent with a walker. - PT/OT recommends SNF, Cough Cough has improved. Recently treated at [facility] for PNA with prolonged course of antibiotics: cefepime + vancomycin + azithromycin per daughter. RSV/Flu/COVID negative. CXR with showed bibasilar atelectasis but no consolidations. On room air. - Chest CT: Mild smooth bronchial wall thickening in the lower lobes without consolidation, possibly reflecting bronchitis or sequela of aspiration. - RVP +[place] pneumovirus, on supportive care. - supportive care, improved. - seen by speech therapy on 11/19, plan regular diet with thin liquids. Pulmonary nodule CT chest: Right upper lobe 3 mm pulmonary nodule, indeterminate but likely infectious or inflammatory in etiology given the patient's history. Follow-up CT chest in one year to document resolution. Left leg DVT Recently diagnosed at OSH. 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 Follows with outpatient nephrology. Baseline seems to be around 2-2.3. At baseline on admission. ProBNP 176 on admit. - Cut down lasix to 20 mg daily for volume status maintenance. Schizoaffective disorder, bipolar type Continue risperidal Dementia Diagnosed 3 years ago. AOx3 at baseline. Relatively preserved mcfp memory. Has short term memory issues. Continue supportive care. Hyperlipidemia associated with type 2 diabetes mellitus Continue statin Type 2 diabetes mellitus with diabetic neuropathy, with long-term current use of insulin Home regimen includes lantus 25 units + Humalog 8 units with meals + SSI, trulicity. BG WNL on arrival. - BS controlled with 23 units Lantus, 6 units Humalog with meals here. - Continue lyrica for neuropathy - HbA1C 8.2 * Assessment & Plan Note - Keesha Aguirre MD - 11/18/2021 11:30 AM CDT Associated Problem(s): Pulmonary nodule CT chest: Right upper lobe 3 mm pulmonary nodule, indeterminate but likely infectious or inflammatory in etiology given the patient's history. Follow-up CT chest in one year to document resolution. * Assessment & Plan Note - Keesha Aguirre MD - 11/18/2021 11:30 AM CDT Associated Problem(s): Left leg DVT (HCC) (Resolved 11/10/2023) Recently diagnosed at OSH. 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 Follows with outpatient nephrology. Baseline seems to be around 2-2.3. At baseline on admission. ProBNP 176 on admit. - Cut down lasix to 20 mg daily for volume status maintenance. Adjust as needed. * Assessment & Plan Note - Keesha Aguirre MD - 11/18/2021 11:30 AM CDT Associated Problem(s): Schizoaffective disorder, bipolar type (CMS/HCC) (HCC) Continue risperidal * Assessment & Plan Note - Keesha Aguirre MD - 11/18/2021 11:30 AM CDT Associated Problem(s): Dementia ([facility]) (Deleted) Diagnosed 3 years ago. AOx3 at baseline. 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 Has short term memory issues. Continue supportive care. * Assessment & Plan Note - Keesha Aguirre MD - 11/18/2021 11:29 AM CDT Associated Problem(s): Mixed hyperlipidemia Continue statin * Assessment & Plan Note - Keesha Aguirre MD - 11/18/2021 11:29 AM CDT Associated Problem(s): Type 2 diabetes mellitus with diabetic neuropathy, with long-term current use of insulin ([facility]) Home regimen includes lantus 25 units + Humalog 8 units with meals + SSI, trulicity. BG WNL on arrival. - Cut down lantus to 23 units with + 6 units mealtime + SSI, adjust as needed. - Continue lyrica for neuropathy - HbA1C 8.2 * Assessment & Plan Note - Keesha Aguirre MD - 11/18/2021 11:28 AM CDT Associated Problem(s): Cough (Resolved 01/14/2022) Persistent cough which is actually getting worse [...] aspiration. - RVP +Metapneumovirus - supportive care * Assessment & Plan Note - Keesha Aguirre MD - 11/18/2021 11:25 AM CDT Associated Problem(s): Physical deconditioning Deconditioning 2/2 prolonged hospitalization. Daughter reports that prior to her illness, she was independent with a walker. - PT/OT recommends SNF. * Subjective & Objective - Keesha Aguirre MD - 11/18/2021 11:14 AM CDT Daily Progress Note Division of Hospital Medicine Name: Barbara Chakraborty Today: November 18, 2021 : 1950 Age: 71 y.o. female Admit: 11/15/2021 Bed: [id number] Subjective Chief complaint: weakness Interval History: Cough has improved. Objective Medications: Scheduled: apixaban, 5 mg, oral, Q12H SOL atorvastatin, 40 mg, oral, Daily benzonatate, 100 mg, oral, TID carvediloL, 3.125 mg, oral, BID with meals (bkfst, dinner) famotidine, 20 mg, oral, Daily furosemide, 20 mg, oral, Daily guaiFENesin ER, 1,200 mg, oral, BID insulin glargine, 23 Units, subcutaneous, Nightly insulin lispro, 0-4 Units, subcutaneous, Nightly insulin lispro, 0-5 Units, subcutaneous, TID with meals insulin lispro, 0.05 Units/kg, subcutaneous, TID with meals pregabalin, 150 mg, oral, Nightly risperiDONE, 2 mg, oral, Nightly sodium chloride 0.9%, 0.5-20 mL, intra-catheter, Q8H SOL Infusions: PRN: acetaminophen dextrose OR dextrose glucagon ondansetron ODT OR ondansetron polyethylene glycol ramelteon sodium chloride 0.9% Vitals: 24hr Min/Max: Temp Min: 36.7 ??C Max: 37.1 ??C Pulse Min: 67 Max: 80 BP Min: 111/49 Max: 156/70 Resp Min: 16 Max: 18 SpO2 Min: 94 % Max: 100 % Most Recent: Vitals: 11/18/21 0754 BP: 111/49 Pulse: 67 Resp: 18 Temp: 37.1 ??C SpO2: 94% Intake/Output Summary (Last 24 hours) at 11/18/2021 1114 Last data filed at 11/18/2021 0510 Gross per 24 hour Intake 600 ml Output 600 ml Net 0 ml Physical Exam Gen: NAD HEENT: NCAT Heart: RRR Lungs: CTA Abd: +BS, soft, NT Ext: moves all extremities Neuro: just woke up and did not want to speak with me right now. In general, alert and oriented to name, place and situation. Speech is clear. 11/16 Jose at the waist when standing up from bed and needed 2 person support to transfer from bed to commode. Skin: warm and dry Lab/Diagnostic Review: Recent Results (from the past 24 hour(s)) POCT glucose Collection Time: 11/17/21 11:17 AM Result Value Ref Range Glucose, POC 229 (H) 70 - 199 mg/dL Glucose comment 1 Glu2: RN/ Notified POCT glucose Collection Time: 11/17/21 4:45 PM Result Value Ref Range Glucose, POC 202 (H) 70 - 199 mg/dL Glucose comment 1 Glu2: RN/ Notified POCT glucose Collection Time: 11/17/21 9:21 PM Result Value Ref Range Glucose, POC 234 (H) 70 - 199 mg/dL Basic metabolic panel Collection Time: 11/18/21 5:12 AM Result Value Ref Range Sodium 142 135 - 145 mmol/L Potassium, pl 5.0 (H) 3.3 - 4.9 mmol/L Chloride 107 97 - 110 mmol/L CO2 25 22 - 32 mmol/L Anion gap 10 2 - 15 mmol/L BUN 65 (H) 8 - 25 mg/dL Creatinine 2.00 (H) 0.60 - 1.10 mg/dL Glucose 172 70 - 199 mg/dL Calcium 9.6 8.5 - 10.3 mg/dL CBC with auto differential Collection Time: 11/18/21 5:12 AM Result Value Ref Range WBC 11.1 (H) 3.8 - 9.9 K/cumm Hgb 8.1 (L) 11.9 - 15.5 g/dL Hct 25.8 (L) 35.6 - 45.5 % Plt 371 150 - 400 K/cumm MPV 10.3 9.1 - 12.3 fL RBC 2.88 (L) 3.90 - 5.20 M/cumm MCV 89.6 81.3 - 96.4 fL MCH 28.1 27.1 - 33.3 pg MCHC 31.4 (L) 32.3 - 35.7 g/dL RDW CV 14.6 11.1 - 14.9 % RDW SD 48.0 35.7 - 48.1 fL NRBC abs 0.00 0.00 - 0.01 K/cumm Differential, auto Collection Time: 11/18/21 5:12 AM Result Value Ref Range Neutrophil abs 6.7 (H) 1.7 - 6.5 K/cumm Imm gran abs 0.1 0.0 - 0.1 K/cumm Lymphocyte abs 3.3 0.8 - 3.3 K/cumm Monocyte abs 0.7 0.2 - 0.8 K/cumm Eosinophil abs 0.3 0.0 - 0.5 K/cumm Basophil abs 0.1 0.0 - 0.1 K/cumm Neutrophil pct 60.6 % Imm gran pct 0.5 % Lymphocyte pct 29.3 % Monocyte pct 6.2 % Eosinophil pct 2.9 % Basophil pct 0.5 % eGFR Collection Time: 11/18/21 5:12 AM Result Value Ref Range eGFR 26 (L) 90 - 130 mL/min/1.73 m2 POCT glucose Collection Time: 11/18/21 7:54 AM Result Value Ref Range Glucose, POC 180 70 - 199 mg/dL Glucose comment 1 Glu2: RN/MD Notified I have reviewed the laboratory results. Assessment/Plan Code Status: Full Code Diet: Adult Diet Restricted; Consistent Carbohydrate * Plan of Care - Mackenzie Baptiste LCSW - 11/18/2021 9:49 AM CDT DISCHARGE PLANNING: Problem: Ensure acute medical needs are met and that patient has a safe discharge plan. Goal: Secure a facility that patient/family are agreeable with and ensure patient has continuum of care upon discharge. Social work was informed that MD would like social work to discuss discharge planning with patient/patient's family. Per chart, patient is A&Ox4, with garbled speech. Per PT note, patient stated she lives with her daughter Areli. Social work called patient's daughter Areli Gayle [phone] to obtain assessment informationand discuss discharge planning needs. Areli confirmed that the patient does live with her. Socialwork informed Areli that discharge recommendations indicate transfer to a senior living facility. Areli stated the patient has been in two senior living facilities ([facility]) since July. Areli stated she was not happy with the past two facilies the patient was in due to the facilities messing up the patient's medication and making her sicker . Areli stated she is agreeable to patient going to a senior living facility, but she wants to be involved in the facility choice. Social work stated she would emailed over a list of senior living facilities. Areli is agreeable. (email [email or web address]). Social work send email and stated floor social work would follow up tomorrow on facility decisions and send referrals. Social work will continue to follow for DC planning needs. AKASH Cobos, STEPHANIA For emergency needs from 4:31p.m. - 7:59a.m., please call the ED Straw Hat Brim Cutter Operator . For weekend needs from 8:00a.m. - 4:30p.m., please call the Weekend Social Work Staff . * Plan of Care - Juan Martinez RN - 11/17/2021 11:13 PM CDT Problem: Health Behavior: Goal: Understanding of discharge needs will improve Outcome: Progressing Problem: Activity: Goal: Mobility will [...] to fullest extent possible Outcome: Progressing Problem: Lack of Knowledge: Goal: Ability to state ways to decrease the risk of falls will improve Outcome: Progressing Problem: Safety: Goal: Will remain free from falls Outcome: Progressing Goal: Will remain free from injury from falls Outcome: Progressing Goal: Will remain free from falls and injury in home environment Outcome: Progressing Goals: Clinical Goals for the Shift: monitor vs, labs, i/o, pt safety and comfort, reorientation to new floor and transfer from 54[address] to [address]. Summary: Progressing toward goals. * Assessment & Plan Note - Keesha Aguirre MD - 11/17/2021 6:32 PM CDT Associated Problem(s): Pulmonary nodule CT chest: Right upper lobe 3 mm pulmonary nodule, indeterminate but likely infectious or inflammatory in etiology given the patient's history. Follow-up CT chest in one year to document resolution. * Assessment & Plan Note - Keesha Aguirre MD - 11/17/2021 6:32 PM CDT Associated Problem(s): Left leg DVT (HCC) (Resolved 11/10/2023) Recently diagnosed at OSH. 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 Follows with outpatient nephrology. Baseline seems to be around 2-2.3. At baseline on admission. ProBNP 176 on admit. - Cut down lasix to 20 mg daily for volume status maintenance. Adjust as needed. * Assessment & Plan Note - Keesha Aguirre MD - 11/17/2021 6:32 PM CDT Associated Problem(s): Schizoaffective disorder, bipolar type (CMS/HCC) (HCC) Continue risperidal * Assessment & Plan Note - Keesha Aguirre MD - 11/17/2021 6:31 PM CDT Associated Problem(s): Dementia (HCC) (Deleted) Diagnosed 3 years ago. AOx3 at baseline. Relatively preserved [facility] memory. Has short term memory issues. Continue supportive care. * Assessment & Plan Note - Keesha Aguirre MD - 11/17/2021 6:31 PM CDT Associated Problem(s): Mixed hyperlipidemia Continue statin * Assessment & Plan Note - Keesha Aguirre MD - 11/17/2021 6:30 PM CDT Associated Problem(s): Type 2 diabetes mellitus with diabetic neuropathy, with long-term current use of insulin (HCC) Home regimen includes lantus 25 units + Humalog 8 units with meals + SSI, trulicity. BG WNL on arrival. - Cut down lantus to 20 units with + 4 units mealtime + SSI, adjust as needed. - Continue lyrica for neuropathy - HbA1C 8.2 * Assessment & Plan Note - Keesha Aguirre MD - 11/17/2021 6:30 PM CDT Associated Problem(s): Cough (Resolved 01/14/2022) Persistent cough which is actually getting worse [...] aspiration. - RVP +Metapneumovirus - supportive care * Assessment & Plan Note - Keesha Aguirre MD - 11/17/2021 6:27 PM CDT Associated Problem(s): Physical deconditioning Deconditioning 2/2 prolonged hospitalization. Daughter reports that prior to her illness, she was independent with a walker. - PT/OT recommends SNF. - In observing pt getting out of bed, she became lightheaded with change of position and is needinga lot of help even with transferring from bed to bedside commode. Stooping at the waist when standing up and needed 2 person assist. * Subjective & Objective - Keesha Aguirre MD - 11/17/2021 6:23 PM CDT Daily Progress Note Division of Hospital Medicine Name: Barbara Chakraborty Today: November 17, 2021 : 1950 Age: 71 y.o. female Admit: 11/15/2021 Bed: [id number] Subjective Chief complaint: cough and weakness Interval History: pt reports feeling much better overall. PT/OT recommends SNF. Objective Medications: Scheduled: apixaban, 5 mg, oral, Q12H SOL atorvastatin, 40 mg, oral, Daily benzonatate, 100 mg, oral, TID carvediloL, 3.125 mg, oral, BID with meals (bkfst, dinner) famotidine, 20 mg, oral, Daily furosemide, 20 mg, oral, Daily guaiFENesin ER, 1,200 mg, oral, BID insulin glargine, 23 Units, subcutaneous, Nightly insulin lispro, 0-4 Units, subcutaneous, Nightly insulin lispro, 0-5 Units, subcutaneous, TID with meals insulin lispro, 0.05 Units/kg, subcutaneous, TID with meals pregabalin, 150 mg, oral, Nightly risperiDONE, 2 mg, oral, Nightly sodium chloride 0.9%, 0.5-20 mL, intra-catheter, Q8H SOL Infusions: PRN: acetaminophen dextrose OR dextrose glucagon ondansetron ODT OR ondansetron polyethylene glycol ramelteon sodium chloride 0.9% Vitals: 24hr Min/Max: Temp Min: 36.5 ??C Max: 37.5 ??C Pulse Min: 71 Max: 80 BP Min: 123/53 Max: 156/70 Resp Min: 16 Max: 16 SpO2 Min: 95 % Max: 100 % Most Recent: Vitals: 11/17/21 1607 BP: 150/65 Pulse: 80 Resp: Temp: SpO2: 99% Intake/Output Summary (Last 24 hours) at 11/17/2021 1823 Last data filed at 11/17/2021 1227 Gross per 24 hour Intake 500 ml Output 700 ml Net -200 ml Physical Exam Gen: NAD HEENT: NCAT Heart: RRR Lungs: CTA Abd: +BS, soft, NT Ext: moves all extremities; no edema Neuro: alert and oriented to name, place and situation. Speech is clear. Recognized me from yesterday Skin: warm and dry Lab/Diagnostic Review: Recent Results (from the past 24 hour(s)) POCT glucose Collection Time: 11/16/21 8:02 PM Result Value Ref Range Glucose, POC 184 70 - 199 mg/dL POCT glucose Collection Time: 11/17/21 7:31 AM Result Value Ref Range Glucose, POC 132 70 - 199 mg/dL POCT glucose Collection Time: 11/17/21 11:17 AM Result Value Ref Range Glucose, POC 229 (H) 70 - 199 mg/dL Glucose comment 1 Glu2: RN/MD Notified POCT glucose Collection Time: 11/17/21 4:45 PM Result Value Ref Range Glucose, POC 202 (H) 70 - 199 mg/dL Glucose comment 1 Glu2: RN/MD Notified I have reviewed the laboratory results. Assessment/Plan Code Status: Full Code Diet: Adult Diet Restricted; Consistent Carbohydrate * Plan of Pee - Tanika Sylvester RN - 11/17/2021 11:41 AM CDT Goals: Clinical Goals for the Shift: monitor vs, labs, i/o, pt safety and comfort, reorientation to new floor and transfer from [facility] [place] to [facility]. Summary: Problem: Nutritional: Goal: Dietary intake will improve Outcome: Progressing * Plan of Care - Wilner Reinoso RRT - 11/17/2021 5:52 AM CDT Pt is on room air. Pt given MDI Albuterol 2 puffs Q6 w/a . Pt tolerated fair with assistance . RCS to assess and treat. * Plan of Care - Juan Martinez RN - 11/17/2021 1:17 AM CDT Problem: Health Behavior: Goal: Understanding of discharge needs will improve Outcome: Progressing Problem: Activity: Goal: Mobility will [...] to fullest extent possible Outcome: Progressing Problem: Lack of Knowledge: Goal: Ability to state ways to decrease the risk of falls will improve Outcome: Progressing Problem: Safety: Goal: Will remain free from falls Outcome: Progressing Goal: Will remain free from injury from falls Outcome: Progressing Goal: Will remain free from falls and injury in home environment Outcome: Progressing Goals: Q2hr turns, I/O, pain control. Summary: Progressing toward goals. * Assessment & Plan Note - Keesha Aguirre MD - 11/16/2021 5:39 PM CDT Associated Problem(s): Pulmonary nodule CT chest: Right upper lobe 3 mm pulmonary nodule, indeterminate but likely infectious or inflammatory in etiology given the patient's history. Follow-up CT chest in one year to document resolution. * Subjective & Objective - Keesha Aguirre MD - 11/16/2021 5:13 PM CDT Daily Progress Note Division of Hospital Medicine Name: Barbara Chakraborty Today: November 16, 2021 : 1950 Age: 71 y.o. female Admit: 11/15/2021 Bed: [id number] Subjective Chief complaint: cough and weakness Interval History: no acute events. No significant cough noted. Ate most of her breakfast. Pt is getting lightheaded with change of position and is needing a lot of help even with transferring from bed to bedside commode. Objective Medications: Scheduled: albuterol HFA, 2 puff, inhalation, Q6H While awake (RT) apixaban, 5 mg, oral, Q12H SOL atorvastatin, 40 mg, oral, Daily benzonatate, 100 mg, oral, TID carvediloL, 3.125 mg, oral, BID with meals (bkfst, dinner) famotidine, 20 mg, oral, Daily furosemide, 20 mg, oral, Daily guaiFENesin ER, 1,200 mg, oral, BID insulin glargine, 20 Units, subcutaneous, Nightly insulin lispro, 0-4 Units, subcutaneous, Nightly insulin lispro, 0-5 Units, subcutaneous, TID with meals insulin lispro, 0.05 Units/kg, subcutaneous, TID with meals pregabalin, 150 mg, oral, Nightly risperiDONE, 2 mg, oral, Nightly sodium chloride 0.9%, 0.5-20 mL, intra-catheter, Q8H SOL Infusions: PRN: acetaminophen dextrose OR dextrose glucagon ondansetron ODT OR ondansetron polyethylene glycol ramelteon sodium chloride 0.9% Vitals: 24hr Min/Max: Temp Min: 36.3 ??C Max: 37.1 ??C Pulse Min: 73 Max: 86 BP Min: 117/43 Max: 146/78 Resp Min: 14 Max: 16 SpO2 Min: 95 % Max: 100 % Most Recent: Vitals: 11/16/21 1521 BP: (!) 117/43 Pulse: 80 Resp: 16 Temp: 37.1 ??C SpO2: 99% Intake/Output Summary (Last 24 hours) at 11/16/2021 1713 Last data filed at 11/15/2021 2200 Gross per 24 hour Intake 480 ml Output -- Net 480 ml Physical Exam Gen: NAD HEENT: NCAT Heart: RRR Lungs: CTA Abd: +BS, soft, NT Ext: moves all extremities; no edema Neuro: alert and oriented to name, place and situation. Speech is clear. Jose at the waist when standing up from bed and needed 2 person support to transfer from bed to commode. Skin: warm and dry Lab/Diagnostic Review: Recent Results (from the past 24 hour(s)) POCT glucose Collection Time: 11/15/21 5:19 PM Result Value Ref Range Glucose, POC 116 70 - 199 mg/dL POCT glucose Collection Time: 11/15/21 6:10 PM Result Value Ref Range Glucose, POC 113 70 - 199 mg/dL POCT glucose Collection Time: 11/15/21 8:26 PM Result Value Ref Range Glucose, POC 159 70 - 199 mg/dL Respiratory pathogen panel Nasopharyngeal Collection Time: 11/16/21 12:34 AM Specimen: Nasopharyngeal Result Value Ref Range Influenza A RNA Not Detected Not Detected Influenza B RNA Not Detected Not Detected RSV RNA Not Detected Not Detected COVID-19 RNA Not Detected Not Detected Coronavirus 229E RNA Not Detected Not Detected Coronavirus HKU1 RNA Not Detected Not Detected Coronavirus NL63 RNA Not Detected Not Detected Coronavirus OC43 RNA Not Detected Not Detected Adenovirus DNA Not Detected Not Detected Metapneumovirus RNA Detected (A) Not Detected Rhinovirus/Enterovirus RNA Not Detected Not Detected Parainfluenza 1 RNA Not Detected Not Detected Parainfluenza 2 RNA Not Detected Not Detected Parainfluenza 3 RNA Not Detected Not Detected Parainfluenza 4 RNA Not Detected Not Detected B. pertussis DNA Not Detected Not Detected B. parapertussis DNA Not Detected Not Detected C. pneumoniae DNA Not Detected Not Detected M. pneumoniae DNA Not Detected Not Detected POCT glucose Collection Time: 11/16/21 12:39 AM Result Value Ref Range Glucose, POC 231 (H) 70 - 199 mg/dL POCT glucose Collection Time: 11/16/21 7:35 AM Result Value Ref Range Glucose, POC 214 (H) 70 - 199 mg/dL POCT glucose Collection Time: 11/16/21 11:25 AM Result Value Ref Range Glucose, POC 260 (H) 70 - 199 mg/dL POCT glucose Collection Time: 11/16/21 4:33 PM Result Value Ref Range Glucose, POC 241 (H) 70 - 199 mg/dL I have reviewed the laboratory results. Imaging Results: CT Chest WO Contrast Narrative: EXAMINATION: Computed tomography of the chest without intravenous contrast HISTORY: Worsening cough, recently treated pneumonia. TECHNIQUE: Transaxial computed tomographic images of the chest were obtained without intravenous contrast according to the standard protocol. COMPARISON: No direct comparison available. Chest radiograph 11/15/2021. FINDINGS: Patent central airways. There is mild smooth bronchial wall thickening in the lower lobes. Mild left greater than right bibasilar atelectasis without convincing consolidation. Left apical pleural-parenchymal scarring. There is a 3 mm nodule in the right upper lobe (table position -891.0). No pneumothorax or pleural effusion. Normal heart size. No pericardial effusion. Coronary artery calcifications. Normal caliber thoracic aorta and main pulmonary artery. No supraclavicular, axillary, hilar or mediastinal lymphadenopathy. Calcified lung granulomas and hilar lymph nodes, in keeping with old granulomatous disease. Images of the upper abdomen are unremarkable. No suspicious osseous lesions. Impression: 1. Mild smooth bronchial wall thickening in the lower lobes without consolidation, possibly reflecting bronchitis or sequela of aspiration. 2. Right upper lobe 3 mm pulmonary nodule, indeterminate but likely infectious or inflammatory in etiology given the patient's history. Consider follow-up CT chest in one year to document resolution if there are clinical risk factors. Dictated by: Poli Eagle MD PHD The radiology attending physician has personally reviewed this study, and had reviewed and/or edited this written report and agrees with it. Electronically signed by: La Nena Jean MD Assessment/Plan Code Status: Full Code Diet: Adult Diet Restricted; Consistent Carbohydrate * Plan of Care - Ana Maria Willis RN - 11/16/2021 3:03 PM CDT Goals: Clinical Goals for the Shift: monitor vs, labs, i/o, pt safety and comfort, reorientation to new floor and transfer from 54[address] to [address]. Summary: AAOX4, sometimes forgetful d/t short term memory loss. Purwick in place, 1 BM today. Interdry and cream applied to abdominal fold d/t breakdown. Heel off loading boots in place. Total cares, but fall alarm in place d/t pt attempting to get up this morning. Heavy 2 pivot to BS. No changes today. Awaiting SNF placement. * Plan of Care - Melania Wesley RRT - 11/16/2021 11:50 AM CDT Patient is ordered Albuterol 2 puffs. Patient tolerated the medication well, continue med's as scheduled. * Plan of Care - Wesly Moya RN - 11/16/2021 3:05 AM CDT Problem: Health Behavior: Goal: Understanding of discharge needs will improve Outcome: Progressing Problem: Activity: Goal: Mobility will [...] to fullest extent possible Outcome: Progressing Problem: Lack of Knowledge: Goal: Ability to state ways to decrease the risk of falls will improve Outcome: Progressing Problem: Safety: Goal: Will remain free from falls Outcome: Progressing Goal: Will remain free from injury from falls Outcome: Progressing Goal: Will remain free from falls and injury in home environment Outcome: Progressing Goals: Clinical Goals for the Shift: monitor vs, labs, i/o, pt safety and comfort, reorientation to new floor and transfer from 54[address] to [address]. Summary: * Plan of Care - Kaitlin Ibrahim RN - 11/15/2021 6:01 PM CDT Problem: Health Behavior: Goal: Understanding of discharge needs will improve Outcome: Progressing * ED Re-evaluation Note - Hemalatha Bruce MD - 11/15/2021 2:56 PM CDT ED Re-evaluation TRANSITION OF CARE: I, Hemalatha Bruce MD, am taking signout from Laquita Carlisle MD (Resident) under supervision of Terrance Rocha MD (Attending). I have reviewed all pertinent vital signs, allergies,and history available in the chart. Summary: 71 y.o. female with PMH of T2DM, schizoaffective disorder, dementia (baseline AAOx2-3) whopresents with cough and leg pain. Recent discharge from OSH. Was recommended to go to a SNF and declined. Planning for admission for evaluation for placement. ?? Pending: N/A Dispo: Admitted to medicine ED Course as of 11/15/212049 Time: 11/15 0339 Value: Creatinine(!): 2.15 Comment: Cr 2.15 (b/l 1.7-2.0) By: Larry Mccall MD PhD Time: 11/15 0405 Value: Troponin I high-sensitivity series (baseline, 2hr, 4hr, 6hr): Trop I hs <4 Comment: Trop negative By: Larry Mccall MD PhD Time: 11/15 410 Value: XR Chest Pa Lateral 2 Vw Comment: CXR IMPRESSION: Comparison radiograph 09/06/2021. There is bibasilar atelectasis. No pleural effusion. Patient is leaning slightly to the left. No pneumothorax. The cardiac mediastinal silhouette is normal. By: Larry Mccall MD PhD Time: 11/16 515 Comment: Spoke with patient's daughter; she wants patient to be admitted for placement By: Larry Mccall MD PhD Hemalatha Bruce MD, [facility] Internal Medicine, PGY2 Hemalatha Bruce MD Resident 11/15/212049 * Assessment & Plan Note - Keesha Aguirre MD - 11/15/2021 10:28 AM CDT Associated Problem(s): Cough (Resolved 01/14/2022) Persistent cough which is actually getting worse [...] aspiration. - RVP +Metapneumovirus - supportive care * Assessment & Plan Note - Hussein Long MD - 11/15/2021 10:28 AM CDT Associated Problem(s): Dementia (HCC) (Deleted) Diagnosed 3 years ago. AOx3 at baseline. 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 Has short term memory issues. Continue supportive care. * Assessment & Plan Note - Keesha Aguirre MD - 11/15/2021 10:27 AM CDT Associated Problem(s): Physical deconditioning Deconditioning 2/2 prolonged hospitalization. Daughter reports that prior to her illness, she was independent with a walker. - PT/OT evals pending. - In observing pt getting out of bed, she became lightheaded with change of position and is needinga lot of help even with transferring from bed to bedside commode. Stooping at the waist when standing up and needed 2 person assist. 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 Follows with outpatient nephrology. Baseline seems to be around 2-2.3. At baseline on admission. ProBNP 176 on admit. - Cut down lasix to 20 mg daily for volume status maintenance. Adjust as needed. * Assessment & Plan Note - Hussein Long MD - 11/15/2021 8:17 AM CDT Associated Problem(s): Schizoaffective disorder, bipolar type (CMS/HCC) (HCC) Continue risperidal * Assessment & Plan Note - Keesha Aguirre MD - 11/15/2021 8:13 AM CDT Associated Problem(s): Type 2 diabetes mellitus with diabetic neuropathy, with long-term current use of insulin (HCC) Home regimen includes lantus 25 units + Humalog 8 units with meals + SSI, trulicity. BG WNL on arrival. - Cut down lantus to 20 units with + 4 units mealtime + SSI, adjust as needed. - Continue lyrica for neuropathy - HbA1C 8.2 * Assessment & Plan Note - Hussein Long MD - 11/15/2021 8:12 AM CDT Associated Problem(s): Mixed hyperlipidemia Continue statin * Assessment & Plan Note - Hussein Long MD - 11/15/2021 8:12 AM CDT Associated Problem(s): Left leg DVT (HCC) (Resolved 11/10/2023) Recently diagnosed at OSH. Continue eliquis * ED Re-evaluation Note - Indira Roque MD - 11/15/2021 7:16 AM CDT ED Re-evaluation ATTENDING TRANSITION OF CARE Indira Odell MD, am taking signout from Dr. Rivera (Attending). I have reviewed all pertinent vital signs allergies, and history available in the chart. Summary: 71 y.o. female Multiple admission to multiple hospitals, weakness, deconditioning failure to thrive. Pending: Dispo: admitted to medicine Indira Roque MD 11/15/21 0717 * ED Re-evaluation Note - Laquita Carlisle MD - 11/15/2021 7:13 AM CDT ED Re-evaluation TRANSITION OF CARE: Laquita Odell MD, am taking signout and assuming care of this patient. I have reviewedall pertinent vital signs, allergies, and history available in the chart. Summary: 71 y.o. female PMH of T2DM, schizoaffective disorder, dementia (baseline AAOx2-3) who presents with cough and leg pain. Discharged from OSH for pna and dvt yesterday. Plan for admission for placement. Pending: bed placement Dispo: admit to medicine ED Course as of 11/15/2114 Time: 11/15 338 Value: Creatinine(!): 2.15 Comment: Cr 2.15 (b/l 1.7-2.0) By: Larry Mccall MD PhD Time: 11/15 404 Value: Troponin I high-sensitivity series (baseline, 2hr, 4hr, 6hr): Trop I hs <4 Comment: Trop negative By: Larry Mccall MD PhD Time: 11/15 410 Value: XR Chest Pa Lateral 2 Vw Comment: CXR IMPRESSION: Comparison radiograph 09/06/2021. There is bibasilar atelectasis. No pleural effusion. Patient is leaning slightly to the left. No pneumothorax. The cardiac mediastinal silhouette is normal. By: Larry Mccall MD PhD Time: 11/16 515 Comment: Spoke with patient's daughter; she wants patient to be admitted for placement By: Larry Mccall MD PhD Final diagnoses: Cough Weakness Laquita Carlisle MD Resident 11/15/21 6373 * ED Procedure Note - Taras Rivera MD PhD - 11/15/2021 2:47 AM CDT Associated Order(s): ECG 12 lead Procedure ECG 12 lead Date/Time: 11/15/2021 2:47 AM Performed by: Taras Rivera MD PhD Authorized by: Larry Mccall MD PhD Comments: (02:38) sinus rhythm at 82 beats per minute; normal axis; normal intervals; no acute ST or T-wave abnormality. Normal EKG. Low risk ACS. Taras Rivera MD PhD 11/15/21 0247 documented in this encounter Plan of Treatment Upcoming Encounters Date Type Department Care Team (Latest Contact Info) Description 07/13/2024 9:00 AM CRM FUNCTIONAL ANALYST Hospital Encounter [facility] [address] [place] [id number] Jaya Grier MD [address] [place] [address] [address] GAINES [address] [place] [phone] 07/13/2024 9:00 AM CRM FUNCTIONAL ANALYST - 07/13/2024 9:30 AM CRM FUNCTIONAL ANALYST Surgery [facility] [address] [place] [id number] Jaay Grier MD [facility] [address] GAINES [address] [place] [id number] ESOPHAGOGASTRODUODENOSCOPY Scheduled Procedures Name Priority Associated Diagnoses Date/Ti me ESOPHAGOGASTRODUODENOSCOPY Anemia, unspecified type Gastritis without bleeding, unspecified chronicity, unspecified gastritis type 07/13/2024 9:00 AM CRM FUNCTIONAL ANALYST COLONOSCOPY Iron deficiency anemia due to chronic blood loss documented as of this encounter Procedures Procedure Name Priority Date/Time Associated Diagnosis Comments POCT GLUCOSE DEVICE Routine 11/26/2021 1 1:28 AM CDT POCT GLUCOSE DEVICE Routine 11/26/2021 7 :33 AM CDT EGFR Timed 11/25/2021 10:08 PM CDT CBC WITHOUT DIFFERENTIAL Timed 11/25/2021 10:08 PM CDT BASIC METABOLIC PANEL Timed 11/25/2021 10:08 PM CDT POCT GLUCOSE DEVICE Routine 11/25/2021 7 :59 PM CDT POCT GLUCOSE DEVICE Routine 11/25/2021 5 :16 PM CDT POCT GLUCOSE DEVICE Routine 11/25/2021 1 2:09 PM CDT POCT GLUCOSE DEVICE Routine 11/25/2021 8 :32 AM CDT POCT GLUCOSE DEVICE Routine 11/24/2021 8 :29 PM CDT POCT GLUCOSE DEVICE Routine 11/24/2021 4 :59 PM CDT POCT GLUCOSE DEVICE Routine 11/24/2021 3 :06 PM CDT POCT GLUCOSE DEVICE Routine 11/24/2021 1 1:28 AM CDT POCT GLUCOSE DEVICE Routine 11/24/2021 7 :18 AM CDT POCT GLUCOSE DEVICE Routine 11/23/2021 9 :16 PM CDT POCT GLUCOSE DEVICE Routine 11/23/2021 4 :57 PM CDT POCT GLUCOSE DEVICE Routine 11/23/2021 1 1:40 AM CDT POCT GLUCOSE DEVICE Routine 11/23/2021 7 :25 AM CDT POCT GLUCOSE DEVICE Routine 11/22/2021 7 :43 PM CDT POCT GLUCOSE DEVICE Routine 11/22/2021 4 :44 PM CDT POCT GLUCOSE DEVICE Routine 11/22/2021 1 1:01 AM CDT POCT GLUCOSE DEVICE Routine 11/22/2021 7 :28 AM CDT POCT GLUCOSE DEVICE Routine 11/21/2021 9 :42 PM CDT POCT GLUCOSE DEVICE Routine 11/21/2021 4 :46 PM CDT POCT GLUCOSE DEVICE Routine 11/21/2021 1 1:30 AM CDT POCT GLUCOSE DEVICE Routine 11/21/2021 7 :46 AM CDT POCT GLUCOSE DEVICE Routine 11/20/2021 1 1:37 PM CDT POCT GLUCOSE DEVICE Routine 11/20/2021 8 :06 PM CDT POCT GLUCOSE DEVICE Routine 11/20/2021 4 :45 PM CDT POCT GLUCOSE DEVICE Routine 11/20/2021 1 1:01 AM CDT POCT GLUCOSE DEVICE Routine 11/20/2021 7 :24 AM CDT POCT GLUCOSE DEVICE Routine 11/20/2021 4 :43 AM CDT POCT GLUCOSE DEVICE Routine 11/19/2021 9 :06 PM CDT POCT GLUCOSE DEVICE Routine 11/19/2021 4 :52 PM CDT POCT GLUCOSE DEVICE Routine 11/19/2021 1 1:46 AM CDT PROGRAM TECHNICIAN EVALUATE AND TREAT Routine 11/19/2021 10:40 AM CDT POCT GLUCOSE DEVICE Routine 11/19/2021 8 :17 AM CDT POCT GLUCOSE DEVICE Routine 11/19/2021 8 :13 AM CDT POCT GLUCOSE DEVICE Routine 11/18/2021 9 :32 PM CDT POCT GLUCOSE DEVICE Routine 11/18/2021 4 :53 PM CDT POCT GLUCOSE DEVICE Routine 11/18/2021 1 1:49 AM CDT POCT GLUCOSE DEVICE Routine 11/18/2021 7 :54 AM CDT EGFR Routine 11/18/2021 5:12 AM CDT DIFFERENTIAL AUTO Routine 11/18/2021 5:1 2 AM CDT CBC WITH AUTO DIFFERENTIAL Routine 11/18/2021 5:12 AM CDT BASIC METABOLIC PANEL Routine 11/18/2021 5:12 AM CDT POCT GLUCOSE DEVICE Routine 11/17/2021 9 :21 PM CDT POCT GLUCOSE DEVICE Routine 11/17/2021 4 :45 PM CDT POCT GLUCOSE DEVICE Routine 11/17/2021 1 1:17 AM CDT POCT GLUCOSE DEVICE Routine 11/17/2021 7 :31 AM CDT POCT GLUCOSE DEVICE Routine 11/16/2021 8 :02 PM CDT POCT GLUCOSE DEVICE Routine 11/16/2021 4 :33 PM CDT POCT GLUCOSE DEVICE Routine 11/16/2021 1 1:25 AM CDT POCT GLUCOSE DEVICE Routine 11/16/2021 7 :[address] CHEST WO CONTRAST IP Routine 11/16/2021 1:07 AM CDT POCT GLUCOSE DEVICE Routine 11/16/2021 1 2:39 AM CDT RESPIRATORY PATHOGEN PANEL Routine 11/16/2021 12:34 AM CDT POCT GLUCOSE DEVICE Routine 11/15/2021 8 :26 PM CDT POCT GLUCOSE DEVICE Routine 11/15/2021 6 :10 PM CDT POCT GLUCOSE DEVICE Routine 11/15/2021 5 :19 PM CDT POCT GLUCOSE DEVICE Routine 11/15/2021 1 0:52 AM CDT POCT GLUCOSE DEVICE Routine 11/15/2021 6 :58 AM CDT COVID-19 CORONAVIRUS RNA Routine 11/15/2021 5:31 AM CDT TROPONIN I HIGH-SENSITIVITY 2-HOUR Timed 11/15/2021 4:45 AM CDT XR CHEST PA LATERAL 2 VIEWS ED 11/15/2021 3:29 AM CDT TROPONIN I HIGH-SENSITIVITY SERIES (BASELINE, 2HR, 4HR, 6HR) STAT 11/15/2021 3:01 AM CDT ECG 12-LEAD STAT 11/15/2021 2:47 AM CDT EGFR STAT 11/15/2021 2:43 AM CDT DIFFERENTIAL AUTO STAT 11/15/2021 2:4 3 AM CDT PRO B-TYPE NATRIURETIC PEPTIDE STAT 11/15/2021 2:43 AM CDT CBC WITH AUTO DIFFERENTIAL STAT 11/15/2021 2:43 AM CDT HEMOGLOBIN A1C STAT 11/15/2021 2:43 AM CDT COMPREHENSIVE METABOLIC PANEL STAT 11/15/2021 2:43 AM CDT POCT GLUCOSE DEVICE Routine 11/14/2021 1 1:12 PM CDT documented in this encounter Results * POCT glucose (11/26/2021 11:28 AM CDT) Pathologist [facility] Glucose, POC 165 70 - 199 mg/dL [facility] Blood 11/26/2021 11:2 8 AM CDT 11/26/2021 11:28 AM CDT Weston Sher MD LAB POCT ORDERABLES - DEVICE Fi nal Result Performing Organization Address [facility]/ZIP Co de Phone Number [facility] [place] [address] * POCT glucose (11/26/2021 7:33 AM CDT) [facility] Glucose, POC 108 70 - 199 mg/dL [facility] Blood 11/26/2021 7:33 AM CDT 11/26/2021 7:33 AM CDT Weston Sher MD LAB POCT ORDERABLES - DEVICE Fi nal Result Performing Organization Address [facility] Co de Phone Number [facility] [place] [address] * (ABNORMAL) eGFR (11/25/2021 10:08 PM CDT) Pathologist [facility] eGFR 29(L) 90 - 130 mL/min/1. 73 m2 [facility] Comment: Interpretive Data Reference Interval [...] interpretive data was last reviewed 2021. Blood 11/25/2021 10:0 8 PM CDT 11/25/2021 11:26 PM CDT us Reuben Dillon MD LAB BLOOD ORDERABLES Final Result [facility] Department [place] [address] * (ABNORMAL) CBC without differential (11/25/2021 10:08 PM CDT) [facility] WBC 10.2(H) 3.8 - 9.9 K/cumm [facility] Hgb 7.9(L) 11.9 - 15.5 g/dL [facility] Hct 24.9(L) 35.6 - 45.5 % [facility] Plt 323 150 - 400 K/cumm [facility] MPV 11.1 9.1 - 12.3 fL [facility] RBC 2.79(L) 3.90 - 5.20 M/cumm [facility] MCV 89.2 81.3 - 96.4 fL [facility] MCH 28.3 27.1 - 33.3 pg [facility] MCHC 31.7(L) 32.3 - 35.7 g/dL [facility] RDW CV 14.9 11.1 - 14.9 % [facility] RDW SD 48.8(H) 35.7 - 48.1 fL [facility] NRBC abs 0.00 0.00 - 0.01 K/cumm [facility] Blood 11/25/2021 10:0 8 PM CDT 11/25/2021 10:54 PM CDT Reuben Dillon MD LAB BLOOD ORDERABLES Final Result [facility] Department [place] [address] * (ABNORMAL) Basic metabolic panel (11/25/2021 10:08 PM CDT) Pathologist [facility] Sodium 141 135 - 145 mmol/L [facility] Potassium, pl 4.1 3.3 - 4.9 mmol/L [facility] Chloride 112(H) 97 - 110 mmol/L [facility] CO2 21(L) 22 - 32 mmol/L [facility] Anion gap 8 2 - 15 mmol/L [facility] BUN 63(H) 8 - 25 mg/dL [facility] Creatinine 1.82(H) 0.60 - 1.10 mg/dL [facility] Glucose 135 70 - 199 mg/dL [facility] Comment: Interpretive Data Fasting glucose [...] interpretive data was last revised 2017. Calcium 9.2 8.5 - 10.3 mg/dL [facility] Blood 11/25/2021 10:0 8 PM CDT 11/25/2021 10:50 PM CDT Reuben Dillon MD LAB BLOOD ORDERABLES Final Result Performing Organization Address City/[facility] Co de Phone Number [facility] [place] [address] * POCT glucose (11/25/2021 7:59 PM CDT) Glucose, POC 179 70 - 199 mg/dL [facility] Blood 11/25/2021 7:59 PM CDT 11/25/2021 7:59 PM CDT Reuben Dillon MD LAB POCT ORDERABLES - DEVIC E Final Result Performing Organization Address City/[facility] Co de Phone Number [facility] [place] [address] * (ABNORMAL) POCT glucose (11/25/2021 5:16 PM CDT) Glucose, POC 212(H) 70 - 199 mg/dL [facility] Blood 11/25/2021 5:16 PM CDT 11/25/2021 5:16 PM CDT Reuben Dillon MD LAB POCT ORDERABLES - DEVIC E Final Result Performing Organization Address City/[facility] Co de Phone Number [facility] [place] [address] * (ABNORMAL) POCT glucose (11/25/2021 12:09 PM CDT) Glucose, POC 224(H) 70 - 199 mg/dL [facility] Blood 11/25/2021 12:0 9 PM CDT 11/25/2021 12:09 PM CDT Reuben Dillon MD LAB POCT ORDERABLES - DEVIC E Final Result Performing Organization Address [facility] Co de Phone Number [facility] [place] [address] * POCT glucose (11/25/2021 8:32 AM CDT) Glucose, POC 140 70 - 199 mg/dL [facility] Blood 11/25/2021 8:32 AM CDT 11/25/2021 8:32 AM CDT us Reuben Dillon MD LAB POCT ORDERABLES - DEVIC E Final Result Performing Organization Address [facility] de Phone Number [facility] [place] [address] * POCT glucose (11/24/2021 8:29 PM CDT) Glucose, POC 168 70 - 199 mg/dL [facility] Blood 11/24/2021 8:29 PM CDT 11/24/2021 8:29 PM CDT us Reuben Dillon MD LAB POCT ORDERABLES - DEVIC E Final Result Performing Organization Address [facility] de Phone Number [facility] [place] [address] * POCT glucose (11/24/2021 4:59 PM CDT) Glucose, POC 104 70 - 199 mg/dL [facility] Blood 11/24/2021 4:59 PM CDT 11/24/2021 4:59 PM CDT Reuben Dillon MD LAB POCT ORDERABLES - DEVIC E Final Result Performing Organization Address [facility] de Phone Number [facility] [place] [address] * POCT glucose (11/24/2021 3:06 PM CDT) Glucose, POC 125 70 - 199 mg/dL [facility] Blood 11/24/2021 3:06 PM CDT 11/24/2021 3:06 PM CDT Reuben Dillon MD LAB POCT ORDERABLES - DEVIC E Final Result Performing Organization Address [facility] de Phone Number [facility] [place] [address] * (ABNORMAL) POCT glucose (11/24/2021 11:28 AM CDT) Glucose, POC 226(H) 70 - 199 mg/dL [facility] Blood 11/24/2021 11:2 8 AM CDT 11/24/2021 11:28 AM CDT Reuben Dillon MD LAB POCT ORDERABLES - DEVIC E Final Result Performing Organization Address [facility] de Phone Number [facility] [place] [address] * POCT glucose (11/24/2021 7:18 AM CDT) Glucose, POC 187 70 - 199 mg/dL [facility] Blood 11/24/2021 7:18 AM CDT 11/24/2021 7:18 AM CDT Reuben Dillon MD LAB POCT ORDERABLES - DEVIC E Final Result Performing Organization Address City/[facility] Co de Phone Number [facility] [place] [address] * (ABNORMAL) POCT glucose (11/23/2021 9:16 PM CDT) Glucose, POC 203(H) 70 - 199 mg/dL [facility] Blood 11/23/2021 9:16 PM CDT 11/23/2021 9:16 PM CDT us Reuben Dillon MD LAB POCT ORDERABLES - DEVIC E Final Result Performing Organization Address [facility] [place] [address] * POCT glucose (11/23/2021 4:57 PM CDT) Glucose, POC 192 70 - 199 mg/dL [facility] Glucose comment 1 Glu2: RN/MD Notified [facility] Blood 11/23/2021 4:57 PM CDT 11/23/2021 4:57 PM CDT us Reuben Dillon MD LAB POCT ORDERABLES - DEVIC E Final Result Performing Organization Address [facility] Co de Phone Number [facility] [place] [address] * POCT glucose (11/23/2021 11:40 AM CDT) Glucose, POC 169 70 - 199 mg/dL [facility] Blood 11/23/2021 11:4 0 AM CDT 11/23/2021 11:40 AM CDT us Reuben Dillon MD LAB POCT ORDERABLES - DEVIC E Final Result Performing Organization Address City/[facility] Co de Phone [place] [address] * POCT glucose (11/23/2021 7:25 AM CDT) Glucose, POC 131 70 - 199 mg/dL [facility] Blood 11/23/2021 7:25 AM CDT 11/23/2021 7:25 AM CDT us Reuben Dillon MD LAB POCT ORDERABLES - DEVIC E Final Result Performing Organization Address City/[facility]/[place] [address] * POCT glucose (11/22/2021 7:43 PM CDT) Glucose, POC 115 70 - 199 mg/dL [facility] Blood 11/22/2021 7:43 PM CDT 11/22/2021 7:43 PM CDT us Reuben Dillon MD LAB POCT ORDERABLES - DEVIC E Final Result Performing Organization Address City/[facility] [place] [address] * POCT glucose (11/22/2021 4:44 PM CDT) Glucose, POC 147 70 - 199 mg/dL [facility] Blood 11/22/2021 4:44 PM CDT 11/22/2021 4:44 PM CDT us Reuben Dillon MD LAB POCT ORDERABLES - [place] [address] * (ABNORMAL) POCT glucose (11/22/2021 11:01 AM CDT) Glucose, POC 214(H) 70 - 199 mg/dL [facility] Blood 11/22/2021 11:0 1 AM CDT 11/22/2021 11:01 AM CDT Reuben Dillon MD LAB POCT ORDERABLES - DEVIC E Final Result Performing Organization Address City/[facility] Co de Phone Number [facility] [place] [address] * POCT glucose (11/22/2021 7:28 AM CDT) Glucose, POC 156 70 - 199 mg/dL [facility] Blood 11/22/2021 7:28 AM CDT 11/22/2021 7:28 AM CDT Reuben Dillon MD LAB POCT ORDERABLES - DEVIC E Final Result Performing Organization Address [facility] de Phone Number [facility] [place] [address] * (ABNORMAL) POCT glucose (11/21/2021 9:42 PM CDT) Glucose, POC 210(H) 70 - 199 mg/dL [facility] Blood 11/21/2021 9:42 PM CDT 11/21/2021 9:42 PM CDT Reuben Dillon MD LAB POCT ORDERABLES - DEVIC E Final Result Performing Organization Address City/[facility] Co de Phone Number [facility] [place] [address] * POCT glucose (11/21/2021 4:46 PM CDT) Glucose, POC 180 70 - 199 mg/dL [facility] Blood 11/21/2021 4:46 PM CDT 11/21/2021 4:46 PM CDT Reuben Dillon MD LAB POCT ORDERABLES - DEVIC E Final Result Performing Organization Address [facility] Co de Phone Number [facility] [place] [address] * POCT glucose (11/21/2021 11:30 AM CDT) Glucose, POC 160 70 - 199 mg/dL [facility] Blood 11/21/2021 11:3 0 AM CDT 11/21/2021 11:30 AM CDT Reuben Dillon MD LAB POCT ORDERABLES - DEVIC E Final Result Performing Organization Address [facility] de Phone Number [facility] [place] [address] * POCT glucose (11/21/2021 7:46 AM CDT) Glucose, POC 128 70 - 199 mg/dL [facility] Blood 11/21/2021 7:46 AM CDT 11/21/2021 7:46 AM CDT Reuben Dillon MD LAB POCT ORDERABLES - DEVIC E Final Result Performing Organization Address City/[facility] Co de Phone Number [facility] [place] [address] * POCT glucose (11/20/2021 11:37 PM CDT) Glucose, POC 142 70 - 199 mg/dL [facility] Blood 11/20/2021 11:3 7 PM CDT 11/20/2021 11:37 PM CDT Reuben Dillon MD LAB POCT ORDERABLES - DEVIC E Final Result Performing Organization Address [facility] Co de Phone Number [facility] [place] [address] * POCT glucose (11/20/2021 8:06 PM CDT) Glucose, POC 98 70 - 199 mg/dL [facility] Blood 11/20/2021 8:06 PM CDT 11/20/2021 8:06 PM CDT Reuben Dillon MD LAB POCT ORDERABLES - DEVIC E Final Result Performing Organization Address [facility] de Phone Number [facility] [place] [address] * POCT glucose (11/20/2021 4:45 PM CDT) Glucose, POC 113 70 - 199 mg/dL [facility] Blood 11/20/2021 4:45 PM CDT 11/20/2021 4:45 PM CDT us Reuben Dillon MD LAB POCT ORDERABLES - DEVIC E Final Result Performing Organization Address [facility] de Phone Number [facility] [place] [address] * (ABNORMAL) POCT glucose (11/20/2021 11:01 AM CDT) Glucose, POC 222(H) 70 - 199 mg/dL [facility] Blood 11/20/2021 11:0 1 AM CDT 11/20/2021 11:01 AM CDT Reuben Dillon MD LAB POCT ORDERABLES - DEVIC E Final Result [facility] [place] [address] * POCT glucose (11/20/2021 7:24 AM CDT) Glucose, POC 182 70 - 199 mg/dL [facility] Blood 11/20/2021 7:24 AM CDT 11/20/2021 7:24 AM CDT us Reuben Dillon MD LAB POCT ORDERABLES - DEVIC E Final Result Performing Organization Address City/[facility] [place] [address] * POCT glucose (11/20/2021 4:43 AM CDT) Glucose, POC 158 70 - 199 mg/dL [facility] Blood 11/20/2021 4:43 AM CDT 11/20/2021 4:43 AM CDT us Reuben Dillon MD LAB POCT ORDERABLES - DEVIC E Final Result Performing Organization Address City/[facility]/ZIP Co de Phone Number [facility] [place] [address] * POCT glucose (11/19/2021 9:06 PM CDT) Glucose, POC 185 70 - 199 mg/dL [facility] Blood 11/19/2021 9:06 PM CDT 11/19/2021 9:06 PM CDT us Reuben Dillon MD LAB POCT ORDERABLES - DEVIC E Final Result [facility] [place] [address] * POCT glucose (11/19/2021 4:52 PM CDT) Glucose, POC 143 70 - 199 mg/dL [facility] Blood 11/19/2021 4:52 PM CDT 11/19/2021 4:52 PM CDT Reuben Dillon MD LAB POCT ORDERABLES - DEVIC E Final Result Performing Organization Address [facility] de Phone Number [facility] Department [place] [address] * (ABNORMAL) POCT glucose (11/19/2021 11:46 AM CDT) Glucose, POC 214(H) 70 - 199 mg/dL [facility] Blood 11/19/2021 11:4 6 AM CDT 11/19/2021 11:46 AM CDT Reuben Dillon MD LAB POCT ORDERABLES - DEVIC E Final Result Performing Organization Address [facility] de Phone Number [facility] Department [place] [address] * PROGRAM TECHNICIAN Evaluation and Treatment (11/19/2021 10:40 AM CDT) Narrative Kita Casas, PROGRAM TECHNICIAN - 11/19/2021 10:40 AM CDT Kita Casas, PROGRAM TECHNICIAN ? 11/19/2021 ??1:42 PM Speech-Language Pathology: Clinical Bedside Swallow [facility] [place] 71-year-old female with history of schizoaffective disorder, diabetes, hypertension, CKD 3B, hyperlipidemia, dementia who was brought to ED with cough and generalized weakness. dementia diagnosis 3 years ago Dc from OSH 11/14 for pna and LLE DVT, had cough prolonged, non productive- rsv, flu and covid negative at [facility] Imaging:CT chest 11/16- mild smooth bronchial wall thickening in the lower lobes without consolidation, possibly reflective bronchitis or sequela of aspiration Precautions: fall PLOF: per daughter, independent with walker prior to admit, urinary and stool incontinence at baseline Current Diet Order: regular diet/thin liquids Baseline Feeding Status: regular diet/thin liquids General Information Barbara Chakraborty 11/19/21 General Observations: Adequate voicing, pleasant and cooperative, mild confusion noted in conversation, following commands. Denies baseline difficulty swallowing. Adequate oral motor movement. Pain Score: 0 - No pain If pain >4, was RN notified? No Patient Stated Goal/Comments: none Clinical Impression & Professional Recommendations Diet Solids Recommendation: Regular Diet Liquids Recommendations: Thin/regular Recommended Form of Medications: As tolerated Compensatory Strategies/Modifications: Slow rate Postural Recommendations: Upright 90 degrees Assistance with feeding/swallowing: Intermittent supervision Specialty Instructions: none Dysphagia Diagnosis: Within Functional Limits Overall Clinical Impression/Additional Information: Given trials of thin liquid via cup and straw as well as puree and hard solid food. Pt without overt s/s aspiration. Slow mastication however functional. Assessment Details & Results Consistencies Administered: Thin liquids, Purees, Solids EAT-10: O-HAT: MASA: Harris Assessment of Swallowing Ability (MASA) Alertness: Alert Cooperation: Cooperative Auditory Comprehension: Follows ordinary conversation with little difficulty Respiration: Chest clear Respiratory Rate (for swallow): Able to control breath rate for swallow Aphasia: No abnormality detected Apraxia: No abnormality detected Dysarthria: No abnormality detected Saliva: No abnormality detected Lip Seal: No abnormality detected Tongue Movement: Full range of motion Tongue Strength: No abnormality detected Tongue Coordination: No abnormality detected Gag: No gag (not assessed) Palate: No abnormality detected Cough Reflex: No deficit noted Voluntary Cough: No abnormality detected Voice: No abnormality detected Trach: No trach Oral Preparation: No deficits noted Bolus Clearance: Fully cleared Oral Transit: No deficits note Pharyngeal Phase: Immediate laryngeal elevation Pharyngeal Response: No deficits noted MASA Score: 194 Dysphagia: No dysphagia detected (178-200) Aspiration Risk: No aspiration risk (170-200) NOMS: National Outcomes Measurement System: Level 7 Plan PROGRAM TECHNICIAN Frequency of Services: One-time visit (Discharge from this service) Follow Up Therapy Recommendations: none Further Assessment/Follow up Indicated: none Next Visit Plan:No further ST warranted Additional Referrals: none Please reference care plan for treatment goals, if indicated. Discharge Summary Statement If this is the last swallow therapy visit, this serves as the discharge summary. us Keesha Aguirre MD PROGRAM TECHNICIAN ORDERABLES Final Result * POCT glucose (11/19/2021 8:17 AM CDT) Glucose, POC 176 70 - 199 mg/dL [facility] Blood 11/19/2021 8:17 AM CDT 11/19/2021 8:17 AM CDT Reuben Dillon MD LAB POCT ORDERABLES - DEVIC E Final Result Performing Organization Address City/[facility] Co de Phone Number [facility] [place] [address] * POCT glucose (11/19/2021 8:13 AM CDT) Glucose, POC 184 70 - 199 mg/dL [facility] Blood 11/19/2021 8:13 AM CDT 11/19/2021 8:13 AM CDT Reuben Dillon MD LAB POCT ORDERABLES - DEVIC E Final Result Performing Organization Address [facility] Co de Phone Number [facility] [place] [address] * (ABNORMAL) POCT glucose (11/18/2021 9:32 PM CDT) Glucose, POC 210(H) 70 - 199 mg/dL [facility] Blood 11/18/2021 9:32 PM CDT 11/18/2021 9:32 PM CDT Keesha Aguirre MD LAB POCT ORDERABLES - DEVICE Final Result Performing Organization Address [facility] Co de Phone Number [facility] [place] [address] * POCT glucose (11/18/2021 4:53 PM CDT) Glucose, POC 191 70 - 199 mg/dL [facility] Glucose comment 1 Glu2: RN/MD Notified [facility] Blood 11/18/2021 4:53 PM CDT 11/18/2021 4:53 PM CDT Keesha Aguirre MD LAB POCT ORDERABLES - DEVICE Final Result Performing Organization Address [facility] Co de Phone Number [facility] [place] [address] * POCT glucose (11/18/2021 11:49 AM CDT) Glucose, POC 145 70 - 199 mg/dL [facility] Blood 11/18/2021 11:4 9 AM CDT 11/18/2021 11:49 AM CDT Keesha Aguirre MD LAB POCT ORDERABLES - DEVICE Final Result Performing Organization Address [facility] de Phone Number [facility] [place] [address] * POCT glucose (11/18/2021 7:54 AM CDT) Glucose, POC 180 70 - 199 mg/dL [facility] Glucose comment 1 Glu2: RN/ Notified [facility] Blood 11/18/2021 7:54 AM CDT 11/18/2021 7:54 AM CDT Keesha Aguirre MD LAB POCT ORDERABLES - DEVICE Final Result Performing Organization Address [facility] de Phone Number [facility] [place] [address] * (ABNORMAL) eGFR (11/18/2021 5:12 AM CDT) eGFR 26(L) 90 - 130 mL/min/1. 73 m2 NILSA [facility] Comment: Interpretive Data Reference Interval Normal ?>/= [...] interpretive data was last reviewed 2021. Blood 11/18/2021 5:12 AM CDT 11/18/2021 5:54 AM CDT us Keesha Aguirre MD LAB BLOOD ORDERABLES Final R esult [facility] Department [place] [address] * (ABNORMAL) Differential, auto (11/18/2021 5:12 AM CDT) Neutrophil abs 6.7(H) 1.7 - 6.5 K/cumm [facility] Imm gran abs 0.1 0.0 - 0.1 K/cumm [facility] Lymphocyte abs 3.3 0.8 - 3.3 K/cumm [facility] Monocyte abs 0.7 0.2 - 0.8 K/cumm [facility] Eosinophil abs 0.3 0.0 - 0.5 K/cumm [facility] Basophil abs 0.1 0.0 - 0.1 K/cumm [facility] Neutrophil pct 60.6 % [facility] Comment: Interpretive Data Percent cell count reference ranges are not reported, since discordance with absolute values may lead to misinterpretation of CBC data. Current Interpretive Data was last revised on 2017. Imm gran pct 0.5 % [facility] Comment: Interpretive Data Percent cell count reference ranges are not reported, since discordance with absolute values may lead to misinterpretation of CBC data. Current Interpretive Data was last revised on 2017. Lymphocyte pct 29.3 % [facility] Comment: Interpretive Data Percent cell count reference ranges are not reported, since discordance with absolute values may lead to misinterpretation of CBC data. Current Interpretive Data was last revised on 2017. Monocyte pct 6.2 % [facility] Comment: Interpretive Data Percent cell count reference ranges are not reported, since discordance with absolute values may lead to misinterpretation of CBC data. Current Interpretive Data was last revised on 2017. Eosinophil pct 2.9 % [facility] Comment: Interpretive Data Percent cell count reference ranges are not reported, since discordance with absolute values may lead to misinterpretation of CBC data. Current Interpretive Data was last revised on 2017. Basophil pct 0.5 % [facility] Comment: Interpretive Data Percent cell count reference ranges are not reported, since discordance with absolute values may lead to misinterpretation of CBC data. Current Interpretive Data was last revised on 2017. Blood 11/18/2021 5:12 AM CDT 11/18/2021 5:54 AM CDT us Keesha Aguirre MD LAB BLOOD ORDERABLES Final R esult [facility] Department [place] [address] * (ABNORMAL) CBC with auto differential (11/18/2021 5:12 AM CDT) [facility] WBC 11.1(H) 3.8 - 9.9 K/cumm [facility] Hgb 8.1(L) 11.9 - 15.5 g/dL [facility] Hct 25.8(L) 35.6 - 45.5 % [facility] Plt 371 150 - 400 K/cumm [facility] MPV 10.3 9.1 - 12.3 fL [facility] RBC 2.88(L) 3.90 - 5.20 M/cumm [facility] MCV 89.6 81.3 - 96.4 fL [facility] MCH 28.1 27.1 - 33.3 pg [facility] MCHC 31.4(L) 32.3 - 35.7 g/dL [facility] RDW CV 14.6 11.1 - 14.9 % [facility] RDW SD 48.0 35.7 - 48.1 fL [facility] NRBC abs 0.00 0.00 - 0.01 K/cumm [facility] Blood 11/18/2021 5:12 AM CDT 11/18/2021 5:54 AM CDT Keesha Aguirre MD LAB BLOOD ORDERABLES Final R esult [facility] Department [place] [address] * (ABNORMAL) Basic metabolic panel (11/18/2021 5:12 AM CDT) [facility] Sodium 142 135 - 145 mmol/L [facility] Potassium, pl 5.0(H) 3.3 - 4.9 mmol/L [facility] Chloride 107 97 - 110 mmol/L [facility] CO2 25 22 - 32 mmol/L [facility] Anion gap 10 2 - 15 mmol/L [facility] BUN 65(H) 8 - 25 mg/dL [facility] Creatinine 2.00(H) 0.60 - 1.10 mg/dL [facility] Glucose 172 70 - 199 mg/dL [facility] Comment: Interpretive Data Fasting glucose [...] interpretive data was last revised 2017. Calcium 9.6 8.5 - 10.3 mg/dL [facility] Blood 11/18/2021 5:12 AM CDT 11/18/2021 5:54 AM CDT Keesha Aguirre MD LAB BLOOD ORDERABLES Final R esult Performing Organization Address City/[facility]/ZIP Co de Phone Number [facility] Department [place] [address] * (ABNORMAL) POCT glucose (11/17/2021 9:21 PM CDT) Glucose, POC 234(H) 70 - 199 mg/dL [facility] Blood 11/17/2021 9:21 PM CDT 11/17/2021 9:21 PM CDT Keesha Aguirre MD LAB POCT ORDERABLES - DEVICE Final Result Performing Organization Address City/[facility] Co de Phone Number [facility] [place] [address] * (ABNORMAL) POCT glucose (11/17/2021 4:45 PM CDT) Glucose, POC 202(H) 70 - 199 mg/dL [facility] Glucose comment 1 Glu2: RN/MD Notified [facility] Blood 11/17/2021 4:45 PM CDT 11/17/2021 4:45 PM CDT us Keesha Aguirre MD LAB POCT ORDERABLES - DEVICE Final Result Performing Organization Address [facility] Co de Phone Number [facility] [place] [address] * (ABNORMAL) POCT glucose (11/17/2021 11:17 AM CDT) Glucose, POC 229(H) 70 - 199 mg/dL [facility] Glucose comment 1 Glu2: RN/MD Notified [facility] Blood 11/17/2021 11:1 7 AM CDT 11/17/2021 11:17 AM CDT us Keesha Aguirre MD LAB POCT ORDERABLES - DEVICE Final Result Performing Organization Address [facility] de Phone Number [facility] [place] [address] * POCT glucose (11/17/2021 7:31 AM CDT) Glucose, POC 132 70 - 199 mg/dL [facility] Blood 11/17/2021 7:31 AM CDT 11/17/2021 7:31 AM CDT us Keesha Aguirre MD LAB POCT ORDERABLES - DEVICE Final Result Performing Organization Address [facility] de Phone Number [facility] [place] [address] * POCT glucose (11/16/2021 8:02 PM CDT) Glucose, POC 184 70 - 199 mg/dL [facility] Blood 11/16/2021 8:02 PM CDT 11/16/2021 8:02 PM CDT us Keseha Aguirre MD LAB POCT ORDERABLES - DEVICE Final Result Performing Organization Address [facility] Co de Phone Number [facility] [place] [address] * (ABNORMAL) POCT glucose (11/16/2021 4:33 PM CDT) Glucose, POC 241(H) 70 - 199 mg/dL [facility] Blood 11/16/2021 4:33 PM CDT 11/16/2021 4:33 PM CDT Keesha Aguirre MD LAB POCT ORDERABLES - DEVICE Final Result Performing Organization Address [facility] Co de Phone Number [facility] [place] [address] * (ABNORMAL) POCT glucose (11/16/2021 11:25 AM CDT) Glucose, POC 260(H) 70 - 199 mg/dL [facility] Blood 11/16/2021 11:2 5 AM CDT 11/16/2021 11:25 AM CDT Keesha Aguirre MD LAB POCT ORDERABLES - DEVICE Final Result Performing Organization Address [facility] Co de Phone Number [facility] [place] [address] * (ABNORMAL) POCT glucose (11/16/2021 7:35 AM CDT) Glucose, POC 214(H) 70 - 199 mg/dL [facility] Blood 11/16/2021 7:35 AM CDT 11/16/2021 7:35 AM CDT Keesha Aguirre MD LAB POCT ORDERABLES - DEVICE Final Result Performing Organization Address City/[facility] Co de Phone Number [facility] Department [place] [address] * CT Chest WO Contrast (11/16/2021 1:07 AM CDT) Anatomical Region Laterality Modality Body N/A Computed Tomogra phy 11/16/2021 8:50 AM CDT Impressions 11/16/2021 9:30 AM CDT 1. Mild smooth bronchial wall thickening in the lower lobes without consolidation, possibly reflecting bronchitis or sequela of aspiration. 2. Right upper lobe 3 mm pulmonary nodule, indeterminate but likely infectious or inflammatory in etiology given the patient's history. Consider follow-up CT chest in one year to document resolution if there are clinical risk factors. Dictated by: Poli Eagle MD PHD The radiology attending physician has personally reviewed this study, and had reviewed and/or edited this written report and agrees with it. Electronically signed by: La Nena Jean MD Narrative 11/16/2021 9:30 AM CDT EXAMINATION: ??Computed tomography of the chest without intravenous contrast HISTORY: Worsening cough, recently treated pneumonia. TECHNIQUE: ??Transaxial computed tomographic images of the chest were obtained without intravenous contrast according to the standard protocol. COMPARISON: No direct comparison available. Chest radiograph 11/15/2021. FINDINGS: ?? Patent central airways. There is mild smooth bronchial wall thickening in the lower lobes. Mild left greater than right bibasilar atelectasis without convincing consolidation. Left apical pleural-parenchymal scarring. There is a 3 mm nodule in the right upper lobe (table position -891.0). No pneumothorax or pleural effusion. Normal heart size. No pericardial effusion. Coronary artery calcifications. Normal caliber thoracic aorta and main pulmonary artery. No supraclavicular, axillary, hilar or mediastinal lymphadenopathy. Calcified lung granulomas and hilar lymph nodes, in keeping with old granulomatous disease. Images of the upper abdomen are unremarkable. No suspicious osseous lesions. Procedure Note La Nena Jean MD - 11/16/2021 EXAMINATION: Computed tomography of the chest without intravenous contrast HISTORY: Worsening cough, recently treated pneumonia. TECHNIQUE: Transaxial computed tomographic images of the chest were obtained without intravenous contrast according to the standard protocol. COMPARISON: No direct comparison available. Chest radiograph 11/15/2021. FINDINGS: Patent central airways. There is mild smooth bronchial wall thickening in the lower lobes. Mild left greater than right bibasilar atelectasis without convincing consolidation. Left apical pleural-parenchymal scarring. There is a 3 mm nodule in the right upper lobe (table position -891.0). No pneumothorax or pleural effusion. Normal heart size. No pericardial effusion. Coronary artery calcifications. Normal caliber thoracic aorta and main pulmonary artery. No supraclavicular, axillary, hilar or mediastinal lymphadenopathy. Calcified lung granulomas and hilar lymph nodes, in keeping with old granulomatous disease. Images of the upper abdomen are unremarkable. No suspicious osseous lesions. IMPRESSION: 1. Mild smooth bronchial wall thickening in the lower lobes without consolidation, possibly reflecting bronchitis or sequela of aspiration. 2. Right upper lobe 3 mm pulmonary nodule, indeterminate but likely infectious or inflammatory in etiology given the patient's history. Consider follow-up CT chest in one year to document resolution if there are clinical risk factors. Dictated by: Poli Eagle MD PHD The radiology attending physician has personally reviewed this study, and had reviewed and/or edited this written report and agrees with it. Electronically signed by: La Nena Jean MD Hussein Long MD IMG CT PROCEDURES Final Result * (ABNORMAL) POCT glucose (11/16/2021 12:39 AM CDT) [facility] Glucose, POC 231(H) 70 - 199 mg/dL [facility] Blood 11/16/2021 12:3 9 AM CDT 11/16/2021 12:39 AM CDT Nelly Salazar MD LAB POCT ORDERABLES - DEVIC E Final Result [facility] Department [place] [address] * (ABNORMAL) Respiratory pathogen panel Nasopharyngeal (11/16/2021 12:34 AM CDT) [facility] Influenza A RNA Not Detected Not Detected [facility] Influenza B RNA Not Detected Not Detected [facility] RSV RNA Not Detected Not Detected [facility] COVID-19 RNA Not Detected Not Detected [facility] Coronavirus 229E RNA Not Detected Not Detected [facility] Coronavirus HKU1 RNA Not Detected Not Detected [facility] Coronavirus NL63 RNA Not Detected Not Detected [facility] Coronavirus OC43 RNA Not Detected Not Detected [facility] Adenovirus DNA Not Detected Not Detected [facility] Metapneumovirus RNA Detected(A) Not Detected [facility] Rhinovirus/Enterov irus RNA Not Detected Not Detected [facility] Parainfluenza 1 RNA Not Detected Not Detected [facility] Parainfluenza 2 RNA Not Detected Not Detected [facility] Parainfluenza 3 RNA Not Detected Not Detected [facility] Parainfluenza 4 RNA Not Detected Not Detected [facility] B. pertussis DNA Not Detected Not Detected [facility] B. parapertussis DNA Not Detected Not Detected [facility] C. pneumoniae DNA Not Detected Not Detected [facility] M. pneumoniae DNA Not Detected Not Detected [facility] Nasopharyngeal 11/16/2021 12 :34 AM CDT 11/16/2021 12:46 AM CDT Narrative [facility] - 11/16/2021 1:43 AM CDT Is the Patient experiencing symptoms consistent with COVID?->Yes Date of Symptom Onset->11/14/21 Reason for testing?->Symptomatic Surveillance testing for transplant patient?->No ??Interpretive Data The [employer] FilmArray Respiratory Panel (RP2.1) assay is a [...] assay has FDA clearance for testing of [employer]ARDING [employer]SE [employer]NAGER swabs. ??The performance characteristics of this assay have been determined by [facility]. Current interpretive data was last revised on 2021. ??Interpretive Data The [employer] FilmArray Respiratory Panel (RP2.1) assay is a [...] assay has FDA clearance for testing of [employer]ARDING HOUSE [employer]NAGER swabs. ??The performance characteristics of this assay have been determined by [facility]. Current interpretive data was last revised on 2021. us Hussein Long MD LAB MICROBIOLOGY - [facility] ORDERABLES Final Result Performing Organization Address City/[facility]/ZIP Co de Phone Number [facility] [place] [address] * POCT glucose (11/15/2021 8:26 PM CDT) [facility] Signature Glucose, POC 159 70 - 199 mg/dL [facility] Blood 11/15/2021 8:26 PM CDT 11/15/2021 8:26 PM CDT us Nelly Salazar MD LAB POCT ORDERABLES - DEVIC E Final Result Performing Organization Address City/[facility] Co de Phone Number [facility] [place] [address] * POCT glucose (11/15/2021 6:10 PM CDT) Glucose, POC 113 70 - 199 mg/dL [facility] Blood 11/15/2021 6:10 PM CDT 11/15/2021 6:10 PM CDT us Nelly Salazar MD LAB POCT ORDERABLES - DEVIC E Final Result Performing Organization Address City/[facility] [place] [address] * POCT glucose (11/15/2021 5:19 PM CDT) Glucose, POC 116 70 - 199 mg/dL [facility] Blood 11/15/2021 5:19 PM CDT 11/15/2021 5:19 PM CDT us Nelly Salazar MD LAB POCT ORDERABLES - DEVIC E Final Result Performing Organization Address City/[facility] [place] [address] * POCT glucose (11/15/2021 10:52 AM CDT) Glucose, POC 154 70 - 199 mg/dL [facility] Blood 11/15/2021 10:5 2 AM CDT 11/15/2021 10:52 AM CDT us Nelly Salazar MD LAB POCT ORDERABLES - DEVIC E Final Result Performing Organization Address City/[facility] [place] [address] * POCT glucose (11/15/2021 6:58 AM CDT) Glucose, POC 190 70 - 199 mg/dL [facility] Blood 11/15/2021 6:58 AM CDT 11/15/2021 6:58 AM CDT Nelly Salazar MD LAB POCT ORDERABLES - DEVIC E Final Result [facility] Department [place] [address] * COVID-19 Coronavirus RNA Nasopharyngeal (11/15/2021 5:31 AM CDT) Pathologist [facility] COVID-19 RNA Negative Negative [facility] Nasopharyngeal 11/15/2021 5: 31 AM CDT 11/15/2021 5:44 AM CDT Narrative [facility] - 11/15/2021 6:41 AM CDT Is the patient experiencing any symptoms consistent with COVID (eg. Fever, cough, shortness of breath)?->No What is the reason for testing?->Bed placement or semi-private room (Rapid) ?? Interpretive data: Synonyms for this test include: PCR and NAAT . ??This test is performed using the [employer] Xpert Xpress assay. This is a real-time RT-PCR test intended for the qualitative detection of nucleic acid from the SARS-CoV-2. This assay has been reviewed by the FDA for Emergency Use Authorization (EUA). The performance characteristics have been verified by the performing laboratory. Results must be considered in the clinical context and a negative result does not rule out infection. Interpretive data last revised July 26, 2020. ?? Interpretive data: Synonyms for this test include: PCR and NAAT . ??This test is performed using the [employer] Xpert Xpress assay. This is a real-time RT-PCR test intended for the qualitative detection of nucleic acid from the SARS-CoV-2. This assay has been reviewed by the FDA for Emergency Use Authorization (EUA). The performance characteristics have been verified by the performing laboratory. Results must be considered in the clinical context and a negative result does not rule out infection. Interpretive data last revised July 26, 2020. Larry Mccall MD PhD LAB MICROBIOLOGY - GENERAL O RDERABLES Final Result Performing Organization Address [facility] Co de Phone Number [facility] Department [place] [address] * Troponin I high-sensitivity 2-hour (11/15/2021 4:45 AM CDT) Trop I hs 4 <=17 ng/L [facility] Comment: Interpretive Data For further hscTnI resources including the diagnostic algorithm and an aid in interpretation, copy and paste this link: https://bjhlab.testcatalog.org/show/hsTrop-1 Current Interpretive Data last revised 2020. Trop I hs delta 0 ng/L [facility] Trop I hs interp Insignificant [facility] Blood 11/15/2021 4:45 AM CDT 11/15/2021 4:54 AM CDT us Taras Rivera MD PhD LAB BLOOD ORDERABLE S Final Result Performing Organization Address [facility] Co de Phone Number [facility] [place] [address] * XR Chest Pa Lateral 2 Vw (11/15/2021 3:29 AM CDT) Anatomical Region Laterality Modality Body, Chest N/A Computed Radiogr aphy 11/15/2021 4:10 AM CDT Impressions 11/15/2021 8:54 AM CDT Comparison radiograph 09/06/2021. There is bibasilar atelectasis. No pleural effusion. Patient is leaning slightly to the left. No pneumothorax. The cardiac mediastinal silhouette is normal. Dictated by: Agus Lezama M.D. The radiology attending physician has personally reviewed this study, and had reviewed and/or edited this written report and agrees with it. Electronically signed by: Olivier Lauren M.D. Narrative 11/15/2021 8:54 AM CDT EXAMINATION: 2 view chest radiograph Procedure Note Olivier Lauren MD - 11/15/2021 EXAMINATION: 2 view chest radiograph IMPRESSION: Comparison radiograph 09/06/2021. There is bibasilar atelectasis. No pleural effusion. Patient is leaning slightly to the left. No pneumothorax. The cardiac mediastinal silhouette is normal. Dictated by: Agus Lezama M.D. The radiology attending physician has personally reviewed this study, and had reviewed and/or edited this written report and agrees with it. Electronically signed by: Olivier Lauren M.D. us Larry Mccall MD PhD IMG XR PROCEDURES Final Resu lt * Troponin I high-sensitivity series (baseline, 2hr, 4hr, 6hr) (11/15/2021 3:01 AM CDT) Trop I hs <4 <=17 ng/L [facility] Comment: Interpretive Data For further hscTnI resources including the diagnostic algorithm and an aid in interpretation, copy and paste this link: https://bjhlab.testcatalog.org/show/hsTrop-1 Current Interpretive Data last revised 2020. Blood 11/15/2021 3:01 AM CDT 11/15/2021 3:20 AM CDT us Taras Rivera MD PhD LAB BLOOD ORDERABLE S Final Result Performing Organization Address City/State/[facility] Co de Phone Number [facility] [place] [address] * ECG 12-LEAD (11/15/2021 2:47 AM CDT) Narrative [facility] - 11/15/2021 2:47 AM CDT Taras Rivera MD PhD ? 11/15/2021 ??2:47 AM ECG 12 lead Date/Time: 11/15/2021 2:47 AM Performed by: Taras Rivera MD PhD Authorized by: Larry Mccall MD PhD Comments: ?? (02:38) sinus rhythm at 82 beats per minute; normal axis; normal intervals; no acute ST or T-wave abnormality. ??Normal EKG. ??Low risk ACS. Procedure Note Taras Rivera MD PhD - 11/15/2021 2:47 AM CDT Procedure ECG 12 lead Date/Time: 11/15/2021 2:47 AM Performed by: Taras Rivera MD PhD Authorized by: Larry Mccall MD PhD Comments: (02:38) sinus rhythm at 82 beats per minute; normal axis; normalintervals; no acute ST or T-wave abnormality. Normal EKG. Low riskACS. Taras Rivera MD PhD 11/15/21 0247 Larry Mccall MD PhD ECG ORDERABLES Final Result Performing Organization Address [facility] Co de Phone Number [facility] * (ABNORMAL) Hemoglobin A1c (11/15/2021 2:43 AM CDT) Pathologist [facility] Hgb A1C 8.2(H) 4.0 - 5.6 % [facility] Estimated Average Glucose 189 mg/dL [facility] Comment: The ADA recommends reporting an estimated Average Glucose (eAG) with all Hemoglobin A1c results using the equation derived from a study of 507 normal and diabetic adults. ??Minority populations were underrepresented and children were not included. ?? (Diabetes Care 2020; 43(S1): S66-S76). ??The eAG is not equivalent to a fasting glucose. Blood 11/15/2021 2:43 AM CDT 11/15/2021 3:33 AM CDT us Nelly Salazar MD LAB BLOOD ORDERABLES Final Result Performing Organization Address City/[facility]/ZIP Co de Phone Number [facility] Department [place] [address] * (ABNORMAL) eGFR (11/15/2021 2:43 AM CDT) Pathologist [facility] eGFR 24(L) 90 - 130 mL/min/1. 73 m2 [facility] Comment: Interpretive Data Reference Interval [...] interpretive data was last reviewed 2021. Blood 11/15/2021 2:43 AM CDT 11/15/2021 3:33 AM CDT us Larry Mccall MD PhD LAB BLOOD ORDERABLES Final R esult [facility] Department [place] [address] * (ABNORMAL) Differential, auto (11/15/2021 2:43 AM CDT) Pathologist [facility] Neutrophil abs 9.1(H) 1.7 - 6.5 K/cumm [facility] Imm gran abs 0.1 0.0 - 0.1 K/cumm [facility] [facility] Lymphocyte abs 2.9 0.8 - 3.3 K/cumm [facility] Monocyte abs 1.2(H) 0.2 - 0.8 K/cumm [facility] Eosinophil abs 0.3 0.0 - 0.5 K/cumm [facility] Basophil abs 0.0 0.0 - 0.1 K/cumm [facility] Neutrophil pct 66.8 % [facility] Comment: Interpretive Data Percent cell count reference ranges are not reported, since discordance with absolute values may lead to misinterpretation of CBC data. Current Interpretive Data was last revised on 2017. Imm gran pct 0.6 % [facility] Comment: Interpretive Data Percent cell count reference ranges are not reported, since discordance with absolute values may lead to misinterpretation of CBC data. Current Interpretive Data was last revised on 2017. Lymphocyte pct 21.5 % [facility] Comment: Interpretive Data Percent cell count reference ranges are not reported, since discordance with absolute values may lead to misinterpretation of CBC data. Current Interpretive Data was last revised on 2017. Monocyte pct 8.5 % [facility] Comment: Interpretive Data Percent cell count reference ranges are not reported, since discordance with absolute values may lead to misinterpretation of CBC data. Current Interpretive Data was last revised on 2017. Eosinophil pct 2.3 % [facility] Comment: Interpretive Data Percent cell count reference ranges are not reported, since discordance with absolute values may lead to misinterpretation of CBC data. Current Interpretive Data was last revised on 2017. Basophil pct 0.3 % [facility] Comment: Interpretive Data Percent cell count reference ranges are not reported, since discordance with absolute values may lead to misinterpretation of CBC data. Current Interpretive Data was last revised on 2017. Blood 11/15/2021 2:43 AM CDT 11/15/2021 3:19 AM CDT us Larry Mccall MD PhD LAB BLOOD ORDERABLES Final R esult NILSA ZARATE [facility] Department [place] [address] * Pro B-type natriuretic peptide (11/15/2021 2:43 AM CDT) NT-proBNP 175 <=300 pg/mL [facility] Comment: Interpretive Comments: A. Dyspnea in Acute [...] Interpretive Data Last Revised Date: 2018. Blood 11/15/2021 2:43 AM CDT 11/15/2021 3:33 AM CDT Larry Mccall MD PhD LAB BLOOD ORDERABLES Final R esult [facility] Department [place] [address] * (ABNORMAL) Comprehensive metabolic panel (11/15/2021 2:43 AM CDT) Sodium 136 135 - 145 mmol/L [facility] Potassium, pl 5.0(H) 3.3 - 4.9 mmol/L [facility] Chloride 103 97 - 110 mmol/L [facility] CO2 24 22 - 32 mmol/L [facility] Anion gap 9 2 - 15 mmol/L [facility] BUN 72(H) 8 - 25 mg/dL [facility] Creatinine 2.15(H) 0.60 - 1.10 mg/dL [facility] Glucose 188 70 - 199 mg/dL [facility] Comment: Interpretive Data Fasting glucose [...] interpretive data was last revised 2017. Calcium 10.3 8.5 - 10.3 mg/dL [facility] Bilirubin, total 0.2 0.1 - 1.2 mg/dL [facility] Protein, pl 7.7 6.5 - 8.5 g/dL [facility] Albumin 3.5 3.5 - 5.0 g/dL [facility] Alk phos 104 40 - 130 Units/L [facility] ALT 19 7 - 45 Units/L [facility] AST 25 10 - 45 Units/L [facility] Blood 11/15/2021 2:43 AM CDT 11/15/2021 3:33 AM CDT us Larry Mccall MD PhD LAB BLOOD ORDERABLES Final R esult Performing Organization Address [facility] Co de Phone Number [facility] [place] [address] * (ABNORMAL) CBC with auto differential (11/15/2021 2:43 AM CDT) WBC 13.6(H) 3.8 - 9.9 K/cumm [facility] Hgb 8.5(L) 11.9 - 15.5 g/dL [facility] Hct 27.5(L) 35.6 - 45.5 % [facility] Plt 367 150 - 400 K/cumm [facility] MPV 10.4 9.1 - 12.3 fL [facility] RBC 3.05(L) 3.90 - 5.20 M/cumm [facility] MCV 90.2 81.3 - 96.4 fL [facility] MCH 27.9 27.1 - 33.3 pg [facility] MCHC 30.9(L) 32.3 - 35.7 g/dL [facility] RDW CV 14.5 11.1 - 14.9 % [facility] RDW SD 47.3 35.7 - 48.1 fL [facility] NRBC abs 0.00 0.00 - 0.01 K/cumm [facility] Blood 11/15/2021 2:43 AM CDT 11/15/2021 3:19 AM CDT Larry Mccall MD PhD LAB BLOOD ORDERABLES Final R esult [facility] [place] [address] * POCT glucose (11/14/2021 11:12 PM CDT) Glucose, POC 175 70 - 199 mg/dL [facility] Blood 11/14/2021 11:1 2 PM CDT 11/14/2021 11:12 PM CDT us Notinfile Unknown LAB POCT ORDERABLES - DEVICE F inal Result NILSA OKEEFE [facility] Department [place] [address] documented in this encounter Visit Diagnoses Diagnosis Cough- Primary Cough Weakness Other malaise and fatigue Stage 3b chronic kidney disease (HCC) Type 2 diabetes mellitus with diabetic neuropathy, with long-term current use of insulin (CMS/HCC) (HCC) Schizoaffective disorder, bipolar type (CMS/HCC) (HCC) Schizoaffective disorder, unspecified condition Dementia (HCC) Other persistent mental disorders due to conditions classified elsewhere Physical deconditioning Muscular wasting and disuse atrophy, not elsewhere classified Left leg DVT (HCC) Hyperlipidemia associated with type 2 diabetes mellitus (HCC) Pulmonary nodule Other diseases of lung, not elsewhere classified Anemia, unspecified type Gastritis without bleeding, unspecified chronicity, unspecified gastritis type documented in this encounter Admitting Diagnoses Diagnosis Cough documented in this encounter Administered Medications Inactive Administered Medications - up to 3 most recent administrations Medication Order MAR Action Action Date Dose Rate Site albuterol HFA (PROVENTIL HFA,VENTOLIN HFA,PROAIR HFA) 90 mcg/actuation inhaler 2 puff 2 puff, inhalation, Every 6 hours while awake (sales correspondent), First dose on Thu11/15/21 at 1845, For 6 doses Given 11/17/2021 12:34 PM CDT 2 puffs Given 11/17/2021 5:35 AM CDT 2 puffs Given 11/16/2021 5:25 PM CDT 2 puffs apixaban (ELIQUIS) tablet 5 mg 5 mg, oral, Every 12 hours scheduled, First dose on Thu11/15/21 at 2100, Nurse to discontinue heparin infusion order and associated bolus at first administration of apixaban using ? order condition met? order source, Indications: Venous ThrombosisIndications:Venous Thrombosis Given 11/26/2021 9:13 AM CDT 5 mg Given 11/25/2021 8:48 PM CDT 5 mg Given 11/25/2021 9:17 AM CDT 5 mg atorvastatin (LIPITOR) tablet 40 mg 40 mg, oral, Daily, First dose on Thu11/15/21 at 1845 Given 11/26/2021 9:13 AM CDT 40 mg Given 11/25/2021 9:17 AM CDT 40 mg Given 11/24/2021 10:08 AM CDT 40 mg benzonatate (TESSALON) capsule 100 mg 100 mg, oral, 3 times daily, First dose on Thu11/15/21 at 2100, Do not crush, chew, cut, dissolve, open or otherwise manipulate tablet/capsule., Indications: CoughIndications:Cough Given 11/26/2021 2:49 PM CDT 100 mg Given 11/26/2021 9:13 AM CDT 100 mg Given 11/25/2021 10:26 PM CDT 100 mg carvediloL (COREG) tablet 3.125 mg 3.125 mg, oral, 2 times daily with meals (bkfst, dinner), First dose on Thu11/15/21 at 1845 Given 11/26/2021 6:06 PM CDT 3.125 mg Given 11/26/2021 9:13 AM CDT 3.125 mg Given 11/25/2021 5:40 PM CDT 3.125 mg dextrose (D10W) 10% bolus 250 mL 250 mL, intravenous, at 1,000 mL/hr, Administer over 15 Minutes, Every 15 min PRN, blood glucose less than 70 mg/dL and UNABLE to swallow/take PO glucose/juice., Starting on Thu11/15/21 at 1807, After treatment for hypoglycemia, recheck BG followed [...] glucose less than 70 mg/dL, Starting on Thu11/15/21 at 1807, If patient is alert and able to [...] Indications: hypoglycemic disorderIndications:hypoglycemic disorder famotidine (PEPCID) tablet 20 mg 20 mg, oral, Daily, First dose on Thu11/15/21 at 1845 Given 11/26/2021 9:13 AM CDT 20 mg Given 11/25/2021 9:17 AM CDT 20 mg Given 11/24/2021 10:07 AM CDT 20 mg furosemide (LASIX) tablet 20 mg 20 mg, oral, Daily, First dose on Thu11/15/21 at 1845 Given 11/26/2021 9:13 AM CDT 20 mg Given 11/25/2021 9:17 AM CDT 20 mg Given 11/24/2021 10:08 AM CDT 20 mg guaiFENesin ER (MUCINEX) extended release tablet 1,200 mg 1,200 mg, oral, 2 times daily, First dose on Thu11/15/21 at 2100, Do not crush, chew, cut, dissolve, open or otherwise manipulate tablet/capsule. Given 11/26/2021 9:13 AM CDT 1,200 mg Given 11/25/2021 8:48 PM CDT 1,200 mg Given 11/25/2021 9:17 AM CDT 1,200 mg insulin glargine (LANTUS, SEMGLEE) 100 unit/mL injection 20 Units 20 Units, subcutaneous, Nightly, First dose on Thu11/15/21 at 2100, Do not hold if NPO. Do not mix with other insulins, Indications: Diabetes MellitusIndications:Diabete s Mellitus Given 11/15/2021 8:35 PM CDT 20 Units Left Lower Abdomen insulin glargine (LANTUS, SEMGLEE) 100 unit/mL injection 23 Units 23 Units, subcutaneous, Nightly, First dose (after last modification) on Thu11/16/21 at 2100, Do not hold if NPO. Do not mix with other insulins, Indications: Diabetes MellitusIndications:Diabete s Mellitus Given 11/25/2021 8:48 PM CDT 23 Units Right Lower Abdomen Given 11/24/2021 8:41 PM CDT 23 Units Le ft Lower Abdomen Given 11/23/2021 10:17 PM CDT 23 Units L eft Lower Abdomen insulin lispro (HumaLOG, ADMELOG) 100 unit/mL injection 0-4 Units 0-4 Units, subcutaneous, Nightly, First dose on Thu11/15/21 at 2100, Blood glucose mg/dL: 199 or less: No insulin 200-249: add 1 unit 250-299: add 2 units 300-349: add 3 units and notify physician for adjustment of insulin orders. 350-399: add 4 units and notify physician for adjustment of insulin orders. Over 400: Notify physician for adjustment of insulin orders. Do NOT hold for NPO Status, Indications: Diabetes MellitusIndications:Diabetes Mellitus Given 11/23/2021 10:17 PM CDT 1 Units Left Upper Arm Given 11/21/2021 9:50 PM CDT 1 Units Ri ght Upper Arm Given 11/18/2021 9:54 PM CDT 1 Units Le ft Upper Arm insulin lispro (HumaLOG, ADMELOG) 100 unit/mL injection 0-5 Units 0-5 Units, subcutaneous, 3 times daily with meals, First dose on Thu11/15/21 at 1845, Blood glucose mg/dL: 149 or less: No [...] NPO Status, Indications: Diabetes MellitusIndications:Diabetes Mellitus Given 11/26/2021 12:30 PM CDT 1 Units Left Upper Arm Given 11/25/2021 5:41 PM CDT 2 Units Le ft Upper Arm Given 11/25/2021 12:15 PM CDT 2 Units L eft Upper Arm insulin lispro (HumaLOG, ADMELOG) 100 unit/mL injection 4 Units 4 Units (rounded from 3.63 Units = 0.05 Units/kg ? 72.6 kg), subcutaneous, 3 times daily with meals, First dose on Thu11/15/21 at 1845, If BG greater than or equal to [...] 70 mg/dL., Indications: Diabetes MellitusIndications:Diabetes Mellitus Given 11/18/2021 8:30 AM CDT 4 Units Left Lower Abdomen Given 11/17/2021 5:31 PM CDT 4 Units Le ft Lower Abdomen Given 11/17/2021 12:10 PM CDT 4 Units L eft Lower Abdomen insulin lispro (HumaLOG, ADMELOG) 100 unit/mL injection 6 Units 6 Units, subcutaneous, 3 times daily with meals, First dose (after last modification) on Thu11/18/21 at 1200, If BG greater than or equal to [...] 70 mg/dL., Indications: Diabetes MellitusIndications:Diabetes Mellitus Given 11/26/2021 6:06 PM CDT 6 Units Left Upper Abdomen Given 11/26/2021 12:30 PM CDT 6 Units L eft Upper Arm Given 11/26/2021 9:14 AM CDT 6 Units Le ft Upper Arm ondansetron (ZOFRAN) injection 4 mg 4 mg, intravenous, Administer over 2 Minutes, Every 6 hours PRN, nausea, vomiting, if not tolerating PO, Starting on Thu11/15/21 at 1807, Indications: Nausea and VomitingIndications:Nausea and Vomiting ondansetron ODT (ZOFRAN-ODT) disintegrating tablet 4 mg 4 mg, oral, Every 6 hours PRN, nausea, vomiting, Starting on Thu11/15/21 at 1807, Indications: Nausea and VomitingIndications:Nausea and Vomiting pregabalin (LYRICA) capsule 150 mg 150 mg, oral, Nightly, First dose on Thu11/15/21 at 2100 Given 11/25/2021 8:48 PM CDT 150 mg Given 11/24/2021 7:47 PM CDT 150 mg Given 11/23/2021 8:11 PM CDT 150 mg risperiDONE (RisperDAL) tablet 2 mg 2 mg, oral, Nightly, First dose on Thu11/15/21 at 2100 Given 11/25/2021 8:48 PM CDT 2 mg Given 11/24/2021 7:46 PM CDT 2 mg Given 11/23/2021 8:11 PM CDT 2 mg sodium chloride 0.9% flush 0.5-20 mL 0.5-20 mL, intra-catheter, Every 8 hours scheduled, First dose on Thu11/15/21 at 2200, Flush volume based on line type and size. , Indications: FlushingIndications:Flushing Given 11/25/2021 5:41 PM CDT 10 mL Given 11/24/2021 1:13 PM CDT 10 mL Given 11/23/2021 1:09 PM CDT 10 mL documented in this encounter Historical Medications * This list may reflect changes made after this encounter. guaiFENesin ER (MUCINEX) 600 mg 12 hr tablet Take 1,200 mg by mouth 2 (two) times a day 01/14/2022 benzonatate (TESSALON) 100 mg capsuleIndication s:Cough Take 100 mg by mouth 3 (three) times a day as needed for cough 01/14/2022 apixaban (ELIQUIS) 5 mg tablet 5 mg every 12 (twelve) hours 02/03/2022 acetaminophen (TYLENOL) 325 mg tablet Take 2 tablets (650 mg total) by mouth every 6 (six) hours as needed for pain 10/10/2022 added in this encounter Active and Recently Administered Medications Times are shown in CDT. Scheduled Medication Order 11/24/2021 11/25/2021 11/26/2021 apixaban (ELIQUIS) tablet 5 mg 5 mg, oral, Every 12 hours scheduled, First dose on Thu11/15/21 at 2100, Nurse to discontinue heparin infusion order and associated bolus at first administration of apixaban using ? order condition met? order source, Indications: Venous Thrombosis 1007 (Given - Provider: Sarahy Rosas RN)1946 (Given - Provider: Tim Wade RN) 916 (Given - Provider: Krystal Philip RN)2047 (Given - Provider: Tim Wade RN) 0913 (Given - Provider: Radha Mccarty, RN) atorvastatin (LIPITOR) tablet 40 mg 40 mg, oral, Daily, First dose on Thu11/15/21 at 1845 1008 (Given - Provider: Sarahy Rosas RN) 0917 (Given - Provider: Krystal Philip RN) 0913 (Given - Provider: Radha Mccarty, RN) benzonatate (TESSALON) capsule 100 mg 100 mg, oral, 3 times daily, First dose on Thu11/15/21 at 2100, Do not crush, chew, cut, dissolve, open or otherwise manipulate tablet/capsule., Indications: Cough 1008 (Given - Provider: Sarahy Rosas RN)1702 (Not Given - Provider: Sarahy Rosas RN - Reason: Patient/family refused)1946 (Given - Provider: Tim Wade RN) 0917 (Given - Provider: Krystal Philip RN)1740 (Given - Provider: Krystal Philip RN)2226 (Given - Provider: Tim Wade RN) 0913 (Given - Provider: Radha Mccarty, ALIREZA)1449 (Given - Provider: Radha Mccarty, RN) carvediloL (COREG) tablet 3.125 mg 3.125 mg, oral, 2 times daily with meals (bkfst, dinner), First dose on Thu11/15/21 at 1845 1008 (Given - Provider: Sarahy Rosas RN)1725 (Given - Provider: Sarahy Rosas RN) 0917 (Given - Provider: Krystal Philip RN)1740 (Given - Provider: Krystal Philip RN) 0913 (Given - Provider: Radha Mccarty, RN)1806 (Given - Provider: Radha Mccarty, RN) famotidine (PEPCID) tablet 20 mg 20 mg, oral, Daily, First dose on Thu11/15/21 at 1845 1007 (Given - Provider: Sarahy Rosas RN) 0917 (Given - Provider: Krystal Philip RN) 0913 (Given - Provider: Radha Mccarty, ALIREZA) furosemide (LASIX) tablet 20 mg 20 mg, oral, Daily, First dose on Thu11/15/21 at 1845 1008 (Given - Provider: Sarahy Rosas, ALIREZA) 0917 (Given - Provider: Krystal Philip, ALIREZA) 0913 (Given - Provider: Radha Mccarty, RN) guaiFENesin ER (MUCINEX) extended release tablet 1,200 mg 1,200 mg, oral, 2 times daily, First dose on Thu11/15/21 at 2100, Do not crush, chew, cut, dissolve, open or otherwise manipulate tablet/capsule. 1007 (Given - Provider: Sarahy Rosas, ALIREZA)1945 (Given - Provider: Tim Wade, ALIREZA) 0917 (Given - Provider: Krystal Philip, ALIREZA)2047 (Given - Provider: Tim Wade RN) 0913 (Given - Provider: Radha Mccarty, ALIREZA) insulin glargine (LANTUS, SEMGLEE) 100 unit/mL injection 23 Units 23 Units, subcutaneous, Nightly, First dose (after last modification) on Thu11/16/21 at 2100, Do not hold if NPO. Do not mix with other insulins, Indications: Diabetes Mellitus 2040 (Given - Provider: Tim Wade RN) 2047 (Given - Provider: Tim Wade RN) insulin lispro (HumaLOG, ADMELOG) 100 unit/mL injection 0-4 Units 0-4 Units, subcutaneous, Nightly, First dose on Thu11/15/21 at 2100, Blood glucose mg/dL: 199 or less: No insulin 200-249: add 1 unit 250-299: add 2 units 300-349: add 3 units and notify physician for adjustment of insulin orders. 350-399: add 4 units and notify physician for adjustment of insulin orders. Over 400: Notify physician for adjustment of insulin orders. Do NOT hold for NPO Status, Indications: Diabetes Mellitus 131 (Not Given - Provider: Tim Wade RN - Reason: Order parameters not met)2201 (Not Given - Provider: Tim Wade RN - Reason: Order parameters not met) insulin lispro (HumaLOG, ADMELOG) 100 unit/mL injection 0-5 Units 0-5 Units, subcutaneous, 3 times daily with meals, First dose on Thu11/15/21 at 1845, Blood glucose mg/dL: 149 or less: No insulin 150-199: add 1 unit 200-249: add 2 units 250-299: add 3 units 300-349: add 4 units and notify physician for adjustment of insulin orders. 350-399: add 5 units and notify physician for adjustment of insulin orders. Over 400: Notify physician for adjustment of insulin orders. Do NOT hold for NPO Status, Indications: Diabetes Mellitus 1008 (Given - Provider: Sarahy Rosas RN)1226 (Given - Provider: Sarahy Rosas RN)1702 (Not Given - Provider: Sarahy Rosas RN - Reason: Order parameters not met) 0918 (Not Given - Provider: Krystal Philip RN - Reason: Order parameters not met)1215 (Given - Provider: Krystal Philip RN)1741 (Given - Provider: Krystal Philip RN) 0916 (Not Given - Provider: Radha Mccarty RN - Reason: Order parameters not met)1230 (Given - Provider: Radha Mccarty RN)1807 (Hold - Provider: Radha Mccarty RN - Reason: Order parameters not met) insulin lispro (HumaLOG, ADMELOG) 100 unit/mL injection 6 Units 6 Units, subcutaneous, 3 times daily with meals, First dose (after last modification) on Thu11/18/21 at 1200, If BG greater than or equal to [...] less than 70 mg/dL., Indications: Diabetes Mellitus 1007 (Given - Provider: Sarahy Rosas RN)1225 (Given - Provider: Sarahy Rosas RN)1724 (Given - Provider: Sarahy Rosas RN) 0917 (Given - Provider: Krystal Philip RN)1214 (Given - Provider: Krystal Philip RN)1741 (Given - Provider: Krystal Philip RN) 0914 (Given - Provider: Radha Mccarty RN)1230 (Given - Provider: Radha Mccarty, RN)1806 (Given - Provider: Radha Mccarty RN) pregabalin (LYRICA) capsule 150 mg 150 mg, oral, Nightly, First dose on Thu11/15/21 at 2100 1947 (Given - Provider: Tim Wade RN) 2047 (Given - Provider: Tim Wade RN) risperiDONE (RisperDAL) tablet 2 mg 2 mg, oral, Nightly, First dose on Thu11/15/21 at 2100 1946 (Given - Provider: Tim Wade RN) 2047 (Given - Provider: Tim Wade RN) sodium chloride 0.9% flush 0.5-20 mL 0.5-20 mL, intra-catheter, Every 8 hours scheduled, First dose on Thu11/15/21 at 2200, Flush volume based on line type and size. , Indications: Flushing 0155 (Not Given - Provider: Juan Martinez RN - Reason: Other)0720 (Not Given - Provider: Juan Martinez RN - Reason: Other)1313 (Given - Provider: Sarahy Rosas RN) 0129 (Not Given - Provider: Tim Wade RN - Reason: Other)0642 (Not Given - Provider: Tim Wade RN - Reason: Other)1741 (Given - Provider: Krystal Philip RN)2251 (Not Given - Provider: Tim Wade RN - Reason: Other) 0644 (Not Given - Provider: Tim Wade RN - Reason: Other)1503 (Not Given - Provider: Radha Mccarty RN - Reason: Loss of IV access) PRN Medication Order 11/24/2021 11/25/2021 11/26/2021 acetaminophen (TYLENOL) tablet 650 mg 650 mg, oral, Every 6 hours PRN, 1st line for pain, fever, headaches, Starting on Thu11/15/21 at 1807 dextrose (D10W) 10% bolus 250 mL(Linked Group 1) 250 mL, intravenous, at 1,000 mL/hr, Administer over 15 Minutes, Every 15 min PRN, blood glucose less than 70 mg/dL and UNABLE to swallow/take PO glucose/juice., Starting on Thu11/15/21 at 1807, After treatment for hypoglycemia, recheck BG followed [...] glucose less than 70 mg/dL, Starting on Thu11/15/21 at 1807, If patient is alert and able to [...] unable to take PO glucose/juice., Starting on Thu11/15/21 at 1807, After Glucagon is administered, position patient on [...] vomiting, if not tolerating PO, Starting on Thu11/15/21 at 1807, Indications: Nausea and Vomiting ondansetron ODT (ZOFRAN-ODT) disintegrating tablet 4 mg(Linked Group 2) 4 mg, oral, Every 6 hours PRN, nausea, vomiting, Starting on Thu11/15/21 at 1807, Indications: Nausea and Vomiting polyethylene glycol (MIRALAX) packet 17 g 17 g, oral, Daily PRN, constipation, Starting on Thu11/15/21 at 1807, Indications: constipation ramelteon (ROZEREM) tablet 8 mg 8 mg, oral, Nightly PRN, sleep, Starting on Thu11/15/21 at 1807, Indications: Sleep-Onset Insomnia sodium chloride 0.9% flush 0.5-20 mL 0.5-20 mL, intra-catheter, As needed, line care, Starting on Thu11/15/21 at 1807, Flush volume based on line type and size. Flush before and after each use. , Indications: Flushing Linked Groups Order Group 1: dextrose gel in packet 15 gJump to med 15 g, oral, Every 15 min PRN, low blood sugar, blood glucose less than 70 mg/dL, Starting on Thu11/15/21 at 1807, If patient is alert and able to [...] UNABLE to swallow/take PO glucose/juice., Starting on Thu11/15/21 at 1807, After treatment for hypoglycemia, recheck BG followed [...] 6 hours PRN, nausea, vomiting, Starting on Thu11/15/21 at 1807, Indications: Nausea and Vomiting Or ondansetron (ZOFRAN) injection 4 mgJump to med 4 mg, intravenous, Administer over 2 Minutes, Every 6 hours PRN, nausea, vomiting, if not tolerating PO, Starting on Thu11/15/21 at 1807, Indications: Nausea and Vomiting documented in this encounter Orders Medications Ordered That Flip ht Not Have Been Administered Count Last Ordered Date First Ordered Date acetaminophen (TYLENOL) tablet 650 mg 1 dextrose (D10W) 10% bolus 250 mL 1 11/16/19 dextrose gel in packet 15 g 1 11/15/2021 glucagon injection 1 mg 1 11/15/2021 ondansetron (ZOFRAN) injection 4 mg 1 11/15 ondansetron ODT (ZOFRAN-ODT) disintegrating tablet 4 mg 1 11/15/2021 polyethylene glycol (MIRALAX) packet 17 g 1 11/15/2021 ramelteon (ROZEREM) tablet 8 mg 1 sodium chloride 0.9% flush 0.5-20 mL 1 10/21 Lab Orders Without Results Count Last Ordered D ate First Ordered Date POCT GLUCOSE DEVICE 73 11/26/2021 11/15/19 TROPONIN I HIGH-SENSITIVITY SERIES (BASELINE, 2HR, 4HR, 6HR) 1 11/15/2021 Nursing Count Last Ordered Date First Orde red Date WEIGH PATIENT 1 11/15/2021 Consult Count Last Ordered Date First Orde red Date IP CONSULT TO SOCIAL WORK 1 11/25/2021 Isolation Count Last Ordered Date First Orde red Date INITIATE CONTACT ISOLATION 1 11/16/2021 INITIATE DROPLET ISOLATION 1 11/16/2021 Admission Count Last Ordered Date First Orde red Date ADMIT TO INPATIENT 1 11/15/2021 Discharge Count Last Ordered Date First Orde red Date DISCHARGE PATIENT 1 11/26/2021 CORE MEASURES Count Last Ordered Date First Ord ered Date REASON FOR NO VTE PROPHYLAXIS AT ADMISSION 1 11/15/2021 documented in this encounter Additional Health Concerns Infection Onset Date Last Indicated Resolved Time COVID: Recovered Comment:Added based on recent COVID infection. 08/24/2021 08/26/2021 12/22/2021 3:05 AM C DT COVID: Suspected Comment:11/15/2021 pt is covid recovered 11/15/2021 11/15/2021 11/15/2021 3:32 PM C DT COVID: Suspected 11/15/2021 11/16/2021 11/16/2021 1:45 AM CDT Human metapneumovirus, conta ct + droplet 11/16/2021 11/16/2021 11/30/2021 3:05 AM C DT documented as of this encounter Care Teams Senior C Software Engineer Relationship Specialty Start Date End Date Cherelle Corcoran MD PCP - General Family Medicine 08/30/19 Mark Queen MD Consulting Physician Infectious Diseases 01/10/20 documented as of this encounter
--- OUTSIDE RECORDS SUMMARY | 2024-07-04 04:16 | XMS_ITS | Encounter Summary ---
Author Organization [facility] Address [address] [place] [address] Care Team Providers Care Manufacturing Millwright Name Role Phone Cherelle Corcoran MD Primary Care Pro vider Mark Queen MD Unavailable [phone]- [phone] Xenia Padilla LPN Unavailable [phone] Encounter Details Date Type Department Care Team (Late st Contact Info) Description 09/19/2021 Orders Only [facility] Health Information Management [address] [place] [address] Scanning, Provider Social History Tobacco Use Types [...] attend chur ch or latter day services? Never 09/10/2021 Do you belong to [...] have a drink containing alc ohol? Never 09/06/2021 Average Number of Drinks Not on file 022 Frequency of Binge Drinking Not on file 08/20 Overall Financial Resource Strain (CARDIA) Answe r [...] on file Legal Sex Female 9:03 AM AUTOMOTIVE ALIGNMENT SPECIALIST Gender Identity Female 02/08/2020 6:39 PM CDT Sexual Orientation Not on file documented as of this encounter Plan of Treatment Upcoming Encounters Date Type Department Care Team (Latest Contact Info) Description 07/13/2024 9:00 AM AUTOMOTIVE ALIGNMENT SPECIALIST Hospital Encounter [facility] GI Lab [address] [place] [address] Jaya Grier MD [address] [place] [address] 07/13/2024 9:00 AM AUTOMOTIVE ALIGNMENT SPECIALIST - 07/13/2024 9:30 AM AUTOMOTIVE ALIGNMENT SPECIALIST Surgery [facility] GI Lab [address] [place] [address] Jaya Grier MD [address] [place] [address] ESOPHAGOGASTRODUODENOSCOPY Scheduled Procedures Name Priority Associated Diagnoses Date/Ti me ESOPHAGOGASTRODUODENOSCOPY Anemia, unspecified type Gastritis without bleeding, unspecified chronicity, unspecified gastritis type 07/13/2024 9:00 AM AUTOMOTIVE ALIGNMENT SPECIALIST COLONOSCOPY Iron deficiency anemia due to chronic blood loss documented as of this encounter Procedures Procedure Name Priority Date/Time Associated Diagnosis Comments SCAN - RADIOLOGY/IMAGING 09/19/2021 SCAN - LABS 09/19/2021 documented in this encounter Results * SCAN - LABS (09/19/2021) us Provider Scanning Final Result * SCAN - RADIOLOGY/IMAGING (09/19/2021) Anatomical Region Laterality Modality Other us Provider Scanning Edited Result - Final documented in this encounter Visit Diagnoses Not on filedocumented in this encounter Additional Health Concerns Infection Onset Date Last Indicated Resolved Time COVID: Recovered Comment:Added based on recent COVID infection. 08/24/2021 08/26/2021 12/22/2021 3:05 AM C DT documented as of this encounter Care Teams Manufacturing Millwright Relationship Specialty Start Date End Date Cherelle Corcoran MD PCP - General Family Medicine 08/30/19 Mark Queen MD Consulting Physician Infectious Diseases 01/10/20 Xenia Padilla LPN Java Lead Engineer 09/19/21 09/19/21 documented as of this encounter
--- OUTSIDE RECORDS SUMMARY | 2024-07-04 04:16 | XMS_ITS | Encounter Summary ---
Author Organization [facility] Address [address] [facility] [address] [place] [address] Phone Care Team Providers Care Pin Drafter Operator Name Role Phone Cherelle Corcoran MD Primary Care Pro vider Mark Queen MD Unavailable [phone] Reason for Visit * Consultation (Routine) - Closed Specialty Diagnoses / Procedures Referred By Maryse lama Referred To Contact Endocrinology Diagnoses Type 2 diabetes mellitus with diabetic neuropathy, with long-term current use of insulin (HCC) Cherelle Corcoran MD Phone: tel: fax: [facility] (All Locations) Referral ID Status Reason Start Date Expiration Date V isits Requested Visits Authorized [id number] Closed Specialty Services Required 08/05/2021 09/04/2022 1 1 Encounter Details Date Type Department Care Team (Latest Contact Info) Description 10/01/2021 4:20 PM CDT Office Visit [facility] Endocrinology Metabolism and Lipid [address] 5th [address] [place] [address] Anant Kauffman MD [address] [facility] [id number] [place] [address] Other diabetic neurological complication associated with type 2 diabetes mellitus (HCC) (Primary Dx); Type 2 diabetes mellitus with diabetic neuropathy, with long-term current use of insulin (CMS/HCC) (HCC); Hyperlipidemia associated with type 2 diabetes mellitus (HCC); Stage 3b chronic kidney disease (HCC) [...] on file Legal Sex Female 9:03 AM HIDE WORKER Gender Identity Female 02/08/2020 6:39 PM CDT Sexual Orientation Not on file documented as of this encounter Last Filed Vital Signs Vital Sign Reading Time Taken Comments Blood Pressure 155/70 10/01/2021 4:10 PM CDT Pulse 82 10/01/2021 4:10 PM CDT Temperature 37 ??C (98.6 ??F) 10/01/2021 4:10 PM CDT Respiratory Rate - - Oxygen Saturation - - Inhaled Oxygen Concentration - - Weight 73 kg (161 lb) 10/01/2021 4:10 PM CDT Height 157.5 cm (5' 2 ) 10/01/2021 4:10 PM CDT Body Mass Index 29.45 10/01/2021 4:10 PM CDT documented in this encounter Patient Instructions * Patient Instructions* Anant Kauffman MD - 10/01/2021 4:20 PM CDT For Neuropathy ( available over the counter) Alpha lipoic acid 300 mg 1 tab po twice a day Vitamin B complex 1 tab daily documented in this encounter Ordered Prescriptions Prescription Sig Dispense Quantity Refills Last Filled Start Date End Date flash glucose scanning reader (FreeStyle Madhav 2 [place]) miscIndications:Ty pe 2 diabetes mellitus with diabetic neuropathy, with long-term current use of insulin (HCC) Use to continually monitor glucose 1 each 10/01/2021 3 flash glucose sensor (FreeStyle Madhav 2 Sensor) kitIndications:Typ e 2 diabetes mellitus with diabetic neuropathy, with long-term current use of insulin (HCC) Use to continually monitor glucose, change every 14 days 6 kit 3 10/01/2021 3 documented in this encounter Progress Notes * Anant Kauffman MD - 10/01/2021 4:20 PM CDT Images from the original note were not included. Endocrine Follow Up Patient Visit Subjective Patient is a 70 y.o. female presenting for follow up of Type II DM . Last seen on 08/19/21 HPI: 70 y old female with PMH of Type [...] and humalog 5 units Current regimen lantus 25 units humalog 8 unit with meals + SSI 1:50 for BG > 150 mg/dl and Trulicity 0.75 mg/dl ( restarted 09/24/21) She has been checking her BG 3- 4 times She has neuropathy, on lyrica 150 mg Last eye exam 05/2021 , no DR She denied having any low Bg recently Gained 6 lbs since 08/202109/25/21 S Cr 2 08/08/21 S cr 1.72 [...] what is noted in the HPI Objective Vitals: Vitals BP 155/70 (BP Location: Right arm, Patient Position: Sitting) Pulse 82 Temp 37 ??C (98.6 ??F) (Oral) Ht 157.5 cm (5' 2 ) Wt 73 kg (161 lb) BMI 29.45 kg/m?? Physical exam: General Appearance: Alert, cooperative, [...] 09/10/2021 Lab Results Component Value Date PTH 36.0 02/07/2021 Recent Labs Lab Units 09/25/21 1727 GLUCOSE mg/dL 230* Assessment/Plan: 70 y old female with PMH of Type II DM, HTn,HDL , mood disorder is here with her daughter for follow up of her Diabetes. Type II Dm Type II DM was diagnosed about 30 years ago She used to be on lantus 60 units , Trulicity 4.5 mg and Jardiance 25 mg She was hospitalized between 08/07/21 -- 08/14/21 with fatigue , weakness and acute on chronic renal failure , . During hospitalization , she was on lantus 15 units and humalog 5 units Current regimen lantus 25 units humalog 8 unit with meals + SSI 1:50 for BG > 150 mg/dl and Trulicity 0.75 mg/dl ( restarted 09/24/21) Plan : Her HBA1c today is 7.5 % . Per her glucometer download, her BG readings have improved since starting Trulicity Continue with current regimen She and her daughter want a CGM for better BG monitoring. Placed a sample Madhav in the clinic Asked her to check her BG 4 times/ day and send us a reminder to review her madhav data in 1-2 weeks. Will adjust her insulin doses based on it She also has CKD with albuminuria . [...] 133 Trig 147 HDL 51 LDL 53 On Atorvastatin 40 mg Continue same CKD With microalbuminuria Jardiance on hold 2/2 STEFANO Will consider starting low jardiance at later date( once s creatinine is stable) , given its renal protective role Problem List Cardiac and Vasculature Hyperlipidemia associated with type 2 diabetes mellitus (HCC) Endocrine and Metabolic Type 2 diabetes mellitus with diabetic neuropathy, with long-term current use of insulin (CMS/HCC) ([facility]) Relevant Medications flash glucose sensor (FreeStyle Madhav 2 Sensor) kit flash glucose scanning reader (FreeStyle Madhav 2 [place]) misc Other Relevant Orders POCT hemoglobin A1c Ambulatory referral to [facility] Genitourinary and Reproductive Stage 3b chronic kidney disease (HCC) Neuro Diabetic neuropathy (CMS/HCC) (HCC) - Primary documented in this encounter Plan of Treatment Upcoming Encounters Date Type Department Care Team (Latest Contact Info) Description 07/13/2024 9:00 AM HIDE WORKER Hospital Encounter [facility] GI Lab [address] [place] [address] Jaya Grier MD [address] [facility] [address] [place] [address] 07/13/2024 9:00 AM HIDE WORKER - 07/13/2024 9:30 AM HIDE WORKER Surgery [facility] GI Lab [address] [place] [address] Jaya Grier MD [facility] [address] [place] [address] ESOPHAGOGASTRODUODENOSCOPY Scheduled Procedures Name Priority Associated Diagnoses Date/Ti me ESOPHAGOGASTRODUODENOSCOPY Anemia, unspecified type Gastritis without bleeding, unspecified chronicity, unspecified gastritis type 07/13/2024 9:00 AM HIDE WORKER COLONOSCOPY Iron deficiency anemia due to chronic blood loss documented as of this encounter Procedures Procedure Name Priority Date/Time Associated Diagnosis Comments POCT HEMOGLOBIN A1C Routine 10/01/2021 4 :26 PM CDT Type 2 diabetes mellitus with diabetic neuropathy, with long-term current use of insulin ([facility]) ([facility]) POCT GLUCOSE [id number] Routine 10/01/2021 4: 25 PM CDT Type 2 diabetes mellitus with diabetic neuropathy, with long-term current use of insulin ([facility]) ([facility]) documented in this encounter Results * POCT hemoglobin A1c (10/01/2021 4:26 PM CDT) Hemoglobin A1C, POC 7.5 Blood specimen (specimen) 10/01/2021 4:26 PM CDT Anant Kauffman MD POINT OF CARE TEST ORDERABLE S Final Result * POCT glucose (10/01/2021 4:25 PM CDT) Glucose Blood, POC 186 mg/dL Blood specimen (specimen) 10/01/2021 4:25 PM CDT Anant Kauffman MD POINT OF CARE TEST ORDERABLE S Final Result documented in this encounter Visit Diagnoses Diagnosis Other diabetic neurological complication associated with type 2 diabetes mellitus (HCC)- Primary Type 2 diabetes mellitus with diabetic neuropathy, with long-term current use of insulin (HCC) Hyperlipidemia associated with type 2 diabetes mellitus (HCC) Stage 3b chronic kidney disease (HCC) Anemia, unspecified type Gastritis without bleeding, unspecified chronicity, unspecified gastritis type documented in this encounter Additional Health Concerns Infection Onset Date Last Indicated Resolved Time COVID: Recovered Comment:Added based on recent COVID infection. 08/24/2021 08/26/2021 12/22/2021 3:05 AM C DT documented as of this encounter Care Teams Pin Drafter Operator Relationship Specialty Start Date End Date Cherelle Corcoran MD PCP - General Family Medicine 08/30/19 Mark Queen MD Consulting Physician Infectious Diseases 01/10/20 documented as of this encounter
--- OUTSIDE RECORDS SUMMARY | 2024-07-04 04:16 | XMS_ITS | Encounter Summary ---
Author Organization [facility] Address [address] [place] [address] Care Team Providers Care Shared Services Manager Name Role Phone Cherelle Corcoran MD Primary Care Pro vider Mark Queen MD Unavailable [phone] Encounter Details Date Type Department Care Team (Late st Contact Info) Description 09/21/2021 Orders Only [facility] [place] Health Information Management [address] [place] [address] Scanning, Provider Social History Tobacco [...] you attend chur ch or bahai services? Never 09/10/2021 Do you belong to [...] on file Legal Sex Female 9:03 AM PATIENT FINANCIAL REPRESENTATIVE Gender Identity Female 02/08/2020 6:39 PM CDT Sexual Orientation Not on file documented as of this encounter Plan of Treatment Upcoming Encounters Date Type Department Care Team (Latest Contact Info) Description 07/13/2024 9:00 AM PATIENT FINANCIAL REPRESENTATIVE Hospital Encounter [facility] GI Lab [address] [place] [address] Jaya Grier MD [address] [place] [address] 07/13/2024 9:00 AM PATIENT FINANCIAL REPRESENTATIVE - 07/13/2024 9:30 AM PATIENT FINANCIAL REPRESENTATIVE Surgery [facility] GI Lab [address] [place] [address] Jaya Grier MD [address] [place] [address] ESOPHAGOGASTRODUODENOSCOPY Scheduled Procedures Name Priority Associated Diagnoses Date/Ti me ESOPHAGOGASTRODUODENOSCOPY Anemia, unspecified type Gastritis without bleeding, unspecified chronicity, unspecified gastritis type 07/13/2024 9:00 AM PATIENT FINANCIAL REPRESENTATIVE COLONOSCOPY Iron deficiency anemia due to chronic blood loss documented as of this encounter Procedures Procedure Name Priority Date/Time Associated Diagnosis Comments SCAN - RADIOLOGY/IMAGING 09/21/2021 documented in this encounter Results * SCAN - RADIOLOGY/IMAGING (09/21/2021) Anatomical Region Laterality Modality Other Provider Scanning Final Result documented in this encounter Visit Diagnoses Not on filedocumented in this encounter Additional Health Concerns Infection Onset Date Last Indicated Resolved Time COVID: Recovered Comment:Added based on recent COVID infection. 08/24/2021 08/26/2021 12/22/2021 3:05 AM C DT documented as of this encounter Care Teams Shared Services Manager Relationship Specialty Start Date End Date Cherelle Corcoran MD PCP - General Family Medicine 08/30/19 Mark Queen MD Consulting Physician Infectious Diseases 01/10/20 documented as of this encounter
--- OUTSIDE RECORDS SUMMARY | 2024-07-04 04:16 | XMS_ITS | Encounter Summary ---
Author Organization [facility] Address [address] [place] [address] Care Team Providers Care Fishing Game Warden Name Role Phone Cherelle Corcoran MD Primary Care Pro vider Mark Queen MD Unavailable [phone] Encounter Details Date Type Department Care Team (Late st Contact Info) Description 10/07/2021 Telephone [facility] Primary Care [address] [place] [address] Cherelle Corcoran MD [facility] [address] [place] [address] Social History Tobacco Use Types [...] week 09/10/2021 How often do you attend [facility] or adventism services? Never 09/10/2021 Do you [...] have a drink containing alc ohol? Never 10/07/2021 Average Number of Drinks Not on file 022 Frequency of Binge Drinking Not on file 09/20 Overall Financial Resource Strain (CARDIA) Answe r [...] on file Legal Sex Female 9:03 AM POLYSOMNOGRAPH TECH Gender Identity Female 02/08/2020 6:39 PM CDT Sexual Orientation Not on file documented as of this encounter Miscellaneous Notes * Addendum Note - Sandy Mota MA - 10/08/2021 11:40 AM CDTAddended by: SANDY MOTA on: 10/08/2021 11:40 AM Modules accepted: Orders * Addendum Note - Sandy Mota MA - 10/08/2021 9:22 AM CDTAddended by: SANDY MOTA on: 10/08/2021 09:22 AM Modules accepted: Orders * Telephone Encounter - Sandy Mota MA - 10/08/2021 9:21 AM CDT Referral placed. Pt daughter aware * Telephone Encounter - Cherelle Corcoran MD - 10/07/2021 4:[address] Ok to [address] order * Telephone Encounter - Sandy Mota MA - 10/07/2021 4:32 PM CDT Spoke to pt daughter. She wants to see if we can change the referral back to Anat Pelayo who did the amputation on her toe. She didn't realize she was seeing dr. Kauffman today and was not happy with their care per pt daughter. * Telephone Encounter - Poonam Sharma - 10/07/2021 4:20 PM CDT Patient daughter called regarding referral for Vascular. Daughter/areli cb# [phone] Thank you documented in this encounter Plan of Treatment Upcoming Encounters Date Type Department Care Team (Latest Contact Info) Description 07/13/2024 9:00 AM POLYSOMNOGRAPH TECH Hospital Encounter [facility] GI Lab [address] [place] [address] Jaya Grier MD [address] [place] [address] 07/13/2024 9:00 AM POLYSOMNOGRAPH TECH - 07/13/2024 9:30 AM POLYSOMNOGRAPH TECH Surgery [facility] GI Lab [address] [place] [address] Jaya Grier MD [address] [place] [address] ESOPHAGOGASTRODUODENOSCOPY Scheduled Procedures Name Priority Associated Diagnoses Date/Ti la ESOPHAGOGASTRODUODENOSCOPY Anemia, unspecified type Gastritis without bleeding, unspecified chronicity, unspecified gastritis type 07/13/2024 9:00 AM POLYSOMNOGRAPH TECH COLONOSCOPY Iron deficiency anemia due to chronic blood loss documented as of this encounter Visit Diagnoses Diagnosis Atherosclerosis of ramona artery of both lower extremities with intermittent claudication (HCC)- Primary Anemia, unspecified type Gastritis without bleeding, unspecified chronicity, unspecified gastritis type documented in this encounter Additional Health Concerns Infection Onset Date Last Indicated Resolved Time COVID: Recovered Comment:Added based on recent COVID infection. 08/24/2021 08/26/2021 12/22/2021 3:05 AM C DT documented as of this encounter Care Teams Fishing Game Warden Relationship Specialty Start Date End Date Cherelle Corcoran MD PCP - General Family Medicine 08/30/19 Mark Queen MD Consulting Physician Infectious Diseases 01/10/20 documented as of this encounter
--- OUTSIDE RECORDS SUMMARY | 2024-07-04 04:16 | XMS_ITS | Encounter Summary ---
Author Organization [facility] Address [address] [place] [address] Care Team Providers Care Golf Club Maker Name Role Phone Cherelle Corcoran MD Primary Care Pro vider Mark Queen MD Unavailable [phone] Encounter Details Date Type Department Care Team (Late st Contact Info) Description 10/15/2021 Telephone [facility] Primary Care [address] [facility] [address] [place] [address] Cherelle Corcoran MD [facility] [address] [place] [address] Social History Tobacco Use Types [...] you attend [facility] or catholic services? Never 09/10/2021 Do you belong [...] on file Legal Sex Female 9:03 AM TUTORING MANAGER Gender Identity Female 02/08/2020 6:39 PM CDT Sexual Orientation Not on file documented as of this encounter Miscellaneous Notes * Telephone Encounter - Sandy Mota MA - 10/16/2021 9:51 AM CDT refaxed paperwork again to [facility] * Telephone Encounter - Sandy Mota MA - 10/15/2021 2:59 PM CDT Spoke to Xi from [facility] and advised that this request come from her endo . She will contact pt for that information. Spoke to [facility] and let them know I already faxed over the new script this morning. She stated they didn't have it and would like it refaxed. I advised her that I will do so first thing inthe morning again. * Telephone Encounter - Cherelle Corcoran MD - 10/15/2021 2:04 PM CDT This should go through endocrine, they have a much better chance of getting approved * Telephone Encounter - Tena Roman - 10/15/2021 10:26 AM CDT [facility] medical called requesting last office notes and prescription for Dexcom G6 Gloucose monitor. Fax# * Telephone Encounter - Nikki Vargas - 10/15/2021 8:39 AM CDT Celeste/rep from [facility] is requesting new prescription for continuous glucose monitoring. CB# [phone] documented in this encounter Plan of Treatment Upcoming Encounters Date Type Department Care Team (Latest Contact Info) Description 07/13/2024 9:00 AM TUTORING MANAGER Hospital Encounter [facility] GI Lab [address] [place] [address] Jaya Grier MD [address] [place] [address] [address] [place] [address] 07/13/2024 9:00 AM TUTORING MANAGER - 07/13/2024 9:30 AM TUTORING MANAGER Surgery [facility] GI Lab [address] [place] [address] Jaya Grier MD [address] [place] [address] [address] [place] [address] ESOPHAGOGASTRODUODENOSCOPY Scheduled Procedures Name Priority Associated Diagnoses Date/Ti me ESOPHAGOGASTRODUODENOSCOPY Anemia, unspecified type Gastritis without bleeding, unspecified chronicity, unspecified gastritis type 07/13/2024 9:00 AM TUTORING MANAGER COLONOSCOPY Iron deficiency anemia due to chronic blood loss documented as of this encounter Visit Diagnoses Not on filedocumented in this encounter Additional Health Concerns Infection Onset Date Last Indicated Resolved Time COVID: Recovered Comment:Added based on recent COVID infection. 08/24/2021 08/26/2021 12/22/2021 3:05 AM C DT documented as of this encounter Care Teams Golf Club Maker Relationship Specialty Start Date End Date Cherelle Corcoran MD PCP - General Family Medicine 08/30/19 Mark Queen MD Consulting Physician Infectious Diseases 01/10/20 documented as of this encounter
--- OUTSIDE RECORDS SUMMARY | 2024-07-04 04:16 | XMS_ITS | Encounter Summary ---
Author Organization [facility] Address [address] [place] [address] Care Team Providers Care [facility] Director Name Role Phone Cherelle Corcoran MD Primary Care Pro vider Mark Queen MD Unavailable [phone] Reason for Visit * Reason Comments New Patient Hx right toe amp, juarez ving skin changes on left foot, silverio leg pain * Consultation (Routine) - Closed Specialty Diagnoses / Procedures Referred By Maryse lama Referred To Contact Vascular Surgery Diagnoses Recent skin changes Amputation of toe of right foot (CMS/HCC) (HCC) Cherelle Corcoran MD Phone: tel: fax: [facility] Vascular and Vein Surgery [facility] [place] [address] Phone: tel: fax: Referral ID Status Reason Start Date Expiration Date V isits Requested Visits Authorized [id number] Closed Specialty Services Required 09/30/2021 10/30/2022 12 12 Encounter Details Date Type Department Care Team (Late st Contact Info) Description 10/07/2021 3:00 PM CDT Office Visit [facility] Vascular and Vein Surgery [facility] [place] [address] Jani Kauffman MD [address] [place] [address] Pressure injury of left heel, stage 1 (Primary Dx); Recent skin changes; Amputation of toe of right foot (CMS/HCC) (HCC); Type 2 diabetes mellitus with diabetic neuropathy, with long-term current use of insulin (CMS/HCC) (HCC); Hypertension associated with diabetes (HCC); [...] file Legal Sex Female 9:03 AM ELECTRIC CELL TENDER Gender Identity Female 02/08/2020 6:39 PM CDT Sexual Orientation Not on file documented as of this encounter Last Filed Vital Signs Vital Sign Reading Time Taken Comments Blood Pressure 175/65 10/07/2021 3:21 PM CDT Pulse 72 10/07/2021 3:21 PM CDT Temperature - - Respiratory Rate - - Oxygen Saturation - - Inhaled Oxygen Concentration - - Weight 73 kg (161 lb) 10/07/2021 3:21 PM CDT Height 157.5 cm (5' 2 ) 10/07/2021 3:21 PM CDT Body Mass Index 29.45 10/07/2021 3:21 PM CDT documented in this encounter Progress Notes * Jani Kauffman MD - 10/07/2021 3:00 PM CDT Images from the original note were not included. [facility] Patient ID: Barbara Chakraborty is a 70 y.o. female Visit Date: 10/07/2021 Chief Complaint Chief Complaint Patient presents with ??? New Patient Hx right toe amp, having skin changes on left foot, silverio leg pain HPI Barbara Chakraborty is a 70 y.o. female w/ a history of HTN, HLD dm seen in the office for evaluation of dry hallux ulceration and calluses and a pressure ulcer to the left heel. She has been in out of the hospital over the last couple months with minimal ambulation. The heel wound started while in the hospital. She is diabetic and has neuropathy. She denies any lower extremity cramping pain with ambulation. Past Medical History: Diagnosis Date ??? Arthritis [...] Onset ??? Stomach cancer Father Social History Socioeconomic History ??? Marital status: Single Tobacco Use ??? Smoking status: Never Smoker ??? Smokeless tobacco: Never Used Substance and Sexual Activity ??? Alcohol use: Not Currently ??? Drug use: Never ??? Sexual activity: Defer Social History Narrative Originally From [place] Grew up with her mom and dad. 12th grade - graduated. [employer]. [employer] - none. [employer]. I never worked. Single. Social Determinants of Health Financial Resource Strain: Low Risk ??? Difficulty of Paying Living Expenses: Not hard at all Food Insecurity: No Food Insecurity ??? Worried About Running Out of Food in the Last Year: Never true ??? Ran Out of Food in the Last Year: Never true Transportation Needs: No Transportation Needs ??? Lack of Transportation (Medical): No ??? Lack of Transportation (Non-Medical): No Social Connections: Socially Isolated ??? Frequency of Communication with Friends and Family: More than three times a week ??? Frequency of Social Gatherings with Friends and Family: More than three times a week ??? Attends Mandaeism Services: Never ??? Active Member of Clubs or Organizations: No ??? Attends Club or Organization Meetings: Never ??? Marital Status: Housing Stability: Low Risk ??? Unable to Pay for Housing in the Last Year: No ??? Number of Places Lived in the Last Year: 2 ??? Unstable Housing in the Last Year: No ROS Constitutional: No change in appetite. No recent weight loss. No fevers chills or sweats. HEENT: No trouble swallowing. No tinnitus. Eyes: No visual disturbances Respiratory: No shortness of breath. No cough or sputum production. No wheezing. Cardiovascular: No chest pain. No palpitations. Gastrointestinal: No abdominal pain. No nausea vomiting or diarrhea. Genitourinary: No dysuria. No hematuria. Extremities: No claudication. No rest pain. No lower extremity ulcerations or infections. No significant edema. Musculoskeletal: No joint pains. No back pain. Neurologic: No dizziness. No syncope. No weakness. Skin: No rashes. No discoloration. Hematologic: no bleeding Psychiatric: no anxiety, no behavioral changes, no mood swings PE Constitutional: Alert and oriented HEENT: Head atraumatic and normocephalic Neck is supple No carotid bruits Extraocular movements full, sclerae anicteric Chest: Effort normal. Breath sounds normal. Cardiovascular: S1 and S2 are normal. No murmurs rubs or gallops appreciated. Abdominal: Soft, nontender, no masses. Extremities/Vascular: DP pulses no PT pulses. Musculoskeletal: Normal range of motion. Neurologic: Cranial nerves 2-12 intact. Strength and sensation intact bilaterally. Skin: Warm and dry. Dry ulceration to the left heel as well as calluses to bilateral hallux Psychiatric: Normal mood and affect. Behavior normal. Judgment normal. IMAGING STUDIES Diagnoses and all orders for this visit: Pressure injury of left heel, stage 1 (Primary) Assessment & Plan: Assessment/plan: Superficial ulcer the left heel. Likely pressure ulceration during her hospitalizations recently. Keep offloading. Follow up in 1 week with ABIs and arterial Dopplers to rule out PVD Recent skin changes - Ambulatory referral to Vascular Surgery Amputation of toe of right foot ([facility] - Ambulatory referral to Vascular Surgery Type 2 diabetes mellitus with diabetic neuropathy, with long-term current use of insulin ([facility]) Assessment & Plan: Insulin Hypertension associated with diabetes ([facility]) Assessment & Plan: Coreg Hyperlipidemia associated with type 2 diabetes mellitus ([facility]) Assessment & Plan: Lipitor MD Jani Bueno MD This note was generated in part or in whole with voice recognition software. Voice recognition is usually quite accurate but there are reimbursement specialist errors that can and often occur. All attempts weremade to correct these errors. I apologize for any typographical errors that were not detected and corrected. documented in this encounter Miscellaneous Notes * Assessment & Plan Note - Jani Kauffman MD - 10/07/2021 3:53 PM CDTAssociated Problem(s): Primary hypertension Coreg * Assessment & Plan Note - Jani Kauffman MD - 10/07/2021 3:52 PM CDTAssociated Problem(s): Mixed hyperlipidemia Lipitor * Assessment & Plan Note - Jani Kauffman MD - 10/07/2021 3:52 PM CDTAssociated Problem(s): Type 2 diabetes mellitus with diabetic neuropathy, with long-term current use of insulin (HCC) Insulin * Assessment & Plan Note - Jani Kauffman MD - 10/07/2021 3:52 PM CDTAssociated Problem(s): Toe necrosis (CMS/HCC) (HCC) Assessment/plan: Superficial ulcer the left heel. Likely pressure ulceration during her hospitalizations recently. Keep offloading. Follow up in 1 week with ABIs and arterial Dopplers to rule out PVD documented in this encounter Plan of Treatment Upcoming Encounters Date Type Department Care Team (Latest Contact Info) Description 07/13/2024 9:00 AM ELECTRIC CELL TENDER Hospital Encounter [facility] [address] [place] [address] Jaya Grier MD [address] [place] [address] [address] [place] [address] 07/13/2024 9:00 AM ELECTRIC CELL TENDER - 07/13/2024 9:30 AM ELECTRIC CELL TENDER Surgery [facility] [address] [place] [address] Jaya Grier MD [address] [place] [address] ESOPHAGOGASTRODUODENOSCOPY Scheduled Procedures Name Priority Associated Diagnoses Date/Ti me ESOPHAGOGASTRODUODENOSCOPY Anemia, unspecified type Gastritis without bleeding, unspecified chronicity, unspecified gastritis type 07/13/2024 9:00 AM ELECTRIC CELL TENDER COLONOSCOPY Iron deficiency anemia due to chronic blood loss documented as of this encounter Visit Diagnoses Diagnosis Pressure injury of left heel, stage 1- Primary Recent skin changes Amputation of toe of right foot (CMS/HCC) (HCC) Type [...] Fir st Ordered Date AMB REFERRAL TO VASCULAR SURGERY 1 10/08/19 documented in this encounter Additional Health Concerns Infection Onset Date Last Indicated Resolved Time COVID: Recovered Comment:Added based on recent COVID infection. 08/24/2021 08/26/2021 12/22/2021 3:05 AM C DT documented as of this encounter Care Teams [facility] Director Relationship Specialty Start Date End Date Cherelle Corcoran MD PCP - General Family Medicine 08/30/19 Mark Queen MD Consulting Physician Infectious Diseases 01/10/20 documented as of this encounter
--- OUTSIDE RECORDS SUMMARY | 2024-07-04 04:16 | XMS_ITS | Encounter Summary ---
Author Organization [facility] Address [address] [place] [address] Care Team Providers Care Aemt Name Role Phone Cherelle Corcoran MD Primary Care Pro vider Mark Queen MD Unavailable [phone] Reason for Referral * Consultation (Routine) - Closed Specialty Diagnoses / Procedures Referred By Contflex t Referred To Contact Vascular Surgery Diagnoses Recent skin changes Amputation of toe of right foot (CMS/HCC) (HCC) Cherelle Corcoran MD Phone: tel: fax: [facility] Vascular and Vein Surgery [address] [place] [address] Phone: tel: fax: Referral ID Status Reason Start Date Expiration Date V isits Requested Visits Authorized [id number] Closed Specialty Services Required 09/30/2021 10/30/2022 12 12 Question Answer Please select the performing region: [facility] [[id number]] Please select the performing department[facility] [[id number][facility] # of visits: 1 Comments Uncontrolled diabetes mellitus, history of osteomyelitis s/p amputation with recent peripheral edema. Please evaluate for PVD Reason for Visit * Reason Comments Follow-up Released from hospit al Thursday DX pneumonia and sepsis Encounter Details Date Type Department Care Team ([facility] st Contact Info) Description 09/25/2021 3:30 PM CDT Office Visit [facility] Primary Care [address] [place] [address] [address] [place] [address] Cherelle Corcoran MD [address] [place] [address] [address] [place], [place] [id number] Hospital-acquired pneumonia (Primary Dx); Wheezing; Stage 3b chronic kidney disease (HCC); Anemia due to chronic kidney disease, unspecified CKD stage; Type 2 diabetes mellitus with diabetic neuropathy, with long-term current use of insulin (CMS/HCC) (HCC); Hypertension associated with diabetes (HCC); Amputation of toe of right foot (CMS/HCC) (HCC); Recent skin changes Social History Tobacco Use Types Packs/Day Years [...] week 09/10/2021 How often do you attend up health system or scientologist services? Never 09/10/2021 Do you [...] Average Number of Drinks Not on file 03/18/2 022 Frequency of Binge Drinking Not on [...] on file Legal Sex Female 9:03 AM TRANSPLANT IMMUNOLOGIST Gender Identity Female 02/08/2020 6:39 PM CDT Sexual Orientation Not on file documented as of this encounter Last Filed Vital Signs Vital Sign Reading Time Taken Comments Blood Pressure 130/66 09/25/2021 3:48 PM CDT Pulse 70 09/25/2021 3:48 PM CDT Temperature 36.8 ??C (98.2 ??F) 09/25/2021 3:48 PM CD T Respiratory Rate 20 09/25/2021 3:48 PM CDT Oxygen Saturation 97% 09/25/2021 3:48 PM CDT Inhaled Oxygen Concentration - - Weight 73.7 kg (162 lb 8 oz) 09/25/2021 3:48 PM CDT Height 157.5 cm (5' 2 ) 09/25/2021 3:48 PM CDT Body Mass Index 29.72 09/25/2021 3:48 PM CDT documented in this encounter Patient Instructions * Patient Instructions* Cherelle Corcoran MD - 09/25/2021 3:30 PM CDT Patient Education Chronic Kidney Disease Diet [employer] WORKER: A chronic kidney disease diet limits protein, phosphorus, sodium, and potassium. Liquids may also need to be limited in later stages of chronic kidney disease. This diet can help slow down the rate of damage to your kidneys. Your diet may changer fixer time as your health condition changes. You may also need to make other diet changes if you have other health problems, such as diabetes. Diet changes: There are 5 stages of chronic kidney disease. The diet changes you need to make are based on your stage of kidney disease. Work with your dietitian or healthcare provider to plan meals that are right for you. You may need any of the following: ?? Limit protein in all stages of kidney disease. Limit the portion sizes of protein you eat to limit the amount of work your kidneys have to do. Foods that are high in protein are meat, poultry (chicken and turkey), fish, eggs, and dairy (milk, cheese, yogurt). Your healthcare provider will tell you how much protein to eat each day. ?? Limit sodium if you have high blood pressure. Limit your sodium intake to less than 2,300 milligrams (mg) each day. Ask your dietitian or healthcare provider how much sodium you can have each day.The amount of sodium you should have depends on your stage of kidney disease. Table salt, canned foods, soups, salted snacks, and processed meats, like deli meats and sausage, are high in sodium. ?? Limit the amount of phosphorus you eat. Your kidneys cannot get rid of extra phosphorus that builds up in your blood. This may cause your bones to lose calcium and weaken. Foods that are high in phosphorus are dairy products, beans, peas, nuts, and whole grains. Phosphorus is also found in cocoa, beer, and cola drinks. Your healthcare provider will tell you how much phosphorus you can have each day. ?? Limit potassium if your potassium blood levels are too high. Your dietitian or healthcare provider will tell you if you need to limit potassium. Potassium is found in fruits and vegetables. ?? Limit liquids as directed. Your healthcare provider may recommend that you limit liquids in stages 4 and 5 of kidney disease. If your body retains fluids, you will have swelling and fluid may build up in your lungs. This can cause other health problems, such as shortness of breath. Foods you may include: Your dietitian will tell you how many servings you can have from each of thefood groups below. The approximate amount of these nutrients is listed next to each food group. Read the food label to find the exact amount. ?? Bread, cereal, and grains: These foods contain about 80 calories, 2 grams (g) of protein, 150 mgof sodium, 50 mg of potassium, and 30 mg of phosphorus. ?? 1 slice (1 ounce) of bread (Colombian, Irish, raisin, light rye, or sourdough white), small dinner roll, or 6-inch tortilla ? of a hamburger bun, hot dog bun, or Vietnamese muffin or ?? of a bagel ?? 1 cup of unsweetened cereal or ?? cup of cooked cereal, such as cream of wheat ?? ? cup of cooked pasta (noodles, macaroni, or spaghetti) or rice ?? 4 (2-inch) unsalted crackers or 3 squares of teddy crackers ?? 3 cups of air-popped, unsalted popcorn ? ounce of unsalted pretzels ?? Vegetables: A serving of these foods contains about 30 calories, 2 g of protein, 50 mg of sodium, and 50 mg of phosphorus. ?? Low potassium (less than 150 mg): ? cup cooked green beans, cabbage, cauliflower, beets, or corn ?? 1 cup raw cucumber, endive, alfalfa sprouts, cabbage, cauliflower, or watercress ?? 1 cup of all types of lettuce ? cup cooked or ?? cup raw mushrooms or onions ?? 1 cup cooked eggplant ?? Medium potassium (150 to 250 mg): ?? 1 cup raw broccoli, celery, or zucchini ? cup cooked asparagus, broccoli, celery, green peas, summer squash, zucchini, or peppers ?? 1 cup cooked kale or turnips ?? Fruits: A serving of these foods contains about 60 calories, 0 g protein, 0 mg sodium, and 150 mg of phosphorus. Each serving is ?? cup, unless another amount is given. ?? Low potassium (less than 150 mg): ?? Apple juice, applesauce, or 1 small apple ?? Blueberries ?? Cranberries or cranberry juice cocktail ?? Fresh or canned pears (light syrup or packed in water) ?? Grapes or grape juice ?? Canned peaches (light syrup or packed in water) ?? Pineapple or strawberries ?? 1 tangerine ?? Watermelon ?? Medium potassium (150 to 250 mg): ?? Fresh peaches or pears ?? Cherries ?? Cantaloupe, zhou, or papaya ?? Grapefruit or grapefruit juice ?? Meat, poultry, and fish: These foods have about 75 calories, 7 g of protein, an average of 65 mgof sodium, 115 mg of potassium, and 70 mg of phosphorus. Do not use salt to prepare these foods. ?? 1 ounce of cooked beef, pork, or poultry ?? 1 ounce of any fresh or frozen fish, lobster, shrimp, crab, clams, tuna, unsalted canned salmon,or unsalted sardines ?? Other protein foods: These foods have about 90 calories, 7 g of protein, an average of 100 mg ofsodium, 100 mg of potassium, and 120 mg of phosphorus. ?? 1 large whole egg or ?? cup of low-cholesterol egg substitute ?? 1 ounce of cheese ? cup of cottage cheese or tofu ?? 1 ounce of unsalted nuts or 2 tablespoons of peanut butter ?? Fats: These foods have very little protein and about 45 calories, 55 milligrams of sodium, 10 milligrams of potassium, and 5 milligrams of phosphorus. Include healthy fats, such as unsaturated fats, which are listed below. ?? 1 teaspoon margarine or mayonnaise ?? 1 teaspoon oil (safflower, sunflower, corn, soybean, olive, peanut, canola) ?? 1 tablespoon oil-based salad dressing (such as Irish) or 2 tablespoons mayonnaise-based salad dressing (such as ranch) Foods to limit or avoid: ?? Starches: The following foods have higher amounts of sodium, potassium, or phosphorus. ?? Biscuits, muffins, pancakes, and waffles ?? Cake and cornbread from boxed mixes ?? Oatmeal and whole-wheat cereals ?? Salted pretzel sticks or rings and sandwich cookies ?? Meat and protein foods: The following are high in sodium and phosphorus. ?? Deli-style meat, such as roast beef, ham, and turkey ?? Canned salmon and sardines ?? Processed cheese, such as Vietnamese cheese and cheese spreads ?? Smoked or cured meat, such as corned beef, nobles, ham, hot dogs, and sausage ?? Legumes: These foods have about 90 calories, 6 g of protein, less than 10 mg of sodium, 250 mg of potassium, and 100 mg of phosphorus. ?? ? cup of black beans, red kidney beans, black-eye peas, garbanzos, and lentils ? cup of green or mature soybeans ?? Dairy: The following foods have about 8 g of protein, an average of 120 mg of sodium, 350 mg of potassium, and 220 mg of phosphorus. ?? 1 cup of milk (fat-free, low-fat, whole, buttermilk, or chocolate milk) ?? 1 cup of low-fat plain or sugar-free yogurt or ice cream ? cup of pudding or custard ?? Nondairy milk substitutes: These foods have 75 calories, 1 gram of protein, and an average of 40mg of sodium, 60 mg of potassium, and 60 mg of phosphorus. A serving is ?? cup of almond, rice, or soy milk, or nondairy creamer. ?? Vegetables: The following vegetables are high in potassium. Each serving has more than 250 mg ofpotassium. A serving is ?? cup, unless another amount is given. ?? Artichoke or ?? of a medium avocado ?? Liberal sprouts, beets, chard, pito or mustard greens ?? Potatoes, sweet potatoes, pumpkin, and yams ? cup of okra ?? Raw tomatoes and low-sodium tomato juice, or tomato sauce ?? Winter squash, cooked asparagus, and cooked spinach ?? Fruit: The following fruits are high in potassium. Each serving has more than 250 mg of potassium. ?? 3 fresh apricots ?? 1 small nectarine (2 inches across) ?? 1 small orange and ?? cup of orange juice ? cup of dates ?? ? of a small honeydew melon ?? 1 six-inch banana ? cup of prune juice or prunes and kiwifruit ?? Fats: Limit unhealthy fats, such as saturated fats, which are listed below. ?? Butter, lard, cream cheese, whipped cream, and sour cream ?? Powdered coffee creamer ?? Other: The following foods are high in sodium. ?? Frozen dinners, soups, and fast foods, such as hamburgers and pizza (see the food label for serving sizes) ?? Table salt and seasoned salts, such as onion or garlic salt ?? Barbecue sauce, ketchup, mustard, soy sauce, steak sauce, and teriyaki sauce Contact your healthcare provider if: ?? You are gaining or losing weight very quickly. ?? You have shortness of breath. ?? You have nausea and are vomiting. ?? You feel very weak and tired. ?? You are having trouble following the chronic kidney disease diet. ?? 2017 [employer] Information is for End User's use only and may not be sold, redistributed or otherwise used for commercial purposes. All illustrations and images included in CareNotes?? are the copyrighted property of [employer] or [employer]. The above information is an medicaid specialist only. It is not intended as medical advice for individual conditions or treatments. Talk to your doctor, nurse or pharmacist before following any medical regimen to see if it is safe and effective for you. documented in this encounter Ordered Prescriptions Prescription Sig Dispense Quantity Refills Last Filled Start Date End Date carvediloL (COREG) 3.125 mg tabletIndications: Hypertension associated with diabetes (HCC) Take 1 tablet (3.125 mg total) by mouth 2 (two) times a day with meals 60 tablet 1 09/25/2021 2 furosemide (LASIX) 20 mg tablet Take 1 tablet (20 mg total) by mouth 2 (two) times a day 60 tablet 1 09/25/2021 2 albuterol HFA (ProAir HFA) 90 mcg/actuation inhalerIndications :Wheezing Inhale 2 puffs every 4 (four) hours as needed for wheezing or shortness of breath 8.5 g 09/25/2021 3 documented in this encounter Progress Notes * Cherelle Corcoran MD - 09/25/2021 3:30 PM CDT Images from the original [...] and has also been reviewed with patient and/or caregiver. I have noted any changes. Admission Date: 09/19/21 Discharge Date: 09/23/21 Date of Initial Post-discharge Interactive Contact: 09/25 Complexity of Medical Decision Making: high Metabolic Lab Results: Body mass index is 29.72 kg/m??. Glucose: Glucose Date Value Ref Range Status 09/25/2021 230 (H) 70 - 199 mg/dL Final Comment: [...] revised 2017. Testing performed by: [facility], [address] [place] [address], [place]., [address] Lab Results Component Value Date WBC 11.0 (H) 09/25/2021 HGB 7.7 (L) 09/25/2021 HCT 25.0 (L) 09/25/2021 MCV 94.7 09/25/2021 Lab Results Component Value Date GLUCOSE 230 (H) 09/25/2021 CALCIUM 9.6 09/25/2021 SODIUM 143 09/25/2021 POTASSIUM 5.0 (H) 09/25/2021 CO2 24 09/25/2021 CHLORIDE 107 09/25/2021 BUNSER 55 (H) 09/25/2021 CREATININE 2.00 (H) 09/25/2021 Major Procedures and Tests: Major Procedures and Tests Performed During Inpatient Stay: Studies Pending at Discharge (Includes Lab and Radiology) None Interval History: Recently hospitalized at [facility] for STEFANO and volume overload. After discharge the next day daughter found her on the floor with fecal incontinence and difficulty using her legs. Taken to [facility] and found to have pneumonia with sepsis (hospital acquired). D/c on zpack and cefdinir. Advised 24h care, but currently only approved for 11h/week through [facility], daughter is working on getting more approved. Has cristela. Volume overload: ECHO within normal limits. Proteinuria present. Thought to be 2/2 hypertension/nephropathy. Goal weight 155 from [facility]. d/c on lasix on 20mg twice a day & coreg 3.125mg twice a day Diabetes mellitus: on 8 units humalog three times a day + SSI (+1 units q50 over 150) & 25 units lantus nightly. Also still on trulicity. Has appointment with endocrine next week Anemia: needs EGD/colonoscopy Problem Hypertension Associated With Diabetes ([facility]) Type 2 diabetes mellitus with diabetic neuropathy, with long-term current use of insulin ([facility]) ([facility]) Current Outpatient Medications Medication Sig Dispense Refill ??? acetaminophen (TYLENOL) 325 mg tablet Take 2 tablets (650 mg total) by mouth every 4 (four) hours as needed for pain 60 tablet 0 ??? atorvastatin (LIPITOR) 40 mg tablet Take 1 tablet (40 mg total) by mouth daily 90 tablet 3 ??? BD Arlyn 2nd Gen Pen Needle 32 gauge x 5/32 needle USE TO INJECT BASAGLAR EVERY NIGHT AT BEDTIME ??? blood pressure monitor kit Check BP as instructed 1 kit 0 ??? capsaicin (ZOSTRIX) 0.025 % cream Apply topically 2 (two) times a day 60 g ??? conner.stocking,thigh,reg,med misc Wear as much as possible 2 each 1 ??? dulaglutide (TRULICITY) 0.75 mg/0.5 mL pen injector Inject 0.5 mL (0.75 mg total) under the skin once a week 2 mL 0 ??? famotidine (PEPCID) 20 mg tablet Take 1 tablet (20 mg total) by mouth daily 30 tablet 11 ??? ferrous sulfate 325 mg (65 mg of elemental iron) tablet Take 1 tablet (325 mg total) by mouth daily with breakfast 30 tablet 11 ??? glucose 4 gram chewable tablet Take [...] day with meals 15 mL 0 ??? insulin lispro (HumaLOG, ADMELOG) 100 unit/mL pen for injection Inject 1-4 Units under the skin3 (three) times a day with meals (1 unit for every 50 mg/dL blood glucose greater than 150 mg/dL upto max 4 units) Refer to After Visit Summary for Sliding Scale Insulin Instructions. 3.6 mL 0 ??? insulin lispro (HumaLOG, ADMELOG) 100 unit/mL pen for injection Inject 8 Units under the skin 3(three) times a day with meals 7.2 mL 0 ??? lancets [facility] Check blood sugar up to 3 times a day 100 each 3 ??? lidocaine (LIDODERM) 5 % Place 1 patch on the skin daily Apply to painful area 12 hours per day, remove for 12 hours. 90 patch 1 ??? miscellaneous medical supply (Blood Pressure Cuff) [facility] Use to check blood pressure daily 1 each 1 ??? multivitamin with minerals tablet Take 1 tablet by mouth daily ??? OneTouch Verio test strips strip TEST 3 TO 4 TIMES DAILY 400 each 1 ??? polyethylene glycol (MIRALAX) 17 gram packet Take 1 packet (17 g total) by mouth daily ??? pregabalin (LYRICA) 150 mg capsule TAKE 1 CAPSULE(150 MG) BY MOUTH EVERY NIGHT 30 capsule 2 ??? risperiDONE (RisperDAL) 2 mg tablet Take 1 tablet (2 mg total) by mouth nightly 30 tablet 11 ??? syringe with needle, insulin (INSULIN SYRINGE-NEEDLE U-100 [facility]) 3 times a day ??? albuterol HFA (ProAir HFA) 90 mcg/actuation inhaler Inhale 2 puffs every 4 (four) hours as needed for wheezing or shortness of breath 8.5 g 0 ??? carvediloL (COREG) 3.125 mg tablet Take 1 tablet (3.125 mg total) by mouth 2 (two) times a day with meals 60 tablet 1 ??? furosemide (LASIX) 20 mg tablet TAKE 1 TABLET(20 MG) BY MOUTH TWICE DAILY 180 tablet 0 No current facility-administered medications for this visit. Review of Systems: Review of Systems Respiratory: Positive for wheezing. Musculoskeletal: Positive for arthralgias. Physical Exam: BP 130/66 (BP Location: Left arm, Patient Position: Sitting) Pulse 70 Temp 36.8 ??C (98.2 ??F) (Temporal) Resp 20 Ht 157.5 cm (5' 2 ) Wt 73.7 kg (162 lb 8 oz) SpO2 97% BMI 29.72 kg/m?? Physical Exam Gen: NAD, comfortable, appears as stated age Eyes: no conjunctival injection, EOMI ENMT: external ears symmetric CV: RRR without murmur, rub, gallop. Pulm: good respiratory effort, CTAB no rhonchi, rales, or wheezes Skin: bilateral feet dry skin with dark area by R big toe, warm and dry Ext: Mild lower extremity edema MSK/Neuro: symmetric limb movement, using wheelchair for ambulation, TTP L plantar fascia insertion Psych: alert and oriented to person/place Assessment/Plan Diagnoses and all orders for this visit: Hospital-acquired pneumonia (Primary) Comments: Reviewed hospital d/c, imaging and labs AFVSS, lungs CTAB today Complete abx Wheezing Comments: Not present on my exam, but present at home per daughter, will give albuterol prn Orders: - albuterol HFA (ProAir HFA) 90 mcg/actuation inhaler; Inhale 2 puffs every 4 (four) hours as needed for wheezing or shortness of breath Stage 3b chronic kidney disease ([facility]) Comments: Stable Orders: - Basic metabolic panel; Future Anemia due to chronic kidney disease, unspecified CKD stage Comments: Stable Schedule for EGD/colonoscopy to r/o blood loss from GI tract Orders: - Ambulatory referral to [facility]/GI Procedures; Future - CBC with auto differential; Future Type 2 diabetes mellitus with diabetic neuropathy, with long-term current use of insulin ([facility]) ([facility]) Assessment & Plan: Continue 25 units lantus nightly, 8 units humalog TIDAC and trulcity Following with endocrine, upcoming appointment Hypertension associated with diabetes ([facility]) Assessment & Plan: Blood pressure at goal, continue coreg 3.125mg twice a day Orders: - carvediloL (COREG) 3.125 mg tablet; Take 1 tablet (3.125 mg total) by mouth 2 (two) times a day with meals Amputation of toe of right foot ([facility]) ([facility]) - Ambulatory referral to Vascular Surgery; Future Recent skin changes - Ambulatory referral to Vascular Surgery; Future Coordination of Home care services and follow-up with specialist appointments confirmed. Instructions have been provided to and reviewed with the patient/care manager prior to discharge. Cherelle Corcoran MD My total encounter time on 09/25/2021 was 45 minutes which was spent in the activities documented in the note. This includes time spent prior to the visit and after the visit in direct care of the patient. This time does not include time spent in any separately reportable services. documented in this encounter Miscellaneous Notes * Assessment & Plan Note - Cherelle Corcoran MD - 09/30/2021 6:21 AM CDTAssociated Problem(s): Primary hypertension Blood pressure at goal, continue coreg 3.125mg twice a day * Assessment & Plan Note - Cherelle Corcoran MD - 09/30/2021 6:18 AM CDTAssociated Problem(s): Type 2 diabetes mellitus with diabetic neuropathy, with long-term current use of insulin (HCC) Continue 25 units lantus nightly, 8 units humalog TIDAC and trulcity Following with endocrine, upcoming appointment documented in this encounter Plan of Treatment Upcoming Encounters Date Type Department Care Team (Latest Contact Info) Description 07/13/2024 9:00 AM TRANSPLANT IMMUNOLOGIST Hospital Encounter [facility] [address] [place] [address] Jaya Grier MD [facility] [address] [place] [id number] 07/13/2024 9:00 AM TRANSPLANT IMMUNOLOGIST - 07/13/2024 9:30 AM TRANSPLANT IMMUNOLOGIST Surgery [facility] [address] [place] [address] Jaya Grier MD [address] [facility] [address] [place] [id number] ESOPHAGOGASTRODUODENOSCOPY Scheduled Procedures Name Priority Associated Diagnoses Date/Ti me ESOPHAGOGASTRODUODENOSCOPY Anemia, unspecified type Gastritis without bleeding, unspecified chronicity, unspecified gastritis type 07/13/2024 9:00 AM TRANSPLANT IMMUNOLOGIST COLONOSCOPY Iron deficiency anemia due to chronic blood loss Scheduled Referrals Name Type Priority Associated Diagnoses Order Schedule Ambulatory referral to Vascular Surgery Outpatient Referral Routine Recent skin changes Amputation of toe of right foot ([facility]/HCC) (HCC) Expected: 10/14/2021 (Approximate), Expires: 09/30/2022 documented as of this encounter Results * (ABNORMAL) CBC with auto differential (09/25/2021 5:27 PM CDT) [facility] Signature WBC 11.0(H) 3.8 - 9.9 K/cumm NILSA Comment:Testing performed by : [address] [address] Hgb 7.7(L) 11.9 - 15.5 g/dL NILSA Comment:Testing performed by : [address] [address] Hct 25.0(L) 35.6 - 45.5 % NILSA Comment:Testing performed by : [address] [address] Plt 330 150 - 400 K/cumm NILSA Comment:Testing performed by : [address] [address] MPV 10.9 9.1 - 12.3 fL NILSA Comment:Testing performed by : [address] [address] RBC 2.64(L) 3.90 - 5.20 M/cumm NILSA Comment:Testing performed by : [address] [address] MCV 94.7 81.3 - 96.4 fL NILSA Comment:Testing performed by : [address] [address] MCH 29.2 27.1 - 33.3 pg NILSA Comment:Testing performed by : [address] [address] MCHC 30.8(L) 32.3 - 35.7 g/dL NILSA Comment:Testing performed by : [address] [address] RDW CV 15.8(H) 11.1 - 14.9 % NILSA Comment:Testing performed by : [address] [address] RDW SD 54.5(H) 35.7 - 48.1 fL NILAS Comment:Testing performed by : [address] [address] NRBC abs 0.00 0.00 - 0.01 K/cumm NILSA RODRIGES Comment:Testing performed by : [address] [address] Blood 09/25/2021 5:27 PM CDT 09/25/2021 5:48 PM CDT us Cherelle Corcoran MD LAB BLOOD ORDERAB LES Final Result [facility] [place] [address] * (ABNORMAL) Basic metabolic panel (09/25/2021 5:27 PM CDT) Sodium 143 135 - 145 mmol/L NILSA Comment:Testing performed by : [address] [address] Potassium, pl 5.0(H) 3.3 - 4.9 mmol/L NILSA Comment:Testing performed by : [address] [address] Chloride 107 97 - 110 mmol/L NILSA Comment:Testing performed by : [address] [address] CO2 24 22 - 32 mmol/L NILSA Comment:Testing performed by : [address] [address] Anion gap 12 2 - 15 mmol/L NILSA Comment:Testing performed by : [address] [address] BUN 55(H) 8 - 25 mg/dL NILSA Comment:Testing performed by : [address] [address] Creatinine 2.00(H) 0.60 - 1.10 mg/dL NILSA Comment:Testing performed by : [address] [address] Glucose 230(H) 70 - 199 mg/dL NILSA RODRIGES Comment: [...] last revised 2017. Testing performed by: [address] [address] Calcium 9.6 8.5 - 10.3 mg/dL NILSA Comment:Testing performed by : [facility], [address] [place] [address]., [address] Blood 09/25/2021 5:27 PM CDT 09/25/2021 5:48 PM CDT us Cherelle Corcoran MD LAB BLOOD ORDERAB LES Final Result Performing Organization Address City/State/[facility] Co de Phone Number NILSA [address]955 [facility] Department [place] [address] documented in this encounter Visit Diagnoses Diagnosis Hospital-acquired pneumonia- Primary Pneumonia, organism unspecified Wheezing Stage 3b chronic kidney disease (HCC) Anemia due to chronic kidney disease, unspecified CKD stage Type 2 diabetes mellitus with diabetic neuropathy, with long-term current use of insulin (HCC) Hypertension associated with diabetes (HCC) Unspecified essential hypertension Amputation of toe of right foot (CMS/HCC) (HCC) Recent skin changes Anemia, unspecified type Gastritis without bleeding, unspecified chronicity, unspecified gastritis type documented in this encounter Discontinued Medications Medication Sig Discontinue Reason Start Date End Da te furosemide (LASIX) 40 mg tablet Take 1 tablet (40 mg total) by mouth 2 (two) times a day Reorder 09/18/2021 09/25/2021 carvediloL (COREG) 12.5 mg tablet Take 1 tablet (12.5 mg total) by mouth 2 (two) times a day with meals Reorder 09/18/2021 09/25/2021 amLODIPine (NORVASC) 10 mg tablet Take 10 mg by mouth daily Alternate therapy 09/25/2021 documented as of this encounter Additional Health Concerns Infection Onset Date Last Indicated Resolved Time COVID: Recovered Comment:Added based on recent COVID infection. 08/24/2021 08/26/2021 12/22/2021 3:05 AM C DT documented as of this encounter Care Teams Aemt Relationship Specialty Start Date End Date Cherelle Corcoran MD PCP - General Family Medicine 08/30/19 Mark Queen MD Consulting Physician Infectious Diseases 01/10/20 documented as of this encounter
--- OUTSIDE RECORDS SUMMARY | 2024-07-04 04:16 | XMS_ITS | Encounter Summary ---
Author Organization [facility] Address [address] [facility] [address] [place] [address] Care Team Providers Care Legislative Aide Name Role Phone Cherelle Corcoran MD Primary Care Pro vider Mark Queen MD Unavailable [phone] Sarahy Schmidt PHOTOGRAPHER Unavailable Encounter Details Date Type Department Care Team (Late st Contact Info) Description 11/29/2021 Telephone [facility] Nephrology [address] [facility] [address] [place] [address] Markie Ryan MD [address] [facility] [address] [place] [address] Social History Tobacco Use Types [...] on file Legal Sex Female 9:03 AM LINING BRUSHER Gender Identity Female 02/08/2020 6:39 PM CDT Sexual Orientation Not on file documented as of this encounter Miscellaneous Notes * Telephone Encounter - Donna Dwyer - 11/29/2021 1:11 PM CDT Spoke with Areli Jimenez. She voiced her understanding regarding follow up. I faxed orders for labs to [phone][facility] * Telephone Encounter - Markie Ryan MD - 11/29/2021 1:05 PM CDT Records reviewed, can we please have her get a bmp, cbc and iron panel and will adjust visit if needed. thanks * Telephone Encounter - Donna Dwyer - 11/29/2021 10:16 AM CDT The daughter called saying she was just discharged from [place] and is now at [facility] for rehab. She has an appt scheduled with you in January. Did you want to see her sooner? Also any labs? documented in this encounter Plan of Treatment Upcoming Encounters Date Type Department Care Team (Latest Contact Info) Description 07/13/2024 9:00 AM LINING BRUSHER Hospital Encounter [facility] GI Lab [address] [place] [address] Jaya Grier MD [address] [place] [address] 07/13/2024 9:00 AM LINING BRUSHER - 07/13/2024 9:30 AM LINING BRUSHER Surgery [facility] GI Lab [address] [place] [address] Jaya Grier MD [address] [facility] [address] [place] [address] ESOPHAGOGASTRODUODENOSCOPY Scheduled Orders Name Type Priority Associated Diagnoses Orde r Schedule Basic metabolic panel Lab Routine Stage 3b chronic kidney disease (HCC) Expected: 11/29/2021, Expires: 11/29/2022 CBC with auto differential Lab Routine Stage 3b chronic kidney disease (HCC) Expected: 11/29/2021, Expires: 11/29/2022 Iron profile w/ IBC Lab Routine Stage 3b chronic kidney disease (HCC) Expected: 11/29/2021, Expires: 11/29/2022 Scheduled Procedures Name Priority Associated Diagnoses Date/Ti me ESOPHAGOGASTRODUODENOSCOPY Anemia, unspecified type Gastritis without bleeding, unspecified chronicity, unspecified gastritis type 07/13/2024 9:00 AM LINING BRUSHER COLONOSCOPY Iron deficiency anemia due to chronic [...] 08/24/2021 08/26/2021 12/22/2021 3:05 AM C DT Human metapneumovirus, conta ct + droplet 11/16/2021 11/16/2021 11/30/2021 3:05 AM C DT documented as of this encounter Care Teams Legislative Aide Relationship Specialty Start Date End Date Cherelle Corcoran MD PCP - General Family Medicine 08/30/19 Mark Queen MD Consulting Physician Infectious Diseases 01/10/20 Sarahy Schmidt, PHOTOGRAPHER [address] [place] [address] [address] [place] [address] [employer] 11/27/21 12/25/21 documented as of this encounter
--- OUTSIDE RECORDS SUMMARY | 2024-07-04 04:16 | XMS_ITS | Encounter Summary ---
Author Organization [facility] Address [address] [place] [address] Care Team Providers Care Major Gifts Officer Name Role Phone Cherelle Corcoran MD Primary Care Pro vider Mark Queen MD Unavailable [phone] Encounter Details Date Type Department Care Team (Late st Contact Info) Description 09/25/2021 5:20 PM CDT Lab [facility] [address] [place] [address] Anemia due to chronic kidney disease, unspecified CKD stage; Stage 3b chronic kidney disease (HCC); Acute renal failure superimposed on stage 4 chronic kidney disease, unspecified acute renal failure type (HCC) Social History Tobacco Use Types Packs/Day [...] week 09/10/2021 How often do you attend [facility] or pentecostal services? Never 09/10/2021 Do you belong to [...] on file Legal Sex Female 9:03 AM MINT MACHINE OPERATOR Gender Identity Female 02/08/2020 6:39 PM CDT Sexual Orientation Not on file documented as of this encounter Plan of Treatment Upcoming Encounters Date Type Department Care Team (Latest Contact Info) Description 07/13/2024 9:00 AM MINT MACHINE OPERATOR Hospital Encounter [facility] GI Lab [address] [place] [address] Jaya Grier MD [address] [facility] [address] [place] [address] 07/13/2024 9:00 AM MINT MACHINE OPERATOR - 07/13/2024 9:30 AM MINT MACHINE OPERATOR Surgery [facility] Lab [address] [place] [address] Jaya Grier MD [address] [facility] [address] [place] [address] ESOPHAGOGASTRODUODENOSCOPY Scheduled Procedures Name Priority Associated Diagnoses Date/Ti me ESOPHAGOGASTRODUODENOSCOPY Anemia, unspecified type Gastritis without bleeding, unspecified chronicity, unspecified gastritis type 07/13/2024 9:00 AM MINT MACHINE OPERATOR COLONOSCOPY Iron deficiency anemia due to chronic blood loss documented as of this encounter Procedures Procedure Name Priority Date/Time Associated Diagnosis Comments EGFR Routine 09/25/2021 5:27 PM CDT Stage 3b chronic kidney disease (HCC) DIFFERENTIAL AUTO Routine 09/25/2021 5:2 7 PM CDT Anemia due to chronic kidney disease, unspecified CKD stage CBC WITH AUTO DIFFERENTIAL Routine 09/25/2021 5:27 PM CDT Anemia due to chronic kidney disease, unspecified CKD stage PHOSPHORUS Routine 09/25/2021 5:27 PM CDT Acute renal failure superimposed on stage 4 chronic kidney disease, unspecified acute renal failure type (HCC) MAGNESIUM Routine 09/25/2021 5:27 PM CDT Acute renal failure superimposed on stage 4 chronic kidney disease, unspecified acute renal failure type (HCC) BASIC METABOLIC PANEL Routine 09/25/2021 5:27 PM CDT Stage 3b chronic kidney disease (HCC) documented in this encounter Results * eGFR (09/25/2021 5:27 PM CDT) eGFR 26 mL/min/1. 73 m2 NILSA ZAHIRA Comment: Interpretive Data Reference Interval Normal ?>/= [...] was last reviewed 2021. Testing performed by: [facility], [address] [place] [address]., [address] Blood 09/25/2021 5:27 PM CDT 09/25/2021 5:48 PM CDT us Cherelle Corcoran MD LAB BLOOD ORDERAB LES Final Result NILSA [address] [facility] [place] [address] * (ABNORMAL) Differential, auto (09/25/2021 5:27 PM CDT) Neutrophil abs 6.9(H) 1.7 - 6.5 K/cumm NILSA Comment:Testing performed by : [address] [address] Imm gran abs 0.1 0.0 - 0.1 K/cumm NILSA Comment:Testing performed by : [address] [address] Lymphocyte abs 2.9 0.8 - 3.3 K/cumm NILSA Comment:Testing performed by : [address] [address] Monocyte abs 0.7 0.2 - 0.8 K/cumm NILSA Comment:Testing performed by : [address] [address] Eosinophil abs 0.3 0.0 - 0.5 K/cumm NILSA Comment:Testing performed by : [address] [address] Basophil abs 0.1 0.0 - 0.1 K/cumm [facility] Comment:Testing performed by : [address] [address] Neutrophil pct 62.8 % [facility] Comment: Interpretive Data Percent cell count reference ranges are not reported, since discordance with absolute values may lead to misinterpretation of CBC data. Current Interpretive Data was last revised on 2017. Testing performed by: [address] [address] Imm gran pct 0.6 % [facility] Comment: Interpretive Data Percent cell count reference ranges are not reported, since discordance with absolute values may lead to misinterpretation of CBC data. Current Interpretive Data was last revised on 2017. Testing performed by: [address] [address] Lymphocyte pct 26.4 % [facility] Comment: Interpretive Data Percent cell count reference ranges are not reported, since discordance with absolute values may lead to misinterpretation of CBC data. Current Interpretive Data was last revised on 2017. Testing performed by: [address] [address] Monocyte pct 6.6 % NILSA Comment: Interpretive Data Percent cell count reference ranges are not reported, since discordance with absolute values may lead to misinterpretation of CBC data. Current Interpretive Data was last revised on 2017. Testing performed by: [address] [address] Eosinophil pct 3.1 % NILSA Comment: Interpretive Data Percent cell count reference ranges are not reported, since discordance with absolute values may lead to misinterpretation of CBC data. Current Interpretive Data was last revised on 2017. Testing performed by: [address] [address] Basophil pct 0.5 % NILSA Comment: Interpretive Data Percent cell count reference ranges are not reported, since discordance with absolute values may lead to misinterpretation of CBC data. Current Interpretive Data was last revised on 2017. Testing performed by: [address] [address] Blood 09/25/2021 5:27 PM CDT 09/25/2021 5:48 PM CDT us Cherelle Corcoran MD LAB BLOOD ORDERAB LES Final Result Performing Organization Address City/[facility]/ZIP Co de Phone Number [address] [place] [address] * (ABNORMAL) Magnesium (09/25/2021 5:27 PM CDT) Magnesium 2.6(H) 1.4 - 2.5 mg/dL NILSA Comment:Testing performed by : [address] [address] Blood 09/25/2021 5:27 PM CDT 09/25/2021 5:48 PM CDT us Sharron Thornton MD LAB BLOOD ORDERABLES Final Result Performing Organization Address City/[facility]/ZIP Co de Phone Number [address] [place] [address] * Phosphorus (09/25/2021 5:27 PM CDT) Pathologist [facility] Phosphorus, pl 3.9 2.3 - 4.5 mg/dL NILSA Comment:Testing performed by : [address] [address] Blood 09/25/2021 5:27 PM CDT 09/25/2021 5:48 PM CDT us Sharron Thornton MD LAB BLOOD ORDERABLES Final Result [facility] [address] [place] [address] * (ABNORMAL) Basic metabolic panel (09/25/2021 5:27 PM CDT) [facility] Sodium 143 135 - 145 mmol/L NILSA Comment:Testing performed by : [address] [address] Potassium, pl 5.0(H) 3.3 - 4.9 mmol/L NILSA Comment:Testing performed by : [address] [address] Chloride 107 97 - 110 mmol/L NILSA Comment:Testing performed by : [address] [address] CO2 24 22 - 32 mmol/L NILSA Comment:Testing performed by : [address] [address] Anion gap 12 2 - 15 mmol/L NILSA Comment:Testing performed by : [address] [address] BUN 55(H) 8 - 25 mg/dL NILSA Comment:Testing performed by : [address] [address] Creatinine 2.00(H) 0.60 - 1.10 mg/dL NILSA Comment:Testing performed by : [address] [address] Glucose 230(H) 70 - 199 mg/dL NILSA [...] was last revised 2017. Testing performed by: [address] [address] Calcium 9.6 8.5 - 10.3 mg/dL NILSA Comment:Testing performed by : [address] [address] Blood 09/25/2021 5:27 PM CDT 09/25/2021 5:48 PM CDT us Cherelle Corcoran MD LAB BLOOD ORDERAB LES Final Result [facility] Department [place] [address] * (ABNORMAL) CBC with auto differential (09/25/2021 5:27 PM CDT) [facility] WBC 11.0(H) 3.8 - 9.9 K/cumm NILSA Comment:Testing performed by : [address] [address] Hgb 7.7(L) 11.9 - 15.5 g/dL NILSA RODRIGES Comment:Testing performed by : [address] [address] Hct 25.0(L) 35.6 - 45.5 % NILSA RODRIGES Comment:Testing performed by : [address] [address] Plt 330 150 - 400 K/cumm NILSA Comment:Testing performed by : [address] [address] MPV 10.9 9.1 - 12.3 fL NILSA RODRIGES Comment:Testing performed by : [address] [address] RBC 2.64(L) 3.90 - 5.20 M/cumm NILSA RODRIGES Comment:Testing performed by : [address] [address] MCV 94.7 81.3 - 96.4 fL NILSA Comment:Testing performed by : [address] [address] MCH 29.2 27.1 - 33.3 pg NILSA Comment:Testing performed by : [address] [address] MCHC 30.8(L) 32.3 - 35.7 g/dL NILSA RODRIGES Comment:Testing performed by : [address] [address] RDW CV 15.8(H) 11.1 - 14.9 % NILSA Comment:Testing performed by : [address] [address] RDW SD 54.5(H) 35.7 - 48.1 fL NILSA Comment:Testing performed by : [address] [address] NRBC abs 0.00 0.00 - 0.01 K/cumm NILSA Comment:Testing performed by : [address] [address] Blood 09/25/2021 5:27 PM CDT 09/25/2021 5:48 PM CDT us Cherelle Corcoran MD LAB BLOOD ORDERAB LES Final Result NILSA RODRIGES [address] [facility] Department of Laboratories [place], [place] [id number] documented in this encounter Visit Diagnoses Diagnosis Anemia due to chronic kidney disease, unspecified CKD stage Stage 3b chronic kidney disease (HCC) Acute renal failure superimposed on stage 4 chronic kidney disease, unspecified acute renal failure type (HCC) Anemia, unspecified type Gastritis without bleeding, unspecified chronicity, unspecified gastritis type documented in this encounter Additional Health Concerns Infection Onset Date Last Indicated Resolved Time COVID: Recovered Comment:Added based on recent COVID infection. 08/24/2021 08/26/2021 12/22/2021 3:05 AM C DT documented as of this encounter Care Teams Major Gifts Officer Relationship Specialty Start Date End Date Cherelle Corcoran MD PCP - General Family Medicine 08/30/19 Mark Queen MD Consulting Physician Infectious Diseases 01/10/20 documented as of this encounter
--- OUTSIDE RECORDS SUMMARY | 2024-07-04 04:16 | XMS_ITS | Encounter Summary ---
Author Organization [facility] Address [address] [place] [address] Care Team Providers Care Purchasing And Fiscal Clerk Name Role Phone Cherelle Corcoran MD Primary Care Pro vider Mark Queen MD Unavailable [phone]- [phone] Xenia Padilla LPN Unavailable [phone] Encounter Details Date Type Department Care Team (Late st Contact Info) Description 09/19/2021 Telephone [facility] Primary Care [address] [facility] [address] [place] [address] Tena Roman Social History Tobacco Use Types Packs/Day Years [...] How often do you attend chur or episcopal services? Never 09/10/2021 Do you belong to [...] on file Legal Sex Female 9:03 AM AGRICULTURAL TECHNICIAN Gender Identity Female 02/08/2020 6:39 PM CDT Sexual Orientation Not on file documented as of this encounter Miscellaneous Notes * Telephone Encounter - Sandy Mota MA - 09/19/2021 1:58 PM CDT fyi * Telephone Encounter - Tena Roman - 09/19/2021 12:37 PM CDT Home health called stating they was not able to go to the home, pt is at the er. FYI documented in this encounter Plan of Treatment Upcoming Encounters Date Type Department Care Team (Latest Contact Info) Description 07/13/2024 9:00 AM AGRICULTURAL TECHNICIAN Hospital Encounter [facility] GI Lab [address] [place] [address] Jaya Grier MD [facility] [facility] [address] [place] [address] 07/13/2024 9:00 AM AGRICULTURAL TECHNICIAN - 07/13/2024 9:30 AM AGRICULTURAL TECHNICIAN Surgery [facility] GI Lab [address] [place] [address] Jaya Grier MD [facility] [facility] [address] [place] [address] ESOPHAGOGASTRODUODENOSCOPY Scheduled Procedures Name Priority Associated Diagnoses Date/Ti tx ESOPHAGOGASTRODUODENOSCOPY Anemia, unspecified type Gastritis without bleeding, unspecified chronicity, unspecified gastritis type 07/13/2024 9:00 AM AGRICULTURAL TECHNICIAN COLONOSCOPY Iron deficiency anemia due to chronic blood loss documented as of this encounter Visit Diagnoses Not on filedocumented in this encounter Additional Health Concerns Infection Onset Date Last Indicated Resolved Time COVID: Recovered Comment:Added based on recent COVID infection. 08/24/2021 08/26/2021 12/22/2021 3:05 AM C DT documented as of this encounter Care Teams Purchasing And Fiscal Clerk Relationship Specialty Start Date End Date Cherelle Corcoran MD PCP - General Family Medicine 08/30/19 Mark Queen MD Consulting Physician Infectious Diseases 01/10/20 Xenia Padilla LPN Consulting Sme 09/19/21 09/19/21 documented as of this encounter
--- OUTSIDE RECORDS SUMMARY | 2024-07-04 04:16 | XMS_ITS | Encounter Summary ---
Author Organization [facility] Address [address] [place] [address] Care Team Providers Care Irrigator Name Role Phone Cherelle Corcoran MD Primary Care Pro vider Mark Queen MD Unavailable [phone] Encounter Details Date Type Department Care Team (Late st Contact Info) Description 10/21/2021 Telephone [facility] Primary Care [address] [facility] [address] [place] [address] Cherelle Corcoran MD [facility] [address] [place] [address] Social History Tobacco Use Types [...] week 09/10/2021 How often do you attend [facility] or catholic services? Never 09/10/2021 Do [...] on file Legal Sex Female 9:03 AM ACADEMIC AFFAIRS ASSISTANT Gender Identity Female 02/08/2020 6:39 PM CDT Sexual Orientation Not on file documented as of this encounter Ordered Prescriptions Prescription Sig Dispense Quantity Refills Last Filled Start Date End Date ferrous sulfate 325 mg (65 mg of elemental iron) tabletIndications: Iron Deficiency Anemia Take 1 tablet (325 mg total) by mouth daily with breakfast 30 tablet 10/21/2021 2 famotidine (PEPCID) 20 mg tabletIndications: Gastroesophageal reflux disease, unspecified whether esophagitis present Take 1 tablet (20 mg total) by mouth daily 30 tablet 10/21/2021 2 documented in this encounter Miscellaneous Notes * Telephone Encounter - Nikki Vargas - 10/21/2021 11:53 AM CDT MEDICATION REFILL Last Annual Well Visit? NA Are you out of medication? yes Name of Medication: Famotidine Dosage: 20 mg Frequency: take 1 tablet by mouth daily Quantity: 30 Pharmacy: [facility] contact number to reach patient for questions: [phone] MEDICATION REFILL Last Annual Well Visit? NA Are you out of medication? yes Name of Medication:Ferrous sulfate Dosage:325 mg Frequency: take 1 tablet by mouth daily with breakfast Quantity: 30 Pharmacy: [facility] contact number to reach patient for questions: [phone] documented in this encounter Plan of Treatment Upcoming Encounters Date Type Department Care Team (Latest Contact Info) Description 07/13/2024 9:00 AM ACADEMIC AFFAIRS ASSISTANT Hospital Encounter [facility] GI Lab [address] [place] [address] Jaya Grier MD [facility] [facility] [address] [place] [address] 07/13/2024 9:00 AM ACADEMIC AFFAIRS ASSISTANT - 07/13/2024 9:30 AM ACADEMIC AFFAIRS ASSISTANT Surgery [facility] GI Lab [address] [place] [address] Jaya Grier MD [address] [facility] [address] [place] [address] ESOPHAGOGASTRODUODENOSCOPY Scheduled Procedures Name Priority Associated Diagnoses Date/Ti me ESOPHAGOGASTRODUODENOSCOPY Anemia, unspecified type Gastritis without bleeding, unspecified chronicity, unspecified gastritis type 07/13/2024 9:00 AM ACADEMIC AFFAIRS ASSISTANT COLONOSCOPY Iron deficiency anemia due to chronic blood loss documented as of this encounter Visit Diagnoses Diagnosis Gastroesophageal reflux disease, unspecified whether esophagitis present- Primary Anemia due to chronic kidney disease, unspecified CKD stage Anemia, unspecified type Gastritis without bleeding, unspecified chronicity, unspecified gastritis type documented in this encounter Discontinued Medications Medication Sig Discontinue Reason Start Date End Da te famotidine (PEPCID) 20 mg tablet Take 1 tablet (20 mg total) by mouth daily Reorder 09/19/2021 10/21/2021 ferrous sulfate 325 mg (65 mg of elemental iron) tabletIndications:Iron Deficiency Anemia Take 1 tablet (325 mg total) by mouth daily with breakfast Reorder 09/19/2021 10/21/2021 documented as of this encounter Additional Health Concerns Infection Onset Date Last Indicated Resolved Time COVID: Recovered Comment:Added based on recent COVID infection. 08/24/2021 08/26/2021 12/22/2021 3:05 AM C DT documented as of this encounter Care Teams Irrigator Relationship Specialty Start Date End Date Cherelle Corcoran MD PCP - General Family Medicine 08/30/19 Mark Queen MD Consulting Physician Infectious Diseases 01/10/20 documented as of this encounter
--- OUTSIDE RECORDS SUMMARY | 2024-07-04 04:16 | XMS_ITS | Encounter Summary ---
Author Organization [facility] Address [address] [place] [address] Care Team Providers Care Consumer Insights Intern Name Role Phone Cherelle Corcoran MD Primary Care Pro vider Mark Queen MD Unavailable [phone] Reason for Visit * Reason Comments Follow-up Encounter Details Date Type Department Care Team (Late st Contact Info) Description 10/07/2021 9:00 AM CDT Office Visit [facility] Primary Care [address] [facility] [address] [place] [address] Cherelle Corcoran MD [address] [place] [address] [address] [place] [address] Foot ulcer, left, with unspecified severity (HCC) (Primary Dx); Type 2 diabetes mellitus with diabetic neuropathy, with long-term current use of insulin (CMS/HCC) (HCC); Hypertension associated with diabetes (HCC); Hyperlipidemia associated with type 2 diabetes mellitus (HCC); Other diabetic neurological complication associated with type 2 diabetes mellitus (HCC); Weakness Social History Tobacco Use Types Packs/Day Years [...] on file Legal Sex Female 9:03 AM ASSAYER HELPER Gender Identity Female 02/08/2020 6:39 PM CDT Sexual Orientation Not on file documented as of this encounter Last Filed Vital Signs Vital Sign Reading Time Taken Comments Blood Pressure 136/84 10/07/2021 9:23 AM CDT Pulse 83 10/07/2021 9:23 AM CDT Temperature 36.9 ??C (98.4 ??F) 10/07/2021 9:23 AM CD T Respiratory Rate 18 10/07/2021 9:23 AM CDT Oxygen Saturation 97% 10/07/2021 9:23 AM CDT Inhaled Oxygen Concentration - - Weight 73.4 kg (161 lb 12.8 oz) 10/07/2021 9:23 AM CDT Height 157.5 cm (5' 2 ) 10/07/2021 9:23 AM CDT Body Mass Index 29.59 10/07/2021 9:23 AM CDT documented in this encounter Patient Instructions * Patient Instructions* Cherelle Corcoran MD - 10/07/2021 9:00 AM CDT alpha lipoic acid and vitamin B complex documented in this encounter Ordered Prescriptions Prescription Sig Dispense Quantity Refills Last Filled Start Date End Date miscellaneous medical supply (Blood Pressure Cuff) miscIndications:Hy pertension associated with diabetes (HCC) Use to check blood pressure daily 1 each 1 10/07/2021 3 documented in this encounter Progress Notes * Cherelle Corcoran MD - 10/07/2021 9:00 AM CDT Images from the original note were not included. Assessment/Plan: Assessment/Plan Diagnoses and all orders for this visit: Foot ulcer, left, with unspecified severity ([facility]) (Primary) Comments: Has appt with vascular today Type 2 diabetes mellitus with diabetic neuropathy, with long-term current use of insulin ([facility]) (HCC) Assessment & Plan: Following with endocrine, reviewed note Continue 25 units lantus nightly Continue humalog 8 units TIDAC + SSI Continue checking 4 times/day to help adjust insulin and ensure adequately treated Hypertension associated with diabetes ([facility]) Assessment & Plan: Blood pressure at goal, continue coreg 3.125mg twice a day Orders: - miscellaneous medical supply (Blood Pressure Cuff) misc; Use to check blood pressure daily Hyperlipidemia associated with type 2 diabetes mellitus ([facility]) Assessment & Plan: Continue statin Other diabetic neurological complication associated with type 2 diabetes mellitus ([facility]) Assessment & Plan: Continue lyrica 150mg nightly Weakness - Shower Chair/Tub Bench F/u 1 month or sooner as needed if symptoms not improving or worsen. Strict return/ED precautions discussed. Subjective: Barbara Chakraborty is a 70 y.o. female here for follow up chronic conditions HPI Chief Complaint Patient presents with ??? Follow-up dm: a1c 7.5, following with endo. on lantus 25 units and humalog 8 units TIDAC + SSI & trulicity. Blood sugar fasting ~112-140, post prandial 92-267, mostly <180. Lowest blood sugar 84, none less 70 Neuropathy improved on lyrica 150mg nightly . endo added Will add alpha lipoic acid and vitamin B complex Hypertension: on coreg 3.125mg bid, lisinopril d/c during recent hospitalizations Review of Systems Respiratory: Positive for cough and shortness of breath (with walking, improves with albuterol). Musculoskeletal: Positive for arthralgias. Objective: Vital signs were reviewed. Vitals: 10/07/21 0923 BP: 136/84 BP Location: Left arm Patient Position: Sitting Pulse: 83 Resp: 18 Temp: 36.9 ??C (98.4 ??F) TempSrc: Temporal SpO2: 97% Weight: 73.4 kg (161 lb 12.8 oz) Height: 157.5 cm (5' 2 ) Physical Exam Gen: NAD, comfortable, appears as stated age Eyes: no conjunctival injection, EOMI ENMT: external ears symmetric CV: Regular rate Pulm: no increased work of breathing Skin: discoloration and TTP L heel, no posterior calf TTP, warm and dry MSK/Neuro: symmetric limb movement Psych: alert and oriented to person/place Cherelle Corcoran MD documented in this encounter Miscellaneous Notes * Assessment & Plan Note - Cherelle Corcoran MD - 10/07/2021 9:39 AM CDTAssociated Problem(s): Diabetic neuropathy (HCC) (Resolved 05/16/2024) Continue lyrica 150mg nightly * Assessment & Plan Note - Cherelle Corcoran MD - 10/07/2021 9:39 AM CDTAssociated Problem(s): Mixed hyperlipidemia Continue statin * Assessment & Plan Note - Cherelle Corcoran MD - 10/07/2021 9:38 AM CDTAssociated Problem(s): Primary hypertension Blood pressure at goal, continue coreg 3.125mg twice a day * Assessment & Plan Note - Cherelle Corcoran MD - 10/07/2021 9:35 AM CDTAssociated Problem(s): Type 2 diabetes mellitus with diabetic neuropathy, with long-term current use of insulin (HCC) Following with endocrine, reviewed note Continue 25 units lantus nightly Continue humalog 8 units TIDAC + SSI Continue checking 4 times/day to help adjust insulin and ensure adequately treated documented in this encounter Plan of Treatment Upcoming Encounters Date Type Department Care Team (Latest Contact Info) Description 07/13/2024 9:00 AM ASSAYER HELPER Hospital Encounter [facility] [address] [place] [address] Jaya Grier MD [address] [facility] [address] [place] [address] 07/13/2024 9:00 AM ASSAYER HELPER - 07/13/2024 9:30 AM ASSAYER HELPER Surgery [facility] [address] [place] [address] Jaya Grier MD [facility] [facility] [address] [place] [address] ESOPHAGOGASTRODUODENOSCOPY Scheduled Procedures Name Priority Associated Diagnoses Date/Ti me ESOPHAGOGASTRODUODENOSCOPY Anemia, unspecified type Gastritis without bleeding, unspecified chronicity, unspecified gastritis type 07/13/2024 9:00 AM ASSAYER HELPER COLONOSCOPY Iron deficiency anemia due to chronic blood loss documented as of this encounter Visit Diagnoses Diagnosis Foot ulcer, left, with unspecified severity (HCC)- Primary Type 2 diabetes mellitus with diabetic neuropathy, with long-term current use of insulin ([facility]) Hypertension associated with diabetes (HCC) Unspecified essential hypertension Hyperlipidemia associated with type 2 diabetes mellitus (HCC) Other diabetic neurological complication associated with type 2 diabetes mellitus (HCC) Weakness Other malaise and fatigue Anemia, unspecified type Gastritis without bleeding, unspecified chronicity, unspecified gastritis type documented in this encounter Discontinued Medications Medication Sig Discontinue Reason Start Date End Da te miscellaneous medical supply (Blood Pressure Cuff) miscIndications:Hyperte nsion associated with diabetes (HCC) Use to check blood pressure daily Reorder 05/28/2021 10/07/2021 documented as of this encounter Orders General Supply Count Last Ordered Date First Or dered Date SHOWER CHAIR 1 10/07/2021 documented in this encounter Additional Health Concerns Infection Onset Date Last Indicated Resolved Time COVID: Recovered Comment:Added based on recent COVID infection. 08/24/2021 08/26/2021 12/22/2021 3:05 AM C DT documented as of this encounter Care Teams Consumer Insights Intern Relationship Specialty Start Date End Date Cherelle Corcoran MD PCP - General Family Medicine 08/30/19 Mark Queen MD Consulting Physician Infectious Diseases 01/10/20 documented as of this encounter
--- OUTSIDE RECORDS SUMMARY | 2024-07-04 04:16 | XMS_ITS | Encounter Summary ---
Author Organization [facility] Address [address] [place] [address] Care Team Providers Care Director Housekeeping Name Role Phone Cherelle Corcoran MD Primary Care Pro vider Mark Queen MD Unavailable [phone] Encounter Details Date Type Department Care Team (Late st Contact Info) Description 10/16/2021 5:05 PM CDT Lab [facility] [address] [place] [address] Stage 3b chronic kidney disease (HCC); [...] on file Legal Sex Female 9:03 AM ASSIGNMENT EDITOR Gender Identity Female 02/08/2020 6:39 PM CDT Sexual Orientation Not on file documented as of this encounter Plan of Treatment Upcoming Encounters Date Type Department Care Team (Latest Contact Info) Description 07/13/2024 9:00 AM ASSIGNMENT EDITOR Hospital Encounter [facility] [address] [place] [address] Jaya Grier MD [address] [place] [address] 07/13/2024 9:00 AM ASSIGNMENT EDITOR - 07/13/2024 9:30 AM ASSIGNMENT EDITOR Surgery [facility] [address] [place] [address] Jaya Grier MD [address] [place] [address] ESOPHAGOGASTRODUODENOSCOPY Scheduled Procedures Name Priority Associated Diagnoses Date/Ti me ESOPHAGOGASTRODUODENOSCOPY Anemia, unspecified type Gastritis without bleeding, unspecified chronicity, unspecified gastritis type 07/13/2024 9:00 AM ASSIGNMENT EDITOR COLONOSCOPY Iron deficiency anemia due to chronic blood loss documented as of this encounter Procedures Procedure Name Priority Date/Time Associated Diagnosis Comments EGFR Routine 10/16/2021 5:11 PM CDT Stage 3b chronic kidney disease (HCC) DIFFERENTIAL AUTO Routine 10/16/2021 5: 11 PM CDT Anemia in stage 3b chronic kidney disease (HCC) IRON PROFILE W/ IBC Routine 10/16/2021 5 :11 PM CDT Anemia in stage 3b chronic kidney disease (HCC) CBC WITH AUTO DIFFERENTIAL Routine 10/16/2021 5:11 PM CDT Anemia in stage 3b chronic kidney disease (HCC) PTH Routine 10/16/2021 5:11 PM CDT Stage 3b chronic kidney disease (HCC) VITAMIN B12 Routine 10/16/2021 5:11 PM CDT Anemia in stage 3b chronic kidney disease (HCC) BASIC METABOLIC PANEL Routine 10/16/2021 5:11 PM CDT Stage 3b chronic kidney disease (HCC) documented in this encounter Results * eGFR (10/16/2021 5:11 PM CDT) eGFR 32 mL/min/1. 73 m2 NILSA ZAHIRA Comment: Interpretive [...] reviewed 2021. Testing performed by: [facility], [address] [place] [address]., [address] Blood 10/16/2021 5:11 PM CDT 10/16/2021 5:48 PM CDT us Markie Ryan MD LAB BLOOD ORDERABLES Final Re sult NILSA RODRIGES [address] [facility] Department [place] [address] * Differential, auto (10/16/2021 5:11 PM CDT) [facility] Neutrophil abs 5.4 1.7 - 6.5 K/cumm NILSA Comment:Testing performed by : [address] [address] Imm gran abs 0.0 0.0 - 0.1 K/cumm NILSA Comment:Testing performed by : [address] [address] Lymphocyte abs 2.7 0.8 - 3.3 K/cumm NILSA Comment:Testing performed by : [address] [address] Monocyte abs 0.8 0.2 - 0.8 K/cumm NILSA Comment:Testing performed by : [address] [address] Eosinophil abs 0.2 0.0 - 0.5 K/cumm [facility] Comment:Testing performed by : [address] [address] Basophil abs 0.0 0.0 - 0.1 K/cumm [facility] Comment:Testing performed by : [address] [address] Neutrophil pct 59.3 % [facility] Comment: Interpretive Data Percent cell count reference ranges are not reported, since discordance with absolute values may lead to misinterpretation of CBC data. Current Interpretive Data was last revised on 2017. Testing performed by: [address] [address] Imm gran pct 0.4 % [facility] Comment: Interpretive Data Percent cell count reference ranges are not reported, since discordance with absolute values may lead to misinterpretation of CBC data. Current Interpretive Data was last revised on 2017. Testing performed by: [address] [address] Lymphocyte pct 29.2 % [facility] Comment: Interpretive Data Percent cell count reference ranges are not reported, since discordance with absolute values may lead to misinterpretation of CBC data. Current Interpretive Data was last revised on 2017. Testing performed by: [address] [address] Monocyte pct 8.3 % NILSA Comment: Interpretive Data Percent cell count reference ranges are not reported, since discordance with absolute values may lead to misinterpretation of CBC data. Current Interpretive Data was last revised on 2017. Testing performed by: [address] [address] Eosinophil pct 2.4 % NILSA Comment: Interpretive Data Percent cell count reference ranges are not reported, since discordance with absolute values may lead to misinterpretation of CBC data. Current Interpretive Data was last revised on 2017. Testing performed by: [address] [address] Basophil pct 0.4 % NILSA Comment: Interpretive Data Percent cell count reference ranges are not reported, since discordance with absolute values may lead to misinterpretation of CBC data. Current Interpretive Data was last revised on 2017. Testing performed by: [address] [address] Blood 10/16/2021 5:11 PM CDT 10/16/2021 5:48 PM CDT us Markie Ryan MD LAB BLOOD ORDERABLES Final Re sult NILSA [address] [facility] Department [place] [address] * (ABNORMAL) Iron profile w/ IBC (10/16/2021 5:11 PM CDT) Iron 49 35 - 145 mcg/dL NILSA RODRIGES Comment:Testing performed by : [address] [address] TIBC 255 250 - 400 mcg/dL NILSA RODRIGES Comment:Testing performed by : [address] [address] Transferrin saturation 19(L) 20 - 50 % NILSA RODRIGES Comment:Testing performed by : [address] [address] Blood 10/16/2021 5:11 PM CDT 10/16/2021 5:48 PM CDT Markie Ryan MD LAB BLOOD ORDERABLES Final Re sult Performing Organization Address City/[facility]/ZIP Co de Phone Number NILSA [address] [place] [address] * Vitamin B12 (10/16/2021 5:11 PM CDT) Pathologist [facility] Vitamin B12 772 230 - 1,250 pg/mL NILSA Comment:Testing performed by : [address] [address] Blood 10/16/2021 5:11 PM CDT 10/16/2021 5:48 PM CDT Markie Ryan MD LAB BLOOD ORDERABLES Final Re sult Performing Organization Address [facility] Co de Phone Number NILSA [facility] [place] [address] * (ABNORMAL) CBC with auto differential (10/16/2021 5:11 PM CDT) Pathologist [facility] WBC 9.1 3.8 - 9.9 K/cumm NILSA RODRIGES Comment:Testing performed by : [address] [address] Hgb 8.0(L) 11.9 - 15.5 g/dL NILSA Comment:Testing performed by : [address] [address] Hct 26.6(L) 35.6 - 45.5 % NILSA Comment:Testing performed by : [address] [address] Plt 330 150 - 400 K/cumm NILSA Comment:Testing performed by : [address] [address] MPV 10.7 9.1 - 12.3 fL NILSA Comment:Testing performed by : [address] [address] RBC 2.79(L) 3.90 - 5.20 M/cumm NILSA RODRIGES Comment:Testing performed by : [facility], [address] [place] [address]., [address] MCV 95.3 81.3 - 96.4 fL NILSA RODRIGES Comment:Testing performed by : [address] [address] MCH 28.7 27.1 - 33.3 pg NILSA RODRIGES Comment:Testing performed by : [address] [address] MCHC 30.1(L) 32.3 - 35.7 g/dL NILSA RODRIGES Comment:Testing performed by : [address] [address] RDW CV 15.4(H) 11.1 - 14.9 % NILSA Comment:Testing performed by : [address] [address] RDW SD 53.5(H) 35.7 - 48.1 fL NILSA Comment:Testing performed by : [address] [address] NRBC abs 0.00 0.00 - 0.01 K/cumm NILSA Comment:Testing performed by : [address] [address] Blood 10/16/2021 5:11 PM CDT 10/16/2021 5:48 PM CDT us Markie Ryan MD LAB BLOOD ORDERABLES Final Re sult NILSA [address] [facility] Department [place] [address] * (ABNORMAL) Basic metabolic panel (10/16/2021 5:11 PM CDT) Sodium 143 135 - 145 mmol/L NILSA RODRIGES Comment:Testing performed by : [address] [address] Potassium, pl 4.3 3.3 - 4.9 mmol/L NILSA RODRIGES Comment:Testing performed by : [address] [address] Chloride 107 97 - 110 mmol/L NILSA Comment:Testing performed by : [address] [address] CO2 26 22 - 32 mmol/L NILSA Comment:Testing performed by : [address] [address] Anion gap 10 2 - 15 mmol/L NILSA Comment:Testing performed by : [address] [address] BUN 37(H) 8 - 25 mg/dL NILSA Comment:Testing performed by : [address] [address] Creatinine 1.70(H) 0.60 - 1.10 mg/dL NILSA Comment:Testing performed by : [address] [address] Glucose 92 70 - 199 mg/dL NILSA [...] was last revised 2017. Testing performed by: [address] [address] Calcium 9.5 8.5 - 10.3 mg/dL NILSA Comment:Testing performed by : [address] [address] Blood 10/16/2021 5:11 PM CDT 10/16/2021 5:48 PM CDT us Markie Ryan MD LAB BLOOD ORDERABLES Final Re sult NILSA [address] [facility] Department [place] [address] * PTH (10/16/2021 5:11 PM CDT) PTH 40 15 - 65 pg/mL NILSA RODRIGES Comment:Testing performed by : [facility], [address] [place] [address]., [address] Blood 10/16/2021 5:11 PM CDT 10/16/2021 5:48 PM CDT us Markie Ryan MD LAB BLOOD ORDERABLES Final Re sult NILSA [address] [facility] Department [place] [address] documented in this encounter Visit Diagnoses Diagnosis [...] as of this encounter Care Teams Director Housekeeping Relationship Specialty Start Date End Date Cherelle Corcoran MD PCP - General Family Medicine 08/30/19 Mark Queen MD Consulting Physician Infectious Diseases 01/10/20 documented as of this encounter
--- OUTSIDE RECORDS SUMMARY | 2024-07-04 04:16 | XMS_ITS | Encounter Summary ---
Author Organization [facility] Healthcare Address [address] [place] [address] Care Team Providers Care Audio Visual Design Engineer Name Role Phone Cherelle Corcoran MD Primary Care Pro vider Mark Queen MD Unavailable [phone] Reason for Referral * Diagnostic Imaging (Routine) - Closed Specialty Diagnoses / Procedures Referred By Maryse lama Referred To Contact Diagnoses Atherosclerosis of [place] artery of both lower extremities with intermittent claudication (HCC) Procedures US Arterial Doppler Lower Extremity Bilateral Jani Kauffman MD [address] [place] [address] Phone: tel: fax: [facility] [address] [place] [phone] Referral ID Status Reason Start Date Expiration Date Visits Re quested Visits Authorized [id number] Closed 10/07/2021 11/06/2022 1 1 Reason for Visit * Diagnostic Imaging (Routine) - Closed Specialty Diagnoses / Procedures Referred By Maryse lama Referred To Contact Diagnoses Atherosclerosis of [place] artery of both lower extremities with intermittent claudication (HCC) Procedures US Arterial Doppler Lower Extremity Bilateral Jani Kauffman MD [address] [place] [address] Phone: tel: fax: [facility] [address] [place] [address] Referral ID Status Reason Start Date Expiration Date Visits Re quested Visits Authorized [id number] Closed 10/07/2021 11/06/2022 1 1 Encounter Details Date Type Department Care Team (Latest Contact Info) Description 10/16/2021 3:00 PM CDT - 10/16/2021 11:59 PM CDT Hospital Encounter [facility] 2 Vascular [address] [address] Atherosclerosis of [place] river artery of both lower extremities with intermittent claudication (CMS/HCC) (HCC) Discharge Disposition: Discharge to home [...] you attend chur ch or judaism services? Never 09/10/2021 Do you belong to [...] on file Legal Sex Female 9:03 AM PLAN CHECKER Gender Identity Female 02/08/2020 6:39 PM CDT Sexual Orientation Not on file documented as of this encounter Medications at Time of Discharge acetaminophen (TYLENOL) 325 mg tabletIndications: Fever,Pain Take 2 tablets (650 mg total) by mouth every 4 (four) hours as needed for pain 60 tablet 09/18/2021 2 lidocaine (LIDODERM) 5 %Indications:Chron ic back pain, unspecified back location, unspecified back pain laterality Place 1 patch on the skin daily Apply to painful area 12 hours per day, remove for 12 hours. 90 patch 1 04/05/2021 2 albuterol HFA (ProAir HFA) 90 mcg/actuation inhalerIndications :Wheezing Inhale 2 puffs every 4 (four) hours as needed for wheezing or shortness of breath 8.5 g 09/25/2021 3 atorvastatin (LIPITOR) 40 mg tablet Take 1 [...] as possible 2 each 1 05/28/2021 4 famotidine (PEPCID) 20 mg tablet Take 1 tablet (20 mg total) by mouth daily 30 tablet 11 09/19/2021 2 ferrous sulfate 325 mg (65 mg of elemental iron) tabletIndications: Iron Deficiency Anemia Take 1 tablet (325 mg total) by mouth daily with breakfast 30 tablet 11 09/19/2021 2 flash glucose scanning reader (FreeStyle Madhav [address] [place]) miscIndications:Ty pe 2 diabetes mellitus with diabetic [...] MISC) 3 times a day 09/12/2017 3 Trulicity 0.75 mg/0.5 mL pen injectorIndication s:Type 2 diabetes mellitus with diabetic neuropathy, with long-term current use of insulin (HCC) ADMINISTER 0.75 MG UNDER THE SKIN 1 TIME A WEEK 2 mL 10/07/2021 2 documented as of this encounter Discharge Disposition Disposition Code Departure Means Destination Discharge to home or self care documented in this encounter Plan of Treatment Upcoming Encounters Date Type Department Care Team (Latest Contact Info) Description 07/13/2024 9:00 AM PLAN CHECKER Hospital Encounter [facility] [address] [place] [address] Jaya Grier MD [address] [place] [address] 07/13/2024 9:00 AM PLAN CHECKER - 07/13/2024 9:30 AM PLAN CHECKER Surgery [facility] [address] [place] [address] Jaya Grier MD [address] [place] [address] ESOPHAGOGASTRODUODENOSCOPY Scheduled Procedures Name Priority Associated Diagnoses Date/Ti me ESOPHAGOGASTRODUODENOSCOPY Anemia, unspecified type Gastritis without bleeding, unspecified chronicity, unspecified gastritis type 07/13/2024 9:00 AM PLAN CHECKER COLONOSCOPY Iron deficiency anemia due to chronic blood loss documented as of this encounter Procedures Procedure Name Priority Date/Time Associated Diagnosis Comments US ARTERIAL DOPPLER LOWER EXTREMITY BILATERAL Schedule Routine, Read Routine (OP Routine) 10/16/2021 4:06 PM CDT Atherosclerosis of [place] artery of both lower extremities with intermittent claudication (CMS/HCC) ([facility]) documented in this encounter Results * US Arterial Doppler Lower Extremity Bilateral (10/16/2021 4:06 PM CDT) Anatomical Region Laterality Modality Vascular N/A Ultrasound 10/16/2021 Narrative 10/20/2021 9:52 PM CDT [place] Job ID: [id number] Bagel [place] Document ID: [id number] Dictated date/time: [id number] BILATERAL LOWER EXTREMITY ARTERIAL DOPPLER REASON FOR EXAM Atherosclerosis with claudication. FINDINGS ON THE RIGHT The right common femoral, popliteal, posterior tibial and dorsalis pedis have triphasic waveforms. ??Right ankle-brachial index is 1.1. FINDINGS ON THE LEFT The left common femoral, popliteal, posterior tibial and dorsalis pedis have triphasic waveforms. ??Left ankle-brachial index is 1.1. INTERPRETATION Right ankle-brachial index of 1.1 which is normal. Left ankle-brachial index of 1.1 which is normal. Job ID/Internal Job ID: ??[id number] Jani Kauffman MD [facility] PROCEDURES Final Result documented in this encounter Visit Diagnoses Diagnosis Atherosclerosis of [place] artery of both lower extremities with intermittent claudication (HCC) Anemia, unspecified type Gastritis without bleeding, unspecified chronicity, unspecified gastritis type documented in this encounter Additional Health Concerns Infection Onset Date Last Indicated Resolved Time COVID: Recovered Comment:Added based on recent COVID infection. 08/24/2021 08/26/2021 12/22/2021 3:05 AM C DT documented as of this encounter Care Teams Audio Visual Design Engineer Relationship Specialty Start Date End Date Cherelle Corcoran MD PCP - General Family Medicine 08/30/19 Mark Queen MD Consulting Physician Infectious Diseases 01/10/20 documented as of this encounter
--- OUTSIDE RECORDS SUMMARY | 2024-07-04 04:16 | XMS_ITS | Encounter Summary ---
Author Organization [facility] Address [address] [place] [address] Care Team Providers Care Boat Mechanic Name Role Phone Cherelle Corcoran MD Primary Care Pro vider Mark Queen MD Unavailable [phone] Sarahy Schmidt TELEVISION INSPECTOR Unavailable [phone] Reason for Visit * Reason Onset Date Comments home health orders 11/26/2021 Encounter Details Date Type Department Care Team ([facility] st Contact Info) Description 11/26/2021 Telephone [facility] Primary Care [facility] [address] [place] [address] Cherelle Cocroran MD [address] [place] [address] [address] [place] [address] home health orders Social History Tobacco Use Types Packs/Day Years [...] file Legal Sex Female 9:03 AM CREATIVE DESIGNER Gender Identity Female 02/08/2020 6:39 PM CDT Sexual Orientation Not on file documented as of this encounter Miscellaneous Notes * Telephone Encounter - Sandy Mota MA - 11/29/2021 10:40 AM CDT Orders have been faxed. Thanks! * Telephone Encounter - Shannen Escalona - 11/29/2021 8:43 AM CDT Ramila called back. She is needing orders signed & sent back to them RA. Thanks. Ramila ph [phone] * Telephone Encounter - Yoly Elkins LPN - 11/27/2021 11:06 AM CDT Spoke to Ramila, stated home health orders were prior to patient being admitted in hospital, so willrefax. * Telephone Encounter - Xenia Padilla LPN - 11/27/2021 9:49 AM CDT Care project coach attempted to reach patient regarding patient's recent admission into [facility] on 11/15/2021 - 11/26/2021 (11 days) for Cough, Physical deconditioning, Left leg DVT, Pulmonary nodule, Type 2 diabetes mellitus with diabetic neuropathy, with long-term current use of insulin, Hyperlipidemia associated with type 2 diabetes mellitus, Dementia, Schizoaffective disorder, bipolar type, and Stage 3b chronic kidney disease. Care project coach attempted to reach patient and left patient a voicemail. Care project coach also contacted [facility] and was informed by Sarahy that patient was admitted into their facility yesterday November 26. Care project coach will inform primary care physician and Jules to the ACO it investment/portfolio manager for facility to continue to be contacted by the ACO for possible discharge. [facility] - SNF, Medicaid, Short Term Skilled - [phone] * Telephone Encounter - Cherelle Corcoran MD - 11/27/2021 8:20 AM CDT April: please advise lindy home health not needed as in rehab * Telephone Encounter - Shnanen Escalona - 11/26/2021 2:31 PM CDT Ramila @ [facility] called to check on the status of home health orders for this pt. Please advise. Thanks. Ramila [phone] documented in this encounter Plan of Treatment Upcoming Encounters Date Type Department Care Team (Latest Contact Info) Description 07/13/2024 9:00 AM CREATIVE DESIGNER Hospital Encounter [facility] [address] [place] [address] Jaya Grier MD [address] [place] [address] 07/13/2024 9:00 AM CREATIVE DESIGNER - 07/13/2024 9:30 AM CREATIVE DESIGNER Surgery [facility] [address] [place] [address] Jaya Grier MD [address] [place] [address] ESOPHAGOGASTRODUODENOSCOPY Scheduled Procedures Name Priority Associated Diagnoses Date/Ti me ESOPHAGOGASTRODUODENOSCOPY Anemia, unspecified type Gastritis without bleeding, unspecified chronicity, unspecified gastritis type 07/13/2024 9:00 AM CREATIVE DESIGNER COLONOSCOPY Iron deficiency anemia due to [...] documented as of this encounter Care Teams Boat Mechanic Relationship Specialty Start Date End Date Cherelle Corcoran MD PCP - General Family Medicine 08/30/19 Mark Queen MD Consulting Physician Infectious Diseases 01/10/20 Sarahy Schmidt, TELEVISION INSPECTOR [address] [place] [address] ACO Care Vascular Surgery Physician 11/27/21 12/25/21 documented as of this encounter
--- OUTSIDE RECORDS SUMMARY | 2024-07-04 04:16 | XMS_ITS | Encounter Summary ---
Author Organization [facility] Address [address] [place] [address] Care Team Providers Care Analog Ic Design Architect Name Role Phone Cherelle Corcoran MD Primary Care Pro vider Mark Queen MD Unavailable [phone] Encounter Details Date Type Department Care Team (Late st Contact Info) Description 09/24/2021 Telephone [facility] Primary Care [address] [facility] [address] [place] [address] Cherelle Corcoran MD [facility] [address] [place] [address] Social History Tobacco Use Types [...] week 09/10/2021 How often do you attend [facility] or congregational services? Never 09/10/2021 Do you [...] on file Legal Sex Female 9:03 AM CREPE MACHINE OPERATOR Gender Identity Female 02/08/2020 6:39 PM CDT Sexual Orientation Not on file documented as of this encounter Miscellaneous Notes * Telephone Encounter - Yoly Elkins LPN - 09/24/2021 12:08 PM CDT JOY Questions: What days were you in the hospital? 09/19/2021-09/23/2021 What hospital (or long term facility) were you in? [facility] What was the reason for your hospital stay? Sepsis, Pneumonia If you were prescribed any new medications in the hospital, do you have any questions or concerns about them (if patient has concerns route message to clinical pool)? No concerns If you were prescribed new medications, were you able to pick them up (if patient will not be able to coal picker the medications, route to clinical pool)? Yes Do you have enough medication to get you to your follow-up appointment (if patient does not have enough medication, route to clinical pool)? Yes Since being released from the hospital do you feel better, the same, or worse (if patient feels worse, route to clinical pool)? Patient feels some what better Date of Transition of Care Appointment: 09/25/2021 Do you have transportation to the appointment? (if patient does not, route to clinical pool) Yes Additional Comments: Meds reviewed. documented in this encounter Plan of Treatment Upcoming Encounters Date Type Department Care Team (Latest Contact Info) Description 07/13/2024 9:00 AM CREPE MACHINE OPERATOR Hospital Encounter [facility] GI Lab [address] [place] [address] Jaya Grier MD [facility] [facility] [address] [place] [address] 07/13/2024 9:00 AM CREPE MACHINE OPERATOR - 07/13/2024 9:30 AM CREPE MACHINE OPERATOR Surgery [facility] GI Lab [address] [place] [address] Jaya Grier MD [facility] [facility] [address] [place] [address] ESOPHAGOGASTRODUODENOSCOPY Scheduled Procedures Name Priority Associated Diagnoses Date/Ti wi ESOPHAGOGASTRODUODENOSCOPY Anemia, unspecified type Gastritis without bleeding, unspecified chronicity, unspecified gastritis type 07/13/2024 9:00 AM CREPE MACHINE OPERATOR COLONOSCOPY Iron deficiency anemia due to chronic blood loss documented as of this encounter Visit Diagnoses Not on filedocumented in this encounter Additional Health Concerns Infection Onset Date Last Indicated Resolved Time COVID: Recovered Comment:Added based on recent COVID infection. 08/24/2021 08/26/2021 12/22/2021 3:05 AM C DT documented as of this encounter Care Teams Analog Ic Design Architect Relationship Specialty Start Date End Date Cherelle Corcoran MD PCP - General Family Medicine 08/30/19 Mark Queen MD Consulting Physician Infectious Diseases 01/10/20 documented as of this encounter
--- OUTSIDE RECORDS SUMMARY | 2024-07-04 04:16 | XMS_ITS | Encounter Summary ---
Author Organization [facility] Address [address] [place] [address] Care Team Providers Care Clinical Research Coordinator Name Role Phone Cherelle Corcoran MD Primary Care Pro vider Mark Queen MD Unavailable [phone] Xenia Padilla LPN Unavailable [phone] Reason for Visit * Reason Onset Date Comments CARE ACQUISITION MARKETING MANAGER JOY IP 09/19/2021 Back to [facility] on ED Encounter Details Date Type Department Care Team (Late st Contact Info) Description 09/19/2021 Telephone [facility] Primary Care [address] [facility] [place] [address] Xenia Padilla LPN [address] [place] [address] CARE ACQUISITION MARKETING MANAGER JOY IP (Back to [place] ED) Social History Tobacco Use Types Packs/Day [...] on file Legal Sex Female 9:03 AM IMPREGNATING HELPER Gender Identity Female 02/08/2020 6:39 PM CDT Sexual Orientation Not on file documented as of this encounter Miscellaneous Notes * Telephone Encounter - Xenia Padilla LPN - 09/20/2021 12:53 PM CDT Care coach driver called to follow up with patient daughter Areli in relation to patient's recent admission into [facility] on September 06 through September 18 then sent to [facility] emergency department on September 19. Areli states that [facility]. She states that patient will schedule a follow up with primary care provider once discharged. She states that they are unaware when patient will be discharged from [facility]. Care coach driver contact information was given to Areli and advised to call with any questionsor concerns and when patient is discharged to please call and schedule a follow up for patient. Areli verbally voiced understanding and states that she will. * Telephone Encounter - Xenia Padilla LPN - 09/19/2021 10:05 AM CDT Cherelle Corcoran MD 09/19/2021 2:45 PM - Canceled Admitted - [facility] 09/06/2021 - 09/18/2021 (12 days) DX - Volume overload, Anemia, Schizoaffective disorder, bipolar type, Diabetic neuropathy, Type 2 diabetes mellitus with diabetic neuropathy, with long-term current use of insulin, Dementia, and Acute renal failure superimposed on stage 4 chronic kidney disease RX - acetaminophen 325 mg tablet - Take 2 tablets (650 mg total) by mouth every 4 (four) hours as needed for pain, carvedilol 12.5 mg tablet - Take 1 tablet (12.5 mg total) by mouth 2 (two) times a day with meals, ferrous sulfate 325 mg (65 mg of elemental iron) tablet - Take 1 tablet (325 mg total) by mouth daily with breakfast, furosemide 40 mg tablet - Take 1 tablet (40 mg total) by mouth 2 (two) times a day, insulin lispro 100 unit/mL pen for injection - Inject 0-10 Units under the skin 3 (three) times a day with meals, insulin lispro 100 unit/mL pen for injection - Inject 1-4 Units underthe skin 3 (three) times a day with meals (1 unit for every 50 mg/dL blood, glucose greater than 150 mg/dL up to max 4 units) Refer to After Visit Summary for Sliding - Scale Insulin Instructions, insulin lispro 100 unit/mL pen for injection - Inject 8 Units under the skin 3 (three) times a day with meals Blood Sugar (mg/ dL) - 150 or less No Insulin, 151 to 200 1 unit, 201 to 250 2 units, 251 to 300 3 units, Greater than 300 4 units Home Health Ordered - [facility] Care coach driver spoke with patient???s daughter Areli on the phone in relation to patient's recent admission into [facility] on September 06 through September 18 for volume overload, Anemia, Schizoaffective disorder, bipolar type, Diabetic neuropathy, Type 2 diabetes mellitus with diabetic neuropathy, with long-term current use of insulin, Dementia, and Acute renal failure superimposed on stage 4 chronic kidney disease. Areli states that patient did very well last night coming home from the hospital and states that when patient woke up this morning, she stated that she needed to use the restroom and was unable to get out of the bed to walk. Areli states that her and her son tried to help patient get to the bathroom and patient defecated all over herself and the house. Areli stated that she had to call EMS and they took patient to [place] emergency department. Areli states that patient is not at the home and is going to need more help before returning home. Care coach driver verbally voiced understanding and advised Areli that care coach driver will cancel her follow up today with primary care provider and care coach driver will follow up with Areli tomorrow for more information on patient to see if she is admitted into [facility]. Areli verbally voiced understanding. Care coach driver will continue to keep primary care provider informed. documented in this encounter Plan of Treatment Upcoming Encounters Date Type Department Care Team (Latest Contact Info) Description 07/13/2024 9:00 AM IMPREGNATING HELPER Hospital Encounter [facility] GI Lab [address] [place] [address] [place] [address] [place] [address] [address] [place] [address] 07/13/2024 9:00 AM IMPREGNATING HELPER - 07/13/2024 9:30 AM IMPREGNATING HELPER Surgery [facility] [address] [place] [address] Jaya Grier MD [facility] [facility] [facility] [address] [place] [address] ESOPHAGOGASTRODUODENOSCOPY Scheduled Procedures Name Priority Associated Diagnoses Date/Ti me ESOPHAGOGASTRODUODENOSCOPY Anemia, unspecified type Gastritis without bleeding, unspecified chronicity, unspecified gastritis type 07/13/2024 9:00 AM IMPREGNATING HELPER COLONOSCOPY Iron deficiency anemia due to chronic blood loss documented as of this encounter Visit Diagnoses Not on filedocumented in this encounter Additional Health Concerns Infection Onset Date Last Indicated Resolved Time COVID: Recovered Comment:Added based on recent COVID infection. 08/24/2021 08/26/2021 12/22/2021 3:05 AM C DT documented as of this encounter Care Teams Clinical Research Coordinator Relationship Specialty Start Date End Date Cherelle Corcoran MD PCP - General Family Medicine 08/30/19 Mark Queen MD Consulting Physician Infectious Diseases 01/10/20 Xenia Padilla LPN [employer] 09/19/21 09/19/21 documented as of this encounter
--- OUTSIDE RECORDS SUMMARY | 2024-07-04 04:16 | XMS_ITS | Encounter Summary ---
Author Organization [facility] Address [address] [facility] [address] [place] [address] Care Team Providers Care Measurement And Verification Engineer Name Role Phone Cherelle Corcoran MD Primary Care Pro vider Mark Queen MD Unavailable [phone] Encounter Details Date Type Department Care Team (Late st Contact Info) Description 10/11/2021 Telephone [facility] Primary Care [address] [facility] [address] [place] [address] Cherelle Corcoran MD [facility]4 [facility] [address] [place] [address] Social History Tobacco Use Types [...] you attend [facility] or sabianism services? Never 09/10/2021 Do you [...] on file Legal Sex Female 9:03 AM PIGMENT PUMPER Gender Identity Female 02/08/2020 6:39 PM CDT Sexual Orientation Not on file documented as of this encounter Miscellaneous Notes * Telephone Encounter - Sandy Mota MA - 10/15/2021 11:02 AM CDT Faxed over with corrected 4 times a day * Telephone Encounter - Sandy Mota MA - 10/11/2021 4:33 PM CDT Spoke to ruby and she is going to fax over the corrected script for pt for Dr. Corcoran to sign and I let her know we will fax it back Thursday when signed * Telephone Encounter - Poonam Sharma - 10/11/2021 12:02 PM CDT Ruby with speciality medical equip called regarding pt script *flash glucose scanning reader (Budge) Madhav 2 reader According to chart notes 10/07/2021 insulin for 4 times a day, pt was taking 5 times a day. Rep states it need to read as 4times a day with the chart notes Rep/Ruby [phone] Thank you documented in this encounter Plan of Treatment Upcoming Encounters Date Type Department Care Team (Latest Contact Info) Description 07/13/2024 9:00 AM PIGMENT PUMPER Hospital Encounter [facility] [address] [place] [address] Jaya Grier MD [facility]0 [facility] [address] [place] [address] 07/13/2024 9:00 AM PIGMENT PUMPER - 07/13/2024 9:30 AM PIGMENT PUMPER Surgery [facility] [address] [place] [address] Jaya Grier MD [address] [facility] [address] [place] [address] ESOPHAGOGASTRODUODENOSCOPY Scheduled Procedures Name Priority Associated Diagnoses Date/Ti me ESOPHAGOGASTRODUODENOSCOPY Anemia, unspecified type Gastritis without bleeding, unspecified chronicity, unspecified gastritis type 07/13/2024 9:00 AM PIGMENT PUMPER COLONOSCOPY Iron deficiency anemia due to chronic blood loss documented as of this encounter Visit Diagnoses Not on filedocumented in this encounter Additional Health Concerns Infection Onset Date Last Indicated Resolved Time COVID: Recovered Comment:Added based on recent COVID infection. 08/24/2021 08/26/2021 12/22/2021 3:05 AM C DT documented as of this encounter Care Teams Measurement And Verification Engineer Relationship Specialty Start Date End Date Cherelle Corcoran MD PCP - General Family Medicine 08/30/19 Mark Queen MD Consulting Physician Infectious Diseases 01/10/20 documented as of this encounter
--- OUTSIDE RECORDS SUMMARY | 2024-07-04 04:16 | XMS_ITS | Encounter Summary ---
Author Organization [facility] Address [address] [facility] [address] [place] [address] Care Team Providers Care Energy Professional Name Role Phone Cherelle Corcoran MD Primary Care Pro vider Mark Queen MD Unavailable [phone] Encounter Details Date Type Department Care Team (Late st Contact Info) Description 11/04/2021 Orders Only [facility] Health Information Management [address] [place] [address] Scanning, Provider Social History Tobacco [...] file Legal Sex Female 9:03 AM PROFESSIONAL ATHLETES COACH Gender Identity Female 02/08/2020 6:39 PM CDT Sexual Orientation Not on file documented as of this encounter Plan of Treatment Upcoming Encounters Date Type Department Care Team (Latest Contact Info) Description 07/13/2024 9:00 AM PROFESSIONAL ATHLETES COACH Hospital Encounter [facility] [address] [place] [address] Jaya Grier MD [address] [facility] [address] [place] [address] 07/13/2024 9:00 AM PROFESSIONAL ATHLETES COACH - 07/13/2024 9:30 AM PROFESSIONAL ATHLETES COACH Surgery [facility] [address] [place] [address] Jaya Grier MD [address] [facility] [address] [place] [address] ESOPHAGOGASTRODUODENOSCOPY Scheduled Procedures Name Priority Associated Diagnoses Date/Ti me ESOPHAGOGASTRODUODENOSCOPY Anemia, unspecified type Gastritis without bleeding, unspecified chronicity, unspecified gastritis type 07/13/2024 9:00 AM PROFESSIONAL ATHLETES COACH COLONOSCOPY Iron deficiency anemia due to chronic blood loss documented as of this encounter Procedures Procedure Name Priority Date/Time Associated Diagnosis Comments SCAN - RADIOLOGY/IMAGING 11/04/2021 documented in this encounter Results * SCAN - RADIOLOGY/IMAGING (11/04/2021) Anatomical Region Laterality Modality Other us Provider Scanning Edited Result - Final documented in this encounter Visit Diagnoses Not on filedocumented in this encounter Additional Health Concerns Infection Onset Date Last Indicated Resolved Time COVID: Recovered Comment:Added based on recent COVID infection. 08/24/2021 08/26/2021 12/22/2021 3:05 AM C DT documented as of this encounter Care Teams Energy Professional Relationship Specialty Start Date End Date Cherelle Corcoran MD PCP - General Family Medicine 08/30/19 Mark Queen MD Consulting Physician Infectious Diseases 01/10/20 documented as of this encounter
--- OUTSIDE RECORDS SUMMARY | 2024-07-04 04:16 | XMS_ITS | Encounter Summary ---
Author Organization [facility] Address [address] [facility] [address] [place] [address] Care Team Providers Care Hand Potter Name Role Phone Cherelle Corcoran MD Primary Care Pro vider Mark Queen MD Unavailable [phone] Encounter Details Date Type Department Care Team (Late st Contact Info) Description 10/08/[address] [facility] Primary Care [address] [facility] [address] [place] [address] Cherelle Corcoran MD [facility]4 [facility] [address] [place] [address] Social History Tobacco Use Types [...] week 09/10/2021 How often do you attend [facility] or restorationism services? Never 09/10/2021 Do you [...] on file Legal Sex Female 9:03 AM ASPARAGUS BUNCHER Gender Identity Female 02/08/2020 6:39 PM CDT Sexual Orientation Not on file documented as of this encounter Miscellaneous Notes * Telephone Encounter - Sandy Mota MA - 10/08/2021 5:02 PM CDT FYI * Telephone Encounter - Tena Roman - 10/08/2021 3:04 PM CDT Patient daughter/Areli called to informed the DR that she has appointment schedule with Dr. Kauffman for an Ultra Sound on 10/16/21. Pt daughter CB# [phone] documented in this encounter Plan of Treatment Upcoming Encounters Date Type Department Care Team (Latest Contact Info) Description 07/13/2024 9:00 AM ASPARAGUS BUNCHER Hospital Encounter [facility] [address] [place] [address] Jaya Grier MD [facility] [address] [place] [address] 07/13/2024 9:00 AM ASPARAGUS BUNCHER - 07/13/2024 9:30 AM ASPARAGUS BUNCHER Surgery [facility] [address] [place] [address] Jaya Grier MD [address] [facility] [address] [place] [address] ESOPHAGOGASTRODUODENOSCOPY Scheduled Procedures Name Priority Associated Diagnoses Date/Ti va ESOPHAGOGASTRODUODENOSCOPY Anemia, unspecified type Gastritis without bleeding, unspecified chronicity, unspecified gastritis type 07/13/2024 9:00 AM ASPARAGUS BUNCHER COLONOSCOPY Iron deficiency anemia due to chronic blood loss documented as of this encounter Visit Diagnoses Not on filedocumented in this encounter Additional Health Concerns Infection Onset Date Last Indicated Resolved Time COVID: Recovered Comment:Added based on recent COVID infection. 08/24/2021 08/26/2021 12/22/2021 3:05 AM C DT documented as of this encounter Care Teams Hand Potter Relationship Specialty Start Date End Date Cherelle Corcoran MD PCP - General Family Medicine 08/30/19 Mark Queen MD Consulting Physician Infectious Diseases 01/10/20 documented as of this encounter
--- OUTSIDE RECORDS SUMMARY | 2024-07-04 04:16 | XMS_ITS | Encounter Summary ---
Author Organization [facility] Address [address] [facility] [address] [place] [address] Care Team Providers Care Desk Interviewer Name Role Phone Cherelle Corcoran MD Primary Care Pro vider Mark Queen MD Unavailable [phone] Reason for Referral * Diagnostic Imaging (Routine) - Closed Specialty Diagnoses / Procedures Referred By Contflex t Referred To Contact Diagnoses Atherosclerosis of shoalwater artery of both lower extremities with intermittent claudication (HCC) Procedures US Arterial Doppler Lower Extremity Bilateral Jani Kauffman MD [address] [facility] [address] [place] [address] Phone: tel: fax: [facility] Medical Office Building [address] [place] [phone] Referral ID Status Reason Start Date Expiration Date Visits Re quested Visits Authorized [id number] Closed 10/07/2021 11/06/2022 1 1 Encounter Details Date Type Department Care Team (Late st Contact Info) Description 10/07/2021 Orders Only [facility] Vascular and Vein Surgery [address] [facility] [address] [place] [address] Jani Kauffman MD [address] [facility] [address] [place] [address] Atherosclerosis of shoalwater artery of both lower extremities with intermittent claudication (CMS/HCC) (HCC) (Primary Dx) Social History Tobacco [...] on file Legal Sex Female 9:03 AM FOREIGN CLERK Gender Identity Female 02/08/2020 6:39 PM CDT Sexual Orientation Not on file documented as of this encounter Plan of Treatment Upcoming Encounters Date Type Department Care Team (Latest Contact Info) Description 07/13/2024 9:00 AM FOREIGN CLERK Hospital Encounter [facility] [address] [place] [address] Jaya Grier MD [facility] [address] [place] [address] 07/13/2024 9:00 AM FOREIGN CLERK - 07/13/2024 9:30 AM FOREIGN CLERK Surgery [facility] [address] [place] [address] Jaya Grier MD [address] [facility] [address] [place] [address] ESOPHAGOGASTRODUODENOSCOPY Scheduled Procedures Name Priority Associated Diagnoses Date/Ti me ESOPHAGOGASTRODUODENOSCOPY Anemia, unspecified type Gastritis without bleeding, unspecified chronicity, unspecified gastritis type 07/13/2024 9:00 AM FOREIGN CLERK COLONOSCOPY Iron deficiency anemia due to chronic blood loss documented as of this encounter Results * US Arterial Doppler Lower Extremity Bilateral (10/16/2021 4:06 PM CDT) Anatomical Region Laterality Modality Vascular N/A Ultrasound 10/16/2021 Narrative 10/20/2021 9:52 PM CDT [employer] Job ID: [id number] [employer] Document ID: [id number] Dictated date/time: BILATERAL LOWER EXTREMITY ARTERIAL DOPPLER REASON FOR [...] which is normal. Job ID/Internal Job ID: ??[id number] Jani Kauffman MD [facility] US PROCEDURES Final Result documented in this encounter Visit Diagnoses Diagnosis Atherosclerosis of shoalwater artery of both lower extremities with intermittent claudication (HCC)- Primary Atherosclerosis of shoalwater artery of both lower extremities with intermittent claudication (HCC) Anemia, unspecified type Gastritis without bleeding, unspecified chronicity, unspecified gastritis type documented in this encounter Additional Health Concerns Infection Onset Date Last Indicated Resolved Time COVID: Recovered Comment:Added based on recent COVID infection. 08/24/2021 08/26/2021 12/22/2021 3:05 AM C DT documented as of this encounter Care Teams Desk Interviewer Relationship Specialty Start Date End Date Cherelle Corcoran MD PCP - General Family Medicine 08/30/19 Mark Queen MD Consulting Physician Infectious Diseases 01/10/20 documented as of this encounter
--- OUTSIDE RECORDS SUMMARY | 2024-07-04 04:16 | XMS_ITS | Encounter Summary ---
Author Organization [facility] Medical Group Address [address] [facility] [address] [place] [address] Care Team Providers Care Assistant Store Manager Trainee Name Role Phone Cherelle Corcoran MD Primary Care Pro vider Mark Queen MD Unavailable [phone] Encounter Details Date Type Department Care Team (Late st Contact Info) Description 11/05/2021 Orders Only [facility] Health Information Management [address] [place] [address] Scanning, Provider Social History Tobacco [...] attend chur ch or religion services? Never 09/10/2021 Do you belong to [...] on file Legal Sex Female 9:03 AM KIESELGUHR REGENERATOR OPERATOR Gender Identity Female 02/08/2020 6:39 PM CDT Sexual Orientation Not on file documented as of this encounter Plan of Treatment Upcoming Encounters Date Type Department Care Team (Latest Contact Info) Description 07/13/2024 9:00 AM KIESELGUHR REGENERATOR OPERATOR Hospital Encounter [facility] [address] [place] [address] Jaya Grier MD [address] [facility] [address] [place] [address] 07/13/2024 9:00 AM KIESELGUHR REGENERATOR OPERATOR - 07/13/2024 9:30 AM KIESELGUHR REGENERATOR OPERATOR Surgery [facility] [address] [place] [address] Jaya Grier MD [address] [facility] [address] [place] [address] ESOPHAGOGASTRODUODENOSCOPY Scheduled Procedures Name Priority Associated Diagnoses Date/Ti me ESOPHAGOGASTRODUODENOSCOPY Anemia, unspecified type Gastritis without bleeding, unspecified chronicity, unspecified gastritis type 07/13/2024 9:00 AM KIESELGUHR REGENERATOR OPERATOR COLONOSCOPY Iron deficiency anemia due to chronic blood loss documented as of this encounter Procedures Procedure Name Priority Date/Time Associated Diagnosis Comments SCAN - RADIOLOGY/IMAGING 11/05/2021 documented in this encounter Results * SCAN - RADIOLOGY/IMAGING (11/05/2021) Anatomical Region Laterality Modality Other Provider Scanning Final Result documented in this encounter Visit Diagnoses Not on filedocumented in this encounter Additional Health Concerns Infection Onset Date Last Indicated Resolved Time COVID: Recovered Comment:Added based on recent COVID infection. 08/24/2021 08/26/2021 12/22/2021 3:05 AM C DT documented as of this encounter Care Teams Assistant Store Manager Trainee Relationship Specialty Start Date End Date Cherelle Corcoran MD PCP - General Family Medicine 08/30/19 Mark Queen MD Consulting Physician Infectious Diseases 01/10/20 documented as of this encounter
--- OUTSIDE RECORDS SUMMARY | 2024-07-04 04:16 | XMS_ITS | Encounter Summary ---
Author Organization [facility] Address [address] [place] [address] Phone Care Team Providers Care Ethylene Plant Operator Name Role Phone Cherelle Corcoran MD Primary Care Pro vider Mark Queen MD Unavailable [phone] Reason for Visit * Reason Onset Date Comments Madhav fell off 10/03/2021 Encounter Details Date Type Department Care Team (Late st Contact Info) Description 10/03/2021 Telephone [facility] Endocrinology Metabolism and Lipid [address] [facility] 5th [place] [address] [place] [address] Yoly Herrera, RN Madhav fell off Social History Tobacco Use Types Packs/Day Years [...] you attend [facility] or judaism services? Never 09/10/2021 Do you [...] file Legal Sex Female 9:03 AM SHANK ARCHER Gender Identity Female 02/08/2020 6:39 PM CDT Sexual Orientation Not on file documented as of this encounter Miscellaneous Notes * Telephone Encounter - Yoly Herrera RN - 10/03/2021 2:18 PM CDT I spoke with the patient's daughter and also Olivier at [facility] pharmacy The patient's Madhav fell off and they were considering changing to Dexcom After I explained the Dexcom system, they want to try the Madhav on the abdomen first They will come into the clinic on 07 October to assist with placing new device. They also want to trythe Skintac to see if it will help keep the sensor in place along with cloth fixic patch documented in this encounter Plan of Treatment Upcoming Encounters Date Type Department Care Team (Latest Contact Info) Description 07/13/2024 9:00 AM SHANK ARCHER Hospital Encounter [facility] [address] [place] [address] Jaya Grier MD [address] [place] [address] [address] [place] [address] 07/13/2024 9:00 AM SHANK ARCHER - 07/13/2024 9:30 AM SHANK ARCHER Surgery [facility] [address] [place] [address] Jaya Grier MD [facility]0 [facility] [address] [place] [address] ESOPHAGOGASTRODUODENOSCOPY Scheduled Procedures Name Priority Associated Diagnoses Date/Ti wi ESOPHAGOGASTRODUODENOSCOPY Anemia, unspecified type Gastritis without bleeding, unspecified chronicity, unspecified gastritis type 07/13/2024 9:00 AM SHANK ARCHER COLONOSCOPY Iron deficiency anemia due to chronic blood loss documented as of this encounter Visit Diagnoses Not on filedocumented in this encounter Additional Health Concerns Infection Onset Date Last Indicated Resolved Time COVID: Recovered Comment:Added based on recent COVID infection. 08/24/2021 08/26/2021 12/22/2021 3:05 AM C DT documented as of this encounter Care Teams Ethylene Plant Operator Relationship Specialty Start Date End Date Cherelle Corcoran MD PCP - General Family Medicine 08/30/19 Mark Queen MD Consulting Physician Infectious Diseases 01/10/20 documented as of this encounter
--- OUTSIDE RECORDS SUMMARY | 2024-07-04 04:17 | XMS_ITS | Encounter Summary ---
Author Organization [facility] Medical Group Address [address] [facility] [address] [place] [address] Care Team Providers Care Family Medicine Physician Name Role Phone Cherelle Corcoran MD Primary Care Pro vider Mark Queen MD Unavailable [phone] Encounter Details Date Type Department Care Team (Late st Contact Info) Description 09/05/2021 Telephone [facility] Primary Care [address] [facility] [address] [place] [address] Cherelle Corcoran MD [facility]4 [facility] [address] [place] [address] Social History Tobacco Use Types Packs/Day Years Used Date Smoking Tobacco: Never Smokeless Tobacco: Never Alcohol Use Standard Drinks/Week Comments Not Currently 0 (1 standard drink = 0.6 oz pur e alcohol) AUDIT-C Answer Date Recorded Q1: How often do you have a drink containing alc ohol? Never 09/06/2021 Average Number of Drinks Not on file 022 Frequency of Binge Drinking Not on file 08/20 PHQ-2 Answer Date Recorded PHQ-2 Total Score (If total score is 3 or more points, staff should administer the PHQ-9) 0 01/08/2021 Comments No Sex and Gender Information Value Date Recorded Sex Assigned at Not on file Legal Sex Female 9:03 AM METER/RELAY TECHNICIAN Gender Identity Female 02/08/2020 6:39 PM CDT Sexual Orientation Not on file documented as of this encounter Miscellaneous Notes * Telephone Encounter - Cherelle Corcoran MD - 09/05/2021 5:13 PM CDT Called and discussed. Shortness of breath stable since last appointment. Appointment scheduled tomorrow at 1015, labs ordered to be done prior to appointment. Strict ED precautions discussed * Telephone Encounter - Poonam Sharma - 09/05/2021 3:16 PM CDT Patient daughter/ Honey is calling for update regarding mom being swollen and in pain. hoping to get her water pill restored Honey/ [phone] Thank you documented in this encounter Plan of Treatment Upcoming Encounters Date Type Department Care Team (Latest Contact Info) Description 07/13/2024 9:00 AM METER/RELAY TECHNICIAN Hospital Encounter [facility] GI Lab [address] [place] [address] Jaya Grier MD [facility]5 [facility] [address] [place] [address] 07/13/2024 9:00 AM METER/RELAY TECHNICIAN - 07/13/2024 9:30 AM METER/RELAY TECHNICIAN Surgery [facility] [address] [place] [address] Jaya Grier MD [address] [facility] [address] [place] [address] ESOPHAGOGASTRODUODENOSCOPY Scheduled Procedures Name Priority Associated Diagnoses Date/Ti me ESOPHAGOGASTRODUODENOSCOPY Anemia, unspecified type Gastritis without bleeding, unspecified chronicity, unspecified gastritis type 07/13/2024 9:00 AM METER/RELAY TECHNICIAN COLONOSCOPY Iron deficiency anemia due to chronic blood loss documented as of this encounter Results * (ABNORMAL) Pro B-type natriuretic peptide (09/06/2021 10:19 AM CDT) NT-proBNP 522(H) <=300 pg/mL [facility] RODRIGES Comment: Interpretive Comments: [...] Last Revised Date: 2018. Testing performed by: [address] [address] Blood 09/06/2021 10:1 9 AM CDT 09/06/2021 10:30 AM CDT Cherelle Corcoran MD LAB BLOOD ORDERAB LES Final Result [facility] [address] [facility] Department [place] [address] * (ABNORMAL) Comprehensive metabolic panel (09/06/2021 10:19 AM CDT) Sodium 143 135 - 145 mmol/L NILSA Comment:Testing performed by : [address] [address] Potassium, pl 4.6 3.3 - 4.9 mmol/L NILSA Comment:Testing performed by : [address] [address] Chloride 109 97 - 110 mmol/L NILSA Comment:Testing performed by : [address] [address] CO2 23 22 - 32 mmol/L NILSA Comment:Testing performed by : [address] [address] Anion gap 11 2 - 15 mmol/L NILSA Comment:Testing performed by : [address] [address] BUN 50(H) 8 - 25 mg/dL NILSA Comment:Testing performed by : [address] [address] Creatinine 2.10(H) 0.60 - 1.10 mg/dL NILSA Comment:Testing performed by : [address] [address] Glucose 247(H) 70 - 199 mg/dL NILSA Comment: Interpretive [...] was last revised 2017. Testing performed by: [address] [address] Calcium 9.1 8.5 - 10.3 mg/dL NILSA Comment:Testing performed by : [address] [address] Bilirubin, total 0.2 0.1 - 1.2 mg/dL NILSA Comment:Testing performed by : [address] [address] Protein, pl 7.1 6.5 - 8.5 g/dL NILSA Comment:Testing performed by : [address] [address] Albumin 3.6 3.5 - 5.0 g/dL NILSA Comment:Testing performed by : [address] [address] Alk phos 134(H) 40 - 130 Units/L NILSA Comment:Testing performed by : [address] [address] ALT 17 7 - 45 Units/L NILSA Comment:Testing performed by : [address] [address] AST 17 10 - 45 Units/L NILSA Comment:Testing performed by : [address] [address] Blood 09/06/2021 10:1 9 AM CDT 09/06/2021 10:30 AM CDT us Cherelle Corcoran MD LAB BLOOD ORDERAB LES Final Result [facility] [address] [facility] Department [place] [address] documented in this encounter Visit Diagnoses Diagnosis Swelling- Primary Localized superficial swelling, mass, or lump Anemia, unspecified type Gastritis without bleeding, unspecified chronicity, unspecified gastritis type documented in this encounter Additional Health Concerns Infection Onset Date Last Indicated Resolved Time COVID: Recovered Comment:Added based on recent COVID infection. 08/24/2021 08/26/2021 12/22/2021 3:05 AM C DT documented as of this encounter Care Teams Family Medicine Physician Relationship Specialty Start Date End Date Cherelle Corcoran MD PCP - General Family Medicine 08/30/19 Mark Queen MD Consulting Physician Infectious Diseases 01/10/20 documented as of this encounter
--- OUTSIDE RECORDS SUMMARY | 2024-07-04 04:17 | XMS_ITS | Encounter Summary ---
Author Organization [facility] Healthcare Address [address] [place] [address] Care Team Providers Care Global Compensation Director Name Role Phone Cherelle Corcoran MD Primary Care Pro vider Mark Queen MD Unavailable [phone] Encounter Details Date Type Department Care Team (Latest Contact Info) Description 09/10/2021 8:30 AM CDT - 09/10/2021 11:59 PM CDT Hospital Encounter [facility] [address] [place] [address] Discharge Disposition: Discharge to home or self [...] No 09/10/2021 Housing Stability Vital Sign Answer Fuentse e Recorded In the last 12 months, [...] file Legal Sex Female 9:03 AM AIR INTELLIGENCE SPECIALIST Gender Identity Female 02/08/2020 6:39 PM CDT Sexual Orientation Not on file documented as of this encounter Medications at Time of Discharge acetaminophen (TYLENOL) 325 mg tabletIndications:F ever,Pain Take 2 tablets (650 mg total) by mouth every 4 (four) hours as needed for pain 60 tablet 09/18/2021 2 glucose 4 gram chewable tabletIndications:U ncontrolled type 2 diabetes mellitus with hyperglycemia (HCC) Take 4 tablets (16 g total) by mouth as needed for low blood sugar (less than 70) and let Dr. Corcoran know! 50 tablet 10/16/2020 2 lidocaine (LIDODERM) 5 %Indications:Chroni c back pain, unspecified back location, unspecified back pain laterality Place 1 patch on the skin daily Apply to painful area 12 hours per day, remove for 12 hours. 90 patch 1 04/05/2021 2 amLODIPine (NORVASC) 10 mg tablet Take 10 mg by mouth daily 2 atorvastatin (LIPITOR) 40 mg tablet Take 1 tablet (40 mg total) by mouth daily 90 tablet 3 02/18/2021 2 BD Arlyn 2nd Gen Pen Needle 32 gauge x 5/32 needleIndications:T ype 2 diabetes mellitus with diabetic neuropathy, with long-term current use of insulin (HCC) USE TO INJECT BASAGLAR EVERY NIGHT AT BEDTIME 06/25/2021 3 blood pressure monitor kit Check BP as instructed 1 kit 03/20/2021 3 capsaicin (ZOSTRIX) 0.025 % cream Apply topically 2 (two) times a day 60 g 08/13/2021 3 carvediloL (COREG) 12.5 mg tablet Take 1 tablet (12.5 mg total) by mouth 2 (two) times a day with meals 60 tablet 11 09/18/2021 2 conner.stocking,th igh,reg,med miscIndications:Per ipheral edema Wear as much as possible 2 each 1 05/28/2021 4 dulaglutide (TRULICITY) 0.75 mg/0.5 mL pen injectorIndications :Type 2 diabetes mellitus with diabetic neuropathy, with long-term current use of insulin (HCC) Inject 0.5 mL (0.75 mg total) under the skin once a week 2 mL 09/02/2021 2 famotidine (PEPCID) 20 mg tablet Take 1 tablet (20 mg total) by mouth daily 30 tablet 11 09/19/2021 2 famotidine (PEPCID) 40 mg tabletIndications:G astroesophageal reflux disease, unspecified whether esophagitis present Take 1 tablet (40 mg total) by mouth daily 90 tablet 3 07/02/2021 2 ferrous sulfate 325 mg (65 mg of elemental iron) tabletIndications:I audrey Deficiency Anemia Take 1 tablet (325 mg total) by mouth daily with breakfast 30 tablet 11 09/19/2021 2 furosemide (LASIX) 40 mg tablet Take 1 tablet (40 mg total) by mouth 2 (two) times a day 60 tablet 11 09/18/2021 2 insulin glargine (LANTUS, SEMGLEE) 100 unit/mL vial for injectionIndication s:Diabetes Mellitus Inject 18 Units under the skin nightly 10 mL 08/14/2021 2 insulin glargine (LANTUS, SEMGLEE) 100 unit/mL vial for injectionIndication s:Diabetes Mellitus Inject 25 Units under the skin nightly 7.5 mL 11 09/18/2021 2 insulin lispro (HumaLOG, ADMELOG) 100 unit/mL pen for injection Inject 0-10 Units under the skin 3 (three) times a day with meals 15 mL 09/18/2021 2 insulin lispro (HumaLOG, ADMELOG) 100 unit/mL pen for injection Inject 1-4 Units under the skin 3 (three) times a day with meals (1 unit for every 50 mg/dL blood glucose greater than 150 mg/dL up to max 4 units) Refer to After Visit Summary for Sliding Scale Insulin Instructions. 3.6 mL 09/18/2021 2 insulin lispro (HumaLOG, ADMELOG) 100 unit/mL pen for injection Inject 8 Units under the skin 3 (three) times a day with meals 7.2 mL 09/18/2021 2 insulin lispro (HumaLOG, ADMELOG) 100 unit/mL vial for injectionIndication s:Diabetes Mellitus Inject 5.31 Units under the skin 3 (three) times a day with meals 10 mL 08/13/2021 2 insulin lispro (HumaLOG, ADMELOG) 100 unit/mL vial for injectionIndication s:Diabetes Mellitus Inject 0-10 Units under the skin 3 (three) times a day with meals 10 mL 08/13/2021 2 insulin lispro (HumaLOG, ADMELOG) 100 unit/mL vial for injectionIndication s:Diabetes Mellitus Inject 0-5 Units under the skin nightly 10 mL 08/13/2021 2 lancets miscIndications:Unc ontrolled type 2 diabetes mellitus with hyperglycemia (HCC) Check blood sugar up to 3 times a day 100 each 3 11/13/2020 3 miscellaneous medical supply (Blood Pressure Cuff) miscIndications:Hyp ertension associated with diabetes (HCC) Use to check blood pressure daily 1 each 1 05/28/2021 2 multivitamin with minerals tablet Take 1 tablet by mouth daily 3 neomycin-polymyxin- dexAMETHasone (MAXITROL) 3.5mg/mL-10,000 unit/mL-0.1 % ophthalmic suspension 05/24/2021 2 OneTouch Verio test strips stripIndications:Un controlled type 2 diabetes mellitus with hyperglycemia (HCC) TEST 3 TO 4 TIMES DAILY 400 each 1 06/25/2021 3 polyethylene glycol (MIRALAX) 17 gram packet Take 1 packet (17 g total) by mouth daily 08/14/2021 3 pregabalin (LYRICA) 150 mg capsuleIndications: Other diabetic neurological complication associated with type [...] Contact Info) Description 07/13/2024 9:00 AM AIR INTELLIGENCE SPECIALIST Hospital Encounter [facility] [address] [place] [address] Jaya Grier MD [address] [facility] [address] [place] [address] 07/13/2024 9:00 AM AIR INTELLIGENCE SPECIALIST - 07/13/2024 9:30 AM AIR INTELLIGENCE SPECIALIST Surgery [facility] [address] [place] [address] Jaya Grier MD [address] [facility] [place] [address] ESOPHAGOGASTRODUODENOSCOPY Scheduled Procedures Name Priority Associated Diagnoses Date/Ti me ESOPHAGOGASTRODUODENOSCOPY Anemia, unspecified type Gastritis without bleeding, unspecified chronicity, unspecified gastritis type 07/13/2024 9:00 AM AIR INTELLIGENCE SPECIALIST COLONOSCOPY Iron deficiency anemia due to chronic blood loss documented as of this encounter Procedures Procedure Name Priority Date/Time Associated Diagnosis Comments TRANSTHORACIC ECHO (TTE) COMPLETE W DOPPLER/CF W CONTRAST Routine 09/10/2021 10:28 AM CDT documented in this encounter Visit Diagnoses Not on filedocumented in this encounter Administered Medications Inactive Administered Medications - up to 3 most recent administrations Medication Order MAR Action Action Date Dose Rate Site perflutren protein-a (OPTISON) 3 mL in sodium chloride 0.9% 8 mL syringe 1-8 mL, intravenous, Once in imaging, contrast, Starting on Thu09/10/21 at 0922, For 1 dose, Intra-Procedure (CV) Contrast Given 09/10/2021 10:28 AM CDT 3 mL documented in this encounter Additional Health Concerns Infection Onset Date Last Indicated Resolved Time COVID: Recovered Comment:Added based on recent COVID infection. 08/24/2021 08/26/2021 12/22/2021 3:05 AM C DT documented as of this encounter Care Teams Global Compensation Director Relationship Specialty Start Date End Date Cherelle Corcoran MD PCP - General Family Medicine 08/30/19 Mark Queen MD Consulting Physician Infectious Diseases 01/10/20 documented as of this encounter
--- OUTSIDE RECORDS SUMMARY | 2024-07-04 04:17 | XMS_ITS | Encounter Summary ---
Author Organization [facility] Address [address] [facility] [address] [place] [address] Phone Care Team Providers Care Furnace Erector Name Role Phone Cherelle Corcoran MD Primary Care Pro vider Mark Queen MD Unavailable [phone] Reason for Visit * Consultation (Routine) - Closed Specialty Diagnoses / Procedures Referred By Maryse lama Referred To Contact Endocrinology Diagnoses Type 2 diabetes mellitus with diabetic neuropathy, with long-term current use of insulin (HCC) Cherelle Corcoran MD Phone: tel: fax: [facility] (All Locations) Referral ID Status Reason Start Date Expiration Date V isits Requested Visits Authorized [id number] Closed Specialty Services Required 08/05/2021 09/04/2022 1 1 Encounter Details Date Type Department Care Team (Latest Contact Info) Description 08/19/2021 8:00 AM MANAGER FILTER Office Visit [facility] Endocrinology Metabolism and Lipid [address] [place] [address] [place] [address] Anant Kauffman MD [address] [facility] [id number] [place] [address] Stage 3b chronic kidney disease (HCC) (Primary Dx); Type 2 diabetes mellitus [...] have a drink containing alc ohol? Never 08/05/2021 Average Number of Drinks Not on file 022 Frequency of Binge Drinking Not on file 07/23 PHQ-2 Answer Date Recorded PHQ-2 Total Score (If total score is 3 or more points, staff should administer the PHQ-9) 0 01/08/2021 Comments No Sex and Gender Information Value Date Recorded Sex Assigned at Not on file Legal Sex Female 9:03 AM MANAGER FILTER Gender Identity Female 02/08/2020 6:39 PM CDT Sexual Orientation Not on file documented as of this encounter Last Filed Vital Signs Vital Sign Reading Time Taken Comments Blood Pressure 151/78 08/19/2021 8:31 AM MANAGER FILTER Pulse 77 08/19/2021 8:31 AM MANAGER FILTER Temperature 36.7 ??C (98.1 ??F) 08/19/2021 8:31 AM CS T Respiratory Rate - - Oxygen Saturation - - Inhaled Oxygen Concentration - - Weight 64.6 kg (142 lb 6.4 oz) 08/19/2021 8:31 A M MANAGER FILTER Height 157.5 cm (5' 2 ) 08/19/2021 8:31 AM MANAGER FILTER Body Mass Index 26.05 08/19/2021 8:31 AM MANAGER FILTER documented in this encounter Patient Instructions * Patient Instructions* Anant Kauffman MD - 08/19/2021 8:00 AM MANAGER FILTER Lantus 18 units daily Humalog 5 unit with meals + Sliding scale insulin Add 1 unit humalog if BG is between 150-199 mg/dl Add 2 unit humalog if BG is between 200-249 mg/dl Add 3 unit humalog if BG is between 250-299 mg/dl Add 4 unit humalog if BG is between 300-349 mg/dl Add 5 unit humalog if BG is between 350-399 mg/dl Add 6 unit humalog if BG is >400 mg/dl Diabetic Diet , carbohydrates per meal 60 gm GER FILTER GER FILTER documented in this encounter Progress Notes * Anant Kauffman MD - 08/19/2021 8:00 AM CST Images from the original note were not included. Endocrine New Patient Visit Subjective Patient is a 70 y.o. female presenting for evaluation and management of Type II DM . She is referred by her PCP Dr Cherelle Corcoran HPI: 70 y old female with PMH of Type II DM, HTn,HDL , mood disorder is here with her daughter for further management of her Diabetes. Brief history : Type II DM was diagnosed about 30 years ago She used to be on lantus 60 units , Trulicity 4.5 mg and Jardiance 25 mg She was recently hospitalized between 08/07/21 -- 08/14/21 with fatigue , acute on chronic kidney disease , . During hospitalization , she was on lantus 15 units and humalog 5 units She currently is at a SNF and has bee taking lantus 18 units and sliding scale humalog She has been checking her BG 1-2 She has neuropathy Last eye exam 05/2021 , no DR She denied having any low Bg recently Denied any recent wt changes 08/08/21 S cr 1.72 08/05/21 A1c 8 [...] in the HPI Objective Vitals: Vitals BP 151/78 Pulse 77 Temp 36.7 ??C (98.1 ??F) Ht 157.5 cm (5' 2 ) Wt 64.6 kg (142 lb 6.4 oz) BMI 26.05 kg/m?? Physical exam: General Appearance: Alert, cooperative, [...] Review: Lab Results Component Value Date TSH 1.54 02/07/2021 Lab Results Component Value Date CHOL 133 02/07/2021 TRIG 147 02/07/2021 HDL 51 02/07/2021 Lab Results Component Value Date PTH 36.0 02/07/2021 Recent Labs Lab Units 08/14/21 1711 08/14/21 1118 08/14/21 0655 08/13/21195708/13/21 1703 08/13/21 1142 08/13/21 0750 08/12/21195708/12/21 1656 08/12/21 1145 POC GLUCOSE MONITOR mg/dL 176 133 156 180 230* 254* 173 153 192 220* Assessment/Plan: 70 y old female with PMH of Type II DM, HTn,HDL , mood disorder is here with her daughter for further management of her Diabetes. Type II Dm Type II DM was diagnosed about 30 years ago She used to be on lantus 60 units , Trulicity 4.5 mg and Jardiance 25 mg She was recently hospitalized between 08/07/21 -- 08/14/21 with fatigue , weakness and acute on chronic renal failure , . During hospitalization , she was on lantus 15 units and humalog 5 units She currently is at a SNF and has been taking lantus 18 units and sliding scale humalog Plan : Recommended to be on diabetic diet at the senior living . Limit carbohydrates to 60 gm per meal. To simplify her regimen, will start her an insulin regimen at approx 0.5 units per kg body weight Continue with lantus 18 units, will add humalog 5 units with meals and SSI 1:50 for BG > 150 mg/dl Asked her to check her BG 4 times/ day and send us her Bg log in 1 week for insulin dose adjustment. Once her appetite improves, she starts eating consistently , will consider putting her back on Trulicity . She also has CKD with albuminuria . Used to be on jardiance was stopped 2/2 STEFANO. Will consider restarting jardiance at later date once s creatinine stabilizes UTD with eye exam no 08/05/21 A1c 8 Alb/creat 1478 Hyperlipidemia : 02/07/21 Tc 133 Trig 147 HDL 51 LDL 53 On Atorvastatin 40 mg Continue same CKD With microalbuminuria Jardiance on hold 2/2 STEFANO Will consider starting low jardiance at later date , given its renal protective role Problem List Cardiac and Vasculature Hyperlipidemia associated with type 2 diabetes mellitus (HCC) Endocrine and Metabolic Type 2 diabetes mellitus with diabetic neuropathy, with long-term current use of insulin (CMS/HCC) (HCC) Relevant Orders POCT glucose Genitourinary and Reproductive Stage 3b chronic kidney disease (HCC) - Primary GER FILTER documented in this encounter Plan of Treatment Upcoming Encounters Date Type Department Care Team (Latest Contact Info) Description 07/13/2024 9:00 AM MANAGER FILTER Hospital Encounter [facility] [address] [place] [address] [place] [address] [place] [address] [address] [place] [address] 07/13/2024 9:00 AM MANAGER FILTER - 07/13/2024 9:30 AM MANAGER FILTER Surgery [facility] [address] [place] [address] Jaya Grier MD [address] [place] [address] ESOPHAGOGASTRODUODENOSCOPY Scheduled Procedures Name Priority Associated Diagnoses Date/Ti me ESOPHAGOGASTRODUODENOSCOPY Anemia, unspecified type Gastritis without bleeding, unspecified chronicity, unspecified gastritis type 07/13/2024 9:00 AM MANAGER FILTER COLONOSCOPY Iron deficiency anemia due to chronic blood loss documented as of this encounter Procedures Procedure Name Priority Date/Time Associated Diagnosis Comments POCT GLUCOSE 66418 Routine 08/19/2021 8: 47 AM MANAGER FILTER Type 2 diabetes mellitus with diabetic neuropathy, with long-term current use of insulin ([facility]/HCC) (HCC) documented in this encounter Results * POCT glucose (08/19/2021 8:47 AM MANAGER FILTER) Glucose Blood, POC 260 mg/dL Blood specimen (specimen) 08/19/2021 8:47 AM MANAGER FILTER Anant Kauffman MD POINT OF CARE TEST ORDERABLE S Final Result documented in this encounter Visit Diagnoses Diagnosis Stage 3b chronic kidney disease (HCC)- Primary Type 2 diabetes mellitus with diabetic neuropathy, with long-term current use of insulin ([facility]) Hyperlipidemia associated with type 2 diabetes mellitus ([facility]) Anemia, unspecified type Gastritis without bleeding, unspecified chronicity, unspecified gastritis type documented in this encounter Historical Medications * This list may reflect changes made after this encounter. Medication Sig Dispense Quantity Refills Last Filled Start D ate End Date meclizine (ANTIVERT) 25 mg tablet 08/04/2021 09/06/2021 added in this encounter Orders Outpatient Referral Count Last Ordered Date Fir st Ordered Date AMB REFERRAL TO ENDOCRINOLOGY 1 08/19/2021 documented in this encounter Additional Health Concerns Infection Onset Date Last Indicated Resolved Time COVID19 08/13/2021 08/13/2021 08/24/2021 3:05 AM MANAGER FILTER documented as of this encounter Care Teams Furnace Erector Relationship Specialty Start Date End Date Cherelle Corcoran MD PCP - General Family Medicine 08/30/19 Mark Queen MD Consulting Physician Infectious Diseases 01/10/20 documented as of this encounter
--- OUTSIDE RECORDS SUMMARY | 2024-07-04 04:17 | XMS_ITS | Encounter Summary ---
Author Organization [facility] Address [address] [place] [address] Phone Care Team Providers Care University Relations Director Name Role Phone Cherelle Corcoran MD Primary Care Pro vider Mark Queen MD Unavailable [phone] Reason for Visit * Reason Onset Date Comments BG Log 09/06/2021 Encounter Details Date Type Department Care Team (Late st Contact Info) Description 09/06/2021 Telephone [facility] Endocrinology Metabolism and Lipid [address] [facility] 5th [place] [address] [place] [address] Yoly Herrera, RN BG Log Social History Tobacco Use Types Packs/Day Years [...] on file Legal Sex Female 9:03 AM BOX GLUER Gender Identity Female 02/08/2020 6:39 PM CDT Sexual Orientation Not on file documented as of this encounter Miscellaneous Notes * Telephone Encounter - Yoly Herrera RN - 09/06/2021 7:52 PM CDT Images from the original note were not included. History: 70 y old female with PMH of Type II DM, HTn,HDL , mood disorder came to see Dr Kauffman on 08/19/2021 with her daughter for further management of her Diabetes. The patient has been at 2 different SNF ([facility] and then [facility]) and they daughter was not happy with her care and said they forget to given her medications (BP) [place] faxed BG readings and recent labs this past week The patient was discharged from the SNF on 09/04 and returned home She was re-started on her Trulicity 0.75 mg after discussing elevated readings with her PCP Her daughter was not sure on doses of insulin given while she was in the SNF, and she had very highglucose readings After the patient was discharged, she started having increased swelling and went to the ER today and is pending admission to evaluate for STEFANO on CKD, and heart failure Diabetic Medications: Lantus 15 units daily (should have been 18 units per last note) Humalog 5 units with meals along with SSI Add 1 unit humalog if BG is between 150-199 mg/dl Add 2 unit humalog if BG is between 200-249 mg/dl Add 3 unit humalog if BG is between 250-299 mg/dl Add 4 unit humalog if BG is between 300-349 mg/dl Add 5 unit humalog if BG is between 350-399 mg/dl Add 6 unit humalog if BG is >400 mg/dl ?? Next appointment: 10/01/2021 Readings: Plan: - I spoke with the daughter and advised her to ask for the diabetes team to follow her mother whileinpatient, and to follow-up with us after she is discharged - Clinic contact information given Cosigned by Anant Kauffman MD at 09/09/2021 5:01 PM CDT documented in this encounter Plan of Treatment Upcoming Encounters Date Type Department Care Team (Latest Contact Info) Description 07/13/2024 9:00 AM BOX GLUER Hospital Encounter [facility] [address] [place] [address] Jaya Grier MD [address] [facility] [address] [address] [place] [address] 07/13/2024 9:00 AM BOX GLUER - 07/13/2024 9:30 AM BOX GLUER Surgery [facility] [address] [place] [address] Jaya Grier MD [address] [facility] [address] [place] [address] ESOPHAGOGASTRODUODENOSCOPY Scheduled Procedures Name Priority Associated Diagnoses Date/Ti sc ESOPHAGOGASTRODUODENOSCOPY Anemia, unspecified type Gastritis without bleeding, unspecified chronicity, unspecified gastritis type 07/13/2024 9:00 AM BOX GLUER COLONOSCOPY Iron deficiency anemia due to chronic blood loss documented as of this encounter Visit Diagnoses Not on filedocumented in this encounter Additional Health Concerns Infection Onset Date Last Indicated Resolved Time COVID: Recovered Comment:Added based on recent COVID infection. 08/24/2021 08/26/2021 12/22/2021 3:05 AM C DT documented as of this encounter Care Teams University Relations Director Relationship Specialty Start Date End Date Cherelle Corcoran MD PCP - General Family Medicine 08/30/19 Mark Queen MD Consulting Physician Infectious Diseases 01/10/20 documented as of this encounter
--- OUTSIDE RECORDS SUMMARY | 2024-07-04 04:17 | XMS_ITS | Encounter Summary ---
Author Organization [facility] Address [address] [place] [address] Care Team Providers Care Temperature Control Inspector Name Role Phone Cherelle Corcoran MD Primary Care Pro vider Mark Queen MD Unavailable [phone] Encounter Details Date Type Department Care Team (Late st Contact Info) Description 08/30/2021 Orders Only [facility] Health Information Management [address] [place] [address] Scanning, Provider Social History Tobacco [...] attend chur ch or buddhist services? Never 09/10/2021 Do you [...] on file Legal Sex Female 9:03 AM MAKEUP ARTISTRY INSTRUCTOR Gender Identity Female 02/08/2020 6:39 PM CDT Sexual Orientation Not on file documented as of this encounter Plan of Treatment Upcoming Encounters Date Type Department Care Team (Latest Contact Info) Description 07/13/2024 9:00 AM MAKEUP ARTISTRY INSTRUCTOR Hospital Encounter [facility] [address] [place] [address] Jaya Grier MD [address] [facility] [address] [place] [address] 07/13/2024 9:00 AM MAKEUP ARTISTRY INSTRUCTOR - 07/13/2024 9:30 AM MAKEUP ARTISTRY INSTRUCTOR Surgery [facility] [address] [place] [address] Jaya Grier MD [address] [facility] [address] [place] [address] ESOPHAGOGASTRODUODENOSCOPY Scheduled Procedures Name Priority Associated Diagnoses Date/Ti me ESOPHAGOGASTRODUODENOSCOPY Anemia, unspecified type Gastritis without bleeding, unspecified chronicity, unspecified gastritis type 07/13/2024 9:00 AM MAKEUP ARTISTRY INSTRUCTOR COLONOSCOPY Iron deficiency anemia due to chronic blood loss documented as of this encounter Procedures Procedure Name Priority Date/Time Associated Diagnosis Comments SCAN - LABS 08/30/2021 documented in this encounter Results * SCAN - LABS (08/30/2021) us Provider Scanning Final Result documented in this encounter Visit Diagnoses Not on filedocumented in this encounter Additional Health Concerns Infection Onset Date Last Indicated Resolved Time COVID: Recovered Comment:Added based on recent COVID infection. 08/24/2021 08/26/2021 12/22/2021 3:05 AM C DT documented as of this encounter Care Teams Temperature Control Inspector Relationship Specialty Start Date End Date Cherelle Corcoran MD PCP - General Family Medicine 08/30/19 Mark Queen MD Consulting Physician Infectious Diseases 01/10/20 documented as of this encounter
--- OUTSIDE RECORDS SUMMARY | 2024-07-04 04:17 | XMS_ITS | Encounter Summary ---
Author Organization [facility] Address [address] [place] [address] Care Team Providers Care Lab Support Tech Name Role Phone Cherelle Corcoran MD Primary Care Pro vider Mark Queen MD Unavailable [phone] Encounter Details Date Type Department Care Team (Late st Contact Info) Description 08/26/2021 Telephone [facility] Primary Care [address] [facility] [address] [place] [address] Cherelle Corcoran MD [facility]4 [facility] [address] [place] [address] Social History Tobacco Use Types [...] on file Legal Sex Female 9:03 AM UMBRELLA SUPERVISOR Gender Identity Female 02/08/2020 6:39 PM CDT Sexual Orientation Not on file documented as of this encounter Miscellaneous Notes * Telephone Encounter - Sandy Mota MA - 09/03/2021 8:34 AM CDT Pt was seen yesterday. * Telephone Encounter - Sandy Mota MA - 08/26/2021 2:24 PM CST Lmov for pt daughter to call back and ask for brittney to triage please ELLA SUPERVISOR * Telephone Encounter - Cherelle Corcoran MD - 08/26/2021 1:18 PM CST Need more information, what concerns does she have, what have blood sugar been, etc ELLA SUPERVISOR * Telephone Encounter - Sandy Mota MA - 08/26/2021 12:21 PM CST Please advise. ELLA SUPERVISOR * Telephone Encounter - Tena Roman - 08/26/2021 11:34 AM CST Patient/daughter Areli stated that her mom was at [facility] last week, they change her insulin, she would like to speak with the DR concerning the amount of insulin she is taking Pt daughter CB# [phone] ELLA SUPERVISOR documented in this encounter Plan of Treatment Upcoming Encounters Date Type Department Care Team (Latest Contact Info) Description 07/13/2024 9:00 AM UMBRELLA SUPERVISOR Hospital Encounter [facility] [address] [place] [address] Jaya Grier MD [address] [facility] [address] [place] [address] 07/13/2024 9:00 AM UMBRELLA SUPERVISOR - 07/13/2024 9:30 AM UMBRELLA SUPERVISOR Surgery [facility] [address] [place] [address] Jaya Grier MD [address] [facility] [address] [place] [address] ESOPHAGOGASTRODUODENOSCOPY Scheduled Procedures Name Priority Associated Diagnoses Date/Ti me ESOPHAGOGASTRODUODENOSCOPY Anemia, unspecified type Gastritis without bleeding, unspecified chronicity, unspecified gastritis type 07/13/2024 9:00 AM UMBRELLA SUPERVISOR COLONOSCOPY Iron deficiency anemia due to chronic blood loss documented as of this encounter Visit Diagnoses Not on filedocumented in this encounter Additional Health Concerns Infection Onset Date Last Indicated Resolved Time COVID: Recovered Comment:Added based on recent COVID infection. 08/24/2021 08/26/2021 12/22/2021 3:05 AM C DT documented as of this encounter Care Teams Lab Support Tech Relationship Specialty Start Date End Date Cherelle Corcoran MD PCP - General Family Medicine 08/30/19 Mark Queen MD Consulting Physician Infectious Diseases 01/10/20 documented as of this encounter
--- OUTSIDE RECORDS SUMMARY | 2024-07-04 04:17 | XMS_ITS | Encounter Summary ---
Author Organization [facility] Address [address] [place] [address] Care Team Providers Care Motor Builder Winder Name Role Phone Cherelle Corcoran MD Primary Care Pro vider Mark Queen MD Unavailable [phone] Encounter Details Date Type Department Care Team (Late st Contact Info) Description 09/02/2021 5:15 PM CDT Lab [facility] [address] [place] [id number] Cold intolerance Social History Tobacco Use Types Packs/Day Years [...] on file Legal Sex Female 9:03 AM SUGAR GRINDER Gender Identity Female 02/08/2020 6:39 PM CDT Sexual Orientation Not on file documented as of this encounter Plan of Treatment Upcoming Encounters Date Type Department Care Team (Latest Contact Info) Description 07/13/2024 9:00 AM SUGAR GRINDER Hospital Encounter [facility] [address] [place] [address] Jaya Grier MD [address] [facility] [address] [place] [address] 07/13/2024 9:00 AM SUGAR GRINDER - 07/13/2024 9:30 AM SUGAR GRINDER Surgery [facility] [address] [place] [address] Jaya Grier MD [address] [facility] [address] [place] [address] ESOPHAGOGASTRODUODENOSCOPY Scheduled Procedures Name Priority Associated Diagnoses Date/Ti me ESOPHAGOGASTRODUODENOSCOPY Anemia, unspecified type Gastritis without bleeding, unspecified chronicity, unspecified gastritis type 07/13/2024 9:00 AM SUGAR GRINDER COLONOSCOPY Iron deficiency anemia due to chronic blood loss documented as of this encounter Procedures Procedure Name Priority Date/Time Associated Diagnosis Comments THYROID FUNCTION CASCADE Routine 09/02/2021 5:44 PM CDT Cold intolerance IRON PROFILE W/ IBC Routine 09/02/2021 5 :44 PM CDT Cold intolerance documented in this encounter Results * (ABNORMAL) Iron profile w/ IBC (09/02/2021 5:44 PM CDT) Iron 30(L) 35 - 145 mcg/dL N[facility] Comment:Testing performed by : [address] [address] TIBC 188(L) 250 - 400 mcg/dL N[facility] Comment:Testing performed by : [address] [address] Transferrin saturation 16(L) 20 - 50 % NILSA Comment:Testing performed by : [address] [address] Blood 09/02/2021 5:44 PM CDT 09/02/2021 6:20 PM CDT Cherelle Corcoran MD LAB BLOOD ORDERAB LES Final Result Performing Organization Address [facility] Co de Phone Number [address] [address] * TSH reflex to free T4 (09/02/2021 5:44 PM CDT) TSH 1.52 0.30 - 4.20 mcIUnit/mL [facility] Comment:Testing performed by : [facility], [address] [place] [address]., [address] Blood 09/02/2021 5:44 PM CDT 09/02/2021 6:20 PM CDT Cherelle Corcoran MD LAB BLOOD ORDERAB LES Final Result Performing Organization Address [facility] de Phone Number [address] [address] documented in this encounter Visit Diagnoses Diagnosis Cold intolerance Other general symptoms Anemia, unspecified type Gastritis without bleeding, unspecified chronicity, unspecified gastritis type documented in this encounter Additional Health Concerns Infection Onset Date Last Indicated Resolved Time COVID: Recovered Comment:Added based on recent COVID infection. 08/24/2021 08/26/2021 12/22/2021 3:05 AM CDT documented as of this encounter Care Teams Motor Builder Winder Relationship Specialty Start Date End Date Cherelle Corcoran MD PCP - General Family Medicine 08/30/19 Mark Queen MD Consulting Physician Infectious Diseases 01/10/20 documented as of this encounter
--- OUTSIDE RECORDS SUMMARY | 2024-07-04 04:17 | XMS_ITS | Encounter Summary ---
Author Organization [facility] Address [address] [facility] [address] [facility] [address] [place] [address] Care Team Providers Care Hand Bootmaker Name Role Phone Cherelle Corcoran MD Primary Care Pro vider Mark Queen MD Unavailable [phone] Reason for Visit * Reason Comments Edema Encounter Details Date Type Department Care Team ([facility] st Contact Info) Description 09/06/2021 10:15 AM CDT Office Visit [facility] Primary Care [address] [facility] [address] [place] [address] Cherelle Corcoran MD [address] [place] [address] [address] [place] [address] Generalized edema (Primary Dx); STEFANO (acute kidney injury) (CMS/HCC) ([facility]) Social History Tobacco Use Types Packs/Day Years [...] on file Legal Sex Female 9:03 AM ADMINISTRATIVE PERSONAL ASSISTANT Gender Identity Female 02/08/2020 6:39 PM CDT Sexual Orientation Not on file documented as of this encounter Last Filed Vital Signs Vital Sign Reading Time Taken Comments Blood Pressure 122/82 09/06/2021 10:49 AM CDT Pulse 88 09/06/2021 10:49 AM CDT Temperature 36.1 ??C (97 ??F) 09/06/2021 10:49 AM CDT Respiratory Rate 18 09/06/2021 10:49 AM CDT Oxygen Saturation 97% 09/06/2021 10:49 AM CDT Inhaled Oxygen Concentration - - Weight 73.3 kg (161 lb 8 oz) 09/06/2021 10:49 AM CDT Height 157.5 cm (5' 2 ) 09/06/2021 10:49 AM CDT Body Mass Index 29.54 09/06/2021 10:49 AM CDT documented in this encounter Progress Notes * Cherelle Corcoran MD - 09/06/2021 10:15 AM CDT Images from the original note were not included. Assessment/Plan: Assessment/Plan Diagnoses and all orders for this visit: Generalized edema (Primary) Comments: Weight up 6lbs since last visit Cxr 09/02 wnl, but daughter notes worsening cough/sob Awaiting Bnp, but creatinine elevated to 2.1, which makes it difficult to treat outpatient Advise ED evaluation STEFANO (acute kidney injury) (CMS/HCC) ([facility]) Comments: Cr 2.1 with worsening edema, advise ED, daughter notes understanding and agreement, plans to take her back to [place] Follow up after ED evaluation My total encounter time on 09/06/2021 was 45 minutes which was spent in the activities documented inthe note. This includes time spent prior to the visit and after the visit in direct care of the patient. This time does not include time spent in any separately reportable services. Subjective: Barbara Chakraborty is a 70 y.o. female here for worsening swelling HPI Chief Complaint Patient presents with ??? Edema Recently hospitalized for leg weakness, during which she had STEFANO, with creatinine 1.65 upon d/c. Hydrochlorothiazide held upon d/c. Has been having worsening swelling, progressive since last appointment 09/02. Has been having cough and shortness of breath, had normal chest XR on 09/02, but daughter notes it seems worse. Diabetes mellitus uncontrolled with non diabetic diet at SNF. Recently d/c home with daughter, difficulty taking short acting insulin given schizophrenia and daughter not always home. Restarted trulicity yesterday Review of Systems Respiratory: Positive for cough and shortness of breath. Cardiovascular: Positive for leg swelling. Objective: Vital signs were reviewed. Vitals: 09/06/21 1049 BP: 122/82 BP Location: Left arm Patient Position: Sitting Pulse: 88 Resp: 18 Temp: 36.1 ??C (97 ??F) TempSrc: Temporal SpO2: 97% Weight: 73.3 kg (161 lb 8 oz) Height: 157.5 cm (5' 2 ) Physical Exam Gen: NAD, comfortable, appears as stated age Eyes: no conjunctival injection, EOMI ENMT: external ears symmetric CV: Regular rate and rhythm, no murmurs, rubs or gallops Pulm: no increased work of breathing, clear to asculation bilaterally, no wheezing, rhonchi or rales Skin: no rashes or nodules, warm and dry MSK/Neuro: symmetric limb movement, bilateral hands swollen Psych: alert and oriented to person/place/time, appropriate judgment and insight Cherelle Corcoran MD documented in this encounter Plan of Treatment Upcoming Encounters Date Type Department Care Team (Latest Contact Info) Description 07/13/2024 9:00 AM [facility] Hospital Encounter [facility] [address] [place] [address] Jaya Grier MD [address] [facility] [place] [address] 07/13/2024 9:00 AM ADMINISTRATIVE PERSONAL ASSISTANT - 07/13/2024 9:30 AM ADMINISTRATIVE PERSONAL ASSISTANT Surgery [facility] [address] [place] [address] Jaya Grier MD [address] [facility] [place] [address] ESOPHAGOGASTRODUODENOSCOPY Scheduled Procedures Name Priority Associated Diagnoses Date/Ti me ESOPHAGOGASTRODUODENOSCOPY Anemia, unspecified type Gastritis without bleeding, unspecified chronicity, unspecified gastritis type 07/13/2024 9:00 AM ADMINISTRATIVE PERSONAL ASSISTANT COLONOSCOPY Iron deficiency anemia due to chronic blood loss documented as of this encounter Visit Diagnoses Diagnosis Generalized edema- Primary Edema STEFANO (acute kidney injury) (HCC) Anemia, unspecified type Gastritis without bleeding, unspecified chronicity, unspecified gastritis type documented in this encounter Additional Health Concerns Infection Onset Date Last Indicated Resolved Time COVID: Recovered Comment:Added based on recent COVID infection. 08/24/2021 08/26/2021 12/22/2021 3:05 AM C DT documented as of this encounter Care Teams Hand Bootmaker Relationship Specialty Start Date End Date Cherelle Corcoran MD PCP - General Family Medicine 08/30/19 Mark Queen MD Consulting Physician Infectious Diseases 01/10/20 documented as of this encounter
--- OUTSIDE RECORDS SUMMARY | 2024-07-04 04:17 | XMS_ITS | Encounter Summary ---
Author Organization [facility] Address [address] [place] [address] Care Team Providers Care Associate Professor Of Chemistry Name Role Phone Cherelle Corcoran MD Primary Care Pro vider Mark Queen MD Unavailable [phone] Reason for Referral * Diagnostic Imaging (Routine) - Closed Specialty Diagnoses / Procedures Referred By Maryse t Referred To Contact Diagnoses Dyspnea on exertion Procedures XR Chest Pa Lateral 2 Vw Cherelle Corcoran MD Phone: tel: fax: [facility] [address] [place] [address] Referral ID Status Reason Start Date Expiration Date Visits Re quested Visits Authorized [id number] Closed 09/02/2021 10/02/2022 1 1 Reason for Visit * Reason Comments Follow-up Edema Hands and feet Encounter Details Date Type Department Care Team ([facility] st Contact Info) Description 09/02/2021 4:00 PM CDT Office Visit [facility] Primary Care [facility] [address] [place] [address] Cherelle Corcoran MD [address] [place] [id number] Type 2 diabetes mellitus with diabetic neuropathy, with long-term current use of insulin (CMS/HCC) ([facility]) (Primary Dx); Cold intolerance; Dyspnea on exertion; Edema due to malnutrition, due to unspecified malnutrition type (HCC) Social History Tobacco Use Types [...] on file Legal Sex Female 9:03 AM CRANBERRY 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 Gender Identity Female 02/08/2020 6:39 PM CDT Sexual Orientation Not on file documented as of this encounter Last Filed Vital Signs Vital Sign Reading Time Taken Comments Blood Pressure 148/62 09/02/2021 4:54 PM CDT Pulse 86 09/02/2021 4:16 PM CDT Temperature 36.2 ??C (97.1 ??F) 09/02/2021 4:16 PM CD T Respiratory Rate 18 09/02/2021 4:16 PM CDT Oxygen Saturation 98% 09/02/2021 4:16 PM CDT Inhaled Oxygen Concentration - - Weight 70.5 kg (155 lb 8 oz) 09/02/2021 4:16 PM CDT Height 157.5 cm (5' 2 ) 09/02/2021 4:16 PM CDT Body Mass Index 28.44 09/02/2021 4:16 PM CDT documented in this encounter Ordered Prescriptions Prescription Sig Dispense Quantity Refills Last Filled Start Date End Date dulaglutide (TRULICITY) 0.75 mg/0.5 mL pen injectorIndication s:Type 2 diabetes mellitus with diabetic neuropathy, with long-term current use of insulin ([facility]) Inject 0.5 mL (0.75 mg total) under the skin once a week 2 mL 09/02/2021 10/07/2021 documented in this encounter Progress Notes * Cherelle Corcoran MD - 09/02/2021 4:00 PM CDT Images from the original note were not included. Assessment/Plan: Assessment/Plan Diagnoses and all orders for this visit: Type 2 diabetes mellitus with diabetic neuropathy, with long-term current use of insulin (CMS/HCC) ([facility]) (Primary) Comments: BS uncontrolled Restart trulicity Continue 15 units lantus & 5 units TID with meals with at SNF, will be difficult to continue after d/c Orders: - dulaglutide (TRULICITY) 0.75 mg/0.5 mL pen injector; Inject 0.5 mL (0.75 mg total) under the skinonce a week Cold intolerance - TSH reflex to free T4; Future - Iron profile w/ IBC; Future Dyspnea on exertion Comments: CXR ordered Advised fu with cards Orders: - XR Chest Pa Lateral 2 Vw; Future Edema due to malnutrition, due to unspecified malnutrition type ([facility]) Comments: Last protein level decreased and intake recent decreased Appetite returning Continue compression stockings Hesitant to restart hctz given cr elevated F/u 09/19 or sooner as needed if symptoms not improving or worsen. Strict return/ED precautions discussed. Subjective: Barbara Chakraborty is a 70 y.o. female here for follow up diabetes mellitus HPI Chief Complaint Patient presents with ??? Follow-up ??? Edema Hands and feet previously on hydrochlorothiazide, but stopped 2/2 elevated creatinine, on recent check up slightlyfrom 1.65 to 1.8. follows with nephrology Notes shortness of breath with walking out to the car, no chest pain at that time, but has had an episode recently. No chest pain currently. Sees cardiology, but at last visit hadn't been having painor shortness of breath. No recent stress test. ECHO within normal limits 12/2019 Notes feeling cold and shaky all the time Diabetes mellitus: on 15 units long acting, 5 units short acting TIDAC with SSI, but blood sugar 200 up to 400x1. Previously on trulicity, but held recently Review of Systems Respiratory: Positive for shortness of breath (with walking out to car). Cardiovascular: Positive for chest pain and leg swelling. Objective: Vital signs were reviewed. Vitals: 09/02/21 1616 09/02/21 1654 BP: 148/62 148/62 BP Location: Left arm Left arm Patient Position: Sitting Sitting Pulse: 86 Resp: 18 Temp: 36.2 ??C (97.1 ??F) TempSrc: Temporal SpO2: 98% Weight: 70.5 kg (155 lb 8 oz) Height: 157.5 cm (5' [...] (Latest Contact Info) Description 07/13/2024 9:00 AM CRANBERRY SORTER Hospital Encounter [facility] [address] [place] [address] Jaya Greir MD [address] [place] [address] 07/13/2024 9:00 AM CRANBERRY SORTER - 07/13/2024 9:30 AM CRANBERRY SORTER Surgery [facility] [address] [place] [address] Jaya Grier MD [address] [place] [address] ESOPHAGOGASTRODUODENOSCOPY Scheduled Procedures Name Priority Associated Diagnoses Date/Ti me ESOPHAGOGASTRODUODENOSCOPY Anemia, unspecified type Gastritis without bleeding, unspecified chronicity, unspecified gastritis type 07/13/2024 9:00 AM CRANBERRY SORTER COLONOSCOPY Iron deficiency anemia due to chronic blood loss documented as of this encounter Results * (ABNORMAL) Iron profile w/ IBC (09/02/2021 5:44 PM CDT) Pathologist [facility] Iron 30(L) 35 - 145 mcg/dL [facility] Comment:Testing performed by : [address] [address] TIBC 188(L) 250 - 400 mcg/dL N[facility] Comment:Testing performed by : [address] [address] Transferrin saturation 16(L) 20 - 50 % N[facility] Comment:Testing performed by : [address] [address] Blood 09/02/2021 5:44 PM CDT 09/02/2021 6:20 PM CDT us Cherelle Corcoran MD LAB BLOOD ORDERAB LES Final Result Performing Organization Address City/[facility]/ZIP Co de Phone Number [address] [place] [place] [address] * TSH reflex to free T4 (09/02/2021 5:44 PM CDT) [facility] TSH 1.52 0.30 - 4.20 mcIUnit/mL N[facility] Comment:Testing performed by : [address], [address] Blood 09/02/2021 5:44 PM CDT 09/02/2021 6:20 PM CDT Cherelle Corcoran MD LAB BLOOD ORDERAB LES Final Result Performing Organization Address City/[facility]/ZIP Co de Phone Number [address] [place] [place] [address] * XR Chest Pa Lateral 2 Vw (09/02/2021 5:28 PM CDT) Anatomical Region Laterality Modality Body, Chest N/A Computed Radiogr aphy 09/02/2021 5:41 PM CDT Narrative 09/02/2021 5:42 PM CDT EXAM DESCRIPTION: ?? XR CHEST PA LATERAL 2 VIEWS REASON FOR STUDY: ? Sob on exertion started yesterday. ??Has a mild cough on and off. ?? TECHNIQUE: ??Frontal and Lateral radiographs of the chest were obtained. COMPARISON: ??08/07/2021 FINDINGS: Cardiac silhouette is within normal limits in size. ??Trachea is midline. ?? Lungs appear normally expanded. ??There is no consolidation, pneumothorax, or pleural effusion. IMPRESSION: ??No radiographic evidence of an acute cardiopulmonary process. THIS IS AN ELECTRONICALLY VERIFIED FINAL REPORT 09/02/2021 5:42 PM - Electronically signed by ??Santo Arriaga M.D. AT: AT D: ??09/02/2021 5:42 PM T: ??09/02/2021 5:42 PM Report ID: [id number] Reading Location: ??[id number] Procedure Note Santo Arriaga MD - 09/02/2021 EXAM DESCRIPTION: XR CHEST PA LATERAL 2 VIEWS REASON FOR STUDY: Sob on exertion started yesterday. Has a mild cough on and off. TECHNIQUE: Frontal and Lateral radiographs of the chest were obtained. COMPARISON: 08/07/2021 FINDINGS: Cardiac silhouette is within normal limits in size. Trachea is midline. Lungs appear normally expanded. There is no consolidation, pneumothorax,or pleural effusion. IMPRESSION: No radiographic evidence of an acute cardiopulmonary process. THIS IS AN ELECTRONICALLY VERIFIED FINAL REPORT 09/02/2021 5:42 PM - Electronically signed by Santo Arriaga M.D. AT: AT Report ID: [id number] Reading Location: [id number] Cherelle Corcoran MD IMG XR PROCEDURES Final Result documented in this encounter Visit Diagnoses Diagnosis Type 2 diabetes mellitus with diabetic neuropathy, with long-term current use of insulin (HCC)- Primary Cold intolerance Other general symptoms Dyspnea on exertion Other dyspnea and respiratory abnormality Edema due to malnutrition, due to unspecified malnutrition type (HCC) Dyspnea on exertion Other dyspnea and respiratory abnormality Anemia, unspecified type Gastritis without bleeding, unspecified chronicity, unspecified gastritis type documented in this encounter Historical Medications * This list may reflect changes made after this encounter. amLODIPine (NORVASC) 10 mg tablet Take 10 mg by mouth daily 09/25/2021 added in this encounter Additional Health Concerns Infection Onset Date Last Indicated Resolved Time COVID: Recovered Comment:Added based on recent COVID infection. 08/24/2021 08/26/2021 12/22/2021 3:05 AM C DT documented as of this encounter Care Teams Associate Professor Of Chemistry Relationship Specialty Start Date End Date Cherelle Corcoran MD PCP - General Family Medicine 08/30/19 Mark Queen MD Consulting Physician Infectious Diseases 01/10/20 documented as of this encounter
--- OUTSIDE RECORDS SUMMARY | 2024-07-04 04:17 | XMS_ITS | Encounter Summary ---
Author Organization [facility] Address [address] [place] [address] Care Team Providers Care Operations Expert Name Role Phone Cherelle Corcoran MD Primary Care Pro vider Mark Queen MD Unavailable [phone] Encounter Details Date Type Department Care Team (Late st Contact Info) Description 08/16/2021 Telephone [facility] Primary Care [address] [facility] [address] [place] [address] Cherelle Corcoran MD [facility]4 [facility] [address] [place] [address] Social History Tobacco Use Types [...] on file Legal Sex Female 9:03 AM TOOL LATHE OPERATOR Gender Identity Female 02/08/2020 6:39 PM CDT Sexual Orientation Not on file documented as of this encounter Miscellaneous Notes * Telephone Encounter - Cherelle Corcoran MD - 08/16/2021 11:09 AM CST Noted, thanks LATHE OPERATOR * Telephone Encounter - Yoly Elkins LPN - 08/16/2021 11:04 AM TOOL LATHE OPERATOR Spoke to patient's [facility], [facility]-20 [facility], will call office 3-4 days prior to discharge to schedule appointment for patient. LATHE OPERATOR * Telephone Encounter - Cherelle Corcoran MD - 08/16/2021 9:44 AM CST Please call today for TCM, preferably early next week. thanks LATHE OPERATOR documented in this encounter Plan of Treatment Upcoming Encounters Date Type Department Care Team (Latest Contact Info) Description 07/13/2024 9:00 AM TOOL LATHE OPERATOR Hospital Encounter [facility] GI [facility] [address] [place] [address] Jaya Grier MD [address] [place] [address] 07/13/2024 9:00 AM TOOL LATHE OPERATOR - 07/13/2024 9:30 AM TOOL LATHE OPERATOR Surgery [facility] Lab [address] [place] [address] Jaya Grier MD [address] [place] [address] ESOPHAGOGASTRODUODENOSCOPY Scheduled Procedures Name Priority Associated Diagnoses Date/Ti me ESOPHAGOGASTRODUODENOSCOPY Anemia, unspecified type Gastritis without bleeding, unspecified chronicity, unspecified gastritis type 07/13/2024 9:00 AM TOOL LATHE OPERATOR COLONOSCOPY Iron deficiency anemia due to chronic blood loss documented as of this encounter Visit Diagnoses Not on filedocumented in this encounter Additional Health Concerns Infection Onset Date Last Indicated Resolved Time COVID19 08/13/2021 08/13/2021 08/24/2021 3:05 AM TOOL LATHE OPERATOR documented as of this encounter Care Teams Operations Expert Relationship Specialty Start Date End Date Cherelle Corcoran MD PCP - General Family Medicine 08/30/19 Mark Queen MD Consulting Physician Infectious Diseases 01/10/20 documented as of this encounter
--- OUTSIDE RECORDS SUMMARY | 2024-07-04 04:17 | XMS_ITS | Encounter Summary ---
Author Organization [facility] Address [address] [facility] [address] [place] [address] Care Team Providers Care Race Starter Name Role Phone Cherelle Corcoran MD Primary Care Pro vider Mark Queen MD Unavailable [phone] Encounter Details Date Type Department Care Team (Late st Contact Info) Description 09/10/2021 Telephone [facility] Primary Care [address] [facility] [address] [place] [address] Cherelle Corcoran MD [facility]4 [facility] [address] [place] [address] Social History Tobacco Use Types [...] week 09/10/2021 How often do you attend [facility] or [facility]ahai services? 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 Gender Identity Female 02/08/2020 6:39 PM CDT Sexual Orientation Not on file documented as of this encounter Miscellaneous Notes * Telephone Encounter - Isa Sharmaley - 09/10/2021 2:44 PM CDT Michelle with [facility] called for verbal ok for patient to continue Home hlth services; recd ok- from ALIREZA Lee *provided rep info - ok documented in this encounter Plan of Treatment Upcoming Encounters Date Type Department Care Team (Latest Contact Info) Description 07/13/2024 9:00 AM SCHOOL ATHLETIC DIRECTOR Hospital Encounter [facility] [address] [place] [address] Jaya Grier MD [address] [place] [address] [address] [place] [address] 07/13/2024 9:00 AM SCHOOL ATHLETIC DIRECTOR - 07/13/2024 9:30 AM SCHOOL ATHLETIC DIRECTOR Surgery [facility] [address] [place] [address] Jaya Grier MD [address] [place] [address] [address] [place] [address] ESOPHAGOGASTRODUODENOSCOPY Scheduled Procedures Name Priority Associated Diagnoses Date/Ti hi ESOPHAGOGASTRODUODENOSCOPY Anemia, unspecified type Gastritis without bleeding, unspecified chronicity, unspecified gastritis type 07/13/2024 9:00 AM SCHOOL ATHLETIC DIRECTOR COLONOSCOPY Iron deficiency anemia due to chronic blood loss documented as of this encounter Visit Diagnoses Not on filedocumented in this encounter Additional Health Concerns Infection Onset Date Last Indicated Resolved Time COVID: Recovered Comment:Added based on recent COVID infection. 08/24/2021 08/26/2021 12/22/2021 3:05 AM C DT documented as of this encounter Care Teams Race Starter Relationship Specialty Start Date End Date Cherelle Corcoran MD PCP - General Family Medicine 08/30/19 Mark Queen MD Consulting Physician Infectious Diseases 01/10/20 documented as of this encounter
--- OUTSIDE RECORDS SUMMARY | 2024-07-04 04:17 | XMS_ITS | Encounter Summary ---
Author Organization [facility] Healthcare Address [address] [place] [address] Care Team Providers Care Director Power Name Role Phone Cherelle Corcoran MD Primary Care Pro vider Mark Queen MD Unavailable [phone] Reason for Referral * Diagnostic Imaging (Routine) - Closed Specialty Diagnoses / Procedures Referred By Maryse lama Referred To Contact Diagnoses Dyspnea on exertion Procedures XR Chest Pa Lateral 2 Vw Cherelle Corcoran MD Phone: tel: fax: [address] [address] Referral ID Status Reason Start Date Expiration Date Visits Re quested Visits Authorized [id number] Closed 09/02/2021 10/02/2022 1 1 Reason for Visit * Diagnostic Imaging (Routine) - Closed Specialty Diagnoses / Procedures Referred By Maryse lama Referred To Contact Diagnoses Dyspnea on exertion Procedures XR Chest Pa Lateral 2 Vw Cherelle Corcoran MD Phone: tel: fax: [address] [phone] Referral ID Status Reason Start Date Expiration Date Visits Re quested Visits Authorized [id number] Closed 09/02/2021 10/02/2022 1 1 Encounter Details Date Type Department Care Team (Latest Contact Info) Description 09/02/2021 5:17 PM CDT - 09/02/2021 11:59 PM CDT Hospital Encounter 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 Gender Identity Female 02/08/2020 6:39 PM CDT Sexual Orientation Not on file documented as of this encounter Medications at Time of Discharge glucose 4 gram chewable tabletIndications:U ncontrolled type [...] times a day 60 g 08/13/2021 3 conner.stocking,th igh,reg,med miscIndications:Per ipheral edema Wear as much as possible 2 each 1 05/28/2021 4 dulaglutide (TRULICITY) 0.75 mg/0.5 mL pen injectorIndications :Type 2 diabetes mellitus with diabetic neuropathy, with long-term current use of insulin (HCC) Inject 0.5 mL (0.75 mg total) under the skin once a week 2 mL 09/02/2021 2 famotidine (PEPCID) 40 mg tabletIndications:G astroesophageal reflux disease, unspecified whether esophagitis present Take 1 tablet (40 mg total) by mouth daily 90 tablet 3 07/02/2021 2 insulin glargine (LANTUS, SEMGLEE) 100 unit/mL vial for injectionIndication s:Diabetes Mellitus Inject 18 Units under the skin nightly 10 mL 08/14/2021 2 insulin lispro (HumaLOG, ADMELOG) 100 unit/mL [...] a day 100 each 3 11/13/2020 3 meclizine (ANTIVERT) 25 mg tablet 08/04/2021 2 miscellaneous medical supply (Blood Pressure Cuff) miscIndications:Hyp ertension associated with diabetes (HCC) Use to check blood pressure daily 1 each 1 05/28/2021 2 multivitamin with minerals tablet Take 1 tablet by mouth daily 3 neomycin-polymyxin- dexAMETHasone (MAXITROL) 3.5mg/mL-10,000 unit/mL-0.1 % ophthalmic suspension 05/24/2021 2 omeprazole (PriLOSEC) 20 mg capsuleIndications: Gastroesophageal reflux disease, unspecified whether esophagitis present Take 1 capsule (20 mg total) by mouth daily 90 capsule 06/13/2021 2 OneTouch Verio test strips stripIndications:Un controlled [...] (Latest Contact Info) Description 07/13/2024 9:00 AM COPIER REPAIR TECHNICIAN Hospital Encounter [facility] GI Lab [address] [place] [address] Jaya Grier MD [address] [place] [address] 07/13/2024 9:00 AM COPIER REPAIR TECHNICIAN - 07/13/2024 9:30 AM COPIER REPAIR TECHNICIAN Surgery [facility] GI Lab [address] [place] [address] Jaya Grier MD [address] [place] [address] ESOPHAGOGASTRODUODENOSCOPY Scheduled Procedures Name Priority Associated Diagnoses Date/Ti me ESOPHAGOGASTRODUODENOSCOPY Anemia, unspecified type Gastritis without bleeding, unspecified chronicity, unspecified gastritis type 07/13/2024 9:00 AM COPIER REPAIR TECHNICIAN COLONOSCOPY Iron deficiency anemia due to chronic blood loss documented as of this encounter Procedures Procedure Name Priority Date/Time Associated Diagnosis Comments XR CHEST PA LATERAL 2 VIEWS Schedule RA, Read RA (Appt Today, Awaiting Results) 09/02/2021 5:28 PM CDT Dyspnea on exertion documented in this encounter Results * XR [...] PM T: ??09/02/2021 5:42 PM Report ID: [id number] Reading Location: ??[id number] Procedure Note Santo Arriaga MD - 09/02/2021 [...] Santo Arriaga M.D. AT: AT Report ID: [id number] Reading Location: [id number] Cherelle Corcoran MD IMG XR PROCEDURES Final Result documented in this encounter Visit Diagnoses Diagnosis Dyspnea on exertion Other dyspnea and respiratory abnormality Anemia, unspecified type Gastritis without bleeding, unspecified chronicity, unspecified gastritis type documented in this encounter Additional Health Concerns Infection Onset Date Last Indicated Resolved Time COVID: Recovered Comment:Added based on recent COVID infection. 08/24/2021 08/26/2021 12/22/2021 3:05 AM C DT documented as of this encounter Care Teams Director Power Relationship Specialty Start Date End Date Cherelle Corcoran MD PCP - General Family Medicine 08/30/19 aMrk Queen MD Consulting Physician Infectious Diseases 01/10/20 documented as of this encounter
--- OUTSIDE RECORDS SUMMARY | 2024-07-04 04:17 | XMS_ITS | Encounter Summary ---
Author Organization [facility] Address [address] [place] [address] Care Team Providers Care Surfacing Machine Operator Name Role Phone Cherelle Corcoran MD Primary Care Pro vider Mark Queen MD Unavailable [phone] Encounter Details Date Type Department Care Team (Late st Contact Info) Description 09/05/2021 Telephone [facility] Primary Care [address] [facility] [address] [place] [address] Cherelle Corcoran MD [facility]4 [facility] [address] [place] [address] Social History Tobacco Use Types [...] on file 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 Daughter is wanting to know what to do? Please advise. documented in this encounter Plan of Treatment Upcoming Encounters Date Type Department Care Team (Latest Contact Info) Description 07/13/2024 9:00 AM COMPUTER ASSEMBLER Hospital Encounter [facility] GI Lab [address] [place] [address] Jaya Grier MD [facility] [place] [address] 07/13/2024 9:00 AM COMPUTER ASSEMBLER - 07/13/2024 9:30 AM COMPUTER ASSEMBLER Surgery [facility] GI Lab [address] [place] [address] Jaya Grier MD [facility] [place] [address] ESOPHAGOGASTRODUODENOSCOPY Scheduled Procedures Name Priority Associated Diagnoses Date/Ti ny ESOPHAGOGASTRODUODENOSCOPY Anemia, unspecified type Gastritis without bleeding, unspecified chronicity, unspecified gastritis type 07/13/2024 9:00 AM COMPUTER ASSEMBLER COLONOSCOPY Iron deficiency anemia due to chronic blood loss documented as of this encounter Visit Diagnoses Not on filedocumented in this encounter Additional Health Concerns Infection Onset Date Last Indicated Resolved Time COVID: Recovered Comment:Added based on recent COVID infection. 08/24/2021 08/26/2021 12/22/2021 3:05 AM C DT documented as of this encounter Care Teams Surfacing Machine Operator Relationship Specialty Start Date End Date Cherelle Corcoran MD PCP - General Family Medicine 08/30/19 Mark Queen MD Consulting Physician Infectious Diseases 01/10/20 documented as of this encounter
--- OUTSIDE RECORDS SUMMARY | 2024-07-04 04:17 | XMS_ITS | Encounter Summary ---
Author Organization [facility] Address [address] [place] [address] Phone Care Team Providers Care Actuarial Director Name Role Phone Cherelle Corcoran MD Primary Care Pro vider Mark Queen MD Unavailable [phone] Encounter Details Date Type Department Care Team (Late st Contact Info) Description 09/06/2021 Orders Only [facility] Endocrinology Metabolism and Lipid [address] [facility] Medicine 5th [place] [address] [place] [address] Provider, MD [facility] [place] [address] Social History Tobacco Use Types Packs/Day Years [...] do you attend up health system or restorationist services? Never 09/10/2021 Do you [...] 07/13/2024 9:00 AM ALIGNER TYPEWRITER Hospital Encounter [facility] Lab [address] [place] [address] Jaya Grier MD [address] [facility] [address] [place] [address] 07/13/2024 9:00 AM ALIGNER TYPEWRITER - 07/13/2024 9:30 AM ALIGNER TYPEWRITER Surgery [facility] [address] [place] [address] Jaya Grier MD [address] [facility] [address] [place] [address] ESOPHAGOGASTRODUODENOSCOPY Scheduled Procedures Name Priority Associated Diagnoses Date/Ti me ESOPHAGOGASTRODUODENOSCOPY Anemia, unspecified type Gastritis without bleeding, unspecified chronicity, unspecified gastritis type 07/13/2024 9:00 AM ALIGNER TYPEWRITER COLONOSCOPY Iron deficiency anemia due to chronic blood loss documented as of this encounter Procedures Procedure Name Priority Date/Time Associated Diagnosis Comments CBC WITH DIFFERENTIAL Routine 08/30/2021 COMPREHENSIVE METABOLIC PANEL Routine 08/30/2021 documented in this encounter Results * CBC with Differential (08/30/2021) Historical Provider LAB BLOOD ORDERABLES Blessing l Result Performing Organization Address City/[facility]/ZIP Co de Phone Number EXTERNAL LAB * Comprehensive metabolic panel (08/30/2021) Blood specimen (specimen) us Historical Provider LAB BLOOD ORDERABLES Blessing l Result Performing Organization Address City/[facility]/ZIP Co de Phone Number EXTERNAL LAB documented in this encounter Visit Diagnoses Not on filedocumented in this encounter Additional Health Concerns Infection Onset Date Last Indicated Resolved Time COVID: Recovered Comment:Added based on recent COVID infection. 08/24/2021 08/26/2021 12/22/2021 3:05 AM C DT documented as of this encounter Care Teams Actuarial Director Relationship Specialty Start Date End Date Cherelle Corcoran MD PCP - General Family Medicine 08/30/19 Mark Queen MD Consulting Physician Infectious Diseases 01/10/20 documented as of this encounter
--- OUTSIDE RECORDS SUMMARY | 2024-07-04 04:17 | XMS_ITS | Encounter Summary ---
Author Organization [facility] Healthcare Address [address] [place] [address] Care Team Providers Care Lime Spreader Name Role Phone Cherelle Corcoran MD Primary Care Pro vider Mark Queen MD Unavailable [phone] Reason for Visit * Reason Comments Edema Encounter Details Date Type Department Care Team (Latest Contact Info) Description 09/06/2021 3:37 PM CDT - 09/18/2021 6:29 PM CDT Hospital Encounter [address] [id number] Hattie Castro MD [address] [facility] [address] [place] [address] Yaniv Barton MD [address] [place] [address] Maddi Aaron MD [address] [place] [address] Sharron Thornton MD [address] [place] [address] Hypervolemia, unspecified hypervolemia type (Primary Dx); STEFANO (acute kidney injury) (CMS/HCC) (HCC); Anemia due to stage 4 chronic kidney disease (CMS/HCC) (HCC); Other hypervolemia; Late onset Alzheimer's dementia without behavioral disturbance (HCC); Schizoaffective disorder, bipolar type (CMS/HCC) (HCC); Iron deficiency anemia due to chronic blood loss; Acute renal failure superimposed on stage 4 chronic kidney disease, unspecified acute renal failure type (HCC) Discharge Disposition: Discharge to home, home [...] on file 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 Gender Identity Female 02/08/2020 6:39 PM CDT Sexual Orientation Not on file documented as of this encounter Last Filed Vital Signs Vital Sign Reading Time Taken Comments Blood Pressure 127/52 09/18/2021 8:45 AM CDT Pulse 61 09/18/2021 8:45 AM CDT Temperature 36.4 ??C (97.5 ??F) 09/18/2021 8:45 AM CD T Respiratory Rate 16 09/18/2021 8:45 AM CDT Oxygen Saturation 96% 09/18/2021 8:45 AM CDT Inhaled Oxygen Concentration - - Weight 70.7 kg (155 lb 12.8 oz) 09/18/2021 6:24 AM CDT Height 157.5 cm (5' 2 ) 09/07/2021 12:3 0 AM CDT Body Mass Index 28.5 09/07/2021 12:30 AM CDT documented in this encounter Discharge Diagnoses Diagnosis Acute kidney failure, unspecified (HCC) - ACUTE KIDNEY FAILURE, UNSPECIFIED Acute kidney failure, unspecified Pleural effusion, not elsewhere classified - PLEURAL EFFUSION, NOT ELSEWHERE CLASSIFIED Other fluid overload - OTHER FLUID OVERLOAD Anemia in chronic kidney disease (CODE) - ANEMIA IN CHRONIC KIDNEY DISEASE (MANIFESTATION) Schizoaffective disorder, bipolar type (CMS/HCC) (HCC) - SCHIZOAFFECTIVE DISORDER, BIPOLAR TYPE Schizoaffective disorder, unspecified condition Type 2 diabetes mellitus with diabetic chronic kidney disease (HCC) - TYPE 2 DIABETES MELLITUS WITH DIABETIC CHRONIC KIDNEY DISEASE Chronic kidney disease, stage 4 (severe) (HCC) - CHRONIC KIDNEY DISEASE, STAGE 4 (SEVERE) Type 2 diabetes mellitus with diabetic neuropathy, unspecified (HCC) - TYPE 2 DIABETES MELLITUS WITH DIABETIC NEUROPATHY, UNSPECIFIED Unspecified dementia without behavioral disturbance - UNSPECIFIED DEMENTIA WITHOUT BEHAVIORAL DISTURBANCE Hypertensive chronic kidney disease with stage 1 through stage 4 chronic kidney disease, or unspecified chronic kidney disease - HYPERTENSIVE CHRONIC KIDNEY DISEASE WITH STAGE 1 THROUGH STAGE 4 CHRONIC KIDNEY DISEASE, OR UNSPECIF Unspecified urinary incontinence - UNSPECIFIED URINARY INCONTINENCE Unspecified osteoarthritis, unspecified site - UNSPECIFIED OSTEOARTHRITIS, UNSPECIFIED SITE Hyperlipidemia, unspecified - HYPERLIPIDEMIA, UNSPECIFIED Personal history of COVID-19 - PERSONAL HISTORY OF COVID-19 operator prefinish (current) use of insulin (HCC) - MANAGER PATHOLOGY (CURRENT) USE OF INSULIN Other longterm (current) drug therapy - OTHER MANAGER PATHOLOGY (CURRENT) DRUG THERAPY Acquired absence of other right toe(s) (HCC) - ACQUIRED ABSENCE OF OTHER RIGHT TOE(S) documented in this encounter Discharge Summaries * Whit Milligan MD PhD - 09/18/2021 3:05 PM CDT Inpatient Discharge Summary BRIEF OVERVIEW Admitting Provider: Hattie Castro MD Discharge Provider: Sharron Tobin MD Primary Care Physician at Discharge: Cherelle Corcoran MD [phone] Admission Date: 09/06/2021 Discharge Date: 09/18/2021 Admission Location: [facility] Problems/Diagnoses: Principal Problem: Volume overload Active Problems: Schizoaffective disorder, bipolar type (CMS/HCC) (HCC) Diabetic neuropathy (CMS/HCC) (HCC) Type 2 diabetes mellitus with diabetic neuropathy, with long-term current use of insulin (CMS/HCC) (HCC) Dementia (HCC) Acute renal failure superimposed on stage 4 chronic kidney disease (CMS/HCC) (HCC) Anemia Resolved Problems: No resolved hospital problems. DETAILS OF HOSPITAL STAY Presenting Problem/History of Present Illness: Ms. Barbara Chakraborty is a 70 year old lady with a pmh of DM2, schizoaffective disorder, and dementia (baseline AOx2-3) who presented to the ED after seeing her primary care doctor with labs showing STEFANO and exam concerning for volume overload. Patient had recently been admitted until 08/14 for confusion and weakness, where she had been discharged to a SNF. She returned home with the daughter about a week ago, but daughter has noticed progressive fatigue, swelling, shortness of breath with exertion. They went to their PCP which showed a 6lb weight gain, Cr up to 2.1 (previous baseline around 1.4.) She was directed to the ED for c/f of HF and STEFANO on CKD. ?? On evaluation in the ED pt resting comfortably, AOx2. Vitals were stable with no oxygen requirement. Labs notable from BNP 522, Creat 2.1, and otherwise normal chemistry. A CXR revealed slight increased in previously small pleural effusions. Pt was given 20mg IV lasix and admitted for further management. Pt denied fever, chills, shortness of breath at rest, or any pain. She does feel she has had problems with swelling in her legs. She denies orthopnea but she also reports she does not like to lie flat at all and always sleeps at an incline. Story corroborated via phone with daughter Ursula. Hospital Course: * Volume overload Assessment & Plan Due to progressive CRF4. Presents with increasing [...] on day of admission but held 9?) &further worsened with diuretics. Patient appears grossly volume overloaded. Resumed diuretics [id number] IV Q12 & tolerated. Repeat TTE (echocardiogram) with normal LV/RV function.Urinalysis with2+prot, Ucx insignif. Est Cr Cl 21 c/w CRF4. Abdominal US was negative for hydronephrosis, cirrhosis. Suspect volume issues due to HTN/diabetic nephropathy. Reviewed telemetry personally, no events. Monitoring strict I/O. Goal net neg 1/2-1L/day. Weight down 6kg/admit. Renal consulted regarding volume management, possible longterm dialysis planning, expedite OP f/u. Serologies and urine studies ordered. ED neg, compliments neg, cryoglobulin negative, ANCA negative, HIV neg. Added metolazone 2.5mg/daily per renal 09/13- with improving swelling, Cr bump to 2.33 so held further doses. Transitioned to PO agents prior to DC with ongoing clinical improvement. Goal weight 155lbs, weight on DC was 155. Plan discharge Home with family at [place], board operator consulted to review salt restrictions with daughter. Anemia Assessment & Plan Progressive anemia with Hb 7.1 (dilutional?) from 9.7 over past month ago. 1+ blood in urine, neg cx. Pt denies gross hematuria, epistaxis, melena, hematochezia, hematemesis. Low FeSat, ferritin decreased to 179. Recent normal B12/Folate. Consistent with mixed AOCD/HECTOR. Concerning for occult bleeding, but Hb stable. More likely related to CRF. Started oral iron supplementation and suspect anemia due to progressive CRF. Deferred to renal timing of evaluation for epogen agents. GI made aware 09/09of anemia, will order OP EGD/colonoscopy at time of discharge and GI team will facilitate expeditedscheduling. Noted to have trending down to 7, 7.4, type and screen updated. Guiac stool neg 09/15. Co nsented for blood transfusion, goal Hb > 7, give lasix 20 IV if giving blood. Hemoglobin on discharge was 8.7. F/u with PCP and renal clinic. Acute renal failure superimposed on stage 4 chronic kidney disease ([facility] ([facility]) Assessment & Plan known CKD, likely 2/2 dm. Baseline Cr ~1.6, follows with nephrology outpatient. Cr 2.1 on admit w/ FEUrea 27% consistent with pre-renal injury such as cardiorenal syndrome, however normal LV/RV sys/diastolic function. Urinalysis with 1+ blood in setting of possible UTI. Cr improved initially after first dose of diuretics, worsened slightly with holding further diuresis & patient remained volume overloaded. Urine culture was insignificant.. Resumed IV diuresis 09/10, remained nonoliguric. Monitored electrolytes and renal function, unable to monitor strict I/O in setting of urinary incontinence, so followed serial weight loss. Avoided geller, if possible.Avoided nephrotoxic agents/renally dose medications. F/u Creatinine was 1.8-2.3. Level on DC was 2.33. 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 Renal clinic OP follow up in two weeks, with OP labs in 1 week. Dementia ([facility]) Assessment & Plan Reported baseline dementia, `AOX2-3. Corroborated by daughter who she lives with. Frequent hospitalizations this year. Suspect med compliance may be an issue. Currently at baseline neurological status. Managed on delirium precautions. PT rec 24 supervision with family, OT rec SNF. Spoke with Daughter Honey Gayle [phone]. CM following for dispo planning & HHC orders placed 09/13. Pt's daughter states she works, but has daughter who could be available during that time. Asking about additional resources for home care. CM notified & additional resources provided. Plan home at [place] with 24hr supervision, Home Health Care ordered. Type 2 diabetes mellitus with diabetic neuropathy, with long-term current use of insulin ([facility] ([facility]) Assessment & Plan Home regimen lantus 18, lispro 5 TID [...] for strict med oversight by family at [place] reviewed with daughter this admit. Schizoaffective disorder, bipolar type ([facility]) ([facility]) Assessment & Plan Hx of schizoaffective disorder, follows with psych outpatient. Earlier in year had been on daily haldol, weaned off due to increased fatigue. Currently no active psychotic manic symptoms, mood is stable and pleasant, cooperative with exam, testing and management. Continued home risperdal 2mg BID, remains alert. No extrapyramidal symptoms noted on exam. Diabetic neuropathy ([facility]) ([facility]) Assessment & Plan Ongoing symptoms. Previously on lyrica and Likely exacerbated by volume status. Monitor for response with diuresis, improved with less swelling. Active Issues Requiring Follow-up: EGD, colonoscopy for anemia Electrolytes on diuretics Test Results Pending at Discharge: Pending Labs Order Current Status Immunotyping, serum In process Protein Electrophoresis, With Reflex, Serum Preliminary result Operative Procedures Performed: Other Procedures: Pertinent Test Results: As in hospital course Discharge Details Physical Exam at Discharge: Discharge Condition: stable Pulse: 61 Resp: 16 BP: 127/52 Temp: 36.4 ??C (97.5 ??F) Weight: 70.7 kg (155 lb 12.8 oz) Pertinent Exam Findings at Discharge: - no swelling in upper or lower extremities, sitting in??chair??alert, conversational. Limited insight. Pleasant.?? Discharge Disposition: Home with 24 hour supervision Code Status at Discharge: Full Discharge Instructions: Other Instructions Ambulatory referral to Home Health Service Line: Home Health Primary disciplines requested: Assisted Physical Therapy Secondary disciplines requested: Occupational Therapy Home Health Services: Strengthening Exercises Therapy to Eval/ Treat Strengenthing/ Balance Physician to follow patient's care (the person listed here will be responsible for signing ongoing orders): PCP Requested Start of Care Date: Within 2 - 3 Days Special instructions (labs, wound care, etc.): bmp in one week, call results to renal clinic [phone] I attest that I or another qualified licensed provider saw the patient 90 days prior to or 30 days post admission and this face to face encounter meets the necessary Home Health requirements. The face to face encounter occurred on (date): 09/13/2021 The encounter with the patient was in whole, or in part, for the following medical condition, whichis the primary reason for home health care. (List medical condition): progressive CRF4, volume overload, mixed AOCD/iron deficiency anemia, Dementia I certify that, based on my findings, the following services are medically necessary skilled home health services: Strengthening Exercises Therapy to Eval/ Treat Strengenthing/ Balance Evaluate Other Comment: home safety evaluation, med and diet compliance and teaching Clinical findings that support the need for home care: Medical condition requiring skilled assessment/education Lack of knowledge regarding medications, requires education and assessment I certify that my clinical findings support patient's homebound status. Homebound criteria met because: Poor endurance Requires assistance of another to leave home safely Disorders of thought processes impacting decision making and safety Direct Scheduling Case Request: COLONOSCOPY Case Classification: Elective CPT(R): [place] COLONOSCOPY FLX DX W/COLLJ SPEC WHEN PFRMD Referring Provider: SHARRON TOBIN -[facility] Where should this order be performed?: [facility] Your home care agency is [facility] - call [phone] for any questions Discharge Medications: Current Medications TAKE these medications acetaminophen 325 mg tablet Take 2 tablets (650 mg total) by mouth every 4 (four) hours as needed for pain For: fever, pain Commonly known as: TYLENOL amLODIPine 10 mg tablet Take 10 mg by mouth daily Commonly known as: NORVASC atorvastatin 40 mg tablet Take 1 tablet (40 mg total) by mouth daily Commonly known as: LIPITOR BD Arlyn 2nd Gen Pen Needle 32 gauge x needle USE TO INJECT BASAGLAR EVERY NIGHT AT BEDTIME Generic drug: pen needle, diabetic Blood Pressure Cuff misc Use to check blood pressure daily Generic drug: [employer] medical supply blood pressure monitor kit Check BP as instructed capsaicin 0.025 % cream Apply topically 2 (two) times a day Commonly known as: ZOSTRIX carvediloL 12.5 mg tablet Take 1 tablet (12.5 mg total) by mouth 2 (two) times a day with meals Commonly known as: COREG conner.stocking,thigh,reg,med misc Wear as much as possible dulaglutide 0.75 mg/0.5 mL pen injector Inject 0.5 mL (0.75 mg total) under the skin once a week Commonly known as: TRULICITY famotidine 20 mg tablet Take 1 tablet (20 mg total) by mouth daily Commonly known as: PEPCID Start taking on: September 19, 2021 ferrous sulfate 325 mg (65 mg of elemental iron) tablet Take 1 tablet (325 mg total) by mouth daily with breakfast For: anemia from inadequate iron Start taking on: September 19, 2021 furosemide 40 mg tablet Take 1 tablet (40 mg total) by mouth 2 (two) times a day Commonly known as: LASIX glucose 4 gram chewable tablet Take 4 tablets (16 g total) by mouth as needed for low blood sugar (less than 70) and let Dr. Corcoran know! insulin glargine 100 unit/mL vial for injection Inject 25 Units under the skin nightly For: diabetes Commonly known as: LANTUS, SEMGLEE * insulin lispro 100 unit/mL pen for injection Inject 0-10 Units under the skin 3 (three) times a day with meals Commonly known as: HumaLOG, ADMELOG * insulin lispro 100 unit/mL pen for injection Inject 1-4 Units under the skin 3 (three) times a day with meals (1 unit for every 50 mg/dL blood glucose greater than 150 mg/dL up to max 4 units) Refer to After Visit Summary for Sliding Scale Insulin Instructions. Commonly known as: HumaLOG, ADMELOG * insulin lispro 100 unit/mL pen for injection Inject 8 [...] by mouth nightly Commonly known as: RisperDAL * This list has 3 medication(s) that are the same as other medications prescribed for you. Read the directions carefully, and ask your doctor or other care provider to review them with you. Outpatient Follow-Up: Future Appointments Date Time Provider Department Center 09/19/2021 2:45 PM Cherelle Corcoran MD FM SH 230 PC 10/01/2021 4:20 PM Anant Kauffman MD EML CAM 5C HEATH IM EML 10/16/2021 4:00 PM Markie Ryan MD [id number] Specialty 11/06/2021 3:15 PM [place] MD MB CARD E Specialty Contact Information for Follow-ups Cherelle Corcoran MD Specialty: Family Medicine Relationship: PCP - General [address] [place] [id number] Next Steps: Follow up Instructions: Your PCP office will contact you with in 1-2 days of your hospital discharge to schedule your hospital follow up appointment. Call your PCP if you are not contacted. Cosigned by Sharron Tobin MD at 09/18/2021 3:13 PM CDT documented in this encounter Discharge Instructions * Discharge Instr - Other Orders* Cee Gonzalez RN - 09/18/2021 2:25 PM CDT Your home care agency is [facility] - call [phone] for any questions documented in this encounter Medications at Time [...] 2nd Gen Pen Needle 32 gauge x needleIndications:T ype 2 diabetes [...] by mouth daily with breakfast 30 tablet 09/19/2021 2 furosemide (LASIX) 40 mg tablet Take 1 tablet (40 mg total) by mouth 2 (two) times a day 60 tablet 11 09/18/2021 2 insulin glargine (LANTUS, SEMGLEE) 100 unit/mL vial for injectionIndication s:Diabetes Mellitus Inject 25 Units under the skin nightly 7.5 mL 09/18/2021 2 insulin lispro (HumaLOG, ADMELOG) [...] day with meals 7.2 mL 09/18/2021 2 lancets miscIndications:Unc ontrolled type 2 diabetes mellitus with hyperglycemia (HCC) Check blood sugar up to 3 times a day 100 each 3 11/13/2020 3 miscellaneous medical supply (Blood Pressure Cuff) miscIndications:Hyp ertension associated with diabetes (HCC) Use to check blood pressure daily 1 each 1 05/28/2021 2 multivitamin with minerals tablet Take 1 tablet by mouth daily 3 OneTouch Verio test strips stripIndications:Un controlled type [...] with meals 15 mL 09/18/2021 2 insulin glargine (LANTUS, SEMGLEE) 100 unit/mL vial for injectionIndicatio ns:Diabetes Mellitus Inject 25 Units under the skin nightly 7.5 mL 09/18/2021 2 furosemide (LASIX) 40 mg tablet Take 1 tablet (40 mg total) by mouth 2 (two) times a day 60 tablet 11 09/18/2021 2 ferrous sulfate 325 mg (65 mg of elemental iron) tabletIndications: Iron Deficiency Anemia Take 1 tablet (325 mg total) by mouth daily with breakfast 30 tablet 09/19/2021 2 famotidine (PEPCID) 20 mg tablet Take 1 tablet (20 mg total) by mouth daily 30 tablet 09/19/2021 2 carvediloL (COREG) 12.5 mg tablet Take 1 tablet (12.5 mg total) by mouth 2 (two) times a day with meals 60 tablet 09/18/2021 2 acetaminophen (TYLENOL) 325 mg tabletIndications: Fever,Pain Take 2 tablets (650 mg total) by mouth every 4 (four) hours as needed for pain 60 tablet 09/18/2021 2 documented in this encounter Discharge Disposition Disposition Code Departure Means Destination Discharge to home, home health skilled care documented in this encounter Progress Notes * Cee Gonzalez RN - 09/18/2021 2:19 PM CDT 09/18/21 1418 Discharge Summary Chart reviewed For Medical Necessity Does patient have a planned readmission to hospital planned? No Discharge Disposition Home with Home Health (PT/OT/RN) Equipment/Provider Needs Home Provider Services Needs Identified Home Care Agency Information Home Care Agency Name [facility] Care Agency Contact Spoken to [facility] Order Faxed to [phone] Discharge Additional Assistance Does the patient need discharge transport arranged? No (Daughter will provide transportation) Post Discharge Care Provider Post Discharge Care Plan DC Summary has been faxed to next level of care provider (see Follow Up Providers) Patient is medically stable for discharge today per MD. Discharge to home with support of family [facility].Transportation provided by daughter. Medications per mobile pharmacy. Follow upappointment will be called to patient by PCP office. No further Case Management needs. * Kevin Cole MD - 09/18/2021 1:14 PM CDT NEPHROLOGY CONSULT SUBSEQUENT VISIT NOTE INTERVAL HISTORY: UOP 2.8 L yesterday on lasix 40 mg IVP once and PO lasix 40 mg once SOB and leg swelling resolved. Kidney function lateralized to 2.3 NAOEs, pt denies N/V, diarrhea, CP, SOB. REVIEW OF SYSTEMS: As per HPI. All other systems are negative. CURRENT MEDICATIONS: atorvastatin, 40 mg, oral, Daily carvediloL, 12.5 mg, oral, BID with meals (bkfst, dinner) famotidine, 20 mg, oral, Daily ferrous sulfate, 65 mg of elemental iron, oral, Daily with breakfast furosemide, 40 mg, oral, BID DIURETIC heparin, 5,000 Units, subcutaneous, Q8H SOL insulin glargine, 25 Units, subcutaneous, Nightly insulin lispro, 0-10 Units, subcutaneous, TID with meals insulin lispro, 0-5 Units, subcutaneous, Nightly insulin lispro, 8 Units, subcutaneous, TID with meals polyethylene glycol, 17 g, oral, Daily pregabalin, 150 mg, oral, Daily risperiDONE, 2 mg, oral, Nightly PHYSICAL EXAMINATION: VITALS: BP 127/52 (BP Location: Left arm, Patient Position: Sitting) Pulse 61 Temp 36.4 ??C (97.5 ??F) (Oral) Resp 16 Ht 157.5 cm (5' 2 ) Wt 70.7 kg (155 lb 12.8 oz) SpO2 96% BMI 28.50 kg/m?? Temp: [36.4 ??C (97.5 ??F)-36.6 ??C (97.9 ??F)] 36.4 ??C (97.5 ??F) Pulse: [57-64] 61 BP: (123-140)/(52-59) 127/52 Resp: [16] 16 SpO2: [95 %-98 %] 96 % Temp Min: 36.4 ??C (97.5 ??F) Max: 36.6 ??C (97.9 ??F) Pulse Min: 57 Max: 64 BP Min: 123/52 Max: 140/59 Resp Min: 16 Max: 16 SpO2 Min: 95 % Max: 98 % General Awake, alert, lying in bed HEENT: moist oral mucosa. CV: heart sounds RRR, no murmurs, rub or gallop PULM: clear to auscultation, no rales. Abdomen: Soft, non-tender, BS present. MSK: trace BL pedal edema, symmetric LE SKIN: no rashes Neuro: AOx3, no focal motor deficits Psych: appropriate affect Dialysis Access Exam: NA Date 09/17/21699 - 09/18/21 0659 09/18/21 07 - 09/19/21 0659 Shift [id number] 0530-4803 24 Hour Total 1402-8095 3351-4513 24 Hour Total INTAKE P.O. 240 240 Shift Total(mL/kg) 240(3.4) 240(3.4) OUTPUT Urine(mL/kg/hr) 1400(1.6) 1350(1.6) 2750(1.6) 300 300 Shift Total(mL/kg) 1400(19.6) 1350(19.1) 2750(38.9) 300(4.2) 300(4.2) NET -1400 -1110 -2510 -300 -300 Weight (kg) 71.5 70.7 70.7 70.7 70.7 70.7 LABORATORY DATA: Recent Labs Lab Units 09/17/21200709/16/21200909/15/21 2210 WBC K/cumm 10.3* 10.1* 10.3* HEMOGLOBIN g/dL 8.7* 8.0* 7.4* PLATELETS K/cumm 404* 374 320 Recent Labs Lab Units 09/17/21200709/16/21200909/15/21 22109/13/21213409/12/21 2059 SODIUM mmol/L 139 142 142 < > 141 POTASSIUM PLASMA mmol/L 4.5 5.0* 4.8 < > -- CHLORIDE mmol/L 99 102 102 < > 104 CO2 mmol/L 29 30 29 < > 25 BUN SERUM mg/dL 71* 71* 65* < > 47* CREATININE mg/dL 2.33* 2.34* 2.34* < > 2.09* ALBUMIN g/dL -- -- -- -- 3.2* CALCIUM mg/dL 10.1 9.8 9.4 < > 9.1 MAGNESIUM mg/dL 2.3 2.3 2.1 < > 1.9 < > = values in this interval not displayed. Lab Results Component Value Date PTH 36.0 02/07/2021 CALCIUM 10.1 09/17/2021 PHOS 3.3 01/11/2020 Lab Results Component Value Date IRON 30 (L) 09/02/2021 TIBC 188 (L) 09/02/2021 TRANSFERSAT 16 (L) 09/02/2021 FERRITIN 179 (H) 09/07/2021 ASSESSMENT AND PLAN # Volume overload TTE showed EF 69%, otherwise stable. US ruled out cirrhosis and hydronephrosis, IVC was normal. Past h/o nephrotic ranged proteinuria > 5 G (01/2021) which was improved to 1.5 G (06/2021) on lisinopril 20 mg daily which was stopped last admission because of STEFANO. BL weight around 140; admission weight 161; latest weight - 155 lb today UOP 2.8L yesterday with improving edema on lasix 40 mg IVP x1 and PO lasix 40 mg x 1 Ok to discharge the pt on PO lasix 40 mg BID low sodium intake < 2 G; Drink to thirst; Daily weight Please make sure pt will have repeat BMP, Mg, Phos in a week Will set up outpatient nephro appointment with Dr. Ryan in 2 weeks ?? # Progressive CKD or STEFANO on CKD - Baseline Cr 1.4 - 1.6, recent OSH admission with peak Cr 3.96 trending down to 1.65 on Feb Cr in Feb . Cr admission 2.1. now fluctuating around 2.3 - UA - 2+ protein, 1+ blood, 11-20 RBC, > 50 WBC. FeUrea 27%; normal complement; ED and GBM Ab;FLCR 2.02 (elevated); pending immunotyping - Etiology - STEFANO in previous admission likely 2/2 recent increase in lisinopril and chronic usage of NSAID prior, which was seems to be improved after stopping the meds. Slight Cr rise in this admission might be from progressive underlying CKD (from uncontrolled DM and previous STEFANO episodes) or might be from STEFANO (unclear etiology; ? Tubular injury from recent COVID infection given microscopic hematuria or congestion nephropathy or other). There is no evidence of obstruction in US. ?? - No acute indication for HD; UOP improving on diuresis - F/u immunotyping - Diuretic management as above for volume overload - Continue to trend renal function, strict I&Os, daily weights and closely monitor UOP. - Avoid nephrotoxin and hypotensive episodes. 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 UPC on this admission 0.77 and UAC 0.5 HbA1C 8.4; HIV, HCV and RPR NR; FLCR 2.02 (elevated); pending immunotyping Hold off ACEI given worsening kidney function and improving UPC this admission # Anemia in CKD Hb below target TSAT 16% and Ferritin 179 Currently on oral iron supplement daily # HTN BP controlled Currently on coreg 12.5 mg BID and lasix 40 mg BID ?? Kevin Cole MD Nephrology Fellow Consult 3 Service Contact (phone): [phone] After hours and weekends: please page [phone] Cosigned by Maritza Puri MD at 09/18/2021 3:08 PM CDT Associated attestation - Maritza Puri MD - 09/18/2021 3:08 PM CDT I have seen and examined the patient on 09/18/21. I agree with the findings and plan of care as documented in the resident's/fellow's note.. Hypervolemia: TTE with preserved ejection fraction. Serum albumin normal. Much better today clinically. Continue furosemide 40 mg p.o. b.i.d. at discharge. CKD stage III: Baseline Cr prior to admission at best was 1.6 on 08/09/2021. Cr has plateaued at 2.3mg/dL recently. Renal ultrasound was within limits this admission. Patient to follow-up with her primary clinical rehabilitation coordinator Dr Ryan. Sub nephrotic proteinuria: urine protein/Cr 0.7 g/g on 09/14. UA with 1+ blood and 11-20 RBCs (mostly negative in the past). Follow-up as outpatient with repeat UA.. Patient stable to be discharged from renal standpoint. Maritza Puri MD * [facility] Whit Link MD PhD - 09/18/2021 11:43 AM CDT Daily Progress Note Division of Hospital Medicine Name: Barbara Chakraborty Today: September 18, 2021 : 1950 Age: 70 y.o. female Admit: 09/06/2021 Bed: [id number] Subjective Chief complaint: Volume overload/anasarca 2/2 progressive CRF. Acute on CRF4. Proteinuria. 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 Patient replies that she is feeling good and is ready to go home today. Objective Medications: Scheduled: atorvastatin, 40 mg, oral, Daily carvediloL, 12.5 mg, oral, BID with meals (bkfst, dinner) famotidine, 20 mg, oral, Daily ferrous sulfate, 65 mg of elemental iron, oral, Daily with breakfast furosemide, 40 mg, oral, BID DIURETIC heparin, 5,000 Units, subcutaneous, Q8H SOL insulin glargine, 25 Units, subcutaneous, Nightly insulin lispro, 0-10 Units, subcutaneous, TID with meals insulin lispro, 0-5 Units, subcutaneous, Nightly insulin lispro, 8 Units, subcutaneous, TID with meals polyethylene glycol, 17 g, oral, Daily pregabalin, 150 mg, oral, Daily risperiDONE, 2 mg, oral, Nightly Infusions: PRN: ??? acetaminophen ??? capsaicin ??? dextrose OR dextrose ??? glucagon Vitals: 24hr Min/Max: Temp Min: 36.4 ??C (97.5 ??F) Max: 36.6 ??C (97.9 ??F) Pulse Min: 57 Max: 64 BP Min: 123/52 Max: 140/59 Resp Min: 16 Max: 16 SpO2 Min: 95 % Max: 98 % Most Recent: Vitals: 09/18/21 0845 BP: 127/52 Pulse: 61 Resp: 16 Temp: 36.4 ??C (97.5 ??F) SpO2: 96% Intake/Output Summary (Last 24 hours) at 09/18/2021 1135 Last data filed at 09/18/2021 1100 Gross per 24 hour Intake 240 ml Output 2450 ml Net -2210 ml Physical Exam Vitals and nursing note reviewed. Constitutional: General: She is not in acute distress. Cognitive dysfunction, pleasantly agreeable. No behavioral issues. Appearance: She is obese. She is not ill-appearing or diaphoretic. Comments: no swelling in upper or lower extremities, sitting in chair alert, conversational. Limited insight. Pleasant. HENT: Head: Normocephalic and atraumatic. Right Ear: External ear normal. Left Ear: External ear normal. Nose: Nose normal. No congestion or rhinorrhea. Mouth/Throat: Mouth: Mucous membranes are moist. Pharynx: Oropharynx is clear. No oropharyngeal exudate or posterior oropharyngeal erythema. Eyes: General: No scleral icterus. Extraocular Movements: Extraocular movements intact. Conjunctiva/sclera: Conjunctivae normal. Pupils: Pupils are equal, round, and reactive to light. Cardiovascular: Rate and Rhythm: Normal rate and regular rhythm. Pulses: Normal pulses. Heart sounds: No murmur heard. No friction rub. No gallop. Pulmonary: Effort: Pulmonary effort is normal. No respiratory distress. Breath sounds: No stridor. No wheezing, rhonchi or rales. Comments: Decreased BS at bases bilaterally, shallow inpirations. No wheezing or rales appreciated. Chest: Chest wall: No tenderness. Abdominal: General: Bowel sounds are normal. There is no distension. Palpations: There is no mass. Tenderness: There is no abdominal tenderness. Hernia: No hernia is present. Comments: Obese, protuberant. No fluid wave appreciated. Musculoskeletal: Cervical back: Normal range of motion and neck supple. Comments: RESOLVED pitting edema of upper and lower extremities Prior R 4th toe amputation, site well healed. Skin: General: Skin is warm and dry. Capillary Refill: Capillary refill takes less than 2 seconds. Coloration: Skin is not jaundiced. Findings: No rash. Neurological: General: No focal deficit present. Mental Status: She is alert. Cranial Nerves: No cranial nerve deficit. Sensory: Not tested, but previously found sensory deficit present. Comments: Alert, oriented x3, but significant short term memory deficits, stocking glove distribution of neuropathy on hands, feet bilaterally and same conversation each day about neuropathy due to diabetes Oh I didn't know that . Psychiatric: Mood and Affect: Mood normal. Behavior: Behavior normal. Thought Content: Poor retention of new information, Repetitive comments. Lab/Diagnostic Review: Recent Results (from the past 36 hour(s)) POCT glucose Collection Time: 09/17/21 7:43 AM Result Value Ref Range Glucose, POC 163 70 - 199 mg/dL POCT glucose Collection Time: 09/17/21 12:18 PM Result Value Ref Range Glucose, POC 198 70 - 199 mg/dL POCT glucose Collection Time: 09/17/21 5:26 PM Result Value Ref Range Glucose, POC 203 (H) 70 - 199 mg/dL CBC with auto differential Collection Time: 09/17/21 8:08 PM Result Value Ref Range WBC 10.3 (H) 3.8 - 9.9 K/cumm Hgb 8.7 (L) 11.9 - 15.5 g/dL Hct 28.4 (L) 35.6 - 45.5 % Plt 404 (H) 150 - 400 K/cumm MPV 11.3 9.1 - 12.3 fL RBC 3.02 (L) 3.90 - 5.20 M/cumm MCV 94.0 81.3 - 96.4 fL MCH 28.8 27.1 - 33.3 pg MCHC 30.6 (L) 32.3 - 35.7 g/dL RDW CV 16.3 (H) 11.1 - 14.9 % RDW SD 55.8 (H) 35.7 - 48.1 fL NRBC abs 0.00 0.00 - 0.01 K/cumm Basic metabolic panel Collection Time: 09/17/21 8:08 PM Result Value Ref Range Sodium 139 135 - 145 mmol/L Potassium, pl 4.5 3.3 - 4.9 mmol/L Chloride 99 97 - 110 mmol/L CO2 29 22 - 32 mmol/L Anion gap 11 2 - 15 mmol/L BUN 71 (H) 8 - 25 mg/dL Creatinine 2.33 (H) 0.60 - 1.10 mg/dL Glucose 210 (H) 70 - 199 mg/dL Calcium 10.1 8.5 - 10.3 mg/dL Magnesium Collection Time: 09/17/21 8:08 PM Result Value Ref Range Magnesium 2.3 1.4 - 2.5 mg/dL Differential, auto Collection Time: 09/17/21 8:08 PM Result Value Ref Range Neutrophil abs 5.8 1.7 - 6.5 K/cumm Imm gran abs 0.1 0.0 - 0.1 K/cumm Lymphocyte abs 3.4 (H) 0.8 - 3.3 K/cumm Monocyte abs 0.7 0.2 - 0.8 K/cumm Eosinophil abs 0.3 0.0 - 0.5 K/cumm Basophil abs 0.1 0.0 - 0.1 K/cumm Neutrophil pct 56.3 % Imm gran pct 0.6 % Lymphocyte pct 32.6 % Monocyte pct 7.0 % Eosinophil pct 2.9 % Basophil pct 0.6 % eGFR Collection Time: 09/17/21 8:08 PM Result Value Ref Range eGFR 22 (L) 90 - 130 mL/min/1.73 m2 POCT glucose Collection Time: 09/17/21 9:37 PM Result Value Ref Range Glucose, POC 225 (H) 70 - 199 mg/dL POCT glucose Collection Time: 09/18/21 7:33 AM Result Value Ref Range Glucose, POC 238 (H) 70 - 199 mg/dL I have reviewed the laboratory results. Imaging Results: US Abdomen Complete Narrative: EXAMINATION: COMPLETE ABDOMINAL SONOGRAM HISTORY: 70-year-old woman with diabetes mellitus and acute on chronic kidney disease. She is hospitalized with anasarca. Evaluate for cirrhosis. COMPARISON: None FINDINGS: Liver: The liver is normal in size. The echotexture is normal. The echogenicity is normal. There is no surface nodularity. No focal solid lesions are visualized. Gallbladder: The gallbladder is normal in size. There are no stones or sludge within the gallbladder. There is no gallbladder wall thickening. Bile Duct: There is no intrahepatic bile duct dilatation. The diameter of the common duct is 5 mm in the mid segment and 2 mm in the distal segment. Kidneys: There is no hydronephrosis in the visualized portions of the kidneys. Pancreas: Pancreas is not well visualized due to overlying bowel gas. Spleen: The spleen is normal in size. Aorta: The proximal aorta is normal. Inferior vena cava: The proximal IVC is normal. Other Findings: There is a right pleural effusion. Impression: 1. No sonographic findings of cirrhosis. 2. Right pleural effusion. Dr. Bronson (associate professor of radiology) personally participated in sonographic imaging of this patient. ANAY Bernardo also participated in sonographic imaging of this patient. Dictated by: Cristo Bronson MD The radiology attending physician has personally reviewed this study, and had reviewed and/or edited this written report and agrees with it. Electronically signed by: Mayuri Gibson M.D. Assessment/Plan Anemia Assessment & Plan Progressive anemia with Hb 7.1 (dilutional?) from 9.7 over past month ago. 1+ blood in urine, neg cx. Pt denies gross hematuria, epistaxis, melena, hematochezia, hematemesis. Low FeSat, ferritin decreased to 179. Recent normal B12/Folate. Consistent with mixed AOCD/HECTOR. Concerning for occult bleeding, but Hb stable. More likely related to CRF. -Started oral iron supplementation -suspect anemia in s/o progressive CRF. Defer to renal timing of epo agents. -GI made aware 09/09, will order OP EGD/colonoscopy at time of discharge and GI team will facilitateexpedited scheduling -Hb trending down to 7, 7.4, type and screen updated. Guiac stool neg 09/15. -Consented for blood transfusion, goal Hb > 7, give lasix 20 IV if giving blood. Acute renal failure superimposed on stage 4 chronic kidney disease (CMS/[facility]) ([facility]) Assessment & Plan known CKD, likely 2/2 dm. Baseline Cr ~1.6, follows with nephrology outpatient. Cr 2.1 on admit w/ FEUrea 27% consistent with pre-renal injury such as cardiorenal syndrome, however normal LV/RV sys/diastolic function. Urinalysis with 1+ blood in setting of possible UTI. Cr improved initially after first dose of diuretics, worsened slightly with holding further diuresis & patient remained volume overloaded. -Ucx insignificant. -resumed IV diuresis 09/10, nonoliguric. -Daily electrolytes and renal function, unable to monitor strict I/O in s/o urinary incontinence, following serial weights. Avoid geller, if possible. - hold nephrotoxic agents/renally dose medications -F/u Cr 1.8-2.3 -High Density Press Operator to meet with family regarding diet restriction education. Attempted to reach daughter with update 09/16, line busy. Dementia ([facility]) Assessment & Plan Reported baseline dementia, `AOX2-3. Corroborated by daughter who she lives with. Frequent hospitalizations this year. Suspect med compliance may be an issue. Currently at baseline neurological status. Managed on delirium precautions. PT rec 24 supervision with family, OT rec SNF. Spoke with Daughter Honey Gayle [phone]. CM following for dispo planning & [facility] orders placed 09/13. Pt's daughter states she works, but has daughter who could be available during that time. Asking about additional resources for home care. CM notified & additional resources provided. Plan home at [place] with 24hr supervision, [facility]. Type 2 diabetes mellitus with diabetic neuropathy, with long-term current use of insulin ([facility]) ([facility]) Assessment & Plan Home regimen lantus 18, lispro 5 TID [...] for strict med oversight by family at [place] reviewed with daughter this admit. Diabetic neuropathy ([facility]) ([facility]) Assessment & Plan Ongoing symptoms. Previously on lyrica and Likely exacerbated by volume status. Monitor for response with diuresis, improved with less swelling. Schizoaffective disorder, bipolar type (CMS/HCC) ([facility]) Assessment & Plan Hx of schizoaffective disorder, follows with psych outpatient. Earlier in year had been on daily haldol, weaned off due to increased fatigue. Currently no active psychotic manic symptoms, mood is stable and pleasant, cooperative with exam, testing and management. Continued home risperdal 2mg BID, remains alert. No extrapyramidal symptoms noted on exam. * Volume overload Assessment & Plan Due to progressive CRF4. Presents with increasing [...] weight 155lbs -Home with family at [place], board operator consulted to review salt restrictions. -outpatient BMP, phos, mag in 1 week and f/u Dr. Ryan in 2 weeks Cosigned by Sharron Tobin MD at 09/18/2021 11:44 AM CDT Associated attestation - Sharron Thornton MD - 09/18/2021 11:44 AM CDT ATTENDING DOCUMENTATION I have seen and examined the patient on 09/18/2021. I agree with the findings and plan of care as documented in the resident's/fellow's note. Sharron Tobin MD * Kevin Cole MD - 09/17/2021 6:16 PM CDT NEPHROLOGY CONSULT SUBSEQUENT VISIT NOTE INTERVAL HISTORY: UOP 2.8 L yesterday on lasix 40 mg IVP BID and metolazone 2.5 mg OD SOB and leg swelling improving. Kidney function lateralized to 2.34 NAOEs, pt denies N/V, diarrhea, CP, SOB. REVIEW OF SYSTEMS: As per HPI. All other systems are negative. CURRENT MEDICATIONS: atorvastatin, 40 mg, oral, Daily carvediloL, 12.5 mg, oral, BID with meals (bkfst, dinner) famotidine, 20 mg, oral, Daily ferrous sulfate, 65 mg of elemental iron, oral, Daily with breakfast furosemide, 40 mg, oral, BID DIURETIC heparin, 5,000 Units, subcutaneous, Q8H SOL insulin glargine, 25 Units, subcutaneous, Nightly insulin lispro, 0-10 Units, subcutaneous, TID with meals insulin lispro, 0-5 Units, subcutaneous, Nightly insulin lispro, 8 Units, subcutaneous, TID with meals polyethylene glycol, 17 g, oral, Daily pregabalin, 150 mg, oral, Daily risperiDONE, 2 mg, oral, Nightly PHYSICAL EXAMINATION: VITALS: BP 128/57 (BP Location: Left arm, Patient Position: Sitting) Pulse 64 Temp 36.6 ??C (97.9 ??F) (Oral) Resp 16 Ht 157.5 cm (5' 2 ) Wt 71.5 kg (157 lb 9.6 oz) SpO2 98% BMI 28.83 kg/m?? Temp: [36.4 ??C (97.5 ??F)-36.6 ??C (97.9 ??F)] 36.6 ??C (97.9 ??F) Pulse: [64-86] 64 BP: (104-132)/(45-68) 128/57 Resp: [16-17] 16 SpO2: [98 %] 98 % Temp Min: 36.4 ??C (97.5 ??F) Max: 36.6 ??C (97.9 ??F) Pulse Min: 64 Max: 86 BP Min: 104/45 Max: 132/61 Resp Min: 16 Max: 17 SpO2 Min: 98 % Max: 98 % General Awake, alert, lying in bed HEENT: moist oral mucosa. CV: heart sounds RRR, no murmurs, rub or gallop PULM: clear to auscultation, no rales. Abdomen: Soft, non-tender, BS present. MSK: trace BL pedal edema, symmetric LE SKIN: no rashes Neuro: AOx3, no focal motor deficits Psych: appropriate affect Dialysis Access Exam: NA Date 09/16/21 07 - 09/17/21 0659 09/17/21 07 - 09/18/21 0659 Shift [id number] [id number] 24 Hour Total [id number] 8944-5341 24 Hour Total INTAKE P.O. 290 600 890 Shift Total(mL/kg) 290(4.1) 600(8.4) 890(12.4) OUTPUT Urine(mL/kg/hr) 600(0.7) 2230(2.6) 2830(1.6) 1400 1400 Shift Total(mL/kg) 600(8.4) 2230(31.2) 2830(39.6) 1400(19.6) 1400(19.6) NET -310 -1630 -1940 -1400 -1400 Weight (kg) 71.5 71.5 71.5 71.5 71.5 71.5 LABORATORY DATA: Recent Labs Lab Units 09/16/21200909/15/21 2210 09/14/21 2331 WBC K/cumm 10.1* 10.3* 9.5 HEMOGLOBIN g/dL 8.0* 7.4* 7.0* PLATELETS K/cumm 374 320 316 Recent Labs Lab Units 09/16/21200909/15/21 2210 09/14/21 2331 09/13/21 2135 09/12/21 2059 SODIUM mmol/L 142 142 145 < > 141 POTASSIUM PLASMA mmol/L 5.0* 4.8 4.5 -- -- CHLORIDE mmol/L 102 102 104 < > 104 CO2 mmol/L 30 29 28 < > 25 BUN SERUM mg/dL 71* 65* 59* < > 47* CREATININE mg/dL 2.34* 2.34* 2.33* < > 2.09* ALBUMIN g/dL -- -- -- -- 3.2* CALCIUM mg/dL 9.8 9.4 9.4 < > 9.1 MAGNESIUM mg/dL 2.3 2.1 2.1 < > 1.9 < > = values in this interval not displayed. Lab Results Component Value Date PTH 36.0 02/07/2021 CALCIUM 9.8 09/16/2021 PHOS 3.3 01/11/2020 Lab Results Component Value Date IRON 30 (L) 09/02/2021 TIBC 188 (L) 09/02/2021 TRANSFERSAT 16 (L) 09/02/2021 FERRITIN 179 (H) 09/07/2021 ASSESSMENT AND PLAN # Volume overload TTE showed EF 69%, otherwise stable. US ruled out cirrhosis and hydronephrosis, IVC was normal. Past h/o nephrotic ranged proteinuria > 5 G (01/2021) which was improved to 1.5 G (06/2021) on lisinopril 20 mg daily which was stopped last admission because of STEFANO. BL weight around 140; admission weight 161; latest weight - 157 lb (09/15) UOP 2.8L yesterday with improving edema on lasix 40 BD and metolazone 2.5 mg daily HCO and BUN trending up at the same time concerning for contraction alkalosis Recommend to switch to PO lasix 40 mg BID; continue holding metolazone. Daily weight, low sodium intake < 2 G; Drink to thirst ?? # STEFANO on CKD or progressive CKD - Baseline Cr 1.4 - 1.6, recent OSH admission with peak Cr 3.96 trending down to 1.65 on Feb Cr in Fe. Cr admission 2.1. now fluctuating around 2.3 - UA - 2+ protein, 1+ blood, 11-20 RBC, > 50 WBC. FeUrea 27%; normal complement; ED and GBM Ab;FLCR 2.02 (elevated); pending immunotyping - Etiology - STEFANO in previous admission likely 2/2 recent increase in lisinopril and chronic usage of NSAID prior, which was seems to be improved after stopping the meds. Slight Cr rise in this admission might be from progressive underlying CKD (from uncontrolled DM and previous STEFANO episodes) or might be from STEFANO (unclear etiology; ? Tubular injury from recent COVID infection given microscopic hematuria or congestion nephropathy or other). There is no evidence of obstruction in US. ?? - No acute indication for HD; UOP improving on diuresis - F/u immunotyping - Diuretic management as above for volume overload - Continue to trend renal function, strict I&Os, daily weights and closely monitor UOP. - Avoid nephrotoxin and hypotensive episodes. 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 UPC on this admission 0.77 and UAC 0.5 HbA1C 8.4; HIV, HCV and RPR NR; FLCR 2.02 (elevated); pending immunotyping Hold off ACEI given worsening kidney function and improving UPC this admission # Anemia in CKD Hb below target TSAT 16% and Ferritin 179 Currently on oral iron supplement daily # HTN BP controlled Currently on coreg 12.5 mg BID and lasix 40 mg BID ?? Kevin Cole MD Nephrology Fellow Consult 3 Service Contact (phone): [phone] After hours and weekends: please page [phone] Cosigned by Maritza Puri MD at 09/17/2021 9:04 PM CDT Associated attestation - Maritza Puri MD - 09/17/2021 9:04 PM CDT I have seen and examined the patient on 09/17/21. I agree with the findings and plan of care as documented in the resident's/fellow's note.. Cr has plateaued at 2.3 mg/dL with improving urine output.Agree with transition to PO furosemide. Maritza Puri MD * Min, Sharron Jimenes MD - 09/17/2021 10:14 AM CDT Daily Progress Note Division of Hospital Medicine Name: Barbara Chakraborty Today: September 17, 2021 : 1950 Age: 70 y.o. female Admit: 09/06/2021 Bed: [id number] Subjective No events, no new complaints. Very pleasant. Objective Medications: Scheduled: atorvastatin, 40 mg, oral, Daily carvediloL, 12.5 mg, oral, BID with meals (bkfst, dinner) famotidine, 20 mg, oral, Daily ferrous sulfate, 65 mg of elemental iron, oral, Daily with breakfast furosemide, 40 mg, intravenous, Q12H SOL heparin, 5,000 Units, subcutaneous, Q8H SOL insulin glargine, 25 Units, subcutaneous, Nightly insulin lispro, 0-10 Units, subcutaneous, TID with meals insulin lispro, 0-5 Units, subcutaneous, Nightly insulin lispro, 8 Units, subcutaneous, TID with meals polyethylene glycol, 17 g, oral, Daily pregabalin, 150 mg, oral, Daily risperiDONE, 2 mg, oral, Nightly Infusions: PRN: ??? acetaminophen ??? capsaicin ??? dextrose OR dextrose ??? glucagon Vitals: 24hr Min/Max: Temp Min: 36.4 ??C (97.5 ??F) Max: 36.6 ??C (97.9 ??F) Pulse Min: 58 Max: 86 BP Min: 104/45 Max: 146/56 Resp Min: 16 Max: 17 SpO2 Min: 98 % Max: 99 % Most Recent: Vitals: 09/17/21 0745 BP: 104/45 Pulse: 65 Resp: 16 Temp: 36.5 ??C (97.7 ??F) SpO2: 98% Intake/Output Summary (Last 24 hours) at 09/17/2021 1014 Last data filed at 09/17/2021 0530 Gross per 24 hour Intake 840 ml Output 2830 ml Net -1990 ml Physical Exam Vital signs reviewed. Gen: NAD, pleasant HEENT: NCAT, EOMI, MMM Neck: Supple CV: RRR Pulm: Clear to Auscultation without wheezes or crackles Abd: Soft, Non Tender, Non Distended Ext: 1+ edema bilaterally but appearing to improve Skin: No rashes Neuro: No focal deficits, CN II-XII Grossly intact, Moving all extremities, short term memory deficit Lab/Diagnostic Review: Recent Results (from the past 36 hour(s)) POCT glucose Collection Time: 09/15/21 10:16 PM Result Value Ref Range Glucose, POC 206 (H) 70 - 199 mg/dL POCT glucose Collection Time: 09/16/21 9:15 AM Result Value Ref Range Glucose, POC 188 70 - 199 mg/dL POCT glucose Collection Time: 09/16/21 12:24 PM Result Value Ref Range Glucose, POC 212 (H) 70 - 199 mg/dL POCT glucose Collection Time: 09/16/21 5:17 PM Result Value Ref Range Glucose, POC 216 (H) 70 - 199 mg/dL CBC with auto differential Collection Time: 09/16/21 8:10 PM Result Value Ref Range WBC 10.1 (H) 3.8 - 9.9 K/cumm Hgb 8.0 (L) 11.9 - 15.5 g/dL Hct 26.9 (L) 35.6 - 45.5 % Plt 374 150 - 400 K/cumm MPV 11.5 9.1 - 12.3 fL RBC 2.82 (L) 3.90 - 5.20 M/cumm MCV 95.4 81.3 - 96.4 fL MCH 28.4 27.1 - 33.3 pg MCHC 29.7 (L) 32.3 - 35.7 g/dL RDW CV 16.1 (H) 11.1 - 14.9 % RDW SD 54.9 (H) 35.7 - 48.1 fL NRBC abs 0.00 0.00 - 0.01 K/cumm Basic metabolic panel Collection Time: 09/16/21 8:10 PM Result Value Ref Range Sodium 142 135 - 145 mmol/L Potassium, pl 5.0 (H) 3.3 - 4.9 mmol/L Chloride 102 97 - 110 mmol/L CO2 30 22 - 32 mmol/L Anion gap 10 2 - 15 mmol/L BUN 71 (H) 8 - 25 mg/dL Creatinine 2.34 (H) 0.60 - 1.10 mg/dL Glucose 266 (H) 70 - 199 mg/dL Calcium 9.8 8.5 - 10.3 mg/dL Magnesium Collection Time: 09/16/21 8:10 PM Result Value Ref Range Magnesium 2.3 1.4 - 2.5 mg/dL Hepatitis B Surface Antigen Collection Time: 09/16/21 8:10 PM Result Value Ref Range HepBsAg Nonreactive Nonreactive Hepatitis B core antibody, total Collection Time: 09/16/21 8:10 PM Result Value Ref Range Hep B core IgG/IgM Nonreactive Nonreactive Hepatitis B surface antibody (immune status) Collection Time: 09/16/21 8:10 PM Result Value Ref Range HBsAb (immune status) Nonreactive Differential, auto Collection Time: 09/16/21 8:10 PM Result Value Ref Range Neutrophil abs 5.6 1.7 - 6.5 K/cumm Imm gran abs 0.1 0.0 - 0.1 K/cumm Lymphocyte abs 3.4 (H) 0.8 - 3.3 K/cumm Monocyte abs 0.7 0.2 - 0.8 K/cumm Eosinophil abs 0.3 0.0 - 0.5 K/cumm Basophil abs 0.1 0.0 - 0.1 K/cumm Neutrophil pct 55.7 % Imm gran pct 0.7 % Lymphocyte pct 33.3 % Monocyte pct 7.1 % Eosinophil pct 2.6 % Basophil pct 0.6 % eGFR Collection Time: 09/16/21 8:10 PM Result Value Ref Range eGFR 22 (L) 90 - 130 mL/min/1.73 m2 POCT glucose Collection Time: 09/16/21 8:15 PM Result Value Ref Range Glucose, POC 288 (H) 70 - 199 mg/dL POCT glucose Collection Time: 09/17/21 7:43 AM Result Value Ref Range Glucose, POC 163 70 - 199 mg/dL I have reviewed the laboratory results. Imaging Results: US Abdomen Complete Narrative: EXAMINATION: COMPLETE ABDOMINAL SONOGRAM HISTORY: 70-year-old woman with diabetes mellitus and acute on chronic kidney disease. She is hospitalized with anasarca. Evaluate for cirrhosis. COMPARISON: None FINDINGS: Liver: The liver is normal in size. The echotexture is normal. The echogenicity is normal. There is no surface nodularity. No focal solid lesions are visualized. Gallbladder: The gallbladder is normal in size. There are no stones or sludge within the gallbladder. There is no gallbladder wall thickening. Bile Duct: There is no intrahepatic bile duct dilatation. The diameter of the common duct is 5 mm in the mid segment and 2 mm in the distal segment. Kidneys: There is no hydronephrosis in the visualized portions of the kidneys. Pancreas: Pancreas is not well visualized due to overlying bowel gas. Spleen: The spleen is normal in size. Aorta: The proximal aorta is normal. Inferior vena cava: The proximal IVC is normal. Other Findings: There is a right pleural effusion. Impression: 1. No sonographic findings of cirrhosis. 2. Right pleural effusion. Dr. Bronson (associate professor of radiology) personally participated in sonographic imaging of this patient. ANAY Bernardo also participated in sonographic imaging of this patient. Dictated by: Cristo Bronson MD The radiology attending physician has personally reviewed this study, and had reviewed and/or edited this written report and agrees with it. Electronically signed by: Mayuri Gibson M.D. I have independently reviewed and interpreted as above. Assessment/Plan Acute renal failure superimposed on stage 4 chronic kidney disease (CMS/HCC) (HCC) Assessment & Plan known CKD, likely 2/2 dm. Baseline Cr ~1.6, follows with nephrology outpatient. Cr 2.1 on admit w/ FEUrea 27% consistent with pre-renal injury such as cardiorenal syndrome, however normal LV/RV sys/diastolic function. Urinalysis with 1+ blood in setting of possible UTI. Cr improved initially after first dose of diuretics, worsened slightly with holding further diuresis & patient remained volume overloaded. -Ucx insignificant. -resumed IV diuresis 09/10, nonoliguric. -Daily electrolytes and renal function, unable to monitor strict I/O in s/o urinary incontinence, following serial weights. Avoid geller, if possible. - hold nephrotoxic agents/renally dose medications -F/u Cr 1.8-2.3 -High Density Press Operator to meet with family regarding diet restriction education. Attempted to reach daughter with update 09/16, line busy. * Volume overload Assessment & Plan Due to progressive CRF4. Presents with increasing [...] Goal weight 155lbs -Home with family at [place], board operator consulted to review salt restrictions. Anemia Assessment & Plan Progressive anemia with Hb 7.1 (dilutional?) from 9.7 over past month ago. 1+ blood in urine, neg cx. Pt denies gross hematuria, epistaxis, melena, hematochezia, hematemesis. Low FeSat, ferritin decreased to 179. Recent normal B12/Folate. Consistent with mixed AOCD/HECTOR. Concerning for occult bleeding, but Hb stable. More likely related to CRF. -Started oral iron supplementation -suspect anemia in s/o progressive CRF. Defer to renal timing of epo agents. -GI made aware 09/09, will order OP EGD/colonoscopy at time of discharge and GI team will facilitateexpedited scheduling -Hb trending down to 7, 7.4, type and screen updated. Guiac stool neg 09/15. -Consented for blood transfusion, goal Hb > 7, give lasix 20 IV if giving blood. Dementia ([facility]) Assessment & Plan Reported baseline dementia, `AOX2-3. Corroborated by daughter who she lives with. Frequent hospitalizations this year. Suspect med compliance may be an issue. Currently at baseline neurological status. Managed on delirium precautions. PT rec 24 supervision with family, OT rec SNF. Spoke with Daughter Honey Gayle [phone]. CM following for dispo planning & HHC orders placed 09/13. Pt's daughter states she works, but has daughter who could be available during that time. Asking about additional resources for home care. CM notified & additional resources provided. Plan home at [place] with 24hr supervision, [facility]. Type 2 diabetes mellitus with diabetic neuropathy, with long-term current use of insulin ([facility]) ([facility]) Assessment & Plan Home regimen lantus 18, lispro 5 TID [...] for strict med oversight by family at [place] reviewed with daughter this admit. Diabetic neuropathy ([facility]) ([facility]) Assessment & Plan Ongoing symptoms. Previously on lyrica and Likely exacerbated by volume status. Monitor for response with diuresis, improved with less swelling. Schizoaffective disorder, bipolar type ([facility]) ([facility]) Assessment & Plan Hx of schizoaffective disorder, follows with psych outpatient. Earlier in year had been on daily haldol, weaned off due to increased fatigue. Currently no active psychotic manic symptoms, mood is stable and pleasant, cooperative with exam, testing and management. Continued home risperdal 2mg BID, remains alert. No extrapyramidal symptoms noted on exam. Sharron Tobin MD [facility] [phone] * Dinh Hanson, PT - 09/17/2021 7:40 AM CDT Physical Therapy Physical Therapy Initial Assessment NOTE: This is a summary note for the north assessments completed during the evaluation session. For full details, review chart review for all flowsheets documented on by this physical therapist on thisdate. Vital signs documented in vital signs flowsheet. Assessment Assessment Prognosis: Good Problem List: Gait deviations, Decreased strength, Decreased endurance, Impaired balance Problem List Comments: PT Diagnosis: Chief complaint of HF exacerbation, anemia results in above listed activity deficits and impairments which prevent full participation in home and community mobility Plan Plan Plan : Plan of care initiated, If this is the last note, consider this the discharge summary PT Recommendation and Plan Recommendation/Plan PT Recommendation/Plan: Assisted Facility PT Frequency: 1-2x/wk Treatment/Interventions: Balance Training, Gait training, Strengthening, Therapeutic activity, Therapeutic exercise PT Equipment Recommended: None Progress: Improving as expected PT - Next Appointment: 09/19/21 PT Evaluation Complete: Yes General Information General Chart Reviewed: Yes Session Type: Evaluation PT Received On: 09/17/21 Safe Environment: Arm Band Checked, Call Light within Reach, Notified RN, Patient found in Supine Subjective: Agreeable to Therapy Family/Caregiver Present: No Prior Function Prior Function Level of [place]: Independent with ADLs, Independent functional transfers, Independent with ambulation, Independent with homemaking with ambulation Lives With: Daughter Receives Help From: Family (sweater operator from daughter) Fall within the last 6 months: No Home Living Home Living Type of Home: Apartment Home Layout: One level Home Access: Level entry Entrance Stairs-Rails: None Home Mobility Equipment: 4-Wheeled walker Precautions Precautions Precautions: Elopement Precaution Comments: PPE worn by PT included surgical mask, gloves Pain Pain Assessment Pain Assessment: 0-10 Pain Score: 0 - No pain Cognition Cognition Arousal/Alertness: Alert Orientation : Oriented X4 (person, place, time, situation) Following Commands: Follows all commands and directions without difficulty Safety Judgment: Good awareness of safety precautions 6 Clicks Basic Mobility - 6 Click [...] lot Total 6 Click Score (range 6-24): 16 Score Interpretation: 16 Bed Mobility Bed Mobility Bed Mobility: Yes Bed Mobility 1 Bed Mobility From 1: Supine Bed Mobility Type 1: To Bed Mobility to 1: Edge of bed Level of Assistance 1: Contact Guard Assist Bed Mobility Comments 1: CGA for safety Transfers Transfers Transfer: Yes Transfer 1 Transfer From 1: Sit Transfer Type 1: To and from Transfer to 1: Stand Technique 1: Sit to stand, Stand to sit Transfer Device 1: Wheeled walker Transfer Level of Assistance 1: Minimum Assist Trials/Comments 1: Min A for force productio, to control descent Balance Static Sitting Balance Static Sitting-Balance Support: Feet supported Static Sitting-Sitting Surface: Bed Static Sitting-Level of Assistance: Distant supervision Static Sitting-Comment/# of Minutes: safety Static Standing Balance Static Standing-Balance Support: Bilateral upper extremity supported (WW) Static Standing-Standing Surface: Floor Static Standing-Level of Assistance: Close supervision Static Standing-Comment/# of Minutes: safety Ambulation Ambulation Ambulation: Yes Ambulation 1 Distance (ft) 1: 50 Surface 1: Level tile Device 1: Wheeled walker Assistance 1: Contact Guard Assist Gait: Requires assist with 1: Maintaining balance Gait: Requires verbal cues to 1: Increase step length, Improve upright posture, Pace activity Quality of Gait 1: decreased step lenght, flexed trunk Stairs Stairs Stairs: No Curbs RLE Assessment RLE Assessment RLE Assessment: Within Functional Limits LLE Assessment LLE Assessment LLE Assessment: Within Functional Limits Equipment Used Equipment Use Equipment Use Comments: gait belt not donned Other Comments Other Comments Other PT Comments: Patient in agreement to participate on PT eval. Patient was able to complete bedmobility with CGA, sit<>stand with Min A and a WW, ambulated 50 feet with CGA and a WW. PT provided education in regard to importance of mobility during hospital stay in order to prevent physical deconditioning. Patient verbalized understanding. Patient reports having auto parts counter person assistance at home. At this time, PT recommending SNF following discharge. If not possible, patient requires supervision and HHPT. PT Goals Multi-Disciplinary Problems (from Physical Therapy) Active Problems Problem: Mobility Start Date: 09/17/21 Goal Start Date Expected End Date End Date LTG - Patient will ambulate household distance 09/17/21 09/24/21 -- Goal Start Date Expected End Date End Date STG - Patient will ambulate 09/17/21 09/24/21 -- Problem: Transfers Start Date: 09/17/21 Goal Start Date Expected End Date End Date STG - Patient to transfer to and from sit to supine 09/17/21 09/24/21 -- Goal Start Date Expected End Date End Date STG - Patient will transfer sit to and from stand 09/17/21 09/24/21 -- Reviewed By Felicity Majano RN 09/07/21 0527 * Kevin Cole MD - 09/16/2021 4:21 PM CDT NEPHROLOGY CONSULT SUBSEQUENT VISIT NOTE INTERVAL HISTORY: Pt currently receiving lasix 40 mg BID and metolazone 2.5 PO daily. SOB and leg swelling improving. Kidney function slight bumps up to 2.34 NAOEs, pt denies N/V, diarrhea, CP, SOB. REVIEW OF SYSTEMS: As per HPI. All other systems are negative. CURRENT MEDICATIONS: atorvastatin, 40 mg, oral, Daily carvediloL, 12.5 mg, oral, BID with meals (bkfst, dinner) famotidine, 20 mg, oral, Daily ferrous sulfate, 65 mg of elemental iron, oral, Daily with breakfast furosemide, 40 mg, intravenous, Q12H SOL heparin, 5,000 Units, subcutaneous, Q8H SOL insulin glargine, 25 Units, subcutaneous, Nightly insulin lispro, 0-10 Units, subcutaneous, TID with meals insulin lispro, 0-5 Units, subcutaneous, Nightly insulin lispro, 8 Units, subcutaneous, TID with meals polyethylene glycol, 17 g, oral, Daily pregabalin, 150 mg, oral, Daily risperiDONE, 2 mg, oral, Nightly PHYSICAL EXAMINATION: VITALS: BP 112/45 (BP Location: Left arm, Patient Position: Sitting) Pulse 58 Temp 36.6 ??C (97.9 ??F) (Oral) Resp 16 Ht 157.5 cm (5' 2 ) Wt 71.5 kg (157 lb 9.6 oz) SpO2 99% BMI 28.83 kg/m?? Temp: [36.3 ??C (97.3 ??F)-36.6 ??C (97.9 ??F)] 36.6 ??C (97.9 ??F) Pulse: [58-78] 58 BP: (111-121)/(45-71) 112/45 Resp: [16-17] 16 SpO2: [97 %-99 %] 99 % Temp Min: 36.3 ??C (97.3 ??F) Max: 36.6 ??C (97.9 ??F) Pulse Min: 58 Max: 78 BP Min: 111/47 Max: 121/71 Resp Min: 16 Max: 17 SpO2 Min: 97 % Max: 99 % General Awake, alert, lying in bed HEENT: moist oral mucosa. CV: heart sounds RRR, no murmurs, rub or gallop PULM: clear to auscultation, no rales. Abdomen: Soft, non-tender, BS present. MSK: 1-2+ BL pedal edema, symmetric LE SKIN: no rashes Neuro: AOx3, no focal motor deficits Psych: appropriate affect Dialysis Access Exam: NA Date 09/15/21 07 - 09/16/21 0659 09/16/21 07 - 09/17/21 0659 Shift [id number] 7265-1952 24 Hour Total 7664-5490 2882-0840 24 Hour Total INTAKE P.O. 480 1000 1480 290 290 Shift Total(mL/kg) 480(6.7) 1000(14) 1480(20.7) 290(4.1) 290(4.1) OUTPUT Urine(mL/kg/hr) 800(0.9) 800(0.5) 600 600 Shift Total(mL/kg) 800(11.2) 800(11.2) 600(8.4) 600(8.4) NET 480 200 680 -310 -310 Weight (kg) 71.5 71.5 71.5 71.5 71.5 71.5 LABORATORY DATA: Recent Labs Lab Units 09/15/21220909/14/[id number]/13/[id number] WBC K/cumm 10.3* 9.5 9.7 HEMOGLOBIN g/dL 7.4* 7.0* 7.5* PLATELETS K/cumm 320 316 300 Recent Labs Lab Units 09/15/21220909/14/[id number] SODIUM mmol/L 142 145 142 141 143 POTASSIUM PLASMA mmol/L 4.8 4.5 -- -- 4.2 CHLORIDE mmol/L 102 104 103 104 104 CO2 mmol/L BUN SERUM mg/dL 65* 59* 52* 47* 48* CREATININE mg/dL 2.34* 2.33* 1.95* 2.09* 1.98* ALBUMIN g/dL -- -- -- 3.2* -- CALCIUM mg/dL 9.4 9.4 9.7 9.1 9.2 MAGNESIUM mg/dL 2.1 2.1 2.1 1.9 1.9 Lab Results Component Value Date PTH 36.0 02/07/2021 CALCIUM 9.4 09/15/2021 PHOS 3.3 01/11/2020 Lab Results Component Value Date IRON 30 (L) 09/02/2021 TIBC 188 (L) 09/02/2021 TRANSFERSAT 16 (L) 09/02/2021 FERRITIN 179 (H) 09/07/2021 ASSESSMENT AND PLAN # Volume overload # Sub nephrotic ranged proteinuria TTE showed EF 69%, otherwise stable. US ruled out cirrhosis and hydronephrosis, IVC was normal. Past h/o nephrotic ranged proteinuria > 5 G (01/2021) which was improved to 1.5 G (06/2021) on lisinopril 20 mg daily. UPC on this admission 0.77 and UAC 0.5 HbA1C 8.4; HIV, HCV and RPR NR; FLCR 2.02 (elevated); pending immunotyping BL weight around 140; admission weight 161; today weight - 157 lb Swelling improving on lasix 40 BD and metolazone 2.5 mg daily; but Cr slight bumps up to 2.34; Please stop PO metolazone 2.5 mg daily Continue IVP lasix 40 mg BID Daily weight, low sodium intake < 2 G; Drink to thirst ?? # STEFANO on CKD or progressive CKD - Baseline Cr 1.4 - 1.6, recent OSH admission with peak Cr 3.96 trending down to 1.65 on Feb Cr in b . Cr admission 2.1. now fluctuating around 1.9-2. - UA - 2+ protein, 1+ blood, 11-20 RBC, > 50 WBC. FeUrea 27%; normal complement; ED and GBM Ab;FLCR 2.02 (elevated); pending immunotyping - Etiology - STEFANO in previous admission likely 2/2 recent increase in lisinopril and chronic usage of NSAID prior, which was seems to be improved after stopping the meds. Slight Cr rise in this admission might be from progressive underlying CKD (from uncontrolled DM and previous STEFANO episodes) or might be from STEFANO (unclear etiology; ? Tubular injury from recent COVID infection given microscopic hematuria or congestion nephropathy or other). There is no evidence of obstruction in US. ?? - No acute indication for HD; UOP improving - F/u immunotyping - will hold off metolazone given slight rising Cr. Cont: IVP lasix 40 mg BID for volume overload - Continue to trend renal function, strict I&Os, daily weights and closely monitor UOP. - Avoid nephrotoxin and hypotensive episodes. # Anemia in CKD Hb 7.4 TSAT 16% and Ferritin 179 Recommend IV iron infusion. ?? Kevin Cole MD Nephrology Fellow Consult 3 Service Contact (phone): [phone] After hours and weekends: please page [phone] Cosigned by Maritza Puri MD at 09/16/2021 9:35 PM CDT Associated attestation - Maritza Puri MD - 09/16/2021 9:35 PM CDT I have seen and examined the patient on 09/16/21. I agree with the findings and plan of care as documented in the resident's/fellow's note.. Maritza Puri MD * Galen, Maddi Butterfield MD - 09/16/2021 3:53 PM CDT Daily Progress Note Division of Hospital Medicine Name: Barbara Chakraborty Today: September 16, 2021 : 1950 Age: 70 y.o. female Admit: 09/06/2021 Bed: [id number] Subjective Chief complaint: Volume overload/anasarca 2/2 progressive CRF. Acute on CRF4. Proteinuria. 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 Cr 2.1 from 1.6 (b/l) on admit, CXR w/ trace pulm edema, UA neg, BNP 522. S/p lasix IV c/b slight bump in peak Cr 2.23, improved to 1.94 off diuretics, no assoc hyperkalemia. Diffuse anasarca on exam & IV diuresis (lasix 40 BID) resumed 09/10, I&Os with urinary incontinence, but dilma down 6kg since resuming diuresis. S/b renal, serology w/u & added metolazone daily 09/13-. F/u Cr 2.34, weight down 6.3kg since peak on 09/10. Diuresing to goal 155lbs. OT rec SNF, PT pending. Pt asking daily about going home. D/w daughter and reviewed progress, possible SANTOS. D/w renal and holding po metolazone (received 09/16 dose) & cont IV lasix. Pt sitting up in chair. Notes numb feet and asks why repeatedly. Pleasantly confused and cooperative with exam. No SOB. Objective Medications: Scheduled: atorvastatin, 40 mg, oral, Daily carvediloL, 12.5 mg, oral, BID with meals (bkfst, dinner) famotidine, 20 mg, oral, Daily ferrous sulfate, 65 mg of elemental iron, oral, Daily with breakfast furosemide, 40 mg, intravenous, Q12H SOL heparin, 5,000 Units, subcutaneous, Q8H SOL insulin glargine, 25 Units, subcutaneous, Nightly insulin lispro, 0-10 Units, subcutaneous, TID with meals insulin lispro, 0-5 Units, subcutaneous, Nightly insulin lispro, 8 Units, subcutaneous, TID with meals metOLazone, 2.5 mg, oral, Daily polyethylene glycol, 17 g, oral, Daily pregabalin, 150 mg, oral, Daily risperiDONE, 2 mg, oral, Nightly Infusions: PRN: ??? acetaminophen ??? capsaicin ??? dextrose OR dextrose ??? glucagon Vitals: 24hr Min/Max: Temp Min: 36.3 ??C (97.3 ??F) Max: 36.5 ??C (97.7 ??F) Pulse Min: 70 Max: 78 BP Min: 119/62 Max: 121/71 Resp Min: 16 Max: 17 SpO2 Min: 97 % Max: 98 % Most Recent: Vitals: 09/16/21 0510 BP: 121/71 Pulse: 74 Resp: 16 Temp: 36.5 ??C (97.7 ??F) SpO2: 97% Intake/Output Summary (Last 24 hours) at 09/16/2021 0844 Last data filed at 09/16/2021 0230 Gross per 24 hour Intake 1480 ml Output 800 ml Net 680 ml Physical Exam Vitals and nursing note reviewed. Constitutional: General: She is not in acute distress. Cognitive dysfunction, pleasantly agreeable. No behavioral issues. Appearance: She is obese. She is not ill-appearing or diaphoretic. Comments: Diffuse anasarca (upper and lower extremities) much improved, sitting in bed alert, conversational. Limited insight. Pleasant. HENT: Head: Normocephalic and atraumatic. Right Ear: External ear normal. Left Ear: External ear normal. Nose: Nose normal. No congestion or rhinorrhea. Mouth/Throat: Mouth: Mucous membranes are moist. Pharynx: Oropharynx is clear. No oropharyngeal exudate or posterior oropharyngeal erythema. Eyes: General: No scleral icterus. Extraocular Movements: Extraocular movements intact. Conjunctiva/sclera: Conjunctivae normal. Pupils: Pupils are equal, round, and reactive to light. Neck: Comments: Chest and neck with resolving edema. Cardiovascular: Rate and Rhythm: Normal rate and regular rhythm. Pulses: Normal pulses. Heart sounds: No murmur heard. No friction rub. No gallop. Pulmonary: Effort: Pulmonary effort is normal. No respiratory distress. Breath sounds: No stridor. No wheezing, rhonchi or rales. Comments: Decreased BS at bases bilaterally, shallow inpirations. No wheezing or rales appreciated. Chest: Chest wall: No tenderness. Abdominal: General: Bowel sounds are normal. There is no distension. Palpations: There is no mass. Tenderness: There is no abdominal tenderness. Hernia: No hernia is present. Comments: Obese, protuberant. No fluid wave appreciated. Musculoskeletal: General: Swelling markedly improved Cervical back: Normal range of motion and neck supple. Right lower leg: Edema present. Left lower leg: Edema present. Comments: RESOLVED pitting edema of Upper extremities, 1+pitting LE/pedal improving. 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 Skin: General: Skin is warm and dry. Capillary Refill: Capillary refill takes less than 2 seconds. Coloration: Skin is not jaundiced. Findings: No rash. Neurological: General: No focal deficit present. Mental Status: She is alert. Cranial Nerves: No cranial nerve deficit. Sensory: Sensory deficit present. Comments: Alert, oriented x3, but significant short term memory deficits, stocking glove distribution of neuropathy on hands, feet bilaterally and same conversation each day about neuropathy due to diabetes Oh I didn't know that . Psychiatric: Mood and Affect: Mood normal. Behavior: Behavior normal. Thought Content: Poor retention of new information, Repetitive comments. Lab/Diagnostic Review: Recent Results (from the past 36 hour(s)) POCT glucose Collection Time: 09/14/21 11:05 PM Result Value Ref Range Glucose, POC 165 70 - 199 mg/dL CBC with auto differential Collection Time: 09/14/21 11:31 PM Result Value Ref Range WBC 9.5 3.8 - 9.9 K/cumm Hgb 7.0 (L) 11.9 - 15.5 g/dL Hct 22.7 (L) 35.6 - 45.5 % Plt 316 150 - 400 K/cumm MPV 11.5 9.1 - 12.3 fL RBC 2.41 (L) 3.90 - 5.20 M/cumm MCV 94.2 81.3 - 96.4 fL MCH 29.0 27.1 - 33.3 pg MCHC 30.8 (L) 32.3 - 35.7 g/dL RDW CV 16.0 (H) 11.1 - 14.9 % RDW SD 55.1 (H) 35.7 - 48.1 fL NRBC abs 0.03 (H) 0.00 - 0.01 K/cumm Basic metabolic panel Collection Time: 09/14/21 11:31 PM Result Value Ref Range Sodium 145 135 - 145 mmol/L Potassium, pl 4.5 3.3 - 4.9 mmol/L Chloride 104 97 - 110 mmol/L CO2 28 22 - 32 mmol/L Anion gap 13 2 - 15 mmol/L BUN 59 (H) 8 - 25 mg/dL Creatinine 2.33 (H) 0.60 - 1.10 mg/dL Glucose 155 70 - 199 mg/dL Calcium 9.4 8.5 - 10.3 mg/dL Magnesium Collection Time: 09/14/21 11:31 PM Result Value Ref Range Magnesium 2.1 1.4 - 2.5 mg/dL Differential, auto Collection Time: 09/14/21 11:31 PM Result Value Ref Range Neutrophil abs 5.2 1.7 - 6.5 K/cumm Imm gran abs 0.1 0.0 - 0.1 K/cumm Lymphocyte abs 3.3 0.8 - 3.3 K/cumm Monocyte abs 0.8 0.2 - 0.8 K/cumm Eosinophil abs 0.2 0.0 - 0.5 K/cumm Basophil abs 0.0 0.0 - 0.1 K/cumm Neutrophil pct 54.3 % Imm gran pct 0.5 % Lymphocyte pct 34.2 % Monocyte pct 8.6 % Eosinophil pct 2.1 % Basophil pct 0.3 % eGFR Collection Time: 09/14/21 11:31 PM Result Value Ref Range eGFR 22 (L) 90 - 130 mL/min/1.73 m2 POCT glucose Collection Time: 09/15/21 8:03 AM Result Value Ref Range Glucose, POC 164 70 - 199 mg/dL POCT glucose Collection Time: 09/15/21 11:45 AM Result Value Ref Range Glucose, POC 221 (H) 70 - 199 mg/dL POCT glucose Collection Time: 09/15/21 5:07 PM Result Value Ref Range Glucose, POC 199 70 - 199 mg/dL CBC with auto differential Collection Time: 09/15/21 10:10 PM Result Value Ref Range WBC 10.3 (H) 3.8 - 9.9 K/cumm Hgb 7.4 (L) 11.9 - 15.5 g/dL Hct 23.3 (L) 35.6 - 45.5 % Plt 320 150 - 400 K/cumm MPV 11.3 9.1 - 12.3 fL RBC 2.49 (L) 3.90 - 5.20 M/cumm MCV 93.6 81.3 - 96.4 fL MCH 29.7 27.1 - 33.3 pg MCHC 31.8 (L) 32.3 - 35.7 g/dL RDW CV 16.2 (H) 11.1 - 14.9 % RDW SD 55.0 (H) 35.7 - 48.1 fL NRBC abs 0.00 0.00 - 0.01 K/cumm Basic metabolic panel Collection Time: 09/15/21 10:10 PM Result Value Ref Range Sodium 142 135 - 145 mmol/L Potassium, pl 4.8 3.3 - 4.9 mmol/L Chloride 102 97 - 110 mmol/L CO2 29 22 - 32 mmol/L Anion gap 11 2 - 15 mmol/L BUN 65 (H) 8 - 25 mg/dL Creatinine 2.34 (H) 0.60 - 1.10 mg/dL Glucose 210 (H) 70 - 199 mg/dL Calcium 9.4 8.5 - 10.3 mg/dL Magnesium Collection Time: 09/15/21 10:10 PM Result Value Ref Range Magnesium 2.1 1.4 - 2.5 mg/dL Differential, auto Collection Time: 09/15/21 10:10 PM Result Value Ref Range Neutrophil abs 5.9 1.7 - 6.5 K/cumm Imm gran abs 0.1 0.0 - 0.1 K/cumm Lymphocyte abs 3.2 0.8 - 3.3 K/cumm Monocyte abs 0.9 (H) 0.2 - 0.8 K/cumm Eosinophil abs 0.2 0.0 - 0.5 K/cumm Basophil abs 0.0 0.0 - 0.1 K/cumm Neutrophil pct 57.6 % Imm gran pct 0.5 % Lymphocyte pct 30.7 % Monocyte pct 8.7 % Eosinophil pct 2.2 % Basophil pct 0.3 % eGFR Collection Time: 09/15/21 10:10 PM Result Value Ref Range eGFR 22 (L) 90 - 130 mL/min/1.73 m2 POCT glucose Collection Time: 09/15/21 10:16 PM Result Value Ref Range Glucose, POC 206 (H) 70 - 199 mg/dL I have reviewed the laboratory results. Imaging Results: US Abdomen Complete Narrative: EXAMINATION: COMPLETE ABDOMINAL SONOGRAM HISTORY: 70-year-old woman with diabetes mellitus and acute on chronic kidney disease. She is hospitalized with anasarca. Evaluate for cirrhosis. COMPARISON: None FINDINGS: Liver: The liver is normal in size. The echotexture is normal. The echogenicity is normal. There is no surface nodularity. No focal solid lesions are visualized. Gallbladder: The gallbladder is normal in size. There are no stones or sludge within the gallbladder. There is no gallbladder wall thickening. Bile Duct: There is no intrahepatic bile duct dilatation. The diameter of the common duct is 5 mm in the mid segment and 2 mm in the distal segment. Kidneys: There is no hydronephrosis in the visualized portions of the kidneys. Pancreas: Pancreas is not well visualized due to overlying bowel gas. Spleen: The spleen is normal in size. Aorta: The proximal aorta is normal. Inferior vena cava: The proximal IVC is normal. Other Findings: There is a right pleural effusion. Impression: 1. No sonographic findings of cirrhosis. 2. Right pleural effusion. Dr. Bronson (associate professor of radiology) personally participated in sonographic imaging of this patient. ANAY Bernardo also participated in sonographic imaging of this patient. Dictated by: Cristo Bronson MD The radiology attending physician has personally reviewed this study, and had reviewed and/or edited this written report and agrees with it. Electronically signed by: Mayuri Gibson M.D. I have independently reviewed and interpreted CXR 2v 09/07 Minimally increased small right pleural effusion with mild right basilar atelectasis. No left pleural effusion. No pneumothorax. Cardiomediastinal silhouette is stable. Cr 1.91, 1.99, 2.23, 1.99, 1.94, 2.09 Ucx 09/07 insignificant TTE 09/10 Normal LV and RV size and systolic function. LVEF 69%. Normal global LV Myocardial longitudinal function and LV strain pattern. No significant valvular abnormalities noted. Estimated PA systolic pressure 40+RA(5-10) mmHg. Diastolic function is normal for age. LA is normal. Mild concentric LV hypertrophy. Normal Inferior vena cava. Normal aorta. No comparison study. Abd US 09/11 no cirrhosis, no hydronephrosis or hydroureter, +R pleural effusion TC 84, HDL 33 (low), LDL 20, TG 153 (elevated) C3 162, C4 34.7 (WNL), GBM Ab neg, HIV neg, ED neg ANCA, UIFix, pending HBV core and sAg, sAb cancelled by lab, reordered 09/16 SPEP kappa/lambda 2.02 (elevated), immunotyping results pending PRIOR Covid-19 RNA + on 08/13/2021 TTE 01/09/20 Normal left ventricular systolic function with no focal wall motion abnormalities. Normal left ventricular size. Normal left ventricular diastolic function. Ejection fraction is visually estimated at 67 %.The left atrium is normal in size. Normal left atrial pressure based on pulmonary vein inflow. The right atrium is normal in size. Right Ventricular Systolic Pressure could not be estimated due to inadequate visualization of TR jet. Assessment/Plan * Volume overload Assessment & Plan Due to progressive CRF4. Presents with increasing [...] weight 155lbs -Home with family at [place], board operator consulted to review salt restrictions. Anemia Assessment & Plan Progressive anemia with Hb 7.1 (dilutional?) from 9.7 over past month ago. 1+ blood in urine, neg cx. Pt denies gross hematuria, epistaxis, melena, hematochezia, hematemesis. Low FeSat, ferritin decreased to 179. Recent normal B12/Folate. Consistent with mixed AOCD/HECTOR. Concerning for occult bleeding, but Hb stable. More likely related to CRF. -Started oral iron supplementation -suspect anemia in s/o progressive CRF. Defer to renal timing of epo agents. -GI made aware 09/09, will order OP EGD/colonoscopy at time of discharge and GI team will facilitateexpedited scheduling -Hb trending down to 7, 7.4, type and screen updated. Guiac stool neg 09/15. -Consented for blood transfusion, goal Hb > 7, give lasix 20 IV if giving blood. Acute renal failure superimposed on stage 4 chronic kidney disease ([facility]) ([facility]) Assessment & Plan known CKD, likely 2/2 dm. Baseline Cr ~1.6, follows with nephrology outpatient. Cr 2.1 on admit w/ FEUrea 27% consistent with pre-renal injury such as cardiorenal syndrome, however normal LV/RV sys/diastolic function. Urinalysis with 1+ blood in setting of possible UTI. Cr improved initially after first dose of diuretics, worsened slightly with holding further diuresis & patient remained volume overloaded. -Ucx insignificant. -resumed IV diuresis 09/10, nonoliguric. -Daily electrolytes and renal function, unable to monitor strict I/O in s/o urinary incontinence, following serial weights. Avoid geller, if possible. - hold nephrotoxic agents/renally dose medications -F/u Cr 1.8-2.3 -High Density Press Operator to meet with family regarding diet restriction education. Attempted to reach daughter with update 09/16, gayathri bloomy. Dementia ([facility]) Assessment & Plan Reported baseline dementia, `AOX2-3. Corroborated by daughter who she lives with. Frequent hospitalizations this year. Suspect med compliance may be an issue. Currently at baseline neurological status. Managed on delirium precautions. PT rec 24 supervision with family, OT rec SNF. Spoke with Daughter Honey Gayle [phone]. CM following for dispo planning & HHC orders placed 09/13. Pt's daughter states she works, but has daughter who could be available during that time. Asking about additional resources for home care. CM notified & additional resources provided. Plan home at [place] with 24hr supervision, [facility]. Type 2 diabetes mellitus with diabetic neuropathy, with long-term current use of insulin ([facility] ([facility]) Assessment & Plan Home regimen lantus 18, lispro 5 TID [...] for strict med oversight by family at [place] reviewed with daughter this admit. Schizoaffective disorder, bipolar type ([facility]) ([facility]) Assessment & Plan Hx of schizoaffective disorder, follows with psych outpatient. Earlier in year had been on daily haldol, weaned off due to increased fatigue. Currently no active psychotic manic symptoms, mood is stable and pleasant, cooperative with exam, testing and management. Continued home risperdal 2mg BID, remains alert. No extrapyramidal symptoms noted on exam. Diabetic neuropathy ([facility]) ([facility]) Assessment & Plan Ongoing symptoms. Previously on lyrica and Likely exacerbated by volume status. Monitor for response with diuresis, improved with less swelling. * Maddi Aaron MD - 09/15/2021 3:41 PM CDT Daily Progress Note Division of Hospital Medicine Name: Barbara Chakraborty Today: September 15, 2021 : 1950 Age: 70 y.o. female Admit: 09/06/2021 Bed: [place] [id number] Subjective Chief complaint: Volume overload/anasarca. Acute on CRF4. Proteinuria. 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 Cr 2.1 from 1.6 (b/l) on admit, CXR w/ trace pulm edema, BNP 522. S/p lasix IV c/b slight bump in peak Cr 2.23, improved to 1.94 off diuretics, no assoc hyperkalemia. Diffuse anasarca on exam & IV diuresis resumed 09/10, I&Os with urinary incontinence, but dilma down 6kg since resuming diuresis. S/b renal, serologies Added metolazone daily 09/12. F/uCr 2.33, nonoliguric. Diffuse edema continues to improve on exam, but Rpt weight up, repeat ordered. Await dispo arrangements for safe DC. Objective Medications: Scheduled: atorvastatin, 40 mg, oral, Daily carvediloL, 12.5 mg, oral, BID with meals (bkfst, dinner) famotidine, 20 mg, oral, Daily ferrous sulfate, 65 mg of elemental iron, oral, Daily with breakfast furosemide, 40 mg, intravenous, Q12H SOL heparin, 5,000 Units, subcutaneous, Q8H SOL insulin glargine, 25 Units, subcutaneous, Nightly insulin lispro, 0-10 Units, subcutaneous, TID with meals insulin lispro, 0-5 Units, subcutaneous, Nightly insulin lispro, 8 Units, subcutaneous, TID with meals metOLazone, 2.5 mg, oral, Daily polyethylene glycol, 17 g, oral, Daily pregabalin, 150 mg, oral, Daily risperiDONE, 2 mg, oral, Nightly Infusions: PRN: ??? acetaminophen ??? capsaicin ??? dextrose OR dextrose ??? glucagon Vitals: 24hr Min/Max: Temp Min: 36.6 ??C (97.9 ??F) Max: 37.2 ??C (99 ??F) Pulse Min: 65 Max: 75 BP Min: 104/42 Max: 130/57 Resp Min: 16 Max: 16 SpO2 Min: 95 % Max: 98 % Most Recent: Vitals: 09/15/21 0835 BP: 125/51 Pulse: 65 Resp: 16 Temp: 36.6 ??C (97.9 ??F) SpO2: Intake/Output Summary (Last 24 hours) at 09/15/2021 0932 Last data filed at 09/15/2021 0307 Gross per 24 hour Intake -- Output 1400 ml Net -1400 ml Physical Exam Vitals and nursing note reviewed. Constitutional: General: She is not in acute distress. Cognitive dysfunction, pleasantly agreeable. No behavioral issues. Appearance: She is obese. She is not ill-appearing or diaphoretic. Comments: Diffuse anasarca (upper and lower extremities) much improved, sitting in bed alert, conversational. Limited insight. Pleasant. HENT: Head: Normocephalic and atraumatic. Right Ear: External ear normal. Left Ear: External ear normal. Nose: Nose normal. No congestion or rhinorrhea. Mouth/Throat: Mouth: Mucous membranes are moist. Pharynx: Oropharynx is clear. No oropharyngeal exudate or posterior oropharyngeal erythema. Eyes: General: No scleral icterus. Extraocular Movements: Extraocular movements intact. Conjunctiva/sclera: Conjunctivae normal. Pupils: Pupils are equal, round, and reactive to light. Neck: Comments: Chest and neck with resolving edema. Cardiovascular: Rate and Rhythm: Normal rate and regular rhythm. Pulses: Normal pulses. Heart sounds: No murmur heard. No friction rub. No gallop. Pulmonary: Effort: Pulmonary effort is normal. No respiratory distress. Breath sounds: No stridor. No wheezing, rhonchi or rales. Comments: Decreased BS at bases bilaterally, shallow inpirations. No wheezing or rales appreciated. Chest: Chest wall: No tenderness. Abdominal: General: Bowel sounds are normal. There is no distension. Palpations: There is no mass. Tenderness: There is no abdominal tenderness. Hernia: No hernia is present. Comments: Obese, protuberant. No fluid wave appreciated. Musculoskeletal: General: Swelling markedly improved Cervical back: Normal range of motion and neck supple. Right lower leg: Edema present. Left lower leg: Edema present. Comments: RESOLVED pitting edema of Upper extremities, 1+pitting LE/pedal. 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 Skin: General: Skin is warm and dry. Capillary Refill: Capillary refill takes less than 2 seconds. Coloration: Skin is not jaundiced. Findings: No rash. Neurological: General: No focal deficit present. Mental Status: She is alert. Cranial Nerves: No cranial nerve deficit. Sensory: Sensory deficit present. Comments: Alert, oriented x3, but significant short term memory deficits, stocking glove distribution of neuropathy on hands, feet bilaterally and same conversation each day about neuropathy due to diabetes Oh I didn't know that . Psychiatric: Mood and Affect: Mood normal. Behavior: Behavior normal. Thought Content: Poor retention of new information, Repetitive comments. Lab/Diagnostic Review: Recent Results (from the past 36 hour(s)) C3 complement Collection Time: 09/13/21 9:35 PM Result Value Ref Range Complement C3 162.0 90.0 - 180.0 mg/dL C4 complement Collection Time: 09/13/21 9:35 PM Result Value Ref Range Complement C4 34.7 10.0 - 40.0 mg/dL Glomerular basement membrane antibodies Collection Time: 09/13/21 9:35 PM Result Value Ref Range GBM ab, IgG <0.2 <=0.9 Ab Index Protein Electrophoresis, With Reflex, Serum Collection Time: 09/13/21 9:35 PM Result Value Ref Range Protein, sr 6.8 6.2 - 8.2 g/dL Immunoglobulin free light chains Collection Time: 09/13/21 9:35 PM Result Value Ref Range [place]/Lambda ratio 2.02 (H) 0.26 - 1.65 [place] free light chain 7.65 (H) 0.33 - 1.94 mg/dL Lambda free light chain 3.79 (H) 0.57 - 2.63 mg/dL HIV 1/2 Antibody plus p24 Antigen Blood Collection Time: 09/13/21 9:35 PM Specimen: Blood Result Value Ref Range HIV 1/2 Ab + p24 Ag Nonreactive Nonreactive CBC with auto differential Collection Time: 09/13/21 9:35 PM Result Value Ref Range WBC 9.7 3.8 - 9.9 K/cumm Hgb 7.5 (L) 11.9 - 15.5 g/dL Hct 24.7 (L) 35.6 - 45.5 % Plt 300 150 - 400 K/cumm MPV 11.7 9.1 - 12.3 fL RBC 2.63 (L) 3.90 - 5.20 M/cumm MCV 93.9 81.3 - 96.4 fL MCH 28.5 27.1 - 33.3 pg MCHC 30.4 (L) 32.3 - 35.7 g/dL RDW CV 16.2 (H) 11.1 - 14.9 % RDW SD 54.8 (H) 35.7 - 48.1 fL NRBC abs 0.00 0.00 - 0.01 K/cumm Magnesium Collection Time: 09/13/21 9:35 PM Result Value Ref Range Magnesium 2.1 1.4 - 2.5 mg/dL Differential, auto Collection Time: 09/13/21 9:35 PM Result Value Ref Range Neutrophil abs 5.6 1.7 - 6.5 K/cumm Imm gran abs 0.1 0.0 - 0.1 K/cumm Lymphocyte abs 3.0 0.8 - 3.3 K/cumm Monocyte abs 0.7 0.2 - 0.8 K/cumm Eosinophil abs 0.3 0.0 - 0.5 K/cumm Basophil abs 0.0 0.0 - 0.1 K/cumm Neutrophil pct 58.0 % Imm gran pct 0.5 % Lymphocyte pct 31.2 % Monocyte pct 7.3 % Eosinophil pct 2.7 % Basophil pct 0.3 % Basic metabolic panel, serum Collection Time: 09/13/21 9:35 PM Result Value Ref Range Sodium 142 135 - 145 mmol/L Potassium, sr 4.7 3.6 - 5.2 mmol/L Chloride 103 97 - 110 mmol/L CO2 27 22 - 32 mmol/L Anion gap 12 2 - 15 mmol/L BUN 52 (H) 8 - 25 mg/dL Creatinine 1.95 (H) 0.60 - 1.10 mg/dL Glucose 169 70 - 199 mg/dL Calcium 9.7 8.5 - 10.3 mg/dL eGFR Collection Time: 09/13/21 9:35 PM Result Value Ref Range eGFR 27 (L) 90 - 130 mL/min/1.73 m2 POCT glucose Collection Time: 09/13/21 9:46 PM Result Value Ref Range Glucose, POC 165 70 - 199 mg/dL POCT glucose Collection Time: 09/14/21 9:26 AM Result Value Ref Range Glucose, POC 166 70 - 199 mg/dL POCT glucose Collection Time: 09/14/21 11:36 AM Result Value Ref Range Glucose, POC 189 70 - 199 mg/dL Protein / creatinine ratio, urine, random Collection Time: 09/14/21 11:49 AM Result Value Ref Range Protein, ur, quant 48.8 mg/dL Creatinine Ur 62.8 mg/dL Protein/creatinine ratio 777.1 (H) 0.0 - 180.0 mg/g CR Albumin Creatinine Ratio, Urine Collection Time: 09/14/21 11:49 AM Result Value Ref Range Albumin Ur 314.0 mg/L Creatinine Ur 62.8 mg/dL Albumin Creatinine Ratio, Ur 500 (H) 1 - 29 mg/g POCT glucose Collection Time: 09/14/21 5:15 PM Result Value Ref Range Glucose, POC 199 70 - 199 mg/dL POCT glucose Collection Time: 09/14/21 11:05 PM Result Value Ref Range Glucose, POC 165 70 - 199 mg/dL CBC with auto differential Collection Time: 09/14/21 11:31 PM Result Value Ref Range WBC 9.5 3.8 - 9.9 K/cumm Hgb 7.0 (L) 11.9 - 15.5 g/dL Hct 22.7 (L) 35.6 - 45.5 % Plt 316 150 - 400 K/cumm MPV 11.5 9.1 - 12.3 fL RBC 2.41 (L) 3.90 - 5.20 M/cumm MCV 94.2 81.3 - 96.4 fL MCH 29.0 27.1 - 33.3 pg MCHC 30.8 (L) 32.3 - 35.7 g/dL RDW CV 16.0 (H) 11.1 - 14.9 % RDW SD 55.1 (H) 35.7 - 48.1 fL NRBC abs 0.03 (H) 0.00 - 0.01 K/cumm Basic metabolic panel Collection Time: 09/14/21 11:31 PM Result Value Ref Range Sodium 145 135 - 145 mmol/L Potassium, pl 4.5 3.3 - 4.9 mmol/L Chloride 104 97 - 110 mmol/L CO2 28 22 - 32 mmol/L Anion gap 13 2 - 15 mmol/L BUN 59 (H) 8 - 25 mg/dL Creatinine 2.33 (H) 0.60 - 1.10 mg/dL Glucose 155 70 - 199 mg/dL Calcium 9.4 8.5 - 10.3 mg/dL Magnesium Collection Time: 09/14/21 11:31 PM Result Value Ref Range Magnesium 2.1 1.4 - 2.5 mg/dL Differential, auto Collection Time: 09/14/21 11:31 PM Result Value Ref Range Neutrophil abs 5.2 1.7 - 6.5 K/cumm Imm gran abs 0.1 0.0 - 0.1 K/cumm Lymphocyte abs 3.3 0.8 - 3.3 K/cumm Monocyte abs 0.8 0.2 - 0.8 K/cumm Eosinophil abs 0.2 0.0 - 0.5 K/cumm Basophil abs 0.0 0.0 - 0.1 K/cumm Neutrophil pct 54.3 % Imm gran pct 0.5 % Lymphocyte pct 34.2 % Monocyte pct 8.6 % Eosinophil pct 2.1 % Basophil pct 0.3 % eGFR Collection Time: 09/14/21 11:31 PM Result Value Ref Range eGFR 22 (L) 90 - 130 mL/min/1.73 m2 POCT glucose Collection Time: 09/15/21 8:03 AM Result Value Ref Range Glucose, POC 164 70 - 199 mg/dL I have reviewed the laboratory results. Imaging Results: US Abdomen Complete Narrative: EXAMINATION: COMPLETE ABDOMINAL SONOGRAM HISTORY: 70-year-old woman with diabetes mellitus and acute on chronic kidney disease. She is hospitalized with anasarca. Evaluate for cirrhosis. COMPARISON: None FINDINGS: Liver: The liver is normal in size. The echotexture is normal. The echogenicity is normal. There is no surface nodularity. No focal solid lesions are visualized. Gallbladder: The gallbladder is normal in size. There are no stones or sludge within the gallbladder. There is no gallbladder wall thickening. Bile Duct: There is no intrahepatic bile duct dilatation. The diameter of the common duct is 5 mm in the mid segment and 2 mm in the distal segment. Kidneys: There is no hydronephrosis in the visualized portions of the kidneys. Pancreas: Pancreas is not well visualized due to overlying bowel gas. Spleen: The spleen is normal in size. Aorta: The proximal aorta is normal. Inferior vena cava: The proximal IVC is normal. Other Findings: There is a right pleural effusion. Impression: 1. No sonographic findings of cirrhosis. 2. Right pleural effusion. Dr. Bronson (associate professor of radiology) personally participated in sonographic imaging of this patient. ANAY Bernardo also participated in sonographic imaging of this patient. Dictated by: Cristo Bronson MD The radiology attending physician has personally reviewed this study, and had reviewed and/or edited this written report and agrees with it. Electronically signed by: Mayuri Gibson M.D. I have independently reviewed and interpreted CXR 2v 09/07 Minimally increased small right pleural effusion with mild right basilar atelectasis. No left pleural effusion. No pneumothorax. Cardiomediastinal silhouette is stable. Cr 1.91, 1.99, 2.23, 1.99, 1.94, 2.09 Ucx 09/07 insignificant TTE 09/10 Normal LV and RV size and systolic function. LVEF 69%. Normal global LV Myocardial longitudinal function and LV strain pattern. No significant valvular abnormalities noted. Estimated PA systolic pressure 40+RA(5-10) mmHg. Diastolic function is normal for age. LA is normal. Mild concentric LV hypertrophy. Normal Inferior vena cava. Normal aorta. No comparison study. Abd US 09/11 no cirrhosis, no hydronephrosis or hydroureter, +R pleural effusion TC 84, HDL 33 (low), LDL 20, TG 153 (elevated) C3 162, C4 34.7 (WNL), GBM Ab neg, HIV neg ED, ANCA, SPEP, UIFix, HBV core and sAg, sAb still pending PRIOR Covid-19 RNA + on 08/13/2021 TTE 01/09/20 Normal left ventricular systolic function with no focal wall motion abnormalities. Normal left ventricular size. Normal left ventricular diastolic function. Ejection fraction is visually estimated at 67 %.The left atrium is normal in size. Normal left atrial pressure based on pulmonary vein inflow. The right atrium is normal in size. Right Ventricular Systolic Pressure could not be estimated due to inadequate visualization of TR jet. Assessment/Plan * Volume overload Assessment & Plan Due to progressive CRF4. Presents with increasing [...] - renal consulted regarding volume management, possible financial compliance manager dialysis planning, expedite OP f/u. Serologies and urine studies ordered. -Added metolazone 2.5mg/daily per renal. -Anticipate likely transition to PO agents prior to DC with ongoing clinical improvement. Goal weight 145-150lbs -Home with family at [place], board operator consulted to review salt restrictions. Anemia Assessment & Plan Progressive anemia with Hb 7.1 (dilutional?) from 9.7 over past month ago. 1+ blood in urine, neg cx. Pt denies gross hematuria, epistaxis, melena, hematochezia, hematemesis. Low FeSat, ferritin decreased to 179. Recent normal B12/Folate. Consistent with mixed AOCD/HECTOR. Concerning for occult bleeding, but Hb stable. More likely related to CRF. -Started oral iron supplementation -suspect anemia in s/o progressive CRF. Defer to renal timing of epo agents. -GI made aware 09/09, will order OP EGD/colonoscopy at time of discharge and GI team will facilitateexpedited scheduling -Hb trending down to 7, type and screen tonight. Guiac stool. -Consented for blood transfusion, goal Hb > 7, give lasix 20 IV if giving blood. Acute renal failure superimposed on stage 4 chronic kidney disease ([facility] ([facility]) Assessment & Plan known CKD, likely 2/2 dm. Baseline Cr ~1.6, follows with nephrology outpatient. Cr 2.1 on admit w/ FEUrea 27% consistent with pre-renal injury such as cardiorenal syndrome, however normal LV/RV sys/diastolic function. Urinalysis with 1+ blood in setting of possible UTI. Cr improved initially after first dose of diuretics, worsened slightly with holding further diuresis & patient remained volume overloaded. -Ucx insignificant. -resumed IV diuresis 09/10, nonoliguric. -Daily electrolytes and renal function, unable to monitor strict I/O in s/o urinary incontinence, following serial weights. Avoid geller, if possible. - hold nephrotoxic agents/renally dose medications -F/u Cr 1.8-2.3 -High Density Press Operator to meet with family regarding diet restriction education. Dementia ([facility]) Assessment & Plan Reported baseline dementia, `AOX2-3. Corroborated by daughter who she lives with. Frequent hospitalizations this year. Suspect med compliance may be an issue. Currently at baseline neurological status -delirium precautions - PT rec 24 supervision with family, OT rec SNF. Spoke with Daughter Honey Gayle [phone]. CM following for dispo planning. [facility] orders placed 09/13. Pt's daughter states she works, but has daughter who could be available during that time. Asking about additional resources for home care. CM notified & additional resources provided. Plan home [place] with 24hr supervision. Type 2 diabetes mellitus with diabetic neuropathy, with long-term current use of insulin ([facility] ([facility]) Assessment & Plan Home regimen lantus 18, lispro 5 TID [...] and nephropathy. Med oversight by family at [place]. Schizoaffective disorder, bipolar type ([facility]) ([facility]) Assessment & Plan Hx of schizoaffective disorder, follows with psych outpatient. Earlier in year had been on daily haldol, weaned off due to increased fatigue. Currently no active psychotic manic symptoms, mood is stable and pleasant, cooperative with exam, testing and management. Continued home risperdal 2mg BID, remains alert. Diabetic neuropathy ([facility] ([facility]) Assessment & Plan Ongoing symptoms. Previously on lyrica and Likely exacerbated by volume status. Monitor for response with diuresis, improved with less swelling. No longer acute issue. * Kevin Cole MD - 09/14/2021 2:35 PM CDT NEPHROLOGY CONSULT SUBSEQUENT VISIT NOTE INTERVAL HISTORY: Pt received lasix 40 mg AM and metolazone 2.5 PO x1 yesterday. UOP and leg swelling improving. No MYLES yesterday during physical therapy. Kidney function stable around 2. NAOEs, pt denies N/V, diarrhea, CP, SOB. REVIEW OF SYSTEMS: As per HPI. All other systems are negative. CURRENT MEDICATIONS: atorvastatin, 40 mg, oral, Daily carvediloL, 12.5 mg, oral, BID with meals (bkfst, dinner) famotidine, 20 mg, oral, Daily ferrous sulfate, 65 mg of elemental iron, oral, Daily with breakfast furosemide, 40 mg, intravenous, Q12H SOL heparin, 5,000 Units, subcutaneous, Q8H SOL insulin glargine, 25 Units, subcutaneous, Nightly insulin lispro, 0-10 Units, subcutaneous, TID with meals insulin lispro, 0-5 Units, subcutaneous, Nightly insulin lispro, 8 Units, subcutaneous, TID with meals [START ON 09/15/2021] metOLazone, 2.5 mg, oral, Daily polyethylene glycol, 17 g, oral, Daily pregabalin, 150 mg, oral, Daily risperiDONE, 2 mg, oral, Nightly PHYSICAL EXAMINATION: VITALS: BP 124/50 (BP Location: Left arm, Patient Position: Lying) Pulse 75 Temp 36.6 ??C (97.9??F) (Oral) Resp 16 Ht 157.5 cm (5' 2 ) Wt 72.3 kg (159 lb 8 oz) SpO2 95% BMI 29.17 kg/m?? Temp: [36.6 ??C (97.9 ??F)-36.7 ??C (98.1 ??F)] 36.6 ??C (97.9 ??F) Pulse: [72-77] 75 BP: (124-135)/(47-68) 124/50 Resp: [16-20] 16 SpO2: [95 %-97 %] 95 % Temp Min: 36.6 ??C (97.9 ??F) Max: 36.7 ??C (98.1 ??F) Pulse Min: 72 Max: 77 BP Min: 124/50 Max: 135/68 Resp Min: 16 Max: 20 SpO2 Min: 95 % Max: 97 % General Awake, alert, lying in bed HEENT: moist oral mucosa. CV: heart sounds RRR, no murmurs, rub or gallop PULM: clear to auscultation, no rales. Abdomen: Soft, non-tender, BS present. MSK: 1-2+ BL pedal edema, symmetric LE SKIN: no rashes Neuro: AOx3, no focal motor deficits Psych: appropriate affect Dialysis Access Exam: NA Date 09/13/21 07 - 09/14/21 0659 09/14/21 07 - 09/15/21 0659 Shift [id number] 5888-6144 24 Hour Total [id number] 6495-5290 24 Hour Total INTAKE P.O. 600 300 900 120 120 Shift Total(mL/kg) 600(8.2) 300(4.1) 900(12.4) 120(1.7) 120(1.7) OUTPUT Urine(mL/kg/hr) 1000(1.2) 1000(0.6) 400 400 Shift Total(mL/kg) 1000(13.8) 1000(13.8) 400(5.5) 400(5.5) NET 600 -700 -100 -280 -280 Weight (kg) 72.9 72.3 72.3 72.3 72.3 72.3 LABORATORY DATA: Recent Labs Lab Units 09/13/21213409/12/21205809/11/212234 WBC K/cumm 9.7 10.3* 10.0* HEMOGLOBIN g/dL 7.5* 7.5* 7.5* PLATELETS K/cumm 300 305 272 Recent Labs Lab Units 09/13/21213409/12/21205809/11/21223409/10/21210909/09/21 2149 SODIUM mmol/L 142 141 143 142 145 POTASSIUM PLASMA mmol/L -- -- 4.2 4.2 4.2 CHLORIDE mmol/L 103 104 104 105 107 CO2 mmol/L 27 25 27 26 27 BUN SERUM mg/dL 52* 47* 48* 42* 43* CREATININE mg/dL 1.95* 2.09* 1.98* 1.88* 1.94* ALBUMIN g/dL -- 3.2* -- -- -- CALCIUM mg/dL 9.7 9.1 9.2 9.4 9.4 MAGNESIUM mg/dL 2.1 1.9 1.9 1.9 1.8 Lab Results Component Value Date PTH 36.0 02/07/2021 CALCIUM 9.7 09/13/2021 PHOS 3.3 01/11/2020 Lab Results Component Value Date IRON 30 (L) 09/02/2021 TIBC 188 (L) 09/02/2021 TRANSFERSAT 16 (L) 09/02/2021 FERRITIN 179 (H) 09/07/2021 ASSESSMENT AND PLAN # Volume overload # Sub nephrotic ranged proteinuria TTE showed EF 69%, otherwise stable. US ruled out cirrhosis and hydronephrosis, IVC was normal. Past h/o nephrotic ranged proteinuria > 5 G (01/2021) which was improved to 1.5 G (06/2021) on lisinopril 20 mg daily. UPC on this admission 0.77 and UAC 0.5 HbA1C 8.4; HIV, HCV and RPR NR BL weight around 140; admission weight 161; today weight - 159 Swelling improving on lasix 40 AM and metolazone 2.5 x 1 (09/13) Recommend lasix 40 mg BID IVP and PO metolazone 2.5 mg daily Off amlodipine Pending MM work up (SPEP with reflex to IF, serum free light chain ratio and urine immunofixation) Daily weight, low sodium intake < 2 G; Drink to thirst ?? # STEFANO on CKD or progressive CKD - Baseline Cr 1.4 - 1.6, recent OSH admission with peak Cr 3.96 trending down to 1.65 on Feb Cr in Aug 09. Cr admission 2.1. now fluctuating around 1.9-2. - UA - 2+ protein, 1+ blood, 11-20 RBC, > 50 WBC. FeUrea 27%; normal complement and GBM Ab - Etiology - STEFANO in previous admission likely 2/2 recent increase in lisinopril and chronic usage of NSAID prior, which was seems to be improved after stopping the meds. Slight Cr rise in this admission might be from progressive underlying CKD (from uncontrolled DM and previous STEFANO episodes) or might be from STEFANO (unclear etiology; ? Tubular injury from recent COVID infection given microscopic hematuria or congestion nephropathy or other). There is no evidence of obstruction in US. ?? - No acute indication for HD; UOP improving with stable Cr - pending GN work up given microscopic hematuria (ED, ANCA, Cryo) - Pending MM work up - Continue to trend renal function, strict I&Os, daily weights and closely monitor UOP. - Avoid nephrotoxin and hypotensive episodes. ? Kevin Cole MD Nephrology Fellow Consult 3 Service Contact (phone): [phone] After hours and weekends: please page [phone] Cosigned by Rachael Duong MD at 09/14/2021 5:21 PM CDT Associated attestation - Rachael Duong MD - 09/14/2021 5:21 PM CDT I have seen and examined the patient on 09/14/21. I agree with the findings and plan of care as documented in the resident's/fellow's note. Rachael Duong MD * Maddi Aaron MD - 09/14/2021 12:23 PM CDT Daily Progress Note Division of Hospital Medicine Name: Barbara Chakraborty Today: September 14, 2021 : 1950 Age: 70 y.o. female Admit: 09/06/2021 Bed: [id number] Subjective Chief complaint: Volume overload/anasarca. Acute on CRF4. Proteinuria. 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 Cr 2.1 from 1.6 (b/l) on admit, CXR w/ trace pulm edema, BNP 522. S/p lasix IV c/b slight bump in peak Cr 2.23, improved to 1.94 off diuretics, no assoc hyperkalemia. Diffuse anasarca on exam & IV diuresis resumed 09/10, I&Os with urinary incontinence, but dilma down 6kg since resuming diuresis. S/b renal, serologies Added metolazone daily 09/12. F/uCr 1.95. Awaiting volume improvement, weight down to 73kg. Await dispo arrangements for safe DC. Objective Medications: Scheduled: atorvastatin, 40 mg, oral, Daily carvediloL, 12.5 mg, oral, BID with meals (bkfst, dinner) famotidine, 20 mg, oral, Daily ferrous sulfate, 65 mg of elemental iron, oral, Daily with breakfast furosemide, 40 mg, oral, Daily heparin, 5,000 Units, subcutaneous, Q8H SOL insulin glargine, 25 Units, subcutaneous, Nightly insulin lispro, 0-10 Units, subcutaneous, TID with meals insulin lispro, 0-5 Units, subcutaneous, Nightly insulin lispro, 8 Units, subcutaneous, TID with meals polyethylene glycol, 17 g, oral, Daily pregabalin, 150 mg, oral, Daily risperiDONE, 2 mg, oral, Nightly Infusions: PRN: ??? acetaminophen ??? capsaicin ??? dextrose OR dextrose ??? glucagon Vitals: 24hr Min/Max: Temp Min: 36.7 ??C (98.1 ??F) Max: 36.8 ??C (98.2 ??F) Pulse Min: 72 Max: 77 BP Min: 122/53 Max: 135/68 Resp Min: 18 Max: 20 SpO2 Min: 95 % Max: 97 % Most Recent: Vitals: 09/14/21 0929 BP: 124/47 Pulse: 72 Resp: Temp: SpO2: Intake/Output Summary (Last 24 hours) at 09/14/2021 0952 Last data filed at 09/14/2021 0925 Gross per 24 hour Intake 720 ml Output 1000 ml Net -280 ml Physical Exam Vitals and nursing note reviewed. Constitutional: General: She is not in acute distress. Cognitive dysfunction, pleasantly agreeable. No behavioral issues. Appearance: She is obese. She is not ill-appearing or diaphoretic. Comments: Diffuse anasarca much improved, sitting in bed alert, conversational. Limited insight. Pleasant. HENT: Head: Normocephalic and atraumatic. Right Ear: External ear normal. Left Ear: External ear normal. Nose: Nose normal. No congestion or rhinorrhea. Mouth/Throat: Mouth: Mucous membranes are moist. Pharynx: Oropharynx is clear. No oropharyngeal exudate or posterior oropharyngeal erythema. Eyes: General: No scleral icterus. Extraocular Movements: Extraocular movements intact. Conjunctiva/sclera: Conjunctivae normal. Pupils: Pupils are equal, round, and reactive to light. Neck: Comments: Chest and neck with resolving edema. Cardiovascular: Rate and Rhythm: Normal rate and regular rhythm. Pulses: Normal pulses. Heart sounds: No murmur heard. No friction rub. No gallop. Pulmonary: Effort: Pulmonary effort is normal. No respiratory distress. Breath sounds: No stridor. No wheezing, rhonchi or rales. Comments: Decreased BS at bases bilaterally, shallow inpirations. No wheezing or rales appreciated. Chest: Chest wall: No tenderness. Abdominal: General: Bowel sounds are normal. There is no distension. Palpations: There is no mass. Tenderness: There is no abdominal tenderness. Hernia: No hernia is present. Comments: Obese, protuberant. No fluid wave appreciated. Musculoskeletal: General: Swelling markedly improved Cervical back: Normal range of motion and neck supple. Right lower leg: Edema present. Left lower leg: Edema present. Comments: RESOLVED pitting edema of Upper extremities, 1+pitting LE/pedal. 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 Skin: General: Skin is warm and dry. Capillary Refill: Capillary refill takes less than 2 seconds. Coloration: Skin is not jaundiced. Findings: No rash. Neurological: General: No focal deficit present. Mental Status: She is alert. Cranial Nerves: No cranial nerve deficit. Sensory: Sensory deficit present. Comments: Alert, oriented, stocking glove distribution of neuropathy on hands, feet bilaterally. Psychiatric: Mood and Affect: Mood normal. Behavior: Behavior normal. Thought Content: Thought content normal. Lab/Diagnostic Review: Recent Results (from the past 36 hour(s)) POCT glucose Collection Time: 09/13/21 8:39 AM Result Value Ref Range Glucose, POC 133 70 - 199 mg/dL POCT glucose Collection Time: 09/13/21 1:34 PM Result Value Ref Range Glucose, POC 190 70 - 199 mg/dL POCT glucose Collection Time: 09/13/21 6:07 PM Result Value Ref Range Glucose, POC 159 70 - 199 mg/dL Sodium, urine, random Collection Time: 09/13/21 7:39 PM Result Value Ref Range Sodium, ur 82 mmol/L Potassium, urine, random Collection Time: 09/13/21 7:39 PM Result Value Ref Range Potassium conc, ur 20.8 mmol/L Chloride, urine, random Collection Time: 09/13/21 7:39 PM Result Value Ref Range Chloride, ur 69 mmol/L C3 complement Collection Time: 09/13/21 9:35 PM Result Value Ref Range Complement C3 162.0 90.0 - 180.0 mg/dL C4 complement Collection Time: 09/13/21 9:35 PM Result Value Ref Range Complement C4 34.7 10.0 - 40.0 mg/dL Protein Electrophoresis, With Reflex, Serum Collection Time: 09/13/21 9:35 PM Result Value Ref Range Protein, sr 6.8 6.2 - 8.2 g/dL HIV 1/2 Antibody plus p24 Antigen Blood Collection Time: 09/13/21 9:35 PM Specimen: Blood Result Value Ref Range HIV 1/2 Ab + p24 Ag Nonreactive Nonreactive CBC with auto differential Collection Time: 09/13/21 9:35 PM Result Value Ref Range WBC 9.7 3.8 - 9.9 K/cumm Hgb 7.5 (L) 11.9 - 15.5 g/dL Hct 24.7 (L) 35.6 - 45.5 % Plt 300 150 - 400 K/cumm MPV 11.7 9.1 - 12.3 fL RBC 2.63 (L) 3.90 - 5.20 M/cumm MCV 93.9 81.3 - 96.4 fL MCH 28.5 27.1 - 33.3 pg MCHC 30.4 (L) 32.3 - 35.7 g/dL RDW CV 16.2 (H) 11.1 - 14.9 % RDW SD 54.8 (H) 35.7 - 48.1 fL NRBC abs 0.00 0.00 - 0.01 K/cumm Magnesium Collection Time: 09/13/21 9:35 PM Result Value Ref Range Magnesium 2.1 1.4 - 2.5 mg/dL Differential, auto Collection Time: 09/13/21 9:35 PM Result Value Ref Range Neutrophil abs 5.6 1.7 - 6.5 K/cumm Imm gran abs 0.1 0.0 - 0.1 K/cumm Lymphocyte abs 3.0 0.8 - 3.3 K/cumm Monocyte abs 0.7 0.2 - 0.8 K/cumm Eosinophil abs 0.3 0.0 - 0.5 K/cumm Basophil abs 0.0 0.0 - 0.1 K/cumm Neutrophil pct 58.0 % Imm gran pct 0.5 % Lymphocyte pct 31.2 % Monocyte pct 7.3 % Eosinophil pct 2.7 % Basophil pct 0.3 % Basic metabolic panel, serum Collection Time: 09/13/21 9:35 PM Result Value Ref Range Sodium 142 135 - 145 mmol/L Potassium, sr 4.7 3.6 - 5.2 mmol/L Chloride 103 97 - 110 mmol/L CO2 27 22 - 32 mmol/L Anion gap 12 2 - 15 mmol/L BUN 52 (H) 8 - 25 mg/dL Creatinine 1.95 (H) 0.60 - 1.10 mg/dL Glucose 169 70 - 199 mg/dL Calcium 9.7 8.5 - 10.3 mg/dL eGFR Collection Time: 09/13/21 9:35 PM Result Value Ref Range eGFR 27 (L) 90 - 130 mL/min/1.73 m2 POCT glucose Collection Time: 09/13/21 9:46 PM Result Value Ref Range Glucose, POC 165 70 - 199 mg/dL POCT glucose Collection Time: 09/14/21 9:26 AM Result Value Ref Range Glucose, POC 166 70 - 199 mg/dL I have reviewed the laboratory results. Imaging Results: US Abdomen Complete Narrative: EXAMINATION: COMPLETE ABDOMINAL SONOGRAM HISTORY: 70-year-old woman with diabetes mellitus and acute on chronic kidney disease. She is hospitalized with anasarca. Evaluate for cirrhosis. COMPARISON: None FINDINGS: Liver: The liver is normal in size. The echotexture is normal. The echogenicity is normal. There is no surface nodularity. No focal solid lesions are visualized. Gallbladder: The gallbladder is normal in size. There are no stones or sludge within the gallbladder. There is no gallbladder wall thickening. Bile Duct: There is no intrahepatic bile duct dilatation. The diameter of the common duct is 5 mm in the mid segment and 2 mm in the distal segment. Kidneys: There is no hydronephrosis in the visualized portions of the kidneys. Pancreas: Pancreas is not well visualized due to overlying bowel gas. Spleen: The spleen is normal in size. Aorta: The proximal aorta is normal. Inferior vena cava: The proximal IVC is normal. Other Findings: There is a right pleural effusion. Impression: 1. No sonographic findings of cirrhosis. 2. Right pleural effusion. Dr. Bronson (associate professor of radiology) personally participated in sonographic imaging of this patient. ANAY Bernardo also participated in sonographic imaging of this patient. Dictated by: Cristo Bronson MD The radiology attending physician has personally reviewed this study, and had reviewed and/or edited this written report and agrees with it. Electronically signed by: Mayuri Gibson M.D. I have independently reviewed and interpreted CXR 2v 09/07 Minimally increased small right pleural effusion with mild right basilar atelectasis. No left pleural effusion. No pneumothorax. Cardiomediastinal silhouette is stable. Cr 1.91, 1.99, 2.23, 1.99, 1.94, 2.09 Ucx 09/07 insignificant TTE 09/10 Normal LV and RV size and systolic function. LVEF 69%. Normal global LV Myocardial longitudinal function and LV strain pattern. No significant valvular abnormalities noted. Estimated PA systolic pressure 40+RA(5-10) mmHg. Diastolic function is normal for age. LA is normal. Mild concentric LV hypertrophy. Normal Inferior vena cava. Normal aorta. No comparison study. Abd US 09/11 no cirrhosis, no hydronephrosis or hydroureter, +R pleural effusion TC 84, HDL 33 (low), LDL 20, TG 153 (elevated) C3 162, C4 34.7 (WNL), GBM Ab neg, HIV neg ED, ANCA, SPEP, UIFix, HBV core and sAg, sAb pending PRIOR Covid-19 RNA + on 08/13/2021 TTE 01/09/20 Normal left ventricular systolic function with no focal wall motion abnormalities. Normal left ventricular size. Normal left ventricular diastolic function. Ejection fraction is visually estimated at 67 %.The left atrium is normal in size. Normal left atrial pressure based on pulmonary vein inflow. The right atrium is normal in size. Right Ventricular Systolic Pressure could not be estimated due to inadequate visualization of TR jet. Assessment/Plan * Volume overload Assessment & Plan Due to progressive CRF4. Presents with increasing [...] with ongoing clinical improvement. Goal weight 145-150lbs Anemia Assessment & Plan Progressive anemia with Hb 7.1 (dilutional?) from 9.7 over past month ago. 1+ blood in urine, neg cx. Pt denies gross hematuria, epistaxis, melena, hematochezia, hematemesis. Low FeSat, ferritin decreased to 179. Recent normal B12/Folate. Consistent with mixed AOCD/HECTOR. Concerning for occult bleeding, but Hb stable. More likely related to CRF. -Started oral iron supplementation -suspect anemia in s/o progressive CRF. Defer to renal timing of epo agents. -GI made aware 09/09, will order OP EGD/colonoscopy at time of discharge and GI team will facilitateexpedited scheduling -Hb stable around 7.5. -Consented for blood transfusion, goal Hb > 7, give lasix 20 IV if giving blood. Acute renal failure superimposed on stage 4 chronic kidney disease ([facility]) ([facility]) Assessment & Plan known CKD, likely 2/2 dm. Baseline Cr ~1.6, follows with nephrology outpatient. Cr 2.1 on admit w/ FEUrea 27% consistent with pre-renal injury such as cardiorenal syndrome, however normal LV/RV sys/diastolic function. Urinalysis with 1+ blood in setting of possible UTI. Cr improved initially after first dose of diuretics, worsened slightly with holding further diuresis & patient remained volume overloaded. -Ucx insignificant. -resumed IV diuresis 09/10, nonoliguric. -Daily electrolytes and renal function, unable to monitor strict I/O in s/o urinary incontinence, following serial weights. Avoid geller, if possible. - hold nephrotoxic agents/renally dose medications -F/u Cr 1.8 Dementia ([facility]) Assessment & Plan Reported baseline dementia, `AOX2-3. Corroborated by daughter who she lives with. Frequent hospitalizations this year. Suspect med compliance may be an issue. Currently at baseline neurological status -delirium precautions - PT rec 24 supervision with family, OT rec SNF. Spoke with Daughter Honey Gayle [phone]. CM following for dispo planning. [facility] orders placed 09/13. Pt's daughter states she works, but has daughter who could be available during that time. Asking about additional resources for home care. CM notified & additional resources provided. Plan home at [place]. Type 2 diabetes mellitus with diabetic neuropathy, with long-term current use of insulin ([facility]) ([facility]) Assessment & Plan Home regimen lantus 18, lispro 5 TID AC + SSI, had recently had trulicity held due to renal function. Follows with endocrinology outpatient. A1c 8.4. Requiring multiple units of SSI daily. Continue home statin -Increased glargine to 24=>25 units qPM this admit, lispro to 8units TID, continue SSI and ADA diet. Complicated by diabetic neuropathy and nephropathy. Schizoaffective disorder, bipolar type (CMS/HCC) ([facility]) Assessment & Plan Hx of schizoaffective disorder, follows with psych outpatient. Earlier in year had been on daily haldol, weaned off due to increased fatigue. Currently no active psychotic manic symptoms, mood is stable and pleasant, cooperative with exam, testing and management. Continued home risperdal 2mg BID, remains alert. Diabetic neuropathy ([facility]) ([facility]) Assessment & Plan Ongoing symptoms. Previously on lyrica and Likely exacerbated by volume status. Monitor for response with diuresis, improved with less swelling. No longer acute issue. * Maddi Aaron MD - 09/13/2021 4:13 PM CDT Daily Progress Note Division of Hospital Medicine Name: Barbara Chakraborty Today: September 13, 2021 : 1950 Age: 70 y.o. female Admit: 09/06/2021 Bed: [id number] Subjective Chief complaint: Volume overload/anasarca. Acute on CRF4. Proteinuria. 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 Cr 2.1 from 1.6 (b/l) on admit, CXR w/ trace pulm edema, BNP 522. S/p lasix IV c/b slight bump in peak Cr 2.23, improved to 1.94 off diuretics, no assoc hyperkalemia. Diffuse anasarca on exam & IV diuresis resumed 09/10, I&Os with urinary incontinence, but eight down 5kg/72hrs since resuming diuresis. F/u Cr 2.09. S/b renal and recs noted, orders for further serologies/urine studies placed. Less edematous on exam, resolving. Objective Medications: Scheduled: amLODIPine, 10 mg, oral, Daily atorvastatin, 40 mg, oral, Daily famotidine, 20 mg, oral, Daily ferrous sulfate, 65 mg of elemental iron, oral, Daily with breakfast furosemide, 40 mg, intravenous, BID DIURETIC heparin, 5,000 Units, subcutaneous, Q8H SOL insulin glargine, 25 Units, subcutaneous, Nightly insulin lispro, 0-10 Units, subcutaneous, TID with meals insulin lispro, 0-5 Units, subcutaneous, Nightly insulin lispro, 8 Units, subcutaneous, TID with meals polyethylene glycol, 17 g, oral, Daily pregabalin, 150 mg, oral, Daily risperiDONE, 2 mg, oral, Nightly Infusions: PRN: ??? acetaminophen ??? capsaicin ??? dextrose OR dextrose ??? glucagon Vitals: 24hr Min/Max: Temp Min: 36.6 ??C (97.9 ??F) Max: 36.9 ??C (98.4 ??F) Pulse Min: 72 Max: 78 BP Min: 107/50 Max: 128/56 Resp Min: 16 Max: 18 SpO2 Min: 94 % Max: 96 % Most Recent: Vitals: 09/13/21 0400 BP: 116/52 Pulse: 75 Resp: 18 Temp: 36.9 ??C (98.4 ??F) SpO2: 94% Intake/Output Summary (Last 24 hours) at 09/13/2021 0800 Last data filed at 09/12/2021 2000 Gross per 24 hour Intake 250 ml Output 550 ml Net -300 ml Physical Exam Vitals and nursing note reviewed. Constitutional: General: She is not in acute distress. Cognitive dysfunction, pleasantly agreeable. No behavioral issues. Appearance: She is obese. She is not ill-appearing or diaphoretic. Comments: Diffuse anasarca, sitting in chair, alert, conversational. HENT: Head: Normocephalic and atraumatic. Right Ear: External ear normal. Left Ear: External ear normal. Nose: Nose normal. No congestion or rhinorrhea. Mouth/Throat: Mouth: Mucous membranes are moist. Pharynx: Oropharynx is clear. No oropharyngeal exudate or posterior oropharyngeal erythema. Eyes: General: No scleral icterus. Extraocular Movements: Extraocular movements intact. Conjunctiva/sclera: Conjunctivae normal. Pupils: Pupils are equal, round, and reactive to light. Neck: Comments: Chest and neck with edema. Cardiovascular: Rate and Rhythm: Normal rate and regular rhythm. Pulses: Normal pulses. Heart sounds: No murmur heard. No friction rub. No gallop. Pulmonary: Effort: Pulmonary effort is normal. No respiratory distress. Breath sounds: No stridor. No wheezing, rhonchi or rales. Comments: Decreased BS at bases bilaterally, shallow inpirations. No wheezing or rales appreciated. Chest: Chest wall: No tenderness. Abdominal: General: Bowel sounds are normal. There is no distension. Palpations: There is no mass. Tenderness: There is no abdominal tenderness. Hernia: No hernia is present. Comments: Obese, protuberant. No fluid wave appreciated. Musculoskeletal: General: Swelling markedly improved Cervical back: Normal range of motion and neck supple. Right lower leg: Edema present. Left lower leg: Edema present. Comments: RESOLVED pitting edema of U/L extremities. 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 Skin: General: Skin is warm and dry. Capillary Refill: Capillary refill takes less than 2 seconds. Coloration: Skin is not jaundiced. Findings: No rash. Neurological: General: No focal deficit present. Mental Status: She is alert. Cranial Nerves: No cranial nerve deficit. Sensory: Sensory deficit present. Comments: Alert, oriented, stocking glove distribution of neuropathy on hands, feet bilaterally. Psychiatric: Mood and Affect: Mood normal. Behavior: Behavior normal. Thought Content: Thought content normal. Lab/Diagnostic Review: Recent Results (from the past 36 hour(s)) POCT glucose Collection Time: 09/11/21 8:06 PM Result Value Ref Range Glucose, POC 239 (H) 70 - 199 mg/dL CBC with auto differential Collection Time: 09/11/21 10:35 PM Result Value Ref Range WBC 10.0 (H) 3.8 - 9.9 K/cumm Hgb 7.5 (L) 11.9 - 15.5 g/dL Hct 23.5 (L) 35.6 - 45.5 % Plt 272 150 - 400 K/cumm MPV 11.3 9.1 - 12.3 fL RBC 2.53 (L) 3.90 - 5.20 M/cumm MCV 92.9 81.3 - 96.4 fL MCH 29.6 27.1 - 33.3 pg MCHC 31.9 (L) 32.3 - 35.7 g/dL RDW CV 16.2 (H) 11.1 - 14.9 % RDW SD 54.1 (H) 35.7 - 48.1 fL NRBC abs 0.03 (H) 0.00 - 0.01 K/cumm Basic metabolic panel Collection Time: 09/11/21 10:35 PM Result Value Ref Range Sodium 143 135 - 145 mmol/L Potassium, pl 4.2 3.3 - 4.9 mmol/L Chloride 104 97 - 110 mmol/L CO2 27 22 - 32 mmol/L Anion gap 12 2 - 15 mmol/L BUN 48 (H) 8 - 25 mg/dL Creatinine 1.98 (H) 0.60 - 1.10 mg/dL Glucose 173 70 - 199 mg/dL Calcium 9.2 8.5 - 10.3 mg/dL Magnesium Collection Time: 09/11/21 10:35 PM Result Value Ref Range Magnesium 1.9 1.4 - 2.5 mg/dL Differential, auto Collection Time: 09/11/21 10:35 PM Result Value Ref Range Neutrophil abs 6.1 1.7 - 6.5 K/cumm Imm gran abs 0.1 0.0 - 0.1 K/cumm Lymphocyte abs 2.8 0.8 - 3.3 K/cumm Monocyte abs 0.7 0.2 - 0.8 K/cumm Eosinophil abs 0.2 0.0 - 0.5 K/cumm Basophil abs 0.0 0.0 - 0.1 K/cumm Neutrophil pct 61.1 % Imm gran pct 0.6 % Lymphocyte pct 28.3 % Monocyte pct 7.3 % Eosinophil pct 2.3 % Basophil pct 0.4 % eGFR Collection Time: 09/11/21 10:35 PM Result Value Ref Range eGFR 27 (L) 90 - 130 mL/min/1.73 m2 POCT glucose Collection Time: 09/12/21 8:02 AM Result Value Ref Range Glucose, POC 148 70 - 199 mg/dL POCT glucose Collection Time: 09/12/21 1:12 PM Result Value Ref Range Glucose, POC 180 70 - 199 mg/dL POCT glucose Collection Time: 09/12/21 4:32 PM Result Value Ref Range Glucose, POC 188 70 - 199 mg/dL CBC with auto differential Collection Time: 09/12/21 8:59 PM Result Value Ref Range WBC 10.3 (H) 3.8 - 9.9 K/cumm Hgb 7.5 (L) 11.9 - 15.5 g/dL Hct 24.5 (L) 35.6 - 45.5 % Plt 305 150 - 400 K/cumm MPV 11.6 9.1 - 12.3 fL RBC 2.61 (L) 3.90 - 5.20 M/cumm MCV 93.9 81.3 - 96.4 fL MCH 28.7 27.1 - 33.3 pg MCHC 30.6 (L) 32.3 - 35.7 g/dL RDW CV 16.0 (H) 11.1 - 14.9 % RDW SD 54.4 (H) 35.7 - 48.1 fL NRBC abs 0.02 (H) 0.00 - 0.01 K/cumm Magnesium Collection Time: 09/12/21 8:59 PM Result Value Ref Range Magnesium 1.9 1.4 - 2.5 mg/dL Differential, auto Collection Time: 09/12/21 8:59 PM Result Value Ref Range Neutrophil abs 6.6 (H) 1.7 - 6.5 K/cumm Imm gran abs 0.1 0.0 - 0.1 K/cumm Lymphocyte abs 2.7 0.8 - 3.3 K/cumm Monocyte abs 0.7 0.2 - 0.8 K/cumm Eosinophil abs 0.2 0.0 - 0.5 K/cumm Basophil abs 0.0 0.0 - 0.1 K/cumm Neutrophil pct 63.5 % Imm gran pct 0.7 % Lymphocyte pct 26.4 % Monocyte pct 7.0 % Eosinophil pct 2.0 % Basophil pct 0.4 % Basic metabolic panel, serum Collection Time: 09/12/21 8:59 PM Result Value Ref Range Sodium 141 135 - 145 mmol/L Potassium, sr 4.6 3.6 - 5.2 mmol/L Chloride 104 97 - 110 mmol/L CO2 25 22 - 32 mmol/L Anion gap 12 2 - 15 mmol/L BUN 47 (H) 8 - 25 mg/dL Creatinine 2.09 (H) 0.60 - 1.10 mg/dL Glucose 199 70 - 199 mg/dL Calcium 9.1 8.5 - 10.3 mg/dL eGFR Collection Time: 09/12/21 8:59 PM Result Value Ref Range eGFR 25 (L) 90 - 130 mL/min/1.73 m2 POCT glucose Collection Time: 09/12/21 9:03 PM Result Value Ref Range Glucose, POC 216 (H) 70 - 199 mg/dL I have reviewed the laboratory results. Imaging Results: US Abdomen Complete Narrative: EXAMINATION: COMPLETE ABDOMINAL SONOGRAM HISTORY: 70-year-old woman with diabetes mellitus and acute on chronic kidney disease. She is hospitalized with anasarca. Evaluate for cirrhosis. COMPARISON: None FINDINGS: Liver: The liver is normal in size. The echotexture is normal. The echogenicity is normal. There is no surface nodularity. No focal solid lesions are visualized. Gallbladder: The gallbladder is normal in size. There are no stones or sludge within the gallbladder. There is no gallbladder wall thickening. Bile Duct: There is no intrahepatic bile duct dilatation. The diameter of the common duct is 5 mm in the mid segment and 2 mm in the distal segment. Kidneys: There is no hydronephrosis in the visualized portions of the kidneys. Pancreas: Pancreas is not well visualized due to overlying bowel gas. Spleen: The spleen is normal in size. Aorta: The proximal aorta is normal. Inferior vena cava: The proximal IVC is normal. Other Findings: There is a right pleural effusion. Impression: 1. No sonographic findings of cirrhosis. 2. Right pleural effusion. Dr. Bronson (associate professor of radiology) personally participated in sonographic imaging of this patient. ANAY Bernardo also participated in sonographic imaging of this patient. Dictated by: Cristo Bronson MD The radiology attending physician has personally reviewed this study, and had reviewed and/or edited this written report and agrees with it. Electronically signed by: Mayuri Gibson M.D. I have independently reviewed and interpreted CXR 2v 09/07 Minimally increased small right pleural effusion with mild right basilar atelectasis. No left pleural effusion. No pneumothorax. Cardiomediastinal silhouette is stable. Cr 1.91, 1.99, 2.23, 1.99, 1.94, 2.09 Ucx 09/07 insignificant TTE 09/10 Normal LV and RV size and systolic function. LVEF 69%. Normal global LV Myocardial longitudinal function and LV strain pattern. No significant valvular abnormalities noted. Estimated PA systolic pressure 40+RA(5-10) mmHg. Diastolic function is normal for age. LA is normal. Mild concentric LV hypertrophy. Normal Inferior vena cava. Normal aorta. No comparison study. Abd US 09/11 no cirrhosis, no hydronephrosis or hydroureter, +R pleural effusion TC 84, HDL 33 (low), LDL 20, TG 153 (elevated) PRIOR Covid-19 RNA + on 08/13/2021 TTE 01/09/20 Normal left ventricular systolic function with no focal wall motion abnormalities. Normal left ventricular size. Normal left ventricular diastolic function. Ejection fraction is visually estimated at 67 %.The left atrium is normal in size. Normal left atrial pressure based on pulmonary vein inflow. The right atrium is normal in size. Right Ventricular Systolic Pressure could not be estimated due to inadequate visualization of TR jet. Assessment/Plan * Volume overload Assessment & Plan Due to progressive CRF4. Presents with increasing [...] - renal consulted regarding volume management, possible financial compliance manager dialysis planning, expedite OP f/u. Serologies and urine studies ordered. -Added metolazone 2.5mg per renal. -Anticipate likely transition to PO agents later today with clinical improvement. Anemia Assessment & Plan Progressive anemia with Hb 7.1 (dilutional?) from 9.7 over past month ago. 1+ blood in urine, neg cx. Pt denies gross hematuria, epistaxis, melena, hematochezia, hematemesis. Low FeSat, ferritin decreased to 179. Recent normal B12/Folate. Consistent with mixed AOCD/HECTOR. Concerning for occult bleeding, but Hb stable. More likely related to CRF. -Started oral iron supplementation -suspect anemia in s/o progressive CRF. Defer to renal timing of epo agents. -GI made aware 09/09, will order OP EGD/colonoscopy at time of discharge and GI team will facilitateexpedited scheduling -Hb trending up with diuresis, around 10 -Consented for blood transfusion, goal Hb > 7, give lasix 20 IV if giving blood Acute renal failure superimposed on stage 4 chronic kidney disease (CMS/HCC) ([facility]) Assessment & Plan known CKD, likely 2/2 dm. Baseline Cr ~1.6, follows with nephrology outpatient. Cr 2.1 on admit w/ FEUrea 27% consistent with pre-renal injury such as cardiorenal syndrome, however normal LV/RV sys/diastolic function. Urinalysis with 1+ blood in setting of possible UTI. Cr improved initially after first dose of diuretics, worsened slightly with holding further diuresis & patient remained volume overloaded. -Ucx insignif -resumed IV diuresis 09/10 -Daily electrolytes and renal function, unable to monitor strict I/O in s/o urinary incontinence, following serial weights. Avoid geller, if possible. - hold nephrotoxic agents/renally dose medications Dementia (HCC) Assessment & Plan Reported baseline dementia, `AOX2-3. Corroborated by daughter who she lives with. Frequent hospitalizations this year. Suspect med compliance may be an issue. Currently at baseline neurological status -delirium precautions - PT OT Daily underway, PT rec 24 supervision with family, OT rec SNF. Spoke with Daughter Honey Gayle [phone]. CM following for dispo planning. [facility] orders placed 09/13. Pt's daughter states she works, but has daughter who could be available during that time. Asking about additional resources for home care. CM notified. Type 2 diabetes mellitus with diabetic neuropathy, with long-term current use of insulin (CMS/HCC) ([facility]) Assessment & Plan Home regimen lantus 18, lispro 5 TID AC + SSI, had recently had trulicity held due to renal function. Follows with endocrinology outpatient. A1c 8.4. Requiring multiple units of SSI daily. -Continue home statin -Increased glargine to 24=>25 units qPM, lispro to 8units TID, continue SSI and ADA diet. Complicated by diabetic neuropathy and nephropathy. Schizoaffective disorder, bipolar type (CMS/HCC) ([facility]) Assessment & Plan Hx of schizoaffective disorder, follows with psych outpatient. Earlier in year had been on daily haldol, weaned off due to increased fatigue. - currently no active psychotic manic symptoms, mood is stable and pleasant, cooperative with exam,testing and management. - continue home risperdal 2mg BID, remains alert. Diabetic neuropathy (CMS/HCC) ([facility]) Assessment & Plan Ongoing symptoms. Previously on lyrica and Likely exacerbated by volume status. Monitor for response with diuresis, improved with less swelling. * Caitlyn Fagan, RD - 09/13/2021 12:25 PM CDT Nutrition Assessment Reason for Assessment: Follow Up Encounter Date: 09/13/21 12:26 PM Patient is a 70 y.o. female with chief complaint of STEFANO and volume overload. LOS is 6 days. HPI: Patient admitted with STEFANO and volume overload. PMH includes: dementia, schizoaffective disorder and DM2. ? Objective Past Medical History: Diagnosis Date ??? Arthritis ??? Depression ??? Diabetic neuropathy (CMS/HCC) ([facility]) ??? Hyperlipidemia ??? Hypertension ??? Schizophrenia ([facility]) ??? Type 2 diabetes mellitus (HCC) Past Surgical History: Procedure Laterality Date ??? SECTION Right right foot ??? TOE AMPUTATION Right 01/06/2020 4th toe amp/ foot debridement/ Dr. Anat Pelayo Social History Tobacco Use ??? Smoking status: Never Smoker ??? Smokeless tobacco: Never Used Substance Use Topics ??? Alcohol use: Not Currently Family History Problem Relation Age of Onset ??? Stomach cancer Father Anthropometrics: Wt Readings from Last 3 Encounters: 09/13/21 72.9 kg (160 lb 11.2 oz) 09/06/21 73.3 kg (161 lb 8 oz) 09/02/21 70.5 kg (155 lb 8 oz) Anthropometrics Weight: 72.9 kg (160 lb 11.2 oz) Admission Weight : 73.4 kg Weight Change: -0.80 kg (-1.78 lbs) IBW/kg (Calculated) : 49.9 kg Height: 157.5 cm (5' 2 ) Weight in (lb) to have BMI = 25: 136.4 BMI (Calculated): 29.4 Nutrition Needs Calculations: Calculated Energy Needs Using Equations Weight: 72.9 kg (160 lb 11.2 oz) Height: 157.5 cm (5' 2 ) Estimated Protein Needs Type of Weight Used for Estimated Protein : [place] Protein Needs Based on g/k.2 Total Protein Estimated Needs (gm): 59.88 Kcal/kg Type of Weight Used for Estimated Kcals: [place] Kcal/k Total Kcal/kg Estimated Needs : 1497 Vital Signs: BP: 153/63 Temp: 36.5 ??C (97.7 ??F) Pulse: 81 Resp: 18 SpO2: 100 % Medications: Scheduled Meds: atorvastatin, 40 mg, oral, Daily carvediloL, 12.5 mg, oral, BID with meals (bkfst, dinner) famotidine, 20 mg, oral, Daily ferrous sulfate, 65 mg of elemental iron, oral, Daily with breakfast furosemide, 40 mg, intravenous, BID DIURETIC heparin, 5,000 Units, subcutaneous, Q8H SOL insulin glargine, 25 Units, subcutaneous, Nightly insulin lispro, 0-10 Units, subcutaneous, TID with meals insulin lispro, 0-5 Units, subcutaneous, Nightly insulin lispro, 8 Units, subcutaneous, TID with meals polyethylene glycol, 17 g, oral, Daily pregabalin, 150 mg, oral, Daily risperiDONE, 2 mg, oral, Nightly Continuous Infusions: PRN Meds: ??? acetaminophen ??? capsaicin ??? dextrose OR dextrose ??? glucagon Lab Review: Sodium Date Value Ref Range Status 09/12/2021 141 135 - 145 mmol/L Final Potassium, pl Date Value Ref Range Status 09/11/2021 4.2 3.3 - 4.9 mmol/L Final BUN Date Value Ref Range Status 09/12/2021 47 (H) 8 - 25 mg/dL Final Creatinine Date Value Ref Range Status 09/12/2021 2.09 (H) 0.60 - 1.10 mg/dL Final Albumin Date Value Ref Range Status 09/12/2021 3.2 (L) 3.5 - 5.0 g/dL Final Magnesium Date Value Ref Range Status 09/12/2021 1.9 1.4 - 2.5 mg/dL Final Calcium Date Value Ref Range Status 09/12/2021 9.1 8.5 - 10.3 mg/dL Final HDL Date Value Ref Range Status 09/10/2021 [...] Interpretive Data was last revised on 2018. Lab Results Component Value Date HGBA1C 8.4 (H) 09/07/2021 HDL 33 (L) 09/10/2021 LDLCALC 20 09/10/2021 CHOL 84 09/10/2021 TRIG 153 (H) 09/10/2021 Nursing Assessment: Intake/Output Summary (Last 24 hours) at 09/13/2021 1226 Last data filed at 09/12/20211999 Gross per 24 hour Intake -- Output 550 ml Net -550 ml Gastrointestinal Gastrointestinal (WDL): Within Defined Limits Abdomen Inspection: Soft, Nondistended Bowel Sounds (All Quadrants): Present Palpation: Nontender Last BM Date: 09/11/21 (x2) Passing Flatus: Yes GI Symptoms: None Last BM Date: 09/11/21 (x2) Timoteo Scale Score: 20 Skin Integrity: Intact Edema: Moderate pitting, indentation subsides rapidly Dietary Orders (From admission, onward) Start Ordered 09/07/21 1300 Oral Nutrition Supplements Select Supplement: Glucerna Shake - Fox, VARY/multiple Flavor 3 times daily Question Answer Comment Select Supplement: Glucerna Shake - Fox Select Supplement: VARY/multiple Flavor 09/07/21 1032 09/07/21 0108 Adult Diet Restricted; 2 GM Sodium; Consistent Carbohydrate Diet effective now Question Answer Comment ([facility]) Diet type Restricted Fat / Sodium Restriction: 2 GM Sodium Diabetic: Consistent Carbohydrate 09/07/21 0107 Impression: Pt screened for f/u on PO intake. Pt reports improved appetite and intake. States that she has been eating meals TID. Drinking Glucerna TID w/ each meal. Pt w/ breakfast tray at bedside. Pt ate 100% of eggs, hash browns, turkey sausage, toast w/ butter, and Glucerna. NUTRITION DIAGNOSIS Nutrition Diagnosis 1: Inadequate oral intake Related to: Loss of appetite Evidenced by: Patient interview INTERVENTION Discussed the importance of adequate calories and protein during admission to prevent unintended wtloss and to maintain lean body mass. Encouraged pt to continue adequate PO intakes. Continue Glucerna TID. RD following. GOALS / MONITORING: Goals: Adequate nutrition to meet estimated needs by next assessment Interventions: Encouragement, Medical food supplement Monitoring and Evaluation: Appetite, PO intake, Plan of care Caitlyn Fagan RD, LD Cell: Weekend On-Call: [phone] * Maddi Aaron MD - 09/12/2021 3:41 PM CDT Daily Progress Note Division of Hospital Medicine Name: Barbara Chakraborty Today: September 12, 2021 : 1950 Age: 70 y.o. female Admit: 09/06/2021 Bed: [id number] Subjective Chief complaint: Volume overload/anasarca. Acute on CRF4. Proteinuria. 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 Cr 2.1 from 1.6 (b/l) on admit, CXR w/ trace pulm edema, BNP 522. S/p lasix IV c/b slight bump in peak Cr 2.23, improved to 1.94 off diuretics, no assoc hyperkalemia. Diffuse anasarca on exam & IV diuresis resumed 09/10, I&Os with urinary incontinence, but eight down 4kg/48hrs since resuming diuresis. TTE normal, US neg for hydro/cirrhosis but +R pleural effusion. On RA. Appears less swollen. Oxygenation stable on RA. No SOB, CP. Able to move fingers and wrists better. Renal consulted for additional management. Objective Medications: Scheduled: amLODIPine, 10 mg, oral, Daily atorvastatin, 40 mg, oral, Daily famotidine, 20 mg, oral, Daily ferrous sulfate, 65 mg of elemental iron, oral, Daily with breakfast furosemide, 40 mg, intravenous, BID DIURETIC heparin, 5,000 Units, subcutaneous, Q8H SOL insulin glargine, 25 Units, subcutaneous, Nightly insulin lispro, 0-10 Units, subcutaneous, TID with meals insulin lispro, 0-5 Units, subcutaneous, Nightly insulin lispro, 8 Units, subcutaneous, TID with meals polyethylene glycol, 17 g, oral, Daily pregabalin, 150 mg, oral, Daily risperiDONE, 2 mg, oral, Nightly Infusions: PRN: ??? acetaminophen ??? capsaicin ??? dextrose OR dextrose ??? glucagon Vitals: 24hr Min/Max: Temp Min: 36.7 ??C (98 ??F) Max: 37.1 ??C (98.7 ??F) Pulse Min: 74 Max: 87 BP Min: 100/50 Max: 140/54 Resp Min: 16 Max: 16 SpO2 Min: 93 % Max: 97 % Most Recent: Vitals: 09/12/21 0505 BP: 100/50 Pulse: 77 Resp: 16 Temp: 37.1 ??C (98.7 ??F) SpO2: Intake/Output Summary (Last 24 hours) at 09/12/2021 0906 Last data filed at 09/11/2021 1515 Gross per 24 hour Intake 300 ml Output 400 ml Net -100 ml Physical Exam Vitals and nursing note reviewed. Constitutional: General: She is not in acute distress. Appearance: She is obese. She is not ill-appearing or diaphoretic. Comments: Diffuse anasarca, sitting in chair, alert, conversational. HENT: Head: Normocephalic and atraumatic. Right Ear: External ear normal. Left Ear: External ear normal. Nose: Nose normal. No congestion or rhinorrhea. Mouth/Throat: Mouth: Mucous membranes are moist. Pharynx: Oropharynx is clear. No oropharyngeal exudate or posterior oropharyngeal erythema. Eyes: General: No scleral icterus. Extraocular Movements: Extraocular movements intact. Conjunctiva/sclera: Conjunctivae normal. Pupils: Pupils are equal, round, and reactive to light. Neck: Comments: Chest and neck with edema. Cardiovascular: Rate and Rhythm: Normal rate and regular rhythm. Pulses: Normal pulses. Heart sounds: No murmur heard. No friction rub. No gallop. Pulmonary: Effort: Pulmonary effort is normal. No respiratory distress. Breath sounds: No stridor. No wheezing, rhonchi or rales. Comments: Decreased BS at bases bilaterally, shallow inpirations. No wheezing or rales appreciated. Chest: Chest wall: No tenderness. Abdominal: General: Bowel sounds are normal. There is no distension. Palpations: There is no mass. Tenderness: There is no abdominal tenderness. Hernia: No hernia is present. Comments: Obese, protuberant. No fluid wave appreciated. Musculoskeletal: General: Swelling present. Cervical back: Normal range of motion and neck supple. Right lower leg: Edema present. Left lower leg: Edema present. Comments: Diffuse pitting edema on U/L extremities. 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 Skin: General: Skin is warm and dry. Capillary Refill: Capillary refill takes less than 2 seconds. Coloration: Skin is not jaundiced. Findings: No rash. Neurological: General: No focal deficit present. Mental Status: She is alert. Cranial Nerves: No cranial nerve deficit. Sensory: Sensory deficit present. Comments: Alert, oriented, stocking glove distribution of neuropathy on hands, feet bilaterally. Psychiatric: Mood and Affect: Mood normal. Behavior: Behavior normal. Thought Content: Thought content normal. Lab/Diagnostic Review: Recent Results (from the past 36 hour(s)) CBC with auto differential Collection Time: 09/10/21 9:10 PM Result Value Ref Range WBC 12.2 (H) 3.8 - 9.9 K/cumm Hgb 7.6 (L) 11.9 - 15.5 g/dL Hct 24.5 (L) 35.6 - 45.5 % Plt 299 150 - 400 K/cumm MPV 11.5 9.1 - 12.3 fL RBC 2.62 (L) 3.90 - 5.20 M/cumm MCV 93.5 81.3 - 96.4 fL MCH 29.0 27.1 - 33.3 pg MCHC 31.0 (L) 32.3 - 35.7 g/dL RDW CV 15.9 (H) 11.1 - 14.9 % RDW SD 53.3 (H) 35.7 - 48.1 fL NRBC abs 0.02 (H) 0.00 - 0.01 K/cumm Basic metabolic panel Collection Time: 09/10/21 9:10 PM Result Value Ref Range Sodium 142 135 - 145 mmol/L Potassium, pl 4.2 3.3 - 4.9 mmol/L Chloride 105 97 - 110 mmol/L CO2 26 22 - 32 mmol/L Anion gap 11 2 - 15 mmol/L BUN 42 (H) 8 - 25 mg/dL Creatinine 1.88 (H) 0.60 - 1.10 mg/dL Glucose 223 (H) 70 - 199 mg/dL Calcium 9.4 8.5 - 10.3 mg/dL Magnesium Collection Time: 09/10/21 9:10 PM Result Value Ref Range Magnesium 1.9 1.4 - 2.5 mg/dL Lipid panel Collection Time: 09/10/21 9:10 PM Result Value Ref Range Cholesterol 84 30 - 199 mg/dL Triglycerides 153 (H) <=149 mg/dL HDL 33 (L) >=40 mg/dL LDL, calculated 20 <=129 mg/dL Non-HDL Cholesterol 51 mg/dL Chol/HDL ratio 3 Pro B-type natriuretic peptide Collection Time: 09/10/21 9:10 PM Result Value Ref Range NT-proBNP 146 <=300 pg/mL Differential, auto Collection Time: 09/10/21 9:10 PM Result Value Ref Range Neutrophil abs 8.2 (H) 1.7 - 6.5 K/cumm Imm gran abs 0.1 0.0 - 0.1 K/cumm Lymphocyte abs 2.8 0.8 - 3.3 K/cumm Monocyte abs 0.8 0.2 - 0.8 K/cumm Eosinophil abs 0.3 0.0 - 0.5 K/cumm Basophil abs 0.0 0.0 - 0.1 K/cumm Neutrophil pct 67.4 % Imm gran pct 0.6 % Lymphocyte pct 23.0 % Monocyte pct 6.6 % Eosinophil pct 2.1 % Basophil pct 0.3 % eGFR Collection Time: 09/10/21 9:10 PM Result Value Ref Range eGFR 28 (L) 90 - 130 mL/min/1.73 m2 POCT glucose Collection Time: 09/10/21 9:44 PM Result Value Ref Range Glucose, POC 203 (H) 70 - 199 mg/dL POCT glucose Collection Time: 09/11/21 10:21 AM Result Value Ref Range Glucose, POC 204 (H) 70 - 199 mg/dL POCT glucose Collection Time: 09/11/21 12:58 PM Result Value Ref Range Glucose, POC 215 (H) 70 - 199 mg/dL POCT glucose Collection Time: 09/11/21 5:02 PM Result Value Ref Range Glucose, POC 218 (H) 70 - 199 mg/dL POCT glucose Collection Time: 09/11/21 8:06 PM Result Value Ref Range Glucose, POC 239 (H) 70 - 199 mg/dL CBC with auto differential Collection Time: 09/11/21 10:35 PM Result Value Ref Range WBC 10.0 (H) 3.8 - 9.9 K/cumm Hgb 7.5 (L) 11.9 - 15.5 g/dL Hct 23.5 (L) 35.6 - 45.5 % Plt 272 150 - 400 K/cumm MPV 11.3 9.1 - 12.3 fL RBC 2.53 (L) 3.90 - 5.20 M/cumm MCV 92.9 81.3 - 96.4 fL MCH 29.6 27.1 - 33.3 pg MCHC 31.9 (L) 32.3 - 35.7 g/dL RDW CV 16.2 (H) 11.1 - 14.9 % RDW SD 54.1 (H) 35.7 - 48.1 fL NRBC abs 0.03 (H) 0.00 - 0.01 K/cumm Basic metabolic panel Collection Time: 09/11/21 10:35 PM Result Value Ref Range Sodium 143 135 - 145 mmol/L Potassium, pl 4.2 3.3 - 4.9 mmol/L Chloride 104 97 - 110 mmol/L CO2 27 22 - 32 mmol/L Anion gap 12 2 - 15 mmol/L BUN 48 (H) 8 - 25 mg/dL Creatinine 1.98 (H) 0.60 - 1.10 mg/dL Glucose 173 70 - 199 mg/dL Calcium 9.2 8.5 - 10.3 mg/dL Magnesium Collection Time: 09/11/21 10:35 PM Result Value Ref Range Magnesium 1.9 1.4 - 2.5 mg/dL Differential, auto Collection Time: 09/11/21 10:35 PM Result Value Ref Range Neutrophil abs 6.1 1.7 - 6.5 K/cumm Imm gran abs 0.1 0.0 - 0.1 K/cumm Lymphocyte abs 2.8 0.8 - 3.3 K/cumm Monocyte abs 0.7 0.2 - 0.8 K/cumm Eosinophil abs 0.2 0.0 - 0.5 K/cumm Basophil abs 0.0 0.0 - 0.1 K/cumm Neutrophil pct 61.1 % Imm gran pct 0.6 % Lymphocyte pct 28.3 % Monocyte pct 7.3 % Eosinophil pct 2.3 % Basophil pct 0.4 % eGFR Collection Time: 09/11/21 10:35 PM Result Value Ref Range eGFR 27 (L) 90 - 130 mL/min/1.73 m2 POCT glucose Collection Time: 09/12/21 8:02 AM Result Value Ref Range Glucose, POC 148 70 - 199 mg/dL I have reviewed the laboratory results. Imaging Results: US Abdomen Complete Narrative: EXAMINATION: COMPLETE ABDOMINAL SONOGRAM HISTORY: 70-year-old woman with diabetes mellitus and acute on chronic kidney disease. She is hospitalized with anasarca. Evaluate for cirrhosis. COMPARISON: None FINDINGS: Liver: The liver is normal in size. The echotexture is normal. The echogenicity is normal. There is no surface nodularity. No focal solid lesions are visualized. Gallbladder: The gallbladder is normal in size. There are no stones or sludge within the gallbladder. There is no gallbladder wall thickening. Bile Duct: There is no intrahepatic bile duct dilatation. The diameter of the common duct is 5 mm in the mid segment and 2 mm in the distal segment. Kidneys: There is no hydronephrosis in the visualized portions of the kidneys. Pancreas: Pancreas is not well visualized due to overlying bowel gas. Spleen: The spleen is normal in size. Aorta: The proximal aorta is normal. Inferior vena cava: The proximal IVC is normal. Other Findings: There is a right pleural effusion. Impression: 1. No sonographic findings of cirrhosis. 2. Right pleural effusion. Dr. Bronson (associate professor of radiology) personally participated in sonographic imaging of this patient. ANAY Bernardo also participated in sonographic imaging of this patient. Dictated by: Cristo Bronson MD The radiology attending physician has personally reviewed this study, and had reviewed and/or edited this written report and agrees with it. Electronically signed by: Mayuri Gibson M.D. I have independently reviewed and interpreted Cr 1.91, 1.99, 2.23, 1.99, 1.94 Ucx 09/07 insignificant TTE 09/10 Normal LV and RV size and systolic function. LVEF 69%. Normal global LV Myocardial longitudinal function and LV strain pattern. No significant valvular abnormalities noted. Estimated PA systolic pressure 40+RA(5-10) mmHg. Diastolic function is normal for age. LA is normal. Mild concentric LV hypertrophy. Normal Inferior vena cava. Normal aorta. No comparison study. Abd US 09/11 no cirrhosis, no hydronephrosis or hydroureter, +R pleural effusion TC 84, HDL 33 (low), LDL 20, TG 153 (elevated) PRIOR Covid-19 RNA + on 08/13/2021 TTE 01/09/20 Normal left ventricular systolic function with no focal wall motion abnormalities. Normal left ventricular size. Normal left ventricular diastolic function. Ejection fraction is visually estimated at 67 %.The left atrium is normal in size. Normal left atrial pressure based on pulmonary vein inflow. The right atrium is normal in size. Right Ventricular Systolic Pressure could not be estimated due to inadequate visualization of TR jet. Assessment/Plan * Volume overload Assessment & Plan Due to progressive CRF4. Presents with increasing [...] - renal consulted regarding volume management, possible financial compliance manager dialysis planning, expedite OP f/u. Anemia Assessment & Plan Progressive anemia with Hb 7.1 (dilutional?) from 9.7 over past month ago. 1+ blood in urine, neg cx. Pt denies gross hematuria, epistaxis, melena, hematochezia, hematemesis. Low FeSat, ferritin decreased to 179. Recent normal B12/Folate. Concerning for occult bleeding, but Hb stable. More likely related to CRF. -Started oral iron supplementation -suspect anemia in s/o progressive CRF. Defer to renal timing of epo agents. -GI made aware 09/09, will order OP EGD/colonoscopy at time of discharge and GI team will facilitateexpedited scheduling -Hb trending up with diuresis, around 10 -Consented for blood transfusion, goal Hb > 7, give lasix 20 IV if giving blood Acute renal failure superimposed on stage 4 chronic kidney disease ([facility]) ([facility]) Assessment & Plan known CKD, likely 2/2 dm. Baseline Cr ~1.6, follows with nephrology outpatient. Cr 2.1 on admit w/ FEUrea 27% consistent with pre-renal injury such as cardiorenal syndrome, however normal LV/RV sys/diastolic function. Urinalysis with 1+ blood in setting of possible UTI. Cr improved initially after first dose of diuretics, worsened slightly with holding further diuresis & patient remained volume overloaded. -Ucx insignif -resumed IV diuresis 09/10 -Daily elecgtrolytes and renal function, unable to monitor strict I/O in s/o urinary incontinence, following serial weights. Avoid geller, if possible. - hold nephrotoxic agents/renally dose medications Dementia ([facility]) Assessment & Plan Reported baseline dementia, `AOX2-3. Corroborated by daughter who she lives with. Frequent hospitalizations this year. Suspect med compliance may be an issue. Currently at baseline neurological status -delirium precautions - PT OT Daily underway, PT rec 24 supervision with family, OT rec SNF. Daughter Honey Gayle [phone]. CM following for dispo planning. Type 2 diabetes mellitus with diabetic neuropathy, with long-term current use of insulin ([facility]) ([facility]) Assessment & Plan Home regimen lantus 18, lispro 5 TID AC + SSI, had recently had trulicity held due to renal function. Follows with endocrinology outpatient. A1c 8.4. Requiring multiple units of SSI daily. -Continue home statin -Increased glargine to 24=>25 units qPM, lispro to 8units TID, continue SSI and ADA diet. Complicated by diabetic neuropathy and nephropathy. Schizoaffective disorder, bipolar type ([facility]) ([facility]) Assessment & Plan Hx of schizoaffective disorder, follows with psych outpatient. Earlier in year had been on daily haldol, weaned off due to increased fatigue. - currently no active psychotic manic symptoms, mood is stable and pleasant, cooperative with exam,testing and management. - continue home risperdal 2mg BID, remains alert. Diabetic neuropathy ([facility]) ([facility]) Assessment & Plan Ongoing symptoms. Previously on lyrica and Likely exacerbated by volume status. Monitor for response with diuresis, improved with less swelling. * Maddi Aaron MD - 09/11/2021 2:54 PM CDT Daily Progress Note Division of Hospital Medicine Name: Barbara Chakraborty Today: September 11, 2021 : 1950 Age: 70 y.o. female Admit: 09/06/2021 Bed: [id number] Subjective Chief complaint: Volume overload. Acute on CRF4. Proteinuria. 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 Cr 2.1 from 1.6 (b/l) on admit, CXR w/ trace pulm edema, BNP 522. S/p lasix IV c/b slight bump in peak Cr 2.23, improved to 1.94 off diuretics, no assoc hyperkalemia. Diffusely edematous on exam & IV diuresis resumed 09/10, I&Os with urinary incontinence, but Cr improved to 1.8. Abd US neg for cirrhosis, hydronephrosis/hydroureter, +R pleural effusion. Remains on RA. Objective Medications: Scheduled: amLODIPine, 10 mg, oral, Daily atorvastatin, 40 mg, oral, Daily famotidine, 20 mg, oral, Daily ferrous sulfate, 65 mg of elemental iron, oral, Daily with breakfast furosemide, 40 mg, intravenous, BID DIURETIC heparin, 5,000 Units, subcutaneous, Q8H SOL insulin glargine, 24 Units, subcutaneous, Nightly insulin lispro, 0-10 Units, subcutaneous, TID with meals insulin lispro, 0-5 Units, subcutaneous, Nightly insulin lispro, 8 Units, subcutaneous, TID with meals polyethylene glycol, 17 g, oral, Daily pregabalin, 150 mg, oral, Daily risperiDONE, 2 mg, oral, Nightly Infusions: PRN: ??? acetaminophen ??? capsaicin ??? dextrose OR dextrose ??? glucagon Vitals: 24hr Min/Max: Temp Min: 36.5 ??C (97.7 ??F) Max: 36.8 ??C (98.2 ??F) Pulse Min: 81 Max: 95 BP Min: 122/54 Max: 167/72 Resp Min: 16 Max: 16 SpO2 Min: 95 % Max: 97 % Most Recent: Vitals: 09/11/21 0625 BP: 123/54 Pulse: 85 Resp: Temp: SpO2: Intake/Output Summary (Last 24 hours) at 09/11/2021 0852 Last data filed at 09/11/2021 0500 Gross per 24 hour Intake 1550 ml Output 600 ml Net 950 ml Physical Exam Vitals and nursing note reviewed. Constitutional: General: She is not in acute distress. Appearance: She is obese. She is not ill-appearing or diaphoretic. Comments: Diffuse anasarca, sitting in chair, alert, conversational. HENT: Head: Normocephalic and atraumatic. Right Ear: External ear normal. Left Ear: External ear normal. Nose: Nose normal. No congestion or rhinorrhea. Mouth/Throat: Mouth: Mucous membranes are moist. Pharynx: Oropharynx is clear. No oropharyngeal exudate or posterior oropharyngeal erythema. Eyes: General: No scleral icterus. Extraocular Movements: Extraocular movements intact. Conjunctiva/sclera: Conjunctivae normal. Pupils: Pupils are equal, round, and reactive to light. Neck: Comments: Chest and neck with edema. Cardiovascular: Rate and Rhythm: Normal rate and regular rhythm. Pulses: Normal pulses. Heart sounds: No murmur heard. No friction rub. No gallop. Pulmonary: Effort: Pulmonary effort is normal. No respiratory distress. Breath sounds: No stridor. No wheezing, rhonchi or rales. Comments: Decreased BS at bases bilaterally, shallow inpirations. No wheezing or rales appreciated. Chest: Chest wall: No tenderness. Abdominal: General: Bowel sounds are normal. There is no distension. Palpations: There is no mass. Tenderness: There is no abdominal tenderness. Hernia: No hernia is present. Comments: Obese, protuberant. No fluid wave appreciated. Musculoskeletal: General: Swelling present. Cervical back: Normal range of motion and neck supple. Right lower leg: Edema present. Left lower leg: Edema present. Comments: Diffuse pitting edema on U/L extremities. 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 Skin: General: Skin is warm and dry. Capillary Refill: Capillary refill takes less than 2 seconds. Coloration: Skin is not jaundiced. Findings: No rash. Neurological: General: No focal deficit present. Mental Status: She is alert. Cranial Nerves: No cranial nerve deficit. Sensory: Sensory deficit present. Comments: Alert, oriented, stocking glove distribution of neuropathy on hands, feet bilaterally. Psychiatric: Mood and Affect: Mood normal. Behavior: Behavior normal. Thought Content: Thought content normal. Lab/Diagnostic Review: Recent Results (from the past 36 hour(s)) POCT glucose Collection Time: 09/09/21 9:24 PM Result Value Ref Range Glucose, POC 181 70 - 199 mg/dL CBC with auto differential Collection Time: 09/09/21 9:49 PM Result Value Ref Range WBC 8.9 3.8 - 9.9 K/cumm Hgb 7.1 (L) 11.9 - 15.5 g/dL Hct 22.3 (L) 35.6 - 45.5 % Plt 259 150 - 400 K/cumm MPV 11.4 9.1 - 12.3 fL RBC 2.39 (L) 3.90 - 5.20 M/cumm MCV 93.3 81.3 - 96.4 fL MCH 29.7 27.1 - 33.3 pg MCHC 31.8 (L) 32.3 - 35.7 g/dL RDW CV 16.1 (H) 11.1 - 14.9 % RDW SD 54.0 (H) 35.7 - 48.1 fL NRBC abs 0.00 0.00 - 0.01 K/cumm Basic metabolic panel Collection Time: 09/09/21 9:49 PM Result Value Ref Range Sodium 145 135 - 145 mmol/L Potassium, pl 4.2 3.3 - 4.9 mmol/L Chloride 107 97 - 110 mmol/L CO2 27 22 - 32 mmol/L Anion gap 11 2 - 15 mmol/L BUN 43 (H) 8 - 25 mg/dL Creatinine 1.94 (H) 0.60 - 1.10 mg/dL Glucose 159 70 - 199 mg/dL Calcium 9.4 8.5 - 10.3 mg/dL Magnesium Collection Time: 09/09/21 9:49 PM Result Value Ref Range Magnesium 1.8 1.4 - 2.5 mg/dL Differential, auto Collection Time: 09/09/21 9:49 PM Result Value Ref Range Neutrophil abs 5.0 1.7 - 6.5 K/cumm Imm gran abs 0.1 0.0 - 0.1 K/cumm Lymphocyte abs 2.8 0.8 - 3.3 K/cumm Monocyte abs 0.8 0.2 - 0.8 K/cumm Eosinophil abs 0.2 0.0 - 0.5 K/cumm Basophil abs 0.0 0.0 - 0.1 K/cumm Neutrophil pct 56.2 % Imm gran pct 0.7 % Lymphocyte pct 31.4 % Monocyte pct 8.7 % Eosinophil pct 2.6 % Basophil pct 0.4 % eGFR Collection Time: 09/09/21 9:49 PM Result Value Ref Range eGFR 27 (L) 90 - 130 mL/min/1.73 m2 POCT glucose Collection Time: 09/10/21 11:00 AM Result Value Ref Range Glucose, POC 135 70 - 199 mg/dL CBC without differential Collection Time: 09/10/21 11:16 AM Result Value Ref Range WBC 10.3 (H) 3.8 - 9.9 K/cumm Hgb 8.8 (L) 11.9 - 15.5 g/dL Hct 28.3 (L) 35.6 - 45.5 % Plt 283 150 - 400 K/cumm MPV 12.2 9.1 - 12.3 fL RBC 3.02 (L) 3.90 - 5.20 M/cumm MCV 93.7 81.3 - 96.4 fL MCH 29.1 27.1 - 33.3 pg MCHC 31.1 (L) 32.3 - 35.7 g/dL RDW CV 16.1 (H) 11.1 - 14.9 % RDW SD 53.7 (H) 35.7 - 48.1 fL NRBC abs 0.02 (H) 0.00 - 0.01 K/cumm Type and screen Collection Time: 09/10/21 11:16 AM Result Value Ref Range Regi, indirect Negative ABO Rh B Positive POCT glucose Collection Time: 09/10/21 4:08 PM Result Value Ref Range Glucose, POC 191 70 - 199 mg/dL CBC with auto differential Collection Time: 09/10/21 9:10 PM Result Value Ref Range WBC 12.2 (H) 3.8 - 9.9 K/cumm Hgb 7.6 (L) 11.9 - 15.5 g/dL Hct 24.5 (L) 35.6 - 45.5 % Plt 299 150 - 400 K/cumm MPV 11.5 9.1 - 12.3 fL RBC 2.62 (L) 3.90 - 5.20 M/cumm MCV 93.5 81.3 - 96.4 fL MCH 29.0 27.1 - 33.3 pg MCHC 31.0 (L) 32.3 - 35.7 g/dL RDW CV 15.9 (H) 11.1 - 14.9 % RDW SD 53.3 (H) 35.7 - 48.1 fL NRBC abs 0.02 (H) 0.00 - 0.01 K/cumm Basic metabolic panel Collection Time: 09/10/21 9:10 PM Result Value Ref Range Sodium 142 135 - 145 mmol/L Potassium, pl 4.2 3.3 - 4.9 mmol/L Chloride 105 97 - 110 mmol/L CO2 26 22 - 32 mmol/L Anion gap 11 2 - 15 mmol/L BUN 42 (H) 8 - 25 mg/dL Creatinine 1.88 (H) 0.60 - 1.10 mg/dL Glucose 223 (H) 70 - 199 mg/dL Calcium 9.4 8.5 - 10.3 mg/dL Magnesium Collection Time: 09/10/21 9:10 PM Result Value Ref Range Magnesium 1.9 1.4 - 2.5 mg/dL Lipid panel Collection Time: 09/10/21 9:10 PM Result Value Ref Range Cholesterol 84 30 - 199 mg/dL Triglycerides 153 (H) <=149 mg/dL HDL 33 (L) >=40 mg/dL LDL, calculated 20 <=129 mg/dL Non-HDL Cholesterol 51 mg/dL Chol/HDL ratio 3 Pro B-type natriuretic peptide Collection Time: 09/10/21 9:10 PM Result Value Ref Range NT-proBNP 146 <=300 pg/mL Differential, auto Collection Time: 09/10/21 9:10 PM Result Value Ref Range Neutrophil abs 8.2 (H) 1.7 - 6.5 K/cumm Imm gran abs 0.1 0.0 - 0.1 K/cumm Lymphocyte abs 2.8 0.8 - 3.3 K/cumm Monocyte abs 0.8 0.2 - 0.8 K/cumm Eosinophil abs 0.3 0.0 - 0.5 K/cumm Basophil abs 0.0 0.0 - 0.1 K/cumm Neutrophil pct 67.4 % Imm gran pct 0.6 % Lymphocyte pct 23.0 % Monocyte pct 6.6 % Eosinophil pct 2.1 % Basophil pct 0.3 % eGFR Collection Time: 09/10/21 9:10 PM Result Value Ref Range eGFR 28 (L) 90 - 130 mL/min/1.73 m2 POCT glucose Collection Time: 09/10/21 9:44 PM Result Value Ref Range Glucose, POC 203 (H) 70 - 199 mg/dL I have reviewed the laboratory results. Imaging Results: Transthoracic Echo Complete W Doppler/CF Patient name: Barbara Chakraborty Date of test: 09/10/2021 Type of test: TTE w/Doppler [facility] #: [id number] Date of : 1950 (F) Italian Lecturer: Nalini Lopez RDCS Referring Physician: SAGAR MORENO MD Contrast Agent: 1.5 ml Optison Administered, (1.5 ml wasted). Contrast Administered by: Supervised/Interpreted by: Jevon Torrez MD Diagnosis: Location: [facility] Reason for test: HF, overload MV Structure: Normal, MV Motion: Normal, Mitral Annulus: Normal AV Structure: tricuspid and is Normal, AV Motion: Normal Aotic root: Normal, TM: Normal, PV: Normal Valvular Vegetations: none seen, Mass/Thrombi: none seen RA: Normal Measurements: M-Mode Normal Aotic Root: <3.8 LA: <3.8 RV: <2.8 LV(ED): <5.7 LV(ES): Variable 2D Linear Normal Aotic Root: 2.8 cm <3.6 Ao Indexed: 1.6 cm/M2 <2.0 LA: <3.8 RV: 3.7 cm <4.2 LV(ED): 3.8 cm <5.3 LV(ES): 2.2 cm <3.5 2D Vol. Normal Indexed Indexed Normal RA: 38.0 ml 21.8 ml/M2 9-33 LA: 46.0 ml 26.3 ml/M2 16-34 RV: <11.6 LV(ED): 83.0 ml 46-106 47.5 ml/M2 <62 LV(ES): 26.0 ml 14-42 14.9 ml/M2 <25 3D Vol. Indexed Normal LV(ED): <62 LV(ES): <24 LV EF: 69 % (Normal: >=54%) LV Septum: 1.3 cm (Normal: <0.9 cm) Wall Motion Scoring (1=Normal 2=Hypo 3=Akinetic 4=Dyskin./Aneurysm 0=Not visualized) Parasternal Long [place]:MAS=1 BAS=1 MIL=1 YOGESH=1 Parasternal Short [place]:MAS=1 MIS=1 SD=1 MIL=1 MAL=1 MA=1 Apical 4 Chambers:=1 MIS=1 BIS=1 BAL=1 MAL=1 AL=1 AC=1 Apical 2 Chambers:AI=1 SD=1 BI=1 BA=1 MA=1 AA=1 AC=1 LV Global Longitudinal Strain: -18.2% (Normal <-17%) RV Global Longitudinal Strain: LV Function: Normal LV Ejection Fraction, (EF=54-74%) RV Function: Normal Septal Motion: Normal Pericardial Effusion: none seen Atrial Septum: Normal DOPPLER/COLOR FLOW DOPPLER RESULTS: Diastolic Function: Normal Tricuspid Valve: mild TV regurgitation Pulmonic Valve: normal PV AV Regurgitation: No AR seen AV Stenosis: no AV Area: cm2 AV Pressure Gradient (mmHg): Mean: 0, Peak:0 MV Regurgitation: No MR seen MV Stenosis: no MS MV Area: cm2 MV Pressure Gradient (mmHg): Mean: 0 MV ERO: cm Regurg. Vol.: ml/beat Regurg. Frac.: % PA Pressure: 40 mmHg DOPPLER/COLOR FOLOW DOPPLER COMMENTS: No AR seen, No MR seen, no , no MS, mild TV regurgitation, normal PV. Diastolic function: Normal CONTRAST: 1.5 ml Optison Administered, (1.5 ml wasted). SUMMARY: Normal LV and RV size and systolic function. LVEF 69%. Normal global LV Myocardial longitudinal function and LV strain pattern. No significant valvular abnormalities noted. Estimated PA systolic pressure 40+RA(5-10) mmHg. Diastolic function is normal for age. LA is normal. Mild concentric LV hypertrophy. Normal Inferior vena cava. Normal aorta. No comparison study. Confirmed on 09/10/2021 - 10:36:11 by Jevon Torrez MD By signing this report, the attending utility plant operative certifies that he or she has personally supervised and interpreted the echocardiogram and has reviewed and or edited and agrees with the written comments contained within the report. I have independently reviewed and interpreted Cr 1.91, 1.99, 2.23, 1.99, 1.94 Ucx 09/07 insignificant TTE 09/10 Normal LV and RV size and systolic function. LVEF 69%. Normal global LV Myocardial longitudinal function and LV strain pattern. No significant valvular abnormalities noted. Estimated PA systolic pressure 40+RA(5-10) mmHg. Diastolic function is normal for age. LA is normal. Mild concentric LV hypertrophy. Normal Inferior vena cava. Normal aorta. No comparison study. Abd US 09/11 PRIOR Covid-19 RNA + on 08/13/2021 TTE 01/09/20 Normal left ventricular systolic function with no focal wall motion abnormalities. Normal left ventricular size. Normal left ventricular diastolic function. Ejection fraction is visually estimated at 67 %.The left atrium is normal in size. Normal left atrial pressure based on pulmonary vein inflow. The right atrium is normal in size. Right Ventricular Systolic Pressure could not be estimated due to inadequate visualization of TR jet. Assessment/Plan * Volume overload Assessment & Plan Due to progressive CRF4. Presents with increasing [...] regarding longterm dialysis planning, expedite OP f/u. Anemia Assessment & Plan Progressive anemia with Hb 7.1 from 9.7 over past month ago. 1+ blood in urine, neg cx. Pt denies gross hematuria, epistaxis, melena, hematochezia, hematemesis. Low FeSat, ferritin decreased to 179. Recent normal B12/Folate. Concerning for occult bleeding, but Hb stable. More likely related to CRF. -Started oral iron supplementation -suspect anemia in s/o progressive CRF. Defer to renal timing of epo agents. -GI made aware 09/09, will order OP EGD/colonoscopy at time of discharge and GI team will facilitateexpedited scheduling -Consented for blood transfusion, goal Hb > 7, give lasix 20 IV if giving blood STEFANO (acute kidney injury) ([facility] ([facility]) Assessment & Plan known CKD, likely 2/2 dm. Baseline Cr ~1.6, follows with nephrology outpatient. Cr 2.1 on admit w/ FEUrea 27% consistent with pre-renal injury such as cardiorenal syndrome, however normal LV/RV sys/diastolic function. Urinalysis with 1+ blood in setting of possible UTI. Cr improved initially after first dose of diuretics, worsened slightly with holding further diuresis & patient remained volume overloaded. -Ucx insignif -resumed IV diuresis 09/10 -Daily elecgtrolytes and renal function, unable to monitor strict I/O in s/o urinary incontinence, following serial weights. Avoid geller, if possible. - hold nephrotoxic agents/renally dose medications Dementia ([facility]) Assessment & Plan Reported baseline dementia, `AOX2-3. Corroborated by daughter who she lives with. Frequent hospitalizations this year. Suspect med compliance may be an issue. - currently at baseline neurological status -delirium precautions - PT OT Eval underway, PT rec 24 supervision with family, OT rec SNF. CM following for dispo planning. Type 2 diabetes mellitus with diabetic neuropathy, with long-term current use of insulin ([facility]) ([facility]) Assessment & Plan Home regimen lantus 18, lispro 5 TID AC + SSI, had recently had trulicity held due to renal function. Follows with endocrinology outpatient. A1c 8.4. Requiring multiple units of SSI daily. -Continue home statin -Increased glargine to 24=>25 units qPM, lispro to 8units TID, continue SSI and ADA diet. Complicated by diabetic neuropathy and nephropathy. Schizoaffective disorder, bipolar type (CMS/HCC) ([facility]) Assessment & Plan Hx of schizoaffective disorder, follows with psych outpatient. Earlier in year had been on daily haldol, weaned off due to increased fatigue. - currently no active psychotic manic symptoms, mood is stable and pleasant, cooperative with exam,testing and management. - continue home risperdal 2mg BID Diabetic neuropathy (CMS/HCC) ([facility]) Assessment & Plan Ongoing symptoms. Previously on lyrica and Likely exacerbated by volume status. Monitor for response with diuresis. * Maddi Aaron MD - 09/10/2021 3:22 PM CDT Daily Progress Note Division of Hospital Medicine Name: Barbara Chakraborty Today: September 10, 2021 : 1950 Age: 70 y.o. female Admit: 09/06/2021 Bed: [id number] Subjective Chief complaint: Volume overload. Acute on CRF4. Proteinuria. 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 CXR - trace pulm edema. Admission for volume overload iso STEFANO on CKD. S/p lasix IV c/b slight bump in peak Cr 2.23, improved to 1.94 off diuretics. no assoc hyperkalemia. Diffusely edematous on exam. Notes sore neck in back and numbness in fingers and toes. No perioral hyperesthesia. Denies SOB, CP, nausea or vomiting. Objective Medications: Scheduled: amLODIPine, 10 mg, oral, Daily atorvastatin, 40 mg, oral, Daily famotidine, 20 mg, oral, Daily ferrous sulfate, 65 mg of elemental iron, oral, Daily with breakfast [Held by Provider] furosemide, 40 mg, intravenous, BID DIURETIC heparin, 5,000 Units, subcutaneous, Q8H SOL insulin glargine, 24 Units, subcutaneous, Nightly insulin lispro, 0-10 Units, subcutaneous, TID with meals insulin lispro, 0-5 Units, subcutaneous, Nightly insulin lispro, 8 Units, subcutaneous, TID with meals polyethylene glycol, 17 g, oral, Daily pregabalin, 150 mg, oral, Daily risperiDONE, 2 mg, oral, Nightly Infusions: PRN: ??? acetaminophen ??? capsaicin ??? dextrose OR dextrose ??? glucagon Vitals: 24hr Min/Max: Temp Min: 36.5 ??C (97.7 ??F) Max: 36.8 ??C (98.2 ??F) Pulse Min: 75 Max: 86 BP Min: 112/51 Max: 143/59 Resp Min: 14 Max: 18 SpO2 Min: 94 % Max: 100 % Most Recent: Vitals: 09/10/21 0550 BP: 125/56 Pulse: 75 Resp: 14 Temp: 36.5 ??C (97.7 ??F) SpO2: 96% Intake/Output Summary (Last 24 hours) at 09/10/2021 0736 Last data filed at 09/09/2021 2255 Gross per 24 hour Intake 1030 ml Output 1150 ml Net -120 ml Physical Exam Vitals and nursing note reviewed. Constitutional: General: She is not in acute distress. Appearance: She is obese. She is not ill-appearing or diaphoretic. Comments: Diffuse anasarca, sitting in chair, alert, conversational. HENT: Head: Normocephalic and atraumatic. Right Ear: External ear normal. Left Ear: External ear normal. Nose: Nose normal. No congestion or rhinorrhea. Mouth/Throat: Mouth: Mucous membranes are moist. Pharynx: Oropharynx is clear. No oropharyngeal exudate or posterior oropharyngeal erythema. Eyes: General: No scleral icterus. Extraocular Movements: Extraocular movements intact. Conjunctiva/sclera: Conjunctivae normal. Pupils: Pupils are equal, round, and reactive to light. Neck: Comments: Chest and neck with edema. Cardiovascular: Rate and Rhythm: Normal rate and regular rhythm. Pulses: Normal pulses. Heart sounds: No murmur heard. No friction rub. No gallop. Pulmonary: Effort: Pulmonary effort is normal. No respiratory distress. Breath sounds: No stridor. No wheezing, rhonchi or rales. Comments: Decreased BS at bases bilaterally, shallow inpirations. No wheezing or rales appreciated. Chest: Chest wall: No tenderness. Abdominal: General: Bowel sounds are normal. There is no distension. Palpations: There is no mass. Tenderness: There is no abdominal tenderness. Hernia: No hernia is present. Comments: Obese, protuberant. No fluid wave appreciated. Musculoskeletal: General: Swelling present. Cervical back: Normal range of motion and neck supple. Right lower leg: Edema present. Left lower leg: Edema present. Comments: Diffuse pitting edema on U/L extremities. 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 Skin: General: Skin is warm and dry. Capillary Refill: Capillary refill takes less than 2 seconds. Coloration: Skin is not jaundiced. Findings: No rash. Neurological: General: No focal deficit present. Mental Status: She is alert. Cranial Nerves: No cranial nerve deficit. Sensory: Sensory deficit present. Comments: Alert, oriented, stocking glove distribution of neuropathy on hands, feet bilaterally. Psychiatric: Mood and Affect: Mood normal. Behavior: Behavior normal. Thought Content: Thought content normal. Lab/Diagnostic Review: Recent Results (from the past 36 hour(s)) POCT glucose Collection Time: 09/08/21 8:47 PM Result Value Ref Range Glucose, POC 246 (H) 70 - 199 mg/dL Basic metabolic panel, serum Collection Time: 09/08/21 9:50 PM Result Value Ref Range Sodium 143 135 - 145 mmol/L Potassium, sr 4.2 3.6 - 5.2 mmol/L Chloride 103 97 - 110 mmol/L CO2 29 22 - 32 mmol/L Anion gap 11 2 - 15 mmol/L BUN 41 (H) 8 - 25 mg/dL Creatinine 2.23 (H) 0.60 - 1.10 mg/dL Glucose 194 70 - 199 mg/dL Calcium 9.8 8.5 - 10.3 mg/dL Magnesium Collection Time: 09/08/21 9:50 PM Result Value Ref Range Magnesium 1.9 1.4 - 2.5 mg/dL eGFR Collection Time: 09/08/21 9:50 PM Result Value Ref Range eGFR 23 (L) 90 - 130 mL/min/1.73 m2 CBC with auto differential Collection Time: 09/08/21 9:58 PM Result Value Ref Range WBC 9.7 3.8 - 9.9 K/cumm Hgb 8.0 (L) 11.9 - 15.5 g/dL Hct 25.3 (L) 35.6 - 45.5 % Plt 292 150 - 400 K/cumm MPV 11.5 9.1 - 12.3 fL RBC 2.72 (L) 3.90 - 5.20 M/cumm MCV 93.0 81.3 - 96.4 fL MCH 29.4 27.1 - 33.3 pg MCHC 31.6 (L) 32.3 - 35.7 g/dL RDW CV 15.9 (H) 11.1 - 14.9 % RDW SD 52.0 (H) 35.7 - 48.1 fL NRBC abs 0.02 (H) 0.00 - 0.01 K/cumm Differential, auto Collection Time: 09/08/21 9:58 PM Result Value Ref Range Neutrophil abs 5.6 1.7 - 6.5 K/cumm Imm gran abs 0.0 0.0 - 0.1 K/cumm Lymphocyte abs 3.1 0.8 - 3.3 K/cumm Monocyte abs 0.7 0.2 - 0.8 K/cumm Eosinophil abs 0.2 0.0 - 0.5 K/cumm Basophil abs 0.0 0.0 - 0.1 K/cumm Neutrophil pct 57.9 % Imm gran pct 0.4 % Lymphocyte pct 32.0 % Monocyte pct 7.1 % Eosinophil pct 2.3 % Basophil pct 0.3 % POCT glucose Collection Time: 09/09/21 8:40 AM Result Value Ref Range Glucose, POC 222 (H) 70 - 199 mg/dL POCT glucose Collection Time: 09/09/21 12:24 PM Result Value Ref Range Glucose, POC 287 (H) 70 - 199 mg/dL Basic metabolic panel Collection Time: 09/09/21 1:56 PM Result Value Ref Range Sodium 142 135 - 145 mmol/L Potassium, pl 4.5 3.3 - 4.9 mmol/L Chloride 106 97 - 110 mmol/L CO2 29 22 - 32 mmol/L Anion gap 7 2 - 15 mmol/L BUN 40 (H) 8 - 25 mg/dL Creatinine 1.99 (H) 0.60 - 1.10 mg/dL Glucose 257 (H) 70 - 199 mg/dL Calcium 9.5 8.5 - 10.3 mg/dL eGFR Collection Time: 09/09/21 1:56 PM Result Value Ref Range eGFR 27 (L) 90 - 130 mL/min/1.73 m2 POCT glucose Collection Time: 09/09/21 6:10 PM Result Value Ref Range Glucose, POC 215 (H) 70 - 199 mg/dL POCT glucose Collection Time: 09/09/21 9:24 PM Result Value Ref Range Glucose, POC 181 70 - 199 mg/dL CBC with auto differential Collection Time: 09/09/21 9:49 PM Result Value Ref Range WBC 8.9 3.8 - 9.9 K/cumm Hgb 7.1 (L) 11.9 - 15.5 g/dL Hct 22.3 (L) 35.6 - 45.5 % Plt 259 150 - 400 K/cumm MPV 11.4 9.1 - 12.3 fL RBC 2.39 (L) 3.90 - 5.20 M/cumm MCV 93.3 81.3 - 96.4 fL MCH 29.7 27.1 - 33.3 pg MCHC 31.8 (L) 32.3 - 35.7 g/dL RDW CV 16.1 (H) 11.1 - 14.9 % RDW SD 54.0 (H) 35.7 - 48.1 fL NRBC abs 0.00 0.00 - 0.01 K/cumm Basic metabolic panel Collection Time: 09/09/21 9:49 PM Result Value Ref Range Sodium 145 135 - 145 mmol/L Potassium, pl 4.2 3.3 - 4.9 mmol/L Chloride 107 97 - 110 mmol/L CO2 27 22 - 32 mmol/L Anion gap 11 2 - 15 mmol/L BUN 43 (H) 8 - 25 mg/dL Creatinine 1.94 (H) 0.60 - 1.10 mg/dL Glucose 159 70 - 199 mg/dL Calcium 9.4 8.5 - 10.3 mg/dL Magnesium Collection Time: 09/09/21 9:49 PM Result Value Ref Range Magnesium 1.8 1.4 - 2.5 mg/dL Differential, auto Collection Time: 09/09/21 9:49 PM Result Value Ref Range Neutrophil abs 5.0 1.7 - 6.5 K/cumm Imm gran abs 0.1 0.0 - 0.1 K/cumm Lymphocyte abs 2.8 0.8 - 3.3 K/cumm Monocyte abs 0.8 0.2 - 0.8 K/cumm Eosinophil abs 0.2 0.0 - 0.5 K/cumm Basophil abs 0.0 0.0 - 0.1 K/cumm Neutrophil pct 56.2 % Imm gran pct 0.7 % Lymphocyte pct 31.4 % Monocyte pct 8.7 % Eosinophil pct 2.6 % Basophil pct 0.4 % eGFR Collection Time: 09/09/21 9:49 PM Result Value Ref Range eGFR 27 (L) 90 - 130 mL/min/1.73 m2 I have reviewed the laboratory results. Imaging Results: XR Chest Pa Lateral 2 Views Narrative: EXAMINATION: XR CHEST PA LATERAL 2 VIEWS HISTORY: Peripheral edema COMPARISON: 09/02/2021 Impression: Minimally increased small right pleural effusion with mild right basilar atelectasis. No left pleural effusion. No pneumothorax. Cardiomediastinal silhouette is stable. Dictated by: Luan Colunga M.D. The radiology attending physician has personally reviewed this study, and had reviewed and/or edited this written report and agrees with it. Electronically signed by: Luci Faith M.D. ECG 12 lead Audie Austin MD 09/06/2021 5:49 PM ECG 12 lead Date/Time: 09/06/2021 5:48 PM Performed by: Audie Austin MD Authorized by: Demetri Del Toro IV, RUG UNDERLAY MACHINE OPERATOR Rate: ECG rate: 87 Comments: Normal axis normal sinus rhythm. Rate 87. No STEMI. No change from previous which was done on August 08, 2021. Further workup in the ER. I have independently reviewed and interpreted Cr 1.91, 1.99, 2.23, 1.99, 1.94 Ucx 09/07 insignificant TTE 09/10 Normal LV and RV size and systolic function. LVEF 69%. Normal global LV Myocardial longitudinal function and LV strain pattern. No significant valvular abnormalities noted. Estimated PA systolic pressure 40+RA(5-10) mmHg. Diastolic function is normal for age. LA is normal. Mild concentric LV hypertrophy. Normal Inferior vena cava. Normal aorta. No comparison study. Abd US pending PRIOR Covid-19 RNA + on 08/13/2021 TTE 01/09/20 Normal left ventricular systolic function with no focal wall motion abnormalities. Normal left ventricular size. Normal left ventricular diastolic function. Ejection fraction is visually estimated at 67 %.The left atrium is normal in size. Normal left atrial pressure based on pulmonary vein inflow. The right atrium is normal in size. Right Ventricular Systolic Pressure could not be estimated due to inadequate visualization of TR jet. Assessment/Plan * Volume overload Assessment & Plan Presents with increasing swelling, 6lb weight gain, daughter voicing concerns of exertional dyspnea/orthopnea as well. Last echo in 2019 grossly normal, per cards note had recent one with G1ddf. No ischemic hx or diuretic use. Has 1+ pitting edema in BL LE, no pulmonary edema on CXR, BNP 500. Renalfunction improved after 20 IV lasix on day [...] 1/2-1L/day. -consider renal consult regarding longterm dialysis planning. Anemia Assessment & Plan Progressive anemia with Hb 7.1 from 9.7 over past month ago. 1+ blood in urine, neg cx. Pt denies gross hematuria, epistaxis, melena, hematochezia, hematemesis. Low FeSat, ferritin decreased to 179. Recent normal B12/Folate. Concerning for occult bleeding -Started oral iron supplementation -suspect anemia in s/o progressive CRF. -GI made aware 09/09, will order OP EGD/colonoscopy at time of discharge and GI team will facilitateexpedited scheduling -Consented for blood transfusion, goal Hb > 7, give lasix 20 IV if giving blood STEFANO (acute kidney injury) (CMS/HCC) (HCC) Assessment & Plan A: known CKD, likely 2/2 dm. Baseline Cr ~1.4, follows with nephrology outpatient. Cr 2.1 on admission of unclear etiology. FEUrea 27% consistent with pre-renal injury such as cardiorenal syndrome. Urinalysis with 1+ blood in setting of possible UTI. Cr improved initially after first dose of diuretics, worsened slightly with further diuresis & held, patient remains volume overloaded. -Ucx insignif -resume diuresis -Daily BMP, strict I/O - hold nephrotoxic agents/renally dose medications Dementia ([facility]) Assessment & Plan Reported baseline dementia, `AOX2-3. Corroborated by daughter who she lives with. Frequent hospitalizations this year. Suspect med compliance may be an issue. - currently at baseline neurological status -delirium precautions - PT OT Eval Type 2 diabetes mellitus with diabetic neuropathy, with long-term current use of insulin ([facility]) ([facility]) Assessment & Plan Home regimen lantus 18, lispro 5 TID AC + SSI, had recently had trulicity held due to renal function. Follows with endocrinology outpatient. A1c 8.4. Requiring multiple units of SSI daily. -Continue home statin -Increased glargine to 24 units qPM, lispro to 8units TID, continue SSI Complicated by diabetic neuropathy and nephropathy. Schizoaffective disorder, bipolar type ([facility]) ([facility]) Assessment & Plan Hx of schizoaffective disorder, follows with psych outpatient. Earlier in year had been on daily haldol, weaned off due to increased fatigue. - currently no active psychotic manic symptoms, mood is stable and pleasant - continue home risperdal 2mg BID Diabetic neuropathy ([facility]) ([facility]) Assessment & Plan Ongoing symptoms. Previously on lyrica and Likely exacerbated by volume status. * Demetria Roy MSW - 09/10/2021 2:18 PM CDT Social Work Assessment Clinical Dx: Hypervolemia, unspecified hypervolemia type Past Medical History: Date of last inpatient admission: Previous admit date: 08/07/2021 Number of inpatient admissions in past year: 3 Reason for Current Hospitalization (Pt/Caregiver Stated): STEFANO (09/10/21 1402) Patient Information: Information Obtained From: Patient Marital Status: Does Pt have Legal Guardian, Surrogate Decision Maker or Healthcare Agent? : Yes-patient stated Patient Stated Surrogate Name/Phone: Malena Gayle (daughter/[phone]) Employment Status: Disabled Race: Black or -Eritrean Ethnicity: Non- Sexual Orientation : JIARO Gender Identity: (JAIRO) Service : None (09/10/211401) Current Situation: Current Situation Living Arrangements: Children Type of Residence: Private residence Income: SSD/SSI Income Comment: JAIRO Education Level : High School Diploma How do you Pay for Medication: Insurance Current Transportation: Public, Family/friends What do you do with your Free Time: Singing, muslim activities (09/09/211453) Legal History: Legal History Legal Information : No legal issues Comment: JAIRO (09/09/211453) Support Systems and Spirituality: Support Systems and Spirituality Support System: Children Children Name/Contact Information: Areli Gayle (daughter/[phone] or [phone]) and Malena Gayle (daughter/[phone]) Do you have a Yazidi Preference or Affiliation?: Yes Preference/Affiliation : Sabianist Are there any Yazidi Practices that are important to maintain while admitted?: No Do you have Cultural Factors that are important to you?: No Description of Childhood: JAIRO History of physical abuse? : No History of physically abusing others? : No History of sexual abuse?: No History of sexually abusing others? : No History of Mental/Emotional Abuse? : No (09/10/211401) Strengths, Assets, Liabilities and Stressors: Strengths, Assets, Liabilities, and Stressors Strengths (Must Choose Two): Vocational interests, i.e., hobbies, Interpersonal relationships and supports,i.e., family, friends, peers, Cultural/spiritual/hindu and community involvement, Accessto housing/residential stability Patient Assets: Home, Insured, Supportive family, Transportation Hope and Strength during Difficult Times: Family support Does Pt have access to Employee Assistance Program: No Patient Barriers : Dependent on others for completion of ADL's, Poor physical health Current Stressors: Chronic illness (09/10/211401) SDOH Transportation Needs: No Transportation Needs ??? Lack of Transportation (Medical): No ??? Lack of Transportation (Non-Medical): No Financial Resource Strain: Low Risk ??? Difficulty of Paying Living Expenses: Not hard at all Housing Stability: Low Risk ??? Unable to Pay for Housing in the Last Year: No ??? Number of Places Lived in the Last Year: 2 ??? Unstable Housing in the Last Year: No Social Connections: Socially Isolated ??? Frequency of Communication with Friends and Family: More than three times a week ??? Frequency of Social Gatherings with Friends and Family: More than three times a week ??? Attends Yazidi Services: Never ??? Active Member of Clubs or Organizations: No ??? Attends Club or Organization Meetings: Never ??? Marital Status: Tobacco Use: Low Risk ??? Smoking Tobacco Use: Never Smoker ??? Smokeless Tobacco Use: Never Used Social History Substance and Sexual Activity Alcohol Use Not Currently PHQ Screening Over the last 2 weeks, [...] points, staff should administer the PHQ-9): 0 Drug Details Questions Responses Amphetamine frequency Never [...] Substance Abuse, Mental Health, and Trauma History: Substance Abuse, Mental Health & Trauma History Substance Abuse: None reported from patient Mental Health: dx schizoaffective disorder. Patient reports no outpatient support, no mental healthconcerns. (09/10/21 1402) Risk to Self and Others: Risk to Self and Others Violence risk to self in past 6 months? : No Self Harm/Suicidal Ideation Plan: No Previous Self Harm/Suicidal Attempts: No Violence risk to others in past 6 months? : No Any lifetime risk of violence to others? : No Current Plans to Harm Another: No Previous Plans to Harm Another: None (09/10/21 1402) Impressions and Recommendations: Ms. Chakraborty is a 70 year old female with a PMH of DM2, schizoaffective disorder, and dementia (baseline AOx2-3) who presented to the ED after seeing her primary care doctor with labs showing STEFANO and exam concerning for volume overload. [facility] and 30 day readmit. She was last admitted from 08/07/21- 08/14/21 at [facility] for AKIand weakness. She then discharged to [facility] per team's recommendations. From [facility], patient then discharged to her daughter's home at [address] [place] [address]. Patient was at home prior this admission. Social work met with patient to discuss housing, utilitie s, food and transportation. Patient voiced no major concerns in these areas. She takes public transportation or her daughter provides transportation. Patient lives at home with her daughter, Areli.Patient reports that her daughter works during the day, so there are periods of time where she is home alone. DME includes a straight cane and wheeled walker. She enjoys getting her nails done with her daughter, singing and attending muslim activities. No social work needs identified. Patient does not have DPOA on file. Patient verbally appointed her daughter, Malena Gayle ([phone]) to be her surrogate decision maker if she becomes unable. Predictive Model Details 23% (High Risk) Factor Value Calculated 09/10/2021 12:03 25% Number of active Rx orders 41 Risk of Unplanned Readmission Model 10% Number of ED visits in last six months 2 8% Active antipsychotic Rx order present 8% ECG/EKG order present in last 6 months 7% Diagnosis of electrolyte disorder present 6% Charlson Comorbidity Index 6 6% Imaging order present in last 6 months 5% Latest hemoglobin low (7.1 g/dL) 5% Age 70 4% Number of hospitalizations in last year 1 4% Diagnosis of deficiency anemia present 4% Active anticoagulant Rx order present 4% Latest creatinine high (1.94 mg/dL) 3% Current length of stay 3.486 days 2% Future appointment scheduled 1% Active ulcer medication Rx order present Demetria Roy LMSW * Demetria Roy MSW - 09/09/2021 2:57 PM CDT Social Work Assessment Clinical Dx: Hypervolemia, unspecified hypervolemia type Past Medical History: Date of last inpatient admission: Previous admit date: 08/07/2021 Number of inpatient admissions in past year: 3 Reason for Current Hospitalization (Pt/Caregiver Stated): [facility] (09/09/211453) Patient Information: Information Obtained From: Other (Specify) (Chart review) Marital Status: Unable to assess Does Pt have Legal Guardian, Surrogate Decision Maker or Healthcare Agent? : No Sexual Orientation : [facility] Service : [facility] (09/09/211453) Current Situation: Current Situation Income Comment: [facility] How do you Pay for Medication: [facility] What do you do with your Free Time: [facility] (09/09/211453) Legal History: Legal History Legal Information : Other (Comment) Comment: [facility] (09/09/211453) Support Systems and Spirituality: Support Systems and Spirituality Support System: Children Children Name/Contact Information: Areli Gayle (daughter/[phone] or [phone]) Malena Gayle (daughter/[phone]) Description of Childhood: [facility] History of physical abuse? : Unable to answer History of physically abusing others? : Unable to answer History of sexual abuse?: Unable to answer History of sexually abusing others? : Unable to answer History of Mental/Emotional Abuse? : Unable to answer (09/09/211453) Strengths, Assets, Liabilities and Stressors: Strengths, Assets, Liabilities, and Stressors Hope and Strength during Difficult Times: [facility] (09/09/211453) SDOH Transportation Needs: Unknown ??? Lack of Transportation (Medical): Patient refused ??? Lack of Transportation (Non-Medical): Patient refused Financial Resource Strain: Unknown ??? Difficulty of Paying Living Expenses: Patient refused Housing Stability: Unknown ??? Unable to Pay for Housing in the Last Year: Patient refused ??? Number of Places Lived in the Last Year: 0 ??? Unstable Housing in the Last Year: Patient refused Social Connections: Unknown ??? Frequency of Communication with Friends and Family: Patient refused ??? Frequency of Social Gatherings with Friends and Family: Patient refused ??? Attends Yazidi Services: Patient refused ??? Active Member of Clubs or Organizations: Patient refused ??? Attends Club or Organization Meetings: Patient refused ??? Marital Status: Patient refused Tobacco Use: Low Risk ??? Smoking Tobacco Use: Never Smoker ??? Smokeless Tobacco Use: Never Used Social History Substance and Sexual Activity Alcohol Use Not Currently PHQ Screening Over the last 2 weeks, how often have you been bothered by any of the following problems? Little Interest or Pleasure in Doing Things: (JAIRO) Feeling Down, Depressed, or Hopeless: (JAIRO) Over the past 2 weeks, how often have you been bothered by any of the following problems? Little Interest or Pleasure in Doing Things: (JAIRO) Feeling Down, Depressed, or Hopeless: (JAIRO) Drug Details Questions Responses Amphetamine frequency Never [...] Substance Abuse, Mental Health, and Trauma History: Substance Abuse, Mental Health & Trauma History Substance Abuse: JAIRO Mental Health: JAIRO (09/09/21 2187) Risk to Self and Others: Risk to Self and Others Violence risk to self in past 6 months? : Unable to assess Self Harm/Suicidal Ideation Plan: Unable to assess Violence risk to others in past 6 months? : Unable to assess Any lifetime risk of violence to others? : Unable to assess Previous Plans to Harm Another: JAIRO (09/09/21 6897) Impressions and Recommendations: Ms. Barbara Chakraborty is a 70 year old female with a PMH of DM2, schizoaffective disorder, and dementia (baseline AOx2-3) who presented to the ED after seeing her primary care doctor with labs showing STEFANO and exam concerning for volume overload. Social work consulted forhigh risk for readmission and 30 day readmit. Patient [facility] she discharged to [facility]. Patient recently discharged and has been living at her daughter's house. Social work attempted to meet with patient, however she was sleeping. SW will attempt to meet with her at a later time. Predictive Model Details 23% (High Risk) Factor Value Calculated 09/09/2021 12:03 25% Number of active Rx orders 42 Risk of Unplanned Readmission Model 10% Number of ED visits in last six months 2 8% Active antipsychotic Rx order present 8% ECG/EKG order present in last 6 months 7% Diagnosis of electrolyte disorder present 6% Charlson Comorbidity Index 6 6% Imaging order present in last 6 months 5% Latest hemoglobin low (8.0 g/dL) 5% Age 70 4% Number of hospitalizations in last year 1 4% Diagnosis of deficiency anemia present 4% Active anticoagulant Rx order present 4% Latest creatinine high (2.23 mg/dL) 2% Current length of stay 2.486 days 2% Future appointment scheduled 1% Active ulcer medication Rx order present Demetria Roy LMSW * Yaniv Barton MD - 09/09/2021 10:32 AM CDT Daily Progress Note Division of Hospital Medicine Name: Barbara Chakraborty Today: September 09, 2021 : 1950 Age: 70 y.o. female Admit: 09/06/2021 Bed: [id number] Subjective Chief complaint: STEFANO, weight gain, possible HF exacerbation Interval History: NAEO. Cr worsened yesterday with further diuresis. No overt bleeding symptoms. Hbstable. Objective Medications: Scheduled: amLODIPine, 10 mg, oral, Daily atorvastatin, 40 mg, oral, Daily famotidine, 20 mg, oral, Daily ferrous sulfate, 65 mg of elemental iron, oral, Daily with breakfast [Held by Provider] furosemide, 40 mg, intravenous, BID DIURETIC heparin, 5,000 Units, subcutaneous, Q8H SOL insulin glargine, 24 Units, subcutaneous, Nightly insulin lispro, 0-10 Units, subcutaneous, TID with meals insulin lispro, 0-5 Units, subcutaneous, Nightly insulin lispro, 8 Units, subcutaneous, TID with meals polyethylene glycol, 17 g, oral, Daily pregabalin, 150 mg, oral, Daily risperiDONE, 2 mg, oral, Nightly Infusions: Lactated Ringer's, 100 mL/hr, Last Rate: 100 mL/hr (09/09/21 0850) PRN: ??? acetaminophen ??? capsaicin ??? dextrose OR dextrose ??? glucagon Vitals: 24hr Min/Max: Temp Min: 36.5 ??C (97.7 ??F) Max: 37 ??C (98.6 ??F) Pulse Min: 70 Max: 81 BP Min: 115/60 Max: 128/54 Resp Min: 16 Max: 18 SpO2 Min: 94 % Max: 97 % Most Recent: Vitals: 09/09/21 0835 BP: 128/54 Pulse: 81 Resp: 16 Temp: 36.5 ??C (97.7 ??F) SpO2: 94% Intake/Output Summary (Last 24 hours) at 09/09/2021 1032 Last data filed at 09/09/2021 0920 Gross per 24 hour Intake 740 ml Output 2700 ml Net -1960 ml Physical Exam: Constitutional: NAD, well developed, well nourished Eyes: PERRL, EOMI, anicteric ENT: NCAT, oropharynx normal, moist mucus membranes Lungs: Clear to auscultation in all lung cavanaugh, unlabored Cardiovascular: RRR, normal S1 and S2, no murmurs, unable to appreciate JVD GI: Soft, non-tender, non-distended, bowel sounds +, no organomegaly Skin: No new rashes, lesions or bruises on visible skin Extremities: No LE edema Neurologic: AOx2, no focal deficits Psychiatric: Normal affect and mood Lab/Diagnostic Review: Recent Results (from the past 24 hour(s)) POCT glucose Collection Time: 09/08/21 12:30 PM Result Value Ref Range Glucose, POC 263 (H) 70 - 199 mg/dL POCT glucose Collection Time: 09/08/21 5:18 PM Result Value Ref Range Glucose, POC 191 70 - 199 mg/dL POCT glucose Collection Time: 09/08/21 8:47 PM Result Value Ref Range Glucose, POC 246 (H) 70 - 199 mg/dL Basic metabolic panel, serum Collection Time: 09/08/21 9:50 PM Result Value Ref Range Sodium 143 135 - 145 mmol/L Potassium, sr 4.2 3.6 - 5.2 mmol/L Chloride 103 97 - 110 mmol/L CO2 29 22 - 32 mmol/L Anion gap 11 2 - 15 mmol/L BUN 41 (H) 8 - 25 mg/dL Creatinine 2.23 (H) 0.60 - 1.10 mg/dL Glucose 194 70 - 199 mg/dL Calcium 9.8 8.5 - 10.3 mg/dL Magnesium Collection Time: 09/08/21 9:50 PM Result Value Ref Range Magnesium 1.9 1.4 - 2.5 mg/dL eGFR Collection Time: 09/08/21 9:50 PM Result Value Ref Range eGFR 23 (L) 90 - 130 mL/min/1.73 m2 CBC with auto differential Collection Time: 09/08/21 9:58 PM Result Value Ref Range WBC 9.7 3.8 - 9.9 K/cumm Hgb 8.0 (L) 11.9 - 15.5 g/dL Hct 25.3 (L) 35.6 - 45.5 % Plt 292 150 - 400 K/cumm MPV 11.5 9.1 - 12.3 fL RBC 2.72 (L) 3.90 - 5.20 M/cumm MCV 93.0 81.3 - 96.4 fL MCH 29.4 27.1 - 33.3 pg MCHC 31.6 (L) 32.3 - 35.7 g/dL RDW CV 15.9 (H) 11.1 - 14.9 % RDW SD 52.0 (H) 35.7 - 48.1 fL NRBC abs 0.02 (H) 0.00 - 0.01 K/cumm Differential, auto Collection Time: 09/08/21 9:58 PM Result Value Ref Range Neutrophil abs 5.6 1.7 - 6.5 K/cumm Imm gran abs 0.0 0.0 - 0.1 K/cumm Lymphocyte abs 3.1 0.8 - 3.3 K/cumm Monocyte abs 0.7 0.2 - 0.8 K/cumm Eosinophil abs 0.2 0.0 - 0.5 K/cumm Basophil abs 0.0 0.0 - 0.1 K/cumm Neutrophil pct 57.9 % Imm gran pct 0.4 % Lymphocyte pct 32.0 % Monocyte pct 7.1 % Eosinophil pct 2.3 % Basophil pct 0.3 % POCT glucose Collection Time: 09/09/21 8:40 AM Result Value Ref Range Glucose, POC 222 (H) 70 - 199 mg/dL Additional tests: I have reviewed the laboratory results. Imaging Results: XR Chest Pa Lateral 2 Views Narrative: EXAMINATION: XR CHEST PA LATERAL 2 VIEWS HISTORY: Peripheral edema COMPARISON: 09/02/2021 Impression: Minimally increased small right pleural effusion with mild right basilar atelectasis. No left pleural effusion. No pneumothorax. Cardiomediastinal silhouette is stable. Dictated by: Luan Colunga M.D. The radiology attending physician has personally reviewed this study, and had reviewed and/or edited this written report and agrees with it. Electronically signed by: Luci Faith M.D. ECG 12 lead Audie Austin MD 09/06/2021 5:49 PM ECG 12 lead Date/Time: 09/06/2021 5:48 PM Performed by: Audie Austin MD Authorized by: Demetri Del Toro IV, RUG UNDERLAY MACHINE OPERATOR Rate: ECG rate: 87 Comments: Normal axis normal sinus rhythm. Rate 87. No STEMI. No change from previous which was done on August 08, 2021. Further workup in the ER. I have independently reviewed and interpreted the test(s)/imaging.. Assessment/Plan * Acute on chronic heart failure with preserved ejection fraction (HFpEF) ([facility]) ([facility]) Assessment & Plan A: presents with increasing swelling, 6lb weight gain, daughter [...] has since further worsened with diuretics. Patient now appears euvolemic Plan: -Hold diuretics -Repeat TTE - telemetry, strict I/O Anemia Assessment & Plan A: Hb 7.1 from 9.7 1 month ago. 1+ blood in urine. Pt denies gross hematuria, epistaxis, melena, hematochezia, hematemesis. Low FeSat, ferritin decreased to 179. Recent normal B12/FA. Concerning for occult bleeding Plan: -Start oral iron supplementation -GI made aware 09/09, will order OP EGD/colonoscopy at time of discharge and GI team will facilitate expedited scheduling -Consented for blood transfusion, goal Hb > 7, give lasix 20 IV if giving blood STEFANO (acute kidney injury) ([facility]) ([facility]) Assessment & Plan A: known CKD, likely 2/2 dm. Baseline Cr ~1.4, follows with nephrology outpatient. Cr 2.1 on admission of unclear etiology. FEUrea 27% consistent with pre-renal injury such as cardiorenal syndrome. Urinalysis with 1+ blood in setting of possible UTI. Cr improved initially after first dose of diuretics, now has worsened with further diuresis, patient now appears euvolemic Plan: -Hold lasix, trial 500 IVF/5 hours, repeat BMP to assess response to fluids -Daily BMP, strict I/O - hold nephrotoxic agents/renally dose medications Dementia ([facility]) Assessment & Plan A: reported baseline dementia, `AOX2-3. Corroborated by daughter who she lives with. Frequent hospitalizations this year. Plan: - currently at baseline neurological status - PT OT Eval Type 2 diabetes mellitus with diabetic neuropathy, with long-term current use of insulin ([facility]) ([facility]) Assessment & Plan A: Home regimen lantus 18, lispro 5 TID AC + SSI, had recently had trulicity held due to renal function. Follows with endocrinology outpatient. A1c 8.4. Requiring multiple units of SSI daily. Plan: -Continue home statin -Increase glargine to 24 U qS, lispro to 8U TID, continue SSI Schizoaffective disorder, bipolar type ([facility]) ([facility]) Assessment & Plan A: hx of schizoaffective disorder, follows with psych outpatient. Earlier in year had been on dailyhaldol, weaned off due to increased fatigue. - currently no active psychotic manic symptoms, mood is stable and pleasant - continue home risperdal 2mg BID Yaniv Barton Instructor - Division of Hospital Medicine * Macey Bryan OT - 09/09/2021 9:31 AM CDT Occupational Therapy Occupational Therapy Initial Assessment NOTE:This is a summary note for the north assessments completed during the evaluation session. For full details, review chart review for all flowsheets documented on by this Occupational Therapist on this date. Vital signs documented in vital signs flowsheet. Assessment Assessment Problem List: Decreased upper extremity strength, Decreased cognition, Decreased endurance, Decreased balance, Decreased functional mobility, Decreased ADL independence, Decreased IADL independence Barriers to Discharge: Current Mobility Status, Cognition, Decreased caregiver support Barrier Comments: fall risk Plan Plan Plan: Plan of care initiated, If this is the last note, consider this the discharge summary OT Recommendation and Plan Recommendation/Plan OT Recommendation: Assisted Facility OT Recommendation/Plan Comments: SNF pending further progress and no 12/01 assist available. If pt. or family declines, 12/01 assist and HHOT. OT Frequency: 2-3x/wk Comments: Pt. seen for initial OT eval this date. Pt. educated on OT role and purpose of visit. Pt.verbalized understanding. Pt. educated on OT POC and discharge recs; pt. verbalized understanding. Pt. with no further questions. Treatment/Interventions: ADL/IADL retraining, Balance Training, Bed mobility, Cognitive retraining,Compensatory technique education, Endurance training, Functional activity, Functional mobility training, Functional transfer training, Strengthening, Therapeutic activity, Therapeutic exercise, Transfer training, Upper extremity motor function/functional skills OT - Next Appointment: 09/11/21 OT - OK to Discharge: No OT Evaluation Complete: Yes General Information General Chart Reviewed: Yes Session Type: Evaluation OT Received On: 09/09/21 Safe Environment: Arm Band Checked, Chair Alarm placed and activated, Call Light within Reach, Notified RN, Patient found sitting in Chair, Overbed Table within Reach (Pt. left sitting in a recliner,all needs met.) Subjective: Agreeable to Therapy Family/Caregiver Present: No Occupational Therapy-Patient Goal: Pt. did not state a specific goal this date. Precautions Precautions Precautions: Fall risk Precaution Comments: PPE worn by OT: surgical mask, gloves. Home Living Home Living Type of Home: Apartment Home Layout: One level Home Access: Level entry Bathroom Shower/Tub: Walk-in shower with threshold Bathroom Toilet: Standard Bathroom Equipment: Other (Comment) (none) Home Mobility Equipment: 4-Wheeled walker Additional Comments: Pt. reports using w/w for mobility at baseline. Prior Function Prior Function Level of [place]: Independent with ADLs, Independent functional transfers, Independent with ambulation, Needs assistance with homemaking Lives With: Daughter Receives Help From: Family (auto parts counter person assist from daughter) Driving: No ADL Assistance: Independent Instrumental ADL (IADL) Assistance: (assist from family at baseline.) Vocational/Occupation: Retired Fall within the last 6 months: No Activities of Daily Living Grooming Grooming: Where assessed: Other (Comment) (standing) Grooming: Level of assistance: Minimum Assist (set up task, min balance) Grooming: Assistance with: Safety LE Dressing LE Dressing: Where assessed: Sitting, Chair LE Dressing: Level of assistance: Maximum Assist (max task, min balance) LE Dressing: Assistance with: Don/doff R sock, Don/doff L sock, Thread RLE into pants, Thread LLE into pants, Pull up over hips, Fasteners, Safety Toilet Transfers Toilet Transfer From: Other (Comment) (standing) Toilet Transfer Type: To and from Toilet Transfer to: (chair with arms, simulated BSC) Toilet Transfer Technique: Ambulating Toilet Transfer: Equipment: Wheeled walker Toilet Transfers: Minimal assistance Toilet Transfers Comments: Min A d/t decreased force production, impaired balance, to control descent Pain Pain Assessment Pain Assessment: No/denies pain Cognition Cognition Overall Cognitive Status: Impaired Arousal/Alertness: Alert, Appropriate responses to stimuli Attention Span: Appears intact Memory: Decreased short term memory Current communication: Appears Intact Orientation : Oriented to person (oriented to place with options) Following Commands: Follows all commands and directions without difficulty Safety Judgment: Decreased awareness of need for assistance Awareness of Errors: Assistance required to identify errors made Insight: Decreased awareness of deficits Compliance/Behavior: Easy to engage Short Blessed Test What year is it now?: Correct What month is it now?: Correct Repeat this name and address after me: Adryan Rivera [address] [place] [address] Without looking at the clock, tell me what time it is: Correct-within one hour Count aloud backwards from 20-1: 1 Error Say the months of the year backwards in reverse order: 2 Errors Repeat the name and address I asked you to remember: 2 Errors Short Blessed Total Score: 10 Short Blessed Comments: Impaired 6 Clicks Daily Activity - 6 Clicks Putting on and taking off regular lower body clothing: A Little Bathing: A little Toileting: A little Putting on and taking off upper body clothing: None Personal Grooming: A little Eating Meals: None Total Score (range 6-24): 20 Score Interpretation: 20 Balance Static Sitting Balance Static Sitting-Balance Support: No upper extremity supported, Feet supported Static Sitting-Sitting Surface: Chair Static Sitting-Level of Assistance: Distant supervision Static Sitting-Comment/# of Minutes: for safety Dynamic Sitting Balance Dynamic Sitting-Balance Support: No upper extremity supported, Feet supported Dynamic Sitting-Balance: Forward lean, Reaching for objects, Reaching across midline Dynamic Sitting-Sitting Surface: Chair Dynamic Sitting-Level of Assistance: Close supervision Dynamic Sitting-Comments: for safety during LE dressing ADL Static Standing Balance Static Standing-Balance Support: Bilateral upper extremity supported (using w/w) Static Standing-Standing Surface: Floor Static Standing-Level of Assistance: Close supervision Static Standing-Comment/# of Minutes: for safety Dynamic Standing Balance Dynamic Standing-Balance Support: No upper extremity supported Dynamic Standing-Balance: Lateral lean, Reaching for objects, Reaching across midline Dynamic Standing-Standing Surface: Floor Dynamic Standing-Level of Assistance: Minimum assistance Dynamic Standing-Comments: for safety during standing grooming ADL Transfers Transfers Transfer: Yes Transfer 1 Transfer From 1: Sit Transfer Type 1: To and from Transfer to 1: Stand Technique 1: Sit to stand, Stand to sit Transfer Device 1: Wheeled walker Transfer Level of Assistance 1: Minimum Assist Trials/Comments 1: Min A d/t decreased force production, impaired balance, to control descent Transfers 2 Trials/Comments 2: Pt. engaged in functional room mobility with SPV using w/w. Bed Mobility Bed Mobility Bed Mobility: No (pt. found and left sitting in a recliner) RUE Assessment RUE Assessment RUE Assessment: Within Functional Limits LUE Assessment LUE Assessment LUE Assessment: Within Functional Limits Other Comments Other Comments Comments: Pt. seen for initial OT eval this date. Pt. educated on OT role and purpose of visit. Pt.verbalized understanding. Pt. educated on OT POC and discharge recs; pt. verbalized understanding. Pt. with no further questions. OT Goals Multi-Disciplinary Problems (from Occupational Therapy) Active Problems Problem: Dressings Lower Extremities Start Date: 09/09/21 Goal Start Date Expected End Date End Date STG - Patient to complete lower body dressing 09/09/21 09/16/21 -- Goal Details: With min A using AE PRN. Problem: Grooming Start Date: 09/09/21 Goal Start Date Expected End Date End Date STG - Patient will complete grooming 09/09/21 09/16/21 -- Goal Details: In standing at the sink with SPV. Problem: Transfers Start Date: 09/09/21 Goal Start Date Expected End Date End Date STG - Patient will perform toilet transfer 09/09/21 09/16/21 -- Goal Details: To a standard toilet with SPV. Problem: OT Misc Start Date: 09/09/21 Goal Start Date Expected End Date End Date OT LTG - Misc 1 09/09/21 10/14/21 -- Goal Details: Pt. Will perform all ADLs with SPV using AE/adaptive device PRN. For questions, please review the treatment team and contact the occupational therapist currently assigned to this patient. If an occupational therapist is not assigned to this patient, please call [phone]. * Yaniv Barton MD - 09/08/2021 12:57 PM CDT Daily Progress Note Division of Hospital Medicine Name: Barbara Chakraborty Today: September 08, 2021 : 1950 Age: 70 y.o. female Admit: 09/06/2021 Bed: [place] [id number] Subjective Chief complaint: STEFANO, weight gain, possible HF exacerbation Interval History: NAEO. Cr stable on current diuretic regimen. Hb stable. No overt bleeding symptoms. Objective Medications: Scheduled: amLODIPine, 10 mg, oral, Daily atorvastatin, 40 mg, oral, Daily famotidine, 20 mg, oral, Daily ferrous sulfate, 65 mg of elemental iron, oral, Daily with breakfast furosemide, 40 mg, intravenous, BID DIURETIC heparin, 5,000 Units, subcutaneous, Q8H SOL insulin glargine, 22 Units, subcutaneous, Nightly insulin lispro, 0-10 Units, subcutaneous, TID with meals insulin lispro, 0-5 Units, subcutaneous, Nightly insulin lispro, 7 Units, subcutaneous, TID with meals polyethylene glycol, 17 g, oral, Daily pregabalin, 150 mg, oral, Daily risperiDONE, 2 mg, oral, Nightly Infusions: PRN: ??? acetaminophen ??? capsaicin ??? dextrose OR dextrose ??? glucagon Vitals: 24hr Min/Max: Temp Min: 36.8 ??C (98.3 ??F) Max: 37.2 ??C (99 ??F) Pulse Min: 79 Max: 83 BP Min: 112/48 Max: 143/49 Resp Min: 18 Max: 20 SpO2 Min: 93 % Max: 98 % Most Recent: Vitals: 09/08/21 0845 BP: 112/48 Pulse: 80 Resp: 18 Temp: 36.9 ??C (98.4 ??F) SpO2: 93% Intake/Output Summary (Last 24 hours) at 09/08/2021 1257 Last data filed at 09/08/2021 1230 Gross per 24 hour Intake 540 ml Output 1925 ml Net -1385 ml Physical Exam: Constitutional: NAD, well developed, well nourished Eyes: PERRL, EOMI, anicteric ENT: NCAT, oropharynx normal, moist mucus membranes Lungs: Clear to auscultation in all lung cavanaugh, unlabored Cardiovascular: RRR, normal S1 and S2, no murmurs, unable to appreciate JVD GI: Soft, non-tender, non-distended, bowel sounds +, no organomegaly Skin: No new rashes, lesions or bruises on visible skin Extremities: Trace dependent LE edema Neurologic: AOx2, no focal deficits Psychiatric: Normal affect and mood Lab/Diagnostic Review: Recent Results (from the past 24 hour(s)) POCT glucose Collection Time: 09/07/21 5:08 PM Result Value Ref Range Glucose, POC 249 (H) 70 - 199 mg/dL POCT glucose Collection Time: 09/07/21 8:11 PM Result Value Ref Range Glucose, POC 264 (H) 70 - 199 mg/dL CBC with auto differential Collection Time: 09/07/21 8:41 PM Result Value Ref Range WBC 9.9 3.8 - 9.9 K/cumm Hgb 7.0 (L) 11.9 - 15.5 g/dL Hct 22.3 (L) 35.6 - 45.5 % Plt 246 150 - 400 K/cumm MPV 11.4 9.1 - 12.3 fL RBC 2.39 (L) 3.90 - 5.20 M/cumm MCV 93.3 81.3 - 96.4 fL MCH 29.3 27.1 - 33.3 pg MCHC 31.4 (L) 32.3 - 35.7 g/dL RDW CV 15.9 (H) 11.1 - 14.9 % RDW SD 53.8 (H) 35.7 - 48.1 fL NRBC abs 0.00 0.00 - 0.01 K/cumm Basic metabolic panel Collection Time: 09/07/21 8:41 PM Result Value Ref Range Sodium 140 135 - 145 mmol/L Potassium, pl 4.8 3.3 - 4.9 mmol/L Chloride 105 97 - 110 mmol/L CO2 24 22 - 32 mmol/L Anion gap 11 2 - 15 mmol/L BUN 42 (H) 8 - 25 mg/dL Creatinine 1.99 (H) 0.60 - 1.10 mg/dL Glucose 263 (H) 70 - 199 mg/dL Calcium 8.7 8.5 - 10.3 mg/dL Magnesium Collection Time: 09/07/21 8:41 PM Result Value Ref Range Magnesium 1.8 1.4 - 2.5 mg/dL Type and screen Collection Time: 09/07/21 8:41 PM Result Value Ref Range ABO Rh B Positive Regi, indirect Negative Differential, auto Collection Time: 09/07/21 8:41 PM Result Value Ref Range Neutrophil abs 6.2 1.7 - 6.5 K/cumm Imm gran abs 0.0 0.0 - 0.1 K/cumm Lymphocyte abs 2.8 0.8 - 3.3 K/cumm Monocyte abs 0.7 0.2 - 0.8 K/cumm Eosinophil abs 0.2 0.0 - 0.5 K/cumm Basophil abs 0.0 0.0 - 0.1 K/cumm Neutrophil pct 62.1 % Imm gran pct 0.2 % Lymphocyte pct 28.6 % Monocyte pct 6.9 % Eosinophil pct 1.9 % Basophil pct 0.3 % eGFR Collection Time: 09/07/21 8:41 PM Result Value Ref Range eGFR 27 (L) 90 - 130 mL/min/1.73 m2 POCT glucose Collection Time: 09/08/21 4:07 AM Result Value Ref Range Glucose, POC 222 (H) 70 - 199 mg/dL Check Sample Collection Time: 09/08/21 4:08 AM Result Value Ref Range ABO Rh B Positive POCT glucose Collection Time: 09/08/21 8:37 AM Result Value Ref Range Glucose, POC 234 (H) 70 - 199 mg/dL POCT glucose Collection Time: 09/08/21 12:30 PM Result Value Ref Range Glucose, POC 263 (H) 70 - 199 mg/dL Additional tests: I have reviewed the laboratory results. Imaging Results: XR Chest Pa Lateral 2 Views Narrative: EXAMINATION: XR CHEST PA LATERAL 2 VIEWS HISTORY: Peripheral edema COMPARISON: 09/02/2021 Impression: Minimally increased small right pleural effusion with mild right basilar atelectasis. No left pleural effusion. No pneumothorax. Cardiomediastinal silhouette is stable. Dictated by: Luan Colunga M.D. The radiology attending physician has personally reviewed this study, and had reviewed and/or edited this written report and agrees with it. Electronically signed by: Luci Faith M.D. ECG 12 lead Audie Austin MD 09/06/2021 5:49 PM ECG 12 lead Date/Time: 09/06/2021 5:48 PM Performed by: Audie Austin MD Authorized by: Demetri Del Toro IV, JARAD Rate: ECG rate: 87 Comments: Normal axis normal sinus rhythm. Rate 87. No STEMI. No change from previous which was done on August 08, 2021. Further workup in the ER. I have independently reviewed and interpreted the test(s)/imaging.. Assessment/Plan * Acute on chronic heart failure with preserved ejection fraction (HFpEF) (CMS/HCC) ([facility]) Assessment & Plan A: presents with increasing swelling, 6lb weight gain, daughter voicing concerns of exertional dyspnea/orthopnea as well. Last echo in 2019 grossly normal, per cards note had recent one with G1ddf. No ischemic hx or diuretic use. Has 1+ pitting edema in BL LE, no pulmonary edema on CXR, BNP 500. Renal function improved after 20 IV lasix and stable after 40 IV lasix. Plan: -Renal function stable after lasix 40 IV, will give 40 IV lasix BID today -Repeat TTE if able - telemetry, strict I/O Anemia Assessment & Plan A: Hb 7.1 from 9.7 1 month ago. 1+ blood in urine. Pt denies gross hematuria, epistaxis, melena, hematochezia, hematemesis. Low FeSat, ferritin decreased to 179. Recent normal B12/FA. Concerning for occult bleeding Plan: -Start oral iron supplementation, OP EGD/colonoscopy referral -Consented for blood transfusion, goal Hb > 7, give lasix 20 IV if giving blood STEFANO (acute kidney injury) ([facility]) ([facility]) Assessment & Plan A: known CKD, likely 2/2 dm. Baseline Cr ~1.4, follows with nephrology outpatient. Cr 2.1 on admission. In setting of suspected volume overload, improved after 20 IV lasix. FEUrea 27% consistent withpre-renal injury such as cardiorenal syndrome. Urinalysis with 1+ blood in setting of possible UTI. Plan: -Diuresis as per HF section -Daily BMP, strict I/O - hold nephrotoxic agents/renally dose medications Dementia ([facility]) Assessment & Plan A: reported baseline dementia, `AOX2-3. Corroborated by daughter who she lives with. Frequent hospitalizations this year. Plan: - currently at baseline neurological status - PT OT Eval Type 2 diabetes mellitus with diabetic neuropathy, with long-term current use of insulin ([facility]) ([facility]) Assessment & Plan A: Home regimen lantus 18, lispro 5 TID AC + SSI, had recently had trulicity held due to renal function. Follows with endocrinology outpatient. A1c 8.4. Plan: -Continue home statin -Increase glargine to 22U qS, lispro to 7U TID, continue SSI Schizoaffective disorder, bipolar type ([facility]) ([facility]) Assessment & Plan A: hx of schizoaffective disorder, follows with psych outpatient. Earlier in year had been on dailyhaldol, weaned off due to increased fatigue. - currently no active psychotic manic symptoms, mood is stable and pleasant - continue home risperdal 2mg BID Yaniv Barton Instructor - Division of Hospital Medicine * Cele Eller, PT - 09/08/2021 11:10 AM CDT Physical Therapy Physical Therapy Initial Assessment NOTE: This is a summary note for the north assessments completed during the evaluation session. For full details, review chart review for all flowsheets documented on by this physical therapist on . Vital signs documented in vital signs flowsheet. Assessment Assessment Prognosis: Good Plan Plan Plan : Discharge, If this is the last note, consider this the discharge summary PT Recommendation and Plan Recommendation/Plan PT Recommendation/Plan: Home with family, Home with 24 hour supervision, Home Health PT PT Frequency: One time visit (Discharge from this service) PT Equipment Recommended: None PT - OK to Discharge: Yes PT Evaluation Complete: Yes General Information General Chart Reviewed: Yes Session Type: Evaluation PT Received On: 09/08/21 Safe Environment: Arm Band Checked, Call Light within Reach, Notified RN, Bed Alarm placed and activated, Patient found in Supine (pt left sitting up in chair, alarm ni place) Subjective: Agreeable to Therapy Family/Caregiver Present: No Physical Therapy-Patient Goal: pt denies any acute care goals Prior Function Prior Function Level of [place]: Independent functional transfers, Independent with ambulation Lives With: Daughter Receives Help From: Family (remelt sugar boiler assist from daughter and granddaughter) Fall within the last 6 months: No Home Living Home Living Type of Home: House Home Layout: One level Home Access: Level entry Home Mobility Equipment: Wheeled walker, Single point cane (pt reports use of walker) Precautions Pain Pain Assessment Pain Assessment: No/denies pain Cognition Cognition Arousal/Alertness: Alert, Appropriate responses to stimuli Orientation : Oriented to person, Oriented to place Following Commands: Follows all commands and directions without difficulty 6 Clicks Basic Mobility - 6 Click [...] little Total 6 Click Score (range 6-24): 18 Score Interpretation: 18 Bed Mobility Bed Mobility Bed Mobility: Yes Bed Mobility 1 Bed Mobility From 1: Supine Bed Mobility Type 1: To Bed Mobility to 1: Edge of bed Level of Assistance 1: Standby Assist Transfers Transfers Transfer: Yes Transfer 1 Transfer From 1: Sit Transfer Type 1: To and from Transfer to 1: Stand Technique 1: Sit to stand, Stand to sit Transfer Device 1: Wheeled walker Transfer Level of Assistance 1: Standby Assist Balance Ambulation Ambulation Ambulation: Yes Ambulation 1 Distance (ft) 1: 150 Surface 1: Level tile Device 1: Wheeled walker Assistance 1: Standby Assist Gait: Requires verbal cues to 1: Pace activity, Improve upright posture Quality of Gait 1: decreased lanny, decreased step length Stairs Curbs RLE Assessment RLE Assessment RLE Assessment: Within Functional Limits LLE Assessment LLE Assessment LLE Assessment: Within Functional Limits Equipment Used Equipment Use Equipment Use Comments: gait belt not used Other Comments PT Goals Multi-Disciplinary Problems (from Physical Therapy) Active Problems Not on file Reviewed By Felicity Majano RN 09/07/21 0527 * Yaniv Barton MD - 09/07/2021 1:24 PM CDT Daily Progress Note Division of Hospital Medicine Name: Barbara Chakraborty Today: September 07, 2021 : 1950 Age: 70 y.o. female Admit: 09/06/2021 Bed: [id number] Subjective Chief complaint: STEFANO, weight gain, possible HF exacerbation Interval History: NAEO. Cr improving after diuretics. Hb dropped to 7.1. Denies hematochezia, epistaxis, hematemesis, melena, hematuria. Objective Medications: Scheduled: amLODIPine, 10 mg, oral, Daily atorvastatin, 40 mg, oral, Daily famotidine, 20 mg, oral, Daily furosemide, 40 mg, intravenous, Once [START ON 09/08/2021] furosemide, 40 mg, intravenous, BID DIURETIC heparin, 5,000 Units, subcutaneous, Q8H SOL insulin glargine, 0.25 Units/kg, subcutaneous, Nightly insulin lispro, 0-10 Units, subcutaneous, TID with meals insulin lispro, 0-5 Units, subcutaneous, Nightly insulin lispro, 5 Units, subcutaneous, TID with meals polyethylene glycol, 17 g, oral, Daily pregabalin, 150 mg, oral, Daily risperiDONE, 2 mg, oral, Nightly Infusions: PRN: ??? acetaminophen ??? capsaicin ??? dextrose OR dextrose ??? glucagon Vitals: 24hr Min/Max: Temp Min: 36.2 ??C (97.1 ??F) Max: 36.9 ??C (98.4 ??F) Pulse Min: 81 Max: 98 BP Min: 119/60 Max: 162/77 Resp Min: 14 Max: 16 SpO2 Min: 91 % Max: 100 % Most Recent: Vitals: 09/07/21 0830 BP: 162/77 Pulse: 83 Resp: 16 Temp: 36.9 ??C (98.4 ??F) SpO2: 96% No intake or output data in the 24 hours ending 09/07/21 1325 Physical Exam: Constitutional: NAD, well developed, well nourished Eyes: PERRL, EOMI, anicteric ENT: NCAT, oropharynx normal, moist mucus membranes Lungs: Clear to auscultation in all lung cavanaugh, unlabored Cardiovascular: RRR, normal S1 and S2, no murmurs, unable to appreciate JVD GI: Soft, non-tender, non-distended, bowel sounds +, no organomegaly Skin: No new rashes, lesions or bruises on visible skin Extremities: 1+ dependent LE edema Neurologic: AOx2, no focal deficits Psychiatric: Normal affect and mood Lab/Diagnostic Review: Recent Results (from the past 24 hour(s)) POCT glucose Collection Time: 09/06/21 2:44 PM Result Value Ref Range Glucose, POC 167 70 - 199 mg/dL Troponin I high-sensitivity series (baseline, 2hr, 4hr, 6hr) Collection Time: 09/06/21 5:27 PM Result Value Ref Range Trop I hs 5 <=17 ng/L Troponin I high-sensitivity 2-hour Collection Time: 09/06/21 7:56 PM Result Value Ref Range Trop I hs 4 <=17 ng/L Trop I hs delta -1 ng/L Trop I hs interp Insignificant POCT glucose Collection Time: 09/06/21 8:02 PM Result Value Ref Range Glucose, POC 187 70 - 199 mg/dL POCT glucose Collection Time: 09/07/21 12:07 AM Result Value Ref Range Glucose, POC 243 (H) 70 - 199 mg/dL POCT glucose Collection Time: 09/07/21 2:23 AM Result Value Ref Range Glucose, POC 237 (H) 70 - 199 mg/dL CBC with auto differential Collection Time: 09/07/21 2:25 AM Result Value Ref Range WBC 10.1 (H) 3.8 - 9.9 K/cumm Hgb 7.1 (L) 11.9 - 15.5 g/dL Hct 22.0 (L) 35.6 - 45.5 % Plt 229 150 - 400 K/cumm MPV 11.3 9.1 - 12.3 fL RBC 2.42 (L) 3.90 - 5.20 M/cumm MCV 90.9 81.3 - 96.4 fL MCH 29.3 27.1 - 33.3 pg MCHC 32.3 32.3 - 35.7 g/dL RDW CV 15.7 (H) 11.1 - 14.9 % RDW SD 51.8 (H) 35.7 - 48.1 fL NRBC abs 0.03 (H) 0.00 - 0.01 K/cumm Hemoglobin A1c Collection Time: 09/07/21 2:25 AM Result Value Ref Range Hgb A1C 8.4 (H) 4.0 - 5.6 % Estimated Average Glucose 194 mg/dL Differential, auto Collection Time: 09/07/21 2:25 AM Result Value Ref Range Neutrophil abs 6.8 (H) 1.7 - 6.5 K/cumm Imm gran abs 0.0 0.0 - 0.1 K/cumm Lymphocyte abs 2.2 0.8 - 3.3 K/cumm Monocyte abs 0.7 0.2 - 0.8 K/cumm Eosinophil abs 0.2 0.0 - 0.5 K/cumm Basophil abs 0.0 0.0 - 0.1 K/cumm Neutrophil pct 67.9 % Imm gran pct 0.4 % Lymphocyte pct 22.2 % Monocyte pct 7.4 % Eosinophil pct 1.7 % Basophil pct 0.4 % Urinalysis reflex to microscopic and culture Urine Collection Time: 09/07/21 5:38 AM Specimen: Urine Result Value Ref Range Color, ur Yellow Yellow Clarity, ur Turbid (A) Clear Specific gravity, ur 1.014 1.003 - 1.030 pH, urine 6.0 Protein, ur ql 2+ (A) Negative Glucose, ur ql Trace (A) Negative Ketones, ur Negative Negative Bilirubin, ur Negative Negative Blood, ur 1+ (A) Negative Urobilinogen, ur <2.0 <2.0 mg/dL Nitrite, ur Negative Negative Leukocyte esterase, ur 3+ (A) Negative UA reflex comment Reflex to microscopic UA will be performed. Sodium, urine, random Collection Time: 09/07/21 5:38 AM Result Value Ref Range Sodium, ur 65 mmol/L Creatinine, urine, random Collection Time: 09/07/21 5:38 AM Result Value Ref Range Creatinine Ur 82.9 mg/dL Urea nitrogen, urine, random Collection Time: 09/07/21 5:38 AM Result Value Ref Range Urea nitrogen, ur 487 mg/dL Urinalysis, microscopic only Collection Time: 09/07/21 5:38 AM Result Value Ref Range WBC, ur >50 (A) 0 - 5 /HPF RBC, ur 11-20 (A) 0 - 2 /HPF Yeast, ur 4+ (A) Hyaline casts, ur 6-10 0 - 10 /LPF Culture Reflex Comment Reflex to urine culture will be performed. POCT glucose Collection Time: 09/07/21 9:59 AM Result Value Ref Range Glucose, POC 243 (H) 70 - 199 mg/dL Basic metabolic panel, serum Collection Time: 09/07/21 11:24 AM Result Value Ref Range Sodium 144 135 - 145 mmol/L Potassium, sr 4.5 3.6 - 5.2 mmol/L Chloride 109 97 - 110 mmol/L CO2 26 22 - 32 mmol/L Anion gap 9 2 - 15 mmol/L BUN 41 (H) 8 - 25 mg/dL Creatinine 1.91 (H) 0.60 - 1.10 mg/dL Glucose 225 (H) 70 - 199 mg/dL Calcium 9.2 8.5 - 10.3 mg/dL eGFR Collection Time: 09/07/21 11:24 AM Result Value Ref Range eGFR 28 (L) 90 - 130 mL/min/1.73 m2 POCT glucose Collection Time: 09/07/21 12:40 PM Result Value Ref Range Glucose, POC 246 (H) 70 - 199 mg/dL Additional tests: I have reviewed the laboratory results. Imaging Results: XR Chest Pa Lateral 2 Views Narrative: EXAMINATION: XR CHEST PA LATERAL 2 VIEWS HISTORY: Peripheral edema COMPARISON: 09/02/2021 Impression: Minimally increased small right pleural effusion with mild right basilar atelectasis. No left pleural effusion. No pneumothorax. Cardiomediastinal silhouette is stable. Dictated by: Luan Colunga M.D. The radiology attending physician has personally reviewed this study, and had reviewed and/or edited this written report and agrees with it. Electronically signed by: Luci Faith M.D. ECG 12 lead Audie Austin MD 09/06/2021 5:49 PM ECG 12 lead Date/Time: 09/06/2021 5:48 PM Performed by: Audie Austin MD Authorized by: Demetri Del Toro IV, RUG UNDERLAY MACHINE OPERATOR Rate: ECG rate: 87 Comments: Normal axis normal sinus rhythm. Rate 87. No STEMI. No change from previous which was done on August 08, 2021. Further workup in the ER. I have independently reviewed and interpreted the test(s)/imaging.. Assessment/Plan * Acute on chronic heart failure with preserved ejection fraction (HFpEF) (CMS/HCC) ([facility]) Assessment & Plan A: presents with increasing swelling, 6lb weight gain, daughter voicing concerns of exertional dyspnea/orthopnea as well. Last echo in 2019 grossly normal, per cards note had recent one with G1ddf. No ischemic hx or diuretic use. Has 1+ pitting edema in BL LE, no pulmonary edema on CXR, BNP 500. Plan: -Renal function improved with 20 IV lasix, give 40 IV lasix now -Repeat TTE if able - telemetry, strict I/O Anemia Assessment & Plan A: Hb 7.1 from 9.7 1 month ago. 1+ blood in urine. Pt denies gross hematuria, epistaxis, melena, hematochezia, hematemesis. Low FeSat, ferritin pending. Recent normal B12/FA. Plan: -Follow up iron studies, monitor for gross bleeding -Consented for blood transfusion, goal Hb > 7, give lasix 20 IV if giving blood STEFANO (acute kidney injury) (CMS/HCC) ([facility]) Assessment & Plan A: known CKD, likely 2/2 dm. Baseline Cr ~1.4, follows with nephrology outpatient. Cr 2.1 on admission. In setting of suspected volume overload, improved after 20 IV lasix. FEUrea 27% consistent withpre-renal injury such as cardiorenal syndrome. Urinalysis with 1+ blood in setting of possible UTI. Plan: -Diuresis as per HF section -Daily BMP, strict I/O - hold nephrotoxic agents/renally dose medications Dementia ([facility]) Assessment & Plan A: reported baseline dementia, `AOX2-3. Corroborated by daughter who she lives with. Frequent hospitalizations this year. Plan: - currently at baseline neurological status - PT OT Eval Type 2 diabetes mellitus with diabetic neuropathy, with long-term current use of insulin ([facility]) ([facility]) Assessment & Plan A: Home regimen lantus 18, lispro 5 TID AC + SSI, had recently had trulicity held due to renal function. Follows with endocrinology outpatient. A1c 8.4. Plan: -Continue home statin -Continue home regimen, uptitrate as needed Schizoaffective disorder, bipolar type ([facility]) ([facility]) Assessment & Plan A: hx of schizoaffective disorder, follows with psych outpatient. Earlier in year had been on dailyhaldol, weaned off due to increased fatigue. - currently no active psychotic manic symptoms, mood is stable and pleasant - continue home risperdal 2mg BID Yaniv Barton Instructor - Division of Hospital Medicine * Fany Michael RN - 09/07/2021 10:02 AM CDT CM Initial Assessment Interview Note Information Obtained From: Adult child Name: Areli Gayle, daughter [phone] (09/07/21 0946) Admission Source: non-healthcare origin Impression: Patient admitted to ED from PCP office for evaluation of kidney disease with fluid retention. Plan Includes: CM will assist patient with d/c planning. Role of CM explained to patient and patient's daughter Areli. Primary Source of Transportation: daughter Areli Health Insurance Coverage: Medicare A/B, Medicaid Prescription Coverage: yes Pharmacy: Patient does not recall Primary Care Provider: Cherelle Corcoran MD Prior to Admission: Primary Caregiver: Family Support System: Children Support system contact info (name, phone, availablity): Areli Gayle, daughter [phone] and Malena Gayle. daughter [phone] Home Care Services: No Durable Medical Equipment: None Living Arrangements: Children Type of Residence: Private residence Steps in home? : No steps inside or outside (09/07/21945) Potential discharge needs include: Home Health: jail, Physical therapy, Occupational therapy (Patient may need home health PT/OT- pending eval) (09/07/21945) Dialysis: no Behavioral Health Services: unknown Patient expects to be Discharged to: Private residence, (09/07/21945) Additional Information: Per daughter Areli, patient was recently discharged on Thursday from [facility] for short term rehab. Patient was at [facility] prior to that. Patient currently lives with her daughter Areli. Patient's daughters are not interested in SNF placement at / due to their negative experience in the facilities. Areli is her primary caregiver. She is interested in Home Health SN checkups and PT/OT. CM will send referral to [facility] per Areli's request. Patient uses wheeled walker at home and daughter reports she gets around well at home. Patient's Identified Problem/Goal Problem: Ensure acute medical [...] Collaboration with patient, MD, direct care nurse, Entrepreneurship Program Director, Nurse Coordinator and other members of the health care team to assure needed interventions completed. 2. Return patient to optimal level of self-care post discharge. 3. Manager Managed Backup Services will follow for Discharge Planning - interventions as needed 4. Anticipated level of care at discharge 5. Planned Discharge Disposition Based on a comprehensive family assessment, assistance with instrumental activities of daily livingafter discharge will be provided by Areli Through the course of our work I determined that the Areli possesses the skill and ability to provide and monitor the care of the patient when he or she returns home. Areli has the capacity to provide/monitor/arrange for the care of the patient. Finally, we determined that Areli has the knowledge of available resources and that combining them with their existing resources will suffice to sustain and care for the patient when he or she returns home. The treatment team is aware of this information. All are in agreement with the aftercare plan. Fany Gerber RN documented in this encounter H&P Notes * Sagar Moreno MD - 09/06/2021 10:30 PM CDT History and Physical Division of Hospital Medicine Name: Barbara Chakraborty Today: September 06, 2021 : 1950 Age: 70 y.o. female Subjective Ms. Chakraborty is a 70 y.o. female with chief complaint of STEFANO, volume overload. HPI: Ms. Barbara Chakraborty is a 70 year old lady with a pmh of DM2, schizoaffective disorder, and dementia (baseline AOx2-3) who presented to the ED after seeing her primary care doctor with labs showing STEFANO and exam concerning for volume overload. Patient had recently been admitted until 08/14 for confusion and weakness, where she had been discharged to a SNF. She returned home with the daughter about a week ago, but daughter has noticed progressive fatigue, swelling, shortness of breath with exertion. They went to their PCP which showed a 6lb weight gain, Cr up to 2.1 (previous baseline around 1.4.) She was directed to the ED for c/f of HF and STEFANO on CKD. On evaluation in the ED pt resting comfortably, AOx2. Vitals were stable with no oxygen requirement. Labs notable from BNP 522, Creat 2.1, and otherwise normal chemistry. A CXR revealed slight increased in previously small pleural effusions. Pt was given 20mg IV lasix and admitted for further management. Pt denied fever, chills, shortness of breath at rest, or any pain. She does feel she has had problems with swelling in her legs. She denies orthopnea but she also reports she does not like to lie flat at all and always sleeps at an incline. Story corroborated via phone with daughter Ursula. Past Medical History: Diagnosis Date ??? Arthritis [...] File Prior to Encounter Medication Sig ??? amLODIPine (NORVASC) 10 mg tablet Take 10 mg by mouth daily ??? atorvastatin (LIPITOR) 40 mg tablet Take 1 tablet (40 mg total) by mouth daily ??? BD Arlyn 2nd Gen Pen Needle 32 gauge x 5/32 needle USE TO INJECT BASAGLAR EVERY NIGHT AT BEDTIME ??? blood pressure monitor kit Check BP as instructed ??? capsaicin (ZOSTRIX) 0.025 % cream Apply topically 2 (two) times a day ??? conner.stocking,thigh,reg,med misc Wear as much as possible ??? dulaglutide (TRULICITY) 0.75 mg/0.5 mL pen injector Inject 0.5 mL (0.75 mg total) under the skin once a week ??? famotidine (PEPCID) 40 mg tablet Take 1 tablet (40 mg total) by mouth daily ??? glucose 4 gram chewable tablet Take 4 tablets (16 g total) by mouth as needed for low blood sugar (less than 70) and let Dr. Corcoran know! ??? insulin glargine (LANTUS, SEMGLEE) 100 unit/mL vial for injection Inject 18 Units under the skin nightly (Patient taking differently: Inject 15 Units under the skin nightly) ??? insulin lispro (HumaLOG, ADMELOG) 100 unit/mL vial for injection Inject 5.31 Units under the skin 3 (three) times a day with meals ??? insulin lispro (HumaLOG, ADMELOG) 100 unit/mL vial for injection Inject 0-10 Units under the skin 3 (three) times a day with meals ??? insulin lispro (HumaLOG, ADMELOG) 100 unit/mL vial for injection Inject 0-5 Units under the skin nightly ??? lancets misc Check blood sugar up to 3 times a day ??? lidocaine (LIDODERM) 5 % Place 1 patch on the skin daily Apply to painful area 12 hours per day, remove for 12 hours. ??? miscellaneous medical supply (Blood Pressure Cuff) misc Use to check blood pressure daily ??? multivitamin with minerals tablet Take 1 tablet by mouth daily ??? pvvgeztz-yuxrduyyq-xgcLDJWHfknhi (MAXITROL) 3.5mg/mL-10,000 unit/mL-0.1 % ophthalmic suspension ??? OneTouch Verio test strips strip TEST [place] 3 times a day ??? [DISCONTINUED] meclizine (ANTIVERT) 25 mg tablet ??? [DISCONTINUED] omeprazole (PriLOSEC) 20 mg capsule [...] Illness. Objective Vitals: 24hr Min/Max: Temp Min: 36.1 ??C (97 ??F) Max: 36.2 ??C (97.1 ??F) Pulse Min: 82 Max: 98 BP Min: 119/60 Max: 160/56 Resp Min: 14 Max: 18 SpO2 Min: 91 % Max: 100 % Most Recent Vitals: Vitals: 09/06/21 2130 BP: 146/70 Pulse: 87 Resp: Temp: SpO2: 100% No intake or output data in the 24 hours ending 09/06/212202 Physical Exam Constitutional: NAD, well developed, well nourished Eyes: PERRL, EOMI, anicteric ENT: NCAT, oropharynx normal, moist mucus membranes Lungs: Clear to auscultation in all lung cavanaugh, unlabored Cardiovascular: RRR, normal S1 and S2, no murmurs, no JVD GI: Soft, non-tender, non-distended, bowel sounds +, no organomegaly Skin: No new rashes, lesions or bruises on visible skin Extremities: 1+ dependent LE edema Lymph: No cervical, supraclavicular, axillary or inguinal adenopathy Neurologic: AOx2 (doesn't know president, thinks is in [place] but knows its [facility]) Psychiatric: Normal affect and mood I have reviewed the patient's vital signs. Lab/Diagnostic Review: Recent Results (from the past 36 hour(s)) Pro B-type natriuretic peptide Collection Time: 09/06/21 10:19 AM Result Value Ref Range NT-proBNP 522 (H) <=300 pg/mL Comprehensive metabolic panel Collection Time: 09/06/21 10:19 AM Result Value Ref Range Sodium 143 135 - 145 mmol/L Potassium, pl 4.6 3.3 - 4.9 mmol/L Chloride 109 97 - 110 mmol/L CO2 23 22 - 32 mmol/L Anion gap 11 2 - 15 mmol/L BUN 50 (H) 8 - 25 mg/dL Creatinine 2.10 (H) 0.60 - 1.10 mg/dL Glucose 247 (H) 70 - 199 mg/dL Calcium 9.1 8.5 - 10.3 mg/dL Bilirubin, total 0.2 0.1 - 1.2 mg/dL Protein, pl 7.1 6.5 - 8.5 g/dL Albumin 3.6 3.5 - 5.0 g/dL Alk phos 134 (H) 40 - 130 Units/L ALT 17 7 - 45 Units/L AST 17 10 - 45 Units/L eGFR Collection Time: 09/06/21 10:19 AM Result Value Ref Range eGFR 25 mL/min/1.73 m2 POCT glucose Collection Time: 09/06/21 2:44 PM Result Value Ref Range Glucose, POC 167 70 - 199 mg/dL Troponin I high-sensitivity series (baseline, 2hr, 4hr, 6hr) Collection Time: 09/06/21 5:27 PM Result Value Ref Range Trop I hs 5 <=17 ng/L Troponin I high-sensitivity 2-hour Collection Time: 09/06/21 7:56 PM Result Value Ref Range Trop I hs 4 <=17 ng/L Trop I hs delta -1 ng/L Trop I hs interp Insignificant POCT glucose Collection Time: 09/06/21 8:02 PM Result Value Ref Range Glucose, POC 187 70 - 199 mg/dL I have reviewed the laboratory results. Imaging Results: XR Chest Pa Lateral 2 Views Narrative: EXAMINATION: XR CHEST PA LATERAL 2 VIEWS HISTORY: Peripheral edema COMPARISON: 09/02/2021 Impression: Minimally increased small right pleural effusion with mild right basilar atelectasis. No left pleural effusion. No pneumothorax. Cardiomediastinal silhouette is stable. Dictated by: Luan Colunga M.D. The radiology attending physician has personally reviewed this study, and had reviewed and/or edited this written report and agrees with it. Electronically signed by: Luci Faith M.D. ECG 12 lead Audie Austin MD 09/06/2021 5:49 PM ECG 12 lead Date/Time: 09/06/2021 5:48 PM Performed by: Audie Austin MD Authorized by: Demetri Del Toro IV, RUG UNDERLAY MACHINE OPERATOR Rate: ECG rate: 87 Comments: Normal axis normal sinus rhythm. Rate 87. No STEMI. No change from previous which was done on August 08, 2021. Further workup in the ER. Assessment/Plan STEFANO (acute kidney injury) (CMS/HCC) ([facility]) Assessment & Plan Pt with known CKD, likely 2/2 dm. Baseline Cr ~1.4, follows with nephrology outpatient. - presenting with Cr up to 2.1, has had multiple recent fluctuations this year. Slightly overloadedon exam, c/f cardiorenal presentation and no other etiology clear from hx (no new meds, eating/drinking well reportedly.) - as per below, concern for hfpEF, more swollen on exam, 6lb weight gain per pcp PLAN - will obtain UA, urine sodium/urea/Cr - HF mgmt as below - s/p lasix IV 20mg IV in ed, repeat Cr in am before further diuresis - hold nephrotoxic agents/renally dose medications Type 2 diabetes mellitus with diabetic neuropathy, with long-term current use of insulin ([facility]) ([facility]) Assessment & Plan Home regimen most recnetly ast lantus 18, lispro 5 TID AC + SSI, had recently had trulicity held. Follows with endocrinology outpatient - sugars poorly controlled in past, has had R toe amputation previously - 247 on admission here, will resume home regimen as above and ctm. Daughter requesting endo consult as she had discussed this with outpatient international tax manager - repeat A1c - resume home statin, not currently on feliciano due to kidney function * Acute on chronic heart failure with preserved ejection fraction (HFpEF) ([facility]) ([facility]) Assessment & Plan Pt with increasing swelling, 6lb weight gain, [...] watch creatinine closely - telemetry, strict I/O Dementia ([facility]) Assessment & Plan Pt with reported baseline dementia, `AOX2-3. Corroborated by daughter who she lives with. Frequent hospitalizations this year. - currently at baseline neurological status - PT OT Eval Schizoaffective disorder, bipolar type ([facility]) ([facility]) Assessment & Plan Pt with hx of schizoaffective disorder, follows with psych outpatient. Earlier in year had been on daily haldol, weaned off due to increased fatigue. - currently no active psychotic manic symptoms, mood is stable and pleasant - continue home risperdal 2mg BID documented in this encounter Procedure Notes * Elder Felipe RN - 09/11/2021 10:48 PM CDT Vascular Access Nurse: Procedure Note Summary of treatment provided to patient today is as follows : . Vascular Access Documentation (last 4 hours) [facility] Additional Procedures Row Name 09/11/21 7902 Procedures Line Type Peripheral -KP Time in 2244 -KP Time out 2254 -KP Time Calculation (min) 10 min -KP Vascular Access Procedures Difficult IV start -KP Peripheral IV 09/11/21 20 G Right Wrist IV Properties Placement Date: 09/11/21 -KP Placement Time: 2246KP Type: Angiocath -KP Size (Gauge): 20 G -KP Location Orientation: Right -KP Location: Wrist -KP Site Prep: Chlorhexidine -KP ComfortMeasures: Distraction;Position of comfort -KP Local Anesthetic: None -KP Technique: Ultrasound guidance -KP Inserted by: greg lynn rn -KP Insertion attempts: 1 -KP Patient Tolerance: Tolerated well -KP Site Assessment Clean and dry -KP IV Line Status Single Blood return noted;Flushes easily;Saline locked -KP Dressing Type Transparent -KP Dressing Status New;Clean, dry, intact;Occlusive -KP Dressing Intervention Label applied;Dressing changed -KP Dressing Change Due 09/18/21 -KP User [place] (r) = Recorded By, (t) = Taken By, (c) = Cosigned By Initials Name KP Elder Felipe RN Plan: Follow up: Elder Felipe RN documented in this encounter Consult Notes * Ezio Ellis RD - 09/15/2021 1:03 PM CDTAssociated Order(s): IP CONSULT TO NUTRITION SERVICES Nutrition Assessment Reason for Assessment: Follow Up Encounter Date: 09/15/21 1:03 PM Patient is a 70 y.o. female with chief complaint of STEFANO and volume overload. LOS is 8 days. HPI: Patient admitted with STEFANO and volume overload. PMH includes: dementia, schizoaffective disorder and DM2. Objective Past Medical History: Diagnosis Date ??? Arthritis ??? Depression ??? Diabetic neuropathy (CMS/HCC) (HCC) ??? Hyperlipidemia ??? Hypertension ??? Schizophrenia (HCC) ??? Type 2 diabetes mellitus (HCC) Past Surgical History: Procedure Laterality Date ??? SECTION Right right foot ??? TOE AMPUTATION Right 01/06/2020 4th toe amp/ foot debridement/ Dr. Anat Pelayo Social History Tobacco Use ??? Smoking status: Never Smoker ??? Smokeless tobacco: Never Used Substance Use Topics ??? Alcohol use: Not Currently Family History Problem Relation Age of Onset ??? Stomach cancer Father Anthropometrics: Wt Readings from Last 3 Encounters: 09/15/21 71.5 kg (157 lb 9.6 oz) 09/06/21 73.3 kg (161 lb 8 oz) 09/02/21 70.5 kg (155 lb 8 oz) Anthropometrics Weight: 71.5 kg (157 lb 9.6 oz) Admission Weight : 73.4 kg Weight Change: -3.51 kg (-7.74 lbs) IBW/kg (Calculated) : 49.9 kg Height: 157.5 cm (5' 2 ) Weight in (lb) to have BMI = 25: 136.4 BMI (Calculated): 28.8 Nutrition Needs Calculations: Calculated Energy Needs Using Equations Weight: 71.5 kg (157 lb 9.6 oz) Height: 157.5 cm (5' 2 ) Estimated Protein Needs Type of Weight Used for Estimated Protein : [place] Protein Needs Based on g/k.2 Total Protein Estimated Needs (gm): 59.88 Kcal/kg Type of Weight Used for Estimated Kcals: [place] Kcal/k Total Kcal/kg Estimated Needs : 1497 Vital Signs: BP: 125/51 Temp: 36.6 ??C (97.9 ??F) Pulse: 65 Resp: 16 SpO2: 98 % Medications: Scheduled Meds: atorvastatin, 40 mg, oral, Daily carvediloL, 12.5 mg, oral, BID with meals (bkfst, dinner) famotidine, 20 mg, oral, Daily ferrous sulfate, 65 mg of elemental iron, oral, Daily with breakfast furosemide, 40 mg, intravenous, Q12H SOL heparin, 5,000 Units, subcutaneous, Q8H SOL insulin glargine, 25 Units, subcutaneous, Nightly insulin lispro, 0-10 Units, subcutaneous, TID with meals insulin lispro, 0-5 Units, subcutaneous, Nightly insulin lispro, 8 Units, subcutaneous, TID with meals metOLazone, 2.5 mg, oral, Daily polyethylene glycol, 17 g, oral, Daily pregabalin, 150 mg, oral, Daily risperiDONE, 2 mg, oral, Nightly Continuous Infusions: PRN Meds: ??? acetaminophen ??? capsaicin ??? dextrose OR dextrose ??? glucagon Lab Review: Sodium Date Value Ref Range Status 09/14/2021 145 135 - 145 mmol/L Final Potassium, pl Date Value Ref Range Status 09/14/2021 4.5 3.3 - 4.9 mmol/L Final BUN Date Value Ref Range Status 09/14/2021 59 (H) 8 - 25 mg/dL Final Creatinine Date Value Ref Range Status 09/14/2021 2.33 (H) 0.60 - 1.10 mg/dL Final Albumin Date Value Ref Range Status 09/12/2021 3.2 (L) 3.5 - 5.0 g/dL Final Magnesium Date Value Ref Range Status 09/14/2021 2.1 1.4 - 2.5 mg/dL Final Calcium Date Value Ref Range Status 09/14/2021 9.4 8.5 - 10.3 mg/dL Final Lab Results Component Value Date HGBA1C 8.4 (H) 09/07/2021 HDL 33 (L) 09/10/2021 LDLCALC 20 09/10/2021 CHOL 84 09/10/2021 TRIG 153 (H) 09/10/2021 Nursing Assessment: Intake/Output Summary (Last 24 hours) at 09/15/2021 1303 Last data filed at 09/15/2021 0307 Gross per 24 hour Intake -- Output 1000 ml Net -1000 ml Gastrointestinal Gastrointestinal (WDL): Within Defined Limits Abdomen Inspection: Soft, Nondistended Bowel Sounds (All Quadrants): Active Palpation: Nontender Last BM Date: 09/13/21 Passing Flatus: Yes GI Symptoms: None Gastrointestinal Additional Assessments: No Last BM Date: 09/13/21 Timoteo Scale Score: 19 Skin Integrity: Intact Edema: Moderate pitting, indentation subsides rapidly Dietary Orders (From admission, onward) Start Ordered 09/07/21 1300 Oral Nutrition Supplements Select Supplement: Glucerna Shake - Fox, VARY/multiple Flavor 3 times daily Question Answer Comment Select Supplement: Glucerna Shake - Fox Select Supplement: VARY/multiple Flavor 09/07/21 1032 09/07/21 0108 Adult Diet Restricted; 2 GM Sodium; Consistent Carbohydrate Diet effective now Question Answer Comment ([facility]) Diet type Restricted Fat / Sodium Restriction: 2 GM Sodium Diabetic: Consistent Carbohydrate 09/07/21 0107 Impression: RD consult for diet education. Reports a good appetite. Denies any N/V/D/C. NUTRITION DIAGNOSIS Nutrition Diagnosis 1: Food and nutrition-related knowledge deficit Related to: Lack of education Evidenced by: Patient interview INTERVENTION Educated patient on a 2gm Sodium Diet. Discussed common foods high in sodium. Discussed choosing fresh or frozen fruits and vegetables and fresh meats. Discussed avoiding pre-packaged foods, canned foods, and frozen dinners. Educated pt on label reading and discussed sodium-free flavoring tips. Follow up for patient family education, pt asking appropriate questions but given dementia would bebeneficial to provide additional education to family. GOALS / MONITORING: Goals: Patient/caregiver able to teach back understanding of role of diet in disease process prior to discharge Interventions: Education Monitoring and Evaluation: PO intake Ezio Ellis MS, RD, LD, [facility] [phone] Weekend / Consult [phone] * Kevin Cole MD - 09/12/2021 8:03 PM CDTAssociated Order(s): IP CONSULT TO NEPHROLOGY NEPHROLOGY INITIAL CONSULTATION NOTE REASON FOR CONSULT: volume overload in CRF4, managment and OP f/u, f/b renal here REQUESTING PROVIDER: Hattie Castro MD CHIEF COMPLAINT: HPI: Ms. Barbara Chakraborty is a 70 year old lady with a pmh of DM2, schizoaffective disorder, and dementia (baseline AOx2-3) who presented to the ED after seeing her primary care doctor with labs showing STEFANO and exam concerning for volume overload. Daughter has noticed progressive fatigue, swelling, shortness of breath with exertion for the last week. They went to their PCP which showed a 6lb weight gain, Cr up to 2.1 (previous baseline around 1.4.) She was directed to the ED for c/f STEFANO on CKD withvolume overload. Pt has presumed diabetic nephropathy. Baseline Cr is 1.4 - 1.6. Primary clinical rehabilitation coordinator was Dr. Ryan, last seen in 02/2021 when he increase the dose of lisinopril to 20 mg daily for proteinuria of > 5 G which was improving to 1.5 G after (in ). She also mentioned that for her LOW, she was taking motrin 2 tabs twice a week for 3 months before hospital admissions in July. Patient had recently been admitted to [facility] 07/31-08/04 for falls and STEFANO (peak Cr 3.96). Admitted to [facility] from 08/07 until 08/14 for confusion and weakness, found to have Cr 2.36 which was improved 1.65 after IVF hydration. She also found to have COVID and then she had been discharged to a SNF. She returned home with the daughter about a week ago. In [facility], Cr on admission was 2.1. TTE showed EF 69%, otherwise stable. US ruled out cirrhosis and hydronephrosis, IVC size was normal. Pt was being treated with lasix because of volume overload. Cr slight uptrending to 2.23 initially. But now Cr fluctuating around 1.9-2. Pt was on lasix 40 mg daily for the last 3 days. Renal consultation is requested for the management of volume overload. Past Medical History: Diagnosis Date ??? Arthritis ??? Depression ??? Diabetic neuropathy (CMS/HCC) (HCC) ??? Hyperlipidemia ??? Hypertension ??? Schizophrenia (HCC) ??? Type 2 diabetes mellitus (HCC) Past Surgical History: Procedure Laterality Date ??? SECTION Right right foot ??? TOE AMPUTATION Right 01/06/2020 4th toe amp/ foot debridement/ Dr. Anat Pelayo Medications Prior to Admission Medication Sig Dispense Refill Last Dose ??? amLODIPine (NORVASC) 10 mg tablet Take 10 mg by mouth daily ??? atorvastatin (LIPITOR) 40 mg tablet Take [...] week 2 mL 0 ??? famotidine (PEPCID) 40 mg tablet Take 1 tablet (40 mg total) by mouth daily 90 tablet 3 ??? glucose 4 gram chewable tablet Take 4 tablets (16 g total) by mouth as needed for low blood sugar (less than 70) and let Dr. Corcoran know! 50 tablet 0 ??? insulin glargine (LANTUS, SEMGLEE) 100 unit/mL vial for injection Inject 18 Units under the skin nightly (Patient taking differently: Inject 15 Units under the skin nightly) 10 mL ??? insulin lispro (HumaLOG, ADMELOG) 100 unit/mL vial for injection Inject 5.31 Units under the skin 3 (three) times a day with meals 10 mL ??? insulin lispro (HumaLOG, ADMELOG) 100 unit/mL vial for injection Inject 0-10 Units under the skin 3 (three) times a day with meals 10 mL ??? insulin lispro (HumaLOG, ADMELOG) 100 unit/mL vial for injection Inject 0-5 Units under the skin nightly 10 mL ??? lancets [facility] Check blood sugar up to 3 times a day 100 each 3 ??? lidocaine (LIDODERM) 5 % Place 1 patch on the skin daily Apply to painful area 12 hours per day, remove for 12 hours. 90 patch 1 ??? miscellaneous medical supply (Blood Pressure Cuff) [facility] Use to check blood pressure daily 1 each 1 ??? multivitamin with minerals tablet Take 1 tablet by mouth daily ??? dggokyjj-vdoimerme-ovcCCNKMjfgvi (MAXITROL) 3.5mg/mL-10,000 unit/mL-0.1 % ophthalmic suspension ??? OneTouch Verio test strips strip TEST [place] [facility] 3 times a day amLODIPine, 10 mg, oral, Daily atorvastatin, 40 mg, oral, Daily famotidine, 20 mg, oral, Daily ferrous sulfate, 65 mg of elemental iron, oral, Daily with breakfast furosemide, 40 mg, intravenous, BID DIURETIC heparin, 5,000 Units, subcutaneous, Q8H SOL insulin glargine, 25 Units, subcutaneous, Nightly insulin lispro, 0-10 Units, subcutaneous, TID with meals insulin lispro, 0-5 Units, subcutaneous, Nightly insulin lispro, 8 Units, subcutaneous, TID with meals polyethylene glycol, 17 g, oral, Daily pregabalin, 150 mg, oral, Daily risperiDONE, 2 mg, oral, Nightly No Known Allergies Social History Socioeconomic History ??? Marital status: Single Spouse name: Not on file ??? Number of children: Not on file ??? Years of education: Not on file ??? Highest education level: Not on file Occupational History ??? Not on file Tobacco Use ??? Smoking status: Never Smoker ??? Smokeless tobacco: Never Used Substance and Sexual Activity ??? Alcohol use: Not Currently ??? Drug use: Never ??? Sexual activity: Defer Other Topics Concern ??? Not on file Social History Narrative Originally From [place] Grew up with her mom and dad. 12th grade - graduated. [employer]. [employer] - none. Rastafarian. I never worked. Single. Social Determinants of [...] No ??? Lack of Transportation (Non-Medical): No Physical Activity: Not on file Stress: Not on file Social Connections: Socially Isolated ??? Frequency of Communication with Friends and Family: More than three times a week ??? Frequency of Social Gatherings with Friends and Family: More than three times a week ??? Attends Yazidi Services: Never ??? Active Member of Clubs or Organizations: No ??? Attends Club or Organization Meetings: Never ??? Marital Status: Intimate Partner Violence: Not on file Housing Stability: Low Risk ??? Unable to Pay for Housing in the Last Year: No ??? Number of Places Lived in the Last Year: 2 ??? Unstable Housing in the Last Year: No Family History Problem Relation Age of Onset ??? Stomach cancer Father REVIEW OF SYSTEMS: As per HPI. All other systems are negative. Constitutional: No Weight Change, No Fever, No Chills, No Night Sweats, No Fatigue, No Malaise ENT/Mouth: No Hearing Changes, No Nasal Congestion, No Sinus Pain, No Hoarseness, No sore throat Eyes: No Eye Pain, No Eyelid Swelling, No Redness, No Vision Changes Cardiovascular: No Chest Pain, No Dyspnea on Exertion, No Orthopnea, No Claudication, No Palpitations, No Edema Respiratory: No Cough, No Sputum, No Shortness of Breath, No Hemoptysis Gastrointestinal: No Nausea/Vomiting, No Diarrhea, No Abdominal Pain, No Dysphagia, No Hematochezia/Melena Genitourinary: No Dysuria, No Urinary Frequency, No Hematuria, No Urinary Incontinence, No Nocturia. Musculoskeletal: No Arthralgias, No Myalgias, No Joint Swelling, No Joint Stiffness, No Back Pain Skin: No Skin Lesions, No Rash, No Pruritis, No Hair Changes Neuro: No Confusion, No Weakness, No Numbness, No Paresthesias, No Syncope, No Recent Falls Heme/Lymph: No Bruising, No Bleeding, No Lymphadenopathy PHYSICAL EXAM: Vitals: 24hr Min/Max: Temp Min: 36.4 ??C (97.5 ??F) Max: 37.1 ??C (98.7 ??F) Pulse Min: 77 Max: 83 BP Min: 100/50 Max: 131/57 Resp Min: 16 Max: 16 SpO2 Min: 96 % Max: 98 % Most Recent: BP 128/56 Pulse 78 Temp 36.6 ??C (97.9 ??F) (Oral) Resp 16 Ht 157.5 cm (5' 2 ) Wt 73.7 kg(162 lb 7.7 oz) SpO2 96% BMI 29.72 kg/m?? I/O last 2 completed shifts: In: 250 [P.O.:250] Out: - No intake/output data recorded. General Awake, alert, lying in bed HEENT: moist oral mucosa. CV: heart sounds RRR, no murmurs, rub or gallop PULM: clear to auscultation, no rales. Abdomen: Soft, non-tender, BS present. MSK: 2+ BL pedal edema, symmetric LE SKIN: no rashes Neuro: AOx3, no focal motor deficits Psych: appropriate affect Dialysis Access Exam: NA Lab/Radiology/Diagnostic Review: Laboratory review: Lab results in the last 24 hours: Recent Results (from the past 24 hour(s)) CBC with auto differential Collection Time: 09/11/21 10:35 PM Result Value Ref Range WBC 10.0 (H) 3.8 - 9.9 K/cumm Hgb 7.5 (L) 11.9 - 15.5 g/dL Hct 23.5 (L) 35.6 - 45.5 % Plt 272 150 - 400 K/cumm MPV 11.3 9.1 - 12.3 fL RBC 2.53 (L) 3.90 - 5.20 M/cumm MCV 92.9 81.3 - 96.4 fL MCH 29.6 27.1 - 33.3 pg MCHC 31.9 (L) 32.3 - 35.7 g/dL RDW CV 16.2 (H) 11.1 - 14.9 % RDW SD 54.1 (H) 35.7 - 48.1 fL NRBC abs 0.03 (H) 0.00 - 0.01 K/cumm Basic metabolic panel Collection Time: 09/11/21 10:35 PM Result Value Ref Range Sodium 143 135 - 145 mmol/L Potassium, pl 4.2 3.3 - 4.9 mmol/L Chloride 104 97 - 110 mmol/L CO2 27 22 - 32 mmol/L Anion gap 12 2 - 15 mmol/L BUN 48 (H) 8 - 25 mg/dL Creatinine 1.98 (H) 0.60 - 1.10 mg/dL Glucose 173 70 - 199 mg/dL Calcium 9.2 8.5 - 10.3 mg/dL Magnesium Collection Time: 09/11/21 10:35 PM Result Value Ref Range Magnesium 1.9 1.4 - 2.5 mg/dL Differential, auto Collection Time: 09/11/21 10:35 PM Result Value Ref Range Neutrophil abs 6.1 1.7 - 6.5 K/cumm Imm gran abs 0.1 0.0 - 0.1 K/cumm Lymphocyte abs 2.8 0.8 - 3.3 K/cumm Monocyte abs 0.7 0.2 - 0.8 K/cumm Eosinophil abs 0.2 0.0 - 0.5 K/cumm Basophil abs 0.0 0.0 - 0.1 K/cumm Neutrophil pct 61.1 % Imm gran pct 0.6 % Lymphocyte pct 28.3 % Monocyte pct 7.3 % Eosinophil pct 2.3 % Basophil pct 0.4 % eGFR Collection Time: 09/11/21 10:35 PM Result Value Ref Range eGFR 27 (L) 90 - 130 mL/min/1.73 m2 POCT glucose Collection Time: 09/12/21 8:02 AM Result Value Ref Range Glucose, POC 148 70 - 199 mg/dL POCT glucose Collection Time: 09/12/21 1:12 PM Result Value Ref Range Glucose, POC 180 70 - 199 mg/dL POCT glucose Collection Time: 09/12/21 4:32 PM Result Value Ref Range Glucose, POC 188 70 - 199 mg/dL Additional Labs: Urine Chemistry: Lab Results Component Value Date GLUCOSEU >=1000 (A) 05/04/2014 PROTUR 265.0 02/07/2021 UREAUR 487 09/07/2021 ALBUMINUR 2,763.2 08/05/2021 Ua: No results found for: SPECGRAVU, PHURINE, RBCU, LEUKESTUR, GLUCOSEU, SQUAMEPIU, NITRITEU, KETONESU Ua Micro: No results found for: RBCU, WBCU, EPIU, YEASTU, RBCCASTU, WBCCASTU, BROADCASTU, FATCASTU,GRANCASTU, EPICASTU, HYALCASTU, MIXCASTU, WAXCASTU, AMORPHCRYU, CACARBCRYU, CAOXALCRU, CAPHOSCRYU, CYSCRYU, LEUCRYU, TRIPHOCRYU, TYRCRYU, URATECRYU, BILICRYU, TRANSEPIU, MICROALBUR, RENEPIU, BACTERIAU 24 Hour Urine: No results found for: URINEVOLUME, YPGZSCA09, CREATUR, AMTRFDJ10VG, CRCLEARANCE ASSESSMENT AND PLAN Principal Problem: Volume overload Active Problems: Schizoaffective disorder, bipolar type ([facility]/HCC) (HCC) Diabetic neuropathy ([facility]/HCC) (HCC) Type 2 diabetes mellitus with diabetic neuropathy, with long-term current use of insulin ([facility]) (HCC) Dementia (HCC) Acute renal failure superimposed on stage 4 chronic kidney disease ([facility]) (HCC) Anemia # Volume overload # past h/o nephrotic ranged proteinuria TTE showed EF 69%, otherwise stable. US ruled out cirrhosis and hydronephrosis, IVC was normal. Past h/o nephrotic ranged proteinuria > 5 G (01/2021) which was improved to 1.5 G (06/2021) on lisinopril 20 mg daily. HCV and RPR NR, HbA1C 8.4 Please send Urine albumin Cr and urine protein Cr ratio; send MM work up (SPEP with reflex to IF, serum free light chain ratio and urine immunofixation) Please obtain hep B and HIV Agree with IV lasix 40 mg BID given volume overload. Recommend to stop amlodipine and consider coreg 12.5 mg BID instead. # STEFANO on CKD or progressive CKD - Baseline Cr 1.4 - 1.6, recent OSH admission with peak Cr 3.96 trending down to 1.65 on Feb Cr in Aug 09. Cr admission 2.1. now fluctuating around 1.9-2. - UA - 2+ protein, 1+ blood, 11-20 RBC, > 50 WBC. FeUrea 27% - Etiology - STEFANO in previous admission likely 2/2 recent increase in lisinopril and chronic usage of NSAID prior, which was seems to be improved after stopping the meds. Slight Cr rise in this admission might be from progressive underlying CKD (from uncontrolled DM and previous STEFANO episodes) or might be from STEFANO (unclear etiology; ? Tubular injury from recent COVID infection given microscopic hematuria or congestion nephropathy or other). There is no evidence of obstruction in US. - No acute indication for HD - Please obtain GN work up given microscopic hematuria (C3C4, ED, ANCA, GBM, Cryo) - Please send UAC, UPC; send MM work up - Continue to trend renal function, strict I&Os, daily weights and closely monitor UOP. - Avoid nephrotoxin and hypotensive episodes. Kevin Cole MD Nephrology Fellow Consult 3 Service Contact (phone): [phone] After hours and weekends: please page [phone] Cosigned by Rachael Duong MD at 09/13/2021 2:06 PM CDT Associated attestation - Rachael Duong MD - 09/13/2021 2:06 PM CDT I have seen and examined the patient on 09/13/21. I agree with the findings and plan of care as documented in the resident's/fellow's note. Mrs. Chakraborty is admitted with dyspnea on exertion and generalized edema. Her Cr was noted to be elevated to 2.10 on presentation from a baseline of around 1.4 -1.6. She was started on IV Lasix with initial improvement in Cr to 1.9; however, Cr went up prompting hold on further diuresis, but subsequently restarted. Most recent Cr 1.9 -2.0. On chart review, her baseline weight seems to be around the 140's (lbs): Nephrology visit 03/20/21: 143 lbs Discharge weight on 08/14/21: 144 lbs Endocrinology visit on 08/19/21: 142 lbs. She was discharged to SNF and it is possible that pt might not have been on a low sodium diet as PCP note commented that pt was not on a diabetic diet and she was off any diuretics. Her weight during her PCP visit on 09/02 was 155 lbs and 161 lbs on 09/06. Pt seen this am. She reports that her BP is fine. She is about to walk with PT assistance. On exam,she has 2+ lower extremity pitting edema. Today's weight is 160 lbs. Weight up to 164 lbs on 09/11. Impression: STEFANO on CKD Volume overload: still not at her previous baseline weight. Recommendations: - Continue current diuresis with Lasix 40 mg IV BID - Can try Metolazone 2.5 mg PO x 1 - Continue daily weights and strict I/O's - Please check Ur Pr/Cr and Ur Alb/Cr - Rest of recommendations as per Dr. Cole's note. Rachael Duong MD * Kami Perez, RD - 09/07/2021 12:32 PM CDTAssociated Order(s): IP CONSULT TO NUTRITION SERVICES Nutrition Assessment Reason for Assessment: Consult/Referral Encounter Date: 09/07/21 12:32 PM Patient is a 70 y.o. female with chief complaint of STEFANO and volume overload. LOS is 0 days. HPI: Patient admitted with STEFANO and volume overload. PMH includes: dementia, schizoaffective disorder and DM2. Objective Past Medical History: Diagnosis Date ??? Arthritis ??? Depression ??? Diabetic neuropathy (CMS/HCC) (HCC) ??? Hyperlipidemia ??? Hypertension ??? Schizophrenia (HCC) ??? Type 2 diabetes mellitus (HCC) Past Surgical History: Procedure Laterality Date ??? SECTION Right right foot ??? TOE AMPUTATION Right 01/06/2020 4th toe amp/ foot debridement/ Dr. Anat Pelayo Social History Tobacco Use ??? Smoking status: Never Smoker ??? Smokeless tobacco: Never Used Substance Use Topics ??? Alcohol use: Not Currently Family History Problem Relation Age of Onset ??? Stomach cancer Father Anthropometrics: Wt Readings from Last 3 Encounters: 09/07/21 73.4 kg (161 lb 12.8 oz) 09/06/21 73.3 kg (161 lb 8 oz) 09/02/21 70.5 kg (155 lb 8 oz) Anthropometrics Weight: 73.4 kg (161 lb 12.8 oz) Admission Weight : 73.4 kg Weight Change: 0.13 kg (0.30 lbs) IBW/kg (Calculated) : 49.9 kg Height: 157.5 cm (5' 2 ) Weight in (lb) to have BMI = 25: 136.4 BMI (Calculated): 29.6 Nutrition Needs Calculations: Calculated Energy Needs Using Equations Weight: 73.4 kg (161 lb 12.8 oz) Height: 157.5 cm (5' 2 ) Estimated Protein Needs Type of Weight Used for Estimated Protein : [place] Protein Needs Based on g/k.2 Total Protein Estimated Needs (gm): 59.88 Kcal/kg Type of Weight Used for Estimated Kcals: [place] Kcal/k Total Kcal/kg Estimated Needs : 1497 Vital Signs: BP: 162/77 Temp: 36.9 ??C (98.4 ??F) Pulse: 83 Resp: 16 SpO2: 96 % Medications: Scheduled Meds: amLODIPine, 10 mg, oral, Daily atorvastatin, 40 mg, oral, Daily capsaicin, , topical, BID famotidine, 20 mg, oral, Daily heparin, 5,000 Units, subcutaneous, Q8H SOL insulin glargine, 0.25 Units/kg, subcutaneous, Nightly insulin lispro, 0-10 Units, subcutaneous, TID with meals insulin lispro, 0-5 Units, subcutaneous, Nightly insulin lispro, 5 Units, subcutaneous, TID with meals polyethylene glycol, 17 g, oral, Daily pregabalin, 150 mg, oral, Daily risperiDONE, 2 mg, oral, Nightly Continuous Infusions: PRN Meds: ??? acetaminophen ??? dextrose OR dextrose ??? glucagon Lab Review: Sodium Date Value Ref Range Status 09/06/2021 143 135 - 145 mmol/L Final Comment: Testing performed by: [address] [id number] Potassium, pl Date Value Ref Range Status 09/06/2021 4.6 3.3 - 4.9 mmol/L Final Comment: Testing performed by: [address] [address] BUN Date Value Ref Range Status 09/06/2021 50 (H) 8 - 25 mg/dL Final Comment: Testing performed by: [address] [id number] Creatinine Date Value Ref Range Status 09/06/2021 2.10 (H) 0.60 - 1.10 mg/dL Final Comment: Testing performed by: [address] [id number] Albumin Date Value Ref Range Status 09/06/2021 3.6 3.5 - 5.0 g/dL Final Comment: Testing performed by: [address] [address] Calcium Date Value Ref Range Status 09/06/2021 9.1 8.5 - 10.3 mg/dL Final Comment: Testing performed by: [address] [address] ALT Date Value Ref Range Status 09/06/2021 17 7 - 45 Units/L Final Comment: Testing performed by: [address] [address] AST Date Value Ref Range Status 09/06/2021 17 10 - 45 Units/L Final Comment: Testing performed by: [facility], [address] [place] [address]., [address] Alk phos Date Value Ref Range Status 09/06/2021 134 (H) 40 - 130 Units/L Final Comment: Testing performed by: [facility], [address] [place] [address], [place]., [address] Lab Results Component Value Date HGBA1C 8.4 (H) 09/07/2021 HDL 51 02/07/2021 LDLCALC 53 02/07/2021 CHOL 133 02/07/2021 TRIG 147 02/07/2021 Nursing Assessment: No intake or output data in the 24 hours ending 09/07/21 1232 Gastrointestinal Gastrointestinal (WDL): Within Defined Limits Abdomen Inspection: Soft, Rounded Bowel Sounds (All Quadrants): Present Palpation: Soft Timoteo Scale Score: 19 Skin Integrity: Intact Edema: Moderate pitting, indentation subsides rapidly Dietary Orders (From admission, onward) Start Ordered 09/07/21 1300 Oral Nutrition Supplements Select Supplement: Glucerna Shake - Fox, VARY/multiple Flavor 3 times daily Question Answer Comment Select Supplement: Glucerna Shake - Fox Select Supplement: VARY/multiple Flavor 09/07/21 1032 09/07/21 0108 Adult Diet Restricted; 2 GM Sodium; Consistent Carbohydrate Diet effective now Question Answer Comment ([facility]) Diet type Restricted Fat / Sodium Restriction: 2 GM Sodium Diabetic: Consistent Carbohydrate 09/07/21 0107 Impression: Patient states a reduced appetite at this time. States she has been trying to eat though only tolerates a good breakfast and lunch meal. States dinner meal is difficult for her. Patient states she feels her weight has been stable despite reduced appetite and intake. Denies any n/v/d/c currently. Wt Readings from Last 10 Encounters: 09/07/21 73.4 kg (161 lb 12.8 oz) 09/06/21 73.3 kg (161 lb 8 oz) 09/02/21 70.5 kg (155 lb 8 oz) 08/19/21 64.6 kg (142 lb 6.4 oz) 08/08/21 65.6 kg (144 lb 10 oz) 08/05/21 64 kg (141 lb 1.6 oz) 08/05/21 63 kg (139 lb) 07/02/21 70.8 kg (156 lb) 06/18/21 70.8 kg (156 lb 1.6 oz) 05/28/21 68.1 kg (150 lb 1.6 oz) NUTRITION DIAGNOSIS Nutrition Diagnosis 1: Inadequate oral intake Related to: Loss of appetite Evidenced by: Patient interview INTERVENTION Discussed the importance of consuming adequate calories and protein to help prevent weight loss andpreserve lean body mass. Encouraged ordering consistently for meals to prompt intake. Encouraged ordering options that sound good to her. Encouraged consideration of Glucerna supplement to improve protein/calorie intake. RD following. GOALS / MONITORING: Goals: Adequate nutrition to meet estimated needs by next assessment Interventions: Encouragement, Medical food supplement Monitoring and Evaluation: Appetite, PO intake, Plan of care Daniella Perez MS, RD, CREATIVE PROJECT MANAGER, CCTD, LD Weekend On-Call: #[phone] documented in this encounter Nursing Notes * Macey Stafford RN - 09/15/2021 6:59 PM CDT I have served as preceptor for Carolyn OLIVEIRA. Agree with charted assessment unless otherwise noted. * Donna Crabtree RN - 09/07/2021 6:07 AM CDT Orientation with Felicity LAY. Agree with charted assessment unless otherwise noted. documented in this encounter ED Notes * Demetri Del Toro IV, JARAD - 09/06/2021 4:32 PM CDT HPI Chief Complaint Patient presents with ??? Edema 70 y/o female presents at behest of primary care provider for elevated CR, BNP, anarsarca, and approx 6# weight gain in the last week. Primary historian daughter. Was recently in rehab after admit inljuly for STEFANO with fluid retention, and d/c to rehab. She was recently d/c from rehab and since then has become increasingly weak and more edematous. States increased MYLES. Patient History: Patient Active Problem List Diagnosis Date Noted ??? Anemia 09/07/2021 ??? Volume overload 09/06/2021 ??? Late onset Alzheimer's dementia without behavioral disturbance (HCC) 08/19/2021 ??? Delirium 08/07/2021 ??? Acute renal failure superimposed on stage 4 chronic kidney disease (CMS/HCC) (HCC) 08/07/2021 ??? Encounter for Medicare annual wellness exam 01/08/2021 ??? Stage 3b chronic kidney disease (HCC) 12/11/2020 ??? Dementia (HCC) 10/10/2020 ??? Encounter for psychiatric assessment 10/10/2020 ??? Schizoaffective disorder, bipolar type (CMS/HCC) ([facility]) 10/10/2020 ??? Hyperlipidemia associated with type 2 diabetes mellitus ([facility]) 04/03/2020 ??? Iron deficiency anemia 04/02/2020 ??? GERD (gastroesophageal reflux disease) 04/02/2020 ??? Amputation of toe of right foot (CMS/HCC) ([facility]) 01/19/2020 ??? Hypertension associated with diabetes ([facility]) 12/13/2019 ??? Schizoaffective disorder, bipolar type (CMS/HCC) ([facility]) 08/30/2019 ??? Type 2 diabetes mellitus with diabetic neuropathy, with long-term current use of insulin (CMS/HCC) ([facility]) 08/30/2019 ??? Diabetic neuropathy (CMS/HCC) ([facility]) Past Medical History: Diagnosis Date ??? Arthritis ??? Depression ??? Diabetic neuropathy (CMS/HCC) ([facility]) ??? Hyperlipidemia ??? Hypertension ??? Schizophrenia ([facility]) ??? Type 2 diabetes mellitus ([facility]) Past Surgical History: Procedure Laterality Date ??? [...] Social History Social History Narrative Originally From [place] Grew up with her mom and dad. 12th grade - graduated. [employer]. [employer]ary - none. Rastafarian. I never worked. Single. Review of Systems Review of Systems All other systems reviewed and are negative. Physical Exam ED Triage Vitals Temp Pulse Resp BP SpO2 09/06/21 1441 09/06/21 1441 09/06/21 1441 09/06/21 1441 09/06/21 1441 36.2 ??C (97.1 ??F) 90 14 119/60 100 % Temp src Heart Rate Source Patient Position BP Location FiO2 (%) 09/06/21 1441 09/07/21 0030 09/07/21 0030 09/07/21 0030 -- Temporal Monitor Sitting Right arm Physical Exam Vitals and nursing note reviewed. Constitutional: Appearance: Normal appearance. HENT: Head: Normocephalic and atraumatic. Mouth/Throat: Mouth: Mucous membranes are moist. Eyes: Extraocular Movements: Extraocular movements intact. Pupils: Pupils are equal, round, and reactive to light. Cardiovascular: Rate and Rhythm: Normal rate and regular rhythm. Pulses: Normal pulses. Heart sounds: Murmur heard. Systolic murmur is present with a grade of 4/6. Pulmonary: Effort: Pulmonary effort is normal. Breath sounds: Normal breath sounds. Musculoskeletal: Cervical back: Normal range of motion. Right lower le+ Pitting Edema present. Left lower le+ Pitting Edema present. Neurological: Mental Status: She is alert. MDM Medical Decision Making Differential Diagnosis or Management Options: STEFANO on CKD, with associated weight gain and elevated BNP, worsening anasarca. R/O infectious process r/o ACS. Given elevated Cr and failure of OP therapy and elevated BNP, likely to need admission for early cardiorenal syndrome. ED Course as of 09/15/21 1911 Time: 09/06 1636 Comment: Spot read of CXR with ?trace bibasilar opacities. Awaiting official read. Trop negative will plan for admission. By: Demetri Del Toro IV, NP Time: 09/06 2136 Value: XR Chest Pa Lateral 2 Views Comment: IMPRESSION: Minimally increased small right pleural effusion with mild right basilar atelectasis. No left pleural effusion. No pneumothorax. Cardiomediastinal silhouette is stable. ?? Dictated by: Luan Colunga M.D. By: Augusta Maciel NP Time: 09/06 2137 Comment: Pt received 20mg of Lasix around 1621. Troponin unremarkable x 2. Denies CP. Currently waiting for medicine admit bed. By: Augusta Maciel NP Final diagnoses: Hypervolemia, unspecified hypervolemia type STEFANO (acute kidney injury) (CMS/HCC) (HCC) - on CKD Demetri Del Toro IV, NP 09/06/211912 Demetri Del Toro IV, NP 09/15/211910 * Saad Arora RN - 09/06/2021 3:37 PM CDT Bed: ED3- Expected date: Expected time: Means of arrival: Car Comments: Saad Arora RN 09/06/211536 * Saad Arora RN - 09/06/2021 2:39 PM CDT Patient coming to the ED as directed by PCP for evaluation of exacerbated kidney disease with fluidretention. Pt had creatinine of 2.1 that is up from 1.65. Pt has BLE edema and BUE edema. Patient is accompanied by her daughter who is primary historian. Pt has hx of ESRD, DM, and dementia. documented in this encounter Miscellaneous Notes * Plan of Care - Sumeet Sams RN - 09/18/2021 6:29 PM CDT Problem: Health Behavior: Goal: Understanding [...] home environment Outcome: Progressing Problem: Activity: Goal: Risk for activity intolerance will decrease Outcome: Progressing Problem: Lack of Knowledge: Goal: Knowledge of diagnostic tests will improve Outcome: Progressing Goal: Knowledge of disease or condition will improve Outcome: Progressing Goal: Knowledge of safety precautions will improve Outcome: Progressing Goal: Knowledge of the prescribed therapeutic regimen will improve Outcome: Progressing Problem: Health Behavior: Goal: Ability to state signs and symptoms to report to health care provider will improve Outcome: Progressing Problem: Physical Regulation: Goal: Ability to maintain clinical measurements within normal limits will improve Outcome: Progressing Problem: Infection Risk: Goal: Will remain free from infection Outcome: Progressing Problem: Safety: Goal: Ability to remain free from injury will improve Outcome: Progressing Goal: Will remain free from falls Outcome: Progressing Problem: Self-Care: Goal: Ability to participate in self-care as condition permits will improve Outcome: Progressing Problem: Sensory: Goal: Pain level will decrease Outcome: Progressing Goal: Ability to develop a pain control plan will improve Outcome: Progressing Problem: Skin Integrity: Goal: Risk for impaired skin integrity will decrease Outcome: Progressing Problem: Tissue Perfusion: Goal: Risk factors for ineffective tissue perfusion will decrease Outcome: Progressing Problem: Activity: Goal: Risk for activity intolerance will decrease Outcome: Progressing Problem: Lack of Knowledge: Goal: Knowledge of diagnostic tests will improve Outcome: Progressing Goal: Knowledge of disease or condition will improve Outcome: Progressing Goal: Knowledge of safety precautions will improve Outcome: Progressing Goal: Knowledge of the prescribed therapeutic regimen will improve Outcome: Progressing Problem: Health Behavior: Goal: Ability to state signs and symptoms to report to health care provider will improve Outcome: Progressing Problem: Physical Regulation: Goal: Ability to maintain clinical measurements within normal limits will improve Outcome: Progressing Problem: Infection Risk: Goal: Will remain free from infection Outcome: Progressing Problem: Safety: Goal: Ability to remain free from injury will improve Outcome: Progressing Goal: Will remain free from falls Outcome: Progressing Problem: Self-Care: Goal: Ability to participate in self-care as condition permits will improve Outcome: Progressing Problem: Sensory: Goal: Pain level will decrease Outcome: Progressing Goal: Ability to develop a pain control plan will improve Outcome: Progressing Problem: Skin Integrity: Goal: Risk for impaired skin integrity will decrease Outcome: Progressing Problem: Tissue Perfusion: Goal: Risk factors for ineffective tissue perfusion will decrease Outcome: Progressing Goals: Clinical Goals for the Shift: VS and Lab monitoring, Accucheck, pain management, keep pt safe and comfortable Summary: * Plan of Care - Karo Magaña LCSW - 09/18/2021 12:42 PM CDT Spoke with Dr Ryan's office re: missed neph appt today due to hospitalization. Next available at the [facility] (where she is normally seen) is 10/16. They will review her chart and consult with Michael and if she needs to be sooner, they will reach out to pt to see if she is agreeable to going to [facility]. 10/16/2021 4:00 PM Markie Ryan MD [facility] [address] Karo Magaña LCSW [employer] Operator [phone] * Subjective & Objective - Whit Milligan MD PhD - 09/18/2021 11:35 AM CDT Daily Progress Note Division of Hospital Medicine Name: Barbara Chakraborty Today: September 18, 2021 : 1950 Age: 70 y.o. female Admit: 09/06/2021 Bed: [id number] Subjective Chief complaint: Volume overload/anasarca 2/2 progressive CRF. Acute on CRF4. Proteinuria. 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 Patient replies that she is feeling good and is ready to go home today. Objective Medications: Scheduled: atorvastatin, 40 mg, oral, Daily carvediloL, 12.5 mg, oral, BID with meals (bkfst, dinner) famotidine, 20 mg, oral, Daily ferrous sulfate, 65 mg of elemental iron, oral, Daily with breakfast furosemide, 40 mg, oral, BID DIURETIC heparin, 5,000 Units, subcutaneous, Q8H SOL insulin glargine, 25 Units, subcutaneous, Nightly insulin lispro, 0-10 Units, subcutaneous, TID with meals insulin lispro, 0-5 Units, subcutaneous, Nightly insulin lispro, 8 Units, subcutaneous, TID with meals polyethylene glycol, 17 g, oral, Daily pregabalin, 150 mg, oral, Daily risperiDONE, 2 mg, oral, Nightly Infusions: PRN: acetaminophen capsaicin dextrose OR dextrose glucagon Vitals: 24hr Min/Max: Temp Min: 36.4 ??C (97.5 ??F) Max: 36.6 ??C (97.9 ??F) Pulse Min: 57 Max: 64 BP Min: 123/52 Max: 140/59 Resp Min: 16 Max: 16 SpO2 Min: 95 % Max: 98 % Most Recent: Vitals: 09/18/21 0845 BP: 127/52 Pulse: 61 Resp: 16 Temp: 36.4 ??C (97.5 ??F) SpO2: 96% Intake/Output Summary (Last 24 hours) at 09/18/2021 1135 Last data filed at 09/18/2021 1100 Gross per 24 hour Intake 240 ml Output 2450 ml Net -2210 ml Physical Exam Vitals and nursing note reviewed. Constitutional: General: She is not in acute distress. Cognitive dysfunction, pleasantly agreeable. No behavioral issues. Appearance: She is obese. She is not ill-appearing or diaphoretic. Comments: no swelling in upper or lower extremities, sitting in chair alert, conversational. Limited insight. Pleasant. HENT: Head: Normocephalic and atraumatic. Right Ear: External ear normal. Left Ear: External ear normal. Nose: Nose normal. No congestion or rhinorrhea. Mouth/Throat: Mouth: Mucous membranes are moist. Pharynx: Oropharynx is clear. No oropharyngeal exudate or posterior oropharyngeal erythema. Eyes: General: No scleral icterus. Extraocular Movements: Extraocular movements intact. Conjunctiva/sclera: Conjunctivae normal. Pupils: Pupils are equal, round, and reactive to light. Cardiovascular: Rate and Rhythm: Normal rate and regular rhythm. Pulses: Normal pulses. Heart sounds: No murmur heard. No friction rub. No gallop. Pulmonary: Effort: Pulmonary effort is normal. No respiratory distress. Breath sounds: No stridor. No wheezing, rhonchi or rales. Comments: Decreased BS at bases bilaterally, shallow inpirations. No wheezing or rales appreciated. Chest: Chest wall: No tenderness. Abdominal: General: Bowel sounds are normal. There is no distension. Palpations: There is no mass. Tenderness: There is no abdominal tenderness. Hernia: No hernia is present. Comments: Obese, protuberant. No fluid wave appreciated. Musculoskeletal: Cervical back: Normal range of motion and neck supple. Comments: RESOLVED pitting edema of upper and lower extremities Prior R 4th toe amputation, site well healed. Skin: General: Skin is warm and dry. Capillary Refill: Capillary refill takes less than 2 seconds. Coloration: Skin is not jaundiced. Findings: No rash. Neurological: General: No focal deficit present. Mental Status: She is alert. Cranial Nerves: No cranial nerve deficit. Sensory: Not tested, but previously found sensory deficit present. Comments: Alert, oriented x3, but significant short term memory deficits, stocking glove distribution of neuropathy on hands, feet bilaterally and same conversation each day about neuropathy due to diabetes Oh I didn't know that . Psychiatric: Mood and Affect: Mood normal. Behavior: Behavior normal. Thought Content: Poor retention of new information, Repetitive comments. Lab/Diagnostic Review: Recent Results (from the past 36 hour(s)) POCT glucose Collection Time: 09/17/21 7:43 AM Result Value Ref Range Glucose, POC 163 70 - 199 mg/dL POCT glucose Collection Time: 09/17/21 12:18 PM Result Value Ref Range Glucose, POC 198 70 - 199 mg/dL POCT glucose Collection Time: 09/17/21 5:26 PM Result Value Ref Range Glucose, POC 203 (H) 70 - 199 mg/dL CBC with auto differential Collection Time: 09/17/21 8:08 PM Result Value Ref Range WBC 10.3 (H) 3.8 - 9.9 K/cumm Hgb 8.7 (L) 11.9 - 15.5 g/dL Hct 28.4 (L) 35.6 - 45.5 % Plt 404 (H) 150 - 400 K/cumm MPV 11.3 9.1 - 12.3 fL RBC 3.02 (L) 3.90 - 5.20 M/cumm MCV 94.0 81.3 - 96.4 fL MCH 28.8 27.1 - 33.3 pg MCHC 30.6 (L) 32.3 - 35.7 g/dL RDW CV 16.3 (H) 11.1 - 14.9 % RDW SD 55.8 (H) 35.7 - 48.1 fL NRBC abs 0.00 0.00 - 0.01 K/cumm Basic metabolic panel Collection Time: 09/17/21 8:08 PM Result Value Ref Range Sodium 139 135 - 145 mmol/L Potassium, pl 4.5 3.3 - 4.9 mmol/L Chloride 99 97 - 110 mmol/L CO2 29 22 - 32 mmol/L Anion gap 11 2 - 15 mmol/L BUN 71 (H) 8 - 25 mg/dL Creatinine 2.33 (H) 0.60 - 1.10 mg/dL Glucose 210 (H) 70 - 199 mg/dL Calcium 10.1 8.5 - 10.3 mg/dL Magnesium Collection Time: 09/17/21 8:08 PM Result Value Ref Range Magnesium 2.3 1.4 - 2.5 mg/dL Differential, auto Collection Time: 09/17/21 8:08 PM Result Value Ref Range Neutrophil abs 5.8 1.7 - 6.5 K/cumm Imm gran abs 0.1 0.0 - 0.1 K/cumm Lymphocyte abs 3.4 (H) 0.8 - 3.3 K/cumm Monocyte abs 0.7 0.2 - 0.8 K/cumm Eosinophil abs 0.3 0.0 - 0.5 K/cumm Basophil abs 0.1 0.0 - 0.1 K/cumm Neutrophil pct 56.3 % Imm gran pct 0.6 % Lymphocyte pct 32.6 % Monocyte pct 7.0 % Eosinophil pct 2.9 % Basophil pct 0.6 % eGFR Collection Time: 09/17/21 8:08 PM Result Value Ref Range eGFR 22 (L) 90 - 130 mL/min/1.73 m2 POCT glucose Collection Time: 09/17/21 9:37 PM Result Value Ref Range Glucose, POC 225 (H) 70 - 199 mg/dL POCT glucose Collection Time: 09/18/21 7:33 AM Result Value Ref Range Glucose, POC 238 (H) 70 - 199 mg/dL I have reviewed the laboratory results. Imaging Results: US Abdomen Complete Narrative: EXAMINATION: COMPLETE ABDOMINAL SONOGRAM HISTORY: 70-year-old woman with diabetes mellitus and acute on chronic kidney disease. She is hospitalized with anasarca. Evaluate for cirrhosis. COMPARISON: None FINDINGS: Liver: The liver is normal in size. The echotexture is normal. The echogenicity is normal. There is no surface nodularity. No focal solid lesions are visualized. Gallbladder: The gallbladder is normal in size. There are no stones or sludge within the gallbladder. There is no gallbladder wall thickening. Bile Duct: There is no intrahepatic bile duct dilatation. The diameter of the common duct is 5 mm in the mid segment and 2 mm in the distal segment. Kidneys: There is no hydronephrosis in the visualized portions of the kidneys. Pancreas: Pancreas is not well visualized due to overlying bowel gas. Spleen: The spleen is normal in size. Aorta: The proximal aorta is normal. Inferior vena cava: The proximal IVC is normal. Other Findings: There is a right pleural effusion. Impression: 1. No sonographic findings of cirrhosis. 2. Right pleural effusion. Dr. Bronson (associate professor of radiology) personally participated in sonographic imaging of this patient. ANAY Bernardo also participated in sonographic imaging of this patient. Dictated by: Cristo Bronson MD The radiology attending physician has personally reviewed this study, and had reviewed and/or edited this written report and agrees with it. Electronically signed by: Mayuri A. Teefey, M.D. * Plan of Care - Jesús Spencer RN - 09/17/2021 10:17 PM CDT Goals: Clinical Goals for the Shift: VS and Lab monitoring, Accucheck, pain management, keep pt safe and comfortable Summary: * Plan of Care - Cee Gonzalez RN - 09/17/2021 1:15 PM CDT Report per DCAM:Patient is not medically stable for discharge today per MD. Impression: Creatinine slight elevated monitor today Referrals:Home health Problem:Establish safe discharge plan Support:family Transportation:ambulance F/U appointment:Appointment to be addressed prior to discharge.Appointment to be addressed prior todischarge. ADD:09/18/2021 Goal/Plan:Collaboration with patient/family, clinical team to identify discharge needs to assure interventions completed for safe discharge and continuum of care, and that patient/family are agreeable with. Plan home with family and home health Case Management will follow for planning and referrals as needed. * Assessment & Plan Note - Sharron Tobin MD - 09/17/2021 10:17 AM CDT Associated Problem(s): Volume overload Due to progressive CRF4. Presents with increasing [...] on day of admission but held 9?) &further worsened with diuretics. Patient appears grossly volume [...] Goal weight 155lbs -Home with family at [place], board operator consulted to review salt restrictions. -outpatient BMP, phos, mag in 1 week and f/u Dr. Ryan in 2 weeks * Assessment & Plan Note - Sharron Tobin MD - 09/17/2021 10:17 AM CDT Associated Problem(s): Type 2 diabetes mellitus with diabetic neuropathy, with long-term current use of insulin (HCC) Home regimen lantus 18, lispro 5 TID [...] for strict med oversight by family at [place] reviewed with daughter this admit. * Assessment & Plan Note - Sharron Tobin MD - 09/17/2021 10:17 AM CDT Associated Problem(s): Schizoaffective disorder, bipolar type (CMS/HCC) (HCC) (Deleted) Hx of schizoaffective disorder, follows with psych outpatient. Earlier in year had been on daily haldol, weaned off due to increased fatigue. Currently no active psychotic manic symptoms, mood is stable and pleasant, cooperative with exam, testing and management. Continued home risperdal 2mg BID, remains alert. No extrapyramidal symptoms noted on exam. * Assessment & Plan Note - Sharron Tobin MD - 09/17/2021 10:17 AM CDT Associated Problem(s): Diabetic neuropathy (HCC) (Resolved 05/16/2024) Ongoing symptoms. Previously on lyrica and Likely exacerbated by volume status. Monitor for response with diuresis, improved with less swelling. * Assessment & Plan Note - Sharron Tobin MD - 09/17/2021 10:17 AM CDT Associated Problem(s): Dementia (HCC) (Deleted) Reported baseline dementia, `AOX2-3. Corroborated by daughter who she lives with. Frequent hospitalizations this year. Suspect med compliance may be an issue. Currently at baseline neurological status. Managed on delirium precautions. PT rec 24 supervision with family, OT rec SNF. Spoke with Daughter Honey Gayle [phone]. CM following for dispo planning & HHC orders placed 09/13. Pt's daughter states she works, but has daughter who could be available during that time. Asking about additional resources for home care. CM notified & additional resources provided. Plan home at [place] with 24hr supervision, HHC. * Assessment & Plan Note - Sharron Tobin MD - 09/17/2021 10:16 AM CDT Associated Problem(s): Anemia (Deleted) Progressive anemia with Hb 7.1 (dilutional?) from 9.7 over past month ago. 1+ blood in urine, neg cx. Pt denies gross hematuria, epistaxis, melena, hematochezia, hematemesis. Low FeSat, ferritin decreased to 179. Recent normal B12/Folate. Consistent with mixed AOCD/HECTOR. Concerning for occult bleeding, but Hb stable. More likely related to CRF. -Started oral iron supplementation -suspect anemia in s/o progressive CRF. Defer to renal timing of epo agents. -GI made aware 09/09, will order OP EGD/colonoscopy at time of discharge and GI team will facilitateexpedited scheduling -Hb trending down to 7, 7.4, type and screen updated. Guiac stool neg 09/15. -Consented for blood transfusion, goal Hb > 7, give lasix 20 IV if giving blood. * Assessment & Plan Note - Sharron Tobin MD - 09/17/2021 10:16 AM CDT Associated Problem(s): Acute renal failure superimposed on stage 4 chronic kidney disease (CMS/HCC)(HCC) (Deleted) known CKD, likely 2/2 dm. Baseline Cr ~1.6, follows with nephrology outpatient. Cr 2.1 on admit w/ FEUrea 27% consistent with pre-renal injury such as cardiorenal syndrome, however normal LV/RV sys/diastolic function. Urinalysis with 1+ blood in setting of possible UTI. Cr improved initially after first dose of diuretics, worsened slightly with holding further diuresis & patient remained volume overloaded. -Ucx insignificant. -resumed IV diuresis 09/10, nonoliguric. -Daily electrolytes and renal function, unable to monitor strict I/O in s/o urinary incontinence, following serial weights. Avoid geller, if possible. - hold nephrotoxic agents/renally dose medications -F/u Cr 1.8-2.3 -High Density Press Operator to meet with family regarding diet restriction education. Attempted to reach daughter with update 09/16, line busy. * Plan of Care - Jack Austin RN - 09/16/2021 10:58 PM CDT Goals: Clinical Goals for the Shift: VS and Lab monitoring, Accucheck, pain management, keep pt safe and comfortable Summary: Problem: Health Behavior: Goal: Understanding of [...] home environment Outcome: Progressing Problem: Activity: Goal: Risk for activity intolerance will decrease Outcome: Progressing Problem: Lack of Knowledge: Goal: Knowledge of diagnostic tests will improve Outcome: Progressing Goal: Knowledge of disease or condition will improve Outcome: Progressing Goal: Knowledge of safety precautions will improve Outcome: Progressing Goal: Knowledge of the prescribed therapeutic regimen will improve Outcome: Progressing Problem: Health Behavior: Goal: Ability to state signs and symptoms to report to health care provider will improve Outcome: Progressing Problem: Physical Regulation: Goal: Ability to maintain clinical measurements within normal limits will improve Outcome: Progressing Problem: Infection Risk: Goal: Will remain free from infection Outcome: Progressing Problem: Safety: Goal: Ability to remain free from injury will improve Outcome: Progressing Goal: Will remain free from falls Outcome: Progressing Problem: Self-Care: Goal: Ability to participate in self-care as condition permits will improve Outcome: Progressing Problem: Sensory: Goal: Pain level will decrease Outcome: Progressing Goal: Ability to develop a pain control plan will improve Outcome: Progressing Problem: Skin Integrity: Goal: Risk for impaired skin integrity will decrease Outcome: Progressing Problem: Tissue Perfusion: Goal: Risk factors for ineffective tissue perfusion will decrease Outcome: Progressing Problem: Activity: Goal: Risk for activity intolerance will decrease Outcome: Progressing Problem: Lack of Knowledge: Goal: Knowledge of diagnostic tests will improve Outcome: Progressing Goal: Knowledge of disease or condition will improve Outcome: Progressing Goal: Knowledge of safety precautions will improve Outcome: Progressing Goal: Knowledge of the prescribed therapeutic regimen will improve Outcome: Progressing Problem: Health Behavior: Goal: Ability to state signs and symptoms to report to health care provider will improve Outcome: Progressing Problem: Physical Regulation: Goal: Ability to maintain clinical measurements within normal limits will improve Outcome: Progressing Problem: Infection Risk: Goal: Will remain free from infection Outcome: Progressing Problem: Safety: Goal: Ability to remain free from injury will improve Outcome: Progressing Goal: Will remain free from falls Outcome: Progressing Problem: Self-Care: Goal: Ability to participate in self-care as condition permits will improve Outcome: Progressing Problem: Sensory: Goal: Pain level will decrease Outcome: Progressing Goal: Ability to develop a pain control plan will improve Outcome: Progressing Problem: Skin Integrity: Goal: Risk for impaired skin integrity will decrease Outcome: Progressing Problem: Tissue Perfusion: Goal: Risk factors for ineffective tissue perfusion will decrease Outcome: Progressing * Plan of Care - Macey Stafford RN - 09/16/2021 6:03 PM CDT Goals: Clinical Goals for the Shift: VS and Lab monitoring, Monitor I&Os, pain management, keep pt safe and comfortable Summary: Problem: Health Behavior: Goal: Understanding of [...] home environment Outcome: Progressing Problem: Activity: Goal: Risk for activity intolerance will decrease Outcome: Progressing Problem: Lack of Knowledge: Goal: Knowledge of diagnostic tests will improve Outcome: Progressing Goal: Knowledge of disease or condition will improve Outcome: Progressing Goal: Knowledge of safety precautions will improve Outcome: Progressing Goal: Knowledge of the prescribed therapeutic regimen will improve Outcome: Progressing Problem: Health Behavior: Goal: Ability to state signs and symptoms to report to health care provider will improve Outcome: Progressing Problem: Physical Regulation: Goal: Ability to maintain clinical measurements within normal limits will improve Outcome: Progressing Problem: Infection Risk: Goal: Will remain free from infection Outcome: Progressing Problem: Safety: Goal: Ability to remain free from injury will improve Outcome: Progressing Goal: Will remain free from falls Outcome: Progressing Problem: Self-Care: Goal: Ability to participate in self-care as condition permits will improve Outcome: Progressing Problem: Sensory: Goal: Pain level will decrease Outcome: Progressing Goal: Ability to develop a pain control plan will improve Outcome: Progressing Problem: Skin Integrity: Goal: Risk for impaired skin integrity will decrease Outcome: Progressing Problem: Tissue Perfusion: Goal: Risk factors for ineffective tissue perfusion will decrease Outcome: Progressing Problem: Activity: Goal: Risk for activity intolerance will decrease Outcome: Progressing Problem: Lack of Knowledge: Goal: Knowledge of diagnostic tests will improve Outcome: Progressing Goal: Knowledge of disease or condition will improve Outcome: Progressing Goal: Knowledge of safety precautions will improve Outcome: Progressing Goal: Knowledge of the prescribed therapeutic regimen will improve Outcome: Progressing Problem: Health Behavior: Goal: Ability to state signs and symptoms to report to health care provider will improve Outcome: Progressing Problem: Physical Regulation: Goal: Ability to maintain clinical measurements within normal limits will improve Outcome: Progressing Problem: Infection Risk: Goal: Will remain free from infection Outcome: Progressing Problem: Safety: Goal: Ability to remain free from injury will improve Outcome: Progressing Goal: Will remain free from falls Outcome: Progressing Problem: Self-Care: Goal: Ability to participate in self-care as condition permits will improve Outcome: Progressing Problem: Sensory: Goal: Pain level will decrease Outcome: Progressing Goal: Ability to develop a pain control plan will improve Outcome: Progressing Problem: Skin Integrity: Goal: Risk for impaired skin integrity will decrease Outcome: Progressing Problem: Tissue Perfusion: Goal: Risk factors for ineffective tissue perfusion will decrease Outcome: Progressing * Assessment & Plan Note - Maddi Aaron MD - 09/16/2021 3:53 PM CDT Associated Problem(s): Diabetic neuropathy (HCC) (Resolved 05/16/2024) Ongoing symptoms. Previously on lyrica and Likely exacerbated by volume status. Monitor for response with diuresis, improved with less swelling. * Assessment & Plan Note - Maddi Aaron MD - 09/16/2021 3:52 PM CDT Associated Problem(s): Type 2 diabetes mellitus with diabetic neuropathy, with long-term current use of insulin (HCC) Home regimen lantus 18, lispro 5 TID [...] for strict med oversight by family at [place] reviewed with daughter this admit. * Assessment & Plan Note - Maddi Aaron MD - 09/16/2021 3:51 PM CDT Associated Problem(s): Schizoaffective disorder, bipolar type (CMS/HCC) (HCC) (Deleted) Hx of schizoaffective disorder, follows with psych outpatient. Earlier in year had been on daily haldol, weaned off due to increased fatigue. Currently no active psychotic manic symptoms, mood is stable and pleasant, cooperative with exam, testing and management. Continued home risperdal 2mg BID, remains alert. No extrapyramidal symptoms noted on exam. * Assessment & Plan Note - Maddi Aaron MD - 09/16/2021 3:47 PM CDT Associated Problem(s): Dementia (HCC) (Deleted) Reported baseline dementia, `AOX2-3. Corroborated by daughter who she lives with. Frequent hospitalizations this year. Suspect med compliance may be an issue. Currently at baseline neurological status. Managed on delirium precautions. PT rec 24 supervision with family, OT rec SNF. Spoke with Daughter Honey Gayle [phone]. CM following for dispo planning & HHC orders placed 09/13. Pt's daughter states she works, but has daughter who could be available during that time. Asking about additional resources for home care. CM notified & additional resources provided. Plan home at [place] with 24hr supervision, HHC. * Assessment & Plan Note - Maddi Aaron MD - 09/16/2021 3:46 PM CDT Associated Problem(s): Anemia (Deleted) Progressive anemia with Hb 7.1 (dilutional?) from 9.7 over past month ago. 1+ blood in urine, neg cx. Pt denies gross hematuria, epistaxis, melena, hematochezia, hematemesis. Low FeSat, ferritin decreased to 179. Recent normal B12/Folate. Consistent with mixed AOCD/HECTOR. Concerning for occult bleeding, but Hb stable. More likely related to CRF. -Started oral iron supplementation -suspect anemia in s/o progressive CRF. Defer to renal timing of epo agents. -GI made aware 09/09, will order OP EGD/colonoscopy at time of discharge and GI team will facilitateexpedited scheduling -Hb trending down to 7, 7.4, type and screen updated. Guiac stool neg 09/15. -Consented for blood transfusion, goal Hb > 7, give lasix 20 IV if giving blood. * Assessment & Plan Note - Maddi Aaron MD - 09/16/2021 3:45 PM CDT Associated Problem(s): Acute renal failure superimposed on stage 4 chronic kidney disease (CMS/HCC)(HCC) (Deleted) known CKD, likely 2/2 dm. Baseline Cr ~1.6, follows with nephrology outpatient. Cr 2.1 on admit w/ FEUrea 27% consistent with pre-renal injury such as cardiorenal syndrome, however normal LV/RV sys/diastolic function. Urinalysis with 1+ blood in setting of possible UTI. Cr improved initially after first dose of diuretics, worsened slightly with holding further diuresis & patient remained volume overloaded. -Ucx insignificant. -resumed IV diuresis 09/10, nonoliguric. -Daily electrolytes and renal function, unable to monitor strict I/O in s/o urinary incontinence, following serial weights. Avoid geller, if possible. - hold nephrotoxic agents/renally dose medications -F/u Cr 1.8-2.3 -High Density Press Operator to meet with family regarding diet restriction education. Attempted to reach daughter with update 09/16, line yudi. * Assessment & Plan Note - Maddi Aaron MD - 09/16/2021 3:42 PM CDT Associated Problem(s): Volume overload Due to progressive CRF4. Presents with increasing [...] on day of admission but held 9?) &further worsened with diuretics. Patient appears grossly volume [...] - renal consulted regarding volume management, possible financial compliance manager dialysis planning, expedite OP f/u. Serologies and urine studies ordered. ED neg, compliments neg, cryoglobulin pending, ANCA pending, HIV neg. Continued -Added metolazone 2.5mg/daily per renal 09/13- with improving swelling, Cr bump to 2.33 so held further -Anticipate likely transition to PO agents prior to DC (?09/17) with ongoing clinical improvement. Goal weight 155lbs -Home with family at [place], board operator consulted to review salt restrictions. * Subjective & Objective - Maddi Aaron MD - 09/16/2021 8:44 AM CDT Daily Progress Note Division of Hospital Medicine Name: Barbara Chakraborty Today: September 16, 2021 : 1950 Age: 70 y.o. female Admit: 09/06/2021 Bed: [place] [id number] Subjective Chief complaint: Volume overload/anasarca 2/2 progressive CRF. Acute on CRF4. Proteinuria. 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 Cr 2.1 from 1.6 (b/l) on admit, CXR w/ trace pulm edema, UA neg, BNP 522. S/p lasix IV c/b slight bump in peak Cr 2.23, improved to 1.94 off diuretics, no assoc hyperkalemia. Diffuse anasarca on exam & IV diuresis (lasix 40 BID) resumed 09/10, I&Os with urinary incontinence, but dilma down 6kg since resuming diuresis. S/b renal, serology w/u & added metolazone daily 09/13-. F/u Cr 2.34, weight down 6.3kg since peak on 09/10. Diuresing to goal 155lbs. OT rec SNF, PT pending. Pt asking daily about going home. D/w daughter and reviewed progress, possible SANTOS. D/w renal and holding po metolazone (received 09/16 dose) & cont IV lasix. Pt sitting up in chair. Notes numb feet and asks why repeatedly. Pleasantly confused and cooperative with exam. No SOB. Objective Medications: Scheduled: atorvastatin, 40 mg, oral, Daily carvediloL, 12.5 mg, oral, BID with meals (bkfst, dinner) famotidine, 20 mg, oral, Daily ferrous sulfate, 65 mg of elemental iron, oral, Daily with breakfast furosemide, 40 mg, intravenous, Q12H SOL heparin, 5,000 Units, subcutaneous, Q8H SOL insulin glargine, 25 Units, subcutaneous, Nightly insulin lispro, 0-10 Units, subcutaneous, TID with meals insulin lispro, 0-5 Units, subcutaneous, Nightly insulin lispro, 8 Units, subcutaneous, TID with meals metOLazone, 2.5 mg, oral, Daily polyethylene glycol, 17 g, oral, Daily pregabalin, 150 mg, oral, Daily risperiDONE, 2 mg, oral, Nightly Infusions: PRN: acetaminophen capsaicin dextrose OR dextrose glucagon Vitals: 24hr Min/Max: Temp Min: 36.3 ??C (97.3 ??F) Max: 36.5 ??C (97.7 ??F) Pulse Min: 70 Max: 78 BP Min: 119/62 Max: 121/71 Resp Min: 16 Max: 17 SpO2 Min: 97 % Max: 98 % Most Recent: Vitals: 09/16/21 0510 BP: 121/71 Pulse: 74 Resp: 16 Temp: 36.5 ??C (97.7 ??F) SpO2: 97% Intake/Output Summary (Last 24 hours) at 09/16/2021 0844 Last data filed at 09/16/2021 0230 Gross per 24 hour Intake 1480 ml Output 800 ml Net 680 ml Physical Exam Vitals and nursing note reviewed. Constitutional: General: She is not in acute distress. Cognitive dysfunction, pleasantly agreeable. No behavioral issues. Appearance: She is obese. She is not ill-appearing or diaphoretic. Comments: Diffuse anasarca (upper and lower extremities) much improved, sitting in bed alert, conversational. Limited insight. Pleasant. HENT: Head: Normocephalic and atraumatic. Right Ear: External ear normal. Left Ear: External ear normal. Nose: Nose normal. No congestion or rhinorrhea. Mouth/Throat: Mouth: Mucous membranes are moist. Pharynx: Oropharynx is clear. No oropharyngeal exudate or posterior oropharyngeal erythema. Eyes: General: No scleral icterus. Extraocular Movements: Extraocular movements intact. Conjunctiva/sclera: Conjunctivae normal. Pupils: Pupils are equal, round, and reactive to light. Neck: Comments: Chest and neck with resolving edema. Cardiovascular: Rate and Rhythm: Normal rate and regular rhythm. Pulses: Normal pulses. Heart sounds: No murmur heard. No friction rub. No gallop. Pulmonary: Effort: Pulmonary effort is normal. No respiratory distress. Breath sounds: No stridor. No wheezing, rhonchi or rales. Comments: Decreased BS at bases bilaterally, shallow inpirations. No wheezing or rales appreciated. Chest: Chest wall: No tenderness. Abdominal: General: Bowel sounds are normal. There is no distension. Palpations: There is no mass. Tenderness: There is no abdominal tenderness. Hernia: No hernia is present. Comments: Obese, protuberant. No fluid wave appreciated. Musculoskeletal: General: Swelling markedly improved Cervical back: Normal range of motion and neck supple. Right lower leg: Edema present. Left lower leg: Edema present. Comments: RESOLVED pitting edema of Upper extremities, 1+pitting LE/pedal improving. 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 Skin: General: Skin is warm and dry. Capillary Refill: Capillary refill takes less than 2 seconds. Coloration: Skin is not jaundiced. Findings: No rash. Neurological: General: No focal deficit present. Mental Status: She is alert. Cranial Nerves: No cranial nerve deficit. Sensory: Sensory deficit present. Comments: Alert, oriented x3, but significant short term memory deficits, stocking glove distribution of neuropathy on hands, feet bilaterally and same conversation each day about neuropathy due to diabetes Oh I didn't know that . Psychiatric: Mood and Affect: Mood normal. Behavior: Behavior normal. Thought Content: Poor retention of new information, Repetitive comments. Lab/Diagnostic Review: Recent Results (from the past 36 hour(s)) POCT glucose Collection Time: 09/14/21 11:05 PM Result Value Ref Range Glucose, POC 165 70 - 199 mg/dL CBC with auto differential Collection Time: 09/14/21 11:31 PM Result Value Ref Range WBC 9.5 3.8 - 9.9 K/cumm Hgb 7.0 (L) 11.9 - 15.5 g/dL Hct 22.7 (L) 35.6 - 45.5 % Plt 316 150 - 400 K/cumm MPV 11.5 9.1 - 12.3 fL RBC 2.41 (L) 3.90 - 5.20 M/cumm MCV 94.2 81.3 - 96.4 fL MCH 29.0 27.1 - 33.3 pg MCHC 30.8 (L) 32.3 - 35.7 g/dL RDW CV 16.0 (H) 11.1 - 14.9 % RDW SD 55.1 (H) 35.7 - 48.1 fL NRBC abs 0.03 (H) 0.00 - 0.01 K/cumm Basic metabolic panel Collection Time: 09/14/21 11:31 PM Result Value Ref Range Sodium 145 135 - 145 mmol/L Potassium, pl 4.5 3.3 - 4.9 mmol/L Chloride 104 97 - 110 mmol/L CO2 28 22 - 32 mmol/L Anion gap 13 2 - 15 mmol/L BUN 59 (H) 8 - 25 mg/dL Creatinine 2.33 (H) 0.60 - 1.10 mg/dL Glucose 155 70 - 199 mg/dL Calcium 9.4 8.5 - 10.3 mg/dL Magnesium Collection Time: 09/14/21 11:31 PM Result Value Ref Range Magnesium 2.1 1.4 - 2.5 mg/dL Differential, auto Collection Time: 09/14/21 11:31 PM Result Value Ref Range Neutrophil abs 5.2 1.7 - 6.5 K/cumm Imm gran abs 0.1 0.0 - 0.1 K/cumm Lymphocyte abs 3.3 0.8 - 3.3 K/cumm Monocyte abs 0.8 0.2 - 0.8 K/cumm Eosinophil abs 0.2 0.0 - 0.5 K/cumm Basophil abs 0.0 0.0 - 0.1 K/cumm Neutrophil pct 54.3 % Imm gran pct 0.5 % Lymphocyte pct 34.2 % Monocyte pct 8.6 % Eosinophil pct 2.1 % Basophil pct 0.3 % eGFR Collection Time: 09/14/21 11:31 PM Result Value Ref Range eGFR 22 (L) 90 - 130 mL/min/1.73 m2 POCT glucose Collection Time: 09/15/21 8:03 AM Result Value Ref Range Glucose, POC 164 70 - 199 mg/dL POCT glucose Collection Time: 09/15/21 11:45 AM Result Value Ref Range Glucose, POC 221 (H) 70 - 199 mg/dL POCT glucose Collection Time: 09/15/21 5:07 PM Result Value Ref Range Glucose, POC 199 70 - 199 mg/dL CBC with auto differential Collection Time: 09/15/21 10:10 PM Result Value Ref Range WBC 10.3 (H) 3.8 - 9.9 K/cumm Hgb 7.4 (L) 11.9 - 15.5 g/dL Hct 23.3 (L) 35.6 - 45.5 % Plt 320 150 - 400 K/cumm MPV 11.3 9.1 - 12.3 fL RBC 2.49 (L) 3.90 - 5.20 M/cumm MCV 93.6 81.3 - 96.4 fL MCH 29.7 27.1 - 33.3 pg MCHC 31.8 (L) 32.3 - 35.7 g/dL RDW CV 16.2 (H) 11.1 - 14.9 % RDW SD 55.0 (H) 35.7 - 48.1 fL NRBC abs 0.00 0.00 - 0.01 K/cumm Basic metabolic panel Collection Time: 09/15/21 10:10 PM Result Value Ref Range Sodium 142 135 - 145 mmol/L Potassium, pl 4.8 3.3 - 4.9 mmol/L Chloride 102 97 - 110 mmol/L CO2 29 22 - 32 mmol/L Anion gap 11 2 - 15 mmol/L BUN 65 (H) 8 - 25 mg/dL Creatinine 2.34 (H) 0.60 - 1.10 mg/dL Glucose 210 (H) 70 - 199 mg/dL Calcium 9.4 8.5 - 10.3 mg/dL Magnesium Collection Time: 09/15/21 10:10 PM Result Value Ref Range Magnesium 2.1 1.4 - 2.5 mg/dL Differential, auto Collection Time: 09/15/21 10:10 PM Result Value Ref Range Neutrophil abs 5.9 1.7 - 6.5 K/cumm Imm gran abs 0.1 0.0 - 0.1 K/cumm Lymphocyte abs 3.2 0.8 - 3.3 K/cumm Monocyte abs 0.9 (H) 0.2 - 0.8 K/cumm Eosinophil abs 0.2 0.0 - 0.5 K/cumm Basophil abs 0.0 0.0 - 0.1 K/cumm Neutrophil pct 57.6 % Imm gran pct 0.5 % Lymphocyte pct 30.7 % Monocyte pct 8.7 % Eosinophil pct 2.2 % Basophil pct 0.3 % eGFR Collection Time: 09/15/21 10:10 PM Result Value Ref Range eGFR 22 (L) 90 - 130 mL/min/1.73 m2 POCT glucose Collection Time: 09/15/21 10:16 PM Result Value Ref Range Glucose, POC 206 (H) 70 - 199 mg/dL I have reviewed the laboratory results. Imaging Results: US Abdomen Complete Narrative: EXAMINATION: COMPLETE ABDOMINAL SONOGRAM HISTORY: 70-year-old woman with diabetes mellitus and acute on chronic kidney disease. She is hospitalized with anasarca. Evaluate for cirrhosis. COMPARISON: None FINDINGS: Liver: The liver is normal in size. The echotexture is normal. The echogenicity is normal. There is no surface nodularity. No focal solid lesions are visualized. Gallbladder: The gallbladder is normal in size. There are no stones or sludge within the gallbladder. There is no gallbladder wall thickening. Bile Duct: There is no intrahepatic bile duct dilatation. The diameter of the common duct is 5 mm in the mid segment and 2 mm in the distal segment. Kidneys: There is no hydronephrosis in the visualized portions of the kidneys. Pancreas: Pancreas is not well visualized due to overlying bowel gas. Spleen: The spleen is normal in size. Aorta: The proximal aorta is normal. Inferior vena cava: The proximal IVC is normal. Other Findings: There is a right pleural effusion. Impression: 1. No sonographic findings of cirrhosis. 2. Right pleural effusion. Dr. Bronson (associate professor of radiology) personally participated in sonographic imaging of this patient. ANAY Bernardo also participated in sonographic imaging of this patient. Dictated by: Cristo Bronson MD The radiology attending physician has personally reviewed this study, and had reviewed and/or edited this written report and agrees with it. Electronically signed by: Mayuri Gibson M.D. I have independently reviewed and interpreted CXR 2v 09/07 Minimally increased small right pleural effusion with mild right basilar atelectasis. No left pleural effusion. No pneumothorax. Cardiomediastinal silhouette is stable. Cr 1.91, 1.99, 2.23, 1.99, 1.94, 2.09 Ucx 09/07 insignificant TTE 09/10 Normal LV and RV size and systolic function. LVEF 69%. Normal global LV Myocardial longitudinal function and LV strain pattern. No significant valvular abnormalities noted. Estimated PA systolic pressure 40+RA(5-10) mmHg. Diastolic function is normal for age. LA is normal. Mild concentric LV hypertrophy. Normal Inferior vena cava. Normal aorta. No comparison study. Abd US 09/11 no cirrhosis, no hydronephrosis or hydroureter, +R pleural effusion TC 84, HDL 33 (low), LDL 20, TG 153 (elevated) C3 162, C4 34.7 (WNL), GBM Ab neg, HIV neg, ED neg ANCA, UIFix, pending HBV core and sAg, sAb cancelled by lab, reordered 09/16 SPEP kappa/lambda 2.02 (elevated), immunotyping results pending PRIOR Covid-19 RNA + on 08/13/2021 TTE 01/09/20 Normal left ventricular systolic function with no focal wall motion abnormalities. Normal left ventricular size. Normal left ventricular diastolic function. Ejection fraction is visually estimated at 67 %.The left atrium is normal in size. Normal left atrial pressure based on pulmonary vein inflow. The right atrium is normal in size. Right Ventricular Systolic Pressure could not be estimated due to inadequate visualization of TR jet. * Plan of Care - Jack Austin RN - 09/16/2021 5:04 AM CDT Goals: Clinical Goals for the Shift: VS and Lab monitoring, Monitor I&Os, pain management, keep pt safe and comfortable Summary: Problem: Health Behavior: Goal: Understanding of [...] home environment Outcome: Progressing Problem: Activity: Goal: Risk for activity intolerance will decrease Outcome: Progressing Problem: Lack of Knowledge: Goal: Knowledge of diagnostic tests will improve Outcome: Progressing Goal: Knowledge of disease or condition will improve Outcome: Progressing Goal: Knowledge of safety precautions will improve Outcome: Progressing Goal: Knowledge of the prescribed therapeutic regimen will improve Outcome: Progressing Problem: Health Behavior: Goal: Ability to state signs and symptoms to report to health care provider will improve Outcome: Progressing Problem: Physical Regulation: Goal: Ability to maintain clinical measurements within normal limits will improve Outcome: Progressing Problem: Infection Risk: Goal: Will remain free from infection Outcome: Progressing Problem: Safety: Goal: Ability to remain free from injury will improve Outcome: Progressing Goal: Will remain free from falls Outcome: Progressing Problem: Self-Care: Goal: Ability to participate in self-care as condition permits will improve Outcome: Progressing Problem: Sensory: Goal: Pain level will decrease Outcome: Progressing Goal: Ability to develop a pain control plan will improve Outcome: Progressing Problem: Skin Integrity: Goal: Risk for impaired skin integrity will decrease Outcome: Progressing Problem: Tissue Perfusion: Goal: Risk factors for ineffective tissue perfusion will decrease Outcome: Progressing Problem: Activity: Goal: Risk for activity intolerance will decrease Outcome: Progressing Problem: Lack of Knowledge: Goal: Knowledge of diagnostic tests will improve Outcome: Progressing Goal: Knowledge of disease or condition will improve Outcome: Progressing Goal: Knowledge of safety precautions will improve Outcome: Progressing Goal: Knowledge of the prescribed therapeutic regimen will improve Outcome: Progressing Problem: Health Behavior: Goal: Ability to state signs and symptoms to report to health care provider will improve Outcome: Progressing Problem: Physical Regulation: Goal: Ability to maintain clinical measurements within normal limits will improve Outcome: Progressing Problem: Infection Risk: Goal: Will remain free from infection Outcome: Progressing Problem: Safety: Goal: Ability to remain free from injury will improve Outcome: Progressing Goal: Will remain free from falls Outcome: Progressing Problem: Self-Care: Goal: Ability to participate in self-care as condition permits will improve Outcome: Progressing Problem: Sensory: Goal: Pain level will decrease Outcome: Progressing Goal: Ability to develop a pain control plan will improve Outcome: Progressing Problem: Skin Integrity: Goal: Risk for impaired skin integrity will decrease Outcome: Progressing Problem: Tissue Perfusion: Goal: Risk factors for ineffective tissue perfusion will decrease Outcome: Progressing * Plan of Pee - Macey Stafford RN - 09/15/2021 6:55 PM CDT Goals: Clinical Goals for the Shift: VSS; Strict I&O'S Summary: Problem: Health Behavior: Goal: Understanding of [...] home environment Outcome: Progressing Problem: Activity: Goal: Risk for activity intolerance will decrease Outcome: Progressing Problem: Lack of Knowledge: Goal: Knowledge of diagnostic tests will improve Outcome: Progressing Goal: Knowledge of disease or condition will improve Outcome: Progressing Goal: Knowledge of safety precautions will improve Outcome: Progressing Goal: Knowledge of the prescribed therapeutic regimen will improve Outcome: Progressing Problem: Health Behavior: Goal: Ability to state signs and symptoms to report to health care provider will improve Outcome: Progressing Problem: Physical Regulation: Goal: Ability to maintain clinical measurements within normal limits will improve Outcome: Progressing Problem: Infection Risk: Goal: Will remain free from infection Outcome: Progressing Problem: Safety: Goal: Ability to remain free from injury will improve Outcome: Progressing Goal: Will remain free from falls Outcome: Progressing Problem: Self-Care: Goal: Ability to participate in self-care as condition permits will improve Outcome: Progressing Problem: Sensory: Goal: Pain level will decrease Outcome: Progressing Goal: Ability to develop a pain control plan will improve Outcome: Progressing Problem: Skin Integrity: Goal: Risk for impaired skin integrity will decrease Outcome: Progressing Problem: Tissue Perfusion: Goal: Risk factors for ineffective tissue perfusion will decrease Outcome: Progressing Problem: Activity: Goal: Risk for activity intolerance will decrease Outcome: Progressing Problem: Lack of Knowledge: Goal: Knowledge of diagnostic tests will improve Outcome: Progressing Goal: Knowledge of disease or condition will improve Outcome: Progressing Goal: Knowledge of safety precautions will improve Outcome: Progressing Goal: Knowledge of the prescribed therapeutic regimen will improve Outcome: Progressing Problem: Health Behavior: Goal: Ability to state signs and symptoms to report to health care provider will improve Outcome: Progressing Problem: Physical Regulation: Goal: Ability to maintain clinical measurements within normal limits will improve Outcome: Progressing Problem: Infection Risk: Goal: Will remain free from infection Outcome: Progressing Problem: Safety: Goal: Ability to remain free from injury will improve Outcome: Progressing Goal: Will remain free from falls Outcome: Progressing Problem: Self-Care: Goal: Ability to participate in self-care as condition permits will improve Outcome: Progressing Problem: Sensory: Goal: Pain level will decrease Outcome: Progressing Goal: Ability to develop a pain control plan will improve Outcome: Progressing Problem: Skin Integrity: Goal: Risk for impaired skin integrity will decrease Outcome: Progressing Problem: Tissue Perfusion: Goal: Risk factors for ineffective tissue perfusion will decrease Outcome: Progressing * Assessment & Plan Note - Maddi Aaron MD - 09/15/2021 3:41 PM CDT Associated Problem(s): Diabetic neuropathy (HCC) (Resolved 05/16/2024) Ongoing symptoms. Previously on lyrica and Likely exacerbated by volume status. Monitor for response with diuresis, improved with less swelling. No longer acute issue. * Assessment & Plan Note - Maddi Aaron MD - 09/15/2021 3:40 PM CDT Associated Problem(s): Type 2 diabetes mellitus with diabetic neuropathy, with long-term current use of insulin (HCC) Home regimen lantus 18, lispro 5 TID [...] and nephropathy. Med oversight by family at [place]. * Assessment & Plan Note - Maddi Aaron MD - 09/15/2021 3:40 PM CDT Associated Problem(s): Schizoaffective disorder, bipolar type (CMS/HCC) (HCC) (Deleted) Hx of schizoaffective disorder, follows with psych outpatient. Earlier in year had been on daily haldol, weaned off due to increased fatigue. Currently no active psychotic manic symptoms, mood is stable and pleasant, cooperative with exam, testing and management. Continued home risperdal 2mg BID, remains alert. * Assessment & Plan Note - Maddi Aaron MD - 09/15/2021 3:40 PM CDT Associated Problem(s): Dementia (HCC) (Deleted) Reported baseline dementia, `AOX2-3. Corroborated by daughter who she lives with. Frequent hospitalizations this year. Suspect med compliance may be an issue. Currently at baseline neurological status -delirium precautions - PT rec 24 supervision with family, OT rec SNF. Spoke with Daughter Honey Gayle [phone]. CM following for dispo planning. [facility] orders placed 09/13. Pt's daughter states she works, but has daughter who could be available during that time. Asking about additional resources for home care. CM notified & additional resources provided. Plan home at [place] with 24hr supervision. * Assessment & Plan Note - Maddi Aarno MD - 09/15/2021 3:38 PM CDT Associated Problem(s): Anemia (Deleted) Progressive anemia with Hb 7.1 (dilutional?) from 9.7 over past month ago. 1+ blood in urine, neg cx. Pt denies gross hematuria, epistaxis, melena, hematochezia, hematemesis. Low FeSat, ferritin decreased to 179. Recent normal B12/Folate. Consistent with mixed AOCD/HECTOR. Concerning for occult bleeding, but Hb stable. More likely related to CRF. -Started oral iron supplementation -suspect anemia in s/o progressive CRF. Defer to renal timing of epo agents. -GI made aware 09/09, will order OP EGD/colonoscopy at time of discharge and GI team will facilitateexpedited scheduling -Hb trending down to 7, type and screen tonight. Guiac stool. -Consented for blood transfusion, goal Hb > 7, give lasix 20 IV if giving blood. * Assessment & Plan Note - Maddi Aaron MD - 09/15/2021 3:38 PM CDT Associated Problem(s): Acute renal failure superimposed on stage 4 chronic kidney disease (CMS/HCC)(HCC) (Deleted) known CKD, likely 2/2 dm. Baseline Cr ~1.6, follows with nephrology outpatient. Cr 2.1 on admit w/ FEUrea 27% consistent with pre-renal injury such as cardiorenal syndrome, however normal LV/RV sys/diastolic function. Urinalysis with 1+ blood in setting of possible UTI. Cr improved initially after first dose of diuretics, worsened slightly with holding further diuresis & patient remained volume overloaded. -Ucx insignificant. -resumed IV diuresis 09/10, nonoliguric. -Daily electrolytes and renal function, unable to monitor strict I/O in s/o urinary incontinence, following serial weights. Avoid geller, if possible. - hold nephrotoxic agents/renally dose medications -F/u Cr 1.8-2.3 -High Density Press Operator to meet with family regarding diet restriction education. * Assessment & Plan Note - Maddi Aaron MD - 09/15/2021 3:36 PM CDT Associated Problem(s): Volume overload Due to progressive CRF4. Presents with increasing [...] on day of admission but held 9?) &further worsened with diuretics. Patient appears grossly volume [...] - renal consulted regarding volume management, possible financial compliance manager dialysis planning, expedite OP f/u. Serologies and urine studies ordered. -Added metolazone 2.5mg/daily per renal. -Anticipate likely transition to PO agents prior to DC with ongoing clinical improvement. Goal weight 145-150lbs -Home with family at [place], board operator consulted to review salt restrictions. * Plan of Care - Pham Peña RN - 09/15/2021 2:27 PM CDT Discharge plan discussed with MD Aaron. Patient is not medically ready for discharge today. CM will continue to follow for discharge needs. For weekend assistance, please contact the on-call weekendcase business information manager at #[phone]. For emergency needs after 4:30 pm, please call the construction trades teacher [phone]. For weekend/holiday needs from 8:00 a.m. - 4:30 p.m., please call the Weekend Manager Man[employer] [phone]. BEKA Hankins, box toe maker * Subjective & Objective - Maddi Aaron MD - 09/15/2021 9:32 AM CDT Daily Progress Note Division of Hospital Medicine Name: Barbara Chakraborty Today: September 15, 2021 : 1950 Age: 70 y.o. female Admit: 09/06/2021 Bed: [place] [id number] Subjective Chief complaint: Volume overload/anasarca. Acute on CRF4. Proteinuria. 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 Cr 2.1 from 1.6 (b/l) on admit, CXR w/ trace pulm edema, BNP 522. S/p lasix IV c/b slight bump in peak Cr 2.23, improved to 1.94 off diuretics, no assoc hyperkalemia. Diffuse anasarca on exam & IV diuresis resumed 09/10, I&Os with urinary incontinence, but dilma down 6kg since resuming diuresis. S/b renal, serologies Added metolazone daily 09/12. F/uCr 2.33, nonoliguric. Diffuse edema continues to improve on exam, but Rpt weight up, repeat ordered. Await dispo arrangements for safe DC. Objective Medications: Scheduled: atorvastatin, 40 mg, oral, Daily carvediloL, 12.5 mg, oral, BID with meals (bkfst, dinner) famotidine, 20 mg, oral, Daily ferrous sulfate, 65 mg of elemental iron, oral, Daily with breakfast furosemide, 40 mg, intravenous, Q12H SOL heparin, 5,000 Units, subcutaneous, Q8H SOL insulin glargine, 25 Units, subcutaneous, Nightly insulin lispro, 0-10 Units, subcutaneous, TID with meals insulin lispro, 0-5 Units, subcutaneous, Nightly insulin lispro, 8 Units, subcutaneous, TID with meals metOLazone, 2.5 mg, oral, Daily polyethylene glycol, 17 g, oral, Daily pregabalin, 150 mg, oral, Daily risperiDONE, 2 mg, oral, Nightly Infusions: PRN: acetaminophen capsaicin dextrose OR dextrose glucagon Vitals: 24hr Min/Max: Temp Min: 36.6 ??C (97.9 ??F) Max: 37.2 ??C (99 ??F) Pulse Min: 65 Max: 75 BP Min: 104/42 Max: 130/57 Resp Min: 16 Max: 16 SpO2 Min: 95 % Max: 98 % Most Recent: Vitals: 09/15/21 0835 BP: 125/51 Pulse: 65 Resp: 16 Temp: 36.6 ??C (97.9 ??F) SpO2: Intake/Output Summary (Last 24 hours) at 09/15/2021 0932 Last data filed at 09/15/2021 0307 Gross per 24 hour Intake -- Output 1400 ml Net -1400 ml Physical Exam Vitals and nursing note reviewed. Constitutional: General: She is not in acute distress. Cognitive dysfunction, pleasantly agreeable. No behavioral issues. Appearance: She is obese. She is not ill-appearing or diaphoretic. Comments: Diffuse anasarca (upper and lower extremities) much improved, sitting in bed alert, conversational. Limited insight. Pleasant. HENT: Head: Normocephalic and atraumatic. Right Ear: External ear normal. Left Ear: External ear normal. Nose: Nose normal. No congestion or rhinorrhea. Mouth/Throat: Mouth: Mucous membranes are moist. Pharynx: Oropharynx is clear. No oropharyngeal exudate or posterior oropharyngeal erythema. Eyes: General: No scleral icterus. Extraocular Movements: Extraocular movements intact. Conjunctiva/sclera: Conjunctivae normal. Pupils: Pupils are equal, round, and reactive to light. Neck: Comments: Chest and neck with resolving edema. Cardiovascular: Rate and Rhythm: Normal rate and regular rhythm. Pulses: Normal pulses. Heart sounds: No murmur heard. No friction rub. No gallop. Pulmonary: Effort: Pulmonary effort is normal. No respiratory distress. Breath sounds: No stridor. No wheezing, rhonchi or rales. Comments: Decreased BS at bases bilaterally, shallow inpirations. No wheezing or rales appreciated. Chest: Chest wall: No tenderness. Abdominal: General: Bowel sounds are normal. There is no distension. Palpations: There is no mass. Tenderness: There is no abdominal tenderness. Hernia: No hernia is present. Comments: Obese, protuberant. No fluid wave appreciated. Musculoskeletal: General: Swelling markedly improved Cervical back: Normal range of motion and neck supple. Right lower leg: Edema present. Left lower leg: Edema present. Comments: RESOLVED pitting edema of Upper extremities, 1+pitting LE/pedal. 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 Skin: General: Skin is warm and dry. Capillary Refill: Capillary refill takes less than 2 seconds. Coloration: Skin is not jaundiced. Findings: No rash. Neurological: General: No focal deficit present. Mental Status: She is alert. Cranial Nerves: No cranial nerve deficit. Sensory: Sensory deficit present. Comments: Alert, oriented x3, but significant short term memory deficits, stocking glove distribution of neuropathy on hands, feet bilaterally and same conversation each day about neuropathy due to diabetes Oh I didn't know that . Psychiatric: Mood and Affect: Mood normal. Behavior: Behavior normal. Thought Content: Poor retention of new information, Repetitive comments. Lab/Diagnostic Review: Recent Results (from the past 36 hour(s)) C3 complement Collection Time: 09/13/21 9:35 PM Result Value Ref Range Complement C3 162.0 90.0 - 180.0 mg/dL C4 complement Collection Time: 09/13/21 9:35 PM Result Value Ref Range Complement C4 34.7 10.0 - 40.0 mg/dL Glomerular basement membrane antibodies Collection Time: 09/13/21 9:35 PM Result Value Ref Range GBM ab, IgG <0.2 <=0.9 Ab Index Protein Electrophoresis, With Reflex, Serum Collection Time: 09/13/21 9:35 PM Result Value Ref Range Protein, sr 6.8 6.2 - 8.2 g/dL Immunoglobulin free light chains Collection Time: 09/13/21 9:35 PM Result Value Ref Range [place]/Lambda ratio 2.02 (H) 0.26 - 1.65 [place] free light chain 7.65 (H) 0.33 - 1.94 mg/dL Lambda free light chain 3.79 (H) 0.57 - 2.63 mg/dL HIV 1/2 Antibody plus p24 Antigen Blood Collection Time: 09/13/21 9:35 PM Specimen: Blood Result Value Ref Range HIV 1/2 Ab + p24 Ag Nonreactive Nonreactive CBC with auto differential Collection Time: 09/13/21 9:35 PM Result Value Ref Range WBC 9.7 3.8 - 9.9 K/cumm Hgb 7.5 (L) 11.9 - 15.5 g/dL Hct 24.7 (L) 35.6 - 45.5 % Plt 300 150 - 400 K/cumm MPV 11.7 9.1 - 12.3 fL RBC 2.63 (L) 3.90 - 5.20 M/cumm MCV 93.9 81.3 - 96.4 fL MCH 28.5 27.1 - 33.3 pg MCHC 30.4 (L) 32.3 - 35.7 g/dL RDW CV 16.2 (H) 11.1 - 14.9 % RDW SD 54.8 (H) 35.7 - 48.1 fL NRBC abs 0.00 0.00 - 0.01 K/cumm Magnesium Collection Time: 09/13/21 9:35 PM Result Value Ref Range Magnesium 2.1 1.4 - 2.5 mg/dL Differential, auto Collection Time: 09/13/21 9:35 PM Result Value Ref Range Neutrophil abs 5.6 1.7 - 6.5 K/cumm Imm gran abs 0.1 0.0 - 0.1 K/cumm Lymphocyte abs 3.0 0.8 - 3.3 K/cumm Monocyte abs 0.7 0.2 - 0.8 K/cumm Eosinophil abs 0.3 0.0 - 0.5 K/cumm Basophil abs 0.0 0.0 - 0.1 K/cumm Neutrophil pct 58.0 % Imm gran pct 0.5 % Lymphocyte pct 31.2 % Monocyte pct 7.3 % Eosinophil pct 2.7 % Basophil pct 0.3 % Basic metabolic panel, serum Collection Time: 09/13/21 9:35 PM Result Value Ref Range Sodium 142 135 - 145 mmol/L Potassium, sr 4.7 3.6 - 5.2 mmol/L Chloride 103 97 - 110 mmol/L CO2 27 22 - 32 mmol/L Anion gap 12 2 - 15 mmol/L BUN 52 (H) 8 - 25 mg/dL Creatinine 1.95 (H) 0.60 - 1.10 mg/dL Glucose 169 70 - 199 mg/dL Calcium 9.7 8.5 - 10.3 mg/dL eGFR Collection Time: 09/13/21 9:35 PM Result Value Ref Range eGFR 27 (L) 90 - 130 mL/min/1.73 m2 POCT glucose Collection Time: 09/13/21 9:46 PM Result Value Ref Range Glucose, POC 165 70 - 199 mg/dL POCT glucose Collection Time: 09/14/21 9:26 AM Result Value Ref Range Glucose, POC 166 70 - 199 mg/dL POCT glucose Collection Time: 09/14/21 11:36 AM Result Value Ref Range Glucose, POC 189 70 - 199 mg/dL Protein / creatinine ratio, urine, random Collection Time: 09/14/21 11:49 AM Result Value Ref Range Protein, ur, quant 48.8 mg/dL Creatinine Ur 62.8 mg/dL Protein/creatinine ratio 777.1 (H) 0.0 - 180.0 mg/g CR Albumin Creatinine Ratio, Urine Collection Time: 09/14/21 11:49 AM Result Value Ref Range Albumin Ur 314.0 mg/L Creatinine Ur 62.8 mg/dL Albumin Creatinine Ratio, Ur 500 (H) 1 - 29 mg/g POCT glucose Collection Time: 09/14/21 5:15 PM Result Value Ref Range Glucose, POC 199 70 - 199 mg/dL POCT glucose Collection Time: 09/14/21 11:05 PM Result Value Ref Range Glucose, POC 165 70 - 199 mg/dL CBC with auto differential Collection Time: 09/14/21 11:31 PM Result Value Ref Range WBC 9.5 3.8 - 9.9 K/cumm Hgb 7.0 (L) 11.9 - 15.5 g/dL Hct 22.7 (L) 35.6 - 45.5 % Plt 316 150 - 400 K/cumm MPV 11.5 9.1 - 12.3 fL RBC 2.41 (L) 3.90 - 5.20 M/cumm MCV 94.2 81.3 - 96.4 fL MCH 29.0 27.1 - 33.3 pg MCHC 30.8 (L) 32.3 - 35.7 g/dL RDW CV 16.0 (H) 11.1 - 14.9 % RDW SD 55.1 (H) 35.7 - 48.1 fL NRBC abs 0.03 (H) 0.00 - 0.01 K/cumm Basic metabolic panel Collection Time: 09/14/21 11:31 PM Result Value Ref Range Sodium 145 135 - 145 mmol/L Potassium, pl 4.5 3.3 - 4.9 mmol/L Chloride 104 97 - 110 mmol/L CO2 28 22 - 32 mmol/L Anion gap 13 2 - 15 mmol/L BUN 59 (H) 8 - 25 mg/dL Creatinine 2.33 (H) 0.60 - 1.10 mg/dL Glucose 155 70 - 199 mg/dL Calcium 9.4 8.5 - 10.3 mg/dL Magnesium Collection Time: 09/14/21 11:31 PM Result Value Ref Range Magnesium 2.1 1.4 - 2.5 mg/dL Differential, auto Collection Time: 09/14/21 11:31 PM Result Value Ref Range Neutrophil abs 5.2 1.7 - 6.5 K/cumm Imm gran abs 0.1 0.0 - 0.1 K/cumm Lymphocyte abs 3.3 0.8 - 3.3 K/cumm Monocyte abs 0.8 0.2 - 0.8 K/cumm Eosinophil abs 0.2 0.0 - 0.5 K/cumm Basophil abs 0.0 0.0 - 0.1 K/cumm Neutrophil pct 54.3 % Imm gran pct 0.5 % Lymphocyte pct 34.2 % Monocyte pct 8.6 % Eosinophil pct 2.1 % Basophil pct 0.3 % eGFR Collection Time: 09/14/21 11:31 PM Result Value Ref Range eGFR 22 (L) 90 - 130 mL/min/1.73 m2 POCT glucose Collection Time: 09/15/21 8:03 AM Result Value Ref Range Glucose, POC 164 70 - 199 mg/dL I have reviewed the laboratory results. Imaging Results: US Abdomen Complete Narrative: EXAMINATION: COMPLETE ABDOMINAL SONOGRAM HISTORY: 70-year-old woman with diabetes mellitus and acute on chronic kidney disease. She is hospitalized with anasarca. Evaluate for cirrhosis. COMPARISON: None FINDINGS: Liver: The liver is normal in size. The echotexture is normal. The echogenicity is normal. There is no surface nodularity. No focal solid lesions are visualized. Gallbladder: The gallbladder is normal in size. There are no stones or sludge within the gallbladder. There is no gallbladder wall thickening. Bile Duct: There is no intrahepatic bile duct dilatation. The diameter of the common duct is 5 mm in the mid segment and 2 mm in the distal segment. Kidneys: There is no hydronephrosis in the visualized portions of the kidneys. Pancreas: Pancreas is not well visualized due to overlying bowel gas. Spleen: The spleen is normal in size. Aorta: The proximal aorta is normal. Inferior vena cava: The proximal IVC is normal. Other Findings: There is a right pleural effusion. Impression: 1. No sonographic findings of cirrhosis. 2. Right pleural effusion. Dr. Bronson (associate professor of radiology) personally participated in sonographic imaging of this patient. ANAY Bernardo also participated in sonographic imaging of this patient. Dictated by: Cristo Bronson MD The radiology attending physician has personally reviewed this study, and had reviewed and/or edited this written report and agrees with it. Electronically signed by: Mayuri Gibson M.D. I have independently reviewed and interpreted CXR 2v 09/07 Minimally increased small right pleural effusion with mild right basilar atelectasis. No left pleural effusion. No pneumothorax. Cardiomediastinal silhouette is stable. Cr 1.91, 1.99, 2.23, 1.99, 1.94, 2.09 Ucx 09/07 insignificant TTE 09/10 Normal LV and RV size and systolic function. LVEF 69%. Normal global LV Myocardial longitudinal function and LV strain pattern. No significant valvular abnormalities noted. Estimated PA systolic pressure 40+RA(5-10) mmHg. Diastolic function is normal for age. LA is normal. Mild concentric LV hypertrophy. Normal Inferior vena cava. Normal aorta. No comparison study. Abd US 09/11 no cirrhosis, no hydronephrosis or hydroureter, +R pleural effusion TC 84, HDL 33 (low), LDL 20, TG 153 (elevated) C3 162, C4 34.7 (WNL), GBM Ab neg, HIV neg ED, ANCA, SPEP, UIFix, HBV core and sAg, sAb still pending PRIOR Covid-19 RNA + on 08/13/2021 TTE 01/09/20 Normal left ventricular systolic function with no focal wall motion abnormalities. Normal left ventricular size. Normal left ventricular diastolic function. Ejection fraction is visually estimated at 67 %.The left atrium is normal in size. Normal left atrial pressure based on pulmonary vein inflow. The right atrium is normal in size. Right Ventricular Systolic Pressure could not be estimated due to inadequate visualization of TR jet. * Plan of Care - Balta Smith RN - 09/15/2021 4:00 AM CDT Problem: Health Behavior: Goal: Understanding of discharge needs will improve Outcome: Progressing Problem: Lack of Knowledge: Goal: Ability to state ways to decrease the risk of falls will improve Outcome: Progressing Problem: Safety: Goal: Will remain free from falls Outcome: Progressing Problem: Activity: Goal: Risk for activity intolerance will decrease Outcome: Progressing Goals: Clinical Goals for the Shift: VSS, strict I&Os, monitor BG Summary: * Plan of Care - Macey Stafford RN - 09/14/2021 5:27 PM CDT Goals: Clinical Goals for the Shift: VSS, strict I&Os, monitor BG Summary: Problem: Health Behavior: Goal: Understanding of [...] home environment Outcome: Progressing Problem: Activity: Goal: Risk for activity intolerance will decrease Outcome: Progressing Problem: Lack of Knowledge: Goal: Knowledge of diagnostic tests will improve Outcome: Progressing Goal: Knowledge of disease or condition will improve Outcome: Progressing Goal: Knowledge of safety precautions will improve Outcome: Progressing Goal: Knowledge of the prescribed therapeutic regimen will improve Outcome: Progressing Problem: Health Behavior: Goal: Ability to state signs and symptoms to report to health care provider will improve Outcome: Progressing Problem: Physical Regulation: Goal: Ability to maintain clinical measurements within normal limits will improve Outcome: Progressing Problem: Infection Risk: Goal: Will remain free from infection Outcome: Progressing Problem: Safety: Goal: Ability to remain free from injury will improve Outcome: Progressing Goal: Will remain free from falls Outcome: Progressing Problem: Self-Care: Goal: Ability to participate in self-care as condition permits will improve Outcome: Progressing Problem: Sensory: Goal: Pain level will decrease Outcome: Progressing Goal: Ability to develop a pain control plan will improve Outcome: Progressing Problem: Skin Integrity: Goal: Risk for impaired skin integrity will decrease Outcome: Progressing Problem: Tissue Perfusion: Goal: Risk factors for ineffective tissue perfusion will decrease Outcome: Progressing Problem: Activity: Goal: Risk for activity intolerance will decrease Outcome: Progressing Problem: Lack of Knowledge: Goal: Knowledge of diagnostic tests will improve Outcome: Progressing Goal: Knowledge of disease or condition will improve Outcome: Progressing Goal: Knowledge of safety precautions will improve Outcome: Progressing Goal: Knowledge of the prescribed therapeutic regimen will improve Outcome: Progressing Problem: Health Behavior: Goal: Ability to state signs and symptoms to report to health care provider will improve Outcome: Progressing Problem: Physical Regulation: Goal: Ability to maintain clinical measurements within normal limits will improve Outcome: Progressing Problem: Infection Risk: Goal: Will remain free from infection Outcome: Progressing Problem: Safety: Goal: Ability to remain free from injury will improve Outcome: Progressing Goal: Will remain free from falls Outcome: Progressing Problem: Self-Care: Goal: Ability to participate in self-care as condition permits will improve Outcome: Progressing Problem: Sensory: Goal: Pain level will decrease Outcome: Progressing Goal: Ability to develop a pain control plan will improve Outcome: Progressing Problem: Skin Integrity: Goal: Risk for impaired skin integrity will decrease Outcome: Progressing Problem: Tissue Perfusion: Goal: Risk factors for ineffective tissue perfusion will decrease Outcome: Progressing * Significant Event - Maddi Aaron MD - 09/14/2021 3:02 PM CDT Spoke with patient's daughter Areli Gayle and reviewed progress, anticipated 1-2d more of IV diuresis. Discussed diet restrictions and board operator reaching out, she is agreeable. Discussed stages of kidney failure, expected etiology of pt's CRF and management with medications and stages of organ failure and when dialysis is typically initiated. Started GOC discussions. Maddi Aaron MD * Assessment & Plan Note - Maddi Aaron MD - 09/14/2021 12:23 PM CDT Associated Problem(s): Diabetic neuropathy (HCC) (Resolved 05/16/2024) Ongoing symptoms. Previously on lyrica and Likely exacerbated by volume status. Monitor for response with diuresis, improved with less swelling. No longer acute issue. * Assessment & Plan Note - Maddi Aaron MD - 09/14/2021 12:22 PM CDT Associated Problem(s): Type 2 diabetes mellitus with diabetic neuropathy, with long-term current use of insulin (HCC) Home regimen lantus 18, lispro 5 TID AC + SSI, had recently had trulicity held due to renal function. Follows with endocrinology outpatient. A1c 8.4. Requiring multiple units of SSI daily. Continue home statin -Increased glargine to 24=>25 units qPM this admit, lispro to 8units TID, continue SSI and ADA diet. Complicated by diabetic neuropathy and nephropathy. * Assessment & Plan Note - Maddi Aaron MD - 09/14/2021 12:22 PM CDT Associated Problem(s): Schizoaffective disorder, bipolar type (CMS/HCC) (HCC) (Deleted) Hx of schizoaffective disorder, follows with psych outpatient. Earlier in year had been on daily haldol, weaned off due to increased fatigue. Currently no active psychotic manic symptoms, mood is stable and pleasant, cooperative with exam, testing and management. Continued home risperdal 2mg BID, remains alert. * Assessment & Plan Note - Maddi Aaron MD - 09/14/2021 12:21 PM CDT Associated Problem(s): Dementia (HCC) (Deleted) Reported baseline dementia, `AOX2-3. Corroborated by daughter who she lives with. Frequent hospitalizations this year. Suspect med compliance may be an issue. Currently at baseline neurological status -delirium precautions - PT rec 24 supervision with family, OT rec SNF. Spoke with Daughter Honey Gayle [phone]. CM following for dispo planning. C orders placed 09/13. Pt's daughter states she works, but has daughter who could be available during that time. Asking about additional resources for home care. CM notified & additional resources provided. Plan home at [place]. * Assessment & Plan Note - Maddi Aaron MD - 09/14/2021 12:20 PM CDT Associated Problem(s): Anemia (Deleted) Progressive anemia with Hb 7.1 (dilutional?) from 9.7 over past month ago. 1+ blood in urine, neg cx. Pt denies gross hematuria, epistaxis, melena, hematochezia, hematemesis. Low FeSat, ferritin decreased to 179. Recent normal B12/Folate. Consistent with mixed AOCD/HECTOR. Concerning for occult bleeding, but Hb stable. More likely related to CRF. -Started oral iron supplementation -suspect anemia in s/o progressive CRF. Defer to renal timing of epo agents. -GI made aware 09/09, will order OP EGD/colonoscopy at time of discharge and GI team will facilitateexpedited scheduling -Hb stable around 7.5. -Consented for blood transfusion, goal Hb > 7, give lasix 20 IV if giving blood. * Assessment & Plan Note - Maddi Aaron MD - 09/14/2021 12:20 PM CDT Associated Problem(s): Acute renal failure superimposed on stage 4 chronic kidney disease (CMS/HCC)(HCC) (Deleted) known CKD, likely 2/2 dm. Baseline Cr ~1.6, follows with nephrology outpatient. Cr 2.1 on admit w/ FEUrea 27% consistent with pre-renal injury such as cardiorenal syndrome, however normal LV/RV sys/diastolic function. Urinalysis with 1+ blood in setting of possible UTI. Cr improved initially after first dose of diuretics, worsened slightly with holding further diuresis & patient remained volume overloaded. -Ucx insignificant. -resumed IV diuresis 09/10, nonoliguric. -Daily electrolytes and renal function, unable to monitor strict I/O in s/o urinary incontinence, following serial weights. Avoid geller, if possible. - hold nephrotoxic agents/renally dose medications -F/u Cr 1.8 * Assessment & Plan Note - Maddi Aaron MD - 09/14/2021 12:19 PM CDT Associated Problem(s): Volume overload Due to progressive CRF4. Presents with increasing [...] on day of admission but held 9?) &further worsened with diuretics. Patient appears grossly volume [...] with ongoing clinical improvement. Goal weight 145-150lbs * Subjective & Objective - Maddi Aaron MD - 09/14/2021 9:52 AM CDT Daily Progress Note Division of Hospital Medicine Name: Barbara Chakraborty Today: September 14, 2021 : 1950 Age: 70 y.o. female Admit: 09/06/2021 Bed: [id number] Subjective Chief complaint: Volume overload/anasarca. Acute on CRF4. Proteinuria. 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 Cr 2.1 from 1.6 (b/l) on admit, CXR w/ trace pulm edema, BNP 522. S/p lasix IV c/b slight bump in peak Cr 2.23, improved to 1.94 off diuretics, no assoc hyperkalemia. Diffuse anasarca on exam & IV diuresis resumed 09/10, I&Os with urinary incontinence, but dilma down 6kg since resuming diuresis. S/b renal, serologies Added metolazone daily 09/12. F/uCr 1.95. Awaiting volume improvement, weight down to 73kg. Await dispo arrangements for safe DC. Objective Medications: Scheduled: atorvastatin, 40 mg, oral, Daily carvediloL, 12.5 mg, oral, BID with meals (bkfst, dinner) famotidine, 20 mg, oral, Daily ferrous sulfate, 65 mg of elemental iron, oral, Daily with breakfast furosemide, 40 mg, oral, Daily heparin, 5,000 Units, subcutaneous, Q8H SOL insulin glargine, 25 Units, subcutaneous, Nightly insulin lispro, 0-10 Units, subcutaneous, TID with meals insulin lispro, 0-5 Units, subcutaneous, Nightly insulin lispro, 8 Units, subcutaneous, TID with meals polyethylene glycol, 17 g, oral, Daily pregabalin, 150 mg, oral, Daily risperiDONE, 2 mg, oral, Nightly Infusions: PRN: acetaminophen capsaicin dextrose OR dextrose glucagon Vitals: 24hr Min/Max: Temp Min: 36.7 ??C (98.1 ??F) Max: 36.8 ??C (98.2 ??F) Pulse Min: 72 Max: 77 BP Min: 122/53 Max: 135/68 Resp Min: 18 Max: 20 SpO2 Min: 95 % Max: 97 % Most Recent: Vitals: 09/14/21 0929 BP: 124/47 Pulse: 72 Resp: Temp: SpO2: Intake/Output Summary (Last 24 hours) at 09/14/2021 0952 Last data filed at 09/14/2021 0925 Gross per 24 hour Intake 720 ml Output 1000 ml Net -280 ml Physical Exam Vitals and nursing note reviewed. Constitutional: General: She is not in acute distress. Cognitive dysfunction, pleasantly agreeable. No behavioral issues. Appearance: She is obese. She is not ill-appearing or diaphoretic. Comments: Diffuse anasarca much improved, sitting in bed alert, conversational. Limited insight. Pleasant. HENT: Head: Normocephalic and atraumatic. Right Ear: External ear normal. Left Ear: External ear normal. Nose: Nose normal. No congestion or rhinorrhea. Mouth/Throat: Mouth: Mucous membranes are moist. Pharynx: Oropharynx is clear. No oropharyngeal exudate or posterior oropharyngeal erythema. Eyes: General: No scleral icterus. Extraocular Movements: Extraocular movements intact. Conjunctiva/sclera: Conjunctivae normal. Pupils: Pupils are equal, round, and reactive to light. Neck: Comments: Chest and neck with resolving edema. Cardiovascular: Rate and Rhythm: Normal rate and regular rhythm. Pulses: Normal pulses. Heart sounds: No murmur heard. No friction rub. No gallop. Pulmonary: Effort: Pulmonary effort is normal. No respiratory distress. Breath sounds: No stridor. No wheezing, rhonchi or rales. Comments: Decreased BS at bases bilaterally, shallow inpirations. No wheezing or rales appreciated. Chest: Chest wall: No tenderness. Abdominal: General: Bowel sounds are normal. There is no distension. Palpations: There is no mass. Tenderness: There is no abdominal tenderness. Hernia: No hernia is present. Comments: Obese, protuberant. No fluid wave appreciated. Musculoskeletal: General: Swelling markedly improved Cervical back: Normal range of motion and neck supple. Right lower leg: Edema present. Left lower leg: Edema present. Comments: RESOLVED pitting edema of Upper extremities, 1+pitting LE/pedal. 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 Skin: General: Skin is warm and dry. Capillary Refill: Capillary refill takes less than 2 seconds. Coloration: Skin is not jaundiced. Findings: No rash. Neurological: General: No focal deficit present. Mental Status: She is alert. Cranial Nerves: No cranial nerve deficit. Sensory: Sensory deficit present. Comments: Alert, oriented, stocking glove distribution of neuropathy on hands, feet bilaterally. Psychiatric: Mood and Affect: Mood normal. Behavior: Behavior normal. Thought Content: Thought content normal. Lab/Diagnostic Review: Recent Results (from the past 36 hour(s)) POCT glucose Collection Time: 09/13/21 8:39 AM Result Value Ref Range Glucose, POC 133 70 - 199 mg/dL POCT glucose Collection Time: 09/13/21 1:34 PM Result Value Ref Range Glucose, POC 190 70 - 199 mg/dL POCT glucose Collection Time: 09/13/21 6:07 PM Result Value Ref Range Glucose, POC 159 70 - 199 mg/dL Sodium, urine, random Collection Time: 09/13/21 7:39 PM Result Value Ref Range Sodium, ur 82 mmol/L Potassium, urine, random Collection Time: 09/13/21 7:39 PM Result Value Ref Range Potassium conc, ur 20.8 mmol/L Chloride, urine, random Collection Time: 09/13/21 7:39 PM Result Value Ref Range Chloride, ur 69 mmol/L C3 complement Collection Time: 09/13/21 9:35 PM Result Value Ref Range Complement C3 162.0 90.0 - 180.0 mg/dL C4 complement Collection Time: 09/13/21 9:35 PM Result Value Ref Range Complement C4 34.7 10.0 - 40.0 mg/dL Protein Electrophoresis, With Reflex, Serum Collection Time: 09/13/21 9:35 PM Result Value Ref Range Protein, sr 6.8 6.2 - 8.2 g/dL HIV 1/2 Antibody plus p24 Antigen Blood Collection Time: 09/13/21 9:35 PM Specimen: Blood Result Value Ref Range HIV 1/2 Ab + p24 Ag Nonreactive Nonreactive CBC with auto differential Collection Time: 09/13/21 9:35 PM Result Value Ref Range WBC 9.7 3.8 - 9.9 K/cumm Hgb 7.5 (L) 11.9 - 15.5 g/dL Hct 24.7 (L) 35.6 - 45.5 % Plt 300 150 - 400 K/cumm MPV 11.7 9.1 - 12.3 fL RBC 2.63 (L) 3.90 - 5.20 M/cumm MCV 93.9 81.3 - 96.4 fL MCH 28.5 27.1 - 33.3 pg MCHC 30.4 (L) 32.3 - 35.7 g/dL RDW CV 16.2 (H) 11.1 - 14.9 % RDW SD 54.8 (H) 35.7 - 48.1 fL NRBC abs 0.00 0.00 - 0.01 K/cumm Magnesium Collection Time: 09/13/21 9:35 PM Result Value Ref Range Magnesium 2.1 1.4 - 2.5 mg/dL Differential, auto Collection Time: 09/13/21 9:35 PM Result Value Ref Range Neutrophil abs 5.6 1.7 - 6.5 K/cumm Imm gran abs 0.1 0.0 - 0.1 K/cumm Lymphocyte abs 3.0 0.8 - 3.3 K/cumm Monocyte abs 0.7 0.2 - 0.8 K/cumm Eosinophil abs 0.3 0.0 - 0.5 K/cumm Basophil abs 0.0 0.0 - 0.1 K/cumm Neutrophil pct 58.0 % Imm gran pct 0.5 % Lymphocyte pct 31.2 % Monocyte pct 7.3 % Eosinophil pct 2.7 % Basophil pct 0.3 % Basic metabolic panel, serum Collection Time: 09/13/21 9:35 PM Result Value Ref Range Sodium 142 135 - 145 mmol/L Potassium, sr 4.7 3.6 - 5.2 mmol/L Chloride 103 97 - 110 mmol/L CO2 27 22 - 32 mmol/L Anion gap 12 2 - 15 mmol/L BUN 52 (H) 8 - 25 mg/dL Creatinine 1.95 (H) 0.60 - 1.10 mg/dL Glucose 169 70 - 199 mg/dL Calcium 9.7 8.5 - 10.3 mg/dL eGFR Collection Time: 09/13/21 9:35 PM Result Value Ref Range eGFR 27 (L) 90 - 130 mL/min/1.73 m2 POCT glucose Collection Time: 09/13/21 9:46 PM Result Value Ref Range Glucose, POC 165 70 - 199 mg/dL POCT glucose Collection Time: 09/14/21 9:26 AM Result Value Ref Range Glucose, POC 166 70 - 199 mg/dL I have reviewed the laboratory results. Imaging Results: US Abdomen Complete Narrative: EXAMINATION: COMPLETE ABDOMINAL SONOGRAM HISTORY: 70-year-old woman with diabetes mellitus and acute on chronic kidney disease. She is hospitalized with anasarca. Evaluate for cirrhosis. COMPARISON: None FINDINGS: Liver: The liver is normal in size. The echotexture is normal. The echogenicity is normal. There is no surface nodularity. No focal solid lesions are visualized. Gallbladder: The gallbladder is normal in size. There are no stones or sludge within the gallbladder. There is no gallbladder wall thickening. Bile Duct: There is no intrahepatic bile duct dilatation. The diameter of the common duct is 5 mm in the mid segment and 2 mm in the distal segment. Kidneys: There is no hydronephrosis in the visualized portions of the kidneys. Pancreas: Pancreas is not well visualized due to overlying bowel gas. Spleen: The spleen is normal in size. Aorta: The proximal aorta is normal. Inferior vena cava: The proximal IVC is normal. Other Findings: There is a right pleural effusion. Impression: 1. No sonographic findings of cirrhosis. 2. Right pleural effusion. Dr. Bronson (associate professor of radiology) personally participated in sonographic imaging of this patient. ANAY Bernardo also participated in sonographic imaging of this patient. Dictated by: Cristo Bronson MD The radiology attending physician has personally reviewed this study, and had reviewed and/or edited this written report and agrees with it. Electronically signed by: Mayuri Gibson M.D. I have independently reviewed and interpreted CXR 2v 09/07 Minimally increased small right pleural effusion with mild right basilar atelectasis. No left pleural effusion. No pneumothorax. Cardiomediastinal silhouette is stable. Cr 1.91, 1.99, 2.23, 1.99, 1.94, 2.09 Ucx 09/07 insignificant TTE 09/10 Normal LV and RV size and systolic function. LVEF 69%. Normal global LV Myocardial longitudinal function and LV strain pattern. No significant valvular abnormalities noted. Estimated PA systolic pressure 40+RA(5-10) mmHg. Diastolic function is normal for age. LA is normal. Mild concentric LV hypertrophy. Normal Inferior vena cava. Normal aorta. No comparison study. Abd US 09/11 no cirrhosis, no hydronephrosis or hydroureter, +R pleural effusion TC 84, HDL 33 (low), LDL 20, TG 153 (elevated) C3 162, C4 34.7 (WNL), GBM Ab neg, HIV neg ED, ANCA, SPEP, UIFix, HBV core and sAg, sAb pending PRIOR Covid-19 RNA + on 08/13/2021 TTE 01/09/20 Normal left ventricular systolic function with no focal wall motion abnormalities. Normal left ventricular size. Normal left ventricular diastolic function. Ejection fraction is visually estimated at 67 %.The left atrium is normal in size. Normal left atrial pressure based on pulmonary vein inflow. The right atrium is normal in size. Right Ventricular Systolic Pressure could not be estimated due to inadequate visualization of TR jet. * Plan of Care - RyeDemetri emanuel RN - 09/13/2021 8:50 PM CDT Problem: Health Behavior: Goal: Understanding [...] home environment Outcome: Progressing Problem: Activity: Goal: Risk for activity intolerance will decrease Outcome: Progressing Problem: Lack of Knowledge: Goal: Knowledge of diagnostic tests will improve Outcome: Progressing Goal: Knowledge of disease or condition will improve Outcome: Progressing Goal: Knowledge of safety precautions will improve Outcome: Progressing Goal: Knowledge of the prescribed therapeutic regimen will improve Outcome: Progressing Problem: Health Behavior: Goal: Ability to state signs and symptoms to report to health care provider will improve Outcome: Progressing Problem: Physical Regulation: Goal: Ability to maintain clinical measurements within normal limits will improve Outcome: Progressing Problem: Infection Risk: Goal: Will remain free from infection Outcome: Progressing Problem: Safety: Goal: Ability to remain free from injury will improve Outcome: Progressing Goal: Will remain free from falls Outcome: Progressing Problem: Self-Care: Goal: Ability to participate in self-care as condition permits will improve Outcome: Progressing Problem: Sensory: Goal: Pain level will decrease Outcome: Progressing Goal: Ability to develop a pain control plan will improve Outcome: Progressing Problem: Skin Integrity: Goal: Risk for impaired skin integrity will decrease Outcome: Progressing Problem: Tissue Perfusion: Goal: Risk factors for ineffective tissue perfusion will decrease Outcome: Progressing Problem: Activity: Goal: Risk for activity intolerance will decrease Outcome: Progressing Problem: Lack of Knowledge: Goal: Knowledge of diagnostic tests will improve Outcome: Progressing Goal: Knowledge of disease or condition will improve Outcome: Progressing Goal: Knowledge of safety precautions will improve Outcome: Progressing Goal: Knowledge of the prescribed therapeutic regimen will improve Outcome: Progressing Problem: Health Behavior: Goal: Ability to state signs and symptoms to report to health care provider will improve Outcome: Progressing Problem: Physical Regulation: Goal: Ability to maintain clinical measurements within normal limits will improve Outcome: Progressing Problem: Infection Risk: Goal: Will remain free from infection Outcome: Progressing Problem: Safety: Goal: Ability to remain free from injury will improve Outcome: Progressing Goal: Will remain free from falls Outcome: Progressing Problem: Self-Care: Goal: Ability to participate in self-care as condition permits will improve Outcome: Progressing Problem: Sensory: Goal: Pain level will decrease Outcome: Progressing Goal: Ability to develop a pain control plan will improve Outcome: Progressing Problem: Skin Integrity: Goal: Risk for impaired skin integrity will decrease Outcome: Progressing Problem: Tissue Perfusion: Goal: Risk factors for ineffective tissue perfusion will decrease Outcome: Progressing Goals: Clinical Goals for the Shift: VSS, strict I&Os, monitor BG Summary: Pt has episodes of altered perception. Large blood draw sent, urine sent, Pt fatigued * Assessment & Plan Note - Maddi Aaron MD - 09/13/2021 4:13 PM CDT Associated Problem(s): Diabetic neuropathy (HCC) (Resolved 05/16/2024) Ongoing symptoms. Previously on lyrica and Likely exacerbated by volume status. Monitor for response with diuresis, improved with less swelling. * Assessment & Plan Note - Maddi Aaron MD - 09/13/2021 4:12 PM CDT Associated Problem(s): Type 2 diabetes mellitus with diabetic neuropathy, with long-term current use of insulin (HCC) Home regimen lantus 18, lispro 5 TID AC + SSI, had recently had trulicity held due to renal function. Follows with endocrinology outpatient. A1c 8.4. Requiring multiple units of SSI daily. -Continue home statin -Increased glargine to 24=>25 units qPM, lispro to 8units TID, continue SSI and ADA diet. Complicated by diabetic neuropathy and nephropathy. * Assessment & Plan Note - Maddi Aaron MD - 09/13/2021 4:12 PM CDT Associated Problem(s): Schizoaffective disorder, bipolar type (CMS/HCC) (HCC) (Deleted) Hx of schizoaffective disorder, follows with psych outpatient. Earlier in year had been on daily haldol, weaned off due to increased fatigue. - currently no active psychotic manic symptoms, mood is stable and pleasant, cooperative with exam,testing and management. - continue home risperdal 2mg BID, remains alert. * Plan of Care - Rosa M Wallace RN - 09/13/2021 4:00 PM CDT Goals: Clinical Goals for the Shift: VSS, strict I&Os, monitor BG Summary: Problem: Health Behavior: Goal: Understanding of [...] home environment Outcome: Progressing Problem: Activity: Goal: Risk for activity intolerance will decrease Outcome: Progressing Problem: Lack of Knowledge: Goal: Knowledge of diagnostic tests will improve Outcome: Progressing Goal: Knowledge of disease or condition will improve Outcome: Progressing Goal: Knowledge of safety precautions will improve Outcome: Progressing Goal: Knowledge of the prescribed therapeutic regimen will improve Outcome: Progressing Problem: Health Behavior: Goal: Ability to state signs and symptoms to report to health care provider will improve Outcome: Progressing Problem: Health Behavior: Goal: Ability to state signs and symptoms to report to health care provider will improve Outcome: Progressing Problem: Physical Regulation: Goal: Ability to maintain clinical measurements within normal limits will improve Outcome: Progressing Problem: Infection Risk: Goal: Will remain free from infection Outcome: Progressing Problem: Safety: Goal: Ability to remain free from injury will improve Outcome: Progressing Goal: Will remain free from falls Outcome: Progressing Problem: Sensory: Goal: Pain level will decrease Outcome: Progressing Goal: Ability to develop a pain control plan will improve Outcome: Progressing Problem: Skin Integrity: Goal: Risk for impaired skin integrity will decrease Outcome: Progressing Problem: Tissue Perfusion: Goal: Risk factors for ineffective tissue perfusion will decrease Outcome: Progressing Problem: Lack of Knowledge: Goal: Knowledge of diagnostic tests will improve Outcome: Progressing Goal: Knowledge of disease or condition will improve Outcome: Progressing Goal: Knowledge of safety precautions will improve Outcome: Progressing Goal: Knowledge of the prescribed therapeutic regimen will improve Outcome: Progressing Problem: Health Behavior: Goal: Ability to state signs and symptoms to report to health care provider will improve Outcome: Progressing Problem: Physical Regulation: Goal: Ability to maintain clinical measurements within normal limits will improve Outcome: Progressing Problem: Infection Risk: Goal: Will remain free from infection Outcome: Progressing Problem: Safety: Goal: Ability to remain free from injury will improve Outcome: Progressing Goal: Will remain free from falls Outcome: Progressing Problem: Self-Care: Goal: Ability to participate in self-care as condition permits will improve Outcome: Progressing Problem: Skin Integrity: Goal: Risk for impaired skin integrity will decrease Outcome: Progressing Problem: Tissue Perfusion: Goal: Risk factors for ineffective tissue perfusion will decrease Outcome: Progressing * Assessment & Plan Note - Maddi Aaron MD - 09/13/2021 3:53 PM CDT Associated Problem(s): Dementia (HCC) (Deleted) Reported baseline dementia, `AOX2-3. Corroborated by daughter who she lives with. Frequent hospitalizations this year. Suspect med compliance may be an issue. Currently at baseline neurological status -delirium precautions - PT OT Eval underway, PT rec 24 supervision with family, OT rec SNF. Spoke with Daughter Honey Gayle [phone]. CM following for dispo planning. HHC orders placed 09/13. Pt's daughter states she works, but has daughter who could be available during that time. Asking about additional resources for home care. CM notified. * Assessment & Plan Note - Maddi Aaron MD - 09/13/2021 3:51 PM CDT Associated Problem(s): Anemia (Deleted) Progressive anemia with Hb 7.1 (dilutional?) from 9.7 over past month ago. 1+ blood in urine, neg cx. Pt denies gross hematuria, epistaxis, melena, hematochezia, hematemesis. Low FeSat, ferritin decreased to 179. Recent normal B12/Folate. Consistent with mixed AOCD/HCETOR. Concerning for occult bleeding, but Hb stable. More likely related to CRF. -Started oral iron supplementation -suspect anemia in s/o progressive CRF. Defer to renal timing of epo agents. -GI made aware 09/09, will order OP EGD/colonoscopy at time of discharge and GI team will facilitateexpedited scheduling -Hb trending up with diuresis, around 10 -Consented for blood transfusion, goal Hb > 7, give lasix 20 IV if giving blood * Assessment & Plan Note - Maddi Aaron MD - 09/13/2021 3:51 PM CDT Associated Problem(s): Acute renal failure superimposed on stage 4 chronic kidney disease (CMS/HCC)(HCC) (Deleted) known CKD, likely 2/2 dm. Baseline Cr ~1.6, follows with nephrology outpatient. Cr 2.1 on admit w/ FEUrea 27% consistent with pre-renal injury such as cardiorenal syndrome, however normal LV/RV sys/diastolic function. Urinalysis with 1+ blood in setting of possible UTI. Cr improved initially after first dose of diuretics, worsened slightly with holding further diuresis & patient remained volume overloaded. -Ucx insignif -resumed IV diuresis 09/10 -Daily electrolytes and renal function, unable to monitor strict I/O in s/o urinary incontinence, following serial weights. Avoid geller, if possible. - hold nephrotoxic agents/renally dose medications * Plan of Care - Perico Lua RN - 09/13/2021 1:01 PM CDT Per DCAM, not med ready for DC today, ADD . Will need order/DC summary faxed to [facility]. * Provider Query - Maddi Aaron MD - 09/13/2021 8:40 AM CDT Specify the acuity of HFpEF and document in the medical record and on the form below. Clinical Indicators/Treatments: 09/06 Medicine H&P: Acute on chronic HFpEF documented. 6 lb weight gain. 1+ extremity edema. CXRwith pleural effusion. pBNP 522 09/07 Medicine progress note: Possible HF exacerbation. No pulmonary edema on CXR. 09/10 Medicine progress note: Volume overload. TTE with normal LV/RV function. LVEF 69%. Suspect volume issues due to HTN/diabetic nephropathy. On telemetry, strict I/O. ___ Acute (Exacerbated/decompensated) ___ Acute on Chronic ___ Chronic stable condition (Compensated) ___ Other, specify below ___ Clinically unable to determine ___ No CHF Additional Provider Response: No evidence of CHF chronic or otherwise. Use of terms such as likely, suspected, possible, or probable (associated with a specific diagnosisthat is being evaluated, monitored, or treated as if it exists) are acceptable and can be coded in the inpatient setting when documented at the time of discharge. This documentation will become part of the patient's medical record. Sincerely, Dilia Tolentino RN BSN CCDS Clinical Staff Midwife/Apprenticeship Director [facility] [phone] [email or web address] Assessment & Plan Note - Maddi Aaron MD - 09/13/2021 8:08 AM CDT Associated Problem(s): Volume overload Due to progressive CRF4. Presents with increasing [...] on day of admission but held 9?) &further worsened with diuretics. Patient appears grossly volume [...] PO agents later today with clinical improvement. * Subjective & Objective - Maddi Aaron MD - 09/13/2021 8:00 AM CDT Daily Progress Note Division of Hospital Medicine Name: Barbara Chakraborty Today: September 13, 2021 : 1950 Age: 70 y.o. female Admit: 09/06/2021 Bed: [place] [id number] Subjective Chief complaint: Volume overload/anasarca. Acute on CRF4. Proteinuria. 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 Cr 2.1 from 1.6 (b/l) on admit, CXR w/ trace pulm edema, BNP 522. S/p lasix IV c/b slight bump in peak Cr 2.23, improved to 1.94 off diuretics, no assoc hyperkalemia. Diffuse anasarca on exam & IV diuresis resumed 09/10, I&Os with urinary incontinence, but eight down 5kg/72hrs since resuming diuresis. F/u Cr 2.09. S/b renal and recs noted, orders for further serologies/urine studies placed. Less edematous on exam, resolving. Objective Medications: Scheduled: amLODIPine, 10 mg, oral, Daily atorvastatin, 40 mg, oral, Daily famotidine, 20 mg, oral, Daily ferrous sulfate, 65 mg of elemental iron, oral, Daily with breakfast furosemide, 40 mg, intravenous, BID DIURETIC heparin, 5,000 Units, subcutaneous, Q8H SOL insulin glargine, 25 Units, subcutaneous, Nightly insulin lispro, 0-10 Units, subcutaneous, TID with meals insulin lispro, 0-5 Units, subcutaneous, Nightly insulin lispro, 8 Units, subcutaneous, TID with meals polyethylene glycol, 17 g, oral, Daily pregabalin, 150 mg, oral, Daily risperiDONE, 2 mg, oral, Nightly Infusions: PRN: acetaminophen capsaicin dextrose OR dextrose glucagon Vitals: 24hr Min/Max: Temp Min: 36.6 ??C (97.9 ??F) Max: 36.9 ??C (98.4 ??F) Pulse Min: 72 Max: 78 BP Min: 107/50 Max: 128/56 Resp Min: 16 Max: 18 SpO2 Min: 94 % Max: 96 % Most Recent: Vitals: 09/13/21 0400 BP: 116/52 Pulse: 75 Resp: 18 Temp: 36.9 ??C (98.4 ??F) SpO2: 94% Intake/Output Summary (Last 24 hours) at 09/13/2021 0800 Last data filed at 09/12/2021 2000 Gross per 24 hour Intake 250 ml Output 550 ml Net -300 ml Physical Exam Vitals and nursing note reviewed. Constitutional: General: She is not in acute distress. Cognitive dysfunction, pleasantly agreeable. No behavioral issues. Appearance: She is obese. She is not ill-appearing or diaphoretic. Comments: Diffuse anasarca, sitting in chair, alert, conversational. HENT: Head: Normocephalic and atraumatic. Right Ear: External ear normal. Left Ear: External ear normal. Nose: Nose normal. No congestion or rhinorrhea. Mouth/Throat: Mouth: Mucous membranes are moist. Pharynx: Oropharynx is clear. No oropharyngeal exudate or posterior oropharyngeal erythema. Eyes: General: No scleral icterus. Extraocular Movements: Extraocular movements intact. Conjunctiva/sclera: Conjunctivae normal. Pupils: Pupils are equal, round, and reactive to light. Neck: Comments: Chest and neck with edema. Cardiovascular: Rate and Rhythm: Normal rate and regular rhythm. Pulses: Normal pulses. Heart sounds: No murmur heard. No friction rub. No gallop. Pulmonary: Effort: Pulmonary effort is normal. No respiratory distress. Breath sounds: No stridor. No wheezing, rhonchi or rales. Comments: Decreased BS at bases bilaterally, shallow inpirations. No wheezing or rales appreciated. Chest: Chest wall: No tenderness. Abdominal: General: Bowel sounds are normal. There is no distension. Palpations: There is no mass. Tenderness: There is no abdominal tenderness. Hernia: No hernia is present. Comments: Obese, protuberant. No fluid wave appreciated. Musculoskeletal: General: Swelling markedly improved Cervical back: Normal range of motion and neck supple. Right lower leg: Edema present. Left lower leg: Edema present. Comments: RESOLVED pitting edema of U/L extremities. 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 Skin: General: Skin is warm and dry. Capillary Refill: Capillary refill takes less than 2 seconds. Coloration: Skin is not jaundiced. Findings: No rash. Neurological: General: No focal deficit present. Mental Status: She is alert. Cranial Nerves: No cranial nerve deficit. Sensory: Sensory deficit present. Comments: Alert, oriented, stocking glove distribution of neuropathy on hands, feet bilaterally. Psychiatric: Mood and Affect: Mood normal. Behavior: Behavior normal. Thought Content: Thought content normal. Lab/Diagnostic Review: Recent Results (from the past 36 hour(s)) POCT glucose Collection Time: 09/11/21 8:06 PM Result Value Ref Range Glucose, POC 239 (H) 70 - 199 mg/dL CBC with auto differential Collection Time: 09/11/21 10:35 PM Result Value Ref Range WBC 10.0 (H) 3.8 - 9.9 K/cumm Hgb 7.5 (L) 11.9 - 15.5 g/dL Hct 23.5 (L) 35.6 - 45.5 % Plt 272 150 - 400 K/cumm MPV 11.3 9.1 - 12.3 fL RBC 2.53 (L) 3.90 - 5.20 M/cumm MCV 92.9 81.3 - 96.4 fL MCH 29.6 27.1 - 33.3 pg MCHC 31.9 (L) 32.3 - 35.7 g/dL RDW CV 16.2 (H) 11.1 - 14.9 % RDW SD 54.1 (H) 35.7 - 48.1 fL NRBC abs 0.03 (H) 0.00 - 0.01 K/cumm Basic metabolic panel Collection Time: 09/11/21 10:35 PM Result Value Ref Range Sodium 143 135 - 145 mmol/L Potassium, pl 4.2 3.3 - 4.9 mmol/L Chloride 104 97 - 110 mmol/L CO2 27 22 - 32 mmol/L Anion gap 12 2 - 15 mmol/L BUN 48 (H) 8 - 25 mg/dL Creatinine 1.98 (H) 0.60 - 1.10 mg/dL Glucose 173 70 - 199 mg/dL Calcium 9.2 8.5 - 10.3 mg/dL Magnesium Collection Time: 09/11/21 10:35 PM Result Value Ref Range Magnesium 1.9 1.4 - 2.5 mg/dL Differential, auto Collection Time: 09/11/21 10:35 PM Result Value Ref Range Neutrophil abs 6.1 1.7 - 6.5 K/cumm Imm gran abs 0.1 0.0 - 0.1 K/cumm Lymphocyte abs 2.8 0.8 - 3.3 K/cumm Monocyte abs 0.7 0.2 - 0.8 K/cumm Eosinophil abs 0.2 0.0 - 0.5 K/cumm Basophil abs 0.0 0.0 - 0.1 K/cumm Neutrophil pct 61.1 % Imm gran pct 0.6 % Lymphocyte pct 28.3 % Monocyte pct 7.3 % Eosinophil pct 2.3 % Basophil pct 0.4 % eGFR Collection Time: 09/11/21 10:35 PM Result Value Ref Range eGFR 27 (L) 90 - 130 mL/min/1.73 m2 POCT glucose Collection Time: 09/12/21 8:02 AM Result Value Ref Range Glucose, POC 148 70 - 199 mg/dL POCT glucose Collection Time: 09/12/21 1:12 PM Result Value Ref Range Glucose, POC 180 70 - 199 mg/dL POCT glucose Collection Time: 09/12/21 4:32 PM Result Value Ref Range Glucose, POC 188 70 - 199 mg/dL CBC with auto differential Collection Time: 09/12/21 8:59 PM Result Value Ref Range WBC 10.3 (H) 3.8 - 9.9 K/cumm Hgb 7.5 (L) 11.9 - 15.5 g/dL Hct 24.5 (L) 35.6 - 45.5 % Plt 305 150 - 400 K/cumm MPV 11.6 9.1 - 12.3 fL RBC 2.61 (L) 3.90 - 5.20 M/cumm MCV 93.9 81.3 - 96.4 fL MCH 28.7 27.1 - 33.3 pg MCHC 30.6 (L) 32.3 - 35.7 g/dL RDW CV 16.0 (H) 11.1 - 14.9 % RDW SD 54.4 (H) 35.7 - 48.1 fL NRBC abs 0.02 (H) 0.00 - 0.01 K/cumm Magnesium Collection Time: 09/12/21 8:59 PM Result Value Ref Range Magnesium 1.9 1.4 - 2.5 mg/dL Differential, auto Collection Time: 09/12/21 8:59 PM Result Value Ref Range Neutrophil abs 6.6 (H) 1.7 - 6.5 K/cumm Imm gran abs 0.1 0.0 - 0.1 K/cumm Lymphocyte abs 2.7 0.8 - 3.3 K/cumm Monocyte abs 0.7 0.2 - 0.8 K/cumm Eosinophil abs 0.2 0.0 - 0.5 K/cumm Basophil abs 0.0 0.0 - 0.1 K/cumm Neutrophil pct 63.5 % Imm gran pct 0.7 % Lymphocyte pct 26.4 % Monocyte pct 7.0 % Eosinophil pct 2.0 % Basophil pct 0.4 % Basic metabolic panel, serum Collection Time: 09/12/21 8:59 PM Result Value Ref Range Sodium 141 135 - 145 mmol/L Potassium, sr 4.6 3.6 - 5.2 mmol/L Chloride 104 97 - 110 mmol/L CO2 25 22 - 32 mmol/L Anion gap 12 2 - 15 mmol/L BUN 47 (H) 8 - 25 mg/dL Creatinine 2.09 (H) 0.60 - 1.10 mg/dL Glucose 199 70 - 199 mg/dL Calcium 9.1 8.5 - 10.3 mg/dL eGFR Collection Time: 09/12/21 8:59 PM Result Value Ref Range eGFR 25 (L) 90 - 130 mL/min/1.73 m2 POCT glucose Collection Time: 09/12/21 9:03 PM Result Value Ref Range Glucose, POC 216 (H) 70 - 199 mg/dL I have reviewed the laboratory results. Imaging Results: US Abdomen Complete Narrative: EXAMINATION: COMPLETE ABDOMINAL SONOGRAM HISTORY: 70-year-old woman with diabetes mellitus and acute on chronic kidney disease. She is hospitalized with anasarca. Evaluate for cirrhosis. COMPARISON: None FINDINGS: Liver: The liver is normal in size. The echotexture is normal. The echogenicity is normal. There is no surface nodularity. No focal solid lesions are visualized. Gallbladder: The gallbladder is normal in size. There are no stones or sludge within the gallbladder. There is no gallbladder wall thickening. Bile Duct: There is no intrahepatic bile duct dilatation. The diameter of the common duct is 5 mm in the mid segment and 2 mm in the distal segment. Kidneys: There is no hydronephrosis in the visualized portions of the kidneys. Pancreas: Pancreas is not well visualized due to overlying bowel gas. Spleen: The spleen is normal in size. Aorta: The proximal aorta is normal. Inferior vena cava: The proximal IVC is normal. Other Findings: There is a right pleural effusion. Impression: 1. No sonographic findings of cirrhosis. 2. Right pleural effusion. Dr. Bronson (associate professor of radiology) personally participated in sonographic imaging of this patient. ANAY Bernardo also participated in sonographic imaging of this patient. Dictated by: Cristo Bronson MD The radiology attending physician has personally reviewed this study, and had reviewed and/or edited this written report and agrees with it. Electronically signed by: Mayuri Gibson M.D. I have independently reviewed and interpreted CXR 2v 09/07 Minimally increased small right pleural effusion with mild right basilar atelectasis. No left pleural effusion. No pneumothorax. Cardiomediastinal silhouette is stable. Cr 1.91, 1.99, 2.23, 1.99, 1.94, 2.09 Ucx 09/07 insignificant TTE 09/10 Normal LV and RV size and systolic function. LVEF 69%. Normal global LV Myocardial longitudinal function and LV strain pattern. No significant valvular abnormalities noted. Estimated PA systolic pressure 40+RA(5-10) mmHg. Diastolic function is normal for age. LA is normal. Mild concentric LV hypertrophy. Normal Inferior vena cava. Normal aorta. No comparison study. Abd US 09/11 no cirrhosis, no hydronephrosis or hydroureter, +R pleural effusion TC 84, HDL 33 (low), LDL 20, TG 153 (elevated) PRIOR Covid-19 RNA + on 08/13/2021 TTE 01/09/20 Normal left ventricular systolic function with no focal wall motion abnormalities. Normal left ventricular size. Normal left ventricular diastolic function. Ejection fraction is visually estimated at 67 %.The left atrium is normal in size. Normal left atrial pressure based on pulmonary vein inflow. The right atrium is normal in size. Right Ventricular Systolic Pressure could not be estimated due to inadequate visualization of TR jet. * Plan of Care - Demetri Huff RN - 09/12/2021 8:52 PM CDT Problem: Health Behavior: Goal: Understanding [...] home environment Outcome: Progressing Problem: Activity: Goal: Risk for activity intolerance will decrease Outcome: Progressing Problem: Lack of Knowledge: Goal: Knowledge of diagnostic tests will improve Outcome: Progressing Goal: Knowledge of disease or condition will improve Outcome: Progressing Goal: Knowledge of safety precautions will improve Outcome: Progressing Goal: Knowledge of the prescribed therapeutic regimen will improve Outcome: Progressing Problem: Health Behavior: Goal: Ability to state signs and symptoms to report to health care provider will improve Outcome: Progressing Problem: Physical Regulation: Goal: Ability to maintain clinical measurements within normal limits will improve Outcome: Progressing Problem: Infection Risk: Goal: Will remain free from infection Outcome: Progressing Problem: Safety: Goal: Ability to remain free from injury will improve Outcome: Progressing Goal: Will remain free from falls Outcome: Progressing Problem: Self-Care: Goal: Ability to participate in self-care as condition permits will improve Outcome: Progressing Problem: Sensory: Goal: Pain level will decrease Outcome: Progressing Goal: Ability to develop a pain control plan will improve Outcome: Progressing Problem: Skin Integrity: Goal: Risk for impaired skin integrity will decrease Outcome: Progressing Problem: Tissue Perfusion: Goal: Risk factors for ineffective tissue perfusion will decrease Outcome: Progressing Problem: Activity: Goal: Risk for activity intolerance will decrease Outcome: Progressing Problem: Lack of Knowledge: Goal: Knowledge of diagnostic tests will improve Outcome: Progressing Goal: Knowledge of disease or condition will improve Outcome: Progressing Goal: Knowledge of safety precautions will improve Outcome: Progressing Goal: Knowledge of the prescribed therapeutic regimen will improve Outcome: Progressing Problem: Health Behavior: Goal: Ability to state signs and symptoms to report to health care provider will improve Outcome: Progressing Problem: Physical Regulation: Goal: Ability to maintain clinical measurements within normal limits will improve Outcome: Progressing Problem: Infection Risk: Goal: Will remain free from infection Outcome: Progressing Problem: Safety: Goal: Ability to remain free from injury will improve Outcome: Progressing Goal: Will remain free from falls Outcome: Progressing Problem: Self-Care: Goal: Ability to participate in self-care as condition permits will improve Outcome: Progressing Problem: Sensory: Goal: Pain level will decrease Outcome: Progressing Goal: Ability to develop a pain control plan will improve Outcome: Progressing Problem: Skin Integrity: Goal: Risk for impaired skin integrity will decrease Outcome: Progressing Problem: Tissue Perfusion: Goal: Risk factors for ineffective tissue perfusion will decrease Outcome: Progressing Goals: Clinical Goals for the Shift: VSS, strict I&Os, monitor BG Summary: Pt forgetful. Daily wt, Pt up to bathroom, voiding well * Plan of Care - Carine Handley RN - 09/12/2021 6:05 PM CDT Problem: Health Behavior: Goal: Understanding [...] home environment Outcome: Progressing Problem: Activity: Goal: Risk for activity intolerance will decrease Outcome: Progressing Goals: Clinical Goals for the Shift: VSS, strict I&Os, monitor BG * Assessment & Plan Note - Maddi Aaron MD - 09/12/2021 3:41 PM CDT Associated Problem(s): Diabetic neuropathy (HCC) (Resolved 05/16/2024) Ongoing symptoms. Previously on lyrica and Likely exacerbated by volume status. Monitor for response with diuresis, improved with less swelling. * Assessment & Plan Note - Maddi Aaron MD - 09/12/2021 3:40 PM CDT Associated Problem(s): Type 2 diabetes mellitus with diabetic neuropathy, with long-term current use of insulin (HCC) Home regimen lantus 18, lispro 5 TID AC + SSI, had recently had trulicity held due to renal function. Follows with endocrinology outpatient. A1c 8.4. Requiring multiple units of SSI daily. -Continue home statin -Increased glargine to 24=>25 units qPM, lispro to 8units TID, continue SSI and ADA diet. Complicated by diabetic neuropathy and nephropathy. * Assessment & Plan Note - Maddi Aaron MD - 09/12/2021 3:40 PM CDT Associated Problem(s): Schizoaffective disorder, bipolar type (CMS/HCC) (HCC) (Deleted) Hx of schizoaffective disorder, follows with psych outpatient. Earlier in year had been on daily haldol, weaned off due to increased fatigue. - currently no active psychotic manic symptoms, mood is stable and pleasant, cooperative with exam,testing and management. - continue home risperdal 2mg BID, remains alert. * Assessment & Plan Note - Maddi Aaron MD - 09/12/2021 3:39 PM CDT Associated Problem(s): Dementia (HCC) (Deleted) Reported baseline dementia, `AOX2-3. Corroborated by daughter who she lives with. Frequent hospitalizations this year. Suspect med compliance may be an issue. Currently at baseline neurological status -delirium precautions - PT OT Eval underway, PT rec 24 supervision with family, OT rec SNF. Daughter Honye Gayle [phone]. CM following for dispo planning. * Assessment & Plan Note - Maddi Aaron MD - 09/12/2021 3:37 PM CDT Associated Problem(s): Anemia (Deleted) Progressive anemia with Hb 7.1 (dilutional?) from 9.7 over past month ago. 1+ blood in urine, neg cx. Pt denies gross hematuria, epistaxis, melena, hematochezia, hematemesis. Low FeSat, ferritin decreased to 179. Recent normal B12/Folate. Concerning for occult bleeding, but Hb stable. More likely related to CRF. -Started oral iron supplementation -suspect anemia in s/o progressive CRF. Defer to renal timing of epo agents. -GI made aware 09/09, will order OP EGD/colonoscopy at time of discharge and GI team will facilitateexpedited scheduling -Hb trending up with diuresis, around 10 -Consented for blood transfusion, goal Hb > 7, give lasix 20 IV if giving blood * Assessment & Plan Note - Maddi Aaron MD - 09/12/2021 3:37 PM CDT Associated Problem(s): Acute renal failure superimposed on stage 4 chronic kidney disease (CMS/HCC)(HCC) (Deleted) known CKD, likely 2/2 dm. Baseline Cr ~1.6, follows with nephrology outpatient. Cr 2.1 on admit w/ FEUrea 27% consistent with pre-renal injury such as cardiorenal syndrome, however normal LV/RV sys/diastolic function. Urinalysis with 1+ blood in setting of possible UTI. Cr improved initially after first dose of diuretics, worsened slightly with holding further diuresis & patient remained volume overloaded. -Ucx insignif -resumed IV diuresis 09/10 -Daily elecgtrolytes and renal function, unable to monitor strict I/O in s/o urinary incontinence, following serial weights. Avoid geller, if possible. - hold nephrotoxic agents/renally dose medications * Assessment & Plan Note - Maddi Aaron MD - 09/12/2021 3:36 PM CDT Associated Problem(s): Volume overload Due to progressive CRF4. Presents with increasing [...] - renal consulted regarding volume management, possible financial compliance manager dialysis planning, expedite OP f/u. * Subjective & Objective - Maddi Aaron MD - 09/12/2021 9:06 AM CDT Daily Progress Note Division of Hospital Medicine Name: Barbara Chakraborty Today: September 12, 2021 : 1950 Age: 70 y.o. female Admit: 09/06/2021 Bed: [id number] Subjective Chief complaint: Volume overload/anasarca. Acute on CRF4. Proteinuria. 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 Cr 2.1 from 1.6 (b/l) on admit, CXR w/ trace pulm edema, BNP 522. S/p lasix IV c/b slight bump in peak Cr 2.23, improved to 1.94 off diuretics, no assoc hyperkalemia. Diffuse anasarca on exam & IV diuresis resumed 09/10, I&Os with urinary incontinence, but eight down 4kg/48hrs since resuming diuresis. TTE normal, US neg for hydro/cirrhosis but +R pleural effusion. On RA. Appears less swollen. Oxygenation stable on RA. No SOB, CP. Able to move fingers and wrists better. Renal consulted for additional management. Objective Medications: Scheduled: amLODIPine, 10 mg, oral, Daily atorvastatin, 40 mg, oral, Daily famotidine, 20 mg, oral, Daily ferrous sulfate, 65 mg of elemental iron, oral, Daily with breakfast furosemide, 40 mg, intravenous, BID DIURETIC heparin, 5,000 Units, subcutaneous, Q8H SOL insulin glargine, 25 Units, subcutaneous, Nightly insulin lispro, 0-10 Units, subcutaneous, TID with meals insulin lispro, 0-5 Units, subcutaneous, Nightly insulin lispro, 8 Units, subcutaneous, TID with meals polyethylene glycol, 17 g, oral, Daily pregabalin, 150 mg, oral, Daily risperiDONE, 2 mg, oral, Nightly Infusions: PRN: acetaminophen capsaicin dextrose OR dextrose glucagon Vitals: 24hr Min/Max: Temp Min: 36.7 ??C (98 ??F) Max: 37.1 ??C (98.7 ??F) Pulse Min: 74 Max: 87 BP Min: 100/50 Max: 140/54 Resp Min: 16 Max: 16 SpO2 Min: 93 % Max: 97 % Most Recent: Vitals: 09/12/21 0505 BP: 100/50 Pulse: 77 Resp: 16 Temp: 37.1 ??C (98.7 ??F) SpO2: Intake/Output Summary (Last 24 hours) at 09/12/2021 0906 Last data filed at 09/11/2021 1515 Gross per 24 hour Intake 300 ml Output 400 ml Net -100 ml Physical Exam Vitals and nursing note reviewed. Constitutional: General: She is not in acute distress. Appearance: She is obese. She is not ill-appearing or diaphoretic. Comments: Diffuse anasarca, sitting in chair, alert, conversational. HENT: Head: Normocephalic and atraumatic. Right Ear: External ear normal. Left Ear: External ear normal. Nose: Nose normal. No congestion or rhinorrhea. Mouth/Throat: Mouth: Mucous membranes are moist. Pharynx: Oropharynx is clear. No oropharyngeal exudate or posterior oropharyngeal erythema. Eyes: General: No scleral icterus. Extraocular Movements: Extraocular movements intact. Conjunctiva/sclera: Conjunctivae normal. Pupils: Pupils are equal, round, and reactive to light. Neck: Comments: Chest and neck with edema. Cardiovascular: Rate and Rhythm: Normal rate and regular rhythm. Pulses: Normal pulses. Heart sounds: No murmur heard. No friction rub. No gallop. Pulmonary: Effort: Pulmonary effort is normal. No respiratory distress. Breath sounds: No stridor. No wheezing, rhonchi or rales. Comments: Decreased BS at bases bilaterally, shallow inpirations. No wheezing or rales appreciated. Chest: Chest wall: No tenderness. Abdominal: General: Bowel sounds are normal. There is no distension. Palpations: There is no mass. Tenderness: There is no abdominal tenderness. Hernia: No hernia is present. Comments: Obese, protuberant. No fluid wave appreciated. Musculoskeletal: General: Swelling present. Cervical back: Normal range of motion and neck supple. Right lower leg: Edema present. Left lower leg: Edema present. Comments: Diffuse pitting edema on U/L extremities. 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 Skin: General: Skin is warm and dry. Capillary Refill: Capillary refill takes less than 2 seconds. Coloration: Skin is not jaundiced. Findings: No rash. Neurological: General: No focal deficit present. Mental Status: She is alert. Cranial Nerves: No cranial nerve deficit. Sensory: Sensory deficit present. Comments: Alert, oriented, stocking glove distribution of neuropathy on hands, feet bilaterally. Psychiatric: Mood and Affect: Mood normal. Behavior: Behavior normal. Thought Content: Thought content normal. Lab/Diagnostic Review: Recent Results (from the past 36 hour(s)) CBC with auto differential Collection Time: 09/10/21 9:10 PM Result Value Ref Range WBC 12.2 (H) 3.8 - 9.9 K/cumm Hgb 7.6 (L) 11.9 - 15.5 g/dL Hct 24.5 (L) 35.6 - 45.5 % Plt 299 150 - 400 K/cumm MPV 11.5 9.1 - 12.3 fL RBC 2.62 (L) 3.90 - 5.20 M/cumm MCV 93.5 81.3 - 96.4 fL MCH 29.0 27.1 - 33.3 pg MCHC 31.0 (L) 32.3 - 35.7 g/dL RDW CV 15.9 (H) 11.1 - 14.9 % RDW SD 53.3 (H) 35.7 - 48.1 fL NRBC abs 0.02 (H) 0.00 - 0.01 K/cumm Basic metabolic panel Collection Time: 09/10/21 9:10 PM Result Value Ref Range Sodium 142 135 - 145 mmol/L Potassium, pl 4.2 3.3 - 4.9 mmol/L Chloride 105 97 - 110 mmol/L CO2 26 22 - 32 mmol/L Anion gap 11 2 - 15 mmol/L BUN 42 (H) 8 - 25 mg/dL Creatinine 1.88 (H) 0.60 - 1.10 mg/dL Glucose 223 (H) 70 - 199 mg/dL Calcium 9.4 8.5 - 10.3 mg/dL Magnesium Collection Time: 09/10/21 9:10 PM Result Value Ref Range Magnesium 1.9 1.4 - 2.5 mg/dL Lipid panel Collection Time: 09/10/21 9:10 PM Result Value Ref Range Cholesterol 84 30 - 199 mg/dL Triglycerides 153 (H) <=149 mg/dL HDL 33 (L) >=40 mg/dL LDL, calculated 20 <=129 mg/dL Non-HDL Cholesterol 51 mg/dL Chol/HDL ratio 3 Pro B-type natriuretic peptide Collection Time: 09/10/21 9:10 PM Result Value Ref Range NT-proBNP 146 <=300 pg/mL Differential, auto Collection Time: 09/10/21 9:10 PM Result Value Ref Range Neutrophil abs 8.2 (H) 1.7 - 6.5 K/cumm Imm gran abs 0.1 0.0 - 0.1 K/cumm Lymphocyte abs 2.8 0.8 - 3.3 K/cumm Monocyte abs 0.8 0.2 - 0.8 K/cumm Eosinophil abs 0.3 0.0 - 0.5 K/cumm Basophil abs 0.0 0.0 - 0.1 K/cumm Neutrophil pct 67.4 % Imm gran pct 0.6 % Lymphocyte pct 23.0 % Monocyte pct 6.6 % Eosinophil pct 2.1 % Basophil pct 0.3 % eGFR Collection Time: 09/10/21 9:10 PM Result Value Ref Range eGFR 28 (L) 90 - 130 mL/min/1.73 m2 POCT glucose Collection Time: 09/10/21 9:44 PM Result Value Ref Range Glucose, POC 203 (H) 70 - 199 mg/dL POCT glucose Collection Time: 09/11/21 10:21 AM Result Value Ref Range Glucose, POC 204 (H) 70 - 199 mg/dL POCT glucose Collection Time: 09/11/21 12:58 PM Result Value Ref Range Glucose, POC 215 (H) 70 - 199 mg/dL POCT glucose Collection Time: 09/11/21 5:02 PM Result Value Ref Range Glucose, POC 218 (H) 70 - 199 mg/dL POCT glucose Collection Time: 09/11/21 8:06 PM Result Value Ref Range Glucose, POC 239 (H) 70 - 199 mg/dL CBC with auto differential Collection Time: 09/11/21 10:35 PM Result Value Ref Range WBC 10.0 (H) 3.8 - 9.9 K/cumm Hgb 7.5 (L) 11.9 - 15.5 g/dL Hct 23.5 (L) 35.6 - 45.5 % Plt 272 150 - 400 K/cumm MPV 11.3 9.1 - 12.3 fL RBC 2.53 (L) 3.90 - 5.20 M/cumm MCV 92.9 81.3 - 96.4 fL MCH 29.6 27.1 - 33.3 pg MCHC 31.9 (L) 32.3 - 35.7 g/dL RDW CV 16.2 (H) 11.1 - 14.9 % RDW SD 54.1 (H) 35.7 - 48.1 fL NRBC abs 0.03 (H) 0.00 - 0.01 K/cumm Basic metabolic panel Collection Time: 09/11/21 10:35 PM Result Value Ref Range Sodium 143 135 - 145 mmol/L Potassium, pl 4.2 3.3 - 4.9 mmol/L Chloride 104 97 - 110 mmol/L CO2 27 22 - 32 mmol/L Anion gap 12 2 - 15 mmol/L BUN 48 (H) 8 - 25 mg/dL Creatinine 1.98 (H) 0.60 - 1.10 mg/dL Glucose 173 70 - 199 mg/dL Calcium 9.2 8.5 - 10.3 mg/dL Magnesium Collection Time: 09/11/21 10:35 PM Result Value Ref Range Magnesium 1.9 1.4 - 2.5 mg/dL Differential, auto Collection Time: 09/11/21 10:35 PM Result Value Ref Range Neutrophil abs 6.1 1.7 - 6.5 K/cumm Imm gran abs 0.1 0.0 - 0.1 K/cumm Lymphocyte abs 2.8 0.8 - 3.3 K/cumm Monocyte abs 0.7 0.2 - 0.8 K/cumm Eosinophil abs 0.2 0.0 - 0.5 K/cumm Basophil abs 0.0 0.0 - 0.1 K/cumm Neutrophil pct 61.1 % Imm gran pct 0.6 % Lymphocyte pct 28.3 % Monocyte pct 7.3 % Eosinophil pct 2.3 % Basophil pct 0.4 % eGFR Collection Time: 09/11/21 10:35 PM Result Value Ref Range eGFR 27 (L) 90 - 130 mL/min/1.73 m2 POCT glucose Collection Time: 09/12/21 8:02 AM Result Value Ref Range Glucose, POC 148 70 - 199 mg/dL I have reviewed the laboratory results. Imaging Results: US Abdomen Complete Narrative: EXAMINATION: COMPLETE ABDOMINAL SONOGRAM HISTORY: 70-year-old woman with diabetes mellitus and acute on chronic kidney disease. She is hospitalized with anasarca. Evaluate for cirrhosis. COMPARISON: None FINDINGS: Liver: The liver is normal in size. The echotexture is normal. The echogenicity is normal. There is no surface nodularity. No focal solid lesions are visualized. Gallbladder: The gallbladder is normal in size. There are no stones or sludge within the gallbladder. There is no gallbladder wall thickening. Bile Duct: There is no intrahepatic bile duct dilatation. The diameter of the common duct is 5 mm in the mid segment and 2 mm in the distal segment. Kidneys: There is no hydronephrosis in the visualized portions of the kidneys. Pancreas: Pancreas is not well visualized due to overlying bowel gas. Spleen: The spleen is normal in size. Aorta: The proximal aorta is normal. Inferior vena cava: The proximal IVC is normal. Other Findings: There is a right pleural effusion. Impression: 1. No sonographic findings of cirrhosis. 2. Right pleural effusion. Dr. Bronson (associate professor of radiology) personally participated in sonographic imaging of this patient. ANAY Bernardo also participated in sonographic imaging of this patient. Dictated by: Cristo Bronson MD The radiology attending physician has personally reviewed this study, and had reviewed and/or edited this written report and agrees with it. Electronically signed by: Mayuri Gibson M.D. I have independently reviewed and interpreted Cr 1.91, 1.99, 2.23, 1.99, 1.94 Ucx 09/07 insignificant TTE 09/10 Normal LV and RV size and systolic function. LVEF 69%. Normal global LV Myocardial longitudinal function and LV strain pattern. No significant valvular abnormalities noted. Estimated PA systolic pressure 40+RA(5-10) mmHg. Diastolic function is normal for age. LA is normal. Mild concentric LV hypertrophy. Normal Inferior vena cava. Normal aorta. No comparison study. Abd US 09/11 no cirrhosis, no hydronephrosis or hydroureter, +R pleural effusion TC 84, HDL 33 (low), LDL 20, TG 153 (elevated) PRIOR Covid-19 RNA + on 08/13/2021 TTE 01/09/20 Normal left ventricular systolic function with no focal wall motion abnormalities. Normal left ventricular size. Normal left ventricular diastolic function. Ejection fraction is visually estimated at 67 %.The left atrium is normal in size. Normal left atrial pressure based on pulmonary vein inflow. The right atrium is normal in size. Right Ventricular Systolic Pressure could not be estimated due to inadequate visualization of TR jet. * Plan of Care - Alessia Wesley RN - 09/12/2021 2:20 AM CDT Problem: Lack of Knowledge: Goal: Ability to state ways to decrease the risk of falls will improve 09/12/2021 022 by Alessia Wesley RN Outcome: Progressing 09/12/2021219 by Alessia Wesley RN Outcome: Progressing Problem: Safety: Goal: Will remain free from falls 09/12/2021 022 by Alessia Wesley RN Outcome: Progressing 09/12/2021219 by Alessia Wesley RN Outcome: Progressing Goal: Will remain free from injury from falls 09/12/2021219 by Alessia Wesley RN Outcome: Progressing 09/12/2021219 by Alessia Wesley RN Outcome: Progressing Goal: Will remain free from falls and injury in home environment 09/12/2021219 by Alessia Wesley RN Outcome: Progressing 09/12/2021219 by Alessia Wesley RN Outcome: Progressing Goals: Clinical Goals for the Shift: VSS, Strict I&Os, Comfort/safety Summary: progressing * Plan of Care - Carine Handley RN - 09/11/2021 3:45 PM CDT Problem: Lack of Knowledge: Goal: Ability to state ways to decrease the risk of falls will improve Outcome: Progressing Problem: Safety: Goal: Will remain free from falls Outcome: Progressing Goal: Will remain free from injury from falls Outcome: Progressing Goal: Will remain free from falls and injury in home environment Outcome: Progressing Problem: Activity: Goal: Risk for activity intolerance will decrease Outcome: Progressing Problem: Lack of Knowledge: Goal: Knowledge of diagnostic tests will improve Outcome: Progressing Goal: Knowledge of disease or condition will improve Outcome: Progressing Goal: Knowledge of safety precautions will improve Outcome: Progressing Goal: Knowledge of the prescribed therapeutic regimen will improve Outcome: Progressing Problem: Health Behavior: Goal: Ability to state signs and symptoms to report to health care provider will improve Outcome: Progressing Goals: Clinical Goals for the Shift: VSS, strict I&Os, comfort/safety * Significant Event - Maddi Aaron MD - 09/11/2021 2:55 PM CDT Attempted to reach family member Honey Gayle [phone], voicemail left. Maddi Aaron MD * Assessment & Plan Note - Maddi Aaron MD - 09/11/2021 2:54 PM CDT Associated Problem(s): Diabetic neuropathy (HCC) (Resolved 05/16/2024) Ongoing symptoms. Previously on lyrica and Likely exacerbated by volume status. Monitor for response with diuresis. * Assessment & Plan Note - Maddi Aaron MD - 09/11/2021 2:53 PM CDT Associated Problem(s): Type 2 diabetes mellitus with diabetic neuropathy, with long-term current use of insulin (HCC) Home regimen lantus 18, lispro 5 TID AC + SSI, had recently had trulicity held due to renal function. Follows with endocrinology outpatient. A1c 8.4. Requiring multiple units of SSI daily. -Continue home statin -Increased glargine to 24=>25 units qPM, lispro to 8units TID, continue SSI and ADA diet. Complicated by diabetic neuropathy and nephropathy. * Assessment & Plan Note - Maddi Aaron MD - 09/11/2021 2:52 PM CDT Associated Problem(s): Schizoaffective disorder, bipolar type (CMS/HCC) (HCC) (Deleted) Hx of schizoaffective disorder, follows with psych outpatient. Earlier in year had been on daily haldol, weaned off due to increased fatigue. - currently no active psychotic manic symptoms, mood is stable and pleasant, cooperative with exam,testing and management. - continue home risperdal 2mg BID * Assessment & Plan Note - Maddi Aaron MD - 09/11/2021 2:51 PM CDT Associated Problem(s): Dementia (HCC) (Deleted) Reported baseline dementia, `AOX2-3. Corroborated by daughter who she lives with. Frequent hospitalizations this year. Suspect med compliance may be an issue. - currently at baseline neurological status -delirium precautions - PT OT Eval underway, PT rec 24 supervision with family, OT rec SNF. CM following for dispo planning. * Assessment & Plan Note - Maddi Aaron MD - 09/11/2021 2:50 PM CDT Associated Problem(s): Anemia (Deleted) Progressive anemia with Hb 7.1 from 9.7 over past month ago. 1+ blood in urine, neg cx. Pt denies gross hematuria, epistaxis, melena, hematochezia, hematemesis. Low FeSat, ferritin decreased to 179. Recent normal B12/Folate. Concerning for occult bleeding, but Hb stable. More likely related to CRF. -Started oral iron supplementation -suspect anemia in s/o progressive CRF. Defer to renal timing of epo agents. -GI made aware 09/09, will order OP EGD/colonoscopy at time of discharge and GI team will facilitateexpedited scheduling -Consented for blood transfusion, goal Hb > 7, give lasix 20 IV if giving blood * Assessment & Plan Note - Maddi Aaron MD - 09/11/2021 2:48 PM CDT Associated Problem(s): Acute renal failure superimposed on stage 4 chronic kidney disease (CMS/HCC)(HCC) (Deleted) known CKD, likely 2/2 dm. Baseline Cr ~1.6, follows with nephrology outpatient. Cr 2.1 on admit w/ FEUrea 27% consistent with pre-renal injury such as cardiorenal syndrome, however normal LV/RV sys/diastolic function. Urinalysis with 1+ blood in setting of possible UTI. Cr improved initially after first dose of diuretics, worsened slightly with holding further diuresis & patient remained volume overloaded. -Ucx insignif -resumed IV diuresis 09/10 -Daily elecgtrolytes and renal function, unable to monitor strict I/O in s/o urinary incontinence, following serial weights. Avoid geller, if possible. - hold nephrotoxic agents/renally dose medications * Assessment & Plan Note - Maddi Aaron MD - 09/11/2021 2:47 PM CDT Associated Problem(s): Volume overload Due to progressive CRF4. Presents with increasing [...] net neg 1/2-1L/day. -consider renal consult regarding financial compliance manager dialysis planning, expedite OP f/u. * Subjective & Objective - Maddi Aaron MD - 09/11/2021 8:52 AM CDT Daily Progress Note Division of Hospital Medicine Name: Barbara Chakraborty Today: September 11, 2021 : 1950 Age: 70 y.o. female Admit: 09/06/2021 Bed: [id number] Subjective Chief complaint: Volume overload. Acute on CRF4. Proteinuria. 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 Cr 2.1 from 1.6 (b/l) on admit, CXR w/ trace pulm edema, BNP 522. S/p lasix IV c/b slight bump in peak Cr 2.23, improved to 1.94 off diuretics, no assoc hyperkalemia. Diffusely edematous on exam & IV diuresis resumed 09/10, I&Os with urinary incontinence, but Cr improved to 1.8. Abd US neg for cirrhosis, hydronephrosis/hydroureter, +R pleural effusion. Remains on RA. Objective Medications: Scheduled: amLODIPine, 10 mg, oral, Daily atorvastatin, 40 mg, oral, Daily famotidine, 20 mg, oral, Daily ferrous sulfate, 65 mg of elemental iron, oral, Daily with breakfast furosemide, 40 mg, intravenous, BID DIURETIC heparin, 5,000 Units, subcutaneous, Q8H SOL insulin glargine, 24 Units, subcutaneous, Nightly insulin lispro, 0-10 Units, subcutaneous, TID with meals insulin lispro, 0-5 Units, subcutaneous, Nightly insulin lispro, 8 Units, subcutaneous, TID with meals polyethylene glycol, 17 g, oral, Daily pregabalin, 150 mg, oral, Daily risperiDONE, 2 mg, oral, Nightly Infusions: PRN: acetaminophen capsaicin dextrose OR dextrose glucagon Vitals: 24hr Min/Max: Temp Min: 36.5 ??C (97.7 ??F) Max: 36.8 ??C (98.2 ??F) Pulse Min: 81 Max: 95 BP Min: 122/54 Max: 167/72 Resp Min: 16 Max: 16 SpO2 Min: 95 % Max: 97 % Most Recent: Vitals: 09/11/21 0625 BP: 123/54 Pulse: 85 Resp: Temp: SpO2: Intake/Output Summary (Last 24 hours) at 09/11/2021 0852 Last data filed at 09/11/2021 0500 Gross per 24 hour Intake 1550 ml Output 600 ml Net 950 ml Physical Exam Vitals and nursing note reviewed. Constitutional: General: She is not in acute distress. Appearance: She is obese. She is not ill-appearing or diaphoretic. Comments: Diffuse anasarca, sitting in chair, alert, conversational. HENT: Head: Normocephalic and atraumatic. Right Ear: External ear normal. Left Ear: External ear normal. Nose: Nose normal. No congestion or rhinorrhea. Mouth/Throat: Mouth: Mucous membranes are moist. Pharynx: Oropharynx is clear. No oropharyngeal exudate or posterior oropharyngeal erythema. Eyes: General: No scleral icterus. Extraocular Movements: Extraocular movements intact. Conjunctiva/sclera: Conjunctivae normal. Pupils: Pupils are equal, round, and reactive to light. Neck: Comments: Chest and neck with edema. Cardiovascular: Rate and Rhythm: Normal rate and regular rhythm. Pulses: Normal pulses. Heart sounds: No murmur heard. No friction rub. No gallop. Pulmonary: Effort: Pulmonary effort is normal. No respiratory distress. Breath sounds: No stridor. No wheezing, rhonchi or rales. Comments: Decreased BS at bases bilaterally, shallow inpirations. No wheezing or rales appreciated. Chest: Chest wall: No tenderness. Abdominal: General: Bowel sounds are normal. There is no distension. Palpations: There is no mass. Tenderness: There is no abdominal tenderness. Hernia: No hernia is present. Comments: Obese, protuberant. No fluid wave appreciated. Musculoskeletal: General: Swelling present. Cervical back: Normal range of motion and neck supple. Right lower leg: Edema present. Left lower leg: Edema present. Comments: Diffuse pitting edema on U/L extremities. 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 Skin: General: Skin is warm and dry. Capillary Refill: Capillary refill takes less than 2 seconds. Coloration: Skin is not jaundiced. Findings: No rash. Neurological: General: No focal deficit present. Mental Status: She is alert. Cranial Nerves: No cranial nerve deficit. Sensory: Sensory deficit present. Comments: Alert, oriented, stocking glove distribution of neuropathy on hands, feet bilaterally. Psychiatric: Mood and Affect: Mood normal. Behavior: Behavior normal. Thought Content: Thought content normal. Lab/Diagnostic Review: Recent Results (from the past 36 hour(s)) POCT glucose Collection Time: 09/09/21 9:24 PM Result Value Ref Range Glucose, POC 181 70 - 199 mg/dL CBC with auto differential Collection Time: 09/09/21 9:49 PM Result Value Ref Range WBC 8.9 3.8 - 9.9 K/cumm Hgb 7.1 (L) 11.9 - 15.5 g/dL Hct 22.3 (L) 35.6 - 45.5 % Plt 259 150 - 400 K/cumm MPV 11.4 9.1 - 12.3 fL RBC 2.39 (L) 3.90 - 5.20 M/cumm MCV 93.3 81.3 - 96.4 fL MCH 29.7 27.1 - 33.3 pg MCHC 31.8 (L) 32.3 - 35.7 g/dL RDW CV 16.1 (H) 11.1 - 14.9 % RDW SD 54.0 (H) 35.7 - 48.1 fL NRBC abs 0.00 0.00 - 0.01 K/cumm Basic metabolic panel Collection Time: 09/09/21 9:49 PM Result Value Ref Range Sodium 145 135 - 145 mmol/L Potassium, pl 4.2 3.3 - 4.9 mmol/L Chloride 107 97 - 110 mmol/L CO2 27 22 - 32 mmol/L Anion gap 11 2 - 15 mmol/L BUN 43 (H) 8 - 25 mg/dL Creatinine 1.94 (H) 0.60 - 1.10 mg/dL Glucose 159 70 - 199 mg/dL Calcium 9.4 8.5 - 10.3 mg/dL Magnesium Collection Time: 09/09/21 9:49 PM Result Value Ref Range Magnesium 1.8 1.4 - 2.5 mg/dL Differential, auto Collection Time: 09/09/21 9:49 PM Result Value Ref Range Neutrophil abs 5.0 1.7 - 6.5 K/cumm Imm gran abs 0.1 0.0 - 0.1 K/cumm Lymphocyte abs 2.8 0.8 - 3.3 K/cumm Monocyte abs 0.8 0.2 - 0.8 K/cumm Eosinophil abs 0.2 0.0 - 0.5 K/cumm Basophil abs 0.0 0.0 - 0.1 K/cumm Neutrophil pct 56.2 % Imm gran pct 0.7 % Lymphocyte pct 31.4 % Monocyte pct 8.7 % Eosinophil pct 2.6 % Basophil pct 0.4 % eGFR Collection Time: 09/09/21 9:49 PM Result Value Ref Range eGFR 27 (L) 90 - 130 mL/min/1.73 m2 POCT glucose Collection Time: 09/10/21 11:00 AM Result Value Ref Range Glucose, POC 135 70 - 199 mg/dL CBC without differential Collection Time: 09/10/21 11:16 AM Result Value Ref Range WBC 10.3 (H) 3.8 - 9.9 K/cumm Hgb 8.8 (L) 11.9 - 15.5 g/dL Hct 28.3 (L) 35.6 - 45.5 % Plt 283 150 - 400 K/cumm MPV 12.2 9.1 - 12.3 fL RBC 3.02 (L) 3.90 - 5.20 M/cumm MCV 93.7 81.3 - 96.4 fL MCH 29.1 27.1 - 33.3 pg MCHC 31.1 (L) 32.3 - 35.7 g/dL RDW CV 16.1 (H) 11.1 - 14.9 % RDW SD 53.7 (H) 35.7 - 48.1 fL NRBC abs 0.02 (H) 0.00 - 0.01 K/cumm Type and screen Collection Time: 09/10/21 11:16 AM Result Value Ref Range Regi, indirect Negative ABO Rh B Positive POCT glucose Collection Time: 09/10/21 4:08 PM Result Value Ref Range Glucose, POC 191 70 - 199 mg/dL CBC with auto differential Collection Time: 09/10/21 9:10 PM Result Value Ref Range WBC 12.2 (H) 3.8 - 9.9 K/cumm Hgb 7.6 (L) 11.9 - 15.5 g/dL Hct 24.5 (L) 35.6 - 45.5 % Plt 299 150 - 400 K/cumm MPV 11.5 9.1 - 12.3 fL RBC 2.62 (L) 3.90 - 5.20 M/cumm MCV 93.5 81.3 - 96.4 fL MCH 29.0 27.1 - 33.3 pg MCHC 31.0 (L) 32.3 - 35.7 g/dL RDW CV 15.9 (H) 11.1 - 14.9 % RDW SD 53.3 (H) 35.7 - 48.1 fL NRBC abs 0.02 (H) 0.00 - 0.01 K/cumm Basic metabolic panel Collection Time: 09/10/21 9:10 PM Result Value Ref Range Sodium 142 135 - 145 mmol/L Potassium, pl 4.2 3.3 - 4.9 mmol/L Chloride 105 97 - 110 mmol/L CO2 26 22 - 32 mmol/L Anion gap 11 2 - 15 mmol/L BUN 42 (H) 8 - 25 mg/dL Creatinine 1.88 (H) 0.60 - 1.10 mg/dL Glucose 223 (H) 70 - 199 mg/dL Calcium 9.4 8.5 - 10.3 mg/dL Magnesium Collection Time: 09/10/21 9:10 PM Result Value Ref Range Magnesium 1.9 1.4 - 2.5 mg/dL Lipid panel Collection Time: 09/10/21 9:10 PM Result Value Ref Range Cholesterol 84 30 - 199 mg/dL Triglycerides 153 (H) <=149 mg/dL HDL 33 (L) >=40 mg/dL LDL, calculated 20 <=129 mg/dL Non-HDL Cholesterol 51 mg/dL Chol/HDL ratio 3 Pro B-type natriuretic peptide Collection Time: 09/10/21 9:10 PM Result Value Ref Range NT-proBNP 146 <=300 pg/mL Differential, auto Collection Time: 09/10/21 9:10 PM Result Value Ref Range Neutrophil abs 8.2 (H) 1.7 - 6.5 K/cumm Imm gran abs 0.1 0.0 - 0.1 K/cumm Lymphocyte abs 2.8 0.8 - 3.3 K/cumm Monocyte abs 0.8 0.2 - 0.8 K/cumm Eosinophil abs 0.3 0.0 - 0.5 K/cumm Basophil abs 0.0 0.0 - 0.1 K/cumm Neutrophil pct 67.4 % Imm gran pct 0.6 % Lymphocyte pct 23.0 % Monocyte pct 6.6 % Eosinophil pct 2.1 % Basophil pct 0.3 % eGFR Collection Time: 09/10/21 9:10 PM Result Value Ref Range eGFR 28 (L) 90 - 130 mL/min/1.73 m2 POCT glucose Collection Time: 09/10/21 9:44 PM Result Value Ref Range Glucose, POC 203 (H) 70 - 199 mg/dL I have reviewed the laboratory results. Imaging Results: Transthoracic Echo Complete W Doppler/CF Patient name: Barbara Chakraborty Date of test: 09/10/2021 Type of test: [facility]/Doppler [facility] #: [id number] Date of : 1950 (F) Italian Lecturer: Nalini Lopez RDCS Referring Physician: SAGAR MORENO MD Contrast Agent: 1.5 ml Optison Administered, (1.5 ml wasted). Contrast Administered by: Supervised/Interpreted by: Jevon Torrez MD Diagnosis: Location: [facility] Reason for test: HF, overload MV Structure: Normal, MV Motion: Normal, Mitral Annulus: Normal AV Structure: tricuspid and is Normal, AV Motion: Normal Aotic root: Normal, TM: Normal, PV: Normal Valvular Vegetations: none seen, Mass/Thrombi: none seen RA: Normal Measurements: M-Mode Normal Aotic Root: <3.8 LA: <3.8 RV: <2.8 LV(ED): <5.7 LV(ES): Variable 2D Linear Normal Aotic Root: 2.8 cm <3.6 Ao Indexed: 1.6 cm/M2 <2.0 LA: <3.8 RV: 3.7 cm <4.2 LV(ED): 3.8 cm <5.3 LV(ES): 2.2 cm <3.5 2D Vol. Normal Indexed Indexed Normal RA: 38.0 ml 21.8 ml/M2 9-33 LA: 46.0 ml 26.3 ml/M2 16-34 RV: <11.6 LV(ED): 83.0 ml 46-106 47.5 ml/M2 <62 LV(ES): 26.0 ml 14-42 14.9 ml/M2 <25 3D Vol. Indexed Normal LV(ED): <62 LV(ES): <24 LV EF: 69 % (Normal: >=54%) LV Septum: 1.3 cm (Normal: <0.9 cm) Wall Motion Scoring (1=Normal 2=Hypo 3=Akinetic 4=Dyskin./Aneurysm 0=Not visualized) Parasternal Long [place]:MAS=1 BAS=1 MIL=1 YOGESH=1 Parasternal Short [place]:MAS=1 MIS=1 SD=1 MIL=1 MAL=1 MA=1 Apical 4 Chambers:=1 MIS=1 BIS=1 BAL=1 MAL=1 AL=1 AC=1 Apical 2 Chambers:AI=1 SD=1 BI=1 BA=1 MA=1 AA=1 AC=1 LV Global Longitudinal Strain: -18.2% (Normal <-17%) RV Global Longitudinal Strain: LV Function: Normal LV Ejection Fraction, (EF=54-74%) RV Function: Normal Septal Motion: Normal Pericardial Effusion: none seen Atrial Septum: Normal DOPPLER/COLOR FLOW DOPPLER RESULTS: Diastolic Function: Normal Tricuspid Valve: mild TV regurgitation Pulmonic Valve: normal PV AV Regurgitation: No AR seen AV Stenosis: no AV Area: cm2 AV Pressure Gradient (mmHg): Mean: 0, Peak:0 MV Regurgitation: No MR seen MV Stenosis: no MS MV Area: cm2 MV Pressure Gradient (mmHg): Mean: 0 MV ERO: cm Regurg. Vol.: ml/beat Regurg. Frac.: % PA Pressure: 40 mmHg DOPPLER/COLOR FOLOW DOPPLER COMMENTS: No AR seen, No MR seen, no , no MS, mild TV regurgitation, normal PV. Diastolic function: Normal CONTRAST: 1.5 ml Optison Administered, (1.5 ml wasted). SUMMARY: Normal LV and RV size and systolic function. LVEF 69%. Normal global LV Myocardial longitudinal function and LV strain pattern. No significant valvular abnormalities noted. Estimated PA systolic pressure 40+RA(5-10) mmHg. Diastolic function is normal for age. LA is normal. Mild concentric LV hypertrophy. Normal Inferior vena cava. Normal aorta. No comparison study. Confirmed on 09/10/2021 - 10:36:11 by Jevon Torrez MD By signing this report, the attending utility plant operative certifies that he or she has personally supervised and interpreted the echocardiogram and has reviewed and or edited and agrees with the written comments contained within the report. I have independently reviewed and interpreted Cr 1.91, 1.99, 2.23, 1.99, 1.94 Ucx 09/07 insignificant TTE 09/10 Normal LV and RV size and systolic function. LVEF 69%. Normal global LV Myocardial longitudinal function and LV strain pattern. No significant valvular abnormalities noted. Estimated PA systolic pressure 40+RA(5-10) mmHg. Diastolic function is normal for age. LA is normal. Mild concentric LV hypertrophy. Normal Inferior vena cava. Normal aorta. No comparison study. Abd US 09/11 PRIOR Covid-19 RNA + on 08/13/2021 TTE 01/09/20 Normal left ventricular systolic function with no focal wall motion abnormalities. Normal left ventricular size. Normal left ventricular diastolic function. Ejection fraction is visually estimated at 67 %.The left atrium is normal in size. Normal left atrial pressure based on pulmonary vein inflow. The right atrium is normal in size. Right Ventricular Systolic Pressure could not be estimated due to inadequate visualization of TR jet. * Plan of Care - Indira Iglesias RN - 09/10/2021 10:57 PM CDT Goals: Clinical Goals for the Shift: Maintain safety; strict I&Os; monitor labs; sleep hygiene Problem: Health Behavior: Goal: Understanding of discharge [...] home environment Outcome: Progressing Problem: Activity: Goal: Risk for activity intolerance will decrease Outcome: Progressing Problem: Lack of Knowledge: Goal: Knowledge of diagnostic tests will improve Outcome: Progressing Goal: Knowledge of disease or condition will improve Outcome: Progressing Goal: Knowledge of safety precautions will improve Outcome: Progressing Goal: Knowledge of the prescribed therapeutic regimen will improve Outcome: Progressing Problem: Health Behavior: Goal: Ability to state signs and symptoms to report to health care provider will improve Outcome: Progressing Problem: Physical Regulation: Goal: Ability to maintain clinical measurements within normal limits will improve Outcome: Progressing Problem: Infection Risk: Goal: Will remain free from infection Outcome: Progressing Problem: Safety: Goal: Ability to remain free from injury will improve Outcome: Progressing Goal: Will remain free from falls Outcome: Progressing Problem: Self-Care: Goal: Ability to participate in self-care as condition permits will improve Outcome: Progressing Problem: Sensory: Goal: Pain level will decrease Outcome: Progressing Goal: Ability to develop a pain control plan will improve Outcome: Progressing Problem: Skin Integrity: Goal: Risk for impaired skin integrity will decrease Outcome: Progressing Problem: Tissue Perfusion: Goal: Risk factors for ineffective tissue perfusion will decrease Outcome: Progressing Problem: Activity: Goal: Risk for activity intolerance will decrease Outcome: Progressing Problem: Lack of Knowledge: Goal: Knowledge of diagnostic tests will improve Outcome: Progressing Goal: Knowledge of disease or condition will improve Outcome: Progressing Goal: Knowledge of safety precautions will improve Outcome: Progressing Goal: Knowledge of the prescribed therapeutic regimen will improve Outcome: Progressing Problem: Health Behavior: Goal: Ability to state signs and symptoms to report to health care provider will improve Outcome: Progressing Problem: Physical Regulation: Goal: Ability to maintain clinical measurements within normal limits will improve Outcome: Progressing Problem: Infection Risk: Goal: Will remain free from infection Outcome: Progressing Problem: Safety: Goal: Ability to remain free from injury will improve Outcome: Progressing Goal: Will remain free from falls Outcome: Progressing Problem: Self-Care: Goal: Ability to participate in self-care as condition permits will improve Outcome: Progressing Problem: Sensory: Goal: Pain level will decrease Outcome: Progressing Goal: Ability to develop a pain control plan will improve Outcome: Progressing Problem: Skin Integrity: Goal: Risk for impaired skin integrity will decrease Outcome: Progressing Problem: Tissue Perfusion: Goal: Risk factors for ineffective tissue perfusion will decrease Outcome: Progressing * Plan of Care - Cee Gonzalez RN - 09/10/2021 4:09 PM CDT Contacted pts PCP office Dr. Cherelle Corcoran, office staff state patient will be contacted by PCP office with the fuentes and time of their hospital follow up appointment. Patient will be instructed to contact PCP if they are not contacted by PCP with in 1-2 days of hospital discharge. Case Management will continue to follow patient for anticipated discharge needs. Kisha Gonzalez RNcomplaint evaluation supervisor * Assessment & Plan Note - Maddi Aaron MD - 09/10/2021 3:20 PM CDT Associated Problem(s): Diabetic neuropathy (HCC) (Resolved 05/16/2024) Ongoing symptoms. Previously on lyrica and Likely exacerbated by volume status. * Plan of Care - Renae Hendrix RN - 09/10/2021 1:29 PM CDT Goals: Clinical Goals for the Shift: Maintain safety, I/Os Summary: Problem: Health Behavior: Goal: Understanding of [...] home environment Outcome: Progressing Problem: Activity: Goal: Risk for activity intolerance will decrease Outcome: Progressing Problem: Lack of Knowledge: Goal: Knowledge of diagnostic tests will improve Outcome: Progressing Goal: Knowledge of disease or condition will improve Outcome: Progressing Goal: Knowledge of safety precautions will improve Outcome: Progressing Goal: Knowledge of the prescribed therapeutic regimen will improve Outcome: Progressing Problem: Health Behavior: Goal: Ability to state signs and symptoms to report to health care provider will improve Outcome: Progressing Problem: Physical Regulation: Goal: Ability to maintain clinical measurements within normal limits will improve Outcome: Progressing Problem: Infection Risk: Goal: Will remain free from infection Outcome: Progressing Problem: Safety: Goal: Ability to remain free from injury will improve Outcome: Progressing Goal: Will remain free from falls Outcome: Progressing Problem: Self-Care: Goal: Ability to participate in self-care as condition permits will improve Outcome: Progressing Problem: Sensory: Goal: Pain level will decrease Outcome: Progressing Goal: Ability to develop a pain control plan will improve Outcome: Progressing Problem: Skin Integrity: Goal: Risk for impaired skin integrity will decrease Outcome: Progressing Problem: Tissue Perfusion: Goal: Risk factors for ineffective tissue perfusion will decrease Outcome: Progressing Problem: Activity: Goal: Risk for activity intolerance will decrease Outcome: Progressing Problem: Lack of Knowledge: Goal: Knowledge of diagnostic tests will improve Outcome: Progressing Goal: Knowledge of disease or condition will improve Outcome: Progressing Goal: Knowledge of safety precautions will improve Outcome: Progressing Goal: Knowledge of the prescribed therapeutic regimen will improve Outcome: Progressing Problem: Health Behavior: Goal: Ability to state signs and symptoms to report to health care provider will improve Outcome: Progressing Problem: Physical Regulation: Goal: Ability to maintain clinical measurements within normal limits will improve Outcome: Progressing Problem: Infection Risk: Goal: Will remain free from infection Outcome: Progressing Problem: Safety: Goal: Ability to remain free from injury will improve Outcome: Progressing Goal: Will remain free from falls Outcome: Progressing Problem: Self-Care: Goal: Ability to participate in self-care as condition permits will improve Outcome: Progressing Problem: Sensory: Goal: Pain level will decrease Outcome: Progressing Goal: Ability to develop a pain control plan will improve Outcome: Progressing Problem: Skin Integrity: Goal: Risk for impaired skin integrity will decrease Outcome: Progressing Problem: Tissue Perfusion: Goal: Risk factors for ineffective tissue perfusion will decrease Outcome: Progressing * Plan of Care - Cee Gonzalez RN - 09/10/2021 12:26 PM CDT Manager [employer] spoke with pts dtr Areli, informed that [facility] home Care unable to accept at this time.Areli agreeable with CM sending referrals for home health to agencies that service the are where she lives. Additional home health referrals sent per [facility]. Case Management will continue to follow patient for anticipated discharge needs. Kisha Gonzalez RNcomplaint evaluation supervisor * Subjective & Objective - Maddi Aaron MD - 09/10/2021 7:36 AM CDT Daily Progress Note Division of Hospital Medicine Name: Barbara Chakraborty Today: September 10, 2021 : 1950 Age: 70 y.o. female Admit: 09/06/2021 Bed: [id number] Subjective Chief complaint: Volume overload. Acute on CRF4. Proteinuria. 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 CXR - trace pulm edema. Admission for volume overload iso STEFANO on CKD. S/p lasix IV c/b slight bump in peak Cr 2.23, improved to 1.94 off diuretics. no assoc hyperkalemia. Diffusely edematous on exam. Notes sore neck in back and numbness in fingers and toes. No perioral hyperesthesia. Denies SOB, CP, nausea or vomiting. Objective Medications: Scheduled: amLODIPine, 10 mg, oral, Daily atorvastatin, 40 mg, oral, Daily famotidine, 20 mg, oral, Daily ferrous sulfate, 65 mg of elemental iron, oral, Daily with breakfast [Held by Provider] furosemide, 40 mg, intravenous, BID DIURETIC heparin, 5,000 Units, subcutaneous, Q8H SOL insulin glargine, 24 Units, subcutaneous, Nightly insulin lispro, 0-10 Units, subcutaneous, TID with meals insulin lispro, 0-5 Units, subcutaneous, Nightly insulin lispro, 8 Units, subcutaneous, TID with meals polyethylene glycol, 17 g, oral, Daily pregabalin, 150 mg, oral, Daily risperiDONE, 2 mg, oral, Nightly Infusions: PRN: acetaminophen capsaicin dextrose OR dextrose glucagon Vitals: 24hr Min/Max: Temp Min: 36.5 ??C (97.7 ??F) Max: 36.8 ??C (98.2 ??F) Pulse Min: 75 Max: 86 BP Min: 112/51 Max: 143/59 Resp Min: 14 Max: 18 SpO2 Min: 94 % Max: 100 % Most Recent: Vitals: 09/10/21 0550 BP: 125/56 Pulse: 75 Resp: 14 Temp: 36.5 ??C (97.7 ??F) SpO2: 96% Intake/Output Summary (Last 24 hours) at 09/10/2021 0736 Last data filed at 09/09/2021 2255 Gross per 24 hour Intake 1030 ml Output 1150 ml Net -120 ml Physical Exam Vitals and nursing note reviewed. Constitutional: General: She is not in acute distress. Appearance: She is obese. She is not ill-appearing or diaphoretic. Comments: Diffuse anasarca, sitting in chair, alert, conversational. HENT: Head: Normocephalic and atraumatic. Right Ear: External ear normal. Left Ear: External ear normal. Nose: Nose normal. No congestion or rhinorrhea. Mouth/Throat: Mouth: Mucous membranes are moist. Pharynx: Oropharynx is clear. No oropharyngeal exudate or posterior oropharyngeal erythema. Eyes: General: No scleral icterus. Extraocular Movements: Extraocular movements intact. Conjunctiva/sclera: Conjunctivae normal. Pupils: Pupils are equal, round, and reactive to light. Neck: Comments: Chest and neck with edema. Cardiovascular: Rate and Rhythm: Normal rate and regular rhythm. Pulses: Normal pulses. Heart sounds: No murmur heard. No friction rub. No gallop. Pulmonary: Effort: Pulmonary effort is normal. No respiratory distress. Breath sounds: No stridor. No wheezing, rhonchi or rales. Comments: Decreased BS at bases bilaterally, shallow inpirations. No wheezing or rales appreciated. Chest: Chest wall: No tenderness. Abdominal: General: Bowel sounds are normal. There is no distension. Palpations: There is no mass. Tenderness: There is no abdominal tenderness. Hernia: No hernia is present. Comments: Obese, protuberant. No fluid wave appreciated. Musculoskeletal: General: Swelling present. Cervical back: Normal range of motion and neck supple. Right lower leg: Edema present. Left lower leg: Edema present. Comments: Diffuse pitting edema on U/L extremities. 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 Skin: General: Skin is warm and dry. Capillary Refill: Capillary refill takes less than 2 seconds. Coloration: Skin is not jaundiced. Findings: No rash. Neurological: General: No focal deficit present. Mental Status: She is alert. Cranial Nerves: No cranial nerve deficit. Sensory: Sensory deficit present. Comments: Alert, oriented, stocking glove distribution of neuropathy on hands, feet bilaterally. Psychiatric: Mood and Affect: Mood normal. Behavior: Behavior normal. Thought Content: Thought content normal. Lab/Diagnostic Review: Recent Results (from the past 36 hour(s)) POCT glucose Collection Time: 09/08/21 8:47 PM Result Value Ref Range Glucose, POC 246 (H) 70 - 199 mg/dL Basic metabolic panel, serum Collection Time: 09/08/21 9:50 PM Result Value Ref Range Sodium 143 135 - 145 mmol/L Potassium, sr 4.2 3.6 - 5.2 mmol/L Chloride 103 97 - 110 mmol/L CO2 29 22 - 32 mmol/L Anion gap 11 2 - 15 mmol/L BUN 41 (H) 8 - 25 mg/dL Creatinine 2.23 (H) 0.60 - 1.10 mg/dL Glucose 194 70 - 199 mg/dL Calcium 9.8 8.5 - 10.3 mg/dL Magnesium Collection Time: 09/08/21 9:50 PM Result Value Ref Range Magnesium 1.9 1.4 - 2.5 mg/dL eGFR Collection Time: 09/08/21 9:50 PM Result Value Ref Range eGFR 23 (L) 90 - 130 mL/min/1.73 m2 CBC with auto differential Collection Time: 09/08/21 9:58 PM Result Value Ref Range WBC 9.7 3.8 - 9.9 K/cumm Hgb 8.0 (L) 11.9 - 15.5 g/dL Hct 25.3 (L) 35.6 - 45.5 % Plt 292 150 - 400 K/cumm MPV 11.5 9.1 - 12.3 fL RBC 2.72 (L) 3.90 - 5.20 M/cumm MCV 93.0 81.3 - 96.4 fL MCH 29.4 27.1 - 33.3 pg MCHC 31.6 (L) 32.3 - 35.7 g/dL RDW CV 15.9 (H) 11.1 - 14.9 % RDW SD 52.0 (H) 35.7 - 48.1 fL NRBC abs 0.02 (H) 0.00 - 0.01 K/cumm Differential, auto Collection Time: 09/08/21 9:58 PM Result Value Ref Range Neutrophil abs 5.6 1.7 - 6.5 K/cumm Imm gran abs 0.0 0.0 - 0.1 K/cumm Lymphocyte abs 3.1 0.8 - 3.3 K/cumm Monocyte abs 0.7 0.2 - 0.8 K/cumm Eosinophil abs 0.2 0.0 - 0.5 K/cumm Basophil abs 0.0 0.0 - 0.1 K/cumm Neutrophil pct 57.9 % Imm gran pct 0.4 % Lymphocyte pct 32.0 % Monocyte pct 7.1 % Eosinophil pct 2.3 % Basophil pct 0.3 % POCT glucose Collection Time: 09/09/21 8:40 AM Result Value Ref Range Glucose, POC 222 (H) 70 - 199 mg/dL POCT glucose Collection Time: 09/09/21 12:24 PM Result Value Ref Range Glucose, POC 287 (H) 70 - 199 mg/dL Basic metabolic panel Collection Time: 09/09/21 1:56 PM Result Value Ref Range Sodium 142 135 - 145 mmol/L Potassium, pl 4.5 3.3 - 4.9 mmol/L Chloride 106 97 - 110 mmol/L CO2 29 22 - 32 mmol/L Anion gap 7 2 - 15 mmol/L BUN 40 (H) 8 - 25 mg/dL Creatinine 1.99 (H) 0.60 - 1.10 mg/dL Glucose 257 (H) 70 - 199 mg/dL Calcium 9.5 8.5 - 10.3 mg/dL eGFR Collection Time: 09/09/21 1:56 PM Result Value Ref Range eGFR 27 (L) 90 - 130 mL/min/1.73 m2 POCT glucose Collection Time: 09/09/21 6:10 PM Result Value Ref Range Glucose, POC 215 (H) 70 - 199 mg/dL POCT glucose Collection Time: 09/09/21 9:24 PM Result Value Ref Range Glucose, POC 181 70 - 199 mg/dL CBC with auto differential Collection Time: 09/09/21 9:49 PM Result Value Ref Range WBC 8.9 3.8 - 9.9 K/cumm Hgb 7.1 (L) 11.9 - 15.5 g/dL Hct 22.3 (L) 35.6 - 45.5 % Plt 259 150 - 400 K/cumm MPV 11.4 9.1 - 12.3 fL RBC 2.39 (L) 3.90 - 5.20 M/cumm MCV 93.3 81.3 - 96.4 fL MCH 29.7 27.1 - 33.3 pg MCHC 31.8 (L) 32.3 - 35.7 g/dL RDW CV 16.1 (H) 11.1 - 14.9 % RDW SD 54.0 (H) 35.7 - 48.1 fL NRBC abs 0.00 0.00 - 0.01 K/cumm Basic metabolic panel Collection Time: 09/09/21 9:49 PM Result Value Ref Range Sodium 145 135 - 145 mmol/L Potassium, pl 4.2 3.3 - 4.9 mmol/L Chloride 107 97 - 110 mmol/L CO2 27 22 - 32 mmol/L Anion gap 11 2 - 15 mmol/L BUN 43 (H) 8 - 25 mg/dL Creatinine 1.94 (H) 0.60 - 1.10 mg/dL Glucose 159 70 - 199 mg/dL Calcium 9.4 8.5 - 10.3 mg/dL Magnesium Collection Time: 09/09/21 9:49 PM Result Value Ref Range Magnesium 1.8 1.4 - 2.5 mg/dL Differential, auto Collection Time: 09/09/21 9:49 PM Result Value Ref Range Neutrophil abs 5.0 1.7 - 6.5 K/cumm Imm gran abs 0.1 0.0 - 0.1 K/cumm Lymphocyte abs 2.8 0.8 - 3.3 K/cumm Monocyte abs 0.8 0.2 - 0.8 K/cumm Eosinophil abs 0.2 0.0 - 0.5 K/cumm Basophil abs 0.0 0.0 - 0.1 K/cumm Neutrophil pct 56.2 % Imm gran pct 0.7 % Lymphocyte pct 31.4 % Monocyte pct 8.7 % Eosinophil pct 2.6 % Basophil pct 0.4 % eGFR Collection Time: 09/09/21 9:49 PM Result Value Ref Range eGFR 27 (L) 90 - 130 mL/min/1.73 m2 I have reviewed the laboratory results. Imaging Results: XR Chest Pa Lateral 2 Views Narrative: EXAMINATION: XR CHEST PA LATERAL 2 VIEWS HISTORY: Peripheral edema COMPARISON: 09/02/2021 Impression: Minimally increased small right pleural effusion with mild right basilar atelectasis. No left pleural effusion. No pneumothorax. Cardiomediastinal silhouette is stable. Dictated by: Luan Colunga M.D. The radiology attending physician has personally reviewed this study, and had reviewed and/or edited this written report and agrees with it. Electronically signed by: Luci Faith M.D. ECG 12 lead Audie Austin MD 09/06/2021 5:49 PM ECG 12 lead Date/Time: 09/06/2021 5:48 PM Performed by: Audie Austin MD Authorized by: Demetri Del Toro IV, [employer] MACHINE OPERATOR Rate: ECG rate: 87 Comments: Normal axis normal sinus rhythm. Rate 87. No STEMI. No change from previous which was done on August 08, 2021. Further workup in the ER. I have independently reviewed and interpreted Cr 1.91, 1.99, 2.23, 1.99, 1.94 Ucx 09/07 insignificant TTE 09/10 Normal LV and RV size and systolic function. LVEF 69%. Normal global LV Myocardial longitudinal function and LV strain pattern. No significant valvular abnormalities noted. Estimated PA systolic pressure 40+RA(5-10) mmHg. Diastolic function is normal for age. LA is normal. Mild concentric LV hypertrophy. Normal Inferior vena cava. Normal aorta. No comparison study. Abd US pending PRIOR Covid-19 RNA + on 08/13/2021 TTE 01/09/20 Normal left ventricular systolic function with no focal wall motion abnormalities. Normal left ventricular size. Normal left ventricular diastolic function. Ejection fraction is visually estimated at 67 %.The left atrium is normal in size. Normal left atrial pressure based on pulmonary vein inflow. The right atrium is normal in size. Right Ventricular Systolic Pressure could not be estimated due to inadequate visualization of TR jet. * Plan of Care - Indira Iglesias RN - 09/09/2021 11:09 PM CDT Goals: Clinical Goals for the Shift: I&Os; monitor vitals; monitor labs; sleep hygiene Problem: Health Behavior: Goal: Understanding of discharge [...] home environment Outcome: Progressing Problem: Activity: Goal: Risk for activity intolerance will decrease Outcome: Progressing Problem: Lack of Knowledge: Goal: Knowledge of diagnostic tests will improve Outcome: Progressing Goal: Knowledge of disease or condition will improve Outcome: Progressing Goal: Knowledge of safety precautions will improve Outcome: Progressing Goal: Knowledge of the prescribed therapeutic regimen will improve Outcome: Progressing Problem: Health Behavior: Goal: Ability to state signs and symptoms to report to health care provider will improve Outcome: Progressing Problem: Physical Regulation: Goal: Ability to maintain clinical measurements within normal limits will improve Outcome: Progressing Problem: Infection Risk: Goal: Will remain free from infection Outcome: Progressing Problem: Safety: Goal: Ability to remain free from injury will improve Outcome: Progressing Goal: Will remain free from falls Outcome: Progressing Problem: Self-Care: Goal: Ability to participate in self-care as condition permits will improve Outcome: Progressing Problem: Sensory: Goal: Pain level will decrease Outcome: Progressing Goal: Ability to develop a pain control plan will improve Outcome: Progressing Problem: Skin Integrity: Goal: Risk for impaired skin integrity will decrease Outcome: Progressing Problem: Tissue Perfusion: Goal: Risk factors for ineffective tissue perfusion will decrease Outcome: Progressing Problem: Activity: Goal: Risk for activity intolerance will decrease Outcome: Progressing Problem: Lack of Knowledge: Goal: Knowledge of diagnostic tests will improve Outcome: Progressing Goal: Knowledge of disease or condition will improve Outcome: Progressing Goal: Knowledge of safety precautions will improve Outcome: Progressing Goal: Knowledge of the prescribed therapeutic regimen will improve Outcome: Progressing Problem: Health Behavior: Goal: Ability to state signs and symptoms to report to health care provider will improve Outcome: Progressing Problem: Physical Regulation: Goal: Ability to maintain clinical measurements within normal limits will improve Outcome: Progressing Problem: Infection Risk: Goal: Will remain free from infection Outcome: Progressing Problem: Safety: Goal: Ability to remain free from injury will improve Outcome: Progressing Goal: Will remain free from falls Outcome: Progressing Problem: Self-Care: Goal: Ability to participate in self-care as condition permits will improve Outcome: Progressing Problem: Sensory: Goal: Pain level will decrease Outcome: Progressing Goal: Ability to develop a pain control plan will improve Outcome: Progressing Problem: Skin Integrity: Goal: Risk for impaired skin integrity will decrease Outcome: Progressing Problem: Tissue Perfusion: Goal: Risk factors for ineffective tissue perfusion will decrease Outcome: Progressing * Plan of Care - Renae Hendrix RN - 09/09/2021 3:57 PM CDT Goals: Clinical Goals for the Shift: I/Os Summary: Problem: Health Behavior: Goal: Understanding of [...] home environment Outcome: Progressing Problem: Activity: Goal: Risk for activity intolerance will decrease Outcome: Progressing Problem: Lack of Knowledge: Goal: Knowledge of diagnostic tests will improve Outcome: Progressing Goal: Knowledge of disease or condition will improve Outcome: Progressing Goal: Knowledge of safety precautions will improve Outcome: Progressing Goal: Knowledge of the prescribed therapeutic regimen will improve Outcome: Progressing Problem: Health Behavior: Goal: Ability to state signs and symptoms to report to health care provider will improve Outcome: Progressing Problem: Physical Regulation: Goal: Ability to maintain clinical measurements within normal limits will improve Outcome: Progressing Problem: Infection Risk: Goal: Will remain free from infection Outcome: Progressing Problem: Safety: Goal: Ability to remain free from injury will improve Outcome: Progressing Goal: Will remain free from falls Outcome: Progressing Problem: Self-Care: Goal: Ability to participate in self-care as condition permits will improve Outcome: Progressing Problem: Sensory: Goal: Pain level will decrease Outcome: Progressing Goal: Ability to develop a pain control plan will improve Outcome: Progressing Problem: Skin Integrity: Goal: Risk for impaired skin integrity will decrease Outcome: Progressing Problem: Tissue Perfusion: Goal: Risk factors for ineffective tissue perfusion will decrease Outcome: Progressing Problem: Activity: Goal: Risk for activity intolerance will decrease Outcome: Progressing Problem: Lack of Knowledge: Goal: Knowledge of diagnostic tests will improve Outcome: Progressing Goal: Knowledge of disease or condition will improve Outcome: Progressing Goal: Knowledge of safety precautions will improve Outcome: Progressing Goal: Knowledge of the prescribed therapeutic regimen will improve Outcome: Progressing Problem: Health Behavior: Goal: Ability to state signs and symptoms to report to health care provider will improve Outcome: Progressing Problem: Physical Regulation: Goal: Ability to maintain clinical measurements within normal limits will improve Outcome: Progressing Problem: Infection Risk: Goal: Will remain free from infection Outcome: Progressing Problem: Safety: Goal: Ability to remain free from injury will improve Outcome: Progressing Goal: Will remain free from falls Outcome: Progressing Problem: Self-Care: Goal: Ability to participate in self-care as condition permits will improve Outcome: Progressing Problem: Sensory: Goal: Pain level will decrease Outcome: Progressing Goal: Ability to develop a pain control plan will improve Outcome: Progressing Problem: Skin Integrity: Goal: Risk for impaired skin integrity will decrease Outcome: Progressing Problem: Tissue Perfusion: Goal: Risk factors for ineffective tissue perfusion will decrease Outcome: Progressing * Plan of Adryan Trinh RN - 09/08/2021 10:13 PM CDT Goals: Clinical Goals for the Shift: Reorient, I/Os Problem: Health Behavior: Goal: Understanding of discharge [...] home environment Outcome: Progressing Problem: Activity: Goal: Risk for activity intolerance will decrease Outcome: Progressing Problem: Lack of Knowledge: Goal: Knowledge of diagnostic tests will improve Outcome: Progressing Goal: Knowledge of disease or condition will improve Outcome: Progressing Goal: Knowledge of safety precautions will improve Outcome: Progressing Goal: Knowledge of the prescribed therapeutic regimen will improve Outcome: Progressing Problem: Health Behavior: Goal: Ability to state signs and symptoms to report to health care provider will improve Outcome: Progressing Problem: Physical Regulation: Goal: Ability to maintain clinical measurements within normal limits will improve Outcome: Progressing Problem: Infection Risk: Goal: Will remain free from infection Outcome: Progressing Problem: Safety: Goal: Ability to remain free from injury will improve Outcome: Progressing Goal: Will remain free from falls Outcome: Progressing Problem: Self-Care: Goal: Ability to participate in self-care as condition permits will improve Outcome: Progressing Problem: Sensory: Goal: Pain level will decrease Outcome: Progressing Goal: Ability to develop a pain control plan will improve Outcome: Progressing Problem: Skin Integrity: Goal: Risk for impaired skin integrity will decrease Outcome: Progressing Problem: Tissue Perfusion: Goal: Risk factors for ineffective tissue perfusion will decrease Outcome: Progressing Problem: Activity: Goal: Risk for activity intolerance will decrease Outcome: Progressing Problem: Lack of Knowledge: Goal: Knowledge of diagnostic tests will improve Outcome: Progressing Goal: Knowledge of disease or condition will improve Outcome: Progressing Goal: Knowledge of safety precautions will improve Outcome: Progressing Goal: Knowledge of the prescribed therapeutic regimen will improve Outcome: Progressing Problem: Health Behavior: Goal: Ability to state signs and symptoms to report to health care provider will improve Outcome: Progressing Problem: Physical Regulation: Goal: Ability to maintain clinical measurements within normal limits will improve Outcome: Progressing Problem: Infection Risk: Goal: Will remain free from infection Outcome: Progressing Problem: Safety: Goal: Ability to remain free from injury will improve Outcome: Progressing Goal: Will remain free from falls Outcome: Progressing Problem: Self-Care: Goal: Ability to participate in self-care as condition permits will improve Outcome: Progressing Problem: Sensory: Goal: Pain level will decrease Outcome: Progressing Goal: Ability to develop a pain control plan will improve Outcome: Progressing Problem: Skin Integrity: Goal: Risk for impaired skin integrity will decrease Outcome: Progressing Problem: Tissue Perfusion: Goal: Risk factors for ineffective tissue perfusion will decrease Outcome: Progressing * Plan of Pee - Renae Hendrix RN - 09/08/2021 2:25 PM CDT Goals: Clinical Goals for the Shift: Reorient, I/Os Summary: Problem: Health Behavior: Goal: Understanding of [...] home environment Outcome: Progressing Problem: Activity: Goal: Risk for activity intolerance will decrease Outcome: Progressing Problem: Lack of Knowledge: Goal: Knowledge of diagnostic tests will improve Outcome: Progressing Goal: Knowledge of disease or condition will improve Outcome: Progressing Goal: Knowledge of safety precautions will improve Outcome: Progressing Goal: Knowledge of the prescribed therapeutic regimen will improve Outcome: Progressing Problem: Health Behavior: Goal: Ability to state signs and symptoms to report to health care provider will improve Outcome: Progressing Problem: Physical Regulation: Goal: Ability to maintain clinical measurements within normal limits will improve Outcome: Progressing Problem: Infection Risk: Goal: Will remain free from infection Outcome: Progressing Problem: Safety: Goal: Ability to remain free from injury will improve Outcome: Progressing Goal: Will remain free from falls Outcome: Progressing Problem: Self-Care: Goal: Ability to participate in self-care as condition permits will improve Outcome: Progressing Problem: Sensory: Goal: Pain level will decrease Outcome: Progressing Goal: Ability to develop a pain control plan will improve Outcome: Progressing Problem: Skin Integrity: Goal: Risk for impaired skin integrity will decrease Outcome: Progressing Problem: Tissue Perfusion: Goal: Risk factors for ineffective tissue perfusion will decrease Outcome: Progressing Problem: Activity: Goal: Risk for activity intolerance will decrease Outcome: Progressing Problem: Lack of Knowledge: Goal: Knowledge of diagnostic tests will improve Outcome: Progressing Goal: Knowledge of disease or condition will improve Outcome: Progressing Goal: Knowledge of safety precautions will improve Outcome: Progressing Goal: Knowledge of the prescribed therapeutic regimen will improve Outcome: Progressing Problem: Health Behavior: Goal: Ability to state signs and symptoms to report to health care provider will improve Outcome: Progressing Problem: Physical Regulation: Goal: Ability to maintain clinical measurements within normal limits will improve Outcome: Progressing Problem: Infection Risk: Goal: Will remain free from infection Outcome: Progressing Problem: Safety: Goal: Ability to remain free from injury will improve Outcome: Progressing Goal: Will remain free from falls Outcome: Progressing Problem: Self-Care: Goal: Ability to participate in self-care as condition permits will improve Outcome: Progressing Problem: Sensory: Goal: Pain level will decrease Outcome: Progressing Goal: Ability to develop a pain control plan will improve Outcome: Progressing Problem: Skin Integrity: Goal: Risk for impaired skin integrity will decrease Outcome: Progressing Problem: Tissue Perfusion: Goal: Risk factors for ineffective tissue perfusion will decrease Outcome: Progressing * Hospital Course - Whit Milligan MD PhD - 09/08/2021 1:04 PM CDT * Volume overload Assessment & Plan Due to progressive CRF4. Presents with increasing [...] with diuretics. Patient appears grossly volume overloaded. Resumed diuretics [id number] IV Q12 & tolerated. Repeat TTE (echocardiogram) with normal LV/RV function.Urinalysis with2+prot, Ucx insignif. Est Cr Cl 21 c/w CRF4. Abdominal US was negative for hydronephrosis, cirrhosis. Suspect volume issues due to HTN/diabetic nephropathy. Reviewed telemetry personally, no events. Monitoring strict I/O. Goal net neg 1/2-1L/day. Weight down 6kg/admit. Renal consulted regarding volume management, possible financial compliance manager dialysis planning, expedite OP f/u. Serologies and urine studies ordered. ED neg, compliments neg, cryoglobulin negative, ANCA negative, HIV neg. Added metolazone 2.5mg/daily per renal 09/13- with improving swelling, Cr bump to 2.33 so held further doses. Transitioned to PO agents prior to DC with ongoing clinical improvement. Goal weight 155lbs, weight on DC was 155. Plan discharge Home with family at [place], board operator consulted to review salt restrictions with daughter. Anemia Assessment & Plan Progressive anemia with Hb 7.1 (dilutional?) from 9.7 over past month ago. 1+ blood in urine, neg cx. Pt denies gross hematuria, epistaxis, melena, hematochezia, hematemesis. Low FeSat, ferritin decreased to 179. Recent normal B12/Folate. Consistent with mixed AOCD/HECTOR. Concerning for occult bleeding, but Hb stable. More likely related to CRF. Started oral iron supplementation and suspect anemia due to progressive CRF. Deferred to renal timing of evaluation for epogen agents. GI made aware 09/09of anemia, will order OP EGD/colonoscopy at time of discharge and GI team will facilitate expeditedscheduling. Noted to have trending down to 7, 7.4, type and screen updated. Guiac stool neg 09/15. Co nsented for blood transfusion, goal Hb > 7, give lasix 20 IV if giving blood. Hemoglobin on discharge was 8.7. F/u with PCP and renal clinic. Acute renal failure superimposed on stage 4 chronic kidney disease (CMS/HCC) ([facility]) Assessment & Plan known CKD, likely 2/2 dm. Baseline Cr ~1.6, follows with nephrology outpatient. Cr 2.1 on admit w/ FEUrea 27% consistent with pre-renal injury such as cardiorenal syndrome, however normal LV/RV sys/diastolic function. Urinalysis with 1+ blood in setting of possible UTI. Cr improved initially after first dose of diuretics, worsened slightly with holding further diuresis & patient remained volume overloaded. Urine culture was insignificant.. Resumed IV diuresis 09/10, remained nonoliguric. Monitored electrolytes and renal function, unable to monitor strict I/O in setting of urinary incontinence, so followed serial weight loss. Avoided geller, if possible.Avoided nephrotoxic agents/renally dose medications. F/u Creatinine was 1.8-2.3. Level on DC was 2.33. 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 Renal clinic OP follow up in two weeks, with OP labs in 1 week. Dementia ([facility]) Assessment & Plan Reported baseline dementia, `AOX2-3. Corroborated by daughter who she lives with. Frequent hospitalizations this year. Suspect med compliance may be an issue. Currently at baseline neurological status. Managed on delirium precautions. PT rec 24 supervision with family, OT rec SNF. Spoke with Daughter Honey Gayle [phone]. CM following for dispo planning & [facility] orders placed 09/13. Pt's daughter states she works, but has daughter who could be available during that time. Asking about additional resources for home care. CM notified & additional resources provided. Plan home at [place] with 24hr supervision, Home Health Care ordered. Type 2 diabetes mellitus with diabetic neuropathy, with long-term current use of insulin ([facility]) ([facility]) Assessment & Plan Home regimen lantus 18, lispro 5 TID [...] for strict med oversight by family at [place] reviewed with daughter this admit. Schizoaffective disorder, bipolar type ([facility]/HCC) ([facility]) Assessment & Plan Hx of schizoaffective disorder, follows with psych outpatient. Earlier in year had been on daily haldol, weaned off due to increased fatigue. Currently no active psychotic manic symptoms, mood is stable and pleasant, cooperative with exam, testing and management. Continued home risperdal 2mg BID, remains alert. No extrapyramidal symptoms noted on exam. Diabetic neuropathy ([facility]) ([facility]) Assessment & Plan Ongoing symptoms. Previously on lyrica and Likely exacerbated by volume status. Monitor for response with diuresis, improved with less swelling. * Plan of Care - Adryan Nicole RN - 09/07/2021 10:24 PM CDT Goals: Clinical Goals for the Shift: orientation to unit, maintain safety Problem: Health Behavior: Goal: Understanding of [...] home environment Outcome: Progressing Problem: Activity: Goal: Risk for activity intolerance will decrease Outcome: Progressing Problem: Lack of Knowledge: Goal: Knowledge of diagnostic tests will improve Outcome: Progressing Goal: Knowledge of disease or condition will improve Outcome: Progressing Goal: Knowledge of safety precautions will improve Outcome: Progressing Goal: Knowledge of the prescribed therapeutic regimen will improve Outcome: Progressing Problem: Health Behavior: Goal: Ability to state signs and symptoms to report to health care provider will improve Outcome: Progressing Problem: Physical Regulation: Goal: Ability to maintain clinical measurements within normal limits will improve Outcome: Progressing Problem: Infection Risk: Goal: Will remain free from infection Outcome: Progressing Problem: Safety: Goal: Ability to remain free from injury will improve Outcome: Progressing Goal: Will remain free from falls Outcome: Progressing Problem: Self-Care: Goal: Ability to participate in self-care as condition permits will improve Outcome: Progressing Problem: Sensory: Goal: Pain level will decrease Outcome: Progressing Goal: Ability to develop a pain control plan will improve Outcome: Progressing Problem: Skin Integrity: Goal: Risk for impaired skin integrity will decrease Outcome: Progressing Problem: Tissue Perfusion: Goal: Risk factors for ineffective tissue perfusion will decrease Outcome: Progressing Problem: Activity: Goal: Risk for activity intolerance will decrease Outcome: Progressing Problem: Lack of Knowledge: Goal: Knowledge of diagnostic tests will improve Outcome: Progressing Goal: Knowledge of disease or condition will improve Outcome: Progressing Goal: Knowledge of safety precautions will improve Outcome: Progressing Goal: Knowledge of the prescribed therapeutic regimen will improve Outcome: Progressing Problem: Health Behavior: Goal: Ability to state signs and symptoms to report to health care provider will improve Outcome: Progressing Problem: Physical Regulation: Goal: Ability to maintain clinical measurements within normal limits will improve Outcome: Progressing Problem: Infection Risk: Goal: Will remain free from infection Outcome: Progressing Problem: Safety: Goal: Ability to remain free from injury will improve Outcome: Progressing Goal: Will remain free from falls Outcome: Progressing Problem: Self-Care: Goal: Ability to participate in self-care as condition permits will improve Outcome: Progressing Problem: Sensory: Goal: Pain level will decrease Outcome: Progressing Goal: Ability to develop a pain control plan will improve Outcome: Progressing Problem: Skin Integrity: Goal: Risk for impaired skin integrity will decrease Outcome: Progressing Problem: Tissue Perfusion: Goal: Risk factors for ineffective tissue perfusion will decrease Outcome: Progressing * Plan of Care - Paz Garcia RN - 09/07/2021 6:22 PM CDT Goals: Clinical Goals for the Shift: orientation to unit, maintain safety Summary: Problem: Health Behavior: Goal: Understanding [...] home environment Outcome: Progressing Problem: Activity: Goal: Risk for activity intolerance will decrease Outcome: Progressing Problem: Lack of Knowledge: Goal: Knowledge of diagnostic tests will improve Outcome: Progressing Goal: Knowledge of disease or condition will improve Outcome: Progressing Goal: Knowledge of safety precautions will improve Outcome: Progressing Goal: Knowledge of the prescribed therapeutic regimen will improve Outcome: Progressing Problem: Health Behavior: Goal: Ability to state signs and symptoms to report to health care provider will improve Outcome: Progressing Problem: Physical Regulation: Goal: Ability to maintain clinical measurements within normal limits will improve Outcome: Progressing Problem: Infection Risk: Goal: Will remain free from infection Outcome: Progressing Problem: Safety: Goal: Ability to remain free from injury will improve Outcome: Progressing Goal: Will remain free from falls Outcome: Progressing Problem: Self-Care: Goal: Ability to participate in self-care as condition permits will improve Outcome: Progressing Problem: Sensory: Goal: Pain level will decrease Outcome: Progressing Goal: Ability to develop a pain control plan will improve Outcome: Progressing Problem: Skin Integrity: Goal: Risk for impaired skin integrity will decrease Outcome: Progressing Problem: Tissue Perfusion: Goal: Risk factors for ineffective tissue perfusion will decrease Outcome: Progressing Problem: Activity: Goal: Risk for activity intolerance will decrease Outcome: Progressing Problem: Lack of Knowledge: Goal: Knowledge of diagnostic tests will improve Outcome: Progressing Goal: Knowledge of disease or condition will improve Outcome: Progressing Goal: Knowledge of safety precautions will improve Outcome: Progressing Goal: Knowledge of the prescribed therapeutic regimen will improve Outcome: Progressing Problem: Health Behavior: Goal: Ability to state signs and symptoms to report to health care provider will improve Outcome: Progressing Problem: Physical Regulation: Goal: Ability to maintain clinical measurements within normal limits will improve Outcome: Progressing Problem: Infection Risk: Goal: Will remain free from infection Outcome: Progressing Problem: Safety: Goal: Ability to remain free from injury will improve Outcome: Progressing Goal: Will remain free from falls Outcome: Progressing Problem: Self-Care: Goal: Ability to participate in self-care as condition permits will improve Outcome: Progressing Problem: Sensory: Goal: Pain level will decrease Outcome: Progressing Goal: Ability to develop a pain control plan will improve Outcome: Progressing Problem: Skin Integrity: Goal: Risk for impaired skin integrity will decrease Outcome: Progressing Problem: Tissue Perfusion: Goal: Risk factors for ineffective tissue perfusion will decrease Outcome: Progressing * Assessment & Plan Note - Maddi Aaron MD - 09/07/2021 1:23 PM CDT Associated Problem(s): Type 2 diabetes mellitus with diabetic neuropathy, with long-term current use of insulin (HCC) Home regimen lantus 18, lispro 5 TID AC + SSI, had recently had trulicity held due to renal function. Follows with endocrinology outpatient. A1c 8.4. Requiring multiple units of SSI daily. -Continue home statin -Increased glargine to 24 units qPM, lispro to 8units TID, continue SSI Complicated by diabetic neuropathy and nephropathy. * Assessment & Plan Note - Maddi Aaron MD - 09/07/2021 1:23 PM CDT Associated Problem(s): Schizoaffective disorder, bipolar type (CMS/HCC) (HCC) (Deleted) Hx of schizoaffective disorder, follows with psych outpatient. Earlier in year had been on daily haldol, weaned off due to increased fatigue. - currently no active psychotic manic symptoms, mood is stable and pleasant - continue home risperdal 2mg BID * Assessment & Plan Note - Maddi Aaron MD - 09/07/2021 1:23 PM CDT Associated Problem(s): Dementia (HCC) (Deleted) Reported baseline dementia, `AOX2-3. Corroborated by daughter who she lives with. Frequent hospitalizations this year. Suspect med compliance may be an issue. - currently at baseline neurological status -delirium precautions - PT OT Eval * Assessment & Plan Note - Maddi Aaron MD - 09/07/2021 1:22 PM CDT Associated Problem(s): Anemia (Deleted) Progressive anemia with Hb 7.1 from 9.7 over past month ago. 1+ blood in urine, neg cx. Pt denies gross hematuria, epistaxis, melena, hematochezia, hematemesis. Low FeSat, ferritin decreased to 179. Recent normal B12/Folate. Concerning for occult bleeding -Started oral iron supplementation -suspect anemia in s/o progressive CRF. -GI made aware 09/09, will order OP EGD/colonoscopy at time of discharge and GI team will facilitateexpedited scheduling -Consented for blood transfusion, goal Hb > 7, give lasix 20 IV if giving blood * Assessment & Plan Note - Maddi Aaron MD - 09/07/2021 1:19 PM CDT Associated Problem(s): Acute renal failure superimposed on stage 4 chronic kidney disease (CMS/HCC)(HCC) (Deleted) A: known CKD, likely 2/2 dm. Baseline Cr ~1.4, follows with nephrology outpatient. Cr 2.1 on admission of unclear etiology. FEUrea 27% consistent with pre-renal injury such as cardiorenal syndrome. Urinalysis with 1+ blood in setting of possible UTI. Cr improved initially after first dose of diuretics, worsened slightly with further diuresis & held, patient remains volume overloaded. -Ucx insignif -resume diuresis -Daily BMP, strict I/O - hold nephrotoxic agents/renally dose medications * Assessment & Plan Note - Maddi Aaron MD - 09/07/2021 1:18 PM CDT Associated Problem(s): Volume overload Presents with increasing swelling, 6lb weight gain, daughter voicing concerns of exertional dyspnea/orthopnea as well. Last echo in 2019 grossly normal, per cards note had recent one with G1ddf. No ischemic hx or diuretic use. Has 1+ pitting edema in BL LE, no pulmonary edema on CXR, BNP 500. Renalfunction improved after 20 IV lasix on day [...] net neg 1/2-1L/day. -consider renal consult regarding financial compliance manager dialysis planning. * Plan of Care - Felicity Majano RN - 09/07/2021 5:41 AM CDT Problem: Health Behavior: Goal: Understanding of discharge needs will improve 09/07/2021 0541 by Felicity Majano RN Outcome: Progressing 09/07/2021 0528 by Felicity Majano RN Outcome: Progressing Problem: Lack of Knowledge: Goal: Ability to state ways to decrease the risk of falls will improve 09/07/2021 0541 by Felicity Majano RN Outcome: Progressing 09/07/2021 0528 by Felicity Majano RN Outcome: Progressing Problem: Safety: Goal: Will remain free from falls 09/07/2021 0541 by Felicity Majano RN Outcome: Progressing 09/07/2021 0528 by Felicity Majano RN Outcome: Progressing Goal: Will remain free from injury from falls 09/07/2021 0541 by Felicity Majano RN Outcome: Progressing 09/07/2021 0528 by Felicity Majano RN Outcome: Progressing Goal: Will remain free from falls and injury in home environment 09/07/2021 0541 by Felicity Majano RN Outcome: Progressing 09/07/2021 0528 by Felicity Majano RN Outcome: Progressing Problem: Activity: Goal: Risk for activity intolerance will decrease 09/07/2021 0541 by Felicity Majano RN Outcome: Progressing 09/07/2021 0528 by Felicity Majano RN Outcome: Progressing Problem: Lack of Knowledge: Goal: Knowledge of diagnostic tests will improve 09/07/2021 0541 by Felicity Majano RN Outcome: Progressing 09/07/2021 0528 by Felicity Majano RN Outcome: Progressing Goal: Knowledge of disease or condition will improve 09/07/2021 0541 by Felicity Majano RN Outcome: Progressing 09/07/2021 0528 by Felicity Majano RN Outcome: Progressing Goal: Knowledge of safety precautions will improve 09/07/2021 0541 by Felicity Majano RN Outcome: Progressing 09/07/2021 0528 by Felicity Majano RN Outcome: Progressing Goal: Knowledge of the prescribed therapeutic regimen will improve 09/07/2021 0541 by Felicity Majano RN Outcome: Progressing 09/07/2021 0528 by Felicity Majano RN Outcome: Progressing Problem: Health Behavior: Goal: Ability to state signs and symptoms to report to health care provider will improve 09/07/2021 0541 by Felicity Majano RN Outcome: Progressing 09/07/2021 0528 by Felicity Majano RN Outcome: Progressing Problem: Physical Regulation: Goal: Ability to maintain clinical measurements within normal limits will improve 09/07/2021 0541 by Felicity Majano RN Outcome: Progressing 09/07/2021 0528 by Felicity Majano RN Outcome: Progressing Problem: Infection Risk: Goal: Will remain free from infection 09/07/2021 0541 by Felicity Majano RN Outcome: Progressing 09/07/2021 0528 by Felicity Majano RN Outcome: Progressing Problem: Safety: Goal: Ability to remain free from injury will improve 09/07/2021 0541 by Felicity Majano RN Outcome: Progressing 09/07/2021 0528 by Felicity Majano RN Outcome: Progressing Goal: Will remain free from falls 09/07/2021 0541 by Felicity Majano RN Outcome: Progressing 09/07/2021 0528 by Felicity Majano RN Outcome: Progressing Problem: Self-Care: Goal: Ability to participate in self-care as condition permits will improve 09/07/2021 0541 by Felicity Majano RN Outcome: Progressing 09/07/2021 0528 by Felicity Majano RN Outcome: Progressing Problem: Sensory: Goal: Pain level will decrease 09/07/2021 0541 by Felicity Majano RN Outcome: Progressing 09/07/2021 0528 by Felicity Majano RN Outcome: Progressing Goal: Ability to develop a pain control plan will improve 09/07/2021 0541 by Felicity Majano RN Outcome: Progressing 09/07/2021 0528 by Felicity Majano RN Outcome: Progressing Problem: Skin Integrity: Goal: Risk for impaired skin integrity will decrease 09/07/2021 0541 by Felicity Majano RN Outcome: Progressing 09/07/2021 0528 by Felicity Majano RN Outcome: Progressing Problem: Tissue Perfusion: Goal: Risk factors for ineffective tissue perfusion will decrease 09/07/2021 0541 by Felicity Majano RN Outcome: Progressing 09/07/2021 0528 by Felicity Majano RN Outcome: Progressing Problem: Activity: Goal: Risk for activity intolerance will decrease Outcome: Progressing Problem: Lack of Knowledge: Goal: Knowledge of diagnostic tests will improve Outcome: Progressing Goal: Knowledge of disease or condition will improve Outcome: Progressing Goal: Knowledge of safety precautions will improve Outcome: Progressing Goal: Knowledge of the prescribed therapeutic regimen will improve Outcome: Progressing Problem: Health Behavior: Goal: Ability to state signs and symptoms to report to health care provider will improve Outcome: Progressing Problem: Physical Regulation: Goal: Ability to maintain clinical measurements within normal limits will improve Outcome: Progressing Problem: Infection Risk: Goal: Will remain free from infection Outcome: Progressing Problem: Safety: Goal: Ability to remain free from injury will improve Outcome: Progressing Goal: Will remain free from falls Outcome: Progressing Problem: Self-Care: Goal: Ability to participate in self-care as condition permits will improve Outcome: Progressing Problem: Sensory: Goal: Pain level will decrease Outcome: Progressing Goal: Ability to develop a pain control plan will improve Outcome: Progressing Problem: Skin Integrity: Goal: Risk for impaired skin integrity will decrease Outcome: Progressing Problem: Tissue Perfusion: Goal: Risk factors for ineffective tissue perfusion will decrease Outcome: Progressing Goals: Summary: pt orientated to unit, rested calmly in bed. Bed alarm in place and fall education provided. Requires SB assist to BSC * Assessment & Plan Note - Sagar Moreno MD - 09/06/2021 10:29 PM CDT Associated Problem(s): Dementia (HCC) (Deleted) Pt with reported baseline dementia, `AOX2-3. Corroborated by daughter who she lives with. Frequent hospitalizations this year. - currently at baseline neurological status - PT OT Eval * Assessment & Plan Note - Sagar Moreno MD - 09/06/2021 10:29 PM CDT Associated Problem(s): Schizoaffective disorder, bipolar type (CMS/HCC) (HCC) (Deleted) Pt with hx of schizoaffective disorder, follows with psych outpatient. Earlier in year had been on daily haldol, weaned off due to increased fatigue. - currently no active psychotic manic symptoms, mood is stable and pleasant - continue home risperdal 2mg BID * Assessment & Plan Note - Sagar Moreno MD - 09/06/2021 10:26 PM CDT Associated Problem(s): Volume overload Pt with increasing swelling, 6lb weight gain, [...] watch creatinine closely - telemetry, strict I/O * Assessment & Plan Note - Sagar Moreno MD - 09/06/2021 10:24 PM CDT Associated Problem(s): Type 2 diabetes mellitus with diabetic neuropathy, with long-term current use of insulin (HCC) Home regimen most recnetly ast lantus 18, lispro 5 TID AC + SSI, had recently had trulicity held. Follows with endocrinology outpatient - sugars poorly controlled in past, has had R toe amputation previously - 247 on admission here, will resume home regimen as above and ctm. Daughter requesting endo consult as she had discussed this with outpatient international tax manager - repeat A1c - resume home statin, not currently on feliciano due to kidney function * Assessment & Plan Note - Sagar Moreno MD - 09/06/2021 10:22 PM CDT Associated Problem(s): Acute renal failure superimposed on stage 4 chronic kidney disease (CMS/HCC)(HCC) (Deleted) Pt with known CKD, likely 2/2 dm. Baseline Cr ~1.4, follows with nephrology outpatient. - presenting with Cr up to 2.1, has had multiple recent fluctuations this year. Slightly overloadedon exam, c/f cardiorenal presentation and no other etiology clear from hx (no new meds, eating/drinking well reportedly.) - as per below, concern for hfpEF, more swollen on exam, 6lb weight gain per pcp PLAN - will obtain UA, urine sodium/urea/Cr - HF mgmt as below - s/p lasix IV 20mg IV in ed, repeat Cr in am before further diuresis - hold nephrotoxic agents/renally dose medications * Subjective & Objective - Sagar Moreno MD - 09/06/2021 10:03 PM CDT History and Physical Division of Hospital Medicine Name: Barbara Chakraborty Today: September 06, 2021 : 1950 Age: 70 y.o. female Subjective Ms. Chakraborty is a 70 y.o. female with chief complaint of STEFANO, volume overload. HPI: Ms. Barbara Chakraborty is a 70 year old lady with a pmh of DM2, schizoaffective disorder, and dementia (baseline AOx2-3) who presented to the ED after seeing her primary care doctor with labs showing STEFANO and exam concerning for volume overload. Patient had recently been admitted until 08/14 for confusion and weakness, where she had been discharged to a SNF. She returned home with the daughter about a week ago, but daughter has noticed progressive fatigue, swelling, shortness of breath with exertion. They went to their PCP which showed a 6lb weight gain, Cr up to 2.1 (previous baseline around 1.4.) She was directed to the ED for c/f of HF and STEFANO on CKD. On evaluation in the ED pt resting comfortably, AOx2. Vitals were stable with no oxygen requirement. Labs notable from BNP 522, Creat 2.1, and otherwise normal chemistry. A CXR revealed slight increased in previously small pleural effusions. Pt was given 20mg IV lasix and admitted for further management. Pt denied fever, chills, shortness of breath at rest, or any pain. She does feel she has had problems with swelling in her legs. She denies orthopnea but she also reports she does not like to lie flat at all and always sleeps at an incline. Story corroborated via phone with daughter Ursula. Past Medical History: Diagnosis Date Arthritis Depression Diabetic neuropathy (CMS/HCC) (HCC) Hyperlipidemia Hypertension Schizophrenia (HCC) Type 2 diabetes mellitus ([facility]) Past Surgical History: Procedure Laterality Date SECTION Right right foot TOE AMPUTATION Right 01/06/2020 4th toe amp/ foot debridement/ Dr. Anat Pelayo No current facility-administered medications on file prior to encounter. Current Outpatient Medications on File Prior to Encounter Medication Sig amLODIPine (NORVASC) 10 mg tablet Take 10 mg by mouth daily atorvastatin (LIPITOR) 40 mg tablet Take 1 tablet (40 mg total) by mouth daily BD Arlyn 2nd Gen Pen Needle 32 gauge x /32 needle USE TO INJECT BASAGLAR EVERY NIGHT AT BEDTIME blood pressure monitor kit Check BP as instructed capsaicin (ZOSTRIX) 0.025 % cream Apply topically 2 (two) times a day conner.stocking,thigh,reg,med misc Wear as much as possible dulaglutide (TRULICITY) 0.75 mg/0.5 mL pen injector Inject 0.5 mL (0.75 mg total) under the skin once a week famotidine (PEPCID) 40 mg tablet Take 1 tablet (40 mg total) by mouth daily glucose 4 gram chewable tablet Take 4 tablets (16 g total) by mouth as needed for low blood sugar (less than 70) and let Dr. Corcoran know! insulin glargine (LANTUS, SEMGLEE) 100 unit/mL vial for injection Inject 18 Units under the skin nightly (Patient taking differently: Inject 15 Units under the skin nightly) insulin lispro (HumaLOG, ADMELOG) 100 unit/mL vial for injection Inject 5.31 Units under the skin 3(three) times a day with meals insulin lispro (HumaLOG, ADMELOG) 100 unit/mL vial for injection Inject 0-10 Units under the skin 3(three) times a day with meals insulin lispro (HumaLOG, ADMELOG) 100 unit/mL vial for injection Inject 0-5 Units under the skin nightly lancets [facility] Check blood sugar up to 3 times a day lidocaine (LIDODERM) 5 % Place 1 patch on the skin daily Apply to painful area 12 hours per day, remove for 12 hours. miscellaneous medical supply (Blood Pressure Cuff) [facility] Use to check blood pressure daily multivitamin with minerals tablet Take 1 tablet by mouth daily gfjuutgo-mmdpewjhx-xyuSRPNZfsolu (MAXITROL) 3.5mg/mL-10,000 unit/mL-0.1 % ophthalmic suspension OneTouch Verio test strips strip TEST 3 TO 4 TIMES DAILY polyethylene glycol (MIRALAX) 17 gram packet Take 1 packet (17 g total) by mouth daily pregabalin (LYRICA) 150 mg capsule TAKE 1 CAPSULE(150 MG) BY MOUTH EVERY NIGHT risperiDONE (RisperDAL) 2 mg tablet Take 1 tablet (2 mg total) by mouth nightly syringe with needle, insulin (INSULIN SYRINGE-NEEDLE U-100 [facility]) 3 times a day [DISCONTINUED] meclizine (ANTIVERT) 25 mg tablet [DISCONTINUED] omeprazole (PriLOSEC) 20 mg capsule Take 1 capsule (20 mg total) by mouth daily No Known Allergies Social History Tobacco Use Smoking status: Never Smoker Smokeless tobacco: Never Used Substance Use Topics Alcohol use: Not Currently Family History Problem Relation Age of Onset Stomach cancer Father Family History reviewed and non-contributory. Review of Systems All other systems were reviewed and are negative except for that which is listed in the History of Present Illness. Objective Vitals: 24hr Min/Max: Temp Min: 36.1 ??C (97 ??F) Max: 36.2 ??C (97.1 ??F) Pulse Min: 82 Max: 98 BP Min: 119/60 Max: 160/56 Resp Min: 14 Max: 18 SpO2 Min: 91 % Max: 100 % Most Recent Vitals: Vitals: 09/06/212129 BP: 146/70 Pulse: 87 Resp: Temp: SpO2: 100% No intake or output data in the 24 hours ending 09/06/212202 Physical Exam Constitutional: NAD, well developed, well nourished Eyes: PERRL, EOMI, anicteric ENT: NCAT, oropharynx normal, moist mucus membranes Lungs: Clear to auscultation in all lung cavanaugh, unlabored Cardiovascular: RRR, normal S1 and S2, no murmurs, no JVD GI: Soft, non-tender, non-distended, bowel sounds +, no organomegaly Skin: No new rashes, lesions or bruises on visible skin Extremities: 1+ dependent LE edema Lymph: No cervical, supraclavicular, axillary or inguinal adenopathy Neurologic: AOx2 (doesn't know president, thinks is in [place] but knows its [facility]) Psychiatric: Normal affect and mood I have reviewed the patient's vital signs. Lab/Diagnostic Review: Recent Results (from the past 36 hour(s)) Pro B-type natriuretic peptide Collection Time: 09/06/21 10:19 AM Result Value Ref Range NT-proBNP 522 (H) <=300 pg/mL Comprehensive metabolic panel Collection Time: 09/06/21 10:19 AM Result Value Ref Range Sodium 143 135 - 145 mmol/L Potassium, pl 4.6 3.3 - 4.9 mmol/L Chloride 109 97 - 110 mmol/L CO2 23 22 - 32 mmol/L Anion gap 11 2 - 15 mmol/L BUN 50 (H) 8 - 25 mg/dL Creatinine 2.10 (H) 0.60 - 1.10 mg/dL Glucose 247 (H) 70 - 199 mg/dL Calcium 9.1 8.5 - 10.3 mg/dL Bilirubin, total 0.2 0.1 - 1.2 mg/dL Protein, pl 7.1 6.5 - 8.5 g/dL Albumin 3.6 3.5 - 5.0 g/dL Alk phos 134 (H) 40 - 130 Units/L ALT 17 7 - 45 Units/L AST 17 10 - 45 Units/L eGFR Collection Time: 09/06/21 10:19 AM Result Value Ref Range eGFR 25 mL/min/1.73 m2 POCT glucose Collection Time: 09/06/21 2:44 PM Result Value Ref Range Glucose, POC 167 70 - 199 mg/dL Troponin I high-sensitivity series (baseline, 2hr, 4hr, 6hr) Collection Time: 09/06/21 5:27 PM Result Value Ref Range Trop I hs 5 <=17 ng/L Troponin I high-sensitivity 2-hour Collection Time: 09/06/21 7:56 PM Result Value Ref Range Trop I hs 4 <=17 ng/L Trop I hs delta -1 ng/L Trop I hs interp Insignificant POCT glucose Collection Time: 09/06/21 8:02 PM Result Value Ref Range Glucose, POC 187 70 - 199 mg/dL I have reviewed the laboratory results. Imaging Results: XR Chest Pa Lateral 2 Views Narrative: EXAMINATION: XR CHEST PA LATERAL 2 VIEWS HISTORY: Peripheral edema COMPARISON: 09/02/2021 Impression: Minimally increased small right pleural effusion with mild right basilar atelectasis. No left pleural effusion. No pneumothorax. Cardiomediastinal silhouette is stable. Dictated by: Luan Colunga M.D. The radiology attending physician has personally reviewed this study, and had reviewed and/or edited this written report and agrees with it. Electronically signed by: Luci Faith M.D. ECG 12 lead Audie Austin MD 09/06/2021 5:49 PM ECG 12 lead Date/Time: 09/06/2021 5:48 PM Performed by: Audie Austin MD Authorized by: Demetri Del Toro IV, RUG UNDERLAY MACHINE OPERATOR Rate: ECG rate: 87 Comments: Normal axis normal sinus rhythm. Rate 87. No STEMI. No change from previous which was done on August 08, 2021. Further workup in the ER. * ED Re-evaluation Note - Augusta Maciel NP - 09/06/2021 7:30 PM CDT ED Re-evaluation TRANSITION OF CARE: I, Augusta Maciel NP, am taking signout from JARAD Del Toro . I have reviewed all pertinent vitalsigns, allergies, and history available in the chart. Summary: 70 y.o. female with a PMH of stage 3 CKD, HTN, HLD, dementia, schizophrenia, and T2DM reports to the ED after her PCP advised her to come in for admission for 6Lb weight gain in one week, increased Cr to 2.10 from 1.65 on 08/09/21, elevated BNP (522), and CXR with worsening R pleural effusion. Pt received 20mg of lasix with good urine output. Troponin negative x 2. Denies CP. Plans to admit to medicine for STEFANO on CKD, and diuresis. Pending: admission bed Dispo: admit ED Course as of 09/07/21 0009 Time: 09/06 163 Comment: Spot read of CXR with ?trace bibasilar opacities. Awaiting official read. Trop negative will plan for admission. By: Demetri Del Toro IV, NP Time: 09/06 2136 Value: XR Chest Pa Lateral 2 Views Comment: IMPRESSION: Minimally increased small right pleural effusion with mild right basilar atelectasis. No left pleural effusion. No pneumothorax. Cardiomediastinal silhouette is stable. ?? Dictated by: Luan Colunga M.D. By: Augusta Maciel NP Time: 09/06 2137 Comment: Pt received 20mg of Lasix around 1621. Troponin unremarkable x 2. Denies CP. Currently waiting for medicine admit bed. By: Augusta Maciel NP Schlattmann, Haley Nicole, NP 09/07/21 0009 * ED Procedure Note - Audie Austin MD - 09/06/2021 5:48 PM CDTAssociated Order(s): ECG 12 lead Procedure ECG 12 lead Date/Time: 09/06/2021 5:48 PM Performed by: Audie Austin MD Authorized by: Demetri Del Toro IV RUG UNDERLAY MACHINE OPERATOR Rate: ECG rate: 87 Comments: Normal axis normal sinus rhythm. Rate 87. No STEMI. No change from previous which was done on August 08, 2021. Further workup in the ER. 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 - 07/13/2024 9:30 AM KNIFE FINISHER Surgery [facility] [address] [place] [address] Jaya Grier MD [address] [facility] [address] [place] [id number] ESOPHAGOGASTRODUODENOSCOPY Scheduled Procedures Name Priority Associated Diagnoses Date/Ti me ESOPHAGOGASTRODUODENOSCOPY Anemia, unspecified type Gastritis without bleeding, unspecified chronicity, unspecified gastritis type 07/13/2024 9:00 AM KNIFE FINISHER COLONOSCOPY Iron deficiency anemia due to chronic blood loss documented as of this encounter Procedures Procedure Name Priority Date/Time Associated Diagnosis Comments POCT GLUCOSE DEVICE Routine 09/18/2021 1 1:36 AM CDT POCT GLUCOSE DEVICE Routine 09/18/2021 7 :33 AM CDT POCT GLUCOSE DEVICE Routine 09/17/2021 9 :37 PM CDT EGFR Routine 09/17/2021 8:08 PM CDT DIFFERENTIAL AUTO Routine 09/17/2021 8:0 8 PM CDT CBC WITH AUTO DIFFERENTIAL Routine 09/17/2021 8:08 PM CDT MAGNESIUM Routine 09/17/2021 8:08 PM CDT BASIC METABOLIC PANEL Routine 09/17/2021 8:08 PM CDT POCT GLUCOSE DEVICE Routine 09/17/2021 5 :26 PM CDT POCT GLUCOSE DEVICE Routine 09/17/2021 1 2:18 PM CDT POCT GLUCOSE DEVICE Routine 09/17/2021 7 :43 AM CDT POCT GLUCOSE DEVICE Routine 09/16/2021 8 :15 PM CDT EGFR Routine 09/16/2021 8:10 PM CDT DIFFERENTIAL AUTO Routine 09/16/2021 8:1 0 PM CDT CBC WITH AUTO DIFFERENTIAL Routine 09/16/2021 8:10 PM CDT HEPATITIS B CORE ANTIBODY, TOTAL Routine 09/16/2021 8:10 PM CDT HEPATITIS B SURFACE ANTIBODY (IMMUNE STATUS) Routine 09/16/2021 8:10 PM CDT HEPATITIS B SURFACE ANTIGEN Routine 09/16/2021 8:10 PM CDT MAGNESIUM Routine 09/16/2021 8:10 PM CDT BASIC METABOLIC PANEL Routine 09/16/2021 8:10 PM CDT POCT GLUCOSE DEVICE Routine 09/16/2021 5 :17 PM CDT POCT GLUCOSE DEVICE Routine 09/16/2021 1 2:24 PM CDT POCT GLUCOSE DEVICE Routine 09/16/2021 9 :15 AM CDT POCT GLUCOSE DEVICE Routine 09/15/2021 1 0:16 PM CDT EGFR Routine 09/15/2021 10:10 PM CDT DIFFERENTIAL AUTO Routine 09/15/2021 10: 10 PM CDT CBC WITH AUTO DIFFERENTIAL Routine 09/15/2021 10:10 PM CDT MAGNESIUM Routine 09/15/2021 10:10 PM CDT BASIC METABOLIC PANEL Routine 09/15/2021 10:10 PM CDT POCT GLUCOSE DEVICE Routine 09/15/2021 5 :07 PM CDT POCT GLUCOSE DEVICE Routine 09/15/2021 1 1:45 AM CDT POCT GLUCOSE DEVICE Routine 09/15/2021 8 :03 AM CDT EGFR Routine 09/14/2021 11:31 PM CDT DIFFERENTIAL AUTO Routine 09/14/2021 11: 31 PM CDT CBC WITH AUTO DIFFERENTIAL Routine 09/14/2021 11:31 PM CDT MAGNESIUM Routine 09/14/2021 11:31 PM CDT BASIC METABOLIC PANEL Routine 09/14/2021 11:31 PM CDT POCT GLUCOSE DEVICE Routine 09/14/2021 1 1:05 PM CDT POCT GLUCOSE DEVICE Routine 09/14/2021 5 :15 PM CDT PROTEIN / CREATININE RATIO, URINE, RANDOM Routine 09/14/2021 11:49 AM CDT ALBUMIN CREATININE RATIO, URINE Routine 09/14/2021 11:49 AM CDT POCT GLUCOSE DEVICE Routine 09/14/2021 1 1:36 AM CDT POCT GLUCOSE DEVICE Routine 09/14/2021 9 :26 AM CDT POCT GLUCOSE DEVICE Routine 09/13/2021 9 :46 PM CDT IMMUNOTYPING Routine 09/13/2021 9:35 PM CDT ED REFLEX TO QUANTITATIVE AND DSDNA Routine 09/13/2021 9:35 PM CDT EGFR Routine 09/13/2021 9:35 PM CDT DIFFERENTIAL AUTO Routine 09/13/2021 9:3 5 PM CDT C4 COMPLEMENT Routine 09/13/2021 9:35 PM CDT IMMUNOGLOBULIN FREE LIGHT CHAINS Routine 09/13/2021 9:35 PM CDT HIV 1/2 ANTIBODY PLUS P24 ANTIGEN Routine 09/13/2021 9:35 PM CDT CRYOGLOBULIN, SERUM ONLY Routine 09/13/2021 9:35 PM CDT BASIC METABOLIC PANEL, SERUM Routine 09/13/2021 9:35 PM CDT ANTI-NEUTROPHILIC CYTOPLASMIC ANTIBODY (ANCA) WITH REFLEX TO MPO AND PR3 ABS Routine 09/13/2021 9:35 PM CDT CBC WITH AUTO DIFFERENTIAL Routine 09/13/2021 9:35 PM CDT GLOMERULAR BASEMENT MEMBRANE ANTIBODIES Routine 09/13/2021 9:35 PM CDT C3 COMPLEMENT Routine 09/13/2021 9:35 PM CDT PROTEIN ELECTROPHORESIS, WITH REFLEX, SERUM Routine 09/13/2021 9:35 PM CDT MAGNESIUM Routine 09/13/2021 9:35 PM CDT IMMUNOFIXATION, URINE Routine 09/13/2021 7:39 PM CDT SODIUM, URINE, RANDOM Routine 09/13/2021 7:39 PM CDT POTASSIUM, URINE, RANDOM Routine 09/13/2021 7:39 PM CDT CHLORIDE, URINE, RANDOM Routine 09/13/2021 7:39 PM CDT POCT GLUCOSE DEVICE Routine 09/13/2021 6 :07 PM CDT POCT GLUCOSE DEVICE Routine 09/13/2021 1 :34 PM CDT POCT GLUCOSE DEVICE Routine 09/13/2021 8 :39 AM CDT POCT GLUCOSE DEVICE Routine 09/12/2021 9 :03 PM CDT EGFR Routine 09/12/2021 8:59 PM CDT DIFFERENTIAL AUTO Routine 09/12/2021 8:5 9 PM CDT BASIC METABOLIC PANEL, SERUM Routine 09/12/2021 8:59 PM CDT CBC WITH AUTO DIFFERENTIAL Routine 09/12/2021 8:59 PM CDT MAGNESIUM Routine 09/12/2021 8:59 PM CDT ALBUMIN Routine 09/12/2021 8:59 PM CDT POCT GLUCOSE DEVICE Routine 09/12/2021 4 :32 PM CDT POCT GLUCOSE DEVICE Routine 09/12/2021 1 :12 PM CDT POCT GLUCOSE DEVICE Routine 09/12/2021 8 :02 AM CDT EGFR Routine 09/11/2021 10:35 PM CDT DIFFERENTIAL AUTO Routine 09/11/2021 10: 35 PM CDT CBC WITH AUTO DIFFERENTIAL Routine 09/11/2021 10:35 PM CDT MAGNESIUM Routine 09/11/2021 10:35 PM CDT BASIC METABOLIC PANEL Routine 09/11/2021 10:35 PM CDT POCT GLUCOSE DEVICE Routine 09/11/2021 8 :06 PM CDT POCT GLUCOSE DEVICE Routine 09/11/2021 5 :02 PM CDT POCT GLUCOSE DEVICE Routine 09/11/2021 1 2:58 PM CDT POCT GLUCOSE DEVICE Routine 09/11/2021 1 0:21 AM CDT US ABDOMEN COMPLETE IP Routine 09/11/2021 9 :27 AM CDT POCT GLUCOSE DEVICE Routine 09/10/2021 9 :44 PM CDT EGFR Routine 09/10/2021 9:10 PM CDT DIFFERENTIAL AUTO Routine 09/10/2021 9:1 0 PM CDT PRO B-TYPE NATRIURETIC PEPTIDE Routine 09/10/2021 9:10 PM CDT CBC WITH AUTO DIFFERENTIAL Routine 09/10/2021 9:10 PM CDT MAGNESIUM Routine 09/10/2021 9:10 PM CDT LIPID PANEL Routine 09/10/2021 9:10 PM CDT BASIC METABOLIC PANEL Routine 09/10/2021 9:10 PM CDT POCT GLUCOSE DEVICE Routine 09/10/2021 4 :08 PM CDT CBC WITHOUT DIFFERENTIAL STAT 09/10/2021 11:16 AM CDT TYPE AND SCREEN STAT 09/10/2021 11:16 AM CDT POCT GLUCOSE DEVICE Routine 09/10/2021 1 1:00 AM CDT TRANSTHORACIC ECHO (TTE) COMPLETE W DOPPLER/CF W CONTRAST Routine 09/10/2021 10:28 AM CDT EGFR Routine 09/09/2021 9:49 PM CDT DIFFERENTIAL AUTO Routine 09/09/2021 9:4 9 PM CDT CBC WITH AUTO DIFFERENTIAL Routine 09/09/2021 9:49 PM CDT MAGNESIUM Routine 09/09/2021 9:49 PM CDT BASIC METABOLIC PANEL Routine 09/09/2021 9:49 PM CDT POCT GLUCOSE DEVICE Routine 09/09/2021 9 :24 PM CDT POCT GLUCOSE DEVICE Routine 09/09/2021 6 :10 PM CDT EGFR Routine 09/09/2021 1:56 PM CDT BASIC METABOLIC PANEL Routine 09/09/2021 1:56 PM CDT POCT GLUCOSE DEVICE Routine 09/09/2021 1 2:24 PM CDT POCT GLUCOSE DEVICE Routine 09/09/2021 8 :40 AM CDT DIFFERENTIAL AUTO Routine 09/08/2021 9:5 8 PM CDT CBC WITH AUTO DIFFERENTIAL Routine 09/08/2021 9:58 PM CDT EGFR Routine 09/08/2021 9:50 PM CDT BASIC METABOLIC PANEL, SERUM Routine 09/08/2021 9:50 PM CDT MAGNESIUM Routine 09/08/2021 9:50 PM CDT POCT GLUCOSE DEVICE Routine 09/08/2021 8 :47 PM CDT POCT GLUCOSE DEVICE Routine 09/08/2021 5 :18 PM CDT POCT GLUCOSE DEVICE Routine 09/08/2021 1 2:30 PM CDT POCT GLUCOSE DEVICE Routine 09/08/2021 8 :37 AM CDT B CHECK SAMPLE STAT 09/08/2021 4:08 AM CDT POCT GLUCOSE DEVICE Routine 09/08/2021 4 :07 AM CDT EGFR Routine 09/07/2021 8:41 PM CDT DIFFERENTIAL AUTO Routine 09/07/2021 8:4 1 PM CDT CBC WITH AUTO DIFFERENTIAL Routine 09/07/2021 8:41 PM CDT TYPE AND SCREEN Timed 09/07/2021 8:41 PM CDT MAGNESIUM Routine 09/07/2021 8:41 PM CDT BASIC METABOLIC PANEL Routine 09/07/2021 8:41 PM CDT POCT GLUCOSE DEVICE Routine 09/07/2021 8 :11 PM CDT POCT GLUCOSE DEVICE Routine 09/07/2021 5 :08 PM CDT POCT GLUCOSE DEVICE Routine 09/07/2021 1 2:40 PM CDT EGFR Routine 09/07/2021 11:24 AM CDT BASIC METABOLIC PANEL, SERUM Routine 09/07/2021 11:24 AM CDT FERRITIN Routine 09/07/2021 11:24 AM CDT POCT GLUCOSE DEVICE Routine 09/07/2021 9 :59 AM CDT URINALYSIS AND REFLEX TO MICROSCOPIC AND CULTURE Routine 09/07/2021 5:38 AM CDT UREA NITROGEN, URINE, RANDOM Routine 09/07/2021 5:38 AM CDT SODIUM, URINE, RANDOM Routine 09/07/2021 5:38 AM CDT CREATININE, URINE, RANDOM Routine 09/07/2021 5:38 AM CDT URINALYSIS, MICROSCOPIC ONLY Routine 09/07/2021 5:38 AM CDT URINE CULTURE Routine 09/07/2021 5:38 AM CDT DIFFERENTIAL AUTO Timed 09/07/2021 2:2 5 AM CDT CBC WITH AUTO DIFFERENTIAL Timed 09/07/2021 2:25 AM CDT HEMOGLOBIN A1C Timed 09/07/2021 2:25 AM CDT POCT GLUCOSE DEVICE Routine 09/07/2021 2 :23 AM CDT POCT GLUCOSE DEVICE Routine 09/07/2021 1 2:07 AM CDT POCT GLUCOSE DEVICE Routine 09/06/2021 8 :02 PM CDT TROPONIN I HIGH-SENSITIVITY 2-HOUR Timed 09/06/2021 7:56 PM CDT XR CHEST PA LATERAL 2 VIEWS ED 09/06/2021 5:52 PM CDT ECG 12-LEAD Routine 09/06/2021 5:48 PM CDT TROPONIN I HIGH-SENSITIVITY SERIES (BASELINE, 2HR, 4HR, 6HR) STAT 09/06/2021 5:27 PM CDT POCT GLUCOSE DEVICE Routine 09/06/2021 2 :44 PM CDT documented in this encounter Results * Phosphorus (09/25/2021 5:27 PM CDT) Pathologist [facility] Phosphorus, pl 3.9 2.3 - 4.5 mg/dL NILSA Comment:Testing performed by : [facility], [address] [place] [address]., [id number] Blood 09/25/2021 5:27 PM CDT 09/25/2021 5:48 PM CDT Sharron Thornton MD LAB BLOOD ORDERABLES Final Result Performing Organization Address City/[facility] Co de Phone Number CARLOS [address] [address] * (ABNORMAL) Magnesium (09/25/2021 5:27 PM CDT) Magnesium 2.6(H) 1.4 - 2.5 mg/dL NILSA Comment:Testing performed by : [facility], [address] [place] [address], [place]., [address] Blood 09/25/2021 5:27 PM CDT 09/25/2021 5:48 PM CDT Sharron Thornton MD LAB BLOOD ORDERABLES Final Result Performing Organization Address [facility] Co de Phone Number [address] [place] [address] * POCT glucose (09/18/2021 11:36 AM CDT) Glucose, POC 173 70 - 199 mg/dL [facility] Blood 09/18/2021 11:3 6 AM CDT 09/18/2021 11:36 AM CDT Sharron Thornton MD LAB POCT ORDERABLES - ROSE CE Final Result Performing Organization Address City/[facility] Co de Phone Number [facility] Department [place] [address] * (ABNORMAL) POCT glucose (09/18/2021 7:33 AM CDT) Glucose, POC 238(H) 70 - 199 mg/dL [facility] Blood 09/18/2021 7:33 AM CDT 09/18/2021 7:33 AM CDT Sharron Thornton MD LAB POCT ORDERABLES - ROSE CE Final Result Performing Organization Address City/[facility] Co de Phone Number [facility] [address] * (ABNORMAL) POCT glucose (09/17/2021 9:37 PM CDT) Pathologist [facility] Glucose, POC 225(H) 70 - 199 mg/dL [facility] Blood 09/17/2021 9:37 PM CDT 09/17/2021 9:37 PM CDT Sharron Thornton MD LAB POCT ORDERABLES - ROSE CE Final Result Performing Organization Address [facility] de Phone Number [facility] [place] [address] * (ABNORMAL) eGFR (09/17/2021 8:08 PM CDT) Pathologist [facility] eGFR 22(L) 90 - 130 mL/min/1. 73 m2 [facility] [...] interpretive data was last reviewed 2021. Blood 09/17/2021 8:08 PM CDT 09/17/2021 9:07 PM CDT us Sagar Moreno MD LAB BLOOD ORDERABLES Final Res ult [facility] [place] [address] * (ABNORMAL) Differential, auto (09/17/2021 8:08 PM CDT) Neutrophil abs 5.8 1.7 - 6.5 K/cumm [facility] Imm gran abs 0.1 0.0 - 0.1 K/[facility]umm [facility] Lymphocyte abs 3.4(H) 0.8 - 3.3 K/cumm [facility] Monocyte abs 0.7 0.2 - 0.8 K/cumm [facility] Eosinophil abs 0.3 0.0 - 0.5 K/cumm [facility] Basophil abs 0.1 0.0 - 0.1 K/cumm [facility] Neutrophil pct 56.3 % [facility] Comment: Interpretive Data Percent cell count reference ranges are not reported, since discordance with absolute values may lead to misinterpretation of CBC data. Current Interpretive Data was last revised on 2017. Imm gran pct 0.6 % [facility] Comment: Interpretive Data Percent cell count reference ranges are not reported, since discordance with absolute values may lead to misinterpretation of CBC data. Current Interpretive Data was last revised on 2017. Lymphocyte pct 32.6 % [facility] Comment: Interpretive Data Percent cell count reference ranges are not reported, since discordance with absolute values may lead to misinterpretation of CBC data. Current Interpretive Data was last revised on 2017. Monocyte pct 7.0 % [facility] Comment: Interpretive Data Percent cell count [...] on 2017. Basophil pct 0.6 % [facility] Comment: Interpretive Data Percent cell count reference ranges are not reported, since discordance with absolute values may lead to misinterpretation of CBC data. Current Interpretive Data was last revised on 2017. Blood 09/17/2021 8:08 PM CDT 09/17/2021 9:07 PM CDT Sagar Moreno MD LAB BLOOD ORDERABLES Final Res ult Performing Organization Address [facility] de Phone Number [facility] [place] [address] * Magnesium (09/17/2021 8:08 PM CDT) [facility] Magnesium 2.3 1.4 - 2.5 mg/dL [facility] Blood 09/17/2021 8:08 PM CDT 09/17/2021 9:07 PM CDT Sagar Moreno MD LAB BLOOD ORDERABLES Final Res ult Performing Organization Address [facility] de Phone Number [facility] [place] [address] * (ABNORMAL) Basic metabolic panel (09/17/2021 8:08 PM CDT) Pathologist [facility] Sodium 139 135 - 145 mmol/L [facility] Potassium, pl 4.5 3.3 - 4.9 mmol/L [facility] Chloride 99 97 - 110 mmol/L [facility] CO2 29 22 - 32 mmol/L [facility] Anion gap 11 2 - 15 mmol/L [facility] BUN 71(H) 8 - 25 mg/dL [facility] Creatinine 2.33(H) 0.60 - 1.10 mg/dL [facility] Glucose 210(H) 70 - 199 mg/dL [facility] [...] interpretive data was last revised 2017. Calcium 10.1 8.5 - 10.3 mg/dL [facility] Blood 09/17/2021 8:08 PM CDT 09/17/2021 9:07 PM CDT us Sagar Moreno MD LAB BLOOD ORDERABLES Final Res ult [facility] [place] [address] * (ABNORMAL) CBC with auto differential (09/17/2021 8:08 PM CDT) WBC 10.3(H) 3.8 - 9.9 K/cumm [facility] Hgb 8.7(L) 11.9 - 15.5 g/dL [facility] Hct 28.4(L) 35.6 - 45.5 % [facility] Plt 404(H) 150 - 400 K/cumm [facility] MPV 11.3 9.1 - 12.3 fL [facility] RBC 3.02(L) 3.90 - 5.20 M/cumm [facility] MCV 94.0 81.3 - 96.4 fL [facility] MCH 28.8 27.1 - 33.3 pg [facility] MCHC 30.6(L) 32.3 - 35.7 g/dL [facility] RDW CV 16.3(H) 11.1 - 14.9 % [facility] RDW SD 55.8(H) 35.7 - 48.1 fL [facility] NRBC abs 0.00 0.00 - 0.01 K/cumm [facility] Blood 09/17/2021 8:08 PM CDT 09/17/2021 9:07 PM CDT us Sagar Moreno MD LAB BLOOD ORDERABLES Final Res ult Performing Organization Address [facility]/ZIP Co de Phone Number [facility] [employer] [address] * (ABNORMAL) POCT glucose (09/17/2021 5:26 PM CDT) Glucose, POC 203(H) 70 - 199 mg/dL [facility] Blood 09/17/2021 5:26 PM CDT 09/17/2021 5:26 PM CDT us Sharron hTornton MD LAB POCT ORDERABLES - ROSE CE Final Result Performing Organization Address [facility] Co de Phone Number [facility] [place] [address] * POCT glucose (09/17/2021 12:18 PM CDT) Glucose, POC 198 70 - 199 mg/dL [facility] Blood 09/17/2021 12:1 8 PM CDT 09/17/2021 12:18 PM CDT us Sharron Thornton MD LAB POCT ORDERABLES - ROSE CE Final Result Performing Organization Address [facility] Co de Phone Number [facility] [place] [address] * POCT glucose (09/17/2021 7:43 AM CDT) Glucose, POC 163 70 - 199 mg/dL [facility] Blood 09/17/2021 7:43 AM CDT 09/17/2021 7:43 AM CDT Sharron Thornton MD LAB POCT ORDERABLES - ROSE CE Final Result Performing Organization Address [facility] Co de Phone Number [facility] Department [place] [address] * (ABNORMAL) POCT glucose (09/16/2021 8:15 PM CDT) Pathologist [facility] Glucose, POC 288(H) 70 - 199 mg/dL [facility] Blood 09/16/2021 8:15 PM CDT 09/16/2021 8:15 PM CDT Maddi Aaron MD LAB POCT ORDERABLES - DEVIC E Final Result Performing Organization Address [facility] Co de Phone Number [facility] [place] [address] * (ABNORMAL) eGFR (09/16/2021 8:10 PM CDT) Pathologist [facility] eGFR 22(L) 90 - 130 mL/min/1. 73 m2 [facility] [...] interpretive data was last reviewed 2021. Blood 09/16/2021 8:10 PM CDT 09/16/2021 8:48 PM CDT us Sagar Moreno MD LAB BLOOD ORDERABLES Final Res ult [facility] [place] [address] * (ABNORMAL) Differential, auto (09/16/2021 8:10 PM CDT) Neutrophil abs 5.6 1.7 - 6.5 K/cumm [facility] Imm gran abs 0.1 0.0 - 0.1 K/cumm [facility] Lymphocyte abs 3.4(H) 0.8 - 3.3 K/cumm [facility] Monocyte abs 0.7 0.2 - 0.8 K/cumm [facility] Eosinophil abs 0.3 0.0 - 0.5 K/cumm [facility] Basophil abs 0.1 0.0 - 0.1 K/cumm [facility] Neutrophil pct 55.7 % [facility] Comment: Interpretive Data Percent cell count reference ranges are not reported, since discordance with absolute values may lead to misinterpretation of CBC data. Current Interpretive Data was last revised on 2017. Imm gran pct 0.7 % [facility] Comment: Interpretive Data Percent cell count reference ranges are not reported, since discordance with absolute values may lead to misinterpretation of CBC data. Current Interpretive Data was last revised on 2017. Lymphocyte pct 33.3 % [facility] Comment: Interpretive Data Percent cell count reference ranges are not reported, since discordance with absolute values may lead to misinterpretation of CBC data. Current Interpretive Data was last revised on 2017. Monocyte pct 7.1 % [facility] Comment: Interpretive Data Percent cell count reference ranges are not reported, since discordance with absolute values may lead to misinterpretation of CBC data. Current Interpretive Data was last revised on 2017. Eosinophil pct 2.6 % [facility] Comment: Interpretive Data Percent cell count reference ranges are not reported, since discordance with absolute values may lead to misinterpretation of CBC data. Current Interpretive Data was last revised on 2017. Basophil pct 0.6 % [facility] Comment: Interpretive Data Percent cell count reference ranges are not reported, since discordance with absolute values may lead to misinterpretation of CBC data. Current Interpretive Data was last revised on 2017. Blood 09/16/2021 8:10 PM CDT 09/16/2021 8:48 PM CDT us Sagar Moreno MD LAB BLOOD ORDERABLES Final Res ult [facility] [place] [address] * Hepatitis B surface antibody (immune status) (09/16/2021 8:10 PM CDT) HBsAb (immune status) Nonreactive [facility] Comment: Interpretive Data Nonreactive: This result is [...] data was last revised on 19. Blood 09/16/2021 8:10 PM CDT 09/16/2021 8:48 PM CDT us Maddi Aaron MD LAB MICROBIOLOGY - GENERAL ORDERABLES Final Result Performing Organization Address City/[facility] Co de Phone Number [facility] [place] [address] * Hepatitis B core antibody, total (09/16/2021 8:10 PM CDT) Hep B core IgG/IgM Nonreactive Nonreactive [facility] Blood 09/16/2021 8:10 PM CDT 09/16/2021 8:48 PM CDT us Maddi Aaron MD LAB MICROBIOLOGY - GENERAL ORDERABLES Edited Result - Final Performing Organization Address [facility] de Phone Number [facility] Department [place] [address] * Hepatitis B Surface Antigen (09/16/2021 8:10 PM CDT) HepBsAg Nonreactive Nonreactive [facility] Blood 09/16/2021 8:10 PM CDT 09/16/2021 8:48 PM CDT us Maddi Aaron MD LAB MICROBIOLOGY - GENERAL ORDERABLES Edited Result - Final Performing Organization Address [facility] Co de Phone Number [facility] Department [place] [address] * Magnesium (09/16/2021 8:10 PM CDT) Magnesium 2.3 1.4 - 2.5 mg/dL [facility] Blood 09/16/2021 8:10 PM CDT 09/16/2021 8:48 PM CDT us Sagar Moreno MD LAB BLOOD ORDERABLES Final Res ult Performing Organization Address City/[facility] Co de Phone Number [facility] Department [place] [address] * (ABNORMAL) Basic metabolic panel (09/16/2021 8:10 PM CDT) Pathologist [facility] Sodium 142 135 - 145 mmol/L [facility] Potassium, pl 5.0(H) 3.3 - 4.9 mmol/L [facility] Chloride 102 97 - 110 mmol/L [facility] CO2 30 22 - 32 mmol/L [facility] Anion gap 10 2 - 15 mmol/L [facility] BUN 71(H) 8 - 25 mg/dL [facility] Creatinine 2.34(H) 0.60 - 1.10 mg/dL [facility] Glucose 266(H) 70 - 199 mg/dL [facility] interpretive data was last revised 2017. Calcium 9.8 8.5 - 10.3 mg/dL [facility] Blood 09/16/2021 8:10 PM CDT 09/16/2021 8:48 PM CDT Sagar Moreno MD LAB BLOOD ORDERABLES Final Res ult [facility] Department [place] [address] * (ABNORMAL) CBC with auto differential (09/16/2021 8:10 PM CDT) Pathologist [facility] WBC 10.1(H) 3.8 - 9.9 K/cumm [facility] Hgb 8.0(L) 11.9 - 15.5 g/dL [facility] Hct 26.9(L) 35.6 - 45.5 % [facility] Plt 374 150 - 400 K/cumm [facility] MPV 11.5 9.1 - 12.3 fL [facility] RBC 2.82(L) 3.90 - 5.20 M/cumm [facility] MCV 95.4 81.3 - 96.4 fL [facility] MCH 28.4 27.1 - 33.3 pg [facility] MCHC 29.7(L) 32.3 - 35.7 g/dL [facility] RDW CV 16.1(H) 11.1 - 14.9 % [facility] RDW SD 54.9(H) 35.7 - 48.1 fL [facility] NRBC abs 0.00 0.00 - 0.01 K/cumm [facility] Blood 09/16/2021 8:10 PM CDT 09/16/2021 8:48 PM CDT us Sagar Moreno MD LAB BLOOD ORDERABLES Final Res ult [facility] [place] [address] * (ABNORMAL) POCT glucose (09/16/2021 5:17 PM CDT) Glucose, POC 216(H) 70 - 199 mg/dL [facility] Blood 09/16/2021 5:17 PM CDT 09/16/2021 5:17 PM CDT us Maddi Aaron MD LAB POCT ORDERABLES - DEVIC E Final Result [facility] [place] [address] * (ABNORMAL) POCT glucose (09/16/2021 12:24 PM CDT) Glucose, POC 212(H) 70 - 199 mg/dL [facility] Blood 09/16/2021 12:2 4 PM CDT 09/16/2021 12:24 PM CDT Maddi Aaron MD LAB POCT ORDERABLES - DEVIC E Final Result Performing Organization Address [facility] Co de Phone Number [facility] [place] [address] * POCT glucose (09/16/2021 9:15 AM CDT) Glucose, POC 188 70 - 199 mg/dL [facility] Blood 09/16/2021 9:15 AM CDT 09/16/2021 9:15 AM CDT Maddi Aaron MD LAB POCT ORDERABLES - DEVIC E Final Result Performing Organization Address [facility] Co de Phone Number [facility] [address] * (ABNORMAL) POCT glucose (09/15/2021 10:16 PM CDT) Glucose, POC 206(H) 70 - 199 mg/dL [facility] Blood 09/15/2021 10:1 6 PM CDT 09/15/2021 10:16 PM CDT Maddi Aaron MD LAB POCT ORDERABLES - DEVIC E Final Result Performing Organization Address City/[facility] Co de Phone Number [facility] [address] * (ABNORMAL) eGFR (09/15/2021 10:10 PM CDT) eGFR 22(L) 90 - 130 mL/min/1. 73 m2 [facility] [...] interpretive data was last reviewed 2021. Blood 09/15/2021 10:1 0 PM CDT 09/15/2021 11:16 PM CDT us Sagar Moreno MD LAB BLOOD ORDERABLES Final Res ult Performing Organization Address City/State/[facility] Co de Phone Number [facility] Department [place] [address] * (ABNORMAL) Differential, auto (09/15/2021 10:10 PM CDT) Neutrophil abs 5.9 1.7 - 6.5 K/cumm [facility] Imm gran abs 0.1 0.0 - 0.1 K/cumm [facility] Lymphocyte abs 3.2 0.8 - 3.3 K/cumm [facility] Monocyte abs 0.9(H) 0.2 - 0.8 K/cumm [facility] Eosinophil abs 0.2 0.0 - 0.5 K/cumm [facility] Basophil abs 0.0 0.0 - 0.1 K/cumm [facility] Neutrophil pct 57.6 % [facility] Comment: Interpretive Data Percent cell count reference ranges are not reported, since discordance with absolute values may lead to misinterpretation of CBC data. Current Interpretive Data was last revised on 2017. Imm gran pct 0.5 % [facility] Comment: Interpretive Data Percent cell count reference ranges are not reported, since discordance with absolute values may lead to misinterpretation of CBC data. Current Interpretive Data was last revised on 2017. Lymphocyte pct 30.7 % [facility] Comment: Interpretive Data Percent cell count reference ranges are not reported, since discordance with absolute values may lead to misinterpretation of CBC data. Current Interpretive Data was last revised on 2017. Monocyte pct 8.7 % [facility] Comment: Interpretive Data Percent cell count reference ranges are not reported, since discordance with absolute values may lead to misinterpretation of CBC data. Current Interpretive Data was last revised on 2017. Eosinophil pct 2.2 % [facility] Comment: Interpretive Data Percent cell count reference ranges are not reported, since discordance with absolute values may lead to misinterpretation of CBC data. Current Interpretive Data was last revised on 2017. Basophil pct 0.3 % [facility] Comment: Interpretive Data Percent cell count reference ranges are not reported, since discordance with absolute values may lead to misinterpretation of CBC data. Current Interpretive Data was last revised on 2017. Blood 09/15/2021 10:1 0 PM CDT 09/15/2021 11:17 PM CDT us Sagar Moreno MD LAB BLOOD ORDERABLES Final Res ult [facility] Department [place] [address] * Magnesium (09/15/2021 10:10 PM CDT) Magnesium 2.1 1.4 - 2.5 mg/dL [facility] Blood 09/15/2021 10:1 0 PM CDT 09/15/2021 11:16 PM CDT Sagar Moreno MD LAB BLOOD ORDERABLES Final Res ult Performing Organization Address City/[facility]/ZIP Co de Phone Number [facility] [place] [address] * (ABNORMAL) Basic metabolic panel (09/15/2021 10:10 PM CDT) Pathologist [facility] Sodium 142 135 - 145 mmol/L [facility] Potassium, pl 4.8 3.3 - 4.9 mmol/L [facility] Chloride 102 97 - 110 mmol/L [facility] CO2 29 22 - 32 mmol/L [facility] Anion gap 11 2 - 15 mmol/L [facility] BUN 65(H) 8 - 25 mg/dL [facility] Creatinine 2.34(H) 0.60 - 1.10 mg/dL [facility] Glucose 210(H) 70 - 199 mg/dL [facility] [...] interpretive data was last revised 2017. Calcium 9.4 8.5 - 10.3 mg/dL [facility] Blood 09/15/2021 10:1 0 PM CDT 09/15/2021 11:16 PM CDT Sagar Moreno MD LAB BLOOD ORDERABLES Final Res ult Performing Organization Address [facility]/ZIP Co de Phone Number [facility] Department [place] [address] * (ABNORMAL) CBC with auto differential (09/15/2021 10:10 PM CDT) Pathologist [facility] WBC 10.3(H) 3.8 - 9.9 K/cumm [facility] Hgb 7.4(L) 11.9 - 15.5 g/dL [facility] Hct 23.3(L) 35.6 - 45.5 % [facility] Plt 320 150 - 400 K/cumm [facility] MPV 11.3 9.1 - 12.3 fL [facility] RBC 2.49(L) 3.90 - 5.20 M/cumm [facility] MCV 93.6 81.3 - 96.4 fL [facility] MCH 29.7 27.1 - 33.3 pg [facility] MCHC 31.8(L) 32.3 - 35.7 g/dL [facility] RDW CV 16.2(H) 11.1 - 14.9 % [facility] RDW SD 55.0(H) 35.7 - 48.1 fL [facility] NRBC abs 0.00 0.00 - 0.01 K/cumm [facility] Blood 09/15/2021 10:1 0 PM CDT 09/15/2021 11:17 PM CDT us Sagar Moreno MD LAB BLOOD ORDERABLES Final Res ult [facility] Department [place] [address] * POCT glucose (09/15/2021 5:07 PM CDT) Glucose, POC 199 70 - 199 mg/dL [facility] Blood 09/15/2021 5:07 PM CDT 09/15/2021 5:07 PM CDT us Maddi Aaron MD LAB POCT ORDERABLES - DEVIC E Final Result [facility] [address] * (ABNORMAL) POCT glucose (09/15/2021 11:45 AM CDT) Glucose, POC 221(H) 70 - 199 mg/dL [facility] Blood 09/15/2021 11:4 5 AM CDT 09/15/2021 11:45 AM CDT us Maddi Aaron MD LAB POCT ORDERABLES - DEVIC E Final Result Performing Organization Address [facility] de Phone Number [facility] [address] * POCT glucose (09/15/2021 8:03 AM CDT) [facility] Glucose, POC 164 70 - 199 mg/dL [facility] Blood 09/15/2021 8:03 AM CDT 09/15/2021 8:03 AM CDT us Maddi Aaron MD LAB POCT ORDERABLES - DEVIC E Final Result Performing Organization Address [facility] de Phone Number [facility] [place] [address] * (ABNORMAL) eGFR (09/14/2021 11:31 PM CDT) eGFR 22(L) 90 - 130 mL/min/1. 73 m2 [facility] [...] interpretive data was last reviewed 2021. Blood 09/14/2021 11:3 1 PM CDT 09/15/2021 12:28 AM CDT Sagar Moreno MD LAB BLOOD ORDERABLES Final Res ult [facility] [place] [address] * Differential, auto (09/14/2021 11:31 PM CDT) Neutrophil abs 5.2 1.7 - 6.5 K/cumm [facility] Imm gran abs 0.1 0.0 - 0.1 K/cumm [facility] Lymphocyte abs 3.3 0.8 - 3.3 K/cumm [facility] Monocyte abs 0.8 0.2 - 0.8 K/cumm [facility] Eosinophil abs 0.2 0.0 - 0.5 K/cumm [facility] Basophil abs 0.0 0.0 - 0.1 K/cumm [facility] Neutrophil pct 54.3 % [facility] Comment: Interpretive Data Percent cell count reference ranges are not reported, since discordance with absolute values may lead to misinterpretation of CBC data. Current Interpretive Data was last revised on 2017. Imm gran pct 0.5 % [facility] Comment: Interpretive Data Percent cell count reference ranges are not reported, since discordance with absolute values may lead to misinterpretation of CBC data. Current Interpretive Data was last revised on 2017. Lymphocyte pct 34.2 % [facility] Comment: Interpretive Data Percent cell count reference ranges are not reported, since discordance with absolute values may lead to misinterpretation of CBC data. Current Interpretive Data was last revised on 2017. Monocyte pct 8.6 % [facility] Comment: Interpretive Data Percent cell count reference ranges are not reported, since discordance with absolute values may lead to misinterpretation of CBC data. Current Interpretive Data was last revised on 2017. Eosinophil pct 2.1 % [facility] Comment: Interpretive Data Percent cell count reference ranges are not reported, since discordance with absolute values may lead to misinterpretation of CBC data. Current Interpretive Data was last revised on 2017. Basophil pct 0.3 % [facility] Comment: Interpretive Data Percent cell count reference ranges are not reported, since discordance with absolute values may lead to misinterpretation of CBC data. Current Interpretive Data was last revised on 2017. Blood 09/14/2021 11:3 1 PM CDT 09/15/2021 12:28 AM CDT Sagar Moreno MD LAB BLOOD ORDERABLES Final Res ult Performing Organization Address City/[facility]/ZIP Co de Phone Number [facility] [place] [address] * Magnesium (09/14/2021 11:31 PM CDT) Magnesium 2.1 1.4 - 2.5 mg/dL [facility] Blood 09/14/2021 11:3 1 PM CDT 09/15/2021 12:28 AM CDT us Sagar Moreno MD LAB BLOOD ORDERABLES Final Res ult Performing Organization Address City/[facility] Co de Phone Number [facility] [place] [address] * (ABNORMAL) Basic metabolic panel (09/14/2021 11:31 PM CDT) Pathologist [facility] Sodium 145 135 - 145 mmol/L [facility] Potassium, pl 4.5 3.3 - 4.9 mmol/L [facility] Chloride 104 97 - 110 mmol/L [facility] CO2 28 22 - 32 mmol/L [facility] Anion gap 13 2 - 15 mmol/L [facility] BUN 59(H) 8 - 25 mg/dL [facility] Creatinine 2.33(H) 0.60 - 1.10 mg/dL [facility] Glucose 155 70 - 199 mg/dL [facility] interpretive data was last revised 2017. Calcium 9.4 8.5 - 10.3 mg/dL [facility] Blood 09/14/2021 11:3 1 PM CDT 09/15/2021 12:28 AM CDT Sagar Moreno MD LAB BLOOD ORDERABLES Final Res ult [facility] [place] [address] * (ABNORMAL) CBC with auto differential (09/14/2021 11:31 PM CDT) Pathologist [facility] WBC 9.5 3.8 - 9.9 K/cumm [facility] Hgb 7.0(L) 11.9 - 15.5 g/dL [facility] Hct 22.7(L) 35.6 - 45.5 % [facility] Plt 316 150 - 400 K/cumm [facility] MPV 11.5 9.1 - 12.3 fL [facility] RBC 2.41(L) 3.90 - 5.20 M/cumm [facility] MCV 94.2 81.3 - 96.4 fL [facility] MCH 29.0 27.1 - 33.3 pg [facility] MCHC 30.8(L) 32.3 - 35.7 g/dL [facility] RDW CV 16.0(H) 11.1 - 14.9 % [facility] RDW SD 55.1(H) 35.7 - 48.1 fL [facility] NRBC abs 0.03(H) 0.00 - 0.01 K/cumm [facility] Blood 09/14/2021 11:3 1 PM CDT 09/15/2021 12:28 AM CDT us Sagar Moreno MD LAB BLOOD ORDERABLES Final Res ult [facility] [place] [address] * POCT glucose (09/14/2021 11:05 PM CDT) Glucose, POC 165 70 - 199 mg/dL [facility] Blood 09/14/2021 11:0 5 PM CDT 09/14/2021 11:05 PM CDT us Maddi Aaron MD LAB POCT ORDERABLES - DEVIC E Final Result [facility] [place] [address] * POCT glucose (09/14/2021 5:15 PM CDT) Glucose, POC 199 70 - 199 mg/dL [facility] Blood 09/14/2021 5:15 PM CDT 09/14/2021 5:15 PM CDT Maddi Aaron MD LAB POCT ORDERABLES - DEVIC E Final Result Performing Organization Address [facility] de Phone Number [facility] [place] [address] * (ABNORMAL) Albumin Creatinine Ratio, Urine (09/14/2021 11:49 AM CDT) Albumin Ur 314.0 mg/L [facility] Comment: Interpretive Data No reference range established. Current interpretive data was last revised 2018. Creatinine Ur 62.8 mg/dL [facility] Comment: Interpretive Data No reference range established. Current interpretive data was last revised 2018. Albumin Creatinine Ratio, Ur 500(H) 1 - 29 mg/g [facility] Urine 09/14/2021 11:4 9 AM CDT 09/14/2021 12:32 PM CDT us Maddi Aaron MD LAB URINE ORDERABLES Final Result Performing Organization Address [facility] de Phone [facility] [place] [address] * (ABNORMAL) Protein / creatinine ratio, urine, random (09/14/2021 11:49 AM CDT) Protein, ur, quant 48.8 mg/dL [facility] Comment: Interpretive Data No reference range established. Current interpretive data was last revised 2018. Creatinine Ur 62.8 mg/dL [facility] Comment: Interpretive Data No reference range established. Current interpretive data was last revised 2018. Protein/creatinin e ratio 777.1(H) 0.0 - 180.0 mg/g CR [facility] Urine 09/14/2021 11:4 9 AM CDT 09/14/2021 12:32 PM CDT us Maddi Aaron MD LAB URINE ORDERABLES Final Result Performing Organization Address City/[facility]/ZIP Co de Phone Number [facility] [place] [address] * POCT glucose (09/14/2021 11:36 AM CDT) Glucose, POC 189 70 - 199 mg/dL [facility] Blood 09/14/2021 11:3 6 AM CDT 09/14/2021 11:36 AM CDT us Maddi Aaron MD LAB POCT ORDERABLES - DEVIC E Final Result Performing Organization Address [facility] Co de Phone Number [facility] [address] * POCT glucose (09/14/2021 9:26 AM CDT) Glucose, POC 166 70 - 199 mg/dL [facility] Blood 09/14/2021 9:26 AM CDT 09/14/2021 9:26 AM CDT us Maddi Aaron MD LAB POCT ORDERABLES - DEVIC E Final Result Performing Organization Address City/[facility] Co de Phone Number [facility] [place] [address] * POCT glucose (09/13/2021 9:46 PM CDT) Glucose, POC 165 70 - 199 mg/dL [facility] Blood 09/13/2021 9:46 PM CDT 09/13/2021 9:46 PM CDT us Maddi Aaron MD LAB POCT ORDERABLES - DEVIC E Final Result Performing Organization Address City/[facility] Co de Phone Number [facility] [place] [address] * Immunotyping, serum (09/13/2021 9:35 PM CDT) Immunofixation Please see comment [facility] Comment: NO DEFINITE MONOCLONAL PEAK DETECTED. ??SUGGEST RETESTING IN 6-12 MONTHS Reviewed and signed out by [place]o [place] 09/18/21 Blood 09/13/2021 9:35 PM CDT 09/13/2021 10:17 PM CDT Narrative [facility] - 09/19/2021 8:50 AM CDT Reflex Immunotyping, Ser us Maddi Aaron MD LAB BLOOD ORDERABLES Final Result Performing Organization Address [facility] de Phone Number [facility] Department [place] [address] * (ABNORMAL) eGFR (09/13/2021 9:35 PM CDT) Pathologist [facility] eGFR 27(L) 90 - 130 mL/min/1. 73 m2 [facility] [...] interpretive data was last reviewed 2021. Blood 09/13/2021 9:35 PM CDT 09/13/2021 10:50 PM CDT us Maddi Aaron MD LAB BLOOD ORDERABLES Final Result [facility] [place] [address] * (ABNORMAL) Basic metabolic panel, serum (09/13/2021 9:35 PM CDT) Sodium 142 135 - 145 mmol/L [facility] Potassium, sr 4.7 3.6 - 5.2 mmol/L [facility] Comment:Hemolyzed; Potassium value may be falsely elevated by as much as 0.3-0.5 mmol/L. Suggest redraw and reanalysis. Chloride 103 97 - 110 mmol/L [facility] CO2 27 22 - 32 mmol/L [facility] Anion gap 12 2 - 15 mmol/L [facility] BUN 52(H) 8 - 25 mg/dL [facility] Creatinine 1.95(H) 0.60 - 1.10 mg/dL [facility] Glucose 169 70 - 199 mg/dL [facility] [...] interpretive data was last revised 2017. Calcium 9.7 8.5 - 10.3 mg/dL [facility] Blood 09/13/2021 9:35 PM CDT 09/13/2021 10:42 PM CDT us Maddi Aaron MD LAB BLOOD ORDERABLES Final Result [facility] [place] [address] * Differential, auto (09/13/2021 9:35 PM CDT) Neutrophil abs 5.6 1.7 - 6.5 K/cumm [facility] Imm gran abs 0.1 0.0 - 0.1 K/cumm [facility] Lymphocyte abs 3.0 0.8 - 3.3 K/cumm [facility] Monocyte abs 0.7 0.2 - 0.8 K/cumm [facility] Eosinophil abs 0.3 0.0 - 0.5 K/cumm [facility] Basophil abs 0.0 0.0 - 0.1 K/cumm [facility] Neutrophil pct 58.0 % [facility] Comment: Interpretive [...] was last revised on 2017. Lymphocyte pct 31.2 % [facility] Comment: Interpretive Data Percent cell count reference ranges are not reported, since discordance with absolute values may lead to misinterpretation of CBC data. Current Interpretive Data was last revised on 2017. Monocyte pct 7.3 % [facility] Comment: Interpretive Data Percent cell count reference ranges are not reported, since discordance with absolute values may lead to misinterpretation of CBC data. Current Interpretive Data was last revised on 2017. Eosinophil pct 2.7 % [facility] Comment: Interpretive Data Percent cell count reference ranges are not reported, since discordance with absolute values may lead to misinterpretation of CBC data. Current Interpretive Data was last revised on 2017. Basophil pct 0.3 % [facility] Comment: Interpretive Data Percent cell count reference ranges are not reported, since discordance with absolute values may lead to misinterpretation of CBC data. Current Interpretive Data was last revised on 2017. Blood 09/13/2021 9:35 PM CDT 09/13/2021 10:19 PM CDT Sagar Moreno MD LAB BLOOD ORDERABLES Final Res ult Performing Organization Address City/[facility]/ZIP Co de Phone Number [facility] [place] [address] * Magnesium (09/13/2021 9:35 PM CDT) [facility] Magnesium 2.1 1.4 - 2.5 mg/dL [facility] Blood 09/13/2021 9:35 PM CDT 09/13/2021 10:42 PM CDT Sagar Moreno MD LAB BLOOD ORDERABLES Final Res ult Performing Organization Address [facility]/ZIP Co de Phone Number [facility] [place] [address] * (ABNORMAL) CBC with auto differential (09/13/2021 9:35 PM CDT) [facility] WBC 9.7 3.8 - 9.9 K/cumm [facility] Hgb 7.5(L) 11.9 - 15.5 g/dL [facility] Hct 24.7(L) 35.6 - 45.5 % [facility] Plt 300 150 - 400 K/cumm [facility] MPV 11.7 9.1 - 12.3 fL [facility] RBC 2.63(L) 3.90 - 5.20 M/cumm [facility] MCV 93.9 81.3 - 96.4 fL [facility] MCH 28.5 27.1 - 33.3 pg [facility] MCHC 30.4(L) 32.3 - 35.7 g/dL [facility] RDW CV 16.2(H) 11.1 - 14.9 % [facility] RDW SD 54.8(H) 35.7 - 48.1 fL [facility] NRBC abs 0.00 0.00 - 0.01 K/cumm [facility] Blood 09/13/2021 9:35 PM CDT 09/13/2021 10:19 PM CDT us Sagar Moreno MD LAB BLOOD ORDERABLES Final Res ult Performing Organization Address [facility] Co de Phone Number [facility] [place] [address] * HIV 1/2 Antibody plus p24 Antigen Blood (09/13/2021 9:35 PM CDT) [facility] HIV 1/2 ab + p24 ag Nonreactive Nonreactive [facility] Comment: Nonreactive for HIV-1 antigen and HIV-1/HIV-2 antibodies. No laboratory evidence of HIV infection. If acute HIV infection is suspected, consider testing for HIV-1 RNA. Blood 09/13/2021 9:35 PM CDT 09/13/2021 10:17 PM CDT us Maddi Aaron MD LAB MICROBIOLOGY - GENERAL ORDERABLES Final Result Performing Organization Address City/[facility]/ZIP Co de Phone Number [facility] [place] [address] * (ABNORMAL) Immunoglobulin free light chains (09/13/2021 9:35 PM CDT) [facility] [place]/Lambda ratio 2.02(H) 0.26 - 1.65 [facility] [place] free light chain 7.65(H) 0.33 - 1.94 mg/dL [facility] Lambda free light chain 3.79(H) 0.57 - 2.63 mg/dL [facility] Blood 09/13/2021 9:35 PM CDT 09/13/2021 10:17 PM CDT Maddi Aaron MD LAB BLOOD ORDERABLES Final Result [facility] [place] [address] * (ABNORMAL) Protein Electrophoresis, With Reflex, Serum (09/13/2021 9:35 PM CDT) Pathologist [facility] Protein, sr 6.8 6.2 - 8.2 g/dL [facility] Albumin 3.1(L) 3.2 - 5.0 g/dL [facility] Alpha-1 globulin 0.4 0.2 - 0.4 g/dL [facility] Alpha-2 globulin 1.0 0.5 - 1.0 g/dL [facility] Beta-1 globulin 0.4 0.3 - 0.6 g/dL [facility] Beta-2 globulin 0.7(H) 0.2 - 0.6 g/dL [facility] Gamma globulin 1.1 0.5 - 1.7 g/dL [facility] Immunotyping See Immunotyping Results [facility] SPEP interp Please see comment [facility] Comment: Possible abnormal restricted peak in beta 2 region Possible abnormal restricted peak in gamma region See immunotyping for further information Reviewed and signed out by [place] 09/18/21 Blood 09/13/2021 9:35 PM CDT 09/13/2021 10:17 PM CDT us Maddi Aaron MD LAB BLOOD ORDERABLES Final Result [facility] [place] [address] * Cryoglobulin, serum only (09/13/2021 9:35 PM CDT) Pathologist [facility] Cryoglobulin, quant Negative Negative [facility] Comment: This test is negative at 24 hours. All samples are held and reviewed again at 7 days. If delayed precipitation occurs after 7 days, Immunofixation will be performed and an additional report will follow. Test Performed by: [facility] [address], [place] [address] [employer] Counselor: Mane Patel M.D. Ph.D.; CLIA# [id number] Blood 09/13/2021 9:35 PM CDT 09/13/2021 9:50 PM CDT Maddi Aaron MD LAB BLOOD ORDERABLES Final Result Performing Organization Address [facility] Co de Phone Number [facility] [place] [address] * Glomerular basement membrane antibodies (09/13/2021 9:35 PM CDT) [facility] GBM ab, IgG <0.2 <=0.9 Ab Index [facility] Comment: Interpretive Data Negative: ??<1 Ab Index Positive: > or = 1 Ab Index Current interpretive data was last revised on 2016. Blood 09/13/2021 9:35 PM CDT 09/13/2021 10:17 PM CDT Maddi Aaron MD LAB BLOOD ORDERABLES Final Result Performing Organization Address City/State/[facility] Co de Phone Number [facility] [place] [address] * Anti-Neutrophilic Cytoplasmic Antibody (ANCA) with Reflex to MPO and PR3 Abs (09/13/2021 9:35 PM CDT) [facility] ANCA Negative [facility] Blood 09/13/2021 9:35 PM CDT 09/13/2021 10:17 PM CDT Maddi Aaron MD LAB BLOOD ORDERABLES Final Result [facility] [address] * ED Reflex to Quantitative and dsDNA (09/13/2021 9:35 PM CDT) Pathologist [facility] ED Negative [facility] Comment: Interpretive Data Normal range for ED Qualitative Antibody = Negative. 1. ED is performed using indirect immunofluorescence against HEp-2 cells 2. ED titers are performed on all positive qualitative results. 3. A significantly positive ED result is defined as a positive nuclear fluorescence at a titer of 1:80 or greater. 4. 15% of normal people above age 65 have significantly positive ED results. ??5% or less of normal people age 65 or under have significantly positive ED results. Current interpretive data was last revised on 2020. Blood 09/13/2021 9:35 PM CDT 09/13/2021 10:17 PM CDT Maddi Aaron MD LAB BLOOD ORDERABLES Final Result Performing Organization Address City/[facility] [place] [place] [address] * C4 complement (09/13/2021 9:35 PM CDT) [facility] Complement C4 34.7 10.0 - 40.0 mg/dL [facility] Blood 09/13/2021 9:35 PM CDT 09/13/2021 10:17 PM CDT Maddi Aaron MD LAB BLOOD ORDERABLES Final Result Performing Organization Address City/[facility] Co de Phone Number [facility] [place] [address] * C3 complement (09/13/2021 9:35 PM CDT) Complement C3 162.0 90.0 - 180.0 mg/dL [facility] Blood 09/13/2021 9:35 PM CDT 09/13/2021 10:17 PM CDT Maddi Aaron MD LAB BLOOD ORDERABLES Final Result Performing Organization Address City/[facility] Co de Phone Number [facility] [place] [address] * Chloride, urine, random (09/13/2021 7:39 PM CDT) Chloride, ur 69 mmol/L [facility] Comment: Interpretive Data No reference range established. Current interpretive data was last revised 2018. Urine (Urine, Clean Catch) 09/13/2021 7:39 PM CDT 09/13/2021 8:30 PM CDT Maddi Aaron MD LAB URINE ORDERABLES Final Result Performing Organization Address [facility] [place] [place] [address] * Potassium, urine, random (09/13/2021 7:39 PM CDT) Potassium conc, ur 20.8 mmol/L [facility] Comment: Interpretive Data No reference range established. Current interpretive data was last revised 2018. Urine (Urine, Clean Catch) 09/13/2021 7:39 PM CDT 09/13/2021 8:30 PM CDT Maddi Aaron MD LAB URINE ORDERABLES Final Result Performing Organization Address City/[facility] Co de Phone Number [facility] [place] [address] * Sodium, urine, random (09/13/2021 7:39 PM CDT) Sodium, ur 82 mmol/L [facility] Comment: Interpretive Data No reference range established. Current interpretive data was last revised 2018. Urine (Urine, Clean Catch) 09/13/2021 7:39 PM CDT 09/13/2021 8:30 PM CDT Maddi Aaron MD LAB URINE ORDERABLES Final Result Performing Organization Address City/[facility] Co de Phone Number [facility] [address] * Immunofixation, urine (09/13/2021 7:39 PM CDT) Pathologist [facility] Immunofixation, Ur Please see comment [facility] Comment: NO PARAPROTEIN DETECTED Reviewed and signed by [place], PhD 09/17/21 Urine 09/13/2021 7:39 PM CDT 09/13/2021 8:30 PM CDT Maddi Aaron MD LAB URINE ORDERABLES Final Result Performing Organization Address [facility] Co de Phone Number [facility] [address] * POCT glucose (09/13/2021 6:07 PM CDT) Glucose, POC 159 70 - 199 mg/dL [facility] Blood 09/13/2021 6:07 PM CDT 09/13/2021 6:07 PM CDT Maddi Aaron MD LAB POCT ORDERABLES - DEVIC E Final Result Performing Organization Address City/[facility]/ZIP Co de Phone Number [facility] [address] * POCT glucose (09/13/2021 1:34 PM CDT) Glucose, POC 190 70 - 199 mg/dL [facility] Blood 09/13/2021 1:34 PM CDT 09/13/2021 1:34 PM CDT Maddi Aaron MD LAB POCT ORDERABLES - DEVIC E Final Result Performing Organization Address City/[facility] Co de Phone Number [facility] [place] [address] * POCT glucose (09/13/2021 8:39 AM CDT) [facility] Signature Glucose, POC 133 70 - 199 mg/dL [facility] Blood 09/13/2021 8:39 AM CDT 09/13/2021 8:39 AM CDT us Maddi Aaron MD LAB POCT ORDERABLES - DEVIC E Final Result Performing Organization Address City/[facility] Co de Phone Number [facility] [place] [address] * (ABNORMAL) POCT glucose (09/12/2021 9:03 PM CDT) [facility] Signature Glucose, POC 216(H) 70 - 199 mg/dL [facility] Blood 09/12/2021 9:03 PM CDT 09/12/2021 9:03 PM CDT us Maddi Aaron MD LAB POCT ORDERABLES - DEVIC E Final Result Performing Organization Address City/[facility] Co de Phone Number [facility] [place] [address] * (ABNORMAL) Albumin (09/12/2021 8:59 PM CDT) [facility] Albumin 3.2(L) 3.5 - 5.0 g/dL [facility] Blood 09/12/2021 8:59 PM CDT 09/12/2021 10:13 PM CDT us Maddi Aaron MD LAB BLOOD ORDERABLES Final Result [facility] [place] [address] * (ABNORMAL) eGFR (09/12/2021 8:59 PM CDT) Pathologist [facility] eGFR 25(L) 90 - 130 mL/min/1. 73 m2 [facility] [...] interpretive data was last reviewed 2021. Blood 09/12/2021 8:59 PM CDT 09/12/2021 10:13 PM CDT us Maddi Aaron MD LAB BLOOD ORDERABLES Final Result [facility] [place] [address] * (ABNORMAL) Basic metabolic panel, serum (09/12/2021 8:59 PM CDT) Sodium 141 135 - 145 mmol/L [facility] Potassium, sr 4.6 3.6 - 5.2 mmol/L [facility] Comment:Hemolyzed; Potassium value may be falsely elevated by as much as 0.3-0.5 mmol/L. Suggest redraw and reanalysis. Chloride 104 97 - 110 mmol/L [facility] CO2 25 22 - 32 mmol/L [facility] Anion gap 12 2 - 15 mmol/L [facility] BUN 47(H) 8 - 25 mg/dL [facility] Creatinine 2.09(H) 0.60 - 1.10 mg/dL [facility] Glucose 199 70 - 199 mg/dL [facility] interpretive data was last revised 2017. Calcium 9.1 8.5 - 10.3 mg/dL [facility] Blood 09/12/2021 8:59 PM CDT 09/12/2021 10:01 PM CDT us Maddi Aaron MD LAB BLOOD ORDERABLES Final Result [facility] [place] [address] * (ABNORMAL) Differential, auto (09/12/2021 8:59 PM CDT) Neutrophil abs 6.6(H) 1.7 - 6.5 K/cumm [facility] Imm gran abs 0.1 0.0 - 0.1 K/cumm [facility] Lymphocyte abs 2.7 0.8 - 3.3 K/cumm [facility] Monocyte abs 0.7 0.2 - 0.8 K/cumm [facility] Eosinophil abs 0.2 0.0 - 0.5 K/cumm [facility] Basophil abs 0.0 0.0 - 0.1 K/cumm [facility] Neutrophil pct 63.5 % [facility] Comment: Interpretive Data Percent cell count reference ranges are not reported, since discordance with absolute values may lead to misinterpretation of CBC data. Current Interpretive Data was last revised on 2017. Imm gran pct 0.7 % [facility] Comment: Interpretive Data Percent cell count reference ranges are not reported, since discordance with absolute values may lead to misinterpretation of CBC data. Current Interpretive Data was last revised on 2017. Lymphocyte pct 26.4 % [facility] Comment: Interpretive Data Percent cell count reference ranges are not reported, since discordance with absolute values may lead to misinterpretation of CBC data. Current Interpretive Data was last revised on 2017. Monocyte pct 7.0 % [facility] Comment: Interpretive Data Percent cell count reference ranges are not reported, since discordance with absolute values may lead to misinterpretation of CBC data. Current Interpretive Data was last revised on 2017. Eosinophil pct 2.0 % [facility] Comment: Interpretive Data Percent cell count reference ranges are not reported, since discordance with absolute values may lead to misinterpretation of CBC data. Current Interpretive Data was last revised on 2017. Basophil pct 0.4 % [facility] Comment: Interpretive Data Percent cell count reference ranges are not reported, since discordance with absolute values may lead to misinterpretation of CBC data. Current Interpretive Data was last revised on 2017. Blood 09/12/2021 8:59 PM CDT 09/12/2021 9:49 PM CDT Sagar Moreno MD LAB BLOOD ORDERABLES Final Res ult Performing Organization Address City/[facility] Co de Phone Number [facility] [place] [address] * Magnesium (09/12/2021 8:59 PM CDT) [facility] Magnesium 1.9 1.4 - 2.5 mg/dL [facility] Blood 09/12/2021 8:59 PM CDT 09/12/2021 10:01 PM CDT Sagar Moreno MD LAB BLOOD ORDERABLES Final Res ult Performing Organization Address [facility] de Phone Number [facility] [place] [address] * (ABNORMAL) CBC with auto differential (09/12/2021 8:59 PM CDT) [facility] WBC 10.3(H) 3.8 - 9.9 K/cumm [facility] Hgb 7.5(L) 11.9 - 15.5 g/dL [facility] Hct 24.5(L) 35.6 - 45.5 % [facility] Plt 305 150 - 400 K/cumm [facility] MPV 11.6 9.1 - 12.3 fL [facility] RBC 2.61(L) 3.90 - 5.20 M/cumm [facility] MCV 93.9 81.3 - 96.4 fL [facility] MCH 28.7 27.1 - 33.3 pg [facility] MCHC 30.6(L) 32.3 - 35.7 g/dL [facility] RDW CV 16.0(H) 11.1 - 14.9 % [facility] RDW SD 54.4(H) 35.7 - 48.1 fL [facility] NRBC abs 0.02(H) 0.00 - 0.01 K/cumm [facility] Blood 09/12/2021 8:59 PM CDT 09/12/2021 9:49 PM CDT us Sagar Moreno MD LAB BLOOD ORDERABLES Final Res ult Performing Organization Address City/[facility]/ZIP Co de Phone Number [facility] [place] [address] * POCT glucose (09/12/2021 4:32 PM CDT) Glucose, POC 188 70 - 199 mg/dL [facility] Blood 09/12/2021 4:32 PM CDT 09/12/2021 4:32 PM CDT us Maddi Aaron MD LAB POCT ORDERABLES - DEVIC E Final Result Performing Organization Address [facility] Co de Phone Number [facility] [place] [address] * POCT glucose (09/12/2021 1:12 PM CDT) Glucose, POC 180 70 - 199 mg/dL [facility] Blood 09/12/2021 1:12 PM CDT 09/12/2021 1:12 PM CDT us Maddi Aaron MD LAB POCT ORDERABLES - DEVIC E Final Result Performing Organization Address City/[facility]/[place] [address] * POCT glucose (09/12/2021 8:02 AM CDT) Glucose, POC 148 70 - 199 mg/dL [facility] Blood 09/12/2021 8:02 AM CDT 09/12/2021 8:02 AM CDT us Maddi Aaron MD LAB POCT ORDERABLES - DEVIC E Final Result Performing Organization Address [facility] Co de Phone Number [facility] [place] [address] * (ABNORMAL) eGFR (09/11/2021 10:35 PM CDT) eGFR 27(L) 90 - 130 mL/min/1. 73 m2 [facility] [...] interpretive data was last reviewed 2021. Blood 09/11/2021 10:3 5 PM CDT 09/11/2021 11:34 PM CDT us Sagar Moreno MD LAB BLOOD ORDERABLES Final Res ult Performing Organization Address City/[facility]/ZIP Co de Phone Number [facility] [place] [address] * Differential, auto (09/11/2021 10:35 PM CDT) Neutrophil abs 6.1 1.7 - 6.5 K/cumm [facility] Imm gran abs 0.1 0.0 - 0.1 K/cumm [facility] Lymphocyte abs 2.8 0.8 - 3.3 K/cumm [facility] Monocyte abs 0.7 0.2 - 0.8 K/cumm [facility] Eosinophil abs 0.2 0.0 - 0.5 K/cumm [facility] Basophil abs 0.0 0.0 - 0.1 K[facility]umm [facility] Neutrophil pct 61.1 % [facility] Comment: Interpretive Data Percent cell count reference ranges are not reported, since discordance with absolute values may lead to misinterpretation of CBC data. Current Interpretive Data was last revised on 2017. Imm gran pct 0.6 % [facility] Comment: Interpretive Data Percent cell count reference ranges are not reported, since discordance with absolute values may lead to misinterpretation of CBC data. Current Interpretive Data was last revised on 2017. Lymphocyte pct 28.3 % [facility] Comment: Interpretive Data Percent cell count reference ranges are not reported, since discordance with absolute values may lead to misinterpretation of CBC data. Current Interpretive Data was last revised on 2017. Monocyte pct 7.3 % [facility] Comment: Interpretive Data Percent cell count reference ranges are not reported, since discordance with absolute values may lead to misinterpretation of CBC data. Current Interpretive Data was last revised on 2017. Eosinophil pct 2.3 % [facility] Comment: Interpretive Data Percent cell count reference ranges are not reported, since discordance with absolute values may lead to misinterpretation of CBC data. Current Interpretive Data was last revised on 2017. Basophil pct 0.4 % [facility] Comment: Interpretive Data Percent cell count reference ranges are not reported, since discordance with absolute values may lead to misinterpretation of CBC data. Current Interpretive Data was last revised on 2017. Blood 09/11/2021 10:3 5 PM CDT 09/11/2021 11:34 PM CDT Sagar Moreno MD LAB BLOOD ORDERABLES Final Res ult Performing Organization Address City/[facility] Co de Phone Number [facility] Department [place] [address] * Magnesium (09/11/2021 10:35 PM CDT) Pathologist [facility] Magnesium 1.9 1.4 - 2.5 mg/dL [facility] Blood 09/11/2021 10:3 5 PM CDT 09/11/2021 11:34 PM CDT Sagar Moreno MD LAB BLOOD ORDERABLES Final Res ult Performing Organization Address [facility] de Phone Number [facility] Department [place] [address] * (ABNORMAL) Basic metabolic panel (09/11/2021 10:35 PM CDT) Pathologist [facility] Sodium 143 135 - 145 mmol/L [facility] Potassium, pl 4.2 3.3 - 4.9 mmol/L [facility] Chloride 104 97 - 110 mmol/L [facility] CO2 27 22 - 32 mmol/L [facility] Anion gap 12 2 - 15 mmol/L [facility] BUN 48(H) 8 - 25 mg/dL [facility] Creatinine 1.98(H) 0.60 - 1.10 mg/dL [facility] Glucose 173 70 - 199 mg/dL [facility] 10.3 mg/dL [facility] Blood 09/11/2021 10:3 5 PM CDT 09/11/2021 11:34 PM CDT Sagar Moreno MD LAB BLOOD ORDERABLES Final Res ult Performing Organization Address [facility] Co de Phone Number [facility] [place] [address] * (ABNORMAL) CBC with auto differential (09/11/2021 10:35 PM CDT) WBC 10.0(H) 3.8 - 9.9 K/cumm [facility] Hgb 7.5(L) 11.9 - 15.5 g/dL [facility] Hct 23.5(L) 35.6 - 45.5 % [facility] Plt 272 150 - 400 K/cumm [facility] MPV 11.3 9.1 - 12.3 fL [facility] RBC 2.53(L) 3.90 - 5.20 M/cumm [facility] MCV 92.9 81.3 - 96.4 fL [facility] MCH 29.6 27.1 - 33.3 pg [facility] MCHC 31.9(L) 32.3 - 35.7 g/dL [facility] RDW CV 16.2(H) 11.1 - 14.9 % [facility] RDW SD 54.1(H) 35.7 - 48.1 fL [facility] NRBC abs 0.03(H) 0.00 - 0.01 K/cumm [facility] Blood 09/11/2021 10:3 5 PM CDT 09/11/2021 11:34 PM CDT us Sagar Moreno MD LAB BLOOD ORDERABLES Final Res ult Performing Organization Address City/[facility]/ZIP Co de Phone Number [facility] [place] [address] * (ABNORMAL) POCT glucose (09/11/2021 8:06 PM CDT) Glucose, POC 239(H) 70 - 199 mg/dL [facility] Blood 09/11/2021 8:06 PM CDT 09/11/2021 8:06 PM CDT us Maddi Aaron MD LAB POCT ORDERABLES - DEVIC E Final Result [facility] [place] [address] * (ABNORMAL) POCT glucose (09/11/2021 5:02 PM CDT) Glucose, POC 218(H) 70 - 199 mg/dL [facility] Blood 09/11/2021 5:02 PM CDT 09/11/2021 5:02 PM CDT us Maddi Aaron MD LAB POCT ORDERABLES - DEVIC E Final Result Performing Organization Address City/[facility]/[place] [address] * (ABNORMAL) POCT glucose (09/11/2021 12:58 PM CDT) Glucose, POC 215(H) 70 - 199 mg/dL [facility] Blood 09/11/2021 12:5 8 PM CDT 09/11/2021 12:58 PM CDT us Maddi Aaron MD LAB POCT ORDERABLES - DEVIC E Final Result [facility] [place] [address] * (ABNORMAL) POCT glucose (09/11/2021 10:21 AM CDT) Glucose, POC 204(H) 70 - 199 mg/dL [facility] Blood 09/11/2021 10:2 1 AM CDT 09/11/2021 10:21 AM CDT us Maddi Aaron MD LAB POCT ORDERABLES - DEVIC E Final Result [facility] Department [place] [address] * US Abdomen Complete (09/11/2021 9:27 AM CDT) Anatomical Region Laterality Modality Abdomen N/A Ultrasound 09/11/2021 9:51 AM CDT Impressions 09/11/2021 10:55 AM CDT 1. ??No sonographic findings of cirrhosis. 2. ??Right pleural effusion. Dr. Bronson (associate professor of radiology) personally participated in sonographic imaging of this patient. ANAY Bernardo also participated in sonographic imaging of this patient. Dictated by: Cristo Bronson MD The radiology attending physician has personally reviewed this study, and had reviewed and/or edited this written report and agrees with it. Electronically signed by: Mayuri Gibson M.D. Narrative 09/11/2021 10:55 AM CDT EXAMINATION: ??COMPLETE ABDOMINAL SONOGRAM HISTORY: ??70-year-old woman with diabetes mellitus and acute on chronic kidney disease. ??She is hospitalized with anasarca. ??Evaluate for cirrhosis. COMPARISON: ??None FINDINGS: ?? Liver: The liver is normal in size. ??The echotexture is normal. ??The echogenicity is normal. There is no surface nodularity. No focal solid lesions are visualized. ?? Gallbladder: The gallbladder is normal in size. There are no stones or sludge within the gallbladder. There is no gallbladder wall thickening. Bile Duct: There is no intrahepatic bile duct dilatation. The diameter of the common duct is 5 mm in the mid segment and 2 mm in the distal segment. Kidneys: There is no hydronephrosis in the visualized portions of the kidneys. Pancreas: Pancreas is not well visualized due to overlying bowel gas. Spleen: The spleen is normal in size. Aorta: The proximal aorta is normal. Inferior vena cava: The proximal IVC is normal. Other Findings: There is a right pleural effusion. Procedure Note Mayuri Gibson MD - 09/11/2021 EXAMINATION: COMPLETE ABDOMINAL SONOGRAM HISTORY: 70-year-old woman with diabetes mellitus and acute on chronic kidney disease. She is hospitalized with anasarca. Evaluate for cirrhosis. COMPARISON: None FINDINGS: Liver: The liver is normal in size. The echotexture is normal. The echogenicity is normal. There is no surface nodularity. No focal solid lesions are visualized. Gallbladder: The gallbladder is normal in size. There are no stones or sludge within the gallbladder. There is no gallbladder wall thickening. Bile Duct: There is no intrahepatic bile duct dilatation. The diameter of the common duct is 5 mm in the mid segment and 2 mm in the distal segment. Kidneys: There is no hydronephrosis in the visualized portions of the kidneys. Pancreas: Pancreas is not well visualized due to overlying bowel gas. Spleen: The spleen is normal in size. Aorta: The proximal aorta is normal. Inferior vena cava: The proximal IVC is normal. Other Findings: There is a right pleural effusion. IMPRESSION: 1. No sonographic findings of cirrhosis. 2. Right pleural effusion. Dr. Bronson (associate professor of radiology) personally participated in sonographic imaging of this patient. ANAY Bernardo also participated in sonographic imaging of this patient. Dictated by: Cristo Bronson MD The radiology attending physician has personally reviewed this study, and had reviewed and/or edited this written report and agrees with it. Electronically signed by: Mayuri Gibson M.D. us Maddi Aaron MD IMG US PROCEDURES Final Res ult * (ABNORMAL) POCT glucose (09/10/2021 9:44 PM CDT) Glucose, POC 203(H) 70 - 199 mg/dL [facility] Blood 09/10/2021 9:44 PM CDT 09/10/2021 9:44 PM CDT us Maddi Aaron MD LAB POCT ORDERABLES - DEVIC E Final Result Performing Organization Address [facility] Co de Phone Number [facility] Department [place] [address] * (ABNORMAL) eGFR (09/10/2021 9:10 PM CDT) Pathologist [facility] eGFR 28(L) 90 - 130 mL/min/1. 73 m2 [facility] [...] interpretive data was last reviewed 2021. Blood 09/10/2021 9:10 PM CDT 09/10/2021 10:11 PM CDT us Sagar Moreno MD LAB BLOOD ORDERABLES Final Res ult Performing Organization Address City/[facility] Co de Phone Number [facility] Department [place] [address] * (ABNORMAL) Differential, auto (09/10/2021 9:10 PM CDT) Neutrophil abs 8.2(H) 1.7 - 6.5 K/cumm [facility] Imm gran abs 0.1 0.0 - 0.1 K/cumm [facility] Lymphocyte abs 2.8 0.8 - 3.3 K/cumm [facility] Monocyte abs 0.8 0.2 - 0.8 K/cumm [facility] Eosinophil abs 0.3 0.0 - 0.5 K/cumm [facility] Basophil abs 0.0 0.0 - 0.1 K/cumm [facility] Neutrophil pct 67.4 % [facility] Comment: Interpretive Data Percent cell count reference ranges are not reported, since discordance with absolute values may lead to misinterpretation of CBC data. Current Interpretive Data was last revised on 2017. Imm gran pct 0.6 % [facility] Comment: Interpretive Data Percent cell count reference ranges are not reported, since discordance with absolute values may lead to misinterpretation of CBC data. Current Interpretive Data was last revised on 2017. Lymphocyte pct 23.0 % [facility] Comment: Interpretive Data Percent cell count reference ranges are not reported, since discordance with absolute values may lead to misinterpretation of CBC data. Current Interpretive Data was last revised on 2017. Monocyte pct 6.6 % [facility] Comment: Interpretive Data Percent cell count reference ranges are not reported, since discordance with absolute values may lead to misinterpretation of CBC data. Current Interpretive Data was last revised on 2017. [facility]osinophil pct 2.1 % [facility] Comment: Interpretive Data Percent cell count reference ranges are not reported, since discordance with absolute values may lead to misinterpretation of CBC data. Current Interpretive Data was last revised on 2017. Basophil pct 0.3 % [facility] Comment: Interpretive Data Percent cell count reference ranges are not reported, since discordance with absolute values may lead to misinterpretation of CBC data. Current Interpretive Data was last revised on 2017. Blood 09/10/2021 9:10 PM CDT 09/10/2021 10:11 PM CDT us Sagar Moreno MD LAB BLOOD ORDERABLES Final Res ult [facility] Department [place] [address] * Pro B-type natriuretic peptide (09/10/2021 9:10 PM CDT) NT-proBNP 146 <=300 pg/mL [facility] Comment: Interpretive Comments: A. Dyspnea in Acute [...] Interpretive Data Last Revised Date: 2018. Blood 09/10/2021 9:10 PM CDT 09/10/2021 10:11 PM CDT us Maddi Aaron MD LAB BLOOD ORDERABLES Final Result [facility] Department [place] [address] * (ABNORMAL) Lipid panel (09/10/2021 9:10 PM CDT) Cholesterol 84 30 - 199 mg/dL [facility] Comment: Interpretive Data Ages < or = [...] Data was last revised on 2018. Triglycerides 153(H) <=149 mg/dL [facility] Comment: Interpretive Data Ages < or = [...] Data was last revised on 2018. HDL 33(L) >=40 mg/dL [facility] Comment: Interpretive Data Ages < or = [...] was last revised on 2018. LDL, calculated 20 <=129 mg/dL [facility] Comment: Interpretive Data Ages < or = [...] Interpretive Data was last revised on 2018. Non-HDL Cholesterol 51 mg/dL [facility] Comment: Interpretive Data Ages < or = [...] last revised on 2018. Chol/HDL ratio 3 [facility] Blood 09/10/2021 9:10 PM CDT 09/10/2021 10:11 PM CDT us Maddi Aaron MD LAB BLOOD ORDERABLES Final Result Performing Organization Address [facility] de Phone Number [facility] [place] [address] * Magnesium (09/10/2021 9:10 PM CDT) Magnesium 1.9 1.4 - 2.5 mg/dL [facility] Blood 09/10/2021 9:10 PM CDT 09/10/2021 10:11 PM CDT us Sagar Moreno MD LAB BLOOD ORDERABLES Final Res ult Performing Organization Address [facility] de Phone Number [facility] Department [place] [address] * (ABNORMAL) Basic metabolic panel (09/10/2021 9:10 PM CDT) Pathologist [facility] Sodium 142 135 - 145 mmol/L [facility] Potassium, pl 4.2 3.3 - 4.9 mmol/L [facility] Chloride 105 97 - 110 mmol/L [facility] CO2 26 22 - 32 mmol/L [facility] Anion gap 11 2 - 15 mmol/L [facility] BUN 42(H) 8 - 25 mg/dL [facility] Creatinine 1.88(H) 0.60 - 1.10 mg/dL [facility] Glucose 223(H) 70 - 199 mg/dL [facility] [...] interpretive data was last revised 2017. Calcium 9.4 8.5 - 10.3 mg/dL [facility] Blood 09/10/2021 9:10 PM CDT 09/10/2021 10:11 PM CDT Sagar Moreno MD LAB BLOOD ORDERABLES Final Res ult [facility] Department [place] [address] * (ABNORMAL) CBC with auto differential (09/10/2021 9:10 PM CDT) Pathologist [facility] WBC 12.2(H) 3.8 - 9.9 K/cumm [facility] Hgb 7.6(L) 11.9 - 15.5 g/dL [facility] Hct 24.5(L) 35.6 - 45.5 % [facility] Plt 299 150 - 400 K/cumm [facility] MPV 11.5 9.1 - 12.3 fL [facility] RBC 2.62(L) 3.90 - 5.20 M/cumm [facility] MCV 93.5 81.3 - 96.4 fL [facility] MCH 29.0 27.1 - 33.3 pg [facility] MCHC 31.0(L) 32.3 - 35.7 g/dL [facility] RDW CV 15.9(H) 11.1 - 14.9 % [facility] RDW SD 53.3(H) 35.7 - 48.1 fL [facility] NRBC abs 0.02(H) 0.00 - 0.01 K/cumm [facility] Blood 09/10/2021 9:10 PM CDT 09/10/2021 10:11 PM CDT us Sagar Moreno MD LAB BLOOD ORDERABLES Final Res ult Performing Organization Address City/[facility]/ZIP Co de Phone Number [facility] [place] [address] * POCT glucose (09/10/2021 4:08 PM CDT) Glucose, POC 191 70 - 199 mg/dL [facility] Blood 09/10/2021 4:08 PM CDT 09/10/2021 4:08 PM CDT us Maddi Aaron MD LAB POCT ORDERABLES - DEVIC E Final Result [facility] [place] [address] * Type and screen (09/10/2021 11:16 AM CDT) Regi, indirect Negative [facility] ABO Rh B Positive [facility] Blood 09/10/2021 11:1 6 AM CDT 09/10/2021 12:42 PM CDT Narrative [facility] - 09/10/2021 1:51 PM CDT Has the patient had Daratumumab or Isatuximab in the past 6 months?->Unknown us Maddi Aaron MD LAB BLOOD BANK TEST ORDERAB LES Final Result Performing Organization Address [facility]/ZIP Co de Phone Number [facility] Department [place] [address] * (ABNORMAL) CBC without differential (09/10/2021 11:16 AM CDT) WBC 10.3(H) 3.8 - 9.9 K/cumm [facility] Hgb 8.8(L) 11.9 - 15.5 g/dL [facility] Hct 28.3(L) 35.6 - 45.5 % [facility] Plt 283 150 - 400 K/cumm [facility] MPV 12.2 9.1 - 12.3 fL [facility] RBC 3.02(L) 3.90 - 5.20 M/cumm [facility] MCV 93.7 81.3 - 96.4 fL [facility] MCH 29.1 27.1 - 33.3 pg [facility] MCHC 31.1(L) 32.3 - 35.7 g/dL [facility] RDW CV 16.1(H) 11.1 - 14.9 % [facility] RDW SD 53.7(H) 35.7 - 48.1 fL [facility] NRBC abs 0.02(H) 0.00 - 0.01 K/cumm [facility] Blood 09/10/2021 11:1 6 AM CDT 09/10/2021 12:37 PM CDT us Maddi Aaron MD LAB BLOOD ORDERABLES Final Result Performing Organization Address City/[facility]/ZIP Co de Phone Number [facility] Department [place] [address] * POCT glucose (09/10/2021 11:00 AM CDT) Glucose, POC 135 70 - 199 mg/dL [facility] Blood 09/10/2021 11:0 0 AM CDT 09/10/2021 11:00 AM CDT us Maddi Aaron MD LAB POCT ORDERABLES - DEVIC E Final Result [facility] [place] [address] * TRANSTHORACIC ECHO (TTE) COMPLETE W DOPPLER/CF W CONTRAST (09/10/2021 10:28 AM CDT) Anatomical Region Laterality Modality Ultrasound 09/10/2021 8:30 AM CDT Narrative 09/10/2021 10:36 AM CDT Patient name: Barbara Chakraborty Date of test: 09/10/2021 Type of test: TTE w/Doppler [facility] #: [id number] Date of : 1950 (F) Italian Lecturer: Nalini Lopez [facility] Referring Physician: SAGAR MORENO MD Contrast Agent: 1.5 ml Optison Administered, (1.5 ml wasted). Contrast Administered by: Supervised/Interpreted by: Jevon Torrez MD Diagnosis: Location: [facility] Reason for test: HF, overload MV Structure: Normal, ?MV Motion: Normal, ?? Mitral Annulus: Normal AV Structure: tricuspid and is Normal, ?? AV Motion: Normal Aotic root: Normal, ?TM: Normal, ?? PV: Normal Valvular Vegetations: none seen, ?Mass/Thrombi: none seen RA: Normal Measurements: ?M-Mode ?Normal ? Aotic Root: ? <3.8 ? LA: ? <3.8 ? RV: ? <2.8 ? LV(ED): ? <5.7 ? LV(ES): ? Variable ?2D Linear Normal ? Aotic Root: 2.8 cm ?<3.6 ? Ao Indexed: 1.6 cm/M2 <2.0 ? LA: ? <3.8 ? RV: ? 3.7 cm ?<4.2 ? LV(ED): ? 3.8 cm ?<5.3 ? LV(ES): ? 2.2 cm ?<3.5 ?2D Vol. ?? Normal ?Indexed ?? Indexed Normal RA: ? 38.0 ml ? 21.8 ml/M2 ?9-33 ? LA: ? 46.0 ml ? 26.3 ml/M2 ?16-34 ? RV: ? <11.6 ? LV(ED): ? 83.0 ml ?? 46-106 ?47.5 ml/M2 ?<62 ? LV(ES): ? 26.0 ml ?? 14-42 ? 14.9 ml/M2 ?<25 ?3D Vol. ? Indexed Normal LV(ED): ?<62 ? LV(ES): ?<24 ? LV EF: 69 % ?? (Normal: >=54%) ?? LV Septum: 1.3 cm ?(Normal: <0.9 cm) Wall Motion Scoring (1=Normal 2=Hypo 3=Akinetic 4=Dyskin./Aneurysm 0=Not visualized) Parasternal Long [place]:MAS=1 BAS=1 MIL=1 YOGESH=1 Parasternal Short [place]:MAS=1 MIS=1 SD=1 MIL=1 MAL=1 MA=1 Apical 4 Chambers:=1 MIS=1 BIS=1 BAL=1 MAL=1 AL=1 AC=1 Apical 2 Chambers:AI=1 SD=1 BI=1 BA=1 MA=1 AA=1 AC=1 LV Global Longitudinal Strain: -18.2% ??(Normal <-17%) RV Global Longitudinal Strain: LV Function: Normal LV Ejection Fraction, ??(EF=54-74%) RV Function: Normal Septal Motion: Normal Pericardial Effusion: none seen Atrial Septum: Normal DOPPLER/COLOR FLOW DOPPLER RESULTS: Diastolic Function: Normal Tricuspid Valve: mild TV regurgitation Pulmonic Valve: normal PV AV Regurgitation: No AR seen AV Stenosis: no AV Area: ??cm2 AV Pressure Gradient (mmHg): Mean: 0, Peak:0 MV Regurgitation: No MR seen MV Stenosis: ??no MS MV Area: ??cm2 MV Pressure Gradient (mmHg): Mean: 0 MV ERO: ??cm Regurg. Vol.: ??ml/beat Regurg. Frac.: ??% PA Pressure: 40 mmHg DOPPLER/COLOR FOLOW DOPPLER COMMENTS: No AR seen, No MR seen, no , ??no MS, mild TV regurgitation, normal PV. Diastolic function: Normal CONTRAST: 1.5 ml Optison Administered, (1.5 ml wasted). SUMMARY: Normal LV and RV size and systolic function. LVEF 69%. Normal global LV Myocardial longitudinal function and LV strain pattern. ??No significant valvular abnormalities noted. Estimated PA systolic pressure 40+RA(5-10) mmHg. Diastolic function is normal for age. ??LA is normal. Mild concentric LV hypertrophy. Normal Inferior vena cava. Normal aorta. No comparison study. Confirmed on ??09/10/2021 - 10:36:11 by Jevon Torrez MD By signing this report, the attending utility plant operative certifies that he or she has personally supervised and interpreted the echocardiogram and has reviewed and or edited and agrees with the written comments contained within the report. Procedure Note Jevon Carrasquillo MD - 09/10/2021 Patient name: Barbara Chakraborty Date of test: 09/10/2021 Type of test: TTE /[facility] #: [id number] Date of : 1950 (F) Italian Lecturer: Nalini Lopez [facility] Referring Physician: SAGAR MORENO MD Contrast Agent: 1.5 ml Optison Administered, (1.5 ml wasted). Contrast Administered by: Supervised/Interpreted by: Jevon Torrez MD Diagnosis: Location: [facility] Reason for test: HF, overload MV Structure: Normal, MV Motion: Normal, Mitral Annulus: Normal AV Structure: tricuspid and is Normal, AV Motion: Normal Aotic root: Normal, TM: Normal, PV: Normal Valvular Vegetations: none seen, Mass/Thrombi: none seen RA: Normal Measurements: M-Mode Normal Aotic Root: <3.8 LA: <3.8 RV: <2.8 LV(ED): <5.7 LV(ES): Variable 2D Linear Normal Aotic Root: 2.8 cm <3.6 Ao Indexed: 1.6 cm/M2 <2.0 LA: <3.8 RV: 3.7 cm <4.2 LV(ED): 3.8 cm <5.3 LV(ES): 2.2 cm <3.5 2D Vol. Normal Indexed Indexed Normal RA: 38.0 ml 21.8 ml/M2 9-33 LA: 46.0 ml 26.3 ml/M2 16-34 RV: <11.6 LV(ED): 83.0 ml 46-106 47.5 ml/M2 <62 LV(ES): 26.0 ml 14-42 14.9 ml/M2 <25 3D Vol. Indexed Normal LV(ED): <62 LV(ES): <24 LV EF: 69 % (Normal: >=54%) LV Septum: 1.3 cm (Normal: <0.9 cm) Wall Motion Scoring (1=Normal 2=Hypo 3=Akinetic 4=Dyskin./Aneurysm 0=Not visualized) Parasternal Long [place]:MAS=1 BAS=1 MIL=1 YOGESH=1 Parasternal Short [place]:MAS=1 MIS=1 SD=1 MIL=1 MAL=1 MA=1 Apical 4 Chambers:=1 MIS=1 BIS=1 BAL=1 MAL=1 AL=1 AC=1 Apical 2 Chambers:AI=1 SD=1 BI=1 BA=1 MA=1 AA=1 AC=1 LV Global Longitudinal Strain: -18.2% (Normal <-17%) RV Global Longitudinal Strain: LV Function: Normal LV Ejection Fraction, (EF=54-74%) RV Function: Normal Septal Motion: Normal Pericardial Effusion: none seen Atrial Septum: Normal DOPPLER/COLOR FLOW DOPPLER RESULTS: Diastolic Function: Normal Tricuspid Valve: mild TV regurgitation Pulmonic Valve: normal PV AV Regurgitation: No AR seen AV Stenosis: no AV Area: cm2 AV Pressure Gradient (mmHg): Mean: 0, Peak:0 MV Regurgitation: No MR seen MV Stenosis: no MS MV Area: cm2 MV Pressure Gradient (mmHg): Mean: 0 MV ERO: cm Regurg. Vol.: ml/beat Regurg. Frac.: % PA Pressure: 40 mmHg DOPPLER/COLOR FOLOW DOPPLER COMMENTS: No AR seen, No MR seen, no , no MS, mild TV regurgitation, normal PV. Diastolic function: Normal CONTRAST: 1.5 ml Optison Administered, (1.5 ml wasted). SUMMARY: Normal LV and RV size and systolic function. LVEF 69%. Normal global LV Myocardial longitudinal function and LV strain pattern. No significant valvular abnormalities noted. Estimated [place] systolic pressure 40+RA(5-10) mmHg. Diastolic function is normal for age. LA is normal. Mild concentric LV hypertrophy. Normal Inferior vena cava. Normal aorta. No comparison study. Confirmed on 09/10/2021 - 10:36:11 by Jevon Torrez MD By signing this report, the attending utility plant operative certifies that he or she has personally supervised and interpreted the echocardiogram and has reviewed and or edited and agrees with the written comments contained within the report. us Sagar Moreno MD CV ECHO PROCEDURES Final Resul t * (ABNORMAL) eGFR (09/09/2021 9:49 PM CDT) [facility] eGFR 27(L) 90 - 130 mL/min/1. 73 m2 [facility] [...] interpretive data was last reviewed 2021. Blood 09/09/2021 9:49 PM CDT 09/09/2021 10:42 PM CDT Sagar Moreno MD LAB BLOOD ORDERABLES Final Res ult [facility] Department [place] [address] * Differential, auto (09/09/2021 9:49 PM CDT) [facility] Neutrophil abs 5.0 1.7 - 6.5 K/cumm [facility] Imm gran abs 0.1 0.0 - 0.1 K/cumm [facility] Lymphocyte abs 2.8 0.8 - 3.3 K/cumm [facility] Monocyte abs 0.8 0.2 - 0.8 K/cumm [facility] Eosinophil abs 0.2 0.0 - 0.5 K/cumm [facility] Basophil abs 0.0 0.0 - 0.1 K/cumm [facility] Neutrophil pct 56.2 % [facility] Comment: Interpretive Data Percent cell count reference ranges are not reported, since discordance with absolute values may lead to misinterpretation of CBC data. Current Interpretive Data was last revised on 2017. Imm gran pct 0.7 % [facility] Comment: Interpretive Data Percent cell count reference ranges are not reported, since discordance with absolute values may lead to misinterpretation of CBC data. Current Interpretive Data was last revised on 2017. Lymphocyte pct 31.4 % [facility] Comment: Interpretive Data Percent cell count reference ranges are not reported, since discordance with absolute values may lead to misinterpretation of CBC data. Current Interpretive Data was last revised on 2017. Monocyte pct 8.7 % [facility] Comment: Interpretive Data Percent cell count reference ranges are not reported, since discordance with absolute values may lead to misinterpretation of CBC data. Current Interpretive Data was last revised on 2017. Eosinophil pct 2.6 % [facility] Comment: Interpretive Data Percent cell count reference ranges are not reported, since discordance with absolute values may lead to misinterpretation of CBC data. Current Interpretive Data was last revised on 2017. Basophil pct 0.4 % [facility] Comment: Interpretive Data Percent cell count reference ranges are not reported, since discordance with absolute values may lead to misinterpretation of CBC data. Current Interpretive Data was last revised on 2017. Blood 09/09/2021 9:49 PM CDT 09/09/2021 10:42 PM CDT Sagar Moreno MD LAB BLOOD ORDERABLES Final Res ult [facility] Department [place] [address] * Magnesium (09/09/2021 9:49 PM CDT) Pathologist [facility] Magnesium 1.8 1.4 - 2.5 mg/dL [facility] Blood 09/09/2021 9:49 PM CDT 09/09/2021 10:42 PM CDT Sagar Moreno MD LAB BLOOD ORDERABLES Final Res ult Performing Organization Address [facility] Co de Phone Number [facility] [place] [address] * (ABNORMAL) Basic metabolic panel (09/09/2021 9:49 PM CDT) [facility] Sodium 145 135 - 145 mmol/L [facility] Potassium, pl 4.2 3.3 - 4.9 mmol/L [facility] Chloride 107 97 - 110 mmol/L [facility] CO2 27 22 - 32 mmol/L [facility] Anion gap 11 2 - 15 mmol/L [facility] BUN 43(H) 8 - 25 mg/dL [facility] Creatinine 1.94(H) 0.60 - 1.10 mg/dL [facility] Glucose 159 70 - 199 mg/dL [facility] [...] interpretive data was last revised 2017. Calcium 9.4 8.5 - 10.3 mg/dL [facility] Blood 09/09/2021 9:49 PM CDT 09/09/2021 10:42 PM CDT Sagar Moreno MD LAB BLOOD ORDERABLES Final Res ult Performing Organization Address [facility]/ZIP Co de Phone Number [facility] Department [place] [address] * (ABNORMAL) CBC with auto differential (09/09/2021 9:49 PM CDT) Pathologist [facility] WBC 8.9 3.8 - 9.9 K/cumm [facility] Hgb 7.1(L) 11.9 - 15.5 g/dL [facility] Hct 22.3(L) 35.6 - 45.5 % [facility] Plt 259 150 - 400 K/cumm [facility] MPV 11.4 9.1 - 12.3 fL [facility] RBC 2.39(L) 3.90 - 5.20 M/cumm [facility] MCV 93.3 81.3 - 96.4 fL [facility] MCH 29.7 27.1 - 33.3 pg [facility] MCHC 31.8(L) 32.3 - 35.7 g/dL [facility] RDW CV 16.1(H) 11.1 - 14.9 % [facility] RDW SD 54.0(H) 35.7 - 48.1 fL [facility] NRBC abs 0.00 0.00 - 0.01 K/cumm [facility] Blood 09/09/2021 9:49 PM CDT 09/09/2021 10:42 PM CDT us Sagar Moreno MD LAB BLOOD ORDERABLES Final Res ult [facility] Department [place] [address] * POCT glucose (09/09/2021 9:24 PM CDT) Glucose, POC 181 70 - 199 mg/dL [facility] Blood 09/09/2021 9:24 PM CDT 09/09/2021 9:24 PM CDT Yaniv Barton MD LAB POCT ORDERABLES - DEVICE Fin al Result Performing Organization Address [facility] de Phone Number [facility] Department [place] [address] * (ABNORMAL) POCT glucose (09/09/2021 6:10 PM CDT) Glucose, POC 215(H) 70 - 199 mg/dL [facility] Blood 09/09/2021 6:10 PM CDT 09/09/2021 6:10 PM CDT Yaniv Barton MD LAB POCT ORDERABLES - DEVICE Fin al Result Performing Organization Address [facility] de Phone Number [facility] Department [place] [address] * (ABNORMAL) eGFR (09/09/2021 1:56 PM CDT) Pathologist [facility] eGFR 27(L) 90 - 130 mL/min/1. 73 m2 [facility] [...] interpretive data was last reviewed 2021. Blood 09/09/2021 1:56 PM CDT 09/09/2021 2:33 PM CDT us Yaniv Barton MD LAB BLOOD ORDERABLES Final Resul t [facility] Department [place] [address] * (ABNORMAL) Basic metabolic panel (09/09/2021 1:56 PM CDT) Sodium 142 135 - 145 mmol/L [facility] Potassium, pl 4.5 3.3 - 4.9 mmol/L [facility] Chloride 106 97 - 110 mmol/L [facility] CO2 29 22 - 32 mmol/L [facility] Anion gap 7 2 - 15 mmol/L [facility] BUN 40(H) 8 - 25 mg/dL [facility] Creatinine 1.99(H) 0.60 - 1.10 mg/dL [facility] Glucose 257(H) 70 - 199 mg/dL [facility] [...] interpretive data was last revised 2017. Calcium 9.5 8.5 - 10.3 mg/dL [facility] Blood 09/09/2021 1:56 PM CDT 09/09/2021 2:33 PM CDT Yaniv Barton MD LAB BLOOD ORDERABLES Final Resul t Performing Organization Address [facility] de Phone Number [facility] Department [place] [address] * (ABNORMAL) POCT glucose (09/09/2021 12:24 PM CDT) Glucose, POC 287(H) 70 - 199 mg/dL [facility] Blood 09/09/2021 12:2 4 PM CDT 09/09/2021 12:24 PM CDT Yaniv Barton MD LAB POCT ORDERABLES - DEVICE Fin al Result Performing Organization Address [facility] de Phone Number [facility] Department [place] [address] * (ABNORMAL) POCT glucose (09/09/2021 8:40 AM CDT) Glucose, POC 222(H) 70 - 199 mg/dL [facility] Blood 09/09/2021 8:40 AM CDT 09/09/2021 8:40 AM CDT Yaniv Barton MD LAB POCT ORDERABLES - DEVICE Fin al Result Performing Organization Address [facility] de Phone Number [facility] [address] * Differential, auto (09/08/2021 9:58 PM CDT) Neutrophil abs 5.6 1.7 - 6.5 K/cumm [facility] Imm gran abs 0.0 0.0 - 0.1 K/cumm [facility] Lymphocyte abs 3.1 0.8 - 3.3 K/cumm [facility] Monocyte abs 0.7 0.2 - 0.8 K/cumm [facility] Eosinophil abs 0.2 0.0 - 0.5 K/cumm [facility] Basophil abs 0.0 0.0 - 0.1 K/cumm [facility] Neutrophil pct 57.9 % [facility] Comment: Interpretive Data Percent cell count reference ranges are not reported, since discordance with absolute values may lead to misinterpretation of CBC data. Current Interpretive Data was last revised on 2017. Imm gran pct 0.4 % [facility] Comment: Interpretive Data Percent cell count reference ranges are not reported, since discordance with absolute values may lead to misinterpretation of CBC data. Current Interpretive Data was last revised on 2017. Lymphocyte pct 32.0 % [facility] Comment: Interpretive Data Percent cell count reference ranges are not reported, since discordance with absolute values may lead to misinterpretation of CBC data. Current Interpretive Data was last revised on 2017. Monocyte pct 7.1 % [facility] Comment: Interpretive Data Percent cell count reference ranges are not reported, since discordance with absolute values may lead to misinterpretation of CBC data. Current Interpretive Data was last revised on 2017. Eosinophil pct 2.3 % [facility] Comment: Interpretive Data Percent cell count reference ranges are not reported, since discordance with absolute values may lead to misinterpretation of CBC data. Current Interpretive Data was last revised on 2017. Basophil pct 0.3 % [facility] Comment: Interpretive Data Percent cell count reference ranges are not reported, since discordance with absolute values may lead to misinterpretation of CBC data. Current Interpretive Data was last revised on 2017. Blood 09/08/2021 9:58 PM CDT 09/08/2021 10:32 PM CDT us Sagar Moreno MD LAB BLOOD ORDERABLES Final Res ult [facility] Department [place] [address] * (ABNORMAL) CBC with auto differential (09/08/2021 9:58 PM CDT) [facility] WBC 9.7 3.8 - 9.9 K/cumm [facility] Hgb 8.0(L) 11.9 - 15.5 g/dL [facility] Hct 25.3(L) 35.6 - 45.5 % [facility] Plt 292 150 - 400 K/cumm [facility] MPV 11.5 9.1 - 12.3 fL [facility] RBC 2.72(L) 3.90 - 5.20 M/cumm [facility] MCV 93.0 81.3 - 96.4 fL [facility] MCH 29.4 27.1 - 33.3 pg [facility] MCHC 31.6(L) 32.3 - 35.7 g/dL [facility] RDW CV 15.9(H) 11.1 - 14.9 % [facility] RDW SD 52.0(H) 35.7 - 48.1 fL [facility] NRBC abs 0.02(H) 0.00 - 0.01 K/cumm [facility] Blood 09/08/2021 9:58 PM CDT 09/08/2021 10:32 PM CDT Sagar Moreno MD LAB BLOOD ORDERABLES Final Res ult [facility] Department [place] [address] * (ABNORMAL) eGFR (09/08/2021 9:50 PM CDT) [facility] eGFR 23(L) 90 - 130 mL/min/1. 73 m2 [facility] [...] interpretive data was last reviewed 2021. Blood 09/08/2021 9:50 PM CDT 09/08/2021 10:34 PM CDT Yaniv Barton MD LAB BLOOD ORDERABLES Final Resul t Performing Organization Address City/[facility]/ZIP Co de Phone Number [facility] Department of [employer] [place], [place] [id number] * Magnesium (09/08/2021 9:50 PM CDT) Pathologist [facility] Magnesium 1.9 1.4 - 2.5 mg/dL [facility] Blood 09/08/2021 9:50 PM CDT 09/08/2021 10:29 PM CDT Yaniv Barton MD LAB BLOOD ORDERABLES Final Resul t Performing Organization Address City/[facility]/ZIP Co de Phone Number [facility] [place] [address] * (ABNORMAL) Basic metabolic panel, serum (09/08/2021 9:50 PM CDT) Sodium 143 135 - 145 mmol/L [facility] Potassium, sr 4.2 3.6 - 5.2 mmol/L [facility] Chloride 103 97 - 110 mmol/L [facility] CO2 29 22 - 32 mmol/L [facility] Anion gap 11 2 - 15 mmol/L [facility] BUN 41(H) 8 - 25 mg/dL [facility] Creatinine 2.23(H) 0.60 - 1.10 mg/dL [facility] Glucose 194 70 - 199 mg/dL [facility] [...] interpretive data was last revised 2017. Calcium 9.8 8.5 - 10.3 mg/dL [facility] Blood 09/08/2021 9:50 PM CDT 09/08/2021 10:29 PM CDT Yaniv Barton MD LAB BLOOD ORDERABLES Final Resul t Performing Organization Address [facility] Co de Phone Number [facility] [place] [address] * (ABNORMAL) POCT glucose (09/08/2021 8:47 PM CDT) [facility] Signature Glucose, POC 246(H) 70 - 199 mg/dL [facility] Blood 09/08/2021 8:47 PM CDT 09/08/2021 8:47 PM CDT Yaniv Barton MD LAB POCT ORDERABLES - DEVICE Fin al Result Performing Organization Address City/[facility] Co de Phone Number [facility] Department [place] [address] * POCT glucose (09/08/2021 5:18 PM CDT) Glucose, POC 191 70 - 199 mg/dL [facility] Blood 09/08/2021 5:18 PM CDT 09/08/2021 5:18 PM CDT Yaniv Barton MD LAB POCT ORDERABLES - DEVICE Fin al Result Performing Organization Address City/[facility] Co de Phone Number [facility] [place] [address] * (ABNORMAL) POCT glucose (09/08/2021 12:30 PM CDT) Glucose, POC 263(H) 70 - 199 mg/dL [facility] Blood 09/08/2021 12:3 0 PM CDT 09/08/2021 12:30 PM CDT Yaniv Barton MD LAB POCT ORDERABLES - DEVICE Fin al Result Performing Organization Address [facility] de Phone Number [facility] [employer] [place] [address] * (ABNORMAL) POCT glucose (09/08/2021 8:37 AM CDT) Glucose, POC 234(H) 70 - 199 mg/dL [facility] Blood 09/08/2021 8:37 AM CDT 09/08/2021 8:37 AM CDT Yaniv Barton MD LAB POCT ORDERABLES - DEVICE Fin al Result Performing Organization Address [facility] Co de Phone Number [facility] [employer] [place] [address] * Check Sample (09/08/2021 4:08 AM CDT) ABO Rh B Positive [facility] HCLL OTHER 09/08/2021 4:08 AM CDT 09/08/2021 7:14 AM CDT us Yaniv Barton MD LAB BLOOD ORDERABLES Final Resul t Performing Organization Address [facility] Co de Phone Number [facility] Department [place] [address] * (ABNORMAL) POCT glucose (09/08/2021 4:07 AM CDT) Glucose, POC 222(H) 70 - 199 mg/dL [facility] Blood 09/08/2021 4:07 AM CDT 09/08/2021 4:07 AM CDT us Yaniv Barton MD LAB POCT ORDERABLES - DEVICE Fin al Result Performing Organization Address [facility] de Phone Number [facility] Department [place] [address] * (ABNORMAL) eGFR (09/07/2021 8:41 PM CDT) eGFR 27(L) 90 - 130 mL/min/1. 73 m2 [facility] [...] interpretive data was last reviewed 2021. Blood 09/07/2021 8:41 PM CDT 09/07/2021 9:23 PM CDT us Sagar Moreno MD LAB BLOOD ORDERABLES Final Res ult [facility] Department [place] [address] * Differential, auto (09/07/2021 8:41 PM CDT) Neutrophil abs 6.2 1.7 - 6.5 K/cumm [facility] Imm gran abs 0.0 0.0 - 0.1 K/cumm [facility] Lymphocyte abs 2.8 0.8 - 3.3 K/cumm [facility] Monocyte abs 0.7 0.2 - 0.8 K/cumm [facility] Eosinophil abs 0.2 0.0 - 0.5 K/cumm [facility] Basophil abs 0.0 0.0 - 0.1 K/cumm [facility] Neutrophil pct 62.1 % [facility] Comment: Interpretive Data Percent cell count reference ranges are not reported, since discordance with absolute values may lead to misinterpretation of CBC data. Current Interpretive Data was last revised on 2017. Imm gran pct 0.2 % [facility] Comment: Interpretive Data Percent cell count reference ranges are not reported, since discordance with absolute values may lead to misinterpretation of CBC data. Current Interpretive Data was last revised on 2017. Lymphocyte pct 28.6 % [facility] Comment: Interpretive Data Percent cell count reference ranges are not reported, since discordance with absolute values may lead to misinterpretation of CBC data. Current Interpretive Data was last revised on 2017. Monocyte pct 6.9 % [facility] Comment: Interpretive Data Percent cell count reference ranges are not reported, since discordance with absolute values may lead to misinterpretation of CBC data. Current Interpretive Data was last revised on 2017. Eosinophil pct 1.9 % [facility] Comment: Interpretive Data Percent cell count reference ranges are not reported, since discordance with absolute values may lead to misinterpretation of CBC data. Current Interpretive Data was last revised on 2017. Basophil pct 0.3 % [facility] Comment: Interpretive Data Percent cell count reference ranges are not reported, since discordance with absolute values may lead to misinterpretation of CBC data. Current Interpretive Data was last revised on 2017. Blood 09/07/2021 8:41 PM CDT 09/07/2021 9:23 PM CDT us Sagar Moreno MD LAB BLOOD ORDERABLES Final Res ult Performing Organization Address City/[facility]/ZIP Co de Phone Number [facility] [place] [address] * Type and screen (09/07/2021 8:41 PM CDT) ABO Rh B Positive [facility] Regi, indirect Negative [facility] Blood 09/07/2021 8:41 PM CDT 09/07/2021 9:34 PM CDT Narrative [facility] - 09/07/2021 10:49 PM CDT Has the patient had Daratumumab or Isatuximab in the past 6 months?->Unknown us Yaniv Barton MD LAB BLOOD BANK TEST ORDERABLES F inal Result Performing Organization Address City/[facility]/ZIP Co de Phone Number [facility] [place] [address] * Magnesium (09/07/2021 8:41 PM CDT) Magnesium 1.8 1.4 - 2.5 mg/dL [facility] Blood 09/07/2021 8:41 PM CDT 09/07/2021 9:23 PM CDT Sagar Moreno MD LAB BLOOD ORDERABLES Final Res ult [facility] Department [place] [address] * (ABNORMAL) Basic metabolic panel (09/07/2021 8:41 PM CDT) [facility] Sodium 140 135 - 145 mmol/L [facility] Potassium, pl 4.8 3.3 - 4.9 mmol/L [facility] Chloride 105 97 - 110 mmol/L [facility] CO2 24 22 - 32 mmol/L [facility] Anion gap 11 2 - 15 mmol/L [facility] BUN 42(H) 8 - 25 mg/dL [facility] Creatinine 1.99(H) 0.60 - 1.10 mg/dL [facility] Glucose 263(H) 70 - 199 mg/dL [facility] [...] interpretive data was last revised 2017. Calcium 8.7 8.5 - 10.3 mg/dL [facility] Blood 09/07/2021 8:41 PM CDT 09/07/2021 9:23 PM CDT us Sagar Moreno MD LAB BLOOD ORDERABLES Final Res ult [facility] Department [place] [address] * (ABNORMAL) CBC with auto differential (09/07/2021 8:41 PM CDT) Pathologist [facility] WBC 9.9 3.8 - 9.9 K/cumm [facility] Hgb 7.0(L) 11.9 - 15.5 g/dL [facility] Hct 22.3(L) 35.6 - 45.5 % [facility] Plt 246 150 - 400 K/cumm [facility] MPV 11.4 9.1 - 12.3 fL [facility] RBC 2.39(L) 3.90 - 5.20 M/cumm [facility] MCV 93.3 81.3 - 96.4 fL [facility] MCH 29.3 27.1 - 33.3 pg [facility] MCHC 31.4(L) 32.3 - 35.7 g/dL [facility] RDW CV 15.9(H) 11.1 - 14.9 % [facility] RDW SD 53.8(H) 35.7 - 48.1 fL [facility] NRBC abs 0.00 0.00 - 0.01 K/cumm [facility] Blood 09/07/2021 8:41 PM CDT 09/07/2021 9:23 PM CDT us Sagar Moreno MD LAB BLOOD ORDERABLES Final Res ult [facility] [place] [address] * (ABNORMAL) POCT glucose (09/07/2021 8:11 PM CDT) Pathologist [facility] Glucose, POC 264(H) 70 - 199 mg/dL [facility] Blood 09/07/2021 8:11 PM CDT 09/07/2021 8:11 PM CDT us Yaniv Barton MD LAB POCT ORDERABLES - DEVICE Fin al Result [facility] [address] * (ABNORMAL) POCT glucose (09/07/2021 5:08 PM CDT) Glucose, POC 249(H) 70 - 199 mg/dL [facility] Blood 09/07/2021 5:08 PM CDT 09/07/2021 5:08 PM CDT Yaniv Barton MD LAB POCT ORDERABLES - DEVICE Fin al Result Performing Organization Address [facility] [place] [place] [address] * (ABNORMAL) POCT glucose (09/07/2021 12:40 PM CDT) Glucose, POC 246(H) 70 - 199 mg/dL [facility] Blood 09/07/2021 12:4 0 PM CDT 09/07/2021 12:40 PM CDT Yaniv Barton MD LAB POCT ORDERABLES - DEVICE Fin al Result Performing Organization Address [facility] [place] [place] [address] * (ABNORMAL) Ferritin (09/07/2021 11:24 AM CDT) Ferritin 179(H) 13 - 150 ng/mL [facility] Blood 09/07/2021 11:2 4 AM CDT 09/07/2021 12:27 PM CDT Yaniv Barton MD LAB BLOOD ORDERABLES Final Resul t Performing Organization Address [facility] Co de Phone Number [facility] [address] * (ABNORMAL) eGFR (09/07/2021 11:24 AM CDT) eGFR 28(L) 90 - 130 mL/min/1. 73 m2 [facility] Comment: Interpretive Data Reference Interval Normal ?>/= [...] interpretive data was last reviewed 2021. Blood 09/07/2021 11:2 4 AM CDT 09/07/2021 12:27 PM CDT us Yaniv Barton MD LAB BLOOD ORDERABLES Final Resul t [facility] Department [place] [address] * (ABNORMAL) Basic metabolic panel, serum (09/07/2021 11:24 AM CDT) Sodium 144 135 - 145 mmol/L [facility] Potassium, sr 4.5 3.6 - 5.2 mmol/L [facility] Chloride 109 97 - 110 mmol/L [facility] CO2 26 22 - 32 mmol/L [facility] Anion gap 9 2 - 15 mmol/L [facility] BUN 41(H) 8 - 25 mg/dL [facility] Creatinine 1.91(H) 0.60 - 1.10 mg/dL [facility] Glucose 225(H) 70 - 199 mg/dL [facility] 10.3 mg/dL [facility] Blood 09/07/2021 11:2 4 AM CDT 09/07/2021 12:25 PM CDT Yaniv Barton MD LAB BLOOD ORDERABLES Final Resul t Performing Organization Address City/[facility]/ZIP Co de Phone Number [facility] Department [place] [address] * (ABNORMAL) POCT glucose (09/07/2021 9:59 AM CDT) Glucose, POC 243(H) 70 - 199 mg/dL [facility] Blood 09/07/2021 9:59 AM CDT 09/07/2021 9:59 AM CDT Yaniv Barton MD LAB POCT ORDERABLES - DEVICE Fin al Result Performing Organization Address City/[facility]/ZIP Co de Phone Number [facility] Department [place] [address] * Urine culture Urine (09/07/2021 5:38 AM CDT) Report Final Report: Less than 100,000 colonies/mL (clinically insignificant growth based on current clinical standards) [facility] Organism (CLINICALLY INSIGNIFICANT GROWTH [facility] Urine 09/07/2021 5:38 AM CDT 09/07/2021 6:52 AM CDT Narrative [facility] - 09/08/2021 2:09 PM CDT Urine culture reflexed based upon urinalysis results. Testing performed by [facility] ([phone]) Sagar Moreno MD LAB MICROBIOLOGY - GENERAL ORD ERABLES Final Result Performing Organization Address [facility] Co de Phone Number [facility] [place] [address] * (ABNORMAL) Urinalysis, microscopic only (09/07/2021 5:38 AM CDT) WBC, ur >50(A) 0 - 5 /HPF [facility] RBC, ur 11-20(A) 0 - 2 /HPF [facility] Yeast, ur 4+(A) [facility] Hyaline casts, ur 6-10 0 - 10 /LPF [facility] Culture Reflex Comment Reflex to urine culture will be performed. [facility] Urine 09/07/2021 5:38 AM CDT 09/07/2021 6:22 AM CDT Sagar Moreno MD LAB URINE ORDERABLES Final Res ult [facility] [place] [address] * Urea nitrogen, urine, random (09/07/2021 5:38 AM CDT) Urea nitrogen, ur 487 mg/dL [facility] Comment: Interpretive Data No reference range established. Current interpretive data was last revised 2018. Urine 09/07/2021 5:38 AM CDT 09/07/2021 6:27 AM CDT Sagar Moreno MD LAB URINE ORDERABLES Final Res ult Performing Organization Address [facility] de Phone Number [facility] [address] * Creatinine, urine, random (09/07/2021 5:38 AM CDT) Creatinine Ur 82.9 mg/dL [facility] Comment: Interpretive Data No reference range established. Current interpretive data was last revised 2018. Urine 09/07/2021 5:38 AM CDT 09/07/2021 6:27 AM CDT Sagar Moreno MD LAB URINE ORDERABLES Final Res ult Performing Organization Address [facility] de Phone Number [facility] [address] * Sodium, urine, random (09/07/2021 5:38 AM CDT) Sodium, ur 65 mmol/L [facility] Comment: Interpretive Data No reference range established. Current interpretive data was last revised 2018. Urine (Urine, Clean Catch) 09/07/2021 5:38 AM CDT 09/07/2021 6:27 AM CDT Sagar Moreno MD LAB URINE ORDERABLES Final Res ult Performing Organization Address [facility] [place] [address] * (ABNORMAL) Urinalysis reflex to microscopic and culture Urine (09/07/2021 5:38 AM CDT) Color, ur Yellow Yellow [facility] Clarity, ur Turbid(A) Clear [facility] Specific gravity, ur 1.014 1.003 - 1.030 [facility] pH, urine 6.0 [facility] Protein, ur ql 2+(A) Negative [facility] Glucose, ur ql Trace(A) Negative [facility] Ketones, ur Negative Negative [facility] Bilirubin, ur Negative Negative [facility] Blood, ur 1+(A) Negative [facility] Urobilinogen, ur <2.0 <2.0 mg/dL [facility] Nitrite, ur Negative Negative [facility] Leukocyte esterase, ur 3+(A) Negative [facility] UA reflex comment Reflex to microscopic UA will be performed. [facility] Urine 09/07/2021 5:38 AM CDT 09/07/2021 6:22 AM CDT Narrative [facility] - 09/07/2021 6:28 AM CDT ?? Urine pH is affected by diet, medications, systemic acid-base disturbances, and renal tubular function. ??pH may affect urinary stone formation. ??For example, urine pH below 6.0 may help reduce the tendency for calcium phosphate stones and pH greater than 6.0 may reduce the tendency for uric acid stone formation. Source: [employer]. Last revised 07-02-2017 us Sagar Moreno MD LAB MICROBIOLOGY - GENERAL ORD ERABLES Final Result [facility] Department [place] [address] * (ABNORMAL) Differential, auto (09/07/2021 2:25 AM CDT) Neutrophil abs 6.8(H) 1.7 - 6.5 K/cumm [facility] Imm gran abs 0.0 0.0 - 0.1 K/cumm [facility] Lymphocyte abs 2.2 0.8 - 3.3 K/cumm [facility] Monocyte abs 0.7 0.2 - 0.8 K/cumm [facility] Eosinophil abs 0.2 0.0 - 0.5 K/cumm [facility] Basophil abs 0.0 0.0 - 0.1 K/cumm [facility] Neutrophil pct 67.9 % [facility] Comment: Interpretive Data Percent cell count reference ranges are not reported, since discordance with absolute values may lead to misinterpretation of CBC data. Current Interpretive Data was last revised on 2017. Imm gran pct 0.4 % [facility] Comment: Interpretive Data Percent cell count reference ranges are not reported, since discordance with absolute values may lead to misinterpretation of CBC data. Current Interpretive Data was last revised on 2017. Lymphocyte pct 22.2 % [facility] Comment: Interpretive Data Percent cell count reference ranges are not reported, since discordance with absolute values may lead to misinterpretation of CBC data. Current Interpretive Data was last revised on 2017. Monocyte pct 7.4 % [facility] Comment: Interpretive Data Percent cell count reference ranges are not reported, since discordance with absolute values may lead to misinterpretation of CBC data. Current Interpretive Data was last revised on 2017. Eosinophil pct 1.7 % [facility] Comment: Interpretive Data Percent cell count reference ranges are not reported, since discordance with absolute values may lead to misinterpretation of CBC data. Current Interpretive Data was last revised on 2017. Basophil pct 0.4 % [facility] Comment: Interpretive Data Percent cell count reference ranges are not reported, since discordance with absolute values may lead to misinterpretation of CBC data. Current Interpretive Data was last revised on 2017. Blood 09/07/2021 2:25 AM CDT 09/07/2021 2:57 AM CDT us Hattie Castro MD LAB BLOOD ORDERABLES Final Resul t [facility] Department of Laboratories [place], [place] [id number] * (ABNORMAL) Hemoglobin A1c (09/07/2021 2:25 AM CDT) Hgb A1C 8.4(H) 4.0 - 5.6 % [facility] Estimated Average Glucose 194 mg/dL [facility] Comment: The ADA recommends reporting an estimated Average Glucose (eAG) with all Hemoglobin A1c results using the equation derived from a study of 507 normal and diabetic adults. ??Minority populations were underrepresented and children were not included. ?? (Diabetes Care 2020; 43(S1): S66-S76). ??The eAG is not equivalent to a fasting glucose. Blood 09/07/2021 2:25 AM CDT 09/07/2021 2:57 AM CDT Hattie Castro MD LAB BLOOD ORDERABLES Final Resul t [facility] Department [place] [address] * (ABNORMAL) CBC with auto differential (09/07/2021 2:25 AM CDT) WBC 10.1(H) 3.8 - 9.9 K/cumm [facility] Hgb 7.1(L) 11.9 - 15.5 g/dL [facility] Hct 22.0(L) 35.6 - 45.5 % [facility] Plt 229 150 - 400 K/cumm [facility] MPV 11.3 9.1 - 12.3 fL [facility] RBC 2.42(L) 3.90 - 5.20 M/cumm [facility] MCV 90.9 81.3 - 96.4 fL [facility] MCH 29.3 27.1 - 33.3 pg [facility] MCHC 32.3 32.3 - 35.7 g/dL [facility] RDW CV 15.7(H) 11.1 - 14.9 % [facility] RDW SD 51.8(H) 35.7 - 48.1 fL [facility] NRBC abs 0.03(H) 0.00 - 0.01 K/cumm [facility] Blood 09/07/2021 2:25 AM CDT 09/07/2021 2:57 AM CDT Hattie Castro MD LAB BLOOD ORDERABLES Final Resul t Performing Organization Address [facility] Co de Phone Number [facility] [employer] [place] [address] * (ABNORMAL) POCT glucose (09/07/2021 2:23 AM CDT) Glucose, POC 237(H) 70 - 199 mg/dL [facility] Blood 09/07/2021 2:23 AM CDT 09/07/2021 2:23 AM CDT us Hattie Castro MD LAB POCT ORDERABLES - DEVICE Fin al Result Performing Organization Address [facility] Co de Phone Number [facility] [address] * (ABNORMAL) POCT glucose (09/07/2021 12:07 AM CDT) Glucose, POC 243(H) 70 - 199 mg/dL [facility] Blood 09/07/2021 12:0 7 AM CDT 09/07/2021 12:07 AM CDT us Hattie Castro MD LAB POCT ORDERABLES - DEVICE Fin al Result Performing Organization Address [facility] de Phone Number [facility] [place] [address] * POCT glucose (09/06/2021 8:02 PM CDT) Glucose, POC 187 70 - 199 mg/dL [facility] Blood 09/06/2021 8:02 PM CDT 09/06/2021 8:02 PM CDT us Hattie Castro MD LAB POCT ORDERABLES - DEVICE Fin al Result Performing Organization Address [facility] Co de Phone Number [facility] [place] [address] * Troponin I high-sensitivity 2-hour (09/06/2021 7:56 PM CDT) Trop I hs 4 <=17 ng/L [facility] Comment: Interpretive Data For further hscTnI resources including the diagnostic algorithm and an aid in interpretation, copy and paste this link: https://bjhlab.testcatalog.org/show/hsTrop-1 Current Interpretive Data last revised 2020. Trop I hs delta -1 ng/L [facility] Trop I hs interp Insignificant [facility] Blood 09/06/2021 7:56 PM CDT 09/06/2021 8:09 PM CDT Demetri Del Toro NP LAB BLOOD ORDERABLES Final Result [facility] [place] [address] * XR Chest Pa Lateral 2 Views (09/06/2021 5:52 PM CDT) Anatomical Region Laterality Modality Body, Chest N/A Computed Radiogr aphy 09/06/2021 6:06 PM CDT Impressions 09/06/2021 9:20 PM CDT Minimally increased small right pleural effusion with mild right basilar atelectasis. ??No left pleural effusion. No pneumothorax. Cardiomediastinal silhouette is stable. Dictated by: Luan Colunga M.D. The radiology attending physician has personally reviewed this study, and had reviewed and/or edited this written report and agrees with it. Electronically signed by: Luci Faith M.D. Narrative 09/06/2021 9:20 PM CDT EXAMINATION: XR CHEST PA LATERAL 2 VIEWS HISTORY: Peripheral edema COMPARISON: 09/02/2021 Procedure Note Luci Faith MD - 09/06/2021 EXAMINATION: XR CHEST PA LATERAL 2 VIEWS HISTORY: Peripheral edema COMPARISON: 09/02/2021 IMPRESSION: Minimally increased small right pleural effusion with mild right basilar atelectasis. No left pleural effusion. No pneumothorax. Cardiomediastinal silhouette is stable. Dictated by: Luan Colunga M.D. The radiology attending physician has personally reviewed this study, and had reviewed and/or edited this written report and agrees with it. Electronically signed by: Luci Faith M.D. Demetri Del Toro RUG UNDERLAY MACHINE OPERATOR IMG XR PROCEDURES Fin al Result * ECG 12-LEAD (09/06/2021 5:48 PM CDT) Narrative [facility] - 09/06/2021 5:48 PM CDT Audie Austin MD ? 09/06/2021 ??5:49 PM ECG 12 lead Date/Time: 09/06/2021 5:48 PM Performed by: Audie Austin MD Authorized by: Demetri Del Toro IV, NP Rate: ??ECG rate: ??87 Comments: ?? Normal axis normal sinus rhythm. ??Rate 87. No STEMI. ??No change from previous which was done on August 08, 2021. ??Further workup in the ER. Demetri Del Toro RUG UNDERLAY MACHINE OPERATOR ECG ORDERABLES Final Result [facility] * Troponin I high-sensitivity series (baseline, 2hr, 4hr, 6hr) (09/06/2021 5:27 PM CDT) Trop I hs 5 <=17 ng/L [facility] Comment: Interpretive Data For further hscTnI resources including the diagnostic algorithm and an aid in interpretation, copy and paste this link: https://bjhlab.testcatalog.org/show/hsTrop-1 Current Interpretive Data last revised 2020. Blood 09/06/2021 5:27 PM CDT 09/06/2021 5:31 PM CDT Demetri Del Toro NP LAB BLOOD ORDERABLES Final Result [facility] Department [place] [address] * POCT glucose (09/06/2021 2:44 PM CDT) Glucose, POC 167 70 - 199 mg/dL [facility] Blood 09/06/2021 2:44 PM CDT 09/06/2021 2:44 PM CDT us Notinfile Unknown LAB POCT ORDERABLES - DEVICE F inal Result [facility] [place] [address] documented in this encounter Visit Diagnoses Diagnosis Volume overload- Primary Fluid overload Hypervolemia, unspecified hypervolemia type STEFANO (acute kidney injury) (HCC) Anemia due to stage 4 chronic kidney disease (CMS/HCC) (HCC) Other hypervolemia Late onset Alzheimer's dementia without behavioral disturbance (HCC) Schizoaffective disorder, bipolar type (CMS/HCC) (HCC) Schizoaffective disorder, unspecified condition Iron deficiency anemia due to chronic blood loss Iron deficiency anemia secondary to blood loss (chronic) Acute renal failure superimposed on stage 4 chronic kidney disease, unspecified acute renal failure type (HCC) Acute renal failure superimposed on stage 4 chronic kidney disease (CMS/HCC) (HCC) Dementia (HCC) Other persistent mental disorders due to conditions classified elsewhere Type 2 diabetes mellitus with diabetic neuropathy, with long-term current use of insulin (CMS/HCC) (HCC) Schizoaffective disorder, bipolar type (CMS/HCC) (HCC) Schizoaffective disorder, unspecified condition Anemia Unspecified anemia Diabetic neuropathy (HCC) Type II or unspecified type diabetes mellitus with neurological manifestations, not stated as uncontrolled Anemia, unspecified [...] fever greater than 38.3 C, Starting on 09/07/21 at 0107, Indications: Fever, PainIndications:Fever,Pain Given 09/17/2021 9:38 PM CDT 650 mg Given 09/17/2021 5:27 PM CDT 650 mg Given 09/15/2021 9:57 PM CDT 650 mg amLODIPine (NORVASC) tablet 10 mg 10 mg, oral, Daily, First dose on 09/07/21 at 0900 Given 09/12/2021 8:28 AM CDT 10 mg Given 09/11/2021 10:25 AM CDT 10 mg Given 09/10/2021 8:46 AM CDT 10 mg atorvastatin (LIPITOR) tablet 40 mg 40 mg, oral, Daily, First dose on 09/07/21 at 0900 Given 09/18/2021 8:58 AM CDT 40 mg Given 09/17/2021 8:45 AM CDT 40 mg Given 09/16/2021 9:05 AM CDT 40 mg capsaicin (ZOSTRIX) 0.025 % cream topical, 2 times daily PRN, pain, chest, Starting on 09/07/21 at 1330, Apply to affected area: chest carvediloL (COREG) tablet 12.5 mg 12.5 mg, oral, 2 times daily with meals (bkfst, dinner), First dose on Thu09/13/21 at 0845 Given 09/18/2021 8:57 AM CDT 12.5 mg Given 09/17/2021 4:25 PM CDT 12.5 mg Given 09/17/2021 8:45 AM CDT 12.5 mg dextrose (D10W) 10% bolus 250 mL 250 mL, intravenous, at 1,000 mL/hr, Administer over 15 Minutes, Every 15 min PRN, blood glucose less than 70 mg/dL and UNABLE to swallow/take PO glucose/juice., Starting on 09/07/21 at 0107, After treatment for hypoglycemia, recheck BG followed [...] glucose less than 70 mg/dL, Starting on 09/07/21 at 0107, If patient is alert and able to [...] Call MD for each episode of hypoglycemia. PUMP HOUSE TECHNICIAN STATES GLUTOSE-15 CONTAINS GLUCOSE 40% W/W (50% W/V), Indications: hypoglycemic disorderIndications:hypoglycemic disorder famotidine (PEPCID) tablet 20 mg 20 mg, oral, Daily, First dose on 09/07/21 at 0900 Given 09/18/2021 8:57 AM CDT 20 mg Given 09/17/2021 8:45 AM CDT 20 mg Given 09/16/2021 9:04 AM CDT 20 mg ferrous sulfate tablet 325 mg 325 mg (65 mg of elemental iron), oral, Daily with breakfast, First dose on 09/08/21 at 1315, Indications: Iron Deficiency AnemiaIndications:Iron Deficiency Anemia Given 09/18/2021 8:58 AM CDT 325 mg Given 09/17/2021 8:45 AM CDT 325 mg Given 09/16/2021 9:04 AM CDT 325 mg furosemide (LASIX) 10 mg/mL injection 20 mg 20 mg, intravenous, Once, On Thu09/06/21 at 1621, For 1 dose, For IV push: administer doses < 160 mg at a rate of 20 -40 mg/min. Doses >/= 160 mg should be administered no faster than 4 mg/min. Room temperature only Given 09/06/2021 4:4 2 PM CDT 20 mg furosemide (LASIX) 10 mg/mL injection 40 mg 40 mg, intravenous, Once, On 09/07/21 at 1330, For 1 dose, For IV push: administer doses < 160 mg at a rate of 20 -40 mg/min. Doses >/= 160 mg should be administered no faster than 4 mg/min. Room temperature only Given 09/07/2021 1:4 0 PM CDT 40 mg furosemide (LASIX) 10 mg/mL injection 40 mg 40 mg, intravenous, 2 times daily (for diuretics), First dose (after last modification) on Sun /20/22 at 0900, Room temperature only, Indications: Dyspnea, On hold since Thu09/13/2021 at 1544 until manually unheldIndications:Dyspnea Given 09/13/2021 9:45 AM CDT 40 mg Given 09/12/2021 4:57 PM CDT 40 mg Given 09/12/2021 8:27 AM CDT 40 mg furosemide (LASIX) 10 mg/mL injection 40 mg 40 mg, intravenous, Every 12 hours scheduled, First dose on 09/14/21 at 1245, For IV push: administer doses < 160 mg at a rate of 20 -40 mg/min. Doses >/= 160 mg should be administered no faster than 4 mg/min. Room temperature only Given 09/17/2021 8:45 AM CDT 40 mg Given 09/16/2021 7:53 PM CDT 40 mg Given 09/16/2021 9:05 AM CDT 40 mg furosemide (LASIX) tablet 40 mg 40 mg, oral, Daily, First dose on Thu09/14/21 at 1030, Indications: Renal Disease with EdemaIndications:Renal Disease with Edema Given 09/14/2021 11:39 AM CDT 4 0 mg furosemide (LASIX) tablet 40 mg 40 mg, oral, 2 times daily (for diuretics), First dose on Thu09/17/21 at 1600 Given 09/18/2021 8:57 AM CDT 40 mg Given 09/17/2021 4:25 PM CDT 40 mg heparin 5,000 unit/mL injection 5,000 Units 5,000 Units, subcutaneous, Every 8 hours scheduled, First dose on 09/07/21 at 0145, Indications: Deep Vein Thrombosis PreventionIndications:Deep Vein Thrombosis Prevention Given 09/18/2021 1:52 PM CDT 5,000 Units Left Upper Abdomen Given 09/18/2021 5:56 AM CDT 5,000 Units L eft Lower Abdomen Given 09/17/2021 9:38 PM CDT 5,000 Units L eft Upper Abdomen insulin glargine (LANTUS, SEMGLEE) 100 unit/mL injection 18 Units 18 Units (rounded from 18.325 Units = 0.25 Units/kg ? 73.3 kg), subcutaneous, Nightly, First dose (after last modification) on 09/07/21 at 0845, Do not hold if NPO. Do not mix with other insulins, Indications: Diabetes MellitusIndications:Diabetes Mellitus Given 09/07/2021 8:27 PM CDT 18 Units Left Upper Arm Given 09/07/2021 10:27 AM CDT 18 Units L eft Upper Arm insulin glargine (LANTUS, SEMGLEE) 100 unit/mL injection 22 Units 22 Units, subcutaneous, Nightly, First dose (after last modification) on Thu09/08/21 at 2100, Do not hold if NPO. Do not mix with other insulins, Indications: Diabetes MellitusIndications:Diabetes Mellitus Given 09/08/2021 8:56 PM CDT 22 Units Left Lower Abdomen insulin glargine (LANTUS, SEMGLEE) 100 unit/mL injection 24 Units 24 Units, subcutaneous, Nightly, First dose (after last modification) on 09/09/21 at 2100, Do not hold if NPO. Do not mix with other insulins, Indications: Diabetes MellitusIndications:Diabetes Mellitus Given 09/10/2021 10:00 PM CDT 24 Units Left Upper Arm Given 09/09/2021 9:32 PM CDT 24 Units Le ft Lower Abdomen insulin glargine (LANTUS, SEMGLEE) 100 unit/mL injection 25 Units 25 Units, subcutaneous, Nightly, First dose (after last modification) on Thu09/11/21 at 2100, Do not hold if NPO. Do not mix with other insulins, Indications: Diabetes MellitusIndications:Diabetes Mellitus Given 09/17/2021 9:38 PM CDT 25 Units Left Upper Abdomen Given 09/16/2021 7:54 PM CDT 25 Units Le ft Upper Abdomen Given 09/15/2021 9:57 PM CDT 25 Units Le ft Upper Abdomen insulin lispro (HumaLOG, ADMELOG) 100 unit/mL injection 0-10 Units 0-10 Units, subcutaneous, 3 times daily with meals, First dose on 09/07/21 at 0800, Blood glucose mg/dL: 149 or [...] NPO Status, Indications: Diabetes MellitusIndications:Diabetes Mellitus Given 09/18/2021 1:52 PM CDT 2 Units Left Lower Abdomen Given 09/18/2021 8:58 AM CDT 2 Units Le ft Lower Abdomen Given 09/17/2021 6:52 PM CDT 4 Units Le ft Lower Abdomen insulin lispro (HumaLOG, ADMELOG) 100 unit/mL injection 0-5 Units 0-5 Units, subcutaneous, Nightly, First dose on 09/07/21 at 2100, Blood glucose mg/dL: 149 or [...] NPO Status, Indications: Diabetes MellitusIndications:Diabetes Mellitus Given 09/17/2021 9:38 PM CDT 3 Units Left Upper Arm Given 09/16/2021 8:28 PM CDT 2 Units Le ft Upper Arm Given 09/15/2021 10:10 PM CDT 2 Units L eft Upper Abdomen insulin lispro (HumaLOG, ADMELOG) 100 unit/mL injection 5 Units 5 Units, subcutaneous, 3 times daily with meals, First dose on 09/07/21 at 0800, If BG greater than or [...] 70 mg/dL., Indications: Diabetes MellitusIndications:Diabetes Mellitus Given 09/08/2021 9:03 AM CDT 5 Units Left Lower Abdomen Given 09/07/2021 5:29 PM CDT 5 Units Le ft Upper Abdomen Given 09/07/2021 12:59 PM CDT 5 Units L eft Upper Arm insulin lispro (HumaLOG, ADMELOG) 100 unit/mL injection 7 Units 7 Units, subcutaneous, 3 times daily with meals, First dose (after last modification) on Thu09/08/21 at 1800, If BG greater than or [...] 70 mg/dL., Indications: Diabetes MellitusIndications:Diabetes Mellitus Given 09/09/2021 10:03 AM CDT 7 Units Righ t Upper Arm Given 09/08/2021 5:26 PM CDT 7 Units Ri ght Upper Arm insulin lispro (HumaLOG, ADMELOG) 100 unit/mL injection 8 Units 8 Units, subcutaneous, 3 times daily with meals, First dose (after last modification) on Thu09/09/21 at 1200, If BG greater than or [...] 70 mg/dL., Indications: Diabetes MellitusIndications:Diabetes Mellitus Given 09/18/2021 1:51 PM CDT 8 Units Left Lower Abdomen Given 09/18/2021 8:58 AM CDT 8 Units Le ft Lower Abdomen Given 09/17/2021 6:52 PM CDT 8 Units Le ft Lower Abdomen Lactated Ringer's (LR) infusion 100 mL/hr, intravenous, Continuous, Starting on Thu09/09/21 at 0845, For 5 hours, New Bag 09/09/2021 8:50 AM CDT 100 mL/hr 100 mL/hr Lactated Ringer's (LR) infusion 100 mL/hr, intravenous, Continuous, Starting on Thu09/09/21 at 1600, For 10 hours, New Bag 09/09/2021 3:53 PM CDT 100 mL/hr 100 mL/hr metOLazone (ZAROXOLYN) tablet 2.5 mg 2.5 mg, oral, Daily, First dose on Thu09/13/21 at 1615, Indications: Renal Disease with EdemaIndications:Renal Disease with Edema Given 09/14/2021 9:29 AM CDT 2.5 mg Given 09/13/2021 6:42 PM CDT 2.5 mg metOLazone (ZAROXOLYN) tablet 2.5 mg 2.5 mg, oral, Daily, First dose (after last reorder) on Thu09/15/21 at 0900, Indications: Renal Disease with EdemaIndications:Renal Disease with Edema Given 09/16/2021 9:05 AM CDT 2.5 mg Given 09/15/2021 9:03 AM CDT 2.5 mg polyethylene glycol (MIRALAX) packet 17 g 17 g, oral, Daily, First dose on 09/07/21 at 0900, Indications: constipationIndications:constipation Given 09/17/2021 8:46 AM CDT 17 g Given 09/16/2021 9:04 AM CDT 17 g Given 09/15/2021 9:21 AM CDT 17 g pregabalin (LYRICA) capsule 150 mg 150 mg, oral, Daily, First dose on 09/07/21 at 0900 Given 09/18/2021 8:57 AM CDT 150 mg Given 09/17/2021 8:45 AM CDT 150 mg Given 09/16/2021 9:04 AM CDT 150 mg risperiDONE (RisperDAL) tablet 2 mg 2 mg, oral, Nightly, First dose on 09/07/21 at 2100 Given 09/17/2021 9:38 PM CDT 2 mg Given 09/16/2021 7:53 PM CDT 2 mg Given 09/15/2021 9:57 PM CDT 2 mg documented in this encounter Discontinued Medications Medication Sig Discontinue Reason Start Date End Da te omeprazole (PriLOSEC) 20 mg capsuleIndications:[place] roesophageal reflux disease, unspecified whether esophagitis present Take 1 capsule (20 mg total) by mouth daily 06/13/2021 09/06/2021 meclizine (ANTIVERT) 25 mg tablet 08/04/2021 09/06/2021 [id number] METHasone (MAXITROL) 3.5mg/mL-10,000 unit/mL-0.1 % ophthalmic suspension Stop Taking at Discharge 05/24/2021 09/18/2021 famotidine (PEPCID) 40 mg tabletIndications:Gastr oesophageal reflux disease, unspecified whether esophagitis present Take 1 tablet (40 mg total) by mouth daily Stop Taking at Discharge 07/02/2021 09/18/2021 insulin lispro (HumaLOG, ADMELOG) 100 unit/mL vial for injectionIndications:Di abetes Mellitus Inject 5.31 Units under the skin 3 (three) times a day with meals Stop Taking at Discharge 08/13/2021 09/18/2021 insulin lispro (HumaLOG, ADMELOG) 100 unit/mL vial for injectionIndications:Di abetes Mellitus Inject 0-10 Units under the skin 3 (three) times a day with meals Stop Taking at Discharge 08/13/2021 09/18/2021 insulin lispro (HumaLOG, ADMELOG) 100 unit/mL vial for injectionIndications:Di abetes Mellitus Inject 0-5 Units under the skin nightly Stop Taking at Discharge 08/13/2021 09/18/2021 insulin glargine (LANTUS, SEMGLEE) 100 unit/mL vial for injectionIndications:Di abetes Mellitus Inject 18 Units under the skin nightly Stop Taking at Discharge 08/14/2021 09/18/2021 documented as of this encounter Active and Recently Administered Medications Times are shown in CDT. Scheduled Medication Order 09/16/2021 09/17/2021 09/18/2021 atorvastatin (LIPITOR) tablet 40 mg 40 mg, oral, Daily, First dose on Thu09/07/21 at 0900 0905 (Given - Provider: Macey Stafford RN) 0845 (Given - Provider: Sumeet Sams, ALIREZA) 0858 (Given - Provider: Sumeet Sams, ALIREZA) carvediloL (COREG) tablet 12.5 mg 12.5 mg, oral, 2 times daily with meals (bkfst, dinner), First dose on Thu09/13/21 at 0845 0904 (Given - Provider: Macey Stafford RN)1810 (Given - Provider: Macey Stafford RN) 0845 (Given - Provider: Sumeet Sams RN)1625 (Given - Provider: Sumeet Sams RN) 0857 (Given - Provider: Sumeet Sams RN)1800 (Due) famotidine (PEPCID) tablet 20 mg 20 mg, oral, Daily, First dose on Thu09/07/21 at 0900 0904 (Given - Provider: Macey Stafford RN) 0845 (Given - Provider: Sumeet Sams RN) 0857 (Given - Provider: Sumeet Sams RN) ferrous sulfate tablet 325 mg 325 mg (65 mg of elemental iron), oral, Daily with breakfast, First dose on Thu09/08/21 at 1315, Indications: Iron Deficiency Anemia 0904 (Given - Provider: Macey Stafford RN) 0845 (Given - Provider: Sumeet Sams RN) 0858 (Given - Provider: Sumeet Sams RN) furosemide (LASIX) 10 mg/mL injection 40 mg (CANCELED) 40 mg, intravenous, Every 12 hours scheduled, First dose on 09/14/21 at 1245, For IV push: administer doses < 160 mg at a rate of 20 -40 mg/min. Doses >/= 160 mg should be administered no faster than 4 mg/min. Room temperature only 0905 (Given - Provider: Macey Stafford RN)1953 (Given - Provider: Jack Austin RN) 0845 (Given - Provider: Sumeet Sams RN) furosemide (LASIX) tablet 40 mg 40 mg, oral, 2 times daily (for diuretics), First dose on Thu09/17/21 at 1600 1625 (Given - Provider: Sumeet Sams RN) 0857 (Given - Provider: Sumeet Sams RN)1600 (Due) heparin 5,000 unit/mL injection 5,000 Units 5,000 Units, subcutaneous, Every 8 hours scheduled, First dose on 09/07/21 at 0145, Indications: Deep Vein Thrombosis Prevention 0632 (Given - Provider: Jack Austin, ALIREZA)1444 (Given - Provider: Macey Stafford RN)2009 (Given - Provider: Jack Austin RN) 0642 (Given - Provider: Jack Austin RN)1331 (Given - Provider: Sumeet Sams, RN)2138 (Given - Provider: Jesús Spencer RN) 0556 (Given - Provider: Jesús Spencer RN)1352 (Given - Provider: Sumeet Sams, RN) insulin glargine (LANTUS, SEMGLEE) 100 unit/mL injection 25 Units 25 Units, subcutaneous, Nightly, First dose (after last modification) on Thu09/11/21 at 2100, Do not hold if NPO. Do not mix with other insulins, Indications: Diabetes Mellitus 1953 (Given - Provider: Jack Austin RN) 2137 (Given - Provider: Jesús Spencer, ALIREZA) insulin lispro (HumaLOG, ADMELOG) 100 unit/mL injection 0-10 Units 0-10 Units, subcutaneous, 3 times daily with meals, First dose on 09/07/21 at 0800, Blood glucose mg/dL: 149 or [...] hold for NPO Status, Indications: Diabetes Mellitus 0916 (Given - Provider: Macey Stafford RN)1224 (Given - Provider: Macey Stafford RN)1810 (Given - Provider: Macey Stafford RN) 0844 (Given - Provider: Sumeet Smas, ALIREZA)1331 (Given - Provider: Sumeet Sams, RN)1852 (Given - Provider: Sumeet Sams, RN) 0858 (Given - Provider: Sumeet Sams, RN)1352 (Given - Provider: Sumeet Sams, RN)1800 (Due) insulin lispro (HumaLOG, ADMELOG) 100 unit/mL injection 0-5 Units 0-5 Units, subcutaneous, Nightly, First dose on Thu09/07/21 at 2100, Blood glucose mg/dL: 149 or [...] hold for NPO Status, Indications: Diabetes Mellitus 2027 (Given - Provider: Jack Austin RN) 2137 (Given - Provider: Jesús Spencer RN) insulin lispro (HumaLOG, ADMELOG) 100 unit/mL injection 8 Units 8 Units, subcutaneous, 3 times daily with meals, First dose (after last modification) on 09/09/21 at 1200, If BG greater than or [...] less than 70 mg/dL., Indications: Diabetes Mellitus 0915 (Given - Provider: Macey Stafford RN)1224 (Given - Provider: Macey Stafford RN)1810 (Given - Provider: Macey Stafford RN) 0844 (Given - Provider: Sumeet Sams, ALIREZA)1331 (Given - Provider: Sumeet Sams, ALIREZA)1852 (Given - Provider: Sumeet Sams, ALIREZA) 0858 (Given - Provider: Sumeet Sams, ALIREZA)1351 (Given - Provider: Sumeet Sams, ALIREZA)1800 (Due) metOLazone (ZAROXOLYN) tablet 2.5 mg (CANCELED) 2.5 mg, oral, Daily, First dose (after last reorder) on 09/15/21 at 0900, Indications: Renal Disease with Edema 09 (Given - Provider: Macey Stafford, ALIREZA) polyethylene glycol (MIRALAX) packet 17 g 17 g, oral, Daily, First dose on 09/07/21 at 0900, Indications: constipation 0904 (Given - Provider: Macey Stafford RN) 0846 (Given - Provider: Sumeet Sams, ALIREZA) 1131 (Not Given - Provider: Sumeet Sams RN - Reason: Change in Patient Status) pregabalin (LYRICA) capsule 150 mg 150 mg, oral, Daily, First dose on 09/07/21 at 0900 0904 (Given - Provider: Macey Stafford RN) 0845 (Given - Provider: Sumeet Sams, ALIREZA) 0857 (Given - Provider: Sumeet Sams RN) risperiDONE (RisperDAL) tablet 2 mg 2 mg, oral, Nightly, First dose on 09/07/21 at 2100 1953 (Given - Provider: Jack Austin RN) 213 (Given - Provider: Jesús Spencer RN) PRN Medication Order 09/16/2021 09/17/2021 09/18/2021 acetaminophen (TYLENOL) tablet 650 mg 650 mg, oral, Every 4 hours PRN, 1st line for pain, fever, fever greater than 38.3 C, Starting on 09/07/21 at 0107, Indications: Fever, Pain 1727 (Given - Provider: Sumeet Sams RN)2137 (Given - Provider: Jesús Spencer RN) capsaicin (ZOSTRIX) 0.025 % cream topical, 2 times daily PRN, pain, chest, Starting on 09/07/21 at 1330, Apply to affected area: chest dextrose (D10W) 10% bolus 250 mL(Linked Group 1) 250 mL, intravenous, at 1,000 mL/hr, Administer over 15 Minutes, Every 15 min PRN, blood glucose less than 70 mg/dL and UNABLE to swallow/take PO glucose/juice., Starting on 09/07/21 at 0107, After treatment for hypoglycemia, recheck BG followed [...] glucose less than 70 mg/dL, Starting on 09/07/21 at 0107, If patient is alert and able to [...] Call MD for each episode of hypoglycemia. PUMP HOUSE TECHNICIAN STATES GLUTOSE-15 CONTAINS GLUCOSE 40% W/W (50% W/V), Indications: hypoglycemic disorder glucagon injection 1 mg 1 mg, intramuscular, Every 30 min PRN, low blood sugar, blood glucose less than 70 mg/dL AND no IV access AND unable to take PO glucose/juice., Starting on 09/07/21 at 0107, After Glucagon is administered, position patient on [...] reconstitution. Linked Groups Order Group 1: dextrose (GLUTOSE) 40 % gel 15 gJump to med 15 g, oral, Every 15 min PRN, low blood sugar, blood glucose less than 70 mg/dL, Starting on 09/07/21 at 0107, If patient is alert and able to [...] Call MD for each episode of hypoglycemia. PUMP HOUSE TECHNICIAN STATES GLUTOSE-15 CONTAINS GLUCOSE 40% W/W (50% W/V), Indications: hypoglycemic disorder Or dextrose (D10W) 10% bolus 250 mLJump to med 250 mL, intravenous, at 1,000 mL/hr, Administer over 15 Minutes, Every 15 min PRN, blood glucose less than 70 mg/dL and UNABLE to swallow/take PO glucose/juice., Starting on 09/07/21 at 0107, After treatment for hypoglycemia, recheck BG followed [...] Count Last Ordered Date First Ordered Date influenza quadrivalent 2020- 2021 (FLUZONE HIGH DOSE) 240 mcg/0.7 mL vaccine (HIGH DOSE age 65 years and up) 0.7 mL 1 09/12/2021 capsaicin (ZOSTRIX) 0.025 % cream 2 022 dextrose (D10W) 10% bolus 250 mL 1 09/08/19 dextrose (GLUTOSE) 40 % gel 15 g 1 09/08/19 furosemide (LASIX) 10 mg/mL injection 20 mg 1 09/07/2021 glucagon injection 1 mg 1 09/07/2021 insulin glargine (LANTUS, SE MGLEE) 100 unit/mL injection 18 Units 1 09/07/2021 Lab Orders Without Results Count Last Ordered D ate First Ordered Date POCT GLUCOSE DEVICE 39 09/18/2021 09/07/19 22 ALBUMIN 1 09/13/2021 BASIC METABOLIC PANEL 1 09/07/2021 FERRITIN 1 09/07/2021 Nursing Count Last Ordered Date First Orde red Date WEIGH PATIENT 1 09/07/2021 Consult Count Last Ordered Date First Orde red Date IP CONSULT TO NUTRITION SERVICES 2 09/15/19 22 09/07/2021 IP CONSULT TO NEPHROLOGY 1 09/12/2021 IP CONSULT TO VASCULAR ACCESS TEAM 1 2021 IV Count Last Ordered Date First Orde red Date SALINE LOCK IV 1 09/06/2021 Case Request Count Last Ordered Date First Orde red Date GI DIRECT ACCESS CASE REQUEST 1 09/18/2021 ADT Patient Update Count Last Ordered Date Firs t Ordered Date ED IP DECISION TO ADMIT 1 09/06/2021 documented in this encounter Additional Health Concerns Infection Onset Date Last Indicated Resolved Time COVID: Recovered Comment:Added based on recent COVID infection. 08/24/2021 08/26/2021 12/22/2021 3:05 AM C DT documented as of this encounter Care Teams Lime Spreader Relationship Specialty Start Date End Date Cherelle Corcoran MD PCP - General Family Medicine 08/30/19 Mark Queen MD Consulting Physician Infectious Diseases 01/10/20 documented as of this encounter
--- OUTSIDE RECORDS SUMMARY | 2024-07-04 04:17 | XMS_ITS | Encounter Summary ---
Author Organization [facility] Healthcare Address [address] [place] [address] Care Team Providers Care Sausage Canner Name Role Phone Cherelle Corcoran MD Primary Care Pro vider Mark Queen MD Unavailable [phone] Encounter Details Date Type Department Care Team (Late st Contact Info) Description 09/06/2021 10:30 AM CDT Lab [facility] [address] [place] [id number] Swelling Social History Tobacco Use Types Packs/Day Years Used Date Smoking Tobacco: Never Smokeless Tobacco: Never Alcohol Use Standard Drinks/Week Comments Not Currently 0 (1 standard drink = 0.6 oz pur e alcohol) Social Connection and Isolation Panel [NHANES] A nswer Date Recorded In a typical week, how many times do you talk on the phone with family, friends, or neighbors? Patient declined 09/09/2021 How often do you get togethe r with friends or relatives? Patient declined 09/09/2021 How often do you attend temple or episcopalian serv ices? Patient declined 09/09/2021 Do you belong to any clubs o r organizations such as temple groups, unions, fraternal or athletic groups, or school groups? Patient declined 09/09/2021 How often do you attend meet ings of the clubs or organizations you belong to? Patient declined 09/09/2021 Are you , , di vorced, , never , or living with a partner? Patient declined 09/09/2021 AUDIT-C Answer Date Recorded Q1: How often [...] housing, medical care, and heating? Patient declined 09/09/2021 PHQ-2 Answer Date Recorded PHQ-2 Total Score (If total score is 3 or more points, staff should administer the PHQ-9) 0 01/08/2021 Hunger Vital Sign Answer Date Recorded Within the past 12 months, y ou worried that your food would run out before you got the money to buy more. Patient declined Within the past 12 months, t he food you bought just didn't last and you didn't have money to get more. Patient declined PRAPARE - Transportation Answer Date Re corded In the past 12 months, has l ack of transportation kept you from medical appointments or from getting medications? Patient declined 09/09/2021 In the past 12 months, has l ack of transportation kept you from meetings, work, or from getting things needed for daily living? Patient declined 09/09/2021 Housing Stability Vital Sign Answer Fuentes e Recorded In the last 12 months, was t here a time when you were not able to pay the mortgage or rent on time? Patient refused 09/10/19 22 In the last 12 months, how many places have you lived? 0 09/09/2021 In the last 12 months, was t here a time when you did not have a steady place to sleep or slept in a halfway (including now)? Patient refused 09/09/2021 Comments No Sex and Gender Information Value Date Recorded Sex Assigned at Not on file Legal Sex Female 9:03 AM TUNNEL INSPECTOR Gender Identity Female 02/08/2020 6:39 PM CDT Sexual Orientation Not on file documented as of this encounter Plan of Treatment Upcoming Encounters Date Type Department Care Team (Latest Contact Info) Description 07/13/2024 9:00 AM TUNNEL INSPECTOR Hospital Encounter [facility] [address] [place] [address] Jaya Grier MD [address] [facility] [address] [place] [address] 07/13/2024 9:00 AM TUNNEL INSPECTOR - 07/13/2024 9:30 AM TUNNEL INSPECTOR Surgery [facility] [address] [place] [address] Jaya Grier MD [address] [facility] [address] [place] [address] ESOPHAGOGASTRODUODENOSCOPY Scheduled Procedures Name Priority Associated Diagnoses Date/Ti me ESOPHAGOGASTRODUODENOSCOPY Anemia, unspecified type Gastritis without bleeding, unspecified chronicity, unspecified gastritis type 07/13/2024 9:00 AM TUNNEL INSPECTOR COLONOSCOPY Iron deficiency anemia due to chronic blood loss documented as of this encounter Procedures Procedure Name Priority Date/Time Associated Diagnosis Comments EGFR STAT 09/06/2021 10:19 AM CDT Swelling PRO B-TYPE NATRIURETIC PEPTIDE STAT 09/06/2021 10:19 AM CDT Swelling COMPREHENSIVE METABOLIC PANEL STAT 09/06/2021 10:19 AM CDT Swelling documented in this encounter Results * eGFR (09/06/2021 10:19 AM CDT) eGFR 25 mL/min/1. 73 m2 [...] was last reviewed 2021. Testing performed by: [address] [address] Blood 09/06/2021 10:1 9 AM CDT 09/06/2021 10:30 AM CDT us Cherelle Corcoran MD LAB BLOOD ORDERAB LES Final Result [facility] [address] [facility] Department [place] [address] * (ABNORMAL) Comprehensive metabolic panel (09/06/2021 10:19 AM CDT) Sodium 143 135 - 145 mmol/L [facility] Comment:Testing performed by : [address] [address] Potassium, pl 4.6 3.3 - 4.9 mmol/L [facility] Comment:Testing performed by : [address] [address] Chloride 109 97 - 110 mmol/L [facility] Comment:Testing performed by : [address] [address] CO2 23 22 - 32 mmol/L [facility] Comment:Testing performed by : [address] [address] Anion gap 11 2 - 15 mmol/L [facility] Comment:Testing performed by : [address] [address] BUN 50(H) 8 - 25 mg/dL [facility] Comment:Testing performed by : [address] [address] Creatinine 2.10(H) 0.60 - 1.10 mg/dL [facility] Comment:Testing performed by : [address] [address] Glucose 247(H) 70 - 199 mg/dL [facility] Comment: Interpretive Data Fasting glucose >/= [...] was last revised 2017. Testing performed by: [address] [address] Calcium 9.1 8.5 - 10.3 mg/dL [facility] Comment:Testing performed by : [address] [address] Bilirubin, total 0.2 0.1 - 1.2 mg/dL [facility] Comment:Testing performed by : [address] [address] Protein, pl 7.1 6.5 - 8.5 g/dL [facility] Comment:Testing performed by : [address] [address] Albumin 3.6 3.5 - 5.0 g/dL [facility] Comment:Testing performed by : [address] [address] Alk phos 134(H) 40 - 130 Units/L [facility] Comment:Testing performed by : [address] [address] ALT 17 7 - 45 Units/L [facility] Comment:Testing performed by : [address] [place]., [address] AST 17 10 - 45 Units/L [facility] Comment:Testing performed by : [facility], [address] [place] [address]., [address] Blood 09/06/2021 10:1 9 AM CDT 09/06/2021 10:30 AM CDT us Cherelle Corcoran MD LAB BLOOD ORDERAB LES Final Result [facility] [address] [facility] [place] [address] * (ABNORMAL) Pro B-type natriuretic peptide (09/06/2021 [...] Last Revised Date: 2018. Testing performed by: [facility], [address] [place] [address]., [id number] Blood 09/06/2021 10:1 9 AM CDT 09/06/2021 10:30 AM CDT Cherelle Corcoran MD LAB BLOOD ORDERAB LES Final Result [facility] [address] [facility] Department [place] [address] documented in this encounter Visit Diagnoses Diagnosis Swelling Localized superficial swelling, mass, or lump Anemia, unspecified type Gastritis without bleeding, unspecified chronicity, unspecified gastritis type documented in this encounter Additional Health Concerns Infection Onset Date Last Indicated Resolved Time COVID: Recovered Comment:Added based on recent COVID infection. 08/24/2021 08/26/2021 12/22/2021 3:05 AM C DT documented as of this encounter Care Teams Sausage Canner Relationship Specialty Start Date End Date Cherelle Corcoran MD PCP - General Family Medicine 08/30/19 Mark Queen MD Consulting Physician Infectious Diseases 01/10/20 documented as of this encounter
--- OUTSIDE RECORDS SUMMARY | 2024-07-04 04:17 | XMS_ITS | Encounter Summary ---
Author Organization [facility] Address [address] [place] [address] Care Team Providers Care Meat Cutting Teacher Name Role Phone Cherelle Corcoran MD Primary Care Pro vider Mark Queen MD Unavailable [phone] Reason for Visit * Reason Comments Follow-up Med Management Encounter Details Date Type Department Care Team (Latest Contact Info) Description 08/19/2021 1:45 PM DIE CAST DIE MAKER Telemedicine [facility] Medical [facility] [address] [id number] [place] [id number] [address] Schizoaffective disorder, bipolar type (CMS/HCC) (HCC) (Primary Dx); Late onset Alzheimer's dementia without behavioral disturbance [...] on file Legal Sex Female 9:03 AM DIE CAST DIE MAKER Gender Identity Female 02/08/2020 6:39 PM CDT Sexual Orientation Not on file documented as of this encounter Progress Notes * Adryan Swenson MD - 08/19/2021 1:45 PM CST Images from the original note were not included. This was a telemedicine visit with Barbara Chakraborty alone which took place via real- time video connection with Zoom. During the visit, I was located at home in [place], [place], and the patient was located at home in the [facility]. Time started: 1:45 p.m. Time ended: 2:00 p.m. My total encounter time on 08/19/2021 was 20 minutes which was spent in [...] a telephone or video visit during [facility] to the patient. After being given an opportunity to ask questions about and discuss this type of visit, the patient verbally consented to proceeding with the telephone/video visit.The patient understands that this service replaces an office visit and they may be billed and/or responsible for any applicable copayments. Adryan Swenson MD Assessment/Plan Barbara Chakraborty is a 70 y.o. Black Or female. Diagnoses and all orders for this visit: Schizoaffective disorder, bipolar type (CMS/HCC) ([facility]) (Primary) Assessment & Plan: Chronic, persistent, but functioning at or close [...] and re-evaluate at next interval as discussed. Late onset Alzheimer's dementia without behavioral disturbance (HCC) Assessment & Plan: Chronic, stable. Alert, oriented to self, current place. Continue to monitor. Clock drawing test at next interval. Consideration for Aricept. Full informed consent provided by the patient [...] ID: Barbara Chakraborty is a 70 y.o. Black Or female. CHIEF COMPLAINT Chief Complaint Patient presents with ??? Follow-up ??? Med Management HISTORY OF PRESENT ILLNESS 70 y.o. female who is currently being seen for a follow-up appointment for psychiatric evaluation/treatment. The patient is prescribed the following medication (or medications): Current Outpatient Medications Medication Sig Dispense Refill ??? aspirin 325 mg tablet Take 325 mg by mouth every 6 (six) hours as needed for pain. Indications:pain ??? atorvastatin (LIPITOR) 40 mg tablet Take 1 tablet (40 mg total) by mouth daily 90 tablet 0 ??? docusate sodium (COLACE) 100 mg capsule Take 1 capsule (100 mg total) by mouth 2 (two) times a day as needed for constipation 180 capsule 1 ??? dulaglutide (TRULICITY) 3 mg/0.5 mL pen injector Inject 0.5 mL (3 mg total) under the skin oncea week 6 mL 0 ??? ferrous sulfate 325 mg (65 mg of elemental iron) tablet Take 1 tablet (325 mg total) by mouth daily with breakfast 30 tablet 11 ??? insulin glargine (LANTUS, BASAGLAR) 100 unit/mL (3 mL) pen for injection Inject 45 Units under the skin daily 5 pen 3 ??? lidocaine (LIDODERM) 5 % Place 1 patch on the skin daily Apply to painful area 12 hours per day, remove for 12 hours. 30 patch 1 ??? lisinopriL (PRINIVIL,ZESTRIL) 10 mg tablet Take 1 tablet (10 mg total) by mouth daily 90 tablet0 ??? meclizine (ANTIVERT) 25 mg tablet TK 1 T PO TID PRF DIZZINESS ??? multivitamin with minerals tablet Take 1 tablet by mouth daily ??? omeprazole (PriLOSEC) 20 mg capsule Take 1 capsule (20 mg total) by mouth daily 90 capsule 0 ??? OneTouch Verio test strips strip TEST 3 TO 4 TIMES DAILY 400 each 1 ??? pen needle, diabetic 32 gauge x 3/16 needle Use to inject basaglar nightly 100 each 1 ??? syringe with needle, insulin (INSULIN SYRINGE-NEEDLE U-100 MISC) 3 times a day No current facility-administered medications for this visit. Adherence to medication reported by the patient to be 100% The patient denies side effects possiblyrelated to these medications. 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 She went to the [place] on 24 Her appetite is not increasing. [...] after discharge. Awaiting blood cultures - had STFEANO - most recent Cr 2.2 Weights 141 [...] Associated poorly controlled diabetes. Only previous psychiatric [id number] or 1997. Records unavailable to me at [...] Denies any nicotine or cigarettes. Born in [place]. Father was reeves and alcoholic. Positive relationship [...] gets in her moods She worked in [email or web address] at [employer] and [employer] - daughter - provides collateral [...] MEDICAL HISTORY Past Medical History: Diagnosis Date ??? Arthritis ??? Depression ??? Diabetic neuropathy (CMS/HCC) (HCC) ??? Hyperlipidemia ??? Hypertension ??? Schizophrenia (HCC) ??? Type 2 diabetes mellitus (HCC) PAST SURGICAL HISTORY Past Surgical History: Procedure Laterality Date ??? SECTION Right right foot ??? TOE AMPUTATION Right 01/06/2020 4th toe amp/ foot debridement/ Dr. Anat Pelayo FAMILY HISTORY Family History Problem Relation Age of Onset ??? Stomach cancer Father SOCIAL HISTORY Social History Tobacco Use ??? Smoking status: Never Smoker ??? Smokeless tobacco: Never Used Substance Use Topics ??? Alcohol use: Not Currently ??? Drug use: Never LABS Lab Results Component Value Date WBC 10.1 (H) 08/09/2021 HGB 8.7 (L) 08/09/2021 HCT 28.4 (L) 08/09/2021 MCV 93.1 08/09/2021 RDWSD 52.3 (H) 08/09/2021 LABPLAT 294 08/09/2021 Lab Results Component Value Date ALT 32 08/07/2021 AST 21 08/07/2021 ALKPHOS 118 08/07/2021 BILITOT 0.2 08/07/2021 ALBUMIN 4.1 08/07/2021 Lab Results Component Value Date SODIUM 143 08/09/2021 POTASSIUM 4.0 08/09/2021 CO2 22 08/09/2021 BUNSER 29 (H) 08/09/2021 GLUCOSE 176 08/14/2021 CREATININE 1.65 (H) 08/09/2021 CHLORIDE 111 (H) 08/09/2021 CALCIUM 9.5 08/09/2021 PROTEIN 7.6 01/19/2017 Office Visit on 08/19/2021 Component Date Value ??? Glucose Blood, POC 08/19/2021 260 No results displayed because visit has over 200 results. Lab on 08/05/2021 Component Date Value ??? Albumin Ur 08/05/2021 2,763.2 ??? Creatinine Ur 08/05/2021 186.9 ??? Albumin Creatinine Ratio* 08/05/2021 1,478 (A) ??? Sodium 08/05/2021 144 ??? Potassium, pl 08/05/2021 4.3 ??? Chloride 08/05/2021 106 ??? CO2 08/05/2021 23 ??? Anion gap 08/05/2021 15 ??? BUN 08/05/2021 24 ??? Creatinine 08/05/2021 2.20 (A) ??? Glucose 08/05/2021 119 ??? Calcium 08/05/2021 9.5 ??? Bilirubin, total 08/05/2021 0.4 ??? Protein, pl 08/05/2021 7.8 ??? Albumin 08/05/2021 3.8 ??? Alk phos 08/05/2021 104 ??? ALT 08/05/2021 19 ??? AST 08/05/2021 26 ??? WBC 08/05/2021 9.7 ??? Hgb 08/05/2021 10.2 (A) ??? Hct 08/05/2021 32.7 (A) ??? Plt 08/05/2021 350 ??? MPV 08/05/2021 10.9 ??? RBC 08/05/2021 3.45 (A) ??? MCV 08/05/2021 94.8 ??? MCH 08/05/2021 29.6 ??? MCHC 08/05/2021 31.2 (A) ??? RDW CV 08/05/2021 15.0 (A) ??? RDW SD 08/05/2021 52.4 (A) ??? NRBC abs 08/05/2021 0.00 ??? Hgb A1C 08/05/2021 8.0 (A) ??? Estimated Average Glucose 08/05/2021 183 ??? Neutrophil abs 08/05/2021 7.2 (A) ??? Imm gran abs 08/05/2021 0.0 ??? Lymphocyte abs 08/05/2021 1.9 ??? Monocyte abs 08/05/2021 0.5 ??? Eosinophil abs 08/05/2021 0.1 ??? Basophil abs 08/05/2021 0.0 ??? Neutrophil pct 08/05/2021 74.7 ??? Imm gran pct 08/05/2021 0.2 ??? Lymphocyte pct 08/05/2021 19.5 ??? Monocyte pct 08/05/2021 4.8 ??? Eosinophil pct 08/05/2021 0.6 ??? Basophil pct 08/05/2021 0.2 ??? eGFR 08/05/2021 24 Lab on 02/07/2021 Component Date Value ??? Protein, ur, quant 02/07/2021 265.0 ??? Creatinine Ur 02/07/2021 48.3 ??? Protein/creatinine ratio 02/07/2021 5,486.5 (A) ??? Sodium 02/07/2021 143 ??? Potassium, pl 02/07/2021 3.8 ??? Chloride 02/07/2021 104 ??? CO2 02/07/2021 30 ??? Anion gap 02/07/2021 9 ??? BUN 02/07/2021 25 ??? Creatinine 02/07/2021 1.40 (A) ??? Glucose 02/07/2021 183 ??? Calcium 02/07/2021 9.5 ? ? Bilirubin, total 02/07/2021 <0.2 ??? Protein, pl 02/07/2021 7.0 ??? Albumin 02/07/2021 3.6 ??? Alk phos 02/07/2021 123 ??? ALT 02/07/2021 14 ??? AST 02/07/2021 16 ??? WBC 02/07/2021 8.8 ??? Hgb 02/07/2021 10.0 (A) ??? Hct 02/07/2021 31.5 (A) ??? Plt 02/07/2021 284 ??? MPV 02/07/2021 10.4 ??? RBC 02/07/2021 3.34 (A) ??? MCV 02/07/2021 94.3 ??? MCH 02/07/2021 29.9 ??? MCHC 02/07/2021 31.7 (A) ??? RDW CV 02/07/2021 14.1 ??? RDW SD 02/07/2021 48.9 (A) ??? NRBC abs 02/07/2021 0.00 ??? Hgb A1C 02/07/2021 8.4 (A) ??? Estimated Average Glucose 02/07/2021 194 ??? PTH 02/07/2021 36.0 ??? Iron 02/07/2021 57 ??? TIBC 02/07/2021 231 (A) ??? Transferrin saturation 02/07/2021 25 ??? Cholesterol 02/07/2021 133 ??? Triglycerides 02/07/2021 147 ??? HDL 02/07/2021 51 ??? LDL, calculated 02/07/2021 53 ??? Non-HDL Cholesterol 02/07/2021 82 ??? Chol/HDL ratio 02/07/2021 3 ??? CRP 02/07/2021 3.1 ??? Vitamin D, 25-hydroxy 02/07/2021 21.0 (A) ??? TSH 02/07/2021 1.54 ??? Erythrocyte sedimentatio* 02/07/2021 94 (A) ??? Vitamin B12 02/07/2021 684 ? ? Folic acid 02/07/2021 >20.0 ??? Neutrophil abs 02/07/2021 5.1 ??? Imm gran abs 02/07/2021 0.0 ??? Lymphocyte abs 02/07/2021 2.9 ??? Monocyte abs 02/07/2021 0.6 ??? Eosinophil abs 02/07/2021 0.2 ??? Basophil abs 02/07/2021 0.0 ??? Neutrophil pct 02/07/2021 57.9 ??? Imm gran pct 02/07/2021 0.2 ??? Lymphocyte pct 02/07/2021 32.6 ??? Monocyte pct 02/07/2021 7.2 ??? Eosinophil pct 02/07/2021 1.8 ??? Basophil pct 02/07/2021 0.3 ??? eGFR 02/07/2021 38 Office Visit on 01/08/2021 Component Date Value ??? Hemoglobin A1C, POC 01/08/2021 8.2 Office Visit on 12/10/2020 Component Date Value ??? Hemoglobin A1C, POC 12/10/2020 7.5 Office Visit on 11/13/2020 Component Date Value ??? Glucose Blood, POC 11/13/2020 197 Office Visit on 10/16/2020 Component Date Value ??? Hemoglobin A1c % 10/16/2020 8.9 (A) Office Visit on 10/02/2020 Component Date Value ??? Hemoglobin A1C, POC 10/02/2020 9.1 Office Visit on 08/28/2020 Component Date Value ??? Hemoglobin A1C, POC 08/28/2020 8.3 There may be more visits with results that are not included. Adryan Swenson MD [facility] Office: documented in this encounter Miscellaneous Notes * Assessment & Plan Note - Adryan Swenson MD - 09/03/2021 3:28 PM CDT Associated Problem(s): Schizoaffective disorder, bipolar type (CMS/HCC) (HCC) Chronic, persistent, but functioning at or close [...] and re-evaluate at next interval as discussed. * Assessment & Plan Note - Adryan Swenson MD - 09/03/2021 3:27 PM CDT Associated Problem(s): Late onset Alzheimer's dementia without behavioral disturbance (HCC) Chronic, stable. Alert, oriented to self, current place. Continue to monitor. Clock drawing test at next interval. Consideration for Aricept. documented in this encounter Plan of Treatment Upcoming Encounters Date Type Department Care Team (Latest Contact Info) Description 07/13/2024 9:00 AM DIE CAST DIE MAKER Hospital Encounter [facility] [address] [place] [address] [place] [address] [place] [address] [address] GAINES [address] [place] [id number] 07/13/2024 9:00 AM DIE CAST DIE MAKER - 07/13/2024 9:30 AM DIE CAST DIE MAKER Surgery [facility] [address] [place] [address] Jaya Grier MD [address] [place] [address] [address] GAINES [address] [place] [id number] ESOPHAGOGASTRODUODENOSCOPY Scheduled Procedures Name Priority Associated Diagnoses Date/Ti vt ESOPHAGOGASTRODUODENOSCOPY Anemia, unspecified type Gastritis without bleeding, unspecified chronicity, unspecified gastritis type 07/13/2024 9:00 AM DIE CAST DIE MAKER COLONOSCOPY Iron deficiency anemia due to chronic blood loss documented as of this encounter Visit Diagnoses Diagnosis Schizoaffective disorder, bipolar type (CMS/HCC) (HCC)- Primary Schizoaffective disorder, unspecified condition Late onset Alzheimer's dementia without behavioral disturbance (HCC) Anemia, unspecified type Gastritis without bleeding, unspecified chronicity, unspecified gastritis type documented in this encounter Additional Health Concerns Infection Onset Date Last Indicated Resolved Time COVID19 08/13/2021 08/13/2021 08/24/2021 3:05 AM DIE CAST DIE MAKER documented as of this encounter Care Teams Meat Cutting Teacher Relationship Specialty Start Date End Date Cherelle Corcoran MD PCP - General Family Medicine 08/30/19 Mark Queen MD Consulting Physician Infectious Diseases 01/10/20 documented as of this encounter
--- OUTSIDE RECORDS SUMMARY | 2024-07-04 04:18 | XMS_ITS | Encounter Summary ---
Author Organization [facility] Healthcare Address [address] [place] [address] Care Team Providers Care Cylinder Batcher Name Role Phone Cherelle Corcoran MD Primary Care Pro vider Mark Queen MD Unavailable [phone] Encounter Details Date Type Department Care Team (Late st Contact Info) Description 02/07/2021 5:00 PM CDT Lab [facility] Lab [address] [place] [id number] Stage 3b chronic kidney disease (HCC); Iron deficiency anemia, unspecified iron deficiency anemia type; Uncontrolled type 2 diabetes mellitus with hyperglycemia (CMS/HCC) (HCC); Hyperlipidemia associated with type 2 diabetes mellitus (HCC); Dementia (HCC); Vitamin D deficiency Social History Tobacco Use Types Packs/Day Years Used Date Smoking Tobacco: Never Smokeless Tobacco: Never Alcohol Use Standard Drinks/Week Comments Not Currently 0 (1 standard drink = 0.6 oz pur e alcohol) PHQ-2 Answer Date Recorded PHQ-2 Total Score (If total score is 3 or more points, staff should administer the PHQ-9) 0 01/08/2021 Comments No Sex and Gender Information Value Date Recorded Sex Assigned at Not on file Legal Sex Female 9:03 AM MATERIALS MANAGER Gender Identity Female 02/08/2020 6:39 PM CDT Sexual Orientation Not on file documented as of this encounter Plan of Treatment Upcoming Encounters Date Type Department Care Team (Latest Contact Info) Description 07/13/2024 9:00 AM MATERIALS MANAGER Hospital Encounter [facility] [address] [place] [address] Jaya Grier MD [address] [place] [address] 07/13/2024 9:00 AM MATERIALS MANAGER - 07/13/2024 9:30 AM MATERIALS MANAGER Surgery [facility] [address] [place] [address] Jaya Grier MD [address] [place] [address] ESOPHAGOGASTRODUODENOSCOPY Scheduled Procedures Name Priority Associated Diagnoses Date/Ti me ESOPHAGOGASTRODUODENOSCOPY Anemia, unspecified type Gastritis without bleeding, unspecified chronicity, unspecified gastritis type 07/13/2024 9:00 AM MATERIALS MANAGER COLONOSCOPY Iron deficiency anemia due to chronic blood loss documented as of this encounter Procedures Procedure Name Priority Date/Time Associated Diagnosis Comments EGFR Routine 02/07/2021 5:20 PM CDT Stage 3b chronic kidney disease (HCC) DIFFERENTIAL AUTO Routine 02/07/2021 5:2 0 PM CDT Iron deficiency anemia, unspecified iron deficiency anemia type THYROID FUNCTION CASCADE Routine 02/07/2021 5:20 PM CDT Dementia (HCC) IRON PROFILE W/ IBC Routine 02/07/2021 5 :20 PM CDT Iron deficiency anemia, unspecified iron deficiency anemia type CBC WITH AUTO DIFFERENTIAL Routine 02/07/2021 5:20 PM CDT Iron deficiency anemia, unspecified iron deficiency anemia type PROTEIN / CREATININE RATIO, URINE, RANDOM Routine 02/07/2021 5:20 PM CDT Stage 3b chronic kidney disease (HCC) VITAMIN D 25 HYDROXY Routine 02/07/2021 5:20 PM CDT Vitamin D deficiency ERYTHROCYTE SEDIMENTATION RATE Routine 02/07/2021 5:20 PM CDT Dementia (HCC) CRP (ACUTE PHASE) Routine 02/07/2021 5:2 0 PM CDT Dementia (HCC) PTH Routine 02/07/2021 5:20 PM CDT Stage 3b chronic kidney disease (HCC) HEMOGLOBIN A1C Routine 02/07/2021 5:20 PM CDT Uncontrolled type 2 diabetes mellitus with hyperglycemia (CMS/HCC) (HCC) FOLATE Routine 02/07/2021 5:20 PM CDT Dementia (HCC) VITAMIN B12 Routine 02/07/2021 5:20 PM CDT Dementia (HCC) LIPID PANEL Routine 02/07/2021 5:20 PM CDT Hyperlipidemia associated with type 2 diabetes mellitus (HCC) COMPREHENSIVE METABOLIC PANEL Routine 02/07/2021 5:20 PM CDT Stage 3b chronic kidney disease (HCC) documented in this encounter Results * eGFR (02/07/2021 5:20 PM CDT) [facility] eGFR 38 mL/min/1.7 3 m2 NILSA RODRIGES Comment: Interpretive Data Reference Interval Normal ?>/= 90 mL/min/1.73m2 Mildly decreased* ? 60 - 89 mL/min/1.73m2 Mildly to moderately decreased ?45 - 59 mL/min/1.73m2 Moderately to severely decreased ??30 - 44 mL/min/1.73m2 Severely decreased ?15 - 29 mL/min/1.73m2 Kidney Failure ?< 15 ??mL/min/1.73m2 *Relative to young adult level Estimated glomerular filtration rate is determined by the CKD-EPI equation recommended by the National Kidney Foundation (KDIGO 2012 Clinical Practice Guideline for the Evaluation and Management of Chronic Kidney Disease. Kidney Intnl Suppl Jun 2012;3:1). The CKD-EPI equation should not be used for patients with unstable renal function and has not been validated in children and those over 70. Current interpretive data was last reviewed 2020 Testing performed by: [address] [address] Blood 02/07/2021 5:20 PM CDT 02/07/2021 5:33 PM CDT us Cherelle Corcoran MD LAB BLOOD ORDERAB LES Final Result [facility] [address] [facility] [place] [address] * Differential, auto (02/07/2021 5:20 PM CDT) Neutrophil abs 5.1 1.7 - 6.5 K/cumm NILSA Comment:Testing performed by : [address] [address] Imm gran abs 0.0 0.0 - 0.1 K/cumm NILSA Comment:Testing performed by : [address] [address] Lymphocyte abs 2.9 0.8 - 3.3 K/cumm NILSA Comment:Testing performed by : [address] [address] Monocyte abs 0.6 0.2 - 0.8 K/cumm NILSA Comment:Testing performed by : [address] [address] Eosinophil abs 0.2 0.0 - 0.5 K/cumm NILSA Comment:Testing performed by : [address] [address] Basophil abs 0.0 0.0 - 0.1 K/cumm NILSA Comment:Testing performed by : [address] [address] Neutrophil pct 57.9 % [facility] Comment: Interpretive Data Percent cell count reference ranges are not reported, since discordance with absolute values may lead to misinterpretation of CBC data. Current Interpretive Data was last revised on 2017. Testing performed by: [address] [address] Imm gran pct 0.2 % [facility] Comment: Interpretive Data Percent cell count reference ranges are not reported, since discordance with absolute values may lead to misinterpretation of CBC data. Current Interpretive Data was last revised on 2017. Testing performed by: [address] [address] Lymphocyte pct 32.6 % [facility] Comment: Interpretive Data Percent cell count reference ranges are not reported, since discordance with absolute values may lead to misinterpretation of CBC data. Current Interpretive Data was last revised on 2017. Testing performed by: [address] [address] Monocyte pct 7.2 % [facility] Comment: Interpretive Data Percent cell count reference ranges are not reported, since discordance with absolute values may lead to misinterpretation of CBC data. Current Interpretive Data was last revised on 2017. Testing performed by: [address] [address] Eosinophil pct 1.8 % [facility] Comment: Interpretive Data Percent cell count reference ranges are not reported, since discordance with absolute values may lead to misinterpretation of CBC data. Current Interpretive Data was last revised on 2017. Testing performed by: [address] [address] Basophil pct 0.3 % [facility] Comment: Interpretive Data Percent cell count reference ranges are not reported, since discordance with absolute values may lead to misinterpretation of CBC data. Current Interpretive Data was last revised on 2017. Testing performed by: [address] [address] Blood 02/07/2021 5:20 PM CDT 02/07/2021 5:34 PM CDT us Cherelle Corcoran MD LAB BLOOD ORDERAB LES Final Result Performing Organization Address [facility] Co de Phone Number [address] [address] * Folate (02/07/2021 5:20 PM CDT) Pathologist [facility] Folic acid >20.0 >=5.0 ng/mL NILSA Comment:Testing performed by : [address] [address] Blood 02/07/2021 5:20 PM CDT 02/07/2021 5:33 PM CDT us Adryan Swenson MD LAB BLOOD ORDERABLES Final Result Performing Organization Address [facility] Co de Phone Number [address] [address] * Vitamin B12 (02/07/2021 5:20 PM CDT) Pathologist [facility] Vitamin B12 684 230 - 1,250 pg/mL NILSA Comment:Testing performed by : [address] [address] Blood 02/07/2021 5:20 PM CDT 02/07/2021 5:33 PM CDT Adryan Swenson MD LAB BLOOD ORDERABLES Final Result Performing Organization Address [facility] Co de Phone Number [address] [address] * (ABNORMAL) Erythrocyte sedimentation rate (02/07/2021 5:20 PM CDT) Pathologist [facility] Erythrocyte sedimentation rate 94(H) 1 - 30 mm/hr NILSA Comment:Testing performed by : [address] [address] Blood 02/07/2021 5:20 PM CDT 02/07/2021 5:34 PM CDT Adryan Swenson MD LAB BLOOD ORDERABLES Final Result Performing Organization Address [facility] Co de Phone Number NILSA [address] [address] * TSH reflex to free T4 (02/07/2021 5:20 PM CDT) [facility] TSH 1.54 0.30 - 4.20 mcIUnit/mL NILSA Comment:Testing performed by : [address] [address] Blood 02/07/2021 5:20 PM CDT 02/07/2021 5:33 PM CDT Adryan Swenson MD LAB BLOOD ORDERABLES Final Result Performing Organization Address [facility] Co de Phone Number CARLOS ENRIQUE[address] [employer] [place] [address] * (ABNORMAL) Vitamin D 25 hydroxy (02/07/2021 5:20 PM CDT) [facility] Vitamin D 25-OH 21.0(L) 30.0 - 80.0 ng/mL NILSA Comment:Below Ref Range Blood 02/07/2021 5:20 PM CDT 02/07/2021 6:27 PM CDT Adryan Swenson MD LAB BLOOD ORDERABLES Final Result Performing Organization Address [facility] Co de Phone Number [address] [address] * CRP (acute phase) (02/07/2021 5:20 PM CDT) [facility] CRP 3.1 <=10.0 mg/L NILSA Comment:Testing performed by : [address] [address] Blood 02/07/2021 5:20 PM CDT 02/07/2021 5:33 PM CDT us Adryan Swenson MD LAB BLOOD ORDERABLES Final Result NILSA [address] [facility] Department [place] [address] * Lipid panel (02/07/2021 5:20 PM CDT) Cholesterol 133 30 - 199 mg/dL NILSA Comment: Interpretive Data Ages < [...] on 2018. Testing performed by: [facility], [address] [place] [address]., [address] Triglycerides 147 <=149 mg/dL NILSA Comment: Interpretive Data Ages [...] last revised on 2018. Testing performed by: [address] [address] HDL 51 >=40 mg/dL [facility] Comment: Interpretive Data Ages < or = [...] last revised on 2018. Testing performed by: [address] [address] LDL, calculated 53 <=129 mg/dL [facility] Comment: Interpretive Data Ages < or = [...] last revised on 2018. Testing performed by: [address] [address] Non-HDL Cholesterol 82 mg/dL NILSA RODRIGES Comment: Interpretive Data Ages < or = [...] last revised on 2018. Testing performed by: [address] [address] Chol/HDL ratio 3 NILSA RODRIGES Comment:Testing performed by : [address] [address] Blood 02/07/2021 5:20 PM CDT 02/07/2021 5:33 PM CDT us Cherelle Corcoran MD LAB BLOOD ORDERAB LES Final Result [facility] [address] [facility] Department [place] [address] * (ABNORMAL) Iron profile w/ IBC (02/07/2021 5:20 PM CDT) Iron 57 35 - 145 mcg/dL NILSA RODRIGES Comment:Testing performed by : [address] [address] TIBC 231(L) 250 - 400 mcg/dL NILSA RODRIGES Comment:Testing performed by : [address] [address] Transferrin saturation 25 20 - 50 % NILSA RODRIGES Comment:Testing performed by : [address] [place]., [address] Blood 02/07/2021 5:20 PM CDT 02/07/2021 5:33 PM CDT Cherelle Corcoran MD LAB BLOOD ORDERAB LES Final Result Performing Organization Address [facility] Co de Phone Number [address] [address] * PTH (02/07/2021 5:20 PM CDT) PTH 36.0 15.0 - 65.0 pg/mL NILSA Comment:Testing performed by : [address] [address] Blood 02/07/2021 5:20 PM CDT 02/07/2021 5:34 PM CDT Cherelle Corcoran MD LAB BLOOD ORDERAB LES Final Result Performing Organization Address [facility] de Phone Number [address] [employer] [place] [address] * (ABNORMAL) Hemoglobin A1c (02/07/2021 5:20 PM CDT) Hgb A1C 8.4(H) 4.0 - 5.6 % NILSA Comment:Testing performed by : [address] [address] Estimated Average Glucose 194 mg/dL NILSA Comment: The ADA recommends reporting an estimated Average Glucose (eAG) with all Hemoglobin A1c results using the equation derived from a study of 507 normal and diabetic adults. ??Minority populations were underrepresented and children were not included. ?? (Diabetes Care 31:9591-9052, 2008). ??The eAG is not equivalent to a fasting glucose. Testing performed by: [address] [address] Blood 02/07/2021 5:20 PM CDT 02/07/2021 5:34 PM CDT us Cherelle Corcoran MD LAB BLOOD ORDERAB LES Final Result NILSA [address] [facility] Department [place] [address] * (ABNORMAL) CBC with auto differential (02/07/2021 5:20 PM CDT) WBC 8.8 3.8 - 9.9 K/cumm NILSA Comment:Testing performed by : [address] [address] Hgb 10.0(L) 11.9 - 15.5 g/dL NILSA Comment:Testing performed by : [address] [address] Hct 31.5(L) 35.6 - 45.5 % NILSA Comment:Testing performed by : [address] [address] Plt 284 150 - 400 K/cumm NILSA Comment:Testing performed by : [address] [address] MPV 10.4 9.1 - 12.3 fL NILSA Comment:Testing performed by : [address] [address] RBC 3.34(L) 3.90 - 5.20 M/cumm NILSA Comment:Testing performed by : [address] [address] MCV 94.3 81.3 - 96.4 fL NILSA Comment:Testing performed by : [address] [address] MCH 29.9 27.1 - 33.3 pg NILSA Comment:Testing performed by : [address] [address] MCHC 31.7(L) 32.3 - 35.7 g/dL NILSA Comment:Testing performed by : [address] [address] RDW CV 14.1 11.1 - 14.9 % NILSA RODRIGES Comment:Testing performed by : [address] [address] RDW SD 48.9(H) 35.7 - 48.1 fL NILSA RODRIGES Comment:Testing performed by : [address] [address] NRBC abs 0.00 0.00 - 0.01 K/cumm NILSA RODRIGES Comment:Testing performed by : [address] [address] Blood 02/07/2021 5:20 PM CDT 02/07/2021 5:34 PM CDT us Cherelle Corcoran MD LAB BLOOD ORDERAB LES Final Result NILSA RODRIGES [address] [facility] Department [place] [address] * (ABNORMAL) Comprehensive metabolic panel (02/07/2021 5:20 PM CDT) Sodium 143 135 - 145 mmol/L NILSA Comment:Testing performed by : [address] [address] Potassium, pl 3.8 3.3 - 4.9 mmol/L NILSA Comment:Testing performed by : [address] [address] Chloride 104 97 - 110 mmol/L NILSA Comment:Testing performed by : [address] [address] CO2 30 22 - 32 mmol/L NILSA Comment:Testing performed by : [address] [address] Anion gap 9 2 - 15 mmol/L NILSA Comment:Testing performed by : [address] [address] BUN 25 8 - 25 mg/dL NILSA Comment:Testing performed by : [address] [address] Creatinine 1.40(H) 0.60 - 1.10 mg/dL NILSA RODRIGES Comment:Testing performed by : [address] [address] Glucose 183 70 - 199 mg/dL NILSA Comment: Interpretive [...] was last revised 2017. Testing performed by: [address] [address] Calcium 9.5 8.5 - 10.3 mg/dL NILSA Comment:Testing performed by : [address] [address] Bilirubin, total <0.2 0.1 - 1.2 mg/dL NILSA Comment:Testing performed by : [address] [address] Protein, pl 7.0 6.5 - 8.5 g/dL NILSA Comment:Testing performed by : [address] [address] Albumin 3.6 3.5 - 5.0 g/dL NILSA Comment:Testing performed by : [address] [address] Alk phos 123 40 - 130 Units/L NILSA Comment:Testing performed by : [address] [address] ALT 14 7 - 45 Units/L NILSA Comment:Testing performed by : [address] [address] AST 16 10 - 45 Units/L NILSA Comment:Testing performed by : [address] [address] Blood 02/07/2021 5:20 PM CDT 02/07/2021 5:33 PM CDT Cherelle Corcoran MD LAB BLOOD ORDERAB LES Final Result Performing Organization Address [facility] de Phone Number NILSA [facility] [place] [address] * (ABNORMAL) Protein / creatinine ratio, urine, random (02/07/2021 5:20 PM CDT) Protein, ur, quant 265.0 mg/dL NILSA Comment: Interpretive Data No reference range established. Current interpretive data was last revised 2018. Testing performed by: [address] [address] Creatinine Ur 48.3 mg/dL NILSA Comment: Interpretive Data No reference range established. Current interpretive data was last revised 2018. Testing performed by: [address] [address] Protein/creatinin e ratio 5,486.5(H ) 0.0 - 180.0 mg/g CR NILSA Comment:Testing performed by : [address] [address] Urine 02/07/2021 5:20 PM CDT 02/07/2021 7:30 PM CDT Cherelle Corcoran MD LAB URINE ORDERAB LES Final Result Performing Organization Address [facility] Co de Phone Number [place] [id number] [facility] [employer] [place] [address] documented in this encounter Visit Diagnoses Diagnosis Stage 3b chronic kidney disease (HCC) Iron deficiency anemia, unspecified iron deficiency anemia type Uncontrolled type 2 diabetes mellitus with hyperglycemia (HCC) Hyperlipidemia associated with type 2 diabetes mellitus (HCC) Dementia (HCC) 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
--- OUTSIDE RECORDS SUMMARY | 2024-07-04 04:18 | XMS_ITS | Encounter Summary ---
Author Organization [facility] Medical [facility] Address [address] [facility] [address] [place] [address] Care Team Providers Care Flat Sorter Processor Name Role Phone Cherelle Corcoran MD Primary Care Pro vider Mark Queen MD Unavailable [phone] Encounter Details Date Type Department Care Team (Late st Contact Info) Description 08/05/[address] [facility] Medical [facility] Primary Care [address] [facility] [address] [place] [address] Cherelle Corcoran MD [facility] [address] [place] [address] Social History Tobacco Use Types [...] on file Legal Sex Female 9:03 AM ALUM PLANT OPERATOR Gender Identity Female 02/08/2020 6:39 PM CDT Sexual Orientation Not on file documented as of this encounter Miscellaneous Notes * Telephone Encounter - Yoly Elkins LPN - 08/05/2021 9:35 AM CST JOY Questions: What days were you in the hospital? 07/31/2021-08/04/2021 What hospital (or care home facility) were you in? [facility] What was the reason for your hospital stay? Cardiac and Kidney Issues If you were prescribed any new medications in the hospital, do you have any questions or concerns about them (if patient has concerns route message to clinical pool)? No concerns If you were prescribed new medications, were you able to pick them up (if patient will not be able to olive picker the medications, route to clinical pool)? Yes Do you have enough medication to get you to your follow-up appointment (if patient does not have enough medication, route to clinical pool)? Yes Since being released from the hospital do you feel better, the same, or worse (if patient feels worse, route to clinical pool)? Patient not better. Date of Transition of Care Appointment: 08/05/2021 Do you have transportation to the appointment? (if patient does not, route to clinical pool) Yes Additional Comments: Med not reviewed. PLANT OPERATOR * Telephone Encounter - Tena Roman - 08/05/2021 9:04 AM CST Patient daughter/ Areli called to schedule a hospital follow up. Pt was discharge on 08/04/21. Pt daughter CB# [phone] PLANT OPERATOR documented in this encounter Plan of Treatment Upcoming Encounters Date Type Department Care Team (Latest Contact Info) Description 07/13/2024 9:00 AM ALUM PLANT OPERATOR Hospital Encounter [facility] [address] [place] [address] Jaya Grier MD [address] [place] [address] 07/13/2024 9:00 AM ALUM PLANT OPERATOR - 07/13/2024 9:30 AM ALUM PLANT OPERATOR Surgery [facility] [address] [place] [address] Jaya Grier MD [address] [place] [address] ESOPHAGOGASTRODUODENOSCOPY Scheduled Procedures Name Priority Associated Diagnoses Date/Ti me ESOPHAGOGASTRODUODENOSCOPY Anemia, unspecified type Gastritis without bleeding, unspecified chronicity, unspecified gastritis type 07/13/2024 9:00 AM ALUM PLANT OPERATOR COLONOSCOPY Iron deficiency anemia due to chronic blood loss documented as of this encounter Visit Diagnoses Not on filedocumented in this encounter Care Teams Flat Sorter Processor Relationship Specialty Start Date End Date Cherelle Corcoran MD PCP - General Family Medicine 08/30/19 Mark Queen MD Consulting Physician Infectious Diseases 01/10/20 documented as of this encounter
--- OUTSIDE RECORDS SUMMARY | 2024-07-04 04:18 | XMS_ITS | Encounter Summary ---
Author Organization [facility] Address [address] [place] [address] Care Team Providers Care Electrical Manager Name Role Phone Cherelle Corcoran MD Primary Care Pro vider Mark Queen MD Unavailable [phone] Encounter Details Date Type Department Care Team (Late st Contact Info) Description 06/13/2021 Telephone [facility] Primary Care [address] [place] [address] Tena Roman Social History Tobacco Use Types Packs/Day Years Used Date Smoking Tobacco: Never Smokeless Tobacco: Never Alcohol Use Standard Drinks/Week Comments Not Currently 0 (1 standard drink = 0.6 oz pur e alcohol) AUDIT-C Answer Date Recorded Q1: How often do you have a drink containing alc ohol? Never 06/18/2021 Average Number of Drinks Not on file 021 Frequency of Binge Drinking Not on file 05/23 PHQ-2 Answer Date Recorded PHQ-2 Total Score (If total score is 3 or more points, staff should administer the PHQ-9) 0 01/08/2021 Comments No Sex and Gender Information Value Date Recorded Sex Assigned at Not on file Legal Sex Female 9:03 AM CARDIAC REHAB NURSE Gender Identity Female 02/08/2020 6:39 PM CDT Sexual Orientation Not on file documented as of this encounter Miscellaneous Notes * Telephone Encounter - Sandy Mota MA - 06/17/2021 10:16 AM CST Pt daughter aware. IAC REHAB NURSE * Telephone Encounter - Cherelle Corcoran MD - 06/17/2021 9:54 AM CST It's under her chart, 09/17/20 IAC REHAB NURSE * Telephone Encounter - Sandy Mota MA - 06/17/2021 9:34 AM CST I am not seeing FMLA paperwork in the chart. Can you double check if im correct or not? IAC REHAB NURSE * Telephone Encounter - Tena Roman - 06/13/2021 10:07 AM CST Patient daughter/ Areli want to know when was the last date she had her FMLA paper work filled out. Daughter/Areli phone # [phone] IAC REHAB NURSE documented in this encounter Plan of Treatment Upcoming Encounters Date Type Department Care Team (Latest Contact Info) Description 07/13/2024 9:00 AM CARDIAC REHAB NURSE Hospital Encounter [facility] [address] [place] [id number] Jaya Grier MD [address] [place] [address] [address] [place] [address] 07/13/2024 9:00 AM CARDIAC REHAB NURSE - 07/13/2024 9:30 AM CARDIAC REHAB NURSE Surgery [facility] [address] [place] [address] Jaya Grier MD [facility] [address] [place] [address] ESOPHAGOGASTRODUODENOSCOPY Scheduled Procedures Name Priority Associated Diagnoses Date/Ti me ESOPHAGOGASTRODUODENOSCOPY Anemia, unspecified type Gastritis without bleeding, unspecified chronicity, unspecified gastritis type 07/13/2024 9:00 AM CARDIAC REHAB NURSE COLONOSCOPY Iron deficiency anemia due to chronic blood loss documented as of this encounter Visit Diagnoses Not on filedocumented in this encounter Care Teams Electrical Manager Relationship Specialty Start Date End Date Cherelle Corcoran MD PCP - General Family Medicine 08/30/19 Mark Queen MD Consulting Physician Infectious Diseases 01/10/20 documented as of this encounter
--- OUTSIDE RECORDS SUMMARY | 2024-07-04 04:18 | XMS_ITS | Encounter Summary ---
Author Organization [facility] Healthcare Address [address] [place] [address] Care Team Providers Care Patent Drafter Name Role Phone Cherelle Corcoran MD Primary Care Pro vider Mark Queen MD Unavailable [phone] Encounter Details Date Type Department Care Team (Late st Contact Info) Description 08/05/2021 11:00 AM [facility] Building [address] [address] Diabetic nephropathy (CMS/HCC) (HCC); Stage 3a chronic kidney disease (HCC); Anemia in stage 3a chronic kidney disease (HCC); Type 2 diabetes mellitus with diabetic [...] on file Legal Sex Female 9:03 AM ORDER DISPATCHER CHIEF Gender Identity Female 02/08/2020 6:39 PM CDT Sexual Orientation Not on file documented as of this encounter Plan of Treatment Upcoming Encounters Date Type Department Care Team (Latest Contact Info) Description 07/13/2024 9:00 AM ORDER DISPATCHER CHIEF Hospital Encounter [facility] [address] [place] [address] Jaya Grier MD [address] [facility] [address] [address] [place] [address] 07/13/2024 9:00 AM ORDER DISPATCHER CHIEF - 07/13/2024 9:30 AM ORDER DISPATCHER CHIEF Surgery [facility] [address] [place] [address] Jaya Grier MD [facility] [address] [place] [address] ESOPHAGOGASTRODUODENOSCOPY Scheduled Procedures Name Priority Associated Diagnoses Date/Ti me ESOPHAGOGASTRODUODENOSCOPY Anemia, unspecified type Gastritis without bleeding, unspecified chronicity, unspecified gastritis type 07/13/2024 9:00 AM ORDER DISPATCHER CHIEF COLONOSCOPY Iron deficiency anemia due to chronic blood loss documented as of this encounter Procedures Procedure Name Priority Date/Time Associated Diagnosis Comments EGFR Routine 08/05/2021 11:07 AM ORDER DISPATCHER CHIEF Stage 3a chronic kidney disease (HCC) DIFFERENTIAL AUTO Routine 08/05/2021 11: 07 AM ORDER DISPATCHER CHIEF Anemia in stage 3a chronic kidney disease (HCC) CBC WITH AUTO DIFFERENTIAL Routine 08/05/2021 11:07 AM ORDER DISPATCHER CHIEF Anemia in stage 3a chronic kidney disease (HCC) ALBUMIN CREATININE RATIO, URINE Routine 08/05/2021 11:07 AM ORDER DISPATCHER CHIEF Diabetic nephropathy (CMS/HCC) (HCC) HEMOGLOBIN A1C Routine 08/05/2021 11:07 AM ORDER DISPATCHER CHIEF Type 2 diabetes mellitus with diabetic neuropathy, with long-term current use of insulin (CMS/HCC) (HCC) COMPREHENSIVE METABOLIC PANEL Routine 08/05/2021 11:07 AM ORDER DISPATCHER CHIEF Stage 3a chronic kidney disease (HCC) documented in this encounter Results * eGFR (08/05/2021 11:07 AM ORDER DISPATCHER CHIEF) eGFR 24 mL/min/1. 73 m2 NILSA RODRIGES Comment: Interpretive [...] was last reviewed 2021. Testing performed by: [facility], [address] [place] [address], [place]., [address] Blood 08/05/2021 11:0 7 AM ORDER DISPATCHER CHIEF 08/05/2021 1:59 PM ORDER DISPATCHER CHIEF us Markie Ryan MD LAB BLOOD ORDERABLES Final Re sult NILSA [address] [place] [address] Department [place] [address] * (ABNORMAL) Differential, auto (08/05/2021 11:07 AM ORDER DISPATCHER CHIEF) Neutrophil abs 7.2(H) 1.7 - 6.5 K/cumm NILSA Comment:Testing performed by : [address] [address] Imm gran abs 0.0 0.0 - 0.1 K/cumm NILSA Comment:Testing performed by : [address] [address] Lymphocyte abs 1.9 0.8 - 3.3 K/cumm NILSA Comment:Testing performed by : [address] [address] Monocyte abs 0.5 0.2 - 0.8 K/cumm NILSA Comment:Testing performed by : [address] [address] Eosinophil abs 0.1 0.0 - 0.5 K/cumm NILSA Comment:Testing performed by : [address] [address] Basophil abs 0.0 0.0 - 0.1 K/cumm NILSA Comment:Testing performed by : [address] [address] Neutrophil pct 74.7 % [facility] Comment: Interpretive Data Percent cell count reference ranges are not reported, since discordance with absolute values may lead to misinterpretation of CBC data. Current Interpretive Data was last revised on 2017. Testing performed by: [address] [address] Imm gran pct 0.2 % [facility] Comment: Interpretive Data Percent cell count reference ranges are not reported, since discordance with absolute values may lead to misinterpretation of CBC data. Current Interpretive Data was last revised on 2017. Testing performed by: [address] [address] Lymphocyte pct 19.5 % [facility] Comment: Interpretive Data Percent cell count reference ranges are not reported, since discordance with absolute values may lead to misinterpretation of CBC data. Current Interpretive Data was last revised on 2017. Testing performed by: [address] [address] Monocyte pct 4.8 % NILSA Comment: Interpretive Data Percent cell count reference ranges are not reported, since discordance with absolute values may lead to misinterpretation of CBC data. Current Interpretive Data was last revised on 2017. Testing performed by: [address] [address] Eosinophil pct 0.6 % NILSA Comment: Interpretive Data Percent cell count reference ranges are not reported, since discordance with absolute values may lead to misinterpretation of CBC data. Current Interpretive Data was last revised on 2017. Testing performed by: [address] [address] Basophil pct 0.2 % NILSA Comment: Interpretive Data Percent cell count reference ranges are not reported, since discordance with absolute values may lead to misinterpretation of CBC data. Current Interpretive Data was last revised on 2017. Testing performed by: [address] [address] Blood 08/05/2021 11:0 7 AM ORDER DISPATCHER CHIEF 08/05/2021 1:58 PM ORDER DISPATCHER CHIEF us Markie Ryan MD LAB BLOOD ORDERABLES Final Re sult [facility] [address] Department [place] [address] * (ABNORMAL) Hemoglobin A1c (08/05/2021 11:07 AM ORDER DISPATCHER CHIEF) Hgb A1C 8.0(H) 4.0 - 5.6 % NILSA Comment:Testing performed by : [address] [address] Estimated Average Glucose 183 mg/dL NILSA Comment: The ADA recommends reporting an estimated Average Glucose (eAG) with all Hemoglobin A1c results using the equation derived from a study of 507 normal and diabetic adults. ??Minority populations were underrepresented and children were not included. ?? (Diabetes Care 31:6593-6959, 2008). ??The eAG is not equivalent to a fasting glucose. Testing performed by: [address] [address] Blood 08/05/2021 11:0 7 AM ORDER DISPATCHER CHIEF 08/05/2021 1:59 PM ORDER DISPATCHER CHIEF us Cherelle Corcoran MD LAB BLOOD ORDERAB LES Final Result [facility] [address] Department [place] [address] * (ABNORMAL) CBC with auto differential (08/05/2021 11:07 AM ORDER DISPATCHER CHIEF) WBC 9.7 3.8 - 9.9 K/cumm NILSA Comment:Testing performed by : [address] [address] Hgb 10.2(L) 11.9 - 15.5 g/dL NILSA Comment:Testing performed by : [address] [address] Hct 32.7(L) 35.6 - 45.5 % NILSA Comment:Testing performed by : [address] [address] Plt 350 150 - 400 K/cumm NILSA Comment:Testing performed by : [address] [address] MPV 10.9 9.1 - 12.3 fL NILSA Comment:Testing performed by : [address] [address] RBC 3.45(L) 3.90 - 5.20 M/cumm NILSA Comment:Testing performed by : [address] [address] MCV 94.8 81.3 - 96.4 fL NILSA RODRIGES Comment:Testing performed by : [address] [address] MCH 29.6 27.1 - 33.3 pg NILSA RODRIGES Comment:Testing performed by : [address] [address] MCHC 31.2(L) 32.3 - 35.7 g/dL NILSA RODRIGES Comment:Testing performed by : [address] [address] RDW CV 15.0(H) 11.1 - 14.9 % NILSA RODRIGES Comment:Testing performed by : [address] [address] RDW SD 52.4(H) 35.7 - 48.1 fL NILSA RODRIGES Comment:Testing performed by : [address] [address] NRBC abs 0.00 0.00 - 0.01 K/cumm NILSA RODRIGES Comment:Testing performed by : [address] [address] Blood 08/05/2021 11:0 7 AM ORDER DISPATCHER CHIEF 08/05/2021 1:58 PM ORDER DISPATCHER CHIEF us Markie Ryan MD LAB BLOOD ORDERABLES Final Re sult NILSA [facility] [facility] Department of Laboratories [place], [place] [id number] * (ABNORMAL) Comprehensive metabolic panel (08/05/2021 11:07 AM ORDER DISPATCHER CHIEF) Sodium 144 135 - 145 mmol/L NILSA RODRIGES Comment:Testing performed by : [address] [address] Potassium, pl 4.3 3.3 - 4.9 mmol/L INLSA RODRIGES Comment:Testing performed by : [address] [address] Chloride 106 97 - 110 mmol/L NILSA RODRIGES Comment:Testing performed by : [address] [address] CO2 23 22 - 32 mmol/L NILSA RODRIGES Comment:Testing performed by : [address] [address] Anion gap 15 2 - 15 mmol/L NILSA RODRIGES Comment:Testing performed by : [address] [address] BUN 24 8 - 25 mg/dL NILSA Comment:Testing performed by : [address] [address] Creatinine 2.20(H) 0.60 - 1.10 mg/dL NILSA Comment:Testing performed by : [address] [address] Glucose 119 70 - 199 mg/dL NILSA Comment: Interpretive [...] was last revised 2017. Testing performed by: [address] [address] Calcium 9.5 8.5 - 10.3 mg/dL NILSA Comment:Testing performed by : [address] [address] Bilirubin, total 0.4 0.1 - 1.2 mg/dL NILSA Comment:Testing performed by : [address] [address] Protein, pl 7.8 6.5 - 8.5 g/dL NILSA Comment:Testing performed by : [address] [address] Albumin 3.8 3.5 - 5.0 g/dL NILSA Comment:Testing performed by : [address] [address] Alk phos 104 40 - 130 Units/L NILSA Comment:Testing performed by : [address] [address] ALT 19 7 - 45 Units/L NILSA Comment:Testing performed by : [address] [address] AST 26 10 - 45 Units/L NILSA Comment:Testing performed by : [facility], [address] [place] [address]., [address] Blood 08/05/2021 11:0 7 AM ORDER DISPATCHER CHIEF 08/05/2021 1:59 PM ORDER DISPATCHER CHIEF Markie Ryan MD LAB BLOOD ORDERABLES Final Re sult Performing Organization Address City/[facility]/ZIP Co de Phone Number NILSA [address] [facility] [place] [address] * (ABNORMAL) Albumin Creatinine Ratio, Urine (08/05/2021 11:07 AM ORDER DISPATCHER CHIEF) Albumin Ur 2,763.2 mg/L NILSA Comment: Interpretive Data No reference range established. Current interpretive data was last revised 2018. Testing performed by: [facility], [address] [place] [address]., [address] Creatinine Ur 186.9 mg/dL NILSA Comment: Interpretive Data No reference range established. Current interpretive data was last revised 2018. Testing performed by: [facility], [address] [place] [address]., [address] Albumin Creatinine Ratio, Ur 1,478(H) 1 - 29 mg/g NILSA Comment:Testing performed by : [address] [address] Urine 08/05/2021 11:0 7 AM ORDER DISPATCHER CHIEF 08/05/2021 2:02 PM ORDER DISPATCHER CHIEF us Markie Ryan MD LAB URINE ORDERABLES Final Re sult Performing Organization Address City/[facility]/ZIP Co de Phone Number NILSA [address] [place] [address] documented in this encounter Visit Diagnoses Diagnosis Diabetic nephropathy (CMS/HCC) (HCC) Type II or unspecified type diabetes mellitus with renal manifestations, not stated as uncontrolled Stage 3a chronic kidney disease (HCC) Anemia in stage 3a chronic kidney disease (HCC) Type 2 diabetes mellitus with diabetic neuropathy, with long-term current use of insulin (HCC) Stage 3b chronic kidney disease (HCC) Anemia, unspecified type Gastritis without bleeding, unspecified chronicity, unspecified gastritis type documented in this encounter Care Teams Patent Drafter Relationship Specialty Start Date End Date Cherelle Corcoran MD PCP - General Family Medicine 08/30/19 Mark Queen MD Consulting Physician Infectious Diseases 01/10/20 documented as of this encounter
--- OUTSIDE RECORDS SUMMARY | 2024-07-04 04:18 | XMS_ITS | Encounter Summary ---
Author Organization [facility] Medical Group Address [address] [place] [address] Care Team Providers Care Shelf Drier Operator Name Role Phone Cherelle Corcoran MD Primary Care Pro vider Mark Queen MD Unavailable [phone] Reason for Visit * Reason Comments Follow-up Med Management Encounter Details Date Type Department Care Team (Latest Contact Info) Description 07/01/2021 1:00 PM CHEMOTHERAPIST Telemedicine [facility] Medical [facility] [id number] [id number] [place] [id number] [address] Schizoaffective disorder, bipolar type (CMS/HCC) [...] on file Legal Sex Female 9:03 AM CHEMOTHERAPIST Gender Identity Female 02/08/2020 6:39 PM CDT Sexual Orientation Not on file documented as of this encounter Ordered Prescriptions Prescription Sig Dispense Quantity Refills Last Filled Start Date End Date haloperidoL (HALDOL) 5 mg tablet Take 1 tablet (5 mg total) by mouth nightly 30 tablet 07/01/2021 2 risperiDONE (RisperDAL) 2 mg tablet Take 1 tablet (2 mg total) by mouth nightly 30 tablet 07/01/2021 2 documented in this encounter Progress Notes * Adryan Swenson MD - 07/01/2021 1:00 PM CST Images from the original note were not included. This was a telemedicine visit with Barbara Chakraborty alone which took place via real- time video connection with Zoom. During the visit, I was located at home in [place], [place], and the patient was located at home in the [facility]. Time started: 1:00 p.m. Time ended: 1:30 p.m. My total encounter time on 07/01/2021 was 30 minutes which was spent in [...] (CMS/HCC) (HCC) (Primary) Assessment & Plan: Chronic, stable. +persistent auditory hallucinations Discontinue Risperdal in lieu of Haldol 5 mg HS. Poorly-controlled diabetes with neuropathy. Monitor at interval.. Continue to monitor at interval. Late onset Alzheimer's dementia without behavioral disturbance (HCC) Assessment & Plan: Chronic, persistent. Alert and oriented to person, place but not time. Continue to monitor. ESR elevated. Longstanding diabetes. Other orders - haloperidoL (HALDOL) 5 mg tablet; Take 1 tablet (5 mg total) by mouth nightly The patient was advised and agreed to contact the office to schedule 1 month follow-up. Full informed consent provided by the patient [...] female who is currently being seen for an initial appointment for psychiatric evaluation/treatment. The patient is [...] medications. Current issues reported by the patient: She is still taking Risperdal She has [...] Associated poorly controlled diabetes. Only previous psychiatric [id number] or 1997. Records unavailable to me at [...] Denies any nicotine or cigarettes. Born in [place]. Father was reeves and alcoholic. Positive relationship [...] gets in her moods She worked in [employer] at [employer] and [employer] - daughter - provides collateral information. The patient does not report any increased use of alcohol. The patient does not report any use of illicit drugs. REVIEW OF SYSTEMS Review of Systems Unable to perform ROS: Dementia Constitutional: Positive for activity change and fatigue. Negative for appetite change, chills, fever and unexpected weight change. HENT: Positive for rhinorrhea. Negative for congestion, sinus pressure, sinus pain, sore throat andtrouble swallowing. Eyes: Negative for photophobia, pain, discharge and visual disturbance. Respiratory: Positive for cough. Negative for choking, chest tightness, shortness of breath and wheezing. Cardiovascular: Positive for leg swelling (bilateral feet and up t oankles). Negative for chest pain and palpitations. Gastrointestinal: Positive for constipation. Negative for abdominal distention, abdominal pain, blood in stool and diarrhea. Endocrine: Negative for cold intolerance and heat intolerance. Genitourinary: Negative for difficulty urinating, dysuria and hematuria. Musculoskeletal: Negative for arthralgias, back pain, gait problem, joint swelling and myalgias. Skin: Positive for wound. Negative for color change and rash. Allergic/Immunologic: Negative. Neurological: Positive for numbness. Psychiatric/Behavioral: Positive for dysphoric mood and hallucinations (they're out to get me or harm me). Negative for agitation, behavioral problems, confusion, decreased concentration, self-injury, sleep disturbance and suicidal ideas. The patient is nervous/anxious. The patient is not hyperactive. PHYSICAL EXAM Physical Exam Constitutional: General: She is not in acute distress. Appearance: Normal appearance. She is obese. She is not toxic-appearing. HENT: Head: Normocephalic. Nose: Nose normal. Eyes: Extraocular Movements: Extraocular movements intact. Neurological: Mental Status: She is alert. Psychiatric: Mood and Affect: Mood normal. Behavior: Behavior normal. Thought Content: Thought content normal. Judgment: Judgment normal. DRUG ALLERGIES No Known Allergies PAST MEDICAL HISTORY Past Medical History: Diagnosis Date ??? Arthritis ??? Depression ??? Diabetic neuropathy (CMS/HCC) ([facility]) ??? Hyperlipidemia ??? Hypertension ??? Schizophrenia ([facility]) ??? Type 2 diabetes mellitus ([facility]) PAST SURGICAL HISTORY Past Surgical History: [...] LABS Lab Results Component Value Date WBC 8.8 02/07/2021 HGB 10.0 (L) 02/07/2021 HCT 31.5 (L) 02/07/2021 MCV 94.3 02/07/2021 RDWSD 48.9 (H) 02/07/2021 LABPLAT 284 02/07/2021 Lab Results Component Value Date ALT 14 02/07/2021 AST 16 02/07/2021 ALKPHOS 123 02/07/2021 BILITOT <0.2 02/07/2021 ALBUMIN 3.6 02/07/2021 Lab Results Component Value Date SODIUM 143 02/07/2021 POTASSIUM 3.8 02/07/2021 CO2 30 02/07/2021 BUNSER 25 02/07/2021 GLUCOSE 183 02/07/2021 CREATININE 1.40 (H) 02/07/2021 CHLORIDE 104 02/07/2021 CALCIUM 9.5 02/07/2021 PROTEIN 7.6 01/19/2017 Lab on 02/07/2021 Component Date Value ??? Protein, ur, quant 02/07/2021 265.0 ??? Creatinine Ur 02/07/2021 48.3 ??? Protein/creatinine ratio 02/07/2021 5,486.5* ??? Sodium 02/07/2021 143 ??? Potassium, pl 02/07/2021 3.8 ??? Chloride 02/07/2021 104 ??? CO2 02/07/2021 30 ??? Anion gap 02/07/2021 9 ??? BUN 02/07/2021 25 ??? Creatinine 02/07/2021 1.40* ??? Glucose 02/07/2021 183 ??? Calcium 02/07/2021 9.5 ? ? Bilirubin, total 02/07/2021 <0.2 ??? Protein, pl 02/07/2021 7.0 ??? Albumin 02/07/2021 3.6 ??? Alk phos 02/07/2021 123 ??? ALT 02/07/2021 14 ??? AST 02/07/2021 16 ??? WBC 02/07/2021 8.8 ??? Hgb 02/07/2021 10.0* ??? Hct 02/07/2021 31.5* ??? Plt 02/07/2021 284 ??? MPV 02/07/2021 10.4 ??? RBC 02/07/2021 3.34* ??? MCV 02/07/2021 94.3 ??? MCH 02/07/2021 29.9 ??? MCHC 02/07/2021 31.7* ??? RDW CV 02/07/2021 14.1 ??? RDW SD 02/07/2021 48.9* ??? NRBC abs 02/07/2021 0.00 ??? Hgb A1C 02/07/2021 8.4* ??? Estimated Average Glucose 02/07/2021 194 ??? PTH 02/07/2021 36.0 ??? Iron 02/07/2021 57 ??? TIBC 02/07/2021 231* ??? Transferrin saturation 02/07/2021 25 ??? Cholesterol 02/07/2021 133 ??? Triglycerides 02/07/2021 147 ??? HDL 02/07/2021 51 ??? LDL, calculated 02/07/2021 53 ??? Non-HDL Cholesterol 02/07/2021 82 ??? Chol/HDL ratio 02/07/2021 3 ??? CRP 02/07/2021 3.1 ??? Vitamin D, 25-hydroxy 02/07/2021 21.0* ??? TSH 02/07/2021 1.54 ??? Erythrocyte sedimentatio* 02/07/2021 94* ??? Vitamin B12 02/07/2021 684 ? ? [...] Date Value ??? Hemoglobin A1c % 10/16/2020 8.9* Office Visit on 10/02/2020 Component Date Value ??? Hemoglobin A1C, POC 10/02/2020 9.1 Office Visit on 08/28/2020 Component Date Value ??? Hemoglobin A1C, POC 08/28/2020 8.3 Office Visit on 07/24/2020 Component Date Value ??? Sodium 07/24/2020 140 ??? Potassium 07/24/2020 4.5 ??? Chloride 07/24/2020 100 ??? Carbon Dioxide 07/24/2020 31 ??? Anion Gap 07/24/2020 9 ??? Glucose 07/24/2020 178* ??? BUN 07/24/2020 28* ??? Creatinine 07/24/2020 1.5* ??? Kidney Disease Stage 07/24/2020 44 ??? Calcium 07/24/2020 9.7 ??? Total Protein 07/24/2020 7.4 ??? Albumin 07/24/2020 3.6 ??? Globulin 07/24/2020 3.8* ??? Albumin/Globulin Ratio 07/24/2020 0.9* ? ? Total Bilirubin 07/24/2020 <0.2 ??? AST 07/24/2020 17 ??? ALT 07/24/2020 7 ??? Alkaline Phosphatase 07/24/2020 118* ??? Hemoglobin A1c % 07/24/2020 8.0* Adryan Swenson MD [facility] Office: OTHERAPIST documented in this encounter Miscellaneous Notes * Assessment & Plan Note - Adryan Swenson MD - 07/01/2021 9:16 PM CHEMOTHERAPIST Associated Problem(s): Dementia (HCC) (Deleted) Chronic, persistent. Alert and oriented to person, place but not time. Continue to monitor. ESR elevated. Longstanding diabetes. OTHERAPIST * Assessment & Plan Note - Adryan Swenson MD - 07/01/2021 1:28 PM CHEMOTHERAPIST Associated Problem(s): Schizoaffective disorder, bipolar type (CMS/HCC) (HCC) Chronic, stable. +persistent auditory hallucinations Discontinue Risperdal in lieu of Haldol 5 mg HS. Poorly-controlled diabetes with neuropathy. Monitor at interval.. Continue to monitor at interval. OTHERAPIST OTHERAPIST documented in this encounter Plan of Treatment Upcoming Encounters Date Type Department Care Team (Latest Contact Info) Description 07/13/2024 9:00 AM CHEMOTHERAPIST Hospital Encounter [facility] [address] [place] [address] Jaya Grier MD [facility] [place] [id number] 07/13/2024 9:00 AM CHEMOTHERAPIST - 07/13/2024 9:30 AM CHEMOTHERAPIST Surgery [facility] [address] [place] [address] Jaya Grier MD [address] [place] [address] [place] [id number] ESOPHAGOGASTRODUODENOSCOPY Scheduled Procedures Name Priority Associated Diagnoses Date/Ti ma ESOPHAGOGASTRODUODENOSCOPY Anemia, unspecified type Gastritis without bleeding, unspecified chronicity, unspecified gastritis type 07/13/2024 9:00 AM CHEMOTHERAPIST COLONOSCOPY Iron deficiency anemia due to chronic [...] (2 mg total) by mouth nightly Reorder 11/20/2020 07/01/2021 risperiDONE (RisperDAL) 2 mg tablet Take 1 tablet (2 mg total) by mouth nightly Side effects 07/01/2021 07/01/2021 documented as of this encounter Care Teams Shelf Drier Operator Relationship Specialty Start Date End Date Cherelle Corcoran MD PCP - General Family Medicine 08/30/19 Mark Queen MD Consulting Physician Infectious Diseases 01/10/20 documented as of this encounter
--- OUTSIDE RECORDS SUMMARY | 2024-07-04 04:18 | XMS_ITS | Encounter Summary ---
Author Organization [facility] Address [address] [place] [address] Care Team Providers Care Soccer Referee Name Role Phone Cherelle Corcoran MD Primary Care Pro vider Mark Queen MD Unavailable [phone] Reason for Visit * Reason Comments Elevated Serum Creatinine Encounter Details Date Type Department Care Team (Late st Contact Info) Description 03/20/2021 1:15 PM CDT Office Visit [facility] Nephrology [address] [phone] Markie Ryan MD [address] [facility] [address] [address] Stage 3a chronic kidney disease (HCC) (Primary Dx); 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 Never 03/20/2021 Average Number of Drinks Not on file 021 Frequency of Binge Drinking Not on file 02/21 PHQ-2 Answer Date Recorded PHQ-2 Total Score (If total score is 3 or more points, staff should administer the PHQ-9) 0 01/08/2021 Comments No Sex and Gender Information Value Date Recorded Sex Assigned at Not on file Legal Sex Female 9:03 AM INTERNATIONAL LOGISTICS COORDINATOR Gender Identity Female 02/08/2020 6:39 PM CDT Sexual Orientation Not on file documented as of this encounter Last Filed Vital Signs Vital Sign Reading Time Taken Comments Blood Pressure 165/70 03/20/2021 1:33 PM CDT Pulse 90 03/20/2021 1:33 PM CDT Temperature 36.1 ??C (97 ??F) 03/20/2021 1:33 PM CDT Respiratory Rate - - Oxygen Saturation - - Inhaled Oxygen Concentration - - Weight 64.9 kg (143 lb) 03/20/2021 1:33 PM CDT Height 157.5 cm (5' 2 ) 03/20/2021 1:33 PM CDT Body Mass Index 26.16 03/20/2021 1:33 PM CDT documented in this encounter Ordered Prescriptions Prescription Sig Dispense Quantity Refills Last Filled Start Date End Date blood pressure monitor kit Check BP as instructed 1 kit 03/20/2021 3 lisinopriL (PRINIVIL,ZESTRIL) 20 mg tablet Take 1 tablet (20 mg total) by mouth daily 30 tablet 11 03/20/2021 2 pregabalin (LYRICA) 75 mg capsuleIndications :Other diabetic neurological complication associated with type 2 diabetes mellitus (HCC) Take 1 capsule (75 mg total) by mouth nightly 03/20/2021 1 documented in this encounter Progress Notes * Markie Ryan MD - 03/20/2021 1:15 PM CDT Images from the original note were not included. Subjective/Objective Patient ID: Barbara Chakraborty is a 70 y.o. female. Chief Complaint Elevated Serum Creatinine HPI This is a patient with chronic kidney disease. She has a history of diabetes since 1998 and a more recent history of hypertension. Prior echocardiogram showing normal LVEF. In 2019 she had an estimated 270 mg of albuminuria per day by spot ratio. She does have a history of schizophrenia and has haddifficulty controlling her glucose. Her most recent hemoglobin A1c has improved 8.4% from greater than 11 previously. Her serum creatinine stable at 1.4. Hemoglobin was 10 with normal iron stores/etcetera. Proteinuria has increased to greater than 5 g estimated per day by spot ratio however. She does note increased lower extremity edema and significant fatigue during the day Review of Systems Constitutional: Negative for appetite [...] Outpatient Medications Medication Sig Dispense Refill ??? atorvastatin (LIPITOR) 40 mg tablet Take 1 tablet (40 mg total) by mouth daily 90 tablet 3 ??? dulaglutide (TRULICITY) 4.5 mg/0.5 mL pen injector Inject 0.5 mL (4.5 mg total) under the skin once a week 6 mL 1 ??? empagliflozin (JARDIANCE) 25 mg tablet Take 1 tablet (25 mg total) by mouth daily before breakfast 90 tablet 1 ??? glucose 4 gram chewable tablet Take 4 tablets (16 g total) by mouth as needed for low blood sugar (less than 70) and let Dr. Corcoran know! 50 tablet 0 ??? hydroCHLOROthiazide (HYDRODIURIL) 25 mg tablet Take 1 tablet (25 mg total) by mouth daily 90 tablet 1 ??? insulin glargine (LANTUS) 100 unit/mL (3 mL) pen for injection Inject 50 Units under the skin nightly 45 mL 1 ??? lancets [facility] Check blood sugar up to 3 times a day 100 each 3 ??? lidocaine (LIDODERM) 5 % Place 1 patch on the skin daily Apply to painful area 12 hours per day, remove for 12 hours. 30 patch 1 ??? multivitamin with minerals tablet Take 1 tablet by mouth daily ??? omeprazole (PriLOSEC) 20 mg capsule Take 1 capsule (20 mg total) by mouth daily 90 capsule 0 ??? OneTouch Verio test strips strip TEST 3 TO 4 TIMES DAILY 400 each 1 ??? pen needle, diabetic 32 gauge x 3/16 needle Use to inject basaglar nightly 100 each 1 ??? pregabalin (LYRICA) 75 mg capsule Take 1 capsule (75 mg total) by mouth nightly ??? risperiDONE (RisperDAL) 2 mg tablet Take 1 tablet (2 mg total) by mouth nightly 30 tablet 3 ??? syringe with needle, insulin (INSULIN SYRINGE-NEEDLE U-100 MISC) 3 times a day ??? blood pressure monitor kit Check BP as instructed 1 kit 0 ??? lisinopriL (PRINIVIL,ZESTRIL) 20 mg tablet Take 1 tablet (20 mg total) by mouth daily 30 [id number] No current facility-administered medications for this visit. No Known Allergies Vitals BP 165/70 (BP Location: Left arm, Patient Position: Sitting) Pulse 90 Temp 36.1 ??C (97 ??F) (Skin) Ht 157.5 cm (5' 2 ) Wt 64.9 kg (143 lb) BMI 26.16 kg/m?? 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 The patient does have underlying schizophrenia and glucose control has been difficult although her A1c has been improving of late. Serum creatinine stable but increased proteinuria versus previous values. This most likely reflects diabetic nephropathy although will repeat in 3 months to evaluate for any continued trend that would suggest an alternate etiology but with her long-term history of diabetes significant chronic changes would be expected and unlikely to perform a kidney biopsy. Given her increase in proteinuria will increase her lisinopril to20 mg a day. I asked her to obtain a home blood pressure monitor. Blood pressure elevated in the off ice today but was well controlled when checked 2 weeks ago elsewhere. She does have anemia of CKD with no need for intervention at this point. Reports significant fatigue and imbalance during the day. I will have her convert her Lyrica to bedtime only to see if this improves her symptomatology. documented in this encounter Plan of Treatment Upcoming Encounters Date Type Department Care Team (Latest Contact Info) Description 07/13/2024 9:00 AM [facility] Hospital Encounter [facility] [address] [place] [address] Jaya Grier MD [address] [place] [id number] 07/13/2024 9:00 AM INTERNATIONAL LOGISTICS COORDINATOR - 07/13/2024 9:30 AM INTERNATIONAL LOGISTICS COORDINATOR Surgery [facility] [address] [place] [address] Jaya Grier MD [address] [facility] [address] [place] [address] [place] [id number] ESOPHAGOGASTRODUODENOSCOPY Scheduled Procedures Name Priority Associated Diagnoses Date/Ti me ESOPHAGOGASTRODUODENOSCOPY Anemia, unspecified type Gastritis without bleeding, unspecified chronicity, unspecified gastritis type 07/13/2024 9:00 AM INTERNATIONAL LOGISTICS COORDINATOR COLONOSCOPY Iron deficiency anemia due to chronic blood loss documented as of this encounter Results * (ABNORMAL) CBC with auto differential (08/05/2021 11:07 AM INTERNATIONAL LOGISTICS COORDINATOR) WBC 9.7 3.8 - 9.9 K/cumm NILSA Comment:Testing performed by : [address] [address] Hgb 10.2(L) 11.9 - 15.5 g/dL NILSA Comment:Testing performed by : [address] [address] Hct 32.7(L) 35.6 - 45.5 % NILSA Comment:Testing performed by : [address] [address] Plt 350 150 - 400 K/cumm NILSA Comment:Testing performed by : [address] [address] MPV 10.9 9.1 - 12.3 fL NILSA Comment:Testing performed by : [address] [address] RBC 3.45(L) 3.90 - 5.20 M/cumm NILSA Comment:Testing performed by : [address] [address] MCV 94.8 81.3 - 96.4 fL NILSA Comment:Testing performed by : [address] [address] MCH 29.6 27.1 - 33.3 pg NILSA Comment:Testing performed by : [address] [address] MCHC 31.2(L) 32.3 - 35.7 g/dL NILSA Comment:Testing performed by : [address] [address] RDW CV 15.0(H) 11.1 - 14.9 % NILSA RODRIGES Comment:Testing performed by : [address] [address] RDW SD 52.4(H) 35.7 - 48.1 fL NILSA Comment:Testing performed by : [address] [address] NRBC abs 0.00 0.00 - 0.01 K/cumm NILSA RODRIGES Comment:Testing performed by : [address] [address] Blood 08/05/2021 11:0 7 AM INTERNATIONAL LOGISTICS COORDINATOR 08/05/2021 1:58 PM INTERNATIONAL LOGISTICS COORDINATOR us Markie Ryan MD LAB BLOOD ORDERABLES Final Re sult NILSA [address] [facility] Department of Laboratories [place], [place] [id number] * (ABNORMAL) Comprehensive metabolic panel (08/05/2021 11:07 AM INTERNATIONAL LOGISTICS COORDINATOR) Sodium 144 135 - 145 mmol/L NILSA RODRIGES Comment:Testing performed by : [address] [address] Potassium, pl 4.3 3.3 - 4.9 mmol/L NILSA Comment:Testing performed by : [address] [address] Chloride 106 97 - 110 mmol/L NILSA Comment:Testing performed by : [address] [address] CO2 23 22 - 32 mmol/L NILSA Comment:Testing performed by : [address] [address] Anion gap 15 2 - 15 mmol/L NILSA RODRIGES Comment:Testing performed by : [address] [address] BUN 24 8 - 25 mg/dL [facility] Comment:Testing performed by : [address] [address] Creatinine 2.20(H) 0.60 - 1.10 mg/dL NILSA Comment:Testing performed by : [address] [address] Glucose 119 70 - 199 mg/dL [facility] Comment: Interpretive Data Fasting glucose [...] was last revised 2017. Testing performed by: [address] [address] Calcium 9.5 8.5 - 10.3 mg/dL [facility] Comment:Testing performed by : [address] [address] Bilirubin, total 0.4 0.1 - 1.2 mg/dL [facility] Comment:Testing performed by : [address] [address] Protein, pl 7.8 6.5 - 8.5 g/dL [facility] Comment:Testing performed by : [address] [address] Albumin 3.8 3.5 - 5.0 g/dL [facility] Comment:Testing performed by : [address] [address] Alk phos 104 40 - 130 Units/L NILSA Comment:Testing performed by : [address] [address] ALT 19 7 - 45 Units/L [facility] Comment:Testing performed by : [address] [address] AST 26 10 - 45 Units/L NILSA RODRIGES Comment:Testing performed by : [address] [address] Blood 08/05/2021 11:0 7 AM INTERNATIONAL LOGISTICS COORDINATOR 08/05/2021 1:59 PM INTERNATIONAL LOGISTICS COORDINATOR Markie Ryan MD LAB BLOOD ORDERABLES Final Re sult Performing Organization Address [facility] Co de Phone Number NILSA [address] [facility] [place] [address] * (ABNORMAL) Albumin Creatinine Ratio, Urine (08/05/2021 11:07 AM INTERNATIONAL LOGISTICS COORDINATOR) Albumin Ur 2,763.2 mg/L NILSA RODRIGES Comment: Interpretive Data No reference range established. Current interpretive data was last revised 2018. Testing performed by: [facility], [address] [place] [address]., [id number] Creatinine Ur 186.9 mg/dL NILSA Comment: Interpretive Data No reference range established. Current interpretive data was last revised 2018. Testing performed by: [facility], [address] [place] [address]., [id number] Albumin Creatinine Ratio, Ur 1,478(H) 1 - 29 mg/g NILSA Comment:Testing performed by : [facility], [address] [place] [address]., [address] Urine 08/05/2021 11:0 7 AM INTERNATIONAL LOGISTICS COORDINATOR 08/05/2021 2:02 PM INTERNATIONAL LOGISTICS COORDINATOR Markie Ryan MD LAB URINE ORDERABLES Final Re sult Performing Organization Address [facility] Co de Phone Number NILSA [address] [facility] [place] [address] documented in this encounter Visit Diagnoses Diagnosis Stage 3a chronic kidney disease (HCC)- Primary Type 2 DM with CKD and hypertension Diabetic nephropathy (CMS/HCC) (HCC) Type II or unspecified type diabetes mellitus with renal manifestations, not stated as uncontrolled Benign hypertensive kidney disease with chronic kidney disease stage I through stage IV, or unspecified(403.10) Benign hypertensive kidney disease with chronic kidney disease stage I through stage IV, or unspecified Anemia in stage 3a chronic kidney disease (HCC) Other diabetic neurological complication associated with type 2 diabetes mellitus (HCC) Anemia, unspecified type Gastritis without bleeding, unspecified chronicity, unspecified gastritis type documented in this encounter Discontinued Medications Medication Sig Discontinue Reason Start Date End Da te lisinopriL (PRINIVIL,ZESTRIL) 10 mg tabletIndications:Hyperte nsion associated with diabetes (HCC) Take 1 tablet (10 mg total) by mouth daily Therapy completed 10/02/2020 03/20/2021 pregabalin (LYRICA) 75 mg capsuleIndications:Other diabetic neurological complication associated with type 2 diabetes mellitus (HCC) Take 1 capsule (75 mg total) by mouth 2 (two) times a day 02/21/2021 03/20/2021 documented as of this encounter Care Teams Soccer Referee Relationship Specialty Start Date End Date Cherelle Corcoran MD PCP - General Family Medicine 08/30/19 Mark Queen MD Consulting Physician Infectious Diseases 01/10/20 documented as of this encounter
--- OUTSIDE RECORDS SUMMARY | 2024-07-04 04:18 | XMS_ITS | Encounter Summary ---
Author Organization [facility] Address [address] [facility] [address] [place] [address] Care Team Providers Care Cigarette Package Examiner Name Role Phone Cherelle Corcoran MD Primary Care Pro vider Mark Queen MD Unavailable [phone] Reason for Referral * Diagnostic Imaging (Routine) - Closed Specialty Diagnoses / Procedures Referred By Contac t Referred To Contact Diagnoses Acute midline low back pain with right-sided sciatica Procedures XR Spine Lumbar 2 Or 3 Vw Cherelle Corcoran MD Phone: tel: fax: [address] [address] Referral ID Status Reason Start Date Expiration Date Visits Re quested Visits Authorized [id number] Closed 05/28/2021 06/27/2022 1 1 OR BUSINESS MANAGER Reason for Visit * Reason Comments Follow-up Encounter Details Date Type Department Care Team (Latest Contact Info) Description 05/28/2021 3:15 PM SENIOR BUSINESS MANAGER Office Visit [facility] Primary Care [facility] [phone] Cherelle Corcoran MD [address] [place] [phone] Uncontrolled type 2 diabetes mellitus with hyperglycemia (CMS/HCC) (HCC) (Primary Dx); Hypertension associated with diabetes (HCC); Other diabetic neurological complication associated with type 2 diabetes mellitus (HCC); Peripheral edema; Acute midline low back pain with right-sided sciatica Social History Tobacco Use Types Packs/Day Years Used Date Smoking Tobacco: Never Smokeless Tobacco: Never Alcohol Use Standard Drinks/Week Comments Not Currently 0 (1 standard drink = 0.6 oz pur e alcohol) AUDIT-C Answer Date Recorded Q1: How often do you have a drink containing alc ohol? Never 05/28/2021 Average Number of Drinks Not on file 021 Frequency of Binge Drinking Not on file 12/2020 PHQ-2 Answer Date Recorded PHQ-2 Total Score (If total score is 3 or more points, staff should administer the PHQ-9) 0 01/08/2021 Comments No Sex and Gender Information Value Date Recorded Sex Assigned at Not on file Legal Sex Female 9:03 AM SENIOR BUSINESS MANAGER Gender Identity Female 02/08/2020 6:39 PM CDT Sexual Orientation Not on file documented as of this encounter Last Filed Vital Signs Vital Sign Reading Time Taken Comments Blood Pressure 158/90 05/28/2021 3:35 PM SENIOR BUSINESS MANAGER Pulse 88 05/28/2021 3:35 PM SENIOR BUSINESS MANAGER Temperature 37.1 ??C (98.7 ??F) 05/28/2021 3:35 PM CS T Respiratory Rate 18 05/28/2021 3:35 PM SENIOR BUSINESS MANAGER Oxygen Saturation 99% 05/28/2021 3:35 PM SENIOR BUSINESS MANAGER Inhaled Oxygen Concentration - - Weight 68.1 kg (150 lb 1.6 oz) 05/28/2021 3:35 P M SENIOR BUSINESS MANAGER Height 157 cm (5' 1.81 ) 05/28/2021 3:35 PM SENIOR BUSINESS MANAGER Body Mass Index 27.62 05/28/2021 3:35 PM SENIOR BUSINESS MANAGER documented in this encounter Ordered Prescriptions Prescription Sig Dispense Quantity Refills Last Filled Start Date End Date insulin glargine (LANTUS) 100 unit/mL (3 mL) pen for injectionIndication s:Uncontrolled type 2 diabetes mellitus with hyperglycemia (HCC) Inject 55 Units under the skin nightly 50 mL 1 05/28/2021 2 miscellaneous medical supply (Blood Pressure Cuff) miscIndications:Hyp ertension associated with diabetes ([facility]) Use to check blood pressure daily 1 each 1 05/28/2021 2 conner.stocking,th igh,reg,med miscIndications:Per ipheral edema Wear as much as possible 2 each 1 05/28/2021 4 documented in this encounter Progress Notes * Cherelle Corcoran MD - 05/28/2021 3:15 PM CST Images from the original note were not included. Assessment/Plan: Assessment/Plan Diagnoses and all orders for this visit: Uncontrolled type 2 diabetes mellitus with hyperglycemia ([facility]/HCC) ([facility]) (Primary) Assessment & Plan: Increase lantus to 55 units nightly Continue jardiance 25mg Continue trulicity 4.5mg weekly Orders: - insulin glargine (LANTUS) 100 unit/mL (3 mL) pen for injection; Inject 55 Units under the skin nightly Hypertension associated with diabetes ([facility]) Assessment & Plan: Blood pressure above goal, but previously within normal limits Continue 25mg hydrochlorothiazide & 20mg lisinopril If remains elevated will need to adjust medications Orders: - miscellaneous medical supply (Blood Pressure Cuff) misc; Use to check blood pressure daily Other diabetic neurological complication associated with type 2 diabetes mellitus ([facility]) Assessment & Plan: Continue lyrica 150mg nightly Peripheral edema Comments: Continue hctz Advise elevating above level of heart when sitting Wear compression stockings as much as possible Orders: - conner.stocking,thigh,reg,med misc; Wear as much as possible Acute midline low back pain with right-sided sciatica Comments: XR to r/o fracture given fall If negative given handout on PT exercises Continue lidocaine patches Orders: - XR Spine Lumbar 2 Or 3 Vw; Future F/u 3 weeks or sooner as needed if symptoms not improving or worsen. Strict return/ED precautions discussed. Subjective: Barbara Chakraborty is a 70 y.o. female here for follow up diabetes mellitus HPI Chief Complaint Patient presents with ??? Follow-up Back pain: mid low back, worsened after fall onto concrete. Has pain radiating down R leg Diabetes mellitus: 4.5mg trulicity, 50 units lantus, & 25mg jardiance (daughter is giving to her). No hypoglycemia. States blood sugar in 200's in AM, this am was 150! Neuropathy improved on lyrica 150mg nightly Hypertension: on 20mg lisinopril &??25mg hydrochlorothiazide (for peripheral edema, but still present) Review of Systems Constitutional: Negative for fever. HENT: Negative for sore throat. Respiratory: Negative for cough and shortness of breath. Cardiovascular: Positive for leg swelling. Negative for chest pain. Gastrointestinal: Negative for diarrhea and vomiting. Musculoskeletal: Negative for myalgias. Neurological: Negative for headaches. Objective: Vital signs were reviewed. Vitals: 05/28/21 1535 BP: 158/90 BP Location: Left arm Patient Position: Sitting Pulse: 88 Resp: 18 Temp: 37.1 ??C (98.7 ??F) TempSrc: Temporal SpO2: 99% Weight: 68.1 kg (150 lb 1.6 oz) Height: 157 cm (5' 1.81 ) Physical Exam Gen: NAD, comfortable, appears as stated age Eyes: no conjunctival injection, EOMI ENMT: external ears symmetric CV: Regular rate, bilateral leg swelling Pulm: no increased work of breathing Skin: no rashes or nodules, warm and dry MSK/Neuro: symmetric limb movement, no midline lumbar TTP, + straight leg test on R Psych: alert and oriented to person/place/time, appropriate judgment and insight Cherelle Corcoran MD OR BUSINESS MANAGER documented in this encounter Miscellaneous Notes * Assessment & Plan Note - Cherelle Corcoran MD - 05/28/2021 4:58 PM CSTAssociated Problem(s): Primary hypertension Blood pressure above goal, but previously within normal limits Continue 25mg hydrochlorothiazide & 20mg lisinopril If remains elevated will need to adjust medications OR BUSINESS MANAGER * Assessment & Plan Note - Cherelle Corcoran MD - 05/28/2021 4:58 PM CSTAssociated Problem(s): Diabetic neuropathy (HCC) (Resolved 05/16/2024) Continue lyrica 150mg nightly OR BUSINESS MANAGER * Assessment & Plan Note - Cherelle Corcoran MD - 05/28/2021 4:57 PM CSTAssociated Problem(s): Type 2 diabetes mellitus with diabetic neuropathy, with long-term current use of insulin (HCC) Increase lantus to 55 units nightly Continue jardiance 25mg Continue trulicity 4.5mg weekly OR BUSINESS MANAGER documented in this encounter Plan of Treatment Upcoming Encounters Date Type Department Care Team (Latest Contact Info) Description 07/13/2024 9:00 AM SENIOR BUSINESS MANAGER Hospital Encounter [facility] [address] [place] [phone] Jaya Grier MD [address] [place] [address] [address] [place] [phone] 07/13/2024 9:00 AM SENIOR BUSINESS MANAGER - 07/13/2024 9:30 AM SENIOR BUSINESS MANAGER Surgery [facility] [address] [place] [address] Jaya Grier MD [address] [place] [address] [address] [place] [address] ESOPHAGOGASTRODUODENOSCOPY Scheduled Procedures Name Priority Associated Diagnoses Date/Ti me ESOPHAGOGASTRODUODENOSCOPY Anemia, unspecified type Gastritis without bleeding, unspecified chronicity, unspecified gastritis type 07/13/2024 9:00 AM SENIOR BUSINESS MANAGER COLONOSCOPY Iron deficiency anemia due to chronic blood loss documented as of this encounter Results * XR Spine Lumbar 2 Or 3 Vw (05/28/2021 4:52 PM SENIOR BUSINESS MANAGER) Anatomical Region Laterality Modality Spine N/A Computed Radiogr aphy 05/29/2021 1:04 PM SENIOR BUSINESS MANAGER Narrative 05/29/2021 1:07 PM SENIOR BUSINESS MANAGER EXAM DESCRIPTION: ?? XR SPINE LUMBAR 2 OR 3 VIEWS REASON FOR STUDY: ?? BACK PAIN, AFTER TRAUMA ?? Patient reports she fell 1 week ago, lower back pain radiating down the right leg ?? TECHNIQUE: ?? Frontal, lateral and cone-down lateral ??radiographic views acquired of the lumbar spine. COMPARISON: ?? CT examination dated 01/19/2017 FINDINGS: SEGMENTATION: ?? Normal. ??No transitional anatomy. ALIGNMENT: ?? There is straightening of the lumbar lordosis. ??This could be positional or related to spasm. VERTEBRAE: ?? Vertebral body heights are well maintained. ??There are endplate osteophytes noted at multiple levels. ??There is no acute fracture or subluxation. ??Facets are normally aligned. DISCS: ?? There is disc space narrowing at the L4-5 level. OTHER: ?? No other significant finding. IMPRESSION: ?? 1. ?? Degenerative changes as discussed. ??No acute osseous abnormality. ??If radicular symptoms persist, MRI can be considered for further assessment. THIS IS AN ELECTRONICALLY VERIFIED FINAL REPORT 05/29/2021 1:07 PM - Electronically signed by ??Rafaela Simmons M.D. TB: TAHIR D: ??05/29/2021 1:07 PM T: ??05/29/2021 1:07 PM Report ID: [id number] Reading Location: ??[facility] Procedure Note Rafaela Simmons MD - 05/29/2021 EXAM DESCRIPTION: XR SPINE LUMBAR 2 OR 3 VIEWS REASON FOR STUDY: BACK PAIN, AFTER TRAUMA Patient reports she fell 1 week ago, lower back pain radiating down theright leg TECHNIQUE: Frontal, lateral and cone-down lateral radiographic views acquired of the lumbar spine. COMPARISON: CT examination dated 01/19/2017 FINDINGS: SEGMENTATION: Normal. No transitional anatomy. ALIGNMENT: There is straightening of the lumbar lordosis. This could be positional or related to spasm. VERTEBRAE: Vertebral body heights are well maintained. There areendplate osteophytes noted at multiple levels. There is no acute fracture or subluxation. Facets are normally aligned. DISCS: There is disc space narrowing at the L4-5 level. OTHER: No other significant finding. IMPRESSION: 1. Degenerative changes as discussed. No acute osseous abnormality. If radicular symptoms persist, MRI can be considered for further assessment. THIS IS AN ELECTRONICALLY VERIFIED FINAL REPORT 05/29/2021 1:07 PM - Electronically signed by Rafaela Simmons M.D. TB: TB Report ID: [id number] Reading Location: [facility] Cherelle Corcoran MD IMG XR PROCEDURES Final Result documented in this encounter Visit Diagnoses Diagnosis Uncontrolled type 2 diabetes mellitus with hyperglycemia (HCC)- Primary Hypertension associated with diabetes (HCC) Unspecified essential hypertension Other diabetic neurological complication associated with type 2 diabetes mellitus (HCC) Peripheral edema Edema Acute midline low back pain with right-sided sciatica Acute midline low back pain with right-sided sciatica Anemia, unspecified type Gastritis without bleeding, unspecified chronicity, unspecified gastritis type documented in this encounter Discontinued Medications Medication Sig Discontinue Reason Start Date End Da te insulin glargine (LANTUS) 100 unit/mL (3 mL) pen for injectionIndications:Unco ntrolled type 2 diabetes mellitus with hyperglycemia (HCC) Inject 50 Units under the skin nightly Reorder 03/07/2021 05/28/2021 documented as of this encounter Historical Medications * This list may reflect changes made after this encounter. Medication Sig Dispense Quantity Refills Last Filled Start D ate End Date jbhgbwck-cevhfbzab-ds xAMETHasone (MAXITROL) 3.5mg/mL-10,000 unit/mL-0.1 % ophthalmic suspension 05/24/2021 added in this encounter Care Teams Cigarette Package Examiner Relationship Specialty Start Date End Date Cherelle Corcoran MD PCP - General Family Medicine 08/30/19 Mark Queen MD Consulting Physician Infectious Diseases 01/10/20 documented as of this encounter
--- OUTSIDE RECORDS SUMMARY | 2024-07-04 04:18 | XMS_ITS | Encounter Summary ---
Author Organization [facility] Address [address] [place] [address] Care Team Providers Care Fur Nailer Name Role Phone Cherelle Corcoran MD Primary Care Pro vider Mark Queen MD Unavailable [phone] Reason for Referral * Diagnostic Imaging (Routine) - Closed Specialty Diagnoses / Procedures Referred By Contac t Referred To Contact Diagnoses Acute midline low back pain with right-sided sciatica Procedures XR Spine Lumbar 2 Or 3 Cherelle Flores MD Phone: tel: fax: [address] [address] Referral ID Status Reason Start Date Expiration Date Visits Re quested Visits Authorized [id number] Closed 05/28/2021 06/27/2022 1 1 SORTER AND BAGGER Reason for Visit * Diagnostic Imaging (Routine) - Closed Specialty Diagnoses / Procedures Referred By Maryse t Referred To Contact Diagnoses Acute midline low back pain with right-sided sciatica Procedures XR Spine Lumbar 2 Or 3 Cherelle Flores MD Phone: tel: fax: [facility] [address] [place] [phone] Referral ID Status Reason Start Date Expiration Date Visits Re quested Visits Authorized [id number] Closed 05/28/2021 06/27/2022 1 1 Encounter Details Date Type Department Care Team (Latest Contact Info) Description 05/28/2021 4:18 PM PIN SORTER AND BAGGER - 05/28/2021 11:59 PM PIN SORTER AND BAGGER Hospital Encounter [facility] [address] [place] [phone] Acute midline low back pain with right-sided sciatica Discharge Disposition: Discharge to home or self [...] on file Legal Sex Female 9:03 AM PIN SORTER AND BAGGER Gender Identity Female 02/08/2020 6:39 PM CDT [...] 12 hours. 90 patch 1 04/05/2021 2 atorvastatin (LIPITOR) 40 mg tablet Take 1 tablet (40 mg total) by mouth daily 90 tablet 3 02/18/2021 2 blood pressure monitor kit Check BP as instructed 1 kit 03/20/2021 3 conner.stocking,th igh,reg,med miscIndications:Per ipheral edema Wear as much as possible 2 each 1 05/28/2021 4 dulaglutide (TRULICITY) 4.5 mg/0.5 mL pen injectorIndications :Uncontrolled type 2 diabetes mellitus with hyperglycemia (HCC) Inject 0.5 mL (4.5 mg total) under the skin once a week 6 mL 1 01/08/2021 2 empagliflozin (JARDIANCE) 25 mg tabletIndications:t ype 2 diabetes mellitus Take 1 tablet (25 mg total) by mouth daily before breakfast 90 tablet 1 02/08/2021 2 hydroCHLOROthiazide (HYDRODIURIL) 25 mg tabletIndications:H ypertension associated with diabetes (HCC) Take 1 tablet (25 mg total) by mouth daily 90 tablet 1 03/07/2021 2 insulin glargine (LANTUS) 100 unit/mL (3 mL) pen for injectionIndication s:Uncontrolled type 2 diabetes mellitus with hyperglycemia (HCC) Inject 55 Units under the skin nightly 50 mL 1 05/28/2021 2 lancets miscIndications:Unc ontrolled type 2 diabetes mellitus with hyperglycemia (HCC) Check blood sugar up to 3 times a day 100 each 3 11/13/2020 3 lisinopriL (PRINIVIL,ZESTRIL) 20 mg tablet Take 1 tablet (20 mg total) by mouth daily 30 tablet 11 03/20/2021 2 miscellaneous medical supply (Blood Pressure Cuff) miscIndications:Hyp ertension associated with diabetes (HCC) Use to check blood pressure daily 1 each 1 05/28/2021 2 multivitamin with minerals tablet Take 1 tablet by mouth daily 3 neomycin-polymyxin- dexAMETHasone (MAXITROL) 3.5mg/mL-10,000 unit/mL-0.1 % ophthalmic suspension 05/24/2021 2 omeprazole (PriLOSEC) 20 mg capsule Take 1 capsule (20 mg total) by mouth daily 90 capsule 01/16/2021 1 OneTouch Verio test strips stripIndications:Un controlled type 2 diabetes mellitus with hyperglycemia (HCC) TEST 3 TO 4 TIMES DAILY 400 each 1 08/10/2020 2 pen needle, diabetic 32 gauge x 3/16 needleIndications:U ncontrolled type 2 diabetes mellitus with hyperglycemia (HCC) Use to inject basaglar nightly 100 each 1 01/17/2020 2 pregabalin (LYRICA) 150 mg capsuleIndications: Other diabetic neurological complication associated with type 2 diabetes mellitus (HCC) Take 1 capsule (150 mg total) by mouth nightly 30 capsule 05/20/2021 2 risperiDONE (RisperDAL) 2 mg tablet Take 1 tablet (2 mg total) by mouth nightly 30 tablet 3 11/20/2020 2 syringe with needle, insulin (INSULIN SYRINGE-NEEDLE U-100 MISC) 3 times a day 09/12/2017 3 documented as of this encounter Discharge Disposition Disposition Code Departure Means Destination Discharge to home or self care documented in this encounter Plan of Treatment Upcoming Encounters Date Type Department Care Team (Latest Contact Info) Description 07/13/2024 9:00 AM [facility] Hospital Encounter [facility] [address] [place] [address] Jaya Grier MD [address] [address] GA[address] [place] [phone] 07/13/2024 9:00 AM PIN SORTER AND BAGGER - 07/13/2024 9:30 AM [facility] Surgery [facility] [address] [place] [address] Jaya Grier MD [address] [place] [address] ESOPHAGOGASTRODUODENOSCOPY Scheduled Procedures Name Priority Associated Diagnoses Date/Ti de ESOPHAGOGASTRODUODENOSCOPY Anemia, unspecified type Gastritis without bleeding, unspecified chronicity, unspecified gastritis type 07/13/2024 9:00 AM PIN SORTER AND BAGGER COLONOSCOPY Iron deficiency anemia due to chronic blood loss documented as of this encounter Procedures Procedure Name Priority Date/Time Associated Diagnosis Comments XR SPINE LUMBAR 2 OR 3 VIEWS Schedule Routine, Read Routine (OP Routine) 05/28/2021 4:52 PM PIN SORTER AND BAGGER Acute midline low back pain with right-sided sciatica documented in this encounter Results * XR Spine Lumbar 2 Or 3 Vw (05/28/2021 4:52 PM PIN SORTER AND BAGGER) Anatomical Region Laterality Modality Spine N/A Computed Radiogr aphy 05/29/2021 1:04 PM PIN SORTER AND BAGGER Narrative 05/29/2021 1:07 PM PIN SORTER AND BAGGER EXAM DESCRIPTION: ?? XR SPINE LUMBAR 2 [...] PM T: ??05/29/2021 1:07 PM Report ID: [id number] Reading Location: [facility] Procedure Note Rafaela Simmons [...] Rafaela Simmons M.D. TB: TB Report ID: [id number] Reading [facility] Cherelle Corcoran MD IMG XR PROCEDURES Final Result documented in this encounter Visit Diagnoses Diagnosis Acute midline low back pain with right-sided sciatica Anemia, unspecified type Gastritis without bleeding, unspecified chronicity, unspecified gastritis type documented in this encounter Care Teams Fur Nailer Relationship Specialty Start Date End Date Cherelle Corcoran MD PCP - General Family Medicine 08/30/19 Mark Queen MD Consulting Physician Infectious Diseases 01/10/20 documented as of this encounter
--- OUTSIDE RECORDS SUMMARY | 2024-07-04 04:18 | XMS_ITS | Encounter Summary ---
Author Organization [facility] Address [address] [facility] [place] [address] Care Team Providers Care Cyber Threat Analyst Name Role Phone Cherelle Corcoran MD Primary Care Pro vider Mark Queen MD Unavailable [phone] Encounter Details Date Type Department Care Team (Late st Contact Info) Description 08/07/2021 Telephone [facility] Primary Care [address] [facility] [address] [place] [address] Cherelle Corcoran MD [facility] [address] [place] [address] Social History Tobacco Use Types [...] on file Legal Sex Female 9:03 AM PAPER CONSERVATOR Gender Identity Female 02/08/2020 6:39 PM CDT Sexual Orientation Not on file documented as of this encounter Miscellaneous Notes * Telephone Encounter - Cherelle Corcoran MD - 08/07/2021 5:14 PM CST Called, in [facility] ED now, will follow up after work up R CONSERVATOR * Telephone Encounter - Yoly Elkins, DANIELLE - 08/07/2021 4:05 PM CST Spoke to patient's daughter-Areli, reports patient continues to be lethargic, leg weakness, stated Creatinine level is elevated again, wants to know if blood culture results have returned from [place], and is thinking about taking patient to [place] for evaluation. CB#[phone] R CONSERVATOR documented in this encounter Plan of Treatment Upcoming Encounters Date Type Department Care Team (Latest Contact Info) Description 07/13/2024 9:00 AM PAPER CONSERVATOR Hospital Encounter [facility] [address] [place] [address] Jaya Grier MD [facility] [address] [place] [phone] 07/13/2024 9:00 AM PAPER CONSERVATOR - 07/13/2024 9:30 AM PAPER CONSERVATOR Surgery [facility] [address] [place] [address] Jaya Grier MD [address] [address] [place] [address] ESOPHAGOGASTRODUODENOSCOPY Scheduled Procedures Name Priority Associated Diagnoses Date/Ti me ESOPHAGOGASTRODUODENOSCOPY Anemia, unspecified type Gastritis without bleeding, unspecified chronicity, unspecified gastritis type 07/13/2024 9:00 AM PAPER CONSERVATOR COLONOSCOPY Iron deficiency anemia due to chronic blood loss documented as of this encounter Visit Diagnoses Not on filedocumented in this encounter Care Teams Cyber Threat Analyst Relationship Specialty Start Date End Date Cherelle Corcoran MD PCP - General Family Medicine 08/30/19 Mark Queen MD Consulting Physician Infectious Diseases 01/10/20 documented as of this encounter
--- OUTSIDE RECORDS SUMMARY | 2024-07-04 04:18 | XMS_ITS | Encounter Summary ---
Author Organization [facility] Healthcare Address [address] [place] [address] Care Team Providers Care Telephone Quotation Clerk Name Role Phone Cherelle Corcoran MD Primary Care Pro vider Mark Queen MD Unavailable [phone] Reason for Referral * Diagnostic Imaging (Routine) - Closed Specialty Diagnoses / Procedures [facility]erred To Contact Diagnoses Post-menopause Procedures Dexa Axial Skeleton Bone Density 1 or 2 Site Cherelle Corcoran MD Phone: tel: fax: [facility] Referral ID Status Reason Start Date Expiration Date Visits Re quested Visits Authorized [id number] Closed 02/14/2020 03/15/2021 1 1 Reason for Visit * Diagnostic Imaging (Routine) - Closed Specialty Diagnoses / Procedures Referred By Maryse lama Referred To Contact Diagnoses Post-menopause Procedures Dexa Axial Skeleton Bone Density 1 or 2 Site Cherelle Corcoran MD Phone: tel: fax: [facility] Referral ID Status Reason Start Date Expiration Date Visits Re quested Visits Authorized [id number] Closed 02/14/2020 03/15/2021 1 1 Encounter Details Date Type Department Care Team (Latest Contact Info) Description 01/08/2021 3:00 PM CDT - 01/08/2021 11:59 PM CDT Hospital Encounter [facility] Medical Office Bldg 1 [facility] [address] [facility] [address] [place] [address] Post-menopause Discharge Disposition: Discharge to home or self [...] on file Legal Sex Female 9:03 AM 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 Corcoran know! 50 tablet 10/16/2020 2 aspirin 325 mg tabletIndications:P ain Take 325 mg by mouth every 6 (six) hours as needed for pain. Indications: pain 1 atorvastatin (LIPITOR) 40 mg tablet TAKE 1 TABLET(40 MG) BY MOUTH DAILY 90 tablet 11/21/2020 1 dulaglutide (TRULICITY) 4.5 mg/0.5 mL pen injectorIndications :Uncontrolled type 2 diabetes mellitus with hyperglycemia (HCC) Inject 0.5 mL (4.5 mg total) under the skin once a week 6 mL 1 01/08/2021 2 empagliflozin (JARDIANCE) 10 mg tabletIndications:t ype 2 diabetes mellitus Take 1 tablet (10 mg total) by mouth daily before breakfast 30 tablet 1 11/13/2020 1 lancets miscIndications:Unc ontrolled type 2 diabetes mellitus with hyperglycemia (HCC) Check blood sugar up to 3 times a day 100 each 3 11/13/2020 3 LANTUS 100 unit/mL (3 mL) pen for injectionIndication s:Uncontrolled type 2 diabetes mellitus with hyperglycemia (HCC) ADMINISTER 42 UNITS UNDER THE SKIN DAILY 15 mL 1 12/10/2020 1 lidocaine (LIDODERM) 5 %Indications:Acute upper back pain Place 1 patch on the skin daily Apply to painful area 12 hours per day, remove for 12 hours. 30 patch 1 07/24/2020 1 lisinopriL (PRINIVIL,ZESTRIL) 10 mg tabletIndications:H ypertension associated with diabetes (HCC) Take 1 tablet (10 mg total) by mouth daily 90 tablet 10/02/2020 1 multivitamin with minerals tablet Take 1 tablet by mouth daily 3 omeprazole (PriLOSEC) 20 mg capsule Take 1 capsule (20 mg total) by mouth daily 90 capsule 07/24/2020 1 OneTouch Verio test strips stripIndications:Un controlled type 2 diabetes mellitus with hyperglycemia (HCC) TEST 3 TO 4 TIMES DAILY 400 each 1 08/10/2020 2 pen needle, diabetic 32 gauge x 3/16 needleIndications:U ncontrolled type 2 diabetes mellitus with hyperglycemia (HCC) Use to inject basaglar nightly 100 each 1 01/17/2020 2 risperiDONE (RisperDAL) 2 mg tablet Take 1 tablet (2 mg total) by mouth nightly 30 tablet 3 11/20/2020 2 syringe with needle, insulin (INSULIN SYRINGE-NEEDLE U-100 MIS) 3 times a day 09/12/2017 3 documented as of this encounter Discharge Disposition Disposition Code Departure Means Destination Discharge to home or self care documented in this encounter Plan of Treatment Upcoming Encounters Date Type Department Care Team (Latest Contact Info) Description 07/13/2024 9:00 AM CRUDE UNIT OPERATOR Hospital Encounter [facility] GI Lab [address] [place] [address] Jaya Grier MD [address] [facility] [address] [place] [address] 07/13/2024 9:00 AM CRUDE UNIT OPERATOR - 07/13/2024 9:30 AM CRUDE UNIT OPERATOR Surgery [facility] GI Lab [address] [place] [address] Jaya Grier MD [address] [facility] [address] [place] [address] ESOPHAGOGASTRODUODENOSCOPY Scheduled Procedures Name Priority Associated Diagnoses Date/Ti me ESOPHAGOGASTRODUODENOSCOPY Anemia, unspecified type Gastritis without bleeding, unspecified chronicity, unspecified gastritis type 07/13/2024 9:00 AM CRUDE UNIT OPERATOR COLONOSCOPY Iron deficiency anemia due to chronic blood loss documented as of this encounter Procedures Procedure Name Priority Date/Time Associated Diagnosis Comments DEXA AXIAL SKELETON BONE DENSITY 1 OR MORE SITES Schedule Routine, Read Routine (OP Routine) 01/08/2021 3:25 PM CDT Post-menopause documented in this encounter Results * Dexa Axial Skeleton Bone Density 1 or 2 Site (01/08/2021 3:25 PM CDT) Anatomical Region Laterality Modality Body N/A Mammography 01/08/2021 3:59 PM CDT Narrative 01/08/2021 4:45 PM CDT EXAM DESCRIPTION: ?? DEXA AXIAL SKELETON BONE DENSITY 1 OR MORE SITES REASON FOR STUDY: ?? Post-menopausal female, screening for osteoporosis. Microstrategy Developer/Model: ?? [employer] A (S/N [id number]) CLINICAL INFORMATION: ??Current height: ??61 inches ? Maximum height: 61 inches ? Weight: 137 pounds Risk factors: None COMPARISON: ??None available. FINDINGS: AP LUMBAR SPINE L1-L4: Total BMD is ??1.267 g/cm2 T-score is 1.1 LEFT HIP: Total BMD is 1.104 g/cm2 T-score is 0.5 Femoral neck BMD is 1.018 g/cm2 T-score is 0.5 IMPRESSION: ?? Normal bone mineral density by WHO criteria. REFERENCE: ??Bone mineral density: ? Normal (T-score above or = -1.0) ? Low bone mass ??(T-score between -1.0 and -2.5) replaces the previously used term osteopenia ? Osteoporosis (T-score = or below -2.5) Medical evaluation for secondary causes of low [...] greater than 3% should be considered for treatment. For further information, including treatment recommendations, please refer to the 2013 ISCD Official Positions (http://www.iscd.org) and the NOF's Clinician's Guide to Prevention and Treatment of Osteoporosis (http://www.nof.org/professionals/clinical-guidelines) THIS IS AN ELECTRONICALLY VERIFIED FINAL REPORT 01/08/2021 4:45 PM - Electronically signed by Navneet Coy M.D. AB: AB D: ??01/08/2021 4:45 PM T: ??01/08/2021 4:45 PM Report ID: [id number] Reading Location: ??[id number] Procedure Note Navneet Coy MD - 01/08/2021 EXAM DESCRIPTION: DEXA AXIAL SKELETON BONE DENSITY 1 OR MORE SITES REASON FOR STUDY: Post-menopausal female, screening for osteoporosis. Microstrategy Developer/Model: [employer] A (S/N [id number]) CLINICAL INFORMATION: Current height: 61 inches Maximum height: 61 inches Weight: 137 pounds Risk factors: None COMPARISON: None available. FINDINGS: AP LUMBAR SPINE L1-L4: Total BMD is 1.267 g/cm2 T-score is 1.1 LEFT HIP: Total BMD is 1.104 g/cm2 T-score is 0.5 Femoral neck BMD is 1.018 g/cm2 T-score is 0.5 IMPRESSION: Normal bone mineral density by WHO criteria. REFERENCE: Bone mineral density: Normal (T-score above or = -1.0) Low bone mass (T-score between -1.0 and -2.5) replaces thepreviously used term osteopenia Osteoporosis (T-score = or below -2.5) Medical evaluation for secondary causes of low [...] or greaterthan 3% should be considered for treatment. For further information, including treatment recommendations, please referto the 2013 ISCD Official Positions (http://www.iscd.org) and the NOF's Clinician's Guide to Prevention and Treatment of Osteoporosis (http://www.nof.org/professionals/clinical-guidelines) THIS IS AN ELECTRONICALLY VERIFIED FINAL REPORT 01/08/2021 4:45 PM - Electronically signed by Navneet Coy M.D. AB: Report ID: [id number] Reading Location: [place] [address] Cherelle Corcoran MD [facility] DXA PROCEDURE S Final Result documented in this encounter Visit Diagnoses Diagnosis Post-menopause Asymptomatic postmenopausal status (age-related) (natural) Anemia, unspecified type Gastritis without bleeding, unspecified chronicity, unspecified gastritis type documented in this encounter Additional Health Concerns Infection Onset Date Last Indicated Resolved Time MRSA 01/06/2020 01/06/2020 02/06/2021 5:00 AM CDT documented as of this encounter Care Teams Telephone Quotation Clerk Relationship Specialty Start Date End Date Cherelle Corcoran MD PCP - General Family Medicine 08/30/19 Mark Queen MD Consulting Physician Infectious Diseases 01/10/20 documented as of this encounter
--- OUTSIDE RECORDS SUMMARY | 2024-07-04 04:18 | XMS_ITS | Encounter Summary ---
Author Organization [facility] Address [address] [facility] [address] [place] [address] Care Team Providers Care Title Checker Name Role Phone Cherelle Corcoran MD Primary Care Pro vider Mark Queen MD Unavailable [phone] Reason for Visit * Reason Comments Follow-up 1 month check Encounter Details Date Type Department Care Team (Latest Contact Info) Description 04/05/2021 4:15 PM CDT Office Visit [facility] Primary Care [address] [place] [phone] Cherelle Corcoran MD [address] [place] [phone] Uncontrolled type 2 diabetes mellitus with hyperglycemia (CMS/HCC) (HCC) (Primary Dx); Other diabetic neurological complication associated with type 2 diabetes mellitus (HCC); Chronic back pain, unspecified back location, unspecified back pain laterality Social History Tobacco Use Types Packs/Day [...] on file 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 Gender Identity Female 02/08/2020 6:39 PM CDT Sexual Orientation Not on file documented as of this encounter Last Filed Vital Signs Vital Sign Reading Time Taken Comments Blood Pressure 112/72 04/05/2021 4:23 PM CDT Pulse 88 04/05/2021 4:23 PM CDT Temperature 36.2 ??C (97.2 ??F) 04/05/2021 4:23 PM CD T Respiratory Rate 16 04/05/2021 4:23 PM CDT Oxygen Saturation 96% 04/05/2021 4:23 PM CDT Inhaled Oxygen Concentration - - Weight 66.2 kg (146 lb) 04/05/2021 4:23 PM CDT Height 157 cm (5' 1.81 ) 04/05/2021 4:23 PM CDT Body Mass Index 26.87 04/05/2021 4:23 PM CDT documented in this encounter Patient Instructions * Patient Instructions* Cherelle Corcoran MD - 04/05/2021 4:15 PM CDT If fasting blood sugar above 140 after 1 week of making sure she is taking jardiance daily increaselantus to 52 units. documented in this encounter Ordered Prescriptions Prescription Sig Dispense Quantity Refills Last Filled Start Date End Date pregabalin (LYRICA) 150 mg capsuleIndications :Other diabetic neurological complication associated with type 2 diabetes mellitus (HCC) Take 1 capsule (150 mg total) by mouth nightly 30 capsule 1 04/05/2021 lidocaine (LIDODERM) 5 %Indications:Chron ic back pain, unspecified back location, unspecified back pain laterality Place 1 patch on the skin daily Apply to painful area 12 hours per day, remove for 12 hours. 90 patch 1 04/05/2021 2 documented in this encounter Progress Notes * Cherelle Corcoran MD - 04/05/2021 4:15 PM CDT Images from the original note were not included. Assessment/Plan: Assessment/Plan Diagnoses and all orders for this visit: Uncontrolled type 2 diabetes mellitus with hyperglycemia (CMS/HCC) (HCC) (Primary) Assessment & Plan: Continue jardiance 25mg, daughter will help monitor to ensure taking daily, if fasting blood sugar not at goal increase lantus to 52 units Continue trulicity 4.5mg weekly Other diabetic neurological complication associated with type 2 diabetes mellitus (HCC) Assessment & Plan: Uncontrolled Increase lyrica to 150mg nightly (AM dose d/c 2/ fatigue) Orders: - pregabalin (LYRICA) 150 mg capsule; Take 1 capsule (150 mg total) by mouth nightly Chronic back pain, unspecified back location, unspecified back pain laterality - lidocaine (LIDODERM) 5 %; Place 1 patch on the skin daily Apply to painful area 12 hours per day,remove for 12 hours. F/u 1 month or sooner as needed if symptoms not improving or worsen. Strict return/ED precautions discussed. Subjective: Barbara Chakraborty is a 70 y.o. female here for follow up diabetes mellitus HPI Chief Complaint Patient presents with ??? Follow-up 1 month check Diabetes mellitus: 4.5mg trulicity, 50 units lantus, & 25mg jardiance. No hypoglycemia. States blood sugar in 160-170's in AM, down from 180's! Neuropathy improved on lyrica, but still having persistent symptoms. nephrology moved to just nightly to help with fatigue, daughter does note improvement Hypertension: on 20mg lisinopril & 25mg hydrochlorothiazide (for peripheral edema) Review of Systems Constitutional: Positive for fatigue (improved). Negative for fever. HENT: Negative for sore throat. Respiratory: Negative for cough and shortness of breath. Gastrointestinal: Negative for diarrhea and vomiting. Musculoskeletal: Positive for back pain. Neurological: Positive for numbness. Objective: Vital signs were reviewed. Vitals: 04/05/21 1623 BP: 112/72 BP Location: Left arm Patient Position: Sitting Pulse: 88 Resp: 16 Temp: 36.2 ??C (97.2 ??F) TempSrc: Temporal SpO2: 96% Weight: 66.2 kg (146 lb) Height: 157 cm (5' 1.81 ) Physical [...] Plan Note - Cherelle Corcoran MD - 04/05/2021 4:45 PM CDTAssociated Problem(s): Diabetic neuropathy (HCC) (Resolved 05/16/2024) Uncontrolled Increase lyrica to 150mg nightly (AM dose d/c 2/2 fatigue) * Assessment & Plan Note - Cherelle Corcoran MD - 04/05/2021 4:45 PM CDTAssociated Problem(s): Type 2 diabetes mellitus with diabetic neuropathy, with long-term current use of insulin (HCC) Continue jardiance 25mg, daughter will help monitor to ensure taking daily, if fasting blood sugar not at goal increase lantus to 52 units Continue trulicity 4.5mg weekly documented in this encounter Plan of Treatment Upcoming Encounters Date Type Department Care Team (Latest Contact Info) Description 07/13/2024 9:00 AM WOODWORK TEACHER Hospital Encounter [facility] GI Lab [address] [place] [address] Jaya Grier MD [address] [facility] [address] [address] 07/13/2024 9:00 AM WOODWORK TEACHER - 07/13/2024 9:30 AM WOODWORK TEACHER Surgery [facility] GI Lab [address] [place] [address] Jaya Grier MD [address] [facility] [address] [place] [address] ESOPHAGOGASTRODUODENOSCOPY Scheduled Procedures Name Priority Associated Diagnoses Date/Ti me ESOPHAGOGASTRODUODENOSCOPY Anemia, unspecified type Gastritis without bleeding, unspecified chronicity, unspecified gastritis type 07/13/2024 9:00 AM WOODWORK TEACHER COLONOSCOPY Iron deficiency anemia due to chronic blood loss documented as of this encounter Visit Diagnoses Diagnosis Uncontrolled type 2 diabetes mellitus with hyperglycemia (HCC)- Primary Other diabetic neurological complication associated with type 2 diabetes mellitus (HCC) Chronic back pain, unspecified back location, unspecified back pain laterality Anemia, unspecified type Gastritis without bleeding, unspecified chronicity, unspecified gastritis type documented in this encounter Discontinued Medications Medication Sig Discontinue Reason Start Date End Da te lidocaine (LIDODERM) 5 %Indications:Acute upper back pain Place 1 patch on the skin daily Apply to painful area 12 hours per day, remove for 12 hours. Reorder 07/24/2020 04/05/2021 pregabalin (LYRICA) 75 mg capsuleIndications:Other diabetic neurological complication associated with type 2 diabetes mellitus (HCC) Take 1 capsule (75 mg total) by mouth nightly Reorder 03/20/2021 04/05/2021 documented as of this encounter Care Teams Title Checker Relationship Specialty Start Date End Date Cherelle Corcoran MD PCP - General Family Medicine 08/30/19 Mark Queen MD Consulting Physician Infectious Diseases 01/10/20 documented as of this encounter
--- OUTSIDE RECORDS SUMMARY | 2024-07-04 04:18 | XMS_ITS | Encounter Summary ---
Author Organization [facility] Healthcare Address [address] [place] [address] Care Team Providers Care Equine Dentist Name Role Phone Cherelle Corcoran MD Primary Care Pro vider Mark Queen MD Unavailable [phone] Reason for Visit * Reason Onset Date Comments No Show 02/01/2021 Encounter Details Date Type Department Care Team (Late st Contact Info) Description 02/01/[address] 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 Gender Identity Female 02/08/2020 6:39 PM CDT Sexual Orientation Not on file documented as of this encounter Progress Notes * Rina Boothe ROLL UP OPERATOR - 02/01/2021 4:06 PM CDT No show documented in this encounter Plan of Treatment Upcoming Encounters Date Type Department Care Team (Latest Contact Info) Description 07/13/2024 9:00 AM STATION CLEANING PORTER Hospital Encounter [facility] GI Lab [address] [place] [address] [place] [address] [place] [address] [address] [place] [phone] 07/13/2024 9:00 AM STATION CLEANING PORTER - 07/13/2024 9:30 AM STATION CLEANING PORTER Surgery [facility] GI Lab [address] [place] [id number] Jaya Grier MD [facility] [facility] [address] [place] [address] ESOPHAGOGASTRODUODENOSCOPY Scheduled Procedures Name Priority Associated Diagnoses Date/Ti me ESOPHAGOGASTRODUODENOSCOPY Anemia, unspecified type Gastritis without bleeding, unspecified chronicity, unspecified gastritis type 07/13/2024 9:00 AM STATION CLEANING PORTER COLONOSCOPY Iron deficiency anemia due to chronic blood loss documented as of this encounter Visit Diagnoses Not on filedocumented in this encounter Additional Health Concerns Infection Onset Date Last Indicated Resolved Time MRSA 01/06/2020 01/06/2020 02/06/2021 5:00 AM CDT documented as of this encounter Care Teams Equine Dentist Relationship Specialty Start Date End Date Cherelle Corcoran MD PCP - General Family Medicine 08/30/19 Mark Queen MD Consulting Physician Infectious Diseases 01/10/20 documented as of this encounter
--- OUTSIDE RECORDS SUMMARY | 2024-07-04 04:18 | XMS_ITS | Encounter Summary ---
Author Organization [facility] Address [address] [facility] [address] [place] [address] Care Team Providers Care Sintering Plant Supervisor Name Role Phone Cherelle Corcoran MD Primary Care Pro vider Mark Queen MD Unavailable [phone] Reason for Visit * Reason Onset Date Comments med refill - Risperdal 05/21/2021 Encounter Details Date Type Department Care Team (Late st Contact Info) Description 05/21/2021 Telephone [facility] Behavioral Health [address] [phone] [place] [address] [address] med refill - Risperdal Social History Tobacco Use Types Packs/Day Years [...] file Legal Sex Female 9:03 AM 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 LMOR OK'd per Dr. Swenson Risperdal 2mg tablet #30 one tablet by mouth nightly x1 Called Daughter Honey LMOR S OPERATIONS MANAGER S OPERATIONS MANAGER documented in this encounter Plan of Treatment Upcoming Encounters Date Type Department Care Team (Latest Contact Info) Description 07/13/2024 9:00 AM SALES OPERATIONS MANAGER Hospital Encounter [facility] GI Lab [address] [place] [address] Jaya Grier MD [address] [place] [address] [address] [place] [address] 07/13/2024 9:00 AM SALES OPERATIONS MANAGER - 07/13/2024 9:30 AM SALES OPERATIONS MANAGER Surgery [facility] GI Lab [address] [place] [address] Jaya Grier MD [facility] [facility] [address] [place] [address] ESOPHAGOGASTRODUODENOSCOPY Scheduled Procedures Name Priority Associated Diagnoses Date/Ti hi ESOPHAGOGASTRODUODENOSCOPY Anemia, unspecified type Gastritis without bleeding, unspecified chronicity, unspecified gastritis type 07/13/2024 9:00 AM SALES OPERATIONS MANAGER COLONOSCOPY Iron deficiency anemia due to chronic blood loss documented as of this encounter Visit Diagnoses Not on filedocumented in this encounter Care Teams Sintering Plant Supervisor Relationship Specialty Start Date End Date Cherelle Corcoran MD PCP - General Family Medicine 08/30/19 Mark Queen MD Consulting Physician Infectious Diseases 01/10/20 documented as of this encounter
--- OUTSIDE RECORDS SUMMARY | 2024-07-04 04:18 | XMS_ITS | Encounter Summary ---
Author Organization [facility] Address [address] [place] [address] Care Team Providers Care Welder Tack Name Role Phone Cherelle Corcoran MD Primary Care Pro vider Mark Queen MD Unavailable [phone] Reason for Visit * Reason Comments Hypertension 6 mo fu Hyperlipidemia Diabetes Type 2 Encounter Details Date Type Department Care Team (Late st Contact Info) Description 08/05/2021 8:45 AM WINE STEWARD Office Visit [facility] Cardiology [address] [place] [address] Santo Vail MD [address] [facility] [address] [place] [address] Follow-up examination after heart transplant (CMS/HCC) (HCC) (Primary Dx) Social History Tobacco [...] Frequency of Binge Drinking Not on file 02/1 09/2021 PHQ-2 Answer Date Recorded PHQ-2 Total Score (If total score is 3 or more points, staff should administer the PHQ-9) 0 01/08/2021 Comments No Sex and Gender Information Value Date Recorded Sex Assigned at Not on file Legal Sex Female 9:03 AM WINE STEWARD Gender Identity Female 02/08/2020 6:39 PM CDT Sexual Orientation Not on file documented as of this encounter Last Filed Vital Signs Vital Sign Reading Time Taken Comments Blood Pressure 138/68 08/05/2021 9:03 AM WINE STEWARD Pulse 84 08/05/2021 9:03 AM WINE STEWARD Temperature - - Respiratory Rate - - Oxygen Saturation 98% 08/05/2021 9:03 AM WINE STEWARD Inhaled Oxygen Concentration - - Weight 63 kg (139 lb) 08/05/2021 9:03 AM WINE STEWARD Height 157.5 cm (5' 2 ) 08/05/2021 9:03 AM WINE STEWARD Body Mass Index 25.42 08/05/2021 9:03 AM WINE STEWARD documented in this encounter Ordered Prescriptions Prescription Sig Dispense Quantity Refills Last Filled Start Date End Date amLODIPine (NORVASC) 10 mg tablet Take 1 tablet (10 mg total) by mouth daily 30 tablet 6 08/05/2021 08/14/2021 documented in this encounter Progress Notes * Santo Vail MD - 08/05/2021 8:45 AM CST Images from the original note were not included. Cardiology Initial Clinic Visit HPI: We are seeing Barbara Chakraborty in clinic today for initial office visit. Patient is a 70 y.o. female with past medical history notable [...] STEFANO. Still having some mental status changes. Review of Systems: 14 point ROS was [...] Dr. Anat Pelayo Current Outpatient Medications: ??? amLODIPine, ??? amoxicillin-clavulanate, Take 1 tablet by mouth Take 1 tablet q 12 hours ??? atorvastatin, 40 mg, oral, Daily ??? BD Arlyn 2nd Gen Pen Needle, USE TO INJECT BASAGLAR EVERY NIGHT AT BEDTIME ??? blood pressure monitor, Check BP as instructed ??? conner.stocking,thigh,reg,med, Wear as much as possible ??? famotidine, 40 mg, oral, Daily ??? glucose, 16 g, oral, PRN ??? haloperidoL, 5 mg, oral, Nightly ??? hydrALAZINE, Take 1 by mouth every 3 dys ??? hydroCHLOROthiazide, 25 mg, oral, Daily ??? LANTUS, 55 Units, subcutaneous, Nightly (Patient taking differently: 55 Units, subcutaneous, Nightly, 15 units a.m 15 p.m.) ??? lancets, Check blood sugar up to 3 times a day ??? lidocaine, 1 patch, transdermal, Daily ??? lisinopriL, 20 mg, oral, Daily ??? Blood Pressure Cuff, Use to check blood pressure daily ??? multivitamin with minerals, 1 tablet, oral, Daily ??? ynpzffqr-uwshttoya-ksnXKKPDzlepz, ??? omeprazole, 20 mg, oral, Daily ??? OneTouch Verio test strips, TEST 3 TO 4 TIMES DAILY ??? pregabalin, TAKE 1 CAPSULE(150 MG) BY MOUTH EVERY NIGHT ??? syringe with needle, insulin (INSULIN SYRINGE-NEEDLE U-100 [facility]), 3 times a day No Known Allergies Social History Tobacco Use ??? Smoking status: Never Smoker ??? Smokeless tobacco: Never Used Substance Use Topics ??? Alcohol use: Not Currently Family History Problem Relation Age of Onset ??? Stomach cancer Father Physical Exam: Vitals BP 138/68 (BP Location: Left arm, Patient Position: Sitting) Pulse 84 Ht 157.5 cm (5' 2 ) Wt 63 kg (139 lb) SpO2 98% BMI 25.42 kg/m?? General: Pleasant female in no acute [...] Review: Sodium Date Value Ref Range Status 02/07/2021 143 135 - 145 mmol/L Final Comment: Testing performed by: [address] [address] 07/24/2020 140 135 - 145 mmol/L Final 05/28/2020 142 135 - 145 mmol/L Final Potassium, pl Date Value Ref Range Status 02/07/2021 3.8 3.3 - 4.9 mmol/L Final Comment: Testing performed by: [address] [address] Potassium Date Value Ref Range Status 07/24/2020 4.5 3.3 - 5.1 mmol/L Final 05/28/2020 4.9 3.3 - 5.1 mmol/L Final Chloride Date Value Ref Range Status 02/07/2021 104 97 - 110 mmol/L Final Comment: Testing performed by: [address] [id number] 07/24/2020 100 96 - 108 mmol/L Final 05/28/2020 104 96 - 108 mmol/L Final CO2 Date Value Ref Range Status 02/07/2021 30 22 - 32 mmol/L Final Comment: Testing performed by: [address] [address] Carbon Dioxide Date Value Ref Range Status 07/24/2020 31 22 - 32 mmol/L Final 05/28/2020 29 22 - 32 mmol/L Final BUN Date Value Ref Range Status 02/07/2021 25 8 - 25 mg/dL Final Comment: Testing performed by: [address] [address] 02/13/2020 24 8 - 25 mg/dL Final 02/09/2020 25 8 - 25 mg/dL Final Creatinine Date Value Ref Range Status 02/07/2021 1.40 (H) 0.60 - 1.10 mg/dL Final Comment: Testing performed by: [address] [address] 07/24/2020 1.5 (H) 0.5 - 1.1 mg/dL Final Comment: NOTE: Estimated GFR (Cockroft-Gault) will NOT be calculated unless patient Height and Weight were entered. Also, Kidney Disease Stage (GFR) and Estimated GFR (Cockroft-Gault) will NOT be calculated if Creatinine result is <0.2. 05/28/2020 1.0 0.5 - 1.1 mg/dL Final Comment: NOTE: Estimated GFR (Cockroft-Gault) will NOT be calculated unless patient Height and Weight were entered. Also, Kidney Disease Stage (GFR) and Estimated GFR (Cockroft-Gault) will NOT be calculated if Creatinine result is <0.2. eGFR Date Value Ref Range Status 02/07/2021 38 mL/min/1.73 m2 Final Comment: Interpretive Data Reference [...] was last reviewed 2020 Testing performed by: [address] [address] 02/13/2020 45 mL/min/1.73 m2 Final Comment: Interpretive Data Reference Interval Normal >/= 90 mL/min/1.73m2 Mildly decreased* 60 - 89 mL/min/1.73m2 Mildly to moderately decreased 45 - 59 mL/min/1.73m2 Moderately to severely decreased 30 - 44 mL/min/1.73m2 Severely decreased 15 - 29 mL/min/1.73m2 Kidney Failure < 15 mL/min/1.73m2 *Relative to young adult level If -Citizen Of [place] multiply value by 1.16. Estimated glomerular filtration rate is determined by [...] 70. Current interpretive data was last reviewed 2016. 02/09/2020 50 mL/min/1.73 m2 Final Comment: Interpretive Data Reference Interval Normal >/= 90 mL/min/1.73m2 Mildly decreased* 60 - 89 mL/min/1.73m2 Mildly to moderately decreased 45 - 59 mL/min/1.73m2 Moderately to severely decreased 30 - 44 mL/min/1.73m2 Severely decreased 15 - 29 mL/min/1.73m2 Kidney Failure < 15 mL/min/1.73m2 *Relative to young adult level If -Citizen Of [place] multiply value by 1.16. Estimated glomerular filtration rate is determined by [...] 70. Current interpretive data was last reviewed 2016. Glucose Date Value Ref Range Status 02/07/2021 183 70 - 199 mg/dL Final Comment: Interpretive [...] was last revised 2017. Testing performed by: [address] [address] Alk phos Date Value Ref Range Status 02/07/2021 123 40 - 130 Units/L Final Comment: Testing performed by: [address] [address] Alkaline Phosphatase Date Value Ref Range Status 07/24/2020 118 (H) 35 - 104 U/L Final 05/28/2020 129 (H) 35 - 104 U/L Final Bilirubin, total Date Value Ref Range Status 02/07/2021 <0.2 0.1 - 1.2 mg/dL Final Comment: Testing performed by: [address] [address] Total Bilirubin Date Value Ref Range Status 07/24/2020 <0.2 0.0 - 1.2 mg/dL Final 05/28/2020 0.2 0.0 - 1.2 mg/dL Final Albumin Date Value Ref Range Status 02/07/2021 3.6 3.5 - 5.0 g/dL Final Comment: Testing performed by: [address] [address] 07/24/2020 3.6 3.5 - 5.0 g/dL Final 05/28/2020 4.2 3.5 - 5.0 g/dL Final ALT Date Value Ref Range Status 02/07/2021 14 7 - 45 Units/L Final Comment: Testing performed by: [address] [address] 07/24/2020 7 0 - 33 U/L Final 05/28/2020 12 0 - 33 U/L Final AST Date Value Ref Range Status 02/07/2021 16 10 - 45 Units/L Final Comment: Testing performed by: [address] [address] 07/24/2020 17 0 - 32 U/L Final 05/28/2020 20 0 - 32 U/L Final TSH Date Value Ref Range Status 02/07/2021 1.54 0.30 - 4.20 mcIUnit/mL Final Comment: Testing performed by: [address] [address] TSH W REFLEX TO FT4 Date Value Ref Range Status 10/16/2020 0.990 0.27 - 4.20 uIU/mL Final Cholesterol Date Value Ref Range Status 02/07/2021 133 30 - 199 mg/dL Final [...] last revised on 2018. Testing performed by: [address] [address] 04/02/2020 211 (H) 0 - 199 mg/dL Final Comment: National Lipid Association/NCEP Guidelines: Desirable < 200 mg/dL Borderline high: 200-239 mg/dL High Risk: >=240 mg/dL Triglycerides Date Value Ref Range Status 02/07/2021 147 <=149 mg/dL Final Comment: Interpretive [...] last revised on 2018. Testing performed by: [address] [address] 04/02/2020 123 0 - 149 mg/dL Final Comment: National Lipid Association/NCEP Guidelines: Normal < 150 mg/dL Borderline high 150-199 mg/dL High 200-499 mg/dL Very High >=500 mg/dL HDL Cholesterol Date Value Ref Range Status 04/02/2020 51 mg/dL Final Comment: Reference Ranges: Males: >=40 mg/dL Females: >=50 mg/dL HDL Date Value Ref Range Status 02/07/2021 51 >=40 mg/dL Final Comment: Interpretive [...] last revised on 2018. Testing performed by: [address] [address] LDL, calculated Date Value Ref Range Status 02/07/2021 53 <=129 mg/dL Final Comment: Interpretive [...] last revised on 2018. Testing performed by: [address] [address] LDL Cholesterol, Calc Date Value Ref Range [...] 0-125 pg/mL >74 years: 0-450 pg/mL Method: Clear[employer] technology Assessement and Plan -hypertension. She was discharged from the hospital on amlodipine 5 mg and hydralazine 25 tid. Stophydralazine. Increase amlodipine to 10 mg daily. She is off lisinopril and hctz now, was stopped for STEFANO. Encourage to get a BP cuff at home. -hyperlipidemia. Tc 211, ldl 135, hdl 51, trig 123 In 03/2020. Increased atorvastatin 20 to 40 lastvisit, now LDL 53, Trig 147 (02/07/2021). Continue on atorvastatin 40, much better today. -lower extremity swelling. Normal LV function on TTE 12/2019. -DM2. She is managed by primary care physician. On Jardiance in addition to her other medications, which is a good choice for cardiac risk modification. -CKD 3. Sees Dr Ryan. -Cardiac Risk Reduction: I have discussed with the patient the importance of healthy diet and regular exercise. Continue ASA. -schizophrenia Cardiac Testing: TTE 12/2019 normal EF, normal diastolic function, no valvular disease We appreciate the opportunity to take care of Barbara Chakraborty. Please do not hesitate to call us if you have any questions or concerns. Sincerely yours, Santo Vail MD STEWARD documented in this encounter Plan of Treatment Upcoming Encounters Date Type Department Care Team (Latest Contact Info) Description 07/13/2024 9:00 AM WINE STEWARD Hospital Encounter [facility] [address] [place] [address] Jaya Grier MD [address] [place] [address] 07/13/2024 9:00 AM WINE STEWARD - 07/13/2024 9:30 AM WINE STEWARD Surgery [facility] [address] [place] [address] Jaya Grier MD [address] [place] [address] ESOPHAGOGASTRODUODENOSCOPY Scheduled Procedures Name Priority Associated Diagnoses Date/Ti me ESOPHAGOGASTRODUODENOSCOPY Anemia, unspecified type Gastritis without bleeding, unspecified chronicity, unspecified gastritis type 07/13/2024 9:00 AM WINE STEWARD COLONOSCOPY Iron deficiency anemia due to chronic blood loss documented as of this encounter Visit Diagnoses Diagnosis Follow-up examination after heart transplant (HCC)- Primary Anemia, unspecified type Gastritis without bleeding, unspecified chronicity, unspecified gastritis type documented in this encounter Discontinued Medications Medication Sig Discontinue Reason Start Date End Da te empagliflozin (JARDIANCE) 25 mg tabletIndications:type 2 diabetes mellitus Take 1 tablet (25 mg total) by mouth daily before breakfast Therapy completed 02/08/2021 08/05/2021 dulaglutide (TRULICITY) 4.5 mg/0.5 mL pen injectorIndications:Typ e 2 diabetes mellitus with diabetic neuropathy, with long-term current use of insulin ([facility]) Inject 0.5 mL (4.5 mg total) under the skin once a week Therapy completed 07/19/2021 08/05/2021 lisinopriL (PRINIVIL,ZESTRIL) 20 mg tablet Take 1 tablet (20 mg total) by mouth daily Therapy completed 03/20/2021 08/05/2021 hydrALAZINE (APRESOLINE) 25 mg tablet Take 1 by mouth every 3 dys Therapy completed 08/04/2021 08/05/2021 amLODIPine (NORVASC) 5 mg tablet Dose adjustment 08/04/2021 08/05/2021 documented as of this encounter Historical Medications * This list may reflect changes made after this encounter. hydrALAZINE (APRESOLINE) 25 mg tablet Take 1 by mouth every 3 dys 08/04/2021 08/05/2021 amLODIPine (NORVASC) 5 mg tablet 08/04/2021 08/05/2021 amoxicillin-clavu lanate (AUGMENTIN) 875-125 mg per tablet Take 1 tablet by mouth Take 1 tablet q 12 hours 08/04/2021 08/14/2021 added in this encounter Care Teams Welder Tack Relationship Specialty Start Date End Date Cherelle Corcoran MD PCP - General Family Medicine 08/30/19 Mark Queen MD Consulting Physician Infectious Diseases 01/10/20 documented as of this encounter
--- OUTSIDE RECORDS SUMMARY | 2024-07-04 04:18 | XMS_ITS | Encounter Summary ---
Author Organization [facility] Address [address] [place] [address] Care Team Providers Care Shirt Folder Name Role Phone Cherelle Corcoran MD Primary Care Pro vider Mark Queen MD Unavailable [phone] Encounter Details Date Type Department Care Team (Late st Contact Info) Description 08/01/2021 Orders Only [facility] Health Information Management [address] [place] [address] Scanning, Provider Social History Tobacco Use Types [...] on file Legal Sex Female 9:03 AM OFFICE MACHINE MECHANIC Gender Identity Female 02/08/2020 6:39 PM CDT Sexual Orientation Not on file documented as of this encounter Plan of Treatment Upcoming Encounters Date Type Department Care Team (Latest Contact Info) Description 07/13/2024 9:00 AM OFFICE MACHINE MECHANIC Hospital Encounter [facility] [address] [place] [address] Jaya Grier MD [address] [place] [address] 07/13/2024 9:00 AM OFFICE MACHINE MECHANIC - 07/13/2024 9:30 AM OFFICE MACHINE MECHANIC Surgery [facility] [address] [place] [address] [place] [address] [place] [address] [address] [place] [address] ESOPHAGOGASTRODUODENOSCOPY Scheduled Procedures Name Priority Associated Diagnoses Date/Ti me ESOPHAGOGASTRODUODENOSCOPY Anemia, unspecified type Gastritis without bleeding, unspecified chronicity, unspecified gastritis type 07/13/2024 9:00 AM OFFICE MACHINE MECHANIC COLONOSCOPY Iron deficiency anemia due to chronic blood loss documented as of this encounter Procedures Procedure Name Priority Date/Time Associated Diagnosis Comments SCAN - RADIOLOGY/IMAGING 08/01/2021 CARDIOLOGY DOCUMENT SCAN 08/01/2021 documented in this encounter Results * SCAN - RADIOLOGY/IMAGING (08/01/2021) Anatomical Region Laterality Modality Other us Provider Scanning Final Result * SCAN - CARDIOLOGY (08/01/2021) Anatomical Region Laterality Modality Other us Provider Scanning CV CARDIAC SERVICES PROCEDURES Edited Result - Final documented in this encounter Visit Diagnoses Not on filedocumented in this encounter Care Teams Shirt Folder Relationship Specialty Start Date End Date Cherelle Corcoran MD PCP - General Family Medicine 08/30/19 Mark Queen MD Consulting Physician Infectious Diseases 01/10/20 documented as of this encounter
--- OUTSIDE RECORDS SUMMARY | 2024-07-04 04:18 | XMS_ITS | Encounter Summary ---
Author Organization [facility] Address [address] [place] [address] Care Team Providers Care Contracting Engineer Name Role Phone Cherelle Corcoran MD Primary Care Pro vider Mark Queen MD Unavailable [phone] Encounter Details Date Type Department Care Team (Late st Contact Info) Description 06/13/2021 Telephone [facility] Primary Care [address] [facility] [address] [place] [address] Cherelle Corcoran MD [facility] [facility] [address] [place] [address] Social History Tobacco Use Types [...] on file Legal Sex Female 9:03 AM ASSOCIATE ART DIRECTOR Gender Identity Female 02/08/2020 6:39 PM CDT Sexual Orientation Not on file documented as of this encounter Ordered Prescriptions Prescription Sig Dispense Quantity Refills Last Filled Start Date End Date omeprazole (PriLOSEC) 20 mg capsuleIndications :Gastroesophageal reflux disease, unspecified whether esophagitis present Take 1 capsule (20 mg total) by mouth daily 90 capsule 06/13/2021 2 documented in this encounter Miscellaneous Notes * Telephone Encounter - Tena Roman - 06/13/2021 10:00 AM CST Patient daughter/ Areli called requesting a refill on: Omeprazole 20 mg tablet-Take 1 capsule (20 mg total ) by mouth daily. Pharmacy: [facility] [phone] Pt CB# [phone] CIATE ART DIRECTOR documented in this encounter Plan of Treatment Upcoming Encounters Date Type Department Care Team (Latest Contact Info) Description 07/13/2024 9:00 AM ASSOCIATE ART DIRECTOR Hospital Encounter [facility] [address] [place] [address] Jaya Grier MD [address] [place] [address] [address] [place] [address] 07/13/2024 9:00 AM ASSOCIATE ART DIRECTOR - 07/13/2024 9:30 AM ASSOCIATE ART DIRECTOR Surgery [facility] [address] [place] [address] Jaya Grier MD [facility] [facility] [address] [place] [address] ESOPHAGOGASTRODUODENOSCOPY Scheduled Procedures Name Priority Associated Diagnoses Date/Ti tx ESOPHAGOGASTRODUODENOSCOPY Anemia, unspecified type Gastritis without bleeding, unspecified chronicity, unspecified gastritis type 07/13/2024 9:00 AM ASSOCIATE ART DIRECTOR COLONOSCOPY Iron deficiency anemia due to chronic blood loss documented as of this encounter Visit Diagnoses Diagnosis Gastroesophageal reflux disease, unspecified whether esophagitis present- Primary Anemia, unspecified type Gastritis without bleeding, unspecified chronicity, unspecified gastritis type documented in this encounter Discontinued Medications Medication Sig Discontinue Reason Start Date End Da te omeprazole (PriLOSEC) 20 mg capsule Take 1 capsule (20 mg total) by mouth daily Reorder 01/16/2021 06/13/2021 documented as of this encounter Care Teams Contracting Engineer Relationship Specialty Start Date End Date Cherelle Corcoran MD PCP - General Family Medicine 08/30/19 Mark Queen MD Consulting Physician Infectious Diseases 01/10/20 documented as of this encounter
--- OUTSIDE RECORDS SUMMARY | 2024-07-04 04:18 | XMS_ITS | Encounter Summary ---
Author Organization [facility] Healthcare Address [address] [place] [address] Care Team Providers Care Supervisor Looping Name Role Phone Cherelle Corcoran MD Primary Care Pro vider Mark Queen MD Unavailable [phone] Reason for Visit * Reason Onset Date Comments No Show 01/31/2021 Encounter Details Date Type Department Care Team (Late st Contact Info) Description 01/31/2021 Documentation [facility] Medical Office Bldg [address] OP Physical Therapy [address] [place] [id number] Rina Boothe, ALUMINUM SHEET CUTTER No Show Social History Tobacco Use Types [...] on file Legal Sex Female 9:03 AM MIRROR FINISHING MACHINE OPERATOR Gender Identity Female 02/08/2020 6:39 PM CDT Sexual Orientation Not on file documented as of this encounter Progress Notes * Rina Boothe ALUMINUM SHEET CUTTER - 01/31/2021 2:37 PM CDT No show documented in this encounter Plan of Treatment Upcoming Encounters Date Type Department Care Team (Latest Contact Info) Description 07/13/2024 9:00 AM MIRROR FINISHING MACHINE OPERATOR Hospital Encounter [facility] [address] [place] [address] [place] [address] [place] [address] [address] [place] [address] 07/13/2024 9:00 AM MIRROR FINISHING MACHINE OPERATOR - 07/13/2024 9:30 AM MIRROR FINISHING MACHINE OPERATOR Surgery [facility] [address] [place] [address] Jaya Grier MD [facility] [facility] [address] [place] [address] ESOPHAGOGASTRODUODENOSCOPY Scheduled Procedures Name Priority Associated Diagnoses Date/Ti me ESOPHAGOGASTRODUODENOSCOPY Anemia, unspecified type Gastritis without bleeding, unspecified chronicity, unspecified gastritis type 07/13/2024 9:00 AM MIRROR FINISHING MACHINE OPERATOR COLONOSCOPY Iron deficiency anemia due to chronic blood loss documented as of this encounter Visit Diagnoses Not on filedocumented in this encounter Additional Health Concerns Infection Onset Date Last Indicated Resolved Time MRSA 01/06/2020 01/06/2020 02/06/2021 5:00 AM CDT documented as of this encounter Care Teams Supervisor Looping Relationship Specialty Start Date End Date Cherelle Corcoran MD PCP - General Family Medicine 08/30/19 Mark Queen MD Consulting Physician Infectious Diseases 01/10/20 documented as of this encounter
--- OUTSIDE RECORDS SUMMARY | 2024-07-04 04:18 | XMS_ITS | Encounter Summary ---
Author Organization [facility] Healthcare Address [address] [place] [address] Care Team Providers Care Poultry Buyer Name Role Phone Cherelle Corcoran MD Primary Care Pro vider Mark Queen MD Unavailable [phone] Reason for Referral * Diagnostic Imaging (Routine) - Closed Specialty Diagnoses / Procedures Referred By Maryse lama Referred To Contact Diagnoses Encounter for screening mammogram for malignant neoplasm of breast Procedures SCREENING MAMMOGRAM BILATERAL W Cherelle Chawla MD Phone: tel: fax: [address] [address] Referral ID Status Reason Start Date Expiration Date Visits Re quested Visits Authorized [id number] Closed 02/14/2020 03/15/2021 1 1 Reason for Visit * Diagnostic Imaging (Routine) - Closed Specialty Diagnoses / Procedures Referred By Maryse lama Referred To Contact Diagnoses Encounter for screening mammogram for malignant neoplasm of breast Procedures SCREENING MAMMOGRAM BILATERAL W Cherelle Chawla MD Phone: tel: fax: [place] [address] [place] [address] Referral ID Status Reason Start Date Expiration Date Visits Re quested Visits Authorized [id number] Closed 02/14/2020 03/15/2021 1 1 Encounter Details Date Type Department Care Team (Latest Contact Info) Description 01/08/2021 2:59 PM CDT Hospital Encounter [facility] [address] [facility] [address] [place] [address] Encounter for screening mammogram for malignant neoplasm [...] on file Legal Sex Female 9:03 AM PRESIDENT [facility]UCATIONAL [facility]UTION Gender Identity Female 02/08/2020 6:39 PM CDT [...] 2 pen needle, diabetic 32 gauge x 09/04 needleIndications:U ncontrolled type 2 diabetes mellitus with [...] (Latest Contact Info) Description 07/13/2024 9:00 AM PRESIDENT [facility]ATIONAL [facility]STITUTION Hospital Encounter [facility] [address] [place] [address] Jaya Grier MD [address] [place] [address] 07/13/2024 9:00 AM [facility] - 07/13/2024 9:30 AM [facility]IDENT [facility]ATIONAL [facility] Surgery [facility] [address] [place] [address] Jaya Grier MD [address] [place] [address] ESOPHAGOGASTRODUODENOSCOPY Scheduled Procedures Name Priority Associated Diagnoses Date/Ti me ESOPHAGOGASTRODUODENOSCOPY Anemia, unspecified type Gastritis without bleeding, unspecified chronicity, unspecified gastritis type 07/13/2024 9:00 AM [facility] COLONOSCOPY Iron deficiency anemia due to chronic blood loss documented as of this encounter Procedures Procedure Name Priority Date/Time Associated Diagnosis Comments SCREENING MAMMOGRAM BILATERAL W STALIN Schedule Routine, Read Routine (OP Routine) 01/08/2021 3:37 PM CDT Encounter for screening mammogram for malignant neoplasm of breast documented in this encounter Results * SCREENING MAMMOGRAM BILATERAL W STALIN (01/08/2021 3:37 PM CDT) Anatomical Region Laterality Modality Breast Bilateral Mammography Impressions 01/10/2021 12:00 PM CDT BI-RADS?? ATLAS category (overall): 1 Negative There is no mammographic evidence of malignancy. A 1 year screening mammogram is recommended. The patient has been or will be contacted. We recommend annual screening mammography for women at average risk of breast cancer beginning at age 40, based on guidelines of the [employer] (ACR Practice Parameter for the Performance of Screening and Diagnostic Mammography) and [employer]. For women with and elevated risk of breast cancer, please refer to the ACR Practice Parameter for specific screening recommendations. The patient will be entered into a reminder system with a target due date of 1 year for her next screening exam. Narrative 01/10/2021 12:00 PM CDT SCREENING MAMMOGRAM BILATERAL W STALIN: 01/08/21 The study was acquired using full field digital technology and interpreted from soft copy. 2D digital mammographic views, as well as 3D digital tomosynthesis were performed in the CC and MLO projections. CLINICAL: ??Encounter for screening mammogram for malignant neoplasm of breast ??Medical history includes arthritis, hypertension, and diabetes mellitus. ??No known family history of breast cancer. COMPARISONS: 11/08/2015 Diagnostic Mammogram Bilateral W Stalin BREAST TISSUE: The breasts have scattered areas of fibroglandular density. FINDINGS: No suspicious masses, suspicious calcifications, or other suspicious findings are seen within either breast. [There has been no suspicious change.] Cherelle Corcoran MD IMG MAMMO PROCEDU RES [...] documented as of this encounter Care Teams Poultry Buyer Relationship Specialty Start Date End Date Cherelle Corcoran MD PCP - General Family Medicine 08/30/19 Mark Queen MD Consulting Physician Infectious Diseases 01/10/20 documented as of this encounter
--- OUTSIDE RECORDS SUMMARY | 2024-07-04 04:18 | XMS_ITS | Encounter Summary ---
Author Organization [facility] Address [address] [place] [address] Care Team Providers Care Nuclear Medical Tech Name Role Phone Duane Callahan MD Primary Care Pro vider Mark Queen MD Unavailable [phone] Reason for Visit * Reason Comments Follow-up Pt in the office for 4 week follow up. Daughter states pt feet are swollen today. Encounter Details Date Type Department Care Team (Latest Contact Info) Description 02/07/2021 3:30 PM CDT Office Visit [facility] Primary Care [address] [place] [phone] Duane Callahan MD [address] [place] [address] Peripheral edema (Primary Dx); Hypertension associated with diabetes (HCC); Uncontrolled type 2 diabetes mellitus with hyperglycemia (CMS/HCC) (HCC); Stage 3b chronic kidney disease (HCC); Iron deficiency anemia, unspecified iron deficiency anemia type; Hyperlipidemia associated with type 2 diabetes [...] on file Legal Sex Female 9:03 AM INSPECTOR AND SORTER Gender Identity Female 02/08/2020 6:39 PM CDT Sexual Orientation Not on file documented as of this encounter Last Filed Vital Signs Vital Sign Reading Time Taken Comments Blood Pressure 162/92 02/07/2021 4:35 PM CDT Pulse 85 02/07/2021 4:12 PM CDT Temperature 36.9 ??C (98.4 ??F) 02/07/2021 4:12 PM CD T Respiratory Rate 16 02/07/2021 4:12 PM CDT Oxygen Saturation 97% 02/07/2021 4:12 PM CDT Inhaled Oxygen Concentration - - Weight 64.9 kg (143 lb) 02/07/2021 4:12 PM CDT Height 157.5 cm (5' 2 ) 02/07/2021 4:12 PM CDT Body Mass Index 26.16 02/07/2021 4:12 PM CDT documented in this encounter Ordered Prescriptions Prescription Sig Dispense Quantity Refills Last Filled Start Date End Date empagliflozin (JARDIANCE) 25 mg tabletIndications: type 2 diabetes mellitus Take 1 tablet (25 mg total) by mouth daily before breakfast 90 tablet 1 02/08/2021 2 hydroCHLOROthiazid e (HYDRODIURIL) 12.5 mg tabletIndications: Hypertension associated with diabetes (HCC) Take 1 tablet (12.5 mg total) by mouth daily 30 tablet 02/07/2021 1 documented in this encounter Progress Notes * Duane Callahan MD - 02/07/2021 3:30 PM CDT Images from the original note were not included. Assessment/Plan: Assessment/Plan Diagnoses and all orders for this visit: Peripheral edema (Primary) Comments: Previous ECHO wnl, does have CKD Check labs Start hctz for uncontrolled BP Hypertension associated with diabetes (HCC) Assessment & Plan: Blood pressure above goal Add hydrochlorothiazide to 10mg lisinopril given peripheral edema Orders: - hydroCHLOROthiazide (HYDRODIURIL) 12.5 mg tablet; Take 1 tablet (12.5 mg total) by mouth daily Uncontrolled type 2 diabetes mellitus with hyperglycemia (CMS/HCC) ([facility]) Assessment & Plan: Lab Results Component Value Date HGBA1C 8.4 (H) 02/07/2021 Increase jardiance to 25mg Continue lantus 47 units Continue trulicity 4.5mg weekly Orders: - Hemoglobin A1c; Future - empagliflozin (JARDIANCE) 25 mg tablet; Take 1 tablet (25 mg total) by mouth daily before breakfast Stage 3b chronic kidney disease (HCC) Assessment & Plan: Following with nephrology, reviewed last note Orders: - Protein / creatinine ratio, urine, random; Future - Comprehensive metabolic panel; Future - PTH; Future Iron deficiency anemia, unspecified iron deficiency anemia type - CBC with auto differential; Future - Iron profile w/ IBC; Future Hyperlipidemia associated with type 2 diabetes mellitus (HCC) - Lipid panel; Future F/u 2 weeks or sooner as needed if symptoms not improving or worsen. Strict return/ED precautions discussed. Subjective: Barbara Chakraborty is a 70 y.o. female here for follow up diabetes mellitus and other chronic conditions HPI Chief Complaint Patient presents with ??? Follow-up Pt in the office for 4 week follow up. Daughter states pt feet are swollen today. Diabetes mellitus Medications:??4.5mg trulicity weekly, 47??units lantus daily, 10mg jardiance Fasting blood sugar: 101 this morning no??hypoglycemia episodes ?? Neuropathy: taking 400mg gabapentin??TID CKD: seeing nephro?? Hypertension: on 10mg lisinopril Hyperlipidemia: on??40mg atorvastatin GERD: stable on prilosec Review of Systems Constitutional: Negative for fever. HENT: Negative for sore throat. Respiratory: Negative for cough and shortness of breath. Cardiovascular: Positive for leg swelling. Gastrointestinal: Negative for diarrhea and vomiting. Musculoskeletal: Negative for myalgias. Objective: Vital signs were reviewed. Vitals: 02/07/21 1612 02/07/21 1635 BP: (!) 182/88 162/92 BP Location: Left arm Left arm Patient Position: Sitting Sitting Pulse: 85 Resp: 16 Temp: 36.9 ??C (98.4 ??F) TempSrc: Tympanic SpO2: 97% Weight: 64.9 kg (143 lb) [...] and dry MSK/Neuro: symmetric limb movement, bilateral non pitting edema Psych: alert and oriented to person/place/time, appropriate judgment and insight Duane Callahan MD documented in this encounter Miscellaneous Notes * Assessment & Plan Note - Duane aCllahan MD - 02/07/2021 5:35 PM CDTAssociated Problem(s): Primary hypertension Blood pressure above goal Add hydrochlorothiazide to 10mg lisinopril given peripheral edema * Assessment & Plan Note - Duane Callahan MD - 02/07/2021 5:35 PM CDTAssociated Problem(s): 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 2 diabetes mellitus ([facility]) ([facility]) (Deleted) Following with nephrology, reviewed last note * Assessment & Plan Note - Duane Callahan MD - 02/07/2021 5:34 PM CDTAssociated Problem(s): Type 2 diabetes mellitus with diabetic neuropathy, with long-term current use of insulin ([facility]) Lab Results Component Value Date HGBA1C 8.4 (H) 02/07/2021 Increase jardiance to 25mg Continue lantus 47 units Continue trulicity 4.5mg weekly * Addendum Note - Duane Callahan MD - 02/07/2021 3:30 PM CDT Addended by: DUANE CALLAHAN on: 02/08/2021 06:56 AM Modules accepted: Orders documented in this encounter Plan of Treatment Upcoming Encounters Date Type Department Care Team (Latest Contact Info) Description 07/13/2024 9:00 AM INSPECTOR AND SORTER Hospital Encounter [facility] [address] [place] [address] Jaya Grier MD [address] [place] [address] [address] [place] [address] 07/13/2024 9:00 AM INSPECTOR AND SORTER - 07/13/2024 9:30 AM INSPECTOR AND SORTER Surgery [facility] [address] [place] [address] Jaya Grier MD [facility] [facility] [address] [place] [address] ESOPHAGOGASTRODUODENOSCOPY Scheduled Procedures Name Priority Associated Diagnoses Date/Ti sc ESOPHAGOGASTRODUODENOSCOPY Anemia, unspecified type Gastritis without bleeding, unspecified chronicity, unspecified gastritis type 07/13/2024 9:00 AM INSPECTOR AND SORTER COLONOSCOPY Iron deficiency anemia due to chronic blood loss documented as of this encounter Results * Lipid panel (02/07/2021 5:20 PM CDT) Cholesterol 133 30 - 199 mg/dL NILSA RODRIGES Comment: Interpretive Data Ages [...] last revised on 2018. Testing performed by: [facility], [address] [place] [address]., [address] Triglycerides 147 <=149 mg/dL NILSA Comment: Interpretive [...] last revised on 2018. Testing performed by: [address] [address] HDL 51 >=40 mg/dL NILSA Comment: Interpretive Data Ages [...] last revised on 2018. Testing performed by: [address] [address] LDL, calculated 53 <=129 mg/dL NILSA Comment: Interpretive Data Ages [...] last revised on 2018. Testing performed by: [address] [address] Non-HDL Cholesterol 82 mg/dL [facility] Comment: Interpretive Data Ages < or = [...] last revised on 2018. Testing performed by: [address] [address] Chol/HDL ratio 3 NILSA Comment:Testing performed by : [address] [address] Blood 02/07/2021 5:20 PM CDT 02/07/2021 5:33 PM CDT Duane Callahan MD LAB BLOOD ORDERAB LES Final Result Performing Organization Address City/[facility] Co de Phone Number NILSA [address] [facility] [place] [address] * (ABNORMAL) Iron profile w/ IBC (02/07/2021 5:20 PM CDT) Iron 57 35 - 145 mcg/dL NILSA Comment:Testing performed by : [address] [address] TIBC 231(L) 250 - 400 mcg/dL NILSA Comment:Testing performed by : [address] [address] Transferrin saturation 25 20 - 50 % NILSA Comment:Testing performed by : [address] [address] Blood 02/07/2021 5:20 PM CDT 02/07/2021 5:33 PM CDT Duane Callahan MD LAB BLOOD ORDERAB LES Final Result Performing Organization Address City/[facility] [address]/ZIP Co de Phone Number [facility] [address] [facility] [place] [address] * PTH (02/07/2021 5:20 PM CDT) PTH 36.0 15.0 - 65.0 pg/mL NILSA Comment:Testing performed by : [address] [address] Blood 02/07/2021 5:20 PM CDT 02/07/2021 5:34 PM CDT Duane Callahan MD LAB BLOOD ORDERAB LES Final Result Performing Organization Address [facility] de Phone Number [place] [phone] [place] [address] * (ABNORMAL) Hemoglobin A1c (02/07/2021 5:20 PM CDT) Hgb A1C 8.4(H) 4.0 - 5.6 % NILSA Comment:Testing performed by : [address] [address] Estimated Average Glucose 194 mg/dL NILSA Comment: The ADA recommends reporting an estimated Average Glucose (eAG) with all Hemoglobin A1c results using the equation derived from a study of 507 normal and diabetic adults. ??Minority populations were underrepresented and children were not included. ?? (Diabetes Care 31:9037-9078, 2008). ??The eAG is not equivalent to a fasting glucose. Testing performed by: [address] [address] Blood 02/07/2021 5:20 PM CDT 02/07/2021 5:34 PM CDT Duane Callahan MD LAB BLOOD ORDERAB LES Final Result Performing Organization Address [facility] Co de Phone Number [facility] [address] [facility] [place] [address] * (ABNORMAL) CBC with auto differential (02/07/2021 5:20 PM CDT) Pathologist [facility] WBC 8.8 3.8 - 9.9 K/cumm NILSA Comment:Testing performed by : [address] [address] Hgb 10.0(L) 11.9 - 15.5 g/dL NILSA RODRIGES Comment:Testing performed by : [address], [address] Hct 31.5(L) 35.6 - 45.5 % NILSA Comment:Testing performed by : [address] [address] Plt 284 150 - 400 K/cumm NILSA Comment:Testing performed by : [address] [address] MPV 10.4 9.1 - 12.3 fL NILSA Comment:Testing performed by : [address] [address] RBC 3.34(L) 3.90 - 5.20 M/cumm NILSA Comment:Testing performed by : [address], [address] MCV 94.3 81.3 - 96.4 fL NILSA Comment:Testing performed by : [address], [address] MCH 29.9 27.1 - 33.3 pg NILSA Comment:Testing performed by : [address] [address] MCHC 31.7(L) 32.3 - 35.7 g/dL NILSA Comment:Testing performed by : [address], [address] RDW CV 14.1 11.1 - 14.9 % NILSA Comment:Testing performed by : [address], [address] RDW SD 48.9(H) 35.7 - 48.1 fL NILSA Comment:Testing performed by : [address], [address] NRBC abs 0.00 0.00 - 0.01 K/cumm NILSA Comment:Testing performed by : [address], [address] Blood 02/07/2021 5:20 PM CDT 02/07/2021 5:34 PM CDT Duane Callahan MD LAB BLOOD ORDERAB LES Final Result NILSA [address] [facility] Department [place] [address] * (ABNORMAL) Comprehensive metabolic panel (02/07/2021 5:20 PM CDT) Sodium 143 135 - 145 mmol/L NILSA Comment:Testing performed by : [address] [address] Potassium, pl 3.8 3.3 - 4.9 mmol/L NILSA Comment:Testing performed by : [address] [address] Chloride 104 97 - 110 mmol/L NILSA Comment:Testing performed by : [address] [address] CO2 30 22 - 32 mmol/L NILSA Comment:Testing performed by : [address] [address] Anion gap 9 2 - 15 mmol/L NILSA Comment:Testing performed by : [address] [address] BUN 25 8 - 25 mg/dL NILSA Comment:Testing performed by : [address] [address] Creatinine 1.40(H) 0.60 - 1.10 mg/dL NILSA Comment:Testing performed by : [address] [address] Glucose 183 70 - 199 mg/dL NILSA [...] was last revised 2017. Testing performed by: [address] [address] Calcium 9.5 8.5 - 10.3 mg/dL NILSA Comment:Testing performed by : [address] [address] Bilirubin, total <0.2 0.1 - 1.2 mg/dL NILSA Comment:Testing performed by : [address] [address] Protein, pl 7.0 6.5 - 8.5 g/dL NILSA Comment:Testing performed by : [address] [address] Albumin 3.6 3.5 - 5.0 g/dL NILSA Comment:Testing performed by : [address] [address] Alk phos 123 40 - 130 Units/L NILSA Comment:Testing performed by : [address] [address] ALT 14 7 - 45 Units/L NILSA Comment:Testing performed by : [address] [address] AST 16 10 - 45 Units/L NILSA Comment:Testing performed by : [address] [address] Blood 02/07/2021 5:20 PM CDT 02/07/2021 5:33 PM CDT Duane Callahan MD LAB BLOOD ORDERAB LES Final Result NILSA [address] [facility] Department [place] [address] * (ABNORMAL) Protein / creatinine ratio, urine, random (02/07/2021 5:20 PM CDT) Protein, ur, quant 265.0 mg/dL NILSA Comment: Interpretive Data No reference range established. Current interpretive data was last revised 2018. Testing performed by: [address] [address] Creatinine Ur 48.3 mg/dL NILSA RODRIGES Comment: Interpretive Data No reference range established. Current interpretive data was last revised 2018. Testing performed by: [facility], [address] [place] [address]., [address] Protein/creatinin e ratio 5,486.5(H ) 0.0 - 180.0 mg/g CR NILSA RODRIGES Comment:Testing performed by : [facility], [address] [place] [address]., [address] Urine 02/07/2021 5:20 PM CDT 02/07/2021 7:30 PM CDT us Duane Callahan MD LAB URINE ORDERAB LES Final Result NILSA RODRIGES [address] [facility] Department [place] [address] documented in this encounter Visit Diagnoses Diagnosis Peripheral edema- Primary Edema Hypertension associated with diabetes (HCC) Unspecified essential hypertension Uncontrolled type 2 diabetes mellitus with hyperglycemia (HCC) Stage 3b chronic kidney disease (HCC) Iron deficiency anemia, unspecified iron deficiency anemia type Hyperlipidemia associated with type 2 diabetes mellitus (HCC) Anemia, unspecified type Gastritis without bleeding, unspecified chronicity, unspecified gastritis type documented in this encounter Discontinued Medications Medication Sig Discontinue Reason Start Date End Da te empagliflozin (JARDIANCE) 10 mg tabletIndications:type 2 diabetes mellitus Take 1 tablet (10 mg total) by mouth daily before breakfast Reorder 11/13/2020 02/08/2021 documented as of this encounter Care Teams Nuclear Medical Tech Relationship Specialty Start Date End Date Duane Callahan MD PCP - General Family Medicine 08/30/19 Mark Queen MD Consulting Physician Infectious Diseases 01/10/20 documented as of this encounter
--- OUTSIDE RECORDS SUMMARY | 2024-07-04 04:18 | XMS_ITS | Encounter Summary ---
Author Organization [facility] Address [address] [place] [address] Care Team Providers Care Care Connector Name Role Phone Cherelle Corcoran MD Primary Care Pro vider Mark Queen MD Unavailable [phone] Encounter Details Date Type Department Care Team (Late st Contact Info) Description 02/08/[address] [facility] Primary Care [address] [place] [address] Natacha London MA Social History Tobacco Use Types Packs/Day Years [...] on file Legal Sex Female 9:03 AM MUSEUM DIRECTOR Gender Identity Female 02/08/2020 6:39 PM CDT Sexual Orientation Not on file documented as of this encounter Miscellaneous Notes * Telephone Encounter - Natacha London MA - 02/08/2021 4:16 PM CDT Daughter returned call to office and informed of message below by Yoly. * Telephone Encounter - Yoly Elkins LPN - 02/08/2021 4:08 PM CDT Spoke to patient's daughter-Areli, advised of A1c results, and Rx being sent to pharmacy, verbalized understanding. * Telephone Encounter - Natacha London MA - 02/08/2021 10:41 AM CDT ----- Message from Cherelle Corcoran MD sent at 02/08/2021 6:57 AM CDT ----- Please advise she increase jardiance to 25mg as a1c increased to 8.4 documented in this encounter Plan of Treatment Upcoming Encounters Date Type Department Care Team (Latest Contact Info) Description 07/13/2024 9:00 AM MUSEUM DIRECTOR Hospital Encounter [facility] GI Lab [address] [place] [address] Jaya Grier MD [facility] [facility] [address] [place] [address] 07/13/2024 9:00 AM MUSEUM DIRECTOR - 07/13/2024 9:30 AM MUSEUM DIRECTOR Surgery [facility] GI Lab [address] [place] [address] Jaya Grier MD [facility] [facility] [address] [place] [address] ESOPHAGOGASTRODUODENOSCOPY Scheduled Procedures Name Priority Associated Diagnoses Date/Ti ca ESOPHAGOGASTRODUODENOSCOPY Anemia, unspecified type Gastritis without bleeding, unspecified chronicity, unspecified gastritis type 07/13/2024 9:00 AM MUSEUM DIRECTOR COLONOSCOPY Iron deficiency anemia due to chronic blood loss documented as of this encounter Visit Diagnoses Not on filedocumented in this encounter Care Teams Care Connector Relationship Specialty Start Date End Date Cherelle Corcoran MD PCP - General Family Medicine 08/30/19 Mark Queen MD Consulting Physician Infectious Diseases 01/10/20 documented as of this encounter
--- OUTSIDE RECORDS SUMMARY | 2024-07-04 04:18 | XMS_ITS | Encounter Summary ---
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 Gender Identity Female 02/08/2020 6:39 PM CDT Sexual Orientation Not on file documented as of this encounter Plan of Treatment Upcoming Encounters Date Type Department Care Team (Latest Contact Info) Description 07/13/2024 9:00 AM SHREDDING FLOOR EQUIPMENT OPERATOR Hospital Encounter [facility] [address] [place] [address] Jaya Grier MD [address] [facility] [address] [place] [address] 07/13/2024 9:00 AM SHREDDING FLOOR EQUIPMENT OPERATOR - 07/13/2024 9:30 AM SHREDDING FLOOR EQUIPMENT OPERATOR Surgery [facility] [address] [place] [address] [place] [address] [place] [address] [address] [place] [address] ESOPHAGOGASTRODUODENOSCOPY Scheduled Procedures Name Priority Associated Diagnoses Date/Ti me ESOPHAGOGASTRODUODENOSCOPY Anemia, unspecified type Gastritis without bleeding, unspecified chronicity, unspecified gastritis type 07/13/2024 9:00 AM SHREDDING FLOOR EQUIPMENT OPERATOR COLONOSCOPY Iron deficiency anemia due to chronic blood loss documented as of this encounter Procedures Procedure Name Priority Date/Time Associated Diagnosis Comments SCAN - RADIOLOGY/IMAGING 06/23/2021 SCAN - LABS 06/23/2021 documented in this encounter Results * SCAN - LABS (06/23/2021) us Provider Scanning Final Result * SCAN - RADIOLOGY/IMAGING (06/23/2021) Anatomical Region Laterality Modality Other us Provider Scanning Edited Result - Final documented in this encounter Visit Diagnoses Not on filedocumented in this encounter Care Teams Analyst Market Intelligence Relationship Specialty Start Date End Date Cherelle Corcoran MD PCP - General Family Medicine 08/30/19 Mark Queen MD Consulting Physician Infectious Diseases 01/10/20 documented as of this encounter
--- OUTSIDE RECORDS SUMMARY | 2024-07-04 04:18 | XMS_ITS | Encounter Summary ---
Author Organization [facility] Healthcare Address [address] [place] [address] Care Team Providers Care Merchandise Supervisor Name Role Phone Cherelle Corcoran MD Primary Care Pro vider Mark Queen MD Unavailable [phone] Reason for Referral * Consultation (Routine) - Closed Specialty Diagnoses / Procedures Referred By Contflex t Referred To Contact Nephrology Diagnoses Stage 3b chronic kidney disease (HCC) Tati Duvall MD [address] [place] [address] Phone: tel: fax: [facility] (All Locations) Referral ID Status Reason Start Date Expiration Date V isits Requested Visits Authorized [id number] Closed Specialty Services Required 08/13/2021 09/12/2022 1 1 Question Answer Please select the performing region: [facility] (All Locations) [167] # of visits: 1 SPECIALIST Reason for Visit * Reason Comments Weakness - Generalized Encounter Details Date Type Department Care Team (Latest Contact Info) Description 08/07/2021 8:24 PM RAIL SPECIALIST - 08/14/2021 7:17 PM RAIL SPECIALIST Hospital Encounter [facility] [address] [place] [address] Yrn Li MD PhD [address] [place] [address] Markie Demarco MD [address] [place] [address] Tati Duvall MD [address] [facility] [place] [address] Inez Iniguez MD [address] [facility] [id number] [place] [address] STEFANO (acute kidney injury) (CMS/HCC) ([facility]) (Primary Dx); Generalized weakness; Delirium; Uncontrolled type 2 diabetes mellitus with hyperglycemia ([facility]) ([facility]); Dementia without behavioral disturbance, unspecified dementia type ([facility]); Schizoaffective disorder, bipolar type ([facility]) ([facility]); Stage 3b chronic kidney disease ([facility]) Discharge Disposition: Discharge to SNF Social History [...] on file Legal Sex Female 9:03 AM RAIL SPECIALIST Gender Identity Female 02/08/2020 6:39 PM CDT Sexual Orientation Not on file documented as of this encounter Last Filed Vital Signs Vital Sign Reading Time Taken Comments Blood Pressure 137/50 08/14/2021 3:00 PM RAIL SPECIALIST Pulse 76 08/14/2021 3:00 PM RAIL SPECIALIST Temperature 36.6 ??C (97.9 ??F) 08/14/2021 3:00 PM CS T Respiratory Rate 17 08/14/2021 3:00 PM RAIL SPECIALIST Oxygen Saturation 96% 08/14/2021 3:00 PM RAIL SPECIALIST Inhaled Oxygen Concentration - - Weight 65.6 kg (144 lb 10 oz) 08/08/2021 2:40 AM RAIL SPECIALIST Height 157.5 cm (5' 2 ) 08/08/2021 2:40 AM RAIL SPECIALIST Body Mass Index 26.45 08/08/2021 2:40 AM RAIL SPECIALIST documented in this encounter Discharge Diagnoses Diagnosis Acute kidney failure, unspecified ([facility]) - ACUTE KIDNEY FAILURE, UNSPECIFIED Acute kidney failure, unspecified COVID-19 - COVID-19 Other toxic encephalopathy - OTHER TOXIC ENCEPHALOPATHY Adverse effect of butyrophenone and thiothixene neuroleptics, initial encounter - ADVERSE EFFECT OF BUTYROPHENONE AND THIOTHIXENE NEUROLEPTICS, INITIAL ENCOUNTER Unspecified place or not applicable - UNSPECIFIED PLACE OR NOT APPLICABLE Other specified events, undetermined intent, initial encounter - OTHER SPECIFIED EVENTS, UNDETERMINED INTENT, INITIAL ENCOUNTER Type 2 diabetes mellitus with hyperglycemia ([facility]) ([facility]) - TYPE 2 DIABETES MELLITUS WITH HYPERGLYCEMIA Unspecified dementia without behavioral disturbance - UNSPECIFIED DEMENTIA WITHOUT BEHAVIORAL DISTURBANCE Schizoaffective disorder, bipolar type ([facility]) ([facility]) - SCHIZOAFFECTIVE DISORDER, BIPOLAR TYPE Schizoaffective disorder, unspecified condition Weakness - WEAKNESS Other malaise and fatigue Retention of urine, unspecified - RETENTION OF URINE, UNSPECIFIED Anemia, unspecified - ANEMIA, UNSPECIFIED Constipation, unspecified - CONSTIPATION, UNSPECIFIED Dorsalgia, unspecified - DORSALGIA, UNSPECIFIED Type 2 diabetes mellitus with diabetic neuropathy, unspecified ([facility]) - TYPE 2 DIABETES MELLITUS WITH DIABETIC NEUROPATHY, UNSPECIFIED Gastro-esophageal reflux disease without esophagitis - GASTRO-ESOPHAGEAL REFLUX DISEASE WITHOUT ESOPHAGITIS Type 2 diabetes mellitus with diabetic chronic kidney disease ([facility]) - TYPE 2 DIABETES MELLITUS WITH DIABETIC CHRONIC KIDNEY DISEASE Hypertensive chronic kidney disease with stage 1 through stage 4 chronic kidney disease, or unspecified chronic kidney disease - HYPERTENSIVE CHRONIC KIDNEY DISEASE WITH STAGE 1 THROUGH STAGE 4 CHRONIC KIDNEY DISEASE, OR UNSPECIF Chronic kidney disease, stage 3b ([facility]) - CHRONIC KIDNEY DISEASE, STAGE 3B Hyperlipidemia, unspecified - HYPERLIPIDEMIA, UNSPECIFIED Type 2 diabetes mellitus with diabetic polyneuropathy (HCC) - TYPE 2 DIABETES MELLITUS WITH DIABETIC POLYNEUROPATHY Other fatigue - OTHER FATIGUE Unspecified osteoarthritis, unspecified site - UNSPECIFIED OSTEOARTHRITIS, UNSPECIFIED SITE 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) drug therapy - OTHER RETIREMENT (CURRENT) DRUG THERAPY 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 (HCC) - 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 Of note, pt was to be discharged 08/13, was found to be COVID positive, but remains stable for discharge 08/14. DETAILS OF HOSPITAL STAY Presenting Problem/History of Present Illness: 70 y.o.??Fwith PMH of??dementia,??schizophrenia, DM, HTN, HLD and CKD who p/w weakness, fatigue andconfusion. ?? History obtained through patient and daughter, Ursula, who was at bedside. Pt reports decreased energy for approx 1 month. She denies confusion but daughter reports she has been slower to respond and given some inappropriate answers during this time, poor appetite and lowerPO intake. Denies fever/chills, N/V/C/D, dysuria, sore throat, flank pain, dysphagia, choking, vision changes. Recently admitted to [facility] 07/31-08/04 for falls and STEFANO. Rx'd course of Augmentin but no infectious source found per PCP note and daughter. Of note, switched from Risperdal 2mg daily to Haldol 5mg qhs on 07/01/21 due to worsened diabetes control. Daughter does feel pt's increased fatigue/sedation started around that time. Told to switch back to Risperdal at telehealth visit w/ Psych 08/07. Last Haldol dose 08/06. Has been experiencing episodes of legs giving out during the past month. Pt has known diabetic neuropathy, worse RLE >LLE, LE >UE. During the past month, reports spells of lightheadedness/dizziness and legs giving out causing her to fall or slump to the floor. Has occurred with rising andmicturation. Last fall was day of presentation; pt says she was on the toilet and felt lightheaded when arising, so had to suddenly sit back down; did not fall off toilet or experience any trauma. Denies syncope/LOC, traumatic fall, head strike, bladder/bowel incontinence, saddle anesthesia, back pain. XR lumbar w/ DDD 06/11. TTE 07/2021 at OSH reported in cardiology note to show EF 60-65%, G1DD, P ASP 35mmHg. Has had her antihypertensive regimen decreased over past few weeks, now just [id number] daily (changed 08/05). ?? In ED, BP 133/68, HR 89, RR 15, SpO2 96% on RA, afebrile. Initial labs significant for WBC 12.5, Hgb 9.7, Creat 2.36, BUN 40, bicarb 23. Pt given 1L LR in ED w/ appropriate UOP response. VSS on arrival to floor. ?? Hospital Course: #Fatigue Pt reported decreased energy, poor appetite, and poor PO intake for 1 month. Has been experiencing episodes of legs giving out during this time, discussed below. These symptoms began around the time she was switched from Risperdal to Haldol on 07/01/21 for her schizophrenia. Last Haldol dose 08/06.Her mental status was alert and oriented to person, place, and situation, but not time, which is her baseline. Workup only notable for mildly elevated WBC 12.4, with no infectious symptoms and no meningismus. Urinalysis was noninfectious, Chest X ray was clear, patient had no visible wounds, blood cultures pending. Risperdal and Lyrica, were initially held due to concern for sedation, however were restarted several days prior to discharge without sedating effects witnessed. Patient's fatigue was attributed to recent change in medication from risperdal to haldol. Physical Therapy saw patient and recommended placement at a Care Home Facility. #Falls #Neuropathy Pt has known diabetic neuropathy. During the past month, reports spells of lightheadedness/dizziness and legs giving out causing her to fall or slump to the floor. Denied syncope, loss of consciousness, traumatic fall, head strike, bladder/bowel incontinence, saddle anesthesia, back pain. Due to history of leg weakness, CT lumbar spine was performed which showed mild degenerative changes of thelumbar spine without significant spinal canal stenosis identified, an inferior endplate irregularity and sclerosis of L4 vertebral body that was favored to be degenerative. Orthostatic vitals were borderline positive due to drop in diastolic blood pressure by 10 and lightheadedness. Patient was enco uraged to have adequate oral intake.Capsaicin cream was started for patient's diabetic neuropathy, which helped with her pain. Patient was prescribed a walker upon discharge. #CKD Patient presented with Creatinine of 2.36, unclear baseline, though Creatinine peaked at 3.96 at recent Outside Hospital admission . Patient required a straight catheterization once. Urinalysis showed glucose, protein, hyaline casts. She received IV fluids in the Emergency Department. Patient's kidney function was thought to be likely recovering from recent Acute Kidney Injury. She had adequate urine output, and Creatinine improved to 1.65 4 days prior to discharge. #Type 2 Diabetes Mellitus Patient reportedly taking 15 units of lantus twice daily at home. A1c of 8.0. Patient received 15 units lantus nightly and 5 units three-times daily prior to meals along with a sliding scale with adequate blood glucose control while admitted. This regimen was recommended to be continued on discharge to Care Home Facillity. #Hypertension Held home amlodipine given c/f orthostasis, though orthostatic vital signs were negative. Held hydrochlorothiazide given concern for Acute Kidney Injury, and continued to hold upon discharge with plans for patient to follow up with Primary Care Physician regarding whether to restart hydrochlorothiazide. Active Issues Requiring Follow-up: Please follow up with your Primary Care Physician regarding whether to restart your Hydrochlorothiazide and regarding your - ongoing titration of diabetes regimen. - if BP is elevated, would favor re-starting amlo at 5mg Test Results Pending at Discharge: Pending Labs Order Current Status Urinalysis reflex to microscopic and culture Urine, clean voided Collected (08/13/21 1220) Operative Procedures Performed: None Other Procedures: None Pertinent Test Results: CT Lumbar Spine IMPRESSION: ?? Mild degenerative changes of the lumbar spine without significant spinal canal stenosis identified. ?? Inferior endplate irregularity and sclerosis of L4 vertebral body is favored to be degenerative. If there is any concern for spinal infection, MRI of the lumbar spine could be obtained for further evaluation. ?? Discharge Details Physical Exam at Discharge: Discharge Condition: stable Pulse: 72 Resp: 19 BP: 135/66 Temp: 36.5 ??C (97.7 ??F) Weight: 65.6 kg (144 lb 10 oz) Pertinent Exam Findings at Discharge: General: NAD HEENT: PERRL, EOMI, eyes no-icteric, non-injected. MMM. OP clear. Neck: no cervical LAD, no meningismus Lungs: CTAB, no wheezes, rales, or rhonchi CV: RRR, normal S1 and S2, no m/g/r, no JVD Abdomen: soft, mildly tender in suprapubic/periumbilical region without rebound or guarding. Non-distended, normoactive bowel sounds. : deferred Extremities: no peripheral edema, clubbing, cyanosis Skin: no rashes, bruising. Neuro: AO to person, place, and situation. 5/5 strength in all extremities. Psych: euthymic, flat affect Discharge Disposition: Code Status at Discharge: Full Code Discharge Instructions: You were admitted due to your recent falls and increased fatigue. We think that the fatigue is due to the Haldol that you had been receiving. We think that the falls are likely related to general weakness from being in the hospital and from your ongoing diabetic neuropathy. Please follow up with your Primary Care Physician regarding whether to restart your Hydrochlorothiazide (blood pressure) medication, as well as your amlodipine medication. Please STOP taking your Augmentin. We do not think that you have an ongoing infection. If you develop fevers, a new cough, or burning when you pee, please call your physician or return to the Emergency Department. Please continue to drink adequate amounts of fluids. If you develop worsening abdominal pain, burning when you urinate, or inability to urinate, please let your physician know or return to the Emergency Department. Nephrology (the kidney doctors) should call you to set up an appointment regarding your Chronic Kidney Disease. If you do not hear from them within a week, then please call [phone]. Other Instructions Walker Height: 157.5 cm (5' 2 ) Weight: 65.6 kg (144 lb 10 oz) Type: Adult (163-188 cm tall) Bariatric (>300#): No Rollator: No Platform: No Wheels: Front Wheeled Wheel size: 3 Patient has mobility limitation requiring use and patient is able to use walker; and functional mobility deficit is resolved by use of walker?: Yes DME services provided by: [facility] Walker Height: 157.5 cm (5' 2 ) Weight: 65.6 kg (144 lb 10 oz) Type: Adult (163-188 cm tall) Bariatric (>300#): No Rollator: No Platform: No Wheels: Front Wheeled Wheel size: 3 Patient has mobility limitation requiring use and patient is able to use walker; and functional mobility deficit is resolved by use of walker?: Yes DME services provided by: [facility] The DME provider for your walker is [facility] any questions or concerns call [phone] Discharge Medications: Current Medications TAKE these medications atorvastatin 40 mg tablet Take 1 tablet (40 mg total) by mouth daily Commonly known as: LIPITOR BD Arlyn 2nd Gen Pen Needle 32 gauge x 5/32 needle USE TO INJECT BASAGLAR EVERY NIGHT AT BEDTIME Generic drug: pen needle, diabetic Blood Pressure Cuff misc Use to check blood pressure daily Generic drug: miscellaneous medical supply blood pressure monitor kit Check BP as instructed capsaicin 0.025 % cream Apply topically 2 (two) times a day Commonly known as: ZOSTRIX conner.stocking,thigh,reg,med misc Wear as much as possible famotidine 40 mg tablet Take 1 tablet (40 mg total) by mouth daily Commonly known as: PEPCID glucose 4 gram chewable tablet Take 4 tablets (16 g total) by mouth as needed for low blood sugar (less than 70) and let Dr. Corcoran know! * insulin lispro 100 unit/mL vial for injection Inject 5.31 Units under the skin 3 (three) times a day with meals For: diabetes Commonly known as: HumaLOG, ADMELOG * insulin lispro 100 unit/mL vial for injection Inject 0-10 Units under the skin 3 (three) times a day with meals For: diabetes Commonly known as: HumaLOG, ADMELOG * insulin lispro 100 unit/mL vial for injection Inject 0-5 Units under the skin nightly For: diabetes Commonly known as: HumaLOG, ADMELOG INSULIN SYRINGE-NEEDLE U-100 MISC 3 times a day lancets misc Check blood sugar up to 3 times a day * LANTUS 100 unit/mL (3 mL) pen for injection Inject 15 Units under the skin nightly Generic drug: insulin glargine * insulin glargine 100 unit/mL vial for injection Inject 18 Units under the skin nightly For: diabetes Commonly known as: LANTUS, SEMGLEE lidocaine 5 % Place 1 patch on the skin daily Apply to painful area 12 hours per day, remove for 12 hours. Commonly known as: LIDODERM multivitamin with minerals tablet Take 1 tablet by mouth daily [id number] 3.5mg/mL-10,000 unit/mL-0.1 % ophthalmic suspension Commonly known as: MAXITROL omeprazole 20 mg capsule Take 1 capsule (20 mg total) by mouth daily Commonly known as: PriLOSEC OneTouch Verio test strips strip TEST 3 [...] known as: RisperDAL * This list has 5 medication(s) that are the same as other medications prescribed for you. Read the directions carefully, and ask your doctor or other care provider to review them with you. Outpatient Follow-Up: Future Appointments Date Time Provider Department Center 08/19/2021 8:00 AM Anant Kauffman MD [facility] 08/19/2021 1:45 PM Adryan Swenson MD [facility] Specialty 09/02/2021 4:00 PM Cherelle Corcoran MD [facility] PC 09/19/2021 2:45 PM Cherelle Corcoran MD [facility] [address] PC 11/06/2021 3:15 PM [facility] [facility] Contact Information for Follow-ups [facility] (All Locations) Next Steps: Follow up Questions: Please select the performing region: [facility] (All Locations) # of visits: 1 Referral Status: Ready for Initial Scheduling Cosigned by Tati Duvall MD at 08/15/2021 1:00 PM RAIL SPECIALIST SPECIALIST SPECIALIST SPECIALIST SPECIALIST SPECIALIST SPECIALIST Associated attestation - Tati Duvall MD - 08/15/2021 1:00 PM RAIL SPECIALIST I have seen and examined the patient on 08/14/2021. I agree with the findings and plan of care as discussed with the resident/fellow.. documented in this encounter Discharge Instructions * Discharge Instructions* Kenny Dixon MD - 08/13/2021 3:23 PM RAIL SPECIALIST You were admitted due to your recent falls and increased fatigue. We think that the fatigue is due to the Haldol that you had been receiving. We think that the falls are likely related to general weakness from being in the hospital and from your ongoing diabetic neuropathy. Please follow up with your Primary Care Physician regarding whether to restart your Hydrochlorothiazide (blood pressure) medication. Please STOP taking your Augmentin. We do not think that you have an ongoing infection. If you develop fevers, a new cough, or burning when you pee, please call your physician or return to the Emergency Department. Please continue to drink adequate amounts of fluids. If you develop worsening abdominal pain, burning when you urinate, or inability to urinate, please let your physician know or return to the Emergency Department. Nephrology (the kidney doctors) should call you to set up an appointment regarding your Chronic Kidney Disease. If you do not hear from them within a week, then please call [phone]. SPECIALIST * Discharge Instr - Other Orders* Dagmar Parra RN - 08/13/2021 3:41 PM RAIL SPECIALIST The DME provider for your walker is [facility] any questions or concerns call [phone] SPECIALIST SPECIALIST documented in this encounter Medications at Time [...] 2 each 1 05/28/2021 4 famotidine (PEPCID) 40 mg tabletIndications:G astroesophageal reflux [...] Filled Start Date End Date insulin glargine (LANTUS, SEMGLEE) 100 unit/mL vial for injectionIndication s:Diabetes Mellitus Inject 18 Units under the skin nightly 10 mL 08/14/2021 2 insulin lispro (HumaLOG, ADMELOG) 100 unit/mL vial for injectionIndication s:Diabetes Mellitus Inject 0-5 Units under the skin nightly 10 mL 08/13/2021 2 insulin lispro (HumaLOG, ADMELOG) 100 unit/mL vial for injectionIndication s:Diabetes Mellitus Inject 0-10 Units under the skin 3 (three) times a day with meals 10 mL 08/13/2021 2 polyethylene glycol (MIRALAX) 17 gram packet Take 1 packet (17 g total) by mouth daily 08/14/2021 3 insulin lispro (HumaLOG, ADMELOG) 100 unit/mL vial for injectionIndication s:Diabetes Mellitus Inject 5.31 Units under the skin 3 (three) times a day with meals 10 mL 08/13/2021 2 insulin glargine (LANTUS) 100 unit/mL (3 mL) pen for injectionIndication s:Uncontrolled type 2 diabetes mellitus with hyperglycemia (HCC) Inject 15 Units under the skin nightly 50 mL 1 08/13/2021 2 capsaicin (ZOSTRIX) 0.025 % cream Apply topically 2 (two) times a day 60 g 08/13/2021 3 documented in this encounter Discharge Disposition Disposition Code Departure Means Destination [facility] documented in this encounter Progress Notes * Lorna Cleveland RN - 08/14/2021 1:46 PM CST 08/14/21 1300 Discharge Summary Chart reviewed For Medical Necessity Does patient have a planned readmission to hospital planned? No Discharge Disposition SNF, Medicare, Short Term Skilled Specify Facility [facility] (Room #201C) Facility Contact Number [phone] (fax: [phone]) Discharge Records Transfer Form Completed;Chart Copied Discharge Additional Assistance Does the patient need discharge transport arranged? No Post Discharge Care Provider Post Discharge Care Plan DC Summary has been faxed to next level of care provider (see Follow Up Providers) Per medical team, patient is medically stable for discharge at this time. Patient has been acceptedto [facility] since pt tested positive for COVID. [facility] has COVID unit that can accept pt today,then transfer her to [facility] after her COVID isolation. Pt and family are amenable to plan. CM spoke with the patient/family, admissions(Fidelia and Mati), medical team and RN in regards to discharge planning and all are agreeable to discharge. Post-acute care transfer packet completed and will be sent with the patient. RN provided with report number to nurses station. Room # 201C provided by facility. Patient prefers for her daughter to transport her to SNF. Daughter, Areli ([phone]) to case picker pt when she gets off work at 1530. Mode of transport has been discussed with the patient/family, MD, nursing staff. All are agreeable to plan and understand their responsibilities to ensure the safe transfer. SPECIALIST * Robert Owens MD - 08/14/2021 9:20 AM CST History and Physical Division of Medical Education CC: Falls Subjective The patient is a 70 y.o. female with a history of dementia,??schizophrenia, DM, HTN, HLD and CKD who p/w weakness, fatigue and confusion. Was planned for discharge yesterday, however COVID positive. Will follow up with facility today to see if COVID precautions availalble at facility. This AM, has some back pain. No cough, CP, SOB. Remains stable for DC pending placement confirmation. Past Medical History: Diagnosis Date ??? Arthritis [...] ??? amLODIPine (NORVASC) 10 mg tablet Take 1 tablet (10 mg total) by mouth daily 30 tablet 6 08/07/2021 at Unknown time ??? amoxicillin-clavulanate (AUGMENTIN) 875-125 mg per tablet Take 1 tablet by mouth Take 1 tablet q 12 hours 08/07/2021 at Unknown time ??? atorvastatin (LIPITOR) 40 mg tablet Take 1 tablet (40 mg total) by mouth daily 90 tablet 3 08/07/2021 at Unknown time ??? BD Arlyn 2nd Gen Pen Needle 32 gauge x needle USE TO INJECT BASAGLAR EVERY NIGHT AT BEDTIME 08/07/2021 at Unknown time ??? blood pressure monitor kit Check BP as instructed 1 kit 0 Unknown at Unknown time ??? conner.stocking,thigh,reg,med misc Wear as much as possible 2 each 1 08/07/2021 at Unknown time ??? famotidine (PEPCID) 40 mg tablet Take 1 tablet (40 mg total) by mouth daily 90 tablet 3 Unknownat Unknown time ??? glucose 4 gram chewable tablet Take 4 tablets (16 g total) by mouth as needed for low blood sugar (less than 70) and let Dr. Corcoran know! 50 tablet 0 Unknown at Unknown time ??? haloperidoL (HALDOL) 5 mg tablet Take 1 tablet (5 mg total) by mouth nightly 30 tablet 11 Past Week at Unknown time ??? hydroCHLOROthiazide (HYDRODIURIL) 25 mg tablet Take 1 tablet (25 mg total) by mouth daily 90 tablet 1 Past Week at Unknown time ??? lancets misc Check blood sugar up to 3 times a day 100 each 3 08/07/2021 at Unknown time ??? lidocaine (LIDODERM) 5 % Place 1 patch on the skin daily Apply to painful area 12 hours per day, remove for 12 hours. 90 patch 1 Unknown at Unknown time ??? miscellaneous medical supply (Blood Pressure Cuff) mis Use to check blood pressure daily 1 each 1 Unknown at Unknown time ??? multivitamin with minerals tablet Take 1 tablet by mouth daily 08/07/2021 at Unknown time ??? sppjbujx-cfojstgta-lxnMABIThglff (MAXITROL) 3.5mg/mL-10,000 unit/mL-0.1 % ophthalmic suspensionUnknown at Unknown time ??? omeprazole (PriLOSEC) 20 mg capsule Take 1 capsule (20 mg total) by mouth daily 90 capsule 0 Unknown at Unknown time ??? OneTouch Verio test strips strip TEST 3 TO 4 TIMES DAILY 400 each 1 08/07/2021 at Unknown time ??? pregabalin (LYRICA) 150 mg capsule TAKE 1 CAPSULE(150 MG) BY MOUTH EVERY NIGHT 30 capsule 2 08/07/2021 at Unknown time ??? risperiDONE (RisperDAL) 2 mg tablet Take 1 tablet (2 mg total) by mouth nightly 30 tablet 11 More than a month at Unknown time ??? syringe with needle, insulin (INSULIN SYRINGE[place]NEEDLE U-100 [facility] 3 times a day 08/07/2021 at Unknown time ??? [DISCONTINUED] insulin glargine (LANTUS) 100 unit/mL (3 mL) pen for injection Inject 55 Units under the skin nightly (Patient taking differently: Inject 55 Units under the skin nightly 15 units a.m 15 p.m.) 50 mL 1 08/07/2021 at Unknown time No Known Allergies Social History Tobacco Use ??? Smoking status: Never Smoker ??? Smokeless tobacco: Never Used Substance Use Topics ??? Alcohol use: Not Currently Family History Problem Relation Age of Onset ??? Stomach cancer Father Review of Systems All other systems were reviewed and negative except as per HPI . Objective Vitals: 24hr Min/Max: Temp Min: 36.7 ??C (98.1 ??F) Max: 37.1 ??C (98.8 ??F) Pulse Min: 73 Max: 92 BP Min: 136/57 Max: 178/68 Resp Min: 18 Max: 18 SpO2 Min: 96 % Max: 99 % Most Recent Vitals: Vitals: 08/14/21 0855 BP: 142/68 Pulse: 73 Resp: 18 Temp: 36.7 ??C (98.1 ??F) SpO2: 96% Intake/Output Summary (Last 24 hours) at 08/14/2021 0920 Last data filed at 08/13/20211999 Gross per 24 hour Intake 220 ml Output -- Net 220 ml Physical Exam: General: NAD HEENT: PERRL, EOMI, eyes no-icteric, non-injected. MMM. OP clear. Neck: no cervical LAD, no meningismus Lungs: CTAB, no wheezes, rales, or rhonchi in anterior [place] CV: RRR, normal S1 and S2, no m/g/r, no JVD Abdomen: soft, mildly distended, normoactive bowel sounds. : deferred Extremities: no peripheral edema, clubbing, cyanosis Skin: no rashes, bruising. Neuro: AxO to person, place, and situation. 5/5 strength in all extremities. Psych: euthymic, flat affect Lab/Radiology/Diagnostic Review: Recent Results (from the past 24 hour(s)) POCT glucose Collection Time: 08/13/21 11:42 AM Result Value Ref Range Glucose, POC 254 (H) 70 - 199 mg/dL Influenza A/B, RSV, and COVID-19 PCR Nasopharyngeal Collection Time: 08/13/21 1:37 PM Specimen: Nasopharyngeal Result Value Ref Range COVID-19 RNA Positive (A) Negative Influenza A RNA Negative Negative Influenza B RNA Negative Negative RSV RNA Negative Negative First COVID-19 test? No Employeed in healthcare? No status? No Group care resident? No Hospitalized? Yes Is patient in ICU? No Symptomatic as defined by CDC? No POCT glucose Collection Time: 08/13/21 5:03 PM Result Value Ref Range Glucose, POC 230 (H) 70 - 199 mg/dL POCT glucose Collection Time: 08/13/21 7:58 PM Result Value Ref Range Glucose, POC 180 70 - 199 mg/dL POCT glucose Collection Time: 08/14/21 6:55 AM Result Value Ref Range Glucose, POC 156 70 - 199 mg/dL Assessment/Plan 70 y.o.??F with PMH of??dementia,??schizophrenia, DM, HTN, HLD and CKD who p/w weakness, fatigue and confusion. Awaiting SNF placement. ?? #Abdominal pain Likely mild constipation. Scheduled miralax. UA not obtained. #Fatigue #Confusion Pt reports decreased energy for approx 1 month. Denies confusion but daughter reports she has been slower to respond and given some inappropriate answers during this time. Poor appetite and lower PO intake. Has been experiencing episodes of legs giving out during this time, discussed below. Denies fever/chills, N/V/C/D, dysuria, sore throat, flank pain, dysphagia, choking, vision changes. Recently admitted to [facility] 07/31-08/04 for falls and STEFANO. Rx'd course of Augmentin but no infectious source found per PCP note and daughter. Of note, switched from Risperdal 2mg daily to Haldol 5mg qhs on 07/01/21 due to worsened diabetes control. Daughter does feel pt's increased fatigue/sedation startedaround that time. Told to switch back to Risperdal at telehealth visit w/ Psych 08/07. Last Haldol dose 08/06. A&O to person, place at BL due to suspected Alzheimer's dementia; same today. In ED, WBC 12.4, VSS. Pt is alert and responding appropriately, A&O to self, place but not time, appearsat BL. No meningismus. UA noninfectious, CXR clear, no wounds, BC NGTD. BUN elevated 40, less likely as sole cause of encephalopathy. Patient is not somnolent since admission and mental status seems to be at baseline. -ddx includes medication side effect vs infection vs delirium 2/2 recent hospital admission; favor medication side effect -continue Ripserdal 2 mg qhs, avoid haldol in future #Falls #Neuropathy Pt has known diabetic neuropathy, worse RLE >LLE, LE >UE. During the past month, reports spells of lightheadedness/dizziness and legs giving out causing her to fall or slump to the floor. Hasoccurred with rising and micturation. Denies syncope/LOC, traumatic fall, head strike, bladder/bowel incontinence, saddle anesthesia, back pain. XR lumbar w/ DDD 06/11. TTE 07/2021 at OSH reported in c ardiology note to show EF 60-65%, G1DD, PASP 35mmHg. Previously rx'd lisinopril 10mg, HCTZ 25mg, amlo 5mg, hydral 25mg tid; Cards changed to just amlodipine 10mg daily on 08/05. BP 140-150s/60s in ED.Exam with sensation intact in all extremities, 5/5 strength; pt declined standing/walking but per ED report and documented exam, no ataxia. Cogwheel rigidity of neck ROM but not extremities. Did require straight cath in ED but pt reports she felt uncomfortable going , denies retention/decreased UOP at home. CT lumbar spine negative. Orthostatic vitals mildly positive, though patient having adequate PO intake. -continuing telemetry -Continue lyrica today at 150 mg qhs -continue capsaicin cream -PT/OT ?? #CKD #Urinary retention Believed 2/2 hypertension, diabetes. BL unclear, but ~1.4-1.5. Creat peak 3.9 during recent admit, now 2.36. Likely still recovering from prior STEFANO, suspected to be pre-renal. BUN/creat ratio wnl butmay have obstructive component now. UA +gluc, protein, hyaline casts. Good UOP response to fluids in ED but required straight cath. Denies decreased UOP, bladder/bowel incontinence, saddle anesthesia. -1L IVF in ED, CTM -bladder scan on arrival to floor w/ 320cc, straight cath'd -strict I&O, avoid nephrotoxins ?? #T2DM Previously on Jardiance, Trulicity, which were dc'd iso STEFANO. Insulin regimen changed from 55U Lantus nightly to 15U lantus bid for hypoglycemia to 70s. A1c 8.0 08/13. -Lantus 18U qhs, 5U Lispro TIDAC, SSI while inpatient -consistent carb diet ?? #Schizophrenia Baseline +AH but denies on exam. Managed on Risperidone 2mg daily prior to switch to Haldol 5mg daily for concerns of worsening diabetic control. As above, appears to have had side effects from Haldol, so Psychiatry switched back to Risperidone 2mg 08/07. -last haldol 08/06 -restarted risperidol on 08/11. No signs of sedation. ?? #Hypertension #Hyperlipidemia BP 140-150s/60s in ED. Previously rx'd lisinopril 10mg, HCTZ 25mg, amlo 5mg, hydral 25mg tid; Cardschanged to just amlodipine 10mg daily on 08/05. TTE 07/2021 w/ EF 60-65%, G1DD, PASP 35. -atorva 40 - holding amlo 10mg given c/f orthostasis ?? #Anemia, normocytic BL Hgb 10 iso CKD, 9.7 on admission. Tsat 25, TIBC 231, B12 684, folate >20 01/2021. No s/o bleeding. ?? Code Status: Full Code Diet: Adult Diet Regular, Restricted; Consistent Carbohydrate; Renal DVT Prophylaxis: SQH Access: PIV Dispo: SNF pending placement Robert Owens MD Cosigned by Tati Duvall MD at 08/15/2021 1:00 PM RAIL SPECIALIST SPECIALIST SPECIALIST Associated attestation - Tati Duvall MD - 08/15/2021 1:00 PM RAIL SPECIALIST I have seen and examined the patient on 08/14/2021. I agree with the findings and plan of care as discussed with the resident/fellow.. * Dagmar Parra RN - 08/13/2021 2:13 PM CST 08/09/21 1222 Discharge Summary Chart reviewed For Medical Necessity Does patient have a planned readmission to hospital planned? No Discharge Disposition SNF, Medicare, Short Term Skilled Specify Facility [facility] Contact Number [phone] Ghosh Facility Attending Contact Number [phone] Discharge Additional Assistance Does the patient need discharge transport arranged? No (family) Post Discharge Care Provider Post Discharge Care Plan DC Summary has been faxed to next level of care provider (see Follow Up Providers) Per medical team, patient is medically stable for discharge at this time. event marketing manager spoke with Fidelia in admissions and patient has been accepted to [facility]. CM spoke with the patient and daughter, medical team and RN in regards to discharge planning and all are agreeable to discharge. Post acute care transfer packet completed and will be sent with patient. RN to call report to: [phone]. Orders have been faxed to [phone]. Transportation provided by patient's daughter. Pateint discharged with a walker from [facility] delivered bedside. For emergency needs from 4:31p.m. - 7:59a.m., please call the restoration silversmith [phone]. For weekend/holiday needs from 8:00a.m. - 4:30p.m., please call the Weekend International Marketing Manager . SPECIALIST SPECIALIST * Dagmar Parra RN - 08/13/2021 2:12 PM CST 08/13/21 1412 Communications Important Message from Medicare notice given to patient? Yes Care Home Facility list given to patient/international representative? Yes SPECIALIST * Gm Wilson - 08/13/2021 11:41 AM CST Spiritual Care Note Chaplain Gm Wilson M.Div, [facility] 08.13.21 1050 08/13/21 1000 Time Spent Start Time 1040 Stop Time 1050 Time Calculation (min) 10 min Patient Spiritual Assessment Spirituality Assessed Focus of Care Spiritual Needs Sacred text (Bible) Clinical Encounter Type Visited With Patient Response Type Routine visit Reason for visit Support Referral To [facility] Outcomes and Progress Demonstrating care and respect Achieved Interventions Interventions Active listening;Offer spiritual/christian support SPECIALIST * Kenny Dixon MD - 08/13/2021 10:47 AM CST History and Physical Division of Medical Education CC: Falls Subjective The patient is a 70 y.o. female with a history of dementia,??schizophrenia, DM, HTN, HLD and CKD who p/w weakness, fatigue and confusion. Awaiting placement. This AM complaining mild suprapubic and left sided abdominal pain. Also bilateral buttocks pain. Denies chest pain, shortness of breath, fevers, and chills. Past Medical History: Diagnosis Date ??? Arthritis [...] ??? amLODIPine (NORVASC) 10 mg tablet Take 1 tablet (10 mg total) by mouth daily 30 tablet 6 08/07/2021 at Unknown time ??? amoxicillin-clavulanate (AUGMENTIN) 875-125 mg per tablet Take 1 tablet by mouth Take 1 tablet q 12 hours 08/07/2021 at Unknown time ??? atorvastatin (LIPITOR) 40 mg tablet Take 1 tablet (40 mg total) by mouth daily 90 tablet 3 08/07/2021 at Unknown time ??? BD Arlyn 2nd Gen Pen Needle 32 gauge x 5/32 needle USE TO INJECT BASAGLAR EVERY NIGHT AT BEDTIME 08/07/2021 at Unknown time ??? blood pressure monitor kit Check BP as instructed 1 kit 0 Unknown at Unknown time ??? conner.stocking,thigh,reg,med misc Wear as much as possible 2 each 1 08/07/2021 at Unknown time ??? famotidine (PEPCID) 40 mg tablet Take 1 tablet (40 mg total) by mouth daily 90 tablet 3 Unknownat Unknown time ??? glucose 4 gram chewable tablet Take 4 tablets (16 g total) by mouth as needed for low blood sugar (less than 70) and let Dr. Corcoran know! 50 tablet 0 Unknown at Unknown time ??? haloperidoL (HALDOL) 5 mg tablet Take 1 tablet (5 mg total) by mouth nightly 30 tablet 11 Past Week at Unknown time ??? hydroCHLOROthiazide (HYDRODIURIL) 25 mg tablet Take 1 tablet (25 mg total) by mouth daily 90 tablet 1 Past Week at Unknown time ??? insulin glargine (LANTUS) 100 unit/mL (3 mL) pen for injection Inject 55 Units under the skin nightly (Patient taking differently: Inject 55 Units under the skin nightly 15 units a.m 15 p.m.) 50 mL 1 08/07/2021 at Unknown time ??? lancets [facility] Check blood sugar up to 3 times a day 100 each 3 08/07/2021 at Unknown time ??? lidocaine (LIDODERM) 5 % Place 1 patch on the skin daily Apply to painful area 12 hours per day, remove for 12 hours. 90 patch 1 Unknown at Unknown time ??? miscellaneous medical supply (Blood Pressure Cuff) [facility] Use to check blood pressure daily 1 each 1 Unknown at Unknown time ??? multivitamin with minerals tablet Take 1 tablet by mouth daily 08/07/2021 at Unknown time ??? yvjknwmb-fgwthlxzg-xaqDJWSJzyfxi (MAXITROL) 3.5mg/mL-10,000 unit/mL-0.1 % ophthalmic suspensionUnknown at Unknown time ??? omeprazole (PriLOSEC) 20 mg capsule Take 1 capsule (20 mg total) by mouth daily 90 capsule 0 Unknown at Unknown time ??? OneTouch Verio test strips strip TEST 3 TO 4 TIMES DAILY 400 each 1 08/07/2021 at Unknown time ??? pregabalin (LYRICA) 150 mg capsule TAKE 1 CAPSULE(150 MG) BY MOUTH EVERY NIGHT 30 capsule 2 08/07/2021 at Unknown time ??? risperiDONE (RisperDAL) 2 mg tablet Take 1 tablet (2 mg total) by mouth nightly 30 tablet 11 More than a month at Unknown time ??? syringe with needle, insulin (INSULIN SYRINGE-NEEDLE U-100 [facility] 3 times a day 08/07/2021 at Unknown time No Known Allergies Social History Tobacco Use ??? Smoking status: Never Smoker ??? Smokeless tobacco: Never Used Substance Use Topics ??? Alcohol use: Not Currently Family History Problem Relation Age of Onset ??? Stomach cancer Father Review of Systems All other systems were reviewed and negative except as per HPI . Objective Vitals: 24hr Min/Max: Temp Min: 36.5 ??C (97.7 ??F) Max: 36.6 ??C (97.9 ??F) Pulse Min: 70 Max: 85 BP Min: 149/61 Max: 161/61 Resp Min: 17 Max: 19 SpO2 Min: 97 % Max: 99 % Most Recent Vitals: Vitals: 08/13/21 0837 BP: 161/61 Pulse: 85 Resp: Temp: SpO2: 98% Intake/Output Summary (Last 24 hours) at 08/13/2021 1050 Last data filed at 08/13/2021 0650 Gross per 24 hour Intake 900 ml Output 1325 ml Net -425 ml Physical Exam: General: NAD HEENT: PERRL, EOMI, eyes no-icteric, non-injected. MMM. OP clear. Neck: no cervical LAD, no meningismus Lungs: CTAB, no wheezes, rales, or rhonchi CV: RRR, normal S1 and S2, no m/g/r, no JVD Abdomen: soft, mildly tender, non-distended, normoactive bowel sounds. : deferred Extremities: no peripheral edema, clubbing, cyanosis Skin: no rashes, bruising. Neuro: AO to person, place, and situation. 5/5 strength in all extremities. Psych: euthymic, flat affect Lab/Radiology/Diagnostic Review: Recent Results (from the past 24 hour(s)) POCT glucose Collection Time: 08/12/21 11:45 AM Result Value Ref Range Glucose, POC 220 (H) 70 - 199 mg/dL POCT glucose Collection Time: 08/12/21 4:56 PM Result Value Ref Range Glucose, POC 192 70 - 199 mg/dL POCT glucose Collection Time: 08/12/21 7:58 PM Result Value Ref Range Glucose, POC 153 70 - 199 mg/dL POCT glucose Collection Time: 08/13/21 7:50 AM Result Value Ref Range Glucose, POC 173 70 - 199 mg/dL Assessment/Plan 70 y.o.??F with PMH of??dementia,??schizophrenia, DM, HTN, HLD and CKD who p/w weakness, fatigue and confusion. Awaiting SNF placement. ?? #Abdominal pain Likely mild constipation. Will schedule daily Miralax. Will also check urinalysis. #Fatigue #Confusion Pt reports decreased energy for approx 1 month. Denies confusion but daughter reports she has been slower to respond and given some inappropriate answers during this time. Poor appetite and lower PO intake. Has been experiencing episodes of legs giving out during this time, discussed below. Denies fever/chills, N/V/C/D, dysuria, sore throat, flank pain, dysphagia, choking, vision changes. Recently admitted to [facility] 07/31-08/04 for falls and STEFANO. Rx'd course of Augmentin but no infectious source found per PCP note and daughter. Of note, switched from Risperdal 2mg daily to Haldol 5mg qhs on 07/01/21 due to worsened diabetes control. Daughter does feel pt's increased fatigue/sedation startedaround that time. Told to switch back to Risperdal at telehealth visit w/ Psych 08/07. Last Haldol dose 08/06. A&O to person, place at BL due to suspected Alzheimer's dementia; same today. In ED, WBC 12.4, VSS. Pt is alert and responding appropriately, A&O to self, place but not time, appearsat BL. No meningismus. UA noninfectious, CXR clear, no wounds, BC NGTD. BUN elevated 40, less likely as sole cause of encephalopathy. Patient is not somnolent since admission and mental status seems to be at baseline. -ddx includes medication side effect vs infection vs delirium 2/2 recent hospital admission; favor medication side effect -continue Ripserdal 2 mg qhs . #Falls #Neuropathy Pt has known diabetic neuropathy, worse RLE >LLE, LE >UE. During the past month, reports spells of lightheadedness/dizziness and legs giving out causing her to fall or slump to the floor. Hasoccurred with rising and micturation. Denies syncope/LOC, traumatic fall, head strike, bladder/bowel incontinence, saddle anesthesia, back pain. XR lumbar w/ DDD 06/11. TTE 07/2021 at OSH reported in c ardiology note to show EF 60-65%, G1DD, PASP 35mmHg. Previously rx'd lisinopril 10mg, HCTZ 25mg, amlo 5mg, hydral 25mg tid; Cards changed to just amlodipine 10mg daily on 08/05. BP 140-150s/60s in ED.Exam with sensation intact in all extremities, 5/5 strength; pt declined standing/walking but per ED report and documented exam, no ataxia. Cogwheel rigidity of neck ROM but not extremities. Did require straight cath in ED but pt reports she felt uncomfortable going , denies retention/decreased UOP at home. CT lumbar spine negative. Orthostatic vitals mildly positive, though patient having adequate PO intake. -continuing telemetry -Continue lyrica today at 150 mg qhs -continue capsaicin cream -PT/OT ?? #CKD #Urinary retention Believed 2/2 hypertension, diabetes. BL unclear, but ~1.4-1.5. Creat peak 3.9 during recent admit, now 2.36. Likely still recovering from prior STEFANO, suspected to be pre-renal. BUN/creat ratio wnl butmay have obstructive component now. UA +gluc, protein, hyaline casts. Good UOP response to fluids in ED but required straight cath. Denies decreased UOP, bladder/bowel incontinence, saddle anesthesia. -1L IVF in ED, CTM -bladder scan on arrival to floor w/ 320cc, straight cath'd0 -strict I&O, avoid nephrotoxins ?? #T2DM Previously on Jardiance, Trulicity, which were dc'd iso STEFANO. Insulin regimen changed from 55U Lantus nightly to 15U lantus bid for hypoglycemia to 70s. A1c 8.0 08/13. -Lantus 16U qhs, 5U Lispro TIDAC, SSI while inpatient -consistent carb diet ?? #Schizophrenia Baseline +AH but denies on exam. Managed on Risperidone 2mg daily prior to switch to Haldol 5mg daily for concerns of worsening diabetic control. As above, appears to have had side effects from Haldol, so Psychiatry switched back to Risperidone 2mg 08/07. -last haldol 08/06 -restarted risperidol on 08/11. No signs of sedation. ?? #Hypertension #Hyperlipidemia BP 140-150s/60s in ED. Previously rx'd lisinopril 10mg, HCTZ 25mg, amlo 5mg, hydral 25mg tid; Cardschanged to just amlodipine 10mg daily on 08/05. TTE 07/2021 w/ EF 60-65%, G1DD, PASP 35. -atorva 40 - holding amlo 10mg given c/f orthostasis as above but can restart once ortho vitals obtained ?? #Anemia, normocytic BL Hgb 10 iso CKD, 9.7 on admission. Tsat 25, TIBC 231, B12 684, folate >20 01/2021. No s/o bleeding. ?? Code Status: Full Code Diet: Adult Diet Regular, Restricted; Consistent Carbohydrate; Renal DVT Prophylaxis: SQH Access: PIV Dispo: SNF pending placement Kenny Dixon MD Cosigned by Tati Duvall MD at 08/13/2021 2:45 PM RAIL SPECIALIST SPECIALIST SPECIALIST Associated attestation - Tati Duvall MD - 08/13/2021 2:45 PM RAIL SPECIALIST I have seen and examined the patient on 08/13/21. I agree with the findings and plan of care as discussed with the resident/fellow.. * Alla Glasgow, PT - 08/13/2021 8:37 AM CST Physical Therapy Progress Note NOTE: This is a summary note of the north components of the treatment session. For full details, review chart for all flowsheets documented on by this physical therapy clinician on this date. Vital signs documented in vital signs flowsheet. Care plan progress documented in Care Plan Activity. For questions, please review the treatment team and contact the PT or BINDER FIXER currently assigned to this patient. If a physical therapy clinician is not assigned to this patient, please call [phone]. 08/13/21 3416 PT Last Visit Session Type Treatment PT Received On 08/13/21 Safe Environment Arm Band Checked;Call Light within Reach;Notified RN;Chair Alarm placed and activated;Patient found sitting in Chair;Overbed Table within Reach (In bed with all needs met after session.) Subjective Agreeable to Therapy Subjective Comment Pt sitting in the chair upon therapist arrival in NAD. Pt agreeable to treatmentsession. Family/Caregiver Present No Precautions Precautions Fall risk Precaution Comments Therapist PPE: gloves, surgical mask Activity Tolerance Activity Tolerance Comments Yaneth: Somewhat hard Pain Assessment Pain Assessment No/denies pain Cognition Orientation Oriented to person;Oriented to place Balance Balance Yes Static Sitting Balance Static Sitting-Balance Support Feet supported;No upper extremity supported Static Sitting-Sitting Surface Chair Static Sitting-Level of Assistance Independent Dynamic Sitting Balance Dynamic Sitting-Balance Support Feet supported;No upper extremity supported Dynamic Sitting-Balance Lateral lean;Forward lean;Reaching for objects Dynamic Sitting-Sitting Surface Chair Dynamic Sitting-Level of Assistance Distant supervision Dynamic Sitting-Comments For safety Static Standing Balance Static Standing-Balance Support No upper extremity supported Static Standing-Standing Surface Floor Static Standing-Level of Assistance Close supervision Static Standing-Comment/# of Minutes For safety Dynamic Standing Balance Dynamic Standing-Balance Support No upper extremity supported Dynamic Standing-Balance Lateral lean;Forward lean;Reaching for objects Dynamic Standing-Standing Surface Floor Dynamic Standing-Level of Assistance Contact guard Dynamic Standing-Comments To ensure safety and balance Bed Mobility Bed Mobility No (In chair upon arrival) Transfers Transfer Yes (Gait belt donned for all mobility) Transfer 1 Transfer From 1 Sit Transfer Type 1 To and from Transfer to 1 Stand Technique 1 Sit to stand;Stand to sit Transfer Device 1 No device Transfer Level of Assistance 1 Standby Assist Trials/Comments 1 For safety Ambulation Functional Ambulation Category 2 Ambulation Yes Ambulation 1 Distance (ft) 1 35 Surface 1 Level tile Device 1 No device Assistance 1 Contact Guard Assist Gait: Requires assist with 1 Maintaining balance Gait: Requires verbal cues to 1 Utilize appropriate gait sequencing;Improve upright posture;Increase step length Quality of Gait 1 Decreased lanny, decreased step length, decreased step height Ambulation Comments 1 Pt ambulated 35' x 2 with seated rest break in between. Other Comments Other PT Comments The patient would benefit from continuing with current POC to provide highest level of function with all mobility Basic Mobility - 6 Click How much difficulty does the patient have: Turning over in bed 4 How much difficulty does the patient currently have: Sitting down and standing up from a chair witharms? 3 How much difficulty does the patient have: Moving from lying on back to sitting on the side of the bed? 3 How much difficulty does the patient have: Moving to and from a bed to a chair including wheelchair? 3 How much help does the patient currently need: Walk in hospital room? 3 How much help from another person does the patient currently need: Climbing 3-5 steps with a railing? 3 Total 6 Click Score (range 6-24) 19 Score Interpretation 42.48 Assessment Prognosis Good Problem List Gait deviations;Decreased strength;Decreased endurance;Impaired balance;Decreased mobility;Decreased cognition Plan Plan Continue with current plan;If this is the last note, consider this the discharge summary Recommendation/Plan PT Recommendation/Plan Care Home Facility PT Frequency 2-3x/wk Treatment/Interventions Balance Training;Bed mobility;Endurance training;Functional activity;Functional transfer training;Gait training;Neuromuscular re-education;Therapeutic activity;Strengthening;Transfer training;Therapeutic exercise Progress Progressing toward goals PT - Next Appointment 08/15/21 Multi-Disciplinary Problems (from Physical Therapy) Active Problems Problem: Mobility Start Date: 08/08/21 Goal Start Date Expected End Date End Date LTG - Patient will demonstrate functional mobility with the following level of assist: 08/08/21 09/05/21 -- Goal Details: Modified independent Goal Start Date Expected End Date End Date STG - Patient will ambulate 08/08/21 08/22/21 -- Goal Details: 150 feet, AAD, SBA Problem: Transfers Start Date: 08/08/21 Goal Start Date Expected End Date End Date STG - Patient to transfer to and from sit to supine 08/08/21 08/22/21 -- Goal Details: Modified independent Goal Start Date Expected End Date End Date STG - Patient will transfer sit to and from stand 08/08/21 08/22/21 -- Goal Details: Modified independent SPECIALIST * Kenny Dixon MD - 08/12/2021 9:26 AM CST History and Physical Division of Medical Education CC: Falls Subjective The patient is a 70 y.o. female with a history of dementia,??schizophrenia, DM, HTN, HLD and CKD who p/w weakness, fatigue and confusion. NAEON. This AM, states that neuropathic pain in legs has improved. Denies chest pain, shortness of breath,abdominal pain, dysuria. Past Medical History: Diagnosis Date ??? Arthritis [...] ??? amLODIPine (NORVASC) 10 mg tablet Take 1 tablet (10 mg total) by mouth daily 30 tablet 6 08/07/2021 at Unknown time ??? amoxicillin-clavulanate (AUGMENTIN) 875-125 mg per tablet Take 1 tablet by mouth Take 1 tablet q 12 hours 08/07/2021 at Unknown time ??? atorvastatin (LIPITOR) 40 mg tablet Take 1 tablet (40 mg total) by mouth daily 90 tablet 3 08/07/2021 at Unknown time ??? BD Arlyn 2nd Gen Pen Needle 32 gauge x 5/32 needle USE TO INJECT BASAGLAR EVERY NIGHT AT BEDTIME 08/07/2021 at Unknown time ??? blood pressure monitor kit Check BP as instructed 1 kit 0 Unknown at Unknown time ??? conner.stocking,thigh,reg,med misc Wear as much as possible 2 each 1 08/07/2021 at Unknown time ??? famotidine (PEPCID) 40 mg tablet Take 1 tablet (40 mg total) by mouth daily 90 tablet 3 Unknownat Unknown time ??? glucose 4 gram chewable tablet Take 4 tablets (16 g total) by mouth as needed for low blood sugar (less than 70) and let Dr. Corcoran know! 50 tablet 0 Unknown at Unknown time ??? haloperidoL (HALDOL) 5 mg tablet Take 1 tablet (5 mg total) by mouth nightly 30 tablet 11 Past Week at Unknown time ??? hydroCHLOROthiazide (HYDRODIURIL) 25 mg tablet Take 1 tablet (25 mg total) by mouth daily 90 tablet 1 Past Week at Unknown time ??? insulin glargine (LANTUS) 100 unit/mL (3 mL) pen for injection Inject 55 Units under the skin nightly (Patient taking differently: Inject 55 Units under the skin nightly 15 units a.m 15 p.m.) 50 mL 1 08/07/2021 at Unknown time ??? lancets [facility] Check blood sugar up to 3 times a day 100 each 3 08/07/2021 at Unknown time ??? lidocaine (LIDODERM) 5 % Place 1 patch on the skin daily Apply to painful area 12 hours per day, remove for 12 hours. 90 patch 1 Unknown at Unknown time ??? miscellaneous medical supply (Blood Pressure Cuff) [facility] Use to check blood pressure daily 1 each 1 Unknown at Unknown time ??? multivitamin with minerals tablet Take 1 tablet by mouth daily 08/07/2021 at Unknown time ??? pisatlzx-arnkwrjci-tjiIOHLYiuawy (MAXITROL) 3.5mg/mL-10,000 unit/mL-0.1 % ophthalmic suspensionUnknown at Unknown time ??? omeprazole (PriLOSEC) 20 mg capsule Take 1 capsule (20 mg total) by mouth daily 90 capsule 0 Unknown at Unknown time ??? OneTouch Verio test strips strip TEST 3 TO 4 TIMES DAILY 400 each 1 08/07/2021 at Unknown time ??? pregabalin (LYRICA) 150 mg capsule TAKE 1 CAPSULE(150 MG) BY MOUTH EVERY NIGHT 30 capsule 2 08/07/2021 at Unknown time ??? risperiDONE (RisperDAL) 2 mg tablet Take 1 tablet (2 mg total) by mouth nightly 30 tablet 11 More than a month at Unknown time ??? syringe with needle, insulin (INSULIN SYRINGE-NEEDLE U-100 [facility] 3 times a day 08/07/2021 at Unknown time No Known Allergies Social History Tobacco Use ??? Smoking status: Never Smoker ??? Smokeless tobacco: Never Used Substance Use Topics ??? Alcohol use: Not Currently Family History Problem Relation Age of Onset ??? Stomach cancer Father Review of Systems All other systems were reviewed and negative except as per HPI . Objective Vitals: 24hr Min/Max: Temp Min: 36.5 ??C (97.7 ??F) Max: 37 ??C (98.6 ??F) Pulse Min: 68 Max: 77 BP Min: 117/46 Max: 136/55 Resp Min: 18 Max: 19 SpO2 Min: 98 % Max: 98 % Most Recent Vitals: Vitals: 08/12/21 0525 BP: 136/55 Pulse: 77 Resp: 18 Temp: 36.5 ??C (97.7 ??F) SpO2: 98% Intake/Output Summary (Last 24 hours) at 08/12/2021 0929 Last data filed at 08/12/2021 0645 Gross per 24 hour Intake 500 ml Output 550 ml Net -50 ml Physical Exam: General: NAD HEENT: PERRL, EOMI, eyes no-icteric, non-injected. MMM. OP clear. Neck: no cervical LAD, no meningismus Lungs: CTAB, no wheezes, rales, or rhonchi CV: RRR, normal S1 and S2, no m/g/r, no JVD Abdomen: soft, non-tender, non-distended, normoactive bowel sounds. : deferred Extremities: no peripheral edema, clubbing, cyanosis Skin: no rashes, bruising. Neuro: AO to person, place, and situation. 5/5 strength in all extremities. Psych: euthymic, flat affect Lab/Radiology/Diagnostic Review: Recent Results (from the past 24 hour(s)) POCT glucose Collection Time: 08/11/21 11:30 AM Result Value Ref Range Glucose, POC 143 70 - 199 mg/dL POCT glucose Collection Time: 08/11/21 5:11 PM Result Value Ref Range Glucose, POC 198 70 - 199 mg/dL POCT glucose Collection Time: 08/11/21 8:34 PM Result Value Ref Range Glucose, POC 122 70 - 199 mg/dL POCT glucose Collection Time: 08/12/21 7:41 AM Result Value Ref Range Glucose, POC 211 (H) 70 - 199 mg/dL Assessment/Plan 70 y.o.??F with PMH of??dementia,??schizophrenia, DM, HTN, HLD and CKD who p/w weakness, fatigue and confusion. Awaiting SNF placement. ?? #Fatigue #Confusion Pt reports decreased energy for approx 1 month. Denies confusion but daughter reports she has been slower to respond and given some inappropriate answers during this time. Poor appetite and lower PO intake. Has been experiencing episodes of legs giving out during this time, discussed below. Denies fever/chills, N/V/C/D, dysuria, sore throat, flank pain, dysphagia, choking, vision changes. Recently admitted to [facility] 07/31-08/04 for falls and STFEANO. Rx'd course of Augmentin but no infectious source found per PCP note and daughter. Of note, switched from Risperdal 2mg daily to Haldol 5mg qhs on 07/01/21 due to worsened diabetes control. Daughter does feel pt's increased fatigue/sedation startedaround that time. Told to switch back to Risperdal at telehealth visit w/ Psych 08/07. Last Haldol dose 08/06. A&O to person, place at [facility] due to suspected Alzheimer's dementia; same today. In ED, WBC 12.4, VSS. Pt is alert and responding appropriately, A&O to self, place but not time, appearsat BL. No meningismus. UA noninfectious, CXR clear, no wounds, BC NGTD. BUN elevated 40, less likely as sole cause of encephalopathy. Patient is not somnolent since admission and mental status seems to be at baseline. -ddx includes medication side effect vs infection vs delirium 2/2 recent hospital admission; favor medication side effect -restarting Ripserdal 2 mg qhs today. #Falls #Neuropathy Pt has known diabetic neuropathy, worse RLE >LLE, LE >UE. During the past month, reports spells of lightheadedness/dizziness and legs giving out causing her to fall or slump to the floor. Hasoccurred with rising and micturation. Denies syncope/LOC, traumatic fall, head strike, bladder/bowel incontinence, saddle anesthesia, back pain. XR lumbar w/ DDD 06/11. TTE 07/2021 at OSH reported in c ardiology note to show EF 60-65%, G1DD, PASP 35mmHg. Previously rx'd lisinopril 10mg, HCTZ 25mg, amlo 5mg, hydral 25mg tid; Cards changed to just amlodipine 10mg daily on 08/05. BP 140-150s/60s in ED.Exam with sensation intact in all extremities, 5/5 strength; pt declined standing/walking but per ED report and documented exam, no ataxia. Cogwheel rigidity of neck ROM but not extremities. Did require straight cath in ED but pt reports she felt uncomfortable going , denies retention/decreased UOP at home. CT lumbar spine negative. Orthostatic vitals mildly positive, though patient having adequate PO intake. -continuing telemetry -Continue lyrica today at 150 mg qhs -continue capsaicin cream -PT/OT ?? #CKD #Urinary retention Believed 2/2 hypertension, diabetes. BL unclear, but ~1.4-1.5. Creat peak 3.9 during recent admit, now 2.36. Likely still recovering from prior STEFANO, suspected to be pre-renal. BUN/creat ratio wnl butmay have obstructive component now. UA +gluc, protein, hyaline casts. Good UOP response to fluids in ED but required straight cath. Denies decreased UOP, bladder/bowel incontinence, saddle anesthesia. -1L IVF in ED, CTM -bladder scan on arrival to floor w/ 320cc, straight cath'd0 -strict I&O, avoid nephrotoxins ?? #T2DM Previously on Jardiance, Trulicity, which were dc'd iso STEFANO. Insulin regimen changed from 55U Lantus nightly to 15U lantus bid for hypoglycemia to 70s. A1c 8.0 08/13. -Lantus 16U qhs, 5U Lispro TIDAC, SSI while inpatient -consistent carb diet ?? #Schizophrenia Baseline +AH but denies on exam. Managed on Risperidone 2mg daily prior to switch to Haldol 5mg daily for concerns of worsening diabetic control. As above, appears to have had side effects from Haldol, so Psychiatry switched back to Risperidone 2mg 08/07. -last haldol 08/06 -restarted risperidol on 08/11. No signs of sedation. ?? #Hypertension #Hyperlipidemia BP 140-150s/60s in ED. Previously rx'd lisinopril 10mg, HCTZ 25mg, amlo 5mg, hydral 25mg tid; Cardschanged to just amlodipine 10mg daily on 08/05. TTE 07/2021 w/ EF 60-65%, G1DD, PASP 35. -atorva 40 - holding amlo 10mg given c/f orthostasis as above but can restart once ortho vitals obtained ?? #Anemia, normocytic BL Hgb 10 iso CKD, 9.7 on admission. Tsat 25, TIBC 231, B12 684, folate >20 01/2021. No s/o bleeding. ?? Code Status: Full Code Diet: Adult Diet Regular, Restricted; Consistent Carbohydrate; Renal DVT Prophylaxis: SQH Access: PIV Dispo: SNF pending placement Kenny Dixon MD Cosigned by Tati Duvall MD at 08/13/2021 2:43 PM RAIL SPECIALIST SPECIALIST SPECIALIST Associated attestation - Tati Duvall MD - 08/13/2021 2:43 PM RAIL SPECIALIST I have seen and examined the patient on 08/12/2021. I agree with the findings and plan of care as discussed with the resident/fellow.. * Kenny Dixon MD - 08/11/2021 8:37 AM CST History and Physical Division of Medical Education CC: Falls Subjective The patient is a 70 y.o. female with a history of dementia,??schizophrenia, DM, HTN, HLD and CKD who p/w weakness, fatigue and confusion. Nutrition added glucerna shakes yesterday. Remains stable, awaiting placement. This AM, continues to complain of numbness/tingling in bilateral feet. Otherwise feels well. Past Medical History: Diagnosis Date ??? Arthritis [...] ??? amLODIPine (NORVASC) 10 mg tablet Take 1 tablet (10 mg total) by mouth daily 30 tablet 6 08/07/2021 at Unknown time ??? amoxicillin-clavulanate (AUGMENTIN) 875-125 mg per tablet Take 1 tablet by mouth Take 1 tablet q 12 hours 08/07/2021 at Unknown time ??? atorvastatin (LIPITOR) 40 mg tablet Take 1 tablet (40 mg total) by mouth daily 90 tablet 3 08/07/2021 at Unknown time ??? BD Arlyn 2nd Gen Pen Needle 32 gauge x needle USE TO INJECT BASAGLAR EVERY NIGHT AT BEDTIME 08/07/2021 at Unknown time ??? blood pressure monitor kit Check BP as instructed 1 kit 0 Unknown at Unknown time ??? conner.stocking,thigh,reg,med misc Wear as much as possible 2 each 1 08/07/2021 at Unknown time ??? famotidine (PEPCID) 40 mg tablet Take 1 tablet (40 mg total) by mouth daily 90 tablet 3 Unknownat Unknown time ??? glucose 4 gram chewable tablet Take 4 tablets (16 g total) by mouth as needed for low blood sugar (less than 70) and let Dr. Corcoran know! 50 tablet 0 Unknown at Unknown time ??? haloperidoL (HALDOL) 5 mg tablet Take 1 tablet (5 mg total) by mouth nightly 30 tablet 11 Past Week at Unknown time ??? hydroCHLOROthiazide (HYDRODIURIL) 25 mg tablet Take 1 tablet (25 mg total) by mouth daily 90 tablet 1 Past Week at Unknown time ??? insulin glargine (LANTUS) 100 unit/mL (3 mL) pen for injection Inject 55 Units under the skin nightly (Patient taking differently: Inject 55 Units under the skin nightly 15 units a.m 15 p.m.) 50 mL 1 08/07/2021 at Unknown time ??? lancets [facility] Check blood sugar up to 3 times a day 100 each 3 08/07/2021 at Unknown time ??? lidocaine (LIDODERM) 5 % Place 1 patch on the skin daily Apply to painful area 12 hours per day, remove for 12 hours. 90 patch 1 Unknown at Unknown time ??? miscellaneous medical supply (Blood Pressure Cuff) [facility] Use to check blood pressure daily 1 each 1 Unknown at Unknown time ??? multivitamin with minerals tablet Take 1 tablet by mouth daily 08/07/2021 at Unknown time ??? jylycyxt-duhkshtrx-nwrWKLDKsdzgk (MAXITROL) 3.5mg/mL-10,000 unit/mL-0.1 % ophthalmic suspensionUnknown at Unknown time ??? omeprazole (PriLOSEC) 20 mg capsule Take 1 capsule (20 mg total) by mouth daily 90 capsule 0 Unknown at Unknown time ??? OneTouch Verio test strips strip TEST 3 TO 4 TIMES DAILY 400 each 1 08/07/2021 at Unknown time ??? pregabalin (LYRICA) 150 mg capsule TAKE 1 CAPSULE(150 MG) BY MOUTH EVERY NIGHT 30 capsule 2 08/07/2021 at Unknown time ??? risperiDONE (RisperDAL) 2 mg tablet Take 1 tablet (2 mg total) by mouth nightly 30 tablet 11 More than a month at Unknown time ??? syringe with needle, insulin (INSULIN SYRINGE-NEEDLE U-100 [facility]) 3 times a day 08/07/2021 at Unknown time No Known Allergies Social History Tobacco Use ??? Smoking status: Never Smoker ??? Smokeless tobacco: Never Used Substance Use Topics ??? Alcohol use: Not Currently Family History Problem Relation Age of Onset ??? Stomach cancer Father Review of Systems All other systems were reviewed and negative except as per HPI . Objective Vitals: 24hr Min/Max: Temp Min: 36.5 ??C (97.7 ??F) Max: 36.7 ??C (98.1 ??F) Pulse Min: 69 Max: 72 BP Min: 119/56 Max: 144/63 Resp Min: 18 Max: 18 SpO2 Min: 97 % Max: 100 % Most Recent Vitals: Vitals: 08/11/21 0550 BP: 119/56 Pulse: 69 Resp: 18 Temp: 36.6 ??C (97.9 ??F) SpO2: 97% Intake/Output Summary (Last 24 hours) at 08/11/2021 1024 Last data filed at 08/11/2021 0600 Gross per 24 hour Intake 128 ml Output 750 ml Net -622 ml Physical Exam: General: NAD HEENT: PERRL, EOMI, eyes no-icteric, non-injected. MMM. OP clear. Neck: no cervical LAD, no meningismus Lungs: CTAB, no wheezes, rales, or rhonchi CV: RRR, normal S1 and S2, no m/g/r, no JVD Abdomen: soft, non-tender, non-distended, normoactive bowel sounds. : deferred Extremities: no peripheral edema, clubbing, cyanosis Skin: no rashes, bruising. Neuro: AO to person, place, and situation. 5/5 strength in all extremities. Psych: euthymic, flat affect Lab/Radiology/Diagnostic Review: Recent Results (from the past 24 hour(s)) POCT glucose Collection Time: 08/10/21 11:24 AM Result Value Ref Range Glucose, POC 141 70 - 199 mg/dL POCT glucose Collection Time: 08/10/21 4:55 PM Result Value Ref Range Glucose, POC 128 70 - 199 mg/dL POCT glucose Collection Time: 08/10/21 9:45 PM Result Value Ref Range Glucose, POC 90 70 - 199 mg/dL POCT glucose Collection Time: 08/10/21 10:20 PM Result Value Ref Range Glucose, POC 109 70 - 199 mg/dL POCT glucose Collection Time: 08/11/21 7:46 AM Result Value Ref Range Glucose, POC 138 70 - 199 mg/dL Assessment/Plan 70 y.o.??F with PMH of??dementia,??schizophrenia, DM, HTN, HLD and CKD who p/w weakness, fatigue and confusion. Awaiting SNF placement. ?? #Fatigue #Confusion Pt reports decreased energy for approx 1 month. Denies confusion but daughter reports she has been slower to respond and given some inappropriate answers during this time. Poor appetite and lower PO intake. Has been experiencing episodes of legs giving out during this time, discussed below. Denies fever/chills, N/V/C/D, dysuria, sore throat, flank pain, dysphagia, choking, vision changes. Recently admitted to [facility] 07/31-08/04 for falls and STEFANO. Rx'd course of Augmentin but no infectious source found per PCP note and daughter. Of note, switched from Risperdal 2mg daily to Haldol 5mg qhs on 07/01/21 due to worsened diabetes control. Daughter does feel pt's increased fatigue/sedation startedaround that time. Told to switch back to Risperdal at telehealth visit w/ Psych 08/07. Last Haldol dose 08/06. A&O to person, place at due to suspected Alzheimer's dementia; same today. In ED, WBC 12.4, VSS. Pt is alert and responding appropriately, A&O to self, place but not time, appearsat BL. No meningismus. UA noninfectious, CXR clear, no wounds, BC NGTD. BUN elevated 40, less likely as sole cause of encephalopathy. Patient is not somnolent since admission and mental status seems to be at baseline. -ddx includes medication side effect vs infection vs delirium 2/2 recent hospital admission; favor medication side effect -restarting Ripserdal 2 mg qhs today. #Falls #Neuropathy Pt has known diabetic neuropathy, worse RLE >LLE, LE >UE. During the past month, reports spells of lightheadedness/dizziness and legs giving out causing her to fall or slump to the floor. Hasoccurred with rising and micturation. Denies syncope/LOC, traumatic fall, head strike, bladder/bowel incontinence, saddle anesthesia, back pain. XR lumbar w/ DDD 06/11. TTE 07/2021 at OSH reported in c ardiology note to show EF 60-65%, G1DD, PASP 35mmHg. Previously rx'd lisinopril 10mg, HCTZ 25mg, amlo 5mg, hydral 25mg tid; Cards changed to just amlodipine 10mg daily on 08/05. BP 140-150s/60s in ED.Exam with sensation intact in all extremities, 5/5 strength; pt declined standing/walking but per ED report and documented exam, no ataxia. Cogwheel rigidity of neck ROM but not extremities. Did require straight cath in ED but pt reports she felt uncomfortable going , denies retention/decreased UOP at home. CT lumbar spine negative. Orthostatic vitals mildly positive, though patient having adequate PO intake. -continuing telemetry -Continue lyrica today at 150 mg qhs -starting capsaicin cream -PT/OT ?? #CKD #Urinary retention Believed 2/2 hypertension, diabetes. BL unclear, but ~1.4-1.5. Creat peak 3.9 during recent admit, now 2.36. Likely still recovering from prior STEFANO, suspected to be pre-renal. BUN/creat ratio wnl butmay have obstructive component now. UA +gluc, protein, hyaline casts. Good UOP response to fluids in ED but required straight cath. Denies decreased UOP, bladder/bowel incontinence, saddle anesthesia. -1L IVF in ED, CTM -bladder scan on arrival to floor w/ 320cc, straight cath'd0 -consider renal US -strict I&O, avoid nephrotoxins ?? #T2DM Previously on Jardiance, Trulicity, which were dc'd iso STEFANO. Insulin regimen changed from 55U Lantus nightly to 15U lantus bid for hypoglycemia to 70s. A1c 8.0 08/13. -Lantus 16U qhs, 5U Lispro TIDAC, SSI while inpatient -consistent carb diet ?? #Schizophrenia Baseline +AH but denies on exam. Managed on Risperidone 2mg daily prior to switch to Haldol 5mg daily for concerns of worsening diabetic control. As above, appears to have had side effects from Haldol, so Psychiatry switched back to Risperidone 2mg 08/07. Has not yet restarted. -last haldol 08/06, holding sedating meds; if mental status remains stable, can consider restarting ?? #Hypertension #Hyperlipidemia BP 140-150s/60s in ED. Previously rx'd lisinopril 10mg, HCTZ 25mg, amlo 5mg, hydral 25mg tid; Cardschanged to just amlodipine 10mg daily on 08/05. TTE 07/2021 w/ EF 60-65%, G1DD, PASP 35. -atorva 40 - holding amlo 10mg given c/f orthostasis as above but can restart once ortho vitals obtained ?? #Anemia, normocytic BL Hgb 10 iso CKD, 9.7 on admission. Tsat 25, TIBC 231, B12 684, folate >20 01/2021. No s/o bleeding. ?? Code Status: Full Code Diet: Adult Diet Regular, Restricted; Consistent Carbohydrate; Renal DVT Prophylaxis: SQH Access: PIV Dispo: SNF pending placement Kenny Dixon MD Cosigned by Tati Duvall MD at 08/13/2021 2:44 PM RAIL SPECIALIST SPECIALIST SPECIALIST Associated attestation - Tati Duvall MD - 08/13/2021 2:44 PM RAIL SPECIALIST I have seen and examined the patient on 08/11/21. I agree with the findings and plan of care as discussed with the resident/fellow.. * Robert Owens MD - 08/10/2021 8:21 AM CST History and Physical Division of Medical Education CC: Falls Subjective The patient is a 70 y.o. female with a history of dementia,??schizophrenia, DM, HTN, HLD and CKD who p/w weakness, fatigue and confusion. Remains stable, awaiting placement. Continues to have some neuropathy. Plan: Increase Lyrica to 150 qhs Past Medical History: Diagnosis Date ??? Arthritis [...] ??? amLODIPine (NORVASC) 10 mg tablet Take 1 tablet (10 mg total) by mouth daily 30 tablet 6 08/07/2021 at Unknown time ??? amoxicillin-clavulanate (AUGMENTIN) 875-125 mg per tablet Take 1 tablet by mouth Take 1 tablet q 12 hours 08/07/2021 at Unknown time ??? atorvastatin (LIPITOR) 40 mg tablet Take 1 tablet (40 mg total) by mouth daily 90 tablet 3 08/07/2021 at Unknown time ??? BD Arlyn 2nd Gen Pen Needle 32 gauge x 5/32 needle USE TO INJECT BASAGLAR EVERY NIGHT AT BEDTIME 08/07/2021 at Unknown time ??? blood pressure monitor kit Check BP as instructed 1 kit 0 Unknown at Unknown time ??? conner.stocking,thigh,reg,med misc Wear as much as possible 2 each 1 08/07/2021 at Unknown time ??? famotidine (PEPCID) 40 mg tablet Take 1 tablet (40 mg total) by mouth daily 90 tablet 3 Unknownat Unknown time ??? glucose 4 gram chewable tablet Take 4 tablets (16 g total) by mouth as needed for low blood sugar (less than 70) and let Dr. Corcoran know! 50 tablet 0 Unknown at Unknown time ??? haloperidoL (HALDOL) 5 mg tablet Take 1 tablet (5 mg total) by mouth nightly 30 tablet 11 Past Week at Unknown time ??? hydroCHLOROthiazide (HYDRODIURIL) 25 mg tablet Take 1 tablet (25 mg total) by mouth daily 90 tablet 1 Past Week at Unknown time ??? insulin glargine (LANTUS) 100 unit/mL (3 mL) pen for injection Inject 55 Units under the skin nightly (Patient taking differently: Inject 55 Units under the skin nightly 15 units a.m 15 p.m.) 50 mL 1 08/07/2021 at Unknown time ??? [facility] sugar up to 3 times a day 100 each 3 08/07/2021 at Unknown time ??? lidocaine (LIDODERM) 5 % Place 1 patch on the skin daily Apply to painful area 12 hours per day, remove for 12 hours. 90 patch 1 Unknown at Unknown time ??? miscellaneous medical supply (Blood Pressure Cuff) [facility] Use to check blood pressure daily 1 each 1 Unknown at Unknown time ??? multivitamin with minerals tablet Take 1 tablet by mouth daily 08/07/2021 at Unknown time ??? cxpmgdlq-qbiflvyzp-dhiEGROCsutxy (MAXITROL) 3.5mg/mL-10,000 unit/mL-0.1 % ophthalmic suspensionUnknown at Unknown time ??? omeprazole (PriLOSEC) 20 mg capsule Take 1 capsule (20 mg total) by mouth daily 90 capsule 0 Unknown at Unknown time ??? OneTouch Verio test strips strip TEST 3 TO 4 TIMES DAILY 400 each 1 08/07/2021 at Unknown time ??? pregabalin (LYRICA) 150 mg capsule TAKE 1 CAPSULE(150 MG) BY MOUTH EVERY NIGHT 30 capsule 2 08/07/2021 at Unknown time ??? risperiDONE (RisperDAL) 2 mg tablet Take 1 tablet (2 mg total) by mouth nightly 30 tablet 11 More than a month at Unknown time ??? syringe with needle, insulin (INSULIN SYRINGE-NEEDLE U-100 [facility] 3 times a day 08/07/2021 at Unknown time No Known Allergies Social History Tobacco Use ??? Smoking status: Never Smoker ??? Smokeless tobacco: Never Used Substance Use Topics ??? Alcohol use: Not Currently Family History Problem Relation Age of Onset ??? Stomach cancer Father Review of Systems All other systems were reviewed and negative except as per HPI . Objective Vitals: 24hr Min/Max: Temp Min: 36.5 ??C (97.7 ??F) Max: 36.6 ??C (97.9 ??F) Pulse Min: 66 Max: 74 BP Min: 119/55 Max: 149/59 Resp Min: 18 Max: 18 SpO2 Min: 90 % Max: 100 % Most Recent Vitals: Vitals: 08/10/21 0515 BP: 119/55 Pulse: 66 Resp: 18 Temp: 36.6 ??C (97.9 ??F) SpO2: 95% Intake/Output Summary (Last 24 hours) at 08/10/2021 0821 Last data filed at 08/10/2021 0650 Gross per 24 hour Intake 480 ml Output 550 ml Net -70 ml Physical Exam: General: NAD HEENT: PERRL, EOMI, eyes no-icteric, non-injected. MMM. OP clear. Neck: no cervical LAD, no meningismus Lungs: CTAB, no wheezes, rales, or rhonchi CV: RRR, normal S1 and S2, no m/g/r, no JVD Abdomen: soft, non-tender, non-distended, normoactive bowel sounds. : deferred Extremities: no peripheral edema, clubbing, cyanosis Skin: no rashes, bruising. Neuro: AO to person, place, and situation. 5/5 strength in all extremities. Psych: euthymic, flat affect Lab/Radiology/Diagnostic Review: Recent Results (from the past 24 hour(s)) POCT glucose Collection Time: 08/09/21 11:33 AM Result Value Ref Range Glucose, POC 115 70 - 199 mg/dL POCT glucose Collection Time: 08/09/21 5:08 PM Result Value Ref Range Glucose, POC 151 70 - 199 mg/dL POCT glucose Collection Time: 08/09/21 9:07 PM Result Value Ref Range Glucose, POC 75 70 - 199 mg/dL POCT glucose Collection Time: 08/09/21 10:01 PM Result Value Ref Range Glucose, POC 124 70 - 199 mg/dL CBC with auto differential Collection Time: 08/09/21 10:02 PM Result Value Ref Range WBC 10.1 (H) 3.8 - 9.9 K/cumm Hgb 8.7 (L) 11.9 - 15.5 g/dL Hct 28.4 (L) 35.6 - 45.5 % Plt 294 150 - 400 K/cumm MPV 10.8 9.1 - 12.3 fL RBC 3.05 (L) 3.90 - 5.20 M/cumm MCV 93.1 81.3 - 96.4 fL MCH 28.5 27.1 - 33.3 pg MCHC 30.6 (L) 32.3 - 35.7 g/dL RDW CV 15.3 (H) 11.1 - 14.9 % RDW SD 52.3 (H) 35.7 - 48.1 fL NRBC abs 0.00 0.00 - 0.01 K/cumm Basic metabolic panel Collection Time: 08/09/21 10:02 PM Result Value Ref Range Sodium 143 135 - 145 mmol/L Potassium, pl 4.0 3.3 - 4.9 mmol/L Chloride 111 (H) 97 - 110 mmol/L CO2 22 22 - 32 mmol/L Anion gap 10 2 - 15 mmol/L BUN 29 (H) 8 - 25 mg/dL Creatinine 1.65 (H) 0.60 - 1.10 mg/dL Glucose 123 70 - 199 mg/dL Calcium 9.5 8.5 - 10.3 mg/dL Differential, auto Collection Time: 08/09/21 10:02 PM Result Value Ref Range Neutrophil abs 5.8 1.7 - 6.5 K/cumm Imm gran abs 0.0 0.0 - 0.1 K/cumm Lymphocyte abs 3.4 (H) 0.8 - 3.3 K/cumm Monocyte abs 0.7 0.2 - 0.8 K/cumm Eosinophil abs 0.2 0.0 - 0.5 K/cumm Basophil abs 0.0 0.0 - 0.1 K/cumm Neutrophil pct 57.3 % Imm gran pct 0.4 % Lymphocyte pct 33.4 % Monocyte pct 6.5 % Eosinophil pct 2.0 % Basophil pct 0.4 % eGFR Collection Time: 08/09/21 10:02 PM Result Value Ref Range eGFR 33 (L) 90 - 130 mL/min/1.73 m2 POCT glucose Collection Time: 08/10/21 7:40 AM Result Value Ref Range Glucose, POC 109 70 - 199 mg/dL Assessment/Plan 70 y.o.??F with PMH of??dementia,??schizophrenia, DM, HTN, HLD and CKD who p/w weakness, fatigue and confusion. ?? #Fatigue #Confusion Pt reports decreased energy for approx 1 month. Denies confusion but daughter reports she has been slower to respond and given some inappropriate answers during this time. Poor appetite and lower PO intake. Has been experiencing episodes of legs giving out during this time, discussed below. Denies fever/chills, N/V/C/D, dysuria, sore throat, flank pain, dysphagia, choking, vision changes. Recently admitted to [facility] 07/31-08/04 for falls and STEFANO. Rx'd course of Augmentin but no infectious source found per PCP note and daughter. Of note, switched from Risperdal 2mg daily to Haldol 5mg qhs on 07/01/21 due to worsened diabetes control. Daughter does feel pt's increased fatigue/sedation startedaround that time. Told to switch back to Risperdal at telehealth visit w/ Psych 08/07. Last Haldol dose 08/06. A&O to person, place at BL due to suspected Alzheimer's dementia; same today. In ED, WBC 12.4, VSS. Pt is alert and responding appropriately, A&O to self, place but not time, appearsat BL. No meningismus. UA noninfectious, CXR clear, no wounds, BC NGTD. BUN elevated 40, less likely as sole cause of encephalopathy. Patient is not somnolent since admission and mental status seems to be at baseline. -ddx includes medication side effect vs infection vs delirium 2/2 recent hospital admission; favor medication side effect -continue to hold risperdal, increasing lyrica today at 150 mg qhs (home 150 mg daily) due to neuropathy -re-start Risperdal 08/11 if stable ?? #Falls #Neuropathy Pt has known diabetic neuropathy, worse RLE >LLE, LE >UE. During the past month, reports spells of lightheadedness/dizziness and legs giving out causing her to fall or slump to the floor. Hasoccurred with rising and micturation. Denies syncope/LOC, traumatic fall, head strike, bladder/bowel incontinence, saddle anesthesia, back pain. XR lumbar w/ DDD 06/11. TTE 07/2021 at OSH reported in c ardiology note to show EF 60-65%, G1DD, PASP 35mmHg. Previously rx'd lisinopril 10mg, HCTZ 25mg, amlo 5mg, hydral 25mg tid; Cards changed to just amlodipine 10mg daily on 08/05. BP 140-150s/60s in ED.Exam with sensation intact in all extremities, 5/5 strength; pt declined standing/walking but per ED report and documented exam, no ataxia. Cogwheel rigidity of neck ROM but not extremities. Did require straight cath in ED but pt reports she felt uncomfortable going , denies retention/decreased UOP at home. CT lumbar spine negative. Orthostatic vitals mildly positive, though patient having adequate PO intake. -continuing telemetry -holding risperdal as above, restarted lyrica as above -PT/OT ?? #CKD #Urinary retention Believed 2/2 hypertension, diabetes. BL unclear, but ~1.4-1.5. Creat peak 3.9 during recent admit, now 2.36. Likely still recovering from prior STEFANO, suspected to be pre-renal. BUN/creat ratio wnl butmay have obstructive component now. UA +gluc, protein, hyaline casts. Good UOP response to fluids in ED but required straight cath. Denies decreased UOP, bladder/bowel incontinence, saddle anesthesia. -1L IVF in ED, CTM -bladder scan on arrival to floor w/ 320cc, straight cath'd0 -consider renal US -strict I&O, avoid nephrotoxins ?? #T2DM Previously on Jardiance, Trulicity, which were dc'd iso STEFANO. Insulin regimen changed from 55U Lantus nightly to 15U lantus bid for hypoglycemia to 70s. A1c 8.0 08/13. -Lantus 16U qhs, 5U Lispro TIDAC, SSI while inpatient -consistent carb diet ?? #Schizophrenia Baseline +AH but denies on exam. Managed on Risperidone 2mg daily prior to switch to Haldol 5mg daily for concerns of worsening diabetic control. As above, appears to have had side effects from Haldol, so Psychiatry switched back to Risperidone 2mg 08/07. Has not yet restarted. -last haldol 08/06, holding sedating meds; if mental status remains stable, can consider restarting ?? #Hypertension #Hyperlipidemia BP 140-150s/60s in ED. Previously rx'd lisinopril 10mg, HCTZ 25mg, amlo 5mg, hydral 25mg tid; Cardschanged to just amlodipine 10mg daily on 08/05. TTE 07/2021 w/ EF 60-65%, G1DD, PASP 35. -atorva 40 - holding amlo 10mg given c/f orthostasis as above but can restart once ortho vitals obtained ?? #Anemia, normocytic BL Hgb 10 iso CKD, 9.7 on admission. Tsat 25, TIBC 231, B12 684, folate >20 01/2021. No s/o bleeding. ?? Code Status: Full Code Diet: Adult Diet Regular, Restricted; Consistent Carbohydrate; Renal DVT Prophylaxis: SQH Access: PIV Dispo: SNF pending placement Robert Owens MD Cosigned by Tati Duvall MD at 08/13/2021 2:44 PM RAIL SPECIALIST SPECIALIST SPECIALIST Associated attestation - Tati Duvall MD - 08/13/2021 2:44 PM RAIL SPECIALIST I have seen and examined the patient on 08/10/21. I agree with the findings and plan of care as discussed with the resident/fellow.. * Kenny Dixon MD - 08/09/2021 2:03 PM CST History and Physical Division of Medical Education CC: Falls Subjective The patient is a 70 y.o. female with a history of dementia,??schizophrenia, DM, HTN, HLD and CKD who p/w weakness, fatigue and confusion. Yesterday, per discussion with daughter, family would like placement at [facility]. This AM, patient complained of neuropathic pain and tingling in bilateral feet. Denied headache, chest pain, shortness of breath, abdominal pain. Past Medical History: Diagnosis Date ??? Arthritis [...] ??? amLODIPine (NORVASC) 10 mg tablet Take 1 tablet (10 mg total) by mouth daily 30 tablet 6 08/07/2021 at Unknown time ??? amoxicillin-clavulanate (AUGMENTIN) 875-125 mg per tablet Take 1 tablet by mouth Take 1 tablet q 12 hours 08/07/2021 at Unknown time ??? atorvastatin (LIPITOR) 40 mg tablet Take 1 tablet (40 mg total) by mouth daily 90 tablet 3 08/07/2021 at Unknown time ??? BD Arlyn 2nd Gen Pen Needle 32 gauge x needle USE TO INJECT BASAGLAR EVERY NIGHT AT BEDTIME 08/07/2021 at Unknown time ??? blood pressure monitor kit Check BP as instructed 1 kit 0 Unknown at Unknown time ??? conner.stocking,thigh,reg,med misc Wear as much as possible 2 each 1 08/07/2021 at Unknown time ??? famotidine (PEPCID) 40 mg tablet Take 1 tablet (40 mg total) by mouth daily 90 tablet 3 Unknownat Unknown time ??? glucose 4 gram chewable tablet Take 4 tablets (16 g total) by mouth as needed for low blood sugar (less than 70) and let Dr. Corcoran know! 50 tablet 0 Unknown at Unknown time ??? haloperidoL (HALDOL) 5 mg tablet Take 1 tablet (5 mg total) by mouth nightly 30 tablet 11 Past Week at Unknown time ??? hydroCHLOROthiazide (HYDRODIURIL) 25 mg tablet Take 1 tablet (25 mg total) by mouth daily 90 tablet 1 Past Week at Unknown time ??? insulin glargine (LANTUS) 100 unit/mL (3 mL) pen for injection Inject 55 Units under the skin nightly (Patient taking differently: Inject 55 Units under the skin nightly 15 units a.m 15 p.m.) 50 mL 1 08/07/2021 at Unknown time ??? lancets [facility] Check blood sugar up to 3 times a day 100 each 3 08/07/2021 at Unknown time ??? lidocaine (LIDODERM) 5 % Place 1 patch on the skin daily Apply to painful area 12 hours per day, remove for 12 hours. 90 patch 1 Unknown at Unknown time ??? miscellaneous medical supply (Blood Pressure Cuff) [facility] Use to check blood pressure daily 1 each 1 Unknown at Unknown time ??? multivitamin with minerals tablet Take 1 tablet by mouth daily 08/07/2021 at Unknown time ??? kfxbuorp-dqkylszzc-tekUEQWGusppu (MAXITROL) 3.5mg/mL-10,000 unit/mL-0.1 % ophthalmic suspensionUnknown at Unknown time ??? omeprazole (PriLOSEC) 20 mg capsule Take 1 capsule (20 mg total) by mouth daily 90 capsule 0 Unknown at Unknown time ??? OneTouch Verio test strips strip TEST 3 TO 4 TIMES DAILY 400 each 1 08/07/2021 at Unknown time ??? pregabalin (LYRICA) 150 mg capsule TAKE 1 CAPSULE(150 MG) BY MOUTH EVERY NIGHT 30 capsule 2 08/07/2021 at Unknown time ??? risperiDONE (RisperDAL) 2 mg tablet Take 1 tablet (2 mg total) by mouth nightly 30 tablet 11 More than a month at Unknown time ??? syringe with needle, insulin (INSULIN SYRINGE-NEEDLE U-100 [facility] 3 times a day 08/07/2021 at Unknown time No Known Allergies Social History Tobacco Use ??? Smoking status: Never Smoker ??? Smokeless tobacco: Never Used Substance Use Topics ??? Alcohol use: Not Currently Family History Problem Relation Age of Onset ??? Stomach cancer Father Review of Systems All other systems were reviewed and negative except as per HPI . Objective Vitals: 24hr Min/Max: Temp Min: 36.5 ??C (97.7 ??F) Max: 36.6 ??C (97.9 ??F) Pulse Min: 67 Max: 76 BP Min: 135/59 Max: 146/60 Resp Min: 18 Max: 18 SpO2 Min: 90 % Max: 100 % Most Recent Vitals: Vitals: 08/09/21 1340 BP: 145/57 Pulse: 74 Resp: 18 Temp: 36.5 ??C (97.7 ??F) SpO2: 100% Intake/Output Summary (Last 24 hours) at 08/09/2021 1432 Last data filed at 08/09/2021 0540 Gross per 24 hour Intake 380 ml Output 250 ml Net 130 ml Physical Exam: General: NAD HEENT: PERRL, EOMI, eyes no-icteric, non-injected. MMM. OP clear. Neck: no cervical LAD, no meningismus Lungs: CTAB, no wheezes, rales, or rhonchi CV: RRR, normal S1 and S2, no m/g/r, no JVD Abdomen: soft, non-tender, non-distended, normoactive bowel sounds. : deferred Extremities: no peripheral edema, clubbing, cyanosis Skin: no rashes, bruising. Neuro: AO to person, place, and situation. 5/5 strength in all extremities. Psych: euthymic, flat affect Lab/Radiology/Diagnostic Review: Recent Results (from the past 24 hour(s)) POCT glucose Collection Time: 08/08/21 4:49 PM Result Value Ref Range Glucose, POC 124 70 - 199 mg/dL POCT glucose Collection Time: 08/08/21 5:02 PM Result Value Ref Range Glucose, POC 112 70 - 199 mg/dL POCT glucose Collection Time: 08/08/21 9:03 PM Result Value Ref Range Glucose, POC 159 70 - 199 mg/dL CBC with auto differential Collection Time: 08/08/21 9:14 PM Result Value Ref Range WBC 10.8 (H) 3.8 - 9.9 K/cumm Hgb 8.7 (L) 11.9 - 15.5 g/dL Hct 28.5 (L) 35.6 - 45.5 % Plt 295 150 - 400 K/cumm MPV 10.6 9.1 - 12.3 fL RBC 3.01 (L) 3.90 - 5.20 M/cumm MCV 94.7 81.3 - 96.4 fL MCH 28.9 27.1 - 33.3 pg MCHC 30.5 (L) 32.3 - 35.7 g/dL RDW CV 15.3 (H) 11.1 - 14.9 % RDW SD 53.2 (H) 35.7 - 48.1 fL NRBC abs 0.00 0.00 - 0.01 K/cumm Basic metabolic panel Collection Time: 08/08/21 9:14 PM Result Value Ref Range Sodium 143 135 - 145 mmol/L Potassium, pl 4.3 3.3 - 4.9 mmol/L Chloride 110 97 - 110 mmol/L CO2 23 22 - 32 mmol/L Anion gap 10 2 - 15 mmol/L BUN 31 (H) 8 - 25 mg/dL Creatinine 1.72 (H) 0.60 - 1.10 mg/dL Glucose 151 70 - 199 mg/dL Calcium 9.4 8.5 - 10.3 mg/dL Differential, auto Collection Time: 08/08/21 9:14 PM Result Value Ref Range Neutrophil abs 6.9 (H) 1.7 - 6.5 K/cumm Imm gran abs 0.0 0.0 - 0.1 K/cumm Lymphocyte abs 3.0 0.8 - 3.3 K/cumm Monocyte abs 0.7 0.2 - 0.8 K/cumm Eosinophil abs 0.2 0.0 - 0.5 K/cumm Basophil abs 0.0 0.0 - 0.1 K/cumm Neutrophil pct 63.2 % Imm gran pct 0.4 % Lymphocyte pct 27.6 % Monocyte pct 6.5 % Eosinophil pct 1.9 % Basophil pct 0.4 % eGFR Collection Time: 08/08/21 9:14 PM Result Value Ref Range eGFR 32 (L) 90 - 130 mL/min/1.73 m2 Drugs of Abuse Screen, Urine with Reflex Confirmation Collection Time: 08/09/21 5:41 AM Result Value Ref Range Amphetamine, ur Not [...] Not Detected CutOff 25 ng/mL Urine Creatinine 122 mg/dL POCT glucose Collection Time: 08/09/21 7:38 AM Result Value Ref Range Glucose, POC 113 70 - 199 mg/dL POCT glucose Collection Time: 08/09/21 11:33 AM Result Value Ref Range Glucose, POC 115 70 - 199 mg/dL Assessment/Plan 70 y.o.??F with PMH of??dementia,??schizophrenia, DM, HTN, HLD and CKD who p/w weakness, fatigue and confusion. ?? #Fatigue #Confusion Pt reports decreased energy for approx 1 month. Denies confusion but daughter reports she has been slower to respond and given some inappropriate answers during this time. Poor appetite and lower PO intake. Has been experiencing episodes of legs giving out during this time, discussed below. Denies fever/chills, N/V/C/D, dysuria, sore throat, flank pain, dysphagia, choking, vision changes. Recently admitted to [facility] 07/31-08/04 for falls and STEFANO. Rx'd course of Augmentin but no infectious source found per PCP note and daughter. Of note, switched from Risperdal 2mg daily to Haldol 5mg qhs on 07/01/21 due to worsened diabetes control. Daughter does feel pt's increased fatigue/sedation startedaround that time. Told to switch back to Risperdal at telehealth visit w/ Psych 08/07. Last Haldol dose 08/06. A&O to person, place at BL due to suspected Alzheimer's dementia; same today. In ED, WBC 12.4, VSS. Pt is alert and responding appropriately, A&O to self, place but not time, appearsat BL. No meningismus. UA noninfectious, CXR clear, no wounds, BC NGTD. BUN elevated 40, less likely as sole cause of encephalopathy. Patient is not somnolent since admission and mental status seems to be at baseline. -ddx includes medication side effect vs infection vs delirium 2/2 recent hospital admission; favor medication side effect -continue to hold risperdal, restarting lyrica today at 75 mg daily (home 150 mg daily) due to neuropathy ?? #Falls #Neuropathy Pt has known diabetic neuropathy, worse RLE >LLE, LE >UE. During the past month, reports spells of lightheadedness/dizziness and legs giving out causing her to fall or slump to the floor. Hasoccurred with rising and micturation. Denies syncope/LOC, traumatic fall, head strike, bladder/bowel incontinence, saddle anesthesia, back pain. XR lumbar w/ DDD 06/11. TTE 07/2021 at OSH reported in c ardiology note to show EF 60-65%, G1DD, PASP 35mmHg. Previously rx'd lisinopril 10mg, HCTZ 25mg, amlo 5mg, hydral 25mg tid; Cards changed to just amlodipine 10mg daily on 08/05. BP 140-150s/60s in ED.Exam with sensation intact in all extremities, 5/5 strength; pt declined standing/walking but per ED report and documented exam, no ataxia. Cogwheel rigidity of neck ROM but not extremities. Did require straight cath in ED but pt reports she felt uncomfortable going , denies retention/decreased UOP at home. CT lumbar spine negative. Orthostatic vitals mildly positive, though patient having adequate PO intake. -continuing telemetry -holding risperdal as above, restarting lyrica today at 75 mg daily (home 150 mg daily) due to neuropathy -PT/OT ?? #CKD #Urinary retention Believed 2/2 hypertension, diabetes. BL unclear, but ~1.4-1.5. Creat peak 3.9 during recent admit, now 2.36. Likely still recovering from prior STEFANO, suspected to be pre-renal. BUN/creat ratio wnl butmay have obstructive component now. UA +gluc, protein, hyaline casts. Good UOP response to fluids in ED but required straight cath. Denies decreased UOP, bladder/bowel incontinence, saddle anesthesia. -1L IVF in ED, CTM -bladder scan on arrival to floor w/ 320cc, straight cath'd; will repeat bladder scan 0900 -consider renal US -strict I&O, avoid nephrotoxins ?? #T2DM Previously on Jardiance, Trulicity, which were dc'd iso STEFANO. Insulin regimen changed from 55U Lantus nightly to 15U lantus bid for hypoglycemia to 70s. A1c 8.0 08/13. -Lantus 16U qhs, 5U Lispro TIDAC, SSI while inpatient -consistent carb diet ?? #Schizophrenia Baseline +AH but denies on exam. Managed on Risperidone 2mg daily prior to switch to Haldol 5mg daily for concerns of worsening diabetic control. As above, appears to have had side effects from Haldol, so Psychiatry switched back to Risperidone 2mg 08/07. Has not yet restarted. -last haldol 08/06, holding sedating meds; if mental status remains stable, can consider restarting ?? #Hypertension #Hyperlipidemia BP 140-150s/60s in ED. Previously rx'd lisinopril 10mg, HCTZ 25mg, amlo 5mg, hydral 25mg tid; Cardschanged to just amlodipine 10mg daily on 08/05. TTE 07/2021 w/ EF 60-65%, G1DD, PASP 35. -atorva 40 - holding amlo 10mg given c/f orthostasis as above but can restart once ortho vitals obtained ?? #Anemia, normocytic BL Hgb 10 iso CKD, 9.7 on admission. Tsat 25, TIBC 231, B12 684, folate >20 01/2021. No s/o bleeding. ?? Code Status: Full Code Diet: Adult Diet Regular, Restricted; Consistent Carbohydrate; Renal DVT Prophylaxis: SQH Access: PIV Dispo: pending PT/OT Kenny Dixon MD, PGY-1\ Cosigned by Tati Duvall MD at 08/09/2021 2:51 PM RAIL SPECIALIST SPECIALIST SPECIALIST SPECIALIST Associated attestation - Tati Duvall MD - 08/09/2021 2:51 PM RAIL SPECIALIST I have seen and examined the patient on 08/09/21. I agree with the findings and plan of care as discussed with the resident/fellow.. * Dorys Sommer, RN - 08/09/2021 12:22 PM CST CM Initial Assessment Interview Note Information Obtained From: Adult child Name: Areli Gayle - dtr. [phone] (08/09/211209) Admission Source: from home Impression: Dementia, Schizophrenia, DM, HTN, HLD, CKD, Falls, Neuropathy, CKD, Urinary Retention, Hypertension, Hyperlipidemia, Anemai Plan Includes: Potential SNF - e-mailed daughter a list of SNFs in her area. She will notify us if she wants us to request any others - but definitely wanted to request [facility] - CM placed [facility] Referral for [facility]. 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 : Yes, Outside of home Number of steps outside:: 1 steps (08/09/211209) Potential discharge needs include: Dialysis: Behavioral Health Services: Behavioral Health Services: No (08/09/211209) Patient expects to be Discharged to: Care Home Facility, (08/09/211209) Additional Information: N/A Patient's Identified Problem/Goal Problem: Ensure acute medical [...] Collaboration with patient, MD, direct care nurse, Coyote Hunter, Nurse Coordinator and other members of the health care team to assure needed interventions completed. 2. Return patient to optimal level of self-care post discharge. 3. International Marketing Manager will follow for Discharge Planning - interventions as needed 4. Anticipated level of care at discharge 5. Planned Discharge Disposition Based on a comprehensive family assessment, assistance with instrumental activities of daily livingafter discharge will be provided by the patient's family Through the course of our work I determined that the patient's family possesses the skill and ability to provide and monitor the care of the patient when she returns home. The patient's family has the capacity to provide/monitor/arrange for the care of the patient. Finally, we determined that the patient's family has the knowledge of available resources and that combining them with their existingresources will suffice to sustain and care for the patient when she returns home. The treatment team is aware of this information. All are in agreement with the aftercare plan. Dorys Sommer RN SPECIALIST SPECIALIST * Josh Alcazar - 08/09/2021 10:29 AM CST Occupational Therapy Occupational Therapy Initial Assessment NOTE:This is a summary note for the north assessments completed during the evaluation session. For full details, review chart review for all flowsheets documented on by this Occupational Therapist on this date. Vital signs documented in vital signs flowsheet. Assessment Assessment Problem List: Decreased cognition, Decreased balance, Decreased functional mobility, Decreased ADL independence, Decreased IADL independence Barriers to Discharge: None Plan Plan Plan: Discharge, If this is the last note, consider this the discharge summary OT Recommendation and Plan Recommendation/Plan OT Recommendation: Home with 24 hour supervision, No further OT indicated OT Recommendation/Plan Comments: Pt. agreeable to recommendation and daughter currently provides FTassistance and works from home. If given information is inaccurate, Pt. will benefit from Long TermCare for 24 hour supervision due to cognitive deficits. OT Frequency: One-time visit (Discharge from this service) Comments: OT evaluation session focused on completing functional mobility for ADL tasks. After given SBT Pt. asked questions about dementia diagnosis and her cognition. OT educated Pt. on cognitive strategies for memory and gave Pt. handout. Pt.verbalized understanding of strategies. Progress: Discontinue OT OT - OK to Discharge: Yes OT Evaluation Complete: Yes General Information General Chart Reviewed: Yes Session Type: Evaluation (Initial DC) OT Received On: 08/09/21 Safe Environment: Arm Band Checked, Call Light within Reach, Overbed Table within Reach (Pt. found sitting at EOB and Pt. returned to chair.) Subjective: Agreeable to Therapy Occupational Therapy-Patient Goal: I want to keep exercising and return home to my daughter Precautions Precautions Precautions: Fall risk Weight Bearing Restrictions: No Precaution Handout Issued: No Precaution Comments: OTS PPE worn: mask, gloves. Home Living Home Living Type of Home: Apartment Home Layout: One level Home Access: Level entry Bathroom Shower/Tub: Tub/shower unit Bathroom Toilet: Standard Bathroom Accessibility: Accessible Home Mobility Equipment: Single point cane Prior Function Prior Function Level of Herald: Independent with ADLs, Independent functional transfers, Independent with ambulation, Dependent with homemaking Receives Help From: Family (Pt. 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 reported having 1 fall due to loss of balance. Prior Function Comments: Pt. is a questionable historian due to cognitive status. Pt. stated that she does not use any device for mobility at baseline, but later stated that she uses a single point cane. Activities of Daily Living Grooming Grooming: Where assessed: Standing at sink (With use of W/W) Grooming: Level of assistance: Standby Assist (No assist with task, SPV for balance) Grooming: Assistance with: Increased time to complete LE Dressing LE Dressing: Where assessed: Sitting, Chair LE Dressing: Level of assistance: Standby Assist (No assist with task, SPV for balance) LE Dressing: Assistance with: Requires assistive device for steadying, Increased time to complete Toileting Toileting: Where assessed: Toilet Toileting: Level of assistance: Standby Assist (No assist with task, SPV for balance) Toileting: Assistance with: Increased time to complete Toilet Transfers Toilet Transfer From: Other (Comment) (Stand) Toilet Transfer Type: To and from Toilet Transfer to: Standard toilet Toilet Transfer Technique: (sit to stand, stand to sit) Toilet Transfer: Equipment: Wheeled walker Toilet Transfers: Supervision Toilet Transfers Comments: Pt.required SPV for balance/safety. VC's required for safe use of grab bar when descending to toilet. Pain Pain Assessment Pain Assessment: 0-10 Pain Score: 0 - No pain Patient's Stated Pain Goal: No pain Cognition Cognition Overall Cognitive Status: Impaired (Indicated by Short Blessed Test Score.) Arousal/Alertness: Alert, Appropriate responses to stimuli Attention Span: Appears intact Memory: Decreased short term memory Current communication: Appears Intact Orientation : Oriented X4 (person, place, time, situation) Following Commands: Follows all commands and directions without difficulty Safety Judgment: Decreased awareness of need for assistance Awareness of Errors: Assistance required to identify errors made, Assistance required to correct errors made Insight: Decreased awareness of deficits Problem Solving: Assistance required to identify errors made, Assistance required to implement solutions Compliance/Behavior: Easy to engage Perseveration: Not present Short Blessed Test What year is it now?: Incorrect What month is it now?: Correct Repeat this name and address after me: Adryan Rivera [address] [place] [address] Without looking at the clock, tell me what time it is: Correct-within one hour Count aloud backwards from 20-1: 0 Errors Say the months of the year backwards in reverse order: 2 Errors Repeat the name and address I asked you to remember: 3 Errors Short Blessed Total Score: 14 Short Blessed Comments: Impaired 6 Clicks Daily [...] extremity supported, Feet supported Static Sitting-Sitting Surface: Bed Static Sitting-Level of Assistance: Independent Dynamic Sitting Balance Dynamic Sitting-Balance Support: No upper extremity supported, Feet supported Dynamic Sitting-Balance: Forward lean, Reaching for objects, Reaching across midline (During LB dressing task.) Dynamic Sitting-Sitting Surface: Chair Dynamic Sitting-Level of Assistance: Independent Static Standing Balance Static Standing-Balance Support: Bilateral upper extremity supported (With use of W/W) Static Standing-Standing Surface: Floor Static Standing-Level of Assistance: Close supervision Static Standing-Comment/# of Minutes: SPV for safety/balance Dynamic Standing Balance Dynamic Standing-Balance Support: Bilateral upper extremity supported (With use of W/W) Dynamic Standing-Balance: Forward lean, Reaching for objects (During grooming and toileting task.) Dynamic Standing-Standing Surface: Floor Dynamic Standing-Level of Assistance: Close supervision Dynamic Standing-Comments: SPV for safety/balance Transfers Transfers Transfer: Yes (Gait belt donned.) Transfer 1 Transfer From 1: Sit Transfer Type 1: To and from Transfer to 1: Stand Technique 1: Sit to stand, Stand to sit Transfer Device 1: Wheeled walker Transfer Level of Assistance 1: Standby Assist Trials/Comments 1: SBA for hand placement and safe use of wheeled walker and safety/balance as Pt. reported sometimes my legs get weak . Transfers 2 Transfer Device 2: Wheeled walker Transfer Level of Assistance 2: Standby Assist Trials/Comments 2: Pt. completed functional mobility with use of W/W and SBA for safety/balance. Bed Mobility Bed Mobility Bed Mobility: No (Pt. found sitting at EOB.) RUE Assessment RUE Assessment RUE Assessment: Within Functional Limits LUE Assessment LUE Assessment LUE Assessment: Within Functional Limits Other Comments Other Comments Comments: OT evaluation session focused on completing functional mobility for ADL tasks. After given SBT Pt. asked questions about dementia diagnosis and her cognition. OT educated Pt. on cognitive strategies for memory and gave Pt. handout. Pt.verbalized understanding of strategies. OT Goals Multi-Disciplinary Problems (from Occupational Therapy) Active Problems Not on file Cosigned by Connie Wallace OT at 08/09/2021 11:56 AM RAIL SPECIALIST SPECIALIST SPECIALIST * Brittney Arellano, PT - 08/08/2021 10:42 AM CST Physical Therapy Physical Therapy Initial Assessment NOTE: This is a summary note for the north assessments completed during the evaluation session. For full details, review chart review for all flowsheets documented on by this physical therapist on thisdate. Vital signs documented in vital signs flowsheet. Assessment Assessment Prognosis: Good Problem List: Gait deviations, Decreased strength, Decreased endurance, Impaired balance, Decreasedmobility, Decreased cognition, Decreased safety awareness Problem List Comments: PT Diagnosis: Pt with weakness, falls, confusion p/w c/f orthostatic hypotension and PMH dementia results in above listed activity deficits and impairments which prevent full participation in home and community mobility. Barriers to Discharge: Current Mobility Status (unlcear level of caregiver assist) Plan Plan Plan : Plan of care initiated, If this is the last note, consider this the discharge summary PT Recommendation and Plan Recommendation/Plan PT Recommendation/Plan: Care Home Facility PT Recommendation/Plan Comments: PT POC not fully discussed with pt d/t pt cognitive status. PT Frequency: 2-3x/wk Treatment/Interventions: Balance Training, Bed mobility, Endurance training, Functional activity, Functional transfer training, Gait training, Range of motion, Strengthening, Therapeutic activity, Therapeutic exercise, Transfer training PT - Next Appointment: 08/12/21 PT Evaluation Complete: Yes General Information General Chart Reviewed: Yes Session Type: Evaluation PT Received On: 08/08/21 Safe Environment: Arm Band Checked, Chair Alarm placed and activated, Call Light within Reach, Notified RN, Session Completed Bedside, Overbed Table within Reach Subjective: Agreeable to Therapy PT Missed Visit Reason: Other (comment) (Pending results of lumbar spine CT. Will hold PT evaluation at this time.) Family/Caregiver Present: No Physical Therapy-Patient Goal: The pt does not have any PT goals. Prior Function Prior Function Level of Herald: Other (Comment) (see prior function comments) Lives With: Daughter Receives Help From: Family (FT assist available, if needed) Fall within the last 6 months: Yes Fall within the last 6 months comment: Pt reported 2 falls 2/2 to her legs giving out. Prior Function Comments: Pt is a questionable historian 2/2 PMH of dementia and current cognitive status.Pt inconsistent with report of functional mobility. Pt states that she uses a cane. Initially she stated that she always requires assist for ambulation then stated that she can independently walk in her apartment. Home Living Home Living Type of Home: Apartment Home Layout: One level Home Access: Level entry Home Mobility Equipment: Single point cane Additional Comments: Pt is a questionable historian 2/2 PMH of dementia and current cognitive status. Precautions Precautions Precautions: Fall risk Pain Pain Assessment Pain Assessment: No/denies pain Cognition Cognition Arousal/Alertness: Alert, Appropriate responses to stimuli Orientation : Oriented to person, Other (Comment) (Oriented to month, not day or year. Oriented to [facility] (thought she was at [facility])) Following Commands: Follows one step commands consistently Safety Judgment: Decreased awareness of need for assistance Compliance/Behavior: Easy to engage 6 Clicks Basic Mobility - 6 Click [...] little Total 6 Click Score (range 6-24): 19 Bed Mobility Bed Mobility Bed Mobility: No (Pt sitting at EOB upon PT entrance.) Transfers Transfers Transfer: Yes Transfer 1 Transfer From 1: Sit Transfer Type 1: To and from Transfer to 1: Stand Technique 1: Sit to stand, Stand to sit Transfer Device 1: No device Transfer Level of Assistance 1: Standby Assist Trials/Comments 1: 4 reps. SBA for safety. Pt uses UEs however demonstrates decreased force production. Balance Static Sitting Balance Static Sitting-Balance Support: No upper extremity supported, Feet supported Static Sitting-Sitting Surface: Bed Static Sitting-Level of Assistance: Independent Static Standing Balance Static Standing-Balance Support: No upper extremity supported Static Standing-Standing Surface: Floor Static Standing-Level of Assistance: Close supervision Static Standing-Comment/# of Minutes: supervision for safety. Pt reports dizziness while standing during orthostatic assessment, Ambulation Ambulation Ambulation: Yes Ambulation 1 Distance (ft) 1: 25 Surface 1: Level tile Device 1: No device Assistance 1: Standby Assist Gait: Requires verbal cues to 1: Pace activity Quality of Gait 1: very decreased gait speed and step length Ambulation Comments 1: SBA for safey. Pt ambulated 15+10 feet with seated rest break in between. Stairs Stairs Stairs: No Curbs RLE Assessment RLE Assessment RLE Assessment: Within Functional Limits LLE Assessment LLE Assessment LLE Assessment: Within Functional Limits Equipment Used Equipment Use Equipment Use Comments: gait belt used Other Comments PT Goals Multi-Disciplinary Problems (from Physical Therapy) Active Problems Problem: Mobility Start Date: 08/08/21 Goal Start Date Expected End Date End Date LTG - Patient will demonstrate functional mobility with the following level of assist: 08/08/21 09/05/21 -- Goal Details: Modified independent Goal Start Date Expected End Date End Date STG - Patient will ambulate 08/08/21 08/22/21 -- Goal Details: 150 feet, AAD, SBA Problem: Transfers Start Date: 08/08/21 Goal Start Date Expected End Date End Date STG - Patient to transfer to and from sit to supine 08/08/21 08/22/21 -- Goal Details: Modified independent Goal Start Date Expected End Date End Date STG - Patient will transfer sit to and from stand 08/08/21 08/22/21 -- Goal Details: Modified independent SPECIALIST * Brittney Arellano, PT - 08/08/2021 8:59 AM CST Physical Therapy 08/08/21 0859 General PT Missed Visit Reason Other (comment) (Pending results of lumbar spine CT. Will hold PT evaluation at this time.) SPECIALIST documented in this encounter H&P Notes * Paula Velazquez MD - 08/08/2021 12:04 AM CST Medicine History and Physical HPI: 70 y.o. Fwith PMH of dementia, schizophrenia, DM, HTN, HLD and CKD who p/w weakness, fatigue and confusion. History obtained through patient and daughter, Ursula, who was at bedside. Pt reports decreased energy for approx 1 month. She denies confusion but daughter reports she has been slower to respond and given some inappropriate answers during this time, poor appetite and lowerPO intake. Denies fever/chills, N/V/C/D, dysuria, sore throat, flank pain, dysphagia, choking, vision changes. Recently admitted to [facility] 07/31-08/04 for falls and STEFANO. Rx'd course of Augmentin but no infectious source found per PCP note and daughter. Of note, switched from Risperdal 2mg daily to Haldol 5mg qhs on 07/01/21 due to worsened diabetes control. Daughter does feel pt's increased fatigue/sedation started around that time. Told to switch back to Risperdal at telehealth visit w/ Psych 08/07. Last Haldol dose 08/06. Has been experiencing episodes of legs giving out during the past month. Pt has known diabetic neuropathy, worse RLE >LLE, LE >UE. During the past month, reports spells of lightheadedness/dizziness and legs giving out causing her to fall or slump to the floor. Has occurred with rising andmicturation. Last fall was day of presentation; pt says she was on the toilet and felt lightheaded when arising, so had to suddenly sit back down; did not fall off toilet or experience any trauma. Denies syncope/LOC, traumatic fall, head strike, bladder/bowel incontinence, saddle anesthesia, back pain. XR lumbar w/ DDD 06/11. TTE 07/2021 at OSH reported in cardiology note to show EF 60-65%, G1DD, P ASP 35mmHg. Has had her antihypertensive regimen decreased over past few weeks, now just [id number] daily (changed 08/05). In ED, BP 133/68, HR 89, RR 15, SpO2 96% on RA, afebrile. Initial labs significant for WBC 12.5, Hgb 9.7, Creat 2.36, BUN 40, bicarb 23. Pt given 1L LR in ED w/ appropriate UOP response. VSS on arrival to floor. Past Medical History: Diagnosis Date ??? Arthritis [...] ??? amLODIPine (NORVASC) 10 mg tablet Take 1 tablet (10 mg total) by mouth daily 30 tablet 6 ??? amoxicillin-clavulanate (AUGMENTIN) 875-125 mg per tablet Take 1 tablet by mouth Take 1 tablet q 12 hours ??? atorvastatin (LIPITOR) 40 mg tablet Take 1 tablet (40 mg total) by mouth daily 90 tablet 3 ??? BD Arlyn 2nd Gen Pen Needle 32 gauge x needle USE TO INJECT BASAGLAR EVERY NIGHT AT BEDTIME ??? blood pressure monitor kit Check BP as instructed 1 kit 0 ??? conner.stocking,thigh,reg,med misc Wear as much as possible 2 each 1 ??? famotidine (PEPCID) 40 mg tablet Take 1 tablet (40 mg total) by mouth daily 90 tablet 3 ??? glucose 4 gram chewable tablet Take 4 tablets (16 g total) by mouth as needed for low blood sugar (less than 70) and let Dr. Corcoran know! 50 tablet 0 ??? haloperidoL (HALDOL) 5 mg tablet Take 1 tablet (5 mg total) by mouth nightly 30 tablet 11 ??? hydroCHLOROthiazide (HYDRODIURIL) 25 mg tablet Take 1 tablet (25 mg total) by mouth daily 90 tablet 1 ??? insulin glargine (LANTUS) 100 unit/mL (3 mL) pen for injection Inject 55 Units under the skin nightly (Patient taking differently: Inject 55 Units under the skin nightly 15 units a.m 15 p.m.) 50 mL 1 ??? lancets misc Check blood sugar up to 3 times a day 100 each 3 ??? lidocaine (LIDODERM) 5 % Place 1 patch on the skin daily Apply to painful area 12 hours per day, remove for 12 hours. 90 patch 1 ??? miscellaneous medical supply (Blood Pressure Cuff) misc Use to check blood pressure daily 1 each 1 ??? multivitamin with minerals tablet Take 1 tablet by mouth daily ??? wuedwanu-[id number]-[id number] (MAXITROL) 3.5mg/mL-10,000 unit/mL-0.1 % ophthalmic suspension ??? omeprazole (PriLOSEC) 20 mg capsule Take [...] U-100 MISC) 3 times a day No Known Allergies Social History Tobacco Use ??? Smoking status: Never Smoker ??? Smokeless tobacco: Never Used Substance Use Topics ??? Alcohol use: Not Currently Family History Problem Relation Age of Onset ??? Stomach cancer Father Review of Systems: Review of Systems Constitutional: Positive for fatigue. Negative for chills and fever. HENT: Negative for sore throat and trouble swallowing. Eyes: Negative for photophobia and visual disturbance. Respiratory: Negative for cough, choking, shortness of breath and wheezing. Cardiovascular: Negative for chest pain, palpitations and leg swelling. Gastrointestinal: Negative for abdominal pain, blood in stool, constipation, diarrhea, nausea and vomiting. Endocrine: Positive for polydipsia. Negative for polyuria. Genitourinary: Negative for decreased urine volume, dysuria, flank pain and hematuria. Musculoskeletal: Positive for gait problem. Negative for back pain, myalgias and neck stiffness. Neurological: Positive for dizziness, weakness, light-headedness and numbness. Negative for seizures, syncope, speech difficulty and headaches. Psychiatric/Behavioral: Positive for confusion. Negative for agitation and hallucinations. Objective Vitals: Arrival Vitals [08/07/21 1627] Temp 37.1 ??C (98.8 ??F) Pulse 89 Resp 15 BP 133/68 SpO2 96 % Temp src Oral Heart Rate Source Patient Position BP Location FiO2 (%) 24hr Min/Max: Temp Min: 36.6 ??C (97.9 ??F) Max: 37.1 ??C (98.8 ??F) Pulse Min: 68 Max: 89 BP Min: 129/76 Max: 163/97 Resp Min: 11 Max: 18 SpO2 Min: 95 % Max: 100 % Most Recent : Vitals: 08/08/21 0242 BP: 148/57 Pulse: 74 Resp: 16 Temp: 36.6 ??C (97.9 ??F) SpO2: 100% No intake/output data recorded. I/O this shift: In: - Out: 750 [Urine:750] Physical exam: Physical Exam Vitals reviewed. Constitutional: General: She is not in acute distress. Appearance: She is not toxic-appearing. HENT: Right Ear: External ear normal. Left Ear: External ear normal. Nose: Nose normal. Mouth/Throat: Mouth: Mucous membranes are moist. Pharynx: Oropharynx is clear. No oropharyngeal exudate. Eyes: General: No scleral icterus. Extraocular Movements: Extraocular movements intact. Pupils: Pupils are equal, round, and reactive to light. Cardiovascular: Rate and Rhythm: Normal rate and regular rhythm. Pulses: Normal pulses. Heart sounds: Normal heart sounds. No murmur heard. Pulmonary: Effort: Pulmonary effort is normal. Breath sounds: Normal breath sounds. No wheezing, rhonchi or rales. Abdominal: General: Bowel sounds are normal. There is no distension. Palpations: Abdomen is soft. Tenderness: There is no abdominal tenderness. There is no right CVA tenderness, left CVA tendernessor guarding. Comments: Area of superficial TTP on LLQ but at level of skin, not on deep palpation; no skin breakdown/wound/rash Musculoskeletal: Cervical back: Normal range of motion. No rigidity. Right lower leg: No edema. Left lower leg: No edema. Lymphadenopathy: Cervical: No cervical adenopathy. Skin: General: Skin is warm and dry. Capillary Refill: Capillary refill takes 2 to 3 seconds. Neurological: General: No focal deficit present. Mental Status: She is alert. Cranial Nerves: No cranial nerve deficit. Deep Tendon Reflexes: Reflexes normal. Comments: A&O to self, [facility], city, not year or president +paresthesias with palpation of BLE up to calves but sensation intact BUE/BLE 5/5 strength in BUE/BLE No myoclonus, some cogwheel rigidity of neck lateral ROM but not of UE/LE Declined to walk, gait not assessed Psychiatric: Mood and Affect: Mood normal. Behavior: Behavior normal. Lab/Radiology/Diagnostic Review: Lab Results Component Value Date WBC 12.5 (H) 08/07/2021 HGB 9.7 (L) 08/07/2021 HCT 31.2 (L) 08/07/2021 MCV 92.9 08/07/2021 LABPLAT 319 08/07/2021 Lab Results Component Value Date GLUCOSE 129 08/08/2021 CALCIUM 9.6 08/07/2021 SODIUM 143 08/07/2021 POTASSIUM 4.3 08/07/2021 CO2 23 08/07/2021 CHLORIDE 109 08/07/2021 BUNSER 40 (H) 08/07/2021 CREATININE 2.36 (H) 08/07/2021 Lab Results Component Value Date CHOL 133 02/07/2021 CHOL 211 (H) 04/02/2020 Lab Results Component Value Date HDL 51 02/07/2021 HDL 51 04/02/2020 Lab Results Component Value Date LDLCALC 53 02/07/2021 LDLCALC 135 (H) 04/02/2020 Lab Results Component Value Date TRIG 147 02/07/2021 TRIG 123 04/02/2020 CXR 08/07: EXAMINATION: XR CHEST PA LATERAL 2 VIEWS ?? HISTORY: Increasing confusion, infectious workup ?? COMPARISON: 12/08/2011 ?? IMPRESSION: Linear airspace opacities in the right lung base are favored to represent mild atelectasis. No pleural effusion or pneumothorax. Cardiomediastinal silhouette is stable. ?? Dictated by: Luan Colunga M.D. This result has not been signed. Information might be incomplete. Assessment and Plan: 70 y.o. F with PMH of dementia, schizophrenia, DM, HTN, HLD and CKD who p/w weakness, fatigue and confusion. #Fatigue #Confusion Pt reports decreased energy for approx 1 month. Denies confusion but daughter reports she has been slower to respond and given some inappropriate answers during this time. Poor appetite and lower PO intake. Has been experiencing episodes of legs giving out during this time, discussed below. Denies fever/chills, N/V/C/D, dysuria, sore throat, flank pain, dysphagia, choking, vision changes. Recently admitted to [facility] 07/31-08/04 for falls and STEFANO. Rx'd course of Augmentin but no infectious source found per PCP note and daughter. Of note, switched from Risperdal 2mg daily to Haldol 5mg qhs on 07/01/21 due to worsened diabetes control. Daughter does feel pt's increased fatigue/sedation startedaround that time. Told to switch back to Risperdal at telehealth visit w/ Psych 08/07. Last Haldol dose 08/06. A&O to person, place at [facility] due to suspected Alzheimer's dementia; same today. In ED, WBC 12.4, VSS. Pt is alert and responding appropriately, A&O to self, place but not time, appearsat [facility]. No meningismus. -ddx includes medication side effect vs infection vs delirium 2/2 recent hospital admission; favor medication side effect -UA noninfectious, CXR clear, no wounds, BCx pending -hold sedating meds -BUN elevated 40, less likely as sole cause of encephalopathy #Falls #Neuropathy Pt has known diabetic neuropathy, worse RLE >LLE, LE >UE. During the past month, reports spells of lightheadedness/dizziness and legs giving out causing her to fall or slump to the floor. Hasoccurred with rising and micturation. Denies syncope/LOC, traumatic fall, head strike, bladder/bowel incontinence, saddle anesthesia, back pain. XR lumbar w/ DDD 06/11. TTE 07/2021 at OSH reported in c ardiology note to show EF 60-65%, G1DD, PASP 35mmHg. Previously rx'd lisinopril 10mg, HCTZ 25mg, amlo 5mg, hydral 25mg tid; Cards changed to just amlodipine 10mg daily on 08/05. BP 140-150s/60s in ED.Exam with sensation intact in all extremities, 5/5 strength; pt declined standing/walking but per ED report and documented exam, no ataxia. Cogwheel rigidity of neck ROM but not extremities. Did require straight cath in ED but pt reports she felt uncomfortable going , denies retention/decreased UOP at home. -presentation c/f orthostatic hypotension although BP mildly elevated at rest in ED; may have component of over-sedation worsening balance iso peripheral neuropathy vs bradykinesia due to medication side effect as above. Low concern for acute spinal process given reassuring physical exam. -orthostatic vitals, telemetry -holding risperdal as above -will obtain CT lumbar spine to rule out spinal stenosis; suspect urinary retention as sequela of anticholinergic effects of antipsychotics -PT/OT #CKD #Urinary retention Believed 2/2 hypertension, diabetes. BL unclear, but ~1.4-1.5. Creat peak 3.9 during recent admit, now 2.36. Likely still recovering from prior STEFANO, suspected to be pre-renal. BUN/creat ratio wnl butmay have obstructive component now. UA +gluc, protein, hyaline casts. Good UOP response to fluids in ED but required straight cath. Denies decreased UOP, bladder/bowel incontinence, saddle anesthesia. -1L IVF in ED, CTM -bladder scan on arrival to floor w/ 320cc, straight cath'd; will repeat bladder scan 0900 -consider renal US -strict I&O, avoid nephrotoxins #T2DM Previously on Jardiance, Trulicity, which were dc'd iso STEFANO. Insulin regimen changed from 55U Lantus nightly to 15U lantus bid for hypoglycemia to 70s. A1c 8.0 08/13. -Lantus 16U qhs, 5U Lispro TIDAC, SSI while inpatient -consistent carb diet #Schizophrenia Baseline +AH but denies on exam. Managed on Risperidone 2mg daily prior to switch to Haldol 5mg daily for concerns of worsening diabetic control. As above, appears to have had side effects from Haldol, so Psychiatry switched back to Risperidone 2mg 08/07. Has not yet restarted. -last haldol 08/06, holding sedating meds; if mental status remains stable, can consider restarting #Hypertension #Hyperlipidemia BP 140-150s/60s in ED. Previously rx'd lisinopril 10mg, HCTZ 25mg, amlo 5mg, hydral 25mg tid; Cardschanged to just amlodipine 10mg daily on 08/05. TTE 07/2021 w/ EF 60-65%, G1DD, PASP 35. -atorva 40 - holding amlo 10mg given c/f orthostasis as above but can restart once ortho vitals obtained #Anemia, normocytic BL Hgb 10 iso CKD, 9.7 on admission. Tsat 25, TIBC 231, B12 684, folate >20 01/2021. No s/o bleeding. Code Status: Full Code Diet: Adult Diet Regular, Restricted; Consistent Carbohydrate; Renal DVT Prophylaxis: SQH Access: PIV Dispo: pending PT/OT Paula Velazquez MD Internal Medicine, PGY-3 Cosigned by Tati Duvall MD at 08/08/2021 1:22 PM RAIL SPECIALIST SPECIALIST SPECIALIST SPECIALIST Associated attestation - Tati Duvall MD - 08/08/2021 1:22 PM RAIL SPECIALIST I have seen and examined the patient on 08/08/21. I agree with the findings and plan of care as discussed with the resident/fellow.. documented in this encounter Consult Notes * Emy Moralez RD - 08/10/2021 12:46 PM CSTAssociated Order(s): IP CONSULT TO NUTRITION SERVICES Nutrition Assessment Reason for Assessment: Initial Nutrition Assessment and Consult/Referral Encounter Date: 08/10/21 12:47 PM Patient is a 70 y.o. female . LOS is 3 days. HPI: The patient is a 70 y.o. female with a history of dementia,??schizophrenia, DM, HTN, HLD and CKD who p/w weakness, fatigue and confusion. Objective Past Medical History: Diagnosis Date ??? [...] Anthropometrics: Wt Readings from Last 3 Encounters: 08/08/21 65.6 kg (144 lb 10 oz) 08/05/21 64 kg (141 lb 1.6 oz) 08/05/21 63 kg (139 lb) Anthropometrics Weight: 65.6 kg (144 lb 10 oz) Admission Weight : 65.6 kg Weight Change: 1.59 kg (3.52 lbs) IBW/kg (Calculated) : 49.9 kg Height: 157.5 cm (5' 2 ) Weight in (lb) to have BMI = 25: 136.4 BMI (Calculated): 26.4 Nutrition Needs Calculations: Calculated Energy Needs Using Equations Weight: 65.6 kg (144 lb 10 oz) Height: 157.5 cm (5' 2 ) Vital Signs: BP: 119/55 Temp: 36.6 ??C (97.9 ??F) Pulse: 66 Resp: 18 SpO2: 95 % Medications: Scheduled Meds: atorvastatin, 40 mg, oral, Daily famotidine, 20 mg, oral, Daily heparin, 5,000 Units, subcutaneous, Q8H SOL insulin glargine, 0.25 Units/kg, subcutaneous, Nightly insulin lispro, 0-10 Units, subcutaneous, TID with meals insulin lispro, 0-5 Units, subcutaneous, Nightly insulin lispro, 0.083 Units/kg, subcutaneous, TID with meals pregabalin, 75 mg, oral, Daily [Held by Provider] risperiDONE, 2 mg, oral, Nightly sodium chloride 0.9%, 0.5-20 mL, intra-catheter, Q8H SOL Continuous Infusions: PRN Meds: ??? acetaminophen ??? bisacodyL ??? bisacodyl EC ??? dextrose OR dextrose ??? glucagon ??? polyethylene glycol ??? ramelteon ??? sodium chloride 0.9% Lab Review: Sodium Date Value Ref Range Status 08/09/2021 143 135 - 145 mmol/L Final Potassium, pl Date Value Ref Range Status 08/09/2021 4.0 3.3 - 4.9 mmol/L Final BUN Date Value Ref Range Status 08/09/2021 29 (H) 8 - 25 mg/dL Final Creatinine Date Value Ref Range Status 08/09/2021 1.65 (H) 0.60 - 1.10 mg/dL Final Albumin Date Value Ref Range Status 08/07/2021 4.1 3.5 - 5.0 g/dL Final Calcium Date Value Ref Range Status 08/09/2021 9.5 8.5 - 10.3 mg/dL Final ALT Date Value Ref Range Status 08/07/2021 32 7 - 45 Units/L Final AST Date Value Ref Range Status 08/07/2021 21 10 - 45 Units/L Final Alk phos Date Value Ref Range Status 08/07/2021 118 40 - 130 Units/L Final Lab Results Component Value Date HGBA1C 8.0 (H) 08/05/2021 HDL 51 02/07/2021 LDLCALC 53 02/07/2021 CHOL 133 02/07/2021 TRIG 147 02/07/2021 Nursing Assessment: Intake/Output Summary (Last 24 hours) at 08/10/2021 1247 Last data filed at 08/10/2021 0650 Gross per 24 hour Intake 480 ml Output 550 ml Net -70 ml Gastrointestinal Gastrointestinal (WDL): Exceptions to WDL Abdomen Inspection: Nondistended Bowel Sounds (All Quadrants): Active Palpation: Soft Last BM Date: 08/10/21 Passing Flatus: Yes GI Symptoms: None Last BM Date: 08/10/21 Timoteo Scale Score: 18 Skin Integrity: Other (Comment) (scab) Dietary Orders (From admission, onward) Start Ordered 08/10/21 0738 Oral Nutrition Supplements Select Supplement: Glucerna Shake - Straw All Meals Question: Select Supplement: Answer: Glucerna Shake - Straw 08/10/21 0737 08/10/21 0736 Adult Diet Regular, Restricted; Consistent Carbohydrate Diet effective now Question Answer Comment ([facility]) Diet type Regular ([facility]) Diet type Restricted Diabetic: Consistent Carbohydrate 08/10/21 0737 08/08/21 2100 Bedtime snack At bedtime Comments: If bedtime BG is less than 100mg/dl, give patient a 15 gram carbohydrate snack. 08/08/21 0231 Impression: RD consulted for poor PO x 1 month. Pt ate 25% or more of breakfast. RD brought glucerna shake and pt drank 100%. Pt denies any n/v/d/c. Pt denies chewing or swallowing difficulty. Pt was sitting up on the side of bed, conducted NFPE, pt appear to have age appropriate muscle/fat stores. Pt bed scale was broken and pt was unable to provide weight history or UBW. Pt may appear to have 4% - 7.6% weight loss in the last couple months But unclear accuracy. Wt Readings from Last 6 Encounters: 08/08/21 65.6 kg (144 lb 10 oz) 08/05/21 64 kg (141 lb 1.6 oz) 08/05/21 63 kg (139 lb) 07/02/21 70.8 kg (156 lb) 06/18/21 70.8 kg (156 lb 1.6 oz) 05/28/21 68.1 kg (150 lb 1.6 oz) NUTRITION DIAGNOSIS Nutrition Diagnosis 1: Predicted suboptimal energy intake Related to: Altered mental status Evidenced by: PO under 50% INTERVENTION Pt does not meet for malnutrition at this time but is at risk. To this RD, pt is eating okay at this time and no muscle or fat wasting, weight loss is unclear. Added glucerna shakes at this time. TID Assist with meals. GOALS / MONITORING: Goals: Tolerance of medical food supplement by next assessment Interventions: NFPE Monitoring and Evaluation: Appetite, Discharge plans, Labs, Plan of care, Supplement tolerance Emy Moralez, MS RDN, LD [phone] SPECIALIST documented in this encounter Nursing Notes * Kiley Saravia RN - 08/14/2021 9:54 AM CST Assessment of patient???s baseline is established at the beginning of the shift in flowsheets. Patient reassessed per order, unexpected findings and/or deviations from baseline are captured in flowsheets. Frequent safety checks and comfort rounds provided. Orders and/or nursing care completed as indicated. Patient monitored for response to interventions and treatments as documented in flowsheets . Plan of care discussed with patient/international representative, including as it relates to Principal Problem: STEFANO (acute kidney injury) (CMS/HCC) (HCC) Patient progressing. Clinical goals for the shift. Monitor labs,v/s and tele. Pt will remain free from falls/injury. Education provided includes Fall Prevention and Isolation Precautions. Patient and/or international representative Needs reinforcement. Will continue to monitor. SPECIALIST * La Nena Wyatt RN - 08/14/2021 12:01 AM CST Assessment of patient???s baseline is established at the beginning of the shift in flowsheets. Patient reassessed per order, unexpected findings and/or deviations from baseline are captured in flowsheets. Frequent safety checks and comfort rounds provided. Orders and/or nursing care completed as indicated. Patient monitored for response to interventions and treatments as documented in flowsheets. Plan of care discussed with patient/international representative, including as it relates to Principal Problem: STEFANO (acute kidney injury) (CMS/HCC) ([facility]) Patient progressing. Clinical goals for the shift includes VSS and remain free of falls/injury. Education provided includes Fall Prevention and Isolation Precautions. Patient and/or international representative Demonstrated understanding. Will continue to monitor. SPECIALIST * Kiley Saravia RN - 08/13/2021 6:25 PM CST Patient transferred to [facility]. from 1440 via wheelchair. Handoff received from [facility] LAY. Patient oriented to environment and equipment. Covering service notified. Orders reviewed and will continue to monitor. Family and/or international representative notified. SPECIALIST documented in this encounter ED Notes * Larry Ding MD - 08/07/2021 10:27 PM CST HPI Chief Complaint Patient presents with ??? Weakness - Generalized ???Portions of the record may have been created with voice recognition software. Occasional wrong-word or ???[id number]??? substitutions may have occurred due to the inherent limitations of voice recognition software. Read the chart carefully and recognize, using context, where substitutions haveoccurred.?? HPI 70-year-old female with a past medical history of dementia, GERD, diabetes, neuropathy, schizophrenia (currently treated with haloperidol) who presents emergency department accompanied by her daughter. The patient has had 2 days of increasing confusion. She had a recent admission for acute kidney injury and confusion at the outside hospital. Records from they were unavailable. The patient's daughter notes that the patient has been exhibiting increasing weakness, which she describes as ???falling in slow motion.?? The patient is described as having on multiple occasions slumped over while walking. The patient was treated for a long period of time for her schizophrenia using risperidone, butrecently switched using haloperidol. Since that time, the patient has had multiple weeks of increased sedation. She had multiple medication adjustments during her prior admission at outside hospital. Allergies: No known drug allergies Medications: Haloperidol Social history: Lives with daughter Family history: Stomach and Patient History: Patient Active Problem List Diagnosis Date Noted ??? Delirium 08/07/2021 ??? Encounter for Medicare annual wellness exam 01/08/2021 ??? Stage 3b chronic kidney disease ([facility]) 12/11/2020 ??? Dementia ([facility]) 10/10/2020 ??? Encounter for psychiatric assessment 10/10/2020 ??? Schizoaffective disorder, bipolar type (CMS/HCC) ([facility]) 10/10/2020 ??? Hyperlipidemia associated with type 2 diabetes mellitus ([facility]) 04/03/2020 ??? Iron deficiency anemia 04/02/2020 ??? GERD (gastroesophageal reflux disease) 04/02/2020 ??? Amputation of toe of right foot (CMS/HCC) ([facility]) 01/19/2020 ??? Hypertension associated with diabetes ([facility]) 12/13/2019 ??? Schizophrenia ([facility]) 08/30/2019 ??? Type 2 diabetes mellitus with diabetic neuropathy, with long-term current use of insulin (CMS/HCC) ([facility]) 08/30/2019 ??? Diabetic neuropathy (CMS/HCC) ([facility]) Past Medical History: Diagnosis Date ??? Arthritis ??? Depression ??? Diabetic neuropathy (CMS/HCC) ([facility]) ??? Hyperlipidemia ??? Hypertension ??? Schizophrenia ([facility]) ??? Type 2 diabetes mellitus ([facility]) Past Surgical History: Procedure Laterality Date ??? [...] Social History Social History Narrative Originally From [place] Grew up with her mom and dad. 12th grade - graduated. [employer]. [place] - none. Christianity. I never worked. Single. Review of Systems Review of Systems Constitutional: Negative for chills and fever. HENT: Negative for sore throat. Eyes: Negative. Respiratory: Negative for shortness of breath. Cardiovascular: Negative for chest pain. Gastrointestinal: Negative for abdominal pain, diarrhea, nausea and vomiting. Endocrine: Negative. Genitourinary: Negative. Negative for dysuria. Musculoskeletal: Positive for gait problem. Skin: Negative. Hematological: Negative. Psychiatric/Behavioral: Positive for confusion. All other systems reviewed and are negative. Physical Exam ED Triage Vitals [08/07/21 1627] Temp Pulse Resp BP SpO2 37.1 ??C (98.8 ??F) 89 15 133/68 96 % Temp src Heart Rate Source Patient Position BP Location FiO2 (%) Oral -- -- -- -- Physical Exam Constitutional: General: She is not in acute distress. Appearance: Normal appearance. She is normal weight. She is not toxic-appearing. HENT: Head: Normocephalic and atraumatic. Right Ear: External ear normal. Left Ear: External ear normal. Nose: Nose normal. No congestion or rhinorrhea. Mouth/Throat: Mouth: Mucous membranes are moist. Pharynx: No oropharyngeal exudate or posterior oropharyngeal erythema. [...] Abdomen is flat. Bowel sounds are normal. There is no distension. Palpations: Abdomen is soft. Tenderness: There is no abdominal tenderness. Musculoskeletal: General: No swelling, tenderness or deformity. Normal range of motion. Cervical back: Normal range of motion. Skin: General: Skin is warm and dry. Coloration: Skin is not jaundiced. Neurological: General: No focal deficit present. Mental Status: She is alert and oriented to person, place, and time. Cranial Nerves: No cranial nerve deficit. Sensory: No sensory deficit. Motor: No weakness. Coordination: Coordination normal. Comments: Sleepy Cogwheel rigidity Psychiatric: Mood and Affect: Mood normal. Behavior: Behavior normal. MDM 70-year-old female with a past medical history of dementia, GERD, diabetes, neuropathy, schizophrenia (currently treated with haloperidol) who presents emergency department accompanied by her daughter. The patient has had 2 days of increasing confusion. She had a recent admission for acute kidney injury and confusion at the outside hospital. Records from they were unavailable. The patient's daughter notes that the patient has been exhibiting increasing weakness, which she describes as ???falling in slow motion.?? The patient is described as having on multiple occasions slumped over while walking. The patient was treated for a long period of time for her schizophrenia using risperidone, butrecently switched using haloperidol. Since that time, the patient has had multiple weeks of increased sedation. She had multiple medication adjustments during her prior admission at outside hospital. On exam, the patient's vitals are within normal limits. She appears sleepy but is otherwise neurologically intact. She has cogwheel rigidity her upper extremities. Patient's cardiac, abdominal, extremity exams are otherwise unremarkable. Given the patient's history and symptoms, concern for medication side effect, polypharmacy, infection, dehydration. Will obtain CBC, CMP, chest x-ray, UA. Disposition pending workup. Attending Summary of Care ED Course as of 08/08/21 0018 Time: 08/07 2202 Value: WBC(!): 12.5 Comment: (Reviewed) By: Larry Ding MD Time: 08/074 Comment: Attending signout: 70 yo F with dementia, schizophrenia on risperdal with recent admissionto OSH with STEFANO here with vague weakness, sleepiness, confusion. Well appearing and Aox4 here. Slight STEFANO here, pending UA, CXR. By: Dulce Moses MD Time: 08/08 15 Comment: Signed out medicine By: Yordy Julio MD No diagnosis found. Larry Ding MD Resident 08/11/21451 Cosigned by Yrn Li MD PhD at 08/13/2021 3:11 PM RAIL SPECIALIST SPECIALIST SPECIALIST Associated attestation - Yrn Li MD PhD - 08/13/2021 3:11 PM RAIL SPECIALIST I have seen and examined this patient, I have discussed/reviewed the history, physical exam and assessment with the resident. We are in agreement with treatment plan except as I have noted, and I agree with their documentation except as noted. * Yrn Li MD PhD - 08/07/2021 8:29 PM CST ED Attending Note Patient was seen by the resident physician. Please see their note for complete details of the initial history and physical exam. My brief history, exam and medical decision making is listed below: This is a 70-year-old lady with history of dementia, delirium, schizoaffective disorder bipolar type recently admitted to an outside hospital for acute delirium and switch to haloperidol which appears to have exacerbated her delirium upon my review of the medical record including a psychiatry teleme dicine progress note from earlier today who presents with continued confusion for the last 2 days following her hospitalization at an outside hospital. Onset gradual. Course worsening. Symptoms ratedas mild to moderate severity by the patient's daughter, the patient endorses some pain and discomfort in her legs bilaterally primarily in her feet but no other real symptoms. No modifying factors. Taking her medications as prescribed no other specific treatments. Review of systems cannot be completed completely secondary to her dementia/delirium although she denies any pain. On my exam she is mildly confused but in no acute distress. Heart is regular rhythm and rate no murmur gallop or rub. Lungs are clear to auscultation bilaterally. Abdomen is soft nontender nondistended. She has no pronator drift. Some delays with [id number] due to the directions of the test but no ataxia, normal distal strength and sensation to light touch in all 4 extremities. Cranial nerves 2-12 intact. [facility] Yrn Li MD, PhD Attending Physician Emergency Medicine Yrn Li MD PhD 08/07/212223 SPECIALIST * Gin Stoll RN - 08/07/2021 8:24 PM CST Bed: ED1-09 Expected date: Expected time: Means of arrival: Car Comments: Gin Stoll RN 08/07/212023 SPECIALIST * Beba Hess RN - 08/07/2021 4:27 PM CST Patient presents with daughter for collateral: Per daughter, pt has been experiencing weakness, fatigue, worsening AMS for past two weeks. Pt has hx of dementia and schizophrenia. Was at [facility] for same complaint from 07/30- for elevated Cr levels and suspected infection (UA supposedly clean). Received antibiotics and had geller cath in place during admission. Of note, pt also had recent change in psych medications. Pt normally ambulates independently,but now legs are randomly giving out. Denies any head trauma or LOC but has had several falls due to weakness. Daughter reports increasing confusion surrounding timing when legs give out. Pt answers a&o questions appropriately x3. SPECIALIST SPECIALIST documented in this encounter Miscellaneous Notes * Teleconsult - Kiley Saravia RN - 08/14/2021 7:11 PM CST Patient discharged to SNF via accompanied by daughter. Discharge instructions reviewed with patientand/or international representative. Mobile pharmacy medications and/or prescriptions provided. Belongings/home medications returned. SPECIALIST * Plan of Care - Clary Rivero RN - 08/13/2021 6:00 PM CST Problem: Lack of Knowledge: Goal: [...] Progressing Goals: Clinical Goals for the Shift: BG WNL, remain free from falls, VSS Summary: Pt remained free from falls and injury through out the shift. Pt did not report any pain during the shift. BG was monitored during the shift and pt required sliding scale lispro with all meals. COVID test was performed prior to discharge to facility and pt has tested positive for covid-19.Pt was then transferred to [facility]. This RN called report to K[facility] LAY. Pt left floor with all of her belongings. VSS for pt. SPECIALIST * Plan of Care - Dagmar Parra, ALIREZA - 08/13/2021 1:41 PM RAIL SPECIALIST TYLER spoke with Fidelia, Admission Director at [place] [phone] asked for a COVID swab. If COVID swab does not result in time for discharge. Fidelia states that [facility] will [facility] rapid COVID swab upon discharge. SPECIALIST * Plan of Care - Dagmar Parra RN - 08/13/2021 8:00 AM RAIL SPECIALIST TYLER followed up with Natacha, the admission's director at [facility] [phone]. They are nottaking any admissions at this time. TYLER spoke with Kathy admission director at [place] [phone] she will know more after her 9 am huddle. CM will follow up. Left message for [place], media center director school at [facility] [phone] CM followed up with Kathy admission director at [place] [phone] they di not have bedavailably. TYLER spoke with daughter, Areli [phone] she agreeable to [place] [phone]. TYLER left message for Martha, admission director at [facility]. ?? SPECIALIST SPECIALIST SPECIALIST SPECIALIST * Plan of Care - Marie Pagan RN - 08/13/2021 3:28 AM CST Goals: Clinical Goals for the Shift: Bg WNL, VSS, pt free from falls Summary: VSS, pt hypertensive, but within pt's baseline. BG 153, 1 unit of SSI given with nightly scheduled insulin. Pt c/o right foot pain t/w prn tylenol. Pt ambulated to bathroom twice and tolerated it well. Tele continued and pt NSR per tele. Pt resting with call light in reach. Problem: Lack of Knowledge: Goal: Ability to [...] of discharge needs will improve Outcome: Progressing SPECIALIST * Plan of Care - Ngozi Albright RN - 08/12/2021 5:38 PM CST Goals: Clinical Goals for the Shift: monitor BG, CHG bath Summary: Pt BG remained WDL. Pt ambulated to bathroom multiple times throughout shift with x1 contact guard. CHG bath given. Pt AxOx4 at beginning of shift; end of shift pt showing signs of visible hallucinations, however, AxOx3. Will continue to monitor. Problem: Lack of Knowledge: Goal: Ability to [...] of discharge needs will improve Outcome: Progressing SPECIALIST * Plan of Care - Dagmar Parra RN - 08/12/2021 1:52 PM RAIL SPECIALIST CM left message for daughter, Areli [phone] [facility] [phone] [place] able to [place] patient. Daughter would like patient to go to [facility]. CM spoke with unit assistant at [facility] [phone]. Natacha, the admission director is off today. CM message with Kathy admission director at [facility] [phone]. Daughter requested wheeled walker CM requested order from MD via secure chat. Referral placed in [facility] with [facility] for a wheeled walker. SPECIALIST SPECIALIST SPECIALIST SPECIALIST SPECIALIST * Plan of Care - Marla Walker - 08/12/2021 3:26 AM CST Problem: Lack of Knowledge: Goal: Ability [...] Goals: Clinical Goals for the Shift: VSS, free from any fall or injuries. monitor BG Summary: A&O x 4. Soft blood pressure noted. BP 117/46 mmHg. MD Paula Velazquez notified. Blood glucose at bedtime was 122 mg/dL. Denies any pain. Remained free from any fall or injuries. Will continue to monitor. SPECIALIST * Plan of Care - Carolin Chambers RN - 08/11/2021 3:33 PM CST Problem: Lack of Knowledge: Goal: [...] Progressing Goals: Clinical Goals for the Shift: VSS; remain free from falls; monitor Bg Summary: Vital signs stable. Patient remained free from falls. Patient's BG wnl so far this shift- will check again before dinner. Patient rested in bed throughout most of shift. Currently sitting on side of bed visiting with daughter. SPECIALIST * Plan of Care - Marla Walker - 08/11/2021 4:07 AM CST Problem: Lack of Knowledge: Goal: Ability [...] Goals: Clinical Goals for the Shift: VSS, free from any fall or injuries, monitor BG Summary: Vital signs stable. A&O x 4. Blood glucose at bedtime was 90 mg/dL, snacks given and repeat blood glucose was 109 mg/dL. Denies any pain. Slept well. Remained free from any fall or injuries. Will continue to monitor. SPECIALIST * Plan of Care - Carolin Chambers RN - 08/10/2021 3:13 PM CST Problem: Lack of Knowledge: Goal: [...] Progressing Goals: Clinical Goals for the Shift: VSS; remain free from falls Summary: Vital signs stable, pt denied pain. Patient remained free from falls. Patient up in chair multiple time throughout shift. Patient currently resting in bed with call light in reach. SPECIALIST * Plan of Care - Shereen Martin RN - 08/10/2021 3:08 AM CST Goals: Clinical Goals for the Shift: VSS, safe free from fall, restful night Summary: VSS, initial night time glucose 75mg/dL- encouraged to snack- consumed apple juice and icecream improved to 124mg/dl. Resting comfortably. Refused CHG bath. Continuity of nursing care. Assessment of patient???s baseline is established at the beginning of the shift in flowsheets. Patient reassessed per order, unexpected findings and/or deviations from baseline are captured in flowsheets. Frequent safety checks and comfort rounds provided. Orders and/or nursing care completed as indicated. Patient monitored for response to interventions and treatments as documented in flowsheets.. Plan of care discussed with patient/international representative, including as it relates to Principal Problem: STEFANO (acute kidney injury) (CMS/HCC) ([facility]) Patient progressing. Clinical goals for the shift safety. Education provided includes Discharge Planning. Patient and/or international representative Verbalizes understanding. Will continue to monitor. SPECIALIST * Plan of Care - Carolin Chambers RN - 08/09/2021 3:38 PM CST Problem: Lack of Knowledge: Goal: [...] Progressing Goals: Clinical Goals for the Shift: VSS; remain free from; monitor BG Summary: Vital signs stable. Patient remained free from falls throughout shift. Patient's BG wnl so far thisshift- will check again before dinner. Patient up to chair mutiple times throughout shift. SPECIALIST * Provider Query - Tati Duvall MD - 08/09/2021 10:03 AM CST Please further Specify the patient???s Renal Status and document in the medical record and on the form below. _x__Acute Renal Failure ___Acute Renal Failure on Chronic Kidney Disease (CKD), specify stage below ___Acute Kidney Injury due to drugs, biologic substance or toxin, specify below ___Chronic Kidney Disease (CKD), specify stage below ___Findings clinically insignificant ___Other, specify below ___Clinically unable to determine Additional Provider Response: Clinical Indicators/Treatments: H/P-Recently admitted for STEFANO, likely still recovering from STEFANO, hx CKD, baseline unclear but ~1.4-1.5 AUG 21: L R/L bolus Daily labs, eval and AVOID NEPHROTOXINS Ref. Range 08/05/2021 pre-ADMIT 08/07/2021 ADMIT 08/08/2021 21:14 Creatinine Latest Ref Range: 0.60 - 1.10 mg/dL 2.20 (H) GFR=22 2.36 (H) GFR=22 1.72 (H) GFR=32 National Kidney Foundation KDIGO Conference Definition of STEFANO STEFANO Any of the following: Increase in SCr by >=0.3 mg/dl within 48 hours* Increase in SCr to >=1.5 times baseline, which is known or presumed to have occurred within the prior 7 days Urine volume < 0.5 ml/kg/h for 6 hours *Once the creatinine is above 3 mg/dL, the SCr increase by >=0.3 becomes less significant If provider believes patient has STEFANO in the absence of above clinical indicators, please document rationale and clinical impression in detail CKD stage Definition (National Kidney Disease Foundation) Stage 1: GFR greater than or equal to 90 Stage 2: GFR 60-89 Stage 3: GFR 30-59 Stage 3a: GFR 45-59 Stage 3b: GFR 30-44 Stage 4: GFR 15-29 Stage 5: GFR less than 15 or Dialysis Use of terms such as likely, suspected, possible, or probable (associated with a specific diagnosisthat is being evaluated, monitored, or treated as if it exists) are acceptable and can be coded in the inpatient setting when documented at the time of discharge. This documentation will become part of the patient???s medical record. Thank you! Rita Huntley RN [employer] Documentation [employer] [phone] [email or web address] SPECIALIST * Plan of Care - Shereen Martin RN - 08/09/2021 4:21 AM CST Goals: Clinical Goals for the Shift: VSS, stable BG, Pain control, safe free from falls Summary: VSS. Stable night time blood sugar. Resting comfortably. Leg pain improved with tylenol prn. A&Ox2- reoriented being in the hospital. Wanders in the room. Kept safe free from falls. Continuity of nursing care. Assessment of patient???s baseline is established at the beginning of the shift in flowsheets. Patient reassessed per order, unexpected findings and/or deviations from baseline are captured in flowsheets. Frequent safety checks and comfort rounds provided. Orders and/or nursing care completed as indicated. Patient monitored for response to interventions and treatments as documented in flowsheets.. Plan of care discussed with patient/international representative, Patient progressing. Clinical goals for the shift safety. Education provided includes Discharge Planning, Fall Prevention, and Self-Care: . Patient and/or international representative Needs reinforcement. Will continue to monitor. SPECIALIST * Hospital Course - Kenny Dixon MD - 08/08/2021 11:44 AM RAIL SPECIALIST #Fatigue Pt reported decreased energy, poor appetite, and poor PO intake for 1 month. Has been experiencing episodes of legs giving out during this time, discussed below. These symptoms began around the time she was switched from Risperdal to Haldol on 07/01/21 for her schizophrenia. Last Haldol dose 08/06.Her mental status was alert and oriented to person, place, and situation, but not time, which is her baseline. Workup only notable for mildly elevated WBC 12.4, with no infectious symptoms and no meningismus. Urinalysis was noninfectious, Chest X ray was clear, patient had no visible wounds, blood cultures pending. Risperdal and Lyrica, were initially held due to concern for sedation, however were restarted several days prior to discharge without sedating effects witnessed. Patient's fatigue was attributed to recent change in medication from risperdal to haldol. Physical Therapy saw patient and recommended placement at a Care Home Facility. #Falls #Neuropathy Pt has known diabetic neuropathy. During the past month, reports spells of lightheadedness/dizziness and legs giving out causing her to fall or slump to the floor. Denied syncope, loss of consciousness, traumatic fall, head strike, bladder/bowel incontinence, saddle anesthesia, back pain. Due to history of leg weakness, CT lumbar spine was performed which showed mild degenerative changes of thelumbar spine without significant spinal canal stenosis identified, an inferior endplate irregularity and sclerosis of L4 vertebral body that was favored to be degenerative. Orthostatic vitals were borderline positive due to drop in diastolic blood pressure by 10 and lightheadedness. Patient was enco uraged to have adequate oral intake.Capsaicin cream was started for patient's diabetic neuropathy, which helped with her pain. Patient was prescribed a walker upon discharge. #CKD Patient presented with Creatinine of 2.36, unclear baseline, though Creatinine peaked at 3.96 at recent Outside Hospital admission . Patient required a straight catheterization once. Urinalysis showed glucose, protein, hyaline casts. She received IV fluids in the Emergency Department. Patient's kidney function was thought to be likely recovering from recent Acute Kidney Injury. She had adequate urine output, and Creatinine improved to 1.65 4 days prior to discharge. #Type 2 Diabetes Mellitus Patient reportedly taking 15 units of lantus twice daily at home. A1c of 8.0. Patient received 15 units lantus nightly and 5 units three-times daily prior to meals along with a sliding scale with adequate blood glucose control while admitted. This regimen was recommended to be continued on discharge to Care Home Facillity. #Hypertension Continued home amlodipine. Held hydrochlorothiazide given concern for Acute Kidney Injury, and continued to hold upon discharge with plans for patient to follow up with Primary Care Physician regarding whether to restart hydrochlorothiazide. SPECIALIST SPECIALIST SPECIALIST SPECIALIST SPECIALIST SPECIALIST SPECIALIST * Plan of Care - Sarah Shine RN - 08/08/2021 10:40 AM CST CM unable to interview patient at this time. CM to attempt at later time/date. CM to follow for d/cplanning and referrals as needed. If needed, please contact. My contact information can be found under treatment team in [facility]. ALIREZA Smithcoffee host SPECIALIST * Plan of Care - Latosha Alcaraz - 08/08/2021 10:18 AM CST Problem: Lack of Knowledge: Goal: Ability [...] Goals: Clinical Goals for the Shift: VSS, pain control, free from fall Summary: AO x 3-4. VS and BG stable. Provided safety and comfort measures. Bladder scanned and noted >550ml, encouraged to void, urine output 350ml. Post void bladder scanned, 140 ml noted. Voiding freely in the afternoon. Pt able to ambulate in the room and going to the bathroom steadily. CHG bath given. Kept rested. Pt remained free from fall. SPECIALIST SPECIALIST * Plan of Care - Ismael Gillespie RN - 08/08/2021 4:25 AM CST Problem: Lack of Knowledge: Goal: Ability [...] Progressing Goals: Clinical Goals for the Shift: free of falls, adeqaute pain control, vss, restfulnight and compliantto nursing care Summary: patient arrive on unit at 0220. She was free of falls, adeqaute pain control, vss and compliant to nursing care. She remains A0x2-3 with moments of confusion but follow directions accordingly, will continue to monitor. SPECIALIST * ED Re-evaluation Note - Yordy Julio MD - 08/07/2021 10:38 PM RAIL SPECIALIST ED Re-evaluation TRANSITION OF CARE: I, Yordy Julio MD, am taking signout from Dr. Ding (resident) and assuming care of thispatient. I have reviewed all pertinent vital signs, allergies, and history available in the chart. Summary: 70 y.o. female with PMH of dementia schizophrenia on haloperidol, DM, HTN, HLD and CKD presents with generalized weakness and AMS. Sleepy, frequent episodes of dosing off. Recent admissionat [facility] for similar sxs and STEFANO. Pending: Re-eval Dispo: Pending re-eval. Likely admit. ED Course as of 08/08/21 0018 Time: 08/07 2202 Value: WBC(!): 12.5 Comment: (Reviewed) By: Larry Ding MD Time: 08/07 2308 Comment: Attending signout: 70 yo F with dementia, schizophrenia on risperdal with recent admissionto OSH with STEFANO here with vague weakness, sleepiness, confusion. Well appearing and Aox4 here. Slight STEFANO here, pending UA, CXR. By: Dulce Moses MD Time: 08/08 15 Comment: Signed out medicine By: Yordy Julio MD Ruggeri, Jeffrey Scott, MD Resident 08/08/21729 SPECIALIST documented in this encounter Plan of Treatment Upcoming Encounters Date Type Department Care Team (Latest Contact Info) Description 07/13/2024 9:00 AM RAIL SPECIALIST Hospital Encounter [facility] [address] [place] [address] Jaya Grier MD [address] [place] [address] [address] 07/13/2024 9:00 AM RAIL SPECIALIST - 07/13/2024 9:30 AM RAIL SPECIALIST Surgery [facility] [address] [place] [address] Jaya Grier MD [address] [place] [address] ESOPHAGOGASTRODUODENOSCOPY Scheduled Procedures Name Priority Associated Diagnoses Date/Ti me ESOPHAGOGASTRODUODENOSCOPY Anemia, unspecified type Gastritis without bleeding, unspecified chronicity, unspecified gastritis type 07/13/2024 9:00 AM RAIL SPECIALIST COLONOSCOPY Iron deficiency anemia due to chronic blood loss Scheduled Referrals Name Type Priority Associated Diagnoses Order Schedule Ambulatory referral to Nephrology Outpatient Referral Routine Stage 3b chronic kidney disease (HCC) Expected: 08/27/2021 (Approximate), Expires: 08/13/2022 documented as of this encounter Procedures Procedure Name Priority Date/Time Associated Diagnosis Comments POCT GLUCOSE DEVICE Routine 08/14/2021 5 :11 PM RAIL SPECIALIST POCT GLUCOSE DEVICE Routine 08/14/2021 1 1:18 AM RAIL SPECIALIST POCT GLUCOSE DEVICE Routine 08/14/2021 6 :55 AM RAIL SPECIALIST POCT GLUCOSE DEVICE Routine 08/13/2021 7 :58 PM RAIL SPECIALIST POCT GLUCOSE DEVICE Routine 08/13/2021 5 :03 PM RAIL SPECIALIST INFLUENZA A/B, RSV, AND COVID-19 PCR Routine 08/13/2021 1:37 PM RAIL SPECIALIST POCT GLUCOSE DEVICE Routine 08/13/2021 1 1:42 AM RAIL SPECIALIST POCT GLUCOSE DEVICE Routine 08/13/2021 7 :50 AM RAIL SPECIALIST POCT GLUCOSE DEVICE Routine 08/12/2021 7 :58 PM RAIL SPECIALIST POCT GLUCOSE DEVICE Routine 08/12/2021 4 :56 PM RAIL SPECIALIST POCT GLUCOSE DEVICE Routine 08/12/2021 1 1:45 AM RAIL SPECIALIST POCT GLUCOSE DEVICE Routine 08/12/2021 7 :41 AM RAIL SPECIALIST POCT GLUCOSE DEVICE Routine 08/11/2021 8 :34 PM RAIL SPECIALIST POCT GLUCOSE DEVICE Routine 08/11/2021 5 :11 PM RAIL SPECIALIST POCT GLUCOSE DEVICE Routine 08/11/2021 1 1:30 AM RAIL SPECIALIST POCT GLUCOSE DEVICE Routine 08/11/2021 7 :46 AM RAIL SPECIALIST POCT GLUCOSE DEVICE Routine 08/10/2021 1 0:20 PM RAIL SPECIALIST POCT GLUCOSE DEVICE Routine 08/10/2021 9 :45 PM RAIL SPECIALIST POCT GLUCOSE DEVICE Routine 08/10/2021 4 :55 PM RAIL SPECIALIST POCT GLUCOSE DEVICE Routine 08/10/2021 1 1:24 AM RAIL SPECIALIST POCT GLUCOSE DEVICE Routine 08/10/2021 7 :40 AM RAIL SPECIALIST EGFR Routine 08/09/2021 10:02 PM RAIL SPECIALIST DIFFERENTIAL AUTO Routine 08/09/2021 10: 02 PM RAIL SPECIALIST CBC WITH AUTO DIFFERENTIAL Routine 08/09/2021 10:02 PM RAIL SPECIALIST BASIC METABOLIC PANEL Routine 08/09/2021 10:02 PM RAIL SPECIALIST POCT GLUCOSE DEVICE Routine 08/09/2021 1 0:01 PM RAIL SPECIALIST POCT GLUCOSE DEVICE Routine 08/09/2021 9 :07 PM RAIL SPECIALIST POCT GLUCOSE DEVICE Routine 08/09/2021 5 :08 PM RAIL SPECIALIST POCT GLUCOSE DEVICE Routine 08/09/2021 1 1:33 AM RAIL SPECIALIST POCT GLUCOSE DEVICE Routine 08/09/2021 7 :38 AM RAIL SPECIALIST DRUGS OF ABUSE SCREEN, URINE WITH REFLEX CONFIRMATION Timed 08/09/2021 5:41 AM RAIL SPECIALIST EGFR Routine 08/08/2021 9:14 PM RAIL SPECIALIST DIFFERENTIAL AUTO Routine 08/08/2021 9:1 4 PM RAIL SPECIALIST CBC WITH AUTO DIFFERENTIAL Routine 08/08/2021 9:14 PM RAIL SPECIALIST BASIC METABOLIC PANEL Routine 08/08/2021 9:14 PM RAIL SPECIALIST POCT GLUCOSE DEVICE Routine 08/08/2021 9 :03 PM RAIL SPECIALIST POCT GLUCOSE DEVICE Routine 08/08/2021 5 :02 PM RAIL SPECIALIST POCT GLUCOSE DEVICE Routine 08/08/2021 4 :49 PM RAIL SPECIALIST POCT GLUCOSE DEVICE Routine 08/08/2021 1 1:25 AM RAIL SPECIALIST RPR Timed 08/08/2021 9:01 AM RAIL SPECIALIST POCT GLUCOSE DEVICE Routine 08/08/2021 7 :[address] LUMBAR SPINE WO CONTRAST IP Routine 08/08/2021 4:02 AM RAIL SPECIALIST POCT GLUCOSE DEVICE Routine 08/08/2021 3 :19 AM RAIL SPECIALIST BLOOD CULTURE STAT 08/08/2021 3:15 AM RAIL SPECIALIST BLOOD CULTURE STAT 08/08/2021 3:15 AM RAIL SPECIALIST ECG 12-LEAD Routine 08/08/2021 2:48 AM RAIL SPECIALIST URINALYSIS AND REFLEX TO MICROSCOPIC AND CULTURE STAT 08/08/2021 12:05 AM RAIL SPECIALIST URINALYSIS, MICROSCOPIC ONLY STAT 08/08/2021 12:05 AM RAIL SPECIALIST INFLUENZA A/B, RSV, AND COVID-19 PCR Routine 08/07/2021 11:22 PM RAIL SPECIALIST XR CHEST PA LATERAL 2 VIEWS ED 08/07/2021 11:06 PM RAIL SPECIALIST POCT GLUCOSE DEVICE Routine 08/07/2021 1 1:03 PM RAIL SPECIALIST EGFR STAT 08/07/2021 10:17 PM RAIL SPECIALIST DIFFERENTIAL AUTO STAT 08/07/2021 10: 17 PM RAIL SPECIALIST CBC WITH AUTO DIFFERENTIAL STAT 08/07/2021 10:17 PM RAIL SPECIALIST HEPATIC FUNCTION PANEL STAT 08/07/2021 10:17 PM RAIL SPECIALIST BASIC METABOLIC PANEL STAT 08/07/2021 10:17 PM RAIL SPECIALIST POCT GLUCOSE DEVICE Routine 08/07/2021 4 :37 PM RAIL SPECIALIST POCT GLUCOSE DEVICE Routine 08/07/2021 4 :28 PM RAIL SPECIALIST documented in this encounter Results * POCT glucose (08/14/2021 5:11 PM RAIL SPECIALIST) Glucose, POC 176 70 - 199 mg/dL [facility] Blood 08/14/2021 5:11 PM RAIL SPECIALIST 08/14/2021 5:11 PM RAIL SPECIALIST us Tati Duvall MD LAB POCT ORDERABLES - DE VICE Final Result [facility] [place] [address] * POCT glucose (08/14/2021 11:18 AM RAIL SPECIALIST) Glucose, POC 133 70 - 199 mg/dL [facility] Blood 08/14/2021 11:1 8 AM RAIL SPECIALIST 08/14/2021 11:18 AM RAIL SPECIALIST us Tati Duvall MD LAB POCT ORDERABLES - DE VICE Final Result Performing Organization Address [facility] Co de Phone Number [facility] [place] [address] * POCT glucose (08/14/2021 6:55 AM RAIL SPECIALIST) Glucose, POC 156 70 - 199 mg/dL [facility] Blood 08/14/2021 6:55 AM RAIL SPECIALIST 08/14/2021 6:55 AM RAIL SPECIALIST us Tati Duvall MD LAB POCT ORDERABLES - DE VICE Final Result Performing Organization Address [facility]/ZIP Co de Phone Number [facility] [place] [address] * POCT glucose (08/13/2021 7:58 PM RAIL SPECIALIST) Glucose, POC 180 70 - 199 mg/dL [facility] Blood 08/13/2021 7:58 PM RAIL SPECIALIST 08/13/2021 7:58 PM RAIL SPECIALIST us Tati Duvall MD LAB POCT ORDERABLES - DE VICE Final Result Performing Organization Address City/[facility] [place] [address] * (ABNORMAL) POCT glucose (08/13/2021 5:03 PM RAIL SPECIALIST) Glucose, POC 230(H) 70 - 199 mg/dL [facility] Blood 08/13/2021 5:03 PM RAIL SPECIALIST 08/13/2021 5:03 PM RAIL SPECIALIST Tati Duvall MD LAB POCT ORDERABLES - DE VICE Final Result Performing Organization Address City/[facility] Co de Phone Number [facility] Department [place] [address] * (ABNORMAL) Influenza A/B, RSV, and COVID-19 PCR Nasopharyngeal (08/13/2021 1:37 PM RAIL SPECIALIST) COVID-19 RNA Positive(A) Negative [facility] Influenza A RNA Negative Negative [facility] Influenza B RNA Negative Negative [facility] RSV RNA Negative Negative [facility] Comment: Interpretive data: Testing performed by [facility] ([phone]). This test is performed using the [employer] Xpert Xpress CoV-2/Flu/RSV plus assay. This is a multiplex, real-time reverse transcriptase PCR assay intended for the qualitative detection of nucleic acid from SARS-CoV-2, influenza A, influenza B, and respiratory syncytial virus. This assay has been reviewed by the FDA for Emergency Use Authorization (EUA). The performance characteristics have been verified by the [facility]. Results must be considered in the clinical context, and a negative result does not rule out infection. Interpretive Data last revised 2021. First COVID-19 test? No [facility] Employeed in healthcare? No [facility] status? No [facility] Group care resident? No [facility] Hospitalized? Yes [facility] Is patient in ICU? No [facility] Symptomatic as defined by CDC? No [facility] Nasopharyngeal 08/13/2021 1: 37 PM RAIL SPECIALIST 08/13/2021 3:10 PM RAIL SPECIALIST Narrative [facility] - 08/13/2021 4:11 PM RAIL SPECIALIST Reason for testing?->Placement in post-acute care setting Known exposure to confirmed or suspected COVID-19 case?->No Tati Duvall MD LAB MICROBIOLOGY - GENER AL ORDERABLES Final Result Performing Organization Address [facility]/ZIP Co de Phone Number [facility] [place] [address] * (ABNORMAL) POCT glucose (08/13/2021 11:42 AM RAIL SPECIALIST) Glucose, POC 254(H) 70 - 199 mg/dL [facility] Blood 08/13/2021 11:4 2 AM RAIL SPECIALIST 08/13/2021 11:42 AM RAIL SPECIALIST Tati Duvall MD LAB POCT ORDERABLES - DE VICE Final Result [facility] [place] [address] * POCT glucose (08/13/2021 7:50 AM RAIL SPECIALIST) Glucose, POC 173 70 - 199 mg/dL [facility] Blood 08/13/2021 7:50 AM RAIL SPECIALIST 08/13/2021 7:50 AM RAIL SPECIALIST Tati Duvall MD LAB POCT ORDERABLES - DE VICE Final Result [facility] [place] [address] * POCT glucose (08/12/2021 7:58 PM RAIL SPECIALIST) Glucose, POC 153 70 - 199 mg/dL [facility] Blood 08/12/2021 7:58 PM RAIL SPECIALIST 08/12/2021 7:58 PM RAIL SPECIALIST Tati Duvall MD LAB POCT ORDERABLES - DE VICE Final Result [facility] [place] [address] * POCT glucose (08/12/2021 4:56 PM RAIL SPECIALIST) Glucose, POC 192 70 - 199 mg/dL [facility] Blood 08/12/2021 4:56 PM RAIL SPECIALIST 08/12/2021 4:56 PM RAIL SPECIALIST Tati Duvall MD LAB POCT ORDERABLES - DE VICE Final Result Performing Organization Address City/[facility] Co de Phone Number [facility] [place] [address] * (ABNORMAL) POCT glucose (08/12/2021 11:45 AM RAIL SPECIALIST) Glucose, POC 220(H) 70 - 199 mg/dL [facility] Blood 08/12/2021 11:4 5 AM RAIL SPECIALIST 08/12/2021 11:45 AM RAIL SPECIALIST Tati Duvall MD LAB POCT ORDERABLES - DE VICE Final Result Performing Organization Address City/[facility] [place] [address] * (ABNORMAL) POCT glucose (08/12/2021 7:41 AM RAIL SPECIALIST) Glucose, POC 211(H) 70 - 199 mg/dL [facility] Blood 08/12/2021 7:41 AM RAIL SPECIALIST 08/12/2021 7:41 AM RAIL SPECIALIST Tati Duvall MD LAB POCT ORDERABLES - DE VICE Final Result Performing Organization Address [facility] [place] [address] * POCT glucose (08/11/2021 8:34 PM RAIL SPECIALIST) Glucose, POC 122 70 - 199 mg/dL [facility] Blood 08/11/2021 8:34 PM RAIL SPECIALIST 08/11/2021 8:34 PM RAIL SPECIALIST us Tati Duvall MD LAB POCT ORDERABLES - DE VICE Final Result Performing Organization Address [facility] Co ma Phone Number [facility] [place] [address] * POCT glucose (08/11/2021 5:11 PM RAIL SPECIALIST) Glucose, POC 198 70 - 199 mg/dL [facility] Blood 08/11/2021 5:11 PM RAIL SPECIALIST 08/11/2021 5:11 PM RAIL SPECIALIST us Tati Duvall MD LAB POCT ORDERABLES - DE VICE Final Result Performing Organization Address [facility] Co ma Phone Number [facility] Department [place] [address] * POCT glucose (08/11/2021 11:30 AM RAIL SPECIALIST) Glucose, POC 143 70 - 199 mg/dL [facility] Blood 08/11/2021 11:3 0 AM RAIL SPECIALIST 08/11/2021 11:30 AM RAIL SPECIALIST us Tati Duvall MD LAB POCT ORDERABLES - DE VICE Final Result Performing Organization Address [facility] Co ma Phone Number [facility] [place] [address] * POCT glucose (08/11/2021 7:46 AM RAIL SPECIALIST) Glucose, POC 138 70 - 199 mg/dL [facility] Blood 08/11/2021 7:46 AM RAIL SPECIALIST 08/11/2021 7:46 AM RAIL SPECIALIST us Tati Duvall MD LAB POCT ORDERABLES - [place] [address] * POCT glucose (08/10/2021 10:20 PM RAIL SPECIALIST) Glucose, POC 109 70 - 199 mg/dL [facility] Blood 08/10/2021 10:2 0 PM RAIL SPECIALIST 08/10/2021 10:20 PM RAIL SPECIALIST Tati Duvall MD LAB POCT ORDERABLES - DE VICE Final Result Performing Organization Address [facility]/[place] [address] * POCT glucose (08/10/2021 9:45 PM RAIL SPECIALIST) Glucose, POC 90 70 - 199 mg/dL [facility] Blood 08/10/2021 9:45 PM RAIL SPECIALIST 08/10/2021 9:45 PM RAIL SPECIALIST Tati Duvall MD LAB POCT ORDERABLES - DE VICE Final Result Performing Organization Address City/[facility]/ZIP Co de Phone Number [facility] [place] [address] * POCT glucose (08/10/2021 4:55 PM RAIL SPECIALIST) Glucose, POC 128 70 - 199 mg/dL [facility] Blood 08/10/2021 4:55 PM RAIL SPECIALIST 08/10/2021 4:55 PM RAIL SPECIALIST Tati Duvall MD LAB POCT ORDERABLES - DE VICE Final Result Performing Organization Address City/[facility]/ZIP Co de Phone Number [facility] [place] [address] * POCT glucose (08/10/2021 11:24 AM RAIL SPECIALIST) Glucose, POC 141 70 - 199 mg/dL [facility] Blood 08/10/2021 11:2 4 AM RAIL SPECIALIST 08/10/2021 11:24 AM RAIL SPECIALIST Tati Duvall MD LAB POCT ORDERABLES - DE VICE Final Result Performing Organization Address [facility]/ZIP Co de Phone Number [facility] [place] [address] * POCT glucose (08/10/2021 7:40 AM RAIL SPECIALIST) Glucose, POC 109 70 - 199 mg/dL [facility] Blood 08/10/2021 7:40 AM RAIL SPECIALIST 08/10/2021 7:40 AM RAIL SPECIALIST Tati Duvall MD LAB POCT ORDERABLES - DE VICE Final Result Performing Organization Address [facility]/ZIP Co de Phone Number [facility] [place] [address] * (ABNORMAL) eGFR (08/09/2021 10:02 PM RAIL SPECIALIST) eGFR 33(L) 90 - 130 mL/min/1. 73 m2 [facility] Comment: Interpretive Data Reference Interval Normal [...] interpretive data was last reviewed 2021. Blood 08/09/2021 10:0 2 PM RAIL SPECIALIST 08/09/2021 10:17 PM RAIL SPECIALIST us Markie Demarco MD LAB BLOOD ORDERABLES Fi nal Result Performing Organization Address City/State/[facility] Co de Phone Number [facility] Department [place] [address] * (ABNORMAL) Differential, auto (08/09/2021 10:02 PM RAIL SPECIALIST) Neutrophil abs 5.8 1.7 - 6.5 K/cumm [facility] Imm gran abs 0.0 0.0 - 0.1 K/cumm [facility] Lymphocyte abs 3.4(H) 0.8 - 3.3 K/cumm [facility] Monocyte abs 0.7 0.2 - 0.8 K/cumm [facility] Eosinophil abs 0.2 0.0 - 0.5 K/cumm [facility] Basophil abs 0.0 0.0 - 0.1 K/cumm [facility] Neutrophil pct 57.3 % [facility] Comment: Interpretive Data Percent cell count reference ranges are not reported, since discordance with absolute values may lead to misinterpretation of CBC data. Current Interpretive Data was last revised on 2017. Imm gran pct 0.4 % [facility] Comment: Interpretive Data Percent cell count reference ranges are not reported, since discordance with absolute values may lead to misinterpretation of CBC data. Current Interpretive Data was last revised on 2017. Lymphocyte pct 33.4 % [facility] Comment: Interpretive Data Percent cell count reference ranges are not reported, since discordance with absolute values may lead to misinterpretation of CBC data. Current Interpretive Data was last revised on 2017. Monocyte pct 6.5 % [facility] Comment: Interpretive Data Percent cell count reference ranges are not reported, since discordance with absolute values may lead to misinterpretation of CBC data. Current Interpretive Data was last revised on 2017. Eosinophil pct 2.0 % [facility] Comment: Interpretive Data Percent cell count reference ranges are not reported, since discordance with absolute values may lead to misinterpretation of CBC data. Current Interpretive Data was last revised on 2017. Basophil pct 0.4 % [facility] Comment: Interpretive Data Percent cell count reference ranges are not reported, since discordance with absolute values may lead to misinterpretation of CBC data. Current Interpretive Data was last revised on 2017. Blood 08/09/2021 10:0 2 PM RAIL SPECIALIST 08/09/2021 10:17 PM RAIL SPECIALIST us Markie Demarco MD LAB BLOOD ORDERABLES nal Result [facility] Department [place] [address] * (ABNORMAL) Basic metabolic panel (08/09/2021 10:02 PM RAIL SPECIALIST) Sodium 143 135 - 145 mmol/L [facility] Potassium, pl 4.0 3.3 - 4.9 mmol/L [facility] Chloride 111(H) 97 - 110 mmol/L [facility] CO2 22 22 - 32 mmol/L [facility] Anion gap 10 2 - 15 mmol/L [facility] BUN 29(H) 8 - 25 mg/dL [facility] Creatinine 1.65(H) 0.60 - 1.10 mg/dL [facility] Glucose 123 70 - 199 mg/dL [facility] Comment: Interpretive Data Fasting glucose >/= [...] 2017. Calcium 9.5 8.5 - 10.3 mg/dL [facility] Blood 08/09/2021 10:0 2 PM RAIL SPECIALIST 08/09/2021 10:17 PM RAIL SPECIALIST us Markie Demarco MD LAB BLOOD ORDERABLES Fi nal Result [facility] [place] [address] * (ABNORMAL) CBC with auto differential (08/09/2021 10:02 PM RAIL SPECIALIST) WBC 10.1(H) 3.8 - 9.9 K/cumm [facility] Hgb 8.7(L) 11.9 - 15.5 g/dL [facility] Hct 28.4(L) 35.6 - 45.5 % [facility] Plt 294 150 - 400 K/cumm [facility] MPV 10.8 9.1 - 12.3 fL [facility] RBC 3.05(L) 3.90 - 5.20 M/cumm [facility] MCV 93.1 81.3 - 96.4 fL [facility] MCH 28.5 27.1 - 33.3 pg [facility] MCHC 30.6(L) 32.3 - 35.7 g/dL [facility] RDW CV 15.3(H) 11.1 - 14.9 % [facility] RDW SD 52.3(H) 35.7 - 48.1 fL [facility] NRBC abs 0.00 0.00 - 0.01 K/cumm [facility] Blood 08/09/2021 10:0 2 PM RAIL SPECIALIST 08/09/2021 10:17 PM RAIL SPECIALIST Markie Demarco MD LAB BLOOD ORDERABLES Fi nal Result Performing Organization Address [facility] Co de Phone Number [facility] [place] [address] * POCT glucose (08/09/2021 10:01 PM RAIL SPECIALIST) Glucose, POC 124 70 - 199 mg/dL [facility] Blood 08/09/2021 10:0 1 PM RAIL SPECIALIST 08/09/2021 10:01 PM RAIL SPECIALIST Tati Duvall MD LAB POCT ORDERABLES - DE VICE Final Result Performing Organization Address [facility] Co ma Phone Number [facility] [place] [address] * POCT glucose (08/09/2021 9:07 PM RAIL SPECIALIST) Glucose, POC 75 70 - 199 mg/dL [facility] Blood 08/09/2021 9:07 PM RAIL SPECIALIST 08/09/2021 9:07 PM RAIL SPECIALIST Tati Duvall MD LAB POCT ORDERABLES - DE VICE Final Result Performing Organization Address [facility] [place] [address] * POCT glucose (08/09/2021 5:08 PM RAIL SPECIALIST) Glucose, POC 151 70 - 199 mg/dL [facility] Blood 08/09/2021 5:08 PM RAIL SPECIALIST 08/09/2021 5:08 PM RAIL SPECIALIST Tati Duvall MD LAB POCT ORDERABLES - DE VICE Final Result Performing Organization Address City/[facility] Co de Phone Number [facility] [place] [address] * POCT glucose (08/09/2021 11:33 AM RAIL SPECIALIST) Glucose, POC 115 70 - 199 mg/dL [facility] Blood 08/09/2021 11:3 3 AM RAIL SPECIALIST 08/09/2021 11:33 AM RAIL SPECIALIST Tati Duvall MD LAB POCT ORDERABLES - DE VICE Final Result Performing Organization Address [facility] [place] [address] * POCT glucose (08/09/2021 7:38 AM RAIL SPECIALIST) Glucose, POC 113 70 - 199 mg/dL [facility] Blood 08/09/2021 7:38 AM RAIL SPECIALIST 08/09/2021 7:38 AM RAIL SPECIALIST Tati Duvall MD LAB POCT ORDERABLES - DE VICE Final Result Performing Organization Address [facility] Co ma Phone Number [facility] [place] [address] * Drugs of Abuse Screen, Urine with Reflex Confirmation (08/09/2021 5:41 AM RAIL SPECIALIST) Amphetamine, ur Not Detected CutOff 500ng/mL [facility] Comment: Interpretive Data - Amphetamines: ??Samples containing greater than 500 ng/mL d-methamphetamine ??or other cross-reacting amphetamine compounds are reported as positive. ??Amphetamine immunoassays are subject to significant false positive rates due to cross-reactivity of non-amphetamine drugs. Current Interpretive Data was last reviewed 2018. Barbiturates, ur Not Detected CutOff 200ng/mL [facility] Comment: Interpretive Data - Barbiturates: ??Samples containing greater than 200 ng/mL secobarbital or other cross-reacting barbiturate compounds are reported as positive. ??False positive and false negative results are possible. Current Interpretive Data was last reviewed 2018. Benzodiazepines, ur Not Detected CutOff 100ng/mL [facility] Comment: Interpretive Data - Benzodiazepines: ??Samples containing greater than 100 ng/mL nordiazepam or other cross-reacting compounds are reported as positive. ?? False positive and false negative results are possible. ?? Current Interpretive Data was last reviewed 2018. Cannabinoids, ur Not Detected CutOff 50 ng/mL [facility] Cocaine, ur Not Detected CutOff 150ng/mL [facility] Comment: Interpretive Data - Cocaine: ??Samples containing greater than 150 ng/mL benzoylecgonine or other cross-reacting compounds are reported as positive. False positive and false negative results are possible. Current Interpretive Data was last reviewed 2018. Fentanyl, Ur Not Detected Cutoff 1 ng/mL [facility] Comment: Interpretive Data - Fentanyls: ??Samples containing greater than 1 ng/mL fentanyl or other cross-reacting fentanyl compounds are reported as detected. ??False positive and false negative results are possible. Current Interpretive Data was last reviewed 2019. Methadone, ur Not Detected CutOff 300ng/mL [facility] Comment: Interpretive Data - Methadone: ??Samples containing greater than 300 ng/mL d,l-methadone or other cross-reacting compounds are reported as positive. ??False positive and false negative results are possible. Current Interpretive Data was last reviewed 2018. Opiates, ur Not Detected CutOff 300ng/mL [facility] Comment: Interpretive Data - Opiates: ??Samples containing greater than 300 ng/mL morphine or other cross-reacting compounds are reported as positive. ??False positive and false negative results are possible. Current Interpretive Data was last reviewed 2018. Oxycodone, ur Not Detected CutOff 100ng/mL [facility] Comment: Interpretive Data - Oxycodone: ??Samples containing greater than 100 ng/mL oxycodone or other cross-reacting compounds are reported as positive. ??False positive and false negative results are possible. ?? Current Interpretive Data was last reviewed 2018. Phencyclidine, ur Not Detected CutOff 25 ng/mL [facility] Comment: Interpretive Data - Phencyclidine: ??Samples containing greater than 25 ng/mL phencyclidine or other cross-reacting compounds are reported as positive. ??False positive and false negative results are possible. ?? Current Interpretive Data was last reviewed 2018. Urine Creatinine 122 mg/dL [facility] Comment: Interpretive Data Urine Creatinine: < 10 mg/dL is extremely dilute = or > 10 but < 20 mg/dL is dilute = or > 20 mg/dL is normal Current Interpretive Data was last revised on 2017. Urine 08/09/2021 5:41 AM RAIL SPECIALIST 08/09/2021 6:38 AM RAIL SPECIALIST [facility]ative [facility] - 08/09/2021 7:12 AM RAIL SPECIALIST Drug of Abuse screening is performed by immunoassay for medical purposes only. ??This is not to be used for Pain Management purposes. ??If Detected, confirmation testing will be performed for Amphetamines, Cocaine, Fentanyl, Methadone, Opiates, Oxycodone or Phencyclidine. Tati Duvall MD LAB URINE ORDERABLES Fin al Result [facility] [place] [address] * (ABNORMAL) eGFR (08/08/2021 9:14 PM RAIL SPECIALIST) eGFR 32(L) 90 - 130 mL/min/1. [address] [facility] Comment: Interpretive Data Reference Interval Normal [...] interpretive data was last reviewed 2021. Blood 08/08/2021 9:14 PM RAIL SPECIALIST 08/08/2021 9:38 PM RAIL SPECIALIST us Markie Demarco MD LAB BLOOD ORDERABLES Fi nal Result [facility] [place] [address] * (ABNORMAL) Differential, auto (08/08/2021 9:14 PM RAIL SPECIALIST) Neutrophil abs 6.9(H) 1.7 - 6.5 K/cumm [facility] Imm gran abs 0.0 0.0 - 0.1 K/cumm [facility] Lymphocyte abs 3.0 0.8 - 3.3 K/cumm [facility] Monocyte abs 0.7 0.2 - 0.8 K/cumm [facility] Eosinophil abs 0.2 0.0 - 0.5 K/cumm [facility] Basophil abs 0.0 0.0 - 0.1 K/cumm [facility] Neutrophil pct 63.2 % [facility] Comment: Interpretive Data Percent cell count reference ranges are not reported, since discordance with absolute values may lead to misinterpretation of CBC data. Current Interpretive Data was last revised on 2017. Imm gran pct 0.4 % [facility] Comment: Interpretive Data Percent cell count reference ranges are not reported, since discordance with absolute values may lead to misinterpretation of CBC data. Current Interpretive Data was last revised on 2017. Lymphocyte pct 27.6 % [facility] Comment: Interpretive Data Percent cell count reference ranges are not reported, since discordance with absolute values may lead to misinterpretation of CBC data. Current Interpretive Data was last revised on 2017. Monocyte pct 6.5 % [facility] Comment: Interpretive Data Percent cell count reference ranges are not reported, since discordance with absolute values may lead to misinterpretation of CBC data. Current Interpretive Data was last revised on 2017. Eosinophil pct 1.9 % [facility] Comment: Interpretive Data Percent cell count reference ranges are not reported, since discordance with absolute values may lead to misinterpretation of CBC data. Current Interpretive Data was last revised on 2017. Basophil pct 0.4 % [facility] Comment: Interpretive Data Percent cell count reference ranges are not reported, since discordance with absolute values may lead to misinterpretation of CBC data. Current Interpretive Data was last revised on 2017. Blood 08/08/2021 9:14 PM RAIL SPECIALIST 08/08/2021 9:38 PM RAIL SPECIALIST us Markie Demarco MD LAB BLOOD ORDERABLES nal Result [facility] Department [place] [address] * (ABNORMAL) Basic metabolic panel (08/08/2021 9:14 PM RAIL SPECIALIST) Sodium 143 135 - 145 mmol/L [facility] Potassium, pl 4.3 3.3 - 4.9 mmol/L [facility] Chloride 110 97 - 110 mmol/L [facility] CO2 23 22 - 32 mmol/L [facility] Anion gap 10 2 - 15 mmol/L [facility] BUN 31(H) 8 - 25 mg/dL [facility] Creatinine 1.72(H) 0.60 - 1.10 mg/dL [facility] Glucose 151 70 - 199 mg/dL [facility] Comment: Interpretive Data Fasting glucose >/= [...] 2017. Calcium 9.4 8.5 - 10.3 mg/dL [facility] Blood 08/08/2021 9:14 PM RAIL SPECIALIST 08/08/2021 9:38 PM RAIL SPECIALIST us Markie Demarco MD LAB BLOOD ORDERABLES Fi nal Result [facility] [place] [address] * (ABNORMAL) CBC with auto differential (08/08/2021 9:14 PM RAIL SPECIALIST) Pathologist [facility] WBC 10.8(H) 3.8 - 9.9 K/cumm [facility] Hgb 8.7(L) 11.9 - 15.5 g/dL [facility] Hct 28.5(L) 35.6 - 45.5 % [facility] Plt 295 150 - 400 K/cumm [facility] MPV 10.6 9.1 - 12.3 fL [facility] RBC 3.01(L) 3.90 - 5.20 M/cumm [facility] MCV 94.7 81.3 - 96.4 fL [facility] MCH 28.9 27.1 - 33.3 pg [facility] MCHC 30.5(L) 32.3 - 35.7 g/dL [facility] RDW CV 15.3(H) 11.1 - 14.9 % [facility] RDW SD 53.2(H) 35.7 - 48.1 fL [facility] NRBC abs 0.00 0.00 - 0.01 K/cumm [facility] Blood 08/08/2021 9:14 PM RAIL SPECIALIST 08/08/2021 9:38 PM RAIL SPECIALIST Markie Demarco MD LAB BLOOD ORDERABLES Fi nal Result Performing Organization Address City/[facility]/ZIP Co de Phone Number [facility] [place] [address] * POCT glucose (08/08/2021 9:03 PM RAIL SPECIALIST) Glucose, POC 159 70 - 199 mg/dL [facility] Blood 08/08/2021 9:03 PM RAIL SPECIALIST 08/08/2021 9:03 PM RAIL SPECIALIST Tati Duvall MD LAB POCT ORDERABLES - DE VICE Final Result Performing Organization Address City/[facility]/ZIP Co de Phone Number [facility] [place] [address] * POCT glucose (08/08/2021 5:02 PM RAIL SPECIALIST) Glucose, POC 112 70 - 199 mg/dL [facility] Blood 08/08/2021 5:02 PM RAIL SPECIALIST 08/08/2021 5:02 PM RAIL SPECIALIST Tati Duvall MD LAB POCT ORDERABLES - DE VICE Final Result Performing Organization Address [facility] Co de Phone Number [facility] [place] [address] * POCT glucose (08/08/2021 4:49 PM RAIL SPECIALIST) Glucose, POC 124 70 - 199 mg/dL [facility] Blood 08/08/2021 4:49 PM RAIL SPECIALIST 08/08/2021 4:49 PM RAIL SPECIALIST us Tati Duvall MD LAB POCT ORDERABLES - DE VICE Final Result Performing Organization Address City/[facility] Co de Phone Number [facility] Department [place] [address] * POCT glucose (08/08/2021 11:25 AM RAIL SPECIALIST) Glucose, POC 143 70 - 199 mg/dL [facility] Blood 08/08/2021 11:2 5 AM RAIL SPECIALIST 08/08/2021 11:25 AM RAIL SPECIALIST Tati Duvall MD LAB POCT ORDERABLES - DE VICE Final Result Performing Organization Address [facility] Co de Phone Number [facility] [place] [address] * RPR (08/08/2021 9:01 AM RAIL SPECIALIST) RPR Nonreactive Nonreactive [facility] Blood 08/08/2021 9:01 AM RAIL SPECIALIST 08/08/2021 9:17 AM RAIL SPECIALIST us Tati Duvall MD LAB MICROBIOLOGY - GENER AL ORDERABLES Final Result Performing Organization Address [facility] Co de Phone Number [facility] Department [place] [address] * POCT glucose (08/08/2021 7:45 AM RAIL SPECIALIST) Glucose, POC 152 70 - 199 mg/dL [facility] Blood 08/08/2021 7:45 AM RAIL SPECIALIST 08/08/2021 7:45 AM RAIL SPECIALIST us Markie Demarco MD LAB POCT ORDERABLES - D EVICE Final Result Performing Organization Address City/[facility] Co de Phone Number [facility] [place] [address] * CT Lumbar Spine WO Contrast (08/08/2021 4:02 AM RAIL SPECIALIST) Anatomical Region Laterality Modality Spine N/A Computed Tomogra phy 08/08/2021 10:1 4 AM RAIL SPECIALIST Impressions 08/08/2021 10:17 AM RAIL SPECIALIST Mild degenerative changes of the lumbar spine without significant spinal canal stenosis identified. Inferior endplate irregularity and sclerosis of L4 vertebral body is favored to be degenerative. ??If there is any concern for spinal infection, MRI of the lumbar spine could be obtained for further evaluation. Dictated by: Nikhil Lindo M.D. The radiology attending physician has personally reviewed this study, and had reviewed and/or edited this written report and agrees with it. Electronically signed by: Edgar Wilson 08/08/2021 10:17 AM RAIL SPECIALIST EXAMINATION: Computed tomography (CT) of the lumbar spine without contrast HISTORY: 70 year female with peripheral neuropathy with new retention and concern for spinal stenosis TECHNIQUE: CT of the lumbar spine was performed according to standard protocol without intravenous contrast. COMPARISON: None FINDINGS: Mild levocurvature identified with left lateral osteophytes noted. Straightening of the lumbar spine with loss of normal lordosis can be positional. Vertebral bodies are normal in height without evidence of acute fracture. ??There is endplate sclerosis and erosion of the inferior L4 endplate, with an osteophyte present. ??This is favored to be degenerative. There is no acute fracture. There is mild calcified atherosclerotic plaque of the abdominal aorta. No spinal stenosis L1-2: Mild disc bulge. There is mild bilateral facet arthropathy. There is mild bilateral neuroforaminal stenosis. There is no spinal canal stenosis. L2-3: Moderate disc bulge There is moderate facet arthropathy. There is mild bilateral neuroforaminal stenosis. There is no spinal canal stenosis. L3-4: Moderate disc bulge. There is mild facet arthropathy. There is mild left mild right neuroforaminal stenosis. No significant spinal canal stenosis. L4-5: Moderate disc bulge. Moderate right and severe left facet arthropathy. There is mild bilateral neuroforaminal stenosis. No significant spinal canal stenosis. L5-S1: Mild disc bulge disc bulge. There is mild ??bilateral facet arthropathy. There is minimal neuroforaminal stenosis. There is no spinal canal stenosis. Procedure Note Edgar Sepulveda MD PhD - 08/08/2021 EXAMINATION: Computed tomography (CT) of the lumbar spine without contrast HISTORY: 70 year female with peripheral neuropathy with new retention and concern for spinal stenosis TECHNIQUE: CT of the lumbar spine was performed according to standard protocol without intravenous contrast. COMPARISON: None FINDINGS: Mild levocurvature identified with left lateral osteophytes noted. Straightening of the lumbar spine with loss of normal lordosis can be positional. Vertebral bodies are normal in height without evidence of acute fracture. There is endplate sclerosis and erosion of the inferior L4 endplate, with an osteophyte present. This is favored to be degenerative. There is no acute fracture. There is mild calcified atherosclerotic plaque of the abdominal aorta. No spinal stenosis L1-2: Mild disc bulge. There is mild bilateral facet arthropathy. There is mild bilateral neuroforaminal stenosis. There is no spinal canal stenosis. L2-3: Moderate disc bulge There is moderate facet arthropathy. There is mild bilateral neuroforaminal stenosis. There is no spinal canal stenosis. L3-4: Moderate disc bulge. There is mild facet arthropathy. There is mild left mild right neuroforaminal stenosis. No significant spinal canal stenosis. L4-5: Moderate disc bulge. Moderate right and severe left facet arthropathy. There is mild bilateral neuroforaminal stenosis. No significant spinal canal stenosis. L5-S1: Mild disc bulge disc bulge. There is mild bilateral facet arthropathy. There is minimal neuroforaminal stenosis. There is no spinal canal stenosis. IMPRESSION: Mild degenerative changes of the lumbar spine without significant spinal canal stenosis identified. Inferior endplate irregularity and sclerosis of L4 vertebral body is favored to be degenerative. If there is any concern for spinal infection, MRI of the lumbar spine could be obtained for further evaluation. Dictated by: Nikhil Lindo M.D. The radiology attending physician has personally reviewed this study, and had reviewed and/or edited this written report and agrees with it. Electronically signed by: Edgar Sepulveda us Markie Demarco MD IMG CT PROCEDURES Final Result * POCT glucose (08/08/2021 3:19 AM RAIL SPECIALIST) Glucose, POC 129 70 - 199 mg/dL [facility] Blood 08/08/2021 3:19 AM RAIL SPECIALIST 08/08/2021 3:19 AM RAIL SPECIALIST us Markie Demarco MD LAB POCT ORDERABLES - D EVICE Final Result [facility] Department [place] [address] * Blood culture Blood (08/08/2021 3:15 AM RAIL SPECIALIST) Report Final Report: No growth [facility] Blood 08/08/2021 3:15 AM RAIL SPECIALIST 08/08/2021 3:29 AM RAIL SPECIALIST Narrative [facility] - 08/12/2021 7:00 AM RAIL SPECIALIST 1. ?Blood cultures are incubated for 4 [...] organism identification may be performed using the [employer] Gram-Positive Blood Culture Assay. This assay detects microbial DNA in positive blood culture broth via hybridization of target DNA to capture oligonucleotides on a microarray. This assay has been cleared by the [place] Food and Drug Administration and its performance characteristics have been verified by the [facility]. 5. ?For questions about this culture, contact the Microbiology Laboratory at [phone]. Interpretive data was last revised on 2019. Yordy Julio MD LAB MICROBIOLOGY - GENE RAL ORDERABLES Final Result [facility] Department [place] [address] * Blood culture Blood (08/08/2021 3:15 AM RAIL SPECIALIST) Report Final Report: No growth [facility] Blood 08/08/2021 3:15 AM RAIL SPECIALIST 08/08/2021 3:29 AM RAIL SPECIALIST Narrative [facility]ATE - 08/12/2021 7:00 AM RAIL SPECIALIST 1. ?Blood cultures are incubated for 4 [...] organism identification may be performed using the [employer] Gram-Positive Blood Culture Assay. This assay detects microbial DNA in positive blood culture broth via hybridization of target DNA to capture oligonucleotides on a microarray. This assay has been cleared by the [place] Food and Drug Administration and its performance characteristics have been verified by the [facility]. 5. ?For questions about this culture, contact the Microbiology Laboratory at [phone]. Interpretive data was last revised on 2019. Yordy Julio MD LAB MICROBIOLOGY - GENE RAL ORDERABLES Final Result Performing Organization Address [facility] Co de Phone Number [facility] Department [place] [address] * ECG 12 lead (08/08/2021 2:48 AM RAIL SPECIALIST) Pathologist [facility] Ventricular Rate EKG/Min 75 BPM [facility] Atrial Rate 75 BPM [facility] [place]-Interval (MSEC) 164 ms [facility] QRS-Interval (MSEC) 74 ms [facility] QT-Interval (MSEC) 418 ms [facility] QTc 466 ms [facility] P [place] 67 degrees [facility] R [place] 7 degrees [facility] T [place] 38 degrees [facility] Diagnosis Normal sinus rhythm Normal ECG No previous ECGs available Confirmed by ENRICO MARTINEZ M.D ([id number]) on 08/08/2021 7:06:54 PM [facility] 08/08/2021 2:48 AM RAIL SPECIALIST 08/08/2021 7:06 PM RAIL SPECIALIST us Yrn Li MD PhD ECG ORDERABLES Final R esult Performing Organization Address [facility] de Phone Number [facility] * (ABNORMAL) Urinalysis, microscopic only (08/08/2021 12:05 AM RAIL SPECIALIST) Pathologist [facility] WBC, ur 0-5 0 - 5 /HPF [facility] RBC, ur 0-2 0 - 2 /HPF [facility] Bacteria, ur Trace(A) [facility] Amorphous crystals, ur Trace(A) [facility] Hyaline casts, ur 6-10 0 - 10 /LPF [facility] Culture Reflex Comment Reflex conditions for urine culture (WBC >10) not met. [facility] Urine 08/08/2021 12:0 5 AM RAIL SPECIALIST 08/08/2021 12:16 AM RAIL SPECIALIST Larry Ding MD LAB URINE ORDERABLES Blessing l Result Performing Organization Address [facility] Co de Phone Number [facility] Department [place] [address] * (ABNORMAL) Urinalysis reflex to microscopic and culture Urine (08/08/2021 12:05 AM RAIL SPECIALIST) Color, ur Straw Yellow [facility] Clarity, ur Clear Clear [facility] Specific gravity, ur 1.016 1.003 - 1.030 [facility] pH, urine 6.0 [facility] Protein, ur ql 2+(A) Negative [facility] Glucose, ur ql 3+(A) Negative [facility] Ketones, ur Negative Negative [facility] Bilirubin, ur Negative Negative [facility] Blood, ur Negative Negative [facility] Urobilinogen, ur <2.0 <2.0 mg/dL [facility] Nitrite, ur Negative Negative [facility] Leukocyte esterase, ur Negative Negative [facility] UA reflex comment Reflex to microscopic UA will be performed. [facility] Urine 08/08/2021 12:0 5 AM RAIL SPECIALIST 08/08/2021 12:16 AM RAIL SPECIALIST Narrative [facility] - 08/08/2021 12:22 AM RAIL SPECIALIST ?? Urine pH is affected by diet, medications, systemic acid-base disturbances, and renal tubular function. ??pH may affect urinary stone formation. ??For example, urine pH below 6.0 may help reduce the tendency for calcium phosphate stones and pH greater than 6.0 may reduce the tendency for uric acid stone formation. Source: [employer]. Last revised 07-02-2017 us Larry Ding MD LAB MICROBIOLOGY - GENERA L ORDERABLES Final Result [facility] Department [place] [address] * Influenza A/B, RSV, and COVID-19 PCR Nasopharyngeal (08/07/2021 11:22 PM RAIL SPECIALIST) COVID-19 RNA Negative Negative [facility] Influenza A RNA Negative Negative [facility] Influenza B RNA Negative Negative [facility] RSV RNA Negative Negative [facility] Comment: Interpretive data: Testing performed by [facility] ([phone]). This test is performed using the [employer] Xpert Xpress CoV-2/Flu/RSV plus assay. This is a multiplex, real-time reverse transcriptase PCR assay intended for the qualitative detection of nucleic acid from SARS-CoV-2, influenza A, influenza B, and respiratory syncytial virus. This assay has been reviewed by the FDA for Emergency Use Authorization (EUA). The performance characteristics have been verified by the [facility]. Results must be considered in the clinical context, and a negative result does not rule out infection. Interpretive Data last revised 2021. First COVID-19 test? No [facility] Employeed in healthcare? No [facility] status? No [facility] Group care resident? No [facility] Hospitalized? No [facility] Is patient in ICU? No [facility] Symptomatic as defined by CDC? No [facility] Nasopharyngeal 08/07/2021 11 :22 PM RAIL SPECIALIST 08/07/2021 11:39 PM RAIL SPECIALIST Narrative [facility] - 08/08/2021 12:34 AM RAIL SPECIALIST Reason for testing?->Bed placement or semi-private room Known exposure to confirmed or suspected COVID-19 case?->No Larry Ding MD LAB MICROBIOLOGY - GENERA L ORDERABLES Final Result [facility] Department [place] [address] * XR Chest Pa Lateral 2 Vw (08/07/2021 11:06 PM RAIL SPECIALIST) Anatomical Region Laterality Modality Body, Chest N/A Computed Radiogr aphy 08/07/2021 11:1 0 PM RAIL SPECIALIST Impressions 08/08/2021 9:17 AM RAIL SPECIALIST Linear airspace opacities in the right lung base are favored to represent mild atelectasis. No pleural effusion or pneumothorax. Cardiomediastinal silhouette is stable. Dictated by: Luan Colunga M.D. The radiology attending physician has personally reviewed this study, and had reviewed and/or edited this written report and agrees with it. Electronically signed by: Marilyn Ziegler M.D. Narrative 08/08/2021 9:17 AM RAIL SPECIALIST EXAMINATION: XR CHEST PA LATERAL 2 VIEWS HISTORY: Increasing confusion, infectious workup COMPARISON: 12/08/2011 Procedure Note Marilyn Ziegler MD - 08/08/2021 EXAMINATION: XR CHEST PA LATERAL 2 VIEWS HISTORY: Increasing confusion, infectious workup COMPARISON: 12/08/2011 IMPRESSION: Linear airspace opacities in the right lung base are favored to represent mild atelectasis. No pleural effusion or pneumothorax. Cardiomediastinal silhouette is stable. Dictated by: Luan Colunga M.D. The radiology attending physician has personally reviewed this study, and had reviewed and/or edited this written report and agrees with it. Electronically signed by: Marilyn Ziegler M.D. us Larry Ding MD IMG XR PROCEDURES Final R esult * POCT glucose (08/07/2021 11:03 PM RAIL SPECIALIST) Pathologist [facility] Glucose, POC 132 70 - 199 mg/dL [facility] Blood 08/07/2021 11:0 3 PM RAIL SPECIALIST 08/07/2021 11:03 PM RAIL SPECIALIST us Notinfile Unknown LAB POCT ORDERABLES - DEVICE F inal Result [facility] Department [place] [address] * (ABNORMAL) eGFR (08/07/2021 10:17 PM RAIL SPECIALIST) Pathologist [facility] eGFR 22(L) 90 - 130 mL/min/1. 73 m2 [facility] Comment: Interpretive Data Reference Interval Normal [...] interpretive data was last reviewed 2021. Blood 08/07/2021 10:1 7 PM RAIL SPECIALIST 08/07/2021 10:24 PM RAIL SPECIALIST us Larry Ding MD LAB BLOOD ORDERABLES Blessing alicea Result [facility] Department [place] [address] * (ABNORMAL) Differential, auto (08/07/2021 10:17 PM RAIL SPECIALIST) Pathologist [facility] Neutrophil abs 8.0(H) 1.7 - 6.5 K/cumm [facility] Imm gran abs 0.0 0.0 - 0.1 K/cumm [facility] Lymphocyte abs 3.4(H) 0.8 - 3.3 K/cumm [facility] Monocyte abs 0.9(H) 0.2 - 0.8 K/cumm [facility] Eosinophil abs 0.2 0.0 - 0.5 K/cumm [facility] Basophil abs 0.1 0.0 - 0.1 K/cumm [facility] Neutrophil pct 63.6 % [facility] Comment: Interpretive Data Percent cell count reference ranges are not reported, since discordance with absolute values may lead to misinterpretation of CBC data. Current Interpretive Data was last revised on 2017. Imm gran pct 0.2 % [facility] Comment: Interpretive Data Percent cell count reference ranges are not reported, since discordance with absolute values may lead to misinterpretation of CBC data. Current Interpretive Data was last revised on 2017. Lymphocyte pct 27.1 % [facility] Comment: Interpretive Data Percent cell count reference ranges are not reported, since discordance with absolute values may lead to misinterpretation of CBC data. Current Interpretive Data was last revised on 2017. Monocyte pct 7.5 % [facility] Comment: Interpretive Data Percent cell count reference ranges are not reported, since discordance with absolute values may lead to misinterpretation of CBC data. Current Interpretive Data was last revised on 2017. Eosinophil pct 1.2 % [facility] Comment: Interpretive Data Percent cell count reference ranges are not reported, since discordance with absolute values may lead to misinterpretation of CBC data. Current Interpretive Data was last revised on 2017. Basophil pct 0.4 % [facility] Comment: Interpretive Data Percent cell count reference ranges are not reported, since discordance with absolute values may lead to misinterpretation of CBC data. Current Interpretive Data was last revised on 2017. Blood 08/07/2021 10:1 7 PM RAIL SPECIALIST 08/07/2021 10:25 PM RAIL SPECIALIST us Larry Ding MD LAB BLOOD ORDERABLES Blessing alicea Result [facility] [place] [address] * (ABNORMAL) CBC with auto differential (08/07/2021 10:17 PM RAIL SPECIALIST) WBC 12.5(H) 3.8 - 9.9 K/cumm [facility] Hgb 9.7(L) 11.9 - 15.5 g/dL [facility] Hct 31.2(L) 35.6 - 45.5 % [facility] Plt 319 150 - 400 K/cumm [facility] MPV 10.8 9.1 - 12.3 fL [facility] RBC 3.36(L) 3.90 - 5.20 M/cumm [facility] MCV 92.9 81.3 - 96.4 fL [facility] MCH 28.9 27.1 - 33.3 pg [facility] MCHC 31.1(L) 32.3 - 35.7 g/dL [facility] RDW CV 15.8(H) 11.1 - 14.9 % [facility] RDW SD 53.3(H) 35.7 - 48.1 fL [facility] NRBC abs 0.00 0.00 - 0.01 K/cumm [facility] Blood 08/07/2021 10:1 7 PM RAIL SPECIALIST 08/07/2021 10:25 PM RAIL SPECIALIST Larry Ding MD LAB BLOOD ORDERABLES Blessing alicea Result [facility] Department [place] [address] * (ABNORMAL) Basic metabolic panel (08/07/2021 10:17 PM RAIL SPECIALIST) Sodium 143 135 - 145 mmol/L [facility] Potassium, pl 4.3 3.3 - 4.9 mmol/L [facility] Chloride 109 97 - 110 mmol/L [facility] CO2 23 22 - 32 mmol/L [facility] Anion gap 11 2 - 15 mmol/L [facility] BUN 40(H) 8 - 25 mg/dL [facility] Creatinine 2.36(H) 0.60 - 1.10 mg/dL [facility] Glucose 176 70 - 199 mg/dL [facility] Comment: Interpretive Data Fasting glucose >/= [...] 2017. Calcium 9.6 8.5 - 10.3 mg/dL [facility] Blood 08/07/2021 10:1 7 PM RAIL SPECIALIST 08/07/2021 10:24 PM RAIL SPECIALIST Larry Ding MD LAB BLOOD ORDERABLES Blessing l Result Performing Organization Address [facility] de Phone Number [facility] Department [place] [address] * Hepatic function panel (08/07/2021 10:17 PM RAIL SPECIALIST) Bilirubin, total 0.2 0.1 - 1.2 mg/dL [facility] Bilirubin, direct <0.2 0.1 - 0.3 mg/dL [facility] Protein, pl 7.8 6.5 - 8.5 g/dL [facility] Albumin 4.1 3.5 - 5.0 g/dL [facility] Alk phos 118 40 - 130 Units/L [facility] ALT 32 7 - 45 Units/L [facility] AST 21 10 - 45 Units/L [facility] Blood 08/07/2021 10:1 7 PM RAIL SPECIALIST 08/07/2021 10:24 PM RAIL SPECIALIST Larry Ding MD LAB BLOOD ORDERABLES Blessing l Result Performing Organization Address [facility] de Phone Number [facility] Department [place] [address] * (ABNORMAL) POCT glucose (08/07/2021 4:37 PM RAIL SPECIALIST) Glucose, POC 215(H) 70 - 199 mg/dL [facility] Blood 08/07/2021 4:37 PM RAIL SPECIALIST 08/07/2021 4:37 PM RAIL SPECIALIST us Notinfile Unknown LAB POCT ORDERABLES - DEVICE F inal Result [facility] [place] [address] * (ABNORMAL) POCT glucose (08/07/2021 4:28 PM RAIL SPECIALIST) Glucose, POC 219(H) 70 - 199 mg/dL [facility] Blood 08/07/2021 4:28 PM RAIL SPECIALIST 08/07/2021 4:28 PM RAIL SPECIALIST Notinfile Unknown LAB POCT ORDERABLES - DEVICE F inal Result Performing Organization Address [facility] Co de Phone Number [facility] [place] [address] documented in this encounter Visit Diagnoses Diagnosis STEFANO (acute kidney injury) (HCC) Generalized weakness Delirium Other alteration of consciousness Uncontrolled type 2 diabetes mellitus with hyperglycemia (HCC) Dementia without behavioral disturbance, unspecified dementia type Schizoaffective disorder, bipolar type (CMS/HCC) (HCC) Schizoaffective disorder, unspecified condition Stage 3b chronic kidney disease (HCC) STEFANO (acute kidney injury) (HCC) Anemia, unspecified type Gastritis without bleeding, unspecified chronicity, unspecified gastritis type documented in this encounter Admitting Diagnoses Diagnosis STEFANO (acute kidney injury) (HCC) documented in this encounter Administered Medications Inactive Administered Medications - up to 3 most recent administrations Medication Order MAR Action Action Date Dose Rate Site acetaminophen (TYLENOL) tablet 650 mg 650 mg, oral, Every 4 hours PRN, 1st line for pain, fever, fever greater than 38.3 C, Starting on Kellie 08/08/21 at 0231, Indications: Fever, PainIndications:Fever,Pain Given 08/12/2021 8:11 PM RAIL SPECIALIST 650 mg Given 08/09/2021 9:11 PM RAIL SPECIALIST 650 mg Given 08/08/2021 9:04 PM RAIL SPECIALIST 650 mg atorvastatin (LIPITOR) tablet 40 mg 40 mg, oral, Daily, First dose on Kellie 08/08/21 at 0900 Given 08/14/2021 9:01 AM RAIL SPECIALIST 40 mg Given 08/13/2021 8:04 AM RAIL SPECIALIST 40 mg Given 08/12/2021 8:16 AM RAIL SPECIALIST 40 mg capsaicin (ZOSTRIX) 0.025 % cream topical, 2 times daily, First dose on 08/11/21 at 1030, Apply to affected area: leg, Laterality: Bilateral Given 08/12/2021 9:12 AM RAIL SPECIALIST Given 08/11/2021 9:54 PM RAIL SPECIALIST dextrose (D10W) 10% bolus 250 mL 250 mL, intravenous, at 1,000 mL/hr, Administer over 15 Minutes, Every 15 min PRN, blood glucose less than 70 mg/dL and UNABLE to swallow/take PO glucose/juice., Starting on Kellie 08/08/21 at 0231, After treatment for hypoglycemia, recheck BG followed [...] less than 70 mg/dL, Starting on Kellie 08/08/21 at 0231, If patient is alert and able to [...] Call MD for each episode of hypoglycemia. PARAFFIN MACHINE OPERATOR STATES GLUTOSE-15 CONTAINS GLUCOSE 40% W/W (50% W/V), Indications: hypoglycemic disorderIndications:hypoglycemic disorder famotidine (PEPCID) tablet 20 mg 20 mg, oral, Daily, First dose on Kellie 08/08/21 at 0900 Given 08/14/2021 9:01 AM RAIL SPECIALIST 20 mg Given 08/13/2021 8:04 AM RAIL SPECIALIST 20 mg Given 08/12/2021 8:16 AM RAIL SPECIALIST 20 mg heparin 5,000 unit/mL injection 5,000 Units 5,000 Units, subcutaneous, Every 8 hours scheduled, First dose on Thu08/08/21 at 0600, Indications: Deep Vein Thrombosis PreventionIndications:Deep Vein Thrombosis Prevention Given 08/14/2021 1:00 PM RAIL SPECIALIST 5,000 Units Left Lower Abdomen Given 08/14/2021 5:03 AM RAIL SPECIALIST 5,000 Units L eft Lower Abdomen Given 08/13/2021 9:02 PM RAIL SPECIALIST 5,000 Units R ight Lower Abdomen insulin glargine (LANTUS, SEMGLEE) 100 unit/mL injection 16 Units 16 Units (0.25 Units/kg ? 64 kg), subcutaneous, Nightly, First dose on Thu08/08/21 at 2100, Do not hold if NPO. Do not mix with other insulins, Indications: Diabetes MellitusIndications:Diabetes Mellitus Given 08/13/2021 9:01 PM RAIL SPECIALIST 16 Units Left Lower Abdomen Given 08/12/2021 8:10 PM RAIL SPECIALIST 16 Units Le ft Upper Arm Given 08/11/2021 8:54 PM RAIL SPECIALIST 16 Units Le ft Lower Abdomen insulin glargine (LANTUS, SEMGLEE) 100 unit/mL injection 18 Units 18 Units, subcutaneous, Nightly, First dose (after last modification) on Thu08/14/21 at 2100, Do not hold if NPO. Do not mix with other insulins, Indications: Diabetes MellitusIndications:Diabetes Mellitus insulin lispro (HumaLOG, ADMELOG) 100 unit/mL injection 0-10 Units 0-10 Units, subcutaneous, 3 times daily with meals, First dose on Thu08/08/21 at 0800, Blood glucose mg/dL: 149 or [...] NPO Status, Indications: Diabetes MellitusIndications:Diabetes Mellitus Given 08/14/2021 6:01 PM RAIL SPECIALIST 2 Units Left Lower Abdomen Given 08/14/2021 9:08 AM RAIL SPECIALIST 2 Units Le ft Upper Arm Given 08/13/2021 5:06 PM RAIL SPECIALIST 4 Units Le ft Lower Abdomen insulin lispro (HumaLOG, ADMELOG) 100 unit/mL injection 0-5 Units 0-5 Units, subcutaneous, Nightly, First dose on Kellie 08/08/21 at 2100, Blood glucose mg/dL: 149 or [...] NPO Status, Indications: Diabetes MellitusIndications:Diabetes Mellitus Given 08/13/2021 9:01 PM RAIL SPECIALIST 1 Units Left Lower Abdomen Given 08/12/2021 8:10 PM RAIL SPECIALIST 1 Units Le ft Lower Abdomen Given 08/08/2021 9:05 PM RAIL SPECIALIST 1 Units Le ft Lower Abdomen insulin lispro (HumaLOG, ADMELOG) 100 unit/mL injection 5 Units 5 Units (rounded from 5.312 Units = 0.083 Units/kg ? 64 kg), subcutaneous, 3 times daily with meals, First dose on Thu08/08/21 at 0800, If BG greater than or [...] 70 mg/dL., Indications: Diabetes MellitusIndications:Diabetes Mellitus Given 08/14/2021 6:02 PM RAIL SPECIALIST 5 Units Left Lower Abdomen Given 08/14/2021 1:00 PM RAIL SPECIALIST 5 Units Le ft Lower Abdomen Given 08/14/2021 9:01 AM RAIL SPECIALIST 5 Units Le ft Upper Arm Lactated Ringer's (LR) bolus 1,000 mL 1,000 mL, intravenous, at 1,000 mL/hr, Administer over 1 Hours, Once, On Thu08/07/21 at 2335, For 1 dose New Bag 08/08/2021 12:08 AM RAIL SPECIALIST 1,000 mL 1000 mL/hr polyethylene glycol (MIRALAX) packet 17 g 17 g, oral, Daily, First dose (after last modification) on Thu08/13/21 at 1100, Indications: constipationIndications:constip ation Given 08/13/2021 11:59 AM RAIL SPECIALIST 17 g pregabalin (LYRICA) capsule 150 mg 150 mg, oral, Nightly, First dose (after last modification) on Thu08/10/21 at 2100 Given 08/13/2021 9:01 PM RAIL SPECIALIST 150 mg Given 08/12/2021 8:11 PM RAIL SPECIALIST 150 mg Given 08/11/2021 8:54 PM RAIL SPECIALIST 150 mg pregabalin (LYRICA) capsule 75 mg 75 mg, oral, Daily, First dose on Thu08/09/21 at 1400 Given 08/10/2021 7:52 AM RAIL SPECIALIST 75 mg Given 08/09/2021 3:11 PM RAIL SPECIALIST 75 mg ramelteon (ROZEREM) tablet 8 mg 8 mg, oral, Nightly PRN, sleep, Starting on Thu08/08/21 at 0231, Indications: Sleep-Onset InsomniaIndications:Sleep-Onset Insomnia Given 08/10/2021 9:59 PM RAIL SPECIALIST 8 m g Given 08/09/2021 9:11 PM RAIL SPECIALIST 8 mg Given 08/08/2021 9:04 PM RAIL SPECIALIST 8 mg risperiDONE (RisperDAL) tablet 2 mg 2 mg, oral, Nightly, First dose on Thu08/08/21 at 2100 Given 08/13/2021 9:01 PM RAIL SPECIALIST 2 mg Given 08/12/2021 8:11 PM RAIL SPECIALIST 2 mg Given 08/11/2021 8:54 PM RAIL SPECIALIST 2 mg sodium chloride 0.9% flush 0.5-20 mL 0.5-20 mL, intra-catheter, Every 8 hours scheduled, First dose on Thu08/08/21 at 0600, Flush volume based on line type and size. Given 08/14/2021 5:03 AM RAIL SPECIALIST 10 mL Given 08/13/2021 9:02 PM RAIL SPECIALIST 10 mL Given 08/12/2021 9:11 PM RAIL SPECIALIST 10 mL documented in this encounter Discontinued Medications Medication Sig Discontinue Reason Start Date End Da te insulin glargine (LANTUS) 100 unit/mL (3 mL) pen for injectionIndications:Unc ontrolled type 2 diabetes mellitus with hyperglycemia (HCC) Inject 55 Units under the skin nightly Reorder 05/28/2021 08/13/2021 insulin glargine (LANTUS) 100 unit/mL (3 mL) pen for injectionIndications:Unc ontrolled type 2 diabetes mellitus with hyperglycemia (HCC) Inject 15 Units under the skin nightly Stop Taking at Discharge 08/13/2021 08/14/2021 hydroCHLOROthiazide (HYDRODIURIL) 25 mg tabletIndications:Hypert ension associated with diabetes (HCC) Take 1 tablet (25 mg total) by mouth daily Stop Taking at Discharge 03/07/2021 08/14/2021 haloperidoL (HALDOL) 5 mg tablet Take 1 tablet (5 mg total) by mouth nightly Stop Taking at Discharge 07/01/2021 08/14/2021 amoxicillin-clavulanate (AUGMENTIN) 875-125 mg per tablet Take 1 tablet by mouth Take 1 tablet q 12 hours Stop Taking at Discharge 08/04/2021 08/14/2021 amLODIPine (NORVASC) 10 mg tablet Take 1 tablet (10 mg total) by mouth daily Stop Taking at Discharge 08/05/2021 08/14/2021 documented as of this encounter Active and Recently Administered Medications Times are shown in RAIL SPECIALIST. Scheduled Medication Order 08/12/2021 08/13/2021 08/14/2021 atorvastatin (LIPITOR) tablet 40 mg 40 mg, oral, Daily, First dose on Kellie 08/08/21 at 0900 0816 (Given - Provider: Ngozi Albright RN) 0804 (Given - Provider: Clary Rivero RN) 0901 (Given - Provider: Kiley Saravia RN) capsaicin (ZOSTRIX) 0.025 % cream topical, 2 times daily, First dose on 08/11/21 at 1030, Apply to affected area: leg, Laterality: Bilateral 0912 (Given - Provider: Ngozi Albright RN)2100 (Due) 0804 (Not Given - Provider: Clary Rivero RN - Reason: Medication not available)213 (Not Given - Provider: La Nena Kwan Chi, RN - Reason: Medication not available) 0902 (Not Given - Provider: Kiley Saravia RN - Reason: Patient/family refused) famotidine (PEPCID) tablet 20 mg 20 mg, oral, Daily, First dose on Kellie 08/08/21 at 0900 0816 (Given - Provider: Ngozi Albright RN) 0804 (Given - Provider: Clary Rivero, ALIREZA) 09 (Given - Provider: Kiley Saravia, RN) heparin 5,000 unit/mL injection 5,000 Units 5,000 Units, subcutaneous, Every 8 hours scheduled, First dose on Thu08/08/21 at 0600, Indications: Deep Vein Thrombosis Prevention 0532 (Given - Provider: Marla Walker)1236 (Given - Provider: Ngozi Albright RN)2010 (Given - Provider: Marie Pagan RN) 045 (Given - Provider: Marie Pagan, ALIREZA)151 (Not Given - Provider: Clary Rivero RN - Reason: Patient/family refused)2101 (Given - Provider: LaN ena Kwan Chi, ALIREZA) 050 (Given - Provider: La Nena Kwan Chi, ALIREZA)1300 (Given - Provider: Kiley Saravia, RN) insulin glargine (LANTUS, SEMGLEE) 100 unit/mL injection 16 Units (CANCELED) 16 Units (0.25 Units/kg ? 64 kg), subcutaneous, Nightly, First dose on Thu08/08/21 at 2100, Do not hold if NPO. Do not mix with other insulins, Indications: Diabetes Mellitus 2009 (Given - Provider: Marie Pagan RN) 2100 (Given - Provider: La Nena Kwan Chi, ALIREZA) insulin glargine (LANTUS, SEMGLEE) 100 unit/mL injection 18 Units 18 Units, subcutaneous, Nightly, First dose (after last modification) on Thu08/14/21 at 2100, Do not hold if NPO. Do not mix with other insulins, Indications: Diabetes Mellitus insulin lispro (HumaLOG, ADMELOG) 100 unit/mL injection 0-10 Units 0-10 Units, subcutaneous, 3 times daily with meals, First dose on Thu08/08/21 at 0800, Blood glucose mg/dL: 149 or [...] hold for NPO Status, Indications: Diabetes Mellitus 0816 (Given - Provider: Ngozi Albright RN)1236 (Given - Provider: Ngozi Albright RN)1749 (Given - Provider: Ngozi Albright RN) 0804 (Given - Provider: Clary Rivero, ALIREZA)1159 (Given - Provider: Clary Rivero, ALIREZA)1706 (Given - Provider: Clary Rivero, ALIREZA) 0908 (Given - Provider: Kiley Saravia, ALIREZA)1300 (Not Given - Provider: Kiley Saravia RN - Reason: Order parameters not met)1801 (Given - Provider: Kiley Saravia, ALIREZA) insulin lispro (HumaLOG, ADMELOG) 100 unit/mL injection 0-5 Units 0-5 Units, subcutaneous, Nightly, First dose on Kellie 08/08/21 at 2100, Blood glucose mg/dL: 149 or [...] hold for NPO Status, Indications: Diabetes Mellitus 2009 (Given - Provider: Marie Pagan RN - Comment: BG 153) 2100 (Given - Provider: La Nena Kwan Chi, RN) insulin lispro (HumaLOG, ADMELOG) 100 unit/mL injection 5 Units 5 Units (rounded from 5.312 Units = 0.083 Units/kg ? 64 kg), subcutaneous, 3 times daily with meals, First dose on Kellie 08/08/21 at 0800, If BG greater than or [...] less than 70 mg/dL., Indications: Diabetes Mellitus 0816 (Given - Provider: Ngozi Albright RN)1236 (Given - Provider: Ngozi Albright RN)1749 (Given - Provider: Ngozi Albright RN) 0805 (Given - Provider: Clary Rivero, ALIREZA)1159 (Given - Provider: Clary Rivero RN)1706 (Given - Provider: Clayr Rivero RN) 0901 (Given - Provider: Kiley Saravia, RN)1300 (Given - Provider: Kiley Saravia, RN)1802 (Given - Provider: Kiley Saravia, RN) polyethylene glycol (MIRALAX) packet 17 g 17 g, oral, Daily, First dose (after last modification) on Thu08/13/21 at 1100, Indications: constipation 1159 (Given - Provider: Clary Rivero RN) 0901 (Not Given - Provider: Kiley Saravia RN - Reason: Patient/family refused) pregabalin (LYRICA) capsule 150 mg 150 mg, oral, Nightly, First dose (after last modification) on Thu08/10/21 at 2099 2010 (Given - Provider: Marie Pagan RN) 2100 (Given - Provider: La Nena Kwan Chi, RN) risperiDONE (RisperDAL) tablet 2 mg 2 mg, oral, Nightly, First dose on Kellie 08/08/21 at 2099 2010 (Given - Provider: Marie Pagan RN) 2100 (Given - Provider: La Nena Kwan Chi, RN) sodium chloride 0.9% flush 0.5-20 mL 0.5-20 mL, intra-catheter, Every 8 hours scheduled, First dose on Kellie 08/08/21 at 0600, Flush volume based on line type and size. 0532 (Given - Provider: Marla Walker)1237 (Given - Provider: Ngozi Albright RN)2110 (Given - Provider: Marie Pagan RN) 0600 (Due)1452 (Return to [facility] - Provider: Clary Rivero RN)2101 (Given - Provider: La Nena Kwan Chi, RN) 0503 (Given - Provider: La Nena Kwan Chi, RN)1500 (Not Given - Provider: Kiley Saravia RN - Reason: Other) PRN Medication Order 08/12/2021 08/13/2021 08/14/2021 acetaminophen (TYLENOL) tablet 650 mg 650 mg, oral, Every 4 hours PRN, 1st line for pain, fever, fever greater than 38.3 C, Starting on Kellie 08/08/21 at 0231, Indications: Fever, Pain 2010 (Given - Provider: Marie Pagan RN) bisacodyL (DULCOLAX) suppository 10 mg 10 mg, rectal, Daily PRN, constipation, If no results 24 hours after polyethylene glycol (MIRALAX). May give bisacodyl tablet if tolerating PO., Starting on Kellie 08/08/21 at 0231, Indications: constipation bisacodyl EC (DULCOLAX EC) tablet 10 mg 10 mg, oral, Daily PRN, constipation, If no results 24 hours after polyethylene glycol (MIRALAX). May give bisacodyl supp if not tolerating PO), Starting on Kellie 08/08/21 at 0231, Do not crush, chew, cut, dissolve, open or otherwise manipulate tablet/capsule., Indications: constipation dextrose (D10W) 10% bolus 250 mL(Linked Group 1) 250 mL, intravenous, at 1,000 mL/hr, Administer over 15 Minutes, Every 15 min PRN, blood glucose less than 70 mg/dL and UNABLE to swallow/take PO glucose/juice., Starting on Kellie 08/08/21 at 0231, After treatment for hypoglycemia, recheck BG followed [...] less than 70 mg/dL, Starting on Kellie 08/08/21 at 0231, If patient is alert and able to [...] Call MD for each episode of hypoglycemia. PARAFFIN MACHINE OPERATOR STATES GLUTOSE-15 CONTAINS GLUCOSE 40% W/W (50% W/V), Indications: hypoglycemic disorder glucagon injection 1 mg 1 mg, intramuscular, Every 30 min PRN, low blood sugar, blood glucose less than 70 mg/dL AND no IV access AND unable to take PO glucose/juice., Starting on Kellie 08/08/21 at 0231, After Glucagon is administered, position patient on [...] 1 mL SWFI. Use immediately following reconstitution. ramelteon (ROZEREM) tablet 8 mg 8 mg, oral, Nightly PRN, sleep, Starting on Kellie 08/08/21 at 0231, Indications: Sleep-Onset Insomnia sodium chloride 0.9% flush 0.5-20 mL 0.5-20 mL, intra-catheter, As needed, line care, Starting on Kellie 08/08/21 at 0231, Flush volume based on line type and size. Flush before and after each use. Linked Groups Order Group 1: dextrose (GLUTOSE) 40 % gel 15 gJump to med 15 g, oral, Every 15 min PRN, low blood sugar, blood glucose less than 70 mg/dL, Starting on Kellie 08/08/21 at 0231, If patient is alert and able to [...] Call MD for each episode of hypoglycemia. PARAFFIN MACHINE OPERATOR STATES GLUTOSE-15 CONTAINS GLUCOSE 40% W/W (50% W/V), Indications: hypoglycemic disorder Or dextrose (D10W) 10% bolus 250 mLJump to med 250 mL, intravenous, at 1,000 mL/hr, Administer over 15 Minutes, Every 15 min PRN, blood glucose less than 70 mg/dL and UNABLE to swallow/take PO glucose/juice., Starting on Kellie 08/08/21 at 0231, After treatment for hypoglycemia, recheck BG followed [...] Count Last Ordered Date First Ordered Date insulin glargine (LANTUS, SE MGLEE) 100 unit/mL injection 18 Units 1 08/14/2021 pregabalin (LYRICA) capsule 150 mg 1 2021 pregabalin (LYRICA) capsule 75 mg 1 022 bisacodyL (DULCOLAX) suppository 10 mg 1 bisacodyl EC (DULCOLAX EC) tablet 10 mg 1 0 08/08/2021 dextrose (D10W) 10% bolus 250 mL 1 08/08/19 dextrose (GLUTOSE) 40 % gel 15 g 1 08/08/19 glucagon injection 1 mg 1 08/08/2021 polyethylene glycol (MIRALAX) packet 17 g 1 08/08/2021 sodium chloride 0.9% flush 0.5-20 mL 1 07/23 Lab Orders Without Results Count Last Ordered D ate First Ordered Date POCT GLUCOSE DEVICE 33 08/14/2021 08/07/19 General Supply Count Last Ordered Date First Or dered Date WALKER 2 08/12/2021 08/08/2021 Nursing Count Last Ordered Date First Orde red Date BLADDER SCAN 2 08/08/2021 VITAL SIGNS 1 08/08/2021 WEIGH PATIENT 1 08/08/2021 STRAIGHT CATH 1 08/07/2021 Consult Count Last Ordered Date First Orde red Date IP CONSULT TO NUTRITION SERVICES 1 08/08/19 ADT Patient Update Count Last Ordered Date Firs t Ordered Date ED IP DECISION TO ADMIT 1 08/07/2021 documented in this encounter Additional Health Concerns Infection Onset Date Last Indicated Resolved Time COVID19 08/13/2021 08/13/2021 08/24/2021 3:05 AM RAIL SPECIALIST documented as of this encounter Care Teams Merchandise Supervisor Relationship Specialty Start Date End Date Cherelle Corcoran MD PCP - General Family Medicine 08/30/19 Mark Queen MD Consulting Physician Infectious Diseases 01/10/20 documented as of this encounter
--- OUTSIDE RECORDS SUMMARY | 2024-07-04 04:18 | XMS_ITS | Encounter Summary ---
Author Organization [facility] Address [address] [place] [address] Care Team Providers Care Duplicator Punch Set Up Operator Name Role Phone Cherelle Corcoran MD Primary Care Pro vider Mark Queen MD Unavailable [phone] Encounter Details Date Type Department Care Team (Late st Contact Info) Description 08/01/2021 Orders Only [facility] Cardiology [address] [place] [address] La López MD [address] [place] [id number] Social History Tobacco Use Types Packs/Day Years [...] file Legal Sex Female 9:03 AM BUS [employer]OLLEY AND [employer]AX[employer] INSTRUCTOR Gender Identity Female 02/08/2020 6:39 PM CDT Sexual Orientation Not on file documented as of this encounter Plan of Treatment Upcoming Encounters Date Type Department Care Team (Latest Contact Info) Description 07/13/2024 9:00 AM BUS [employer]OLLEY AND TAXI INSTRUCTOR Hospital Encounter [facility] [address] [place] [address] Jaya Grier MD [address] [place] [address] [place] [id number] 07/13/2024 9:00 AM BUS [employer]OLLEY AND TAXI INSTRUCTOR - 07/13/2024 9:30 AM BUS [employer]OL[employer] AND TAXI INSTRUCTOR Surgery [facility] [address] [place] [address] Jaya Grier MD [address] [place] [address] [place] [id number] ESOPHAGOGASTRODUODENOSCOPY Scheduled Procedures Name Priority Associated Diagnoses Date/Ti me ESOPHAGOGASTRODUODENOSCOPY Anemia, unspecified type Gastritis without bleeding, unspecified chronicity, unspecified gastritis type 07/13/2024 9:00 AM BUS TROLLEY AND TAXI INSTRUCTOR COLONOSCOPY Iron deficiency anemia due to chronic blood loss documented as of this encounter Procedures Procedure Name Priority Date/Time Associated Diagnosis Comments CARDIOLOGY DOCUMENT SCAN Routine 08/01/2021 documented in this encounter Results * SCAN - CARDIOLOGY (08/01/2021) Anatomical Region Laterality Modality Other Chuyitaeer Yefri López MD CV CARDIAC SERVICES PROCEDURES Final Result documented in this encounter Visit Diagnoses Not on filedocumented in this encounter Care Teams Duplicator Punch Set Up Operator Relationship Specialty Start Date End Date Cherelle Corcoran MD PCP - General Family Medicine 08/30/19 Mark Queen MD Consulting Physician Infectious Diseases 01/10/20 documented as of this encounter
--- OUTSIDE RECORDS SUMMARY | 2024-07-04 04:18 | XMS_ITS | Encounter Summary ---
Author Organization [facility] Address [address] [place] [address] Care Team Providers Care Budget Report Clerk Name Role Phone Cherelle Corcoran MD Primary Care Pro vider Mark Queen MD Unavailable [phone] Reason for Visit * Reason Comments Follow-up Encounter Details Date Type Department Care Team (Latest Contact Info) Description 03/07/2021 4:15 PM CDT Office Visit [facility] Primary Care [facility] [address] [place] [address] Cherelle Corcoran MD [address] [place] [phone] Hypertension associated with diabetes (HCC) (Primary Dx); Uncontrolled type 2 diabetes mellitus with hyperglycemia (CMS/HCC) (HCC); Other diabetic neurological complication associated with type 2 diabetes mellitus (HCC); Need for vaccination Social History Tobacco Use Types Packs/Day Years Used Date Smoking Tobacco: Never Smokeless Tobacco: Never Alcohol Use Standard Drinks/Week Comments Not Currently 0 (1 standard drink = 0.6 oz pur e alcohol) AUDIT-C Answer Date Recorded Q1: How often do you have a drink containing alc ohol? Never 03/07/2021 Average Number of Drinks Not on file 021 Frequency of Binge Drinking Not on file 02/20 PHQ-2 Answer Date Recorded PHQ-2 Total Score (If total score is 3 or more points, staff should administer the PHQ-9) 0 01/08/2021 Comments No Sex and Gender Information Value Date Recorded Sex Assigned at Not on file Legal Sex Female 9:03 AM PBX SUPERVISOR Gender Identity Female 02/08/2020 6:39 PM CDT Sexual Orientation Not on file documented as of this encounter Last Filed Vital Signs Vital Sign Reading Time Taken Comments Blood Pressure 120/60 03/07/2021 4:32 PM CDT Pulse 89 03/07/2021 4:32 PM CDT Temperature 36.4 ??C (97.6 ??F) 03/07/2021 4:32 PM CD T Respiratory Rate 16 03/07/2021 4:32 PM CDT Oxygen Saturation 96% 03/07/2021 4:32 PM CDT Inhaled Oxygen Concentration - - Weight 64.8 kg (142 lb 14.4 oz) 03/07/2021 4:32 PM CDT Height 157 cm (5' 1.81 ) 03/07/2021 4:32 PM CDT Body Mass Index 26.3 03/07/2021 4:32 PM CDT documented in this encounter Patient Instructions * Patient Instructions* Cherelle Corcoran MD - 03/07/2021 4:15 PM CDT Patient Education Low-Sodium Diet PICKLE MAKER: A low-sodium diet limits foods that are high in sodium (salt). You will need to follow a low-sodiumdiet if you have high blood pressure, kidney disease, or heart failure. You may also need to followthis diet if you have a condition that is causing your body to retain (hold) extra fluid. You may need to limit the amount of sodium you eat to 1,500 mg. Ask your healthcare provider how much sodium you can have each day. How to use food labels to choose foods that are low in sodium: Read food labels to find the amount of sodium they contain. The amount of sodium is listed in milligrams (mg). The % Daily Value (DV) column tells you how much of your daily needs are met by 1 serving of the food for each nutrient listed. Choose foods that have less than 5% of the DV of sodium. These foods are considered low in sodium. Foods that have 20% or more of the DV of sodium are considered high in sodium. Some food labels may also list any of the following terms that tell you about the sodium content in the food: ?? Sodium-free: Less than 5 mg in each serving ?? Very low sodium: 35 mg of sodium or less in each serving ?? Low sodium: 140 mg of sodium or less in each serving ?? Reduced sodium: At least 25% less sodium in each serving than the regular type ?? Light in sodium: 50% less sodium in each serving ?? Unsalted or no added salt: No extra salt is added during processing (the food may still contain sodium) Foods to avoid: Salty foods are high in sodium. You should avoid the following: ?? Processed foods: ?? Mixes for cornbread, biscuits, cake, and pudding ?? Instant foods, such as potatoes, cereals, noodles, and rice ?? Packaged foods, such as bread stuffing, rice and pasta mixes, snack dip mixes, and macaroni and cheese ?? Canned foods, such as canned vegetables, soups, broths, sauces, and vegetable or tomato juice ?? Snack foods, such as salted chips, popcorn, pretzels, pork rinds, salted crackers, and salted nuts ?? Frozen foods, such as dinners, entrees, vegetables with sauces, and breaded meats ?? Sauerkraut, pickled vegetables, and other foods prepared in brine ?? Meats and cheeses: ?? Smoked or cured meat, such as corned beef, nobles, ham, hot dogs, and sausage ?? Canned meats or spreads, such as potted meats, sardines, anchovies, and imitation seafood ?? Deli or lunch meats, such as bologna, ham, turkey, and roast beef ?? Processed cheese, such as Togolese cheese and cheese spreads ?? Condiments, sauces, and seasonings: ?? Salt (?? teaspoon of salt contains 575 mg of sodium) ?? Seasonings made with salt, such as garlic salt, celery salt, onion salt, and seasoned salt ?? Regular soy sauce, barbecue sauce, teriyaki sauce, steak sauce, Worcestershire sauce, and most flavored vinegars ?? Canned gravy and mixes ?? Regular condiments, such as mustard, ketchup, and salad dressings ?? Pickles and olives ?? Meat tenderizers and monosodium glutamate (MSG) Foods to include: Read the food label to find the exact amount of sodium in each serving. ?? Bread and cereal: Try to choose breads with less than 80 mg of sodium per serving. ?? Bread, roll, maria luisa, tortilla, or unsalted crackers. ?? Qqooa-ad-xon cereals with less than 5% DV of sodium (examples include shredded wheat and puffed rice) ?? Pasta ?? Vegetables and fruits: ?? Unsalted fresh, frozen, or canned vegetables ?? Fresh, frozen, or canned fruits ?? Fruit juice ?? Dairy: One serving has about 150 mg of sodium. ?? Milk, all types ?? Yogurt ?? Hard cheese, such as cheddar, [place], [place] mauro, or mozzarella ?? Meat and other protein foods: Some raw meats may have added sodium. ?? Plain meats, fish, and poultry ?? Eggs ?? Other foods: ?? Homemade pudding ?? Unsalted nuts, popcorn, or pretzels ?? Unsalted butter or margarine Ways to decrease sodium: ?? Add spices and herbs to foods instead of salt during cooking. Use salt-free seasonings to add flavor to foods. Examples include onion powder, garlic powder, basil, chiang powder, paprika, and parsley. Try lemon or eagle juice or vinegar to give foods a tart flavor. Use hot peppers, pepper, or cayenne pepper to add a spicy flavor to foods. ?? Do not keep a salt shaker at your kitchen table. This may help keep you from adding salt to foodat the table. It may take time to get used to enjoying the natural flavor of food instead of addingsalt. Talk to your healthcare provider before you use salt substitutes. Some salt substitutes have a high amount of potassium and need to be avoided if you have kidney disease. ?? Choose low-sodium foods at restaurants. Meals from restaurants are often high in sodium. Some restaurants have nutrition information on the menu that tells you the amount of sodium in their foods.If possible, ask for your food to be prepared with less, or no salt. ?? Shop for unsalted or low-sodium foods and snacks at the grocery store. Examples include unsaltedor low-sodium broths, soups, and canned vegetables. Choose fresh or frozen vegetables instead. Choose unsalted nuts or seeds or fresh fruits or vegetables as snacks. Read food labels and choose salt-free, very low-sodium, or low-sodium foods. ?? 2017 [employer] Information is for End User's use only and may not be sold, redistributed or otherwise used for commercial purposes. All illustrations and images included in CareNotes?? are the copyrighted property of [employer] or [employer]. The above information is an first aid teacher only. It is not intended as medical [...] under the skin nightly 45 mL 1 03/07/2021 1 hydroCHLOROthiazide (HYDRODIURIL) 25 mg tabletIndications:H ypertension associated with diabetes (HCC) Take 1 tablet (25 mg total) by mouth daily 90 tablet 1 03/07/2021 2 documented in this encounter Progress Notes * Cherelle Corcoran MD - 03/07/2021 4:15 PM CDT Assessment/Plan: Assessment/Plan Diagnoses and all orders for this visit: Hypertension associated with diabetes (HCC) (Primary) Assessment & Plan: Blood pressure at goal Continue hydrochlorothiazide 25mg Continue 10mg lisinopril Orders: - hydroCHLOROthiazide (HYDRODIURIL) 25 mg tablet; Take 1 tablet (25 mg total) by mouth daily Uncontrolled type 2 diabetes mellitus with hyperglycemia (CMS/HCC) ([facility]) Assessment & Plan: Continue jardiance 25mg Increase lantus to 50 units Continue trulicity 4.5mg weekly Orders: - insulin glargine (LANTUS) 100 unit/mL (3 mL) pen for injection; Inject 50 Units under the skin nightly Other diabetic neurological complication associated with type 2 diabetes mellitus (HCC) Assessment & Plan: Improved Continue lyrica twice a day F/u 1 month or sooner as needed if symptoms not improving or worsen. Strict return/ED precautions discussed. Subjective: Barbara Chakraborty is a 70 y.o. female here for follow up hypertension HPI Chief Complaint Patient presents with ??? Follow-up Peripheral edema improved on hydrochlorothiazide, has been out for a couple days, worsened. Not wearing compression stockings Hypertension: on 10mg lisinopril & 25mg hydrochlorothiazide Diabetes mellitus: 4.5mg trulicity, 47 units lantus, & 25mg jardiance. No hypoglycemia. States blood sugar in 180's in AM. Neuropathy improved on lyrica Review of Systems Constitutional: Negative for fever. HENT: Negative for sore throat. Respiratory: Negative for cough and shortness of breath. Cardiovascular: Positive for leg swelling. Gastrointestinal: Negative for diarrhea and vomiting. Musculoskeletal: Negative for myalgias. Neurological: Positive for numbness (improved). Objective: Vital signs were reviewed. Vitals: 03/07/21 1632 BP: 120/60 BP Location: Right arm Patient Position: Sitting Pulse: 89 Resp: 16 Temp: 36.4 ??C (97.6 ??F) TempSrc: Temporal SpO2: 96% Weight: 64.8 kg (142 lb 14.4 oz) Height: 157 cm (5' 1.81 ) Physical Exam Gen: NAD, comfortable, appears as stated age Eyes: no conjunctival injection, EOMI ENMT: external ears symmetric CV: Regular rate, peripheral edema Pulm: no increased work of breathing Skin: no rashes or nodules, warm and dry MSK/Neuro: symmetric limb movement Psych: alert and oriented to person/place Cherelle Corcoran MD documented in this encounter Miscellaneous Notes * Assessment & Plan Note - Cherelle Corcoran MD - 03/07/2021 4:44 PM CDTAssociated Problem(s): Diabetic neuropathy (HCC) (Resolved 05/16/2024) Improved Continue lyrica twice a day * Assessment & Plan Note - Cherelle Corcoran MD - 03/07/2021 4:44 PM CDTAssociated Problem(s): Type 2 diabetes mellitus with diabetic neuropathy, with long-term current use of insulin (HCC) Continue jardiance 25mg Increase lantus to 50 units Continue trulicity 4.5mg weekly * Assessment & Plan Note - Cherelle Corcoran MD - 03/07/2021 4:42 PM CDTAssociated Problem(s): Primary hypertension Blood pressure at goal Continue hydrochlorothiazide 25mg Continue 10mg lisinopril documented in this encounter Plan of Treatment Upcoming Encounters Date Type Department Care Team (Latest Contact Info) Description 07/13/2024 9:00 AM PBX SUPERVISOR Hospital Encounter [facility] [address] [place] [address] Jaya Grier MD [address] [address] 07/13/2024 9:00 AM PBX SUPERVISOR - 07/13/2024 9:30 AM PBX SUPERVISOR Surgery [facility] [address] [place] [address] Jaya Grier MD [address] [address] ESOPHAGOGASTRODUODENOSCOPY Scheduled Procedures Name Priority Associated Diagnoses Date/Ti me ESOPHAGOGASTRODUODENOSCOPY Anemia, unspecified type Gastritis without bleeding, unspecified chronicity, unspecified gastritis type 07/13/2024 9:00 AM PBX SUPERVISOR COLONOSCOPY Iron deficiency anemia due to chronic blood loss documented as of this encounter Visit Diagnoses Diagnosis Hypertension associated with diabetes (HCC)- Primary Unspecified essential hypertension Uncontrolled type 2 diabetes mellitus with hyperglycemia (HCC) Other diabetic neurological complication associated with type 2 diabetes mellitus (HCC) Need for vaccination Need for prophylactic vaccination and inoculation against unspecified single disease Anemia, unspecified type Gastritis without bleeding, unspecified chronicity, unspecified gastritis type documented in this encounter Discontinued Medications Medication Sig Discontinue Reason Start Date End Da te hydroCHLOROthiazide (HYDRODIURIL) 12.5 mg tabletIndications:Hypert ension associated with diabetes (HCC) TAKE 1 TABLET(12.5 MG) BY MOUTH DAILY Reorder 02/08/2021 03/07/2021 LANTUS 100 unit/mL (3 mL) pen for injectionIndications:Unc ontrolled type 2 diabetes mellitus with hyperglycemia (HCC) ADMINISTER 42 UNITS UNDER THE SKIN DAILY Reorder 12/10/2020 03/07/2021 documented as of this encounter Orders Immunization/Injection Count Last Ordered Date First Ordered Date FLU VACCINE HIGH DOSE QUAD P F 65Y+ IM - FLUZONE HIGH DOS 1 03/07/2021 documented in this encounter Care Teams Budget Report Clerk Relationship Specialty Start Date End Date Cherelle Corcoran MD PCP - General Family Medicine 08/30/19 Mark Queen MD Consulting Physician Infectious Diseases 01/10/20 documented as of this encounter
--- OUTSIDE RECORDS SUMMARY | 2024-07-04 04:18 | XMS_ITS | Encounter Summary ---
Author Organization [facility] Address [address] [place] [address] Care Team Providers Care Product Inspection Coordinator Name Role Phone Cherelle Corcoran MD Primary Care Pro vider Mark Queen MD Unavailable [phone] Encounter Details Date Type Department Care Team (Late st Contact Info) Description 08/02/2021 Telephone [facility] Behavioral [facility] [id number] [address] [place] [id number] [address] Social History Tobacco Use Types [...] file Legal Sex Female 9:[address] SUPERVISOR Gender Identity Female 02/08/2020 6:39 PM CDT Sexual Orientation Not on file documented as of this encounter Miscellaneous Notes * Telephone Encounter - Luz Maria Mo - 08/02/2021 11:15 AM CST Patient's daughter called on 08/02/[address] Swenson that her mother is in [facility]. She thinks she the Haldol is affecting her kidneys. R VEHIC[address] OPERATOR [address] SUPERVISOR documented in this encounter Plan of Treatment Upcoming Encounters Date Type Department Care Team (Latest Contact Info) Description 07/13/2024 9:[address] SUPERVISOR Hospital Encounter [facility] [address] [place] [address] Jaya Grier MD [address] [place] [address] [address] GA[address]ES [address] [place] [address] 07/13/2024 9:[address] SUPERVISOR - 07/13/2024 9:[address] SUPERVISOR Surgery [facility] [address] [place] [address] Jaya Grier MD [facility] [address] GA[address]ES [address] [place] [address] ESOPHAGOGASTRODUODENOSCOPY Scheduled Procedures Name Priority Associated Diagnoses Date/Ti nd ESOPHAGOGASTRODUODENOSCOPY Anemia, unspecified type Gastritis without bleeding, unspecified chronicity, unspecified gastritis type 07/13/2024 9:[address] SUPERVISOR COLONOSCOPY Iron deficiency anemia due to chronic blood loss documented as of this encounter Visit Diagnoses Not on filedocumented in this encounter Additional Health Concerns Infection Onset Date Last Indicated Resolved Time COVID19 08/13/2021 08/13/2021 08/24/2021 3:[address] SUPERVISOR documented as of this encounter Care Teams Product Inspection Coordinator Relationship Specialty Start Date End Date Cherelle Corcoran MD PCP - General Family Medicine 08/30/19 Mark Queen MD Consulting Physician Infectious Diseases 01/10/20 documented as of this encounter
--- OUTSIDE RECORDS SUMMARY | 2024-07-04 04:18 | XMS_ITS | Encounter Summary ---
Author Organization [facility] Address [address] [place] [address] Care Team Providers Care Netting Weaver Name Role Phone Cherelle Corcoran MD Primary Care Pro vider Mark Queen MD Unavailable [phone] Reason for Referral * Consultation (Routine) - Closed Specialty Diagnoses / Procedures Referred By Maryse t Referred To Contact Endocrinology Diagnoses Type 2 diabetes mellitus with diabetic neuropathy, with long-term current use of insulin (HCC) Cherelle Corcoran MD Phone: tel: fax: [facility] (All Locations) Referral ID Status Reason Start Date Expiration Date V isits Requested Visits Authorized [id number] Closed Specialty Services Required 08/05/2021 09/04/2022 1 1 Question Answer Please select the performing region: [facility] (All Locations) [[id number]] # of visits: 1 VERY DRIVER Reason for Visit * Reason Comments Hospital Follow Up D/c 08/04/21. [facility] Encounter Details Date Type Department Care Team (Late st Contact Info) Description 08/05/2021 10:00 AM DELIVERY DRIVER Office Visit [facility] Primary Care [address] [place] [phone] Cherelle Corcoran MD [facility] [id number] Weakness of both lower extremities (Primary Dx); Stage 3b chronic kidney disease (HCC); Type 2 diabetes mellitus with diabetic neuropathy, with long-term current use of insulin (CMS/HCC) (HCC); Hypertension associated with diabetes (HCC); Hyperlipidemia associated with type 2 diabetes mellitus (HCC); Schizoaffective disorder, bipolar type (CMS/HCC) (HCC) [...] on file Legal Sex Female 9:03 AM DELIVERY DRIVER Gender Identity Female 02/08/2020 6:39 PM CDT Sexual Orientation Not on file documented as of this encounter Last Filed Vital Signs Vital Sign Reading Time Taken Comments Blood Pressure 116/66 08/05/2021 10:10 AM DELIVERY DRIVER Pulse 75 08/05/2021 10:10 AM DELIVERY DRIVER Temperature 35.8 ??C (96.5 ??F) 08/05/2021 10:[address] Respiratory Rate 16 08/05/2021 10:10 AM DELIVERY DRIVER Oxygen Saturation 95% 08/05/2021 10:10 AM DELIVERY DRIVER Inhaled Oxygen Concentration - - Weight 64 kg (141 lb 1.6 oz) 08/05/2021 10:10 AM DELIVERY DRIVER Height 157.5 cm (5' 2 ) 08/05/2021 10:10 AM DELIVERY DRIVER Body Mass Index 25.81 08/05/2021 10:10 AM DELIVERY DRIVER documented in this encounter Progress Notes * Cherelle Corcoran MD - 08/05/2021 10:00 AM CST Images from the original [...] I have noted any changes. Admission Date: 07/31/2021 Discharge Date: 08/04/2021 Date of Initial Post-discharge Interactive Contact: 08/04/2021 Complexity of Medical Decision Making: high Metabolic Lab Results: Body mass index is 25.81 kg/m??. Glucose: Glucose Date Value Ref Range Status 08/08/2021 151 70 - 199 mg/dL Final Comment: Interpretive [...] Current interpretive data was last revised 2017. Glucose, POC Date Value Ref Range Status 08/08/2021 159 70 - 199 mg/dL Final Lab Results Component Value Date WBC 10.8 (H) 08/08/2021 HGB 8.7 (L) 08/08/2021 HCT 28.5 (L) 08/08/2021 MCV 94.7 08/08/2021 Lab Results Component Value Date GLUCOSE 151 08/08/2021 CALCIUM 9.4 08/08/2021 SODIUM 143 08/08/2021 POTASSIUM 4.3 08/08/2021 CO2 23 08/08/2021 CHLORIDE 110 08/08/2021 BUNSER 31 (H) 08/08/2021 CREATININE 1.72 (H) 08/08/2021 Major Procedures and Tests: Major Procedures and Tests Performed During Inpatient Stay: Studies Pending at Discharge (Includes Lab and Radiology) Blood cultures pending Studies pending at discahrge (includes Lab and Radiology) have been reviewed with the patient/caregiver. Interval History: Taken in for leg weakness. Thought had infection, but unclear etiology. Urine negative, although did have some difficulty urinating. D/c on augmentin. STEFANO, with creatinine at 3.9, improved to 1.9 2d prior to d/c. D/c on amlodipine 5mg and hydralazine 25mg three times a day, lisinopril, hydrochlorothiazide, jardiance and trulicity d/c. Cardiology increased amlodipine to 10mg daily and d/c hydralazine this AM. Diabetes mellitus: changed lantus to 15 units twice a day, daughter notes prior to hospitalization had been having some hypoglycemia Hyperlipidemia: on 40mg atorvastatin Schizoaffective disorder: following with psychiatry, recently changed from risperidone to haldolol ~1 month ago Problem Schizoaffective Disorder, Bipolar Type ([facility]) ([facility]) Hyperlipidemia Associated With Type 2 Diabetes Mellitus ([facility]) Hypertension Associated With Diabetes ([facility]) Type 2 diabetes mellitus with diabetic neuropathy, with long-term current use of insulin ([facility]) ([facility]) No current facility-administered medications for this visit. No current outpatient medications on file. Facility-Administered Medications Ordered in Other Visits Medication Dose Route Frequency Provider Last Rate Last Admin ??? acetaminophen (TYLENOL) tablet 650 mg 650 mg oral Q4H PRN Paula Velazquez MD 650 mg at 08/08/21 2104 ??? atorvastatin (LIPITOR) tablet 40 mg 40 mg oral Daily Paula Velazquez MD 40 mg at 08/08/21 0820 ??? bisacodyL (DULCOLAX) suppository 10 mg 10 mg rectal Daily PRN Paula Velazquez MD ??? bisacodyl EC (DULCOLAX EC) tablet 10 mg 10 mg oral Daily PRN Paula Velazquez MD ??? dextrose (GLUTOSE) 40 % gel 15 g 15 g oral Q15 Min PRN Paula Velazquez MD Or ??? dextrose (D10W) 10% bolus 250 mL 250 mL intravenous Q15 Min PRN Paula Velazquez MD ??? famotidine (PEPCID) tablet 20 mg 20 mg oral Daily Paula Velazquez MD 20 mg at 08/08/21 0820 ??? glucagon injection 1 mg 1 mg intramuscular Q30 Min PRN Paula Velazquez MD ??? heparin 5,000 unit/mL injection 5,000 Units 5,000 Units subcutaneous Q8H [facility] Paula Velazquez MD 5,000 Units at 08/09/21 0532 ??? insulin glargine (LANTUS, SEMGLEE) 100 unit/mL injection 16 Units 0.25 Units/kg subcutaneous Nightly Paula Velazquez MD 16 Units at 08/08/212104 ??? insulin lispro (HumaLOG, ADMELOG) 100 unit/mL injection 0-10 Units 0-10 Units subcutaneous TID with meals Paula Velazquez MD 2 Units at 08/08/21 08 ??? insulin lispro (HumaLOG, ADMELOG) 100 unit/mL injection 0-5 Units 0-5 Units subcutaneous Nightly Paula Velazquez MD 1 Units at 08/08/212104 ??? insulin lispro (HumaLOG, ADMELOG) 100 unit/mL injection 5 Units 0.083 Units/kg subcutaneous TIDwith meals Paula Velazquez MD 5 Units at 08/08/21 1729 ??? polyethylene glycol (MIRALAX) packet 17 g 17 g oral Daily PRN Paula Velazquez MD ??? ramelteon (ROZEREM) tablet 8 mg 8 mg oral Nightly PRN Paula Velazquez MD 8 mg at 08/08/212103 ??? [Held by Provider] risperiDONE (RisperDAL) tablet 2 mg 2 mg oral Nightly Paula Velazquez MD ??? sodium chloride 0.9% flush 0.5-20 mL 0.5-20 mL intra-catheter Q8H [facility] Paula Velazquez MD 10 mL at 08/09/21 0532 ??? sodium chloride 0.9% flush 0.5-20 mL 0.5-20 mL intra-catheter PRN Paula Velazquez MD Review of Systems: Review of Systems Cardiovascular: Negative for chest pain. Gastrointestinal: Positive for abdominal pain. Neurological: Positive for tremors and weakness. Psychiatric/Behavioral: Positive for confusion. Physical Exam: BP 116/66 (BP Location: Left arm, Patient Position: Sitting) Pulse 75 Temp (!) 35.8 ??C (96.5 ??F) (Temporal) Resp 16 Ht 157.5 cm (5' 2 ) Wt 64 kg (141 lb 1.6 oz) SpO2 95% BMI 25.81 kg/m?? Physical Exam Gen: NAD, comfortable, appears as stated age Eyes: no conjunctival injection, EOMI ENMT: external ears symmetric CV: RRR without murmur, rub, gallop. Pulm: good respiratory effort, CTAB no rhonchi, rales, or wheezes Abd: soft, non-tender, non-distended Skin: no rashes or nodules, warm and dry Ext: No lower extremity edema MSK/Neuro: symmetric limb movement, using wheelchair for ambulation, lower extremities strength 4/5 Psych: alert and oriented to person, falling asleep during visit Assessment/Plan Diagnoses and all orders for this visit: Weakness of both lower extremities (Primary) - Ambulatory referral to Neurology; Future Stage 3b chronic kidney disease ([facility]) Comments: Recheck cr/gfr today Type 2 diabetes mellitus with diabetic neuropathy, with long-term current use of insulin ([facility]) ([facility]) Assessment & Plan: Continue 15 units lantus twice a day Orders: - Hemoglobin A1c; Future - Ambulatory referral to Endocrinology; Future Hypertension associated with diabetes ([facility]) Assessment & Plan: Blood pressure at goal Increase amlodipine to 10mg & d/c hydralazine per cardiology Hyperlipidemia associated with type 2 diabetes mellitus ([facility]) Assessment & Plan: Continue 40mg atorvastatin Schizoaffective disorder, bipolar type ([facility]) ([facility]) Assessment & Plan: Following with psychiatry Coordination of Home care services and follow-up with specialist appointments confirmed. Instructions have been provided to and reviewed with the patient/acute care surgeon prior to discharge. Cherelle Corcoran MD VERY DRIVER documented in this encounter Miscellaneous Notes * Assessment & Plan Note - Cherelle Corcoran MD - 08/09/2021 5:41 AM CSTAssociated Problem(s): Schizoaffective disorder, bipolar type (CMS/HCC) (HCC) Following with psychiatry VERY DRIVER * Assessment & Plan Note - Cherelle Corcoran MD - 08/05/2021 10:35 AM CSTAssociated Problem(s): Mixed hyperlipidemia Continue 40mg atorvastatin VERY DRIVER * Assessment & Plan Note - Cherelle Corcoran MD - 08/05/2021 10:35 AM CSTAssociated Problem(s): Primary hypertension Blood pressure at goal Increase amlodipine to 10mg & d/c hydralazine per cardiology VERY DRIVER * Assessment & Plan Note - Cherelle Corcoran MD - 08/05/2021 10:35 AM CSTAssociated Problem(s): Type 2 diabetes mellitus with diabetic neuropathy, with long-term current use of insulin ([facility]) Continue 15 units lantus twice a day VERY DRIVER documented in this encounter Plan of Treatment Upcoming Encounters Date Type Department Care Team (Latest Contact Info) Description 07/13/2024 9:00 AM DELIVERY DRIVER Hospital Encounter [facility] [address] [place] [address] Jaya Grier MD [facility] [address] 07/13/2024 9:00 AM DELIVERY DRIVER - 07/13/2024 9:30 AM DELIVERY DRIVER Surgery [facility] [address] [place] [address] Jaya Grier MD [address] [place] [address] ESOPHAGOGASTRODUODENOSCOPY Scheduled Procedures Name Priority Associated Diagnoses Date/Ti me ESOPHAGOGASTRODUODENOSCOPY Anemia, unspecified type Gastritis without bleeding, unspecified chronicity, unspecified gastritis type 07/13/2024 9:00 AM DELIVERY DRIVER COLONOSCOPY Iron deficiency anemia due to chronic blood loss Scheduled Referrals Name Type Priority Associated Diagnoses Order Schedule Ambulatory referral to Endocrinology Outpatient Referral Routine Type 2 diabetes mellitus with diabetic neuropathy, with long-term current use of insulin ([facility]) (HCC) Expected: 08/19/2021 (Approximate), Expires: 08/05/2022 documented as of this encounter Results * (ABNORMAL) Hemoglobin A1c (08/05/2021 11:07 AM DELIVERY DRIVER) Hgb A1C 8.0(H) 4.0 - 5.6 % NILSA RODRIGES Comment:Testing performed by : [facility], [address] [place] [address]., [id number] Estimated Average Glucose 183 mg/dL NILSA RODRIGES Comment: The ADA recommends reporting an estimated Average Glucose (eAG) with all Hemoglobin A1c results using the equation derived from a study of 507 normal and diabetic adults. ??Minority populations were underrepresented and children were not included. ?? (Diabetes Care 31:4401-6307, 2008). ??The eAG is not equivalent to a fasting glucose. Testing performed by: [address] [address] Blood 08/05/2021 11:0 7 AM DELIVERY DRIVER 08/05/2021 1:59 PM DELIVERY DRIVER us Cherelle Corcoran MD LAB BLOOD ORDERAB LES Final Result [facility] [address] [place] [address] documented in this encounter Visit Diagnoses Diagnosis Weakness of both lower extremities- Primary Stage 3b chronic kidney disease (HCC) Type 2 diabetes mellitus with diabetic neuropathy, with long-term current use of insulin (HCC) Hypertension associated with diabetes (HCC) Unspecified essential hypertension Hyperlipidemia associated with type 2 diabetes mellitus (HCC) Schizoaffective disorder, bipolar type (CMS/HCC) (HCC) Schizoaffective disorder, unspecified condition Anemia, unspecified type Gastritis without bleeding, unspecified chronicity, unspecified gastritis type documented in this encounter Care Teams Netting Weaver Relationship Specialty Start Date End Date Cherelle Corcoran MD PCP - General Family Medicine 08/30/19 Mark Queen MD Consulting Physician Infectious Diseases 01/10/20 documented as of this encounter
--- OUTSIDE RECORDS SUMMARY | 2024-07-04 04:18 | XMS_ITS | Encounter Summary ---
Author Organization [facility] Address [address] [place] [address] Care Team Providers Care Retail Merchandiser Name Role Phone Cherelle Corcoran MD Primary Care Pro vider Mark Queen MD Unavailable [phone] Reason for Visit * Reason Comments Follow-up Med Management Encounter Details Date Type Department Care Team (Late st Contact Info) Description 08/07/2021 1:45 PM MEDICAL SUPERVISOR Telemedicine [facility] Behavioral Health [address] [phone] [place] [address] [address] Delirium (Primary Dx); Schizoaffective disorder, bipolar type (CMS/HCC) (HCC) Social [...] file Legal Sex Female 9:03 AM MEDICAL SUPERVISOR Gender Identity Female 02/08/2020 6:39 PM CDT Sexual Orientation Not on file documented as of this encounter Ordered Prescriptions Prescription Sig Dispense Quantity Refills Last Filled Start Date End Date risperiDONE (RisperDAL) 2 mg tablet Take 1 tablet (2 mg total) by mouth nightly 30 tablet 11 08/07/2021 3 documented in this encounter Progress Notes * Adryan Swenson MD - 08/07/2021 1:45 PM CST Images from the original note were not included. This was a telemedicine visit with Barbara Chakraborty alone which took place via real- time video connection with Zoom. During the visit, I was located at home in [place], [place], and the patient was located at home in the [facility]. Time started: 1:45 p.m. Time ended: 2:00 p.m. My total encounter time on 08/07/2021 was 20 minutes which was spent in [...] Diagnoses and all orders for this visit: Delirium (Primary) Assessment & Plan: Subacute, persistent, hospitalized recently. She is alert and oriented to person and place. States that she believes it is 2019 and cannot identify the month. When told that recently it was Iqbal's Day to try to provide a prompt, she states that she thinks it Farida's Day is in August or July. Low threshold for having her go back to the hospital. Daughter to discuss further with primary care physician. See additional problems. Schizoaffective disorder, bipolar type (CMS/HCC) ([facility]) Assessment & Plan: Chronic condition, switch to Haldol and has had multiple different problems including acute kidney failure in infectious process. Records not available at outside hospital-[facility] [place]. Confounded by delirium. Currently experiencing delirium will discontinue Haldol and return to Risperdal as previouslytaking. Risperdal was discontinued due to poorly-controlled diabetes. Monitor in 1 to 2 weeks. Other orders - risperiDONE (RisperDAL) 2 mg tablet; Take 1 tablet (2 mg total) by mouth nightly Follow-up after hospital outcome. Full informed consent provided by the patient [...] Current issues reported by the patient: Daughter provides the following information: Hospitalized with [...] Associated poorly controlled diabetes. Only previous psychiatric [id number] or 1997. 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 Psychiatric/Behavioral: Positive for confusion, dysphoric mood and hallucinations (they're out to get me or harm me). Negative for agitation, behavioral problems, decreased concentration, self-injury, sleep disturbance and suicidal ideas. The patient is nervous/anxious. The patient is not hyperactive. PHYSICAL EXAM Physical Exam Constitutional: General: She is not in acute distress. Appearance: Normal appearance. She is obese. She is not toxic-appearing. HENT: Head: Normocephalic. Nose: Nose normal. Eyes: Extraocular Movements: Extraocular movements intact. Neurological: Mental Status: She is alert. Psychiatric: Attention and Perception: She is inattentive. Mood and Affect: Affect is flat. Speech: Speech is delayed. Behavior: Behavior is slowed and withdrawn. Cognition and Memory: Cognition is impaired. Memory [...] LABS Lab Results Component Value Date WBC 9.7 08/05/2021 HGB 10.2 (L) 08/05/2021 HCT 32.7 (L) 08/05/2021 MCV 94.8 08/05/2021 RDWSD 52.4 (H) 08/05/2021 LABPLAT 350 08/05/2021 Lab Results Component Value Date ALT 19 08/05/2021 AST 26 08/05/2021 ALKPHOS 104 08/05/2021 BILITOT 0.4 08/05/2021 ALBUMIN 3.8 08/05/2021 Lab Results Component Value Date SODIUM 144 08/05/2021 POTASSIUM 4.3 08/05/2021 CO2 23 08/05/2021 BUNSER 24 08/05/2021 GLUCOSE 119 08/05/2021 CREATININE 2.20 (H) 08/05/2021 CHLORIDE 106 08/05/2021 CALCIUM 9.5 08/05/2021 PROTEIN 7.6 01/19/2017 Lab on 08/05/2021 Component Date Value ??? [...] Value ??? Hemoglobin A1C, POC 08/28/2020 8.3 Adryan Swenson MD [facility]ry Office: CAL SUPERVISOR documented in this encounter Miscellaneous Notes * Assessment & Plan Note - Adryan Swenson MD - 08/07/2021 3:28 PM MEDICAL SUPERVISOR Associated Problem(s): Delirium (Resolved 10/10/2022) Subacute, persistent, hospitalized recently. She is alert [...] with primary care physician. See additional problems. CAL SUPERVISOR * Assessment & Plan Note - Adryan Swenson MD - 08/07/2021 3:27 PM MEDICAL SUPERVISOR Associated Problem(s): Schizoaffective disorder, bipolar type (CMS/HCC) (HCC) Chronic condition, switch to Haldol and has had multiple different problems including acute kidney failure in infectious process. Records not available at outside hospital-[facility] [place]. Confounded by delirium. Currently experiencing delirium will discontinue Haldol and return to Risperdal as previouslytaking. Risperdal was discontinued due to poorly-controlled diabetes. Monitor in 1 to 2 weeks. CAL SUPERVISOR documented in this encounter Plan of Treatment Upcoming Encounters Date Type Department Care Team (Latest Contact Info) Description 07/13/2024 9:00 AM MEDICAL SUPERVISOR Hospital Encounter [facility] GI Lab [address] [place] [address] Jaya Grier MD [address] [place] [address] 07/13/2024 9:00 AM MEDICAL SUPERVISOR - 07/13/2024 9:30 AM MEDICAL SUPERVISOR Surgery [facility] [address] [place] [address] Jaya Grier MD [address] [place] [address] ESOPHAGOGASTRODUODENOSCOPY Scheduled Procedures Name Priority Associated Diagnoses Date/Ti nd ESOPHAGOGASTRODUODENOSCOPY Anemia, unspecified type Gastritis without bleeding, unspecified chronicity, unspecified gastritis type 07/13/2024 9:00 AM MEDICAL SUPERVISOR COLONOSCOPY Iron deficiency anemia due to chronic blood loss documented as of this encounter Visit Diagnoses Diagnosis Delirium- Primary Other alteration of consciousness Schizoaffective disorder, bipolar type (CMS/HCC) ([facility]) Schizoaffective disorder, unspecified condition Anemia, unspecified type Gastritis without bleeding, unspecified chronicity, unspecified gastritis type documented in this encounter Care Teams Retail Merchandiser Relationship Specialty Start Date End Date Cherelle Corcoran MD PCP - General Family Medicine 08/30/19 Mark Queen MD Consulting Physician Infectious Diseases 01/10/20 documented as of this encounter
--- OUTSIDE RECORDS SUMMARY | 2024-07-04 04:18 | XMS_ITS | Encounter Summary ---
Author Organization [facility] Address [address] [place] [address] Care Team Providers Care Iv Rn Name Role Phone Cherelle Corcoran MD Primary Care Pro vider Mark Queen MD Unavailable [phone] Encounter Details Date Type Department Care Team (Late st Contact Info) Description 01/16/[address] [facility] Primary Care [address] [facility] [address] [place] [address] Cherelle Corcoran MD [facility] [facility] [address] [place] [address] Social History Tobacco Use Types [...] on file Legal Sex Female 9:03 AM AIRPLANE DESIGNER Gender Identity Female 02/08/2020 6:39 PM CDT Sexual Orientation Not on file documented as of this encounter Ordered Prescriptions Prescription Sig Dispense Quantity Refills Last Filled Start Date End Date omeprazole (PriLOSEC) 20 mg capsule Take 1 capsule (20 mg total) by mouth daily 90 capsule 01/16/2021 documented in this encounter Miscellaneous Notes * Telephone Encounter - Anshu Platt MA - 01/16/2021 4:46 PM CDT Rx refill. documented in this encounter Plan of Treatment Upcoming Encounters Date Type Department Care Team (Latest Contact Info) Description 07/13/2024 9:00 AM AIRPLANE DESIGNER Hospital Encounter [facility] GI Lab [address] [place] [address] Jaya Grier MD [address] [place] [address] [address] [place] [address] 07/13/2024 9:00 AM AIRPLANE DESIGNER - 07/13/2024 9:30 AM AIRPLANE DESIGNER Surgery [facility] Lab [address] [place] [address] Jaya Grier MD [address] [place] [address] [address] [place] [address] ESOPHAGOGASTRODUODENOSCOPY Scheduled Procedures Name Priority Associated Diagnoses Date/Ti wa ESOPHAGOGASTRODUODENOSCOPY Anemia, unspecified type Gastritis without bleeding, unspecified chronicity, unspecified gastritis type 07/13/2024 9:00 AM AIRPLANE DESIGNER COLONOSCOPY Iron deficiency anemia due to chronic blood loss documented as of this encounter Visit Diagnoses Not on filedocumented in this encounter Discontinued Medications Medication Sig Discontinue Reason Start Date End Da te omeprazole (PriLOSEC) 20 mg capsule Take 1 capsule (20 mg total) by mouth daily Reorder 07/24/2020 01/16/2021 documented as of this encounter Additional Health Concerns Infection Onset Date Last Indicated Resolved Time MRSA 01/06/2020 01/06/2020 02/06/2021 5:00 AM CDT documented as of this encounter Care Teams Iv Rn Relationship Specialty Start Date End Date Cherelle Corcoran MD PCP - General Family Medicine 08/30/19 Mark Queen MD Consulting Physician Infectious Diseases 01/10/20 documented as of this encounter
--- OUTSIDE RECORDS SUMMARY | 2024-07-04 04:18 | XMS_ITS | Encounter Summary ---
Author Organization [facility] Address [address] [facility] [address] [place] [address] Care Team Providers Care Sec Accountant Name Role Phone Cherelle Corcoran MD Primary Care Pro vider Mark Queen MD Unavailable [phone] Encounter Details Date Type Department Care Team (Late st Contact Info) Description 07/31/2021 Orders Only [facility] Information Management [address] [place] [address] Scanning, Provider Social History Tobacco [...] file Legal Sex Female 9:03 AM SUPERVISOR BLOOMING MILL Gender Identity Female 02/08/2020 6:39 PM CDT Sexual Orientation Not on file documented as of this encounter Plan of Treatment Upcoming Encounters Date Type Department Care Team (Latest Contact Info) Description 07/13/2024 9:00 AM SUPERVISOR BLOOMING MILL Hospital Encounter [facility] GI Lab [address] [place] [address] Jaya Grier MD [address] [facility] [address] [place] [address] 07/13/2024 9:00 AM SUPERVISOR BLOOMING MILL - 07/13/2024 9:30 AM SUPERVISOR BLOOMING MILL Surgery [facility] GI Lab [address] [place] [address] Jaya Grier MD [address] [facility] [address] [place] [address] ESOPHAGOGASTRODUODENOSCOPY Scheduled Procedures Name Priority Associated Diagnoses Date/Ti me ESOPHAGOGASTRODUODENOSCOPY Anemia, unspecified type Gastritis without bleeding, unspecified chronicity, unspecified gastritis type 07/13/2024 9:00 AM SUPERVISOR BLOOMING MILL COLONOSCOPY Iron deficiency anemia due to chronic blood loss documented as of this encounter Procedures Procedure Name Priority Date/Time Associated Diagnosis Comments SCAN - RADIOLOGY/IMAGING 07/31/2021 documented in this encounter Results * SCAN - RADIOLOGY/IMAGING (07/31/2021) Anatomical Region Laterality Modality Other us Provider Scanning Edited Result - Final documented in this encounter Visit Diagnoses Not on filedocumented in this encounter Care Teams Sec Accountant Relationship Specialty Start Date End Date Cherelle Corcoran MD PCP - General Family Medicine 08/30/19 Mark Queen MD Consulting Physician Infectious Diseases 01/10/20 documented as of this encounter
--- OUTSIDE RECORDS SUMMARY | 2024-07-04 04:18 | XMS_ITS | Encounter Summary ---
Author Organization [facility] Address [address] [facility] [address] [place] [address] Care Team Providers Care Campground Manager Name Role Phone Cherelle Corcoran MD Primary Care Pro vider Mark Queen MD Unavailable [phone] Reason for Visit * Reason Comments Follow-up Encounter Details Date Type Department Care Team (Latest Contact Info) Description 06/18/2021 10:45 AM SVP OF DIGITAL Office Visit [facility] Primary Care [address] [facility] [address] [place] [address] Cherelle Corcoran MD [address] [place] [address] [address] [place] [address] Uncontrolled type 2 diabetes mellitus with hyperglycemia (CMS/HCC) (HCC) (Primary Dx); Wound of right lower extremity, initial encounter Social History Tobacco Use Types Packs/Day [...] on file Legal Sex Female 9:03 AM SVP OF DIGITAL Gender Identity Female 02/08/2020 6:39 PM CDT Sexual Orientation Not on file documented as of this encounter Last Filed Vital Signs Vital Sign Reading Time Taken Comments Blood Pressure 138/70 06/18/2021 11:05 AM SVP OF DIGITAL Pulse 86 06/18/2021 11:05 AM SVP OF DIGITAL Temperature 36.2 ??C (97.2 ??F) 06/18/2021 11:[address] Respiratory Rate 18 06/18/2021 11:05 AM SVP OF DIGITAL Oxygen Saturation 97% 06/18/2021 11:05 AM SVP OF DIGITAL Inhaled Oxygen Concentration - - Weight 70.8 kg (156 lb 1.6 oz) 06/18/2021 11:05 AM SVP OF DIGITAL Height 157 cm (5' 1.81 ) 06/18/2021 11:05 AM SVP OF DIGITAL Body Mass Index 28.73 06/18/2021 11:05 AM SVP OF DIGITAL documented in this encounter Patient Instructions * Patient Instructions* Cherelle Corcoran MD - 06/18/2021 10:45 AM SVP OF DIGITAL Increase lantus to 60 units nightly If fasting blood sugar still above 140 after 1 week split insulin into 33 units twice a day Send my a [employer] portal message in 2 weeks with blood sugar log OF DIGITAL OF DIGITAL OF DIGITAL documented in this encounter Progress Notes * Cherelle Corcoran MD - 06/18/2021 10:45 AM CST Images from the original note were not included. Assessment/Plan: Assessment/Plan Diagnoses and all orders for this visit: Uncontrolled type 2 diabetes mellitus with hyperglycemia (CMS/HCC) (HCC) (Primary) Assessment & Plan: Increase lantus to 60 units nightly, if blood sugar still above goal after 1 week split into 33 units twice a day Follow up with blood sugar via portal in 2 weeks Continue jardiance 25mg Continue trulicity 4.5mg weekly Wound of right lower extremity, initial encounter Comments: Mild erythema Advise topical abx If worsening let me know and would prescribe oral abx If not improving f/u F/u with blood sugar in 2 weeks or sooner as needed if symptoms not improving or worsen. Strict return/ED precautions discussed. Subjective: Barbara Chakraborty is a 70 y.o. female here for follow up diabetes mellitus HPI Chief Complaint Patient presents with ??? Follow-up Diabetes mellitus: 4.5mg trulicity,??50??units lantus, &??25mg jardiance (daughter is giving toher). No hypoglycemia. States blood sugar in 170-200's in AM Has cut on her leg, ran into something Review of Systems Constitutional: Negative for fever. HENT: Negative for sore throat. Respiratory: Negative for cough and shortness of breath. Gastrointestinal: Negative for diarrhea and vomiting. Musculoskeletal: Negative for myalgias. Skin: Positive for wound. Objective: Vital signs were reviewed. Vitals: 06/18/21 1105 BP: 138/70 BP Location: Left arm Patient Position: Sitting Pulse: 86 Resp: 18 Temp: 36.2 ??C (97.2 ??F) TempSrc: Temporal SpO2: 97% Weight: 70.8 kg (156 lb 1.6 oz) Height: 157 cm (5' 1.81 ) Physical Exam Gen: NAD, comfortable, appears as stated age Eyes: no conjunctival injection, EOMI ENMT: external ears symmetric CV: Regular rate Pulm: no increased work of breathing Skin: ~5mm superficial ulcerated wound on mid R anterior lower leg with mild erythema, warm and dry MSK/Neuro: symmetric limb movement Psych: alert and oriented to person/place/time, appropriate judgment and insight Cherelle Corcoran MD OF DIGITAL documented in this encounter Miscellaneous Notes * Assessment & Plan Note - Cherelle Corcoran MD - 06/18/2021 11:21 AM CSTAssociated Problem(s): Type 2 diabetes mellitus with diabetic neuropathy, with long-term current use of insulin (HCC) Increase lantus to 60 units nightly, if blood sugar still above goal after 1 week split into 33 units twice a day Follow up with blood sugar via portal in 2 weeks Continue jardiance 25mg Continue trulicity 4.5mg weekly OF DIGITAL documented in this encounter Plan of Treatment Upcoming Encounters Date Type Department Care Team (Latest Contact Info) Description 07/13/2024 9:00 AM SVP OF DIGITAL Hospital Encounter [facility] GI Lab [address] [place] [address] Jaya Grier MD [address] [place] [address] [address] [place] [address] 07/13/2024 9:00 AM SVP OF DIGITAL - 07/13/2024 9:30 AM SVP OF DIGITAL Surgery [facility] GI Lab [address] [place] [address] Jaya Grier MD [address] [place] [address] [address] [place] [address] ESOPHAGOGASTRODUODENOSCOPY Scheduled Procedures Name Priority Associated Diagnoses Date/Ti al ESOPHAGOGASTRODUODENOSCOPY Anemia, unspecified type Gastritis without bleeding, unspecified chronicity, unspecified gastritis type 07/13/2024 9:00 AM SVP OF DIGITAL COLONOSCOPY Iron deficiency anemia due to chronic blood loss documented as of this encounter Visit Diagnoses Diagnosis Uncontrolled type 2 diabetes mellitus with hyperglycemia (HCC)- Primary Wound of right lower extremity, initial encounter Anemia, unspecified type Gastritis without bleeding, unspecified chronicity, unspecified gastritis type documented in this encounter Care Teams Campground Manager Relationship Specialty Start Date End Date Cherelle Corcoran MD PCP - General Family Medicine 08/30/19 Mark Queen MD Consulting Physician Infectious Diseases 01/10/20 documented as of this encounter
--- OUTSIDE RECORDS SUMMARY | 2024-07-04 04:18 | XMS_ITS | Encounter Summary ---
Author Organization [facility] Address [address] [facility] [address] [place] [address] Care Team Providers Care Curriculum And Instruction Specialist Name Role Phone Cherelle Corcoran MD Primary Care Pro vider Mark Queen MD Unavailable [phone] Encounter Details Date Type Department Care Team (Late st Contact Info) Description 05/20/2021 Orders Only [facility] Primary Care [address] [facility] [address] [place] [address] Cherelle Corcoran MD [facility]4 [facility] [address] [place] [address] Other diabetic neurological complication associated with type [...] on file Legal Sex Female 9:03 AM PULMONARY FUNCTION TECHNOLOGIST Gender Identity Female 02/08/2020 6:39 PM CDT Sexual Orientation Not on file documented as of this encounter Ordered Prescriptions Prescription Sig Dispense Quantity Refills Last Filled Start Date End Date pregabalin (LYRICA) 150 mg capsuleIndications :Other diabetic neurological complication associated with type 2 diabetes mellitus (HCC) Take 1 capsule (150 mg total) by mouth nightly 30 capsule 05/20/2021 2 documented in this encounter Progress Notes * Cherelle Corcoran MD - 05/20/2021 4:25 PM CST Daughter requesting refill lyrica as ran out yesterday, unable to make last appointment 2/2 insurance issue, is working on resolving and then will schedule follow up. ONARY FUNCTION TECHNOLOGIST documented in this encounter Plan of Treatment Upcoming Encounters Date Type Department Care Team (Latest Contact Info) Description 07/13/2024 9:00 AM PULMONARY FUNCTION TECHNOLOGIST Hospital Encounter [facility] GI Lab [address] [place] [address] Jaya Grier MD [address] [place] [address] [address] [place] [address] 07/13/2024 9:00 AM PULMONARY FUNCTION TECHNOLOGIST - 07/13/2024 9:30 AM PULMONARY FUNCTION TECHNOLOGIST Surgery [facility] GI Lab [address] [place] [address] Jaya Grier MD [address] [place] [address] [address] [place] [address] ESOPHAGOGASTRODUODENOSCOPY Scheduled Procedures Name Priority Associated Diagnoses Date/Ti ct ESOPHAGOGASTRODUODENOSCOPY Anemia, unspecified type Gastritis without bleeding, unspecified chronicity, unspecified gastritis type 07/13/2024 9:00 AM PULMONARY FUNCTION TECHNOLOGIST COLONOSCOPY Iron deficiency anemia due to chronic blood loss documented as of this encounter Visit Diagnoses Diagnosis Other diabetic neurological complication associated with type 2 diabetes mellitus (HCC) Anemia, unspecified type Gastritis without bleeding, unspecified chronicity, unspecified gastritis type documented in this encounter Discontinued Medications Medication Sig Discontinue Reason Start Date End Da te pregabalin (LYRICA) 150 mg capsuleIndications:Other diabetic neurological complication associated with type 2 diabetes mellitus (HCC) Take 1 capsule (150 mg total) by mouth nightly Reorder 04/05/2021 05/20/2021 documented as of this encounter Care Teams Curriculum And Instruction Specialist Relationship Specialty Start Date End Date Cherelle Corcoran MD PCP - General Family Medicine 08/30/19 Mark Queen MD Consulting Physician Infectious Diseases 01/10/20 documented as of this encounter
--- OUTSIDE RECORDS SUMMARY | 2024-07-04 04:18 | XMS_ITS | Encounter Summary ---
Author Organization [facility] Address [address] [facility] [address] [place] [address] Care Team Providers Care Geek Squad Manager Name Role Phone Cherelle Corcoran MD Primary Care Pro vider Mark Queen MD Unavailable [phone] Reason for Visit * Reason Comments Follow-up feet and finger ting ling and numbness Encounter Details Date Type Department Care Team (Latest Contact Info) Description 02/21/2021 4:15 PM CDT Office Visit [facility] Primary Care [address] [place] [phone] Cherelle Corcoran MD [address] [place] [address] Other diabetic neurological complication associated with type 2 diabetes mellitus (HCC) (Primary Dx); Hypertension associated with diabetes (HCC); Uncontrolled type 2 diabetes mellitus with hyperglycemia (CMS/HCC) (HCC) Social History Tobacco Use Types Packs/Day Years Used Date Smoking Tobacco: Never Smokeless Tobacco: Never Alcohol Use Standard Drinks/Week Comments Not Currently 0 (1 standard drink = 0.6 oz pur e alcohol) AUDIT-C Answer Date Recorded Q1: How often do you have a drink containing alc ohol? Never 02/21/2021 Average Number of Drinks Not on file 021 Frequency of Binge Drinking Not on file 07/2020 PHQ-2 Answer Date Recorded PHQ-2 Total Score (If total score is 3 or more points, staff should administer the PHQ-9) 0 01/08/2021 Comments No Sex and Gender Information Value Date Recorded Sex Assigned at Not on file Legal Sex Female 9:[address] SWEEPER Gender Identity Female 02/08/2020 6:39 PM CDT Sexual Orientation Not on file documented as of this encounter Last Filed Vital Signs Vital Sign Reading Time Taken Comments Blood Pressure 146/72 02/21/2021 4:26 PM CDT Pulse 84 02/21/2021 4:26 PM CDT Temperature 37.1 ??C (98.8 ??F) 02/21/2021 4:26 PM CD T Respiratory Rate 16 02/21/2021 4:26 PM CDT Oxygen Saturation 99% 02/21/2021 4:26 PM CDT Inhaled Oxygen Concentration - - Weight 63.8 kg (140 lb 9.6 oz) 02/21/2021 4:26 P M CDT Height 157.5 cm (5' 2 ) 02/21/2021 4:26 PM CDT Body Mass Index 25.72 02/21/2021 4:26 PM CDT documented in this encounter Patient Instructions * Patient Instructions* Cherelle Corcoran MD - 02/21/2021 4:15 PM CDT Take 2 hydrochlorothiazide (total 25mg) documented in this encounter Ordered Prescriptions Prescription Sig Dispense Quantity Refills Last Filled Start Date End Date pregabalin (LYRICA) 75 mg capsuleIndications :Other diabetic neurological complication associated with type 2 diabetes mellitus (HCC) Take 1 capsule (75 mg total) by mouth 2 (two) times a day 60 capsule 02/21/2021 documented in this encounter Progress Notes * Cherelle Corcoran MD - 02/21/2021 4:15 PM CDT Images from the original note were not included. Assessment/Plan: Assessment/Plan Diagnoses and all orders for this visit: Other diabetic neurological complication associated with type 2 diabetes mellitus (HCC) (Primary) Assessment & Plan: Uncontrolled Having difficulty taking gabapentin tid so will switch to lyrica bid Orders: - pregabalin (LYRICA) 75 mg capsule; Take 1 capsule (75 mg total) by mouth 2 (two) times a day Hypertension associated with diabetes ([facility]) Assessment & Plan: Blood pressure above goal Increase hydrochlorothiazide to 25mg Continue 10mg lisinopril Uncontrolled type 2 diabetes mellitus with hyperglycemia (CMS/HCC) (HCC) Assessment & Plan: Lab Results Component Value Date HGBA1C 8.4 (H) 02/07/2021 Continue jardiance 25mg Continue lantus 47 units Continue trulicity 4.5mg weekly F/u 2 weeks or sooner as needed if symptoms not improving or worsen. Strict return/ED precautions discussed. Subjective: Barbara Chakraborty is a 70 y.o. female here for follow up blood pressure HPI Chief Complaint Patient presents with ??? Follow-up feet and finger tingling and numbness Peripheral edema improved on 12.5mg hydrochlorothiazide Hypertension: on 10mg lisinopril & 12.5mg hydrochlorothiazide Diabetes mellitus: 4.5mg trulicity, 47 units lantus, & 25mg jardiance. No hypoglycemia. States blood sugar in 100's, thinks mostly <140 in AM. Review of Systems Constitutional: Negative for fever. HENT: Negative for sore throat. Respiratory: Negative for cough and shortness of breath. Cardiovascular: Positive for leg swelling. Gastrointestinal: Negative for diarrhea and vomiting. Musculoskeletal: Positive for myalgias. Objective: Vital signs were reviewed. Vitals: 02/21/21 1626 BP: 146/72 BP Location: Left arm Patient Position: Sitting Pulse: 84 Resp: 16 Temp: 37.1 ??C (98.8 ??F) TempSrc: Temporal SpO2: 99% Weight: 63.8 kg (140 lb 9.6 oz) Height: 157.5 cm (5' 2 ) Physical Exam Gen: NAD, comfortable, appears as stated age Eyes: no conjunctival injection, EOMI ENMT: external ears symmetric CV: Regular rate and rhythm, no murmurs, rubs or gallops, mild peripheral edema Pulm: no increased work of breathing, clear to asculation bilaterally, no wheezing, rhonchi or rales Skin: no rashes or nodules, warm and dry MSK/Neuro: symmetric limb movement Psych: alert and oriented to person/place Cherelle Corcoran MD documented in this encounter Miscellaneous Notes * Assessment & Plan Note - Cherelle Corcoran MD - 02/22/2021 6:44 AM CDTAssociated Problem(s): Type 2 diabetes mellitus with diabetic neuropathy, with long-term current use of insulin (HCC) Lab Results Component Value Date HGBA1C 8.4 (H) 02/07/2021 Continue jardiance 25mg Continue lantus 47 units Continue trulicity 4.5mg weekly * Assessment & Plan Note - hCerelle Corcoran MD - 02/22/2021 6:33 AM CDTAssociated Problem(s): Diabetic neuropathy (HCC) (Resolved 05/16/2024) Uncontrolled Having difficulty taking gabapentin tid so will switch to lyrica bid * Assessment & Plan Note - Cherelle Corcoran MD - 02/22/2021 6:32 AM CDTAssociated Problem(s): Primary hypertension Blood pressure above goal Increase hydrochlorothiazide to 25mg Continue 10mg lisinopril documented in this encounter Plan of Treatment Upcoming Encounters Date Type Department Care Team (Latest Contact Info) Description 07/13/2024 9:[address] Hospital Encounter [facility] GI Lab [address] [place], [place] [id number] Jaya Grier MD [address] [address] 07/13/2024 9:[address] - 07/13/2024 9:[address] SW[address]PER Surgery [facility] GI Lab [address] [place] [address] Jaya Grier MD [address] [address] ESOPHAGOGASTRODUODENOSCOPY Scheduled Procedures Name Priority Associated Diagnoses Date/Ti me ESOPHAGOGASTRODUODENOSCOPY Anemia, unspecified type Gastritis without bleeding, unspecified chronicity, unspecified gastritis type 07/13/2024 9:[address] SWEEPER COLONOSCOPY Iron deficiency anemia due to chronic blood loss documented as of this encounter Visit Diagnoses Diagnosis Other diabetic neurological complication associated with type 2 diabetes mellitus (HCC)- Primary Hypertension associated with diabetes (HCC) Unspecified essential hypertension Uncontrolled type 2 diabetes mellitus with hyperglycemia (HCC) Anemia, unspecified type Gastritis without bleeding, unspecified chronicity, unspecified gastritis type documented in this encounter Discontinued Medications Medication Sig Discontinue Reason Start Date End Da te aspirin 325 mg tabletIndications:Pain Take 325 mg by mouth every 6 (six) hours as needed for pain. Indications: pain 02/21/2021 documented as of this encounter Care Teams Geek Squad Manager Relationship Specialty Start Date End Date Cherelle Corcoran MD PCP - General Family Medicine 08/30/19 Mark Queen MD Consulting Physician Infectious Diseases 01/10/20 documented as of this encounter
--- OUTSIDE RECORDS SUMMARY | 2024-07-04 04:18 | XMS_ITS | Encounter Summary ---
Author Organization [facility] Address [address] [facility] [address] [place] [address] Care Team Providers Care Credit Adjuster Name Role Phone Cherelle Corcoran MD Primary Care Pro vider Mark Queen MD Unavailable [phone] Encounter Details Date Type Department Care Team (Late st Contact Info) Description 05/30/2021 Orders Only [facility] Primary Care [address] [facility] 230 [place] [address] Cherelle Corcoran MD [facility]4 [facility] [address] [place] [address] Midline low back pain with right-sided sciatica, unspecified chronicity (Primary Dx) Social History Tobacco [...] on file Legal Sex Female 9:03 AM LABORATORY IMMUNOLOGIST Gender Identity Female 02/08/2020 6:39 PM CDT Sexual Orientation Not on file documented as of this encounter Plan of Treatment Upcoming Encounters Date Type Department Care Team (Latest Contact Info) Description 07/13/2024 9:00 AM LABORATORY IMMUNOLOGIST Hospital Encounter [facility] GI Lab [address] [place] [address] Jaya Grier MD [address] [facility] [address] [place] [address] 07/13/2024 9:00 AM LABORATORY IMMUNOLOGIST - 07/13/2024 9:30 AM LABORATORY IMMUNOLOGIST Surgery [facility] GI Lab [address] [place] [address] Jaya Grier MD [facility]0 [facility] [address] [place] [address] ESOPHAGOGASTRODUODENOSCOPY Scheduled Procedures Name Priority Associated Diagnoses Date/Ti me ESOPHAGOGASTRODUODENOSCOPY Anemia, unspecified type Gastritis without bleeding, unspecified chronicity, unspecified gastritis type 07/13/2024 9:00 AM LABORATORY IMMUNOLOGIST COLONOSCOPY Iron deficiency anemia due to chronic blood loss documented as of this encounter Visit Diagnoses Diagnosis Midline low back pain with right-sided sciatica, unspecified chronicity- Primary Anemia, unspecified type Gastritis without bleeding, unspecified chronicity, unspecified gastritis type documented in this encounter Care Teams Credit Adjuster Relationship Specialty Start Date End Date Cherelle Corcoran MD PCP - General Family Medicine 08/30/19 Mark Queen MD Consulting Physician Infectious Diseases 01/10/20 documented as of this encounter
--- OUTSIDE RECORDS SUMMARY | 2024-07-04 04:18 | XMS_ITS | Encounter Summary ---
Author Organization [facility] Address [address] [place] [address] Care Team Providers Care Treasury Specialist Name Role Phone Cherelle Corcoran MD Primary Care Pro vider Mark Queen MD Unavailable [phone] Reason for Visit * Reason Comments Follow-up 4 wk; Encounter Details Date Type Department Care Team (Latest Contact Info) Description 01/08/2021 1:45 PM CDT Office Visit [facility] Primary Care [address] [facility] [address] [place] [address] Cherelle Corcoran MD [address] [place] [phone] Encounter for Medicare annual wellness exam (Primary Dx); Uncontrolled type 2 diabetes mellitus with hyperglycemia (CMS/HCC) (HCC); Hyperlipidemia associated with type 2 diabetes mellitus (HCC); Hypertension associated with diabetes (HCC); Stage 3b chronic kidney disease (HCC); History of anemia; Amputation of toe of right foot (CMS/HCC) (HCC) Social [...] file Legal Sex Female 9:03 AM GARBAGE COLLECTION SUPERVISOR Gender Identity Female 02/08/2020 6:39 PM CDT Sexual Orientation Not on file documented as of this encounter Last Filed Vital Signs Vital Sign Reading Time Taken Comments Blood Pressure 152/72 01/08/2021 2:16 PM CDT Pulse 88 01/08/2021 2:16 PM CDT Temperature 36.3 ??C (97.4 ??F) 01/08/2021 2:16 PM CD T Respiratory Rate 14 01/08/2021 2:16 PM CDT Oxygen Saturation 98% 01/08/2021 2:16 PM CDT Inhaled Oxygen Concentration - - Weight 63.2 kg (139 lb 6.4 oz) 01/08/2021 2:16 P M CDT Height 157.5 cm (5' 2.01 ) 01/08/2021 2:16 PM CD T Body Mass Index 25.49 01/08/2021 2:16 PM CDT documented in this encounter Ordered Prescriptions Prescription Sig Dispense Quantity Refills Last Filled Start Date End Date dulaglutide (TRULICITY) 4.5 mg/0.5 mL pen injectorIndications :Uncontrolled type 2 diabetes mellitus with hyperglycemia (HCC) Inject 0.5 mL (4.5 mg total) under the skin once a week 6 mL 1 01/08/2021 2 documented in this encounter Progress Notes * Cherelle Corcoran MD - 01/08/2021 1:45 PM CDT Images from the original note were not included. MEDICARE SUBSEQUENT ANNUAL WELLNESS VISIT Patient ID: Barbara Chakraborty is a 70 y.o. female. Visit date: 01/08/2021 Medicare Health Risk Assessment Basic Information In general, would you say your health is: Good Do you have an advance directive, such as a living will or durable power of bankruptcy attorney?: No Would you like information regarding Advanced Directiv (Living Will) and/or Durable Power of Telephone Information Clerk?: No Do you have trouble hearing the television or radio when other do not?: No Do you have to strain or struggle to hear/understand conversations?: No Have you experienced any of the following problems currently or recently? Eating: No Grooming: No Bathing: No Walking: No Using the toilet: No Memory problems: Yes Difficulty speaking: No Have you experienced any of the following problems currently or recently? Laundry and/or housekeeping: Yes Handling Money: No Shopping: No Food preparation: Yes Transportation: Yes Taking and/or getting your own medications: Yes - please explain Comments: (daughter helps) Depression Screen: PHQ Screening Over the last [...] time test was longer than 30 seconds? No Chief complaint: Follow-up (4 wk; ) HPI: AWV: has mammogram & dexa today Diabetes mellitus Medications:??3mg trulicity weekly, 47??units lantus daily, 10mg jardiance Fasting blood sugar: 130-150, up to 250 after meals no??hypoglycemia episodes ?? Neuropathy: taking 400mg gabapentin TID CKD: seeing nephro?? Hypertension: on 10mg lisinopril Hyperlipidemia: on??40mg atorvastatin GERD: stable on prilosec Problem List, Past Medical and Surgical History: Patient Active Problem List Diagnosis ??? Schizophrenia (CMS/HCC) ??? Diabetic neuropathy (CMS/HCC) ??? Uncontrolled type 2 diabetes mellitus with hyperglycemia (CMS/HCC) ??? Hypertension associated with diabetes (CMS/HCC) ??? Amputation of toe of right foot (CMS/HCC) ??? Iron deficiency anemia ??? GERD (gastroesophageal reflux disease) ??? Hyperlipidemia associated with type 2 diabetes mellitus (CMS/HCC) ??? Dementia (CMS/HCC) ??? Encounter for psychiatric assessment ??? Schizoaffective disorder, bipolar type (CMS/HCC) ??? Stage 3b chronic kidney disease ??? Encounter for Medicare annual wellness exam Past Medical History: Diagnosis Date ??? Arthritis ??? Depression ??? Diabetic neuropathy (CMS/HCC) ??? Hyperlipidemia ??? Hypertension ??? Schizophrenia (CMS/HCC) ??? Type 2 diabetes mellitus (CMS/HCC) Past Surgical History: Procedure Laterality Date ??? SECTION Right right foot ??? TOE AMPUTATION Right 01/06/2020 4th toe amp/ foot debridement/ Dr. Anat Pelayo Family History: Family History Problem Relation Age of Onset ??? Stomach cancer Father Social History: Social History Socioeconomic History ??? Marital status: [...] on file Social History Narrative Originally From [place] Grew up with her mom and dad. 12th grade - graduated. [employer]. [employer] - none. Yazidi. I never worked. Single. Social Determinants of Health Financial Resource Strain: ??? Difficulty of Paying Living Expenses: Food Insecurity: ??? Worried About Running Out of Food in the Last Year: ??? Ran Out of Food in the Last Year: Transportation Needs: ??? Lack of Transportation (Medical): ??? Lack of Transportation (Non-Medical): Physical Activity: ??? Days of Exercise per Week: ??? Minutes of Exercise per Session: Stress: ??? Feeling of Stress : Social Connections: ??? Frequency of Communication with Friends and Family: ??? Frequency of Social Gatherings with Friends and Family: ??? Attends Yazdanism Services: ??? Active Member of Clubs or Organizations: ??? Attends Club or Organization Meetings: ??? Marital Status: Intimate Partner Violence: ??? Fear of Current or Ex-Partner: ??? Emotionally Abused: ??? Physically Abused: ??? Sexually Abused: Allergies: No Known Allergies Medications: Current Outpatient Medications: ??? aspirin 325 mg tablet, Take 325 mg by mouth every 6 (six) hours as needed for pain. Indications: pain, Disp: , Rfl: ??? atorvastatin (LIPITOR) 40 mg tablet, TAKE 1 TABLET(40 MG) BY MOUTH DAILY, Disp: 90 tablet, Rfl:0 ??? empagliflozin (JARDIANCE) 10 mg tablet, Take 1 tablet (10 mg total) by mouth daily before breakfast, Disp: 30 tablet, Rfl: 1 ??? ferrous sulfate 325 mg (65 mg of elemental iron) tablet, Take 1 tablet (325 mg total) by mouth daily with breakfast, Disp: 30 tablet, Rfl: 11 ??? glucose 4 gram chewable tablet, Take 4 tablets (16 g total) by mouth as needed for low blood sugar (less than 70) and let Dr. Corcoran know!, Disp: 50 tablet, Rfl: 0 ??? lancets misc, Check blood sugar up to 3 times a day, Disp: 100 each, Rfl: 3 ??? LANTUS 100 unit/mL (3 mL) pen for injection, ADMINISTER 42 UNITS UNDER THE SKIN DAILY (Patient taking differently: 47 Units ), Disp: 15 mL, Rfl: 1 ??? lidocaine (LIDODERM) 5 %, Place 1 patch on the skin daily Apply to painful area 12 hours per day, remove for 12 hours., Disp: 30 patch, Rfl: 1 ??? lisinopriL (PRINIVIL,ZESTRIL) 10 mg tablet, Take 1 tablet (10 mg total) by mouth daily, Disp: 90 tablet, Rfl: 0 ??? multivitamin with minerals tablet, Take 1 tablet by mouth daily, Disp: , Rfl: ??? omeprazole (PriLOSEC) 20 mg capsule, Take 1 capsule (20 mg total) by mouth daily, Disp: 90 capsule, Rfl: 0 ??? OneTouch Verio test strips strip, TEST 3 TO 4 TIMES DAILY, Disp: 400 each, Rfl: 1 ??? pen needle, diabetic 32 gauge x 3/16 needle, Use to inject basaglar nightly, Disp: 100 each, Rfl: 1 ??? risperiDONE (RisperDAL) 2 mg tablet, Take 1 tablet (2 mg total) by mouth nightly, Disp: 30 tablet, Rfl: 3 ??? syringe with needle, insulin (INSULIN SYRINGE-NEEDLE U-100 MISC), 3 times a day, Disp: , Rfl: ??? dulaglutide (TRULICITY) 4.5 mg/0.5 mL pen injector, Inject 0.5 mL (4.5 mg total) under the skinonce a week, Disp: 6 mL, Rfl: 1 Review of Systems: Review of Systems Constitutional: Negative for fever. HENT: Negative for sore throat. Respiratory: Negative for cough and shortness of breath. Gastrointestinal: Positive for abdominal pain and constipation. Negative for diarrhea and vomiting. Musculoskeletal: Negative for myalgias. Psychiatric/Behavioral: Positive for confusion (chronic, stable). Negative for dysphoric mood. Recent Results (from the past 1008 hour(s)) POCT hemoglobin A1c Collection Time: 12/10/20 4:02 PM Result Value Ref Range Hemoglobin A1C, POC 7.5 POCT hemoglobin A1c Collection Time: 01/08/21 2:43 PM Result Value Ref Range Hemoglobin A1C, POC 8.2 Vitals: Vitals BP 152/72 (BP Location: Left arm, Patient Position: Sitting) Pulse 88 Temp 36.3 ??C (97.4 ??F) (Tympanic) Resp 14 Ht 157.5 cm (5' 2.01 ) Wt 63.2 kg (139 lb 6.4 oz) SpO2 98% BMI 25.49 kg/m?? Body mass index is 25.49 kg/m??. Exam: Physical Exam Gen: NAD, comfortable, appears as stated age Eyes: no conjunctival injection, EOMI ENMT: external ears symmetric, nares patent CV: RRR without murmur, rub, gallop. Pulm: good respiratory effort, CTAB no rhonchi, rales, or wheezes Abd: soft, mild LLQ TTP without guarding or rebound, non-distended, bowel sounds present Skin: no rashes or nodules, warm and dry Ext: No lower extremity edema, s/p toe amputation MSK/Neuro: symmetric limb movement, normal gait Psych: alert and oriented to person/place/time, appropriate judgment and insight Care Team Providers: Patient Care Team: Cherelle Corcoran MD as PCP - General (Family Medicine) Mark Queen MD as Consulting Physician (Infectious Diseases) Primary Pharmacy/DME suppliers: [id number] - [place], [place] - [address] [place] [address] [facility] - [place], [place] - [address] [facility] [address] Detection of Cognitive Impairment: The patient does have cognitive impairment based on direct observation, discussion with patient or family, or review of medical records. Health Maintenance: Health Maintenance Topics with due status: Overdue Topic Date Due Regular Well Visit/Exam Never done Osteoporosis Screening-Bone Density Scan Never done Urine Microalbumin Never done DTaP/Tdap/Td Vaccine Never done Zoster Vaccines Never done Breast Cancer Screening-Mammogram 11/07/2016 Health Maintenance Topics with due status: Not Due Topic Last Completion Date Colon Cancer Screening-Colonoscopy 04/01/2017 Foot Exam 04/02/2020 Lipid Panel 04/02/2020 Influenza Vaccine 04/02/2020 Dilated Eye Exam 06/11/2020 Fall Risk Assessment 01/08/2021 Depression Screening-PHQ 01/08/2021 Hemoglobin A1C 01/08/2021 Health Maintenance Topics with due status: Completed Topic Last Completion Date Pneumococcal (PCV13 & PPSV23) 65+ yrs 01/20/2019 Hepatitis C Screening 05/28/2020 Covid-19 Vaccine 10/13/2020 Counseling and Referral of Preventative Services: Lifestyle [...] eye exam UTD, labs UTD, colonoscopy UTD Uncontrolled type 2 diabetes mellitus with hyperglycemia (CMS/HCC) Assessment & Plan: Uncontrolled Continue jardiance 10mg Continue lantus to 47 units Increase trulicity to 4.5mg weekly Discussed hypoglycemia precautions Orders: - POCT hemoglobin A1c - dulaglutide (TRULICITY) 4.5 mg/0.5 mL pen injector; Inject 0.5 mL (4.5 mg total) under the skin once a week - Hemoglobin A1c; Future Hyperlipidemia associated with type 2 diabetes mellitus (CMS/HCC) Comments: Continue statin Orders: - Lipid panel; Future Hypertension associated with diabetes (CMS/HCC) Comments: BP mildly elevated today, previously at goal Continue meds Orders: - Comprehensive metabolic panel; Future Stage 3b chronic kidney disease Comments: Check CMP Following with nephro History of anemia - CBC with auto differential; Future Amputation of toe of right foot (CMS/[facility]) Assessment & Plan: Stable Patient here for annual Medicare wellness visit and for review of complete medical problem list. All the elements of the plan were completed as outlined by CMS. A copy of the prevention plan was [...] update and summary of today's office visit. AWV with separate distinct encounter to discuss uncontrolled diabetes mellitus Cherelle Corcoran MD documented in this encounter Miscellaneous Notes * Assessment & Plan Note - Cherelle Corcoran MD - 01/08/2021 3:50 PM CDTAssociated Problem(s): History of amputation of toe (CMS/HCC) ([facility]) Stable * Assessment & Plan Note - Cherelle Corcoran MD - 01/08/2021 3:48 PM CDTAssociated Problem(s): Schizoaffective disorder, bipolar type (CMS/HCC) (HCC) Follow up with psychiatry, continue risperidone per their recs * Assessment & Plan Note - Cherelle Corcoran MD - 01/08/2021 3:44 PM CDTAssociated Problem(s): Type 2 diabetes mellitus with diabetic neuropathy, with long-term current use of insulin (HCC) Uncontrolled Continue jardiance 10mg Continue lantus to 47 units Increase trulicity to 4.5mg weekly Discussed hypoglycemia precautions * Assessment & Plan Note - Cherelle Corcoran MD - 01/08/2021 3:42 PM CDTAssociated Problem(s): Encounter for Medicare annual wellness exam Reviewed PM & PHQ Screening PHQ-2 Total Score (If [...] eye exam UTD, labs UTD, colonoscopy UTD documented in this encounter Plan of Treatment Upcoming Encounters Date Type Department Care Team (Latest Contact Info) Description 07/13/2024 9:00 AM GARBAGE COLLECTION SUPERVISOR Hospital Encounter [facility] [address] [place] [address] Jaya Grier MD [address] [place] [address] 07/13/2024 9:00 AM GARBAGE COLLECTION SUPERVISOR - 07/13/2024 9:30 AM GARBAGE COLLECTION SUPERVISOR Surgery [facility] [address] [place] [address] Jaya Grier MD [address] [place] [address] ESOPHAGOGASTRODUODENOSCOPY Scheduled Procedures Name Priority Associated Diagnoses Date/Ti me ESOPHAGOGASTRODUODENOSCOPY Anemia, unspecified type Gastritis without bleeding, unspecified chronicity, unspecified gastritis type 07/13/2024 9:00 AM GARBAGE COLLECTION SUPERVISOR COLONOSCOPY Iron deficiency anemia due to chronic blood loss documented as of this encounter Procedures Procedure Name Priority Date/Time Associated Diagnosis Comments POCT HEMOGLOBIN A1C Routine 01/08/2021 2 :43 PM CDT Uncontrolled type 2 diabetes mellitus with hyperglycemia (CMS/HCC) (HCC) documented in this encounter Results * (ABNORMAL) POCT hemoglobin A1c (01/08/2021 2:43 PM CDT) Hemoglobin A1C, POC 8.2 Comment:Lot [id number] Exp [id number] Blood specimen (specimen) 01/08/2021 2:43 PM CDT Cherelle Corcoran MD POINT OF CARE GOMEZ T ORDERABLES Final Result documented in this encounter Visit Diagnoses Diagnosis Encounter for Medicare annual wellness exam- Primary Uncontrolled type 2 diabetes mellitus with hyperglycemia (HCC) Hyperlipidemia associated with type 2 diabetes mellitus (HCC) Hypertension associated with diabetes (HCC) Unspecified essential hypertension Stage 3b chronic kidney disease (HCC) History of anemia Personal history of diseases of blood and blood-forming organs Amputation of toe of right foot (CMS/HCC) (HCC) Anemia, unspecified type Gastritis without bleeding, unspecified chronicity, unspecified gastritis type documented in this encounter Discontinued Medications Medication Sig Discontinue Reason Start Date End Da te Trulicity 3 mg/0.5 mL pen injectorIndications:Uncont rolled type 2 diabetes mellitus with hyperglycemia (HCC) INJECT 0.5 ML(3MG) UNDER SKIN EVERY WEEK Alternate therapy 12/25/2020 01/08/2021 documented as of this encounter Additional Health Concerns Infection Onset Date Last Indicated Resolved Time MRSA 01/06/2020 01/06/2020 02/06/2021 5:00 AM CDT documented as of this encounter Care Teams Treasury Specialist Relationship Specialty Start Date End Date Cherelle Corcoran MD PCP - General Family Medicine 08/30/19 Mark Queen MD Consulting Physician Infectious Diseases 01/10/20 documented as of this encounter
--- OUTSIDE RECORDS SUMMARY | 2024-07-04 04:18 | XMS_ITS | Encounter Summary ---
Author Organization [facility] Healthcare Address [address] [place] [address] Care Team Providers Care Locomotive Firer Name Role Phone Cherelle Corcoran MD Primary Care Pro vider Mark Queen MD Unavailable [phone] Reason for Visit * Reason Onset Date Comments No Show 01/17/2021 Encounter Details Date Type Department Care Team (Late st Contact Info) Description 01/17/2021 Documentation [facility] Medical Office Bldg 1 OP Physical Therapy [address] [place] [address] Mauricio Ng, PT No Show Social History Tobacco Use [...] file Legal Sex Female 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 GI Lab [address] [place] [address] Jaya Grier MD [address] [place] [address] [address] [place] [address] 07/13/2024 9:00 AM CUSTOM MILLER - 07/13/2024 9:30 AM CUSTOM MILLER Surgery [facility] [address] [place] [address] Jaya Grier MD [facility] [facility] [address] [place] [address] ESOPHAGOGASTRODUODENOSCOPY Scheduled Procedures Name Priority Associated Diagnoses Date/Ti oh ESOPHAGOGASTRODUODENOSCOPY Anemia, unspecified type Gastritis without bleeding, unspecified chronicity, unspecified gastritis type 07/13/2024 9:00 AM CUSTOM MILLER COLONOSCOPY Iron deficiency anemia due to chronic [...] documented as of this encounter Care Teams Locomotive Firer Relationship Specialty Start Date End Date Cherelle Corcoran MD PCP - General Family Medicine 08/30/19 Mark Queen MD Consulting Physician Infectious Diseases 01/10/20 documented as of this encounter
--- OUTSIDE RECORDS SUMMARY | 2024-07-04 04:18 | XMS_ITS | Encounter Summary ---
Author Organization [facility] Address [address] [place] [address] Care Team Providers Care Eye Physician Name Role Phone Cherelle Corcoran MD Primary Care Pro vider Mark Queen MD Unavailable [phone] Encounter Details Date Type Department Care Team (Late st Contact Info) Description 08/07/2021 Telephone [facility] Nephrology [address] [facility] [address] [place] [address] Markie Ryan MD [address] [address] Social History Tobacco Use Types Packs/Day [...] on file Legal Sex Female 9:03 AM SAFETY PERSON Gender Identity Female 02/08/2020 6:39 PM CDT Sexual Orientation Not on file documented as of this encounter Miscellaneous Notes * Telephone Encounter - Mihaela Mejia MA - 08/07/2021 9:19 AM SAFETY PERSON I spoke with pt's daughter and pt had been having episodes of light-headedness, where her legs would give out and she would sink to the floor. She would seem out of it at the time. So [place] [facility] [place], where she was admitted. Daughter said her psych doctor switched her from Risperidone to Haldol about a month ago, which is when her symptoms started. She has an appointment with psych this week and they are going to try to get her switched back to Risperidone. [facility] for BMP sent to [facility], and daughter asked if she could bring her mom in sooner, so she iscoming in next week. TY PERSON * Telephone Encounter - Mihaela Mejia MA - 08/07/2021 9:19 AM SAFETY PERSON ----- Message from Markie Ryan MD sent at 08/06/2021 4:41 PM SAFETY PERSON ----- Creatinine up to 2.2, please make sure no acute issues and would repeat a BMP next week TY PERSON documented in this encounter Plan of Treatment Upcoming Encounters Date Type Department Care Team (Latest Contact Info) Description 07/13/2024 9:00 AM SAFETY PERSON Hospital Encounter [facility] GI [facility] [address] [place] [address] Jaya Grier MD [address] [place] [address] 07/13/2024 9:00 AM SAFETY PERSON - 07/13/2024 9:30 AM SAFETY PERSON Surgery [facility] [address] [place] [address] Jaya Grier MD [address] [address] ESOPHAGOGASTRODUODENOSCOPY Scheduled Procedures Name Priority Associated Diagnoses Date/Ti me ESOPHAGOGASTRODUODENOSCOPY Anemia, unspecified type Gastritis without bleeding, unspecified chronicity, unspecified gastritis type 07/13/2024 9:00 AM SAFETY PERSON COLONOSCOPY Iron deficiency anemia due to chronic blood loss documented as of this encounter Visit Diagnoses Diagnosis Stage 3a chronic kidney disease (HCC)- Primary Anemia, unspecified type Gastritis without bleeding, unspecified chronicity, unspecified gastritis type documented in this encounter Care Teams Eye Physician Relationship Specialty Start Date End Date Cherelle Corcoran MD PCP - General Family Medicine 08/30/19 Mark Queen MD Consulting Physician Infectious Diseases 01/10/20 documented as of this encounter
--- OUTSIDE RECORDS SUMMARY | 2024-07-04 04:18 | XMS_ITS | Encounter Summary ---
Author Organization [facility] Address [address] [place] [address] Care Team Providers Care Manager Produce Name Role Phone Cherelle Corcoran MD Primary Care Pro vider Mark Queen MD Unavailable [phone] Encounter Details Date Type Department Care Team (Late st Contact Info) Description 07/31/2021 Telephone [facility] Primary Care [address] [facility] [address] [place] [address] Cherelle Corcoran MD [facility] [facility] [address] [place] [address] Social History Tobacco Use Types [...] file Legal Sex Female 9:03 AM SENIOR JAVA DATA ARCHITECT Gender Identity Female 02/08/2020 6:39 PM CDT Sexual Orientation Not on file documented as of this encounter Miscellaneous Notes * Telephone Encounter - Tena Roman - 07/31/2021 2:25 PM CST Patient daughter called stating that her mom has been admitted to [facility] FYI OR JAVA DATA ARCHITECT documented in this encounter Plan of Treatment Upcoming Encounters Date Type Department Care Team (Latest Contact Info) Description 07/13/2024 9:00 AM SENIOR JAVA DATA ARCHITECT Hospital Encounter [facility] [address] [place] [address] Jaya Grier MD [address] [place] [address] [address] [place] [address] 07/13/2024 9:00 AM SENIOR JAVA DATA ARCHITECT - 07/13/2024 9:30 AM SENIOR JAVA DATA ARCHITECT Surgery [facility] [address] [place] [address] Jaya Grier MD [address] [place] [address] [address] [place] [address] ESOPHAGOGASTRODUODENOSCOPY Scheduled Procedures Name Priority Associated Diagnoses Date/Ti me ESOPHAGOGASTRODUODENOSCOPY Anemia, unspecified type Gastritis without bleeding, unspecified chronicity, unspecified gastritis type 07/13/2024 9:00 AM SENIOR JAVA DATA ARCHITECT COLONOSCOPY Iron deficiency anemia due to chronic blood loss documented as of this encounter Visit Diagnoses Not on filedocumented in this encounter Care Teams Manager Produce Relationship Specialty Start Date End Date Cherelle Corcoran MD PCP - General Family Medicine 08/30/19 Mark Queen MD Consulting Physician Infectious Diseases 01/10/20 documented as of this encounter
--- OUTSIDE RECORDS SUMMARY | 2024-07-04 04:18 | XMS_ITS | Encounter Summary ---
Author Organization [facility] Address [address] [place] [address] Care Team Providers Care Clinical Director Name Role Phone Cherelle Corcoran MD Primary Care Pro vider Mark Queen MD Unavailable [phone] Reason for Visit * Reason Comments Wound Check right leg open sore Encounter Details Date Type Department Care Team (Late st Contact Info) Description 07/02/2021 3:30 PM EXECUTIVE WELLNESS PROGRAMS DIRECTOR Telemedicine [facility] Primary Care [facility] [address] [place] [address] Cherelle Corcoran MD [address] [place] [address] [address] [place] [address] Cellulitis of right lower extremity (Primary Dx); Type 2 diabetes mellitus with diabetic neuropathy, with long-term current use of insulin ([facility]) ([facility]); Right thigh pain; Lumbar radiculopathy; Dizziness; Gastroesophageal reflux disease, unspecified whether esophagitis present; Schizoaffective disorder, bipolar type (CMS/HCC) ([facility]) Social History Tobacco Use Types Packs/Day Years [...] on file Legal Sex Female 9:03 AM EXECUTIVE WELLNESS PROGRAMS DIRECTOR Gender Identity Female 02/08/2020 6:39 PM CDT Sexual Orientation Not on file documented as of this encounter Last Filed Vital Signs Vital Sign Reading Time Taken Comments Blood Pressure - - Pulse - - Temperature - - Respiratory Rate - - Oxygen Saturation - - Inhaled Oxygen Concentration - - Weight 70.8 kg (156 lb) 07/02/2021 3:40 PM EXECUTIVE WELLNESS PROGRAMS DIRECTOR Height 157.5 cm (5' 2 ) 07/02/2021 3:40 PM EXECUTIVE WELLNESS PROGRAMS DIRECTOR Body Mass Index 28.53 07/02/2021 3:40 PM EXECUTIVE WELLNESS PROGRAMS DIRECTOR documented in this encounter Patient Instructions * Patient Instructions* Cherelle Corcoran MD - 07/02/2021 3:30 PM EXECUTIVE WELLNESS PROGRAMS DIRECTOR Images from the original note were not included. Patient Education Hypoglycemia in a Person with Diabetes PEACH GROWER: Hypoglycemia is a serious condition that happens when your blood glucose (sugar) level drops too low. The blood sugar level is usually too high in a person with diabetes, but the level can also drop too low. It is important to follow your diabetes management plan to keep your blood sugar level steady. Common signs and symptoms include the following: ?? Headache, hunger, or nervousness ?? Trouble thinking or moodiness ?? Sweating, or a pounding heartbeat ?? Forgetfulness, confusion, or double vision ?? Weakness or trouble walking ?? Numbness and tingling in your fingers or around your mouth ?? Seizures or loss of consciousness Call 911 for any of the following: ?? You have a seizure or pass out. ?? You feel you are going to pass out. ?? You have trouble thinking clearly. Seek care immediately if: ?? Your blood sugar is less than 50 mg/dL and does not respond to treatment. Contact your healthcare provider if: ?? You have had symptoms of low blood sugar several times. ?? You have questions about the amount of insulin or diabetes medicine you are taking. ?? You have questions or concerns about your condition or care. Manage hypoglycemia: ?? Check your blood sugar level right away if you have symptoms of hypoglycemia. Hypoglycemia is usually 70 mg/dL or below. Ask your healthcare provider what blood sugar level is too low for you. ?? If your blood sugar level is too low, eat or drink 15 grams of fast-acting carbohydrate. Examples of this amount of fast-acting carbohydrate are 4 ounces (?? cup) of fruit juice or 4 ounces of regular soda. Other examples are 2 tablespoons of raisins or 3 to 4 glucose tablets. Check your blood sugar level 15 minutes later. If the level is still low (less than 100 mg/dL), have another 15 grams of carbohydrate. When the level returns to 100 mg/dL, eat a snack or meal that contains carbohydrates. This will help prevent another drop in blood sugar. Always carefully follow your healthcare provider's instructions on how to treat low blood sugar levels. ?? Always carry a source of fast-acting carbohydrate. If you have symptoms of hypoglycemia and you do not have a blood glucose meter, have a source of fast- acting carbohydrate anyway. Avoid carbohydrate foods that are high in fat. The fat content may make it take longer to increase your blood sugarlevel. Ask your healthcare provider if you should carry a glucagon kit. Glucagon is a medicine thatis injected when you develop severe hypoglycemia and become unconscious. Check the expiration date every month and replace it before it expires. ?? Teach others how to help you if you have symptoms of hypoglycemia. Tell them about the symptoms of hypoglycemia. Ask them to give you a source of fast-acting carbohydrate if you cannot get it yourself. Ask them to give you a glucagon injection if you have symptoms of hypoglycemia and you become unconscious or have a seizure. Ask them to call 911 . This is an emergency. Tell them never to try to make you swallow anything if you faint or have a seizure. ?? Wear medical alert jewelry or carry a card that says you have diabetes. Ask where to get these items. Prevent hypoglycemia: ?? Take diabetes medicine as directed. Take your medicine at the right time and in the right amount. Your healthcare provider may change your blood sugar goals if you get hypoglycemia often. ?? Eat regular meals and snacks. Talk to your dietitian or healthcare provider about a meal plan that is right for you. Do not skip meals. ?? Check your blood sugar level as directed. Ask your healthcare provider what your blood sugar levels should be before and after you eat. Ask when and how often to check your blood sugar level. You may need to check at least 3 times each day. Record your blood sugar level results and take the record with you when you see your healthcare provider. Your provider may use the record to make changes to your medicine, food, or exercise schedules. ?? Check your blood sugar level before you exercise. Exercise can decrease your blood sugar level. If your blood sugar level is less than 100 mg/dL, have a carbohydrate snack. Examples are 4 to 6 crackers, ?? banana, 8 ounces (1 cup) of nonfat or 1% milk, or 4 ounces (?? cup) of juice. If you will exercise for more than 1 hour, you may need to check your blood sugar level every 30 minutes. Your healthcare provider may also recommend that you check your blood sugar level after exercise. ?? Be aware of how alcohol affects your blood sugar level. Alcohol can cause your blood sugar levelto drop for up to 12 hours after drinking. Ask your healthcare provider if alcohol is safe for you.If you drink alcohol, always have a snack or meal at the same time. Women should limit alcohol to 1drink a day. Men should limit alcohol to 2 drinks a day. A drink of alcohol is 12 ounces of beer, 5ounces of wine, or 1?? ounces of liquor. Follow up with your healthcare provider as directed: You may need dose changes to your insulin or oral diabetes medicine if you have hypoglycemia. Write down your questions so you remember to ask them during your visits. ?? 2017 [employer] Information is for End User's use only and may not be sold, redistributed or otherwise used for commercial purposes. All illustrations and images included in CareNotes?? are the copyrighted property of [employer], [employer]. or [employer]. The above information is an public health aides teacher only. It is not intended as medical advice for individual conditions or treatments. Talk to your doctor, nurse or pharmacist before following any medical regimen to see if it is safe and effective for you. UTIVE WELLNESS PROGRAMS DIRECTOR documented in this encounter Ordered Prescriptions Prescription Sig Dispense Quantity Refills Last Filled Start Date End Date famotidine (PEPCID) 40 mg tabletIndications: Gastroesophageal reflux disease, unspecified whether esophagitis present Take 1 tablet (40 mg total) by mouth daily 90 tablet 3 07/02/2021 09/18/2021 dulaglutide (TRULICITY) 4.5 mg/0.5 mL pen injectorIndication s:Type 2 diabetes mellitus with diabetic neuropathy, with long-term current use of insulin ([facility]) Inject 0.5 mL (4.5 mg total) under the skin once a week 6 mL 1 07/02/2021 07/19/2021 doxycycline (VIBRAMYCIN) 100 mg capsuleIndications :Cellulitis of right lower extremity Take 1 tablet/capsu le (100 mg total) by mouth 2 (two) times a day for 10 days 20 tablet/capsule 07/02/2021 07/12/2021 documented in this encounter Progress Notes * Cherelle Corcoran MD - 07/02/2021 3:30 PM CST Images from the original note were not included. Assessment/Plan: Assessment/Plan Diagnoses and all orders for this visit: Cellulitis of right lower extremity (Primary) Comments: Worsening Will start oral abx Orders: - doxycycline (VIBRAMYCIN) 100 mg capsule; Take 1 tablet/capsule (100 mg total) by mouth 2 (two) times a day for 10 days Type 2 diabetes mellitus with diabetic neuropathy, with long-term current use of insulin ([facility]) ([facility]) Assessment & Plan: Fasting blood sugar significantly improved Risperidone changed Continue current meds Continue to monitor Orders: - dulaglutide (TRULICITY) 4.5 mg/0.5 mL pen injector; Inject 0.5 mL (4.5 mg total) under the skin once a week Right thigh pain Comments: Likely 2/2 radiculopathy, but will get XR to r/o fracture Orders: - Ambulatory referral order to Physical Therapy -; Future - XR Femur Right 2 or More Views; Future Lumbar radiculopathy - Ambulatory referral order to Physical Therapy -; Future Dizziness Comments: With position change Referral to PT Orders: - Ambulatory referral order to Physical Therapy -; Future Gastroesophageal reflux disease, unspecified whether esophagitis present Comments: Uncontrolled Continue prilosec Add pepcid Orders: - famotidine (PEPCID) 40 mg tablet; Take 1 tablet (40 mg total) by mouth daily Schizoaffective disorder, bipolar type (CMS/HCC) (HCC) Assessment & Plan: Following with psychiatry D/c risperidone, started on haldol F/u if symptoms not improving or worsen. Strict return/ED precautions discussed. Subjective: This was a telemedicine visit with Barbara Chakraborty and daughter which took place via real-time video connection with [employer]. During the visit, I was located in the office and the patient was located [facility] the [facility]. The patient visit started at 3:42pm and ended at 3:58pm. The total [id number] encounter time with the patient was 16 minutes. Greater than 50% of the visit was spent on counseling and coordinating care. Patient was counseled on plan of care. The patient has been informed that the visit may not be secure and acknowledged the information. I have explained the option of participating in a telephone or video visit during the [facility] emergency to the patient. After being given an opportunity to ask questions about and discuss this type of visit, the patient verbally consented to proceeding with the telephone/video visit.The patient understands that this service replaces an office visit and they may be billed and/or responsible for any applicable copayments. Wound Check neurologic complaint The patient's primary symptoms include a loss of balance and memory loss. The patient's pertinent negatives include no altered mental status, clumsiness, focal sensory loss or focal weakness. This asif new problem. The current episode started 1 to 4 weeks ago. The neurological problem developed suddenly. The problem has been gradually worsening since onset. There was lower extremity focality noted. Associated symptoms include abdominal pain, back pain, bowel incontinence, diaphoresis, dizziness(chronic, not worsening), fatigue and vertigo. Pertinent negatives include no auditory change, aura, bladder incontinence, chest pain, confusion, fever, headaches, light-headedness, nausea, neck pain, palpitations, shortness of breath or vomiting. Past treatments include nothing. Chief Complaint Patient presents with ??? Wound Check right leg open sore Diabetes mellitus: 4.5mg trulicity,??60??units lantus, &??25mg jardiance??(daughter is giving to her). No hypoglycemia. States blood sugar in??80-180's in AM + for covid last week, symptoms improved Epigastric pain: on prilosec Back pain after fall, negative XR. Also having hip pain, concerned as XR only done of back. hasnt been doing physical therapy exercises Schizophrenia: psychiatry changed risperidone to haldol Review of Systems Constitutional: Positive for diaphoresis and fatigue. Negative for fever. Respiratory: Negative for shortness of breath. Cardiovascular: Negative for chest pain and palpitations. Gastrointestinal: Positive for abdominal pain and bowel incontinence. Negative for nausea and vomiting. Genitourinary: Negative for bladder incontinence. Musculoskeletal: Positive for back pain and myalgias. Negative for neck pain. Skin: Positive for wound. Neurological: Positive for dizziness (chronic, not worsening), vertigo and loss of balance. Negative for focal weakness, light-headedness and headaches. Psychiatric/Behavioral: Positive for memory loss. Negative for confusion. Objective: Vital signs were reviewed. Vitals: 07/02/21 1540 Weight: 70.8 kg (156 lb) Height: 157.5 cm (5' 2 ) Physical Exam Gen: NAD, comfortable, appears as stated age Eyes: no conjunctival injection, EOMI ENMT: external ears symmetric Pulm: no increased work of breathing Skin: erythema of anterior RLE, warm and dry MSK/Neuro: symmetric limb movement Psych: alert and oriented to person/place Cherelle Corcoran MD UTIVE WELLNESS PROGRAMS DIRECTOR documented in this encounter Miscellaneous Notes * Assessment & Plan Note - Cherelle Corcoran MD - 07/03/2021 7:24 AM CSTAssociated Problem(s): Schizoaffective disorder, bipolar type (CMS/HCC) (HCC) Following with psychiatry D/c risperidone, started on haldol UTIVE WELLNESS PROGRAMS DIRECTOR * Assessment & Plan Note - Cherelle Corcoran MD - 07/03/2021 7:23 AM CSTAssociated Problem(s): Type 2 diabetes mellitus with diabetic neuropathy, with long-term current use of insulin ([facility]) Fasting blood sugar significantly improved Risperidone changed Continue current meds Continue to monitor UTIVE WELLNESS PROGRAMS DIRECTOR documented in this encounter Plan of Treatment Upcoming Encounters Date Type Department Care Team (Latest Contact Info) Description 07/13/2024 9:00 AM EXECUTIVE WELLNESS PROGRAMS DIRECTOR Hospital Encounter [facility] [address] [place] [address] Jaya Grier MD [address] [place] [address] DR GAINES [address] [place] [phone] 07/13/2024 9:00 AM EXECUTIVE WELLNESS PROGRAMS DIRECTOR - 07/13/2024 9:30 AM EXECUTIVE WELLNESS PROGRAMS DIRECTOR Surgery [facility] [address] [place] [address] Jaya Grier MD [address] [place] [address] DR GAINES [address] [place] [address] ESOPHAGOGASTRODUODENOSCOPY Scheduled Procedures Name Priority Associated Diagnoses Date/Ti mi ESOPHAGOGASTRODUODENOSCOPY Anemia, unspecified type Gastritis without bleeding, unspecified chronicity, unspecified gastritis type 07/13/2024 9:00 AM EXECUTIVE WELLNESS PROGRAMS DIRECTOR COLONOSCOPY Iron deficiency anemia due to chronic blood loss documented as of this encounter Visit Diagnoses Diagnosis Cellulitis of right lower extremity- Primary Type 2 diabetes mellitus with diabetic neuropathy, with long-term current use of insulin (HCC) Right thigh pain Pain in soft tissues of limb Lumbar radiculopathy Thoracic or lumbosacral neuritis or radiculitis, unspecified Dizziness Dizziness and giddiness Gastroesophageal reflux disease, unspecified whether esophagitis present Schizoaffective disorder, bipolar type ([facility]/HCC) (HCC) Schizoaffective disorder, unspecified condition Anemia, unspecified type Gastritis without bleeding, unspecified chronicity, unspecified gastritis type documented in this encounter Discontinued Medications Medication Sig Discontinue Reason Start Date End Da te pen needle, diabetic 32 gauge x 3/16 needleIndications:Uncontr olled type 2 diabetes mellitus with hyperglycemia (HCC) Use to inject basaglar nightly 06/25/2021 07/01/2021 dulaglutide (TRULICITY) 4.5 mg/0.5 mL pen injectorIndications:Uncon trolled type 2 diabetes mellitus with hyperglycemia (HCC) Inject 0.5 mL (4.5 mg total) under the skin once a week Reorder 01/08/2021 07/02/2021 documented as of this encounter Historical Medications * This list may reflect changes made after this encounter. BD Arlyn 2nd Gen Pen Needle 32 gauge x 5/32 needleIndication s:Type 2 diabetes mellitus with diabetic neuropathy, with long-term current use of insulin (HCC) USE TO INJECT BASAGLAR EVERY NIGHT AT BEDTIME 06/25/2021 11/30/2022 added in this encounter Care Teams Clinical Director Relationship Specialty Start Date End Date Cherelle Corcoran MD PCP - General Family Medicine 08/30/19 Mark Queen MD Consulting Physician Infectious Diseases 01/10/20 documented as of this encounter
--- OUTSIDE RECORDS SUMMARY | 2024-07-04 04:18 | XMS_ITS | Encounter Summary ---
Author Organization [facility] Address [address] [place] [address] Care Team Providers Care Ice Plant Operator Name Role Phone Cherelle Corcoran MD Primary Care Pro vider Mark Queen MD Unavailable [phone] Reason for Visit * Reason Onset Date Comments DC Note 03/01/2021 Encounter Details Date Type Department Care Team (Late st Contact Info) Description 03/01/2021 Documentation [facility] Medical Office Bldg 1 OP Physical Therapy [address] [place] [address] Nona Cameron, PT DC Note Social History Tobacco Use Types Packs/Day Years [...] on file Legal Sex Female 9:03 AM CUSTOMER SUPPLY CHAIN ANALYST Gender Identity Female 02/08/2020 6:39 PM CDT Sexual Orientation Not on file documented as of this encounter Progress Notes * Nona Cameron PT - 03/01/2021 1:42 PM CDT Images from the original note were not included. OUTPATIENT DISCHARGE NOTE FOR PHYSICAL THERAPY Dates of Service: 12/18/20 to 12/25/20 Number of Treatments: 3 Number of Missed Visits: 3 STATUS AT DISCHARGE/ REASON FOR DISCHARGE: Patient did not return for continued therapy services. No further contact made by patient or physician., Physician orders have . and See note from last encounter. GOALS: Partially Achieved COMMENTS/ RECOMMENDATIONS: Patient will continue to address symptoms/ deficits with HEP., Patient may call clinic with any questions regarding HEP or previous care. and Patient will follow up with physician as needed. Thank you very much for your referral, Nona Cameron PT, DPT documented in this encounter Plan of Treatment Upcoming Encounters Date Type Department Care Team (Latest Contact Info) Description 07/13/2024 9:00 AM CUSTOMER SUPPLY CHAIN ANALYST Hospital Encounter [facility] GI Lab [address] [place] [address] Jaya Grier MD [address] [place] [address] DR GAINES [address] [place] [phone] 07/13/2024 9:00 AM CUSTOMER SUPPLY CHAIN ANALYST - 07/13/2024 9:30 AM CUSTOMER SUPPLY CHAIN ANALYST Surgery [facility] [address] [place] [address] Jaya Grier MD [address] [place] [address] DR GAINES [address] [place] [id number] ESOPHAGOGASTRODUODENOSCOPY Scheduled Procedures Name Priority Associated Diagnoses Date/Ti vt ESOPHAGOGASTRODUODENOSCOPY Anemia, unspecified type Gastritis without bleeding, unspecified chronicity, unspecified gastritis type 07/13/2024 9:00 AM CUSTOMER SUPPLY CHAIN ANALYST COLONOSCOPY Iron deficiency anemia due to chronic blood loss documented as of this encounter Visit Diagnoses Diagnosis Chronic left shoulder pain- Primary Pain in joint, shoulder region Anemia, unspecified type Gastritis without bleeding, unspecified chronicity, unspecified gastritis type documented in this encounter Care Teams Ice Plant Operator Relationship Specialty Start Date End Date Cherelle Corcoran MD PCP - General Family Medicine 08/30/19 Mark Queen MD Consulting Physician Infectious Diseases 01/10/20 documented as of this encounter
--- OUTSIDE RECORDS SUMMARY | 2024-07-04 04:19 | XMS_ITS | Encounter Summary ---
Author Organization [facility] Address [address] [place] [address] Care Team Providers Care Survey Data Technician Name Role Phone Cherelle Corcoran MD Primary Care Pro vider Mark Qeuen MD Unavailable [phone] Encounter Details Date Type Department Care Team (Late st Contact Info) Description 07/25/2020 Telephone [facility] Primary Care [address] [place] [address] Cherelle Corcoran MD [facility] [address] [place] [address] Social History Tobacco Use Types Packs/Day Years Used Date Smoking Tobacco: Never Smokeless Tobacco: Never Alcohol Use Standard Drinks/Week Comments Not Currently 0 (1 standard drink = 0.6 oz pur e alcohol) PHQ-2 Answer Date Recorded PHQ-2 Total Score 0 01/17/2020 Comments No Sex and Gender Information Value Date Recorded Sex Assigned at Not on file Legal Sex Female 9:03 AM SOFT BOARDER Gender Identity Female 02/08/2020 6:39 PM CDT Sexual Orientation Not on file documented as of this encounter Miscellaneous Notes * Telephone Encounter - Anshu Platt MA - 07/25/2020 10:57 AM CST Lidocaine 5% PA pending approval. BOARDER documented in this encounter Plan of Treatment Upcoming Encounters Date Type Department Care Team (Latest Contact Info) Description 07/13/2024 9:00 AM SOFT BOARDER Hospital Encounter [facility] [address] [place] [address] Jaya Grier MD [facility] [address] GAINES [address] [place] [address] 07/13/2024 9:00 AM SOFT BOARDER - 07/13/2024 9:30 AM SOFT BOARDER Surgery [facility] GI Lab [address] [place] [id number] Jaya Grier MD [address] [place] [address] DR GAINES [address] [place] [address] ESOPHAGOGASTRODUODENOSCOPY Scheduled Procedures Name Priority Associated Diagnoses Date/Ti me ESOPHAGOGASTRODUODENOSCOPY Anemia, unspecified type Gastritis without bleeding, unspecified chronicity, unspecified gastritis type 07/13/2024 9:00 AM SOFT BOARDER COLONOSCOPY Iron deficiency anemia due to chronic blood loss documented as of this encounter Visit Diagnoses Not on filedocumented in this encounter Additional Health Concerns Infection Onset Date Last Indicated Resolved Time MRSA 01/06/2020 01/06/2020 02/06/2021 5:00 AM CDT documented as of this encounter Care Teams Survey Data Technician Relationship Specialty Start Date End Date Cherelle Corcoran MD PCP - General Family Medicine 08/30/19 Mark Queen MD Consulting Physician Infectious Diseases 01/10/20 documented as of this encounter
--- OUTSIDE RECORDS SUMMARY | 2024-07-04 04:19 | XMS_ITS | Encounter Summary ---
Author Organization [facility] Address [address] [place] [address] Care Team Providers Care Station Gateman Name Role Phone Cherelle Corcoran MD Primary Care Pro vider Mark Queen MD Unavailable [phone] Encounter Details Date Type Department Care Team (Late st Contact Info) Description 07/24/2020 Orders Only [facility] [address] [place] [address] Scanning, Provider Social History Tobacco Use Types Packs/Day Years Used Date Smoking Tobacco: Never Smokeless Tobacco: Never Alcohol Use Standard Drinks/Week Comments Not Currently 0 (1 standard drink = 0.6 oz pur e alcohol) PHQ-2 Answer Date Recorded PHQ-2 Total Score 0 01/17/2020 Comments No Sex and Gender Information Value Date Recorded Sex Assigned at Not on file Legal Sex Female 9:03 AM CLERK CASHIER Gender Identity Female 02/08/2020 6:39 PM CDT Sexual Orientation Not on file documented as of this encounter Plan of Treatment Upcoming Encounters Date Type Department Care Team (Latest Contact Info) Description 07/13/2024 9:00 AM CLERK CASHIER Hospital Encounter [facility] [address] [place] [address] Jaya Grier MD [address] [address] 07/13/2024 9:00 AM CLERK CASHIER - 07/13/2024 9:30 AM CLERK CASHIER Surgery [facility] [address] [place] [address] Jaya Grier MD [address] [facility] [address] [place] [address] ESOPHAGOGASTRODUODENOSCOPY Scheduled Procedures Name Priority Associated Diagnoses Date/Ti me ESOPHAGOGASTRODUODENOSCOPY Anemia, unspecified type Gastritis without bleeding, unspecified chronicity, unspecified gastritis type 07/13/2024 9:00 AM CLERK CASHIER COLONOSCOPY Iron deficiency anemia due to chronic blood loss documented as of this encounter Procedures Procedure Name Priority Date/Time Associated Diagnosis Comments SCAN - RADIOLOGY/IMAGING 07/24/2020 documented in this encounter Results * SCAN - RADIOLOGY/IMAGING (07/24/2020) Anatomical Region Laterality Modality Other Provider Scanning Final Result documented in this encounter Visit Diagnoses Not on filedocumented in this encounter Additional Health Concerns Infection Onset Date Last Indicated Resolved Time MRSA 01/06/2020 01/06/2020 02/06/2021 5:00 AM CDT documented as of this encounter Care Teams Station Gateman Relationship Specialty Start Date End Date Cherelle Corcoran MD PCP - General Family Medicine 08/30/19 Mark Queen MD Consulting Physician Infectious Diseases 01/10/20 documented as of this encounter
--- OUTSIDE RECORDS SUMMARY | 2024-07-04 04:19 | XMS_ITS | Encounter Summary ---
Author Organization [facility] Address [address] [place] [address] Care Team Providers Care Bathroom Tiling Professional Name Role Phone Cherelle Corcoran MD Primary Care Pro vider Mark Queen MD Unavailable [phone] Encounter Details Date Type Department Care Team (Late st Contact Info) Description 07/25/2020 Telephone [facility] Primary Care [address] [facility] [place] [address] Natacha London MA Social History [...] on file Legal Sex Female 9:03 AM GLASS TECHNICIAN/INSTALLER Gender Identity Female 02/08/2020 6:39 PM CDT Sexual Orientation Not on file documented as of this encounter Miscellaneous Notes * Telephone Encounter - Natacha London MA - 08/03/2020 9:20 AM CST Informed daughter. She verbalized understanding. S TECHNICIAN/INSTALLER * Telephone Encounter - Natacha London MA - 07/26/2020 1:10 PM CST Sent portal [facility] S TECHNICIAN/INSTALLER * Telephone Encounter - Natacha London MA - 07/26/2020 1:07 PM CST ----- Message from Cherelle Corcoran MD sent at 07/26/2020 6:34 AM GLASS TECHNICIAN/INSTALLER ----- Please let daughter know that XR just shows arthritis. Plan for PHYSICAL THERAPY as discussed. Thanks S TECHNICIAN/INSTALLER * Telephone Encounter - Natacha London MA - 07/25/2020 1:11 PM CST LMOR S TECHNICIAN/INSTALLER * Telephone Encounter - Natacha London MA - 07/25/2020 10:12 AM CST ----- Message from Cherelle Corcoran MD sent at 07/25/2020 10:01 AM GLASS TECHNICIAN/INSTALLER ----- Please let daughter know that Barbara's kidney function is also decreased so recommend evaluation withnephrologist, referral placed. They should call us if they don't get a call to schedule within a week. thanks S TECHNICIAN/INSTALLER * Telephone Encounter - Natacha oLndon MA - 07/25/2020 10:11 AM CST ----- Message from Cherelle Corcoran MD sent at 07/25/2020 9:59 AM GLASS TECHNICIAN/INSTALLER ----- Please let daughter know that Barbara's labs showed the reason she is having swelling in her legs maybe from her heart not pumping the way it should. I have placed a referral to cardiology so they can take a look at her heart with ultrasound. thanks S TECHNICIAN/INSTALLER documented in this encounter Plan of Treatment Upcoming Encounters Date Type Department Care Team (Latest Contact Info) Description 07/13/2024 9:00 AM GLASS TECHNICIAN/INSTALLER Hospital Encounter [facility] GI [facility] [address] [place] [address] Jaya Grier MD [address] [facility] [address] [place] [address] 07/13/2024 9:00 AM GLASS TECHNICIAN/INSTALLER - 07/13/2024 9:30 AM GLASS TECHNICIAN/INSTALLER Surgery [facility] [address] [place] [address] Jaya Grier MD [address] [facility] [address] [place] [address] ESOPHAGOGASTRODUODENOSCOPY Scheduled Procedures Name Priority Associated Diagnoses Date/Ti me ESOPHAGOGASTRODUODENOSCOPY Anemia, unspecified type Gastritis without bleeding, unspecified chronicity, unspecified gastritis type 07/13/2024 9:00 AM GLASS TECHNICIAN/INSTALLER COLONOSCOPY Iron deficiency anemia due to chronic blood loss documented as of this encounter Visit Diagnoses Not on filedocumented in this encounter Additional Health Concerns Infection Onset Date Last Indicated Resolved Time MRSA 01/06/2020 01/06/2020 02/06/2021 5:00 AM CDT documented as of this encounter Care Teams Bathroom Tiling Professional Relationship Specialty Start Date End Date Cherelle Corcoran MD PCP - General Family Medicine 08/30/19 Mark Queen MD Consulting Physician Infectious Diseases 01/10/20 documented as of this encounter
--- OUTSIDE RECORDS SUMMARY | 2024-07-04 04:19 | XMS_ITS | Encounter Summary ---
Author Organization [facility] Address [address] [place] [address] Care Team Providers Care Vb Net Programmer Name Role Phone Cherelle Corcoran MD Primary Care Pro vider Mark Queen MD Unavailable [phone] Reason for Visit * Reason Comments PT Treatment Encounter Details Date Type Department Care Team (Late st Contact Info) Description 12/25/2020 1:45 PM CDT Therapy [facility] Medical Office Bldg 1 OP Physical Therapy [address] [place] [id number] Kayden Iyer, PT Chronic left shoulder pain (Primary Dx) Social History Tobacco Use Types Packs/Day Years Used Date Smoking Tobacco: Never Smokeless Tobacco: Never Alcohol Use Standard Drinks/Week Comments Not Currently 0 (1 standard drink = 0.6 oz pur e alcohol) PHQ-2 Answer Date Recorded PHQ-2 Total Score 0 01/17/2020 Comments No Sex and Gender Information Value Date Recorded Sex Assigned at Not on file Legal Sex Female 9:03 AM ELEVATED MOTORMAN Gender Identity Female 02/08/2020 6:39 PM CDT Sexual Orientation Not on file documented as of this encounter Progress Notes * Kayden Iyer, PT - 12/25/2020 1:45 PM CDT Precautions: none Date Date Date Date Date 12/18/20 12/25/20 Visit Number 1 2 Exercises/Treatment Pulleys UBE 4 min F/B 4' F/B bilat wall slides 1 x 10 Theraband Rows Shoulder extension red 1 x 10 1 x 10 RED 2/10 2/10 sidelying shoulder ER 1# 2/10 Shoulder PROM 15' Supine shoulder flexion 1# 2/10 Prone shoulder ext 1# 2/10 IFC - R shoulder/scapula DNP Goals: Short-Term Goals: to be met by 01/29/21 1. Patient will be instructed in HEP 2. Patient will be able to complete shoulder flexion to 150 deg without increased symptoms. 3. Patient will be able to reach the back of her head with her R UE without increased symptoms. Long-Term Goals: to be met by 03/11/21 1. Patient will be independent in HEP (new and revised). 2. Patient will demonstrate 4+/5 strength throughout R shoulder without increased symptoms. 3. Patient will be able to lift 10 lbs from the floor without increased symptoms. * Kayden Iyer, PT - 12/25/2020 1:45 PM CDT Images from the original note were not included. Physical Therapy Daily Visit Report 12/25/2020 Barbara Banksgers 1950 ICD-9-CM ICD-10-CM 1. Chronic left shoulder pain 719.41 M25.512 338.29 G89.29 Precautions: None Subjective: Pt reports her L shoulder is doing better. Pt is reporting continued difficulty with sleeping, reaching. Pain today is 0/10. Changes since last visit include Less L shoulder pain. Objective: Objective Measurement/Observation: AROM Flexion R 140, L 145. Specific exercises and treatment interventions are outlined on exercise worksheet document. Home Exercise Program: Reports fair compliance. Assessment: Patient tolerated today's treatment well without adverse effects. She needs constant cues for proper form during each exercise. Patient demonstrates mild L shoulder mobility issues which is contributing to difficulty with reaching, sidelying position. Patient would benefit from additional skilled therapy services in order to address above deficits and return to prior level of function. Goals Addressed This Visit: Shoulder ROM. Patient needs cues for all HEP exercises. Plan: Patient would benefit from the following modification on next visit: Cont to review HEP. Therapy will continue to address these impairments in order to progress towards functional goals. Kayden Iyer, LULI [facility] documented in this encounter Plan of Treatment Upcoming Encounters Date Type Department Care Team (Latest Contact Info) Description 07/13/2024 9:00 AM ELEVATED MOTORMAN Hospital Encounter [facility] Lab [address] [place] [address] Jaya Grier MD [facility] [facility] [address] [place] [address] 07/13/2024 9:00 AM ELEVATED MOTORMAN - 07/13/2024 9:30 AM ELEVATED MOTORMAN Surgery [facility] Lab [address] [place] [address] Jaya Grier MD [address] [place] [address] [address] [place] [address] ESOPHAGOGASTRODUODENOSCOPY Scheduled Procedures Name Priority Associated Diagnoses Date/Ti ar ESOPHAGOGASTRODUODENOSCOPY Anemia, unspecified type Gastritis without bleeding, unspecified chronicity, unspecified gastritis type 07/13/2024 9:00 AM ELEVATED MOTORMAN COLONOSCOPY Iron deficiency anemia due to chronic [...] documented as of this encounter Care Teams Vb Net Programmer Relationship Specialty Start Date End Date Cherelle Corcoran MD PCP - General Family Medicine 08/30/19 Mark Queen MD Consulting Physician Infectious Diseases 01/10/20 documented as of this encounter
--- OUTSIDE RECORDS SUMMARY | 2024-07-04 04:19 | XMS_ITS | Encounter Summary ---
Author Organization [facility] Address [address] [place] [address] Care Team Providers Care Shaker Tender Name Role Phone Duane Callahan MD Primary Care Pro vider Mark Queen MD Unavailable [phone] Encounter Details Date Type Department Care Team (Late st Contact Info) Description 12/10/2020 Orders Only [facility] Testing Site - [address] [place] [address] Duane Callahan MD [address] [place] [address] Exposure to SARS-associated coronavirus (Primary Dx) Social History Tobacco Use Types Packs/Day Years Used Date Smoking Tobacco: Never Smokeless Tobacco: Never Alcohol Use Standard Drinks/Week Comments Not Currently 0 (1 standard drink = 0.6 oz pur e alcohol) PHQ-2 Answer Date Recorded PHQ-2 Total Score 0 01/17/2020 Comments No Sex and Gender Information Value Date Recorded Sex Assigned at Not on file Legal Sex Female 9:03 AM CRANE MANAGER Gender Identity Female 02/08/2020 6:39 PM CDT Sexual Orientation Not on file documented as of this encounter Progress Notes * Brigid Newton 12/10/2020 4:13 PM CDT Ordering User: Duane Callahan MD Auth Provider: DUANE CALLAHAN [facility] Provider: Duane Callahan MD Diagnosis: Cough Department: [facility] Instruct: ?? Comment: ?? Order Specific Questions Question Answer Comment Testing types: Symptomatic with high risk condition ?? High risk condition: Diabetes with complications (e.g. diabetic neuropathy, neuropathy, retinopathy) ?? Date of Symptom Onset 12/08/2020 ?? Testing site patient will be sent to: [place], [place] ?? Date testing requested: 12/11/2020 ?? Testing: COVID/FLU ?? Does the patient currently work in a healthcare facility with direct patient contact? No ?? Is the patient a resident of a congregate care or living setting? No ?? Is the patient ? No ?? Please select the performing region: [facility] documented in this encounter Plan of Treatment Upcoming Encounters Date Type Department Care Team (Latest Contact Info) Description 07/13/2024 9:00 AM CRANE MANAGER Hospital Encounter [facility] GI Lab [address] [place] [address] Jaya Grier MD [facility] [address] [place] [address] 07/13/2024 9:00 AM CRANE MANAGER - 07/13/2024 9:30 AM CRANE MANAGER Surgery [facility] Lab [address] [place] [address] Jaya Grier MD [address] [facility] [address] [place] [address] ESOPHAGOGASTRODUODENOSCOPY Scheduled Procedures Name Priority Associated Diagnoses Date/Ti ok ESOPHAGOGASTRODUODENOSCOPY Anemia, unspecified type Gastritis without bleeding, unspecified chronicity, unspecified gastritis type 07/13/2024 9:00 AM CRANE MANAGER COLONOSCOPY Iron deficiency anemia due to chronic blood loss documented as of this encounter Visit Diagnoses Diagnosis Exposure to SARS-associated coronavirus- Primary Anemia, unspecified type Gastritis without bleeding, unspecified chronicity, unspecified gastritis type documented in this encounter Additional Health Concerns Infection Onset Date Last Indicated Resolved Time MRSA 01/06/2020 01/06/2020 02/06/2021 5:00 AM CDT COVID: Suspected 12/10/2020 12/10/2020 12/24/2020 3:05 AM CDT documented as of this encounter Care Teams Shaker Tender Relationship Specialty Start Date End Date Duane Callahan MD PCP - General Family Medicine 08/30/19 Mark Queen MD Consulting Physician Infectious Diseases 01/10/20 documented as of this encounter
--- OUTSIDE RECORDS SUMMARY | 2024-07-04 04:19 | XMS_ITS | Encounter Summary ---
Author Organization [facility] Address [address] [place] [address] Care Team Providers Care Photographer Name Role Phone Cherelle Corcoran MD Primary Care Pro vider Mark Queen MD Unavailable [phone] Reason for Visit * Reason Onset Date Comments 07-23-20 [facility] ER [facility] 08/15/2020 Encounter Details Date Type Department Care Team ([facility] st Contact Info) Description 08/15/2020 Telephone [facility] Primary Care [address] [facility] [address] [place] [address] Cherelle Corcoran MD [address] [place] [address] 07-23-20 [facility] Social History Tobacco Use Types Packs/Day Years Used Date Smoking Tobacco: Never Smokeless Tobacco: Never Alcohol Use Standard Drinks/Week Comments Not Currently 0 (1 standard drink = 0.6 oz pur e alcohol) PHQ-2 Answer Date Recorded PHQ-2 Total Score 0 01/17/2020 Comments No Sex and Gender Information Value Date Recorded Sex Assigned at Not on file Legal Sex Female 9:03 AM PHARMACIST CRITICAL CARE Gender Identity Female 02/08/2020 6:39 PM CDT Sexual Orientation Not on file documented as of this encounter Miscellaneous Notes * Telephone Encounter - Romelia Taylor - 08/15/2020 3:15 PM CST [facility] records from 07-23-20 ER visit. Records to be placed in [facility] black tray. Vianney Luna MACIST CRITICAL CARE documented in this encounter Plan of Treatment Upcoming Encounters Date Type Department Care Team (Latest Contact Info) Description 07/13/2024 9:00 AM PHARMACIST CRITICAL CARE Hospital Encounter [facility] GI Lab [address] [place] [address] Jaya Grier MD [address] [place] [address] [address] [place] [address] 07/13/2024 9:00 AM PHARMACIST CRITICAL CARE - 07/13/2024 9:30 AM PHARMACIST CRITICAL CARE Surgery [facility] GI Lab [address] [place] [address] Jaya Grier MD [facility] [address] [place] [address] ESOPHAGOGASTRODUODENOSCOPY Scheduled Procedures Name Priority Associated Diagnoses Date/Ti me ESOPHAGOGASTRODUODENOSCOPY Anemia, unspecified type Gastritis without bleeding, unspecified chronicity, unspecified gastritis type 07/13/2024 9:00 AM PHARMACIST CRITICAL CARE COLONOSCOPY Iron deficiency anemia due to chronic blood loss documented as of this encounter Visit Diagnoses Not on filedocumented in this encounter Additional Health Concerns Infection Onset Date Last Indicated Resolved Time MRSA 01/06/2020 01/06/2020 02/06/2021 5:00 AM CDT documented as of this encounter Care Teams Photographer Relationship Specialty Start Date End Date Cherelle Corcoran MD PCP - General Family Medicine 08/30/19 Mark Queen MD Consulting Physician Infectious Diseases 01/10/20 documented as of this encounter
--- OUTSIDE RECORDS SUMMARY | 2024-07-04 04:19 | XMS_ITS | Encounter Summary ---
Author Organization [facility] Address [address] [place] [address] Care Team Providers Care Speech Pathologist Assistant Name Role Phone Cherelle Corcoran MD Primary Care Pro vider Mark Queen MD Unavailable [phone] Reason for Visit * Reason Comments Hypertension 3 mo fu Hyperlipidemia Encounter Details Date Type Department Care Team (Latest Contact Info) Description 12/18/2020 10:15 AM CDT Office Visit [facility] Cardiology [address] [place] [address] Santo Vail MD [address] [place] [address] Hyperlipidemia, unspecified hyperlipidemia type (Primary Dx) Social History Tobacco Use Types Packs/Day Years Used Date Smoking Tobacco: Never Smokeless Tobacco: Never Alcohol Use Standard Drinks/Week Comments Not Currently 0 (1 standard drink = 0.6 oz pur e alcohol) PHQ-2 Answer Date Recorded PHQ-2 Total Score 0 01/17/2020 Comments No Sex and Gender Information Value Date Recorded Sex Assigned at Not on file Legal Sex Female 9:03 AM MATERNAL CHILD NURSE Gender Identity Female 02/08/2020 6:39 PM CDT Sexual Orientation Not on file documented as of this encounter Last Filed Vital Signs Vital Sign Reading Time Taken Comments Blood Pressure 140/78 12/18/2020 10:02 AM CDT Pulse 84 12/18/2020 10:02 AM CDT Temperature - - Respiratory Rate - - Oxygen Saturation 99% 12/18/2020 10:02 AM CDT Inhaled Oxygen Concentration - - Weight 61 kg (134 lb 6.4 oz) 12/18/2020 10:02 AM CDT Height 157.5 cm (5' 2 ) 12/18/2020 10:02 AM CDT Body Mass Index 24.58 12/18/2020 10:02 AM CDT documented in this encounter Progress Notes * Santo Vail MD - 12/18/2020 10:15 AM CDT Images from the original note were not included. Cardiology Initial Clinic Visit HPI: We are seeing Barbara Chakraborty in clinic today for initial office visit. Patient is a 70 y.o. female with past medical history notable for diabetes and hypertension now presenting to [facility] care. She has been having some lower extremity swelling. Also having some numbness. No chest pain or dyspnea. No orthopnea or PND. States BP well controlled at home. 12/18/20 Feeling well overall. No cardiac symptoms. Review of Systems: 14 point ROS [...] Dr. Anat Pelayo Current Outpatient Medications: ??? aspirin, 325 mg, oral, Q6H PRN ??? atorvastatin, TAKE 1 TABLET(40 MG) BY MOUTH DAILY ??? dulaglutide, 3 mg, subcutaneous, Weekly ??? empagliflozin, 10 mg, oral, Before breakfast ??? ferrous sulfate, 65 mg of elemental iron, oral, Daily with breakfast ??? glucose, 16 g, oral, PRN ??? lancets, Check blood sugar up to 3 times a day ??? LANTUS, ADMINISTER 42 UNITS UNDER THE SKIN DAILY ??? lidocaine, 1 patch, transdermal, Daily ??? lisinopriL, 10 mg, oral, Daily ??? multivitamin with minerals, 1 tablet, oral, Daily ??? omeprazole, 20 mg, oral, Daily ??? OneTouch Verio test strips, TEST 3 TO 4 TIMES DAILY ??? pen needle, diabetic, Use to inject basaglar nightly ??? risperiDONE, 2 mg, oral, Nightly ??? syringe with needle, insulin (INSULIN SYRINGE-NEEDLE U-100 MIS), 3 times a day No Known Allergies Social History Tobacco Use ??? Smoking status: Never Smoker ??? Smokeless tobacco: Never Used Substance Use Topics ??? Alcohol use: Not Currently Family History Problem Relation Age of Onset ??? Stomach cancer Father Physical Exam: Vitals BP 140/78 (BP Location: Left arm, Patient Position: Sitting) Pulse 84 Ht 157.5 cm (5' 2 ) Wt 61 kg (134 lb 6.4 oz) SpO2 99% BMI 24.58 kg/m?? General: Pleasant female in no acute [...] Review: Sodium Date Value Ref Range Status 07/24/2020 140 135 - 145 mmol/L Final 05/28/2020 142 135 - 145 mmol/L Final 04/02/2020 142 135 - 145 mmol/L Final Potassium Date Value Ref Range Status 07/24/2020 4.5 3.3 - 5.1 mmol/L Final 05/28/2020 4.9 3.3 - 5.1 mmol/L Final 04/02/2020 4.8 3.3 - 5.1 mmol/L Final Chloride Date Value Ref Range Status 07/24/2020 100 96 - 108 mmol/L Final 05/28/2020 104 96 - 108 mmol/L Final 04/02/2020 104 96 - 108 mmol/L Final Carbon Dioxide Date Value Ref Range Status 07/24/2020 31 22 - 32 mmol/L Final 05/28/2020 29 22 - 32 mmol/L Final 04/02/2020 24 22 - 32 mmol/L Final BUN Date Value Ref Range Status 02/13/2020 24 8 - 25 mg/dL Final 02/09/2020 25 8 - 25 mg/dL Final 02/06/2020 21 8 - 25 mg/dL Final Creatinine Date Value Ref Range Status 07/24/2020 1.5 (H) 0.5 - 1.1 mg/dL [...] be calculated if Creatinine result is <0.2. 04/02/2020 1.1 0.5 - 1.1 mg/dL Final Comment: NOTE: Estimated GFR (Cockroft-Gault) will NOT be calculated unless patient Height and Weight were entered. Also, Kidney Disease Stage (GFR) and Estimated GFR (Cockroft-Gault) will NOT be calculated if Creatinine result is <0.2. GFR Date Value Ref Range Status 02/13/2020 45 mL/min/1.73 m2 Final Comment: Interpretive Data Reference Interval Normal >/= 90 mL/min/1.73m2 Mildly decreased* 60 - 89 mL/min/1.73m2 Mildly to moderately decreased 45 - 59 mL/min/1.73m2 Moderately to severely decreased 30 - 44 mL/min/1.73m2 Severely decreased 15 - 29 mL/min/1.73m2 Kidney Failure < 15 mL/min/1.73m2 *Relative to young adult level If -[place] Island[place] multiply value by 1.16. Estimated glomerular filtration [...] mL/min/1.73m2 *Relative to young adult level If -[place] Island[place] multiply value by 1.16. Estimated glomerular filtration [...] Current interpretive data was last reviewed 2016. 02/06/2020 49 mL/min/1.73 m2 Final Comment: Interpretive Data Reference Interval Normal >/= 90 mL/min/1.73m2 Mildly decreased* 60 - 89 mL/min/1.73m2 Mildly to moderately decreased 45 - 59 mL/min/1.73m2 Moderately to severely decreased 30 - 44 mL/min/1.73m2 Severely decreased 15 - 29 mL/min/1.73m2 Kidney Failure < 15 mL/min/1.73m2 *Relative to young adult level If -[place] Island[place] multiply value by 1.16. Estimated glomerular filtration [...] 2016. Glucose Date Value Ref Range Status 07/24/2020 178 (H) 70 - 100 mg/dL Final Alkaline Phosphatase Date Value Ref Range Status 07/24/2020 118 (H) 35 - 104 U/L Final 05/28/2020 129 (H) 35 - 104 U/L Final 04/02/2020 132 (H) 35 - 104 U/L Final Total Bilirubin Date Value Ref Range Status 07/24/2020 <0.2 0.0 - 1.2 mg/dL Final 05/28/2020 0.2 0.0 - 1.2 mg/dL Final 04/02/2020 0.3 0.0 - 1.2 mg/dL Final Albumin Date Value Ref Range Status 07/24/2020 3.6 3.5 - 5.0 g/dL Final 05/28/2020 4.2 3.5 - 5.0 g/dL Final 04/02/2020 4.0 3.5 - 5.0 g/dL Final ALT Date Value Ref Range Status 07/24/2020 7 0 - 33 U/L Final 05/28/2020 12 0 - 33 U/L Final 04/02/2020 12 0 - 33 U/L Final AST Date Value Ref Range Status 07/24/2020 17 0 - 32 U/L Final 05/28/2020 20 0 - 32 U/L Final 04/02/2020 15 0 - 32 U/L Final TSH W REFLEX TO FT4 Date Value Ref Range Status 10/16/2020 0.990 0.27 - 4.20 uIU/mL Final Cholesterol Date Value Ref Range Status 04/02/2020 211 (H) 0 - 199 mg/dL Final Comment: National Lipid Association/NCEP Guidelines: Desirable < 200 mg/dL Borderline high: 200-239 mg/dL High Risk: >=240 mg/dL Triglycerides Date Value Ref Range Status 04/02/2020 123 0 - 149 mg/dL Final Comment: National Lipid Association/NCEP Guidelines: Normal < 150 mg/dL Borderline high 150-199 mg/dL High 200-499 mg/dL Very High >=500 mg/dL HDL Cholesterol Date Value Ref Range Status 04/02/2020 51 mg/dL Final Comment: Reference Ranges: Males: >=40 mg/dL Females: >=50 mg/dL LDL Cholesterol, Calc Date Value Ref Range [...] 0-125 pg/mL >74 years: 0-450 pg/mL Method: 1o1Media Assessement and Plan -hypertension. Blood pressure is reasonably controlled on current regimen. Continue lisinopril 10 mg daily. Bring log to next visit. -hyperlipidemia. Tc 211, ldl 135, hdl 51, trig 123 In 03/2020. Increased atorvastatin 20 to 40 lastvisit--will recheck lipids prior to next visit. -lower extremity swelling. Normal LV function on TTE 12/2019. Better today. -DM2. She is managed by primary care physician. In the future, she needs additional glycemic control, could consider an SGLT 2 inhibitor for cardiac risk reduction. -CKD 3. Sees Dr Ryan. -Cardiac Risk [...] (Latest Contact Info) Description 07/13/2024 9:00 AM MATERNAL CHILD NURSE Hospital Encounter [facility] [address] [place] [address] Jaya Grier MD [address] [place] [address] [address] 07/13/2024 9:00 AM MATERNAL CHILD NURSE - 07/13/2024 9:30 AM MATERNAL CHILD NURSE Surgery [facility] [address] [place] [address] Jaya Grier MD [address] [facility] [address] [address] ESOPHAGOGASTRODUODENOSCOPY Scheduled Procedures Name Priority Associated Diagnoses Date/Ti me ESOPHAGOGASTRODUODENOSCOPY Anemia, unspecified type Gastritis without bleeding, unspecified chronicity, unspecified gastritis type 07/13/2024 9:00 AM MATERNAL CHILD NURSE COLONOSCOPY Iron deficiency anemia due to chronic blood loss documented as of this encounter Visit Diagnoses Diagnosis Hyperlipidemia, unspecified hyperlipidemia type- Primary Anemia, unspecified type Gastritis without bleeding, unspecified chronicity, unspecified gastritis type documented in this encounter Discontinued Medications Medication Sig Discontinue Reason Start Date End Da te docusate sodium (COLACE) 100 mg capsuleIndications:co nstipation Take 1 capsule (100 mg total) by mouth 2 (two) times a day as needed for constipation Therapy completed 10/02/2020 12/18/2020 documented as of this encounter Additional Health Concerns Infection Onset Date Last Indicated Resolved Time MRSA 01/06/2020 01/06/2020 02/06/2021 5:00 AM CDT COVID: Suspected 12/10/2020 12/10/2020 12/24/2020 3:05 AM CDT documented as of this encounter Care Teams Speech Pathologist Assistant Relationship Specialty Start Date End Date Cherelle Corcoran MD PCP - General Family Medicine 08/30/19 Mark Queen MD Consulting Physician Infectious Diseases 01/10/20 documented as of this encounter
--- OUTSIDE RECORDS SUMMARY | 2024-07-04 04:19 | XMS_ITS | Encounter Summary ---
Author Organization [facility] Healthcare Address [address] [place] [address] Care Team Providers Care Site Interpreter Name Role Phone Cherelle Corcoran MD Primary Care Pro vider Mark Queen MD Unavailable [phone]- [phone] Encounter Details Date Type Department Care Team (Late st Contact Info) Description 08/14/2020 4:45 PM DUCK OPERATOR - 08/19/2020 11:59 PM DUCK OPERATOR Hospital Encounter [facility] Cherelle Corcoran MD [address] [address] Social History Tobacco Use Types Packs/Day Years Used Date Smoking Tobacco: Never Smokeless Tobacco: Never Alcohol Use Standard Drinks/Week Comments Not Currently 0 (1 standard drink = 0.6 oz pur e alcohol) PHQ-2 Answer Date Recorded PHQ-2 Total Score 0 01/17/2020 Comments No Sex and Gender Information Value Date Recorded Sex Assigned at Not on file Legal Sex Female 9:03 AM DUCK OPERATOR Gender Identity Female 02/08/2020 6:39 PM CDT Sexual Orientation Not on file documented as of this encounter Medications at Time of Discharge ferrous sulfate 325 mg (65 mg of elemental iron) tabletIndications: Iron Deficiency Anemia Take 1 tablet (325 mg total) by mouth daily with breakfast 30 tablet 11 01/11/2020 01/11/20 21 aspirin 325 mg tabletIndications: Pain Take 325 mg by mouth every 6 (six) hours as needed for pain. Indications: pain 02/22/20 21 atorvastatin (LIPITOR) 20 mg tabletIndications: Hyperlipidemia associated with type 2 diabetes mellitus (HCC) Take 1 tablet (20 mg total) by mouth daily 90 tablet 3 07/24/2020 09/12/19 21 docusate sodium (COLACE) 100 mg capsuleIndications :constipation Take 1 capsule (100 mg total) by mouth 2 (two) times a day as needed for constipation 01/10/2020 10/03/19 21 dulaglutide (TRULICITY) 1.5 mg/0.5 mL pen injectorIndication s:Uncontrolled type 2 diabetes mellitus with hyperglycemia (HCC) Inject 0.5 mL (1.5 mg total) under the skin once a week 2 mL 1 07/24/2020 08/29/19 21 insulin glargine (LANTUS,BASAGLAR) 100 unit/mL (3 mL) insulin penIndications:Unc ontrolled type 2 diabetes mellitus with hyperglycemia (HCC) Inject 42 Units under the skin daily 5 pen 3 06/01/2020 10/03/19 21 lidocaine (LIDODERM) 5 %Indications:Acute upper back pain Place 1 patch on the skin daily Apply to painful area 12 hours per day, remove for 12 hours. 30 patch 1 07/24/2020 04/05/20 21 lisinopriL (PRINIVIL,ZESTRIL) 10 mg tabletIndications: Essential hypertension Take 1 tablet (10 mg total) by mouth daily 30 tablet 5 12/09/2019 10/03/19 21 meclizine (ANTIVERT) 25 mg tablet TK 1 T PO TID PRF DIZZINESS 03/25/2020 12/11/19 21 omeprazole (PriLOSEC) 20 mg capsule Take 1 capsule (20 mg total) by mouth daily 90 capsule 07/24/2020 01/17/20 21 OneTouch Verio test strips stripIndications:U ncontrolled type 2 diabetes mellitus with hyperglycemia (HCC) TEST 3 TO 4 TIMES DAILY 400 each 1 08/10/2020 06/25/19 22 pen needle, diabetic 32 gauge x 3/16 needleIndications: Uncontrolled type 2 diabetes mellitus with hyperglycemia (HCC) Use to inject basaglar nightly 100 each 1 01/17/2020 06/25/19 22 sodium chloride 0.9% injectionIndicatio ns:line care Infuse 10 mL into a venous catheter as needed for line care. Indications: line care 09/13/19 21 syringe with needle, insulin (INSULIN SYRINGE-NEEDLE U-100 MISC) 3 times a day 09/12/2017 12/01/19 23 documented as of this encounter Plan of Treatment Upcoming Encounters Date Type Department Care Team (Latest Contact Info) Description 07/13/2024 9:00 AM DUCK OPERATOR Hospital Encounter [facility] [address] [place] [address] Jaya Grier MD [facility] [place] [id number] 07/13/2024 9:00 AM DUCK OPERATOR - 07/13/2024 9:30 AM DUCK OPERATOR Surgery [facility] [address] [place] [address] Jaya Grier MD [facility] [address] [place] [id number] ESOPHAGOGASTRODUODENOSCOPY Scheduled Procedures Name Priority Associated Diagnoses Date/Ti me ESOPHAGOGASTRODUODENOSCOPY Anemia, unspecified type Gastritis without bleeding, unspecified chronicity, unspecified gastritis type 07/13/2024 9:00 AM DUCK OPERATOR COLONOSCOPY Iron deficiency anemia due to chronic blood loss documented as of this encounter Visit Diagnoses Not on filedocumented in this encounter Additional Health Concerns Infection Onset Date Last Indicated Resolved Time MRSA 01/06/2020 01/06/2020 02/06/2021 5:00 AM CDT documented as of this encounter Care Teams Site Interpreter Relationship Specialty Start Date End Date Cherelle Corcoran MD PCP - General Family Medicine 08/30/19 Mark Queen MD Consulting Physician Infectious Diseases 01/10/20 documented as of this encounter
--- OUTSIDE RECORDS SUMMARY | 2024-07-04 04:19 | XMS_ITS | Encounter Summary ---
Author Organization [facility] Address [address] [facility] [address] [place] [address] Care Team Providers Care Tea Tree Farmer Name Role Phone Cherelle Corcoran MD Primary Care Pro vider Mark Queen MD Unavailable [phone] Reason for Visit * Reason Comments STEFANO (acute kidney injury) * Consultation (Routine) - Closed Specialty Diagnoses / Procedures Referred By Maryse t Referred To Contact Nephrology Diagnoses STEFANO (acute kidney injury) (HCC) Uncontrolled type 2 diabetes mellitus with hyperglycemia (HCC) Cherelle Corcoran MD Phone: tel: fax: [facility] Nephrology [address] [facility] [address] [place] [phone] Phone: tel: fax: Referral ID Status Reason Start Date Expiration Date V isits Requested Visits Authorized [id number] Closed Specialty Services Required 07/25/2020 08/24/2021 1 1 Encounter Details Date Type Department Care Team (Late st Contact Info) Description 09/12/2020 3:30 PM CDT Office Visit [facility] Nephrology [address] [facility] [address] [place] [phone] Markie Ryan MD [address] [facility] [address] [address] Elevated serum creatinine (Primary Dx); Uncontrolled type 2 diabetes mellitus with hyperglycemia (CMS/HCC); Stage 3a chronic kidney disease; Type 2 DM with CKD and hypertension (CMS/HCC); Benign hypertensive kidney disease with chronic kidney disease stage I through stage IV, or unspecified(403.10); Anemia in stage 3a chronic kidney disease; Diabetic nephropathy (CMS/[facility]) Social History Tobacco Use Types Packs/Day Years Used Date Smoking Tobacco: Never Smokeless Tobacco: Never Alcohol Use Standard Drinks/Week Comments Not Currently 0 (1 standard drink = 0.6 oz pur e alcohol) PHQ-2 Answer Date Recorded PHQ-2 Total Score 0 01/17/2020 Comments No Sex and Gender Information Value Date Recorded Sex Assigned at Not on file Legal Sex Female 9:03 AM PREP COOK Gender Identity Female 02/08/2020 6:39 PM CDT Sexual Orientation Not on file documented as of this encounter Last Filed Vital Signs Vital Sign Reading Time Taken Comments Blood Pressure 112/64 09/12/2020 3:21 PM CDT Pulse 83 09/12/2020 3:21 PM CDT Temperature 36.6 ??C (97.8 ??F) 09/12/2020 3:21 PM CD T Respiratory Rate - - Oxygen Saturation - - Inhaled Oxygen Concentration - - Weight 60.7 kg (133 lb 12.8 oz) 09/12/2020 3:21 PM CDT Height 157.5 cm (5' 2 ) 09/12/2020 3:21 PM CDT Body Mass Index 24.47 09/12/2020 3:21 PM CDT documented in this encounter Progress Notes * Markie Ryan MD - 09/12/2020 3:30 PM CDT Images from the original note were not included. Subjective/Objective Patient ID: Barbara Chakraborty is a 69 y.o. female. Chief Complaint STEFANO (acute kidney injury) HPI This is a patient I am asked to see in consultation by Dr. Corcoran for increasing serum creatinine. Most recent serum creatinine was 1.5 which is up from 1.0 previously. She has a history of diabetes since 1997 and a more recent history of hypertension. Prior echocardiogram showing normal LVEF. [id number] she had an estimated 270 mg of albuminuria per day by spot ratio. She does have a history of schizophrenia and has had difficulty controlling her glucose. Her hemoglobin A1c most recently has improved to 8 however down from 11 previously. Review of Systems Constitutional: Negative for appetite [...] times a day as needed for constipation ??? dulaglutide (TRULICITY) 3 mg/0.5 mL pen injector Inject 0.5 mL (3 mg total) under the skin oncea week 2 mL 0 ??? ferrous sulfate 325 mg (65 mg of elemental iron) tablet Take 1 tablet (325 mg total) by mouth daily with breakfast 30 tablet 11 ??? insulin glargine (LANTUS,BASAGLAR) 100 unit/mL (3 mL) insulin pen Inject 42 Units under the skin daily 5 pen 3 ??? lidocaine (LIDODERM) 5 % Place 1 patch on the skin daily Apply to painful area 12 hours per day, remove for 12 hours. 30 patch 1 ??? lisinopriL (PRINIVIL,ZESTRIL) 10 mg tablet Take 1 tablet (10 mg total) by mouth daily 30 tablet5 ??? meclizine (ANTIVERT) 25 mg tablet TK [...] this visit. No Known Allergies Vitals BP 112/64 (BP Location: Right arm, Patient Position: Sitting) Pulse 83 Temp 36.6 ??C (97.8 ??F) (Skin) Ht 157.5 cm (5' 2 ) Wt 60.7 kg (133 lb 12.8 oz) BMI 24.47 kg/m?? Physical Exam Constitutional: Appears well-developed and [...] Diagnoses and all orders for this visit: Elevated serum creatinine (R79.89) (Primary) - Ambulatory referral to Nephrology Uncontrolled type 2 diabetes mellitus with hyperglycemia (CMS/HCC) (E11.65) - Ambulatory referral to Nephrology Stage 3a chronic kidney disease (N18.31) - Comprehensive metabolic panel; Future - PTH; Future Type 2 DM with CKD and hypertension (CMS/HCC) (E11.22, I12.9) - Protein / creatinine ratio, urine, random; Future Benign hypertensive kidney disease with chronic kidney disease stage I through stage IV, or unspecified(403.10) (I12.9) Anemia in stage 3a chronic kidney disease (N18.31, D63.1) - CBC with auto differential; Future - Iron profile w/ IBC; Future - Vitamin B12 and Folate; Future Diabetic nephropathy (CMS/HCC) (E11.21) CKD with a long-term history of diabetes. The patient does have underlying schizophrenia and glucose control has been difficult although her A1c has been improving of late. We discussed at length theimportance of glucose control including dietary measures to assist with this. I suspect that part of the increase in her serum creatinine may be secondary to improved glucose control and decreased glomerular hyperfiltration. Her blood pressure is well controlled and she does continue on KRISTYN-inhibitor. Mild albuminuria previously. She does have mild anemia, part of this may be secondary to her CKDbut I will check iron studies/etcetera with her upcoming labs. We discussed dietary measures to help preserve GFR in addition to diabetic control. Her daughter did accompany her today. I will follow up on repeat labs. Continue current regimen for now documented in this encounter Plan of Treatment Upcoming Encounters Date Type Department Care Team (Latest Contact Info) Description 07/13/2024 9:00 AM [facility] Hospital Encounter [facility] GI Lab [address] [place] [id number] Jaya Grier MD [address] [place] [address] DR GAINES [address] [place] [phone] 07/13/2024 9:00 AM PREP COOK - 07/13/2024 9:30 AM [facility] Surgery [facility] GI Lab [address] [place] [phone] Jaya Grier MD [address] [place] [address] DR GAINES [address] [place] [phone] ESOPHAGOGASTRODUODENOSCOPY Scheduled Orders Name Type Priority Associated Diagnoses Orde r Schedule Protein / creatinine ratio, urine, random Lab Routine Type 2 DM with CKD and hypertension ([facility]/HCC) Expected: 10/22/2020, Expires: 09/12/2021 Comprehensive metabolic panel Lab Routine Stage 3a chronic kidney disease Expected: 10/22/2020, Expires: 09/12/2021 CBC with auto differential Lab Routine Anemia in stage 3a chronic kidney disease Expected: 10/22/2020, Expires: 09/12/2021 Iron profile w/ IBC Lab Routine Anemia in stage 3a chronic kidney disease Expected: 10/22/2020, Expires: 09/12/2021 Vitamin B12 and Folate Lab Routine Anemia in stage 3a chronic kidney disease Expected: 10/22/2020, Expires: 09/12/2021 PTH Lab Routine Stage 3a chronic kidney disease Expected: 10/22/2020, Expires: 09/12/2021 Scheduled Procedures Name Priority Associated Diagnoses Date/Ti nm ESOPHAGOGASTRODUODENOSCOPY Anemia, unspecified type Gastritis without bleeding, unspecified chronicity, unspecified gastritis type 07/13/2024 9:00 AM PREP COOK COLONOSCOPY Iron deficiency anemia due to chronic blood loss documented as of this encounter Visit Diagnoses Diagnosis Elevated serum creatinine- Primary Other nonspecific findings on examination of blood Uncontrolled type 2 diabetes mellitus with hyperglycemia (HCC) Stage 3a chronic kidney disease (HCC) Type 2 DM with CKD and hypertension Benign hypertensive kidney disease with chronic kidney disease stage I through stage IV, or unspecified(403.10) Benign hypertensive kidney disease with chronic kidney disease stage I through stage IV, or unspecified Anemia in stage 3a chronic kidney disease (HCC) Diabetic nephropathy (CMS/HCC) (HCC) Type II or unspecified type diabetes mellitus with renal manifestations, not stated as uncontrolled Anemia, unspecified type Gastritis without bleeding, unspecified chronicity, unspecified gastritis type documented in this encounter Discontinued Medications Medication Sig Discontinue Reason Start Date End Da te sodium chloride 0.9% injectionIndications:[facility] Infuse 10 mL into a venous catheter as needed for line care. Indications: line care 09/12/2020 documented as of this encounter Historical Medications * This list may reflect changes made after this encounter. multivitamin with minerals tablet Take 1 tablet by mouth daily 08/07/2022 added in this encounter Orders Outpatient Referral Count Last Ordered Date Fir st Ordered Date AMB REFERRAL TO NEPHROLOGY 1 09/12/2020 documented in this encounter Additional Health Concerns Infection Onset Date Last Indicated Resolved Time MRSA 01/06/2020 01/06/2020 02/06/2021 5:00 AM CDT documented as of this encounter Care Teams Tea Tree Farmer Relationship Specialty Start Date End Date Cherelle Corcoran MD PCP - General Family Medicine 08/30/19 Mark Queen MD Consulting Physician Infectious Diseases 01/10/20 documented as of this encounter
--- OUTSIDE RECORDS SUMMARY | 2024-07-04 04:19 | XMS_ITS | Encounter Summary ---
Author Organization [facility] Address [address] [facility] [address] [place] [address] Care Team Providers Care Crime Scene Examiner Name Role Phone Cherelle Corcoran MD Primary Care Pro vider Mark Queen MD Unavailable [phone] Encounter Details Date Type Department Care Team (Late st Contact Info) Description 07/26/2020 Telephone [facility] Primary Care [address] [facility] [address] [place] [phone] Natacha London MA Social History [...] on file Legal Sex Female 9:03 AM SECURITIES UNDERWRITER Gender Identity Female 02/08/2020 6:39 PM CDT Sexual Orientation Not on file documented as of this encounter Miscellaneous Notes * Telephone Encounter - Natacha London MA - 07/26/2020 1:07 PM CST Sent portal [facility] RITIES UNDERWRITER * Telephone Encounter - Natacha London MA - 07/26/2020 9:21 AM CST ----- Message from Cherelle Corcoran MD sent at 07/26/2020 6:34 AM SECURITIES UNDERWRITER ----- Please let daughter know that XR just shows arthritis. Plan for PHYSICAL THERAPY as discussed. Thanks RITIES UNDERWRITER documented in this encounter Plan of Treatment Upcoming Encounters Date Type Department Care Team (Latest Contact Info) Description 07/13/2024 9:00 AM SECURITIES UNDERWRITER Hospital Encounter [facility] GI Lab [address] [place] [id number] Jaya Grier MD [address] [place] [address] DR GAINES [address] [place] [address] 07/13/2024 9:00 AM SECURITIES UNDERWRITER - 07/13/2024 9:30 AM SECURITIES UNDERWRITER Surgery [facility] GI Lab [address] [place] [phone] Jaya Grier MD [address] [place] [address] DR GAINES [address] [place] [address] ESOPHAGOGASTRODUODENOSCOPY Scheduled Procedures Name Priority Associated Diagnoses Date/Ti fl ESOPHAGOGASTRODUODENOSCOPY Anemia, unspecified type Gastritis without bleeding, unspecified chronicity, unspecified gastritis type 07/13/2024 9:00 AM SECURITIES UNDERWRITER COLONOSCOPY Iron deficiency anemia due to chronic blood loss documented as of this encounter Visit Diagnoses Not on filedocumented in this encounter Additional Health Concerns Infection Onset Date Last Indicated Resolved Time MRSA 01/06/2020 01/06/2020 02/06/2021 5:00 AM CDT documented as of this encounter Care Teams Crime Scene Examiner Relationship Specialty Start Date End Date Cherelle Corcoran MD PCP - General Family Medicine 08/30/19 Mark Queen MD Consulting Physician Infectious Diseases 01/10/20 documented as of this encounter
--- OUTSIDE RECORDS SUMMARY | 2024-07-04 04:19 | XMS_ITS | Encounter Summary ---
Author Organization [facility] Address [address] [facility] [address] [place] [address] Care Team Providers Care Liquid Natural Gas Plant Operator Name Role Phone Cherelle Corcoran MD Primary Care Pro vider Mark Queen MD Unavailable [phone] Reason for Visit * Reason Comments Follow-up Pt in the office to follow up. Numbness Pt c/o numbness/ting ling in hands and fingers. Encounter Details Date Type Department Care Team (Latest Contact Info) Description 08/28/2020 11:30 AM LOAD TEST MECHANIC Office Visit [facility] Primary Care [address] [place] [phone] Cherelle Corcoran MD [address] [place] [phone] Uncontrolled type 2 diabetes mellitus with hyperglycemia (CMS/HCC) (Primary Dx); Hypertension associated with diabetes (CMS/HCC); Hyperlipidemia associated with type 2 diabetes mellitus (CMS/HCC); Other diabetic neurological complication associated with type 2 diabetes mellitus (CMS/HCC); Elevated brain natriuretic peptide (BNP) level; Tingling Social History Tobacco Use Types Packs/Day Years Used Date Smoking Tobacco: Never Smokeless Tobacco: Never Alcohol Use Standard Drinks/Week Comments Not Currently 0 (1 standard drink = 0.6 oz pur e alcohol) PHQ-2 Answer Date Recorded PHQ-2 Total Score 0 01/17/2020 Comments No Sex and Gender Information Value Date Recorded Sex Assigned at Not on file Legal Sex Female 9:03 AM LOAD TEST MECHANIC Gender Identity Female 02/08/2020 6:39 PM CDT Sexual Orientation Not on file documented as of this encounter Last Filed Vital Signs Vital Sign Reading Time Taken Comments Blood Pressure 126/74 08/28/2020 11:44 AM LOAD TEST MECHANIC Pulse 87 08/28/2020 11:44 AM LOAD TEST MECHANIC Temperature 36.9 ??C (98.4 ??F) 08/28/2020 11:[address] Respiratory Rate 16 08/28/2020 11:44 AM LOAD TEST MECHANIC Oxygen Saturation 99% 08/28/2020 11:44 AM LOAD TEST MECHANIC Inhaled Oxygen Concentration - - Weight 60.3 kg (133 lb) 08/28/2020 11:44 AM LOAD TEST MECHANIC Height 157.5 cm (5' 2 ) 08/28/2020 11:44 AM LOAD TEST MECHANIC Body Mass Index 24.33 08/28/2020 11:44 AM LOAD TEST MECHANIC documented in this encounter Ordered Prescriptions Prescription Sig Dispense Quantity Refills Last Filled Start Date End Date dulaglutide (TRULICITY) 3 mg/0.5 mL pen injectorIndications :Uncontrolled type 2 diabetes mellitus with hyperglycemia (HCC) Inject 0.5 mL (3 mg total) under the skin once a week 2 mL 08/28/2020 documented in this encounter Progress Notes * Cherelle Corcoran MD - 08/28/2020 11:30 AM CST Images from the original note were not included. Assessment/Plan: Assessment/Plan Diagnoses and all orders for this visit: Uncontrolled type 2 diabetes mellitus with hyperglycemia (CMS/HCC) (Primary) Assessment & Plan: DM Care Plan: Meds: Lantus - continue [...] Microalbumin - on ACEi - no recheck Orders: - POCT hemoglobin A1c - dulaglutide (TRULICITY) 3 mg/0.5 mL pen injector; Inject 0.5 mL (3 mg total) under the skin once a week Hypertension associated with diabetes ([facility]) Assessment & Plan: Blood pressure at goal Continue lisinopril Hyperlipidemia associated with type 2 diabetes mellitus ([facility]) Assessment & Plan: On atorvastatin Other diabetic neurological complication associated with type 2 diabetes mellitus ([facility]) Assessment & Plan: On gabapentin Elevated brain natriuretic peptide (BNP) level Comments: Has fu with cardiology Tingling Comments: Continue PT for L arm tingling and back pain Continue gabapentin for neuropathy in bilteral feet, management of bs as above F/u 1 month or sooner as needed if symptoms not improving or worsen. Strict return/ED precautions discussed. Subjective: Barbara Chakraborty is a 69 y.o. female here for follow up diabetes mellitus HPI Chief Complaint Patient presents with ??? Follow-up Pt in the office to follow up. ??? Numbness Pt c/o numbness/tingling in hands and fingers. Had thoracic XR with minimal OA changes at last visit Has done 1 visit with PHYSICAL THERAPY, needs to schedule next appointment Taking gabapentin intermittently Peripheral edema: elevated BNP, has appointment with cardiology 09/11, no swelling currently Diabetes mellitus Medications: 1.5mg trulicity weekly, 42 units lantus daily Fasting blood sugar: 180 this morning 2h post prandial blood sugar: daughter unsure if she is checking no hypoglycemia episodes Hypertension: on 10mg lisinopril Hyperlipidemia: on 20mg atorvastatin Review of Systems Constitutional: Negative for fever. HENT: Negative for sore throat. Respiratory: Negative for cough and shortness of breath. Gastrointestinal: Negative for diarrhea and vomiting. Musculoskeletal: Negative for myalgias. Skin: Negative for wound. Neurological: Positive for numbness. Objective: Vital signs were reviewed. Vitals: 08/28/20 1144 BP: 126/74 BP Location: Left arm Patient Position: Sitting Pulse: 87 Resp: 16 Temp: 36.9 ??C (98.4 ??F) TempSrc: Tympanic SpO2: 99% Weight: 60.3 kg (133 lb) Height: 157.5 cm (5' 2 ) Physical Exam Gen: NAD, comfortable, appears as stated age Eyes: no conjunctival injection, EOMI ENMT: external ears symmetric CV: Regular rate Pulm: no increased work of breathing Skin: no rashes or nodules, warm and dry MSK/Neuro: symmetric limb movement, R 4th toe s/p amputation, no open wounds on R foot, no peripheral edema on exam today Psych: alert and oriented to person/place Cherelle Corcoran MD TEST MECHANIC documented in this encounter Miscellaneous Notes * Assessment & Plan Note - Cherelle Corcoran MD - 08/28/2020 1:00 PM CSTAssociated Problem(s): Diabetic neuropathy (HCC) (Resolved 05/16/2024) On gabapentin TEST MECHANIC * Assessment & Plan Note - Cherelle Corcoran MD - 08/28/2020 12:12 PM CSTAssociated Problem(s): Mixed hyperlipidemia On atorvastatin TEST MECHANIC * Assessment & Plan Note - Cherelle Corcoran MD - 08/28/2020 12:12 PM CSTAssociated Problem(s): Primary hypertension Blood pressure at goal Continue lisinopril TEST MECHANIC * Assessment & Plan Note - Cherelle Corcoran MD - 08/28/2020 12:09 PM CSTAssociated Problem(s): Type 2 diabetes mellitus with diabetic neuropathy, with long-term current use of insulin (HCC) DM Care Plan: Meds: Lantus - continue [...] Microalbumin - on ACEi - no recheck TEST MECHANIC TEST MECHANIC documented in this encounter Plan of Treatment Upcoming Encounters Date Type Department Care Team (Latest Contact Info) Description 07/13/2024 9:00 AM LOAD TEST MECHANIC Hospital Encounter [facility] GI Lab [address] [place] [address] Jaya Grier MD [address] [place] [address] DR GAINES [address] [place] [phone] 07/13/2024 9:00 AM LOAD TEST MECHANIC - 07/13/2024 9:30 AM LOAD TEST MECHANIC Surgery [facility] GI Lab [address] [place] [address] Jaya Grier MD [facility] [facility] [address] [place] [address] ESOPHAGOGASTRODUODENOSCOPY Scheduled Procedures Name Priority Associated Diagnoses Date/Ti ky ESOPHAGOGASTRODUODENOSCOPY Anemia, unspecified type Gastritis without bleeding, unspecified chronicity, unspecified gastritis type 07/13/2024 9:00 AM LOAD TEST MECHANIC COLONOSCOPY Iron deficiency anemia due to chronic blood loss documented as of this encounter Procedures Procedure Name Priority Date/Time Associated Diagnosis Comments POCT HEMOGLOBIN A1C Routine 08/28/2020 1 2:18 PM LOAD TEST MECHANIC Uncontrolled type 2 diabetes mellitus with hyperglycemia (CMS/HCC) DIABETIC EYE EXAM Routine 06/11/2020 documented in this encounter Results * POCT hemoglobin A1c (08/28/2020 12:18 PM LOAD TEST MECHANIC) Hemoglobin A1C, POC 8.3 Capillary blood 08/28/2020 1 2:18 PM LOAD TEST MECHANIC Cherelle Corcoran MD POINT OF CARE GOMEZ T ORDERABLES Final Result * (ABNORMAL) Diabetic Eye Exam (06/11/2020) 06/11/2020 Historical Provider HEALTH MAINTENANCE Final Result documented in this encounter Visit Diagnoses Diagnosis Uncontrolled type 2 diabetes mellitus with hyperglycemia (HCC)- Primary Hypertension associated with diabetes (HCC) Unspecified essential hypertension Hyperlipidemia associated with type 2 diabetes mellitus (HCC) Other diabetic neurological complication associated with type 2 diabetes mellitus (HCC) Elevated brain natriuretic peptide (BNP) level Tingling Disturbance of skin sensation Anemia, unspecified type Gastritis without bleeding, unspecified chronicity, unspecified gastritis type documented in this encounter Discontinued Medications Medication Sig Discontinue Reason Start Date End Da te dulaglutide (TRULICITY) 1.5 mg/0.5 mL pen injectorIndications:Uncont rolled type 2 diabetes mellitus with hyperglycemia (HCC) Inject 0.5 mL (1.5 mg total) under the skin once a week 07/24/2020 08/28/2020 documented as of this encounter Additional Health Concerns Infection Onset Date Last Indicated Resolved Time MRSA 01/06/2020 01/06/2020 02/06/2021 5:00 AM CDT documented as of this encounter Care Teams Liquid Natural Gas Plant Operator Relationship Specialty Start Date End Date Cherelle Corcoran MD PCP - General Family Medicine 08/30/19 Mark Queen MD Consulting Physician Infectious Diseases 01/10/20 documented as of this encounter
--- OUTSIDE RECORDS SUMMARY | 2024-07-04 04:19 | XMS_ITS | Encounter Summary ---
Author Organization [facility] Address [address] [place] [address] Care Team Providers Care Ui Designer Name Role Phone Cherelle Corcoran MD Primary Care Pro vider Mark Queen MD Unavailable [phone] Reason for Visit * Reason Comments Follow-up Pt in the office for 4 week follow up. Nasal Congestion Pt c/o nasal congest ion and productive cough x2 days. Encounter Details Date Type Department Care Team (Latest Contact Info) Description 12/10/2020 3:45 PM CDT Office Visit [facility] Primary Care [address] [place] [phone] Cherelle Corcoran MD [address] [place] [phone] Cough (Primary Dx); Uncontrolled type 2 diabetes mellitus with hyperglycemia (CMS/HCC); Hypertension associated with diabetes (CMS/HCC); Hyperlipidemia associated with type 2 diabetes mellitus (CMS/HCC); Other diabetic neurological complication associated with type 2 diabetes mellitus (CMS/HCC); Stage 3b chronic kidney disease Social History Tobacco Use Types Packs/Day Years Used Date Smoking Tobacco: Never Smokeless Tobacco: Never Alcohol Use Standard Drinks/Week Comments Not Currently 0 (1 standard drink = 0.6 oz pur e alcohol) PHQ-2 Answer Date Recorded PHQ-2 Total Score 0 01/17/2020 Comments No Sex and Gender Information Value Date Recorded Sex Assigned at Not on file Legal Sex Female 9:03 AM DISPATCHER SERVICE Gender Identity Female 02/08/2020 6:39 PM CDT Sexual Orientation Not on file documented as of this encounter Last Filed Vital Signs Vital Sign Reading Time Taken Comments Blood Pressure 132/80 12/10/2020 3:51 PM CDT Pulse 85 12/10/2020 3:51 PM CDT Temperature 36.9 ??C (98.5 ??F) 12/10/2020 3:51 PM CD T Respiratory Rate 16 12/10/2020 3:51 PM CDT Oxygen Saturation 97% 12/10/2020 3:51 PM CDT Inhaled Oxygen Concentration - - Weight 62.1 kg (137 lb) 12/10/2020 3:51 PM CDT Height 157.5 cm (5' 2 ) 12/10/2020 3:51 PM CDT Body Mass Index 25.06 12/10/2020 3:51 PM CDT documented in this encounter Patient Instructions * Patient Instructions* Cherelle Corcoran MD - 12/10/2020 3:45 PM CDT Images from the original note were not included. Patient Education Hypoglycemia in a Person with Diabetes DIGITAL COMPUTER SYSTEMS ANALYST: Hypoglycemia is a serious condition that happens [...] ask them during your visits. ?? 2017 [employer] Information is for End User's use only and may not be sold, redistributed or otherwise used for commercial purposes. All illustrations and images included in CareNotes?? are the copyrighted property of [employer] or [employer]. The above information is an corrective therapy aide only. It is not intended as medical advice for individual conditions or treatments. Talk to your doctor, nurse or pharmacist before following any medical regimen to see if it is safe and effective for you. documented in this encounter Progress Notes * Cherelle Corcoran MD - 12/10/2020 3:45 PM CDT Images from the original note were not included. Assessment/Plan: Assessment/Plan Diagnoses and all orders for this visit: Cough (Primary) Comments: AFVSS No evidence of AOM, sinusitis or pna Advise COVID testing, if negative treat for allergic rhinitis Orders: - Request for Ambulatory Collection Site Testing - Adult; Future Uncontrolled type 2 diabetes mellitus with hyperglycemia ([facility]) Comments: A1c improved to 7.5! Continue 3mg trulicity qweekly, 47 units lantus daily & 10 units jardiance daily Discussed hypoglycemia precautions Orders: - POCT hemoglobin A1c Hypertension associated with diabetes ([facility]) Comments: BP at goal Continue 10mg lisinopril Hyperlipidemia associated with type 2 diabetes mellitus ([facility]) Comments: Continue 40mg atorvastatin Other diabetic neurological complication associated with type 2 diabetes mellitus ([facility]) Comments: Continue 400mg gabapentin TID Stage 3b chronic kidney disease Comments: Following with nephro F/u 1 month for AWV or sooner as needed if symptoms not improving or worsen. Strict return/ED precautions discussed. Subjective: Barbara Chakraborty is a 70 y.o. female here for follow up diabetes mellitus & other chronic conditions HPI Chief Complaint Patient presents with ??? Follow-up Pt in the office for 4 week follow up. ??? Nasal Congestion Pt c/o nasal congestion and productive cough x2 days. daughter states it has been closer to a week Has been vaccinated for covid Diabetes mellitus Medications:??3mg trulicity weekly, 47 units lantus daily, 10mg jardiance no??hypoglycemia episodes ?? Neuropathy: taking 400mg gabapentin TID CKD: seeing nephro?? Hypertension: on 10mg lisinopril Hyperlipidemia: on??40mg atorvastatin GERD: stable on prilosec Review of Systems Constitutional: Negative for fever. HENT: Positive for congestion. Respiratory: Positive for cough. Negative for shortness of breath. Objective: Vital signs were reviewed. Vitals: 12/10/20 1551 BP: 132/80 BP Location: Right arm Patient Position: Sitting Pulse: 85 Resp: 16 Temp: 36.9 ??C (98.5 ??F) TempSrc: Tympanic SpO2: 97% Weight: 62.1 kg (137 lb) Height: 157.5 cm (5' 2 ) Physical Exam Gen: NAD, comfortable, appears as stated age Eyes: no conjunctival injection, EOMI ENMT: external ears symmetric, bilateral tympanic membranes within normal limits, no TTP sinuses CV: Regular rate and rhythm, no murmurs, [...] (Latest Contact Info) Description 07/13/2024 9:00 AM DISPATCHER SERVICE Hospital Encounter [facility] [address] [place] [address] Jaya Grier MD [address] [place] [address] DR GAINES [address] [place] [phone] 07/13/2024 9:00 AM DISPATCHER SERVICE - 07/13/2024 9:30 AM DISPATCHER SERVICE Surgery [facility] [address] [place] [address] Jaya Grier MD [facility] [address] GAINES [address] [place] [id number] ESOPHAGOGASTRODUODENOSCOPY Scheduled Procedures Name Priority Associated Diagnoses Date/Ti la ESOPHAGOGASTRODUODENOSCOPY Anemia, unspecified type Gastritis without bleeding, unspecified chronicity, unspecified gastritis type 07/13/2024 9:00 AM DISPATCHER SERVICE COLONOSCOPY Iron deficiency anemia due to chronic blood loss documented as of this encounter Procedures Procedure Name Priority Date/Time Associated Diagnosis Comments POCT HEMOGLOBIN A1C Routine 12/10/2020 4 :02 PM CDT Uncontrolled type 2 diabetes mellitus with hyperglycemia (CMS/HCC) documented in this encounter Results * POCT hemoglobin A1c (12/10/2020 4:02 PM CDT) Hemoglobin A1C, POC 7.5 Capillary blood 12/10/2020 4 :02 PM CDT Cherelle Corcoran MD POINT OF CARE GOMEZ T ORDERABLES Final Result documented in this encounter Visit Diagnoses Diagnosis Cough- Primary Uncontrolled type 2 diabetes mellitus with hyperglycemia (HCC) Hypertension associated with diabetes (HCC) Unspecified essential hypertension Hyperlipidemia associated with type 2 diabetes mellitus (HCC) Other diabetic neurological complication associated with type 2 diabetes mellitus (HCC) Stage 3b chronic kidney disease (HCC) Anemia, unspecified type Gastritis without bleeding, unspecified chronicity, unspecified gastritis type documented in this encounter Discontinued Medications Medication Sig Discontinue Reason Start Date End Da te meclizine (ANTIVERT) 25 mg tablet TK 1 T PO TID PRF DIZZINESS Therapy completed 03/25/2020 12/10/2020 documented as of this encounter Additional Health Concerns Infection Onset Date Last Indicated Resolved Time MRSA 01/06/2020 01/06/2020 02/06/2021 5:00 AM CDT COVID: Suspected 12/10/2020 12/10/2020 12/24/2020 3:05 AM CDT documented as of this encounter Care Teams Ui Designer Relationship Specialty Start Date End Date Cherelle Corcoran MD PCP - General Family Medicine 08/30/19 Mark Queen MD Consulting Physician Infectious Diseases 01/10/20 documented as of this encounter
--- OUTSIDE RECORDS SUMMARY | 2024-07-04 04:19 | XMS_ITS | Encounter Summary ---
Author Organization [facility] Address [address] [place] [address] Care Team Providers Care Stucco Mason Name Role Phone Cherelle Corcoran MD Primary Care Pro vider Mark Queen MD Unavailable [phone] Encounter Details Date Type Department Care Team (Late st Contact Info) Description 11/20/2020 Orders Only [facility] Behavioral Health [id number] [phone] [place] [address] [address] Social History Tobacco Use Types Packs/Day Years Used Date Smoking Tobacco: Never Smokeless Tobacco: Never Alcohol Use Standard Drinks/Week Comments Not Currently 0 (1 standard drink = 0.6 oz pur e alcohol) PHQ-2 Answer Date Recorded PHQ-2 Total Score 0 01/17/2020 Comments No Sex and Gender Information Value Date Recorded Sex Assigned at Not on file Legal Sex Female 9:03 AM QA DEVELOPER Gender Identity Female 02/08/2020 6:39 PM CDT Sexual Orientation Not on file documented as of this encounter Ordered Prescriptions Prescription Sig Dispense Quantity Refills Last Filled Start Date End Date risperiDONE (RisperDAL) 2 mg tablet Take 1 tablet (2 mg total) by mouth nightly 30 tablet 3 11/20/2020 2 documented in this encounter Plan of Treatment Upcoming Encounters Date Type Department Care Team (Latest Contact Info) Description 07/13/2024 9:00 AM QA DEVELOPER Hospital Encounter [facility] [address] [place] [address] [place] [address] [place] [address] DR GAINES [address] [place] [address] 07/13/2024 9:00 AM QA DEVELOPER - 07/13/2024 9:30 AM QA DEVELOPER Surgery [facility] [address] [place] [address] Jaya Grier MD [facility] [address] [place] [address] ESOPHAGOGASTRODUODENOSCOPY Scheduled Procedures Name Priority Associated Diagnoses Date/Ti me ESOPHAGOGASTRODUODENOSCOPY Anemia, unspecified type Gastritis without bleeding, unspecified chronicity, unspecified gastritis type 07/13/2024 9:00 AM QA DEVELOPER COLONOSCOPY Iron deficiency anemia due to chronic blood loss documented as of this encounter Visit Diagnoses Not on filedocumented in this encounter Discontinued Medications Medication Sig Discontinue Reason Start Date End Da te risperiDONE (RisperDAL) 2 mg tablet Take 1 tablet (2 mg total) by mouth nightly Reorder 10/10/2020 11/20/2020 documented as of this encounter Additional Health Concerns Infection Onset Date Last Indicated Resolved Time MRSA 01/06/2020 01/06/2020 02/06/2021 5:00 AM CDT documented as of this encounter Care Teams Stucco Mason Relationship Specialty Start Date End Date Cherelle Corcoran MD PCP - General Family Medicine 08/30/19 Mark Queen MD Consulting Physician Infectious Diseases 01/10/20 documented as of this encounter
--- OUTSIDE RECORDS SUMMARY | 2024-07-04 04:19 | XMS_ITS | Encounter Summary ---
Author Organization [facility] Address [address] [place] [address] Care Team Providers Care Underground Production Foreperson Name Role Phone Cherelle Corcoran MD Primary Care Pro vider Mark Queen MD Unavailable [phone] Reason for Visit * Reason Comments PT Initial Eval * Consultation (Routine) - Closed Specialty Diagnoses / Procedures Referred By Maryse lama Referred To Contact Physical Therapy Diagnoses Chronic left shoulder pain Cherelle Corcoran MD Phone: tel: fax: [facility] [address] [place] [address] Referral ID Status Reason Start Date Expiration Date V isits Requested Visits Authorized [id number] Closed Specialty Services Required 11/13/2020 12/13/2021 24 24 Encounter Details Date Type Department Care Team (Late st Contact Info) Description 12/18/2020 7:45 AM CDT Therapy [facility] Medical Office Bldg 1 OP Physical Therapy [address] [place] [phone] Santo Inman, PT Chronic left shoulder pain (Primary Dx) [...] on file Legal Sex Female 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 PT Initial Evaluation 12/18/2020 Barbara Chakraborty 1950 70 y.o. female Cherelle Corcoran MD [address] [place] [id number] ICD-9-CM ICD-10-CM 1. Chronic left shoulder pain 719.41 M25.512 Ambulatory referral order to Physical Therapy - 338.29 G89.29 Past Medical History: Diagnosis Date ??? Arthritis ??? Depression ??? Diabetic neuropathy (CMS/HCC) ??? Hyperlipidemia ??? Hypertension ??? Schizophrenia (CMS/HCC) ??? Type 2 diabetes mellitus (CMS/HCC) Past Surgical History: Procedure Laterality Date ??? SECTION Right right foot ??? TOE AMPUTATION Right 01/06/2020 4th toe amp/ foot debridement/ Dr. Anat Pelayo Precautions: none Subjective: History of Present Condition Surgical Patient: no Description of Onset: pain mostly described when sleeping for about the past year. No known injury Diagnostic Tests: none Previous Treatment: none Symptoms Pt reports Symptoms present mostly when sleeping and symptoms have been present for about 1 year. Symptoms described across the top of the shoulder. Symptoms present when sleeping and also when reaching up or overhead or out to the side. Current pain ratin/10 At best pain ratin/10 At worst pain ratin/10 Exacerbating Factors: reaching, lifting, sleeping Relieving Factors: taking medicine, OTC NSAIDS Function Current Functional Deficits: sleeping, reaching, doing housework Prior Level of Function: Independent with activities of daily living including household and community activities, driving, and all work-related responsibilities. 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 150 deg. Abduction 133 deg. 135 deg. External rotation Limited to occiput C2 Internal rotation lumbar lumbar Strength right left Shoulder Flexion 4/5 4+/5 Extension 4/5 4+/5 Abduction 4 /5 4+/5 External rotation 4/5 4+/5 Internal rotation 4/5 4+/5 Middle trapezius 3/5 3/5 Lower trapezius 3/5 3/5 Serratus anterior 4-/5 4-/5 Special Tests Rhoades-Herman positive Empty Can negative Lift Off negative Drop Arm negative Neer's positive Posture: slight increased thoracic kyphosis, bilat humeral IR at rest Palpation: TTP R rhomboids, middle trap, supraspinatus and infraspinatus, Joint mobility: stiffness in R shoulder at end ranges overhead Scapulohumeral Rhythm: decreased scapular upward rotation with shoulder flexion/abduction Sensory: numbness in bilat hands/fingers SPADI: 33/130 Assessment: Patient requires additional skilled therapy services for strengthening, ROM, scapular/humeral rhythm training, modalities, and manual therapy and for return to prior level of function. Rehab potential: good Short-Term Goals: to be met by 01/29/21 [...] lbs from the floor without increased symptoms. Patient Goal: decreased pain when doing activities at home and when sleeping. Plan: Patient will benefit from skilled therapy services 2-3 times per week for 6 weeks. Treatment may include: therapeutic exercise, manual therapy and modalities as needed. patient educated and acknowledged understanding of therapy diagnosis, prognosis, pain relief instructions, precautions, risks, benefits and discharge plan and agree with the treatment plan and goals. Santo Inman PT [facility] * Santo Inman, PT - 12/18/2020 7:45 AM CDT Precautions: none Date Date Date Date Date 12/18/20 Visit Number 1 Exercises/Treatment UBE 4 min F/B bilat wall slides 1 x 10 Theraband Rows Shoulder extension red 1 x 10 1 x 10 sidelying shoulder ER Shoulder PROM Supine shoulder flexion Prone shoulder ext IFC - R shoulder/scapula Goals: Short-Term Goals: to be met by [...] lbs from the floor without increased symptoms. 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 Surgery [facility] [address] [place] [address] Jaya Grier MD [address] [facility] [address] GAINES [address] [place] [id number] ESOPHAGOGASTRODUODENOSCOPY Scheduled Procedures Name Priority Associated Diagnoses Date/Ti me ESOPHAGOGASTRODUODENOSCOPY Anemia, unspecified type Gastritis without bleeding, unspecified chronicity, unspecified gastritis type 07/13/2024 9:00 AM 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
--- OUTSIDE RECORDS SUMMARY | 2024-07-04 04:19 | XMS_ITS | Encounter Summary ---
Author Organization [facility] Address [address] [place] [address] Care Team Providers Care Recreation Supervisor Name Role Phone Cherelle Corcoran MD Primary Care Pro vider Mark Queen MD Unavailable [phone] Reason for Visit * Reason Comments Initial Psychiatric Evaluation Encounter Details Date Type Department Care Team (Latest Contact Info) Description 10/10/2020 10:30 AM CDT Telemedicine [facility] Behavioral Health [id number] [id number] Adryan Swenson [place] [id number] [place] [id number] Encounter for psychiatric assessment (Primary Dx); Dementia (CMS/HCC); Schizoaffective disorder, bipolar type (CMS/HCC); Uncontrolled type 2 diabetes mellitus with hyperglycemia ([facility]/HCC); Vitamin D deficiency Social History Tobacco Use [...] file Legal Sex Female 9:03 AM METAL OR WOOD BLOCKER Gender Identity Female 02/08/2020 6:39 PM CDT Sexual Orientation Not on file documented as of this encounter Ordered Prescriptions Prescription Sig Dispense Quantity Refills Last Filled Start Date End Date risperiDONE (RisperDAL) 2 mg tablet Take 1 tablet (2 mg total) by mouth nightly 30 tablet 3 10/10/2020 documented in this encounter Progress Notes * Adryan Swenson MD - 10/10/2020 10:30 AM CDT Images from the original note were not included. This was a telemedicine visit with Barbara Chakraborty alone which took place via real- time video connection with Zoom. During the visit, I was located at home in [place], [place], and the patient was located at home in the [facility]. Time started: 10:30 am Time ended: 11:30 am My total encounter time on 10/10/2020 was 60 minutes which was spent in [...] a telephone or video visit during the [facility]- public health emergency to the patient. After [...] all orders for this visit: Encounter for psychiatric assessment (Primary) Assessment & Plan: Psychiatric assessment was completed during the appointment today. All the paperwork completed by the patient was reviewed by me with the patient. All of the questions posed to me by the patient were answered. A treatment plan was developed in line with the information presented to me. Refer to specific problems for additional information regarding assessment and treatment recommendations. Dementia (CMS/HCC) Assessment & Plan: Not currently on any medications. Alert. Check lab work. Re-evaluate in 1 month. MMSE at that time. Orders: - Vitamin B12; Future - TSH reflex to free T4; Future - Folate; Future - CRP (acute phase); Future - Erythrocyte sedimentation rate; Future Schizoaffective disorder, bipolar type ([facility]/HCC) Assessment & Plan: Chronic condition, has not been treated for [...] Reviewed all of those notes-primary care doctor, bit and shank department supervisor, cath lab radiology technician. The patient previously lived on her own and was observed to be hoarding. See additional problems-dementia. Evaluate again in 1 month after starting Risperdal. Uncontrolled type 2 diabetes mellitus with hyperglycemia ([facility]) Assessment & Plan: Check A1c. Needs better management. Vitamin D deficiency - Vitamin D 25 hydroxy; Future Other orders - risperiDONE (RisperDAL) 2 mg tablet; Take 1 tablet (2 mg total) by mouth nightly The patient [...] COMPLAINT Chief Complaint Patient presents with ??? Initial Psychiatric Evaluation HISTORY OF PRESENT ILLNESS 70 y.o. female [...] syringe with needle, insulin (INSULIN SYRINGE-NEEDLE U-100 [facility]) 3 times a day No current facility-administered medications for this visit. Adherence to medication reported by the patient to be 100% The patient denies side effects possiblyrelated to these medications. Current issues reported by the patient: Initial appointment Daughter provides information regarding the patient. ???Mental illness, loss of memory-cognitive impairment, balance/coordination?? Symptoms include the following: Depressed mood Sleep pattern disturbance Concentration difficulties Change in appetite Racing thoughts Impulsive behavior Excessive worry Suspiciousness Hallucinations Past psychiatric history-denies any history of suicide attempt Denies any active suicidal ideation No current psychotropic medications. Associated poorly controlled diabetes. Only previous psychiatric [id number] or 1997. Records unavailable to me at [...] Denies any nicotine or cigarettes. Born in [place]. Father was reeves and alcoholic. Positive relationship [...] gets in her moods She worked in [employer] at [employer] and [employer] - daughter - provides collateral information. The patient does not report any increased use of alcohol. The patient does not report any use of illicit drugs. REVIEW OF SYSTEMS Review of Systems Unable to perform ROS: Dementia PHYSICAL EXAM Physical Exam Constitutional: Appearance: Normal appearance. HENT: Head: Normocephalic. Nose: Nose normal. Eyes: [...] (CMS/HCC) ??? Type 2 diabetes mellitus (CMS/HCC) PAST SURGICAL HISTORY Past Surgical History: Procedure [...] LABS Lab Results Component Value Date WBC 7.6 05/28/2020 HGB 10.8 (L) 05/28/2020 HCT 34.3 (L) 05/28/2020 MCV 90.5 05/28/2020 RDWSD 56.7 (H) 02/13/2020 LABPLAT 316 05/28/2020 Lab Results Component Value Date ALT 7 07/24/2020 AST 17 07/24/2020 ALKPHOS 118 (H) 07/24/2020 BILITOT <0.2 07/24/2020 ALBUMIN 3.6 07/24/2020 Lab Results Component Value Date SODIUM 140 07/24/2020 POTASSIUM 4.5 07/24/2020 CO2 31 07/24/2020 BUNSER 24 02/13/2020 GLUCOSE 178 (H) 07/24/2020 CREATININE 1.5 (H) 07/24/2020 CHLORIDE 100 07/24/2020 CALCIUM 9.7 07/24/2020 PROTEIN 7.6 01/19/2017 Office Visit on 10/02/2020 Component Date Value [...] 118* ??? Hemoglobin A1c % 07/24/2020 8.0* Orders Only on 06/01/2020 Component Date Value ??? PTH Intact 07/24/2020 50 Office Visit on 05/28/2020 Component Date Value ??? Hep C Ab 05/28/2020 NONREACT ??? Sodium 05/28/2020 142 ??? Potassium 05/28/2020 4.9 ??? Chloride 05/28/2020 104 ??? Carbon Dioxide 05/28/2020 29 ??? Anion Gap 05/28/2020 9 ??? Glucose 05/28/2020 149* ??? BUN 05/28/2020 23 ??? Creatinine 05/28/2020 1.0 ??? Kidney Disease Stage 05/28/2020 71 ??? Calcium 05/28/2020 10.8* ??? Total Protein 05/28/2020 8.1 ??? Albumin 05/28/2020 4.2 ??? Globulin 05/28/2020 3.9* ??? Albumin/Globulin Ratio 05/28/2020 1.1 ??? Total Bilirubin 05/28/2020 0.2 ??? AST 05/28/2020 20 ??? ALT 05/28/2020 12 ??? Alkaline Phosphatase 05/28/2020 129* ??? Hemoglobin A1c % 05/28/2020 8.5* ??? WBC 05/28/2020 7.6 ??? RBC 05/28/2020 3.79* ??? Hemoglobin 05/28/2020 10.8* ??? Hct 05/28/2020 34.3* ??? MCV 05/28/2020 90.5 ??? MCH 05/28/2020 28.5 ??? MCHC 05/28/2020 31.5* ??? RDW 05/28/2020 16.1* ??? Plt Count 05/28/2020 316 ??? MPV 05/28/2020 10.8 ??? Neut % 05/28/2020 52.5 ??? Immature Gran % 05/28/2020 0.3 ??? Lymph % 05/28/2020 38.3 ??? [place] % 05/28/2020 6.7 ??? Eos % 05/28/2020 1.7 ??? AUTO BASO % 05/28/2020 0.5 ??? NEUTROPHIL ABS # 05/28/2020 4.0 ??? Immature Gran # 05/28/2020 0.0 ??? Absolute Lymphs (auto) 05/28/2020 2.9 ??? Absolute Monos (auto) 05/28/2020 0.5 ??? Absolute Eos (auto) 05/28/2020 0.1 ??? BASOPHIL ABS # 05/28/2020 0.0 ??? Nucleat RBC Rel Count 05/28/2020 0.0 ??? NRBC abs 05/28/2020 0.00 ??? Absolute Neutrophils 05/28/2020 4,000 Office Visit on 04/02/2020 Component Date Value ??? WBC 04/02/2020 9.6 ??? RBC 04/02/2020 4.13 ??? Hemoglobin 04/02/2020 11.5* ??? Hct 04/02/2020 36.4 ??? MCV 04/02/2020 88.1 ??? MCH 04/02/2020 27.8 ??? MCHC 04/02/2020 31.6* ??? RDW 04/02/2020 16.6* ??? Plt Count 04/02/2020 296 ??? MPV 04/02/2020 10.0 ??? Neut % 04/02/2020 57.8 ??? Immature Gran % 04/02/2020 0.2 ??? Lymph % 04/02/2020 35.6 ??? L[place]kin % 04/02/2020 5.1 ??? Eos % 04/02/2020 0.8 ??? AUTO BASO % 04/02/2020 0.5 ??? NEUTROPHIL ABS # 04/02/2020 5.6 ??? Immature Gran # 04/02/2020 0.0 ??? Absolute Lymphs (auto) 04/02/2020 3.4* ??? Absolute Monos (auto) 04/02/2020 0.5 ??? Absolute Eos (auto) 04/02/2020 0.1 ??? BASOPHIL ABS # 04/02/2020 0.1 ??? Nucleat RBC Rel Count 04/02/2020 0.0 ??? NRBC abs 04/02/2020 0.00 ??? Absolute Neutrophils 04/02/2020 5,600 ??? Iron 04/02/2020 79 ??? TIBC 04/02/2020 247 ??? Transferrin % Sat 04/02/2020 32 ??? Iron 04/02/2020 79 ??? TIBC 04/02/2020 247 ??? Transferrin % Sat 04/02/2020 32 ??? Sodium 04/02/2020 142 ??? Potassium 04/02/2020 4.8 ??? Chloride 04/02/2020 104 ??? Carbon Dioxide 04/02/2020 24 ??? Anion Gap 04/02/2020 14 ??? Glucose 04/02/2020 184* ??? BUN 04/02/2020 25 ??? Creatinine 04/02/2020 1.1 ??? Kidney Disease Stage 04/02/2020 63 ??? Calcium 04/02/2020 10.8* ??? Total Protein 04/02/2020 8.5* ??? Albumin 04/02/2020 4.0 ??? Globulin 04/02/2020 4.5* ??? Albumin/Globulin Ratio 04/02/2020 0.9* ??? Total Bilirubin 04/02/2020 0.3 ??? AST 04/02/2020 15 ??? ALT 04/02/2020 12 ??? Alkaline Phosphatase 04/02/2020 132* ??? Triglycerides 04/02/2020 123 ??? Cholesterol 04/02/2020 211* ??? HDL Cholesterol 04/02/2020 51 ??? LDL Cholesterol, Calc 04/02/2020 135* ??? Cholesterol/HDL Ratio 04/02/2020 4.1 ??? Hemoglobin A1c % 04/02/2020 9.3* Lab on 02/13/2020 Component Date Value ??? Sodium 02/13/2020 143 ??? Potassium, pl 02/13/2020 3.5 ??? Chloride 02/13/2020 105 ??? CO2 02/13/2020 28 ??? Anion gap 02/13/2020 9 ??? BUN 02/13/2020 24 ??? Creatinine 02/13/2020 1.23* ??? Glucose 02/13/2020 282* ??? Calcium 02/13/2020 9.7 ? ? Bilirubin, total 02/13/2020 <0.2 ??? Protein, pl 02/13/2020 7.3 ??? Albumin 02/13/2020 3.4* ??? Alk phos 02/13/2020 258* ??? ALT 02/13/2020 29 ??? AST 02/13/2020 30 ??? WBC 02/13/2020 8.9 ??? Hgb 02/13/2020 9.3* ??? Hct 02/13/2020 30.8* ??? Plt 02/13/2020 318 ??? MPV 02/13/2020 11.3 ??? RBC 02/13/2020 3.32* ??? MCV 02/13/2020 92.8 ??? MCH 02/13/2020 28.0 ??? MCHC 02/13/2020 30.2* ??? RDW CV 02/13/2020 16.6* ??? RDW SD 02/13/2020 56.7* ??? NRBC abs 02/13/2020 0.00 ??? Erythrocyte sedimentatio* 02/13/2020 70* ??? Vancomycin trough 02/13/2020 16.0 ??? Neutrophil abs 02/13/2020 6.5 ??? Imm gran abs 02/13/2020 0.0 ??? Lymphocyte abs 02/13/2020 1.6 ??? Monocyte abs 02/13/2020 0.5 ??? Eosinophil abs 02/13/2020 0.2 ??? Basophil abs 02/13/2020 0.1 ??? Neutrophil pct 02/13/2020 73.3 ??? Imm gran pct 02/13/2020 0.2 ??? Lymphocyte pct 02/13/2020 17.4 ??? Monocyte pct 02/13/2020 5.9 ??? Eosinophil pct 02/13/2020 2.6 ??? Basophil pct 02/13/2020 0.6 ??? GFR 02/13/2020 45 Lab on 02/11/2020 Component Date Value ??? Vancomycin trough 02/11/2020 14.7* Lab on 02/09/2020 Component Date Value ??? Sodium 02/09/2020 141 ??? Potassium, pl 02/09/2020 3.3 ??? Chloride 02/09/2020 103 ??? CO2 02/09/2020 29 ??? Anion gap 02/09/2020 11 ??? BUN 02/09/2020 25 ??? Creatinine 02/09/2020 1.12* ??? Glucose 02/09/2020 235* ??? Calcium 02/09/2020 9.0 ??? WBC 02/09/2020 13.7* ??? Hgb 02/09/2020 11.2* ??? Hct 02/09/2020 35.1* ??? Plt 02/09/2020 317 ??? MPV 02/09/2020 10.5 ??? RBC 02/09/2020 3.91 ??? MCV 02/09/2020 89.8 ??? MCH 02/09/2020 28.6 ??? MCHC 02/09/2020 31.9* ??? RDW CV 02/09/2020 16.5* ??? RDW SD 02/09/2020 53.3* ??? NRBC abs 02/09/2020 0.00 ? ? Vancomycin trough 02/09/2020 <4.0* ??? Neutrophil abs 02/09/2020 11.0* ??? Imm gran abs 02/09/2020 0.1 ??? Lymphocyte abs 02/09/2020 1.9 ??? Monocyte abs 02/09/2020 0.6 ??? Eosinophil abs 02/09/2020 0.0 ??? Basophil abs 02/09/2020 0.0 ??? Neutrophil pct 02/09/2020 80.5 ??? Imm gran pct 02/09/2020 0.4 ??? Lymphocyte pct 02/09/2020 13.9 ??? Monocyte pct 02/09/2020 4.7 ??? Eosinophil pct 02/09/2020 0.2 ??? Basophil pct 02/09/2020 0.3 ??? GFR 02/09/2020 50 Lab on 02/06/2020 Component Date Value ??? Sodium 02/06/2020 143 ??? Potassium, pl 02/06/2020 4.1 ??? Chloride 02/06/2020 106 ??? CO2 02/06/2020 26 ??? Anion gap 02/06/2020 10 ??? BUN 02/06/2020 21 ??? Creatinine 02/06/2020 1.15* ??? Glucose 02/06/2020 209* ??? Calcium 02/06/2020 9.3 ??? Bilirubin, total 02/06/2020 0.3 ??? Protein, pl 02/06/2020 8.1 ??? Albumin 02/06/2020 3.3* ??? Alk phos 02/06/2020 280* ??? ALT 02/06/2020 33 ??? AST 02/06/2020 33 ??? WBC 02/06/2020 8.4 ??? Hgb 02/06/2020 8.6* ??? Hct 02/06/2020 28.0* ??? Plt 02/06/2020 307 ??? MPV 02/06/2020 10.9 ??? RBC 02/06/2020 3.05* ??? MCV 02/06/2020 91.8 ??? MCH 02/06/2020 28.2 ??? MCHC 02/06/2020 30.7* ??? RDW CV 02/06/2020 16.1* ??? RDW SD 02/06/2020 53.5* ??? NRBC abs 02/06/2020 0.00 ??? Erythrocyte sedimentatio* 02/06/2020 106* ??? Vancomycin trough 02/06/2020 16.1 ??? Neutrophil abs 02/06/2020 6.2 ??? Imm gran abs 02/06/2020 0.0 ??? Lymphocyte abs 02/06/2020 1.4 ??? Monocyte abs 02/06/2020 0.5 ??? Eosinophil abs 02/06/2020 0.3 ??? Basophil abs 02/06/2020 0.0 ??? Neutrophil pct 02/06/2020 73.4 ??? Imm gran pct 02/06/2020 0.4 ??? Lymphocyte pct 02/06/2020 16.3 ??? Monocyte pct 02/06/2020 6.2 ??? Eosinophil pct 02/06/2020 3.2 ??? Basophil pct 02/06/2020 0.5 ??? GFR 02/06/2020 49 There may be more visits with results that are not included. Adryan Swenson MD [facility] Office: documented in this encounter Miscellaneous Notes * Assessment & Plan Note - Adryan Swenson MD - 11/20/2020 11:54 AM CDT Associated Problem(s): Type 2 diabetes mellitus with diabetic neuropathy, with long-term current use of insulin (HCC) Check A1c. Needs better management. * Assessment & Plan Note - Adryan Swenson MD - 11/20/2020 11:53 AM CDT Associated Problem(s): Dementia (HCC) (Deleted) Not currently on any medications. Alert. Check lab work. Re-evaluate in 1 month. MMSE at that time. 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 The patient previously lived on her own and was observed to be hoarding. See additional problems-dementia. Evaluate again in 1 month after starting Risperdal. * Assessment & Plan Note - Adryan Swenson MD - 10/10/2020 11:47 AM CDT Associated Problem(s): Encounter for psychiatric assessment (Deleted) Psychiatric assessment was completed during the appointment today. All the paperwork completed by the patient was reviewed by me with the patient. All of the questions posed to me by the patient were answered. A treatment plan was developed in line with the information presented to me. Refer to specific problems for additional information regarding assessment and treatment recommendations. * Addendum Note - Laura Nelson - 10/10/2020 10:30 AM CDTAddended by: LAURA NELSON on: 02/07/2021 05:13 PM Modules accepted: Orders * Addendum Note - Laura Nelson - 10/10/2020 10:30 AM CDTAddended by: LAURA NELSON on: 02/07/2021 05:13 PM Modules accepted: Orders * Addendum Note - Laura Nelson - 10/10/2020 10:30 AM CDTAddended by: LAURA NELSON on: 02/07/2021 05:14 PM Modules accepted: Orders * Addendum Note - Laura Nelson - 10/10/2020 10:30 AM CDTAddended by: LAURA NELSON on: 02/07/2021 05:14 PM Modules accepted: Orders documented in this encounter Plan of Treatment Upcoming Encounters Date Type Department Care Team (Latest Contact Info) Description 07/13/2024 9:00 AM METAL OR WOOD BLOCKER Hospital Encounter [facility] [address] [place] [address] Jaya Grier MD [facility] [address] [place] [phone] 07/13/2024 9:00 AM METAL OR WOOD BLOCKER - 07/13/2024 9:30 AM METAL OR WOOD BLOCKER Surgery [facility] [address] [place] [address] Jaya Grier MD [facility] [address] [place] [address] [place] [id number] ESOPHAGOGASTRODUODENOSCOPY Scheduled Procedures Name Priority Associated Diagnoses Date/Ti me ESOPHAGOGASTRODUODENOSCOPY Anemia, unspecified type Gastritis without bleeding, unspecified chronicity, unspecified gastritis type 07/13/2024 9:00 AM METAL OR WOOD BLOCKER COLONOSCOPY Iron deficiency anemia due to chronic blood loss documented as of this encounter Results * Folate (02/07/2021 5:20 PM CDT) Folic acid >20.0 >=5.0 ng/mL NILSA RODRIGES Comment:Testing performed by : [facility], [address] [place] [address]., [id number] Blood 02/07/2021 5:20 PM CDT 02/07/2021 5:33 PM CDT Adryan Swenson MD LAB BLOOD ORDERABLES Final Result NILSA RODRIGES [id number] [facility] Department [place] [address] * Vitamin B12 (02/07/2021 5:20 PM CDT) Vitamin B12 684 230 - 1,250 pg/mL NILSA Comment:Testing performed by : [address] [address] Blood 02/07/2021 5:20 PM CDT 02/07/2021 5:33 PM CDT Adryan Swenson MD LAB BLOOD ORDERABLES Final Result [address] [address] * (ABNORMAL) Erythrocyte sedimentation rate (02/07/2021 5:20 PM CDT) Pathologist [facility] Erythrocyte sedimentation rate 94(H) 1 - 30 mm/hr NILSA Comment:Testing performed by : [address] [address] Blood 02/07/2021 5:20 PM CDT 02/07/2021 5:34 PM CDT Adryan Swenson MD LAB BLOOD ORDERABLES Final Result Performing Organization Address City/[facility]/ZIP Co de Phone Number [address] [place] [address] * CRP (acute phase) (02/07/2021 5:20 PM CDT) Pathologist [facility] CRP 3.1 <=10.0 mg/L NILSA Comment:Testing performed by : [address] [address] Blood 02/07/2021 5:20 PM CDT 02/07/2021 5:33 PM CDT Adryan Swenson MD LAB BLOOD ORDERABLES [place] [address] [place] [id number] * (ABNORMAL) Vitamin D 25 hydroxy (02/07/2021 5:20 PM CDT) Vitamin D 25-OH 21.0(L) 30.0 - 80.0 ng/mL NILSA Comment:Below Ref Range Blood 02/07/2021 5:20 PM CDT 02/07/2021 6:27 PM CDT Adryan Swenson MD LAB BLOOD ORDERABLES Final Result Performing Organization Address [facility] Co de Phone Number [address] [address] * TSH reflex to free T4 (02/07/2021 5:20 PM CDT) Pathologist [facility] TSH 1.54 0.30 - 4.20 mcIUnit/mL NILSA Comment:Testing performed by : [facility], [address] [place] [address], [id number] Blood 02/07/2021 5:20 PM CDT 02/07/2021 5:33 PM CDT Adryan Swenson MD LAB BLOOD ORDERABLES Final Result Performing Organization Address [facility] Co de Phone Number [address] [address] documented in this encounter Visit Diagnoses Diagnosis Encounter for psychiatric assessment- Primary Dementia (HCC) Other persistent mental disorders due to conditions classified elsewhere Schizoaffective disorder, bipolar type (CMS/HCC) (HCC) Schizoaffective disorder, unspecified condition Uncontrolled type 2 diabetes mellitus with hyperglycemia (HCC) Vitamin D deficiency Anemia, unspecified type Gastritis without bleeding, unspecified chronicity, unspecified gastritis type documented in this encounter Additional Health Concerns Infection Onset Date Last Indicated Resolved Time MRSA 01/06/2020 01/06/2020 02/06/2021 5:00 AM CDT COVID: Suspected 12/10/2020 12/10/2020 12/24/2020 3:05 AM CDT documented as of this encounter Care Teams Recreation Supervisor Relationship Specialty Start Date End Date Cherelle Corcoran MD PCP - General Family Medicine 08/30/19 Mark Queen MD Consulting Physician Infectious Diseases 01/10/20 documented as of this encounter
--- OUTSIDE RECORDS SUMMARY | 2024-07-04 04:19 | XMS_ITS | Encounter Summary ---
Author Organization [facility] Address [address] [place] [address] Care Team Providers Care Field Laborer Name Role Phone Cherelle Corcoran MD Primary Care Pro vider Mark Queen MD Unavailable [phone] Reason for Visit * Reason Comments Follow-up Pt in the office for 4 week follow up. Med Refill Pt needing refill on Trulicity. Encounter Details Date Type Department Care Team (Latest Contact Info) Description 10/02/2020 3:45 PM CDT Office Visit [facility] Primary Care [address] [place] [phone] Cherelle Corcoran MD [address] [place] [address] Uncontrolled type 2 diabetes mellitus with hyperglycemia (CMS/HCC) (Primary Dx); Other diabetic neurological complication associated with type 2 diabetes mellitus (CMS/HCC); Hypertension associated with diabetes (CMS/HCC); Hyperlipidemia associated with type 2 diabetes mellitus (CMS/HCC); Amputation of toe of right foot (CMS/HCC); Iron deficiency anemia, unspecified iron deficiency anemia type; Schizophrenia, unspecified type (CMS/HCC); Constipation, unspecified constipation type Social History Tobacco Use Types Packs/Day Years Used Date Smoking Tobacco: Never Smokeless Tobacco: Never Alcohol Use Standard Drinks/Week Comments Not Currently 0 (1 standard drink = 0.6 oz pur e alcohol) PHQ-2 Answer Date Recorded PHQ-2 Total Score 0 01/17/2020 Comments No Sex and Gender Information Value Date Recorded Sex Assigned at Not on file Legal Sex Female 9:03 AM PRINTED CIRCUIT BOARDS PINNER Gender Identity Female 02/08/2020 6:39 PM CDT Sexual Orientation Not on file documented as of this encounter Last Filed Vital Signs Vital Sign Reading Time Taken Comments Blood Pressure 132/82 10/02/2020 4:15 PM CDT Pulse 80 10/02/2020 4:15 PM CDT Temperature 36.7 ??C (98.1 ??F) 10/02/2020 4:15 PM CD T Respiratory Rate 16 10/02/2020 4:15 PM CDT Oxygen Saturation 98% 10/02/2020 4:15 PM CDT Inhaled Oxygen Concentration - - Weight 59.9 kg (132 lb) 10/02/2020 4:15 PM CDT Height 157.5 cm (5' 2 ) 10/02/2020 4:15 PM CDT Body Mass Index 24.14 10/02/2020 4:15 PM CDT documented in this encounter Ordered Prescriptions Prescription Sig Dispense Quantity Refills Last Filled Start Date End Date docusate sodium (COLACE) 100 mg capsuleIndications :constipation Take 1 capsule (100 mg total) by mouth 2 (two) times a day as needed for constipation 180 capsule 1 10/02/2020 12/19/19 21 lisinopriL (PRINIVIL,ZESTRIL) 10 mg tabletIndications: Hypertension associated with diabetes (HCC) Take 1 tablet (10 mg total) by mouth daily 90 tablet 10/02/2020 03/20/20 21 dulaglutide (TRULICITY) 3 mg/0.5 mL pen injectorIndication s:Uncontrolled type 2 diabetes mellitus with hyperglycemia (HCC) Inject 0.5 mL (3 mg total) under the skin once a week 6 mL 10/02/2020 12/26/19 21 insulin glargine (LANTUS, BASAGLAR) 100 unit/mL (3 mL) pen for injectionIndicatio ns:Uncontrolled type 2 diabetes mellitus with hyperglycemia (HCC) Inject 45 Units under the skin daily 5 pen 3 10/02/2020 11/14/19 documented in this encounter Progress Notes * Cherelle Corcoran MD - 10/02/2020 3:45 PM CDT Images from the original note were not included. Assessment/Plan: Assessment/Plan Diagnoses and all orders for this visit: Uncontrolled type 2 diabetes mellitus with hyperglycemia (CMS/HCC) (Primary) Assessment & Plan: Uncontrolled Lab Results Component Value Date HGBA1C 9.1 10/02/2020 Increase lantus to 45 units nightly Continue 3mg trulicity weekly Orders: - POCT hemoglobin A1c - insulin glargine (LANTUS, BASAGLAR) 100 unit/mL (3 mL) pen for injection; Inject 45 Units under the skin daily - dulaglutide (TRULICITY) 3 mg/0.5 mL pen injector; Inject 0.5 mL (3 mg total) under the skin once a week Other diabetic neurological complication associated with type 2 diabetes mellitus (CMS/HCC) Assessment & Plan: Continue gabapentin Hypertension associated with diabetes (CMS/HCC) Assessment & Plan: Controlled Continue 10mg lisinopril Orders: - lisinopriL (PRINIVIL,ZESTRIL) 10 mg tablet; Take 1 tablet (10 mg total) by mouth daily Hyperlipidemia associated with type 2 diabetes mellitus (CMS/HCC) Assessment & Plan: Uncontrolled, cardiology increased atorvastatin to 40mg, advised to take two 20mg tablets until runs out Amputation of toe of right foot (CMS/HCC) Assessment & Plan: Stable Iron deficiency anemia, unspecified iron deficiency anemia type Assessment & Plan: Continue iron Schizophrenia, unspecified type (CMS/HCC) Assessment & Plan: Seeing psychiatry Constipation, unspecified constipation type - docusate sodium (COLACE) 100 mg capsule; Take 1 capsule (100 mg total) by mouth 2 (two) times a day as needed for constipation F/u 2 weeks or sooner as needed if symptoms not improving or worsen. Strict return/ED precautions discussed. Subjective: Barbara Chakraborty is a 69 y.o. female here for diabetes mellitus follow up HPI Chief Complaint Patient presents with ??? Follow-up Pt in the office for 4 week follow up. ??? Med Refill Pt needing refill on Trulicity. ?? Peripheral edema: seen by cardiology and had normal ECHO ?? Diabetes mellitus Medications: 3mg trulicity weekly, 42 units lantus daily Fasting blood sugar: 120-140, did have a couple 200+, daughter unsure if she took her medications the night before, notes having pasta the night before 2h post prandial blood sugar: daughter unsure if she is checking no hypoglycemia episodes CKD: seeing nephro?? Hypertension: on 10mg lisinopril Hyperlipidemia: on 40mg atorvastatin, increased by cardiology ?? Review of Systems Constitutional: Negative for fever. HENT: Negative for sore throat. Respiratory: Negative for cough and shortness of breath. Gastrointestinal: Negative for diarrhea and vomiting. Musculoskeletal: Negative for myalgias. Objective: Vital signs were reviewed. Vitals: 10/02/20 1615 BP: 132/82 BP Location: Left arm Patient Position: Sitting Pulse: 80 Resp: 16 Temp: 36.7 ??C (98.1 ??F) TempSrc: Tympanic SpO2: 98% Weight: 59.9 kg (132 lb) Height: 157.5 cm (5' 2 ) [...] Plan Note - Cherelle Corcoran MD - 10/02/2020 4:35 PM CDTAssociated Problem(s): History of amputation of toe (CMS/HCC) (HCC) Stable * Assessment & Plan Note - Cherelle Corcoran MD - 10/02/2020 4:35 PM CDTAssociated Problem(s): Diabetic neuropathy (HCC) (Resolved 05/16/2024) Continue gabapentin * Assessment & Plan Note - Cherelle Corcoran MD - 10/02/2020 4:35 PM CDTAssociated Problem(s): Gastroesophageal reflux disease without esophagitis Continue omeprazole * Assessment & Plan Note - Cherelle Corcoran MD - 10/02/2020 4:35 PM CDTAssociated Problem(s): Schizoaffective disorder, bipolar type (CMS/HCC) (HCC) (Deleted) Seeing psychiatry * Assessment & Plan Note - Cherelle Corcoran MD - 10/02/2020 4:35 PM CDTAssociated Problem(s): Iron deficiency anemia Continue iron * Assessment & Plan Note - Cherelle Corcoran MD - 10/02/2020 4:34 PM CDTAssociated Problem(s): Mixed hyperlipidemia Uncontrolled, cardiology increased atorvastatin to 40mg, advised to take two 20mg tablets until runs out * Assessment & Plan Note - Cherelle Corcoran MD - 10/02/2020 4:34 PM CDTAssociated Problem(s): Primary hypertension Controlled Continue 10mg lisinopril * Assessment & Plan Note - Cherelle Corcoran MD - 10/02/2020 4:33 PM CDTAssociated Problem(s): Type 2 diabetes mellitus with diabetic neuropathy, with long-term current use of insulin ([facility]) Uncontrolled Lab Results Component Value Date HGBA1C 9.1 10/02/2020 Increase lantus to 45 units nightly Continue 3mg trulicity weekly documented in this encounter Plan of Treatment Upcoming Encounters Date Type Department Care Team (Latest Contact Info) Description 07/13/2024 9:00 AM PRINTED CIRCUIT BOARDS PINNER Hospital Encounter [facility] [address] [place] [address] Jaya Grier MD [address] [place] [address] [address] [place] [address] 07/13/2024 9:00 AM PRINTED CIRCUIT BOARDS PINNER - 07/13/2024 9:30 AM PRINTED [employer] BOAR[employer] PINNER Surgery [facility] [address] [place] [address] Jaya Grier MD [address] [place] [address] [address] [place] [address] ESOPHAGOGASTRODUODENOSCOPY Scheduled Procedures Name Priority Associated Diagnoses Date/Ti hi ESOPHAGOGASTRODUODENOSCOPY Anemia, unspecified type Gastritis without bleeding, unspecified chronicity, unspecified gastritis type 07/13/2024 9:00 AM PRINTED CIRCUIT BOARDS PINNER COLONOSCOPY Iron deficiency anemia due to chronic blood loss documented as of this encounter Procedures Procedure Name Priority Date/Time Associated Diagnosis Comments POCT HEMOGLOBIN A1C Routine 10/02/2020 4 :24 PM CDT Uncontrolled type 2 diabetes mellitus with hyperglycemia (CMS/HCC) documented in this encounter Results * POCT hemoglobin A1c (10/02/2020 4:24 PM CDT) Hemoglobin A1C, POC 9.1 Blood specimen (specimen) 10/02/2020 4:24 PM CDT Narrative Rosa Melo MA - 10/02/2020 4:24 PM CDT [id number] Cherelle Corcoran MD POINT OF CARE GOMEZ T ORDERABLES Final Result documented in this encounter Visit Diagnoses Diagnosis Uncontrolled type 2 diabetes mellitus with hyperglycemia (HCC)- Primary Other diabetic neurological complication associated with type 2 diabetes mellitus (HCC) Hypertension associated with diabetes (HCC) Unspecified essential hypertension Hyperlipidemia associated with type 2 diabetes mellitus (HCC) Amputation of toe of right foot (CMS/HCC) (HCC) Iron deficiency anemia, unspecified iron deficiency anemia type Schizophrenia, unspecified type (HCC) Constipation, unspecified constipation type Anemia, unspecified type Gastritis without bleeding, unspecified chronicity, unspecified gastritis type documented in this encounter Discontinued Medications Medication Sig Discontinue Reason Start Date End Da te insulin glargine (LANTUS,BASAGLAR) 100 unit/mL (3 mL) insulin penIndications:Uncontro lled type 2 diabetes mellitus with hyperglycemia (HCC) Inject 42 Units under the skin daily Reorder 06/01/2020 10/02/2020 dulaglutide (TRULICITY) 3 mg/0.5 mL pen injectorIndications:Unc ontrolled type 2 diabetes mellitus with hyperglycemia (HCC) Inject 0.5 mL (3 mg total) under the skin once a week Reorder 08/28/2020 10/02/2020 lisinopriL (PRINIVIL,ZESTRIL) 10 mg tabletIndications:Essen tial hypertension Take 1 tablet (10 mg total) by mouth daily Reorder 12/09/2019 10/02/2020 docusate sodium (COLACE) 100 mg capsuleIndications:cons tipation Take 1 capsule (100 mg total) by mouth 2 (two) times a day as needed for constipation Reorder 01/10/2020 10/02/2020 documented as of this encounter Additional Health Concerns Infection Onset Date Last Indicated Resolved Time MRSA 01/06/2020 01/06/2020 02/06/2021 5:00 AM CDT documented as of this encounter Care Teams Field Laborer Relationship Specialty Start Date End Date Cherelle Corcoran MD PCP - General Family Medicine 08/30/19 Mark Queen MD Consulting Physician Infectious Diseases 01/10/20 documented as of this encounter
--- OUTSIDE RECORDS SUMMARY | 2024-07-04 04:19 | XMS_ITS | Encounter Summary ---
Author Organization [facility] Address [address] [place] [address] Care Team Providers Care Color Consultant Name Role Phone Cherelle Corcoran MD Primary Care Pro vider Mark Queen MD Unavailable [phone] Encounter Details Date Type Department Care Team (Late st Contact Info) Description 10/17/2020 Telephone [facility] Behavioral Health [address] [address] [place] [address] [address] Social History Tobacco Use Types Packs/Day Years Used Date Smoking Tobacco: Never Smokeless Tobacco: Never Alcohol Use Standard Drinks/Week Comments Not Currently 0 (1 standard drink = 0.6 oz pur e alcohol) PHQ-2 Answer Date Recorded PHQ-2 Total Score 0 01/17/2020 Comments No Sex and Gender Information Value Date Recorded Sex Assigned at Not on file Legal Sex Female 9:03 AM DAIRY TESTER Gender Identity Female 02/08/2020 6:39 PM CDT Sexual Orientation Not on file documented as of this encounter Miscellaneous Notes * Telephone Encounter - Elvia Garrett - 10/17/2020 9:14 AM CDT Called pts Daughter Areli regarding message about Mom's labs. Per Dr. Swenson , will discuss next appt, non urgent. Daughter understood. documented in this encounter Plan of Treatment Upcoming Encounters Date Type Department Care Team (Latest Contact Info) Description 07/13/2024 9:00 AM DAIRY TESTER Hospital Encounter [facility] [address] [place] [address] Jaya Grier MD [address] [place] [address] 07/13/2024 9:00 AM DAIRY TESTER - 07/13/2024 9:30 AM DAIRY TESTER Surgery [facility] [address] [place] [address] Jaya Grier MD [facility] [place] [address] ESOPHAGOGASTRODUODENOSCOPY Scheduled Procedures Name Priority Associated Diagnoses Date/Ti me ESOPHAGOGASTRODUODENOSCOPY Anemia, unspecified type Gastritis without bleeding, unspecified chronicity, unspecified gastritis type 07/13/2024 9:00 AM DAIRY TESTER COLONOSCOPY Iron deficiency anemia due to chronic blood loss documented as of this encounter Visit Diagnoses Not on filedocumented in this encounter Additional Health Concerns Infection Onset Date Last Indicated Resolved Time MRSA 01/06/2020 01/06/2020 02/06/2021 5:00 AM CDT documented as of this encounter Care Teams Color Consultant Relationship Specialty Start Date End Date Cherelle Corcoran MD PCP - General Family Medicine 08/30/19 Mark Queen MD Consulting Physician Infectious Diseases 01/10/20 documented as of this encounter
--- OUTSIDE RECORDS SUMMARY | 2024-07-04 04:19 | XMS_ITS | Encounter Summary ---
Author Organization [facility] Address [address] [place] [address] Care Team Providers Care Filtering Machine Tender Helper Name Role Phone Duane Callahan MD Primary Care Pro vider Mark Queen MD Unavailable [phone] Reason for Referral * Consultation (Routine) - Closed Specialty Diagnoses / Procedures Referred By Contflex t Referred To Contact Nephrology Diagnoses STEFANO (acute kidney injury) (HCC) Uncontrolled type 2 diabetes mellitus with hyperglycemia (HCC) Duane Callahan MD Phone: tel: fax: [facility] Nephrology [address] [facility] [place] [address] Phone: tel: fax: Referral ID Status Reason Start Date Expiration Date V isits Requested Visits Authorized [id number] Closed Specialty Services Required 07/25/2020 08/24/2021 1 1 Question Answer Please select the performing region: [facility] [[id number]] Please select the performing department: [facility]ARATED[facility] NEPH [facility] 330 [[id number]] # of visits: 1 O COMMUNICATIONS SUPERINTENDENT Encounter Details Date Type Department Care Team (Late st Contact Info) Description 07/25/2020 Orders Only [facility] Primary Care [address] [place] [address] Duane Callahan MD [address] [address] Elevated brain natriuretic peptide (BNP) level (Primary Dx); Peripheral edema; Hypertension associated with diabetes ([facility]/HCC); STEFANO (acute kidney injury) ([facility]); Uncontrolled type 2 diabetes mellitus with hyperglycemia ([facility]) Social [...] on file Legal Sex Female 9:03 AM RADIO COMMUNICATIONS SUPERINTENDENT Gender Identity Female 02/08/2020 6:39 PM CDT Sexual Orientation Not on file documented as of this encounter Miscellaneous Notes * Addendum Note - Duane Callahan MD - 07/25/2020 9:54 AM RADIO COMMUNICATIONS SUPERINTENDENT Addended by: DUANE CALLAHAN on: 07/25/2020 10:03 AM Modules accepted: Orders O COMMUNICATIONS SUPERINTENDENT documented in this encounter Plan of Treatment Upcoming Encounters Date Type Department Care Team (Latest Contact Info) Description 07/13/2024 9:00 AM RADIO COMMUNICATIONS SUPERINTENDENT Hospital Encounter [facility] [address] [place] [address] Jaya Grier MD [facility] [address] [address] 07/13/2024 9:00 AM RADIO COMMUNICATIONS SUPERINTENDENT - 07/13/2024 9:30 AM RADIO COMMUNICATIONS SUPERINTENDENT Surgery [facility] [address] [place] [address] Jaya Grier MD [address] [address] ESOPHAGOGASTRODUODENOSCOPY Scheduled Procedures Name Priority Associated Diagnoses Date/Ti me ESOPHAGOGASTRODUODENOSCOPY Anemia, unspecified type Gastritis without bleeding, unspecified chronicity, unspecified gastritis type 07/13/2024 9:00 AM RADIO COMMUNICATIONS SUPERINTENDENT COLONOSCOPY Iron deficiency anemia due to chronic blood loss Scheduled Referrals Name Type Priority Associated Diagnoses Orde r Schedule Ambulatory referral to Nephrology Outpatient Referral Routine STEFANO (acute kidney injury) ([facility]) Uncontrolled type 2 diabetes mellitus with hyperglycemia ([facility]) Expected: 08/01/2020 (Approximate), Expires: 07/25/2021 documented as of this encounter Visit Diagnoses Diagnosis Elevated brain natriuretic peptide (BNP) level- Primary Peripheral edema Edema Hypertension associated with diabetes (HCC) Unspecified essential hypertension STEFANO (acute kidney injury) (HCC) Uncontrolled type 2 diabetes mellitus with hyperglycemia (HCC) Anemia, unspecified type Gastritis without bleeding, unspecified chronicity, unspecified gastritis type documented in this encounter Additional Health Concerns Infection Onset Date Last Indicated Resolved Time MRSA 01/06/2020 01/06/2020 02/06/2021 5:00 AM CDT documented as of this encounter Care Teams Filtering Machine Tender Helper Relationship Specialty Start Date End Date Duane Callahan MD PCP - General Family Medicine 08/30/19 Mark Queen MD Consulting Physician Infectious Diseases 01/10/20 documented as of this encounter
--- OUTSIDE RECORDS SUMMARY | 2024-07-04 04:19 | XMS_ITS | Encounter Summary ---
Author Organization [facility] Address [address] [place] [address] Care Team Providers Care Fan Mail Editor Name Role Phone Cherelle Corcoran MD Primary Care Pro vider Mark Queen MD Unavailable [phone] Encounter Details Date Type Department Care Team (Late st Contact Info) Description 07/25/2020 Telephone [facility] Primary Care [address] [place] [address] Anshu Platt MA Social History Tobacco Use Types Packs/Day Years Used Date Smoking Tobacco: Never Smokeless Tobacco: Never Alcohol Use Standard Drinks/Week Comments Not Currently 0 (1 standard drink = 0.6 oz pur e alcohol) PHQ-2 Answer Date Recorded PHQ-2 Total Score 0 01/17/2020 Comments No Sex and Gender Information Value Date Recorded Sex Assigned at Not on file Legal Sex Female 9:03 AM TIRE BUILDER HEAVY SERVICE Gender Identity Female 02/08/2020 6:39 PM CDT Sexual Orientation Not on file documented as of this encounter Miscellaneous Notes * Telephone Encounter - Anshu Platt MA - 07/25/2020 10:56 AM CST Error. BUILDER HEAVY SERVICE documented in this encounter Plan of Treatment Upcoming Encounters Date Type Department Care Team (Latest Contact Info) Description 07/13/2024 9:00 AM TIRE BUILDER HE[employer] SERVICE Hospital Encounter [facility] [address] [place] [address] Jaya Grier MD [address] [place] [address] 07/13/2024 9:00 AM TIRE BUILDER [employer] SERVICE - 07/13/2024 9:30 AM TIRE BUILDER HEAVY SERVICE Surgery [facility] [address] [place] [address] Jaya Grier MD [address] [facility] [address] [place] [address] ESOPHAGOGASTRODUODENOSCOPY Scheduled Procedures Name Priority Associated Diagnoses Date/Ti me ESOPHAGOGASTRODUODENOSCOPY Anemia, unspecified type Gastritis without bleeding, unspecified chronicity, unspecified gastritis type 07/13/2024 9:00 AM TIRE BUILDER HE[employer] SERVICE COLONOSCOPY Iron deficiency anemia due to chronic blood loss documented as of this encounter Visit Diagnoses Not on filedocumented in this encounter Additional Health Concerns Infection Onset Date Last Indicated Resolved Time MRSA 01/06/2020 01/06/2020 02/06/2021 5:00 AM CDT documented as of this encounter Care Teams Fan Mail Editor Relationship Specialty Start Date End Date Cherelle Corcoran MD PCP - General Family Medicine 08/30/19 Mark Queen MD Consulting Physician Infectious Diseases 01/10/20 documented as of this encounter
--- OUTSIDE RECORDS SUMMARY | 2024-07-04 04:19 | XMS_ITS | Encounter Summary ---
Author Organization [facility] Healthcare Address [address] [place] [address] Care Team Providers Care Integrity Assessor Name Role Phone Cherelle Corcoran MD Primary Care Pro vider Mark Queen MD Unavailable [phone] Encounter Details Date Type Department Care Team (Late st Contact Info) Description 10/16/2020 4:01 PM CDT Hospital Encounter [facility] [place] [id number] [address] Social History Tobacco Use Types Packs/Day Years Used Date Smoking Tobacco: Never Smokeless Tobacco: Never Alcohol Use Standard Drinks/Week Comments Not Currently 0 (1 standard drink = 0.6 oz pur e alcohol) PHQ-2 Answer Date Recorded PHQ-2 Total Score 0 01/17/2020 Comments No Sex and Gender Information Value Date Recorded Sex Assigned at Not on file Legal Sex Female 9:03 AM OCCUPATIONAL PHYSICIAN Gender Identity Female 02/08/2020 6:39 PM CDT Sexual Orientation Not on file documented as of this encounter Medications at Time of Discharge ferrous sulfate 325 mg (65 mg of elemental iron) tabletIndications: Iron Deficiency Anemia Take 1 tablet (325 mg total) by mouth daily with breakfast 30 tablet 11 01/11/2020 01/11/20 21 glucose 4 gram chewable tabletIndications: Uncontrolled type 2 diabetes mellitus with hyperglycemia (HCC) Take 4 tablets (16 g total) by mouth as needed for low blood sugar (less than 70) and let Dr. Corcoran know! 50 tablet 10/16/2020 10/17/19 22 aspirin 325 mg tabletIndications: Pain Take 325 mg by mouth every 6 (six) hours as needed for pain. Indications: pain 02/22/20 21 atorvastatin (LIPITOR) 40 mg tablet Take 1 tablet (40 mg total) by mouth daily 90 tablet 09/11/2020 11/22/19 21 docusate sodium (COLACE) 100 mg capsuleIndications :constipation Take 1 capsule (100 mg total) by mouth 2 (two) times a day as needed for constipation 180 capsule 1 10/02/2020 12/19/19 21 dulaglutide (TRULICITY) 3 mg/0.5 mL pen [...] skin daily 5 pen 3 10/02/2020 11/14/19 21 lidocaine (LIDODERM) 5 %Indications:Acute upper back pain Place 1 patch on the skin daily Apply to painful area 12 hours per day, remove for 12 hours. 30 patch 1 07/24/2020 04/05/20 21 lisinopriL (PRINIVIL,ZESTRIL) 10 mg tabletIndications: Hypertension associated with diabetes (HCC) Take 1 tablet (10 mg total) by mouth daily 90 tablet 10/02/2020 03/20/20 21 meclizine (ANTIVERT) 25 mg tablet TK 1 T PO TID PRF DIZZINESS 03/25/2020 12/11/19 21 multivitamin with minerals tablet Take 1 tablet by mouth daily 08/07/19 23 omeprazole (PriLOSEC) 20 mg capsule Take 1 capsule (20 mg total) by mouth daily 90 capsule 07/24/2020 01/17/20 21 OneTouch Verio test strips stripIndications:U ncontrolled type 2 diabetes mellitus with hyperglycemia (HCC) TEST 3 TO 4 TIMES DAILY 400 each 1 08/10/2020 06/25/19 22 pen needle, diabetic 32 gauge x 16 needleIndications: Uncontrolled type 2 diabetes mellitus with hyperglycemia (HCC) Use to inject basaglar nightly 100 each 1 01/17/2020 06/25/19 22 risperiDONE (RisperDAL) 2 mg tablet Take 1 tablet (2 mg total) by mouth nightly 30 tablet 3 10/10/2020 11/21/19 21 syringe with needle, insulin (INSULIN SYRINGE-NEEDLE U-100 MISC) 3 times a day 09/12/2017 12/01/19 23 documented as of this encounter Plan of Treatment Upcoming Encounters Date Type Department Care Team (Latest Contact Info) Description 07/13/2024 9:00 AM OCCUPATIONAL PHYSICIAN Hospital Encounter [facility] GI Lab [address] [place] [address] Jaya Grier MD [facility] [address] [place] [address] 07/13/2024 9:00 AM OCCUPATIONAL PHYSICIAN - 07/13/2024 9:30 AM OCCUPATIONAL PHYSICIAN Surgery [facility] Lab [address] [place] [address] Jaya Grier MD [facility] [address] [place] [address] ESOPHAGOGASTRODUODENOSCOPY Scheduled Procedures Name Priority Associated Diagnoses Date/Ti al ESOPHAGOGASTRODUODENOSCOPY Anemia, unspecified type Gastritis without bleeding, unspecified chronicity, unspecified gastritis type 07/13/2024 9:00 AM OCCUPATIONAL PHYSICIAN COLONOSCOPY Iron deficiency anemia due to chronic blood loss documented as of this encounter Procedures Procedure Name Priority Date/Time Associated Diagnosis Comments THYROID FUNCTION CASCADE Routine 10/16/2020 4:16 PM CDT VITAMIN D 25 HYDROXY Routine 10/16/2020 4:16 PM CDT ERYTHROCYTE SEDIMENTATION RATE Routine 10/16/2020 4:16 PM CDT CRP (ACUTE PHASE) Routine 10/16/2020 4:1 6 PM CDT FOLATE Routine 10/16/2020 4:16 PM CDT VITAMIN B12 Routine 10/16/2020 4:16 PM CDT documented in this encounter Results * TSH reflex to free T4 (10/16/2020 4:16 PM CDT) TSH W REFLEX TO FT4 0.990 0.27 - 4.20 uIU/mL [facility] 10/16/2020 4:16 PM CDT 10/16/2020 4:35 PM CDT Narrative Resulting Agency Comment CLI us Adryan Swenson MD LAB BLOOD ORDERABLES Final Result Performing Organization Address City/[facility]/ZIP Co de Phone Number [address] [phone] * Vitamin D 25 hydroxy (10/16/2020 4:16 PM CDT) 25-OH Vitamin D Total 30 30 - 80 ng/mL [facility] 10/16/2020 4:16 PM CDT 10/16/2020 4:35 PM CDT Narrative Resulting Agency Comment CLI us Adryan Swenson MD LAB BLOOD ORDERABLES Final Result [facility] [address] [phone] * Folate (10/16/2020 4:16 PM CDT) Folate 20.0 ng/mL [facility] Comment: Reference Range ??> 5.0 ng/mL Folate has been standardized against the WHO International Standard BS code: 03178 10/16/2020 4:16 PM CDT 10/16/2020 4:35 PM CDT Narrative Resulting Agency Comment CLI Adryan Swenson MD LAB BLOOD ORDERABLES Final Result Performing Organization Address City/[facility]/ZIP Co de Phone Number [address] [phone] * Vitamin B12 (10/16/2020 4:16 PM CDT) Vitamin B12 761 230 - 1,250 pg/mL [facility] 10/16/2020 4:16 PM CDT 10/16/2020 4:35 PM CDT Narrative Resulting Agency Comment CLI Adryan wSenson MD LAB BLOOD ORDERABLES Final Result Performing Organization Address [facility] de Phone Number [address] [phone] * (ABNORMAL) CRP (acute phase) (10/16/2020 4:16 PM CDT) C-Reactive Protein 11.4(H) 0.0 - 10.0 mg/L [facility] 10/16/2020 4:16 PM CDT 10/16/2020 4:35 PM CDT Narrative Resulting Agency Comment CLI Adryan Swenson MD LAB BLOOD ORDERABLES Final Result Performing Organization Address [facility] Co de Phone Number [address] [phone] * (ABNORMAL) Erythrocyte sedimentation rate (10/16/2020 4:16 PM CDT) ESR 73(H) 1 - 30 mm/hr [facility] 10/16/2020 4:16 PM CDT 10/16/2020 4:35 PM CDT Narrative Resulting Agency Comment CLI us Adryan Swenson MD LAB BLOOD ORDERABLES Final Result Performing Organization Address City/State/[facility] Co de Phone Number [address] [phone] documented in this encounter Visit Diagnoses Not on filedocumented in this encounter Additional Health Concerns Infection Onset Date Last Indicated Resolved Time MRSA 01/06/2020 01/06/2020 02/06/2021 5:00 AM CDT documented as of this encounter Care Teams Integrity Assessor Relationship Specialty Start Date End Date Cherelle Corcoran MD PCP - General Family Medicine 08/30/19 Mark Queen MD Consulting Physician Infectious Diseases 01/10/20 documented as of this encounter
--- OUTSIDE RECORDS SUMMARY | 2024-07-04 04:19 | XMS_ITS | Encounter Summary ---
Author Organization [facility] Healthcare Address [address] [place] [address] Care Team Providers Care Tree And Shrub Technician Name Role Phone Cherelle Corcoran MD Primary Care Pro vider Mark Queen MD Unavailable [phone] Reason for Visit * Reason Onset Date Comments No Show 12/19/2020 Encounter Details Date Type Department Care Team (Late st Contact Info) Description 12/19/2020 Documentation [facility] Medical Office Bldg 1 OP Physical Therapy [address] [place] [id number] Rina Boothe, APPRENTICE PAINTER [employer]ECKTIES No Show Social History Tobacco Use Types Packs/Day Years Used Date Smoking Tobacco: Never Smokeless Tobacco: Never Alcohol Use Standard Drinks/Week Comments Not Currently 0 (1 standard drink = 0.6 oz pur e alcohol) PHQ-2 Answer Date Recorded PHQ-2 Total Score 0 01/17/2020 Comments No Sex and Gender Information Value Date Recorded Sex Assigned at Not on file Legal Sex Female 9:03 AM CRYPTOGRAPHIC CENTER SPECIALIST Gender Identity Female 02/08/2020 6:39 PM CDT Sexual Orientation Not on file documented as of this encounter Progress Notes * Rina Boothe PTA - 12/19/2020 8:59 AM CDT Pt no show. Attempted to call and call would not go through documented in this encounter Plan of Treatment Upcoming Encounters Date Type Department Care Team (Latest Contact Info) Description 07/13/2024 9:00 AM CRYPTOGRAPHIC CENTER SPECIALIST Hospital Encounter [facility] GI Lab [address] [place] [address] Jaya Grier MD [address] [place] [place] [address] [address] [place] [address] 07/13/2024 9:00 AM CRYPTOGRAPHIC CENTER SPECIALIST - 07/13/2024 9:30 AM CRYPTOGRAPHIC CENTER SPECIALIST Surgery [facility] GI Lab [address] [place] [address] Jaya Grier MD [facility]0 [facility] [address] GA[address] [place] [address] ESOPHAGOGASTRODUODENOSCOPY Scheduled Procedures Name Priority Associated Diagnoses Date/Ti me ESOPHAGOGASTRODUODENOSCOPY Anemia, unspecified type Gastritis without bleeding, unspecified chronicity, unspecified gastritis type 07/13/2024 9:00 AM CRYPTOGRAPHIC CENTER SPECIALIST COLONOSCOPY Iron deficiency anemia due to chronic blood loss documented as of this encounter Visit Diagnoses Not on filedocumented in this encounter Additional Health Concerns Infection Onset Date Last Indicated Resolved Time MRSA 01/06/2020 01/06/2020 02/06/2021 5:00 AM CDT COVID: Suspected 12/10/2020 12/10/2020 12/24/2020 3:05 AM CDT documented as of this encounter Care Teams Tree And Shrub Technician Relationship Specialty Start Date End Date Cherelle Corcoran MD PCP - General Family Medicine 08/30/19 Mark Queen MD Consulting Physician Infectious Diseases 01/10/20 documented as of this encounter
--- OUTSIDE RECORDS SUMMARY | 2024-07-04 04:19 | XMS_ITS | Encounter Summary ---
Author Organization [facility] Address [address] [facility] [facility] [address] [place] [address] Care Team Providers Care Surgical Services Asst Name Role Phone Cherelle Corcoran MD Primary Care Pro vider Mark Queen MD Unavailable [phone] Reason for Visit * Reason Comments Follow-up Pt in the office for 2 week follow up. Encounter Details Date Type Department Care Team (Latest Contact Info) Description 10/16/2020 3:00 PM CDT Office Visit [facility] Primary Care [address] [place] [phone] Cherelle Corcoran MD [address] [place] [phone] Uncontrolled type 2 diabetes mellitus with hyperglycemia (CMS/HCC) (Primary Dx); Other diabetic neurological complication associated with type 2 diabetes mellitus (CMS/HCC); Schizoaffective disorder, bipolar type (CMS/HCC) Social History Tobacco Use Types Packs/Day Years Used Date Smoking Tobacco: Never Smokeless Tobacco: Never Alcohol Use Standard Drinks/Week Comments Not Currently 0 (1 standard drink = 0.6 oz pur e alcohol) PHQ-2 Answer Date Recorded PHQ-2 Total Score 0 01/17/2020 Comments No Sex and Gender Information Value Date Recorded Sex Assigned at Not on file Legal Sex Female 9:03 AM NON FERROUS MATERIAL HANDLER Gender Identity Female 02/08/2020 6:39 PM CDT Sexual Orientation Not on file documented as of this encounter Last Filed Vital Signs Vital Sign Reading Time Taken Comments Blood Pressure 134/72 10/16/2020 3:14 PM CDT Pulse 88 10/16/2020 3:14 PM CDT Temperature 36.7 ??C (98.1 ??F) 10/16/2020 3:14 PM CD T Respiratory Rate 16 10/16/2020 3:14 PM CDT Oxygen Saturation 95% 10/16/2020 3:14 PM CDT Inhaled Oxygen Concentration - - Weight 61.2 kg (135 lb) 10/16/2020 3:14 PM CDT Height 157.5 cm (5' 2 ) 10/16/2020 3:14 PM CDT Body Mass Index 24.69 10/16/2020 3:14 PM CDT documented in this encounter Patient Instructions * Patient Instructions* Cherelle Corcoran MD - 10/16/2020 3:00 PM CDT Images from the original note were not included. Increase insulin to 47 units Continue trulicity 3mg weekly Check blood sugar in the morning and 2 hours after every meal. Patient Education Mediterranean Diet MANAGER INTEGRATED: A Mediterranean diet is a meal plan that includes foods that are commonly eaten in countries that border the [place] Sea. This meal plan may provide several health benefits. These include losing or maintaining weight, and decreasing blood pressure, blood sugar, and cholesterol levels. It may also help protect against certain health conditions such as heart disease, cancer, type 2 diabetes, and Alzheimer disease. Work with a dietitian to develop a meal plan that is right for you. Foods to include in the Mediterranean diet: Include fruits and vegetables in each meal. Eat a variety of fresh fruits and vegetables. ?? Use unsaturated fats instead of saturated fats. Cook with olive or canola oil. Limit saturated fats, such as butter, margarine, and shortening. Saturated fat is an unhealthy fat that can increase your cholesterol levels. ?? Choose plant foods, poultry, and fish as your main sources of protein. ?? Eat plant-based foods that provide protein, such as lentils, beans, chickpeas, nuts, and seeds. Choose mostly plant-based foods in place of meat on most days of the week. ?? Eat protein foods high in omega-3 fats. Fish high in omega-3 fats include salmon, trout, and tuna. Include these types of fish 1 or 2 times each week. Limit fish high in mercury, such as shark, swordfish, tilefish, and juan mackerel. Magdalena-3 fats are also found in walnuts and flaxseed. ?? Choose poultry (chicken or turkey) without skin instead of red meat. Red meat is high in saturated fat. Limit eggs and high-fat meats, such as nobles, sausage, and hot dogs. ?? Choose low-fat dairy foods such as nonfat or 1% milk, or low-fat almond, cashew, or soy milk. Other examples include low-fat cheese, yogurt, and cottage cheese. ?? Limit sweets. Limit your intake of high-sugar foods, such as soda, desserts, and candy. ?? Talk to your healthcare provider about alcohol. Studies have shown that moderate intake of wine may reduce the risk of heart disease. A moderate amount of wine is 1 serving of alcohol for women and 2 servings of alcohol for men each day. A serving of wine is 5 ounces. Other things you need to know if you follow the Mediterranean diet: ?? Include foods high in iron and vitamin C. Plant-based foods that are high in iron include spinach, beans, tofu, and artichoke. Eat a serving of vitamin C with any iron-rich food to help your body absorb more iron. Examples include oranges, strawberries, cantaloupe, broccoli, and yellow peppers. ?? Get regular physical activity. The Mediterranean diet will have the most benefit if you get regular physical activity. Get 30 minutes of physical activity at least 5 days a week. Choose physical activities that increase your heart rate. Examples include walking, hiking, swimming, and riding a bike. Ask your healthcare provider about the best exercise plan for you. ?? 2017 [employer] Information is for End User's use only and may not be sold, redistributed or otherwise used for commercial purposes. All illustrations and images included in CareNotes?? are the copyrighted property of [employer]. or [employer]. The above information is an educational assistant only. It is not intended as medical advice for individual conditions or treatments. Talk to your doctor, nurse or pharmacist before following any medical regimen to see if it is safe and effective for you. Patient Education Hypoglycemia in a Person with Diabetes MANAGER INTEGRATED: Hypoglycemia is a serious condition that happens [...] ask them during your visits. ?? 2017 [employer] Information is for End User's use only and may not be sold, redistributed or otherwise used for commercial purposes. All illustrations and images included in CareNotes?? are the copyrighted property of [employer], [employer]. or [employer]. The above information is an educational assistant only. It is not intended as medical advice for individual conditions or treatments. Talk to your doctor, nurse or pharmacist before following any medical regimen to see if it is safe and effective for you. documented in this encounter Ordered Prescriptions Prescription Sig Dispense Quantity Refills Last Filled Start Date End Date glucose 4 gram chewable tabletIndications:U ncontrolled type 2 diabetes mellitus with hyperglycemia (HCC) Take 4 tablets (16 g total) by mouth as needed for low blood sugar (less than 70) and let Dr. Corcoran know! 50 tablet 10/16/2020 2 documented in this encounter Progress Notes * Cherelle Corcoran MD - 10/16/2020 3:00 PM CDT Images from the original note were not included. Assessment/Plan: Assessment/Plan Diagnoses and all orders for this visit: Uncontrolled type 2 diabetes mellitus with hyperglycemia (CMS/HCC) (Primary) Assessment & Plan: Uncontrolled BS improved, but given recent A1c >9 & has had at least one blood sugar >180 will increase lantus to 47 units Continue trulicity 3mg weekly Discussed hypoglycemia precautions Orders: - glucose 4 gram chewable tablet; Take 4 tablets (16 g total) by mouth as needed for low blood sugar (less than 70) and let Dr. Corcoran know! - Hemoglobin A1c; Future Other diabetic neurological complication associated with type 2 diabetes mellitus (CMS/HCC) Assessment & Plan: Stressed importance of diabetes control, offered to increase gabapentin, she declines currently, continue current dose Schizoaffective disorder, bipolar type (CMS/[facility]) Assessment & Plan: Following with psychiatry, reviewed notes F/u 1 month or sooner as needed if symptoms not improving or worsen. Strict return/ED precautions discussed. Subjective: Barbara Chakraborty is a 69 y.o. female here for follow up diabetes mellitus HPI Chief Complaint Patient presents with ??? Follow-up Pt in the office for 2 week follow up. Diabetes mellitus Medications:??3mg trulicity weekly, 45 units lantus daily blood sugar:??109-196 no??hypoglycemia episodes ?? Schizoaffective disorder, bipolar type: following with psychiatry, started on risperodone CKD: seeing nephro?? Hypertension: on 10mg lisinopril Hyperlipidemia: on 40mg atorvastatin, increased by cardiology Peripheral edema: seen by cardiology and had normal ECHO Review of Systems Constitutional: Negative for fever. HENT: Negative for sore throat. Respiratory: Negative for cough and shortness of breath. Gastrointestinal: Negative for diarrhea and vomiting. Musculoskeletal: Negative for myalgias. Neurological: Positive for numbness. Objective: Vital signs were reviewed. Vitals: 10/16/20 1514 BP: 134/72 BP Location: Left arm Patient Position: Sitting Pulse: 88 Resp: 16 Temp: 36.7 ??C (98.1 ??F) TempSrc: Tympanic SpO2: 95% Weight: 61.2 kg (135 lb) Height: 157.5 cm (5' 2 ) [...] Plan Note - Cherelle Corcoran MD - 10/16/2020 3:49 PM CDTAssociated Problem(s): Diabetic neuropathy (HCC) (Resolved 05/16/2024) Stressed importance of diabetes control, offered to increase gabapentin, she declines currently, continue current dose * Assessment & Plan Note - Cherelle Corcoran MD - 10/16/2020 3:48 PM CDTAssociated Problem(s): Schizoaffective disorder, bipolar type (CMS/HCC) (HCC) Following with psychiatry, reviewed notes * Assessment & Plan Note - Cherelle Corcoran MD - 10/16/2020 3:46 PM CDTAssociated Problem(s): Type 2 diabetes mellitus with diabetic neuropathy, with long-term current use of insulin (HCC) Uncontrolled BS improved, but given recent A1c >9 & has had at least one blood sugar >180 will increase lantus to 47 units Continue trulicity 3mg weekly Discussed hypoglycemia precautions documented in this encounter Plan of Treatment Upcoming Encounters Date Type Department Care Team (Latest Contact Info) Description 07/13/2024 9:00 AM NON FERROUS MATERIAL HANDLER Hospital Encounter [facility] GI Lab [address] [place] [address] Jaya Grier MD [facility] [address] [address] 07/13/2024 9:00 AM NON FERROUS MATERIAL HANDLER - 07/13/2024 9:30 AM NON FERROUS MATERIAL HANDLER Surgery [facility] GI Lab [address] [place] [address] Jaya Grier MD [address] [facility] [address] [place] [address] ESOPHAGOGASTRODUODENOSCOPY Scheduled Procedures Name Priority Associated Diagnoses Date/Ti me ESOPHAGOGASTRODUODENOSCOPY Anemia, unspecified type Gastritis without bleeding, unspecified chronicity, unspecified gastritis type 07/13/2024 9:00 AM NON FERROUS MATERIAL HANDLER COLONOSCOPY Iron deficiency anemia due to chronic blood loss documented as of this encounter Procedures Procedure Name Priority Date/Time Associated Diagnosis Comments HEMOGLOBIN A1C Routine 10/16/2020 4:16 PM CDT Uncontrolled type 2 diabetes mellitus with hyperglycemia ([facility]) documented in this encounter Results * (ABNORMAL) Hemoglobin A1c (10/16/2020 4:16 PM CDT) Hemoglobin A1c % 8.9(H) 4.0 - 5.6 % [facility] Comment: ADA 2016 GUIDELINES: ??Initial Diagnostic Criteria ? HbA1c Result: ?Interpretation: ?<5.7% ? Normal ?5.7-6.4% ?At risk for diabetes mellitus ?>=6.5% ?Consistent with diabetes mellitus ??Diabetes monitoring ? Target value (ADA Recommended) ?? <7% Blood specimen (specimen) 10/16/2020 4:16 PM CDT 10/16/2020 4:35 PM CDT Narrative Resulting Agency Comment CLI us Cherelle Corcoran MD LAB BLOOD ORDERAB LES Final Result [address] [phone] documented in this encounter Visit Diagnoses Diagnosis [...] documented as of this encounter Care Teams Surgical Services Asst Relationship Specialty Start Date End Date Cherelle Corcoran MD PCP - General Family Medicine 08/30/19 Mark Queen MD Consulting Physician Infectious Diseases 01/10/20 documented as of this encounter
--- OUTSIDE RECORDS SUMMARY | 2024-07-04 04:19 | XMS_ITS | Encounter Summary ---
Author Organization [facility] Address [address] [place] [address] Care Team Providers Care Farmworker Poultry Name Role Phone Cherelle Corcoran MD Primary Care Pro vider Mark Queen MD Unavailable [phone] Encounter Details Date Type Department Care Team (Late st Contact Info) Description 09/11/2020 10:30 AM CDT Office Visit [facility] Cardiology [address] [place] [phone] Santo Vail MD [address] [facility] [address] [place] [address] Hypertension associated with diabetes (CMS/HCC) (Primary Dx) Social History Tobacco Use Types Packs/Day Years Used Date Smoking Tobacco: Never Smokeless Tobacco: Never Alcohol Use Standard Drinks/Week Comments Not Currently 0 (1 standard drink = 0.6 oz pur e alcohol) PHQ-2 Answer Date Recorded PHQ-2 Total Score 0 01/17/2020 Comments No Sex and Gender Information Value Date Recorded Sex Assigned at Not on file Legal Sex Female 9:03 AM DRAWING PRESS OPERATOR Gender Identity Female 02/08/2020 6:39 PM CDT Sexual Orientation Not on file documented as of this encounter Last Filed Vital Signs Vital Sign Reading Time Taken Comments Blood Pressure 134/78 09/11/2020 11:37 AM CDT Pulse 83 09/11/2020 11:37 AM CDT Temperature - - Respiratory Rate - - Oxygen Saturation 99% 09/11/2020 11:37 AM CDT Inhaled Oxygen Concentration - - Weight 61.2 kg (135 lb) 09/11/2020 11:37 AM CDT Height 157.5 cm (5' 2 ) 09/11/2020 11:37 AM CDT Body Mass Index 24.69 09/11/2020 11:37 AM CDT documented in this encounter Ordered Prescriptions Prescription Sig Dispense Quantity Refills Last Filled Start Date End Date atorvastatin (LIPITOR) 40 mg tablet Take 1 tablet (40 mg total) by mouth daily 90 tablet 09/11/2020 11/21/2020 documented in this encounter Progress Notes * Santo Vail MD - 09/11/2020 10:30 AM CDT Images from the original note were not included. Cardiology Initial Clinic Visit HPI: We are seeing Barbara Chakraborty in clinic today for initial office visit. Patient is a 69 y.o. female with past medical history notable for diabetes and hypertension now presenting to establish care. She has been having some lower extremity swelling. Also having some numbness. No chest pain or dyspnea. No orthopnea or PND. States BP well controlled at home. Review of Systems: 14 point ROS was discussed with the patient and is negative except as noted in the history of present illness. Past Medical History: Diagnosis Date ??? Arthritis ??? Depression ??? Diabetic neuropathy (CMS/HCC) ??? Hypertension ??? Schizophrenia (CMS/HCC) ??? Type 2 diabetes mellitus (CMS/HCC) Past Surgical History: Procedure Laterality Date ??? SECTION ??? TOE AMPUTATION Right 01/06/2020 4th toe amp/ foot debridement/ Dr. Anat Pelayo Current Outpatient Medications: ??? dulaglutide, 3 mg, subcutaneous, Weekly ??? insulin glargine, 42 Units, subcutaneous, Daily ??? aspirin, 325 mg, oral, Q6H PRN ??? atorvastatin, 20 mg, oral, Daily ??? docusate sodium, 100 mg, oral, BID PRN ??? ferrous sulfate, 65 mg of elemental iron, oral, Daily with breakfast ??? lidocaine, 1 patch, transdermal, Daily ??? lisinopriL, 10 mg, oral, Daily ??? meclizine, TK 1 T PO TID PRF DIZZINESS ??? omeprazole, 20 mg, oral, Daily ??? OneTouch Verio test strips, TEST 3 TO 4 TIMES DAILY ??? pen needle, diabetic, Use to inject basaglar nightly ??? sodium chloride 0.9%, 10 mL, intravenous, PRN ??? syringe with needle, insulin (INSULIN SYRINGE-NEEDLE U-100 MISC), 3 times a day No Known Allergies Social History Tobacco Use ??? Smoking status: Never Smoker ??? Smokeless tobacco: Never Used Substance Use Topics ??? Alcohol use: Not Currently Family History Problem Relation Age of Onset ??? Stomach cancer Father Physical Exam: Vitals BP 134/78 (BP Location: Right arm, Patient Position: Sitting) Pulse 83 Ht 157.5 cm (5' 2 ) Wt 61.2 kg (135 lb) SpO2 99% BMI 24.69 kg/m?? General: Pleasant female in no acute [...] mL/min/1.73m2 *Relative to young adult level If -Nauruan multiply value by 1.16. Estimated glomerular filtration [...] mL/min/1.73m2 *Relative to young adult level If -Nauruan multiply value by 1.16. Estimated glomerular filtration [...] mL/min/1.73m2 *Relative to young adult level If -Nauruan multiply value by 1.16. Estimated glomerular filtration [...] 04/02/2020 15 0 - 32 U/L Final No results found for: TSH, T3FREE, FREET4 Cholesterol Date Value Ref Range Status 04/02/2020 [...] 0-125 pg/mL >74 years: 0-450 pg/mL Method: Looklet technology Assessement and Plan -hypertension. Blood pressure is well controlled on current regimen. Continue lisinopril 10 mg daily. Bring log to next visit. -hyperlipidemia. Tc 211, ldl 135, hdl 51, trig 123 In 03/2020. I will increase her atorvastatin from 20 to 40 mg daily. -lower extremity swelling. Normal LV function on TTE 12/2019. Low salt diet, compression stockings discussed. -DM2. She is managed by primary care physician. In the future, she needs additional glycemic control, could consider an SGLT 2 inhibitor for cardiac risk reduction. -Cardiac Risk Reduction: I have discussed with [...] encounter Miscellaneous Notes * Addendum Note - Benjamin Zhang MA - 09/11/2020 10:30 AM CDTAddended by: BENJAMIN ZHANG on: 09/11/2020 01:12 PM Modules accepted: Orders documented in this encounter Plan of Treatment Upcoming Encounters Date Type Department Care Team (Latest Contact Info) Description 07/13/2024 9:00 AM DRAWING PRESS OPERATOR Hospital Encounter [facility] [address] [place] [address] Jaya Grier MD [address] [address] 07/13/2024 9:00 AM DRAWING PRESS OPERATOR - 07/13/2024 9:30 AM DRAWING PRESS OPERATOR Surgery [facility] [address] [place] [address] Jaya Grier MD [address] [facility] [address] [place] [address] ESOPHAGOGASTRODUODENOSCOPY Scheduled Procedures Name Priority Associated Diagnoses Date/Ti me ESOPHAGOGASTRODUODENOSCOPY Anemia, unspecified type Gastritis without bleeding, unspecified chronicity, unspecified gastritis type 07/13/2024 9:00 AM DRAWING PRESS OPERATOR COLONOSCOPY Iron deficiency anemia due to chronic blood loss documented as of this encounter Procedures Procedure Name Priority Date/Time Associated Diagnosis Comments ECG 12-LEAD Routine 09/11/2020 Hypertension associated with diabetes (CMS/HCC) documented in this encounter Results * ECG 12 lead (09/11/2020) us Santo Vail MD ECG ORDERABLES Final Res ult documented in this encounter Visit Diagnoses Diagnosis Hypertension associated with diabetes (HCC)- Primary Unspecified essential hypertension Anemia, unspecified type Gastritis without bleeding, unspecified chronicity, unspecified gastritis type documented in this encounter Discontinued Medications Medication Sig Discontinue Reason Start Date End Da te atorvastatin (LIPITOR) 20 mg tabletIndications:Hyperl ipidemia associated with type 2 diabetes mellitus (HCC) Take 1 tablet (20 mg total) by mouth daily 07/24/2020 09/11/2020 documented as of this encounter Additional Health Concerns Infection Onset Date Last Indicated Resolved Time MRSA 01/06/2020 01/06/2020 02/06/2021 5:00 AM CDT documented as of this encounter Care Teams Farmworker Poultry Relationship Specialty Start Date End Date Cherelle Corcoran MD PCP - General Family Medicine 08/30/19 Mark Queen MD Consulting Physician Infectious Diseases 01/10/20 documented as of this encounter
--- OUTSIDE RECORDS SUMMARY | 2024-07-04 04:19 | XMS_ITS | Encounter Summary ---
Author Organization [facility] Address [address] [place] [address] Care Team Providers Care Product Development Chemist Name Role Phone Cherelle Corcoran MD Primary Care Pro vider Mark Queen MD Unavailable [phone] Reason for Referral * Consultation (Routine) - Closed Specialty Diagnoses / Procedures Referred By Maryse lama Referred To Contact Physical Therapy Diagnoses Chronic left shoulder pain Cherelle Corcoran MD Phone: tel: fax: [address] [address] Referral ID Status Reason Start Date Expiration Date V isits Requested Visits Authorized [id number] Closed Specialty Services Required 11/13/2020 12/13/2021 24 24 Question Answer PTRFR PT Evaluate and Treat Therapy options discussed with patient? Yes Location provided for therapy services is: Patient requested/Patient preferred Please select the performing region: [facility] [[id number]] # of visits: 24 Reason for Visit * Reason Comments Follow-up Pt in the for 4 week follow up. Referral Request requesting referral for PT for arm. Encounter Details Date Type Department Care Team (Latest Contact Info) Description 11/13/2020 3:15 PM CDT Office Visit [facility] Primary Care [address] [facility] [address] [place] [address] Cherelle Corcoran MD [facility] [facility] [address] [place], [place] [id number] Uncontrolled type 2 diabetes mellitus with hyperglycemia (CMS/HCC) (Primary Dx); Chronic left shoulder pain; Hypertension associated with diabetes (CMS/HCC); Hyperlipidemia associated with type 2 diabetes mellitus (CMS/HCC); Other diabetic neurological complication associated with type 2 diabetes mellitus (CMS/HCC) Social History Tobacco Use Types Packs/Day Years Used Date Smoking Tobacco: Never Smokeless Tobacco: Never Alcohol Use Standard Drinks/Week Comments Not Currently 0 (1 standard drink = 0.6 oz pur e alcohol) PHQ-2 Answer Date Recorded PHQ-2 Total Score 0 01/17/2020 Comments No Sex and Gender Information Value Date Recorded Sex Assigned at Not on file Legal Sex Female 9:03 AM TRAY SERVICE WORKER Gender Identity Female 02/08/2020 6:39 PM CDT Sexual Orientation Not on file documented as of this encounter Last Filed Vital Signs Vital Sign Reading Time Taken Comments Blood Pressure 122/68 11/13/2020 3:37 PM CDT Pulse 85 11/13/2020 3:37 PM CDT Temperature 37 ??C (98.6 ??F) 11/13/2020 3:37 PM CDT Respiratory Rate 16 11/13/2020 3:37 PM CDT Oxygen Saturation 95% 11/13/2020 3:37 PM CDT Inhaled Oxygen Concentration - - Weight 61.2 kg (135 lb) 11/13/2020 3:37 PM CDT Height - - Body Mass Index 24.69 10/16/2020 3:14 PM CDT documented in this encounter Patient Instructions * Patient Instructions* Cherelle Corcoran MD - 11/13/2020 3:15 PM CDT Images from the original note were not included. Patient Education Hypoglycemia in a Person with Diabetes DRILL PRESS SET UP OPERATOR RADIAL: Hypoglycemia is a serious condition that happens [...] ask them during your visits. ?? 2017 [employer] Information is for End User's use only and may not be sold, redistributed or otherwise used for commercial purposes. All illustrations and images included in CareNotes?? are the copyrighted property of [employer]. or [employer]. The above information is an domestic maid only. It is not intended as medical advice for individual conditions or treatments. Talk to your doctor, nurse or pharmacist before following any medical regimen to see if it is safe and effective for you. documented in this encounter Ordered Prescriptions Prescription Sig Dispense Quantity Refills Last Filled Start Date End Date empagliflozin (JARDIANCE) 10 mg tabletIndications:t ype 2 diabetes mellitus Take 1 tablet (10 mg total) by mouth daily before breakfast 30 tablet 1 11/13/2020 1 lancets miscIndications:Unc ontrolled type 2 diabetes mellitus with hyperglycemia (HCC) Check blood sugar up to 3 times a day 100 each 3 11/13/2020 3 insulin glargine (LANTUS, BASAGLAR, SEMGLEE) 100 unit/mL (3 mL) pen for injectionIndication s:Uncontrolled type 2 diabetes mellitus with hyperglycemia (HCC) Inject 47 Units under the skin daily 5 pen 1 11/13/2020 1 documented in this encounter Progress Notes * Cherelle Corcoran MD - 11/13/2020 3:15 PM CDT Images from the original note were not included. Assessment/Plan: Assessment/Plan Diagnoses and all orders for this visit: Uncontrolled type 2 diabetes mellitus with hyperglycemia (CMS/HCC) (Primary) Assessment & Plan: Uncontrolled Blood sugar 197 today ~4h after eating. Will start jardiance for post prandial coverage Continue lantus to 47 units Continue trulicity 3mg weekly Discussed hypoglycemia precautions Orders: - POCT glucose - insulin glargine (LANTUS, BASAGLAR, SEMGLEE) 100 unit/mL (3 mL) pen for injection; Inject 47 Units under the skin daily - lancets misc; Check blood sugar up to 3 times a day - empagliflozin (JARDIANCE) 10 mg tablet; Take 1 tablet (10 mg total) by mouth daily before breakfast Chronic left shoulder pain - Ambulatory referral order to Physical Therapy -; Future Hypertension associated with diabetes ([facility]/HCC) Comments: Bp at goal Continue 10mg lisinopril Hyperlipidemia associated with type 2 diabetes mellitus (CMS/HCC) Comments: Continue 40mg atorvastatin Other diabetic neurological complication associated with type 2 diabetes mellitus ([facility]/HCC) Comments: Gabapentin 400mg qhs F/u1 month or sooner as needed if symptoms not improving or worsen. Strict return/ED precautions discussed. My total encounter time on 11/13/2020 was 40 minutes which was spent in the activities [...] presents with ??? Follow-up Pt in the for 4 week follow up. ??? Referral request requesting referral for PT for arm. chronic L shoulder pain Diabetes mellitus Medications:??3mg trulicity weekly, 47 units lantus daily Fasting blood sugar:??unsure, didn't bring glucometer no??hypoglycemia episodes ?? Neuropathy: taking 400mg gabapentin nightly, has trouble taking during the day, seems to be worsening, but doesn't want to increase gabapentin. CKD: seeing nephro?? Hypertension: on 10mg lisinopril Hyperlipidemia: on 40mg atorvastatin Review of Systems Musculoskeletal: Positive for arthralgias. Neurological: Positive for numbness. Objective: Vital signs were reviewed. Vitals: 11/13/20 1537 BP: 122/68 BP Location: Left arm Patient Position: Sitting Pulse: 85 Resp: 16 Temp: 37 ??C (98.6 ??F) TempSrc: Tympanic SpO2: 95% Weight: 61.2 kg (135 lb) Physical Exam Gen: NAD, comfortable, appears as [...] Plan Note - Cherelle Corcoran MD - 11/13/2020 4:14 PM CDTAssociated Problem(s): Type 2 diabetes mellitus with diabetic neuropathy, with long-term current use of insulin (HCC) Uncontrolled Blood sugar 197 today ~4h after eating. Will start jardiance for post prandial coverage Continue lantus to 47 units Continue trulicity 3mg weekly Discussed hypoglycemia precautions documented in this encounter Plan of Treatment Upcoming Encounters Date Type Department Care Team (Latest Contact Info) Description 07/13/2024 9:00 AM TRAY SERVICE WORKER Hospital Encounter [facility] [address] [place] [address] Jaya Grier MD [address] [address] [place] [id number] 07/13/2024 9:00 AM TRAY SERVICE WORKER - 07/13/2024 9:30 AM TRAY SERVICE WORKER Surgery [facility] [address] [place] [address] Jaya Grier MD [address] [place] [address] ESOPHAGOGASTRODUODENOSCOPY Scheduled Procedures Name Priority Associated Diagnoses Date/Ti de ESOPHAGOGASTRODUODENOSCOPY Anemia, unspecified type Gastritis without bleeding, unspecified chronicity, unspecified gastritis type 07/13/2024 9:00 AM TRAY SERVICE WORKER COLONOSCOPY Iron deficiency anemia due to chronic blood loss Scheduled Referrals Name Type Priority Associated Diagnoses Order Schedule Ambulatory referral order to Physical Therapy - Outpatient Referral Routine Chronic left shoulder pain Expected: 11/27/2020 (Approximate), Expires: 11/13/2021 documented as of this encounter Procedures Procedure Name Priority Date/Time Associated Diagnosis Comments POCT GLUCOSE Routine 11/13/2020 3:48 PM CDT Uncontrolled type 2 diabetes mellitus with hyperglycemia (CMS/HCC) documented in this encounter Results * (ABNORMAL) POCT glucose (11/13/2020 3:48 PM CDT) Glucose Blood, POC 197 mg/dL Blood specimen (specimen) 11/13/2020 3:48 PM CDT Cherelle Corcoran MD POINT OF CARE GOMEZ T ORDERABLES Final Result documented in this encounter Visit Diagnoses Diagnosis Uncontrolled type 2 diabetes mellitus with hyperglycemia (HCC)- Primary Chronic left shoulder pain Pain in joint, shoulder region Hypertension associated with diabetes (HCC) Unspecified essential hypertension Hyperlipidemia associated with type 2 diabetes mellitus (HCC) Other diabetic neurological complication associated with type 2 diabetes mellitus (HCC) Anemia, unspecified type Gastritis without bleeding, unspecified chronicity, unspecified gastritis type documented in this encounter Discontinued Medications Medication Sig Discontinue Reason Start Date End Da te insulin glargine (LANTUS, BASAGLAR) 100 unit/mL (3 mL) pen for injectionIndications:Uncon trolled type 2 diabetes mellitus with hyperglycemia (HCC) Inject 45 Units under the skin daily Reorder 10/02/2020 11/13/2020 documented as of this encounter Additional Health Concerns Infection Onset Date Last Indicated Resolved Time MRSA 01/06/2020 01/06/2020 02/06/2021 5:00 AM CDT documented as of this encounter Care Teams Product Development Chemist Relationship Specialty Start Date End Date Cherelle Corcoran MD PCP - General Family Medicine 08/30/19 Mark Queen MD Consulting Physician Infectious Diseases 01/10/20 documented as of this encounter
--- OUTSIDE RECORDS SUMMARY | 2024-07-04 04:20 | XMS_ITS | Encounter Summary ---
Author Organization [facility] Address [address] [facility] [address] [place] [address] Care Team Providers Care Process Controller Name Role Phone Cherelle Corcoran MD Primary Care Pro vider Mark Queen MD Unavailable [phone] Xenia Padilla LPN Unavailable [phone] Sarahy Schmidt LPN Unavailable [phone] Brandie Callejas Unavailable Unavail able Xenia Padilla LPN Unavailable [phone] Samples, Melania Joel RN Unavailable Anam Costa LCSW Unavailable Unavailabl e Samples, Melania Joel RN Unavailable Rudolph Welch MD Unavailable [phone] Markie Ryan MD Unavailable [phone] Nadege Ramírez RN Unavailable Dulce Vega RN Unavailable Jimbo Strauss MD Unavailable Jaya Grier MD Unavailable Encounter Details Date Type Department Care Team (Late st Contact Info) Description 05/31/2020 Telephone [facility] Primary Care [address] [facility] [address] [place] [address] Cherelle Corcoran MD [address] [facility] [address] [place] [address] Social History Tobacco Use [...] from doctor or pharmacy Often 01/20/2024 [facility] Utilities Answer Date Recorded [...] file Legal Sex Female 9:03 AM TIRE MAKER Gender Identity Female 02/08/2020 6:39 PM CDT Sexual Orientation Not on file documented as of this encounter Ordered Prescriptions Prescription Sig Dispense Quantity Refills Last Filled Start Date End Date Raghu Pierce U-100 Insulin 100 unit/mL (3 mL) insulin penIndications:Unco ntrolled type 2 diabetes mellitus with hyperglycemia (HCC) Inject 34 Units under the skin nightly 10 pen 1 05/31/2020 0 documented in this encounter Miscellaneous Notes * Telephone Encounter - Anshu Platt MA - 05/02/2024 3:28 PM CST Error. System will not close out encounter. MAKER * Telephone Encounter - Anshu Platt MA - 10/12/2020 4:16 PM CDT Error. * Telephone Encounter - Anshu Platt MA - 05/31/2020 5:02 PM CST Rx refill MAKER documented in this encounter Plan of Treatment Upcoming Encounters Date Type Department Care Team (Latest Contact Info) Description 07/13/2024 9:00 AM TIRE MAKER Hospital Encounter [facility] [address] [place] [address] Jaya Grier MD [address] [place] [address] 07/13/2024 9:00 AM TIRE MAKER - 07/13/2024 9:30 AM TIRE MAKER Surgery [facility] [address] [place] [address] Jaya Grier MD [address] [facility] [place] [address] ESOPHAGOGASTRODUODENOSCOPY Scheduled Procedures Name Priority Associated Diagnoses Date/Ti me ESOPHAGOGASTRODUODENOSCOPY Anemia, unspecified type Gastritis without bleeding, unspecified chronicity, unspecified gastritis type 07/13/2024 9:00 AM TIRE MAKER COLONOSCOPY Iron deficiency anemia due to chronic blood loss documented as of this encounter Visit Diagnoses Diagnosis Uncontrolled type 2 diabetes mellitus with hyperglycemia (HCC) Anemia, unspecified type Gastritis without bleeding, unspecified chronicity, unspecified gastritis type documented in this encounter Discontinued Medications Medication Sig Discontinue Reason Start Date End Da te Raghu Pierce U-100 Insulin 100 unit/mL (3 mL) insulin penIndications:Uncontroll ed type 2 diabetes mellitus with hyperglycemia (HCC) Inject 34 Units under the skin nightly Reorder 02/14/2020 05/31/2020 documented as of this encounter Additional Health Concerns Infection Onset Date Last Indicated Resolved Time MRSA 01/06/2020 01/06/2020 02/06/2021 5:00 AM CDT COVID: Suspected 12/10/2020 12/10/2020 12/24/2020 3:05 AM CDT COVID19 08/13/2021 08/13/2021 08/24/2021 3:05 AM TIRE MAKER COVID: Recovered Comment:Added based on recent COVID infection. 08/24/2021 08/26/2021 12/22/2021 3:05 AM C DT COVID: Suspected Comment:11/15/2021 pt is covid recovered 11/15/2021 11/15/2021 11/15/2021 3:32 PM C DT COVID: Suspected 11/15/2021 11/16/2021 11/16/2021 1:45 AM CDT Human metapneumovirus, conta ct + droplet 11/16/2021 11/16/2021 11/30/2021 3:05 AM C DT COVID: Suspected 05/08/2022 05/08/2022 05/08/2022 4:26 PM TIRE MAKER COVID: Suspected 06/19/2022 06/19/2022 06/19/2022 12:37 PM TIRE MAKER COVID: Suspected 08/01/2022 08/01/2022 08/01/2022 2:28 PM TIRE MAKER COVID: Suspected 10/02/2022 10/02/2022 10/02/2022 8:14 PM CDT MRSA Comment:Toe 11/08/22, 12/12/22 11/08/2022 12/12/2022 06/10/2023 3:05 AM TIRE MAKER COVID: Suspected 12/08/2022 12/08/2022 12/08/2022 8:17 PM CDT COVID: Suspected 07/27/2023 07/27/2023 07/28/2023 12:57 AM TIRE MAKER COVID: Suspected 10/29/2023 10/30/2023 10/30/2023 10:59 AM CDT 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 12/19/2023 12/19/2023 3:58 PM CDT 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 12/29/2023 06/26/2024 3:05 AM TIRE MAKER COVID: Suspected 04/19/2024 04/19/2024 04/20/2024 12:44 AM CDT documented as of this encounter Care Teams Process Controller Relationship Specialty Start Date End Date Cherelle Corcoran MD PCP - General Family Medicine 08/30/19 Mark Queen MD Consulting Physician Infectious Diseases 01/10/20 Xenia Padilla LPN Deck Scaler 09/19/21 09/19/21 Sarahy Schmidt LPN [address] [facility] [address] [place] [address] ACO Care Unit Supervisor 11/27/21 12/25/21 Brandie Callejas Patient Vp Product Marketing 06/20/22 06/22/22 Xenia Padilla LPN [address] [place] [address] [address] [place] [address] Deck Scaler 06/24/22 06/24/22 Samples, Melania Joel RN [address] [place] [address] [address] [place] [address] Deck Scaler 07/22/22 08/21/22 Anam Costa LCSW [address] [place] [address] [address] [place] [address] Medical Doctor 08/08/22 02/18/23 Samples, Melania Joel RN [address] [place] [address] [address] [place] [address] Deck Scaler 08/22/22 12/07/22 Rudolph Welch MD [address] [facility] [address] [place] [address] Consulting Physician Infectious Diseases 12/05/22 Markie Ryan MD [address] [facility] [address] [place] [address] Consulting Physician Nephrology 12/05/22 Nadege Ramírez RN [address] [place] [address] [address] [place] [address] Deck Scaler 01/20/23 02/23/23 Dulce Vega, ALIREZA [address] [place] [address] [address] [place] [address] Deck Scaler 10/07/23 05/03/24 [place] [address] [facility] [address] [place] [address] Consulting Physician Nephrology 10/22/23 Jaya Grier MD [address] [facility] [place] [address] Consulting Physician Gastroenterology 02/01/24 documented as of this encounter
--- OUTSIDE RECORDS SUMMARY | 2024-07-04 04:20 | XMS_ITS | Encounter Summary ---
Author Organization [facility] Address [address] [place] [address] Care Team Providers Care Packaging Assembler Name Role Phone Cherelle Corcoran MD Primary Care Pro vider Mark Queen MD Unavailable [phone] Encounter Details Date Type Department Care Team (Latest Contact Info) Description 06/18/2020 9:55 AM GLASS INSPECTOR - 06/18/2020 11:59 PM GLASS INSPECTOR Hospital Encounter [facility] [address] [place] [address] Agus Golden, DPM [address] [place] [address] Discharge Disposition: Discharge to home or self [...] file Legal Sex Female 9:03 AM GLASS INSPECTOR Gender Identity Female 02/08/2020 6:39 PM CDT Sexual Orientation Not on file documented as of this encounter Medications at Time of Discharge ferrous sulfate 325 mg (65 mg of elemental iron) tabletIndications: Iron Deficiency Anemia Take 1 tablet (325 mg total) by mouth daily with breakfast 30 tablet 11 01/11/2020 01/11/20 21 Accu-Chek Sangita Plus test strp stripIndications:U ncontrolled type 2 diabetes mellitus with hyperglycemia (HCC) Use to check blood sugars 3-4 times daily. 450 each 1 01/20/2020 08/10/19 21 aspirin 325 mg tabletIndications: Pain Take 325 mg by mouth every 6 (six) hours as needed for pain. Indications: pain 02/22/20 21 atorvastatin (LIPITOR) 20 mg tabletIndications: Hyperlipidemia associated with type 2 diabetes mellitus (HCC) Take 1 tablet (20 mg total) by mouth daily 90 tablet 3 04/03/2020 07/24/19 21 cephalexin (KEFLEX) 500 mg capsule TK ONE C PO Q 12 H 05/21/2020 07/24/19 21 docusate sodium (COLACE) 100 mg capsuleIndications :constipation Take 1 capsule (100 mg total) by mouth 2 (two) times a day as needed for constipation 01/10/2020 10/03/19 21 dulaglutide (TRULICITY) 0.75 mg/0.5 mL pen injector Inject 0.5 mL (0.75 mg total) under the skin once a week 2 mL 05/24/2020 07/09/19 21 insulin glargine (LANTUS,BASAGLAR) 100 unit/mL (3 mL) insulin penIndications:Unc ontrolled type 2 diabetes mellitus with hyperglycemia (HCC) Inject 42 Units under the skin daily 5 pen 3 06/01/2020 10/03/19 21 lisinopriL (PRINIVIL,ZESTRIL) 10 mg tabletIndications: Essential hypertension Take 1 tablet (10 mg total) by mouth daily 30 tablet 5 12/09/2019 10/03/19 21 meclizine (ANTIVERT) 25 mg tablet TK 1 T PO TID PRF DIZZINESS 03/25/2020 12/11/19 21 omeprazole (PriLOSEC) 20 mg capsule TAKE 1 CAPSULE BY MOUTH DAILY FOR 8 WEEKS THEN 1 CAPSULE EVERY OTHER DAY FOR 2 WEEKS THEN STOP 81 capsule 04/03/2020 07/24/19 21 pen needle, diabetic 32 gauge x 3/16 [...] Contact Info) Description 07/13/2024 9:00 AM GLASS INSPECTOR Hospital Encounter [facility] [address] [place] [address] Jaya Grier MD [facility] [facility] [address] GA[address] [place] [address] 07/13/2024 9:00 AM GLASS INSPECTOR - 07/13/2024 9:30 AM GLASS INSPECTOR Surgery [facility] [address] [place] [address] Jaya Grier MD [address] [place] [address] [address] [place] [address] ESOPHAGOGASTRODUODENOSCOPY Scheduled Procedures Name Priority Associated Diagnoses Date/Ti wy ESOPHAGOGASTRODUODENOSCOPY Anemia, unspecified type Gastritis without bleeding, unspecified chronicity, unspecified gastritis type 07/13/2024 9:00 AM GLASS INSPECTOR COLONOSCOPY Iron deficiency anemia due to chronic blood loss documented as of this encounter Visit Diagnoses Not on filedocumented in this encounter Additional Health Concerns Infection Onset Date Last Indicated Resolved Time MRSA 01/06/2020 01/06/2020 02/06/2021 5:00 AM CDT documented as of this encounter Care Teams Packaging Assembler Relationship Specialty Start Date End Date Cherelle Corcoran MD PCP - General Family Medicine 08/30/19 Mark Queen MD Consulting Physician Infectious Diseases 01/10/20 documented as of this encounter
--- OUTSIDE RECORDS SUMMARY | 2024-07-04 04:20 | XMS_ITS | Encounter Summary ---
Author Organization [facility] Address [address] [facility] [address] [place] [address] Care Team Providers Care Datawarehouse Developer Name Role Phone Cherelle Corcoran MD Primary Care Pro vider Mark Queen MD Unavailable [phone] Reason for Visit * Reason Comments Follow-up Pt in the office for 2 week follow up. Pt states her glucose numbers have been good. Pt did bring her glucometer with her. Pt states has been feeling some nausea after taking her basaglar. Encounter Details Date Type Department Care Team (Latest Contact Info) Description 04/30/2020 11:00 AM DEPUTY BUILDING GUARD Office Visit [facility] Primary Care [address] [facility] [address] [place] [address] Cherelle Corcoran MD [address] [place] [address] [id number] Uncontrolled type 2 diabetes mellitus with hyperglycemia (CMS/HCC) (Primary Dx); Hypertension associated with diabetes (CMS/HCC); Hyperlipidemia associated with type 2 diabetes mellitus (CMS/HCC); Ulcer of toe of right foot, with fat layer exposed (CMS/HCC); Amputation of toe of right foot (CMS/HCC) Social History Tobacco Use Types Packs/Day Years Used Date Smoking Tobacco: Never Smokeless Tobacco: Never Alcohol Use Standard Drinks/Week Comments Not Currently 0 (1 standard drink = 0.6 oz pur e alcohol) PHQ-2 Answer Date Recorded PHQ-2 Total Score 0 01/17/2020 Comments No Sex and Gender Information Value Date Recorded Sex Assigned at Not on file Legal Sex Female 9:03 AM DEPUTY BUILDING GUARD Gender Identity Female 02/08/2020 6:39 PM CDT Sexual Orientation Not on file documented as of this encounter Last Filed Vital Signs Vital Sign Reading Time Taken Comments Blood Pressure 130/70 04/30/2020 12:02 PM DEPUTY BUILDING GUARD Pulse 83 04/30/2020 11:30 AM DEPUTY BUILDING GUARD Temperature 36.9 ??C (98.5 ??F) 04/30/2020 11:[address] Respiratory Rate 16 04/30/2020 11:30 AM DEPUTY BUILDING GUARD Oxygen Saturation 99% 04/30/2020 11:30 AM DEPUTY BUILDING GUARD Inhaled Oxygen Concentration - - Weight 54.9 kg (121 lb) 04/30/2020 11:30 AM DEPUTY BUILDING GUARD Height 157.5 cm (5' 2 ) 04/30/2020 11:30 AM DEPUTY BUILDING GUARD Body Mass Index 22.13 04/30/2020 11:30 AM DEPUTY BUILDING GUARD documented in this encounter Patient Instructions * Patient Instructions* Cherelle Corcoran MD - 04/30/2020 11:00 AM DEPUTY BUILDING GUARD Images from the original note were not included. Patient Education Hypoglycemia in a Person with Diabetes GENERAL LABORER: Hypoglycemia is a serious condition that happens [...] ask them during your visits. ?? 2017 [employer] / [employer] Information is for End User's use only and may not be sold, redistributed or otherwise used for commercial purposes. All illustrations and images included in CareNotes?? are the copyrighted property of [employer] or [employer]. The above information is an cafeteria aide only. It is not intended as medical advice for individual conditions or treatments. Talk to your doctor, nurse or pharmacist before following any medical regimen to see if it is safe and effective for you. TY BUILDING GUARD documented in this encounter Progress Notes * Cherelle Corcoran MD - 04/30/2020 11:00 AM CST Images from the original note were not included. Assessment/Plan: Assessment/Plan Diagnoses and all orders for this visit: Uncontrolled type 2 diabetes mellitus with hyperglycemia (CMS/HCC) (Primary) Assessment & Plan: Blood sugar improved on 40 units basaglar qhs, continue Again advised to schedule eye exam Hypertension associated with diabetes (CMS/HCC) Assessment & Plan: BP borderline Continue 10mg lisinopril Continue to monitor Hyperlipidemia associated with type 2 diabetes mellitus (CMS/HCC) Assessment & Plan: On atorvastatin 20mg Ulcer of toe of right foot, with fat layer exposed (CMS/HCC) Assessment & Plan: Following with wound clinic Amputation of toe of right foot (CMS/HCC) Assessment & Plan: Stable F/u 1 month or sooner as needed. Strict return/ED precautions discussed. Subjective: Barbara Chakraborty is a 69 y.o. female here for follow up diabetes mellitus HPI Chief Complaint Patient presents with ??? Follow-up Pt in the office for 2 week follow up. Pt states her glucose numbers have been good. Pt did bring her glucometer with her. Pt states has been feeling some nausea after taking her basaglar. Diabetes mellitus Medications: 40 units basaglar, 1.2mg victoza daily Fasting blood sugar: 147-153 2h post prandial blood sugar: 101-167 Did have 449 fasting day after halloween Did have one low of 81, 1 minute later came up to 95 Hypertension Medications: 10mg lisinopril R foot ulcer: seeing wound clinic q2w Review of Systems Constitutional: Negative for fever. HENT: Negative for sore throat. Respiratory: Negative for cough and shortness of breath. Gastrointestinal: Negative for diarrhea and vomiting. Musculoskeletal: Negative for myalgias. Objective: Vital signs were reviewed. Vitals: 04/30/20 1130 04/30/20 1202 BP: 128/88 130/70 BP Location: Left arm Left arm Patient Position: Sitting Sitting Pulse: 83 Resp: 16 Temp: 36.9 ??C (98.5 ??F) TempSrc: Tympanic SpO2: 99% Weight: 54.9 kg (121 lb) Height: 157.5 cm (5' 2 ) Physical Exam Gen: NAD, comfortable, appears as stated age Eyes: no conjunctival injection, EOMI ENMT: external ears symmetric, nares patent CV: Regular rate Pulm: no increased work of breathing Skin: no rashes or nodules, warm and dry, ulcer on plantar R great toe without erythema or drainage MSK/Neuro: symmetric limb movement, s/p R 4th toe amputation Psych: alert and oriented to person/place Cherelle Corcoran MD TY BUILDING GUARD documented in this encounter Miscellaneous Notes * Assessment & Plan Note - Cherelle Corcoran MD - 04/30/2020 1:00 PM CSTAssociated Problem(s): Mixed hyperlipidemia On atorvastatin 20mg TY BUILDING GUARD * Assessment & Plan Note - Cherelle Corcoran MD - 04/30/2020 1:00 PM CSTAssociated Problem(s): History of amputation of toe (CMS/HCC) (HCC) Stable TY BUILDING GUARD * Assessment & Plan Note - Cherelle Corcoran MD - 04/30/2020 12:31 PM CSTAssociated Problem(s): Primary hypertension BP borderline Continue 10mg lisinopril Continue to monitor TY BUILDING GUARD * Assessment & Plan Note - Cherelle Corcoran MD - 04/30/2020 12:31 PM CSTAssociated Problem(s): Ulcer of toe of right foot, with fat layer exposed (HCC) (Resolved 08/28/2020) Following with wound clinic TY BUILDING GUARD * Assessment & Plan Note - Cherelle Corcoran MD - 04/30/2020 12:27 PM CSTAssociated Problem(s): Type 2 diabetes mellitus with diabetic neuropathy, with long-term current use of insulin (HCC) Blood sugar improved on 40 units basaglar qhs, continue Again advised to schedule eye exam TY BUILDING GUARD documented in this encounter Plan of Treatment Upcoming Encounters Date Type Department Care Team (Latest Contact Info) Description 07/13/2024 9:00 AM DEPUTY BUILDING GUARD Hospital Encounter [facility] [address] [place] [address] Jaya Grier MD [address] [place] [address] [address] [place] [address] 07/13/2024 9:00 AM DEPUTY BUILDING GUARD - 07/13/2024 9:30 AM DEPUTY BUILDING GUARD Surgery [facility] [address] [place] [address] Jaya Grier MD [facility] [address] [place] [address] ESOPHAGOGASTRODUODENOSCOPY Scheduled Procedures Name Priority Associated Diagnoses Date/Ti md ESOPHAGOGASTRODUODENOSCOPY Anemia, unspecified type Gastritis without bleeding, unspecified chronicity, unspecified gastritis type 07/13/2024 9:00 AM DEPUTY BUILDING GUARD COLONOSCOPY Iron deficiency anemia due to chronic blood loss documented as of this encounter Visit Diagnoses Diagnosis Uncontrolled type 2 diabetes mellitus with hyperglycemia (HCC)- Primary Hypertension associated with diabetes (HCC) Unspecified essential hypertension Hyperlipidemia associated with type 2 diabetes mellitus (HCC) Ulcer of toe of right foot, with fat layer exposed (HCC) Amputation of toe of right foot (CMS/HCC) (HCC) Anemia, unspecified type Gastritis without bleeding, unspecified chronicity, unspecified gastritis type documented in this encounter Additional Health Concerns Infection Onset Date Last Indicated Resolved Time MRSA 01/06/2020 01/06/2020 02/06/2021 5:00 AM CDT documented as of this encounter Care Teams Datawarehouse Developer Relationship Specialty Start Date End Date Cherelle Corcoran MD PCP - General Family Medicine 08/30/19 Mark Queen MD Consulting Physician Infectious Diseases 01/10/20 documented as of this encounter
--- OUTSIDE RECORDS SUMMARY | 2024-07-04 04:20 | XMS_ITS | Encounter Summary ---
Author Organization [facility] Address [address] [facility] [address] [place] [address] Care Team Providers Care Chart Snatcher Name Role Phone Cherelle Corcoran MD Primary Care Pro vider Mark Queen MD Unavailable [phone] Encounter Details Date Type Department Care Team (Late st Contact Info) Description 07/10/2020 Telephone [facility] Primary Care [address] [facility] [address] [place] [address] Cherelle Corcoran MD [facility] [address] [place] [address] Social History Tobacco Use Types [...] file Legal Sex Female 9:03 AM STUDENT ACCOUNTS COORDINATOR Gender Identity Female 02/08/2020 6:39 PM CDT Sexual Orientation Not on file documented as of this encounter Miscellaneous Notes * Telephone Encounter - Natacha London MA - 07/10/2020 10:54 AM CST Sent portal mes. ENT ACCOUNTS COORDINATOR * Telephone Encounter - Cherelle Corcoran MD - 07/10/2020 6:54 AM CST Due for follow up diabetes mellitus, please schedule. thanks ENT ACCOUNTS COORDINATOR documented in this encounter Plan of Treatment Upcoming Encounters Date Type Department Care Team (Latest Contact Info) Description 07/13/2024 9:00 AM STUDENT ACCOUNTS COORDINATOR Hospital Encounter [facility] [address] [place] [address] Jaya Grier MD [address] [place] [address] [address] [place] [address] 07/13/2024 9:00 AM STUDENT ACCOUNTS COORDINATOR - 07/13/2024 9:30 AM STUDENT ACCOUNTS COORDINATOR Surgery [facility] [address] [place] [address] Jaya Grier MD [address] [place] [address] [address] [place] [address] ESOPHAGOGASTRODUODENOSCOPY Scheduled Procedures Name Priority Associated Diagnoses Date/Ti ar ESOPHAGOGASTRODUODENOSCOPY Anemia, unspecified type Gastritis without bleeding, unspecified chronicity, unspecified gastritis type 07/13/2024 9:00 AM STUDENT ACCOUNTS COORDINATOR COLONOSCOPY Iron deficiency anemia due to chronic blood loss documented as of this encounter Visit Diagnoses Not on filedocumented in this encounter Additional Health Concerns Infection Onset Date Last Indicated Resolved Time MRSA 01/06/2020 01/06/2020 02/06/2021 5:00 AM CDT documented as of this encounter Care Teams Chart Snatcher Relationship Specialty Start Date End Date Cherelle Corcoran MD PCP - General Family Medicine 08/30/19 Mark Queen MD Consulting Physician Infectious Diseases 01/10/20 documented as of this encounter
--- OUTSIDE RECORDS SUMMARY | 2024-07-04 04:20 | XMS_ITS | Encounter Summary ---
Author Organization [facility] Healthcare Address [address] [place] [address] Care Team Providers Care Dairy Equipment Mechanic Name Role Phone Cherelle Corcoran MD Primary Care Pro vider Mark Queen MD Unavailable [phone] Encounter Details Date Type Department Care Team (Late st Contact Info) Description 06/26/2020 Telephone [facility] Nutrition Counseling and Diabetic Education [id number] [place] [id number] Social History Tobacco Use Types Packs/Day Years Used Date Smoking Tobacco: Never Smokeless Tobacco: Never Alcohol Use Standard Drinks/Week Comments Not Currently 0 (1 standard drink = 0.6 oz pur e alcohol) PHQ-2 Answer Date Recorded PHQ-2 Total Score 0 01/17/2020 Comments No Sex and Gender Information Value Date Recorded Sex Assigned at Not on file Legal Sex Female 9:03 AM COAT IRONER HAND Gender Identity Female 02/08/2020 6:39 PM CDT Sexual Orientation Not on file documented as of this encounter Miscellaneous Notes * Telephone Encounter - Evelyn Barron RD - 06/26/2020 2:37 PM COAT IRONER HAND Spoke with pt's daughter about alternative options to outpatient nutrition counseling apt 06/27 @ 2:30 pm d/t COVID-[address]. Offered to do apt over the phone, Zoom, or reschedule for 8 weeks out. Pt's daughter reschedule apt for 07/02 @ 8:30 am. Confirmed e-mail address to send Zoom link prior to apt time. Evelyn Barron MS,RD,LD IRONER HAND documented in this encounter Plan of Treatment Upcoming Encounters Date Type Department Care Team (Latest Contact Info) Description 07/13/2024 9:00 AM COAT IRONER HAND Hospital Encounter [facility] [address] [place] [address] Jaya Grier MD [address] [place] [address] DR GAINES [address] [place] [address] 07/13/2024 9:00 AM COAT IRONER HAND - 07/13/2024 9:30 AM COAT IRONER HAND Surgery [facility] [address] [place] [address] Jaya Grier MD [address] [place] [address] DR GAINES [address] [place] [address] ESOPHAGOGASTRODUODENOSCOPY Scheduled Procedures Name Priority Associated Diagnoses Date/Ti me ESOPHAGOGASTRODUODENOSCOPY Anemia, unspecified type Gastritis without bleeding, unspecified chronicity, unspecified gastritis type 07/13/2024 9:00 AM COAT IRONER HAND COLONOSCOPY Iron deficiency anemia due to chronic blood loss documented as of this encounter Visit Diagnoses Not on filedocumented in this encounter Additional Health Concerns Infection Onset Date Last Indicated Resolved Time MRSA 01/06/2020 01/06/2020 02/06/2021 5:00 AM CDT documented as of this encounter Care Teams Dairy Equipment Mechanic Relationship Specialty Start Date End Date Cherelle Corcoran MD PCP - General Family Medicine 08/30/19 Mark Queen MD Consulting Physician Infectious Diseases 01/10/20 documented as of this encounter
--- OUTSIDE RECORDS SUMMARY | 2024-07-04 04:20 | XMS_ITS | Encounter Summary ---
Author Organization [facility] Healthcare Address [address] [place] [address] Care Team Providers Care Curing Press Maintainer Name Role Phone Cherelle Corcoran MD Primary Care Pro vider Mark Queen MD Unavailable [phone] Encounter Details Date Type Department Care Team (Latest Contact Info) Description 04/03/2020 8:51 AM CDT - 04/03/2020 11:59 PM CDT Hospital Encounter [facility] [address] [place] [address] Anat Pelayo, DPM [address] [place] [address] Discharge Disposition: Discharge to home or self [...] on file Legal Sex Female 9:03 AM TRACK LABORER Gender Identity Female 02/08/2020 6:39 PM CDT [...] blood sugars 3-4 times daily. 450 each 01/20/2020 08/10/19 21 aspirin 325 mg tabletIndications: Pain Take 325 mg by mouth every 6 (six) hours as needed for pain. Indications: pain 02/22/20 21 atorvastatin (LIPITOR) 20 mg tabletIndications: Hyperlipidemia associated with type 2 diabetes mellitus (HCC) Take 1 tablet (20 mg total) by mouth daily 90 tablet 3 04/03/2020 07/24/19 21 Basaglar KwikPen U-100 Insulin 100 unit/mL (3 mL) insulin penIndications:Unc ontrolled type 2 diabetes mellitus with hyperglycemia (HCC) Inject 34 Units under the skin nightly 10 pen 1 02/14/2020 05/31/20 20 docusate sodium (COLACE) 100 mg capsuleIndications :constipation Take 1 capsule (100 mg total) by mouth 2 (two) times a day as needed for constipation 01/10/2020 10/03/19 21 lisinopriL (PRINIVIL,ZESTRIL) 10 mg tabletIndications: [...] 3 times a day 09/12/2017 12/01/19 23 Victoza 2-Vivek 0.6 mg/0.1 mL (18 mg/3 mL) injectionIndicatio ns:Uncontrolled type 2 diabetes mellitus with hyperglycemia (HCC) Inject 1.2 mg under the skin daily 18 mL 1 01/17/2020 05/24/20 20 documented as of this encounter Discharge Disposition Disposition Code Departure Means Destination Discharge to home or self care documented in this encounter Plan of Treatment Upcoming Encounters Date Type Department Care Team (Latest Contact Info) Description 07/13/2024 9:00 AM TRACK LABORER Hospital Encounter [facility] [address] [place] [address] Jaya Grier MD [address] [place] [address] DR GAINES [address] [place] [address] 07/13/2024 9:00 AM TRACK LABORER - 07/13/2024 9:30 AM TRACK LABORER Surgery [facility] [address] [place] [address] Jaya Grier MD [address] [place] [address] DR GAINES [address] [place] [address] ESOPHAGOGASTRODUODENOSCOPY Scheduled Procedures Name Priority Associated Diagnoses Date/Ti ma ESOPHAGOGASTRODUODENOSCOPY Anemia, unspecified type Gastritis without bleeding, unspecified chronicity, unspecified gastritis type 07/13/2024 9:00 AM TRACK LABORER COLONOSCOPY Iron deficiency anemia due to chronic blood loss documented as of this encounter Visit Diagnoses Not on filedocumented in this encounter Additional Health Concerns Infection Onset Date Last Indicated Resolved Time MRSA 01/06/2020 01/06/2020 02/06/2021 5:00 AM CDT documented as of this encounter Care Teams Curing Press Maintainer Relationship Specialty Start Date End Date Cherelle Corcoran MD PCP - General Family Medicine 08/30/19 Mark Queen MD Consulting Physician Infectious Diseases 01/10/20 documented as of this encounter
--- OUTSIDE RECORDS SUMMARY | 2024-07-04 04:20 | XMS_ITS | Encounter Summary ---
Author Organization [facility] Address [address] [facility] [address] [place] [address] Care Team Providers Care Senior Clinical Data Analyst Name Role Phone Cherelle Corcoran MD Primary Care Pro vider Mark Queen MD Unavailable [phone] Encounter Details Date Type Department Care Team (Late st Contact Info) Description 05/31/2020 Telephone [facility] Primary Care [address] [facility] [address] [place] [address] Cherelle Corcoran MD [facility] [facility] [address] [place] [address] Social History Tobacco Use Types Packs/Day Years Used Date Smoking Tobacco: Never Smokeless Tobacco: Never Alcohol Use Standard Drinks/Week Comments Not Currently 0 (1 standard drink = 0.6 oz pur e alcohol) PHQ-2 Answer Date Recorded PHQ-2 Total Score 0 01/17/2020 Comments No Sex and Gender Information Value Date Recorded Sex Assigned at Not on file Legal Sex Female 9:03 AM LODGING FACILITIES ATTENDANT Gender Identity Female 02/08/2020 6:39 PM CDT Sexual Orientation Not on file documented as of this encounter Miscellaneous Notes * Telephone Encounter - Anshu Platt MA - 06/01/2020 9:21 AM CST LM on VM that Rx was called in. ING FACILITIES ATTENDANT * Telephone Encounter - Cherelle Corcoran MD - 06/01/2020 6:06 AM CST New order sent with higher dose. ING FACILITIES ATTENDANT * Telephone Encounter - Anshu Platt MA - 05/31/2020 4:45 PM CST Daughter also wanting to know if Lantis Rx will be increased due to her recent high labs on last visit. Note: Lantis replaced basaglar her pm meds. ING FACILITIES ATTENDANT * Telephone Encounter - Anshu Platt MA - 05/31/2020 4:16 PM CST Pt's daughter called. They had problem refilling her Lantis pen. She is on her last pen now. Daughter requests CB at [phone]. ING FACILITIES ATTENDANT ING FACILITIES ATTENDANT documented in this encounter Plan of Treatment Upcoming Encounters Date Type Department Care Team (Latest Contact Info) Description 07/13/2024 9:00 AM LODGING FACILITIES ATTENDANT Hospital Encounter [facility] [address] [place] [address] Jaya Grier MD [facility] [facility] [address] GAINES [address] [place] [address] 07/13/2024 9:00 AM LODGING FACILITIES ATTENDANT - 07/13/2024 9:30 AM LODGING FACILITIES ATTENDANT Surgery [facility] [address] [place] [address] Jaya Grier MD [address] [facility] [address] [place] [address] ESOPHAGOGASTRODUODENOSCOPY Scheduled Procedures Name Priority Associated Diagnoses Date/Ti me ESOPHAGOGASTRODUODENOSCOPY Anemia, unspecified type Gastritis without bleeding, unspecified chronicity, unspecified gastritis type 07/13/2024 9:00 AM LODGING FACILITIES ATTENDANT COLONOSCOPY Iron deficiency anemia due to chronic blood loss documented as of this encounter Visit Diagnoses Not on filedocumented in this encounter Additional Health Concerns Infection Onset Date Last Indicated Resolved Time MRSA 01/06/2020 01/06/2020 02/06/2021 5:00 AM CDT documented as of this encounter Care Teams Senior Clinical Data Analyst Relationship Specialty Start Date End Date Cherelle Corcoran MD PCP - General Family Medicine 08/30/19 Mark Queen MD Consulting Physician Infectious Diseases 01/10/20 documented as of this encounter
--- OUTSIDE RECORDS SUMMARY | 2024-07-04 04:20 | XMS_ITS | Encounter Summary ---
Author Organization [facility] Address [address] [place] [address] Care Team Providers Care Screener And Blender Operator Name Role Phone Cherelle Corcoran MD Primary Care Pro vider Mark Queen MD Unavailable [phone] Reason for Referral * Diagnostic Imaging (Routine) - Closed Specialty Diagnoses / Procedures Referred By Maryse lama Referred To Contact Diagnoses Acute upper back pain Procedures XR Spine Thoracic 2 Vw Cherelle Corcoran MD Phone: tel: fax: [facility] [address] [place] [phone] Referral ID Status Reason Start Date Expiration Date Visits Re quested Visits Authorized [id number] Closed 07/24/2020 08/23/2021 1 1 SPECIALTY SERVICES MANAGER Reason for Visit * Reason Comments Shoulder Pain pt c/o bilateral aniceto ulder pain. Pain radiates down arms. Back Pain pt c/o pain in one s pot on her back. Feeling like she is being pinched. Encounter Details Date Type Department Care Team (Latest Contact Info) Description 07/24/2020 1:30 PM AUTO SPECIALTY SERVICES MANAGER Office Visit [facility] Primary Care [facility] 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 (CMS/HCC); Schizophrenia, unspecified type (CMS/HCC); Hypertension associated with diabetes (CMS/HCC); Gastroesophageal reflux disease, unspecified whether esophagitis present Social History Tobacco Use Types Packs/Day Years Used Date Smoking Tobacco: Never Smokeless Tobacco: Never Alcohol Use Standard Drinks/Week Comments Not Currently 0 (1 standard drink = 0.6 oz pur e alcohol) PHQ-2 Answer Date Recorded PHQ-2 Total Score 0 01/17/2020 Comments No Sex and Gender Information Value Date Recorded Sex Assigned at Not on file Legal Sex Female 9:03 AM AUTO SPECIALTY SERVICES MANAGER Gender Identity Female 02/08/2020 6:39 PM CDT Sexual Orientation Not on file documented as of this encounter Last Filed Vital Signs Vital Sign Reading Time Taken Comments Blood Pressure 130/74 07/24/2020 1:26 PM AUTO SPECIALTY SERVICES MANAGER Pulse 82 07/24/2020 1:26 PM AUTO SPECIALTY SERVICES MANAGER Temperature 36.9 ??C (98.4 ??F) 07/24/2020 1:26 PM CS T Respiratory Rate 16 07/24/2020 1:26 PM AUTO SPECIALTY SERVICES MANAGER Oxygen Saturation 98% 07/24/2020 1:26 PM AUTO SPECIALTY SERVICES MANAGER Inhaled Oxygen Concentration - - Weight 59.9 kg (132 lb) 07/24/2020 1:26 PM AUTO SPECIALTY SERVICES MANAGER Height 157.5 cm (5' 2 ) 07/24/2020 1:26 PM AUTO SPECIALTY SERVICES MANAGER Body Mass Index 24.14 07/24/2020 1:26 PM AUTO SPECIALTY SERVICES MANAGER documented in this encounter Ordered Prescriptions Prescription Sig Dispense Quantity Refills Last Filled Start Date End Date omeprazole (PriLOSEC) 20 mg capsule Take 1 capsule (20 mg total) by mouth daily 90 capsule 07/24/2020 atorvastatin (LIPITOR) 20 mg tabletIndications:H yperlipidemia associated with type 2 diabetes mellitus (HCC) Take 1 tablet (20 mg total) by mouth daily 90 tablet 3 07/24/2020 1 dulaglutide (TRULICITY) 1.5 mg/0.5 mL pen injectorIndications :Uncontrolled type 2 diabetes mellitus with hyperglycemia ([facility]) Inject 0.5 mL (1.5 mg total) under the skin once a week 2 mL 1 07/24/2020 1 lidocaine (LIDODERM) 5 %Indications:Acute upper back pain Place 1 patch on the skin daily Apply to painful area 12 hours per day, remove for 12 hours. 30 patch 1 07/24/2020 1 atorvastatin (LIPITOR) 20 mg tabletIndications:H yperlipidemia associated with type 2 diabetes mellitus (HCC) Take 1 tablet (20 mg total) by mouth daily 90 tablet 3 07/24/2020 1 documented in this encounter Progress Notes * Cherelle Corcoran MD - 07/24/2020 1:30 PM CST Images from the original note were not included. Assessment/Plan: Assessment/Plan Diagnoses and all orders for this visit: Acute upper back pain (Primary) Comments: C/w muscle spasm vs. possible pinched nerve No red flags Pt requests XR, ordered Advise PT Orders: - lidocaine (LIDODERM) 5 %; Place 1 patch on the skin daily Apply to painful area 12 hours per day,remove for 12 hours. - Ambulatory referral order to Physical Therapy -; Future - XR Spine Thoracic 2 Vw; Future Leg swelling Comments: Recent US negative for DVT Check labs Orders: - Pro B-type natriuretic peptide; Future - Comprehensive metabolic panel; Future Hyperlipidemia associated with type 2 diabetes mellitus ([facility]) Assessment & Plan: Stressed importance of taking atorvastatin Orders: - atorvastatin (LIPITOR) 20 mg tablet; Take 1 tablet (20 mg total) by mouth daily Uncontrolled type 2 diabetes mellitus with hyperglycemia ([facility]) Assessment & Plan: Formulary change 2/2 insurance, switched to trulicity. Will increase to 1.5mg Orders: - dulaglutide (TRULICITY) 1.5 mg/0.5 mL pen injector; Inject 0.5 mL (1.5 mg total) under the skin once a week - Hemoglobin A1c; Future 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 ([facility]) Assessment & Plan: Continue gabapentin Schizophrenia, unspecified type ([facility]) Assessment & Plan: Working on getting into psychiatrist Hypertension associated with diabetes ([facility]) Assessment & Plan: Blood pressure at goal Continue lisinopril Gastroesophageal reflux disease, unspecified whether esophagitis present Assessment & Plan: Recurrent symptoms off omeprazole, restart Other orders - omeprazole (PriLOSEC) 20 mg capsule; Take 1 capsule (20 mg total) by mouth daily BMI Follow-up includes: nutrition counseling and exercise counseling. F/u 1 month or sooner as needed if symptoms not improving or worsen. Strict return/ED precautions discussed. My total encounter time on 07/24/2020 was 50 minutes which was spent in the activities documented in the note. This includes time spent prior to the visit and after the visit in direct care of the patient. This time does not include time spent in any separately reportable services. Subjective: Barbara Chakraborty is a 69 y.o. female here for shoulder pain HPI Chief Complaint Patient presents with ??? Shoulder Pain pt c/o bilateral shoulder pain. Pain radiates down arms. ??? Back Pain pt c/o pain in one spot on her back. Feeling like she is being pinched. Having bilateral leg swelling x 1 week. Seen at [facility] last night. Had negative US. Notes constant R upper back burning sharp pain radiating down arms for several days. Diabetes mellitus Medications: 42 units insulin & trulicity Fasting blood sugar: 120 in the morning, up to 300 no hypoglycemia episodes Has eye appointment scheduled in August Hyperlipidemia: never picked up atorvastatin Hypertension: on lisinopril Neuropathy: taking gabapentin tid GERD: off omeprazole, taking lots of antiacid. Had vomiting x2 last week, none this week Schizophrenia: daughter filling out pre appointment paperwork Review of Systems Cardiovascular: Positive for leg swelling. Musculoskeletal: Positive for arthralgias and back pain. Neurological: Positive for numbness (in feet). Objective: Vital signs were reviewed. Vitals: 07/24/20 1326 BP: 130/74 BP Location: Left arm Patient Position: Sitting Pulse: 82 Resp: 16 Temp: 36.9 ??C (98.4 ??F) TempSrc: Tympanic SpO2: 98% Weight: 59.9 kg (132 lb) Height: 157.5 cm (5' 2 ) Physical Exam Gen: NAD, comfortable, appears as stated age Eyes: no conjunctival injection, EOMI ENMT: external ears symmetric CV: Regular rate and rhythm Pulm: no increased work of breathing Skin: no rashes or nodules, warm and dry MSK/Neuro: symmetric limb movement, bilateral pitting edema, TTP R upper back, strength 5/5 bilateral upper extremities, sensation intact, Shoulders: no visible or palpable asymmetry, normal active and passive range of motion, normal strength on abduction, flexion, internal/external rotation and subassembler, sensation intact throughout, negative neer's/downing, apprehension, liftoff Psych: alert and oriented to person/place Cherelle Corcoran MD SPECIALTY SERVICES MANAGER documented in this encounter Miscellaneous Notes * Assessment & Plan Note - Cherelle Corcoran MD - 07/24/2020 2:06 PM CSTAssociated Problem(s): Mixed hyperlipidemia Stressed importance of taking atorvastatin SPECIALTY SERVICES MANAGER * Assessment & Plan Note - Cherelle Corcoran MD - 07/24/2020 2:06 PM CSTAssociated Problem(s): Gastroesophageal reflux disease without esophagitis Recurrent symptoms off omeprazole, restart SPECIALTY SERVICES MANAGER * Assessment & Plan Note - Cherelle Corcoran MD - 07/24/2020 2:05 PM CSTAssociated Problem(s): Primary hypertension Blood pressure at goal Continue lisinopril SPECIALTY SERVICES MANAGER * Assessment & Plan Note - Cherelle Corcoran MD - 07/24/2020 2:05 PM CSTAssociated Problem(s): Schizoaffective disorder, bipolar type (CMS/HCC) (HCC) (Deleted) Working on getting into psychiatrist SPECIALTY SERVICES MANAGER * Assessment & Plan Note - Cherelle Corcoran MD - 07/24/2020 2:05 PM CSTAssociated Problem(s): Diabetic neuropathy (HCC) (Resolved 05/16/2024) Continue gabapentin SPECIALTY SERVICES MANAGER * Assessment & Plan Note - Cherelle Corcoran MD - 07/24/2020 2:04 PM CSTAssociated Problem(s): Type 2 diabetes mellitus with diabetic neuropathy, with long-term current use of insulin (HCC) Formulary change 2/2 insurance[facility] Will increase to 1.5mg SPECIALTY SERVICES MANAGER documented in this encounter Plan of Treatment Upcoming Encounters Date Type Department Care Team (Latest Contact Info) Description 07/13/2024 9:00 AM AUTO SPECIALTY SERVICES MANAGER Hospital Encounter [facility] [address] [place] [address] Jaya Grier MD [facility] [place] [id number] 07/13/2024 9:00 AM AUTO SPECIALTY SERVICES MANAGER - 07/13/2024 9:30 AM AUTO SPECIALTY SERVICES MANAGER Surgery [facility] [address] [place] [address] Jaya Grier MD [address] [place] [address] ESOPHAGOGASTRODUODENOSCOPY Scheduled Orders Name Type Priority Associated Diagnoses Orde r Schedule Pro B-type natriuretic peptide Lab Routine Leg swelling Expected: 07/24/2020, Expires: 07/24/2021 Scheduled Procedures Name Priority Associated Diagnoses Date/Ti me ESOPHAGOGASTRODUODENOSCOPY Anemia, unspecified type Gastritis without bleeding, unspecified chronicity, unspecified gastritis type 07/13/2024 9:00 AM AUTO SPECIALTY SERVICES MANAGER COLONOSCOPY Iron deficiency anemia due to chronic blood loss documented as of this encounter Procedures Procedure Name Priority Date/Time Associated Diagnosis Comments HEMOGLOBIN A1C Routine 07/24/2020 2:52 PM AUTO SPECIALTY SERVICES MANAGER Uncontrolled type 2 diabetes mellitus with hyperglycemia ([facility]) COMPREHENSIVE METABOLIC PANEL Routine 07/24/2020 2:52 PM AUTO SPECIALTY SERVICES MANAGER Leg swelling documented in this encounter Results * (ABNORMAL) Hemoglobin A1c (07/24/2020 2:52 PM AUTO SPECIALTY SERVICES MANAGER) Hemoglobin A1c % 8.0(H) 4.0 - 5.6 % [facility] Comment: ADA 2016 GUIDELINES: ??Initial Diagnostic Criteria ? HbA1c Result: ?Interpretation: ?<5.7% ? Normal ?5.7-6.4% ?At risk for diabetes mellitus ?>=6.5% ?Consistent with diabetes mellitus ??Diabetes monitoring ? Target value (ADA Recommended) ?? <7% Blood specimen (specimen) 07/24/2020 2:52 PM AUTO SPECIALTY SERVICES MANAGER 07/24/2020 4:17 PM AUTO SPECIALTY SERVICES MANAGER Narrative Resulting Agency Comment CLI us Cherelle Corcoran MD LAB BLOOD ORDERAB LES Final Result [place] [id number] [place] [address], [facility] [phone] * (ABNORMAL) Comprehensive metabolic panel (07/24/2020 2:52 PM AUTO SPECIALTY SERVICES MANAGER) Sodium 140 135 - 145 mmol/L [facility] Potassium 4.5 3.3 - 5.1 mmol/L [facility] Chloride 100 96 - 108 mmol/L [facility] Carbon Dioxide 31 22 - 32 mmol/L [facility] Anion Gap 9 7 - 16 [facility] Glucose 178(H) 70 - 100 mg/dL [facility] BUN 28(H) 8 - 25 mg/dL [facility] Creatinine 1.5(H) 0.5 - 1.1 mg/dL [facility] Comment: NOTE: Estimated GFR (Cockroft-Gault) will NOT be calculated unless patient Height and Weight were entered. Also, Kidney Disease Stage (GFR) and Estimated GFR (Cockroft-Gault) will NOT be calculated if Creatinine result is <0.2. Kidney Disease Stage 44 mL/MIN [facility] Comment: NOTE; ??The GFR is an estimated value using the creatinine, sex, age, and race of the patient. THE Estimated Kidney Disease GFR is validated for AGES 18-70 YEARS STAGE ?mL/Min ?DESCRIPTION ??1 ?90 mL/min or more ?Normal or elevated GFR ??2 ? 60-89 mL/min ?Mildly decreased GFR ??3 ? 30-59 mL/min ?Moderately decreased GFR ??4 ? 15-29 mL/min ?Severely decreased GFR ??5 ? <15 mL/min ? Kidney failure or on dialysis Calcium 9.7 8.6 - 10.3 mg/dL [facility] Total Protein 7.4 6.4 - 8.3 g/dL [facility] Albumin 3.6 3.5 - 5.0 g/dL [facility] Globulin 3.8(H) 2.3 - 3.5 gm/dL [facility] Albumin/Globulin Ratio 0.9(L) 1.1 - 1.8 [facility] Total Bilirubin <0.2 0.0 - 1.2 mg/dL [facility] AST 17 0 - 32 U/L [facility] ALT 7 0 - 33 U/L [facility] Alkaline Phosphatase 118(H) 35 - 104 U/L [facility] Blood specimen (specimen) 07/24/2020 2:52 PM AUTO SPECIALTY SERVICES MANAGER 07/24/2020 4:17 PM AUTO SPECIALTY SERVICES MANAGER Narrative Resulting Agency Comment CLI us Cherelle Corcoran MD LAB BLOOD ORDERAB [place] [address], [facility] [phone] documented in this encounter Visit Diagnoses Diagnosis Acute upper back pain- Primary Leg swelling Swelling of limb Hyperlipidemia associated with type 2 diabetes mellitus (HCC) Uncontrolled type 2 diabetes mellitus with hyperglycemia (HCC) 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 (HCC) Schizophrenia, unspecified type (HCC) Hypertension associated with diabetes (HCC) Unspecified essential hypertension Gastroesophageal reflux disease, unspecified whether esophagitis present Anemia, unspecified type Gastritis without bleeding, unspecified chronicity, unspecified gastritis type documented in this encounter Discontinued Medications Medication Sig Discontinue Reason Start Date End Da te cephalexin (KEFLEX) 500 mg capsule TK ONE C PO Q 12 H Therapy completed 05/21/2020 07/24/2020 atorvastatin (LIPITOR) 20 mg tabletIndications:Hype rlipidemia associated with type 2 diabetes mellitus (HCC) Take 1 tablet (20 mg total) by mouth daily Reorder 04/03/2020 07/24/2020 Trulicity 0.75 mg/0.5 mL pen injector ADMINISTER 0.75 MG UNDER THE SKIN 1 TIME A WEEK Formulary change 07/09/2020 07/24/2020 atorvastatin (LIPITOR) 20 mg tabletIndications:Hype rlipidemia associated with type 2 diabetes mellitus (HCC) Take 1 tablet (20 mg total) by mouth daily Reorder 07/24/2020 07/24/2020 omeprazole (PriLOSEC) 20 mg capsule TAKE 1 CAPSULE BY MOUTH DAILY FOR 8 WEEKS THEN 1 CAPSULE EVERY OTHER DAY FOR 2 WEEKS THEN STOP Reorder 04/03/2020 07/24/2020 documented as of this encounter Historical Medications * This list may reflect changes made after this encounter. syringe with needle, insulin (INSULIN SYRINGE-NEEDLE U-100 MISC) 3 times a day 09/12/2017 11/30/2022 added in this encounter Orders Imaging Orders Without Results Count Last Order ed Date First Ordered Date XR SPINE THORACIC 2 VIEWS 1 07/24/2020 documented in this encounter Additional Health Concerns Infection Onset Date Last Indicated Resolved Time MRSA 01/06/2020 01/06/2020 02/06/2021 5:00 AM CDT documented as of this encounter Care Teams Screener And Blender Operator Relationship Specialty Start Date End Date Cherelle Corcoran MD PCP - General Family Medicine 08/30/19 Mark Queen MD Consulting Physician Infectious Diseases 01/10/20 documented as of this encounter
--- OUTSIDE RECORDS SUMMARY | 2024-07-04 04:20 | XMS_ITS | Encounter Summary ---
Author Organization [facility] Healthcare Address [address] [place] [address] Care Team Providers Care Form Maker Name Role Phone Cherelle Corcoran MD Primary Care Pro vider Mark Queen MD Unavailable [phone] Encounter Details Date Type Department Care Team (Latest Contact Info) Description 04/17/2020 10:05 AM CDT - 04/17/2020 11:59 PM CDT Hospital Encounter [facility] [address] [place] [address] Anat Pelayo, DPM [address] [place] [address] Discharge Disposition: Discharge to home or self [...] file Legal Sex Female 9:03 AM MEDICAL LABORATORY SCIENTIST Gender Identity Female 02/08/2020 6:39 PM CDT [...] Contact Info) Description 07/13/2024 9:00 AM MEDICAL LABORATORY SCIENTIST Hospital Encounter [facility] [address] [place] [address] Jaya Grier MD [address] [place] [address] [address] [place] [address] 07/13/2024 9:00 AM MEDICAL LABORATORY SCIENTIST - 07/13/2024 9:30 AM MEDICAL LABORATORY SCIENTIST Surgery [facility] [address] [place] [address] Jaya Grier MD [address] [place] [address] [address] [place] [address] ESOPHAGOGASTRODUODENOSCOPY Scheduled Procedures Name Priority Associated Diagnoses Date/Ti de ESOPHAGOGASTRODUODENOSCOPY Anemia, unspecified type Gastritis without bleeding, unspecified chronicity, unspecified gastritis type 07/13/2024 9:00 AM MEDICAL LABORATORY SCIENTIST COLONOSCOPY Iron deficiency anemia due to chronic blood loss documented as of this encounter Visit Diagnoses Not on filedocumented in this encounter Additional Health Concerns Infection Onset Date Last Indicated Resolved Time MRSA 01/06/2020 01/06/2020 02/06/2021 5:00 AM CDT documented as of this encounter Care Teams Form Maker Relationship Specialty Start Date End Date Cherelle Corcoran MD PCP - General Family Medicine 08/30/19 Mark Queen MD Consulting Physician Infectious Diseases 01/10/20 documented as of this encounter
--- OUTSIDE RECORDS SUMMARY | 2024-07-04 04:20 | XMS_ITS | Encounter Summary ---
Author Organization [facility] Address [address] [place] [address] Care Team Providers Care Ring Spinner Name Role Phone Cherelle Corcoran MD Primary Care Pro vider Mark Queen MD Unavailable [phone] Reason for Visit * Reason Comments Follow-up Diabetes. Numbers at home have been pretty stable. It was 221 yesterday before eating Encounter Details Date Type Department Care Team (Latest Contact Info) Description 04/16/2020 11:30 AM CDT Office Visit [facility] Primary Care [address] [place] [phone] Cherelle Corcoran MD [address] [place] [phone] Uncontrolled type 2 diabetes mellitus with hyperglycemia (CMS/HCC) (Primary Dx); Hypertension associated with diabetes (CMS/HCC); Iron deficiency anemia, unspecified iron deficiency anemia type; Ulcer of toe of right foot, with fat layer exposed (CMS/HCC) Social History Tobacco Use Types Packs/Day Years Used Date Smoking Tobacco: Never Smokeless Tobacco: Never Alcohol Use Standard Drinks/Week Comments Not Currently 0 (1 standard drink = 0.6 oz pur e alcohol) PHQ-2 Answer Date Recorded PHQ-2 Total Score 0 01/17/2020 Comments No Sex and Gender Information Value Date Recorded Sex Assigned at Not on file Legal Sex Female 9:03 AM HUSBANDRY PERSON Gender Identity Female 02/08/2020 6:39 PM CDT Sexual Orientation Not on file documented as of this encounter Last Filed Vital Signs Vital Sign Reading Time Taken Comments Blood Pressure 136/90 04/16/2020 11:08 AM CDT Pulse 88 04/16/2020 11:08 AM CDT Temperature 36.4 ??C (97.5 ??F) 04/16/2020 11:08 AM C DT Respiratory Rate 16 04/16/2020 11:08 AM CDT Oxygen Saturation 98% 04/16/2020 11:08 AM CDT Inhaled Oxygen Concentration - - Weight 55.3 kg (122 lb) 04/16/2020 11:08 AM CDT Height 157 cm (5' 1.81 ) 04/16/2020 11:08 AM CDT Body Mass Index 22.45 04/16/2020 11:08 AM CDT documented in this encounter Patient Instructions * Patient Instructions* Cherelle Corcoran MD - 04/16/2020 11:30 AM CDT Images from the original note were not included. Patient Education Increase basaglar to 40 units. Check blood sugar first thing in the morning before breakfast, should be less than 140. Also good to check blood sugar 2 hours after biggest meal of the day, should be less than 180. If you feel weird check blood sugar to make sure it isn't too low. If less than 70, see below. Schedule diabetic eye exam and mammogram/bone density scan. Hypoglycemia in a Person with Diabetes IMPORT EXPORT CLERK: Hypoglycemia is a serious condition that happens [...] ask them during your visits. ?? 2017 [employer] Information is for End User's use only and may not be sold, redistributed or otherwise used for commercial purposes. All illustrations and images included in CareNotes?? are the copyrighted property of [employer], [employer]. or [employer]. The above information is an sld educational aide only. It is not intended as medical advice for individual conditions or treatments. Talk to your doctor, nurse or pharmacist before following any medical regimen to see if it is safe and effective for you. documented in this encounter Progress Notes * Cherelle Corcoran MD - 04/16/2020 11:30 AM CDT Images from the original note were not included. Assessment/Plan: Assessment/Plan Diagnoses and all orders for this visit: Uncontrolled type 2 diabetes mellitus with hyperglycemia (CMS/HCC) (Primary) Assessment & Plan: Blood sugar still uncontrolled Increase basaglar to 40 units qhs Again advised to schedule eye exam Hypertension associated with diabetes (CMS/HCC) Assessment & Plan: BP above goal, but patient didn't take her medications this AM Continue to monitor Iron deficiency anemia, unspecified iron deficiency anemia type Assessment & Plan: Recent iron within normal limits, H/H improving, continue supplementation until normalized Ulcer of toe of right foot, with fat layer exposed (CMS/HCC) Assessment & Plan: Following with wound clinic F/u 2 weeks or sooner as needed. Strict return/ED precautions discussed. Subjective: Barbara Chakraborty is a 69 y.o. female here for follow up diabetes mellitus HPI Chief Complaint Patient presents with ??? Follow-up Diabetes. Numbers at home have been pretty stable. It was 221 yesterday before eating Diabetes mellitus Medications: thinks she is taking 34 units basaglar (unsure) and victoza 1.2mg daily Fasting blood sugar: 220-330 Hypertension: didn't take lisinopril this AM Ulcer R foot: has appointment with wound clinic this afternoon Review of Systems Constitutional: Negative for fever. HENT: Negative for sore throat. Respiratory: Negative for cough and shortness of breath. Gastrointestinal: Negative for diarrhea and vomiting. Musculoskeletal: Negative for myalgias. Skin: Positive for wound. Objective: Vital signs were reviewed. Vitals: 04/16/20 1108 BP: 136/90 BP Location: Left arm Patient Position: Sitting Pulse: 88 Resp: 16 Temp: 36.4 ??C (97.5 ??F) TempSrc: Temporal SpO2: 98% Weight: 55.3 kg (122 lb) Height: 157 cm (5' 1.81 ) Physical Exam Gen: NAD, comfortable, appears as stated age Eyes: no conjunctival injection, EOMI ENMT: external ears symmetric, nares patent CV: Regular rate Pulm: no increased work of breathing Skin: warm and dry MSK/Neuro: symmetric limb movement, R foot bandaged and in surgical shoe Psych: alert and oriented to person/place Cherelle Corcoran MD documented in this encounter Miscellaneous Notes * Assessment & Plan Note - Cherelle Corcoran MD - 04/17/2020 6:20 AM CDTAssociated Problem(s): Ulcer of toe of right foot, with fat layer exposed (HCC) (Resolved 08/28/2020) Following with wound clinic * Assessment & Plan Note - Cherelle Corcoran MD - 04/16/2020 11:45 AM CDTAssociated Problem(s): Iron deficiency anemia Recent iron within normal limits, H/H improving, continue supplementation until normalized * Assessment & Plan Note - Cherelle Corcoran MD - 04/16/2020 11:44 AM CDTAssociated Problem(s): Primary hypertension BP above goal, but patient didn't take her medications this AM Continue to monitor * Assessment & Plan Note - Cherelle Corcoran MD - 04/16/2020 11:43 AM CDTAssociated Problem(s): Type 2 diabetes mellitus with diabetic neuropathy, with long-term current use of insulin (HCC) Blood sugar still uncontrolled Increase basaglar to 40 units qhs Again advised to schedule eye exam documented in this encounter Plan of Treatment Upcoming Encounters Date Type Department Care Team (Latest Contact Info) Description 07/13/2024 9:00 AM HUSBANDRY PERSON Hospital Encounter [facility] [address] [place] [id number] Jaya Grier MD [address] [place] [address] DR GAINES [address] [place] [address] 07/13/2024 9:00 AM HUSBANDRY PERSON - 07/13/2024 9:30 AM HUSBANDRY PERSON Surgery [facility] [address] [place] [address] Jaya Grier MD [facility] [address] GAINES [address] [place] [address] ESOPHAGOGASTRODUODENOSCOPY Scheduled Procedures Name Priority Associated Diagnoses Date/Ti md ESOPHAGOGASTRODUODENOSCOPY Anemia, unspecified type Gastritis without bleeding, unspecified chronicity, unspecified gastritis type 07/13/2024 9:00 AM HUSBANDRY PERSON COLONOSCOPY Iron deficiency anemia due to chronic blood loss documented as of this encounter Visit Diagnoses Diagnosis Uncontrolled type 2 diabetes mellitus with hyperglycemia (HCC)- Primary Hypertension associated with diabetes (HCC) Unspecified essential hypertension Iron deficiency anemia, unspecified iron deficiency anemia type Ulcer of toe of right foot, with fat layer exposed (HCC) Anemia, unspecified type Gastritis without bleeding, unspecified chronicity, unspecified gastritis type documented in this encounter Additional Health Concerns Infection Onset Date Last Indicated Resolved Time MRSA 01/06/2020 01/06/2020 02/06/2021 5:00 AM CDT documented as of this encounter Care Teams Ring Spinner Relationship Specialty Start Date End Date Cherelle Corcoran MD PCP - General Family Medicine 08/30/19 Mark Queen MD Consulting Physician Infectious Diseases 01/10/20 documented as of this encounter
--- OUTSIDE RECORDS SUMMARY | 2024-07-04 04:20 | XMS_ITS | Encounter Summary ---
Author Organization [facility] Address [address] [place] [address] Care Team Providers Care Medical Educator Name Role Phone Cherelle Corcoran MD Primary Care Pro vider Mark Queen MD Unavailable [phone] Reason for Referral * Diagnostic Imaging (Routine) - Closed Specialty Diagnoses / Procedures Referred By Contflex t Referred To Contact Diagnoses Acute upper back pain Procedures XR Spine Thoracic 2 Vw Cherelle Corcoran MD Phone: tel: fax: [address] [phone] Referral ID Status Reason Start Date Expiration Date Visits Re quested Visits Authorized [id number] Closed 07/24/2020 08/23/2021 1 1 EL TRAILER MECHANIC Encounter Details Date Type Department Care Team (Latest Contact Info) Description 07/24/2020 2:21 PM DIESEL TRAILER MECHANIC Hospital Encounter [facility] Cherelle Corcoran MD [address] [place] [phone] Acute upper back pain Social History Tobacco Use Types Packs/Day Years Used Date Smoking Tobacco: Never Smokeless Tobacco: Never Alcohol Use Standard Drinks/Week Comments Not Currently 0 (1 standard drink = 0.6 oz pur e alcohol) PHQ-2 Answer Date Recorded PHQ-2 Total Score 0 01/17/2020 Comments No Sex and Gender Information Value Date Recorded Sex Assigned at Not on file Legal Sex Female 9:03 AM DIESEL TRAILER MECHANIC Gender Identity Female 02/08/2020 6:39 PM [...] mouth daily 90 capsule 07/24/2020 01/17/20 21 pen needle, diabetic 32 gauge x [...] (Latest Contact Info) Description 07/13/2024 9:00 AM [facility] Hospital Encounter [facility] [address] [place] [address] Jaya Grier MD [facility] [address] GAINES [address] [place] [address] 07/13/2024 9:00 AM DIESEL TRAILER MECHANIC - 07/13/2024 9:30 AM [facility] Surgery [facility] [address] [place] [address] Jaya Grier MD [facility] [address] [place] [address] ESOPHAGOGASTRODUODENOSCOPY Scheduled Procedures Name Priority Associated Diagnoses Date/Ti oh ESOPHAGOGASTRODUODENOSCOPY Anemia, unspecified type Gastritis without bleeding, unspecified chronicity, unspecified gastritis type 07/13/2024 9:00 AM DIESEL TRAILER MECHANIC COLONOSCOPY Iron deficiency anemia due to chronic blood loss documented as of this encounter Procedures Procedure Name Priority Date/Time Associated Diagnosis Comments XR SPINE THORACIC 3 VIEWS Schedule Routine, Read Routine (OP Routine) 07/24/2020 3:04 PM DIESEL TRAILER MECHANIC PRO B-TYPE NATRIURETIC PEPTIDE Routine 07/24/2020 2:52 PM DIESEL TRAILER MECHANIC documented in this encounter Results * XR Spine Thoracic 3 Vw (07/24/2020 3:04 PM DIESEL TRAILER MECHANIC) Anatomical Region Laterality Modality Spine N/A Radiographic Kathy ging 07/26/2020 4:05 AM DIESEL TRAILER MECHANIC Narrative 07/26/2020 4:14 AM DIESEL TRAILER MECHANIC Patient Name: SIXTO CHAKRABORTY ?Ordering Dr: Cherelle Corcoran MD ?? D.O.B: 1950 ? Exam Date: 07/24/20 ?? 1504 ?? Age: 69 ?Sex: Female ? MR#: [id number] ?? Loc: ? RADIOLOGY REPORT ?? Order #[id number] ?? Radiology ? Thoracic Spine w/Swim 3 Vw Min ? Signed ? EXAM DESCRIPTION: ?? Thoracic Spine w/Swim 3 Vw Min ? REASON FOR STUDY: ?? ACUTE UPPER BACK PAIN X 1 MONTH, NO INJURY ? TECHNIQUE: ?? AP, lateral, swimmer's views of the thoracic spine were obtained ? COMPARISON: ?? None available ? FINDINGS: ?Vertebral body height appears relatively well-maintained. ??There is customary ?? thoracic kyphosis. ??Mild intervertebral disc height loss is noted. ??Mild ?? marginal osteophyte formation is present. ??Paravertebral stripes are within ?? normal limits. ? IMPRESSION: ?? 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 ? THIS IS AN ELECTRONICALLY VERIFIED FINAL REPORT ?? 07/26/2020 4:14 AM - Electronically signed by Santo Arriaga M.D. ?? Santo Arriaga M.D. ? AT: AT ?? D: ??07/26/2020 4:14 AM ?? T: ??07/26/2020 4:14 AM ? Report ID: [id number] ?? Reading Location: ??[id number] ? REPORT ELECTRONICALLY SIGNED IN OTHER VENDOR SYSTEM ?? Resulting Agency Comment O Procedure Note Santo Arriaga MD - 07/26/2020 Patient Name: David CHAKRABORTY Dr: Cherelle Corcoran MD D.O.B: 1950 Exam Date: 07/24/20 150 Age: 69 Sex: Female MR#: [id number] Loc: RADIOLOGY REPORT Order #[id number] Radiology Thoracic Spine w/Swim 3 Vw Min Signed EXAM DESCRIPTION: Thoracic Spine w/Swim 3 Vw Min REASON FOR STUDY: ACUTE UPPER BACK PAIN X 1 MONTH, NO INJURY TECHNIQUE: AP, lateral, swimmer's views of the thoracic spine wereobtained COMPARISON: None available FINDINGS: Vertebral body height appears relatively well-maintained. There iscustomary thoracic kyphosis. Mild intervertebral disc height loss is noted. Mild marginal osteophyte formation is present. Paravertebral stripes arewithin normal limits. IMPRESSION: Minimal osteoarthritic changes of the thoracic spine. THIS IS AN ELECTRONICALLY VERIFIED FINAL REPORT 07/26/2020 4:14 AM - Electronically signed by Santo Arriaga M.D. AT: AT Report ID: [id number] Reading Location: [place] [address] REPORT ELECTRONICALLY SIGNED IN OTHER VENDOR SYSTEM Cherelle Corcoran MD IMG XR PROCEDURES Final Result * (ABNORMAL) Pro B-type natriuretic peptide (07/24/2020 2:52 PM DIESEL TRAILER MECHANIC) NT-Pro-B Natriuret Pep 204(H) 0 - 125 pg/mL [facility] Comment: Reference Range 0-74 years: ??0-125 pg/mL ? >74 years: ??0-450 pg/mL Method: ECLIA technology 07/24/2020 2:52 PM DIESEL TRAILER MECHANIC 07/24/2020 4:17 PM DIESEL TRAILER MECHANIC Narrative Resulting Agency Comment CLI Cherelle Corcoran MD LAB BLOOD ORDERAB LES Final Result [facility] [address] [place] [address], [facility] [phone] documented in this encounter Visit Diagnoses Diagnosis Acute upper back pain Anemia, unspecified type Gastritis without bleeding, unspecified chronicity, unspecified gastritis type documented in this encounter Orders Imaging Orders Without Results Count Last Order ed Date First Ordered Date XR SPINE THORACIC 2 VIEWS 1 07/26/2020 documented in this encounter Additional Health Concerns Infection Onset Date Last Indicated Resolved Time MRSA 01/06/2020 01/06/2020 02/06/2021 5:00 AM CDT documented as of this encounter Care Teams Medical Educator Relationship Specialty Start Date End Date Cherelle Corcoran MD PCP - General Family Medicine 08/30/19 Mark Queen MD Consulting Physician Infectious Diseases 01/10/20 documented as of this encounter
--- OUTSIDE RECORDS SUMMARY | 2024-07-04 04:20 | XMS_ITS | Encounter Summary ---
Author Organization [facility] Address [address] [place] [address] Care Team Providers Care Team Foreman Name Role Phone Cherelle Corcoran MD Primary Care Pro vider Mark Queen MD Unavailable [phone] Reason for Visit * Reason Onset Date Comments Bone Density & Mammogram 04/27/2020 Encounter Details Date Type Department Care Team ([facility] st Contact Info) Description 04/27/2020 Telephone [facility] Primary Care [address] [facility] [address] [place] [address] Cherelle Corcoran MD [address] [place] [address] [address] [place] [address] Bone Density & Mammogram Social History Tobacco Use Types Packs/Day Years Used Date Smoking Tobacco: Never Smokeless Tobacco: Never Alcohol Use Standard Drinks/Week Comments Not Currently 0 (1 standard drink = 0.6 oz pur e alcohol) PHQ-2 Answer Date Recorded PHQ-2 Total Score 0 01/17/2020 Comments No Sex and Gender Information Value Date Recorded Sex Assigned at Not on file Legal Sex Female 9:03 AM VACUUM TRUCK DRIVER Gender Identity Female 02/08/2020 6:39 PM CDT Sexual Orientation Not on file documented as of this encounter Miscellaneous Notes * Telephone Encounter - Natacha London MA - 04/30/2020 2:34 PM CST Pt and son notified during appt today. They will keep appt UM TRUCK DRIVER * Telephone Encounter - Natacha London MA - 04/30/2020 9:39 AM CST Pt due to be seen in the office today. UM TRUCK DRIVER * Telephone Encounter - Cherelle Corcoran MD - 04/27/2020 4:52 PM CST If she isn't having symptoms can go ahead and schedule first available. You can go elsewhere, but Lev not sure if anywhere has sooner appts as COVID pushed things back. UM TRUCK DRIVER * Telephone Encounter - Shelly Gilman - 04/27/2020 3:13 PM CST Pt's daughter says that pt will not be able to get a bone density or mammogram completed until after May. She would like to know if there is another place where she can take pt to have these orders completed. CB# [phone] UM TRUCK DRIVER documented in this encounter Plan of Treatment Upcoming Encounters Date Type Department Care Team (Latest Contact Info) Description 07/13/2024 9:00 AM VACUUM TRUCK DRIVER Hospital Encounter [facility] [address] [place] [address] Jaya Grier MD [facility] [address] [address] 07/13/2024 9:00 AM VACUUM TRUCK DRIVER - 07/13/2024 9:30 AM VACUUM TRUCK DRIVER Surgery [facility] [address] [place] [address] Jaya Grier MD [address] [place] [address] ESOPHAGOGASTRODUODENOSCOPY Scheduled Procedures Name Priority Associated Diagnoses Date/Ti me ESOPHAGOGASTRODUODENOSCOPY Anemia, unspecified type Gastritis without bleeding, unspecified chronicity, unspecified gastritis type 07/13/2024 9:00 AM VACUUM TRUCK DRIVER COLONOSCOPY Iron deficiency anemia due to chronic blood loss documented as of this encounter Visit Diagnoses Not on filedocumented in this encounter Additional Health Concerns Infection Onset Date Last Indicated Resolved Time MRSA 01/06/2020 01/06/2020 02/06/2021 5:00 AM CDT documented as of this encounter Care Teams Team Foreman Relationship Specialty Start Date End Date Cherelle Corcoran MD PCP - General Family Medicine 08/30/19 Mark Queen MD Consulting Physician Infectious Diseases 01/10/20 documented as of this encounter
--- OUTSIDE RECORDS SUMMARY | 2024-07-04 04:20 | XMS_ITS | Encounter Summary ---
Author Organization [facility] Healthcare Address [address] [place] [address] Care Team Providers Care Student Affairs Dean Name Role Phone Cherelle Corcoran MD Primary Care Pro vider Mark Queen MD Unavailable [phone] Encounter Details Date Type Department Care Team (Latest Contact Info) Description 04/10/2020 9:40 AM CDT - 04/10/2020 11:59 PM CDT Hospital Encounter [facility] [address] [place] [address] Anat Pelayo, DPM [address] [place] [address] Discharge Disposition: Discharge to home or self [...] on file Legal Sex Female 9:03 AM CONSUMER ANALYST Gender Identity Female 02/08/2020 6:39 PM [...] (Latest Contact Info) Description 07/13/2024 9:00 AM CONSUMER ANALYST Hospital Encounter [facility] [address] [place] [address] Jaya Grier MD [address] [place] [address] DR GAINES [address] [place] [address] 07/13/2024 9:00 AM CONSUMER ANALYST - 07/13/2024 9:30 AM CONSUMER ANALYST Surgery [facility] [address] [place] [address] Jaya Grier MD [address] [place] [address] DR GAINES [address] [place] [address] ESOPHAGOGASTRODUODENOSCOPY Scheduled Procedures Name Priority Associated Diagnoses Date/Ti nh ESOPHAGOGASTRODUODENOSCOPY Anemia, unspecified type Gastritis without bleeding, unspecified chronicity, unspecified gastritis type 07/13/2024 9:00 AM CONSUMER ANALYST COLONOSCOPY Iron deficiency anemia due to chronic blood loss documented as of this encounter Visit Diagnoses Not on filedocumented in this encounter Additional Health Concerns Infection Onset Date Last Indicated Resolved Time MRSA 01/06/2020 01/06/2020 02/06/2021 5:00 AM CDT documented as of this encounter Care Teams Student Affairs Dean Relationship Specialty Start Date End Date Cherelle Corcoran MD PCP - General Family Medicine 08/30/19 Mark Queen MD Consulting Physician Infectious Diseases 01/10/20 documented as of this encounter
--- OUTSIDE RECORDS SUMMARY | 2024-07-04 04:20 | XMS_ITS | Encounter Summary ---
Author Organization [facility] Address [address] [facility] [facility] [address] [place] [address] Care Team Providers Care Jacquard Twine Polisher Operator Name Role Phone Cherelle Corcoran MD Primary Care Pro vider Mark Queen MD Unavailable [phone] Encounter Details Date Type Department Care Team (Late st Contact Info) Description 06/01/2020 Orders Only [facility] Primary Care [address] [facility] [address] [place] [address] Cherelle Corcoran MD [facility] [address] [place] [address] Uncontrolled type 2 diabetes mellitus with hyperglycemia (CMS/HCC) (Primary Dx); Hypercalcemia Social History Tobacco Use Types Packs/Day Years Used Date Smoking Tobacco: Never Smokeless Tobacco: Never Alcohol Use Standard Drinks/Week Comments Not Currently 0 (1 standard drink = 0.6 oz pur e alcohol) PHQ-2 Answer Date Recorded PHQ-2 Total Score 0 01/17/2020 Comments No Sex and Gender Information Value Date Recorded Sex Assigned at Not on file Legal Sex Female 9:03 AM QC LAB TECHNICIAN Gender Identity Female 02/08/2020 6:39 PM CDT Sexual Orientation Not on file documented as of this encounter Ordered Prescriptions Prescription Sig Dispense Quantity Refills Last Filled Start Date End Date insulin glargine (LANTUS,BASAGLAR) 100 unit/mL (3 mL) insulin penIndications:Unco ntrolled type 2 diabetes mellitus with hyperglycemia (HCC) Inject 42 Units under the skin daily 5 pen 3 06/01/2020 documented in this encounter Plan of Treatment Upcoming Encounters Date Type Department Care Team (Latest Contact Info) Description 07/13/2024 9:00 AM QC LAB TECHNICIAN Hospital Encounter [facility] [address] [place] [address] Jaya Grier MD [address] [place] [address] 07/13/2024 9:00 AM QC LAB TECHNICIAN - 07/13/2024 9:30 AM QC LAB TECHNICIAN Surgery [facility] [address] [place] [address] Jaya Grier MD [address] [place] [address] ESOPHAGOGASTRODUODENOSCOPY Scheduled Procedures Name Priority Associated Diagnoses Date/Ti me ESOPHAGOGASTRODUODENOSCOPY Anemia, unspecified type Gastritis without bleeding, unspecified chronicity, unspecified gastritis type 07/13/2024 9:00 AM QC LAB TECHNICIAN COLONOSCOPY Iron deficiency anemia due to chronic blood loss documented as of this encounter Procedures Procedure Name Priority Date/Time Associated Diagnosis Comments PTH Routine 07/24/2020 2:52 PM QC LAB TECHNICIAN Hypercalcemia documented in this encounter Results * PTH (07/24/2020 2:52 PM QC LAB TECHNICIAN) PTH Intact 50 15 - 65 pg/mL [facility] Blood specimen (specimen) 07/24/2020 2:52 PM QC LAB TECHNICIAN 07/24/2020 4:17 PM QC LAB TECHNICIAN Narrative Resulting Agency Comment CLI us Cherelle Corcoran MD LAB BLOOD ORDERAB LES Final Result [address] [phone] documented in this encounter Visit Diagnoses Diagnosis Uncontrolled type 2 diabetes mellitus with hyperglycemia (HCC)- Primary Hypercalcemia Anemia, unspecified type Gastritis without bleeding, unspecified chronicity, unspecified gastritis type documented in this encounter Discontinued Medications Medication Sig Discontinue Reason Start Date End Da te Basaglar KwikPen U-100 Insulin 100 unit/mL (3 mL) insulin penIndications:Uncontroll ed type 2 diabetes mellitus with hyperglycemia (HCC) Inject 34 Units under the skin nightly 05/31/2020 06/01/2020 documented as of this encounter Additional Health Concerns Infection Onset Date Last Indicated Resolved Time MRSA 01/06/2020 01/06/2020 02/06/2021 5:00 AM CDT documented as of this encounter Care Teams Jacquard Twine Polisher Operator Relationship Specialty Start Date End Date Cherelle Corcoran MD PCP - General Family Medicine 08/30/19 Mark Queen MD Consulting Physician Infectious Diseases 01/10/20 documented as of this encounter
--- OUTSIDE RECORDS SUMMARY | 2024-07-04 04:20 | XMS_ITS | Encounter Summary ---
Author Organization [facility] Address [address] [place] [address] Care Team Providers Care Web Weaver Name Role Phone Cherelle Corcoran MD Primary Care Pro vider Mark Queen MD Unavailable [phone] Encounter Details Date Type Department Care Team (Late st Contact Info) Description 05/30/2020 Telephone [facility] Primary Care [address] [facility] [address] [place] [address] Natacha London MA Social History [...] on file Legal Sex Female 9:03 AM HOP WORKER Gender Identity Female 02/08/2020 6:39 PM CDT Sexual Orientation Not on file documented as of this encounter Miscellaneous Notes * Telephone Encounter - Natacha London MA - 05/30/2020 8:34 AM CST ----- Message from Cherelle Corcoran MD sent at 05/29/2020 4:53 PM HOP WORKER ----- Ok, please let patient know she needs to return to have PTH checked. A1c improved, but still high. Recommend increasing insulin to 42 units daily. WORKER documented in this encounter Plan of Treatment Upcoming Encounters Date Type Department Care Team (Latest Contact Info) Description 07/13/2024 9:00 AM HOP WORKER Hospital Encounter [facility] GI Lab [address] [place] [address] Jaya Grier MD [address] [place] [address] [address] [place] [address] 07/13/2024 9:00 AM HOP WORKER - 07/13/2024 9:30 AM HOP WORKER Surgery [facility] [address] [place] [address] Jaya Grier MD [address] [place] [address] [address] [place] [address] ESOPHAGOGASTRODUODENOSCOPY Scheduled Procedures Name Priority Associated Diagnoses Date/Ti me ESOPHAGOGASTRODUODENOSCOPY Anemia, unspecified type Gastritis without bleeding, unspecified chronicity, unspecified gastritis type 07/13/2024 9:00 AM HOP WORKER COLONOSCOPY Iron deficiency anemia due to chronic blood loss documented as of this encounter Visit Diagnoses Not on filedocumented in this encounter Additional Health Concerns Infection Onset Date Last Indicated Resolved Time MRSA 01/06/2020 01/06/2020 02/06/2021 5:00 AM CDT documented as of this encounter Care Teams Web Weaver Relationship Specialty Start Date End Date Cherelle Corcoran MD PCP - General Family Medicine 08/30/19 Mark Queen MD Consulting Physician Infectious Diseases 01/10/20 documented as of this encounter
--- OUTSIDE RECORDS SUMMARY | 2024-07-04 04:20 | XMS_ITS | Encounter Summary ---
Author Organization [facility] Address [address] [facility] [address] [place] [address] Care Team Providers Care Patternmaker Apprentice Metal Name Role Phone Cherelle Corcoran MD Primary Care Pro vider Mark Queen MD Unavailable [phone] Encounter Details Date Type Department Care Team (Late st Contact Info) Description 04/03/2020 Orders Only [facility] Primary Care [address] [facility] [address] [place] [address] Cherelle Corcoran MD [facility] [address] [place] [address] Hyperlipidemia associated with type 2 diabetes mellitus (CMS/HCC) (Primary Dx) Social History Tobacco Use [...] file Legal Sex Female 9:03 AM PORTFOLIO CONSULTANT Gender Identity Female 02/08/2020 6:39 PM CDT Sexual Orientation Not on file documented as of this encounter Ordered Prescriptions Prescription Sig Dispense Quantity Refills Last Filled Start Date End Date atorvastatin (LIPITOR) 20 mg tabletIndications: Hyperlipidemia associated with type 2 diabetes mellitus (HCC) Take 1 tablet (20 mg total) by mouth daily 90 tablet 3 04/03/2020 07/24/2020 documented in this encounter Plan of Treatment Upcoming Encounters Date Type Department Care Team (Latest Contact Info) Description 07/13/2024 9:00 AM PORTFOLIO CONSULTANT Hospital Encounter [facility] [address] [place] [address] Jaya Grier MD [address] [place] [address] [address] [place] [address] 07/13/2024 9:00 AM PORTFOLIO CONSULTANT - 07/13/2024 9:30 AM PORTFOLIO CONSULTANT Surgery [facility] [address] [place] [address] Jaya Grier MD [address] [place] [address] [address] [place] [address] ESOPHAGOGASTRODUODENOSCOPY Scheduled Procedures Name Priority Associated Diagnoses Date/Ti wy ESOPHAGOGASTRODUODENOSCOPY Anemia, unspecified type Gastritis without bleeding, unspecified chronicity, unspecified gastritis type 07/13/2024 9:00 AM PORTFOLIO CONSULTANT COLONOSCOPY Iron deficiency anemia due to chronic blood loss documented as of this encounter Visit Diagnoses Diagnosis Hyperlipidemia associated with type 2 diabetes mellitus (HCC)- Primary Anemia, unspecified type Gastritis without bleeding, unspecified chronicity, unspecified gastritis type documented in this encounter Additional Health Concerns Infection Onset Date Last Indicated Resolved Time MRSA 01/06/2020 01/06/2020 02/06/2021 5:00 AM CDT documented as of this encounter Care Teams Patternmaker Apprentice Metal Relationship Specialty Start Date End Date Cherelle Corcoran MD PCP - General Family Medicine 08/30/19 Mark Queen MD Consulting Physician Infectious Diseases 01/10/20 documented as of this encounter
--- OUTSIDE RECORDS SUMMARY | 2024-07-04 04:20 | XMS_ITS | Encounter Summary ---
Author Organization [facility] Address [address] [place] [address] Care Team Providers Care Core Drill Operator Helper Name Role Phone Cherelle Corcoran MD Primary Care Pro vider Mark Queen MD Unavailable [phone] Encounter Details Date Type Department Care Team (Late st Contact Info) Description 04/03/2020 Telephone [facility] Primary Care [address] [facility] [address] [place] [address] Cherelle Corcoran MD [facility] [facility] [address] [place] [address] Social History Tobacco Use Types [...] file Legal Sex Female 9:03 AM FIELD INVESTIGATOR Gender Identity Female 02/08/2020 6:39 PM CDT Sexual Orientation Not on file documented as of this encounter Miscellaneous Notes * Telephone Encounter - Cherelle Corcoran MD - 04/03/2020 11:32 AM CDT Noted, will obtain with next labs. * Telephone Encounter - Natacha London MA - 04/03/2020 11:11 AM CDT See below * Telephone Encounter - Nikki Vargas - 04/03/2020 10:53 AM CDT Hepatitis C * Telephone Encounter - Natacha London MA - 04/03/2020 10:25 AM CDT Did they say which one could not be completed? * Telephone Encounter - Nikki Vargas - 04/03/2020 10:09 AM CDT Lab unable to do add on labs for patient because there was no serum tube. Patient will have to come back and do that lab, all others were completed. documented in this encounter Plan of Treatment Upcoming Encounters Date Type Department Care Team (Latest Contact Info) Description 07/13/2024 9:00 AM FIELD INVESTIGATOR Hospital Encounter [facility] [address] [place] [address] Jaya Grier MD [address] [place] [address] 07/13/2024 9:00 AM FIELD INVESTIGATOR - 07/13/2024 9:30 AM FIELD INVESTIGATOR Surgery [facility] [address] [place] [address] Jaya Grier MD [address] [place] [address] ESOPHAGOGASTRODUODENOSCOPY Scheduled Procedures Name Priority Associated Diagnoses Date/Ti me ESOPHAGOGASTRODUODENOSCOPY Anemia, unspecified type Gastritis without bleeding, unspecified chronicity, unspecified gastritis type 07/13/2024 9:00 AM FIELD INVESTIGATOR COLONOSCOPY Iron deficiency anemia due to chronic blood loss documented as of this encounter Visit Diagnoses Not on filedocumented in this encounter Additional Health Concerns Infection Onset Date Last Indicated Resolved Time MRSA 01/06/2020 01/06/2020 02/06/2021 5:00 AM CDT documented as of this encounter Care Teams Core Drill Operator Helper Relationship Specialty Start Date End Date Cherelle Corcoran MD PCP - General Family Medicine 08/30/19 Mark Queen MD Consulting Physician Infectious Diseases 01/10/20 documented as of this encounter
--- OUTSIDE RECORDS SUMMARY | 2024-07-04 04:20 | XMS_ITS | Encounter Summary ---
Author Organization [facility] Address [address] [place] [address] Care Team Providers Care Booth Operator Name Role Phone Cherelle Corcoran MD Primary Care Pro vider Mark Queen MD Unavailable [phone] Reason for Visit * Reason Comments Follow-up Pt in the office for follow up DM. Glucose was 186 before arrive at office today. Encounter Details Date Type Department Care Team (Latest Contact Info) Description 05/28/2020 11:30 AM PROFESSIONAL BUILDER Office Visit [facility] Primary Care [address] [place] [phone] Cherelle Corcoran MD [address] [place] [phone] Uncontrolled type 2 diabetes mellitus with hyperglycemia (CMS/HCC) (Primary Dx); Need for hepatitis C screening test; Hypercalcemia; Iron deficiency anemia, unspecified iron deficiency anemia type; Hypertension associated with diabetes (CMS/HCC); Ulcer of toe of right foot, [...] file Legal Sex Female 9:03 AM PROFESSIONAL BUILDER Gender Identity Female 02/08/2020 6:39 PM CDT Sexual Orientation Not on file documented as of this encounter Last Filed Vital Signs Vital Sign Reading Time Taken Comments Blood Pressure 130/82 05/28/2020 11:50 AM PROFESSIONAL BUILDER Pulse 85 05/28/2020 11:50 AM PROFESSIONAL BUILDER Temperature 36.9 ??C (98.5 ??F) 05/28/2020 11:[address] Respiratory Rate 16 05/28/2020 11:50 AM PROFESSIONAL BUILDER Oxygen Saturation 99% 05/28/2020 11:50 AM PROFESSIONAL BUILDER Inhaled Oxygen Concentration - - Weight 56.7 kg (125 lb) 05/28/2020 11:50 AM PROFESSIONAL BUILDER Height 157.5 cm (5' 2 ) 05/28/2020 11:50 AM PROFESSIONAL BUILDER Body Mass Index 22.86 05/28/2020 11:50 AM PROFESSIONAL BUILDER documented in this encounter Patient Instructions * Patient Instructions* Cherelle Corcoran MD - 05/28/2020 11:30 AM PROFESSIONAL BUILDER Get labs done on 1st floor Call wound clinic and schedule appointment. Let me know if you have any issues scheduling. Check with your insurance to find a psychiatrist. Let me know if you need a new referral. Make sure to schedule mammogram and bone density. ESSIONAL BUILDER documented in this encounter Progress Notes * Cherelle Corcoran MD - 05/28/2020 11:30 AM CST Images from the original note were not included. Assessment/Plan: Assessment/Plan Diagnoses and all orders for this visit: Uncontrolled type 2 diabetes mellitus with hyperglycemia (CMS/HCC) (Primary) Assessment & Plan: Check a1c Barbara isn't checking blood sugar regularly, but when she is she has several >200 so I lean towards increasing if a1c>7 Orders: - Hemoglobin A1c; Future Need for hepatitis C screening test - Hepatitis C antibody; Future Hypercalcemia Comments: Recheck Orders: - Comprehensive metabolic panel; Future Iron deficiency anemia, unspecified iron deficiency anemia type Assessment & Plan: Iron levels recently normalized, but still anemic, repeat today Orders: - CBC with auto differential; Future - ABO/Rh; Future Hypertension associated with diabetes (CMS/HCC) Assessment & Plan: BP borderline Continue 10mg lisinopril Continue to monitor F/u pending labs. Strict return/ED precautions discussed. Subjective: Barbara Chakraborty is a 69 y.o. female here for follow up diabetes mellitus HPI Chief Complaint Patient presents with ??? Follow-up Pt in the office for follow up DM. Glucose was 186 before arrive at office today. Diabetes mellitus Medications: 40 units basaglar nightly, & recently switched from victoza to trulicity Blood sugar 100-265, slightly unclear when in relation to meals levels are taken no hypoglycemia episodes Hypertension: on 10mg lisinopril?? Hyperlipidemia: on 20mg atorvastatin R foot ulcer: released from wound clinic, but son states today her toe looks more red than previously S/p R toe amputation for osteo Gerd: on omeprazole 20mg Iron deficiency: on iron, levels now normalized, but still mildly anemic Schizophrenia: has not seen psychiatry Review of Systems Constitutional: Negative for fever. HENT: Negative for sore throat. Respiratory: Negative for cough and shortness of breath. Gastrointestinal: Negative for diarrhea and vomiting. Musculoskeletal: Negative for myalgias. Skin: Positive for wound. Objective: Vital signs were reviewed. Vitals: 05/28/20 1150 BP: 130/82 BP Location: Left arm Patient Position: Sitting Pulse: 85 Resp: 16 Temp: 36.9 ??C (98.5 ??F) TempSrc: Tympanic SpO2: 99% Weight: 56.7 kg (125 lb) Height: 157.5 cm (5' 2 ) Physical Exam Gen: NAD, comfortable, appears as stated age Eyes: no conjunctival injection, EOMI ENMT: external ears symmetric CV: Regular rate and rhythm, no murmurs, rubs or gallops Pulm: no increased work of breathing, clear to asculation bilaterally, no wheezing, rhonchi or rales Skin: no rashes or nodules, warm and dry, no open ulcer on plantar R great toe, but dark red color change MSK/Neuro: symmetric limb movement, s/p R toe amputation Psych: alert and oriented to person/place/time Cherelle Corcoran MD ESSIONAL BUILDER documented in this encounter Miscellaneous Notes * Assessment & Plan Note - Cherelle Corcoran MD - 05/28/2020 1:52 PM CSTAssociated Problem(s): Ulcer of toe of right foot, with fat layer exposed (HCC) (Resolved 08/28/2020) Encouraged to follow up with wound clinic for reassessment ESSIONAL BUILDER * Assessment & Plan Note - Cherelle Corcoran MD - 05/28/2020 1:51 PM CSTAssociated Problem(s): Iron deficiency anemia Iron levels recently normalized, but still anemic, repeat today ESSIONAL BUILDER * Assessment & Plan Note - Cherelle Corcoran MD - 05/28/2020 1:51 PM CSTAssociated Problem(s): Gastroesophageal reflux disease without esophagitis Iron levels recently normalized, but still anemic, repeat today ESSIONAL BUILDER * Assessment & Plan Note - Cherelle Corcoran MD - 05/28/2020 1:50 PM CSTAssociated Problem(s): Primary hypertension BP borderline Continue 10mg lisinopril Continue to monitor ESSIONAL BUILDER * Assessment & Plan Note - Cherelle Corcoran MD - 05/28/2020 1:50 PM CSTAssociated Problem(s): Type 2 diabetes mellitus with diabetic neuropathy, with long-term current use of insulin (HCC) Check a1c Barbara isn't checking blood sugar regularly, but when she is she has several >200 so I lean towards increasing if a1c>7 ESSIONAL BUILDER documented in this encounter Plan of Treatment Upcoming Encounters Date Type Department Care Team (Latest Contact Info) Description 07/13/2024 9:00 AM PROFESSIONAL BUILDER Hospital Encounter [facility] [address] [place] [address] Jaya Grier MD [address] [place] [address] 07/13/2024 9:00 AM PROFESSIONAL BUILDER - 07/13/2024 9:30 AM PROFESSIONAL BUILDER Surgery [facility] [address] [place] [address] Jaya Grier MD [address] [place] [address] ESOPHAGOGASTRODUODENOSCOPY Scheduled Orders Name Type Priority Associated Diagnoses Orde r Schedule ABO/Rh Lab Routine Iron deficiency anemia, unspecified iron deficiency anemia type Expected: 05/28/2020, Expires: 05/28/2021 Scheduled Procedures Name Priority Associated Diagnoses Date/Ti me ESOPHAGOGASTRODUODENOSCOPY Anemia, unspecified type Gastritis without bleeding, unspecified chronicity, unspecified gastritis type 07/13/2024 9:00 AM PROFESSIONAL BUILDER COLONOSCOPY Iron deficiency anemia due to chronic blood loss documented as of this encounter Procedures Procedure Name Priority Date/Time Associated Diagnosis Comments CBC WITH AUTO DIFFERENTIAL Routine 05/28/2020 1:18 PM PROFESSIONAL BUILDER Iron deficiency anemia, unspecified iron deficiency anemia type HEPATITIS C ANTIBODY Routine 05/28/2020 12:34 PM PROFESSIONAL BUILDER Need for hepatitis C screening test HEMOGLOBIN A1C Routine 05/28/2020 12:34 PM PROFESSIONAL BUILDER Uncontrolled type 2 diabetes mellitus with hyperglycemia (CMS/HCC) COMPREHENSIVE METABOLIC PANEL Routine 05/28/2020 12:34 PM PROFESSIONAL BUILDER Hypercalcemia documented in this encounter Results * (ABNORMAL) CBC with auto differential (05/28/2020 1:18 PM PROFESSIONAL BUILDER) WBC 7.6 3.8 - 9.9 X10 3/ul [facility] RBC 3.79(L) 3.90 - 5.20 x10 6/ul [facility] Hemoglobin 10.8(L) 11.9 - 15.5 g/dL [facility] Hct 34.3(L) 35.6 - 45.5 % [facility] MCV 90.5 81.3 - 96.4 fl [facility] MCH 28.5 27.1 - 33.3 pg [facility] MCHC 31.5(L) 32.3 - 35.7 g/dl [facility] RDW 16.1(H) 11.1 - 14.9 % [facility] Plt Count 316 150 - 400 x10 3/ul [facility] MPV 10.8 9.1 - 12.3 fl [facility] Neut % 52.5 % [facility] Immature Gran % 0.3 % [facility] Lymph % 38.3 % [facility] [place] % 6.7 % [facility] Eos % 1.7 % [facility] AUTO BASO % 0.5 % [facility] NEUTROPHIL ABS # 4.0 1.7 - 6.5 x10 3/ul [facility] Immature Gran # 0.0 0.0 - 0.1 x10 3/ul [facility] Absolute Lymphs (auto) 2.9 0.8 - 3.3 x10 3/ul [facility] Absolute Monos (auto) 0.5 0.2 - 0.8 x10 3/ul [facility] Absolute Eos (auto) 0.1 0.0 - 0.5 x10 3/ul [facility] BASOPHIL ABS # 0.0 0.0 - 0.1 x10 3/ul [facility] Nucleat RBC Rel Count 0.0 #/100WBC [facility] NRBC abs 0.00 0.00 - 0.01 x10 3/ul [facility] Absolute Neutrophils 4,000 200 - 8,000 /ul [facility] Blood specimen (specimen) 05/28/2020 1:18 PM PROFESSIONAL BUILDER 05/28/2020 2:05 PM PROFESSIONAL BUILDER Narrative Resulting Agency Comment CLI us Cherelle Corcoran MD LAB BLOOD ORDERAB LES Final Result Performing Organization Address [facility] de Phone Number [address] [phone] * (ABNORMAL) Hemoglobin A1c (05/28/2020 12:34 PM PROFESSIONAL BUILDER) Hemoglobin A1c % 8.5(H) 4.0 - 5.6 % [facility] Comment: ADA 2016 GUIDELINES: ??Initial Diagnostic Criteria ? HbA1c Result: ?Interpretation: ?<5.7% ? Normal ?5.7-6.4% ?At risk for diabetes mellitus ?>=6.5% ?Consistent with diabetes mellitus ??Diabetes monitoring ? Target value (ADA Recommended) ?? <7% Blood specimen (specimen) 05/28/2020 12:34 PM PROFESSIONAL BUILDER 05/28/2020 2:05 PM PROFESSIONAL BUILDER Narrative Resulting Agency Comment CLI us Cherelle Corcoran MD LAB BLOOD ORDERAB LES Final Result Performing Organization Address [facility] de Phone Number [address] [phone] * (ABNORMAL) Comprehensive metabolic panel (05/28/2020 12:34 PM PROFESSIONAL BUILDER) Pathologist [facility] Sodium 142 135 - 145 mmol/L [facility] Potassium 4.9 3.3 - 5.1 mmol/L [facility] Chloride 104 96 - 108 mmol/L [facility] Carbon Dioxide 29 22 - 32 mmol/L [facility] Anion Gap 9 7 - 16 [facility] Glucose 149(H) 70 - 100 mg/dL [facility] BUN 23 8 - 25 mg/dL [facility] Creatinine 1.0 0.5 - 1.1 mg/dL [facility] Comment: NOTE: Estimated GFR (Cockroft-Gault) will NOT be calculated unless patient Height and Weight were entered. Also, Kidney Disease Stage (GFR) and Estimated GFR (Cockroft-Gault) will NOT be calculated if Creatinine result is <0.2. Kidney Disease Stage 71 mL/MIN [facility] Comment: NOTE; ??The GFR is an estimated [...] ? Kidney failure or on dialysis Calcium 10.8(H) 8.6 - 10.3 mg/dL [facility] Total Protein 8.1 6.4 - 8.3 g/dL [facility] Albumin 4.2 3.5 - 5.0 g/dL [facility] Globulin 3.9(H) 2.3 - 3.5 gm/dL [facility] Albumin/Globulin Ratio 1.1 1.1 - 1.8 [facility] Total Bilirubin 0.2 0.0 - 1.2 mg/dL [facility] AST 20 0 - 32 U/L [facility] ALT 12 0 - 33 U/L [facility] Alkaline Phosphatase 129(H) 35 - 104 U/L [facility] Blood specimen (specimen) 05/28/2020 12:34 PM PROFESSIONAL BUILDER 05/28/2020 2:05 PM PROFESSIONAL BUILDER Narrative Resulting Agency Comment CLI Cherelle Corcoran MD LAB BLOOD ORDERAB LES Final Result Performing Organization Address [facility] Co de Phone Number [facility] [address] [phone] * Hepatitis C antibody (05/28/2020 12:34 PM PROFESSIONAL BUILDER) Hep C Ab NONREACT NONREACTIVE [facility] Comment: Siemens CentaurXP using ANA (chemiluminescent immunoassay) technology. NONREACTIVE: Antibodies to Hepatitis C not detected. This does not exclude early acute Hepatitis C infection, possibility of exposure to Hepatitis C, antibodies below detection limit, or to lack of antibody reactivity to the antigen used in this assay. EQUIVOCAL: Antibodies to Hepatitis C may or may not be present. ??Sample to be confirmed by real-time PCR method. REACTIVE: Antibodies to Hepatitis C detected.Sample to be confirmed by real-time PCR method. Blood specimen (specimen) 05/28/2020 12:34 PM PROFESSIONAL BUILDER 05/28/2020 2:05 PM PROFESSIONAL BUILDER Narrative Resulting Agency Comment CLI Cherelle Corcoran MD LAB MICROBIOLOGY - GENERAL ORDERABLES Final Result Performing Organization Address [facility] de Phone Number [facility] [address] [place] [address], [facility] [phone] documented in this encounter Visit Diagnoses Diagnosis Uncontrolled type 2 diabetes mellitus with hyperglycemia (HCC)- Primary Need for hepatitis C screening test Special screening examination for other specified viral diseases Hypercalcemia Iron deficiency anemia, unspecified iron deficiency anemia type Hypertension associated with diabetes (HCC) Unspecified essential hypertension Ulcer of toe of right foot, with fat layer exposed (HCC) Anemia, unspecified type Gastritis without bleeding, unspecified chronicity, unspecified gastritis type documented in this encounter Historical Medications * This list may reflect changes made after this encounter. cephalexin (KEFLEX) 500 mg capsule TK ONE C PO Q 12 H 05/21/2020 07/24/2020 added in this encounter Additional Health Concerns Infection Onset Date Last Indicated Resolved Time MRSA 01/06/2020 01/06/2020 02/06/2021 5:00 AM CDT documented as of this encounter Care Teams Booth Operator Relationship Specialty Start Date End Date Cherelle Corcoran MD PCP - General Family Medicine 08/30/19 Mark Queen MD Consulting Physician Infectious Diseases 01/10/20 documented as of this encounter
--- OUTSIDE RECORDS SUMMARY | 2024-07-04 04:20 | XMS_ITS | Encounter Summary ---
Author Organization [facility] Address [address] [place] [address] Care Team Providers Care Relay Shop Tester Name Role Phone Cherelle Corcoran MD Primary Care Pro vider Mark Queen MD Unavailable [phone] Reason for Visit * Reason Onset Date Comments Mammogram & Bone Density 05/08/2020 Encounter Details Date Type Department Care Team ([facility] Contact Info) Description 05/08/2020 Telephone [facility] Primary Care [address] [place] [address] Cherelle Corcoran MD [address] [place] [address] [address] [place] [address] Mammogram & Bone Density Social History Tobacco Use Types Packs/Day Years Used Date Smoking Tobacco: Never Smokeless Tobacco: Never Alcohol Use Standard Drinks/Week Comments Not Currently 0 (1 standard drink = 0.6 oz pur e alcohol) PHQ-2 Answer Date Recorded PHQ-2 Total Score 0 01/17/2020 Comments No Sex and Gender Information Value Date Recorded Sex Assigned at Not on file Legal Sex Female 9:03 AM SCENARIO WRITER Gender Identity Female 02/08/2020 6:39 PM CDT Sexual Orientation Not on file documented as of this encounter Miscellaneous Notes * Telephone Encounter - Natacha London MA - 05/08/2020 2:32 PM CST This has already been discussed at the previous office visit the son was here for. July is ok for routine mammogram and Dexa as long as pt is not having any symptoms. ARIO WRITER * Telephone Encounter - Martha Grover - 05/08/2020 2:21 PM CST Patients daughter LM on my VM in regards to the orders give to mother for her mammogram and bone density. Stated she called 'facility recommended' - Im assuming she meant [facility]- however stated that they couldn't get her in until Jul. Wanted to know what she should do. Would like you to call her back at [phone]. ARIO WRITER documented in this encounter Plan of Treatment Upcoming Encounters Date Type Department Care Team (Latest Contact Info) Description 07/13/2024 9:00 AM SCENARIO WRITER Hospital Encounter [facility] [address] [place] [address] Jaya Grier MD [address] [place] [address] 07/13/2024 9:00 AM SCENARIO WRITER - 07/13/2024 9:30 AM SCENARIO WRITER Surgery [facility] [address] [place] [address] Jaya Grier MD [address] [place] [address] ESOPHAGOGASTRODUODENOSCOPY Scheduled Procedures Name Priority Associated Diagnoses Date/Ti ct ESOPHAGOGASTRODUODENOSCOPY Anemia, unspecified type Gastritis without bleeding, unspecified chronicity, unspecified gastritis type 07/13/2024 9:00 AM SCENARIO WRITER COLONOSCOPY Iron deficiency anemia due to chronic blood loss documented as of this encounter Visit Diagnoses Not on filedocumented in this encounter Additional Health Concerns Infection Onset Date Last Indicated Resolved Time MRSA 01/06/2020 01/06/2020 02/06/2021 5:00 AM CDT documented as of this encounter Care Teams Relay Shop Tester Relationship Specialty Start Date End Date Cherelle Corcoran MD PCP - General Family Medicine 08/30/19 Mark Queen MD Consulting Physician Infectious Diseases 01/10/20 documented as of this encounter
--- OUTSIDE RECORDS SUMMARY | 2024-07-04 04:20 | XMS_ITS | Encounter Summary ---
Author Organization [facility] Healthcare Address [address] [place] [address] Care Team Providers Care Senior Python Developer Name Role Phone Cherelle Corcoran MD Primary Care Pro vider Mark Queen MD Unavailable [phone] Encounter Details Date Type Department Care Team (Late st Contact Info) Description 07/02/2020 Documentation [facility] Nutrition Counseling and Diabetic Education [address] [place] [address] Social History Tobacco [...] on file Legal Sex Female 9:03 AM BANDSAW OPERATOR Gender Identity Female 02/08/2020 6:39 PM CDT Sexual Orientation Not on file documented as of this encounter Last Filed Vital Signs Vital Sign Reading Time Taken Comments Blood Pressure - - Pulse - - Temperature - - Respiratory Rate - - Oxygen Saturation - - Inhaled Oxygen Concentration - - Weight 56.7 kg (125 lb) 07/02/2020 9:33 AM BANDSAW OPERATOR Wt from 05/28/20 Height 157.5 cm (5' 2.01 ) 07/02/2020 9 :33 AM BANDSAW OPERATOR Body Mass Index 22.86 07/02/2020 9:33 AM BANDSAW OPERATOR documented in this encounter Progress Notes * JosehilariaShahriar hellerie, LUZ MARIA - 07/02/2020 8:34 AM CST Outpatient Nutrition Counseling Assessment Patient Name: Barbara Chakraborty : 1950 Sex: female Encounter Date: 07/02/2020 Time Calculation (min): 30 min Visit #: 2 Pt referred by Tasha Dick MD to nutrition counseling for Diabetes education. She has a past medical history of Arthritis, Depression, Diabetic neuropathy (CMS/HCC), Hypertension, Schizophrenia (CMS/HCC), and Type 2 diabetes mellitus (CMS/HCC). Barbara Chakraborty agreed to outpatient nutrition counseling apt 07/02 @ 8:30 am via phone call. Last Visit interventions: Barbara Chakraborty reports that she has had DM for 2 years now and takes insulin. She reports that she does check blood sugars 3x/day but did not know usual numbers. RD educated on the basics of health and nutrition with diabetes, what foods contain CHOs, how to read a nutrition facts label, CHO counting, and meal planning. Encouraged 3-4 CHO choices per meal and1 CHO choice per snack. Encouraged a balanced plate with whole grains, fruits, vegetables, lean PRO, and low fat dairy. Encouraged choosing unsaturated over saturated fats, reading food labels (5%/20% rule), keeping sodium intakes <2,000 mg per day and choosing diet options over regular. Educated on target blood sugar goals and how to treat a low blood sugar. Encouraged physical activity with a goal of 150 minutes per week or per MD. Patient Center Goals: Follow a consistent CHO diet Assessment Barbara Chakraborty reports that things have been going well since last apt with RD. She states that pain in her feet and fingers is going away. Barbara Chakraborty is not counting CHOs at this time but states that she does not miss medications and checks blood sugars 2x/week ( & ) 2 hours after breakfast (120-230) and before dinner (220). Her HgbA1c decreased from 11.6 (12/14/19) to 8.5 (05/28/20). Current body wt is 125 lbs which represents a 3 lb (2.3%) wt loss since last RD assessment. Diet Recall: ?? Breakfast @ 8 am: eggs (2), nobles (3), and sometimes pancakes (1) or toast (1), spinach ?? Snack: Crackers and peanut butter ?? Lunch @ 1 pm: Spaghetti and pulled chop ?? Dinner: Pork chop, potatoes, salad ?? Snacks: Cookie (2), banana, grapes ?? Beverages: Coffee (Splenda or regular sugar- 1 tsp)- 1-2 cups, water (2 glasses), tea (Splenda) Personal Goals: Learn about a consistent CHO diet Support System: Daughter, Areli Barriers to change: If she misses her meds Exercise: She takes a walk (2-3x/week) for 20-30 minutes Anthropometrics: Ht 157.5 cm (5' 2.01 ) Wt 56.7 kg (125 lb) Comment: Wt from 05/28/20 BMI 22.86 kg/m?? IBW/kg (Calculated) : 49.9 kg Wt Readings from Last 3 Encounters: 07/02/20 56.7 kg (125 lb) 05/28/20 56.7 kg (125 lb) 04/30/20 54.9 kg (121 lb) No results found for: CALCBMI Relevant Medications and Lab Review: HOME MEDICATIONS : Accu-Chek Sangita Plus test strp strip aspirin 325 mg tablet atorvastatin (LIPITOR) 20 mg tablet cephalexin (KEFLEX) 500 mg capsule docusate sodium (COLACE) 100 mg capsule dulaglutide (TRULICITY) 0.75 mg/0.5 mL pen injector ferrous sulfate 325 mg (65 mg of elemental iron) tablet insulin glargine (LANTUS,BASAGLAR) 100 unit/mL (3 mL) insulin pen lisinopriL (PRINIVIL,ZESTRIL) 10 mg tablet meclizine (ANTIVERT) 25 mg tablet omeprazole (PriLOSEC) 20 mg capsule pen needle, diabetic 32 gauge x 3/16 needle sodium chloride 0.9% injection Food/Medication interactions: Statin- grapefruit MVI use: None Lab Results Component Value Date HGBA1C 8.5 (H) 05/28/2020 Lab Results Component Value Date CHOL 211 (H) 04/02/2020 HDL 51 04/02/2020 TRIG 123 04/02/2020 CREATININE 1.0 05/28/2020 BUNSER 24 02/13/2020 SODIUM 142 05/28/2020 POTASSIUM 4.9 05/28/2020 PHOS 3.3 01/11/2020 Nutritional Needs and Diagnosis: Nutrition Diagnosis 1: Food and nutrition-related knowledge deficit Related to: Physiologic issue, Lack of interest Evidenced by: Patient interview, Lab abnormality(HgbA1c 8.5 (05/28/20)) Nutritional Needs: ?? Total Kcal/kg Estimated Needs : 1587.6 Kcal/k ?? Total Protein Estimated Needs (gm): 68.04 Protein Needs Based on g/k.2 ?? Total Fluid Estimated Needs: 1587.6 Fluid Needs Based on : 1 ml/kcal Additional needs or restrictions: 2000mg Sodium, Reduced Fat, Consistent Carbohydrate Intervention: RD reviewed consistent CHO counting including what foods contain CHOs, which foods do not, how manyCHOs per meal, and meal planning. Encouraged Barbara Chakraborty to aim for 3-4 CHO choices per meal and 1CHO choice per snack. Reviewed portion sizing along with meal planning. Reviewed target blood sugargoals and how to treat a low blood sugar (Rule of 15). Encouraged physical activity with a goal of 150 minutes per week or per MD. Monitoring/Evaluation: Evaluation of Learning: Pt needs review/assistance. Pt is in Contemplation stage of change. Expect adherence to recommendations to be fair. Pt to follow up as needed for support/reinforcement. Evelyn Barron MS,RD,LD Diabetes Programing Data: Initial Visit Follow up Visit 1. How often do you count CHO @ meals/snacks E. Never E. Never 1a. (If you answered a-d on the previous question), when you count carbohydrates, how many grams ofcarbs do you typically eat/meal? NA NA 2. How many times do you drink sugar sweetened beverages/sweets A. None D. >5x 3. How many minutes of exercise do you complete weekly? A. 150 minutes or more D. 60-90 minutes 4. How often do you check your blood sugars at home? C. More than 1x per day D. 1-2x per week 5. How often do you miss/forget you dose of prescribed medications. A. Never A. Never 6. On a scale of 1-5, how confident do you feel in your problem solving abilities in relationship to your DM C. 3 B. 4 7. Have you gone ot the dentist within the last 6 months and the eye doctor within the last year? B. Only eye doctor A. Yes 8. How confident do you feel in your coping abilities? F. Not very well B. Well SAW OPERATOR documented in this encounter Plan of Treatment Upcoming Encounters Date Type Department Care Team (Latest Contact Info) Description 07/13/2024 9:00 AM BANDSAW OPERATOR Hospital Encounter [facility] [address] [place] [address] Jaya Grier MD [address] [place] [address] DR GAINES [address] [place] [address] 07/13/2024 9:00 AM BANDSAW OPERATOR - 07/13/2024 9:30 AM BANDSAW OPERATOR Surgery [facility] [address] [place] [address] Jaya Grier MD [address] [place] [address] DR GAINES [address] [place] [address] ESOPHAGOGASTRODUODENOSCOPY Scheduled Procedures Name Priority Associated Diagnoses Date/Ti mi ESOPHAGOGASTRODUODENOSCOPY Anemia, unspecified type Gastritis without bleeding, unspecified chronicity, unspecified gastritis type 07/13/2024 9:00 AM BANDSAW OPERATOR COLONOSCOPY Iron deficiency anemia due to chronic blood loss documented as of this encounter Visit Diagnoses Not on filedocumented in this encounter Additional Health Concerns Infection Onset Date Last Indicated Resolved Time MRSA 01/06/2020 01/06/2020 02/06/2021 5:00 AM CDT documented as of this encounter Care Teams Senior Python Developer Relationship Specialty Start Date End Date Cherelle Corcoran MD PCP - General Family Medicine 08/30/19 Mark Queen MD Consulting Physician Infectious Diseases 01/10/20 documented as of this encounter
--- OUTSIDE RECORDS SUMMARY | 2024-07-04 04:20 | XMS_ITS | Encounter Summary ---
Author Organization [facility] Healthcare Address [address] [place] [address] Care Team Providers Care Security Systems Specialist Name Role Phone Cherelle Corcoran MD Primary Care Pro vider Mark Queen MD Unavailable [phone] Encounter Details Date Type Department Care Team (Latest Contact Info) Description 05/01/2020 9:57 AM CONTROL SYSTEMS TECHNICIAN - 05/01/2020 11:59 PM CONTROL SYSTEMS TECHNICIAN Hospital Encounter [facility] [address] [place] [address] Anat Pelayo, DPM [address] [place] [address] Discharge Disposition: Discharge to home or self [...] on file Legal Sex Female 9:03 AM CONTROL SYSTEMS TECHNICIAN Gender Identity Female 02/08/2020 6:39 PM [...] (Latest Contact Info) Description 07/13/2024 9:00 AM CONTROL SYSTEMS TECHNICIAN Hospital Encounter [facility] [address] [place] [address] Jaya Grier MD [address] [place] [address] DR GAINES [address] [place] [address] 07/13/2024 9:00 AM CONTROL SYSTEMS TECHNICIAN - 07/13/2024 9:30 AM CONTROL SYSTEMS TECHNICIAN Surgery [facility] [address] [place] [address] Jaya Grier MD [address] [place] [address] DR GAINES [address] [place] [address] ESOPHAGOGASTRODUODENOSCOPY Scheduled Procedures Name Priority Associated Diagnoses Date/Ti me ESOPHAGOGASTRODUODENOSCOPY Anemia, unspecified type Gastritis without bleeding, unspecified chronicity, unspecified gastritis type 07/13/2024 9:00 AM CONTROL SYSTEMS TECHNICIAN COLONOSCOPY Iron deficiency anemia due to chronic blood loss documented as of this encounter Visit Diagnoses Not on filedocumented in this encounter Additional Health Concerns Infection Onset Date Last Indicated Resolved Time MRSA 01/06/2020 01/06/2020 02/06/2021 5:00 AM CDT documented as of this encounter Care Teams Security Systems Specialist Relationship Specialty Start Date End Date Cherelle Corcoran MD PCP - General Family Medicine 08/30/19 Mark Queen MD Consulting Physician Infectious Diseases 01/10/20 documented as of this encounter
--- OUTSIDE RECORDS SUMMARY | 2024-07-04 04:20 | XMS_ITS | Encounter Summary ---
Author Organization [facility] Address [address] [facility] [facility] [address] [place] [address] Care Team Providers Care Events Intern Name Role Phone Cherelle Corcoran MD Primary Care Pro vider Mark Queen MD Unavailable [phone] Encounter Details Date Type Department Care Team (Late st Contact Info) Description 05/24/2020 Orders Only [facility] Primary Care [address] [facility] [address] [place] [address] Cherelle Corcoran MD [facility] [address] [place] [address] Social History Tobacco Use Types Packs/Day Years Used Date Smoking Tobacco: Never Smokeless Tobacco: Never Alcohol Use Standard Drinks/Week Comments Not Currently 0 (1 standard drink = 0.6 oz pur e alcohol) PHQ-2 Answer Date Recorded PHQ-2 Total Score 0 01/17/2020 Comments No Sex and Gender Information Value Date Recorded Sex Assigned at Not on file Legal Sex Female 9:03 AM GRILL ASSOCIATE Gender Identity Female 02/08/2020 6:39 PM CDT Sexual Orientation Not on file documented as of this encounter Ordered Prescriptions Prescription Sig Dispense Quantity Refills Last Filled Start Date End Date dulaglutide (TRULICITY) 0.75 mg/0.5 mL pen injector Inject 0.5 mL (0.75 mg total) under the skin once a week 2 mL 05/24/2020 07/09/2020 documented in this encounter Plan of Treatment Upcoming Encounters Date Type Department Care Team (Latest Contact Info) Description 07/13/2024 9:00 AM GRILL ASSOCIATE Hospital Encounter [facility] [address] [place] [address] Jaya Grier MD [address] [place] [address] [address] [place] [address] 07/13/2024 9:00 AM GRILL ASSOCIATE - 07/13/2024 9:30 AM GRILL ASSOCIATE Surgery [facility] [address] [place] [address] Jaya Grier MD [address] [place] [address] [address] GAIN[address] [place] [address] ESOPHAGOGASTRODUODENOSCOPY Scheduled Procedures Name Priority Associated Diagnoses Date/Ti me ESOPHAGOGASTRODUODENOSCOPY Anemia, unspecified type Gastritis without bleeding, unspecified chronicity, unspecified gastritis type 07/13/2024 9:00 AM GRILL ASSOCIATE COLONOSCOPY Iron deficiency anemia due to chronic blood loss documented as of this encounter Visit Diagnoses Not on filedocumented in this encounter Discontinued Medications Medication Sig Discontinue Reason Start Date End Da te Victoza 2-Vivek 0.6 mg/0.1 mL (18 mg/3 mL) injectionIndications:Uncon trolled type 2 diabetes mellitus with hyperglycemia (HCC) Inject 1.2 mg under the skin daily Alternate therapy 01/17/2020 05/24/2020 documented as of this encounter Additional Health Concerns Infection Onset Date Last Indicated Resolved Time MRSA 01/06/2020 01/06/2020 02/06/2021 5:00 AM CDT documented as of this encounter Care Teams Events Intern Relationship Specialty Start Date End Date Cherelle Corcoran MD PCP - General Family Medicine 08/30/19 Mark Queen MD Consulting Physician Infectious Diseases 01/10/20 documented as of this encounter
--- OUTSIDE RECORDS SUMMARY | 2024-07-04 04:20 | XMS_ITS | Encounter Summary ---
Author Organization [facility] Address [address] [facility] [address] [place] [address] Care Team Providers Care Clay Products Machine Operator Name Role Phone Cherelle Corcoran MD Primary Care Pro vider Mark Queen MD Unavailable [phone] Reason for Visit * Reason Onset Date Comments In Office appt vs ER visit? 05/16/2020 Encounter Details Date Type Department Care Team ([facility] Contact Info) Description 05/16/2020 Telephone [facility] Primary Care [address] [place] [address] [address] [place] [address] Cherelle Corcoran MD [address] [place] [address] [address] [place] [address] In Office appt vs ER visit? Social History Tobacco Use Types Packs/Day Years Used Date Smoking Tobacco: Never Smokeless Tobacco: Never Alcohol Use Standard Drinks/Week Comments Not Currently 0 (1 standard drink = 0.6 oz pur e alcohol) PHQ-2 Answer Date Recorded PHQ-2 Total Score 0 01/17/2020 Comments No Sex and Gender Information Value Date Recorded Sex Assigned at Not on file Legal Sex Female 9:03 AM ELECTRONIC WARFARE LINGUIST Gender Identity Female 02/08/2020 6:39 PM CDT Sexual Orientation Not on file documented as of this encounter Miscellaneous Notes * Telephone Encounter - Cherelle Corcoarn MD - 05/16/2020 2:04 PM CST Recommend ER given uncontrolled diabetes mellitus, history of osteo and dizziness. TRONIC WARFARE LINGUIST * Telephone Encounter - Natacha London MA - 05/16/2020 1:21 PM CST LMOR TRONIC WARFARE LINGUIST * Telephone Encounter - Amie Sorto - 05/16/2020 1:16 PM CST Please see... TRONIC WARFARE LINGUIST * Telephone Encounter - Romelia Taylor - 05/16/2020 12:51 PM CST Dtr/Ursula calling in to ask if appt needed or should patient go to ER due to dizziness (med change), cough, runny nose and headaches. Patient lives w/Dtr who was + Covid in Feb; patient not having fever, sore throat, vomiting or diarrhea. Please advise. Vianney Irving cp: [phone]; OK to LM TRONIC WARFARE LINGUIST documented in this encounter Plan of Treatment Upcoming Encounters Date Type Department Care Team (Latest Contact Info) Description 07/13/2024 9:00 AM ELECTRONIC WARFARE LINGUIST Hospital Encounter [facility] [address] [place] [address] Jaya Grier MD [facility] [facility] [address] GAINES [address] [place] [address] 07/13/2024 9:00 AM ELECTRONIC WARFARE LINGUIST - 07/13/2024 9:30 AM ELECTRONIC WARFARE LINGUIST Surgery [facility] [address] [place] [address] Jaya Grier MD [facility] [facility] [place] [address] ESOPHAGOGASTRODUODENOSCOPY Scheduled Procedures Name Priority Associated Diagnoses Date/Ti me ESOPHAGOGASTRODUODENOSCOPY Anemia, unspecified type Gastritis without bleeding, unspecified chronicity, unspecified gastritis type 07/13/2024 9:00 AM ELECTRONIC WARFARE LINGUIST COLONOSCOPY Iron deficiency anemia due to chronic blood loss documented as of this encounter Visit Diagnoses Not on filedocumented in this encounter Additional Health Concerns Infection Onset Date Last Indicated Resolved Time MRSA 01/06/2020 01/06/2020 02/06/2021 5:00 AM CDT documented as of this encounter Care Teams Clay Products Machine Operator Relationship Specialty Start Date End Date Cherelle Corcoran MD PCP - General Family Medicine 08/30/19 Mark Queen MD Consulting Physician Infectious Diseases 01/10/20 documented as of this encounter
--- OUTSIDE RECORDS SUMMARY | 2024-07-04 04:20 | XMS_ITS | Encounter Summary ---
Author Organization [facility] Healthcare Address [address] [place] [address] Care Team Providers Care Auto Fleet Manager Name Role Phone Cherelle Corcoran MD Primary Care Pro vider Mark Queen MD Unavailable [phone]- [phone] Encounter Details Date Type Department Care Team (Late st Contact Info) Description 05/28/2020 12:27 PM MARKETING SALES REPRESENTATIVE Hospital Encounter [facility] Cherelle Corcoran MD [facility] [address] Social History Tobacco Use Types Packs/Day Years Used Date Smoking Tobacco: Never Smokeless Tobacco: Never Alcohol Use Standard Drinks/Week Comments Not Currently 0 (1 standard drink = 0.6 oz pur e alcohol) PHQ-2 Answer Date Recorded PHQ-2 Total Score 0 01/17/2020 Comments No Sex and Gender Information Value Date Recorded Sex Assigned at Not on file Legal Sex Female 9:03 AM MARKETING SALES REPRESENTATIVE Gender Identity Female 02/08/2020 6:39 PM [...] nightly 10 pen 1 02/14/2020 05/31/20 20 cephalexin (KEFLEX) 500 mg capsule TK ONE [...] a week 2 mL 05/24/2020 07/09/19 21 lisinopriL (PRINIVIL,ZESTRIL) 10 mg tabletIndications: Essential [...] (Latest Contact Info) Description 07/13/2024 9:00 AM MARKETING SALES REPRESENTATIVE Hospital Encounter [facility] [address] [place] [address] Jaya Grier MD [address] [facility] [address] GA[address]ES [address] [place] [address] 07/13/2024 9:00 AM MARKETING SALES REPRESENTATIVE - 07/13/2024 9:30 AM MARKETING SALES REPRESENTATIVE Surgery [facility] [address] [place] [address] Jaya Grier MD [facility] [facility] [address] GAINES [address] [place] [address] ESOPHAGOGASTRODUODENOSCOPY Scheduled Procedures Name Priority Associated Diagnoses Date/Ti me ESOPHAGOGASTRODUODENOSCOPY Anemia, unspecified type Gastritis without bleeding, unspecified chronicity, unspecified gastritis type 07/13/2024 9:00 AM MARKETING SALES REPRESENTATIVE COLONOSCOPY Iron deficiency anemia due to chronic blood loss documented as of this encounter Visit Diagnoses Not on filedocumented in this encounter Additional Health Concerns Infection Onset Date Last Indicated Resolved Time MRSA 01/06/2020 01/06/2020 02/06/2021 5:00 AM CDT documented as of this encounter Care Teams Auto Fleet Manager Relationship Specialty Start Date End Date Cherelle Corcoran MD PCP - General Family Medicine 08/30/19 Mark Queen MD Consulting Physician Infectious Diseases 01/10/20 documented as of this encounter
--- OUTSIDE RECORDS SUMMARY | 2024-07-04 04:21 | XMS_ITS | Encounter Summary ---
Author Organization [facility] Healthcare Address [address] [place] [address] Care Team Providers Care Political Theory Professor Name Role Phone Cherelle Corcoran MD Primary Care Pro vider Mark Queen MD Unavailable [phone] Encounter Details Date Type Department Care Team (Late st Contact Info) Description 02/13/2020 12:15 PM CDT Lab [address] [address] Social History Tobacco Use Types Packs/Day Years Used Date Smoking Tobacco: Never Smokeless Tobacco: Never Alcohol Use Standard Drinks/Week Comments Not Currently 0 (1 standard drink = 0.6 oz pur e alcohol) PHQ-2 Answer Date Recorded PHQ-2 Total Score 0 01/17/2020 Comments No Sex and Gender Information Value Date Recorded Sex Assigned at Not on file Legal Sex Female 9:03 AM PERSONNEL ASSISTANT Gender Identity Female 02/08/2020 6:39 PM CDT Sexual Orientation Not on file documented as of this encounter Plan of Treatment Upcoming Encounters Date Type Department Care Team (Latest Contact Info) Description 07/13/2024 9:00 AM PERSONNEL ASSISTANT Hospital Encounter [facility] GI Lab [address] [place] [address] Jaya Grier MD [address] [address] 07/13/2024 9:00 AM PERSONNEL ASSISTANT - 07/13/2024 9:30 AM PERSONNEL ASSISTANT Surgery [facility] GI Lab [address] [place] [address] Jaya Grier MD [address] [facility] [address] [place] [id number] ESOPHAGOGASTRODUODENOSCOPY Scheduled Procedures Name Priority Associated Diagnoses Date/Ti me ESOPHAGOGASTRODUODENOSCOPY Anemia, unspecified type Gastritis without bleeding, unspecified chronicity, unspecified gastritis type 07/13/2024 9:00 AM PERSONNEL ASSISTANT COLONOSCOPY Iron deficiency anemia due to chronic blood loss documented as of this encounter Procedures Procedure Name Priority Date/Time Associated Diagnosis Comments EGFR STAT 02/13/2020 9:00 AM CDT DIFFERENTIAL AUTO STAT 02/13/2020 9:0 0 AM CDT CBC WITH AUTO DIFFERENTIAL STAT 02/13/2020 9:00 AM CDT ERYTHROCYTE SEDIMENTATION RATE STAT 02/13/2020 9:00 AM CDT VANCOMYCIN LEVEL TROUGH STAT 02/13/2020 9:00 AM CDT COMPREHENSIVE METABOLIC PANEL STAT 02/13/2020 9:00 AM CDT documented in this encounter Results * eGFR (02/13/2020 9:00 AM CDT) eGFR 45 mL/min/1.7 3 m2 [facility] ([place]) Comment: Interpretive Data Reference Interval Normal ?>/= 90 mL/min/1.73m2 Mildly decreased* ? 60 - 89 mL/min/1.73m2 Mildly to moderately decreased ?45 - 59 mL/min/1.73m2 Moderately to severely decreased ??30 - 44 mL/min/1.73m2 Severely decreased ?15 - 29 mL/min/1.73m2 Kidney Failure ?< 15 ??mL/min/1.73m2 *Relative to young adult level If -Luxembourger multiply value by 1.16. Estimated glomerular filtration [...] Current interpretive data was last reviewed 2016. Blood specimen (specimen) 02/13/2020 9:00 AM CDT 02/13/2020 12:26 PM CDT us Mark Queen MD LAB BLOOD ORDERABLES Final Result [facility] ([place]) 1 [facility] Department [place] [address] * Differential, auto (02/13/2020 9:00 AM CDT) Neutrophil abs 6.5 1.7 - 6.5 K/cumm [facility] ([place]) Imm gran abs 0.0 0.0 - 0.1 K/cumm [facility] ([place]) Lymphocyte abs 1.6 0.8 - 3.3 K/cumm [facility] ([place]) Monocyte abs 0.5 0.2 - 0.8 K/cumm [facility] ([place]) Eosinophil abs 0.2 0.0 - 0.5 K/cumm [facility] ([place]) Basophil abs 0.1 0.0 - 0.1 K/cumm [facility] ([place]) Neutrophil pct 73.3 % [facility] ([place]) Comment: Interpretive Data Percent cell count reference ranges are not reported, since discordance with absolute values may lead to misinterpretation of CBC data. Current Interpretive Data was last revised on 2017. Imm gran pct 0.2 % [facility] ([place]) Comment: Interpretive Data Percent cell count reference ranges are not reported, since discordance with absolute values may lead to misinterpretation of CBC data. Current Interpretive Data was last revised on 2017. Lymphocyte pct 17.4 % [facility] ([place]) Comment: Interpretive Data Percent cell count reference ranges are not reported, since discordance with absolute values may lead to misinterpretation of CBC data. Current Interpretive Data was last revised on 2017. Monocyte pct 5.9 % [facility] ([place]) Comment: Interpretive Data Percent cell count reference ranges are not reported, since discordance with absolute values may lead to misinterpretation of CBC data. Current Interpretive Data was last revised on 2017. Eosinophil pct 2.6 % [facility] ([place]) Comment: Interpretive Data Percent cell count reference ranges are not reported, since discordance with absolute values may lead to misinterpretation of CBC data. Current Interpretive Data was last revised on 2017. Basophil pct 0.6 % [facility] ([place]) Comment: Interpretive Data Percent cell count reference ranges are not reported, since discordance with absolute values may lead to misinterpretation of CBC data. Current Interpretive Data was last revised on 2017. Blood specimen (specimen) 02/13/2020 9:00 AM CDT 02/13/2020 12:17 PM CDT us Mark Queen MD LAB BLOOD ORDERABLES Final Result [facility] ([place]) 1 [facility] Department [place] [address] * Vancomycin, trough (02/13/2020 9:00 AM CDT) Vancomycin trough 16.0 15.0 - 20.0 mcg/mL [facility] ([place]) Comment: Intepretive Data Therapeutic range: ??15 - 20 mcg/ml Current interpretive data was last revised on 2014 Blood specimen (specimen) 02/13/2020 9:00 AM CDT 02/13/2020 12:18 PM CDT us Mark Queen MD LAB BLOOD ORDERABLES Final Result [facility] ([place]) 1 [facility] [place] [address] * (ABNORMAL) Erythrocyte sedimentation rate (02/13/2020 9:00 AM CDT) Pathologist [facility] Erythrocyte sedimentation rate 70(H) 1 - 30 mm/hr [facility] ([place]) Comment:Testing performed by : [facility], [address] [place] [address], [place]., [address] Blood specimen (specimen) 02/13/2020 9:00 AM CDT 02/13/2020 12:17 PM CDT us Mark Queen MD LAB BLOOD ORDERABLES Final Result Performing Organization Address City/[facility]/ZIP Co de Phone Number [facility] ([place]) 1 [facility] [place] [address] * (ABNORMAL) CBC with auto differential (02/13/2020 9:00 AM CDT) [facility] WBC 8.9 3.8 - 9.9 K/cumm [facility] Hgb 9.3(L) 11.9 - 15.5 g/dL [facility] Hct 30.8(L) 35.6 - 45.5 % [facility] ([place]) Plt 318 150 - 400 K/cumm [facility] ([place] MPV 11.3 9.1 - 12.3 fL [facility] RBC 3.32(L) 3.90 - 5.20 M/cumm [facility] ([place]) MCV 92.8 81.3 - 96.4 fL [facility] ([place]) MCH 28.0 27.1 - 33.3 pg [facility] ([place]) MCHC 30.2(L) 32.3 - 35.7 g/dL [facility] RDW CV 16.6(H) 11.1 - 14.9 % [facility] ([place]) RDW SD 56.7(H) 35.7 - 48.1 fL [facility] NRBC abs 0.00 0.00 - 0.01 K/cumm [facility] ([place]) Blood specimen (specimen) 02/13/2020 9:00 AM CDT 02/13/2020 12:17 PM CDT us Mark Queen MD LAB BLOOD ORDERABLES Final Result [facility] ([place]) 1 [facility] Department [place] [address] * (ABNORMAL) Comprehensive metabolic panel (02/13/2020 9:00 AM CDT) Sodium 143 135 - 145 mmol/L [facility] ([place]) Potassium, pl 3.5 3.3 - 4.9 mmol/L [facility] ([place]) Chloride 105 97 - 110 mmol/L [facility] ([place]) CO2 28 22 - 32 mmol/L [facility] ([place]) Anion gap 9 2 - 15 mmol/L [facility] ([place]) BUN 24 8 - 25 mg/dL [facility] ([place]) Creatinine 1.23(H) 0.60 - 1.10 mg/dL [facility] ([place]) Glucose 282(H) 70 - 199 mg/dL [facility] ([place]) Comment: Interpretive Data Fasting glucose >/= 126 [...] 2017. Calcium 9.7 8.5 - 10.3 mg/dL [facility] ([place]) Bilirubin, total <0.2 0.1 - 1.2 mg/dL [facility] ([place]) Protein, pl 7.3 6.5 - 8.5 g/dL [facility] ([place]) Albumin 3.4(L) 3.5 - 5.0 g/dL [facility] ([place]) Alk phos 258(H) 40 - 130 Units/L [facility] ([place]) ALT 29 7 - 45 Units/L [facility] ([place]) AST 30 10 - 45 Units/L [facility] ([place]) Blood specimen (specimen) 02/13/2020 9:00 AM CDT 02/13/2020 12:16 PM CDT us Mark Queen MD LAB BLOOD ORDERABLES Final Result [facility] ([place]) 1 [facility] Department [place] [address] documented in this encounter Visit Diagnoses Not on filedocumented in this encounter Additional Health Concerns Infection Onset Date Last Indicated Resolved Time MRSA 01/06/2020 01/06/2020 02/06/2021 5:00 AM CDT documented as of this encounter Care Teams Political Theory Professor Relationship Specialty Start Date End Date Cherelle Corcoran MD PCP - General Family Medicine 08/30/19 Mark Queen MD Consulting Physician Infectious Diseases 01/10/20 documented as of this encounter
--- OUTSIDE RECORDS SUMMARY | 2024-07-04 04:21 | XMS_ITS | Encounter Summary ---
Author Organization [facility] Address [address] [facility] [address] [place] [address] Care Team Providers Care Copy Messenger Name Role Phone Cherelle Corcoran MD Primary Care Pro vider Mark Queen MD Unavailable [phone] Encounter Details Date Type Department Care Team (Late st Contact Info) Description 04/02/2020 Telephone [facility] Primary Care [address] [facility] [address] [place] [address] [facility] [address] [place] [address] Social History Tobacco Use Types Packs/Day Years Used Date Smoking Tobacco: Never Smokeless Tobacco: Never Alcohol Use Standard Drinks/Week Comments Not Currently 0 (1 standard drink = 0.6 oz pur e alcohol) PHQ-2 Answer Date Recorded PHQ-2 Total Score 0 01/17/2020 Comments No Sex and Gender Information Value Date Recorded Sex Assigned at Not on file Legal Sex Female 9:03 AM TOP FLAVOR ATTENDANT Gender Identity Female 02/08/2020 6:39 PM CDT Sexual Orientation Not on file documented as of this encounter Miscellaneous Notes * Telephone Encounter - Natacha London MA - 04/02/2020 1:53 PM CDT Spoke with pt daughter and informed negative for DVT and to follow up with wound care. Daughter states she has an appointment tomorrow. * Telephone Encounter - Nikki Vargas - 04/02/2020 1:09 PM CDT Patients DVT is negative documented in this encounter Plan of Treatment Upcoming Encounters Date Type Department Care Team (Latest Contact Info) Description 07/13/2024 9:00 AM TOP FLAVOR ATTENDANT Hospital Encounter [facility] GI Lab [address] [place] [address] Jaya Grier MD [facility] [facility] [address] [place] [address] 07/13/2024 9:00 AM TOP FLAVOR ATTENDANT - 07/13/2024 9:30 AM TOP FLAVOR ATTENDANT Surgery [facility] GI Lab [address] [place] [address] Jaya Grier MD [facility] [facility] [address] [place] [id number] ESOPHAGOGASTRODUODENOSCOPY Scheduled Procedures Name Priority Associated Diagnoses Date/Ti me ESOPHAGOGASTRODUODENOSCOPY Anemia, unspecified type Gastritis without bleeding, unspecified chronicity, unspecified gastritis type 07/13/2024 9:00 AM TOP FLAVOR ATTENDANT COLONOSCOPY Iron deficiency anemia due to chronic blood loss documented as of this encounter Visit Diagnoses Not on filedocumented in this encounter Additional Health Concerns Infection Onset Date Last Indicated Resolved Time MRSA 01/06/2020 01/06/2020 02/06/2021 5:00 AM CDT documented as of this encounter Care Teams Copy Messenger Relationship Specialty Start Date End Date Cherelle Corcoran MD PCP - General Family Medicine 08/30/19 Mark Queen MD Consulting Physician Infectious Diseases 01/10/20 documented as of this encounter
--- OUTSIDE RECORDS SUMMARY | 2024-07-04 04:21 | XMS_ITS | Encounter Summary ---
Author Organization [facility] Address [address] [place] [address] Phone Care Team Providers Care Administrative Director Name Role Phone Cherelle Corcoran MD Primary Care Pro vider Mark Queen MD Unavailable [phone] Reason for Visit * Auth/Cert Specialty Diagnoses / Procedures Referred By Maryse t Referred To Contact Referral ID Status Reason Start Date Expiration Date Visits Re quested Visits Authorized [id number] 1 1 Encounter Details Date Type Department Care Team (Late st Contact Info) Description 02/16/2020 8:00 AM CDT Home Care Visit [facility] Home Health [place] [address] [address] [place] [address] Brigid Keenan RN SN OASIS DISCHARGE Social History Tobacco [...] file Legal Sex Female 9:03 AM HEAD PASTRY CHEF Gender Identity Female 02/08/2020 6:39 PM CDT Sexual Orientation Not on file documented as of this encounter Last Filed Vital Signs Vital Sign Reading Time Taken Comments Blood Pressure 124/68 02/16/2020 8:36 AM CDT Pulse 94 02/16/2020 8:36 AM CDT Temperature 36.4 ??C (97.6 ??F) 02/16/2020 8:36 AM CD T Respiratory Rate 18 02/16/2020 8:36 AM CDT Oxygen Saturation 97% 02/16/2020 8:36 AM CDT Inhaled Oxygen Concentration - - Weight - - Height - - Body Mass Index - - documented in this encounter Plan of Treatment Upcoming Encounters Date Type Department Care Team (Latest Contact Info) Description 07/13/2024 9:00 AM HEAD PASTRY CHEF Hospital Encounter [facility] GI Lab [address] [place] [address] Jaya Grier MD [facility] [address] [place] [address] 07/13/2024 9:00 AM HEAD PASTRY CHEF - 07/13/2024 9:30 AM HEAD PASTRY CHEF Surgery [facility] GI Lab [address] [place] [address] Jaya Grier MD [facility] [address] [place] [id number] ESOPHAGOGASTRODUODENOSCOPY Scheduled Procedures Name Priority Associated Diagnoses Date/Ti ne ESOPHAGOGASTRODUODENOSCOPY Anemia, unspecified type Gastritis without bleeding, unspecified chronicity, unspecified gastritis type 07/13/2024 9:00 AM HEAD PASTRY CHEF COLONOSCOPY Iron deficiency anemia due to chronic blood loss documented as of this encounter Visit Diagnoses Not on filedocumented in this encounter Additional Health Concerns Infection Onset Date Last Indicated Resolved Time MRSA 01/06/2020 01/06/2020 02/06/2021 5:00 AM CDT documented as of this encounter Home Health Visit - Care Plan Visit Details Visit Type -SN OASIS Dischar ge Discipline -Fdc Problems Problem Description Start Date Status Goals Interve ntions Homebound Status Disciplines: Fdc Patient's homebound status 10/23/2019 Active 1 goal linked to scheduled/documen bruno intervention 1 goal intervention scheduled/document ed in this visit Monitor patient's vital signs every home health visit Disciplines: Fdc Monitor patient's vital signs every home health visit. 10/23/2019 Active 1 goal linked to scheduled/documen bruno intervention 1 goal intervention scheduled/document ed in this visit Infection Prevention Disciplines: Fdc Infection Prevention 10/23/2019 Active 1 goal linked to scheduled/documen bruno intervention 1 goal intervention scheduled/document ed in this visit Learning/Teac jasiel Needs - Diabetes Disciplines: Fdc Learning and teaching needs associated with diagnosis 10/23/2019 Active 1 goal linked to scheduled/documen bruno intervention 1 goal intervention scheduled/document ed in this visit IV Therapy-Manag ement, Education, and Maintenance Disciplines: Fdc Teaching and learning needs for performing home IV therapy 01/12/2020 Active - 1 problem intervention scheduled/document ed in this visit Goals Goal Associated Problem Outcome Goal Met? Visit Notes Patient recieves care at the most appropriate care setting Description: Patient receives care at the most appropriate care setting. Homebound Status No Measure vital signs during every home health visit during episode of care Description: Home grinder set up operator to measure vital signs during every home health visit during episode of care. Monitor patient's vital signs every home health visit No Verbalize signs of infection Description: Verbalize signs of infection Infection Prevention No Demonstrate adequate knowledge of Diabetes Description: Patient/caregiver will demonstrate adequate knowledge of diabetes as evidenced by the ability to perform blood sugar monitoring, care of feet, skin and eyes and signs/symptoms of altered glycemic states and their treatment by the end of the episode of care. Learning/Teaching Needs - Diabetes No Interventions Intervention Associated Problem/Goal Status Variance Visit Notes Homebound Status Description: Patient is homebound due to unsteady gait, diabetis, neuropathy, risk for falls, open wound Problem:Homebound Status Goal:Patient recieves care at the most appropriate care setting Completed Patient is homebound due to unsteady gait, diabetis, neuropathy, risk for falls, open wound Monitor Vital Signs Description: Monitor blood pressure, [...] Prevention Goal:Verbalize signs of infection Completed Patient and daughter verbalize understanding Blood glucose monitoring Description: Patient/caregiver to perform blood sugar testing and record in log. Frequency of testing bid and prn for feelings of hypo or hyperglycemia Problem:Learning/Teac jasiel Needs - Diabetes Goal:Demonstrate adequate knowledge of Diabetes Completed Patient returned correct demo of checking own blood sugar and understands the importance of checking blood sugars routinely IV Discontinuation Description: Instruct patient/caregiver on how to remove peripheral IV after last infusion per MD order or instruct on process of removal of Central Venous Catheter if it is to be removed in the home after infusion therapy is completed by Skilled Nurse. Problem:IV Therapy-Management, Education, and Maintenance Completed PICC line discontinued without difficulty. Patient tolerated well. Instructed to leave occlusive dressing intact for 24 hours. Patient and daughter verbalize understanding. documented in this encounter Home Health Visit - Actions and Narratives Actions Ursula agrees with need to disc harge this visit. documented in this encounter Care Teams Administrative Director Relationship Specialty Start Date End Date Cherelle Corcoran MD PCP - General Family Medicine 08/30/19 Mark Queen MD Consulting Physician Infectious Diseases 01/10/20 documented as of this encounter
--- OUTSIDE RECORDS SUMMARY | 2024-07-04 04:21 | XMS_ITS | Encounter Summary ---
Author Organization [facility] Healthcare Address [address] [place] [address] Care Team Providers Care Photo Studio Assistant Name Role Phone Cherelle Corcoran MD Primary Care Pro vider Mark Queen MD Unavailable [phone] Encounter Details Date Type Department Care Team (Late st Contact Info) Description 03/28/2020 Documentation [facility] Nutrition Counseling and Diabetic Education [address] [place] [address] Social History [...] Legal Sex Female 9:03 AM ORDER DISPATCHER Gender Identity Female 02/08/2020 6:39 PM CDT Sexual Orientation Not on file documented as of this encounter Last Filed Vital Signs Vital Sign Reading Time Taken Comments Blood Pressure - - Pulse - - Temperature - - Respiratory Rate - - Oxygen Saturation - - Inhaled Oxygen Concentration - - Weight 58.5 kg (128 lb 15.5 oz) 03/28/2020 4:03 PM CDT Wt from 02/14/20 Height 157.5 cm (5' 2.01 ) 03/28/2020 4 :03 PM CDT Body Mass Index 23.58 03/28/2020 4:03 PM CDT documented in this encounter Progress Notes * Evelyn Barron, RD - 03/28/2020 10:09 AM CDT Outpatient Nutrition Counseling Assessment Patient Name: Barbara Chakraborty : 1950 Sex: female Encounter Date: 03/28/2020 Time Calculation (min): 40 min Visit #: 1 Pt referred by Tasha Dick MD to nutrition counseling for Diabetes education. She has a past medical history of Arthritis, Depression, Diabetic neuropathy (CMS/HCC), Hypertension, Schizophrenia (CMS/HCC), and Type 2 diabetes mellitus (CMS/HCC). Barbara Chakraborty agreed to outpatient nutrition counseling apt 03/28 @ 9:45 am via phone call. Assessment Barbara Chakraborty reports that she has had DM for 2 years now and takes insulin. She states that she has talked to a RD last month. She reports that she does take blood sugars 3x/daily but could not really tell RD what these blood sugars are usually running. Pt seemed confused during apt with RD and not receptive to education. Personal Goals: Learn consistent CHO diet Diet Recall: Breakfast: eggs (2) and nobles (3) Lunch: [place] (turkey with 2 slices whole wheat bread, and hager) and milk (2%), potato chips (1 bag) Dinner: chicken, string beans, bread Snack: No snacks Beverages: Regular tea (1), water (1-2 glasses), Coffee with Splenda Support System: DaughterAreli Barriers to change: If she misses her meds Exercise: Walks 1-2 hours/day Anthropometrics: Ht 157.5 cm (5' 2.01 ) Wt 58.5 kg (128 lb 15.5 oz) Comment: Wt from 02/14/20 BMI 23.58 kg/m?? IBW/kg (Calculated) : 49.9 kg Wt Readings from Last 3 Encounters: 03/28/20 58.5 kg (128 lb 15.5 oz) 02/14/20 58.5 kg (129 lb) 02/09/20 56.5 kg (124 lb 9.6 oz) No results found for: CALCBMI Relevant Medications and Lab Review: HOME MEDICATIONS : Accu-Chek Sangita Plus test strp strip aspirin 325 mg tablet Basaglar KwikPen U-100 Insulin 100 unit/mL (3 mL) insulin pen docusate sodium (COLACE) 100 mg capsule ferrous sulfate 325 mg (65 mg of elemental iron) tablet gabapentin (NEURONTIN) 400 mg capsule lisinopriL (PRINIVIL,ZESTRIL) 10 mg tablet pen needle, diabetic 32 gauge x 3/16 needle sodium chloride 0.9% injection Victoza 2-Vivek 0.6 mg/0.1 mL (18 mg/3 mL) injection Food/Medication interactions: None MVI use: None Lab Results Component Value Date HGBA1C 11.6 (H) 12/14/2019 Lab Results Component Value Date CREATININE 1.23 (H) 02/13/2020 BUNSER 24 02/13/2020 SODIUM 143 02/13/2020 POTASSIUM 3.5 02/13/2020 PHOS 3.3 01/11/2020 Nutritional Needs and Diagnosis: Nutrition Diagnosis 1: Altered nutrition-related laboratory values Related to: Physiologic issue Evidenced by: Lab abnormality(HgbA1c 11.6 (12/14/19)) Nutritional Needs: ?? Total Kcal/kg Estimated Needs : 1579.5 Kcal/k ?? Total Protein Estimated Needs (gm): 70.2 Protein Needs Based on g/k.2 ?? Total Fluid Estimated Needs: 1579.5 Fluid Needs Based on : 1 ml/kcal Additional needs or restrictions: 2000mg Sodium, Reduced Fat, Consistent Carbohydrate Intervention: Primary teaching and session discussion focused on basics of health and nutrition with diabetes, what foods contain carbohydrates, how to read nutrition facts labels, carbohydrate counting, and meal planning. Pt provided with sample meal plan, recipes, grocery shopping list, carbohydrate counting booklet and relevant handouts. Recommended Barbara Chakraborty consume 3-4 carbohydrate choices per meal and 1 carb choice per snack. Provided meal plan with example carbohydrate choice serving sizes, protein recommendations (1-3 oz per meal), non starchy vegetable recommendations (1/2 plate), & recommendations for fat intakes (1-2 servings per meal). Discussed choosing lean protein and opting for unsaturated fats over saturated fats. Encouraged to limit sodium intakes <2,000 mg per day. Discussed ways to limit sodium such as eating more fresh and less processed, rinsing canned goods, reading food labels (5%/20% rule), and seasoning with other flavors than salt. Encouraged to avoid added sugars and instead choose diet or sugar free. Discussed target blood sugar goals and how to treat a low blood sugar (Rule of 15). Encouraged Barbara Chakraborty to incorporate physical activity as permitted by MD with overall goal of 150 minutes per week. Patient Center Goals: Follow a consistent CHO diet Monitoring/Evaluation: Evaluation of Learning: Pt needs further instruction. Pt is in Precontemplation stage of change. Expect adherence to recommendations to be poor. Pt to follow up 06/27/20 @ 2:30 pm for support/reinforcement. Evelyn Barron MS,RD,LD Diabetes Programing Data: Initial Visit 1. How often do you count CHO @ meals/snacks E. Never 1a. (If you answered a-d on the previous question), when you count carbohydrates, how many grams ofcarbs do you typically eat/meal? NA 2. How many times do you drink sugar sweetened beverages/sweets A. None 3. How many minutes of exercise do you complete weekly? A. 150 minutes or more 4. How often do you check your blood sugars at home? C. More than 1x per day 5. How often do you miss/forget you dose of prescribed medications. A. Never 6. On a scale of 1-5, how confident do you feel in your problem solving abilities in relationship to your DM C. 3 7. Have you gone ot the dentist within the last 6 months and the eye doctor within the last year? B. Only eye doctor 8. How confident do you feel in your coping abilities? E. Not very well documented in this encounter Plan of Treatment Upcoming Encounters Date Type Department Care Team (Latest Contact Info) Description 07/13/2024 9:00 AM ORDER DISPATCHER Hospital Encounter [facility] GI Lab [address] [place], [place] [id number] Jaya Grier MD [address] [facility] [address] [id number] 07/13/2024 9:00 AM ORDER DISPATCHER - 07/13/2024 9:30 AM ORDER DISPATCHER Surgery [facility] GI Lab [address] [place] [address] Jaya Grier MD [address] [facility] [address] [place] [id number] ESOPHAGOGASTRODUODENOSCOPY Scheduled Procedures Name Priority Associated Diagnoses Date/Ti id ESOPHAGOGASTRODUODENOSCOPY Anemia, unspecified type Gastritis without bleeding, unspecified chronicity, unspecified gastritis type 07/13/2024 9:00 AM ORDER DISPATCHER COLONOSCOPY Iron deficiency anemia due to chronic blood loss documented as of this encounter Visit Diagnoses Not on filedocumented in this encounter Additional Health Concerns Infection Onset Date Last Indicated Resolved Time MRSA 01/06/2020 01/06/2020 02/06/2021 5:00 AM CDT documented as of this encounter Care Teams Photo Studio Assistant Relationship Specialty Start Date End Date Cherelle Corcoran MD PCP - General Family Medicine 08/30/19 Mark Queen MD Consulting Physician Infectious Diseases 01/10/20 documented as of this encounter
--- OUTSIDE RECORDS SUMMARY | 2024-07-04 04:21 | XMS_ITS | Encounter Summary ---
Author Organization [facility] Home Care Servic es Address [address] [place] [address] Phone Care Team Providers Care Director Information Security Name Role Phone Cherelle Corcoran MD Primary Care Pro vider Mark Queen MD Unavailable [phone] Reason for Visit * Auth/Cert Specialty Diagnoses / Procedures Referred By Maryse t Referred To Contact Referral ID Status Reason Start Date Expiration Date Visits Re quested Visits Authorized [id number] 1 1 Encounter Details Date Type Department Care Team (Late st Contact Info) Description 02/09/2020 Home Care Visit [facility] Home Health - [address] [address] [address] [place] [address] Brigid Keenan, CRYPTOLOGIC TECHNICIAN OPERATOR/ANALYST SCREENING CASE COMMUNICATION Social History Tobacco Use Types Packs/Day Years Used Date Smoking Tobacco: Never Smokeless Tobacco: Never Alcohol Use Standard Drinks/Week Comments Not Currently 0 (1 standard drink = 0.6 oz pur e alcohol) PHQ-2 Answer Date Recorded PHQ-2 Total Score 0 01/17/2020 Comments No Sex and Gender Information Value Date Recorded Sex Assigned at Not on file Legal Sex Female 9:03 AM FISH BAIT PROCESSING SUPERVISOR Gender Identity Female 02/08/2020 6:39 PM CDT Sexual Orientation Not on file documented as of this encounter Plan of Treatment Upcoming Encounters Date Type Department Care Team (Latest Contact Info) Description 07/13/2024 9:00 AM FISH BAIT PROCESSING SUPERVISOR Hospital Encounter [facility] GI Lab [address] [place] [address] Jaya Grier MD [address] [facility] [address] [place] [address] 07/13/2024 9:00 AM FISH BAIT PROCESSING SUPERVISOR - 07/13/2024 9:30 AM FISH BAIT PROCESSING SUPERVISOR Surgery [facility] GI Lab [address] [place] [address] Jaya Grier MD [facility] [facility] [address] [place] [address] ESOPHAGOGASTRODUODENOSCOPY Scheduled Procedures Name Priority Associated Diagnoses Date/Ti me ESOPHAGOGASTRODUODENOSCOPY Anemia, unspecified type Gastritis without bleeding, unspecified chronicity, unspecified gastritis type 07/13/2024 9:00 AM FISH BAIT PROCESSING SUPERVISOR COLONOSCOPY Iron deficiency anemia due to chronic blood loss documented as of this encounter Visit Diagnoses Not on filedocumented in this encounter Additional Health Concerns Infection Onset Date Last Indicated Resolved Time MRSA 01/06/2020 01/06/2020 02/06/2021 5:0 0 AM CDT documented as of this encounter Care Teams Director Information Security Relationship Specialty Start Date End Date Cherelle Corcoran MD PCP - General Family Medicine 08/30/19 Mark Queen MD Consulting Physician Infectious Diseases 01/10/20 documented as of this encounter
--- OUTSIDE RECORDS SUMMARY | 2024-07-04 04:21 | XMS_ITS | Encounter Summary ---
Author Organization [facility] Home Care Servic es Address [address] [place] [address] Phone Care Team Providers Care Retail Coverage Merchandiser Name Role Phone Cherelle Corcoran MD Primary Care Pro vider Mark Gallo MD Unavailable [phone] Encounter Details Date Type Department Care Team (Late st Contact Info) Description 02/09/2020 Orders Only [facility] [address] [place] [phone] Brigid Sheffield RPh Social History Tobacco Use Types Packs/Day Years Used Date Smoking Tobacco: Never Smokeless Tobacco: Never Alcohol Use Standard Drinks/Week Comments Not Currently 0 (1 standard drink = 0.6 oz pur e alcohol) PHQ-2 Answer Date Recorded PHQ-2 Total Score 0 01/17/2020 Comments No Sex and Gender Information Value Date Recorded Sex Assigned at Not on file Legal Sex Female 9:03 AM HAIR CLIPPER POWER Gender Identity Female 02/08/2020 6:39 PM CDT Sexual Orientation Not on file documented as of this encounter Progress Notes * Brigid Sheffield RPh - 02/09/2020 5:12 PM CDT CHIP/Kristyn Finnegan/Dr Gallo/Brigid Sheffield pharmD Continue current vancomycin dose and recheck bmp and vancomycin trough on Saturday 02/10 then resumeprevious labs documented in this encounter Plan of Treatment Upcoming Encounters Date Type Department Care Team (Latest Contact Info) Description 07/13/2024 9:00 AM HAIR CLIPPER POWER Hospital Encounter [facility] GI Lab [address] [place] [address] Jaya Grier MD [address] [facility] [address] [place] [address] 07/13/2024 9:00 AM HAIR CLIPPER POWER - 07/13/2024 9:30 AM HAIR CLIPPER POWER Surgery [facility] GI Lab [address] [place] [address] Jaya Grier MD [address] [place] [address] [address] [place] [phone] ESOPHAGOGASTRODUODENOSCOPY Scheduled Procedures Name Priority Associated Diagnoses Date/Ti me ESOPHAGOGASTRODUODENOSCOPY Anemia, unspecified type Gastritis without bleeding, unspecified chronicity, unspecified gastritis type 07/13/2024 9:00 AM HAIR CLIPPER POWER COLONOSCOPY Iron deficiency anemia due to chronic blood loss documented as of this encounter Visit Diagnoses Not on filedocumented in this encounter Additional Health Concerns Infection Onset Date Last Indicated Resolved Time MRSA 01/06/2020 01/06/2020 02/06/2021 5:00 AM CDT documented as of this encounter Care Teams Retail Coverage Merchandiser Relationship Specialty Start Date End Date Cherelle Corcoran MD PCP - General Family Medicine 08/30/19 Mark Gallo MD Consulting Physician Infectious Diseases 01/10/20 documented as of this encounter
--- OUTSIDE RECORDS SUMMARY | 2024-07-04 04:21 | XMS_ITS | Encounter Summary ---
Author Organization [facility] Medical Group Address [address] [facility] [address] [place] [address] Care Team Providers Care Derivatives Trader Name Role Phone Cherelle Corcoran MD Primary Care Pro vider Mark Ruby MD Unavailable [phone] Encounter Details Date Type Department Care Team (Late st Contact Info) Description 02/14/2020 Orders Only [facility] [address] [phone] Mark Ruby MD [address] [address] Social History Tobacco Use Types Packs/Day Years Used Date Smoking Tobacco: Never Smokeless Tobacco: Never Alcohol Use Standard Drinks/Week Comments Not Currently 0 (1 standard drink = 0.6 oz pur e alcohol) PHQ-2 Answer Date Recorded PHQ-2 Total Score 0 01/17/2020 Comments No Sex and Gender Information Value Date Recorded Sex Assigned at Not on file Legal Sex Female 9:03 AM TEA TREE FARM WORKER Gender Identity Female 02/08/2020 6:39 PM CDT Sexual Orientation Not on file documented as of this encounter Ordered Prescriptions Prescription Sig Dispense Quantity Refills Last Filled Start Date End Date doxycycline (VIBRAMYCIN) 100 mg capsule Take 1 tablet/caps ule (100 mg total) by mouth every 12 (twelve) hours for 10 days 20 tablet/capsule 02/14/2020 02/24/2020 documented in this encounter Progress Notes * Kristyn Finnegan - 02/14/2020 10:23 AM CDT Picc line coming out and no longer functional per [facility] HIT. Per Dr Ruby stop iv abx and begin Doxycycline 100mg one po bid x 10 days. [facility] notified. documented in this encounter Plan of Treatment Upcoming Encounters Date Type Department Care Team (Latest Contact Info) Description 07/13/2024 9:00 AM TEA TREE FARM WORKER Hospital Encounter [facility] [address] [place] [address] Jaya Grier MD [address] [place] [address] [address] [place] [address] 07/13/2024 9:00 AM TEA TREE FARM WORKER - 07/13/2024 9:30 AM TEA TREE FARM WORKER Surgery [facility] [address] [place] [address] Jaya Grier MD [facility] [facility] [address] [place] [phone] ESOPHAGOGASTRODUODENOSCOPY Scheduled Procedures Name Priority Associated Diagnoses Date/Ti ky ESOPHAGOGASTRODUODENOSCOPY Anemia, unspecified type Gastritis without bleeding, unspecified chronicity, unspecified gastritis type 07/13/2024 9:00 AM TEA TREE FARM WORKER COLONOSCOPY Iron deficiency anemia due to chronic blood loss documented as of this encounter Visit Diagnoses Not on filedocumented in this encounter Additional Health Concerns Infection Onset Date Last Indicated Resolved Time MRSA 01/06/2020 01/06/2020 02/06/2021 5:00 AM CDT documented as of this encounter Care Teams Derivatives Trader Relationship Specialty Start Date End Date Cherelle Corcoran MD PCP - General Family Medicine 08/30/19 Mark Ruby MD Consulting Physician Infectious Diseases 01/10/20 documented as of this encounter
--- OUTSIDE RECORDS SUMMARY | 2024-07-04 04:21 | XMS_ITS | Encounter Summary ---
Author Organization [facility] Healthcare Address [address] [place] [address] Care Team Providers Care Plastics Nurse Name Role Phone Cherelle Corcoran MD Primary Care Pro vider Mark Queen MD Unavailable [phone] Encounter Details Date Type Department Care Team (Latest Contact Info) Description 03/27/2020 9:41 AM CDT - 03/27/2020 11:59 PM CDT Hospital Encounter [facility] [address] [place] [address] Anat Pelayo, DPM [address] [place] [phone] Discharge Disposition: Discharge to home or self [...] on file Legal Sex Female 9:03 AM INSURANCE INSPECTOR Gender Identity Female 02/08/2020 6:39 PM [...] needed for pain. Indications: pain 02/22/20 21 Basaglar KwikPen U-100 Insulin 100 unit/mL (3 mL) insulin penIndications:Unc ontrolled type 2 diabetes mellitus with hyperglycemia (HCC) Inject 34 Units under the skin nightly 10 pen 1 02/14/2020 05/31/20 20 docusate sodium (COLACE) 100 mg capsuleIndications :constipation Take 1 capsule (100 mg total) by mouth 2 (two) times a day as needed for constipation 01/10/2020 10/03/19 21 gabapentin (NEURONTIN) 400 mg capsuleIndications :Other diabetic neurological complication associated with type 2 diabetes mellitus (HCC) Take 1 capsule (400 mg total) by mouth 3 (three) times a day 270 capsule 1 12/09/2019 04/02/20 20 lisinopriL (PRINIVIL,ZESTRIL) 10 mg tabletIndications: Essential hypertension Take 1 tablet (10 mg total) by mouth daily 30 tablet 5 12/09/2019 10/03/19 21 meclizine (ANTIVERT) 25 mg tablet TK 1 T PO TID PRF DIZZINESS 03/25/2020 12/11/19 21 pen needle, diabetic 32 gauge x [...] U-100 MISC) 3 times a day 09/12/2017 06/11/20 23 Victoza 2-Vivek 0.6 mg/0.1 mL (18 [...] (Latest Contact Info) Description 07/13/2024 9:00 AM INSURANCE INSPECTOR Hospital Encounter [facility] GI Lab [address] [place] [address] Jaya Grier MD [facility] [facility] [address] [place] [address] 07/13/2024 9:00 AM INSURANCE INSPECTOR - 07/13/2024 9:30 AM INSURANCE INSPECTOR Surgery [facility] GI Lab [address] [place] [address] Jaya Grier MD [address] [place] [address] [address] [place] [address] ESOPHAGOGASTRODUODENOSCOPY Scheduled Procedures Name Priority Associated Diagnoses Date/Ti ct ESOPHAGOGASTRODUODENOSCOPY Anemia, unspecified type Gastritis without bleeding, unspecified chronicity, unspecified gastritis type 07/13/2024 9:00 AM INSURANCE INSPECTOR COLONOSCOPY Iron deficiency anemia due to chronic blood loss documented as of this encounter Visit Diagnoses Not on filedocumented in this encounter Additional Health Concerns Infection Onset Date Last Indicated Resolved Time MRSA 01/06/2020 01/06/2020 02/06/2021 5:00 AM CDT documented as of this encounter Care Teams Plastics Nurse Relationship Specialty Start Date End Date Cherelle Corcoran MD PCP - General Family Medicine 08/30/19 Mark Queen MD Consulting Physician Infectious Diseases 01/10/20 documented as of this encounter
--- OUTSIDE RECORDS SUMMARY | 2024-07-04 04:21 | XMS_ITS | Encounter Summary ---
Author Organization [facility] Address [address] [place] [address] Care Team Providers Care Director Of Volunteer Services Name Role Phone Cherelle Corcoran MD Primary Care Pro vider Mark Queen MD Unavailable [phone] Reason for Referral * Diagnostic Imaging (Routine) - Closed Specialty Diagnoses / Procedures Referred By Maryse lama Referred To Contact Diagnoses Post-menopause Procedures Dexa Axial Skeleton Bone Density 1 or 2 Site Cherelle Corcoran MD Phone: tel: fax: [facility] Referral ID Status Reason Start Date Expiration Date Visits Re quested Visits Authorized [id number] Closed 02/14/2020 03/15/2021 1 1 * Diagnostic Imaging (Routine) - Closed Specialty Diagnoses / Procedures Referred By Maryse lama Referred To Contact Diagnoses Encounter for screening mammogram for malignant neoplasm of breast Procedures SCREENING MAMMOGRAM BILATERAL W GUS Cherelle Corcoran MD Phone: tel: fax: [address] [address] Referral ID Status Reason Start Date Expiration Date Visits Re quested Visits Authorized [id number] Closed 02/14/2020 03/15/2021 1 1 Reason for Visit * Reason Comments Follow-up pt in office to foll ow up on diabetes. Encounter Details Date Type Department Care Team (Latest Contact Info) Description 02/14/2020 1:30 PM CDT Office Visit [facility] Primary Care [address] [address] Cherelle Corcoran MD [facility] [address] Uncontrolled type 2 diabetes mellitus with hyperglycemia (CMS/HCC) (Primary Dx); Post-menopause; Encounter for screening mammogram for malignant neoplasm of breast ; Need for hepatitis C screening test; Amputation of toe of right foot (CMS/HCC); Essential hypertension; Acute osteomyelitis of toe of right foot (CMS/HCC); 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 (CMS/HCC); Schizophrenia (CMS/HCC) Social History Tobacco Use Types Packs/Day Years Used Date Smoking Tobacco: Never Smokeless Tobacco: Never Alcohol Use Standard Drinks/Week Comments Not Currently 0 (1 standard drink = 0.6 oz pur e alcohol) PHQ-2 Answer Date Recorded PHQ-2 Total Score 0 01/17/2020 Comments No Sex and Gender Information Value Date Recorded Sex Assigned at Not on file Legal Sex Female 9:03 AM ELECTRIC MOTOR WINDER Gender Identity Female 02/08/2020 6:39 PM CDT Sexual Orientation Not on file documented as of this encounter Last Filed Vital Signs Vital Sign Reading Time Taken Comments Blood Pressure 128/72 02/14/2020 1:56 PM CDT Pulse 86 02/14/2020 1:56 PM CDT Temperature 37.3 ??C (99.1 ??F) 02/14/2020 1:56 PM CD T Respiratory Rate 16 02/14/2020 1:56 PM CDT Oxygen Saturation 97% 02/14/2020 1:56 PM CDT Inhaled Oxygen Concentration - - Weight 58.5 kg (129 lb) 02/14/2020 1:56 PM CDT Height 157.5 cm (5' 2.01 ) 02/14/2020 1:56 PM CD T Body Mass Index 23.59 02/14/2020 1:56 PM CDT documented in this encounter Ordered Prescriptions Prescription Sig Dispense Quantity Refills Last Filled Start Date End Date Basaglar KwikPen U-100 Insulin 100 unit/mL (3 mL) insulin penIndications:Unco ntrolled type 2 diabetes mellitus with hyperglycemia (HCC) Inject 34 Units under the skin nightly 10 pen 1 02/14/2020 0 documented in this encounter Progress Notes * Cherelle Corcoran MD - 02/14/2020 1:30 PM CDT Images from the original note were not included. Assessment/Plan: Assessment/Plan Diagnoses and all orders for this visit: Uncontrolled type 2 diabetes mellitus with hyperglycemia (CMS/HCC) (Primary) Assessment & Plan: Increase insulin to 34 units Due for repeat a1c in 1 month Referral for eye exam Orders: - Basaglar KwikPen U-100 Insulin 100 unit/mL (3 mL) insulin pen; Inject 34 Units under the skin nightly - Ambulatory referral to Ophthalmology; Future - Hemoglobin A1c; Future - Lipid panel; Future Post-menopause - Dexa Axial Skeleton Bone Density 1 or 2 Site; Future Encounter for screening mammogram for malignant neoplasm of breast - SCREENING MAMMOGRAM BILATERAL W GUS; Future Need for hepatitis C screening test - Hepatitis C antibody; Future Amputation of toe of right foot (CMS/HCC) Assessment & Plan: Healing well Following with surgeon/wound clinic Essential hypertension Assessment & Plan: BP 128/72 today, at goal Continue 10mg lisinopril Acute osteomyelitis of toe of right foot (CMS/HCC) Assessment & Plan: Following with ID On doxycycline as PICC came out 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 Strict return/ED precautions discussed. Subjective: Barbara Chakraborty is a 69 y.o. female here for follow up diabetes mellitus HPI Chief Complaint Patient presents with ??? Follow-up pt in office to follow up on diabetes. Osteomyelitis PICC line came out, ID ok'd her to finish out last 10d on PO antibiotics (doxycycline) Has follow up with vascular on 02/20 Also being seen at wound care every , this is the surgeon who did the amputation Diabetes mellitus Fasting has been 200's, but that was checked after drinking coffee with sugar Also had a honey bun the other day and forgot to take insulin that night Lowest has been 98-105 Schizophrenia Stable Trying to find a psychiatrist who takes public aid insurance Neuropathy Taking 400mg gabapentin BID, helping alot Review of Systems Constitutional: Negative for fever. HENT: Negative for sore throat. Respiratory: Negative for cough and shortness of breath. Gastrointestinal: Negative for diarrhea and vomiting. Musculoskeletal: Negative for myalgias. Skin: Positive for wound. Objective: Vital signs were reviewed. Vitals: 02/14/20 1356 BP: 128/72 BP Location: Left arm Patient Position: Sitting Pulse: 86 Resp: 16 Temp: 37.3 ??C (99.1 ??F) TempSrc: Oral SpO2: 97% Weight: 58.5 kg (129 lb) Height: 157.5 cm (5' 2.01 ) Physical Exam Gen: NAD, comfortable, appears as stated age Eyes: no conjunctival injection, EOMI ENMT: external ears symmetric, nares patent CV: Regular rate Pulm: no increased work of breathing Skin: warm and dry, small ulceration on distal R foot without surrounding erythema or drainage MSK/Neuro: symmetric limb movement, R 4th toe amputation well healing, Psych: alert and oriented to person/place/time Cherelle Corcoran MD documented in this encounter Miscellaneous Notes * Assessment & Plan Note - Cherelle Corcoran MD - 02/14/2020 5:15 PM CDTAssociated Problem(s): History of amputation of toe ([facility] ([facility]) Healing well Following with surgeon/wound clinic * Assessment & Plan Note - Cherelel Corcoran MD - 02/14/2020 5:14 PM CDTAssociated Problem(s): Primary hypertension BP 128/72 today, at goal Continue 10mg lisinopril * Assessment & Plan Note - Cherelle Corcoran MD - 02/14/2020 5:14 PM CDTAssociated Problem(s): Acute osteomyelitis of toe of right foot (HCC) (Resolved 04/17/2020) Following with ID On doxycycline as PICC came out * Assessment & Plan Note - Cherelle Corcoran MD - 02/14/2020 5:14 PM CDTAssociated Problem(s): Schizoaffective disorder, bipolar type (CMS/HCC) (HCC) (Deleted) Daughter working on finding a psychiatrist * Assessment & Plan Note - Cherelle Corcoran MD - 02/14/2020 5:14 PM CDTAssociated Problem(s): Diabetic neuropathy (HCC) (Resolved 05/16/2024) Stable on gabapentin, taking BID * Assessment & Plan Note - Cherelle Corcoran MD - 02/14/2020 5:13 PM CDTAssociated Problem(s): Type 2 diabetes mellitus with diabetic neuropathy, with long-term current use of insulin (HCC) Increase insulin to 34 units Due for repeat a1c in 1 month Referral for eye exam * Addendum Note - Ne London MA - 02/14/2020 1:30 PM CDTAddended by: NE LONDON on: 04/03/2020 08:28 AM Modules accepted: Orders documented in this encounter Plan of Treatment Upcoming Encounters Date Type Department Care Team (Latest Contact Info) Description 07/13/2024 9:00 AM ELECTRIC MOTOR WINDER Hospital Encounter [facility] [address] [place] [address] Jaya Grier MD [address] [facility] [address] [place] [address] 07/13/2024 9:00 AM ELECTRIC MOTOR WINDER - 07/13/2024 9:30 AM ELECTRIC MOTOR WINDER Surgery [facility] [address] [place] [address] Jaya Grier MD [address] [facility] [address] [place] [address] ESOPHAGOGASTRODUODENOSCOPY Scheduled Procedures Name Priority Associated Diagnoses Date/Ti me ESOPHAGOGASTRODUODENOSCOPY Anemia, unspecified type Gastritis without bleeding, unspecified chronicity, unspecified gastritis type 07/13/2024 9:00 AM ELECTRIC MOTOR WINDER COLONOSCOPY Iron deficiency anemia due to chronic blood loss documented as of this encounter Results * SCREENING MAMMOGRAM BILATERAL W GUS (01/08/2021 3:37 PM CDT) Anatomical Region Laterality [...] age 40, based on guidelines of the [employer] (ACR Practice Parameter for the Performance of Screening and Diagnostic Mammography) and [employer]. For women with and elevated risk of breast cancer, please refer to the ACR Practice Parameter for specific screening recommendations. The patient will be entered into a reminder system with a target due date of 1 year for her next screening exam. Narrative 01/10/2021 12:00 PM CDT SCREENING MAMMOGRAM BILATERAL W GUS: 01/08/21 The study was acquired using full [...] cancer. COMPARISONS: 11/08/2015 Diagnostic Mammogram Bilateral W Gus BREAST TISSUE: The breasts have scattered areas of fibroglandular density. FINDINGS: No suspicious masses, suspicious calcifications, or other suspicious findings are seen within either breast. [There has been no suspicious change.] us Cherelle Corcoran MD IMG MAMMO PROCEDU RES Final Result * Dexa Axial Skeleton Bone Density 1 or 2 Site (01/08/2021 3:25 PM CDT) Anatomical Region Laterality Modality Body N/A Mammography 01/08/2021 3:59 PM CDT Narrative 01/08/2021 4:45 PM CDT EXAM DESCRIPTION: ?? DEXA AXIAL SKELETON BONE DENSITY 1 OR MORE SITES REASON FOR STUDY: ?? Post-menopausal female, screening for osteoporosis. Assistant Tennis Coach/Model: ?? [employer] A (S/N [id number]) CLINICAL INFORMATION: ??Current height: ??61 inches ? [...] PM T: ??01/08/2021 4:45 PM Report ID: [id number] Reading Location: ??[id number] Procedure Note Navneet Coy MD - 01/08/2021 EXAM DESCRIPTION: DEXA AXIAL SKELETON BONE DENSITY 1 OR MORE SITES REASON FOR STUDY: Post-menopausal female, screening for osteoporosis. Assistant Tennis Coach/Model: [employer] A (S/N [id number]) CLINICAL INFORMATION: Current height: 61 inches Maximum [...] by Navneet Coy M.D. AB: Report ID: [id number] Reading Location: [id number] Cherelle Corcoran MD IMG DXA PROCEDURE S Final Result documented in this encounter Visit Diagnoses Diagnosis Uncontrolled type 2 diabetes mellitus with hyperglycemia (HCC)- Primary Post-menopause Asymptomatic postmenopausal status (age-related) (natural) Encounter for screening mammogram for malignant neoplasm of breast Need for hepatitis C screening test Special screening examination for other specified viral diseases Amputation of toe of right foot (CMS/HCC) (HCC) Essential hypertension Unspecified essential hypertension Acute osteomyelitis of toe of right foot (HCC) 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 (HCC) Schizophrenia (HCC) Unspecified schizophrenia, unspecified condition Post-menopause Asymptomatic postmenopausal status (age-related) (natural) Encounter for screening mammogram for malignant neoplasm of breast Anemia, unspecified type Gastritis without bleeding, unspecified chronicity, unspecified gastritis type documented in this encounter Discontinued Medications Medication Sig Discontinue Reason Start Date End Da te vancomycin (VANCOCIN) 1,000 mg injection Other 01/17/2020 02/14/2020 vancomycin IVBP Infuse 1,000 mg into a venous catheter daily Alternate therapy 02/01/2020 02/14/2020 Basaglar KwikPen U-100 Insulin 100 unit/mL (3 mL) insulin penIndications:Uncontro lled type 2 diabetes mellitus with hyperglycemia (HCC) Inject 32 Units under the skin nightly 01/20/2020 02/14/2020 HYDROcodone-acetaminoph en (NORCO) 5-325 mg per tabletIndications:Pain Take 1 tablet by mouth every 6 (six) hours as needed for pain Therapy completed 01/10/2020 02/14/2020 heparin (heparin flush) 100 unit/mL syringeIndications:Main tain Patency of Indwelling Vascular Catheter Infuse 5 mL into a venous catheter as needed (iv therapy). Indications: prevent clot from blocking an intravenous catheter Therapy completed 02/14/2020 documented as of this encounter Additional Health Concerns Infection Onset Date Last Indicated Resolved Time MRSA 01/06/2020 01/06/2020 02/06/2021 5:00 AM CDT documented as of this encounter Care Teams Director Of Volunteer Services Relationship Specialty Start Date End Date Cherelle Corcoran MD PCP - General Family Medicine 08/30/19 Mark Queen MD Consulting Physician Infectious Diseases 01/10/20 documented as of this encounter
--- OUTSIDE RECORDS SUMMARY | 2024-07-04 04:21 | XMS_ITS | Encounter Summary ---
Author Organization [facility] Address [address] [place] [address] Care Team Providers Care Horticultural Farmer Name Role Phone Cherelle Corcoran MD Primary Care Pro vider Mark Queen MD Unavailable [phone]- [phone] Encounter Details Date Type Department Care Team (Late st Contact Info) Description 04/02/2020 12:31 PM CDT Hospital Encounter [facility] Cherelle Corcoran MD [facility] [address] Social History Tobacco Use Types Packs/Day Years Used Date Smoking Tobacco: Never Smokeless Tobacco: Never Alcohol Use Standard Drinks/Week Comments Not Currently 0 (1 standard drink = 0.6 oz pur e alcohol) PHQ-2 Answer Date Recorded PHQ-2 Total Score 0 01/17/2020 Comments No Sex and Gender Information Value Date Recorded Sex Assigned at Not on file Legal Sex Female 9:03 AM ICU SPECIALIST Gender Identity Female 02/08/2020 6:39 PM [...] U-100 MIS) 3 times a day 09/12/2017 12/01/19 23 Victoza 2-Vivek 0.6 mg/0.1 mL (18 mg/3 mL) injectionIndicatio ns:Uncontrolled type 2 diabetes mellitus with hyperglycemia (HCC) Inject 1.2 mg under the skin daily 18 mL 1 01/17/2020 05/24/20 20 documented as of this encounter Plan of Treatment Upcoming Encounters Date Type Department Care Team (Latest Contact Info) Description 07/13/2024 9:00 AM ICU SPECIALIST Hospital Encounter [facility] [address] [place] [address] Jaya Grier MD [address] [facility] [address] [place] [address] 07/13/2024 9:00 AM ICU SPECIALIST - 07/13/2024 9:30 AM ICU SPECIALIST Surgery [facility] [address] [place] [address] Jaya Grier MD [address] [facility] [address] [place] [address] ESOPHAGOGASTRODUODENOSCOPY Scheduled Procedures Name Priority Associated Diagnoses Date/Ti ca ESOPHAGOGASTRODUODENOSCOPY Anemia, unspecified type Gastritis without bleeding, unspecified chronicity, unspecified gastritis type 07/13/2024 9:00 AM ICU SPECIALIST COLONOSCOPY Iron deficiency anemia due to chronic blood loss documented as of this encounter Procedures Procedure Name Priority Date/Time Associated Diagnosis Comments US VEIN DUPLEX LOWER EXTREMITY RIGHT LIMITED 04/02/2020 12:36 PM CDT documented in this encounter Results * US Vein Duplex Lower Extremity Right Limited (04/02/2020 12:36 PM CDT) Anatomical Region Laterality Modality Vascular Right Ultrasound 04/04/2020 10:3 1 AM CDT Narrative 04/04/2020 1:06 PM CDT ? Patient Name: DENASIXTO ? MR#: [id number] ? Status: REG CLI ? D.O.B: 1950 Age: ??69 ?Sex: Female ? ADM/SER Dt: 04/02/20 ?Disch Dt: ? LOC: Y.[facility]U ? Ordering Carlos: Cherelle Corcoran MD ? Order #[id number] ? Venous Dop/Duplex Right Leg ?? Ana Luisa Medina MD ? Signed ?? DATE OF SERVICE: ?? 04/02/2020 ? STUDY: ??Right lower extremity venous duplex exam. ? REASON FOR EXAM: ??Right leg pain. ? RIGHT-SIDED FINDINGS: ??Right common femoral, femoral, popliteal, posterior tibial, peroneal and great saphenous veins were identified and noted to be spontaneous, phasic and compressible, consistent with no acute or chronic DVT of the right lower extremity. ? OVERALL IMPRESSION: ??No acute or chronic deep vein thrombosis of the right lower extremity. ? NTS ? Job: [id number] ? Dictated By: Ana Luisa Medina MD ?? Dictated For: Ana Luisa ??MD Adam ? <Electronically signed by Radha Martines ? 04/04/20 1607 ?? Resulting Agency Comment O Procedure Note Ana Luisa Medina MD - 04/04/2020 Patient Name: SIXTO CHAKRABORTY #: [id number] Status: REG CLI D.O.B: 1950 Age: 69Sex: Female ADM/SER Dt: 04/02/20 Disch Dt:LOC: [facility] Ordering Phy: Cherelle Corcoran MD Order #[id number] Venous Dop/Duplex Right Leg Ana Luisa Medina MD Signed DATE OF SERVICE: 04/02/2020 STUDY: Right lower extremity venous duplex exam. REASON FOR EXAM: Right leg pain. RIGHT-SIDED FINDINGS: Right common femoral, femoral, popliteal,posterior tibial, peroneal and great saphenous veins were identified and noted to be spontaneous, phasicand compressible, consistent with no acute or chronic DVT of the right lower extremity. OVERALL IMPRESSION: No acute or chronic deep vein thrombosis of theright lower extremity. NTS Job: [id number] Dictated By: Ana Luisa Medina MD Dictated For: Ana Luisa Medina MD <Electronically signed by Adam Livingston M.D> 04/04/20 1607 us Cherelle Corcoran MD IM US PROCEDURES Final Result documented in this encounter Visit Diagnoses Not on filedocumented in this encounter Additional Health Concerns Infection Onset Date Last Indicated Resolved Time MRSA 01/06/2020 01/06/2020 02/06/2021 5:00 AM CDT documented as of this encounter Care Teams Horticultural Farmer Relationship Specialty Start Date End Date Cherelle Corcoran MD PCP - General Family Medicine 08/30/19 Mark Queen MD Consulting Physician Infectious Diseases 01/10/20 documented as of this encounter
--- OUTSIDE RECORDS SUMMARY | 2024-07-04 04:21 | XMS_ITS | Encounter Summary ---
Author Organization [facility] Address [address] [place] [address] Care Team Providers Care Chlorine Plant Operator Name Role Phone Cherelle Corcoran MD Primary Care Pro vider Mark Queen MD Unavailable [phone] Encounter Details Date Type Department Care Team (Late st Contact Info) Description 02/14/2020 Telephone [facility] Primary Care [address] [facility] [address] [place] [address] Natacha London MA Social History [...] on file Legal Sex Female 9:03 AM TRANSPORTATION MAINTENANCE SUPERVISOR Gender Identity Female 02/08/2020 6:39 PM CDT Sexual Orientation Not on file documented as of this encounter Miscellaneous Notes * Telephone Encounter - Natacha London MA - 02/14/2020 11:44 AM CDT Spoke with daughter she states the pik line has been figured out. Pt is going to be put on oral antibiotics for the last 10 days. Also pt will be in for a office visit this afternoon instead of videovisit. * Telephone Encounter - Natacha London MA - 02/14/2020 9:24 AM CDT Pt daughter called stating pt pik line came partially out yesterday. It was noted by home health, they told daughter if she had trouble administering antibiotics today to call our office to be seen or go to the ER. Informed daughter we cannot place a pik in the office. documented in this encounter Plan of Treatment Upcoming Encounters Date Type Department Care Team (Latest Contact Info) Description 07/13/2024 9:00 AM TRANSPORTATION MAINTENANCE SUPERVISOR Hospital Encounter [facility] [address] [place] [address] Jaya Grier MD [facility] [facility] [address] [place] [address] 07/13/2024 9:00 AM TRANSPORTATION MAINTENANCE SUPERVISOR - 07/13/2024 9:30 AM TRANSPORTATION MAINTENANCE SUPERVISOR Surgery [facility] [address] [place] [address] Jaya Grier MD [facility] [facility] [address] [place] [address] ESOPHAGOGASTRODUODENOSCOPY Scheduled Procedures Name Priority Associated Diagnoses Date/Ti md ESOPHAGOGASTRODUODENOSCOPY Anemia, unspecified type Gastritis without bleeding, unspecified chronicity, unspecified gastritis type 07/13/2024 9:00 AM TRANSPORTATION MAINTENANCE SUPERVISOR COLONOSCOPY Iron deficiency anemia due to chronic blood loss documented as of this encounter Visit Diagnoses Not on filedocumented in this encounter Additional Health Concerns Infection Onset Date Last Indicated Resolved Time MRSA 01/06/2020 01/06/2020 02/06/2021 5:00 AM CDT documented as of this encounter Care Teams Chlorine Plant Operator Relationship Specialty Start Date End Date Cherelle Corcoran MD PCP - General Family Medicine 08/30/19 Mark Queen MD Consulting Physician Infectious Diseases 01/10/20 documented as of this encounter
--- OUTSIDE RECORDS SUMMARY | 2024-07-04 04:21 | XMS_ITS | Encounter Summary ---
Author Organization [facility] Address [address] [place] [address] Care Team Providers Care Biochemistry Technician Name Role Phone Cherelle Corcoran MD Primary Care Pro vider Mark Queen MD Unavailable [phone]- [phone] Reason for Visit * Reason Comments Osteomyelitis 4th toe rt ft iv abx Encounter Details Date Type Department Care Team (Late st Contact Info) Description 02/09/2020 1:45 PM CDT Office Visit [facility] [address] [facility] [address] [phone] Mark Queen MD [address] [place] [address] Acute osteomyelitis of toe of right foot (CMS/HCC) (Primary Dx); MRSA (methicillin resistant Staphylococcus aureus) infection Social History Tobacco Use Types Packs/Day Years Used Date Smoking Tobacco: Never Smokeless Tobacco: Never Alcohol Use Standard Drinks/Week Comments Not Currently 0 (1 standard drink = 0.6 oz pur e alcohol) PHQ-2 Answer Date Recorded PHQ-2 Total Score 0 01/17/2020 Comments No Sex and Gender Information Value Date Recorded Sex Assigned at Not on file Legal Sex Female 9:03 AM CARRIAGE RIDER Gender Identity Female 02/08/2020 6:39 PM CDT Sexual Orientation Not on file documented as of this encounter Last Filed Vital Signs Vital Sign Reading Time Taken Comments Blood Pressure - - Pulse - - Temperature 36 ??C (96.8 ??F) 02/09/2020 1:52 PM CDT Respiratory Rate - - Oxygen Saturation - - Inhaled Oxygen Concentration - - Weight 56.5 kg (124 lb 9.6 oz) 02/09/2020 1:52 P M CDT Height - - Body Mass Index 22.78 01/05/2020 8:49 AM CDT documented in this encounter Patient Instructions * Patient Instructions* Mark Queen MD - 02/09/2020 1:45 PM CDT Continue IV vancomycin for 2 more weeks then DC PICC line. Continue wound care with Dr. Golden. Return to this clinic p.r.n.. documented in this encounter Progress Notes * Mark Queen MD - 02/09/2020 1:45 PM CDT Subjective/Objective Patient ID: Barbara Chakraborty is a 69 y.o. female. Chief Complaint Chief Complaint Patient presents with ??? Osteomyelitis 4th toe rt ft iv abx HPI HPI Patient is 69-year-old female with history of diabetes mellitus type 2, peripheral neuropathy, schizophrenia, recently admitted to [facility] with right 4th toe osteomyelitis now and status post amputation. Tissue cultures positive for MRSA so patient was discharged home on IV vancomycin with plans to complete 6 weeks of therapy. Patient have been on IV antibiotics for the past 4 weeks and her wounds are improving. Patient is following Dr. Golden the wound Care Center. Her inflammatory markers on the other hand remain elevated above 100. The explanation is not totally clear. Patient has been complaining of new onset of diarrhea our the past few days. She has no other complaints. Past Medical History: Diagnosis Date ??? Arthritis ??? Depression ??? Diabetic neuropathy (CMS/HCC) ??? Hypertension ??? Schizophrenia (CMS/HCC) ??? Type 2 diabetes mellitus (CMS/HCC) Social History Socioeconomic History ??? Marital status: Single Spouse name: Not on file ??? Number of children: Not on file ??? Years of education: Not on file ??? Highest education level: Not on file Occupational History ??? Not on file Social Needs ??? Financial resource strain: Not on file ??? Food insecurity Worry: Not on file Inability: Not on file ??? Transportation needs Medical: Not on file Non-medical: Not on file Tobacco Use ??? Smoking status: Never Smoker ??? Smokeless tobacco: Never Used Substance and Sexual Activity ??? Alcohol use: Not Currently ??? Drug use: Never ??? Sexual activity: Defer Lifestyle ??? Physical activity Days per week: Not on file Minutes per session: Not on file ??? Stress: Not on file Relationships ??? Social connections Talks on phone: Not on file Gets together: Not on file Attends scientology service: Not on file Active member of club or organization: Not on file Attends meetings of clubs or organizations: Not on file Relationship status: Not on file ??? Intimate partner violence Fear of current or ex partner: Not on file Emotionally abused: Not on file Physically abused: Not on file Forced sexual activity: Not on file Other Topics Concern ??? Not on file Social History Narrative ??? Not on file Family History Problem Relation Age of Onset ??? Stomach cancer Father Review of Systems Constitutional: Negative for fatigue and fever. HENT: Negative for sore throat. Eyes: Negative for redness. Respiratory: Negative for cough and shortness of breath. Cardiovascular: Negative for chest pain and leg swelling. Gastrointestinal: Negative for abdominal pain and diarrhea. Genitourinary: Negative for dysuria and hematuria. Musculoskeletal: Negative for myalgias. Skin: Positive for wound. Negative for rash. Psychiatric/Behavioral: Negative for confusion. Physical Exam Constitutional: General: She is not in acute distress. Appearance: She is well-developed. She is not diaphoretic. HENT: Head: Normocephalic and atraumatic. Nose: Nose normal. Eyes: Conjunctiva/sclera: Conjunctivae normal. Pupils: Pupils are equal, round, and reactive to light. Neck: Musculoskeletal: Normal range of motion. Cardiovascular: Rate and Rhythm: Normal rate and regular rhythm. Pulmonary: Effort: Pulmonary effort is normal. Breath sounds: Normal breath sounds. Abdominal: General: Bowel sounds are normal. There is no distension. Palpations: Abdomen is soft. Musculoskeletal: General: No deformity. Skin: General: Skin is warm and dry. Comments: Right foot surgical wound over the right 5th toe with minimal wound dehiscence as per recent pictures the wound Care Center dated February 02, 2020. Neurological: Mental Status: She is alert and oriented to person, place, and time. Psychiatric: Behavior: Behavior normal. Thought Content: Thought content normal. Judgment: Judgment normal. Temp 36 ??C (96.8 ??F) Wt 56.5 kg (124 lb 9.6 oz) BMI 22.78 kg/m?? Diagnoses and all orders for this visit: Acute osteomyelitis of toe of right foot ([facility]) (Primary) MRSA (methicillin resistant Staphylococcus aureus) infection Patient is a 69-year-old female with history of diabetes mellitus type 2, peripheral neuropathy, recently admitted into the hospital with right 4th toe osteomyelitis now and status post toe amputation. Tissue cultures positive for MRSA. Patient on IV vancomycin for the past 4 weeks clinical improvement. Elevation in inflammatory markers may have a different explanation than persistent bone infection. I wonder if the new onset of diarrhea may have something to do with persistent elevation in thesed rate and also elevation in the white count. I recommended the use of probiotics but if no improvement patient will need to contact for primary care physician. There is very low chance for C diff colitis with the use of vancomycin. My plan is to continue IV antibiotics for another 2 weeks beforestopping all. Continue local wound care by Dr. Golden. documented in this encounter Plan of Treatment Upcoming Encounters Date Type Department Care Team (Latest Contact Info) Description 07/13/2024 9:00 AM [facility] Hospital Encounter [facility] [address] [place] [address] Jaya Grier MD [address] [facility] [address] [place] [address] 07/13/2024 9:00 AM CARRIAGE RIDER - 07/13/2024 9:30 AM [facility] Surgery [facility] [address] [place] [address] Jaya Grier MD [address] [facility] [address] [address] ESOPHAGOGASTRODUODENOSCOPY Scheduled Procedures Name Priority Associated Diagnoses Date/Ti me ESOPHAGOGASTRODUODENOSCOPY Anemia, unspecified type Gastritis without bleeding, unspecified chronicity, unspecified gastritis type 07/13/2024 9:00 AM CARRIAGE RIDER COLONOSCOPY Iron deficiency anemia due to chronic blood loss documented as of this encounter Visit Diagnoses Diagnosis Acute osteomyelitis of toe of right foot (HCC)- Primary MRSA (methicillin resistant Staphylococcus aureus) infection Methicillin resistant Staphylococcus aureus in conditions classified elsewhere and of unspecified site Anemia, unspecified type Gastritis without bleeding, unspecified chronicity, unspecified gastritis type documented in this encounter Additional Health Concerns Infection Onset Date Last Indicated Resolved Time MRSA 01/06/2020 01/06/2020 02/06/2021 5:00 AM CDT documented as of this encounter Care Teams Biochemistry Technician Relationship Specialty Start Date End Date Cherelle Corcoran MD PCP - General Family Medicine 08/30/19 Mark Queen MD Consulting Physician Infectious Diseases 01/10/20 documented as of this encounter
--- OUTSIDE RECORDS SUMMARY | 2024-07-04 04:21 | XMS_ITS | Encounter Summary ---
Author Organization [facility] Address [address] [place] [address] Phone Care Team Providers Care Tourist Information Officer Name Role Phone Cherelle Corcoran MD Primary Care Pro vider Mark Queen MD Unavailable [phone] Reason for Visit * Auth/Cert Specialty Diagnoses / Procedures Referred By Maryse lama Referred To Contact Referral ID Status Reason Start Date Expiration Date Visits Re quested Visits Authorized [id number] 1 1 Encounter Details Date Type Department Care Team (Late st Contact Info) Description 02/03/2020 Home Care Visit [facility] Home Health - [address] [address] [address] [place] [address] Lottie Champion RN TRAVEL SCREENING CASE COMMUNICATION Social History Tobacco Use [...] on file Legal Sex Female 9:03 AM WEB APPLICATION DEV SPECIALIST Gender Identity Female 02/08/2020 6:39 PM CDT Sexual Orientation Not on file documented as of this encounter Plan of Treatment Upcoming Encounters Date Type Department Care Team (Latest Contact Info) Description 07/13/2024 9:00 AM WEB APPLICATION DEV SPECIALIST Hospital Encounter [facility] [address] [place] [address] Jaya Grier MD [address] [facility] [address] [place] [address] 07/13/2024 9:00 AM WEB APPLICATION DEV SPECIALIST - 07/13/2024 9:30 AM WEB APPLICATION DEV SPECIALIST Surgery [facility] [address] [place] [address] Jaya Grier MD [facility] [address] [place] [address] ESOPHAGOGASTRODUODENOSCOPY Scheduled Procedures Name Priority Associated Diagnoses Date/Ti me ESOPHAGOGASTRODUODENOSCOPY Anemia, unspecified type Gastritis without bleeding, unspecified chronicity, unspecified gastritis type 07/13/2024 9:00 AM WEB APPLICATION DEV SPECIALIST COLONOSCOPY Iron deficiency anemia due to chronic blood loss documented as of this encounter Visit Diagnoses Not on filedocumented in this encounter Additional Health Concerns Infection Onset Date Last Indicated Resolved Time MRSA 01/06/2020 01/06/2020 02/06/2021 5:00 AM CDT documented as of this encounter Care Teams Tourist Information Officer Relationship Specialty Start Date End Date Cherelle Corcoran MD PCP - General Family Medicine 08/30/19 Mark Queen MD Consulting Physician Infectious Diseases 01/10/20 documented as of this encounter
--- OUTSIDE RECORDS SUMMARY | 2024-07-04 04:21 | XMS_ITS | Encounter Summary ---
Author Organization [facility] Address [address] [place] [address] Care Team Providers Care Agricultural Appraiser Name Role Phone Cherelle Corcoran MD Primary Care Pro vider Mark Queen MD Unavailable [phone] Encounter Details Date Type Department Care Team (Late st Contact Info) Description 02/11/2020 4:00 PM CDT Lab [address] [phone] Social History Tobacco Use Types Packs/Day Years Used Date Smoking Tobacco: Never Smokeless Tobacco: Never Alcohol Use Standard Drinks/Week Comments Not Currently 0 (1 standard drink = 0.6 oz pur e alcohol) PHQ-2 Answer Date Recorded PHQ-2 Total Score 0 01/17/2020 Comments No Sex and Gender Information Value Date Recorded Sex Assigned at Not on file Legal Sex Female 9:03 AM DATASTAGE CONSULTANT Gender Identity Female 02/08/2020 6:39 PM CDT Sexual Orientation Not on file documented as of this encounter Plan of Treatment Upcoming Encounters Date Type Department Care Team (Latest Contact Info) Description 07/13/2024 9:00 AM DATASTAGE CONSULTANT Hospital Encounter [facility] GI Lab [address] [place] [address] Jaya Grier MD [address] [address] 07/13/2024 9:00 AM DATASTAGE CONSULTANT - 07/13/2024 9:30 AM DATASTAGE CONSULTANT Surgery [facility] Lab [address] [place] [address] Jaya Grier MD [address] [address] ESOPHAGOGASTRODUODENOSCOPY Scheduled Procedures Name Priority Associated Diagnoses Date/Ti me ESOPHAGOGASTRODUODENOSCOPY Anemia, unspecified type Gastritis without bleeding, unspecified chronicity, unspecified gastritis type 07/13/2024 9:00 AM DATASTAGE CONSULTANT COLONOSCOPY Iron deficiency anemia due to chronic blood loss documented as of this encounter Procedures Procedure Name Priority Date/Time Associated Diagnosis Comments VANCOMYCIN LEVEL TROUGH STAT 02/11/2020 1:00 PM CDT documented in this encounter Results * (ABNORMAL) Vancomycin, trough (02/11/2020 1:00 PM CDT) Vancomycin trough 14.7(L) 15.0 - 20.0 mcg/mL NILSA LOWE (TORRI) Comment: Intepretive Data Therapeutic range: ??15 - 20 mcg/ml Current interpretive data was last revised on 2014 Blood specimen (specimen) 02/11/2020 1:00 PM CDT 02/11/2020 3:56 PM CDT us Mark Queen MD LAB BLOOD ORDERABLES Final Result NILSA LOWE ([facility]RI) 1 [facility] Department [place] [address] documented in this encounter Visit Diagnoses Not on filedocumented in this encounter Additional Health Concerns Infection Onset Date Last Indicated Resolved Time MRSA 01/06/2020 01/06/2020 02/06/2021 5:00 AM CDT documented as of this encounter Care Teams Agricultural Appraiser Relationship Specialty Start Date End Date Cherelle Corcoran MD PCP - General Family Medicine 08/30/19 Mark Queen MD Consulting Physician Infectious Diseases 01/10/20 documented as of this encounter
--- OUTSIDE RECORDS SUMMARY | 2024-07-04 04:21 | XMS_ITS | Encounter Summary ---
Author Organization [facility] Healthcare Address [address] [place] [address] Care Team Providers Care Verse Writer Name Role Phone Cherelle Corcoran MD Primary Care Pro vider Mark Queen MD Unavailable [phone] Encounter Details Date Type Department Care Team (Latest Contact Info) Description 02/09/2020 3:24 PM CDT - 02/09/2020 11:59 PM CDT Hospital Encounter [facility] [address] [place] [address] Anat Pelayo, [address] [address] Discharge Disposition: Discharge to home or self [...] on file Legal Sex Female 9:03 AM GUT SNATCHER Gender Identity Female 02/08/2020 6:39 PM CDT [...] as needed for pain. Indications: pain 02/22/20 Basaglar KwikPen U-100 Insulin 100 unit/mL (3 mL) insulin penIndications:Unc ontrolled type 2 diabetes mellitus with hyperglycemia (HCC) Inject 32 Units under the skin nightly 10 pen 1 01/20/2020 02/14/20 20 docusate sodium (COLACE) 100 mg capsuleIndications :constipation Take 1 capsule (100 mg total) by mouth 2 (two) times a day as needed for constipation 01/10/2020 10/03/19 21 gabapentin (NEURONTIN) 400 mg capsuleIndications :Other diabetic neurological complication associated with type 2 diabetes mellitus (HCC) Take 1 capsule (400 mg total) by mouth 3 (three) times a day 270 capsule 12/09/2019 04/02/20 20 heparin (heparin flush) 100 unit/mL syringeIndications :Maintain Patency of Indwelling Vascular Catheter Infuse 5 mL into a venous catheter as needed (iv therapy). Indications: prevent clot from blocking an intravenous catheter 02/14/20 20 HYDROcodone-acetam inophen (NORCO) 5-325 mg per tabletIndications: Pain Take 1 tablet by mouth every 6 (six) hours as needed for pain 30 tablet 01/10/2020 02/14/20 20 lisinopriL (PRINIVIL,ZESTRIL) 10 mg tabletIndications: Essential hypertension Take 1 tablet (10 mg total) by mouth daily 30 tablet 5 12/09/2019 10/03/19 21 pen needle, diabetic 32 gauge x 3/16 needleIndications: Uncontrolled type 2 diabetes mellitus with hyperglycemia (HCC) Use to inject basaglar nightly 100 each 1 01/17/2020 01/04/20 22 sodium chloride 0.9% injectionIndicatio ns:line care Infuse 10 mL into a venous catheter as needed for line care. Indications: line care 09/13/19 21 syringe with needle, insulin (INSULIN SYRINGE-NEEDLE U-100 MISC) 3 times a day 09/12/2017 12/01/19 23 vancomycin (VANCOCIN) 1,000 mg injection 01/17/2020 02/14/20 20 vancomycin IVBP Infuse 1,000 mg into a venous catheter daily 02/01/2020 02/14/20 20 Victoza 2-Vivek 0.6 mg/0.1 mL (18 mg/3 [...] (Latest Contact Info) Description 07/13/2024 9:00 AM GUT SNATCHER Hospital Encounter [facility] [address] [place] [address] Jaya Grier MD [facility] [facility] [address] [place] [address] 07/13/2024 9:00 AM GUT SNATCHER - 07/13/2024 9:30 AM GUT SNATCHER Surgery [facility] [address] [place] [address] Jaya Grier MD [facility] [facility] [address] [place] [address] ESOPHAGOGASTRODUODENOSCOPY Scheduled Procedures Name Priority Associated Diagnoses Date/Ti nv ESOPHAGOGASTRODUODENOSCOPY Anemia, unspecified type Gastritis without bleeding, unspecified chronicity, unspecified gastritis type 07/13/2024 9:00 AM GUT SNATCHER COLONOSCOPY Iron deficiency anemia due to chronic blood loss documented as of this encounter Visit Diagnoses Not on filedocumented in this encounter Additional Health Concerns Infection Onset Date Last Indicated Resolved Time MRSA 01/06/2020 01/06/2020 02/06/2021 5:00 AM CDT documented as of this encounter Care Teams Verse Writer Relationship Specialty Start Date End Date Cherelle Corcoran MD PCP - General Family Medicine 08/30/19 Mark Queen MD Consulting Physician Infectious Diseases 01/10/20 documented as of this encounter
--- OUTSIDE RECORDS SUMMARY | 2024-07-04 04:21 | XMS_ITS | Encounter Summary ---
Author Organization [facility] Address [address] [facility] [address] [place] [address] Care Team Providers Care Final Application Reviewer Name Role Phone Cherelle Corcoran MD Primary Care Pro vider Mark Queen MD Unavailable [phone] Encounter Details Date Type Department Care Team (Late st Contact Info) Description 03/02/2020 Telephone [facility] Primary Care [address] [facility] [address] [place] [address] Cherelle Corcoran MD [facility] [facility] [address] [place] [address] Social History Tobacco Use Types [...] file Legal Sex Female 9:03 AM CAR WRECKER Gender Identity Female 02/08/2020 6:39 PM CDT Sexual Orientation Not on file documented as of this encounter Miscellaneous Notes * Telephone Encounter - Amie Sorto - 03/05/2020 8:57 AM CDT Pt says she is in isolation and declined apt * Telephone Encounter - Naomie Castellano - 03/02/2020 1:57 PM CDT Pt's experienced diarrhea all last week, and now has a runny nose. Pt's daughter tested positive for COVID last documented in this encounter Plan of Treatment Upcoming Encounters Date Type Department Care Team (Latest Contact Info) Description 07/13/2024 9:00 AM CAR WRECKER Hospital Encounter [facility] GI Lab [address] [place] [address] Jaya Grier MD [address] [place] [address] [address] [place] [address] 07/13/2024 9:00 AM CAR WRECKER - 07/13/2024 9:30 AM CAR WRECKER Surgery [facility] GI Lab [address] [place] [address] Jaya Grier MD [address] [place] [address] [address] [place] [address] ESOPHAGOGASTRODUODENOSCOPY Scheduled Procedures Name Priority Associated Diagnoses Date/Ti nh ESOPHAGOGASTRODUODENOSCOPY Anemia, unspecified type Gastritis without bleeding, unspecified chronicity, unspecified gastritis type 07/13/2024 9:00 AM CAR WRECKER COLONOSCOPY Iron deficiency anemia due to chronic blood loss documented as of this encounter Visit Diagnoses Not on filedocumented in this encounter Additional Health Concerns Infection Onset Date Last Indicated Resolved Time MRSA 01/06/2020 01/06/2020 02/06/2021 5:00 AM CDT documented as of this encounter Care Teams Final Application Reviewer Relationship Specialty Start Date End Date Cherelle Corcoran MD PCP - General Family Medicine 08/30/19 Mark uQeen MD Consulting Physician Infectious Diseases 01/10/20 documented as of this encounter
--- OUTSIDE RECORDS SUMMARY | 2024-07-04 04:21 | XMS_ITS | Encounter Summary ---
Author Organization [facility] Healthcare Address [address] [place] [address] Care Team Providers Care Proof Sorter Name Role Phone Cherelle Corcoran MD Primary Care Pro vider Mark Queen MD Unavailable [phone] Encounter Details Date Type Department Care Team (Late st Contact Info) Description 02/09/2020 9:45 AM CDT Lab [facility] [address] [place] [address] Social History Tobacco Use Types Packs/Day Years Used Date Smoking Tobacco: Never Smokeless Tobacco: Never Alcohol Use Standard Drinks/Week Comments Not Currently 0 (1 standard drink = 0.6 oz pur e alcohol) PHQ-2 Answer Date Recorded PHQ-2 Total Score 0 01/17/2020 Comments No Sex and Gender Information Value Date Recorded Sex Assigned at Not on file Legal Sex Female 9:03 AM SUPERINTENDENT DIVISION Gender Identity Female 02/08/2020 6:39 PM CDT Sexual Orientation Not on file documented as of this encounter Plan of Treatment Upcoming Encounters Date Type Department Care Team (Latest Contact Info) Description 07/13/2024 9:00 AM SUPERINTENDENT DIVISION Hospital Encounter [facility] [address] [place] [address] Jaya Grier MD [address] [address] 07/13/2024 9:00 AM SUPERINTENDENT DIVISION - 07/13/2024 9:30 AM SUPERINTENDENT DIVISION Surgery [facility] [address] [place] [address] Jaya Grier MD [address] [facility] [address] GA[address] [place] [address] ESOPHAGOGASTRODUODENOSCOPY Scheduled Procedures Name Priority Associated Diagnoses Date/Ti me ESOPHAGOGASTRODUODENOSCOPY Anemia, unspecified type Gastritis without bleeding, unspecified chronicity, unspecified gastritis type 07/13/2024 9:00 AM SUPERINTENDENT DIVISION COLONOSCOPY Iron deficiency anemia due to chronic blood loss documented as of this encounter Procedures Procedure Name Priority Date/Time Associated Diagnosis Comments EGFR STAT 02/09/2020 8:30 AM CDT DIFFERENTIAL AUTO STAT 02/09/2020 8:3 0 AM CDT CBC WITH AUTO DIFFERENTIAL STAT 02/09/2020 8:30 AM CDT VANCOMYCIN LEVEL TROUGH STAT 02/09/2020 8:30 AM CDT BASIC METABOLIC PANEL STAT 02/09/2020 8:30 AM CDT documented in this encounter Results * eGFR (02/09/2020 8:30 AM CDT) eGFR 50 mL/min/1.7 3 m2 [facility] ([place]) Comment: Interpretive Data Reference Interval Normal ?>/= 90 mL/min/1.73m2 Mildly decreased* ? 60 - 89 mL/min/1.73m2 Mildly to moderately decreased ?45 - 59 mL/min/1.73m2 Moderately to severely decreased ??30 - 44 mL/min/1.73m2 Severely decreased ?15 - 29 mL/min/1.73m2 Kidney Failure ?< 15 ??mL/min/1.73m2 *Relative to young adult level If -Citizen Of [place] multiply value by 1.16. Estimated glomerular filtration [...] was last reviewed 2016. Blood specimen (specimen) 02/09/2020 8:30 AM CDT 02/09/2020 9:45 AM CDT us Mark Queen MD LAB BLOOD ORDERABLES Final Result [facility] 1 [facility] Department [place] [address] * (ABNORMAL) Differential, auto (02/09/2020 8:30 AM CDT) Neutrophil abs 11.0(H) 1.7 - 6.5 K/cumm [facility] ([place]) Imm gran abs 0.1 0.0 - 0.1 K/cumm [facility] ([place]) Lymphocyte abs 1.9 0.8 - 3.3 K/cumm [facility] ([place]) Monocyte abs 0.6 0.2 - 0.8 K/cumm [facility] ([place]) Eosinophil abs 0.0 0.0 - 0.5 K/cumm [facility] ([place]) Basophil abs 0.0 0.0 - 0.1 K/cumm [facility] ([place]) Neutrophil pct 80.5 % [facility] ([place]) Comment: Interpretive Data Percent cell count reference ranges are not reported, since discordance with absolute values may lead to misinterpretation of CBC data. Current Interpretive Data was last revised on 2017. Imm gran pct 0.4 % [facility] ([place]) Comment: Interpretive Data Percent cell count reference ranges are not reported, since discordance with absolute values may lead to misinterpretation of CBC data. Current Interpretive Data was last revised on 2017. Lymphocyte pct 13.9 % [facility] ([place]) Comment: Interpretive Data Percent cell count reference ranges are not reported, since discordance with absolute values may lead to misinterpretation of CBC data. Current Interpretive Data was last revised on 2017. Monocyte pct 4.7 % [facility] ([place]) Comment: Interpretive Data Percent cell count reference ranges are not reported, since discordance with absolute values may lead to misinterpretation of CBC data. Current Interpretive Data was last revised on 2017. Eosinophil pct 0.2 % [facility] ([place]) Comment: Interpretive Data Percent cell count reference ranges are not reported, since discordance with absolute values may lead to misinterpretation of CBC data. Current Interpretive Data was last revised on 2017. Basophil pct 0.3 % [facility] ([place]) Comment: Interpretive Data Percent cell count reference ranges are not reported, since discordance with absolute values may lead to misinterpretation of CBC data. Current Interpretive Data was last revised on 2017. Blood specimen (specimen) 02/09/2020 8:30 AM CDT 02/09/2020 9:46 AM CDT us Mark Queen MD LAB BLOOD ORDERABLES Final Result [facility] ([place]) 1 [facility] Department [place] [address] * (ABNORMAL) Vancomycin, trough (02/09/2020 8:30 AM CDT) Vancomycin trough <4.0(L) 15.0 - 20.0 mcg/mL [facility] ([place]) Comment: Intepretive Data Therapeutic range: ??15 - 20 mcg/ml Current interpretive data was last revised on 2014 Blood specimen (specimen) 02/09/2020 8:30 AM CDT 02/09/2020 9:46 AM CDT us Mark Queen MD LAB BLOOD ORDERABLES Final Result [facility] ([place]) 1 [facility] [place] [address] * (ABNORMAL) CBC with auto differential (02/09/2020 8:30 AM CDT) WBC 13.7(H) 3.8 - 9.9 K/cumm [facility] ([place]) Hgb 11.2(L) 11.9 - 15.5 g/dL [facility] ([place]) Hct 35.1(L) 35.6 - 45.5 % [facility] ([place]) Plt 317 150 - 400 K/cumm [facility] ([place]) MPV 10.5 9.1 - 12.3 fL [facility] ([place]) RBC 3.91 3.90 - 5.20 M/cumm [facility] ([place]) MCV 89.8 81.3 - 96.4 fL [facility] ([place]) MCH 28.6 27.1 - 33.3 pg [facility] ([place]) MCHC 31.9(L) 32.3 - 35.7 g/dL [facility] ([place]) RDW CV 16.5(H) 11.1 - 14.9 % [facility] ([place]) RDW SD 53.3(H) 35.7 - 48.1 fL [facility] ([place]) NRBC abs 0.00 0.00 - 0.01 K/cumm [facility] ([place]) Blood specimen (specimen) 02/09/2020 8:30 AM CDT 02/09/2020 9:46 AM CDT us Mark Queen MD LAB BLOOD ORDERABLES Final Result [facility] ([place]) 1 [facility] Department [place] [address] * (ABNORMAL) Basic metabolic panel (02/09/2020 8:30 AM CDT) Sodium 141 135 - 145 mmol/L [facility] ([place]) Potassium, pl 3.3 3.3 - 4.9 mmol/L [facility] ([place]) Chloride 103 97 - 110 mmol/L [facility] ([place]) CO2 29 22 - 32 mmol/L [facility] ([place]) Anion gap 11 2 - 15 mmol/L [facility] ([place]) BUN 25 8 - 25 mg/dL [facility] ([place]) Creatinine 1.12(H) 0.60 - 1.10 mg/dL [facility] ([place]) Glucose 235(H) 70 - 199 mg/dL [facility] ([place]) [...] interpretive data was last revised 2017. Calcium 9.0 8.5 - 10.3 mg/dL [facility] ([place]) Blood specimen (specimen) 02/09/2020 8:30 AM CDT 02/09/2020 9:45 AM CDT us Mark Queen MD LAB BLOOD ORDERABLES Final Result [facility] ([place]) 1 [facility] Department [place] [address] documented in this encounter Visit Diagnoses Not on filedocumented in this encounter Additional Health Concerns Infection Onset Date Last Indicated Resolved Time MRSA 01/06/2020 01/06/2020 02/06/2021 5:00 AM CDT documented as of this encounter Care Teams Proof Sorter Relationship Specialty Start Date End Date Cherelle Corcoran MD PCP - General Family Medicine 08/30/19 Mark Queen MD Consulting Physician Infectious Diseases 01/10/20 documented as of this encounter
--- OUTSIDE RECORDS SUMMARY | 2024-07-04 04:21 | XMS_ITS | Encounter Summary ---
Author Organization [facility] Home Care Servic es Address [address] [place] [address] Phone Care Team Providers Care Health Science Writer Name Role Phone Cherelle Corcoran MD Primary Care Pro vider Mark Queen MD Unavailable [phone]- [phone] Reason for Visit * Auth/Cert Specialty Diagnoses / Procedures Referred By Maryse t Referred To Contact Referral ID Status Reason Start Date Expiration Date Visits Re quested Visits Authorized [id number] 1 1 Encounter Details Date Type Department Care Team (Late st Contact Info) Description 02/16/2020 Home Care Visit [facility] Home Health - [address] [address] [address] [place] [address] Brigid Keeann, CUT OUT MACHINE OPERATOR SCREENING CASE COMMUNICATION Social History Tobacco Use [...] file Legal Sex Female 9:03 AM MANAGER CORPORATE MARKETING Gender Identity Female 02/08/2020 6:39 PM CDT Sexual Orientation Not on file documented as of this encounter Plan of Treatment Upcoming Encounters Date Type Department Care Team (Latest Contact Info) Description 07/13/2024 9:00 AM MANAGER CORPORATE MARKETING Hospital Encounter [facility] [address] [place] [address] Jaya Grier MD [address] [facility] [address] [place] [address] 07/13/2024 9:00 AM MANAGER CORPORATE MARKETING - 07/13/2024 9:30 AM MANAGER CORPORATE MARKETING Surgery [facility] [address] [place] [address] Jaya Grier MD [facility]0 [facility] [address] [place] [address] ESOPHAGOGASTRODUODENOSCOPY Scheduled Procedures Name Priority Associated Diagnoses Date/Ti me ESOPHAGOGASTRODUODENOSCOPY Anemia, unspecified type Gastritis without bleeding, unspecified chronicity, unspecified gastritis type 07/13/2024 9:00 AM MANAGER CORPORATE MARKETING COLONOSCOPY Iron deficiency anemia due to chronic blood loss documented as of this encounter Visit Diagnoses Not on filedocumented in this encounter Additional Health Concerns Infection Onset Date Last Indicated Resolved Time MRSA 01/06/2020 01/06/2020 02/06/2021 5:00 AM CDT documented as of this encounter Care Teams Health Science Writer Relationship Specialty Start Date End Date Cherelle Corcoran MD PCP - General Family Medicine 08/30/19 Mark Queen MD Consulting Physician Infectious Diseases 01/10/20 documented as of this encounter
--- OUTSIDE RECORDS SUMMARY | 2024-07-04 04:21 | XMS_ITS | Encounter Summary ---
Author Organization [facility] Healthcare Address [address] [place] [address] Care Team Providers Care National Recruiter Name Role Phone Cherelle Corcoran MD Primary Care Pro vider Mark Queen MD Unavailable [phone]- [phone] Encounter Details Date Type Department Care Team (Late st Contact Info) Description 02/06/2020 11:20 AM CDT Lab [facility] 1 [place] [address] Social History Tobacco Use Types Packs/Day Years Used Date Smoking Tobacco: Never Smokeless Tobacco: Never Alcohol Use Standard Drinks/Week Comments Not Currently 0 (1 standard drink = 0.6 oz pur e alcohol) PHQ-2 Answer Date Recorded PHQ-2 Total Score 0 01/17/2020 Comments No Sex and Gender Information Value Date Recorded Sex Assigned at Not on file Legal Sex Female 9:03 AM PROTECTION MANAGER Gender Identity Female 02/08/2020 6:39 PM CDT Sexual Orientation Not on file documented as of this encounter Plan of Treatment Upcoming Encounters Date Type Department Care Team (Latest Contact Info) Description 07/13/2024 9:00 AM PROTECTION MANAGER Hospital Encounter [facility] GI Lab [address] [place] [address] Jaya Grier MD [address] [address] 07/13/2024 9:00 AM PROTECTION MANAGER - 07/13/2024 9:30 AM PROTECTION MANAGER Surgery [facility] Lab [address] [place] [address] Jaya Grier MD [address] [facility] [address] [place] [address] ESOPHAGOGASTRODUODENOSCOPY Scheduled Procedures Name Priority Associated Diagnoses Date/Ti me ESOPHAGOGASTRODUODENOSCOPY Anemia, unspecified type Gastritis without bleeding, unspecified chronicity, unspecified gastritis type 07/13/2024 9:00 AM PROTECTION MANAGER COLONOSCOPY Iron deficiency anemia due to chronic blood loss documented as of this encounter Procedures Procedure Name Priority Date/Time Associated Diagnosis Comments EGFR STAT 02/06/2020 9:00 AM CDT DIFFERENTIAL AUTO STAT 02/06/2020 9:0 0 AM CDT CBC WITH AUTO DIFFERENTIAL STAT 02/06/2020 9:00 AM CDT ERYTHROCYTE SEDIMENTATION RATE STAT 02/06/2020 9:00 AM CDT VANCOMYCIN LEVEL TROUGH STAT 02/06/2020 9:00 AM CDT COMPREHENSIVE METABOLIC PANEL STAT 02/06/2020 9:00 AM CDT documented in this encounter Results * eGFR (02/06/2020 9:00 AM CDT) eGFR 49 mL/min/1.7 3 m2 [facility] ([place]) Comment: Interpretive Data Reference Interval Normal ?>/= 90 mL/min/1.73m2 Mildly decreased* ? 60 - 89 mL/min/1.73m2 Mildly to moderately decreased ?45 - 59 mL/min/1.73m2 Moderately to severely decreased ??30 - 44 mL/min/1.73m2 Severely decreased ?15 - 29 mL/min/1.73m2 Kidney Failure ?< 15 ??mL/min/1.73m2 *Relative to young adult level If -[place] multiply value by 1.16. Estimated glomerular filtration [...] was last reviewed 2016. Blood specimen (specimen) 02/06/2020 9:00 AM CDT 02/06/2020 11:18 AM CDT us Mark Queen MD LAB BLOOD ORDERABLES Final Result [facility] ([place]) 1 [facility] [place] [address] * Differential, auto (02/06/2020 9:00 AM CDT) Neutrophil abs 6.2 1.7 - 6.5 K/cumm [facility] ([place]) Imm gran abs 0.0 0.0 - 0.1 K/cumm [facility] ([place]) Lymphocyte abs 1.4 0.8 - 3.3 K/cumm [facility] ([place]) Monocyte abs 0.5 0.2 - 0.8 K/cumm [facility] ([place]) Eosinophil abs 0.3 0.0 - 0.5 K/cumm [facility] ([place]) Basophil abs 0.0 0.0 - 0.1 K/cumm [facility] ([place]) Neutrophil pct 73.4 % [facility] ([place]) Comment: Interpretive Data Percent cell count reference ranges are not reported, since discordance with absolute values may lead to misinterpretation of CBC data. Current Interpretive Data was last revised on 2017. Imm gran pct 0.4 % [facility] ([place]) Comment: Interpretive Data Percent cell count reference ranges are not reported, since discordance with absolute values may lead to misinterpretation of CBC data. Current Interpretive Data was last revised on 2017. Lymphocyte pct 16.3 % [facility] ([place]) Comment: Interpretive Data Percent cell count reference ranges are not reported, since discordance with absolute values may lead to misinterpretation of CBC data. Current Interpretive Data was last revised on 2017. Monocyte pct 6.2 % [facility] ([place]) Comment: Interpretive Data Percent cell count reference ranges are not reported, since discordance with absolute values may lead to misinterpretation of CBC data. Current Interpretive Data was last revised on 2017. Eosinophil pct 3.2 % [facility] ([place]) Comment: Interpretive Data Percent cell count reference ranges are not reported, since discordance with absolute values may lead to misinterpretation of CBC data. Current Interpretive Data was last revised on 2017. Basophil pct 0.5 % [facility] ([place]) Comment: Interpretive Data Percent cell count reference ranges are not reported, since discordance with absolute values may lead to misinterpretation of CBC data. Current Interpretive Data was last revised on 2017. Blood specimen (specimen) 02/06/2020 9:00 AM CDT 02/06/2020 11:18 AM CDT us Mark Queen MD LAB BLOOD ORDERABLES Final Result [facility] ([place]) 1 [facility] [place] [address] * Vancomycin, trough (02/06/2020 9:00 AM CDT) Vancomycin trough 16.1 15.0 - 20.0 mcg/mL [facility] ([place]) Comment: Intepretive Data Therapeutic range: ??15 - 20 mcg/ml Current interpretive data was last revised on 2014 Blood specimen (specimen) 02/06/2020 9:00 AM CDT 02/06/2020 11:19 AM CDT us Mark Queen MD LAB BLOOD ORDERABLES Final Result [facility] ([place]) 1 [facility] [place] [address] * (ABNORMAL) Erythrocyte sedimentation rate (02/06/2020 9:00 AM CDT) Pathologist [facility] Erythrocyte sedimentation rate 106(H) 1 - 30 mm/hr [facility] ([place]) Blood specimen (specimen) 02/06/2020 9:00 AM CDT 02/06/2020 11:18 AM CDT us Mark Queen MD LAB BLOOD ORDERABLES Final Result Performing Organization Address City/[facility]/ZIP Co de Phone Number [facility] ([place]) 1 [facility] [place] [address] * (ABNORMAL) CBC with auto differential (02/06/2020 9:00 AM CDT) [facility] WBC 8.4 3.8 - 9.9 K/cumm [facility] ([place]) Hgb 8.6(L) 11.9 - 15.5 g/dL [facility] ([place]) Hct 28.0(L) 35.6 - 45.5 % [facility] ([place]) Plt 307 150 - 400 K/cumm [facility] ([place]) MPV 10.9 9.1 - 12.3 fL [facility] ([place]) RBC 3.05(L) 3.90 - 5.20 M/cumm [facility] ([place]) MCV 91.8 81.3 - 96.4 fL [facility] ([place]) MCH 28.2 27.1 - 33.3 pg [facility] ([place]) MCHC 30.7(L) 32.3 - 35.7 g/dL [facility] ([place]) RDW CV 16.1(H) 11.1 - 14.9 % [facility] ([place]) RDW SD 53.5(H) 35.7 - 48.1 fL [facility] ([place]) NRBC abs 0.00 0.00 - 0.01 K/cumm [facility] ([place]) Blood specimen (specimen) 02/06/2020 9:00 AM CDT 02/06/2020 11:18 AM CDT us Mark Queen MD LAB BLOOD ORDERABLES Final Result [facility] ([place]) 1 [facility] Department [place] [address] * (ABNORMAL) Comprehensive metabolic panel (02/06/2020 9:00 AM CDT) Sodium 143 135 - 145 mmol/L [facility] ([place]) Potassium, pl 4.1 3.3 - 4.9 mmol/L [facility] ([place]) Chloride 106 97 - 110 mmol/L [facility] ([place]) CO2 26 22 - 32 mmol/L [facility] ([place]) Anion gap 10 2 - 15 mmol/L [facility] ([place]) BUN 21 8 - 25 mg/dL [facility] ([place]) Creatinine 1.15(H) 0.60 - 1.10 mg/dL [facility] ([place]) Glucose 209(H) 70 - 199 mg/dL [facility] ([place]) [...] interpretive data was last revised 2017. Calcium 9.3 8.5 - 10.3 mg/dL [facility] ([place]) Bilirubin, total 0.3 0.1 - 1.2 mg/dL [facility] ([place]) Protein, pl 8.1 6.5 - 8.5 g/dL [facility] ([place]) Albumin 3.3(L) 3.5 - 5.0 g/dL [facility] ([place]) Alk phos 280(H) 40 - 130 Units/L [facility] ([place]) ALT 33 7 - 45 Units/L [facility] ([place]) AST 33 10 - 45 Units/L [facility] ([place]) Comment: Hemolysis present. ??Results may be affected. Slightly Hemolyzed Specimen Blood specimen (specimen) 02/06/2020 9:00 AM CDT 02/06/2020 11:18 AM CDT us Mark Queen MD LAB BLOOD ORDERABLES Final Result [facility] ([place]) 1 [facility] [place] [address] documented in this encounter Visit Diagnoses Not on filedocumented in this encounter Additional Health Concerns Infection Onset Date Last Indicated Resolved Time MRSA 01/06/2020 01/06/2020 02/06/2021 5:00 AM CDT documented as of this encounter Care Teams National Recruiter Relationship Specialty Start Date End Date Cherelle Corcoran MD PCP - General Family Medicine 08/30/19 Mark Queen MD Consulting Physician Infectious Diseases 01/10/20 documented as of this encounter
--- OUTSIDE RECORDS SUMMARY | 2024-07-04 04:21 | XMS_ITS | Encounter Summary ---
Author Organization [facility] Home Care Servic es Address [address] [place] [address] Phone Care Team Providers Care Industrial Safety And Health Manager Name Role Phone Cherelle Corcoran MD Primary Care Pro vider Mark Gallo MD Unavailable [phone] Reason for Visit * Auth/Cert Specialty Diagnoses / Procedures Referred By Maryse t Referred To Contact Referral ID Status Reason Start Date Expiration Date Visits Re quested Visits Authorized [id number] 1 1 Encounter Details Date Type Department Care Team (Late st Contact Info) Description 02/09/2020 8:00 AM CDT Home Care Visit [facility] [address] [address] [address] [place] [address] Brigid Keenan RN SN HOME VISIT Social [...] on file Legal Sex Female 9:03 AM HOME HEALTH CNA Gender Identity Female 02/08/2020 6:39 PM CDT Sexual Orientation Not on file documented as of this encounter Last Filed Vital Signs Vital Sign Reading Time Taken Comments Blood Pressure 120/64 02/09/2020 8:30 AM CDT Pulse 85 02/09/2020 8:30 AM CDT Temperature 36.3 ??C (97.4 ??F) 02/09/2020 8:30 AM CD T Respiratory Rate 18 02/09/2020 8:30 AM CDT Oxygen Saturation 96% 02/09/2020 8:30 AM CDT Inhaled Oxygen Concentration - - Weight - - Height - - Body Mass Index - - documented in this encounter Plan of Treatment Upcoming Encounters Date Type Department Care Team (Latest Contact Info) Description 07/13/2024 9:00 AM HOME HEALTH CNA Hospital Encounter [facility] GI Lab [address] [place] [address] Jaya Grier MD [address] [place] [address] [address] [place] [address] 07/13/2024 9:00 AM HOME HEALTH CNA - 07/13/2024 9:30 AM HOME HEALTH CNA Surgery [facility] GI Lab [address] [place] [address] Jaya Grier MD [facility]0 [facility] [address] [place] [address] ESOPHAGOGASTRODUODENOSCOPY Scheduled Procedures Name Priority Associated Diagnoses Date/Ti ar ESOPHAGOGASTRODUODENOSCOPY Anemia, unspecified type Gastritis without bleeding, unspecified chronicity, unspecified gastritis type 07/13/2024 9:00 AM HOME HEALTH CNA COLONOSCOPY Iron deficiency anemia due to chronic [...] Status Goals Interve ntions Homebound Status Disciplines: Prison Patient's homebound status 10/23/2019 Active 1 goal linked to scheduled/documen rbuno intervention 1 goal intervention scheduled/document ed in this visit Monitor patient's vital signs every home health visit Disciplines: Prison Monitor patient's vital signs every home health visit. 10/23/2019 Active 1 goal linked to scheduled/documen bruno intervention 1 goal intervention scheduled/document ed in this visit Infection Prevention Disciplines: Prison Infection Prevention 10/23/2019 Active 1 goal linked to scheduled/documen bruno intervention 1 goal intervention scheduled/document ed in this visit Learning/Teac jasiel Needs - Diabetes Disciplines: Prison Learning and teaching needs associated with diagnosis 10/23/2019 Active 1 goal linked to scheduled/documen bruno intervention 1 goal intervention scheduled/document ed in this visit Collect Specimen/Lab Draw Disciplines: Prison Need to collect specimen sample 01/12/2020 Active - 1 problem intervention scheduled/document ed in this visit Goals Goal Associated Problem Outcome Goal Met? Visit Notes Patient recieves care at the most appropriate care setting Description: Patient receives care at the most appropriate care setting. Homebound Status No Measure vital signs during every home health visit during episode of care Description: Home outer diameter grinder tool to measure vital signs during every home [...] Problem:Infection Prevention Goal:Verbalize signs of infection Completed Daughter and patient verbalize understanding. Instruct sick day Description: Instruct patient/caregiver in Sick Day Guidelines. Problem:Learning/Teach ing Needs - Diabetes Goal:Demonstrate adequate knowledge of Diabetes Completed Instructed to monitor blood sugar as ordered, to remain well hydrated. Instructed signs and symptoms of hypoglycemia. Patient and daughter verbalize understanding. Lab draw Description: First lab draw to be done on 01/13/20. Obtain Vanco trough and BMP before third dose on 01/13/20. Then obtain CMP, CBC, ESR and Vanco Trough every Thursday and Vanco trough and BMP every . Start Thursday/ labs week of 01/16/20 Written order:Brigid Sheffield/ Dr Gallo Problem:Collect Specimen/Lab Draw Completed Labs drawn this visit. Patient tolerated well. documented in this encounter Home Health Visit - Actions and Narratives Actions Reported to [facility] that patient has had vomiting and diarrhea all night. New order to add CBC to blood draw. CBC drawn with other labs this visit. documented in this encounter Care Teams Industrial Safety And Health Manager Relationship Specialty Start Date End Date Cherelle Corcoran MD PCP - General Family Medicine 08/30/19 Mark Gallo MD Consulting Physician Infectious Diseases 01/10/20 documented as of this encounter
--- OUTSIDE RECORDS SUMMARY | 2024-07-04 04:21 | XMS_ITS | Encounter Summary ---
Author Organization [facility] Home Care Servic es Address [address] [place] [address] Phone Care Team Providers Care Collar Closer Lockstitch Name Role Phone Cherelle Corcoran MD Primary Care Pro vider Mark Gallo MD Unavailable [phone]- [phone] Reason for Visit * Auth/Cert Specialty Diagnoses / Procedures Referred By Maryse t Referred To Contact Referral ID Status Reason Start Date Expiration Date Visits Re quested Visits Authorized [id number] 1 1 Encounter Details Date Type Department Care Team (Late st Contact Info) Description 02/06/2020 8:00 AM CDT Home Care Visit [facility] [address] [address] [address] [place] [address] Brigid Keenan RN SN HOME VISIT Social [...] on file Legal Sex Female 9:03 AM GUMMED TAPE PRESS OPERATOR Gender Identity Female 02/08/2020 6:39 PM CDT Sexual Orientation Not on file documented as of this encounter Last Filed Vital Signs Vital Sign Reading Time Taken Comments Blood Pressure 130/74 02/06/2020 8:30 AM CDT Pulse 86 02/06/2020 8:30 AM CDT Temperature 37 ??C (98.6 ??F) 02/06/2020 8:30 AM CDT Respiratory Rate 18 02/06/2020 8:30 AM CDT Oxygen Saturation 98% 02/06/2020 8:30 AM CDT Inhaled Oxygen Concentration - - Weight - - Height - - Body Mass Index - - documented in this encounter Plan of Treatment Upcoming Encounters Date Type Department Care Team (Latest Contact Info) Description 07/13/2024 9:00 AM GUMMED TAPE PRESS OPERATOR Hospital Encounter [facility] GI Lab [address] [place] [address] Jaya Grier MD [facility] [address] GA[address] [place] [address] 07/13/2024 9:00 AM GUMMED TAPE PRESS OPERATOR - 07/13/2024 9:30 AM GUMMED TAPE PRESS OPERATOR Surgery [facility] GI Lab [address] [place] [address] Jaya Grier MD [facility] [address] GA[address] [place] [address] ESOPHAGOGASTRODUODENOSCOPY Scheduled Procedures Name Priority Associated Diagnoses Date/Ti ak ESOPHAGOGASTRODUODENOSCOPY Anemia, unspecified type Gastritis without bleeding, unspecified chronicity, unspecified gastritis type 07/13/2024 9:00 AM GUMMED TAPE PRESS OPERATOR COLONOSCOPY Iron deficiency anemia due to chronic blood loss documented as of this encounter Visit Diagnoses Not on filedocumented in this encounter Additional Health Concerns Infection Onset Date Last Indicated Resolved Time MRSA 01/06/2020 01/06/2020 02/06/2021 5:00 AM CDT documented as of this encounter Home Health Visit - Care Plan Visit Details Visit Type -SN Home Visit Discipline -Snf Problems Problem Description Start Date Status Goals Interve ntions Homebound Status Disciplines: Snf Patient's homebound status 10/23/2019 Active 1 goal linked to scheduled/documen bruno intervention 1 goal intervention scheduled/document ed in this visit Monitor patient's vital signs every home health visit Disciplines: Snf Monitor patient's vital signs every home health visit. 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 10/23/2019 Active 1 goal linked to scheduled/documen bruno intervention 1 goal intervention scheduled/document ed in this visit Collect Specimen/Lab Draw Disciplines: Snf Need to collect specimen sample 01/12/2020 Active - 1 problem intervention scheduled/document ed in this visit IV Therapy-Managem ent, Education, and Maintenance Disciplines: Snf Teaching and learning needs for performing home IV therapy 01/12/2020 Active - 1 problem intervention scheduled/document ed in this visit Wound Care Disciplines: Snf Wound care needed 02/03/2020 Active 1 goal linked to scheduled/documen bruno intervention 1 goal intervention scheduled/document ed in this visit Goals Goal Associated Problem Outcome Goal Met? Visit Notes Patient recieves care at the most appropriate care setting Description: Patient receives care at the most appropriate care setting. Homebound Status No Measure vital signs during every home health visit during episode of care Description: Home billing clinician to measure vital signs during every home health visit during episode of care. Monitor patient's vital signs every home health visit No Verbalize signs of infection Description: Verbalize signs of infection Infection Prevention No Knowledgeable on Woundcare Description: Patient/caregiver will be knowledgeable on woundcare procedure, wound healing and when to seek medical attention Wound Education and Management No Progression towards healing Description: Wound show progression towards healing by DISCHARGE Wound Care No Interventions Intervention Associated Problem/Goal Status Variance [...] signs of infection Completed Patient and daughter verbalizes understanding. Demonstration of Wound Care Description: Patient/caregiver will complete a return demonstration on wound care to SN or PT. Observed return wound care on admission Problem:Wound Education and Management Goal:Knowledgeable on Woundcare Completed Daughter returns correct demo Lab draw Description: First lab draw to be done on 01/13/20. Obtain Vanco trough and BMP before third dose on 01/13/20. Then obtain CMP, CBC, ESR and Vanco Trough every Thursday and Vanco trough and BMP every . Start Thursday/ labs week of 01/16/20 Written order:Brigid Sheffield/ Dr Gallo Problem:Collect Specimen/Lab Draw Completed Labs drawn this visit. Patient tolerated well Midline Description: Skilled Nurse to instruct patient/caregiver on dressing change frequency. Central venous line dressing to be changed 48 hours if there is gauze under the occlusive dressing, dressing is soiled or non-occlusive. Weekly IV site dressing changes to be performed if no issues. Securement device to be used with appropriate lines. Skilled Nurse to instruct patient/caregiver on the purpose of doing measurements of line migration and arm circumference weekly and PRN. Type of line: PICC Problem:IV Therapy-Management, Education, and Maintenance Completed Performed this visit. Patient tolerated well Perform dressing change Description: Perform dressing change: SITE RIGHT TOE AMPUTATION SITE, RIGT LATERAL THIRD TOE, RIGHT MEDIAL 5TH TOE to perform dressing change as of 02/03/20 Frequency JONNY OTHER DAY and PRN for excess drainage or dislodgement of dressing. Wound care as follows: cleanse with NORMAL SALINE AND PAT WITH GAUZE, apply WILL to wound bed, cover with GAUZE WOVEN BETWEEN TOES, MAY SECURE WITH ROLL GAUZE AND COBAN. Written order: per wound clinic Problem:Wound Care Goal:Progression towards healing Completed Changed this visit. Patient tolerated well documented in this encounter Care Teams Collar Closer Lockstitch Relationship Specialty Start Date End Date Cherelle Corcoran MD PCP - General Family Medicine 08/30/19 Mark Gallo MD Consulting Physician Infectious Diseases 01/10/20 documented as of this encounter
--- OUTSIDE RECORDS SUMMARY | 2024-07-04 04:21 | XMS_ITS | Encounter Summary ---
Author Organization [facility] Healthcare Address [address] [place] [address] Care Team Providers Care Hosiery Pairer Name Role Phone Cherelle Corcoran MD Primary Care Pro vider Mark Queen MD Unavailable [phone]- [phone] Encounter Details Date Type Department Care Team (Late st Contact Info) Description 03/21/2020 Telephone [facility] Nutrition Counseling and Diabetic Education [id number] [place] [address] Social History Tobacco [...] on file Legal Sex Female 9:03 AM PARACHUTE OFFICER Gender Identity Female 02/08/2020 6:39 PM CDT Sexual Orientation Not on file documented as of this encounter Miscellaneous Notes * Telephone Encounter - Evelyn Barron RD - 03/21/2020 3:35 PM CDT Spoke with pt's daughter about alternative options to outpatient nutrition counseling apt 03/28 @ 9:45 am d/t COVID-[address]. Offered to do apt over the phone, Zoom, or reschedule for 8 weeks out. Pt's daughter confirmed phone apt at original apt time 03/28 @ 9:45 am. Confirmed mailing address tosend relevant handouts prior to apt time. Pt asked to call phone #[phone] for apt. Evelyn Barron MS,RD,LD documented in this encounter Plan of Treatment Upcoming Encounters Date Type Department Care Team (Latest Contact Info) Description 07/13/2024 9:00 AM PARACHUTE OFFICER Hospital Encounter [facility] GI Lab [address] [place] [address] Jaya Grier MD [address] [place] [address] DR GAINES [address] [place] [address] 07/13/2024 9:00 AM PARACHUTE OFFICER - 07/13/2024 9:30 AM PARACHUTE OFFICER Surgery [facility] GI Lab [address] [place] [address] Jaya Grier MD [address] [place] [address] DR GAIN[address] [place] [address] ESOPHAGOGASTRODUODENOSCOPY Scheduled Procedures Name Priority Associated Diagnoses Date/Ti la ESOPHAGOGASTRODUODENOSCOPY Anemia, unspecified type Gastritis without bleeding, unspecified chronicity, unspecified gastritis type 07/13/2024 9:00 AM PARACHUTE OFFICER COLONOSCOPY Iron deficiency anemia due to chronic blood loss documented as of this encounter Visit Diagnoses Not on filedocumented in this encounter Additional Health Concerns Infection Onset Date Last Indicated Resolved Time MRSA 01/06/2020 01/06/2020 02/06/2021 5:00 AM CDT documented as of this encounter Care Teams Hosiery Pairer Relationship Specialty Start Date End Date Cherelle Corcoran MD PCP - General Family Medicine 08/30/19 Mark Queen MD Consulting Physician Infectious Diseases 01/10/20 documented as of this encounter
--- OUTSIDE RECORDS SUMMARY | 2024-07-04 04:21 | XMS_ITS | Encounter Summary ---
Author Organization [facility] Address [address] [facility] [address] [place] [address] Care Team Providers Care Center Line Cutter Operator Name Role Phone Cherelle Corcoran MD Primary Care Pro vider Mark Queen MD Unavailable [phone]- [phone] Encounter Details Date Type Department Care Team (Late st Contact Info) Description 04/03/2020 Telephone [facility] Primary Care [address] [facility] [address] [place] [address] Natacha London MA Social History [...] on file Legal Sex Female 9:03 AM DIRECTOR REHABILITATION PROGRAM Gender Identity Female 02/08/2020 6:39 PM CDT Sexual Orientation Not on file documented as of this encounter Miscellaneous Notes * Telephone Encounter - Natacha London MA - 04/03/2020 8:28 AM CDT Add on labs, order faxed to william nunes documented in this encounter Plan of Treatment Upcoming Encounters Date Type Department Care Team (Latest Contact Info) Description 07/13/2024 9:00 AM DIRECTOR REHABILITATION PROGRAM Hospital Encounter [facility] GI Lab [address] [place] [address] Jaya Grier MD [address] [facility] [address] [place] [address] 07/13/2024 9:00 AM DIRECTOR REHABILITATION PROGRAM - 07/13/2024 9:30 AM DIRECTOR REHABILITATION PROGRAM Surgery [facility] GI Lab [address] [place] [address] Jaya Grier MD [facility]0 [facility] [address] [place] [address] ESOPHAGOGASTRODUODENOSCOPY Scheduled Orders Name Type Priority Associated Diagnoses Orde r Schedule Hemoglobin A1c Lab Routine Uncontrolled type 2 diabetes mellitus with hyperglycemia (CMS/HCC) Expected: 04/03/2020, Expires: 04/03/2021 Lipid panel Lab Routine Uncontrolled type 2 diabetes mellitus with hyperglycemia (CMS/HCC) Expected: 04/03/2020, Expires: 04/03/2021 Comprehensive metabolic panel Lab Routine Uncontrolled type 2 diabetes mellitus with hyperglycemia (CMS/HCC) Hypertension associated with diabetes (CMS/HCC) Expected: 04/03/2020, Expires: 04/03/2021 Hepatitis C antibody Lab Routine Need for hepatitis C screening test Expected: 04/03/2020, Expires: 04/03/2021 Scheduled Procedures Name Priority Associated Diagnoses Date/Ti oh ESOPHAGOGASTRODUODENOSCOPY Anemia, unspecified type Gastritis without bleeding, unspecified chronicity, unspecified gastritis type 07/13/2024 9:00 AM DIRECTOR REHABILITATION PROGRAM COLONOSCOPY Iron deficiency anemia due to chronic blood loss documented as of this encounter Visit Diagnoses Diagnosis Special screening examination for viral disease- Primary Special screening examination for unspecified viral disease Need for hepatitis C screening test Special screening examination for other specified viral diseases Essential hypertension Unspecified essential hypertension Iron deficiency anemia, unspecified [...] documented as of this encounter Care Teams Center Line Cutter Operator Relationship Specialty Start Date End Date Cherelle Corcoran MD PCP - General Family Medicine 08/30/19 Mark Queen MD Consulting Physician Infectious Diseases 01/10/20 documented as of this encounter
--- OUTSIDE RECORDS SUMMARY | 2024-07-04 04:21 | XMS_ITS | Encounter Summary ---
Author Organization [facility] Home Care Servic es Address [address] [place] [address] Phone Care Team Providers Care Shear Operator Name Role Phone Cherelle Corcoran MD Primary Care Pro vider Mark Queen MD Unavailable [phone] Reason for Visit * Auth/Cert Specialty Diagnoses / Procedures Referred By Maryse t Referred To Contact Referral ID Status Reason Start Date Expiration Date Visits Re quested Visits Authorized [id number] 1 1 Encounter Details Date Type Department Care Team (Late st Contact Info) Description 02/06/2020 Home Care Visit [facility] Home Health - [address] [address] [address] [place] [address] Brigid Keenan, FRUIT WORKER SCREENING CASE COMMUNICATION Social History Tobacco Use [...] on file Legal Sex Female 9:03 AM MANUFACTURING PLANNER Gender Identity Female 02/08/2020 6:39 PM CDT Sexual Orientation Not on file documented as of this encounter Plan of Treatment Upcoming Encounters Date Type Department Care Team (Latest Contact Info) Description 07/13/2024 9:00 AM MANUFACTURING PLANNER Hospital Encounter [facility] GI Lab [address] [place] [address] Jaya Grier MD [address] [facility] [address] [place] [address] 07/13/2024 9:00 AM MANUFACTURING PLANNER - 07/13/2024 9:30 AM MANUFACTURING PLANNER Surgery [facility] GI Lab [address] [place] [address] Jaya Grier MD [facility]0 [facility] [address] [place] [address] ESOPHAGOGASTRODUODENOSCOPY Scheduled Procedures Name Priority Associated Diagnoses Date/Ti me ESOPHAGOGASTRODUODENOSCOPY Anemia, unspecified type Gastritis without bleeding, unspecified chronicity, unspecified gastritis type 07/13/2024 9:00 AM MANUFACTURING PLANNER COLONOSCOPY Iron deficiency anemia due to chronic blood loss documented as of this encounter Visit Diagnoses Not on filedocumented in this encounter Additional Health Concerns Infection Onset Date Last Indicated Resolved Time MRSA 01/06/2020 01/06/2020 02/06/2021 5:00 AM CDT documented as of this encounter Care Teams Shear Operator Relationship Specialty Start Date End Date Cherelle Corcoran MD PCP - General Family Medicine 08/30/19 Mark Queen MD Consulting Physician Infectious Diseases 01/10/20 documented as of this encounter
--- OUTSIDE RECORDS SUMMARY | 2024-07-04 04:21 | XMS_ITS | Encounter Summary ---
Author Organization [facility] Home Care Servic es Address [address] [place] [address] Phone Care Team Providers Care Audiovisual Aids Technician Name Role Phone Cherelle Corcoran MD Primary Care Pro vider Mark Gallo MD Unavailable [phone] Encounter Details Date Type Department Care Team (Late st Contact Info) Description 02/09/2020 Orders Only [facility] [address] [place] [id number] Brigid Sheffield RPh Amputation of toe of right foot (CMS/HCC) (Primary Dx); Acute osteomyelitis of toe of right foot (CMS/HCC) Social [...] file Legal Sex Female 9:03 AM TRACK ANNOUNCER Gender Identity Female 02/08/2020 6:39 PM CDT Sexual Orientation Not on file documented as of this encounter Progress Notes * Brigid Sheffield RPh - 02/09/2020 3:02 PM CDT Deacon Finnegan/Dr Gallo/Brigid Sheffield pharmD OK for a CBC with dif with regular lab draw today * Brigid Sheffield RPh - 02/09/2020 3:02 PM CDT Deacon Finnegan/Dr Gallo/Brigid Sheffield pharmD Continue IV antibiotics through 02/23/20. OK to discontinue IV antibiotics and remove picc line aftercompletion of IV therapy. Ok for an extra prison visit to remove picc line. documented in this encounter Plan of Treatment Upcoming Encounters Date Type Department Care Team (Latest Contact Info) Description 07/13/2024 9:00 AM TRACK ANNOUNCER Hospital Encounter [facility] GI Lab [address] [place] [address] Jaya Grier MD [address] [place] [address] [address] [place] [address] 07/13/2024 9:00 AM TRACK ANNOUNCER - 07/13/2024 9:30 AM TRACK ANNOUNCER Surgery [facility] GI Lab [address] [place] [address] Jaya Grier MD [facility] [address] [place] [address] ESOPHAGOGASTRODUODENOSCOPY Scheduled Procedures Name Priority Associated Diagnoses Date/Ti oh ESOPHAGOGASTRODUODENOSCOPY Anemia, unspecified type Gastritis without bleeding, unspecified chronicity, unspecified gastritis type 07/13/2024 9:00 AM TRACK ANNOUNCER COLONOSCOPY Iron deficiency anemia due to chronic blood loss documented as of this encounter Visit Diagnoses Diagnosis Amputation of toe of right foot (CMS/HCC) (HCC)- Primary Acute osteomyelitis of toe of right foot (HCC) Anemia, unspecified type Gastritis without bleeding, unspecified chronicity, unspecified gastritis type documented in this encounter Additional Health Concerns Infection Onset Date Last Indicated Resolved Time MRSA 01/06/2020 01/06/2020 02/06/2021 5:00 AM CDT documented as of this encounter Care Teams Audiovisual Aids Technician Relationship Specialty Start Date End Date Cherelle Corcoran MD PCP - General Family Medicine 08/30/19 Mark Gallo MD Consulting Physician Infectious Diseases 01/10/20 documented as of this encounter
--- OUTSIDE RECORDS SUMMARY | 2024-07-04 04:21 | XMS_ITS | Encounter Summary ---
Author Organization [facility] Healthcare Address [address] [place] [address] Care Team Providers Care Bridal Sales Consultant Name Role Phone Cherelle Corcoran MD Primary Care Pro vider Mark Queen MD Unavailable [phone]- [phone] Encounter Details Date Type Department Care Team (Late st Contact Info) Description 02/11/2020 3:15 PM CDT [address] [address] Mark Queen MD [address] [place] [address] [place] [address] Discharge Disposition: Discharge to home or self [...] file Legal Sex Female 9:03 AM TOP COATER Gender Identity Female 02/08/2020 6:39 PM CDT Sexual Orientation Not on file documented as of this encounter Discharge Disposition Disposition Code Departure Means Destination Discharge to home or self care documented in this encounter Plan of Treatment Upcoming Encounters Date Type Department Care Team (Latest Contact Info) Description 07/13/2024 9:00 AM TOP COATER Hospital Encounter [facility] GI Lab [address] [place] [address] Jaya Grier MD [address] [facility] [address] [place] [address] 07/13/2024 9:00 AM TOP COATER - 07/13/2024 9:30 AM TOP COATER Surgery [facility] GI Lab [address] [place] [address] Jaya Grier MD [address] [facility] [address] [place] [address] ESOPHAGOGASTRODUODENOSCOPY Scheduled Procedures Name Priority Associated Diagnoses Date/Ti me ESOPHAGOGASTRODUODENOSCOPY Anemia, unspecified type Gastritis without bleeding, unspecified chronicity, unspecified gastritis type 07/13/2024 9:00 AM TOP COATER COLONOSCOPY Iron deficiency anemia due to chronic blood loss documented as of this encounter Visit Diagnoses Not on filedocumented in this encounter Additional Health Concerns Infection Onset Date Last Indicated Resolved Time MRSA 01/06/2020 01/06/2020 02/06/2021 5:00 AM CDT documented as of this encounter Care Teams Bridal Sales Consultant Relationship Specialty Start Date End Date Cherelle Corcoran MD PCP - General Family Medicine 08/30/19 Mark Queen MD Consulting Physician Infectious Diseases 01/10/20 documented as of this encounter
--- OUTSIDE RECORDS SUMMARY | 2024-07-04 04:21 | XMS_ITS | Encounter Summary ---
Author Organization [facility] Home Care Servic es Address [address] [place] [address] Phone Care Team Providers Care Boy'S Adviser Name Role Phone Cherelle Corcoran MD Primary Care Pro vider Mark Gallo MD Unavailable [phone] Encounter Details Date Type Department Care Team (Late st Contact Info) Description 02/14/2020 Orders Only [facility] [address] [place] [phone] Brigid Sheffield RPh Acute osteomyelitis of toe of right foot (CMS/HCC) (Primary Dx) Social History Tobacco Use [...] on file Legal Sex Female 9:03 AM INTEGRATED CIRCUIT IC LAYOUT DESIGNER Gender Identity Female 02/08/2020 6:39 PM CDT Sexual Orientation Not on file documented as of this encounter Progress Notes * Brigid Sheffield RPh - 02/14/2020 12:31 PM CDT [facility]/Kirstyn Finnegan/Dr Gallo/Brigid Sheffield pharmD OK to discontinue IV antibiotics and remove picc line. OK for an extra [facility] visit to remove picc line. documented in this encounter Plan of Treatment Upcoming Encounters Date Type Department Care Team (Latest Contact Info) Description 07/13/2024 9:00 AM INTEGRATED CIRCUIT IC LAYOUT DESIGNER Hospital Encounter [facility] GI Lab [address] [place] [address] Jaya Grier MD [address] [facility] [address] [place] [address] 07/13/2024 9:00 AM INTEGRATED CIRCUIT IC LAYOUT DESIGNER - 07/13/2024 9:30 AM INTEGRATED CIRCUIT IC LAYOUT DESIGNER Surgery [facility] GI Lab [address] [place] [address] Jaya Grier MD [facility] [address] [place] [address] ESOPHAGOGASTRODUODENOSCOPY Scheduled Procedures Name Priority Associated Diagnoses Date/Ti me ESOPHAGOGASTRODUODENOSCOPY Anemia, unspecified type Gastritis without bleeding, unspecified chronicity, unspecified gastritis type 07/13/2024 9:00 AM INTEGRATED CIRCUIT IC LAYOUT DESIGNER COLONOSCOPY Iron deficiency anemia due to chronic blood loss documented as of this encounter Visit Diagnoses Diagnosis Acute osteomyelitis of toe of right foot (HCC)- Primary Anemia, unspecified type Gastritis without bleeding, unspecified chronicity, unspecified gastritis type documented in this encounter Additional Health Concerns Infection Onset Date Last Indicated Resolved Time MRSA 01/06/2020 01/06/2020 02/06/2021 5:00 AM CDT documented as of this encounter Care Teams Boy'S Adviser Relationship Specialty Start Date End Date Cherelle Corcoran MD PCP - General Family Medicine 08/30/19 Mark Gallo MD Consulting Physician Infectious Diseases 01/10/20 documented as of this encounter
--- OUTSIDE RECORDS SUMMARY | 2024-07-04 04:21 | XMS_ITS | Encounter Summary ---
Author Organization [facility] Address [address] [place] [address] Phone Care Team Providers Care Donkey Engine Firer/Fireman Name Role Phone Cherelle Corcoran MD Primary Care Pro vider Mark Queen MD Unavailable [phone]- [phone] Reason for Visit * Auth/Cert Specialty Diagnoses / Procedures Referred By Maryse t Referred To Contact Referral ID Status Reason Start Date Expiration Date Visits Re quested Visits Authorized [id number] 1 1 Encounter Details Date Type Department Care Team (Late st Contact Info) Description 02/11/2020 2:00 PM CDT Home Care Visit [facility] [address] [address] [address] [place], [place] [id number] Azul Last, ALIREZA SN HOME VISIT Social History Tobacco Use [...] on file Legal Sex Female 9:03 AM PER DIEM NURSE Gender Identity Female 02/08/2020 6:39 PM CDT Sexual Orientation Not on file documented as of this encounter Last Filed Vital Signs Vital Sign Reading Time Taken Comments Blood Pressure 116/70 02/11/2020 1:00 PM CDT Pulse 80 02/11/2020 1:00 PM CDT Temperature 36.4 ??C (97.6 ??F) 02/11/2020 1:00 PM CD T Respiratory Rate 18 02/11/2020 1:00 PM CDT Oxygen Saturation 93% 02/11/2020 1:00 PM CDT Inhaled Oxygen Concentration - - Weight - - Height - - Body Mass Index - - documented in this encounter Plan of Treatment Upcoming Encounters Date Type Department Care Team (Latest Contact Info) Description 07/13/2024 9:00 AM PER DIEM NURSE Hospital Encounter [facility] [address] [place] [address] Jaya Grier MD [facility] [address] [place] [id number] 07/13/2024 9:00 AM PER DIEM NURSE - 07/13/2024 9:30 AM PER DIEM NURSE Surgery [facility] [address] [place] [address] Jaya Grier MD [facility] [address] [place] [id number] ESOPHAGOGASTRODUODENOSCOPY Scheduled Procedures Name Priority Associated Diagnoses Date/Ti wv ESOPHAGOGASTRODUODENOSCOPY Anemia, unspecified type Gastritis without bleeding, unspecified chronicity, unspecified gastritis type 07/13/2024 9:00 AM PER DIEM NURSE COLONOSCOPY Iron deficiency anemia due to chronic blood loss documented as of this encounter Visit Diagnoses Not on filedocumented in this encounter Additional Health Concerns Infection Onset Date Last Indicated Resolved Time MRSA 01/06/2020 01/06/2020 02/06/2021 5:00 AM CDT documented as of this encounter Home Health Visit - Care Plan Visit Details Visit Type -SN Home Visit Discipline -Chcf Problems Problem Description Start Date Status Goals Interve ntions Homebound Status Disciplines: Chcf Patient's homebound status 10/23/2019 Active 1 goal linked to scheduled/documen bruno intervention 1 goal intervention scheduled/document ed in this visit Monitor patient's vital signs every home health visit Disciplines: Chcf Monitor patient's vital signs every home health visit. 10/23/2019 Active 1 goal linked to scheduled/documen bruno intervention 1 goal intervention scheduled/document ed in this visit Collect Specimen/Lab Draw Disciplines: Chcf Need to collect specimen sample 01/12/2020 Active - 1 problem intervention scheduled/document ed in this visit Goals Goal Associated Problem Outcome Goal Met? Visit Notes Patient recieves care at the most appropriate care setting Description: Patient receives care at the most appropriate care setting. Homebound Status No Measure vital signs during every home health visit during episode of care Description: Home eap clinician to measure vital signs during every home health visit during episode of care. Monitor patient's vital signs every home health visit No Interventions Intervention Associated Problem/Goal Status Variance Visit Notes Homebound Status Description: Patient is homebound due to unsteady gait, diabetis, neuropathy, risk for falls, open wound Problem:Homebound Status Goal:Patient recieves care at the most appropriate care setting Completed Patient is homebound due to unsteady gait, Diabetes, neuropathy , risk for falls Monitor Vital Signs Description: Monitor blood pressure, pulse, oxygen saturation, respirations Problem:Monitor patient's vital signs every home health visit Goal:Measure vital signs during every home health visit during episode of care Completed Lab draw Description: First lab draw to be done on 01/13/20. Obtain Vanco trough and BMP before third dose on 01/13/20. Then obtain CMP, CBC, ESR and Vanco Trough every Thursday and Vanco trough and BMP every . Start Thursday/ labs week of 01/16/20 Written order:Brigid Sheffield/ Dr Queen Problem:Collect Specimen/Lab Draw Completed Sample obtained from PICC line using aseptic technique for a repeat Vancomycin trough level as ordered. Well tolerated by patient. Next lab draw due : 02/13/2020. documented in this encounter Care Teams Donkey Engine Firer/Fireman Relationship Specialty Start Date End Date Cherelle Corcoran MD PCP - General Family Medicine 08/30/19 Mark Queen MD Consulting Physician Infectious Diseases 01/10/20 documented as of this encounter
--- OUTSIDE RECORDS SUMMARY | 2024-07-04 04:21 | XMS_ITS | Encounter Summary ---
Author Organization [facility] Address [address] [place] [address] Phone Care Team Providers Care Professor Of Forestry Name Role Phone Cherelle Corcoran MD Primary Care Pro vider Mark Gallo MD Unavailable [phone]- [phone] Reason for Visit * Auth/Cert Specialty Diagnoses / Procedures Referred By Maryse t Referred To Contact Referral ID Status Reason Start Date Expiration Date Visits Re quested Visits Authorized [id number] 1 1 Encounter Details Date Type Department Care Team (Late st Contact Info) Description 02/13/2020 5:00 AM CDT Home Care Visit [facility] [address] [address] [address] [place] [address] Brigid Keenan RN SN HOME VISIT Social [...] on file Legal Sex Female 9:03 AM OUTPATIENT SERVICES DIRECTOR Gender Identity Female 02/08/2020 6:39 PM CDT Sexual Orientation Not on file documented as of this encounter Last Filed Vital Signs Vital Sign Reading Time Taken Comments Blood Pressure 130/70 02/13/2020 8:45 AM CDT Pulse 90 02/13/2020 8:45 AM CDT Temperature 37 ??C (98.6 ??F) 02/13/2020 8:45 AM CDT Respiratory Rate 20 02/13/2020 8:45 AM CDT Oxygen Saturation 98% 02/13/2020 8:45 AM CDT Inhaled Oxygen Concentration - - Weight - - Height - - Body Mass Index - - documented in this encounter Plan of Treatment Upcoming Encounters Date Type Department Care Team (Latest Contact Info) Description 07/13/2024 9:00 AM OUTPATIENT SERVICES DIRECTOR Hospital Encounter [facility] [address] [place] [address] Jaya Grier MD [address] [place] [address] DR [address] [place] [address] 07/13/2024 9:00 AM OUTPATIENT SERVICES DIRECTOR - 07/13/2024 9:30 AM OUTPATIENT SERVICES DIRECTOR Surgery [facility] [address] [place] [address] Jaya Grier MD [facility] [address] [place] [phone] ESOPHAGOGASTRODUODENOSCOPY Scheduled Procedures Name Priority Associated Diagnoses Date/Ti ne ESOPHAGOGASTRODUODENOSCOPY Anemia, unspecified type Gastritis without bleeding, unspecified chronicity, unspecified gastritis type 07/13/2024 9:00 AM OUTPATIENT SERVICES DIRECTOR COLONOSCOPY Iron deficiency anemia due to chronic blood loss documented as of this encounter Visit Diagnoses Not on filedocumented in this encounter Additional Health Concerns Infection Onset Date Last Indicated Resolved Time MRSA 01/06/2020 01/06/2020 02/06/2021 5:00 AM CDT documented as of this encounter Home Health Visit - Care Plan Visit Details Visit Type -SN Home Visit Discipline -Fpc Problems Problem Description Start Date Status Goals Interve ntions Homebound Status Disciplines: Fpc Patient's homebound status 10/23/2019 Active 1 goal linked to scheduled/documen bruno intervention 1 goal intervention scheduled/document ed in this visit Monitor patient's vital signs every home health visit Disciplines: Fpc Monitor patient's vital signs every home health visit. 10/23/2019 Active 1 goal linked to scheduled/documen bruno intervention 1 goal intervention scheduled/document ed in this visit Infection Prevention Disciplines: Fpc Infection Prevention 10/23/2019 Active 1 goal linked to scheduled/documen bruno intervention 1 goal intervention scheduled/document ed in this visit Collect Specimen/Lab Draw Disciplines: Fpc Need to collect specimen sample 01/12/2020 Active - 1 problem intervention scheduled/document ed in this visit IV Therapy-Manag ement, Education, and Maintenance Disciplines: Fpc Teaching and learning needs for performing home IV therapy 01/12/2020 Active - 1 problem intervention scheduled/document ed in this visit Wound Care Disciplines: Fpc Wound care needed 02/03/2020 Active 1 goal [...] visit during episode of care Description: Home ambulatory nurse to measure vital signs during every home health visit during episode of care. Monitor patient's vital signs every home health visit No Verbalize signs of infection Description: Verbalize signs of infection Infection Prevention No Progression towards healing Description: Wound show [...] of infection Completed Patient and daughter verbalizes understanding Lab draw Description: First lab draw to [...] clinic Problem:Wound Care Goal:Progression towards healing Completed Performed this viist. Patient tolerated well documented in this encounter Care Teams Professor Of Forestry Relationship Specialty Start Date End Date Cherelle Corcoran MD PCP - General Family Medicine 08/30/19 Mark Gallo MD Consulting Physician Infectious Diseases 01/10/20 documented as of this encounter
--- OUTSIDE RECORDS SUMMARY | 2024-07-04 04:21 | XMS_ITS | Encounter Summary ---
Author Organization [facility] Address [address] [place] [address] Phone Care Team Providers Care Tug Boat Engineer Name Role Phone Cherelle Corcoran MD Primary Care Pro vider Mark Queen MD Unavailable [phone]- [phone] Reason for Visit * Auth/Cert Specialty Diagnoses / Procedures Referred By Maryse t Referred To Contact Referral ID Status Reason Start Date Expiration Date Visits Re quested Visits Authorized [id number] 1 1 Encounter Details Date Type Department Care Team (Late st Contact Info) Description 02/13/2020 Home Care Visit [facility] Home Health - [address] [address] [address] [place] [address] Brigid Keenan, PLATFORM OPERATIONS DIRECTOR SCREENING CASE COMMUNICATION Social History Tobacco Use [...] on file Legal Sex Female 9:03 AM INLETTER Gender Identity Female 02/08/2020 6:39 PM CDT Sexual Orientation Not on file documented as of this encounter Plan of Treatment Upcoming Encounters Date Type Department Care Team (Latest Contact Info) Description 07/13/2024 9:00 AM INLETTER Hospital Encounter [facility] GI Lab [address] [place] [address] Jaya Grier MD [address] [facility] [address] [place] [address] 07/13/2024 9:00 AM INLETTER - 07/13/2024 9:30 AM INLETTER Surgery [facility] [address] [place] [address] Jaya Grier MD [facility] [address] [place] [address] ESOPHAGOGASTRODUODENOSCOPY Scheduled Procedures Name Priority Associated Diagnoses Date/Ti me ESOPHAGOGASTRODUODENOSCOPY Anemia, unspecified type Gastritis without bleeding, unspecified chronicity, unspecified gastritis type 07/13/2024 9:00 AM INLETTER COLONOSCOPY Iron deficiency anemia due to chronic blood loss documented as of this encounter Visit Diagnoses Not on filedocumented in this encounter Additional Health Concerns Infection Onset Date Last Indicated Resolved Time MRSA 01/06/2020 01/06/2020 02/06/2021 5:0 0 AM CDT documented as of this encounter Care Teams Tug Boat Engineer Relationship Specialty Start Date End Date Cherelle Corcoran MD PCP - General Family Medicine 08/30/19 Mark Queen MD Consulting Physician Infectious Diseases 01/10/20 documented as of this encounter
--- OUTSIDE RECORDS SUMMARY | 2024-07-04 04:21 | XMS_ITS | Encounter Summary ---
Author Organization [facility] Address [address] [place] [address] Care Team Providers Care Vp Information Technology Name Role Phone Cherelle Corcoran MD Primary Care Pro vider Mark Queen MD Unavailable [phone] Reason for Visit * Reason Comments Follow-up Pt in the office to follow up. Pt states she is having numbness in legs, had taken gabapentin but was having side effects (drowsiness, coordination off). Not taken in a few days and feeling better. GERD pt c/o acid relux af ter eating. Pt taking alkaseltzer or pepcid. 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 ([facility]); Hypertension associated with diabetes ([facility]); Gastroesophageal reflux disease, unspecified whether esophagitis present [...] on file 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 Gender Identity Female 02/08/2020 6:39 PM CDT Sexual Orientation Not on file documented as of this encounter Last Filed Vital Signs Vital Sign Reading Time Taken Comments Blood Pressure 127/80 04/02/2020 11:16 AM CDT Pulse 88 04/02/2020 11:16 AM CDT Temperature 36.9 ??C (98.4 ??F) 04/02/2020 11:16 AM C DT Respiratory Rate 16 04/02/2020 11:16 AM CDT Oxygen Saturation 97% 04/02/2020 11:16 AM CDT Inhaled Oxygen Concentration - - Weight 53.5 kg (118 lb) 04/02/2020 11:16 AM CDT Height 157.5 cm (5' 2 ) 04/02/2020 11:16 AM CDT Body Mass Index 21.58 04/02/2020 11:16 AM CDT documented in this encounter Ordered Prescriptions Prescription Sig Dispense Quantity Refills Last Filled Start Date End Date omeprazole (PriLOSEC) 20 mg capsule Take 1 capsule daily for 8 weeks. Then take 1 capsule every other day for 2 weeks then stop. 63 capsule 04/02/2020 0 documented in this encounter Progress Notes * Cherelle Corcoran MD - 04/02/2020 9:45 AM CDT Images from the original note were not included. Assessment/Plan: Assessment/Plan Diagnoses and all orders for this visit: Uncontrolled type 2 diabetes mellitus with hyperglycemia ([facility]) (Primary) Assessment & Plan: Stressed importance of increasing insulin to get blood sugar at goal (<140 fasting) A1c pending Need for vaccination - Flu Vaccine Quad High Dose PF 65Y+ IM - Fluzone High Dose Quad Iron deficiency anemia, unspecified iron deficiency anemia type - CBC with auto differential; Future - Iron profile w/ IBC; Future Pain in right leg Comments: STAT US negative for DVT Orders: - US Vein Duplex Lower Extremity Right Limited; Future Ulcer of toe of right foot, with fat layer exposed ([facility]) Assessment & Plan: Now draining Advised to follow up with wound clinic/ID RA, patient has appointment tomorrow 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 Then take 1 capsule every other day for 2 weeks then stop. F/u 2 weeks or sooner as needed. Strict return/ED precautions discussed. Subjective: Barbara Chakraborty is a 69 y.o. female here for follow up diabetes mellitus HPI Chief Complaint Patient presents with ??? Follow-up Pt in the office to follow up. Pt states she is having numbness in legs, had taken gabapentin but was having side effects (drowsiness, coordination off). Not taken in a few days and feeling better. ??? GERD pt c/o acid relux after eating. Pt taking alkaseltzer or pepcid. Diabetes mellitus Medications: 32 units of insulin, never increased to 34 Fasting blood sugar: 160-180's 2h post prandial blood sugar: doesn't usually check no hypoglycemia episodes Notes RLE pain for last week Also had an area of R great toe break open, wound clinic looked at last week and thought it was because she has been walking without boot per daughter, has follow up tomorrow Review of Systems Constitutional: Negative for fever. Respiratory: Positive for cough. Negative for shortness of breath. Gastrointestinal: Negative for diarrhea and vomiting. Musculoskeletal: Positive for myalgias. Skin: Positive for wound. Neurological: Positive for numbness. Objective: Vital signs were reviewed. Vitals: 04/02/20 1116 BP: 127/80 BP Location: Left arm Patient Position: Sitting Pulse: 88 Resp: 16 Temp: 36.9 ??C (98.4 ??F) TempSrc: Tympanic SpO2: 97% Weight: 53.5 kg (118 lb) Height: 157.5 cm (5' 2 ) Physical Exam Feet: Right Foot: Monofilament exam: abnormal. Protective Sensation: 4 sites tested. 0 sites sensed. Left Foot: Monofilament exam: abnormal. Protective Sensation: 5 sites tested. 3 sites sensed. 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, normal dorsal pulse in R foot Psych: alert and oriented to person/place Cherelle Corcoran MD documented in this encounter Miscellaneous Notes * Assessment & Plan Note - Cherelle Corcoran MD - 04/02/2020 1:25 PM CDTAssociated Problem(s): Gastroesophageal reflux disease without esophagitis Start PPI * Assessment & Plan Note - Cherelle Corcoran MD - 04/02/2020 1:23 PM CDTAssociated Problem(s): Primary hypertension BP at goal Continue 10mg lisinopril * Assessment & Plan Note - Cherelle Corcoran MD - 04/02/2020 1:22 PM CDTAssociated Problem(s): Diabetic neuropathy (HCC) (Resolved 05/16/2024) Patient d/c gabapentin 2/2 side effects and minimal improvement * Assessment & Plan Note - Cherelle Corcoran MD - 04/02/2020 1:22 PM CDTAssociated Problem(s): Type 2 diabetes mellitus with diabetic neuropathy, with long-term current use of insulin (HCC) Stressed importance of increasing insulin to get blood sugar at goal (<140 fasting) A1c pending * Assessment & Plan Note - Cherelle Corcoran MD - 04/02/2020 12:51 PM CDTAssociated Problem(s): Ulcer of toe of right foot, with fat layer exposed (HCC) (Resolved 08/28/2020) Now draining Advised to follow up with wound clinic/ID RA, patient has appointment tomorrow documented in this encounter Plan of Treatment Upcoming Encounters Date Type Department Care Team (Latest Contact Info) Description 07/13/2024 9:00 AM 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 [address] [place] [address] ESOPHAGOGASTRODUODENOSCOPY Scheduled Procedures Name Priority Associated Diagnoses Date/Ti il ESOPHAGOGASTRODUODENOSCOPY Anemia, unspecified type Gastritis without bleeding, unspecified chronicity, unspecified gastritis type 07/13/2024 9:00 AM HEAT TREAT WORKER COLONOSCOPY Iron deficiency anemia due to chronic blood loss documented as of this encounter Procedures Procedure Name Priority Date/Time Associated Diagnosis Comments IRON PROFILE W/ IBC Routine 04/02/2020 1 :12 PM CDT Iron deficiency anemia, unspecified iron deficiency anemia type CBC WITH AUTO DIFFERENTIAL Routine 04/02/2020 1:12 PM CDT Iron deficiency anemia, unspecified iron deficiency anemia type HEMOGLOBIN A1C Routine 04/02/2020 1:12 PM CDT Iron deficiency anemia, unspecified iron deficiency anemia type LIPID PANEL Routine 04/02/2020 1:12 PM CDT Iron deficiency anemia, unspecified iron deficiency anemia type COMPREHENSIVE METABOLIC PANEL Routine 04/02/2020 1:12 PM CDT Iron deficiency anemia, unspecified iron deficiency anemia type documented in this encounter Results * (ABNORMAL) Hemoglobin A1c (04/02/2020 1:12 PM CDT) Hemoglobin A1c % 9.3(H) 4.0 - 5.6 % [facility] Comment: ADA 2016 GUIDELINES: ??Initial Diagnostic Criteria ? HbA1c Result: ?Interpretation: ?<5.7% ? Normal ?5.7-6.4% ?At risk for diabetes mellitus ?>=6.5% ?Consistent with diabetes mellitus ??Diabetes monitoring ? Target value (ADA Recommended) ?? <7% 04/02/2020 1:12 PM CDT 04/02/2020 1:21 PM CDT Narrative Resulting Agency Comment CLI us Cherelle Corcoran MD LAB BLOOD [place] [address], [facility] [phone] * (ABNORMAL) Lipid panel (04/02/2020 1:12 PM CDT) Triglycerides 123 0 - 149 mg/dL [facility] Comment: National Lipid Association/NCEP Guidelines: ?? Normal ?< 150 mg/dL ?? Borderline high ?? 150-199 mg/dL ?? High ?200-499 mg/dL ?? Very High ? >=500 mg/dL Cholesterol 211(H) 0 - 199 mg/dL [facility] Comment: National Lipid Association/NCEP Guidelines: Desirable ? < 200 mg/dL Borderline high: ??200-239 mg/dL High Risk: ?>=240 mg/dL HDL Cholesterol 51 mg/dL [facility] Comment: Reference Ranges: ? Males: >=40 mg/dL ? Females: >=50 mg/dL LDL Cholesterol, Calc 135(H) 0 - 129 mg/dL [facility] Comment: National Lipid Association/NCEP Guidelines: ??Optimal ? < 100 mg/dL ??Near Optimal ?100-129 mg/dL ??Borderline high 130-159 mg/dL ??High ?>=160 mg/dL Cholesterol/HDL Ratio 4.1 [facility] Comment: Optimal ??< 3.5:1 High ? > 5:1 04/02/2020 1:12 PM CDT 04/02/2020 1:21 PM CDT Narrative Resulting Agency Comment CLI us Cherelle Corcoran MD LAB BLOOD ORDERAB LES Final Result [place] [address] [place] [address], [facility] [phone] * (ABNORMAL) Comprehensive metabolic panel (04/02/2020 1:12 PM CDT) Sodium 142 135 - 145 mmol/L [facility] Potassium 4.8 3.3 - 5.1 mmol/L [facility] Chloride 104 96 - 108 mmol/L [facility] Carbon Dioxide 24 22 - 32 mmol/L [facility] Anion Gap 14 7 - 16 [facility] Glucose 184(H) 70 - 100 mg/dL [facility] BUN 25 8 - 25 mg/dL [facility] Creatinine 1.1 0.5 - 1.1 mg/dL [facility] Comment: NOTE: Estimated GFR (Cockroft-Gault) will NOT be calculated unless patient Height and Weight were entered. Also, Kidney Disease Stage (GFR) and Estimated GFR (Cockroft-Gault) will NOT be calculated if Creatinine result is <0.2. Kidney Disease Stage 63 mL/MIN [facility] Comment: NOTE; ??The GFR is [...] dialysis Calcium 10.8(H) 8.6 - 10.3 mg/dL [facility] Total Protein 8.5(H) 6.4 - 8.3 g/dL [facility] Albumin 4.0 3.5 - 5.0 g/dL [facility] Globulin 4.5(H) 2.3 - 3.5 gm/dL [facility] Albumin/Globulin Ratio 0.9(L) 1.1 - 1.8 [facility] Total Bilirubin 0.3 0.0 - 1.2 mg/dL [facility] AST 15 0 - 32 U/L [facility] ALT 12 0 - 33 U/L [facility] Alkaline Phosphatase 132(H) 35 - 104 U/L [facility] 04/02/2020 1:12 PM CDT 04/02/2020 1:21 PM CDT Narrative Resulting Agency Comment CLI Cherelle Corcoran MD LAB BLOOD ORDERAB LES Final Result Performing Organization Address City/[facility]/ZIP Co de Phone Number [address] [phone] * Iron profile w/ IBC (04/02/2020 1:12 PM CDT) Iron 79 37 - 145 ug/dL [facility] TIBC 247 228 - 428 ug/dL [facility] Transferrin % Sat 32 20 - 50 % [facility] Iron 79 37 - 145 ug/dL [facility] TIBC 247 228 - 428 ug/dL [facility] Transferrin % Sat 32 20 - 50 % [facility] Blood specimen (specimen) 04/02/2020 1:12 PM CDT 04/02/2020 1:21 PM CDT Narrative Resulting Agency Comment CLI Cherelle Corcoran MD LAB BLOOD ORDERAB LES Final Result Performing Organization Address City/[facility]/ZIP Co de Phone Number [address] [phone] * (ABNORMAL) CBC with auto differential (04/02/2020 1:12 PM CDT) WBC 9.6 3.8 - 9.9 X10 3/ul [facility] RBC 4.13 3.90 - 5.20 x10 6/ul [facility] Hemoglobin 11.5(L) 11.9 - 15.5 g/dL [facility] Hct 36.4 35.6 - 45.5 % [facility] MCV 88.1 81.3 - 96.4 fl [facility] MCH 27.8 27.1 - 33.3 pg [facility] MCHC 31.6(L) 32.3 - 35.7 g/dl [facility] RDW 16.6(H) 11.1 - 14.9 % [facility] Plt Count 296 150 - 400 x10 3/ul [facility] MPV 10.0 9.1 - 12.3 fl [facility] Over 40 Females [facility] Neut % 57.8 % [facility] AnchorFree Immature Gran % 0.2 % [place] [facility] [email or web address] Lymph % 35.6 % [facility] Dacuda - Tivra Hamblen % 5.1 % [facility] [employer] Eos % 0.8 % [facility] [employer] AUTO BASO % 0.5 % [facility] NEUTROPHIL ABS # 5.6 1.7 - 6.5 x10 3/ul [facility] Immature Gran # 0.0 0.0 - 0.1 x10 3/ul [facility] Absolute Lymphs (auto) 3.4(H) 0.8 - 3.3 x10 3/ul [email or web address] Absolute Monos (auto) 0.5 0.2 - 0.8 x10 3/ul [facility] Absolute Eos (auto) 0.1 0.0 - 0.5 x10 3/ul [facility] Over 40 Females [facility] BASOPHIL ABS # 0.1 0.0 - 0.1 x10 3/ul [facility] Nucleat RBC Rel Count 0.0 #/100WBC [facility] NRBC abs 0.00 0.00 - 0.01 x10 3/ul [facility] Absolute Neutrophils 5,600 200 - 8,000 /ul [facility] Blood specimen (specimen) 04/02/2020 1:12 PM CDT 04/02/2020 1:21 PM CDT Narrative Resulting Agency Comment CLI us Cherelle Corcoran MD LAB BLOOD ORDERAB LES Final Result [facility] [address] [place], [place] [address] [phone] documented in this encounter Visit Diagnoses Diagnosis Uncontrolled type 2 diabetes mellitus with hyperglycemia (HCC)- Primary Need for vaccination Need for prophylactic vaccination and inoculation against unspecified single disease Iron deficiency anemia, unspecified iron deficiency anemia type Pain in right leg Ulcer of toe of right foot, with fat layer exposed (HCC) 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 (HCC) Hypertension associated with diabetes (HCC) Unspecified essential hypertension Gastroesophageal reflux disease, unspecified whether esophagitis present Anemia, unspecified type Gastritis without bleeding, unspecified chronicity, unspecified gastritis type documented in this encounter Discontinued Medications Medication Sig Discontinue Reason Start Date End Da te gabapentin (NEURONTIN) 400 mg capsuleIndications:Other diabetic neurological complication associated with type 2 diabetes mellitus (HCC) Take 1 capsule (400 mg total) by mouth 3 (three) times a day Therapy completed 12/09/2019 04/02/2020 documented as of this encounter Historical Medications * This list may reflect changes made after this encounter. meclizine (ANTIVERT) 25 mg tablet TK 1 T PO TID PRF DIZZINESS 03/25/2020 1 added in this encounter Orders Immunization/Injection Count Last Ordered Date First Ordered Date FLU VACCINE HIGH DOSE QUAD P F 65Y+ IM - FLUZONE HIGH DOS 1 04/02/2020 documented in this encounter Additional Health Concerns Infection Onset Date Last Indicated Resolved Time MRSA 01/06/2020 01/06/2020 02/06/2021 5:00 AM CDT documented as of this encounter Care Teams Vp Information Technology Relationship Specialty Start Date End Date Cherelle Corcoran MD PCP - General Family Medicine 08/30/19 Mark Queen MD Consulting Physician Infectious Diseases 01/10/20 documented as of this encounter
--- OUTSIDE RECORDS SUMMARY | 2024-07-04 04:21 | XMS_ITS | Encounter Summary ---
Author Organization [facility] Healthcare Address [address] [place] [address] Care Team Providers Care Anthropology Faculty Member Name Role Phone Cherelle Corcoran MD Primary Care Pro vider Mark Queen MD Unavailable [phone] Reason for Referral * Consultation (Routine) - Closed Specialty Diagnoses / Procedures Referred By Contac t Referred To Contact Diabetes and Nutrition Services Diagnoses Type 2 diabetes mellitus with diabetic peripheral angiopathy without gangrene, unspecified whether halfway insulin use (HCC) Tasha Dick MD [address] [place] [address] [place] [address] Phone: tel: fax: [address] [phone] Referral ID Status Reason Start Date Expiration Date V isits Requested Visits Authorized [id number] Closed Specialty Services Required 12/16/2019 06/26/2021 10 10 Question Answer [email or web address] Yes Service requested Diabetes Self-Management Education/Training (DSMT) + Medical Nutrition Therapy (MNT) Diabetes Self-Management Education/Training (DSMT) Hours of Treatment Initial DSME/T: 10 hours (1 individual + 9 group) DNCNRFR All 10 DSMT content areas as appropriate Reason for Referral New Diagnosis [id number] None Complications/Comorbidities (Check all that apply): Obesity [id number] Initial / Annual Follow-up MNT Please select the performing region: [facility] [[id number]] # of visits: 10 Reason for Visit * Consultation (Routine) - Closed Specialty Diagnoses / Procedures Referred By Contac t Referred To Contact Diabetes and Nutrition Services Diagnoses Type 2 diabetes mellitus with diabetic peripheral angiopathy without gangrene, unspecified whether halfway insulin use ([facility]) Tasha Dick MD [address] [place] [address] [place] [address] Phone: tel: fax: [address] [phone] Referral ID Status Reason Start Date Expiration Date V isits Requested Visits Authorized [id number] Closed Specialty Services Required 12/16/2019 06/26/2021 10 10 Encounter Details Date Type Department Care Team (Latest Contact Info) Description 03/28/2020 9:45 AM CDT - 03/28/2020 11:59 PM CDT Hospital Encounter [facility] Nutrition Counseling and Diabetic Education [address] [place] [address] Type 2 diabetes mellitus with diabetic peripheral angiopathy without gangrene, 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 ([facility]/HCC) Discharge Disposition: Discharge to home or self [...] on file 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 Gender Identity Female 02/08/2020 6:39 PM [...] (Latest Contact Info) Description 07/13/2024 9:00 AM CRYSTAL MACHINING COORDINATOR Hospital Encounter [facility] [address] [place] [address] Jaya Grier MD [address] [facility] [address] [place] [address] 07/13/2024 9:00 AM CRYSTAL MACHINING COORDINATOR - 07/13/2024 9:30 AM CRYSTAL MACHINING COORDINATOR Surgery [facility] [address] [place] [address] Jaya Grier MD [facility] [address] [place] [address] ESOPHAGOGASTRODUODENOSCOPY Scheduled Procedures Name Priority Associated Diagnoses Date/Ti oh ESOPHAGOGASTRODUODENOSCOPY Anemia, unspecified type Gastritis without bleeding, unspecified chronicity, unspecified gastritis type 07/13/2024 9:00 AM CRYSTAL MACHINING COORDINATOR COLONOSCOPY Iron deficiency anemia due to chronic blood loss Scheduled Referrals Name Type Priority Associated Diagnoses Order Schedule Ambulatory referral to Diabetic Education & Nutrition Services Outpatient Referral Routine Type 2 diabetes mellitus with diabetic peripheral angiopathy without gangrene, unspecified whether halfway insulin use ([facility]) Once for 1 Occurrences starting 03/28/2020 until 03/28/2020 documented as of this encounter Visit Diagnoses Diagnosis Type 2 diabetes mellitus with diabetic peripheral angiopathy without gangrene, unspecified whether halfway insulin use (HCC) Anemia, unspecified type Gastritis without bleeding, unspecified chronicity, unspecified gastritis type documented in this encounter Additional Health Concerns Infection Onset Date Last Indicated Resolved Time MRSA 01/06/2020 01/06/2020 02/06/2021 5:00 AM CDT documented as of this encounter Care Teams Anthropology Faculty Member Relationship Specialty Start Date End Date Cherelle Corcoran MD PCP - General Family Medicine 08/30/19 Mark Queen MD Consulting Physician Infectious Diseases 01/10/20 documented as of this encounter
--- OUTSIDE RECORDS SUMMARY | 2024-07-04 04:22 | XMS_ITS | Encounter Summary ---
Author Organization [facility] Healthcare Address [address] [place] [address] Care Team Providers Care Green Coffee Blender Name Role Phone Cherelle Corcoran MD Primary Care Pro vider Mark Queen MD Unavailable [phone] Encounter Details Date Type Department Care Team (Late st Contact Info) Description 01/16/2020 11:40 AM CDT Lab [facility] [address] [place] [address] Acute osteomyelitis of toe of right foot ([facility]/HCC) Social History Tobacco Use Types Packs/Day Years Used Date Smoking Tobacco: Never Smokeless Tobacco: Never Alcohol Use Standard Drinks/Week Comments Not Currently 0 (1 standard drink = 0.6 oz pur e alcohol) PHQ-2 Answer Date Recorded PHQ-2 Total Score 0 01/17/2020 Comments No Sex and Gender Information Value Date Recorded Sex Assigned at Not on file Legal Sex Female 9:03 AM ROLLER PRESSER OPERATOR Gender Identity Female 02/08/2020 6:39 PM CDT Sexual Orientation Not on file documented as of this encounter Plan of Treatment Upcoming Encounters Date Type Department Care Team (Latest Contact Info) Description 07/13/2024 9:00 AM ROLLER PRESSER OPERATOR Hospital Encounter [facility] [address] [place], [place] [id number] Jaya Grier MD [address] [address] 07/13/2024 9:00 AM ROLLER PRESSER OPERATOR - 07/13/2024 9:30 AM ROLLER PRESSER OPERATOR Surgery [facility] [address] [place] [address] Jaya Grier MD [address] [facility] [address] [place] [address] ESOPHAGOGASTRODUODENOSCOPY Scheduled Procedures Name Priority Associated Diagnoses Date/Ti me ESOPHAGOGASTRODUODENOSCOPY Anemia, unspecified type Gastritis without bleeding, unspecified chronicity, unspecified gastritis type 07/13/2024 9:00 AM ROLLER PRESSER OPERATOR COLONOSCOPY Iron deficiency anemia due to chronic blood loss documented as of this encounter Procedures Procedure Name Priority Date/Time Associated Diagnosis Comments EGFR Routine 01/16/2020 11:37 AM CDT Acute osteomyelitis of toe of right foot (CMS/HCC) DIFFERENTIAL AUTO Routine 01/16/2020 11: 37 AM CDT Acute osteomyelitis of toe of right foot (CMS/HCC) CBC WITH AUTO DIFFERENTIAL Routine 01/16/2020 11:37 AM CDT Acute osteomyelitis of toe of right foot (CMS/HCC) ERYTHROCYTE SEDIMENTATION RATE Routine 01/16/2020 11:37 AM CDT Acute osteomyelitis of toe of right foot (CMS/HCC) VANCOMYCIN LEVEL TROUGH Routine 01/16/2020 11:37 AM CDT Acute osteomyelitis of toe of right foot (CMS/HCC) COMPREHENSIVE METABOLIC PANEL Routine 01/16/2020 11:37 AM CDT Acute osteomyelitis of toe of right foot (CMS/HCC) documented in this encounter Results * eGFR (01/16/2020 11:37 AM CDT) eGFR 87 mL/min/1.7 3 m2 [facility] ([place]) Comment: Interpretive Data Reference Interval Normal ?>/= 90 mL/min/1.73m2 Mildly decreased* ? 60 - 89 mL/min/1.73m2 Mildly to moderately decreased ?45 - 59 mL/min/1.73m2 Moderately to severely decreased ??30 - 44 mL/min/1.73m2 Severely decreased ?15 - 29 mL/min/1.73m2 Kidney Failure ?< 15 ??mL/min/1.73m2 *Relative to young adult level If -Mongolian multiply value by 1.16. Estimated glomerular filtration [...] was last reviewed 2016. Blood specimen (specimen) 01/16/2020 11:37 AM CDT 01/16/2020 11:38 AM CDT us Mark Queen MD LAB BLOOD ORDERABLES Final Result [facility] ([place]) 1 [facility] Department [place] [address] * (ABNORMAL) Differential, auto (01/16/2020 11:37 AM CDT) Neutrophil abs 9.7(H) 1.7 - 6.5 K/cumm [facility] ([place]) Imm gran abs 0.1 0.0 - 0.1 K/cumm [facility] ([place]) Lymphocyte abs 2.1 0.8 - 3.3 K/cumm [facility] ([place]) Monocyte abs 0.7 0.2 - 0.8 K/cumm [facility] ([place]) Eosinophil abs 0.2 0.0 - 0.5 K/cumm [facility] ([place]) Basophil abs 0.1 0.0 - 0.1 K/cumm [facility] ([place]) Neutrophil pct 75.8 % [facility] ([place]) Comment: Interpretive [...] revised on 2017. Lymphocyte pct 16.1 % [facility] ([place]) Comment: Interpretive Data Percent cell count reference ranges are not reported, since discordance with absolute values may lead to misinterpretation of CBC data. Current Interpretive Data was last revised on 2017. Monocyte pct 5.6 % [facility] ([place]) Comment: Interpretive Data Percent cell count reference ranges are not reported, since discordance with absolute values may lead to misinterpretation of CBC data. Current Interpretive Data was last revised on 2017. Eosinophil pct 1.7 % [facility] ([place]) Comment: Interpretive Data Percent cell count reference ranges are not reported, since discordance with absolute values may lead to misinterpretation of CBC data. Current Interpretive Data was last revised on 2017. Basophil pct 0.4 % [facility] ([place]) Comment: Interpretive Data Percent cell count reference ranges are not reported, since discordance with absolute values may lead to misinterpretation of CBC data. Current Interpretive Data was last revised on 2017. Blood specimen (specimen) 01/16/2020 11:37 AM CDT 01/16/2020 11:38 AM CDT us Mark Queen MD LAB BLOOD ORDERABLES Final Result [facility] ([place]) 1 [facility] Department [place] [address] * (ABNORMAL) Erythrocyte sedimentation rate (01/16/2020 11:37 AM CDT) Erythrocyte sedimentation rate 113(H) 1 - 30 mm/hr [facility] ([place]) Blood specimen (specimen) (Blood, Venous) 01/16/2020 11:37 AM CDT 01/16/2020 11:38 AM CDT Mark Queen MD LAB BLOOD ORDERABLES Final Result [facility] ([place]) 1 [facility] Department [place] [address] * (ABNORMAL) CBC with auto differential (01/16/2020 11:37 AM CDT) Pathologist [facility] WBC 12.8(H) 3.8 - 9.9 K/cumm [facility] ([place]) Hgb 8.6(L) 11.9 - 15.5 g/dL [facility] ([place]) Hct 28.3(L) 35.6 - 45.5 % [facility] ([place]) Plt 646(H) 150 - 400 K/cumm [facility] ([place]) MPV 9.8 9.1 - 12.3 fL [facility] ([place]) RBC 3.02(L) 3.90 - 5.20 M/cumm [facility] ([place]) MCV 93.7 81.3 - 96.4 fL [facility] ([place]) MCH 28.5 27.1 - 33.3 pg [facility] ([place]) MCHC 30.4(L) 32.3 - 35.7 g/dL [facility] ([place]) RDW CV 15.7(H) 11.1 - 14.9 % [facility] ([place]) RDW SD 52.6(H) 35.7 - 48.1 fL [facility] ([place]) NRBC abs 0.02(H) 0.00 - 0.01 K/cumm [facility] ([place]) Blood specimen (specimen) 01/16/2020 11:37 AM CDT 01/16/2020 11:38 AM CDT Mark Queen MD LAB BLOOD ORDERABLES Final Result [facility] ([place]) 1 [facility] Department [place] [address] * (ABNORMAL) Comprehensive metabolic panel (01/16/2020 11:37 AM CDT) Sodium 137 135 - 145 mmol/L [facility] ([place]) Potassium, pl 3.9 3.3 - 4.9 mmol/L [facility] ([place]) Chloride 99 97 - 110 mmol/L [facility] ([place]) CO2 26 22 - 32 mmol/L [facility] ([place]) Anion gap 12 2 - 15 mmol/L [facility] ([place]) BUN 11 8 - 25 mg/dL [facility] ([place]) Creatinine 0.71 0.60 - 1.10 mg/dL [facility] ([place]) Glucose 136 70 - 199 mg/dL [facility] ([place]) [...] Calcium 10.0 8.5 - 10.3 mg/dL [facility] ([place]) Bilirubin, total <0.2 0.1 - 1.2 mg/dL [facility] ([place]) Protein, pl 8.5 6.5 - 8.5 g/dL [facility] ([place]) Albumin 3.1(L) 3.5 - 5.0 g/dL [facility] ([place]) Alk phos 266(H) 40 - 130 Units/L [facility] ([place]) ALT 14 7 - 45 Units/L [facility] ([place]) AST 21 10 - 45 Units/L [facility] ([place]) Blood specimen (specimen) (Blood, Venous) 01/16/2020 11:37 AM CDT 01/16/2020 11:38 AM CDT us Mark Queen MD LAB BLOOD ORDERABLES Final Result Performing Organization Address City/[facility]/ZIP Co de Phone Number [facility] ([place]) 1 [facility] [place] [address] * Vancomycin, trough (01/16/2020 11:37 AM CDT) Vancomycin trough 15.9 15.0 - 20.0 mcg/mL [facility] ([place]) Comment: Intepretive Data Therapeutic range: ??15 - 20 mcg/ml Current interpretive data was last revised on 2014 Blood specimen (specimen) (Blood, Venous) 01/16/2020 11:37 AM CDT 01/16/2020 11:38 AM CDT us Mark Queen MD LAB BLOOD ORDERABLES Final Result Performing Organization Address [facility] Co de Phone Number [facility] ([place]) 1 [facility] [place] [address] documented in this encounter Visit Diagnoses Diagnosis Acute osteomyelitis of toe of right foot (HCC) Anemia, unspecified type Gastritis without bleeding, unspecified chronicity, unspecified gastritis type documented in this encounter Additional Health Concerns Infection Onset Date Last Indicated Resolved Time MRSA 01/06/2020 01/06/2020 02/06/2021 5:00 AM CDT documented as of this encounter Care Teams Green Coffee Blender Relationship Specialty Start Date End Date Cherelle Corcoran MD PCP - General Family Medicine 08/30/19 Mark Queen MD Consulting Physician Infectious Diseases 01/10/20 documented as of this encounter
--- OUTSIDE RECORDS SUMMARY | 2024-07-04 04:22 | XMS_ITS | Encounter Summary ---
Author Organization [facility] Healthcare Address [address] [place] [address] Care Team Providers Care Package Pick Up Name Role Phone Cherelle Corcoran MD Primary Care Pro vider Mark Queen MD Unavailable [phone] Encounter Details Date Type Department Care Team (Latest Contact Info) Description 02/02/2020 4:00 PM CDT - 02/02/2020 11:59 PM CDT Hospital Encounter [facility] [address] [place] [address] Anat Pelayo, DPM [address] [place] [address] Discharge Disposition: Discharge to home or self [...] on file Legal Sex Female 9:03 AM TOOLING SUPERVISOR Gender Identity Female 02/08/2020 6:39 PM [...] (Latest Contact Info) Description 07/13/2024 9:00 AM TOOLING SUPERVISOR Hospital Encounter [facility] [address] [place] [address] Jaya Grier MD [facility]0 [facility] [address] [place] [address] 07/13/2024 9:00 AM TOOLING SUPERVISOR - 07/13/2024 9:30 AM TOOLING SUPERVISOR Surgery [facility] [address] [place] [address] Jaya Grier MD [facility]0 [facility] [address] [place] [address] ESOPHAGOGASTRODUODENOSCOPY Scheduled Procedures Name Priority Associated Diagnoses Date/Ti nv ESOPHAGOGASTRODUODENOSCOPY Anemia, unspecified type Gastritis without bleeding, unspecified chronicity, unspecified gastritis type 07/13/2024 9:00 AM TOOLING SUPERVISOR COLONOSCOPY Iron deficiency anemia due to chronic blood loss documented as of this encounter Visit Diagnoses Not on filedocumented in this encounter Additional Health Concerns Infection Onset Date Last Indicated Resolved Time MRSA 01/06/2020 01/06/2020 02/06/2021 5:00 AM CDT documented as of this encounter Care Teams Package Pick Up Relationship Specialty Start Date End Date Cherelle Corcoran MD PCP - General Family Medicine 08/30/19 Mark Queen MD Consulting Physician Infectious Diseases 01/10/20 documented as of this encounter
--- OUTSIDE RECORDS SUMMARY | 2024-07-04 04:22 | XMS_ITS | Encounter Summary ---
Author Organization [facility] Healthcare Address [address] [place] [address] Care Team Providers Care Typesetter Perforator Operator Name Role Phone Cherelle Corcoran MD Primary Care Pro vider Mark Queen MD Unavailable [phone] Encounter Details Date Type Department Care Team (Latest Contact Info) Description 02/03/2020 11:04 AM CDT - 02/03/2020 11:59 PM CDT Hospital Encounter [address] [place] [address] Discharge Disposition: Discharge to home or self [...] on file Legal Sex Female 9:03 AM VENEER TRIMMER Gender Identity Female 02/08/2020 6:39 PM CDT Sexual Orientation Not on file documented as of this encounter Medications at Time of Discharge ferrous sulfate 325 mg (65 mg of elemental iron) tabletIndications: Iron Deficiency Anemia Take 1 tablet (325 mg total) by mouth daily with breakfast 30 tablet 11 01/11/2020 07/22/20 21 Accu-Chek Sangita Plus test strp stripIndications:U [...] day as needed for constipation 01/10/2020 10/03/19 gabapentin (NEURONTIN) 400 mg capsuleIndications :Other diabetic neurological complication associated with type 2 diabetes mellitus (HCC) Take 1 capsule (400 mg total) by mouth 3 (three) times a day 270 capsule 1 12/09/2019 04/02/20 20 heparin (heparin flush) 100 [...] (Latest Contact Info) Description 07/13/2024 9:00 AM VENEER TRIMMER Hospital Encounter [facility] [address] [place] [address] Jaya Grier MD [facility] [facility] [address] [place] [address] 07/13/2024 9:00 AM VENEER TRIMMER - 07/13/2024 9:30 AM VENEER TRIMMER Surgery [facility] [address] [place] [address] Jaya Grier MD [facility] [address] [place] [address] ESOPHAGOGASTRODUODENOSCOPY Scheduled Procedures Name Priority Associated Diagnoses Date/Ti me ESOPHAGOGASTRODUODENOSCOPY Anemia, unspecified type Gastritis without bleeding, unspecified chronicity, unspecified gastritis type 07/13/2024 9:00 AM VENEER TRIMMER COLONOSCOPY Iron deficiency anemia due to chronic blood loss documented as of this encounter Procedures Procedure Name Priority Date/Time Associated Diagnosis Comments EGFR Routine 02/03/2020 8:50 AM CDT VANCOMYCIN LEVEL TROUGH Routine 02/03/2020 8:50 AM CDT BASIC METABOLIC PANEL Routine 02/03/2020 8:50 AM CDT documented in this encounter Results * eGFR (02/03/2020 8:50 AM CDT) eGFR 49 mL/min/1.7 3 m2 [facility] Comment: Interpretive Data Reference Interval Normal ?>/= 90 mL/min/1.73m2 Mildly decreased* ? 60 - 89 mL/min/1.73m2 Mildly to moderately decreased ?45 - 59 mL/min/1.73m2 Moderately to severely decreased ??30 - 44 mL/min/1.73m2 Severely decreased ?15 - 29 mL/min/1.73m2 Kidney Failure ?< 15 ??mL/min/1.73m2 *Relative to young adult level If -Spanish multiply value by 1.16. Estimated glomerular filtration [...] was last reviewed 2016. Blood specimen (specimen) 02/03/2020 8:50 AM CDT 02/03/2020 4:20 PM CDT us Larry Jacobs MD LAB BLOOD ORDERABLES Fi nal Result [facility] [address] Department [place] [address] * Vancomycin, trough Fax results to [phone] (02/03/2020 8:50 AM CDT) Vancomycin trough 14.5 10.0 - 20.0 mcg/mL [facility] Comment: Interpretive Data Desired Vancomycin trough levels are 10.0 to 20.0 mcg/mL for combined therapy with aminoglycosides (see following exceptions). Desired trough levels for specific clinical indications: - Urinary tract infections (UTI): ??5.0 mcg/mL - Methicillin Resistant staphylococcal infection: ??10.0 - 15.0 mcg/mL - Central nervous system (BOOT MAKER) infection, endocarditis, ??osteomyelitis, pneumonia: ??With aminoglycoside 10.0 - 15.0 mcg/mL ??Vancomycin alone ?15.0 - 20.0 mcg/mL. -- Pharmacy will manage the oversight of therapeutic monitoring and dose adjustment for vancomycin. ??Physicians may opt out of this service. ??I this service is not utilized, special attention by caregivers to the timing of the dose relative to the draw time(s) of the above levels is needed for interpretation. Blood specimen (specimen) 02/03/2020 8:50 AM CDT 02/03/2020 4:20 PM CDT Narrative [facility] - 02/03/2020 4:57 PM CDT Fax results to [phone] us Larry Jacobs MD LAB BLOOD ORDERABLES Fi nal Result [facility] [address] Department [place] [address] * (ABNORMAL) Basic metabolic panel (02/03/2020 8:50 AM CDT) Sodium 139 135 - 145 mmol/L [facility] Potassium, pl 4.1 3.3 - 4.9 mmol/L [facility] Chloride 103 97 - 110 mmol/L [facility] CO2 24 22 - 32 mmol/L [facility] Anion gap 12 2 - 15 mmol/L [facility] BUN 16 8 - 25 mg/dL [facility] Creatinine 1.14(H) 0.60 - 1.10 mg/dL [facility] Glucose 206(H) 70 - 199 mg/dL [facility] Comment: Interpretive Data Fasting glucose [...] 2017. Calcium 9.3 8.5 - 10.3 mg/dL [facility] Blood specimen (specimen) 02/03/2020 8:50 AM CDT 02/03/2020 4:20 PM CDT us Larry Jacobs MD LAB BLOOD ORDERABLES Fi nal Result [facility] [address] Department [place] [address] documented in this encounter Visit Diagnoses Not on filedocumented in this encounter Additional Health Concerns Infection Onset Date Last Indicated Resolved Time MRSA 01/06/2020 01/06/2020 02/06/2021 5:00 AM CDT documented as of this encounter Care Teams Typesetter Perforator Operator Relationship Specialty Start Date End Date Cherelle Corcoran MD PCP - General Family Medicine 08/30/19 Mark Queen MD Consulting Physician Infectious Diseases 01/10/20 documented as of this encounter
--- OUTSIDE RECORDS SUMMARY | 2024-07-04 04:22 | XMS_ITS | Encounter Summary ---
Author Organization [facility] Healthcare Address [address] [place] [address] Care Team Providers Care Child Protective Services Social Worker Name Role Phone Cherelle Corcoran MD Primary Care Pro vider Mark Queen MD Unavailable [phone] Encounter Details Date Type Department Care Team (Latest Contact Info) Description 01/19/2020 4:03 PM CDT - 01/19/2020 11:59 PM CDT Hospital Encounter [facility] [address] [place] [address] Anat Pelayo, DPM [address] [place] [address] Discharge Disposition: Discharge to home or self [...] on file Legal Sex Female 9:03 AM CHROME TANNING DRUM OPERATOR Gender Identity Female 02/08/2020 6:39 PM CDT Sexual Orientation Not on file documented as of this encounter Medications at Time of Discharge ferrous sulfate 325 mg (65 mg of elemental iron) tabletIndications: Iron Deficiency Anemia Take 1 tablet (325 mg total) by mouth daily with breakfast 30 tablet 01/11/2020 01/11/20 21 blood glucose diagnostic stripIndications:U ncontrolled type 2 diabetes mellitus with hyperglycemia (HCC) Use to check blood sugar 3-4 times a day. 100 each 01/17/2020 01/20/20 20 docusate sodium (COLACE) 100 mg capsuleIndications :constipation Take 1 capsule (100 mg total) by mouth 2 (two) times a day as needed for constipation 01/10/2020 10/03/19 21 gabapentin (NEURONTIN) 400 mg capsuleIndications :Other diabetic neurological complication associated with type 2 diabetes mellitus (HCC) Take 1 capsule (400 mg total) by mouth 3 (three) times a day 270 capsule 1 12/09/2019 04/02/20 20 HYDROcodone-acetam inophen (NORCO) 5-325 mg per tabletIndications: Pain Take 1 tablet by mouth every 6 (six) hours as needed for pain 30 tablet 01/10/2020 02/14/20 20 insulin glargine (LANTUS,BASAGLAR) 100 unit/mL (3 mL) insulin penIndications:typ e 2 diabetes mellitus Inject 32 Units under the skin nightly 27 mL 1 01/17/2020 01/20/20 20 lisinopriL (PRINIVIL,ZESTRIL) 10 mg tabletIndications: Essential hypertension Take 1 tablet (10 mg total) by mouth daily 30 tablet 5 12/09/2019 10/03/19 21 pen needle, diabetic 32 gauge x 3/16 needleIndications: Uncontrolled type 2 diabetes mellitus with hyperglycemia (HCC) Use to inject basaglar nightly 100 each 01/17/2020 06/25/19 22 syringe with needle, insulin (INSULIN SYRINGE-NEEDLE U-100 MISC) 3 times a day 09/12/2017 12/01/19 23 vancomycin (VANCOCIN) 1,000 mg injection 01/17/2020 02/14/20 20 vancomycin IVBP Infuse 1,750 mg into a venous catheter daily Patient is to infuse 2 syringes at 35 ml (2 x 875mg = 1750mg) each for a total of 70 ml one time every 24 hours 01/12/2020 01/24/20 20 Victoza 2-Vivek 0.6 mg/0.1 mL (18 [...] (Latest Contact Info) Description 07/13/2024 9:00 AM CHROME TANNING DRUM OPERATOR Hospital Encounter [facility] [address] [place] [address] Jaya Grier MD [facility]0 [facility] [address] [place] [address] 07/13/2024 9:00 AM CHROME TANNING DRUM OPERATOR - 07/13/2024 9:30 AM CHROME TANNING DRUM OPERATOR Surgery [facility] [address] [place] [address] Jaya Grier MD [facility]0 [facility] [address] [place] [address] ESOPHAGOGASTRODUODENOSCOPY Scheduled Procedures Name Priority Associated Diagnoses Date/Ti pr ESOPHAGOGASTRODUODENOSCOPY Anemia, unspecified type Gastritis without bleeding, unspecified chronicity, unspecified gastritis type 07/13/2024 9:00 AM CHROME TANNING DRUM OPERATOR COLONOSCOPY Iron deficiency anemia due to chronic blood loss documented as of this encounter Visit Diagnoses Not on filedocumented in this encounter Additional Health Concerns Infection Onset Date Last Indicated Resolved Time MRSA 01/06/2020 01/06/2020 02/06/2021 5:00 AM CDT documented as of this encounter Care Teams Child Protective Services Social Worker Relationship Specialty Start Date End Date Cherelle Corcoran MD PCP - General Family Medicine 08/30/19 Mark Queen MD Consulting Physician Infectious Diseases 01/10/20 documented as of this encounter
--- OUTSIDE RECORDS SUMMARY | 2024-07-04 04:22 | XMS_ITS | Encounter Summary ---
Author Organization [facility] Home Care Servic es Address [address] [place] [address] Phone Care Team Providers Care Employee Relations Administrator Name Role Phone Cherelle Corcoran MD Primary Care Pro vider Mark Gallo MD Unavailable [phone] Encounter Details Date Type Department Care Team (Late st Contact Info) Description 02/01/2020 Orders Only [facility] [address] [place] [id number] Brigid Sheffield RPh Social History Tobacco Use [...] on file Legal Sex Female 9:03 AM PLASTIC PRODUCTION MACHINE SETTER Gender Identity Female 02/08/2020 6:39 PM CDT Sexual Orientation Not on file documented as of this encounter Progress Notes * Brigid Sheffield RPh - 02/01/2020 1:06 PM CDT Per vancomycin protocol/Dr Gallo/Brigid Sheffield pharmD Please resume vancomycin at 1000mg in 40 ml q 24 hours and check a trough and BMP before the third home dose on Thursday02/03/20. Please fax results to [facility] Home Infusion at [phone] Then resume previous lab orders (Q Thursday/ labs) documented in this encounter Plan of Treatment Upcoming Encounters Date Type Department Care Team (Latest Contact Info) Description 07/13/2024 9:00 AM PLASTIC PRODUCTION MACHINE SETTER Hospital Encounter [facility] [address] [place] [address] Jaya Grier MD [address] [place] [address] DR GAINES [address] [place] [address] 07/13/2024 9:00 AM PLASTIC PRODUCTION MACHINE SETTER - 07/13/2024 9:30 AM PLASTIC PRODUCTION MACHINE SETTER Surgery [facility] [address] [place] [address] Jaya Grier MD [address] [place] [address] DR GAINES [address] [place] [address] ESOPHAGOGASTRODUODENOSCOPY Scheduled Procedures Name Priority Associated Diagnoses Date/Ti me ESOPHAGOGASTRODUODENOSCOPY Anemia, unspecified type Gastritis without bleeding, unspecified chronicity, unspecified gastritis type 07/13/2024 9:00 AM PLASTIC PRODUCTION MACHINE SETTER COLONOSCOPY Iron deficiency anemia due to chronic blood loss documented as of this encounter Visit Diagnoses Not on filedocumented in this encounter Additional Health Concerns Infection Onset Date Last Indicated Resolved Time MRSA 01/06/2020 01/06/2020 02/06/2021 5:00 AM CDT documented as of this encounter Care Teams Employee Relations Administrator Relationship Specialty Start Date End Date Cherelle Corcoran MD PCP - General Family Medicine 08/30/19 Mark Gallo MD Consulting Physician Infectious Diseases 01/10/20 documented as of this encounter
--- OUTSIDE RECORDS SUMMARY | 2024-07-04 04:22 | XMS_ITS | Encounter Summary ---
Author Organization [facility] Home Care Servic es Address [address] [place] [address] Phone Care Team Providers Care Safety Analyst Name Role Phone Cherelle Corcoran MD Primary Care Pro vider Mark Queen MD Unavailable [phone]- [phone] Reason for Visit * Auth/Cert Specialty Diagnoses / Procedures Referred By Maryse t Referred To Contact Referral ID Status Reason Start Date Expiration Date Visits Re quested Visits Authorized [id number] 1 1 Encounter Details Date Type Department Care Team (Late st Contact Info) Description 01/30/2020 Home Care Visit [facility] Home Health - [address] [address] [address] [place] [address] Brigid Keenan, AEROSPACE MANAGER SCREENING CASE COMMUNICATION Social History Tobacco Use [...] on file Legal Sex Female 9:03 AM MATTRESS SPECIALIST Gender Identity Female 02/08/2020 6:39 PM CDT Sexual Orientation Not on file documented as of this encounter Plan of Treatment Upcoming Encounters Date Type Department Care Team (Latest Contact Info) Description 07/13/2024 9:00 AM MATTRESS SPECIALIST Hospital Encounter [facility] [address] [place] [address] Jaya Grier MD [address] [facility] [address] [address] [place] [address] 07/13/2024 9:00 AM MATTRESS SPECIALIST - 07/13/2024 9:30 AM MATTRESS SPECIALIST Surgery [facility] [address] [place] [address] Jaya Grier MD [facility] [facility] [address] [place] [address] ESOPHAGOGASTRODUODENOSCOPY Scheduled Procedures Name Priority Associated Diagnoses Date/Ti me ESOPHAGOGASTRODUODENOSCOPY Anemia, unspecified type Gastritis without bleeding, unspecified chronicity, unspecified gastritis type 07/13/2024 9:00 AM MATTRESS SPECIALIST COLONOSCOPY Iron deficiency anemia due to chronic blood loss documented as of this encounter Visit Diagnoses Not on filedocumented in this encounter Additional Health Concerns Infection Onset Date Last Indicated Resolved Time MRSA 01/06/2020 01/06/2020 02/06/2021 5:00 AM CDT documented as of this encounter Care Teams Safety Analyst Relationship Specialty Start Date End Date Cherelle Corcoran MD PCP - General Family Medicine 08/30/19 Mark Queen MD Consulting Physician Infectious Diseases 01/10/20 documented as of this encounter
--- OUTSIDE RECORDS SUMMARY | 2024-07-04 04:22 | XMS_ITS | Encounter Summary ---
Author Organization [facility] Home Care Servic es Address [address] [place] [address] Phone Care Team Providers Care Heating Unit Installer Name Role Phone Cherelle Corcoran MD Primary Care Pro vider Mark Gallo MD Unavailable [phone]- [phone] Reason for Visit * Reason Comments Wound Care * Auth/Cert Specialty Diagnoses / Procedures Referred By Maryse t Referred To Contact Referral ID Status Reason Start Date Expiration Date Visits Re quested Visits Authorized [id number] 1 1 Encounter Details Date Type Department Care Team (Late st Contact Info) Description 02/03/2020 9:30 AM CDT Home Care Visit [facility] [address] [address] [address] [place] [address] Lottie Champion RN SN HOME VISIT Social History Tobacco [...] on file Legal Sex Female 9:03 AM FILM LABORATORY TECHNICIAN Gender Identity Female 02/08/2020 6:39 PM CDT Sexual Orientation Not on file documented as of this encounter Last Filed Vital Signs Vital Sign Reading Time Taken Comments Blood Pressure 154/82 02/03/2020 9:00 AM CDT Pulse 92 02/03/2020 9:00 AM CDT Temperature 36.6 ??C (97.9 ??F) 02/03/2020 9:00 AM CD T Respiratory Rate 18 02/03/2020 9:00 AM CDT Oxygen Saturation 98% 02/03/2020 9:00 AM CDT Inhaled Oxygen Concentration - - Weight - - Height - - Body Mass Index - - documented in this encounter Plan of Treatment Upcoming Encounters Date Type Department Care Team (Latest Contact Info) Description 07/13/2024 9:00 AM FILM LABORATORY TECHNICIAN Hospital Encounter [facility] [address] [place] [address] Jaya Grier MD [facility] [facility] [address] GAINES [address] [place] [address] 07/13/2024 9:00 AM FILM LABORATORY TECHNICIAN - 07/13/2024 9:30 AM FILM LABORATORY TECHNICIAN Surgery [facility] [address] [place] [address] Jaya Grier MD [facility] [facility] [address] GA[address] [place] [address] ESOPHAGOGASTRODUODENOSCOPY Scheduled Procedures Name Priority Associated Diagnoses Date/Ti wy ESOPHAGOGASTRODUODENOSCOPY Anemia, unspecified type Gastritis without bleeding, unspecified chronicity, unspecified gastritis type 07/13/2024 9:00 AM FILM LABORATORY TECHNICIAN COLONOSCOPY Iron deficiency anemia due to chronic blood loss documented as of this encounter Visit Diagnoses Not on filedocumented in this encounter Additional Health Concerns Infection Onset Date Last Indicated Resolved Time MRSA 01/06/2020 01/06/2020 02/06/2021 5:00 AM CDT documented as of this encounter Home Health Visit - Care Plan Visit Details Visit Type -SN Home Visit Discipline -[facility] Problems Problem Description Start Date Status Goals Interve ntions Homebound Status Disciplines: [facility] Patient's homebound status 10/23/2019 Active 1 goal linked to scheduled/documen bruno intervention 1 goal intervention scheduled/document ed in this visit Monitor patient's vital signs every home health visit Disciplines: [facility] Monitor patient's vital signs every home health visit. 10/23/2019 Active 1 goal linked to scheduled/documen bruno intervention 1 goal intervention scheduled/document ed in this visit [place] Precautions Disciplines: [facility] [place] Precautions 10/23/2019 Active 1 goal linked to scheduled/documen bruno intervention 1 goal intervention scheduled/document ed in this visit Wound Risk of Infection Disciplines: [facility] Risk of infections related to wounds 10/23/2019 Active 1 goal linked to scheduled/documen bruno intervention 1 goal intervention scheduled/document ed in this visit Wound Care Disciplines: [facility] Wound care needed 10/23/2019 Resolved on 02/03/2020 - 1 problem intervention scheduled/document ed in this visit Learning/Teac jasiel Needs - Diabetes Disciplines: [facility] Learning and teaching needs associated with diagnosis 10/23/2019 Active 1 goal linked to scheduled/documen bruno intervention 1 goal intervention scheduled/document ed in this visit Collect Specimen/Lab Draw Disciplines: [facility] Need to collect specimen sample 01/12/2020 Active - 1 problem intervention scheduled/document ed in this visit IV Therapy-Manag ement, Education, and Maintenance Disciplines: [facility] Teaching and learning needs for performing home [...] visit during episode of care Description: Home telephoto engineer to measure vital signs during every home health visit during episode of care. Monitor patient's vital signs every home health visit No Demonstrate knowledge of universal precautions Description: Demonstrate knowledge of universal precautions [place] Precautions No Knowledgeable of infection Description: : Patient will remain free of infection and able to recognizes of signs of infection Wound Risk of Infection No Demonstrate adequate knowledge of Diabetes Description: [...] health visit during episode of care Scheduled Aspects of Care Description: Instruct patient/caregiver on universal precautions and home infection control measures Problem:[place] Precautions Goal:Demonstrate knowledge of universal precautions Instruct patient/caregiver on universal precautions and home infection control measures Instruct Hand Washing Description: Instruct patient/caregiver on hand wash technique Problem:Wound Risk of Infection Goal:Knowledgeable of infection Completed Instruct patient/caregiver on hand wash technique Wound care Description: SN/CG to perform wound care on Right 4th toe site every other day and prn for drainage. Cleanse with wound cleanser, apply iodoflex, mepilex transfer, cover with 4x4's, wrap with conform and coban to secure. Written discharge orders. Problem:Wound Care Completed SN/CG to perform wound care on Right 4th toe site every other day and prn for drainage. Cleanse with wound cleanser, apply iodoflex, mepilex transfer, cover with 4x4's, wrap with conform and coban to secure. Blood glucose monitoring Description: Patient/caregiver to perform blood sugar testing and record in log. Frequency of testing bid and prn for feelings of hypo or hyperglycemia Problem:Learning/Teac jasiel Needs - Diabetes Goal:Demonstrate adequate knowledge of Diabetes Completed Patient/caregiver to perform blood sugar testing and record in log. Frequency of testing bid and prn for feelings of hypo or hyperglycemia Lab draw Description: First lab draw to be done on 01/13/20. Obtain Vanco trough and BMP before third dose on 01/13/20. Then obtain CMP, CBC, ESR and Vanco Trough every Thursday and Vanco trough and BMP every . Start Thursday/ labs week of 01/16/20 Written order:Brigid Sheffield/ Dr Gallo Problem:Collect Specimen/Lab Draw Completed First lab draw to be done on 01/13/20. Obtain Vanco trough and BMP before third dose on 01/13/20. Then obtain CMP, CBC, ESR and Vanco Trough every Thursday and Vanco trough and BMP every . Start Thursday/ week of 01/16/20 Midline Description: Skilled Nurse to instruct patient/caregiver [...] PICC Problem:IV Therapy-Management, Education, and Maintenance Completed Skilled Nurse to instruct patient/caregiver on dressing change frequency. Central venous line dressing to be changed 48 hours if there is gauze under the occlusive dressing, dressing is soiled or non-occlusive. documented in this encounter Care Teams Heating Unit Installer Relationship Specialty Start Date End Date Cherelle Corcoran MD PCP - General Family Medicine 08/30/19 Mark Gallo MD Consulting Physician Infectious Diseases 01/10/20 documented as of this encounter
--- OUTSIDE RECORDS SUMMARY | 2024-07-04 04:22 | XMS_ITS | Encounter Summary ---
Author Organization [facility] Medical Group Address [address] [place] [address] Care Team Providers Care Powerhouse Mechanic Supervisor Name Role Phone Cherelle Corcoran MD Primary Care Pro vider Mark Queen MD Unavailable [phone] Reason for Visit * Reason Onset Date Comments FMLA Paperwork 01/23/2020 Encounter Details Date Type Department Care Team ([facility] st Contact Info) Description 01/23/[address] [facility] Primary Care [address] [facility] [facility] [address] [place] [address] Cherelle Corcoran MD [address] [place] [address] [address] [place] [address] FMLA Paperwork Social History Tobacco Use Types Packs/Day Years Used Date Smoking Tobacco: Never Smokeless Tobacco: Never Alcohol Use Standard Drinks/Week Comments Not Currently 0 (1 standard drink = 0.6 oz pur e alcohol) PHQ-2 Answer Date Recorded PHQ-2 Total Score 0 01/17/2020 Comments No Sex and Gender Information Value Date Recorded Sex Assigned at Not on file Legal Sex Female 9:03 AM FIRST LINE PRODUCTION SUPERVISOR Gender Identity Female 02/08/2020 6:39 PM CDT Sexual Orientation Not on file documented as of this encounter Miscellaneous Notes * Telephone Encounter - Natacha London MA - 01/23/2020 4:08 PM CDT LMOR * Telephone Encounter - Shelly Gilman - 01/23/2020 2:16 PM CDT Tahmina from [facility] has questions regarding pt's FMLA paperwork. Please call back. CB# [phone] documented in this encounter Plan of Treatment Upcoming Encounters Date Type Department Care Team (Latest Contact Info) Description 07/13/2024 9:00 AM FIRST LINE PRODUCTION SUPERVISOR Hospital Encounter [facility] [address] [place] [address] Jaya Grier MD [address] [place] [address] [address] GA[address] [place] [address] 07/13/2024 9:00 AM FIRST LINE PRODUCTION SUPERVISOR - 07/13/2024 9:30 AM FIRST LINE PRODUCTION SUPERVISOR Surgery [facility] [address] [place] [address] Jaya G[address] MD [facility] [address] GA[address] [place] [address] ESOPHAGOGASTRODUODENOSCOPY Scheduled Procedures Name Priority Associated Diagnoses Date/Ti nv ESOPHAGOGASTRODUODENOSCOPY Anemia, unspecified type Gastritis without bleeding, unspecified chronicity, unspecified gastritis type 07/13/2024 9:00 AM FIRST LINE PRODUCTION SUPERVISOR COLONOSCOPY Iron deficiency anemia due to chronic blood loss documented as of this encounter Visit Diagnoses Not on filedocumented in this encounter Additional Health Concerns Infection Onset Date Last Indicated Resolved Time MRSA 01/06/2020 01/06/2020 02/06/2021 5:00 AM CDT documented as of this encounter Care Teams Powerhouse Mechanic Supervisor Relationship Specialty Start Date End Date Cherelle Corcoran MD PCP - General Family Medicine 08/30/19 Mark Queen MD Consulting Physician Infectious Diseases 01/10/20 documented as of this encounter
--- OUTSIDE RECORDS SUMMARY | 2024-07-04 04:22 | XMS_ITS | Encounter Summary ---
Author Organization [facility] Healthcare Address [address] [place] [address] Care Team Providers Care Plate Mill Hand Name Role Phone Cherelle Corcoran MD Primary Care Pro vider Mark Queen MD Unavailable [phone] Encounter Details Date Type Department Care Team (Late st Contact Info) Description 01/31/2020 7:00 PM CDT Lab [address] [address] Social History Tobacco Use Types Packs/Day Years Used Date Smoking Tobacco: Never Smokeless Tobacco: Never Alcohol Use Standard Drinks/Week Comments Not Currently 0 (1 standard drink = 0.6 oz pur e alcohol) PHQ-2 Answer Date Recorded PHQ-2 Total Score 0 01/17/2020 Comments No Sex and Gender Information Value Date Recorded Sex Assigned at Not on file Legal Sex Female 9:03 AM RISK INTERN Gender Identity Female 02/08/2020 6:39 PM CDT Sexual Orientation Not on file documented as of this encounter Plan of Treatment Upcoming Encounters Date Type Department Care Team (Latest Contact Info) Description 07/13/2024 9:00 AM RISK INTERN Hospital Encounter [facility] [address] [place] [address] Jaya Grier MD [address] [address] 07/13/2024 9:00 AM RISK INTERN - 07/13/2024 9:30 AM RISK INTERN Surgery [facility] [address] [place] [address] Jaya Grier MD [address] [facility] [address] [place] [address] ESOPHAGOGASTRODUODENOSCOPY Scheduled Procedures Name Priority Associated Diagnoses Date/Ti me ESOPHAGOGASTRODUODENOSCOPY Anemia, unspecified type Gastritis without bleeding, unspecified chronicity, unspecified gastritis type 07/13/2024 9:00 AM RISK INTERN COLONOSCOPY Iron deficiency anemia due to chronic blood loss documented as of this encounter Procedures Procedure Name Priority Date/Time Associated Diagnosis Comments VANCOMYCIN LEVEL RANDOM STAT 01/31/2020 1:30 PM CDT BASIC METABOLIC PANEL STAT 01/31/2020 1:30 PM CDT documented in this encounter Results * Vancomycin, random (01/31/2020 1:30 PM CDT) Pathologist [facility] Vancomycin random 18.0 mcg/mL [facility] Blood specimen (specimen) 01/31/2020 1:30 PM CDT 01/31/2020 6:56 PM CDT us Mark Queen MD LAB BLOOD ORDERABLES Final Result [facility] Department [place] [address] * (ABNORMAL) Basic metabolic panel (01/31/2020 1:30 PM CDT) Pathologist [facility] Sodium 142 135 - 145 mmol/L [facility] Potassium, pl 4.3 3.3 - 4.9 mmol/L [facility] Chloride 102 97 - 110 mmol/L [facility] CO2 29 22 - 32 mmol/L [facility] Anion gap 11 2 - 15 mmol/L [facility] BUN 21 8 - 25 mg/dL [facility] Creatinine 1.35(H) 0.60 - 1.10 mg/dL [facility] Glucose 228(H) 70 - 199 mg/dL [facility] Comment: Interpretive Data Fasting glucose >/= [...] interpretive data was last revised 2017. Calcium 8.9 8.5 - 10.3 mg/dL [facility] Blood specimen (specimen) 01/31/2020 1:30 PM CDT 01/31/2020 6:56 PM CDT us Mark Queen MD LAB BLOOD ORDERABLES Final Result [facility] Department [place] [address] documented in this encounter Visit Diagnoses Not on filedocumented in this encounter Additional Health Concerns Infection Onset Date Last Indicated Resolved Time MRSA 01/06/2020 01/06/2020 02/06/2021 5:00 AM CDT documented as of this encounter Care Teams Plate Mill Hand Relationship Specialty Start Date End Date Cherelle Corcoran MD PCP - General Family Medicine 08/30/19 Mark Queen MD Consulting Physician Infectious Diseases 01/10/20 documented as of this encounter
--- OUTSIDE RECORDS SUMMARY | 2024-07-04 04:22 | XMS_ITS | Encounter Summary ---
Author Organization [facility] Home Care Servic es Address [address] [place] [address] Phone Care Team Providers Care Telesales Agent Name Role Phone Cherelle Corcoran MD Primary Care Pro vider Mark Gallo MD Unavailable [phone]- [phone] Reason for Visit * Auth/Cert Specialty Diagnoses / Procedures Referred By Maryse t Referred To Contact Referral ID Status Reason Start Date Expiration Date Visits Re quested Visits Authorized [id number] 1 1 Encounter Details Date Type Department Care Team (Late st Contact Info) Description 01/28/2020 9:00 AM CDT Home Care Visit [facility] [address] [address] [address] [place] [address] Brigid Keenan RN SN HOME VISIT Social [...] file Legal Sex Female 9:03 AM ASSOCIATE BUYER Gender Identity Female 02/08/2020 6:39 PM CDT Sexual Orientation Not on file documented as of this encounter Last Filed Vital Signs Vital Sign Reading Time Taken Comments Blood Pressure 150/80 01/28/2020 9:00 AM CDT Pulse 84 01/28/2020 9:00 AM CDT Temperature 35.9 ??C (96.7 ??F) 01/28/2020 9:00 AM CD T Respiratory Rate 18 01/28/2020 9:00 AM CDT Oxygen Saturation 94% 01/28/2020 9:00 AM CDT Inhaled Oxygen Concentration - - Weight - - Height - - Body Mass Index - - documented in this encounter Plan of Treatment Upcoming Encounters Date Type Department Care Team (Latest Contact Info) Description 07/13/2024 9:00 AM ASSOCIATE BUYER Hospital Encounter [facility] [address] [place] [address] Jaya Grier MD [address] [place] [address] DR GAINES [address] [place] [address] 07/13/2024 9:00 AM ASSOCIATE BUYER - 07/13/2024 9:30 AM ASSOCIATE BUYER Surgery [facility] [address] [place] [address] Jaya Grier MD [facility] [address] GA[address] [place] [address] ESOPHAGOGASTRODUODENOSCOPY Scheduled Procedures Name Priority Associated Diagnoses Date/Ti ak ESOPHAGOGASTRODUODENOSCOPY Anemia, unspecified type Gastritis without bleeding, unspecified chronicity, unspecified gastritis type 07/13/2024 9:00 AM ASSOCIATE BUYER COLONOSCOPY Iron deficiency anemia due to chronic blood loss documented as of this encounter Visit Diagnoses Not on filedocumented in this encounter Additional Health Concerns Infection Onset Date Last Indicated Resolved Time MRSA 01/06/2020 01/06/2020 02/06/2021 5:00 AM CDT documented as of this encounter Home Health Visit - Care Plan Visit Details Visit Type -SN Home Visit Discipline -Half-Way Problems Problem Description Start Date Status Goals Interve ntions Homebound Status Disciplines: Half-Way Patient's homebound status 10/23/2019 Active 1 goal linked to scheduled/documen bruno intervention 1 goal intervention scheduled/document ed in this visit Medications Disciplines: Half-Way Management of home medications 10/23/2019 Active 1 goal linked to scheduled/documen bruno intervention 1 goal intervention scheduled/document ed in this visit Monitor patient's vital signs every home health visit Disciplines: Half-Way Monitor patient's vital signs every home health visit. 10/23/2019 Active 1 goal linked to scheduled/documen bruno intervention 1 goal intervention scheduled/document ed in this visit Infection Prevention Disciplines: Half-Way Infection Prevention 10/23/2019 Active 1 goal linked to scheduled/documen bruno intervention 1 goal intervention scheduled/document ed in this visit Wound Care Disciplines: Half-Way Wound care needed 10/23/2019 Active - 1 problem intervention scheduled/document ed in this visit Collect Specimen/Lab Draw Disciplines: Half-Way Need to collect specimen sample 01/12/2020 Active [...] visit during episode of care Description: Home coating machine helper to measure vital signs during every home health visit during episode of care. Monitor patient's vital signs every home health visit No Verbalize signs of infection Description: Verbalize signs of infection Infection Prevention No Interventions Intervention Associated Problem/Goal Status Variance Visit Notes Homebound Status Description: Patient is homebound due to unsteady gait, diabetis, neuropathy, risk for falls, open wound Problem:Homebound Status Goal:Patient recieves care at the most appropriate care setting Completed Patient is homebound due to unsteady gait, diabetis, neuropathy, risk for falls, open wound Instruct on Medication Management Description: Instruct patient/caregiver in medication administration, purpose, dosages, preparation, scheduling, side effects, food/drug interactions, storage, drug allergies, and potential complications. Problem:Medications Goal:Understand and follow medication therapy Completed New Vanco dose instructed. Daughter verbalizes understanding. Monitor Vital Signs Description: Monitor blood pressure, [...] Prevention Goal:Verbalize signs of infection Completed Daughter verbalizes understanding. Wound care Description: SN/CG to perform wound care on Right 4th toe site every other day and prn for drainage. Cleanse with wound cleanser, apply iodoflex, mepilex transfer, cover with 4x4's, wrap with conform and coban to secure. Written discharge orders. Problem:Wound Care Completed Wound care provided this visit. Patient tolerated well. Collect Specimen/Lab Draw Description: Obtain Vanco trough on 01/28/20 via PICC line and fax to [facility]. Written order: [facility]/Dr Gallo Problem:Collect Specimen/Lab Draw Completed Drawn this visit. Patient tolerated well. documented in this encounter Care Teams Telesales Agent Relationship Specialty Start Date End Date Cherelle Corcoran MD PCP - General Family Medicine 08/30/19 Mark Gallo MD Consulting Physician Infectious Diseases 01/10/20 documented as of this encounter
--- OUTSIDE RECORDS SUMMARY | 2024-07-04 04:22 | XMS_ITS | Encounter Summary ---
Author Organization [facility] Address [address] [place] [address] Care Team Providers Care Slip Laster Name Role Phone Cherelle Corcoran MD Primary Care Pro vider Mark Queen MD Unavailable [phone] Encounter Details Date Type Department Care Team (Late st Contact Info) Description 01/16/2020 Telephone [facility] Vascular and Vein Surgery [address] [place] [address] Guy Walsh MD [address] [facility] [address] [place], [place] [id number] Social History Tobacco Use Types Packs/Day Years Used Date Smoking Tobacco: Never Smokeless Tobacco: Never Alcohol Use Standard Drinks/Week Comments Not Currently 0 (1 standard drink = 0.6 oz pur e alcohol) PHQ-2 Answer Date Recorded PHQ-2 Total Score 0 01/17/2020 Comments No Sex and Gender Information Value Date Recorded Sex Assigned at Not on file Legal Sex Female 9:03 AM TOOL AND DIE MAKER/DESIGNER Gender Identity Female 02/08/2020 6:39 PM CDT Sexual Orientation Not on file documented as of this encounter Miscellaneous Notes * Telephone Encounter - Becky Kang MA - 01/16/2020 9:36 AM CDT Fior from [facility] home care called. 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 She states the area looks macerated and soft. As opposed to the last time she was at the patient's house. The patient is also currently on IV Vanc and will hold of the transfusion until after the patient is seen. I made the patient an acute appointment for 01/17/20. Patient has been made aware. documented in this encounter Plan of Treatment Upcoming Encounters Date Type Department Care Team (Latest Contact Info) Description 07/13/2024 9:00 AM TOOL AND DIE MAKER/DESIGNER Hospital Encounter [facility] GI [facility] [address] [place] [address] Jaya Grier MD [address] [place] [address] [address] GAINES [address] [place] [address] 07/13/2024 9:00 AM TOOL AND DIE MAKER/DESIGNER - 07/13/2024 9:30 AM TOOL AND DIE MAKER/DESIGNER Surgery [facility] [address] [place] [address] Jaya Grier MD [address] [place] [address] DR GAINES [address] [place] [address] ESOPHAGOGASTRODUODENOSCOPY Scheduled Procedures Name Priority Associated Diagnoses Date/Ti md ESOPHAGOGASTRODUODENOSCOPY Anemia, unspecified type Gastritis without bleeding, unspecified chronicity, unspecified gastritis type 07/13/2024 9:00 AM TOOL AND DIE MAKER/DESIGNER COLONOSCOPY Iron deficiency anemia due to chronic blood loss documented as of this encounter Visit Diagnoses Not on filedocumented in this encounter Additional Health Concerns Infection Onset Date Last Indicated Resolved Time MRSA 01/06/2020 01/06/2020 02/06/2021 5:00 AM CDT documented as of this encounter Care Teams Slip Laster Relationship Specialty Start Date End Date Cherelle Corcoran MD PCP - General Family Medicine 08/30/19 Mark Queen MD Consulting Physician Infectious Diseases 01/10/20 documented as of this encounter
--- OUTSIDE RECORDS SUMMARY | 2024-07-04 04:22 | XMS_ITS | Encounter Summary ---
Author Organization [facility] Home Care Servic es Address [address] [place] [address] Phone Care Team Providers Care Culture Room Worker Name Role Phone Cherelle Corcoran MD Primary Care Pro vider Mark Queen MD Unavailable [phone] Reason for Visit * Auth/Cert Specialty Diagnoses / Procedures Referred By Maryse t Referred To Contact Referral ID Status Reason Start Date Expiration Date Visits Re quested Visits Authorized [id number] 1 1 Encounter Details Date Type Department Care Team (Late st Contact Info) Description 01/25/2020 Home Care Visit [facility] Home Health - [address] [address] [address] [place] [address] Tena Dick, RN TELEPHONE ENCOUNTER Social History Tobacco Use [...] on file Legal Sex Female 9:03 AM BRICKLAYER'S ASSISTANT Gender Identity Female 02/08/2020 6:39 PM CDT Sexual Orientation Not on file documented as of this encounter Plan of Treatment Upcoming Encounters Date Type Department Care Team (Latest Contact Info) Description 07/13/2024 9:00 AM BRICKLAYER'S ASSISTANT Hospital Encounter [facility] [address] [place] [address] Jaya Grier MD [address] [place] [address] 07/13/2024 9:00 AM BRICKLAYER'S ASSISTANT - 07/13/2024 9:30 AM BRICKLAYER'S ASSISTANT Surgery [facility] [address] [place] [address] Jaya Grier MD [address] [place] [address] ESOPHAGOGASTRODUODENOSCOPY Scheduled Procedures Name Priority Associated Diagnoses Date/Ti me ESOPHAGOGASTRODUODENOSCOPY Anemia, unspecified type Gastritis without bleeding, unspecified chronicity, unspecified gastritis type 07/13/2024 9:00 AM BRICKLAYER'S ASSISTANT COLONOSCOPY Iron deficiency anemia due to chronic blood loss documented as of this encounter Visit Diagnoses Not on filedocumented in this encounter Additional Health Concerns Infection Onset Date Last Indicated Resolved Time MRSA 01/06/2020 01/06/2020 02/06/2021 5:00 AM CDT documented as of this encounter Care Teams Culture Room Worker Relationship Specialty Start Date End Date Cherelle Corcoran MD PCP - General Family Medicine 08/30/19 Mark Queen MD Consulting Physician Infectious Diseases 01/10/20 documented as of this encounter
--- OUTSIDE RECORDS SUMMARY | 2024-07-04 04:22 | XMS_ITS | Encounter Summary ---
Author Organization [facility] Healthcare Address [address] [place] [address] Care Team Providers Care Public Health Veterinarian Name Role Phone Cherelle Corcoran MD Primary Care Pro vider Mark Queen MD Unavailable [phone] Encounter Details Date Type Department Care Team (Late st Contact Info) Description 01/19/2020 1:30 PM CDT Lab [facility] [address] [place] [address] Social History Tobacco Use Types Packs/Day Years Used Date Smoking Tobacco: Never Smokeless Tobacco: Never Alcohol Use Standard Drinks/Week Comments Not Currently 0 (1 standard drink = 0.6 oz pur e alcohol) PHQ-2 Answer Date Recorded PHQ-2 Total Score 0 01/17/2020 Comments No Sex and Gender Information Value Date Recorded Sex Assigned at Not on file Legal Sex Female 9:03 AM DIRECTOR OF PARTNERSHIPS Gender Identity Female 02/08/2020 6:39 PM CDT Sexual Orientation Not on file documented as of this encounter Plan of Treatment Upcoming Encounters Date Type Department Care Team (Latest Contact Info) Description 07/13/2024 9:00 AM DIRECTOR OF PARTNERSHIPS Hospital Encounter [facility] [address] [place] [address] Jaya Grier MD [address] [address] 07/13/2024 9:00 AM DIRECTOR OF PARTNERSHIPS - 07/13/2024 9:30 AM DIRECTOR OF PARTNERSHIPS Surgery [facility] [address] [place] [address] Jaya Grier MD [address] [facility] [address] [place] [address] ESOPHAGOGASTRODUODENOSCOPY Scheduled Procedures Name Priority Associated Diagnoses Date/Ti me ESOPHAGOGASTRODUODENOSCOPY Anemia, unspecified type Gastritis without bleeding, unspecified chronicity, unspecified gastritis type 07/13/2024 9:00 AM DIRECTOR OF PARTNERSHIPS COLONOSCOPY Iron deficiency anemia due to chronic blood loss documented as of this encounter Procedures Procedure Name Priority Date/Time Associated Diagnosis Comments EGFR Routine 01/19/2020 9:00 AM CDT VANCOMYCIN LEVEL TROUGH Routine 01/19/2020 9:00 AM CDT COMPREHENSIVE METABOLIC PANEL Routine 01/19/2020 9:00 AM CDT documented in this encounter Results * eGFR (01/19/2020 9:00 AM CDT) eGFR 73 mL/min/1.7 3 m2 [facility] ([place]) Comment: Interpretive Data Reference Interval Normal ?>/= 90 mL/min/1.73m2 Mildly decreased* ? 60 - 89 mL/min/1.73m2 Mildly to moderately decreased ?45 - 59 mL/min/1.73m2 Moderately to severely decreased ??30 - 44 mL/min/1.73m2 Severely decreased ?15 - 29 mL/min/1.73m2 Kidney Failure ?< 15 ??mL/min/1.73m2 *Relative to young adult level If -Taiwanese multiply value by 1.16. Estimated glomerular filtration [...] was last reviewed 2016. Blood specimen (specimen) 01/19/2020 9:00 AM CDT 01/19/2020 1:03 PM CDT us Mark Queen MD LAB BLOOD ORDERABLES Final Result [facility] ([place]) 1 [facility] [place] [address] * Vancomycin, trough (01/19/2020 9:00 AM CDT) Vancomycin trough 17.7 15.0 - 20.0 mcg/mL [facility] ([place]) Comment: Intepretive Data Therapeutic range: ??15 - 20 mcg/ml Current interpretive data was last revised on 2014 Blood specimen (specimen) 01/19/2020 9:00 AM CDT 01/19/2020 1:02 PM CDT us Mark Queen MD LAB BLOOD ORDERABLES Final Result [facility] ([place]) 1 [facility] [place] [address] * (ABNORMAL) Comprehensive metabolic panel (01/19/2020 9:00 AM CDT) Sodium 142 135 - 145 mmol/L [facility] ([place]) Potassium, pl 3.6 3.3 - 4.9 mmol/L [facility] ([place]) Chloride 103 97 - 110 mmol/L [facility] ([place]) CO2 26 22 - 32 mmol/L [facility] ([place]) Anion gap 14 2 - 15 mmol/L [facility] ([place]) BUN 14 8 - 25 mg/dL [facility] ([place]) Creatinine 0.82 0.60 - 1.10 mg/dL [facility] ([place]) Glucose 107 70 - 199 mg/dL [facility] ([place]) [...] 10.3 mg/dL [facility] ([place]) Bilirubin, total 0.2 0.1 - 1.2 mg/dL [facility] ([place]) Protein, pl 8.0 6.5 - 8.5 g/dL [facility] ([place]) Albumin 2.9(L) 3.5 - 5.0 g/dL [facility] ([place]) Alk phos 282(H) 40 - 130 Units/L [facility] ([place]) ALT 32 7 - 45 Units/L [facility] ([place]) AST 39 10 - 45 Units/L [facility] ([place]) Blood specimen (specimen) 01/19/2020 9:00 AM CDT 01/19/2020 1:02 PM CDT us Mark Queen MD LAB BLOOD ORDERABLES Final Result [facility] ([place]) 1 [facility] [place] [address] documented in this encounter Visit Diagnoses Not on filedocumented in this encounter Additional Health Concerns Infection Onset Date Last Indicated Resolved Time MRSA 01/06/2020 01/06/2020 02/06/2021 5:00 AM CDT documented as of this encounter Care Teams Public Health Veterinarian Relationship Specialty Start Date End Date Cherelle Corcoran MD PCP - General Family Medicine 08/30/19 Mark Queen MD Consulting Physician Infectious Diseases 01/10/20 documented as of this encounter
--- OUTSIDE RECORDS SUMMARY | 2024-07-04 04:22 | XMS_ITS | Encounter Summary ---
Author Organization [facility] Home Care Serv[facility] es Address [address] [place] [address] Phone Care Team Providers Care R Developer Name Role Phone Cherelle Corcoran MD Primary Care Pro vider Mark Queen MD Unavailable [phone] Reason for Visit * Auth/Cert Specialty Diagnoses / Procedures Referred By Maryse t Referred To Contact Referral ID Status Reason Start Date Expiration Date Visits Re quested Visits Authorized [id number] 1 1 Encounter Details Date Type Department Care Team (Late st Contact Info) Description 01/23/2020 Home Care Visit [facility] Home Health - [address] [address] [address] [place] [address] Brigid Keenan, DRAWBENCH OPERATOR HELPER SCREENING CASE COMMUNICATION Social History Tobacco Use [...] on file Legal Sex Female 9:03 AM PANTRY STEWARD/STEWARDESS Gender Identity Female 02/08/2020 6:39 PM CDT Sexual Orientation Not on file documented as of this encounter Plan of Treatment Upcoming Encounters Date Type Department Care Team (Latest Contact Info) Description 07/13/2024 9:00 AM PANTRY STEWARD/STEWARDESS Hospital Encounter [facility] GI Lab [address] [place] [address] Jaya Grier MD [address] [address] [place] [address] 07/13/2024 9:00 AM PANTRY STEWARD/STEWARDESS - 07/13/2024 9:30 AM PANTRY STEWARD/STEWARDESS Surgery [facility] [address] [place] [address] Jaya Grier MD [facility] [facility] [address] [place] [address] ESOPHAGOGASTRODUODENOSCOPY Scheduled Procedures Name Priority Associated Diagnoses Date/Ti me ESOPHAGOGASTRODUODENOSCOPY Anemia, unspecified type Gastritis without bleeding, unspecified chronicity, unspecified gastritis type 07/13/2024 9:00 AM PANTRY STEWARD/STEWARDESS COLONOSCOPY Iron deficiency anemia due to chronic blood loss documented as of this encounter Visit Diagnoses Not on filedocumented in this encounter Additional Health Concerns Infection Onset Date Last Indicated Resolved Time MRSA 01/06/2020 01/06/2020 02/06/2021 5:00 AM CDT documented as of this encounter Care Teams R Developer Relationship Specialty Start Date End Date Cherelle Corcoran MD PCP - General Family Medicine 08/30/19 Mark Queen MD Consulting Physician Infectious Diseases 01/10/20 documented as of this encounter
--- OUTSIDE RECORDS SUMMARY | 2024-07-04 04:22 | XMS_ITS | Encounter Summary ---
Author Organization [facility] Healthcare Address [address] [place] [address] Care Team Providers Care Bioinformatics Research Technician Name Role Phone Cherelle Corcoran MD Primary Care Pro vider Mark Queen MD Unavailable [phone] Encounter Details Date Type Department Care Team (Latest Contact Info) Description 01/26/2020 3:57 PM CDT - 01/26/2020 11:59 PM CDT Hospital Encounter [facility] [address] [place] [address] Anat Pelayo, [address] [address] Discharge Disposition: Discharge to home or self [...] on file Legal Sex Female 9:03 AM OFFICER CAPTAIN Gender Identity Female 02/08/2020 6:39 PM [...] 21 pen needle, diabetic 32 gauge x /16 needleIndications: Uncontrolled type 2 diabetes mellitus with hyperglycemia (HCC) Use to inject basaglar nightly 100 each 1 01/17/2020 06/25/19 22 syringe with needle, insulin (INSULIN SYRINGE-NEEDLE U-100 MISC) 3 times a day 09/12/2017 12/01/19 23 vancomycin (VANCOCIN) 1,000 mg injection 01/17/2020 02/14/20 20 vancomycin (VANCOCIN) 5 gram injection Infuse 1,500 mg into a venous catheter daily Infuse 1500 mg (2x 750mg/30ml SWI syringes) q 24hr via [id number] pump 6000 mg 3 01/24/2020 01/30/20 20 Victoza 2-Vivek 0.6 mg/0.1 mL (18 [...] (Latest Contact Info) Description 07/13/2024 9:00 AM OFFICER CAPTAIN Hospital Encounter [facility] GI Lab [address] [place] [address] Jaya Grier MD [address] [place] [address] [address] [place] [address] 07/13/2024 9:00 AM OFFICER CAPTAIN - 07/13/2024 9:30 AM OFFICER CAPTAIN Surgery [facility] Lab [address] [place] [address] Jaya Grier MD [address] [place] [address] [address] GA[address] [place] [address] ESOPHAGOGASTRODUODENOSCOPY Scheduled Procedures Name Priority Associated Diagnoses Date/Ti in ESOPHAGOGASTRODUODENOSCOPY Anemia, unspecified type Gastritis without bleeding, unspecified chronicity, unspecified gastritis type 07/13/2024 9:00 AM OFFICER CAPTAIN COLONOSCOPY Iron deficiency anemia due to chronic blood loss documented as of this encounter Visit Diagnoses Not on filedocumented in this encounter Additional Health Concerns Infection Onset Date Last Indicated Resolved Time MRSA 01/06/2020 01/06/2020 02/06/2021 5:00 AM CDT documented as of this encounter Care Teams Bioinformatics Research Technician Relationship Specialty Start Date End Date Cherelle Corcoran MD PCP - General Family Medicine 08/30/19 Mark Queen MD Consulting Physician Infectious Diseases 01/10/20 documented as of this encounter
--- OUTSIDE RECORDS SUMMARY | 2024-07-04 04:22 | XMS_ITS | Encounter Summary ---
Author Organization [facility] Address [address] [place] [address] Phone Care Team Providers Care Carpenter Foreman Name Role Phone Cherelle Corcoran MD Primary Care Pro vider Mark Queen MD Unavailable [phone]- [phone] Reason for Visit * Auth/Cert Specialty Diagnoses / Procedures Referred By Maryse lama Referred To Contact Referral ID Status Reason Start Date Expiration Date Visits Re quested Visits Authorized [id number] 1 1 Encounter Details Date Type Department Care Team (Late st Contact Info) Description 01/21/2020 3:00 PM CDT Home Care Visit [facility] [address] [address] [address] [place] [address] Diane Calderón RN SN HOME VISIT Social History Tobacco [...] file Legal Sex Female 9:03 AM PRODUCTION CONTROL EXPERT Gender Identity Female 02/08/2020 6:39 PM CDT Sexual Orientation Not on file documented as of this encounter Last Filed Vital Signs Vital Sign Reading Time Taken Comments Blood Pressure 118/79 01/21/2020 3:34 PM CDT Pulse 88 01/21/2020 3:34 PM CDT Temperature 37.2 ??C (98.9 ??F) 01/21/2020 3:34 PM CD T Respiratory Rate 16 01/21/2020 3:34 PM CDT Oxygen Saturation 93% 01/21/2020 3:34 PM CDT Inhaled Oxygen Concentration - - Weight - - Height - - Body Mass Index - - documented in this encounter Plan of Treatment Upcoming Encounters Date Type Department Care Team (Latest Contact Info) Description 07/13/2024 9:00 AM PRODUCTION CONTROL EXPERT Hospital Encounter [facility] [address] [place] [address] Jaya Grier MD [facility] [address] [place] [address] 07/13/2024 9:00 AM PRODUCTION CONTROL EXPERT - 07/13/2024 9:30 AM PRODUCTION CONTROL EXPERT Surgery [facility] [address] [place] [address] Jaya Grier MD [facility] [address] [place] [address] ESOPHAGOGASTRODUODENOSCOPY Scheduled Procedures Name Priority Associated Diagnoses Date/Ti md ESOPHAGOGASTRODUODENOSCOPY Anemia, unspecified type Gastritis without bleeding, unspecified chronicity, unspecified gastritis type 07/13/2024 9:00 AM PRODUCTION CONTROL EXPERT COLONOSCOPY Iron deficiency anemia due to chronic blood loss documented as of this encounter Visit Diagnoses Not on filedocumented in this encounter Additional Health Concerns Infection Onset Date Last Indicated Resolved Time MRSA 01/06/2020 01/06/2020 02/06/2021 5:00 AM CDT documented as of this encounter Home Health Visit - Care Plan Visit Details Visit Type -SN Home Visit Discipline -Jail Problems Problem Description Start Date Status Goals Interve ntions Homebound Status Disciplines: Jail Patient's homebound status 10/23/2019 Active 1 goal linked to scheduled/documen bruno intervention 1 goal intervention scheduled/document ed in this visit Monitor patient's vital signs every home health visit Disciplines: Jail Monitor patient's vital signs every home health visit. 10/23/2019 Active 1 goal linked to scheduled/documen bruno intervention 1 goal intervention scheduled/document ed in this visit Infection Prevention Disciplines: Jail Infection Prevention 10/23/2019 Active 1 goal linked to scheduled/documen bruno intervention 1 goal intervention scheduled/document ed in this visit Fall Precautions/Saf ety Concerns Disciplines: Jail Alteration in safety 10/23/2019 Active 1 goal linked to scheduled/documen bruno intervention 1 goal intervention scheduled/document ed in this visit Depression Disciplines: Jail Depression 10/23/2019 Active 1 goal linked to scheduled/documen bruno intervention 1 goal intervention scheduled/document ed in this visit Pain Disciplines: Jail Alteration in comfort 10/23/2019 Active 1 goal linked to scheduled/documen bruno intervention 1 goal intervention scheduled/document ed in this visit Wound Risk of Infection Disciplines: Jail Risk of infections related to wounds 10/23/2019 Active 1 goal linked to scheduled/documen bruno intervention 2 goal interventions scheduled/document ed in this visit Wound Education and Management Disciplines: Jail 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 10/23/2019 Active 1 goal linked to scheduled/documen bruno intervention 1 goal intervention scheduled/document ed in this visit Wound Care Disciplines: Jail Wound care needed 10/23/2019 Active 1 goal linked to scheduled/documen bruno intervention 1 problem intervention scheduled/document ed in this visit 1 goal intervention scheduled/document ed in this visit Disease Management - Diabetes Disciplines: Jail Management of diabetes symptoms 10/23/2019 Active 1 goal linked to scheduled/documen bruno intervention 2 goal interventions scheduled/document ed in this visit Goals Goal Associated Problem Outcome Goal Met? Visit Notes Patient recieves care at the most appropriate care setting Description: Patient receives care at the most appropriate care setting. Homebound Status No Measure vital signs during every home health visit during episode of care Description: Home behavioral health clinician to measure vital signs during every home health visit during episode of care. Monitor patient's vital signs every home health visit No Verbalize signs of infection Description: Verbalize signs of infection Infection Prevention No Demonstrate use of safety precautions Description: Demonstrate use of safety precautions Fall Precautions/Safety Concerns No Demonstrate knowledge of depression Description: Demonstrate knowledge of depression. Depression No Report that pain has been reduced or controlled Description: Report that pain has been reduced or controlled Pain No Knowledgeable of infection Description: : Patient will remain free of infection and able to recognizes of signs of infection Wound Risk of Infection No Knowledgeable on Woundcare Description: Patient/caregiver will be knowledgeable on woundcare procedure, wound healing and when to seek medical attention Wound Education and Management No Progression towards healing Description: Wound show progression towards healing by discharge Wound Care No Verbalize prevention of infection Description: Patient will remain free from infections and verbalize methods to prevent infection and how to perform foot care Disease Management - Diabetes No Interventions Intervention [...] Problem:Infection Prevention Goal:Verbalize signs of infection Completed patient instructed in signs and symptoms of infection IE: fever, odor, change in color, increased amount of drainage, purulent drainage, warmth. patient verbalized good understanding of instruction given [place] Fall Precautions Description: Assess patient safety Problem:Fall Precautions/Safety Concerns Goal:Demonstrate use of safety precautions Completed Assess depression Description: Assess depression. Problem:Depression Goal:Demonstrate knowledge of depression Completed Instruct on pain management techniques Description: Instruct in pharmacologic and nonpharmacologic pain management techniques. Problem:Pain Goal:Report that pain has been reduced or controlled Completed patient instructed in pharmacologic and nonpharmacologic pain management techniq. patient verbalized good understanding of instruction given Instruct Hand Washing Description: Instruct patient/caregiver on hand wash technique Problem:Wound Risk of Infection Goal:Knowledgeable of infection Completed patient instructed in hand wash technique. patient verbalized good understanding of instruction given Instruct patient/family/caregive r on infection control and safe disposal of dressing materials Description: Instruct patient/caregiver on how to recognized signs and symptoms of infection and when to notify CRTS and/or physician per Wound Education Booklet. Instruct patient/caregiver on infection control measures and how to prevent infections Problem:Wound Risk of Infection Goal:Knowledgeable of infection [...] bag, seal, and place in regular trash. Pt. verbalizes understanding. Instruct patient on maintaining adequate nutrition and hydration Description: Instruct patient on maintaining adequate nutrition for wound healing. Instruct pt/cg on eating/offering a balanced diet. Instruct on adequate protein sources per Wound Education Booklet. Consult RD for chronic malnutrition, stage 3 or 4 pressure ulcer. Problem:Wound Education and Management Goal:Knowledgeable on Woundcare Completed patient instructed in maintaining adequate nutrition for wound healing. Instruct pt/cg on eating/offering a balanced diet. Instruct on adequate protein sources. patient verbalized good understanding of instruction given Skilled assessment wound Description: Full wound assessment including measurement weekly. Wound assessment each visit Problem:Wound Care Goal:Progression towards healing Completed Wound care Description: SN/CG to perform wound care on Right 4th toe site every other day and prn for drainage. Cleanse with wound cleanser, apply iodoflex, mepilex transfer, cover with 4x4's, wrap with conform and coban to secure. Written discharge orders. Problem:Wound Care Completed SN/CG performed wound care on Right 4th toe site every other day and prn for drainage. Cleanse with wound cleanser, apply iodoflex, cover with 4x4's, wrap with conform and coban to secure. Assess Diabetes: Knowledge Deficit Description: Assess for knowledge deficit of diabetes management Problem:Disease Management - Diabetes Goal:Verbalize prevention of infection Completed Educate on foot care Description: Educate patient/caregiver on proper foot care. Problem:Disease Management - Diabetes Goal:Verbalize prevention of infection Completed patient instructed in proper foot care. patient verbalized good understanding of instruction given documented in this encounter Home Health Visit - Actions and Narratives Actions sn communicated with case anne-marie acevedo documented in this encounter Care Teams Carpenter Foreman Relationship Specialty Start Date End Date Cherelle Corcoran MD PCP - General Family Medicine 08/30/19 Mark Queen MD Consulting Physician Infectious Diseases 01/10/20 documented as of this encounter
--- OUTSIDE RECORDS SUMMARY | 2024-07-04 04:22 | XMS_ITS | Encounter Summary ---
Author Organization [facility] Address [address] [place] [address] Phone Care Team Providers Care Cell Lead Name Role Phone Cherelle Corcoran MD Primary Care Pro vider Mark Gallo MD Unavailable [phone]- [phone] Reason for Visit * Auth/Cert Specialty Diagnoses / Procedures Referred By Maryse t Referred To Contact Referral ID Status Reason Start Date Expiration Date Visits Re quested Visits Authorized [id number] 1 1 Encounter Details Date Type Department Care Team (Late st Contact Info) Description 01/30/2020 7:00 AM CDT Home Care Visit [facility] [address] [address] [address] [place] [address] Brigid Keenan RN SN HOME VISIT Social [...] on file Legal Sex Female 9:03 AM COLLECTIONS REP Gender Identity Female 02/08/2020 6:39 PM CDT Sexual Orientation Not on file documented as of this encounter Last Filed Vital Signs Vital Sign Reading Time Taken Comments Blood Pressure 140/70 01/30/2020 8:30 AM CDT Pulse 87 01/30/2020 8:30 AM CDT Temperature 35.8 ??C (96.5 ??F) 01/30/2020 8:30 AM CD T Respiratory Rate 18 01/30/2020 8:30 AM CDT Oxygen Saturation 95% 01/30/2020 8:30 AM CDT Inhaled Oxygen Concentration - - Weight - - Height - - Body Mass Index - - documented in this encounter Plan of Treatment Upcoming Encounters Date Type Department Care Team (Latest Contact Info) Description 07/13/2024 9:00 AM COLLECTIONS REP Hospital Encounter [facility] [address] [place] [address] Jaya Grier MD [address] [place] [address] DR GAIN[address] [place] [address] 07/13/2024 9:00 AM COLLECTIONS REP - 07/13/2024 9:30 AM COLLECTIONS REP Surgery [facility] [address] [place] [address] Jaya Grier MD [facility] [address] GAIN[address] [place] [phone] ESOPHAGOGASTRODUODENOSCOPY Scheduled Procedures Name Priority Associated Diagnoses Date/Ti ri ESOPHAGOGASTRODUODENOSCOPY Anemia, unspecified type Gastritis without bleeding, unspecified chronicity, unspecified gastritis type 07/13/2024 9:00 AM COLLECTIONS REP COLONOSCOPY Iron deficiency anemia due to chronic blood loss documented as of this encounter Visit Diagnoses Not on filedocumented in this encounter Additional Health Concerns Infection Onset Date Last Indicated Resolved Time MRSA 01/06/2020 01/06/2020 02/06/2021 5:00 AM CDT documented as of this encounter Home Health Visit - Care Plan Visit Details Visit Type -SN Home Visit Discipline -Mcfp Problems Problem Description Start Date Status Goals Interve ntions Homebound Status Disciplines: Mcfp Patient's homebound status 10/23/2019 Active 1 goal linked to scheduled/documen bruno intervention 1 goal intervention scheduled/document ed in this visit Monitor patient's vital signs every home health visit Disciplines: Mcfp Monitor patient's vital signs every home health visit. 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 10/23/2019 Active 1 goal linked to scheduled/documen bruno intervention 1 goal intervention scheduled/document ed in this visit Wound Care Disciplines: Mcfp Wound care needed 10/23/2019 Active 1 goal linked to scheduled/documen bruno intervention 1 problem intervention scheduled/document ed in this visit 1 goal intervention scheduled/document ed in this visit Collect Specimen/Lab Draw Disciplines: Mcfp Need to collect specimen sample 01/12/2020 Active - 1 problem intervention scheduled/document ed in this visit IV Therapy-Managem ent, Education, and Maintenance Disciplines: Mcfp Teaching and learning needs for performing home [...] during episode of care Description: Home rail loader to measure vital signs during every home [...] towards healing by discharge Wound Care No Interventions Intervention Associated Problem/Goal [...] of infection Completed Patient and daughter verbalize understanding. Demonstration of Wound Care Description: Patient/caregiver will complete a return demonstration on wound care to SN or PT. Observed return wound care on admission Problem:Wound Education and Management Goal:Knowledgeable on Woundcare Completed Daughter able to return demo of wound care Skilled assessment wound Description: Full wound assessment including measurement weekly. Wound assessment each visit Problem:Wound Care Goal:Progression towards healing Completed Measurements taken this visit. Wound care Description: SN/CG to perform wound care on Right 4th toe site every other day and prn for drainage. Cleanse with wound cleanser, apply iodoflex, mepilex transfer, cover with 4x4's, wrap with conform and coban to secure. Written discharge orders. Problem:Wound Care Completed Performed this visit. Patient tolerated well Lab draw Description: First lab draw to [...] Completed Performed this visit. Patient tolerated well documented in this encounter Care Teams Cell Lead Relationship Specialty Start Date End Date Cherelle Corcoran MD PCP - General Family Medicine 08/30/19 Mark Gallo MD Consulting Physician Infectious Diseases 01/10/20 documented as of this encounter
--- OUTSIDE RECORDS SUMMARY | 2024-07-04 04:22 | XMS_ITS | Encounter Summary ---
Author Organization [facility] Address [address] [place] [address] Phone Care Team Providers Care Hosiery Bagger Name Role Phone Cherelle Corcoran MD Primary Care Pro vider Mark Gallo MD Unavailable [phone] Encounter Details Date Type Department Care Team (Late st Contact Info) Description 01/30/2020 Orders Only [facility] [address] [place] [id number] Brigid Sheffield RPh Acute osteomyelitis of toe [...] on file Legal Sex Female 9:03 AM QUAL RESEARCH MANAGER Gender Identity Female 02/08/2020 6:39 PM CDT Sexual Orientation Not on file documented as of this encounter Progress Notes * Brigid Sheffield RPh - 01/30/2020 5:24 PM CDT CHIP/Kristyn Finnegan/Dr Gallo/Brigid Sheffield pharmD Hold vancomycin Check random vancomycin level and BMP daily until level is less than 20 Once level is less than 20 - restart vancomcyin at the following dose - Vancomycin 1gm in Sterile Water 40mL, infuse intravenously over 54 minutes every 24 hours by Clinton 60 pump with F45 tubing. assisted visit daily to draw a random Vancomycin level until the Vancomycin level is less than 20 documented in this encounter Plan of Treatment Upcoming Encounters Date Type Department Care Team (Latest Contact Info) Description 07/13/2024 9:00 AM QUAL RESEARCH MANAGER Hospital Encounter [facility] [address] [place] [address] Jaya Grier MD [address] [place] [address] [address] GA[address] [place] [address] 07/13/2024 9:00 AM QUAL RESEARCH MANAGER - 07/13/2024 9:30 AM QUAL RESEARCH MANAGER Surgery [facility] [address] [place] [address] Jaya Grier MD [address] [place] [address] [address] [place] [address] ESOPHAGOGASTRODUODENOSCOPY Scheduled Procedures Name Priority Associated Diagnoses Date/Ti nv ESOPHAGOGASTRODUODENOSCOPY Anemia, unspecified type Gastritis without bleeding, unspecified chronicity, unspecified gastritis type 07/13/2024 9:00 AM QUAL RESEARCH MANAGER COLONOSCOPY Iron deficiency anemia due to chronic blood loss documented as of this encounter Visit Diagnoses Diagnosis Acute osteomyelitis of toe of right foot (HCC)- Primary Anemia, unspecified type Gastritis without bleeding, unspecified chronicity, unspecified gastritis type documented in this encounter Discontinued Medications Medication Sig Discontinue Reason Start Date End Da te vancomycin (VANCOCIN) 5 gram injection Infuse 1,500 mg into a venous catheter daily Infuse 1500 mg (2x 750mg/30ml SWI syringes) q 24hr via [id number] pump Dose adjustment 01/24/2020 01/30/2020 documented as of this encounter Historical Medications * This list may reflect changes made after this encounter. vancomycin IVBP Infuse 1,000 mg into a venous catheter daily 02/01/2020 02/14/2020 added in this encounter Additional Health Concerns Infection Onset Date Last Indicated Resolved Time MRSA 01/06/2020 01/06/2020 02/06/2021 5:00 AM CDT documented as of this encounter Care Teams Hosiery Bagger Relationship Specialty Start Date End Date Cherelle Corcoran MD PCP - General Family Medicine 08/30/19 Mark Gallo MD Consulting Physician Infectious Diseases 01/10/20 documented as of this encounter
--- OUTSIDE RECORDS SUMMARY | 2024-07-04 04:22 | XMS_ITS | Encounter Summary ---
Author Organization [facility] Address [address] [place] [address] Phone Care Team Providers Care Plastic Maker Name Role Phone Cherelle Corcoran MD Primary Care Pro vider Mark Queen MD Unavailable [phone]- [phone] Reason for Visit * Auth/Cert Specialty Diagnoses / Procedures Referred By Maryse t Referred To Contact Referral ID Status Reason Start Date Expiration Date Visits Re quested Visits Authorized [id number] 1 1 Encounter Details Date Type Department Care Team (Late st Contact Info) Description 01/28/2020 Home Care Visit [facility] Home Health - [address] [address] [address] [place] [address] Brigid Keenan, STATION INSPECTOR SCREENING CASE COMMUNICATION Social History Tobacco Use [...] file Legal Sex Female 9:03 AM TECHNICIAN TEST SYSTEMS Gender Identity Female 02/08/2020 6:39 PM CDT Sexual Orientation Not on file documented as of this encounter Plan of Treatment Upcoming Encounters Date Type Department Care Team (Latest Contact Info) Description 07/13/2024 9:00 AM TECHNICIAN TEST SYSTEMS Hospital Encounter [facility] [address] [place] [address] Jaya Grier MD [address] [facility] [address] [place] [address] 07/13/2024 9:00 AM TECHNICIAN TEST SYSTEMS - 07/13/2024 9:30 AM TECHNICIAN TEST SYSTEMS Surgery [facility] [address] [place] [address] Jaya Grier MD [facility] [address] [place] [address] ESOPHAGOGASTRODUODENOSCOPY Scheduled Procedures Name Priority Associated Diagnoses Date/Ti me ESOPHAGOGASTRODUODENOSCOPY Anemia, unspecified type Gastritis without bleeding, unspecified chronicity, unspecified gastritis type 07/13/2024 9:00 AM TECHNICIAN TEST SYSTEMS COLONOSCOPY Iron deficiency anemia due to chronic blood loss documented as of this encounter Visit Diagnoses Not on filedocumented in this encounter Additional Health Concerns Infection Onset Date Last Indicated Resolved Time MRSA 01/06/2020 01/06/2020 02/06/2021 5:00 AM CDT documented as of this encounter Care Teams Plastic Maker Relationship Specialty Start Date End Date Cherelle Corcoran MD PCP - General Family Medicine 08/30/19 Mark Queen MD Consulting Physician Infectious Diseases 01/10/20 documented as of this encounter
--- OUTSIDE RECORDS SUMMARY | 2024-07-04 04:22 | XMS_ITS | Encounter Summary ---
Author Organization [facility] Address [address] [place] [address] Phone Care Team Providers Care Spa Manager/Esthetician Name Role Phone Cherelle Corcoran MD Primary Care Pro vider Mark Queen MD Unavailable [phone]- [phone] Reason for Visit * Auth/Cert Specialty Diagnoses / Procedures Referred By Maryse t Referred To Contact Referral ID Status Reason Start Date Expiration Date Visits Re quested Visits Authorized [id number] 1 1 Encounter Details Date Type Department Care Team (Late st Contact Info) Description 01/16/2020 Home Care Visit [facility] Home Health - [address] [address] [address] [place] [address] Brigid Keenan, BOOT AND SHOE LABORER SCREENING CASE COMMUNICATION Social History Tobacco Use [...] on file Legal Sex Female 9:03 AM CREAM BUYER Gender Identity Female 02/08/2020 6:39 PM CDT Sexual Orientation Not on file documented as of this encounter Plan of Treatment Upcoming Encounters Date Type Department Care Team (Latest Contact Info) Description 07/13/2024 9:00 AM CREAM BUYER Hospital Encounter [facility] [address] [place] [address] Jaya Grier MD [address] [place] [address] 07/13/2024 9:00 AM CREAM BUYER - 07/13/2024 9:30 AM CREAM BUYER Surgery [facility] [address] [place] [address] Jaya Grier MD [facility] [address] [place] [address] ESOPHAGOGASTRODUODENOSCOPY Scheduled Procedures Name Priority Associated Diagnoses Date/Ti me ESOPHAGOGASTRODUODENOSCOPY Anemia, unspecified type Gastritis without bleeding, unspecified chronicity, unspecified gastritis type 07/13/2024 9:00 AM CREAM BUYER COLONOSCOPY Iron deficiency anemia due to chronic blood loss documented as of this encounter Visit Diagnoses Not on filedocumented in this encounter Additional Health Concerns Infection Onset Date Last Indicated Resolved Time MRSA 01/06/2020 01/06/2020 02/06/2021 5:00 AM CDT documented as of this encounter Care Teams Spa Manager/Esthetician Relationship Specialty Start Date End Date Cherelle Corcoran MD PCP - General Family Medicine 08/30/19 Mark Queen MD Consulting Physician Infectious Diseases 01/10/20 documented as of this encounter
--- OUTSIDE RECORDS SUMMARY | 2024-07-04 04:22 | XMS_ITS | Encounter Summary ---
Author Organization [facility] Address [address] [place] [address] Care Team Providers Care Furnace Brazer Name Role Phone Cherelle Corcoran MD Primary Care Pro vider Mark Queen MD Unavailable [phone] Encounter Details Date Type Department Care Team (Late st Contact Info) Description 01/16/2020 Documentation [facility] Vascular and Vein Surgery [address] [place] [address] Pham Ulloa MA Social History Tobacco Use Types Packs/Day Years Used Date Smoking Tobacco: Never Smokeless Tobacco: Never Alcohol Use Standard Drinks/Week Comments Not Currently 0 (1 standard drink = 0.6 oz pur e alcohol) PHQ-2 Answer Date Recorded PHQ-2 Total Score 0 01/17/2020 Comments No Sex and Gender Information Value Date Recorded Sex Assigned at Not on file Legal Sex Female 9:03 AM CLOTH FINISHING RANGE OPERATOR CHIEF Gender Identity Female 02/08/2020 6:39 PM CDT Sexual Orientation Not on file documented as of this encounter Progress Notes * Pham Choi MA - 01/16/2020 12:14 PM CDT F/u from [facility]'s call. With farther investigation Dr. Walsh was not the physician who performed the toe amputation. Dr. Anat Pelayo DPM performed the procedure on 01/06/2020. I called [facility] Home health [phone] and explained this to them and stated pt would need to f/u with thephysician that performed the amputation. She took a message and stated she would relay it to Fior.I also called Pt's Daughter, Areli [phone] and explained this to her as well and stated she needs to call Dr. Pelayo's office an explain to them what's going on with her foot and make a appt with them. I gave her their number [phone] and stated I will cancel the appt made with Dr. Tidwell. She understood. documented in this encounter Plan of Treatment Upcoming Encounters Date Type Department Care Team (Latest Contact Info) Description 07/13/2024 9:00 AM CLOTH FINISHING RANGE OPERATOR CHIEF Hospital Encounter [facility] [address] [place] [address] Jaya Grier MD [facility] [facility] [address] [place] [address] 07/13/2024 9:00 AM CLOTH FINISHING RANGE OPERATOR CHIEF - 07/13/2024 9:30 AM CLOTH FINISHING RANGE OPERATOR CHIEF Surgery [facility] [address] [place] [address] Jaya Grier MD [facility] [address] [place] [address] ESOPHAGOGASTRODUODENOSCOPY Scheduled Procedures Name Priority Associated Diagnoses Date/Ti al ESOPHAGOGASTRODUODENOSCOPY Anemia, unspecified type Gastritis without bleeding, unspecified chronicity, unspecified gastritis type 07/13/2024 9:00 AM CLOTH FINISHING RANGE OPERATOR CHIEF COLONOSCOPY Iron deficiency anemia due to chronic blood loss documented as of this encounter Visit Diagnoses Not on filedocumented in this encounter Additional Health Concerns Infection Onset Date Last Indicated Resolved Time MRSA 01/06/2020 01/06/2020 02/06/2021 5:00 AM CDT documented as of this encounter Care Teams Furnace Brazer Relationship Specialty Start Date End Date Cherelle Corcoran MD PCP - General Family Medicine 08/30/19 Mark Queen MD Consulting Physician Infectious Diseases 01/10/20 documented as of this encounter
--- OUTSIDE RECORDS SUMMARY | 2024-07-04 04:22 | XMS_ITS | Encounter Summary ---
Author Organization [facility] Address [address] [place] [address] Care Team Providers Care Blood Bank Technician Name Role Phone Cherelle Corcoran MD Primary Care Pro vider Mark Queen MD Unavailable [phone] Encounter Details Date Type Department Care Team (Late st Contact Info) Description 02/01/2020 Telephone [facility] Primary Care [address] [facility] [address] [place] [address] Cherelle Corcoran MD [facility] [address] [place] [address] Social History Tobacco Use Types Packs/Day Years Used Date Smoking Tobacco: Never Smokeless Tobacco: Never Alcohol Use Standard Drinks/Week Comments Not Currently 0 (1 standard drink = 0.6 oz pur e alcohol) PHQ-2 Answer Date Recorded PHQ-2 Total Score 0 01/17/2020 Comments No Sex and Gender Information Value Date Recorded Sex Assigned at Not on file Legal Sex Female 9:03 AM COGNOS ARCHITECT Gender Identity Female 02/08/2020 6:39 PM CDT Sexual Orientation Not on file documented as of this encounter Miscellaneous Notes * Telephone Encounter - Natacha London MA - 02/13/2020 4:28 PM CDT Pt has video visit tomorrow for f/u * Telephone Encounter - Natacha London MA - 02/08/2020 2:26 PM CDT LMOR * Telephone Encounter - Natacha London MA - 02/06/2020 1:40 PM CDT Called but unable to leave voicemail. * Telephone Encounter - Cherelle Corcoran MD - 02/01/2020 4:26 PM CDT Can we set up video or telephone visit to follow up blood sugar? Thanks documented in this encounter Plan of Treatment Upcoming Encounters Date Type Department Care Team (Latest Contact Info) Description 07/13/2024 9:00 AM COGNOS ARCHITECT Hospital Encounter [facility] [address] [place] [address] Jaya Grier MD [address] [place] [address] DR GAINES [address] [place] [address] 07/13/2024 9:00 AM COGNOS ARCHITECT - 07/13/2024 9:30 AM COGNOS ARCHITECT Surgery [facility] [address] [place] [address] Jaya Grier MD [facility] [facility] [address] GA[address] [place] [address] ESOPHAGOGASTRODUODENOSCOPY Scheduled Procedures Name Priority Associated Diagnoses Date/Ti me ESOPHAGOGASTRODUODENOSCOPY Anemia, unspecified type Gastritis without bleeding, unspecified chronicity, unspecified gastritis type 07/13/2024 9:00 AM COGNOS ARCHITECT COLONOSCOPY Iron deficiency anemia due to chronic blood loss documented as of this encounter Visit Diagnoses Not on filedocumented in this encounter Additional Health Concerns Infection Onset Date Last Indicated Resolved Time MRSA 01/06/2020 01/06/2020 02/06/2021 5:00 AM CDT documented as of this encounter Care Teams Blood Bank Technician Relationship Specialty Start Date End Date Cherelle Corcoran MD PCP - General Family Medicine 08/30/19 Mark Queen MD Consulting Physician Infectious Diseases 01/10/20 documented as of this encounter
--- OUTSIDE RECORDS SUMMARY | 2024-07-04 04:22 | XMS_ITS | Encounter Summary ---
Author Organization [facility] es Address [address] [place] [address] Phone Care Team Providers Care Apprentice Painter Brush Name Role Phone Cherelle Corcoran MD Primary Care Pro vider Mark Gallo MD Unavailable [phone] Reason for Visit * Auth/Cert Specialty Diagnoses / Procedures Referred By Maryse t Referred To Contact Referral ID Status Reason Start Date Expiration Date Visits Re quested Visits Authorized [id number] 1 1 Encounter Details Date Type Department Care Team (Late st Contact Info) Description 01/16/2020 5:00 AM CDT Home Care Visit [facility] [address] [address] [address] [place] [address] Brigid Keenan RN SN HOME VISIT Social [...] on file Legal Sex Female 9:03 AM MINE PROMOTOR Gender Identity Female 02/08/2020 6:39 PM CDT Sexual Orientation Not on file documented as of this encounter Last Filed Vital Signs Vital Sign Reading Time Taken Comments Blood Pressure 160/74 01/16/2020 8:30 AM CDT Pulse 87 01/16/2020 8:30 AM CDT Temperature 36.4 ??C (97.6 ??F) 01/16/2020 8:30 AM CD T Respiratory Rate 20 01/16/2020 8:30 AM CDT Oxygen Saturation 93% 01/16/2020 8:30 AM CDT Inhaled Oxygen Concentration - - Weight - - Height - - Body Mass Index - - documented in this encounter Plan of Treatment Upcoming Encounters Date Type Department Care Team (Latest Contact Info) Description 07/13/2024 9:00 AM MINE PROMOTOR Hospital Encounter [facility] [address] [place] [address] Jaya Grier MD [address] [place] [address] DR GAINES [address] [place] [address] 07/13/2024 9:00 AM MINE PROMOTOR - 07/13/2024 9:30 AM MINE PROMOTOR Surgery [facility] [address] [place] [address] Jaya Grier MD [facility] [facility] [address] [place] [address] ESOPHAGOGASTRODUODENOSCOPY Scheduled Procedures Name Priority Associated Diagnoses Date/Ti la ESOPHAGOGASTRODUODENOSCOPY Anemia, unspecified type Gastritis without bleeding, unspecified chronicity, unspecified gastritis type 07/13/2024 9:00 AM MINE PROMOTOR COLONOSCOPY Iron deficiency anemia due to chronic [...] this visit Wound Risk of Infection Disciplines: Mcfp Risk of infections related to wounds 10/23/2019 Active 1 goal linked to scheduled/documen bruno intervention 1 goal intervention scheduled/document ed in this visit Wound Care Disciplines: Mcfp Wound care needed 10/23/2019 Active - 1 problem intervention scheduled/document ed in this visit Collect Specimen/Lab Draw Disciplines: Mcfp Need to collect specimen sample 01/12/2020 Active - 1 problem intervention scheduled/document ed in this visit IV Therapy-Manag ement, Education, and Maintenance Disciplines: Mcfp Teaching and [...] visit during episode of care Description: Home chief commercial officer to measure vital signs during every home health visit during episode of care. Monitor patient's vital signs every home health visit No Verbalize signs of infection Description: Verbalize signs of infection Infection Prevention No Knowledgeable of infection Description: : Patient will remain free of infection and able to recognizes of signs of infection Wound Risk of Infection No Interventions Intervention [...] Goal:Verbalize signs of infection Completed Patient and mother verbalize understanding. Instruct patient/family/caregive r on infection control and safe disposal of dressing materials Description: Instruct patient/caregiver on how to recognized signs and symptoms of infection and when to notify CARD WRITER HAND and/or physician per Wound Education Booklet. Instruct [...] bag, seal, and place in regular trash. Wound care Description: SN/CG to perform wound care on Right 4th toe site every other day and prn for drainage. Cleanse with wound cleanser, apply iodoflex, mepilex transfer, cover with 4x4's, wrap with conform and coban to secure. Written discharge orders. Problem:Wound Care Completed Patient tolerated well. Called Dr Walsh's office and reported to nurse that foot wound has more slough, more swelling and more darkness to it. Appointment made for patient to be seen in office tomorrow. Lab draw Description: First lab draw to be done on 01/13/20. Obtain Vanco trough and BMP before third dose on 01/13/20. Then obtain CMP, CBC, ESR and Vanco Trough every Thursday and Vanco trough and BMP every . Start Thursday/ labs week of 01/16/20 Written order:Brigid Sheffield/ Dr Gallo Problem:Collect Specimen/Lab Draw Completed Labs drawn this visit. Patient tolerated well. Midline Description: Skilled Nurse to instruct patient/caregiver [...] PICC Problem:IV Therapy-Management, Education, and Maintenance Completed Patient tolerated dressing change well documented in this encounter Care Teams Apprentice Painter Brush Relationship Specialty Start Date End Date Cherelle Corcoran MD PCP - General Family Medicine 08/30/19 Mark Gallo MD Consulting Physician Infectious Diseases 01/10/20 documented as of this encounter
--- OUTSIDE RECORDS SUMMARY | 2024-07-04 04:22 | XMS_ITS | Encounter Summary ---
Author Organization [facility] Address [address] [place] [address] Phone Care Team Providers Care Contracts Representative Name Role Phone Cherelle Corcoran MD Primary Care Pro vider Mark Queen MD Unavailable [phone]- [phone] Reason for Visit * Auth/Cert Specialty Diagnoses / Procedures Referred By Maryse t Referred To Contact Referral ID Status Reason Start Date Expiration Date Visits Re quested Visits Authorized [id number] 1 1 Encounter Details Date Type Department Care Team (Late st Contact Info) Description 01/19/2020 Home Care Visit [facility] Home Health - [address] [address] [address] [place] [address] Brigid Keenan, ALL SOURCE INTELLIGENCE TECHNICIAN SCREENING CASE COMMUNICATION Social History Tobacco Use [...] on file Legal Sex Female 9:03 AM VP RESEARCH Gender Identity Female 02/08/2020 6:39 PM CDT Sexual Orientation Not on file documented as of this encounter Plan of Treatment Upcoming Encounters Date Type Department Care Team (Latest Contact Info) Description 07/13/2024 9:00 AM VP RESEARCH Hospital Encounter [facility] [address] [place] [address] Jaay Grier MD [address] [facility] [address] [place] [address] 07/13/2024 9:00 AM VP RESEARCH - 07/13/2024 9:30 AM VP RESEARCH Surgery [facility] [address] [place] [address] Jaya Grier MD [facility]0 [facility] [address] [place] [address] ESOPHAGOGASTRODUODENOSCOPY Scheduled Procedures Name Priority Associated Diagnoses Date/Ti me ESOPHAGOGASTRODUODENOSCOPY Anemia, unspecified type Gastritis without bleeding, unspecified chronicity, unspecified gastritis type 07/13/2024 9:00 AM VP RESEARCH COLONOSCOPY Iron deficiency anemia due to chronic blood loss documented as of this encounter Visit Diagnoses Not on filedocumented in this encounter Additional Health Concerns Infection Onset Date Last Indicated Resolved Time MRSA 01/06/2020 01/06/2020 02/06/2021 5:00 AM CDT documented as of this encounter Care Teams Contracts Representative Relationship Specialty Start Date End Date Cherelle Corcoran MD PCP - General Family Medicine 08/30/19 Mark Queen MD Consulting Physician Infectious Diseases 01/10/20 documented as of this encounter
--- OUTSIDE RECORDS SUMMARY | 2024-07-04 04:22 | XMS_ITS | Encounter Summary ---
Author Organization [facility] Address [address] [place] [address] Care Team Providers Care Accounts Adjustable Clerk Name Role Phone Cherelle Corcoran MD Primary Care Pro vider Mark Queen MD Unavailable [phone] Encounter Details Date Type Department Care Team (Late st Contact Info) Description 01/16/2020 Telephone [facility] Primary Care [address] [facility] [address] [place] [address] Cherelle Corcoran MD [facility]4 [facility] [address] [place] [address] Social History Tobacco Use Types [...] file Legal Sex Female 9:03 AM WEB ENGINEER Gender Identity Female 02/08/2020 6:39 PM CDT Sexual Orientation Not on file documented as of this encounter Miscellaneous Notes * Telephone Encounter - Rashida Willis MA - 01/16/2020 4:20 PM CDT Appt changed to video * Telephone Encounter - Nikki Vargas - 01/16/2020 3:14 PM CDT Daughter would like to know if patient can do her Transition of care on zoom tomorrow documented in this encounter Plan of Treatment Upcoming Encounters Date Type Department Care Team (Latest Contact Info) Description 07/13/2024 9:00 AM WEB ENGINEER Hospital Encounter [facility] [address] [place] [address] Jaya Grier MD [address] [place] [address] [address] [place] [address] 07/13/2024 9:00 AM WEB ENGINEER - 07/13/2024 9:30 AM WEB ENGINEER Surgery [facility] [address] [place] [address] Jaya Grier MD [address] [place] [address] [address] [place] [address] ESOPHAGOGASTRODUODENOSCOPY Scheduled Procedures Name Priority Associated Diagnoses Date/Ti wa ESOPHAGOGASTRODUODENOSCOPY Anemia, unspecified type Gastritis without bleeding, unspecified chronicity, unspecified gastritis type 07/13/2024 9:00 AM WEB ENGINEER COLONOSCOPY Iron deficiency anemia due to chronic blood loss documented as of this encounter Visit Diagnoses Not on filedocumented in this encounter Additional Health Concerns Infection Onset Date Last Indicated Resolved Time MRSA 01/06/2020 01/06/2020 02/06/2021 5:00 AM CDT documented as of this encounter Care Teams Accounts Adjustable Clerk Relationship Specialty Start Date End Date Cherelle Corcoran MD PCP - General Family Medicine 08/30/19 Mark Queen MD Consulting Physician Infectious Diseases 01/10/20 documented as of this encounter
--- OUTSIDE RECORDS SUMMARY | 2024-07-04 04:22 | XMS_ITS | Encounter Summary ---
Author Organization [facility] Address [address] [place] [address] Care Team Providers Care Data Input Clerk Name Role Phone Cherelle Corcoran MD Primary Care Pro vider Mark Queen MD Unavailable [phone] Reason for Visit * Reason Comments Hospital Follow Up Video visit hospital follow up. Pt is on IV antibiotics. Pt has home health 2 times weekly, they do blood draws and change dressing on her foot. Pt has a f/u appt with her surgeon on . Med Refill Pt needing refills o n victoza and basaglar. Encounter Details Date Type Department Care Team (Latest Contact Info) Description 01/17/2020 10:30 AM CDT Telemedicine [facility] Primary Care [address] [place] [address] [address] [place] [address] Cherelle Corcoran MD [address] [place] [address] [address] [place] [address] Amputation of toe of right foot (CMS/HCC) (Primary Dx); Acute osteomyelitis of toe of right foot (CMS/HCC); Uncontrolled type 2 diabetes mellitus with hyperglycemia (CMS/HCC); Schizophrenia (CMS/HCC) Social History Tobacco Use [...] on file Legal Sex Female 9:03 AM PIGS FEET FINISHER Gender Identity Female 02/08/2020 6:39 PM CDT Sexual Orientation Not on file documented as of this encounter Ordered Prescriptions Prescription Sig Dispense Quantity Refills Last Filled Start Date End Date blood glucose diagnostic stripIndications:Un controlled type 2 diabetes mellitus with hyperglycemia (HCC) Use to check blood sugar 3-4 times a day. 100 each 1 01/17/2020 0 pen needle, diabetic 32 gauge x 3/16 needleIndications:U ncontrolled type 2 diabetes mellitus with hyperglycemia (HCC) Use to inject basaglar nightly 100 each 1 01/17/2020 2 Victoza 2-Vivek 0.6 mg/0.1 mL (18 mg/3 mL) injectionIndication s:Uncontrolled type 2 diabetes mellitus with hyperglycemia (HCC) Inject 1.2 mg under the skin daily 18 mL 1 01/17/2020 0 insulin glargine (LANTUS,BASAGLAR) 100 unit/mL (3 mL) insulin penIndications:type 2 diabetes mellitus Inject 32 Units under the skin nightly 27 mL 1 01/17/2020 0 documented in this encounter Progress Notes * Cherelle Corcoran MD - 01/17/2020 10:30 AM CDT Images from the original note were not included. Assessment/Plan: Assessment/Plan Diagnoses and all orders for this visit: Amputation of toe of right foot (CMS/HCC) (Primary) Assessment & Plan: Has home health Following with vascular Acute osteomyelitis of toe of right foot (CMS/HCC) Assessment & Plan: On IV vanc x6 weeks, daughter providing. [place] paperwork filled out Uncontrolled type 2 diabetes mellitus with hyperglycemia (CMS/HCC) Assessment & Plan: Recommend increasing insulin to 32 units Discussed hypoglycemia precautions Orders: - insulin glargine (LANTUS,BASAGLAR) 100 unit/mL (3 mL) insulin pen; Inject 32 Units under the skinnightly - Victoza 2-Vivek 0.6 mg/0.1 mL (18 mg/3 mL) injection; Inject 1.2 mg under the skin daily - pen needle, diabetic 32 gauge x 3/16 needle; Use to inject basaglar nightly - blood glucose diagnostic strip; Use to check blood sugar 3-4 times a day. Schizophrenia (CMS/[facility]) Assessment & Plan: Encouraged daughter to find psychiatrist through insurance F/u if symptoms not improving or worsen. Strict return/ED precautions discussed. Subjective: This was a telemedicine visit with Barbara Chakraborty which took place via Real-time video connection ([employer], [employer] or similar). During the visit, I was located [facility] and the patient was located at home. The session started at 10:49am and ended at 11:10am. The patient has been informed that the visit may not be secure and acknowledged the information. HPI Chief Complaint Patient presents with ??? Hospital Follow Up Video visit hospital follow up. Pt is on IV antibiotics. Pt has home health 2 times weekly, they doblood draws and change dressing on her foot. Pt has a f/u appt with her surgeon on . ??? Med Refill Pt needing refills on victoza and basaglar. s/p amputation during hospitalization IV vanc daily Diabetes mellitus basaglar 30 units qhs Still doing victoza Did have a blood glucose of 79 yesterday, wasn't eating normally Blood sugar today in 200's Review of Systems Musculoskeletal: Positive for arthralgias and gait problem. Psychiatric/Behavioral: Positive for confusion (chronic, stable). Objective: Vital signs were reviewed. There were no vitals filed for this visit. Physical Exam Gen: NAD, comfortable, appears as stated age Eyes: no conjunctival injection, EOMI ENMT: external ears symmetric, nares patent Pulm: no increased work of breathing Skin: no rashes or nodules, warm and dry, R foot bandaged MSK/Neuro: symmetric limb movement Psych: alert and oriented to person/place Cherelle Corcoran MD documented in this encounter Miscellaneous Notes * Assessment & Plan Note - Cherelle Corcoran MD - 01/19/2020 5:17 PM CDTAssociated Problem(s): Acute osteomyelitis of toe of right foot (HCC) (Resolved 04/17/2020) On IV vanc x6 weeks, daughter providing. FMLA paperwork filled out * Assessment & Plan Note - Cherelle Corcoran MD - 01/19/2020 5:17 PM CDTAssociated Problem(s): History of amputation of toe (CMS/HCC) (HCC) Has home health Following with vascular * Assessment & Plan Note - Cherelle Corcoran MD - 01/19/2020 5:16 PM CDTAssociated Problem(s): Type 2 diabetes mellitus with diabetic neuropathy, with long-term current use of insulin (HCC) Recommend increasing insulin to 32 units Discussed hypoglycemia precautions * Assessment & Plan Note - Cherelle Corcoran MD - 01/19/2020 5:15 PM CDTAssociated Problem(s): Schizoaffective disorder, bipolar type (CMS/HCC) (HCC) (Deleted) Encouraged daughter to find psychiatrist through insurance documented in this encounter Plan of Treatment Upcoming Encounters Date Type Department Care Team (Latest Contact Info) Description 07/13/2024 9:00 AM PIGS FEET FINISHER Hospital Encounter [facility] [address] [place] [address] Jaya Grier MD [address] [address] 07/13/2024 9:00 AM PIGS FEET FINISHER - 07/13/2024 9:30 AM PIGS FEET FINISHER Surgery [facility] [address] [place] [address] Jaya Grier MD [address] [facility] [address] [address] ESOPHAGOGASTRODUODENOSCOPY Scheduled Procedures Name Priority Associated Diagnoses Date/Ti me ESOPHAGOGASTRODUODENOSCOPY Anemia, unspecified type Gastritis without bleeding, unspecified chronicity, unspecified gastritis type 07/13/2024 9:00 AM PIGS FEET FINISHER COLONOSCOPY Iron deficiency anemia due to chronic blood loss documented as of this encounter Visit Diagnoses Diagnosis Amputation of toe of right foot (CMS/HCC) (HCC)- Primary Acute osteomyelitis of toe of right foot (HCC) Uncontrolled type 2 diabetes mellitus with hyperglycemia (HCC) Schizophrenia (HCC) Unspecified schizophrenia, unspecified condition Anemia, unspecified type Gastritis without bleeding, unspecified chronicity, unspecified gastritis type documented in this encounter Discontinued Medications Medication Sig Discontinue Reason Start Date End Da te insulin syringe-needle U-100 (BD Insulin Syringe Ultra-Fine) 1 mL 31 gauge x 5/16 syringe 3 times a day Alternate therapy 09/12/2017 01/17/2020 insulin glargine (LANTUS,BASAGLAR) 100 unit/mL (3 mL) insulin penIndications:type 2 diabetes mellitus Inject 30 Units under the skin nightly Reorder 01/17/2020 Victoza 2-Vivek 0.6 mg/0.1 mL (18 mg/3 mL) injectionIndications:Unco ntrolled type 2 diabetes mellitus with hyperglycemia (HCC) Inject 1.2 mg under the skin daily Reorder 09/06/2019 01/17/2020 pen needle, diabetic 32 gauge x 3/16 needle Once a day Reorder 08/19/2017 01/17/2020 documented as of this encounter Additional Health Concerns Infection Onset Date Last Indicated Resolved Time MRSA 01/06/2020 01/06/2020 02/06/2021 5:00 AM CDT documented as of this encounter Care Teams Data Input Clerk Relationship Specialty Start Date End Date Cherelle Corcoran MD PCP - General Family Medicine 08/30/19 Mark Queen MD Consulting Physician Infectious Diseases 01/10/20 documented as of this encounter
--- OUTSIDE RECORDS SUMMARY | 2024-07-04 04:22 | XMS_ITS | Encounter Summary ---
Author Organization [facility] Home Care Servic es Address [address] [place] [address] Phone Care Team Providers Care Special Needs Tutor Name Role Phone Cherelle Corcoran MD Primary Care Pro vider Mark Queen MD Unavailable [phone] Encounter Details Date Type Department Care Team (Late st Contact Info) Description 01/24/2020 Orders Only [facility] [address] [place] [id number] Wally Beth, [facility] Social History Tobacco Use Types Packs/Day Years Used Date Smoking Tobacco: Never Smokeless Tobacco: Never Alcohol Use Standard Drinks/Week Comments Not Currently 0 (1 standard drink = 0.6 oz pur e alcohol) PHQ-2 Answer Date Recorded PHQ-2 Total Score 0 01/17/2020 Comments No Sex and Gender Information Value Date Recorded Sex Assigned at Not on file Legal Sex Female 9:03 AM PRACTICING DERMATOLOGIST Gender Identity Female 02/08/2020 6:39 PM CDT Sexual Orientation Not on file documented as of this encounter Ordered Prescriptions Prescription Sig Dispense Quantity Refills Last Filled Start Date End Date vancomycin (VANCOCIN) 5 gram injection Infuse 1,500 mg into a venous catheter daily Infuse 1500 mg (2x 750mg/30ml SWI syringes) q 24hr via [id number] pump 6000 mg 3 01/24/2020 0 documented in this encounter Progress Notes * Wally Beth [facility] - 01/24/2020 5:29 PM CDT Vancomycin trough elevated, 22.2. Per Vancomycin protocol, hold one dose and decrease by 250 mg to 1500 mg iv q 24 hours. Next lab draw scheduled for 01/28/2020. Daughter aware. documented in this encounter Plan of Treatment Upcoming Encounters Date Type Department Care Team (Latest Contact Info) Description 07/13/2024 9:00 AM PRACTICING DERMATOLOGIST Hospital Encounter [facility] [address] [place] [address] Jaya Grier MD [facility] [address] [place] [address] 07/13/2024 9:00 AM PRACTICING DERMATOLOGIST - 07/13/2024 9:30 AM PRACTICING DERMATOLOGIST Surgery [facility] [address] [place] [address] Jaya Grier MD [facility] [address] [place] [address] ESOPHAGOGASTRODUODENOSCOPY Scheduled Procedures Name Priority Associated Diagnoses Date/Ti nd ESOPHAGOGASTRODUODENOSCOPY Anemia, unspecified type Gastritis without bleeding, unspecified chronicity, unspecified gastritis type 07/13/2024 9:00 AM PRACTICING DERMATOLOGIST COLONOSCOPY Iron deficiency anemia due to chronic blood loss documented as of this encounter Procedures Procedure Name Priority Date/Time Associated Diagnosis Comments VANCOMYCIN LEVEL TROUGH STAT 01/28/2020 9:15 AM CDT documented in this encounter Results * Vancomycin, trough (01/28/2020 9:15 AM CDT) Vancomycin trough 18.7 15.0 - 20.0 mcg/mL [facility] ([facility]) Comment: Intepretive Data Therapeutic range: ??15 - 20 mcg/ml Current interpretive data was last revised on 2014 Blood specimen (specimen) 01/28/2020 9:15 AM CDT 01/28/2020 11:04 AM CDT us Mark Queen MD LAB BLOOD ORDERABLES Final Result [facility] ([place]) 1 [facility] Department [place] [address] documented in this encounter Visit Diagnoses Not on filedocumented in this encounter Discontinued Medications Medication Sig Discontinue Reason Start Date End Da te vancomycin IVBP Infuse 1,750 mg into a venous catheter daily Patient is to infuse 2 syringes at 35 ml (2 x 875mg = 1750mg) each for a total of 70 ml one time every 24 hours Dose adjustment 01/12/2020 01/24/2020 documented as of this encounter Additional Health Concerns Infection Onset Date Last Indicated Resolved Time MRSA 01/06/2020 01/06/2020 02/06/2021 5:00 AM CDT documented as of this encounter Care Teams Special Needs Tutor Relationship Specialty Start Date End Date Cherelle Corcoran MD PCP - General Family Medicine 08/30/19 Mark Queen MD Consulting Physician Infectious Diseases 01/10/20 documented as of this encounter
--- OUTSIDE RECORDS SUMMARY | 2024-07-04 04:22 | XMS_ITS | Encounter Summary ---
Author Organization [facility] Home Care Servic es Address [address] [place] [address] Phone Care Team Providers Care Screen Operator Name Role Phone Cherelle Corcoran MD Primary Care Pro vider Mark Queen MD Unavailable [phone] Reason for Visit * Auth/Cert Specialty Diagnoses / Procedures Referred By Maryse lama Referred To Contact Referral ID Status Reason Start Date Expiration Date Visits Re quested Visits Authorized [id number] 1 1 Encounter Details Date Type Department Care Team (Late Contact Info) Description 01/21/2020 Home Care Visit [facility] Home Health [address] [place] [address] [address] [place] [address] Diane Calderón SPREADER SCREENING CASE COMMUNICATION Social History Tobacco Use [...] on file Legal Sex Female 9:03 AM ELECTROLYTIC DE SCALER Gender Identity Female 02/08/2020 6:39 PM CDT Sexual Orientation Not on file documented as of this encounter Plan of Treatment Upcoming Encounters Date Type Department Care Team (Latest Contact Info) Description 07/13/2024 9:00 AM ELECTROLYTIC DE SCALER Hospital Encounter [facility] [address] [place] [address] Jaya Grier MD [address] [facility] [address] [place] [address] 07/13/2024 9:00 AM ELECTROLYTIC DE SCALER - 07/13/2024 9:30 AM ELECTROLYTIC DE SCALER Surgery [facility] [address] [place] [address] Jaya Grier MD [address] [facility] [address] [place] [address] ESOPHAGOGASTRODUODENOSCOPY Scheduled Procedures Name Priority Associated Diagnoses Date/Ti me ESOPHAGOGASTRODUODENOSCOPY Anemia, unspecified type Gastritis without bleeding, unspecified chronicity, unspecified gastritis type 07/13/2024 9:00 AM ELECTROLYTIC DE SCALER COLONOSCOPY Iron deficiency anemia due to chronic blood loss documented as of this encounter Visit Diagnoses Not on filedocumented in this encounter Additional Health Concerns Infection Onset Date Last Indicated Resolved Time MRSA 01/06/2020 01/06/2020 02/06/2021 5:00 AM CDT documented as of this encounter Care Teams Screen Operator Relationship Specialty Start Date End Date Cherelle Corcoran MD PCP - General Family Medicine 08/30/19 Mark Queen MD Consulting Physician Infectious Diseases 01/10/20 documented as of this encounter
--- OUTSIDE RECORDS SUMMARY | 2024-07-04 04:22 | XMS_ITS | Encounter Summary ---
Author Organization [facility] Home Care Servic es Address [address] [place] [address] Phone Care Team Providers Care Child Nutrition Director Name Role Phone Cherelle Corcoran MD Primary Care Pro vider Mark Gallo MD Unavailable [phone]- [phone] Reason for Visit * Auth/Cert Specialty Diagnoses / Procedures Referred By Maryse t Referred To Contact Referral ID Status Reason Start Date Expiration Date Visits Re quested Visits Authorized [id number] 1 1 Encounter Details Date Type Department Care Team (Late st Contact Info) Description 01/19/2020 8:00 AM CDT Home Care Visit [facility] Health [place] [address] [address] [place] [address] Brigid Keenan RN SN HOME VISIT Social [...] on file Legal Sex Female 9:03 AM FENCE LABORER Gender Identity Female 02/08/2020 6:39 PM CDT Sexual Orientation Not on file documented as of this encounter Last Filed Vital Signs Vital Sign Reading Time Taken Comments Blood Pressure 160/70 01/19/2020 8:30 AM CDT Pulse 88 01/19/2020 8:30 AM CDT Temperature 36.3 ??C (97.3 ??F) 01/19/2020 8:30 AM CD T Respiratory Rate 18 01/19/2020 8:30 AM CDT Oxygen Saturation 97% 01/19/2020 8:30 AM CDT Inhaled Oxygen Concentration - - Weight - - Height - - Body Mass Index - - documented in this encounter Plan of Treatment Upcoming Encounters Date Type Department Care Team (Latest Contact Info) Description 07/13/2024 9:00 AM FENCE LABORER Hospital Encounter [facility] [address] [place] [address] Jaya Grier MD [address] [place] [address] [address] [place] [address] 07/13/2024 9:00 AM FENCE LABORER - 07/13/2024 9:30 AM FENCE LABORER Surgery [facility] [address] [place] [address] Jaya Grier MD [facility] [address] [place] [address] ESOPHAGOGASTRODUODENOSCOPY Scheduled Procedures Name Priority Associated Diagnoses Date/Ti wa ESOPHAGOGASTRODUODENOSCOPY Anemia, unspecified type Gastritis without bleeding, unspecified chronicity, unspecified gastritis type 07/13/2024 9:00 AM FENCE LABORER COLONOSCOPY Iron deficiency anemia due to chronic blood loss documented as of this encounter Visit Diagnoses Not on filedocumented in this encounter Additional Health Concerns Infection Onset Date Last Indicated Resolved Time MRSA 01/06/2020 01/06/2020 02/06/2021 5:00 AM CDT documented as of this encounter Home Health Visit - Care Plan Visit Details Visit Type -SN Home Visit Discipline -Fci Problems Problem Description Start Date Status Goals Interve ntions Homebound Status Disciplines: Fci Patient's homebound status 10/23/2019 Active 1 goal linked to scheduled/documen bruno intervention 1 goal intervention scheduled/document ed in this visit Monitor patient's vital signs every home health visit Disciplines: Fci Monitor patient's vital signs every home health visit. 10/23/2019 Active 1 goal linked to scheduled/documen bruno intervention 1 goal intervention scheduled/document ed in this visit Infection Prevention Disciplines: Fci Infection Prevention 10/23/2019 Active 1 goal linked to scheduled/documen bruno intervention 1 goal intervention scheduled/document ed in this visit Wound Care Disciplines: Fci Wound care needed 10/23/2019 Active - 1 problem intervention scheduled/document ed in this visit Learning/Teac jasiel Needs - Diabetes Disciplines: Fci Learning and teaching needs associated with diagnosis 10/23/2019 Active 1 goal linked to scheduled/documen bruno intervention 1 goal intervention scheduled/document ed in this visit Collect Specimen/Lab Draw Disciplines: Fci Need to collect specimen sample 01/12/2020 Active - 1 problem intervention scheduled/document ed in this visit Goals Goal Associated Problem Outcome Goal Met? Visit Notes Patient recieves care at the most appropriate care setting Description: Patient receives care at the most appropriate care setting. Homebound Status No Measure vital signs during every home health visit during episode of care Description: Home fitness assistant to measure vital signs during every home [...] infection Completed Patient and daughter verbalize understanding. Wound care Description: SN/CG to perform wound care on Right 4th toe site every other day and prn for drainage. Cleanse with wound cleanser, apply iodoflex, mepilex transfer, cover with 4x4's, wrap with conform and coban to secure. Written discharge orders. Problem:Wound Care Completed Wound care to be done at Dr Pelayo's office today. Instruct diet Description: Instruct on diabetic diet. instructed to limit sugars and carbs. Problem:Learning/Teach ing Needs - Diabetes Goal:Demonstrate adequate knowledge of Diabetes Completed Patient and daughter verbalize understanding Lab draw Description: First lab draw to be done on 01/13/20. Obtain Vanco trough and BMP before third dose on 01/13/20. Then obtain CMP, CBC, ESR and Vanco Trough every Thursday and Vanco trough and BMP every . Start Thursday/ labs week of 01/16/20 Written order:Brigid Sheffield/ Dr Gallo Problem:Collect Specimen/Lab Draw Completed Blood drawn this visit. Patient tolerated well. documented in this encounter Care Teams Child Nutrition Director Relationship Specialty Start Date End Date Cherelle Corcoran MD PCP - General Family Medicine 08/30/19 Mark Gallo MD Consulting Physician Infectious Diseases 01/10/20 documented as of this encounter
--- OUTSIDE RECORDS SUMMARY | 2024-07-04 04:22 | XMS_ITS | Encounter Summary ---
Author Organization [facility] Home Care Servic es Address [address] [place] [address] Phone Care Team Providers Care Stylist Apprentice Name Role Phone Cherelle Corcoran MD Primary Care Pro vider Mark Queen MD Unavailable [phone] Reason for Visit * Auth/Cert Specialty Diagnoses / Procedures Referred By Maryse lama Referred To Contact Referral ID Status Reason Start Date Expiration Date Visits Re quested Visits Authorized [id number] 1 1 Encounter Details Date Type Department Care Team (Late st Contact Info) Description 01/31/2020 1:00 PM CDT Home Care Visit [facility] [address] [address] [address] [place] [address] Bonita Darby RN SN HOME VISIT Social History Tobacco [...] on file Legal Sex Female 9:03 AM ROCK CLIMBING INSTRUCTOR Gender Identity Female 02/08/2020 6:39 PM CDT Sexual Orientation Not on file documented as of this encounter Last Filed Vital Signs Vital Sign Reading Time Taken Comments Blood Pressure 142/80 01/31/2020 1:24 PM CDT Pulse 98 01/31/2020 1:24 PM CDT Temperature 36.8 ??C (98.2 ??F) 01/31/2020 1:24 PM CD T Respiratory Rate 16 01/31/2020 1:24 PM CDT Oxygen Saturation 93% 01/31/2020 1:24 PM CDT Inhaled Oxygen Concentration - - Weight - - Height - - Body Mass Index - - documented in this encounter Plan of Treatment Upcoming Encounters Date Type Department Care Team (Latest Contact Info) Description 07/13/2024 9:00 AM ROCK CLIMBING INSTRUCTOR Hospital Encounter [facility] GI Lab [address] [place] [address] Jaya Grier MD [facility] [facility] [address] [place] [address] 07/13/2024 9:00 AM ROCK CLIMBING INSTRUCTOR - 07/13/2024 9:30 AM ROCK CLIMBING INSTRUCTOR Surgery [facility] GI Lab [address] [place] [address] Jaya Grier MD [facility] [address] [place] [address] ESOPHAGOGASTRODUODENOSCOPY Scheduled Procedures Name Priority Associated Diagnoses Date/Ti tn ESOPHAGOGASTRODUODENOSCOPY Anemia, unspecified type Gastritis without bleeding, unspecified chronicity, unspecified gastritis type 07/13/2024 9:00 AM ROCK CLIMBING INSTRUCTOR COLONOSCOPY Iron deficiency anemia due to [...] intervention scheduled/document ed in this visit Fall Precautions/S afety Concerns Disciplines: [facility] Alteration in safety 10/23/2019 Active 1 goal [...] visit during episode of care Description: Home rental counter clerk to measure vital signs during every home health visit during episode of care. Monitor patient's vital signs every home health visit No Demonstrate use of safety precautions Description: Demonstrate use of safety precautions Fall Precautions/Safety Concerns No Interventions Intervention Associated Problem/Goal Status Variance [...] health visit during episode of care Completed [place] Fall Precautions Description: Assess patient safety Problem:Fall Precautions/Safety Concerns Goal:Demonstrate use of safety precautions Completed Lab draw Description: Starting 01/31/20 SN to draw random vanc levels and BMP daily until vanc level less than 20. CHIP Linton/Dr. Keane/Brigid [place]/ALIREZA Amador Problem:Collect Specimen/Lab Draw Completed Skilled nurse to flush line with 10 mL NS prior to blood draw and withdraw 5-10 mL of blood for waste, obtain blood sample of random vancomycin and bmp, flush with 20 mL of NS and appropriate Heparin dose specific for IV access. documented in this encounter Home Health Visit - Actions and Narratives Actions SNV for assessment and labs this date due to elevated vancomycin level yesterday. upon arrival patient home alone. she reports that she took her antibiotic this am. patient does not have extension tubing on iv and stated that someone comes over to make sure she was able to do it. Patient noted to be talking to herself at times during visit. Called and spoke with daughter and she reports that she takes care of the administration of the antibiotic and that patient did not have it today. daughter reports that patient has schitzophrenia and is not all with it. patient labs obtained without difficulty from picc line. patient has no s/s of vanco toxicity. documented in this encounter Care Teams Stylist Apprentice Relationship Specialty Start Date End Date Cherelle Corcoran MD PCP - General Family Medicine 08/30/19 Mark Queen MD Consulting Physician Infectious Diseases 01/10/20 documented as of this encounter
--- OUTSIDE RECORDS SUMMARY | 2024-07-04 04:22 | XMS_ITS | Encounter Summary ---
Author Organization [facility] Home Care Servic es Address [address] [place] [address] Phone Care Team Providers Care Manager Of Transportation Name Role Phone Cherelle Corcoran MD Primary Care Pro vider Mark Queen MD Unavailable [phone]- [phone] Reason for Visit * Auth/Cert Specialty Diagnoses / Procedures Referred By Maryse t Referred To Contact Referral ID Status Reason Start Date Expiration Date Visits Re quested Visits Authorized [id number] 1 1 Encounter Details Date Type Department Care Team (Late st Contact Info) Description 01/31/2020 Home Care Visit [facility] Home Health [address] [address] [address] [place] [address] Bonita Darby DYNAMITER SCREENING CASE COMMUNICATION Social History Tobacco Use [...] on file Legal Sex Female 9:03 AM SFDC SOLUTION ARCHITECT Gender Identity Female 02/08/2020 6:39 PM CDT Sexual Orientation Not on file documented as of this encounter Plan of Treatment Upcoming Encounters Date Type Department Care Team (Latest Contact Info) Description 07/13/2024 9:00 AM SFDC SOLUTION ARCHITECT Hospital Encounter [facility] GI Lab [address] [place] [address] Jaya Grier MD [address] [facility] [address] [place] [address] 07/13/2024 9:00 AM SFDC SOLUTION ARCHITECT - 07/13/2024 9:30 AM SFDC SOLUTION ARCHITECT Surgery [facility] GI Lab [address] [place] [address] Jaya Grier MD [address] [facility] [address] [place] [address] ESOPHAGOGASTRODUODENOSCOPY Scheduled Procedures Name Priority Associated Diagnoses Date/Ti me ESOPHAGOGASTRODUODENOSCOPY Anemia, unspecified type Gastritis without bleeding, unspecified chronicity, unspecified gastritis type 07/13/2024 9:00 AM SFDC SOLUTION ARCHITECT COLONOSCOPY Iron deficiency anemia due to chronic blood loss documented as of this encounter Visit Diagnoses Not on filedocumented in this encounter Additional Health Concerns Infection Onset Date Last Indicated Resolved Time MRSA 01/06/2020 01/06/2020 02/06/2021 5:00 AM CDT documented as of this encounter Care Teams Manager Of Transportation Relationship Specialty Start Date End Date Cherelle Corcoran MD PCP - General Family Medicine 08/30/19 Mark Queen MD Consulting Physician Infectious Diseases 01/10/20 documented as of this encounter
--- OUTSIDE RECORDS SUMMARY | 2024-07-04 04:22 | XMS_ITS | Encounter Summary ---
Author Organization [facility] Home Care Servic es Address [address] [place] [address] Phone Care Team Providers Care Real Estate Agency Licensee Name Role Phone Cherelle Corcoran MD Primary Care Pro vider Mark Gallo MD Unavailable [phone]- [phone] Reason for Visit * Auth/Cert Specialty Diagnoses / Procedures Referred By Maryse t Referred To Contact Referral ID Status Reason Start Date Expiration Date Visits Re quested Visits Authorized [id number] 1 1 Encounter Details Date Type Department Care Team (Late st Contact Info) Description 01/23/2020 8:00 AM CDT Home Care Visit [facility] [address] [address] [address] [place] [address] Brigid Keenan RN SN HOME VISIT Social [...] on file Legal Sex Female 9:03 AM REAL ESTATE ACQUISITION ANALYST Gender Identity Female 02/08/2020 6:39 PM CDT Sexual Orientation Not on file documented as of this encounter Last Filed Vital Signs Vital Sign Reading Time Taken Comments Blood Pressure 98/56 01/23/2020 9:00 AM CDT Pulse 86 01/23/2020 9:00 AM CDT Temperature 36.4 ??C (97.6 ??F) 01/23/2020 9:00 AM CD T Respiratory Rate 18 01/23/2020 9:00 AM CDT Oxygen Saturation 98% 01/23/2020 9:00 AM CDT Inhaled Oxygen Concentration - - Weight - - Height - - Body Mass Index - - documented in this encounter Plan of Treatment Upcoming Encounters Date Type Department Care Team (Latest Contact Info) Description 07/13/2024 9:00 AM REAL ESTATE ACQUISITION ANALYST Hospital Encounter [facility] GI Lab [address] [place] [address] Jaya Grier MD [facility] [address] [place] [address] 07/13/2024 9:00 AM REAL ESTATE ACQUISITION ANALYST - 07/13/2024 9:30 AM REAL ESTATE ACQUISITION ANALYST Surgery [facility] GI Lab [address] [place] [address] Jaya Grier MD [facility] [address] [place] [address] ESOPHAGOGASTRODUODENOSCOPY Scheduled Procedures Name Priority Associated Diagnoses Date/Ti dc ESOPHAGOGASTRODUODENOSCOPY Anemia, unspecified type Gastritis without bleeding, unspecified chronicity, unspecified gastritis type 07/13/2024 9:00 AM REAL ESTATE ACQUISITION ANALYST COLONOSCOPY Iron deficiency anemia due to chronic blood loss documented as of this encounter Visit Diagnoses Not on filedocumented in this encounter Additional Health Concerns Infection Onset Date Last Indicated Resolved Time MRSA 01/06/2020 01/06/2020 02/06/2021 5:00 AM CDT documented as of this encounter Home Health Visit - Care Plan Visit Details Visit Type -SN Home Visit Discipline -Custodial Problems Problem Description Start Date Status Goals Interve ntions Homebound Status Disciplines: Custodial Patient's homebound status 10/23/2019 Active 1 goal linked to scheduled/documen bruno intervention 1 goal intervention scheduled/document ed in this visit Monitor patient's vital signs every home health visit Disciplines: Custodial Monitor patient's vital signs every home health visit. 10/23/2019 Active 1 goal linked to scheduled/documen bruno intervention 1 goal intervention scheduled/document ed in this visit Infection Prevention Disciplines: Custodial Infection Prevention 10/23/2019 Active 1 goal linked to scheduled/documen bruno intervention 1 goal intervention scheduled/document ed in this visit Wound Care Disciplines: Custodial Wound care needed 10/23/2019 Active - 1 problem intervention scheduled/document ed in this visit Collect Specimen/Lab Draw Disciplines: Custodial Need to collect specimen sample 01/12/2020 Active - 1 problem intervention scheduled/document ed in this visit Goals Goal Associated Problem Outcome Goal Met? Visit Notes Patient recieves care at the most appropriate care setting Description: Patient receives care at the most appropriate care setting. Homebound Status No Measure vital signs during every home health visit during episode of care Description: Home substance abuse clinician to measure vital signs during every [...] infection Completed Patient and daughter verbalizes understanding. Wound care Description: SN/CG to perform wound care on Right 4th toe site every other day and prn for drainage. Cleanse with wound cleanser, apply iodoflex, mepilex transfer, cover with 4x4's, wrap with conform and coban to secure. Written discharge orders. Problem:Wound Care Completed Performed this visit. Patient tolerated well. Lab draw Description: First lab draw to [...] . Start Thursday/ labs week of 01/16/20 documented in this encounter Care Teams Real Estate Agency Licensee Relationship Specialty Start Date End Date Cherelle Corcoran MD PCP - General Family Medicine 08/30/19 Mark Gallo MD Consulting Physician Infectious Diseases 01/10/20 documented as of this encounter
--- OUTSIDE RECORDS SUMMARY | 2024-07-04 04:22 | XMS_ITS | Encounter Summary ---
Author Organization [facility] Healthcare Address [address] [place] [address] Care Team Providers Care Practice Lead Name Role Phone Cherelle Corcoran MD Primary Care Pro vider Mark Queen MD Unavailable [phone] Encounter Details Date Type Department Care Team (Late st Contact Info) Description 01/30/2020 11:35 AM CDT Lab [facility] [address] [place] [address] Social History Tobacco Use Types Packs/Day Years Used Date Smoking Tobacco: Never Smokeless Tobacco: Never Alcohol Use Standard Drinks/Week Comments Not Currently 0 (1 standard drink = 0.6 oz pur e alcohol) PHQ-2 Answer Date Recorded PHQ-2 Total Score 0 01/17/2020 Comments No Sex and Gender Information Value Date Recorded Sex Assigned at Not on file Legal Sex Female 9:03 AM COMMUNICATIONS INTERN Gender Identity Female 02/08/2020 6:39 PM CDT Sexual Orientation Not on file documented as of this encounter Plan of Treatment Upcoming Encounters Date Type Department Care Team (Latest Contact Info) Description 07/13/2024 9:00 AM COMMUNICATIONS INTERN Hospital Encounter [facility] GI Lab [address] [place] [address] Jaya Grier MD [address] [address] 07/13/2024 9:00 AM COMMUNICATIONS INTERN - 07/13/2024 9:30 AM COMMUNICATIONS INTERN Surgery [facility] GI Lab [address] [place] [address] Jaya Grier MD [address] [facility] [address] [place] [address] ESOPHAGOGASTRODUODENOSCOPY Scheduled Procedures Name Priority Associated Diagnoses Date/Ti me ESOPHAGOGASTRODUODENOSCOPY Anemia, unspecified type Gastritis without bleeding, unspecified chronicity, unspecified gastritis type 07/13/2024 9:00 AM COMMUNICATIONS INTERN COLONOSCOPY Iron deficiency anemia due to chronic blood loss documented as of this encounter Procedures Procedure Name Priority Date/Time Associated Diagnosis Comments EGFR Routine 01/30/2020 9:00 AM CDT DIFFERENTIAL AUTO Routine 01/30/2020 9:0 0 AM CDT CBC WITH AUTO DIFFERENTIAL Routine 01/30/2020 9:00 AM CDT ERYTHROCYTE SEDIMENTATION RATE Routine 01/30/2020 9:00 AM CDT VANCOMYCIN LEVEL TROUGH Routine 01/30/2020 9:00 AM CDT COMPREHENSIVE METABOLIC PANEL Routine 01/30/2020 9:00 AM CDT documented in this encounter Results * eGFR (01/30/2020 9:00 AM CDT) eGFR 50 mL/min/1.7 3 m2 [facility] ([place]) Comment: Interpretive Data Reference Interval Normal ?>/= 90 mL/min/1.73m2 Mildly decreased* ? 60 - 89 mL/min/1.73m2 Mildly to moderately decreased ?45 - 59 mL/min/1.73m2 Moderately to severely decreased ??30 - 44 mL/min/1.73m2 Severely decreased ?15 - 29 mL/min/1.73m2 Kidney Failure ?< 15 ??mL/min/1.73m2 *Relative to young adult level If -Bhutanese multiply value by 1.16. Estimated glomerular filtration [...] was last reviewed 2016. Blood specimen (specimen) 01/30/2020 9:00 AM CDT 01/30/2020 11:36 AM CDT us Mark Queen MD LAB BLOOD ORDERABLES Final Result [facility] ([place] 1 [facility] Department [place] [address] * Differential, auto (01/30/2020 9:00 AM CDT) Neutrophil abs 4.3 1.7 - 6.5 K/cumm [facility] ([place]) Imm gran abs 0.0 0.0 - 0.1 K/cumm [facility] ([place]) Lymphocyte abs 1.5 0.8 - 3.3 K/cumm [facility] ([place]) Monocyte abs 0.7 0.2 - 0.8 K/cumm [facility] ([place]) Eosinophil abs 0.4 0.0 - 0.5 K/cumm [facility] ([place]) Basophil abs 0.1 0.0 - 0.1 K/cumm [facility] ([place]) Neutrophil pct 61.5 % [facility] ([place]) Comment: Interpretive Data Percent cell count reference ranges are not reported, since discordance with absolute values may lead to misinterpretation of CBC data. Current Interpretive Data was last revised on 2017. Imm gran pct 0.3 % [facility] ([place]) Comment: Interpretive Data Percent cell count reference ranges are not reported, since discordance with absolute values may lead to misinterpretation of CBC data. Current Interpretive Data was last revised on 2017. Lymphocyte pct 22.0 % [facility] ([place]) Comment: Interpretive Data Percent cell count reference ranges are not reported, since discordance with absolute values may lead to misinterpretation of CBC data. Current Interpretive Data was last revised on 2017. Monocyte pct 9.3 % [facility] ([place]) Comment: Interpretive Data Percent cell count reference ranges are not reported, since discordance with absolute values may lead to misinterpretation of CBC data. Current Interpretive Data was last revised on 2017. Eosinophil pct 6.0 % [facility] ([place]) Comment: Interpretive Data Percent cell count reference ranges are not reported, since discordance with absolute values may lead to misinterpretation of CBC data. Current Interpretive Data was last revised on 2017. Basophil pct 0.9 % [facility] ([place]) Comment: Interpretive Data Percent cell count reference ranges are not reported, since discordance with absolute values may lead to misinterpretation of CBC data. Current Interpretive Data was last revised on 2017. Blood specimen (specimen) 01/30/2020 9:00 AM CDT 01/30/2020 11:36 AM CDT us Mark Queen MD LAB BLOOD ORDERABLES Final Result [facility] ([place]) 1 [facility] Department [place] [address] * (ABNORMAL) CBC with auto differential (01/30/2020 9:00 AM CDT) WBC 7.0 3.8 - 9.9 K/cumm [facility] ([place]) Hgb 9.0(L) 11.9 - 15.5 g/dL [facility] ([place]) Hct 29.5(L) 35.6 - 45.5 % [facility] ([place]) Plt 404(H) 150 - 400 K/cumm [facility] ([place]) MPV 10.4 9.1 - 12.3 fL [facility] ([place]) RBC 3.11(L) 3.90 - 5.20 M/cumm [facility] ([place]) MCV 94.9 81.3 - 96.4 fL [facility] ([place]) MCH 28.9 27.1 - 33.3 pg [facility] ([place]) MCHC 30.5(L) 32.3 - 35.7 g/dL [facility] ([place]) RDW CV 16.5(H) 11.1 - 14.9 % [facility] ([place]) RDW SD 56.3(H) 35.7 - 48.1 fL [facility] ([place]) NRBC abs 0.00 0.00 - 0.01 K/cumm [facility] ([place]) Blood specimen (specimen) 01/30/2020 9:00 AM CDT 01/30/2020 11:36 AM CDT us Mark Queen MD LAB BLOOD ORDERABLES Final Result Performing Organization Address City/[facility]/ZIP Co de Phone Number [facility] ([place]) 1 [facility] [place] [address] * (ABNORMAL) Vancomycin, trough (01/30/2020 9:00 AM CDT) Vancomycin trough 21.1(H) 15.0 - 20.0 mcg/mL [facility] ([place]) Comment: Intepretive Data Therapeutic range: ??15 - 20 mcg/ml Current interpretive data was last revised on 2014 Blood specimen (specimen) 01/30/2020 9:00 AM CDT 01/30/2020 11:36 AM CDT us Mark Queen MD LAB BLOOD ORDERABLES Final Result [facility] ([place]) 1 [facility] [place] [address] * (ABNORMAL) Comprehensive metabolic panel (01/30/2020 9:00 AM CDT) Sodium 143 135 - 145 mmol/L [facility] ([place]) Potassium, pl 3.6 3.3 - 4.9 mmol/L [facility] ([place]) Chloride 103 97 - 110 mmol/L [facility] ([place]) CO2 27 22 - 32 mmol/L [facility] ([place]) Anion gap 13 2 - 15 mmol/L [facility] ([place]) BUN 19 8 - 25 mg/dL [facility] ([place]) Creatinine 1.12(H) 0.60 - 1.10 mg/dL [facility] ([place]) Glucose 75 70 - 199 mg/dL [facility] ([place]) [...] 2017. Calcium 9.4 8.5 - 10.3 mg/dL [facility] ([place]) Bilirubin, total 0.3 0.1 - 1.2 mg/dL [facility] ([place]) Protein, pl 8.1 6.5 - 8.5 g/dL [facility] ([place]) Albumin 3.2(L) 3.5 - 5.0 g/dL [facility] ([place]) Alk phos 253(H) 40 - 130 Units/L [facility] ([place]) ALT 27 7 - 45 Units/L [facility] ([place]) AST 26 10 - 45 Units/L [facility] ([place]) Blood specimen (specimen) 01/30/2020 9:00 AM CDT 01/30/2020 11:36 AM CDT us Mark Queen MD LAB BLOOD ORDERABLES Final Result [facility] ([place]) 1 [facility] Department [place] [address] * (ABNORMAL) Erythrocyte sedimentation rate (01/30/2020 9:00 AM CDT) Erythrocyte sedimentation rate 116(H) 1 - 30 mm/hr [facility] ([place]) Blood specimen (specimen) 01/30/2020 9:00 AM CDT 01/30/2020 11:36 AM CDT us Mark Queen MD LAB BLOOD ORDERABLES Final Result [facility] ([place]) 1 [facility] [place] [place] [address] documented in this encounter Visit Diagnoses Not on filedocumented in this encounter Additional Health Concerns Infection Onset Date Last Indicated Resolved Time MRSA 01/06/2020 01/06/2020 02/06/2021 5:00 AM CDT documented as of this encounter Care Teams Practice Lead Relationship Specialty Start Date End Date Cherelle Corcoran MD PCP - General Family Medicine 08/30/19 Mark Queen MD Consulting Physician Infectious Diseases 01/10/20 documented as of this encounter
--- OUTSIDE RECORDS SUMMARY | 2024-07-04 04:22 | XMS_ITS | Encounter Summary ---
Author Organization [facility] Home Care Servic es Address [address] [place] [address] Phone Care Team Providers Care Asbestos Remover Name Role Phone Cherelle Corcoran MD Primary Care Pro vider Mark Queen MD Unavailable [phone] Encounter Details Date Type Department Care Team (Late st Contact Info) Description 02/02/2020 Orders Only [facility] [address] [place] [id number] Brigid [place] [facility] Social History Tobacco Use Types Packs/Day Years Used Date Smoking Tobacco: Never Smokeless Tobacco: Never Alcohol Use Standard Drinks/Week Comments Not Currently 0 (1 standard drink = 0.6 oz pur e alcohol) PHQ-2 Answer Date Recorded PHQ-2 Total Score 0 01/17/2020 Comments No Sex and Gender Information Value Date Recorded Sex Assigned at Not on file Legal Sex Female 9:03 AM SENIOR MANAGER CREATIVE SERVICES Gender Identity Female 02/08/2020 6:39 PM CDT Sexual Orientation Not on file documented as of this encounter Plan of Treatment Upcoming Encounters Date Type Department Care Team (Latest Contact Info) Description 07/13/2024 9:00 AM SENIOR MANAGER CREATIVE SERVICES Hospital Encounter [facility] [address] [place] [address] Jaya Grier MD [address] [facility] [address] [place] [address] 07/13/2024 9:00 AM SENIOR MANAGER CREATIVE SERVICES - 07/13/2024 9:30 AM SENIOR MANAGER CREATIVE SERVICES Surgery [facility] [address] [place] [address] Jaya Grier MD [address] [facility] [address] [place] [address] ESOPHAGOGASTRODUODENOSCOPY Scheduled Procedures Name Priority Associated Diagnoses Date/Ti me ESOPHAGOGASTRODUODENOSCOPY Anemia, unspecified type Gastritis without bleeding, unspecified chronicity, unspecified gastritis type 07/13/2024 9:00 AM SENIOR MANAGER CREATIVE SERVICES COLONOSCOPY Iron deficiency anemia due to chronic blood loss documented as of this encounter Visit Diagnoses Not on filedocumented in this encounter Additional Health Concerns Infection Onset Date Last Indicated Resolved Time MRSA 01/06/2020 01/06/2020 02/06/2021 5:00 AM CDT documented as of this encounter Care Teams Asbestos Remover Relationship Specialty Start Date End Date Cherelle Corcoran MD PCP - General Family Medicine 08/30/19 Mark Queen MD Consulting Physician Infectious Diseases 01/10/20 documented as of this encounter
--- OUTSIDE RECORDS SUMMARY | 2024-07-04 04:22 | XMS_ITS | Encounter Summary ---
Author Organization [facility] Healthcare Address [address] [place] [address] Care Team Providers Care Straddle Bug Name Role Phone Cherelle Corcoran MD Primary Care Pro vider Mark Queen MD Unavailable [phone] Encounter Details Date Type Department Care Team (Late st Contact Info) Description 01/23/2020 11:40 AM CDT Lab [address] [address] Social History Tobacco Use Types Packs/Day Years Used Date Smoking Tobacco: Never Smokeless Tobacco: Never Alcohol Use Standard Drinks/Week Comments Not Currently 0 (1 standard drink = 0.6 oz pur e alcohol) PHQ-2 Answer Date Recorded PHQ-2 Total Score 0 01/17/2020 Comments No Sex and Gender Information Value Date Recorded Sex Assigned at Not on file Legal Sex Female 9:03 AM BOTTLE HOUSE QUALITY CONTROL TECHNICIAN Gender Identity Female 02/08/2020 6:39 PM CDT Sexual Orientation Not on file documented as of this encounter Plan of Treatment Upcoming Encounters Date Type Department Care Team (Latest Contact Info) Description 07/13/2024 9:00 AM BOTTLE HOUSE QUALITY CONTROL TECHNICIAN Hospital Encounter [facility] GI Lab [address] [place] [address] Jaya Grier MD [address] [address] 07/13/2024 9:00 AM BOTTLE HOUSE QUALITY CONTROL TECHNICIAN - 07/13/2024 9:30 AM BOTTLE HOUSE QUALITY CONTROL TECHNICIAN Surgery [facility] GI Lab [address] [place] [address] Jaya Grier MD [address] [facility] [place] [address] [place] [address] ESOPHAGOGASTRODUODENOSCOPY Scheduled Procedures Name Priority Associated Diagnoses Date/Ti me ESOPHAGOGASTRODUODENOSCOPY Anemia, unspecified type Gastritis without bleeding, unspecified chronicity, unspecified gastritis type 07/13/2024 9:00 AM BOTTLE HOUSE QUALITY CONTROL TECHNICIAN COLONOSCOPY Iron deficiency anemia due to chronic blood loss documented as of this encounter Procedures Procedure Name Priority Date/Time Associated Diagnosis Comments EGFR STAT 01/23/2020 9:00 AM CDT DIFFERENTIAL AUTO STAT 01/23/2020 9:0 0 AM CDT CBC WITH AUTO DIFFERENTIAL STAT 01/23/2020 9:00 AM CDT ERYTHROCYTE SEDIMENTATION RATE STAT 01/23/2020 9:00 AM CDT VANCOMYCIN LEVEL TROUGH STAT 01/23/2020 9:00 AM CDT COMPREHENSIVE METABOLIC PANEL STAT 01/23/2020 9:00 AM CDT documented in this encounter Results * eGFR (01/23/2020 9:00 AM CDT) eGFR 52 mL/min/1.7 3 m2 [facility] ([place]) Comment: Interpretive Data Reference Interval Normal ?>/= 90 mL/min/1.73m2 Mildly decreased* ? 60 - 89 mL/min/1.73m2 Mildly to moderately decreased ?45 - 59 mL/min/1.73m2 Moderately to severely decreased ??30 - 44 mL/min/1.73m2 Severely decreased ?15 - 29 mL/min/1.73m2 Kidney Failure ?< 15 ??mL/min/1.73m2 *Relative to young adult level If -Croatian multiply value by 1.16. Estimated glomerular filtration [...] was last reviewed 2016. Blood specimen (specimen) 01/23/2020 9:00 AM CDT 01/23/2020 11:42 AM CDT us Mark Queen MD LAB BLOOD ORDERABLES Final Result [facility] ([place] 1 [facility] [place] [address] * Differential, auto (01/23/2020 9:00 AM CDT) Neutrophil abs 4.8 1.7 - 6.5 K/cumm [facility] ([place]) Imm gran abs 0.0 0.0 - 0.1 K/cumm [facility] ([place]) Lymphocyte abs 1.6 0.8 - 3.3 K/cumm [facility] ([place]) Monocyte abs 0.5 0.2 - 0.8 K/cumm [facility] ([place]) Eosinophil abs 0.3 0.0 - 0.5 K/cumm [facility] ([place]) Basophil abs 0.1 0.0 - 0.1 K/cumm [facility] ([place]) Neutrophil pct 66.4 % [facility] ([place]) Comment: Interpretive Data Percent cell count reference ranges are not reported, since discordance with absolute values may lead to misinterpretation of CBC data. Current Interpretive Data was last revised on 2017. Imm gran pct 0.1 % [facility] ([place]) Comment: Interpretive Data Percent cell count reference ranges are not reported, since discordance with absolute values may lead to misinterpretation of CBC data. Current Interpretive Data was last revised on 2017. Lymphocyte pct 21.6 % [facility] ([place]) Comment: Interpretive Data Percent cell count reference ranges are not reported, since discordance with absolute values may lead to misinterpretation of CBC data. Current Interpretive Data was last revised on 2017. Monocyte pct 7.1 % [facility] ([place]) Comment: Interpretive Data Percent cell count reference ranges are not reported, since discordance with absolute values may lead to misinterpretation of CBC data. Current Interpretive Data was last revised on 2017. Eosinophil pct 3.8 % [facility] ([place]) Comment: Interpretive Data Percent cell count reference ranges are not reported, since discordance with absolute values may lead to misinterpretation of CBC data. Current Interpretive Data was last revised on 2017. Basophil pct 1.0 % [facility] ([place]) Comment: Interpretive Data Percent cell count reference ranges are not reported, since discordance with absolute values may lead to misinterpretation of CBC data. Current Interpretive Data was last revised on 2017. Blood specimen (specimen) 01/23/2020 9:00 AM CDT 01/23/2020 11:42 AM CDT us Mark Queen MD LAB BLOOD ORDERABLES Final Result [facility] ([place]) 1 [facility] [place] [address] * (ABNORMAL) Erythrocyte sedimentation rate (01/23/2020 9:00 AM CDT) Erythrocyte sedimentation rate 145(H) 1 - 30 mm/hr [facility] ([place]) Blood specimen (specimen) 01/23/2020 9:00 AM CDT 01/23/2020 11:42 AM CDT us Mark Queen MD LAB BLOOD ORDERABLES Final Result [facility] ([place]) 1 [facility] [place] [address] * (ABNORMAL) CBC with auto differential (01/23/2020 9:00 AM CDT) Pathologist [facility] WBC 7.3 3.8 - 9.9 K/cumm [facility] ([place]) Hgb 8.2(L) 11.9 - 15.5 g/dL [facility] ([place]) Hct 27.0(L) 35.6 - 45.5 % [facility] ([place]) Plt 585(H) 150 - 400 K/cumm [facility] ([place]) MPV 9.7 9.1 - 12.3 fL [facility] ([place]) RBC 2.86(L) 3.90 - 5.20 M/cumm [facility] ([place]) MCV 94.4 81.3 - 96.4 fL [facility] ([place]) MCH 28.7 27.1 - 33.3 pg [facility] ([place]) MCHC 30.4(L) 32.3 - 35.7 g/dL [facility] ([place]) RDW CV 15.9(H) 11.1 - 14.9 % [facility] ([place]) RDW SD 55.0(H) 35.7 - 48.1 fL [facility] ([place]) NRBC abs 0.00 0.00 - 0.01 K/cumm [facility] ([place]) Blood specimen (specimen) 01/23/2020 9:00 AM CDT 01/23/2020 11:42 AM CDT us Mark Queen MD LAB BLOOD ORDERABLES Final Result [facility] ([place] 1 [facility] [place] [address] * (ABNORMAL) Vancomycin, trough (01/23/2020 9:00 AM CDT) Pathologist [facility] Vancomycin trough 22.2(H) 15.0 - 20.0 mcg/mL [facility] ([place]) Comment: Intepretive Data Therapeutic range: ??15 - 20 mcg/ml Current interpretive data was last revised on 2014 Blood specimen (specimen) 01/23/2020 9:00 AM CDT 01/23/2020 11:42 AM CDT us Mark Queen MD LAB BLOOD ORDERABLES Final Result [facility] ([place]) 1 [facility] [place] [address] * (ABNORMAL) Comprehensive metabolic panel (01/23/2020 9:00 AM CDT) Sodium 142 135 - 145 mmol/L [facility] ([place]) Potassium, pl 3.6 3.3 - 4.9 mmol/L [facility] ([place]) Chloride 102 97 - 110 mmol/L [facility] ([place]) CO2 26 22 - 32 mmol/L [facility] ([place]) Anion gap 15 2 - 15 mmol/L [facility] ([place]) BUN 19 8 - 25 mg/dL [facility] ([place]) Creatinine 1.08 0.60 - 1.10 mg/dL [facility] ([place]) Glucose 157 70 - 199 mg/dL [facility] ([place]) [...] 5.0 g/dL [facility] ([place]) Alk phos 269(H) 40 - 130 Units/L [facility] ([place] ALT 20 7 - 45 Units/L [facility] ([place]) AST 33 10 - 45 Units/L [facility] ([place]) Blood specimen (specimen) 01/23/2020 9:00 AM CDT 01/23/2020 11:42 AM CDT us Mark Queen MD LAB BLOOD ORDERABLES Final Result [facility] ([place]) 1 [facility] [place] [address] documented in this encounter Visit Diagnoses Not on filedocumented in this encounter Additional Health Concerns Infection Onset Date Last Indicated Resolved Time MRSA 01/06/2020 01/06/2020 02/06/2021 5:00 AM CDT documented as of this encounter Care Teams Straddle Bug Relationship Specialty Start Date End Date Cherelle Corcoran MD PCP - General Family Medicine 08/30/19 Mark Queen MD Consulting Physician Infectious Diseases 01/10/20 documented as of this encounter
--- OUTSIDE RECORDS SUMMARY | 2024-07-04 04:22 | XMS_ITS | Encounter Summary ---
Author Organization [facility] Home Care Servic es Address [address] [place] [address] Phone Care Team Providers Care Web Content Director Name Role Phone Cherelle Corcoran MD Primary Care Pro vider Mark Queen MD Unavailable [phone] Reason for Visit * Auth/Cert Specialty Diagnoses / Procedures Referred By Maryse t Referred To Contact Referral ID Status Reason Start Date Expiration Date Visits Re quested Visits Authorized [id number] 1 1 Encounter Details Date Type Department Care Team (Late st Contact Info) Description 01/31/2020 Home Care Visit [facility] Home Health [address] [place] [address] [address] [place] [address] Bonita Darby TELEGRAPHIC TYPEWRITER OPERATOR SCREENING CASE COMMUNICATION Social History Tobacco [...] on file Legal Sex Female 9:03 AM FINANCIAL OPERATIONS CONSULTANT Gender Identity Female 02/08/2020 6:39 PM CDT Sexual Orientation Not on file documented as of this encounter Plan of Treatment Upcoming Encounters Date Type Department Care Team (Latest Contact Info) Description 07/13/2024 9:00 AM FINANCIAL OPERATIONS CONSULTANT Hospital Encounter [facility] GI Lab [address] [place] [address] Jaya Grier MD [address] [facility] [address] [place] [address] 07/13/2024 9:00 AM FINANCIAL OPERATIONS CONSULTANT - 07/13/2024 9:30 AM FINANCIAL OPERATIONS CONSULTANT Surgery [facility] GI Lab [address] [place] [address] Jaya Grier MD [address] [facility] [address] [place] [address] ESOPHAGOGASTRODUODENOSCOPY Scheduled Procedures Name Priority Associated Diagnoses Date/Ti me ESOPHAGOGASTRODUODENOSCOPY Anemia, unspecified type Gastritis without bleeding, unspecified chronicity, unspecified gastritis type 07/13/2024 9:00 AM FINANCIAL OPERATIONS CONSULTANT COLONOSCOPY Iron deficiency anemia due to chronic blood loss documented as of this encounter Visit Diagnoses Not on filedocumented in this encounter Additional Health Concerns Infection Onset Date Last Indicated Resolved Time MRSA 01/06/2020 01/06/2020 02/06/2021 5:00 AM CDT documented as of this encounter Care Teams Web Content Director Relationship Specialty Start Date End Date Cherelle Corcoran MD PCP - General Family Medicine 08/30/19 Mark Queen MD Consulting Physician Infectious Diseases 01/10/20 documented as of this encounter
--- OUTSIDE RECORDS SUMMARY | 2024-07-04 04:23 | XMS_ITS | Encounter Summary ---
Author Organization [facility] Home Care Servic es Address [address] [place] [address] Phone Care Team Providers Care Roll Clamp Operator Name Role Phone Cherelle Corcoran MD Primary Care Pro vider Mark Queen MD Unavailable [phone] Reason for Visit * Auth/Cert Specialty Diagnoses / Procedures Referred By Maryse t Referred To Contact Referral ID Status Reason Start Date Expiration Date Visits Re quested Visits Authorized [id number] 1 1 Encounter Details Date Type Department Care Team (Late st Contact Info) Description 01/12/2020 Home Care Visit [facility] Home Health [address] [address] [address] [place] [address] Maddie Rojas, RESPIRATORY SUPERVISOR SCREENING CASE COMMUNICATION Social History Tobacco Use Types Packs/Day Years Used Date Smoking Tobacco: Never Smokeless Tobacco: Never Alcohol Use Standard Drinks/Week Comments Not Currently 0 (1 standard drink = 0.6 oz pur e alcohol) PHQ-2 Answer Date Recorded PHQ-2 Score 2 01/04/2020 Comments No Sex and Gender Information Value Date Recorded Sex Assigned at Not on file Legal Sex Female 9:03 AM RELOCATION SPECIALIST Gender Identity Female 02/08/2020 6:39 PM CDT Sexual Orientation Not on file documented as of this encounter Plan of Treatment Upcoming Encounters Date Type Department Care Team (Latest Contact Info) Description 07/13/2024 9:00 AM RELOCATION SPECIALIST Hospital Encounter [facility] GI Lab [address] [place] [address] Jaya Grier MD [address] [facility] [address] [place] [address] 07/13/2024 9:00 AM RELOCATION SPECIALIST - 07/13/2024 9:30 AM RELOCATION SPECIALIST Surgery [facility] GI Lab [address] [place] [address] Jaya Grier MD [facility] [address] [place] [address] ESOPHAGOGASTRODUODENOSCOPY Scheduled Procedures Name Priority Associated Diagnoses Date/Ti me ESOPHAGOGASTRODUODENOSCOPY Anemia, unspecified type Gastritis without bleeding, unspecified chronicity, unspecified gastritis type 07/13/2024 9:00 AM RELOCATION SPECIALIST COLONOSCOPY Iron deficiency anemia due to chronic blood loss documented as of this encounter Visit Diagnoses Not on filedocumented in this encounter Additional Health Concerns Infection Onset Date Last Indicated Resolved Time MRSA 01/06/2020 01/06/2020 02/06/2021 5:00 AM CDT documented as of this encounter Care Teams Roll Clamp Operator Relationship Specialty Start Date End Date Cherelle Corcoran MD PCP - General Family Medicine 08/30/19 Mark Queen MD Consulting Physician Infectious Diseases 01/10/20 documented as of this encounter
--- OUTSIDE RECORDS SUMMARY | 2024-07-04 04:23 | XMS_ITS | Encounter Summary ---
Author Organization [facility] Home Care Servic es Address [address] [place] [address] Phone Care Team Providers Care Public Health Clinical Nurse Specialist Name Role Phone Cherelle Corcoran MD Primary Care Pro vider Mark Queen MD Unavailable [phone] Reason for Visit * Auth/Cert Specialty Diagnoses / Procedures Referred By Maryse lama Referred To Contact Referral ID Status Reason Start Date Expiration Date Visits Re quested Visits Authorized [id number] 1 1 Encounter Details Date Type Department Care Team (Latest Contact Info) Description 01/12/2020 5:00 AM CDT Home Care Visit [facility] Home Health [address] [address] [address] [place], [place] [id number] Brigid Keenan RN SN OASIS RESUMPTION OF CARE Social History Tobacco [...] on file Legal Sex 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 Gender Identity Female 02/08/2020 6:39 PM CDT Sexual Orientation Not on file documented as of this encounter Last Filed Vital Signs Vital Sign Reading Time Taken Comments Blood Pressure 140/70 01/12/2020 9:21 AM CDT Pulse 97 01/12/2020 9:21 AM CDT Temperature 36.6 ??C (97.9 ??F) 01/12/2020 9:21 AM CD T Respiratory Rate 18 01/12/2020 9:21 AM CDT Oxygen Saturation 97% 01/12/2020 9:21 AM CDT Inhaled Oxygen Concentration - - Weight 74.8 kg (165 lb) 01/12/2020 9:21 AM CDT Height - - Body Mass Index 30.17 01/05/2020 8:49 AM CDT documented in this encounter Plan of Treatment Upcoming Encounters Date Type Department Care Team (Latest Contact Info) Description 07/13/2024 9:00 AM REFINING STILL OPERATOR Hospital Encounter [facility] GI Lab [address] [place] [address] Jaya Grier MD [address] [place] [address] [address] [place] [address] 07/13/2024 9:00 AM REFINING STILL OPERATOR - 07/13/2024 9:30 AM REFINING STILL OPERATOR Surgery [facility] GI Lab [address] [place] [address] Jaya Grier MD [address] [place] [address] [address] [place] [address] ESOPHAGOGASTRODUODENOSCOPY Scheduled Procedures Name Priority Associated Diagnoses Date/Ti in ESOPHAGOGASTRODUODENOSCOPY Anemia, unspecified type Gastritis without bleeding, unspecified chronicity, unspecified gastritis type 07/13/2024 9:00 AM REFINING STILL OPERATOR COLONOSCOPY Iron deficiency anemia due to chronic blood loss documented as of this encounter Visit Diagnoses Not on filedocumented in this encounter Additional Health Concerns Infection Onset Date Last Indicated Resolved Time MRSA 01/06/2020 01/06/2020 02/06/2021 5:00 AM CDT documented as of this encounter Home Health Visit - Care Plan Visit Details Visit Type -SN OASIS Resumpt ion of Care Discipline -Detention Problems Problem Description Start Date Status Goals Interve ntions Homebound Status Disciplines: Detention Patient's homebound status 10/23/2019 Active 1 goal linked to scheduled/documen bruno intervention 1 goal intervention scheduled/document ed in this visit Monitor patient's vital signs every home health visit Disciplines: Detention Monitor patient's vital signs every home health visit. 10/23/2019 Active 1 goal linked to scheduled/documen bruno intervention 1 goal intervention scheduled/document ed in this visit Infection Prevention Disciplines: Detention Infection Prevention 10/23/2019 Active 1 goal linked to scheduled/documen bruno intervention 1 goal intervention scheduled/document ed in this visit Wound Risk of Infection Disciplines: Detention Risk of infections related to wounds 10/23/2019 Active 1 goal linked to scheduled/documen bruno intervention 1 goal intervention scheduled/document ed in this visit Wound Education and Management Disciplines: Detention 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 10/23/2019 Active 1 goal linked to scheduled/documen bruno intervention 1 goal intervention scheduled/document ed in this visit Wound Care Disciplines: Detention Wound care needed 10/23/2019 Active - 2 problem interventions scheduled/document ed in this visit IV Therapy-Managem ent, Education, and Maintenance Disciplines: Detention Teaching and learning needs for performing home IV therapy 01/12/2020 Active - 2 problem interventions scheduled/document ed in this visit Goals Goal Associated Problem Outcome Goal Met? Visit Notes Patient recieves care at the most appropriate care setting Description: Patient receives care at the most appropriate care setting. Homebound Status No Measure vital signs during every home health visit during episode of care Description: Home grease monkey to measure vital signs during every home [...] medical attention Wound Education and Management No Interventions Intervention Associated Problem/Goal Status Variance [...] Goal:Verbalize signs of infection Completed Patient and family verbalize understanding Instruct patient/family/caregi juliet on infection control and safe disposal of dressing materials Description: Instruct patient/caregiver on how to recognized signs and symptoms of infection and when to notify SHEEP RANCHER and/or physician per Wound Education Booklet. Instruct [...] bag, seal, and place in regular trash. Educate on Wound Care Management Description: Instruct patient/caregiver on wound care per MD orders per Wound Education Booklet, may include written directions and or photos for patient/caregiver education. Problem:Wound Education and Management Goal:Knowledgeable on Woundcare Completed Daughter Ursula returns correct demo Perform wound care Description: 12/22/19 cleanse ulcer to right foot with wound cleanser apply xeroform dry gauze wrap with kerlix and feliciano wrap. daily and prn for excessive drainage or becomes dislodged. w.o. dr ricardo echeverria/aleksandr casiano Problem:Wound Care Completed Wound care has changed Wound care Description: SN/CG to perform wound care on Right 4th toe site every other day and prn for drainage. Cleanse with wound cleanser, apply iodoflex, mepilex transfer, cover with 4x4's, wrap with conform and coban to secure. Written discharge orders. Problem:Wound Care Completed Patient tolerated well PICC Line Description: Skilled Nurse to instruct patient/caregiver on how to properly administer medication saline and heparin. Skilled Nurse to instruct patient/caregiver to administer IV medication as ordered including saline and heparin flushes. Reason for Therapy: Osteomyelitis. Vancomycin 1.75 gm for a total of 2 syringes every 24 hours. Each syringe to infuse over [address]. Problem:IV Therapy-Management, Education, and Maintenance Completed Daughter Ursula returns correct demo Implanted Venous Access Device (PORT) In Use Description: Instruct patient/caregiver in how to perform flushing of IV line according to MD orders or protocol. Problem:IV Therapy-Management, Education, and Maintenance Completed Daughter Ursula returns correct demo documented in this encounter Home Health Visit - Actions and Narratives Narratives M1028 - Comorbidities and Co -existing Conditions Recommendation: 2 - Diabetes Mellitus M1850 - Transferring Documented Answer: 1 - Able to transfer with minimal human assistance or with use of an assistive device. Recommendation: 2 - Able to bear weight and pivot during the transfer but unable to transfer self. Clinical documentation reflects that the patient requires the use of an assistive device and human assistance to safely transfer. Per OASIS guidance the patient would score a 2 on this item. KL5817 - Prior Functioning: Everyday Activities: Indicate the patient? s usual ability with everyday activities prior to the current illness, exacerbation, or injury. Based on the documentation, the patient required partial human assistance with these activities prior to the current illness, exacerbation, or injury. Patient needs prompting. [id number] - Functional Cognition: Code the patient? s need for assistance with planning regular tasks, such as shopping or remembering to take medication prior to the current illness, exacerbation, or injury. Documented Answer: 3. Independent ? Patient completed the activities by him/herself, with or without an assistive device, with no assistance from a helper Recommendation: 2. Needed Some Help ? Patient needed partial assistance from another person to complete activities. 01/19/20 -SUZY Garcia Chart review and recommendations completed by:Sussy Ramos CCS documented in this encounter Care Teams Public Health Clinical Nurse Specialist Relationship Specialty Start Date End Date Cherelle Corcoran MD PCP - General Family Medicine 08/30/19 Mark Queen MD Consulting Physician Infectious Diseases 01/10/20 documented as of this encounter
--- OUTSIDE RECORDS SUMMARY | 2024-07-04 04:23 | XMS_ITS | Encounter Summary ---
Author Organization [facility] Address [address] [place] [address] Phone Care Team Providers Care Plant Mechanic Name Role Phone Cherelle Corcoran MD Primary Care Pro vider Mark Queen MD Unavailable [phone]- [phone] Reason for Visit * Auth/Cert Specialty Diagnoses / Procedures Referred By Mayrse lama Referred To Contact Referral ID Status Reason Start Date Expiration Date Visits Re quested Visits Authorized [id number] 1 1 Encounter Details Date Type Department Care Team (Late st Contact Info) Description 01/14/2020 Home Care Visit [facility] Home Health - [address] [address] [address] [place] [address] Ceci Wood RN TELEPHONE ENCOUNTER Social History Tobacco Use [...] file Legal Sex Female 9:03 AM INSURANCE POLICY ISSUE CLERK Gender Identity Female 02/08/2020 6:39 PM CDT Sexual Orientation Not on file documented as of this encounter Plan of Treatment Upcoming Encounters Date Type Department Care Team (Latest Contact Info) Description 07/13/2024 9:00 AM INSURANCE POLICY ISSUE CLERK Hospital Encounter [facility] [address] [place] [address] Jaya Grier MD [address] [place] [address] 07/13/2024 9:00 AM INSURANCE POLICY ISSUE CLERK - 07/13/2024 9:30 AM INSURANCE POLICY ISSUE CLERK Surgery [facility] [address] [place] [address] Jaya Grier MD [address] [place] [address] ESOPHAGOGASTRODUODENOSCOPY Scheduled Procedures Name Priority Associated Diagnoses Date/Ti me ESOPHAGOGASTRODUODENOSCOPY Anemia, unspecified type Gastritis without bleeding, unspecified chronicity, unspecified gastritis type 07/13/2024 9:00 AM INSURANCE POLICY ISSUE CLERK COLONOSCOPY Iron deficiency anemia due to chronic blood loss documented as of this encounter Visit Diagnoses Not on filedocumented in this encounter Additional Health Concerns Infection Onset Date Last Indicated Resolved Time MRSA 01/06/2020 01/06/2020 02/06/2021 5:00 AM CDT documented as of this encounter Care Teams Plant Mechanic Relationship Specialty Start Date End Date Cherelle Corcoran MD PCP - General Family Medicine 08/30/19 Mark Queen MD Consulting Physician Infectious Diseases 01/10/20 documented as of this encounter
--- OUTSIDE RECORDS SUMMARY | 2024-07-04 04:23 | XMS_ITS | Encounter Summary ---
Author Organization [facility] Address [address] [place] [address] Phone Care Team Providers Care Outbound Call Center Representative Name Role Phone Cherelle Corcoran MD Primary Care Pro vider Mark Queen MD Unavailable [phone]- [phone] Reason for Visit * Auth/Cert Specialty Diagnoses / Procedures Referred By Maryse t Referred To Contact Referral ID Status Reason Start Date Expiration Date Visits Re quested Visits Authorized [id number] 1 1 Encounter Details Date Type Department Care Team (Late st Contact Info) Description 01/12/2020 Home Care Visit [facility] Home Health - [address] [address] [address] [place] [address] Brigid Keenan, NEWSPAPER JOURNALIST SCREENING CASE COMMUNICATION Social History Tobacco Use Types Packs/Day Years Used Date Smoking Tobacco: Never Smokeless Tobacco: Never Alcohol Use Standard Drinks/Week Comments Not Currently 0 (1 standard drink = 0.6 oz pur e alcohol) PHQ-2 Answer Date Recorded PHQ-2 Score 2 01/04/2020 Comments No Sex and Gender Information Value Date Recorded Sex Assigned at Not on file Legal Sex Female 9:03 AM BINDER CUTTER Gender Identity Female 02/08/2020 6:39 PM CDT Sexual Orientation Not on file documented as of this encounter Plan of Treatment Upcoming Encounters Date Type Department Care Team (Latest Contact Info) Description 07/13/2024 9:00 AM BINDER CUTTER Hospital Encounter [facility] [address] [place] [address] Jaya Grier MD [address] [place] [address] 07/13/2024 9:00 AM BINDER CUTTER - 07/13/2024 9:30 AM BINDER CUTTER Surgery [facility] [address] [place] [address] Jaya Grier MD [facility] [place] [address] ESOPHAGOGASTRODUODENOSCOPY Scheduled Procedures Name Priority Associated Diagnoses Date/Ti me ESOPHAGOGASTRODUODENOSCOPY Anemia, unspecified type Gastritis without bleeding, unspecified chronicity, unspecified gastritis type 07/13/2024 9:00 AM BINDER CUTTER COLONOSCOPY Iron deficiency anemia due to chronic blood loss documented as of this encounter Visit Diagnoses Not on filedocumented in this encounter Additional Health Concerns Infection Onset Date Last Indicated Resolved Time MRSA 01/06/2020 01/06/2020 02/06/2021 5:00 AM CDT documented as of this encounter Care Teams Outbound Call Center Representative Relationship Specialty Start Date End Date Cherelle Corcoran MD PCP - General Family Medicine 08/30/19 Mark Queen MD Consulting Physician Infectious Diseases 01/10/20 documented as of this encounter
--- OUTSIDE RECORDS SUMMARY | 2024-07-04 04:23 | XMS_ITS | Encounter Summary ---
Author Organization [facility] Healthcare Address [address] [place] [address] Care Team Providers Care Crane Follower Name Role Phone Cherelle Corcoran MD Primary Care Pro vider Erna Anthony MD Unavailable [phone] Encounter Details Date Type Department Care Team (Latest Contact Info) Description 01/04/2020 5:43 PM CDT - 01/11/2020 6:00 PM CDT Hospital Encounter [facility] [address] [place] [address] Mathew Mccullough MD [address] [place] [address] [place] [address] Zahra Corona MD [address] [place] [address] Osteomyelitis ([facility]) Discharge Disposition: Discharge to home, home health [...] on file 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 Gender Identity Female 02/08/2020 6:39 PM CDT Sexual Orientation Not on file documented as of this encounter Last Filed Vital Signs Vital Sign Reading Time Taken Comments Blood Pressure 142/55 01/11/2020 3:04 PM CDT Pulse 76 01/11/2020 3:04 PM CDT Temperature 36.3 ??C (97.3 ??F) 01/11/2020 3:04 PM CD T Respiratory Rate 16 01/11/2020 3:04 PM CDT Oxygen Saturation 92% 01/11/2020 3:04 PM CDT Inhaled Oxygen Concentration - - Weight 57.1 kg (125 lb 12.8 oz) 020 11:10 PM CDT Height 157.5 cm (5' 2.01 ) 01/05/2020 8:49 AM CD T Body Mass Index 23 01/04/2020 11:10 PM CDT documented in this encounter Discharge Diagnoses Diagnosis Sepsis, unspecified organism (HCC) - SEPSIS, UNSPECIFIED ORGANISM Other acute osteomyelitis, right ankle and foot ([facility]) - OTHER ACUTE OSTEOMYELITIS, RIGHT ANKLE AND FOOT Type 2 diabetes mellitus with diabetic peripheral angiopathy with gangrene (HCC) - TYPE 2 DIABETES MELLITUS WITH DIABETIC PERIPHERAL ANGIOPATHY WITH GANGRENE Contact with and (suspected) exposure to other viral communicable diseases - CONTACT WITH AND (SUSPECTED) EXPOSURE TO OTHER VIRAL COMMUNICABLE DISEASES Methicillin resistant Staphylococcus aureus infection as the cause of diseases classified elsewhere - METHICILLIN RESISTANT STAPHYLOCOCCUS AUREUS INFECTION THE CAUSE OF DISEASES CLASSIFIED ELSEWHERE Anemia in other chronic diseases classified elsewhere - ANEMIA IN OTHER CHRONIC DISEASES CLASSIFIED ELSEWHERE (MANIFESTATION) Type 2 diabetes mellitus with diabetic polyneuropathy (HCC) - TYPE 2 DIABETES MELLITUS WITH DIABETIC POLYNEUROPATHY Type 2 diabetes mellitus with foot ulcer (CODE) ([facility]) - TYPE 2 DIABETES MELLITUS WITH FOOT ULCER Type 2 diabetes mellitus with hyperglycemia (CMS/HCC) (HCC) - TYPE 2 DIABETES MELLITUS WITH HYPERGLYCEMIA Type 2 diabetes mellitus with other specified complication (HCC) - TYPE 2 DIABETES MELLITUS WITH OTHER SPECIFIED COMPLICATION 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 (current) use of insulin (HCC) - SENIOR CARE (CURRENT) USE OF INSULIN Schizophrenia, unspecified (HCC) - SCHIZOPHRENIA, UNSPECIFIED Essential (primary) hypertension - ESSENTIAL (PRIMARY) HYPERTENSION Unspecified essential hypertension Non-pressure chronic ulcer of other part of right foot with unspecified severity ([facility]) - NON-PRESSURE CHRONIC ULCER OF OTHER PART OF RIGHT FOOT WITH UNSPECIFIED SEVERITY Major depressive disorder, single episode, unspecified - MAJOR DEPRESSIVE DISORDER, SINGLE EPISODE, UNSPECIFIED Fever, unspecified - FEVER, UNSPECIFIED documented in this encounter Discharge Summaries * Zahra Corona MD - 01/11/2020 4:58 PM CDT [place], [place] Hospitalist Discharge Summary Patient Name: Sixto Chakraborty Patient : 1950 Room/Bed: [id number] Admission Date/Time: 01/04/2020 5:43 PM Discharge date: 01/11/2020 Admitting Physician: Mathew Mccullough MD Discharge Physician: Zahra Corona MD Consults: Treatment Team: Consulting Physician: Erna Anthony MD; Consulting Physician: Agus Golden DPM; Consulting Physician: Anat Pelayo DPM Discharge Diagnoses: Principal Problem: Acute osteomyelitis of toe of right foot (CMS/HCC) Active Problems: Schizophrenia (CMS/HCC) Diabetic neuropathy (CMS/HCC) Uncontrolled type 2 diabetes mellitus with hyperglycemia (CMS/HCC) Ulcer of toe of right foot, with fat layer exposed (CMS/HCC) Essential hypertension Presenting Problem/History of Present Illness: Acute osteomyelitis of toe of right foot (CMS/HCC) For full details of presentation including detailed history, past medical, surgical, social, familyhistory and detailed ROS, as well as detailed exam and labs at time of presentation, please see theHistory and Physical. Hospital Course: 69yo female with history of diabetes, schizophrenia, diabetic foot culture transferred from wound care clinic due to gangrene. Recent mri was concerned for 4th toe osteomyelitis. Amputation of the 4th right toe with wound debridement and biopsy was done on 01/[address] Pelayo. She has MRSA growth. Do Perez recommends 6 weeks of iv vancomycin. Family has opted for home health instead of SNF. Follow up in ID and wound care clinics. Discharge held on 01/09 per family request and unfortunately cannot be held until Thursday or Thursday. She was ruled out for dvt. Dressing changes will be done every other day starting on . Issues Requiring Follow-up at Discharge and Test Results Pending at Discharge: Pending Labs Order Current Status Tissue aerobic and anaerobic culture and gram stain Bone Toe, fourth, right Preliminary result Discharge Exam: Vitals: 01/10/20 1545 01/10/20 2319 01/11/20 0750 01/11/20 1504 BP: (!) 176/73 141/52 156/67 142/55 BP Location: Right arm Right arm Right arm Right arm Patient Position: Sitting Lying Lying Lying Pulse: 108 90 91 76 Resp: Temp: 37.1 ??C (98.8 ??F) 36.7 ??C (98.1 ??F) 36.9 ??C (98.4 ??F) 36.3 ??C (97.3 ??F) TempSrc: Temporal Temporal Temporal Temporal SpO2: 95% 91% 92% 92% Weight: Height: General: awake, alert, oriented. No acute distress Eyes: pupils are equal, no scleral icterus Neck: supple Pharynx: No gross oral lesion Lungs: clear to auscultation with no wheezes or rales Heart: [id number] Abd: +BS, Non Tender, Non distended Lower Ext: mild right lower extremity edema, right foot dressing not removed Neuro: No new gross deficits appreciated Musculoskeletal: no gross joint erythema, tenderness Psychiatric: normal affect Labs: (last 48 hours): Recent Results (from the past 48 hour(s)) POCT glucose Collection Time: 01/09/20 8:23 PM Result Value Ref Range Glucose, POC 251 (H) 71 - 98 mg/dL POCT glucose Collection Time: 01/10/20 2:13 AM Result Value Ref Range Glucose, POC 122 (H) 71 - 98 mg/dL Vancomycin, trough Collection Time: 01/10/20 3:49 AM Result Value Ref Range Vancomycin, trough 13.4 (L) 15.0 - 20.0 mcg/mL Phosphorus Collection Time: 01/10/20 3:49 AM Result Value Ref Range Phosphorus, pl 3.4 2.3 - 4.5 mg/dL Magnesium Collection Time: 01/10/20 3:49 AM Result Value Ref Range Magnesium 2.2 1.4 - 2.5 mg/dL CRP (acute phase) Collection Time: 01/10/20 3:49 AM Result Value Ref Range C-RP 119.1 (H) <=10.0 mg/L POCT glucose Collection Time: 01/10/20 7:52 AM Result Value Ref Range Glucose, POC 81 71 - 98 mg/dL POCT glucose Collection Time: 01/10/20 11:53 AM Result Value Ref Range Glucose, POC 174 (H) 71 - 98 mg/dL POCT glucose Collection Time: 01/10/20 9:12 PM Result Value Ref Range Glucose, POC 276 (H) 71 - 98 mg/dL POCT glucose Collection Time: 01/11/20 2:23 AM Result Value Ref Range Glucose, POC 246 (H) 71 - 98 mg/dL Phosphorus Collection Time: 01/11/20 5:17 AM Result Value Ref Range Phosphorus, pl 3.3 2.3 - 4.5 mg/dL Magnesium Collection Time: 01/11/20 5:17 AM Result Value Ref Range Magnesium 2.2 1.4 - 2.5 mg/dL CBC with auto differential Collection Time: 01/11/20 5:17 AM Result Value Ref Range WBC 13.8 (H) 3.8 - 9.9 K/cumm Hgb 7.5 (L) 11.9 - 15.5 g/dL Hct 23.6 (L) 35.6 - 45.5 % Plt 425 (H) 150 - 400 K/cumm MPV 9.4 9.1 - 12.3 fL RBC 2.61 (L) 3.90 - 5.20 M/cumm MCV 90.4 81.3 - 96.4 fL MCH 28.7 27.1 - 33.3 pg MCHC 31.8 (L) 32.3 - 35.7 g/dL RDW CV 14.7 11.1 - 14.9 % RDW SD 48.1 35.7 - 48.1 fL NRBC abs 0.06 (H) 0.00 - 0.01 K/cumm Comprehensive metabolic panel Collection Time: 01/11/20 5:17 AM Result Value Ref Range Sodium 137 135 - 145 mmol/L Potassium, pl 4.1 3.3 - 4.9 mmol/L Chloride 103 97 - 110 mmol/L CO2 26 22 - 32 mmol/L Anion gap 7 2 - 15 mmol/L BUN 11 8 - 25 mg/dL Creatinine 0.90 0.60 - 1.10 mg/dL Glucose 247 (H) 70 - 199 mg/dL Calcium 8.8 8.5 - 10.3 mg/dL Bilirubin, total <0.2 0.1 - 1.2 mg/dL Protein, pl 6.9 6.5 - 8.5 g/dL Albumin 2.3 (L) 3.5 - 5.0 g/dL Alk phos 208 (H) 40 - 130 Units/L ALT 17 7 - 45 Units/L AST 22 10 - 45 Units/L CRP (acute phase) Collection Time: 01/11/20 5:17 AM Result Value Ref Range C-RP 112.3 (H) <=10.0 mg/L Differential, auto Collection Time: 01/11/20 5:17 AM Result Value Ref Range Neutrophil abs 10.6 (H) 1.7 - 6.5 K/cumm Imm gran abs 0.1 0.0 - 0.1 K/cumm Lymphocyte abs 2.0 0.8 - 3.3 K/cumm Monocyte abs 0.8 0.2 - 0.8 K/cumm Eosinophil abs 0.2 0.0 - 0.5 K/cumm Basophil abs 0.0 0.0 - 0.1 K/cumm Neutrophil pct 77.2 % Imm gran pct 0.9 % Lymphocyte pct 14.4 % Monocyte pct 5.7 % Eosinophil pct 1.5 % Basophil pct 0.3 % eGFR Collection Time: 01/11/20 5:17 AM Result Value Ref Range GFR 65 mL/min/1.73 m2 Iron profile w/ IBC Collection Time: 01/11/20 5:17 AM Result Value Ref Range Iron 20 (L) 35 - 145 mcg/dL TIBC 144 (L) 250 - 400 mcg/dL Transferrin saturation 14 (L) 20 - 50 % Ferritin Collection Time: 01/11/20 5:17 AM Result Value Ref Range Ferritin 403 (H) 15 - 150 ng/mL POCT glucose Collection Time: 01/11/20 7:52 AM Result Value Ref Range Glucose, POC 242 (H) 71 - 98 mg/dL POCT glucose Collection Time: 01/11/20 11:49 AM Result Value Ref Range Glucose, POC 241 (H) 71 - 98 mg/dL Vancomycin, trough Collection Time: 01/11/20 4:01 PM Result Value Ref Range Vancomycin, trough 20.6 (H) 15.0 - 20.0 mcg/mL Diagnostic test and procedures: Xr Foot Right 3 Or More Views Result Date: 12/15/2019 Narrative: EXAMINATION: XR FOOT RIGHT 3 OR MORE VIEWS ORDERING HEALTHCARE PROVIDER: ISAEL DICK HISTORY: xr foot. 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 Patient poor historian, bandages placed. TECHNIQUE: Right foot 3 views. COMPARISON: None cornell ilable FINDINGS: BONES/JOINTS: The bone mineralization is normal. There is no acute fracture or dislocation. Oblique view, there is cortical indistinctness at the 1st distal phalangeal base and at the adjacent 1st proximal phalangeal head. These raise concern for osteomyelitis if there is overlyingsoft tissue ulceration. If this is of strong clinical concern, MRI could be considered. 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 SOFT TISSUES: No acute findings. No radiopaque foreign body. OTHER: Vascular calcifications. Impression: Cortical indistinctness at the 1st proximal phalangeal head and distal phalangeal base,raising concern for osteomyelitis if there is overlying skin ulceration. Electronically signed by: Eliseo Cedeño M.D. Mri Foot Right W Wo Contrast Result Date: 12/27/2019 Narrative: Patient Name: SIXTO CHAKRABORTY Ordering Dr: Guy Walsh MDOJonelB: 1950 Exam Date: 12/26/192044 Age: 69 Sex: Female MR#: [id number] Loc: RADIOLOGY REPORT Order #[id number] Magnetic Resonance Imaging MRI Foot Right W/WO Contrast Signed EXAM DESCRIPTION: MRI Foot Right W/WO Contrast REASON FOR STUDY: Wounds to dorsal/plantar surfaces between all toes. Wounds began in July shortly after getting nails trimmed. TECHNIQUE: Multiplanar, multisequence MRI of the right foot was performed before and after contrast. CONTRAST TYPE/DOSE: 11 cc Dotarem injected through the left antecubital fossa through a 23 gauge IV COMPARISON: None FINDINGS: Bones: Slightly fragmented appearance of the 1st distal phalanx, likely relatedto old injury. There is mild bone marrow edema at the 1st interphalangeal joint. There is subchondral cystic change about the 1st metatarsal head-likely degenerative in nature. There is T1 marrow signal replacement about the 4th proximal phalanx with associated bone marrow edema. Findings are concerning for osteomyelitis in the appropriate setting. There are similar but less pronounced findings at the 4th middle phalanx. The 4th distal phalanx demonstrate T1 marrow signal, however, has edema. This is likely reactive. There is additional bone marrow edema noted at the 2nd proximal and middle phalanx which is nonspecific and may be related to osteitis. Articulations: There is scattered osteoarthritis, most severe at the 1st metatarsophalangeal joint with subchondral cystic change about the 1st metatarsal head and opposing medial hallux sesamoid. Soft Tissues: Diffuse nonspecific soft tissue edema centered over dorsum of the foot. Diffuse plantar intramuscular edema. Small amount of intermetatarsal bursal fluid is noted at the 1st web space. Tendons: The flexor and extensor tendons areintact. Lisfranc Ligament: Intact. Post Contrast Findings: Enhancement is noted at the 1st distal phalanx, 2nd proximal, middle, and distal phalanges, 4th proximal mid and distal phalanx. A central portion of the 4th proximal phalanx appears to be nonenhancing which may be reflective of an area of chronic osteomyelitis. No identifiable fluid collection or abscess. Other: No other finding. IMPRESSION: 1. Abnormal T1 marrow signal within the 4th proximal and middle phalanx with associated edema. Findings are compatible with osteomyelitis. Given appearance of central nonenhancement within the 4th proximal phalanx, this may be related to an acute on chronic process. Recommend correlation with physical examination and clinical history. 2. Bone marrow edema is also noted about the 1st distal and 2nd proximal through distal phalanges without T1 signal replacement. Findings are likely related to reactive osteitis though early osteomyelitis is not excluded in the appropriate clinical setting and ulceration. 3. 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 THIS IS AN ELECTRONICALLY VERIFIED FINAL REPORT 12/27/2019 1:44 PM - Electronically signed by Naun BROWNE T: Report ID: [id number] Reading Location: [id number] ELECTRONICALLY SIGNED IN OTHER VENDOR SYSTEM Transthoracic Echo Complete W Doppler/cf Result Date: 01/09/2020 Narrative: [address] [address] Echocardiogram Report Patient Name: SIXTO CHAKRABORTY : 1950 Study Date: 01/09/202013:05:18 Gender: F Tech: AA Location: [id number] Ref.Provider: MATHEW MCCULLOUGH Height(Cm): BSA: Weight(Kg): Quality: Good Order Provider: EMILE ESCUDERO Procedures: Echocardiographic Report: Transthoracic echocardiogram with complete 2D, M-Mode, and color Doppler examination. Indications: Congestive Heart Failure. Measurements: 2D/M Mode Doppler Measurement Value Normal Range Measurement Value Normal Range EF Mod 4C 66.9 [ 55.0 - 70.0 ] percent CORNELL Vmax 2.39 [ 2.00 - 4.00 ] cm2 LVIDd 2D 3.00 [ 3.90 - 5.30 ] cm AV Mean PG 8 [ 2 - 4 ] mmHg LVIDs 2D 2.12 [ 2.30 - 3.90 ] cm AV Peak Lalit 1.90 [ 1.00 - 1.70 ] m/s LVPWd 2D 1.09 [ 0.60 - 1.00 ] cm AV VTI 41.26 cm IVSd 2D 1.15 [0.60 - 0.90 ] cm LVOT Diam 2.10 [ 1.70 - 2.10 ] cm LA Dimension 2D 4.03 [ 2.70 - 3.80 ] cm LVOT Peak Lalit 1.31 [ 0.70 - 1.10 ] m/s AoR Diam MM 2.71 [ 2.60 - 3.70 ] cm LVOT VTI 23.41 [ 20.00 - 30.00 ] cm ACS MM 1.94 cm MV E Peak Lalit 1.17 [ 0.60 - 1.30 ] m/s MV A Peak Lalit 1.07 [ 1.00 - 1.20 ] m/s MV Mean PG 3 [ <= 5 ] mmHg MV PHT 49 [ 20 - 100 ] msec MVA 2.20 MV Decel Time 170 [ 104 - 258 ] msec PV Peak Lalit 1.35 [ 0.40 - 0.80 ] m/s TR Peak Lalit 2.31 [ 1.00 - 2.80 ] m/s TR Peak PG 21 mmHg RVSP 26.00 [ 10.00 - 36.00 ] mmHg E' 0.08 E/E' 14.44 PA Pressure 5.00 [ 10.00 - 36.00 ] mmHg Findings: Atrial Septum: Normal atrial septum. Left Ventricle: Normal left ventricular systolic function with no focal wall motion abnormalities. Normal left ventricular size. Normal left ventricular diastolic function. Ejection fraction is visually estimated at 67 %. Left Atrium: The left atrium is normal in size. Normal left atrial pressure based on pulmonary vein inflow. Right Ventricle: Normal right ventricular size. Normal right ventricular systolic function. Right Atrium: The right atrium is normal in size. Aortic Valve: Normal structure of the aortic valve. No evidence of hemodynamically significant aortic stenosis by Doppler. No aortic regurgitation. Mitral Valve: Normal structure of the mitral valve. Trivial regurgitation of the mitral valve. Pulmonic Valve: Pulmonic valve not well visualized. No evidence of pulmonic regurgitation. Tricuspid Valve: Right Ventricular Systolic Pressure could not be estimated due to inadequate visualization of TR jet. Pericardium: Normal pericardium with no significant pericardial effusion. Aorta: Normal aortic root. IVC: Normal size and no respiratory collapse consistent with elevated right atrial pressure (5-10 mmHg). Conclusions: Normal left ventricularsystolic function with no focal wall motion abnormalities. Normal left ventricular size. Normal left ventricular diastolic function. Ejection fraction is visually estimated at 67 %. The left atrium is normal in size. Normal left atrial pressure based on pulmonary vein inflow. The right atrium is normal in size. Right Ventricular Systolic Pressure could not be estimated due to inadequate visualization of TR jet. Electronically Signed By: Dr Adryan Richmond 2020-01-09 15:42:03 CDT Us Arterial Doppler Lower Extremity Bilateral Result Date: 01/05/2020 Narrative: EXAMINATION: US ARTERIAL DOPPLER LOWER EXTREMITY BILATERAL ORDERING HEALTHCARE PROVIDER:EMILE ESCUDERO HISTORY: Atherosclerosis of [place] Arteries of Extremities with Intermittent Claudication, Bilateral Leg. Right foot ulcer for one month. COMPARISON: None available TECHNIQUE: Sonographic evaluation of the bilateral lower extremities with ankle-brachial index calculations. FINDINGS:The individual pressures are as follows: Right brachial artery: 115 mmHg. Right proximal thigh: 171mmHg. Right distal thigh: 158 mmHg. Right proximal le mmHg. Right posterior tibial artery: 137 mmHg. Right dorsalis pedis artery: 132 mmHg. Right ankle/brachial index: 1.19. There are multiphasic right posterior tibial artery waveforms. Left brachial artery: 109 mmHg. Left proximal thigh: 161mmHg. Left distal thigh: 148 mmHg. Left proximal le mmHg. Left posterior tibial artery: 128 mmHg. Left dorsalis pedis artery: 125 mmHg. Left ankle/brachial index: 1.11. There are multiphasic left posterior tibial artery waveforms. Impression: 1. Normal right ankle brachial index. 2. Normal left ankle brachial index. Electronically signed by: Eliseo Cedeño M.D. Procedure(s): AMPUTATION 4th toe right foot with wound debridement and bone biopsy. Medications: Sixto Chakraborty Home Medication Instructions OSCAR:[id number] Printed on:01/11/20 8614 Medication Information docusate sodium (COLACE) 100 mg capsule Take 1 capsule (100 mg total) by mouth 2 (two) times a day as needed for constipation ferrous sulfate 325 mg (65 mg of elemental iron) tablet Take 1 tablet (325 mg total) by mouth daily with breakfast gabapentin (NEURONTIN) 400 mg capsule Take 1 capsule (400 mg total) by mouth 3 (three) times a day HYDROcodone-acetaminophen (NORCO) 5-325 mg per tablet Take 1 tablet by mouth every 6 (six) hours as needed for pain insulin glargine (LANTUS,BASAGLAR) 100 unit/mL (3 mL) insulin pen Inject 30 Units under the skin nightly insulin syringe-needle U-100 (BD Insulin Syringe Ultra-Fine) 1 mL 31 gauge x 5/16 syringe 3 times a day lisinopriL (PRINIVIL,ZESTRIL) 10 mg tablet Take 1 tablet (10 mg total) by mouth daily pen needle, diabetic 32 gauge x 3/16 needle Once a day vancomycin 1,000 mg/200 mL piggyback Infuse 200 mL (1,000 mg total) into a venous catheter every 12 (twelve) hours Pharmacy to redose and manage level Victoza 2-Vivek 0.6 mg/0.1 mL (18 mg/3 mL) injection Inject 1.2 mg under the skin daily Discharge Instructions: Diet Instructions Adult Discharge Diet Diet Type: Return to previous diet Other Instructions Ambulatory referral to Home Health Service Line: Home Health and Infusion Primary disciplines requested: [facility] Home Health Services: Wound/ Ostomy Care Infusion Services: IV Antibiotics/Other Medications Comment: IV Vanco 1000mg Q12hr for 6 weeks, pharmacy to redose and manage levels. Physician to follow patient's care (the person listed here will be responsible for signing ongoing orders): PCP Requested Start of Care Date: Tomorrow Special instructions (labs, wound care, etc.): reinforce right foot dressing prn I attest that I or another qualified licensed provider saw the patient 90 days prior to or 30 days post admission and this face to face encounter meets the necessary Home Health requirements. The face to face encounter occurred on (date): 01/10/2020 The encounter with the patient was in whole, or in part, for the following medical condition, whichis the primary reason for home health care. (List medical condition): Gangrene green RT foot Clinical findings that support the need for home care: Medical condition requiring skilled assessment/education Wound requiring care, assessment, and instruction I certify that my clinical findings support patient's homebound status. Homebound criteria met because: Requires assistance of another to leave home safely Call provider for: Temperature -Temperature greater than 101 degrees F Call provider for: difficulty breathing or chest pain Call provider for: extreme fatigue Call provider for: persistent dizziness or light-headedness Call provider for: persistent nausea or vomiting Call provider for: redness, tenderness, or signs of infection (pain, swelling, redness, odor or green/yellow discharge around incision site) Call provider for: severe uncontrolled pain 1. Vancomycin 1 g IV every 12 hours x 6 weeks. Pharmacy to manage vanco troughs and dosing. 2. Weekly CBC, BMP, ESR- Please fax results to [phone] Good handwashing is the best way to prevent the spread of infection. It is important to take all medications as prescribed It is important to keep all scheduled appointment Routine PICC line care If you have any questions or concerns following discharge, please call [facility] at [phone]. Disposition: home Outpatient Follow-Up: Contact Information for Follow-ups Erna Anthony MD Specialty: Infectious Diseases, Internal Medicine, Preventative Medicine, Wound Care Relationship: Consulting Physician [address] [place] [address] [facility] [address] Next Steps: Follow up Instructions: in 4 weeks. please call for your appointment time Questions: To provider: ERNA ANTHONY Instructions for follow-up (appointment date and time): in 4 weeks [facility] [place] [facility] Specialty: Wound Care [address] [place] [id number] Next Steps: Go to Instructions: 01/11 3:45 pm [facility] Home Care Services Specialty: Home Health and Hospice [address] [facility] [address] Next Steps: Follow up Questions: Service Line: Home Health and Infusion Primary disciplines requested: [facility] Home Health Services: Wound/ Ostomy Care Infusion Services: IV Antibiotics/Other Medications Comment: IV Vanco 1000mg Q12hr for 6 weeks, pharmacy to redose and manage levels. Physician to follow patient's care (the person listed here will be responsible for signing ongoing orders): PCP Requested Start of Care Date: Tomorrow Special instructions (labs, wound care, etc.): reinforce right foot dressing prn I attest that I or another qualified licensed provider saw the patient 90 days prior to or 30 days post admission and this face to face encounter meets the necessary Home Health requirements. The face to face encounter occurred on (date): 01/10/2020 The encounter with the patient was in whole, or in part, for the following medical condition, whichis the primary reason for home health care. (List medical condition): Gangrene green RT foot Clinical findings that support the need for home care: Medical condition requiring skilled assessment/education Wound requiring care, assessment, and instruction I certify that my clinical findings support patient's homebound status. Homebound criteria met because: Requires assistance of another to leave home safely Referral Status: Pending Authorization Cherelle Corcoran MD Specialty: Family Medicine Relationship: PCP - General [address] [place] [address] Next Steps: Follow up on 01/17/2020 Instructions: 10:30 AM Future Appointments Date Time Provider Department Center 01/12/2020 To Be Determined Brigid Keenan RN [facility] None 01/17/2020 10:30 AM Cherelle Corcoran MD [facility] SH 230 MG Decent 02/02/2020 3:45 PM Guy Walsh MD [facility] BLV 120 MG Decent Total time spent on day of discharge 35 minutes Signed: Zahra Corona MD Internal Medicine - Hospitalist [facility] - Adult Hospitalist Service 01/11/2020 4:58 PM Cc: Cherelle Corcoran MD * Zahra Corona MD - 01/10/2020 12:40 PM CDT [place], [place] Hospitalist Discharge Summary Patient Name: Sixto Chakraborty Patient : 1950 Room/Bed: [place] [id number] Admission Date/Time: 01/04/2020 5:43 PM Discharge date: 01/10/2020 Admitting Physician: Mathew Mccullough MD Discharge Physician: Zahra Corona MD Consults: Treatment Team: Consulting Physician: Erna Anthony MD; Consulting Physician: Agus Golden DPM; Consulting Physician: Anat Pelayo DPM Discharge Diagnoses: Principal Problem: Acute osteomyelitis of toe of right foot (CMS/HCC) Active Problems: Schizophrenia (CMS/HCC) Diabetic neuropathy (CMS/HCC) Uncontrolled type 2 diabetes mellitus with hyperglycemia (CMS/HCC) Ulcer of toe of right foot, with fat layer exposed (CMS/HCC) Essential hypertension Presenting Problem/History of Present Illness: Acute osteomyelitis of toe of right foot (CMS/HCC) For full details of presentation including detailed history, past medical, surgical, social, familyhistory and detailed ROS, as well as detailed exam and labs at time of presentation, please see theHistory and Physical. Hospital Course: 69yo female with history of diabetes, schizophrenia, diabetic foot culture transferred from wound care clinic due to gangrene. Recent mri was concerned for 4th toe osteomyelitis. Amputation of the 4th right toe with wound debridement and biopsy was done on 01/[address] Pelayo. She has MRSA growth. Do Perez recommends 6 weeks of iv vancomycin. Family has opted for home health instead of SNF. Follow up in ID and wound care clinics. Issues Requiring Follow-up at Discharge and Test Results Pending at Discharge: Pending Labs Order Current Status Surgical pathology In process Blood culture Blood Antecubital, right Preliminary result Blood culture Blood Hand, right Preliminary result Tissue aerobic and anaerobic culture and gram stain Bone Toe, fourth, right Preliminary result Discharge Exam: Vitals: 01/09/20 0759 01/09/20 1542 01/09/20 2353 01/10/20 0856 BP: 133/63 142/53 112/55 141/57 BP Location: Right arm Left arm Right arm Right arm Patient Position: Lying Lying Lying Lying Pulse: 72 80 79 91 Resp: 18 18 18 18 Temp: 36.2 ??C (97.2 ??F) 36.8 ??C (98.3 ??F) 36.5 ??C (97.7 ??F) 36.6 ??C (97.8 ??F) TempSrc: Temporal Temporal Temporal Temporal SpO2: 90% 90% 94% 90% Weight: Height: General: awake, alert, oriented. No acute distress Eyes: pupils are equal, no scleral icterus Neck: supple Pharynx: No gross oral lesion Lungs: clear to auscultation with no wheezes or rales Heart: [id number] Abd: +BS, Non Tender, Non distended Lower Ext: right foot dressing not removed Neuro: No new gross deficits appreciated Musculoskeletal: no gross joint erythema, edema, tenderness Psychiatric: tangential, flat affect Labs: (last 48 hours): Recent Results (from the past 48 hour(s)) Vancomycin, trough Collection Time: 01/08/20 3:50 PM Result Value Ref Range Vancomycin, trough 6.5 (L) 15.0 - 20.0 mcg/mL POCT glucose Collection Time: 01/08/20 4:48 PM Result Value Ref Range Glucose, POC 219 (H) 71 - 98 mg/dL POCT glucose Collection Time: 01/08/20 8:32 PM Result Value Ref Range Glucose, POC 262 (H) 71 - 98 mg/dL POCT glucose Collection Time: 01/09/20 2:55 AM Result Value Ref Range Glucose, POC 199 (H) 71 - 98 mg/dL CBC with auto differential Collection Time: 01/09/20 4:15 AM Result Value Ref Range WBC 12.9 (H) 3.8 - 9.9 K/cumm Hgb 7.9 (L) 11.9 - 15.5 g/dL Hct 24.6 (L) 35.6 - 45.5 % Plt 400 150 - 400 K/cumm MPV 9.6 9.1 - 12.3 fL RBC 2.71 (L) 3.90 - 5.20 M/cumm MCV 90.8 81.3 - 96.4 fL MCH 29.2 27.1 - 33.3 pg MCHC 32.1 (L) 32.3 - 35.7 g/dL RDW CV 14.2 11.1 - 14.9 % RDW SD 46.2 35.7 - 48.1 fL NRBC abs 0.14 (H) 0.00 - 0.01 K/cumm Comprehensive metabolic panel Collection Time: 01/09/20 4:15 AM Result Value Ref Range Sodium 139 135 - 145 mmol/L Potassium, pl 4.1 3.3 - 4.9 mmol/L Chloride 105 97 - 110 mmol/L CO2 26 22 - 32 mmol/L Anion gap 8 2 - 15 mmol/L BUN 11 8 - 25 mg/dL Creatinine 0.83 0.60 - 1.10 mg/dL Glucose 162 70 - 199 mg/dL Calcium 8.7 8.5 - 10.3 mg/dL Bilirubin, total <0.2 0.1 - 1.2 mg/dL Protein, pl 6.4 (L) 6.5 - 8.5 g/dL Albumin 2.1 (L) 3.5 - 5.0 g/dL Alk phos 176 (H) 40 - 130 Units/L ALT 21 7 - 45 Units/L AST 33 10 - 45 Units/L Phosphorus Collection Time: 01/09/20 4:15 AM Result Value Ref Range Phosphorus, pl 3.0 2.3 - 4.5 mg/dL Magnesium Collection Time: 01/09/20 4:15 AM Result Value Ref Range Magnesium 2.1 1.4 - 2.5 mg/dL CRP (acute phase) Collection Time: 01/09/20 4:15 AM Result Value Ref Range C-RP 172.5 (H) <=10.0 mg/L Differential, auto Collection Time: 01/09/20 4:15 AM Result Value Ref Range Neutrophil abs 9.2 (H) 1.7 - 6.5 K/cumm Imm gran abs 0.1 0.0 - 0.1 K/cumm Lymphocyte abs 2.5 0.8 - 3.3 K/cumm Monocyte abs 0.9 (H) 0.2 - 0.8 K/cumm Eosinophil abs 0.2 0.0 - 0.5 K/cumm Basophil abs 0.0 0.0 - 0.1 K/cumm Neutrophil pct 71.3 % Imm gran pct 1.0 % Lymphocyte pct 19.0 % Monocyte pct 7.1 % Eosinophil pct 1.3 % Basophil pct 0.3 % eGFR Collection Time: 01/09/20 4:15 AM Result Value Ref Range GFR 72 mL/min/1.73 m2 POCT glucose Collection Time: 01/09/20 7:58 AM Result Value Ref Range Glucose, POC 131 (H) 71 - 98 mg/dL POCT glucose Collection Time: 01/09/20 11:32 AM Result Value Ref Range Glucose, POC 183 (H) 71 - 98 mg/dL aPTT Collection Time: 01/09/20 3:29 PM Result Value Ref Range aPTT 33 25 - 37 sec Protime-INR Collection Time: 01/09/20 3:29 PM Result Value Ref Range PT 15.1 (H) 9.5 - 13.0 sec INR 1.3 (H) 0.9 - 1.2 POCT glucose Collection Time: 01/09/20 4:50 PM Result Value Ref Range Glucose, POC 170 (H) 71 - 98 mg/dL POCT glucose Collection Time: 01/09/20 8:23 PM Result Value Ref Range Glucose, POC 251 (H) 71 - 98 mg/dL POCT glucose Collection Time: 01/10/20 2:13 AM Result Value Ref Range Glucose, POC 122 (H) 71 - 98 mg/dL Vancomycin, trough Collection Time: 01/10/20 3:49 AM Result Value Ref Range Vancomycin, trough 13.4 (L) 15.0 - 20.0 mcg/mL Phosphorus Collection Time: 01/10/20 3:49 AM Result Value Ref Range Phosphorus, pl 3.4 2.3 - 4.5 mg/dL Magnesium Collection Time: 01/10/20 3:49 AM Result Value Ref Range Magnesium 2.2 1.4 - 2.5 mg/dL CRP (acute phase) Collection Time: 01/10/20 3:49 AM Result Value Ref Range C-RP 119.1 (H) <=10.0 mg/L POCT glucose Collection Time: 01/10/20 7:52 AM Result Value Ref Range Glucose, POC 81 71 - 98 mg/dL POCT glucose Collection Time: 01/10/20 11:53 AM Result Value Ref Range Glucose, POC 174 (H) 71 - 98 mg/dL Diagnostic test and procedures: Xr Foot Right 3 Or More Views Result Date: 12/15/2019 Narrative: EXAMINATION: XR FOOT RIGHT 3 OR MORE VIEWS ORDERING HEALTHCARE PROVIDER: ISAEL DICK HISTORY: xr foot. 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 Patient poor historian, bandages placed. TECHNIQUE: Right foot 3 views. COMPARISON: None cornell ilable FINDINGS: BONES/JOINTS: The bone mineralization is normal. There is no acute fracture or dislocation. Oblique view, there is cortical indistinctness at the 1st distal phalangeal base and at the adjacent 1st proximal phalangeal head. These raise concern for osteomyelitis if there is overlyingsoft tissue ulceration. If this is of strong clinical concern, MRI could be considered. 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 SOFT TISSUES: No acute findings. No radiopaque foreign body. OTHER: Vascular calcifications. Impression: Cortical indistinctness at the 1st proximal phalangeal head and distal phalangeal base,raising concern for osteomyelitis if there is overlying skin ulceration. Electronically signed by: Eliseo Cedeño M.D. Mri Foot Right W Wo Contrast Result Date: 12/27/2019 Narrative: Patient Name: SIXTO CHAKRABORTY Ordering Dr: Guy Walsh MD, D.O.B: 1950 Exam Date: 12/26/192044 Age: 69 Sex: Female MR#: [id number] Loc: RADIOLOGY REPORT Order #[id number] Magnetic Resonance Imaging MRI Foot Right W/WO Contrast Signed EXAM DESCRIPTION: MRI Foot Right W/WO Contrast REASON FOR STUDY: Wounds to dorsal/plantar surfaces between all toes. Wounds began in July shortly after getting nails trimmed. TECHNIQUE: Multiplanar, multisequence MRI of the right foot was performed before and after contrast. CONTRAST TYPE/DOSE: 11 cc Dotarem injected through the left antecubital fossa through a 23 gauge IV COMPARISON: None FINDINGS: Bones: Slightly fragmented appearance of the 1st distal phalanx, likely related to old injury. There is mild bone marrow edema at the 1st interphalangeal joint. There is subchondral cystic change about the 1st metatarsal head-likely degenerative in nature. There is T1 marrow signal replacement about the 4th proximal phalanx with associated bone marrow edema. Findings are concerning for osteomyelitis in the appropriate setting. There are similar but less pronounced findings atthe 4th middle phalanx. The 4th distal phalanx demonstrate T1 marrow signal, however, has edema. This is likely reactive. There is additional bone marrow edema noted at the 2nd proximal and middle phalanx which is nonspecific and may be related to osteitis. Articulations: There is scattered osteoarthritis, most severe at the 1st metatarsophalangeal joint with subchondral cystic change about the 1st metatarsal head and opposing medial hallux sesamoid. Soft Tissues: Diffuse nonspecific soft tissue edema centered over dorsum of the foot. Diffuse plantar intramuscular edema. Small amount of intermetatarsal bursal fluid is noted at the 1st web space. Tendons: The flexor and extensor tendons are intact. Lisfranc Ligament: Intact. Post Contrast Findings: Enhancement is noted at the 1st distal phalanx, 2nd proximal, middle, and distal phalanges, 4th proximal mid and distal phalanx. A central portion of the 4th proximal phalanx appears to be nonenhancing which may be reflective of an area of chronic osteomyelitis. No identifiable fluid collection or abscess. Other: No other finding. IMPRESSION: 1. Abnormal T1 marrow signal within the 4th proximal and middle phalanx with associated edema. Findings are compatible with osteomyelitis. Given appearance of central nonenhancement within the 4thproximal phalanx, this may be related to an acute on chronic process. Recommend correlation with physical examination and clinical history. 2. Bone marrow edema is also noted about the 1st distal and 2nd proximal through distal phalanges without T1 signal replacement. Findings are likely related to reactive osteitis though early osteomyelitis is not excluded in the appropriate clinical setting and ulceration. 3. 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 THIS IS AN ELECTRONICALLY VERIFIED FINAL REPORT 12/27/2019 1:44 PM - Electronically signed by Naun BROWNE T: Report ID: [id number] Reading Location: [id number] REPORT ELECTRONICALLY SIGNED IN OTHER VENDOR SYSTEM Transthoracic Echo Complete W Doppler/cf Result Date: 01/09/2020 Narrative: [address] [place] [address] Echocardiogram Report Patient Name: SIXTO CHAKRABORTY : 1950 Study Date: 01/09/202013:05:18 Gender: F Tech: AA Location: [id number] Ref.Provider: MATHEW MCCULLOUGH Height(Cm): BSA: Weight(Kg): Quality: Good Order Provider: EMILE ESCUDERO Procedures: Echocardiographic Report: Transthoracic echocardiogram with complete 2D, M-Mode, and color Doppler examination. Indications: Congestive Heart Failure. Measurements: 2D/M Mode Doppler Measurement Value Normal Range Measurement Value Normal Range EF Mod 4C 66.9 [ 55.0 - 70.0 ] percent CORNELL Vmax 2.39 [ 2.00 - 4.00 ] cm2 LVIDd 2D 3.00 [ 3.90 - 5.30 ] cm AV Mean PG 8 [ 2 - 4 ] mmHg LVIDs 2D 2.12 [ 2.30 - 3.90 ] cm AV Peak Lalit 1.90 [ 1.00 - 1.70 ] m/s LVPWd 2D 1.09 [ 0.60 - 1.00 ] cm AV VTI 41.26 cm IVSd 2D 1.15 [0.60 - 0.90 ] cm LVOT Diam 2.10 [ 1.70 - 2.10 ] cm LA Dimension 2D 4.03 [ 2.70 - 3.80 ] cm LVOT Peak Lalit 1.31 [ 0.70 - 1.10 ] m/s AoR Diam MM 2.71 [ 2.60 - 3.70 ] cm LVOT VTI 23.41 [ 20.00 - 30.00 ] cm ACS MM 1.94 cm MV E Peak Lalit 1.17 [ 0.60 - 1.30 ] m/s MV A Peak Lalit 1.07 [ 1.00 - 1.20 ] m/s MV Mean PG 3 [ <= 5 ] mmHg MV PHT 49 [ 20 - 100 ] msec MVA 2.20 MV Decel Time 170 [ 104 - 258 ] msec PV Peak Lalit 1.35 [ 0.40 - 0.80 ] m/s TR Peak Lalit 2.31 [ 1.00 - 2.80 ] m/s TR Peak PG 21 mmHg RVSP 26.00 [ 10.00 - 36.00 ] mmHg E' 0.08 E/E' 14.44 PA Pressure 5.00 [ 10.00 - 36.00 ] mmHg Findings: Atrial Septum: Normal atrial septum. Left Ventricle: Normal left ventricular systolic function with no focal wall motion abnormalities. Normal left ventricular size. Normal left ventricular diastolic function. Ejection fraction is visually estimated at 67 %. Left Atrium: The left atrium is normal in size. Normal left atrial pressure based on pulmonary vein inflow. Right Ventricle: Normal right ventricular size. Normal right ventricular systolic function. Right Atrium: The right atrium is normal in size. Aortic Valve: Normal structure of the aortic valve. No evidence of hemodynamically significant aortic stenosis by Doppler. No aortic regurgitation. Mitral Valve: Normal structure of the mitral valve. Trivial regurgitation of the mitral valve. Pulmonic Valve: Pulmonic valve not well visualized. No evidence of pulmonic regurgitation. Tricuspid Valve: Right Ventricular Systolic Pressure could not be estimated due to inadequate visualization of TR jet. Pericardium: Normal pericardium with no significant pericardial effusion. Aorta: Normal aortic root. IVC: Normal size and no respiratory collapse consistent with elevated right atrial pressure (5-10 mmHg). Conclusions: Normal left ventricularsystolic function with no focal wall motion abnormalities. Normal left ventricular size. Normal left ventricular diastolic function. Ejection fraction is visually estimated at 67 %. The left atrium is normal in size. Normal left atrial pressure based on pulmonary vein inflow. The right atrium is normal in size. Right Ventricular Systolic Pressure could not be estimated due to inadequate visualization of TR jet. Electronically Signed By: Dr Adryan Richmond 2020-01-09 15:42:03 CDT Us Arterial Doppler Lower Extremity Bilateral Result Date: 01/05/2020 Narrative: EXAMINATION: US ARTERIAL DOPPLER LOWER EXTREMITY BILATERAL ORDERING HEALTHCARE PROVIDER:EMILE ESCUDERO HISTORY: Atherosclerosis of [place] Arteries of Extremities with Intermittent Claudication, Bilateral Leg. Right foot ulcer for one month. COMPARISON: None available TECHNIQUE: Sonographic evaluation of the bilateral lower extremities with ankle-brachial index calculations. FINDINGS:The individual pressures are as follows: Right brachial artery: 115 mmHg. Right proximal thigh: 171mmHg. Right distal thigh: 158 mmHg. Right proximal le mmHg. Right posterior tibial artery: 137 mmHg. Right dorsalis pedis artery: 132 mmHg. Right ankle/brachial index: 1.19. There are multiphasic right posterior tibial artery waveforms. Left brachial artery: 109 mmHg. Left proximal thigh: 161mmHg. Left distal thigh: 148 mmHg. Left proximal le mmHg. Left posterior tibial artery: 128 mmHg. Left dorsalis pedis artery: 125 mmHg. Left ankle/brachial index: 1.11. There are multiphasic left posterior tibial artery waveforms. Impression: 1. Normal right ankle brachial index. 2. Normal left ankle brachial index. Electronically signed by: Eliseo Cedeño M.D. Procedure(s): AMPUTATION 4th toe right foot with wound debridement and bone biopsy. Medications: Your medication list START taking these medications Instructions Last Dose Given Next Dose Due docusate sodium 100 mg capsule Commonly known as: COLACE Take 1 capsule (100 mg total) by mouth 2 (two) times a day as needed for constipation HYDROcodone-acetaminophen 5-325 mg per tablet Commonly known as: NORCO Take 1 tablet by mouth every 6 (six) hours as needed for pain vancomycin 1,000 mg/200 mL piggyback Infuse 200 mL (1,000 mg total) into a venous catheter every 12 (twelve) hours Pharmacy to redose and manage level CONTINUE taking these medications Instructions Last Dose Given Next Dose Due BD Insulin Syringe Ultra-Fine 1 mL 31 gauge x 5/16 syringe Generic drug: insulin syringe-needle U-100 gabapentin 400 mg capsule Commonly known as: NEURONTIN Take 1 capsule (400 mg total) by mouth 3 (three) times a day insulin glargine 100 unit/mL (3 mL) insulin pen Commonly known as: LANTUS,BASAGLAR lisinopriL 10 mg tablet Commonly known as: PRINIVIL,ZESTRIL Take 1 tablet (10 mg total) by mouth daily pen needle, diabetic 32 gauge x 3/16 needle Victoza 2-Vivek 0.6 mg/0.1 mL (18 mg/3 mL) injection Generic drug: liraglutide Inject 1.2 mg under the skin daily STOP taking these medications ciprofloxacin 500 mg tablet Commonly known as: CIPRO VALERIAN ROOT ORAL Where to Get Your Medications You can get these medications from any pharmacy Bring a paper prescription for each of these medications ?? HYDROcodone-acetaminophen 5-325 mg per tablet ?? vancomycin 1,000 mg/200 mL piggyback Information about where to get these medications is not yet available Ask your nurse or doctor about these medications ?? docusate sodium 100 mg capsule Discharge Instructions: Diet Instructions Adult Discharge Diet Diet Type: Return to previous diet Other Instructions Call provider for: Temperature -Temperature greater than 101 degrees F Call provider for: difficulty breathing or chest pain Call provider for: extreme fatigue Call provider for: persistent dizziness or light-headedness Call provider for: persistent nausea or vomiting Call provider for: redness, tenderness, or signs of infection (pain, swelling, redness, odor or green/yellow discharge around incision site) Call provider for: severe uncontrolled pain Ambulatory referral to Home Health Service Line: Home Health and Infusion Primary disciplines requested: [facility] Home Health Services: Wound/ Ostomy Care Infusion Services: IV Antibiotics/Other Medications Comment: IV Vanco 1000mg Q12hr for 6 weeks, pharmacy to redose and manage levels. Physician to follow patient's care (the person listed here will be responsible for signing ongoing orders): PCP Requested Start of Care Date: Tomorrow Special instructions (labs, wound care, etc.): reinforce right foot dressing prn I attest that I or another qualified licensed provider saw the patient 90 days prior to or 30 days post admission and this face to face encounter meets the necessary Home Health requirements. The face to face encounter occurred on (date): 01/10/2020 The encounter with the patient was in whole, or in part, for the following medical condition, whichis the primary reason for home health care. (List medical condition): Gangrene green RT foot Clinical findings that support the need for home care: Medical condition requiring skilled assessment/education Wound requiring care, assessment, and instruction I certify that my clinical findings support patient's homebound status. Homebound criteria met because: Requires assistance of another to leave home safely If you have any questions or concerns following discharge, please call [facility] at [phone]. Disposition: home Outpatient Follow-Up: Contact Information for Follow-ups Erna Anthony MD Specialty: Infectious Diseases, Internal Medicine, Preventative Medicine, Wound Care Relationship: Consulting Physician [address] [place] [address] [facility] [address] Next Steps: Follow up Instructions: in 4 weeks Questions: To provider: ERNA ANTHONY Instructions for follow-up (appointment date and time): in 4 weeks [facility] [place] [facility] Specialty: Wound Care [address] [facility] [address] Next Steps: Go on 01/13/2020 Instructions: 9:00am [facility] Home Care Services [facility] [address] Next Steps: Follow up Questions: Service Line: Home Health and Infusion Primary disciplines requested: [facility] Services: Wound/ Ostomy Care Infusion Services: IV Antibiotics/Other Medications Comment: IV Vanco 1000mg Q12hr for 6 weeks, pharmacy to redose and manage levels. Physician to follow patient's care (the person listed here will be responsible for signing ongoing orders): PCP Requested Start of Care Date: Tomorrow Special instructions (labs, wound care, etc.): reinforce right foot dressing prn I attest that I or another qualified licensed provider saw the patient 90 days prior to or 30 days post admission and this face to face encounter meets the necessary Home Health requirements. The face to face encounter occurred on (date): 01/10/2020 The encounter with the patient was in whole, or in part, for the following medical condition, whichis the primary reason for home health care. (List medical condition): Gangrene green RT foot Clinical findings that support the need for home care: Medical condition requiring skilled assessment/education Wound requiring care, assessment, and instruction I certify that my clinical findings support patient's homebound status. Homebound criteria met because: Requires assistance of another to leave home safely Referral Status: Pending Authorization Other Follow-up Next Steps: Follow up Instructions: [place] [facility] Questions: Instructions for follow-up (appointment date and time): [place] [facility] Future Appointments Date Time Provider Department Center 02/02/2020 3:45 PM Guy Walsh MD [facility] BLV 120 MG Decent Total time spent on day of discharge 32 minutes Signed: Zahra Corona MD Internal Medicine - Hospitalist [facility] - Adult Hospitalist Service 01/10/2020 12:40 PM Cc: Cherelle Corcoran MD documented in this encounter Discharge Instructions * Discharge Instr - Other Orders* Varsha Corrigan RN - 01/10/2020 10:39 AM CDT 1. Vancomycin 1 g IV every 12 hours x 6 weeks. Pharmacy to manage vanco troughs and dosing. 2. Weekly CBC, BMP, ESR- Please fax results to [phone] Good handwashing is the best way to prevent the spread of infection. It is important to take all medications as prescribed It is important to keep all scheduled appointment Routine PICC line care If you have any questions or concerns following discharge, please call [facility] at [phone]. * Attachments The following attachments cannot be sent through Care Everywhere. * Vancomycin (By injection) ([place]) * Hydrocodone/Acetaminophen (By mouth) ([place]) * Laxative, Stool Softeners (By mouth) (Ken[place]) * How to Care for Your Peripherally Inserted Central Catheter (Discharge Care) ([place]) documented in this encounter Medications at Time of Discharge ferrous sulfate 325 mg (65 mg of elemental iron) tabletIndications: Iron Deficiency Anemia Take 1 tablet (325 mg total) by mouth daily with breakfast 30 tablet 11 01/11/2020 01/11/20 21 docusate sodium (COLACE) 100 mg capsuleIndications [...] insulin penIndications:typ e 2 diabetes mellitus Inject 30 Units under the skin nightly 01/17/20 20 insulin syringe-needle U-100 (BD Insulin Syringe Ultra-Fine) 1 mL 31 gauge x 5/16 syringe 3 times a day 09/12/2017 01/17/20 20 lisinopriL (PRINIVIL,ZESTRIL) 10 mg tabletIndications: Essential hypertension Take 1 tablet (10 mg total) by mouth daily 30 tablet 5 12/09/2019 10/03/19 21 pen needle, diabetic 32 gauge x 3/16 needle Once a day 08/19/2017 01/17/20 20 syringe with needle, insulin (INSULIN SYRINGE-NEEDLE U-100 MISC) 3 times a day 09/12/2017 12/01/19 23 vancomycin 1,000 mg/200 mL piggybackIndicatio ns:Skin/Soft Tissue Infection Infuse 200 mL (1,000 mg total) into a venous catheter every 12 (twelve) hours Pharmacy to redose and manage level 51332 mL 1 01/10/2020 01/12/20 20 Victoza 2-Vievk 0.6 mg/0.1 mL (18 mg/3 mL) injectionIndicatio ns:Uncontrolled type 2 diabetes mellitus with hyperglycemia (HCC) Inject 1.2 mg under the skin daily 6 mL 1 09/06/2019 01/17/20 20 documented as of this encounter Ordered Prescriptions Prescription Sig Dispense Quantity Refills Last Filled Start Date End Date ferrous sulfate 325 mg (65 mg of elemental iron) tabletIndications :Iron Deficiency Anemia Take 1 tablet (325 mg total) by mouth daily with breakfast 30 tablet 11 01/11/2020 1 docusate sodium (COLACE) 100 mg capsuleIndication s:constipation Take 1 capsule (100 mg total) by mouth 2 (two) times a day as needed for constipation 01/10/2020 1 HYDROcodone-aceta minophen (NORCO) 5-325 mg per tabletIndications :Pain Take 1 tablet by mouth every 6 (six) hours as needed for pain 30 tablet 01/10/2020 0 vancomycin 1,000 mg/200 mL piggybackIndicati ons:Skin/Soft Tissue Infection Infuse 200 mL (1,000 mg total) into a venous catheter every 12 (twelve) hours Pharmacy to redose and manage level 45262 mL 1 01/10/2020 0 documented in this encounter Discharge Disposition Disposition Code Departure Means Destination Discharge to home, home health skilled care documented in this encounter Progress Notes * Karolina Escalona, [facility]ly [facility] - 01/11/2020 4:49 PM CDT Sixto Chakraborty has been consulted for vancomycin dosing for bone/joint infection. Recommend decreasing vancomycin dose from 1000 mg IV Q12H (2000 mg/day) to 1750 mg every 24 hours for supratherapeutic level of 20.6 on 01/10. [patient's trough was previously low on 750 mg Q12H (1500 mg/day)] Serum creatinine: 0.9 mg/dL 01/11/20 0517 Estimated creatinine clearance: 46.7 mL/min Labs, notes, medications and microbiology results have been reviewed. Patient expected to be discharged on home health, but pharmacy will continue to monitor until that time. Thank you, Karolina Escalona [facility] * Beba Montejo [facility] - 01/11/2020 10:23 AM CDT Vancomycin order of 1000 mg IV every 12 hours is still active for indication of MRSA osteomyelitis. Patient's labs for today are: BUN: 11 Serum creatinine: 0.9 mg/dL 01/11/20 0517 Estimated creatinine clearance: 46.7 mL/min WBC: 13.8 Patient's Scr trend: Select one: Appears stable Labs, notes, medications and microbiology results have been reviewed. ID is following. JARAD Lynch notes this am: right 4th toe osteomyelitis now s/p amputation. Bone culture from right 4th digit andright hallux were positive for MRSA. Plans for long-term IV antibiotics. Vanco x 6 weeks Next level is ordered for: 01/10 1600 Pharmacy will continue to monitor daily. Thank you, Beba Montejo [facility] * Kelly Lynch NP - 01/11/2020 9:55 AM CDT Progress Note Infectious Diseases Chief complaint: Right 4th toe osteomyelitis, MRSA Subjective Patient denies any current complaints. She remains afebrile. Blood cultures remain negative. Objective Vitals: 01/11/20 0750 BP: 156/67 Pulse: 91 Resp: 20 Temp: 36.9 ??C (98.4 ??F) SpO2: 92% Constitutional: Alert, oriented x3.??In no acute distress Eyes: Sclerae anicteric, no conjunctival erythema Lungs: Clear breath sounds, no crackles, no wheezes Heart: Regular rate and rhythm, no murmurs Abdomen: Bowel sounds present, soft, nontender Skin: Warm and dry, ??No rashes Extremities: No edema. LUE PICC line in place. Dressing intact to right foot, no drainage Neuro: No motor deficit Psych: No anxiety Current Medications: Current Facility-Administered Medications Medication Dose Route Frequency Provider Last Rate Last Dose ??? acetaminophen (TYLENOL) tablet 650 mg 650 mg oral Q4H PRN Emile Escudero MD 650 mg at 01/11/20 0200 ??? amLODIPine (NORVASC) tablet 5 mg 5 mg oral Daily Emile Escudero MD 5 mg at 01/11/20 0814 ??? benzonatate (TESSALON) capsule 100 mg 100 mg oral Q8H PRN Emile Escudero MD 100 mg at 01/06/20 0524 ??? bisacodyl EC (DULCOLAX EC) tablet 10 mg 10 mg oral Daily PRN Mathew Mccullough MD ??? dextrose gel in packet 15 g 15 g oral Q15 Min PRN Emile Escudero MD Or ??? dextrose (D10W) 10% bolus 250 mL 250 mL intravenous Q15 Min PRN Emile Escudero MD ??? docusate sodium (COLACE) capsule 100 mg 100 mg oral BID PRN Emile Escudero MD ??? enoxaparin (LOVENOX) syringe 40 mg 40 mg subcutaneous Daily-2100 Emile Escudero MD 40 mg at 01/10/205 ??? gabapentin (NEURONTIN) capsule 400 mg 400 mg oral TID Emile Escudero MD 400 mg at 01/11/20 0813 ??? glucagon injection 1 mg 1 mg intramuscular Q30 Min PRN Emile Escudero MD ??? hydrALAZINE (APRESOLINE) injection 10 mg 10 mg intravenous Q4H PRN Emile Escudero MD ??? HYDROcodone-acetaminophen (NORCO) 5-325 mg per tablet 1 tablet 1 tablet oral Q4H PRN Emile Escudero MD 1 tablet at 01/10/20 1816 ??? insulin glargine (LANTUS,BASAGLAR) pen injection 32 Units 32 Units subcutaneous Nightly Mathew Mccullough MD 32 Units at 01/10/202112 ??? insulin lispro (HumaLOG) pen injection 1-4 Units 1-4 Units subcutaneous Nightly Emile Escudero MD 4 Units at 01/10/202113 ??? insulin lispro (HumaLOG) pen injection 1-7 Units 1-7 Units subcutaneous TID with meals Emile Escudero MD 5 Units at 01/11/20 0814 ??? lisinopriL (PRINIVIL,ZESTRIL) tablet 10 mg 10 mg oral Daily Emile Escudero MD 10 mg at 01/11/20 0813 ??? magnesium hydroxide (MILK OF MAGNESIA) 80 mg/mL (33.3 mg/mL as elemental magnesium) oral suspension 30 mL 30 mL oral Daily PRN Mathew Mccullough MD 30 mL at 01/06/203 ??? mineral oil (FLEET MINERAL OIL) enema 1 enema 1 enema rectal Daily PRN Mathew Mccullough MD ??? ondansetron ODT (ZOFRAN-ODT) disintegrating tablet 4 mg 4 mg oral Q6H PRN Emile Escudero MD Or ??? ondansetron (ZOFRAN) injection 4 mg 4 mg intravenous Q6H PRN Emile Escudero MD 4 mg at 01/06/20 1101 ??? oxyCODONE (ROXICODONE) tablet 5 mg 5 mg oral Q4H PRN Emile Escudero MD 5 mg at 01/09/20 182 ??? sodium chloride 0.9% flush 5-10 mL 5-10 mL intra-catheter Q12H SOL Erna Anthony MD10 mL at 01/10/202113 ??? sodium chloride 0.9% flush 5-20 mL 5-20 mL intra-catheter PRN Erna Anthony MD ??? vancomycin 1,000 mg/200 mL in sodium chloride 0.9% (premix) 1,000 mg 1,000 mg intravenous Q12H Mathew Mccullough MD 1,000 mg at 01/11/20 0518 Allergies: No Known Allergies Social History Social History Socioeconomic History ??? Marital status: [...] file Gets together: Not on file Attends druze service: Not on file Active member of [...] History Narrative ??? Not on file Family Medical History Family History Problem Relation Age of Onset ??? Stomach cancer Father Imaging No results found. Labs Recent Results (from the past 24 hour(s)) POCT glucose Collection Time: 01/10/20 11:53 AM Result Value Ref Range Glucose, POC 174 (H) 71 - 98 mg/dL POCT glucose Collection Time: 01/10/20 9:12 PM Result Value Ref Range Glucose, POC 276 (H) 71 - 98 mg/dL POCT glucose Collection Time: 01/11/20 2:23 AM Result Value Ref Range Glucose, POC 246 (H) 71 - 98 mg/dL Phosphorus Collection Time: 01/11/20 5:17 AM Result Value Ref Range Phosphorus, pl 3.3 2.3 - 4.5 mg/dL Magnesium Collection Time: 01/11/20 5:17 AM Result Value Ref Range Magnesium 2.2 1.4 - 2.5 mg/dL CBC with auto differential Collection Time: 01/11/20 5:17 AM Result Value Ref Range WBC 13.8 (H) 3.8 - 9.9 K/cumm Hgb 7.5 (L) 11.9 - 15.5 g/dL Hct 23.6 (L) 35.6 - 45.5 % Plt 425 (H) 150 - 400 K/cumm MPV 9.4 9.1 - 12.3 fL RBC 2.61 (L) 3.90 - 5.20 M/cumm MCV 90.4 81.3 - 96.4 fL MCH 28.7 27.1 - 33.3 pg MCHC 31.8 (L) 32.3 - 35.7 g/dL RDW CV 14.7 11.1 - 14.9 % RDW SD 48.1 35.7 - 48.1 fL NRBC abs 0.06 (H) 0.00 - 0.01 K/cumm Comprehensive metabolic panel Collection Time: 01/11/20 5:17 AM Result Value Ref Range Sodium 137 135 - 145 mmol/L Potassium, pl 4.1 3.3 - 4.9 mmol/L Chloride 103 97 - 110 mmol/L CO2 26 22 - 32 mmol/L Anion gap 7 2 - 15 mmol/L BUN 11 8 - 25 mg/dL Creatinine 0.90 0.60 - 1.10 mg/dL Glucose 247 (H) 70 - 199 mg/dL Calcium 8.8 8.5 - 10.3 mg/dL Bilirubin, total <0.2 0.1 - 1.2 mg/dL Protein, pl 6.9 6.5 - 8.5 g/dL Albumin 2.3 (L) 3.5 - 5.0 g/dL Alk phos 208 (H) 40 - 130 Units/L ALT 17 7 - 45 Units/L AST 22 10 - 45 Units/L CRP (acute phase) Collection Time: 01/11/20 5:17 AM Result Value Ref Range C-RP 112.3 (H) <=10.0 mg/L Differential, auto Collection Time: 01/11/20 5:17 AM Result Value Ref Range Neutrophil abs 10.6 (H) 1.7 - 6.5 K/cumm Imm gran abs 0.1 0.0 - 0.1 K/cumm Lymphocyte abs 2.0 0.8 - 3.3 K/cumm Monocyte abs 0.8 0.2 - 0.8 K/cumm Eosinophil abs 0.2 0.0 - 0.5 K/cumm Basophil abs 0.0 0.0 - 0.1 K/cumm Neutrophil pct 77.2 % Imm gran pct 0.9 % Lymphocyte pct 14.4 % Monocyte pct 5.7 % Eosinophil pct 1.5 % Basophil pct 0.3 % eGFR Collection Time: 01/11/20 5:17 AM Result Value Ref Range GFR 65 mL/min/1.73 m2 Iron profile w/ IBC Collection Time: 01/11/20 5:17 AM Result Value Ref Range Iron 20 (L) 35 - 145 mcg/dL TIBC 144 (L) 250 - 400 mcg/dL Transferrin saturation 14 (L) 20 - 50 % Ferritin Collection Time: 01/11/20 5:17 AM Result Value Ref Range Ferritin 403 (H) 15 - 150 ng/mL POCT glucose Collection Time: 01/11/20 7:52 AM Result Value Ref Range Glucose, POC 242 (H) 71 - 98 mg/dL Assessment/Plan Principal Problem: Acute osteomyelitis of toe of right foot (CMS/HCC) Active Problems: Schizophrenia (CMS/HCC) Diabetic neuropathy (CMS/HCC) Uncontrolled type 2 diabetes mellitus with hyperglycemia (CMS/HCC) Ulcer of toe of right foot, with fat layer exposed (CMS/HCC) Essential hypertension Sixto Chakraborty is a 69-year old history of diabetes mellitus type II, peripheral neuropathy, and schizophrenia admitted with right 4th toe osteomyelitis now s/p amputation. Bone culture from right 4th digit and right hallux were positive for MRSA. Plans for long-term IV antibiotics. Patient is afebrile and stable. Blood cultures remain negative. LUE PICC line in place. Patient may discharge anytime from ID standpoint. ?? Plan: ?? 1. Vancomycin 1 g IV every 12 hours x 6 weeks. Pharmacy to manage vanco troughs and dosing. 2. Weekly CBC, BMP, ESR- Please fax results to [phone] 3. Follow-up with Dr. Anthony in 4 weeks Kelly Lynch NP [facility] [phone] * Daisy Green MSW - 01/10/2020 12:09 PM CDT 01/10/20 1207 Discharge Summary Chart reviewed For Medical Necessity Discharge Disposition Home with Home Health (PT/OT/RN);Home with IV Services (RN visits) Equipment/Provider Needs Home Equipment Needs Identified;Home Provider Services Needs Identified Home Care Agency Information Home Care Agency Type #1: [facility] Home Care Agency Name [facility] Home Health Home Care Agency Discharge Additional Assistance Does the patient need discharge transport arranged? No * Kelly Lynch NP - 01/10/2020 9:34 AM CDT Progress Note Infectious Diseases Chief complaint: right 4th toe osteomyelitis, MRSA Subjective Patient is doing well. Denies any current complaints. She remains afebrile. Blood cultures remain negative. LUE PICC line in place. Vanco trough of 13.4. Vancomycin increased to 1 g every 12 hours. Objective Vitals: 01/10/20 0856 BP: 141/57 Pulse: 91 Resp: 18 Temp: 36.6 ??C (97.8 ??F) SpO2: 90% Constitutional: Alert, oriented x3. In no acute distress Eyes: Sclerae anicteric, no conjunctival erythema Lungs: Clear breath sounds, no crackles, no wheezes Heart: Regular rate and rhythm, no murmurs Abdomen: Bowel sounds present, soft, nontender Skin: Warm and dry, No rashes Extremities: No edema. LUE PICC line in place. Dressing intact to right foot, no drainage Neuro: No motor deficit Psych: No anxiety Current Medications: Current Facility-Administered Medications Medication Dose Route Frequency Provider Last Rate Last Dose ??? acetaminophen (TYLENOL) tablet 650 mg 650 mg oral Q4H PRN Emile Escudero MD 650 mg at 01/07/202108 ??? amLODIPine (NORVASC) tablet 5 mg 5 mg oral Daily Emile Escudero MD 5 mg at 01/10/20 0757 ??? benzonatate (TESSALON) capsule 100 mg 100 mg oral Q8H PRN Emile Escudero MD 100 mg at 01/06/20 0524 ??? bisacodyl EC (DULCOLAX EC) tablet 10 mg 10 mg oral Daily PRN Mathew Mccullough MD ??? dextrose gel in packet 15 g 15 g oral Q15 Min PRN Emile Escudero MD Or ??? dextrose (D10W) 10% bolus 250 mL 250 mL intravenous Q15 Min PRN Emile Escudero MD ??? docusate sodium (COLACE) capsule 100 mg 100 mg oral BID PRN Emile Escudero MD ??? enoxaparin (LOVENOX) syringe 40 mg 40 mg subcutaneous Daily-2100 Emile Escudero MD 40 mg at 01/09/202024 ??? gabapentin (NEURONTIN) capsule 400 mg 400 mg oral TID Emile Escudero MD 400 mg at 01/10/20 0758 ??? glucagon injection 1 mg 1 mg intramuscular Q30 Min PRN Emile Escudero MD ??? hydrALAZINE (APRESOLINE) injection 10 mg 10 mg intravenous Q4H PRN Emile Escudero MD ??? HYDROcodone-acetaminophen (NORCO) 5-325 mg per tablet 1 tablet 1 tablet oral Q4H PRN Emile Escudero MD 1 tablet at 01/09/20 2309 ??? insulin glargine (LANTUS,BASAGLAR) pen injection 32 Units 32 Units subcutaneous Nightly Mathew Mccullough MD 32 Units at 01/09/202023 ??? insulin lispro (HumaLOG) pen injection 1-4 Units 1-4 Units subcutaneous Nightly Emile Escudero MD 4 Units at 01/09/202023 ??? insulin lispro (HumaLOG) pen injection 1-7 Units 1-7 Units subcutaneous TID with meals Emile Escudero MD 2 Units at 01/09/20 1706 ??? lisinopriL (PRINIVIL,ZESTRIL) tablet 10 mg 10 mg oral Daily Emile Escudero MD 10 mg at 01/10/20 0757 ??? magnesium hydroxide (MILK OF MAGNESIA) 80 mg/mL (33.3 mg/mL as elemental magnesium) oral suspension 30 mL 30 mL oral Daily PRN Mathew Mccullough MD 30 mL at 01/06/20 2233 ??? mineral oil (FLEET MINERAL OIL) enema 1 enema 1 enema rectal Daily PRN Mathew Mccullough MD ??? ondansetron ODT (ZOFRAN-ODT) disintegrating tablet 4 mg 4 mg oral Q6H PRN Emile Escudero MD Or ??? ondansetron (ZOFRAN) injection 4 mg 4 mg intravenous Q6H PRN Emile Escudero MD 4 mg at 01/06/20 1101 ??? oxyCODONE (ROXICODONE) tablet 5 mg 5 mg oral Q4H PRN Emile Escudero MD 5 mg at 01/09/20 1824 ??? sodium chloride 0.9% flush 5-10 mL 5-10 mL intra-catheter Q12H SOL Erna Anthony MD10 mL at 01/10/20 0757 ??? sodium chloride 0.9% flush 5-20 mL 5-20 mL intra-catheter PRN Erna Anthony MD ??? vancomycin 1,000 mg/200 mL in sodium chloride 0.9% (premix) 1,000 mg 1,000 mg intravenous Q12H Mathew Mccullough MD 1,000 mg at 01/10/20 0605 Allergies: No Known Allergies Social History Social History Socioeconomic History ??? Marital status: [...] file Gets together: Not on file Attends druze service: Not on file Active member of [...] History Narrative ??? Not on file Family Medical History Family History Problem Relation Age of Onset ??? Stomach cancer Father Imaging No results found. Labs Recent Results (from the past 24 hour(s)) POCT glucose Collection Time: 01/09/20 11:32 AM Result Value Ref Range Glucose, POC 183 (H) 71 - 98 mg/dL aPTT Collection Time: 01/09/20 3:29 PM Result Value Ref Range aPTT 33 25 - 37 sec Protime-INR Collection Time: 01/09/20 3:29 PM Result Value Ref Range PT 15.1 (H) 9.5 - 13.0 sec INR 1.3 (H) 0.9 - 1.2 POCT glucose Collection Time: 01/09/20 4:50 PM Result Value Ref Range Glucose, POC 170 (H) 71 - 98 mg/dL POCT glucose Collection Time: 01/09/20 8:23 PM Result Value Ref Range Glucose, POC 251 (H) 71 - 98 mg/dL POCT glucose Collection Time: 01/10/20 2:13 AM Result Value Ref Range Glucose, POC 122 (H) 71 - 98 mg/dL Vancomycin, trough Collection Time: 01/10/20 3:49 AM Result Value Ref Range Vancomycin, trough 13.4 (L) 15.0 - 20.0 mcg/mL Phosphorus Collection Time: 01/10/20 3:49 AM Result Value Ref Range Phosphorus, pl 3.4 2.3 - 4.5 mg/dL Magnesium Collection Time: 01/10/20 3:49 AM Result Value Ref Range Magnesium 2.2 1.4 - 2.5 mg/dL CRP (acute phase) Collection Time: 01/10/20 3:49 AM Result Value Ref Range C-RP 119.1 (H) <=10.0 mg/L POCT glucose Collection Time: 01/10/20 7:52 AM Result Value Ref Range Glucose, POC 81 71 - 98 mg/dL Assessment/Plan Principal Problem: Acute osteomyelitis of toe of right foot ([facility]/HCC) Active Problems: Schizophrenia ([facility]/HCC) Diabetic neuropathy ([facility]/HCC) Uncontrolled type 2 diabetes mellitus with hyperglycemia ([facility]/HCC) Ulcer of toe of right foot, with fat layer exposed ([facility]) Essential hypertension Sixto Chakraborty is a 69-year old history of diabetes mellitus type II, peripheral neuropathy, and schizophrenia admitted with right 4th toe osteomyelitis now s/p amputation. Bone culture from right 4th digit and right hallux were positive for MRSA. Plans for long-term IV antibiotics. Patient is afebrile and stable. Blood cultures remain negative. LUE PICC line in place. Patient may discharge anytime from ID standpoint. Plan: 1. Vancomycin 1 g IV every 12 hours x 6 weeks. Pharmacy to manage vanco troughs and dosing. 2. Weekly CBC, BMP, ESR- Please fax results to [phone] 3. Follow-up with Dr. Anthony in 4 weeks Kelly Lynch NP [facility] [phone] * Indira Charles, RD - 01/10/2020 9:26 AM CDT Nutrition Assessment Reason for Assessment: Follow Up Encounter Date: 01/10/20 9:26 AM Nutrition Assessment and Plan: Patient is a 69 y.o. female. Admit Dx: GANGRENE RT FOOT. Admitted on 01/04/2020, current LOS is 6 days. Nutrition Screen What diet do you follow at home?: regular Have You Recently Lost Weight Without Trying?: No Poor Oral Intake for Four or More Days Prior to Admission: No Per pt, I sometimes check my sugars at home. They are usually good. I watch my serving sizes of everything I eat and I try not to eat carbohydrates at all . 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 Reviewed need for portion control of all foods. Encouraged carbohydrate intake with portion control. Discussed need for 3 meals/day, not skipping meals. Left name and number for questions. Discussed Mat and healing of right foot incision. Pt agreeable to Mat at breakfast and dinner. Current diet order: Adult Diet Special; Consistent Carbohydrate Pt intake is adequate. PO intakes: 50-100% Wt Readings from Last 10 Encounters: 01/04/20 57.1 kg (125 lb 12.8 oz) 12/22/19 56.2 kg (124 lb) 12/09/19 56.2 kg (124 lb) 11/17/19 56.7 kg (125 lb) 11/03/19 56.7 kg (125 lb) 10/21/19 56.7 kg (125 lb) 09/06/19 59 kg (130 lb) 09/01/19 56.7 kg (125 lb) 08/30/19 56.7 kg (125 lb) 03/17/18 63.5 kg (140 lb) Nutrition Diagnosis 1: Increased nutrient needs (protein) Related to: Wounds Evidenced by: Physicalfinding ?? Interventions: [place] diet preferences within the limits of nutrition care order, Medical food supplement ?? Monitoring and Evaluation: Discharge plans, Diet advancement, Labs, PO intake, Supplement tolerance ?? Goals: Adequate nutrition to meet estimated needs by next assessment, Tolerance of medical food supplement by next assessment, Advance to oral intake as medically able ?? Recommendations: Mat at breakfast and dinner when diet increases. Consistent carbohydrate dietwhen diet increases. Nutrition Diagnosis 2: Altered nutrition-related laboratory valuesRelated to: Chronic illness/injuryEvidenced by: Physical finding ?? Interventions: Education, nutrition ?? Monitoring and Evaluation: Blood glucoses, Diet advancement, Discharge plans, Labs, PO intake ?? Goals: Oral intake to meet 75% estimated nutritional needs by next assessment ?? Recommendations: Education on consistent carb diet when diet increases Estimated needs: ?? Total Kcal/kg Estimated Needs : 1711.89 based on Kcal/k. Type of Weight Used for Estimated Kcals: Current ?? MSJ Total Energy Needs: 1704.62 kcal using Stress Factor: 1.3 Activity Factor: 1.25 ?? Total Protein Estimated Needs (gm): 57.06 Protein Needs Based on g/k.0 Type of Weight Used for Estimated Protein : Current. ?? Total Fluid Estimated Needs: 1426.58 Fluid Needs Based on : 25 ml/kg. Objective Anthropometrics Weight: 57.1 kg (125 lb 12.8 oz) Admission Weight : 57.1 kg Weight Change: 0.00 kg (0.00 lbs) IBW/kg (Calculated) : 49.9 kg Height: 157.5 cm (5' 2.01 ) Weight in (lb) to have BMI = 25: 136.4 BMI (Calculated): 23 3 Day I/O Summary 01/070 - 01/09 0659 In: 2453.9 [P.O.:2280; I.V.:5] Out: 200 [Urine:200] Temp: 36.6 ??C (97.8 ??F) Past Medical History: Diagnosis Date ??? Arthritis ??? Depression ??? Diabetic neuropathy (CMS/HCC) ??? Hypertension ??? Schizophrenia (CMS/[facility]) ??? Type 2 diabetes mellitus (CMS/[facility]) Medications and Lab Review: Scheduled Meds: amLODIPine, 5 mg, oral, Daily enoxaparin, 40 mg, subcutaneous, Daily-2100 gabapentin, 400 mg, oral, TID insulin glargine, 32 Units, subcutaneous, Nightly insulin lispro, 1-4 Units, subcutaneous, Nightly insulin lispro, 1-7 Units, subcutaneous, TID with meals lisinopriL, 10 mg, oral, Daily sodium chloride 0.9%, 5-10 mL, intra-catheter, Q12H SOL vancomycin, 1,000 mg, intravenous, Q12H Continuous Infusions: Sodium Date Value Ref Range Status 01/09/2020 139 135 - 145 mmol/L Final Potassium, pl Date Value Ref Range Status 01/09/2020 4.1 3.3 - 4.9 mmol/L Final BUN Date Value Ref Range Status 01/09/2020 11 8 - 25 mg/dL Final Creatinine Date Value Ref Range Status 01/09/2020 0.83 0.60 - 1.10 mg/dL Final Phosphorus, pl Date Value Ref Range Status 01/10/2020 3.4 2.3 - 4.5 mg/dL Final Albumin Date Value Ref Range Status 01/09/2020 2.1 (L) 3.5 - 5.0 g/dL Final Magnesium Date Value Ref Range Status 01/10/2020 2.2 1.4 - 2.5 mg/dL Final Calcium Date Value Ref Range Status 01/09/2020 8.7 8.5 - 10.3 mg/dL Final Lab Results Component Value Date HGBA1C 11.6 (H) 12/14/2019 POC Glucose:87(01/09) Nursing Assessment: Last BM Date: 01/06/20 Bowel Sounds (All Quadrants): Active, Audible Emesis Assessment Emesis Color/Appearance: Green, Undigested food Timoteo Scale Score: 20 Skin Integrity: Surgical incision Nutrition Follow-Up : 01/13/[address],LDN * Yordy Escalona [facility] - 01/10/2020 5:56 AM CDT Sixto Chakraborty has been consulted for vancomycin dosing for bone/Joint infection Increase vancomycin dose to 1000 mg every 12 hours for subtherapeutic level of 13.4 on 01/10/2020 03:49. Next trough 01/10 16:00 . Patient's labs for today are: Serum creatinine: 0.83 mg/dL 01/09/20 0415 Estimated creatinine clearance: 50.6 mL/min Patient's Scr trend: Select one: Appears stable Labs, notes, medications and microbiology results have been reviewed. Pharmacy will continue to monitor daily. Thank you, Yordy Escalona [facility] * Erna Anthony MD - 01/09/2020 2:22 PM CDT Progress Note Infectious Diseases Chief complaint: Right 4th toe osteomyelitis, MRSA Subjective Patient seems doing well, reports no complaints. No fevers. Objective Vitals: 01/09/20 0759 BP: 133/63 Pulse: 72 Resp: 18 Temp: 36.2 ??C (97.2 ??F) SpO2: 90% Constitutional: Alert, oriented x3. In no distress. Eyes: Sclerae anicteric, no conjunctival erythema Lungs: Clear breath sounds, no crackles, no wheezes Heart: Regular rate and rhythm, no murmurs Abdomen: Bowel sounds present, soft, no tender Skin: Warm and dry, No rashes right foot dressing in place. Extremities: No edema Neuro: No motor deficit Psych: No anxiety Current Medications: Current Facility-Administered Medications Medication Dose Route Frequency Provider Last Rate Last Dose ??? acetaminophen (TYLENOL) tablet 650 mg 650 mg oral Q4H PRN Emile Escudero MD 650 mg at 01/07/202108 ??? amLODIPine (NORVASC) tablet 5 mg 5 mg oral Daily Emile Escudero MD 5 mg at 01/09/20 0838 ??? benzonatate (TESSALON) capsule 100 mg 100 mg oral Q8H PRN Emile Escudero MD 100 mg at 01/06/20 0524 ??? bisacodyl EC (DULCOLAX EC) tablet 10 mg 10 mg oral Daily PRN Mathew Mccullough MD ??? dextrose gel in packet 15 g 15 g oral Q15 Min PRN Emile Escudero MD Or ??? dextrose (D10W) 10% bolus 250 mL 250 mL intravenous Q15 Min PRN Emile Escudero MD ??? docusate sodium (COLACE) capsule 100 mg 100 mg oral BID PRN Emile Escudero MD ??? enoxaparin (LOVENOX) syringe 40 mg 40 mg subcutaneous Daily-2100 Emile Escudero MD 40 mg at 01/08/202032 ??? gabapentin (NEURONTIN) capsule 400 mg 400 mg oral TID Emile Escudero MD 400 mg at 01/08/202032 ??? glucagon injection 1 mg 1 mg intramuscular Q30 Min PRN Emile Escudero MD ??? hydrALAZINE (APRESOLINE) injection 10 mg 10 mg intravenous Q4H PRN Emile Escudero MD ??? HYDROcodone-acetaminophen (NORCO) 5-325 mg per tablet 1 tablet 1 tablet oral Q4H PRN Emile Escudero MD 1 tablet at 01/09/20 0651 ??? insulin glargine (LANTUS,BASAGLAR) pen injection 32 Units 32 Units subcutaneous Nightly Mathew Mccullough MD 32 Units at 01/08/202032 ??? insulin lispro (HumaLOG) pen injection 1-4 Units 1-4 Units subcutaneous Nightly Emile Escudero MD 4 Units at 01/08/202031 ??? insulin lispro (HumaLOG) pen injection 1-7 Units 1-7 Units subcutaneous TID with meals Emile Escudero MD 3 Units at 01/09/20 1155 ??? lisinopriL (PRINIVIL,ZESTRIL) tablet 10 mg 10 mg oral Daily Emile Escudero MD 10 mg at 01/09/20 0838 ??? magnesium hydroxide (MILK OF MAGNESIA) 80 mg/mL (33.3 mg/mL as elemental magnesium) oral suspension 30 mL 30 mL oral Daily PRN Mathew Mccullough MD 30 mL at 01/06/20 2233 ??? mineral oil (FLEET MINERAL OIL) enema 1 enema 1 enema rectal Daily PRN Mathew Mccullough MD ??? ondansetron ODT (ZOFRAN-ODT) disintegrating tablet 4 mg 4 mg oral Q6H PRN Emile Escudero MD Or ??? ondansetron (ZOFRAN) injection 4 mg 4 mg intravenous Q6H PRN Emile Escudero MD 4 mg at 01/06/20 1101 ??? oxyCODONE (ROXICODONE) tablet 5 mg 5 mg oral Q4H PRN Emile Escudero MD 5 mg at 01/09/20 0840 ??? sodium chloride 0.9% flush 0.5-20 mL 0.5-20 mL intra-catheter Q8H Mathew Mccullough MD 10 mL at 01/09/20 1353 ??? sodium chloride 0.9% flush 0.5-20 mL 0.5-20 mL intra-catheter PRN Mathew Mccullough MD ??? vancomycin 750 mg/150 mL in sodium chloride 0.9% (premix) 750 mg 750 mg intravenous Q12H Mathew Mccullough MD 750 mg at 01/09/20 0455 Allergies: No Known Allergies Social History Social History Socioeconomic History ??? Marital status: [...] file Gets together: Not on file Attends druze service: Not on file Active member of [...] History Narrative ??? Not on file Family Medical History Family History Problem Relation Age of Onset ??? Stomach cancer Father Imaging No results found. Labs Recent Results (from the past 24 hour(s)) Vancomycin, trough Collection Time: 01/08/20 3:50 PM Result Value Ref Range Vancomycin, trough 6.5 (L) 15.0 - 20.0 mcg/mL POCT glucose Collection Time: 01/08/20 4:48 PM Result Value Ref Range Glucose, POC 219 (H) 71 - 98 mg/dL POCT glucose Collection Time: 01/08/20 8:32 PM Result Value Ref Range Glucose, POC 262 (H) 71 - 98 mg/dL POCT glucose Collection Time: 01/09/20 2:55 AM Result Value Ref Range Glucose, POC 199 (H) 71 - 98 mg/dL CBC with auto differential Collection Time: 01/09/20 4:15 AM Result Value Ref Range WBC 12.9 (H) 3.8 - 9.9 K/cumm Hgb 7.9 (L) 11.9 - 15.5 g/dL Hct 24.6 (L) 35.6 - 45.5 % Plt 400 150 - 400 K/cumm MPV 9.6 9.1 - 12.3 fL RBC 2.71 (L) 3.90 - 5.20 M/cumm MCV 90.8 81.3 - 96.4 fL MCH 29.2 27.1 - 33.3 pg MCHC 32.1 (L) 32.3 - 35.7 g/dL RDW CV 14.2 11.1 - 14.9 % RDW SD 46.2 35.7 - 48.1 fL NRBC abs 0.14 (H) 0.00 - 0.01 K/cumm Comprehensive metabolic panel Collection Time: 01/09/20 4:15 AM Result Value Ref Range Sodium 139 135 - 145 mmol/L Potassium, pl 4.1 3.3 - 4.9 mmol/L Chloride 105 97 - 110 mmol/L CO2 26 22 - 32 mmol/L Anion gap 8 2 - 15 mmol/L BUN 11 8 - 25 mg/dL Creatinine 0.83 0.60 - 1.10 mg/dL Glucose 162 70 - 199 mg/dL Calcium 8.7 8.5 - 10.3 mg/dL Bilirubin, total <0.2 0.1 - 1.2 mg/dL Protein, pl 6.4 (L) 6.5 - 8.5 g/dL Albumin 2.1 (L) 3.5 - 5.0 g/dL Alk phos 176 (H) 40 - 130 Units/L ALT 21 7 - 45 Units/L AST 33 10 - 45 Units/L Phosphorus Collection Time: 01/09/20 4:15 AM Result Value Ref Range Phosphorus, pl 3.0 2.3 - 4.5 mg/dL Magnesium Collection Time: 01/09/20 4:15 AM Result Value Ref Range Magnesium 2.1 1.4 - 2.5 mg/dL CRP (acute phase) Collection Time: 01/09/20 4:15 AM Result Value Ref Range C-RP 172.5 (H) <=10.0 mg/L Differential, auto Collection Time: 01/09/20 4:15 AM Result Value Ref Range Neutrophil abs 9.2 (H) 1.7 - 6.5 K/cumm Imm gran abs 0.1 0.0 - 0.1 K/cumm Lymphocyte abs 2.5 0.8 - 3.3 K/cumm Monocyte abs 0.9 (H) 0.2 - 0.8 K/cumm Eosinophil abs 0.2 0.0 - 0.5 K/cumm Basophil abs 0.0 0.0 - 0.1 K/cumm Neutrophil pct 71.3 % Imm gran pct 1.0 % Lymphocyte pct 19.0 % Monocyte pct 7.1 % Eosinophil pct 1.3 % Basophil pct 0.3 % eGFR Collection Time: 01/09/20 4:15 AM Result Value Ref Range GFR 72 mL/min/1.73 m2 POCT glucose Collection Time: 01/09/20 7:58 AM Result Value Ref Range Glucose, POC 131 (H) 71 - 98 mg/dL POCT glucose Collection Time: 01/09/20 11:32 AM Result Value Ref Range Glucose, POC 183 (H) 71 - 98 mg/dL Assessment/Plan Principal Problem: Acute osteomyelitis of toe of right foot (CMS/HCC) Active Problems: Schizophrenia (CMS/HCC) Diabetic neuropathy (CMS/HCC) Uncontrolled type 2 diabetes mellitus with hyperglycemia (CMS/HCC) Ulcer of toe of right foot, with fat layer exposed (CMS/HCC) Essential hypertension Patient is a 69-year-old female with history of diabetes mellitus type 2, peripheral neuropathy, schizophrenia, admitted with right 4th toe osteomyelitis now and status post amputation. Bone culturespositive for MRSA. Plans to continue IV antibiotics for no less than 6 weeks. PICC line today. DC home over the next 24 hours from my perspective. Follow-up in the office in 4 weeks. Plan: 1. Vancomycin 750 mg IV q12h for 6 weeks. 2. Pharmacy to follow levels. 3. Weekly CBC BMP ESR fax results to [phone] 4. Follow up w me in 4 weeks. Erna Anthony MD [facility] Office [phone] * Destin Pepper DPM - 01/09/2020 11:42 AM CDT Foot & Ankle Progress Note SUBJECTIVE Pt seen at bedside POD #3 S/p amp of R 4th toe and bone biopsy R Hallux. Pt is doing well with no complaints. OBJECTIVE Vitals: Vitals: 01/09/20 0759 BP: 133/63 Pulse: 72 Resp: 18 Temp: 36.2 ??C (97.2 ??F) SpO2: 90% Physical Exam: Gen: WDWN NAD Extremity: sutures in place L 4th toe amp site with mild maceration. Multiple stable interdigital ulcers present. ?? C/s R 4th toe showed MRSA C/s R hallux shows staph sp. Lab/Radiology/Diagnostic Review: Recent Results (from the past 12 hour(s)) POCT glucose Collection Time: 01/09/20 2:55 AM Result Value Ref Range Glucose, POC 199 (H) 71 - 98 mg/dL CBC with auto differential Collection Time: 01/09/20 4:15 AM Result Value Ref Range WBC 12.9 (H) 3.8 - 9.9 K/cumm Hgb 7.9 (L) 11.9 - 15.5 g/dL Hct 24.6 (L) 35.6 - 45.5 % Plt 400 150 - 400 K/cumm MPV 9.6 9.1 - 12.3 fL RBC 2.71 (L) 3.90 - 5.20 M/cumm MCV 90.8 81.3 - 96.4 fL MCH 29.2 27.1 - 33.3 pg MCHC 32.1 (L) 32.3 - 35.7 g/dL RDW CV 14.2 11.1 - 14.9 % RDW SD 46.2 35.7 - 48.1 fL NRBC abs 0.14 (H) 0.00 - 0.01 K/cumm Comprehensive metabolic panel Collection Time: 01/09/20 4:15 AM Result Value Ref Range Sodium 139 135 - 145 mmol/L Potassium, pl 4.1 3.3 - 4.9 mmol/L Chloride 105 97 - 110 mmol/L CO2 26 22 - 32 mmol/L Anion gap 8 2 - 15 mmol/L BUN 11 8 - 25 mg/dL Creatinine 0.83 0.60 - 1.10 mg/dL Glucose 162 70 - 199 mg/dL Calcium 8.7 8.5 - 10.3 mg/dL Bilirubin, total <0.2 0.1 - 1.2 mg/dL Protein, pl 6.4 (L) 6.5 - 8.5 g/dL Albumin 2.1 (L) 3.5 - 5.0 g/dL Alk phos 176 (H) 40 - 130 Units/L ALT 21 7 - 45 Units/L AST 33 10 - 45 Units/L Phosphorus Collection Time: 01/09/20 4:15 AM Result Value Ref Range Phosphorus, pl 3.0 2.3 - 4.5 mg/dL Magnesium Collection Time: 01/09/20 4:15 AM Result Value Ref Range Magnesium 2.1 1.4 - 2.5 mg/dL CRP (acute phase) Collection Time: 01/09/20 4:15 AM Result Value Ref Range C-RP 172.5 (H) <=10.0 mg/L Differential, auto Collection Time: 01/09/20 4:15 AM Result Value Ref Range Neutrophil abs 9.2 (H) 1.7 - 6.5 K/cumm Imm gran abs 0.1 0.0 - 0.1 K/cumm Lymphocyte abs 2.5 0.8 - 3.3 K/cumm Monocyte abs 0.9 (H) 0.2 - 0.8 K/cumm Eosinophil abs 0.2 0.0 - 0.5 K/cumm Basophil abs 0.0 0.0 - 0.1 K/cumm Neutrophil pct 71.3 % Imm gran pct 1.0 % Lymphocyte pct 19.0 % Monocyte pct 7.1 % Eosinophil pct 1.3 % Basophil pct 0.3 % eGFR Collection Time: 01/09/20 4:15 AM Result Value Ref Range GFR 72 mL/min/1.73 m2 POCT glucose Collection Time: 01/09/20 7:58 AM Result Value Ref Range Glucose, POC 131 (H) 71 - 98 mg/dL POCT glucose Collection Time: 01/09/20 11:32 AM Result Value Ref Range Glucose, POC 183 (H) 71 - 98 mg/dL Xr Foot Right 3 Or More Views Result Date: 12/15/2019 Narrative: EXAMINATION: XR FOOT RIGHT 3 OR MORE VIEWS ORDERING HEALTHCARE PROVIDER: ISAEL DICK HISTORY: xr foot. 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 Patient poor historian, bandages placed. TECHNIQUE: Right foot 3 views. COMPARISON: None cornell ilable FINDINGS: BONES/JOINTS: The bone mineralization is normal. There is no acute fracture or dislocation. Oblique view, there is cortical indistinctness at the 1st distal phalangeal base and at the adjacent 1st proximal phalangeal head. These raise concern for osteomyelitis if there is overlyingsoft tissue ulceration. If this is of strong clinical concern, MRI could be considered. 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 SOFT TISSUES: No acute findings. No radiopaque foreign body. OTHER: Vascular calcifications. Impression: Cortical indistinctness at the 1st proximal phalangeal head and distal phalangeal base,raising concern for osteomyelitis if there is overlying skin ulceration. Electronically signed by: Eliseo Cedeño M.D. Mri Foot Right W Wo Contrast Result Date: 12/27/2019 Narrative: Patient Name: DENASIXTO Moreira Dr: Guy Walsh MD, D.O.B: 1950 Exam Date: 12/26/192044 Age: 69 Sex: Female MR#: [id number] Loc: RADIOLOGY REPORT Order #[id number] Magnetic Resonance Imaging MRI Foot Right W/WO Contrast Signed EXAM DESCRIPTION: MRI Foot Right W/WO Contrast REASON FOR STUDY: Wounds to dorsal/plantar surfaces between all toes. Wounds began in July shortly after getting nails trimmed. TECHNIQUE: Multiplanar, multisequence MRI of the right foot was performed before and after contrast. CONTRAST TYPE/DOSE: 11 cc Dotarem injected through the left antecubital fossa through a 23 gauge IV COMPARISON: None FINDINGS: Bones: Slightly fragmented appearance of the 1st distal phalanx, likely related to old injury. There is mild bone marrow edema at the 1st interphalangeal joint. There is subchondral cystic change about the 1st metatarsal head-likely degenerative in nature. There is T1 marrow signal replacement about the 4th proximal phalanx with associated bone marrow edema. Findings are concerning for osteomyelitis in the appropriate setting. There are similar but less pronounced findings atthe 4th middle phalanx. The 4th distal phalanx demonstrate T1 marrow signal, however, has edema. This is likely reactive. There is additional bone marrow edema noted at the 2nd proximal and middle phalanx which is nonspecific and may be related to osteitis. Articulations: There is scattered osteoarthritis, most severe at the 1st metatarsophalangeal joint with subchondral cystic change about the 1st metatarsal head and opposing medial hallux sesamoid. Soft Tissues: Diffuse nonspecific soft tissue edema centered over dorsum of the foot. Diffuse plantar intramuscular edema. Small amount of intermetatarsal bursal fluid is noted at the 1st web space. Tendons: The flexor and extensor tendons are intact. Lisfranc Ligament: Intact. Post Contrast Findings: Enhancement is noted at the 1st distal phalanx, 2nd proximal, middle, and distal phalanges, 4th proximal mid and distal phalanx. A central portion of the 4th proximal phalanx appears to be nonenhancing which may be reflective of an area of chronic osteomyelitis. No identifiable fluid collection or abscess. Other: No other finding. IMPRESSION: 1. Abnormal T1 marrow signal within the 4th proximal and middle phalanx with associated edema. Findings are compatible with osteomyelitis. Given appearance of central nonenhancement within the 4thproximal phalanx, this may be related to an acute on chronic process. Recommend correlation with physical examination and clinical history. 2. Bone marrow edema is also noted about the 1st distal and 2nd proximal through distal phalanges without T1 signal replacement. Findings are likely related to reactive osteitis though early osteomyelitis is not excluded in the appropriate clinical setting and ulceration. 3. 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 THIS IS AN ELECTRONICALLY VERIFIED FINAL REPORT 12/27/2019 1:44 PM - Electronically signed by Naun BROWNE T: Report ID: [id number] Reading Location: [place] [id number] REPORT ELECTRONICALLY SIGNED IN OTHER VENDOR SYSTEM Us Arterial Doppler Lower Extremity Bilateral Result Date: 01/05/2020 Narrative: EXAMINATION: US ARTERIAL DOPPLER LOWER EXTREMITY BILATERAL ORDERING HEALTHCARE PROVIDER:EMILE ESCUDERO HISTORY: Atherosclerosis of [place] Arteries of Extremities with Intermittent Claudication, Bilateral Leg. Right foot ulcer for one month. COMPARISON: None available TECHNIQUE: Sonographic evaluation of the bilateral lower extremities with ankle-brachial index calculations. FINDINGS:The individual pressures are as follows: Right brachial artery: 115 mmHg. Right proximal thigh: 171mmHg. Right distal thigh: 158 mmHg. Right proximal le mmHg. Right posterior tibial artery: 137 mmHg. Right dorsalis pedis artery: 132 mmHg. Right ankle/brachial index: 1.19. There are multiphasic right posterior tibial artery waveforms. Left brachial artery: 109 mmHg. Left proximal thigh: 161mmHg. Left distal thigh: 148 mmHg. Left proximal le mmHg. Left posterior tibial artery: 128 mmHg. Left dorsalis pedis artery: 125 mmHg. Left ankle/brachial index: 1.11. There are multiphasic left posterior tibial artery waveforms. Impression: 1. Normal right ankle brachial index. 2. Normal left ankle brachial index. Electronically signed by: Eliseo Cedeño M.D. Assessment: 1. POD #3 s/p R 4th toe amputation with bone biopsy R hallux. 2. Multiple DFU R foot ?? Plan: 1. Dressing changed today, betadine with DSD. 2. Continue IV antibiotics. ID is planning to treat for 6 weeks. 3. Will follow until discharge. Afrter discharge patient will require outpatient f/u with [facility] Destin Pepper DPM * Anabel Palmer, [facility] - 01/09/2020 6:44 AM CDT Vancomycin order of 750 mg IV every 12 hours is still active for indication of bone/joint infection. Patient's labs for today are: BUN: 11 Serum creatinine: 0.83 mg/dL 01/09/20 0415 Estimated creatinine clearance: 50.6 mL/min WBC: 12.9 Patient's Scr trend: Select one: Appears stable Labs, notes, medications and microbiology results have been reviewed. MRSA , sensitive to vanc Next level is ordered for: 01/10 400 Pharmacy will continue to monitor daily. Thank you, Anabel Palmer RPh [facility] Pharmacy department * Mathew Mccullough MD - 01/09/2020 6:37 AM CDT General Medicine Daily Progress SUBJECTIVE Chief complaint of Right diabetic foot gangrenous toes. Interval History: Right diabetic foot gangrenous toes. OBJECTIVE Vitals: 24hr Min/Max: Temp Min: 36.7 ??C (98 ??F) Max: 36.9 ??C (98.4 ??F) Pulse Min: 78 Max: 86 BP Min: 105/75 Max: 147/66 Resp Min: 18 Max: 20 SpO2 Min: 91 % Max: 96 % Most Recent : Vitals: 01/08/20 2325 BP: 147/66 Pulse: 86 Resp: 18 Temp: 36.9 ??C (98.4 ??F) SpO2: 91% I/O last 2 completed shifts: In: 3220 [P.O.:3220] Out: - I/O this shift: In: 245 [P.O.:240; I.V.:5] Out: 200 [Urine:200] Physical Exam: Eyes: EOMI, SB, sclare non icteric Neck: supple, no nuchal ridigity, no gross carotid bruits appreciated Pharynx: No gross oral lesion, tongue midline, mucosa moist Lungs CTA Heart: [id number] Abd: +BS, Non Tender, Non distended, No gross hepatomegaly Lower Ext: No gross edema Neuro: No new gross deficits appreciated Musculoskeletal: no gross joint erythema, edema, tenderness Skin: inter-toes skin ulceration with discharge of the right foot Lab/Current Medication Review: Recent Results (from the past 24 hour(s)) POCT glucose Collection Time: 01/08/20 8:00 AM Result Value Ref Range Glucose, POC 172 (H) 71 - 98 mg/dL POCT glucose Collection Time: 01/08/20 11:53 AM Result Value Ref Range Glucose, POC 178 (H) 71 - 98 mg/dL Vancomycin, trough Collection Time: 01/08/20 3:50 PM Result Value Ref Range Vancomycin, trough 6.5 (L) 15.0 - 20.0 mcg/mL POCT glucose Collection Time: 01/08/20 4:48 PM Result Value Ref Range Glucose, POC 219 (H) 71 - 98 mg/dL POCT glucose Collection Time: 01/08/20 8:32 PM Result Value Ref Range Glucose, POC 262 (H) 71 - 98 mg/dL POCT glucose Collection Time: 01/09/20 2:55 AM Result Value Ref Range Glucose, POC 199 (H) 71 - 98 mg/dL CBC with auto differential Collection Time: 01/09/20 4:15 AM Result Value Ref Range WBC 12.9 (H) 3.8 - 9.9 K/cumm Hgb 7.9 (L) 11.9 - 15.5 g/dL Hct 24.6 (L) 35.6 - 45.5 % Plt 400 150 - 400 K/cumm MPV 9.6 9.1 - 12.3 fL RBC 2.71 (L) 3.90 - 5.20 M/cumm MCV 90.8 81.3 - 96.4 fL MCH 29.2 27.1 - 33.3 pg MCHC 32.1 (L) 32.3 - 35.7 g/dL RDW CV 14.2 11.1 - 14.9 % RDW SD 46.2 35.7 - 48.1 fL NRBC abs 0.14 (H) 0.00 - 0.01 K/cumm Comprehensive metabolic panel Collection Time: 01/09/20 4:15 AM Result Value Ref Range Sodium 139 135 - 145 mmol/L Potassium, pl 4.1 3.3 - 4.9 mmol/L Chloride 105 97 - 110 mmol/L CO2 26 22 - 32 mmol/L Anion gap 8 2 - 15 mmol/L BUN 11 8 - 25 mg/dL Creatinine 0.83 0.60 - 1.10 mg/dL Glucose 162 70 - 199 mg/dL Calcium 8.7 8.5 - 10.3 mg/dL Bilirubin, total <0.2 0.1 - 1.2 mg/dL Protein, pl 6.4 (L) 6.5 - 8.5 g/dL Albumin 2.1 (L) 3.5 - 5.0 g/dL Alk phos 176 (H) 40 - 130 Units/L ALT 21 7 - 45 Units/L AST 33 10 - 45 Units/L Phosphorus Collection Time: 01/09/20 4:15 AM Result Value Ref Range Phosphorus, pl 3.0 2.3 - 4.5 mg/dL Magnesium Collection Time: 01/09/20 4:15 AM Result Value Ref Range Magnesium 2.1 1.4 - 2.5 mg/dL CRP (acute phase) Collection Time: 01/09/20 4:15 AM Result Value Ref Range C-RP 172.5 (H) <=10.0 mg/L Differential, auto Collection Time: 01/09/20 4:15 AM Result Value Ref Range Neutrophil abs 9.2 (H) 1.7 - 6.5 K/cumm Imm gran abs 0.1 0.0 - 0.1 K/cumm Lymphocyte abs 2.5 0.8 - 3.3 K/cumm Monocyte abs 0.9 (H) 0.2 - 0.8 K/cumm Eosinophil abs 0.2 0.0 - 0.5 K/cumm Basophil abs 0.0 0.0 - 0.1 K/cumm Neutrophil pct 71.3 % Imm gran pct 1.0 % Lymphocyte pct 19.0 % Monocyte pct 7.1 % Eosinophil pct 1.3 % Basophil pct 0.3 % eGFR Collection Time: 01/09/20 4:15 AM Result Value Ref Range GFR 72 mL/min/1.73 m2 Current Facility-Administered Medications Medication Dose Route Frequency Provider Last Rate Last Dose ??? acetaminophen (TYLENOL) tablet 650 mg 650 mg oral Q4H PRN Emile Escudero MD 650 mg at 01/07/202108 ??? amLODIPine (NORVASC) tablet 5 mg 5 mg oral Daily Emile Escudero MD 5 mg at 01/07/20 0903 ??? benzonatate (TESSALON) capsule 100 mg 100 mg oral Q8H PRN Emile Escudero MD 100 mg at 01/06/20 0524 ??? bisacodyl EC (DULCOLAX EC) tablet 10 mg 10 mg oral Daily PRN Mathew Mccullough MD ??? dextrose gel in packet 15 g 15 g oral Q15 Min PRN Emile Escudero MD Or ??? dextrose (D10W) 10% bolus 250 mL 250 mL intravenous Q15 Min PRN Emile Escudero MD ??? docusate sodium (COLACE) capsule 100 mg 100 mg oral BID PRN Emile Escudero MD ??? enoxaparin (LOVENOX) syringe 40 mg 40 mg subcutaneous Daily-2100 Emile Escudero MD 40 mg at 01/08/202032 ??? gabapentin (NEURONTIN) capsule 400 mg 400 mg oral TID Emile Escudero MD 400 mg at 01/08/202032 ??? glucagon injection 1 mg 1 mg intramuscular Q30 Min PRN Emile Escudero MD ??? hydrALAZINE (APRESOLINE) injection 10 mg 10 mg intravenous Q4H PRN Emlie Escudero MD ??? HYDROcodone-acetaminophen (NORCO) 5-325 mg per tablet 1 tablet 1 tablet oral Q4H PRN Emile Escudero MD 1 tablet at 01/08/202036 ??? insulin glargine (LANTUS,BASAGLAR) pen injection 32 Units 32 Units subcutaneous Nightly Mathew Mccullough MD 32 Units at 01/08/202032 ??? insulin lispro (HumaLOG) pen injection 1-4 Units 1-4 Units subcutaneous Nightly Emile Escudero MD 4 Units at 01/08/202031 ??? insulin lispro (HumaLOG) pen injection 1-7 Units 1-7 Units subcutaneous TID with meals Emile Escudero MD 5 Units at 01/08/201720 ??? lisinopriL (PRINIVIL,ZESTRIL) tablet 10 mg 10 mg oral Daily Emile Escudero MD 10 mg at 01/07/20 0903 ??? magnesium hydroxide (MILK OF MAGNESIA) 80 mg/mL (33.3 mg/mL as elemental magnesium) oral suspension 30 mL 30 mL oral Daily PRN Mathew Mccullough MD 30 mL at 01/06/20 2233 ??? mineral oil (FLEET MINERAL OIL) enema 1 enema 1 enema rectal Daily PRN Mathew Mccullough MD ??? ondansetron ODT (ZOFRAN-ODT) disintegrating tablet 4 mg 4 mg oral Q6H PRN Emile Escudero MD Or ??? ondansetron (ZOFRAN) injection 4 mg 4 mg intravenous Q6H PRN Emile Escudero MD 4 mg at 01/06/20 1101 ??? oxyCODONE (ROXICODONE) tablet 5 mg 5 mg oral Q4H PRN Emile Escudero MD 5 mg at 01/05/20 0827 ??? sodium chloride 0.9% flush 0.5-20 mL 0.5-20 mL intra-catheter Q8H Mathew Mccullough MD 10 mL at 01/09/20 0455 ??? sodium chloride 0.9% flush 0.5-20 mL 0.5-20 mL intra-catheter PRN Mathew Mccullough MD ??? vancomycin 750 mg/150 mL in sodium chloride 0.9% (premix) 750 mg 750 mg intravenous Q12H Mathew Mccullough MD 750 mg at 01/09/20 0455 A/P: 1. Right diabetic foot osteomyelitis: on cipro, flagyl, vanc. Will go for MRI and TEO with arterialdoppler, podiatry consulted and ID 2. DM II: not well controlled, added insulin regimen, monitor 3. HTN: controlled on home meds 4. Schizophrenia: resumed home meds Summary and daily updates: 01/05: Cancelled MRI as the recent one is just 10 days ago. $th toes osteomyelitis is evident. TEO showed normal pressure, arteiral doppler is pending For Amputation by podiatry, WbC are still 15, no fever, cultures are negative so far, continue ABX 01/06: Rt 4th toe amputated yesterday, developed a high fever after surgery, switched cipro to cefepime, blood cultures repeated. Will discuss with ID Tissue culture is growing MRSA, contineu vanc 01/07: MRSA in tissues, siked fever of 1014 this morning, blood culture is negative, WBC are still 15 ON vanc only, other ABx discontinued by ID. Monitor 01/08: WBC are down to 12, no fever, blood cultures are negative, Tissue culture showed CA-MRSA sensitive to bactrim, doxy, clinda. Will discuss with ID the chcf treatment plan Continue wound care per Podiatry Principal Problem: Acute osteomyelitis of toe of right foot (CMS/HCC) Active Problems: Schizophrenia (CMS/HCC) Diabetic neuropathy (CMS/HCC) Uncontrolled type 2 diabetes mellitus with hyperglycemia (CMS/HCC) Ulcer of toe of right foot, with fat layer exposed (CMS/HCC) Essential hypertension Mathew Mccullough MD 01/09/2020 6:37 AM * Becky Ng RPh - 01/08/2020 4:37 PM CDT Sixto Chakraborty has been consulted for vancomycin dosing for bone/joint infection. Increase vancomycin dose to 750 mg every 12 hours for subtherapeutic level of 6.5 on 01/08/2020. Next trough 0400 01/10/2020. Patient's labs for today are: BUN: 14 Serum creatinine: 0.98 mg/dL 01/08/20 0325 Estimated creatinine clearance: 42.9 mL/min WBC: 15.7 Patient's Scr trend: Select one: Appears stable Labs, notes, medications and microbiology results have been reviewed. Pharmacy will continue to monitor daily. Thank you, Becky Ng RPh [facility] Pharmacy department * Agus Golden DPM - 01/08/2020 11:28 AM CDT Podiatry Progress Note Subjective: Pt seen at bedside POD #2 S/p amp of R 4th toe and bone biopsy R Hallux. Pt is doing well with no complaints. Objective: Vital signs in last 24 hours: Temp: [36.1 ??C (96.9 ??F)-38.6 ??C (101.4 ??F)] 36.8 ??C (98.2 ??F) Pulse: [78-92] 78 Resp: [18-20] 20 BP: (105-117)/(44-75) 105/75 Gen: WDWN NAD Extremity: sutures in place L 4th toe amp site with mild maceration. Multiple stable interdigital ulcers present. C/s R 4th toe showed MRSA C/s R hallux shows staph sp. Data Review CBC: Recent Labs Lab Units 01/08/20 0325 WBC K/cumm 15.7* RBC M/cumm 2.65* HEMOGLOBIN g/dL 7.8* HEMATOCRIT % 24.0* Assessment: 1. POD #2 s/p R 4th toe amputation with bone biopsy R hallux. 2. Multiple DFU R foot Plan: 1. Dressing change today, betadine with DSD. 2. Continue IV antibiotics. ID is planning to treat for 6 weeks. 3. Will follow until discharge. Agus Golden DPM Date: 01/08/2020 Time: 11:28 AM * Anabel Palmer RPh - 01/08/2020 7:53 AM CDT Vancomycin order of 1000 mg IV every 24 hours is still active for indication of bone/joint infection. Patient's labs for today are: BUN: 14 Serum creatinine: 0.98 mg/dL 01/08/20 0325 Estimated creatinine clearance: 42.9 mL/min WBC: 15.7 Patient's Scr trend: Select one: Appears stable Labs, notes, medications and microbiology results have been reviewed. Confirmed MRSA in tissue cultures Next level is ordered for: 01/08 1600 Pharmacy will continue to monitor daily. Thank you, Anabel Palmer RPh [facility] Pharmacy department * Mathew Mccullough MD - 01/08/2020 7:34 AM CDT General Medicine Daily Progress SUBJECTIVE Chief complaint of Right diabetic foot gangrenous toes. Interval History: Right diabetic foot gangrenous toes. OBJECTIVE Vitals: 24hr Min/Max: Temp Min: 36.1 ??C (96.9 ??F) Max: 38.6 ??C (101.4 ??F) Pulse Min: 91 Max: 93 BP Min: 112/44 Max: 137/62 Resp Min: 18 Max: 20 SpO2 Min: 93 % Max: 93 % Most Recent : Vitals: 01/08/20 0335 BP: Pulse: Resp: Temp: 37.2 ??C (99 ??F) SpO2: I/O last 2 completed shifts: In: 2980 [P.O.:2980] Out: - No intake/output data recorded. Physical Exam: Eyes: EOMI, SB, sclare non icteric Neck: supple, no nuchal ridigity, no gross carotid bruits appreciated Pharynx: No gross oral lesion, tongue midline, mucosa moist Lungs CTA Heart: [id number] Abd: +BS, Non Tender, Non distended, No gross hepatomegaly Lower Ext: No gross edema Neuro: No new gross deficits appreciated Musculoskeletal: no gross joint erythema, edema, tenderness Skin: inter-toes skin ulceration with discharge of the right foot Lab/Current Medication Review: Recent Results (from the past 24 hour(s)) POCT glucose Collection Time: 01/07/20 7:54 AM Result Value Ref Range Glucose, POC 303 (H) 71 - 98 mg/dL POCT glucose Collection Time: 01/07/20 11:22 AM Result Value Ref Range Glucose, POC 344 (H) 71 - 98 mg/dL POCT glucose Collection Time: 01/07/20 11:55 AM Result Value Ref Range Glucose, POC 274 (H) 71 - 98 mg/dL POCT glucose Collection Time: 01/07/20 4:46 PM Result Value Ref Range Glucose, POC 288 (H) 71 - 98 mg/dL POCT glucose Collection Time: 01/07/20 8:48 PM Result Value Ref Range Glucose, POC 320 (H) 71 - 98 mg/dL POCT glucose Collection Time: 01/08/20 2:22 AM Result Value Ref Range Glucose, POC 261 (H) 71 - 98 mg/dL CBC with auto differential Collection Time: 01/08/20 3:25 AM Result Value Ref Range WBC 15.7 (H) 3.8 - 9.9 K/cumm Hgb 7.8 (L) 11.9 - 15.5 g/dL Hct 24.0 (L) 35.6 - 45.5 % Plt 412 (H) 150 - 400 K/cumm MPV 9.7 9.1 - 12.3 fL RBC 2.65 (L) 3.90 - 5.20 M/cumm MCV 90.6 81.3 - 96.4 fL MCH 29.4 27.1 - 33.3 pg MCHC 32.5 32.3 - 35.7 g/dL RDW CV 13.9 11.1 - 14.9 % RDW SD 45.8 35.7 - 48.1 fL NRBC abs 0.07 (H) 0.00 - 0.01 K/cumm Comprehensive metabolic panel Collection Time: 01/08/20 3:25 AM Result Value Ref Range Sodium 139 135 - 145 mmol/L Potassium, pl 4.0 3.3 - 4.9 mmol/L Chloride 105 97 - 110 mmol/L CO2 27 22 - 32 mmol/L Anion gap 7 2 - 15 mmol/L BUN 14 8 - 25 mg/dL Creatinine 0.98 0.60 - 1.10 mg/dL Glucose 222 (H) 70 - 199 mg/dL Calcium 8.6 8.5 - 10.3 mg/dL Bilirubin, total <0.2 0.1 - 1.2 mg/dL Protein, pl 6.5 6.5 - 8.5 g/dL Albumin 2.4 (L) 3.5 - 5.0 g/dL Alk phos 166 (H) 40 - 130 Units/L ALT 23 7 - 45 Units/L AST 38 10 - 45 Units/L Phosphorus Collection Time: 01/08/20 3:25 AM Result Value Ref Range Phosphorus, pl 3.2 2.3 - 4.5 mg/dL Magnesium Collection Time: 01/08/20 3:25 AM Result Value Ref Range Magnesium 2.2 1.4 - 2.5 mg/dL CRP (acute phase) Collection Time: 01/08/20 3:25 AM Result Value Ref Range C-RP 227.2 (H) <=10.0 mg/L Differential, auto Collection Time: 01/08/20 3:25 AM Result Value Ref Range Neutrophil abs 11.7 (H) 1.7 - 6.5 K/cumm Imm gran abs 0.2 (H) 0.0 - 0.1 K/cumm Lymphocyte abs 2.3 0.8 - 3.3 K/cumm Monocyte abs 1.3 (H) 0.2 - 0.8 K/cumm Eosinophil abs 0.2 0.0 - 0.5 K/cumm Basophil abs 0.1 0.0 - 0.1 K/cumm Neutrophil pct 74.4 % Imm gran pct 1.3 % Lymphocyte pct 14.7 % Monocyte pct 8.1 % Eosinophil pct 1.2 % Basophil pct 0.3 % eGFR Collection Time: 01/08/20 3:25 AM Result Value Ref Range GFR 59 mL/min/1.73 m2 Current Facility-Administered Medications Medication Dose Route Frequency Provider Last Rate Last Dose ??? acetaminophen (TYLENOL) tablet 650 mg 650 mg oral Q4H PRN Emile Escudero MD 650 mg at 01/07/202108 ??? amLODIPine (NORVASC) tablet 5 mg 5 mg oral Daily Emile Escudero MD 5 mg at 01/07/20 0903 ??? benzonatate (TESSALON) capsule 100 mg 100 mg oral Q8H PRN Emile Escudero MD 100 mg at 01/06/20 0524 ??? bisacodyl EC (DULCOLAX EC) tablet 10 mg 10 mg oral Daily PRN Mathew Mccullough MD ??? dextrose gel in packet 15 g 15 g oral Q15 Min PRN Emile Escudero MD Or ??? dextrose (D10W) 10% bolus 250 mL 250 mL intravenous Q15 Min PRN Emile Escudero MD ??? docusate sodium (COLACE) capsule 100 mg 100 mg oral BID PRN Emile Escudero MD ??? enoxaparin (LOVENOX) syringe 40 mg 40 mg subcutaneous Daily-2100 Emile Escudero MD 40 mg at 01/07/202105 ??? gabapentin (NEURONTIN) capsule 400 mg 400 mg oral TID Emile Escudero MD 400 mg at 01/07/202105 ??? glucagon injection 1 mg 1 mg intramuscular Q30 Min PRN Emile Escudero MD ??? hydrALAZINE (APRESOLINE) injection 10 mg 10 mg intravenous Q4H PRN Emile Escudero MD ??? HYDROcodone-acetaminophen (NORCO) 5-325 mg per tablet 1 tablet 1 tablet oral Q4H PRN Emile Escudero MD 1 tablet at 01/07/20 1143 ??? insulin glargine (LANTUS,BASAGLAR) pen injection 32 Units 32 Units subcutaneous Nightly Mathew Mccullough MD 32 Units at 01/07/20 2106 ??? insulin lispro (HumaLOG) pen injection 1-4 Units 1-4 Units subcutaneous Nightly Emile Escudero MD 4 Units at 01/07/20 2113 ??? insulin lispro (HumaLOG) pen injection 1-7 Units 1-7 Units subcutaneous TID with meals Emile Escudero MD 7 Units at 01/07/20 1736 ??? lisinopriL (PRINIVIL,ZESTRIL) tablet 10 mg 10 mg oral Daily Emile Escudero MD 10 mg at 01/07/20 0903 ??? magnesium hydroxide (MILK OF MAGNESIA) 80 mg/mL (33.3 mg/mL as elemental magnesium) oral suspension 30 mL 30 mL oral Daily PRN aMthew Mccullough MD 30 mL at 01/06/20 2233 ??? mineral oil (FLEET MINERAL OIL) enema 1 enema 1 enema rectal Daily PRN Mathew Mccullough MD ??? ondansetron ODT (ZOFRAN-ODT) disintegrating tablet 4 mg 4 mg oral Q6H PRN Emile Escudero MD Or ??? ondansetron (ZOFRAN) injection 4 mg 4 mg intravenous Q6H PRN Emile Escudero MD 4 mg at 01/06/20 1101 ??? oxyCODONE (ROXICODONE) tablet 5 mg 5 mg oral Q4H PRN Emile Escudero MD 5 mg at 01/05/20 0827 ??? sodium chloride 0.9% flush 0.5-20 mL 0.5-20 mL intra-catheter Q8H Mathew Mccullough MD 10 mL at 01/07/20 1733 ??? sodium chloride 0.9% flush 0.5-20 mL 0.5-20 mL intra-catheter PRN Mathew Mccullough MD ??? vancomycin 1,000 mg/200 mL in sodium chloride 0.9% (premix) 1,000 mg 1,000 mg intravenous Q24H Mathew Mccullough MD 1,000 mg at 01/07/20 1741 A/P: 1. Right diabetic foot osteomyelitis: on cipro, flagyl, vanc. Will go for MRI and TEO with arterialdoppler, podiatry consulted and ID 2. DM II: not well controlled, added insulin regimen, monitor 3. HTN: controlled on home meds 4. Schizophrenia: resumed home meds Summary and daily updates: 01/05: Cancelled MRI as the recent one is just 10 days ago. $th toes osteomyelitis is evident. TEO showed normal pressure, arteiral doppler is pending For Amputation by podiatry, WbC are still 15, no fever, cultures are negative so far, continue ABX 01/06: Rt 4th toe amputated yesterday, developed a high fever after surgery, switched cipro to cefepime, blood cultures repeated. Will discuss with ID Tissue culture is growing MRSA, contineu vanc 01/07: MRSA in tissues, siked fever of 1014 this morning, blood culture is negative, WBC are still 15 ON vanc only, other ABx discontinued by ID. monitor Principal Problem: Acute osteomyelitis of toe of right foot (CMS/HCC) Active Problems: Schizophrenia (CMS/HCC) Diabetic neuropathy (CMS/HCC) Uncontrolled type 2 diabetes mellitus with hyperglycemia (CMS/HCC) Ulcer of toe of right foot, with fat layer exposed (CMS/HCC) Essential hypertension Mathew Mccullough MD 01/08/2020 7:34 AM * Kelly Lynch NP - 01/07/2020 12:03 PM CDT Progress Note Infectious Diseases Chief complaint: Right foot osteomyelitis Subjective Patient is POD#1 right 4th digit amputation and wound debridement. Bone cultures obtained from 4th proximal phalanx and right hallux are positive for MRSA. Patient had fever of 102.5 yesterday, currently afebrile. WBC 16.3. Repeat blood cultures obtained yesterday remain negative. Patient reports some right foot pain at this time. Denies additional complaints. Objective Vitals: 01/07/20 0752 BP: 137/62 Pulse: 93 Resp: 18 Temp: 36.4 ??C (97.5 ??F) SpO2: 93% Constitutional: Alert, oriented x3. In no acute distress Eyes: Sclerae anicteric, no conjunctival erythema Lungs: Clear breath sounds, no crackles, no wheezes Heart: Regular rate and rhythm, no murmurs Abdomen: Bowel sounds present, soft, nontender Skin: Warm and dry, No rashes Extremities: No edema. Surgical dressing intact to right foot, no drainage Neuro: No motor deficit Psych: No anxiety Current Medications: Current Facility-Administered Medications Medication Dose Route Frequency Provider Last Rate Last Dose ??? acetaminophen (TYLENOL) tablet 650 mg 650 mg oral Q4H PRN Emile Escudero MD 650 mg at 01/06/20 1758 ??? amLODIPine (NORVASC) tablet 5 mg 5 mg oral Daily Emile Escudero MD 5 mg at 01/07/20 0903 ??? benzonatate (TESSALON) capsule 100 mg 100 mg oral Q8H PRN Emile Escudero MD 100 mg at 01/06/20 0524 ??? bisacodyl EC (DULCOLAX EC) tablet 10 mg 10 mg oral Daily PRN Mathew Mccullough MD ??? cefepime (MAXIPIME) 2,000 mg in sodium chloride 0.9% 100 mL IVPB 2,000 mg intravenous Q12H [facility] Mathew Mccullough MD 200 mL/hr at 01/07/20 0904 2,000 mg at 01/07/20 0904 ??? dextrose gel in packet 15 g 15 g oral Q15 Min PRN Emile Escudero MD Or ??? dextrose (D10W) 10% bolus 250 mL 250 mL intravenous Q15 Min PRN Emile Escudero MD ??? docusate sodium (COLACE) capsule 100 mg 100 mg oral BID PRN Emile Escudero MD ??? enoxaparin (LOVENOX) syringe 40 mg 40 mg subcutaneous Daily-2100 Emile Escudero MD 40 mg at 01/06/202106 ??? gabapentin (NEURONTIN) capsule 400 mg 400 mg oral TID Emile Escudero MD 400 mg at 01/07/20 0903 ??? glucagon injection 1 mg 1 mg intramuscular Q30 Min PRN Emile Escudero MD ??? hydrALAZINE (APRESOLINE) injection 10 mg 10 mg intravenous Q4H PRN Emile Escudero MD ??? HYDROcodone-acetaminophen (NORCO) 5-325 mg per tablet 1 tablet 1 tablet oral Q4H PRN Emile Escudero MD 1 tablet at 01/07/20 1143 ??? insulin glargine (LANTUS,BASAGLAR) pen injection 32 Units 32 Units subcutaneous Nightly Mathew Mccullough MD 32 Units at 01/06/202228 ??? insulin lispro (HumaLOG) pen injection 1-4 Units 1-4 Units subcutaneous Nightly Emile Escudero MD 3 Units at 01/06/20 223 ??? insulin lispro (HumaLOG) pen injection 1-7 Units 1-7 Units subcutaneous TID with meals Emile Escudero MD 7 Units at 01/07/20 0902 ??? lisinopriL (PRINIVIL,ZESTRIL) tablet 10 mg 10 mg oral Daily Emile Escudero MD 10 mg at 01/07/20 0903 ??? magnesium hydroxide (MILK OF MAGNESIA) 80 mg/mL (33.3 mg/mL as elemental magnesium) oral suspension 30 mL 30 mL oral Daily PRN Mathew Mccullough MD 30 mL at 01/06/20 2233 ??? metroNIDAZOLE (FLAGYL) 500 mg/100 mL in sodium chloride (premix) 500 mg 500 mg intravenous Q8H SOL Emile Escudero MD 200 mL/hr at 01/07/20 0525 500 mg at 01/07/20 0525 ??? mineral oil (FLEET MINERAL OIL) enema 1 enema 1 enema rectal Daily PRN Mathew Mccullough MD ??? ondansetron ODT (ZOFRAN-ODT) disintegrating tablet 4 mg 4 mg oral Q6H PRN Emile Escudero MD Or ??? ondansetron (ZOFRAN) injection 4 mg 4 mg intravenous Q6H PRN Emile Escudero MD 4 mg at 01/06/20 1101 ??? oxyCODONE (ROXICODONE) tablet 5 mg 5 mg oral Q4H PRN Emile Escudero MD 5 mg at 01/05/20 0827 ??? sodium chloride 0.9% flush 0.5-20 mL 0.5-20 mL intra-catheter Q8H Mathew Mccullough MD 10 mL at 01/07/20 0526 ??? sodium chloride 0.9% flush 0.5-20 mL 0.5-20 mL intra-catheter PRN Mathew Mccullough MD ??? sodium phosphate - potassium phosphate (K-PHOS NEUTRAL) tablet 500 mg 500 mg oral TID with meals Mathew Mcculluogh MD 500 mg at 01/07/20 0911 ??? vancomycin 1,000 mg/200 mL in sodium chloride 0.9% (premix) 1,000 mg 1,000 mg intravenous Q24H Mathew Mccullough MD 1,000 mg at 01/06/20 1826 Allergies: No Known Allergies Social History Social History Socioeconomic History ??? Marital status: [...] file Gets together: Not on file Attends druze service: Not on file Active member of [...] History Narrative ??? Not on file Family Medical History Family History Problem Relation Age of Onset ??? Stomach cancer Father Imaging No results found. Labs Recent Results (from the past 24 hour(s)) POCT glucose Collection Time: 01/06/20 12:07 PM Result Value Ref Range Glucose, POC 211 (H) 71 - 98 mg/dL Tissue aerobic and anaerobic culture and gram stain Biopsy Toe, great, right Collection Time: 01/06/20 1:00 PM Result Value Ref Range Direct Specimen Exam Stain: No polymorphonuclear leukocytes seen. No organisms seen. Report (.) Preliminary Report: Rare Staphylococcus aureus For susceptibility results, refer to accession number [id number] on the right toe bone culture from 01/06/2020 Organism STAPHYLOCOCCUS AUREUS Tissue aerobic and anaerobic culture and gram stain Bone Toe, fourth, right Collection Time: 01/06/20 1:02 PM Result Value Ref Range Direct Specimen Exam Stain: No polymorphonuclear leukocytes seen. Few Gram Positive Cocci Report (.) Preliminary Report: Moderate Staphylococcus aureus Methicillin resistant (MRSA) by penicillin binding protein 2a (PBP2a) testing. Susceptibility testing results to follow. Organism STAPHYLOCOCCUS AUREUS POCT glucose Collection Time: 01/06/20 1:26 PM Result Value Ref Range Glucose, POC 186 (H) 71 - 98 mg/dL POCT glucose Collection Time: 01/06/20 2:06 PM Result Value Ref Range Glucose, POC 205 (H) 71 - 98 mg/dL POCT glucose Collection Time: 01/06/20 4:41 PM Result Value Ref Range Glucose, POC 177 (H) 71 - 98 mg/dL Vancomycin, trough Collection Time: 01/06/20 4:45 PM Result Value Ref Range Vancomycin, trough 6.1 (L) 15.0 - 20.0 mcg/mL POCT glucose Collection Time: 01/06/20 9:22 PM Result Value Ref Range Glucose, POC 229 (H) 71 - 98 mg/dL POCT glucose Collection Time: 01/07/20 2:25 AM Result Value Ref Range Glucose, POC 224 (H) 71 - 98 mg/dL CBC with auto differential Collection Time: 01/07/20 3:32 AM Result Value Ref Range WBC 16.3 (H) 3.8 - 9.9 K/cumm Hgb 8.2 (L) 11.9 - 15.5 g/dL Hct 25.8 (L) 35.6 - 45.5 % Plt 406 (H) 150 - 400 K/cumm MPV 9.8 9.1 - 12.3 fL RBC 2.81 (L) 3.90 - 5.20 M/cumm MCV 91.8 81.3 - 96.4 fL MCH 29.2 27.1 - 33.3 pg MCHC 31.8 (L) 32.3 - 35.7 g/dL RDW CV 13.9 11.1 - 14.9 % RDW SD 46.9 35.7 - 48.1 fL NRBC abs 0.04 (H) 0.00 - 0.01 K/cumm Comprehensive metabolic panel Collection Time: 01/07/20 3:32 AM Result Value Ref Range Sodium 139 135 - 145 mmol/L Potassium, pl 4.3 3.3 - 4.9 mmol/L Chloride 107 97 - 110 mmol/L CO2 25 22 - 32 mmol/L Anion gap 7 2 - 15 mmol/L BUN 15 8 - 25 mg/dL Creatinine 0.90 0.60 - 1.10 mg/dL Glucose 221 (H) 70 - 199 mg/dL Calcium 8.7 8.5 - 10.3 mg/dL Bilirubin, total 0.4 0.1 - 1.2 mg/dL Protein, pl 6.8 6.5 - 8.5 g/dL Albumin 2.6 (L) 3.5 - 5.0 g/dL Alk phos 153 (H) 40 - 130 Units/L ALT 22 7 - 45 Units/L AST 37 10 - 45 Units/L Phosphorus Collection Time: 01/07/20 3:32 AM Result Value Ref Range Phosphorus, pl 1.8 (L) 2.3 - 4.5 mg/dL Magnesium Collection Time: 01/07/20 3:32 AM Result Value Ref Range Magnesium 2.2 1.4 - 2.5 mg/dL CRP (acute phase) Collection Time: 01/07/20 3:32 AM Result Value Ref Range C-RP 244.7 (H) <=10.0 mg/L Differential, auto Collection Time: 01/07/20 3:32 AM Result Value Ref Range Neutrophil abs 13.0 (H) 1.7 - 6.5 K/cumm Imm gran abs 0.1 0.0 - 0.1 K/cumm Lymphocyte abs 1.6 0.8 - 3.3 K/cumm Monocyte abs 1.5 (H) 0.2 - 0.8 K/cumm Eosinophil abs 0.1 0.0 - 0.5 K/cumm Basophil abs 0.1 0.0 - 0.1 K/cumm Neutrophil pct 79.7 % Imm gran pct 0.9 % Lymphocyte pct 9.6 % Monocyte pct 9.1 % Eosinophil pct 0.4 % Basophil pct 0.3 % eGFR Collection Time: 01/07/20 3:32 AM Result Value Ref Range GFR 65 mL/min/1.73 m2 POCT glucose Collection Time: 01/07/20 7:54 AM Result Value Ref Range Glucose, POC 303 (H) 71 - 98 mg/dL POCT glucose Collection Time: 01/07/20 11:22 AM Result Value Ref Range Glucose, POC 344 (H) 71 - 98 mg/dL POCT glucose Collection Time: 01/07/20 11:55 AM Result Value Ref Range Glucose, POC 274 (H) 71 - 98 mg/dL Assessment/Plan Principal Problem: Acute osteomyelitis of toe of right foot (CMS/HCC) Active Problems: Schizophrenia (CMS/HCC) Diabetic neuropathy (CMS/HCC) Uncontrolled type 2 diabetes mellitus with hyperglycemia (CMS/HCC) Ulcer of toe of right foot, with fat layer exposed (CMS/HCC) Essential hypertension Sixto Chakraborty is a 69-year old female with PMH positive for DM type II, peripheral neuropathy, and chronic diabetic foot ulcerations with underlying osteomyelitis involving the right hallux and right 4th digit. She is now s/p amputation of right 4th digit. Bone cultures are positive for MRSA. Patient will require long-term IV antibiotics. We will continue IV vancomycin at this time and stop cefepime and flagyl. She had temp of 102.5 yesterday. Repeat blood cultures obtained yesterday remain negative. Plans for PICC line placement once blood cultures have been negative for 48 hours. She is clinically stable and afebrile at this time. Will follow susceptibility testing before placing final recommendations. Kelly Lynch NP [place] [facility] [phone] Cosigned by Erna Anthony MD at 01/09/2020 9:09 AM CDT * Mathew Mccullough MD - 01/07/2020 7:20 AM CDT General Medicine Daily Progress SUBJECTIVE Chief complaint of Right diabetic foot gangrenous toes. Interval History: Right diabetic foot gangrenous toes. OBJECTIVE Vitals: 24hr Min/Max: Temp Min: 36.4 ??C (97.5 ??F) Max: 39.2 ??C (102.5 ??F) Pulse Min: 71 Max: 100 BP Min: 113/55 Max: 155/84 Resp Min: 14 Max: 22 SpO2 Min: 91 % Max: 100 % Most Recent : Vitals: 01/06/20 2242 BP: 114/56 Pulse: 100 Resp: 16 Temp: 36.4 ??C (97.6 ??F) SpO2: 91% I/O last 2 completed shifts: In: 4170 [P.O.:850; I.V.:3320] Out: 5 [Blood:5] No intake/output data recorded. Physical Exam: Eyes: EOMI, SB, sclare non icteric Neck: supple, no nuchal ridigity, no gross carotid bruits appreciated Pharynx: No gross oral lesion, tongue midline, mucosa moist Lungs CTA Heart: [id number] Abd: +BS, Non Tender, Non distended, No gross hepatomegaly Lower Ext: No gross edema Neuro: No new gross deficits appreciated Musculoskeletal: no gross joint erythema, edema, tenderness Skin: inter-toes skin ulceration with discharge of the right foot Lab/Current Medication Review: Recent Results (from the past 24 hour(s)) POCT glucose Collection Time: 01/06/20 8:06 AM Result Value Ref Range Glucose, POC 191 (H) 71 - 98 mg/dL POCT glucose Collection Time: 01/06/20 11:38 AM Result Value Ref Range Glucose, POC 245 (H) 71 - 98 mg/dL POCT glucose Collection Time: 01/06/20 12:07 PM Result Value Ref Range Glucose, POC 211 (H) 71 - 98 mg/dL Tissue aerobic and anaerobic culture and gram stain Biopsy Toe, great, right Collection Time: 01/06/20 1:00 PM Result Value Ref Range Direct Specimen Exam Stain: No polymorphonuclear leukocytes seen. No organisms seen. Tissue aerobic and anaerobic culture and gram stain Bone Toe, fourth, right Collection Time: 01/06/20 1:02 PM Result Value Ref Range Direct Specimen Exam (.) Stain: No polymorphonuclear leukocytes seen. Few Gram Positive Cocci POCT glucose Collection Time: 01/06/20 1:26 PM Result Value Ref Range Glucose, POC 186 (H) 71 - 98 mg/dL POCT glucose Collection Time: 01/06/20 2:06 PM Result Value Ref Range Glucose, POC 205 (H) 71 - 98 mg/dL POCT glucose Collection Time: 01/06/20 4:41 PM Result Value Ref Range Glucose, POC 177 (H) 71 - 98 mg/dL Vancomycin, trough Collection Time: 01/06/20 4:45 PM Result Value Ref Range Vancomycin, trough 6.1 (L) 15.0 - 20.0 mcg/mL POCT glucose Collection Time: 01/06/20 9:22 PM Result Value Ref Range Glucose, POC 229 (H) 71 - 98 mg/dL POCT glucose Collection Time: 01/07/20 2:25 AM Result Value Ref Range Glucose, POC 224 (H) 71 - 98 mg/dL CBC with auto differential Collection Time: 01/07/20 3:32 AM Result Value Ref Range WBC 16.3 (H) 3.8 - 9.9 K/cumm Hgb 8.2 (L) 11.9 - 15.5 g/dL Hct 25.8 (L) 35.6 - 45.5 % Plt 406 (H) 150 - 400 K/cumm MPV 9.8 9.1 - 12.3 fL RBC 2.81 (L) 3.90 - 5.20 M/cumm MCV 91.8 81.3 - 96.4 fL MCH 29.2 27.1 - 33.3 pg MCHC 31.8 (L) 32.3 - 35.7 g/dL RDW CV 13.9 11.1 - 14.9 % RDW SD 46.9 35.7 - 48.1 fL NRBC abs 0.04 (H) 0.00 - 0.01 K/cumm Comprehensive metabolic panel Collection Time: 01/07/20 3:32 AM Result Value Ref Range Sodium 139 135 - 145 mmol/L Potassium, pl 4.3 3.3 - 4.9 mmol/L Chloride 107 97 - 110 mmol/L CO2 25 22 - 32 mmol/L Anion gap 7 2 - 15 mmol/L BUN 15 8 - 25 mg/dL Creatinine 0.90 0.60 - 1.10 mg/dL Glucose 221 (H) 70 - 199 mg/dL Calcium 8.7 8.5 - 10.3 mg/dL Bilirubin, total 0.4 0.1 - 1.2 mg/dL Protein, pl 6.8 6.5 - 8.5 g/dL Albumin 2.6 (L) 3.5 - 5.0 g/dL Alk phos 153 (H) 40 - 130 Units/L ALT 22 7 - 45 Units/L AST 37 10 - 45 Units/L Phosphorus Collection Time: 01/07/20 3:32 AM Result Value Ref Range Phosphorus, pl 1.8 (L) 2.3 - 4.5 mg/dL Magnesium Collection Time: 01/07/20 3:32 AM Result Value Ref Range Magnesium 2.2 1.4 - 2.5 mg/dL CRP (acute phase) Collection Time: 01/07/20 3:32 AM Result Value Ref Range C-RP 244.7 (H) <=10.0 mg/L Differential, auto Collection Time: 01/07/20 3:32 AM Result Value Ref Range Neutrophil abs 13.0 (H) 1.7 - 6.5 K/cumm Imm gran abs 0.1 0.0 - 0.1 K/cumm Lymphocyte abs 1.6 0.8 - 3.3 K/cumm Monocyte abs 1.5 (H) 0.2 - 0.8 K/cumm Eosinophil abs 0.1 0.0 - 0.5 K/cumm Basophil abs 0.1 0.0 - 0.1 K/cumm Neutrophil pct 79.7 % Imm gran pct 0.9 % Lymphocyte pct 9.6 % Monocyte pct 9.1 % Eosinophil pct 0.4 % Basophil pct 0.3 % eGFR Collection Time: 01/07/20 3:32 AM Result Value Ref Range GFR 65 mL/min/1.73 m2 Current Facility-Administered Medications Medication Dose Route Frequency Provider Last Rate Last Dose ??? acetaminophen (TYLENOL) tablet 650 mg 650 mg oral Q4H PRN Emile Escudero MD 650 mg at 01/06/20 1758 ??? amLODIPine (NORVASC) tablet 5 mg 5 mg oral Daily Emile Escudero MD 5 mg at 01/06/20 0805 ??? benzonatate (TESSALON) capsule 100 mg 100 mg oral Q8H PRN Emile Escudero MD 100 mg at 01/06/20 0524 ??? bisacodyl EC (DULCOLAX EC) tablet 10 mg 10 mg oral Daily PRN Mathew Mccullough MD ??? cefepime (MAXIPIME) 2,000 mg in sodium chloride 0.9% 100 mL IVPB 2,000 mg intravenous Q12H [facility] Mathew Mccullough MD 200 mL/hr at 01/06/202106 2,000 mg at 01/06/202106 ??? dextrose gel in packet 15 g 15 g oral Q15 Min PRN Emile Escudero MD Or ??? dextrose (D10W) 10% bolus 250 mL 250 mL intravenous Q15 Min PRN Emile Escudero MD ??? docusate sodium (COLACE) capsule 100 mg 100 mg oral BID PRN Emile Escudero MD ??? enoxaparin (LOVENOX) syringe 40 mg 40 mg subcutaneous Daily-2100 Emile Escudero MD 40 mg at 01/06/202106 ??? gabapentin (NEURONTIN) capsule 400 mg 400 mg oral TID Emile Escudero MD 400 mg at 01/06/202106 ??? glucagon injection 1 mg 1 mg intramuscular Q30 Min PRN Emile Escudero MD ??? hydrALAZINE (APRESOLINE) injection 10 mg 10 mg intravenous Q4H PRN Emile Escudero MD ??? HYDROcodone-acetaminophen (NORCO) 5-325 mg per tablet 1 tablet 1 tablet oral Q4H PRN Emile Escudreo MD 1 tablet at 01/07/20 0611 ??? insulin glargine (LANTUS,BASAGLAR) pen injection 32 Units 32 Units subcutaneous Nightly Mathew Mccullough MD 32 Units at 01/06/20 2229 ??? insulin lispro (HumaLOG) pen injection 1-4 Units 1-4 Units subcutaneous Nightly Emile Escudero MD 3 Units at 01/06/20 2230 ??? insulin lispro (HumaLOG) pen injection 1-7 Units 1-7 Units subcutaneous TID with meals Emile Escudero MD 3 Units at 01/06/20 1708 ??? lisinopriL (PRINIVIL,ZESTRIL) tablet 10 mg 10 mg oral Daily Emile Escudero MD 10 mg at 01/06/20 0805 ??? magnesium hydroxide (MILK OF MAGNESIA) 80 mg/mL (33.3 mg/mL as elemental magnesium) oral suspension 30 mL 30 mL oral Daily PRN Mathew Mccullough MD 30 mL at 01/06/20 2233 ??? metroNIDAZOLE (FLAGYL) 500 mg/100 mL in sodium chloride (premix) 500 mg 500 mg intravenous Q8H SOL Emile Escudero MD 200 mL/hr at 01/07/20 0525 500 mg at 01/07/20 0525 ??? mineral oil (FLEET MINERAL OIL) enema 1 enema 1 enema rectal Daily PRN Mathew Mccullough MD ??? ondansetron ODT (ZOFRAN-ODT) disintegrating tablet 4 mg 4 mg oral Q6H PRN Emile Escudero MD Or ??? ondansetron (ZOFRAN) injection 4 mg 4 mg intravenous Q6H PRN Emile Escudero MD 4 mg at 01/06/20 1101 ??? oxyCODONE (ROXICODONE) tablet 5 mg 5 mg oral Q4H PRN Emile Escudero MD 5 mg at 01/05/20 0827 ??? sodium chloride 0.9% flush 0.5-20 mL 0.5-20 mL intra-catheter Q8H Mathew Mccullough MD 10 mL at 01/07/20 0526 ??? sodium chloride 0.9% flush 0.5-20 mL 0.5-20 mL intra-catheter PRN Mathew Mccullough MD ??? sodium phosphate - potassium phosphate (K-PHOS NEUTRAL) tablet 500 mg 500 mg oral TID with meals Mathew Mccullough MD ??? vancomycin 1,000 mg/200 mL in sodium chloride 0.9% (premix) 1,000 mg 1,000 mg intravenous Q24H Mathew Mccullough MD 1,000 mg at 01/06/20 1826 A/P: 1. Right diabetic foot osteomyelitis: on cipro, flagyl, vanc. Will go for MRI and TEO with arterialdoppler, podiatry consulted and ID 2. DM II: not well controlled, added insulin regimen, monitor 3. HTN: controlled on home meds 4. Schizophrenia: resumed home meds Summary and daily updates: 01/05: Cancelled MRI as the recent one is just 10 days ago. $th toes osteomyelitis is evident. TEO showed normal pressure, arteiral doppler is pending For Amputation by podiatry, WbC are still 15, no fever, cultures are negative so far, continue ABX 01/06: Rt 4th toe amputated yesterday, developed a high fever after surgery, switched cipro to cefepime, blood cultures repeated. Will discuss with ID Tissue culture is growing MRSA, contineu vanc Principal Problem: Acute osteomyelitis of toe of right foot (CMS/HCC) Active Problems: Schizophrenia (CMS/HCC) Diabetic neuropathy (CMS/HCC) Uncontrolled type 2 diabetes mellitus with hyperglycemia (CMS/HCC) Ulcer of toe of right foot, with fat layer exposed (CMS/HCC) Essential hypertension Mathew Mccullough MD 01/07/2020 7:20 AM * Anabel Palmer, [facility] - 01/07/2020 6:44 AM CDT Vancomycin order of 1000 mg IV every 24 hours is still active for indication of bone/joint infection. Patient's labs for today are: BUN: 15 Serum creatinine: 0.9 mg/dL 01/07/20 0332 Estimated creatinine clearance: 46.7 mL/min WBC: 16.3, increasing Patient's Scr trend: Select one: Appears stable Labs, notes, medications and microbiology results have been reviewed. Tissue culture growing gram positive cocci Next level is ordered for: 01/07 1600 Pharmacy will continue to monitor daily. [facility] * Anabel Palmer [facility] - 01/07/2020 6:20 AM CDT Electrolyte monitoring performed by pharmacy on labs from 01/06 (date & time), Na+=139 K+=4.3 Mg+=2.2 Phos=1.8 Phosphorus tablet , 2 tabs TID x 3 doses replacement ordered. Pharmacy will continue to follow daily. [facility] * Anabel Palmer [facility] - 01/06/2020 5:27 PM CDT Sixto Chakraborty has been consulted for vancomycin dosing for bone/joint infection. Increase vancomycin dose to 1000 mg every 24 hours for subtherapeutic level of 6.1 on 01/05. Next trough 01/08 1600. Patient's labs for today are: BUN: 17 Serum creatinine: 0.93 mg/dL 01/06/20 0356 Estimated creatinine clearance: 45.2 mL/min WBC: 15.7 Patient's Scr trend: Select one: Appears stable Labs, notes, medications and microbiology results have been reviewed. Pharmacy will continue to monitor daily. [facility] * Matehw Mccullough MD - 01/06/2020 6:34 AM CDT General Medicine Daily Progress SUBJECTIVE Chief complaint of Right diabetic foot gangrenous toes. Interval History: Right diabetic foot gangrenous toes. OBJECTIVE Vitals: 24hr Min/Max: Temp Min: 36.3 ??C (97.4 ??F) Max: 36.8 ??C (98.2 ??F) Pulse Min: 76 Max: 78 BP Min: 107/51 Max: 135/67 Resp Min: 16 Max: 20 SpO2 Min: 93 % Max: 100 % Most Recent : Vitals: 01/05/20 2324 BP: 117/53 Pulse: 77 Resp: 16 Temp: 36.8 ??C (98.2 ??F) SpO2: 95% I/O last 2 completed shifts: In: 2643 [P.O.:200; I.V.:8343] Out: - No intake/output data recorded. Physical Exam: Eyes: EOMI, SB, sclare non icteric Neck: supple, no nuchal ridigity, no gross carotid bruits appreciated Pharynx: No gross oral lesion, tongue midline, mucosa moist Lungs CTA Heart: [id number] Abd: +BS, Non Tender, Non distended, No gross hepatomegaly Lower Ext: No gross edema Neuro: No new gross deficits appreciated Musculoskeletal: no gross joint erythema, edema, tenderness Skin: inter-toes skin ulceration with discharge of the right foot Lab/Current Medication Review: Recent Results (from the past 24 hour(s)) POCT glucose Collection Time: 01/05/20 8:12 AM Result Value Ref Range Glucose, POC 177 (H) 71 - 98 mg/dL POCT glucose Collection Time: 01/05/20 11:42 AM Result Value Ref Range Glucose, POC 179 (H) 71 - 98 mg/dL POCT glucose Collection Time: 01/05/20 4:53 PM Result Value Ref Range Glucose, POC 176 (H) 71 - 98 mg/dL POCT glucose Collection Time: 01/05/20 9:43 PM Result Value Ref Range Glucose, POC 293 (H) 71 - 98 mg/dL POCT glucose Collection Time: 01/06/20 2:28 AM Result Value Ref Range Glucose, POC 214 (H) 71 - 98 mg/dL CBC with auto differential Collection Time: 01/06/20 3:56 AM Result Value Ref Range WBC 15.7 (H) 3.8 - 9.9 K/cumm Hgb 8.1 (L) 11.9 - 15.5 g/dL Hct 25.3 (L) 35.6 - 45.5 % Plt 326 150 - 400 K/cumm MPV 10.2 9.1 - 12.3 fL RBC 2.75 (L) 3.90 - 5.20 M/cumm MCV 92.0 81.3 - 96.4 fL MCH 29.5 27.1 - 33.3 pg MCHC 32.0 (L) 32.3 - 35.7 g/dL RDW CV 14.0 11.1 - 14.9 % RDW SD 47.1 35.7 - 48.1 fL NRBC abs 0.00 0.00 - 0.01 K/cumm Comprehensive metabolic panel Collection Time: 01/06/20 3:56 AM Result Value Ref Range Sodium 135 135 - 145 mmol/L Potassium, pl 4.4 3.3 - 4.9 mmol/L Chloride 102 97 - 110 mmol/L CO2 25 22 - 32 mmol/L Anion gap 8 2 - 15 mmol/L BUN 17 8 - 25 mg/dL Creatinine 0.93 0.60 - 1.10 mg/dL Glucose 213 (H) 70 - 199 mg/dL Calcium 8.7 8.5 - 10.3 mg/dL Bilirubin, total 0.3 0.1 - 1.2 mg/dL Protein, pl 6.6 6.5 - 8.5 g/dL Albumin 2.5 (L) 3.5 - 5.0 g/dL Alk phos 158 (H) 40 - 130 Units/L ALT 21 7 - 45 Units/L AST 33 10 - 45 Units/L Phosphorus Collection Time: 01/06/20 3:56 AM Result Value Ref Range Phosphorus, pl 2.3 2.3 - 4.5 mg/dL Magnesium Collection Time: 01/06/20 3:56 AM Result Value Ref Range Magnesium 2.0 1.4 - 2.5 mg/dL CRP (acute phase) Collection Time: 01/06/20 3:56 AM Result Value Ref Range C-RP 236.1 (H) <=10.0 mg/L Differential, auto Collection Time: 01/06/20 3:56 AM Result Value Ref Range Neutrophil abs 12.9 (H) 1.7 - 6.5 K/cumm Imm gran abs 0.1 0.0 - 0.1 K/cumm Lymphocyte abs 1.5 0.8 - 3.3 K/cumm Monocyte abs 1.1 (H) 0.2 - 0.8 K/cumm Eosinophil abs 0.0 0.0 - 0.5 K/cumm Basophil abs 0.0 0.0 - 0.1 K/cumm Neutrophil pct 82.4 % Imm gran pct 0.6 % Lymphocyte pct 9.4 % Monocyte pct 7.1 % Eosinophil pct 0.3 % Basophil pct 0.2 % eGFR Collection Time: 01/06/20 3:56 AM Result Value Ref Range GFR 63 mL/min/1.73 m2 Current Facility-Administered Medications Medication Dose Route Frequency Provider Last Rate Last Dose ??? acetaminophen (TYLENOL) tablet 650 mg 650 mg oral Q4H PRN Emile Escudero MD ??? amLODIPine (NORVASC) tablet 5 mg 5 mg oral Daily Emile Escudero MD 5 mg at 01/05/20 0828 ??? benzonatate (TESSALON) capsule 100 mg 100 mg oral Q8H PRN Emile Escudero MD 100 mg at 01/06/20 0524 ??? bisacodyl EC (DULCOLAX EC) tablet 10 mg 10 mg oral Daily PRN Mathew Mccullough MD ??? ciprofloxacin (CIPRO) 400 mg/200 mL in dextrose 5% (premix) 400 mg 400 mg intravenous Q12H SOL Emile Escudero MD 200 mL/hr at 01/05/202135 400 mg at 01/05/202135 ??? dextrose gel in packet 15 g 15 g oral Q15 Min PRN Emile Escudero MD Or ??? dextrose (D10W) 10% bolus 250 mL 250 mL intravenous Q15 Min PRN Emile Escudero MD ??? docusate sodium (COLACE) capsule 100 mg 100 mg oral BID PRN Emile Escudero MD ??? enoxaparin (LOVENOX) syringe 40 mg 40 mg subcutaneous Daily-2099 Emile Escudero MD 40 mg at 01/05/202135 ??? gabapentin (NEURONTIN) capsule 400 mg 400 mg oral TID Emile Escudero MD 400 mg at 01/05/202135 ??? glucagon injection 1 mg 1 mg intramuscular Q30 Min PRN Emile Escudero MD ??? hydrALAZINE (APRESOLINE) injection 10 mg 10 mg intravenous Q4H PRN Emile Escudero MD ??? HYDROcodone-acetaminophen (NORCO) 5-325 mg per tablet 1 tablet 1 tablet oral Q4H PRN Emile Escudero MD 1 tablet at 01/05/202005 ??? insulin glargine (LANTUS,BASAGLAR) pen injection 32 Units 32 Units subcutaneous Nightly Mathew Mccullough MD ??? insulin lispro (HumaLOG) pen injection 1-4 Units 1-4 Units subcutaneous Nightly Emile Escudero MD 4 Units at 01/05/202144 ??? insulin lispro (HumaLOG) pen injection 1-7 Units 1-7 Units subcutaneous TID with meals Emile Escudero MD 3 Units at 01/05/20 1712 ??? lisinopriL (PRINIVIL,ZESTRIL) tablet 10 mg 10 mg oral Daily Emile Escudero MD 10 mg at 01/05/20 0828 ??? magnesium hydroxide (MILK OF MAGNESIA) 80 mg/mL (33.3 mg/mL as elemental magnesium) oral suspension 30 mL 30 mL oral Daily PRN Mathew Mccullough MD ??? metroNIDAZOLE (FLAGYL) 500 mg/100 mL in sodium chloride (premix) 500 mg 500 mg intravenous Q8H SOL Emile Escudero MD 200 mL/hr at 01/06/20 0524 500 mg at 01/06/20 0524 ??? mineral oil (FLEET MINERAL OIL) enema 1 enema 1 enema rectal Daily PRN Mathew Mccullough MD ??? ondansetron ODT (ZOFRAN-ODT) disintegrating tablet 4 mg 4 mg oral Q6H PRN Emile Escudero MD Or ??? ondansetron (ZOFRAN) injection 4 mg 4 mg intravenous Q6H PRN Emile Escudero MD 4 mg at 01/05/20 1358 ??? oxyCODONE (ROXICODONE) tablet 5 mg 5 mg oral Q4H PRN Emile Escudero MD 5 mg at 01/05/20 0827 ??? potassium phosphates 12 mmol in sodium chloride 0.9% 250 mL IVPB 12 mmol intravenous Once Mathew Mccullough MD ??? sodium chloride 0.9% flush 0.5-20 mL 0.5-20 mL intra-catheter Q8H Mathew Mccullough MD 10 mL at 01/04/202055 ??? sodium chloride 0.9% flush 0.5-20 mL 0.5-20 mL intra-catheter PRN Mathew Mccullough MD ??? vancomycin 750 mg/150 mL in sodium chloride 0.9% (premix) 750 mg 750 mg intravenous Q24H Emile Escudero MD 750 mg at 01/05/202001 A/P: 1. Right diabetic foot osteomyelitis: on cipro, flagyl, vanc. Will go for MRI and TEO with arterialdoppler, podiatry consulted and ID 2. DM II: not well controlled, added insulin regimen, monitor 3. HTN: controlled on home meds 4. Schizophrenia: resumed home meds Summary and daily updates: 01/05: Cancelled MRI as the recent one is just 10 days ago. $th toes osteomyelitis is evident. TEO showed normal pressure, arteiral doppler is pending For Amputation by podiatry, WbC are still 15, no fever, cultures are negative so far, continue ABX Principal Problem: Acute osteomyelitis of toe of right foot (CMS/HCC) Active Problems: Schizophrenia (CMS/HCC) Diabetic neuropathy (CMS/HCC) Uncontrolled type 2 diabetes mellitus with hyperglycemia (CMS/HCC) Ulcer of toe of right foot, with fat layer exposed (CMS/HCC) Essential hypertension Mathew Mccullough MD 01/06/2020 6:34 AM * Yordy Escalona, [facility] - 01/06/2020 6:11 AM CDT Electrolyte monitoring performed by pharmacy on labs from 01/06/2020 03:56, Na+=135 K+=4.4 Mg+=2.0 Phos=2.3 Potassium phosphate 12 mmol ivpb run X 1 dose per pharmacy electrolyte replacement protocol for phosphorous +=2.3 on 01/06/2020 (Potassium = 4.4) replacement ordered. Pharmacy will continue to follow daily. Thank you, Yordy Escalona [facility] department * Daisy Green MSW - 01/05/2020 2:54 PM CDT 01/05/20 1390 Information Information Obtained From Patient Referral Data Referral Source Physician Referral Reason Discharge Planning Prior to Admission Primary Caregiver Self Support System Children Support system contact info (name, phone, availablity) [phone] Home Care Services No Durable Medical Equipment Cane (3 prong) Living Arrangements Children Type of Residence Private residence Financial Resource Income SSD/SSI Payor Source Medicare;Medicaid Potential Discharge Needs Anticipated discharge level of care Private residence Pt/Family agrees with Anticipated Level of Care Yes Dialysis No Behavioral Health Services No SS consulted for dc planning. Pt lives with her daughter, uses a cane, and independent with ADL's. Per chart review has hx of Schizophrenia but denies any mental health services. She goes to the wound care center twice a week and daughter provides transportation. Denies any need for extra help and plans to return home at dc. If this is the last note consider it the discharge summary * Mathew Mccullough MD - 01/05/2020 10:39 AM CDT General Medicine Daily Progress SUBJECTIVE Chief complaint of Right diabetic foot gangrenous toes. Interval History: Right diabetic foot gangrenous toes. OBJECTIVE Vitals: 24hr Min/Max: Temp Min: 36.6 ??C (97.9 ??F) Max: 37.2 ??C (98.9 ??F) Pulse Min: 76 Max: 104 BP Min: 107/51 Max: 182/91 Resp Min: 16 Max: 18 SpO2 Min: 93 % Max: 100 % Most Recent : Vitals: 01/05/20 0817 BP: 107/51 Pulse: 76 Resp: 18 Temp: 36.6 ??C (97.9 ??F) SpO2: 93% I/O last 2 completed shifts: In: 1242 [I.V.:1242] Out: - No intake/output data recorded. Physical Exam: Eyes: EOMI, SB, sclare non icteric Neck: supple, no nuchal ridigity, no gross carotid bruits appreciated Pharynx: No gross oral lesion, tongue midline, mucosa moist Lungs CTA Heart: [id number] Abd: +BS, Non Tender, Non distended, No gross hepatomegaly Lower Ext: No gross edema Neuro: No new gross deficits appreciated Musculoskeletal: no gross joint erythema, edema, tenderness Skin: inter-toes skin ulceration with discharge of the right foot Lab/Current Medication Review: Recent Results (from the past 24 hour(s)) Erythrocyte sedimentation rate Collection Time: 01/04/20 5:29 PM Result Value Ref Range Erythrocyte sedimentation rate 112 (H) 1 - 30 mm/hr CBC with auto differential Collection Time: 01/04/20 5:29 PM Result Value Ref Range WBC 18.3 (H) 3.8 - 9.9 K/cumm Hgb 10.2 (L) 11.9 - 15.5 g/dL Hct 32.2 (L) 35.6 - 45.5 % Plt 470 (H) 150 - 400 K/cumm MPV 10.2 9.1 - 12.3 fL RBC 3.47 (L) 3.90 - 5.20 M/cumm MCV 92.8 81.3 - 96.4 fL MCH 29.4 27.1 - 33.3 pg MCHC 31.7 (L) 32.3 - 35.7 g/dL RDW CV 14.3 11.1 - 14.9 % RDW SD 48.1 35.7 - 48.1 fL NRBC abs 0.00 0.00 - 0.01 K/cumm Comprehensive metabolic panel Collection Time: 01/04/20 5:29 PM Result Value Ref Range Sodium 136 135 - 145 mmol/L Potassium, pl 3.6 3.3 - 4.9 mmol/L Chloride 98 97 - 110 mmol/L CO2 26 22 - 32 mmol/L Anion gap 12 2 - 15 mmol/L BUN 13 8 - 25 mg/dL Creatinine 0.75 0.60 - 1.10 mg/dL Glucose 189 70 - 199 mg/dL Calcium 9.8 8.5 - 10.3 mg/dL Bilirubin, total 0.6 0.1 - 1.2 mg/dL Protein, pl 8.3 6.5 - 8.5 g/dL Albumin 3.5 3.5 - 5.0 g/dL Alk phos 156 (H) 40 - 130 Units/L ALT 24 7 - 45 Units/L AST 23 10 - 45 Units/L Differential, auto Collection Time: 01/04/20 5:29 PM Result Value Ref Range Neutrophil abs 15.2 (H) 1.7 - 6.5 K/cumm Imm gran abs 0.2 (H) 0.0 - 0.1 K/cumm Lymphocyte abs 1.7 0.8 - 3.3 K/cumm Monocyte abs 1.2 (H) 0.2 - 0.8 K/cumm Eosinophil abs 0.1 0.0 - 0.5 K/cumm Basophil abs 0.0 0.0 - 0.1 K/cumm Neutrophil pct 82.9 % Imm gran pct 0.9 % Lymphocyte pct 9.2 % Monocyte pct 6.5 % Eosinophil pct 0.3 % Basophil pct 0.2 % eGFR Collection Time: 01/04/20 5:29 PM Result Value Ref Range GFR 81 mL/min/1.73 m2 CRP (acute phase) Collection Time: 01/04/20 5:29 PM Result Value Ref Range C-RP 340.9 (H) <=10.0 mg/L POCT glucose Collection Time: 01/04/20 8:56 PM Result Value Ref Range Glucose, POC 363 (H) 71 - 98 mg/dL COVID-19 Coronavirus RNA Nasopharyngeal Collection Time: 01/04/20 9:01 PM Result Value Ref Range COVID-19 Coronavirus RNA Negative Negative CBC with auto differential Collection Time: 01/05/20 12:00 AM Result Value Ref Range WBC 15.1 (H) 3.8 - 9.9 K/cumm Hgb 8.0 (L) 11.9 - 15.5 g/dL Hct 24.7 (L) 35.6 - 45.5 % Plt 388 150 - 400 K/cumm MPV 9.6 9.1 - 12.3 fL RBC 2.72 (L) 3.90 - 5.20 M/cumm MCV 90.8 81.3 - 96.4 fL MCH 29.4 27.1 - 33.3 pg MCHC 32.4 32.3 - 35.7 g/dL RDW CV 13.8 11.1 - 14.9 % RDW SD 45.2 35.7 - 48.1 fL NRBC abs 0.00 0.00 - 0.01 K/cumm Comprehensive metabolic panel Collection Time: 01/05/20 12:00 AM Result Value Ref Range Sodium 132 (L) 135 - 145 mmol/L Potassium, pl 3.9 3.3 - 4.9 mmol/L Chloride 99 97 - 110 mmol/L CO2 25 22 - 32 mmol/L Anion gap 8 2 - 15 mmol/L BUN 17 8 - 25 mg/dL Creatinine 0.98 0.60 - 1.10 mg/dL Glucose 278 (H) 70 - 199 mg/dL Calcium 8.4 (L) 8.5 - 10.3 mg/dL Bilirubin, total 0.3 0.1 - 1.2 mg/dL Protein, pl 6.3 (L) 6.5 - 8.5 g/dL Albumin 2.6 (L) 3.5 - 5.0 g/dL Alk phos 116 40 - 130 Units/L ALT 18 7 - 45 Units/L AST 20 10 - 45 Units/L Magnesium Collection Time: 01/05/20 12:00 AM Result Value Ref Range Magnesium 1.9 1.4 - 2.5 mg/dL Phosphorus Collection Time: 01/05/20 12:00 AM Result Value Ref Range Phosphorus, pl 2.5 2.3 - 4.5 mg/dL Protime-INR Collection Time: 01/05/20 12:00 AM Result Value Ref Range PT 16.5 (H) 9.5 - 13.0 sec INR 1.4 (H) 0.9 - 1.2 aPTT Collection Time: 01/05/20 12:00 AM Result Value Ref Range aPTT 31 25 - 37 sec Differential, auto Collection Time: 01/05/20 12:00 AM Result Value Ref Range Neutrophil abs 12.2 (H) 1.7 - 6.5 K/cumm Imm gran abs 0.1 0.0 - 0.1 K/cumm Lymphocyte abs 1.6 0.8 - 3.3 K/cumm Monocyte abs 1.1 (H) 0.2 - 0.8 K/cumm Eosinophil abs 0.0 0.0 - 0.5 K/cumm Basophil abs 0.0 0.0 - 0.1 K/cumm Neutrophil pct 81.0 % Imm gran pct 0.5 % Lymphocyte pct 10.8 % Monocyte pct 7.3 % Eosinophil pct 0.3 % Basophil pct 0.1 % eGFR Collection Time: 01/05/20 12:00 AM Result Value Ref Range GFR 59 mL/min/1.73 m2 POCT glucose Collection Time: 01/05/20 2:15 AM Result Value Ref Range Glucose, POC 236 (H) 71 - 98 mg/dL POCT glucose Collection Time: 01/05/20 8:12 AM Result Value Ref Range Glucose, POC 177 (H) 71 - 98 mg/dL Current Facility-Administered Medications Medication Dose Route Frequency Provider Last Rate Last Dose ??? acetaminophen (TYLENOL) tablet 650 mg 650 mg oral Q4H PRN Emile Escudero MD ??? amLODIPine (NORVASC) tablet 5 mg 5 mg oral Daily Emile Escudero MD 5 mg at 01/05/20 0828 ??? bisacodyl EC (DULCOLAX EC) tablet 10 mg 10 mg oral Daily PRN Mathew Mccullough MD ??? ciprofloxacin (CIPRO) 400 mg/200 mL in dextrose 5% (premix) 400 mg 400 mg intravenous Q12H [facility] Emile Escudero MD 200 mL/hr at 01/05/20 0833 400 mg at 01/05/20 0833 ??? dextrose gel in packet 15 g 15 g oral Q15 Min PRN Emile Escudero MD Or ??? dextrose (D10W) 10% bolus 250 mL 250 mL intravenous Q15 Min PRN Emile Escudero MD ??? docusate sodium (COLACE) capsule 100 mg 100 mg oral BID PRN Emile Escudero MD ??? enoxaparin (LOVENOX) syringe 40 mg 40 mg subcutaneous Daily-2100 Emile Escudero MD 40 mg at 07/15/20 2054 ??? gabapentin (NEURONTIN) capsule 400 mg 400 mg oral TID Emile Escudero MD 400 mg at 01/05/20 0828 ??? glucagon injection 1 mg 1 mg intramuscular Q30 Min PRN Emile Escudero MD ??? hydrALAZINE (APRESOLINE) injection 10 mg 10 mg intravenous Q4H PRN Emile Escudero MD ??? HYDROcodone-acetaminophen (NORCO) 5-325 mg per tablet 1 tablet 1 tablet oral Q4H PRN Emile Escudero MD 1 tablet at 01/05/20 0549 ??? insulin glargine (LANTUS,BASAGLAR) pen injection 25 Units 25 Units subcutaneous Nightly MD Marylou 25 Units at 01/04/202206 ??? insulin lispro (HumaLOG) pen injection 1-4 Units 1-4 Units subcutaneous Nightly Emile Escudero MD 4 Units at 01/04/202205 ??? insulin lispro (HumaLOG) pen injection 1-7 Units 1-7 Units subcutaneous TID with meals Emile Escudero MD 3 Units at 01/05/20 0832 ??? Lactated Ringer's (LR) infusion 125 mL/hr intravenous Continuous Emile Escudero MD 125 mL/hr at 01/05/20 0833 125 mL/hr at 01/05/20 0833 ??? lisinopriL (PRINIVIL,ZESTRIL) tablet 10 mg 10 mg oral Daily Emile Escudero MD 10 mg at 01/05/20 0828 ??? magnesium hydroxide (MILK OF MAGNESIA) 80 mg/mL (33.3 mg/mL as elemental magnesium) oral suspension 30 mL 30 mL oral Daily PRN Mathew Mccullough MD ??? metroNIDAZOLE (FLAGYL) 500 mg/100 mL in sodium chloride (premix) 500 mg 500 mg intravenous Q8H SOL Emile Escudero MD 200 mL/hr at 01/05/2049 500 mg at 01/05/20 0549 ??? mineral oil (FLEET MINERAL OIL) enema 1 enema 1 enema rectal Daily PRN Mathew Mccullough MD ??? ondansetron ODT (ZOFRAN-ODT) disintegrating tablet 4 mg 4 mg oral Q6H PRN Emile Escudero MD Or ??? ondansetron (ZOFRAN) injection 4 mg 4 mg intravenous Q6H PRN Emile Escudero MD 4 mg at 01/05/20826 ??? oxyCODONE (ROXICODONE) tablet 5 mg 5 mg oral Q4H PRN Emile Escudero MD 5 mg at 01/05/20826 ??? potassium phosphates 11 mmol in sodium chloride 0.9% 250 mL IVPB 11 mmol intravenous Once Mathew Mccullough MD 42.3 mL/hr at 01/05/20 1007 11 mmol at 01/05/20 1007 ??? sodium chloride 0.9% flush 0.5-20 mL 0.5-20 mL intra-catheter Q8H Mathew Mccullough MD 10 mL at 01/04/202055 ??? sodium chloride 0.9% flush 0.5-20 mL 0.5-20 mL intra-catheter PRN Mathew Mccullough MD ??? vancomycin 750 mg/150 mL in sodium chloride 0.9% (premix) 750 mg 750 mg intravenous Q24H Emile Escudero MD 750 mg at 01/04/202050 A/P: 1. Right diabetic foot osteomyelitis: on cipro, flagyl, vanc. Will go for MRI and TEO with arterialdoppler, podiatry consulted and ID 2. DM II: not well controlled, added insulin regimen, monitor 3. HTN: controlled on home meds 4. Schizophrenia: resumed home meds Principal Problem: Acute osteomyelitis of toe of right foot (CMS/HCC) Active Problems: Schizophrenia (CMS/HCC) Diabetic neuropathy (CMS/HCC) Uncontrolled type 2 diabetes mellitus with hyperglycemia (CMS/HCC) Ulcer of toe of right foot, with fat layer exposed (CMS/HCC) Essential hypertension Mathew Mccullough MD 01/05/2020 10:39 AM * Indira Charles, LUZ MARIA - 01/05/2020 8:52 AM CDT . Nutrition Assessment Reason for Assessment: Screened at Nutrition Risk and Initial Nutrition Assessment Encounter Date: 01/05/20 8:54 AM Nutrition Assessment and Plan: Patient is a 69 y.o. female. Admit Dx: GANGRENE RT FOOT. Admitted on 01/04/2020, current LOS is 1 days. Nutrition Screen What diet do you follow at home?: regular Have You Recently Lost Weight Without Trying?: No Poor Oral Intake for Four or More Days Prior to Admission: No Current diet order: NPO Diet Pt intake is inadequate. PO intakes: NPO 01/04 Wt Readings from Last 10 Encounters: 01/04/20 57.1 kg (125 lb 12.8 oz) 12/22/19 56.2 kg (124 lb) 12/09/19 56.2 kg (124 lb) 11/17/19 56.7 kg (125 lb) 11/03/19 56.7 kg (125 lb) 10/21/19 56.7 kg (125 lb) 09/06/19 59 kg (130 lb) 09/01/19 56.7 kg (125 lb) 08/30/19 56.7 kg (125 lb) 03/17/18 63.5 kg (140 lb) Nutrition Diagnosis 1: Increased nutrient needs (protein) Related to: Wounds Evidenced by: Physicalfinding Interventions: [place] diet preferences within the limits of nutrition care order, Medical food supplement Monitoring and Evaluation: Discharge plans, Diet advancement, Labs, PO intake, Supplement tolerance ?? Goals: Adequate nutrition to meet estimated needs by next assessment, Tolerance of medical food supplement by next assessment, Advance to oral intake as medically able Recommendations: Mat at breakfast and dinner when diet increases. Consistent carbohydrate diet when diet increases. Nutrition Diagnosis 2: Altered nutrition-related laboratory valuesRelated to: Chronic illness/injuryEvidenced by: Physical finding Interventions: Education, nutrition Monitoring and Evaluation: Blood glucoses, Diet advancement, Discharge plans, Labs, PO intake Goals: Oral intake to meet 75% estimated nutritional needs by next assessment Recommendations: Education on consistent carb diet when diet increases Estimated needs: ?? Total Kcal/kg Estimated Needs : 1711.89 based on Kcal/k. Type of Weight Used for Estimated Kcals: Current ?? MSJ Total Energy Needs: 1704.62 kcal using Stress Factor: 1.3 Activity Factor: 1.25 ?? Total Protein Estimated Needs (gm): 57.06 Protein Needs Based on g/k.0 Type of Weight Used for Estimated Protein : Current. ?? Total Fluid Estimated Needs: 1426.58 Fluid Needs Based on : 25 ml/kg. Objective Anthropometrics Weight: 57.1 kg (125 lb 12.8 oz) Admission Weight : 57.1 kg Weight Change: 0.00 kg (0.00 lbs) IBW/kg (Calculated) : 49.9 kg Height: 157.5 cm (5' 2.01 ) Weight in (lb) to have BMI = 25: 136.4 BMI (Calculated): 23 3 Day I/O Summary 01/020 - 01/04 0659 In: 1242 [I.V.:1242] Out: - Temp: 36.6 ??C (97.9 ??F) Past Medical History: Diagnosis Date ??? Arthritis ??? Depression ??? Diabetic neuropathy (CMS/HCC) ??? Hypertension ??? Schizophrenia (CMS/HCC) Medications and Lab Review: Scheduled Meds: amLODIPine, 5 mg, oral, Daily ciprofloxacin, 400 mg, intravenous, Q12H SOL enoxaparin, 40 mg, subcutaneous, Daily-2100 gabapentin, 400 mg, oral, TID insulin glargine, 25 Units, subcutaneous, Nightly insulin lispro, 1-4 Units, subcutaneous, Nightly insulin lispro, 1-7 Units, subcutaneous, TID with meals lisinopriL, 10 mg, oral, Daily metroNIDAZOLE, 500 mg, intravenous, Q8H SOL potassium phosphate, 11 mmol, intravenous, Once sodium chloride 0.9%, 0.5-20 mL, intra-catheter, Q8H vancomycin, 750 mg, intravenous, Q24H Continuous Infusions: Lactated Ringer's, 125 mL/hr, Last Rate: 125 mL/hr (01/05/20 0833) Sodium Date Value Ref Range Status 01/05/2020 132 (L) 135 - 145 mmol/L Final Potassium, pl Date Value Ref Range Status 01/05/2020 3.9 3.3 - 4.9 mmol/L Final BUN Date Value Ref Range Status 01/05/2020 17 8 - 25 mg/dL Final Creatinine Date Value Ref Range Status 01/05/2020 0.98 0.60 - 1.10 mg/dL Final Phosphorus, pl Date Value Ref Range Status 01/05/2020 2.5 2.3 - 4.5 mg/dL Final Albumin Date Value Ref Range Status 01/05/2020 2.6 (L) 3.5 - 5.0 g/dL Final Magnesium Date Value Ref Range Status 01/05/2020 1.9 1.4 - 2.5 mg/dL Final Calcium Date Value Ref Range Status 01/05/2020 8.4 (L) 8.5 - 10.3 mg/dL Final Lab Results Component Value Date HGBA1C 11.6 (H) 12/14/2019 POC Glucose: 177(01/04) Nursing Assessment: Timoteo Scale Score: 20 Skin Integrity: Other (Comment)(small wound and brown, red and yellow between toes) Nutrition Follow-Up : 01/10/[address],LDN * Yordy Escalona [facility] - 01/05/2020 6:12 AM CDT Electrolyte monitoring performed by pharmacy on labs from 01/05/2020 00;00, Na+=132 K+=3.9 Mg+=1.9 Phos=2.5 Potassium phosphate 11 mmol ivpb run X 1 dose per pharmacy electrolyte replacement protocol for phosphorous +=2.5 on 01/05/2020 (Potassium = 3.9) replacement ordered. Pharmacy will continue to follow daily. Thank you, Yordy Escalona [facility] Pharmacy department * Alvarado Palomo [facility] - 01/04/2020 8:02 PM CDT An order to initiate electrolyte repletion by pharmacy has been received from Dr. Escudero. IV or PO repletion will be ordered by the pharmacist when levels fall below the desired range basedon NPO status as follows: If potassium level is greater than 2.8 and less than 3.3, give 40mEq potassium chloride IVPB, or oral (per NG tube, when applicable). If potassium level is 2.8 or less, or greater than 6, call physician for orders If magnesium level is 1.0 - 1.5 and patient can take oral medications, administer magnesium oxide 400 mg oral TID x 3 doses. If magnesium level is <1.0, or 1.0 -1.5 and patient is NPO, administer 2 grams magnesium sulfateIVPB over 2 hours. Repletion of Phosphorus Patient can take oral/per tube meds sodium/potassium phosphate Tab contains 1.1 mEq K, 13 mEq Na, 8 mmol phos Powder Packet contains 7.1 mEq K, 6.9 mEq Na, 8 mmol phos Patient NPO and/or Phosphorus level is <1.1 or Phosphorus level is 2.5 or less in TPN patient Decrease dose by 50% for CrCl < 50 Potassium level < 3.3 Potassium level 3.3 - 3.4 Potassium level 3.5 or higher Potassium level < 4.5 Potassium level 4.5 or higher Phosphorus 1.9 - 2.5 1 packet TID x 3 doses, KCl 20 mEq x 1 dose 1 packet TID x 3 doses 1 tab TID x 3 doses Potassium Phosphate 0.4 mmol/kg IVPB over 6 hours Sodium Phosphate 0.4 mmol/kg IVPB over 6 hours Phosphorus 1.1 - 1.8 2 packets TID x 3 doses, KCl 20 mEq x 1 dose 2 packets TID x 3 doses 2 tabs TID x 3 doses Monitoring Guidelines: Electrolyte levels will be ordered by providers as needed, except TPN patients who will be monitored as follows: TPN Patients: Renal panel daily x3 days, then every other day. Thank you, Alvarado Palomo RPh [facility] Pharmacy department * Alvarado Palomo RPh - 01/04/2020 6:41 PM CDT Vancomycin 750mg IV q 24 hrs initiated per protocol for weight=57 kg, CrCl=52.5 ml/min, vanco trough 01/05 at 1700. Pharmacy will monitor and adjust doses documented in this encounter H&P Notes * Anat Pelayo DPM - 01/06/2020 12:19 PM CDT I have reviewed the H&P, examined the patient, and endorse the findings as written. Plan of Care : Based on the above findings, I consider Sixto Chakraborty to be an acceptable risk for : Procedure(s): AMPUTATION 4th toe right foot with bone biopsy BIOPSY - BONE Source Note - Anat Pelayo DPM - 01/05/2020 12:24 PM CDT Podiatry Consult Reason for Consult: gangrene right foot Subjective Patient is a 69 y.o. female with chief complaint of nonhealing ulcerations of the right foot. HPI: Pt has been seen in the wound care center for care of nonhealing ulcerations in the right foot. She had an MRI in early December that demonstrated bone infection in the 4th digit and possible osteomyelitis in the first and 2nd digits. She is diabetic and has poorly controlled blood sugars. Past Medical History: Diagnosis Date ??? Arthritis ??? Depression ??? Diabetic neuropathy (CMS/HCC) ??? Hypertension ??? Schizophrenia (CMS/HCC) Past Surgical History: Procedure Laterality Date ??? SECTION HOME MEDICATIONS : insulin glargine (LANTUS,BASAGLAR) 100 unit/mL (3 mL) insulin pen ciprofloxacin (CIPRO) 500 mg tablet gabapentin (NEURONTIN) 400 mg capsule insulin syringe-needle U-100 (BD Insulin Syringe Ultra-Fine) 1 mL 31 gauge x 5/16 syringe lisinopriL (PRINIVIL,ZESTRIL) 10 mg tablet pen needle, diabetic 32 gauge x 3/16 needle VALERIAN ROOT ORAL Victoza 2-Vivek 0.6 mg/0.1 mL (18 mg/3 mL) injection No Known Allergies Social History Tobacco Use ??? Smoking status: Never Smoker ??? Smokeless tobacco: Never Used Substance Use Topics ??? Alcohol use: Not Currently Family History Problem Relation Age of Onset ??? Stomach cancer Father Review of Systems: Constitutional: negative for chills, fevers and night sweats ENT: denies ringing in ears, no productive cough or runny nose Cardiovascular: No current chest pain or SOB GI: no abdominal pain, constipation, loose stools, nausea, or vomiting Extremities: Pain in right foot toes Psych: No suicidal or homicidal ideations Vitals: 24hr Min/Max: Temp Min: 36.6 ??C (97.9 ??F) Max: 37.2 ??C (98.9 ??F) Pulse Min: 76 Max: 104 BP Min: 107/51 Max: 182/91 Resp Min: 16 Max: 18 SpO2 Min: 93 % Max: 100 % Most Recent : Vitals: 01/05/20 0817 BP: 107/51 Pulse: 76 Resp: 18 Temp: 36.6 ??C (97.9 ??F) SpO2: 93% I/O last 2 completed shifts: In: 1242 [I.V.:1242] Out: - No intake/output data recorded. Objective Physical Exam: General appearance: Vascular: Pedal pulses diminished. Hair growth absent. Mild erythema and edema. Neuro:Epicritic sensation diminished. Musculoskeletal: 4/5muscle strength for all muscles crossing the ankle joint. No pain with compression of calf musculature. Derm: Wounds interdigitally on right foot with exposed bone on right 4th digit. No exposed bone on right first or 2nd digit currently. No purulence or malodor. Lab/Radiology/Diagnostic Review: Laboratory review: Chemistry CMP: Lab Results Component Value Date ALBUMIN 2.6 (L) 01/05/2020 BUNSER 17 01/05/2020 CALCIUM 8.4 (L) 01/05/2020 CO2 25 01/05/2020 CHLORIDE 99 01/05/2020 CREATININE 0.98 01/05/2020 GLUCOSE 179 (H) 01/05/2020 GLUCOSE 278 (H) 01/05/2020 POTASSIUM 3.9 01/05/2020 SODIUM 132 (L) 01/05/2020 BILITOT 0.3 01/05/2020 PROT 6.3 (L) 01/05/2020 ALT 18 01/05/2020 AST 20 01/05/2020 ALKPHOS 116 01/05/2020 , CBC: Lab Results Component Value Date WBC 15.1 (H) 01/05/2020 RBC 2.72 (L) 01/05/2020 HGB 8.0 (L) 01/05/2020 HCT 24.7 (L) 01/05/2020 MCV 90.8 01/05/2020 MCH 29.4 01/05/2020 MCHC 32.4 01/05/2020 RDWCV 13.8 01/05/2020 RDWSD 45.2 01/05/2020 MPV 9.6 01/05/2020 NRBCABS 0.00 01/05/2020 and POC Glucose: Lab Results Component Value Date GLUCOSE 179 (H) 01/05/2020 GLUCOSE 278 (H) 01/05/2020 MRI right foot from 12/22/19 1. Abnormal T1 marrow signal within the 4th proximal and middle phalanx with associated edema. Findings are compatible with osteomyelitis. Given appearance of central nonenhancement within the 4th proximal phalanx, this may be related to an acute on chronic process. Recommend correlation with physical examination and clinical history. 2. Bone marrow edema is also noted about the 1st distal and 2nd proximal through distal phalanges without T1 signal replacement. Findings are likely related to reactive osteitis though early osteomyelitis is not excluded in the appropriate clinical setting and ulceration. 3. 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 ABIs IMPRESSION: 1. Normal right ankle brachial index. 2. Normal left ankle brachial index. Assessment /Plan Principal Problem: Acute osteomyelitis of toe of right foot (CMS/HCC) Active Problems: Schizophrenia ([facility]/HCC) Diabetic neuropathy (CMS/HCC) Uncontrolled type 2 diabetes mellitus with hyperglycemia (CMS/HCC) Ulcer of toe of right foot, with fat layer exposed (CMS/HCC) Essential hypertension Plan: I examined patient and reviewed labs. I reviewed previous MRI. I reviewed ABIs. I recommended [id number] digit amputation with wound debridement and possible bone biopsy right foot. We will work on scheduling this for tomorrow. Pre op orders placed. Anat Pelayo DPM 01/05/2020 * Emile Escudero MD - 01/04/2020 7:32 PM CDT [facility] Adult Hospitalist Service History and Physical Patient Name: Sixto Chakraborty Patient : 1950 Age/Sex: 69 y.o. female Room/Bed: [place] [address]/[place] [address] Admission Date/Time: 01/04/2020 5:43 PM Date: 01/04/2020 Time: 7:32 PM Primary Care Physician: Cherelle Corcoran MD PCP Office Location: [address] [place] [address] PCP SUBJECTIVE: Patient is a 69 y.o. female with a PMHx of diabetes, diabetic neuropathy, diabetic foot ulcer, osteomyelitis, essential hypertension, schizophrenia was sent from wound care clinic for directed missedfor further evaluation concerning for toe gangrene HPI Patient is a direct admit from wound care clinic for further evaluation for diabetic foot ulcer andconcern for toe gangrene. Daughter is at bedside and states that had been dealing with diabetic foot ulcer since July. Initially had ulceration over the great toe which now spread to the 2nd and 3rd and 4th toes. She was seen in the wound care clinic and was sent to the hospital for admission for the concerns of possible toe gangrene. Patient completed MRI December 25 which showed osteomyelitis of the 4th proximal and middle phalanxes aswell as possible osteomyelitis of 1st and 2nd toes the right foot At the time of presentation to the hospital patient noted to have low-grade fever. Also noted to behypertensive. Currently blood pressure is improved. Denies any other complaints. Review of Systems: Constitutional Denies: weight loss, weight gain, complains of fever, chills, night sweats, fatigue Eyes Denies: change in vision, double vision, eye pain, eye discharge, icterus ENT Denies: change in hearing, ear pain, ear discharge, nose bleed, nasal congestion, sore throat Respiratory Denies: SOB, wheezing, cough, sputum, hemoptysis CV Denies: chest pain, palpitations, syncope, edema, dyspnea GI Denies: abdominal pain, decreased appetite, nausea, vomiting, change in bowel habitus, diarrhea, constipation, melena, BRBPR Denies: dysuria, frequency, hematuria, nocturia, urgency Metabolic Denies: cold intolerance, heat intolerance, polyphagia, polydipsia Neurologic Denies: headache, dizziness, seizure, change in mental status, focal weakness, focal numbness Musculoskeletal Complains of right foot diabetic foot ulcer and swelling Hematologic Denies: bleeding, bruising, hematoma, lymphadenopathy, icterus Past Medical History: Past Medical History: Diagnosis Date ??? Arthritis ??? Depression ??? Diabetic neuropathy (CMS/HCC) ??? Hypertension ??? Schizophrenia (CMS/HCC) Past Surgical History: Past Surgical History: Procedure Laterality Date ??? SECTION Family History: Family History Problem Relation Age of Onset ??? Stomach cancer Father Social History: Social History Tobacco Use ??? Smoking status: Never Smoker ??? Smokeless tobacco: Never Used Substance Use Topics ??? Alcohol use: Not Currently Allergies: No Known Allergies Home Medications: Medications Prior to Admission Medication Sig Dispense Refill Last Dose ??? insulin glargine (LANTUS,BASAGLAR) 100 unit/mL (3 mL) insulin pen Inject 30 Units under the skin nightly ??? ciprofloxacin (CIPRO) 500 mg tablet Take 1 tablet (500 mg total) by mouth 2 (two) times a day for 14 days 28 tablet 0 01/04/2020 at Unknown time ??? gabapentin (NEURONTIN) 400 mg capsule Take 1 capsule (400 mg total) by mouth 3 (three) times a day 270 capsule 1 01/04/2020 at Unknown time ??? insulin syringe-needle U-100 (BD Insulin Syringe Ultra-Fine) 1 mL 31 gauge x 5/16 syringe 3 times a day Taking ??? lisinopriL (PRINIVIL,ZESTRIL) 10 mg tablet Take 1 tablet (10 mg total) by mouth daily 30 tablet5 01/04/2020 at Unknown time ??? pen needle, diabetic 32 gauge x 3/16 needle Once a day Taking ??? VALERIAN ROOT ORAL Take 530 mg by mouth daily. Indications: relaxation Taking ??? Victoza 2-Vivek 0.6 mg/0.1 mL (18 mg/3 mL) injection Inject 1.2 mg under the skin daily 6 mL 1 01/04/2020 at Unknown time Objective: Vitals: Patient Vitals for the past 24 hrs: Patient Vitals for the past 24 hrs: BP Temp Temp src Pulse Resp SpO2 Height Weight 01/05/20 0002 114/55 36.8 ??C (98.2 ??F) Temporal 83 16 97 % -- -- 01/04/20 2310 -- -- -- -- -- -- 157.5 cm (5' 2.01 ) 57.1 kg (125 lb 12.8 oz) 01/04/20 2045 132/61 -- -- 84 -- -- -- -- 01/04/20 1816 (!) 182/91 37.2 ??C (98.9 ??F) Temporal 104 -- 100 % 157.5 cm (5' 2 ) 57.1 kg (125 lb12.8 oz) Physical Exam: General: Awake, alert, oriented x3, in no acute distress Eyes: EOMI, SB, sclare non icteric Neck: supple, trachea midline, thyroid not enlarged, no gross carotid bruits appreciated Pharynx: No gross oral lesion, tongue midline, mucosa moist Lungs CTA Heart: [id number] Abd: +BS, Non Tender, Non distended, No gross hepatomegaly Lower Ext: No gross edema Neuro: Cranial nerves II-XII grossly intact. Moves all extremities equally, no gross sensory deficits Musculoskeletal: Right foot dressing was changed. Per media review Genitourinary: No suprapubic or CVA tenderness Skin: No skin rashes, warm and dry to palpation Laboratory Results: Recent Results (from the past 24 hour(s)) Erythrocyte sedimentation rate Collection Time: 01/04/20 5:29 PM Result Value Ref Range Erythrocyte sedimentation rate 112 (H) 1 - 30 mm/hr CBC with auto differential Collection Time: 01/04/20 5:29 PM Result Value Ref Range WBC 18.3 (H) 3.8 - 9.9 K/cumm Hgb 10.2 (L) 11.9 - 15.5 g/dL Hct 32.2 (L) 35.6 - 45.5 % Plt 470 (H) 150 - 400 K/cumm MPV 10.2 9.1 - 12.3 fL RBC 3.47 (L) 3.90 - 5.20 M/cumm MCV 92.8 81.3 - 96.4 fL MCH 29.4 27.1 - 33.3 pg MCHC 31.7 (L) 32.3 - 35.7 g/dL RDW CV 14.3 11.1 - 14.9 % RDW SD 48.1 35.7 - 48.1 fL NRBC abs 0.00 0.00 - 0.01 K/cumm Comprehensive metabolic panel Collection Time: 01/04/20 5:29 PM Result Value Ref Range Sodium 136 135 - 145 mmol/L Potassium, pl 3.6 3.3 - 4.9 mmol/L Chloride 98 97 - 110 mmol/L CO2 26 22 - 32 mmol/L Anion gap 12 2 - 15 mmol/L BUN 13 8 - 25 mg/dL Creatinine 0.75 0.60 - 1.10 mg/dL Glucose 189 70 - 199 mg/dL Calcium 9.8 8.5 - 10.3 mg/dL Bilirubin, total 0.6 0.1 - 1.2 mg/dL Protein, pl 8.3 6.5 - 8.5 g/dL Albumin 3.5 3.5 - 5.0 g/dL Alk phos 156 (H) 40 - 130 Units/L ALT 24 7 - 45 Units/L AST 23 10 - 45 Units/L Differential, auto Collection Time: 01/04/20 5:29 PM Result Value Ref Range Neutrophil abs 15.2 (H) 1.7 - 6.5 K/cumm Imm gran abs 0.2 (H) 0.0 - 0.1 K/cumm Lymphocyte abs 1.7 0.8 - 3.3 K/cumm Monocyte abs 1.2 (H) 0.2 - 0.8 K/cumm Eosinophil abs 0.1 0.0 - 0.5 K/cumm Basophil abs 0.0 0.0 - 0.1 K/cumm Neutrophil pct 82.9 % Imm gran pct 0.9 % Lymphocyte pct 9.2 % Monocyte pct 6.5 % Eosinophil pct 0.3 % Basophil pct 0.2 % eGFR Collection Time: 01/04/20 5:29 PM Result Value Ref Range GFR 81 mL/min/1.73 m2 Radiology: Xr Foot Right 3 Or More Views Result Date: 12/15/2019 Narrative: EXAMINATION: XR FOOT RIGHT 3 OR MORE VIEWS ORDERING HEALTHCARE PROVIDER: ISAEL DICK HISTORY: xr foot. 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 Patient poor historian, bandages placed. TECHNIQUE: Right foot 3 views. COMPARISON: None cornell ilable FINDINGS: BONES/JOINTS: The bone mineralization is normal. There is no acute fracture or dislocation. Oblique view, there is cortical indistinctness at the 1st distal phalangeal base and at the adjacent 1st proximal phalangeal head. These raise concern for osteomyelitis if there is overlying soft tissue ulceration. If this is of strong clinical concern, MRI could be considered. 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 SOFT TISSUES: No acute findings. No radiopaque foreign body. OTHER: Vascular calcifications. Impression: Cortical indistinctness at the 1st proximal phalangeal head and distal phalangeal base,raising concern for osteomyelitis if there is overlying skin ulceration. Electronically signed by: Eliseo Cedeño M.D. Mri Foot Right W Wo Contrast Result Date: 12/27/2019 Narrative: Patient Name: SIXTO CHAKRABORTY Dr: Guy Walsh MD, D.O.B: 1950 Exam Date: 12/26/192044 Age: 69 Sex: Female MR#: [id number] Loc: RADIOLOGY REPORT Order #[id number] Magnetic Resonance Imaging MRI Foot Right W/WO Contrast Signed EXAM DESCRIPTION: MRI Foot Right W/WO Contrast REASON FOR STUDY: Wounds to dorsal/plantar surfaces between all toes. Wounds began in July shortly after getting nails trimmed. TECHNIQUE: Multiplanar, multisequence MRI of the right foot was performed before and after contrast. CONTRAST TYPE/DOSE: 11 cc Dotarem injected through the left antecubital fossa through a 23 gauge IV COMPARISON: None FINDINGS: Bones: Slightly fragmented appearance of the 1st distal phalanx, likely related to old injury. There is mild bone marrow edema at the 1st interphalangeal joint. There is subchondral cystic change about the 1st metatarsal head-likely degenerative in nature. There is T1 marrow signal replacement about the 4th proximal phalanx with associated bone marrow edema. Findings are concerning for osteomyelitis in the appropriate setting. There are similar but less pronounced findings atthe 4th middle phalanx. The 4th distal phalanx demonstrate T1 marrow signal, however, has edema. This is likely reactive. There is additional bone marrow edema noted at the 2nd proximal and middle phalanx which is nonspecific and may be related to osteitis. Articulations: There is scattered osteoarthritis, most severe at the 1st metatarsophalangeal joint with subchondral cystic change about the 1st metatarsal head and opposing medial hallux sesamoid. Soft Tissues: Diffuse nonspecific soft tissue edema centered over dorsum of the foot. Diffuse plantar intramuscular edema. Small amount of intermetatarsal bursal fluid is noted at the 1st web space. Tendons: The flexor and extensor tendons are intact. Lisfranc Ligament: Intact. Post Contrast Findings: Enhancement is noted at the 1st distal phalanx, 2nd proximal, middle, and distal phalanges, 4th proximal mid and distal phalanx. A central portion of the 4th proximal phalanx appears to be nonenhancing which may be reflective of an area of chronic osteomyelitis. No identifiable fluid collection or abscess. Other: No other finding. IMPRESSION: 1. Abnormal T1 marrow signal within the 4th proximal and middle phalanx with associated edema. Findings are compatible with osteomyelitis. Given appearance of central nonenhancement within the 4thproximal phalanx, this may be related to an acute on chronic process. Recommend correlation with physical examination and clinical history. 2. Bone marrow edema is also noted about the 1st distal and2nd proximal through distal phalanges without T1 signal replacement. Findings are likely related toreactive osteitis though early osteomyelitis is not excluded in the appropriate clinical setting and ulceration. 3. 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 ASSESSMENT AND PLAN: Principal Problem: Acute osteomyelitis of toe of right foot (CMS/HCC) Wound cultures and blood cultures obtained. Started on Cipro Flagyl and vancomycin. Continue IV fluid Wound care consult Podiatry consult ID consult Arterial Doppler in a.m. with TEO Active Problems: Schizophrenia (CMS/HCC) Restart home medications Diabetic neuropathy (CMS/HCC) On gabapentin Uncontrolled type 2 diabetes mellitus with hyperglycemia (CMS/HCC) Continue Lantus and low-dose sliding scale insulin Ulcer of toe of right foot, with fat layer exposed (CMS/HCC) Continue local wound care. Podiatry consulted. Essential hypertension Restart cardiac pertinent home medications. Principal Problem: Acute osteomyelitis of toe of right foot (CMS/HCC) Active Problems: Schizophrenia (CMS/HCC) Diabetic neuropathy (CMS/HCC) Uncontrolled type 2 diabetes mellitus with hyperglycemia (CMS/HCC) Ulcer of toe of right foot, with fat layer exposed (CMS/HCC) Essential hypertension Full Code Expected LOS: More than 2 midnights MDM: High complexity Emile Escudero MD Internal Medicine - Hospitalist [facility] - Adult Hospitalist Service CC: Cherelle Corcoran MD documented in this encounter Consult Notes * Anat Pelayo DPM - 01/05/2020 12:24 PM CDTAssociated Order(s): IP CONSULT TO PODIATRY Podiatry Consult Reason for Consult: gangrene right foot Subjective Patient is a 69 y.o. female with chief complaint of nonhealing ulcerations of the right foot. HPI: Pt has been seen in the wound care center for care of nonhealing ulcerations in the right foot. She had an MRI in early December that demonstrated bone infection in the 4th digit and possible osteomyelitis in the first and 2nd digits. She is diabetic and has poorly controlled blood sugars. Past Medical History: Diagnosis Date ??? Arthritis ??? Depression ??? Diabetic neuropathy (CMS/HCC) ??? Hypertension ??? Schizophrenia (CMS/HCC) Past Surgical History: Procedure Laterality Date ??? SECTION HOME MEDICATIONS : insulin glargine (LANTUS,BASAGLAR) 100 unit/mL (3 mL) insulin pen ciprofloxacin (CIPRO) 500 mg tablet gabapentin (NEURONTIN) 400 mg capsule insulin syringe-needle U-100 (BD Insulin Syringe Ultra-Fine) 1 mL 31 gauge x 5/16 syringe lisinopriL (PRINIVIL,ZESTRIL) 10 mg tablet pen needle, diabetic 32 gauge x 3/16 needle VALERIAN ROOT ORAL Victoza 2-Vivek 0.6 mg/0.1 mL (18 mg/3 mL) injection No Known Allergies Social History Tobacco Use ??? Smoking status: Never Smoker ??? Smokeless tobacco: Never Used Substance Use Topics ??? Alcohol use: Not Currently Family History Problem Relation Age of Onset ??? Stomach cancer Father Review of Systems: Constitutional: negative for chills, fevers and night sweats ENT: denies ringing in ears, no productive cough or runny nose Cardiovascular: No current chest pain or SOB GI: no abdominal pain, constipation, loose stools, nausea, or vomiting Extremities: Pain in right foot toes Psych: No suicidal or homicidal ideations Vitals: 24hr Min/Max: Temp Min: 36.6 ??C (97.9 ??F) Max: 37.2 ??C (98.9 ??F) Pulse Min: 76 Max: 104 BP Min: 107/51 Max: 182/91 Resp Min: 16 Max: 18 SpO2 Min: 93 % Max: 100 % Most Recent : Vitals: 01/05/20 0817 BP: 107/51 Pulse: 76 Resp: 18 Temp: 36.6 ??C (97.9 ??F) SpO2: 93% I/O last 2 completed shifts: In: 1242 [I.V.:1242] Out: - No intake/output data recorded. Objective Physical Exam: General appearance: Vascular: Pedal pulses diminished. Hair growth absent. Mild erythema and edema. Neuro:Epicritic sensation diminished. Musculoskeletal: 4/5muscle strength for all muscles crossing the ankle joint. No pain with compression of calf musculature. Derm: Wounds interdigitally on right foot with exposed bone on right 4th digit. No exposed bone on right first or 2nd digit currently. No purulence or malodor. Lab/Radiology/Diagnostic Review: Laboratory review: Chemistry CMP: Lab Results Component Value Date ALBUMIN 2.6 (L) 01/05/2020 BUNSER 17 01/05/2020 CALCIUM 8.4 (L) 01/05/2020 CO2 25 01/05/2020 CHLORIDE 99 01/05/2020 CREATININE 0.98 01/05/2020 GLUCOSE 179 (H) 01/05/2020 GLUCOSE 278 (H) 01/05/2020 POTASSIUM 3.9 01/05/2020 SODIUM 132 (L) 01/05/2020 BILITOT 0.3 01/05/2020 PROT 6.3 (L) 01/05/2020 ALT 18 01/05/2020 AST 20 01/05/2020 ALKPHOS 116 01/05/2020 , CBC: Lab Results Component Value Date WBC 15.1 (H) 01/05/2020 RBC 2.72 (L) 01/05/2020 HGB 8.0 (L) 01/05/2020 HCT 24.7 (L) 01/05/2020 MCV 90.8 01/05/2020 MCH 29.4 01/05/2020 MCHC 32.4 01/05/2020 RDWCV 13.8 01/05/2020 RDWSD 45.2 01/05/2020 MPV 9.6 01/05/2020 NRBCABS 0.00 01/05/2020 and POC Glucose: Lab Results Component Value Date GLUCOSE 179 (H) 01/05/2020 GLUCOSE 278 (H) 01/05/2020 MRI right foot from 12/22/19 1. Abnormal T1 marrow signal within the 4th proximal and middle phalanx with associated edema. Findings are compatible with osteomyelitis. Given appearance of central nonenhancement within the 4th proximal phalanx, this may be related to an acute on chronic process. Recommend correlation with physical examination and clinical history. 2. Bone marrow edema is also noted about the 1st distal and 2nd proximal through distal phalanges without T1 signal replacement. Findings are likely related to reactive osteitis though early osteomyelitis is not excluded in the appropriate clinical setting and ulceration. 3. 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 ABIs IMPRESSION: 1. Normal right ankle brachial index. 2. Normal left ankle brachial index. Assessment /Plan Principal Problem: Acute osteomyelitis of toe of right foot (CMS/HCC) Active Problems: Schizophrenia (CMS/HCC) Diabetic neuropathy (CMS/HCC) Uncontrolled type 2 diabetes mellitus with hyperglycemia (CMS/HCC) Ulcer of toe of right foot, with fat layer exposed (CMS/HCC) Essential hypertension Plan: I examined patient and reviewed labs. I reviewed previous MRI. I reviewed ABIs. I recommended [id number] digit amputation with wound debridement and possible bone biopsy right foot. We will work on scheduling this for tomorrow. Pre op orders placed. Anat Pelayo DPM 01/05/2020 * Erna Anthony MD - 01/05/2020 12:02 PM CDTAssociated Order(s): IP CONSULT TO INFECTIOUS DISEASES Consultation Infectious Diseases Reason for Consult: Right foot osteomyelitis Referring Physician: Jan Chief complaint: Right foot ulcers HPI: Sixto Chakraborty is a 69 y.o. female past medical history positive for diabetes mellitus type 2,peripheral neuropathy, hypertension, schizophrenia, patient has been dealing with right foot ulcerations for the past 4 months. The initial ulcer was located on the 1st toe but over the next weeks additional ulcers appear over the 2nd 3rd and 4th toes. Patient has been attending the wound care center for treatment. An MRI obtain a week ago was concerning for osteomyelitis involving the 4th toe. Day before the admission patient started developing low-grade fevers, she was referred to the hospital for further management. On admission she had leukocytosis up to 15,000 but afebrile. Blood culturehas been obtained. The podiatry service has been consulted. Patient started on Cipro floxacillin metronidazole and vancomycin. Of note previous cultures from the wound Center from December 13 were positive for E coli and yeast. We have been consulted by for suggestions on management. Past Medical History: Past Medical History: Diagnosis Date ??? Arthritis ??? Depression ??? Diabetic neuropathy (CMS/HCC) ??? Hypertension ??? Schizophrenia (CMS/HCC) Surgical History Past Surgical History: Procedure Laterality Date ??? SECTION Social History Social History Socioeconomic History ??? Marital status: [...] file Gets together: Not on file Attends druze service: Not on file Active member of [...] History Narrative ??? Not on file Family Medical History Family History Problem Relation Age of Onset ??? Stomach cancer Father Allergies No Known Allergies Medications Current Facility-Administered Medications: ??? acetaminophen (TYLENOL) tablet 650 mg, 650 mg, oral, Q4H PRN, Emile Escudero MD ??? amLODIPine (NORVASC) tablet 5 mg, 5 mg, oral, Daily, Emile Escudero MD, 5 mg at 01/05/20 08 ??? bisacodyl EC (DULCOLAX EC) tablet 10 mg, 10 mg, oral, Daily PRN, Mathew Mccullough MD ??? ciprofloxacin (CIPRO) 400 mg/200 mL in dextrose 5% (premix) 400 mg, 400 mg, intravenous, Q12H SOL, Emile Escudero MD, Last Rate: 200 mL/hr at 01/05/2033, 400 mg at 01/05/20 08 ??? dextrose gel in packet 15 g, 15 g, oral, Q15 Min PRN OR dextrose (D10W) 10% bolus 250 mL, 250 mL, intravenous, Q15 Min PRN, Emile Escudero MD ??? docusate sodium (COLACE) capsule 100 mg, 100 mg, oral, BID PRN, Emile Escudero MD ??? enoxaparin (LOVENOX) syringe 40 mg, 40 mg, subcutaneous, Daily-2100, Emile Escudero MD, 40 mgat 01/04/202053 ??? gabapentin (NEURONTIN) capsule 400 mg, 400 mg, oral, TID, Emile Escudero MD, 400 mg at 01/05/20827 ??? glucagon injection 1 mg, 1 mg, intramuscular, Q30 Min PRN, Emile Escudero MD ??? hydrALAZINE (APRESOLINE) injection 10 mg, 10 mg, intravenous, Q4H PRN, Emile Escuedro MD ??? HYDROcodone-acetaminophen (NORCO) 5-325 mg per tablet 1 tablet, 1 tablet, oral, Q4H PRN, Emile Escudero MD, 1 tablet at 01/05/20 0549 ??? insulin glargine (LANTUS,BASAGLAR) pen injection 25 Units, 25 Units, subcutaneous, Nightly, Emile Escudero MD, 25 Units at 01/04/202206 ??? insulin lispro (HumaLOG) pen injection 1-4 Units, 1-4 Units, subcutaneous, Nightly, Emile Escudero MD, 4 Units at 01/04/202205 ??? insulin lispro (HumaLOG) pen injection 1-7 Units, 1-7 Units, subcutaneous, TID with meals, Emile Escudero MD, 3 Units at 01/05/2032 ??? Lactated Ringer's (LR) infusion, 125 mL/hr, intravenous, Continuous, Emile Escudero MD, Last Rate: 125 mL/hr at 01/05/20832, 125 mL/hr at 01/05/20832 ??? lisinopriL (PRINIVIL,ZESTRIL) tablet 10 mg, 10 mg, oral, Daily, Emile Escudero MD, 10 mg at 01/05/20827 ??? magnesium hydroxide (MILK OF MAGNESIA) 80 mg/mL (33.3 mg/mL as elemental magnesium) oral suspension 30 mL, 30 mL, oral, Daily PRN, Mathew Mccullough MD ??? metroNIDAZOLE (FLAGYL) 500 mg/100 mL in sodium chloride (premix) 500 mg, 500 mg, intravenous, Q8H SOL, Emile Escudero MD, Last Rate: 200 mL/hr at 01/05/20 0549, 500 mg at 01/05/20 0549 ??? mineral oil (FLEET MINERAL OIL) enema 1 enema, 1 enema, rectal, Daily PRN, Mathew Mccullough MD ??? ondansetron ODT (ZOFRAN-ODT) disintegrating tablet 4 mg, 4 mg, oral, Q6H PRN OR ondansetron(ZOFRAN) injection 4 mg, 4 mg, intravenous, Q6H PRN, Emile Escudero MD, 4 mg at 01/05/20826 ??? oxyCODONE (ROXICODONE) tablet 5 mg, 5 mg, oral, Q4H PRN, Emile Escudero MD, 5 mg at 01/05/20826 ??? potassium phosphates 11 mmol in sodium chloride 0.9% 250 mL IVPB, 11 mmol, intravenous, Once, Mathew Mccullough MD, Last Rate: 42.3 mL/hr at 01/05/20 1007, 11 mmol at 01/05/20 1007 ??? sodium chloride 0.9% flush 0.5-20 mL, 0.5-20 mL, intra-catheter, Q8H, Mathew Mccullough MD, 10 mL at 01/04/202055 ??? sodium chloride 0.9% flush 0.5-20 mL, 0.5-20 mL, intra-catheter, PRN, Mathew Mccullough MD ??? vancomycin 750 mg/150 mL in sodium chloride 0.9% (premix) 750 mg, 750 mg, intravenous, Q24H, Emile Escudero MD, 750 mg at 01/04/202050 Review of Systems Constitutional: No fever, no weight change Eyes: No vision changes, no retroorbital pain ENT: No hearing changes, no ear pain Respiratory: No cough, no dyspnea Cardiovascular: No chest pain, no palpitations Gastrointestinal: No abdominal pain, no diarrhea Genitourinary: No dysuria, no hematuria Integumentary: No rash, no itching right foot multiple toes ulcerations. Extremities: No edema Neurologic: No seizures Physical Exam Vitals: 01/05/20 0817 BP: 107/51 Pulse: 76 Resp: 18 Temp: 36.6 ??C (97.9 ??F) SpO2: 93% General Appearance: Alert, cooperative, no distress, appears stated age Head: Normocephalic, without obvious abnormality, atraumatic Eyes: PERRL, conjunctiva normal, Sclera Ears: Normal external ear canals, both ears Nose: Nares normal, septum midline, mucosa normal or sinus tenderness Throat: Lips, mucosa, and tongue normal; teeth and gums normal Back: Symmetric, ROM normal, no CVA tenderness Lungs: CV: Clear to auscultation bilaterally, respirations unlabored Regular rhythm, no murmurs Chest wall: No tenderness or deformity Abdomen: : Soft, non-tender, bowel sounds active , no distension no masses, no organomegaly No lumbar tenderness Extremities: Extremities normal, no cyanosis or edema Skin: Skin color, texture, no rashes multiple areas with superficial ulcerations involving the inter digital space of the right foot. The right 4th toe is swollen. Small amount of drainage noted in dressings. No bad odor. Lymph nodes: Cervical, supraclavicular, and axillary nodes normal Neurologic: Moves all extremities, non focal Imaging No results found. Labs Recent Results (from the past 24 hour(s)) Erythrocyte sedimentation rate Collection Time: 01/04/20 5:29 PM Result Value Ref Range Erythrocyte sedimentation rate 112 (H) 1 - 30 mm/hr CBC with auto differential Collection Time: 01/04/20 5:29 PM Result Value Ref Range WBC 18.3 (H) 3.8 - 9.9 K/cumm Hgb 10.2 (L) 11.9 - 15.5 g/dL Hct 32.2 (L) 35.6 - 45.5 % Plt 470 (H) 150 - 400 K/cumm MPV 10.2 9.1 - 12.3 fL RBC 3.47 (L) 3.90 - 5.20 M/cumm MCV 92.8 81.3 - 96.4 fL MCH 29.4 27.1 - 33.3 pg MCHC 31.7 (L) 32.3 - 35.7 g/dL RDW CV 14.3 11.1 - 14.9 % RDW SD 48.1 35.7 - 48.1 fL NRBC abs 0.00 0.00 - 0.01 K/cumm Comprehensive metabolic panel Collection Time: 01/04/20 5:29 PM Result Value Ref Range Sodium 136 135 - 145 mmol/L Potassium, pl 3.6 3.3 - 4.9 mmol/L Chloride 98 97 - 110 mmol/L CO2 26 22 - 32 mmol/L Anion gap 12 2 - 15 mmol/L BUN 13 8 - 25 mg/dL Creatinine 0.75 0.60 - 1.10 mg/dL Glucose 189 70 - 199 mg/dL Calcium 9.8 8.5 - 10.3 mg/dL Bilirubin, total 0.6 0.1 - 1.2 mg/dL Protein, pl 8.3 6.5 - 8.5 g/dL Albumin 3.5 3.5 - 5.0 g/dL Alk phos 156 (H) 40 - 130 Units/L ALT 24 7 - 45 Units/L AST 23 10 - 45 Units/L Blood culture Blood Antecubital, left Collection Time: 01/04/20 5:29 PM Result Value Ref Range Report Preliminary Report: No growth to date. Blood culture Blood Antecubital, right Collection Time: 01/04/20 5:29 PM Result Value Ref Range Report Preliminary Report: No growth to date. Differential, auto Collection Time: 01/04/20 5:29 PM Result Value Ref Range Neutrophil abs 15.2 (H) 1.7 - 6.5 K/cumm Imm gran abs 0.2 (H) 0.0 - 0.1 K/cumm Lymphocyte abs 1.7 0.8 - 3.3 K/cumm Monocyte abs 1.2 (H) 0.2 - 0.8 K/cumm Eosinophil abs 0.1 0.0 - 0.5 K/cumm Basophil abs 0.0 0.0 - 0.1 K/cumm Neutrophil pct 82.9 % Imm gran pct 0.9 % Lymphocyte pct 9.2 % Monocyte pct 6.5 % Eosinophil pct 0.3 % Basophil pct 0.2 % eGFR Collection Time: 01/04/20 5:29 PM Result Value Ref Range GFR 81 mL/min/1.73 m2 CRP (acute phase) Collection Time: 01/04/20 5:29 PM Result Value Ref Range C-RP 340.9 (H) <=10.0 mg/L POCT glucose Collection Time: 01/04/20 8:56 PM Result Value Ref Range Glucose, POC 363 (H) 71 - 98 mg/dL COVID-19 Coronavirus RNA Nasopharyngeal Collection Time: 01/04/20 9:01 PM Result Value Ref Range COVID-19 Coronavirus RNA Negative Negative CBC with auto differential Collection Time: 01/05/20 12:00 AM Result Value Ref Range WBC 15.1 (H) 3.8 - 9.9 K/cumm Hgb 8.0 (L) 11.9 - 15.5 g/dL Hct 24.7 (L) 35.6 - 45.5 % Plt 388 150 - 400 K/cumm MPV 9.6 9.1 - 12.3 fL RBC 2.72 (L) 3.90 - 5.20 M/cumm MCV 90.8 81.3 - 96.4 fL MCH 29.4 27.1 - 33.3 pg MCHC 32.4 32.3 - 35.7 g/dL RDW CV 13.8 11.1 - 14.9 % RDW SD 45.2 35.7 - 48.1 fL NRBC abs 0.00 0.00 - 0.01 K/cumm Comprehensive metabolic panel Collection Time: 01/05/20 12:00 AM Result Value Ref Range Sodium 132 (L) 135 - 145 mmol/L Potassium, pl 3.9 3.3 - 4.9 mmol/L Chloride 99 97 - 110 mmol/L CO2 25 22 - 32 mmol/L Anion gap 8 2 - 15 mmol/L BUN 17 8 - 25 mg/dL Creatinine 0.98 0.60 - 1.10 mg/dL Glucose 278 (H) 70 - 199 mg/dL Calcium 8.4 (L) 8.5 - 10.3 mg/dL Bilirubin, total 0.3 0.1 - 1.2 mg/dL Protein, pl 6.3 (L) 6.5 - 8.5 g/dL Albumin 2.6 (L) 3.5 - 5.0 g/dL Alk phos 116 40 - 130 Units/L ALT 18 7 - 45 Units/L AST 20 10 - 45 Units/L Magnesium Collection Time: 01/05/20 12:00 AM Result Value Ref Range Magnesium 1.9 1.4 - 2.5 mg/dL Phosphorus Collection Time: 01/05/20 12:00 AM Result Value Ref Range Phosphorus, pl 2.5 2.3 - 4.5 mg/dL Protime-INR Collection Time: 01/05/20 12:00 AM Result Value Ref Range PT 16.5 (H) 9.5 - 13.0 sec INR 1.4 (H) 0.9 - 1.2 aPTT Collection Time: 01/05/20 12:00 AM Result Value Ref Range aPTT 31 25 - 37 sec Differential, auto Collection Time: 01/05/20 12:00 AM Result Value Ref Range Neutrophil abs 12.2 (H) 1.7 - 6.5 K/cumm Imm gran abs 0.1 0.0 - 0.1 K/cumm Lymphocyte abs 1.6 0.8 - 3.3 K/cumm Monocyte abs 1.1 (H) 0.2 - 0.8 K/cumm Eosinophil abs 0.0 0.0 - 0.5 K/cumm Basophil abs 0.0 0.0 - 0.1 K/cumm Neutrophil pct 81.0 % Imm gran pct 0.5 % Lymphocyte pct 10.8 % Monocyte pct 7.3 % Eosinophil pct 0.3 % Basophil pct 0.1 % eGFR Collection Time: 01/05/20 12:00 AM Result Value Ref Range GFR 59 mL/min/1.73 m2 POCT glucose Collection Time: 01/05/20 2:15 AM Result Value Ref Range Glucose, POC 236 (H) 71 - 98 mg/dL POCT glucose Collection Time: 01/05/20 8:12 AM Result Value Ref Range Glucose, POC 177 (H) 71 - 98 mg/dL POCT glucose Collection Time: 01/05/20 11:42 AM Result Value Ref Range Glucose, POC 179 (H) 71 - 98 mg/dL Impression/Plan: Principal Problem: Acute osteomyelitis of toe of right foot (CMS/HCC) Active Problems: Schizophrenia (CMS/HCC) Diabetic neuropathy (CMS/HCC) Uncontrolled type 2 diabetes mellitus with hyperglycemia (CMS/HCC) Ulcer of toe of right foot, with fat layer exposed (CMS/HCC) Essential hypertension Patient is a 69-year-old female history of diabetes mellitus type 2, peripheral neuropathy, chroniculcerations involving the right foot recently diagnosed with osteomyelitis involving the right 4th toe. The etiology of infection remains unclear at this time, wound cultures from 2 weeks ago positive for E coli and yeast from the wound Care Center. Podiatry to evaluate the patient for possible right 4th toe amputation. Inflammatory markers are significantly elevated. Initial leukocytosis is slowly improving. Blood cultures from the admission remain negative. I will continue with current antibiotics at this point awaiting for surgical intervention. Arterial Dopplers have been requested and the results are pending.. Thanks for this consultation. Erna Anthony MD [place] [facility] Office [phone] documented in this encounter Nursing Notes * Mary Leach RN - 01/10/2020 4:53 PM CDT Daughter on Phone saying no one told her of an upcoming discharge this morning, that she is just getting off work and is not prepared to picker packer patient and no one has shown her how to use or clean the port, ( PICC line to left upper arm) and she was under the impression that patient would be here for another few days. Attempted to explain home health would be there to teach her how to use and clean the PICC line Gino would given all IV medications for today. Daughter still not ready and wanting to talk to the person who discharged the patient, 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 to [facility] desk given. * Mary Leach RN - 01/10/2020 4:46 PM CDT Patient dressed and is calling daughter for discharge. Patient would like me to wait for daughter to be present before going over discharge instructions. * Gunner Bazan RN - 01/06/2020 6:43 PM CDT Patient began to run a fever of 100.3f around 1600, made aware and tylenol was given. Temperature was rechecked and was 102.5, MD was made aware and changes were made to medications. See orders. * Claudia Nguyen RN - 01/04/2020 8:11 PM CDT Pt was direct admit this evening. Pt was at the wound center earlier today. Pt had a fever and Dr. Dick stated that the pt needed to be admitted for IV antibiotics. No beds were available at that time, so pt was called back when a clean bed was available. Pt was accompanied by her daughter. Dressing was removed form the right foot and pictures were taken and placed in the chart. Wound cleansed, and dressed with betadine, 4x4 weaved between the toes and Kerlix. Pt wound states on the plantar aspect of her right great toe and the wounds extend in between all 5 toes. Pt is alert and oriented, and stated her pain was a 9, PRN pain medications were ordered and given. Care was resumed by HS nurse, and an IV was inserted to the pts left forearm. documented in this encounter Miscellaneous Notes * Plan of Care - Olivier Quezada RN - 01/11/2020 5:36 PM CDT Problem: Health Behavior: Goal: Understanding [...] injury in home environment Outcome: Completed Problem: Lack of Knowledge: Goal: Knowledge of the prescribed therapeutic regimen will improve Outcome: Completed Problem: Nutritional: Goal: Nutritional status will improve Outcome: Completed Problem: Lack of Knowledge: Goal: Verbalization of understanding the information provided will improve Outcome: Completed Problem: Physical Regulation: Goal: Complications related to the disease process, condition or treatment will be avoided or minimized Outcome: Completed Goals: Clinical Goals for the Shift: vital signs are stable, blood glucose wnl and IV antibiotics given asordered Summary: Pt is Alert and oriented all of shift and up independent in the room. Vital signs are stable. Pt medicated with prn for pain two times. Dressing remains dry and intact. Pt vanc held this afternoon due to high trough. Pt will be d/c to home with daughter. PICC line in place. * Provider Query - Mathew Mccullough MD - 01/11/2020 1:15 PM CDT Please clarify the Present on Admission status and document in the medical record and on the form below. Diagnosis sepsis ____ Was present on admission ____ Was NOT present on admission ____ Clinically unable to determine if present on admission. Clinical Indicators/Treatments/Procedures: 69 y o F admitted with osteomyelitis, hx of schizophrenia, htn, dm, foot ulcer, depression - noted to have foot ulcer to rt foot, afebrile before amputation surgery on 01/05, has been febrileoff and on with t max up to 102.3, blood cx x2 neg, tissue and bone cx positive for mrsa, wbc 16, HR in 90s up to 100 at times, on iv abx, picc line placed, Dr Parada answered sepsis query with sepsis present - monitor vital signs, cont vanco as ordered, tylenol prn fever Provider Response: Sepsis POA Use of terms such as likely, suspected, possible, or probable (associated with a specific diagnosisthat is being evaluated, monitored, or treated as if it exists) are acceptable and can be coded in the inpatient setting when documented at the time of discharge. This documentation will become part of the patient's medical record. Sincerely, Natacha Jay RN, CDS Clinical Dramatic Art Teacher [phone] * Plan of Care - Darlyn Hernandez RN - 01/11/2020 3:10 AM CDT Goals: Clinical Goals for the Shift: VSS. continue with plan of care. remain free from falls or injury Summary: VSS. A&O x4. Up with 1 assist in room. PICC to LUE. Dressing was changed this shift. Rfoot dressing remains clean, dry, intact. Medicated with prn tylenol for pain x1. Nightly meds given per orders. Blood sugars wnl. Pt resting in bed. Call light in reach. Will continue with care and monitoring. * Plan of Care - Mary Leach RN - 01/10/2020 5:20 PM CDT Goals: Clinical Goals for the Shift: continue with current plan of care Summary: discharge orders done. Daughter unsure if ready to picker packer patient and unsure on PICC care. [facility] desk number given to assist with questions this RN was unable to answer to daughters satisfaction. * Plan of Care - Mary Leach RN - 01/10/2020 2:48 PM CDT Goals: Clinical Goals for the Shift: continue with current plan of care Summary: discharge home with home health for antibiotics and wound care. * Plan of Care - Daisy Green MSW - 01/10/2020 11:05 AM CDT Spoke to pt's daughter Areli re assistant terminal manager IV abx at ca. Daughter prefers for pt to return home and have [facility] Home [facility]. Daughter and other family members can assist with infusion. Notified ROSE MARIE Subramanian of HH choice. * Plan of Care - Lakia Crabtree RN - 01/10/2020 3:54 AM CDT Goals: Clinical Goals for the Shift: Pt to remain free of injury, pain management, VS and labs continue toimprove Summary: Pt c/o pain of an 11/29 this shift and PRN pain medication was administered as ordered x1. Pt has been resting comfortably since. Morning labs ordered and have been drawn via PICC line to the LUE. VS and blood glucose have been within range. Bed alarm is on and frequent rounding has been performed this shift. Will continue to monitor and treat pt as needed. * Post-Procedure Note - Ruby Bang RN - 01/09/2020 4:40 PM CDT Single lumen picc placed in left upper arm using sterile technique without difficulty. Placement confirmed in cavo-atrial junction per EKG (green jessie). Flushes easily with good blood return. No bleeding or hematoma noted. Pt tolerated well. * Plan of Care - Claudia Nguyen RN - 01/09/2020 3:32 PM CDT Goals: Clinical Goals for the Shift: pain control, wound healing, free from falls and injury, Summary: Pt is alert and oriented, however appears forgetful at times. Plans for pt to have a PICC line placed this afternoon for 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 IV antibiotics. Pt had complaints of pain this am and prn medications given as ordered. Dressing to right foot is clean and intact, and to be dressed by podiatry. Pt also had an Echo this afternoon. * Provider Query - Mathew Mccullough MD - 01/09/2020 2:20 PM CDT Please clarify the most likely etiology of the patient???s symptoms. Indicate Present on Admission status. SIRS or Sepsis Syndrome does not equate to Sepsis. It is only a constellation of symptoms ___ Sepsis (infection plus systemic manifestations) ___ Localized infection such as UTI, pneumonia, etc WITHOUT systemic manifestations ___ Other, specify below ___ Clinically unable to determine POA ___Yes ___No Clinical Indicators/Treatments: 69 y o F admitted with osteomyelitis, hx of schizophrenia, htn, dm, foot ulcer, depression - noted to have foot ulcer to rt foot, afebrile before amputation surgery on 01/05, has been febrileoff and on with t max up to 102.3, blood cx x2 neg, tissue and bone cx positive for mrsa, wbc 16, HR in 90s up to 100 at times, on iv abx - monitor vital signs, cont vanco as ordered, tylenol prn fever Provider Response: Sepsis 2ry to diabetic foot infection and osteomyelitis Adult SIRS/Sepsis Screening Criteria SIRS Temp >38.3 C (100.9 F) or <36 (96.8 F) HR (pulse) >90 Respiratory rate >20 WBC > 12,000 or <4,000 or >10% bands Sepsis 2 of 4 SIRS criteria present AND suspected/confirmed source of infection Severe Sepsis Sepsis plus at least one sign of NEW hypoperfusion or organ dysfunction not limited to but may include: - Lactate >2 mmol/L - INR > 1.5 or aPTT >60 seconds - Platelet count <100,000 ??L?1 - Bilirubin >2 mg/dL - Creatinine >2 mg/dL (if no documentation of renal failure) - Urine output <0.5 mL/kg/hr x 2 hours - Acute respiratory failure with new need for mechanical ventilation or noninvasive ventilation - Altered mental status or Encephalopathy (new or acutely worsened due to infection) - One or more reading(s) of hypotension prior to 30ml/kg fluid bolus (SBP< 90 mmHG or MAP< 65, or SBP decrease of > 40 mmHG from baseline) Septic Shock Severe sepsis patients with: - Two or more readings of hypotension (SBP <90 or MAP< 65) after 30ml/kg fluid bolus, often requiring vasopressors or - Lactate >=4 Use of terms such as likely, suspected, possible, or probable (associated with a specific diagnosisthat is being evaluated, monitored, or treated as if it exists) are acceptable and can be coded in the inpatient setting when documented at the time of discharge. This documentation will become part of the patient???s medical record. Sincerely, Natacha Jay RN, CDS Clinical Dramatic Art Teacher [phone] * Provider Query - Anat Pelayo DPM - 01/09/2020 2:15 PM CDT Please clarify the debridement on 01/05 on right hallux 1. Type of Debridement: The term Excisional or Non-Excisional MUST BE included in documentation. * Sharp and Incisional are not codeable responses* ___ Excisional - Defined as cutting away of devitalized tissue, necrosis, or slough ___ Non-Excisional - Defined as removal of tissue by brushing, irrigating, scrubbing, washing, or minor removal of loose fragments or scraping away tissue 2. Depth of Debridement * The term ???Down to?? is not a codeable response* ___ Skin removed __xSubcutaneous tissue removed ___ Fascia removed ___ Muscle removed ___ Tendon removed ___ Bone removed Clinical Indicators/Treatments: 69 y o F admitted with osteomyelitis of rt foot, hx of dm, htn, schizophrenia, depression - amputation and debridement done on 01/05 joint and digit of 4th metatarsalophalngeal joint disarticulated, avascular structures such as tendon were sharply excised - cont local wound care per podiatry, cont drsg changes, cont vanco as ordered Provider Response: Subcutaneous tissue and devitalized tissue was sharply excised with a 15 blade and curette Use of terms such as likely, suspected, possible, or probable (associated with a specific diagnosisthat is being evaluated, monitored, or treated as if it exists) are acceptable and can be coded in the inpatient setting when documented at the time of discharge. This documentation will become part of the patient???s medical record. Sincerely, Natacha Jay RN, CDS Clinical Dramatic Art Teacher [phone] * Plan of Care - Lakia Crabtree RN - 01/09/2020 3:08 AM CDT Goals: Clinical Goals for the Shift: Pt to remain free of injury, pain management, VS and labs continue toimprove Summary: Pt c/o right foot pain and PRN norco was administered for pain as ordered. VS have remained stable and blood glucose has been within range. Right foot dressing is clean, dry, and intact. Nighttime medications administered as ordered. Call light is within reach and frequent rounding has been performed. Will continue to monitor and treat pt as needed. * Plan of Care - Kimi Malone RN - 01/08/2020 5:58 PM CDT Problem: Health Behavior: Goal: Understanding [...] therapeutic regimen will improve Outcome: Progressing Problem: Nutritional: Goal: Nutritional status will improve Outcome: Progressing Goals: Clinical Goals for the Shift: Pain controlled. No falls or injuries. VItals and labs stable. Dressing changes as ordered. Continue iv antibiotics. Summary: Pt give Hydrocodone x1 for complaints of rt foot pain. Dr. Golden here this afternoon and changed dressing to right foot. Vitals stable. Up with 1 assist to [facility] without difficulty. * Plan of Care - Lakia Crabtree RN - 01/08/2020 3:08 AM CDT Goals: Clinical Goals for the Shift: Pt to remain free of injury, pain management, VS and labs continue toimprove Summary: Pt is alert to self, place, and situation this shift. She has been resting comfortably in bed and has c/o right foot pain (10/10) and PRN tylenol was administered as ordered. Pt had fever of101.4F and pt was given a fan. made aware and ordered echocardiogram due to sustained fever. Right foot dressing is clean, dry, and intact. Call light is within reach and frequent rounding has been performed. Will continue to monitor and treat pt as needed. * Plan of Care - Kimi Malone RN - 01/07/2020 7:02 PM CDT Problem: Health Behavior: Goal: Understanding [...] therapeutic regimen will improve Outcome: Progressing Problem: Nutritional: Goal: Nutritional status will improve Outcome: Progressing Goals: Clinical Goals for the Shift: Pain controlled. No falls or injuries. VItals and labs stable. Dressing changes as ordered. Continue iv antibiotics. Summary: Pt with complaints of pain to rt foot. Pain medications given x1 for shift. Vitals stable.Dressing to right foot remains dry and intact. Family at bedside. No falls or injuries. * [facility] [place] - Maliha Sidhu RN - 01/07/2020 4:08 AM CDT Problem: Health Behavior: Goal: Understanding [...] therapeutic regimen will improve Outcome: Progressing Problem: Nutritional: Goal: Nutritional status will improve Outcome: Progressing Problem: Nutritional: Goal: Nutritional status will improve Outcome: Progressing Goals: Clinical Goals for the Shift: Surgical site clean dry and intact, vital signs stable, adequate paincontrol, IV antibiotics Summary: Pt is alert and oriented to self, , and knows who the president is. She has no complaints of pain. She is a little confused this shift. Vital signs stable. She is up with assist. IV antibiotic given. Surgical dressing clean, dry and intact. Bed alarm on for safety. Call light within reach. Will continue to monitor. * Plan of Care - Gunner Bazan RN - 01/06/2020 5:36 PM CDT Problem: Health Behavior: Goal: Understanding [...] therapeutic regimen will improve Outcome: Progressing Problem: Nutritional: Goal: Nutritional status will improve Outcome: Progressing Goals: Clinical Goals for the Shift: get surgery on toe, control pain, vss no falls or injuries Summary: Patient rested in bed. Alert and oriented x4 on room air. Patient had right fourth toe amputation. Patient is stable and free of pain, daughter is visiting in the room with patient. Vss, will continue to monitor and treat as ordered. * Brief Op Note - Anat Pelayo DPM - 01/06/2020 12:42 PM CDT Operative Progress Note Surgical Team: Surgeon(s) and Role: * Anat Pelayo DPM - Primary Anesthesiologist: Nilson Marrero MD CHILD WELFARE WORKER: Nelly Jacobson CRNA Respiratory Manager: Brittney Teresa RN Scrub: Taniya Medina RN Respiratory Manager Second: Mi Newberry RN DATE OF SURGERY : 01/06/2020 Preoperative Diagnosis: Right foot osteomyelitis Diabetic Wounds right foot Postoperative Diagnosis: Same Procedure(s): Procedure(s) (LRB): AMPUTATION 4th toe right foot with wound debridement and bone biopsy. (Right) Operative Findings: See dictation Estimated Blood Loss: Less than 10mLs Specimens: ID Type Source Tests Collected by Time A : Right fourth toe Tissue Bone Fragment(s), SURGICAL PATHOLOGY Anat Pelayo DPM 01/06/2020 1255 Implants: Nothing was implanted during the procedure Complications: None Condition on Discharge from the operating room was stable Anat Pelayo DPM Date: 01/06/2020 Time: 1:12 PM No Resident involved on case * Provider Query - Mathew Mccullough MD - 01/06/2020 8:38 AM CDT Please clarify the condition you are evaluating, treating or monitoring and document in the medicalrecord and the form below. Indicate Present on Admission status. ____ Anemia of other chronic disease (specify below) ____ Iron deficiency anemia ____ Precipitous drop in Hemoglobin or Hematocrit ____ Findings clinically insignificant ____ Other (specify below) ____ Clinically unable to determine Clinical Indicators/Treatments: 69 y o F admitted with OM rt foot, hx of dm, neuropathy, htn, foot ulcer, schizophrenia - on adm 01/03 H/H 10.2/32.2 01/04 H/H 8.0/24.7, 01/05 H/H 8.1/25.3, no active bleeding, did get some iv fluids - monitor H/H, monitor for active bleeding, transfuse prbc as needed Provider Response: Anemia of chronic disease Use of terms such as likely, suspected, possible, or probable (associated with a specific diagnosisthat is being evaluated, monitored, or treated as if it exists) are acceptable and can be coded in the inpatient setting when documented at the time of discharge. This documentation will become part of the patient's medical record. Sincerely, Natacha Jay RN, CDS Clinical Dramatic Art Teacher [phone] * Plan of Care - Maliha Sidhu RN - 01/06/2020 3:55 AM CDT Problem: Health Behavior: Goal: Understanding [...] injury in home environment Outcome: Progressing Problem: Nutritional: Goal: Nutritional status will improve Outcome: Progressing Goals: Clinical Goals for the Shift: Free from falls, stable vitals and labs, adequate pain control, IV antibiotics, npo Summary: Pt is alert and oriented. She had complaints of pain, prn med given. IV fluids infusing. IV antibiotics given. Blood sugars stable. Vital signs stable. Pt NPO for amputation, debridement andpossible bone biopsy. Pt is still not accepting to the amputation of her toe. Surgical bath was completed. Call light within reach. Bed alarm on for safety. Will continue to monitor. * Op Note - Anat Pelayo DPM - 01/06/2020 12:00 AM CDT Surgeon Anat Pelayo DPM Preoperative Diagnosis Osteomyelitis, right foot. Postoperative Diagnosis Osteomyelitis, right foot. Procedure Amputation right 4th digit and debridement and bone biopsy, right hallux, pathology bone from [id number] digit sent for both bone culture and for histopathological examination, and bone from right hallux sent for bone culture. Anesthesia Local with monitored anesthesia care. Hemostasis Pneumatic ankle tourniquet never inflated. Estimated Blood Loss Less than 10 mL. Materials 4-0 Vicryl, 4-0 nylon. Injectables A total of 10 mL of 0.5% Marcaine plain preoperatively. Complications None. Procedure in Detail Under mild sedation, the patient was brought into the operating room and placed on the operating table in a supine position. A pneumatic ankle tourniquet was placed about the patient's right ankle but was never inflated. Following IV sedation, local anesthesia was obtained about the right foot using a total of 10 mL of 0.5% Marcaine plain. The foot was then scrubbed, prepped, and draped in the usual aseptic manner. Attention was then directed to the base of the right 4th digit where a circumferential incision was made here around the base of the 4th toe. Care was taken to preserve as much viable soft tissue as possible, but there was noted to be a very minimal amount of this as there were ulcerations on the adjacent toes. The incision was continued down to the level of the 4th metatarsophalangeal joint and the digit was disarticulated. Avascular structures such as tendon were sharply excised. There was noted to be 2 mL of purulent drainage upon amputation. At this time, a portion of the right 4th digit proximal phalanx was sent for bone culture and the remaining aspect of the toe was sent for histopathological examination. The wound was then flushed with copious amounts of sterilenormal saline. Subcutaneous tissues were reapproximated with 4-0 Vicryl and skin was reapproximatedwith 4-0 nylon. Upon completion of the procedure on the right 4th digit, attention was directed to the hallux wherea small stab incision was made on the dorsolateral aspect. A Jamshidi needle was inserted into the bone and a sample was extracted. This was sent off for bone culture. The incision line was then reapproximated with 4-0 nylon. Upon completion of the procedures, all wounds and surgical sites were covered with Betadine ointment. The amputation site was covered with Xeroform and a dry sterile dressing was applied consisting of gauze and Kerlix and Coban. It is important to note there were capsular structures visible on the lateral right 3rd digit and the tissue was necrotic. Also prior to dressing the foot all wounds were debrided with a curette and subcutaneous tissue and devitalized tissue were all excised. The patient will be transferred up to her room for postoperative monitoring. Job ID/VF Job ID: [id number] * Plan of Care - Claudia Nguyen RN - 01/05/2020 5:45 PM CDT Goals: Clinical Goals for the Shift: pain control, wound care, free from falls and injury, NPO until further instructions from podiarty Summary: Pt is alert and oriented, has had 2 episodes of emesis this afternoon after lunch, Dr. Pelayo saw pt today and Dr. Pelayo is recommending a right 4th toe amputation with wound debridement and possible bone biopsy. I informed the pt of this and she stated she really does not want to have her toe removed, I educated on why and possible assistant terminal manager treatment plans and complications if she does not have this done. She stated I will have to think about it. Pt has LR infusing at 125 ml/hr. Pt had a K phos rider today. Wounds cleansed and redressed. Orders for MRI placed today by Dr. Webb. * Plan of Care - Maliha Sidhu RN - 01/05/2020 4:00 AM CDT Problem: Health Behavior: Goal: Understanding of discharge needs will improve Outcome: Progressing Problem: Lack of Knowledge: Goal: Ability to state ways to decrease the risk of falls will improve Outcome: Progressing Problem: Safety: Goal: Will remain free from falls Outcome: Progressing Goal: Will remain free from injury from falls Outcome: Progressing Goals: Clinical Goals for the Shift: Free from falls, stable vitals and labs, adequate pain control, IV antibiotics and fluid Summary: Pt is alert and oriented. She had complaints of pain, prn medication given for relief. Shehas gangrene to her RLE. IV fluids infusing. IV antibiotics given. Vital signs stable. She has beenNPO since midnight. Consults for wound, infectious disease and podiatry. Call light within reach. Will continue to monitor. documented in this encounter Plan of Treatment Upcoming Encounters Date Type Department Care Team (Latest Contact Info) Description 07/13/2024 9:00 AM FACILITIES TECHNICIAN Hospital Encounter [facility] [address] [place] [address] Jaya Grier MD [address] [place] [address] 07/13/2024 9:00 AM FACILITIES TECHNICIAN - 07/13/2024 9:30 AM FACILITIES TECHNICIAN Surgery [facility] [address] [place] [address] Jaya Grier MD [address] [place] [address] ESOPHAGOGASTRODUODENOSCOPY Scheduled Procedures Name Priority Associated Diagnoses Date/Ti me ESOPHAGOGASTRODUODENOSCOPY Anemia, unspecified type Gastritis without bleeding, unspecified chronicity, unspecified gastritis type 07/13/2024 9:00 AM FACILITIES TECHNICIAN COLONOSCOPY Iron deficiency anemia due to chronic blood loss documented as of this encounter Procedures Procedure Name Priority Date/Time Associated Diagnosis Comments POCT GLUCOSE DEVICE Routine 01/11/2020 5 :28 PM CDT VANCOMYCIN LEVEL TROUGH Timed 01/11/2020 4:01 PM CDT US VEIN DUPLEX LOWER EXTREMITY RIGHT LIMITED ED Urgent/IP Urgent 01/11/2020 2:09 PM CDT POCT GLUCOSE DEVICE Routine 01/11/2020 1 1:49 AM CDT POCT GLUCOSE DEVICE Routine 01/11/2020 7 :52 AM CDT EGFR Routine 01/11/2020 5:17 AM CDT DIFFERENTIAL AUTO Routine 01/11/2020 5:1 7 AM CDT IRON PROFILE W/ IBC Add-On 01/11/2020 5 :17 AM CDT CBC WITH AUTO DIFFERENTIAL Routine 01/11/2020 5:17 AM CDT CRP (ACUTE PHASE) Routine 01/11/2020 5:1 7 AM CDT PHOSPHORUS Routine 01/11/2020 5:17 AM CDT MAGNESIUM Routine 01/11/2020 5:17 AM CDT FERRITIN Add-On 01/11/2020 5:17 AM CDT COMPREHENSIVE METABOLIC PANEL Routine 01/11/2020 5:17 AM CDT POCT GLUCOSE DEVICE Routine 01/11/2020 2 :23 AM CDT POCT GLUCOSE DEVICE Routine 01/10/2020 9 :12 PM CDT POCT GLUCOSE DEVICE Routine 01/10/2020 1 1:53 AM CDT POCT GLUCOSE DEVICE Routine 01/10/2020 7 :52 AM CDT CRP (ACUTE PHASE) Routine 01/10/2020 3:4 9 AM CDT PHOSPHORUS Routine 01/10/2020 3:49 AM CDT MAGNESIUM Routine 01/10/2020 3:49 AM CDT VANCOMYCIN LEVEL TROUGH Timed 01/10/2020 3:49 AM CDT POCT GLUCOSE DEVICE Routine 01/10/2020 2 :13 AM CDT POCT GLUCOSE DEVICE Routine 01/09/2020 8 :23 PM CDT POCT GLUCOSE DEVICE Routine 01/09/2020 4 :50 PM CDT APTT STAT 01/09/2020 3:29 PM CDT PROTIME-INR STAT 01/09/2020 3:29 PM CDT TRANSTHORACIC ECHO (TTE) COMPLETE W DOPPLER/CF WO CONTRAST Routine 01/09/2020 1:42 PM CDT POCT GLUCOSE DEVICE Routine 01/09/2020 1 1:32 AM CDT POCT GLUCOSE DEVICE Routine 01/09/2020 7 :58 AM CDT EGFR Routine 01/09/2020 4:15 AM CDT DIFFERENTIAL AUTO Routine 01/09/2020 4:1 5 AM CDT CBC WITH AUTO DIFFERENTIAL Routine 01/09/2020 4:15 AM CDT CRP (ACUTE PHASE) Routine 01/09/2020 4:1 5 AM CDT PHOSPHORUS Routine 01/09/2020 4:15 AM CDT MAGNESIUM Routine 01/09/2020 4:15 AM CDT COMPREHENSIVE METABOLIC PANEL Routine 01/09/2020 4:15 AM CDT POCT GLUCOSE DEVICE Routine 01/09/2020 2 :55 AM CDT POCT GLUCOSE DEVICE Routine 01/08/2020 8 :32 PM CDT POCT GLUCOSE DEVICE Routine 01/08/2020 4 :48 PM CDT VANCOMYCIN LEVEL TROUGH Timed 01/08/2020 3:50 PM CDT POCT GLUCOSE DEVICE Routine 01/08/2020 1 1:53 AM CDT POCT GLUCOSE DEVICE Routine 01/08/2020 8 :00 AM CDT EGFR Routine 01/08/2020 3:25 AM CDT DIFFERENTIAL AUTO Routine 01/08/2020 3:2 5 AM CDT CBC WITH AUTO DIFFERENTIAL Routine 01/08/2020 3:25 AM CDT CRP (ACUTE PHASE) Routine 01/08/2020 3:2 5 AM CDT PHOSPHORUS Routine 01/08/2020 3:25 AM CDT MAGNESIUM Routine 01/08/2020 3:25 AM CDT COMPREHENSIVE METABOLIC PANEL Routine 01/08/2020 3:25 AM CDT POCT GLUCOSE DEVICE Routine 01/08/2020 2 :22 AM CDT POCT GLUCOSE DEVICE Routine 01/07/2020 8 :48 PM CDT POCT GLUCOSE DEVICE Routine 01/07/2020 4 :46 PM CDT POCT GLUCOSE DEVICE Routine 01/07/2020 1 1:55 AM CDT POCT GLUCOSE DEVICE Routine 01/07/2020 1 1:22 AM CDT POCT GLUCOSE DEVICE Routine 01/07/2020 7 :54 AM CDT EGFR Routine 01/07/2020 3:32 AM CDT DIFFERENTIAL AUTO Routine 01/07/2020 3:3 2 AM CDT CBC WITH AUTO DIFFERENTIAL Routine 01/07/2020 3:32 AM CDT CRP (ACUTE PHASE) Routine 01/07/2020 3:3 2 AM CDT PHOSPHORUS Routine 01/07/2020 3:32 AM CDT MAGNESIUM Routine 01/07/2020 3:32 AM CDT COMPREHENSIVE METABOLIC PANEL Routine 01/07/2020 3:32 AM CDT POCT GLUCOSE DEVICE Routine 01/07/2020 2 :25 AM CDT POCT GLUCOSE DEVICE Routine 01/06/2020 9 :22 PM CDT BLOOD CULTURE Routine 01/06/2020 8:51 PM CDT BLOOD CULTURE Routine 01/06/2020 8:51 PM CDT VANCOMYCIN LEVEL TROUGH Timed 01/06/2020 4:45 PM CDT POCT GLUCOSE DEVICE Routine 01/06/2020 4 :41 PM CDT POCT GLUCOSE DEVICE Routine 01/06/2020 2 :06 PM CDT POCT GLUCOSE DEVICE Routine 01/06/2020 1 :26 PM CDT TISSUE AEROBIC AND ANAEROBIC CULTURE AND GRAM STAIN Routine 01/06/2020 1:02 PM CDT TISSUE AEROBIC AND ANAEROBIC CULTURE AND GRAM STAIN Routine 01/06/2020 1:00 PM CDT AMPUTATION TOE 01/06/2020 12:29 PM CDT osteomylitis POCT GLUCOSE DEVICE Routine 01/06/2020 1 2:07 PM CDT POCT GLUCOSE DEVICE Routine 01/06/2020 1 1:38 AM CDT SURGICAL PATHOLOGY Routine 01/06/2020 9: 11 AM CDT Osteomyelitis ([facility] POCT GLUCOSE DEVICE Routine 01/06/2020 8 :06 AM CDT EGFR Routine 01/06/2020 3:56 AM CDT DIFFERENTIAL AUTO Routine 01/06/2020 3:5 6 AM CDT CBC WITH AUTO DIFFERENTIAL Routine 01/06/2020 3:56 AM CDT CRP (ACUTE PHASE) Routine 01/06/2020 3:5 6 AM CDT PHOSPHORUS Routine 01/06/2020 3:56 AM CDT MAGNESIUM Routine 01/06/2020 3:56 AM CDT COMPREHENSIVE METABOLIC PANEL Routine 01/06/2020 3:56 AM CDT POCT GLUCOSE DEVICE Routine 01/06/2020 2 :28 AM CDT POCT GLUCOSE DEVICE Routine 01/05/2020 9 :43 PM CDT POCT GLUCOSE DEVICE Routine 01/05/2020 4 :53 PM CDT POCT GLUCOSE DEVICE Routine 01/05/2020 1 1:42 AM CDT US ARTERIAL DOPPLER LOWER EXTREMITY BILATERAL IP Routine 01/05/2020 9:15 AM CDT POCT GLUCOSE DEVICE Routine 01/05/2020 8 :12 AM CDT POCT GLUCOSE DEVICE Routine 01/05/2020 2 :15 AM CDT EGFR Routine 01/05/2020 12:00 AM CDT DIFFERENTIAL AUTO Routine 01/05/2020 12: 00 AM CDT PROCALCITONIN Routine 01/05/2020 12:00 AM CDT CBC WITH AUTO DIFFERENTIAL Routine 01/05/2020 12:00 AM CDT APTT Routine 01/05/2020 12:00 AM CDT PROTIME-INR Routine 01/05/2020 12:00 AM CDT PHOSPHORUS Routine 01/05/2020 12:00 AM CDT MAGNESIUM Routine 01/05/2020 12:00 AM CDT COMPREHENSIVE METABOLIC PANEL Routine 01/05/2020 12:00 AM CDT COVID-19 CORONAVIRUS RNA STAT 01/04/2020 9:01 PM CDT POCT GLUCOSE DEVICE Routine 01/04/2020 8 :56 PM CDT CRP (ACUTE PHASE) Routine 01/04/2020 5:2 9 PM CDT documented in this encounter Results * (ABNORMAL) POCT glucose (01/11/2020 5:28 PM CDT) Glucose, POC 235(H) 71 - 98 mg/dL NILSA LOWE ([place]) Blood specimen (specimen) 01/11/2020 5:28 PM CDT 01/11/2020 5:28 PM CDT us Zahra Corona MD LAB POCT ORDERABLES - DE VICE Final Result NILSA LOWE ([place]) 1 [facility] [place] [address] * (ABNORMAL) Vancomycin, trough (01/11/2020 4:01 PM CDT) Vancomycin trough 20.6(H) 15.0 - 20.0 mcg/mL NILSA LOWE ([place]) Comment: Intepretive Data Therapeutic range: ??15 - 20 mcg/ml Current interpretive data was last revised on 2014 Blood specimen (specimen) 01/11/2020 4:01 PM CDT 01/11/2020 4:06 PM CDT us Mathew Mccullough MD LAB BLOOD ORDERABL ES Final Result NILSA LOWE ([place]) 1 [facility] [place] [address] * US Vein Duplex Lower Extremity Right Limited (01/11/2020 2:09 PM CDT) Anatomical Region Laterality Modality Vascular Right Ultrasound 01/11/2020 2:28 PM CDT Impressions 01/11/2020 2:30 PM CDT 1. ??No sonographic evidence of right lower extremity deep venous thrombosis. 2. ??Prominent right inguinal lymph node of indeterminate significance. Electronically signed by: Larry Lowe M.D. Narrative 01/11/2020 2:30 PM CDT EXAMINATION: US VEIN DUPLEX LOWER EXTREMITY RIGHT LIMITED ORDERING HEALTHCARE PROVIDER: ZAHRA CORONA HISTORY: Swelling, Lower Extremity, Right. ??Duration: Days ?? COMPARISON: None TECHNIQUE: Grayscale, color and spectral Doppler sonographic evaluation of the right lower extremity deep venous system from the common femoral to the popliteal vein with compression and augmentation. FINDINGS: There is no evidence of thrombosis in the interrogated deep venous system of the right lower extremity. ??Right groin lymph node measures approximately 4.6 x 1.3 cm. ??Lower extremity soft tissue swelling is present. Procedure Note Larry Lowe MD - 01/11/2020 EXAMINATION: US VEIN DUPLEX LOWER EXTREMITY RIGHT LIMITED ORDERING HEALTHCARE PROVIDER: ZAHRA CORONA HISTORY: Swelling, Lower Extremity, Right. Duration: Days COMPARISON: None TECHNIQUE: Grayscale, color and spectral Doppler sonographic evaluation of the right lower extremity deep venous system from the common femoral to the popliteal vein with compression and augmentation. FINDINGS: There is no evidence of thrombosis in the interrogated deep venous system of the right lower extremity. Right groin lymph node measures approximately 4.6 x 1.3 cm. Lower extremity soft tissue swelling is present. IMPRESSION: 1. No sonographic evidence of right lower extremity deep venous thrombosis. 2. Prominent right inguinal lymph node of indeterminate significance. Electronically signed by: Larry Lowe M.D. Zahra Corona MD [facility] US PROCEDURES Final Result * (ABNORMAL) POCT glucose (01/11/2020 11:49 AM CDT) [facility] Glucose, POC 241(H) 71 - 98 mg/dL [facility] ([place] Blood specimen (specimen) 01/11/2020 11:49 AM CDT 01/11/2020 11:49 AM CDT Zahra Corona MD LAB POCT ORDERABLES - DE VICE Final Result NILSA LOWE ([place]) 1 [facility] [place] [address] * (ABNORMAL) POCT glucose (01/11/2020 7:52 AM CDT) Glucose, POC 242(H) 71 - 98 mg/dL [facility] ([place]) Blood specimen (specimen) 01/11/2020 7:52 AM CDT 01/11/2020 7:52 AM CDT us Zahra Corona MD LAB POCT ORDERABLES - DE VICE Final Result Performing Organization Address [facility]/ZIP Co de Phone Number NILSA LOWE ([place]) 1 [facility] [place] [address] * (ABNORMAL) Ferritin (01/11/2020 5:17 AM CDT) Ferritin 403(H) 15 - 150 ng/mL [facility] ([place]) Blood specimen (specimen) 01/11/2020 5:17 AM CDT 01/11/2020 8:58 AM CDT Zahra Corona MD LAB BLOOD ORDERABLES Fin al Result NILSA LOWE ([place]) 1 [facility] [place] [address] * (ABNORMAL) Iron profile w/ IBC (01/11/2020 5:17 AM CDT) Iron 20(L) 35 - 145 mcg/dL [facility] ([place]) TIBC 144(L) 250 - 400 mcg/dL [facility] ([place]) Transferrin saturation 14(L) 20 - 50 % [facility] ([place]) Blood specimen (specimen) 01/11/2020 5:17 AM CDT 01/11/2020 8:58 AM CDT us Zahra Corona MD LAB BLOOD ORDERABLES Fin al Result Performing Organization Address City/[facility] Co de Phone Number NILSA LOWE ([place]) 1 [facility] [place] [address] * eGFR (01/11/2020 5:17 AM CDT) eGFR 65 mL/min/1.7 3 m2 NILSA LOWE ([place]) Comment: Interpretive Data Reference Interval Normal ?>/= 90 mL/min/1.73m2 Mildly decreased* ? 60 - 89 mL/min/1.73m2 Mildly to moderately decreased ?45 - 59 mL/min/1.73m2 Moderately to severely decreased ??30 - 44 mL/min/1.73m2 Severely decreased ?15 - 29 mL/min/1.73m2 Kidney Failure ?< 15 ??mL/min/1.73m2 *Relative to young adult level If -Swedish multiply value by 1.16. Estimated glomerular filtration [...] was last reviewed 2016. Blood specimen (specimen) 01/11/2020 5:17 AM CDT 01/11/2020 5:24 AM CDT us Mathew Mccullough MD LAB BLOOD ORDERABL ES Final Result NILSA LOWE ([place]) 1 [facility] [place] [address] * (ABNORMAL) Differential, auto (01/11/2020 5:17 AM CDT) Neutrophil abs 10.6(H) 1.7 - 6.5 K/cumm [facility] ([place]) Imm gran abs 0.1 0.0 - 0.1 K/cumm [facility] ([place]) Lymphocyte abs 2.0 0.8 - 3.3 K/cumm [facility] ([place]) Monocyte abs 0.8 0.2 - 0.8 K/cumm [facility] ([place]) Eosinophil abs 0.2 0.0 - 0.5 K/cumm [facility] ([place]) Basophil abs 0.0 0.0 - 0.1 K/cumm [facility] ([place]) Neutrophil pct 77.2 % [facility] ([place]) Comment: Interpretive Data Percent cell count reference ranges are not reported, since discordance with absolute values may lead to misinterpretation of CBC data. Current Interpretive Data was last revised on 2017. Imm gran pct 0.9 % [facility] ([place]) Comment: Interpretive Data Percent cell count reference ranges are not reported, since discordance with absolute values may lead to misinterpretation of CBC data. Current Interpretive Data was last revised on 2017. Lymphocyte pct 14.4 % [facility] ([place]) Comment: Interpretive Data Percent cell count reference ranges are not reported, since discordance with absolute values may lead to misinterpretation of CBC data. Current Interpretive Data was last revised on 2017. Monocyte pct 5.7 % [facility] ([place]) Comment: Interpretive Data Percent cell count reference ranges are not reported, since discordance with absolute values may lead to misinterpretation of CBC data. Current Interpretive Data was last revised on 2017. Eosinophil pct 1.5 % [facility] ([place]) Comment: Interpretive Data Percent cell count reference ranges are not reported, since discordance with absolute values may lead to misinterpretation of CBC data. Current Interpretive Data was last revised on 2017. Basophil pct 0.3 % [facility] ([place]) Comment: Interpretive Data Percent cell count reference ranges are not reported, since discordance with absolute values may lead to misinterpretation of CBC data. Current Interpretive Data was last revised on 2017. Blood specimen (specimen) 01/11/2020 5:17 AM CDT 01/11/2020 5:24 AM CDT Mathew Mccullough MD LAB BLOOD ORDERABL ES Final Result Performing Organization Address City/[facility]/ZIP Co de Phone Number [facility] ([place]) [address] [facility] [place] [address] * (ABNORMAL) CRP (acute phase) (01/11/2020 5:17 AM CDT) CRP 112.3(H) <=10.0 mg/L N[facility]SA [facility] ([place]) Blood specimen (specimen) 01/11/2020 5:17 AM CDT 01/11/2020 5:24 AM CDT Mathew Mccullough MD LAB BLOOD ORDERABL ES Final Result Performing Organization Address [facility] Co de Phone Number [facility] ([place]) [address] [facility] [place] [address] * (ABNORMAL) Comprehensive metabolic panel (01/11/2020 5:17 AM CDT) Sodium 137 135 - 145 mmol/L [facility] ([place]) Potassium, pl 4.1 3.3 - 4.9 mmol/L [facility] ([place]) Chloride 103 97 - 110 mmol/L [facility] ([place]) CO2 26 22 - 32 mmol/L [facility] ([place]) Anion gap 7 2 - 15 mmol/L [facility] ([place] BUN 11 8 - 25 mg/dL [facility] ([place]) Creatinine 0.90 0.60 - 1.10 mg/dL [facility] ([place] Glucose 247(H) 70 - 199 mg/dL [facility] ([place]) Comment: Interpretive Data Fasting glucose [...] interpretive data was last revised 2017. Calcium 8.8 8.5 - 10.3 mg/dL [facility] ([place]) Bilirubin, total <0.2 0.1 - 1.2 mg/dL [facility] ([place]) Protein, pl 6.9 6.5 - 8.5 g/dL [facility] ([place]) Albumin 2.3(L) 3.5 - 5.0 g/dL [facility] ([place]) Alk phos 208(H) 40 - 130 Units/L [facility] ([place]) ALT 17 7 - 45 Units/L [facility] ([place]) AST 22 10 - 45 Units/L [facility] ([place]) Blood specimen (specimen) 01/11/2020 5:17 AM CDT 01/11/2020 5:24 AM CDT us Mathew Mccullough MD LAB BLOOD ORDERABL ES Final Result [facility] ([place]) 1 [facility] Department [place] [address] * (ABNORMAL) CBC with auto differential (01/11/2020 5:17 AM CDT) WBC 13.8(H) 3.8 - 9.9 K/cumm [facility] ([place]) Hgb 7.5(L) 11.9 - 15.5 g/dL [facility] ([place]) Hct 23.6(L) 35.6 - 45.5 % [facility] ([place]) Plt 425(H) 150 - 400 K/cumm [facility] ([place]) MPV 9.4 9.1 - 12.3 fL [facility] ([place]) RBC 2.61(L) 3.90 - 5.20 M/cumm [facility] ([place]) MCV 90.4 81.3 - 96.4 fL [facility] ([place]) MCH 28.7 27.1 - 33.3 pg [facility] ([place]) MCHC 31.8(L) 32.3 - 35.7 g/dL [facility] ([place]) RDW CV 14.7 11.1 - 14.9 % [facility] ([place]) RDW SD 48.1 35.7 - 48.1 fL [facility] ([place]) NRBC abs 0.06(H) 0.00 - 0.01 K/cumm [facility] ([place]) Blood specimen (specimen) 01/11/2020 5:17 AM CDT 01/11/2020 5:24 AM CDT Mathew Mccullough MD LAB BLOOD ORDERABL ES Final Result [facility] ([place]) 1 [facility] [place] [address] * Magnesium (01/11/2020 5:17 AM CDT) Magnesium 2.2 1.4 - 2.5 mg/dL [facility] ([place]) Blood specimen (specimen) 01/11/2020 5:17 AM CDT 01/11/2020 5:24 AM CDT us Emile Escudero MD LAB BLOOD ORDERABLES Final Re sult [facility] ([place]) 1 [facility] [place] [address] * Phosphorus (01/11/2020 5:17 AM CDT) Phosphorus, pl 3.3 2.3 - 4.5 mg/dL [facility] ([place] Blood specimen (specimen) 01/11/2020 5:17 AM CDT 01/11/2020 5:24 AM CDT us Emile Escudero MD LAB BLOOD ORDERABLES Final Re sult NILSA [facility] ([place]) 1 [facility] [place] [address] * (ABNORMAL) POCT glucose (01/11/2020 2:23 AM CDT) Glucose, POC 246(H) 71 - 98 mg/dL N[facility]SA [facility] ([place]) Blood specimen (specimen) 01/11/2020 2:23 AM CDT 01/11/2020 2:23 AM CDT us Zahra Corona MD LAB POCT ORDERABLES - DE VICE Final Result Performing Organization Address [facility]/ZIP Co de Phone Number NILSA [facility] ([place]) [address] [facility] [place] [address] * (ABNORMAL) POCT glucose (01/10/2020 9:12 PM CDT) Glucose, POC 276(H) 71 - 98 mg/dL [facility] ([place]) Blood specimen (specimen) 01/10/2020 9:12 PM CDT 01/10/2020 9:12 PM CDT us Zahra Corona MD LAB POCT ORDERABLES - DE VICE Final Result Performing Organization Address City/[facility]/ZIP Co de Phone Number N[facility]SA [facility] ([place]) [address] [facility] [place] [address] * (ABNORMAL) POCT glucose (01/10/2020 11:53 AM CDT) Glucose, POC 174(H) 71 - 98 mg/dL [facility] ([place]) Blood specimen (specimen) 01/10/2020 11:53 AM CDT 01/10/2020 11:53 AM CDT Zahra Corona MD LAB POCT ORDERABLES - DE VICE Final Result Performing Organization Address [facility] Co de Phone Number [facility] ([place]) [address] [place] [address] * POCT glucose (01/10/2020 7:52 AM CDT) Glucose, POC 81 71 - 98 mg/dL [facility] ([place]) Blood specimen (specimen) 01/10/2020 7:52 AM CDT 01/10/2020 7:52 AM CDT Zahra Corona MD LAB POCT ORDERABLES - DE VICE Final Result Performing Organization Address [facility] Co de Phone Number [facility] ([place]) [address] [place] [address] * (ABNORMAL) CRP (acute phase) (01/10/2020 3:49 AM CDT) CRP 119.1(H) <=10.0 mg/L [facility] ([place]) Blood specimen (specimen) 01/10/2020 3:49 AM CDT 01/10/2020 3:51 AM CDT Mathew Mccullough MD LAB BLOOD ORDERABL ES Final Result Performing Organization Address [facility] Co de Phone Number [facility] ([place]) [address] [facility] [place] [address] * Magnesium (01/10/2020 3:49 AM CDT) Magnesium 2.2 1.4 - 2.5 mg/dL [facility] ([place]) Blood specimen (specimen) 01/10/2020 3:49 AM CDT 01/10/2020 3:51 AM CDT us Emile Escudero MD LAB BLOOD ORDERABLES Final Re sult Performing Organization Address City/[facility]/ZIP Co de Phone Number NILSA [facility] ([place]) [address] [facility] [place] [address] * Phosphorus (01/10/2020 3:49 AM CDT) Pathologist [facility] Phosphorus, pl 3.4 2.3 - 4.5 mg/dL [facility]SA [facility] ([place]) Blood specimen (specimen) 01/10/2020 3:49 AM CDT 01/10/2020 3:51 AM CDT Emile Escudero MD LAB BLOOD ORDERABLES Final Re sult Performing Organization Address [facility] Co de Phone Number NILSA [facility] ([place]) [address] [facility] [place] [address] * (ABNORMAL) Vancomycin, trough (01/10/2020 3:49 AM CDT) [facility] Vancomycin trough 13.4(L) 15.0 - 20.0 mcg/mL NILSA [facility] ([place]) Comment: Intepretive Data Therapeutic range: ??15 - 20 mcg/ml Current interpretive data was last revised on 2014 Blood specimen (specimen) 01/10/2020 3:49 AM CDT 01/10/2020 3:51 AM CDT Mathew Mccullough MD LAB BLOOD ORDERABL ES Final Result Performing Organization Address [facility]/ZIP Co de Phone Number NILSA [facility] ([place]) [address] [facility] [place] [address] * (ABNORMAL) POCT glucose (01/10/2020 2:13 AM CDT) [facility] Glucose, POC 122(H) 71 - 98 mg/dL [facility] ([place]) Blood specimen (specimen) 01/10/2020 2:13 AM CDT 01/10/2020 2:13 AM CDT Mathew Mccullough MD LAB POCT ORDERABLE S - DEVICE Final Result Performing Organization Address City/[facility]/ZIP Co de Phone Number [facility] ([place]) [address] [facility] [place] [address] * (ABNORMAL) POCT glucose (01/09/2020 8:23 PM CDT) Glucose, POC 251(H) 71 - 98 mg/dL [facility] ([place]) Blood specimen (specimen) 01/09/2020 8:23 PM CDT 01/09/2020 8:23 PM CDT Mathew Mccullough MD LAB POCT ORDERABLE S - DEVICE Final Result Performing Organization Address [facility] Co de Phone Number [facility] ([place]) [address] [facility] [place] [address] * (ABNORMAL) POCT glucose (01/09/2020 4:50 PM CDT) Glucose, POC 170(H) 71 - 98 mg/dL [facility] ([place]) Blood specimen (specimen) 01/09/2020 4:50 PM CDT 01/09/2020 4:50 PM CDT Mathew Mccullough MD LAB POCT ORDERABLE S - DEVICE Final Result Performing Organization Address City/[facility] Co de Phone Number [facility] ([place]) [address] [facility] [place] [address] * (ABNORMAL) Protime-INR (01/09/2020 3:29 PM CDT) PT 15.1(H) 9.5 - 13.0 sec [facility] ([place]) INR 1.3(H) 0.9 - 1.2 [facility] ([place]) Comment: Interpretive data Oral anticoagulant therapeutic ranges: Venous thromboembolism prophylaxis or treatment: 2.0-3.0 CARDIOLOGY Standard range: 2.0-3.0 High-intensity range: 2.5-3.5 Refer to indication-specific guidelines for appropriate target ranges for prosthetic heart valve replacement. Current interpretive data was last revised on 2019. Blood specimen (specimen) 01/09/2020 3:29 PM CDT 01/09/2020 3:37 PM CDT Erna Anthony MD LAB BLOOD ORDERABLES Final Result Performing Organization Address [facility] Co de Phone Number NISLA [facility] ([place]) [address] [place] [address] * aPTT (01/09/2020 3:29 PM CDT) aPTT 33 25 - 37 sec [facility]SA [facility] ([place]) Comment: Interpretive data Heparin therapeutic range: 60-94 seconds Range based on correlation with therapeutic heparin activity range of 0.3-0.7 units/ml. Current interpretive data was last revised on 2019. Blood specimen (specimen) 01/09/2020 3:29 PM CDT 01/09/2020 3:37 PM CDT Erna Anthony MD LAB BLOOD ORDERABLES Final Result Performing Organization Address [facility] Co de Phone Number NILSA [facility] ([place]) [address] [place] [address] * TRANSTHORACIC ECHO (TTE) COMPLETE W DOPPLER/CF WO CONTRAST (01/09/2020 1:42 PM CDT) Anatomical Region Laterality Modality Ultrasound 01/09/2020 1:05 PM CDT Narrative 01/09/2020 3:42 PM CDT [address] [address] Echocardiogram Report Patient Name: SIXTO CHAKRABORTY : 1950 Study Date: 01/09/2020 13:05:18 Gender: F Tech: Location: [id number] Ref.Provider: MATHEW MCCULLOUGH Height(Cm): BSA: ??Weight(Kg): Quality: Good Order Provider: EMILE ESCUDERO Procedures: Echocardiographic Report: Transthoracic echocardiogram with complete 2D, M-Mode, and color Doppler examination. Indications: Congestive Heart Failure. Measurements: 2D/M Mode Doppler Measurement Value Normal Range Measurement Value Normal Range EF Mod 4C 66.9 [ 55.0 - 70.0 ] percent CORNELL Vmax 2.39 [ 2.00 - 4.00 ] cm2 LVIDd 2D 3.00 [ 3.90 - 5.30 ] cm AV Mean PG 8 [ 2 - 4 ] mmHg LVIDs 2D 2.12 [ 2.30 - 3.90 ] cm AV Peak Lalit 1.90 [ 1.00 - 1.70 ] m/s LVPWd 2D 1.09 [ 0.60 - 1.00 ] cm AV VTI 41.26 cm IVSd 2D 1.15 [ 0.60 - 0.90 ] cm LVOT Diam 2.10 [ 1.70 - 2.10 ] cm LA Dimension 2D 4.03 [ 2.70 - 3.80 ] cm LVOT Peak Lalit 1.31 [ 0.70 - 1.10 ] m/s AoR Diam MM 2.71 [ 2.60 - 3.70 ] cm LVOT VTI 23.41 [ 20.00 - 30.00 ] cm ACS MM 1.94 cm MV E Peak Lalit 1.17 [ 0.60 - 1.30 ] m/s MV A Peak Lalit 1.07 [ 1.00 - 1.20 ] m/s MV Mean PG 3 [ <= 5 ] mmHg MV PHT 49 [ 20 - 100 ] msec MVA 2.20 MV Decel Time 170 [ 104 - 258 ] msec PV Peak Lalit 1.35 [ 0.40 - 0.80 ] m/s TR Peak Lalit 2.31 [ 1.00 - 2.80 ] m/s TR Peak PG 21 mmHg RVSP 26.00 [ 10.00 - 36.00 ] mmHg E' 0.08 E/E' 14.44 PA Pressure 5.00 [ 10.00 - 36.00 ] mmHg Findings: Atrial Septum: Normal atrial septum. Left Ventricle: Normal left ventricular systolic function with no focal wall motion abnormalities. Normal left ventricular size. Normal left ventricular diastolic function. Ejection fraction is visually estimated at 67 %. Left Atrium: The left atrium is normal in size. Normal left atrial pressure based on pulmonary vein inflow. Right Ventricle: Normal right ventricular size. Normal right ventricular systolic function. Right Atrium: The right atrium is normal in size. Aortic Valve: Normal structure of the aortic valve. No evidence of hemodynamically significant aortic stenosis by Doppler. No aortic regurgitation. Mitral Valve: Normal structure of the mitral valve. Trivial regurgitation of the mitral valve. Pulmonic Valve: Pulmonic valve not well visualized. No evidence of pulmonic regurgitation. Tricuspid Valve: Right Ventricular Systolic Pressure could not be estimated due to inadequate visualization of TR jet. Pericardium: Normal pericardium with no significant pericardial effusion. Aorta: Normal aortic root. IVC: Normal size and no respiratory collapse consistent with elevated right atrial pressure (5-10 mmHg). Conclusions: Normal left ventricular systolic function with no focal wall motion abnormalities. Normal left ventricular size. Normal left ventricular diastolic function. Ejection fraction is visually estimated at 67 %. The left atrium is normal in size. Normal left atrial pressure based on pulmonary vein inflow. The right atrium is normal in size. Right Ventricular Systolic Pressure could not be estimated due to inadequate visualization of TR jet. Electronically Signed By: Dr Adryan Richmond 2020-01-09 15:42:03 CDT Procedure Note Adryan Richmond, DO - 01/09/[address] [address] Echocardiogram Report Patient Name: SIXTO CHAKRABORTY : 1950 Study Date: 01/09/2020 13:05:18 Gender: F Tech: AA Location: [id number] Ref.Provider: MATHEW MCCULLOUGH Height(Cm): BSA: Weight(Kg): Quality: Good Order Provider: EMILE ESCUDERO Procedures: Echocardiographic Report: Transthoracic echocardiogram with complete 2D, M-Mode, and color Dopplerexamination. Indications: Congestive Heart Failure. Measurements: 2D/M Mode Doppler Measurement Value Normal Range Measurement Value Normal Range EF Mod 4C 66.9 [ 55.0 - 70.0 ] percent CORNELL Vmax 2.39 [ 2.00 - 4.00 ] cm2 LVIDd 2D 3.00 [ 3.90 - 5.30 ] cm AV Mean PG 8 [ 2 - 4 ] mmHg LVIDs 2D 2.12 [ 2.30 - 3.90 ] cm AV Peak Lalit 1.90 [ 1.00 - 1.70 ] m/s LVPWd 2D 1.09 [ 0.60 - 1.00 ] cm AV VTI 41.26 cm IVSd 2D 1.15 [ 0.60 - 0.90 ] cm LVOT Diam 2.10 [ 1.70 - 2.10 ] cm LA Dimension 2D 4.03 [ 2.70 - 3.80 ] cm LVOT Peak Lalit 1.31 [ 0.70 - 1.10 ]m/s AoR Diam MM 2.71 [ 2.60 - 3.70 ] cm LVOT VTI 23.41 [ 20.00 - 30.00 ] cm ACS MM 1.94 cm MV E Peak Lalit 1.17 [ 0.60 - 1.30 ] m/s MV A Peak Lalit 1.07 [ 1.00 - 1.20 ] m/s MV Mean PG 3 [ <= 5 ] mmHg MV PHT 49 [ 20 - 100 ] msec MVA 2.20 MV Decel Time 170 [ 104 - 258 ] msec PV Peak Lalit 1.35 [ 0.40 - 0.80 ] m/s TR Peak Lalit 2.31 [ 1.00 - 2.80 ] m/s TR Peak PG 21 mmHg RVSP 26.00 [ 10.00 - 36.00 ] mmHg E' 0.08 E/E' 14.44 PA Pressure 5.00 [ 10.00 - 36.00 ] mmHg Findings: Atrial Septum: Normal atrial septum. Left Ventricle: Normal left ventricular systolic function with no focal wall motionabnormalities. Normal left ventricular size. Normal left ventricular diastolic function.Ejection fraction is visually estimated at 67 %. Left Atrium: The left atrium is normal in size. Normal left atrial pressure based onpulmonary vein inflow. Right Ventricle: Normal right ventricular size. Normal right ventricular systolicfunction. Right Atrium: The right atrium is normal in size. Aortic Valve: Normal structure of the aortic valve. No evidence of hemodynamicallysignificant aortic stenosis by Doppler. No aortic regurgitation. Mitral Valve: Normal structure of the mitral valve. Trivial regurgitation of the mitralvalve. Pulmonic Valve: Pulmonic valve not well visualized. No evidence of pulmonicregurgitation. Tricuspid Valve: Right Ventricular Systolic Pressure could not be estimated due toinadequate visualization of TR jet. Pericardium: Normal pericardium with no significant pericardial effusion. Aorta: Normal aortic root. IVC: Normal size and no respiratory collapse consistent with elevated rightatrial pressure (5-10 mmHg). Conclusions: Normal left ventricular systolic function with no focal wall motionabnormalities. Normal left ventricular size. Normal left ventricular diastolic function.Ejection fraction is visually estimated at 67 %. The left atrium is normal in size. Normal left atrial pressure based onpulmonary vein inflow. The right atrium is normal in size. Right Ventricular Systolic Pressure could not be estimated due toinadequate visualization of TR jet. Electronically Signed By: Dr Adryan Richmond 2020-01-09 15:42:03 CDT Emile Escudero MD CV ECHO PROCEDURES Final Resu lt * (ABNORMAL) POCT glucose (01/09/2020 11:32 AM CDT) Glucose, POC 183(H) 71 - 98 mg/dL [facility] ([place]) Blood specimen (specimen) 01/09/2020 11:32 AM CDT 01/09/2020 11:32 AM CDT Mathew Mccullough MD LAB POCT ORDERABLE S - DEVICE Final Result Performing Organization Address [facility]/ZIP Co de Phone Number NILSA [facility] ([place]) 1 [facility] Department [place] [address] * (ABNORMAL) POCT glucose (01/09/2020 7:58 AM CDT) Glucose, POC 131(H) 71 - 98 mg/dL [facility] ([place]) Blood specimen (specimen) 01/09/2020 7:58 AM CDT 01/09/2020 7:58 AM CDT Mathew Mccullough MD LAB POCT ORDERABLE S - DEVICE Final Result [facility]SA [facility] ([place]) 1 [facility] Department [place] [address] * eGFR (01/09/2020 4:15 AM CDT) eGFR 72 mL/min/1.7 3 m2 [facility]SA [facility] ([place]) Comment: Interpretive Data Reference Interval Normal ?>/= 90 mL/min/1.73m2 Mildly decreased* ? 60 - 89 mL/min/1.73m2 Mildly to moderately decreased ?45 - 59 mL/min/1.73m2 Moderately to severely decreased ??30 - 44 mL/min/1.73m2 Severely decreased ?15 - 29 mL/min/1.73m2 Kidney Failure ?< 15 ??mL/min/1.73m2 *Relative to young adult level If -Swedish multiply value by 1.16. Estimated glomerular filtration [...] was last reviewed 2016. Blood specimen (specimen) 01/09/2020 4:15 AM CDT 01/09/2020 4:47 AM CDT us Emile Escudero MD LAB BLOOD ORDERABLES Final Re sult NILSA [facility] ([place]) 1 [facility] Department [place] [address] * (ABNORMAL) Differential, auto (01/09/2020 4:15 AM CDT) Neutrophil abs 9.2(H) 1.7 - 6.5 K/cumm [facility] ([place]) Imm gran abs 0.1 0.0 - 0.1 K/cumm [facility] ([place]) Lymphocyte abs 2.5 0.8 - 3.3 K/cumm [facility] ([place]) Monocyte abs 0.9(H) 0.2 - 0.8 K/cumm [facility] ([place]) Eosinophil abs 0.2 0.0 - 0.5 K/cumm [facility] ([place]) Basophil abs 0.0 0.0 - 0.1 K/cumm [facility] ([place]) Neutrophil pct 71.3 % [facility] ([place]) Comment: Interpretive Data Percent cell count reference ranges are not reported, since discordance with absolute values may lead to misinterpretation of CBC data. Current Interpretive Data was last revised on 2017. Imm gran pct 1.0 % [facility] ([place]) Comment: Interpretive Data Percent cell count reference ranges are not reported, since discordance with absolute values may lead to misinterpretation of CBC data. Current Interpretive Data was last revised on 2017. Lymphocyte pct 19.0 % [facility] ([place]) Comment: Interpretive Data Percent cell count reference ranges are not reported, since discordance with absolute values may lead to misinterpretation of CBC data. Current Interpretive Data was last revised on 2017. Monocyte pct 7.1 % [facility] ([place]) Comment: Interpretive Data Percent cell count reference ranges are not reported, since discordance with absolute values may lead to misinterpretation of CBC data. Current Interpretive Data was last revised on 2017. Eosinophil pct 1.3 % [facility] ([place]) Comment: Interpretive Data Percent cell count reference ranges are not reported, since discordance with absolute values may lead to misinterpretation of CBC data. Current Interpretive Data was last revised on 2017. Basophil pct 0.3 % [facility] ([place]) Comment: Interpretive Data Percent cell count reference ranges are not reported, since discordance with absolute values may lead to misinterpretation of CBC data. Current Interpretive Data was last revised on 2017. Blood specimen (specimen) 01/09/2020 4:15 AM CDT 01/09/2020 4:47 AM CDT Emile Escudero MD LAB BLOOD ORDERABLES Final Re sult Performing Organization Address [facility] Co de Phone Number NILSA L[facility] ([place]) [address] [facility] [place] [address] * (ABNORMAL) CRP (acute phase) (01/09/2020 4:15 AM CDT) CRP 172.5(H) <=10.0 mg/L NILSA [facility] ([place]) Blood specimen (specimen) 01/09/2020 4:15 AM CDT 01/09/2020 4:47 AM CDT Mathew Mccullough MD LAB BLOOD ORDERABL ES Final Result Performing Organization Address [facility] Co de Phone Number [facility] ([place]) [address] [facility] [place] [address] * Magnesium (01/09/2020 4:15 AM CDT) Magnesium 2.1 1.4 - 2.5 mg/dL [facility] ([place]) Blood specimen (specimen) 01/09/2020 4:15 AM CDT 01/09/2020 4:47 AM CDT Emile Escudero MD LAB BLOOD ORDERABLES Final Re sult Performing Organization Address [facility] Co de Phone Number [facility] ([place]) 1 [facility] [place] [address] * Phosphorus (01/09/2020 4:15 AM CDT) Phosphorus, pl 3.0 2.3 - 4.5 mg/dL [facility] ([place]) Blood specimen (specimen) 01/09/2020 4:15 AM CDT 01/09/2020 4:47 AM CDT Emile Escudero MD LAB BLOOD ORDERABLES Final Re sult [facility] ([place]) 1 [facility] Department [place] [address] * (ABNORMAL) Comprehensive metabolic panel (01/09/2020 4:15 AM CDT) Sodium 139 135 - 145 mmol/L [facility] ([place]) Potassium, pl 4.1 3.3 - 4.9 mmol/L [facility] ([place]) Chloride 105 97 - 110 mmol/L [facility] ([place]) CO2 26 22 - 32 mmol/L [facility] ([place]) Anion gap 8 2 - 15 mmol/L [facility] ([place]) BUN 11 8 - 25 mg/dL [facility] ([place]) Creatinine 0.83 0.60 - 1.10 mg/dL [facility] ([place]) Glucose 162 70 - 199 mg/dL [facility] ([place]) [...] 2017. Calcium 8.7 8.5 - 10.3 mg/dL [facility] ([place]) Bilirubin, total <0.2 0.1 - 1.2 mg/dL [facility] ([place]) Protein, pl 6.4(L) 6.5 - 8.5 g/dL [facility] ([place]) Albumin 2.1(L) 3.5 - 5.0 g/dL [facility] ([place]) Alk phos 176(H) 40 - 130 Units/L [facility] ([place]) ALT 21 7 - 45 Units/L [facility] ([place]) AST 33 10 - 45 Units/L [facility] ([place]) Blood specimen (specimen) 01/09/2020 4:15 AM CDT 01/09/2020 4:47 AM CDT us Emile Escudero MD LAB BLOOD ORDERABLES Final Re sult [facility] ([place]) 1 [facility] [employer] [address] * (ABNORMAL) CBC with auto differential (01/09/2020 4:15 AM CDT) WBC 12.9(H) 3.8 - 9.9 K/cumm [facility] ([place]) Hgb 7.9(L) 11.9 - 15.5 g/dL [facility] ([place]) Hct 24.6(L) 35.6 - 45.5 % [facility] ([place]) Plt 400 150 - 400 K/cumm [facility] ([place]) MPV 9.6 9.1 - 12.3 fL [facility] ([place]) RBC 2.71(L) 3.90 - 5.20 M/cumm [facility] ([place]) MCV 90.8 81.3 - 96.4 fL [facility] ([place]) MCH 29.2 27.1 - 33.3 pg [facility] ([place]) MCHC 32.1(L) 32.3 - 35.7 g/dL [facility] ([place]) RDW CV 14.2 11.1 - 14.9 % [facility] ([place]) RDW SD 46.2 35.7 - 48.1 fL [facility] ([place]) NRBC abs 0.14(H) 0.00 - 0.01 K/cumm [facility] ([place]) Blood specimen (specimen) 01/09/2020 4:15 AM CDT 01/09/2020 4:47 AM CDT us Emile Escudero MD LAB BLOOD ORDERABLES Final Re sult [facility] ([place]) 1 [facility] [place] [address] * (ABNORMAL) POCT glucose (01/09/2020 2:55 AM CDT) Glucose, POC 199(H) 71 - 98 mg/dL [facility] ([place]) Blood specimen (specimen) 01/09/2020 2:55 AM CDT 01/09/2020 2:55 AM CDT Mathew Mccullough MD LAB POCT ORDERABLE S - DEVICE Final Result [facility] ([place]) 1 [facility] [place] [address] * (ABNORMAL) POCT glucose (01/08/2020 8:32 PM CDT) Glucose, POC 262(H) 71 - 98 mg/dL [facility] Blood specimen (specimen) 01/08/2020 8:32 PM CDT 01/08/2020 8:32 PM CDT Mathew Mccullough MD LAB POCT ORDERABLE S - DEVICE Final Result Performing Organization Address City/[facility]/ZIP Co de Phone Number NILSA [facility] ([place]) 1 [facility] [place] [address] * (ABNORMAL) POCT glucose (01/08/2020 4:48 PM CDT) Glucose, POC 219(H) 71 - 98 mg/dL [facility] Blood specimen (specimen) 01/08/2020 4:48 PM CDT 01/08/2020 4:48 PM CDT Mathew Mccullough MD LAB POCT ORDERABLE S - DEVICE Final Result [facility] ([place]) 1 [facility] [place] [address] * (ABNORMAL) Vancomycin, trough (01/08/2020 3:50 PM CDT) Vancomycin trough 6.5(L) 15.0 - 20.0 mcg/mL NILSA L[facility] ([place]) Comment: Intepretive Data Therapeutic range: ??15 - 20 mcg/ml Current interpretive data was last revised on 2014 Blood specimen (specimen) 01/08/2020 3:50 PM CDT 01/08/2020 4:01 PM CDT Mathew Mccullough MD LAB BLOOD ORDERABL ES Final Result Performing Organization Address City/[facility]/ZIP Co de Phone Number NILSA LOEW ([place]) 1 [facility] [place] [address] * (ABNORMAL) POCT glucose (01/08/2020 11:53 AM CDT) Glucose, POC 178(H) 71 - 98 mg/dL NILSA L[facility] ([place]) Blood specimen (specimen) 01/08/2020 11:53 AM CDT 01/08/2020 11:53 AM CDT Mathew Mccullough MD LAB POCT ORDERABLE S - DEVICE Final Result Performing Organization Address [facility] Co de Phone Number NILSA LOWE ([place]) 1 [facility] [place] [address] * (ABNORMAL) POCT glucose (01/08/2020 8:00 AM CDT) Glucose, POC 172(H) 71 - 98 mg/dL NILSA LOWE ([place]) Blood specimen (specimen) 01/08/2020 8:00 AM CDT 01/08/2020 8:00 AM CDT us Mathew Mccullough MD LAB POCT ORDERABLE S - DEVICE Final Result Performing Organization Address City/[facility]/ZIP Co de Phone Number NILSA LOWE ([place]) [address] Department [place] [address] * eGFR (01/08/2020 3:25 AM CDT) eGFR 59 mL/min/1.7 3 m2 NILSA LOWE ([place]) Comment: Interpretive Data Reference Interval Normal ?>/= 90 mL/min/1.73m2 Mildly decreased* ? 60 - 89 mL/min/1.73m2 Mildly to moderately decreased ?45 - 59 mL/min/1.73m2 Moderately to severely decreased ??30 - 44 mL/min/1.73m2 Severely decreased ?15 - 29 mL/min/1.73m2 Kidney Failure ?< 15 ??mL/min/1.73m2 *Relative to young adult level If -Swedish multiply value by 1.16. Estimated glomerular filtration [...] was last reviewed 2016. Blood specimen (specimen) 01/08/2020 3:25 AM CDT 01/08/2020 3:44 AM CDT us Emile Escudero MD LAB BLOOD ORDERABLES Final Re sult NILSA CHRISSY ([place]) 1 [facility] Department [place] [address] * (ABNORMAL) Differential, auto (01/08/2020 3:25 AM CDT) Pathologist [facility] Neutrophil abs 11.7(H) 1.7 - 6.5 K/cumm [facility] ([place]) Imm gran abs 0.2(H) 0.0 - 0.1 K/cumm [facility] ([place]) Lymphocyte abs 2.3 0.8 - 3.3 K/cumm [facility] ([place]) Monocyte abs 1.3(H) 0.2 - 0.8 K/cumm [facility] ([place]) Eosinophil abs 0.2 0.0 - 0.5 K/cumm [facility] ([place]) Basophil abs 0.1 0.0 - 0.1 K/cumm [facility] ([place]) Neutrophil pct 74.4 % [facility] ([place]) Comment: Interpretive Data Percent cell count reference ranges are not reported, since discordance with absolute values may lead to misinterpretation of CBC data. Current Interpretive Data was last revised on 2017. Imm gran pct 1.3 % [facility] ([place]) Comment: Interpretive Data Percent cell count reference ranges are not reported, since discordance with absolute values may lead to misinterpretation of CBC data. Current Interpretive Data was last revised on 2017. Lymphocyte pct 14.7 % [facility] ([place]) Comment: Interpretive Data Percent cell count reference ranges are not reported, since discordance with absolute values may lead to misinterpretation of CBC data. Current Interpretive Data was last revised on 2017. Monocyte pct 8.1 % [facility] ([place]) Comment: Interpretive Data Percent cell count reference ranges are not reported, since discordance with absolute values may lead to misinterpretation of CBC data. Current Interpretive Data was last revised on 2017. Eosinophil pct 1.2 % [facility] ([place]) Comment: Interpretive Data Percent cell count reference ranges are not reported, since discordance with absolute values may lead to misinterpretation of CBC data. Current Interpretive Data was last revised on 2017. Basophil pct 0.3 % [facility] ([place]) Comment: Interpretive Data Percent cell count reference ranges are not reported, since discordance with absolute values may lead to misinterpretation of CBC data. Current Interpretive Data was last revised on 2017. Blood specimen (specimen) 01/08/2020 3:25 AM CDT 01/08/2020 3:44 AM CDT Emile Escudero MD LAB BLOOD ORDERABLES Final Re sult Performing Organization Address [facility] Co de Phone Number NILSA LOWE ([place]) 1 [facility] [place] [address] * (ABNORMAL) CRP (acute phase) (01/08/2020 3:25 AM CDT) CRP 227.2(H) <=10.0 mg/L NILSA Crabtree ([place]) Blood specimen (specimen) 01/08/2020 3:25 AM CDT 01/08/2020 3:44 AM CDT Mathew Mccullough MD LAB BLOOD ORDERABL ES Final Result Performing Organization Address [facility] de Phone Number NILSA [facility] ([place]) 1 [facility] [place] [address] * Magnesium (01/08/2020 3:25 AM CDT) Magnesium 2.2 1.4 - 2.5 mg/dL [facility] ([place]) Blood specimen (specimen) 01/08/2020 3:25 AM CDT 01/08/2020 3:44 AM CDT Emile Escudero MD LAB BLOOD ORDERABLES Final Re sult Performing Organization Address [facility] Co de Phone Number NILSA [facility] ([place]) 1 [facility] [place] [address] * Phosphorus (01/08/2020 3:25 AM CDT) Phosphorus, pl 3.2 2.3 - 4.5 mg/dL [facility] ([place]) Blood specimen (specimen) 01/08/2020 3:25 AM CDT 01/08/2020 3:44 AM CDT Emile Escudero MD LAB BLOOD ORDERABLES Final Re sult [facility] ([place]) 1 [facility] Department [place] [address] * (ABNORMAL) Comprehensive metabolic panel (01/08/2020 3:25 AM CDT) Sodium 139 135 - 145 mmol/L [facility] ([place]) Potassium, pl 4.0 3.3 - 4.9 mmol/L [facility] ([place]) Chloride 105 97 - 110 mmol/L [facility] ([place]) CO2 27 22 - 32 mmol/L [facility] ([place]) Anion gap 7 2 - 15 mmol/L [facility] ([place]) BUN 14 8 - 25 mg/dL [facility] ([place]) Creatinine 0.98 0.60 - 1.10 mg/dL [facility] ([place]) Glucose 222(H) 70 - 199 mg/dL [facility] ([place]) [...] interpretive data was last revised 2017. Calcium 8.6 8.5 - 10.3 mg/dL [facility] ([place]) Bilirubin, total <0.2 0.1 - 1.2 mg/dL [facility] ([place]) Protein, pl 6.5 6.5 - 8.5 g/dL [facility] ([place]) Albumin 2.4(L) 3.5 - 5.0 g/dL [facility] ([place]) Alk phos 166(H) 40 - 130 Units/L [facility] ([place]) ALT 23 7 - 45 Units/L [facility] ([place]) AST 38 10 - 45 Units/L [facility] ([place]) Blood specimen (specimen) 01/08/2020 3:25 AM CDT 01/08/2020 3:44 AM CDT us Emile Escudero MD LAB BLOOD ORDERABLES Final Re sult [facility] ([place]) 1 [facility] Department [place] [address] * (ABNORMAL) CBC with auto differential (01/08/2020 3:25 AM CDT) WBC 15.7(H) 3.8 - 9.9 K/cumm [facility] ([place]) Hgb 7.8(L) 11.9 - 15.5 g/dL [facility] ([place]) Hct 24.0(L) 35.6 - 45.5 % [facility] ([place]) Plt 412(H) 150 - 400 K/cumm [facility] ([place]) MPV 9.7 9.1 - 12.3 fL [facility] ([place]) RBC 2.65(L) 3.90 - 5.20 M/cumm [facility] ([place]) MCV 90.6 81.3 - 96.4 fL [facility] ([place]) MCH 29.4 27.1 - 33.3 pg [facility] ([place]) MCHC 32.5 32.3 - 35.7 g/dL [facility] ([place]) RDW CV 13.9 11.1 - 14.9 % [facility] ([place]) RDW SD 45.8 35.7 - 48.1 fL [facility] ([place]) NRBC abs 0.07(H) 0.00 - 0.01 K/cumm [facility] ([place]) Blood specimen (specimen) 01/08/2020 3:25 AM CDT 01/08/2020 3:44 AM CDT us Emile Escudero MD LAB BLOOD ORDERABLES Final Re sult [facility] ([place]) 1 [facility] [place] [address] * (ABNORMAL) POCT glucose (01/08/2020 2:22 AM CDT) Glucose, POC 261(H) 71 - 98 mg/dL [facility] ([place]) Blood specimen (specimen) 01/08/2020 2:22 AM CDT 01/08/2020 2:22 AM CDT Mathew Mccullough MD LAB POCT ORDERABLE S - DEVICE Final Result NILSA LOWE ([place]) 1 [facility] [place] [address] * (ABNORMAL) POCT glucose (01/07/2020 8:48 PM CDT) Glucose, POC 320(H) 71 - 98 mg/dL [facility] ([place]) Blood specimen (specimen) 01/07/2020 8:48 PM CDT 01/07/2020 8:48 PM CDT Mathew Mccullough MD LAB POCT ORDERABLE S - DEVICE Final Result Performing Organization Address [facility] Co de Phone Number NILSA LOWE ([place]) 1 [facility] [place] [address] * (ABNORMAL) POCT glucose (01/07/2020 4:46 PM CDT) Glucose, POC 288(H) 71 - 98 mg/dL [facility] ([place]) Blood specimen (specimen) 01/07/2020 4:46 PM CDT 01/07/2020 4:46 PM CDT Mathew Mccullough MD LAB POCT ORDERABLE S - DEVICE Final Result NILSA L[facility]E ([place]) 1 [facility] [place] [address] * (ABNORMAL) POCT glucose (01/07/2020 11:55 AM CDT) Glucose, POC 274(H) 71 - 98 mg/dL [facility] ([place]) Blood specimen (specimen) 01/07/2020 11:55 AM CDT 01/07/2020 11:55 AM CDT Mathew Mccullough MD LAB POCT ORDERABLE S - DEVICE Final Result NILSA L[facility]E ([place]) 1 [facility] [place] [address] * (ABNORMAL) POCT glucose (01/07/2020 11:22 AM CDT) Glucose, POC 344(H) 71 - 98 mg/dL NILSA [facility] ([place]) Blood specimen (specimen) 01/07/2020 11:22 AM CDT 01/07/2020 11:22 AM CDT Mathew Mccullough MD LAB POCT ORDERABLE S - DEVICE Final Result Performing Organization Address [facility] Co de Phone Number NILSA LOWE ([place]) 1 [facility] [place] [address] * (ABNORMAL) POCT glucose (01/07/2020 7:54 AM CDT) Glucose, POC 303(H) 71 - 98 mg/dL [facility] ([place]) Blood specimen (specimen) 01/07/2020 7:54 AM CDT 01/07/2020 7:54 AM CDT Mathew Mccullough MD LAB POCT ORDERABLE S - DEVICE Final Result Performing Organization Address City/[facility]/ZIP Co de Phone Number NILSA LOWE ([place]) 1 [facility] [place] [address] * eGFR (01/07/2020 3:32 AM CDT) eGFR 65 mL/min/1.7 3 m2 [facility] ([place]) Comment: Interpretive Data Reference Interval Normal ?>/= 90 mL/min/1.73m2 Mildly decreased* ? 60 - 89 mL/min/1.73m2 Mildly to moderately decreased ?45 - 59 mL/min/1.73m2 Moderately to severely decreased ??30 - 44 mL/min/1.73m2 Severely decreased ?15 - 29 mL/min/1.73m2 Kidney Failure ?< 15 ??mL/min/1.73m2 *Relative to young adult level If -Swedish multiply value by 1.16. Estimated glomerular filtration [...] was last reviewed 2016. Blood specimen (specimen) 01/07/2020 3:32 AM CDT 01/07/2020 3:50 AM CDT us Emile Escudero MD LAB BLOOD ORDERABLES Final Re sult [facility] ([place]) 1 [facility] Department [place] [address] * (ABNORMAL) Differential, auto (01/07/2020 3:32 AM CDT) Neutrophil abs 13.0(H) 1.7 - 6.5 K/cumm [facility] ([place]) Imm gran abs 0.1 0.0 - 0.1 K/cumm [facility] ([place]) Lymphocyte abs 1.6 0.8 - 3.3 K/cumm [facility] ([place]) Monocyte abs 1.5(H) 0.2 - 0.8 K/cumm [facility] ([place]) Eosinophil abs 0.1 0.0 - 0.5 K/cumm [facility] ([place]) Basophil abs 0.1 0.0 - 0.1 K/cumm [facility] ([place]) Neutrophil pct 79.7 % [facility] ([place]) Comment: Interpretive Data Percent cell count reference ranges are not reported, since discordance with absolute values may lead to misinterpretation of CBC data. Current Interpretive Data was last revised on 2017. Imm gran pct 0.9 % [facility] ([place]) Comment: Interpretive Data Percent cell count reference ranges are not reported, since discordance with absolute values may lead to misinterpretation of CBC data. Current Interpretive Data was last revised on 2017. Lymphocyte pct 9.6 % [facility] ([place]) Comment: Interpretive Data Percent cell count reference ranges are not reported, since discordance with absolute values may lead to misinterpretation of CBC data. Current Interpretive Data was last revised on 2017. Monocyte pct 9.1 % [facility] ([place]) Comment: Interpretive Data Percent cell count reference ranges are not reported, since discordance with absolute values may lead to misinterpretation of CBC data. Current Interpretive Data was last revised on 2017. Eosinophil pct 0.4 % [facility] ([place]) Comment: Interpretive Data Percent cell count reference ranges are not reported, since discordance with absolute values may lead to misinterpretation of CBC data. Current Interpretive Data was last revised on 2017. Basophil pct 0.3 % [facility] ([place]) Comment: Interpretive Data Percent cell count reference ranges are not reported, since discordance with absolute values may lead to misinterpretation of CBC data. Current Interpretive Data was last revised on 2017. Blood specimen (specimen) 01/07/2020 3:32 AM CDT 01/07/2020 3:50 AM CDT us Emile Escudero MD LAB BLOOD ORDERABLES Final Re sult NILSA LOWE ([place]) 1 [facility] [place] [address] * (ABNORMAL) CRP (acute phase) (01/07/2020 3:32 AM CDT) CRP 244.7(H) <=10.0 mg/L NILSA RODRIGES ([place]) Blood specimen (specimen) 01/07/2020 3:32 AM CDT 01/07/2020 3:50 AM CDT us Mathew Mccullough MD LAB BLOOD ORDERABL ES Final Result Performing Organization Address [facility] de Phone Number NILSA LOWE ([place]) 1 [facility] [place] [address] * Magnesium (01/07/2020 3:32 AM CDT) Magnesium 2.2 1.4 - 2.5 mg/dL NILSA [facility] ([place]) Blood specimen (specimen) 01/07/2020 3:32 AM CDT 01/07/2020 3:50 AM CDT Emile Escudero MD LAB BLOOD ORDERABLES Final Re sult Performing Organization Address [facility] de Phone Number NILSA LOWE ([place]) 1 [facility] [place] [address] * (ABNORMAL) Phosphorus (01/07/2020 3:32 AM CDT) Phosphorus, pl 1.8(L) 2.3 - 4.5 mg/dL NILSA LOWE ([place]) Blood specimen (specimen) 01/07/2020 3:32 AM CDT 01/07/2020 3:50 AM CDT Emile Escudero MD LAB BLOOD ORDERABLES Final Re sult Performing Organization Address [facility] Co de Phone Number NILSA LOWE ([place]) [address] Department [place] [address] * (ABNORMAL) Comprehensive metabolic panel (01/07/2020 3:32 AM CDT) Sodium 139 135 - 145 mmol/L [facility] ([place]) Potassium, pl 4.3 3.3 - 4.9 mmol/L [facility] ([place]) Chloride 107 97 - 110 mmol/L [facility] ([place]) CO2 25 22 - 32 mmol/L [facility] ([place]) Anion gap 7 2 - 15 mmol/L [facility] ([place]) BUN 15 8 - 25 mg/dL [facility] ([place]) Creatinine 0.90 0.60 - 1.10 mg/dL [facility] ([place]) Glucose 221(H) 70 - 199 mg/dL [facility] ([place]) [...] 2017. Calcium 8.7 8.5 - 10.3 mg/dL [facility] ([place]) Bilirubin, total 0.4 0.1 - 1.2 mg/dL [facility] ([place]) Protein, pl 6.8 6.5 - 8.5 g/dL [facility] ([place]) Albumin 2.6(L) 3.5 - 5.0 g/dL [facility] ([place]) Alk phos 153(H) 40 - 130 Units/L [facility] ([place]) ALT 22 7 - 45 Units/L [facility] ([place]) AST 37 10 - 45 Units/L [facility] ([place]) Blood specimen (specimen) 01/07/2020 3:32 AM CDT 01/07/2020 3:50 AM CDT us Emile Escudero MD LAB BLOOD ORDERABLES Final Re sult NILSA LOWE ([place]) 1 [facility] [place] [address] * (ABNORMAL) CBC with auto differential (01/07/2020 3:32 AM CDT) [facility] WBC 16.3(H) 3.8 - 9.9 K/cumm [facility] ([place]) Hgb 8.2(L) 11.9 - 15.5 g/dL [facility] ([place]) Hct 25.8(L) 35.6 - 45.5 % [facility] ([place]) Plt 406(H) 150 - 400 K/cumm [facility] ([place]) MPV 9.8 9.1 - 12.3 fL [facility] ([place]) RBC 2.81(L) 3.90 - 5.20 M/cumm [facility] ([place]) MCV 91.8 81.3 - 96.4 fL [facility] ([place]) MCH 29.2 27.1 - 33.3 pg [facility] ([place]) MCHC 31.8(L) 32.3 - 35.7 g/dL [facility] ([place]) RDW CV 13.9 11.1 - 14.9 % [facility] ([place]) RDW SD 46.9 35.7 - 48.1 [facility]L [facility] NRBC abs 0.04(H) 0.00 - 0.01 K/cumm [facility] Blood specimen (specimen) 01/07/2020 3:32 AM CDT 01/07/2020 3:50 AM CDT us Emile Escudero MD LAB BLOOD ORDERABLES Final Re sult NILSA LOWE ([place]) 1 [facility] [place] [address] * (ABNORMAL) POCT glucose (01/07/2020 2:25 AM CDT) Pathologist [facility] Glucose, POC 224(H) 71 - 98 mg/dL NILSA LOWE ([place]) Blood specimen (specimen) 01/07/2020 2:25 AM CDT 01/07/2020 2:25 AM CDT Mathew Mccullough MD LAB POCT ORDERABLE S - DEVICE Final Result Performing Organization Address City/[facility]/ZIP Co de Phone Number NILSA LOWE ([place]) 1 [facility] [place] [address] * (ABNORMAL) POCT glucose (01/06/2020 9:22 PM CDT) Pathologist [facility] Glucose, POC 229(H) 71 - 98 mg/dL NILSA LOWE ([place]) Blood specimen (specimen) 01/06/2020 9:22 PM CDT 01/06/2020 9:22 PM CDT Mathew Mccullough MD LAB POCT ORDERABLE S - DEVICE Final Result Performing Organization Address City/[facility] Co de Phone Number CARLOS ENRIQUEELLEN LOWE ([place]) 1 [facility] [place] [address] * Blood culture Blood Hand, right (01/06/2020 8:51 PM CDT) Report Final Report: No growth NILSA LOWE ([place]) Comment:Testing performed by : [facility], [address] [facility] [place] [address] Blood specimen (specimen) (Hand, right) 01/06/2020 8:51 PM CDT 01/07/2020 1:55 AM CDT Narrative NILSA LOWE ([place]) - 01/11/2020 7:01 AM CDT From a different site than #1. 1. ?Blood cultures are incubated for 4 [...] organism identification may be performed using the [employer] Gram-Positive Blood Culture Assay. This assay detects microbial DNA in positive blood culture broth via hybridization of target DNA to capture oligonucleotides on a microarray. This assay has been cleared by the [place] Food and Drug Administration and its performance characteristics have been verified by the [facility]. 5. ?For questions about this culture, contact the Microbiology Laboratory at [phone]. Interpretive data was last revised on 2019. Mathew Mccullough MD LAB MICROBIOLOGY - GENERAL ORDERABLES Final Result NILSA LOWE ([place]) 1 [facility] Department [place] [address] * Blood culture Blood Antecubital, right (01/06/2020 8:51 PM CDT) Report Final Report: No growth NILSA LOWE ([place]) Comment:Testing performed by : [facility], [address] [facility] [place]., [address] Blood specimen (specimen) (Antecubital, right) 01/06/2020 8:51 PM CDT 01/07/2020 1:55 AM CDT Narrative NILSA LOWE ([place]) - 01/11/2020 7:01 AM CDT 1. ?Blood cultures are incubated for 4 [...] organism identification may be performed using the [employer] Gram-Positive Blood Culture Assay. This assay detects microbial DNA in positive blood culture broth via hybridization of target DNA to capture oligonucleotides on a microarray. This assay has been cleared by the [place] Food and Drug Administration and its performance characteristics have been verified by the [facility]biology [facility]. 5. ?For questions about this culture, contact the Microbiology Laboratory at [phone]. Interpretive data was last revised on 2019. Mathew Mccullough MD LAB MICROBIOLOGY - GENERAL ORDERABLES Final Result NILSA LOWE ([place]) 1 [facility] [place] [address] * (ABNORMAL) Vancomycin, trough (01/06/2020 4:45 PM CDT) Vancomycin trough 6.1(L) 15.0 - 20.0 mcg/mL NILSA LOWE ([place]) Comment: Intepretive Data Therapeutic range: ??15 - 20 mcg/ml Current interpretive data was last revised on 2014 Blood specimen (specimen) 01/06/2020 4:45 PM CDT 01/06/2020 5:00 PM CDT Mathew Mccullough MD LAB BLOOD ORDERABL ES Final Result NILSA LOWE ([place]) 1 [facility] [place] [address] * (ABNORMAL) POCT glucose (01/06/2020 4:41 PM CDT) Glucose, POC 177(H) 71 - 98 mg/dL [facility] ([place]) Blood specimen (specimen) 01/06/2020 4:41 PM CDT 01/06/2020 4:41 PM CDT Mathew Mccullough MD LAB POCT ORDERABLE S - DEVICE Final Result NILSA [facility] ([place]) 1 [facility] [place] [address] * (ABNORMAL) POCT glucose (01/06/2020 2:06 PM CDT) Glucose, POC 205(H) 71 - 98 mg/dL [facility] ([place]) Blood specimen (specimen) 01/06/2020 2:06 PM CDT 01/06/2020 2:06 PM CDT Mathew Mccullough MD LAB POCT ORDERABLE S - DEVICE Final Result Performing Organization Address City/[facility] Co de Phone Number NILSA [facility] ([place]) 1 [facility] [place] [address] * (ABNORMAL) POCT glucose (01/06/2020 1:26 PM CDT) Glucose, POC 186(H) 71 - 98 mg/dL [facility] ([place]) Blood specimen (specimen) 01/06/2020 1:26 PM CDT 01/06/2020 1:26 PM CDT Mathew Mccullough MD LAB POCT ORDERABLE S - DEVICE Final Result Performing Organization Address City/[facility]/ZIP Co de Phone Number NILSA LOWE ([place]) 1 [facility] Laboratories [place] [address] * (ABNORMAL) Tissue aerobic and anaerobic culture and gram stain Bone Toe, fourth, right (01/06/2020 1:02 PM CDT) Direct Specimen Exam Stain: No polymorphonuclear leukocytes seen. Few Gram Positive Cocci NILSA LOWE ([place]) Comment:Testing performed by : [facility], [address] [place]., [address] Report Final Report: Moderate Staphylococcus aureus Methicillin resistant (MRSA) by penicillin binding protein 2a (PBP2a) testing. (.) NILSA LOWE ([place]) Comment:Testing performed by : [facility], [address] [place]., [address] Organism STAPHYLOCOCCUS AUREUS NILSA LOWE ([place]) Bone (Toe, fourth, right) 01/06/2020 1:02 PM CDT 01/06/2020 5:03 PM CDT Narrative NILSA LOWE ([place]) - 01/15/2020 1:54 PM CDT Testing performed by [facility] ([phone]) Specimens submitted from normally sterile body sites will have all bacterial morphotypes identified. Specimens that contain grossly mixed radah and/or are from body sites that are not normally sterile will be examined for Staphylococcus aureus, Pseudomonas aeruginosa, beta-hemolytic strep, vancomycin-resistant Enterococcus, Bacteroides, Parabacteroides, Clostridium perfringens and fungus. If any of these are isolated, the organism will be reported. Current interpretive data was last revised on 2019. Organism Antibiotic Method Susceptibility Staphylococcus aureus Daptomycin (CINTIA) (CINTIA) INTERPRET ATION Susceptible Staphylococcus aureus Ceftaroline (CINTIA) INTERPRETATIO N Susceptible Staphylococcus aureus Doxycycline (CINTIA) INTERPRETATIO N Susceptible Staphylococcus aureus Linezolid (CINTIA) INTERPRETATIO N Susceptible Staphylococcus aureus Trimethoprim with Sulfamethoxazole (CINTIA) INTERPRETATION Susceptible Staphylococcus aureus Clindamycin (CINTIA) INTERPRETATIO N Susceptible Staphylococcus aureus Erythromycin (CINTIA) INTERPRETATIO N Resistant Staphylococcus aureus Vancomycin (CINTIA) INTERPRETATIO N Susceptible Staphylococcus aureus Oxacillin (CINTIA) INTERPRETATIO N Resistant Staphylococcus aureus Cefazolin (CINTIA) INTERPRETATIO N Resistant Staphylococcus aureus Ceftriaxone (CINTIA) INTERPRETATIO N Resistant Anat POE LAB MICROBIOLOGY - GENERAL ORDERABLES Final Result Performing Organization Address City/[facility]/ZIP Co de Phone Number NILSA LOWE ([place]) 1 [facility] Department [place] [address] * (ABNORMAL) Tissue aerobic and anaerobic culture and gram stain Biopsy Toe, great, right (01/06/2020 1:00 PM CDT) Direct Specimen Exam Stain: No polymorphonuclear leukocytes seen. No organisms seen. NILSA LOWE ([place]) Comment:Testing performed by : [facility], [address] [place]., [address] Report Final Report: Rare Staphylococcus aureus For susceptibility results, refer to accession number [id number] on the right toe bone culture from 01/06/2020 (.) NILSA LOWE ([place]) Comment:Testing performed by : [facility], [address] [place] [address]., [id number] Organism STAPHYLOCOCCUS AUREUS NILSA LOWE ([place]) Biopsy (Toe, great, right) 01/06/2020 1:00 PM CDT 01/06/2020 5:04 PM CDT Narrative INLSA LOWE ([place]) - 01/09/2020 2:26 PM CDT Right hallux Testing performed by [facility] ([phone]) Specimens submitted from normally sterile body sites [...] interpretive data was last revised on 2019. Anat Pelayo DPM LAB MICROBIOLOGY - GENERAL ORDERABLES Final Result NILSA LOWE ([place]) 1 [facility] Department [place] [address] * (ABNORMAL) POCT glucose (01/06/2020 12:07 PM CDT) Glucose, POC 211(H) 71 - 98 mg/dL [facility] ([place]) Blood specimen (specimen) 01/06/2020 12:07 PM CDT 01/06/2020 12:07 PM CDT Mathew Mccullough MD LAB POCT ORDERABLE S - DEVICE Final Result Performing Organization Address City/[facility]/ZIP Co de Phone Number [facility] ([place]) [address] [place] [phone] * (ABNORMAL) POCT glucose (01/06/2020 11:38 AM CDT) Glucose, POC 245(H) 71 - 98 mg/dL [facility] ([place]) Blood specimen (specimen) 01/06/2020 11:38 AM CDT 01/06/2020 11:38 AM CDT Mathew Mccullough MD LAB POCT ORDERABLE S - DEVICE Final Result Performing Organization Address City/[facility] Co de Phone Number [facility] ([place]) [address] [place] [phone] * Surgical pathology (01/06/2020 9:11 AM CDT) Tissue (Bone Fragment(s),) 01/06/2020 12:55 PM CDT Narrative PATHOLOGY [facility] ([place]) - 01/10/2020 1:38 PM CDT EPIC results best viewed via link to PDF [facility] Department of Pathology [address] [place] [id number] Final Report Patient Name: ??SIXTO CHAKRABORTY Address: ??[address] [place] [address], ??[place], [place] [address] Gender: ??F : ??1950 (Age: 69) Service: ??Medical Location: ??[facility] Hospital #: ??[id number] Patient Type: ??[facility] Accession # [id number] Taken: ??01/06/2020 Received: ??01/09/2020 Accessioned: ??01/09/2020 Reported: ??01/10/2020 Physician(s):Dr Anat Pelayo, DPYudy Corcoran M.D. Diagnosis: Right fourth toe, amputation: ? - Ulceration - Acute inflammation and necrosis - Osteomyelitis, consistent with Dilia Solorzano M.D. Report Electronically Reviewed and Signed Out By ??Dilia Solorzano M.D. ??01/10/2020 13:38:28 Specimen(s) Received: A: Right fourth toe Microscopic Description: The sections submitted from the skin confirms the presence of ulceration. ??The surrounding, non-ulcerated epidermis has an irregular acanthosis associated with surface hyperkeratosis/parakeratosis and spongiosis. ??The underlying dermis has patchy acute and chronic inflammation associated with hemorrhage and fibrosis. ??The sections from the decalcified bone reveal variably necrotic cancellous bone, also involving the marrow space, accompanied by hemorrhage, acute inflammation and possibly bacterial colonization. ??These latter alterations would be consistent with a diagnosis of osteomyelitis. Clinical History: Osteomyelitis. Amputation 4th toe right foot with wound debridement and bone biopsy Gross Description: The specimen is labeled Sixto Chakraborty and right fourth toe . ??It is a 3.4 cm in length by 2 cm in length toe that has been amputated from the metatarsal bone. ??There is a 2 cm ulceration on the lateral side of the toe. ??The bone is submitted separately in the container and is softened. ??Sections are submitted all of bone pieces in cassette one following decalcification and telephone services sales representative skin and soft tissue in cassette 2. ??Mikki Weiner M.D./Ruddy Rider REPORT IMAGES AND SCANNED DOCUMENTS, IF INCLUDED, ONLY VIEWABLE IN PDF VERSION OF REPORT The performance characteristics of some immunohistochemical stains, fluorescence in-situ hybridization tests and immunophenotyping by flow cytometry cited in this report (if any) were determined by the Surgical Pathology Department at [facility] as part of an ongoing air quality manager program and in compliance with federally mandated regulations drawn from the Clinical Laboratory Improvement Act of 1988 (CLIA '). ??Some of these tests rely on the use of analyte specific reagents and are subject to specific labeling requirements by the US Food and Drug Administration. ??Such diagnostic tests may only be performed in a facility that is certified by the Department of Health and Human Services as a high complexity laboratory under CLIA '88. The FDA has determined that such clearance or approval is not necessary. ??This test is used for clinical purposes. ??It should not be regarded as investigational or for research. ??Nevertheless, federal rules concerning the medical use of analyte specific reagents require that the following disclaimer be attached to the report: This test was developed and its performance characteristics determined by the Surgical Pathology Department [facility]. ??It has not been cleared or approved by the U. S. Food and Drug Administration. Anat Pelayo DPM LAB PATHOLOGY ORDERABLES Fi nal Result Performing Organization Address [facility]/ZIP Co de Phone Number PATHOLOGY [facility] ([place]) [address] [place] [address] * (ABNORMAL) POCT glucose (01/06/2020 8:06 AM CDT) Glucose, POC 191(H) 71 - 98 mg/dL [facility] ([place]) Blood specimen (specimen) 01/06/2020 8:06 AM CDT 01/06/2020 8:06 AM CDT Mathew Mccullough MD LAB POCT ORDERABLE S - DEVICE Final Result Performing Organization Address [facility] de Phone Number [facility] ([place]) 1 [facility] Department [place] [address] * eGFR (01/06/2020 3:56 AM CDT) eGFR 63 mL/min/1.7 3 m2 [facility] ([place]) Comment: Interpretive Data Reference Interval Normal ?>/= 90 mL/min/1.73m2 Mildly decreased* ? 60 - 89 mL/min/1.73m2 Mildly to moderately decreased ?45 - 59 mL/min/1.73m2 Moderately to severely decreased ??30 - 44 mL/min/1.73m2 Severely decreased ?15 - 29 mL/min/1.73m2 Kidney Failure ?< 15 ??mL/min/1.73m2 *Relative to young adult level If -Swedish multiply value by 1.16. Estimated glomerular filtration [...] was last reviewed 2016. Blood specimen (specimen) 01/06/2020 3:56 AM CDT 01/06/2020 4:30 AM CDT us Emile Escudero MD LAB BLOOD ORDERABLES Final Re sult NILSA [facility] ([place]) 1 [facility] Department [place] [address] * (ABNORMAL) Differential, auto (01/06/2020 3:56 AM CDT) Neutrophil abs 12.9(H) 1.7 - 6.5 K/cumm [facility] ([place]) Imm gran abs 0.1 0.0 - 0.1 K/cumm [facility] ([place]) Lymphocyte abs 1.5 0.8 - 3.3 K/cumm [facility] ([place]) Monocyte abs 1.1(H) 0.2 - 0.8 K/cumm [facility] ([place]) Eosinophil abs 0.0 0.0 - 0.5 K/cumm [facility] ([place]) Basophil abs 0.0 0.0 - 0.1 K/cumm [facility] ([place]) Neutrophil pct 82.4 % [facility] ([place]) Comment: Interpretive Data Percent cell count reference ranges are not reported, since discordance with absolute values may lead to misinterpretation of CBC data. Current Interpretive Data was last revised on 2017. Imm gran pct 0.6 % [facility] ([place]) Comment: Interpretive Data Percent cell count reference ranges are not reported, since discordance with absolute values may lead to misinterpretation of CBC data. Current Interpretive Data was last revised on 2017. Lymphocyte pct 9.4 % [facility] ([place]) Comment: Interpretive Data Percent cell count reference ranges are not reported, since discordance with absolute values may lead to misinterpretation of CBC data. Current Interpretive Data was last revised on 2017. Monocyte pct 7.1 % NILSA LOWE ([place]) Comment: Interpretive Data Percent cell count reference ranges are not reported, since discordance with absolute values may lead to misinterpretation of CBC data. Current Interpretive Data was last revised on 2017. Eosinophil pct 0.3 % [facility] ([place]) Comment: Interpretive Data Percent cell count reference ranges are not reported, since discordance with absolute values may lead to misinterpretation of CBC data. Current Interpretive Data was last revised on 2017. Basophil pct 0.2 % [facility] ([place]) Comment: Interpretive Data Percent cell count reference ranges are not reported, since discordance with absolute values may lead to misinterpretation of CBC data. Current Interpretive Data was last revised on 2017. Blood specimen (specimen) 01/06/2020 3:56 AM CDT 01/06/2020 4:32 AM CDT us Emile Escudero MD LAB BLOOD ORDERABLES Final Re sult NILSA LOWE ([place]) 1 [facility] Department [place] [address] * (ABNORMAL) CRP (acute phase) (01/06/2020 3:56 AM CDT) CRP 236.1(H) <=10.0 mg/L NILSA [facility]IG[facility] ([place]) Blood specimen (specimen) 01/06/2020 3:56 AM CDT 01/06/2020 4:30 AM CDT Mathew Mccullough MD LAB BLOOD ORDERABL ES Final Result Performing Organization Address [facility]/ZIP Co de Phone Number [facility] ([place]) 1 [facility] [place] [address] * Magnesium (01/06/2020 3:56 AM CDT) Magnesium 2.0 1.4 - 2.5 mg/dL [facility] ([place]) Blood specimen (specimen) 01/06/2020 3:56 AM CDT 01/06/2020 4:30 AM CDT Emile Escudero MD LAB BLOOD ORDERABLES Final Re sult Performing Organization Address [facility] Co de Phone Number [facility] ([place]) 1 [facility] [place] [address] * Phosphorus (01/06/2020 3:56 AM CDT) Phosphorus, pl 2.3 2.3 - 4.5 mg/dL [facility] ([place]) Blood specimen (specimen) 01/06/2020 3:56 AM CDT 01/06/2020 4:30 AM CDT Emile Escudero MD LAB BLOOD ORDERABLES Final Re sult Performing Organization Address [facility]/ZIP Co de Phone Number [facility] ([place]) [address] [facility] [place] [address] * (ABNORMAL) Comprehensive metabolic panel (01/06/2020 3:56 AM CDT) Sodium 135 135 - 145 mmol/L [facility] ([place]) Potassium, pl 4.4 3.3 - 4.9 mmol/L [facility] ([place]) Chloride 102 97 - 110 mmol/L [facility] ([place]) CO2 25 22 - 32 mmol/L [facility] ([place] Anion gap 8 2 - 15 mmol/L [facility] ([place]) BUN 17 8 - 25 mg/dL [facility] ([place]) Creatinine 0.93 0.60 - 1.10 mg/dL [facility] ([place]) Glucose 213(H) 70 - 199 mg/dL [facility] ([place]) [...] 2017. Calcium 8.7 8.5 - 10.3 mg/dL [facility] ([place]) Bilirubin, total 0.3 0.1 - 1.2 mg/dL [facility] ([place]) Protein, pl 6.6 6.5 - 8.5 g/dL [facility] ([place]) Albumin 2.5(L) 3.5 - 5.0 g/dL [facility] ([place]) Alk phos 158(H) 40 - 130 Units/L [facility] ([place]) ALT 21 7 - 45 Units/L [facility] ([place]) AST 33 10 - 45 Units/L [facility] ([place]) Blood specimen (specimen) 01/06/2020 3:56 AM CDT 01/06/2020 4:30 AM CDT us Emile Escudero MD LAB BLOOD ORDERABLES Final Re sult [facility] ([place]) 1 [facility] Department [place] [address] * (ABNORMAL) CBC with auto differential (01/06/2020 3:56 AM CDT) WBC 15.7(H) 3.8 - 9.9 K/cumm [facility] ([place]) Hgb 8.1(L) 11.9 - 15.5 g/dL [facility] ([place]) Hct 25.3(L) 35.6 - 45.5 % [facility] ([place]) Plt 326 150 - 400 K/cumm [facility] ([place]) MPV 10.2 9.1 - 12.3 fL [facility] ([place]) RBC 2.75(L) 3.90 - 5.20 M/cumm [facility] ([place]) MCV 92.0 81.3 - 96.4 fL [facility] ([place]) MCH 29.5 27.1 - 33.3 pg [facility] ([place]) MCHC 32.0(L) 32.3 - 35.7 g/dL [facility] ([place]) RDW CV 14.0 11.1 - 14.9 % [facility] ([place]) RDW SD 47.1 35.7 - 48.1 fL [facility] ([place]) NRBC abs 0.00 0.00 - 0.01 K/cumm [facility] ([place]) Blood specimen (specimen) 01/06/2020 3:56 AM CDT 01/06/2020 4:32 AM CDT us Emile Escudero MD LAB BLOOD ORDERABLES Final Re sult NILSA LOWE ([place]) 1 [facility] Department [place] [address] * (ABNORMAL) POCT glucose (01/06/2020 2:28 AM CDT) Glucose, POC 214(H) 71 - 98 mg/dL [facility] ([place]) Blood specimen (specimen) 01/06/2020 2:28 AM CDT 01/06/2020 2:28 AM CDT Mathew Mccullough MD LAB POCT ORDERABLE S - DEVICE Final Result NILSA LOWE ([place]) 1 [facility] [place] [address] * (ABNORMAL) POCT glucose (01/05/2020 9:43 PM CDT) Glucose, POC 293(H) 71 - 98 mg/dL NILSA LO[facility] ([place]) Blood specimen (specimen) 01/05/2020 9:43 PM CDT 01/05/2020 9:43 PM CDT Mathew Mccullough MD LAB POCT ORDERABLE S - DEVICE Final Result Performing Organization Address City/[facility]/ZIP Co de Phone Number NILSA LOWE ([place]) 1 [facility] [place] [address] * (ABNORMAL) POCT glucose (01/05/2020 4:53 PM CDT) Glucose, POC 176(H) 71 - 98 mg/dL NILSA LOWE ([place]) Blood specimen (specimen) 01/05/2020 4:53 PM CDT 01/05/2020 4:53 PM CDT Mathew Mccullough MD LAB POCT ORDERABLE S - DEVICE Final Result Performing Organization Address City/[facility]/ZIP Co de Phone Number NILSA LOWE ([place]) 1 [facility] [place] [address] * (ABNORMAL) POCT glucose (01/05/2020 11:42 AM CDT) Glucose, POC 179(H) 71 - 98 mg/dL NILSA LOWE ([place]) Blood specimen (specimen) 01/05/2020 11:42 AM CDT 01/05/2020 11:42 AM CDT us Mathew Mccullough MD LAB POCT ORDERABLE S - DEVICE Final Result [facility] [address] [place] [address] * US Arterial Doppler Lower Extremity Bilateral (01/05/2020 9:15 AM CDT) Anatomical Region Laterality Modality Vascular Bilateral Ultrasound 01/05/2020 12:4 2 PM CDT Impressions 01/05/2020 12:43 PM CDT 1. ??Normal right ankle brachial index. 2. ??Normal left ankle brachial index. Electronically signed by: Eliseo Cedeño M.D. Narrative 01/05/2020 12:43 PM CDT EXAMINATION: US ARTERIAL DOPPLER LOWER EXTREMITY BILATERAL ORDERING HEALTHCARE PROVIDER: EMILE ESCUDERO HISTORY: Atherosclerosis of [place] Arteries of Extremities with Intermittent Claudication, Bilateral Leg. ??Right foot ulcer for one month. ?? COMPARISON: None available TECHNIQUE: Sonographic evaluation of the bilateral lower extremities with ankle-brachial index calculations. FINDINGS: The individual pressures are as follows: Right brachial artery: 115 mmHg. Right proximal thigh: 171 mmHg. Right distal thigh: 158 mmHg. Right proximal le mmHg. Right posterior tibial artery: 137 mmHg. Right dorsalis pedis artery: 132 mmHg. Right ankle/brachial index: 1.19. There are multiphasic right posterior tibial artery waveforms. Left brachial artery: 109 mmHg. Left proximal thigh: 161 mmHg. Left distal thigh: 148 mmHg. Left proximal le mmHg. Left posterior tibial artery: 128 mmHg. Left dorsalis pedis artery: 125 mmHg. Left ankle/brachial index: 1.11. There are multiphasic left posterior tibial artery waveforms. Procedure Note Eliseo Cedeño MD - 01/05/2020 EXAMINATION: US ARTERIAL DOPPLER LOWER EXTREMITY BILATERAL ORDERING HEALTHCARE PROVIDER: EMILE ESCUDERO HISTORY: Atherosclerosis of [place] Arteries of Extremities with Intermittent Claudication, Bilateral Leg. Right foot ulcer for one month. COMPARISON: None available TECHNIQUE: Sonographic evaluation of the bilateral lower extremities with ankle-brachial index calculations. FINDINGS: The individual pressures are as follows: Right brachial artery: 115 mmHg. Right proximal thigh: 171 mmHg. Right distal thigh: 158 mmHg. Right proximal le mmHg. Right posterior tibial artery: 137 mmHg. Right dorsalis pedis artery: 132 mmHg. Right ankle/brachial index: 1.19. There are multiphasic right posterior tibial artery waveforms. Left brachial artery: 109 mmHg. Left proximal thigh: 161 mmHg. Left distal thigh: 148 mmHg. Left proximal le mmHg. Left posterior tibial artery: 128 mmHg. Left dorsalis pedis artery: 125 mmHg. Left ankle/brachial index: 1.11. There are multiphasic left posterior tibial artery waveforms. IMPRESSION: 1. Normal right ankle brachial index. 2. Normal left ankle brachial index. Electronically signed by: Eliseo Cedeño M.D. Emile Escudero MD IMG US PROCEDURES Final Resul t * (ABNORMAL) POCT glucose (01/05/2020 8:12 AM CDT) Glucose, POC 177(H) 71 - 98 mg/dL NILSA [facility] ([place]) Blood specimen (specimen) 01/05/2020 8:12 AM CDT 01/05/2020 8:12 AM CDT Mathew Mccullough MD LAB POCT ORDERABLE S - DEVICE Final Result Performing Organization Address City/[facility]/ZIP Co de Phone Number NILSA [facility] ([place]) 1 [facility] [place] [address] * (ABNORMAL) POCT glucose (01/05/2020 2:15 AM CDT) Glucose, POC 236(H) 71 - 98 mg/dL NILSA [facility] ([place]) Blood specimen (specimen) 01/05/2020 2:15 AM CDT 01/05/2020 2:15 AM CDT Mathew Mccullough MD LAB POCT ORDERABLE S - DEVICE Final Result [facility] ([place] 1 [facility] [place] [address] * eGFR (01/05/2020 12:00 AM CDT) eGFR 59 mL/min/1.7 3 m2 [facility] ([place]) Comment: Interpretive Data Reference Interval Normal ?>/= 90 mL/min/1.73m2 Mildly decreased* ? 60 - 89 mL/min/1.73m2 Mildly to moderately decreased ?45 - 59 mL/min/1.73m2 Moderately to severely decreased ??30 - 44 mL/min/1.73m2 Severely decreased ?15 - 29 mL/min/1.73m2 Kidney Failure ?< 15 ??mL/min/1.73m2 *Relative to young adult level If -Swedish multiply value by 1.16. Estimated glomerular filtration [...] was last reviewed 2016. Blood specimen (specimen) 01/05/2020 01/05/2020 12:09 AM CDT Mathew Mccullough MD LAB BLOOD ORDERABL ES Final Result [facility] ([place]) 1 [facility] Department [place] [address] * (ABNORMAL) Differential, auto (01/05/2020 12:00 AM CDT) Neutrophil abs 12.2(H) 1.7 - 6.5 K/cumm [facility] ([place]) Imm gran abs 0.1 0.0 - 0.1 K/cumm [facility] ([place]) Lymphocyte abs 1.6 0.8 - 3.3 K/cumm [facility] ([place]) Monocyte abs 1.1(H) 0.2 - 0.8 K/cumm [facility] ([place]) Eosinophil abs 0.0 0.0 - 0.5 K/cumm [facility] ([place]) Basophil abs 0.0 0.0 - 0.1 K/cumm [facility] ([place]) Neutrophil pct 81.0 % [facility] ([place]) Comment: Interpretive Data Percent cell count reference ranges are not reported, since discordance with absolute values may lead to misinterpretation of CBC data. Current Interpretive Data was last revised on 2017. Imm gran pct 0.5 % [facility] ([place]) Comment: Interpretive Data Percent cell count reference ranges are not reported, since discordance with absolute values may lead to misinterpretation of CBC data. Current Interpretive Data was last revised on 2017. Lymphocyte pct 10.8 % [facility] ([place]) Comment: Interpretive Data Percent cell count reference ranges are not reported, since discordance with absolute values may lead to misinterpretation of CBC data. Current Interpretive Data was last revised on 2017. Monocyte pct 7.3 % [facility] ([place]) Comment: Interpretive Data Percent cell count reference ranges are not reported, since discordance with absolute values may lead to misinterpretation of CBC data. Current Interpretive Data was last revised on 2017. Eosinophil pct 0.3 % [facility] ([place]) Comment: Interpretive Data Percent cell count reference ranges are not reported, since discordance with absolute values may lead to misinterpretation of CBC data. Current Interpretive Data was last revised on 2017. Basophil pct 0.1 % [facility] ([place]) Comment: Interpretive Data Percent cell count reference ranges are not reported, since discordance with absolute values may lead to misinterpretation of CBC data. Current Interpretive Data was last revised on 2017. Blood specimen (specimen) 01/05/2020 01/05/2020 12:09 AM CDT us Mathew Mccullough MD LAB BLOOD ORDERABL ES Final Result [facility] ([place]) 1 [facility] [place] [address] * aPTT (01/05/2020 12:00 AM CDT) aPTT 31 25 - 37 sec [facility] ([place]) Comment: Interpretive data Heparin therapeutic range: 60-94 seconds Range based on correlation with therapeutic heparin activity range of 0.3-0.7 units/ml. Current interpretive data was last revised on 2019. Blood specimen (specimen) 01/05/2020 01/05/2020 12:09 AM CDT Emile Escudero MD LAB BLOOD ORDERABLES Final Re sult [facility] ([place]) 1 [facility] [place] [address] * (ABNORMAL) Protime-INR (01/05/2020 12:00 AM CDT) PT 16.5(H) 9.5 - 13.0 sec [facility] ([place]) INR 1.4(H) 0.9 - 1.2 [facility] ([place]) Comment: Interpretive data Oral anticoagulant therapeutic ranges: Venous thromboembolism prophylaxis or treatment: 2.0-3.0 CARDIOLOGY Standard range: 2.0-3.0 High-intensity range: 2.5-3.5 Refer to indication-specific guidelines for appropriate target ranges for prosthetic heart valve replacement. Current interpretive data was last revised on 2019. Blood specimen (specimen) 01/05/2020 01/05/2020 12:09 AM CDT Emile Escudero MD LAB BLOOD ORDERABLES Final Re sult Performing Organization Address City/[facility]/ZIP Co de Phone Number NILSA LOWE ([place]) 1 [facility] [place] [address] * Phosphorus (01/05/2020 12:00 AM CDT) Phosphorus, pl 2.5 2.3 - 4.5 mg/dL NILSA LOWE ([place]) Blood specimen (specimen) 01/05/2020 01/05/2020 12:09 AM CDT Emile Escudero MD LAB BLOOD ORDERABLES Final Re sult NILSA LOWE ([place]) 1 [facility] [place] [address] * Magnesium (01/05/2020 12:00 AM CDT) Magnesium 1.9 1.4 - 2.5 mg/dL [facility] ([place]) Blood specimen (specimen) 01/05/2020 01/05/2020 12:09 AM CDT Emile Escudero MD LAB BLOOD ORDERABLES Final Re sult Performing Organization Address [facility] Co de Phone Number NILSA LOWE ([place]) 1 [facility] [place] [address] * (ABNORMAL) Comprehensive metabolic panel (01/05/2020 12:00 AM CDT) Sodium 132(L) 135 - 145 mmol/L [facility] ([place]) Potassium, pl 3.9 3.3 - 4.9 mmol/L [facility] ([place]) Chloride 99 97 - 110 mmol/L [facility] ([place]) CO2 25 22 - 32 mmol/L [facility] ([place]) Anion gap 8 2 - 15 mmol/L [facility] ([place]) BUN 17 8 - 25 mg/dL [facility] ([place]) Creatinine 0.98 0.60 - 1.10 mg/dL [facility] ([place]) Glucose 278(H) 70 - 199 mg/dL [facility] ([place]) Comment: Interpretive Data Fasting glucose >/= [...] interpretive data was last revised 2017. Calcium 8.4(L) 8.5 - 10.3 mg/dL [facility] ([place]) Bilirubin, total 0.3 0.1 - 1.2 mg/dL [facility] ([place]) Protein, pl 6.3(L) 6.5 - 8.5 g/dL [facility] ([place]) Albumin 2.6(L) 3.5 - 5.0 g/dL [facility] ([place]) Alk phos 116 40 - 130 Units/L [facility] ([place]) ALT 18 7 - 45 Units/L [facility] ([place]) AST 20 10 - 45 Units/L [facility] ([place]) Blood specimen (specimen) 01/05/2020 01/05/2020 12:09 AM CDT us Emile Escudero MD LAB BLOOD ORDERABLES Final Re sult [facility] ([place]) 1 [facility] Department [place] [address] * (ABNORMAL) CBC with auto differential (01/05/2020 12:00 AM CDT) WBC 15.1(H) 3.8 - 9.9 K/cumm [facility] ([place]) Hgb 8.0(L) 11.9 - 15.5 g/dL [facility] ([place]) Hct 24.7(L) 35.6 - 45.5 % [facility] ([place]) Plt 388 150 - 400 K/cumm [facility] ([place]) MPV 9.6 9.1 - 12.3 fL [facility] ([place]) RBC 2.72(L) 3.90 - 5.20 M/cumm [facility] ([place]) MCV 90.8 81.3 - 96.4 fL [facility] ([place]) MCH 29.4 27.1 - 33.3 pg [facility] ([place]) MCHC 32.4 32.3 - 35.7 g/dL NILSA LOWE ([place]) RDW CV 13.8 11.1 - 14.9 % NILSA LOWE ([place]) RDW SD 45.2 35.7 - 48.1 fL NILSA LOWE ([place]) NRBC abs 0.00 0.00 - 0.01 K/cumm NILSA LOWE ([place]) Blood specimen (specimen) 01/05/2020 01/05/2020 12:09 AM CDT Emile Escudero MD LAB BLOOD ORDERABLES Final Re sult Performing Organization Address City/[facility]/ZIP Co de Phone Number NILSA LOWE ([place]) 1 [facility] [place] [address] * (ABNORMAL) Procalcitonin (01/05/2020 12:00 AM CDT) Procalcitonin 0.44(H) <=0.15 ng/mL NILSA LOWE ([place]) Comment: Test Performed by: [facility] [address] [place] [address] Disbursing Officer: Mane Patel M.D. Ph.D.; IA# [id number] Blood specimen (specimen) 01/05/2020 01/05/2020 12:09 AM CDT Emile Escudero MD LAB BLOOD ORDERABLES Final Re sult Performing Organization Address City/[facility]/ZIP Co de Phone Number NILSA LOWE ([place]) 1 [facility] [place] [address] * COVID-19 Coronavirus RNA Nasopharyngeal (01/04/2020 9:01 PM CDT) COVID-19 RNA Negative Negative NILSA LOWE ([place]) Comment: Testing performed by [facility] ([phone]). This test is performed using the Rollere[employer] Xpress SARS-CoV-2 assay. ??This is a real-time RT-PCR test intended for the qualitative detection of nucleic acid from the SARS-CoV-2. ??This assay has been reviewed by the FDA for Emergency Use Authorization (EUA). The performance characteristics have been verified by the [facility]. ??Results must be considered in the clinical context and a negative result does not rule out infection. Testing performed by: [facility], [address] [place] [address]., [address] Nasopharyngeal 01/04/2020 9: 01 PM CDT 01/04/2020 11:51 PM CDT Narrative NILSA [facility] ([place]) - 01/05/2020 12:47 AM CDT Is the patient experiencing any symptoms consistent with COVID (eg. Fever, cough, shortness of breath)?->No What is the reason for testing?->Screening prior to urgent (<12 hr) surgery, procedure, BMT, immunosuppressive therapy Emile Escudero MD LAB MICROBIOLOGY - GENERAL OR DERABLES Final Result Performing Organization Address [facility]/ZIP Co de Phone Number NILSA [facility] ([place]) 1 [facility] [place] [address] * (ABNORMAL) POCT glucose (01/04/2020 8:56 PM CDT) Glucose, POC 363(H) 71 - 98 mg/dL NILSA LOWE ([place]) Blood specimen (specimen) 01/04/2020 8:56 PM CDT 01/04/2020 8:56 PM CDT Mathew Mccullough MD LAB POCT ORDERABLE S - DEVICE Final Result [facility] ([place]) 1 [facility] [place] [address] * (ABNORMAL) CRP (acute phase) (01/04/2020 5:29 PM CDT) CRP 340.9(H) <=10.0 mg/L NILSA Crabtree ([place]) Blood specimen (specimen) 01/04/2020 5:29 PM CDT 01/04/2020 8:23 PM CDT us Emile Escudero MD LAB BLOOD ORDERABLES Final Re sult NILSA LOWE ([place]) 1 [facility] Department [place] [address] documented in this encounter Visit Diagnoses Diagnosis Acute osteomyelitis of toe of right foot (HCC)- Primary Osteomyelitis (HCC) Unspecified osteomyelitis, site unspecified Uncontrolled type 2 diabetes mellitus with hyperglycemia (HCC) Ulcer of toe of right foot, with fat layer exposed (HCC) Schizophrenia (HCC) Unspecified schizophrenia, unspecified condition Essential hypertension Unspecified essential hypertension Diabetic neuropathy (HCC) Type II or unspecified [...] PRN, 1st line for pain, Starting on Thu01/04/20 at 1940, Indications: PainIndications:Pain Given 01/11/2020 5:34 PM CDT 650 mg Given 01/11/2020 11:56 AM CDT 650 mg Given 01/11/2020 2:00 AM CDT 650 mg amLODIPine (NORVASC) tablet 5 mg 5 mg, oral, Daily, First dose on Thu01/04/20 at 1915 Given 01/11/2020 8:14 AM CDT 5 mg Given 01/10/2020 7:57 AM CDT 5 mg Given 01/09/2020 8:38 AM CDT 5 mg benzonatate (TESSALON) capsule 100 mg 100 mg, oral, Every 8 hours PRN, cough, Starting on Thu01/06/20 at 0440, Do not crush, chew, cut, dissolve, open or otherwise manipulate tablet/capsule., Indications: CoughIndications:Cough Given 01/06/2020 5:24 AM CDT 100 mg bisacodyl EC (DULCOLAX EC) tablet 10 mg 10 mg, oral, Daily PRN, constipation, If no results 24 hours after milk of magnesia, Starting on Thu01/04/20 at 2015, Do not crush, chew, cut, dissolve, open or otherwise manipulate tablet/capsule. cefepime (MAXIPIME) 2,000 mg in sodium chloride 0.9% 100 mL IVPB 2,000 mg, intravenous, at 200 mL/hr, Administer over 30 Minutes, Every 12 hours scheduled, First dose on Thu01/06/20 at 2100, Mini-Bag Plus bag, Indications: Other (complete free text reason below), patient was getting fever, md made aware and changes were made to medicationsIndications:Other (complete free text reason below),patient was getting fever, md made aware and changes were made to medications New Bag 01/07/2020 9:04 AM CDT 2,000 mg 200 mL/hr New Bag 01/06/2020 9:07 PM CDT 2,000 mg 200 mL/hr ciprofloxacin (CIPRO) 400 mg/200 mL in dextrose 5% (premix) 400 mg 400 mg, intravenous, at 200 mL/hr, Administer over 60 Minutes, Every 12 hours scheduled, First dose on Thu01/04/20 at 2100, Indications: Skin/Soft Tissue InfectionIndications:Skin/Soft Tissue Infection New Bag 01/06/2020 9:41 AM CDT 400 mg 200 mL/hr New Bag 01/05/2020 9:36 PM CDT 400 mg 200 mL/hr New Bag 01/05/2020 8:33 AM CDT 400 mg 200 mL/hr dextrose (D10W) 10% bolus 250 mL 250 mL, intravenous, at 1,000 mL/hr, Administer over 15 Minutes, Every 15 min PRN, blood glucose less than 70 mg/dL and UNABLE to swallow/take PO glucose/juice., Starting on Thu01/04/20 at 1836, After treatment for hypoglycemia, recheck BG followed by treatment every 15 minutes until the BG is greater than 100 mg/dL. Then check BG 1 hour post treatment. If BG is less than 100 mg/dL, repeat Q15 minute BG checks and treatment. Call MD for each episode of hypoglycemia., Indications: hypoglycemic disorderIndications:hypoglycemi c disorder dextrose gel in packet 15 g 15 g, oral, Every 15 min PRN, low blood sugar, blood glucose less than 70 mg/dL, Starting on Thu01/04/20 at 1836, If patient is alert and able to [...] hypoglycemic disorderIndications:hypoglycemi c disorder enoxaparin (LOVENOX) syringe 40 mg 40 mg, subcutaneous, Daily (for enoxaparin), First dose on Thu01/04/20 at 2100, Indications: Deep Vein Thrombosis PreventionIndications:Deep Vein Thrombosis Prevention Given 01/10/2020 9:15 PM CDT 40 mg Left Lower Abdomen Given 01/09/2020 8:25 PM CDT 40 mg Le ft Lower Abdomen Given 01/08/2020 8:33 PM CDT 40 mg Le ft Lower Abdomen gabapentin (NEURONTIN) capsule 400 mg 400 mg, oral, 3 times daily, First dose on Thu01/04/20 at 2100 Given 01/11/2020 4:22 PM CDT 400 mg Given 01/11/2020 8:13 AM CDT 400 mg Given 01/10/2020 9:15 PM CDT 400 mg glucagon injection 1 mg 1 mg, intramuscular, Administer over 1 Minutes, Every 30 min PRN, low blood sugar, blood glucose less than 70 mg/dL AND no IV access AND unable to take PO glucose/jiuce., Starting on Thu01/04/20 at 1836, After Glucagon is administered, position patient on [...] MD for each episode of hypoglycemia., Indications: HypoglycemiaIndications:Hypoglycemia hydrALAZINE (APRESOLINE) injection 10 mg 10 mg, intravenous, Administer over 2 Minutes, Every 4 hours PRN, high blood pressure, Starting on Thu01/04/20 at 2042, For BP above 160, Indications: hypertensionIndications:hypertension HYDROcodone-acetaminophen (NORCO) 5-325 mg per tablet 1 tablet 1 tablet, oral, Every 4 hours PRN, 1st line for pain, Starting on Thu01/04/20 at 1830, Indications: PainIndications:Pain Given 01/10/2020 6:16 PM CDT 1 tablet Given 01/10/2020 11:35 AM CDT 1 tablet Given 01/09/2020 11:09 PM CDT 1 tablet insulin glargine (LANTUS,BASAGLAR) pen injection 25 Units 25 Units, subcutaneous, Nightly, First dose on Thu01/04/20 at 2100, Do not mix with other insulins, Indications: Diabetes MellitusIndications:Diabetes Mellitus Given 01/05/2020 9:43 PM CDT 25 Units Right Upper Arm Given 01/04/2020 10:07 PM CDT 25 Units R ight Upper Arm insulin glargine (LANTUS,BASAGLAR) pen injection 32 Units 32 Units, subcutaneous, Nightly, First dose (after last modification) on Thu01/06/20 at 2100, Do not mix with other insulins, Indications: Diabetes MellitusIndications:Diabete s Mellitus Given 01/10/2020 9:13 PM CDT 32 Units Right Lower Abdomen Given 01/09/2020 8:24 PM CDT 32 Units Le ft Lower Abdomen Given 01/08/2020 8:33 PM CDT 32 Units Le ft Lower Abdomen insulin lispro (HumaLOG) pen injection 1-4 Units 1-4 Units, subcutaneous, Nightly, First dose on Thu01/04/20 at 2100, Blood Sugar High Dose PM - PO patients 139 or less No insulin 140 - 175 1 unit 176 - 200 2 units 201 - 250 3 units 251 - 299 4 units Greater than 299 Call MD for hyperglycemia management instructions Do NOT hold for NPO status., Indications: Diabetes MellitusIndications:Diabetes Mellitus Given 01/10/2020 9:14 PM CDT 4 Units Right Lower Abdomen Given 01/09/2020 8:24 PM CDT 4 Units Le ft Lower Abdomen Given 01/08/2020 8:32 PM CDT 4 Units Le ft Lower Abdomen insulin lispro (HumaLOG) pen injection 1-7 Units 1-7 Units, subcutaneous, 3 times daily with meals, First dose on Thu01/04/20 at 1915, Blood Sugar High Dose meal time - PO patients 139 or less No insulin 140 - 175 2 unit 176 - 200 3 unit 201 - 250 5 units 251 - 299 7 units Greater than 299 Call MD for hyperglycemia management instructions Do NOT hold for NPO status., Indications: Diabetes MellitusIndications:Diabetes Mellitus Given 01/11/2020 5:31 PM CDT 5 Units Left Lower Abdomen Given 01/11/2020 11:54 AM CDT 5 Units L eft Lower Abdomen Given 01/11/2020 8:14 AM CDT 5 Units Le ft Lower Abdomen insulin lispro (HumaLOG) pen injection 2 Units 2 Units, subcutaneous, Once, On 01/07/20 at 2145, For 1 dose Given 01/07/2020 9:15 PM CDT 2 Units Left Lower Abdomen insulin lispro (HumaLOG) pen injection 5 Units 5 Units, subcutaneous, Once, On 01/07/20 at 1030, For 1 dose Given 01/07/2020 10:14 AM CDT 5 Units Right Upper Arm Lactated Ringer's (LR) infusion 125 mL/hr, intravenous, Continuous, Starting on Thu01/04/20 at 1915 New Bag 01/05/2020 8:33 AM CDT 125 mL/hr 125 mL/hr New Bag 01/04/2020 8:49 PM CDT 125 mL/hr 125 mL/hr lisinopriL (PRINIVIL,ZESTRIL) tablet 10 mg 10 mg, oral, Daily, First dose on Thu01/04/20 at 1900 Given 01/11/2020 8:13 AM CDT 10 mg Given 01/10/2020 7:57 AM CDT 10 mg Given 01/09/2020 8:38 AM CDT 10 mg magnesium hydroxide (MILK OF MAGNESIA) 80 mg/mL (33.3 mg/mL as elemental magnesium) oral suspension 30 mL 30 mL, oral, Daily PRN, constipation, Starting on Thu01/04/20 at 2015 Given 01/06/2020 10:33 PM CDT 30 mL metroNIDAZOLE (FLAGYL) 500 mg/100 mL in sodium chloride (premix) 500 mg 500 mg, intravenous, at 200 mL/hr, Administer over 30 Minutes, Every 8 hours scheduled, First dose on Thu01/04/20 at 2200, Room temperature only, Indications: Skin/Soft Tissue InfectionIndications:Skin/Soft Tissue Infection New Bag 01/07/2020 5:25 AM CDT 500 mg 200 mL/hr New Bag 01/06/2020 10:29 PM CDT 500 mg 200 mL/hr New Bag 01/06/2020 2:56 PM CDT 500 mg 200 mL/hr mineral oil (FLEET MINERAL OIL) enema 1 enema 1 enema, rectal, Daily PRN, constipation, if no results 24 hours after bisacodyl, Starting on Thu01/04/20 at 2015, Indications: constipationIndications:constipation ondansetron (ZOFRAN) injection 4 mg 4 mg, intravenous, Administer over 2 Minutes, Every 6 hours PRN, nausea, vomiting, if not tolerating PO, Starting on Thu01/04/20 at 1830, Indications: Nausea and VomitingIndications:Nausea and Vomiting Given 01/06/2020 11:01 AM CDT 4 m g Given 01/05/2020 1:58 PM CDT 4 mg Given 01/05/2020 8:27 AM CDT 4 mg ondansetron ODT (ZOFRAN-ODT) disintegrating tablet 4 mg 4 mg, oral, Every 6 hours PRN, nausea, vomiting, Starting on Thu01/04/20 at 1830, Indications: Nausea and VomitingIndications:Nausea and Vomiting oxyCODONE (ROXICODONE) tablet 5 mg 5 mg, oral, Every 4 hours PRN, 2nd line for pain, Starting on Thu01/04/20 at 1940, May administer 1 hour after 1st line analgesic agent for uncontrolled or increasing pain., Indications: PainIndications:Pain Given 01/09/2020 6:24 PM CDT 5 mg Given 01/09/2020 8:40 AM CDT 5 mg Given 01/05/2020 8:27 AM CDT 5 mg potassium phosphates 11 mmol in sodium chloride 0.9% 250 mL IVPB 11 mmol, intravenous, at 42.3 mL/hr, Administer over 6 Hours, Once, On Thu01/05/20 at 0800, For 1 dose, For PERIPHERAL line administration Potassium phosphate 11 mmol ivpb run X 1 dose per pharmacy electrolyte replacement protocol for phosphorous +=2.5 on 01/05/2020 (Potassium = 3.9) New Bag 01/05/2020 10:07 AM CDT 11 mmol 42.3 mL/hr potassium phosphates 12 mmol in sodium chloride 0.9% 250 mL IVPB 12 mmol, intravenous, at 42.3 mL/hr, Administer over 6 Hours, Once, On Thu01/06/20 at 0800, For 1 dose, For PERIPHERAL line administration Potassium phosphate 12 mmol ivpb run X 1 dose per pharmacy electrolyte replacement protocol for phosphorous +=2.3 on 01/06/2020 (Potassium = 4.4) New Bag 01/06/2020 8:06 AM CDT 12 mmol 42. 3 mL/hr sodium chloride 0.9% flush 0.5-20 mL 0.5-20 mL, intra-catheter, Every 8 hours, First dose on Thu01/04/20 at 2200, Flush volume based on line type and size. Given 01/09/2020 1:53 PM CDT 10 mL Given 01/09/2020 4:55 AM CDT 10 mL Given 01/08/2020 3:31 PM CDT 10 mL sodium chloride 0.9% flush 5-10 mL 5-10 mL, intra-catheter, Every 12 hours scheduled, First dose on Thu01/09/20 at 2100, Flush volume based on line type, size, and protocol. Given 01/10/2020 9:14 PM CDT 10 mL Given 01/10/2020 7:57 AM CDT 10 mL sodium chloride 0.9% flush 5-20 mL 5-20 mL, intra-catheter, As needed, line care, with each use, Starting on Thu01/09/20 at 1656, Flush volume based on line type, size, and protocol. sodium chloride 0.9% infusion 30 mL/hr, intravenous, Continuous, Starting on Thu01/06/20 at 1300, Pre-Op New Bag 01/07/2020 5:25 AM CDT 30 mL/hr 30 mL/hr Rate/Dose Verify 01/06/2020 12:28 PM CDT New Bag 01/06/2020 12:17 PM CDT 30 mL/hr 30 mL/hr sodium phosphate - potassium phosphate (K-PHOS NEUTRAL) tablet 500 mg 500 mg, oral, 3 times daily with meals, First dose on Thu01/07/20 at 0800, For 3 doses, X 3 doses today per electrolyte replacement protocol for Phos =1.8 on 01/06 Given 01/07/2020 5:34 PM CDT 500 mg Given 01/07/2020 12:46 PM CDT 500 mg Given 01/07/2020 9:11 AM CDT 500 mg vancomycin (VANCOCIN) 1,750 mg in sodium chloride 0.9% 500 mL IVPB 1,750 mg, intravenous, at 258.8 mL/hr, Administer over 120 Minutes, Every 24 hours, First dose (after last modification) on Thu01/12/20 at 0600, Indications: Skin/Soft Tissue InfectionIndications:Skin/Soft Tissue Infection vancomycin 1,000 mg/200 mL in sodium chloride 0.9% (premix) 1,000 mg 1,000 mg, intravenous, Administer over 60 Minutes, Every 24 hours, First dose (after last modification) on Thu01/06/20 at 1800, Indications: Skin/Soft Tissue InfectionIndications:Skin/Soft Tissue Infection 01/07/2020 5:41 PM CDT 1,000 mg 01/06/2020 6:26 PM CDT 1,000 mg vancomycin 1,000 mg/200 mL in sodium chloride 0.9% (premix) 1,000 mg 1,000 mg, intravenous, Administer over 60 Minutes, Every 12 hours, First dose (after last modification) on Thu01/10/20 at 0600, Indications: Skin/Soft Tissue InfectionIndications:Skin/Soft Tissue Infection 01/11/2020 5:18 AM CDT 1,000 mg 01/10/2020 6:16 PM CDT 1,000 mg 01/10/2020 6:05 AM CDT 1,000 mg vancomycin 750 mg/150 mL in sodium chloride 0.9% (premix) 750 mg 750 mg, intravenous, Administer over 60 Minutes, Every 24 hours, First dose on Thu01/04/20 at 1915, Indications: Skin/Soft Tissue InfectionIndications:Skin/Soft Tissue Infection 01/05/2020 8:02 PM CDT 750 mg 01/04/2020 8:51 PM CDT 750 mg vancomycin 750 mg/150 mL in sodium chloride 0.9% (premix) 750 mg 750 mg, intravenous, Administer over 60 Minutes, Every 12 hours, First dose (after last modification) on Thu01/08/20 at 1800, Indications: Skin/Soft Tissue InfectionIndications:Skin/Soft Tissue Infection 01/09/2020 5:05 PM CDT 750 mg 01/09/2020 4:55 AM CDT 750 mg 01/08/2020 5:21 PM CDT 750 mg documented in this encounter Discontinued Medications Medication Sig Discontinue Reason Start Date End Da te amino acids-protein hydr-fiber 15-90 gram-kcal/30 mL liquidIndications: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 Indications: relaxation Stop Taking at Discharge 01/11/2020 ciprofloxacin (CIPRO) 500 mg tablet Take 1 tablet (500 mg total) by mouth 2 (two) times a day for 14 days Stop Taking at Discharge 12/22/2019 01/11/2020 documented as of this encounter Historical Medications * This list may reflect changes made after this encounter. insulin glargine (LANTUS,BASAGLAR) 100 unit/mL (3 mL) insulin penIndications:ty pe 2 diabetes mellitus Inject 30 Units under the skin nightly 01/17/2020 added in this encounter Active and Recently Administered Medications Times are shown in CDT. Scheduled Medication Order 01/09/2020 01/10/2020 01/11/2020 amLODIPine (NORVASC) tablet 5 mg 5 mg, oral, Daily, First dose on Thu01/04/20 at 1915 0838 (Given - Provider: Claudia Nguyen RN) 0757 (Given - Provider: Mary Leach RN) 0814 (Given - Provider: Olivier Quezada RN) enoxaparin (LOVENOX) syringe 40 mg 40 mg, subcutaneous, Daily (for enoxaparin), First dose on Thu01/04/20 at 2100, Indications: Deep Vein Thrombosis Prevention 2024 (Given - Provider: Lakia Crabtree RN) 2114 (Given - Provider: Darlyn Hernandez, ALIREZA) gabapentin (NEURONTIN) capsule 400 mg 400 mg, oral, 3 times daily, First dose on Thu01/04/20 at 2099 0838 (Not Given - Provider: Claudia Nguyen RN - Reason: Patient/family refused - Comment: Pt stated she took Medication already this morning, after stating to her the last dose was at 2032, she stated no I took that this morning already. )1706 (Given - Provider: Claudia Nguyen RN)2022 (Given - Provider: Lakia Crabtree RN) 0758 (Given - Provider: Mary Leach RN)1220 (Given - Provider: Mary Leach RN)1642 (Not Given - Provider: Mary Leach RN - Reason: Other - Comment: given early. Doctor aware)2114 (Given - Provider: Darlyn Hernandez, ALIREZA) 0813 (Given - Provider: Olivier Quezada, ALIREZA)1622 (Given - Provider: Radha Tran, ALIREZA) insulin glargine (LANTUS,BASAGLAR) pen injection 32 Units 32 Units, subcutaneous, Nightly, First dose (after last modification) on Thu01/06/20 at 2100, Do not mix with other insulins, Indications: Diabetes Mellitus 2023 (Given - Provider: Lakia Crabtree RN) 2112 (Given - Provider: Darlyn Hernandez, ALIREZA) insulin lispro (HumaLOG) pen injection 1-4 Units 1-4 Units, subcutaneous, Nightly, First dose on Thu01/04/20 at 2100, Blood Sugar High Dose PM - PO patients 139 or less No insulin 140 - 175 1 unit 176 - 200 2 units 201 - 250 3 units 251 - 299 4 units Greater than 299 Call MD for hyperglycemia management instructions Do NOT hold for NPO status., Indications: Diabetes Mellitus 2023 (Given - Provider: Lakia Crabtree, ALIREZA) 2113 (Given - Provider: Darlyn Hernandez, ALIREZA) insulin lispro (HumaLOG) pen injection 1-7 Units 1-7 Units, subcutaneous, 3 times daily with meals, First dose on Thu01/04/20 at 1915, Blood Sugar High Dose meal time - PO patients 139 or less No insulin 140 - 175 2 unit 176 - 200 3 unit 201 - 250 5 units 251 - 299 7 units Greater than 299 Call MD for hyperglycemia management instructions Do NOT hold for NPO status., Indications: Diabetes Mellitus 0836 (Not Given - Provider: Claudia Nguyen RN - Reason: Contraindicated)1155 (Given - Provider: Claudia Nguyen RN)1706 (Given - Provider: Claudia Nguyen RN) 0756 (Not Given - Provider: Mary Leach RN - Reason: Order parameters not met)1219 (Given - Provider: Mary Leach RN)1643 (Not Given - Provider: Mary Leach RN - Reason: Order parameters not met) 0814 (Given - Provider: Olivier Quezada RN)1154 (Given - Provider: Olivier Quezada, ALIREZA)1731 (Given - Provider: Olivier Quezada, ALIREZA) lisinopriL (PRINIVIL,ZESTRIL) tablet 10 mg 10 mg, oral, Daily, First dose on Thu01/04/20 at 1900 0838 (Given - Provider: Claudia Nguyen RN) 0757 (Given - Provider: Mary Leach RN) 0813 (Given - Provider: Olivier Quezada, ALIREZA) sodium chloride 0.9% flush 0.5-20 mL (CANCELED) 0.5-20 mL, intra-catheter, Every 8 hours, First dose on Thu01/04/20 at 2200, Flush volume based on line type and size. 0455 (Given - Provider: Lakia Crabtree, ALIREZA)1353 (Given - Provider: Claudia Nguyen RN)2024 (Not Given - Provider: Lakia Crabtree RN - Reason: IV Infusing) sodium chloride 0.9% flush 5-10 mL 5-10 mL, intra-catheter, Every 12 hours scheduled, First dose on Thu01/09/20 at 2100, Flush volume based on line type, size, and protocol. 2024 (Not Given - Provider: Lakia Crabtree RN - Reason: IV Infusing) 0757 (Given - Provider: Mary Leach, ALIREZA)2114 (Given - Provider: Darlyn Hernandez, ALIREZA) 0814 (Not Given - Provider: Olivier Quezada RN - Reason: IV Infusing) vancomycin (VANCOCIN) 1,750 mg in sodium chloride 0.9% 500 mL IVPB 1,750 mg, intravenous, at 258.8 mL/hr, Administer over 120 Minutes, Every 24 hours, First dose (after last modification) on Kellie 01/12/20 at 0600, Indications: Skin/Soft Tissue Infection vancomycin 1,000 mg/200 mL in sodium chloride 0.9% (premix) 1,000 mg 1,000 mg, intravenous, Administer over 60 Minutes, Every 12 hours, First dose (after last modification) on Thu01/10/20 at 0600, Indications: Skin/Soft Tissue Infection 0605 (New Bag - Provider: Lakia Crabtree RN)1816 (New Bag - Provider: Mary Leach RN) 0518 (New Bag - Provider: Darlyn Hernandez RN) vancomycin 750 mg/150 mL in sodium chloride 0.9% (premix) 750 mg (CANCELED) 750 mg, intravenous, Administer over 60 Minutes, Every 12 hours, First dose (after last modification) on Thu01/08/20 at 1800, Indications: Skin/Soft Tissue Infection 0455 (New Bag - Provider: Lakia Crabtree RN)1705 (New Bag - Provider: Claudia Nguyen RN) PRN Medication Order 01/09/2020 01/10/2020 01/11/2020 acetaminophen (TYLENOL) tablet 650 mg 650 mg, oral, Every 4 hours PRN, 1st line for pain, Starting on Thu01/04/20 at 1940, Indications: Pain 0200 (Given - Provider: Darlyn Hernandez RN)1156 (Given - Provider: Olivier Quezada, RN)1734 (Given - Provider: Olivier Quezada, RN) benzonatate (TESSALON) capsule 100 mg 100 mg, oral, Every 8 hours PRN, cough, Starting on Thu01/06/20 at 0440, Do not crush, chew, cut, dissolve, open or otherwise manipulate tablet/capsule., Indications: Cough bisacodyl EC (DULCOLAX EC) tablet 10 mg 10 mg, oral, Daily PRN, constipation, If no results 24 hours after milk of magnesia, Starting on Thu01/04/20 at 2015, Do not crush, chew, cut, dissolve, open or otherwise manipulate tablet/capsule. dextrose (D10W) 10% bolus 250 mL(Linked Group 1) 250 mL, intravenous, at 1,000 mL/hr, Administer over 15 Minutes, Every 15 min PRN, blood glucose less than 70 mg/dL and UNABLE to swallow/take PO glucose/juice., Starting on Thu01/04/20 at 1836, After treatment for hypoglycemia, recheck BG followed [...] glucose less than 70 mg/dL, Starting on Thu01/04/20 at 1836, If patient is alert and able to [...] 2 times daily PRN, constipation, Starting on Thu01/04/20 at 1939, Indications: constipation glucagon injection 1 mg 1 mg, intramuscular, Administer over 1 Minutes, Every 30 min PRN, low blood sugar, blood glucose less than 70 mg/dL AND no IV access AND unable to take PO glucose/jiuce., Starting on Thu01/04/20 at 1836, After Glucagon is administered, position patient on [...] MD for each episode of hypoglycemia., Indications: Hypoglycemia hydrALAZINE (APRESOLINE) injection 10 mg 10 mg, intravenous, Administer over 2 Minutes, Every 4 hours PRN, high blood pressure, Starting on Thu01/04/20 at 2042, For BP above 160, Indications: hypertension HYDROcodone-acetaminophen (NORCO) 5-325 mg per tablet 1 tablet 1 tablet, oral, Every 4 hours PRN, 1st line for pain, Starting on Thu01/04/20 at 1830, Indications: Pain 0651 (Given - Provider: Lakia Crabtree RN)2309 (Given - Provider: Lakia Crabtree RN) 1135 (Given - Provider: Mary Leach, ALIREZA)1816 (Given - Provider: Mary Leach, ALIREZA) magnesium hydroxide (MILK OF MAGNESIA) 80 mg/mL (33.3 mg/mL as elemental magnesium) oral suspension 30 mL 30 mL, oral, Daily PRN, constipation, Starting on Thu01/04/20 at 2014 mineral oil (FLEET MINERAL OIL) enema 1 enema 1 enema, rectal, Daily PRN, constipation, if no results 24 hours after bisacodyl, Starting on Thu01/04/20 at 2014, Indications: constipation ondansetron (ZOFRAN) injection 4 mg(Linked Group 2) 4 mg, intravenous, Administer over 2 Minutes, Every 6 hours PRN, nausea, vomiting, if not tolerating PO, Starting on Thu01/04/20 at 1830, Indications: Nausea and Vomiting ondansetron ODT (ZOFRAN-ODT) disintegrating tablet 4 mg(Linked Group 2) 4 mg, oral, Every 6 hours PRN, nausea, vomiting, Starting on Thu01/04/20 at 1830, Indications: Nausea and Vomiting oxyCODONE (ROXICODONE) tablet 5 mg 5 mg, oral, Every 4 hours PRN, 2nd line for pain, Starting on Thu01/04/20 at 1940, May administer 1 hour after 1st line analgesic agent for uncontrolled or increasing pain., Indications: Pain 0840 (Given - Provider: Claudia Nguyen, ALIREZA)1824 (Given - Provider: Claudia Nguyen RN) sodium chloride 0.9% flush 5-20 mL 5-20 mL, intra-catheter, As needed, line care, with each use, Starting on Thu01/09/20 at 1656, Flush volume based on line type, size, and protocol. Linked Groups Order Group 1: dextrose gel in packet 15 gJump to med 15 g, oral, Every 15 min PRN, low blood sugar, blood glucose less than 70 mg/dL, Starting on Thu01/04/20 at 1836, If patient is alert and able to [...] UNABLE to swallow/take PO glucose/juice., Starting on Thu01/04/20 at 1836, After treatment for hypoglycemia, recheck BG followed [...] 6 hours PRN, nausea, vomiting, Starting on Thu01/04/20 at 1830, Indications: Nausea and Vomiting Or ondansetron (ZOFRAN) injection 4 mgJump to med 4 mg, intravenous, Administer over 2 Minutes, Every 6 hours PRN, nausea, vomiting, if not tolerating PO, Starting on Thu01/04/20 at 1830, Indications: Nausea and Vomiting documented in this encounter Orders Medications Ordered That Flip ht Not Have Been Administered Count Last Ordered Date First Ordered Date vancomycin (VANCOCIN) 1,750 mg in sodium chloride 0.9% 500 mL IVPB 1 01/11/2020 sodium chloride 0.9% flush 5-20 mL 1 2019 bupivacaine (MARCAINE) 0.5 % (5 mg/mL) preservative free injection 1 01/06/2020 fentaNYL (SUBLIMAZE) preserv ative free injection 25 mcg 1 01/06/2020 naloxone (NARCAN) 0.4 mg/mL injection 0.04-0.4 mg 1 01/06/2020 sodium chloride 0.9 % irrigation 01/06/20 sodium chloride 0.9% flush 0.5-20 mL 2 12/2001/04/2020 bisacodyl EC (DULCOLAX EC) tablet 10 mg 1 0 01/04/2020 dextrose (D10W) 10% bolus 250 mL 01/04/20 dextrose gel in packet 15 g 1 01/04/2020 docusate sodium (COLACE) capsule 100 mg 1 0 01/04/2020 glucagon injection 1 mg 1 01/04/2020 hydrALAZINE (APRESOLINE) injection 10 mg 1 01/04/2020 mineral oil (FLEET MINERAL O [place]) enema 1 enema 1 01/04/2020 ondansetron ODT (ZOFRAN-ODT) disintegrating tablet 4 mg 1 01/04/2020 Lab Orders Without Results Count Last Ordered D ate First Ordered Date POCT GLUCOSE DEVICE 12 01/11/2020 01/07/20 EKG Orders Without Results Count Last Ordered D ate First Ordered Date ECG 12-LEAD 1 01/04/2020 Diet Count Last Ordered Date First Orde red Date ADULT DISCHARGE DIET 1 01/10/2020 Nursing Count Last Ordered Date First Orde red Date DISCHARGE CALL PROVIDER 6 01/10/2020 DISCHARGE INSTRUCTIONS 1 01/10/2020 FOLLOW UP WITH ESTABLISHED PROVIDER 1 01/09 OTHER FOLLOW UP 01/10/2020 Consult Count Last Ordered Date First Orde red Date IP CONSULT TO INFECTIOUS DISEASES 1 020 IP CONSULT TO PODIATRY 1 01/04/2020 CORE MEASURES Count Last Ordered Date First Ord ered Date REASON FOR NO VTE PROPHYLAXIS AT ADMISSION 1 01/04/2020 documented in this encounter Additional Health Concerns Infection Onset Date Last Indicated Resolved Time 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
--- OUTSIDE RECORDS SUMMARY | 2024-07-04 04:23 | XMS_ITS | Encounter Summary ---
Author Organization [facility] Home Care Servic es Address [address] [place] [address] Phone Care Team Providers Care Vocational Rehabilitation Consultant Name Role Phone Cherelle Corcoran MD Primary Care Pro vider Mark Gallo MD Unavailable [phone] Reason for Visit * Reason Comments Wound Infection * Auth/Cert Specialty Diagnoses / Procedures Referred By Maryse t Referred To Contact Referral ID Status Reason Start Date Expiration Date Visits Re quested Visits Authorized [id number] 1 1 Encounter Details Date Type Department Care Team (Late st Contact Info) Description 01/13/2020 9:00 AM CDT Home Care Visit [facility] [address] [address] [address] [place] [address] Maddie Rojas RN SN HOME VISIT Social History Tobacco [...] Legal Sex Female 9:03 AM CENTRAL OFFICE INSTALLER Gender Identity Female 02/08/2020 6:39 PM CDT Sexual Orientation Not on file documented as of this encounter Last Filed Vital Signs Vital Sign Reading Time Taken Comments Blood Pressure 160/70 01/13/2020 10:00 AM CDT Pulse 86 01/13/2020 10:00 AM CDT Temperature 36.2 ??C (97.2 ??F) 01/13/2020 10:00 AM C DT Respiratory Rate 20 01/13/2020 10:00 AM CDT Oxygen Saturation 96% 01/13/2020 10:00 AM CDT Inhaled Oxygen Concentration - - Weight - - Height - - Body Mass Index - - documented in this encounter Plan of Treatment Upcoming Encounters Date Type Department Care Team (Latest Contact Info) Description 07/13/2024 9:00 AM CENTRAL OFFICE INSTALLER Hospital Encounter [facility] [address] [place] [address] Jaya Grier MD [facility] [facility] [address] [place] [id number] 07/13/2024 9:00 AM CENTRAL OFFICE INSTALLER - 07/13/2024 9:30 AM CENTRAL OFFICE INSTALLER Surgery [facility] [address] [place] [address] Jaya Grier MD [facility] [facility] [address] [place] [id number] ESOPHAGOGASTRODUODENOSCOPY Scheduled Procedures Name Priority Associated Diagnoses Date/Ti dc ESOPHAGOGASTRODUODENOSCOPY Anemia, unspecified type Gastritis without bleeding, unspecified chronicity, unspecified gastritis type 07/13/2024 9:00 AM CENTRAL OFFICE INSTALLER COLONOSCOPY Iron deficiency anemia due to chronic blood loss documented as of this encounter Visit Diagnoses Not on filedocumented in this encounter Additional Health Concerns Infection Onset Date Last Indicated Resolved Time MRSA 01/06/2020 01/06/2020 02/06/2021 5:00 AM CDT documented as of this encounter Home Health Visit - Care Plan Visit Details Visit Type -SN Home Visit Discipline -Group Home Problems Problem Description Start Date Status Goals Interve ntions Homebound Status Disciplines: Group Home Patient's homebound status 10/23/2019 Active 1 goal linked to scheduled/documen bruno intervention 1 goal intervention scheduled/document ed in this visit Monitor patient's vital signs every home health visit Disciplines: Group Home Monitor patient's vital signs every home health visit. 10/23/2019 Active 1 goal linked to scheduled/documen bruno intervention 1 goal intervention scheduled/document ed in this visit Infection Prevention Disciplines: Group Home Infection Prevention 10/23/2019 Active 1 goal linked to scheduled/documen bruno intervention 1 goal intervention scheduled/document ed in this visit Disease Management - Diabetes Disciplines: Group Home Management of diabetes symptoms 10/23/2019 Active 1 goal linked to scheduled/documen bruno intervention 1 goal intervention scheduled/document ed in this visit Learning/Teachi ng Needs - Diabetes Disciplines: Group Home Learning and teaching needs associated with diagnosis 10/23/2019 Active 1 goal linked to scheduled/documen bruno intervention 2 goal interventions scheduled/document ed in this visit Collect Specimen/Lab Draw Disciplines: Group Home Need to collect specimen sample 01/12/2020 Active - 1 problem intervention scheduled/document ed in this visit IV Therapy-Managem ent, Education, and Maintenance Disciplines: Group Home Teaching and learning needs for performing home [...] visit during episode of care Description: Home algorithm design engineer to measure vital signs during every home health visit during episode of care. Monitor patient's vital signs every home health visit No Verbalize signs of infection Description: Verbalize signs of infection Infection Prevention No Verbalize prevention of infection Description: Patient will remain free from infections and verbalize methods to prevent infection and how to perform foot care Disease Management - Diabetes No Demonstrate adequate knowledge of Diabetes Description: [...] health visit during episode of care Completed VSS. SBP IS 160 BUT PATIENT HAD NOT TAKEN AM MEDS. Educate Patient on Infection Prevention Description: Instruct patient on signs and symptoms of infection IE: fever, odor, change in color, increased amount of drainage, purulent drainage, warmth. Problem:Infection Prevention Goal:Verbalize signs of infection Completed DAUGHTER INSTRUCTING PATIENT TO KEEP DRSG CLEAN AND DRY. DAUGHTER DID PLACE A SOFT SHOE BOOTIE OVER THE DRSG AND DID INSTRUCT THE PATIENT TO KEEP THE DRSG COVERED TO PREVENT SOILING. PATIENT STATES SHE UNDERSTANDS AND DID PLACE BOOTIE OVER DRSG. Assess Diabetes: Knowledge Deficit Description: Assess for knowledge deficit of diabetes management Problem:Disease Management - Diabetes Goal:Verbalize prevention of infection Completed DAUGHTER ASSISTS PATIENT WITH MEDS. SETS DOSE ON SQ ORAL HYPOGLYCEMICS FOR ADMINISTRATION. PATIENT DOES UNDERSTAND WHAT IT MEANS TO BE DIABETIC--STATES IT IS WHEN YOU HAVE TROUBLE CONTROLLING YOUR SUGAR. IS ABLE TO VERBALIZE AND UNDERSTANDING. THAT 60 IS LOW AND 200 IS HIGH Instruct diet Description: Instruct on diabetic diet. instructed to limit sugars and carbs. Problem:Learning/Teac jasiel Needs - Diabetes Goal:Demonstrate adequate knowledge of Diabetes Completed DAUGHTER MANAGES MEALS ND STATES SHE DOES MAKE SURE THAT PATIENT IS NOT EATING HIGH CARBS AND/OR SWEETS. Blood glucose monitoring Description: Patient/caregiver to perform blood sugar testing and record in log. Frequency of testing bid and prn for feelings of hypo or hyperglycemia Problem:Learning/Teac jasiel Needs - Diabetes Goal:Demonstrate adequate knowledge of Diabetes Completed SEE DIABETIC SCREENING. Lab draw Description: First lab draw to be done on 01/13/20. Obtain Vanco trough and BMP before third dose on 01/13/20. Then obtain CMP, CBC, ESR and Vanco Trough every Thursday and Vanco trough and BMP every . Start Thursday/ labs week of 01/16/20 Written order:Brigid Sheffield/ Dr Gallo Problem:Collect Specimen/Lab Draw Completed Sample obtained from PICC IN THE LEFT ARM using aseptic technique for CMP/VANCOMYCIN TROUGH. as ordered. IV LINE CARE DONE PER BLOOD [facility] POLICY. Next lab draw due, 01/16/2020. Midline Description: Skilled Nurse to instruct patient/caregiver [...] PICC Problem:IV Therapy-Management, Education, and Maintenance Completed DRSG CHGE WAS DONE ON 01/12/2020. PER DAUGHTER, DRSG IS A SPECIALTY DRSG AND IS ONLY CHGED EVERY 2 DAYS. DAUGHTER STATES THE LAST NURSE WITNESSED DRSG CHGE AND WAS OK WITH HOW DAUGHTER PERFORMED THE PROCEDURE. documented in this encounter Home Health Visit - Actions and Narratives Actions LABS DRAWN. FLUSH AND MAINTENANCE COMPLETED. REVIEWED AND SUPERVISED DAUGHTER GIVING IV MED. Narratives PATIENT DOES TALK EXCESSIVEL Y AND IS OFTEN JUST TALKING OUT LOUD. PATIENT'S ABILITY TO CARE FOR SELF QUESTIONABLE BECAUSE SHE HAS HX OF SCHITZOPHERENIA. SN DID CALL LAST PM TO SCHEDULE A VISIT. SN DID TALK TO PATIENT WHO WAS ASLEEP WHEN SN ARRIVED AND THE DAUGHTER STATES SHE WAS NOT AWARE OF THE VISIT. SN DID ASSURE DAUGHTER THAT FUTURE CALLS FOR VISIT WILL BE MADE THRU HER. documented in this encounter Care Teams Vocational Rehabilitation Consultant Relationship Specialty Start Date End Date Cherelle Corcoran MD PCP - General Family Medicine 08/30/19 Mark Gallo MD Consulting Physician Infectious Diseases 01/10/20 documented as of this encounter
--- OUTSIDE RECORDS SUMMARY | 2024-07-04 04:23 | XMS_ITS | Encounter Summary ---
Author Organization [facility] Healthcare Address [address] [place] [address] Care Team Providers Care Skin Care Specialist Name Role Phone Cherelle Corcoran MD Primary Care Pro vider Mark Queen MD Unavailable [phone] Encounter Details Date Type Department Care Team (Late st Contact Info) Description 01/13/2020 2:40 PM CDT Lab [facility] [address] [place] [address] Acute osteomyelitis of toe of right foot ([facility]/HCC) Social History Tobacco Use Types Packs/Day Years Used Date Smoking Tobacco: Never Smokeless Tobacco: Never Alcohol Use Standard Drinks/Week Comments Not Currently 0 (1 standard drink = 0.6 oz pur e alcohol) PHQ-2 Answer Date Recorded PHQ-2 Score 2 01/04/2020 Comments No Sex and Gender Information Value Date Recorded Sex Assigned at Not on file Legal Sex Female 9:03 AM HUMAN RESOURCES COORDINATOR Gender Identity Female 02/08/2020 6:39 PM CDT Sexual Orientation Not on file documented as of this encounter Plan of Treatment Upcoming Encounters Date Type Department Care Team (Latest Contact Info) Description 07/13/2024 9:00 AM HUMAN RESOURCES COORDINATOR Hospital Encounter [facility] GI Lab [address] [place] [address] Jaya Grier MD [address] [address] 07/13/2024 9:00 AM HUMAN RESOURCES COORDINATOR - 07/13/2024 9:30 AM HUMAN RESOURCES COORDINATOR Surgery [facility] GI Lab [address] [place] [address] Jaya Grier MD [address] [facility] [address] [place] [address] ESOPHAGOGASTRODUODENOSCOPY Scheduled Procedures Name Priority Associated Diagnoses Date/Ti me ESOPHAGOGASTRODUODENOSCOPY Anemia, unspecified type Gastritis without bleeding, unspecified chronicity, unspecified gastritis type 07/13/2024 9:00 AM HUMAN RESOURCES COORDINATOR COLONOSCOPY Iron deficiency anemia due to chronic blood loss documented as of this encounter Procedures Procedure Name Priority Date/Time Associated Diagnosis Comments CRP (ACUTE PHASE) Routine 01/13/2020 2:5 2 PM CDT EGFR Routine 01/13/2020 1:30 PM CDT Acute osteomyelitis of toe of right foot (CMS/HCC) VANCOMYCIN LEVEL TROUGH Routine 01/13/2020 1:30 PM CDT Acute osteomyelitis of toe of right foot (CMS/HCC) COMPREHENSIVE METABOLIC PANEL Routine 01/13/2020 1:30 PM CDT Acute osteomyelitis of toe of right foot (CMS/HCC) documented in this encounter Results * (ABNORMAL) CRP (acute phase) (01/13/2020 2:52 PM CDT) CRP 87.6(H) <=10.0 mg/L [facility] ([place]) Blood specimen (specimen) 01/13/2020 2:52 PM CDT 01/13/2020 2:52 PM CDT us Mark Queen MD LAB BLOOD ORDERABLES Final Result [facility] L[facility] ([place]) 1 [facility] Department [place] [address] * eGFR (01/13/2020 1:30 PM CDT) eGFR 79 mL/min/1.7 3 m2 [facility] ([place]) Comment: Interpretive Data Reference Interval Normal ?>/= 90 mL/min/1.73m2 Mildly decreased* ? 60 - 89 mL/min/1.73m2 Mildly to moderately decreased ?45 - 59 mL/min/1.73m2 Moderately to severely decreased ??30 - 44 mL/min/1.73m2 Severely decreased ?15 - 29 mL/min/1.73m2 Kidney Failure ?< 15 ??mL/min/1.73m2 *Relative to young adult level If -[place] multiply value by 1.16. Estimated glomerular filtration [...] was last reviewed 2016. Blood specimen (specimen) 01/13/2020 1:30 PM CDT 01/13/2020 3:04 PM CDT us Mark Queen MD LAB BLOOD ORDERABLES Final Result [facility] CHRISSY ([place]) 1 [facility] Department [place] [address] * (ABNORMAL) Comprehensive metabolic panel (01/13/2020 1:30 PM CDT) Sodium 140 135 - 145 mmol/L [facility] ([place]) Potassium, pl 4.0 3.3 - 4.9 mmol/L [facility] ([place]) Chloride 101 97 - 110 mmol/L [facility] ([place]) CO2 27 22 - 32 mmol/L [facility] ([place]) Anion gap 12 2 - 15 mmol/L [facility]) BUN 10 8 - 25 mg/dL [facility] ([place]) Creatinine 0.77 0.60 - 1.10 mg/dL [facility] ([place]) [...] 2017. Calcium 9.8 8.5 - 10.3 mg/dL [facility] ([place]) Bilirubin, total <0.2 0.1 - 1.2 mg/dL [facility] ([place]) Protein, pl 8.1 6.5 - 8.5 g/dL [facility] ([place]) Albumin 2.8(L) 3.5 - 5.0 g/dL [facility] ([place]) Alk phos 241(H) 40 - 130 Units/L [facility] ([place]) ALT 17 7 - 45 Units/L [facility] ([place]) AST 26 10 - 45 Units/L [facility] ([place]) Blood specimen (specimen) (Blood, Venous) 01/13/2020 1:30 PM CDT 01/13/2020 3:04 PM CDT us Mark Queen MD LAB BLOOD ORDERABLES Final Result [facility] ([place]) 1 [facility] Department [place] [address] * (ABNORMAL) Vancomycin, trough (01/13/2020 1:30 PM CDT) Vancomycin trough 11.6(L) 15.0 - 20.0 mcg/mL [facility] ([place]) Comment: Intepretive Data Therapeutic range: ??15 - 20 mcg/ml Current interpretive data was last revised on 2014 Blood specimen (specimen) (Blood, Venous) 01/13/2020 1:30 PM CDT 01/13/2020 3:04 PM CDT us Mark Queen MD LAB BLOOD ORDERABLES Final Result [facility] L[facility] ([place]) 1 [facility] [place] [address] documented in this encounter Visit Diagnoses Diagnosis Acute osteomyelitis of toe of right foot (HCC) Anemia, unspecified type Gastritis without bleeding, unspecified chronicity, unspecified gastritis type documented in this encounter Additional Health Concerns Infection Onset Date Last Indicated Resolved Time MRSA 01/06/2020 01/06/2020 02/06/2021 5:00 AM CDT documented as of this encounter Care Teams Skin Care Specialist Relationship Specialty Start Date End Date Cherelle Corcoran MD PCP - General Family Medicine 08/30/19 Mark Queen MD Consulting Physician Infectious Diseases 01/10/20 documented as of this encounter
--- OUTSIDE RECORDS SUMMARY | 2024-07-04 04:23 | XMS_ITS | Encounter Summary ---
Author Organization [facility] Home Care Servic es Address [address] [place] [address] Phone Care Team Providers Care Pad Machine Feeder Name Role Phone Cherelle Corcoran MD Primary Care Pro vider Mark Queen MD Unavailable [phone] Reason for Visit * Auth/Cert Specialty Diagnoses / Procedures Referred By Maryse t Referred To Contact Referral ID Status Reason Start Date Expiration Date Visits Re quested Visits Authorized [id number] 1 1 Encounter Details Date Type Department Care Team (Late st Contact Info) Description 01/13/2020 Home Care Visit [facility] Home Health - [address] [address] [address] [place] [address] Maddie Rojas, RN CASE COMMUNICATION Social History Tobacco Use Types Packs/Day Years Used Date Smoking Tobacco: Never Smokeless Tobacco: Never Alcohol Use Standard Drinks/Week Comments Not Currently 0 (1 standard drink = 0.6 oz pur e alcohol) PHQ-2 Answer Date Recorded PHQ-2 Score 2 01/04/2020 Comments No Sex and Gender Information Value Date Recorded Sex Assigned at Not on file Legal Sex Female 9:03 AM TICKET MANAGER Gender Identity Female 02/08/2020 6:39 PM CDT Sexual Orientation Not on file documented as of this encounter Plan of Treatment Upcoming Encounters Date Type Department Care Team (Latest Contact Info) Description 07/13/2024 9:00 AM TICKET MANAGER Hospital Encounter [facility] GI Lab [address] [place] [address] Jaya Grier MD [address] [facility] [address] [place] [address] 07/13/2024 9:00 AM TICKET MANAGER - 07/13/2024 9:30 AM TICKET MANAGER Surgery [facility] Lab [address] [place] [address] Jaya Grier MD [address] [facility] [address] [place] [address] ESOPHAGOGASTRODUODENOSCOPY Scheduled Procedures Name Priority Associated Diagnoses Date/Ti me ESOPHAGOGASTRODUODENOSCOPY Anemia, unspecified type Gastritis without bleeding, unspecified chronicity, unspecified gastritis type 07/13/2024 9:00 AM TICKET MANAGER COLONOSCOPY Iron deficiency anemia due to chronic blood loss documented as of this encounter Visit Diagnoses Not on filedocumented in this encounter Additional Health Concerns Infection Onset Date Last Indicated Resolved Time MRSA 01/06/2020 01/06/2020 02/06/2021 5:00 AM CDT documented as of this encounter Care Teams Pad Machine Feeder Relationship Specialty Start Date End Date Cherelle Corcoran MD PCP - General Family Medicine 08/30/19 Mark Queen MD Consulting Physician Infectious Diseases 01/10/20 documented as of this encounter
--- OUTSIDE RECORDS SUMMARY | 2024-07-04 04:23 | XMS_ITS | Encounter Summary ---
Author Organization [facility] Healthcare Address [address] [place] [address] Care Team Providers Care Family Day Care Worker Name Role Phone Cherelle Corcoran MD Primary Care Pro vider Encounter Details Date Type Department Care Team (Late st Contact Info) Description 01/06/2020 12:28 PM CDT Anesthesia Event [facility] Operating Room [address] [place] [address] [place] [id number] [id number] Anesthesia Record Procedure Summary Procedure Name Responsible Anesthesiologist Anesthesia Start Time Anesthesia Stop Time AMPUTATION 4th toe right foot with wound debridement and bone biopsy. (Right: Foot) Nilson Marrero MD 01/06/20 1228 01/06/20 131 4 Events Date Time Event Comment 01/06/2020 1216 1228 An Start 1228 An Start Data 1229 In Room 1232 Start Supplemental O2 1233 An Induction The patient was reevaluated immediately before moderate or deep sedation use and before anesthesia induction. 1237 Proc Start 1237 Anesthesia Ready 1242 Incision Start 1305 Proc Fin 1309 an stop data 1309 Out of Room 1314 Handoff to RN I completed my handoff [...] disposition at the time of handoff: PACU 1314 An Stop Meds Name Total propofol 40 mg propofol 94.22 mg lidocaine 2 % PF 60 mg sodium chloride 0.9% infusion 600 mL * Agents Name O2 * Blood No blood administrations on file. Lines, Drains, and Airways Type Details Placement Removal Peripheral IV Placement Date: 01/04/20; Placement Time: 1919; Catheter Size: 22 G; Orientation: Distal, Left, Posterior; Location: Forearm; Site Prep: Alcohol; Insertion Attempts: 2; Removal Date: 01/09/20; Removal Time: 1717; Removal Reason: Per protocol 01/04/201919 by Maliha Sidhu RN 01/09/208 by Claudia Nguyen RN RETIRED Wound 01/04/20; 2008; Yes; Ulceration (non-pressure ulcer); Right; Toe (Comment which one); right great toe, extending in between all 5 toes; 01/09/22 01/04/202008 by Claudia Nguyen RN 01/09/22 0000 by Leslie Bahena RN RETIRED Surgical Site 01/06/20; 1250; Ri ght; Foot; 02/13/20 01/06/20 1250 by Brittney Teresa RN 02/13/20 0000 by Brigid Keenan RN documented in this encounter Social History [...] on file 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 (Right Foot) Diagnosis: (osteomylitis) Provider: Anat Pelayo DPM Responsible Provider: Nilson Marrero MD Anesthesia Type: MAC ASA Status: 3 Anesthesia Type: MAC Last vitals BP 132/69 Pulse 78 Temp 36.4 ??C (97.6 ??F) (Temporal) Resp 20 SpO2 98% Anesthesia Post Evaluation Patient location during evaluation: PACU Patient participation: complete - patient participated Level of consciousness: fully awake Pain management: satisfactory to patient Airway patency: adequate Anesthetic complications: no Cardiovascular status: acceptable Respiratory status: acceptable Hydration status: acceptable Pt is: normothermic Nausea/Vomiting status: none * Anesthesia Preprocedure Evaluation - Nilson Marrero MD - 01/06/2020 8:03 AM CDT Images from the original note were not included. Anesthesia Evaluation Barbara Chakraborty is a 69 y.o. female Procedure(s): AMPUTATION 4th toe right foot with bone biopsy BIOPSY - BONE * No Diagnosis Codes entered * HISTORY Past Medical History Information obtained from: patient and chart. Neurological Neuro/Psych system: negative Cardiovascular + Hypertension Respiratory Respiratory system: negative Hepatic / Heme Hepatic/Heme system: negative Gastrointestinal GI system: negative Renal / Renal/ system: negative Endocrine / Other + Diabetes mellitus - Diabetes type 2. + Infectious disease - cellulitis and wound infection. Functional Capacity Functional capacity: <4 METs Patient Active Problem List Diagnosis ??? Schizophrenia (CMS/HCC) ??? Diabetic neuropathy (CMS/HCC) ??? Uncontrolled type 2 diabetes mellitus with hyperglycemia (CMS/HCC) ??? Ulcer of toe of right foot, with fat layer exposed (CMS/HCC) ??? Diabetes (CMS/HCC) ??? Acute osteomyelitis of toe of right foot (CMS/HCC) ??? Essential hypertension Past Medical History: Diagnosis Date ??? Arthritis ??? Depression ??? Diabetic neuropathy (CMS/HCC) ??? Hypertension ??? Schizophrenia ([facility]/HCC) Past Surgical History: Procedure Laterality Date ??? SECTION OB History No obstetric history on file. No Known Allergies Med List Status: Nurse Complete Set By: Claudia Nguyen RN at 01/04/2020 6:49 PM Taking? Last Dose Start Date End Date Provider ciprofloxacin (CIPRO) 500 mg tablet () 01/04/2020 12/22/19 01/05/20 Guy Walsh MD Take 1 tablet (500 mg total) by mouth 2 (two) times a day for 14 days gabapentin (NEURONTIN) 400 mg capsule 01/04/2020 12/09/19 -- Cherelle Corcoran MD Take 1 capsule (400 mg total) by mouth 3 (three) times a day insulin glargine (LANTUS,BASAGLAR) 100 unit/mL (3 mL) insulin pen -- -- Historical Provider, insulin syringe-needle U-100 (BD Insulin Syringe Ultra-Fine) 1 mL 31 gauge x 5/16 syringe 09/12/17 -- Historical Provider, lisinopriL (PRINIVIL,ZESTRIL) 10 mg tablet 01/04/2020 12/09/19 06/06/20 Cherelle Corcoran MD Take 1 tablet (10 mg total) by mouth daily pen needle, diabetic 32 gauge x 3/16 needle 08/19/17 -- Historical Provider, MD WEI LING ORAL -- -- Historical Provider, MD Harrison 2-Vivek 0.6 mg/0.1 mL (18 mg/3 mL) injection 01/04/2020 09/06/19 -- Cherelle Corcoran MD Inject 1.2 mg under the skin daily Current Facility-Administered Medications: ??? acetaminophen (TYLENOL) tablet 650 mg, 650 mg, oral, Q4H PRN ??? amLODIPine (NORVASC) tablet 5 mg, 5 mg, oral, Daily, 5 mg at 01/05/20 0828 ??? benzonatate (TESSALON) capsule 100 mg, 100 mg, oral, Q8H PRN, 100 mg at 01/06/20 0524 ??? bisacodyl EC (DULCOLAX EC) tablet 10 mg, 10 mg, oral, Daily PRN ??? ciprofloxacin (CIPRO) 400 mg/200 mL in dextrose 5% (premix) 400 mg, 400 mg, intravenous, Q12H SOL, Last Rate: 200 mL/hr at 01/05/202135, 400 mg at 01/05/202135 ??? dextrose gel in packet 15 g, 15 g, oral, Q15 Min PRN OR dextrose (D10W) 10% bolus 250 mL, 250 mL, intravenous, Q15 Min PRN ??? docusate sodium (COLACE) capsule 100 mg, 100 mg, oral, BID PRN ??? enoxaparin (LOVENOX) syringe 40 mg, 40 mg, subcutaneous, Daily-2100, 40 mg at 01/05/202135 ??? gabapentin (NEURONTIN) capsule 400 mg, 400 mg, oral, TID, 400 mg at 01/05/202135 ??? glucagon injection 1 mg, 1 mg, intramuscular, Q30 Min PRN ??? hydrALAZINE (APRESOLINE) injection 10 mg, 10 mg, intravenous, Q4H PRN ??? HYDROcodone-acetaminophen (NORCO) 5-325 mg per tablet 1 tablet, 1 tablet, oral, Q4H PRN, 1 tablet at 01/05/202005 ??? insulin glargine (LANTUS,BASAGLAR) pen injection 32 Units, 32 Units, subcutaneous, Nightly ??? insulin lispro (HumaLOG) pen injection 1-4 Units, 1-4 Units, subcutaneous, Nightly, 4 Units at 01/05/202144 ??? insulin lispro (HumaLOG) pen injection 1-7 Units, 1-7 Units, subcutaneous, TID with meals, 3 Units at 01/05/201711 ??? lisinopriL (PRINIVIL,ZESTRIL) tablet 10 mg, 10 mg, oral, Daily, 10 mg at 01/05/20 0828 ??? magnesium hydroxide (MILK OF MAGNESIA) 80 mg/mL (33.3 mg/mL as elemental magnesium) oral suspension 30 mL, 30 mL, oral, Daily PRN ??? metroNIDAZOLE (FLAGYL) 500 mg/100 mL in sodium chloride (premix) 500 mg, 500 mg, intravenous, Q8H SOL, Last Rate: 200 mL/hr at 01/06/20 0524, 500 mg at 01/06/20 0524 ??? mineral oil (FLEET MINERAL OIL) enema 1 enema, 1 enema, rectal, Daily PRN ??? ondansetron ODT (ZOFRAN-ODT) disintegrating tablet 4 mg, 4 mg, oral, Q6H PRN OR ondansetron(ZOFRAN) injection 4 mg, 4 mg, intravenous, Q6H PRN, 4 mg at 01/05/20 1358 ??? oxyCODONE (ROXICODONE) tablet 5 mg, 5 mg, oral, Q4H PRN, 5 mg at 01/05/20 0827 ??? potassium phosphates 12 mmol in sodium chloride 0.9% 250 mL IVPB, 12 mmol, intravenous, Once ??? sodium chloride 0.9% flush 0.5-20 mL, 0.5-20 mL, intra-catheter, Q8H, 10 mL at 01/04/202055 ??? sodium chloride 0.9% flush 0.5-20 mL, 0.5-20 mL, intra-catheter, PRN ??? vancomycin 750 mg/150 mL in sodium chloride 0.9% (premix) 750 mg, 750 mg, intravenous, Q24H, 750 mg at 01/05/202001 Social History Tobacco Use Smoking Status Never Smoker Smokeless Tobacco Never Used Substance and Sexual Activity Alcohol Use Not Currently Substance and Sexual Activity Drug Use Never Family History Problem Relation Age of Onset ??? Stomach cancer Father Vitals: 01/05/20 1610 01/05/20 2324 01/06/20 0714 BP: 135/67 117/53 133/62 Pulse: 78 77 89 Resp: Temp: 36.3 ??C (97.4 ??F) 36.8 ??C (98.2 ??F) 36 ??C (96.8 ??F) SpO2: 100% 95% 93% PT: 01/05/2020: 16.5 sec* INR: 01/05/2020: 1.4* APTT: 01/05/2020: 31 sec Hgb A1C: 12/14/2019: 11.6 %* CBC RBC: 01/06/2020: 2.75 M/cumm* RDW: No results found for requested labs within last 720 hours. MCHC: 01/06/2020: 32.0 g/dL* MCH: 01/06/2020: 29.5 pg MCV: 01/06/2020: 92.0 fL Hct: 01/06/2020: 25.3 %* Hgb: 01/06/2020: 8.1 g/dL* WBC: 01/06/2020: 15.7 K/cumm* MPV: 01/06/2020: 10.2 fL Platelets: 01/06/2020: 326 K/cumm RDW CV: 01/06/2020: 14.0 % RDW Sd: 01/06/2020: 47.1 fL BMP Glucose: 01/06/2020: 213 mg/dL* Calcium: 01/06/2020: 8.7 mg/dL Sodium: 01/06/2020: 135 mmol/L Potassium: 01/06/2020: 4.4 mmol/L CO2: 01/06/2020: 25 mmol/L Chloride: 01/06/2020: 102 mmol/L BUN: 01/06/2020: 17 mg/dL Creatinine: 01/06/2020: 0.93 mg/dL DOS Physical Exam Medical history, medications, and allergies reviewed. Attestation: This PAT evaluation 01/06/2020. Airway Exam: Mallampati: II Cervical ROM: FROM TM distance: >4 Jaw ROM: full Cardiovascular Exam: Rate: regular Rhythm: regular Pulmonary Exam: LCTA, bilat Current state: Patient's current state is cooperative. Anesthesia Plan ASA 3 Planned anesthesia: MAC Induction: Induction: intravenous. Postoperative Plan: Postoperative administration opioids intended. No postoperative mechanical ventilation intended. Informed Consent: Discussed plan with attending. Anesthesia plan and risks discussed with patient. [...] (Latest Contact Info) Description 07/13/2024 9:00 AM TAG MACHINE OPERATOR Hospital Encounter [facility] GI Lab [address] [place] [address] Jaya Grier MD [address] [place] [address] 07/13/2024 9:00 AM TAG MACHINE OPERATOR - 07/13/2024 9:30 AM TAG MACHINE OPERATOR Surgery [facility] GI Lab [address] [place] [address] Jaya Grier MD [address] [place] [address] ESOPHAGOGASTRODUODENOSCOPY Scheduled Procedures Name Priority Associated Diagnoses Date/Ti me ESOPHAGOGASTRODUODENOSCOPY Anemia, unspecified type Gastritis without bleeding, unspecified chronicity, unspecified gastritis type 07/13/2024 9:00 AM TAG MACHINE OPERATOR COLONOSCOPY Iron deficiency anemia due to chronic blood loss documented as of this encounter Visit Diagnoses Not on filedocumented in this encounter Administered Medications Inactive Administered Medications - up to 3 most recent administrations Medication Order MAR Action Action Date Dose Rate Site lidocaine (XYLOCAINE) 20 mg/mL (2 %) preservative free injection As needed, Starting on Thu01/06/20 at 1233, Anesthesia Intra-op Given 01/06/2020 12:33 PM CDT 60 mg propofoL (DIPRIVAN) IV intravenous, Continuous PRN, Starting on Thu01/06/20 at 1233, Anesthesia Intra-op New Bag 01/06/2020 12:33 PM CDT 50 mcg/kg/min 17.13 mL/hr propofoL (DIPRIVAN) IV intravenous, As needed, Starting on Thu01/06/20 at 1233, Anesthesia Intra-op Given 01/06/2020 12:33 PM CDT 40 mg sodium chloride 0.9% infusion 30 mL/hr, intravenous, Continuous, Starting on Thu01/06/20 at 1300, Pre-Op New Bag 01/07/2020 5:25 AM CDT 30 mL/hr 30 mL/hr Rate/Dose Verify 01/06/2020 12:28 PM CDT New Bag 01/06/2020 12:17 PM CDT 30 mL/hr 30 mL/hr documented in this encounter Care Teams Family Day Care Worker Relationship Specialty Start Date End Date Cherelle Corcoran MD PCP - General Family Medicine 08/30/19 documented as of this encounter
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
--- OUTSIDE RECORDS SUMMARY | 2024-07-04 04:23 | XMS_ITS | Encounter Summary ---
Author Organization [facility] Care [facility] es Address [address] [place] [address] Phone Care Team Providers Care Gauger Delivery Name Role Phone Cherelle Corcoran MD Primary Care Pro vider Mark Queen MD Unavailable [phone] Reason for Visit * Auth/Cert Specialty Diagnoses / Procedures Referred By Maryse lama Referred To Contact Referral ID Status Reason Start Date Expiration Date Visits Re quested Visits Authorized [id number] 1 1 Encounter Details Date Type Department Care Team (Late st Contact Info) Description 01/11/[address] 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 Gender Identity Female 02/08/2020 6:39 PM CDT Sexual Orientation Not on file documented as of this encounter Plan of Treatment Upcoming Encounters Date Type Department Care Team (Latest Contact Info) Description 07/13/2024 9:00 AM HOLLOW HANDLE KNIFE ASSEMBLER Hospital Encounter [facility] GI Lab [address] [place] [address] Jaya Grier MD [address] [place] [address] 07/13/2024 9:00 AM HOLLOW HANDLE KNIFE ASSEMBLER - 07/13/2024 9:30 AM HOLLOW HANDLE KNIFE ASSEMBLER Surgery [facility] GI Lab [address] [place] [address] Jaya Grier MD [address] [place] [address] ESOPHAGOGASTRODUODENOSCOPY Scheduled Procedures Name Priority Associated Diagnoses Date/Ti me ESOPHAGOGASTRODUODENOSCOPY Anemia, unspecified type Gastritis without bleeding, unspecified chronicity, unspecified gastritis type 07/13/2024 9:00 AM HOLLOW HANDLE KNIFE ASSEMBLER COLONOSCOPY Iron deficiency anemia due to chronic blood loss documented as of this encounter Visit Diagnoses Not on filedocumented in this encounter Additional Health Concerns Infection Onset Date Last Indicated Resolved Time MRSA 01/06/2020 01/06/2020 02/06/2021 5:00 AM CDT documented as of this encounter Care Teams Gauger Delivery Relationship Specialty Start Date End Date Cherelle Corcoran MD PCP - General Family Medicine 08/30/19 Mark Queen MD Consulting Physician Infectious Diseases 01/10/20 documented as of this encounter
--- OUTSIDE RECORDS SUMMARY | 2024-07-04 04:23 | XMS_ITS | Encounter Summary ---
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 8 PRN visits for additional teaching, line care, labs or other symptom management. Maintain IV access PICC Line with 10ml normal saline and 5ml heparin 50units/5ml for patency per established protocol. Vancomycin 1.75gm (2 x 875mg/Sterile Water 35mL), infuse 2 x 875mg/35mL syringes intravenously over47 minutes per syringe every 24 hours by [place] 60 pump with F45 tubing. NOTE: DOSE EQUALS TWO SYRINGES LOT 6 weeks ~ 02/23/20 LABS - please check a CMP, CBC with dif, ESR and Vancomycin trough every Thursday and check a BMP andvancomycin trough every . First lab draw due before the home dose on Thursday01/13/20 - Vancomycin trough and BMP on Thursday01/13/20. Then start Thursday/ labs on Thursday01/16/20 Please fax lab results to Dr. Gallo at [phone] and to [facility] at [phone] Enroll patient in vancomycin protocol. Electronically signed by Brigid Sheffield [facility] at 01/12/2020 10:16 AM CDT documented in this encounter Miscellaneous Notes * Addendum Note - Crow Weir MLT - 01/12/2020 10:12 AM CDTAddended by: CROW WEIR on: 01/13/2020 02:36 PM Modules accepted: Orders * Addendum Note - Crow Weir MLT - 01/12/2020 10:12 AM CDTAddended by: CROW WEIR on: 01/13/2020 02:36 PM Modules accepted: Orders * Addendum Note - Crow Weir MLT - 01/12/2020 10:12 AM CDTAddended by: CROW WEIR on: 01/13/2020 02:37 PM Modules accepted: Orders * Addendum Note - Crow Weir MLT - 01/12/2020 10:12 AM CDTAddended by: CROW WEIR on: 01/13/2020 02:37 PM Modules accepted: Orders * Addendum Note - Crow Weir MLT - 01/12/2020 10:12 AM CDTAddended by: CROW WEIR on: 01/13/2020 02:37 PM Modules accepted: Orders * Addendum Note - Crow Weir MLT - 01/12/2020 10:12 AM CDTAddended by: CROW WEIR on: 01/13/2020 02:43 PM Modules accepted: Orders * Addendum Note - Crow Weir MLT - 01/12/2020 10:12 AM CDTAddended by: CROW WEIR on: 01/13/2020 02:44 PM Modules accepted: Orders * Addendum Note - Crow Weir MLT - 01/12/2020 10:12 AM CDTAddended by: CROW WEIR on: 01/13/2020 02:44 PM Modules accepted: Orders * Addendum Note - Crow Weir MLT - 01/12/2020 10:12 AM CDTAddended by: CROW WEIR on: 01/13/2020 02:44 PM Modules accepted: Orders * Addendum Note - Crow Weir MLT - 01/12/2020 10:12 AM CDTAddended by: CROW WEIR on: 01/13/2020 02:44 PM Modules accepted: Orders documented in this encounter Plan of Treatment Upcoming Encounters Date Type Department Care Team (Latest Contact Info) Description 07/13/2024 9:00 AM EQUIPMENT MECHANIC SPECIALIST Hospital Encounter [facility] [address] [place] [address] Jaya Grier MD [address] [place] [address] [address] [place] [address] 07/13/2024 9:00 AM EQUIPMENT MECHANIC SPECIALIST - 07/13/2024 9:30 AM EQUIPMENT MECHANIC SPECIALIST Surgery [facility] [address] [place] [address] Jaya Grier MD [address] [place] [address] DR [address] [place] [address] ESOPHAGOGASTRODUODENOSCOPY Scheduled Procedures Name Priority Associated Diagnoses Date/Ti me ESOPHAGOGASTRODUODENOSCOPY Anemia, unspecified type Gastritis without bleeding, unspecified chronicity, unspecified gastritis type 07/13/2024 9:00 AM EQUIPMENT MECHANIC SPECIALIST COLONOSCOPY Iron deficiency anemia due to chronic blood loss documented as of this encounter Visit Diagnoses Diagnosis Acute osteomyelitis of toe of right foot (HCC)- Primary Anemia, unspecified type Gastritis without bleeding, unspecified chronicity, unspecified gastritis type documented in this encounter Discontinued Medications Medication Sig Discontinue Reason Start Date End Da te vancomycin 1,000 mg/200 mL piggybackIndications:Sk in/Soft Tissue Infection Infuse 200 mL (1,000 mg total) into a venous catheter every 12 (twelve) hours Pharmacy to redose and manage level Dose adjustment 01/10/2020 01/12/2020 documented as of this encounter Historical Medications * This list may reflect changes made after this encounter. vancomycin IVBP Infuse 1,750 mg into a venous catheter daily Patient is to infuse 2 syringes at 35 ml (2 x 875mg = 1750mg) each for a total of 70 ml one time every 24 hours 01/12/2020 01/24/2020 added in this encounter Additional Health Concerns Infection Onset Date Last Indicated Resolved Time MRSA 01/06/2020 01/06/2020 02/06/2021 5:00 AM CDT documented as of this encounter Care Teams Lamination Builder Relationship Specialty Start Date End Date Cherelle Corcoran MD PCP - General Family Medicine 08/30/19 Mark Gallo MD Consulting Physician Infectious Diseases 01/10/20 documented as of this encounter
--- OUTSIDE RECORDS SUMMARY | 2024-07-04 04:24 | XMS_ITS | Encounter Summary ---
Author Organization [facility] Address [address] [place] [address] Care Team Providers Care Page Makeup System Operator Name Role Phone Cherelle Corcoran MD Primary Care Pro vider Encounter Details Date Type Department Care Team (Late st Contact Info) Description 11/22/[address] [facility] Vascular and Vein Surgery [address] [place] [address] Guy Walsh MD [address] [place] [address] [address] [place] [address] Social History Tobacco Use Types Packs/Day Years Used Date Smoking Tobacco: Never Smokeless Tobacco: Never Alcohol Use Standard Drinks/Week Comments Not Currently 0 (1 standard drink = 0.6 oz pur e alcohol) PHQ-2 Answer Date Recorded PHQ-2 Score 0 08/30/2019 Comments No Sex and Gender Information Value Date Recorded Sex Assigned at Not on file Legal Sex Female 9:03 AM COUNTER MAKER Gender Identity Female 02/08/2020 6:39 PM CDT Sexual Orientation Not on file documented as of this encounter Miscellaneous Notes * Telephone Encounter - Pham Choi MA - 11/28/2019 11:54 AM CDT Called [facility] back again today after talking to Dr. Walsh. I LVM for her to call the office back in regards to Ms. Chakraborty. * Telephone Encounter - Silvia Han - 11/22/2019 1:48 PM CDT Home health [facility]: Lottie, #[phone]. HH nurse called and explained that she believes the pt's wounds are getting worse. She has a order for dry dressings and the pt has been applying peroxide andbetadine. Lottie wants to know if she should be doing more for the pt. documented in this encounter Plan of Treatment Upcoming Encounters Date Type Department Care Team (Latest Contact Info) Description 07/13/2024 9:00 AM COUNTER MAKER Hospital Encounter [facility] [address] [place] [address] Jaya Grier MD [facility] [facility] [address] [place] [address] 07/13/2024 9:00 AM COUNTER MAKER - 07/13/2024 9:30 AM COUNTER MAKER Surgery [facility] [address] [place] [address] Jaya Grier MD [facility] [facility] [address] [place] [address] ESOPHAGOGASTRODUODENOSCOPY Scheduled Procedures Name Priority Associated Diagnoses Date/Ti al ESOPHAGOGASTRODUODENOSCOPY Anemia, unspecified type Gastritis without bleeding, unspecified chronicity, unspecified gastritis type 07/13/2024 9:00 AM COUNTER MAKER COLONOSCOPY Iron deficiency anemia due to chronic blood loss documented as of this encounter Visit Diagnoses Not on filedocumented in this encounter Care Teams Page Makeup System Operator Relationship Specialty Start Date End Date Cherelle Corcoran MD PCP - General Family Medicine 08/30/19 documented as of this encounter
--- OUTSIDE RECORDS SUMMARY | 2024-07-04 04:24 | XMS_ITS | Encounter Summary ---
Author Organization [facility] Address [address] [place] [address] Care Team Providers Care Various Exceptionalities Teacher Name Role Phone Cherelle Corcoran MD Primary Care Pro vider Mark Queen MD Unavailable [phone] Xenia Padilla LPN Unavailable [phone] Sarahy Schmidt LPN Unavailable [phone] Brandie Callejas Unavailable Unavail able Xenia Padilla LPN Unavailable [phone] Samples, Melania Joel RN Unavailable Anam Costa LCSW Unavailable Unavailabl e Samples, Melania Joel RN Unavailable Rudolph Welch MD Unavailable Markie Ryan MD Unavailable [phone] Nadege Ramírez RN Unavailable [phone] Dulce Vega RN Unavailable Jimbo Strauss MD Unavailable [phone] Jaya Grier MD Unavailable Encounter Details Date Type Department Care Team (Late st Contact Info) Description 12/26/2019 Telephone [facility] Nutrition and Diabetic Education 1 [facility] [id number] [place] [id number] Anastasia Leblanc, RN Social History Tobacco Use Types Packs/Day Years Used Date Smoking Tobacco: Never Smokeless Tobacco: Never Alcohol Use Standard Drinks/Week Comments Not Currently 0 (1 standard drink = 0.6 oz pur e alcohol) PHQ-2 Answer Date Recorded PHQ-2 Score 0 08/30/2019 Comments No Sex and Gender Information Value Date Recorded Sex Assigned at Not on file Legal Sex Female 9:03 AM MARRIAGE COUNSELOR MINISTER Gender Identity Female 02/08/2020 6:39 PM CDT Sexual Orientation Not on file documented as of this encounter Plan of Treatment Upcoming Encounters Date Type Department Care Team (Latest Contact Info) Description 07/13/2024 9:00 AM MARRIAGE COUNSELOR MINISTER [facility] [address] [place] [phone] Jaya Grier MD [address] [place] [address] [address] [place] [address] 07/13/2024 9:00 AM MARRIAGE COUNSELOR MINISTER - 07/13/2024 9:30 AM MARRIAGE COUNSELOR MINISTER [facility] [address] [place] [address] Jaya Grier MD [facility] [address] [place] [address] ESOPHAGOGASTRODUODENOSCOPY Scheduled Procedures Name Priority Associated Diagnoses Date/Ti me ESOPHAGOGASTRODUODENOSCOPY Anemia, unspecified type Gastritis without bleeding, unspecified chronicity, unspecified gastritis type 07/13/2024 9:00 AM MARRIAGE COUNSELOR MINISTER COLONOSCOPY Iron deficiency anemia due to chronic blood loss documented as of this encounter Visit Diagnoses Not on filedocumented in this encounter Additional Health Concerns Infection Onset Date Last Indicated Resolved Time MRSA 01/06/2020 01/06/2020 02/06/2021 5:00 AM CDT COVID: Suspected 12/10/2020 12/10/2020 12/24/2020 3:05 AM CDT COVID19 08/13/2021 08/13/2021 08/24/2021 3:05 AM MARRIAGE COUNSELOR MINISTER COVID: Recovered Comment:Added based on recent COVID infection. 08/24/2021 08/26/2021 12/22/2021 3:05 AM C DT COVID: Suspected Comment:11/15/2021 pt is covid recovered 11/15/2021 11/15/2021 11/15/2021 3:32 PM C DT COVID: Suspected 11/15/2021 11/16/2021 11/16/2021 1:45 AM CDT Human metapneumovirus, conta ct + droplet 11/16/2021 11/16/2021 11/30/2021 3:05 AM C DT COVID: Suspected 05/08/2022 05/08/2022 05/08/2022 4:26 PM MARRIAGE COUNSELOR MINISTER COVID: Suspected 06/19/2022 06/19/2022 06/19/2022 12:37 PM MARRIAGE COUNSELOR MINISTER COVID: Suspected 08/01/2022 08/01/2022 08/01/2022 2:28 PM MARRIAGE COUNSELOR MINISTER COVID: Suspected 10/02/2022 10/02/2022 10/02/2022 8:14 PM CDT MRSA Comment:Toe 11/08/22, 12/12/22 11/08/2022 12/12/2022 06/10/2023 3:05 AM MARRIAGE COUNSELOR MINISTER COVID: Suspected 12/08/2022 12/08/2022 12/08/2022 8:17 PM CDT COVID: Suspected 07/27/2023 07/27/2023 07/28/2023 12:57 AM MARRIAGE COUNSELOR MINISTER COVID: Suspected 10/29/2023 10/30/2023 10/30/2023 10:59 AM CDT 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 12/19/2023 12/19/2023 3:58 PM CDT 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 12/29/2023 06/26/2024 3:05 AM MARRIAGE COUNSELOR MINISTER COVID: Suspected 04/19/2024 04/19/2024 04/20/2024 12:44 AM CDT documented as of this encounter Care Teams Various Exceptionalities Teacher Relationship Specialty Start Date End Date Cherelle Corcoran MD PCP - General Family Medicine 08/30/19 Mark Queen MD Consulting Physician Infectious Diseases 01/10/20 Xenia Padilla LPN Lean Consultant 09/19/21 09/19/21 Sarahy Schmidt LPN [address] [place] [address] [address] [place] [address] ACO Care Diesel Plant Operator 11/27/21 12/25/21 Brandie Callejas Patient Millinery Blocker 06/20/22 06/22/22 Xenia Padilla LPN [address] [place] [address] [address] [place] [address] Lean Consultant 06/24/22 06/24/22 Samples, Melania Joel RN [address] [place] [address] [address] [place] [address] Lean Consultant 07/22/22 08/21/22 Anam Costa LCSW [address] [place] [address] [address] [place] [address] Hemmer Chainstitch 08/08/22 02/18/23 Samples, Melania oJel RN [address] [place] [address] [address] [place] [address] Lean Consultant 08/22/22 12/07/22 Rudolph Welch MD [address] [facility] [address] [place] [address] Consulting Physician Infectious Diseases 12/05/22 Markie Ryan MD [address] [facility] [address] [place] [address] Consulting Physician Nephrology 12/05/22 Nadege Ramírez RN [address] [place] [address] [address] [place] [address] Lean Consultant 01/20/23 02/23/23 Dulce Vega RN [address] [place] [address] [address] [place] [address] Lean Consultant 10/07/23 05/03/24 [place] [address] [facility] [address] [place] [address] Consulting Physician Nephrology 10/22/23 Jaya Grier MD [address] [facility] [address] [place] [address] Consulting Physician Gastroenterology 02/01/24 documented as of this encounter
--- OUTSIDE RECORDS SUMMARY | 2024-07-04 04:24 | XMS_ITS | Encounter Summary ---
Author Organization [facility] Healthcare Address [address] [place] [address] Care Team Providers Care Technical Support Intern Name Role Phone Cherelle Corcoran MD Primary Care Pro vider Reason for Referral * Diagnostic Imaging (Routine) - Closed Specialty Diagnoses / Procedures Referred By Contac t Referred To Contact Radiology Diagnoses Osteomyelitis of right foot, unspecified type (HCC) Procedures MRI Foot Right W WO Contrast Guy Walsh MD [address] [facility] [address] [address] Phone: tel: fax: [address] [address] Referral ID Status Reason Start Date Expiration Date Visits Re quested Visits Authorized [id number] Closed 12/22/2019 07/02/2021 1 1 Encounter Details Date Type Department Care Team (Latest Contact Info) Description 12/26/2019 8:33 PM CDT Hospital Encounter [facility] INTERIM Guy Walsh MD [address] [facility] [address] [place] [address] Osteomyelitis of right foot, unspecified type (CMS/HCC) Social History Tobacco Use Types Packs/Day Years Used Date Smoking Tobacco: Never Smokeless Tobacco: Never Alcohol Use Standard Drinks/Week Comments Not Currently 0 (1 standard drink = 0.6 oz pur e alcohol) PHQ-2 Answer Date Recorded PHQ-2 Score 0 08/30/2019 Comments No Sex and Gender Information Value Date Recorded Sex Assigned at Not on file Legal Sex Female 9:03 AM PHOTO CHECKER AND ASSEMBLER Gender Identity Female 02/08/2020 6:39 PM CDT Sexual Orientation Not on file documented as of this encounter Medications at Time of Discharge amino acids-protein hydr-fiber 15-90 gram-kcal/30 mL liquidIndications: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 Indications: low vitamin D levels 0 ciprofloxacin (CIPRO) 500 mg tablet Take 1 tablet (500 mg total) by mouth 2 (two) times a day for 14 days 28 tablet 12/22/2019 0 collagenase (SANTYL) ointmentIndications :Diabetic ulcer of toe of right foot associated with type 2 diabetes mellitus, with necrosis of bone (HCC) Apply topically daily 30 g 10/27/2019 0 gabapentin (NEURONTIN) 400 mg capsuleIndications: Other diabetic neurological complication associated with type 2 diabetes mellitus (HCC) Take 1 capsule (400 mg total) by mouth 3 (three) times a day 270 capsule 1 12/09/2019 0 insulin syringe-needle U-100 (BD Insulin Syringe Ultra-Fine) 1 mL 31 gauge x 5/16 syringe 3 times a day 09/12/2017 0 lisinopriL (PRINIVIL,ZESTRIL) 10 mg tabletIndications:E ssential hypertension Take 1 tablet (10 mg total) by mouth daily 30 tablet 5 12/09/2019 1 pen needle, diabetic 32 gauge x 3/16 needle Once a day 08/19/2017 0 syringe with needle, insulin (INSULIN SYRINGE-NEEDLE U-100 MISC) 3 times a day 09/12/2017 3 VALERIAN ROOT ORALIndications:rel axation Take 530 mg by mouth daily. Indications: relaxation 0 Victoza 2-Vivek 0.6 mg/0.1 mL (18 mg/3 mL) injectionIndication s:Uncontrolled type 2 diabetes mellitus with hyperglycemia (HCC) Inject 1.2 mg under the skin daily 6 mL 1 09/06/2019 0 documented as of this encounter Plan of Treatment Upcoming Encounters Date Type Department Care Team (Latest Contact Info) Description 07/13/2024 9:00 AM PHOTO CHECKER AND ASSEMBLER Hospital Encounter [facility] [address] [place] [address] Jaya Grier MD [address] [place] [address] DR GA[address] [place] [address] 07/13/2024 9:00 AM PHOTO CHECKER AND ASSEMBLER - 07/13/2024 9:[address] [facility] Surgery [facility] [address] [place] [address] Jaya Grier MD [facility] [facility] [address] [place] [address] ESOPHAGOGASTRODUODENOSCOPY Scheduled Procedures Name Priority Associated Diagnoses Date/Ti me ESOPHAGOGASTRODUODENOSCOPY Anemia, unspecified type Gastritis without bleeding, unspecified chronicity, unspecified gastritis type 07/13/2024 9:00 AM PHOTO CHECKER AND ASSEMBLER COLONOSCOPY Iron deficiency anemia due to chronic blood loss documented as of this encounter Procedures Procedure Name Priority Date/Time Associated Diagnosis Comments MRI FOOT RIGHT W WO CONTRAST Schedule Routine, Read Routine (OP Routine) 12/26/2019 8:45 PM CDT Osteomyelitis of right foot, unspecified type (CMS/HCC) documented in this encounter Results * MRI Foot Right W WO Contrast (12/26/2019 8:45 PM CDT) Anatomical Region Laterality Modality Lower Extremities Right Magnetic Reson ance 12/27/2019 10:3 3 AM CDT Narrative 12/27/2019 1:44 PM CDT Patient Name: SIXTO CHAKRABORTY ?Ordering Dr: Guy Walsh MD ?? D.O.B: 1950 ? Exam Date: 12/26/19 ?? 2044 ?? Age: 69 ?Sex: Female ? MR#: [id number] ?? Loc: ? RADIOLOGY REPORT ?? Order #[id number] ?? Magnetic Resonance Imaging ? MRI Foot Right W/WO Contrast ? Signed ?? EXAM DESCRIPTION: ?? MRI Foot Right W/WO Contrast ? REASON FOR STUDY: ??Wounds to dorsal/plantar surfaces between all toes. ? Wounds began in July shortly after getting nails trimmed. ? TECHNIQUE: ??Multiplanar, multisequence MRI of the ??right foot was performed ?? before and after contrast. ? CONTRAST TYPE/DOSE: ??11 cc Dotarem injected through the left antecubital fossa ?? through a 23 gauge IV ? COMPARISON: ?? None ? FINDINGS: ? Bones: ??Slightly fragmented appearance of the 1st distal phalanx, likely ?? related to old injury. ??There is mild bone marrow edema at the 1st ?? interphalangeal joint. ??There is subchondral cystic change about the 1st ?? metatarsal head-likely degenerative in nature. ??There is T1 marrow signal ?? replacement about the 4th proximal phalanx with associated bone marrow edema. ? Findings are concerning for osteomyelitis in the appropriate setting. ??There ?? are similar but less pronounced findings at the 4th middle phalanx. ??The 4th ?? distal phalanx demonstrate T1 marrow signal, however, has edema. ??This is ?? likely reactive. ??There is additional bone marrow edema noted at the 2nd ?? proximal and middle phalanx which is nonspecific and may be related to ?? osteitis. ? Articulations: ??There is scattered osteoarthritis, most severe at the 1st ?? metatarsophalangeal joint with subchondral cystic change about the 1st ?? metatarsal head and opposing medial hallux sesamoid. ? Soft Tissues: ??Diffuse nonspecific soft tissue edema centered over dorsum of ?? the foot. ??Diffuse plantar intramuscular edema. ??Small amount of ?? intermetatarsal bursal fluid is noted at the 1st web space. ? Tendons: ??The flexor and extensor tendons are intact. ? Lisfranc Ligament: ??Intact. ? Post Contrast Findings: ??Enhancement is noted at the 1st distal phalanx, 2nd ?? proximal, middle, and distal phalanges, 4th proximal mid and distal phalanx. ? A central portion of the 4th proximal phalanx appears to be nonenhancing which ?? may be reflective of an area of chronic osteomyelitis. ??No identifiable fluid ?? collection or abscess. ? Other: ??No other finding. ? IMPRESSION: ? 1. ?? Abnormal T1 marrow signal within the 4th proximal and middle phalanx with ?? associated edema. ??Findings are compatible with osteomyelitis. ??Given ?? appearance of central nonenhancement within the 4th proximal phalanx, this may ?? be related to an acute on chronic process. ??Recommend correlation with ?? physical examination and clinical history. ? 2. ??Bone marrow edema is also noted about the 1st distal and 2nd proximal ?? through distal phalanges without T1 signal replacement. ??Findings are likely ?? related to reactive osteitis though early osteomyelitis is not excluded in the ?? appropriate clinical setting and ulceration. ? 3. 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 cystic change. ? THIS IS AN ELECTRONICALLY VERIFIED FINAL REPORT ?? 12/27/2019 1:44 PM - Electronically signed by Pily Phan ?? Pily Phan ? BG ?? D: ??12/27/2019 1:44 PM ?? T: ? Report ID: [id number] ?? Reading Location: ??[id number] ? REPORT ELECTRONICALLY SIGNED IN OTHER VENDOR SYSTEM ?? Resulting Agency Comment O Procedure Note Pily Phan MD - 12/27/2019 Patient Name: David CHAKRABORTY Dr: Guy Walsh MD D.O.B: 1950 Exam Date: 12/26/192044 Age: 69 Sex: Female MR#: [id number] [id number] Order #[id number] Magnetic Resonance Imaging MRI Foot Right W/WO Contrast Signed EXAM DESCRIPTION: MRI Foot Right W/WO Contrast REASON FOR STUDY: Wounds to dorsal/plantar surfaces between all toes. Wounds began in July shortly after getting nails trimmed. TECHNIQUE: Multiplanar, multisequence MRI of the right foot wasperformed before and after contrast. CONTRAST TYPE/DOSE: 11 cc Dotarem injected through the left antecubitalfossa through a 23 gauge IV COMPARISON: None FINDINGS: Bones: Slightly fragmented appearance of the 1st distal phalanx, likely related to old injury. There is mild bone marrow edema at the 1st interphalangeal joint. There is subchondral cystic change about the 1st metatarsal head-likely degenerative in nature. There is T1 marrow signal replacement about the 4th proximal phalanx with associated bone marrowedema. Findings are concerning for osteomyelitis in the appropriate setting.There are similar but less pronounced findings at the 4th middle phalanx. The4th distal phalanx demonstrate T1 marrow signal, however, [...] Diffuse nonspecific soft tissue edema centered over dorsumof the foot. Diffuse plantar intramuscular edema. Small amount of intermetatarsal bursal fluid is noted at the 1st web space. Tendons: The flexor and extensor tendons are intact. Lisfranc Ligament: Intact. Post Contrast Findings: Enhancement is noted at the 1st distal phalanx,2nd proximal, middle, and distal phalanges, 4th proximal mid and distalphalanx. A central portion of the 4th proximal phalanx appears to be nonenhancingwhich may be reflective of an area of chronic osteomyelitis. No identifiablefluid collection or abscess. Other: No other finding. IMPRESSION: 1. Abnormal T1 marrow signal within the 4th proximal and middle phalanxwith associated edema. Findings are compatible with osteomyelitis. Given appearance of central nonenhancement within the 4th proximal phalanx,this may be related to an acute on chronic process. Recommend correlation with physical examination and clinical history. 2. Bone marrow edema is also noted about the 1st distal and 2nd proximal through distal phalanges without T1 signal replacement. Findings arelikely related to reactive osteitis though early osteomyelitis is not excludedin the appropriate clinical setting and ulceration. 3. 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 THIS IS AN ELECTRONICALLY VERIFIED FINAL REPORT 12/27/2019 1:44 PM - Electronically signed by Pily BROWNE T: Report ID: [id number] Reading Location: [id number] REPORT ELECTRONICALLY SIGNED IN OTHER VENDOR SYSTEM Guy Walsh MD IMG MRI PROCEDURES Final Re sult documented in this encounter Visit Diagnoses Diagnosis Osteomyelitis of right foot, unspecified type (HCC) Anemia, unspecified type Gastritis without bleeding, unspecified chronicity, unspecified gastritis type documented in this encounter Care Teams Technical Support Intern Relationship Specialty Start Date End Date Cherelle Corcroan MD PCP - General Family Medicine 08/30/19 documented as of this encounter
--- OUTSIDE RECORDS SUMMARY | 2024-07-04 04:24 | XMS_ITS | Encounter Summary ---
Author Organization [facility] Healthcare Address [address] [place] [address] Care Team Providers Care Trade Marker Name Role Phone Cherelle Corcoran MD Primary Care Pro vider Encounter Details Date Type Department Care Team (Late st Contact Info) Description 01/04/2020 5:30 PM CDT Lab [address] [phone] Tasha Dick MD [address] [place] [address] [place] [address] Discharge Disposition: Discharge to home or self [...] on file Legal Sex Female 9:03 AM IRISH MOSS BLEACHER Gender Identity Female 02/08/2020 6:39 PM CDT Sexual Orientation Not on file documented as of this encounter Discharge Disposition Disposition Code Departure Means Destination Discharge to home or self care documented in this encounter Plan of Treatment Upcoming Encounters Date Type Department Care Team (Latest Contact Info) Description 07/13/2024 9:00 AM IRISH MOSS BLEACHER Hospital Encounter [facility] [address] [place] [address] Jaya Grier MD [address] [facility] [address] [place] [address] 07/13/2024 9:00 AM IRISH MOSS BLEACHER - 07/13/2024 9:30 AM IRISH MOSS BLEACHER Surgery [facility] [address] [place] [address] Jaya Grier MD [address] [facility] [address] [place] [address] ESOPHAGOGASTRODUODENOSCOPY Scheduled Procedures Name Priority Associated Diagnoses Date/Ti me ESOPHAGOGASTRODUODENOSCOPY Anemia, unspecified type Gastritis without bleeding, unspecified chronicity, unspecified gastritis type 07/13/2024 9:00 AM IRISH MOSS BLEACHER COLONOSCOPY Iron deficiency anemia due to chronic blood loss documented as of this encounter Procedures Procedure Name Priority Date/Time Associated Diagnosis Comments EGFR Routine 01/04/2020 5:29 PM CDT DIFFERENTIAL AUTO Routine 01/04/2020 5:2 9 PM CDT CBC WITH AUTO DIFFERENTIAL Routine 01/04/2020 5:29 PM CDT BLOOD CULTURE Routine 01/04/2020 5:29 PM CDT BLOOD CULTURE Routine 01/04/2020 5:29 PM CDT ERYTHROCYTE SEDIMENTATION RATE Routine 01/04/2020 5:29 PM CDT COMPREHENSIVE METABOLIC PANEL Routine 01/04/2020 5:29 PM CDT documented in this encounter Results * eGFR (01/04/2020 5:29 PM CDT) [facility] Signature eGFR 81 mL/min/1.7 3 m2 [facility] ([place]) Comment: Interpretive Data Reference Interval Normal ?>/= 90 mL/min/1.73m2 Mildly decreased* ? 60 - 89 mL/min/1.73m2 Mildly to moderately decreased ?45 - 59 mL/min/1.73m2 Moderately to severely decreased ??30 - 44 mL/min/1.73m2 Severely decreased ?15 - 29 mL/min/1.73m2 Kidney Failure ?< 15 ??mL/min/1.73m2 *Relative to young adult level If -Slovenian multiply value by 1.16. Estimated glomerular filtration [...] was last reviewed 2016. Blood specimen (specimen) 01/04/2020 5:29 PM CDT 01/04/2020 5:46 PM CDT us Tasha Dick MD LAB BLOOD ORDERABLES Final R esult NILSA [facility] 1 [facility] Department [place] [address] * (ABNORMAL) Differential, auto (01/04/2020 5:29 PM CDT) Neutrophil abs 15.2(H) 1.7 - 6.5 K/cumm [facility] ([place]) Imm gran abs 0.2(H) 0.0 - 0.1 K/cumm [facility] ([place]) Lymphocyte abs 1.7 0.8 - 3.3 K/cumm [facility] ([place]) Monocyte abs 1.2(H) 0.2 - 0.8 K/cumm [facility] ([place]) Eosinophil abs 0.1 0.0 - 0.5 K/cumm [facility] ([place]) Basophil abs 0.0 0.0 - 0.1 K/cumm [facility] ([place]) Neutrophil pct 82.9 % [facility] ([place]) Comment: Interpretive [...] was last revised on 2017. Lymphocyte pct 9.2 % [facility] ([place]) Comment: Interpretive Data Percent cell count reference ranges are not reported, since discordance with absolute values may lead to misinterpretation of CBC data. Current Interpretive Data was last revised on 2017. Monocyte pct 6.5 % [facility] ([place]) Comment: Interpretive Data [...] last revised on 2017. Blood specimen (specimen) 01/04/2020 5:29 PM CDT 01/04/2020 5:46 PM CDT us Tasha Dick MD LAB BLOOD ORDERABLES Final R esult [facility] ([place]) 1 [facility] Department [place] [address] * Blood culture Blood Antecubital, right (01/04/2020 5:29 PM CDT) Report Final Report: No growth [facility] ([place]) Comment:Testing performed by : [facility], [address] [place]., [address] Blood specimen (specimen) (Antecubital, right) 01/04/2020 5:29 PM CDT 01/04/2020 9:10 PM CDT Narrative [facility] ([place]) - 01/09/2020 7:00 AM CDT 1. ?Blood cultures are incubated [...] organism identification may be performed using the Festicketigene Gram-Positive Blood Culture Assay. This assay detects microbial DNA in positive blood culture broth via hybridization of target DNA to capture oligonucleotides on a microarray. This assay has been cleared by the [place] Food and Drug Administration and its performance characteristics have been verified by the [facility] Microbiology Laboratory. 5. ?For questions about this culture, contact the Microbiology Laboratory at [phone]. Interpretive data was last revised on 2019. us Tasha Dick MD LAB MICROBIOLOGY - GENERAL O FARHAN Final Result [facility] ([place]) 1 [facility] Department [place] [address] * Blood culture Blood Antecubital, left (01/04/2020 5:29 PM CDT) Report Final Report: No growth [facility] ([place]) Comment:Testing performed by : [facility], [address] [place]., [address] Blood specimen (specimen) (Antecubital, left) 01/04/2020 5:29 PM CDT 01/04/2020 9:06 PM CDT Narrative [facility] ([place]) - 01/09/2020 7:00 AM CDT 1. ?Blood cultures are incubated [...] organism identification may be performed using the Festicketigene Gram-Positive Blood Culture Assay. This assay detects microbial DNA in positive blood culture broth via hybridization of target DNA to capture oligonucleotides on a microarray. This assay has been cleared by the [place] Food and Drug Administration and its performance characteristics have been verified by the [facility] Microbiology Laboratory. 5. ?For questions about this culture, contact the Microbiology Laboratory at [phone]. Interpretive data was last revised on 2019. us Tasha Dick MD LAB MICROBIOLOGY - GENERAL O LUZ MARIAERABLES Final Result [facility] ([place]) 1 [facility] Department [place] [address] * (ABNORMAL) Comprehensive metabolic panel (01/04/2020 5:29 PM CDT) Sodium 136 135 - 145 mmol/L [facility] ([place]) Potassium, pl 3.6 3.3 - 4.9 mmol/L [facility] ([place]) Chloride 98 97 - 110 mmol/L [facility]) CO2 26 22 - 32 mmol/L [facility] Anion gap 12 2 - 15 mmol/L [facility]) BUN 13 8 - 25 mg/dL [facility] ([place]) Creatinine 0.75 0.60 - 1.10 mg/dL [facility] ([place]) Glucose 189 70 - 199 mg/dL [facility] ([place] [...] 10.3 mg/dL [facility]) Bilirubin, total 0.6 0.1 - 1.2 mg/dL [facility] ([place]) Protein, pl 8.3 6.5 - 8.5 g/dL [facility] ([place]) Albumin 3.5 3.5 - 5.0 g/dL [facility] ([place]) Alk phos 156(H) 40 - 130 Units/L [facility] ([place]) ALT 24 7 - 45 Units/L [facility] AST 23 10 - 45 Units/L [facility] ([place] Blood specimen (specimen) 01/04/2020 5:29 PM CDT 01/04/2020 5:46 PM CDT us Tasha Dick MD LAB BLOOD ORDERABLES Final R esult [facility] ([place]) 1 [facility] Department [place] [address] * (ABNORMAL) CBC with auto differential (01/04/2020 5:29 PM CDT) WBC 18.3(H) 3.8 - 9.9 K/cumm [facility] ([place]) Hgb 10.2(L) 11.9 - 15.5 g/dL [facility] ([place] Hct 32.2(L) 35.6 - 45.5 % [facility] ([place]) Plt 470(H) 150 - 400 K/cumm [facility] ([place]) MPV 10.2 9.1 - 12.3 fL [facility] ([place]) RBC 3.47(L) 3.90 - 5.20 M/cumm [facility] ([place]) MCV 92.8 81.3 - 96.4 fL [facility] ([place] MCH 29.4 27.1 - 33.3 pg [facility] MCHC 31.7(L) 32.3 - 35.7 g/dL [facility] ([place] RDW CV 14.3 11.1 - 14.9 % [facility] RDW SD 48.1 35.7 - 48.1 fL [facility] ([place]) NRBC abs 0.00 0.00 - 0.01 K/cumm [facility] ([place]) Blood specimen (specimen) 01/04/2020 5:29 PM CDT 01/04/2020 5:46 PM CDT us Tasha Dick MD LAB BLOOD ORDERABLES Final R esult [facility] ([place]) 1 [facility] Department [place] [address] * (ABNORMAL) Erythrocyte sedimentation rate (01/04/2020 5:29 PM CDT) Pathologist [facility] Erythrocyte sedimentation rate 112(H) 1 - 30 mm/hr [facility] ([place]) Blood specimen (specimen) 01/04/2020 5:29 PM CDT 01/04/2020 5:46 PM CDT us Tasha Dick MD LAB BLOOD ORDERABLES Final R esult [facility] 1 [facility] Department [place] [address] documented in this encounter Visit Diagnoses Not on filedocumented in this encounter Care Teams Trade Marker Relationship Specialty Start Date End Date Cherelle Corcoran MD PCP - General Family Medicine 08/30/19 documented as of this encounter
--- OUTSIDE RECORDS SUMMARY | 2024-07-04 04:24 | XMS_ITS | Encounter Summary ---
Author Organization [facility] Address [address] [place] [address] Phone Care Team Providers Care Director Of Knowledge Management Name Role Phone Cherelle Corcoran MD Primary Care Pro vider Reason for Visit * Auth/Cert Specialty Diagnoses / Procedures Referred By Contac t Referred To Contact Referral ID Status Reason Start Date Expiration Date Visits Re quested Visits Authorized [id number] 1 1 Encounter Details Date Type Department Care Team (Late st Contact Info) Description 11/01/2019 Home Care Visit [facility] [address] [place] [address] [address] [place], [place] [id number] Barb Ochoa RN TRAVEL SCREENING CASE COMMUNICATION Social History [...] on file Legal Sex Female 9:03 AM INTERIOR DESIGNER Gender Identity Female 02/08/2020 6:39 PM CDT Sexual Orientation Not on file documented as of this encounter Plan of Treatment Upcoming Encounters Date Type Department Care Team (Latest Contact Info) Description 07/13/2024 9:00 AM INTERIOR DESIGNER Hospital Encounter [facility] [address] [place] [address] Jaya Grier MD [address] [place] [address] [address] [place] [address] 07/13/2024 9:00 AM INTERIOR DESIGNER - 07/13/2024 9:30 AM INTERIOR DESIGNER Surgery [facility] [address] [place] [address] Jaya Grier MD [facility] [address] [place] [address] ESOPHAGOGASTRODUODENOSCOPY Scheduled Procedures Name Priority Associated Diagnoses Date/Ti me ESOPHAGOGASTRODUODENOSCOPY Anemia, unspecified type Gastritis without bleeding, unspecified chronicity, unspecified gastritis type 07/13/2024 9:00 AM INTERIOR DESIGNER COLONOSCOPY Iron deficiency anemia due to chronic blood loss documented as of this encounter Visit Diagnoses Not on filedocumented in this encounter Care Teams Director Of Knowledge Management Relationship Specialty Start Date End Date Cherelle Corcoran MD PCP - General Family Medicine 08/30/19 documented as of this encounter
--- OUTSIDE RECORDS SUMMARY | 2024-07-04 04:24 | XMS_ITS | Encounter Summary ---
Author Organization [facility] Home Care Servic es Address [address] [place] [address] Phone Care Team Providers Care Aircraft Sales Representative Name Role Phone Cherelle Corcoran MD Primary Care Pro vider Reason for Visit * Reason Comments Wound Care * Auth/Cert Specialty Diagnoses / Procedures Referred By Contac t Referred To Contact Referral ID Status Reason Start Date Expiration Date Visits Re quested Visits Authorized [id number] 1 1 Encounter Details Date Type Department Care Team (Late st Contact Info) Description 11/30/2019 3:30 PM CDT Home Care Visit [facility] [address] [address] [address] [place] [address] Barb Ochoa, ALIREZA SN HOME VISIT Social History Tobacco [...] on file Legal Sex Female 9:03 AM FARROWING MANAGER Gender Identity Female 02/08/2020 6:39 PM CDT Sexual Orientation Not on file documented as of this encounter Last Filed Vital Signs Vital Sign Reading Time Taken Comments Blood Pressure 120/80 11/30/2019 12:15 PM CDT Pulse 74 11/30/2019 12:15 PM CDT Temperature 36.7 ??C (98.1 ??F) 11/30/2019 12:15 PM C DT Respiratory Rate 18 11/30/2019 12:15 PM CDT Oxygen Saturation 98% 11/30/2019 12:15 PM CDT Inhaled Oxygen Concentration - - Weight - - Height - - Body Mass Index - - documented in this encounter Plan of Treatment Upcoming Encounters Date Type Department Care Team (Latest Contact Info) Description 07/13/2024 9:00 AM FARROWING MANAGER Hospital Encounter [facility] [address] [place] [address] Jaya Grier MD [facility] [facility] [address] [place] [id number] 07/13/2024 9:00 AM FARROWING MANAGER - 07/13/2024 9:30 AM FARROWING MANAGER Surgery [facility] [address] [place] [address] Jaya Grier MD [address] [facility] [address] [place] [id number] ESOPHAGOGASTRODUODENOSCOPY Scheduled Procedures Name Priority Associated Diagnoses Date/Ti tn ESOPHAGOGASTRODUODENOSCOPY Anemia, unspecified type Gastritis without bleeding, unspecified chronicity, unspecified gastritis type 07/13/2024 9:00 AM FARROWING MANAGER COLONOSCOPY Iron deficiency anemia due to chronic blood loss documented as of this encounter Visit Diagnoses Not on filedocumented in this encounter Home Health Visit - Care Plan Visit Details Visit Type -SN Home Visit Discipline -Senior Care Problems Problem Description Start Date Status Goals Interve ntions Homebound Status Disciplines: Senior Care Patient's homebound status 10/23/2019 Active 1 goal linked to scheduled/documen bruno intervention 1 goal intervention scheduled/document ed in this visit Monitor patient's vital signs every home health visit Disciplines: Senior Care Monitor patient's vital signs every home health visit. 10/23/2019 Active 1 goal linked to scheduled/documen bruno intervention 1 goal intervention scheduled/document ed in this visit Infection Prevention Disciplines: Senior Care Infection Prevention 10/23/2019 Active 1 goal linked to scheduled/documen bruno intervention 1 goal intervention scheduled/document ed in this visit Fall Precautions/Saf ety Concerns Disciplines: Senior Care Alteration in safety 10/23/2019 Active 1 goal linked to scheduled/documen bruno intervention 1 goal intervention scheduled/document ed in this visit Pain Disciplines: Senior Care Alteration in comfort 10/23/2019 Active 1 goal linked to scheduled/documen bruno intervention 1 goal intervention scheduled/document ed in this visit Wound Risk of Infection Disciplines: Senior Care Risk of infections related to wounds 10/23/2019 Active 1 goal linked to scheduled/documen bruno intervention 1 goal intervention scheduled/document ed in this visit Wound Education and Management Disciplines: Senior Care 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 10/23/2019 Active 1 goal linked to scheduled/documen bruno intervention 2 goal interventions scheduled/document ed in this visit Wound Care Disciplines: Senior Care Wound care needed 10/23/2019 Active 1 goal linked to scheduled/documen bruno intervention 2 goal interventions scheduled/document ed in this visit Disease Management - Diabetes Disciplines: Senior Care Management of diabetes symptoms 10/23/2019 Active 1 goal linked to scheduled/documen bruno intervention 2 goal interventions scheduled/document ed in this visit Learning/Teachi ng Needs - Insulin Management Disciplines: Senior Care Lack of knowledge related to insulin management 10/23/2019 Active 1 goal linked to scheduled/documen bruno intervention 1 goal intervention scheduled/document ed in this visit Learning/Teachi ng Needs - Diabetes Disciplines: Senior Care Learning and teaching needs associated with diagnosis [...] visit during episode of care Description: Home flare breaker to measure vital signs during every home health visit during episode of care. Monitor patient's vital signs every home health visit No Verbalize signs of infection Description: Verbalize signs of infection Infection Prevention No Demonstrate use of safety precautions Description: Demonstrate use of safety precautions Fall Precautions/Safety Concerns No Report that pain has been reduced [...] care Disease Management - Diabetes No Demonstrate ability to administer insulin Description: Patient/caregiver will demonstrate the ability to administer insulin using correct technique and site rotation by the end of the episode of care. Learning/Teaching Needs - Insulin Management No Demonstrate adequate knowledge of Diabetes Description: [...] setting Completed Patient is homebound due to dementia, diabetis, unsteady gait, risk for falls, open wound. Monitor Vital Signs Description: Monitor blood pressure, [...] Problem:Infection Prevention Goal:Verbalize signs of infection Completed instructed to keep wound clean and dry and to keep covered when oob to keep dirt from getting in wound. [place] Fall Precautions Description: Assess patient safety Problem:Fall Precautions/Safety Concerns Goal:Demonstrate use of safety precautions Completed instructed to use walker or cane when up if she feels lightheaded or dizzy. understanding expressed. Instruct on pain management techniques Description: Instruct in pharmacologic and nonpharmacologic pain management techniques. Problem:Pain Goal:Report that pain has been reduced or controlled Completed instructed to report if pain to feet increases . instructed to take gabapentin as ordered. understanding expressed Instruct on the signs and symptoms of infection Description: Assess wound with each visit for s/sx of infection Problem:Wound Risk of Infection Goal:Knowledgeable of infection Completed instructed to report redness, open areas, increase in drainage, pain, fever or foul odor . understanding expressed. Demonstration of Wound Care Description: Patient/caregiver will complete a return demonstration on wound care to SN or PT. Observed return wound care on admission Problem:Wound Education and Management Goal:Knowledgeable on Woundcare Completed pt able to do wound care as ordered. unsure if she does it daily as ordered. Instruct patient on maintaining adequate nutrition and hydration Description: Instruct patient on maintaining adequate nutrition for wound healing. Instruct pt/cg on eating/offering a balanced diet. Instruct on adequate protein sources per Wound Education Booklet. Consult RD for chronic malnutrition, stage 3 or 4 pressure ulcer. Problem:Wound Education and Management Goal:Knowledgeable on Woundcare Completed instructed on proper diet and hydration for wound healing. instructed to increase in protein for wound healing and to increase water for bowel and bladder status. understanding expressed Skilled assessment wound Description: Full wound assessment including measurement weekly. Wound assessment each visit Problem:Wound Care Goal:Progression towards healing Completed Perform dressing change Description: Perform dressing change to be done by pt/cg/sn. rt great toe and rt 4th toe. wrap with guaze and secure with tape. to be done daily and prn for drainage or dislodgement. Problem:Wound Care Goal:Progression towards healing Completed Assess Diabetes: Monitor for the presence of skin lesions on the lower extremity Description: Monitor for the presence of skin lesions on the lower extremity. Problem:Disease Management - Diabetes Goal:Verbalize prevention of infection Completed Educate on foot care Description: Educate patient/caregiver on proper foot care. Problem:Disease Management - Diabetes Goal:Verbalize prevention of infection Completed instructed to wear shoes and socks when oob to help prevent injury to feet. understanding expressed. Instruct insulin administration Description: Instruct patient/caregiver in insulin purpose, side effects, possible complications, administration procedure, and schedule. Instruct on safe handling and storage of insulin and on safe disposal of needles and testing equipment. Problem:Learning/Tea dena Needs - Insulin Management Goal:Demonstrate ability to administer insulin Completed pt tried to administer victoza during sn visit and it wound not work.sn tried also and could not get it to work. victoza company called and they instructed to change needles. pt or grandson unable to find replacement needles. message left with daughter to take pens back to [employer] and see if they can fix or replace. understanding expressed. Instruct diet Description: Instruct on diabetic diet. instructed to limit sugars and carbs. Problem:Learning/Tea dena Needs - Diabetes Goal:Demonstrate adequate knowledge of Diabetes Completed instructed to limit sugars and carbs to help maintain bs at acceptable leve. understanding expressed. Blood glucose monitoring Description: Patient/caregiver to perform blood sugar testing and record in log. Frequency of testing bid and prn for feelings of hypo or hyperglycemia Problem:Learning/Tea dena Needs - Diabetes Goal:Demonstrate adequate knowledge of Diabetes Completed pt is able to checkbs without difficulty but does not do so on a regular basis. instructed on importance of checking bs daily in the am before eating and at hs before bed and before taking her insulin. documented in this encounter Home Health Visit - Actions and Narratives Actions pt has sulfameth/trimeth fro m 10/05/19 is still in the home. has 11 pills yet. pt states she is taking but she should have been out on 11/03. instructed on the importance of taking medication as ordered. pt has dementia and schizophrenia and has trouble recalling instructions. daughter called and instructed that she needs to monitor pt's medication and insulin administration to make sure that pt is taking them as ordered. tee states that pt has appointment at wound clinic on thursday with dr rose. documented in this encounter Care Teams Aircraft Sales Representative Relationship Specialty Start Date End Date Cherelle Corcoran MD PCP - General Family Medicine 08/30/19 documented as of this encounter
--- OUTSIDE RECORDS SUMMARY | 2024-07-04 04:24 | XMS_ITS | Encounter Summary ---
Author Organization [facility] Home Care Servic es Address [address] [place] [address] Phone Care Team Providers Care Hard Candy Spinner Name Role Phone Cherelle Corcoran MD Primary Care Pro vider Reason for Visit * Auth/Cert Specialty Diagnoses / Procedures Referred By Contac t Referred To Contact Referral ID Status Reason Start Date Expiration Date Visits Re quested Visits Authorized [id number] 1 1 Encounter Details Date Type Department Care Team (Late st Contact Info) Description 12/23/2019 11:00 AM CDT Home Care Visit [facility] [address] [address] [address] [place] [address] Indira Valdivia LPN SN HOME VISIT Social [...] file Legal Sex Female 9:03 AM LEAD TECHNOLOGIST IN CYTOGENETICS Gender Identity Female 02/08/2020 6:39 PM CDT Sexual Orientation Not on file documented as of this encounter Last Filed Vital Signs Vital Sign Reading Time Taken Comments Blood Pressure 140/72 12/23/2019 11:33 AM CDT Pulse 87 12/23/2019 11:33 AM CDT Temperature 36.6 ??C (97.9 ??F) 12/23/2019 11:33 AM C DT Respiratory Rate 18 12/23/2019 11:33 AM CDT Oxygen Saturation 98% 12/23/2019 11:33 AM CDT Inhaled Oxygen Concentration - - Weight - - Height - - Body Mass Index - - documented in this encounter Plan of Treatment Upcoming Encounters Date Type Department Care Team (Latest Contact Info) Description 07/13/2024 9:00 AM LEAD TECHNOLOGIST IN CYTOGENETICS Hospital Encounter [facility] [address] [place] [address] Jaya Grier MD [address] [place] [address] [address] [place] [phone] 07/13/2024 9:00 AM LEAD TECHNOLOGIST IN CYTOGENETICS - 07/13/2024 9:30 AM LEAD TECHNOLOGIST IN CYTOGENETICS Surgery [facility] [address] [place] [address] [facility] [address] [place] [address] ESOPHAGOGASTRODUODENOSCOPY Scheduled Procedures Name Priority Associated Diagnoses Date/Ti me ESOPHAGOGASTRODUODENOSCOPY Anemia, unspecified type Gastritis without bleeding, unspecified chronicity, unspecified gastritis type 07/13/2024 9:00 AM LEAD TECHNOLOGIST IN CYTOGENETICS COLONOSCOPY Iron deficiency anemia due to chronic [...] scheduled/document ed in this visit Medications Disciplines: Mcfp Management of home medications 10/23/2019 Active 1 goal linked to scheduled/documen bruno intervention 1 goal intervention scheduled/document ed in this visit Monitor patient's vital signs every home health visit Disciplines: Mcfp Monitor patient's vital signs every home health visit. 10/23/2019 Active 1 goal linked to scheduled/documen bruno intervention 1 goal intervention scheduled/document ed in this visit Standardized Guidelines Disciplines: Mcfp Standardized Guidelines 10/23/2019 Active 1 goal linked to scheduled/documen bruno intervention 1 goal intervention scheduled/document ed in this visit Fall Precautions/Saf ety Concerns Disciplines: Mcfp Alteration in safety 10/23/2019 Active 1 goal [...] Diabetes Disciplines: Mcfp Management of diabetes symptoms 10/23/2019 Active 1 goal linked to scheduled/documen bruno intervention 1 goal intervention scheduled/document ed in this visit Learning/Teachi ng Needs - Diabetes Disciplines: Mcfp Learning and teaching needs associated with diagnosis [...] visit during episode of care Description: Home quality management coordinator to measure vital signs during every home health visit during episode of care. Monitor patient's vital signs every home health visit No Understanding of when to notify MD in absence of home care staff Description: Understanding of when to notify MD in absence of home care staff Standardized Guidelines No Demonstrate use of safety precautions Description: Demonstrate use of safety precautions Fall Precautions/Safety Concerns No Knowledgeable of infection Description: : Patient [...] interactions, storage, drug allergies, and potential complications. Problem:Medication s Goal:Understand and follow medication therapy Completed neurontin 400 mg tid to treat seizures store at room temprature nka side effects drowsiness dizziness blurred vision shaking if symptoms persist or worsen notify doctor patient verbalized understanding Monitor Vital Signs Description: Monitor blood pressure, pulse, oxygen saturation, respirations Problem:Monitor patient's vital signs every home health visit Goal:Measure vital signs during every home health visit during episode of care Completed WNL Home Care Staff Absence Description: In absence of Home Care staff the patient/caregiver should perfrom wound care Problem:Standardiz ed Guidelines Goal:Understanding of when to notify MD in absence of home care staff Completed patient family available to provide care in absence of home care staff High Fall Risk Precautions Description: Instruct patient/caregiver in methods to prevent falls Problem:Fall Precautions/Safety Concerns Goal:Demonstrate use of safety precautions Completed sn instructed patient on fall prevention to insure pathway free of debris insure when ambulating if any feelings of dizziness upon standing sit back down till it passess patient verbalized understanding Instruct Hand Washing Description: Instruct patient/caregiver on hand wash technique Problem:Wound Risk of Infection Goal:Knowledgeable of infection Completed sn instructed patient to wash hands frequently patient verbalized understanding Instruct on the signs and symptoms of infection Description: Assess wound with each visit for s/sx of infection Problem:Wound Risk of Infection Goal:Knowledgeable of infection Completed sn instructed patient on s/s of infection redness warmth pain drainage odor temprature notify doctor patient verbalized understanding Hydration for Wound Healing Description: Instruct on adequate hydration for wound healing, generally 6.5-8 cups (52-64oz/day). Unless health professional has suggested a fluid restriction Problem:Wound Education and Management Goal:Knowledgeable on Woundcare Completed sn instructed patient on hydration 6.5-8 cups daily to promote wound healingpatient verbalizes understandingpatient verbalizes understanding Supplements for wound healing Description: Consult with MD about patient specific protein supplements/multivit robertson with minerals for wound healing Problem:Wound Education and Management Goal:Knowledgeable on Woundcare Completed sn instructed patient on supplements vitamins/ensure/ boost to promote wound healing if approved by doctor patient verbalized understanding Skilled assessment wound Description: Full wound assessment including measurement weekly. Wound assessment each visit Problem:Wound Care Goal:Progression towards healing Completed sn assessed wound no s/s of infection at this time patient tolerated well Perform wound care Description: 12/22/19 cleanse ulcer to right foot with wound cleanser apply xeroform dry gauze wrap with kerlix and feliciano wrap. daily and prn for excessive drainage or becomes dislodged. w.o. dr ricardo echeverria/aleksandr casiano Problem:Wound Care Completed 12/22/19 cleanse ulcer to right foot with wound cleanser apply xeroform dry gauze wrap with kerlix and feliciano wrap. daily and prn for excessive drainage or becomes dislodged. patient tolerated well Educate on foot care Description: Educate patient/caregiver on proper foot care. Problem:Disease Management - Diabetes Goal:Verbalize prevention of infection Completed sn instructed patient to inspect feet on daily basis report any abnormalties to doctor patient verbalized understanding Instruct diet Description: Instruct on diabetic diet. instructed to limit sugars and carbs. Problem:Learning/T eaching Needs - Diabetes Goal:Demonstrate adequate knowledge of Diabetes Completed sn instructed patient on consistant carbohydrate diet to manage bs patient verbalized understanding Blood glucose monitoring Description: Patient/caregiver to perform blood sugar testing and record in log. Frequency of testing bid and prn for feelings of hypo or hyperglycemia Problem:Learning/T eaching Needs - Diabetes Goal:Demonstrate adequate knowledge of Diabetes Completed patient appears to be compliant with bs montoring documented in this encounter Home Health Visit - Actions and Narratives Actions snv today to assess wound wo und care pain medication and education. wound assessed no s/s of infection. wound care peformed patient tolerated well. patient states no pain c/o numbness to fingers/toes. patient waiting on daughter to picker operator gabpentine from pharmacy. sn instructed on wound care diet hydration gabapentin fall prevention s/s of infection handwashing see intervention note. documented in this encounter Care Teams Hard Candy Spinner Relationship Specialty Start Date End Date Cherelle Corcoran MD PCP - General Family Medicine 08/30/19 documented as of this encounter
--- OUTSIDE RECORDS SUMMARY | 2024-07-04 04:24 | XMS_ITS | Encounter Summary ---
Author Organization [facility] Home Care Servic es Address [address] [place] [address] Phone Care Team Providers Care Steward/Stewardess Third Name Role Phone Cherelle Corcoran MD Primary Care Pro vider Reason for Visit * Auth/Cert Specialty Diagnoses / Procedures Referred By Contac t Referred To Contact Referral ID Status Reason Start Date Expiration Date Visits Re quested Visits Authorized [id number] 1 1 Encounter Details Date Type Department Care Team (Late st Contact Info) Description 11/25/2019 Home Care Visit [facility] Home Health [address] [address] [address] [place], [place] [id number] Barb Ochoa, ALIREZA CASE COMMUNICATION Social History Tobacco Use Types Packs/Day Years Used Date Smoking Tobacco: Never Smokeless Tobacco: Never Alcohol Use Standard Drinks/Week Comments Not Currently 0 (1 standard drink = 0.6 oz pur e alcohol) PHQ-2 Answer Date Recorded PHQ-2 Score 0 08/30/2019 Comments No Sex and Gender Information Value Date Recorded Sex Assigned at Not on file Legal Sex Female 9:03 AM DEMOLITION EXPERT Gender Identity Female 02/08/2020 6:39 PM CDT Sexual Orientation Not on file documented as of this encounter Plan of Treatment Upcoming Encounters Date Type Department Care Team (Latest Contact Info) Description 07/13/2024 9:00 AM DEMOLITION EXPERT Hospital Encounter [facility] GI Lab [address] [place] [address] Jaya Grier MD [facility] [address] [place] [id number] 07/13/2024 9:00 AM DEMOLITION EXPERT - 07/13/2024 9:30 AM DEMOLITION EXPERT Surgery [facility] Lab [address] [place] [address] Jaya Grier MD [facility] [address] [place] [address] ESOPHAGOGASTRODUODENOSCOPY Scheduled Procedures Name Priority Associated Diagnoses Date/Ti me ESOPHAGOGASTRODUODENOSCOPY Anemia, unspecified type Gastritis without bleeding, unspecified chronicity, unspecified gastritis type 07/13/2024 9:00 AM DEMOLITION EXPERT COLONOSCOPY Iron deficiency anemia due to chronic blood loss documented as of this encounter Visit Diagnoses Not on filedocumented in this encounter Care Teams Steward/Stewardess Third Relationship Specialty Start Date End Date Cherelle Corcoran MD PCP - General Family Medicine 08/30/19 documented as of this encounter
--- OUTSIDE RECORDS SUMMARY | 2024-07-04 04:24 | XMS_ITS | Encounter Summary ---
Author Organization [facility] Healthcare Address [address] [place] [address] Care Team Providers Care Seismograph Computer Name Role Phone Cherelle Corcoran MD Primary Care Pro vider Encounter Details Date Type Department Care Team (Late st Contact Info) Description 12/14/2019 3:00 PM CDT Lab [facility] [address] [place] [address] Social History Tobacco Use Types Packs/Day Years Used Date Smoking Tobacco: Never Smokeless Tobacco: Never Alcohol Use Standard Drinks/Week Comments Not Currently 0 (1 standard drink = 0.6 oz pur e alcohol) PHQ-2 Answer Date Recorded PHQ-2 Score 0 08/30/2019 Comments No Sex and Gender Information Value Date Recorded Sex Assigned at Not on file Legal Sex Female 9:03 AM DIGITAL MARKETING COORDINATOR Gender Identity Female 02/08/2020 6:39 PM CDT Sexual Orientation Not on file documented as of this encounter Plan of Treatment Upcoming Encounters Date Type Department Care Team (Latest Contact Info) Description 07/13/2024 9:00 AM DIGITAL MARKETING COORDINATOR Hospital Encounter [facility] [address] [place] [address] Jaya Grier MD [facility] [address] 07/13/2024 9:00 AM DIGITAL MARKETING COORDINATOR - 07/13/2024 9:30 AM DIGITAL MARKETING COORDINATOR Surgery [facility] [address] [place] [address] Jaya Grier MD [address] [address] ESOPHAGOGASTRODUODENOSCOPY Scheduled Procedures Name Priority Associated Diagnoses Date/Ti me ESOPHAGOGASTRODUODENOSCOPY Anemia, unspecified type Gastritis without bleeding, unspecified chronicity, unspecified gastritis type 07/13/2024 9:00 AM DIGITAL MARKETING COORDINATOR COLONOSCOPY Iron deficiency anemia due to chronic blood loss documented as of this encounter Visit Diagnoses Not on filedocumented in this encounter Care Teams Seismograph Computer Relationship Specialty Start Date End Date Cherelle Corcoran MD PCP - General Family Medicine 08/30/19 documented as of this encounter
--- OUTSIDE RECORDS SUMMARY | 2024-07-04 04:24 | XMS_ITS | Encounter Summary ---
Author Organization [facility] Address [address] [facility] [address] [place] [address] Care Team Providers Care Security Developer Name Role Phone Cherelle Corcoran MD Primary Care Pro vider Reason for Visit * Reason Onset Date Comments Update on Hospital Stay 01/05/2020 Encounter Details Date Type Department Care Team (Late st Contact Info) Description 01/05/2020 Telephone [facility] Primary Care [address] [facility] [address] [place] [address] hCerelle Corcoran MD [facility]4 [facility] [address] [place] [address] Update on Hospital Stay Social History Tobacco Use Types Packs/Day Years Used Date Smoking Tobacco: Never Smokeless Tobacco: Never Alcohol Use Standard Drinks/Week Comments Not Currently 0 (1 standard drink = 0.6 oz pur e alcohol) PHQ-2 Answer Date Recorded PHQ-2 Score 2 01/04/2020 Comments No Sex and Gender Information Value Date Recorded Sex Assigned at Not on file Legal Sex Female 9:03 AM HEAD STOCK TRANSFER CLERK Gender Identity Female 02/08/2020 6:39 PM CDT Sexual Orientation Not on file documented as of this encounter Miscellaneous Notes * Telephone Encounter - Natacha London MA - 01/05/2020 1:31 PM CDT Thank you, Dr. Corcoran noticed pt was in hospital this morning. * Telephone Encounter - Romelia Taylor - 01/05/2020 1:26 PM CDT Areli calls to inform [facility] that Mom is in [facility] b/o of toe gangrene. She was sent from Wound Care appt to hospital on Thu01-04-20. Antibiotics IV began yesterday, too. Dtr not sure of discharge date. [place]. Thanks, Vianney Jimenez cp: [phone]; OK to documented in this encounter Plan of Treatment Upcoming Encounters Date Type Department Care Team (Latest Contact Info) Description 07/13/2024 9:00 AM HEAD STOCK TRANSFER CLERK Hospital Encounter [facility] [address] [place] [address] Jaya Grier MD [address] [place] [address] DR GAINES [address] [place] [address] 07/13/2024 9:00 AM HEAD STOCK TRANSFER CLERK - 07/13/2024 9:30 AM HEAD STOCK TRANSFER CLERK Surgery [facility] [address] [place] [address] Jaya Grier MD [facility] [address] GAINES [address] [place] [address] ESOPHAGOGASTRODUODENOSCOPY Scheduled Procedures Name Priority Associated Diagnoses Date/Ti mt ESOPHAGOGASTRODUODENOSCOPY Anemia, unspecified type Gastritis without bleeding, unspecified chronicity, unspecified gastritis type 07/13/2024 9:00 AM HEAD STOCK TRANSFER CLERK COLONOSCOPY Iron deficiency anemia due to chronic blood loss documented as of this encounter Visit Diagnoses Not on filedocumented in this encounter Care Teams Security Developer Relationship Specialty Start Date End Date Cherelle Corcoran MD PCP - General Family Medicine 08/30/19 documented as of this encounter
--- OUTSIDE RECORDS SUMMARY | 2024-07-04 04:24 | XMS_ITS | Encounter Summary ---
Author Organization [facility] Healthcare Address [address] [place] [address] Care Team Providers Care Division Chair Name Role Phone Cherelle Corcoran MD Primary Care Pro vider Encounter Details Date Type Department Care Team (Latest Contact Info) Description 01/04/2020 1:49 PM CDT - 01/04/2020 5:42 PM CDT Hospital Encounter [facility] 1 [place] [address] Tasha Dick MD [address] [place] [address] [place] [address] Discharge Disposition: Discharge to home or self [...] on file Legal Sex Female 9:03 AM CORROSION PREVENTION METAL SPRAYER Gender Identity Female 02/08/2020 6:39 PM CDT Sexual Orientation Not on file documented as of this encounter Medications at Time of Discharge ferrous sulfate 325 mg (65 mg of elemental iron) tabletIndications: Iron Deficiency Anemia Take 1 tablet (325 mg total) by mouth daily with breakfast 30 tablet 11 01/11/2020 01/11/20 21 ciprofloxacin (CIPRO) 500 mg tablet Take 1 tablet (500 mg total) by mouth 2 (two) times a day for 14 days 28 tablet 12/22/2019 01/11/20 docusate sodium (COLACE) 100 mg capsuleIndications :constipation [...] pain 30 tablet 01/10/2020 02/14/20 20 insulin syringe-needle U-100 (BD Insulin Syringe [...] 3 times a day 09/12/2017 12/01/19 23 VALERIAN ROOT ORALIndications:re laxation Take 530 mg by mouth daily. Indications: relaxation 01/11/20 vancomycin 1,000 mg/200 mL piggybackIndicatio ns:Skin/Soft Tissue Infection Infuse 200 mL (1,000 mg total) into a venous catheter every 12 (twelve) hours Pharmacy to redose and manage level 43431 mL 1 01/10/2020 01/12/20 20 Victoza 2-Vivek 0.6 mg/0.1 mL (18 mg/3 mL) injectionIndicatio ns:Uncontrolled type 2 diabetes mellitus with hyperglycemia (HCC) Inject 1.2 mg under the skin daily 6 mL 1 09/06/2019 01/17/20 20 documented as of this encounter Discharge Disposition Disposition Code Departure Means Destination Discharge to home or self care documented in this encounter Plan of Treatment Upcoming Encounters Date Type Department Care Team (Latest Contact Info) Description 07/13/2024 9:00 AM CORROSION PREVENTION METAL SPRAYER Hospital Encounter [facility] [address] [place] [address] Jaya Grier MD [address] [facility] [address] [place] [address] 07/13/2024 9:00 AM CORROSION PREVENTION METAL SPRAYER - 07/13/2024 9:30 AM CORROSION PREVENTION METAL SPRAYER Surgery [facility] [address] [place] [address] Jaya Grier MD [facility] [facility] [address] GAINES [address] [place] [address] ESOPHAGOGASTRODUODENOSCOPY Scheduled Procedures Name Priority Associated Diagnoses Date/Ti me ESOPHAGOGASTRODUODENOSCOPY Anemia, unspecified type Gastritis without bleeding, unspecified chronicity, unspecified gastritis type 07/13/2024 9:00 AM CORROSION PREVENTION METAL SPRAYER COLONOSCOPY Iron deficiency anemia due to chronic blood loss documented as of this encounter Visit Diagnoses Not on filedocumented in this encounter Orders Medications Ordered That Flip ht Not Have Been Administered Count Last Ordered Date First Ordered Date cefTRIAXone (ROCEPHIN) 350 m g/mL intramuscular injection 2,000 mg 1 01/04/2020 documented in this encounter Care Teams Division Chair Relationship Specialty Start Date End Date Cherelle Corcoran MD PCP - General Family Medicine 08/30/19 documented as of this encounter
--- OUTSIDE RECORDS SUMMARY | 2024-07-04 04:24 | XMS_ITS | Encounter Summary ---
Author Organization [facility] Home Care Servic es Address [address] [place] [address] Phone Care Team Providers Care Slab Inspector Name Role Phone Cherelle Corcoran MD Primary Care Pro vider Reason for Visit * Reason Comments Wound Care * Auth/Cert Specialty Diagnoses / Procedures Referred By Contac t Referred To Contact Referral ID Status Reason Start Date Expiration Date Visits Re quested Visits Authorized [id number] 1 1 Encounter Details Date Type Department Care Team (Late st Contact Info) Description 12/06/2019 1:00 PM CDT Home Care Visit [facility] [place] [address] [address] [place] [address] Barb Ochoa RN SN HOME VISIT Social History Tobacco [...] on file Legal Sex Female 9:03 AM LEAN SIX SIGMA BLACK BELT Gender Identity Female 02/08/2020 6:39 PM CDT Sexual Orientation Not on file documented as of this encounter Last Filed Vital Signs Vital Sign Reading Time Taken Comments Blood Pressure 110/60 12/06/2019 1:51 PM CDT Pulse 74 12/06/2019 1:51 PM CDT Temperature 36.6 ??C (97.8 ??F) 12/06/2019 1:51 PM CD T Respiratory Rate 18 12/06/2019 1:51 PM CDT Oxygen Saturation 97% 12/06/2019 1:51 PM CDT Inhaled Oxygen Concentration - - Weight - - Height - - Body Mass Index - - documented in this encounter Plan of Treatment Upcoming Encounters Date Type Department Care Team (Latest Contact Info) Description 07/13/2024 9:00 AM LEAN SIX SIGMA BLACK BELT Hospital Encounter [facility] [address] [place] [address] Jaya Grier MD [facility]0 [facility] [address] GAINES [address] [place] [phone] 07/13/2024 9:00 AM LEAN SIX SIGMA BLACK BELT - 07/13/2024 9:30 AM LEAN SIX SIGMA BLACK BELT Surgery [facility] [address] [place] [address] Jaya Grier MD [address] [facility] [address] GAINES [address] [place] [id number] ESOPHAGOGASTRODUODENOSCOPY Scheduled Procedures Name Priority Associated Diagnoses Date/Ti al ESOPHAGOGASTRODUODENOSCOPY Anemia, unspecified type Gastritis without bleeding, unspecified chronicity, unspecified gastritis type 07/13/2024 9:00 AM LEAN SIX SIGMA BLACK BELT COLONOSCOPY Iron deficiency anemia due to chronic blood loss documented as of this encounter Visit Diagnoses Not on filedocumented in this encounter Home Health Visit - Care Plan Visit Details Visit Type -SN Home Visit Discipline -Residential Problems Problem Description Start Date Status Goals Interve ntions Homebound Status Disciplines: Residential Patient's homebound status 10/23/2019 Active 1 goal linked to scheduled/documen bruno intervention 1 goal intervention scheduled/document ed in this visit Monitor patient's vital signs every home health visit Disciplines: Residential Monitor patient's vital signs every home health visit. 10/23/2019 Active 1 goal linked to scheduled/documen bruno intervention 1 goal intervention scheduled/document ed in this visit Standardized Guidelines Disciplines: Residential Standardized Guidelines 10/23/2019 Active 1 goal linked to scheduled/documen bruno intervention 1 goal intervention scheduled/document ed in this visit Pain Disciplines: Residential Alteration in comfort 10/23/2019 Active 1 goal linked to scheduled/documen bruno intervention 1 goal intervention scheduled/document ed in this visit Wound Risk of Infection Disciplines: Residential Risk of infections related to wounds 10/23/2019 Active 1 goal linked to scheduled/documen bruno intervention 1 goal intervention scheduled/document ed in this visit Wound Education and Management Disciplines: Residential 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 10/23/2019 Active 1 goal linked to scheduled/documen bruno intervention 3 goal interventions scheduled/document ed in this visit Wound Care Disciplines: Residential Wound care needed 10/23/2019 Active 1 goal linked to scheduled/documen bruno intervention 2 goal interventions scheduled/document ed in this visit Disease Management - Diabetes Disciplines: Residential Management of diabetes symptoms 10/23/2019 Active 1 goal linked to scheduled/documen bruno intervention 1 goal intervention scheduled/document ed in this visit Learning/Teachi ng Needs - Diabetes Disciplines: Residential Learning and teaching needs associated with diagnosis 10/23/2019 Active 1 goal linked to scheduled/documen bruon intervention 4 goal interventions scheduled/document ed in this visit Goals Goal Associated Problem Outcome Goal Met? Visit Notes Patient recieves care at the most appropriate care setting Description: Patient receives care at the most appropriate care setting. Homebound Status No Measure vital signs during every home health visit during episode of care Description: Home arc furnace operator to measure vital signs during every home health visit during episode of care. Monitor patient's vital signs every home health visit No Understanding of when to notify MD in absence of home care staff Description: Understanding of when to notify MD in absence of home care staff Standardized Guidelines No Report that pain has been reduced [...] gait, diabetis, neuropathy, risk for falls, open wounds Monitor Vital Signs Description: Monitor blood pressure, pulse, oxygen saturation, respirations Problem:Monitor patient's vital signs every home health visit Goal:Measure vital signs during every home health visit during episode of care Completed Physician notification Description: Use standardized clinical guidelines for notifying physician of abnormal vital signs or clinical findings Problem:Standardized Guidelines Goal:Understanding of when to notify MD in absence of home care staff Completed wound clinic called to verify appoitnment. pt and daughter reminded of appoitnment time . understanding expressed. Instruct on pain management techniques Description: Instruct in pharmacologic and nonpharmacologic pain management techniques. Problem:Pain Goal:Report that pain has been reduced or controlled Completed instructed to report if pain is not relieved to an acceptable level. understanding expressed. Instruct Hand Washing Description: Instruct patient/caregiver on hand wash technique Problem:Wound Risk of Infection Goal:Knowledgeable of infection Completed instructed on good hand washing before and after wound care. understanding expressed Wound Deterioration Description: Instruct patient/caregiver on signs of deteriorating wounds including signs of infection and when to contact SUPERVISOR [employer] and/or MD Problem:Wound Education and Management Goal:Knowledgeable on Woundcare Completed instructed to report any new red or open areas , increase in pain, drainage, foul odor, or new white or excoriated areas to feet or toes. understanding expressed. Demonstration of Wound Care Description: Patient/caregiver will complete a return demonstration on wound care to SN or PT. Observed return wound care on admission Problem:Wound Education and Management Goal:Knowledgeable on Woundcare Completed pt able to perform wound care but does not always do it. dressing was intact upon sn arrival. Instruct patient on maintaining adequate nutrition and hydration Description: Instruct patient on maintaining adequate nutrition for wound healing. Instruct pt/cg on eating/offering a balanced diet. Instruct on adequate protein sources per Wound Education Booklet. Consult RD for chronic malnutrition, stage 3 or 4 pressure ulcer. Problem:Wound Education and Management Goal:Knowledgeable on Woundcare Completed instructed on need for low sugar and low carb diet. instructed on need for increase in protein to help with wound healing and to increase water intake for bowel and bladder function. understanding expressed. Skilled assessment wound Description: Full wound assessment including measurement weekly. Wound assessment each visit Problem:Wound Care Goal:Progression towards healing Completed Perform dressing change Description: Perform dressing change to be done by pt/cg/sn. rt great toe and rt 4th toe. wrap with guaze and secure with tape. to be done daily and prn for drainage or dislodgement. Problem:Wound Care Goal:Progression towards healing Completed wound care as per plan of care. pt tolerated well Assess Diabetes: Monitor for the presence of skin lesions on the lower extremity Description: Monitor for the presence of skin lesions on the lower extremity. Problem:Disease Management - Diabetes Goal:Verbalize prevention of infection Completed instructed to inspect feet and lower legs daily and report any new red or open areas immediately. understanding expressed. Instruct diet Description: Instruct on diabetic diet. instructed to limit sugars and carbs. Problem:Learning/Tea dena Needs - Diabetes Goal:Demonstrate adequate knowledge of Diabetes Completed instructed on need to limit carbs and sugars to help keep bs under control. understanding expressed. Instruct on signs and symptoms of hyperglycemia Description: Instruct patient/caregiver in signs/symptoms of hyperglycemia. Problem:Learning/Tea dena Needs - Diabetes Goal:Demonstrate adequate knowledge of Diabetes Completed instructed to report dry mouth, increase in thirst, weakness, headaches, blurred vision, and frequent urination. pt expressed understanding. Instruct s/s of hypoglycemia Description: Instruct patient/caregiver on the signs and symptoms of hypoglycemia. Problem:Learning/Tea dena Needs - Diabetes Goal:Demonstrate adequate knowledge of Diabetes Completed instructed on s/s of hypoglycemia including sweating, irritability, hunger, sleepiness or cool skin. pt expressed understanding Blood glucose monitoring Description: Patient/caregiver to perform blood sugar testing and record in log. Frequency of testing bid and prn for feelings of hypo or hyperglycemia Problem:Learning/Tea dena Needs - Diabetes Goal:Demonstrate adequate knowledge of Diabetes Completed pt is not monitoring bs daily as ordered. according to bs machine is only checking one time about every other day. instructed on importance of checking bs bid as ordered. instructed on need to keep bs within normal range to help in healing and to prevent any organ damage. pt expressed understanding. documented in this encounter Home Health Visit - Actions and Narratives Actions message left at dr echeverria's o ffice regarding detoriating condition of 2nd toe. no return call received . documented in this encounter Care Teams Slab Inspector Relationship Specialty Start Date End Date Cherelle Corcoran MD PCP - General Family Medicine 08/30/19 documented as of this encounter
--- OUTSIDE RECORDS SUMMARY | 2024-07-04 04:24 | XMS_ITS | Encounter Summary ---
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 It is really important we get blood sugars down. * Telephone Encounter - Natacha London MA - 11/01/2019 3:58 PM CDT Spoke with Barb [facility] nurse. States she noticed pt had an appointment scheduled with Lupe calling here. After speaking to me she took pt BS 412 this afternoon. Barb states that last time pt checked her BS was last week Thursday and it was in the 390's. She states pt has not had a BS on her glucose monitor lower than 300. Pt agrees to taking her medication as directed, daughter states reminds mother to take medications but is unsure if she does or not. * Telephone Encounter - Cherelle Corcoran MD - 11/01/2019 3:44 PM CDT Patient has appointment with vascular on 11/02, will await Dr. Jillian ram. * Telephone Encounter - Natacha London MA - 11/01/2019 1:54 PM CDT Barb from [facility] Home care in pt home today. States Pt wound on left great toe is better, open areasmaller but there are sores between all of her other toes. The sores are moist and pt foot is swollen. Pt is keeping clear and dry. Please advise where to go from here. Barb- [phone] documented in this encounter Plan of Treatment Upcoming Encounters Date Type Department Care Team (Latest Contact Info) Description 07/13/2024 9:00 AM ENVIRONMENTAL HEALTH TECHNOLOGIST Hospital Encounter [facility] [address] [place] [address] Jaya Grier MD [address] [place] [address] [address] GAINES [address] [id number] 07/13/2024 9:00 AM ENVIRONMENTAL HEALTH TECHNOLOGIST - 07/13/2024 9:30 AM ENVIRONMENTAL HEALTH TECHNOLOGIST Surgery [facility] [address] [place] [address] Jaya Grier MD [address] [place] [address] DR GAINES [address] [place] [id number] ESOPHAGOGASTRODUODENOSCOPY Scheduled Procedures Name Priority Associated Diagnoses Date/Ti sd ESOPHAGOGASTRODUODENOSCOPY Anemia, unspecified type Gastritis without bleeding, unspecified chronicity, unspecified gastritis type 07/13/2024 9:00 AM ENVIRONMENTAL HEALTH TECHNOLOGIST COLONOSCOPY Iron deficiency anemia due to chronic blood loss documented as of this encounter Visit Diagnoses Not on filedocumented in this encounter Care Teams Lead Systems Analyst Relationship Specialty Start Date End Date Cherelle Corcoran MD PCP - General Family Medicine 08/30/19 documented as of this encounter
--- OUTSIDE RECORDS SUMMARY | 2024-07-04 04:24 | XMS_ITS | Encounter Summary ---
Author Organization [facility] Home Care Servic es Address [address] [place] [address] Phone Care Team Providers Care Foreign Language Professor Name Role Phone Cherelle Corcoran MD Primary Care Pro vider Reason for Visit * Auth/Cert Specialty Diagnoses / Procedures Referred By Contac t Referred To Contact Referral ID Status Reason Start Date Expiration Date Visits Re quested Visits Authorized [id number] 1 1 Encounter Details Date Type Department Care Team (Late st Contact Info) Description 12/23/2019 Home Care Visit [facility] Home Health [address] [address] [address] [place], [place] [id number] Indira Valdivia LPN TRAVEL SCREENING CASE COMMUNICATION Social History Tobacco [...] on file Legal Sex Female 9:03 AM CASTINGS TRIMMER Gender Identity Female 02/08/2020 6:39 PM CDT Sexual Orientation Not on file documented as of this encounter Plan of Treatment Upcoming Encounters Date Type Department Care Team (Latest Contact Info) Description 07/13/2024 9:00 AM CASTINGS TRIMMER Hospital Encounter [facility] [address] [place] [address] Jaya Grier MD [address] [place] [address] DR GAINES [address] [place] [address] 07/13/2024 9:00 AM CASTINGS TRIMMER - 07/13/2024 9:30 AM CASTINGS TRIMMER Surgery [facility] [address] [place] [address] Jaya Grier MD [facility] [address] [place] [address] ESOPHAGOGASTRODUODENOSCOPY Scheduled Procedures Name Priority Associated Diagnoses Date/Ti me ESOPHAGOGASTRODUODENOSCOPY Anemia, unspecified type Gastritis without bleeding, unspecified chronicity, unspecified gastritis type 07/13/2024 9:00 AM CASTINGS TRIMMER COLONOSCOPY Iron deficiency anemia due to chronic blood loss documented as of this encounter Visit Diagnoses Not on filedocumented in this encounter Care Teams Foreign Language Professor Relationship Specialty Start Date End Date Cherelle Corcoran MD PCP - General Family Medicine 08/30/19 documented as of this encounter
--- OUTSIDE RECORDS SUMMARY | 2024-07-04 04:24 | XMS_ITS | Encounter Summary ---
Author Organization [facility] Home Care Servic es Address [address] [place] [address] Phone Care Team Providers Care Mainframe Systems Programmer Name Role Phone Cherelle Corcoran MD Primary Care Pro vider Reason for Visit * Auth/Cert Specialty Diagnoses / Procedures Referred By Contac t Referred To Contact Referral ID Status Reason Start Date Expiration Date Visits Re quested Visits Authorized [id number] 1 1 Encounter Details Date Type Department Care Team (Late st Contact Info) Description 12/06/2019 Home Care Visit [facility] Home Health [address] [address] [address] [place], [place] [id number] Barb Ochoa RN TRAVEL SCREENING CASE COMMUNICATION [...] on file Legal Sex Female 9:03 AM OUTCOMES ANALYST Gender Identity Female 02/08/2020 6:39 PM CDT Sexual Orientation Not on file documented as of this encounter Plan of Treatment Upcoming Encounters Date Type Department Care Team (Latest Contact Info) Description 07/13/2024 9:00 AM OUTCOMES ANALYST Hospital Encounter [facility] [address] [place] [address] Jaya Grier MD [address] [place] [address] DR [address] [place] [address] 07/13/2024 9:00 AM OUTCOMES ANALYST - 07/13/2024 9:30 AM OUTCOMES ANALYST Surgery [facility] [address] [place] [address] Jaya Grier MD [facility]0 [facility] [address] [place] [address] ESOPHAGOGASTRODUODENOSCOPY Scheduled Procedures Name Priority Associated Diagnoses Date/Ti me ESOPHAGOGASTRODUODENOSCOPY Anemia, unspecified type Gastritis without bleeding, unspecified chronicity, unspecified gastritis type 07/13/2024 9:00 AM OUTCOMES ANALYST COLONOSCOPY Iron deficiency anemia due to chronic blood loss documented as of this encounter Visit Diagnoses Not on filedocumented in this encounter Care Teams Mainframe Systems Programmer Relationship Specialty Start Date End Date Cherelle Corcoran MD PCP - General Family Medicine 08/30/19 documented as of this encounter
--- OUTSIDE RECORDS SUMMARY | 2024-07-04 04:24 | XMS_ITS | Encounter Summary ---
Author Organization [facility] Home Care Servic es Address [address] [place] [address] Phone Care Team Providers Care Promotions Assistant Sales Marketing Name Role Phone Cherelle Corcoran MD Primary Care Pro vider Mark Qeuen MD Unavailable [phone] Reason for Visit * Auth/Cert Specialty Diagnoses / Procedures Referred By Maryse t Referred To Contact Referral ID Status Reason Start Date Expiration Date Visits Re quested Visits Authorized [id number] 1 1 Encounter Details Date Type Department Care Team (Late st Contact Info) Description 12/30/2019 12:00 PM CDT Home Care Visit [facility] Health [address] [address] [address] [place] [address] Maddi Gordon RN SN HOME VISIT Social History Tobacco [...] on file Legal Sex Female 9:03 AM 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 Gender Identity Female 02/08/2020 6:39 PM CDT Sexual Orientation Not on file documented as of this encounter Last Filed Vital Signs Vital Sign Reading Time Taken Comments Blood Pressure 128/70 12/30/2019 12:50 PM CDT Pulse 80 12/30/2019 12:50 PM CDT Temperature 36.8 ??C (98.2 ??F) 12/30/2019 12:50 PM C DT Respiratory Rate 18 12/30/2019 12:50 PM CDT Oxygen Saturation 98% 12/30/2019 12:50 PM CDT Inhaled Oxygen Concentration - - Weight - - Height - - Body Mass Index - - documented in this encounter Plan of Treatment Upcoming Encounters Date Type Department Care Team (Latest Contact Info) Description 07/13/2024 9:00 AM 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 Hospital Encounter [facility] [address] [place] [address] Jaya Grier MD [facility]0 [facility] [address] [place] [address] 07/13/2024 9:00 AM 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 - 07/13/2024 9:30 AM 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 Surgery [facility] [address] [place] [address] Jaya Grier MD [facility] [address] [place] [address] ESOPHAGOGASTRODUODENOSCOPY Scheduled Procedures Name Priority Associated Diagnoses Date/Ti in ESOPHAGOGASTRODUODENOSCOPY Anemia, unspecified type Gastritis without bleeding, unspecified chronicity, unspecified gastritis type 07/13/2024 9:00 AM 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 COLONOSCOPY Iron deficiency anemia due to [...] goal linked to scheduled/documen bruno intervention 2 problem interventions scheduled/document ed in this visit 1 goal intervention scheduled/document ed in this visit Learning/Teac jasiel Needs - Diabetes Disciplines: [facility] Learning and [...] visit during episode of care Description: Home tailor fitter to measure vital signs during every home health visit during episode of care. Monitor patient's vital signs every home health visit No Knowledgeable of infection Description: : Patient will remain free of infection and able to recognizes of signs of infection Wound Risk of Infection No Progression towards healing Description: Wound show progression towards healing by discharge Wound Care No Demonstrate adequate knowledge of Diabetes Description: [...] diabetis, neuropathy, risk for falls, open wound . Monitor Vital Signs Description: Monitor blood pressure, pulse, oxygen saturation, respirations Problem:Monitor patient's vital signs every home health visit Goal:Measure vital signs during every home health visit during episode of care Completed Instruct patient/family/caregiv er on infection control and safe disposal of dressing materials Description: Instruct patient/caregiver on how to recognized signs and symptoms of infection and when to notify [employer] and/or physician per Wound Education Booklet. Instruct [...] bag, seal, and place in regular trash. Skilled assessment wound Description: Full wound assessment including measurement weekly. Wound assessment each visit Problem:Wound Care Goal:Progression towards healing Completed Perform wound care Description: 12/22/19 cleanse ulcer to right foot with wound cleanser apply xeroform dry gauze wrap with kerlix and feliciano wrap. daily and prn for excessive drainage or becomes dislodged. w.o. dr ricardo echeverria/aleksandr casiano Problem:Wound Care Completed Perform dressing change Description: Effective 12/22/2019 Perform dressing change to be done by pt/cg/sn. rt great toe and rt 4th toe. cleanse with soap and water or wound cleanser. pat dry apply betadine, wrap with guaze and secure with tape. to be done daily and prn for drainage or dislodgement. VORB: Dr. Echeverria/Vianney/Kathleen RN 12/22/2019 2012 This order may change after patient's OV 12/22/19 per Vianney Problem:Wound Care Completed Instruct on signs and symptoms of hyperglycemia Description: Instruct patient/caregiver in signs/symptoms of hyperglycemia. Problem:Learning/Teac jasiel Needs - Diabetes Goal:Demonstrate adequate knowledge of Diabetes Completed pt instructed on s/s of hyperglycemia: thirst/fatigue/headac he/blurred vision. Pt verb understanding of these and need to inform cg and MD Instruct s/s of hypoglycemia Description: Instruct patient/caregiver on the signs and symptoms of hypoglycemia. Problem:Learning/Teac jasiel Needs - Diabetes Goal:Demonstrate adequate knowledge of Diabetes Completed Patient and Caregiver instructed on s/s of hypoglycemia :sweating/shaking, ketonuria, fever, nausea and vomiting and when to notify physician, Blood glucose monitoring Description: Patient/caregiver to perform blood sugar testing and record in log. Frequency of testing bid and prn for feelings of hypo or hyperglycemia Problem:Learning/Teac jasiel Needs - Diabetes Goal:Demonstrate adequate knowledge of Diabetes Completed documented in this encounter Care Teams Promotions Assistant Sales Marketing Relationship Specialty Start Date End Date Cherelle Corcoran MD PCP - General Family Medicine 08/30/19 Mark Queen MD Consulting Physician Infectious Diseases 01/10/20 documented as of this encounter
--- OUTSIDE RECORDS SUMMARY | 2024-07-04 04:24 | XMS_ITS | Encounter Summary ---
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) Procedures XR Foot Right 3 or More Views Isael Dick MD [address] [place] [address] [place] [address] Phone: tel: fax: [address] [phone] Referral ID Status Reason Start Date Expiration Date Visits Re quested Visits Authorized [id number] Closed 12/14/2019 06/24/2021 1 1 Reason for Visit * Diagnostic Imaging (Routine) - Closed Specialty Diagnoses / Procedures Referred By Maryse t Referred To Contact Diagnoses 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) Procedures XR Foot Right 3 or More Views Isael Dick MD [address] [place] [address] [place] [address] Phone: tel: fax: [facility] [address] [place] [address] Referral ID Status Reason Start Date Expiration Date Visits Re quested Visits Authorized [id number] Closed 12/14/2019 06/24/2021 1 1 Encounter Details Date Type Department Care Team (Latest Contact Info) Description 12/14/2019 2:45 PM CDT - 12/14/2019 11:59 PM CDT Hospital Encounter [facility] [address] [place] [address] Isael Dick MD [address] [facility] [place] [address] Non-pressure chronic ulcer of other part of right foot with necrosis of bone (CMS/HCC) Discharge Disposition: Discharge to home or self [...] on file Legal Sex Female 9:03 AM RECEIVABLE CLERK Gender Identity Female 02/08/2020 6:39 PM CDT Sexual Orientation Not on file documented as of this encounter Medications at Time of Discharge sulfamethoxazole-tr imethoprim (BACTRIM DS) 800-160 mg per tabletIndications:S kin/Soft Tissue Infection Take 1 tablet by mouth 2 (two) times a day 60 tablet 11/17/2019 0 amino acids-protein hydr-fiber 15-90 gram-kcal/30 mL liquidIndications: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 Indications: low vitamin D levels 0 collagenase (SANTYL) ointmentIndications :Diabetic ulcer of [...] 09/06/2019 0 documented as of this encounter Discharge Disposition Disposition Code Departure Means Destination Discharge to home or self care documented in this encounter Plan of Treatment Upcoming Encounters Date Type Department Care Team (Latest Contact Info) Description 07/13/2024 9:00 AM RECEIVABLE CLERK Hospital Encounter [facility] [address] [place] [address] Jaya Grier MD [address] [facility] [address] [address] 07/13/2024 9:00 AM RECEIVABLE CLERK - 07/13/2024 9:30 AM RECEIVABLE CLERK Surgery [facility] [address] [place] [address] Jaya Grier MD [address] [facility] [place] [address] ESOPHAGOGASTRODUODENOSCOPY Scheduled Procedures Name Priority Associated Diagnoses Date/Ti me ESOPHAGOGASTRODUODENOSCOPY Anemia, unspecified type Gastritis without bleeding, unspecified chronicity, unspecified gastritis type 07/13/2024 9:00 AM RECEIVABLE CLERK COLONOSCOPY Iron deficiency anemia due to chronic blood loss documented as of this encounter Procedures Procedure Name Priority Date/Time Associated Diagnosis Comments XR FOOT RIGHT 3 OR MORE VIEWS Schedule Routine, Read Routine (OP Routine) 12/14/2019 3:16 PM CDT Non-pressure chronic ulcer of other part of right foot with necrosis of bone (CMS/HCC) EGFR Routine 12/14/2019 2:53 PM CDT DIFFERENTIAL AUTO Routine 12/14/2019 2:5 3 PM CDT CBC WITH AUTO DIFFERENTIAL Routine 12/14/2019 2:53 PM CDT ERYTHROCYTE SEDIMENTATION RATE Routine 12/14/2019 2:53 PM CDT CRP (ACUTE PHASE) Routine 12/14/2019 2:5 3 PM CDT HEMOGLOBIN A1C Routine 12/14/2019 2:53 PM CDT COMPREHENSIVE METABOLIC PANEL Routine 12/14/2019 2:53 PM CDT documented in this encounter Results * XR Foot Right 3 or More Views (12/14/2019 3:16 PM CDT) Anatomical Region Laterality Modality Lower Extremities, Foot Right Computed Radiography 12/15/2019 7:35 AM CDT Impressions 12/15/2019 7:38 AM CDT Cortical indistinctness at the 1st proximal phalangeal head and distal phalangeal base, raising concern for osteomyelitis if there is overlying skin ulceration. ?? Electronically signed by: Eliseo Cedeño M.D. Narrative 12/15/2019 7:38 AM CDT EXAMINATION: XR FOOT RIGHT 3 OR MORE VIEWS ORDERING HEALTHCARE PROVIDER: ISAEL DICK HISTORY: xr foot. 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 Patient poor historian, bandages placed. ?? TECHNIQUE: Right foot 3 views. COMPARISON: ??None available FINDINGS: BONES/JOINTS: The bone mineralization is normal. There is no acute fracture or dislocation. ??Oblique view, there is cortical indistinctness at the 1st distal phalangeal base and at the adjacent 1st proximal phalangeal head. ??These raise concern for osteomyelitis if there is overlying soft tissue ulceration. ??If this is of strong clinical concern, MRI could be considered. 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 SOFT TISSUES: No acute findings. ??No radiopaque foreign body. OTHER: ?? Vascular calcifications. Procedure Note Eliseo Cedeño MD - 12/15/2019 EXAMINATION: XR FOOT RIGHT 3 OR MORE VIEWS ORDERING HEALTHCARE PROVIDER: ISAEL DICK HISTORY: xr foot. 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 Patient poor historian, bandages placed. TECHNIQUE: Right foot 3 views. COMPARISON: None available FINDINGS: BONES/JOINTS: The bone mineralization is normal. [...] No radiopaque foreign body. OTHER: Vascular calcifications. IMPRESSION: Cortical indistinctness at the 1st proximal phalangeal head and distal phalangeal base, raising concern for osteomyelitis if there is overlying skin ulceration. Electronically signed by: Eliseo Cedeño M.D. us Isael Dick MD IMG XR PROCEDURES Final Resu lt * eGFR (12/14/2019 2:53 PM CDT) eGFR 74 mL/min/1.7 3 m2 [facility] ([place]) Comment: Interpretive Data Reference Interval Normal ?>/= 90 mL/min/1.73m2 Mildly decreased* ? 60 - 89 mL/min/1.73m2 Mildly to moderately decreased ?45 - 59 mL/min/1.73m2 Moderately to severely decreased ??30 - 44 mL/min/1.73m2 Severely decreased ?15 - 29 mL/min/1.73m2 Kidney Failure ?< 15 ??mL/min/1.73m2 *Relative to young adult level If -Russian multiply value by 1.16. Estimated glomerular filtration [...] was last reviewed 2016. Blood specimen (specimen) 12/14/2019 2:53 PM CDT 12/14/2019 4:18 PM CDT us Isael Dick MD LAB BLOOD ORDERABLES Final R esult [facility] ([place]) 1 [facility] Department [place] [address] * Differential, auto (12/14/2019 2:53 PM CDT) Neutrophil abs 5.6 1.7 - 6.5 K/cumm [facility] ([place]) Imm gran abs 0.0 0.0 - 0.1 K/cumm [facility] ([place]) Lymphocyte abs 2.3 0.8 - 3.3 K/cumm [facility] ([place]) Monocyte abs 0.5 0.2 - 0.8 K/cumm [facility] ([place]) Eosinophil abs 0.1 0.0 - 0.5 K/cumm [facility] ([place]) Basophil abs 0.0 0.0 - 0.1 K/cumm [facility] ([place]) Neutrophil pct 65.5 % [facility] ([place]) Comment: Interpretive Data Percent cell count reference ranges are not reported, since discordance with absolute values may lead to misinterpretation of CBC data. Current Interpretive Data was last revised on 2017. Imm gran pct 0.2 % [facility] ([place]) Comment: Interpretive Data Percent cell count reference ranges are not reported, since discordance with absolute values may lead to misinterpretation of CBC data. Current Interpretive Data was last revised on 2017. Lymphocyte pct 27.5 % [facility] ([place]) Comment: Interpretive Data Percent cell count reference ranges are not reported, since discordance with absolute values may lead to misinterpretation of CBC data. Current Interpretive Data was last revised on 2017. Monocyte pct 5.8 % [facility] ([place]) Comment: Interpretive Data Percent cell count reference ranges are not reported, since discordance with absolute values may lead to misinterpretation of CBC data. Current Interpretive Data was last revised on 2017. Eosinophil pct 0.8 % [facility] ([place]) Comment: Interpretive [...] last revised on 2017. Blood specimen (specimen) 12/14/2019 2:53 PM CDT 12/14/2019 4:18 PM CDT us Isael Dick MD LAB BLOOD ORDERABLES Final R esult [facility] ([place]) 1 [facility] [place] [address] * (ABNORMAL) CBC with auto differential (12/14/2019 2:53 PM CDT) WBC 8.5 3.8 - 9.9 K/cumm [facility] ([place]) Hgb 12.4 11.9 - 15.5 g/dL [facility] ([place]) Hct 39.3 35.6 - 45.5 % [facility] ([place]) Plt 317 150 - 400 K/cumm [facility] ([place]) MPV 10.8 9.1 - 12.3 fL [facility] ([place]) RBC 4.25 3.90 - 5.20 M/cumm [facility] ([place]) MCV 92.5 81.3 - 96.4 fL [facility] ([place]) MCH 29.2 27.1 - 33.3 pg [facility] ([place]) MCHC 31.6(L) 32.3 - 35.7 g/dL [facility] ([place]) RDW CV 14.7 11.1 - 14.9 % [facility] ([place]) RDW SD 50.6(H) 35.7 - 48.1 fL [facility] ([place]) NRBC abs 0.00 0.00 - 0.01 K/cumm [facility] ([place]) Blood specimen (specimen) 12/14/2019 2:53 PM CDT 12/14/2019 4:18 PM CDT us Isael Dick MD LAB BLOOD ORDERABLES Final R esult [facility] ([place]) 1 [facility] [place] [address] * (ABNORMAL) Erythrocyte sedimentation rate (12/14/2019 2:53 PM CDT) Erythrocyte sedimentation rate 60(H) 1 - 30 mm/hr [facility] ([place]) Blood specimen (specimen) 12/14/2019 2:53 PM CDT 12/14/2019 4:18 PM CDT Isael Dick MD LAB BLOOD ORDERABLES Final R esult [facility] ([place]) 1 [place] [address] * CRP (acute phase) (12/14/2019 2:53 PM CDT) CRP 9.5 <=10.0 mg/L [facility] ([place]) Blood specimen (specimen) 12/14/2019 2:53 PM CDT 12/14/2019 4:18 PM CDT Isael Dick MD LAB BLOOD ORDERABLES [facility] Performing Organization Address [facility] Co de Phone Number [facility] ([place]) 1 [facility] [place] [address] * (ABNORMAL) Comprehensive metabolic panel (12/14/2019 2:53 PM CDT) Sodium 135 135 - 145 mmol/L [facility] ([place]) Potassium, pl 4.7 3.3 - 4.9 mmol/L [facility] ([place]) Chloride 99 97 - 110 mmol/L [facility] ([place]) CO2 27 22 - 32 mmol/L [facility] ([place]) Anion gap 9 2 - 15 mmol/L [facility] ([place]) BUN 29(H) 8 - 25 mg/dL [facility] ([place]) Creatinine 0.81 0.60 - 1.10 mg/dL [facility] ([place]) Glucose 387(H) 70 - 199 mg/dL [facility] ([place]) Comment: Interpretive Data Fasting glucose [...] interpretive data was last revised 2017. Calcium 10.6(H) 8.5 - 10.3 mg/dL [facility] ([place]) Bilirubin, total <0.2 0.1 - 1.2 mg/dL [facility] ([place]) Protein, pl 7.7 6.5 - 8.5 g/dL [facility] ([place]) Albumin 3.7 3.5 - 5.0 g/dL [facility] ([place]) Alk phos 159(H) 40 - 130 Units/L [facility] ([place]) ALT 13 7 - 45 Units/L [facility] ([place]) AST 14 10 - 45 Units/L [facility] ([place]) Blood specimen (specimen) 12/14/2019 2:53 PM CDT 12/14/2019 4:18 PM CDT Isael Dick MD LAB BLOOD ORDERABLES Final R esult [facility] ([place]) 1 [facility] Department [place] [address] * (ABNORMAL) Hemoglobin A1c (12/14/2019 2:53 PM CDT) Hgb A1C 11.6(H) 4.0 - 5.6 % [facility] ([place]) Estimated Average Glucose 286 mg/dL [facility] ([place]) Comment: The ADA recommends reporting an estimated Average Glucose (eAG) with all Hemoglobin A1c results using the equation derived from a study of 507 normal and diabetic adults. ??Minority populations were underrepresented and children were not included. ?? (Diabetes Care 31:1634-9457, 2008). ??The eAG is not equivalent to a fasting glucose. 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
--- OUTSIDE RECORDS SUMMARY | 2024-07-04 04:24 | XMS_ITS | Encounter Summary ---
Author Organization [facility] Home Care Serv[facility] es Address [address] [place] [address] Phone Care Team Providers Care Roasterman Name Role Phone Cherelle Corcoran MD Primary Care Pro vider Reason for Visit * Auth/Cert Specialty Diagnoses / Procedures Referred By Contac t Referred To Contact Referral ID Status Reason Start Date Expiration Date Visits Re quested Visits Authorized [id number] 1 1 Encounter Details Date Type Department Care Team (Late st Contact Info) Description 11/30/[address] [facility] Home Health [address] [address] [address] [place], [place] [id number] Barb Ochoa RN TRAVEL SCREENING CASE COMMUNICATION [...] on file Legal Sex Female 9:03 AM SWIMMING POOL MAINTENANCE Gender Identity Female 02/08/2020 6:39 PM CDT Sexual Orientation Not on file documented as of this encounter Plan of Treatment Upcoming Encounters Date Type Department Care Team (Latest Contact Info) Description 07/13/2024 9:00 AM SWIMMING POOL MAINTENANCE Hospital Encounter [facility] [address] [place] [address] Jaya Grier MD [address] [place] [address] [address] [place] [address] 07/13/2024 9:00 AM SWIMMING POOL MAINTENANCE - 07/13/2024 9:30 AM SWIMMING POOL MAINTENANCE Surgery [facility] [address] [place] [address] Jaya Grier MD [facility] [address] [place] [address] ESOPHAGOGASTRODUODENOSCOPY Scheduled Procedures Name Priority Associated Diagnoses Date/Ti me ESOPHAGOGASTRODUODENOSCOPY Anemia, unspecified type Gastritis without bleeding, unspecified chronicity, unspecified gastritis type 07/13/2024 9:00 AM SWIMMING POOL MAINTENANCE COLONOSCOPY Iron deficiency anemia due to chronic blood loss documented as of this encounter Visit Diagnoses Not on filedocumented in this encounter Care Teams Roasterman Relationship Specialty Start Date End Date Cherelle Corcoran MD PCP - General Family Medicine 08/30/19 documented as of this encounter
--- OUTSIDE RECORDS SUMMARY | 2024-07-04 04:24 | XMS_ITS | Encounter Summary ---
Author Organization [facility] Home Care Servic es Address [address] [place] [address] Phone Care Team Providers Care Toy Stuffer Name Role Phone Cherelle Corcoran MD Primary Care Pro vider Encounter Details Date Type Department Care Team (Late st Contact Info) Description 12/16/2019 Plan of Care Documentation [facility] Health [address] [address] [address] [place] [address] Social History Tobacco Use Types Packs/Day Years Used Date Smoking Tobacco: Never Smokeless Tobacco: Never Alcohol Use Standard Drinks/Week Comments Not Currently 0 (1 standard drink = 0.6 oz pur e alcohol) PHQ-2 Answer Date Recorded PHQ-2 Score 0 08/30/2019 Comments No Sex and Gender Information Value Date Recorded Sex Assigned at Not on file Legal Sex Female 9:03 AM CIRCUIT DESIGN ENGINEER Gender Identity Female 02/08/2020 6:39 PM CDT Sexual Orientation Not on file documented as of this encounter Plan of Treatment Upcoming Encounters Date Type Department Care Team (Latest Contact Info) Description 07/13/2024 9:00 AM CIRCUIT DESIGN ENGINEER Hospital Encounter [facility] GI Lab [address] [place] [address] Jaya Grier MD [facility] [address] [address] 07/13/2024 9:00 AM CIRCUIT DESIGN ENGINEER - 07/13/2024 9:30 AM CIRCUIT DESIGN ENGINEER Surgery [facility] GI Lab [address] [place] [address] Jaya Grier MD [address] [address] ESOPHAGOGASTRODUODENOSCOPY Scheduled Procedures Name Priority Associated Diagnoses Date/Ti fl ESOPHAGOGASTRODUODENOSCOPY Anemia, unspecified type Gastritis without bleeding, unspecified chronicity, unspecified gastritis type 07/13/2024 9:00 AM CIRCUIT DESIGN ENGINEER COLONOSCOPY Iron deficiency anemia due to chronic blood loss documented as of this encounter Visit Diagnoses Not on filedocumented in this encounter Care Teams Toy Stuffer Relationship Specialty Start Date End Date Cherelle Corcoran MD PCP - General Family Medicine 08/30/19 documented as of this encounter
--- OUTSIDE RECORDS SUMMARY | 2024-07-04 04:24 | XMS_ITS | Encounter Summary ---
Author Organization [facility] Medical Group Address [address] [place] [address] Care Team Providers Care Braider Tender Name Role Phone Cherelle Corcoran MD Primary Care Pro vider Mark Queen MD Unavailable [phone] Reason for Visit * Reason Onset Date Comments currently admitted for gangrene 01/05/2020 Encounter Details Date Type Department Care Team (Late st Contact Info) Description 01/05/2020 Telephone [facility] Medical Group Vascular and Vein Surgery [address] [facility] [address] [place] [address] Guy Walsh MD [address] [place] [address] [address] [place] [address] currently admitted for gangrene Social History Tobacco Use Types Packs/Day Years Used Date Smoking Tobacco: Never Smokeless Tobacco: Never Alcohol Use Standard Drinks/Week Comments Not Currently 0 (1 standard drink = 0.6 oz pur e alcohol) PHQ-2 Answer Date Recorded PHQ-2 Total Score 0 01/17/2020 Comments No Sex and Gender Information Value Date Recorded Sex Assigned at Not on file Legal Sex Female 9:03 AM AUTOMOTIVE SALES MANAGER Gender Identity Female 02/08/2020 6:39 PM CDT Sexual Orientation Not on file documented as of this encounter Miscellaneous Notes * Telephone Encounter - Barb Green - 01/05/2020 1:29 PM CDT Pt is currently admitted into [facility] for gangrene. She wanted to let Dr. Walsh know. documented in this encounter Plan of Treatment Upcoming Encounters Date Type Department Care Team (Latest Contact Info) Description 07/13/2024 9:00 AM AUTOMOTIVE SALES MANAGER Hospital Encounter [facility] GI Lab [address] [place] [address] Jaya Grier MD [address] [place] [address] [address] GA[address] [place] [address] 07/13/2024 9:00 AM AUTOMOTIVE SALES MANAGER - 07/13/2024 9:30 AM AUTOMOTIVE SALES MANAGER Surgery [facility] GI Lab [address] [place] [address] Jaya Grier MD [facility]0 [facility] [address] [place] [address] ESOPHAGOGASTRODUODENOSCOPY Scheduled Procedures Name Priority Associated Diagnoses Date/Ti il ESOPHAGOGASTRODUODENOSCOPY Anemia, unspecified type Gastritis without bleeding, unspecified chronicity, unspecified gastritis type 07/13/2024 9:00 AM AUTOMOTIVE SALES MANAGER COLONOSCOPY Iron deficiency anemia due to chronic blood loss documented as of this encounter Visit Diagnoses Not on filedocumented in this encounter Additional Health Concerns Infection Onset Date Last Indicated Resolved Time 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
--- OUTSIDE RECORDS SUMMARY | 2024-07-04 04:24 | XMS_ITS | Encounter Summary ---
Author Organization [facility] Home Care Servic es Address [address] [place] [address] Phone Care Team Providers Care Raker Buffing Wheel Name Role Phone Cherelle Corcoran MD Primary Care Pro vider Reason for Visit * Auth/Cert Specialty Diagnoses / Procedures Referred By Contac t Referred To Contact Referral ID Status Reason Start Date Expiration Date Visits Re quested Visits Authorized [id number] 1 1 Encounter Details Date Type Department Care Team (Late st Contact Info) Description 01/05/[address] [facility] Home Health [address] [address] [address] [place], [place] [id number] Maddi Gordon RN SN OASIS TRANSFER W/OUT DC Social History Tobacco [...] file Legal Sex Female 9:03 AM SHEET METAL ROOFER Gender Identity Female 02/08/2020 6:39 PM CDT Sexual Orientation Not on file documented as of this encounter Plan of Treatment Upcoming Encounters Date Type Department Care Team (Latest Contact Info) Description 07/13/2024 9:00 AM SHEET METAL ROOFER Hospital Encounter [facility] GI Lab [address] [place] [address] Jaya Grier MD [address] [facility] [address] [place] [address] 07/13/2024 9:00 AM SHEET METAL ROOFER - 07/13/2024 9:30 AM SHEET METAL ROOFER Surgery [facility] GI Lab [address] [place] [address] Jaya Grier MD [address] [facility] [address] [place] [address] ESOPHAGOGASTRODUODENOSCOPY Scheduled Procedures Name Priority Associated Diagnoses Date/Ti nj ESOPHAGOGASTRODUODENOSCOPY Anemia, unspecified type Gastritis without bleeding, unspecified chronicity, unspecified gastritis type 07/13/2024 9:00 AM SHEET METAL ROOFER COLONOSCOPY Iron deficiency anemia due to chronic blood loss documented as of this encounter Visit Diagnoses Not on filedocumented in this encounter Home Health Visit - Care Plan Visit Details Visit Type -SN OASIS Transfe r w/o DC Discipline -Fpc Problems Problem Description Start Date [...] Wound Care Disciplines: Fpc Wound care needed 10/23/2019 Active - 1 problem intervention scheduled/document ed in this visit Goals Goal Associated Problem Outcome Goal Met? Visit Notes Patient recieves care at the most appropriate care setting Description: Patient receives care at the most appropriate care setting. Homebound Status No Measure vital signs during every home health visit during episode of care Description: Home area attendant to measure vital signs during every home [...] health visit during episode of care Scheduled Perform wound care Description: 12/22/19 cleanse ulcer to right foot with wound cleanser apply xeroform dry gauze wrap with kerlix and feliciano wrap. daily and prn for excessive drainage or becomes dislodged. w.o. dr ricardo echeverria/aleksandr casiano Problem:Wound Care Scheduled documented in this encounter Care Teams Raker Buffing Wheel Relationship Specialty Start Date End Date Cherelle Corcoran MD PCP - General Family Medicine 08/30/19 documented as of this encounter
--- OUTSIDE RECORDS SUMMARY | 2024-07-04 04:24 | XMS_ITS | Encounter Summary ---
Author Organization [facility] Medical Group Address [address] [facility] [address] [place] [address] Care Team Providers Care Microfilmer Name Role Phone Cherelle Corcoran MD Primary Care Pro vider Encounter Details Date Type Department Care Team (Late st Contact Info) Description 11/17/2019 3:15 PM CDT Office Visit [facility] Medical Group Vascular and Vein Surgery [address] [facility] [address] [place] [address] Guy Walsh MD [address] [place] [address] [address] [place] [address] Ulcer of toe of right foot, with fat layer exposed (CMS/HCC) (Primary Dx); Type 2 diabetes mellitus with foot ulcer, without long-term current use of insulin (CMS/HCC); Other diabetic neurological complication associated with [...] on file Legal Sex Female 9:03 AM ACQUISITIONS LOGISTICS ANALYST Gender Identity Female 02/08/2020 6:39 PM CDT Sexual Orientation Not on file documented as of this encounter Last Filed Vital Signs Vital Sign Reading Time Taken Comments Blood Pressure 156/73 11/17/2019 3:43 PM CDT Pulse 84 11/17/2019 3:43 PM CDT Temperature - - Respiratory Rate - - Oxygen Saturation - - Inhaled Oxygen Concentration - - Weight 56.7 kg (125 lb) 11/17/2019 3:43 PM CDT Height 157.5 cm (5' 2 ) 11/17/2019 3:43 PM CDT Body Mass Index 22.86 11/17/2019 3:43 PM CDT documented in this encounter Progress Notes * Guy Walsh MD - 11/17/2019 3:15 PM CDT Subjective/Objective Patient ID: Barbara Chakraborty is a 69 y.o. female. Chief Complaints Ulcers toes right foot No chief complaint on file. HPI the patient is a 69-year-old woman with history of schizophrenia, diabetes and diabetic neuropathy who is being followed for ulcerations of the toes right foot. She has no ulceration on the right 1st2nd and 4th toes. These are superficial. A recent MRI was positive osteomyelitis to the distal phalanx of the right 1st toe however the patient is clinically improving. There is also some osteomyelitis and right 4th toe which is also clinically improving. She has been undergoing dressing changes and is on oral antibiotic therapy. She has had no history of fevers chills or sweats. Current Outpatient Medications: ??? amino acids-protein hydr-fiber 15-90 gram-kcal/30 mL liquid, Drink 30ml daily, Disp: 887 mL, Rfl: 0 ??? Basaglar KwikPen U-100 Insulin 100 unit/mL (3 mL) insulin pen, Inject 27 Units under the skin nightly, Disp: 3 pen, Rfl: 1 ??? cholecalciferol (Vitamin D3) 1,000 unit capsule, Take 1,000 Units by mouth daily. Indications: low vitamin D levels, Disp: , Rfl: ??? collagenase (SANTYL) ointment, Apply topically daily, Disp: 30 g, Rfl: 0 ??? gabapentin (NEURONTIN) 300 mg capsule, Take 1 capsule (300 mg total) by mouth 3 (three) times aday, Disp: 270 tablet, Rfl: 1 ??? insulin syringe-needle U-100 (BD Insulin Syringe Ultra-Fine) 1 mL 31 gauge x 5/16 syringe, 3 times a day, Disp: , Rfl: ??? pen needle, diabetic 32 gauge x 3/16 needle, Once a day, Disp: , Rfl: ??? VALERIAN ROOT ORAL, Take 530 mg by mouth daily. Indications: relaxation, Disp: , Rfl: ??? Victoza 2-Vivek 0.6 mg/0.1 mL (18 mg/3 mL) injection, Inject 1.2 mg under the skin daily, Disp: 6mL, Rfl: 1 ??? sulfamethoxazole-trimethoprim (BACTRIM DS) 800-160 mg per tablet, Take 1 tablet by mouth 2 (two) times a day, Disp: 60 tablet, Rfl: 0 No Known Allergies Past Medical History: Diagnosis Date ??? Depression ??? Diabetic neuropathy (CMS/HCC) ??? Schizophrenia (CMS/HCC) Past Surgical History: Procedure Laterality Date ??? SECTION Family History Problem Relation Age of Onset ??? Stomach cancer Father Social History Socioeconomic History ??? Marital status: Single Spouse name: None ??? Number of children: None ??? Years of education: None ??? Highest education level: None Occupational History ??? None Social Needs ??? Financial resource strain: None ??? Food insecurity Worry: None Inability: None ??? Transportation needs Medical: None Non-medical: None Tobacco Use ??? Smoking status: Never Smoker ??? Smokeless tobacco: Never Used Substance and Sexual Activity ??? Alcohol use: Not Currently ??? Drug use: Never ??? Sexual activity: Defer Lifestyle ??? Physical activity Days per week: None Minutes per session: None ??? Stress: None Relationships ??? Social connections Talks on phone: None Gets together: None Attends sabianism service: None Active member of club or organization: None Attends meetings of clubs or organizations: None Relationship status: None ??? Intimate partner violence Fear of current or ex partner: None Emotionally abused: None Physically abused: None Forced sexual activity: None Other Topics Concern ??? None Social History Narrative ??? None ROS Constitutional: No change in appetite. No recent weight loss. No fevers,chills or sweats. HENT: No trouble swallowing. No tinnitus. Eyes: No visual disturbances. Respiratory: No shortness of breath. No cough or sputum production. No wheezing. Cardiovascular: No chest pain. No palpitations. Gastrointestinal: No abdominal pain. No nausea, vomiting or diarrhea. Genitourinary: No dysuria. No hematuria. Extremities: No claudication Musculoskeletal: No joint pains. No back pain. No myalgias. Neurologic: No dizziness. No syncope. No weakness. Endocrine: No polydipsia, polyphagia or polyuria. Skin: No rashes. No discoloration. Hematologic: No bleeding. No easy bruising. Psychiatric: No anxiety. No behavioral changes. No mood swings. PE Constitutional: Alert and oriented Eyes: Extraocular movements full, sclerae anicteric HENT: Head atraumatic and normocephalic Neck is supple No carotid bruits Chest: Effort normal. Breath sounds normal. Cardiovascular: S1 and S2 are normal. No murmurs, rubs or gallops appreciated. Extremities: femoral, polpliteal palpable. Posterior tibial and dorsalis pedis pulses palpable. Abdominal: Soft, nontender, no masses. Normal bowel sounds. Musculoskeletal: Normal range of motion. Neurologic: Cranial nerves 2-12 intact. Strength and sensation intact bilaterally. Skin: Warm and dry. No rashes. No discoloration. Hematologic/Lymphatic: No adenopathy, no ecchymoses. Psychiatric: Normal mood and affect. Behavior normal.Judgment normal. ASSESSMENT AND PLAN Assessment/Plan Diagnoses and all orders for this visit: Ulcer of toe of right foot, with fat layer exposed ([facility]) (Primary) Type 2 diabetes mellitus with foot ulcer, without long-term current use of insulin ([facility]) Other diabetic neurological complication associated with type 2 diabetes mellitus ([facility]) Impression 1. Ulcerations toes right foot. there ulcerations on the right 1st 2nd and 4th toes. Theulceration of the right 4th toes interdigital. These are superficial. There is no surrounding inflammatory reaction or drainage. Plan: Continue dressing changes and oral antibiotic therapy. Follow-up in 1 month impression 2. Diabetes. The patient's diabetes currently under good control Plan: Diabetic management as per primary care provider impression 3. Diabetic neuropathy. The patient has neuropathy of Both feet this is likely the underlying cause of the patient's ulcerations Plan: Will need orthotics of both feet once the ulcerations on the right foot have healed. documented in this encounter Plan of Treatment Upcoming Encounters Date Type Department Care Team (Latest Contact Info) Description 07/13/2024 9:00 AM ACQUISITIONS LOGISTICS ANALYST Hospital Encounter [facility] GI Lab [address] [place] [address] Jaya Grier MD [address] [facility] [address] [place] [address] 07/13/2024 9:00 AM ACQUISITIONS LOGISTICS ANALYST - 07/13/2024 9:30 AM ACQUISITIONS LOGISTICS ANALYST Surgery [facility] GI Lab [address] [place] [address] Jaya Grier MD [address] [place] [address] [address] [place] [address] ESOPHAGOGASTRODUODENOSCOPY Scheduled Procedures Name Priority Associated Diagnoses Date/Ti or ESOPHAGOGASTRODUODENOSCOPY Anemia, unspecified type Gastritis without bleeding, unspecified chronicity, unspecified gastritis type 07/13/2024 9:00 AM ACQUISITIONS LOGISTICS ANALYST COLONOSCOPY Iron deficiency anemia due to chronic blood loss documented as of this encounter Visit Diagnoses Diagnosis Ulcer of toe of right foot, with fat layer exposed (HCC)- Primary Type 2 diabetes mellitus with foot ulcer, without long-term current use of insulin (HCC) Other diabetic neurological complication associated with type 2 diabetes mellitus (HCC) Anemia, unspecified type Gastritis without bleeding, unspecified chronicity, unspecified gastritis type documented in this encounter Care Teams Microfilmer Relationship Specialty Start Date End Date Cherelle Corcoran MD PCP - General Family Medicine 08/30/19 documented as of this encounter
--- OUTSIDE RECORDS SUMMARY | 2024-07-04 04:24 | XMS_ITS | Encounter Summary ---
Author Organization [facility] Home Care Servic es Address [address] [place] [address] Phone Care Team Providers Care Associate Professor Of Engineering Name Role Phone Cherelle Corcoran MD Primary Care Pro vider Reason for Visit * Reason Comments Wound Care * Auth/Cert Specialty Diagnoses / Procedures Referred By Contac t Referred To Contact Referral ID Status Reason Start Date Expiration Date Visits Re quested Visits Authorized [id number] 1 1 Encounter Details Date Type Department Care Team (Late st Contact Info) Description 11/01/2019 10:15 AM CDT Home Care Visit [facility] [address] [address] [address] [place] [address] Barb Ochoa, ALIREZA SN HOME VISIT Social [...] Legal Sex Female 9:03 AM HOME HEALTH ADMINISTRATOR Gender Identity Female 02/08/2020 6:39 PM CDT Sexual Orientation Not on file documented as of this encounter Last Filed Vital Signs Vital Sign Reading Time Taken Comments Blood Pressure 120/70 11/01/2019 2:10 PM CDT Pulse 70 11/01/2019 2:10 PM CDT Temperature 35.9 ??C (96.7 ??F) 11/01/2019 2:10 PM CD T Respiratory Rate 18 11/01/2019 2:10 PM CDT Oxygen Saturation 98% 11/01/2019 2:10 PM CDT Inhaled Oxygen Concentration - - Weight - - Height - - Body Mass Index - - documented in this encounter Plan of Treatment Upcoming Encounters Date Type Department Care Team (Latest Contact Info) Description 07/13/2024 9:00 AM HOME HEALTH ADMINISTRATOR Hospital Encounter [facility] GI Lab [address] [place] [address] Jaya Grier MD [facility] [facility] [address] [place] [phone] 07/13/2024 9:00 AM HOME HEALTH ADMINISTRATOR - 07/13/2024 9:30 AM HOME HEALTH ADMINISTRATOR Surgery [facility] Lab [address] [place] [address] Jaya Grier MD [address] [place] [phone] ESOPHAGOGASTRODUODENOSCOPY Scheduled Procedures Name Priority Associated Diagnoses Date/Ti in ESOPHAGOGASTRODUODENOSCOPY Anemia, unspecified type Gastritis without bleeding, unspecified chronicity, unspecified gastritis type 07/13/2024 9:00 AM HOME HEALTH ADMINISTRATOR COLONOSCOPY Iron deficiency anemia due to [...] this visit Wound Risk of Infection Disciplines: Fpc Risk of infections related to wounds 10/23/2019 Active 1 goal linked to scheduled/documen bruno intervention 1 goal intervention scheduled/document ed in this visit Wound Care Disciplines: Fpc Wound care needed 10/23/2019 Active 1 goal linked to scheduled/documen bruno intervention 2 goal interventions scheduled/document ed in this visit Disease Management - Diabetes Disciplines: Fpc Management of diabetes symptoms 10/23/2019 Active 1 goal linked to scheduled/documen bruno intervention 1 goal intervention scheduled/document ed in this visit Learning/Teachi ng Needs - Diabetes Disciplines: Fpc Learning and teaching needs associated with diagnosis [...] visit during episode of care Description: Home board catcher to measure vital signs during every home [...] care setting Completed Patient is homebound due toopen wound, pain, risk for falls Monitor Vital Signs Description: [...] Goal:Verbalize signs of infection Completed instructed to wash hands before and after wound care. understanding expressed. Instruct on the signs and symptoms of infection Description: Assess wound with each visit for s/sx of infection Problem:Wound Risk of Infection Goal:Knowledgeable of infection instructed to report increase in edema, redness, pain, new red or open areas or increase in drainage or odor. unerstanding expressed but pt has memory loss and will need repeated instruction. Skilled assessment wound Description: Full wound assessment [...] as per plan of care. pt tolerated well. Assess Diabetes: Monitor for the presence of skin lesions on the lower extremity Description: Monitor for the presence of skin lesions on the lower extremity. Problem:Disease Management - Diabetes Goal:Verbalize prevention of infection Completed instructed to check feet and legs and between toes daily for any new red or open area. understanding expressed. Instruct diet Description: Instruct on diabetic diet. instructed to limit sugars and carbs. Problem:Learning/Teac jasiel Needs - Diabetes Goal:Demonstrate adequate knowledge of Diabetes Completed instructed to follow diabetic diet including limited carbs and sugars. pt needs repated instructions. Blood glucose monitoring Description: Patient/caregiver to perform blood sugar testing and record in log. Frequency of testing bid and prn for feelings of hypo or hyperglycemia Problem:Learning/Teac jasiel Needs - Diabetes Goal:Demonstrate adequate knowledge of Diabetes Completed instructed to monitor bs daily before breakdfast. pt checked bs at this visit and performed without difficulty. documented in this encounter Home Health Visit - Actions and Narratives Actions pietro echeverria called stephen ding foot wound and new open areas and moisture between all the toes on her rt foot. also instructed on edema of foot and toes which is new since last nursing visit. pt has an appointment on with . they will access and let sn know if there are any new orders. informed them that pt has not been taking antibiotics as ordered. has 42 of the [address] corcoran office and talked to Healther. informed of elevated blood sugar. informed that pt is not checking bs regularly and is not following diet. unsure if she is taking insulin on a regular basis. no new orders received. called and talked to Areli.who is the pt's daughter. informed of findings at todays visit incluidng not checking bs and bs being very high, not taking antibiotcs and new open areas to left foot between the toes. daughter is taking pt to the dr on . instructed that she needs to make sure the pt takes her insulin, antibiotics and other medications . states that she reminds the pt but will start making sure that she takes them before she leaves for work. pt's memory is getting worse. has almost immediate memory loss. is trying to either find help at home or a day care to have pt go when she is at work. documented in this encounter Care Teams Associate Professor Of Engineering Relationship Specialty Start Date End Date Cherelle Corcoran MD PCP - General Family Medicine 08/30/19 documented as of this encounter
--- OUTSIDE RECORDS SUMMARY | 2024-07-04 04:24 | XMS_ITS | Encounter Summary ---
Author Organization [facility] Home Care Servic es Address [address] [place] [address] Phone Care Team Providers Care Stone Banker Name Role Phone Cherelle Corcoran MD Primary Care Pro vider Reason for Visit * Reason Comments Wound Care * Auth/Cert Specialty Diagnoses / Procedures Referred By Contac t Referred To Contact Referral ID Status Reason Start Date Expiration Date Visits Re quested Visits Authorized [id number] 1 1 Encounter Details Date Type Department Care Team (Late st Contact Info) Description 11/13/2019 11:00 AM CDT Home Care Visit [facility] [address] [address] [address] [place] [address] Lottie Champion RN SN HOME VISIT Social [...] on file Legal Sex Female 9:03 AM CONTINUOUS MINING MACHINE LODE MINER Gender Identity Female 02/08/2020 6:39 PM CDT Sexual Orientation Not on file documented as of this encounter Last Filed Vital Signs Vital Sign Reading Time Taken Comments Blood Pressure 104/72 11/13/2019 11:10 AM CDT Pulse 78 11/13/2019 11:10 AM CDT Temperature 36.4 ??C (97.6 ??F) 11/13/2019 11:10 AM C DT Respiratory Rate 16 11/13/2019 11:10 AM CDT Oxygen Saturation 97% 11/13/2019 11:10 AM CDT Inhaled Oxygen Concentration - - Weight - - Height - - Body Mass Index - - documented in this encounter Plan of Treatment Upcoming Encounters Date Type Department Care Team (Latest Contact Info) Description 07/13/2024 9:00 AM CONTINUOUS MINING MACHINE LODE MINER Hospital Encounter [facility] Lab [address] [place] [address] Jaya Grier MD [facility]0 [facility] [address] [place] [address] 07/13/2024 9:00 AM CONTINUOUS MINING MACHINE LODE MINER - 07/13/2024 9:30 AM CONTINUOUS MINING MACHINE LODE MINER Surgery [facility] Lab [address] [place] [address] Jaya Grier MD [address] [facility] [address] [place] [address] ESOPHAGOGASTRODUODENOSCOPY Scheduled Procedures Name Priority Associated Diagnoses Date/Ti ri ESOPHAGOGASTRODUODENOSCOPY Anemia, unspecified type Gastritis without bleeding, unspecified chronicity, unspecified gastritis type 07/13/2024 9:00 AM CONTINUOUS MINING MACHINE LODE MINER COLONOSCOPY Iron deficiency anemia due to chronic blood loss documented as of this encounter Visit Diagnoses Not on filedocumented in this encounter Home Health Visit - Care Plan Visit Details Visit Type -SN Home Visit Discipline -Correction Problems Problem Description Start Date Status Goals Interve ntions Homebound Status Disciplines: Correction Patient's homebound status 10/23/2019 Active 1 goal linked to scheduled/documen bruno intervention 1 goal intervention scheduled/document ed in this visit Medications Disciplines: Correction Management of home medications 10/23/2019 Active 1 goal linked to scheduled/documen bruno intervention 1 goal intervention scheduled/document ed in this visit Monitor patient's vital signs every home health visit Disciplines: Correction Monitor patient's vital signs every home health visit. 10/23/2019 Active 1 goal linked to scheduled/documen bruno intervention 1 goal intervention scheduled/document ed in this visit Wound Education and Management Disciplines: Correction 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 10/23/2019 Active 1 goal linked to scheduled/documen bruno intervention 1 goal intervention scheduled/document ed in this visit Disease Management - Diabetes Disciplines: Correction Management of diabetes symptoms 10/23/2019 Active 1 goal linked to scheduled/documen bruno intervention 1 goal intervention scheduled/document ed in this visit Learning/Teachi ng Needs - Diabetes Disciplines: Correction Learning and teaching needs associated with diagnosis [...] visit during episode of care Description: Home balloon artist to measure vital signs during every home health visit during episode of care. Monitor patient's vital signs every home health visit No Knowledgeable on Woundcare Description: Patient/caregiver will be knowledgeable on woundcare procedure, wound healing and when to seek medical attention Wound Education and Management No Verbalize prevention of infection Description: Patient [...] Problem:Medications Goal:Understand and follow medication therapy Completed INSTRUCTED ON USE OF BACTRIM, SIDE AFFECTS AND TIMING OF MEDICATION. PT UNDERSTANDS AND IS AGREEABLE TO TAKE. SHE HAS #30 TABLETS LEFT IN BOTTLE, #60 PRESCRIBED. Monitor Vital Signs Description: Monitor blood pressure, pulse, oxygen saturation, respirations Problem:Monitor patient's vital signs every home health visit Goal:Measure vital signs during every home health visit during episode of care Completed Demonstration of Wound Care Description: Patient/caregiver will complete a return demonstration on wound care to SN or PT. Observed return wound care on admission Problem:Wound Education and Management Goal:Knowledgeable on Woundcare Completed REINSTRUCTED PT ON IMPORTANCE OF WOUND CARE AND KEEPING DRESSING IN PLACE. PT UNDERSTANDS. Educate on foot care Description: Educate patient/caregiver on proper foot care. Problem:Disease Management - Diabetes Goal:Verbalize prevention of infection Completed INSTRUCTED ON IMPORTANCE OF GOOD FOOT CARE AND KEEPING DRESSING TO WOUND INTACT. PT UNDERSTANDS. Instruct diet Description: Instruct on diabetic diet. instructed to limit sugars and carbs. Problem:Learning/Teac jasiel Needs - Diabetes Goal:Demonstrate adequate knowledge of Diabetes Completed DISCUSSED INCREASING PROTEIN FOR WOUND HEALING, PT UNDERSTANDS. documented in this encounter Home Health Visit - Actions and Narratives Actions WHEN SN ARRIVED TO HOME PT W WALKING AROUND IN SANDALS WITH WOUND OPEN TO AIR. SHE STATES SHE HAS BEEN LEAVING IT OPEN FOR A COUPLE DAYS. LATER WHEN INSTRUCTED ON IMPORTANCE OF KEEPING WOUND DRESSED SHE STATES SHE HAS BEEN DRESSING IT DAILY. DISCUSSED POSSIBILITY OF SETTING UP WOUND CLINIC APT AFTER THE HOLIDAY AND SHE IS AGREEABLE. INSTRUCTED ON BACTRIM AND IMPORTANCE OF TAKING SCHEDULED. SHE STATES SHE UNDERSTANDS. documented in this encounter Care Teams Stone Banker Relationship Specialty Start Date End Date Cherelle Corcoran MD PCP - General Family Medicine 08/30/19 documented as of this encounter
--- OUTSIDE RECORDS SUMMARY | 2024-07-04 04:24 | XMS_ITS | Encounter Summary ---
Author Organization [facility] Address [address] [place] [address] Care Team Providers Care Retirement Officer Name Role Phone Cherelle Corcoran MD Primary Care Pro vider Encounter Details Date Type Department Care Team (Late st Contact Info) Description 12/30/2019 Telephone [facility] Vascular and Vein Surgery [address] [place] [phone] Guy Walsh MD [address] [place] [address] [address] [place] [address] Social History Tobacco Use Types Packs/Day Years Used Date Smoking Tobacco: Never Smokeless Tobacco: Never Alcohol Use Standard Drinks/Week Comments Not Currently 0 (1 standard drink = 0.6 oz pur e alcohol) PHQ-2 Answer Date Recorded PHQ-2 Score 2 01/04/2020 Comments No Sex and Gender Information Value Date Recorded Sex Assigned at Not on file Legal Sex Female 9:03 AM LIVESTOCK EXHIBITOR Gender Identity Female 02/08/2020 6:39 PM CDT Sexual Orientation Not on file documented as of this encounter Miscellaneous Notes * Telephone Encounter - Guille Efremcarol ann - 12/30/2019 8:55 AM CDT Called pt daughters about appt with Dr. Welch on 01/05/20 at 2:45pm. documented in this encounter Plan of Treatment Upcoming Encounters Date Type Department Care Team (Latest Contact Info) Description 07/13/2024 9:00 AM LIVESTOCK EXHIBITOR Hospital Encounter [facility] GI Lab [address] [place] [address] Jaya Grier MD [facility]0 [facility] [address] [place] [phone] 07/13/2024 9:00 AM LIVESTOCK EXHIBITOR - 07/13/2024 9:30 AM LIVESTOCK EXHIBITOR Surgery [facility] [address] [place] [address] Jaya Grier MD [facility]0 [facility] [address] [place] [phone] ESOPHAGOGASTRODUODENOSCOPY Scheduled Procedures Name Priority Associated Diagnoses Date/Ti me ESOPHAGOGASTRODUODENOSCOPY Anemia, unspecified type Gastritis without bleeding, unspecified chronicity, unspecified gastritis type 07/13/2024 9:00 AM LIVESTOCK EXHIBITOR COLONOSCOPY Iron deficiency anemia due to chronic blood loss documented as of this encounter Visit Diagnoses Not on filedocumented in this encounter Care Teams Retirement Officer Relationship Specialty Start Date End Date Cherelle Corcoran MD PCP - General Family Medicine 08/30/19 documented as of this encounter
--- OUTSIDE RECORDS SUMMARY | 2024-07-04 04:24 | XMS_ITS | Encounter Summary ---
Author Organization [facility] Address [address] [place] [address] Care Team Providers Care Open Hearth Laborer Name Role Phone Cherelle Corcoran MD Primary Care Pro vider Reason for Visit * Reason Comments Diabetes Review Medications refill gabapentin Encounter Details Date Type Department Care Team (Latest Contact Info) Description 12/09/2019 3:30 PM CDT Office Visit [facility] Primary Care [address] [place] [phone] Cherelle Corcoran MD [address] [place] [phone] Uncontrolled type 2 diabetes mellitus with hyperglycemia (CMS/HCC) (Primary Dx); Other diabetic neurological complication associated with type 2 diabetes mellitus (CMS/HCC); Essential hypertension; Ulcer of toe of right foot, with [...] on file Legal Sex Female 9:03 AM ENGRAVER LETTERING Gender Identity Female 02/08/2020 6:39 PM CDT Sexual Orientation Not on file documented as of this encounter Last Filed Vital Signs Vital Sign Reading Time Taken Comments Blood Pressure 158/70 12/09/2019 4:12 PM CDT Pulse 85 12/09/2019 4:12 PM CDT Temperature 36.8 ??C (98.3 ??F) 12/09/2019 4:12 PM CD T Respiratory Rate 16 12/09/2019 4:12 PM CDT Oxygen Saturation 98% 12/09/2019 4:12 PM CDT Inhaled Oxygen Concentration - - Weight 56.2 kg (124 lb) 12/09/2019 4:12 PM CDT Height 157.5 cm (5' 2 ) 12/09/2019 4:12 PM CDT Body Mass Index 22.68 12/09/2019 4:12 PM CDT documented in this encounter Patient Instructions * Patient Instructions* Cherelle Corcoran MD - 12/09/2019 3:30 PM CDT Increase insulin to 27 units In 3 days if blood sugar in the morning (fasting) is above 140 increase insulin by 3 units. documented in this encounter Ordered Prescriptions Prescription Sig Dispense Quantity Refills Last Filled Start Date End Date lisinopriL (PRINIVIL,ZESTRIL) 10 mg tabletIndications: Essential hypertension Take 1 tablet (10 mg total) by mouth daily 30 tablet 5 12/09/2019 1 gabapentin (NEURONTIN) 400 mg capsuleIndications :Other diabetic neurological complication associated with type 2 diabetes mellitus (HCC) Take 1 capsule (400 mg total) by mouth 3 (three) times a day 270 capsule 1 12/09/2019 0 documented in this encounter Progress Notes * Cherelle Corcoran MD - 12/09/2019 3:30 PM CDT Images from the original note were not included. Assessment/Plan: Assessment/Plan Diagnoses and all orders for this visit: Uncontrolled type 2 diabetes mellitus with hyperglycemia (CMS/HCC) (Primary) Assessment & Plan: Patient did not increase basaglar after last appointment. Again stressed importance of increasing insulin as advised to get adequate blood sugar control. Recommend increasing basaglar to 27 units and increasing further by additional 3 units every 3 daysuntil fasting blood glucose <140. Will follow up closely to ensure continues titrating, advised follow up next week Orders: - POCT hemoglobin A1c - Ambulatory referral to Ophthalmology; Future Other diabetic neurological complication associated with type 2 diabetes mellitus ([facility]) Assessment & Plan: Continue gabapentin, refilled Orders: - gabapentin (NEURONTIN) 400 mg capsule; Take 1 capsule (400 mg total) by mouth 3 (three) times a day Essential hypertension Assessment & Plan: BP 158/70 today, previously 156/73 Will start 10mg lisinopril Follow up 2 weeks for recheck Orders: - lisinopriL (PRINIVIL,ZESTRIL) 10 mg tablet; Take 1 tablet (10 mg total) by mouth daily Ulcer of toe of right foot, with fat layer exposed ([facility]) Assessment & Plan: Following with vascular F/u 1 week or sooner as needed. Strict return/ED precautions discussed. Subjective: Barbara Chakraborty is a 69 y.o. female here for follow up diabetes mellitus HPI Chief Complaint Patient presents with ??? Diabetes ??? Review Medications refill gabapentin Diabetes mellitus Didn't increase basaglar, still taking 24 units Sugars in 200+ Neuropathy Needs gabapentin refilled Ulcer Following with vascular Still on antibiotics Has a hard time not picking at it Review of Systems Constitutional: Negative for fever. HENT: Negative for sore throat. Respiratory: Negative for cough and shortness of breath. Gastrointestinal: Negative for diarrhea and vomiting. Skin: Positive for wound. Objective: Vital signs were reviewed. Vitals: 12/09/19 1612 BP: 158/70 BP Location: Left arm Patient Position: Sitting Pulse: 85 Resp: 16 Temp: 36.8 ??C (98.3 ??F) TempSrc: Temporal SpO2: 98% Weight: 56.2 kg (124 lb) Height: 157.5 cm (5' 2 ) Physical Exam Gen: NAD, comfortable, appears as stated age Eyes: no conjunctival injection, EOMI ENMT: external ears symmetric, nares patent CV: Regular rate and rhythm, no murmurs, rubs or gallops Pulm: clear to asculation bilaterally, no wheezing, rhonchi or rales, no increased work of breathing Skin: no rashes or nodules, warm and dry, ulceration of plantar and medial R great toe and plantar surface of 2nd toe MSK/Neuro: symmetric limb movement Psych: alert and oriented to person/place Cherelle Corcoran MD documented in this encounter Miscellaneous Notes * Assessment & Plan Note - Cherelle Corcoran MD - 12/13/2019 1:08 PM CDTAssociated Problem(s): Primary hypertension BP 158/70 today, previously 156/73 Will start 10mg lisinopril Follow up 2 weeks for recheck * Assessment & Plan Note - Cherelle Corcoran MD - 12/13/2019 1:07 PM CDTAssociated Problem(s): Ulcer of toe of right foot, with fat layer exposed (HCC) (Resolved 08/28/2020) Following with vascular * Assessment & Plan Note - Cherelle Corcoran MD - 12/13/2019 1:05 PM CDTAssociated Problem(s): Type 2 diabetes mellitus with diabetic neuropathy, with long-term current use of insulin (HCC) Patient did not increase basaglar after last appointment. Again stressed importance of increasing insulin as advised to get adequate blood sugar control. Recommend increasing basaglar to 27 units and increasing further by additional 3 units every 3 daysuntil fasting blood glucose <140. Will follow up closely to ensure continues titrating, advised follow up next week * Assessment & Plan Note - Cherelle Corcoran MD - 12/13/2019 1:05 PM CDTAssociated Problem(s): Diabetic neuropathy (HCC) (Resolved 05/16/2024) Continue gabapentin, refilled documented in this encounter Plan of Treatment Upcoming Encounters Date Type Department Care Team (Latest Contact Info) Description 07/13/2024 9:00 AM ENGRAVER LETTERING Hospital Encounter [facility] GI Lab [address] [place] [address] Jaya Grier MD [address] [place] [address] [address] [place] [address] 07/13/2024 9:00 AM ENGRAVER LETTERING - 07/13/2024 9:30 AM ENGRAVER LETTERING Surgery [facility] GI Lab [address] [place] [address] Jaya Grier MD [address] [place] [address] [address] [place] [address] ESOPHAGOGASTRODUODENOSCOPY Scheduled Procedures Name Priority Associated Diagnoses Date/Ti me ESOPHAGOGASTRODUODENOSCOPY Anemia, unspecified type Gastritis without bleeding, unspecified chronicity, unspecified gastritis type 07/13/2024 9:00 AM ENGRAVER LETTERING COLONOSCOPY Iron deficiency anemia due to chronic blood loss documented as of this encounter Procedures Procedure Name Priority Date/Time Associated Diagnosis Comments POCT HEMOGLOBIN A1C Routine 12/09/2019 4 :21 PM CDT Uncontrolled type 2 diabetes mellitus with hyperglycemia (CMS/HCC) documented in this encounter Results * (ABNORMAL) POCT hemoglobin A1c (12/09/2019 4:21 PM CDT) Hemoglobin A1C, POC 12.2 Blood specimen (specimen) 12/09/2019 4:21 PM CDT Narrative Rashida Willis MA - 12/09/2019 4:21 PM CDT Lot [id number] Exp 07/04/21 us Cherelle Corcoran MD POINT OF CARE GOMEZ T ORDERABLES Final Result documented in this encounter Visit Diagnoses Diagnosis Uncontrolled type 2 diabetes mellitus with hyperglycemia (HCC)- Primary Other diabetic neurological complication associated with type 2 diabetes mellitus (HCC) Essential hypertension Unspecified essential hypertension Ulcer of toe of right foot, with fat layer exposed (HCC) Anemia, unspecified type Gastritis without bleeding, unspecified chronicity, unspecified gastritis type documented in this encounter Discontinued Medications Medication Sig Discontinue Reason Start Date End Da te gabapentin (NEURONTIN) 300 mg capsule Take 1 capsule (300 mg total) by mouth 3 (three) times a day Reorder 10/21/2019 12/09/2019 documented as of this encounter Care Teams Open Hearth Laborer Relationship Specialty Start Date End Date Cherelle Corcoran MD PCP - General Family Medicine 08/30/19 documented as of this encounter
--- OUTSIDE RECORDS SUMMARY | 2024-07-04 04:24 | XMS_ITS | Encounter Summary ---
Author Organization [facility] Home Care Servic es Address [address] [place] [address] Phone Care Team Providers Care Casing In Line Setter Name Role Phone Cherelle Corcoran MD Primary Care Pro vider Mark Queen MD Unavailable [phone] Reason for Visit * Reason Comments Wound Care * Auth/Cert Specialty Diagnoses / Procedures Referred By Maryse t Referred To Contact Referral ID Status Reason Start Date Expiration Date Visits Re quested Visits Authorized [id number] 1 1 Encounter Details Date Type Department Care Team (Latest Contact Info) Description 12/16/2019 11:00 AM CDT Home Care Visit [facility] [address] [address] [address] [place] [address] Faby Miller RN SN OASIS RECERTIFICATION Social History Tobacco Use Types Packs/Day Years Used Date Smoking Tobacco: Never Smokeless Tobacco: Never Alcohol Use Standard Drinks/Week Comments Not Currently 0 (1 standard drink = 0.6 oz pur e alcohol) PHQ-2 Answer Date Recorded PHQ-2 Score 2 01/04/2020 Comments No Sex and Gender Information Value Date Recorded Sex Assigned at Not on file Legal Sex Female 9:03 AM TEACHER OF FAMILY AND CONSUMER SCIENCE Gender Identity Female 02/08/2020 6:39 PM CDT Sexual Orientation Not on file documented as of this encounter Last Filed Vital Signs Vital Sign Reading Time Taken Comments Blood Pressure 140/62 12/16/2019 3:56 PM CDT Pulse 94 12/16/2019 3:56 PM CDT Temperature 36.1 ??C (97 ??F) 12/16/2019 3:56 PM CDT Respiratory Rate 18 12/16/2019 3:56 PM CDT Oxygen Saturation 97% 12/16/2019 3:56 PM CDT Inhaled Oxygen Concentration - - Weight - - Height - - Body Mass Index - - documented in this encounter Plan of Treatment Upcoming Encounters Date Type Department Care Team (Latest Contact Info) Description 07/13/2024 9:00 AM TEACHER OF FAMILY AND CONSUMER SCIENCE Hospital Encounter [facility] GI Lab [address] [place] [address] Jaya Grier MD [facility] [address] [place] [address] 07/13/2024 9:00 AM TEACHER OF FAMILY AND CONSUMER SCIENCE - 07/13/2024 9:30 AM TEACHER OF FAMILY AND CONSUMER SCIENCE Surgery [facility] GI Lab [address] [place] [address] Jaya Grier MD [facility] [address] GAINES [address] [place] [address] ESOPHAGOGASTRODUODENOSCOPY Scheduled Procedures Name Priority Associated Diagnoses Date/Ti wa ESOPHAGOGASTRODUODENOSCOPY Anemia, unspecified type Gastritis without bleeding, unspecified chronicity, unspecified gastritis type 07/13/2024 9:00 AM TEACHER OF FAMILY AND CONSUMER SCIENCE COLONOSCOPY Iron deficiency anemia due to chronic blood loss documented as of this encounter Visit Diagnoses Not on filedocumented in this encounter Additional Health Concerns Infection Onset Date Last Indicated Resolved Time MRSA 01/06/2020 01/06/2020 02/06/2021 5:00 AM CDT documented as of this encounter Home Health Visit - Care Plan Visit Details Visit Type -SN OASIS Recerti fication Discipline -Nursing Home Problems Problem Description Start Date Status Goals Interve ntions Homebound Status Disciplines: Nursing Home Patient's homebound status 10/23/2019 Active 1 goal linked to scheduled/documen bruno intervention 1 goal intervention scheduled/document ed in this visit Monitor patient's vital signs every home health visit Disciplines: Nursing Home Monitor patient's vital signs every home health visit. 10/23/2019 Active 1 goal linked to scheduled/documen bruno intervention 1 goal intervention scheduled/document ed in this visit Standardized Guidelines Disciplines: Nursing Home Standardized Guidelines 10/23/2019 Active 1 goal linked to scheduled/documen bruno intervention 1 goal intervention scheduled/document ed in this visit Wound Risk of Infection Disciplines: Nursing Home Risk of infections related to wounds 10/23/2019 Active 1 goal linked to scheduled/documen bruno intervention 4 goal interventions scheduled/document ed in this visit Wound Education and Management Disciplines: Nursing Home 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 10/23/2019 Active 1 goal linked to scheduled/documen bruno intervention 1 goal intervention scheduled/document ed in this visit Wound Care Disciplines: Nursing Home Wound care needed 10/23/2019 Active 1 goal linked to scheduled/documen bruno intervention 1 goal intervention scheduled/document ed in this visit Disease Management - Diabetes Disciplines: Nursing Home Management of diabetes symptoms 10/23/2019 Active 1 goal linked to scheduled/documen bruno intervention 1 goal intervention scheduled/document ed in this visit Learning/Teachi ng Needs - Diabetes Disciplines: Nursing Home Learning and teaching needs associated with [...] visit during episode of care Description: Home office clinician to measure vital signs during every home health visit during episode of care. Monitor patient's vital signs every home health visit No Understanding of when to notify MD in absence of home care staff Description: Understanding of when to notify MD in absence of home care staff Standardized Guidelines No Knowledgeable of infection Description: : Patient [...] health visit during episode of care Scheduled Home Care Staff Absence Description: In absence of Home Care staff the patient/caregiver should perfrom wound care Problem:Standardized Guidelines Goal:Understanding of when to notify MD in absence of home care staff Completed In absence of Home Care staff the patient/caregiver should perform wound care Disposal of Dressing Description: Dispose of soiled dressing by place in bag then place in patient's trashcan. Problem:Wound Risk of Infection Goal:Knowledgeable of infection Completed Dispose of soiled dressing by place in bag then place in patient's trashcan. Instruct Hand Washing Description: Instruct patient/caregiver on hand wash technique Problem:Wound Risk of Infection Goal:Knowledgeable of infection Completed Instruct patient/caregiver on hand wash technique, patient voice understanding Instruct patient/family/caregiv er on infection control and safe disposal of dressing materials Description: Instruct patient/caregiver on how to recognized signs and symptoms of infection and when to notify BOOK STORE ASSOCIATE and/or physician per Wound Education Booklet. Instruct [...] Risk of Infection Goal:Knowledgeable of infection Completed Assess wound with each visit for s/sx of infection. patiet V/U Demonstration of Wound Care Description: Patient/caregiver will complete a return demonstration on wound care to SN or PT. Observed return wound care on admission Problem:Wound Education and Management Goal:Knowledgeable on Woundcare Completed patient demostrated wound care to great toe and #4 toe on right foot. patient competent to self care for wound Perform dressing change Description: Perform dressing change to be done by pt/cg/sn. rt great toe and rt 4th toe. wrap with guaze and secure with tape. to be done daily and prn for drainage or dislodgement. Problem:Wound Care Goal:Progression towards healing Completed Perform dressing change to be done by pt. rt great toe and rt 4th toe. wrap with guaze and secure with tape. to be done daily and prn for drainage or dislodgement. Educate on foot care Description: Educate patient/caregiver on proper foot care. Problem:Disease Management - Diabetes Goal:Verbalize prevention of infection Completed Patient educated on proper foot care. keeping feet dry, especially between the toes. patient instructed to inspect each foot and toes daily looking for lesions, bruising and other anomolies. Patient V/U Blood glucose monitoring Description: Patient/caregiver to perform blood sugar testing and record in log. Frequency of testing bid and prn for feelings of hypo or hyperglycemia Problem:Learning/Teac jasiel Needs - Diabetes Goal:Demonstrate adequate knowledge of Diabetes Completed documented in this encounter Care Teams Casing In Line Setter Relationship Specialty Start Date End Date Cherelle Corcoran MD PCP - General Family Medicine 08/30/19 Mark Queen MD Consulting Physician Infectious Diseases 01/10/20 documented as of this encounter
--- OUTSIDE RECORDS SUMMARY | 2024-07-04 04:24 | XMS_ITS | Encounter Summary ---
Author Organization [facility] Healthcare Address [address] [place] [address] Care Team Providers Care Dynamic Etching Processor Name Role Phone Cherelle Corcoran MD Primary Care Pro vider Encounter Details Date Type Department Care Team (Latest Contact Info) Description 12/27/2019 1:48 PM CDT - 12/27/2019 11:59 PM CDT Hospital Encounter 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, with necrosis of bone (HCC) Drink 30ml daily 887 mL 10/27/2019 0 Basaglar ShyanneikPen U-100 Insulin 100 unit/mL (3 mL) insulin [...] Contact Info) Description 07/13/2024 9:00 AM DAIRY HUSBANDRY TEACHER Hospital Encounter [facility] GI Lab [address] [place] [address] aJya Grier MD [facility] [address] [place] [address] 07/13/2024 9:00 AM DAIRY HUSBANDRY TEACHER - 07/13/2024 9:30 AM [facility] Surgery [facility] GI Lab [address] [place] [address] Jaya Grier MD [address] [place] [address] DR [address] [place] [address] ESOPHAGOGASTRODUODENOSCOPY Scheduled Procedures Name Priority Associated Diagnoses Date/Ti me ESOPHAGOGASTRODUODENOSCOPY Anemia, unspecified type Gastritis without bleeding, unspecified chronicity, unspecified gastritis type 07/13/2024 9:00 AM DAIRY HUSBANDRY TEACHER COLONOSCOPY Iron deficiency anemia due to chronic blood loss documented as of this encounter Visit Diagnoses Not on filedocumented in this encounter Care Teams Dynamic Etching Processor Relationship Specialty Start Date End Date Cherelle Corcoran MD PCP - General Family Medicine 08/30/19 documented as of this encounter
--- OUTSIDE RECORDS SUMMARY | 2024-07-04 04:24 | XMS_ITS | Encounter Summary ---
Author Organization [facility] Healthcare Address [address] [place] [address] Care Team Providers Care Test Eng Name Role Phone Cherelle Corcoran MD Primary Care Pro vider Encounter Details Date Type Department Care Team (Late st Contact Info) Description 12/14/2019 3:10 PM CDT Lab [facility] [address] [place] [address] Social History Tobacco Use Types Packs/Day Years Used Date Smoking Tobacco: Never Smokeless Tobacco: Never Alcohol Use Standard Drinks/Week Comments Not Currently 0 (1 standard drink = 0.6 oz pur e alcohol) PHQ-2 Answer Date Recorded PHQ-2 Score 0 08/30/2019 Comments No Sex and Gender Information Value Date Recorded Sex Assigned at Not on file Legal Sex Female 9:03 AM ZONE SUPERVISOR FIREARMS Gender Identity Female 02/08/2020 6:39 PM CDT Sexual Orientation Not on file documented as of this encounter Plan of Treatment Upcoming Encounters Date Type Department Care Team (Latest Contact Info) Description 07/13/2024 9:00 AM ZONE SUPERVISOR FIREARMS Hospital Encounter [facility] GI Lab [address] [place] [address] Jaya Grier MD [facility] [address] [address] 07/13/2024 9:00 AM ZONE SUPERVISOR FIREARMS - 07/13/2024 9:30 AM ZONE SUPERVISOR FIREARMS Surgery [facility] Lab [address] [place] [address] Jaya Grier MD [address] [address] ESOPHAGOGASTRODUODENOSCOPY Scheduled Procedures Name Priority Associated Diagnoses Date/Ti me ESOPHAGOGASTRODUODENOSCOPY Anemia, unspecified type Gastritis without bleeding, unspecified chronicity, unspecified gastritis type 07/13/2024 9:00 AM ZONE SUPERVISOR FIREARMS COLONOSCOPY Iron deficiency anemia due to chronic blood loss documented as of this encounter Visit Diagnoses Not on filedocumented in this encounter Care Teams Test Eng Relationship Specialty Start Date End Date Cherelle Corcoran MD PCP - General Family Medicine 08/30/19 documented as of this encounter
--- OUTSIDE RECORDS SUMMARY | 2024-07-04 04:24 | XMS_ITS | Encounter Summary ---
Author Organization [facility] Home Care Servic es Address [address] [place] [address] Phone Care Team Providers Care Nailing Machine Feeder Name Role Phone Cherelle Corcoran MD Primary Care Pro vider Reason for Visit * Auth/Cert Specialty Diagnoses / Procedures Referred By Contac t Referred To Contact Referral ID Status Reason Start Date Expiration Date Visits Re quested Visits Authorized [id number] 1 1 Encounter Details Date Type Department Care Team (Late st Contact Info) Description 12/16/2019 Home Care Visit [facility] [address] [address] [address] [place], [place] [id number] Faby Miller RN TRAVEL SCREENING CASE COMMUNICATION Social History [...] on file Legal Sex Female 9:03 AM CAM MAKER Gender Identity Female 02/08/2020 6:39 PM CDT Sexual Orientation Not on file documented as of this encounter Plan of Treatment Upcoming Encounters Date Type Department Care Team (Latest Contact Info) Description 07/13/2024 9:00 AM CAM MAKER Hospital Encounter [facility] GI Lab [address] [place] [address] Jaya Grier MD [address] [place] [address] [address] GAINES [address] [place] [address] 07/13/2024 9:00 AM CAM MAKER - 07/13/2024 9:30 AM CAM MAKER Surgery [facility] GI Lab [address] [place] [address] Jaya Grier MD [facility]0 [facility] [address] [place] [address] ESOPHAGOGASTRODUODENOSCOPY Scheduled Procedures Name Priority Associated Diagnoses Date/Ti me ESOPHAGOGASTRODUODENOSCOPY Anemia, unspecified type Gastritis without bleeding, unspecified chronicity, unspecified gastritis type 07/13/2024 9:00 AM CAM MAKER COLONOSCOPY Iron deficiency anemia due to chronic blood loss documented as of this encounter Visit Diagnoses Not on filedocumented in this encounter Care Teams Nailing Machine Feeder Relationship Specialty Start Date End Date Cherelle Corcoran MD PCP - General Family Medicine 08/30/19 documented as of this encounter
--- OUTSIDE RECORDS SUMMARY | 2024-07-04 04:24 | XMS_ITS | Encounter Summary ---
Author Organization [facility] Home Care Servic es Address [address] [place] [address] Phone Care Team Providers Care Supervisor Logging Name Role Phone Cherelle Corcoran MD Primary Care Pro vider Reason for Visit * Auth/Cert Specialty Diagnoses / Procedures Referred By Contac t Referred To Contact Referral ID Status Reason Start Date Expiration Date Visits Re quested Visits Authorized [id number] 1 1 Encounter Details Date Type Department Care Team (Late st Contact Info) Description 11/08/2019 Home Care Visit [facility] Home Health [address] [address] [address] [place], [place] [phone] Barb Ochoa RN TRAVEL SCREENING CASE COMMUNICATION [...] file Legal Sex Female 9:03 AM HEAD OF HOUSEKEEPING Gender Identity Female 02/08/2020 6:39 PM CDT Sexual Orientation Not on file documented as of this encounter Plan of Treatment Upcoming Encounters Date Type Department Care Team (Latest Contact Info) Description 07/13/2024 9:00 AM HEAD OF HOUSEKEEPING Hospital Encounter [facility] GI Lab [address] [place] [address] Jaya Grier MD [address] [place] [address] [address] GA[address]ES [address] [place] [address] 07/13/2024 9:00 AM HEAD OF HOUSEKEEPING - 07/13/2024 9:30 AM HEAD OF HOUSEKEEPING Surgery [facility] GI Lab [address] [place] [address] Jaya Grier MD [facility] [address] [place] [address] ESOPHAGOGASTRODUODENOSCOPY Scheduled Procedures Name Priority Associated Diagnoses Date/Ti me ESOPHAGOGASTRODUODENOSCOPY Anemia, unspecified type Gastritis without bleeding, unspecified chronicity, unspecified gastritis type 07/13/2024 9:00 AM HEAD OF HOUSEKEEPING COLONOSCOPY Iron deficiency anemia due to chronic blood loss documented as of this encounter Visit Diagnoses Not on filedocumented in this encounter Care Teams Supervisor Logging Relationship Specialty Start Date End Date Cherelle Corcoran MD PCP - General Family Medicine 08/30/19 documented as of this encounter
--- OUTSIDE RECORDS SUMMARY | 2024-07-04 04:24 | XMS_ITS | Encounter Summary ---
Author Organization [facility] Address [address] [place] [address] Care Team Providers Care Knockout Man Name Role Phone Cherelle Corcoran MD Primary Care Pro vider Reason for Referral * Diagnostic Imaging (Routine) - Closed Specialty Diagnoses / Procedures Referred By Contac t Referred To Contact Radiology Diagnoses Osteomyelitis of right foot, unspecified type (HCC) Procedures MRI Foot Right W WO Contrast Guy Walsh MD [address] [place] [address] [place] [address] Phone: tel: fax: [facility] [address] [place] [address] Referral ID Status Reason Start Date Expiration Date Visits Re quested Visits Authorized [id number] Closed 12/22/2019 07/02/2021 1 1 Reason for Visit * Reason Comments Follow-up 1m RLE ulcers Wound Care Xeroform between vale ry toe, gauze, coban dressing. Encounter Details Date Type Department Care Team (Late st Contact Info) Description 12/22/2019 3:15 PM CDT Office Visit [facility] Vascular and Vein Surgery [address] [place] [address] Cristóbal Peralta, JARAD [address] [facility] [address] [place] [address] Osteomyelitis of right foot, unspecified type (CMS/HCC) (Primary Dx); Ulcer of toe of right foot, with fat layer exposed (CMS/HCC); Essential hypertension Social History Tobacco Use Types Packs/Day Years Used Date Smoking Tobacco: Never Smokeless Tobacco: Never Alcohol Use Standard Drinks/Week Comments Not Currently 0 (1 standard drink = 0.6 oz pur e alcohol) PHQ-2 Answer Date Recorded PHQ-2 Score 0 08/30/2019 Comments No Sex and Gender Information Value Date Recorded Sex Assigned at Not on file Legal Sex Female 9:03 AM SOFTWARE SUPPORT TECHNICIAN Gender Identity Female 02/08/2020 6:39 PM CDT Sexual Orientation Not on file documented as of this encounter Last Filed Vital Signs Vital Sign Reading Time Taken Comments Blood Pressure 140/70 12/22/2019 3:33 PM CDT Pulse 91 12/22/2019 3:33 PM CDT Temperature - - Respiratory Rate - - Oxygen Saturation - - Inhaled Oxygen Concentration - - Weight 56.2 kg (124 lb) 12/22/2019 3:33 PM CDT Height 157.5 cm (5' 2 ) 12/22/2019 3:33 PM CDT Body Mass Index 22.68 12/22/2019 3:33 PM CDT documented in this encounter Ordered Prescriptions Prescription Sig Dispense Quantity Refills Last Filled Start Date End Date ciprofloxacin (CIPRO) 500 mg tablet Take 1 tablet (500 mg total) by mouth 2 (two) times a day for 14 days 28 tablet 12/22/2019 01/11/2020 documented in this encounter Progress Notes * Cristóbal Peralta NP - 12/22/2019 3:15 PM CDT Images from the original note were not included. Subjective/Objective Patient ID: Sixto Chakraborty is a 69 y.o. female. Chief Complaint Follow-up (1m RLE ulcers) and Wound Care (Xeroform between every toe, gauze, coban dressing. ) History of Present Illness 69-year-old female with history of schizophrenia, diabetes and peripheral neuropathy returns today for evaluation of ulceration of the toes of right foot. Patient has ulceration to her right 1st toe and also interdigital ulcerations of her 2nd 3rd 4th and 5th toes. She had MRI performed in September which revealed acute osteomyelitis of her 1st toe which was improving with local wound care and antibiotic therapy. She is receiving assistance from home health with dressing changes. Patient states her ulcerations have worsened over the past week. With increased drainage, erythema and edema of her right foot. The patient is accompanied by her daughter today and states she has been minimallycompliant with local wound care. She denies any fevers or chills currently. Current Outpatient Medications: ??? amino acids-protein hydr-fiber 15-90 gram-kcal/30 mL liquid, Drink 30ml daily, Disp: 887 mL, Rfl: 0 ??? Basaglar KwikPen U-100 Insulin 100 unit/mL (3 mL) insulin pen, Inject 27 Units under the skin nightly (Patient taking differently: Inject 24 Units under the skin nightly ), Disp: 3 pen, Rfl: 1 ??? cholecalciferol (Vitamin D3) 1,000 unit capsule, Take 1,000 Units by mouth daily. Indications: low vitamin D levels, Disp: , Rfl: ??? collagenase (SANTYL) ointment, Apply topically daily, Disp: 30 g, Rfl: 0 ??? gabapentin (NEURONTIN) 400 mg capsule, Take 1 capsule (400 mg total) by mouth 3 (three) times aday, Disp: 270 capsule, Rfl: 1 ??? insulin syringe-needle U-100 (BD Insulin Syringe Ultra-Fine) 1 mL 31 gauge x 5/16 syringe, 3 times a day, Disp: , Rfl: ??? lisinopriL (PRINIVIL,ZESTRIL) 10 mg tablet, Take 1 tablet (10 mg total) by mouth daily, Disp: 30 tablet, Rfl: 5 ??? pen needle, diabetic 32 gauge x 3/16 needle, Once a day, Disp: , Rfl: ??? VALERIAN ROOT ORAL, Take 530 mg by mouth daily. Indications: relaxation, Disp: , Rfl: ??? Victoza 2-Vivek 0.6 mg/0.1 mL (18 mg/3 mL) injection, Inject 1.2 mg under the skin daily, Disp: 6mL, Rfl: 1 ??? ciprofloxacin (CIPRO) 500 mg tablet, Take 1 tablet (500 mg total) by mouth 2 (two) times a day for 14 days, Disp: 28 tablet, Rfl: 0 No Known Allergies Past [...] on phone: None Gets together: None Attends baptist service: None Active member of club or organization: None Attends meetings of clubs or organizations: None Relationship status: None ??? Intimate partner violence Fear of current or ex partner: None Emotionally abused: None Physically abused: None Forced sexual activity: None Other Topics Concern ??? None Social History Narrative ??? None Review of Systems Constitutional: No change in appetite. No recent weight loss. No fevers,chills or sweats. HENT: No trouble swallowing. No tinnitus. Eyes: No visual disturbances. Respiratory: No shortness of breath. No cough or sputum production. No wheezing. Cardiovascular: No chest pain. No palpitations. Gastrointestinal: No abdominal pain. No nausea, vomiting or diarrhea. Genitourinary: No dysuria. No hematuria. Extremities: No claudication. No rest pain. No ulcerations. No infections. Musculoskeletal: No joint pains. No back pain. No myalgias. Neurologic: No dizziness. No syncope. No weakness. Endocrine: No polydipsia, polyphagia or polyuria. Skin: No rashes. No discoloration. Hematologic: No bleeding. No easy bruising. Psychiatric: No anxiety. No behavioral changes. No mood swings. Physical Exam Constitutional: Alert and oriented. Eyes: Extraocular movements full, sclerae anicteric. HENT: Head atraumatic and normocephalic. Neck is supple. No carotid bruits. Chest: Effort normal. Breath sounds normal. Cardiovascular: S1 and S2 are normal. No murmurs, rubs or gallops appreciated. Extremities: Worsening interdigital ulcerations of her right foot with edema and erythema. Abdominal: Soft, nontender, no masses. Normal bowel sounds. Musculoskeletal: Normal range of motion. Neurologic: Cranial nerves 2-12 intact. Strength and sensation intact bilaterally. Skin: Warm and dry. No rashes. No discoloration. Hematologic/Lymphatic: No adenopathy, no ecchymoses. Psychiatric: Normal mood and affect. Behavior normal.Judgment normal. Assessment/Plan Diagnoses and all orders for this visit: Osteomyelitis of right foot, unspecified type (CMS/HCC) (M86.9) (Primary) - MRI Foot Right W WO Contrast; Future Ulcer of toe of right foot, with fat layer exposed (CMS/HCC) (L97.512) Assessment & Plan: Impression: Worsening ulcerations of her right toes. Previous MRI performed in September revealed acuteosteomyelitis of her right 1st toe. Initially her [...] discussion of MRI results and further treatment. Essential hypertension (I10) Assessment & Plan: Impression: Stable hypertension. Plan: Continue current antihypertensive regimen as directed by PCP. Other orders - ciprofloxacin (CIPRO) 500 mg tablet; Take 1 tablet (500 mg total) by mouth 2 (two) times a day for 14 days Cristóbal Peralta NP Cosigned by Guy Walsh MD at 12/27/2019 8:59 AM CDT documented in this encounter Miscellaneous Notes * Assessment & Plan Note - Cristóbal Peralta NP - 12/26/2019 11:38 AM CDT Associated Problem(s): Ulcer of toe of right foot, with fat layer exposed (HCC) (Resolved 08/28/2020) Impression: Worsening ulcerations of her right toes. Previous MRI performed in September revealed acuteosteomyelitis of her right 1st toe. Initially her [...] discussion of MRI results and further treatment. * Assessment & Plan Note - Cristóbal Peralta NP - 12/26/2019 11:38 AM CDT Associated Problem(s): Primary hypertension Impression: Stable hypertension. Plan: Continue current antihypertensive regimen as directed by PCP. documented in this encounter Plan of Treatment Upcoming Encounters Date Type Department Care Team (Latest Contact Info) Description 07/13/2024 9:00 AM SOFTWARE SUPPORT TECHNICIAN Hospital Encounter [facility] GI Lab [address] [place] [address] Jaya Grier MD [address] [place] [address] [address] GA[address]ES [address] [place] [address] 07/13/2024 9:00 AM SOFTWARE SUPPORT TECHNICIAN - 07/13/2024 9:30 AM SOFTWARE SUPPORT TECHNICIAN Surgery [facility] GI Lab [address] [place] [address] Jaya Grier MD [facility] [facility] [facility] [place] [address] ESOPHAGOGASTRODUODENOSCOPY Scheduled Procedures Name Priority Associated Diagnoses Date/Ti me ESOPHAGOGASTRODUODENOSCOPY Anemia, unspecified type Gastritis without bleeding, unspecified chronicity, unspecified gastritis type 07/13/2024 9:00 AM SOFTWARE SUPPORT TECHNICIAN COLONOSCOPY Iron deficiency anemia due to chronic blood loss documented as of this encounter Results * MRI Foot Right W WO Contrast (12/26/2019 8:45 PM CDT) Anatomical Region Laterality Modality Lower Extremities Right Magnetic Reson ance 12/27/2019 10:3 3 AM CDT Narrative 12/27/2019 1:44 PM CDT Patient Name: SIXTO CHAKRABORTY ?Ordering Dr: Guy Walsh MD ?? D.O.B: 1950 ? Exam Date: 12/26/19 ?? 2044 ?? Age: 69 ?Sex: Female ? MR#: [id number] ?? Loc: ? RADIOLOGY REPORT ?? Order #[id number] ?? Magnetic Resonance Imaging ? MRI Foot [...] 1:44 PM ?? T: ? Report ID: [id number] ?? Reading Location: ??[id number] ? REPORT ELECTRONICALLY SIGNED IN OTHER VENDOR SYSTEM ?? Resulting Agency Comment O Procedure Note Pily Phan MD - 12/27/2019 Patient Name: DENADavid Dr: Guy Walsh MD D.O.B: 1950 Exam Date: 12/26/192044 Age: 69 Sex: Female MR#: [id number] Loc: RADIOLOGY REPORT Order #[id number] Magnetic Resonance Imaging MRI Foot Right W/WO [...] signed by Pily BROWNE T: Report ID: [id number] Reading Location: [place] [address] REPORT ELECTRONICALLY SIGNED IN OTHER VENDOR SYSTEM us Guy Walsh MD IMG MRI PROCEDURES Final Re sult documented in this encounter Visit Diagnoses Diagnosis Osteomyelitis of right foot, unspecified type (HCC)- Primary Ulcer of toe of right foot, with fat layer exposed (HCC) Essential hypertension Unspecified essential hypertension Osteomyelitis of right foot, unspecified type (HCC) Anemia, unspecified type Gastritis without bleeding, unspecified chronicity, unspecified gastritis type documented in this encounter Care Teams Knockout Man Relationship Specialty Start Date End Date Cherelle Corcoran MD PCP - General Family Medicine 08/30/19 documented as of this encounter
--- OUTSIDE RECORDS SUMMARY | 2024-07-04 04:24 | XMS_ITS | Encounter Summary ---
Author Organization [facility] Address [address] [place] [address] Phone Care Team Providers Care Cloth Packer Name Role Phone Cherelle Corcoran MD Primary Care Pro vider Reason for Visit * Auth/Cert Specialty Diagnoses / Procedures Referred By Contac t Referred To Contact Referral ID Status Reason Start Date Expiration Date Visits Re quested Visits Authorized [id number] 1 1 Encounter Details Date Type Department Care Team (Late st Contact Info) Description 12/15/2019 Home Care Visit [facility] [address] [address] [address] [place] [address] Faby Miller RN TELEPHONE ENCOUNTER Social History Tobacco Use Types Packs/Day Years Used Date Smoking Tobacco: Never Smokeless Tobacco: Never Alcohol Use Standard Drinks/Week Comments Not Currently 0 (1 standard drink = 0.6 oz pur e alcohol) PHQ-2 Answer Date Recorded PHQ-2 Score 0 08/30/2019 Comments No Sex and Gender Information Value Date Recorded Sex Assigned at Not on file Legal Sex Female 9:03 AM FASHION MODEL Gender Identity Female 02/08/2020 6:39 PM CDT Sexual Orientation Not on file documented as of this encounter Plan of Treatment Upcoming Encounters Date Type Department Care Team (Latest Contact Info) Description 07/13/2024 9:00 AM FASHION MODEL Hospital Encounter [facility] GI Lab [address] [place] [address] Jaya Grier MD [facility] [facility] [address] [place] [address] 07/13/2024 9:00 AM FASHION MODEL - 07/13/2024 9:30 AM FASHION MODEL Surgery [facility] GI Lab [address] [place] [address] Jaya Grier MD [facility] [facility] [address] [place] [address] ESOPHAGOGASTRODUODENOSCOPY Scheduled Procedures Name Priority Associated Diagnoses Date/Ti me ESOPHAGOGASTRODUODENOSCOPY Anemia, unspecified type Gastritis without bleeding, unspecified chronicity, unspecified gastritis type 07/13/2024 9:00 AM FASHION MODEL COLONOSCOPY Iron deficiency anemia due to chronic blood loss documented as of this encounter Visit Diagnoses Not on filedocumented in this encounter Care Teams Cloth Packer Relationship Specialty Start Date End Date Cherelle Corcoran MD PCP - General Family Medicine 08/30/19 documented as of this encounter
--- OUTSIDE RECORDS SUMMARY | 2024-07-04 04:24 | XMS_ITS | Encounter Summary ---
Author Organization [facility] Address [address] [place] [address] Care Team Providers Care Char House Supervisor Name Role Phone Cherelle Corcoran MD Primary Care Pro vider Reason for Visit * Reason Comments Follow-up r foot ulcer- mri re view Encounter Details Date Type Department Care Team (Late st Contact Info) Description 12/29/2019 3:45 PM CDT Office Visit [facility] Medical [facility] Vascular and Vein Surgery [address] [facility] [place] [address] Guy Walsh MD [address] [place] [address] Osteomyelitis (CMS/HCC) (Primary Dx); Acute osteomyelitis of toe of right foot (CMS/HCC); Essential hypertension; Diabetes (CMS/HCC) Social History Tobacco Use Types Packs/Day Years Used Date Smoking Tobacco: Never Smokeless Tobacco: Never Alcohol Use Standard Drinks/Week Comments Not Currently 0 (1 standard drink = 0.6 oz pur e alcohol) PHQ-2 Answer Date Recorded PHQ-2 Score 0 08/30/2019 Comments No Sex and Gender Information Value Date Recorded Sex Assigned at Not on file Legal Sex Female 9:03 AM FEATURES EDITOR Gender Identity Female 02/08/2020 6:39 PM CDT Sexual Orientation Not on file documented as of this encounter Last Filed Vital Signs Vital Sign Reading Time Taken Comments Blood Pressure 146/70 12/29/2019 4:04 PM CDT Pulse 96 12/29/2019 4:04 PM CDT Temperature 37.4 ??C (99.4 ??F) 12/29/2019 4:04 PM CD T Respiratory Rate - - Oxygen Saturation - - Inhaled Oxygen Concentration - - Weight - - Height - - Body Mass Index - - documented in this encounter Progress Notes * Emy Yi PA - 12/29/2019 3:45 PM CDT Course Subjective/Objective Patient ID: Barbara Chakraborty is a 69 y.o. female. Chief Complaint Follow-up (r foot ulcer- mri review) HPI 69-year-old female with history of schizophrenia, diabetes and peripheral neuropathy returns today for evaluation of ulceration of the toes of right foot. Patient has ulceration to her right 1st toe and also interdigital ulcerations of her 2nd 3rd 4th and 5th toes. She presents today for routine follow-up regarding a recent MRI performed on 12/27/2019. She is receiving assistance from home healthwith dressing changes. Patient states ulcerations have remained stable since her last office visit.With increased drainage, erythema and edema of her right foot. The patient is accompanied by her daughter today and states she has been minimally compliant with local wound care. She denies any [...] vitamin D levels, Disp: , Rfl: ??? ciprofloxacin (CIPRO) 500 mg tablet, Take 1 tablet (500 mg total) by mouth 2 (two) times a day for 14 days, Disp: 28 tablet, Rfl: 0 ??? collagenase (SANTYL) ointment, Apply topically daily, [...] skin daily, Disp: 6mL, Rfl: 1 ??? cefdinir (OMNICEF) 300 mg capsule, , Disp: , Rfl: No Known Allergies Past Medical History: Diagnosis [...] on phone: None Gets together: None Attends protestant service: None Active member of club or organization: None Attends meetings of clubs or organizations: None Relationship status: None ??? Intimate partner violence Fear of current or ex partner: None Emotionally abused: None Physically abused: None Forced sexual activity: None Other Topics Concern ??? None Social History Narrative ??? None ROS Constitutional: Negative for activity change, chills, diaphoresis and fever. Head: Negative for headache. ENT: Negative for sore throat, tooth ache, ear ache. Respiratory: Negative for cough and shortness of breath. Cardiovascular: Negative for chest pain, palpitations and leg swelling. Gastrointestinal: Negative for abdominal pain, constipation, diarrhea, nausea and vomiting. Genitourinary: Negative for flank pain. Musculoskeletal: Negative for arthralgias, back pain, edema. Skin: Negative for wounds or ulcerations Neurological: Negative for dizziness, syncope, facial asymmetry and speech difficulty. PE Constitutional: Patient is oriented to person, place, and time. Pateint appears well-developed and well-nourished. No distress. Head: Normocephalic and atraumatic. Neck: Normal range of motion. Neck supple. Carotid bruit is not present. Cardiovascular: Normal rate and regular rhythm. Pulmonary/Chest: Effort normal and breath sounds normal. No accessory muscle usage. Abdominal: Soft. Bowel sounds are normal. Patient exhibits no distension and no mass. There is no tenderness. Extremities: Femoral, popliteal and distal pulses palpable bilaterally. Intra digital ulcerations to right 1st, 2nd, 3rd, 4th toes relatively superficial, not associated with significant erythema. Edema noted to right foot. Neurological: Cranial nerves 2-12 intact. Strength and sensation intact bilaterally. Skin: Warm and dry. No rashes. No discoloration. Psychiatric: Appropriate mood and affect. Imaging The following diagnostic imaging visualized and reviewed by myself. MRI of the right foot performed on 12/26/2019 reveals osteomyelitis to right 1st, 2nd, 4th toes. Assessment/Plan Diagnoses and all orders for this visit: Osteomyelitis (CMS/HCC) (M86.9) (Primary) - Ambulatory referral to Pulmonology; Future Acute osteomyelitis of toe of right foot ([facility]/HCC) (M86.171) Essential hypertension (I10) Diabetes ([facility]/HCC) (E11.9) Impression: Patient with osteomyelitis to her right 1st, 2nd, 4th toes on recent MRI. Clinically patient's ulcerations are not severe. Would like to avoid any surgical or procedural intervention currently. Plan: Continue daily dressing changes utilizing triple antibiotic ointment, and gauze in between the toes. Will avoid surgery currently, and refer patient to infectious disease for possible initiation of long-term IV antibiotics for toe salvage. Will have patient follow-up in 1 month for re-evaluation. Impression: Stable blood pressure control use medication, per patient. Plan: Further management as per primary care provider Impression: Stable glucose control use medication, per patient. Plan: Further management as per primary care provider Emy Yi PA-C Cosigned by Guy Walsh MD at 01/03/2020 8:29 AM CDT documented in this encounter Plan of Treatment Upcoming Encounters Date Type Department Care Team (Latest Contact Info) Description 07/13/2024 9:00 AM FEATURES EDITOR Hospital [facility] [address] [place] [address] Jaya Grier MD [address] [place] [address] [address] [place] [address] 07/13/2024 9:00 AM FEATURES EDITOR - 07/13/2024 9:30 AM FEATURES EDITOR Surgery [facility] [address] [place] [address] Jaya Grier MD [address] [place] [address] [address] [place] [address] ESOPHAGOGASTRODUODENOSCOPY Scheduled Procedures Name Priority Associated Diagnoses Date/Ti sd ESOPHAGOGASTRODUODENOSCOPY Anemia, unspecified type Gastritis without bleeding, unspecified chronicity, unspecified gastritis type 07/13/2024 9:00 AM FEATURES EDITOR COLONOSCOPY Iron deficiency anemia due to chronic blood loss documented as of this encounter Visit Diagnoses Diagnosis Osteomyelitis (HCC)- Primary Unspecified osteomyelitis, site unspecified Acute osteomyelitis of toe of right foot (HCC) Essential hypertension Unspecified essential hypertension Diabetes (HCC) Type II or unspecified type diabetes mellitus without mention of complication, not stated as uncontrolled Anemia, unspecified type Gastritis without bleeding, unspecified chronicity, unspecified gastritis type documented in this encounter Historical Medications * This list may reflect changes made after this encounter. Medication Sig Dispense Quantity Refills Last Filled Start D ate End Date cefdinir (OMNICEF) 300 mg capsule 12/21/2019 01/04/2020 added in this encounter Care Teams Char House Supervisor Relationship Specialty Start Date End Date Cherelle Corcoran MD PCP - General Family Medicine 08/30/19 documented as of this encounter
--- OUTSIDE RECORDS SUMMARY | 2024-07-04 04:24 | XMS_ITS | Encounter Summary ---
Author Organization [facility] Address [address] [place] [address] Phone Care Team Providers Care Phlebotomy Program Coordinator Name Role Phone Cherelle Corcoran MD Primary Care Pro vider Reason for Visit * Reason Comments Wound Care * Auth/Cert Specialty Diagnoses / Procedures Referred By Contac t Referred To Contact Referral ID Status Reason Start Date Expiration Date Visits Re quested Visits Authorized [id number] 1 1 Encounter Details Date Type Department Care Team (Late st Contact Info) Description 11/08/2019 2:30 PM CDT Home Care Visit [facility] [address] [address] [address] [place] [address] Barb Ochoa RN SN HOME VISIT Social [...] on file Legal Sex Female 9:03 AM MILK [employer]NER Gender Identity Female 02/08/2020 6:39 PM CDT Sexual Orientation Not on file documented as of this encounter Last Filed Vital Signs Vital Sign Reading Time Taken Comments Blood Pressure 130/80 11/08/2019 12:18 PM CDT Pulse 74 11/08/2019 12:18 PM CDT Temperature 36.1 ??C (97 ??F) 11/08/2019 12:18 PM CDT Respiratory Rate 18 11/08/2019 12:18 PM CDT Oxygen Saturation 98% 11/08/2019 12:18 PM CDT Inhaled Oxygen Concentration - - Weight - - Height - - Body Mass Index - - documented in this encounter Plan of Treatment Upcoming Encounters Date Type Department Care Team (Latest Contact Info) Description 07/13/2024 9:00 AM MILK [facility]NER Hospital Encounter [facility] [address] [place] [address] Jaya Grier MD [facility] [facility] [address] [place] [address] [place] [id number] 07/13/2024 9:00 AM MILK [employer]NER - 07/13/2024 9:30 AM [facility]NER Surgery [facility] [address] [place] [address] Jaya Grier MD [address] [place] [address] [place] [id number] ESOPHAGOGASTRODUODENOSCOPY Scheduled Procedures Name Priority Associated Diagnoses Date/Ti me ESOPHAGOGASTRODUODENOSCOPY Anemia, unspecified type Gastritis without bleeding, unspecified chronicity, unspecified gastritis type 07/13/2024 9:00 AM [facility]NER COLONOSCOPY Iron deficiency anemia due to chronic blood loss documented as of this encounter Visit Diagnoses Not on filedocumented in this encounter Home Health Visit - Care Plan Visit Details Visit Type -SN Home Visit Discipline -Mcc Problems Problem Description Start Date Status Goals Interve ntions Homebound Status Disciplines: Mcc Patient's homebound status 10/23/2019 Active 1 goal linked to scheduled/documen bruno intervention 1 goal intervention scheduled/document ed in this visit Monitor patient's vital signs every home health visit Disciplines: Mcc Monitor patient's vital signs every home health visit. 10/23/2019 Active 1 goal linked to scheduled/documen bruno intervention 1 goal intervention scheduled/document ed in this visit Infection Prevention Disciplines: Mcc Infection Prevention 10/23/2019 Active 1 goal linked to scheduled/documen bruno intervention 1 goal intervention scheduled/document ed in this visit Pain Disciplines: Mcc Alteration in comfort 10/23/2019 Active 1 goal linked to scheduled/documen bruno intervention 1 goal intervention scheduled/document ed in this visit Wound Risk of Infection Disciplines: Mcc Risk of infections related to wounds 10/23/2019 Active 1 goal linked to scheduled/documen bruno intervention 2 goal interventions scheduled/document ed in this visit Wound Education and Management Disciplines: Mcc 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 10/23/2019 Active 1 goal linked to scheduled/documen bruno intervention 1 goal intervention scheduled/document ed in this visit Wound Care Disciplines: Mcc Wound care needed 10/23/2019 Active 1 goal linked to scheduled/documen bruno intervention 2 goal interventions scheduled/document ed in this visit Disease Management - Diabetes Disciplines: Mcc Management of diabetes symptoms 10/23/2019 Active 1 goal linked to scheduled/documen bruno intervention 1 goal intervention scheduled/document ed in this visit Learning/Teachi ng Needs - Diabetes Disciplines: Mcc Learning and teaching needs associated with diagnosis [...] visit during episode of care Description: Home bait man to measure vital signs during every home health visit during episode of care. Monitor patient's vital signs every home health visit No Verbalize signs of infection Description: Verbalize signs of infection Infection Prevention No Report that pain has been reduced [...] is homebound due to unsteady gait, diabetis, neuropathy and risk for falls. Monitor Vital Signs Description: Monitor blood pressure, [...] Goal:Verbalize signs of infection Completed instructed to report increase in redness, swelling, or pain to left foot. instructed to report any new open areas or drainage. understanding expressed. Instruct on pain management techniques Description: Instruct in pharmacologic and nonpharmacologic pain management techniques. Problem:Pain Goal:Report that pain has been reduced or controlled Completed instructed to report if pain is not relieved to an acceptable level. understanding expressed. Instruct Hand Washing Description: Instruct patient/caregiver on hand wash technique Problem:Wound Risk of Infection Goal:Knowledgeable of infection Completed instructed to wash hands before and after doing wound care. understanding expressed. Instruct on the signs and symptoms of infection Description: Assess wound with each visit for s/sx of infection Problem:Wound Risk of Infection Goal:Knowledgeable of infection Completed isntructed to report incresase in redness, pain, new open areas, fever or increase in drainage. understanding expressed. Demonstration of Wound Care Description: Patient/caregiver will complete a return demonstration on wound care to SN or PT. Observed return wound care on admission Problem:Wound Education and Management Goal:Knowledgeable on Woundcare Completed pt able to do wound care as ordered. Skilled assessment wound Description: Full wound assessment [...] wound care as per plan of care. Assess Diabetes: Monitor for the presence of skin lesions on the lower extremity Description: Monitor for the presence of skin lesions on the lower extremity. Problem:Disease Management - Diabetes Goal:Verbalize prevention of infection Completed instructed to check feet and legs daily for new red or open areas. understanding expressed. Instruct diet Description: Instruct on diabetic diet. instructed to limit sugars and carbs. Problem:Learning/Tea dena Needs - Diabetes Goal:Demonstrate adequate knowledge of Diabetes Completed instructed to limit sugar intake and to limit carbs to help control bs. understanding expressed. Blood glucose monitoring Description: Patient/caregiver to perform blood sugar testing and record in log. Frequency of testing bid and prn for feelings of hypo or hyperglycemia Problem:Learning/Tea dena Needs - Diabetes Goal:Demonstrate adequate knowledge of Diabetes Completed pt is not checking bs daily as ordered. instructed to leave machine in the same place so she will remember to check it. understanding expressed. documented in this encounter Care Teams Phlebotomy Program Coordinator Relationship Specialty Start Date End Date Cherelle Corcoran MD PCP - General Family Medicine 08/30/19 documented as of this encounter
--- OUTSIDE RECORDS SUMMARY | 2024-07-04 04:24 | XMS_ITS | Encounter Summary ---
Author Organization [facility] Address [address] [place] [address] Care Team Providers Care Packaging Coordinator Name Role Phone Cherelle Corcoran MD Primary Care Pro vider Encounter Details Date Type Department Care Team (Late st Contact Info) Description 01/06/2020 1:38 PM CDT - 01/06/2020 2:53 PM CDT Surgery [facility] Operating Room [address] [place] [address] Anat Pelayo DPM [address] [place] [id number] AMPUTATION 4th toe right foot with wound debridement and bone biopsy. Surgery Details Date/Time Status Location OR Service Patient Class Case Class Case Type Trauma Case? 01/06/2020 1:38 PM Posted [facility] OPERATING ROOM OR Podiatry Foot / Ankle Inpatient Elective Panel 1 Procedure LRB Anes Op Region Wound Class Comments AMPUTATION 4th toe right foot with wound debridement and bone biopsy. 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 Gender Identity Female 02/08/2020 6:39 PM CDT Sexual Orientation Not on file documented as of this encounter Last Filed Vital Signs Vital Sign Reading Time Taken Comments Blood Pressure 155/84 01/06/2020 2:01 PM CDT Pulse 80 01/06/2020 2:01 PM CDT Temperature 36.4 ??C (97.5 ??F) 01/06/2020 2:01 PM CD T Respiratory Rate 18 01/06/2020 2:01 PM CDT Oxygen Saturation 100% 01/06/2020 2:01 PM CDT Inhaled Oxygen Concentration - - Weight 57.1 kg (125 lb 12.8 oz) 020 11:10 PM CDT Height 157.5 cm (5' 2.01 ) 01/05/2020 8:49 AM CD T Body Mass Index 23 01/04/2020 11:10 PM CDT documented in this encounter Discharge Summaries * Zahra Corona MD - 01/11/2020 4:58 PM CDT [place], [place] Hospitalist Discharge Summary Patient Name: Sixto Chakraborty Patient : 1950 Room/Bed: [id number] Admission Date/Time: 01/04/2020 5:43 PM Discharge date: [...] Lying Pulse: 108 90 91 76 Resp: 18 18 20 16 Temp: 37.1 ??C (98.8 ??F) 36.7 ??C (98.1 ??F) 36.9 ??C (98.4 ??F) 36.3 ??C (97.3 ??F) TempSrc: Temporal Temporal Temporal Temporal SpO2: 95% 91% 92% 92% Weight: Height: General: awake, alert, oriented. No acute distress Eyes: pupils are equal, no scleral icterus Neck: supple Pharynx: No gross oral lesion Lungs: clear to auscultation with no wheezes or rales Heart: [id number] Abd: +BS, Non Tender, Non distended Lower [...] Name: SIXTO CHAKRABORTY Ordering Dr: Guy Walsh MD D.O.B: 1950 Exam Date: 12/26/192044 Age: 69 Sex: Female MR#: [id number] Loc: RADIOLOGY REPORT Order #[id number] Magnetic Resonance Imaging MRI Foot Right W/WO Contrast Signed EXAM DESCRIPTION: MRI Foot Right W/WO Contrast REASON FOR STUDY: Wounds to dorsal/plantar surfaces between all toes. Wounds began in July shortly after getting nails trimmed. TECHNIQUE: Multiplanar, multisequence MRI of the right foot was performed before and after contrast. CONTRASTTYPE/DOSE: 11 cc Dotarem injected through the left [...] hallux sesamoid. Soft Tissues: Diffuse nonspecific soft tissueedema centered over dorsum of the foot. Diffuse [...] not excluded in the appropriate clinical setting andulceration. 3. 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 THIS IS AN ELECTRONICALLY VERIFIED FINAL REPORT 12/27/2019 1:44 PM - Electronically signed by Pily BROWNE T: Report ID: [id number] Reading Location: [place] [address] REPORT ELECTRONICALLY SIGNED IN OTHER VENDOR SYSTEM Transthoracic Echo Complete W Doppler/cf Result Date: 01/09/2020 Narrative: [address] [address] Echocardiogram Report Patient Name: SIXTO CHAKRABORTY : 1950 Study Date: 01/09/202013:05:18 Gender: F Tech: AA Location: [id number] Ref.Provider: MATHEW MCCULLOUGH Height(Cm): BSA: Weight(Kg): Quality: [...] ORDERING HEALTHCARE PROVIDER:EMILE ESCUDERO HISTORY: Atherosclerosis of [place] Arteries of Extremities with Intermittent Claudication, Bilateral [...] biopsy. Medications: Sixto Chakraborty Home Medication Instructions OSCAR:[id number] Printed on:01/11/20 4486 Medication Information docusate sodium (COLACE) 100 mg [...] Home Health and Infusion Primary disciplines requested: [facility]: Wound/ Ostomy Care Infusion [...] CBC, BMP, ESR- Please fax results to [phone] Good handwashing is the best way to prevent the spread of infection. It is important to take all medications as prescribed It is important to keep all scheduled appointment Routine PICC line care If you have any questions or concerns following discharge, please call U at [phone]. Disposition: home Outpatient Follow-Up: Contact Information for Follow-ups Erna Anthony MD Specialty: Infectious Diseases, Internal Medicine, Preventative Medicine, Wound Care Relationship: Consulting Physician [address] [address] Next Steps: Follow up Instructions: in 4 weeks. please call for your appointment time Questions: To provider: ERNA ANTHONY Instructions for follow-up (appointment date and time): in 4 weeks [facility] Specialty: Wound Care [address] [place] [address] Next Steps: Go to Instructions: 01/11 3:[address] [facility] Home Care Services Specialty: Home Health and Hospice [address] [place] [address] Next Steps: Follow up Questions: Service Line: Home Health and Infusion Primary disciplines requested: [facility]: Wound/ Ostomy Care Infusion [...] Specialty: Family Medicine Relationship: PCP - General [address] [place] [address] Next Steps: Follow up on 01/17/2020 Instructions: 10:30 AM Future Appointments Date Time Provider Department Center 01/12/2020 To Be Determined Brigid Keenan RN [facility] None 01/17/2020 10:30 AM Cheerlle Corcoran MD [facility] 230 MG Decent 02/02/2020 3:45 PM Guy Walsh MD [facility] 120 MG Decent Total time spent on day of discharge 35 minutes Signed: Zahra Corona MD Internal Medicine - Hospitalist [facility] 01/11/2020 4:58 PM Cc: Cherelle Corcoran MD * Zahra Corona MD - 01/10/2020 12:40 PM CDT [place], [place] Hospitalist Discharge Summary Patient Name: Sixto Chakraborty Patient : 1950 Room/Bed: [id number] Admission Date/Time: 01/04/2020 5:43 PM Discharge date: [...] auscultation with no wheezes or rales Heart: [id number] Abd: +BS, Non Tender, Non distended Lower [...] Date: 12/27/2019 Narrative: Patient Name: SIXTO CHAKRABORTY Lillie Dr: Guy Walsh MD, D.O.B: 1950 Exam Date: 12/26/192044 Age: 69 Sex: Female MR#: [id number] Loc: RADIOLOGY REPORT Order #[id number] Magnetic Resonance Imaging MRI Foot Right W/WO Contrast Signed EXAM DESCRIPTION: MRI Foot Right W/WO Contrast REASON FOR STUDY: Wounds to dorsal/plantar surfaces between all toes. Wounds began in July shortly after getting nails trimmed. TECHNIQUE: Multiplanar, multisequence MRI of the right foot was performed before and after contrast. CONTRASTTYPE/DOSE: 11 cc Dotarem injected through the left [...] hallux sesamoid. Soft Tissues: Diffuse nonspecific soft tissueedema centered over dorsum of the foot. Diffuse [...] not excluded in the appropriate clinical setting andulceration. 3. 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 THIS IS AN ELECTRONICALLY VERIFIED FINAL REPORT 12/27/2019 1:44 PM - Electronically signed by Pily BROWNE T: Report ID: [id number] Reading Location: [place] [address] REPORT ELECTRONICALLY SIGNED IN OTHER VENDOR SYSTEM Transthoracic Echo Complete W Doppler/cf Result Date: 01/09/2020 Narrative: [address] [address] Echocardiogram Report Patient Name: SIXTO CHAKRABORTY : 1950 Study Date: 01/09/202013:05:18 Gender: F Tech: AA Location: [id number] Ref.Provider: MATHEW MCCULLOUGH Height(Cm): BSA: Weight(Kg): Quality: [...] ACS MM 1.94 cm MV E Peak [place] 1.17 [ 0.60 - 1.30 ] m/s [...] ORDERING HEALTHCARE PROVIDER:EMILE ESCUDERO HISTORY: Atherosclerosis of [place] Arteries of Extremities with Intermittent Claudication, Bilateral [...] (3 mL) insulin pen Commonly known as: LANTUSBASAGLAR lisinopriL 10 mg tablet Commonly known as: [...] Home Health and Infusion Primary disciplines requested: [facility]: Wound/ Ostomy Care Infusion [...] questions or concerns following discharge, please call [facility] at [phone]. Disposition: home Outpatient Follow-Up: Contact Information for Follow-ups Erna [place] MD Specialty: Infectious Diseases, Internal Medicine, Preventative Medicine, Wound Care Relationship: Consulting Physician [address] [place] [address] [place] [address] Next Steps: Follow up Instructions: in 4 weeks Questions: To provider: ERNA ANTHONY Instructions for follow-up (appointment date and time): in 4 weeks [facility] Specialty: Wound Care [address] [place] [id number] Next Steps: Go on 01/13/2020 Instructions: 9:00am [facility] Home Care Services Specialty: Home Health and Hospice [address] [facility] [address] Next Steps: Follow up Questions: Service Line: Home Health and Infusion Primary disciplines requested: [facility]: Wound/ Ostomy Care Infusion [...] Other Follow-up Next Steps: Follow up Instructions: [facility] Questions: Instructions for follow-up (appointment date and time): [facility] Future Appointments Date Time Provider Department Center 02/02/2020 3:45 PM Guy Walsh MD [facility] 120 MG Decent Total time spent on day of discharge 32 minutes Signed: Zahra Corona MD Internal Medicine - Hospitalist [facility] 01/10/2020 12:40 PM Cc: Cherelle Corcoran MD documented in this encounter Discharge Instructions * Discharge Instr - Other Orders* Varsha Corrigan RN - 01/10/2020 10:39 AM CDT 1. Vancomycin 1 g IV every 12 hours x 6 weeks. Pharmacy to manage vanco troughs and dosing. 2. Weekly CBC, BMP, ESR- Please fax results to [phone] Good handwashing is the best way to prevent the spread of infection. It is important to take all medications as prescribed It is important to keep all scheduled appointment Routine PICC line care If you have any questions or concerns following discharge, please call [facility] at [phone]. * Attachments The following attachments cannot be sent through Care Everywhere. * Vancomycin (By injection) (Malian) * Hydrocodone/Acetaminophen (By mouth) (Malian) * Laxative, Stool Softeners (By mouth) (Malian) * How to Care for Your Peripherally Inserted Central Catheter (Discharge Care) (Malian) documented in this encounter Medications at Time of Discharge ferrous sulfate 325 mg (65 mg of elemental iron) tabletIndications: Iron Deficiency Anemia Take 1 tablet (325 mg total) by mouth daily with breakfast 30 tablet 01/11/2020 01/11/20 docusate sodium (COLACE) 100 mg capsuleIndications :constipation Take 1 capsule (100 mg total) by mouth 2 (two) times a day as needed for constipation 01/10/2020 04/13/20 21 gabapentin (NEURONTIN) 400 mg capsuleIndications :Other [...] hours Pharmacy to redose and manage level 29963 mL 1 01/10/2020 01/12/20 20 Victoza 2-Vivek [...] hours Pharmacy to redose and manage level 91687 mL 1 01/10/2020 0 documented in this encounter Discharge Disposition Disposition Code Departure Means Destination Discharge to home, home health skilled care documented in this encounter Progress Notes * Karolina Escalona [facility] - 01/11/2020 4:49 PM CDT Sixto Chakraborty [...] until that time. Thank you, Karolina Escalona [facility] Pharm[facility] department Electronically signed by Karolina Escalona [facility] at 01/11/2020 4:50 PM CDT * Beba Montejo [facility] - 01/11/2020 10:23 AM CDT Vancomycin order [...] 6 weeks Next level is ordered for: 01/11 1600 Pharmacy will continue to monitor daily. Thank you, Beba Montejo RPh [facility] Pharmacy department * Kelly Lynch NP - [...] Daily-2100 Emile Escudero MD 40 mg at 01/10/202114 ??? gabapentin (NEURONTIN) capsule 400 mg 400 mg oral TID Emile Escudero MD 400 mg at 01/11/20812 ??? glucagon injection 1 mg 1 mg intramuscular Q30 Min PRN Emile Escudero MD ??? hydrALAZINE (APRESOLINE) injection 10 mg 10 mg intravenous Q4H PRN Emile Escudero MD ??? HYDROcodone-acetaminophen (NORCO) 5-325 mg per tablet 1 tablet 1 tablet oral Q4H PRN Emile Escudero MD 1 tablet at 01/10/201815 ??? insulin glargine (LANTUS,BASAGLAR) pen injection 32 [...] PRN Mathew Mccullough MD 30 mL at 01/06/202232 ??? mineral oil (FLEET MINERAL OIL) enema [...] flush 5-10 mL 5-10 mL intra-catheter Q12H ON LICENSE OF [facility] Erna Anthony MD10 mL at 01/10/20 2114 ??? sodium chloride 0.9% flush 5-20 mL [...] file Gets together: Not on file Attends roman catholic service: Not on file Active member of [...] Uncontrolled type 2 diabetes mellitus with hyperglycemia ([facility]) Ulcer of toe of right foot, with fat layer exposed ([facility]) Essential hypertension Sixto Chakraborty is [...] CBC, BMP, ESR- Please fax results to [phone] 3. Follow-up with Dr. Anthony in 4 weeks Kelly Lynch NP [facility] [phone] * Daisy Green MSW - 01/10/2020 12:09 PM CDT 01/10/20 1207 Discharge Summary Chart reviewed For Medical Necessity Discharge Disposition Home with Home Health (PT/OT/RN);Home with IV Services (RN visits) Equipment/Provider Needs Home Equipment Needs Identified;Home Provider Services Needs Identified Home Care Agency Information Home Care Agency Type #1: [facility] Name [facility] Home Health Home Care Agency Discharge [...] Emile Escudero MD 2 Units at 01/09/20 170 ??? lisinopriL (PRINIVIL,ZESTRIL) tablet 10 mg 10 [...] file Gets together: Not on file Attends roman catholic service: Not on file Active member of [...] CBC, BMP, ESR- Please fax results to [phone] 3. Follow-up with Dr. Anthony in 4 weeks Kelly Lynch NP [facility] [phone] * Araceli Indira, RD - 01/10/2020 9:26 AM CDT Nutrition [...] carbohydrates at all . Left 1)my Plate Top Spotter 2)Simple Rules for Diabetes 3)Quick Starts for [...] to: Wounds Evidenced by: Physicalfinding ?? Interventions: [place] diet preferences within the limits of nutrition [...] (CMS/HCC) ??? Type 2 diabetes mellitus (CMS/HCC) Medications and Lab Review: Scheduled Meds: [...] : 01/13/[address],LDN * Yordy Escalona, [facility] - 01/10/2020 5:56 AM CDT Sixto Chakraborty [...] to monitor daily. Thank you, Yordy Escalona ricky [facility] Pharmacy department * Erna Anthony MD - [...] PRN Emile Escudero MD 650 mg at 01/07/20 2109 ??? amLODIPine (NORVASC) tablet 5 mg 5 [...] file Gets together: Not on file Attends roman catholic service: Not on file Active member of [...] Weekly CBC BMP ESR fax results to [phone] 4. Follow up w me in 4 weeks. Erna Anthony MD [facility] [phone] * Destin Pepper DPM - 01/09/2020 11:42 [...] Name: SIXTO CHAKRABORTY Ordering Dr: Guy Walsh MD D.O.B: 1950 Exam Date: 12/26/192044 Age: 69 Sex: Female MR#: [id number] Loc: RADIOLOGY REPORT Order #[id number] Magnetic Resonance Imaging MRI Foot Right W/WO [...] signed by Pily BROWNE T: Report ID: [id number] Reading Location: [id number] REPORT ELECTRONICALLY SIGNED IN OTHER VENDOR SYSTEM Us Arterial Doppler Lower Extremity Bilateral Result Date: 01/05/2020 Narrative: EXAMINATION: US ARTERIAL DOPPLER LOWER EXTREMITY BILATERAL ORDERING HEALTHCARE PROVIDER:EMILE ESCUDERO HISTORY: Atherosclerosis of [place] Arteries of Extremities with Intermittent Claudication, Bilateral [...] discharge patient will require outpatient f/u with [facility] Destin Pepper DPM * Anabel Palmer RP - 01/09/2020 6:44 AM CDT Vancomycin order [...] monitor daily. Thank you, Anabel Palmer RPh [facility] Pharmacy department * Mathew Mccullough MD - [...] tongue midline, mucosa moist Lungs CTA Heart: [id number] Abd: +BS, Non Tender, Non distended, No [...] Emile Escudero MD 5 mg at 01/07/20 09 ??? benzonatate (TESSALON) capsule 100 mg 100 [...] meals Emile Escudero MD 5 Units at 01/08/20 1721 ??? lisinopriL (PRINIVIL,ZESTRIL) tablet 10 mg 10 [...] doxy, clinda. 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 Thank you, Becky Ng [facility] Pharmacy department * Agus Golden DPM - [...] 01/08/2020 Time: 11:28 AM * Anabel Palmer [facility] - 01/08/2020 7:53 AM CDT Vancomycin order [...] to monitor daily. Thank you, Anabel Palmer ricky [facility] Pharmacy department * Mathew Mccullough MD - [...] tongue midline, mucosa moist Lungs CTA Heart: [id number] Abd: +BS, Non Tender, Non distended, No [...] Nightly Mathew Mccullough MD 32 Units at 01/07/202105 ??? insulin lispro (HumaLOG) pen injection 1-4 Units 1-4 Units subcutaneous Nightly Emile Escudero MD 4 Units at 01/07/202112 ??? insulin lispro (HumaLOG) pen injection 1-7 [...] 100 mL IVPB 2,000 mg intravenous Q12H SOL Mathew Mccullough MD 200 mL/hr at 01/07/20 [...] Nightly Emile Escudero MD 3 Units at 01/06/202229 ??? insulin lispro (HumaLOG) pen injection 1-7 [...] chloride (premix) 500 mg 500 mg intravenous Q8HSCH Emile Escudero MD 200 mL/hr at 01/07/20 [...] oral TID with meals Mathew Mccullough MD 500 mg at 01/07/20 0911 ??? [...] file Gets together: Not on file Attends roman catholic service: Not on file Active member of [...] For susceptibility results, refer to accession number [id number] on the right toe bone culture from [...] before placing final recommendations. Kelly Lynch NP [facility] [phone] Cosigned by Erna Anthony MD at 01/09/2020 [...] tongue midline, mucosa moist Lungs CTA Heart: [id number] Abd: +BS, Non Tender, Non distended, No [...] 100 mL IVPB 2,000 mg intravenous Q12H SOL Mathew Mccullough MD 200 mL/hr at 01/06/202106 [...] Emile Escudero MD 1 tablet at 01/07/20 0611 ??? [...] Mccullough MD 01/07/2020 7:20 AM * Anabel Palmer [facility] - 01/07/2020 6:44 AM CDT Vancomycin order [...] positive cocci Next level is ordered for: 01/08 1600 Pharmacy will continue to monitor daily. [facility] * Anabel Palmer [facility] - 01/07/2020 6:20 AM CDT Electrolyte monitoring performed by pharmacy on labs from 01/06 (date & time), Na+=139 K+=4.3 Mg+=2.2 Phos=1.8 Phosphorus tablet , 2 tabs TID x 3 doses replacement ordered. Pharmacy will continue to follow daily. Thank you, Anabel Palmer [facility] Pharmacy department * Anabel Palmer [facility] - 01/06/2020 5:27 PM CDT Sixto Chakraborty has been consulted for vancomycin dosing for bone/joint infection. Increase vancomycin dose to 1000 mg every 24 hours for subtherapeutic level of 6.1 on 01/05. Next trough 01/07 1600. Patient's labs for today are: BUN: 17 Serum creatinine: 0.93 mg/dL 01/06/20 0356 Estimated creatinine clearance: 45.2 mL/min WBC: 15.7 Patient's Scr trend: Select one: Appears stable Labs, notes, medications and microbiology results have been reviewed. Pharmacy will continue to monitor daily. Thank you, Anabel Palmer RPh [facility] Pharmacy department * Mathew Mccullough MD - 01/06/2020 6:34 AM CDT [...] last 2 completed shifts: In: 2643 [P.O.:200; I.V.:2443] Out: - No intake/output data recorded. Physical Exam: Eyes: EOMI, SB, sclare non icteric Neck: supple, no nuchal ridigity, no gross carotid bruits appreciated Pharynx: No gross oral lesion, tongue midline, mucosa moist Lungs CTA Heart: [id number] Abd: +BS, Non Tender, Non distended, No [...] meals Emile Escudero MD 3 Units at 01/05/201711 ??? lisinopriL (PRINIVIL,ZESTRIL) tablet 10 mg 10 [...] Will go for MRI and TEO with gina, podiatry consulted and ID 2. DM II: [...] of right foot, with fat layer exposed ([facility]/HCC) Essential hypertension Mathew Mccullough MD 01/06/2020 6:34 AM * Yordy Escalona [facility] - 01/06/2020 6:11 AM CDT Electrolyte monitoring performed by pharmacy on labs from 01/06/2020 03:56, Na+=135 K+=4.4 Mg+=2.0 Phos=2.3 Potassium phosphate 12 mmol ivpb run X 1 dose per pharmacy electrolyte replacement protocol for phosphorous +=2.3 on 01/06/2020 (Potassium = 4.4) replacement ordered. Pharmacy will continue to follow daily. Thank you, Yordy Escalona [facility] Pharmacy department * Daisy Green MSW - 01/05/2020 2:54 PM CDT 01/05/20 2308 Information Information Obtained From Patient Referral Data Referral Source Physician Referral Reason Discharge Planning Prior to Admission Primary Caregiver Self Support System Children Support system contact info (name, phone, availablity) [id number] Home Care Services No Durable Medical Equipment [...] help and plans to return home at [place]. If this is the last note consider [...] tongue midline, mucosa moist Lungs CTA Heart: [id number] Abd: +BS, Non Tender, Non distended, No [...] 10 mg 10 mg oral Daily PRN Mathewrobe Mccullough MD ??? ciprofloxacin (CIPRO) 400 mg/200 mL in dextrose 5% (premix) 400 mg 400 mg intravenous Q12H SOL Emile Escudero MD 200 mL/hr at 01/05/2033 400 mg at 01/05/20832 ??? dextrose gel in packet 15 g [...] Daily-2100 Emile Escudero MD 40 mg at 01/04/202053 ??? gabapentin (NEURONTIN) capsule 400 mg 400 mg oral TID Emile Escudero MD 400 mg at 01/05/20827 ??? glucagon injection 1 mg 1 mg [...] Continuous Emile Escudero MD 125 mL/hr at 01/05/2033 125 mL/hr at 01/05/20832 ??? lisinopriL (PRINIVIL,ZESTRIL) tablet 10 mg 10 [...] SOL Emile Escudero MD 200 mL/hr at 01/05/20 0549 500 mg at 01/05/20 0549 ??? mineral oil (FLEET MINERAL OIL) enema 1 enema 1 enema rectal Daily PRN Mathew Mccullough MD ??? ondansetron ODT (ZOFRAN-ODT) disintegrating tablet 4 mg 4 mg oral Q6H PRN Emile Escudero MD Or ??? ondansetron (ZOFRAN) injection 4 mg 4 mg intravenous Q6H PRN Emile Escudero MD 4 mg at 01/05/20 0827 ??? oxyCODONE (ROXICODONE) tablet 5 mg 5 mg oral Q4H PRN Emile Escudero MD 5 mg at 01/05/20 0827 ??? potassium phosphates 11 mmol in sodium [...] Related to: Wounds Evidenced by: Physicalfinding Interventions: [place] diet preferences within the limits of nutrition [...] : 01/10/[address],LDN * Yordy Escalona, [facility] - 01/05/2020 6:12 AM CDT Electrolyte monitoring performed by pharmacy on labs from 01/05/2020 00;00, Na+=132 K+=3.9 Mg+=1.9 Phos=2.5 Potassium phosphate 11 mmol ivpb run X 1 dose per pharmacy electrolyte replacement protocol for phosphorous +=2.5 on 01/05/2020 (Potassium = 3.9) replacement ordered. Pharmacy will continue to follow daily. Thank you, Yordy Escalona, [facility] Pharmacy department * Alvarado Palomo, [facility] - 01/04/2020 8:02 PM CDT An order [...] other day. Thank you, Alvarado Palomo RPh [facility] Pharmacy department * Alvarado Palomo RP - 01/04/2020 6:41 PM CDT Vancomycin 750mg [...] previous MRI. I reviewed ABIs. I recommended [id number] digit amputation with wound debridement and possible bone biopsy right foot. We will work on scheduling this for tomorrow. Pre op orders placed. Anat Pelayo DPM 01/05/2020 * Emile Escudero MD - 01/04/2020 7:32 PM CDT [facility] Adult Hospitalist Service History and Physical Patient Name: Sixto Chakraborty Patient : 1950 Age/Sex: 69 y.o. female Room/Bed: [place] [address]/[place] [address] Admission Date/Time: 01/04/2020 5:43 PM Date: 01/04/2020 Time: 7:32 PM Primary Care Physician: Cherelle Corcoran MD PCP Office Location: [address] [place] [address] PCP SUBJECTIVE: Patient is a 69 y.o. [...] ) 57.1 kg (125 lb 12.8 oz) 01/04/202044 132/61 -- -- 84 -- -- -- [...] tongue midline, mucosa moist Lungs CTA Heart: [id number] Abd: +BS, Non Tender, Non distended, No [...] Name: SIXTO CHAKRABORTY Ordering Dr: Guy Walsh MD D.O.B: 1950 Exam Date: 12/26/192044 Age: 69 Sex: Female MR#: [id number] Loc: RADIOLOGY REPORT Order #[id number] Magnetic Resonance Imaging MRI Foot Right W/WO Contrast Signed EXAM DESCRIPTION: MRI Foot Right W/WO Contrast REASON FOR STUDY: Wounds to dorsal/plantar surfaces between all toes. Wounds began in July shortly after getting nails trimmed. TECHNIQUE: Multiplanar, multisequence MRI of the right foot was performed before and after contrast. CONTRASTTYPE/DOSE: 11 cc Dotarem injected through the left [...] hallux sesamoid. Soft Tissues: Diffuse nonspecific soft tissueedema centered over dorsum of the foot. Diffuse [...] signed by Pily BROWNE T: Report ID: [id number] Reading Location: [id number] REPORT ELECTRONICALLY SIGNED IN OTHER VENDOR SYSTEM [...] Emile Escudero MD Internal Medicine - Hospitalist [facility] - Adult Hospitalist Service CC: Cherelle [...] previous MRI. I reviewed ABIs. I recommended [id number] digit amputation with wound debridement and possible [...] file Gets together: Not on file Attends roman catholic service: Not on file Active member of [...] Emile Escudero MD, 5 mg at 01/05/20 0828 ??? bisacodyl EC (DULCOLAX EC) tablet 10 mg, 10 mg, oral, Daily PRN, Mathew Mccullough MD ??? ciprofloxacin (CIPRO) 400 mg/200 mL in dextrose 5% (premix) 400 mg, 400 mg, intravenous, Q12H SOL, Emile Escudero MD, Last Rate: 200 mL/hr at 01/05/20832, 400 mg at 01/05/2033 ??? dextrose gel in packet 15 g, 15 g, oral, Q15 Min PRN OR dextrose (D10W) 10% bolus 250 mL, 250 mL, intravenous, Q15 Min PRN, Emile Escudero MD ??? docusate sodium (COLACE) capsule 100 mg, 100 mg, oral, BID PRN, Emile Escudero MD ??? enoxaparin (LOVENOX) syringe 40 mg, 40 mg, subcutaneous, Daily-2099, Emile Escudero MD, 40 mgat 01/04/202053 ??? gabapentin (NEURONTIN) capsule 400 mg, 400 mg, oral, TID, Emile Escudero MD, 400 mg at 01/05/20 0828 ??? glucagon injection 1 mg, 1 mg, intramuscular, Q30 Min PRN, Emile Escudero MD ??? hydrALAZINE (APRESOLINE) injection 10 mg, 10 mg, intravenous, Q4H PRN, Emile Escudero MD ??? HYDROcodone-acetaminophen (NORCO) 5-325 [...] meals, Emile Escudero MD, 3 Units at 01/05/20 0832 ??? Lactated Ringer's (LR) infusion, 125 mL/hr, intravenous, Continuous, Emile Escudero MD, Last Rate: 125 mL/hr at 01/05/20 0833, 125 mL/hr at 01/05/2033 ??? lisinopriL (PRINIVIL,ZESTRIL) tablet 10 mg, 10 mg, oral, Daily, Emile Escudero MD, 10 mg at 01/05/20 0828 ??? magnesium [...] mL IVPB, 11 mmol, intravenous, Once, Mathew Mcclulough MD, Last Rate: 42.3 mL/hr at 01/05/20 [...] Thanks for this consultation. 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 Temperature [...] record. Sincerely, Natacha Jay RN, CDS Clinical [place] [employer] [phone] * Plan of Care - Darlyn Hernandez [...] orders done. 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 Daughter prefers for pt to return home and have [facility] Home Health. Daughter and other family members can assist with infusion. Notified CN Marilynn of HH choice. * Plan of Care [...] a PICC line placed this afternoon for terminal make up operator IV antibiotics. Pt had complaints of pain [...] record. Sincerely, Natacha Jay RN, CDS Clinical [place] [employer] [phone] * Provider Query - Anat Pelayo DPM [...] record. Sincerely, Natacha Jay RN, CDS Clinical [place] [employer] [phone] * Plan of Care - Lakia Crabtree [...] Vitals stable. Up with 1 assist to [facility] [place] difficulty. * Plan of Care - [...] at bedside. No falls or injuries. * Plan of Care - Maliha Sidhu RN - 01/07/2020 4:08 [...] DPM - Primary Anesthesiologist: Nilson Marrero MD ADMISSIONS SPECIALIST: Nelly Jacobson CRNA Laboratory Director: Brittney Teresa RN Scrub: Taniya Medina RN Laboratory Director Second: Mi Newberry RN DATE OF SURGERY [...] htn, foot ulcer, schizophrenia - on adm 7/15 H/H 10.2/32.2 7/16 H/H 8.0/24.7, 01/05 H/H 8.1/25.3, no active [...] record. Sincerely, Natacha Jay RN, CDS Clinical [place] [phone] * Plan of Care - Maliha Sidhu [...] bone biopsy, right hallux, pathology bone from [id number] digit sent for both bone culture and [...] for postoperative monitoring. Job ID/VF Job ID: [id number] * Plan of Care - Claudia Nguyen [...] removed, I educated on why and possible termite exterminator treatment plans and complications if she does not have this done. She stated I will have to think about it. Pt has LR infusing at 125 ml/hr. Pt had a [employer] rider today. Wounds cleansed and redressed. 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 Hospital Encounter [facility] [address] [place] [address] Jaya Grier MD [facility] [address] [facility] [address] [place] [address] 07/13/2024 9:00 AM FIELD ARTILLERY TARGETING TECHNICIAN - 07/13/2024 9:30 AM FIELD ARTILLERY TARGETING TECHNICIAN Surgery [facility] [address] [place] [address] Jaya Grier MD [facility] [address] [facility] [address] [place] [address] ESOPHAGOGASTRODUODENOSCOPY Scheduled Procedures Name Priority Associated Diagnoses Date/Ti nv ESOPHAGOGASTRODUODENOSCOPY Anemia, unspecified type Gastritis without bleeding, unspecified chronicity, unspecified gastritis type 07/13/2024 9:00 AM FIELD ARTILLERY TARGETING TECHNICIAN COLONOSCOPY Iron deficiency anemia due to [...] Routine 01/06/2020 9: 11 AM CDT Osteomyelitis (CMS/HCC) POCT GLUCOSE DEVICE Routine 01/06/2020 8 :06 [...] AM CDT POCT GLUCOSE DEVICE Routine 01/05/2020 9:43 PM CDT POCT GLUCOSE DEVICE Routine 01/05/2020 [...] 235(H) 71 - 98 mg/dL [facility] ([place]) Blood specimen (specimen) 01/11/2020 5:28 PM CDT 01/11/2020 5:28 PM CDT us Zahra Corona MD LAB POCT ORDERABLES - DE VICE Final Result N[facility]SA [facility] ([place]) 1 [facility] Department [place] [address] * (ABNORMAL) Vancomycin, trough (01/11/2020 4:01 PM CDT) Vancomycin trough 20.6(H) 15.0 - 20.0 mcg/mL [facility] ([place]) Comment: Intepretive Data Therapeutic range: ??15 - 20 mcg/ml Current interpretive data was last revised on 2014 Blood specimen (specimen) 01/11/2020 4:01 PM CDT 01/11/2020 4:06 PM CDT us Mathew Mccullough MD LAB BLOOD ORDERABL ES Final Result [facility] ([place]) 1 [facility] Department [place] [address] * US Vein Duplex Lower Extremity Right [...] by: Larry Lowe M.D. Zahra Corona MD IMG US PROCEDURES Final Result * (ABNORMAL) POCT glucose (01/11/2020 11:49 AM CDT) Glucose, POC 241(H) 71 - 98 mg/dL [facility] ([place]) Blood specimen (specimen) 01/11/2020 11:49 AM CDT 01/11/2020 11:49 AM CDT Zahra Corona MD LAB POCT ORDERABLES - DE VICE Final Result Performing Organization Address City/[facility]/ZIP Co de Phone Number NILSA [facility] ([place]) 1 [facility] [place] [address] * (ABNORMAL) POCT glucose (01/11/2020 7:52 AM CDT) Glucose, POC 242(H) 71 - 98 mg/dL [facility] ([place]) Blood specimen (specimen) 01/11/2020 7:52 AM CDT 01/11/2020 7:52 AM CDT Zahra Corona MD LAB POCT ORDERABLES - DE VICE Final Result [facility] ([place]) 1 [facility] [place] [address] * (ABNORMAL) Ferritin (01/11/2020 5:17 AM CDT) Ferritin 403(H) 15 - 150 ng/mL [facility] ([place]) Blood specimen (specimen) 01/11/2020 5:17 AM CDT 01/11/2020 8:58 AM CDT Zahra Corona MD LAB BLOOD ORDERABLES Fin al Result Performing Organization Address [facility]/ZIP Co de Phone Number N[facility]SA [facility] ([place]) 1 [facility] [place] [address] * (ABNORMAL) Iron profile w/ IBC (01/11/2020 5:17 AM CDT) Iron 20(L) 35 - 145 mcg/dL [facility] ([place]) TIBC 144(L) 250 - 400 mcg/dL [facility] ([place]) Transferrin saturation 14(L) 20 - 50 % [facility] ([place]) Blood specimen (specimen) 01/11/2020 5:17 AM CDT 01/11/2020 8:58 AM CDT Zahra Corona MD LAB BLOOD ORDERABLES Fin al Result Performing Organization Address [facility] Co de Phone Number N[facility]SA [facility] ([place]) 1 [facility] [employer] [place] [address] * eGFR (01/11/2020 5:17 AM CDT) eGFR 65 mL/min/1.7 3 m2 [facility] ([place]) Comment: Interpretive Data Reference Interval Normal ?>/= 90 mL/min/1.73m2 Mildly decreased* ? 60 - 89 mL/min/1.73m2 Mildly to moderately decreased ?45 - 59 mL/min/1.73m2 Moderately to severely decreased ??30 - 44 mL/min/1.73m2 Severely decreased ?15 - 29 mL/min/1.73m2 Kidney Failure ?< 15 ??mL/min/1.73m2 *Relative to young adult level If -Austrian multiply value by 1.16. Estimated glomerular filtration [...] ES Final Result [facility] ([place]) 1 [facility] Department [place] [address] * (ABNORMAL) Differential, auto (01/11/2020 5:17 AM [...] ORDERABL ES Final Result Performing Organization Address City/[facility]/ZIP Co de Phone Number NILSA [facility] ([place]) 1 [facility] [employer] [place], [place] [id number] * (ABNORMAL) CRP (acute phase) (01/11/2020 5:17 AM CDT) CRP 112.3(H) <=10.0 mg/L N[facility]SA [facility]IG[facility] ([place]) Blood specimen (specimen) 01/11/2020 5:17 AM CDT 01/11/2020 5:24 AM CDT Mathew Mccullough MD LAB BLOOD ORDERABL ES Final Result NILSA [facility] ([place]) 1 [facility] Department [place] [address] * (ABNORMAL) Comprehensive metabolic panel (01/11/2020 5:17 [...] - 1.10 mg/dL [facility] ([place]) Glucose 247(H) 70 - 199 mg/dL [facility] ([place]) [...] - 45 Units/L [facility] ([place]) AST 22 10 - 45 Units/L [facility] ([place]) Blood specimen (specimen) 01/11/2020 5:17 AM CDT 01/11/2020 5:24 AM CDT Mathew Mccullough MD LAB BLOOD ORDERABL ES Final Result [facility] ([place]) 1 [facility] [place] [address] * (ABNORMAL) CBC with auto differential (01/11/2020 5:17 AM CDT) WBC 13.8(H) 3.8 - 9.9 K/cumm [facility] ([place]) Hgb 7.5(L) 11.9 - 15.5 g/dL [facility] ([place]) Hct 23.6(L) 35.6 - 45.5 % [facility] ([place]) Plt 425(H) 150 - 400 K/cumm [facility] ([place]) MPV 9.4 9.1 - 12.3 fL [facility] ([place]) RBC 2.61(L) 3.90 - 5.20 M/cumm [facility] ([place]) MCV 90.4 81.3 - 96.4 fL [facility] ([place]) MCH 28.7 27.1 - 33.3 pg [facility] ([place]) MCHC 31.8(L) 32.3 - 35.7 g/dL [facility] ([place]) RDW CV 14.7 11.1 - 14.9 % [facility] ([place]) RDW SD 48.1 35.7 - 48.1 fL [facility] ([place]) NRBC abs 0.06(H) 0.00 - 0.01 K/cumm [facility] ([place]) Blood specimen (specimen) 01/11/2020 5:17 AM CDT 01/11/2020 5:24 AM CDT Mathew Mccullough MD LAB BLOOD ORDERABL ES Final Result [facility] ([place]) 1 [facility] Department [place] [address] * Magnesium (01/11/2020 5:17 AM CDT) Pathologist [facility] Magnesium 2.2 1.4 - 2.5 mg/dL [facility] ([place]) Blood specimen (specimen) 01/11/2020 5:17 AM CDT 01/11/2020 5:24 AM CDT us Emile Escudero MD LAB BLOOD ORDERABLES Final Re sult N[facility]SA [facility] ([place]) 1 [facility] of [employer] [place] [address] * Phosphorus (01/11/2020 5:17 AM CDT) Phosphorus, pl 3.3 2.3 - 4.5 mg/dL [facility] Blood specimen (specimen) 01/11/2020 5:17 AM CDT 01/11/2020 5:24 AM CDT us Emile Escudero MD LAB BLOOD ORDERABLES Final Re sult N[facility]SA [facility] ([place]) 1 [facility] [employer] [place] [address] * (ABNORMAL) POCT glucose (01/11/2020 2:23 AM CDT) Glucose, POC 246(H) 71 - 98 mg/dL [facility] ([place]) Blood specimen (specimen) 01/11/2020 2:23 AM CDT 01/11/2020 2:23 AM CDT us Zahra Corona MD LAB POCT ORDERABLES - DE VICE Final Result N[facility]SA L[facility] ([place]) 1 [facility] [employer] [place] [address] * (ABNORMAL) POCT glucose (01/10/2020 9:12 PM CDT) Glucose, POC 276(H) 71 - 98 mg/dL [facility]) Blood specimen (specimen) 01/10/2020 9:12 PM CDT 01/10/2020 9:12 PM CDT Zahra Corona MD LAB POCT ORDERABLES - DE VICE Final Result Performing Organization Address [facility]/ZIP Co de Phone Number [facility] ([place]) 1 [facility] [employer] [place] [address] * (ABNORMAL) POCT glucose (01/10/2020 11:53 AM CDT) Glucose, POC 174(H) 71 - 98 mg/dL NILSA [facility] ([place]) Blood specimen (specimen) 01/10/2020 11:53 AM CDT 01/10/2020 11:53 AM CDT us Zahra Corona MD LAB POCT ORDERABLES - DE VICE Final Result Performing Organization Address [facility]/ZIP Co de Phone Number [facility] ([place]) 1 [facility] [employer] [place] [address] * POCT glucose (01/10/2020 7:52 AM CDT) Glucose, POC 81 71 - 98 mg/dL N[facility] ([place]) Blood specimen (specimen) 01/10/2020 7:52 AM CDT 01/10/2020 7:52 AM CDT Zahra Corona MD LAB POCT ORDERABLES - DE VICE Final Result Performing Organization Address [facility]/ZIP Co de Phone Number [facility] ([place]) 1 [facility] [employer] [place] [address] * (ABNORMAL) CRP (acute phase) (01/10/2020 3:49 AM CDT) CRP 119.1(H) <=10.0 mg/L N[facility]SA [facility] ([place]) Blood specimen (specimen) 01/10/2020 3:49 AM CDT 01/10/2020 3:51 AM CDT Mathew Mccullough MD LAB BLOOD ORDERABL ES Final Result Performing Organization Address [facility]/ZIP Co de Phone Number N[facility]SA [facility] ([place]) 1 [facility] of [employer] [place] [address] * Magnesium (01/10/2020 3:49 AM CDT) Magnesium 2.2 1.4 - 2.5 mg/dL [facility] ([place]) Blood specimen (specimen) 01/10/2020 3:49 AM CDT 01/10/2020 3:51 AM CDT us Emile Escudero MD LAB BLOOD ORDERABLES Final Re sult Performing Organization Address [facility] Co de Phone Number NILSA [facility] ([place]) 1 [facility] of [employer] [place] [address] * Phosphorus (01/10/2020 3:49 AM CDT) Pathologist [facility] Phosphorus, pl 3.4 2.3 - 4.5 mg/dL N[facility]SA [facility] ([place]) Blood specimen (specimen) 01/10/2020 3:49 AM CDT 01/10/2020 3:51 AM CDT Emile Escudero MD LAB BLOOD ORDERABLES Final Re sult Performing Organization Address [facility] Co de Phone Number N[facility]SA L[facility] ([place]) 1 [facility] of [employer] [place] [address] * (ABNORMAL) Vancomycin, trough (01/10/2020 3:49 AM CDT) Vancomycin trough 13.4(L) 15.0 - 20.0 mcg/mL [facility] ([place]) Comment: Intepretive Data Therapeutic range: ??15 - 20 mcg/ml Current interpretive data was last revised on 2014 Blood specimen (specimen) 01/10/2020 3:49 AM CDT 01/10/2020 3:51 AM CDT Mathew Mccullough MD LAB BLOOD ORDERABL ES Final Result Performing Organization Address City/[facility]/ZIP Co de Phone Number [facility] ([place]) 1 [facility] [employer] [place] [address] * (ABNORMAL) POCT glucose (01/10/2020 2:13 AM CDT) Glucose, POC 122(H) 71 - 98 mg/dL [facility] ([place]) Blood specimen (specimen) 01/10/2020 2:13 AM CDT 01/10/2020 2:13 AM CDT Mathew Mccullough MD LAB POCT ORDERABLE S - DEVICE Final Result Performing Organization Address [facility] Co de Phone Number [facility] ([place]) 1 [facility] [employer] [place] [address] * (ABNORMAL) POCT glucose (01/09/2020 8:23 PM CDT) Glucose, POC 251(H) 71 - 98 mg/dL [facility] ([place]) Blood specimen (specimen) 01/09/2020 8:23 PM CDT 01/09/2020 8:23 PM CDT Mathew Mccullough MD LAB POCT ORDERABLE S - DEVICE Final Result Performing Organization Address City/[facility]/ZIP Co de Phone Number [facility] ([place]) 1 [facility] [employer] [place] [address] * (ABNORMAL) POCT glucose (01/09/2020 4:50 PM CDT) Glucose, POC 170(H) 71 - 98 mg/dL [facility] ([place]) Blood specimen (specimen) 01/09/2020 4:50 PM CDT 01/09/2020 4:50 PM CDT Mathew Mccullough MD LAB POCT ORDERABLE S - DEVICE Final Result Performing Organization Address City/[facility]/ZIP Co de Phone Number [facility] ([place]) 1 [facility] [employer] [place] [address] * (ABNORMAL) Protime-INR (01/09/2020 3:29 PM CDT) PT 15.1(H) 9.5 - 13.0 sec [facility] ([place]) INR 1.3(H) 0.9 - 1.2 [facility] ([place]) Comment: Interpretive data Oral anticoagulant therapeutic ranges: Venous thromboembolism prophylaxis or treatment: 2.0-3.0 CARDIOLOGY Standard range: 2.0-3.0 High-intensity range: 2.5-3.5 Refer to indication-specific guidelines for appropriate target ranges for prosthetic heart valve replacement. Current interpretive data was last revised on 2019. Blood specimen (specimen) 01/09/2020 3:29 PM CDT 01/09/2020 3:37 PM CDT us Erna Anthony MD LAB BLOOD ORDERABLES Final Result Performing Organization Address [facility] Co de Phone Number [facility] ([place]) 1 [facility] [employer] [place] [address] * aPTT (01/09/2020 3:29 PM CDT) aPTT 33 25 - 37 sec [facility] ([place]) Comment: Interpretive data Heparin therapeutic range: 60-94 seconds Range based on correlation with therapeutic heparin activity range of 0.3-0.7 units/ml. Current interpretive data was last revised on 2019. Blood specimen (specimen) 01/09/2020 3:29 PM CDT 01/09/2020 3:37 PM CDT Erna Anthony MD LAB BLOOD ORDERABLES Final Result N[facility]SA L[facility] ([place]) [address] [place] [address] Department of Laboratories [place], [place] [id number] * TRANSTHORACIC ECHO (TTE) COMPLETE W DOPPLER/CF WO CONTRAST (01/09/2020 1:42 PM CDT) Anatomical Region Laterality Modality Ultrasound 01/09/2020 1:05 PM CDT Narrative 01/09/2020 3:42 PM CDT [address] [address] Echocardiogram Report Patient Name: SIXTO CHAKRABORTY : 1950 Study Date: 01/09/2020 13:05:18 Gender: F Tech: AA Location: [id number] Ref.Provider: MATHEW MCCULLOUGH Height(Cm): BSA: ??Weight(Kg): Quality: [...] Procedure Note Adryan Richmond, DO - 01/09/[address] [place] [address] Echocardiogram Report Patient Name: SIXTO CHAKRABORTY : 1950 Study Date: 01/09/2020 13:05:18 Gender: F Tech: AA Location: [place] [address] Ref.Provider: MATHEW MCCULLOUGH Height(Cm): BSA: Weight(Kg): Quality: [...] DEVICE Final Result N[facility] ([place]) 1 [facility] [place] [address] * (ABNORMAL) POCT glucose (01/09/2020 7:58 AM CDT) Glucose, POC 131(H) 71 - 98 mg/dL [facility] ([place]) Blood specimen (specimen) 01/09/2020 7:58 AM CDT 01/09/2020 7:58 AM CDT Mathew Mccullough MD LAB POCT ORDERABLE S - DEVICE Final Result N[facility] ([place]) 1 [facility] [place] [address] * eGFR (01/09/2020 4:15 AM CDT) eGFR 72 mL/min/1.7 3 m2 [facility] ([place]) Comment: Interpretive Data Reference Interval Normal ?>/= 90 mL/min/1.73m2 Mildly decreased* ? 60 - 89 mL/min/1.73m2 Mildly to moderately decreased ?45 - 59 mL/min/1.73m2 Moderately to severely decreased ??30 - 44 mL/min/1.73m2 Severely decreased ?15 - 29 mL/min/1.73m2 Kidney Failure ?< 15 ??mL/min/1.73m2 *Relative to young adult level If -Austrian multiply value by 1.16. Estimated glomerular filtration [...] Re sult [facility] ([place]) 1 [facility] Department [place] [address] * (ABNORMAL) Differential, auto (01/09/2020 4:15 AM [...] on 2017. Monocyte pct 7.1 % [facility] ([place]) Comment: Interpretive Data Percent cell count reference [...] LAB BLOOD ORDERABLES Final Re sult [facility] ([place]) 1 [facility] of [employer] [place] [address] * (ABNORMAL) CRP (acute phase) (01/09/2020 4:15 AM CDT) CRP 172.5(H) <=10.0 mg/L N[facility]SA [facility] ([place]) Blood specimen (specimen) 01/09/2020 4:15 AM CDT 01/09/2020 4:47 AM CDT Mathew Mccullough MD LAB BLOOD ORDERABL ES Final Result [facility] ([place]) 1 [facility] of [employer] [place] [address] * Magnesium (01/09/2020 4:15 AM CDT) Magnesium 2.1 1.4 - 2.5 mg/dL NILSA [facility] ([place]) Blood specimen (specimen) 01/09/2020 4:15 AM CDT 01/09/2020 4:47 AM CDT Emile Escudero MD LAB BLOOD ORDERABLES Final Re sult NILSA WANG[place]) 1 [facility] [place] [address] * Phosphorus (01/09/2020 4:15 AM CDT) Phosphorus, pl 3.0 2.3 - 4.5 mg/dL [facility] ([place]) Blood specimen (specimen) 01/09/2020 4:15 AM CDT 01/09/2020 4:47 AM CDT us Emile Escudero MD LAB BLOOD ORDERABLES Final Re sult Performing Organization Address City/[facility] Co de Phone Number N[facility]SA L[facility] ([place]) 1 [facility] [place] [address] * (ABNORMAL) Comprehensive metabolic panel (01/09/2020 4:15 AM CDT) Sodium 139 135 - 145 mmol/L [facility] ([place]) Potassium, pl 4.1 3.3 - 4.9 mmol/L [facility] ([place]) Chloride 105 97 - 110 mmol/L [facility] ([place]) CO2 26 22 - 32 mmol/L [facility] ([place]) Anion gap 8 2 - 15 mmol/L [facility] [facility] ([place] BUN 11 8 - 25 mg/dL [facility] ([place]) Creatinine 0.83 0.60 - 1.10 mg/dL [facility] ([place]) Glucose 162 70 - 199 mg/dL [facility] [...] MD LAB BLOOD ORDERABLES Final Re sult [facility] 1 [facility] Department of Laboratories [place] [id number] * (ABNORMAL) CBC with auto differential (01/09/2020 [...] ([place]) MCHC 32.1(L) 32.3 - 35.7 g/dL NILSA LOWE ([place]) RDW CV 14.2 11.1 - 14.9 % NILSA LOWE ([place]) RDW SD 46.2 35.7 - 48.1 fL NILSA LOWE ([place]) NRBC abs 0.14(H) 0.00 - 0.01 K/cumm NILSA LOW[facility] ([place]) Blood specimen (specimen) 01/09/2020 4:15 AM CDT 01/09/2020 4:47 AM CDT Emile Escudero MD LAB BLOOD ORDERABLES Final Re sult Performing Organization Address City/[facility]/ZIP Co de Phone Number NILSA LOWE ([place]) 1 [facility] of [employer] [place] [address] * (ABNORMAL) POCT glucose (01/09/2020 2:55 AM CDT) Glucose, POC 199(H) 71 - 98 mg/dL NILSA LOWE ([place]) Blood specimen (specimen) 01/09/2020 2:55 AM CDT 01/09/2020 2:55 AM CDT us Mathew Mccullough MD LAB POCT ORDERABLE S - DEVICE Final Result Performing Organization Address [facility] Co de Phone Number NILSA LOWE ([place]) 1 [facility] [employer] known [employer]) [place] [address] * (ABNORMAL) POCT glucose (01/08/2020 8:32 PM CDT) Glucose, POC 262(H) 71 - 98 mg/dL NILSA LOWE ([place]) Blood specimen (specimen) 01/08/2020 8:32 PM CDT 01/08/2020 8:32 PM CDT Mathew Mccullough MD LAB POCT ORDERABLE S - DEVICE Final Result Performing Organization Address City/[facility]/ZIP Co de Phone Number NILSA LOWE ([place]) 1 [facility] [employer]formerly known [employer]) [place] [address] * (ABNORMAL) POCT glucose (01/08/2020 4:48 PM CDT) Glucose, POC 219(H) 71 - 98 mg/dL NILSA LOWE ([place]) Blood specimen (specimen) 01/08/2020 4:48 PM CDT 01/08/2020 4:48 PM CDT Mathew Mccullough MD LAB POCT ORDERABLE S - DEVICE Final Result NILSA LOWE ([place]) 1 [facility] [employer]formerly known [employer]) [place] [address] * (ABNORMAL) Vancomycin, trough (01/08/2020 3:50 PM CDT) Pathologist [facility] Vancomycin trough 6.5(L) 15.0 - 20.0 mcg/mL NILSA LOWE ([place]) Comment: Intepretive Data Therapeutic range: ??15 - 20 mcg/ml Current interpretive data was last revised on 2014 Blood specimen (specimen) 01/08/2020 3:50 PM CDT 01/08/2020 4:01 PM CDT Mathew Mccullough MD LAB BLOOD ORDERABL ES Final Result NILSA LOWE ([place]) 1 [facility] [employer]formerly known [employer]) [place] [address] * (ABNORMAL) POCT glucose (01/08/2020 11:53 AM CDT) Glucose, POC 178(H) 71 - 98 mg/dL NILSA LOWE ([place]) Blood specimen (specimen) 01/08/2020 11:53 AM CDT 01/08/2020 11:53 AM CDT Mathew Mccullough MD LAB POCT ORDERABLE S - DEVICE Final Result NILSA LOWE ([place]) 1 [facility] [place] [address] * (ABNORMAL) POCT glucose (01/08/2020 8:00 AM CDT) Glucose, POC 172(H) 71 - 98 mg/dL NILSA [facility] ([place]) Blood specimen (specimen) 01/08/2020 8:00 AM CDT 01/08/2020 8:00 AM CDT Mathew Mccullough MD LAB POCT ORDERABLE S - DEVICE Final Result Performing Organization Address City/[facility]/ZIP Co de Phone Number NILSA LOWE ([place]) 1 [facility] of [employer] (formerly known as [employer]) [place] [address] * eGFR (01/08/2020 3:25 AM CDT) eGFR 59 mL/min/1.7 3 m2 NILSA [facility] ([place]) Comment: Interpretive Data Reference Interval Normal ?>/= 90 mL/min/1.73m2 Mildly decreased* ? 60 - 89 mL/min/1.73m2 Mildly to moderately decreased ?45 - 59 mL/min/1.73m2 Moderately to severely decreased ??30 - 44 mL/min/1.73m2 Severely decreased ?15 - 29 mL/min/1.73m2 Kidney Failure ?< 15 ??mL/min/1.73m2 *Relative to young adult level If -Austrian multiply value by 1.16. Estimated glomerular filtration [...] Final Re sult NILSA [facility] ([place]) 1 [facility] Department [place] [address] * (ABNORMAL) Differential, auto (01/08/2020 3:25 AM CDT) Neutrophil abs 11.7(H) 1.7 - 6.5 K/cumm [...] LAB BLOOD ORDERABLES Final Re sult NILSA [facility] ([place]) 1 [facility] [place] [address] * (ABNORMAL) CRP (acute phase) (01/08/2020 3:25 AM CDT) CRP 227.2(H) <=10.0 mg/L NILSA Crabtree ([place]) Blood specimen (specimen) 01/08/2020 3:25 AM CDT 01/08/2020 3:44 AM CDT Mathew Mccullough MD LAB BLOOD ORDERABL ES Final Result [facility] ([place] 1 [facility] [employer] (formerly known as [employer]) [place] [address] * Magnesium (01/08/2020 3:25 AM CDT) Magnesium 2.2 1.4 - 2.5 mg/dL NILSA [facility] ([place]) Blood specimen (specimen) 01/08/2020 3:25 AM CDT 01/08/2020 3:44 AM CDT Emile Escudero MD LAB BLOOD ORDERABLES Final Re sult NILSA WANGN) 1 [facility] of [employer] (formerly known as [employer]) [place] [address] * Phosphorus (01/08/2020 3:25 AM CDT) Phosphorus, pl 3.2 2.3 - 4.5 mg/dL [facility] ([place]) Blood specimen (specimen) 01/08/2020 3:25 AM CDT 01/08/2020 3:44 AM CDT Emile Escudero MD LAB BLOOD ORDERABLES Final Re sult Performing Organization Address [facility] Co de Phone Number NILSA LOWE ([place]) 1 [facility] of [employer] (formerly known as [employer]) [place] [address] * (ABNORMAL) Comprehensive metabolic panel (01/08/2020 3:25 AM CDT) Sodium 139 135 - 145 mmol/L [facility] ([place]) Potassium, pl 4.0 3.3 - 4.9 mmol/L [facility] ([place]) Chloride 105 97 - 110 mmol/L [facility] ([place]) CO2 27 22 - 32 mmol/L [facility] ([place] Anion gap 7 2 - 15 mmol/L [facility] ([place]) BUN 14 8 - 25 mg/dL [facility] ([place]) Creatinine 0.98 0.60 - 1.10 mg/dL [facility] Glucose 222(H) 70 - 199 mg/dL [facility] ([place]) Comment: Interpretive Data Fasting glucose [...] Final Re sult [facility] ([place]) 1 [facility] Department of Laboratories [place] [id number] * (ABNORMAL) CBC with auto differential (01/08/2020 [...] ([place]) MCHC 32.5 32.3 - 35.7 g/dL NILSA LOWE ([place]) RDW CV 13.9 11.1 - 14.9 % NILSA LOWE ([place]) RDW SD 45.8 35.7 - 48.1 fL NILSA LOWE ([place]) NRBC abs 0.07(H) 0.00 - 0.01 K/cumm NILSA L[facility] ([place]) Blood specimen (specimen) 01/08/2020 3:25 AM CDT 01/08/2020 3:44 AM CDT Emile Escudero MD LAB BLOOD ORDERABLES Final Re sult NILSA LOWE ([place]) 1 [facility] [employer] known [employer] [place] [address] * (ABNORMAL) POCT glucose (01/08/2020 2:22 AM CDT) Glucose, POC 261(H) 71 - 98 mg/dL NILSA LOWE ([place]) Blood specimen (specimen) 01/08/2020 2:22 AM CDT 01/08/2020 2:22 AM CDT Mathew Mccullough MD LAB POCT ORDERABLE S - DEVICE Final Result Performing Organization Address [facility] Co de Phone Number NILSA LOWE ([place]) 1 [facility] [employer] (formerly known as [employer]) [place] [address] * (ABNORMAL) POCT glucose (01/07/2020 8:48 PM CDT) Glucose, POC 320(H) 71 - 98 mg/dL NILSA LOWE ([place]) Blood specimen (specimen) 01/07/2020 8:48 PM CDT 01/07/2020 8:48 PM CDT Mathew Mccullough MD LAB POCT ORDERABLE S - DEVICE Final Result NILSA LOWE ([place]) 1 [facility] [employer]formerly known as [employer]) [place] [address] * (ABNORMAL) POCT glucose (01/07/2020 4:46 PM CDT) Glucose, POC 288(H) 71 - 98 mg/dL [facility] ([place]) Blood specimen (specimen) 01/07/2020 4:46 PM CDT 01/07/2020 4:46 PM CDT Mathew Mccullough MD LAB POCT ORDERABLE S - DEVICE Final Result NILSA LOWE ([place]) 1 [facility] [employer]formerly known as [employer]) [place] [address] * (ABNORMAL) POCT glucose (01/07/2020 11:55 AM CDT) Glucose, POC 274(H) 71 - 98 mg/dL [facility] ([place]) Blood specimen (specimen) 01/07/2020 11:55 AM CDT 01/07/2020 11:55 AM CDT Mathew Mccullough MD LAB POCT ORDERABLE S - DEVICE Final Result NILSA LOWE ([place]) 1 [facility] [employer]formerly known [employer]) [place] [address] * (ABNORMAL) POCT glucose (01/07/2020 11:22 AM CDT) Glucose, POC 344(H) 71 - 98 mg/dL [facility] ([place]) Blood specimen (specimen) 01/07/2020 11:22 AM CDT 01/07/2020 11:22 AM CDT Mathew Mccullough MD LAB POCT ORDERABLE S - DEVICE Final Result NILSA LOWE ([place]) 1 [facility] [employer] known [employer]) [place] [address] * (ABNORMAL) POCT glucose (01/07/2020 7:54 AM CDT) Glucose, POC 303(H) 71 - 98 mg/dL NILSA LOWE ([place]) Blood specimen (specimen) 01/07/2020 7:54 AM CDT 01/07/2020 7:54 AM CDT Mathew Mccullough MD LAB POCT ORDERABLE S - DEVICE Final Result NILSA [facility] ([place]) 1 [facility] Department [place] [address] * eGFR (01/07/2020 3:32 AM CDT) eGFR 65 mL/min/1.7 3 m2 NILSA LOWE ([place]) Comment: Interpretive Data Reference Interval Normal ?>/= 90 mL/min/1.73m2 Mildly decreased* ? 60 - 89 mL/min/1.73m2 Mildly to moderately decreased ?45 - 59 mL/min/1.73m2 Moderately to severely decreased ??30 - 44 mL/min/1.73m2 Severely decreased ?15 - 29 mL/min/1.73m2 Kidney Failure ?< 15 ??mL/min/1.73m2 *Relative to young adult level If -Austrian multiply value by 1.16. Estimated glomerular filtration [...] Final Re sult NILSA [facility] ([place]) 1 [facility] Department [place] [address] * (ABNORMAL) Differential, auto (01/07/2020 3:32 AM CDT) Neutrophil abs 13.0(H) 1.7 - 6.5 K/cumm [facility] ([place]) [...] AM CDT 01/07/2020 3:50 AM CDT Emile Escduero MD LAB BLOOD ORDERABLES Final Re sult [facility] ([place]) 1 [facility] [employer] of [employer] (formerly known as [employer]) [place] [address] * (ABNORMAL) CRP (acute phase) (01/07/2020 3:32 AM CDT) CRP 244.7(H) <=10.0 mg/L NILSA Crabtree ([place]) Blood specimen (specimen) 01/07/2020 3:32 AM CDT 01/07/2020 3:50 AM CDT Mathew Mccullough MD LAB BLOOD ORDERABL ES Final Result [facility]EN [facility] ([place]) 1 [facility] [employer] of [employer] (formerly known as [employer]) [place] [address] * Magnesium (01/07/2020 3:32 AM CDT) Magnesium 2.2 1.4 - 2.5 mg/dL NILSA LOWE ([place]) Blood specimen (specimen) 01/07/2020 3:32 AM CDT 01/07/2020 3:50 AM CDT Emile Escudero MD LAB BLOOD ORDERABLES Final Re sult NILSA LOWE ([place]) 1 [facility] Department [place] [address] * (ABNORMAL) Phosphorus (01/07/2020 3:32 AM CDT) Phosphorus, pl 1.8(L) 2.3 - 4.5 mg/dL [facility] ([place]) Blood specimen (specimen) 01/07/2020 3:32 AM CDT 01/07/2020 3:50 AM CDT Emile Escudero MD LAB BLOOD ORDERABLES Final Re sult Performing Organization Address [facility] Co de Phone Number NILSA LOWE ([place]) 1 [facility] Department of [employer] known [employer] [place] [address] * (ABNORMAL) Comprehensive metabolic panel (01/07/2020 3:32 AM CDT) Sodium 139 135 - 145 mmol/L [facility] ([place]) Potassium, pl 4.3 3.3 - 4.9 mmol/L [facility] ([place]) Chloride 107 97 - 110 mmol/L [facility] ([place]) CO2 25 22 - 32 mmol/L [facility] ([place]) Anion gap 7 2 - 15 mmol/L [facility] ([place]) BUN 15 8 - 25 mg/dL [facility] ([place]) Creatinine 0.90 0.60 - 1.10 mg/dL [facility] ([place]) Glucose 221(H) 70 - 199 mg/dL [facility] ([place]) Comment: Interpretive Data Fasting glucose [...] MD LAB BLOOD ORDERABLES Final Re sult [facility] 1 [facility] Department [place] [address] * (ABNORMAL) CBC with auto differential (01/07/2020 3:32 AM CDT) WBC 16.3(H) 3.8 - 9.9 K/cumm [facility] ([place]) Hgb 8.2(L) 11.9 - 15.5 g/dL [facility] ([place]) Hct 25.8(L) 35.6 - 45.5 % [facility] ([place]) Plt 406(H) 150 - 400 K/cumm [facility] [...] SD 46.9 35.7 - 48.1 fL NILSA LOWE ([place]) NRBC abs 0.04(H) 0.00 - 0.01 K/cumm NILSA LOWE ([place]) Blood specimen (specimen) 01/07/2020 3:32 AM CDT 01/07/2020 3:50 AM CDT Emile Escudero MD LAB BLOOD ORDERABLES Final Re sult Performing Organization Address City/[facility]/ZIP Co de Phone Number NILSA LOWE ([place]) 1 [facility] [employer] known [employer] [place] [address] * (ABNORMAL) POCT glucose (01/07/2020 2:25 AM CDT) Glucose, POC 224(H) 71 - 98 mg/dL NILSA LOWE ([place]) Blood specimen (specimen) 01/07/2020 2:25 AM CDT 01/07/2020 2:25 AM CDT Mathew Mccullough MD LAB POCT ORDERABLE S - DEVICE Final Result Performing Organization Address [facility] Co de Phone Number NILSA LOWE ([place]) 1 [facility] [employer]formerly known [employer]) [place] [address] * (ABNORMAL) POCT glucose (01/06/2020 9:22 PM CDT) Glucose, POC 229(H) 71 - 98 mg/dL NILSA LOWE ([place]) Blood specimen (specimen) 01/06/2020 9:22 PM CDT 01/06/2020 9:22 PM CDT Mathew Mccullough MD LAB POCT ORDERABLE S - DEVICE Final Result Performing Organization Address City/[facility] Co de Phone Number NILSA LOWE ([place]) 1 [facility] [place] [address] * Blood culture Blood Hand, right (01/06/2020 8:51 PM CDT) Report Final Report: No growth NILSA LOWE ([place]) Comment:Testing performed by : [facility], [address] [place]., [address] Blood specimen (specimen) (Hand, right) 01/06/2020 8:51 [...] organism identification may be performed using the Qioigene Gram-Positive Blood Culture Assay. This assay detects microbial DNA in positive blood culture broth via hybridization of target DNA to capture oligonucleotides on a microarray. This assay has been cleared by the [place] Food and Drug Administration and its performance characteristics have been verified by the [facility]. 5. ?For questions about this culture, contact the Microbiology Laboratory at [phone]. Interpretive data was last revised on 2019. us Mathew Mccullough MD LAB MICROBIOLOGY - GENERAL ORDERABLES Final Result NILSA CHRISSY ([place]) 1 [facility] Department [place] [address] * Blood culture Blood Antecubital, right (01/06/2020 8:51 PM CDT) Report Final Report: No growth NILSA LOWE ([place]) Comment:Testing performed by : [facility] [place], [address] [place]., [address] Blood specimen (specimen) (Antecubital, right) 01/06/2020 8:51 [...] organism identification may be performed using the Qioigene Gram-Positive Blood Culture Assay. This assay detects microbial DNA in positive blood culture broth via hybridization of target DNA to capture oligonucleotides on a microarray. This assay has been cleared by the [place] Food and Drug Administration and its performance characteristics have been verified by the [facility]. 5. ?For questions about this culture, contact the Microbiology Laboratory at [phone]. Interpretive data was last revised on 2019. Mathew Mccullough MD LAB MICROBIOLOGY - GENERAL ORDERABLES Final Result NILSA LOWE ([place]) 1 [facility] Department [place] [address] * (ABNORMAL) Vancomycin, trough (01/06/2020 4:45 PM CDT) Vancomycin trough 6.1(L) 15.0 - 20.0 mcg/mL NILSA LOWE ([place]) Comment: Intepretive Data Therapeutic range: ??15 - 20 mcg/ml Current interpretive data was last revised on 2014 Blood specimen (specimen) 01/06/2020 4:45 PM CDT 01/06/2020 5:00 PM CDT Mathew Mccullough MD LAB BLOOD ORDERABL ES Final Result Performing Organization Address City/[facility]/ZIP Co de Phone Number CARLOS ENRIQUEELLEN LOWE ([place]) 1 [facility] [employer]formerly known [employer]) [place] [address] * (ABNORMAL) POCT glucose (01/06/2020 4:41 PM CDT) Glucose, POC 177(H) 71 - 98 mg/dL NILSA LOWE ([place]) Blood specimen (specimen) 01/06/2020 4:41 PM CDT 01/06/2020 4:41 PM CDT Mathew Mccullough MD LAB POCT ORDERABLE S - DEVICE Final Result Performing Organization Address [facility] Co de Phone Number CARLOS ENRIQUEELLEN CHRISSY ([place]) 1 [facility] [employer]formerly known [employer]) [place] [address] * (ABNORMAL) POCT glucose (01/06/2020 2:06 PM CDT) Glucose, POC 205(H) 71 - 98 mg/dL NILSA LOWE ([place]) Blood specimen (specimen) 01/06/2020 2:06 PM CDT 01/06/2020 2:06 PM CDT Mathew Mccullough MD LAB POCT ORDERABLE S - DEVICE Final Result NILSA LOWE ([place]) 1 [facility] [employer]formerly known [employer]) [place] [address] * (ABNORMAL) POCT glucose (01/06/2020 1:26 PM CDT) Glucose, POC 186(H) 71 - 98 mg/dL NILSA LOWE ([place]) Blood specimen (specimen) 01/06/2020 1:26 PM CDT 01/06/2020 1:26 PM CDT Mathew Mccullough MD LAB POCT ORDERABLE S - DEVICE Final Result NILSA LOWE ([place]) 1 [facility] Department [place] [address] * (ABNORMAL) Tissue aerobic and anaerobic culture and gram stain Bone Toe, fourth, right (01/06/2020 1:02 PM CDT) Pathologist [facility] Direct Specimen Exam Stain: No polymorphonuclear leukocytes seen. Few Gram Positive Cocci NILSA LOWE ([place]) Comment:Testing performed by : [facility], [address] [place]., [address] Report Final Report: Moderate Staphylococcus aureus Methicillin resistant (MRSA) by penicillin binding protein 2a (PBP2a) testing. (.) NILSA LOWE ([place]) Comment:Testing performed by : [facility], [address] [place] [address]., [address] Organism STAPHYLOCOCCUS AUREUS NILSA LOWE ([place]) Bone (Toe, fourth, right) 01/06/2020 1:02 PM CDT 01/06/2020 5:03 PM CDT Narrative NILSA LOWE ([place]) - 01/15/2020 1:54 PM CDT Testing performed by [facility] ([phone]) Specimens submitted from normally sterile body sites [...] aureus Ceftriaxone (CINTIA) INTERPRETATIO N Resistant Anat Pelayo DPM LAB MICROBIOLOGY - GENERAL ORDERABLES Final Result NILSA GORE) [address] [place] [address] Department [place] [address] * (ABNORMAL) Tissue aerobic and anaerobic culture and gram stain Biopsy Toe, great, right (01/06/20201:00 PM CDT) Direct Specimen Exam Stain: No polymorphonuclear leukocytes seen. No organisms seen. NILSA LOWE ([place]) Comment:Testing performed by : [facility], [address] [place] [address], [place]., [address] Report Final Report: Rare Staphylococcus aureus For susceptibility results, refer to accession number [id number] on the right toe bone culture from 01/06/2020 (.) NILSA LOWE ([place]) Comment:Testing performed by : [facility], [address] [place] [address], [place]., [address] Organism STAPHYLOCOCCUS AUREUS NILSA LOWE ([place]) Biopsy (Toe, great, right) 01/06/2020 1:00 PM CDT 01/06/2020 5:04 PM CDT Narrative NILSA LOWE ([place]) - 01/09/2020 2:26 PM CDT Right hallux Testing performed by [facility] ([phone]) Specimens submitted from normally sterile body sites [...] GENERAL ORDERABLES Final Result Performing Organization Address City/[facility]/ZIP Co de Phone Number NILSA LOWE ([place]) 1 [facility] [employer]formerly known [employer]) [place] [address] * (ABNORMAL) POCT glucose (01/06/2020 12:07 PM CDT) Glucose, POC 211(H) 71 - 98 mg/dL [facility] ([place]) Blood specimen (specimen) 01/06/2020 12:07 PM CDT 01/06/2020 12:07 PM CDT Mathew Mccullough MD LAB POCT ORDERABLE S - DEVICE Final Result Performing Organization Address [facility] Co de Phone Number NILSA LOWE ([place]) 1 [facility] [place] [address] * (ABNORMAL) POCT glucose (01/06/2020 11:38 AM CDT) Glucose, POC 245(H) 71 - 98 mg/dL [facility] ([place]) Blood specimen (specimen) 01/06/2020 11:38 AM CDT 01/06/2020 11:38 AM CDT Mathew Mccullough MD LAB POCT ORDERABLE S - DEVICE Final Result Performing Organization Address City/[facility] Co de Phone Number NILSA LOWE ([place]) 1 [facility] [employer]formerly known [employer]) [place] [address] * Surgical pathology (01/06/2020 9:11 AM CDT) Tissue (Bone Fragment(s),) 01/06/2020 12:55 PM CDT Narrative PATHOLOGY [facility] ([place]) - 01/10/2020 1:38 PM CDT EPIC results best viewed via link to PDF [facility] Department of Pathology [address] [place] [id number] Final Report Patient Name: ??SIXTO CHAKRABORTY Address: ??[address] [place] [address], ??[place], [place] [address] Gender: ??F : ??1950 (Age: 69) Service: ??Medical Location: ??[facility] Hospital #: ??[id number] Patient Type: ??[facility] IP Accession # ?[id number] Taken: ??01/06/2020 Received: ??01/09/2020 Accessioned: ??01/09/2020 Reported: ??01/10/2020 Physician(s):Dr Anat Pelayo, DPM Cherelle Corcoran M.D. 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 ??Mikki Weiner M.D./Ruddy Rider REPORT IMAGES AND SCANNED DOCUMENTS, IF INCLUDED, ONLY VIEWABLE IN PDF VERSION OF REPORT The performance characteristics of some immunohistochemical stains, fluorescence in-situ hybridization tests and immunophenotyping by flow cytometry cited in this report (if any) were determined by the Surgical Pathology Department at [facility] as part of an ongoing supervisor vendor quality program and in compliance with federally mandated regulations drawn from the Clinical Laboratory Improvement Act of 1988 (CLIA '88). ??Some of these tests rely on the [...] characteristics determined by the Surgical Pathology Department [facility]. ??It has not been cleared or approved by the U. S. Food and Drug Administration. Anat Pelayo DPM LAB PATHOLOGY ORDERABLES Fi nal Result PATHOLOGY [facility] ([place]) [address] [place] [address] * (ABNORMAL) POCT glucose (01/06/2020 8:06 AM CDT) Glucose, POC 191(H) 71 - 98 mg/dL NILSA [facility] ([place]) Blood specimen (specimen) 01/06/2020 8:06 AM CDT 01/06/2020 8:06 AM CDT us Mathew Mccullough MD LAB POCT ORDERABLE S - DEVICE Final Result Performing Organization Address [facility]/ZIP Co de Phone Number NILSA LOWE ([place]) 1 [facility] [place] [address] * eGFR (01/06/2020 3:56 AM CDT) eGFR 63 mL/min/1.7 3 m2 NILSA LOWE ([place]) Comment: Interpretive Data Reference Interval Normal ?>/= 90 mL/min/1.73m2 Mildly decreased* ? 60 - 89 mL/min/1.73m2 Mildly to moderately decreased ?45 - 59 mL/min/1.73m2 Moderately to severely decreased ??30 - 44 mL/min/1.73m2 Severely decreased ?15 - 29 mL/min/1.73m2 Kidney Failure ?< 15 ??mL/min/1.73m2 *Relative to young adult level If -Austrian multiply value by 1.16. Estimated glomerular filtration [...] ORDERABLES Final Re sult Performing Organization Address City/[facility]/ZIP Co de Phone Number NILSA LOWE ([place]) 1 [facility] Department [place] [address] * (ABNORMAL) Differential, auto (01/06/2020 3:56 AM CDT) Neutrophil abs 12.9(H) 1.7 - 6.5 K/cumm [facility] ([place]) Imm gran abs 0.1 0.0 - 0.1 K/cumm [facility] ([place]) Lymphocyte abs 1.5 0.8 - 3.3 K/cumm [facility] ([place]) Monocyte abs 1.1(H) 0.2 - 0.8 K/cumm [facility] ([place]) Eosinophil abs 0.0 0.0 - 0.5 K/cumm [facility] ([place]) Basophil abs 0.0 0.0 - 0.1 K/cumm [facility] ([place]) Neutrophil pct 82.4 % [facility] ([place]) Comment: Interpretive Data Percent cell count reference ranges are not reported, since discordance with absolute values may lead to misinterpretation of CBC data. Current Interpretive Data was last revised on 2017. Imm gran pct 0.6 % [facility] ([place]) Comment: Interpretive Data Percent cell count reference ranges are not reported, since discordance with absolute values may lead to misinterpretation of CBC data. Current Interpretive Data was last revised on 2017. Lymphocyte pct 9.4 % [facility] ([place]) Comment: Interpretive Data Percent cell count reference ranges are not reported, since discordance with absolute values may lead to misinterpretation of CBC data. Current Interpretive Data was last revised on 2017. Monocyte pct 7.1 % [facility] ([place]) Comment: Interpretive Data Percent cell count reference ranges are not reported, since discordance with absolute values may lead to misinterpretation of CBC data. Current Interpretive Data was last revised on 2017. Eosinophil pct 0.3 % [facility] ([place]) Comment: Interpretive Data Percent cell count reference ranges are not reported, since discordance with absolute values may lead to misinterpretation of CBC data. Current Interpretive Data was last revised on 2017. Basophil pct 0.2 % [facility] ([place]) Comment: Interpretive Data Percent cell count reference ranges are not reported, since discordance with absolute values may lead to misinterpretation of CBC data. Current Interpretive Data was last revised on 2017. Blood specimen (specimen) 01/06/2020 3:56 AM CDT 01/06/2020 4:32 AM CDT Emile Escudero MD LAB BLOOD ORDERABLES Final Re sult Performing Organization Address City/[facility]/ZIP Co de Phone Number NILSA [facility] ([place]) 1 [facility] [place] [address] * (ABNORMAL) CRP (acute phase) (01/06/2020 3:56 AM CDT) CRP 236.1(H) <=10.0 mg/L NILSA Crabtree ([place]) Blood specimen (specimen) 01/06/2020 3:56 AM CDT 01/06/2020 4:30 AM CDT Mathew Mccullough MD LAB BLOOD ORDERABL ES Final Result Performing Organization Address [facility] Co de Phone Number NILSA [facility] ([place]) 1 [facility] [place] [address] * Magnesium (01/06/2020 3:56 AM CDT) Magnesium 2.0 1.4 - 2.5 mg/dL NILSA [facility] ([place]) Blood specimen (specimen) 01/06/2020 3:56 AM CDT 01/06/2020 4:30 AM CDT Emile Escudero MD LAB BLOOD ORDERABLES Final Re sult Performing Organization Address City/[facility]/ZIP Co de Phone Number NILSA [facility] ([place]) 1 [facility] [place] [address] * Phosphorus (01/06/2020 3:56 AM CDT) Phosphorus, pl 2.3 2.3 - 4.5 mg/dL [facility] ([place]) Blood specimen (specimen) 01/06/2020 3:56 AM CDT 01/06/2020 4:30 AM CDT us Emile Escudero MD LAB BLOOD ORDERABLES Final Re sult [facility] ([place]) 1 [facility] Department [place] [address] * (ABNORMAL) Comprehensive metabolic panel (01/06/2020 3:56 AM CDT) Sodium 135 135 - 145 mmol/L [facility] ([place]) Potassium, pl 4.4 3.3 - 4.9 mmol/L [facility] ([place]) [...] Final Re sult [facility] ([place]) 1 [facility] Department [place] [address] * (ABNORMAL) CBC with auto differential (01/06/2020 [...] BLOOD ORDERABLES Final Re sult NILSA LOWE ([place]) 1 [facility] [employer] [place] [address] * (ABNORMAL) POCT glucose (01/06/2020 2:28 AM CDT) Glucose, POC 214(H) 71 - 98 mg/dL NILSA LOWE ([place]) Blood specimen (specimen) 01/06/2020 2:28 AM CDT 01/06/2020 2:28 AM CDT Mathew Mccullough MD LAB POCT ORDERABLE S - DEVICE Final Result Performing Organization Address City/[facility]/ZIP Co de Phone Number NILSA LOWE ([place]) 1 [facility] [employer] [place] [address] * (ABNORMAL) POCT glucose (01/05/2020 9:43 PM CDT) Glucose, POC 293(H) 71 - 98 mg/dL NILSA LOWE ([place]) Blood specimen (specimen) 01/05/2020 9:43 PM CDT 01/05/2020 9:43 PM CDT Mathew Mccullough MD LAB POCT ORDERABLE S - DEVICE Final Result Performing Organization Address City/[facility]/ZIP Co de Phone Number NILSA LOWE ([place]) 1 [facility] [employer] [place] [address] * (ABNORMAL) POCT glucose (01/05/2020 4:53 PM CDT) Glucose, POC 176(H) 71 - 98 mg/dL [facility] ([place]) Blood specimen (specimen) 01/05/2020 4:53 PM CDT 01/05/2020 4:53 PM CDT Mathew Mccullough MD LAB POCT ORDERABLE S - DEVICE Final Result NILSA LOWE ([place]) 1 [facility] Department [place] [address] * (ABNORMAL) POCT glucose (01/05/2020 11:42 AM CDT) Glucose, POC 179(H) 71 - 98 mg/dL NILSA LOWE ([place]) Blood specimen (specimen) 01/05/2020 11:42 AM CDT 01/05/2020 11:42 AM CDT us Mathew Mccullough MD LAB POCT ORDERABLE S - DEVICE Final Result Performing Organization Address [facility] Co de Phone Number NILSA LOWE ([place]) 1 [facility] Department of [employer] [place] [address] * [place] Arterial Doppler Lower Extremity Bilateral [...] HEALTHCARE PROVIDER: EMILE ESCUDERO HISTORY: Atherosclerosis of [place] Arteries of Extremities with Intermittent Claudication, Bilateral [...] HEALTHCARE PROVIDER: EMILE ESCUDERO HISTORY: Atherosclerosis of [place] Arteries of Extremities with Intermittent Claudication, Bilateral [...] (ABNORMAL) POCT glucose (01/05/2020 8:12 AM CDT) [facility] Glucose, POC 177(H) 71 - 98 mg/dL NILSA LOWE ([place]) Blood specimen (specimen) 01/05/2020 8:12 AM CDT 01/05/2020 8:12 AM CDT Mathew Mccullough MD LAB POCT ORDERABLE S - DEVICE Final Result NILSA LOWE ([place]) 1 [facility] Department [place] [address] * (ABNORMAL) POCT glucose (01/05/2020 2:15 AM CDT) Glucose, POC 236(H) 71 - 98 mg/dL CARLOS ENRIQUEELLEN CHRISSY ([place]) Blood specimen (specimen) 01/05/2020 2:15 AM CDT 01/05/2020 2:15 AM CDT Mathew Mccullough MD LAB POCT ORDERABLE S - DEVICE Final Result NILSA [facility] ([place]) 1 [facility] Department [place] [address] * eGFR (01/05/2020 12:00 AM CDT) eGFR 59 mL/min/1.7 3 m2 NILSA LOWE ([place]) Comment: Interpretive Data Reference Interval Normal ?>/= 90 mL/min/1.73m2 Mildly decreased* ? 60 - 89 mL/min/1.73m2 Mildly to moderately decreased ?45 - 59 mL/min/1.73m2 Moderately to severely decreased ??30 - 44 mL/min/1.73m2 Severely decreased ?15 - 29 mL/min/1.73m2 Kidney Failure ?< 15 ??mL/min/1.73m2 *Relative to young adult level If -Austrian multiply value by 1.16. Estimated glomerular filtration [...] BLOOD ORDERABL ES Final Result [facility] ([place]) 1 [facility] Department [place] [address] * (ABNORMAL) Differential, auto (01/05/2020 12:00 AM [...] Neutrophil pct 81.0 % [facility] ([place]) Comment: Interpretive Data Percent cell count reference [...] revised on 2017. Basophil pct 0.1 % NILSA LOWE ([place]) Comment: Interpretive Data Percent cell count reference ranges are not reported, since discordance with absolute values may lead to misinterpretation of CBC data. Current Interpretive Data was last revised on 2017. Blood specimen (specimen) 01/05/2020 01/05/2020 12:09 AM CDT Mathew Mccullough MD LAB BLOOD ORDERABL ES Final Result Performing Organization Address [facility] Co de Phone Number NILSA LOWE ([place]) 1 [facility] [place] [address] * aPTT (01/05/2020 12:00 AM CDT) aPTT 31 25 - 37 sec NILSA LOWE ([place]) Comment: Interpretive data Heparin therapeutic range: 60-94 seconds Range based on correlation with therapeutic heparin activity range of 0.3-0.7 units/ml. Current interpretive data was last revised on 2019. Blood specimen (specimen) 01/05/2020 01/05/2020 12:09 AM CDT us Emile Escudero MD LAB BLOOD ORDERABLES Final Re sult Performing Organization Address City/[facility]/ZIP Co de Phone Number NILSA LOWE ([place]) 1 [facility] [place] [address] * (ABNORMAL) Protime-INR (01/05/2020 12:00 AM CDT) PT 16.5(H) 9.5 - 13.0 sec NILSA LOWE ([place]) INR 1.4(H) 0.9 - 1.2 NILSA LOWE ([place]) Comment: Interpretive data Oral anticoagulant therapeutic ranges: Venous thromboembolism prophylaxis or treatment: 2.0-3.0 CARDIOLOGY Standard range: 2.0-3.0 High-intensity range: 2.5-3.5 Refer to indication-specific guidelines for appropriate target ranges for prosthetic heart valve replacement. Current interpretive data was last revised on 2019. Blood specimen (specimen) 01/05/2020 01/05/2020 12:09 AM CDT Emile Escudero MD LAB BLOOD ORDERABLES Final Re sult Performing Organization Address City/[facility]/ZIP Co de Phone Number NILSA LOWE ([place]) 1 [facility] [employer] [place] [address] * Phosphorus (01/05/2020 12:00 AM CDT) Phosphorus, pl 2.5 2.3 - 4.5 mg/dL NILSA [facility] ([place]) Blood specimen (specimen) 01/05/2020 01/05/2020 12:09 AM CDT Emile Escudero MD LAB BLOOD ORDERABLES Final Re sult Performing Organization Address [facility] Co de Phone Number CARLOS ENRIQUEELLEN LOWE ([place]) 1 [facility] [employer] [place] [address] * Magnesium (01/05/2020 12:00 AM CDT) Magnesium 1.9 1.4 - 2.5 mg/dL NILSA [facility] ([place]) Blood specimen (specimen) 01/05/2020 01/05/2020 12:09 AM CDT Emile Escudero MD LAB BLOOD ORDERABLES Final Re sult Performing Organization Address City/[facility]/ZIP Co de Phone Number NILSA LOWE ([place]) 1 [facility] [employer] [place] [address] * (ABNORMAL) Comprehensive metabolic panel (01/05/2020 12:00 AM CDT) Sodium 132(L) 135 - 145 mmol/L [facility] ([place]) Potassium, pl 3.9 3.3 - 4.9 mmol/L [facility] ([place]) Chloride 99 97 - 110 mmol/L [facility] ([place]) CO2 25 22 - 32 mmol/L [facility] ([place]) Anion gap 8 2 - 15 mmol/L [facility] ([place]) BUN 17 8 - 25 mg/dL [facility] ([place]) Creatinine 0.98 0.60 - 1.10 mg/dL [facility] ([place]) Glucose 278(H) 70 - 199 mg/dL [facility] ([place]) [...] Final Re sult NILSA [facility] ([place]) 1 [facility] Department [place] [address] * (ABNORMAL) CBC with auto differential (01/05/2020 [...] 90.8 81.3 - 96.4 fL [facility] ([place]) MCH 29.4 27.1 - 33.3 pg [facility] ([place]) MCHC 32.4 32.3 - 35.7 g/dL [facility] ([place]) RDW CV 13.8 11.1 - 14.9 % [facility] ([place]) RDW SD 45.2 35.7 - 48.1 fL [facility] ([place]) NRBC abs 0.00 0.00 - 0.01 K/cumm [facility] ([place]) Blood specimen (specimen) 01/05/2020 01/05/2020 12:09 AM CDT us Emile Escudero MD LAB BLOOD ORDERABLES Final Re sult [facility]SA [facility] ([place]) 1 [facility] Department [place] [address] * (ABNORMAL) Procalcitonin (01/05/2020 12:00 AM CDT) Procalcitonin 0.44(H) <=0.15 ng/mL [facility] ([place]) Comment: Test Performed by: [facility] [address] [place] [address] International Trade Specialist: Mane Patel M.D. Ph.D.; CLIA# [id number] Blood specimen (specimen) 01/05/2020 01/05/2020 12:09 AM CDT Emile Escudero MD LAB BLOOD ORDERABLES Final Re sult Performing Organization Address [facility]/ZIP Co de Phone Number NILSA LOWE ([place]) 1 [place] [address] * COVID-19 Coronavirus RNA Nasopharyngeal (01/04/2020 9:01 PM CDT) COVID-19 RNA Negative Negative [facility] ([place]) Comment: Testing performed by [facility] ([phone]). This test is performed using the [employer] Xpert Xpress SARS-CoV-2 assay. ??This is a real-time RT-PCR test intended for the qualitative detection of nucleic acid from the SARS-CoV-2. ??This assay has been reviewed by the FDA for Emergency Use Authorization (EUA). The performance characteristics have been verified by the [facility]. ??Results must be considered in the clinical context and a negative result does not rule out infection. Testing performed by: [facility], [address] [place] [address]., [id number] Nasopharyngeal 01/04/2020 9: 01 PM CDT 01/04/2020 11:51 PM CDT Narrative [facility] ([place]) - 01/05/2020 12:47 AM CDT Is the patient experiencing any symptoms consistent with COVID (eg. Fever, cough, shortness of breath)?->No What is the reason for testing?->Screening prior to urgent (<12 hr) surgery, procedure, BMT, immunosuppressive therapy Emile Escudero MD LAB MICROBIOLOGY - GENERAL OR DERABLES Final Result Performing Organization Address City/[facility]/ZIP Co de Phone Number NILSA LOWE ([place]) 1 [place] [address] * (ABNORMAL) POCT glucose (01/04/2020 8:56 PM CDT) Glucose, POC 363(H) 71 - 98 mg/dL [facility] ([place]) Blood specimen (specimen) 01/04/2020 8:56 PM CDT 01/04/2020 8:56 PM CDT Mathew Mccullough MD LAB POCT ORDERABLE S - DEVICE Final Result Performing Organization Address [facility]/ZIP Co de Phone Number NILSA [facility] ([place]) 1 [facility] of [employer] [place] [address] * (ABNORMAL) CRP (acute phase) (01/04/2020 5:29 PM CDT) CRP 340.9(H) <=10.0 mg/L NILSA Crabtree ([place]) Blood specimen (specimen) 01/04/2020 5:29 PM CDT 01/04/2020 8:23 PM CDT us Emile Escudero MD LAB BLOOD ORDERABLES Final Re sult Performing Organization Address [facility] Co de Phone Number NILSA [facility] ([place]) 1 [facility] of [employer] [place] [address] documented in this encounter Visit Diagnoses Not [...] cut, dissolve, open or otherwise manipulate tablet/capsule. bupivacaine (MARCAINE) 0.5 % (5 mg/mL) preservative free injection As needed, Starting on Thu01/06/20 at 1249, Intra-Op Given 01/06/2020 12:49 PM CDT 10 mL Surgical Site dextrose (D10W) 10% bolus 250 mL 250 [...] hypoglycemia., Indications: hypoglycemic disorderIndications:hypoglycem ic disorder dextrose gel in packet 15 g [...] of hypoglycemia., Indications: hypoglycemic disorderIndications:hypoglycem ic disorder enoxaparin (LOVENOX) syringe 40 mg 40 [...] 1 tablet insulin glargine (LANTUS,BASAGLAR) pen injection 32 Units [...] Given 01/08/2020 8:32 PM CDT 4 Units L eft Lower Abdomen insulin lispro (HumaLOG) pen injection [...] CDT 5 Units Le ft Lower Abdomen lisinopriL (PRINIVIL,ZESTRIL) tablet 10 mg 10 mg, [...] Given 01/06/2020 10:33 PM CDT 30 mL mineral oil (FLEET MINERAL OIL) enema 1 [...] Given 01/05/2020 8:27 AM CDT 5 mg sodium chloride 0.9 % irrigation As needed, Starting on Thu01/06/20 at 1249, Intra-Op Given 01/06/2020 12:49 PM CDT 1,000 mL Surgical Site sodium chloride 0.9% flush 5-10 mL 5-10 [...] based on line type, size, and protocol. vancomycin (VANCOCIN) 1,750 mg in sodium chloride 0.9% 500 mL IVPB 1,750 mg, intravenous, at 258.8 mL/hr, Administer over 120 Minutes, Every 24 hours, First dose (after last modification) on Kellie 01/12/20 at 0600, Indications: Skin/Soft Tissue InfectionIndications:Skin/Soft Tissue Infection documented in this encounter Discontinued Medications Medication [...] Leach RN) 0814 (Given - Provider: Olivier Quezada, RN) enoxaparin (LOVENOX) syringe 40 mg 40 mg, subcutaneous, Daily (for enoxaparin), First dose on Thu01/04/20 at 2100, Indications: Deep Vein Thrombosis Prevention 2024 (Given - Provider: Lakia Crabtree, ALIREZA) 2114 (Given - Provider: Darlyn Hernandez, ALIREZA) gabapentin (NEURONTIN) capsule 400 mg 400 mg, oral, 3 times daily, First dose on Thu01/04/20 at 2100 0838 (Not Given - Provider: Claudia Nguyen RN - Reason: Patient/family refused - Comment: Pt stated she took Medication already this morning, after stating to her the last dose was at 2032, she stated no I took that this morning already. )170 (Given - Provider: Claudia Nguyen RN)2022 (Given - Provider: Lakia Crabtree RN) 0758 (Given - Provider: Mary Leach, ALIREZA)1220 (Given - Provider: Mary Leach RN)1642 (Not Given - Provider: Mary Leach RN - Reason: Other - Comment: given early. Doctor aware)2114 (Given - Provider: Darlyn Hernandez RN) 08 (Given - Provider: Olivier Quezada, ALIREZA)162 (Given - Provider: Radha Tran, ALIREZA) insulin glargine (LANTUS,BASAGLAR) pen injection 32 Units 32 Units, subcutaneous, Nightly, First dose (after last modification) on Thu01/06/20 at 2100, Do not mix with other insulins, Indications: Diabetes Mellitus 2023 (Given - Provider: Lakia Crabtree, ALIREZA) 2112 (Given - Provider: Darlyn Hernandez, ALIREZA) [...] 2023 (Given - Provider: Lakia Crabtree RN) 2113 (Given - Provider: Darlyn Hernandez RN) insulin lispro (HumaLOG) pen injection 1-7 Units [...] Olivier Quezada RN)1154 (Given - Provider: Olivier Quezada RN)1731 (Given - Provider: Olivier Quezada, ALIREZA) lisinopriL [...] and size. 0455 (Given - Provider: Lakia Crabtree RN)1353 (Given - Provider: Claudia Nguyen, ALIREZA)2024 (Not Given - Provider: Lakia Crabtree RN [...] on Thu01/12/20 at 0600, Indications: Skin/Soft Tissue Infection vancomycin 1,000 mg/200 mL in sodium chloride 0.9% (premix) 1,000 mg 1,000 mg, intravenous, Administer over 60 Minutes, Every 12 hours, First dose (after last modification) on Thu01/10/20 at 0600, Indications: Skin/Soft Tissue Infection 0605 (New Bag - Provider: Lakia Crabtree RN)1816 (New Bag - Provider: Mary Leach, ALIREZA) 0518 (New Bag - Provider: Darlyn Hernandez, ALIREZA) vancomycin 750 mg/150 mL in sodium chloride 0.9% (premix) 750 mg (CANCELED) 750 mg, intravenous, Administer over 60 Minutes, Every 12 hours, First dose (after last modification) on Thu01/08/20 at 1800, Indications: Skin/Soft Tissue Infection 0455 (New Bag - Provider: Lakia Crabtree RN)1705 (New Bag - Provider: Claudia Nguyen, ALIREZA) PRN Medication Order 01/09/2020 01/10/2020 01/11/2020 acetaminophen (TYLENOL) tablet 650 mg 650 mg, oral, Every 4 hours PRN, 1st line for pain, Starting on Thu01/04/20 at 1940, Indications: Pain 0200 (Given - Provider: Darlyn Hernandez RN)1156 (Given - Provider: Olivier Quezada RN)1734 (Given - Provider: Olivier Quezada RN) benzonatate (TESSALON) capsule 100 mg 100 [...] Crabtree RN) 1135 (Given - Provider: Mary Leach RN)1816 (Given - Provider: Mary Leach RN) magnesium hydroxide (MILK OF MAGNESIA) 80 mg/mL [...] chloride 0.9% 500 mL IVPB 1 01/11/2020 vancomycin 1,000 mg/200 mL i n sodium chloride 0.9% (premix) 1,000 mg 2 01/10/2020 01/06/20 20 sodium chloride 0.9% flush 5-10 mL 1 2019 sodium chloride 0.9% flush 5-20 mL 1 2019 vancomycin 750 mg/150 mL in sodium chloride 0.9% (premix) 750 mg 2 01/08/2020 01/04/2020 insulin lispro (HumaLOG) pen injection 2 Units 1 01/07/2020 insulin lispro (HumaLOG) pen injection 5 Units 1 01/07/2020 sodium phosphate - potassium phosphate (K-PHOS NEUTRAL) tablet 500 mg 1 01/07/2020 benzonatate (TESSALON) capsule 100 mg 1 cefepime (MAXIPIME) 2,000 mg in sodium chloride 0.9% 100 mL IVPB 01/06/2020 fentaNYL (SUBLIMAZE) preserv ative free injection 25 mcg 1 01/06/2020 insulin glargine (LANTUS,BAS AGLAR) pen injection 32 Units 1 01/06/2020 naloxone (NARCAN) 0.4 mg/mL injection 0.04-0.4 mg 1 01/06/2020 potassium phosphates 12 mmol in sodium chloride 0.9% 250 mL IVPB 01/06/2020 sodium chloride 0.9% flush 0.5-20 mL 3 07/12/201901/04/2020 sodium chloride 0.9% infusion 01/06/2020 potassium phosphates 11 mmol in sodium chloride 0.9% 250 mL IVPB 1 01/05/2020 acetaminophen (TYLENOL) tablet 650 mg amLODIPine (NORVASC) tablet 5 mg 1 01/04/20 20 bisacodyl EC (DULCOLAX EC) tablet 10 mg 1 0 01/04/2020 ciprofloxacin (CIPRO) 400 mg /200 mL in dextrose 5% (premix) 400 mg 01/04/2020 dextrose (D10W) 10% bolus 250 mL 1 01/04/20 20 dextrose gel in packet 15 g 1 01/04/2020 docusate sodium (COLACE) capsule 100 mg 1 0 01/04/2020 enoxaparin (LOVENOX) syringe 40 mg 2019 gabapentin (NEURONTIN) capsule 400 mg glucagon injection 1 mg 01/04/2020 hydrALAZINE (APRESOLINE) injection 10 mg 01/04/2020 HYDROcodone-acetaminophen (N ORCO) 5-325 mg per tablet 1 tablet 1 01/04/2020 insulin glargine (LANTUS,BAS AGLAR) pen injection 25 Units 01/04/2020 insulin lispro (HumaLOG) pen injection 1-4 Units 01/04/2020 insulin lispro (HumaLOG) pen injection 1-7 Units 01/04/2020 Lactated Ringer's (LR) infusion 0 lisinopriL (PRINIVIL,ZESTRIL) tablet 10 mg 01/04/2020 magnesium hydroxide (MILK OF MAGNESIA) 80 mg/mL (33.3 mg/mL as elemental magnesium) oral suspension 30 mL 01/04/2020 metroNIDAZOLE (FLAGYL) 500 m g/100 mL in sodium chloride (premix) 500 mg 01/04/2020 mineral oil (FLEET MINERAL O [place]) enema 1 enema 01/04/2020 ondansetron (ZOFRAN) injection 4 mg 01/03 ondansetron ODT (ZOFRAN-ODT) disintegrating tablet 4 mg 01/04/2020 oxyCODONE (ROXICODONE) tablet 5 mg 2019 Lab Orders Without Results Count Last Ordered D ate First Ordered Date POCT GLUCOSE DEVICE 12 01/11/2020 01/07/20 20 EKG Orders Without Results Count Last Ordered D ate First Ordered Date ECG 12-LEAD 1 01/04/2020 Diet Count Last Ordered Date First Orde red Date ADULT DISCHARGE DIET 1 01/10/2020 Nursing Count Last Ordered Date First Orde red Date DISCHARGE CALL PROVIDER 6 01/10/2020 DISCHARGE INSTRUCTIONS 1 01/10/2020 FOLLOW UP WITH ESTABLISHED PROVIDER 1 01/09 OTHER FOLLOW UP 1 01/10/2020 Consult Count Last Ordered Date First [...] as of this encounter Care Teams Packaging Coordinator Relationship Specialty Start Date End Date Cherelle Corcoran MD PCP - General Family Medicine 08/30/19 documented as of this encounter
--- OUTSIDE RECORDS SUMMARY | 2024-07-04 04:24 | XMS_ITS | Encounter Summary ---
Author Organization [facility] Address [address] [place] [address] Phone Care Team Providers Care Ground Support Agent Name Role Phone Cherelle Corcoran MD Primary Care Pro vider Reason for Visit * Auth/Cert Specialty Diagnoses / Procedures Referred By Contac t Referred To Contact Referral ID Status Reason Start Date Expiration Date Visits Re quested Visits Authorized [id number] 1 1 Encounter Details Date Type Department Care Team (Late st Contact Info) Description 11/22/2019 11:30 AM CDT Home Care Visit [facility] [address] [place] [address] Lottie Champion RN SN HOME VISIT Social [...] on file 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 Gender Identity Female 02/08/2020 6:39 PM CDT Sexual Orientation Not on file documented as of this encounter Last Filed Vital Signs Vital Sign Reading Time Taken Comments Blood Pressure - - Pulse 82 11/22/2019 1:09 PM CDT Temperature 36.6 ??C (97.9 ??F) 11/22/2019 1:09 PM CD T Respiratory Rate 18 11/22/2019 1:09 PM CDT Oxygen Saturation 97% 11/22/2019 1:09 PM CDT Inhaled Oxygen Concentration - - Weight - - Height - - Body Mass Index - - documented in this encounter Plan of Treatment Upcoming Encounters Date Type Department Care Team (Latest Contact Info) Description 07/13/2024 9:00 AM RETAIL SELLING SPECIALIST Hospital Encounter [facility] GI Lab [address] [place] [address] Jaya Grier MD [address] GA[address]ES [address] [place] [address] 07/13/2024 9:00 AM RETAIL SELLING SPECIALIST - 07/13/2024 9:30 AM RETAIL SELLING SPECIALIST Surgery [facility] GI Lab [address] [place] [address] Jaya Grier MD [address] [facility] GAINES [address] [place] [address] ESOPHAGOGASTRODUODENOSCOPY Scheduled Procedures Name Priority Associated Diagnoses Date/Ti me ESOPHAGOGASTRODUODENOSCOPY Anemia, unspecified type Gastritis without bleeding, unspecified chronicity, unspecified gastritis type 07/13/2024 9:00 AM RETAIL SELLING SPECIALIST COLONOSCOPY Iron deficiency anemia due to chronic blood loss documented as of this encounter Visit Diagnoses Not on filedocumented in this encounter Home Health Visit - Care Plan Visit Details Visit Type -SN Home Visit Discipline -Nursing Home Problems Problem Description Start [...] visit Learning/Teac jasiel Needs - Diabetes Disciplines: Nursing Home Learning [...] visit during episode of care Description: Home acupressure therapist to measure vital signs during every home health visit during episode of care. Monitor patient's vital signs every home health visit No Understanding of when to notify MD in absence of home care staff Description: Understanding of when to notify MD in absence of home care staff Standardized Guidelines No Demonstrate adequate knowledge of Diabetes Description: [...] in absence of home care staff Completed called dr lang office requesting clarification of wound care. pt has wounds noted and only dry dressing orders. Blood glucose monitoring Description: Patient/caregiver to perform blood sugar testing and record in log. Frequency of testing bid and prn for feelings of hypo or hyperglycemia Problem:Learning/Teac jasiel Needs - Diabetes Goal:Demonstrate adequate knowledge of Diabetes Completed instructed pt on importance of timing of blood sugar testing. verbalized understanding. documented in this encounter Care Teams Ground Support Agent Relationship Specialty Start Date End Date Cherelle Corcoran MD PCP - General Family Medicine 08/30/19 documented as of this encounter
--- OUTSIDE RECORDS SUMMARY | 2024-07-04 04:24 | XMS_ITS | Encounter Summary ---
Author Organization [facility] Address [address] [place] [address] Phone Care Team Providers Care Loans Consultant Name Role Phone Cherelle Corcoran MD Primary Care Pro vider Reason for Visit * Auth/Cert Specialty Diagnoses / Procedures Referred By Contac t Referred To Contact Referral ID Status Reason Start Date Expiration Date Visits Re quested Visits Authorized [id number] 1 1 Encounter Details Date Type Department Care Team (Late st Contact Info) Description 11/22/2019 Home Care Visit [facility] [address] [address] [address] [place], [place] [id number] Lottie Champion RN TRAVEL SCREENING CASE COMMUNICATION [...] file Legal Sex Female 9:03 AM OUTREACH COUNSELOR Gender Identity Female 02/08/2020 6:39 PM CDT Sexual Orientation Not on file documented as of this encounter Plan of Treatment Upcoming Encounters Date Type Department Care Team (Latest Contact Info) Description 07/13/2024 9:00 AM OUTREACH COUNSELOR Hospital Encounter [facility] Lab [address] [place] [address] Jaya Grier MD [facility] [address] [place] [address] 07/13/2024 9:00 AM OUTREACH COUNSELOR - 07/13/2024 9:30 AM OUTREACH COUNSELOR Surgery [facility] GI Lab [address] [place] [address] Jaya Grier MD [facility] [address] [place] [address] ESOPHAGOGASTRODUODENOSCOPY Scheduled Procedures Name Priority Associated Diagnoses Date/Ti me ESOPHAGOGASTRODUODENOSCOPY Anemia, unspecified type Gastritis without bleeding, unspecified chronicity, unspecified gastritis type 07/13/2024 9:00 AM OUTREACH COUNSELOR COLONOSCOPY Iron deficiency anemia due to chronic blood loss documented as of this encounter Visit Diagnoses Not on filedocumented in this encounter Care Teams Loans Consultant Relationship Specialty Start Date End Date Cherelle Corcoran MD PCP - General Family Medicine 08/30/19 documented as of this encounter
--- OUTSIDE RECORDS SUMMARY | 2024-07-04 04:24 | XMS_ITS | Encounter Summary ---
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 Gender Identity Female 02/08/2020 6:39 PM CDT [...] syringe with needle, insulin (INSULIN SYRINGE-NEEDLE U-100 [facility] 3 times a day 09/12/2017 3 VALERIAN [...] (Latest Contact Info) Description 07/13/2024 9:00 AM DENTAL SECRETARY Hospital Encounter [facility] GI Lab [address] [place] [address] Jaya Grier MD [address] [place] [address] [address] [place] [address] 07/13/2024 9:00 AM DENTAL SECRETARY - 07/13/2024 9:30 AM DENTAL SECRETARY Surgery [facility] Lab [address] [place] [address] Jaya Grier MD [address] [place] [address] [address] [place] [address] ESOPHAGOGASTRODUODENOSCOPY Scheduled Procedures Name Priority Associated Diagnoses Date/Ti me ESOPHAGOGASTRODUODENOSCOPY Anemia, unspecified type Gastritis without bleeding, unspecified chronicity, unspecified gastritis type 07/13/2024 9:00 AM DENTAL SECRETARY COLONOSCOPY Iron deficiency anemia due to chronic blood loss documented as of this encounter Procedures Procedure Name Priority Date/Time Associated Diagnosis Comments TISSUE AEROBIC AND ANAEROBIC CULTURE AND GRAM STAIN Routine 12/14/2019 1:35 PM CDT documented in this encounter Results * (ABNORMAL) Tissue aerobic and anaerobic culture and gram stain Tissue Toe (12/14/2019 1:35 PM CDT) Direct Specimen Exam Stain: No polymorphonuclear leukocytes seen. Abundant Gram Positive Cocci NILSA LOWE ([place]) Comment:Testing performed by : [facility], [address] [place] [address], [place]., [address] Report Final Report: Moderate Mixed microorganisms. Includes the following: Moderate Escherichia coli Moderate Yeast (.) NILSA LOWE ([place]) Comment:Testing performed by : [facility], [address] [facility], [place]., [address] Organism MIXED MICROORGANISMS. [facility] ([place]) Organism ESCHERICHIA COLI [facility] ([place]) Organism YEAST [facility] ([place]) Tissue (Toe) 12/14/2019 1:35 PM CDT 12/14/2019 8:25 PM CDT Narrative [facility] ([place]) - 12/18/2019 2:26 PM CDT right great toe Testing performed by [facility] Microbiology Laboratory ([phone]) Specimens submitted from normally sterile body sites [...] revised on 2019. Organism Antibiotic Method Susceptibility Escherichia coli Ampicillin INTERPRETATION Susceptible Escherichia coli Cefazolin INTERPRETATION Susceptible Escherichia coli Gentamicin INTERPRETATION Susceptible Escherichia coli Ampicillin with Sulbactam INTERPRETAT ION Susceptible Escherichia coli Trimethoprim with Sulfamethoxazole IN TERPRETATION Resistant Escherichia coli Meropenem INTERPRETATION Susceptible Escherichia coli Cefepime INTERPRETATION Susceptible Escherichia coli Ciprofloxacin INTERPRETATION Intermediate Escherichia coli Ceftazidime INTERPRETATION Susceptible Escherichia coli Ceftriaxone INTERPRETATION Susceptible Escherichia coli Piperacillin/Tazobactam INTERPRETATIO N Susceptible us Tasha Dick MD LAB MICROBIOLOGY - GENERAL O RDERABLES Final Result [facility] ([place]) [address] [facility] [place] [address] documented in this encounter Visit Diagnoses Not on filedocumented in this encounter Care Teams Flap Lining Binder Relationship Specialty Start Date End Date Cherelle Corcoran MD PCP - General Family Medicine 08/30/19 documented as of this encounter
--- OUTSIDE RECORDS SUMMARY | 2024-07-04 04:24 | XMS_ITS | Encounter Summary ---
Author Organization [facility] Address [address] [facility] [address] [place] [address] Care Team Providers Care Dialysis Tech Name Role Phone Cherelle Corcoran MD Primary Care Pro vider Encounter Details Date Type Department Care Team (Late st Contact Info) Description 11/03/2019 3:45 PM CDT Office Visit [facility] Vascular and Vein Surgery [address] [facility] [address] [place] [address] Cristóbal Peralta, SENIOR PROGRAM PLANNER [address] [facility] [address] [facility] [address] Acute osteomyelitis of toe of right foot (CMS/HCC) (Primary Dx); Ulcer of toe of [...] on file Legal Sex Female 9:03 AM PRODUCT SAFETY EXPERT Gender Identity Female 02/08/2020 6:39 PM CDT Sexual Orientation Not on file documented as of this encounter Last Filed Vital Signs Vital Sign Reading Time Taken Comments Blood Pressure 117/75 11/03/2019 4:05 PM CDT Pulse 89 11/03/2019 4:05 PM CDT Temperature - - Respiratory Rate - - Oxygen Saturation - - Inhaled Oxygen Concentration - - Weight 56.7 kg (125 lb) 11/03/2019 4:05 PM CDT Height 157.5 cm (5' 2 ) 11/03/2019 4:05 PM CDT Body Mass Index 22.86 11/03/2019 4:05 PM CDT documented in this encounter Progress Notes * Cristóbal Peralta, JARAD - 11/03/2019 3:45 PM CDT Subjective/Objective Patient ID: Barbara Chakraborty is a 69 y.o. female. Chief Complaint No chief complaint on file. History of Present Illness 69-year-old female with history of schizophrenia, diabetes and peripheral neuropathy returns today for scheduled follow-up. She is being followed for diabetic foot ulcerations to her right 1st and 4th toes. Recent MRI performed at [facility] was positive for osteomyelitis to the distal phalanx of her right 1st toe and also associated to her right 4th toe. Patient states she has been treated with oral antibiotic therapy and local wound care consisting of Betadine paint to her toes. She states she has been doing well since her previous visit and states her ulcerations appear stable and appear to be slow healing. She denies any fevers or chills or purulent drainage. She does report a newly developed ulceration which is superficial to the medial aspect of her right 2nd toe in the interdigital space. She reports associated serous drainage. Patient has no other complaints or concerns at this time. Current Outpatient Medications: ??? amino acids-protein hydr-fiber [...] daily, Disp: 6mL, Rfl: 1 ??? sulfamethoxazole-trimethoprim (BACTRIM) 400-80 mg per tablet, Take 1 tablet by [...] on phone: None Gets together: None Attends alevism service: None Active member of club or [...] No murmurs, rubs or gallops appreciated. Extremities: Lower extremities warm well perfused, bilateral femoral pulse palpable, pedal pulses palpable bilaterally. Abdominal: Soft, nontender, no masses. Normal bowel sounds. Musculoskeletal: Normal range of motion. Neurologic: Cranial nerves 2-12 intact. Strength and sensation intact bilaterally. Skin: Warm and dry. No rashes. No discoloration. Hematologic/Lymphatic: No adenopathy, no ecchymoses. Psychiatric: Normal mood and affect. Behavior normal.Judgment normal. Assessment/Plan Diagnoses and all orders for this visit: Acute osteomyelitis of toe of right foot ([facility]) (M86.171) (Primary) Assessment & Plan: Impression: Patient recently had MRI performed at [facility] which revealed acute osteomyelitis to the distal [...] exposed (CMS/HCC) (L97.512) Assessment & Plan: Impression: Diabetic foot ulcer located to lateral aspect of her right 1st toe and to the interdigital space of her right 4th toe remains stable. Findings of acute osteomyelitis on recent MRI performed at [facility]. She is being treated with antibiotic therapy [...] require toe amputations if her ulcerations worsen. Cristóbal Peralta NP Cosigned by Guy Walsh MD at 11/08/2019 9:37 AM CDT documented in this encounter Miscellaneous Notes * Assessment & Plan Note - Cristóbal Peralta NP - 11/04/2019 3:45 PM CDT Associated Problem(s): Ulcer of toe of right foot, with fat layer exposed (HCC) (Resolved 08/28/2020) Impression: Diabetic foot ulcer located to lateral aspect of her right 1st toe and to the interdigital space of her right 4th toe remains stable. Findings of acute osteomyelitis on recent MRI performed at [facility]. She is being treated with antibiotic therapy [...] require toe amputations if her ulcerations worsen. * Assessment & Plan Note - Cristóbal Peralta NP - 11/04/2019 3:43 PM CDT Associated Problem(s): Acute osteomyelitis of toe of right foot (HCC) (Resolved 04/17/2020) Impression: Patient recently had MRI performed at [facility] which revealed acute osteomyelitis to the distal [...] toe amputations with worsening of her ulcerations. documented in this encounter Plan of Treatment Upcoming Encounters Date Type Department Care Team (Latest Contact Info) Description 07/13/2024 9:00 AM PRODUCT SAFETY EXPERT Hospital Encounter [facility] GI Lab [address] [place] [address] Jaya Grier MD [facility] [address] GA[address] [place] [address] 07/13/2024 9:00 AM PRODUCT SAFETY EXPERT - 07/13/2024 9:30 AM PRODUCT SAFETY EXPERT Surgery [facility] Lab [address] [place] [address] Jaya Grier MD [facility] [address] [place] [address] ESOPHAGOGASTRODUODENOSCOPY Scheduled Procedures Name Priority Associated Diagnoses Date/Ti il ESOPHAGOGASTRODUODENOSCOPY Anemia, unspecified type Gastritis without bleeding, unspecified chronicity, unspecified gastritis type 07/13/2024 9:00 AM PRODUCT SAFETY EXPERT COLONOSCOPY Iron deficiency anemia due to chronic blood loss documented as of this encounter Visit Diagnoses Diagnosis Acute osteomyelitis of toe of right foot (HCC)- Primary Ulcer of toe of right foot, with fat layer exposed (HCC) Anemia, unspecified type Gastritis without bleeding, unspecified chronicity, unspecified gastritis type documented in this encounter Care Teams Dialysis Tech Relationship Specialty Start Date End Date Cherelle Corcoran MD PCP - General Family Medicine 08/30/19 documented as of this encounter
--- OUTSIDE RECORDS SUMMARY | 2024-07-04 04:24 | XMS_ITS | Encounter Summary ---
Author Organization [facility] Address [address] [facility] [address] [place] [address] Care Team Providers Care Cell Operation Supervisor Name Role Phone Cherelle Corcoran MD Primary Care Pro vider Encounter Details Date Type Department Care Team (Late st Contact Info) Description 12/26/2019 Telephone [facility] Primary Care [address] [facility] [address] [place] [address] Cherelle Corcoran MD [address] [facility] [address] [place] [address] Social History Tobacco Use Types Packs/Day Years Used Date Smoking Tobacco: Never Smokeless Tobacco: Never Alcohol Use Standard Drinks/Week Comments Not Currently 0 (1 standard drink = 0.6 oz pur e alcohol) PHQ-2 Answer Date Recorded PHQ-2 Score 0 08/30/2019 Comments No Sex and Gender Information Value Date Recorded Sex Assigned at Not on file Legal Sex Female 9:03 AM MEDICAL TECHNOLOGIST CHEMISTRY Gender Identity Female 02/08/2020 6:39 PM CDT Sexual Orientation Not on file documented as of this encounter Miscellaneous Notes * Telephone Encounter - Natacha London MA - 01/05/2020 10:11 AM CDT [facility]. * Telephone Encounter - Natacha London MA - 01/05/2020 9:53 AM CDT Pt scheduled for appt in office today. * Telephone Encounter - Natacha London MA - 12/30/2019 11:06 AM CDT Tried calling pt daughter but unable to leave a voicemail because mailbox is full. * Telephone Encounter - Cherelle Corcoran MD - 12/30/2019 8:10 AM CDT If fasting blood sugar is above 140 she needs to increase to 33 units today. On Thursday if still above 140 fasting increase to 36 units. Will fu 01/04 to discuss further. * Telephone Encounter - Natacha London MA - 12/29/2019 4:54 PM CDT Spoke with pt daughter they just left an appt at Dr. Walsh's office. Pt had an emergency MRI done on toes Thursday night and determined infection is in the bone. Next pik line will be placed for IV antibiotic administration. Pt has seen wound care at [facility] twice to have wound scraped. Last visit being this Thursday. I will request notes. Daughter states pt is now taking 30 units of Baslagar. She would like to know what the max dose is? Pt is scheduled for an appt on 01/05/2020 * Telephone Encounter - Cherelle Corcoran MD - 12/26/2019 12:26 PM CDT Patient needs follow up for blood pressure and blood sugar. Please schedule soon. Thanks documented in this encounter Plan of Treatment Upcoming Encounters Date Type Department Care Team (Latest Contact Info) Description 07/13/2024 9:00 AM MEDICAL TECHNOLOGIST CHEMISTRY Hospital Encounter [facility] GI Lab [address] [place] [address] Jaya Grier MD [facility] [address] [place] [address] 07/13/2024 9:00 AM MEDICAL TECHNOLOGIST CHEMISTRY - 07/13/2024 9:30 AM MEDICAL TECHNOLOGIST CHEMISTRY Surgery [facility] GI Lab [address] [place] [address] Jaya Grier MD [address] [place] [address] [address] [place] [address] ESOPHAGOGASTRODUODENOSCOPY Scheduled Procedures Name Priority Associated Diagnoses Date/Ti me ESOPHAGOGASTRODUODENOSCOPY Anemia, unspecified type Gastritis without bleeding, unspecified chronicity, unspecified gastritis type 07/13/2024 9:00 AM MEDICAL TECHNOLOGIST CHEMISTRY COLONOSCOPY Iron deficiency anemia due to chronic blood loss documented as of this encounter Visit Diagnoses Not on filedocumented in this encounter Care Teams Cell Operation Supervisor Relationship Specialty Start Date End Date Cherelle Corcoran MD PCP - General Family Medicine 08/30/19 documented as of this encounter
--- OUTSIDE RECORDS SUMMARY | 2024-07-04 04:25 | XMS_ITS | Encounter Summary ---
Author Organization [facility] Address [address] [facility] [address] [place] [address] Care Team Providers Care Fare Enforcement Officer Name Role Phone Cherelle Corcoran MD Primary Care Pro vider Encounter Details Date Type Department Care Team (Late st Contact Info) Description 08/31/2019 Telephone [facility] Primary Care [address] [facility] [address] [place] [address] Cherelle Corcoran MD [facility] [facility] [address] [place] [address] Social History Tobacco Use Types Packs/Day Years Used Date Smoking Tobacco: Never Smokeless Tobacco: Never Alcohol Use Standard Drinks/Week Comments Not Currently 0 (1 standard drink = 0.6 oz pur e alcohol) PHQ-2 Answer Date Recorded PHQ-2 Score 0 08/30/2019 Comments No Sex and Gender Information Value Date Recorded Sex Assigned at Not on file Legal Sex Female 9:03 AM YARD CLEANER Gender Identity Female 02/08/2020 6:39 PM CDT Sexual Orientation Not on file documented as of this encounter Miscellaneous Notes * Telephone Encounter - Natacha London MA - 08/31/2019 10:53 AM CDT Daughter returned call states pt will be seeing Dr. Walsh tomorrow afternoon. * Telephone Encounter - Natacha London MA - 08/31/2019 10:33 AM CDT Returned call to daughter regarding vascular surgery appointment. Left detailed message stating as long as can get her in RA it does not matter who pt sees. Requested she return my call. * Telephone Encounter - Shelly Gilman - 08/31/2019 10:12 AM CDT Pt's daughter would like to know if her mother (PT) could see another Cardiovascular doctor. She would like to know if Dr. Kauffman is her only option because Dr. Kauffman does not have any convenient times that pt can be seen with her. Pt needs afternoon appointment. Would like to if Dr. Walsh is anoption. Please call Areli. [phone] documented in this encounter Plan of Treatment Upcoming Encounters Date Type Department Care Team (Latest Contact Info) Description 07/13/2024 9:00 AM YARD CLEANER Hospital Encounter [facility] GI Lab [address] [place] [address] Jaya Grier MD [address] [place] [address] [address] GA[address]ES [address] [place] [address] 07/13/2024 9:00 AM YARD CLEANER - 07/13/2024 9:30 AM YARD CLEANER Surgery [facility] GI Lab [address] [place] [address] Jaya Grier MD [facility] [address] GA[address] [place] [address] ESOPHAGOGASTRODUODENOSCOPY Scheduled Procedures Name Priority Associated Diagnoses Date/Ti me ESOPHAGOGASTRODUODENOSCOPY Anemia, unspecified type Gastritis without bleeding, unspecified chronicity, unspecified gastritis type 07/13/2024 9:00 AM YARD CLEANER COLONOSCOPY Iron deficiency anemia due to chronic blood loss documented as of this encounter Visit Diagnoses Not on filedocumented in this encounter Care Teams Fare Enforcement Officer Relationship Specialty Start Date End Date Cherelle Corcoran MD PCP - General Family Medicine 08/30/19 documented as of this encounter
--- OUTSIDE RECORDS SUMMARY | 2024-07-04 04:25 | XMS_ITS | Encounter Summary ---
Author Organization [facility] Address [address] [place] [address] Phone Care Team Providers Care Gas Meter Prover Name Role Phone Cherelle Corcoran MD Primary Care Pro vider Reason for Visit * Auth/Cert Specialty Diagnoses / Procedures Referred By Contac t Referred To Contact Referral ID Status Reason Start Date Expiration Date Visits Re quested Visits Authorized [id number] 1 1 Encounter Details Date Type Department Care Team (Late st Contact Info) Description 10/26/2019 Home Care Visit [facility] [address] [address] [address] [place] [address] Anat Villarreal, RN WOCN CONSULT Social History Tobacco Use Types Packs/Day Years Used Date Smoking Tobacco: Never Smokeless Tobacco: Never Alcohol Use Standard Drinks/Week Comments Not Currently 0 (1 standard drink = 0.6 oz pur e alcohol) PHQ-2 Answer Date Recorded PHQ-2 Score 0 08/30/2019 Comments No Sex and Gender Information Value Date Recorded Sex Assigned at Not on file Legal Sex Female 9:03 AM HISTORICAL RECORDS ADMINISTRATOR Gender Identity Female 02/08/2020 6:39 PM CDT Sexual Orientation Not on file documented as of this encounter Plan of Treatment Upcoming Encounters Date Type Department Care Team (Latest Contact Info) Description 07/13/2024 9:00 AM HISTORICAL RECORDS ADMINISTRATOR Hospital Encounter [facility] [address] [place] [address] Jaya Grier MD [address] [place] [address] 07/13/2024 9:00 AM HISTORICAL RECORDS ADMINISTRATOR - 07/13/2024 9:30 AM HISTORICAL RECORDS ADMINISTRATOR Surgery [facility] [address] [place] [address] Jaya Grier MD [address] [place] [address] ESOPHAGOGASTRODUODENOSCOPY Scheduled Procedures Name Priority Associated Diagnoses Date/Ti me ESOPHAGOGASTRODUODENOSCOPY Anemia, unspecified type Gastritis without bleeding, unspecified chronicity, unspecified gastritis type 07/13/2024 9:00 AM HISTORICAL RECORDS ADMINISTRATOR COLONOSCOPY Iron deficiency anemia due to chronic blood loss documented as of this encounter Visit Diagnoses Not on filedocumented in this encounter Home Health Visit - Care Plan Visit Details Visit Type -WOCN Consult Discipline -Prison Problems Problem Description Start Date [...] visit during episode of care Description: Home sign builder to measure vital signs during every home health visit during episode of care. Monitor patient's vital signs every home health visit No Interventions Intervention Associated Problem/Goal Status Variance Visit Notes Homebound Status Description: Patient is homebound due to unsteady gait, diabetis, neuropathy, risk for falls, open wound Problem:Homebound Status Goal:Patient recieves care at the most appropriate care setting Completed CWON recommendations only, visit not made Monitor Vital Signs Description: Monitor blood pressure, pulse, oxygen saturation, respirations Problem:Monitor patient's vital signs every home health visit Goal:Measure vital signs during every home health visit during episode of care Scheduled documented in this encounter Home Health Visit - Actions and Narratives Actions Recieved request for recomme ndations for wound from Barb Ochoa RN. Chart and photo reviewed. CWON sent recommendations to RN via outlook email. RN to contact MD for orders and order supplies as needed. documented in this encounter Care Teams Gas Meter Prover Relationship Specialty Start Date End Date Cherelle Corcoran MD PCP - General Family Medicine 08/30/19 documented as of this encounter
--- OUTSIDE RECORDS SUMMARY | 2024-07-04 04:25 | XMS_ITS | Encounter Summary ---
Author Organization [facility] Address [address] [place] [address] Phone Care Team Providers Care Licensed Staff Mft Name Role Phone Cherelle Corcoran MD Primary Care Pro vider Reason for Visit * Reason Comments Wound Care * Auth/Cert Specialty Diagnoses / Procedures Referred By Contac t Referred To Contact Referral ID Status Reason Start Date Expiration Date Visits Re quested Visits Authorized [id number] 1 1 Encounter Details Date Type Department Care Team (Latest Contact Info) Description 10/22/2019 11:30 AM CDT Home Care Visit [facility] [address] [address] [address] [place] [address] Barb Ochoa RN SN OASIS START OF CARE Social History [...] file Legal Sex Female 9:03 AM CUSTOM VAN CONVERTER Gender Identity Female 02/08/2020 6:39 PM CDT Sexual Orientation Not on file documented as of this encounter Last Filed Vital Signs Vital Sign Reading Time Taken Comments Blood Pressure 120/70 10/22/2019 12:31 PM CDT Pulse 74 10/22/2019 12:31 PM CDT Temperature 36.3 ??C (97.3 ??F) 10/22/2019 12:31 PM C DT Respiratory Rate 18 10/22/2019 12:31 PM CDT Oxygen Saturation 98% 10/22/2019 12:31 PM CDT Inhaled Oxygen Concentration - - Weight - - Height - - Body Mass Index - - documented in this encounter Plan of Treatment Upcoming Encounters Date Type Department Care Team (Latest Contact Info) Description 07/13/2024 9:00 AM CUSTOM VAN CONVERTER Hospital Encounter [facility] GI Lab [address] [place] [address] aJya Grier MD [facility] [facility] [address] [place] [address] 07/13/2024 9:00 AM CUSTOM VAN CONVERTER - 07/13/2024 9:30 AM CUSTOM VAN CONVERTER Surgery [facility] GI Lab [address] [place] [address] Jaya Grier MD [facility] [address] [place] [phone] ESOPHAGOGASTRODUODENOSCOPY Scheduled Procedures Name Priority Associated Diagnoses Date/Ti mi ESOPHAGOGASTRODUODENOSCOPY Anemia, unspecified type Gastritis without bleeding, unspecified chronicity, unspecified gastritis type 07/13/2024 9:00 AM CUSTOM VAN CONVERTER COLONOSCOPY Iron deficiency anemia due to chronic blood loss documented as of this encounter Visit Diagnoses Not on filedocumented in this encounter Home Health Visit - Care Plan Visit Details Visit Type -SN OASIS Start o f Care Discipline -Custodial Problems Problem Description Start Date Status Goals Interve ntions Homebound Status Disciplines: Custodial Patient's homebound status 10/23/2019 Active 1 goal linked to scheduled/documen bruno intervention 1 goal intervention scheduled/document ed in this visit Medications Disciplines: Custodial Management of home medications 10/23/2019 Active 1 [...] scheduled/document ed in this visit Depression Disciplines: Custodial Depression 10/23/2019 Active 1 goal linked to scheduled/documen bruno intervention 1 goal intervention scheduled/document ed in this visit Pain Disciplines: Custodial Alteration in comfort 10/23/2019 Active 1 goal linked to scheduled/documen bruno intervention 1 goal intervention scheduled/document ed in this visit Wound Risk of Infection Disciplines: Custodial Risk of infections related to wounds 10/23/2019 Active 1 goal linked to scheduled/documen bruno intervention 2 goal interventions scheduled/document ed in this visit Wound Education and Management Disciplines: Custodial 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 10/23/2019 Active 1 goal linked to scheduled/documen bruno intervention 2 goal interventions scheduled/document ed in this visit Wound Care Disciplines: Custodial Wound care needed 10/23/2019 Active 1 goal linked to scheduled/documen bruno intervention 2 goal interventions scheduled/document ed in this visit Disease Management - Diabetes Disciplines: Custodial Management of diabetes symptoms 10/23/2019 Active 1 goal linked to scheduled/documen bruno intervention 2 goal interventions scheduled/document ed in this visit Learning/Teachi ng Needs - Insulin Management Disciplines: Custodial Lack of knowledge related to insulin management 10/23/2019 Active 1 goal linked to scheduled/documen bruno intervention 1 goal intervention scheduled/document ed in this visit Learning/Teachi ng Needs - Diabetes Disciplines: Custodial Learning and teaching needs associated with diagnosis [...] visit during episode of care Description: Home fisher mussel to measure vital signs during every home health visit during episode of care. Monitor patient's vital signs every home health visit No Verbalize signs of infection Description: Verbalize signs of infection Infection Prevention No Demonstrate knowledge of depression Description: Demonstrate [...] setting Completed Patient is homebound due to see below. Instruct on Medication Management Description: Instruct patient/caregiver in medication administration, purpose, dosages, preparation, scheduling, side effects, food/drug interactions, storage, drug allergies, and potential complications. Problem:Medications Goal:Understand and follow medication therapy Completed went over medications. discussed reason for use, dosage and possible sdie effects. understanding expressed. . Monitor Vital Signs Description: Monitor blood [...] infection Completed instructed to report increase in pain, redness, swelling, drainage or odor to wound. understanding expressed. Assess depression Description: Assess depression. Problem:Depression Goal:Demonstrate knowledge of depression Completed pt states she has some depression but is not currently taking any medication. denies feelings of self harm. Instruct on pain management techniques Description: Instruct in pharmacologic and nonpharmacologic pain management techniques. Problem:Pain Goal:Report that pain has been reduced or controlled Completed instructed to report if pain is not relieved to an acceptable level. understanding expressed. Instruct on the signs and symptoms of infection Description: Assess wound with each visit for s/sx of infection Problem:Wound Risk of Infection Goal:Knowledgeable of infection Completed instructed to report redness, swelling, drainage, increase in pain or fever. understanding expressed. Instruct patient/family/caregiver on infection control and safe disposal of dressing materials Description: Instruct patient/caregiver on how to recognized signs and symptoms of infection and when to notify PRE SALES ARCHITECT and/or physician per Wound Education Booklet. Instruct patient/caregiver on infection control measures and how to prevent infections Problem:Wound Risk of Infection Goal:Knowledgeable of infection instructed to use good handwashing before and after wound care. understanding expressed. Demonstration of Wound Care Description: Patient/caregiver will complete a return demonstration on wound care to SN or PT. Observed return wound care on admission Problem:Wound Education and Management Goal:Knowledgeable on Woundcare Completed pt was able to do wound care without difficulty. Instruct patient on maintaining adequate nutrition and hydration Description: Instruct patient on maintaining adequate nutrition for wound healing. Instruct pt/cg on eating/offering a balanced diet. Instruct on adequate protein sources per Wound Education Booklet. Consult RD for chronic malnutrition, stage 3 or 4 pressure ulcer. Problem:Wound Education and Management Goal:Knowledgeable on Woundcare Completed instructed on proper diet and hydration for wound healing , bowel and bladder stauts. Skilled assessment wound Description: Full wound assessment including measurement weekly. Wound assessment each visit Problem:Wound Care Goal:Progression towards healing Completed Perform dressing change Description: Perform dressing change to be done by pt/cg/sn. rt great toe and rt 4th toe. wrap with guaze and secure with tape. to be done daily and prn for drainage or dislodgement. Problem:Wound Care Goal:Progression towards healing Completed pt performed wound care without difficulty. tolerated well. Assess Diabetes: Monitor for the presence of skin lesions on the lower extremity Description: Monitor for the presence of skin lesions on the lower extremity. Problem:Disease Management - Diabetes Goal:Verbalize prevention of infection Completed Educate on foot care Description: Educate patient/caregiver on proper foot care. Problem:Disease Management - Diabetes Goal:Verbalize prevention of infection Completed instructed to check feet daily and report any redness, cracked or open areas. understanding expressed. Instruct insulin administration Description: Instruct patient/caregiver in insulin purpose, side effects, possible complications, administration procedure, and schedule. Instruct on safe handling and storage of insulin and on safe disposal of needles and testing equipment. Problem:Learning/Tea dena Needs - Insulin Management Goal:Demonstrate ability to administer insulin Completed pt instructed to rotate sites for injection. instructed to make sure she eats before she takes insulin. instructed to dispose of needles in sharp proof containter. understanding expressed. . Instruct diet Description: Instruct on diabetic diet. instructed to limit sugars and carbs. Problem:Learning/Tea dena Needs - Diabetes Goal:Demonstrate adequate knowledge of Diabetes Completed instructed to watch sugars and carb intake. pt states she does not follow any specific diet. Instruct on signs and symptoms of hyperglycemia Description: Instruct patient/caregiver in signs/symptoms of hyperglycemia. Problem:Learning/Tea dena Needs - Diabetes Goal:Demonstrate adequate knowledge of Diabetes Completed instructed to report increease in thirst, increase in urination, change in mental status, dry mouth or headache or blurred visiton. understanding expressed. Instruct s/s of hypoglycemia Description: Instruct patient/caregiver on the signs and symptoms of hypoglycemia. Problem:Learning/Tea dena Needs - Diabetes Goal:Demonstrate adequate knowledge of Diabetes Completed instructed to report s/s of hypoglycemia including weakness, sweating, change in mental status, hunger or irritability. understanding expressed. Blood glucose monitoring Description: Patient/caregiver to perform blood sugar testing and record in log. Frequency of testing bid and prn for feelings of hypo or hyperglycemia Problem:Learning/Tea dena Needs - Diabetes Goal:Demonstrate adequate knowledge of Diabetes Completed pt instructed to check bs bid as ordered and record results. documented in this encounter Home Health Visit - Actions and Narratives Narratives [id number] - Ambulation/Locomotio n Documented Answer: 0 - Able to independently walk on even and uneven surfaces and negotiate stairs with or without railings (specifically: needs no human assistance or assistive device). Recommendation: 2 - Requires use of a two-handed device (for example, walker or crutches) to walk alone on a level surface and/or requires human supervision or assistance to negotiate stairs or steps or uneven surfaces. Patient with wound to right foot and limited endurnace, may require supervision/CGA. Please review [id number] - Comorbidities and Co-existing Conditions Recommendation: 2 - Diabetes Mellitus 10/27/19 -SUZY Garcia Chart review and recommendations completed by:RAGHAVENDRA Warren documented in this encounter Care Teams Licensed Staff Mft Relationship Specialty Start Date End Date Cherelle Corcoran MD PCP - General Family Medicine 08/30/19 documented as of this encounter
--- OUTSIDE RECORDS SUMMARY | 2024-07-04 04:25 | XMS_ITS | Encounter Summary ---
Author Organization [facility] Address [address] [place] [address] Care Team Providers Care Shroudman Name Role Phone Cherelle Corcoran MD Primary Care Pro vider Encounter Details Date Type Department Care Team (Late st Contact Info) Description 10/27/2019 Orders Only [facility] Primary Care [address] [place] [address] Cherelle Corcoran MD [facility] [address] [place] [address] Diabetic ulcer of toe of right foot associated with type 2 diabetes mellitus, with necrosis of bone (CMS/HCC) (Primary Dx) Social History Tobacco Use [...] file Legal Sex Female 9:03 AM PROFESSIONAL BENEFITS SALES CONSULTANT Gender Identity Female 02/08/2020 6:39 PM CDT Sexual Orientation Not on file documented as of this encounter Ordered Prescriptions Prescription Sig Dispense Quantity Refills Last Filled Start Date End Date amino acids-protein hydr-fiber 15-90 gram-kcal/30 mL liquidIndications: Diabetic ulcer of toe of right foot associated with type 2 diabetes mellitus, with necrosis of bone (HCC) Drink 30ml daily 887 mL 10/27/2019 0 collagenase (SANTYL) ointmentIndication s:Diabetic ulcer of toe of right foot associated with type 2 diabetes mellitus, with necrosis of bone (HCC) Apply topically daily 30 g 10/27/2019 0 documented in this encounter Plan of Treatment Upcoming Encounters Date Type Department Care Team (Latest Contact Info) Description 07/13/2024 9:00 AM PROFESSIONAL BENEFITS SALES CONSULTANT Hospital Encounter [facility] GI [facility] [address] [place] [address] Jaya Grier MD [address] [place] [address] [address] [place] [phone] 07/13/2024 9:00 AM PROFESSIONAL BENEFITS SALES CONSULTANT - 07/13/2024 9:30 AM PROFESSIONAL BENEFITS SALES CONSULTANT Surgery [facility] [address] [place] [address] Jaya Grier MD [address] [place] [address] [address] [place] [id number] ESOPHAGOGASTRODUODENOSCOPY Scheduled Procedures Name Priority Associated Diagnoses Date/Ti me ESOPHAGOGASTRODUODENOSCOPY Anemia, unspecified type Gastritis without bleeding, unspecified chronicity, unspecified gastritis type 07/13/2024 9:00 AM PROFESSIONAL BENEFITS SALES CONSULTANT COLONOSCOPY Iron deficiency anemia due to chronic blood loss documented as of this encounter Visit Diagnoses Diagnosis Diabetic ulcer of toe of right foot associated with type 2 diabetes mellitus, with necrosis of bone (HCC)- Primary Anemia, unspecified type Gastritis without bleeding, unspecified chronicity, unspecified gastritis type documented in this encounter Care Teams Shroudman Relationship Specialty Start Date End Date Cherelle Corcoran MD PCP - General Family Medicine 08/30/19 documented as of this encounter
--- OUTSIDE RECORDS SUMMARY | 2024-07-04 04:25 | XMS_ITS | Encounter Summary ---
Author Organization [facility] Address [address] [place] [address] Care Team Providers Care Deckhand Engineer Name Role Phone Cherelle Corcoran MD Primary Care Pro vider Encounter Details Date Type Department Care Team (Late st Contact Info) Description 09/29/[address] 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 No / Unsure 09/15/2019 2:02 PM CDT documented as of this encounter Plan of Treatment Upcoming Encounters Date Type Department Care Team (Latest Contact Info) Description 07/13/2024 9:00 AM CONSUMER LOAN UNDERWRITER Hospital Encounter [facility] GI Lab [address] [place] [address] Jaya Grier MD [facility] [facility] [address] [place] [phone] 07/13/2024 9:00 AM CONSUMER LOAN UNDERWRITER - 07/13/2024 9:30 AM CONSUMER LOAN UNDERWRITER Surgery [facility] GI Lab [address] [place] [address] Jaya Grier MD [address] [place] [id number] ESOPHAGOGASTRODUODENOSCOPY Scheduled Procedures Name Priority Associated Diagnoses Date/Ti ia ESOPHAGOGASTRODUODENOSCOPY Anemia, unspecified type Gastritis without bleeding, unspecified chronicity, unspecified gastritis type 07/13/2024 9:00 AM CONSUMER LOAN UNDERWRITER COLONOSCOPY Iron deficiency anemia due to chronic blood loss documented as of this encounter Visit Diagnoses Diagnosis Osteomyelitis of right foot, unspecified type (HCC)- Primary Anemia, unspecified type Gastritis without bleeding, unspecified chronicity, unspecified gastritis type documented in this encounter Care Teams Deckhand Engineer Relationship Specialty Start Date End Date Cherelle Corcoran MD PCP - General Family Medicine 08/30/19 documented as of this encounter
--- OUTSIDE RECORDS SUMMARY | 2024-07-04 04:25 | XMS_ITS | Encounter Summary ---
Author Organization [facility] Address [address] [place] [address] Phone Care Team Providers Care Head Nurse Name Role Phone Cherelle Corcoran MD Primary Care Pro vider Reason for Visit * Reason Comments Wound Care * Auth/Cert Specialty Diagnoses / Procedures Referred By Contac t Referred To Contact Referral ID Status Reason Start Date Expiration Date Visits Re quested Visits Authorized [id number] 1 1 Encounter Details Date Type Department Care Team (Late st Contact Info) Description 10/25/2019 10:30 AM CDT Home Care Visit [facility] [address] [address] [address] [place] [address] Barb Ochoa, ALIREZA SN HOME VISIT Social [...] file Legal Sex Female 9:03 AM CONTINUOUS IMPROVEMENT MANAGER Gender Identity Female 02/08/2020 6:39 PM CDT Sexual Orientation Not on file documented as of this encounter Last Filed Vital Signs Vital Sign Reading Time Taken Comments Blood Pressure 120/70 10/25/2019 11:55 AM CDT Pulse 70 10/25/2019 11:55 AM CDT Temperature 36.6 ??C (97.8 ??F) 10/25/2019 11:55 AM C DT Respiratory Rate 18 10/25/2019 11:55 AM CDT Oxygen Saturation 99% 10/25/2019 11:55 AM CDT Inhaled Oxygen Concentration - - Weight - - Height - - Body Mass Index - - documented in this encounter Plan of Treatment Upcoming Encounters Date Type Department Care Team (Latest Contact Info) Description 07/13/2024 9:00 AM CONTINUOUS IMPROVEMENT MANAGER Hospital Encounter [facility] [address] [place] [address] Jaya Grier MD [facility] [address] [place] [phone] 07/13/2024 9:00 AM CONTINUOUS IMPROVEMENT MANAGER - 07/13/2024 9:30 AM CONTINUOUS IMPROVEMENT MANAGER Surgery [facility] [address] [place] [address] Jaya Grier MD [address] [facility] [address] [place] [id number] ESOPHAGOGASTRODUODENOSCOPY Scheduled Procedures Name Priority Associated Diagnoses Date/Ti nd ESOPHAGOGASTRODUODENOSCOPY Anemia, unspecified type Gastritis without bleeding, unspecified chronicity, unspecified gastritis type 07/13/2024 9:00 AM CONTINUOUS IMPROVEMENT MANAGER COLONOSCOPY Iron deficiency anemia due to chronic blood loss documented as of this encounter Visit Diagnoses Not on filedocumented in this encounter Home Health Visit - Care Plan Visit Details Visit Type -SN Home Visit Discipline -Shelter Problems Problem Description Start Date Status Goals Interve ntions Homebound Status Disciplines: Shelter Patient's homebound status 10/23/2019 Active 1 goal linked to scheduled/documen bruno intervention 1 goal intervention scheduled/document ed in this visit Monitor patient's vital signs every home health visit Disciplines: Shelter Monitor patient's vital signs every home health visit. 10/23/2019 Active 1 goal linked to scheduled/documen bruno intervention 1 goal intervention scheduled/document ed in this visit Fall Precautions/Saf ety Concerns Disciplines: Shelter Alteration in safety 10/23/2019 Active 1 goal linked to scheduled/documen bruno intervention 1 goal intervention scheduled/document ed in this visit Wound Risk of Infection Disciplines: Shelter Risk of infections related to wounds 10/23/2019 Active 1 goal linked to scheduled/documen bruno intervention 1 goal intervention scheduled/document ed in this visit Wound Education and Management Disciplines: Shelter 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 10/23/2019 Active 1 goal linked to scheduled/documen bruno intervention 2 goal interventions scheduled/document ed in this visit Wound Care Disciplines: Shelter Wound care needed 10/23/2019 Active 1 goal linked to scheduled/documen bruno intervention 2 goal interventions scheduled/document ed in this visit Disease Management - Diabetes Disciplines: Shelter Management of diabetes symptoms 10/23/2019 Active 1 goal linked to scheduled/documen bruno intervention 2 goal interventions scheduled/document ed in this visit Learning/Teachi ng Needs - Diabetes Disciplines: Shelter Learning and teaching needs associated with diagnosis [...] visit during episode of care Description: Home executive director to measure vital signs during every home [...] Completed Patient is homebound due to unsteady gait , diabetis, neuropathy and risk for falls Monitor Vital Signs Description: Monitor blood pressure, pulse, oxygen saturation, respirations Problem:Monitor patient's vital signs every home health visit Goal:Measure vital signs during every home health visit during episode of care Completed [place] Fall Precautions Description: Assess patient safety Problem:Fall Precautions/Safety Concerns Goal:Demonstrate use of safety precautions Completed instructed pt to use walker or cane when up if she feels lightheaded or dizzy. understanding expressed. states that she usually uses cane in the home Instruct on the signs and symptoms of infection Description: Assess wound with each visit for s/sx of infection Problem:Wound Risk of Infection Goal:Knowledgeable of infection Completed instructed to report increase in redness, new open areas, increase in drainage or drainage that is yellow or green in color, increase in pain, or fever of 100.5 or higher. understanding expressed but pt has memory problems and will need repeated instructions. Demonstration of Wound Care Description: Patient/caregiver will complete a return demonstration on wound care to SN or PT. Observed return wound care on admission Problem:Wound Education and Management Goal:Knowledgeable on Woundcare Completed pt perfomred wound care with assist of sn. Instruct patient on maintaining adequate nutrition and hydration Description: Instruct patient on maintaining adequate nutrition for wound healing. Instruct pt/cg on eating/offering a balanced diet. Instruct on adequate protein sources per Wound Education Booklet. Consult RD for chronic malnutrition, stage 3 or 4 pressure ulcer. Problem:Wound Education and Management Goal:Knowledgeable on Woundcare Completed instructed on proper diet and hydration for wound healing , and urinary and bowel status. understanding expressed. Skilled assessment wound Description: Full [...] dislodgement. Problem:Wound Care Goal:Progression towards healing Completed dressing change as per plan of care. pt tolerated [...] of infection Completed instructed to inspect feet daily and report any new red or open areas immediately. Instruct diet Description: Instruct on diabetic diet. instructed to limit sugars and carbs. Problem:Learning/Teac jasiel Needs - Diabetes Goal:Demonstrate adequate knowledge of Diabetes Completed instructed on diabeitc diet. instructed to limit sugarary food and carbs. understanding expressed. Blood glucose monitoring Description: Patient/caregiver to perform blood sugar testing and record in log. Frequency of testing bid and prn for feelings of hypo or hyperglycemia Problem:Learning/Teac jasiel Needs - Diabetes Goal:Demonstrate adequate knowledge of Diabetes Completed pt checked bs without difficulty. instructed to check before breakfast and before bed and record results. understanding expressed. Teach diabetes Description: Provide patient with diabetic education booklet and instruct on material. Problem:Learning/Teac jasiel Needs - Diabetes Goal:Demonstrate adequate knowledge of Diabetes Completed discussed s/s of hypo and hyperglycemia, bs testing as ordered, diet, and diabetic complications including neuropathy. pt is forgetful and will need repeated instructions documented in this encounter Home Health Visit - Actions and Narratives Actions call to pt's daughter when p t didnt answer the phone. she states that she would like to be at the next visit if possible due to pt having some problems with her memory. pt has diagnosis of schizophrenia but does not take medication. daughter gives medication reminders . pt takes bs and insulin by herself with reminders. documented in this encounter Care Teams Head Nurse Relationship Specialty Start Date End Date Cherelle Corcoran MD PCP - General Family Medicine 08/30/19 documented as of this encounter
--- OUTSIDE RECORDS SUMMARY | 2024-07-04 04:25 | XMS_ITS | Encounter Summary ---
Author Organization [facility] Facility Care Team Providers Care General Distillery Worker Name Role Phone Cherelle Corcoran MD Primary Care Pro vider Encounter Details Date Type Department Care Team (Latest Contact Info) Description 09/01/2019 Travel Social History Tobacco Use Types Packs/Day Years Used Date Smoking Tobacco: Never Smokeless Tobacco: Never Alcohol Use Standard Drinks/Week Comments Not Currently 0 (1 standard drink = 0.6 oz pur e alcohol) PHQ-2 Answer Date Recorded PHQ-2 Score 0 08/30/2019 Comments No Sex and Gender Information Value Date Recorded Sex Assigned at Not on file Legal Sex Female 9:03 AM PROJECT STRUCTURAL ENGINEER Gender Identity Female 02/08/2020 6:39 PM CDT Sexual Orientation Not on file COVID-19 Exposure Response Date Recorded In the last month, have you been in contact with someone who was confirmed or suspected to have Coronavirus / COVID-19? No / Unsure 09/01/2019 2:07 PM CDT documented as of this encounter Plan of Treatment Upcoming Encounters Date Type Department Care Team (Latest Contact Info) Description 07/13/2024 9:00 AM PROJECT STRUCTURAL ENGINEER Hospital Encounter [facility] [address] [place] [address] Jaya Grier MD [facility] [address] 07/13/2024 9:00 AM PROJECT STRUCTURAL ENGINEER - 07/13/2024 9:30 AM PROJECT STRUCTURAL ENGINEER Surgery [facility] [address] [place] [address] Jaya Grier MD [address] [address] ESOPHAGOGASTRODUODENOSCOPY Scheduled Procedures Name Priority Associated Diagnoses Date/Ti me ESOPHAGOGASTRODUODENOSCOPY Anemia, unspecified type Gastritis without bleeding, unspecified chronicity, unspecified gastritis type 07/13/2024 9:00 AM PROJECT STRUCTURAL ENGINEER COLONOSCOPY Iron deficiency anemia due to chronic blood loss documented as of this encounter Visit Diagnoses Not on filedocumented in this encounter Care Teams General Distillery Worker Relationship Specialty Start Date End Date Cherelle Corcoran MD PCP - General Family Medicine 08/30/19 documented as of this encounter
--- OUTSIDE RECORDS SUMMARY | 2024-07-04 04:25 | XMS_ITS | Encounter Summary ---
Author Organization [facility] Facility Care Team Providers Care Supervising Law Enforcement Analyst Name Role Phone Cherelle Corcoran MD Primary Care Pro vider Encounter Details Date Type Department Care Team (Latest Contact Info) Description 08/30/2019 Travel Social History Tobacco Use Types Packs/Day Years Used Date Smoking Tobacco: Never Smokeless Tobacco: Never Alcohol Use Standard Drinks/Week Comments Not Currently 0 (1 standard drink = 0.6 oz pur e alcohol) PHQ-2 Answer Date Recorded PHQ-2 Score 0 08/30/2019 Comments No Sex and Gender Information Value Date Recorded Sex Assigned at Not on file Legal Sex Female 9:03 AM ELEVATOR REPAIR MECHANIC Gender Identity Female 02/08/2020 6:39 PM CDT Sexual Orientation Not on file documented as of this encounter Plan of Treatment Upcoming Encounters Date Type Department Care Team (Latest Contact Info) Description 07/13/2024 9:00 AM ELEVATOR REPAIR MECHANIC Hospital Encounter [facility] GI Lab [address] [place] [address] Jaya Grier MD [address] [place] [phone] 07/13/2024 9:00 AM ELEVATOR REPAIR MECHANIC - 07/13/2024 9:30 AM ELEVATOR REPAIR MECHANIC Surgery [facility] Lab [address] [place] [address] Jaya Grier MD [address] [facility] [place] [address] ESOPHAGOGASTRODUODENOSCOPY Scheduled Procedures Name Priority Associated Diagnoses Date/Ti me ESOPHAGOGASTRODUODENOSCOPY Anemia, unspecified type Gastritis without bleeding, unspecified chronicity, unspecified gastritis type 07/13/2024 9:00 AM ELEVATOR REPAIR MECHANIC COLONOSCOPY Iron deficiency anemia due to chronic blood loss documented as of this encounter Visit Diagnoses Not on filedocumented in this encounter Care Teams Supervising Law Enforcement Analyst Relationship Specialty Start Date End Date Cherelle Corcoran MD PCP - General Family Medicine 08/30/19 documented as of this encounter
--- OUTSIDE RECORDS SUMMARY | 2024-07-04 04:25 | XMS_ITS | Encounter Summary ---
Author Organization [facility] Home Care Servic es Address [address] [place] [address] Phone Care Team Providers Care City Auditor Name Role Phone Cherelle Corcoran MD Primary Care Pro vider Reason for Visit * Auth/Cert Specialty Diagnoses / Procedures Referred By Contac t Referred To Contact Referral ID Status Reason Start Date Expiration Date Visits Re quested Visits Authorized [id number] 1 1 Encounter Details Date Type Department Care Team (Late st Contact Info) Description 10/22/2019 Home Care Visit [facility] Home Health [address] [address] [address] [place], [place] [address] Barb Ochoa RN TRAVEL SCREENING CASE COMMUNICATION [...] on file Legal Sex Female 9:03 AM SYSTEMS PLANNER Gender Identity Female 02/08/2020 6:39 PM CDT Sexual Orientation Not on file documented as of this encounter Plan of Treatment Upcoming Encounters Date Type Department Care Team (Latest Contact Info) Description 07/13/2024 9:00 AM SYSTEMS PLANNER Hospital Encounter [facility] GI Lab [address] [place] [address] Jaya Grier MD [address] [place] [address] [address] [place] [phone] 07/13/2024 9:00 AM SYSTEMS PLANNER - 07/13/2024 9:30 AM SYSTEMS PLANNER Surgery [facility] [address] [place] [address] Jaya Grier MD [facility] [address] [place] [address] ESOPHAGOGASTRODUODENOSCOPY Scheduled Procedures Name Priority Associated Diagnoses Date/Ti me ESOPHAGOGASTRODUODENOSCOPY Anemia, unspecified type Gastritis without bleeding, unspecified chronicity, unspecified gastritis type 07/13/2024 9:00 AM SYSTEMS PLANNER COLONOSCOPY Iron deficiency anemia due to chronic blood loss documented as of this encounter Visit Diagnoses Not on filedocumented in this encounter Care Teams City Auditor Relationship Specialty Start Date End Date Cherelle Corcoran MD PCP - General Family Medicine 08/30/19 documented as of this encounter
--- OUTSIDE RECORDS SUMMARY | 2024-07-04 04:25 | XMS_ITS | Encounter Summary ---
Author Organization [facility] Address [address] [facility] [address] [place] [address] Care Team Providers Care Licensed Chemical Spray Technician Name Role Phone Duane Callahan MD Primary Care Pro vider Reason for Visit * Reason Comments Wound Check right foot, about e same Numbness both feet Encounter Details Date Type Department Care Team (Latest Contact Info) Description 10/21/2019 10:00 AM CDT Office Visit [facility] Primary Care [address] [place] [phone] Duane Callahan MD [address] [place] [phone] Uncontrolled type 2 diabetes mellitus with hyperglycemia (CMS/HCC) (Primary Dx); Diabetic ulcer of toe of right foot associated with type 2 diabetes mellitus, with necrosis of bone (CMS/HCC); Other diabetic neurological complication associated with type 2 diabetes mellitus (CMS/HCC); Itching Social History Tobacco Use Types Packs/Day Years Used Date Smoking Tobacco: Never Smokeless Tobacco: Never Alcohol Use Standard Drinks/Week Comments Not Currently 0 (1 standard drink = 0.6 oz pur e alcohol) PHQ-2 Answer Date Recorded PHQ-2 Score 0 08/30/2019 Comments No Sex and Gender Information Value Date Recorded Sex Assigned at Not on file Legal Sex Female 9:03 AM DAIRY FEED SALES CONSULTANT Gender Identity Female 02/08/2020 6:39 PM CDT Sexual Orientation Not on file documented as of this encounter Last Filed Vital Signs Vital Sign Reading Time Taken Comments Blood Pressure 116/58 10/21/2019 10:24 AM CDT Pulse 98 10/21/2019 10:24 AM CDT Temperature 36.9 ??C (98.4 ??F) 10/21/2019 10:24 AM C DT Respiratory Rate 16 10/21/2019 10:24 AM CDT Oxygen Saturation 97% 10/21/2019 10:24 AM CDT Inhaled Oxygen Concentration - - Weight 56.7 kg (125 lb) 10/21/2019 10:24 AM CDT Height 157.5 cm (5' 2 ) 10/21/2019 10:24 AM CDT Body Mass Index 22.86 10/21/2019 10:24 AM CDT documented in this encounter Patient Instructions * Patient Instructions* Duane Callahan MD - 10/21/2019 10:00 AM CDT Take benadryl, zyrtec or reyna for itching. If not resolved can add pepcid. If still itching please let me know. If having shortness of breath or swelling of lips or mouth should be seen in ED right away. Increase basaglar to 27 units nightly. Take 400mg gabapentin three times a day (100+300mg tablets) documented in this encounter Ordered Prescriptions Prescription Sig Dispense Quantity Refills Last Filled Start Date End Date gabapentin (NEURONTIN) 300 mg capsule Take 1 capsule (300 mg total) by mouth 3 (three) times a day 270 tablet 1 10/21/2019 0 gabapentin (NEURONTIN) 600 mg tablet Take 1 tablet (600 mg total) by mouth 3 (three) times a day 270 capsule 1 10/21/2019 0 Basaglar KwikPen U-100 Insulin 100 unit/mL (3 mL) insulin penIndications:Unco ntrolled type 2 diabetes mellitus with hyperglycemia (HCC) Inject 27 Units under the skin nightly 3 pen 1 10/21/2019 0 documented in this encounter Progress Notes * Duane Callahan MD - 10/21/2019 10:00 AM CDT Images from the original note were not included. Assessment/Plan: Assessment/Plan Diagnoses and all orders for this visit: Uncontrolled type 2 diabetes mellitus with hyperglycemia ([facility]/HCC) (Primary) Assessment & Plan: Increase basaglar to 27 units nightly Continue 1.2mg victoza daily Follow up via phone or portal early next week for further insulin titration Orders: - Basaglar KwikPen U-100 Insulin 100 unit/mL (3 mL) insulin pen; Inject 27 Units under the skin nightly Diabetic ulcer of toe of right foot associated with type 2 diabetes mellitus, with necrosis of bone(CMS/HCC) Assessment & Plan: Following with Dr. Walsh On bactrim daily Orders: - Ambulatory referral to Home Health; Future Other diabetic neurological complication associated with type 2 diabetes mellitus ([facility]/HCC) Assessment & Plan: Increase gabapentin to 400mg TID, patient desires to use rest of previous 100mg pills with 300mg pills Can increase further to 600mg TID if persistently bothersome Itching Comments: Acute, unclear etiology, no rash, sob, or swelling Advise anti-histamines, can also add h2 roz If persistent despite above would consider steroids Other orders - gabapentin (NEURONTIN) 300 mg capsule; Take 1 capsule (300 mg total) by mouth 3 (three) times a day F/u pending blood glucose or sooner as needed. Strict return/ED precautions discussed. Subjective: Barbara Chakraborty is a 68 y.o. female here for follow up diabetes mellitus HPI Chief Complaint Patient presents with ??? Wound Check right foot, about the same ??? Numbness both feet Diabetes mellitus Fasting in 230's Neuropathy Persistent numbness in bilateral feet and hands despite increasing gabapentin, bothersome Ulcer Seeing Dr. Walsh Had MRI showing osteo On bactrim daily Wants home health nurse as daughter gone 8h/day Pruritis Started having itching today Denies mouth swelling or shortness of breath No rash hasnt had this happen before Denies new medications Pro-stat sugar free Santyl cream Review of Systems HENT: Negative for trouble swallowing. Respiratory: Negative for shortness of breath. Gastrointestinal: Positive for abdominal pain and diarrhea (earlier in the week, now resolved). Skin: Negative for rash. pruritis Neurological: Positive for numbness. Objective: Vital signs were reviewed. Vitals: 10/21/19 1024 BP: 116/58 BP Location: Left arm Patient Position: Sitting Pulse: 98 Resp: 16 Temp: 36.9 ??C (98.4 ??F) SpO2: 97% Weight: 56.7 kg (125 lb) Height: 157.5 [...] of plantar and medial R great toe MSK/Neuro: symmetric limb movement Psych: alert and oriented to person/place Duane Callahan MD documented in this encounter Miscellaneous Notes * Assessment & Plan Note - Duane Callahan MD - 10/21/2019 11:00 AM CDTAssociated Problem(s): Diabetic neuropathy (HCC) (Resolved 05/16/2024) Increase gabapentin to 400mg TID, patient desires to use rest of previous 100mg pills with 300mg pills Can increase further to 600mg TID if persistently bothersome * Assessment & Plan Note - Duane Callahan MD - 10/21/2019 11:00 AM CDTAssociated Problem(s): Type 2 diabetes mellitus with diabetic neuropathy, with long-term current use of insulin (HCC) Increase basaglar to 27 units nightly Continue 1.2mg victoza daily Follow up via phone or portal early next week for further insulin titration * Assessment & Plan Note - Duane Callahan MD - 10/21/2019 10:59 AM CDTAssociated Problem(s): Ulcer of toe of right foot, with fat layer exposed (HCC) (Resolved 08/28/2020) Following with Dr. Walsh On bactrim daily * Addendum Note - Duane Callahan MD - 10/21/2019 10:00 AM CDT Addended by: DUANE CALLAHAN on: 10/21/2019 11:23 AM Modules accepted: Orders documented in this encounter Plan of Treatment Upcoming Encounters Date Type Department Care Team (Latest Contact Info) Description 07/13/2024 9:00 AM DAIRY FEED SALES CONSULTANT Hospital Encounter [facility] [address] [place] [address] Jaya Grier MD [address] [place] [address] [address] [place] [phone] 07/13/2024 9:00 AM DAIRY FEED SALES CONSULTANT - 07/13/2024 9:30 AM DAIRY FEED SALES CONSULTANT Surgery [facility] [address] [place] [address] Jaya Grier MD [address] [place] [address] [address] [place] [phone] ESOPHAGOGASTRODUODENOSCOPY Scheduled Procedures Name Priority Associated Diagnoses Date/Ti nv ESOPHAGOGASTRODUODENOSCOPY Anemia, unspecified type Gastritis without bleeding, unspecified chronicity, unspecified gastritis type 07/13/2024 9:00 AM DAIRY FEED SALES CONSULTANT COLONOSCOPY Iron deficiency anemia due to chronic blood loss documented as of this encounter Visit Diagnoses Diagnosis Uncontrolled type 2 diabetes mellitus with hyperglycemia (HCC)- Primary Diabetic ulcer of toe of right foot associated with type 2 diabetes mellitus, with necrosis of bone (HCC) Other diabetic neurological complication associated with type 2 diabetes mellitus (HCC) Itching Unspecified pruritic disorder Anemia, unspecified type Gastritis without bleeding, unspecified chronicity, unspecified gastritis type documented in this encounter Discontinued Medications Medication Sig Discontinue Reason Start Date End Da te amoxicillin-clavulanate (Augmentin) 875-125 mg per tablet Take 1 tablet by mouth 2 (two) times a day 09/01/2019 10/21/2019 Basaglar KwikPen U-100 Insulin 100 unit/mL (3 mL) insulin pen 24 Units Reorder 06/30/2019 10/21/2019 gabapentin (NEURONTIN) 300 mg capsule Take 1 capsule (300 mg total) by mouth 3 (three) times a day Reorder 09/06/2019 10/21/2019 gabapentin (NEURONTIN) 600 mg tablet Take 1 tablet (600 mg total) by mouth 3 (three) times a day Reorder 10/21/2019 10/21/2019 documented as of this encounter Care Teams Licensed Chemical Spray Technician Relationship Specialty Start Date End Date Duane Callahan MD PCP - General Family Medicine 08/30/19 documented as of this encounter
--- OUTSIDE RECORDS SUMMARY | 2024-07-04 04:25 | XMS_ITS | Encounter Summary ---
Author Organization [facility] Address [address] [place] [address] Care Team Providers Care Explosives Detonator Name Role Phone Cherelle Corcoran MD Primary Care Pro vider Reason for Referral * Consultation (Routine) - Closed Specialty Diagnoses / Procedures Referred By Contac t Referred To Contact Vascular Surgery Diagnoses Uncontrolled type 2 diabetes mellitus with hyperglycemia (HCC) Diabetic ulcer of toe of right foot associated with type 2 diabetes mellitus, with necrosis of bone (HCC) Cherelle Corcoran MD Phone: tel: fax: Guy Walsh MD [facility] [address] [address] Phone: tel: fax: Referral ID Status Reason Start Date Expiration Date V isits Requested Visits Authorized [id number] Closed Specialty Services Required 08/30/2019 03/10/2021 1 1 Question Answer Please select the performing region: [facility] [[id number]] Please select the performing department: [facility] [[id number]] # of visits: 1 Reason for Visit * Reason Comments Wound Check Pt was seen in ER th is thursday at [facility] for right great toe. Was told wound care would need to be done and needing referral from PCP. Establish Care Pt i office to [facility]. Needing to restart medication for diabetes and schizophrenia. Encounter Details Date Type Department Care Team (Latest Contact Info) Description 08/30/2019 2:30 PM CDT Office Visit [facility] Primary Care [address] [facility] [address] [place] [address] Cherelle Corcoran MD [facility]4 [facility] [address] [place] [address] Schizophrenia, unspecified type (CMS/HCC) (Primary Dx); Uncontrolled type 2 diabetes mellitus with hyperglycemia (CMS/HCC); Diabetic ulcer of toe of right foot [...] on file Legal Sex Female 9:03 AM OPERATING ROOM ASSISTANT Gender Identity Female 02/08/2020 6:39 PM CDT Sexual Orientation Not on file documented as of this encounter Last Filed Vital Signs Vital Sign Reading Time Taken Comments Blood Pressure 128/72 08/30/2019 2:50 PM CDT Pulse 78 08/30/2019 2:50 PM CDT Temperature 36.9 ??C (98.4 ??F) 08/30/2019 2:50 PM CD T Respiratory Rate 16 08/30/2019 2:50 PM CDT Oxygen Saturation 98% 08/30/2019 2:50 PM CDT Inhaled Oxygen Concentration - - Weight 56.7 kg (125 lb) 08/30/2019 2:50 PM CDT Height 157.5 cm (5' 2 ) 08/30/2019 2:50 PM CDT Body Mass Index 22.86 08/30/2019 2:50 PM CDT documented in this encounter Ordered Prescriptions Prescription Sig Dispense Quantity Refills Last Filled Start Date End Date Victoza 2-Vivek 0.6 mg/0.1 mL (18 mg/3 mL) injectionIndication s:Uncontrolled type 2 diabetes mellitus with hyperglycemia (HCC) Inject 0.6 mg under the skin daily 3 mL 1 08/30/2019 0 documented in this encounter Progress Notes * Cherelle Corcoran MD - 08/30/2019 2:30 PM CDT Images from the original note were not included. Assessment/Plan: Assessment/Plan Diagnoses and all orders for this visit: Schizophrenia, unspecified type (CMS/HCC) (Primary) Assessment & Plan: Referral to psychiatry Patient and daughter to determine previous medications Orders: - Ambulatory referral to Psychiatry; Future Uncontrolled type 2 diabetes mellitus with hyperglycemia (CMS/HCC) Assessment & Plan: Just restarted victoza Continue basaglar 24 units daily, may need to increase if victoza not improving blood glucose Follow up 1 week for reassessment Orders: - Victoza 2-Vivek 0.6 mg/0.1 mL (18 mg/3 mL) injection; Inject 0.6 mg under the skin daily - Ambulatory referral to Vascular Surgery; Future Diabetic ulcer of toe of right foot associated with type 2 diabetes mellitus, with necrosis of bone(CMS/HCC) Assessment & Plan: Concern for osteomyelitis Urgent referral to vascular Orders: - Ambulatory referral to Vascular Surgery; Future Other diabetic neurological complication associated with type 2 diabetes mellitus (CMS/HCC) Assessment & Plan: Uncontrolled, but just restarted gabapentin Patient to confirm dosing and consider increasing F/u 1 week or sooner as needed. Strict return/ED precautions discussed. Subjective: Barbara Chakraborty is a 68 y.o. female new patient here for follow up foot wound HPI Chief Complaint Patient presents with ??? Wound Check Pt was seen in ER this thursday at [facility] for right great toe. Was told wound care would need to be done and needing referral from PCP. ??? Establish Care Pt i office to establish care. Needing to restart medication for diabetes and schizophrenia. Wound Present x1 month Seen at [facility] and told that bone was decomposing, but didn't know if that was infection or justher toe Sent home on 1 week of antibiotics Patient notes pain 01/29 Has been cleaning it with anti-bacterial soap and applying wet dressing Does seem to be improving since starting the augmentin Diabetes mellitus Has been out of victoza for 2-3 weeks At urgent care blood sugar was 438 Using 0.6 victoza daily, just restarted yesterday after being out for 3 weeks, and 24 units basaglar nightly Didn't have machine for awhile, but just got a new one so can check blood glucose again Neuropathy Just started/restarted gabapentin Still having pain History of schizophrenia Thinks she was seeing a Dr. Smith in [place], but daughter doesn't think that is correct Neither know what medications she has been on for it previously Moved in with daughter one month ago Review of Systems Constitutional: Positive for fatigue. Negative for chills and fever. Respiratory: Negative for shortness of breath. Cardiovascular: Negative for chest pain. Gastrointestinal: Negative for nausea. Genitourinary: Negative for dysuria. Musculoskeletal: Positive for arthralgias. Skin: Positive for wound. Allergic/Immunologic: Positive for immunocompromised state. Neurological: Negative for light-headedness. Psychiatric/Behavioral: Positive for decreased concentration. Negative for self- injury and suicidalideas. Objective: Vital signs were reviewed. Vitals: 08/30/19 1450 BP: 128/72 BP Location: Left arm Patient Position: Sitting Pulse: 78 Resp: 16 Temp: 36.9 ??C (98.4 ??F) TempSrc: Oral SpO2: 98% Weight: 56.7 kg (125 lb) Height: 157.5 cm (5' 2 ) Physical Exam Gen: NAD, comfortable, appears as stated age Eyes: no conjunctival injection, EOMI ENMT: external ears symmetric, nares patent CV: Regular rate Pulm: no increased work of breathing Skin: 3 separate ulcerations on plantar R great toe with erythema at metacarpal phalangeal joint and diffuse foot swelling, warm and dry MSK/Neuro: symmetric limb movement Cherelle Corcoran MD documented in this encounter Miscellaneous Notes * Assessment & Plan Note - Cherelle Corcoran MD - 08/30/2019 5:20 PM CDTAssociated Problem(s): Type 2 diabetes mellitus with diabetic neuropathy, with long-term current use of insulin (HCC) Just restarted victoza Continue basaglar 24 units daily, may need to increase if victoza not improving blood glucose Follow up 1 week for reassessment * Assessment & Plan Note - Cherelle Corcoran MD - 08/30/2019 5:20 PM CDTAssociated Problem(s): Ulcer of toe of right foot, with fat layer exposed (HCC) (Resolved 08/28/2020) Concern for osteomyelitis Urgent referral to vascular * Assessment & Plan Note - Cherelle Corcoran MD - 08/30/2019 5:20 PM CDTAssociated Problem(s): Schizoaffective disorder, bipolar type (CMS/HCC) (HCC) (Deleted) Referral to psychiatry Patient and daughter to determine previous medications * Assessment & Plan Note - Cherelle Corcoran MD - 08/30/2019 5:19 PM CDTAssociated Problem(s): Diabetic neuropathy (HCC) (Resolved 05/16/2024) Uncontrolled, but just restarted gabapentin Patient to confirm dosing and consider increasing documented in this encounter Plan of Treatment Upcoming Encounters Date Type Department Care Team (Latest Contact Info) Description 07/13/2024 9:00 AM OPERATING ROOM ASSISTANT Hospital Encounter [facility] [address] [place] [address] Jaya Grier MD [address] [address] 07/13/2024 9:00 AM OPERATING ROOM ASSISTANT - 07/13/2024 9:30 AM OPERATING ROOM ASSISTANT Surgery [facility] [address] [place] [address] Jaya Grier MD [address] [facility] [address] [place] [address] ESOPHAGOGASTRODUODENOSCOPY Scheduled Procedures Name Priority Associated Diagnoses Date/Ti nh ESOPHAGOGASTRODUODENOSCOPY Anemia, unspecified type Gastritis without bleeding, unspecified chronicity, unspecified gastritis type 07/13/2024 9:00 AM OPERATING ROOM ASSISTANT COLONOSCOPY Iron deficiency anemia due to chronic blood loss Scheduled Referrals Name Type Priority Associated Diagnoses Orde r Schedule Ambulatory referral to Vascular Surgery Outpatient Referral Routine Uncontrolled type 2 diabetes mellitus with hyperglycemia (CMS/HCC) Diabetic ulcer of toe of right foot associated with type 2 diabetes mellitus, with necrosis of bone (CMS/HCC) Expected: 08/31/2019 (Approximate), Expires: 08/29/2020 documented as of this encounter Procedures Procedure Name Priority Date/Time Associated Diagnosis Comments COLONOSCOPY Routine 04/01/2017 documented in this encounter Results * COLONOSCOPY (04/01/2017) Colonoscopy Abnormal Historical Provider [facility] Final Result documented in this encounter Visit Diagnoses Diagnosis Schizophrenia, unspecified type (HCC)- Primary Uncontrolled type 2 diabetes mellitus with hyperglycemia (HCC) Diabetic ulcer of toe of right foot [...] 0.6 mg/0.1 mL (18 mg/3 mL) injection INJECT 0.6 MG SUBCUTANEOUSLY DAILY Reorder 08/28/2019 08/30/2019 documented as of this encounter Historical Medications * This list may reflect changes made after this encounter. insulin syringe-needle U-100 (BD Insulin Syringe Ultra-Fine) 1 mL 31 gauge x 5/16 syringe 3 times a day 09/12/2017 0 pen needle, diabetic 32 gauge x 3/16 needle Once a day 08/19/2017 0 Basaglar KwikPen U-100 Insulin 100 unit/mL (3 mL) insulin pen 24 Units 06/30/2019 0 Victoza 2-Vivek 0.6 mg/0.1 mL (18 mg/3 mL) injection INJECT 0.6 MG SUBCUTANEOUSLY DAILY 08/28/2019 0 gabapentin (NEURONTIN) 100 mg capsule Take by mouth 3 (three) times a day 08/28/2019 09/06/19 2 0 amoxicillin-cla vulanate (AUGMENTIN) 875-125 mg per tablet TK 1 T PO Q 12 HOURS 08/28/2019 0 added in this encounter Care Teams Explosives Detonator Relationship Specialty Start Date End Date Cherelle Corcoran MD PCP - General Family Medicine 08/30/19 documented as of this encounter
--- OUTSIDE RECORDS SUMMARY | 2024-07-04 04:25 | XMS_ITS | Encounter Summary ---
Author Organization [facility] Address [address] [place] [address] Care Team Providers Care Stone Circular Sawyer Name Role Phone Cherelle Corcoran MD Primary Care Pro vider Encounter Details Date Type Department Care Team (Late st Contact Info) Description 09/15/2019 1:15 PM CDT Office Visit [facility] Vascular and Vein Surgery [address] [facility] [address] [place] [address] Guy Walsh MD [address] [place] [address] [address] [place] [address] Other diabetic neurological complication associated with type 2 diabetes mellitus (CMS/HCC) (Primary Dx); Uncontrolled type 2 diabetes mellitus with hyperglycemia (CMS/HCC); Diabetic ulcer of toe of right foot associated with type 2 diabetes mellitus, with necrosis of bone (CMS/HCC) Social History Tobacco Use Types Packs/Day Years Used Date Smoking Tobacco: Never Smokeless Tobacco: Never Alcohol Use Standard Drinks/Week Comments Not Currently 0 (1 standard drink = 0.6 oz pur e alcohol) PHQ-2 Answer Date Recorded PHQ-2 Score 0 08/30/2019 Comments No Sex and Gender Information Value Date Recorded Sex Assigned at Not on file Legal Sex Female 9:03 AM CONSULTANT LUXURY AND AUTO. VICE PRESIDENT [employer] (EX ) Gender Identity Female 02/08/2020 6:39 PM CDT Sexual Orientation Not on file COVID-19 Exposure Response Date Recorded In the last month, have you been in contact with someone who was confirmed or suspected to have Coronavirus / COVID-19? No / Unsure 09/15/2019 1:27 PM CDT documented as of this encounter Last Filed Vital Signs Vital Sign Reading Time Taken Comments Blood Pressure - - Pulse - - Temperature 36.4 ??C (97.6 ??F) 09/15/2019 1:36 PM CD T Respiratory Rate - - Oxygen Saturation - - Inhaled Oxygen Concentration - - Weight - - Height - - Body Mass Index - - documented in this encounter Progress Notes * Guy Walsh MD - 09/15/2019 1:15 PM CDT Subjective/Objective Patient ID: Barbara Chakraborty is a 68 y.o. female. Chief Complaint Ulceration right 1st toe No chief complaint on file. HPI The patient is a 68-year-old woman with history of diabetes and diabetic neuropathy who has developed a superficial ulceration over the right plantar surface of the right 1st toe. It has been associated with edema and erythema. The ulceration has gradually decreasing size although the patient has developed significant erythema at the right 1st metatarsophalangeal joint. She has had no fevers chills or sweats. the patient has also noted a small ulceration on the medial aspect of the right 4th toe in the right 4th interspace. Current Outpatient Medications: ??? amoxicillin-clavulanate (Augmentin) 875-125 mg per tablet, Take 1 tablet by mouth 2 (two) timesa day, Disp: 60 tablet, Rfl: 3 ??? Basaglar KwikPen U-100 Insulin 100 unit/mL (3 mL) insulin pen, 24 Units , Disp: , Rfl: ??? gabapentin (NEURONTIN) 300 mg capsule, Take 1 capsule (300 mg total) by mouth 3 (three) times aday, Disp: 90 capsule, Rfl: 1 ??? insulin syringe-needle U-100 (BD Insulin Syringe Ultra-Fine) 1 mL 31 gauge x 5/16 syringe, 3 times a day, Disp: , Rfl: ??? pen needle, diabetic 32 gauge x 3/16 needle, Once a day, Disp: , Rfl: ??? Victoza 2-Vivek 0.6 mg/0.1 mL (18 mg/3 mL) injection, Inject 1.2 mg under the skin daily, Disp: 6mL, Rfl: 1 No Known Allergies Past Medical History: Diagnosis [...] on phone: None Gets together: None Attends episcopal service: None Active member of club or [...] diarrhea. Genitourinary: No dysuria. No hematuria. Extremities: Right 1st toe ulcer Musculoskeletal: No joint pains. No back pain. [...] No murmurs, rubs or gallops appreciated. Extremities: Superficial ulceration plantar surface right 1st toe with associated dry skin. There is also edema and erythema of the right knee infection is not resolving.. The patient also has a small ulceration on the medial aspect of the right 4th toe from trauma. Abdominal: Soft, nontender, no masses. 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 Right 1st toe ulceration. The ulceration appears to be stable although the erythema is progressing. Plan: Continue oral antibiotic therapy. Check outpatient MRI. If the MRI is positive the patient will require right 1st toe amputation. I have discussed with the patient who understood agreed. Follow-up in 2 weeks Impression 2. Diabetic neuropathy. The the patient's neuropathies reason why she has toe ulcerations and is being careful to examine her feet daily Plan: Continue with prevented foot care Impression 3. Diabetes. The patient's diabetes currently under good control Plan: Diabetic management as per primary care provider documented in this encounter Plan of Treatment Upcoming Encounters Date Type Department Care Team (Latest Contact Info) Description 07/13/2024 9:00 AM CONSULTANT LUXURY AND AUTO. VICE PRESIDENT [employer] (EX ) Hospital Encounter [facility] [address] [place] [address] Jaya Grier MD [facility] [address] [address] 07/13/2024 9:00 AM CONSULTANT LUXURY AND AUTO. VICE PRESIDENT [employer] (EX ) - 07/13/2024 9:30 AM CONSULTANT LUXURY AND AUTO. VICE PRESIDENT [employer] (EX ) Surgery [facility] [address] [place] [address] Jaya Grier MD [address] [place] [address] ESOPHAGOGASTRODUODENOSCOPY Scheduled Procedures Name Priority Associated Diagnoses Date/Ti me ESOPHAGOGASTRODUODENOSCOPY Anemia, unspecified type Gastritis without bleeding, unspecified chronicity, unspecified gastritis type 07/13/2024 9:00 AM CONSULTANT LUXURY AND AUTO. VICE PRESIDENT [employer] (EX ) COLONOSCOPY Iron deficiency anemia due to chronic blood loss documented as of this encounter Visit Diagnoses Diagnosis Other diabetic neurological complication associated with type 2 diabetes mellitus (HCC)- Primary Uncontrolled type 2 diabetes mellitus with hyperglycemia (HCC) Diabetic ulcer of toe of right foot associated with type 2 diabetes mellitus, with necrosis of bone (HCC) Anemia, unspecified type Gastritis without bleeding, unspecified chronicity, unspecified gastritis type documented in this encounter Care Teams Stone Circular Sawyer Relationship Specialty Start Date End Date Cherelle Corcoran MD PCP - General Family Medicine 08/30/19 documented as of this encounter
--- OUTSIDE RECORDS SUMMARY | 2024-07-04 04:25 | XMS_ITS | Encounter Summary ---
Author Organization [facility] Address [address] [facility] [address] [place] [address] Care Team Providers Care Agricultural Engineering Teacher Name Role Phone Cherelle Corcoran MD Primary Care Pro vider Encounter Details Date Type Department Care Team (Late st Contact Info) Description 10/21/2019 Telephone [facility] Primary Care [address] [facility] [address] [place] [address] Cherelle Corcoran MD [address] [facility] [address] [place] [address] Social History Tobacco Use Types Packs/Day Years Used Date Smoking Tobacco: Never Smokeless Tobacco: Never Alcohol Use Standard Drinks/Week Comments Not Currently 0 (1 standard drink = 0.6 oz pur e alcohol) PHQ-2 Answer Date Recorded PHQ-2 Score 0 08/30/2019 Comments No Sex and Gender Information Value Date Recorded Sex Assigned at Not on file Legal Sex Female 9:03 AM GROUTMAN Gender Identity Female 02/08/2020 6:39 PM CDT Sexual Orientation Not on file documented as of this encounter Miscellaneous Notes * Telephone Encounter - Cherelle Corcoran MD - 10/24/2019 2:49 PM CDT Are there any other options for home health? * Telephone Encounter - Martha Grover - 10/21/2019 3:21 PM CDT CONSTANCE Jacobson from [facility] Home Care LM stating that this patient doesn't have Medicare ( assuming its the [facility])and they do NOT accept her insurance. They will not be able to see her. documented in this encounter Plan of Treatment Upcoming Encounters Date Type Department Care Team (Latest Contact Info) Description 07/13/2024 9:00 AM GROUTMAN Hospital Encounter [facility] GI [facility] [address] [place] [address] Jaya Grier MD [address] [place] [address] [address] [place] [address] 07/13/2024 9:00 AM GROUTMAN - 07/13/2024 9:30 AM GROUTMAN Surgery [facility] [address] [place] [address] Jaya Grier MD [address] [place] [address] DR [address] [place] [address] ESOPHAGOGASTRODUODENOSCOPY Scheduled Procedures Name Priority Associated Diagnoses Date/Ti pr ESOPHAGOGASTRODUODENOSCOPY Anemia, unspecified type Gastritis without bleeding, unspecified chronicity, unspecified gastritis type 07/13/2024 9:00 AM GROUTMAN COLONOSCOPY Iron deficiency anemia due to chronic blood loss documented as of this encounter Visit Diagnoses Not on filedocumented in this encounter Care Teams Agricultural Engineering Teacher Relationship Specialty Start Date End Date Cherelle Corcoran MD PCP - General Family Medicine 08/30/19 documented as of this encounter
--- OUTSIDE RECORDS SUMMARY | 2024-07-04 04:25 | XMS_ITS | Encounter Summary ---
Author Organization [facility] Care Team Providers Care Salt Cutter Name Role Phone Cherelle Corcoran MD Primary Care Pro vider Encounter Details Date Type Department Care Team (Latest Contact Info) Description 09/15/2019 Travel Social History Tobacco Use Types Packs/Day Years Used Date Smoking Tobacco: Never Smokeless Tobacco: Never Alcohol Use Standard Drinks/Week Comments Not Currently 0 (1 standard drink = 0.6 oz pur e alcohol) PHQ-2 Answer Date Recorded PHQ-2 Score 0 08/30/2019 Comments No Sex and Gender Information Value Date Recorded Sex Assigned at Not on file Legal Sex Female 9:03 AM SPLUNK DEVELOPER Gender Identity Female 02/08/2020 6:39 PM [...] (Latest Contact Info) Description 07/13/2024 9:00 AM SPLUNK DEVELOPER Hospital Encounter [facility] GI [facility] [address] [place] [address] Jaya Grier MD [facility] [address] [address] 07/13/2024 9:00 AM SPLUNK DEVELOPER - 07/13/2024 9:30 AM SPLUNK DEVELOPER Surgery [facility] [address] [place] [address] Jaya Girer MD [address] [address] ESOPHAGOGASTRODUODENOSCOPY Scheduled Procedures Name Priority Associated Diagnoses Date/Ti me ESOPHAGOGASTRODUODENOSCOPY Anemia, unspecified type Gastritis without bleeding, unspecified chronicity, unspecified gastritis type 07/13/2024 9:00 AM SPLUNK DEVELOPER COLONOSCOPY Iron deficiency anemia due to chronic blood loss documented as of this encounter Visit Diagnoses Not on filedocumented in this encounter Care Teams Salt Cutter Relationship Specialty Start Date End Date Cherelle Corcoran MD PCP - General Family Medicine 08/30/19 documented as of this encounter
--- OUTSIDE RECORDS SUMMARY | 2024-07-04 04:25 | XMS_ITS | Encounter Summary ---
Author Organization [facility] Address [address] [place] [address] Care Team Providers Care Crew Chief Name Role Phone Cherelle Corcoran MD Primary Care Pro vider Reason for Visit * Consultation (Routine) - Closed Specialty Diagnoses / Procedures Referred By Contac t Referred To Contact Vascular Surgery Diagnoses Uncontrolled type 2 diabetes mellitus with hyperglycemia (HCC) Diabetic ulcer of toe of right foot associated with type 2 diabetes mellitus, with necrosis of bone (HCC) Cherelle Corcoran MD Phone: tel: fax: [facility] [address] [place] [address] Phone: tel: fax: Referral ID Status Reason Start Date Expiration Date V isits Requested Visits Authorized [id number] Closed Specialty Services Required 08/30/2019 03/10/2021 1 1 Encounter Details Date Type Department Care Team (Late st Contact Info) Description 09/01/2019 2:00 PM CDT Office Visit [facility] Vascular and Vein Surgery [address] [place] [address] Guy Walsh MD [address] [place] [address] [address] [place] [address] Other diabetic neurological complication associated with type [...] on file Legal Sex Female 9:03 AM PASTRY MIXER Gender Identity Female 02/08/2020 6:39 PM CDT Sexual Orientation Not on file COVID-19 Exposure Response Date Recorded In the last month, have you been in contact with someone who was confirmed or suspected to have Coronavirus / COVID-19? No / Unsure 09/01/2019 2:07 PM CDT documented as of this encounter Last Filed Vital Signs Vital Sign Reading Time Taken Comments Blood Pressure 136/68 09/01/2019 2:23 PM CDT Pulse 93 09/01/2019 2:23 PM CDT Temperature - - Respiratory Rate - - Oxygen Saturation - - Inhaled Oxygen Concentration - - Weight 56.7 kg (125 lb) 09/01/2019 2:23 PM CDT Height 157.5 cm (5' 2 ) 09/01/2019 2:23 PM CDT Body Mass Index 22.86 09/01/2019 2:23 PM CDT documented in this encounter Ordered Prescriptions Prescription Sig Dispense Quantity Refills Last Filled Start Date End Date amoxicillin-clavul anate (Augmentin) 875-125 mg per tablet Take 1 tablet by mouth 2 (two) times a day 60 tablet 3 09/01/2019 10/21/2019 documented in this encounter Progress Notes * Guy Walsh MD - 09/01/2019 2:00 PM CDT Subjective/Objective Patient ID: Barbara Chakraborty is a 68 y.o. female. Chief Complaint Ulceration right 1st toe No chief complaint on file. HPI The patient is a 68-year-old woman with history of diabetic neuropathy in diabetes who developed a superficial ulceration over the right plantar surface of her 1st toe. It has been associated with erythema and edema. She is being treated with oral antibiotic therapy and dressing changes. She had nocomplaints of rest pain or ischemic ulceration. Current Outpatient Medications: ??? amoxicillin-clavulanate (Augmentin) 875-125 mg per tablet, Take 1 tablet by mouth 2 (two) timesa day, Disp: 60 tablet, Rfl: 3 ??? Basaglar KwikPen U-100 Insulin 100 unit/mL (3 mL) insulin pen, 24 Units , Disp: , Rfl: ??? gabapentin (NEURONTIN) 100 mg capsule, Take by mouth 3 (three) times a day , Disp: , Rfl: ??? insulin syringe-needle U-100 (BD Insulin Syringe Ultra-Fine) 1 mL 31 gauge x 5/16 syringe, 3 times a day, Disp: , Rfl: ??? pen needle, diabetic 32 gauge x 3/16 needle, Once a day, Disp: , Rfl: ??? Victoza 2-Vivek 0.6 mg/0.1 mL (18 mg/3 mL) injection, Inject 0.6 mg under the skin daily, Disp: 3mL, Rfl: 1 No Known Allergies Past Medical [...] on phone: None Gets together: None Attends tenriism service: None Active member of club or [...] Posterior tibial and dorsalis pedis pulses palpable. Thesuperficial ulceration plantar surface right 1st toe which is granulating. Minimal edema and erythema Abdominal: Soft, nontender, no masses. Normal bowel [...] complication associated with type 2 diabetes mellitus ([facility]) (Primary) Uncontrolled type 2 diabetes mellitus with hyperglycemia ([facility]) - Ambulatory referral to Vascular Surgery Diabetic ulcer of toe of right foot associated with type 2 diabetes mellitus, with necrosis of bone([facility]) - Ambulatory referral to Vascular Surgery Other orders - amoxicillin-clavulanate (Augmentin) 875-125 mg per tablet; Take 1 tablet by mouth 2 (two) times aday impression 1. Diabetic ulcer right 1st toe. There is associated mild soft tissue infection. There is excellent distal arterial supply. There is no exposed bone in no drainage. Plan: Daily dressing changes antibiotic therapy, minimize weight-bearing, oral antibiotic therapy, follow-up in 2 weeks Impression 2. Diabetes. Patient's diabetes currently under good control Plan: Diabetic management as per primary care provider Impression 3. Diabetic neuropathy. The patient does have neuropathy of both feet. This is likely the underlying cause of the patient's ulceration. Once or ulceration is healed she will need orthotic footwear bilaterally. Plan: Follow-up in 2 weeks documented in this encounter Plan of Treatment Upcoming Encounters Date Type Department Care Team (Latest Contact Info) Description 07/13/2024 9:00 AM PASTRY MIXER Hospital Encounter [facility] GI Lab [address] [place] [id number] Jaya Grier MD [facility] [address] [place] [address] 07/13/2024 9:00 AM PASTRY MIXER - 07/13/2024 9:30 AM PASTRY MIXER Surgery [facility] [address] [place] [address] Jaya Grier MD [facility] [address] [place] [phone] ESOPHAGOGASTRODUODENOSCOPY Scheduled Procedures Name Priority Associated Diagnoses Date/Ti md ESOPHAGOGASTRODUODENOSCOPY Anemia, unspecified type Gastritis without bleeding, unspecified chronicity, unspecified gastritis type 07/13/2024 9:00 AM PASTRY MIXER COLONOSCOPY Iron deficiency anemia due to [...] Reason Start Date End Da te amoxicillin-clavulanate (AUGMENTIN) 875-125 mg per tablet TK 1 T PO Q 12 HOURS 08/28/2019 09/01/2019 documented as of this encounter Orders Outpatient Referral Count Last Ordered Date Fir st Ordered Date AMB REFERRAL TO VASCULAR SURGERY 1 09/01/19 documented in this encounter Care Teams Crew Chief Relationship Specialty Start Date End Date Cherelle Corcoran MD PCP - General Family Medicine 08/30/19 documented as of this encounter
--- OUTSIDE RECORDS SUMMARY | 2024-07-04 04:25 | XMS_ITS | Encounter Summary ---
Author Organization [facility] Address [address] [place] [address] Care Team Providers Care Gas Load Dispatcher Name Role Phone Cherelle Corcoran MD Primary Care Pro vider Encounter Details Date Type Department Care Team (Late st Contact Info) Description 09/21/2019 Orders Only [facility] Vascular and Vein Surgery [address] [place] [address] Guy Walsh MD [address] [place], [place] [id number] Osteomyelitis of right foot, unspecified type (CMS/HCC) [...] on file Legal Sex Female 9:03 AM CUTTER GAS Gender Identity Female 02/08/2020 6:39 PM CDT [...] (Latest Contact Info) Description 07/13/2024 9:00 AM CUTTER GAS Hospital Encounter [facility] GI Lab [address] [place] [address] Jaya Grier MD [facility] [address] [place] [address] 07/13/2024 9:00 AM CUTTER GAS - 07/13/2024 9:30 AM CUTTER GAS Surgery [facility] [address] [place] [address] Jaya Grier MD [address] [facility] [address] [place] [phone] ESOPHAGOGASTRODUODENOSCOPY Scheduled Procedures Name Priority Associated Diagnoses Date/Ti ms ESOPHAGOGASTRODUODENOSCOPY Anemia, unspecified type Gastritis without bleeding, unspecified chronicity, unspecified gastritis type 07/13/2024 9:00 AM CUTTER GAS COLONOSCOPY Iron deficiency anemia due to chronic blood loss documented as of this encounter Visit Diagnoses Diagnosis Osteomyelitis of right foot, unspecified type (HCC)- Primary Anemia, unspecified type Gastritis without bleeding, unspecified chronicity, unspecified gastritis type documented in this encounter Care Teams Gas Load Dispatcher Relationship Specialty Start Date End Date Cherelle Corcoran MD PCP - General Family Medicine 08/30/19 documented as of this encounter
--- OUTSIDE RECORDS SUMMARY | 2024-07-04 04:25 | XMS_ITS | Encounter Summary ---
Author Organization [facility] Address [address] [place] [address] Care Team Providers Care Journeyman Lineman Name Role Phone Cherelle Corcoran MD Primary Care Pro vider Encounter Details Date Type Department Care Team (Late st Contact Info) Description 10/12/2019 Telephone [facility] Primary Care [address] [place] [address] Natacha London MA Social History [...] on file Legal Sex Female 9:03 AM YOUTH OFFICER Gender Identity Female 02/08/2020 6:39 PM CDT Sexual Orientation Not on file COVID-19 Exposure Response Date Recorded In the last month, have you been in contact with someone who was confirmed or suspected to have Coronavirus / COVID-19? No / Unsure 09/15/2019 2:02 PM CDT documented as of this encounter Miscellaneous Notes * Telephone Encounter - Natacha London MA - 10/20/2019 1:23 PM CDT Made appt for follow up tomorrow. * Telephone Encounter - Cherelle Corcoran MD - 10/20/2019 7:55 AM CDT Wound dressing instructions come from Dr. Walsh, so it would likely be best to go through him, but I can order home health if needed. I would like visit to follow up diabetes, as making sure this is best managed will help improve healing. Thanks * Telephone Encounter - Natacha London MA - 10/19/2019 12:35 PM CDT Wouldn't Jillian's office order this? * Telephone Encounter - Sandra Smith LPN - 10/19/2019 12:05 PM CDT The patient's daughter Areli called back regarding the message below. She would like to discuss getting a wound care nurse for her toes. She would like a call back today [phone] * Telephone Encounter - Natacha London MA - 10/12/2019 2:06 PM CDT Called pt daughter, Areli, and left a detailed voice mail stating pt needs a follow up visit. This appointment can be a video (Zoom) visit. documented in this encounter Plan of Treatment Upcoming Encounters Date Type Department Care Team (Latest Contact Info) Description 07/13/2024 9:00 AM YOUTH OFFICER Hospital Encounter [facility] GI [facility] [address] [place] [address] Jaya Grier MD [address] [place] [address] 07/13/2024 9:00 AM YOUTH OFFICER - 07/13/2024 9:30 AM YOUTH OFFICER Surgery [facility] [address] [place] [address] Jaya Grier MD [address] [place] [address] ESOPHAGOGASTRODUODENOSCOPY Scheduled Procedures Name Priority Associated Diagnoses Date/Ti me ESOPHAGOGASTRODUODENOSCOPY Anemia, unspecified type Gastritis without bleeding, unspecified chronicity, unspecified gastritis type 07/13/2024 9:00 AM YOUTH OFFICER COLONOSCOPY Iron deficiency anemia due to chronic blood loss documented as of this encounter Visit Diagnoses Not on filedocumented in this encounter Care Teams Journeyman Lineman Relationship Specialty Start Date End Date Cherelle Corcoran MD PCP - General Family Medicine 08/30/19 documented as of this encounter
--- OUTSIDE RECORDS SUMMARY | 2024-07-04 04:25 | XMS_ITS | Encounter Summary ---
Author Organization [facility] Medical [facility] Address [address] [place] [address] Care Team Providers Care Labor Trainer Name Role Phone Cherelle Corcoran MD Primary Care Pro vider Encounter Details Date Type Department Care Team (Late st Contact Info) Description 09/28/2019 Telephone [facility] Vascular and Vein Surgery [address] [place] [address] Guy Walsh MD [address] [facility] [address] [place], [place] [id number] Social History Tobacco Use Types Packs/Day Years Used Date Smoking Tobacco: Never Smokeless Tobacco: Never Alcohol Use Standard Drinks/Week Comments Not Currently 0 (1 standard drink = 0.6 oz pur e alcohol) PHQ-2 Answer Date Recorded PHQ-2 Score 0 08/30/2019 Comments No Sex and Gender Information Value Date Recorded Sex Assigned at Not on file Legal Sex Female 9:03 AM MARBLE POLISHER Gender Identity Female 02/08/2020 6:39 PM CDT Sexual Orientation Not on file COVID-19 Exposure Response Date Recorded In the last month, have you been in contact with someone who was confirmed or suspected to have Coronavirus / COVID-19? No / Unsure 09/15/2019 2:02 PM CDT documented as of this encounter Miscellaneous Notes * Telephone Encounter - Leslie Knox RN - 09/30/2019 1:25 PM CDT Order sent via [facility] [place] * Telephone Encounter - Silvia Han - 09/28/2019 2:30 PM CDT rec'd call from [facility] and I need new order for MRI right foot wo contrast for osteo M86.9. pt scheduled on Thu10/03/19 at 4:30pm [facility] documented in this encounter Plan of Treatment Upcoming Encounters Date Type Department Care Team (Latest Contact Info) Description 07/13/2024 9:00 AM MARBLE POLISHER Hospital Encounter [facility] [address] [place] [address] Jaya Grier MD [facility] [address] [place] [address] 07/13/2024 9:00 AM MARBLE POLISHER - 07/13/2024 9:30 AM MARBLE POLISHER Surgery [facility] [address] [place] [address] Jaya Grier MD [address] [place] [address] [address] [place] [address] ESOPHAGOGASTRODUODENOSCOPY Scheduled Procedures Name Priority Associated Diagnoses Date/Ti sc ESOPHAGOGASTRODUODENOSCOPY Anemia, unspecified type Gastritis without bleeding, unspecified chronicity, unspecified gastritis type 07/13/2024 9:00 AM MARBLE POLISHER COLONOSCOPY Iron deficiency anemia due to chronic blood loss documented as of this encounter Visit Diagnoses Not on filedocumented in this encounter Care Teams Labor Trainer Relationship Specialty Start Date End Date Cherelle Corcoran MD PCP - General Family Medicine 08/30/19 documented as of this encounter
--- OUTSIDE RECORDS SUMMARY | 2024-07-04 04:25 | XMS_ITS | Encounter Summary ---
Author Organization [facility] Care Team Providers Care Home Care Specialist Name Role Phone Unavailable Primary Care Provider Unavailabl e Encounter Details Date Type Department Care Team (Latest Contact Info) Description 05/13/2019 Travel Social History Tobacco Use Types Packs/Day Years Used Date Smoking Tobacco: Never Smokeless Tobacco: Never Comments No Sex and Gender Information Value Date Recorded Sex Assigned at Not on file Legal Sex Female 9:03 AM POT FILLER Gender Identity Female 02/08/2020 6:39 PM CDT Sexual Orientation Not on file documented as of this encounter Plan of Treatment Upcoming Encounters Date Type Department Care Team (Latest Contact Info) Description 07/13/2024 9:00 AM POT FILLER Hospital Encounter [facility] GI Lab [address] [place] [address] Jaya Grier MD [facility] [address] [place] [address] 07/13/2024 9:00 AM POT FILLER - 07/13/2024 9:30 AM POT FILLER Surgery [facility] Lab [address] [place] [address] Jaya Grier MD [facility] [address] [place] [address] ESOPHAGOGASTRODUODENOSCOPY Scheduled Procedures Name Priority Associated Diagnoses Date/Ti me ESOPHAGOGASTRODUODENOSCOPY Anemia, unspecified type Gastritis without bleeding, unspecified chronicity, unspecified gastritis type 07/13/2024 9:00 AM POT FILLER COLONOSCOPY Iron deficiency anemia due to chronic blood loss documented as of this encounter Visit Diagnoses Not on filedocumented in this encounter
--- OUTSIDE RECORDS SUMMARY | 2024-07-04 04:25 | XMS_ITS | Encounter Summary ---
Author Organization [facility] Healthcare Address [address] [place] [address] Care Team Providers Care Slps Name Role Phone Unavailable Primary Care Provider Unavailabl e Encounter Details Date Type Department Care Team (Late st Contact Info) Description 01/19/2017 7:54 PM CDT - 01/20/2017 12:41 AM CDT Emergency [facility] Emergency Department [address] [place] [address] Miguel Freeman Jr., MD [address] [place] [address] Discharge Disposition: Discharge to home or self care Social History Tobacco Use Types Packs/Day Years Used Date Smoking Tobacco: Never Assessed Comments Unknown Sex and Gender Information Value Date Recorded Sex Assigned at Not on file Legal Sex Female 9:03 AM SNUFF MAKER Gender Identity Female 02/08/2020 6:39 PM CDT Sexual Orientation Not on file documented as of this encounter Discharge Disposition Disposition Code Departure Means Destination Discharge to home or self care documented in this encounter Plan of Treatment Upcoming Encounters Date Type Department Care Team (Latest Contact Info) Description 07/13/2024 9:00 AM SNUFF MAKER Hospital Encounter [facility] GI Lab [address] [place] [address] Jaya Grier MD [address] [address] 07/13/2024 9:00 AM SNUFF MAKER - 07/13/2024 9:30 AM SNUFF MAKER Surgery [facility] GI Lab [address] [place] [address] Jaya Grier MD [address] GAINES [address] [place] [address] ESOPHAGOGASTRODUODENOSCOPY Scheduled Procedures Name Priority Associated Diagnoses Date/Ti me ESOPHAGOGASTRODUODENOSCOPY Anemia, unspecified type Gastritis without bleeding, unspecified chronicity, unspecified gastritis type 07/13/2024 9:00 AM SNUFF MAKER COLONOSCOPY Iron deficiency anemia due to chronic blood loss documented as of this encounter Procedures Procedure Name Priority Date/Time Associated Diagnosis Comments CT ABDOMEN PELVIS WO CONTRAST Routine 01/20/2017 3:17 AM CDT GLUCOSE POC Routine 01/19/2017 11:00 PM CDT EGFR STAT 01/19/2017 8:36 PM CDT DIFFERENTIAL AUTO STAT 01/19/2017 8:3 6 PM CDT PRO B-TYPE NATRIURETIC PEPTIDE STAT 01/19/2017 8:36 PM CDT CBC WITH AUTO DIFFERENTIAL STAT 01/19/2017 8:36 PM CDT TROPONIN T STAT 01/19/2017 8:36 PM CDT LIPASE STAT 01/19/2017 8:36 PM CDT AMYLASE STAT 01/19/2017 8:36 PM CDT COMPREHENSIVE METABOLIC PANEL STAT 01/19/2017 8:36 PM CDT URINALYSIS AND REFLEX TO MICROSCOPIC AND CULTURE STAT 01/19/2017 8:10 PM CDT documented in this encounter Results * CT Abdomen Pelvis WO Contrast (01/20/2017 3:17 AM CDT) Anatomical Region Laterality Modality Body N/A Computed Tomogra phy 01/20/2017 3:17 AM CDT Narrative 01/20/2017 3:[address] Abd/[place] ?[id number] ??Acc#: ??[id number] DATE OF EXAM: ??Jan 19 2017 ?? CT Abd/[place] ?[id number] HISTORY: Left lower to left upper quadrant/left side abdominal pain for several months. ??Swelling. TECHNIQUE: Noncontrast spiral axial scans from lung bases to ischial tuberosities. ??Coronal and sagittal reformatted images. COMPARISON: CT KUB Stone without contrast on 09/29/2013 FINDINGS: Lung bases are clear. ??Liver, gallbladder, bile ducts, pancreas, spleen, adrenal glands, kidneys, and ureters are normal. Gallbladder is very full/distended without wall thickening, calculi or mass. ??Uterus and ovaries appear normal. ??A few pelvic phleboliths are noted. ??Appendix is normal. ??Several scattered diverticula are present in the sigmoid and descending colon; without changes of diverticulitis. ??No dilated or thickened colon or small bowel is seen. ??Stomach is full with particulate matter and a mild amount of air. ??No lymphadenopathy or ascites is seen. ??There is very minimal calcification at the aortic bifurcation. ??No aneurysm is seen. ??There is no lymphadenopathy or ascites. ??Abdominal and pelvic wall structures appear intact. ??Bony structures are unremarkable. IMPRESSION: 1. ??Distended urinary bladder. 2. ??Very mild arteriosclerosis. 3. ??Mild diverticulosis of colon without changes of diverticulitis. 4. ??No other significant abdominal or pelvic findings. Electronically signed by: Demetri Saucedo Jr., M.D. Interpreting Physician: ??DR DEMETRI SAUCEDO M.D. ??Read on: ??Jan 19 2017 10:35P Transcribed by: ??PSC ??On: Jan 19 2017 10:33P Approved Electronically by: ??CORINA Vicente, DR CLARK ??on: ??Jan 19 2017 10:33P Ordering DR: DR MIGUEL FREEMAN Attending DR: DR MIGUEL FREEMAN Attending: ??DR MIGUEL FREEMANing: ??DR MIGUEL FREEMAN Requesting Fax: ??-- Attending Fax: ??-- Attending ID: ??[id number] Requesting ID: ??[id number] Report To 1 ID: ??[id number] Report To 1 Name: ??DR MIGUEL FREEMAN Report To 1 FAX: ??-- NextGen Order #: ?? Procedure Note Miscellaneous, Not In File / Provider, MD Joe - 01/19/2017 CT Abd/[place] [id number] Acc#: [id number] DATE OF EXAM: Jan [address] 2017 [address] Abd/[place] [id number] HISTORY: Left lower to left upper quadrant/left side abdominal pain for several months. Swelling. TECHNIQUE: Noncontrast spiral axial scans from lung bases to ischial tuberosities. Coronal and sagittal reformatted images. COMPARISON: CT KUB Stone without contrast on 09/29/2013 FINDINGS: Lung bases are clear. Liver, gallbladder, bile ducts, pancreas, spleen, adrenal glands, kidneys, and ureters are normal. Gallbladder is very full/distended without wall thickening, calculi or mass. Uterus and ovaries appear normal. A few pelvic phleboliths are noted. Appendix is normal. Several scattered diverticula are present in the sigmoid and descending colon; without changes of diverticulitis. No dilated or thickened colon or small bowel is seen. Stomach is full with particulate matter and a mild amount of air. No lymphadenopathy or ascites is seen. There is very minimal calcification at the aortic bifurcation. No aneurysm is seen. There is no lymphadenopathy or ascites. Abdominal and pelvic wall structures appear intact. Bony structures are unremarkable. IMPRESSION: 1. Distended urinary bladder. 2. Very mild arteriosclerosis. 3. Mild diverticulosis of colon without changes of diverticulitis. 4. No other significant abdominal or pelvic findings. Electronically signed by: Demetri Saucedo Jr., M.D. Interpreting Physician: DR DEMETRI SAUCEDO M.D. Read on: Jan 19 2017 10:35P Transcribed by: MARY On: Jan 19 2017 10:33P Approved Electronically by: CORINA Vicente, DR CLARK on: Jan 19 2017 10:33P Ordering DR: DR MIGUEL FREEMAN Attending DR: DR MIGUEL FREEMAN Attending: DR MIGUEL FREEMAN Requesting: DR MIGUEL FREEMAN Requesting Fax: -- Attending Fax: -- Attending ID: [id number] Requesting ID: [id number] Report To 1 ID: [id number] Report To 1 Name: DR MIGUEL FREEMAN Report To 1 FAX: -- NextGen Order #: Miguel Freeman Jr., MD IMG CT PROCEDURES Final Result * (ABNORMAL) Glucose POC (01/19/2017 11:00 PM CDT) Pathologist [facility] Glucose, POC 315(C) 71 - 98 mg/dL [facility] ([place]) Blood specimen (specimen) 01/19/2017 11:00 PM CDT 01/19/2017 11:00 PM CDT Miguel Freeman Jr., MD POINT OF CARE TEST ORDERABLES Final Result [facility] ([place]) 1 [facility] [place] [address] * (ABNORMAL) Pro B-type natriuretic peptide (01/19/2017 8:36 PM CDT) Pathologist [facility] NT-proBNP <10(L) 10 - 150 pg/mL [facility] ([place]) Comment: OK Diagnosis of Congestive Heart Failure: ??Heart Failure Unlikely: All Ages ?Less than 300 pg/ml ??Heart Failure Possible: Less than 50Y ?? 300-450 pg/ml ?50-75 Y ? 300-900 pg/ml ?75-160Y ? 300-1800 pg/ml ?Heart Failure Likely: ?? Less than 50Y ?? Greater than 450 pg/ml ?50-75 Y ? Greater than 900 pg/ml ?75-160 Y ?Greater than 1,800 pg/ml ??Renal Failure: ?All Ages ?Greater than 1,200 pg/ml Current interpretive data was last revised on 2014. Blood specimen (specimen) 01/19/2017 8:36 PM CDT 01/19/2017 8:38 PM CDT us Miguel Freeman Jr., MD LAB BLOOD ORDERABL ES Final Result Performing Organization Address City/[facility]/ZIP Co de Phone Number CARLOS ENRIQUEELLEN L[facility]E ([place]) [address] [place] [address] [place] [address] * Troponin T (01/19/2017 8:36 PM CDT) Troponin T <0.01 0.00 - 0.06 ng/mL [facility] ([place]) Comment: Interpretive Data Troponin table: ? Negative ? 0.00-0.06 ng/ml ? Indeterminate ?0.07-0.10 ng/ml ? Consistent with Myocardial Injury ?Greater than 0.10 ng/ml ?? Current interpretive data was last revised on 2014 Blood specimen (specimen) 01/19/2017 8:36 PM CDT 01/19/2017 8:38 PM CDT us Miguel Freeman Jr., MD LAB BLOOD ORDERABL ES Edited Result - Final N[facility]SA CHRISSY ([place]) 1 [facility] [place] [address] * eGFR (01/19/2017 8:36 PM CDT) eGFR >60 mL/min/1.7 3 m2 [facility] ([place]) Comment: Interpretive Data Reference Interval Normal ?>/= 90 mL/min/1.73m2 Mildly decreased* ? 60 - 89 mL/min/1.73m2 Mildly to moderately decreased ?45 - 59 mL/min/1.73m2 Moderately to severely decreased ??30 - 44 mL/min/1.73m2 Severely decreased ?15 - 29 mL/min/1.73m2 Kidney Failure ?< 15 ??mL/min/1.73m2 *Relative to young adult level If -Cameroonian multiply value by 1.16. Estimated glomerular filtration [...] was last reviewed 2016. Blood specimen (specimen) 01/19/2017 8:36 PM CDT 01/19/2017 8:38 PM CDT us Miguel Freeman Jr., MD LAB BLOOD ORDERABL ES Final Result [facility] ([place]) 1 [facility] [place] [address] * (ABNORMAL) Comprehensive metabolic panel (01/19/2017 8:36 PM CDT) Sodium 138 135 - 145 mmol/L [facility] ([place]) Potassium 4.5 3.5 - 5.1 mmol/L [facility] ([place]) Chloride 97 97 - 110 mmol/L [facility] ([place]) CO2 24 22 - 32 mmol/L [facility] ([place]) Anion gap 17(H) 8 - 16 mmol/L [facility] ([place]) Glucose 496(C) 70 - 199 mg/dL [facility] ([place]) Comment: Critical result called to and read back by BREONNA HIDALGO (ER) on 01/19/2017 21:02:40 CDT to [id number]. Interpretive Data Note:The glucose is assumed non fasting Fastin-99 mg/dL Random: ??70-199 mg/dL Either a fasting glucose > 126 mg/dL or a random glucose > 200 mg/dL plus symptoms is diagnostic of diabetes when confirmed on another day. Fasting values > 100 mg/dL but < 125 mg/dL are diagnostic of impaired fasting glucose. Current interpretive data was last revised on 2014. BUN 25.0 8.0 - 25.0 mg/dL [facility] ([place]) Creatinine 0.87 0.60 - 1.10 mg/dL [facility] ([place] BUN/creat ratio 29(H) 10 - 20 [facility] ([place]) Calcium 9.7 8.6 - 10.2 mg/dL [facility] ([place]) Protein, sr 7.6 6.0 - 8.4 g/dL [facility] ([place]) Albumin 4.1 3.6 - 5.0 g/dL [facility] ([place]) Alk phos 134(H) 40 - 130 Units/L [facility] ([place]) ALT 12 5 - 45 Units/L [facility] ([place]) AST 13 10 - 40 Units/L [facility] Bilirubin, total <0.2 <=1.2 mg/dL [facility] ([place]) Blood specimen (specimen) 01/19/2017 8:36 PM CDT 01/19/2017 8:38 PM CDT us Miguel Freeman Jr., MD LAB BLOOD ORDERABL ES Final Result [facility] ([place]) 1 [facility] [place] [address] * (ABNORMAL) Lipase (01/19/2017 8:36 PM CDT) Lipase 87(H) 10 - 70 Units/L [facility] ([place]) Blood specimen (specimen) 01/19/2017 8:36 PM CDT 01/19/2017 8:38 PM CDT Miguel Freeman Jr., MD LAB BLOOD ORDERABL ES Final Result [facility] ([place]) 1 [facility] [employer] [place] [address] * Amylase (01/19/2017 8:36 PM CDT) Pathologist [facility] Amylase 79 30 - 100 Units/L [facility] ([place]) Blood specimen (specimen) 01/19/2017 8:36 PM CDT 01/19/2017 8:38 PM CDT us Miguel Freeman Jr., MD LAB BLOOD ORDERABL ES Final Result Performing Organization Address City/[facility] Co de Phone Number [facility] ([place]) 1 [facility] [place] [address] * Differential, auto (01/19/2017 8:36 PM CDT) Neutrophil pct 57.5 44.0 - 80.0 % [facility] ([place]) Imm gran pct 0.2 0.0 - 1.0 % [facility] ([place]) Lymphocyte pct 34.7 13.0 - 44.0 % [facility] ([place]) Monocyte pct 6.5 2.0 - 11.0 % [facility] ([place]) Eosinophil pct 0.8 0.0 - 6.0 % [facility] ([place]) Basophil pct 0.3 0.0 - 3.0 % [facility] ([place]) Neutrophil abs 5.02 1.60 - 7.00 K/cumm [facility] ([place]) Imm gran abs 0.02 0.00 - 0.20 K/cumm [facility] ([place]) Lymphocyte abs 3.04 0.50 - 4.30 K/cumm [facility] ([place]) Monocyte abs 0.57 0.10 - 1.00 K/cumm [facility] ([place]) Eosinophil abs 0.07 0.00 - 0.60 K/cumm [facility] ([place]) Basophil abs 0.03 0.00 - 0.30 K/cumm [facility] ([place]) Blood specimen (specimen) 01/19/2017 8:36 PM CDT 01/19/2017 8:38 PM CDT us Miguel Freeman Jr., MD LAB BLOOD ORDERABL ES Final Result [facility] ([place]) 1 [facility] Department [place] [address] * (ABNORMAL) CBC with auto differential (01/19/2017 8:36 PM CDT) WBC 8.75 3.80 - 9.80 K/cumm [facility] ([place]) RBC 4.00 3.90 - 5.00 M/cumm [facility] ([place]) Hgb 12.1 12.1 - 15.1 g/dL [facility] ([place]) Hct 35.7(L) 36.1 - 44.3 % [facility] ([place]) MCV 89.3 80.0 - 100.0 fL [facility] ([place]) MCH 30.3 26.7 - 33.7 pg [facility] ([place]) MCHC 33.9 32.7 - 36.0 g/dL [facility] ([place]) RDW CV 12.8 11.5 - 14.6 % [facility] ([place]) Plt 280 140 - 440 K/cumm [facility] ([place]) MPV 10.0 8.0 - 12.0 fL [facility] ([place]) NRBC 0.0 0.0 - 0.0 % [facility] ([place]) NRBC abs 0.00 0.00 - 0.00 K/cumm [facility] ([place]) Blood specimen (specimen) 01/19/2017 8:36 PM CDT 01/19/2017 8:38 PM CDT us Miguel Freeman Jr., MD LAB BLOOD ORDERABL ES Final Result Performing Organization Address [facility] Co de Phone Number NILSA [facility] ([place]) 1 [facility] [place] [address] * (ABNORMAL) Urinalysis reflex to microscopic and culture (01/19/2017 8:10 PM CDT) Color, ur Yellow Yellow [facility] ([place]) Clarity, ur Clear Clear [facility] ([place]) Specific gravity, ur 1.030 1.003 - 1.030 [facility] ([place]) Comment:Normal Ranges: 1.003 -1.030 pH, ur 5.5 4.5 - 8.0 [facility] ([place]) Comment:Normal ranges: 4.5-8 .0 Protein, ur ql Negative Negative mg/dL [facility] ([place]) Glucose, ur ql >=1000(A) Negative mg/dL [facility] ([place]) Ketones, ur Negative Negative [facility] ([place]) Bilirubin, ur Negative Negative [facility] ([place]) Blood, ur Negative Negative [facility] ([place]) Urobilinogen, ur 0.2 0.2 - 1.0 [facility] ([place]) Comment:Normal Ranges: 0.2-1 .0 EU/dL Nitrites, ur Negative Negative [facility] ([place]) Leukocyte esterase, ur Negative Negative [facility] ([place]) Urine 01/19/2017 8:10 PM CDT 01/19/2017 8:20 PM CDT us Miguel Freeman Jr., MD LAB MICROBIOLOGY - GENERAL ORDERABLES Final Result [facility] ([place]) 1 [facility] [place] [address] documented in this encounter Visit Diagnoses Not on filedocumented in this encounter
--- OUTSIDE RECORDS SUMMARY | 2024-07-04 04:25 | XMS_ITS | Encounter Summary ---
Author Organization [facility] Medical [facility] Address [address] [place] [address] Care Team Providers Care Dynamite Packing Machine Operator Name Role Phone Cherelle Corcoran MD Primary Care Pro vider Encounter Details Date Type Department Care Team (Late st Contact Info) Description 10/05/2019 10:15 AM CDT Office Visit [facility] Vascular and Vein Surgery [address] [place] [address] Guy Walsh MD [address] [place] [address] [address] [place] [address] Other diabetic neurological complication associated with type 2 diabetes mellitus (CMS/HCC) (Primary Dx); Diabetic ulcer of toe of right foot associated with type 2 diabetes mellitus, with necrosis of bone (CMS/HCC); Type 2 diabetes mellitus with foot ulcer, without long-term current use of insulin (CMS/HCC) Social History Tobacco Use Types Packs/Day Years Used Date Smoking Tobacco: Never Smokeless Tobacco: Never Alcohol Use Standard Drinks/Week Comments Not Currently 0 (1 standard drink = 0.6 oz pur e alcohol) PHQ-2 Answer Date Recorded PHQ-2 Score 0 08/30/2019 Comments No Sex and Gender Information Value Date Recorded Sex Assigned at Not on file Legal Sex Female 9:03 AM PROFILER Gender Identity Female 02/08/2020 6:39 PM CDT Sexual Orientation Not on file COVID-19 Exposure Response Date Recorded In the last month, have you been in contact with someone who was confirmed or suspected to have Coronavirus / COVID-19? No / Unsure 09/15/2019 2:02 PM CDT documented as of this encounter Last Filed Vital Signs Vital Sign Reading Time Taken Comments Blood Pressure 134/70 10/05/2019 10:35 AM CDT Pulse 86 10/05/2019 10:35 AM CDT Temperature 36.4 ??C (97.5 ??F) 10/05/2019 10:35 AM C DT Respiratory Rate - - Oxygen Saturation - - Inhaled Oxygen Concentration - - Weight - - Height - - Body Mass Index - - documented in this encounter Ordered Prescriptions Prescription Sig Dispense Quantity Refills Last Filled Start Date End Date sulfamethoxazole-t rimethoprim (BACTRIM) 400-80 mg per tablet Take 1 tablet by mouth 2 (two) times a day 60 tablet 10/05/2019 11/04/2019 documented in this encounter Progress Notes * Guy Walsh MD - 10/05/2019 10:15 AM CDT Subjective/Objective Patient ID: Barbara Chakraborty is a 68 y.o. female. Chief Complaint Ulcerations toes right foot No chief complaint on file. HPI The patient is a 68-year-old woman with history of diabetes and diabetic neuropathy who has developed superficial ulcerations over the plantar surface of the right 1st toe and also over the lateral aspect of the right 4th toe. These have been present for several months and have been stable. The patient recently underwent an MRI at [facility] which shows evidence of osteomyelitis in the right 4th toe and also in the tip of the right 1st toe. the patient has had no fevers chills or sweats. She has had no significant drainage from the ulcerations of the right foot. Current Outpatient Medications: ??? amoxicillin-clavulanate (Augmentin) 875-125 [...] on phone: None Gets together: None Attends zoroastrian service: None Active member of club or [...] diarrhea. Genitourinary: No dysuria. No hematuria. Extremities: Ulcerations toes right foot Musculoskeletal: No joint pains. No back pain. [...] gallops appreciated. Extremities: Superficial ulceration plantar surface of right 1st toe measuring 1 cm in diameter. Small ulceration lateral aspect right 4th toe measuring 5 mm in diameter. No significant edema or erythema in either these toes Abdominal: Soft, nontender, no masses. Normal bowel sounds. Musculoskeletal: Normal range of motion. Neurologic: Cranial nerves 2-12 intact. Strength and sensation intact bilaterally. Skin: Warm and dry. No rashes. No discoloration. Hematologic/Lymphatic: No adenopathy, no ecchymoses. Psychiatric: Normal mood and affect. Behavior normal.Judgment normal. IMAGING RESULTS MRI report was visualized and reviewed by me. The patient has osteomyelitis in the right 4th toe aswell as in the distal phalanx of the right 1st toe ASSESSMENT AND PLAN Assessment/Plan Diagnoses and all orders for this visit: Other diabetic neurological complication associated with type 2 diabetes mellitus ([facility]/HCC) (Primary) Diabetic ulcer of toe of right foot associated with type 2 diabetes mellitus, with necrosis of bone(CMS/HCC) Type 2 diabetes mellitus with foot ulcer, without long-term current use of insulin ([facility]/HCC) Other orders - sulfamethoxazole-trimethoprim (BACTRIM) 400-80 mg per tablet; Take 1 tablet by mouth 2 (two) times a day impression 1. Diabetic ulcers toes of right foot. These ulcers are stable. There is no significant edema or erythema. There is no significant drainage. The patient does have underlying osteomyelitis which can be treated with oral antibiotic therapy. I also informed the patient that if the therapy was not successful she may require toe amputations. Plan: Continue dressing changes as well as oral antibiotic therapy. Follow-up in 1 month Impression 2. Diabetic neuropathy. Patient has neuropathy of both lower extremities. This is stable. Plan: Diabetic management as per primary care provider Impression 3. Diabetes. The patient's diabetes currently under good control Plan: Diabetic management as per primary care provider documented in this encounter Plan of Treatment Upcoming Encounters Date Type Department Care Team (Latest Contact Info) Description 07/13/2024 9:00 AM PROFILER Hospital Encounter [facility] GI Lab [address] [place] [address] Jaya Grier MD [address] [place] [address] DR GAINES [address] [place] [address] 07/13/2024 9:00 AM PROFILER - 07/13/2024 9:30 AM PROFILER Surgery [facility] GI Lab [address] [place] [address] Jaya Grier MD [address] [place] [address] DR GAINES [address] [place] [address] ESOPHAGOGASTRODUODENOSCOPY Scheduled Procedures Name Priority Associated Diagnoses Date/Ti sc ESOPHAGOGASTRODUODENOSCOPY Anemia, unspecified type Gastritis without bleeding, unspecified chronicity, unspecified gastritis type 07/13/2024 9:00 AM PROFILER COLONOSCOPY Iron deficiency anemia due to chronic blood loss documented as of this encounter Visit Diagnoses Diagnosis Other diabetic neurological complication associated with type 2 diabetes mellitus (HCC)- Primary Diabetic ulcer of toe of right foot associated with type 2 diabetes mellitus, with necrosis of bone (HCC) Type 2 diabetes mellitus with foot ulcer, without long-term current use of insulin (HCC) Anemia, unspecified type Gastritis without bleeding, unspecified chronicity, unspecified gastritis type documented in this encounter Care Teams Dynamite Packing Machine Operator Relationship Specialty Start Date End Date Cherelle Corcoran MD PCP - General Family Medicine 08/30/19 documented as of this encounter
--- OUTSIDE RECORDS SUMMARY | 2024-07-04 04:25 | XMS_ITS | Encounter Summary ---
Author Organization [facility] Care Team Providers Care Water/Wastewater Engineer Name Role Phone Cherelle Corcoran MD Primary Care Pro vider Encounter Details Date Type Department Care Team (Latest Contact Info) Description 09/06/2019 Travel Social History Tobacco Use Types Packs/Day Years Used Date Smoking Tobacco: Never Smokeless Tobacco: Never Alcohol Use Standard Drinks/Week Comments Not Currently 0 (1 standard drink = 0.6 oz pur e alcohol) PHQ-2 Answer Date Recorded PHQ-2 Score 0 08/30/2019 Comments No Sex and Gender Information Value Date Recorded Sex Assigned at Not on file Legal Sex Female 9:03 AM POT ROOM TAPPER Gender Identity Female 02/08/2020 6:39 PM CDT Sexual Orientation Not on file COVID-19 Exposure Response Date Recorded In the last month, have you been in contact with someone who was confirmed or suspected to have Coronavirus / COVID-19? No / Unsure 09/06/2019 4:24 PM CDT documented as of this encounter Plan of Treatment Upcoming Encounters Date Type Department Care Team (Latest Contact Info) Description 07/13/2024 9:00 AM POT ROOM TAPPER Hospital Encounter [facility] GI Lab [address] [place] [address] Jaya Grier MD [facility] [address] [address] 07/13/2024 9:00 AM POT ROOM TAPPER - 07/13/2024 9:30 AM POT ROOM TAPPER Surgery [facility] GI Lab [address] [place] [address] Jaya Grier MD [address] [address] ESOPHAGOGASTRODUODENOSCOPY Scheduled Procedures Name Priority Associated Diagnoses Date/Ti me ESOPHAGOGASTRODUODENOSCOPY Anemia, unspecified type Gastritis without bleeding, unspecified chronicity, unspecified gastritis type 07/13/2024 9:00 AM POT ROOM TAPPER COLONOSCOPY Iron deficiency anemia due to chronic blood loss documented as of this encounter Visit Diagnoses Not on filedocumented in this encounter Care Teams Water/Wastewater Engineer Relationship Specialty Start Date End Date Cherelle Corcoran MD PCP - General Family Medicine 08/30/19 documented as of this encounter
--- OUTSIDE RECORDS SUMMARY | 2024-07-04 04:25 | XMS_ITS | Encounter Summary ---
Author Organization [facility] Address [address] [facility] [address] [place] [address] Care Team Providers Care Business Analyst Name Role Phone Cherelle Corcoran MD Primary Care Pro vider Encounter Details Date Type Department Care Team (Late st Contact Info) Description 09/23/2019 Orders Only [facility] Vascular and Vein Surgery [address] [facility] [address] [place] [address] Guy Walsh MD [address] [facility] [address] [place], [place] [id number] Diabetic ulcer of toe of right foot [...] on file Legal Sex Female 9:03 AM UNDER BASTER Gender Identity Female 02/08/2020 6:39 PM CDT [...] (Latest Contact Info) Description 07/13/2024 9:00 AM UNDER BASTER Hospital Encounter [facility] [address] [place] [address] Jaya Grier MD [address] [facility] [address] [place] [address] 07/13/2024 9:00 AM UNDER BASTER - 07/13/2024 9:30 AM UNDER BASTER Surgery [facility] [address] [place] [address] Jaya Grier MD [address] [facility] [address] [place] [address] ESOPHAGOGASTRODUODENOSCOPY Scheduled Procedures Name Priority Associated Diagnoses Date/Ti me ESOPHAGOGASTRODUODENOSCOPY Anemia, unspecified type Gastritis without bleeding, unspecified chronicity, unspecified gastritis type 07/13/2024 9:00 AM UNDER BASTER COLONOSCOPY Iron deficiency anemia due to chronic blood loss documented as of this encounter Visit Diagnoses Diagnosis Diabetic ulcer of toe of right foot associated with type 2 diabetes mellitus, with necrosis of bone (HCC)- Primary Anemia, unspecified type Gastritis without bleeding, unspecified chronicity, unspecified gastritis type documented in this encounter Care Teams Business Analyst Relationship Specialty Start Date End Date Cherelle Corcoran MD PCP - General Family Medicine 08/30/19 documented as of this encounter
--- OUTSIDE RECORDS SUMMARY | 2024-07-04 04:25 | XMS_ITS | Encounter Summary ---
Author Organization [facility] Address [address] [place] [address] Care Team Providers Care Hand Braille Transcriber Name Role Phone Unavailable Primary Care Provider Unavailabl e Reason for Visit * Reason Comments Rash Encounter Details Date Type Department Care Team (Late st Contact Info) Description 03/17/2018 1:28 PM CDT - 03/17/2018 2:40 PM CDT Emergency [facility] Emergency Department [address] [id number] Gretchen Cosme MD [address] [place] [address] [place] [address] Tinea capitis (Primary Dx) Discharge Disposition: Discharge to home or self care Social History Tobacco Use Types Packs/Day Years Used Date Smoking Tobacco: Never Smokeless Tobacco: Never Comments No Sex and Gender Information Value Date Recorded Sex Assigned at Not on file Legal Sex Female 9:03 AM EYELET OPERATOR Gender Identity Female 02/08/2020 6:39 PM CDT Sexual Orientation Not on file documented as of this encounter Last Filed Vital Signs Vital Sign Reading Time Taken Comments Blood Pressure 122/68 03/17/2018 1:49 PM CDT Pulse 82 03/17/2018 1:49 PM CDT Temperature 36.2 ??C (97.1 ??F) 03/17/2018 1:46 PM CD T Respiratory Rate 18 03/17/2018 1:49 PM CDT Oxygen Saturation 96% 03/17/2018 1:49 PM CDT Inhaled Oxygen Concentration - - Weight 63.5 kg (140 lb) 03/17/2018 1:46 PM CDT Height 157.5 cm (5' 2 ) 03/17/2018 1:46 PM CDT Body Mass Index 25.61 03/17/2018 1:46 PM CDT documented in this encounter Discharge Instructions * Discharge Instructions* Gretchen Cosme MD - 03/17/2018 2:21 PM CDT Meds as prescribed. Read the handout. Establish and follow up with the primary care doctor. See above. Return to the ER with any concerns or with worsening symptoms. * Attachments The following attachments cannot be sent through Care Everywhere. * Tinea Capitis (AfterCare(R) Instructions(ER/ED)) ([place]) * Tinea Capitis (General Information) ([place]) documented in this encounter Medications at Time of Discharge terbinafine (LamiSIL) 250 mg tablet Take 1 tablet (250 mg total) by mouth daily. 45 tablet 03/17/2018 04/28/2018 insulin syringe-needle U-100 (BD Insulin Syringe Ultra-Fine) 1 mL 31 gauge x 5/16 syringe 3 times a day 09/12/2017 01/17/2020 pen needle, diabetic 32 gauge x 3/16 needle Once a day 08/19/2017 01/17/2020 syringe with needle, insulin (INSULIN SYRINGE-NEEDLE U-100 MISC) 3 times a day 09/12/2017 11/30/2022 documented as of this encounter Ordered Prescriptions Prescription Sig Dispense Quantity Refills Last Filled Start Date End Date terbinafine (LamiSIL) 250 mg tablet Take 1 tablet (250 mg total) by mouth daily. 45 tablet 03/17/2018 04/28/2018 documented in this encounter Discharge Disposition Disposition Code Departure Means Destination Discharge to home or self care documented in this encounter ED Notes * Gretchen Cosme MD - 03/17/2018 2:08 PM CDT Chief Complaint Patient presents with ??? Rash 1:59 PM 03/17/2018 Barbara Chakraborty is a 67 y/o female with a PMHx of DMII who presents to the ED due toscalp rash which began 1 week ago. Pt reports that the rash is pruritic and painful. She reports that she wears wigs. Denies bleeding or drainage. She denies any family members or friends with similar symptoms. History reviewed. No pertinent past medical history. History reviewed. No pertinent surgical history. HOME MEDICATIONS : terbinafine (LamiSIL) 250 mg tablet No Known Allergies Review of Systems Constitutional: Negative for chills, fatigue and fever. HENT: Negative for congestion, ear pain, rhinorrhea, sneezing and sore throat. Respiratory: Negative for cough, shortness of breath and wheezing. Cardiovascular: Negative for chest pain and palpitations. Gastrointestinal: Negative for abdominal pain, constipation, diarrhea, nausea and vomiting. Genitourinary: Negative for dysuria and frequency. Musculoskeletal: Negative for arthralgias, back pain, myalgias and neck pain. Skin: Positive for rash. Negative for color change, pallor and wound. Neurological: Negative for dizziness, syncope, weakness, light-headedness and headaches. All other systems reviewed and are negative. Physical Exam Constitutional: She is oriented to person, place, and time. She appears well- developed and well-nourished. No distress. HENT: Head: Normocephalic and atraumatic. Eyes: Pupils are equal, round, and reactive to light. Conjunctivae and EOM are normal. Neck: Normal range of motion. Neck supple. Cardiovascular: Normal rate, regular rhythm, normal heart sounds and intact distal pulses. Exam reveals no gallop and no friction rub. No murmur heard. Pulmonary/Chest: Effort normal and breath sounds normal. No respiratory distress. She has no wheezes. She has no rales. Abdominal: Soft. Bowel sounds are normal. She exhibits no distension. There is no tenderness. Musculoskeletal: Normal range of motion. Neurological: She is alert and oriented to person, place, and time. No cranial nerve deficit. ADRIENNE Equal grasp Moves legs Push/pull equal Skin: Skin is warm and dry. Capillary refill takes less than 2 seconds. 4 2-3 mm discrete round/oval white crusty patches within the scalp along sagittal suture. These do not easily flake off. Psychiatric: She has a normal mood and affect. Her behavior is normal. Nursing note and vitals reviewed. Vitals: 03/17/18 1346 03/17/18 1349 BP: 122/68 Pulse: 82 Resp: 18 Temp: 36.2 ??C (97.1 ??F) SpO2: 96% Weight: 63.5 kg (140 lb) Height: 157.5 cm (5' 2 ) Labs Reviewed - No data to display No orders to display Procedures MDM IMPRESSION: 1. Tinea capitis ATTESTATIONS: This note is prepared by Shauna Vernon, acting as a scribe for Dr. Gretchen Cosme MD. I electronically signed this note at 3:12 PM on 03/17/2018. I, Dr. Gretchen Cosme MD, have personally performed the services described in the documentation , reviewed the documentation, as recorded by the scribe in my presence, and it accurately and completely records my words and actions. Gretchen Cosme MD 03/17/18 1512 * Sarahy Smith RN - 03/17/2018 1:49 PM CDT Pt presents with complaints of fungus on scalp pt states it started about 1 week ago. documented in this encounter Plan of Treatment Upcoming Encounters Date Type Department Care Team (Latest Contact Info) Description 07/13/2024 9:00 AM EYELET OPERATOR Hospital Encounter [facility] GI Lab [address] [place] [address] Jaya Grier MD [address] [place] [address] 07/13/2024 9:00 AM EYELET OPERATOR - 07/13/2024 9:30 AM EYELET OPERATOR Surgery [facility] [address] [place] [address] Jaya Grier MD [address] [place] [address] [address] [place] [address] ESOPHAGOGASTRODUODENOSCOPY Scheduled Procedures Name Priority Associated Diagnoses Date/Ti me ESOPHAGOGASTRODUODENOSCOPY Anemia, unspecified type Gastritis without bleeding, unspecified chronicity, unspecified gastritis type 07/13/2024 9:00 AM EYELET OPERATOR COLONOSCOPY Iron deficiency anemia due to chronic blood loss documented as of this encounter Visit Diagnoses Diagnosis Tinea capitis- Primary Dermatophytosis of scalp and vidal Anemia, unspecified type Gastritis without bleeding, unspecified chronicity, unspecified gastritis type documented in this encounter
--- OUTSIDE RECORDS SUMMARY | 2024-07-04 04:25 | XMS_ITS | Encounter Summary ---
Author Organization [facility] Address [address] [place] [address] Phone Care Team Providers Care Ladies Locker Room Attendant Name Role Phone Cherelle Corcoran MD Primary Care Pro vider Encounter Details Date Type Department Care Team (Late st Contact Info) Description 10/22/2019 Plan of Care Documentation [facility] [address] [address] [address] [place] [address] Social History Tobacco Use Types [...] 07/13/2024 9:00 AM INSERTER OPERATOR Hospital Encounter [facility] [address] [place] [address] Jaya Grier MD [facility] [address] [address] 07/13/2024 9:00 AM INSERTER OPERATOR - 07/13/2024 9:30 AM INSERTER OPERATOR Surgery [facility] [address] [place] [address] Jaya Grier MD [address] [address] ESOPHAGOGASTRODUODENOSCOPY Scheduled Procedures Name Priority Associated Diagnoses Date/Ti ca ESOPHAGOGASTRODUODENOSCOPY Anemia, unspecified type Gastritis without bleeding, unspecified chronicity, unspecified gastritis type 07/13/2024 9:00 AM INSERTER OPERATOR COLONOSCOPY Iron deficiency anemia due to chronic blood loss documented as of this encounter Visit Diagnoses Not on filedocumented in this encounter Care Teams Ladies Locker Room Attendant Relationship Specialty Start Date End Date Cherelle Corcoran MD PCP - General Family Medicine 08/30/19 documented as of this encounter
--- OUTSIDE RECORDS SUMMARY | 2024-07-04 04:25 | XMS_ITS | Encounter Summary ---
Author Organization [facility] Address [address] [facility] [address] [place] [address] Care Team Providers Care Agronomy Research Manager Name Role Phone Cherelle Corcoran MD Primary Care Pro vider Reason for Visit * Reason Comments Follow-up Encounter Details Date Type Department Care Team (Latest Contact Info) Description 09/06/2019 4:15 PM CDT Office Visit [facility] Primary Care [address] [facility] [address] [place] [address] Cherelle Corcoran MD [address] [place] [address] Diabetic ulcer of toe of right foot associated with type 2 diabetes mellitus, with necrosis of bone (CMS/HCC) (Primary Dx); Uncontrolled type 2 diabetes mellitus with hyperglycemia (CMS/HCC) Social History Tobacco Use Types Packs/Day Years Used Date Smoking Tobacco: Never Smokeless Tobacco: Never Alcohol Use Standard Drinks/Week Comments Not Currently 0 (1 standard drink = 0.6 oz pur e alcohol) PHQ-2 Answer Date Recorded PHQ-2 Score 0 08/30/2019 Comments No Sex and Gender Information Value Date Recorded Sex Assigned at Not on file Legal Sex Female 9:03 AM BLIND LACER Gender Identity Female 02/08/2020 6:39 PM CDT Sexual Orientation Not on file COVID-19 Exposure Response Date Recorded In the last month, have you been in contact with someone who was confirmed or suspected to have Coronavirus / COVID-19? No / Unsure 09/06/2019 4:24 PM CDT documented as of this encounter Last Filed Vital Signs Vital Sign Reading Time Taken Comments Blood Pressure 132/72 09/06/2019 4:46 PM CDT Pulse 81 09/06/2019 4:46 PM CDT Temperature 36.8 ??C (98.3 ??F) 09/06/2019 4:46 PM CD T Respiratory Rate 16 09/06/2019 4:46 PM CDT Oxygen Saturation 97% 09/06/2019 4:46 PM CDT Inhaled Oxygen Concentration - - Weight 59 kg (130 lb) 09/06/2019 4:46 PM CDT Height 157.5 cm (5' 2 ) 09/06/2019 4:46 PM CDT Body Mass Index 23.78 09/06/2019 4:46 PM CDT documented in this encounter Ordered Prescriptions Prescription Sig Dispense Quantity Refills Last Filled Start Date End Date Victoza 2-Vivek 0.6 mg/0.1 mL (18 mg/3 mL) injectionIndication s:Uncontrolled type 2 diabetes mellitus with hyperglycemia (HCC) Inject 1.2 mg under the skin daily 6 mL 1 09/06/2019 0 gabapentin (NEURONTIN) 300 mg capsule Take 1 capsule (300 mg total) by mouth 3 (three) times a day 90 capsule 1 09/06/2019 0 documented in this encounter Progress Notes * Cherelle Corcoran MD - 09/06/2019 4:15 PM CDT Images from the original note were not included. Assessment/Plan: Assessment/Plan Diagnoses and all orders for this visit: Diabetic ulcer of toe of right foot associated with type 2 diabetes mellitus, with necrosis of bone(CMS/HCC) (Primary) Assessment & Plan: Following with vascular surgery Uncontrolled type 2 diabetes mellitus with hyperglycemia (CMS/HCC) Assessment & Plan: Increase victoza to 1.2mg daily Continue 24 units basaglar daily Orders: - Victoza 2-Vivek 0.6 mg/0.1 mL (18 mg/3 mL) injection; Inject 1.2 mg under the skin daily Other orders - gabapentin (NEURONTIN) 300 mg capsule; Take 1 capsule (300 mg total) by mouth 3 (three) times a day F/u if symptoms not improving or worsen. Strict return/ED precautions discussed. Subjective: Barbara Chakraborty is a 68 y.o. female here for follow up of diabetes mellitus and wound HPI Chief Complaint Patient presents with ??? Follow-up Diabetes Fasting >140, but less than 200 Has been taking victoza 0.6mg daily for over a week Foot wound Saw vascular, continued antibiotics Has follow up 09/15 Also notes cough for couple days, but no fever or shortness of breath Review of Systems Constitutional: Negative for fever. Respiratory: Positive for cough. Negative for shortness of breath. Musculoskeletal: Positive for arthralgias. Skin: Positive for wound. Objective: Vital signs were reviewed. Vitals: 09/06/19 1646 BP: 132/72 BP Location: Left arm Patient Position: Sitting Pulse: 81 Resp: 16 Temp: 36.8 ??C (98.3 ??F) TempSrc: Oral SpO2: 97% Weight: 59 kg (130 lb) Height: 157.5 cm (5' 2 ) Physical Exam Gen: NAD, comfortable, appears as stated age Eyes: no conjunctival injection, EOMI ENMT: external ears symmetric, nares patent CV: Regular rate and rhythm, no murmurs, rubs or gallops Pulm: clear to asculation bilaterally, no wheezing, rhonchi or rales, no increased work of breathing Skin: 3 separate ulcerations on plantar R great toe improved with erythema at metacarpal phalangealjoint and diffuse foot swelling, warm and dry MSK/Neuro: symmetric limb movement Psych: alert and oriented to person/place/time, appropriate judgment and insight Cherelle Corcoran MD documented in this encounter Miscellaneous Notes * Assessment & Plan Note - Cherelle Corcoran MD - 09/08/2019 4:39 PM CDTAssociated Problem(s): Type 2 diabetes mellitus with diabetic neuropathy, with long-term current use of insulin (HCC) Increase victoza to 1.2mg daily Continue 24 units basaglar daily * Assessment & Plan Note - Cherelle Corcoran MD - 09/08/2019 4:39 PM CDTAssociated Problem(s): Ulcer of toe of right foot, with fat layer exposed (HCC) (Resolved 08/28/2020) Following with vascular surgery documented in this encounter Plan of Treatment Upcoming Encounters Date Type Department Care Team (Latest Contact Info) Description 07/13/2024 9:00 AM BLIND LACER Hospital Encounter [facility] [address] [place] [address] Jaya Grier MD [address] [place] [address] [address] [place] [address] 07/13/2024 9:00 AM BLIND LACER - 07/13/2024 9:30 AM BLIND LACER Surgery [facility] [address] [place] [address] Jaya Grier MD [address] [place] [address] [address] [place] [address] ESOPHAGOGASTRODUODENOSCOPY Scheduled Procedures Name Priority Associated Diagnoses Date/Ti va ESOPHAGOGASTRODUODENOSCOPY Anemia, unspecified type Gastritis without bleeding, unspecified chronicity, unspecified gastritis type 07/13/2024 9:00 AM BLIND LACER COLONOSCOPY Iron deficiency anemia due to chronic blood loss documented as of this encounter Visit Diagnoses Diagnosis Diabetic ulcer of toe of right foot associated with type 2 diabetes mellitus, with necrosis of bone (HCC)- Primary Uncontrolled type 2 diabetes mellitus with hyperglycemia (HCC) Anemia, unspecified type Gastritis without bleeding, unspecified chronicity, unspecified gastritis type documented in this encounter Discontinued Medications Medication Sig Discontinue Reason Start Date End Da te gabapentin (NEURONTIN) 100 mg capsule Take by mouth 3 (three) times a day Reorder 08/28/2019 09/06/2019 Victoza 2-Vivek 0.6 mg/0.1 mL (18 mg/3 mL) injectionIndications:Uncon trolled type 2 diabetes mellitus with hyperglycemia (HCC) Inject 0.6 mg under the skin daily Reorder 08/30/2019 09/06/2019 documented as of this encounter Care Teams Agronomy Research Manager Relationship Specialty Start Date End Date Cherelle Corcoran MD PCP - General Family Medicine 08/30/19 documented as of this encounter
--- OUTSIDE RECORDS SUMMARY | 2024-07-04 04:25 | XMS_ITS | Encounter Summary ---
Author Organization [facility] Address [address] [place] [address] Care Team Providers Care Rn Med Surg Name Role Phone Cherelle Corcoran MD Primary Care Pro vider Encounter Details Date Type Department Care Team (Late st Contact Info) Description 10/24/[address] [facility] Primary Care [address] [facility] [address] [place] [address] Becky Thurston Social History Tobacco Use Types Packs/Day Years Used Date Smoking Tobacco: Never Smokeless Tobacco: Never Alcohol Use Standard Drinks/Week Comments Not Currently 0 (1 standard drink = 0.6 oz pur e alcohol) PHQ-2 Answer Date Recorded PHQ-2 Score 0 08/30/2019 Comments No Sex and Gender Information Value Date Recorded Sex Assigned at Not on file Legal Sex Female 9:03 AM SKEIN YARN DYER Gender Identity Female 02/08/2020 6:39 PM CDT Sexual Orientation Not on file documented as of this encounter Miscellaneous Notes * Telephone Encounter - Natacha London MA - 11/01/2019 9:20 AM CDT Left detailed message on [employer]. * Telephone Encounter - Cherelle Corcoran MD - 11/01/2019 8:20 AM CDT Ok. * Telephone Encounter - Natacha London MA - 11/01/2019 8:02 AM CDT Barb from home health called stating she will be seeing pt this afternoon. She consulted wound care regarding pt dry skin and she was told to use Atrac- tain cream once daily to try area once daily. She wanted the Ok from you as well. * Telephone Encounter - Natacha London MA - 2019 4:32 PM CDT No answer, left message to return call Thursday. * Telephone Encounter - Cherelle Corcoran MD - 2019 4:20 PM CDT Yes I will follow with patient. Vascular recommending daily wound changes. Ok for polymim. Thanks * Telephone Encounter - Romelia Taylor - 2019 11:35 AM CDT Barb @ [facility] Home Health calls again in re/Dr Corcoran following home care orders for patient. Pt also has sore on toe, so asking for wound care orders, too; RN is recommending Polymim. Patient had initial visit on 10-22-19 per Barb. Please advise on both orders. Thanks, Vianney Day cp: [phone]; OK to LM * Telephone Encounter - Becky Thurston - 10/24/2019 9:08 AM CDT Barb from homecare is calling to see if Dr. Corcoran is going to follow up with pt and they are wanting to know the wound care orders her call back number is [phone] documented in this encounter Plan of Treatment Upcoming Encounters Date Type Department Care Team (Latest Contact Info) Description 07/13/2024 9:00 AM SKEIN YARN DYER Hospital Encounter [facility] [address] [place] [address] Jaya Grier MD [address] [place] [address] [address] [place] [address] 07/13/2024 9:00 AM SKEIN YARN DYER - 07/13/2024 9:30 AM SKEIN YARN DYER Surgery [facility] [address] [place] [address] Jaya Grier MD [facility] [facility] [address] [place] [address] ESOPHAGOGASTRODUODENOSCOPY Scheduled Procedures Name Priority Associated Diagnoses Date/Ti me ESOPHAGOGASTRODUODENOSCOPY Anemia, unspecified type Gastritis without bleeding, unspecified chronicity, unspecified gastritis type 07/13/2024 9:00 AM SKEIN YARN DYER COLONOSCOPY Iron deficiency anemia due to chronic blood loss documented as of this encounter Visit Diagnoses Not on filedocumented in this encounter Care Teams Rn Med Surg Relationship Specialty Start Date End Date Cherelle Corcoran MD PCP - General Family Medicine 08/30/19 documented as of this encounter
--- OUTSIDE RECORDS SUMMARY | 2024-07-04 04:26 | XMS_ITS | Encounter Summary ---
Author Organization [facility] Address [address] [place] [address] Care Team Providers Care Database Engineer Name Role Phone Unavailable Primary Care Provider Unavailabl e Encounter Details Date Type Department Care Team (Late st Contact Info) Description 09/09/2007 7:03 PM CDT - 09/10/2007 12:12 AM CDT Hospital Encounter [facility] MD [address] [facility] [place] [address] Alla Miranda MD [address] [place] [address] Social History Tobacco Use Types Packs/Day Years Used Date Smoking Tobacco: Never Assessed Comments Unknown Sex and Gender Information Value Date Recorded Sex Assigned at Not on file Legal Sex Female 9:03 AM CUFF PRESSER Gender Identity Female 02/08/2020 6:39 PM CDT Sexual Orientation Not on file documented as of this encounter Plan of Treatment Upcoming Encounters Date Type Department Care Team (Latest Contact Info) Description 07/13/2024 9:00 AM CUFF PRESSER Hospital Encounter [facility] [address] [place] [address] Jaya Grier MD [address] [facility] [address] [address] 07/13/2024 9:00 AM CUFF PRESSER - 07/13/2024 9:30 AM CUFF PRESSER Surgery [facility] [address] [place] [address] Jaya Grier MD [address] [address] ESOPHAGOGASTRODUODENOSCOPY Scheduled Procedures Name Priority Associated Diagnoses Date/Ti me ESOPHAGOGASTRODUODENOSCOPY Anemia, unspecified type Gastritis without bleeding, unspecified chronicity, unspecified gastritis type 07/13/2024 9:00 AM CUFF PRESSER COLONOSCOPY Iron deficiency anemia due to chronic blood loss documented as of this encounter Visit Diagnoses Not on filedocumented in this encounter
--- OUTSIDE RECORDS SUMMARY | 2024-07-04 04:26 | XMS_ITS | Encounter Summary ---
Author Organization [facility] Healthcare Address [address] [place] [address] Care Team Providers Care Sap Business Intelligence Consultant Name Role Phone Unavailable Primary Care Provider Unavailabl e Encounter Details Date Type Department Care Team (Late st Contact Info) Description 10/15/2013 8:52 PM CDT - 10/15/2013 11:59 PM CDT Hospital Encounter [facility] CLINCONV Adverse effect of drug, medicinal and biological substance; Drug or medicinal substance causing adverse effect in therapeutic use Social History Tobacco Use Types Packs/Day Years Used Date Smoking Tobacco: Never Assessed Comments Unknown Sex and Gender Information Value Date Recorded Sex Assigned at Not on file Legal Sex Female 9:03 AM EFFICIENCY ANALYST Gender Identity Female 02/08/2020 6:39 PM CDT Sexual Orientation Not on file documented as of this encounter Plan of Treatment Upcoming Encounters Date Type Department Care Team (Latest Contact Info) Description 07/13/2024 9:00 AM EFFICIENCY ANALYST Hospital Encounter [facility] GI Lab [address] [place] [address] Jaya Grier MD [address] [place] [address] 07/13/2024 9:00 AM EFFICIENCY ANALYST - 07/13/2024 9:30 AM EFFICIENCY ANALYST Surgery [facility] GI Lab [address] [place] [address] Jaya Grier MD [address] [address] ESOPHAGOGASTRODUODENOSCOPY Scheduled Procedures Name Priority Associated Diagnoses Date/Ti me ESOPHAGOGASTRODUODENOSCOPY Anemia, unspecified type Gastritis without bleeding, unspecified chronicity, unspecified gastritis type 07/13/2024 9:00 AM EFFICIENCY ANALYST COLONOSCOPY Iron deficiency anemia due to chronic blood loss documented as of this encounter Visit Diagnoses Diagnosis Adverse effect of drug, medicinal and biological substance Drug or medicinal substance causing adverse effect in therapeutic use Unspecified adverse effect of unspecified drug, medicinal and biological substance Anemia, unspecified type Gastritis without bleeding, unspecified chronicity, unspecified gastritis type documented in this encounter
--- OUTSIDE RECORDS SUMMARY | 2024-07-04 04:26 | XMS_ITS | Encounter Summary ---
Author Organization [facility] Healthcare Address [address] [place] [address] Care Team Providers Care Branch Service Specialist Name Role Phone Unavailable Primary Care Provider Unavailabl e Encounter Details Date Type Department Care Team (Late st Contact Info) Description 09/21/2008 10:48 AM CDT - 09/21/2008 11:59 PM CDT Hospital Encounter [facility] Alla Varner MD [address] [place] [address] Routine general medical examination at a health care facility; Type 2 or unspecified type diabetes mellitus Social History Tobacco Use Types Packs/Day Years Used Date Smoking Tobacco: Never Assessed Comments Unknown Sex and Gender Information Value Date Recorded Sex Assigned at Not on file Legal Sex Female 9:03 AM MARKET GARDEN WORKER Gender Identity Female 02/08/2020 6:39 PM CDT Sexual Orientation Not on file documented as of this encounter Plan of Treatment Upcoming Encounters Date Type Department Care Team (Latest Contact Info) Description 07/13/2024 9:00 AM MARKET GARDEN WORKER Hospital Encounter [facility] GI Lab [address] [place] [address] Jaya Grier MD [address] [address] 07/13/2024 9:00 AM MARKET GARDEN WORKER - 07/13/2024 9:30 AM MARKET GARDEN WORKER Surgery [facility] GI Lab [address] [place] [address] Jaya Grier MD [address] [facility] [address] [address] ESOPHAGOGASTRODUODENOSCOPY Scheduled Procedures Name Priority Associated Diagnoses Date/Ti me ESOPHAGOGASTRODUODENOSCOPY Anemia, unspecified type Gastritis without bleeding, unspecified chronicity, unspecified gastritis type 07/13/2024 9:00 AM MARKET GARDEN WORKER COLONOSCOPY Iron deficiency anemia due to chronic blood loss documented as of this encounter Visit Diagnoses Diagnosis Routine general medical examination at a health care facility Type 2 or unspecified type diabetes mellitus Anemia, unspecified type Gastritis without bleeding, unspecified chronicity, unspecified gastritis type documented in this encounter
--- OUTSIDE RECORDS SUMMARY | 2024-07-04 04:26 | XMS_ITS | Encounter Summary ---
Author Organization [facility] Healthcare Address [address] [place] [address] Care Team Providers Care Label Coder Name Role Phone Unavailable Primary Care Provider Unavailabl e Encounter Details Date Type Department Care Team (Late st Contact Info) Description 08/02/2008 3:59 PM MOLDER FITTING - 08/02/2008 11:59 PM MOLDER FITTING Hospital Encounter [facility] CLINCONV Social History Tobacco Use Types Packs/Day Years Used Date Smoking Tobacco: Never Assessed Comments Unknown Sex and Gender Information Value Date Recorded Sex Assigned at Not on file Legal Sex Female 9:03 AM MOLDER FITTING Gender Identity Female 02/08/2020 6:39 PM CDT Sexual Orientation Not on file documented as of this encounter Plan of Treatment Upcoming Encounters Date Type Department Care Team (Latest Contact Info) Description 07/13/2024 9:00 AM MOLDER FITTING Hospital Encounter [facility] GI Lab [address] [place] [address] Jaya Grier MD [address] [facility] [place] [address] 07/13/2024 9:00 AM MOLDER FITTING - 07/13/2024 9:30 AM MOLDER FITTING Surgery [facility] GI Lab [address] [place] [address] Jaya Grier MD [address] [facility] [place] [address] ESOPHAGOGASTRODUODENOSCOPY Scheduled Procedures Name Priority Associated Diagnoses Date/Ti me ESOPHAGOGASTRODUODENOSCOPY Anemia, unspecified type Gastritis without bleeding, unspecified chronicity, unspecified gastritis type 07/13/2024 9:00 AM MOLDER FITTING COLONOSCOPY Iron deficiency anemia due to chronic blood loss documented as of this encounter Visit Diagnoses Not on filedocumented in this encounter
--- OUTSIDE RECORDS SUMMARY | 2024-07-04 04:26 | XMS_ITS | Encounter Summary ---
Author Organization [facility] Healthcare Address [address] [place] [address] Care Team Providers Care Calender Runner Name Role Phone Unavailable Primary Care Provider Unavailabl e Encounter Details Date Type Department Care Team (Late st Contact Info) Description 06/27/2010 3:46 PM LIGHT COIL WINDER - 06/27/2010 11:59 PM LIGHT COIL WINDER Hospital Encounter [facility] Social History Tobacco Use Types Packs/Day Years Used Date Smoking Tobacco: Never Assessed Comments Unknown Sex and Gender Information Value Date Recorded Sex Assigned at Not on file Legal Sex Female 9:03 AM LIGHT COIL WINDER Gender Identity Female 02/08/2020 6:39 PM CDT Sexual Orientation Not on file documented as of this encounter Plan of Treatment Upcoming Encounters Date Type Department Care Team (Latest Contact Info) Description 07/13/2024 9:00 AM LIGHT COIL WINDER Hospital Encounter [facility] GI Lab [address] [place] [address] Jaya Grier MD [facility] [facility] [address] [place] [address] 07/13/2024 9:00 AM LIGHT COIL WINDER - 07/13/2024 9:30 AM LIGHT COIL WINDER Surgery [facility] GI Lab [address] [place] [address] Jaya Grier MD [address] [facility] [place] [address] ESOPHAGOGASTRODUODENOSCOPY Scheduled Procedures Name Priority Associated Diagnoses Date/Ti me ESOPHAGOGASTRODUODENOSCOPY Anemia, unspecified type Gastritis without bleeding, unspecified chronicity, unspecified gastritis type 07/13/2024 9:00 AM LIGHT COIL WINDER COLONOSCOPY Iron deficiency anemia due to chronic blood loss documented as of this encounter Visit Diagnoses Not on filedocumented in this encounter
--- OUTSIDE RECORDS SUMMARY | 2024-07-04 04:26 | XMS_ITS | Encounter Summary ---
Author Organization [facility] Healthcare Address [address] [place] [address] Care Team Providers Care Executive Coordinator Name Role Phone Unavailable Primary Care Provider Unavailabl e Encounter Details Date Type Department Care Team (Late st Contact Info) Description 12/01/2007 9:04 PM CDT - 12/01/2007 11:59 PM CDT Hospital Encounter [facility]IN[facility] Social History Tobacco Use Types Packs/Day Years Used Date Smoking Tobacco: Never Assessed Comments Unknown Sex and Gender Information Value Date Recorded Sex Assigned at Not on file Legal Sex Female 9:03 AM DIRECTOR PAYER Gender Identity Female 02/08/2020 6:39 PM CDT Sexual Orientation Not on file documented as of this encounter Plan of Treatment Upcoming Encounters Date Type Department Care Team (Latest Contact Info) Description 07/13/2024 9:00 AM DIRECTOR PAYER Hospital Encounter [facility] GI Lab [address] [place] [address] Jaya Grier MD [address] [place] [address] 07/13/2024 9:00 AM DIRECTOR PAYER - 07/13/2024 9:30 AM DIRECTOR PAYER Surgery [facility] GI Lab [address] [place] [address] Jaya Grier MD [address] [place] [address] ESOPHAGOGASTRODUODENOSCOPY Scheduled Procedures Name Priority Associated Diagnoses Date/Ti me ESOPHAGOGASTRODUODENOSCOPY Anemia, unspecified type Gastritis without bleeding, unspecified chronicity, unspecified gastritis type 07/13/2024 9:00 AM DIRECTOR PAYER COLONOSCOPY Iron deficiency anemia due to chronic blood loss documented as of this encounter Visit Diagnoses Not on filedocumented in this encounter
--- OUTSIDE RECORDS SUMMARY | 2024-07-04 04:26 | XMS_ITS | Encounter Summary ---
Author Organization [facility] Healthcare Address [address] [place] [address] Care Team Providers Care Molded Frames Assembler Name Role Phone Unavailable Primary Care Provider Unavailabl e Encounter Details Date Type Department Care Team (Late st Contact Info) Description 09/29/2013 6:57 PM CDT - 09/29/2013 10:26 PM CDT Hospital Encounter [facility] Eagle Villareal MD [address] [place] [place] [address] Urinary tract infection; Abdominal pain Social History Tobacco Use Types Packs/Day Years Used Date Smoking Tobacco: Never Assessed Comments Unknown Sex and Gender Information Value Date Recorded Sex Assigned at Not on file Legal Sex Female 9:03 AM FINISHER PLATE Gender Identity Female 02/08/2020 6:39 PM CDT Sexual Orientation Not on file documented as of this encounter Plan of Treatment Upcoming Encounters Date Type Department Care Team (Latest Contact Info) Description 07/13/2024 9:00 AM FINISHER PLATE Hospital Encounter [facility] GI Lab [address] [place] [address] Jaya Grier MD [address] [facility] [address] [address] 07/13/2024 9:00 AM FINISHER PLATE - 07/13/2024 9:30 AM FINISHER PLATE Surgery [facility] GI Lab [address] [place] [address] Jaya Grier MD [address] [place] [address] ESOPHAGOGASTRODUODENOSCOPY Scheduled Procedures Name Priority Associated Diagnoses Date/Ti me ESOPHAGOGASTRODUODENOSCOPY Anemia, unspecified type Gastritis without bleeding, unspecified chronicity, unspecified gastritis type 07/13/2024 9:00 AM FINISHER PLATE COLONOSCOPY Iron deficiency anemia due to chronic blood loss documented as of this encounter Procedures Procedure Name Priority Date/Time Associated Diagnosis Comments DISCHARGE CUMULATIVE SUMMARY ADDENDUM Routine 10/03/2013 12:28 AM CDT RENAL COMPUTED TOMOGRAPHY (CT) WITHOUT CONTRAST, STONE PROTOCOL Routine 09/29/2013 9:49 PM CDT URINE MICROSCOPY Routine 09/29/2013 9:25 PM CDT URINALYSIS Routine 09/29/2013 9:25 PM CDT MICROBIOLOGY SUMMARY Routine 09/29/2013 12:00 AM CDT DISCHARGE LABORATORY CUMULATIVE REPORT Routine 09/29/2013 12:00 AM CDT documented in this encounter Results * Discharge Cumulative Summary Addendum (10/03/2013 12:28 AM CDT) 10/03/2013 12:2 8 AM CDT Narrative HISTORICAL RESULTS - 10/03/2013 12:28 AM CDT Patient No: [id number] ? [facility] Patient Name: SIXTO CHAKRABORTY ?[facility] Age: 62 YRS ?: 1950 ?Sex:F ?[address] ?? Adm Dt: 09/29/2013 ?[place] ??[id number] Created: 10/03/2013 ??0028 ?? Pt. Type: E ? Discharge Dt: 09/29/2013 ? Pathologists: Dilia Solorzano MD Admit Attend Dr: EAGLE CASIANO MD ? MICRO - URINE URINE CULTURE ? Collected: 09/29/13 2125 ? Received: 09/29/13 2205 Source: CLEAN CATCH URINE ? Started: 09/30/13 0452 ? PRELIMINARY REPORT ?10/01/13 0825 ? LESS THAN 10,000 CFU/ml MULTIPLE GRAM POSITIVE ORGANISMS ? (SENSITIVITIES NOT PERFORMED) ? FINAL REPORT ?10/02/13 0630 ? LESS THAN 10,000 CFU/ml MULTIPLE GRAM POSITIVE ORGANISMS ? (SENSITIVITIES NOT PERFORMED) ?? END OF CHART ? Page: ?? 1 us Historical Provider LAB MICROBIOLOGY - GENERA L ORDERABLES Final Result HISTORICAL RESULTS * RENAL COMPUTED TOMOGRAPHY (CT) WITHOUT CONTRAST, STONE PROTOCOL (09/29/2013 9:49 PM CDT) Anatomical Region Laterality Modality N/A Computed Tomogra phy 09/29/2013 9:49 PM CDT Narrative 09/30/2013 9:[address] [place] ??[id number] ??Acc#: ??[id number] DATE OF EXAM: ??Sep 29 2013 CLINICAL HISTORY: Left flank pain. RESULT: Serial axial images of the abdomen and pelvis obtained with no oral and no IV contrast per renal stone protocol correlated to a study dated 10/08/11 that was performed with contrast. There is no renal, ureter or bladder stone or hydronephrosis identified. On axial image #66, there is a small calcification anterior to the left psoas muscle but evident on the previous CT believed to be a calcification in the left ovarian vein. There is mild respiratory blurring limiting detail at the lung bases which otherwise appear grossly clear. The evaluation of the solid abdominal organs is limited by the lack of IV contrast. ??The abdominal aorta appears normal in caliber. ??There is fatty infiltration within the liver. ??The spleen, adrenal glands, kidneys, gallbladder and pancreas appear unremarkable. There are no dilated loops of small or large bowel, free fluid collections or enlarged lymph nodes in the abdomen or in the pelvis. ??The appendix is normal. In the central subcutaneous infraumbilical fat of the pelvis, there is a 17mm well-circumscribed smooth bordered ovoid nodule that is contiguous with the skin surface. ??This was evident on the previous study as well but has increased in size approximately 3mm. ??This may represent a sebaceous cyst but please correlate with physical exam findings. IMPRESSION: 1. NO RENAL, URETER OR BLADDER STONE OR HYDRONEPHROSIS. 2. FATTY INFILTRATION OF THE LIVER. 3. 17MM SUBCUTANEOUS NODULE CONTIGUOUS WITH THE SKIN SURFACE IN THE CENTRAL SUBCUTANEOUS FAT OF THE PELVIS BELOW THE LEVEL OF THE UMBILICUS THAT IS 3MM LARGER IN GREATEST DIMENSION THAN ON PRIOR STUDY. ??THIS MAY REPRESENT SOME FORM OF A SEBACEOUS CYST BUT PLEASE CORRELATE WITH PHYSICAL EXAM FINDINGS. COMMENT: RESULTS DISCUSSED WITH DR. CASIANO AT 2152 HOURS ON 09/29/13. Interpreting Physician: ??AUGUSTINA FELTON M.D. ??Read on: ??Sep 29 2013 11:09P Transcribed by: ??mrr ??On: Sep 30 2013 ??8:40A Approved Electronically by: ??AUGUSTINA FELTON M.D. ??on: ??Sep 30 2013 ??9:05A Ordering DR: DR EAGLE CASIANO Attending DR: DR EAGLE CASIANO Procedure Note Provider, MD Joe - 10/21/[place] [id number] Acc#: [id number] DATE OF EXAM: Sep 29 2013 CLINICAL HISTORY: Left flank pain. RESULT: Serial axial images of the abdomen and pelvis obtained with no oral andno IV contrast per renal stone protocol correlated to a study date10/08/11 that was performed with contrast. There is no renal, ureter orbladder stone or hydronephrosis identified. On axial image #66, there is asmall calcification anterior to the left psoas muscle but evident on theprevious CT believed to be a calcification in the left ovarian vein. Thereis mild respiratory blurring limiting detail at the lung bases whichotherwise appear grossly clear. The evaluation of the solid abdominalorgans is limited by the lack of IV contrast. The abdominal aorta appearsnormal in caliber. There is fatty infiltration within the liver. Thespleen, adrenal glands, kidneys, gallbladder and pancreas appearunremarkable. There are no dilated loops of small or large bowel, freefluid collections or enlarged lymph nodes in the abdomen or in the pelvis.The appendix is normal. In the central subcutaneous infraumbilical fat of the pelvis, there is a 17mm well-circumscribed smooth borderedovoid nodule that is contiguous with the skin surface. This was evidenton the previous study as well but has increased in size approximately 3mm.This may represent a sebaceous cyst but please correlate with physicalexam findings. IMPRESSION: 1. NO RENAL, URETER OR BLADDER STONE OR HYDRONEPHROSIS. 2. FATTY INFILTRATION OF THE LIVER. 3. 17MM SUBCUTANEOUS NODULE CONTIGUOUS WITH THE SKIN SURFACE IN THECENTRAL SUBCUTANEOUS FAT OF THE PELVIS BELOW THE LEVEL OF THE UMBILICUSTHAT IS 3MM LARGER IN GREATEST DIMENSION THAN ON PRIOR STUDY. THIS MAYREPRESENT SOME FORM OF A SEBACEOUS CYST BUT PLEASE CORRELATE WITH PHYSICALEXAM FINDINGS. COMMENT: RESULTS DISCUSSED WITH DR. CASIANO AT 2152 HOURS ON 09/29/13. Interpreting Physician: AUGUSTINA FELTON M.D. Read on: Sep 29 2013 11:09P Transcribed by: shannon On: Sep 30 2013 8:40A Approved Electronically by: AUGUSTINA FELTON M.D. on: Sep 30 2013 9:05A Ordering DR: DR EAGLE CASIANO Attending DR: DR EAGLE CASIANO Historical Provider IMG CT PROCEDURES Final R esult * (ABNORMAL) Urinalysis (09/29/2013 9:25 PM CDT) Color, ur YELLOW YELLOW HISTORICAL RESULTS Clarity, ur CLEAR CLEAR HISTORIC AL RESULTS Specific gravity, ur 1.028 1.003 - 1.030 gu HISTORICAL RESULTS Leukocyte esterase, ur Trace(A) NEGATIVE HISTORICAL RESULTS Nitrites, ur Negative NEGATIVE HISTORI ARIES RESULTS pH, ur 6.5 6.0 HISTORICAL RESULTS Protein, ur Negative NEGATIVE HISTORIC AL RESULTS Glucose, ur >=1000(A) NEGATIVE HISTORIC AL RESULTS Ketones, ur Negative NEGATIVE HISTORIC AL RESULTS Urobilinogen, quant, ur 0.2 0.2 - 1.0 mg/dl HISTORICAL RESULTS Bilirubin, ur Negative NEGATIVE HISTOR ICAL RESULTS U Blood Negative NEGATIVE HISTORICAL RESULTS Urine 09/29/2013 9:25 PM CDT Eagle Casiano MD LAB BLOOD ORDERABLES Final Re sult HISTORICAL RESULTS * (ABNORMAL) Urine microscopy (09/29/2013 9:25 PM CDT) WBC, ur 5 - 10(A) 0 - 2 /hpf HISTORICA L RESULTS RBC, ur 0 - 2 0 - 5 /hpf HISTORICA L RESULTS Epithelial cells, ur 0 - 2 0 - 2 /hpf HISTORICAL RESULTS Bacteria, ur Negative NEGATIVE /hpf HISTORICAL RESULTS Hyaline casts NOTSEEN 0 - 4 /lpf HISTO RICAL RESULTS Crystals, ur Negative NEGATIVE HISTORI ARIES RESULTS Yeast, ur Negative NEGATIVE HISTORICAL RESULTS Pathological casts, ur Negative NEGATIVE HISTORICAL RESULTS Urine 09/29/2013 9:25 PM CDT Eagle Casiano MD LAB BLOOD ORDERABLES Final Re sult HISTORICAL RESULTS * Microbiology Summary (09/29/2013 12:00 AM CDT) 09/29/2013 Narrative HISTORICAL RESULTS - 10/03/2013 12:30 AM CDT ? [facility] ?CLINICAL LABORATORIES ? MICROBIOLOGY REPORT PATIENT NAME: ??SIXTO CHAKRABORTY ?MED RECORD#: ??[id number] BIRTHDATE: ??1950 ?? AGE: ??62 YRS SEX: F ?PATIENT#: ? [id number] ADMITTING DR: ??EAGLE CASIANO MD ? ATTENDING DR: ??EAGLE CASIANO MD ? ACCESSION#: ?? [id number] CREATED: ??10/03/13 ?? 0028 ? ADMIT DATE: ?? 09/29/13 ? MICRO - URINE URINE CULTURE ? Collected: 09/29/132124 ? Received: 09/29/132204 Source: CLEAN CATCH URINE ? Started: 09/30/13 0452 ?10/01/13824 ? LESS THAN 10,000 CFU/ml MULTIPLE GRAM POSITIVE ORGANISMS ? (SENSITIVITIES NOT PERFORMED) ?10/02/13629 ? LESS THAN 10,000 CFU/ml MULTIPLE GRAM POSITIVE ORGANISMS ? (SENSITIVITIES NOT PERFORMED) ?? END OF CHART us Historical Provider MD LAB MICROBIOLOGY - GENERA L ORDERABLES Final Result HISTORICAL RESULTS * Discharge Laboratory Cumulative Report (09/29/2013 12:00 AM CDT) 09/29/2013 Narrative HISTORICAL RESULTS - 09/30/2013 12:35 AM CDT Patient No: [id number] ? [facility] Patient Name: SIXTO CHAKRABORTY ?[facility] Age: 62 YRS ?: 1950 ?Sex:F ?[address] )[phone] ?? Adm Dt: 09/29/2013 [place] ??[id number] Created: 09/30/2013 ??0035 ?? Pt. Type: E ? Discharge Dt: 09/29/2013 ? Pathologists: Dilia Solorzano MD Admit Attend Dr: EAGLE CASIANO MD ?URINALYSIS ?Collection Date: ?09/29/13 ?Collection Time: ?2125 ? Ref Range: ?? Units: [YELLOW] ? U COLOR ? YELLOW ??[CLEAR] ? U APPEARANCE ? CLEAR [1.003-1.030] ? U SPEC GRAVITY ? 1.028 [NEGATIVE] ?U LEUKO ESTRASE ?TRACE * [NEGATIVE] ?U NITRITE ? NEGATIVE ?? [6.0] ?U PH ? 6.5 [NEGATIVE] ?U PROTEIN ? NEGATIVE [NEGATIVE] ?U GLUCOSE ? >=1000 * [NEGATIVE] ?U KETONES ? NEGATIVE [0.2- 1.0] ?UROBILINOGEN ? 0.2 [NEGATIVE] ?U BILIRUBIN ? NEGATIVE [NEGATIVE] ?U BLOOD ? NEGATIVE ?? [0-2] ?U WBC ? 5-10 * ?? [0-5] ?U RBC ?0-2 ?? [0-2] ?U EPI CELLS ?0-2 [NEGATIVE] ?U BACTERIA ?NEGATIVE ?U YEASTS ?NEGATIVE ?? [0-4] ?U HYALINE CASTS ? NOT SEEN [NEGATIVE] ?U CRYSTALS ?NEGATIVE [NEGATIVE] ?U PATH CASTS ?NEGATIVE Footnotes and Symbols: * = Abnormal ?? END OF CHART ? Page: ?? 1 us Historical Provider MD LAB BLOOD ORDERABLES Blessing l Result HISTORICAL RESULTS documented in this encounter Visit Diagnoses Diagnosis Urinary tract infection Urinary tract infection, site not specified Abdominal pain Abdominal pain, unspecified site Anemia, unspecified type Gastritis without bleeding, unspecified chronicity, unspecified gastritis type documented in this encounter
--- OUTSIDE RECORDS SUMMARY | 2024-07-04 04:26 | XMS_ITS | Encounter Summary ---
Author Organization [facility] Healthcare Address [address] [place] [address] Care Team Providers Care Film Processing Shift Supervisor Name Role Phone Unavailable Primary Care Provider Unavailabl e Encounter Details Date Type Department Care Team (Late st Contact Info) Description 12/08/2011 1:27 PM CDT - 12/08/2011 8:40 PM CDT Hospital Encounter [facility] Edgardo Cruz MD [address] [facility] [address] Urinary tract infection; Abdominal pain Social History Tobacco Use Types Packs/Day Years Used Date Smoking Tobacco: Never Assessed Comments Unknown Sex and Gender Information Value Date Recorded Sex Assigned at Not on file Legal Sex Female 9:03 AM TELEPHOTO ENGINEER Gender Identity Female 02/08/2020 6:39 PM CDT Sexual Orientation Not on file documented as of this encounter Plan of Treatment Upcoming Encounters Date Type Department Care Team (Latest Contact Info) Description 07/13/2024 9:00 AM TELEPHOTO ENGINEER Hospital Encounter [facility] GI Lab [address] [place] [address] Jaya Grier MD [address] [facility] [address] [address] 07/13/2024 9:00 AM TELEPHOTO ENGINEER - 07/13/2024 9:30 AM TELEPHOTO ENGINEER Surgery [facility] GI Lab [address] [place] [address] Jaya Grier MD [address] [facility] [address] ESOPHAGOGASTRODUODENOSCOPY Scheduled Procedures Name Priority Associated Diagnoses Date/Ti me ESOPHAGOGASTRODUODENOSCOPY Anemia, unspecified type Gastritis without bleeding, unspecified chronicity, unspecified gastritis type 07/13/2024 9:00 AM TELEPHOTO ENGINEER COLONOSCOPY Iron deficiency anemia due to chronic blood loss documented as of this encounter Visit Diagnoses Diagnosis Urinary tract infection Urinary tract infection, site not specified Abdominal pain Abdominal pain, unspecified site Anemia, unspecified type Gastritis without bleeding, unspecified chronicity, unspecified gastritis type documented in this encounter
--- OUTSIDE RECORDS SUMMARY | 2024-07-04 04:26 | XMS_ITS | Encounter Summary ---
Author Organization [facility] Healthcare Address [address] [place] [address] Care Team Providers Care Potato Chip Fryer Name Role Phone Unavailable Primary Care Provider Unavailabl e Encounter Details Date Type Department Care Team (Late st Contact Info) Description 07/18/2010 9:15 AM STRAIGHT RULING MACHINE OPERATOR - 07/18/2010 11:59 PM STRAIGHT RULING MACHINE OPERATOR Hospital Encounter [facility] Alopecia Social History Tobacco Use Types Packs/Day Years Used Date Smoking Tobacco: Never Assessed Comments Unknown Sex and Gender Information Value Date Recorded Sex Assigned at Not on file Legal Sex Female 9:03 AM STRAIGHT RULING MACHINE OPERATOR Gender Identity Female 02/08/2020 6:39 PM CDT Sexual Orientation Not on file documented as of this encounter Plan of Treatment Upcoming Encounters Date Type Department Care Team (Latest Contact Info) Description 07/13/2024 9:00 AM STRAIGHT RULING MACHINE OPERATOR Hospital Encounter [facility] GI Lab [address] [place] [address] Jaya Grier MD [address] [facility] [address] [place] [address] 07/13/2024 9:00 AM STRAIGHT RULING MACHINE OPERATOR - 07/13/2024 9:30 AM STRAIGHT RULING MACHINE OPERATOR Surgery [facility] GI Lab [address] [place] [address] Jaya Grier MD [address] [facility] [address] [place] [address] ESOPHAGOGASTRODUODENOSCOPY Scheduled Procedures Name Priority Associated Diagnoses Date/Ti me ESOPHAGOGASTRODUODENOSCOPY Anemia, unspecified type Gastritis without bleeding, unspecified chronicity, unspecified gastritis type 07/13/2024 9:00 AM STRAIGHT RULING MACHINE OPERATOR COLONOSCOPY Iron deficiency anemia due to chronic blood loss documented as of this encounter Visit Diagnoses Diagnosis Alopecia Anemia, unspecified type Gastritis without bleeding, unspecified chronicity, unspecified gastritis type documented in this encounter
--- OUTSIDE RECORDS SUMMARY | 2024-07-04 04:26 | XMS_ITS | Encounter Summary ---
Author Organization [facility] Healthcare Address [address] [place] [address] Care Team Providers Care Sprinkling System Installer Name Role Phone Unavailable Primary Care Provider Unavailabl e Encounter Details Date Type Department Care Team (Latest Contact Info) Description 07/17/2010 10:10 AM MORTGAGE LOAN COUNSELOR - 07/17/2010 11:59 PM MORTGAGE LOAN COUNSELOR Hospital Encounter [facility] Other and unspecified hyperlipidemia Social History Tobacco Use Types Packs/Day Years Used Date Smoking Tobacco: Never Assessed Comments Unknown Sex and Gender Information Value Date Recorded Sex Assigned at Not on file Legal Sex Female 9:03 AM MORTGAGE LOAN COUNSELOR Gender Identity Female 02/08/2020 6:39 PM CDT Sexual Orientation Not on file documented as of this encounter Plan of Treatment Upcoming Encounters Date Type Department Care Team (Latest Contact Info) Description 07/13/2024 9:00 AM MORTGAGE LOAN COUNSELOR Hospital Encounter [facility] GI Lab [address] [place] [address] Jaya Grier MD [address] [facility] [place] [place] [address] 07/13/2024 9:00 AM MORTGAGE LOAN COUNSELOR - 07/13/2024 9:30 AM MORTGAGE LOAN COUNSELOR Surgery [facility] GI Lab [address] [place] [address] Jaya Grier MD [address] [place] [place] [address] ESOPHAGOGASTRODUODENOSCOPY Scheduled Procedures Name Priority Associated Diagnoses Date/Ti me ESOPHAGOGASTRODUODENOSCOPY Anemia, unspecified type Gastritis without bleeding, unspecified chronicity, unspecified gastritis type 07/13/2024 9:00 AM MORTGAGE LOAN COUNSELOR COLONOSCOPY Iron deficiency anemia due to chronic blood loss documented as of this encounter Visit Diagnoses Diagnosis Other and unspecified hyperlipidemia Anemia, unspecified type Gastritis without bleeding, unspecified chronicity, unspecified gastritis type documented in this encounter
--- OUTSIDE RECORDS SUMMARY | 2024-07-04 04:26 | XMS_ITS | Encounter Summary ---
Author Organization [facility] Healthcare Address [address] [place] [address] Care Team Providers Care Casing Runner Name Role Phone Unavailable Primary Care Provider Unavailabl e Encounter Details Date Type Department Care Team (Late st Contact Info) Description 01/07/2012 6:10 PM CDT - 01/07/2012 7:30 PM CDT Hospital Encounter [facility]id aMnning MD [address] [facility] [place] [address] Rash and other nonspecific skin eruption Social History Tobacco Use Types Packs/Day Years Used Date Smoking Tobacco: Never Assessed Comments Unknown Sex and Gender Information Value Date Recorded Sex Assigned at Not on file Legal Sex Female 9:03 AM CASING RUNNER Gender Identity Female 02/08/2020 6:39 PM CDT Sexual Orientation Not on file documented as of this encounter Plan of Treatment Upcoming Encounters Date Type Department Care Team (Latest Contact Info) Description 07/13/2024 9:00 AM CASING RUNNER Hospital Encounter [facility] GI Lab [address] [place] [address] Jaya Grier MD [address] [facility] [address] [address] 07/13/2024 9:00 AM CASING RUNNER - 07/13/2024 9:30 AM CASING RUNNER Surgery [facility] GI Lab [address] [place] [address] Jaya Grier MD [facility] [facility] [address] [place] [address] ESOPHAGOGASTRODUODENOSCOPY Scheduled Procedures Name Priority Associated Diagnoses Date/Ti me ESOPHAGOGASTRODUODENOSCOPY Anemia, unspecified type Gastritis without bleeding, unspecified chronicity, unspecified gastritis type 07/13/2024 9:00 AM CASING RUNNER COLONOSCOPY Iron deficiency anemia due to chronic blood loss documented as of this encounter Visit Diagnoses Diagnosis Rash and other nonspecific skin eruption Anemia, unspecified type Gastritis without bleeding, unspecified chronicity, unspecified gastritis type documented in this encounter
--- OUTSIDE RECORDS SUMMARY | 2024-07-04 04:26 | XMS_ITS | Encounter Summary ---
Author Organization [facility] Healthcare Address [address] [place] [address] Care Team Providers Care Qa Specialist Name Role Phone Unavailable Primary Care Provider Unavailabl e Encounter Details Date Type Department Care Team (Latest Contact Info) Description 12/28/2012 11:38 AM CDT - 12/28/2012 11:59 PM CDT Hospital Encounter [facility] Svetlana Coughlin Postmenopausal bleeding Social History Tobacco Use Types Packs/Day Years Used Date Smoking Tobacco: Never Assessed Comments Unknown Sex and Gender Information Value Date Recorded Sex Assigned at Not on file Legal Sex Female 9:03 AM POULTRY VETERINARIAN Gender Identity Female 02/08/2020 6:39 PM CDT Sexual Orientation Not on file documented as of this encounter Plan of Treatment Upcoming Encounters Date Type Department Care Team (Latest Contact Info) Description 07/13/2024 9:00 AM POULTRY VETERINARIAN Hospital Encounter [facility] GI Lab [address] [place] [address] Jaya Grier MD [facility] [facility] [place] [address] 07/13/2024 9:00 AM POULTRY VETERINARIAN - 07/13/2024 9:30 AM POULTRY VETERINARIAN Surgery [facility] GI Lab [address] [place] [address] Jaya Grier MD [facility] [facility] [place] [address] ESOPHAGOGASTRODUODENOSCOPY Scheduled Procedures Name Priority Associated Diagnoses Date/Ti me ESOPHAGOGASTRODUODENOSCOPY Anemia, unspecified type Gastritis without bleeding, unspecified chronicity, unspecified gastritis type 07/13/2024 9:00 AM POULTRY VETERINARIAN COLONOSCOPY Iron deficiency anemia due to chronic blood loss documented as of this encounter Procedures Procedure Name Priority Date/Time Associated Diagnosis Comments US PELVIS COMPLETE Routine 12/28/2012 1: 25 PM CDT US TRANSVAGINAL Routine 12/28/2012 1:25 PM CDT documented in this encounter Results * US Pelvis Complete (12/28/2012 1:25 PM CDT) Anatomical Region Laterality Modality Pelvis N/A Ultrasound 12/28/2012 1:25 PM CDT Narrative 12/28/2012 4:23 PM CDT US Pelvis ??Acc#: ??[id number] US Transvaginal ??Acc#: ??[id number] DATE OF EXAM: ??Dec ??2012 CLINICAL HISTORY: 62 year old female with post menopausal bleeding RESULT: TECHNIQUE: ??Transabdominal and transvaginal pelvic ultrasound were performed on 12/28/12. ??Comparison is made with CT scan of the pelvis dated 12/08/11. FINDINGS: ??The uterus measures 6.2 x 2.8 x 5.0 cm. ??The endometrium is 3 mm in thickness and there is some fluid within the endometrial cavity. The uterus is retroverted. ??Neither ovary is well visualized. ??No free fluid is seen in the pelvis. IMPRESSION: 1. SMALL AMOUNT OF FREE FLUID WITHIN THE ENDOMETRIAL CAVITY. ??THE UTERUS IS OTHERWISE NORMAL SONOGRAPHICALLY. 2. NONVISUALIZATION OF BOTH OVARIES. Interpreting Physician: ??DR CELSO HILL M.D. ??Read on: ??Dec ??2012 3:35P Transcribed by: ??vajose ??On: Dec ??2012 ??3:35P Approved Electronically by: ??LIZ Vicente, DR HOUSTON ??on: ??Eric ??2012 4:23P Ordering DR: DR SVETLANA COUGHLIN Attending DR: DR SVETLANA COUGHLIN Procedure Note Provider, Joe, - 10/21/2016 vm US Pelvis Acc#: [id number] US Transvaginal Acc#: [id number] DATE OF EXAM: Dec 28 2012 CLINICAL HISTORY: 62 year old female with post menopausal bleeding RESULT: TECHNIQUE: Transabdominal and transvaginal pelvic ultrasound wereperformed on 12/28/12. Comparison is made with CT scan of the pelvis dated12/08/11. FINDINGS: The uterus measures 6.2 x 2.8 x 5.0 cm. The endometrium is 3mm in thickness and there is some fluid within the endometrial cavity. Theuterus is retroverted. Neither ovary is well visualized. No free fluidis seen in the pelvis. IMPRESSION: 1. SMALL AMOUNT OF FREE FLUID WITHIN THE ENDOMETRIAL CAVITY. THE UTERUSIS OTHERWISE NORMAL SONOGRAPHICALLY. 2. NONVISUALIZATION OF BOTH OVARIES. Interpreting Physician: DR CELSO HILL M.D. Read on: Dec 28 20123:35P Transcribed by: [email or web address] On: Dec 28 2012 3:35P Approved Electronically by: LIZ Vicente, DR HOUSTON on: Dec 28 20124:23P Ordering DR: DR SVETLANA COUGHLIN Attending DR: DR SVETLANA COUGHLIN us Historical Provider MD MERIDA US PROCEDURES Final R esult * US Transvaginal (12/28/2012 1:25 PM CDT) Anatomical Region Laterality Modality Pelvis N/A Ultrasound 12/28/2012 1:25 PM CDT Narrative 12/28/2012 4:23 PM CDT vm US Pelvis ??Acc#: ??[id number] US Transvaginal ??Acc#: ??[id number] DATE OF EXAM: ??Dec ??2012 CLINICAL HISTORY: 62 year old female with post menopausal bleeding RESULT: TECHNIQUE: ??Transabdominal and transvaginal pelvic ultrasound were performed on 12/28/12. ??Comparison is made with CT scan of the pelvis dated 12/08/11. FINDINGS: ??The uterus measures 6.2 x 2.8 x 5.0 cm. ??The endometrium is 3 mm in thickness and there is some fluid within the endometrial cavity. The uterus is retroverted. ??Neither ovary is well visualized. ??No free fluid is seen in the pelvis. IMPRESSION: 1. SMALL AMOUNT OF FREE FLUID WITHIN THE ENDOMETRIAL CAVITY. ??THE UTERUS IS OTHERWISE NORMAL SONOGRAPHICALLY. 2. NONVISUALIZATION OF BOTH OVARIES. Interpreting Physician: ??DR CELSO HILL M.D. ??Read on: ??Dec ??2012 3:35P Transcribed by: ??vam ??On: Dec ??2012 ??3:35P Approved Electronically by: ??LIZ Vicente, DR HOUSTON ??on: ??Dec ??2012 4:23P Ordering DR: DR SVETLANA COUGHLIN Attending DR: DR SVETLANA COUGHLIN Procedure Note Provider, Joe, - 10/21/2016 US Pelvis Acc#: [id number] Transvaginal Acc#: [id number] DATE OF EXAM: Dec 28 2012 CLINICAL HISTORY: 62 year old female with post menopausal bleeding RESULT: TECHNIQUE: Transabdominal and transvaginal pelvic ultrasound wereperformed on 12/28/12. Comparison is made with CT scan of the pelvis dated12/08/11. FINDINGS: The uterus measures 6.2 x 2.8 x 5.0 cm. The endometrium is 3mm in thickness and there is some fluid within the endometrial cavity. Theuterus is retroverted. Neither ovary is well visualized. No free fluidis seen in the pelvis. IMPRESSION: 1. SMALL AMOUNT OF FREE FLUID WITHIN THE ENDOMETRIAL CAVITY. THE UTERUSIS OTHERWISE NORMAL SONOGRAPHICALLY. 2. NONVISUALIZATION OF BOTH OVARIES. Interpreting Physician: DR CELSO HILL M.D. Read on: Dec 28 20123:35P Transcribed by: ying On: Dec 28 2012 3:35P Approved Electronically by: LIZ Vicente, DR HOUSTON on: Dec 28 20124:23P Ordering DR: DR SVETLANA COUGHLIN Attending DR: DR SVETLANA COUGHLIN us Historical Provider MD MERIDA US PROCEDURES Final R esult documented in this encounter Visit Diagnoses Diagnosis Postmenopausal bleeding Anemia, unspecified type Gastritis without bleeding, unspecified chronicity, unspecified gastritis type documented in this encounter
--- OUTSIDE RECORDS SUMMARY | 2024-07-04 04:26 | XMS_ITS | Encounter Summary ---
Author Organization [facility] Healthcare Address [address] [place] [address] Care Team Providers Care Harbor Tug Captain Name Role Phone Unavailable Primary Care Provider Unavailabl e Encounter Details Date Type Department Care Team (Late st Contact Info) Description 12/04/2008 5:57 PM CDT - 12/04/2008 11:59 PM CDT Hospital Encounter [facility] Other and unspecified hyperlipidemia; Pain in soft tissues of limb; Abdominal pain, generalized Social History Tobacco Use Types Packs/Day Years Used Date Smoking Tobacco: Never Assessed Comments Unknown Sex and Gender Information Value Date Recorded Sex Assigned at Not on file Legal Sex Female 9:03 AM LEAD FRONT DESK AGENT Gender Identity Female 02/08/2020 6:39 PM CDT Sexual Orientation Not on file documented as of this encounter Plan of Treatment Upcoming Encounters Date Type Department Care Team (Latest Contact Info) Description 07/13/2024 9:00 AM LEAD FRONT DESK AGENT Hospital Encounter [facility] GI Lab [address] [place] [address] Jaya Grier MD [address] [place] [address] 07/13/2024 9:00 AM LEAD FRONT DESK AGENT - 07/13/2024 9:30 AM LEAD FRONT DESK AGENT Surgery [facility] GI Lab [address] [place] [address] Jaya Grier MD [address] [facility] [place] [address] ESOPHAGOGASTRODUODENOSCOPY Scheduled Procedures Name Priority Associated Diagnoses Date/Ti me ESOPHAGOGASTRODUODENOSCOPY Anemia, unspecified type Gastritis without bleeding, unspecified chronicity, unspecified gastritis type 07/13/2024 9:00 AM LEAD FRONT DESK AGENT COLONOSCOPY Iron deficiency anemia due to chronic blood loss documented as of this encounter Visit Diagnoses Diagnosis Other and unspecified hyperlipidemia Pain in soft tissues of limb Abdominal pain, generalized Anemia, unspecified type Gastritis without bleeding, unspecified chronicity, unspecified gastritis type documented in this encounter
--- OUTSIDE RECORDS SUMMARY | 2024-07-04 04:26 | XMS_ITS | Encounter Summary ---
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 GI Lab [address] [place] [address] Jaya Grier MD [address] [address] 07/13/2024 9:00 AM PULLING UNIT FLOORHAND - 07/13/2024 9:30 AM PULLING UNIT FLOORHAND Surgery [facility] GI Lab [address] [place] [address] Jaya Grier MD [address] [facility] [address] [place] [address] ESOPHAGOGASTRODUODENOSCOPY Scheduled Procedures Name Priority Associated Diagnoses Date/Ti me ESOPHAGOGASTRODUODENOSCOPY Anemia, unspecified type Gastritis without bleeding, unspecified chronicity, unspecified gastritis type 07/13/2024 9:00 AM PULLING UNIT FLOORHAND COLONOSCOPY Iron deficiency anemia due to chronic blood loss documented as of this encounter Visit Diagnoses Diagnosis Type 2 or unspecified type diabetes mellitus Mononeuritis Mononeuritis of unspecified site Anemia, unspecified type Gastritis without bleeding, unspecified chronicity, unspecified gastritis type documented in this encounter
--- OUTSIDE RECORDS SUMMARY | 2024-07-04 04:26 | XMS_ITS | Encounter Summary ---
Author Organization [facility] Healthcare Address [address] [place] [address] Care Team Providers Care Corporate Law Assistant Name Role Phone Unavailable Primary Care Provider Unavailabl e Encounter Details Date Type Department Care Team (Late st Contact Info) Description 08/02/2008 9:12 AM BENCH LATHE OPERATOR - 08/02/2008 11:59 PM BENCH LATHE OPERATOR Hospital Encounter [facility] Social History Tobacco Use Types Packs/Day Years Used Date Smoking Tobacco: Never Assessed Comments Unknown Sex and Gender Information Value Date Recorded Sex Assigned at Not on file Legal Sex Female 9:03 AM BENCH LATHE OPERATOR Gender Identity Female 02/08/2020 6:39 PM CDT Sexual Orientation Not on file documented as of this encounter Plan of Treatment Upcoming Encounters Date Type Department Care Team (Latest Contact Info) Description 07/13/2024 9:00 AM BENCH LATHE OPERATOR Hospital Encounter [facility] GI Lab [address] [place] [address] Jaya Grier MD [address] [facility] [address] [place] [address] 07/13/2024 9:00 AM BENCH LATHE OPERATOR - 07/13/2024 9:30 AM BENCH LATHE OPERATOR Surgery [facility] GI Lab [address] [place] [address] Jaya Grier MD [address] [facility] [address] [place] [address] ESOPHAGOGASTRODUODENOSCOPY Scheduled Procedures Name Priority Associated Diagnoses Date/Ti me ESOPHAGOGASTRODUODENOSCOPY Anemia, unspecified type Gastritis without bleeding, unspecified chronicity, unspecified gastritis type 07/13/2024 9:00 AM BENCH LATHE OPERATOR COLONOSCOPY Iron deficiency anemia due to chronic blood loss documented as of this encounter Visit Diagnoses Not on filedocumented in this encounter
--- OUTSIDE RECORDS SUMMARY | 2024-07-04 04:26 | XMS_ITS | Encounter Summary ---
Author Organization [facility] Healthcare Address [address] [place] [address] Care Team Providers Care Oil Dispenser Name Role Phone Unavailable Primary Care Provider Unavailabl e Encounter Details Date Type Department Care Team (Late st Contact Info) Description 10/31/2009 8:56 PM CDT - 10/31/2009 11:59 PM CDT Hospital Encounter [facility] Social History Tobacco Use Types Packs/Day Years Used Date Smoking Tobacco: Never Assessed Comments Unknown Sex and Gender Information Value Date Recorded Sex Assigned at Not on file Legal Sex Female 9:03 AM FILLER SIFTER MACHINE Gender Identity Female 02/08/2020 6:39 PM CDT Sexual Orientation Not on file documented as of this encounter Plan of Treatment Upcoming Encounters Date Type Department Care Team (Latest Contact Info) Description 07/13/2024 9:00 AM FILLER SIFTER MACHINE Hospital Encounter [facility] GI Lab [address] [place] [address] Jaya Grier MD [address] [facility] [address] [place] [address] 07/13/2024 9:00 AM FILLER SIFTER MACHINE - 07/13/2024 9:30 AM FILLER SIFTER MACHINE Surgery [facility] GI Lab [address] [place] [address] Jaya Grier MD [address] [place] [address] ESOPHAGOGASTRODUODENOSCOPY Scheduled Procedures Name Priority Associated Diagnoses Date/Ti me ESOPHAGOGASTRODUODENOSCOPY Anemia, unspecified type Gastritis without bleeding, unspecified chronicity, unspecified gastritis type 07/13/2024 9:00 AM FILLER SIFTER MACHINE COLONOSCOPY Iron deficiency anemia due to chronic blood loss documented as of this encounter Visit Diagnoses Not on filedocumented in this encounter
--- OUTSIDE RECORDS SUMMARY | 2024-07-04 04:26 | XMS_ITS | Encounter Summary ---
Author Organization [facility] Healthcare Address [address] [place] [address] Care Team Providers Care Braided Rug Maker Name Role Phone Unavailable Primary Care Provider Unavailabl e Encounter Details Date Type Department Care Team (Late st Contact Info) Description 04/09/2014 12:24 PM CDT - 04/09/2014 4:38 PM CDT Hospital Encounter [facility] Brigid Manning MD [address] [facility] [place] [address] Other abnormal glucose; Vaginitis and vulvovaginitis Social History Tobacco Use Types Packs/Day Years Used Date Smoking Tobacco: Never Assessed Comments Unknown Sex and Gender Information Value Date Recorded Sex Assigned at Not on file Legal Sex Female 9:03 AM INTERIOR DESIGN FACULTY MEMBER Gender Identity Female 02/08/2020 6:39 PM CDT Sexual Orientation Not on file documented as of this encounter Plan of Treatment Upcoming Encounters Date Type Department Care Team (Latest Contact Info) Description 07/13/2024 9:00 AM INTERIOR DESIGN FACULTY MEMBER Hospital Encounter [facility] [address] [place] [address] Jaya Grier MD [address] [facility] [address] [address] 07/13/2024 9:00 AM INTERIOR DESIGN FACULTY MEMBER - 07/13/2024 9:30 AM INTERIOR DESIGN FACULTY MEMBER Surgery [facility] [address] [place] [address] Jaya Grier MD [address] [facility] [place] [address] ESOPHAGOGASTRODUODENOSCOPY Scheduled Procedures Name Priority Associated Diagnoses Date/Ti ky ESOPHAGOGASTRODUODENOSCOPY Anemia, unspecified type Gastritis without bleeding, unspecified chronicity, unspecified gastritis type 07/13/2024 9:00 AM INTERIOR DESIGN FACULTY MEMBER COLONOSCOPY Iron deficiency anemia due to chronic blood loss documented as of this encounter Procedures Procedure Name Priority Date/Time Associated Diagnosis Comments SERUM BASIC METABOLIC PANEL Routine 04/09/2014 2:53 PM CDT BLOOD WBC CELL MORPHOLOGIC EXAM, AUTO Routine 04/09/2014 2:53 PM CDT BLOOD GLUCOSE Routine 04/09/2014 2:53 PM CDT BLOOD CELL COUNT (CBC) Routine 04/09/2014 2:53 PM CDT URINALYSIS Routine 04/09/2014 1:50 PM CDT DISCHARGE LABORATORY CUMULATIVE REPORT Routine 04/09/2014 12:00 AM CDT documented in this encounter Results * (ABNORMAL) Blood glucose (04/09/2014 2:53 PM CDT) Glucose, bld 330(H) 70 - 199 mg/dl HISTORICAL RESULTS Blood specimen (specimen) 04/09/2014 2:53 PM CDT us Historical Provider LAB BLOOD ORDERABLES Blessing alicea Result HISTORICAL RESULTS * (ABNORMAL) Serum basic metabolic panel (04/09/2014 2:53 PM CDT) BUN 21.0 6.0 - 23.0 mg/dl HISTORICAL RESULTS Sodium 134 134 - 143 mmol/L HISTORICAL RESULTS Potassium, sr 4.3 3.4 - 5.0 mmol/L HISTORICAL RESULTS Comment:HEMOLYSIS PRESENT PO TASSIUM MAY BE AFFECTED Chloride 97(L) 99 - 108 mmol/L HISTORICAL RESULTS CO2 28 23 - 32 mmol/L HISTORICAL RESULTS Glucose 371(H) 70 - 199 mg/dl HISTORICAL RESULTS Comment: Note:The glucose is assumed non fasting Fastin-99 mg/dl Random: 70-199 mg/dl Either a fasting glucose > 126 mg/dL or a random glucose > 200 mg/dL plus symptoms is diagnostic of diabetes when confirmed on another day. Fasting values > 100 mg/dl but < 125 mg/dL are diagnostic of impaired fasting glucose. New reference ranges implemented 05/02/2013. Creatinine 1.11 0.60 - 1.30 mg/dl HISTORICAL RESULTS Comment: eGFR:53 ml/min/1.73sq.m if non -Liberian. eGFR:64 ml/min/1.73sq.m if -Liberian. AVE GFR for 60-69 yr. age group: ??85 ml/min/173sq.m Calculated using MDRD Equation BUN/creat ratio 19 - HIST ORICAL RESULTS A. gap 13 7 - 14 mmol/L HISTORICAL RESULTS Osmo, calc 286 280 - 301 mOsm/kg HISTORICAL RESULTS Calcium 9.9(H) 8.6 - 9.8 mg/dl HISTORICAL RESULTS Serum 04/09/2014 2:53 PM CDT us Brigid Zazueta MD LAB BLOOD ORDERABLES Final Result HISTORICAL RESULTS * (ABNORMAL) Blood cell count (CBC) (04/09/2014 2:53 PM CDT) WBC 7.8 4.0 - 10.5 K/cumm HISTORICAL RESULTS RBC 4.41 4.20 - 5.40 M/cumm HISTORICAL RESULTS Hgb 13.1 12.0 - 16.0 g/dl HISTORICAL RESULTS Hct 39.2 37.0 - 47.0 % HISTORICAL RESULTS MCV 88.9 77.0 - 97.0 fl HISTORICAL RESULTS MCH 29.7 23.0 - 34.0 pg HISTORICAL RESULTS MCHC 33.4 32.0 - 36.0 g/dl HISTORICAL RESULTS Rdw 13.2 11.5 - 14.5 % HISTORICAL RESULTS Platelets 280 150 - 400 K/cumm HISTORICAL RESULTS MPV 11.0(H) 7.4 - 10.4 fl HISTORICAL RESULTS Blood specimen (specimen) 04/09/2014 2:53 PM CDT Brigid Zazueta MD LAB BLOOD ORDERABLES Final Result Performing Organization Address City/[facility] de Phone Number HISTORICAL RESULTS * (ABNORMAL) Blood WBC cell morphologic exam, auto (04/09/2014 2:53 PM CDT) Lymphocytes 36.8(H) 25.0 - 33.0 % HISTORICAL RESULTS Monos 5.9 0.0 - 13.0 % HISTORICAL RESULTS Neutrophils 56.1 54.0 - 69.0 % HISTORICAL RESULTS Eosinophils 0.6 0.0 - 10.0 % HISTORICAL RESULTS Basophils 0.5 0.0 - 1.0 % HISTORICAL RESULTS Immature granulocytes 0.1 0.0 - 1.0 % HISTORICAL RESULTS Lymphocytes, abs 2.9 1.2 - 3.4 K/cumm HISTORICAL RESULTS Monocytes, absolute 0.5(L) 1.1 - 1.9 K/cumm HISTORICAL RESULTS Neutrophils, abs 4.4 1.4 - 6.5 K/cumm HISTORICAL RESULTS Eosinophils, abs 0.1 0.0 - 0.7 cells/cum m HISTORICAL RESULTS Basophils, abs 0.0 0.0 - 0.2 K/cumm HISTORICAL RESULTS Immature granulocyte, abs 0.0 0.0 - 0.0 K/cumm HISTORICAL RESULTS Blood specimen (specimen) 04/09/2014 2:53 PM CDT Brigid Zazueta MD LAB BLOOD ORDERABLES Final Result Performing Organization Address [facility] de Phone Number HISTORICAL RESULTS * (ABNORMAL) Urinalysis (04/09/2014 1:50 PM CDT) Color, ur YELLOW YELLOW HISTORICAL RESULTS Clarity, ur CLEAR CLEAR HISTORIC AL RESULTS Specific gravity, ur >1.030 1.003 - 1.030 gu HISTORICAL RESULTS Leukocyte esterase, ur Negative NEGATIVE HISTORICAL RESULTS Nitrites, ur Negative NEGATIVE HISTORI ARIES RESULTS pH, ur 6.0 6.0 HISTORICAL RESULTS Protein, ur Negative NEGATIVE HISTORIC AL RESULTS Glucose, ur >=1000(A) NEGATIVE HISTORIC AL RESULTS Ketones, ur Negative NEGATIVE HISTORIC AL RESULTS Urobilinogen, quant, ur 0.2 0.2 - 1.0 mg/dl HISTORICAL RESULTS Bilirubin, ur Negative NEGATIVE HISTOR ICAL RESULTS U Blood Negative NEGATIVE HISTORICAL RESULTS Urine 04/09/2014 1:50 PM CDT us Brigid Zazueta MD LAB BLOOD ORDERABLES Final Result HISTORICAL RESULTS * Discharge Laboratory Cumulative Report (04/09/2014 12:00 AM CDT) 04/09/2014 Narrative HISTORICAL RESULTS - 04/10/2014 12:30 AM CDT Patient No: [id number] ? [facility] Patient Name: SIXTO CHAKRABORTY ?[facility] Healthcare Age: 63 YRS ?: 1950 ?Sex:F ?[address] )[id number] ?? Adm Dt: 04/09/2014 ?[place], [place] ??[address] Created: 04/10/2014 ??0030 ?? Pt. Type: E ? Discharge Dt: 04/09/2014 ? Pathologists: Dilia Solorzano MD Admit Attend Dr: BRIGID ZAZUETA MD ? BLOOD CELL COUNTS ?Collection Date: ?04/09/14 ?Collection Time: ?1453 ? Ref Range: ?? Units: [4.00-10.50] /CMM ? WBC X 10^3 ?7.77 [4.20-5.40] ??/CMM ? RBC X 10^6 ?4.41 [12.0-16.0] ??G/DL ? HGB ? 13.1 [37.0-47.0] ??% ?HCT ? 39.2 [77.0-97.0] ??FL ? MCV ? 88.9 [23.0-34.0] ??PG ? MCH ? 29.7 [32.0-36.0] ??% ?MCHC ?33.4 [11.5-14.5] ??% ?RDW ? 13.2 [150-400] ?? /CMM ? PLT X 10^3 ? 280 ?BLOOD CELL DIFFERENTIAL ?Collection Date: ?10/19/14 ?Collection Time: ?1453 ? Ref Range: ?? Units: [54.0-69.0] ??% ?NEUTROPHILS ? 56.1 [25.0-33.0] ??% ?LYMPHOCYTES ? 36.8 H [0.0-13.0] ??% ?MONOCYTES ?5.9 [0.0-10.0] ??% ?EOSINOPHILS ?0.6 [0.0-1.0] ?? % ?BASOPHILS ?0.5 ? /CMM ? A LYMPHOCYTE ? 2.9 [0.0-1.0] ?? % ?IMM GRAN % ? 0.1 [0.00-0.02] ??/CMM ? A IMM GRAN ?0.01 [1.1-1.9] ?? /CMM ? A MONOCYTE ? 0.5 L [1.4-6.5] ?? /CMM ? A NEUTROPHIL ? 4.4 [0.0-0.7] ?? /CMM ? A EOSINOPHIL ? 0.1 [0.0-0.2] ?? /CMM ? A BASOPHIL ? 0.0 Footnotes and Symbols: L = Low, H = High ?? CONTINUED ?Page: ?? 1 Patient No: [id number] ? [facility] Patient Name: SIXTO CHAKRABORTY ?[facility] Healthcare Age: 63 YRS ?: 1950 ?Sex:F ?[address] )[phone] ?? Adm Dt: 04/09/2014 ?[place], [place] ??[address] Created: 04/10/2014 ??0030 ?? Pt. Type: E ? Discharge Dt: 04/09/2014 ? Pathologists: Dilia Solorzano MD Admit Attend Dr: BRIGID ZAZUETA MD ? GENERAL CHEMISTRY ?Collection Date: ?04/09/14 ?Collection Time: ?1453 ? Ref Range: ?? Units: [134-143] ?? MMOL/L ? SODIUM ? 134 ??[70-199] ?? MG/DL ?POC GLUCOSE ?330 H [3.4-5.0] ?? MMOL/L ? POTASSIUM ?4.3 f ?04/09/141452 HEMOLYSIS PRESENT POTASSIUM MAY BE AFFECTED FOOTNOTE ADDED ON ?? 04/09/14 ?? AT 1526 BY 999 [99.0-108.0] MMOL/L ? CHLORIDE ?97.0 L [23.0-32.0] ??MMOL/L ? TOTAL CO2 ? 27.9 ?? [7-14] ?MMOL/L ? ANION GAP ? 13 ??[70-199] ?? MG/DL ?GLUCOSE ?371 Hf [280-301] ?? MOSM/K ? CALCULATED OSMO ?286 [8.6-9.8] ?? MG/DL ?CALCIUM ?9.9 H [6.0-23.0] ??MG/DL ?BUN ? 21.0 ??[10-20] ? B/C RATIO ? 19 [0.60-1.30] ??MG/DL ?CREATININE ?1.11 f ?04/09/141452 eGFR:53 ml/min/1.73sq.m if non -Liberian. eGFR:64 ml/min/1.73sq.m if -Liberian. AVE GFR for 60-69 yr. age group: ??85 ml/min/173sq.m Calculated using MDRD Equation FOOTNOTE ADDED ON ?? 04/09/14 ?? AT 1526 BY 999 Footnotes and Symbols: L = Low, H = High, f = Footnote GLUCOSE (05/24/13 -- Current) Note:The glucose is assumed non fasting Fastin-99 mg/dl Random: 70-199 mg/dl Either a fasting glucose > 126 mg/dL or a random glucose > 200 mg/dL plus symptoms is diagnostic of diabetes when confirmed on another day. Fasting values > 100 mg/dl but < 125 mg/dL are diagnostic of impaired fasting glucose. New reference ranges implemented 05/02/2013. ?? CONTINUED ?Page: ?? 2 Patient No: [id number] ? [facility] Patient Name: SIXTO CHAKRABORTY ?[facility] Healthcare Age: 63 YRS ?: 1950 ?Sex:F ?[address] )[phone] ?? Adm Dt: 04/09/2014 ?[place], [place] ??[address] Created: 04/10/2014 ??0030 ?? Pt. Type: E ? Discharge Dt: 04/09/2014 ? Pathologists: Dilia Solorzano MD Admit Attend Dr: BRIGID ZAZUETA MD ?URINALYSIS ?Collection Date: ?04/09/14 ?Collection Time: ?1350 ? Ref Range: ?? Units: [YELLOW] ? U COLOR ? YELLOW ??[CLEAR] ? U APPEARANCE ? CLEAR [1.003-1.030] ? U SPEC GRAVITY ?>1.030 [NEGATIVE] ?U LEUKO ESTRASE ? NEGATIVE [NEGATIVE] ?U NITRITE ? NEGATIVE ?? [6.0] ?U PH ? 6.0 [NEGATIVE] ?U PROTEIN ? NEGATIVE [NEGATIVE] ?U GLUCOSE ? >=1000 * [NEGATIVE] ?U KETONES ? NEGATIVE [0.2- 1.0] ?UROBILINOGEN ? 0.2 [NEGATIVE] ?U BILIRUBIN ? NEGATIVE [NEGATIVE] ?U BLOOD ? NEGATIVE Footnotes and Symbols: * = Abnormal ?? END OF CHART ? Page: ?? 3 us Historical Provider MD LAB BLOOD ORDERABLES Blessing l Result HISTORICAL RESULTS documented in this encounter Visit Diagnoses Diagnosis Other abnormal glucose Vaginitis and vulvovaginitis Anemia, unspecified type Gastritis without bleeding, unspecified chronicity, unspecified gastritis type documented in this encounter
--- OUTSIDE RECORDS SUMMARY | 2024-07-04 04:26 | XMS_ITS | Encounter Summary ---
Author Organization [facility] Facility Care Team Providers Care Vegetable Grader Name Role Phone Unavailable Primary Care Provider Unavailabl e Encounter Details Date Type Department Care Team (Late st Contact Info) Description 09/13/2008 11:40 AM CDT - 09/13/2008 4:00 PM CDT Hospital Encounter [facility] Dassopoulos, Themistocles Abdominal pain; Flatulence, eructation and gas pain; External hemorrhoids; Type 2 or unspecified type diabetes mellitus; History of colonic polyps Social History Tobacco Use Types Packs/Day Years Used Date Smoking Tobacco: Never Assessed Comments Unknown Sex and Gender Information Value Date Recorded Sex Assigned at Not on file Legal Sex Female 9:03 AM PLANT UTILITY PERSON Gender Identity Female 02/08/2020 6:39 PM CDT Sexual Orientation Not on file documented as of this encounter Plan of Treatment Upcoming Encounters Date Type Department Care Team (Latest Contact Info) Description 07/13/2024 9:00 AM PLANT UTILITY PERSON Hospital Encounter [facility] [address] [place] [address] Jaya Grier MD [address] [place] [address] 07/13/2024 9:00 AM PLANT UTILITY PERSON - 07/13/2024 9:30 AM PLANT UTILITY PERSON Surgery [facility] [address] [place] [address] Jaya Grier MD [address] [facility] [address] [place] [address] ESOPHAGOGASTRODUODENOSCOPY Scheduled Procedures Name Priority Associated Diagnoses Date/Ti me ESOPHAGOGASTRODUODENOSCOPY Anemia, unspecified type Gastritis without bleeding, unspecified chronicity, unspecified gastritis type 07/13/2024 9:00 AM PLANT UTILITY PERSON COLONOSCOPY Iron deficiency anemia due to chronic blood loss documented as of this encounter Visit Diagnoses Diagnosis Abdominal pain Abdominal pain, unspecified site Flatulence, eructation and gas pain Flatulence, eructation, and gas pain External hemorrhoids External hemorrhoids without mention of complication Type 2 or unspecified type diabetes mellitus History of colonic polyps Personal history of colonic polyps Anemia, unspecified type Gastritis without bleeding, unspecified chronicity, unspecified gastritis type documented in this encounter
--- OUTSIDE RECORDS SUMMARY | 2024-07-04 04:26 | XMS_ITS | Encounter Summary ---
Author Organization [facility] Healthcare Address [address] [place] [address] Care Team Providers Care Entry Level Management Name Role Phone Unavailable Primary Care Provider Unavailabl e Encounter Details Date Type Department Care Team (Late st Contact Info) Description 05/01/2012 11:30 AM SCROLL MACHINE OPERATOR - 05/01/2012 2:15 PM SCROLL MACHINE OPERATOR Hospital Encounter [facility] Aldo Hanson MD [address] [facility] [address] [place] [id number] Low back pain; Type 2 or unspecified type diabetes mellitus; Personal history of noncompliance with medical treatment, presenting hazards to health Social History Tobacco Use Types Packs/Day Years Used Date Smoking Tobacco: Never Assessed Comments Unknown Sex and Gender Information Value Date Recorded Sex Assigned at Not on file Legal Sex Female 9:03 AM SCROLL MACHINE OPERATOR Gender Identity Female 02/08/2020 6:39 PM CDT Sexual Orientation Not on file documented as of this encounter Plan of Treatment Upcoming Encounters Date Type Department Care Team (Latest Contact Info) Description 07/13/2024 9:00 AM SCROLL MACHINE OPERATOR Hospital Encounter [facility] [address] [place] [address] Jaya Grier MD [address] [facility] [address] [address] 07/13/2024 9:00 AM SCROLL MACHINE OPERATOR - 07/13/2024 9:30 AM SCROLL MACHINE OPERATOR Surgery [facility] [address] [place] [address] Jaya Grier MD [address] [facility] [address] [place] [address] ESOPHAGOGASTRODUODENOSCOPY Scheduled Procedures Name Priority Associated Diagnoses Date/Ti me ESOPHAGOGASTRODUODENOSCOPY Anemia, unspecified type Gastritis without bleeding, unspecified chronicity, unspecified gastritis type 07/13/2024 9:00 AM SCROLL MACHINE OPERATOR COLONOSCOPY Iron deficiency anemia due to chronic blood loss documented as of this encounter Visit Diagnoses Diagnosis Low back pain Lumbago Type 2 or unspecified type diabetes mellitus Personal history of noncompliance with medical treatment, presenting hazards to health Anemia, unspecified type Gastritis without bleeding, unspecified chronicity, unspecified gastritis type documented in this encounter
--- OUTSIDE RECORDS SUMMARY | 2024-07-04 04:26 | XMS_ITS | Encounter Summary ---
Author Organization [facility] Healthcare Address [address] [place] [address] Care Team Providers Care Relief Operator Name Role Phone Unavailable Primary Care Provider Unavailabl e Encounter Details Date Type Department Care Team (Late st Contact Info) Description 12/13/2010 9:18 AM CDT - 12/13/2010 12:18 PM CDT Hospital Encounter [facility] Edgardo Cruz MD [address] [place] [address] Chriss Paz MD [address] [place] [id number] Other and unspecified noninfectious gastroenteritis and colitis; Type 2 or unspecified type diabetes mellitus Social History Tobacco Use Types Packs/Day Years Used Date Smoking Tobacco: Never Assessed Comments Unknown Sex and Gender Information Value Date Recorded Sex Assigned at Not on file Legal Sex Female 9:03 AM FUNDRAISING CONSULTANT Gender Identity Female 02/08/2020 6:39 PM CDT Sexual Orientation Not on file documented as of this encounter Plan of Treatment Upcoming Encounters Date Type Department Care Team (Latest Contact Info) Description 07/13/2024 9:00 AM FUNDRAISING CONSULTANT [facility] [address] [place] [address] Jaya Grier MD [address] [facility] [address] [place] [address] 07/13/2024 9:00 AM FUNDRAISING CONSULTANT - 07/13/2024 9:30 AM FUNDRAISING CONSULTANT [facility] [address] [place] [address] Jaya Grier MD [facility] [address] [place] [address] ESOPHAGOGASTRODUODENOSCOPY Scheduled Procedures Name Priority Associated Diagnoses Date/Ti me ESOPHAGOGASTRODUODENOSCOPY Anemia, unspecified type Gastritis without bleeding, unspecified chronicity, unspecified gastritis type 07/13/2024 9:00 AM FUNDRAISING CONSULTANT COLONOSCOPY Iron deficiency anemia due to chronic blood loss documented as of this encounter Visit Diagnoses Diagnosis Other and unspecified noninfectious gastroenteritis and colitis Type 2 or unspecified type diabetes mellitus Anemia, unspecified type Gastritis without bleeding, unspecified chronicity, unspecified gastritis type documented in this encounter
--- OUTSIDE RECORDS SUMMARY | 2024-07-04 04:26 | XMS_ITS | Encounter Summary ---
Author Organization [facility] Healthcare Address [address] [place] [address] Care Team Providers Care Block Tester Name Role Phone Unavailable Primary Care Provider Unavailabl e Encounter Details Date Type Department Care Team (Late st Contact Info) Description 03/10/2009 12:01 AM CDT - 03/10/2009 11:59 PM CDT Hospital Encounter [facility] Alla Varner MD [address] [place] [address] Other screening mammogram Social History Tobacco Use Types Packs/Day Years Used Date Smoking Tobacco: Never Assessed Comments Unknown Sex and Gender Information Value Date Recorded Sex Assigned at Not on file Legal Sex Female 9:03 AM PAIN MANAGEMENT PHYSICIAN Gender Identity Female 02/08/2020 6:39 PM CDT Sexual Orientation Not on file documented as of this encounter Plan of Treatment Upcoming Encounters Date Type Department Care Team (Latest Contact Info) Description 07/13/2024 9:00 AM PAIN MANAGEMENT PHYSICIAN Hospital Encounter [facility] [address] [place] [address] Jaya Grier MD [address] [address] 07/13/2024 9:00 AM PAIN MANAGEMENT PHYSICIAN - 07/13/2024 9:30 AM PAIN MANAGEMENT PHYSICIAN Surgery [facility] Lab [address] [place] [address] Jaya Grier MD [address] [facility] [place] [address] ESOPHAGOGASTRODUODENOSCOPY Scheduled Procedures Name Priority Associated Diagnoses Date/Ti me ESOPHAGOGASTRODUODENOSCOPY Anemia, unspecified type Gastritis without bleeding, unspecified chronicity, unspecified gastritis type 07/13/2024 9:00 AM PAIN MANAGEMENT PHYSICIAN COLONOSCOPY Iron deficiency anemia due to chronic blood loss documented as of this encounter Visit Diagnoses Diagnosis Other screening mammogram Anemia, unspecified type Gastritis without bleeding, unspecified chronicity, unspecified gastritis type documented in this encounter
--- OUTSIDE RECORDS SUMMARY | 2024-07-04 04:26 | XMS_ITS | Encounter Summary ---
Author Organization [facility] Healthcare Address [address] [place] [address] Care Team Providers Care Linseed Oil Temperer Name Role Phone Unavailable Primary Care Provider Unavailabl e Encounter Details Date Type Department Care Team (Late st Contact Info) Description 05/04/2014 6:32 PM AUDIOPROSTHOLOGIST - 05/04/2014 9:55 PM AUDIOPROSTHOLOGIST Hospital Encounter [facility] Crow Mccormick MD [address] [place] [id number] Type I diabetes mellitus (HCC); Myalgia and myositis; Essential hypertension Social History Tobacco Use Types Packs/Day Years Used Date Smoking Tobacco: Never Assessed Comments Unknown Sex and Gender Information Value Date Recorded Sex Assigned at Not on file Legal Sex Female 9:03 AM AUDIOPROSTHOLOGIST Gender Identity Female 02/08/2020 6:39 PM CDT Sexual Orientation Not on file documented as of this encounter Plan of Treatment Upcoming Encounters Date Type Department Care Team (Latest Contact Info) Description 07/13/2024 9:00 AM AUDIOPROSTHOLOGIST Hospital Encounter [facility] [address] [place] [address] Jaya Grier MD [address] [address] 07/13/2024 9:00 AM AUDIOPROSTHOLOGIST - 07/13/2024 9:30 AM AUDIOPROSTHOLOGIST Surgery [facility] [address] [place] [address] Jaya Grier MD [address] [address] ESOPHAGOGASTRODUODENOSCOPY Scheduled Procedures Name Priority Associated Diagnoses Date/Ti me ESOPHAGOGASTRODUODENOSCOPY Anemia, unspecified type Gastritis without bleeding, unspecified chronicity, unspecified gastritis type 07/13/2024 9:00 AM AUDIOPROSTHOLOGIST COLONOSCOPY Iron deficiency anemia due to chronic blood loss documented as of this encounter Procedures Procedure Name Priority Date/Time Associated Diagnosis Comments DISCHARGE CUMULATIVE SUMMARY ADDENDUM Routine 05/07/2014 2:40 AM AUDIOPROSTHOLOGIST URINE MICROSCOPY Routine 05/04/2014 9:25 PM AUDIOPROSTHOLOGIST URINALYSIS Routine 05/04/2014 9:25 PM AUDIOPROSTHOLOGIST BLOOD GLUCOSE Routine 05/04/2014 7:59 PM AUDIOPROSTHOLOGIST SERUM BASIC METABOLIC PANEL Routine 05/04/2014 7:50 PM AUDIOPROSTHOLOGIST BLOOD WBC CELL MORPHOLOGIC EXAM, AUTO Routine 05/04/2014 7:50 PM AUDIOPROSTHOLOGIST BLOOD CELL COUNT (CBC) Routine 4 7:50 PM AUDIOPROSTHOLOGIST XR SHOULDER 2+ VW Routine 05/04/2014 7:4 6 PM AUDIOPROSTHOLOGIST XR CHEST PA LATERAL 2 VIEWS Routine 05/04/2014 7:46 PM AUDIOPROSTHOLOGIST SERUM TROPONIN I Routine 05/04/2014 1:50 PM AUDIOPROSTHOLOGIST ELECTROCARDIOGRAPHY (ECG) 05/04/2014 MICROBIOLOGY SUMMARY Routine 05/04/2014 12:00 AM AUDIOPROSTHOLOGIST DISCHARGE LABORATORY CUMULATIVE REPORT Routine 05/04/2014 12:00 AM AUDIOPROSTHOLOGIST documented in this encounter Results * Discharge Cumulative Summary Addendum (05/07/2014 2:40 AM AUDIOPROSTHOLOGIST) 05/07/2014 2:40 AM AUDIOPROSTHOLOGIST Narrative HISTORICAL RESULTS - 05/07/2014 2:40 AM AUDIOPROSTHOLOGIST Patient No: [id number] ? [facility] Patient Name: SIXTO CHAKRABORTY ?[facility] Age: 63 YRS ?: 1950 ?Sex:F ?[address] )[phone] ?? Adm Dt: 05/04/2014 ?[place], [place] ??[address] Created: 05/07/2014 ??0240 ?? Pt. Type: E ? Discharge Dt: 05/04/2014 ? Pathologists: Dilia Solorzano MD Admit Attend Dr: CROW TIERNEY MD ? MICRO - URINE URINE CULTURE ? Collected: 05/04/142124 ? Received: 05/04/142140 Source: CLEAN CATCH URINE ? Started: 05/04/142217 ? PRELIMINARY REPORT ?05/05/14617 ? NO GROWTH ? FINAL REPORT ?05/06/14607 ? NO GROWTH ?? END OF CHART ? Page: ?? 1 Historical Provider MD LAB MICROBIOLOGY - GENERA L ORDERABLES Final Result Performing Organization Address [facility] Phone Number HISTORICAL RESULTS * (ABNORMAL) Urinalysis (05/04/2014 9:25 PM AUDIOPROSTHOLOGIST) Leukocyte esterase, ur SMALL(A) NEGATIVE HISTORICAL RESULTS Color, ur YELLOW YELLOW HISTORICAL RESULTS Nitrites, ur Negative NEGATIVE HISTORI ARIES RESULTS Clarity, ur CLEAR CLEAR HISTORIC AL RESULTS pH, ur 7.0 6.0 HISTORICAL RESULTS Specific gravity, ur 1.030 1.003 - 1.030 gu HISTORICAL RESULTS Protein, ur Negative NEGATIVE HISTORIC AL RESULTS Glucose, ur >=1000(A) NEGATIVE HISTORIC AL RESULTS Ketones, ur Negative NEGATIVE HISTORIC AL RESULTS Urobilinogen, quant, ur 0.2 0.2 - 1.0 mg/dl HISTORICAL RESULTS Bilirubin, ur Negative NEGATIVE HISTOR ICAL RESULTS U Blood Negative NEGATIVE HISTORICAL RESULTS Urine 05/04/2014 9:25 PM AUDIOPROSTHOLOGIST Result [facility] Historical Provider MD LAB BLOOD ORDERABLES Blessing l Result Performing Organization Address [facility] Phone Number HISTORICAL RESULTS * (ABNORMAL) Urine microscopy (05/04/2014 9:25 PM AUDIOPROSTHOLOGIST) WBC, ur 25 - 50(A) 0 - 2 /hpf HISTORIC AL RESULTS RBC, ur NOTSEEN 0 - 5 /hpf HISTORICA L RESULTS Epithelial cells, ur 0 - 2 0 - 2 /hpf HISTORICAL RESULTS Bacteria, ur Negative NEGATIVE /hpf HISTORICAL RESULTS Hyaline casts 0 - 2 0 - 4 /lpf HISTO RICAL RESULTS Crystals, ur Negative NEGATIVE HISTORI ARIES RESULTS Yeast, ur Negative NEGATIVE HISTORICAL RESULTS Pathological casts, ur Negative NEGATIVE HISTORICAL RESULTS Urine 05/04/2014 9:25 PM AUDIOPROSTHOLOGIST Result [facility] Historical Provider MD LAB BLOOD ORDERABLES Blessing l Result Performing Organization Address [facility] Phone Number HISTORICAL RESULTS * (ABNORMAL) Blood glucose (05/04/2014 7:59 PM AUDIOPROSTHOLOGIST) Glucose, bld 293(H) 70 - 199 mg/dl HISTORICAL RESULTS Blood specimen (specimen) 05/04/2014 7:59 PM AUDIOPROSTHOLOGIST Crow Tierney MD LAB BLOOD ORDERABLES Final R esult HISTORICAL RESULTS * (ABNORMAL) Serum basic metabolic panel (05/04/2014 7:50 PM AUDIOPROSTHOLOGIST) BUN 19.0 6.0 - 23.0 mg/dl HISTORICAL RESULTS Sodium 140 134 - 143 mmol/L HISTORICAL RESULTS Potassium, sr 4.5 3.4 - 5.0 mmol/L HISTORICAL RESULTS Chloride 105 99 - 108 mmol/L HISTORICAL RESULTS CO2 30 23 - 32 mmol/L HISTORICAL RESULTS Glucose 287(H) 70 - 199 mg/dl HISTORICAL RESULTS Comment: [...] glucose. New reference ranges implemented 05/02/2013. Creatinine 1.00 0.60 - 1.30 mg/dl HISTORICAL RESULTS Comment: eGFR:60 ml/min/1.73sq.m if non -Welsh. eGFR: >70 ml/min/1.73sq.m if -Welsh. AVE GFR for 60-69 yr. age group: ??85 ml/min/173sq.m Calculated using MDRD Equation BUN/creat ratio 19 10 - 20 HIST ORICAL RESULTS A. gap 10 7 - 14 mmol/L HISTORICAL RESULTS Osmo, calc 292 280 - 301 mOsm/kg HISTORICAL RESULTS Calcium 10.1(H) 8.6 - 9.8 mg/dl HISTORICAL RESULTS Serum 05/04/2014 7:50 PM AUDIOPROSTHOLOGIST Historical Provider LAB BLOOD ORDERABLES Blessing l Result HISTORICAL RESULTS * (ABNORMAL) Blood cell count (CBC) (05/04/2014 7:50 PM AUDIOPROSTHOLOGIST) WBC 11.0(H) 4.0 - 10.5 K/cumm HISTORICAL RESULTS RBC 4.18(L) 4.20 - 5.40 M/cumm HISTORICAL RESULTS Hgb 12.4 12.0 - 16.0 g/dl HISTORICAL RESULTS Hct 37.7 37.0 - 47.0 % HISTORICAL RESULTS MCV 90.2 77.0 - 97.0 fl HISTORICAL RESULTS MCH 29.7 23.0 - 34.0 pg HISTORICAL RESULTS MCHC 32.9 32.0 - 36.0 g/dl HISTORICAL RESULTS Rdw 14.1 11.5 - 14.5 % HISTORICAL RESULTS Platelets 293 150 - 400 K/cumm HISTORICAL RESULTS MPV 10.0 7.4 - 10.4 fl HISTORICAL RESULTS Blood specimen (specimen) 05/04/2014 7:50 PM AUDIOPROSTHOLOGIST Historical Provider LAB BLOOD ORDERABLES Blessing l Result Performing Organization Address [facility] de Phone Number HISTORICAL RESULTS * (ABNORMAL) Blood WBC cell morphologic exam, auto (05/04/2014 7:50 PM AUDIOPROSTHOLOGIST) Pathologist [facility] Lymphocytes 32.8 25.0 - 33.0 % HISTORICAL RESULTS Monos 7.1 0.0 - 13.0 % HISTORICAL RESULTS Neutrophils 59.3 54.0 - 69.0 % HISTORICAL RESULTS Eosinophils 0.5 0.0 - 10.0 % HISTORICAL RESULTS Basophils 0.2 0.0 - 1.0 % HISTORICAL RESULTS Immature granulocytes 0.1 0.0 - 1.0 % HISTORICAL RESULTS Lymphocytes, abs 3.6(H) 1.2 - 3.4 K/cumm HISTORICAL RESULTS Monocytes, absolute 0.8(L) 1.1 - 1.9 K/cumm HISTORICAL RESULTS Neutrophils, abs 6.5 1.4 - 6.5 K/cumm HISTORICAL RESULTS Eosinophils, abs 0.1 0.0 - 0.7 cells/cumm HISTORICAL RESULTS Basophils, abs 0.0 0.0 - 0.2 K/cumm HISTORICAL RESULTS Immature granulocyte, abs 0.0 0.0 - 0.0 K/cumm HISTORICAL RESULTS Blood specimen (specimen) 05/04/2014 7:50 PM AUDIOPROSTHOLOGIST us Historical Provider LAB BLOOD ORDERABLES Blessing deanne Result HISTORICAL RESULTS * XR Chest Pa Lateral 2 Vw (05/04/2014 7:46 PM AUDIOPROSTHOLOGIST) Anatomical Region Laterality Modality Body, Chest N/A Radiographic Kathy ging 05/04/2014 7:46 PM AUDIOPROSTHOLOGIST Narrative 05/05/2014 7:30 PM AUDIOPROSTHOLOGIST Mr XR Chest 2 Views ?[id number] ??Acc#: ??[id number] DATE OF EXAM: ??May 04 2014 CLINICAL HISTORY: High blood pressure and left arm injury. RESULT: PA and lateral views of the chest were obtained and are compared with a prior study of 12/08/11. ??No consolidative lung opacity, pneumothorax, or pleural effusion is seen. ??The osseous structures are appropriate for the patient's age. IMPRESSION: NO ACUTE CARDIOPULMONARY PROCESS. Interpreting Physician: ??JUJU CARCAMO M.D. ??Read on: ??May 05 2014 5:57A Transcribed by: ??mrr ??On: May 05 2014 ??8:50A Approved Electronically by: ??JUJU CARCAMO M.D. ??on: ??May 05 2014 7:30P Ordering DR: Attending DR: CROW TIERNEY Procedure Note Provider, Joe, - 10/21/2016 Mr XR Chest 2 Views [id number] Acc#: [id number] DATE OF EXAM: May 04 2014 CLINICAL HISTORY: High blood pressure and left arm injury. RESULT: PA and lateral views of the chest were obtained and are compared with aprior study of 12/08/11. No consolidative lung opacity, pneumothorax, orpleural effusion is seen. The osseous structures are appropriate for thepatient's age. IMPRESSION: NO ACUTE CARDIOPULMONARY PROCESS. Interpreting Physician: JUJU CARCAMO M.D. Read on: May 05 20145:57A Transcribed by: mrr On: May 05 2014 8:50A Approved Electronically by: JUJU CARCAMO M.D. on: May 05 20147:30P Ordering DR: Attending DR: CROW TIERNEY us Historical Provider MD MERIDA XR PROCEDURES Final R esult * XR Shoulder 2+ Vw (05/04/2014 7:46 PM AUDIOPROSTHOLOGIST) Anatomical Region Laterality Modality Shoulder N/A Radiographic Kathy ging 05/04/2014 7:46 PM AUDIOPROSTHOLOGIST Narrative 05/05/2014 7:30 PM AUDIOPROSTHOLOGIST XR Shoulder Min 2 Views L ??[id number] ??Acc#: ??[id number] DATE OF EXAM: ??May 04 2014 CLINICAL HISTORY: Left arm injury. RESULT: Internal rotation, external rotation, and scapula y-views of the left shoulder were obtained. ??Comparison with a prior study of 02/18/09 is made. ??No acute fracture or dislocation is seen. ??The humeral head articulates with the glenoid. ??Cystic change is noted in the humeral head. ??Spurring is present at the acromioclavicular joint. ??Limited views of the left chest reveal no acute pulmonary findings. IMPRESSION: 1. NO ACUTE SHOULDER FRACTURE OR DISLOCATION. 2. DEGENERATIVE CHANGE OF THE SHOULDER JOINT. Interpreting Physician: ??JUJU CARCAMO M.D. ??Read on: ??May 05 2014 8:56A Transcribed by: ??mrr ??On: May 05 2014 ??8:56A Approved Electronically by: ??JUJU CARCAMO M.D. ??on: ??May 05 2014 7:30P Ordering DR: Attending : CROW TIERNEY Procedure Note Provider, MD Joe - 10/21/2016 XR Shoulder Min 2 Views L [id number] Acc#: [id number] DATE OF EXAM: May 04 2014 CLINICAL HISTORY: Left arm injury. RESULT: Internal rotation, external rotation, and scapula y-views of the leftshoulder were obtained. Comparison with a prior study of 02/18/09 is made.No acute fracture or dislocation is seen. The humeral head articulateswith the glenoid. Cystic change is noted in the humeral head. Spurringis present at the acromioclavicular joint. Limited views of the leftchest reveal no acute pulmonary findings. IMPRESSION: 1. NO ACUTE SHOULDER FRACTURE OR DISLOCATION. 2. DEGENERATIVE CHANGE OF THE SHOULDER JOINT. Interpreting Physician: JUJU CARCAMO M.D. Read on: May 05 20148:56A Transcribed by: shannon On: May 05 2014 8:56A Approved Electronically by: JUJU CARCAMO M.D. on: May 05 20147:30P Ordering DR: Attending DR: CROW TIERNEY us Historical Provider IMG XR PROCEDURES Final R esult * Serum troponin I (05/04/2014 1:50 PM AUDIOPROSTHOLOGIST) Troponin I <0.04 0.00 - 0.10 ng/ml HISTORICAL RESULTS Serum 05/04/2014 1:50 PM AUDIOPROSTHOLOGIST Narrative HISTORICAL RESULTS - 05/04/2014 2:28 PM AUDIOPROSTHOLOGIST NEGATIVE: ??0.00 - 0.10 NG/ML INDETERMINATE: ??0.11 - 0.50 NG/ML POSITIVE: ??GREATER THAN 0.50 NG/ML us Historical Provider LAB BLOOD ORDERABLES Blessing l Result HISTORICAL RESULTS * Discharge Laboratory Cumulative Report (05/04/2014 12:00 AM AUDIOPROSTHOLOGIST) 05/04/2014 Narrative HISTORICAL RESULTS - 05/05/2014 1:15 AM AUDIOPROSTHOLOGIST Patient No: [id number] ? [facility] Patient Name: SIXTO CHAKRABORTY ?[facility] Age: 63 YRS ?: 1950 ?Sex:F ?[address] )[phone] ?? Adm Dt: 05/04/2014 ?[place], [place] ??[address] Created: 05/05/2014 ??0115 ?? Pt. Type: E ? Discharge Dt: 05/04/2014 ? Pathologists: Dilia Solorzano MD Admit Dr. Gonzalez Dr: CROW TIERNEY MD ? BLOOD CELL COUNTS ?Collection Date: ?05/04/14 ?Collection Time: ?1950 ? Ref Range: ?? Units: [4.00-10.50] /CMM ? WBC X 10^3 ? 10.97 H [4.20-5.40] ??/CMM ? RBC X 10^6 ?4.18 L [12.0-16.0] ??G/DL ? HGB ? 12.4 [37.0-47.0] ??% ?HCT ? 37.7 [77.0-97.0] ??FL ? MCV ? 90.2 [23.0-34.0] ??PG ? MCH ? 29.7 [32.0-36.0] ??% ?MCHC ?32.9 [11.5-14.5] ??% ?RDW ? 14.1 [150-400] ?? /CMM ? PLT X 10^3 ? 293 ?BLOOD CELL DIFFERENTIAL ?Collection Date: ?05/04/14 ?Collection Time: ?1950 ? Ref Range: ?? Units: [54.0-69.0] ??% ?NEUTROPHILS ? 59.3 [25.0-33.0] ??% ?LYMPHOCYTES ? 32.8 [0.0-13.0] ??% ?MONOCYTES ?7.1 [0.0-10.0] ??% ?EOSINOPHILS ?0.5 [0.0-1.0] ?? % ?BASOPHILS ?0.2 ? /CMM ? A LYMPHOCYTE ? 3.6 H [0.0-1.0] ?? % ?IMM GRAN % ? 0.1 [0.00-0.02] ??/CMM ? A IMM GRAN ?0.01 [1.1-1.9] ?? /CMM ? A MONOCYTE ? 0.8 L [1.4-6.5] ?? /CMM ? A NEUTROPHIL ? 6.5 [0.0-0.7] ?? /CMM ? A EOSINOPHIL ? 0.1 [0.0-0.2] ?? /CMM ? A BASOPHIL ? 0.0 Footnotes and Symbols: L = Low, H = High ?? CONTINUED ?Page: ?? 1 Patient No: [id number] ? [facility] Patient Name: SIXTO CHAKRABORTY ?[facility] Age: 63 YRS ?: 1950 ?Sex:F ?[address] )[phone] ?? Adm Dt: 05/04/2014 ?[place] ??[id number] Created: 05/05/2014 ??0115 ?? Pt. Type: E ? Discharge Dt: 05/04/2014 ? Pathologists: Dilia Solorzano MD Admit Dr. Gonzalez Dr: CROW TIERNEY MD ? GENERAL CHEMISTRY ?Collection Date: ?05/04/14 ? 05/04/14 ?Collection Time: ?1959 ? 1950 ? Ref Range: ?? Units: [134-143] ?? MMOL/L ? SODIUM ?140 ??[70-199] ?? MG/DL ?POC GLUCOSE ?293 H [3.4-5.0] ?? MMOL/L ? POTASSIUM ? 4.5 [99.0-108.0] MMOL/L ? CHLORIDE ?105.0 [23.0-32.0] ??MMOL/L ? TOTAL CO2 ?29.7 ?? [7-14] ?MMOL/L ? ANION GAP ?10 ??[70-199] ?? MG/DL ?GLUCOSE ? 287 Hf [280-301] ?? MOSM/K ? CALCULATED OSMO ? 292 [8.6-9.8] ?? MG/DL ?CALCIUM ?10.1 H [6.0-23.0] ??MG/DL ?BUN ?19.0 ??[10-20] ? B/C RATIO ?19 [0.60-1.30] ??MG/DL ?CREATININE ? 1.00 f ?05/04/14 1950 eGFR:60 ml/min/1.73sq.m if non -Welsh. eGFR: >70 ml/min/1.73sq.m if -Welsh. AVE GFR for 60-69 yr. age group: ??85 ml/min/173sq.m Calculated using MDRD Equation FOOTNOTE ADDED ON ?? 05/04/14 ?? AT 2009 BY 999 Footnotes and Symbols: H = High, f = Footnote GLUCOSE [...] ?? CONTINUED ?Page: ?? 2 Patient No: [id number] ? [facility] Patient Name: SIXTO CHAKRABORTY ?[facility] Age: 63 YRS ?: 1950 ?Sex:F ?[address] )[phone] ?? Adm Dt: 05/04/2014 ?[place] ??[id number] Created: 05/05/2014 ??0115 ?? Pt. Type: E ? Discharge Dt: 05/04/2014 ? Pathologists: Dilia Solorzano MD Admit Attend Dr: CROW TIERNEY MD ? CARDIAC CHEMISTRY ?Collection Date: ?05/04/14 ?Collection Time: ?1950 ? Ref Range: ?? Units: [0.00-0.10] ??NG/ML ?TROPONIN I ? <0.04 f ?URINALYSIS ?Collection Date: ?11/13/14 ?Collection Time: ?2125 ? Ref Range: ?? Units: [YELLOW] ? U COLOR ? YELLOW ??[CLEAR] ? U APPEARANCE ? CLEAR [1.003-1.030] ? U SPEC GRAVITY ? 1.030 [NEGATIVE] ?U LEUKO ESTRASE ?SMALL * [NEGATIVE] ?U NITRITE ? NEGATIVE ?? [6.0] ?U PH ? 7.0 [NEGATIVE] ?U PROTEIN ? NEGATIVE [NEGATIVE] ?U GLUCOSE ? >=1000 * [NEGATIVE] ?U KETONES ? NEGATIVE [0.2- 1.0] ?UROBILINOGEN ? 0.2 [NEGATIVE] ?U BILIRUBIN ? NEGATIVE [NEGATIVE] ?U BLOOD ? NEGATIVE ?? [0-2] ?U WBC ?25-50 * ?? [0-5] ?U RBC ? NOT SEEN ?? [0-2] ?U EPI CELLS ?0-2 [NEGATIVE] ?U BACTERIA ?NEGATIVE ?U YEASTS ?NEGATIVE ?? [0-4] ?U HYALINE CASTS ?0-2 Footnotes and Symbols: * = Abnormal, f = Footnote TROPONIN I (04/17/11 -- Current) NEGATIVE: ??0.00 - 0.10 NG/ML INDETERMINATE: ??0.11 - 0.50 NG/ML POSITIVE: ??GREATER THAN 0.50 NG/ML ?? CONTINUED ?Page: ?? 3 Patient No: [id number] ? [facility] Patient Name: SIXTO CHAKRABORTY ?[facility] Age: 63 YRS ?: 1950 ?Sex:F ?[address] )[phone] ?? Adm Dt: 05/04/2014 ?[place], [place] ??[address] Created: 05/05/2014 ??0115 ?? Pt. Type: E ? Discharge Dt: 05/04/2014 ? Pathologists: Dilia Solorzano MD Admit Attend Dr: CROW TIERNEY MD ?URINALYSIS ?Collection Date: ?05/04/14 ?Collection Time: ?2124 ? Ref Range: ?? Units: [NEGATIVE] ?U CRYSTALS ?NEGATIVE [NEGATIVE] ?U PATH CASTS ?NEGATIVE ?? END OF CHART ? Page: ?? 4 us Historical Provider MD LAB BLOOD ORDERABLES Blessing l Result HISTORICAL RESULTS * Microbiology Summary (05/04/2014 12:00 AM AUDIOPROSTHOLOGIST) 05/04/2014 Narrative HISTORICAL RESULTS - 05/07/2014 2:50 AM AUDIOPROSTHOLOGIST ? [facility] ?CLINICAL LABORATORIES ? MICROBIOLOGY REPORT PATIENT NAME: ??SIXTO CHAKRABORTY ?MED RECORD#: ??[id number] BIRTHDATE: ??1950 ?? AGE: ??63 YRS SEX: F ?PATIENT#: ? [id number] ADMITTING DR: ??CROW TIERNEY MD ? ATTENDING DR: ??CROW TIERNEY MD ? ACCESSION#: ?? [id number] CREATED: ??05/07/14 ?? 0239 ? ADMIT DATE: ?? 05/04/14 ? MICRO - URINE URINE CULTURE ? Collected: 05/04/142124 ? Received: 05/04/142140 Source: CLEAN CATCH URINE ? Started: 05/04/142217 ?05/05/14 0618 ? NO GROWTH ?05/06/14 0608 ? NO GROWTH ?? END OF CHART us Historical Provider LAB MICROBIOLOGY - GENERA L ORDERABLES Final Result HISTORICAL RESULTS * ELECTROCARDIOGRAPHY (ECG) (05/04/2014) Narrative 05/04/2014 Ordered by an unspecified provider. us Historical Provider ECG ORDERABLES Final Res ult documented in this encounter Visit Diagnoses Diagnosis Type I diabetes mellitus (HCC) Type I (juvenile type) diabetes mellitus without mention of complication, not stated as uncontrolled Myalgia and myositis Unspecified myalgia and myositis Essential hypertension Unspecified essential hypertension Anemia, unspecified type Gastritis without bleeding, unspecified chronicity, unspecified gastritis type documented in this encounter
--- OUTSIDE RECORDS SUMMARY | 2024-07-04 04:26 | XMS_ITS | Encounter Summary ---
Author Organization [facility] Healthcare Address [address] [place] [address] Care Team Providers Care Return Clerk Name Role Phone Unavailable Primary Care Provider Unavailabl e Encounter Details Date Type Department Care Team (Late st Contact Info) Description 11/09/2012 3:26 PM CDT - 11/09/2012 6:15 PM CDT Hospital Encounter [facility] Brigid Manning MD [address] [facility] [place] [address] Procedure not carried out for other reasons Social History Tobacco Use Types Packs/Day Years Used Date Smoking Tobacco: Never Assessed Comments Unknown Sex and Gender Information Value Date Recorded Sex Assigned at Not on file Legal Sex Female 9:03 AM TOUCH UP PAINTER HAND Gender Identity Female 02/08/2020 6:39 PM CDT Sexual Orientation Not on file documented as of this encounter Plan of Treatment Upcoming Encounters Date Type Department Care Team (Latest Contact Info) Description 07/13/2024 9:00 AM TOUCH UP PAINTER HAND Hospital Encounter [facility] [address] [place] [address] Jaya Grier MD [address] [facility] [address] [address] 07/13/2024 9:00 AM TOUCH UP PAINTER HAND - 07/13/2024 9:30 AM TOUCH UP PAINTER HAND Surgery [facility] [address] [place] [address] Jaya Grier MD [address] [facility] [place] [address] ESOPHAGOGASTRODUODENOSCOPY Scheduled Procedures Name Priority Associated Diagnoses Date/Ti me ESOPHAGOGASTRODUODENOSCOPY Anemia, unspecified type Gastritis without bleeding, unspecified chronicity, unspecified gastritis type 07/13/2024 9:00 AM TOUCH UP PAINTER HAND COLONOSCOPY Iron deficiency anemia due to chronic blood loss documented as of this encounter Visit Diagnoses Diagnosis Procedure not carried out for other reasons Anemia, unspecified type Gastritis without bleeding, unspecified chronicity, unspecified gastritis type documented in this encounter
--- OUTSIDE RECORDS SUMMARY | 2024-07-04 04:26 | XMS_ITS | Encounter Summary ---
Author Organization [facility] Healthcare Address [address] [place] [address] Care Team Providers Care Ingredient Mixer Name Role Phone Unavailable Primary Care Provider Unavailabl e Encounter Details Date Type Department Care Team (Late st Contact Info) Description 03/23/2009 7:25 PM CDT - 03/23/2009 11:59 PM CDT Hospital Encounter [facility] Anemia; Pain in joint, shoulder region; Cough Social History Tobacco Use Types Packs/Day Years Used Date Smoking Tobacco: Never Assessed Comments Unknown Sex and Gender Information Value Date Recorded Sex Assigned at Not on file Legal Sex Female 9:03 AM INDUSTRIAL RELATIONS DIRECTOR Gender Identity Female 02/08/2020 6:39 PM CDT Sexual Orientation Not on file documented as of this encounter Plan of Treatment Upcoming Encounters Date Type Department Care Team (Latest Contact Info) Description 07/13/2024 9:00 AM INDUSTRIAL RELATIONS DIRECTOR Hospital Encounter [facility] GI Lab [address] [place] [address] Jaya Grier MD [address] [place] [id number] 07/13/2024 9:00 AM INDUSTRIAL RELATIONS DIRECTOR - 07/13/2024 9:30 AM INDUSTRIAL RELATIONS DIRECTOR Surgery [facility] GI Lab [address] [place] [address] Jaya Grier MD [address] [place] [address] [place] [id number] ESOPHAGOGASTRODUODENOSCOPY Scheduled Procedures Name Priority Associated Diagnoses Date/Ti me ESOPHAGOGASTRODUODENOSCOPY Anemia, unspecified type Gastritis without bleeding, unspecified chronicity, unspecified gastritis type 07/13/2024 9:00 AM INDUSTRIAL RELATIONS DIRECTOR COLONOSCOPY Iron deficiency anemia due to chronic blood loss documented as of this encounter Visit Diagnoses Diagnosis Anemia Unspecified anemia Pain in joint, shoulder region Cough Anemia, unspecified type Gastritis without bleeding, unspecified chronicity, unspecified gastritis type documented in this encounter
--- OUTSIDE RECORDS SUMMARY | 2024-07-04 04:26 | XMS_ITS | Encounter Summary ---
Author Organization [facility] Healthcare Address [address] [place] [address] Care Team Providers Care Brush Finisher Name Role Phone Unavailable Primary Care Provider Unavailabl e Encounter Details Date Type Department Care Team (Latest Contact Info) Description 01/25/2009 4:25 PM CDT - 01/25/2009 11:59 PM CDT Hospital Encounter [facility] Vaginitis and vulvovaginitis Social History Tobacco Use Types Packs/Day Years Used Date Smoking Tobacco: Never Assessed Comments Unknown Sex and Gender Information Value Date Recorded Sex Assigned at Not on file Legal Sex Female 9:03 AM BUTCHERETTE Gender Identity Female 02/08/2020 6:39 PM CDT Sexual Orientation Not on file documented as of this encounter Plan of Treatment Upcoming Encounters Date Type Department Care Team (Latest Contact Info) Description 07/13/2024 9:00 AM BUTCHERETTE Hospital Encounter [facility] GI Lab [address] [place] [address] Jaya Grier MD [facility] [facility] [address] [place] [address] 07/13/2024 9:00 AM BUTCHERETTE - 07/13/2024 9:30 AM BUTCHERETTE Surgery [facility] GI Lab [address] [place] [address] Jaya Grier MD [facility] [facility] [address] [place] [address] ESOPHAGOGASTRODUODENOSCOPY Scheduled Procedures Name Priority Associated Diagnoses Date/Ti me ESOPHAGOGASTRODUODENOSCOPY Anemia, unspecified type Gastritis without bleeding, unspecified chronicity, unspecified gastritis type 07/13/2024 9:00 AM BUTCHERETTE COLONOSCOPY Iron deficiency anemia due to chronic blood loss documented as of this encounter Visit Diagnoses Diagnosis Vaginitis and vulvovaginitis Anemia, unspecified type Gastritis without bleeding, unspecified chronicity, unspecified gastritis type documented in this encounter
--- OUTSIDE RECORDS SUMMARY | 2024-07-04 04:26 | XMS_ITS | Encounter Summary ---
Author Organization [facility] Healthcare Address [address] [place] [address] Care Team Providers Care Metal Rolling Mill Operator Name Role Phone Unavailable Primary Care Provider Unavailabl e Encounter Details Date Type Department Care Team (Late st Contact Info) Description 09/26/2007 9:40 PM CDT - 09/26/2007 10:50 PM CDT Hospital Encounter [facility] Phil Gentile MD [address] [address] Alla Miranda MD [address] [place] [address] Social History Tobacco Use Types Packs/Day Years Used Date Smoking Tobacco: Never Assessed Comments Unknown Sex and Gender Information Value Date Recorded Sex Assigned at Not on file Legal Sex Female 9:03 AM UPHOLSTERY DEPARTMENT SUPERVISOR Gender Identity Female 02/08/2020 6:39 PM CDT Sexual Orientation Not on file documented as of this encounter Plan of Treatment Upcoming Encounters Date Type Department Care Team (Latest Contact Info) Description 07/13/2024 9:00 AM UPHOLSTERY DEPARTMENT SUPERVISOR Hospital Encounter [facility] GI Lab [address] [place] [address] Jaya Grier MD [address] [address] 07/13/2024 9:00 AM UPHOLSTERY DEPARTMENT SUPERVISOR - 07/13/2024 9:30 AM UPHOLSTERY DEPARTMENT SUPERVISOR Surgery [facility] GI Lab [address] [place] [address] Jaya Grier MD [address] [facility] [address] [place] [address] ESOPHAGOGASTRODUODENOSCOPY Scheduled Procedures Name Priority Associated Diagnoses Date/Ti me ESOPHAGOGASTRODUODENOSCOPY Anemia, unspecified type Gastritis without bleeding, unspecified chronicity, unspecified gastritis type 07/13/2024 9:00 AM UPHOLSTERY DEPARTMENT SUPERVISOR COLONOSCOPY Iron deficiency anemia due to chronic blood loss documented as of this encounter Visit Diagnoses Not on filedocumented in this encounter
--- OUTSIDE RECORDS SUMMARY | 2024-07-04 04:26 | XMS_ITS | Encounter Summary ---
Author Organization [facility] Healthcare Address [address] [place] [address] Care Team Providers Care Videogame Tester Name Role Phone Unavailable Primary Care Provider Unavailabl e Encounter Details Date Type Department Care Team (Late st Contact Info) Description 11/08/2015 10:24 AM CDT - 11/08/2015 11:59 PM CDT Hospital Encounter [facility] Edin Torrez MD [address] [place] [address] Encounter for screening mammogram for malignant neoplasm of breast; Pelvic and perineal pain Social History Tobacco Use Types Packs/Day Years Used Date Smoking Tobacco: Never Assessed Comments Unknown Sex and Gender Information Value Date Recorded Sex Assigned at Not on file Legal Sex Female 9:03 AM EVP MANAGING DIRECTOR Gender Identity Female 02/08/2020 6:39 PM CDT Sexual Orientation Not on file documented as of this encounter Plan of Treatment Upcoming Encounters Date Type Department Care Team (Latest Contact Info) Description 07/13/2024 9:00 AM EVP MANAGING DIRECTOR Hospital Encounter [facility] GI Lab [address] [place] [address] Jaya Grier MD [address] [address] 07/13/2024 9:00 AM EVP MANAGING DIRECTOR - 07/13/2024 9:30 AM EVP MANAGING DIRECTOR Surgery [facility] GI Lab [address] [place] [address] Jaya Grier MD [address] [facility] [address] [place] [address] ESOPHAGOGASTRODUODENOSCOPY Scheduled Procedures Name Priority Associated Diagnoses Date/Ti me ESOPHAGOGASTRODUODENOSCOPY Anemia, unspecified type Gastritis without bleeding, unspecified chronicity, unspecified gastritis type 07/13/2024 9:00 AM EVP MANAGING DIRECTOR COLONOSCOPY Iron deficiency anemia due to chronic blood loss documented as of this encounter Procedures Procedure Name Priority Date/Time Associated Diagnosis Comments US PELVIS COMPLETE Routine 11/08/2015 12 :06 PM CDT DIAGNOSTIC MAMMOGRAM BILATERAL W STALIN Routine 11/08/2015 11:16 AM CDT documented in this encounter Results * US Pelvis Complete (11/08/2015 12:06 PM CDT) Anatomical Region Laterality Modality Pelvis N/A Ultrasound 11/08/2015 12:0 6 PM CDT Narrative 11/08/2015 5:39 PM CDT Td US Pelvis ??Acc#: ??[id number] US Transvaginal ??Acc#: ??[id number] DATE OF EXAM: ??Nov 08 2015 CLINICAL HISTORY: Pelvic and perineal pain with spotting. RESULT: Transabdominal and transvaginal scanning was performed. The uterus measures 6.4 x 3.1 x 4.3 cm and appears normal. The endometrial complex is normal at 5 mm. The ovaries are not visualized in either transabdominal or transvaginal scanning. No obvious adnexal mass or free fluid is noted. IMPRESSION: 1. ??NORMAL APPEARING UTERUS. 2. ??NONVISUALIZATION OF THE OVARIES. Interpreting Physician: ??DR TOY SULLIVAN M.D. ??Read on: ??Nov 08 2015 2:04P Transcribed by: ??TXD ??On: Nov 08 2015 ??2:04P Approved Electronically by: ??LAURIE Vicente, DR YEAGER ??on: ??Nov 08 2015 5:38P Attending: ??SHERMAN SMALLWOOD Requesting: ??SHERMAN SMALLWOOD Requesting Fax: ??-- Attending Fax: ??-- Attending ID: ??[id number] Requesting ID: ??[id number] Report To 1 ID: ??[id number] Report To 1 Name: ??SHERMAN SMALLWOOD Report To 1 FAX: ??-- NextGen Order #: Procedure Note Provider, MD Joe - 10/21/2016 Td US Pelvis Acc#: [id number] US Transvaginal Acc#: [id number] DATE OF EXAM: Nov 08 2015 CLINICAL HISTORY: Pelvic and perineal pain with spotting. RESULT: Transabdominal and transvaginal scanning was performed. The uterusmeasures 6.4 x 3.1 x 4.3 cm and appears normal. The endometrial complex isnormal at 5 mm. The ovaries are not visualized in either transabdominal ortransvaginal scanning. No obvious adnexal mass or free fluid is noted. IMPRESSION: 1. NORMAL APPEARING UTERUS. 2. NONVISUALIZATION OF THE OVARIES. Interpreting Physician: DR TOY SULLIVAN M.D. Read on: Nov 08 20152:04P Transcribed by: CELINA On: Nov 08 2015 2:04P Approved Electronically by: LAURIE Vicente, DR YEAGER on: Nov 08 20155:38P Attending: SHERMAN SMALLWOOD Requesting: SHERMAN SMALLWOOD Requesting Fax: -- Attending Fax: -- Attending ID: [id number] Requesting ID: [id number] Report To 1 ID: [id number] Report To 1 Name: SHERMAN SMALLWOOD Report To 1 FAX: -- NextGen Order #: us Historical Provider IMDiaz US PROCEDURES Final R esult * Diagnostic Mammogram Bilateral W Stalin (11/08/2015 11:16 AM CDT) Anatomical Region Laterality Modality Breast Bilateral Mammography 11/08/2015 11:1 6 AM CDT Narrative 11/08/2015 4:45 PM CDT TD MAMMOGRAM PERFORMED BY: DR SCREENING MAMM W STALIN BI ??Acc#: ??[id number] Screening Mamm Bi ??Acc#: ??[id number] DATE OF EXAM: ??Nov 08 2015 CLINICAL HISTORY: Screen. RESULT: Two views of each breast with bilateral breast tomosynthesis obtained. There is a report from a study dated 05/24/07, but the films are no longer available for comparison. There are scattered fibroglandular densities bilaterally. There is a coarse benign calcification in the anterior lateral upper aspect of the left breast and near it is a 4 mm noncalcified well-circumscribed nodule that has a benign appearance, possibly a small inframammary lymph node. No suspicious mass or calcification is seen to suggest mammographic evidence of malignancy. IMPRESSION: 1. ??NO DEFINITIVE MAMMOGRAPHIC EVIDENCE OF MALIGNANCY. 2. ??ANNUAL FOLLOWUP RECOMMENDED. BI-RADS CATEGORY 2 - BENIGN Interpreting Physician: ??AUGUSTINA FELTON M.D. ??Read on: ??Nov 08 2015 11:18A Transcribed by: ??TXD ??On: Nov 08 2015 11:54A Approved Electronically by: ??AUGUSTINA FELTON M.D. ??on: ??Nov 08 2015 ??4:45P Attending: ??SHERMAN SMALLWOOD Requesting: ??SHERMAN SMALLWOOD Requesting Fax: ??-- Attending Fax: ??-- Attending ID: ??[id number] Requesting ID: ??[id number] Report To 1 ID: ??[id number] Report To 1 Name: ??SHERMAN SMALLWOOD Report To 1 FAX: ??-- NextGen Order #: Procedure Note Provider, MD Joe - 10/21/2016 TD MAMMOGRAM PERFORMED BY: SCREENING MAMM W STALIN BI Acc#: [id number] Screening Mamm Bi Acc#: [id number] DATE OF EXAM: Nov 08 2015 CLINICAL HISTORY: Screen. RESULT: Two views of each breast with bilateral breast tomosynthesis obtained.There is a report from a study dated 05/24/07, but the films are no longeravailable for comparison. There are scattered fibroglandular densitiesbilaterally. There is a coarse benign calcification in the anteriorlateral upper aspect of the left breast and near it is a 4 mm noncalcifiedwell-circumscribed nodule that has a benign appearance, possibly a smallinframammary lymph node. No suspicious mass or calcification is seen tosuggest mammographic evidence of malignancy. IMPRESSION: 1. NO DEFINITIVE MAMMOGRAPHIC EVIDENCE OF MALIGNANCY. 2. ANNUAL FOLLOWUP RECOMMENDED. BI-RADS CATEGORY 2 - BENIGN Interpreting Physician: AUGUSTINA FELTON M.D. Read on: Nov 08 2015 11:18A Transcribed by: TXD On: Nov 08 2015 11:54A Approved Electronically by: AUGUSTINA FELTON M.D. on: Nov 08 2015 4:45P Attending: SHERMAN SMALLWOOD Requesting: SHERMAN SMALLWOOD Requesting Fax: -- Attending Fax: -- Attending ID: [id number] Requesting ID: [id number] Report To 1 ID: [id number] Report To 1 Name: SHERMAN SMALLWOOD Report To 1 FAX: -- NextGen Order #: Historical Provider MD MERIDA MAMMO PROCEDURES Blessing l Result documented in this encounter Visit Diagnoses Diagnosis Encounter for screening mammogram for malignant neoplasm of breast Pelvic and perineal pain Anemia, unspecified type Gastritis without bleeding, unspecified chronicity, unspecified gastritis type documented in this encounter
--- OUTSIDE RECORDS SUMMARY | 2024-07-04 04:26 | XMS_ITS | Encounter Summary ---
Author Organization [facility] Healthcare Address [address] [place] [address] Care Team Providers Care Dispatch Lead Name Role Phone Unavailable Primary Care Provider Unavailabl e Encounter Details Date Type Department Care Team (Late st Contact Info) Description 11/23/2011 1:01 PM CDT - 11/23/2011 3:59 PM CDT Hospital Encounter [facility] Aldo Hanson MD [address] [facility] [address] [place] [address] Superficial injury of cornea Social History Tobacco Use Types Packs/Day Years Used Date Smoking Tobacco: Never Assessed Comments Unknown Sex and Gender Information Value Date Recorded Sex Assigned at Not on file Legal Sex Female 9:03 AM FIBERGLASS PIPE COVERING SUPERVISOR Gender Identity Female 02/08/2020 6:39 PM CDT Sexual Orientation Not on file documented as of this encounter Plan of Treatment Upcoming Encounters Date Type Department Care Team (Latest Contact Info) Description 07/13/2024 9:00 AM FIBERGLASS PIPE COVERING SUPERVISOR Hospital Encounter [facility] GI Lab [address] [place] [address] Jaya Grier MD [address] [facility] [address] [place] [address] 07/13/2024 9:00 AM FIBERGLASS PIPE COVERING SUPERVISOR - 07/13/2024 9:30 AM FIBERGLASS PIPE COVERING SUPERVISOR Surgery [facility] GI Lab [address] [place] [address] Jaya Grier MD [address] [facility] [address] [place] [address] ESOPHAGOGASTRODUODENOSCOPY Scheduled Procedures Name Priority Associated Diagnoses Date/Ti me ESOPHAGOGASTRODUODENOSCOPY Anemia, unspecified type Gastritis without bleeding, unspecified chronicity, unspecified gastritis type 07/13/2024 9:00 AM FIBERGLASS PIPE COVERING SUPERVISOR COLONOSCOPY Iron deficiency anemia due to chronic blood loss documented as of this encounter Visit Diagnoses Diagnosis Superficial injury of cornea Anemia, unspecified type Gastritis without bleeding, unspecified chronicity, unspecified gastritis type documented in this encounter
--- OUTSIDE RECORDS SUMMARY | 2024-07-04 04:26 | XMS_ITS | Encounter Summary ---
Author Organization [facility] Healthcare Address [address] [place] [address] Care Team Providers Care Supervisor Fur Dressing Name Role Phone Unavailable Primary Care Provider Unavailabl e Encounter Details Date Type Department Care Team (Late st Contact Info) Description 10/15/2013 9:14 PM CDT - 10/16/2013 12:55 AM CDT Hospital Encounter [facility] Celso Nayak MD [address] [place] [address] Allergic state; Disorder of salivary gland; Rash and other nonspecific skin eruption; Pruritic disorder; Drug or medicinal substance causing adverse effect in therapeutic use; Unspecified place of occurrence Social History Tobacco Use Types Packs/Day Years Used Date Smoking Tobacco: Never Assessed Comments Unknown Sex and Gender Information Value Date Recorded Sex Assigned at Not on file Legal Sex Female 9:03 AM QUALITY REVIEW TRAINER Gender Identity Female 02/08/2020 6:39 PM CDT Sexual Orientation Not on file documented as of this encounter Plan of Treatment Upcoming Encounters Date Type Department Care Team (Latest Contact Info) Description 07/13/2024 9:00 AM QUALITY REVIEW TRAINER Hospital Encounter [facility] GI Lab [address] [place] [address] Jaya Grier MD [address] [id number] 07/13/2024 9:00 AM QUALITY REVIEW TRAINER - 07/13/2024 9:30 AM QUALITY REVIEW TRAINER Surgery [facility] GI Lab [address] [place] [address] Jaya Grier MD [address] [address] ESOPHAGOGASTRODUODENOSCOPY Scheduled Procedures Name Priority Associated Diagnoses Date/Ti me ESOPHAGOGASTRODUODENOSCOPY Anemia, unspecified type Gastritis without bleeding, unspecified chronicity, unspecified gastritis type 07/13/2024 9:00 AM QUALITY REVIEW TRAINER COLONOSCOPY Iron deficiency anemia due to chronic blood loss documented as of this encounter Procedures Procedure Name Priority Date/Time Associated Diagnosis Comments DISCHARGE CUMULATIVE SUMMARY ADDENDUM Routine 10/19/2013 12:37 AM CDT URINE MICROSCOPY Routine 10/16/2013 12:1 5 AM CDT URINALYSIS Routine 10/16/2013 12:15 AM CDT DISCHARGE LABORATORY CUMULATIVE REPORT Routine 10/16/2013 12:00 AM CDT ELECTROCARDIOGRAPHY (ECG) 10/15/2013 MICROBIOLOGY SUMMARY Routine 10/15/2013 12:00 AM CDT documented in this encounter Results * Discharge Cumulative Summary Addendum (10/19/2013 12:37 AM CDT) 10/19/2013 12:3 7 AM CDT Narrative HISTORICAL RESULTS - 10/19/2013 12:37 AM CDT Patient No: [id number] ? [facility] Patient Name: SIXTO CHAKRABORTY ?[facility] Healthcare Age: 62 YRS ?: 1950 ?Sex:F ?[address] )[phone] ?? Adm Dt: 10/15/2013 ?[place], [place] ??[address] Created: 10/19/2013 ??0037 ?? Pt. Type: E ? Discharge Dt: 10/16/2013 ? Pathologists: Dilia Solorzano MD Admit Dr. Gonzalez Dr: CELSO GENTILE MD ? MICRO - URINE URINE CULTURE ? Collected: 10/16/13 0015 ? Received: 10/16/13 0050 Source: CLEAN CATCH URINE ? Started: 10/16/13 0123 ? PRELIMINARY REPORT ?10/17/13 0636 ? LESS THAN 10,000 CFU/ml MULTIPLE GRAM POSITIVE ORGANISMS ? (SENSITIVITIES NOT PERFORMED) ? FINAL REPORT ?10/18/13 0631 ? LESS THAN 10,000 CFU/ml MULTIPLE GRAM POSITIVE ORGANISMS ? (SENSITIVITIES NOT PERFORMED) ?? END OF CHART ? Page: ?? 1 us Historical Provider LAB MICROBIOLOGY - GENERA L ORDERABLES Final Result HISTORICAL RESULTS * (ABNORMAL) Urinalysis (10/16/2013 12:15 AM CDT) Color, ur YELLOW YELLOW HISTORICAL RESULTS Clarity, ur CLEAR CLEAR HISTORIC AL RESULTS Specific gravity, ur 1.023 1.003 - 1.030 gu HISTORICAL RESULTS Leukocyte esterase, ur SMALL(A) NEGATIVE HISTORICAL RESULTS Nitrites, ur Negative NEGATIVE HISTORI ARIES RESULTS pH, ur 6.0 6.0 HISTORICAL RESULTS Protein, ur Negative NEGATIVE HISTORIC AL RESULTS Glucose, ur >=1000(A) NEGATIVE HISTORIC AL RESULTS Ketones, ur Negative NEGATIVE HISTORIC AL RESULTS Urobilinogen, quant, ur 0.2 0.2 - 1.0 mg/dl HISTORICAL RESULTS Bilirubin, ur Negative NEGATIVE HISTOR ICAL RESULTS U Blood Negative NEGATIVE HISTORICAL RESULTS Urine 10/16/2013 12:1 5 AM CDT Celso Gentile MD LAB BLOOD ORDERABLES Final Result Performing Organization Address [facility] de Phone Number HISTORICAL RESULTS * (ABNORMAL) Urine microscopy (10/16/2013 12:15 AM CDT) WBC, ur 10 - 25(A) 0 - 2 /hpf HISTORIC AL RESULTS RBC, ur 2 - 5(A) 0 - 5 /hpf HISTORICA L RESULTS Epithelial cells, ur 0 - 2 0 - 2 /hpf HISTORICAL RESULTS Bacteria, ur Negative NEGATIVE /hpf HISTORICAL RESULTS Hyaline casts 0 - 2 0 - 4 /lpf HISTO RICAL RESULTS Crystals, ur Negative NEGATIVE HISTORI ARIES RESULTS Yeast, ur Negative NEGATIVE HISTORICAL RESULTS Pathological casts, ur Negative NEGATIVE HISTORICAL RESULTS Urine 10/16/2013 12:1 5 AM CDT Celso Gentile MD LAB BLOOD ORDERABLES Final Result Performing Organization Address [facility] de Phone Number HISTORICAL RESULTS * Discharge Laboratory Cumulative Report (10/16/2013 12:00 AM CDT) 10/16/2013 Narrative HISTORICAL RESULTS - 10/16/2013 2:36 AM CDT Patient No: [id number] ? [facility] Patient Name: SIXTO CHAKRABORTY ?[facility] Age: 62 YRS ?: 1950 ?Sex:F ?[address] )[phone] ?? Adm Dt: 10/15/2013 ?[place], [place] ??[address] Created: 10/16/2013 ??0236 ?? Pt. Type: E ? Discharge Dt: 10/16/2013 ? Pathologists: Dilia Solorzano MD Admit Attend Dr: CELSO GENTILE MD ?URINALYSIS ?Collection Date: ?04/27/14 ?Collection Time: ?0015 ? Ref Range: ?? Units: [YELLOW] ? U COLOR ? YELLOW ??[CLEAR] ? U APPEARANCE ? CLEAR [1.003-1.030] ? U SPEC GRAVITY ? 1.023 [NEGATIVE] ?U LEUKO ESTRASE ?SMALL * [NEGATIVE] ?U NITRITE ? NEGATIVE ?? [6.0] ?U PH ? 6.0 [NEGATIVE] ?U PROTEIN ? NEGATIVE [NEGATIVE] ?U GLUCOSE ? >=1000 * [NEGATIVE] ?U KETONES ? NEGATIVE [0.2- 1.0] ?UROBILINOGEN ? 0.2 [NEGATIVE] ?U BILIRUBIN ? NEGATIVE [NEGATIVE] ?U BLOOD ? NEGATIVE ?? [0-2] ?U WBC ?10-25 * ?? [0-5] ?U RBC ?2-5 * ?? [0-2] ?U EPI CELLS ?0-2 [NEGATIVE] ?U BACTERIA ?NEGATIVE ?U YEASTS ?NEGATIVE ?? [0-4] ?U HYALINE CASTS ?0-2 [NEGATIVE] ?U CRYSTALS ?NEGATIVE [NEGATIVE] ?U PATH CASTS ?NEGATIVE Footnotes and Symbols: * = Abnormal ?? END OF CHART ? Page: ?? 1 us Historical Provider MD LAB BLOOD ORDERABLES Blessing l Result HISTORICAL RESULTS * Microbiology Summary (10/15/2013 12:00 AM CDT) 10/15/2013 Narrative HISTORICAL RESULTS - 10/19/2013 12:37 AM CDT ? [facility] ?CLINICAL LABORATORIES ? MICROBIOLOGY REPORT PATIENT NAME: ??SIXTO CHAKRABORTY ?MED RECORD#: ??[id number] BIRTHDATE: ??1950 ?? AGE: ??62 YRS SEX: F ?PATIENT#: ? [id number] ADM[address]ING DR: ??CELSO GENTILE MD ? ATTENDING DR: ??CELSO GENTILE MD ? ACCESSION#: ?? [id number] CREATED: ??10/19/13 ?? 0036 ? ADMIT DATE: ?? 10/15/13 ? MICRO - URINE URINE CULTURE ? Collected: 10/16/13 0015 ? Received: 10/16/13 0050 Source: CLEAN CATCH URINE ? Started: 10/16/13 0123 ?10/17/13 0636 ? LESS THAN 10,000 CFU/ml MULTIPLE GRAM POSITIVE ORGANISMS ? (SENSITIVITIES NOT PERFORMED) ?10/18/13 0631 ? LESS THAN 10,000 CFU/ml MULTIPLE GRAM POSITIVE ORGANISMS ? (SENSITIVITIES NOT PERFORMED) ?? END OF CHART Historical Provider LAB MICROBIOLOGY - GENERA L ORDERABLES Final Result HISTORICAL RESULTS * ELECTROCARDIOGRAPHY (ECG) (10/15/2013) Narrative 10/15/2013 Ordered by an unspecified provider. Historical Provider ECG ORDERABLES Final Res ult documented in this encounter Visit Diagnoses Diagnosis Allergic state Allergy, unspecified not elsewhere classified Disorder of salivary gland Unspecified disease of the salivary glands Rash and other nonspecific skin eruption Pruritic disorder Unspecified pruritic disorder Drug or medicinal substance causing adverse effect in therapeutic use Unspecified adverse effect of unspecified drug, medicinal and biological substance Unspecified place of occurrence Anemia, unspecified type Gastritis without bleeding, unspecified chronicity, unspecified gastritis type documented in this encounter
--- OUTSIDE RECORDS SUMMARY | 2024-07-04 04:26 | XMS_ITS | Encounter Summary ---
Author Organization [facility] Healthcare Address [address] [place] [address] Care Team Providers Care Overlay Plastician Name Role Phone Unavailable Primary Care Provider Unavailabl e Encounter Details Date Type Department Care Team (Late st Contact Info) Description 02/04/2008 4:42 PM CDT - 02/04/2008 11:59 PM CDT Hospital Encounter [facility] Social History Tobacco Use Types Packs/Day Years Used Date Smoking Tobacco: Never Assessed Comments Unknown Sex and Gender Information Value Date Recorded Sex Assigned at Not on file Legal Sex Female 9:03 AM MOBILE HOME LABORER Gender Identity Female 02/08/2020 6:39 PM CDT Sexual Orientation Not on file documented as of this encounter Plan of Treatment Upcoming Encounters Date Type Department Care Team (Latest Contact Info) Description 07/13/2024 9:00 AM MOBILE HOME LABORER Hospital Encounter [facility] GI Lab [address] [place] [address] Jaya Grier MD [address] [place] [address] 07/13/2024 9:00 AM MOBILE HOME LABORER - 07/13/2024 9:30 AM MOBILE HOME LABORER Surgery [facility] [address] [place] [address] Jaya Grier MD [address] [place] [address] ESOPHAGOGASTRODUODENOSCOPY Scheduled Procedures Name Priority Associated Diagnoses Date/Ti me ESOPHAGOGASTRODUODENOSCOPY Anemia, unspecified type Gastritis without bleeding, unspecified chronicity, unspecified gastritis type 07/13/2024 9:00 AM MOBILE HOME LABORER COLONOSCOPY Iron deficiency anemia due to chronic blood loss documented as of this encounter Visit Diagnoses Not on filedocumented in this encounter
--- OUTSIDE RECORDS SUMMARY | 2024-07-04 04:26 | XMS_ITS | Encounter Summary ---
Author Organization [facility] Healthcare Address [address] [place] [address] Care Team Providers Care Dairy And Food Laboratory Assistant Name Role Phone Unavailable Primary Care Provider Unavailabl e Encounter Details Date Type Department Care Team (Late st Contact Info) Description 02/01/2009 12:42 PM CDT - 02/01/2009 2:35 PM CDT Hospital Encounter [facility] Aldo Hanson MD [address] [facility] [address] [place] [address] Alla Miranda MD [address] [place] [address] Other specified disorders of rotator cuff syndrome of shoulder and allied disorders; Type 2 or unspecified type diabetes mellitus Social History Tobacco Use Types Packs/Day Years Used Date Smoking Tobacco: Never Assessed Comments Unknown Sex and Gender Information Value Date Recorded Sex Assigned at Not on file Legal Sex Female 9:03 AM ELECTRONICS MECHANIC Gender Identity Female 02/08/2020 6:39 PM CDT Sexual Orientation Not on file documented as of this encounter Plan of Treatment Upcoming Encounters Date Type Department Care Team (Latest Contact Info) Description 07/13/2024 9:00 AM ELECTRONICS MECHANIC Hospital Encounter [facility] GI Lab [address] [place] [address] Jaya Grier MD [address] [facility] [address] [place] [address] 07/13/2024 9:00 AM ELECTRONICS MECHANIC - 07/13/2024 9:30 AM ELECTRONICS MECHANIC Surgery [facility] GI Lab [address] [place] [address] Jaya Grier MD [facility] [facility] [address] [place] [address] ESOPHAGOGASTRODUODENOSCOPY Scheduled Procedures Name Priority Associated Diagnoses Date/Ti me ESOPHAGOGASTRODUODENOSCOPY Anemia, unspecified type Gastritis without bleeding, unspecified chronicity, unspecified gastritis type 07/13/2024 9:00 AM ELECTRONICS MECHANIC COLONOSCOPY Iron deficiency anemia due to chronic blood loss documented as of this encounter Visit Diagnoses Diagnosis Other specified disorders of rotator cuff syndrome of shoulder and allied disorders Type 2 or unspecified type diabetes mellitus Anemia, unspecified type Gastritis without bleeding, unspecified chronicity, unspecified gastritis type documented in this encounter
--- OUTSIDE RECORDS SUMMARY | 2024-07-04 04:26 | XMS_ITS | Encounter Summary ---
Author Organization [facility] Healthcare Address [address] [place] [address] Care Team Providers Care Bow Repairer Custom Name Role Phone Unavailable Primary Care Provider Unavailabl e Encounter Details Date Type Department Care Team (Late st Contact Info) Description 09/01/2011 10:26 AM CDT - 09/01/2011 11:59 PM CDT Hospital Encounter Chriss Card MD [address] [place] [address] Type 2 or unspecified type diabetes mellitus Social History Tobacco Use Types Packs/Day Years Used Date Smoking Tobacco: Never Assessed Comments Unknown Sex and Gender Information Value Date Recorded Sex Assigned at Not on file Legal Sex Female 9:03 AM ORGAN BUILDER Gender Identity Female 02/08/2020 6:39 PM CDT Sexual Orientation Not on file documented as of this encounter Plan of Treatment Upcoming Encounters Date Type Department Care Team (Latest Contact Info) Description 07/13/2024 9:00 AM ORGAN BUILDER Hospital Encounter [facility] GI Lab [address] [place] [address] Jaya Grier MD [address] [address] 07/13/2024 9:00 AM ORGAN BUILDER - 07/13/2024 9:30 AM ORGAN BUILDER Surgery [facility] GI Lab [address] [place] [address] Jaya Grier MD [address] [facility] [place] [address] ESOPHAGOGASTRODUODENOSCOPY Scheduled Procedures Name Priority Associated Diagnoses Date/Ti me ESOPHAGOGASTRODUODENOSCOPY Anemia, unspecified type Gastritis without bleeding, unspecified chronicity, unspecified gastritis type 07/13/2024 9:00 AM ORGAN BUILDER COLONOSCOPY Iron deficiency anemia due to chronic blood loss documented as of this encounter Visit Diagnoses Diagnosis Type 2 or unspecified type diabetes mellitus Anemia, unspecified type Gastritis without bleeding, unspecified chronicity, unspecified gastritis type documented in this encounter
--- OUTSIDE RECORDS SUMMARY | 2024-07-04 04:26 | XMS_ITS | Encounter Summary ---
Author Organization [facility] Healthcare Address [address] [place] [address] Care Team Providers Care Crime Lab Analyst Name Role Phone Unavailable Primary Care Provider Unavailabl e Encounter Details Date Type Department Care Team (Late st Contact Info) Description 12/26/2010 2:28 PM CDT - 12/26/2010 11:59 PM CDT Hospital Encounter [facility] Social History Tobacco Use Types Packs/Day Years Used Date Smoking Tobacco: Never Assessed Comments Unknown Sex and Gender Information Value Date Recorded Sex Assigned at Not on file Legal Sex Female 9:03 AM SENIOR CYBER SECURITY ANALYST Gender Identity Female 02/08/2020 6:39 PM CDT Sexual Orientation Not on file documented as of this encounter Plan of Treatment Upcoming Encounters Date Type Department Care Team (Latest Contact Info) Description 07/13/2024 9:00 AM SENIOR CYBER SECURITY ANALYST Hospital Encounter [facility] GI Lab [address] [place] [address] Jaya Grier MD [address] [facility] [address] [place] [address] 07/13/2024 9:00 AM SENIOR CYBER SECURITY ANALYST - 07/13/2024 9:30 AM SENIOR CYBER SECURITY ANALYST Surgery [facility] [address] [place] [address] Jaya Grier MD [address] [place] [address] ESOPHAGOGASTRODUODENOSCOPY Scheduled Procedures Name Priority Associated Diagnoses Date/Ti me ESOPHAGOGASTRODUODENOSCOPY Anemia, unspecified type Gastritis without bleeding, unspecified chronicity, unspecified gastritis type 07/13/2024 9:00 AM SENIOR CYBER SECURITY ANALYST COLONOSCOPY Iron deficiency anemia due to chronic blood loss documented as of this encounter Visit Diagnoses Not on filedocumented in this encounter
--- OUTSIDE RECORDS SUMMARY | 2024-07-04 04:26 | XMS_ITS | Encounter Summary ---
Author Organization [facility] Healthcare Address [address] [place] [address] Care Team Providers Care Learning Support Aide Name Role Phone Unavailable Primary Care Provider Unavailabl e Encounter Details Date Type Department Care Team (Latest Contact Info) Description 10/18/2010 11:18 AM CDT - 10/18/2010 11:59 PM CDT Hospital Encounter [facility] Other and unspecified hyperlipidemia Social History Tobacco Use Types Packs/Day Years Used Date Smoking Tobacco: Never Assessed Comments Unknown Sex and Gender Information Value Date Recorded Sex Assigned at Not on file Legal Sex Female 9:03 AM CONVEYOR WORKER Gender Identity Female 02/08/2020 6:39 PM CDT Sexual Orientation Not on file documented as of this encounter Plan of Treatment Upcoming Encounters Date Type Department Care Team (Latest Contact Info) Description 07/13/2024 9:00 AM CONVEYOR WORKER Hospital Encounter [facility] GI Lab [address] [place] [address] Jaya Grier MD [address] [facility] [address] [place] [address] 07/13/2024 9:00 AM CONVEYOR WORKER - 07/13/2024 9:30 AM CONVEYOR WORKER Surgery [facility] GI Lab [address] [place] [address] Jaya Grier MD [address] [facility] [address] [place] [address] ESOPHAGOGASTRODUODENOSCOPY Scheduled Procedures Name Priority Associated Diagnoses Date/Ti me ESOPHAGOGASTRODUODENOSCOPY Anemia, unspecified type Gastritis without bleeding, unspecified chronicity, unspecified gastritis type 07/13/2024 9:00 AM CONVEYOR WORKER COLONOSCOPY Iron deficiency anemia due to chronic blood loss documented as of this encounter Visit Diagnoses Diagnosis Other and unspecified hyperlipidemia Anemia, unspecified type Gastritis without bleeding, unspecified chronicity, unspecified gastritis type documented in this encounter
--- OUTSIDE RECORDS SUMMARY | 2024-07-04 04:26 | XMS_ITS | Encounter Summary ---
Author Organization [facility] Care Team Providers Care Site Administrator Name Role Phone Unavailable Primary Care Provider Unavailabl e Encounter Details Date Type Department Care Team (Late st Contact Info) Description 09/14/2008 7:55 AM CDT - 09/14/2008 4:00 PM CDT Hospital Encounter [facility] Perico Busby MD [address] [place] [address] Special screening for malignant neoplasms, colon; History of colonic polyps; Type 2 or unspecified type diabetes mellitus Social History Tobacco Use Types Packs/Day Years Used Date Smoking Tobacco: Never Assessed Comments Unknown Sex and Gender Information Value Date Recorded Sex Assigned at Not on file Legal Sex Female 9:03 AM CHASSIS ENGINEER Gender Identity Female 02/08/2020 6:39 PM CDT Sexual Orientation Not on file documented as of this encounter Plan of Treatment Upcoming Encounters Date Type Department Care Team (Latest Contact Info) Description 07/13/2024 9:00 AM CHASSIS ENGINEER Hospital Encounter [facility] GI Lab [address] [place] [address] Jaya Grier MD [address] [address] 07/13/2024 9:00 AM CHASSIS ENGINEER - 07/13/2024 9:30 AM CHASSIS ENGINEER Surgery [facility] GI Lab [address] [place] [address] Jaya Grier MD [address] [facility] [place] [address] ESOPHAGOGASTRODUODENOSCOPY Scheduled Procedures Name Priority Associated Diagnoses Date/Ti me ESOPHAGOGASTRODUODENOSCOPY Anemia, unspecified type Gastritis without bleeding, unspecified chronicity, unspecified gastritis type 07/13/2024 9:00 AM CHASSIS ENGINEER COLONOSCOPY Iron deficiency anemia due to chronic blood loss documented as of this encounter Visit Diagnoses Diagnosis Special screening for malignant neoplasms, colon History of colonic polyps Personal history of colonic polyps Type 2 or unspecified type diabetes mellitus Anemia, unspecified type Gastritis without bleeding, unspecified chronicity, unspecified gastritis type documented in this encounter
--- OUTSIDE RECORDS SUMMARY | 2024-07-04 04:27 | XMS_ITS | Encounter Summary ---
Author Organization [facility] Healthcare Address [address] [place] [address] Care Team Providers Care Automatic Spinning Lathe Operator Name Role Phone Unavailable Primary Care Provider Unavailabl e Encounter Details Date Type Department Care Team (Late st Contact Info) Description 11/30/2006 3:16 PM CDT - 11/30/2006 11:59 PM CDT Hospital Encounter [facility] Social History Tobacco Use Types Packs/Day Years Used Date Smoking Tobacco: Never Assessed Comments Unknown Sex and Gender Information Value Date Recorded Sex Assigned at Not on file Legal Sex Female 9:03 AM DOUBLE BOTTOM DRIVER Gender Identity Female 02/08/2020 6:39 PM CDT Sexual Orientation Not on file documented as of this encounter Plan of Treatment Upcoming Encounters Date Type Department Care Team (Latest Contact Info) Description 07/13/2024 9:00 AM DOUBLE BOTTOM DRIVER Hospital Encounter [facility] GI Lab [address] [place] [address] Jaya Grier MD [address] [facility] [address] [place] [address] 07/13/2024 9:00 AM DOUBLE BOTTOM DRIVER - 07/13/2024 9:30 AM DOUBLE BOTTOM DRIVER Surgery [facility] GI Lab [address] [place] [address] Jaya Grier MD [address] [place] [address] ESOPHAGOGASTRODUODENOSCOPY Scheduled Procedures Name Priority Associated Diagnoses Date/Ti me ESOPHAGOGASTRODUODENOSCOPY Anemia, unspecified type Gastritis without bleeding, unspecified chronicity, unspecified gastritis type 07/13/2024 9:00 AM DOUBLE BOTTOM DRIVER COLONOSCOPY Iron deficiency anemia due to chronic blood loss documented as of this encounter Visit Diagnoses Not on filedocumented in this encounter
--- OUTSIDE RECORDS SUMMARY | 2024-07-04 04:27 | XMS_ITS | Encounter Summary ---
Author Organization [facility] Healthcare Address [address] [place] [address] Care Team Providers Care Deck Lid Fitter Name Role Phone Unavailable Primary Care Provider Unavailabl e Encounter Details Date Type Department Care Team (Late st Contact Info) Description 10/29/2006 12:01 AM CDT - 10/29/2006 11:59 PM CDT Hospital Encounter [facility] Alla Varner MD [address] [place] [address] Social History Tobacco Use Types Packs/Day Years Used Date Smoking Tobacco: Never Assessed Comments Unknown Sex and Gender Information Value Date Recorded Sex Assigned at Not on file Legal Sex Female 9:03 AM DIRECTOR VIDEO Gender Identity Female 02/08/2020 6:39 PM CDT Sexual Orientation Not on file documented as of this encounter Plan of Treatment Upcoming Encounters Date Type Department Care Team (Latest Contact Info) Description 07/13/2024 9:00 AM DIRECTOR VIDEO Hospital Encounter [facility] GI Lab [address] [place] [address] Jaya Grier MD [address] [address] 07/13/2024 9:00 AM DIRECTOR VIDEO - 07/13/2024 9:30 AM DIRECTOR VIDEO Surgery [facility] GI Lab [address] [place] [address] Jaya Grier MD [facility] [address] [address] ESOPHAGOGASTRODUODENOSCOPY Scheduled Procedures Name Priority Associated Diagnoses Date/Ti me ESOPHAGOGASTRODUODENOSCOPY Anemia, unspecified type Gastritis without bleeding, unspecified chronicity, unspecified gastritis type 07/13/2024 9:00 AM DIRECTOR VIDEO COLONOSCOPY Iron deficiency anemia due to chronic blood loss documented as of this encounter Visit Diagnoses Not on filedocumented in this encounter
--- OUTSIDE RECORDS SUMMARY | 2024-07-04 04:27 | XMS_ITS | Encounter Summary ---
Author Organization [facility] Healthcare Address [address] [place] [address] Care Team Providers Care It Service Technician Name Role Phone Unavailable Primary Care Provider Unavailabl e Encounter Details Date Type Department Care Team (Late st Contact Info) Description 05/31/2007 12:01 AM IT TRAINER - 05/31/2007 11:59 PM IT TRAINER Hospital Encounter [facility] Alla Varner MD [address] [place] [address] Social History Tobacco Use Types Packs/Day Years Used Date Smoking Tobacco: Never Assessed Comments Unknown Sex and Gender Information Value Date Recorded Sex Assigned at Not on file Legal Sex Female 9:03 AM IT TRAINER Gender Identity Female 02/08/2020 6:39 PM CDT Sexual Orientation Not on file documented as of this encounter Plan of Treatment Upcoming Encounters Date Type Department Care Team (Latest Contact Info) Description 07/13/2024 9:00 AM IT TRAINER Hospital Encounter [facility] GI Lab [address] [place] [address] Jaya Grier MD [address] [address] 07/13/2024 9:00 AM IT TRAINER - 07/13/2024 9:30 AM IT TRAINER Surgery [facility] GI Lab [address] [place] [address] Jaya Grier MD [facility] [address] [address] ESOPHAGOGASTRODUODENOSCOPY Scheduled Procedures Name Priority Associated Diagnoses Date/Ti me ESOPHAGOGASTRODUODENOSCOPY Anemia, unspecified type Gastritis without bleeding, unspecified chronicity, unspecified gastritis type 07/13/2024 9:00 AM IT TRAINER COLONOSCOPY Iron deficiency anemia due to chronic blood loss documented as of this encounter Visit Diagnoses Not on filedocumented in this encounter
--- OUTSIDE RECORDS SUMMARY | 2024-07-04 04:27 | XMS_ITS | Encounter Summary ---
Author Organization [facility] Healthcare Address [address] [place] [address] Care Team Providers Care Hostel Manager Name Role Phone Unavailable Primary Care Provider Unavailabl e Encounter Details Date Type Department Care Team (Late st Contact Info) Description 11/07/2006 12:40 PM CDT - 11/07/2006 1:30 PM CDT Hospital Encounter [facility] Misael Deras Kathryn A., MD [address] [place] [address] Social History Tobacco Use Types Packs/Day Years Used Date Smoking Tobacco: Never Assessed Comments Unknown Sex and Gender Information Value Date Recorded Sex Assigned at Not on file Legal Sex Female 9:03 AM AIRFLIGHT ATTENDANTS SUPERVISOR Gender Identity Female 02/08/2020 6:39 PM CDT Sexual Orientation Not on file documented as of this encounter Plan of Treatment Upcoming Encounters Date Type Department Care Team (Latest Contact Info) Description 07/13/2024 9:00 AM AIRFLIGHT ATTENDANTS SUPERVISOR Hospital Encounter [facility] GI Lab [address] [place] [address] Jaya Grier MD [address] [address] 07/13/2024 9:00 AM AIRFLIGHT ATTENDANTS SUPERVISOR - 07/13/2024 9:30 AM AIRFLIGHT ATTENDANTS SUPERVISOR Surgery [facility] GI Lab [address] [place] [address] Jaya Grier MD [address] [facility] [address] [place] [address] ESOPHAGOGASTRODUODENOSCOPY Scheduled Procedures Name Priority Associated Diagnoses Date/Ti me ESOPHAGOGASTRODUODENOSCOPY Anemia, unspecified type Gastritis without bleeding, unspecified chronicity, unspecified gastritis type 07/13/2024 9:00 AM AIRFLIGHT ATTENDANTS SUPERVISOR COLONOSCOPY Iron deficiency anemia due to chronic blood loss documented as of this encounter Visit Diagnoses Not on filedocumented in this encounter
--- OUTSIDE RECORDS SUMMARY | 2024-07-04 04:27 | XMS_ITS | Encounter Summary ---
Author Organization [facility] Healthcare Address [address] [place] [address] Care Team Providers Care Veneer Stapler Name Role Phone Unavailable Primary Care Provider Unavailabl e Encounter Details Date Type Department Care Team (Late st Contact Info) Description 07/26/2007 3:21 PM STEM SETTER - 07/26/2007 11:59 PM STEM SETTER Hospital Encounter [facility] Social History Tobacco Use Types Packs/Day Years Used Date Smoking Tobacco: Never Assessed Comments Unknown Sex and Gender Information Value Date Recorded Sex Assigned at Not on file Legal Sex Female 9:03 AM STEM SETTER Gender Identity Female 02/08/2020 6:39 PM CDT Sexual Orientation Not on file documented as of this encounter Plan of Treatment Upcoming Encounters Date Type Department Care Team (Latest Contact Info) Description 07/13/2024 9:00 AM STEM SETTER Hospital Encounter [facility] GI Lab [address] [place] [address] Jaya Grier MD [address] [facility] [address] [place] [address] 07/13/2024 9:00 AM STEM SETTER - 07/13/2024 9:30 AM STEM SETTER Surgery [facility] GI Lab [address] [place] [address] Jaya Grier MD [address] [facility] [address] [place] [address] ESOPHAGOGASTRODUODENOSCOPY Scheduled Procedures Name Priority Associated Diagnoses Date/Ti me ESOPHAGOGASTRODUODENOSCOPY Anemia, unspecified type Gastritis without bleeding, unspecified chronicity, unspecified gastritis type 07/13/2024 9:00 AM STEM SETTER COLONOSCOPY Iron deficiency anemia due to chronic blood loss documented as of this encounter Visit Diagnoses Not on filedocumented in this encounter
--- OUTSIDE RECORDS SUMMARY | 2024-07-04 04:27 | XMS_ITS | Encounter Summary ---
Author Organization [facility] Healthcare Address [address] [place] [address] Care Team Providers Care Airframe Technician Name Role Phone Unavailable Primary Care Provider Unavailabl e Encounter Details Date Type Department Care Team (Late st Contact Info) Description 09/01/2007 3:42 PM CDT - 09/01/2007 11:59 PM CDT Hospital Encounter [facility] Social History Tobacco Use Types Packs/Day Years Used Date Smoking Tobacco: Never Assessed Comments Unknown Sex and Gender Information Value Date Recorded Sex Assigned at Not on file Legal Sex Female 9:03 AM PREPARING BOX TENDER Gender Identity Female 02/08/2020 6:39 PM CDT Sexual Orientation Not on file documented as of this encounter Plan of Treatment Upcoming Encounters Date Type Department Care Team (Latest Contact Info) Description 07/13/2024 9:00 AM PREPARING BOX TENDER Hospital Encounter [facility] GI Lab [address] [place] [address] Jaya Grier MD [address] [facility] [address] [place] [address] 07/13/2024 9:00 AM PREPARING BOX TENDER - 07/13/2024 9:30 AM PREPARING BOX TENDER Surgery [facility] GI Lab [address] [place] [address] Jaya Grier MD [address] [place] [address] ESOPHAGOGASTRODUODENOSCOPY Scheduled Procedures Name Priority Associated Diagnoses Date/Ti me ESOPHAGOGASTRODUODENOSCOPY Anemia, unspecified type Gastritis without bleeding, unspecified chronicity, unspecified gastritis type 07/13/2024 9:00 AM PREPARING BOX TENDER COLONOSCOPY Iron deficiency anemia due to chronic blood loss documented as of this encounter Visit Diagnoses Not on filedocumented in this encounter
--- OUTSIDE RECORDS SUMMARY | 2024-07-04 04:27 | XMS_ITS | Encounter Summary ---
Author Organization [facility] Healthcare Address [address] [place] [address] Care Team Providers Care Boat Garnisher Name Role Phone Unavailable Primary Care Provider Unavailabl e Encounter Details Date Type Department Care Team (Late st Contact Info) Description 07/22/2006 12:01 AM GYRO COMPASS TESTER - 07/22/2006 11:59 PM GYRO COMPASS TESTER Hospital Encounter [facility] Alla Varner MD [address] [place] [address] Social History Tobacco Use Types Packs/Day Years Used Date Smoking Tobacco: Never Assessed Comments Unknown Sex and Gender Information Value Date Recorded Sex Assigned at Not on file Legal Sex Female 9:03 AM GYRO COMPASS TESTER Gender Identity Female 02/08/2020 6:39 PM CDT Sexual Orientation Not on file documented as of this encounter Plan of Treatment Upcoming Encounters Date Type Department Care Team (Latest Contact Info) Description 07/13/2024 9:00 AM GYRO COMPASS TESTER Hospital Encounter [facility] GI Lab [address] [place] [address] Jaya Grier MD [address] [address] 07/13/2024 9:00 AM GYRO COMPASS TESTER - 07/13/2024 9:30 AM GYRO COMPASS TESTER Surgery [facility] GI Lab [address] [place] [address] Jaya Grier MD [facility] [address] [address] ESOPHAGOGASTRODUODENOSCOPY Scheduled Procedures Name Priority Associated Diagnoses Date/Ti me ESOPHAGOGASTRODUODENOSCOPY Anemia, unspecified type Gastritis without bleeding, unspecified chronicity, unspecified gastritis type 07/13/2024 9:00 AM GYRO COMPASS TESTER COLONOSCOPY Iron deficiency anemia due to chronic blood loss documented as of this encounter Visit Diagnoses Not on filedocumented in this encounter
--- OUTSIDE RECORDS SUMMARY | 2024-07-04 04:27 | XMS_ITS | Encounter Summary ---
Author Organization [facility] Healthcare Address [address] [place] [address] Care Team Providers Care Nuclear Fuel Processing Technician Name Role Phone Unavailable Primary Care Provider Unavailabl e Encounter Details Date Type Department Care Team (Late st Contact Info) Description 11/30/2006 8:02 AM CDT - 11/30/2006 11:59 PM CDT Hospital Encounter [facility] Social History Tobacco Use Types Packs/Day Years Used Date Smoking Tobacco: Never Assessed Comments Unknown Sex and Gender Information Value Date Recorded Sex Assigned at Not on file Legal Sex Female 9:03 AM ROVING WEIGHT GAUGER Gender Identity Female 02/08/2020 6:39 PM CDT Sexual Orientation Not on file documented as of this encounter Plan of Treatment Upcoming Encounters Date Type Department Care Team (Latest Contact Info) Description 07/13/2024 9:00 AM ROVING WEIGHT GAUGER Hospital Encounter [facility] GI Lab [address] [place] [address] Jaya Grier MD [address] [facility] [address] [place] [address] 07/13/2024 9:00 AM ROVING WEIGHT GAUGER - 07/13/2024 9:30 AM ROVING WEIGHT GAUGER Surgery [facility] GI Lab [address] [place] [address] Jaya Grier MD [address] [place] [address] ESOPHAGOGASTRODUODENOSCOPY Scheduled Procedures Name Priority Associated Diagnoses Date/Ti me ESOPHAGOGASTRODUODENOSCOPY Anemia, unspecified type Gastritis without bleeding, unspecified chronicity, unspecified gastritis type 07/13/2024 9:00 AM ROVING WEIGHT GAUGER COLONOSCOPY Iron deficiency anemia due to chronic blood loss documented as of this encounter Visit Diagnoses Not on filedocumented in this encounter
--- OUTSIDE RECORDS SUMMARY | 2024-07-04 04:27 | XMS_ITS | Encounter Summary ---
Author Organization [facility] Healthcare Address [address] [place] [address] Care Team Providers Care Fleet Manager Name Role Phone Unavailable Primary Care Provider Unavailabl e Encounter Details Date Type Department Care Team (Late st Contact Info) Description 02/01/2007 4:26 PM CDT - 02/01/2007 11:59 PM CDT Hospital Encounter [facility] Social History Tobacco Use Types Packs/Day Years Used Date Smoking Tobacco: Never Assessed Comments Unknown Sex and Gender Information Value Date Recorded Sex Assigned at Not on file Legal Sex Female 9:03 AM BATTERY TESTER Gender Identity Female 02/08/2020 6:39 PM CDT Sexual Orientation Not on file documented as of this encounter Plan of Treatment Upcoming Encounters Date Type Department Care Team (Latest Contact Info) Description 07/13/2024 9:00 AM BATTERY TESTER Hospital Encounter [facility] [address] [place] [address] Jaya Grier MD [address] [place] [address] 07/13/2024 9:00 AM BATTERY TESTER - 07/13/2024 9:30 AM BATTERY TESTER Surgery [facility] [address] [place] [address] Jaya Grier MD [address] [place] [address] ESOPHAGOGASTRODUODENOSCOPY Scheduled Procedures Name Priority Associated Diagnoses Date/Ti me ESOPHAGOGASTRODUODENOSCOPY Anemia, unspecified type Gastritis without bleeding, unspecified chronicity, unspecified gastritis type 07/13/2024 9:00 AM BATTERY TESTER COLONOSCOPY Iron deficiency anemia due to chronic blood loss documented as of this encounter Visit Diagnoses Not on filedocumented in this encounter
--- OUTSIDE RECORDS SUMMARY | 2024-07-04 04:27 | XMS_ITS | Encounter Summary ---
Author Organization [facility] Healthcare Address [address] [place] [address] Care Team Providers Care Retail Leader Name Role Phone Unavailable Primary Care Provider Unavailabl e Encounter Details Date Type Department Care Team (Late st Contact Info) Description 09/17/2006 12:01 AM CDT - 09/17/2006 11:59 PM CDT Hospital Encounter [facility] Alla Varner MD [address] [place] [address] Social History Tobacco Use Types Packs/Day Years Used Date Smoking Tobacco: Never Assessed Comments Unknown Sex and Gender Information Value Date Recorded Sex Assigned at Not on file Legal Sex Female 9:03 AM HOBBER Gender Identity Female 02/08/2020 6:39 PM CDT Sexual Orientation Not on file documented as of this encounter Plan of Treatment Upcoming Encounters Date Type Department Care Team (Latest Contact Info) Description 07/13/2024 9:00 AM HOBBER Hospital Encounter [facility] [address] [place] [address] Jaya Grier MD [address] [address] 07/13/2024 9:00 AM HOBBER - 07/13/2024 9:30 AM HOBBER Surgery [facility] [address] [place] [address] Jaya Grier MD [facility] [address] [address] ESOPHAGOGASTRODUODENOSCOPY Scheduled Procedures Name Priority Associated Diagnoses Date/Ti me ESOPHAGOGASTRODUODENOSCOPY Anemia, unspecified type Gastritis without bleeding, unspecified chronicity, unspecified gastritis type 07/13/2024 9:00 AM HOBBER COLONOSCOPY Iron deficiency anemia due to chronic blood loss documented as of this encounter Visit Diagnoses Not on filedocumented in this encounter
--- OUTSIDE RECORDS SUMMARY | 2024-07-04 04:27 | XMS_ITS | Encounter Summary ---
Author Organization [facility] Healthcare Address [address] [place] [address] Care Team Providers Care Track Superintendent Name Role Phone Unavailable Primary Care Provider Unavailabl e Encounter Details Date Type Department Care Team (Late st Contact Info) Description 05/27/2007 12:01 AM WIRELINE FIELD OPERATOR - 05/27/2007 11:59 PM WIRELINE FIELD OPERATOR Hospital Encounter [facility] Alla Varner MD [address] [place] [address] Social History Tobacco Use Types Packs/Day Years Used Date Smoking Tobacco: Never Assessed Comments Unknown Sex and Gender Information Value Date Recorded Sex Assigned at Not on file Legal Sex Female 9:03 AM WIRELINE FIELD OPERATOR Gender Identity Female 02/08/2020 6:39 PM CDT Sexual Orientation Not on file documented as of this encounter Plan of Treatment Upcoming Encounters Date Type Department Care Team (Latest Contact Info) Description 07/13/2024 9:00 AM WIRELINE FIELD OPERATOR Hospital Encounter [facility] [address] [place] [address] Jaya Grier MD [address] [address] 07/13/2024 9:00 AM WIRELINE FIELD OPERATOR - 07/13/2024 9:30 AM WIRELINE FIELD OPERATOR Surgery [facility] [address] [place] [address] Jaya Grier MD [facility] [address] [address] ESOPHAGOGASTRODUODENOSCOPY Scheduled Procedures Name Priority Associated Diagnoses Date/Ti me ESOPHAGOGASTRODUODENOSCOPY Anemia, unspecified type Gastritis without bleeding, unspecified chronicity, unspecified gastritis type 07/13/2024 9:00 AM WIRELINE FIELD OPERATOR COLONOSCOPY Iron deficiency anemia due to chronic blood loss documented as of this encounter Visit Diagnoses Not on filedocumented in this encounter
--- OUTSIDE RECORDS SUMMARY | 2024-07-04 04:27 | XMS_ITS | Encounter Summary ---
Author Organization [facility] Healthcare Address [address] [place] [address] Care Team Providers Care Ed Physicians Name Role Phone Unavailable Primary Care Provider Unavailabl e Encounter Details Date Type Department Care Team (Late st Contact Info) Description 05/24/2007 8:23 AM HEARING AID REPAIR TECHNICIAN - 05/24/2007 11:59 PM HEARING AID REPAIR TECHNICIAN Hospital Encounter [facility] Alla Varner MD [address] [place] [address] Social History Tobacco Use Types Packs/Day Years Used Date Smoking Tobacco: Never Assessed Comments Unknown Sex and Gender Information Value Date Recorded Sex Assigned at Not on file Legal Sex Female 9:03 AM HEARING AID REPAIR TECHNICIAN Gender Identity Female 02/08/2020 6:39 PM CDT Sexual Orientation Not on file documented as of this encounter Plan of Treatment Upcoming Encounters Date Type Department Care Team (Latest Contact Info) Description 07/13/2024 9:00 AM HEARING AID REPAIR TECHNICIAN Hospital Encounter [facility] [address] [place] [address] Jaya Grier MD [address] [address] 07/13/2024 9:00 AM HEARING AID REPAIR TECHNICIAN - 07/13/2024 9:30 AM HEARING AID REPAIR TECHNICIAN Surgery [facility] [address] [place] [address] Jaya Grier MD [facility] [address] [address] ESOPHAGOGASTRODUODENOSCOPY Scheduled Procedures Name Priority Associated Diagnoses Date/Ti me ESOPHAGOGASTRODUODENOSCOPY Anemia, unspecified type Gastritis without bleeding, unspecified chronicity, unspecified gastritis type 07/13/2024 9:00 AM HEARING AID REPAIR TECHNICIAN COLONOSCOPY Iron deficiency anemia due to chronic blood loss documented as of this encounter Visit Diagnoses Not on filedocumented in this encounter
--- OUTSIDE RECORDS SUMMARY | 2024-07-04 04:27 | XMS_ITS | Encounter Summary ---
Author Organization [facility] Healthcare Address [address] [place] [address] Care Team Providers Care Real Estate Economist Name Role Phone Unavailable Primary Care Provider Unavailabl e Encounter Details Date Type Department Care Team (Late st Contact Info) Description 07/01/2006 12:01 AM COIN MACHINE MECHANIC - 07/01/2006 11:59 PM COIN MACHINE MECHANIC Hospital Encounter [facility] Alla Varner MD [address] [place] [address] Social History Tobacco Use Types Packs/Day Years Used Date Smoking Tobacco: Never Assessed Comments Unknown Sex and Gender Information Value Date Recorded Sex Assigned at Not on file Legal Sex Female 9:03 AM COIN MACHINE MECHANIC Gender Identity Female 02/08/2020 6:39 PM CDT Sexual Orientation Not on file documented as of this encounter Plan of Treatment Upcoming Encounters Date Type Department Care Team (Latest Contact Info) Description 07/13/2024 9:00 AM COIN MACHINE MECHANIC Hospital Encounter [facility] [address] [place] [address] Jaya Grier MD [address] [address] 07/13/2024 9:00 AM COIN MACHINE MECHANIC - 07/13/2024 9:30 AM COIN MACHINE MECHANIC Surgery [facility] [address] [place] [address] Jaya Grier MD [facility]0 [facility] [address] [address] ESOPHAGOGASTRODUODENOSCOPY Scheduled Procedures Name Priority Associated Diagnoses Date/Ti me ESOPHAGOGASTRODUODENOSCOPY Anemia, unspecified type Gastritis without bleeding, unspecified chronicity, unspecified gastritis type 07/13/2024 9:00 AM COIN MACHINE MECHANIC COLONOSCOPY Iron deficiency anemia due to chronic blood loss documented as of this encounter Visit Diagnoses Not on filedocumented in this encounter
--- OUTSIDE RECORDS SUMMARY | 2024-07-04 04:27 | XMS_ITS | Encounter Summary ---
Author Organization [facility] Healthcare Address [address] [place] [address] Care Team Providers Care Taxicab Starter Name Role Phone Unavailable Primary Care Provider Unavailabl e Encounter Details Date Type Department Care Team (Late st Contact Info) Description 09/01/2006 12:01 AM CDT - 09/01/2006 11:59 PM CDT Hospital Encounter [facility] Alla Varner MD [address] [place] [address] Social History Tobacco Use Types Packs/Day Years Used Date Smoking Tobacco: Never Assessed Comments Unknown Sex and Gender Information Value Date Recorded Sex Assigned at Not on file Legal Sex Female 9:03 AM MACHINE PULLER AND LASTER Gender Identity Female 02/08/2020 6:39 PM CDT Sexual Orientation Not on file documented as of this encounter Plan of Treatment Upcoming Encounters Date Type Department Care Team (Latest Contact Info) Description 07/13/2024 9:00 AM MACHINE PULLER AND LASTER Hospital Encounter [facility] [address] [place] [address] Jaya Grier MD [address] [address] 07/13/2024 9:00 AM MACHINE PULLER AND LASTER - 07/13/2024 9:30 AM MACHINE PULLER AND LASTER Surgery [facility] [address] [place] [address] Jaya Grier MD [facility] [address] [address] ESOPHAGOGASTRODUODENOSCOPY Scheduled Procedures Name Priority Associated Diagnoses Date/Ti me ESOPHAGOGASTRODUODENOSCOPY Anemia, unspecified type Gastritis without bleeding, unspecified chronicity, unspecified gastritis type 07/13/2024 9:00 AM MACHINE PULLER AND LASTER COLONOSCOPY Iron deficiency anemia due to chronic blood loss documented as of this encounter Visit Diagnoses Not on filedocumented in this encounter
--- OUTSIDE RECORDS SUMMARY | 2024-07-04 04:27 | XMS_ITS | Encounter Summary ---
Author Organization [facility] Healthcare Address [address] [place] [address] Care Team Providers Care Glass Mechanic Name Role Phone Unavailable Primary Care Provider Unavailabl e Encounter Details Date Type Department Care Team (Late st Contact Info) Description 07/29/2007 4:43 PM HEDIS REGISTERED NURSE RN - 07/29/2007 11:59 PM HEDIS REGISTERED NURSE RN Hospital Encounter [facility] Social History Tobacco Use Types Packs/Day Years Used Date Smoking Tobacco: Never Assessed Comments Unknown Sex and Gender Information Value Date Recorded Sex Assigned at Not on file Legal Sex Female 9:03 AM HEDIS REGISTERED NURSE RN Gender Identity Female 02/08/2020 6:39 PM CDT Sexual Orientation Not on file documented as of this encounter Plan of Treatment Upcoming Encounters Date Type Department Care Team (Latest Contact Info) Description 07/13/2024 9:00 AM HEDIS REGISTERED NURSE RN Hospital Encounter [facility] [address] [place] [address] Jaya Grier MD [address] [facility] [address] [place] [address] 07/13/2024 9:00 AM HEDIS REGISTERED NURSE RN - 07/13/2024 9:30 AM HEDIS REGISTERED NURSE RN Surgery [facility] [address] [place] [address] Jaya Grier MD [address] [facility] [address] [place] [address] ESOPHAGOGASTRODUODENOSCOPY Scheduled Procedures Name Priority Associated Diagnoses Date/Ti me ESOPHAGOGASTRODUODENOSCOPY Anemia, unspecified type Gastritis without bleeding, unspecified chronicity, unspecified gastritis type 07/13/2024 9:00 AM HEDIS REGISTERED NURSE RN COLONOSCOPY Iron deficiency anemia due to chronic blood loss documented as of this encounter Visit Diagnoses Not on filedocumented in this encounter
--- OUTSIDE RECORDS SUMMARY | 2024-07-04 04:27 | XMS_ITS | Encounter Summary ---
Author Organization [facility] Healthcare Address [address] [place] [address] Care Team Providers Care Electronic Component Processor Name Role Phone Unavailable Primary Care Provider Unavailabl e Encounter Details Date Type Department Care Team (Late st Contact Info) Description 07/06/2006 10:37 AM AUTOMATIC TIRE TESTER - 07/06/2006 11:59 PM AUTOMATIC TIRE TESTER Hospital Encounter [facility] Alla Varner MD [address] [place] [address] Social History Tobacco Use Types Packs/Day Years Used Date Smoking Tobacco: Never Assessed Comments Unknown Sex and Gender Information Value Date Recorded Sex Assigned at Not on file Legal Sex Female 9:03 AM AUTOMATIC TIRE TESTER Gender Identity Female 02/08/2020 6:39 PM CDT Sexual Orientation Not on file documented as of this encounter Plan of Treatment Upcoming Encounters Date Type Department Care Team (Latest Contact Info) Description 07/13/2024 9:00 AM AUTOMATIC TIRE TESTER Hospital Encounter [facility] [address] [place] [address] Jaya Grier MD [address] [address] 07/13/2024 9:00 AM AUTOMATIC TIRE TESTER - 07/13/2024 9:30 AM AUTOMATIC TIRE TESTER Surgery [facility] [address] [place] [address] Jaya Grier MD [facility] [address] [address] ESOPHAGOGASTRODUODENOSCOPY Scheduled Procedures Name Priority Associated Diagnoses Date/Ti me ESOPHAGOGASTRODUODENOSCOPY Anemia, unspecified type Gastritis without bleeding, unspecified chronicity, unspecified gastritis type 07/13/2024 9:00 AM AUTOMATIC TIRE TESTER COLONOSCOPY Iron deficiency anemia due to chronic blood loss documented as of this encounter Visit Diagnoses Not on filedocumented in this encounter
--- OUTSIDE RECORDS SUMMARY | 2024-07-04 04:27 | XMS_ITS | Encounter Summary ---
Author Organization [facility] Healthcare Address [address] [place] [address] Care Team Providers Care Mortgage Loan Funder Name Role Phone Unavailable Primary Care Provider Unavailabl e Encounter Details Date Type Department Care Team (Late st Contact Info) Description 06/23/2006 12:01 AM RETAIL DEPARTMENT SUPERVISOR - 06/23/2006 11:59 PM RETAIL DEPARTMENT SUPERVISOR Hospital Encounter [facility] Alla Varner MD [address] [place] [address] Social History Tobacco Use Types Packs/Day Years Used Date Smoking Tobacco: Never Assessed Comments Unknown Sex and Gender Information Value Date Recorded Sex Assigned at Not on file Legal Sex Female 9:03 AM RETAIL DEPARTMENT SUPERVISOR Gender Identity Female 02/08/2020 6:39 PM CDT Sexual Orientation Not on file documented as of this encounter Plan of Treatment Upcoming Encounters Date Type Department Care Team (Latest Contact Info) Description 07/13/2024 9:00 AM RETAIL DEPARTMENT SUPERVISOR Hospital Encounter [facility] [address] [place] [address] Jaya Grier MD [address] [address] 07/13/2024 9:00 AM RETAIL DEPARTMENT SUPERVISOR - 07/13/2024 9:30 AM RETAIL DEPARTMENT SUPERVISOR Surgery [facility] [address] [place] [address] Jaya Grier MD [facility] [address] [address] ESOPHAGOGASTRODUODENOSCOPY Scheduled Procedures Name Priority Associated Diagnoses Date/Ti me ESOPHAGOGASTRODUODENOSCOPY Anemia, unspecified type Gastritis without bleeding, unspecified chronicity, unspecified gastritis type 07/13/2024 9:00 AM RETAIL DEPARTMENT SUPERVISOR COLONOSCOPY Iron deficiency anemia due to chronic blood loss documented as of this encounter Visit Diagnoses Not on filedocumented in this encounter
--- OUTSIDE RECORDS SUMMARY | 2024-07-04 04:27 | XMS_ITS | Encounter Summary ---
Author Organization [facility] Healthcare Address [address] [place] [address] Care Team Providers Care Classroom Aide Name Role Phone Unavailable Primary Care Provider Unavailabl e Encounter Details Date Type Department Care Team (Late st Contact Info) Description 06/05/2007 12:01 AM AGRICULTURAL RESEARCH TECHNOLOGIST - 06/05/2007 11:59 PM AGRICULTURAL RESEARCH TECHNOLOGIST Hospital Encounter [facility] Alla Varner MD [address] [place] [address] Social History Tobacco Use Types Packs/Day Years Used Date Smoking Tobacco: Never Assessed Comments Unknown Sex and Gender Information Value Date Recorded Sex Assigned at Not on file Legal Sex Female 9:03 AM AGRICULTURAL RESEARCH TECHNOLOGIST Gender Identity Female 02/08/2020 6:39 PM CDT Sexual Orientation Not on file documented as of this encounter Plan of Treatment Upcoming Encounters Date Type Department Care Team (Latest Contact Info) Description 07/13/2024 9:00 AM AGRICULTURAL RESEARCH TECHNOLOGIST Hospital Encounter [facility] [address] [place] [address] Jaya Grier MD [address] [address] 07/13/2024 9:00 AM AGRICULTURAL RESEARCH TECHNOLOGIST - 07/13/2024 9:30 AM AGRICULTURAL RESEARCH TECHNOLOGIST Surgery [facility] [address] [place] [address] Jaya Grier MD [facility] [address] [address] ESOPHAGOGASTRODUODENOSCOPY Scheduled Procedures Name Priority Associated Diagnoses Date/Ti me ESOPHAGOGASTRODUODENOSCOPY Anemia, unspecified type Gastritis without bleeding, unspecified chronicity, unspecified gastritis type 07/13/2024 9:00 AM AGRICULTURAL RESEARCH TECHNOLOGIST COLONOSCOPY Iron deficiency anemia due to chronic blood loss documented as of this encounter Visit Diagnoses Not on filedocumented in this encounter
--- OUTSIDE RECORDS SUMMARY | 2024-07-04 04:27 | XMS_ITS | Encounter Summary ---
Author Organization [facility] Healthcare Address [address] [place] [address] Care Team Providers Care Vault Worker Name Role Phone Unavailable Primary Care Provider Unavailabl e Encounter Details Date Type Department Care Team (Late st Contact Info) Description 12/20/2006 9:35 AM CDT - 12/20/2006 12:05 PM CDT Hospital Encounter [facility] Phil Garland, Alla Burdick MD [address] [place] [address] Social History Tobacco Use Types Packs/Day Years Used Date Smoking Tobacco: Never Assessed Comments Unknown Sex and Gender Information Value Date Recorded Sex Assigned at Not on file Legal Sex Female 9:03 AM SHOE REPAIR SUPERVISOR Gender Identity Female 02/08/2020 6:39 PM CDT Sexual Orientation Not on file documented as of this encounter Plan of Treatment Upcoming Encounters Date Type Department Care Team (Latest Contact Info) Description 07/13/2024 9:00 AM SHOE REPAIR SUPERVISOR Hospital Encounter [facility] [address] [place] [address] Jaya Grier MD [address] [address] 07/13/2024 9:00 AM SHOE REPAIR SUPERVISOR - 07/13/2024 9:30 AM SHOE REPAIR SUPERVISOR Surgery [facility] [place] [facility] [address] [place] [address] Jaya Grier MD [address] [facility] [address] [place] [address] ESOPHAGOGASTRODUODENOSCOPY Scheduled Procedures Name Priority Associated Diagnoses Date/Ti me ESOPHAGOGASTRODUODENOSCOPY Anemia, unspecified type Gastritis without bleeding, unspecified chronicity, unspecified gastritis type 07/13/2024 9:00 AM SHOE REPAIR SUPERVISOR COLONOSCOPY Iron deficiency anemia due to chronic blood loss documented as of this encounter Visit Diagnoses Not on filedocumented in this encounter
--- OUTSIDE RECORDS SUMMARY | 2024-07-04 04:27 | XMS_ITS | Encounter Summary ---
Author Organization [facility] Healthcare Address [address] [place] [address] Care Team Providers Care Cardiac Rehabilitation Specialist Name Role Phone Unavailable Primary Care Provider Unavailabl e Encounter Details Date Type Department Care Team (Late st Contact Info) Description 07/20/2006 12:01 AM PACKAGE DELIVERY ROOM SERVICE RUNNER - 07/20/2006 11:59 PM PACKAGE DELIVERY ROOM SERVICE RUNNER Hospital Encounter [facility] Alla Varner MD [address] [place] [address] Social History Tobacco Use Types Packs/Day Years Used Date Smoking Tobacco: Never Assessed Comments Unknown Sex and Gender Information Value Date Recorded Sex Assigned at Not on file Legal Sex Female 9:03 AM PACKAGE DELIVERY ROOM SERVICE RUNNER Gender Identity Female 02/08/2020 6:39 PM CDT Sexual Orientation Not on file documented as of this encounter Plan of Treatment Upcoming Encounters Date Type Department Care Team (Latest Contact Info) Description 07/13/2024 9:00 AM PACKAGE DELIVERY ROOM SERVICE RUNNER Hospital Encounter [facility] [address] [place] [address] Jaya Grier MD [address] [address] 07/13/2024 9:00 AM PACKAGE DELIVERY ROOM SERVICE RUNNER - 07/13/2024 9:30 AM PACKAGE DELIVERY ROOM SERVICE RUNNER Surgery [facility] [address] [place] [address] Jaya Grier MD [facility] [address] [address] ESOPHAGOGASTRODUODENOSCOPY Scheduled Procedures Name Priority Associated Diagnoses Date/Ti me ESOPHAGOGASTRODUODENOSCOPY Anemia, unspecified type Gastritis without bleeding, unspecified chronicity, unspecified gastritis type 07/13/2024 9:00 AM PACKAGE DELIVERY ROOM SERVICE RUNNER COLONOSCOPY Iron deficiency anemia due to chronic blood loss documented as of this encounter Visit Diagnoses Not on filedocumented in this encounter
--- OUTSIDE RECORDS SUMMARY | 2024-07-04 05:09 | XMS_ITS | Continuity of Care Document ---
Author Organization [facility] Address [address] [facility] [address] [place] [address] Phone Care Team Providers Care Orchid Worker Name Role Phone Luis OD, Alvarado Unavailable Unavailable Advance Directives Directive Yes / No Effective Date File Name No Information Encounters Encounter Description Practice Location Reason(s) For Visit Diagnoses Date Provider Providers Copied on Encounter [facility], [address], [place], [place], [id number], [place] tel:[phone] [facility] No Information May-2 0-200 5 Luis OD Alvarado. [address] [facility] , [address], [place], [address], [place]. tel:[phone] Family History Family Member Type Diagnosis Age At Onset No Information Payers Payer name Insurance type Covered republican ID Authoriza tion(s) Medicaid [facility] [id number] Social History Type Description Quantity Date Captured [...]
== END 2024-07-02 20:54 | disposition home health service (06) | DRG 91 ==
LOC: ANHED 17:34 → ANH3MEDSUR 06-28 02:39
PROVIDERS: Internal Medicine Nephrology; Admitting Provider Internal Medicine; Emergency Provider Physician Assistant; PCP Hospitalist; Visit Provider Internal Medicine
DX: G92.8 Other toxic encephalopathy (principal); N18.6 End stage renal disease; I50.32 Chronic diastolic (congestive) heart failure; T43.595A Adverse effect of other antipsychotics and neuroleptics, initial encounter; E11.22 Type 2 diabetes mellitus with diabetic chronic kidney disease; E11.40 Type 2 diabetes mellitus with diabetic neuropathy, unspecified; D63.1 Anemia in chronic kidney disease; F20.9 Schizophrenia, unspecified; F03.90 Unspecified dementia, unspecified severity, without behavioral disturbance, psychotic disturbance, mood disturbance, and anxiety; Z20.822 Contact with and (suspected) exposure to COVID-19; Z79.4 Long term (current) use of insulin; Z79.82 Long term (current) use of aspirin
CPT/HCPCS: 36415; 70450; 70496; 70498; 70551; 71045; 71250; 74150; 74176; 80053; 80143; 80179; 80307; 81001; 82077; 82140; 82550; 82607; 82746; 82948; 83605; 83735; 84100; 84443; 84484; 85025; 85610; 85730; 86706; 87040; 87045; 87340; 87427; 87449; 87493; 87637; 87641; 92507; 92523; 92610; 93005; 95816; 96361; 96374; 97116; 97161; 97165; 97530; 97535; 99285; A9270; C8929; G0257; G0378; J1644; J1953; J7030; P9047; Q9957; Q9967

== ENCOUNTER 2024-09-07 09:13 | Emergency (ER) | payer MEDICARE, MEDICAID, SELFPAY ==
[2024-09-07] VITALS (10 sets, daily range): BP systolic 107–145; BP diastolic 57–86; PULSE 63–73; RESP 14–18; TEMP 37.1; O2SAT 96–100
--- NOTE | ~2024-09-07 | XR_ITS ---
HISTORY: shoulder pain; no injury COMPARISON: None TECHNIQUE: 3 views of the right shoulder were performed FINDINGS: No acute fracture. The glenohumeral and acromioclavicular joint space is maintained The visualized portion of the adjacent right lung is clear. The humeral head is well seated within the glenoid fossa. Right internal jugular tunneled central venous hemodialysis catheter identified. Findings within the right humeral head suggestive of a bone infarct. IMPRESSION: No acute fracture or anterior dislocation. Reviewed, dictated and finalized at location A.
--- NOTE | ~2024-09-07 | CT_ITS ---
EXAMINATION: CT brain wo con DATE: 09/07/2024 13:56 INDICATION: Weakness TECHNIQUE: Computed tomography (CT) of the head was performed without intravenous contrast. Sagittal and coronal reconstructions were performed. The mA was adjusted according to patient size. Iterative reconstruction technique was employed. The dose-length product was 681.00 mGy-cm. COMPARISON: head CT dated 06/27/24 FINDINGS: Again seen is a small old lacunar infarct at the right thalamus. Moderate scattered white matter hypo attenuation consistent with chronic small vessel ischemic disease. No acute intracranial hemorrhage, acute infarction or abnormal extra axial fluid collection. Ventricles are normal and symmetric. No ma ss/mass effect. Unchanged small right mastoid effusion. The orbits and paranasal sinuses are normal. Hyperostosis frontalis. IMPRESSION: 1. Unchanged old lacunar infarct at the right thalamus. No acute intracranial process. 2. Moderate scattered nonspecific white matter hypoattenuation consistent with chronic small vessel i schemic disease. Reviewed, dictated and finalized at location A. IMPRESSION: 1. Unchanged old lacunar infarct at the right thalamus. No acute intracranial p rocess. 2. Moderate scattered nonspecific white matter hypoattenuation consistent with chronic small vessel ischemic disease.
--- OUTSIDE RECORDS SUMMARY | 2024-09-07 10:06 | XMS_ITS | Clinical Summary ---
Author Organization [facility] Address [address] [place] [address] Care Team Providers Care Road Roller Operator Name Role Phone Cherelle Corcoran MD Primary Care Provider [phone] Social History Tobacco Use Types Packs/Day Years [...] 04/08/2024 10/08/2023, 11/20, 08/02/2022, Additional history exists PHQ-2 (Physician Olds) 06/22/2024 Mammogram Screening 01/21/2026 01/22/2024, 09/25/2022, 01/08/2021, Additional history exists Pneumococcal Vaccine: 65+ Years Completed 01/20/2019, 03/31/2017 Dexa Scan (General) Completed 01/22/2024, 01/22/2024, 01/08/2021 Hepatitis C Completed 01/30/2024, 0706/2023, 12/21/2023 Meningococcal B Vaccine Aged Out No l onger eligible based on patient's age to complete this topic Meningococcal Vaccine Aged Out No khang frances eligible based on patient's age to complete this topic RSV Immunizations Under 20 Months Aged Out No longer eligible based on patient's age to complete this topic Insurance MEDICARE MEDICAID Care Teams Road Roller Operator Relationship Specialty Start Date End Date Cherelle Corcoran MD [address] [place] [id number] PCP - General FAMILY PRACTICE 09/27/19
--- OUTSIDE RECORDS SUMMARY | 2024-09-07 10:07 | XMS_ITS | Encounter Summary ---
Author Organization [facility] Address [address] [place] [address] Phone Care Team Providers Care Drivers License Examiner Name Role Phone Cherelle Corcoran MD Primary Care Pro vider QueenMark Perez MD Unavailable [phone] Brandie Callejas MA Unavailable Unav ailable Xenia Padilla LPN Unavailable [phone] Samples, Melania Joel RN Unavailable [phone] Anam Costa LCSW Unavailable Unavailabl e Samples, Melania Joel RN Unavailable Rudolph Welch MD Unavailable Markie Ryan MD Unavailable Nadege Ramírez RN Unavailable [phone] Dulce Vega RN Unavailable [phone] Jimbo Strauss MD Unavailable [phone] Jaya Grier MD Unavailable Edgardo Kauffman MD Unavailable [phone] Encounter Details Date Type Department Care Team (Late st Contact Info) Description 12/30/2021 Telephone [facility] Endocrinology Metabolism and Lipid [address] [facility] 5[address] [place] [address] [place] [address] Rachael Smith CMA Social History Tobacco Use [...] on file Legal Sex Female 9:03 AM PRACTICE SPECIALIST Gender Identity Female 02/08/2020 6:39 PM CDT Sexual Orientation Not on file documented as of this encounter Plan of Treatment Upcoming Encounters Date Type Department Care Team (Latest Contact Info) Description 09/13/2024 8:00 AM CDT Hospital Encounter [facility] [address] [place] [address] Jaya Grier MD [facility] [address] [place] [address] 09/13/2024 8:00 AM CDT - 09/13/2024 8:30 AM CDT Surgery [facility] [address] [place] [address] Jaya Grier MD [address] [facility] [address] [place] [address] ESOPHAGOGASTRODUODENOSCOPY Scheduled Procedures Name Priority Associated Diagnoses Date/Ti il ESOPHAGOGASTRODUODENOSCOPY Ulcer of esophagus without bleeding 09/13/2024 8:00 AM CDT COLONOSCOPY Iron deficiency anemia due to chronic blood loss documented as of this encounter Visit Diagnoses Not on filedocumented in this encounter Additional Health Concerns Infection Onset Date Last Indicated Resolved Time COVID: Suspected 05/08/2022 05/08/2022 05/08/2022 4:26 PM PRACTICE SPECIALIST COVID: Suspected 06/19/2022 06/19/2022 06/19/2022 12:37 PM PRACTICE SPECIALIST COVID: Suspected 08/01/2022 08/01/2022 08/01/2022 2:28 PM PRACTICE SPECIALIST COVID: Suspected 10/02/2022 10/02/2022 10/02/2022 8:14 PM CDT MRSA Comment:Toe 11/08/22, 12/12/22 11/08/2022 12/12/2022 06/10/2023 3:05 AM PRACTICE SPECIALIST COVID: Suspected 12/08/2022 12/08/2022 12/08/2022 8:17 PM CDT COVID: Suspected 07/27/2023 07/27/2023 07/28/2023 12:57 AM PRACTICE SPECIALIST COVID: Suspected 10/29/2023 10/30/2023 10/30/2023 10:59 AM CDT 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 12/19/2023 12/19/2023 3:58 PM CDT 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 12/29/2023 06/26/2024 3:05 AM PRACTICE SPECIALIST COVID: Suspected 04/19/2024 04/19/2024 04/20/2024 12:44 AM CDT COVID: Suspected 07/12/2024 07/12/2024 07/12/2024 12:39 PM PRACTICE SPECIALIST COVID: Suspected 07/31/2024 07/31/2024 07/31/2024 2:06 PM PRACTICE SPECIALIST documented as of this encounter Care Teams Drivers License Examiner Relationship Specialty Start Date End Date Cherelle Corcoran MD PCP - General Family Medicine 08/30/19 Mark Queen MD Consulting Physician Infectious Diseases 01/10/20 Brandie Callejas MA Patient Dental Technician 06/20/22 06/22/22 Xenia Padilla LPN [address] [place] [address] [address] [place] [address] Grain Thresher 06/24/22 06/24/22 Samples, Melania Joel RN [address] [place] [address] [address] [place] [address] Grain Thresher 07/22/22 08/21/22 Anam Costa LCSW [address] [place] [address] [address] [place] [address] Stone Cleaner 08/08/22 02/18/23 Samples, Melania Joel RN [address] [place] [address] [address] [place] [address] Grain Thresher 08/22/22 12/07/22 Rudolph Welch MD [address] [facility] [address] [place] [address] Consulting Physician Infectious Diseases 12/05/22 Markie Ryan MD [address] [facility] [address] [place] [address] Consulting Physician Nephrology 12/05/22 Nadege Ramírez RN [address] [place] [address] [address] [place] [address] Grain Thresher 01/20/23 02/23/23 Dulce Vega, ALIREZA [address] [place] [address] [address] [place] [address] Grain Thresher 10/07/23 05/03/24 [place] [address] [facility] [address] [place] [address] Consulting Physician Nephrology 10/22/23 Jaya Grier MD [address] [facility] [address] [place] [address] Consulting Physician Gastroenterology 02/01/24 Edgardo Kauffman MD [address] [facility] [address] [place] [address] Surgeon Vascular Surgery 07/15/24 documented as of this encounter
--- OUTSIDE RECORDS SUMMARY | 2024-09-07 10:07 | XMS_ITS ---
Author Organization [facility] Care Team Providers Care Web Content Manager Name Role Phone Josefa Anna Unavailable Unavaila lore Roy, Demetri Mir Unavailable Unavailable Fahijose, Sarahi Unavailable Unavailable Allergies and adverse reactions No Known Allergies Care Team Name Role Address Phone Organization Dates Demetri Roy PCP [address] [place], [place], [facility], [facility] (Office): [facility] 11/14/2022 - 11/30/2022 Josefa Anna Attending Physician [address] [place], [place], [facility], [facility] (Office): : [facility] 11/14/2022 - 11/30/2022 Sarahi Urbano Attending Physician [address] [place] [address], [facility] [place] (Office): [facility] 11/14/2022 - 11/30/2022 Goals Section Description Status Target Date Current level of care is rob ropriate considering current physical/ social/ emotional status. Active 03/05/2023 If the resident's heart stop s, or if they stop breathing, CPR WILL be initiated in honor with their FULL code wishes. Active Minimize the risk of residen t exposure to the novel Coronavirus (COVID-19). Active 03/05/2023 Prevent a serious fall related injury Active 03/05/2023 Resident dietary PREFERENCES will be honored thr ough next review. Active 03/05/2023 Resident will be able to par ticipate in enjoyable activities during their stay Active 03/05/2023 Resident will be free from c omplications related to skin impairment. Active 03/05/2023 Resident will be free from s igns and symptoms of abnormal bleeding through the next review date. Active 03/05/2023 Resident will be free of com plications related to ADL deficit through next review date: Active 03/05/2023 Resident will be kept clean and comfortable through next review date. Active 03/05/2023 Resident will be kept clean, dry and comfortable daily through next review Active 03/05/2023 Resident will have a regular bowel elimination pattern AEB soft/formed bowel movements at least once every three days through the next review: Active 03/05/2023 Resident will have adequate fluid volume balance AEB good skin turgor, pink & moist mucous membranes, and sufficient fluid intake through next review. Active 03/05/2023 Resident will maintain ADEQUATE NUTRITION levels . Active 03/05/2023 Resident will maintain a STA BLE WEIGHT + or - 5lbs from baseline weight. Active 03/05/2023 Resident will maintain intac t skin or current condition of skin integrity through next review date. Active 03/05/2023 Resident will not develop an y complications associated with incontinence through next review. Active 03/05/2023 Resident will not develop any new areas of skin breakdown. Active 03/05/2023 Resident will not experience a decline in overall function related to pain through next review date. Active 03/05/2023 Resident will not experience serious side effects due to medication use. Active 03/05/2023 Resident will not have any s erious side effects related to cardiovascular medications and will not have any unrecognized signs of a worsening cardiovascular condition Active 03/05/20 Resident will not report sym ptoms of HUNGER OR THIRST through next review. Active 03/05/2023 Resident will participate in ordered therapy ser vices Active 03/05/2023 Resident will receive the le ast dosage of the prescribed psychotropic drug(s) to ensure maximum functional ability both mentally and physically through next review date. Active 02/20 Resident will remain free fr om discomfort or further complications related to renal disease. Active 03/05/2023 Resident will state/demonstr ate relief or reduction in pain intensity within one hour after receiving interventions through next review date. Active 03/05/2023 Resident's area of skin impa irment will remain free from infection. Active 03/05/2023 Residents preferences will be honored as able Ac tive 03/05/2023 Resolve the resident's infection Active 03/05/2023 The resident will be free fr om complications of cardiac problems through the review date. Active 03/05/2023 The resident will be/remain free of psychotropic drug related complications, including abnormal movement disorder, discomfort, hypotension, gait disturbance, ADL decline or cognitive/behavioral impairment through review date. Active 03/05/2023 The resident will have impro lino mood state (SPECIFY: happier, calmer appearance, no s/sx of depression, anxiety or sadness) through the review date. Active 03/05/2023 The resident will have no co mplications from hyper or hypoglycemia through the review date. Active 03/05/2023 The resident will have no in dications of psychosocial well-being problem by/through review date. Active 03/05/2023 The resident will have not h ave any complications related to IV Therapy through the review date. Active 03/05/2023 The resident will maintain c urrent level of ADL function through the review date. Active 03/05/2023 The resident will maintain c urrent level of cognitive function through the review date. Active 03/05/2023 The resident will not have a n interruption in normal activities due to pain through the review date. Active 03/05/2023 The resident will remain luis armando e of complications related to altered hematological status through the review date. Active 03/05/20 The resident will report sat isfaction with rest and sleep patterns or have fewer documented episodes of insomnia through the review date Active 03/05/2023 Mental Status Section Date Assessment Total Score Description 11/30/2022 CAM 0 No delirium ind icated 11/19/2022 BIMS 12 moderate cognit amanda impairment CAM 0 No delirium ind icated PHQ-9 06 mild depression Problems Problem # Description Date of onset Resolved Date Code CodeSystem Concern Status 1 ACUTE HEMATOGENOUS OSTEOMYELITIS, OTHER SITES [address] active 2 ALZHEIMER'S DISEASE WITH LATE ONSET [address] active 3 ANEMIA IN CHRONIC KIDNEY DISEASE [address] active 4 CELLULITIS OF RIGHT TOE [address] active 5 COGNITIVE COMMUNICATION DEFICIT [address] active 6 DEMENTIA IN OTHER DISEASES CLASSIFIED ELSEWHERE, UNSPECIFIED SEVERITY, WITHOUT BEHAVIORAL DISTURBANCE, PSYCHOTIC DISTURBANCE, MOOD DISTURBANCE, AND ANXIETY [address] active 7 GASTRO-ESOPHAGEAL REFLUX DISEASE WITHOUT ESOPHAGITIS [address] active 8 HYPERLIPIDEMIA, UNSPECIFIED [address] active 9 HYPERTENSION SECONDARY TO ENDOCRINE DISORDERS [address] active 10 LOCAL INFECTION OF THE SKIN AND SUBCUTANEOUS TISSUE, UNSPECIFIED [address] active 11 ASSISTED (CURRENT) USE OF INSULIN [address] active 12 MUSCLE WEAKNESS (GENERALIZED) [address] active 13 OTHER ABNORMALITIES OF GAIT AND MOBILITY [address] active 14 OTHER ACUTE OSTEOMYELITIS, RIGHT ANKLE AND FOOT [address] active 15 SCHIZOAFFECTIVE DISORDER, BIPOLAR TYPE 3 11/13/[address] completed 16 TYPE 2 DIABETES MELLITUS WITH DIABETIC CHRONIC KIDNEY DISEASE [address] active 17 TYPE 2 DIABETES MELLITUS WITH DIABETIC NEUROPATHY, UNSPECIFIED [address] active 18 TYPE 2 DIABETES MELLITUS WITH OTHER CIRCULATORY COMPLICATIONS [address] active 19 UNSPECIFIED ABNORMAL FINDINGS IN URINE [address] active 20 UNSPECIFIED PROTEIN-CALORIE MALNUTRITION [address] active 21 UNSTEADINESS ON FEET [address] active 22 OSTEOMYELITIS, UNSPECIFIED 3 11/13/[address] completed Reason for Referral No Reasons for Referral Entered Social History Social History Observation Description Start Date End Date Code Code System Current Smoking Status Tobacco smoking consumption unknown 868386904 SNOMED CT Sex Assigned At Female 1950 44017-8 [facility] Vital Signs Code Code System Vitals Name Values and Units Timing Information 49769-8 [facility] Weight Swopu=225.2 Units=Lbs 04/2023 8310-5 [facility] Body Temperature Value=97.5 Units= F 11/30/2022 2339-0 [facility] Blood Sugar Twvsh=241.0 Units=mg/dL 11/30/2022 37728-1 [facility] Pain Level Value=0.0 11/30/2022 9279-1 [facility] Respiratory Rate Value=18.0 Units=/m in 11/23/2022 8462-4 [facility] Blood Pressure-Diastolic Value=74 Un its=mmHg 11/23/2022 8480-6 [facility] Blood Pressure-Systolic Bwkwk=091 Un its=mmHg 11/23/2022 8867-4 [facility] Heart rate Value=70.0 Units=/min 09/2022 8302-2 [facility] Height Value=65.0 Units=Inches 11/20/2022 12029-6 [facility] O2 % BldC Oximetry Value=97.0 Units= % 11/16/2022
--- OUTSIDE RECORDS SUMMARY | 2024-09-07 10:07 | XMS_ITS ---
Author Organization [facility] Care Team Providers Care Lost Charge Card Clerk Name Role Phone Demetri Roy Unavailable Unavailable Allergies and adverse reactions No Known Allergies Care Team Name Role Address Phone Organization Dates Demetri Roy PCP [address] [place], [place], [facility], [place] (Office): : : [facility] 08/15/2021 - 08/22/2021 Mental Status Section Date Assessment Total Score Description 08/22/2021 BIMS 13 cognitively int act CAM 0 No delirium ind icated PHQ-9 12 moderate depres jannette 08/21/2021 BIMS 13 cognitively int act CAM 0 No delirium ind icated PHQ-9 12 moderate depres jannette Problems Problem # Description Date of onset Resolved Date Code CodeSystem Concern Status 1 ALZHEIMER'S DISEASE 2 08/15/[address] completed 2 GASTRO-ESOPHAGEAL REFLUX DISEASE WITHOUT ESOPHAGITIS 2 08/15/[address] completed 3 IRON DEFICIENCY ANEMIA 2 08/15/[address] completed 4 OTHER HYPERLIPIDEMIA 2 08/15/[address] completed 5 SCHIZOAFFECTIVE DISORDER, BIPOLAR TYPE [address] active 6 SCHIZOAFFECTIVE DISORDER, BIPOLAR TYPE 2 08/15/[address] completed 7 ALZHEIMER'S DISEASE [address] active 8 ALZHEIMER'S DISEASE, UNSPECIFIED [address] active 9 ANEMIA, UNSPECIFIED [address] active 10 COVID-[address] active 11 ESSENTIAL (PRIMARY) HYPERTENSION [address] active 12 GASTRO-ESOPHAGEAL REFLUX DISEASE WITHOUT ESOPHAGITIS [address] active 13 IRON DEFICIENCY ANEMIA [address] active 14 OTHER HYPERLIPIDEMIA [address] active [address]ENIA [address] active 16 TYPE 2 DIABETES MELLITUS WITH DIABETIC NEUROPATHY, UNSPECIFIED [address] active Reason for Referral No Reasons for Referral Entered Social History Social History Observation Description Start Date End Date Code Code System Current Smoking Status Tobacco smoking consumption unknown 406539622 SNOMED CT Sex Assigned At Female 1950 51544-4 [facility] Vital Signs Code Code System Vitals Name Values and Units Timing Information 8462-4 [facility] Blood Pressure-Diastolic Value=68 Un its=mmHg 08/22/2021 8480-6 [facility] Blood Pressure-Systolic Ossgx=153 Un its=mmHg 08/22/2021 9279-1 [facility] Respiratory Rate Value=20.0 Units=/m in 08/22/2021 8310-5 [facility] Body Temperature Value=97.8 Units= F 08/22/2021 8867-4 [facility] Heart rate Value=86.0 Units=/min 08/2021 2339-0 [facility] Blood Sugar Hdflw=388.0 Units=mg/dL 08/22/2021 75941-9 [facility] Pain Level Value=0.0 08/22/2021 49442-0 [facility] O2 % BldC Oximetry Value=96.0 Units= % 08/21/2021 60437-9 [facility] Weight Keikl=780.1 Units=Lbs
--- OUTSIDE RECORDS SUMMARY | 2024-09-07 10:07 | XMS_ITS | Clinical Summary ---
Author Organization [facility] Address [address] [place] [address] Care Team Providers Care Distance Education Teacher Name Role Phone Cherelle Corcoran MD Primary Care Pro vider QueenMark Perez MD Unavailable [phone] Rudolph Welch MD Unavailable Markie Ryan MD Unavailable [phone] Jimbo Strauss MD Unavailable [phone] Jaya Grier MD Unavailable Edgardo Kauffman MD Unavailable Allergies No known active allergies Medications lidocaine (ASPERCREME) 4 % adhesive patch,medicated Place 1 patch on the skin daily as needed to lower back Active polyethylene glycol (MIRALAX) 17 gram/dose bulk powder Take 17 g by mouth daily as needed (Constipation) 595 g 024 Active FreeStyle Madhav 3 [facility] Use Madhav 3 reader to scan Madhav 3 sensor 024 Active pen needle, diabetic (Easy Touch) 32 gauge x 5/32 needleIndications :Type 2 diabetes mellitus with diabetic neuropathy, with long-term current use of insulin (HCC) USE DIRECTED FOUR TIMES DAILY 100 each 3 Active fluticasone propionate (FLONASE) 50 mcg/actuation nasal spray Administer 2 sprays into each nostril daily as needed for rhinitis Active docusate sodium (COLACE) 100 mg capsule Take 1 capsule (100 mg total) by mouth every 12 (twelve) hours 60 capsule Active Additional Information Patient taking differently:100 mg oral2 times daily PRN, Reported on 08/31/2024 hydrALAZINE (APRESOLINE) 25 mg tabletIndications :hypertension Take 1 tablet (25 mg total) by mouth 2 (two) times a day 60 tablet 1 Active sucroferric oxyhydroxide 500 mg tablet,chewable Take 0.5 tablets (250 mg total) by mouth 3 (three) times a day Active FeroSuL 325 mg (65 mg iron) tabletIndications :Iron deficiency anemia, unspecified iron deficiency anemia type Take 1 tablet (325 mg total) by mouth daily with breakfast 90 tablet 1 Active Additional Information Patient not taking.Reported on 08/31/2024 aspirin 81 mg chewable tablet Take 1 tablet (81 mg total) by mouth daily 90 tablet 1 Active methoxy peg-epoetin beta (MIRCERA INJ) 75 mcg once every 2 weeks 2024 Active carvediloL (COREG) 3.125 mg tablet Take 1 tablet (3.125 mg total) by mouth 2 (two) times a day Active gabapentin (NEURONTIN) 100 mg capsuleIndication s:Diabetic polyneuropathy associated with type 2 diabetes mellitus (HCC) TAKE 1 CAPSULE BY MOUTH 3 TIMES PER WEEK AFTER HEMODIALYSIS 40 capsule 1 Active NIFEdipine CC 60 mg 24 hr tablet Take 1 tablet (60 mg total) by mouth nightly Active atorvastatin (LIPITOR) 20 mg tablet Take 1 tablet (20 mg total) by mouth nightly Active calcitRIOL (ROCALTROL) 0.25 mcg capsule Take 1 capsule (0.25 mcg total) by mouth Active blood glucose diagnostic (Easy Touch Test Strip) stripIndications: Type 2 diabetes mellitus with diabetic neuropathy, with long-term current use of insulin (HCC) 1 each by other route daily 100 strip [address] (PROTONIX) 40 mg EC tabletIndications :Gastroesophageal reflux disease without esophagitis TAKE 1 TABLET(40 MG) BY MOUTH TWICE DAILY 180 tablet 025 Active blood-glucose sensor (FreeStyle Madhav 3 Plus Sensor) deviceIndications :Type 2 diabetes mellitus with diabetic nephropathy, with long-term current use of insulin ([facility]) Use to continually monitor glucose, change sensor every 15 days 6 each 3 025 Active risperiDONE (RisperDAL) 2 mg tablet Take 1 tablet (2 mg total) by mouth daily 025 Active omeprazole (PriLOSEC) 20 mg capsuleIndication s:Gastroesophagea l reflux disease, unspecified whether esophagitis present Take 1 capsule (20 mg total) by mouth daily 90 capsule 021 2021 Discontinued flash glucose scanning reader miscIndications:T ype 2 diabetes mellitus with diabetic neuropathy, with long-term current use of insulin ([facility]) Use Madhav 3 reader to scan Madhav 3 sensor 1 each 024 2024 Discontinued(D uplicate order) collagenase (SANTYL) ointmentIndicatio ns:Pressure injury of buttock, stage 1, unspecified laterality Apply topically daily 90 g 025 2024 Active Problems Problem Noted Date Diagnosed Date 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 mellitus 07/22/2024 Ulcer of esophagus without bleeding 07/18/2024 ESRD (end stage renal disease) on dialysis 07/14 Type 2 diabetes mellitus wit h diabetic nephropathy, without long-term current use of insulin 07/07/2024 Hyperlipidemia associated with type 2 diabetes m ellitus 07/07/2024 Assessment & Plan (07/14/2024 2:30 PM WALL MAN): Continue Lipitor Assessment & Plan (07/14/2024 8:56 AM WALL MAN): Ok to restart atorvastatin, but also given overall health status reasonable to continue holding, especially if had side effects with restarting Anemia 06/17/2024 Gastritis without bleeding 06/17/2024 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 We attempted also placed today that was instilled for at least an hour. The blue lumen continues to be difficult to aspirate. Current potassium is 4.1 catheter sites clean dry and intact. Discussed procedure with the patient and daughter answered all questions to their satisfaction. They are agreeable wished to proceed. Assessment & Plan (07/14/2024 8:51 AM WALL MAN): Following with nephrology Assessment & Plan (01/06/2024 12:53 PM CDT): [...] 10/30/2023 Assessment & Plan (05/06/2024 7:49 AM WALL MAN): Reviewed hospital discharge summary Now resolved Upcoming appointment with neurology Leg swelling 10/07/2023 Bandemia 12/20/2022 Shortness of breath 12/13/2022 Chronic diastolic congestive heart failure 12/06 Assessment & Plan (01/05/2024 10:46 PM CDT): Patient euvolemic at this time. -continue coreg, nifedipine, hydralazine for BP control -nephrology c/s for HD Bibasilar consolidations 12/06/2022 Movement disorder 12/06/2022 Abnormal urinalysis 11/07/2022 Anemia in chronic kidney disease, on chronic sara lysis 10/10/2022 Assessment & Plan (11/12/2023 1:01 PM CDT): Last h/h stable Assessment & Plan (07/24/2023 1:51 PM WALL MAN): Chronic/stable Parkinsonism 08/14/2022 Assessment & Plan (07/14/2024 8:54 AM WALL MAN): Following with neurology, recommend reaching out to them in regards to restarting benztropine. Consider waiting until after restarts other medications given daughter reports tremors controlled off benztropine currently Assessment & Plan (11/10/2023 4:43 PM CDT): Following with neurology On cogentin Assessment & Plan (07/24/2023 1:50 PM WALL MAN): Following with neurology On cogentin twice a day Assessment & Plan (01/23/2023 9:20 AM CDT): Following with neurology On cogentin twice a day Assessment & Plan (10/10/2022 10:41 AM CDT): Following with neurology On cogentin Assessment & Plan (08/14/2022 10:46 AM WALL MAN): Following with neurology, reviewed note On cogentin [...] walker. - PT/OT recommends SNF. -Plan [facility], SNF on 11/26 ? Assessment & Plan (11/24/2021 2:07 PM CDT): Deconditioning 2/2 prolonged hospitalization. Daughter reports that prior to her illness, she was independent with a walker. - PT/OT recommends SNF. -Plan [facility], SNF on 11/25. Assessment & Plan (11/23/2021 12:24 PM CDT): Deconditioning 2/2 prolonged hospitalization. Daughter reports that prior to her illness, she was independent with a walker. - PT/OT recommends SNF. -Plan [facility], SNF on 11/25. Assessment & Plan (11/22/2021 1:34 PM CDT): Deconditioning 2/2 prolonged hospitalization. Daughter reports that prior to her illness, she was independent with a walker. - PT/OT recommends SNF. -Plan [facility], [facility] on 11/25. Assessment & Plan (11/21/2021 12:13 [...] and needed 2 person assist. Toe necrosis 10/07/2021 Assessment & Plan (10/10/2022 10:36 AM CDT): Following with podiatry & wound care Assessment & Plan (08/14/2022 10:47 AM WALL MAN): Following with podiatry Assessment & Plan (04/02/2022 [...] - renal consulted regarding volume management, possible predatory animal exterminator dialysis planning, expedite OP f/u. Serologies and urine studies ordered. ED neg, compliments neg, cryoglobulin pending, ANCA pending, HIV neg. Continued -Added metolazone 2.5mg/daily per renal 09/13- with improving swelling, Cr bump to 2.33 so held further -Transitioned to PO agents prior to DC (09/17) with ongoing clinical improvement. Goal weight 155lbs -Home with family at [place], raise drill operator consulted to review salt restrictions. -outpatient BMP, phos, in 1 week and f/u Dr. Ryan [...] - renal consulted regarding volume management, possible usp dialysis planning, expedite OP f/u. Serologies and urine studies ordered. ED neg, compliments neg, cryoglobulin pending, ANCA pending, HIV neg. Continued -Added metolazone 2.5mg/daily per renal 09/13- with improving swelling, Cr bump to 2.33 so held further -Anticipate likely transition to PO agents prior to DC (?09/17) with ongoing clinical improvement. Goal weight 155lbs -Home with family at [place], raise drill operator consulted to review salt restrictions. Assessment & [...] - renal consulted regarding volume management, possible usp dialysis planning, expedite OP f/u. Serologies and urine studies ordered. -Added metolazone 2.5mg/daily per renal. -Anticipate likely transition to PO agents prior to DC with ongoing clinical improvement. Goal weight 145-150lbs -Home with family at [place], raise drill operator consulted to review salt restrictions. Assessment & [...] - renal consulted regarding volume management, possible usp dialysis planning, expedite OP f/u. Serologies and [...] - renal consulted regarding volume management, possible usp dialysis planning, expedite OP f/u. Serologies and [...] - renal consulted regarding volume management, possible predatory animal exterminator dialysis planning, expedite OP f/u. Assessment & [...] net neg 1/2-1L/day. -consider renal consult regarding predatory animal exterminator dialysis planning, expedite OP f/u. Assessment & [...] net neg 1/2-1L/day. -consider renal consult regarding predatory animal exterminator dialysis planning. Assessment & Plan (09/06/2021 10:28 [...] without behavioral disturbance 08/19/2021 Assessment & Plan (07/14/2024 8:53 AM WALL MAN): Following with neurology Assessment & Plan (01/05/2024 10:40 PM CDT): Follows with neurology. -continue risperidone 2mg QHS -continue benztropine 2mg daily Assessment & Plan (11/10/2023 4:37 PM CDT): Following with neurology Assessment & Plan (07/24/2023 1:50 PM WALL MAN): Following with neurology Assessment & Plan (01/23/2023 9:18 AM CDT): Following with neurology Assessment & Plan (10/10/2022 10:37 AM CDT): Following with neurology, ordered MRI, # given to son to schedule Assessment & Plan (06/09/2022 3:37 PM WALL MAN): Needs to reschedule with neurology Looking [facility], but declined for [facility] for schizoaffective disorder Assessment & Plan (01/14/2022 [...] needed Assessment & Plan (06/09/2022 3:37 PM WALL MAN): Reviewed PMH & PHQ Screening PHQ-2 Total [...] UTD, colonoscopy UTD Schizoaffective disorder, bipolar type 1 Assessment & Plan (08/18/2024 8:44 AM WALL MAN): Chronic, stable. Does not report any stephanie or psychosis. Medical hospitalization-reviewed. Daughter provides collateral information. Not taking any meds at this time. The patient reports tolerance for medication regimen without any notable side effects. The patient does not endorse any active suicidal ideation. The following changes were made at today's appointment: Risperdal - discontinued Will continue to monitor treatment and re-evaluate at next interval as discussed. Assessment & Plan (07/14/2024 8:54 AM WALL MAN): Following with psychiatry, recommend reaching out to them in regards to restarting risperidone Assessment & Plan (03/16/2024 3:52 PM CDT): [...] psychiatry Assessment & Plan (07/24/2023 1:50 PM WALL MAN): Following with psychiatry Assessment & Plan (01/23/2023 [...] discussed. Assessment & Plan (08/09/2021 5:42 AM WALL MAN): Following with psychiatry Assessment & Plan (08/07/2021 3:28 PM WALL MAN): Chronic condition, switch to Haldol and has had multiple different problems including acute kidney failure in infectious process. Records not available at outside hospital-[place]. Confounded by delirium. Currently experiencing delirium will discontinue Haldol and return to Risperdal as previously taking. Risperdal was discontinued due to poorly-controlled diabetes. Monitor in 1 to 2 weeks. Assessment & Plan (07/03/2021 7:24 AM WALL MAN): Following with psychiatry D/c risperidone, started on haldol Assessment & Plan (07/01/2021 9:16 PM WALL MAN): Chronic, stable. 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 The patient previously lived on her own and was observed to be hoarding. See additional problems-dementia. Evaluate again in 1 month after starting Risperdal. Iron deficiency anemia 04/02/2020 Assessment & Plan (05/06/2024 7:51 AM WALL MAN): Recommend discussing IV iron with nephrology Assessment & Plan (10/02/2020 4:35 PM CDT): Continue iron Assessment & Plan (05/28/2020 1:51 PM WALL MAN): Iron levels recently normalized, but still anemic, repeat today Assessment & Plan (04/16/2020 11:45 AM CDT): Recent iron within normal limits, H/H improving, continue supplementation until normalized Gastroesophageal reflux disease without esophagi tis 04/02/2020 Assessment & Plan (07/14/2024 8:56 AM WALL MAN): Restart protonix Upcoming EGD Assessment & Plan (01/05/2024 10:40 PM CDT): -continue famotidine Assessment & Plan (10/02/2020 4:35 PM CDT): Continue omeprazole Assessment & Plan (07/24/2020 2:06 PM WALL MAN): Recurrent symptoms off omeprazole, restart Assessment & Plan (05/28/2020 1:51 PM WALL MAN): Iron levels recently normalized, but still anemic, repeat today Assessment & Plan (04/02/2020 1:26 PM CDT): Start PPI History of amputation of toe 01/19/2020 Assessment & Plan (01/08/2021 3:50 PM CDT): Stable Assessment & Plan (10/02/2020 4:35 PM CDT): Stable Assessment & Plan (04/30/2020 1:00 PM WALL MAN): Stable Assessment & Plan (02/14/2020 5:15 PM CDT): Healing well Following with surgeon/wound clinic Assessment & Plan (01/19/2020 5:17 PM CDT): Has home health Following with vascular Hypertension associated with diabetes 12/13/2019 Assessment & Plan (07/14/2024 2:32 PM WALL MAN): Continue carvedilol, hydralazine Assessment & Plan (07/14/2024 8:51 AM WALL MAN): BP controlled today off medication Daughter reports nephrology said could restart medication, is planning to restart coreg first and monitor blood pressure prior to restarting nifedipine/hydralazine Assessment & Plan (05/06/2024 7:48 AM WALL MAN): BP controlled Continue nifedipine, hold prior to [...] x1 with HD. Most recent admission at [facility] with initiation of hydralazine and nifedipine in [...] amlodipine Assessment & Plan (08/03/2023 4:02 PM WALL MAN): BP uncontrolled Start 5mg amlodipine Assessment & Plan (07/24/2023 1:49 PM WALL MAN): Blood pressure borderline today off medications Assessment & Plan (01/23/2023 9:18 AM CDT): Blood pressure borderline low today, asymptomatic Checking labs Advised to decrease amlodipine to 5mg and monitor blood pressure Assessment & Plan (10/10/2022 10:50 AM CDT): Continue coreg 6.25mg twice a day & 40mg valsartan Assessment & Plan (08/14/2022 10:43 AM WALL MAN): Blood pressure at goal, continue coreg 6.25mg twice a day Assessment & Plan (06/09/2022 3:32 PM WALL MAN): Blood pressure at goal, continue coreg 3.125mg [...] day Assessment & Plan (08/05/2021 10:35 AM WALL MAN): Blood pressure at goal Increase amlodipine to 10mg & d/c hydralazine per cardiology Assessment & Plan (05/28/2021 4:59 PM WALL MAN): Blood pressure above goal, but previously within [...] lisinopril Assessment & Plan (08/28/2020 12:12 PM WALL MAN): Blood pressure at goal Continue lisinopril Assessment & Plan (07/24/2020 2:05 PM WALL MAN): Blood pressure at goal Continue lisinopril Assessment & Plan (05/28/2020 1:50 PM WALL MAN): BP borderline Continue 10mg lisinopril Continue to monitor Assessment & Plan (04/30/2020 12:32 PM WALL MAN): BP borderline Continue 10mg lisinopril Continue to [...] use of insulin 08/30/2019 Assessment & Plan (07/14/2024 2:31 PM WALL MAN): Controlled. Continue as per Endocrine and PCP Assessment & Plan (07/14/2024 8:50 AM WALL MAN): Following with endocrine, reviewed note Holding insulin 2/2 decreased appetite and hypoglycemia Assessment & Plan (01/05/2024 10:39 PM CDT): [...] +SSI Assessment & Plan (07/24/2023 1:49 PM WALL MAN): Lab Results Component Value Date HGBA1C 8.1 [...] trulicity Assessment & Plan (08/14/2022 10:42 AM WALL MAN): Following with endocrine Continue lantus, 12 units humalog TIDAC & 1.5mg trulicity Assessment & Plan (06/09/2022 3:32 PM WALL MAN): Following with endocrine Home blood sugar at [...] as she had discussed this with outpatient foil spinner - repeat A1c - resume home statin, not currently on feliciano due to kidney function Assessment & Plan (08/05/2021 10:35 AM WALL MAN): Continue 15 units lantus twice a day Assessment & Plan (07/03/2021 7:24 AM WALL MAN): Fasting blood sugar significantly improved Risperidone changed Continue current meds Continue to monitor Assessment & Plan (06/18/2021 11:22 AM WALL MAN): Increase lantus to 60 units nightly, if blood sugar still above goal after 1 week split into 33 units twice a day Follow up with blood sugar via portal in 2 weeks Continue jardiance 25mg Continue trulicity 4.5mg weekly Assessment & Plan (05/28/2021 4:58 PM WALL MAN): Increase lantus to 55 units nightly Continue [...] weekly Assessment & Plan (08/28/2020 1:00 PM WALL MAN): DM Care Plan: Meds: Lantus - continue [...] recheck Assessment & Plan (07/24/2020 2:05 PM WALL MAN): Formulary change / insurance, switched to [employer]. Will increase to 1.5mg Assessment & Plan (05/28/2020 1:50 PM WALL MAN): Check a1c Sixto isn't checking blood sugar regularly, but when she is she has several >200 so I lean towards increasing if a1c>7 Assessment & Plan (04/30/2020 12:31 PM WALL MAN): Blood sugar improved on 40 units basaglar [...] kidney injury) 11/30/2022 Osteomyelitis of great toe of right foot 11/06/2022 11/10/2023 Assessment & Plan (01/23/2023 9:22 [...] was in the room. Recently treated at [facility] for PNA with prolonged course of antibiotics: [...] was in the room. Recently treated at [facility] for PNA with prolonged course of antibiotics: [...] was in the room. Recently treated at [facility] for PNA with prolonged course of antibiotics: [...] was in the room. Recently treated at [facility] for PNA with prolonged course of antibiotics: [...] was in the room. Recently treated at [facility] for PNA with prolonged course of antibiotics: [...] was in the room. Recently treated at [facility] for PNA with prolonged course of antibiotics: [...] was in the room. Recently treated at [facility] for PNA with prolonged course of antibiotics: [...] was in the room. Recently treated at [facility] for PNA with prolonged course of antibiotics: [...] was in the room. Recently treated at [facility] for PNA with prolonged course of antibiotics: [...] was in the room. Recently treated at [facility] for PNA with prolonged course of antibiotics: [...] 11/10/2023 Assessment & Plan (08/14/2022 10:44 AM WALL MAN): Continue eliquis Assessment & Plan (06/09/2022 3:36 PM WALL MAN): Continue eliquis Assessment & Plan (04/02/2022 6:05 [...] 10/10/2022 Assessment & Plan (08/07/2021 3:30 PM WALL MAN): Subacute, persistent, hospitalized recently. She is alert and oriented to person and place. States that she believes it is 2020 and cannot identify the month. When told [...] Impression: Patient recently had MRI performed at [facility] which revealed acute osteomyelitis to the [...] 08/28/2020 Assessment & Plan (05/28/2020 1:52 PM WALL MAN): Encouraged to follow up with wound clinic for reassessment Assessment & Plan (04/30/2020 12:31 PM WALL MAN): Following with wound clinic Assessment & Plan [...] acute osteomyelitis on recent MRI performed at [facility]. She is being treated with antibiotic [...] Urgent referral to vascular Diabetic neuropathy 05/16/20 Assessment & Plan (01/11/2024 4:08 PM CDT): Uncontrolled Patient's daughter requesting to restart gabapentin Assessment & Plan (11/10/2023 4:37 PM CDT): Off lyrica Assessment & Plan (01/23/2023 9:17 AM CDT): Off lyrica Assessment & Plan (10/10/2022 10:36 AM CDT): Continue lyrica 150mg nightly Assessment & Plan (08/14/2022 10:42 AM WALL MAN): Continue lyrica 150mg nightly Assessment & Plan (06/09/2022 3:32 PM WALL MAN): Continue lyrica 150mg nightly Assessment & Plan [...] status. Assessment & Plan (05/28/2021 4:58 PM WALL MAN): Continue lyrica 150mg nightly Assessment & Plan [...] gabapentin Assessment & Plan (08/28/2020 1:00 PM WALL MAN): On gabapentin Assessment & Plan (07/24/2020 2:05 PM WALL MAN): Continue gabapentin Assessment & Plan (04/02/2020 1:22 [...] Encounters Date Type Department Care Team Description 09/01/19 2:15 PM CDT Office Visit [facility] Cardiology [address] [place] [phone] Santo Vail MD Dyspnea, unspecified type (Primary Dx) 08/23/19 8:20 AM WALL MAN Office Visit [facility] Endocrinology Metabolism and Lipid [address] [place] [address] Smith Gibbs MD Type 2 diabetes mellitus with diabetic nephropathy, with long-term current use of insulin (HCC) (Primary Dx); Type 2 diabetes mellitus with diabetic neuropathy, with long-term current use of insulin (HCC); Mixed hyperlipidemia; ESRD on hemodialysis (HCC); Primary hypertension 08/18/19 8:15 AM WALL MAN Telemedicine [facility] [id number] [place] [address] [address] [place] [address] Adryan Swenson MD Schizoaffective disorder, bipolar type (HCC) (Primary Dx) 08/17/19 25 Telephone [facility] at [address] [place] [phone] Cherelle Corcoran MD Medical Question/Miscellaneous 08/02/19 25 JOY ED Outreach [facility] Care Organization [address] [place] [id number] Felicia Gacria MA 08/02/19 25 Nurse Triage [facility] at [address] [place] [phone] Cherelle Corcoran MD 07/31/19 9:25 PM WALL MAN - 07/31/19 10:27 PM WALL MAN Emergency [facility] Emergency Department [address] [place] [address] Discharge Disposition: Left without being seen 07/27/19 25 Orders Only [facility] Endocrinology Metabolism and Lipid [address] [place] [address] [place] [address] ProviderJoe MD 07/21/19 25 Telephone [facility] Dialysis Access Center at [facility] [address] [place] [address] Varsha Oneill RN 07/18/19 2:45 PM WALL MAN Office Visit [facility] at [address] [place] [phone] Cherelle Corcoran MD Fall, subsequent encounter (Primary Dx); Neck pain; Pressure injury of buttock, stage 1, unspecified laterality 07/18/19 25 Orders Only [facility] at [place] [address] [place] [phone] Jaya Grier MD Ulcer of esophagus without bleeding (Primary Dx) 07/15/19 25 2:30 PM WALL MAN - 07/15/19 11:59 PM WALL MAN Hospital Encounter [facility] D[facility] at [facility] [facility] [address] [place] [address] ESRD (end stage renal diseas e) on dialysis (HCC) (Primary Dx) Discharge Disposition: Discharge to home or self care 07/15/19 10:00 AM WALL MAN - 07/15/19 11:00 AM WALL MAN Surgery [facility] Guide Travel [facility] [place] [address] Edgardo Kauffman MD PERMACATH EXCHANGE [[id number] (CPT )] 07/15/19 9:13 AM WALL MAN - 07/15/19 1:20 PM WALL MAN Hospital Encounter [facility] Travel [address] [place] [address] Edgardo Kauffman MD ESRD (end stage renal disease) on dialysis (HCC) Discharge Disposition: Discharge to home or self care 07/14/19 12:35 PM WALL MAN - 07/14/19 11:59 PM WALL MAN Hospital Encounter [facility] [address] [place] [address] Discharge Disposition: Discharge to home or self care 07/14/19 12:11 PM WALL MAN - 07/14/19 11:59 PM WALL MAN Hospital Encounter [facility] D[facility] Access Center at [address] [place] [address] ESRD (end stage renal diseas e) on dialysis (HCC) (Primary Dx); Type 2 diabetes mellitus with diabetic neuropathy, with long-term current use of insulin (HCC); Hypertension associated with diabetes (HCC); ESRD on hemodialysis (HCC); Hyperlipidemia associated with type 2 diabetes mellitus (HCC) Discharge Disposition: Discharge to home or self care 07/13/19 11:03 AM WALL MAN Anesthesia Event [facility] [address] [place] [address] Larry Valdivia MD 07/13/19 9:00 AM WALL MAN - 07/13/19 9:30 AM WALL MAN Surgery [facility] [address] [place] [address] Jaya Grier MD ESOPHAGOGASTRODUODENOSCOPY BIOPSY 07/13/19 8:39 AM WALL MAN - 07/13/19 12:26 PM [facility] Hospital Encounter [facility] [address] [place] [address] Jaya Grier MD Anemia, unspecified type; Gastritis without bleeding, unspecified chronicity, unspecified gastritis type; Gastritis, presence of bleeding unspecified, unspecified chronicity, unspecified gastritis type Discharge Disposition: Discharge to home or self care 07/13/19 Nurse Triage [facility] at [address] [phone] Cherelle Corcoran MD 07/13/19 JOY ED Outreach [facility] Care Organization [address] [place] [address] Ale Goldstein MA 07/12/19 11:16 AM WALL MAN - 07/12/19 3:44 PM [facility] Emergency [facility] Emergency Department [address] [place] [address] Fall, initial encounter (Primary Dx); Acute cystitis without hematuria Discharge Disposition: Discharge to home or self care 07/12/19 Telephone [facility] at [address] [address] Cherelle Corcoran MD Medical Question/Miscellaneous 07/11/19 Nurse Triage [facility] at [address] [phone] Cherelle Corcoran MD 07/08/19 1:00 PM WALL MAN Office Visit [facility] at [address] [address] Cherelle Corcoran MD Altered mental status, unspecified altered mental status type (Primary Dx); Type 2 diabetes mellitus with diabetic neuropathy, with long-term current use of insulin (HCC); Hypertension associated with diabetes (HCC); Hyperlipidemia associated with type 2 diabetes mellitus (HCC); ESRD on hemodialysis (HCC); Late onset Alzheimer's dementia without behavioral disturbance (HCC); Parkinsonism, unspecified Parkinsonism type (HCC); Schizoaffective disorder, bipolar type (HCC); Gastroesophageal reflux disease without esophagitis; Frailty 07/07/19 25 3:00 PM WALL MAN Office Visit [facility] [address] [place] [phone] Santo Vail MD Dyspnea, unspecified type (Primary Dx) 07/07/19 25 1:30 PM WALL MAN Office Visit [facility] Endocrinology Metabolism and Lipid [address] [place] [address] Medical Office [address], [address] [place] [address] Pippa Troy NP Type 2 diabetes mellitus with diabetic nephropathy, with long-term current use of insulin (HCC) (Primary Dx); Dyslipidemia; Primary hypertension 07/04/19 25 Telephone [facility] [place] [address] [place] [address] [address] [place] [address] Cherelle Corcoran MD JOY Questions 06/27/19 25 Nurse Triage [facility] at [address] [place] [address] Cherelle Corcoran MD 06/17/20 24 Orders Only [facility] at [address] [place] [address] Jaya Grier MD Anemia, unspecified type (Primary Dx); Gastritis without bleeding, unspecified chronicity, unspecified gastritis type from Last 3 Months Immunizations Immunization Administration Dates Next Due Heplisav-b (Hepatitis B) 03/10/2024,12/20,12/10/2023,11/04 Influenza Nasal, Unspecified 04/17/2017 Influenza, Quadrivalent, Hig h Dose, Preservative Free, Intrr 08/07/2022,04/01/2022,03/07/2021,04/02 Influenza, Trivalent, Adjuva nted, Intramuscular 04/05/2024,04/06/2019 Influenza, Trivalent, IM (MDV) 04/17/2017 PPD TEST 10/22/2023 Pfizer SARS-CoV-2 Monovalent Vaccination (12+ Yrs) PURPLE 06/11/2021,10/13/2020,09/22/2020 Pneumococcal Conjugate PCV 13 03/31/2017 Pneumococcal Conjugate Pcv20 04/05/2024 Pneumococcal Polysaccharide PPV23 01/20/2019 Surgical History Surgery Date Site/Laterality Comments SECTION Right right foot TOE AMPUTATION 01/06/2020 Right 4th toe amp/ foot debridement/ Dr. Anat Pelayo EYE SURGERY cataracts TUNNELED LINE PLACEMENT > 5 YEARS 10/15/2023 N/A [facility] permacat - Dr. Mcdonald (exchanged 07/15/24 - Dr. Jani Kauffman) FLUORO GUIDED INJECTION SHOULDER LEFT 12/18/2023 Left COLONOSCOPY Medical History Medical History Date Comments Depression Schizophrenia (HCC) Diabetic neuropathy (HCC) Arthritis Hypertension Type 2 diabetes mellitus (HCC) Hyperlipidemia Dementia (HCC) CHF (congestive heart failure) (HCC) Osteomyelitis (HCC) Movement disorder GERD (gastroesophageal reflux disease) Anemia HL (hearing loss) Rotator cuff tear, left CKD (chronic kidney disease) stage V requiring chronic dialysis (HCC) End stage chronic kidney disease (HCC) hemodialysis rotates, every other day Urinary tract infection DVT (deep venous thrombosis) (HCC) Pulmonary hypertension (HCC) mod erate Family History Medical History Relation Name Comments [...] materials from doctor or pharmacy Often 01/20/2024 [facility] Utilities Answer Date Recorded In the past 12 months has th e [employer], gas, oil, or water company threatened to [...] you attend chur ch or mormon services? More than 4 times [...] you have a drink containing alcohol? Never 09/05/2024 Q2: How many drinks containi ng alcohol do you have on a typical day when you are drinking? Patient does not drink Q3: How often do you have si x or more drinks on one occasion? Never 09/05/2024 Overall Financial Resource Strain (CARDIA) Answe r [...] the money to buy more. Never true 10/30/20 24 Within the past 12 months, t [...] in a prison (including now)? No 10/30/2023 PHQ-9 Answer Date Recorded PHQ-9 Total Score 0 04/20/2024 Housing Stability Vital Sign Answer Fuentes [...] making you feel afraid or unsafe? Denies 07/31/2024 Comments No Sex and Gender Information Value Date Recorded Sex Assigned at Not on file Legal Sex Female 9:03 AM WALL MAN Gender Identity Female 02/08/2020 6:39 PM CDT Sexual Orientation Not on file Obstetrics History Para Term AB IAB SAB Ectopic Multiple Livin g Live Births 3 Date Outcome GA Total Labor Labor/2nd/3rd Weight Sex Type Anes PTL Danielle A1 A5 Name Clin Last Filed Vital Signs Vital Sign Reading Time Taken Comments Blood Pressure 110/56 08/31/2024 2:38 PM CDT Pulse 74 08/31/2024 2:38 PM CDT Temperature 36.3 C (97.3 F) 07/31/2024 12:52 PM WALL MAN Respiratory Rate 16 07/31/2024 12:52 PM WALL MAN Oxygen Saturation 97% 08/31/2024 2:38 PM CDT Inhaled Oxygen Concentration - - Weight 60.1 kg (132 lb 6.4 oz) 08/31/2024 2:38 P M CDT Height 157.5 cm (5' 2 ) 08/22/2024 8:51 AM WALL MAN Body Mass Index 24.22 08/22/2024 8:51 AM WALL MAN Plan of Treatment Upcoming Encounters Date Type Department Care Team (Latest Contact Info) Description 09/13/2024 8:00 AM CDT Hospital Encounter [facility] [address] [place] [id number] Jaya Grier MD [facility] [address] [place] [address] [place] [place] [address] 09/13/2024 8:00 AM CDT - 09/13/2024 8:30 AM CDT Surgery [facility] [address] [place] [address] Jaya Grier MD [facility] [address] [place] [address] [place] [id number] ESOPHAGOGASTRODUODENOSCOPY Scheduled Procedures Name Priority Associated Diagnoses Date/Ti me ESOPHAGOGASTRODUODENOSCOPY Ulcer of esophagus without bleeding 09/13/2024 8:00 AM CDT COLONOSCOPY Iron deficiency anemia due to chronic blood loss Health Maintenance Due Date Last Done Comments DTaP/Tdap/Td Vaccine (1 - Tdap) 1961 Zoster Vaccine (1 of 2) 2000 Foot Exam 04/02/2021 04/02/2020 Albumin Creatinine Ratio, Urine 10/11/2023 10/10/2022, 09/14/2021, 08/05/2021 Covid-19 Vaccine (4 - 2023-2 5 season) 2024 06/11/2021, 10/13/2020, 09/22/2020 Well Visit 65+ 11/09/2024 11/10/2023, 05/22, 01/08/2021 Breast Cancer Screening-Mammogram 01/21/2025 01/22/2024, 01/22/2024, 09/25/2022, Additional history exists Hemoglobin A1C 02/22/2025 08/22/2024, 04/23, 10/08/2023, Additional history exists Depression Screening 04/19/2025 04/19/2024, 04/19/2024, 11/10/2023, Additional history exists Fall Risk Assessment 04/23/2025 04/23/2024, 11/10/2023, 06/09/2022, Additional history exists Lipid Panel 05/16/2025 05/16/2024, 10/20, 09/10/2021, Additional history exists eGFR 07/14/2025 07/14/2024, 06/23, 04/23/2024, Additional history exists Dilated Eye Exam 07/27/2025 07/27/2024, , 05/27/2022, Additional history exists Osteoporosis Screening-Bone Density Scan [...] Pneumococcal vaccine 65+ Completed 024, 01/20/2019, 03/31/2017 Hepatitis B Screening Completed 04/21/2024 , 03/10/2024, 01/07/2024, Additional history exists Medical Devices Implanted Type Area Pai Gow Dealer Device Identifier Shelf Expiration Date Model / Serial / Lot [employer] Dur[employer]ax Vascpak Safesheath D-Pro 15.5fr 24cm Kit Catheter [id number] - [id number] Implanted:Qty: 1 on 10/15/2023 at [facility] 10/19/2025 [id number] 85 / / [id number] [facility] [employer]low Embosafe 15.5fr 24cm Basic 2 Lumen Kit Catheter [id number] - [id number] Implanted:Qty: 1 on 07/15/2024 by Edgardo Kauffman MD at [facility] 08/19/2026 [id number] 15 / / [id number] Procedures Procedure Name Priority Date/Time Associated Diagnosis Comments POCT HEMOGLOBIN A1C Routine 08/22/2024 8:55 AM WALL MAN Type 2 diabetes mellitus with diabetic nephropathy, with long-term current use of insulin (HCC) RESPIRATORY PATHOGEN PANEL STAT 07/31 1:02 PM WALL MAN DIABETIC EYE EXAM Routine 07/27/2024 12:37 PM WALL MAN HM DIABETES EYE EXAM Routine 07/22/2024 XR CHEST 1 VIEW ED Urgent/IP Urgent 07/15/2024 1:11 PM WALL MAN RPL DRE CVC W/O [id number] [id number] Routine 07/15 12:40 PM WALL MAN ESRD (end stage renal disease) on dialysis ([facility]) XR CHEST 1 VIEW ED Urgent/IP Urgent 07/14/2024 1:16 PM WALL MAN EGFR STAT 07/14/2024 12:34 PM WALL MAN DIFFERENTIAL AUTO STAT 07/14/2024 12:34 PM WALL MAN BASIC METABOLIC PANEL STAT 07/14/2024 12:34 PM WALL MAN CBC WITH AUTO DIFFERENTIAL STAT 07/14 12:34 PM WALL MAN SURGICAL PATHOLOGY Routine 07/13/2024 11:10 AM WALL MAN Anemia, unspecified type Gastritis without bleeding, unspecified chronicity, unspecified gastritis type ESOPHAGOGASTRODUODENOSCOPY BIOPSY 07/13/2024 11:03 AM WALL MAN Anemia, unspecified type Gastritis without bleeding, unspecified chronicity, unspecified gastritis type EGD 07/13/2024 10:59 AM WALL MAN POC BLOOD GAS AND CHEMISTRIE S, VENOUS Routine 07/13/2024 10:12 AM WALL MAN TROPONIN T HIGH-SENSITIVITY 2-HOUR Timed 07/12/2024 1:59 PM WALL MAN URINALYSIS, MICROSCOPIC ONLY STAT 1:05 PM WALL MAN DRUGS OF ABUSE SCREEN, URINE WITHOUT CONFIRMATION STAT 07/12/2024 1:05 PM WALL MAN URINE CULTURE STAT 07/12/2024 1:05 PM WALL MAN URINALYSIS AND REFLEX TO MICROSCOPIC AND CULTURE STAT 07/12/2024 1:05 PM WALL MAN THYROID FUNCTION CASCADE STAT 025 11:53 AM WALL MAN EGFR STAT 07/12/2024 11:53 AM WALL MAN DIFFERENTIAL AUTO STAT 07/12/2024 11:53 AM WALL MAN TROPONIN T HIGH-SENSITIVITY SERIES (BASELINE, 2HR, 4HR, 6HR) STAT 07/12/2024 11:53 AM WALL MAN CBC WITH AUTO DIFFERENTIAL STAT 07/12 11:53 AM WALL MAN COMPREHENSIVE METABOLIC PANEL STAT 11:53 AM WALL MAN INFLUENZA A/B, RSV, AND COVID-19 PCR Routine 07/12/2024 11:53 AM WALL MAN ECG 12-LEAD STAT 07/12/2024 11:[address] FACIAL BONES WO CONTRAST ED 06/23 10:[address] CERVICAL SPINE WO CONTRAST ED 10:[address] HEAD WO CONTRAST ED 07/12/2024 10:38 AM WALL MAN XR SHOULDER RIGHT 2 OR MORE VIEWS ED 07/12/2024 10:08 AM WALL MAN XR SHOULDER LEFT 2 OR MORE VIEWS ED 07/12/2024 10:08 AM WALL MAN POCT GLUCOSE DEVICE Routine 07/12/2024 9:33 AM WALL MAN LIPID PANEL Routine 05/16/2024 10:14 AM WALL MAN Mixed hyperlipidemia COLONOSCOPY 03/01/2024 8:49 AM CDT DEXA AXIAL SKELETON BONE DENSITY 1 OR MORE SITES Schedule Routine, Read Routine (OP Routine) 01/22/2024 12:32 PM CDT Post-menopausal SCREENING MAMMOGRAM BILATERA L W STALIN Schedule Routine, Read Routine (OP Routine) 01/22/2024 12:21 PM CDT Encounter for screening mammogram for breast cancer HEPATITIS PANEL, ACUTE Routine 6:50 AM CDT ALBUMIN CREATININE RATIO, URINE Routine 10/10/2022 11:39 AM CDT Diabetic nephropathy (HCC) from Last 3 Months or Most Recently Relevant to Health Maintenance Results * POCT hemoglobin A1c (08/22/2024 8:55 AM WALL MAN) Hemoglobin A1C, POC 7.7 4.0 - 5.6 % Blood 08/22/2024 8:55 AM WALL MAN Smith Gibbs MD POINT OF CARE TEST ORDERABLE S Final Result * Respiratory pathogen panel Nasopharyngeal (07/31/2024 1:02 PM WALL MAN) Influenza A RNA Not Detected Not Detected CH Influenza B RNA Not Detected Not Detected CERNER CH RSV RNA Not Detected Not Detected CERNER CH COVID-19 RNA Not Detected Not Detected CERNER CH Coronavirus 229E RNA Not Detected Not Detected CERNER CH Coronavirus HKU1 RNA Not Detected Not Detected CERNER CH Coronavirus NL63 RNA Not Detected Not Detected CERNER CH Coronavirus OC43 RNA Not Detected Not Detected CERNER CH Adenovirus DNA Not Detected Not Detected CERNER CH Metapneumovirus RNA Not Detected Not Detected CERNER CH Rhinovirus/Enterov irus RNA Not Detected Not Detected CERNER CH Parainfluenza 1 RNA Not Detected Not Detected CERNER CH Parainfluenza 2 RNA Not Detected Not Detected CERNER Parainfluenza 3 RNA Not Detected Not Detected CERNER Parainfluenza 4 RNA Not Detected Not Detected CERNER B. pertussis DNA Not Detected Not Detected CERNER B. parapertussis DNA Not Detected Not Detected CERNER C. pneumoniae DNA Not Detected Not Detected CERNER M. pneumoniae DNA Not Detected Not Detected CERNER Comment: Interpretive Data The [employer] FilmArray Respiratory Panel (RP2.1) assay is a [...] cross-react with some isolates of Coronavirus HKU1. A dual positive result may be due to cross-reactivity or may indicate a co- infection. The detection and identification of specific viral and bacterial nucleic acids from individuals exhibiting signs and symptoms of a respiratory infection aids in the diagnosis of respiratory infection if used in conjunction with other clinical and epidemiological information. The results of this test should not be used as the sole basis for diagnosis, treatment, or other management decisions. Negative results in the setting of a respiratory illness may be due to infection with pathogens that are not detected by this test. Positive results do not rule out infection/co-infection with other organisms. The agent(s) detected by the FilmArray RP2.1 may not be the definite cause of disease. Additional testing (lab, imaging, etc.) may be necessary when evaluating a patient with possible respiratory tract infection. The FilmArray RP2.1 assay has FDA clearance for testing of TRAIN CONTROL TECHNICIAN swabs. The performance characteristics of this assay have been determined by [facility]. Current interpretive data was last revised on 2021. Nasopharyngeal 07/31/2024 1: 02 PM WALL MAN 07/31/2024 1:05 PM WALL MAN Narrative NILSA - 07/31/2024 2:05 PM WALL MAN Is the Patient experiencing symptoms consistent with COVID?->Yes Surveillance testing for transplant patient?->No Result [facility] Lucy Lucero MD LAB MICROBIOLOGY - [facility] ORDERABLES Final Result NILSA [address] Department [place] [address] * Diabetic Eye Exam (07/27/2024 12:37 PM WALL MAN) Historical Provider HEALTH MAINTENANCE Final Result * HM DIABETES EYE EXAM (07/22/2024) Historical Provider HEALTH MAINTENANCE Final Result * XR Chest 1 View (07/15/2024 1:11 PM WALL MAN) Anatomical Region Laterality Modality Body, Chest N/A Computed Radiogr aphy 07/15/2024 1:35 PM WALL MAN Narrative 07/15/2024 1:36 PM WALL MAN EXAM DESCRIPTION: XR CHEST 1 VIEW REASON FOR STUDY: Other (type), Right IJ tunneled dialysis catheter S/p right IJ tunneled dialysis catheter TECHNIQUE: Single frontal radiographic view(s) of the chest. COMPARISON: 07/14/2024 FINDINGS: The heart, mediastinum, and pulmonary vasculature are grossly stable. There is a right internal jugular dialysis catheter noted with its distal tip overlying the atrial caval junction. There is no definite evidence of a pneumothorax. There is no definite evidence of a focal consolidation or pleural effusion. The osseous structures are acutely grossly stable. IMPRESSION: Right internal jugular dialysis catheter is noted with its distal tip overlying the atrial caval junction. No definite evidence of a pneumothorax. THIS IS AN ELECTRONICALLY VERIFIED FINAL REPORT 07/15/2024 1:36 PM - Electronically signed by Yosef Lindo D.O. PS T: Report ID: [id number] Reading Location: [id number] Procedure Note Yosef Lindo, - 07/15/2024 EXAM DESCRIPTION: XR CHEST 1 VIEW REASON FOR STUDY: Other (type), Right IJ tunneled dialysis catheter S/p right IJ tunneled dialysis catheter TECHNIQUE: Single frontal radiographic view(s) of the chest. COMPARISON: 07/14/2024 FINDINGS: The heart, mediastinum, and pulmonary vasculature are grossly stable. There is a right internal jugular dialysis catheter noted withits distal tip overlying the atrial caval junction. There is no definiteevidence of a pneumothorax. There is no definite evidence of a focal consolidationor pleural effusion. The osseous structures are acutely grossly stable. IMPRESSION: Right internal jugular dialysis catheter is noted with its distal tip overlying the atrial caval junction. No definite evidence of apneumothorax. THIS IS AN ELECTRONICALLY VERIFIED FINAL REPORT 07/15/2024 1:36 PM - Electronically signed by Yosef Lindo D.O. PS T: Report ID: [id number] Reading Location: [id number] Edgardo Kauffman MD IMG XR PROCEDURES Final Re sult * RPL DRE CVC W/O PUMP [id number] (07/15/2024 12:40 PM WALL MAN) Anatomical Region Laterality Modality X-Ray Angiograph y Narrative 07/15/2024 12:45 PM WALL MAN Please see OpNote for result. Edgardo Kauffman MD CV CARDIAC CATH PROCEDURES Final Result * XR Chest 1 View (07/14/2024 1:16 PM WALL MAN) Anatomical Region Laterality Modality Body, Chest N/A Computed Radiogr aphy 07/14/2024 1:20 PM WALL MAN Narrative 07/14/2024 1:22 PM WALL MAN EXAM DESCRIPTION: XR CHEST 1 VIEW REASON FOR STUDY: indwelling vascular catheter Check indwelling vascular catheter placement that was inserted 10/15/23 at an outside facility TECHNIQUE: 1 radiographic view(s) of the chest. COMPARISON: 05/02/2024 FINDINGS: LUNGS: No focal opacity, pleural effusion, or pneumothorax. HEART/MEDIASTINUM: Cardiac silhouette normal in size. Mediastinal and hilar contours appear normal. LINES/TUBES: A right IJ approach central venous catheter is in stable position, terminating at the superior cavoatrial junction. No evidence of kinks. BONES: No acute osseous abnormality. IMPRESSION: Stable position of a right IJ approach central venous catheter, terminating at the superior cavoatrial junction. THIS IS AN ELECTRONICALLY VERIFIED FINAL REPORT 07/14/2024 1:22 PM - Electronically signed by Salvador Villa M.D. KR T: Report ID: [id number] Reading Location: [id number] Procedure Note Salvador Villa MD - 07/14/2024 EXAM DESCRIPTION: XR CHEST 1 VIEW REASON FOR STUDY: indwelling vascular catheter Check indwelling vascular catheter placement that was inserted 10/15/23 atan outside facility TECHNIQUE: 1 radiographic view(s) of the chest. COMPARISON: 05/02/2024 FINDINGS: LUNGS: No focal opacity, pleural effusion, or pneumothorax. HEART/MEDIASTINUM: Cardiac silhouette normal in size. Mediastinal andhilar contours appear normal. LINES/TUBES: A right IJ approach central venous catheter is in stable position, terminating at the superior cavoatrial junction. No evidence of kinks. BONES: No acute osseous abnormality. IMPRESSION: Stable position of a right IJ approach central venouscatheter, terminating at the superior cavoatrial junction. THIS IS AN ELECTRONICALLY VERIFIED FINAL REPORT 07/14/2024 1:22 PM - Electronically signed by Salvador Villa M.D. KR T: Report ID: [id number] Reading Location: [place] [address] Edgardo Kauffman MD IMG XR PROCEDURES Final Re sult * (ABNORMAL) eGFR (07/14/2024 12:34 PM WALL MAN) eGFR 7(L) >=60 mL/min/1. 73 m2 Comment: Interpretive Data Reference Interval Normal >/= [...] interpretive data was last reviewed 2021. Blood 07/14/2024 12:3 4 PM WALL MAN 07/14/2024 12:41 PM WALL MAN Edgardo Kauffman MD LAB BLOOD ORDERABLES Final Result [facility] Department [place] [address] * (ABNORMAL) Differential, auto (07/14/2024 12:34 PM WALL MAN) Neutrophil abs 7.8(H) 1.5 - 6.5 K/cumm Imm gran abs 0.0 0.0 - 0.1 K/cumm [facility] Lymphocyte abs 1.5 0.8 - 3.3 K/cumm [facility] Monocyte abs 0.5 0.2 - 0.8 K/cumm [facility] Eosinophil abs 0.2 0.0 - 0.5 K/cumm [facility] Basophil abs 0.0 0.0 - 0.1 K/cumm [facility] Neutrophil pct 78.1 % [facility] Comment: Interpretive Data Percent cell count reference ranges are not reported, since discordance with absolute values may lead to misinterpretation of CBC data. Current Interpretive Data was last revised on 2017. Imm gran pct 0.4 % [facility] Comment: Interpretive Data Percent cell count reference ranges are not reported, since discordance with absolute values may lead to misinterpretation of CBC data. Current Interpretive Data was last revised on 2017. Lymphocyte pct 14.8 % [facility] Comment: Interpretive Data Percent cell count reference ranges are not reported, since discordance with absolute values may lead to misinterpretation of CBC data. Current Interpretive Data was last revised on 2017. Monocyte pct 4.7 % [facility] Comment: Interpretive Data Percent cell count reference ranges are not reported, since discordance with absolute values may lead to misinterpretation of CBC data. Current Interpretive Data was last revised on 2017. Eosinophil pct 1.6 % [facility] Comment: Interpretive Data Percent cell count reference ranges are not reported, since discordance with absolute values may lead to misinterpretation of CBC data. Current Interpretive Data was last revised on 2017. Basophil pct 0.4 % [facility] Comment: Interpretive Data Percent cell count reference ranges are not reported, since discordance with absolute values may lead to misinterpretation of CBC data. Current Interpretive Data was last revised on 2017. Blood 07/14/2024 12:3 4 PM WALL MAN 07/14/2024 12:41 PM WALL MAN Edgardo Kauffman MD LAB BLOOD ORDERABLES Final Result Performing Organization Address [facility] Co de Phone Number NILSA RODRIGES [address] [place] [id number] * (ABNORMAL) CBC with auto differential (07/14/2024 12:34 PM WALL MAN) [facility] WBC 9.9 3.8 - 9.9 K/cumm Hgb 11.6(L) 11.9 - 15.5 g/dL [facility] Hct 35.3(L) 35.6 - 45.5 % [facility] Plt 241 150 - 400 K/cumm [facility] MPV 11.0 9.1 - 12.3 fL [facility] RBC 3.63(L) 3.90 - 5.20 M/cumm [facility] MCV 97.2(H) 81.3 - 96.4 fL [facility] MCH 32.0 27.1 - 33.3 pg [facility] MCHC 32.9 32.3 - 35.7 g/dL [facility] RDW CV 15.4(H) 11.1 - 14.9 % [facility] RDW SD 54.8(H) 35.7 - 48.1 fL [facility] NRBC abs 0.00 0.00 - 0.01 K/cumm [facility] Blood 07/14/2024 12:3 4 PM WALL MAN 07/14/2024 12:41 PM WALL MAN Edgardo Kauffman MD LAB BLOOD ORDERABLES Final Result Performing Organization Address City/[facility] Co de Phone Number NILSA [address] [place] [address] * (ABNORMAL) Basic metabolic panel (07/14/2024 12:34 PM WALL MAN) [facility] Sodium 138 135 - 145 mmol/L Potassium, pl 4.1 3.3 - 4.9 mmol/L [facility] Comment:Hemolyzed; Potassium value may be falsely elevated by as much as 1.0 mmol/L. Suggest redraw and reanalysis. Chloride 100 97 - 110 mmol/L [facility] CO2 25 22 - 32 mmol/L [facility] Anion gap 13 2 - 15 mmol/L [facility] BUN 51(H) 6 - 25 mg/dL [facility] Creatinine 6.22(H) 0.60 - 1.10 mg/dL [facility] Glucose 155 70 - 199 mg/dL [facility] Comment: Interpretive Data Fasting glucose >/= 126 [...] 2022. Calcium 9.4 8.5 - 10.3 mg/dL [facility] Blood 07/14/2024 12:3 4 PM WALL MAN 07/14/2024 12:41 PM WALL MAN Edgardo Kauffman MD LAB BLOOD ORDERABLES Final Result [address] Department [place] [address] * Surgical pathology (07/13/2024 11:10 AM WALL MAN) Tissue (Duodenum, Biopsy) 07/13/2024 11:10 AM WALL MAN Tissue (Gastric/Stomach biopsy) 07/13/2024 11:11 AM WALL MAN Tissue (Gastric/Stomach biopsy) 07/13/2024 11:11 AM WALL MAN Tissue (Esophageal biopsy) 07/13/2024 11:13 AM WALL MAN Narrative PATHOLOGY [facility] - 07/14/2024 1:59 PM WALL MAN [facility] Department of Pathology [address] [place] [id number] Note to Patients: This report may contain a detailed description of human tissue sent by a health care provider to the laboratory for pathologic evaluation. The content of this report is essential for diagnosis and may provide important critical findings. This information may be unfamiliar to patients to review without a medical professional present. It is advised that the patient review this report in the presence of a health care provider who can answer questions and explain the details. Final Report Patient Name: SIXTO CHAKRABORTY : 1950 (Age: 73) Gender: F Address: [address] [place] [address] Hospital #: [id number] Service: Gastro Location: Patient Type: [facility] Taken: 07/13/2024 Received: 07/13/2024 Accessioned: 07/13/2024 Reported: 07/14/2024 Physician(s): Cinthia Jarvis M.D. Diagnosis: A. Small intestine, duodenum, biopsy: - Duodenal mucosa with no significant abnormality. - Negative for intraepithelial lymphocytosis, villous blunting and crypt hyperplasia. B. Stomach, body and antrum, biopsy: - Antral and oxyntic mucosa with reactive epithelial changes. - No Helicobacter pylori is seen. C. Esophagus, distal, biopsy: - Cardia-type mucosa with chronic inflammation and reactive epithelial changes. - No goblet cells characteristic of Bryan mucosa are seen. - Squamous mucosa with reactive epithelial changes. D. Esophagus, distal, ulcer, biopsy: - Squamous mucosa with reactive epithelial changes and epidermoid metaplasia. - Negative for dysplasia. Romaine Interiano MD, PHD Report Electronically Reviewed and Signed Out By Romaine Interiano MD, PHD 07/14/2024 13:59:11 Specimen(s) Received: A: Duodenal Biopsy B: Gastric body and antrum biopsy C: Distal esophageal biopsy D: Distal esophageal ulcer Microscopic Description: Unless gross-only is specified, the final diagnosis for each specimen is based on a microscopic examination of each tissue sample. Clinical History: The patient is a 73-year-old woman with anemia and gastritis without bleeding. Operative procedure: Upper GI endoscopy with biopsy. Gross Description Received in four formalin jars labeled with the patient's identifiers. A. Labeled duodenal biopsy rule out celiac disease and consists of three cowan-pink tissue fragments ranging from 0.2-0.3 cm. Entirely submitted. Labeled A1. Jar 0. B. Labeled gastric body and antrum biopsy rule out H pylori and consists of two cowan-pink tissue fragments measuring 0.3 cm and 0.5 cm. Entirely submitted. Labeled B1. Jar 0. C. Labeled distal esophageal biopsy rule out Bryan's esophagus and consists of two cowan-pink tissue fragments each measuring 0.2 cm. Entirely submitted. Labeled C1. Jar 0. D. Labeled distal esophageal ulcer and consists of two cowan-white tissue fragments each measuring 0.4 cm. Entirely submitted. Labeled D1. Jar 0. [facility]/07/13/2024 13:31 CAMILA Johnson, PA (ASCP) Microscopic slide review and interpretation for this case was performed at [facility], Department of Surgical Pathology, [address] [facility] [place], [place] [id number], [place] [address] CLIA # [id number] us Jaya Grier MD LAB PATHOLOGY ORDERABLES Final R esult PATHOLOGY [facility] * EGD (07/13/2024 10:59 AM WALL MAN) Anatomical Region Laterality Modality Other Narrative Procedure Note Jaya Grier MD - 07/13/2024 10:59 AM [facility] GI ENDOSCOPY Patient Name: Sixto Chakraborty Procedure Date: 07/13/2024 10:59 AM Date of : 1950 Admit Type: Outpatient Age: 73 Gender: Female Attending MD: Jaya Grire M.D. Room: [facility] ENDOSCOPY ROOM 06 Note Status: Finalized Procedure: Upper GI endoscopy Indications: Abdominal pain Referring MD: Providers: Jaya Grier M.D. Medicines: Monitored Anesthesia Care Complications: No immediate complications. Procedure: Pre-Anesthesia Assessment: - Prior to the [...] scope was passed under direct vision. The GIF-H180 upper endoscope was introduced through the mouth, and advanced to the second part of duodenum. The upper GI endoscopy was accomplished without difficulty. The patient tolerated the procedure well. Findings: One linear esophageal ulcer with no bleeding and no stigmata ofrecent bleeding was found in the distal esophagus. The lesion was 8 mm in largest dimension. Biopsies were taken with a cold forceps forhistology. The Z-line was irregular and was found in the distal esophagus. Thiswas biopsied with a cold forceps for evaluation to rule out Bryan's Esophagus. Mild inflammation characterized by erythema was found in the stomach. Biopsies were taken with a cold forceps for Helicobacter pyloritesting. The examined duodenum was normal. Biopsies for histology were takenwith a cold forceps for evaluation of celiac disease. The cardia and gastric fundus were normal on retroflexion. The exam was otherwise without abnormality. Impression: - Esophageal ulcer with no bleeding and no stigmataof recent bleeding. Biopsied. - Z-line irregular, in the distal esophagus.Biopsied. - Gastritis. Biopsied. - Normal examined duodenum. Biopsied. - The examination was otherwise normal. Recommendation: - Patient has a contact number available for emergencies. The signs and symptoms of potential delayed complications were discussed with thepatient. Return to normal activities tomorrow. Written discharge instructions were provided to thepatient. - Resume previous diet. - Continue pantoprazole 40 mg p.o. b.i.d.. Restart Carafate 1 g p.o. 4 times a day. - Avoid NSAIDs. - Await pathology results. - Repeat upper endoscopy in 2 months to checkhealing. Jaya Grier M.D. Jaya Grier M.D. 07/13/2024 11:19:10 AM . Number of Addenda: 0 Note Initiated On: 07/13/2024 10:59 AM Recognized by the [employer] for promoting quality in endoscopy Jaya Grier MD ENDOSCOPY PROCEDURES Final Resul t * (ABNORMAL) POC Blood Gas and Chemistries, Venous - (07/13/2024 10:12 AM WALL MAN) pH,chris POC 7.40 7.32 - 7.43 pCO2, chris POC 49 40 - 50 mmHg [facility] pO2,chris POC 36 mmHg [facility] Comment: Interpretive Data No reference range established. Current interpretive data was last revised 2020. HCO3, chris (Calc) POC 30 20 - 30 mmol/L [facility] Base excess, chris POC 4 mmol/L [facility] Comment: Interpretive Data No reference range established. Current interpretive data was last revised 2020. Hemoglobin, chris POC 13.9 11.9 - 15.5 g/dL [facility] Hematocrit, chris POC 41.0 35.6 - 45.5 % [facility] Sodium, chris POC 134(L) 135 - 145 mmol/L [facility] Potassium, chris POC 4.6 3.3 - 4.9 mmol/L [facility] Comment: Interpretive Data This method is not able to assess for hemolysis, which may falsely increase potassium concentrations. If further testing is needed to evaluate this result, consider in-laboratory plasma potassium. Current Interpretive Data was last revised on 2022. Glucose, chris POC 145 70 - 199 mg/dL NILSA Ionized Calcium, chris POC 4.70 4.50 - 5.10 mg/dL NILSA Blood 07/13/2024 10:1 2 AM WALL MAN 07/13/2024 10:12 AM WALL MAN Jaya Grier MD LAB POCT ORDERABLES - DEVICE Fin al Result Performing Organization Address [facility] Co de Phone Number [facility] [address] [facility] [address] [place] [address] * (ABNORMAL) Troponin T high-sensitivity 2-hour (07/12/2024 1:59 PM WALL MAN) Trop T hs 63(H) <=14 ng/L Comment: Interpretive Data For further hscTnT resources including the diagnostic algorithm and an aid in interpretation, copy and paste this link: https://nrl.testcatalog.org/show/hsTrop Current Interpretive Data last revised 2020. Testing performed by: [address] [address] Trop T hs delta -5 ng/L NILSA Comment:Testing performed by : [address] [address] Trop T hs interp Equivocal NILSA Comment:Testing performed by : [address] [address] Blood 07/12/2024 1:59 PM WALL MAN 07/12/2024 2:20 PM WALL MAN Donna CUEVA LAB BLOOD ORDERABLES Final Re sult Performing Organization Address City/[facility]/ZIP Co de Phone Number [facility] [address] [facility] Department [place] [address] * (ABNORMAL) Urinalysis reflex to microscopic and culture Urine (07/12/2024 1:05 PM WALL MAN) Color, ur Mikayla Yellow Comment:Testing performed by : [facility], [address] [place] [address]., [address] Clarity, ur Turbid(A) Clear NILSA Comment:Testing performed by : [facility], [address] [place] [address], [place]., [address] Specific gravity, ur 1.006 1.003 - 1.030 NILSA Comment:Testing performed by : [address], [place]., [address] pH, urine 6.0 NILSA Comment: Interpretive Data U rine pH is affected by diet, medications, systemic acid-base disturbances, and renal tubular function. pH may affect urinary stone formation. For example, urine pH below 6.0 may help reduce the tendency for calcium phosphate stones and pH greater than 6.0 may reduce the tendency for uric acid stone formation. Source: [facility] [address] Current Interpretive Data was last revised on 2017 Testing performed by: [address] [address] Protein, ur ql 2+(A) Negative NILSA Comment:Testing performed by : [address] [address] Glucose, ur ql 1+(A) Negative NILSA Comment:Testing performed by : [address] [address] Ketones, ur Negative Negative NILSA Comment:Testing performed by : [address] [address] Bilirubin, ur Negative Negative NILSA Comment:Testing performed by : [address] [address] Blood, ur 2+(A) Negative NILSA Comment:Testing performed by : [address] [address] Urobilinogen, ur <2.0 <2.0 mg/dL NILSA Comment:Testing performed by : [address], [place]., [address] Nitrite, ur Negative Negative NILSA Comment:Testing performed by : [address] [address] Leukocyte esterase, ur 4+(A) Negative CERNER MH Comment:Testing performed by : [facility], [address] [place] [address]., [address] UA reflex comment Reflex to microscopic UA will be performed. NILSA RODRIGES Comment:Testing performed by : [facility], [address] [place] [address]., [address] Urine 07/12/2024 1:05 PM WALL MAN 07/12/2024 1:09 PM WALL MAN Donna CUEVA LAB MICROBIOLOGY - GENERAL OR DERABLES Final Result NILSA [address] [facility] Department [place] [address] * Drugs of Abuse Screen, Urine without Confirmation (07/12/2024 1:05 PM WALL MAN) Amphetamine, ur Not Detected CutOff 500ng/mL Comment: Interpretive Data - Amphetamines: Samples containing greater than 500 ng/mL d-methamphetamine or other cross-reacting amphetamine compounds are reported as positive. Amphetamine immunoassays are subject to significant false positive rates due to cross-reactivity of non-amphetamine drugs. Confirmatory testing required for definitive results. Current Interpretive Data was last reviewed 2023. Testing performed by: [address] [address] Barbiturates, ur Not Detected CutOff 200ng/mL NILSA RODRIGES Comment: Interpretive Data - Barbiturates: Samples containing greater than 200 ng/mL secobarbital or other cross-reacting barbiturate compounds are reported as positive. False positive and false negative results are possible. Confirmatory testing required for definitive results. Current Interpretive Data was last reviewed 2023. Testing performed by: [address] [address] Benzodiazepines, ur Not Detected CutOff 100ng/mL NILSA RODRIGES Comment: Interpretive Data - Benzodiazepines: Samples containing greater than 100 ng/mL nordiazepam or other cross-reacting compounds are reported as positive. False positive and false negative results are possible. Confirmatory testing required for definitive results. Current Interpretive Data was last reviewed 2023. Testing performed by: [address] [place] [address] Cannabinoids, ur Not Detected CutOff 50 ng/mL [facility] Comment: Interpretive Data - Cannabinoids: Samples containing greater than 50 ng/mL delta-9 THC -COOH or other cross- reacting compounds are reported as positive. False positive and false negative results are possible. Confirmatory testing required for definitive results. Current Interpretive Data was last reviewed 2023. Testing performed by: [address] [address] Cocaine, ur Not Detected CutOff 150ng/mL [facility] Comment: Interpretive Data - Cocaine: Samples containing greater than 150 ng/mL benzoylecgonine or other cross- reacting compounds are reported as positive. False positive and false negative results are possible. Confirmatory testing required for definitive results. Current Interpretive Data was last reviewed 2023. Testing performed by: [address] [address] Fentanyl, Ur Not Detected Cutoff 1 ng/mL [facility] Comment: Interpretive Data - Fentanyl: Samples containing greater than 1 ng/mL fentanyl or other cross-reacting fentanyl compounds are reported as positive. False positive and false negative results are possible. Confirmatory testing required for definitive results. Current Interpretive Data was last reviewed 2023. Testing performed by: [address] [address] Methadone, ur Not Detected CutOff 300ng/mL [facility] Comment: Interpretive Data - Methadone: Samples containing greater than 300 ng/mL d,l-methadone or other cross-reacting compounds are reported as positive. False positive and false negative results are possible. Confirmatory testing required for definitive results. Current Interpretive Data was last reviewed 2023. Testing performed by: [address] [address] Opiates, ur Not Detected CutOff 300ng/mL [facility] Comment: Interpretive Data - Opiates: Samples containing greater than 300 ng/mL morphine or other cross-reacting compounds are reported as positive. False positive and false negative results are possible. Confirmatory testing required for definitive results. Current Interpretive Data was last reviewed 2023. Testing performed by: [address] [address] Oxycodone, ur Not Detected CutOff 100ng/mL NILSA Comment: Interpretive Data - Oxycodone: Samples containing greater than 100 ng/mL oxycodone or other cross-reacting compounds are reported as positive. False positive and false negative results are possible. Confirmatory testing required for definitive results. Current Interpretive Data was last reviewed 2023. Testing performed by: [address] [address] Phencyclidine, ur Not Detected CutOff 25 ng/mL NILSA Comment: Interpretive Data - Phencyclidine: Samples containing greater than 25 ng/mL phencyclidine or other cross-reacting compounds are reported as positive. False positive and false negative results are possible. Confirmatory testing required for definitive results. Current Interpretive Data was last reviewed 2023. Testing performed by: [address] [address] Urine Creatinine 74 mg/dL NILSA Comment: Interpretive Data Urine Creatinine: < 10 mg/dL is extremely dilute = or > 10 but < 20 mg/dL is dilute = or > 20 mg/dL is normal Current Interpretive Data was last revised on 2017. Testing performed by: [address] [address] Urine 07/12/2024 1:05 PM WALL MAN 07/12/2024 1:09 PM WALL MAN Narrative [facility] - 07/12/2024 1:31 PM WALL MAN Drug of Abuse screening is performed by immunoassay for medical purposes only. This is not to be used for Pain Management purposes. us Donna CUEVA LAB URINE ORDERABLES Final Re sult [facility] [address] [facility] Department [place] [address] * (ABNORMAL) Urinalysis, microscopic only (07/12/2024 1:05 PM WALL MAN) WBC, ur >50(A) 0 - 5 /HPF Comment:Testing performed by : [address] [address] RBC, ur 11-20(A) 0 - 2 /HPF NILSA RODRIGES Comment:Testing performed by : [facility], [address] [place] [address]., [address] Bacteria, ur 4+(A) NILSA RODRIGES Comment:Testing performed by : [facility], [address] [place] [address]., [address] Culture Reflex Comment Reflex to urine culture will be performed. NILSA Comment:Testing performed by : [facility], [address] [place] [address]., [address] Urine 07/12/2024 1:05 PM WALL MAN 07/12/2024 1:09 PM WALL MAN Donna CUEVA LAB URINE ORDERABLES Final Re sult NILSA RODRIGES [address] [facility] Department [place] [address] * (ABNORMAL) Urine culture Urine (07/12/2024 1:05 PM WALL MAN) Report Final Report: Greater than or equal to 100,000 colonies/mL of Escherichia coli (.) Comment:Testing performed by : [facility], [address] [place] [address] Organism ESCHERICHIA COLI NILSA Urine 07/12/2024 1:05 PM WALL MAN 07/12/2024 3:03 PM WALL MAN Narrative NILSA - 07/14/2024 2:20 PM WALL MAN Urine culture reflexed based upon urinalysis results. Testing performed by [facility] ([phone]) Organism Antibiotic Method Susceptibility Escherichia coli Ampicillin INTERPRETATION Susceptible Escherichia coli Cefazolin INTERPRETATION Susceptible Escherichia coli Nitrofurantoin INTERPRETATION Susceptible Escherichia coli Gentamicin INTERPRETATION Susceptible Escherichia coli Trimethoprim with Sulfamethoxazole IN TERPRETATION Susceptible Escherichia coli Meropenem INTERPRETATION Susceptible Escherichia coli Cefepime INTERPRETATION Susceptible Escherichia coli Ciprofloxacin INTERPRETATION Susceptible Escherichia coli Ceftazidime INTERPRETATION Susceptible Escherichia coli Ceftriaxone INTERPRETATION Susceptible Escherichia coli Piperacillin/Tazobactam INTERPRETATIO N Susceptible Escherichia coli Cephalexin INTERPRETATION Susceptible Escherichia coli Cefuroxime-axetil INTERPRETATION Susceptible Escherichia coli Cefdinir INTERPRETATION Susceptible Donna CUEVA LAB MICROBIOLOGY - GENERAL OR DERABLES Final Result Performing Organization Address City/[facility]/ZIP Co de Phone Number NILSA [address] Department [place] [address] * (ABNORMAL) Troponin T high-sensitivity series (baseline, 2hr, 4hr, 6hr) (07/12/2024 11:53 AM WALL MAN) Pathologist [facility] Trop T hs 68(H) <=14 ng/L Comment: REDRAW: HEMOLYZED SPECIMEN Interpretive Data For further hscTnT resources including the diagnostic algorithm and an aid in interpretation, copy and paste this link: https://nrl.testcatalog.org/show/hsTrop Current Interpretive Data last revised 2020. Testing performed by: [address] [address] Blood 07/12/2024 11:5 3 AM WALL MAN 07/12/2024 11:58 AM WALL MAN Donna CUEVA LAB BLOOD ORDERABLES Final Re sult Performing Organization Address City/[facility]/ZIP Co de Phone Number NILSA [address] Department [place] [address] * Influenza A/B, RSV, and COVID-19 PCR Nasopharyngeal (07/12/2024 11:53 AM WALL MAN) [facility] COVID-19 RNA Negative Negative Comment:Testing performed by : [address] [address] Influenza A RNA Negative Negative NILSA Comment:Testing performed by : [address] [address] Influenza B RNA Negative Negative NILSA Comment:Testing performed by : [address] [address] RSV RNA Negative Negative NILSA Comment: Interpretive data: Testing performed by [facility]. This test is performed using the [employer] Xpert Xpress CoV-2/Flu/RSV plus assay. This is a multiplex, real-time reverse transcriptase PCR assay intended for the qualitative detection of nucleic acid from SARS-CoV-2, influenza A, influenza B, and respiratory syncytial virus. This assay has been cleared by the [place] Food and Drug administration. The performance characteristics have been verified by the [facility]. Results must be considered in the clinical context, and a negative result does not rule out infection. Interpretive Data last revised 2023 Testing performed by: [facility], [address] [place] [address]., [address] Nasopharyngeal 07/12/2024 11 :53 AM WALL MAN 07/12/2024 11:58 AM WALL MAN Narrative NILSA - 07/12/2024 12:38 PM WALL MAN Is the Patient experiencing symptoms consistent with COVID?->Unknown Donna CUEVA LAB MICROBIOLOGY - GENERAL OR DERABLES Final Result NILSA [address] [facility] Department [place] [address] * (ABNORMAL) eGFR (07/12/2024 11:53 AM WALL MAN) eGFR 10(L) >=60 mL/min/1. 73 m2 Comment: Interpretive Data Reference Interval Normal >/= [...] was last reviewed 2021. Testing performed by: [facility], [address] [place] [address]., [address] Blood 07/12/2024 11:5 3 AM WALL MAN 07/12/2024 11:58 AM WALL MAN us Donna CUEVA LAB BLOOD ORDERABLES Final Re sult NILSA [address] [facility] Department [place] [address] * (ABNORMAL) Differential, auto (07/12/2024 11:53 AM WALL MAN) Neutrophil abs 9.2(H) 1.5 - 6.5 K/cumm Comment:Testing performed by : [address] [address] Imm gran abs 0.1 0.0 - 0.1 K/cumm NILSA Comment:Testing performed by : [address] [address] Lymphocyte abs 1.5 0.8 - 3.3 K/cumm NILSA Comment:Testing performed by : [address] [address] Monocyte abs 0.5 0.2 - 0.8 K/cumm NILSA Comment:Testing performed by : [address] [address] Eosinophil abs 0.1 0.0 - 0.5 K/cumm NILSA Comment:Testing performed by : [address] [address] Basophil abs 0.0 0.0 - 0.1 K/cumm NILSA Comment:Testing performed by : [address] [address] Neutrophil pct 81.0 % NILSA Comment: Interpretive Data Percent cell count reference ranges are not reported, since discordance with absolute values may lead to misinterpretation of CBC data. Current Interpretive Data was last revised on 2017. Testing performed by: [address] [address] Imm gran pct 0.4 % NILSA Comment: Interpretive Data Percent cell count reference ranges are not reported, since discordance with absolute values may lead to misinterpretation of CBC data. Current Interpretive Data was last revised on 2017. Testing performed by: [address] [address] Lymphocyte pct 13.4 % [facility] Comment: Interpretive Data Percent cell count reference ranges are not reported, since discordance with absolute values may lead to misinterpretation of CBC data. Current Interpretive Data was last revised on 2017. Testing performed by: [address] [address] Monocyte pct 4.2 % [facility] Comment: Interpretive Data Percent cell count reference ranges are not reported, since discordance with absolute values may lead to misinterpretation of CBC data. Current Interpretive Data was last revised on 2017. Testing performed by: [address] [address] Eosinophil pct 0.6 % [facility] Comment: Interpretive Data Percent cell count reference ranges are not reported, since discordance with absolute values may lead to misinterpretation of CBC data. Current Interpretive Data was last revised on 2017. Testing performed by: [address] [address] Basophil pct 0.4 % [facility] Comment: Interpretive Data Percent cell count reference ranges are not reported, since discordance with absolute values may lead to misinterpretation of CBC data. Current Interpretive Data was last revised on 2017. Testing performed by: [address] [address] Blood 07/12/2024 11:5 3 AM WALL MAN 07/12/2024 11:58 AM WALL MAN us Donna CUEVA LAB BLOOD ORDERABLES Final Re sult NILSA RODRIGES [address] [facility] Department [place] [address] * Thyroid Function [place] (07/12/2024 11:53 AM WALL MAN) TSH 1.22 0.30 - 4.20 mcIUnit/mL Comment:Testing performed by : [address] [address] Blood 07/12/2024 11:5 3 AM WALL MAN 07/12/2024 11:58 AM WALL MAN us Donna CUEVA LAB BLOOD ORDERABLES Final Re sult NILSA [address] [facility] Department [place] [address] * (ABNORMAL) CBC with auto differential (07/12/2024 11:53 AM WALL MAN) WBC 11.3(H) 3.8 - 9.9 K/cumm Comment:Testing performed by : [address] [address] Hgb 12.3 11.9 - 15.5 g/dL NILSA Comment:Testing performed by : [address] [address] Hct 37.2 35.6 - 45.5 % NILSA Comment:Testing performed by : [address] [address] Plt 230 150 - 400 K/cumm NILSA Comment:Testing performed by : [address] [address] MPV 10.7 9.1 - 12.3 fL NILSA RODRIGES Comment:Testing performed by : [address] [address] RBC 3.85(L) 3.90 - 5.20 M/cumm NILSA Comment:Testing performed by : [address] [address] MCV 96.6(H) 81.3 - 96.4 fL NILSA Comment:Testing performed by : [address] [address] MCH 31.9 27.1 - 33.3 pg NILSA RODRIGES Comment:Testing performed by : [address] [address] MCHC 33.1 32.3 - 35.7 g/dL NILSA RODRIGES Comment:Testing performed by : [address] [address] RDW CV 15.7(H) 11.1 - 14.9 % NILSA RODRIGES Comment:Testing performed by : [address] [address] RDW SD 55.5(H) 35.7 - 48.1 fL NILSA RODRIGES Comment:Testing performed by : [address] [address] NRBC abs 0.00 0.00 - 0.01 K/cumm NILSA RODRIGES Comment:Testing performed by : [address] [address] Blood 07/12/2024 11:5 3 AM WALL MAN 07/12/2024 11:58 AM WALL MAN us Donna CUEVA LAB BLOOD ORDERABLES Final Re sult NILSA RODRIGES [address] [place] [address] Department [place] [address] * (ABNORMAL) Comprehensive metabolic panel (07/12/2024 11:53 AM WALL MAN) Sodium 134(L) 135 - 145 mmol/L Comment:Testing performed by : [address] [address] Potassium, pl 4.6 3.3 - 4.9 mmol/L NILSA RODRIGES Comment: HEMOLYZED: Hemolysis interferes with the above test. Testing performed by: [address] [address] Chloride 93(L) 97 - 110 mmol/L NILSA RODRIGES Comment:Testing performed by : [address] [address] CO2 28 22 - 32 mmol/L NILSA RODRIGES Comment:Testing performed by : [address] [address] Anion gap 13 2 - 15 mmol/L NILSA RODRIGES Comment:Testing performed by : [address] [address] BUN 33(H) 6 - 25 mg/dL NILSA Comment:Testing performed by : [address] [address] Creatinine 4.60(H) 0.60 - 1.10 mg/dL [facility] Comment:Testing performed by : [address] [address] Glucose 177 70 - 199 mg/dL [facility] Comment: Interpretive Data Fasting glucose >/= 126 [...] was last revised 2022. Testing performed by: [address] [address] Calcium 9.5 8.5 - 10.3 mg/dL [facility] Comment:Testing performed by : [address] [address] Bilirubin, total 0.4 0.1 - 1.2 mg/dL [facility] Comment:Testing performed by : [address] [address] Protein, pl 8.2 6.5 - 8.5 g/dL [facility] Comment:Testing performed by : [address] [address] Albumin 3.9 3.5 - 5.0 g/dL [facility] Comment:Testing performed by : [address] [address] Alk phos 95 40 - 130 Units/L [facility] Comment:Testing performed by : [address] [address] ALT 24 7 - 45 Units/L [facility] Comment: HEMOLYZED: Hemolysis interferes with the above test. Testing performed by: [address] [address] AST 26 10 - 45 Units/L NILSA RODRIGES Comment: HEMOLYZED: Hemolysis interferes with the above test. Testing performed by: [facility], [address] [place] [address], [place]., [address] Blood 07/12/2024 11:5 3 AM WALL MAN 07/12/2024 11:58 AM WALL MAN Donna CUEVA LAB BLOOD ORDERABLES Final Re sult NILSA [address] [facility] Department [place] [address] * ECG 12 lead (07/12/2024 11:48 AM WALL MAN) Ventricular Rate EKG/Min 77 BPM [facility] Atrial Rate 77 BPM [facility] MI-Interval (MSEC) 154 ms [facility] QRS-Interval (MSEC) 66 ms [facility] QT-Interval (MSEC) 412 ms [facility] QTc 466 ms [facility] P [place] 72 degrees [facility] R [place] 6 degrees [facility] T [place] 62 degrees [facility] Diagnosis Normal sinus rhythm Normal ECG When compared with ECG of 21-APR-2024 10:35, No significant change was found Confirmed by DIAMOND GUTIERREZ M.D. ([id number]) on 07/13/2024 9:26:23 PM [facility] 07/12/2024 11:4 8 AM WALL MAN 07/13/2024 9:26 PM WALL MAN Donna CUEVA ECG ORDERABLES Final Result Performing Organization Address [facility]/ZIP Co de Phone Number [facility] [employer] [facility] * CT Cervical Spine WO Contrast (07/12/2024 10:38 AM WALL MAN) Anatomical Region Laterality Modality Spine N/A Computed Tomogra phy 07/12/2024 11:0 8 AM WALL MAN Narrative 07/12/2024 11:13 AM WALL MAN EXAM DESCRIPTION: CT CERVICAL SPINE WO CONTRAST REASON FOR STUDY: Neck trauma (Age >= 65y) Pt presents to ED accompanied by Daughter. Daughter reports she was going to take pt to dialysis this morning and ground was uneven outside and pt tripped and fell onto her face. Pt has noted abrasions to the right side of her face. Daughter reports pt c/o of bilateral shoulder pain this am. Pt denies any c/o at this time. Pt A-3 at baseline per daughter. Daughter states pt is not on any blood thinners. TECHNIQUE: Axial images through the cervical spine with sagittal and coronal reformatted images. Automated exposure control was used as a dose optimization technique for this examination. COMPARISON: 04/06/2024 plain radiographs FINDINGS: ALIGNMENT: Normal. VERTEBRAE: No fracture. Vertebral body heights well-maintained. DISCS: Diffuse severe degenerative change with loss of height, sclerosis, spur formation and facet hypertrophic change. HARDWARE: None in the spine. INDIVIDUAL DISC LEVELS: No significant osseous spinal canal stenosis. Right-sided neural foramina demonstrate diffuse neural foraminal narrowing related to bony sclerosis and spur formation. Left-sided neural foramina also demonstrate diffuse bony narrowing. UPPER THORACIC: Incompletely imaged. No significant osseous spinal stenosis or osseous neural foraminal stenosis. SKULL BASE: No significant finding. LUNG APICES: No significant abnormality. NECK SOFT TISSUES: No significant abnormality. OTHER: No other significant findings. IMPRESSION: No acute C-spine abnormality. Severe degenerative changes. THIS IS AN ELECTRONICALLY VERIFIED FINAL REPORT 07/12/2024 11:13 AM - Electronically signed by Wally Hernandez M.D. RB: AMADA Report ID: [id number] Reading Location: [id number] Procedure Note Wally Hernandez MD - 07/12/2024 EXAM DESCRIPTION: CT CERVICAL SPINE WO CONTRAST REASON FOR STUDY: Neck trauma (Age >= 65y) Pt presents to ED accompanied by Daughter. Daughter reports she wasgoing to take pt to dialysis this morning and ground was uneven outside and pttripped and fell onto her face. Pt has noted abrasions to the right side of herface. Daughter reports pt c/o of bilateral shoulder pain this am. Pt deniesany c/o at this time. Pt A-3 at baseline per daughter. Daughter states pt isnot on any blood thinners. TECHNIQUE: Axial images through the cervical spine with sagittal andcoronal reformatted images. Automated exposure control was used as a doseoptimization technique for this examination. COMPARISON: 04/06/2024 plain radiographs FINDINGS: ALIGNMENT: Normal. VERTEBRAE: No fracture. Vertebral body heights well-maintained. DISCS: Diffuse severe degenerative change with loss of height,sclerosis, spur formation and facet hypertrophic change. HARDWARE: None in the spine. INDIVIDUAL DISC LEVELS: No significant osseous spinal canal stenosis. Right-sided neural foramina demonstrate diffuse neural foraminal narrowing related to bony sclerosis and spur formation. Left-sided neural foramina also demonstrate diffuse bony narrowing. UPPER THORACIC: Incompletely imaged. No significant osseous spinalstenosis or osseous neural foraminal stenosis. SKULL BASE: No significant finding. LUNG APICES: No significant abnormality. NECK SOFT TISSUES: No significant abnormality. OTHER: No other significant findings. IMPRESSION: No acute C-spine abnormality. Severe degenerative changes. THIS IS AN ELECTRONICALLY VERIFIED FINAL REPORT 07/12/2024 11:13 AM - Electronically signed by Wally Hernandez M.D. RB: AMADA Report ID: [id number] Reading Location: [place] [address] Donna CUEVA [facility] PROCEDURES Final Resul t * CT Facial Bones WO Contrast (07/12/2024 10:38 AM WALL MAN) Anatomical Region Laterality Modality Head and Neck N/A Computed Tomogra phy 07/12/2024 11:0 3 AM WALL MAN Narrative 07/12/2024 11:08 AM WALL MAN EXAM DESCRIPTION: CT FACIAL BONES WO CONTRAST REASON FOR STUDY: Facial trauma, blunt Pt presents to ED accompanied by Daughter. Daughter reports she was going to take pt to dialysis this morning and ground was uneven outside and pt tripped and fell onto her face. Pt has noted abrasions to the right side of her face. Daughter reports pt c/o of bilateral shoulder pain this am. Pt denies any c/o at this time. Pt A-3 at baseline per daughter. Daughter states pt is not on any blood thinners. TECHNIQUE: Noncontrast computed tomography images through the paranasal sinuses. Reconstructed MPR images reviewed. All images stored on PACS. Automated exposure control was used as a dose optimization technique for this examination. COMPARISON: 07/12/2024 CT head FINDINGS: BONES: No fracture or bone lesion. SOFT TISSUES: No abscess. No inflammatory changes. SINUSES: No mucosal thickening or fluid. No mass. NASAL CAVITY: Midline nasal septum. ORBITS: No significant abnormalities visualized. TMJ: Normal. MASTOIDS: Well-aerated. IACs symmetric, grossly normal. BRAIN: Limited view. No acute findings. OTHER: No other significant finding. IMPRESSION: Normal maxillofacial CT. THIS IS AN ELECTRONICALLY VERIFIED FINAL REPORT 07/12/2024 11:08 AM - Electronically signed by Wally Hernandez M.D. RB: AMADA Report ID: [id number] Reading Location: [place] [address] Procedure Note Wally Hernandez MD - 07/12/2024 EXAM DESCRIPTION: CT FACIAL BONES WO CONTRAST REASON FOR STUDY: Facial trauma, blunt Pt presents to ED accompanied by Daughter. Daughter reports she wasgoing to take pt to dialysis this morning and ground was uneven outside and pttripped and fell onto her face. Pt has noted abrasions to the right side of herface. Daughter reports pt c/o of bilateral shoulder pain this am. Pt deniesany c/o at this time. Pt A-3 at baseline per daughter. Daughter states pt isnot on any blood thinners. TECHNIQUE: Noncontrast computed tomography images through the paranasal sinuses. Reconstructed MPR images reviewed. All images stored on PACS. Automated exposure control was used as a dose optimization technique forthis examination. COMPARISON: 07/12/2024 CT head FINDINGS: BONES: No fracture or bone lesion. SOFT TISSUES: No abscess. No inflammatory changes. SINUSES: No mucosal thickening or fluid. No mass. NASAL CAVITY: Midline nasal septum. ORBITS: No significant abnormalities visualized. TMJ: Normal. MASTOIDS: Well-aerated. IACs symmetric, grossly normal. BRAIN: Limited view. No acute findings. OTHER: No other significant finding. IMPRESSION: Normal maxillofacial CT. THIS IS AN ELECTRONICALLY VERIFIED FINAL REPORT 07/12/2024 11:08 AM - Electronically signed by Wally Hernandez M.D. RB: AMADA Report ID: [id number] Reading Location: [id number] us Donna CUEVA IMG CT PROCEDURES Final Resul t * CT Head WO Contrast (07/12/2024 10:38 AM WALL MAN) Anatomical Region Laterality Modality Head and Neck N/A Computed Tomogra phy 07/12/2024 10:5 9 AM WALL MAN Narrative 07/12/2024 11:03 AM WALL MAN EXAM DESCRIPTION: CT HEAD WO CONTRAST REASON FOR STUDY: Facial trauma, blunt Pt presents to ED accompanied by Daughter. Daughter reports she was going to take pt to dialysis this morning and ground was uneven outside and pt tripped and fell onto her face. Pt has noted abrasions to the right side of her face. Daughter reports pt c/o of bilateral shoulder pain this am. Pt denies any c/o at this time. Pt A-3 at baseline per daughter. Daughter states pt is not on any blood thinners. TECHNIQUE: Axial images acquired through the brain without intravenous contrast. Images stored on PACS. Automated exposure control was used as a dose optimization technique for this examination. COMPARISON: 04/21/2024 FINDINGS: BRAIN: No hemorrhage, edema or mass effect. No recent infarct. Normal white matter. 1 cm hypodensity right thalamus unchanged from previous suggesting old infarct. EXTRA-AXIAL SPACES: No fluid collections. No masses. CALVARIUM: No fracture. SINUSES/MASTOIDS: No fluid or mucosal thickening. ORBITS: No significant abnormality. OTHER: Induration subcutaneous tissues over the right-side of the frontal bone suggesting contusion. No radiopaque foreign body, underlying bony or intracranial abnormality. IMPRESSION: No acute intracranial findings. THIS IS AN ELECTRONICALLY VERIFIED FINAL REPORT 07/12/2024 11:03 AM - Electronically signed by Wally Hernandez M.D. RB: AMADA Report ID: [id number] Reading Location: [id number] Procedure Note Wally Hernandez MD - 07/12/2024 EXAM DESCRIPTION: CT HEAD WO CONTRAST REASON FOR STUDY: Facial trauma, blunt Pt presents to ED accompanied by Daughter. Daughter reports she wasgoing to take pt to dialysis this morning and ground was uneven outside and pttripped and fell onto her face. Pt has noted abrasions to the right side of herface. Daughter reports pt c/o of bilateral shoulder pain this am. Pt deniesany c/o at this time. Pt A-3 at baseline per daughter. Daughter states pt isnot on any blood thinners. TECHNIQUE: Axial images acquired through the brain without intravenous contrast. Images stored on PACS. Automated exposure control was used asa dose optimization technique for this examination. COMPARISON: 04/21/2024 FINDINGS: BRAIN: No hemorrhage, edema or mass effect. No recent infarct. Normal white matter. 1 cm hypodensity right thalamus unchanged from previous suggesting old infarct. EXTRA-AXIAL SPACES: No fluid collections. No masses. CALVARIUM: No fracture. SINUSES/MASTOIDS: No fluid or mucosal thickening. ORBITS: No significant abnormality. OTHER: Induration subcutaneous tissues over the right-side of thefrontal bone suggesting contusion. No radiopaque foreign body, underlying bony or intracranial abnormality. IMPRESSION: No acute intracranial findings. THIS IS AN ELECTRONICALLY VERIFIED FINAL REPORT 07/12/2024 11:03 AM - Electronically signed by Wally Hernandez M.D. RB: AMADA Report ID: [id number] Reading Location: [id number] Donna CUEVA IMG CT PROCEDURES Final Resul t * XR Shoulder Right 2 or More Views (07/12/2024 10:08 AM WALL MAN) Anatomical Region Laterality Modality Upper Extremities, Shoulder Right Comp uted Radiography 07/12/2024 10:1 4 AM WALL MAN Narrative 07/12/2024 10:15 AM WALL MAN EXAM DESCRIPTION: XR SHOULDER RIGHT 2 OR MORE VIEWS REASON FOR STUDY: Pain, Upper Extremity Injury or Trauma Bilateral shoulder pain s/p fall today. Best images obtained due to patient's alert and oriented status at this time TECHNIQUE: Four views COMPARISON: None available FINDINGS: No acute fracture or dislocation. No lytic or destructive process. Severe degenerative change undersurface of the acromion adjacent humeral head greater tuberosity with sclerosis and spur formation. Moderate changes AC joint and bony glenoid. Superior subluxation of humeral head likely related to severe rotator cuff disease. Adjacent ribs and lung apex unremarkable. IMPRESSION: Severe degenerative changes right shoulder without acute findings. THIS IS AN ELECTRONICALLY VERIFIED FINAL REPORT 07/12/2024 10:15 AM - Electronically signed by Wally Hernandez M.D. RB: AMADA Report ID: [id number] Reading Location: [id number] Procedure Note Wally Hernandez MD - 07/12/2024 EXAM DESCRIPTION: XR SHOULDER RIGHT 2 OR MORE VIEWS REASON FOR STUDY: Pain, Upper Extremity Injury or Trauma Bilateral shoulder pain s/p fall today. Best images obtained due topatient's alert and oriented status at this time TECHNIQUE: Four views COMPARISON: None available FINDINGS: No acute fracture or dislocation. No lytic or destructive process. Severe degenerative change undersurface of the acromion adjacent humeralhead greater tuberosity with sclerosis and spur formation. Moderate changes AC joint and bony glenoid. Superior subluxation of humeral head likely related to severe rotator cuff disease. Adjacent ribs and lung apex unremarkable. IMPRESSION: Severe degenerative changes right shoulder without acutefindings. THIS IS AN ELECTRONICALLY VERIFIED FINAL REPORT 07/12/2024 10:15 AM - Electronically signed by Wally Hernandez M.D. RB: AMADA Report ID: [id number] Reading Location: [id number] Julio Landeros DO IMG XR PROCEDURES Final Result * XR Shoulder Left 2 or More Views (07/12/2024 10:08 AM WALL MAN) Anatomical Region Laterality Modality Upper Extremities, Shoulder Left Comp uted Radiography 07/12/2024 10:1 3 AM WALL MAN Narrative 07/12/2024 10:14 AM WALL MAN EXAM DESCRIPTION: XR SHOULDER LEFT 2 OR MORE VIEWS REASON FOR STUDY: Pain, Upper Extremity Injury or Trauma Bilateral shoulder pain s/p fall today. Best images obtained due to patient's alert and oriented status at this time TECHNIQUE: Four views COMPARISON: 01/31/2024 FINDINGS: No acute fracture or dislocation. No lytic or destructive process. Severe degenerative change undersurface of the acromion, humeral head near the greater tuberosity. Additional severe changes bony glenoid. Superior subluxation of humeral head to the undersurface of the acromion suggesting rotator cuff disease. Adjacent ribs and lung apex unremarkable. IMPRESSION: Severe degenerative changes left shoulder with evidence of rotator cuff disease. Progressed from previous. THIS IS AN ELECTRONICALLY VERIFIED FINAL REPORT 07/12/2024 10:14 AM - Electronically signed by Wally Hernandez M.D. RB: AMADA Report ID: [id number] Reading Location: [id number] Procedure Note Wally Hernandez MD - 07/12/2024 EXAM DESCRIPTION: XR SHOULDER LEFT 2 OR MORE VIEWS REASON FOR STUDY: Pain, Upper Extremity Injury or Trauma Bilateral shoulder pain s/p fall today. Best images obtained due topatient's alert and oriented status at this time TECHNIQUE: Four views COMPARISON: 01/31/2024 FINDINGS: No acute fracture or dislocation. No lytic or destructive process. Severe degenerative change undersurface of the acromion, humeral head nearthe greater tuberosity. Additional severe changes bony glenoid. Superior subluxation of humeral head to the undersurface of the acromion suggesting rotator cuff disease. Adjacent ribs and lung apex unremarkable. IMPRESSION: Severe degenerative changes left shoulder with evidence ofrotator cuff disease. Progressed from previous. THIS IS AN ELECTRONICALLY VERIFIED FINAL REPORT 07/12/2024 10:14 AM - Electronically signed by Wally Hernandez M.D. RB: AMADA Report ID: [id number] Reading Location: [id number] Julio Landeros DO IMG XR PROCEDURES Final Result * POCT glucose (07/12/2024 9:33 AM WALL MAN) Glucose, POC 164 70 - 199 mg/dL Comment:Testing performed by : [address] [address] Glucose comment 1 Use This Result NILSA Comment:Testing performed by : [address] [address] Blood 07/12/2024 9:33 AM WALL MAN 07/12/2024 9:33 AM WALL MAN Notinfile Unknown LAB POCT ORDERABLES - DEVICE F inal Result NILSA [address] [facility] Department of Laboratories [place], [place] [id number] * Lipid panel (05/16/2024 10:14 AM WALL MAN) Cholesterol 160 30 - 199 mg/dL Comment: [...] on 2018. Triglycerides 122 <=149 mg/dL NILSA [facility] Comment: Interpretive Data Ages < or = [...] Borderline high: 130-159 mg/dL High: >160 mg/dL Calculated using the Sanket LDL-C estimating equation. This equation was implemented on 2024. Prior to this date LDL-C was estimated using the Friedewald equation. Literature References: 1. Expert Panel on Integrated Guidelines for Cardiovascular Health and Risk Reduction in Children and Adolescents. Pediatrics 2011;128:S213 2. NCEP Expert Panel. Circulation 2004;110:227 3. Sanket Hamlin al. SAVITA Cardiol. 2020 October 20;5(5):540-548. doi: 10.1001/jamacardio.2020.0013 Current Interpretive Data was last revised on 2024. Non-HDL Cholesterol 111 mg/dL NILSA DIAS Comment: Interpretive Data Ages < or = 19 years Acceptable: <120 mg/dL Borderline high: 120-144 mg/dL High: >145 mg/dL Ages > or = 20 years When triglycerides are >200 mg/dL, Non-HDL cholesterol is a secondary target of therapy with treatment goals that are 30 mg/dL greater than the LDL cholesterol target. Literature References: 1. Expert Panel on Integrated Guidelines for Cardiovascular Health and Risk Reduction in Children and Adolescents. Pediatrics 2011;128:S213 2. NCEP Expert Panel. Circulation 2004;110:227 Current Interpretive Data was last revised on 2018. Chol/HDL ratio 3 NILSA DIAS Blood 05/16/2024 10:1 4 AM WALL MAN 05/16/2024 10:50 AM WALL MAN Narrative NILSA LARISSA - 05/16/2024 11:23 AM WALL MAN These lab test should be done fasting. This means do not eat or drink for at least 12 hours prior to getting your blood drawn. us Smith Gibbs MD LAB BLOOD ORDERABLES Final R esult [facility] [address] [facility]. Department [place] [address] * Colonoscopy (03/01/2024 8:49 AM CDT) Anatomical Region Laterality Modality Other Narrative Procedure Note Jaya Grier MD - 03/01/2024 8:49 AM CDT [facility] GI ENDOSCOPY Patient Name: Sixto Chakraborty Procedure Date: 03/01/2024 8:49 AM Date of : 1950 Admit Type: Outpatient Age: 73 Gender: Female Attending MD: Jaya Grier M.D. Room: [facility] ENDOSCOPY ROOM 06 Note Status: Finalized [...] The scope was passed under direct vision.The [id number] colonoscope was introduced through theanus and advanced [...] On: 03/01/2024 8:49 AM Recognized by the [employer] for promoting quality [...] taking vitamin-D. History of end-stage renal disease. 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 TW: TW Report ID: [id number] Reading Location: [id number] Procedure Note Rafaela Paulino MD - 01/22/2024 EXAM DESCRIPTION: DEXA AXIAL SKELETON BONE DENSITY 1 OR MORE SITES REASON FOR STUDY: 73 y/o year old F with given history of: Post menopausal status. History of taking vitamin-D. History of end-stagerenal disease. 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 [facility] causes of low bone mineral density may [...] Rafaela Paulino M.D. TW: TW Report ID: [id number] Reading Location: [id number] us Cherelle Crocoran MD IMG DXA PROCEDURE S Final Result * Screening Mammogram Bilateral W Stalin (01/22/2024 12:21 PM CDT) Anatomical Region Laterality Modality Breast Bilateral Mammography Impressions 01/22/2024 12:30 PM CDT BI-RADS ATLAS category (overall): 2 - Benign There [...] in accordance with current CDC screening recommendations. Reactive: Positive for HCV antibodies. This may represent current or past HCV infection. Supplemental molecular testing will be automatically performed to determine current infection status in accordance with current CDC screening recommendations. Interpretive data was last revised on 2019. HepBsAg Nonreactive Nonreactive NILSA Blood 10/15/2023 6:50 AM CDT 10/15/2023 7:07 AM CDT Jimbo Strauss MD LAB MICROBIOLOGY - GENERAL FREDDY HALEY Final Result NILSA [address] Department [place] [address] * (ABNORMAL) Albumin Creatinine Ratio, Urine (10/10/2022 11:39 AM CDT) Albumin Ur 3,240.2 mg/L NILSA Comment: Interpretive Data No reference range established. Current interpretive data was last revised 2018. Testing performed by: [address] [address] Creatinine Ur 74.8 mg/dL NILSA Comment: Interpretive Data No reference range established. Current interpretive data was last revised 2018. Testing performed by: [facility], [address] [place] [address]., [address] Albumin Creatinine Ratio, Ur 4,332(H) 1 - 29 mg/g NILSA Comment:Testing performed by : [facility], [address] [place] [address]., [address] Urine 10/10/2022 11:3 9 AM CDT 10/10/2022 1:45 PM CDT us Markie Ryan MD LAB URINE ORDERABLES Final Re sult Performing Organization Address City/State/[facility] Co de Phone Number NILSA [address] [facility] Department [place] [address] from Last 3 Months or Most Recently Relevant to Health Maintenance Insurance MEDICARE MEDICARE [place] MEDICARE [facility] MEDICARE [place] Advance Directives For more information, please contact: [phone] Documents on File Type Date Recorded 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 ADVANCE DIRECTIVE 07/15/2024 7:58 AM Power of Vocational Rehabilitation Counselor-Medical ADVANCE DIRECTIVE 02/02/2024 12:34 PM Erik r of Vocational Rehabilitation Counselor-Medical * Full Code (Latest Code Status on [...] Gayle Daughter Health Care Agent Care Teams Distance Education Teacher Relationship Specialty Start Date End Date Cherelle Corcoran MD PCP - General Family Medicine 08/30/19 Mark Queen MD Consulting Physician Infectious Diseases 01/10/20 Rudolph Welch MD [address] [facility] [address] [place] [address] Consulting Physician Infectious Diseases 12/05/22 Markie Ryan MD [address] [facility] [address] [place] [address] Consulting Physician Nephrology 12/05/22 [place] [address] [address] Consulting Physician Nephrology 10/22/23 Jaya Grier MD [address] [facility] [address] [place] [address] Consulting Physician Gastroenterology 02/01/24 Edgardo Kauffman MD [address] [facility] [address] [place] [address] Surgeon Vascular Surgery 07/15/24
--- OUTSIDE RECORDS SUMMARY | 2024-09-07 10:07 | XMS_ITS ---
Author Organization [facility] Care Team Providers Care Supervisor [employer] Name Role Phone Brittney Hutchins Unavailable Unavailable Nick Whitley Unavailable Unavailable Ampadu, Demetri Unavailable Unavailable Kj Newberry Unavailable Unavailable Allergies and adverse reactions No Known Allergies Care Team Name Role Address Phone Organization Dates Demetri Ampadu PCP [address] [place], [address], [place] (Office): : [facility] 08/22/2021 - 09/04/2021 Brittney Hutchins Attending Physician [address] [facility] [address], [place], [address], [place] (Office): : [facility] 08/22/2021 - 09/04/2021 Nick Whitley Attending Physician [address] [place], [address], [place] (Office): : [facility] 08/22/2021 - 09/04/2021 Kj Newberry Attending Physician [place] (Office): : : [facility] 08/22/2021 - 09/04/2021 Mental Status Section Date Assessment Total Score Description 09/04/2021 CAM 0 No delirium ind icated 08/29/2021 BIMS 12 moderate cognit amanda impairment CAM 0 No delirium ind icated PHQ-9 05 mild depression Problems Problem # Description Date of onset Resolved Date Code CodeSystem Concern Status 1 ANEMIA, UNSPECIFIED 08/22/[address] active 2 CHRONIC KIDNEY DISEASE, UNSPECIFIED 08/22/[address] active 3 ESSENTIAL (PRIMARY) HYPERTENSION 08/22/[address] active 4 HISTORY OF FALLING 08/22/[address] active 5 HYPERLIPIDEMIA, UNSPECIFIED 08/22/[address] active 6 RETENTION OF URINE, UNSPECIFIED 08/22/[address] active 7 SCHIZOPHRENIA, UNSPECIFIED 08/22/[address] active 8 TYPE 2 DIABETES MELLITUS WITH DIABETIC NEUROPATHY, UNSPECIFIED 08/22/[address] active 9 TYPE 2 DIABETES MELLITUS WITHOUT COMPLICATIONS 08/22/[address] active 10 UNSPECIFIED DEMENTIA, UNSPECIFIED SEVERITY, WITHOUT BEHAVIORAL DISTURBANCE, PSYCHOTIC DISTURBANCE, MOOD DISTURBANCE, AND ANXIETY 08/22/[address] active 11 UNSPECIFIED OSTEOARTHRITIS, UNSPECIFIED SITE 08/22/[address] active 12 UNSTEADINESS ON FEET 08/22/[address] active 13 WEAKNESS 08/22/[address] active Reason for Referral No Reasons for Referral Entered Social History Social History Observation Description Start Date End Date Code Code System Current Smoking Status Tobacco smoking consumption unknown 624448569 SNOMED CT Sex Assigned At Female 1950 [address]-3 [facility] Vital Signs Code Code System Vitals Name Values and Units Timing Information 2339-0 [facility] Blood Sugar Value=1.0 Units=mg/dL 9279-1 [facility] Respiratory Rate Value=18.0 Units=/m in 09/04/2021 79177-1 [facility] O2 % BldC Oximetry Value=97.0 Units= % 09/04/2021 8462-4 [facility] Blood Pressure-Diastolic Value=78 Un its=mmHg 09/04/2021 8480-6 [facility] Blood Pressure-Systolic Olmlv=106 Un its=mmHg 09/04/2021 8310-5 [facility] Body Temperature Value=98.9 Units= F 09/04/2021 8867-4 [facility] Heart rate Value=70.0 Units=/min 41438-4 [facility] Pain Level Value=0.0 09/04/2021 04483-3 [facility] Weight Ubvmz=617.0 Units=Lbs 12/2021
--- OUTSIDE RECORDS SUMMARY | 2024-09-07 10:07 | XMS_ITS ---
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 08/22/2021 - 09/04/2021 Brittney Hutchins Attending Physician [address], [place], [address], [place] (Office): : [facility] 08/22/2021 - 09/04/2021 Nick Whitley Attending Physician [address] [facility], [place], [address], [place] (Office): : [facility] 08/22/2021 - 09/04/2021 Kj Newberry Attending Physician [place] (Office): : : [employer] [facility] 08/22/2021 - 09/04/2021 Mental Status Section Date Assessment Total Score Description 09/04/2021 CAM 0 No delirium ind icated 08/29/2021 BIMS 12 moderate cognit amanda impairment CAM 0 No delirium ind icated PHQ-9 05 mild depression Problems Problem # Description Date of onset Resolved Date Code CodeSystem Concern Status 1 ANEMIA, UNSPECIFIED 08/22/[address] active 2 CHRONIC KIDNEY DISEASE, UNSPECIFIED 08/22/[address] active 3 ESSENTIAL (PRIMARY) HYPERTENSION 08/22/[address] active 4 HISTORY OF FALLING 08/22/[address] active 5 HYPERLIPIDEMIA, UNSPECIFIED 08/22/[address] active 6 RETENTION OF URINE, UNSPECIFIED 08/22/[address] active 7 SCHIZOPHRENIA, UNSPECIFIED 08/22/[address] active 8 TYPE 2 DIABETES MELLITUS WITH DIABETIC NEUROPATHY, UNSPECIFIED 08/22/[address] active 9 TYPE 2 DIABETES MELLITUS WITHOUT COMPLICATIONS 08/22/[address] active 10 UNSPECIFIED DEMENTIA, UNSPECIFIED SEVERITY, WITHOUT BEHAVIORAL DISTURBANCE, PSYCHOTIC DISTURBANCE, MOOD DISTURBANCE, AND ANXIETY 08/22/[address] active 11 UNSPECIFIED OSTEOARTHRITIS, UNSPECIFIED SITE 08/22/[address] active 12 UNSTEADINESS ON FEET 08/22/[address] active 13 WEAKNESS 08/22/[address] active Reason for Referral No Reasons for Referral Entered Social History Social History Observation Description Start Date End Date Code Code System Current Smoking Status Tobacco smoking consumption unknown 943811434 SNOMED CT Sex Assigned At Female 1950 [address]-0 [facility] Vital Signs Code Code System Vitals Name Values and Units Timing Information 2339-0 [facility] Blood Sugar Value=1.0 Units=mg/dL 9279-1 [facility] Respiratory Rate Value=18.0 Units=/m in 09/04/2021 62195-1 [facility] O2 % BldC Oximetry Value=97.0 Units= % 09/04/2021 8462-4 [facility] Blood Pressure-Diastolic Value=78 Un its=mmHg 09/04/2021 8480-6 [facility] Blood Pressure-Systolic Yhhpt=507 Un its=mmHg 09/04/2021 8310-5 [facility] Body Temperature Value=98.9 Units= F 09/04/2021 8867-4 [facility] Heart rate Value=70.0 Units=/min 21777-3 [facility] Pain Level Value=0.0 09/04/2021 17760-3 [facility] Weight Aphcz=485.0 Units=Lbs 12/2021
--- OUTSIDE RECORDS SUMMARY | 2024-09-07 10:07 | XMS_ITS ---
Author Organization [facility] Address [address] [place] [address] Care Team Providers Care Sock Liner Name Role Phone Cherelle Corcoran MD Primary Care Pro vider Mark Queen MD Unavailable [phone] Rudolph Welch MD Unavailable Markie Ryan MD Unavailable Jimbo Strauss MD Unavailable [phone] Jaya Grier MD Unavailable Edgardo Kauffman MD Unavailable Dialysis Access Sites Type Status Location Placement Date Removal Da te Hemodialysis Cath Double 10/15/23 Tunneled catheter Right Internal Jugular Active Right Neck (side) - Anterior 10/15/2023 Procedures Procedure Name Priority Date/Time Associated Diagnosis Comments POCT HEMOGLOBIN A1C Routine 08/22/2024 8:55 AM DATA GOVERNANCE ANALYST Type 2 diabetes mellitus with diabetic nephropathy, with long-term current use of insulin (HCC) RESPIRATORY PATHOGEN PANEL STAT 07/31 1:02 PM DATA GOVERNANCE ANALYST DIABETIC EYE EXAM Routine 07/27/2024 12:37 PM DATA GOVERNANCE ANALYST DIABETES EYE EXAM Routine 07/22/2024 XR CHEST 1 VIEW ED Urgent/IP Urgent 07/15/2024 1:11 PM DATA GOVERNANCE ANALYST RPL DRE CVC W/O PUMP [id number] Routine 07/15 12:40 PM DATA GOVERNANCE ANALYST ESRD (end stage renal disease) on dialysis (HCC) XR CHEST 1 VIEW ED Urgent/IP Urgent 07/14/2024 1:16 PM DATA GOVERNANCE ANALYST EGFR STAT 07/14/2024 12:34 PM DATA GOVERNANCE ANALYST DIFFERENTIAL AUTO STAT 07/14/2024 12:34 PM DATA GOVERNANCE ANALYST BASIC METABOLIC PANEL STAT 07/14/2024 12:34 PM DATA GOVERNANCE ANALYST CBC WITH AUTO DIFFERENTIAL STAT 07/14 12:34 PM DATA GOVERNANCE ANALYST SURGICAL PATHOLOGY Routine 07/13/2024 11:10 AM DATA GOVERNANCE ANALYST Anemia, unspecified type Gastritis without bleeding, unspecified chronicity, unspecified gastritis type ESOPHAGOGASTRODUODENOSCOPY BIOPSY 07/13/2024 11:03 AM DATA GOVERNANCE ANALYST Anemia, unspecified type Gastritis without bleeding, unspecified chronicity, unspecified gastritis type EGD 07/13/2024 10:59 AM DATA GOVERNANCE ANALYST POC BLOOD GAS AND CHEMISTRIE S, VENOUS Routine 07/13/2024 10:12 AM DATA GOVERNANCE ANALYST TROPONIN T HIGH-SENSITIVITY 2-HOUR Timed 07/12/2024 1:59 PM DATA GOVERNANCE ANALYST URINALYSIS, MICROSCOPIC ONLY STAT 1:05 PM DATA GOVERNANCE ANALYST DRUGS OF ABUSE SCREEN, URINE WITHOUT CONFIRMATION STAT 07/12/2024 1:05 PM DATA GOVERNANCE ANALYST URINE CULTURE STAT 07/12/2024 1:05 PM DATA GOVERNANCE ANALYST URINALYSIS AND REFLEX TO MICROSCOPIC AND CULTURE STAT 07/12/2024 1:05 PM DATA GOVERNANCE ANALYST THYROID FUNCTION CASCADE STAT 025 11:53 AM DATA GOVERNANCE ANALYST EGFR STAT 07/12/2024 11:53 AM DATA GOVERNANCE ANALYST DIFFERENTIAL AUTO STAT 07/12/2024 11:53 AM DATA GOVERNANCE ANALYST TROPONIN T HIGH-SENSITIVITY SERIES (BASELINE, 2HR, 4HR, 6HR) STAT 07/12/2024 11:53 AM DATA GOVERNANCE ANALYST CBC WITH AUTO DIFFERENTIAL STAT 07/12 11:53 AM DATA GOVERNANCE ANALYST COMPREHENSIVE METABOLIC PANEL STAT 11:53 AM DATA GOVERNANCE ANALYST INFLUENZA A/B, RSV, AND COVID-19 PCR Routine 07/12/2024 11:53 AM DATA GOVERNANCE ANALYST ECG 12-LEAD STAT 07/12/2024 11:[address] FACIAL BONES WO CONTRAST ED 06/23 10:[address] CERVICAL SPINE WO CONTRAST ED 10:38 AM DATA GOVERNANCE ANALYST CT HEAD WO CONTRAST ED 07/12/2024 10:38 AM DATA GOVERNANCE ANALYST XR SHOULDER RIGHT 2 OR MORE VIEWS ED 07/12/2024 10:08 AM DATA GOVERNANCE ANALYST XR SHOULDER LEFT 2 OR MORE VIEWS ED 07/12/2024 10:08 AM DATA GOVERNANCE ANALYST POCT GLUCOSE DEVICE Routine 07/12/2024 9:33 AM DATA GOVERNANCE ANALYST LIPID PANEL Routine 05/16/2024 10:14 AM DATA GOVERNANCE ANALYST Mixed hyperlipidemia COLONOSCOPY 03/01/2024 8:49 AM CDT [...] (Constipation) 595 g Active FreeStyle Madhav 3 [facility] Use Madhav 3 [...] a day 60 tablet 1 024 Active sucroferric oxyhydroxide 500 mg tablet,chewable Take [...] neuropathy, with long-term current use of insulin ([facility]) 1 each by other route daily 100 strip [address] (PROTONIX) 40 mg EC tabletIndications :Gastroesophageal reflux disease without esophagitis TAKE 1 TABLET(40 MG) BY MOUTH TWICE DAILY 180 tablet 025 Active blood-glucose sensor (FreeStyle Madhav 3 Plus Sensor) deviceIndications :Type 2 diabetes mellitus with diabetic nephropathy, with long-term current use of insulin ([facility]) Use to continually monitor glucose, change sensor [...] 07/07/2024 Assessment & Plan (07/14/2024 2:30 PM DATA GOVERNANCE ANALYST): Continue Lipitor Assessment & Plan (07/14/2024 8:56 AM DATA GOVERNANCE ANALYST): Ok to restart atorvastatin, but also given [...] Given short course of tramadol, discussed using alfredo at pharmacy Will reach out to orthopedics, appointment not until Aug Has home physical therapy/OT set up CKD (chronic kidney disease) stage 4, GFR 15-29 ml/min 12/07/2023 Tinnitus of both ears 11/04/2023 Mixed conductive and sensori neural hearing loss of both ears 11/04/2023 Dysfunction of both eustachian tubes 11/04/2023 ESRD on hemodialysis 11/02/2023 Assessment & Plan (07/14/2024 2:39 PM DATA GOVERNANCE ANALYST): Patient is needing a Perma catheter exchange [...] proceed. Assessment & Plan (07/14/2024 8:51 AM DATA GOVERNANCE ANALYST): Following with nephrology Assessment & Plan (01/06/2024 [...] 10/30/2023 Assessment & Plan (05/06/2024 7:49 AM DATA GOVERNANCE ANALYST): Reviewed hospital discharge summary Now resolved Upcoming [...] stable Assessment & Plan (07/24/2023 1:51 PM DATA GOVERNANCE ANALYST): Chronic/stable Parkinsonism 08/14/2022 Assessment & Plan (07/14/2024 8:54 AM DATA GOVERNANCE ANALYST): Following with neurology, recommend reaching out to them in regards to restarting benztropine. Consider waiting until after restarts other medications given daughter reports tremors controlled off benztropine currently Assessment & Plan (11/10/2023 4:43 PM CDT): Following with neurology On cogentin Assessment & Plan (07/24/2023 1:50 PM DATA GOVERNANCE ANALYST): Following with neurology On cogentin twice a day Assessment & Plan (01/23/2023 9:20 AM CDT): Following with neurology On cogentin twice a day Assessment & Plan (10/10/2022 10:41 AM CDT): Following with neurology On cogentin Assessment & Plan (08/14/2022 10:46 AM DATA GOVERNANCE ANALYST): Following with neurology, reviewed note On cogentin [...] - PT/OT recommends SNF. -Plan Agueda Rizzo, SNF on 11/26 ? Assessment & Plan [...] care Assessment & Plan (08/14/2022 10:47 AM DATA GOVERNANCE ANALYST): Following with podiatry Assessment & Plan (04/02/2022 [...] - renal consulted regarding volume management, possible damage appraiser dialysis planning, expedite OP f/u. Serologies and urine studies ordered. ED neg, compliments neg, cryoglobulin pending, ANCA pending, HIV neg. Continued -Added metolazone 2.5mg/daily per renal 09/13- with improving swelling, Cr bump to 2.33 so held further -Transitioned to PO agents prior to DC (09/17) with ongoing clinical improvement. Goal weight 155lbs -Home with family at [place], lead java j2ee developer consulted to review salt restrictions. -outpatient BMP, [...] - renal consulted regarding volume management, possible residential dialysis planning, expedite OP f/u. Serologies and urine studies ordered. ED neg, compliments neg, cryoglobulin pending, ANCA pending, HIV neg. Continued -Added metolazone 2.5mg/daily per renal 09/13- with improving swelling, Cr bump to 2.33 so held further -Anticipate likely transition to PO agents prior to DC (?09/17) with ongoing clinical improvement. Goal weight 155lbs -Home with family at [place], lead java j2ee developer consulted to review salt restrictions. Assessment & [...] - renal consulted regarding volume management, possible damage appraiser dialysis planning, expedite OP f/u. Serologies and urine studies ordered. -Added metolazone 2.5mg/daily per renal. -Anticipate likely transition to PO agents prior to DC with ongoing clinical improvement. Goal weight 145-150lbs -Home with family at [place], lead java j2ee developer consulted to review salt restrictions. Assessment & [...] - renal consulted regarding volume management, possible damage appraiser dialysis planning, expedite OP f/u. Serologies and [...] - renal consulted regarding volume management, possible residential dialysis planning, expedite OP f/u. Serologies and [...] - renal consulted regarding volume management, possible residential dialysis planning, expedite OP f/u. Assessment & [...] net neg 1/2-1L/day. -consider renal consult regarding residential dialysis planning, expedite OP f/u. Assessment & [...] net neg 1/2-1L/day. -consider renal consult regarding damage appraiser dialysis planning. Assessment & Plan (09/06/2021 10:28 [...] 08/19/2021 Assessment & Plan (07/14/2024 8:53 AM DATA GOVERNANCE ANALYST): Following with neurology Assessment & Plan (01/05/2024 10:40 PM CDT): Follows with neurology. -continue risperidone 2mg QHS -continue benztropine 2mg daily Assessment & Plan (11/10/2023 4:37 PM CDT): Following with neurology Assessment & Plan (07/24/2023 1:50 PM DATA GOVERNANCE ANALYST): Following with neurology Assessment & Plan (01/23/2023 9:18 AM CDT): Following with neurology Assessment & Plan (10/10/2022 10:37 AM CDT): Following with neurology, ordered MRI, # given to son to schedule Assessment & Plan (06/09/2022 3:37 PM DATA GOVERNANCE ANALYST): Needs to reschedule with neurology Looking into [facility], but declined for [facility] for schizoaffective disorder Assessment & Plan (01/14/2022 9:05 AM CDT): Following with psychiatry Assessment & Plan (09/03/2021 3:28 PM CDT): Chronic, stable. Alert, oriented to self, current place. Continue to monitor. Clock drawing test at next interval. Consideration for Aricept. Encounter for Medicare annual wellness exam 12/21 Assessment & Plan (11/10/2023 4:42 PM CDT): Reviewed [facility] & PHQ Screening PHQ-2 Total Score (If total score is 3 or more points, staff should administer the PHQ-9): 2 Hearing/vision screening reviewed, referrals placed as needed Fall risk reviewed Reviewed medications and supplements Specialists: endocrine, nephrology, cardiology, neurology, psychiatry evidence of cognitive impairment HCM: orders placed as needed Assessment & Plan (06/09/2022 3:37 PM DATA GOVERNANCE ANALYST): Reviewed [facility] & PHQ Screening PHQ-2 Total Score (If [...] UTD, colonoscopy UTD Schizoaffective disorder, bipolar type Assessment & Plan (08/18/2024 8:44 AM DATA GOVERNANCE ANALYST): Chronic, stable. Does not report any stephanie [...] discussed. Assessment & Plan (07/14/2024 8:54 AM DATA GOVERNANCE ANALYST): Following with psychiatry, recommend reaching out to [...] psychiatry Assessment & Plan (07/24/2023 1:50 PM DATA GOVERNANCE ANALYST): Following with psychiatry Assessment & Plan (01/23/2023 [...] discussed. Assessment & Plan (08/09/2021 5:42 AM DATA GOVERNANCE ANALYST): Following with psychiatry Assessment & Plan (08/07/2021 3:28 PM DATA GOVERNANCE ANALYST): Chronic condition, switch to Haldol and has had multiple different problems including acute kidney failure in infectious process. Records not available at outside [facility]. Confounded by delirium. Currently experiencing delirium will discontinue Haldol and return to Risperdal as previously taking. Risperdal was discontinued due to poorly-controlled diabetes. Monitor in 1 to 2 weeks. Assessment & Plan (07/03/2021 7:24 AM DATA GOVERNANCE ANALYST): Following with psychiatry D/c risperidone, started on haldol Assessment & Plan (07/01/2021 9:16 PM DATA GOVERNANCE ANALYST): Chronic, stable. 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 The patient previously lived on her own and was observed to be hoarding. See additional problems-dementia. Evaluate again in 1 month after starting Risperdal. Iron deficiency anemia 04/02/2020 Assessment & Plan (05/06/2024 7:51 AM DATA GOVERNANCE ANALYST): Recommend discussing IV iron with nephrology Assessment & Plan (10/02/2020 4:35 PM CDT): Continue iron Assessment & Plan (05/28/2020 1:51 PM DATA GOVERNANCE ANALYST): Iron levels recently normalized, but still anemic, repeat today Assessment & Plan (04/16/2020 11:45 AM CDT): Recent iron within normal limits, H/H improving, continue supplementation until normalized Gastroesophageal reflux disease without esophagi tis 04/02/2020 Assessment & Plan (07/14/2024 8:56 AM DATA GOVERNANCE ANALYST): Restart protonix Upcoming EGD Assessment & Plan (01/05/2024 10:40 PM CDT): -continue famotidine Assessment & Plan (10/02/2020 4:35 PM CDT): Continue omeprazole Assessment & Plan (07/24/2020 2:06 PM DATA GOVERNANCE ANALYST): Recurrent symptoms off omeprazole, restart Assessment & Plan (05/28/2020 1:51 PM DATA GOVERNANCE ANALYST): Iron levels recently normalized, but still anemic, repeat today Assessment & Plan (04/02/2020 1:26 PM CDT): Start PPI History of amputation of toe 01/19/2020 Assessment & Plan (01/08/2021 3:50 PM CDT): Stable Assessment & Plan (10/02/2020 4:35 PM CDT): Stable Assessment & Plan (04/30/2020 1:00 PM DATA GOVERNANCE ANALYST): Stable Assessment & Plan (02/14/2020 5:15 PM CDT): Healing well Following with surgeon/wound clinic Assessment & Plan (01/19/2020 5:17 PM CDT): Has home health Following with vascular Hypertension associated with diabetes 12/13/2019 Assessment & Plan (07/14/2024 2:32 PM DATA GOVERNANCE ANALYST): Continue carvedilol, hydralazine Assessment & Plan (07/14/2024 8:51 AM DATA GOVERNANCE ANALYST): BP controlled today off medication Daughter reports nephrology said could restart medication, is planning to restart coreg first and monitor blood pressure prior to restarting nifedipine/hydralazine Assessment & Plan (05/06/2024 7:48 AM DATA GOVERNANCE ANALYST): BP controlled Continue nifedipine, hold prior to [...] x1 with HD. Most recent admission at [facility] with initiation of hydralazine and nifedipine in [...] amlodipine Assessment & Plan (08/03/2023 4:02 PM DATA GOVERNANCE ANALYST): BP uncontrolled Start 5mg amlodipine Assessment & Plan (07/24/2023 1:49 PM DATA GOVERNANCE ANALYST): Blood pressure borderline today off medications Assessment & Plan (01/23/2023 9:18 AM CDT): Blood pressure borderline low today, asymptomatic Checking labs Advised to decrease amlodipine to 5mg and monitor blood pressure Assessment & Plan (10/10/2022 10:50 AM CDT): Continue coreg 6.25mg twice a day & 40mg valsartan Assessment & Plan (08/14/2022 10:43 AM DATA GOVERNANCE ANALYST): Blood pressure at goal, continue coreg 6.25mg twice a day Assessment & Plan (06/09/2022 3:32 PM DATA GOVERNANCE ANALYST): Blood pressure at goal, continue coreg 3.125mg [...] day Assessment & Plan (08/05/2021 10:35 AM DATA GOVERNANCE ANALYST): Blood pressure at goal Increase amlodipine to 10mg & d/c hydralazine per cardiology Assessment & Plan (05/28/2021 4:59 PM DATA GOVERNANCE ANALYST): Blood pressure above goal, but previously within [...] lisinopril Assessment & Plan (08/28/2020 12:12 PM DATA GOVERNANCE ANALYST): Blood pressure at goal Continue lisinopril Assessment & Plan (07/24/2020 2:05 PM DATA GOVERNANCE ANALYST): Blood pressure at goal Continue lisinopril Assessment & Plan (05/28/2020 1:50 PM DATA GOVERNANCE ANALYST): BP borderline Continue 10mg lisinopril Continue to monitor Assessment & Plan (04/30/2020 12:32 PM DATA GOVERNANCE ANALYST): BP borderline Continue 10mg lisinopril Continue to [...] 08/30/2019 Assessment & Plan (07/14/2024 2:31 PM DATA GOVERNANCE ANALYST): Controlled. Continue as per Endocrine and PCP Assessment & Plan (07/14/2024 8:50 AM DATA GOVERNANCE ANALYST): Following with endocrine, reviewed note Holding insulin [...] +SSI Assessment & Plan (07/24/2023 1:49 PM DATA GOVERNANCE ANALYST): Lab Results Component Value Date HGBA1C 8.1 [...] trulicity Assessment & Plan (08/14/2022 10:42 AM DATA GOVERNANCE ANALYST): Following with endocrine Continue lantus, 12 units humalog TIDAC & 1.5mg trulicity Assessment & Plan (06/09/2022 3:32 PM DATA GOVERNANCE ANALYST): Following with endocrine Home blood sugar at [...] for strict med oversight by family at [place] reviewed with daughter this admit. Assessment & [...] for strict med oversight by family at [place] reviewed with daughter this admit. Assessment & [...] and nephropathy. Med oversight by family at [place]. Assessment & Plan (09/14/2021 12:22 PM CDT): [...] as she had discussed this with outpatient traveling secretary - repeat A1c - resume home statin, not currently on feliciano due to kidney function Assessment & Plan (08/05/2021 10:35 AM DATA GOVERNANCE ANALYST): Continue 15 units lantus twice a day Assessment & Plan (07/03/2021 7:24 AM DATA GOVERNANCE ANALYST): Fasting blood sugar significantly improved Risperidone changed Continue current meds Continue to monitor Assessment & Plan (06/18/2021 11:22 AM DATA GOVERNANCE ANALYST): Increase lantus to 60 units nightly, if blood sugar still above goal after 1 week split into 33 units twice a day Follow up with blood sugar via portal in 2 weeks Continue jardiance 25mg Continue trulicity 4.5mg weekly Assessment & Plan (05/28/2021 4:58 PM DATA GOVERNANCE ANALYST): Increase lantus to 55 units nightly Continue [...] weekly Assessment & Plan (08/28/2020 1:00 PM DATA GOVERNANCE ANALYST): DM Care Plan: Meds: Lantus - continue [...] recheck Assessment & Plan (07/24/2020 2:05 PM DATA GOVERNANCE ANALYST): Formulary change 2/2 insurance, switched to trulicity. Will increase to 1.5mg Assessment & Plan (05/28/2020 1:50 PM DATA GOVERNANCE ANALYST): Check a1c Sixto isn't checking blood sugar regularly, but when she is she has several >200 so I lean towards increasing if a1c>7 Assessment & Plan (04/30/2020 12:31 PM DATA GOVERNANCE ANALYST): Blood sugar improved on 40 units basaglar [...] week for reassessment Wheezing Renal disorder Immunizations Immunization Administration Dates Next Due Heplisav-b [...] materials from doctor or pharmacy Often 01/20/2024 [facility] Utilities Answer Date Recorded In the past 12 months has th e [employer], gas, oil, or water [employer] threatened to shut off services in your [...] week 04/20/2024 How often do you attend [facility] or [facility]? More than 4 times [...] slept in a jail (including now)? No 10/30/2023 PHQ-9 Answer Date [...] time in the past 12 m [facility], were you homeless or living in a jail (including now)? No 04/20/2024 Personal Safety Answer Date Recorded Have you ever been in or are you currently in a harmful physical or emotional relationship or is someone making you feel afraid or unsafe? Denies 07/31/2024 Comments No Sex and Gender Information Value Date Recorded Sex Assigned at Not on file Legal Sex Female 9:03 AM DATA GOVERNANCE ANALYST Gender Identity Female 02/08/2020 6:39 PM CDT Sexual Orientation Not on file Last Filed Vital Signs Vital Sign Reading Time Taken Comments Blood Pressure 110/56 08/31/2024 2:38 PM CDT Pulse 74 08/31/2024 2:38 PM CDT Temperature 36.3 C (97.3 F) 07/31/2024 12:52 PM DATA GOVERNANCE ANALYST Respiratory Rate 16 07/31/2024 12:52 PM DATA GOVERNANCE ANALYST Oxygen Saturation 97% 08/31/2024 2:38 PM CDT Inhaled Oxygen Concentration - - Weight 60.1 kg (132 lb 6.4 oz) 08/31/2024 2:38 P M CDT Height 157.5 cm (5' 2 ) 08/22/2024 8:51 AM DATA GOVERNANCE ANALYST Body Mass Index 24.22 08/22/2024 8:51 AM DATA GOVERNANCE ANALYST Results * POCT hemoglobin A1c (08/22/2024 8:55 AM DATA GOVERNANCE ANALYST) Pathologist [facility] Hemoglobin A1C, POC 7.7 4.0 - 5.6 % Blood 08/22/2024 8:55 AM DATA GOVERNANCE ANALYST Smith Gibbs MD POINT OF CARE TEST ORDERABLE S Final Result * Respiratory pathogen panel Nasopharyngeal (07/31/2024 1:02 PM DATA GOVERNANCE ANALYST) Pathologist [facility] Influenza A RNA Not Detected Not Detected [facility] Influenza B RNA Not Detected Not Detected [facility] RSV RNA Not Detected Not Detected [facility] COVID-19 RNA Not Detected Not Detected [facility] Coronavirus 229E RNA Not Detected Not Detected [facility] Coronavirus HKU1 RNA Not Detected Not Detected [facility] Coronavirus NL63 RNA Not Detected Not Detected [facility] Coronavirus OC43 RNA Not Detected Not Detected [facility] Adenovirus DNA Not Detected Not Detected [facility] Metapneumovirus RNA Not Detected Not Detected [facility] Rhinovirus/Enterov irus RNA Not Detected Not Detected [facility] Parainfluenza 1 RNA Not Detected Not Detected [facility] Parainfluenza 2 RNA Not Detected Not Detected [facility] Parainfluenza 3 RNA Not Detected Not Detected [facility] Parainfluenza 4 RNA Not Detected Not Detected [facility] B. pertussis DNA Not Detected Not Detected [facility] B. parapertussis DNA Not Detected Not Detected [facility] C. pneumoniae DNA Not Detected Not Detected [facility] M. pneumoniae DNA Not Detected Not Detected [facility] Comment: Interpretive Data The [employer] FilmArray Respiratory Panel (RP2.1) assay is a [...] assay has FDA clearance for testing of AQUACULTURE DIRECTOR swabs. The performance characteristics of this assay have been determined by [facility]. Current interpretive data was last revised on 2021. Nasopharyngeal 07/31/2024 1: 02 PM DATA GOVERNANCE ANALYST 07/31/2024 1:05 PM DATA GOVERNANCE ANALYST Narrative NILSA - 07/31/2024 2:05 PM DATA GOVERNANCE ANALYST Is the Patient experiencing symptoms consistent with COVID?->Yes Surveillance testing for transplant patient?->No Lucy Lucero MD LAB MICROBIOLOGY - [facility] ORDERABLES Final Result NILSA [id number] Department [place] [address] * Diabetic Eye Exam (07/27/2024 12:37 PM DATA GOVERNANCE ANALYST) Historical Provider HEALTH MAINTENANCE Final Result * HM DIABETES EYE EXAM (07/22/2024) Historical Provider HEALTH MAINTENANCE Final Result * XR Chest 1 View (07/15/2024 1:11 PM DATA GOVERNANCE ANALYST) Anatomical Region Laterality Modality Body, Chest N/A Computed Radiogr aphy 07/15/2024 1:35 PM DATA GOVERNANCE ANALYST Narrative 07/15/2024 1:36 PM DATA GOVERNANCE ANALYST EXAM DESCRIPTION: XR CHEST 1 VIEW REASON [...] Yosef Lindo D.O. PS T: Report ID: [id number] Reading Location: [id number] Procedure Note Yosef Lindo, DO - 07/15/2024 EXAM DESCRIPTION: XR CHEST 1 [...] Yosef Lindo D.O. PS T: Report ID: [id number] Reading Location: [id number] us Edgardo Kauffman MD IMG XR PROCEDURES Final Re sult * RPL DRE CVC W/O PUMP [id number] (07/15/2024 12:40 PM DATA GOVERNANCE ANALYST) Anatomical Region Laterality Modality X-Ray Angiograph y Narrative 07/15/2024 12:45 PM DATA GOVERNANCE ANALYST Please see OpNote for result. us Edgardo Kauffman MD CV CARDIAC CATH PROCEDURES Final Result * XR Chest 1 View (07/14/2024 1:16 PM DATA GOVERNANCE ANALYST) Anatomical Region Laterality Modality Body, Chest N/A Computed Radiogr aphy 07/14/2024 1:20 PM DATA GOVERNANCE ANALYST Narrative 07/14/2024 1:22 PM DATA GOVERNANCE ANALYST EXAM DESCRIPTION: XR CHEST 1 VIEW REASON [...] Salvador Villa M.D. KR T: Report ID: [id number] Reading Location: [id number] Procedure Note Salvador Villa MD - 07/14/2024 [...] Salvador Villa M.D. KR T: Report ID: [id number] Reading Location: [place] [address] Edgardo Kauffman MD IMG XR PROCEDURES Final Re sult * (ABNORMAL) eGFR (07/14/2024 12:34 PM DATA GOVERNANCE ANALYST) Pathologist [facility] eGFR 7(L) >=60 mL/min/1. 73 m2 Comment: [...] reviewed 2021. Blood 07/14/2024 12:3 4 PM DATA GOVERNANCE ANALYST 07/14/2024 12:41 PM DATA GOVERNANCE ANALYST Edgardo Kauffman MD LAB BLOOD ORDERABLES Final Result CARLOS ENRIQUEYFN [address] [facility] Department [place] [address] * (ABNORMAL) Differential, auto (07/14/2024 12:34 PM DATA GOVERNANCE ANALYST) Neutrophil abs 7.8(H) 1.5 - 6.5 K/cumm Imm gran abs 0.0 0.0 - 0.1 K/cumm [facility] Lymphocyte abs 1.5 0.8 - 3.3 K/cumm [facility] Monocyte abs 0.5 0.2 - 0.8 K/cumm [facility] Eosinophil abs 0.2 0.0 - 0.5 K/cumm [facility] Basophil abs 0.0 0.0 - 0.1 K/cumm [facility] Neutrophil pct 78.1 % [facility] Comment: Interpretive Data Percent cell count reference ranges are not reported, since discordance with absolute values may lead to misinterpretation of CBC data. Current Interpretive Data was last revised on 2017. Imm gran pct 0.4 % [facility] Comment: Interpretive Data Percent cell count reference ranges are not reported, since discordance with absolute values may lead to misinterpretation of CBC data. Current Interpretive Data was last revised on 2017. Lymphocyte pct 14.8 % [facility] Comment: Interpretive Data Percent cell count reference ranges are not reported, since discordance with absolute values may lead to misinterpretation of CBC data. Current Interpretive Data was last revised on 2017. Monocyte pct 4.7 % [facility] Comment: Interpretive Data Percent cell count reference ranges are not reported, since discordance with absolute values may lead to misinterpretation of CBC data. Current Interpretive Data was last revised on 2017. Eosinophil pct 1.6 % [facility] Comment: Interpretive Data Percent cell count reference ranges are not reported, since discordance with absolute values may lead to misinterpretation of CBC data. Current Interpretive Data was last revised on 2017. Basophil pct 0.4 % [facility] Comment: Interpretive Data Percent cell count reference ranges are not reported, since discordance with absolute values may lead to misinterpretation of CBC data. Current Interpretive Data was last revised on 2017. Blood 07/14/2024 12:3 4 PM DATA GOVERNANCE ANALYST 07/14/2024 12:41 PM DATA GOVERNANCE ANALYST us Edgardo Kauffman MD LAB BLOOD ORDERABLES Final Result [place]OS [place] [id number] [facility] [place] [address] * (ABNORMAL) CBC with auto differential (07/14/2024 12:34 PM DATA GOVERNANCE ANALYST) [facility] WBC 9.9 3.8 - 9.9 K/cumm Hgb 11.6(L) 11.9 - 15.5 g/dL [facility] Hct 35.3(L) 35.6 - 45.5 % [facility] Plt 241 150 - 400 K/cumm [facility] MPV 11.0 9.1 - 12.3 fL [facility] RBC 3.63(L) 3.90 - 5.20 M/cumm [facility] MCV 97.2(H) 81.3 - 96.4 fL [facility] MCH 32.0 27.1 - 33.3 pg [facility] MCHC 32.9 32.3 - 35.7 g/dL [facility] RDW CV 15.4(H) 11.1 - 14.9 % [facility] RDW SD 54.8(H) 35.7 - 48.1 fL [facility] NRBC abs 0.00 0.00 - 0.01 K/cumm [facility] Blood 07/14/2024 12:3 4 PM DATA GOVERNANCE ANALYST 07/14/2024 12:41 PM DATA GOVERNANCE ANALYST us Edgardo Kauffman MD LAB BLOOD ORDERABLES Final Result Performing Organization Address [facility]/ZIP Co de Phone Number [address] Department [place] [address] * (ABNORMAL) Basic metabolic panel (07/14/2024 12:34 PM DATA GOVERNANCE ANALYST) [facility] Sodium 138 135 - 145 mmol/L Potassium, pl 4.1 3.3 - 4.9 mmol/L [facility] Comment:Hemolyzed; Potassium value may be falsely elevated by as much as 1.0 mmol/L. Suggest redraw and reanalysis. Chloride 100 97 - 110 mmol/L [facility] CO2 25 22 - 32 mmol/L [facility] Anion gap 13 2 - 15 mmol/L [facility] BUN 51(H) 6 - 25 mg/dL [facility] Creatinine 6.22(H) 0.60 - 1.10 mg/dL [facility] Glucose 155 70 - 199 mg/dL [facility] Comment: Interpretive Data Fasting glucose >/= [...] 2022. Calcium 9.4 8.5 - 10.3 mg/dL [facility] Blood 07/14/2024 12:3 4 PM DATA GOVERNANCE ANALYST 07/14/2024 12:41 PM DATA GOVERNANCE ANALYST Edgardo Kauffman MD LAB BLOOD ORDERABLES Final Result [address] Department of Laboratories [place] [id number] * Surgical pathology (07/13/2024 11:10 AM DATA GOVERNANCE ANALYST) Tissue (Duodenum, Biopsy) 07/13/2024 11:10 AM DATA GOVERNANCE ANALYST Tissue (Gastric/Stomach biopsy) 07/13/2024 11:11 AM DATA GOVERNANCE ANALYST Tissue (Gastric/Stomach biopsy) 07/13/2024 11:11 AM DATA GOVERNANCE ANALYST Tissue (Esophageal biopsy) 07/13/2024 11:13 AM DATA GOVERNANCE ANALYST Narrative PATHOLOGY [facility] - 07/14/2024 1:59 PM DATA GOVERNANCE ANALYST [facility] Department of Pathology [facility] [place], [place] [address] Note to Patients: This report may contain [...] : 1950 (Age: 73) Gender: F Address: [address] [place] [address] Hospital #: [id number] Service: Gastro Location: Patient Type: [facility] OUTPATIENT Taken: 07/13/2024 Received: 07/13/2024 Accessioned: 07/13/2024 [...] cm. Entirely submitted. Labeled D1. Jar 0. [facility]/07/13/2024 13:31 CAMILA Johnson, PA (ASCP) Microscopic slide review and interpretation for this case was performed at [facility], Department of Surgical Pathology, [address] [facility] [place], [place] [id number], [place] [address] [place] # [id number] us Jaya Grier MD LAB PATHOLOGY ORDERABLES Final R esult PATHOLOGY [facility] * EGD (07/13/2024 10:59 AM DATA GOVERNANCE ANALYST) Anatomical Region Laterality Modality Other Narrative Procedure Note Jaya Grier MD - 07/13/2024 10:59 AM CST [facility] ENDOSCOPY Patient Name: Sixto Chakraborty Procedure Date: 07/13/2024 10:59 AM Date of : 1950 Admit Type: Outpatient Age: 73 Gender: Female Attending MD: Jaya Grier M.D. Room: [facility] ENDOSCOPY ROOM 06 Note Status: Finalized [...] On: 07/13/2024 10:59 AM Recognized by the [place] [employer] for promoting quality in endoscopy Jaya Grier MD ENDOSCOPY PROCEDURES Final Resul t * (ABNORMAL) POC Blood Gas and Chemistries, Venous - (07/13/2024 10:12 AM DATA GOVERNANCE ANALYST) pH,chris POC 7.40 7.32 - 7.43 pCO2, chris POC 49 40 - 50 mmHg [facility] pO2,chris POC 36 mmHg [facility] Comment: Interpretive Data No reference range established. Current interpretive data was last revised 2020. HCO3, chris (Calc) POC 30 20 - 30 mmol/L [facility] Base excess, chris POC 4 mmol/L [facility] Comment: Interpretive Data No reference range established. Current interpretive data was last revised 2020. Hemoglobin, chris POC 13.9 11.9 - 15.5 g/dL [facility] Hematocrit, chris POC 41.0 35.6 - 45.5 % [facility] Sodium, chris POC 134(L) 135 - 145 mmol/L [facility] Potassium, chris POC 4.6 3.3 - 4.9 mmol/L [facility] Comment: Interpretive Data This method is not able to assess for hemolysis, which may falsely increase potassium concentrations. If further testing is needed to evaluate this result, consider in-laboratory plasma potassium. Current Interpretive Data was last revised on 2022. Glucose, chris POC 145 70 - 199 mg/dL [facility] Ionized Calcium, chris POC 4.70 4.50 - 5.10 mg/dL [facility] Blood 07/13/2024 10:1 2 AM DATA GOVERNANCE ANALYST 07/13/2024 10:12 AM DATA GOVERNANCE ANALYST Jaya Grier MD LAB POCT ORDERABLES - DEVICE Fin al Result Performing Organization Address [facility] Co de Phone Number [address] [employer] [place] [address] * (ABNORMAL) Troponin T high-sensitivity 2-hour (07/12/2024 1:59 PM DATA GOVERNANCE ANALYST) Trop T hs 63(H) <=14 ng/L Comment: Interpretive Data For further hscTnT resources including the diagnostic algorithm and an aid in interpretation, copy and paste this link: https://nrl.testcatalog.org/show/hsTrop Current Interpretive Data last revised 2020. Testing performed by: [address] [address] Trop T hs delta -5 ng/L [facility] Comment:Testing performed by : [address] [address] Trop T hs interp Equivocal [facility] Comment:Testing performed by : [address] [address] Blood 07/12/2024 1:59 PM DATA GOVERNANCE ANALYST 07/12/2024 2:20 PM DATA GOVERNANCE ANALYST Donna CUEVA LAB BLOOD ORDERABLES Final Re sult Performing Organization Address [facility] Co de Phone Number [facility] [address] [facility] [employer] [place], [place] [phone] * (ABNORMAL) Urinalysis reflex to microscopic and culture Urine (07/12/2024 1:05 PM DATA GOVERNANCE ANALYST) Color, ur Mikayla Yellow Comment:Testing performed by : [address] [address] Clarity, ur Turbid(A) Clear [facility] Comment:Testing performed by : [address] [address] Specific gravity, ur 1.006 1.003 - 1.030 [facility] Comment:Testing performed by : [address] [address] pH, urine 6.0 [facility] Comment: Interpretive Data U rine pH is affected by diet, medications, systemic acid-base disturbances, and renal tubular function. pH may affect urinary stone formation. For example, urine pH below 6.0 may help reduce the tendency for calcium phosphate stones and pH greater than 6.0 may reduce the tendency for uric acid stone formation. Source: [facility] [employer] Current Interpretive Data was last revised on 2017 Testing performed by: [address] [address] Protein, ur ql 2+(A) Negative [facility] Comment:Testing performed by : [address] [address] Glucose, ur ql 1+(A) Negative [facility] Comment:Testing performed by : [address] [address] Ketones, ur Negative Negative [facility] Comment:Testing performed by : [address] [address] Bilirubin, ur Negative Negative [facility] Comment:Testing performed by : [address] [address] Blood, ur 2+(A) Negative [facility] Comment:Testing performed by : [address] [address] Urobilinogen, ur <2.0 <2.0 mg/dL [facility] Comment:Testing performed by : [address] [address] Nitrite, ur Negative Negative [facility] Comment:Testing performed by : [address] [address] Leukocyte esterase, ur 4+(A) Negative [facility] Comment:Testing performed by : [address] [address] UA reflex comment Reflex to microscopic UA will be performed. [facility] Comment:Testing performed by : [address] [address] Urine 07/12/2024 1:05 PM DATA GOVERNANCE ANALYST 07/12/2024 1:09 PM DATA GOVERNANCE ANALYST Donna CUEVA LAB MICROBIOLOGY - GENERAL OR DERABLES Final Result NILSA [address] [facility] Department of Laboratories [place], [place] [id number] * Drugs of Abuse Screen, Urine without Confirmation (07/12/2024 1:05 PM DATA GOVERNANCE ANALYST) Amphetamine, ur Not Detected CutOff 500ng/mL Comment: Interpretive Data - Amphetamines: Samples containing greater than 500 ng/mL d-methamphetamine or other cross-reacting amphetamine compounds are reported as positive. Amphetamine immunoassays are subject to significant false positive rates due to cross-reactivity of non-amphetamine drugs. Confirmatory testing required for definitive results. Current Interpretive Data was last reviewed 2023. Testing performed by: [address] [address] Barbiturates, ur Not Detected CutOff 200ng/mL [facility] Comment: Interpretive Data - Barbiturates: Samples containing greater than 200 ng/mL secobarbital or other cross-reacting barbiturate compounds are reported as positive. False positive and false negative results are possible. Confirmatory testing required for definitive results. Current Interpretive Data was last reviewed 2023. Testing performed by: [address] [address] Benzodiazepines, ur Not Detected CutOff 100ng/mL [facility] Comment: Interpretive Data - Benzodiazepines: Samples containing greater than 100 ng/mL nordiazepam or other cross-reacting compounds are reported as positive. False positive and false negative results are possible. Confirmatory testing required for definitive results. Current Interpretive Data was last reviewed 2023. Testing performed by: [address] [address] Cannabinoids, ur Not Detected CutOff 50 ng/mL [facility] Comment: Interpretive Data - Cannabinoids: Samples containing greater than 50 ng/mL delta-9 THC -COOH or other cross- reacting compounds are reported as positive. False positive and false negative results are possible. Confirmatory testing required for definitive results. Current Interpretive Data was last reviewed 2023. Testing performed by: [facility], [address] [place] [address]., [address] Cocaine, ur Not Detected CutOff 150ng/mL [facility] Comment: Interpretive Data - Cocaine: Samples containing greater than 150 ng/mL benzoylecgonine or other cross- reacting compounds are reported as positive. False positive and false negative results are possible. Confirmatory testing required for definitive results. Current Interpretive Data was last reviewed 2023. Testing performed by: [address], [place]., [address] Fentanyl, Ur Not Detected Cutoff 1 ng/mL [facility] Comment: Interpretive Data - Fentanyl: Samples containing greater than 1 ng/mL fentanyl or other cross-reacting fentanyl compounds are reported as positive. False positive and false negative results are possible. Confirmatory testing required for definitive results. Current Interpretive Data was last reviewed 2023. Testing performed by: [facility], [address] [place] [address]., [address] Methadone, ur Not Detected CutOff 300ng/mL [facility] Comment: Interpretive Data - Methadone: Samples containing greater than 300 ng/mL d,l-methadone or other cross-reacting compounds are reported as positive. False positive and false negative results are possible. Confirmatory testing required for definitive results. Current Interpretive Data was last reviewed 2023. Testing performed by: [address] [address] Opiates, ur Not Detected CutOff 300ng/mL [facility] Comment: Interpretive Data - Opiates: Samples containing greater than 300 ng/mL morphine or other cross-reacting compounds are reported as positive. False positive and false negative results are possible. Confirmatory testing required for definitive results. Current Interpretive Data was last reviewed 2023. Testing performed by: [facility], [address] [place] [address]., [address] Oxycodone, ur Not Detected CutOff 100ng/mL [facility] Comment: Interpretive Data - Oxycodone: Samples containing greater than 100 ng/mL oxycodone or other cross-reacting compounds are reported as positive. False positive and false negative results are possible. Confirmatory testing required for definitive results. Current Interpretive Data was last reviewed 2023. Testing performed by: [address] [address] Phencyclidine, ur Not Detected CutOff 25 ng/mL [facility] Comment: Interpretive Data - Phencyclidine: Samples containing greater than 25 ng/mL phencyclidine or other cross-reacting compounds are reported as positive. False positive and false negative results are possible. Confirmatory testing required for definitive results. Current Interpretive Data was last reviewed 2023. Testing performed by: [address] [address] Urine Creatinine 74 mg/dL [facility] Comment: Interpretive Data Urine Creatinine: < 10 mg/dL is extremely dilute = or > 10 but < 20 mg/dL is dilute = or > 20 mg/dL is normal Current Interpretive Data was last revised on 2017. Testing performed by: [address] [address] Urine 07/12/2024 1:05 PM DATA GOVERNANCE ANALYST 07/12/2024 1:09 PM DATA GOVERNANCE ANALYST Narrative NILSA - 07/12/2024 1:31 PM DATA GOVERNANCE ANALYST Drug of Abuse screening is performed by immunoassay for medical purposes only. This is not to be used for Pain Management purposes. Donna CUEVA LAB URINE ORDERABLES Final Re sult [facility] [address] [facility] Department [place] [address] * (ABNORMAL) Urinalysis, microscopic only (07/12/2024 1:05 PM DATA GOVERNANCE ANALYST) WBC, ur >50(A) 0 - 5 /HPF Comment:Testing performed by : [address] [address] RBC, ur 11-20(A) 0 - 2 /HPF [facility] Comment:Testing performed by : [address] [address] Bacteria, ur 4+(A) [facility] Comment:Testing performed by : [facility], [address] [place] [address]., [address] Culture Reflex Comment Reflex to urine culture will be performed. NILSA Comment:Testing performed by : [facility], [address] [place] [address]., [address] Urine 07/12/2024 1:05 PM DATA GOVERNANCE ANALYST 07/12/2024 1:09 PM DATA GOVERNANCE ANALYST Donna CUEVA LAB URINE ORDERABLES Final Re sult Performing Organization Address [facility]/ZIP Co de Phone Number NILSA [address] [facility] [place] [address] * (ABNORMAL) Urine culture Urine (07/12/2024 1:05 PM DATA GOVERNANCE ANALYST) Report Final Report: Greater than or equal to 100,000 colonies/mL of Escherichia coli (.) Comment:Testing performed by : [facility], [address] [place]., [address] Organism ESCHERICHIA COLI [facility] Urine 07/12/2024 1:05 PM DATA GOVERNANCE ANALYST 07/12/2024 3:03 PM DATA GOVERNANCE ANALYST Narrative NILSA - 07/14/2024 2:20 PM DATA GOVERNANCE ANALYST Urine culture reflexed based upon urinalysis results. Testing performed by [facility] Laboratory ([phone]) Organism Antibiotic Method Susceptibility Escherichia coli Ampicillin [...] - GENERAL OR DERABLES Final Result NILSA [address] [facility] [place] [address] * (ABNORMAL) Troponin T high-sensitivity series (baseline, 2hr, 4hr, 6hr) (07/12/2024 11:53 AM DATA GOVERNANCE ANALYST) Pathologist [facility] Trop T hs 68(H) <=14 ng/L Comment: REDRAW: HEMOLYZED SPECIMEN Interpretive Data For further hscTnT resources including the diagnostic algorithm and an aid in interpretation, copy and paste this link: https://nrl.testcatalog.org/show/hsTrop Current Interpretive Data last revised 2020. Testing performed by: [address] [address] Blood 07/12/2024 11:5 3 AM DATA GOVERNANCE ANALYST 07/12/2024 11:58 AM DATA GOVERNANCE ANALYST Donna CUEVA LAB BLOOD ORDERABLES Final Re sult [facility] [address] [facility] Department [place] [address] * Influenza A/B, RSV, and COVID-19 PCR Nasopharyngeal (07/12/2024 11:53 AM DATA GOVERNANCE ANALYST) [facility] COVID-19 RNA Negative Negative Comment:Testing performed by : [address] [address] Influenza A RNA Negative Negative [facility] Comment:Testing performed by : [address] [address] Influenza B RNA Negative Negative [facility] Comment:Testing performed by : [address] [address] RSV RNA Negative Negative [facility] Comment: Interpretive data: Testing performed by [facility]. This test is performed using the [employer] Xpert Xpress CoV-2/Flu/RSV plus assay. This is a multiplex, real-time reverse transcriptase PCR assay intended for the qualitative detection of nucleic acid from SARS-CoV-2, influenza A, influenza B, and respiratory syncytial virus. This assay has been cleared by the [place] Food and Drug administration. The performance characteristics have been verified by the [facility]. Results must be considered in the clinical context, and a negative result does not rule out infection. Interpretive Data last revised 2023 Testing performed by: [address] [address] Nasopharyngeal 07/12/2024 11 :53 AM DATA GOVERNANCE ANALYST 07/12/2024 11:58 AM DATA GOVERNANCE ANALYST Narrative NILSA - 07/12/2024 12:38 PM DATA GOVERNANCE ANALYST Is the Patient experiencing symptoms consistent with COVID?->Unknown Donna CUEVA LAB MICROBIOLOGY - GENERAL OR DERABLES Final Result NILSA [address] [facility] Department [place] [address] * (ABNORMAL) eGFR (07/12/2024 11:53 AM DATA GOVERNANCE ANALYST) eGFR 10(L) >=60 mL/min/1. 73 m2 Comment: [...] reviewed 2021. Testing performed by: [facility], [address] [place] [address]., [address] Blood 07/12/2024 11:5 3 AM DATA GOVERNANCE ANALYST 07/12/2024 11:58 AM DATA GOVERNANCE ANALYST us Donna CUEVA LAB BLOOD ORDERABLES Final Re sult NILSA [address] [facility] Department [place] [address] * (ABNORMAL) Differential, auto (07/12/2024 11:53 AM DATA GOVERNANCE ANALYST) Neutrophil abs 9.2(H) 1.5 - 6.5 K/cumm Comment:Testing performed by : [address] [address] Imm gran abs 0.1 0.0 - 0.1 K/cumm [facility] Comment:Testing performed by : [address] [address] Lymphocyte abs 1.5 0.8 - 3.3 K/cumm [facility] Comment:Testing performed by : [address] [address] Monocyte abs 0.5 0.2 - 0.8 K/cumm [facility] Comment:Testing performed by : [address] [address] Eosinophil abs 0.1 0.0 - 0.5 K/cumm [facility] Comment:Testing performed by : [address] [address] Basophil abs 0.0 0.0 - 0.1 K/cumm [facility] Comment:Testing performed by : [address] [address] Neutrophil pct 81.0 % [facility] Comment: Interpretive Data Percent cell count reference ranges are not reported, since discordance with absolute values may lead to misinterpretation of CBC data. Current Interpretive Data was last revised on 2017. Testing performed by: [address] [address] Imm gran pct 0.4 % [facility] Comment: Interpretive Data Percent cell count reference ranges are not reported, since discordance with absolute values may lead to misinterpretation of CBC data. Current Interpretive Data was last revised on 2017. Testing performed by: [address] [address] Lymphocyte pct 13.4 % [facility] Comment: Interpretive Data Percent cell count reference ranges are not reported, since discordance with absolute values may lead to misinterpretation of CBC data. Current Interpretive Data was last revised on 2017. Testing performed by: [address] [address] Monocyte pct 4.2 % [facility] Comment: Interpretive Data Percent cell count reference ranges are not reported, since discordance with absolute values may lead to misinterpretation of CBC data. Current Interpretive Data was last revised on 2017. Testing performed by: [address] [address] Eosinophil pct 0.6 % [facility] Comment: Interpretive Data Percent cell count reference ranges are not reported, since discordance with absolute values may lead to misinterpretation of CBC data. Current Interpretive Data was last revised on 2017. Testing performed by: [address] [address] Basophil pct 0.4 % [facility] Comment: Interpretive Data Percent cell count reference ranges are not reported, since discordance with absolute values may lead to misinterpretation of CBC data. Current Interpretive Data was last revised on 2017. Testing performed by: [address] [address] Blood 07/12/2024 11:5 3 AM DATA GOVERNANCE ANALYST 07/12/2024 11:58 AM DATA GOVERNANCE ANALYST Donna CUEVA LAB BLOOD ORDERABLES Final Re sult NILSA [address] [facility] Department of Laboratories [place], [place] [id number] * Thyroid Function [place] (07/12/2024 11:53 AM DATA GOVERNANCE ANALYST) TSH 1.22 0.30 - 4.20 mcIUnit/mL Comment:Testing performed by : [address] [address] Blood 07/12/2024 11:5 3 AM DATA GOVERNANCE ANALYST 07/12/2024 11:58 AM DATA GOVERNANCE ANALYST us Donna CUEVA LAB BLOOD ORDERABLES Final Re sult NILSA [address] [facility] Department [place] [address] * (ABNORMAL) CBC with auto differential (07/12/2024 11:53 AM DATA GOVERNANCE ANALYST) WBC 11.3(H) 3.8 - 9.9 K/cumm Comment:Testing performed by : [address] [address] Hgb 12.3 11.9 - 15.5 g/dL NIL[facility] Comment:Testing performed by : [address] [address] Hct 37.2 35.6 - 45.5 % [facility] Comment:Testing performed by : [address] [address] Plt 230 150 - 400 K/cumm NILSA Comment:Testing performed by : [address] [address] MPV 10.7 9.1 - 12.3 fL NILSA Comment:Testing performed by : [address] [address] RBC 3.85(L) 3.90 - 5.20 M/cumm NILSA Comment:Testing performed by : [address] [address] MCV 96.6(H) 81.3 - 96.4 fL N[facility] Comment:Testing performed by : [address] [address] MCH 31.9 27.1 - 33.3 pg NILSA Comment:Testing performed by : [address] [address] MCHC 33.1 32.3 - 35.7 g/dL NILSA Comment:Testing performed by : [address] [address] RDW CV 15.7(H) 11.1 - 14.9 % NIL[facility] Comment:Testing performed by : [address] [address] RDW SD 55.5(H) 35.7 - 48.1 fL NILSA RODRIGES Comment:Testing performed by : [address] [address] NRBC abs 0.00 0.00 - 0.01 K/cumm NILSA RODRIGES Comment:Testing performed by : [address] [address] Blood 07/12/2024 11:5 3 AM DATA GOVERNANCE ANALYST 07/12/2024 11:58 AM DATA GOVERNANCE ANALYST us Donna CUEVA LAB BLOOD ORDERABLES Final Re sult NILSA [address] [facility] Department [place] [address] * (ABNORMAL) Comprehensive metabolic panel (07/12/2024 11:53 AM DATA GOVERNANCE ANALYST) Sodium 134(L) 135 - 145 mmol/L Comment:Testing performed by : [address] [address] Potassium, pl 4.6 3.3 - 4.9 mmol/L NILSA RODRIGES Comment: HEMOLYZED: Hemolysis interferes with the above test. Testing performed by: [address] [address] Chloride 93(L) 97 - 110 mmol/L NILSA RODRIGES Comment:Testing performed by : [address] [address] CO2 28 22 - 32 mmol/L NILSA RODRIGES Comment:Testing performed by : [address] [address] Anion gap 13 2 - 15 mmol/L NILSA RODRIGES Comment:Testing performed by : [address] [address] BUN 33(H) 6 - 25 mg/dL NILSA RODRIGES Comment:Testing performed by : [address] [address] Creatinine 4.60(H) 0.60 - 1.10 mg/dL NILSA RODRIGES Comment:Testing performed by : [address] [address] Glucose 177 70 - 199 mg/dL [facility] Comment: Interpretive Data Fasting glucose >/= 126 [...] was last revised 2022. Testing performed by: [address] [address] Calcium 9.5 8.5 - 10.3 mg/dL NILSA Comment:Testing performed by : [address] [address] Bilirubin, total 0.4 0.1 - 1.2 mg/dL [facility] Comment:Testing performed by : [address] [address] Protein, pl 8.2 6.5 - 8.5 g/dL [facility] Comment:Testing performed by : [address] [address] Albumin 3.9 3.5 - 5.0 g/dL [facility] Comment:Testing performed by : [address] [address] Alk phos 95 40 - 130 Units/L [facility] Comment:Testing performed by : [address] [address] ALT 24 7 - 45 Units/L [facility] Comment: HEMOLYZED: Hemolysis interferes with the above test. Testing performed by: [address] [address] AST 26 10 - 45 Units/L [facility] Comment: HEMOLYZED: Hemolysis interferes with the above test. Testing performed by: [address] [address] Blood 07/12/2024 11:5 3 AM DATA GOVERNANCE ANALYST 07/12/2024 11:58 AM DATA GOVERNANCE ANALYST Donna CUEVA LAB BLOOD ORDERABLES Final Re sult NILSA [address] [facility] Department [place] [address] * ECG 12 lead (07/12/2024 11:48 AM DATA GOVERNANCE ANALYST) Ventricular Rate EKG/Min 77 BPM [facility] Atrial Rate 77 BPM [facility] MT-Interval (MSEC) 154 ms [facility] QRS-Interval (MSEC) 66 ms [facility] QT-Interval (MSEC) 412 ms [facility] QTc 466 ms [facility] P [place] 72 degrees [facility] R [place] 6 degrees [facility] T [place] 62 degrees [facility] Diagnosis Normal sinus rhythm Normal ECG When compared with ECG of 21-APR-2024 10:35, No significant change was found Confirmed by DIAMOND GUTIERREZ M.D. ([id number]) on 07/13/2024 9:26:23 PM [facility] 07/12/2024 11:4 8 AM DATA GOVERNANCE ANALYST 07/13/2024 9:26 PM DATA GOVERNANCE ANALYST Donna CUEVA ECG ORDERABLES Final Result Performing Organization Address [facility]/ZIP Co de Phone Number [facility] * CT Cervical Spine WO Contrast (07/12/2024 10:38 AM DATA GOVERNANCE ANALYST) Anatomical Region Laterality Modality Spine N/A Computed Tomogra phy 07/12/2024 11:0 8 AM DATA GOVERNANCE ANALYST Narrative 07/12/2024 11:13 AM DATA GOVERNANCE ANALYST EXAM DESCRIPTION: CT CERVICAL SPINE WO CONTRAST [...] Wally Hernandez M.D. RB: AMADA Report ID: [id number] Reading Location: [id number] Procedure Note Wally Hernandez MD - 07/12/2024 [...] Wally Hernandez M.D. RB: AMADA Report ID: [id number] Reading Location: [id number] Donna CUEVA IMG CT PROCEDURES Final Resul t * CT Facial Bones WO Contrast (07/12/2024 10:38 AM DATA GOVERNANCE ANALYST) Anatomical Region Laterality Modality Head and Neck N/A Computed Tomogra phy 07/12/2024 11:0 3 AM DATA GOVERNANCE ANALYST Narrative 07/12/2024 11:08 AM DATA GOVERNANCE ANALYST EXAM DESCRIPTION: CT FACIAL BONES WO CONTRAST [...] Electronically signed by Wally Hernandez M.D. RB: RB Report ID: [id number] Reading Location: [id number] Procedure Note Wally Hernandez MD - 07/12/2024 [...] Electronically signed by Wally Hernandez M.D. RB: RB Report ID: [id number] Reading Location: [id number] Donna CUEVA [facility] [place] PROCEDURES Final Resul t * CT Head WO Contrast (07/12/2024 10:38 AM DATA GOVERNANCE ANALYST) Anatomical Region Laterality Modality Head and Neck N/A Computed Tomogra phy 07/12/2024 10:5 9 AM DATA GOVERNANCE ANALYST Narrative 07/12/2024 11:03 AM DATA GOVERNANCE ANALYST EXAM DESCRIPTION: CT HEAD WO CONTRAST REASON [...] Wally Hernandez M.D. RB: AMADA Report ID: [id number] Reading Location: [id number] Procedure Note Wally Hernandez MD - 07/12/2024 [...] Wally Hernandez M.D. RB: AMADA Report ID: [id number] Reading Location: [place] [address] PROCEDURES Final Resul t * XR Shoulder Right 2 or More Views (07/12/2024 10:08 AM DATA GOVERNANCE ANALYST) Anatomical Region Laterality Modality Upper Extremities, Shoulder Right Comp uted Radiography 07/12/2024 10:1 4 AM DATA GOVERNANCE ANALYST Narrative 07/12/2024 10:15 AM DATA GOVERNANCE ANALYST EXAM DESCRIPTION: XR SHOULDER RIGHT 2 OR [...] Wally Hernandez M.D. RB: AMADA Report ID: [id number] Reading Location: [id number] Procedure Note Wally Hernandez MD - 07/12/2024 [...] Wally Hernandez M.D. RB: AMADA Report ID: [id number] Reading Location: [id number] Julio Landeros DO IMG XR PROCEDURES Final Result * XR Shoulder Left 2 or More Views (07/12/2024 10:08 AM DATA GOVERNANCE ANALYST) Anatomical Region Laterality Modality Upper Extremities, Shoulder Left Comp uted Radiography 07/12/2024 10:1 3 AM DATA GOVERNANCE ANALYST Narrative 07/12/2024 10:14 AM DATA GOVERNANCE ANALYST EXAM DESCRIPTION: XR SHOULDER LEFT 2 OR [...] Wally Hernandez M.D. RB: AMADA Report ID: [id number] Reading Location: [id number] Procedure Note Wally Hernandez MD - 07/12/2024 [...] Wally Hernandez M.D. RB: AMADA Report ID: [id number] Reading Location: [id number] us Julio Landeros DO IMG XR PROCEDURES Final Result * POCT glucose (07/12/2024 9:33 AM DATA GOVERNANCE ANALYST) Glucose, POC 164 70 - 199 mg/dL Comment:Testing performed by : [facility], [address] [place] [address]., [address] Glucose comment 1 Use This Result NILSA RODRIGES Comment:Testing performed by : [facility], [address] [place] [address]., [address] Blood 07/12/2024 9:33 AM DATA GOVERNANCE ANALYST 07/12/2024 9:33 AM DATA GOVERNANCE ANALYST us Notinfile Unknown LAB POCT ORDERABLES - DEVICE F inal Result NILSA RODRIGES [address] [facility] Department [place] [address] * Lipid panel (05/16/2024 10:14 AM DATA GOVERNANCE ANALYST) Cholesterol 160 30 - 199 mg/dL Comment: [...] 3. Sanket Jimenes et al. SAVITA Cardiol. 2019October 20;5(5):540-548. doi: 10.1001/jamacardio.2020.0013 Current Interpretive Data was [...] revised on 2018. Chol/HDL ratio 3 NILSA BJWCH Blood 05/16/2024 10:1 4 AM DATA GOVERNANCE ANALYST 05/16/2024 10:50 AM DATA GOVERNANCE ANALYST Narrative NILSA MUELLERCH - 05/16/2024 11:23 AM DATA GOVERNANCE ANALYST These lab test should be done fasting. This means do not eat or drink for at least 12 hours prior to getting your blood drawn. us Smith Gibbs MD LAB BLOOD ORDERABLES Final R esult N[facility] [address] [facility]. [place] [address] * Colonoscopy (03/01/2024 8:49 AM CDT) Anatomical Region Laterality Modality Other Narrative Procedure Note Jaya Grier MD - 03/01/2024 8:49 AM CDT [facility] END[facility] Patient Name: Sixto Chakraborty Procedure Date: 03/01/2024 8:49 AM Date of : 1950 Admit Type: Outpatient Age: 73 Gender: Female Attending MD: Jaya Grier M.D. Room: [facility] ENDOSCOPY ROOM 06 Note Status: Finalized [...] The scope was passed under direct vision.The PCF-HR110K colonoscope was introduced through theanus and advanced [...] On: 03/01/2024 8:49 AM Recognized by the [place] [employer] for promoting quality [...] taking vitamin-D. History of end-stage renal disease. Court Worker/Model: Stitcher A (S/N [id number]) CLINICAL INFORMATION: Current height: 61 inches Maximum [...] Rafaela Paulino M.D. TW: FAIZAN Report ID: [id number] Reading Location: [id number] Procedure Note Rafaela Paulino MD - 01/22/2024 EXAM DESCRIPTION: DEXA AXIAL SKELETON BONE DENSITY 1 OR MORE SITES REASON FOR STUDY: 73 y/o year old F with given history of: Post menopausal status. History of taking vitamin-D. History of end-stagerenal disease. Court Worker/Model: Hologic Horizon A (S/N [id number]) CLINICAL INFORMATION: Current height: 61 inches Maximum [...] Rafaela Paulino M.D. TW: TW Report ID: [id number] Reading Location: [place] [address] us Cherelle Corcoran MD IMG DXA PROCEDURE [...] age 40, based on guidelines of the [place] [employer] (ACR Practice Parameter for the Performance of Screening and Diagnostic Mammography) and [place] [employer]. For women [...] 19. Hep B core IgM Nonreactive Nonreactive [facility] Comment: Interpretive Data If HepB Core IgM [...] last revised on 2019. HepBsAg Nonreactive Nonreactive [facility] Blood 10/15/2023 6:50 AM CDT 10/15/2023 7:07 AM CDT Jimbo Strauss MD LAB MICROBIOLOGY - GENERAL FREDDY HALEY Final Result [facility] [address] [address] [place] [address] * (ABNORMAL) Albumin Creatinine Ratio, Urine (10/10/2022 11:39 AM CDT) Albumin Ur 3,240.2 mg/L NILSA Comment: Interpretive Data No reference range established. Current interpretive data was last revised 2018. Testing performed by: [facility], [address] [place] [address]., [address] Creatinine Ur 74.8 mg/dL NILSA RODRIGES Comment: Interpretive Data No reference range established. Current interpretive data was last revised 2018. Testing performed by: [facility], [address] [place] [address]., [address] Albumin Creatinine Ratio, Ur 4,332(H) 1 - 29 mg/g NILSA RODRIGES Comment:Testing performed by : [facility], [address] [place] [address]., [address] Urine 10/10/2022 11:3 9 AM CDT 10/10/2022 1:45 PM CDT us Markie Ryan MD LAB URINE ORDERABLES Final Re sult NILSA RODRIGES [address] [facility] Department [place] [address] from Last 3 Months or Most Recently Relevant to Health Maintenance
--- OUTSIDE RECORDS SUMMARY | 2024-09-07 10:07 | XMS_ITS | Encounter Summary ---
Author Organization [facility] Healthcare Address [address] [place] [address] Care Team Providers Care Accounts Receivable Associate Name Role Phone Cherelle Corcoran MD Primary Care Pro vider Mark Queen MD Unavailable [phone] Rudolph Welch MD Unavailable [phone] Markie Ryan MD Unavailable Jimbo Strauss MD Unavailable [phone] Jaya Grier MD Unavailable Edgardo Kauffman MD Unavailable [phone] Reason for Visit * Reason Onset Date Comments Medical Question/Miscellaneous 08/17/2024 Encounter Details Date Type Department Care Team ([facility] st Contact Info) Description 08/17/2024 Telephone [facility] Medical Group Primary Care at [address] [phone] Cherelle Corcoran MD [facility] [address] [address] Medical Question/Miscellaneous Social History Tobacco [...] materials from doctor or pharmacy Often 01/20/2024 [facility] Utilities Answer Date Recorded In the past [...] you attend chur ch or sikh services? More than 4 times per year [...] you have a drink containing alcohol? Never 07/13/2024 Q2: How many drinks containi ng alcohol do you have on a typical day when you are drinking? Patient does not drink Q3: How often do you have si x or more drinks on one occasion? Never 07/13/2024 Overall Financial Resource Strain (CARDIA) Answe r [...] a care home (including now)? No 10/30/2023 PHQ-9 Answer Date [...] file Legal Sex Female 9:03 AM TELEVISION JOURNALIST Gender Identity Female 02/08/2020 6:39 PM CDT Sexual Orientation Not on file documented as of this encounter Miscellaneous Notes * Telephone Encounter - Berenice Kirkpatrick - 08/17/2024 10:14 AM CST Medical Question/Miscellaneous Caller???s Concern: Areli patients daughter (HIPAA) called stating home health referral doesn't have a 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 listed, caller stated she's needing the 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 so she can contact them for patients fpc services, please advise. Does message need to be routed? Yes-Action Needed VISION JOURNALIST documented in this encounter Plan of Treatment Upcoming Encounters Date Type Department Care Team (Latest Contact Info) Description 09/13/2024 8:00 AM CDT Hospital Encounter [facility] [address] [place] [address] Jaya Grier MD [address] [facility] [address] [place] [address] 09/13/2024 8:00 AM CDT - 09/13/2024 8:30 AM CDT Surgery [facility] GI Lab [address] [place] [address] Jaya Grier MD [address] [facility] [address] [place] [address] ESOPHAGOGASTRODUODENOSCOPY Scheduled Procedures Name Priority Associated Diagnoses Date/Ti me ESOPHAGOGASTRODUODENOSCOPY Ulcer of esophagus without bleeding 09/13/2024 8:00 AM CDT COLONOSCOPY Iron deficiency anemia due to chronic blood loss documented as of this encounter Visit Diagnoses Not on filedocumented in this encounter Care Teams Accounts Receivable Associate Relationship Specialty Start Date End Date Cherelle Corcoran MD PCP - General Family Medicine 08/30/19 Mark Queen MD Consulting Physician Infectious Diseases 01/10/20 Rudolph Welch MD [address] [facility] [address] [place] [address] Consulting Physician Infectious Diseases 12/05/22 Markie Ryan MD [address] [facility] [address] [place] [address] Consulting Physician Nephrology 12/05/22 [place] [address] [address] Consulting Physician Nephrology 10/22/23 Jaya Grier MD [address] [facility] [address] [place] [address] Consulting Physician Gastroenterology 02/01/24 Edgardo Kauffman MD [address] [facility] [address] [place] [address] Surgeon Vascular Surgery 07/15/24 documented as of this encounter
--- OUTSIDE RECORDS SUMMARY | 2024-09-07 10:08 | XMS_ITS | Encounter Summary ---
Author Organization [facility] Healthcare Address [address] [place] [address] Care Team Providers Care Curing Oven Attendant Name Role Phone Cherelle Corcoran MD Primary Care Pro vider Mark Queen MD Unavailable [phone] Xenia Padilla LPN Unavailable Sarahy Schmidt PERFORATOR OPERATOR Unavailable Brandie Callejas MA Unavailable Unav ailable Xenia Padilla LPN Unavailable [phone] Samples, Melania Joel RN Unavailable Anam Costa LCSW Unavailable Unavailabl e Samples, Melania Joel RN Unavailable Rudolph Welch MD Unavailable Markie Ryan MD Unavailable Nadege Ramírez RN Unavailable Dulce Vega RN Unavailable Jimbo Strauss MD Unavailable [phone] Jaay Grier MD Unavailable Edgardo Kauffman MD Unavailable Encounter Details Date Type Department Care Team (Late st Contact Info) Description 12/26/2019 Telephone [facility] Nutrition and Diabetic Education 1 [facility] Room [address] [address] Anastasia Leblanc, RN Social History Tobacco Use [...] file Legal Sex Female 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 PAN 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 Gender Identity Female 02/08/2020 6:39 PM CDT Sexual Orientation Not on file documented as of this encounter Plan of Treatment Upcoming Encounters Date Type Department Care Team (Latest Contact Info) Description 09/13/2024 8:00 AM CDT Hospital Encounter [facility] GI Lab [address] [place] [address] Jaya Grier MD [facility] [address] [place] [address] 09/13/2024 8:00 AM CDT - 09/13/2024 8:30 AM CDT Surgery [facility] GI Lab [address] [place] [address] Jaya Grier MD [facility] [address] [place] [address] ESOPHAGOGASTRODUODENOSCOPY Scheduled Procedures Name Priority Associated Diagnoses Date/Ti id ESOPHAGOGASTRODUODENOSCOPY Ulcer of esophagus without bleeding 09/13/2024 8:00 AM CDT COLONOSCOPY Iron deficiency anemia due to chronic blood loss documented as of this encounter Visit Diagnoses Not on filedocumented in this encounter Additional Health Concerns Infection Onset Date Last Indicated Resolved Time MRSA 01/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 08/24/2021 08/26/2021 12/22/2021 3:05 AM C DT COVID: Suspected Comment:11/15/2021 pt is covid recovered 11/15/2021 11/15/2021 11/15/2021 3:32 PM C DT COVID: Suspected 11/15/2021 11/16/2021 11/16/2021 1:45 AM CDT Human metapneumovirus, conta ct + droplet 11/16/2021 11/16/2021 11/30/2021 3:05 AM C DT COVID: Suspected 05/08/2022 05/08/2022 05/08/2022 4:26 PM DRY PAN CHARGER COVID: Suspected 06/19/2022 06/19/2022 06/19/2022 12:37 PM DRY PAN CHARGER COVID: Suspected 08/01/2022 08/01/2022 08/01/2022 2:28 PM DRY PAN CHARGER COVID: Suspected 10/02/2022 10/02/2022 10/02/2022 8:14 PM CDT MRSA Comment:Toe 11/08/22, 12/12/22 11/08/2022 12/12/2022 06/10/2023 3:05 AM DRY PAN CHARGER COVID: Suspected 12/08/2022 12/08/2022 12/08/2022 8:17 PM CDT COVID: Suspected 07/27/2023 07/27/2023 07/28/2023 12:57 AM DRY PAN CHARGER COVID: Suspected 10/29/2023 10/30/2023 10/30/2023 10:59 AM CDT 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 12/19/2023 12/19/2023 3:58 PM CDT 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 12/29/2023 06/26/2024 3:05 AM DRY PAN CHARGER COVID: Suspected 04/19/2024 04/19/2024 04/20/2024 12:44 AM CDT COVID: Suspected 07/12/2024 07/12/2024 07/12/2024 12:39 PM DRY PAN CHARGER COVID: Suspected 07/31/2024 07/31/2024 07/31/2024 2:06 PM DRY PAN CHARGER documented as of this encounter Care Teams Curing Oven Attendant Relationship Specialty Start Date End Date Cherelle Corcoran MD PCP - General Family Medicine 08/30/19 Mark Queen MD Consulting Physician Infectious Diseases 01/10/20 Xenia Padilla LPN Manager Statistical Programming 09/19/21 09/19/21 Sarahy Schmidt LPN [address] [place] [address] [address] [place] [address] ACO Care Floor Clerk 11/27/21 12/25/21 Brandie Callejas MA Patient Chiropractic Doctor 06/20/22 06/22/22 Xenia Padilla LPN [address] [place] [address] [address] [place] [address] Manager Statistical Programming 06/24/22 06/24/22 Samples, Melania Joel RN [address] [place] [address] [address] [place] [address] Manager Statistical Programming 07/22/22 08/21/22 Anam Costa LCSW [address] [place] [address] [address] [place] [address] Cafeteria Clerk 08/08/22 02/18/23 Samples, Melania Joel RN [address] [place] [address] [address] [place] [address] Manager Statistical Programming 08/22/22 12/07/22 Rudolph Welch MD [address] [facility] [address] [place] [address] Consulting Physician Infectious Diseases 12/05/22 Markie Ryan MD [address] [facility] [address] [place] [address] Consulting Physician Nephrology 12/05/22 Nadege Ramírez RN [address] [place] [address] [address] [place] [address] Manager Statistical Programming 01/20/23 02/23/23 Dulce Vega RN [address] [place] [address] [address] [place] [address] Manager Statistical Programming 10/07/23 05/03/24 [place] [address] [facility] [address] [place] [address] Consulting Physician Nephrology 10/22/23 Jaya Grier MD [address] [facility] [address] [place] [address] Consulting Physician Gastroenterology 02/01/24 Edgardo Kauffman MD [address] [facility] [address] [place] [address] Surgeon Vascular Surgery 07/15/24 documented as of this encounter
--- OUTSIDE RECORDS SUMMARY | 2024-09-07 10:08 | XMS_ITS | Referral Summary ---
Author Organization [facility] Address [address] [place] [address] Care Team Providers Care Water Reclamation Systems Operator Name Role Phone Cherelle Corcoran MD Primary Care Pro vider Mark Queen MD Unavailable [phone] Rudolph Welch MD Unavailable Markie Ryan MD Unavailable Jimbo Strauss MD Unavailable Jaya Grier MD Unavailable Edgardo Kauffman MD Unavailable Encounters Date Type Department Care Team Description 09/01/19 25 2:15 PM CDT Office Visit [facility] Cardiology [address] [place] [address] [place] [phone] Santo Vail MD Dyspnea, unspecified type (Primary Dx) 08/23/19 25 8:20 AM BENCH ASSEMBLER BATTERY Office Visit [facility] Endocrinology Metabolism and Lipid [facility] Medical Office Building 4, [address] [place] [address] Smith Gibbs MD Type 2 diabetes mellitus with diabetic nephropathy, with long-term current use of insulin (HCC) (Primary Dx); Type 2 diabetes mellitus with diabetic neuropathy, with long-term current use of insulin (HCC); Mixed hyperlipidemia; ESRD on hemodialysis (HCC); Primary hypertension 08/18/19 25 8:15 AM BENCH ASSEMBLER BATTERY Telemedicine [facility] Behavioral Health [address] [facility] [address] [place] [phone] Adryan Swenson MD Schizoaffective disorder, bipolar type (HCC) (Primary Dx) 08/17/19 25 Telephone [facility] Primary Care at [address] [place] [phone] Cherelle Corcoran MD Medical Question/Miscellaneous 08/02/19 25 JOY ED Outreach [facility] Care Organization [address] [place] [address] Felicia Garcia MA 08/02/19 25 Nurse Triage [facility] Primary Care at [address] [place] [phone] Cherelle Corcoran MD 07/31/19 25 9:25 PM BENCH ASSEMBLER BATTERY - 07/31/19 10:27 PM BENCH ASSEMBLER BATTERY Emergency [facility] Emergency Department [address] [place] [address] Discharge Disposition: Left without being seen 07/27/19 25 Orders Only [facility] Endocrinology Metabolism and Lipid [address] [facility] Advanced Medicine 13th [place] [address] [place] [phone] Joe Ballard MD 07/21/19 25 [facility]phone [facility] at [facility] [address] [facility] [address] [place] [address] Varsha Oneill, RN 07/18/19 25 Orders Only [facility] Gastroenterology at [place] [address] [place] [phone] Jaya Grier MD Ulcer of esophagus without bleeding (Primary Dx) 07/18/19 25 2:45 PM BENCH ASSEMBLER BATTERY Office Visit [facility] Primary Care at [address] [place] [phone] Cherelle Corcoran MD Fall, subsequent encounter (Primary Dx); Neck pain; Pressure injury of buttock, stage 1, unspecified laterality 07/15/19 25 2:30 PM BENCH ASSEMBLER BATTERY - 07/15/19 25 11:59 PM BENCH ASSEMBLER BATTERY Hospital Encounter [facility] at [place] [id number] [address] ESRD (end stage renal diseas e) on dialysis (HCC) (Primary Dx) Discharge Disposition: Discharge to home or self care 07/15/19 25 10:00 AM BENCH ASSEMBLER BATTERY - 07/15/19 11:00 AM BENCH ASSEMBLER BATTERY Surgery [facility] Cardiac Learning And Development Administrator [address] [place] [address] Edgardo Kauffman MD PERMACATH EXCHANGE [66069 (CPT )] 07/15/19 9:13 AM BENCH ASSEMBLER BATTERY - 07/15/19 1:20 PM BENCH ASSEMBLER BATTERY Hospital Encounter [facility] Cardiac Learning And Development Administrator [address] [place] [address] Edgardo Kauffman MD ESRD (end stage renal disease) on dialysis (HCC) Discharge Disposition: Discharge to home or self care 07/14/19 12:35 PM BENCH ASSEMBLER BATTERY - 07/14/19 11:59 PM BENCH ASSEMBLER BATTERY Hospital Encounter [facility] Diagnostic Imaging [address] [place] [address] Discharge Disposition: Discharge to home or self care 07/14/19 12:11 PM BENCH ASSEMBLER BATTERY - 07/14/19 11:59 PM BENCH ASSEMBLER BATTERY Hospital Encounter [facility] at [address] [address] ESRD (end stage renal diseas e) on dialysis (HCC) (Primary Dx); Type 2 diabetes mellitus with diabetic neuropathy, with long-term current use of insulin (HCC); Hypertension associated with diabetes (HCC); ESRD on hemodialysis (HCC); Hyperlipidemia associated with type 2 diabetes mellitus (HCC) Discharge Disposition: Discharge to home or self care 07/13/19 Nurse Triage [facility] Primary Care at [address] [place] [phone] Cherelle Corcoran MD 07/13/19 JOY ED Outreach [facility] Care Organization [address] [place] [address] Ale Goldstein MA 07/13/19 11:03 AM BENCH ASSEMBLER BATTERY Anesthesia Event [facility] GI Lab [address] [place] [address] Larry Valdivia MD 07/13/19 9:00 AM BENCH ASSEMBLER BATTERY - 07/13/19 9:30 AM BENCH ASSEMBLER BATTERY Surgery [facility] GI Lab [address] [place] [address] Jaya Grier MD ESOPHAGOGASTRODUODENOSCOPY BIOPSY 07/13/19 8:39 AM BENCH ASSEMBLER BATTERY - 07/13/19 12:26 PM BENCH ASSEMBLER BATTERY Hospital Encounter [facility] GI Lab [address] [place] [address] Jaya Grier MD Anemia, unspecified type; Gastritis without bleeding, unspecified chronicity, unspecified gastritis type; Gastritis, presence of bleeding unspecified, unspecified chronicity, unspecified gastritis type Discharge Disposition: Discharge to home or self care 07/12/19 11:16 AM BENCH ASSEMBLER BATTERY - 07/12/19 3:44 PM BENCH ASSEMBLER BATTERY Emergency [facility] Emergency Department [address] [place] [address] Fall, initial encounter (Primary Dx); Acute cystitis without hematuria Discharge Disposition: Discharge to home or self care 07/12/19 Telephone [facility] Primary Care at [address] [phone] Cherelle Corcoran MD Medical Question/Miscellaneous 07/11/19 Nurse Triage [facility] Primary Care at [address] [phone] Cherelle Corcoran MD 07/08/19 1:00 PM BENCH ASSEMBLER BATTERY Office Visit [facility] Primary Care at [address] [phone] Cherelle Corcoran MD Altered mental status, unspecified [...] Gastroesophageal reflux disease without esophagitis; Frailty 07/07/19 1:30 PM BENCH ASSEMBLER BATTERY Office Visit [facility] Endocrinology Metabolism and Lipid [address] [place] [address] Medical Office Building [address], [address] [place] [address] Pippa Troy NP Type 2 diabetes mellitus with diabetic nephropathy, with long-term current use of insulin (HCC) (Primary Dx); Dyslipidemia; Primary hypertension 07/07/19 3:00 PM BENCH ASSEMBLER BATTERY Office Visit [facility] Medical [facility] Cardiology [address] [facility] [address] [place] [phone] Santo Vail MD Dyspnea, unspecified type (Primary Dx) 07/04/19 25 Telephone [facility] Primary Care at [address] [place] [address] Cherelle Corcoran MD JOY Questions 06/27/19 25 Nurse Triage [facility] Primary Care at [address] [place] [phone] Cherelle Corcoran MD 06/17/20 24 Orders Only [facility] Gastroenterology at [address] [place] [address] Jaya Grier MD Anemia, unspecified type (Primary Dx); Gastritis without bleeding, unspecified chronicity, unspecified gastritis type from Last 3 Months Allergies No known active allergies Medications lidocaine (ASPERCREME) 4 % adhesive patch,medicated Place 1 patch on the skin daily as needed to lower back Active polyethylene glycol (MIRALAX) 17 gram/dose bulk powder Take 17 g by mouth daily as needed (Constipation) 595 g Active FreeStyle Madhav 3 [facility] Use Madhav 3 reader to scan Madhav [...] once every 2 weeks 024 2024 Active carvediloL (COREG) 3.125 mg [...] tablet (60 mg total) by mouth nightly 12/23/2 024 Active atorvastatin (LIPITOR) 20 mg tablet Take 1 tablet (20 mg total) by mouth nightly 024 Active calcitRIOL (ROCALTROL) 0.25 mcg capsule Take 1 capsule (0.25 mcg total) by mouth 024 Active blood glucose diagnostic (Easy Touch Test Strip) stripIndications: Type 2 diabetes mellitus with diabetic neuropathy, with long-term current use of insulin ([facility]) 1 each by other route daily 100 strip [address] (PROTONIX) 40 mg EC tabletIndications :Gastroesophageal reflux disease without esophagitis TAKE 1 TABLET(40 MG) BY MOUTH TWICE DAILY 180 tablet 025 Active blood-glucose sensor (FreeStyle Madhav 3 Plus Sensor) deviceIndications :Type 2 diabetes mellitus with diabetic nephropathy, with long-term current use of insulin ([facility]) Use to continually monitor glucose, change sensor [...] use of insulin ([facility]) Use Madhav 3 reader to scan Madhav [...] 07/07/2024 Assessment & Plan (07/14/2024 2:30 PM BENCH ASSEMBLER BATTERY): Continue Lipitor Assessment & Plan (07/14/2024 8:56 AM BENCH ASSEMBLER BATTERY): Ok to restart atorvastatin, but also given [...] 11/02/2023 Assessment & Plan (07/14/2024 2:39 PM BENCH ASSEMBLER BATTERY): Patient is needing a Perma catheter exchange [...] proceed. Assessment & Plan (07/14/2024 8:51 AM BENCH ASSEMBLER BATTERY): Following with nephrology Assessment & Plan (01/06/2024 [...] 10/30/2023 Assessment & Plan (05/06/2024 7:49 AM BENCH ASSEMBLER BATTERY): Reviewed hospital discharge summary Now resolved Upcoming [...] stable Assessment & Plan (07/24/2023 1:51 PM BENCH ASSEMBLER BATTERY): Chronic/stable Parkinsonism 08/14/2022 Assessment & Plan (07/14/2024 8:54 AM BENCH ASSEMBLER BATTERY): Following with neurology, recommend reaching out to them in regards to restarting benztropine. Consider waiting until after restarts other medications given daughter reports tremors controlled off benztropine currently Assessment & Plan (11/10/2023 4:43 PM CDT): Following with neurology On cogentin Assessment & Plan (07/24/2023 1:50 PM BENCH ASSEMBLER BATTERY): Following with neurology On cogentin twice a day Assessment & Plan (01/23/2023 9:20 AM CDT): Following with neurology On cogentin twice a day Assessment & Plan (10/10/2022 10:41 AM CDT): Following with neurology On cogentin Assessment & Plan (08/14/2022 10:46 AM BENCH ASSEMBLER BATTERY): Following with neurology, reviewed note On cogentin [...] - PT/OT recommends SNF. -Plan [facility]ued[facility] R[facility] on 11/26 ? Assessment & Plan (11/24/2021 2:07 PM CDT): Deconditioning 2/2 prolonged hospitalization. Daughter reports that prior to her illness, she was independent with a walker. - PT/OT recommends SNF. -Plan Agueda Rizzo [facility] on 11/25. Assessment & Plan (11/23/2021 12:24 PM CDT): Deconditioning 2/2 prolonged hospitalization. Daughter reports that prior to her illness, she was independent with a walker. - PT/OT recommends SNF. -Plan Agueda [facility]zo, SNF on 11/25. Assessment & Plan (11/22/2021 1:34 PM CDT): Deconditioning 2/2 prolonged hospitalization. Daughter reports that prior to her illness, she was independent with a walker. - PT/OT recommends SNF. -Plan [facility]ued[facility], SNF on 11/25. Assessment & Plan (11/21/2021 [...] care Assessment & Plan (08/14/2022 10:47 AM BENCH ASSEMBLER BATTERY): Following with podiatry Assessment & Plan (04/02/2022 [...] - renal consulted regarding volume management, possible middle or intermediate school principal dialysis planning, expedite OP f/u. Serologies and urine studies ordered. ED neg, compliments neg, cryoglobulin pending, ANCA pending, HIV neg. Continued -Added metolazone 2.5mg/daily per renal 09/13- with improving swelling, Cr bump to 2.33 so held further -Transitioned to PO agents prior to DC (09/17) with ongoing clinical improvement. Goal weight 155lbs -[place], research and development technician consulted to review salt restrictions. -outpatient BMP, [...] - renal consulted regarding volume management, possible shelter dialysis planning, expedite OP f/u. Serologies and urine studies ordered. ED neg, compliments neg, cryoglobulin pending, ANCA pending, HIV neg. Continued -Added metolazone 2.5mg/daily per renal 09/13- with improving swelling, Cr bump to 2.33 so held further -Anticipate likely transition to PO agents prior to DC (?09/17) with ongoing clinical improvement. Goal weight 155lbs -Home [place] family [place], research and development technician consulted to review salt restrictions. Assessment & [...] - renal consulted regarding volume management, possible middle or intermediate school principal dialysis planning, expedite OP f/u. Serologies and urine studies ordered. -Added metolazone 2.5mg/daily per renal. -Anticipate likely transition to PO agents prior to DC with ongoing clinical improvement. Goal weight 145-150lbs -Home with family at [place], research and development technician consulted to review salt restrictions. Assessment & [...] - renal consulted regarding volume management, possible shelter dialysis planning, expedite OP f/u. Serologies and [...] - renal consulted regarding volume management, possible shelter dialysis planning, expedite OP f/u. Serologies and [...] - renal consulted regarding volume management, possible middle or intermediate school principal dialysis planning, expedite OP f/u. Assessment & [...] net neg 1/2-1L/day. -consider renal consult regarding middle or intermediate school principal dialysis planning, expedite OP f/u. Assessment & [...] net neg 1/2-1L/day. -consider renal consult regarding middle or intermediate school principal dialysis planning. Assessment & Plan (09/06/2021 10:28 [...] 08/19/2021 Assessment & Plan (07/14/2024 8:53 AM BENCH ASSEMBLER BATTERY): Following with neurology Assessment & Plan (01/05/2024 10:40 PM CDT): Follows with neurology. -continue risperidone 2mg QHS -continue benztropine 2mg daily Assessment & Plan (11/10/2023 4:37 PM CDT): Following with neurology Assessment & Plan (07/24/2023 1:50 PM BENCH ASSEMBLER BATTERY): Following with neurology Assessment & Plan (01/23/2023 9:18 AM CDT): Following with neurology Assessment & Plan (10/10/2022 10:37 AM CDT): Following with neurology, ordered MRI, # given to son to schedule Assessment & Plan (06/09/2022 3:37 PM BENCH ASSEMBLER BATTERY): Needs to reschedule with neurology Looking into halfway, but declined for [facility] for schizoaffective disorder Assessment & Plan (01/14/2022 9:05 AM CDT): Following with psychiatry Assessment & Plan (09/03/2021 3:28 PM CDT): Chronic, stable. Alert, oriented to self, current place. Continue to monitor. Clock drawing test at next interval. Consideration for Aricept. Encounter for Medicare annual wellness exam 12/21 Assessment & Plan (11/10/2023 4:42 PM CDT): Reviewed [facility] & PHQ Screening PHQ-2 Total Score (If total score is 3 or more points, staff should administer the PHQ-9): 2 Hearing/vision screening reviewed, referrals placed as needed Fall risk reviewed Reviewed medications and supplements Specialists: endocrine, nephrology, cardiology, neurology, psychiatry evidence of cognitive impairment HCM: orders placed as needed Assessment & Plan (06/09/2022 3:37 PM BENCH ASSEMBLER BATTERY): Reviewed [facility] & PHQ Screening PHQ-2 Total Score (If total score is 3 or more points, staff should administer the PHQ-9): 0 Hearing/vision screening reviewed, referrals placed as needed Fall risk reviewed Reviewed medications and supplements Specialists: endocrine, nephrology, cardiology, neurology evidence of cognitive impairment HCM: orders placed as needed Assessment & Plan (01/08/2021 3:44 PM CDT): Reviewed PM & PHQ Screening PHQ-2 Total [...] type Assessment & Plan (08/18/2024 8:44 AM BENCH ASSEMBLER BATTERY): Chronic, stable. Does not report any stephanie [...] discussed. Assessment & Plan (07/14/2024 8:54 AM BENCH ASSEMBLER BATTERY): Following with psychiatry, recommend reaching out to [...] psychiatry Assessment & Plan (07/24/2023 1:50 PM BENCH ASSEMBLER BATTERY): Following with psychiatry Assessment & Plan (01/23/2023 [...] discussed. Assessment & Plan (08/09/2021 5:42 AM BENCH ASSEMBLER BATTERY): Following with psychiatry Assessment & Plan (08/07/2021 3:28 PM BENCH ASSEMBLER BATTERY): Chronic condition, switch to Haldol and has had multiple different problems including acute kidney failure in infectious process. [facility] Confounded by delirium. Currently experiencing delirium will discontinue Haldol and return to Risperdal as previously taking. Risperdal was discontinued due to poorly-controlled diabetes. Monitor in 1 to 2 weeks. Assessment & Plan (07/03/2021 7:24 AM BENCH ASSEMBLER BATTERY): Following with psychiatry D/c risperidone, started on haldol Assessment & Plan (07/01/2021 9:16 PM BENCH ASSEMBLER BATTERY): Chronic, stable. +persistent auditory hallucinations Discontinue Risperdal [...] Reviewed all of those notes-primary care doctor, network solutions architect, food crops farm hand. The patient previously lived on her own and was observed to be hoarding. See additional problems-dementia. Evaluate again in 1 month after starting Risperdal. Iron deficiency anemia 04/02/2020 Assessment & Plan (05/06/2024 7:51 AM BENCH ASSEMBLER BATTERY): Recommend discussing IV iron with nephrology Assessment & Plan (10/02/2020 4:35 PM CDT): Continue iron Assessment & Plan (05/28/2020 1:51 PM BENCH ASSEMBLER BATTERY): Iron levels recently normalized, but still anemic, repeat today Assessment & Plan (04/16/2020 11:45 AM CDT): Recent iron within normal limits, H/H improving, continue supplementation until normalized Gastroesophageal reflux disease without esophagi tis 04/02/2020 Assessment & Plan (07/14/2024 8:56 AM BENCH ASSEMBLER BATTERY): Restart protonix Upcoming EGD Assessment & Plan (01/05/2024 10:40 PM CDT): -continue famotidine Assessment & Plan (10/02/2020 4:35 PM CDT): Continue omeprazole Assessment & Plan (07/24/2020 2:06 PM BENCH ASSEMBLER BATTERY): Recurrent symptoms off omeprazole, restart Assessment & Plan (05/28/2020 1:51 PM BENCH ASSEMBLER BATTERY): Iron levels recently normalized, but still anemic, repeat today Assessment & Plan (04/02/2020 1:26 PM CDT): Start PPI History of amputation of toe 01/19/2020 Assessment & Plan (01/08/2021 3:50 PM CDT): Stable Assessment & Plan (10/02/2020 4:35 PM CDT): Stable Assessment & Plan (04/30/2020 1:00 PM BENCH ASSEMBLER BATTERY): Stable Assessment & Plan (02/14/2020 5:15 PM CDT): Healing well Following with surgeon/wound clinic Assessment & Plan (01/19/2020 5:17 PM CDT): Has home health Following with vascular Hypertension associated with diabetes 12/13/2019 Assessment & Plan (07/14/2024 2:32 PM BENCH ASSEMBLER BATTERY): Continue carvedilol, hydralazine Assessment & Plan (07/14/2024 8:51 AM BENCH ASSEMBLER BATTERY): BP controlled today off medication Daughter reports nephrology said could restart medication, is planning to restart coreg first and monitor blood pressure prior to restarting nifedipine/hydralazine Assessment & Plan (05/06/2024 7:48 AM BENCH ASSEMBLER BATTERY): BP controlled Continue nifedipine, hold prior to [...] x1 with HD. Most recent admission at [facility] with initiation of hydralazine and nifedipine [...] amlodipine Assessment & Plan (08/03/2023 4:02 PM BENCH ASSEMBLER BATTERY): BP uncontrolled Start 5mg amlodipine Assessment & Plan (07/24/2023 1:49 PM BENCH ASSEMBLER BATTERY): Blood pressure borderline today off medications Assessment & Plan (01/23/2023 9:18 AM CDT): Blood pressure borderline low today, asymptomatic Checking labs Advised to decrease amlodipine to 5mg and monitor blood pressure Assessment & Plan (10/10/2022 10:50 AM CDT): Continue coreg 6.25mg twice a day & 40mg valsartan Assessment & Plan (08/14/2022 10:43 AM BENCH ASSEMBLER BATTERY): Blood pressure at goal, continue coreg 6.25mg twice a day Assessment & Plan (06/09/2022 3:32 PM BENCH ASSEMBLER BATTERY): Blood pressure at goal, continue coreg 3.125mg [...] day Assessment & Plan (08/05/2021 10:35 AM BENCH ASSEMBLER BATTERY): Blood pressure at goal Increase amlodipine to 10mg & d/c hydralazine per cardiology Assessment & Plan (05/28/2021 4:59 PM BENCH ASSEMBLER BATTERY): Blood pressure above goal, but previously within [...] lisinopril Assessment & Plan (08/28/2020 12:12 PM BENCH ASSEMBLER BATTERY): Blood pressure at goal Continue lisinopril Assessment & Plan (07/24/2020 2:05 PM BENCH ASSEMBLER BATTERY): Blood pressure at goal Continue lisinopril Assessment & Plan (05/28/2020 1:50 PM BENCH ASSEMBLER BATTERY): BP borderline Continue 10mg lisinopril Continue to monitor Assessment & Plan (04/30/2020 12:32 PM BENCH ASSEMBLER BATTERY): BP borderline Continue 10mg lisinopril Continue to [...] 08/30/2019 Assessment & Plan (07/14/2024 2:31 PM BENCH ASSEMBLER BATTERY): Controlled. Continue as per Endocrine and PCP Assessment & Plan (07/14/2024 8:50 AM BENCH ASSEMBLER BATTERY): Following with endocrine, reviewed note Holding insulin [...] +SSI Assessment & Plan (07/24/2023 1:49 PM BENCH ASSEMBLER BATTERY): Lab Results Component Value Date HGBA1C 8.1 [...] trulicity Assessment & Plan (08/14/2022 10:42 AM BENCH ASSEMBLER BATTERY): Following with endocrine Continue lantus, 12 units humalog TIDAC & 1.5mg trulicity Assessment & Plan (06/09/2022 3:32 PM BENCH ASSEMBLER BATTERY): Following with endocrine Home blood sugar at [...] for strict med oversight by [place] reviewed with daughter this admit. Assessment & [...] for strict med oversight by family [place] reviewed with daughter this admit. Assessment & [...] and nephropathy. Med oversight by family at [place]. Assessment & Plan (09/14/2021 12:22 PM CDT): [...] as she had discussed this with outpatient toxicologist - repeat A1c - resume home statin, not currently on feliciano due to kidney function Assessment & Plan (08/05/2021 10:35 AM BENCH ASSEMBLER BATTERY): Continue 15 units lantus twice a day Assessment & Plan (07/03/2021 7:24 AM BENCH ASSEMBLER BATTERY): Fasting blood sugar significantly improved Risperidone changed Continue current meds Continue to monitor Assessment & Plan (06/18/2021 11:22 AM BENCH ASSEMBLER BATTERY): Increase lantus to 60 units nightly, if blood sugar still above goal after 1 week split into 33 units twice a day Follow up with blood sugar via portal in 2 weeks Continue jardiance 25mg Continue trulicity 4.5mg weekly Assessment & Plan (05/28/2021 4:58 PM BENCH ASSEMBLER BATTERY): Increase lantus to 55 units nightly Continue [...] weekly Assessment & Plan (08/28/2020 1:00 PM BENCH ASSEMBLER BATTERY): DM Care Plan: Meds: Lantus - continue [...] recheck Assessment & Plan (07/24/2020 2:05 PM BENCH ASSEMBLER BATTERY): Formulary change 2/2 insurance, switched to trulicity. Will increase to 1.5mg Assessment & Plan (05/28/2020 1:50 PM BENCH ASSEMBLER BATTERY): Check a1c Sixto isn't checking blood sugar regularly, but when she is she has several >200 so I lean towards increasing if a1c>7 Assessment & Plan (04/30/2020 12:31 PM BENCH ASSEMBLER BATTERY): Blood sugar improved on 40 units basaglar [...] hospitalization, reviewed d/c summary Checking cbc today STFEANO (acute kidney injury) 11/30/2022 Osteomyelitis of great [...] was in the room. Recently treated at [facility] for PNA with prolonged course [...] was in the room. Recently treated at [facility] for PNA with prolonged course [...] was in the room. Recently treated at [facility] for PNA with prolonged course [...] was in the room. Recently treated at [facility] for PNA with prolonged course [...] was in the room. Recently treated at [facility] for PNA with prolonged course [...] was in the room. Recently treated at [facility] for PNA with prolonged course [...] was in the room. Recently treated at [facility] for PNA with prolonged course [...] was in the room. Recently treated at [facility] for PNA with prolonged course [...] was in the room. Recently treated at [facility] for PNA with prolonged course [...] was in the room. Recently treated at [facility] for PNA with prolonged course [...] 11/10/2023 Assessment & Plan (08/14/2022 10:44 AM [employer]): Continue eliquis Assessment & Plan (06/09/2022 3:36 PM [employer]): Continue eliquis Assessment & Plan (04/02/2022 6:05 [...] 10/10/2022 Assessment & Plan (08/07/2021 3:30 PM [employer]): Subacute, persistent, hospitalized recently. She is alert [...] Impression: Patient recently had MRI performed at [facility] which revealed acute osteomyelitis to the [...] 08/28/2020 Assessment & Plan (05/28/2020 1:52 PM [employer]): Encouraged to follow up with wound clinic for reassessment Assessment & Plan (04/30/2020 12:31 PM [employer]): Following with wound clinic Assessment & Plan [...] acute osteomyelitis on recent MRI performed at [facility]. She is being treated with antibiotic therapy [...] nightly Assessment & Plan (08/14/2022 10:42 AM [employer]): Continue lyrica 150mg nightly Assessment & Plan (06/09/2022 3:32 PM [employer]): Continue lyrica 150mg nightly Assessment & Plan [...] status. Assessment & Plan (05/28/2021 4:58 PM [employer]): Continue lyrica 150mg nightly Assessment & Plan [...] gabapentin Assessment & Plan (08/28/2020 1:00 PM [employer]): On gabapentin Assessment & Plan (07/24/2020 2:05 PM [employer]): Continue gabapentin Assessment & Plan (04/02/2020 1:22 [...] great toe of right foot 01/23/2023 Immunizations Immunization Administration Dates Next Due Heplisav-b [...] materials from doctor or pharmacy Often 01/20/2024 [facility] Utilities Answer Date Recorded In [...] in a intermediate (including now)? No 10/30/2023 PHQ-9 Answer Date [...] any time in the past 12 m [facility], were you homeless or living in [...] file Legal Sex Female 9:03 AM [employer] Gender Identity Female 02/08/2020 6:39 PM CDT Sexual Orientation Not on file Last Filed Vital Signs Vital Sign Reading Time Taken Comments Blood Pressure 110/56 08/31/2024 2:38 PM CDT Pulse 74 08/31/2024 2:38 PM CDT Temperature 36.3 C (97.3 F) 07/31/2024 12:52 PM [employer] Respiratory Rate 16 07/31/2024 12:52 PM [employer] Oxygen Saturation 97% 08/31/2024 2:38 PM CDT Inhaled Oxygen Concentration - - Weight 60.1 kg (132 lb 6.4 oz) 08/31/2024 2:38 P M CDT Height 157.5 cm (5' 2 ) 08/22/2024 8:51 AM [employer] Body Mass Index 24.22 08/22/2024 8:51 AM [employer] Plan of Treatment Upcoming Encounters Date Type Department Care Team (Latest Contact Info) Description 09/13/2024 8:00 AM CDT Hospital Encounter [facility] [address] [place] [address] Jaya Grier MD [phone] [facility] [address] [place] [address] 09/13/2024 8:00 AM CDT - 09/13/2024 8:30 AM CDT Surgery [facility] [address] [place] [address] Jaya Grier MD [phone] [facility] [address] [place] [address] ESOPHAGOGASTRODUODENOSCOPY Scheduled Procedures Name Priority Associated Diagnoses Date/Ti wy ESOPHAGOGASTRODUODENOSCOPY Ulcer of esophagus without bleeding 09/13/2024 8:00 AM CDT COLONOSCOPY Iron deficiency anemia due to chronic blood loss Medical Devices Implanted Type Area Clinical Trial Specialist Device Identifier Shelf Expiration Date Model / Serial / Lot [facility] [employer] Duramax Vascpak Safesheath D-Pro 15.5fr 24cm Kit Catheter [id number] - [id number] Implanted:Qty: 1 on 10/15/[address] [facility] [employer] 10/19/2025 [id number] 85 / / [id number] [facility] [employer] Duraflow Embosafe 15.5fr 24cm Basic 2 Lumen Kit Catheter [id number] - [id number] Implanted:Qty: 1 on 07/15/2024 by Edgardo Kauffman MD at [facility] Simple [employer] [facility] 08/19/2026 [id number] 15 / / [id number] Procedures Procedure Name Priority Date/Time Associated Diagnosis Comments POCT HEMOGLOBIN A1C Routine 08/22/2024 8:55 AM [employer] Type 2 diabetes mellitus with diabetic nephropathy, with long-term current use of insulin (HCC) RESPIRATORY PATHOGEN PANEL STAT 07/31 1:02 PM [employer] DIABETIC EYE EXAM Routine 07/27/2024 12:37 PM [employer] HM DIABETES EYE EXAM Routine 07/22/2024 XR CHEST 1 VIEW ED Urgent/IP Urgent 07/15/2024 1:11 PM [employer] RPL DRE CVC W/O PUMP [id number] Routine 07/15 12:40 PM [employer] ESRD (end stage renal disease) on dialysis ([facility]) XR CHEST 1 VIEW ED Urgent/IP Urgent 07/14/2024 1:16 PM [employer] EGFR STAT 07/14/2024 12:34 PM [employer] DIFFERENTIAL AUTO STAT 07/14/2024 12:34 PM [employer] BASIC METABOLIC PANEL STAT 07/14/2024 12:34 PM [employer] CBC WITH AUTO DIFFERENTIAL STAT 07/14 12:34 PM [employer] SURGICAL PATHOLOGY Routine 07/13/2024 11:10 AM [employer] Anemia, unspecified type Gastritis without bleeding, unspecified chronicity, unspecified gastritis type ESOPHAGOGASTRODUODENOSCOPY BIOPSY 07/13/2024 11:03 AM [employer] Anemia, unspecified type Gastritis without bleeding, unspecified chronicity, unspecified gastritis type EGD 07/13/2024 10:59 AM [employer] POC BLOOD GAS AND CHEMISTRIE S, VENOUS Routine 07/13/2024 10:12 AM [employer] TROPONIN T HIGH-SENSITIVITY 2-HOUR Timed 07/12/2024 1:59 PM [employer] URINALYSIS, MICROSCOPIC ONLY STAT 1:05 PM [employer] DRUGS OF ABUSE SCREEN, URINE WITHOUT CONFIRMATION STAT 07/12/2024 1:05 PM [employer] URINE CULTURE STAT 07/12/2024 1:05 PM [employer] URINALYSIS AND REFLEX TO MICROSCOPIC AND CULTURE STAT 07/12/2024 1:05 PM [employer] THYROID FUNCTION CASCADE STAT 025 11:53 AM [employer] EGFR STAT 07/12/2024 11:53 AM [employer] DIFFERENTIAL AUTO STAT 07/12/2024 11:53 AM [employer] TROPONIN T HIGH-SENSITIVITY SERIES (BASELINE, 2HR, 4HR, 6HR) STAT 07/12/2024 11:53 AM [employer] CBC WITH AUTO DIFFERENTIAL STAT 07/12 11:53 AM [employer] COMPREHENSIVE METABOLIC PANEL STAT 11:53 AM [employer] INFLUENZA A/B, RSV, AND COVID-19 PCR Routine 07/12/2024 11:53 AM [employer] ECG 12-LEAD STAT 07/12/2024 11:[address] FACIAL BONES WO CONTRAST ED 06/23 10:[address] [address] CERVICAL SPINE WO CONTRAST ED 10:38 [address] [employer] [address] HEAD WO CONTRAST ED 07/12/2024 10:38 AM [employer] XR SHOULDER RIGHT 2 OR MORE VIEWS ED 07/12/2024 10:08 AM [employer] XR SHOULDER LEFT 2 OR MORE VIEWS ED 07/12/2024 10:08 AM [employer] POCT GLUCOSE DEVICE Routine 07/12/2024 9:33 AM [employer] LIPID PANEL Routine 05/16/2024 10:14 AM [employer] Mixed hyperlipidemia COLONOSCOPY 03/01/2024 8:49 AM CDT [...] * POCT hemoglobin A1c (08/22/2024 8:55 AM [employer]) Hemoglobin A1C, POC 7.7 4.0 - 5.6 % Blood 08/22/2024 8:55 AM [employer] us Smith Gibbs MD POINT OF CARE TEST ORDERABLE S Final Result * Respiratory pathogen panel Nasopharyngeal (07/31/2024 1:02 PM [employer]) Influenza A RNA Not Detected Not Detected [...] 2 RNA Not Detected Not Detected CERNER CH Parainfluenza 3 RNA Not Detected Not Detected CERNER CH Parainfluenza 4 RNA Not Detected Not Detected CERNER B. pertussis DNA Not Detected Not Detected CERNER B. parapertussis DNA Not Detected Not Detected CERNER C. pneumoniae DNA Not Detected Not Detected CERNER M. pneumoniae DNA Not Detected Not Detected CERNER Comment: Interpretive Data The [employer] FilmArray Respiratory Panel (RP2.1) assay is a [...] assay has FDA clearance for testing of ORDERLIES TEACHER swabs. The performance characteristics of this assay have been determined by [facility]. Current interpretive data was last revised on 2021. Nasopharyngeal 07/31/2024 1: 02 PM [employer] 07/31/2024 1:05 PM [employer] Narrative NILSA - 07/31/2024 2:05 PM [employer] Is the Patient experiencing symptoms consistent with COVID?->Yes Surveillance testing for transplant patient?->No Lucy Lucero MD LAB MICROBIOLOGY - [facility] ORDERABLES Final Result Performing Organization Address City/State/[facility] Co de Phone Number NILSA [address] Department [place] [address] * Diabetic Eye Exam (07/27/2024 12:37 PM [employer]) Historical Provider HEALTH MAINTENANCE Final Result * HM DIABETES EYE EXAM (07/22/2024) Historical Provider HEALTH MAINTENANCE Final Result * XR Chest 1 View (07/15/2024 1:11 PM [employer]) Anatomical Region Laterality Modality Body, Chest N/A Computed Radiogr aphy 07/15/2024 1:35 PM [employer] Narrative 07/15/2024 1:36 PM [employer] EXAM DESCRIPTION: XR CHEST 1 VIEW REASON [...] Yosef Lindo D.O. PS T: Report ID: [id number] Reading Location: [id number] Procedure Note Yosef Lindo, DO - 07/15/2024 [...] Yosef Lindo D.O. PS T: Report ID: [id number] Reading Location: [id number] Edgardo Kauffman MD IMG XR PROCEDURES Final Re sult * RPL DRE CVC W/O PUMP [id number] (07/15/2024 12:40 PM [employer]) Anatomical Region Laterality Modality X-Ray Angiograph y Narrative 07/15/2024 12:45 PM [employer] Please see OpNote for result. Edgardo Kauffman MD CV CARDIAC CATH PROCEDURES Final Result * XR Chest 1 View (07/14/2024 1:16 PM [employer]) Anatomical Region Laterality Modality Body, Chest N/A Computed Radiogr aphy 07/14/2024 1:20 PM [employer] Narrative 07/14/2024 1:22 PM [employer] EXAM DESCRIPTION: XR CHEST 1 VIEW REASON [...] Salvador Villa M.D. KR T: Report ID: [id number] Reading Location: [id number] Procedure Note Salvador Villa MD - 07/14/2024 [...] Salvador Villa M.D. KR T: Report ID: [id number] Reading Location: [id number] Edgardo Kauffman MD IMG XR PROCEDURES Final Re sult * (ABNORMAL) eGFR (07/14/2024 12:34 PM [employer]) eGFR 7(L) >=60 mL/min/1. 73 m2 Comment: [...] reviewed 2021. Blood 07/14/2024 12:3 4 PM [employer] 07/14/2024 12:41 PM [employer] Edgardo Kauffman MD LAB BLOOD ORDERABLES Final Result NILSA [address] [facility] Department [place] [address] * (ABNORMAL) Differential, auto (07/14/2024 12:34 PM [employer]) Neutrophil abs 7.8(H) 1.5 - 6.5 K/cumm Imm gran abs 0.0 0.0 - 0.1 K/cumm [facility] Lymphocyte abs 1.5 0.8 - 3.3 K/cumm [facility] Monocyte abs 0.5 0.2 - 0.8 K/cumm [facility] Eosinophil abs 0.2 0.0 - 0.5 K/cumm [facility] Basophil abs 0.0 0.0 - 0.1 K/cumm [facility] Neutrophil pct 78.1 % [facility] Comment: Interpretive Data Percent cell count reference ranges are not reported, since discordance with absolute values may lead to misinterpretation of CBC data. Current Interpretive Data was last revised on 2017. Imm gran pct 0.4 % [facility] Comment: Interpretive Data Percent cell count reference ranges are not reported, since discordance with absolute values may lead to misinterpretation of CBC data. Current Interpretive Data was last revised on 2017. Lymphocyte pct 14.8 % [facility] Comment: Interpretive Data Percent cell count reference ranges are not reported, since discordance with absolute values may lead to misinterpretation of CBC data. Current Interpretive Data was last revised on 2017. Monocyte pct 4.7 % [facility] Comment: Interpretive Data Percent cell count reference ranges are not reported, since discordance with absolute values may lead to misinterpretation of CBC data. Current Interpretive Data was last revised on 2017. Eosinophil pct 1.6 % [facility] Comment: Interpretive Data Percent cell count reference ranges are not reported, since discordance with absolute values may lead to misinterpretation of CBC data. Current Interpretive Data was last revised on 2017. Basophil pct 0.4 % [facility] Comment: Interpretive Data Percent cell count reference ranges are not reported, since discordance with absolute values may lead to misinterpretation of CBC data. Current Interpretive Data was last revised on 2017. Blood 07/14/2024 12:3 4 PM [employer] 07/14/2024 12:41 PM [employer] Edgardo Kauffman MD LAB BLOOD ORDERABLES Final Result Performing Organization Address [facility] Co de Phone Number NILSA [address] [address] * (ABNORMAL) CBC with auto differential (07/14/2024 12:34 PM [employer]) [facility] WBC 9.9 3.8 - 9.9 K/cumm Hgb 11.6(L) 11.9 - 15.5 g/dL [facility] Hct 35.3(L) 35.6 - 45.5 % [facility] Plt 241 150 - 400 K/cumm [facility] MPV 11.0 9.1 - 12.3 fL [facility] RBC 3.63(L) 3.90 - 5.20 M/cumm [facility] MCV 97.2(H) 81.3 - 96.4 fL [facility] MCH 32.0 27.1 - 33.3 pg [facility] MCHC 32.9 32.3 - 35.7 g/dL [facility] RDW CV 15.4(H) 11.1 - 14.9 % [facility] RDW SD 54.8(H) 35.7 - 48.1 fL [facility] NRBC abs 0.00 0.00 - 0.01 K/cumm [facility] Blood 07/14/2024 12:3 4 PM [employer] 07/14/2024 12:41 PM [employer] Edgardo Kauffman MD LAB BLOOD ORDERABLES Final Result Performing Organization Address [facility] Co de Phone Number NILSA [address] [place] [address] * (ABNORMAL) Basic metabolic panel (07/14/2024 12:34 PM [employer]) [facility] Sodium 138 135 - 145 mmol/L Potassium, pl 4.1 3.3 - 4.9 mmol/L [facility] Comment:Hemolyzed; Potassium value may be falsely elevated by as much as 1.0 mmol/L. Suggest redraw and reanalysis. Chloride 100 97 - 110 mmol/L [facility] CO2 25 22 - 32 mmol/L [facility] Anion gap 13 2 - 15 mmol/L [facility] BUN 51(H) 6 - 25 mg/dL [facility] Creatinine 6.22(H) 0.60 - 1.10 mg/dL [facility] Glucose 155 70 - 199 mg/dL [facility] Comment: Interpretive Data Fasting glucose [...] 2022. Calcium 9.4 8.5 - 10.3 mg/dL [facility] Blood 07/14/2024 12:3 4 PM [employer] 07/14/2024 12:41 PM [employer] us Edgardo Kauffman MD LAB BLOOD ORDERABLES Final Result [address] Department [place] [address] * Surgical pathology (07/13/2024 11:10 AM [employer]) Tissue (Duodenum, Biopsy) 07/13/2024 11:10 AM [employer] Tissue (Gastric/Stomach biopsy) 07/13/2024 11:11 AM [employer] Tissue (Gastric/Stomach biopsy) 07/13/2024 11:11 AM [employer] Tissue (Esophageal biopsy) 07/13/2024 11:13 AM [employer] Narrative PATHOLOGY [facility] - 07/14/2024 1:59 PM [employer] [facility] Department of Pathology [address] [place] [address] Note to Patients: This report may contain [...] : 1950 (Age: 73) Gender: F Address: [address] [place] [address] [facility] [id number] Service: Gastro Location: Patient Type: [facility] OUTPATIENT Taken: 07/13/2024 Received: 07/13/2024 Accessioned: 07/13/2024 [...] cm. Entirely submitted. Labeled D1. Jar 0. [facility]/07/13/2024 13:31 CAMILA Johnson, PA (ASCP) Microscopic slide review and interpretation for this case was performed at [facility], Department of Surgical Pathology, [address] [facility], [place] [id number], [place] [address] CLIA # [id number] us Jaya Grier MD LAB PATHOLOGY ORDERABLES Final R esult PATHOLOGY [facility] * EGD (07/13/2024 10:59 AM [employer]) Anatomical Region Laterality Modality Other Narrative Procedure Note Jaya Grier MD - 07/13/2024 10:[address] [facility] Patient Name: Sixto Chakraborty Procedure Date: 07/13/2024 10:59 AM Date of : 1950 Admit Type: Outpatient Age: 73 Gender: Female Attending MD: Jaya Grier M.D. Room: [facility] ENDOSCOPY ROOM 06 Note Status: Finalized Procedure: [...] On: 07/13/2024 10:59 AM Recognized by the [employer] for promoting quality in endoscopy Jaya Grier MD ENDOSCOPY PROCEDURES Final Resul t * (ABNORMAL) POC Blood Gas and Chemistries, Venous - (07/13/2024 10:12 AM [employer]) pH,chris POC 7.40 7.32 - 7.43 pCO2, chris POC 49 40 - 50 mmHg [facility] pO2,chris POC 36 mmHg [facility] Comment: Interpretive Data No reference range established. Current interpretive data was last revised 2020. HCO3, chris (Calc) POC 30 20 - 30 mmol/L [facility] Base excess, chris POC 4 mmol/L [facility] Comment: Interpretive Data No reference range established. Current interpretive data was last revised 2020. Hemoglobin, chris POC 13.9 11.9 - 15.5 g/dL [facility] Hematocrit, hcris POC 41.0 35.6 - 45.5 % [facility] Sodium, chris POC 134(L) 135 - 145 mmol/L [facility] Potassium, chris POC 4.6 3.3 - 4.9 mmol/L [facility] Comment: Interpretive Data This method is not able to assess for hemolysis, which may falsely increase potassium concentrations. If further testing is needed to evaluate this result, consider in-laboratory plasma potassium. Current Interpretive Data was last revised on 2022. Glucose, chris POC 145 70 - 199 mg/dL [facility] Ionized Calcium, chris POC 4.70 4.50 - 5.10 mg/dL NILSA Blood 07/13/2024 10:1 2 AM [employer] 07/13/2024 10:12 AM [employer] Jaya Grier MD LAB POCT ORDERABLES - DEVICE Fin al Result Performing Organization Address [facility]/ZIP Co de Phone Number [facility] [address] [place] [address] * (ABNORMAL) Troponin T high-sensitivity 2-hour (07/12/2024 1:59 PM [employer]) Trop T hs 63(H) <=14 ng/L Comment: Interpretive Data For further hscTnT resources including the diagnostic algorithm and an aid in interpretation, copy and paste this link: https://nrl.testcatalog.org/show/hsTrop Current Interpretive Data last revised 2020. Testing performed by: [address] [address] Trop T hs delta -5 ng/L NILSA Comment:Testing performed by : [address] [address] Trop T hs interp Equivocal NILSA Comment:Testing performed by : [address] [address] Blood 07/12/2024 1:59 PM [employer] 07/12/2024 2:20 PM [employer] Donna CUEVA LAB BLOOD ORDERABLES Final Re sult [facility] [address] [place] [address] * (ABNORMAL) Urinalysis reflex to microscopic and culture Urine (07/12/2024 1:05 PM [employer]) Color, ur Mikayla Yellow Comment:Testing performed by : [address] [address] Clarity, ur Turbid(A) Clear NILSA Comment:Testing performed by : [address], [place]., [address] Specific gravity, ur 1.006 1.003 - 1.030 NILSA Comment:Testing performed by : [address] [address] pH, urine 6.0 NILSA Comment: Interpretive Data U rine pH is affected by diet, medications, systemic acid-base disturbances, and renal tubular function. pH may affect urinary stone formation. For example, urine pH below 6.0 may help reduce the tendency for calcium phosphate stones and pH greater than 6.0 may reduce the tendency for uric acid stone formation. Source: [facility] [employer] Current Interpretive Data was last revised on 2017 Testing performed by: [address] [address] Protein, ur ql 2+(A) Negative NILSA Comment:Testing performed by : [address] [address] Glucose, ur ql 1+(A) Negative NILSA Comment:Testing performed by : [address] [address] Ketones, ur Negative Negative NILSA Comment:Testing performed by : [address] [address] Bilirubin, ur Negative Negative NILSA Comment:Testing performed by : [address] [address] Blood, ur 2+(A) Negative NILSA Comment:Testing performed by : [address] [address] Urobilinogen, ur <2.0 <2.0 mg/dL NILSA Comment:Testing performed by : [address] [address] Nitrite, ur Negative Negative NILSA Comment:Testing performed by : [address] [address] Leukocyte esterase, ur 4+(A) Negative NILSA RODRIGES Comment:Testing performed by : [facility], [address] [place] [address]., [address] UA reflex comment Reflex to microscopic UA will be performed. NILSA RODRIGES Comment:Testing performed by : [facility], [address] [place] [address]., [address] Urine 07/12/2024 1:05 PM [employer] 07/12/2024 1:09 PM [employer] us Donna CUEVA LAB MICROBIOLOGY - GENERAL OR DERABLES Final Result NILSA RODRIGES [address] [facility] Department [place] [address] * Drugs of Abuse Screen, Urine without Confirmation (07/12/2024 1:05 PM [employer]) Amphetamine, ur Not Detected CutOff 500ng/mL Comment: Interpretive Data - Amphetamines: Samples containing greater than 500 ng/mL d-methamphetamine or other cross-reacting amphetamine compounds are reported as positive. Amphetamine immunoassays are subject to significant false positive rates due to cross-reactivity of non-amphetamine drugs. Confirmatory testing required for definitive results. Current Interpretive Data was last reviewed 2023. Testing performed by: [address] [address] Barbiturates, ur Not Detected CutOff 200ng/mL NILSA RODRIGES Comment: Interpretive Data - Barbiturates: Samples containing greater than 200 ng/mL secobarbital or other cross-reacting barbiturate compounds are reported as positive. False positive and false negative results are possible. Confirmatory testing required for definitive results. Current Interpretive Data was last reviewed 2023. Testing performed by: [address] [address] Benzodiazepines, ur Not Detected CutOff 100ng/mL NILSA RODRIGES Comment: Interpretive Data - Benzodiazepines: Samples containing greater than 100 ng/mL nordiazepam or other cross-reacting compounds are reported as positive. False positive and false negative results are possible. Confirmatory testing required for definitive results. Current Interpretive Data was last reviewed 2023. Testing performed by: [address] [address] Cannabinoids, ur Not Detected CutOff 50 ng/mL [facility] Comment: Interpretive Data - Cannabinoids: Samples containing greater than 50 ng/mL delta-9 THC -COOH or other cross- reacting compounds are reported as positive. False positive and false negative results are possible. Confirmatory testing required for definitive results. Current Interpretive Data was last reviewed 2023. Testing performed by: [address] [address] Cocaine, ur Not Detected CutOff 150ng/mL [facility] Comment: Interpretive Data - Cocaine: Samples containing greater than 150 ng/mL benzoylecgonine or other cross- reacting compounds are reported as positive. False positive and false negative results are possible. Confirmatory testing required for definitive results. Current Interpretive Data was last reviewed 2023. Testing performed by: [address] [address] Fentanyl, Ur Not Detected Cutoff 1 ng/mL [facility] Comment: Interpretive Data - Fentanyl: Samples containing greater than 1 ng/mL fentanyl or other cross-reacting fentanyl compounds are reported as positive. False positive and false negative results are possible. Confirmatory testing required for definitive results. Current Interpretive Data was last reviewed 2023. Testing performed by: [address] [address] Methadone, ur Not Detected CutOff 300ng/mL [facility] Comment: Interpretive Data - Methadone: Samples containing greater than 300 ng/mL d,l-methadone or other cross-reacting compounds are reported as positive. False positive and false negative results are possible. Confirmatory testing required for definitive results. Current Interpretive Data was last reviewed 2023. Testing performed by: [address] [address] Opiates, ur Not Detected CutOff 300ng/mL [facility] Comment: Interpretive Data - Opiates: Samples containing greater than 300 ng/mL morphine or other cross-reacting compounds are reported as positive. False positive and false negative results are possible. Confirmatory testing required for definitive results. Current Interpretive Data was last reviewed 2023. Testing performed by: [address] [address] Oxycodone, ur Not Detected CutOff 100ng/mL [facility] Comment: Interpretive Data - Oxycodone: Samples containing greater than 100 ng/mL oxycodone or other cross-reacting compounds are reported as positive. False positive and false negative results are possible. Confirmatory testing required for definitive results. Current Interpretive Data was last reviewed 2023. Testing performed by: [address] [address] Phencyclidine, ur Not Detected CutOff 25 ng/mL [facility] Comment: Interpretive Data - Phencyclidine: Samples containing greater than 25 ng/mL phencyclidine or other cross-reacting compounds are reported as positive. False positive and false negative results are possible. Confirmatory testing required for definitive results. Current Interpretive Data was last reviewed 2023. Testing performed by: [address] [address] Urine Creatinine 74 mg/dL [facility] Comment: Interpretive Data Urine Creatinine: < 10 mg/dL is extremely dilute = or > 10 but < 20 mg/dL is dilute = or > 20 mg/dL is normal Current Interpretive Data was last revised on 2017. Testing performed by: [address] [address] Urine 07/12/2024 1:05 PM [employer] 07/12/2024 1:09 PM [employer] Narrative [facility] - 07/12/2024 1:31 PM [employer] Drug of Abuse screening is performed by immunoassay for medical purposes only. This is not to be used for Pain Management purposes. us Donna CUEVA LAB URINE ORDERABLES Final Re sult NILSA [address] [facility] Department [place] [address] * (ABNORMAL) Urinalysis, microscopic only (07/12/2024 1:05 PM [employer]) WBC, ur >50(A) 0 - 5 /HPF Comment:Testing performed by : [address] [address] RBC, ur 11-20(A) 0 - 2 /HPF [facility] Comment:Testing performed by : [address] [address] Bacteria, ur 4+(A) [facility] Comment:Testing performed by : [address] [address] Culture Reflex Comment Reflex to urine culture will be performed. NILSA Comment:Testing performed by : [address] [address] Urine 07/12/2024 1:05 PM [employer] 07/12/2024 1:09 PM [employer] us Donna CUEVA LAB URINE ORDERABLES Final Re sult NILSA RODRIGES [address] [facility] Department of Laboratories [place], [place] [id number] * (ABNORMAL) Urine culture Urine (07/12/2024 1:05 PM [employer]) Report Final Report: Greater than or equal to 100,000 colonies/mL of Escherichia coli (.) Comment:Testing performed by : [facility], [address] [place]., [address] Organism ESCHERICHIA COLI NILSA Urine 07/12/2024 1:05 PM [employer] 07/12/2024 3:03 PM [employer] Narrative NILSA - 07/14/2024 2:20 PM [employer] Urine culture reflexed based upon urinalysis results. Testing performed by [facility] Laboratory ([phone]) Organism Antibiotic Method Susceptibility Escherichia coli Ampicillin [...] - GENERAL OR DERABLES Final Result NILSA [address] [facility] Department [place] [address] * (ABNORMAL) Troponin T high-sensitivity series (baseline, 2hr, 4hr, 6hr) (07/12/2024 11:53 AM [employer]) Pathologist [facility] Trop T hs 68(H) <=14 ng/L Comment: REDRAW: HEMOLYZED SPECIMEN Interpretive Data For further hscTnT resources including the diagnostic algorithm and an aid in interpretation, copy and paste this link: [email or web address].[email or web address].org/show/[email or web address] Current Interpretive Data last revised 2020. Testing performed by: [address] [address] Blood 07/12/2024 11:5 3 AM [employer] 07/12/2024 11:58 AM [employer] Donna CUEVA LAB BLOOD ORDERABLES Final Re sult NILSA [address] [facility] Department [place] [address] * Influenza A/B, RSV, and COVID-19 PCR Nasopharyngeal (07/12/2024 11:53 AM [employer]) [facility] COVID-19 RNA Negative Negative Comment:Testing performed by : [address] [address] Influenza A RNA Negative Negative NILSA Comment:Testing performed by : [address] [address] Influenza B RNA Negative Negative NILSA Comment:Testing performed by : [address] [address] RSV RNA Negative Negative NILSA Comment: Interpretive data: Testing performed by [facility]. This test is performed using the [employer] Xpress CoV-2/Flu/RSV plus assay. This is a multiplex, real-time reverse transcriptase PCR assay intended for the qualitative detection of nucleic acid from SARS-CoV-2, influenza A, influenza B, and respiratory syncytial virus. This assay has been cleared by the [place] Food and Drug administration. The performance characteristics have been verified by the [facility]. Results must be considered in the clinical context, and a negative result does not rule out infection. Interpretive Data last revised 2023 Testing performed by: [facility], [address] [place] [address]., [address] Nasopharyngeal 07/12/2024 11 :53 AM [employer] 07/12/2024 11:58 AM [employer] Narrative NILSA - 07/12/2024 12:38 PM [employer] Is the Patient experiencing symptoms consistent with COVID?->Unknown Donna CUEVA LAB MICROBIOLOGY - GENERAL OR DERABLES Final Result NILSA [address] [facility] Department [place] [address] * (ABNORMAL) eGFR (07/12/2024 11:53 AM [employer]) eGFR 10(L) >=60 mL/min/1. 73 m2 Comment: [...] was last reviewed 2021. Testing performed by: [facility], [address] [place] [address]., [address] Blood 07/12/2024 11:5 3 AM [employer] 07/12/2024 11:58 AM [employer] us Donna CUEVA LAB BLOOD ORDERABLES Final Re sult NILSA [address] [facility] Department [place] [address] * (ABNORMAL) Differential, auto (07/12/2024 11:53 AM [employer]) Neutrophil abs 9.2(H) 1.5 - 6.5 K/cumm Comment:Testing performed by : [address] [address] Imm gran abs 0.1 0.0 - 0.1 K/cumm NILSA Comment:Testing performed by : [address] [address] Lymphocyte abs 1.5 0.8 - 3.3 K/cumm N[facility] Comment:Testing performed by : [address] [address] Monocyte abs 0.5 0.2 - 0.8 K/cumm NILSA Comment:Testing performed by : [address] [address] Eosinophil abs 0.1 0.0 - 0.5 K/cumm NILSA Comment:Testing performed by : [address] [address] Basophil abs 0.0 0.0 - 0.1 K/cumm [facility] Comment:Testing performed by : [address] [address] Neutrophil pct 81.0 % [facility] Comment: Interpretive Data Percent cell count reference ranges are not reported, since discordance with absolute values may lead to misinterpretation of CBC data. Current Interpretive Data was last revised on 2017. Testing performed by: [address] [address] Imm gran pct 0.4 % [facility] Comment: Interpretive Data Percent cell count reference ranges are not reported, since discordance with absolute values may lead to misinterpretation of CBC data. Current Interpretive Data was last revised on 2017. Testing performed by: [address] [address] Lymphocyte pct 13.4 % [facility] Comment: Interpretive Data Percent cell count reference ranges are not reported, since discordance with absolute values may lead to misinterpretation of CBC data. Current Interpretive Data was last revised on 2017. Testing performed by: [address] [address] Monocyte pct 4.2 % [facility] Comment: Interpretive Data Percent cell count reference ranges are not reported, since discordance with absolute values may lead to misinterpretation of CBC data. Current Interpretive Data was last revised on 2017. Testing performed by: [address] [address] Eosinophil pct 0.6 % [facility] Comment: Interpretive Data Percent cell count reference ranges are not reported, since discordance with absolute values may lead to misinterpretation of CBC data. Current Interpretive Data was last revised on 2017. Testing performed by: [address] [address] Basophil pct 0.4 % [facility] Comment: Interpretive Data Percent cell count reference ranges are not reported, since discordance with absolute values may lead to misinterpretation of CBC data. Current Interpretive Data was last revised on 2017. Testing performed by: [address] [address] Blood 07/12/2024 11:5 3 AM [employer] 07/12/2024 11:58 AM [employer] us Donna CUEVA LAB BLOOD ORDERABLES Final Re sult NILSA RODRIGES [address] [facility] Department [place] [address] * Thyroid Function [place] (07/12/2024 11:53 AM [employer]) TSH 1.22 0.30 - 4.20 mcIUnit/mL Comment:Testing performed by : [address] [address] Blood 07/12/2024 11:5 3 AM [employer] 07/12/2024 11:58 AM [employer] us Donna CUEVA LAB BLOOD ORDERABLES Final Re sult NILSA [address] [facility] Department [place] [address] * (ABNORMAL) CBC with auto differential (07/12/2024 11:53 AM [employer]) WBC 11.3(H) 3.8 - 9.9 K/cumm Comment:Testing performed by : [address] [address] Hgb 12.3 11.9 - 15.5 g/dL [facility] Comment:Testing performed by : [address] [address] Hct 37.2 35.6 - 45.5 % [facility] Comment:Testing performed by : [address] [address] Plt 230 150 - 400 K/cumm NIL[facility] Comment:Testing performed by : [address] [address] MPV 10.7 9.1 - 12.3 fL [facility] Comment:Testing performed by : [address] [address] RBC 3.85(L) 3.90 - 5.20 M/cumm NIL[facility] Comment:Testing performed by : [address] [address] MCV 96.6(H) 81.3 - 96.4 fL [facility] Comment:Testing performed by : [address] [address] MCH 31.9 27.1 - 33.3 pg NILSA RODRIGES Comment:Testing performed by : [address] [address] MCHC 33.1 32.3 - 35.7 g/dL NILSA RODRIGES Comment:Testing performed by : [address] [address] RDW CV 15.7(H) 11.1 - 14.9 % NILSA RODRIGES Comment:Testing performed by : [address] [address] RDW SD 55.5(H) 35.7 - 48.1 fL NILSA RODRIGES Comment:Testing performed by : [address] [address] NRBC abs 0.00 0.00 - 0.01 K/cumm NILSA RODRIGES Comment:Testing performed by : [address] [address] Blood 07/12/2024 11:5 3 AM [employer] 07/12/2024 11:58 AM [employer] us Donna CUEVA LAB BLOOD ORDERABLES Final Re sult NILSA [facility] Department [place] [address] * (ABNORMAL) Comprehensive metabolic panel (07/12/2024 11:53 AM [employer]) Sodium 134(L) 135 - 145 mmol/L Comment:Testing performed by : [address] [address] Potassium, pl 4.6 3.3 - 4.9 mmol/L NILSA RODRIGES Comment: HEMOLYZED: Hemolysis interferes with the above test. Testing performed by: [address] [address] Chloride 93(L) 97 - 110 mmol/L NILSA Comment:Testing performed by : [address] [address] CO2 28 22 - 32 mmol/L NILSA RODRIGES Comment:Testing performed by : [address] [address] Anion gap 13 2 - 15 mmol/L NILSA RODRIGES Comment:Testing performed by : [address] [address] BUN 33(H) 6 - 25 mg/dL [facility] Comment:Testing performed by : [address] [address] Creatinine 4.60(H) 0.60 - 1.10 mg/dL [facility] Comment:Testing performed by : [address] [address] Glucose 177 70 - 199 mg/dL [facility] Comment: Interpretive Data Fasting glucose [...] was last revised 2022. Testing performed by: [address] [address] Calcium 9.5 8.5 - 10.3 mg/dL [facility] Comment:Testing performed by : [address] [address] Bilirubin, total 0.4 0.1 - 1.2 mg/dL [facility] Comment:Testing performed by : [address] [address] Protein, pl 8.2 6.5 - 8.5 g/dL [facility] Comment:Testing performed by : [address] [address] Albumin 3.9 3.5 - 5.0 g/dL [facility] Comment:Testing performed by : [address] [address] Alk phos 95 40 - 130 Units/L [facility] Comment:Testing performed by : [address] [address] ALT 24 7 - 45 Units/L [facility] Comment: HEMOLYZED: Hemolysis interferes with the above test. Testing performed by: [address] [address] AST 26 10 - 45 Units/L [facility] Comment: HEMOLYZED: Hemolysis interferes with the above test. Testing performed by: [facility], [address] [place] [address], [place]., [address] Blood 07/12/2024 11:5 3 AM [employer] 07/12/2024 11:58 AM [employer] Donna CUEVA LAB BLOOD ORDERABLES Final Re sult NILSA [address] [facility] Department [place] [address] * ECG 12 lead (07/12/2024 11:48 AM [employer]) Ventricular Rate EKG/Min 77 BPM [facility] Atrial Rate 77 BPM [facility] SD-Interval (MSEC) 154 ms [facility] QRS-Interval (MSEC) 66 ms [facility] QT-Interval (MSEC) 412 ms [facility] QTc 466 ms [facility] P [place] 72 degrees [facility] R [place] 6 degrees [facility] T [place] 62 degrees [facility] Diagnosis Normal sinus rhythm Normal ECG When compared with ECG of 21-APR-2024 10:35, No significant change was found Confirmed by DIAMOND GUTIERREZ M.D. ([id number]) on 07/13/2024 9:26:23 PM [facility] 07/12/2024 11:4 8 AM [employer] 07/13/2024 9:26 PM [employer] Donna CUEVA ECG ORDERABLES Final Result Performing Organization Address City/[facility]/ZIP Co de Phone Number [facility] [employer] [facility] * CT Cervical Spine WO Contrast (07/12/2024 10:38 AM [employer]) Anatomical Region Laterality Modality Spine N/A Computed Tomogra phy 07/12/2024 11:0 8 AM [employer] Narrative 07/12/2024 11:13 AM [employer] EXAM DESCRIPTION: CT CERVICAL SPINE WO CONTRAST [...] Wally Hernandez M.D. RB: AMADA Report ID: [id number] Reading Location: [id number] Procedure Note Wally Hernandez MD - 07/12/2024 [...] Wally Hernandez M.D. RB: AMADA Report ID: [id number] Reading Location: [place] [address] PROCEDURES Final Resul t * CT Facial Bones WO Contrast (07/12/2024 10:38 AM [employer]) Anatomical Region Laterality Modality Head and Neck N/A Computed Tomogra phy 07/12/2024 11:0 3 AM [employer] Narrative 07/12/2024 11:08 AM [employer] EXAM DESCRIPTION: CT FACIAL BONES WO CONTRAST [...] Wally Hernandez M.D. RB: AMADA Report ID: [id number] Reading Location: [place] [address] Procedure Note Wally Hernandez MD - 07/12/2024 [...] Wally Hernandez M.D. RB: AMADA Report ID: [id number] Reading Location: [place] [address] PROCEDURES Final Resul t * CT Head WO Contrast (07/12/2024 10:38 AM [employer]) Anatomical Region Laterality Modality Head and Neck N/A Computed Tomogra phy 07/12/2024 10:5 9 AM [employer] Narrative 07/12/2024 11:03 AM [employer] EXAM DESCRIPTION: CT HEAD WO CONTRAST REASON [...] Wally Hernandez M.D. RB: AMADA Report ID: [id number] Reading Location: [id number] Procedure Note Wally Hernandez MD - 07/12/2024 [...] Wally Hernandez M.D. RB: AMADA Report ID: [id number] Reading Location: [id number] Donna CUEVA IMG CT PROCEDURES Final Resul t * XR Shoulder Right 2 or More Views (07/12/2024 10:08 AM [employer]) Anatomical Region Laterality Modality Upper Extremities, Shoulder Right Comp uted Radiography 07/12/2024 10:1 4 AM [employer] Narrative 07/12/2024 10:15 AM [employer] EXAM DESCRIPTION: XR SHOULDER RIGHT 2 OR [...] Wally Hernandez M.D. RB: AMADA Report ID: [id number] Reading Location: [id number] Procedure Note Wally Hernandez MD - 07/12/2024 [...] Wally Hernandez M.D. RB: AMADA Report ID: [id number] Reading Location: [id number] us Julio Landeros DO IMG XR PROCEDURES Final Result * XR Shoulder Left 2 or More Views (07/12/2024 10:08 AM [employer]) Anatomical Region Laterality Modality Upper Extremities, Shoulder Left Comp uted Radiography 07/12/2024 10:1 3 AM [employer] Narrative 07/12/2024 10:14 AM [employer] EXAM DESCRIPTION: XR SHOULDER LEFT 2 OR [...] Wally Hernandez M.D. RB: AMADA Report ID: [id number] Reading Location: [id number] Procedure Note Wally Hernandez MD - 07/12/2024 [...] Wally Hernandez M.D. RB: AMADA Report ID: [id number] Reading Location: [id number] us Julio Landeros DO IMG XR PROCEDURES Final Result * POCT glucose (07/12/2024 9:33 AM [employer]) Glucose, POC 164 70 - 199 mg/dL Comment:Testing performed by : [address] [address] Glucose comment 1 Use This Result NILSA RODRIGES Comment:Testing performed by : [facility], [address] [place] [address]., [address] Blood 07/12/2024 9:33 AM [employer] 07/12/2024 9:33 AM [employer] Notinfile Unknown LAB POCT ORDERABLES - DEVICE F inal Result NILSA RODRIGES [facility] Department [place] [address] * Lipid panel (05/16/2024 10:14 AM [employer]) Cholesterol 160 30 - 199 mg/dL Comment: [...] NILSA DIAS Blood 05/16/2024 10:1 4 AM [employer] 05/16/2024 10:50 AM [employer] Narrative NILSA LARISSA - 05/16/2024 11:23 AM [employer] These lab test should be done fasting. This means do not eat or drink for at least 12 hours prior to getting your blood drawn. us Smith Gibbs MD LAB BLOOD ORDERABLES Final R esult NILSA [facility] [address] [facility]. Department of Laboratories [place], [place] [id number] * Colonoscopy (03/01/2024 8:49 AM CDT) Anatomical Region Laterality Modality Other Narrative Procedure Note Jaya Grier MD - 03/01/2024 8:[address] [facility] Patient Name: Sixto Chakraborty Procedure Date: 03/01/2024 8:49 AM Date of : 1950 Admit Type: Outpatient Age: 73 Gender: Female Attending MD: Jaya Grier M.D. Room: [facility] ENDOSCOPY ROOM 06 Note Status: Finalized Procedure: [...] The scope was passed under direct vision.The [id number] colonoscope was introduced through theanus and advanced [...] On: 03/01/2024 8:49 AM Recognized by the [employer] for promoting quality [...] taking vitamin-D. History of end-stage renal disease. Clinical Trial Specialist/Model: Pixate A (S/N [id number]) CLINICAL INFORMATION: Current height: 61 inches Maximum [...] Rafaela Paulino M.D. TW: TW Report ID: [id number] Reading Location: [id number] Procedure Note Rafaela Paulino MD - 01/22/2024 EXAM DESCRIPTION: DEXA AXIAL SKELETON BONE DENSITY 1 OR MORE SITES REASON FOR STUDY: 73 y/o year old F with given history of: Post menopausal status. History of taking vitamin-D. History of end-stagerenal disease. Clinical Trial Specialist/Model: Pixate A (S/N [id number]) CLINICAL INFORMATION: Current height: 61 inches Maximum [...] Rafaela Paulino M.D. TW: TW Report ID: [id number] Reading Location: [id number] us Cherelle Corcoran MD IMG DXA PROCEDURE [...] age 40, based on guidelines of the [employer] (ACR Practice Parameter for the Performance of Screening and Diagnostic Mammography) and [employer]. For women [...] 19. Hep B core IgM Nonreactive Nonreactive [facility] Comment: Interpretive Data If HepB Core IgM Ab is reported as Equivocal, a new sample should be drawn in two weeks for testing. Current interpretive data was last revised on 19. Hep C Ab Nonreactive Nonreactive [facility] Comment: Interpretive Data Nonreactive: Antibodies to HCV [...] last revised on 2019. HepBsAg Nonreactive Nonreactive [facility] Blood 10/15/2023 6:50 AM CDT 10/15/2023 7:07 AM CDT Jimbo Strauss MD LAB MICROBIOLOGY - GENERAL FREDDY HALEY Final Result [facility] [address] [address] Department [place] [address] * (ABNORMAL) Albumin Creatinine Ratio, Urine (10/10/2022 11:39 AM CDT) Albumin Ur 3,240.2 mg/L NILSA Comment: Interpretive Data No reference range established. Current interpretive data was last revised 2018. Testing performed by: [address] [address] Creatinine Ur 74.8 mg/dL NILSA Comment: Interpretive Data No reference range established. Current interpretive data was last revised 2018. Testing performed by: [address] [address] Albumin Creatinine Ratio, Ur 4,332(H) 1 - 29 mg/g NILSA Comment:Testing performed by : [address] [address] Urine 10/10/2022 11:3 9 AM CDT 10/10/2022 1:45 PM CDT us Markie Ryan MD LAB URINE ORDERABLES Final Re sult Performing Organization Address City/State/[facility] Co de Phone Number NILSA [address] [facility] Department [place] [address] from Last 3 Months or Most Recently Relevant to Health Maintenance Insurance MEDICARE MEDICARE [place]PA MEDICARE IDPA MEDICARE 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 Relationship Specialty Start Date End Date Cherelle Corcoran MD PCP - General Family Medicine 08/30/19 Mark Queen MD Consulting Physician Infectious Diseases 01/10/20 Rudolph Welch MD [address] [facility] [address] [place] [address] Consulting Physician Infectious Diseases 12/05/22 Markie Ryan MD [address] [facility] [address] [place] [address] Consulting Physician Nephrology 12/05/22 [place] [id number] [address] Consulting Physician Nephrology 10/22/23 Jaya Grier MD [address] [facility] [address] [place] [address] Consulting Physician Gastroenterology 02/01/24 Edgardo Kauffman MD [address] [facility] [address] [place] [address] Surgeon Vascular Surgery 07/15/24
--- OUTSIDE RECORDS SUMMARY | 2024-09-07 10:08 | XMS_ITS | Continuity of Care Document ---
Author Organization [facility] Address [address] [facility] [address] [facility] [address] [place] [address] Phone Care Team Providers Care Off Track Betting Manager Name Role Phone Luis OD, Alvarado Unavailable Unavailable Advance Directives Directive Yes / No Effective Date File Name No Information Encounters Encounter Description Practice Location Reason(s) For Visit Diagnoses Date Provider Providers Copied on Encounter [facility], [address], [place], [place], [id number], [place] tel:[phone] SEC [facility] No Information May-2 0-200 5 Luis OD Alvarado. [address] [facility] , [address], [place], [address], [place]. tel:[phone] Family History Family Member Type Diagnosis Age At Onset No Information Payers Payer name Insurance type Covered democrat ID Authoriza tion(s) Medicaid [facility] [id number] Social History Type Description Quantity Date Captured [...]
--- OUTSIDE RECORDS SUMMARY | 2024-09-07 10:08 | XMS_ITS ---
Author Organization [facility] Care Team Providers Care Material Controller Name Role Phone Demetri Roy Unavailable Unavailable Allergies and adverse reactions No Known Allergies Care Team Name Role Address Phone Organization Dates Demetri Roy PCP [address] [place], [place], [facility], [place] (Office): : : [facility] 08/15/2021 - 08/22/2021 Mental Status Section Date Assessment Total Score Description 08/22/2021 BIMS 13 cognitively int act CAM 0 No delirium ind icated PHQ-9 12 moderate depres jannette 08/21/2021 BIMS 13 cognitively int act CAM 0 No delirium ind icated PHQ-9 12 moderate depres jannette Problems Problem # Description Date of onset Resolved Date Code CodeSystem Concern Status 1 ALZHEIMER'S DISEASE 2 08/15/[address] completed 2 GASTRO-ESOPHAGEAL REFLUX DISEASE WITHOUT ESOPHAGITIS 2 08/15/[address] completed 3 IRON DEFICIENCY ANEMIA 2 08/15/[address] completed 4 OTHER HYPERLIPIDEMIA 2 08/15/[address] completed 5 SCHIZOAFFECTIVE DISORDER, BIPOLAR TYPE [address] active 6 SCHIZOAFFECTIVE DISORDER, BIPOLAR TYPE 2 08/15/[address] completed 7 ALZHEIMER'S DISEASE [address] active 8 ALZHEIMER'S DISEASE, UNSPECIFIED [address] active 9 ANEMIA, UNSPECIFIED [address] active 10 COVID-[address] active 11 ESSENTIAL (PRIMARY) HYPERTENSION [address] active 12 GASTRO-ESOPHAGEAL REFLUX DISEASE WITHOUT ESOPHAGITIS [address] active 13 IRON DEFICIENCY ANEMIA [address] active 14 OTHER HYPERLIPIDEMIA [address] active [address] active 16 TYPE 2 DIABETES MELLITUS WITH DIABETIC NEUROPATHY, UNSPECIFIED [address] active Reason for Referral No Reasons for Referral Entered Social History Social History Observation Description Start Date End Date Code Code System Current Smoking Status Tobacco smoking consumption unknown 569506593 SNOMED CT Sex Assigned At Female 1950 68931-0 [facility] Vital Signs Code Code System Vitals Name Values and Units Timing Information 8462-4 [facility] Blood Pressure-Diastolic Value=68 Un its=mmHg 08/22/2021 8480-6 [facility] Blood Pressure-Systolic Tbnch=112 Un its=mmHg 08/22/2021 9279-1 [facility] Respiratory Rate Value=20.0 Units=/m in 08/22/2021 8310-5 [facility] Body Temperature Value=97.8 Units= F 08/22/2021 8867-4 [facility] Heart rate Value=86.0 Units=/min 08/2021 2339-0 [facility] Blood Sugar Yksgr=624.0 Units=mg/dL 08/22/2021 46582-3 [facility] Pain Level Value=0.0 08/22/2021 13713-1 [facility] O2 % BldC Oximetry Value=96.0 Units= % 08/21/2021 54463-9 [facility] Weight Liqkd=620.1 Units=Lbs
--- OUTSIDE RECORDS SUMMARY | 2024-09-07 10:08 | XMS_ITS | Encounter Summary ---
Author Organization [facility] Address [address] [place] [address] Care Team Providers Care Mask Inspector Name Role Phone Cherelle Corcoran MD Primary Care Pro vider Mark Queen MD Unavailable [phone] Rudolph Welch MD Unavailable [phone] Markie Ryan MD Unavailable Jimbo Strauss MD Unavailable [phone] Jaya Grier MD Unavailable Edgardo Kauffman MD Unavailable Reason for Visit * Reason Onset Date Comments Weakness - Generalized 06/27/2024 Encounter Details Date Type Department Care Team (Late st Contact Info) Description 06/27/2024 Nurse Triage [facility] [place] [address] [facility] [address] [place] [address] Cherelle Corcoran MD [facility] [facility] [address] [place] [address] Social History Tobacco Use Types [...] in a residential (including now)? No 10/30/2023 PHQ-9 Answer Date [...] any time in the past [address] [facility], were you homeless or living in a residential (including now)? No 04/20/2024 Personal Safety Answer Date Recorded Have you ever been in or are you currently in a harmful physical or emotional relationship or is someone making you feel afraid or unsafe? Denies 04/19/2024 Comments No Sex and Gender Information Value Date Recorded Sex Assigned at Not on file Legal Sex Female 9:03 AM INTERACTIVE WEB DEVELOPER Gender Identity Female 02/08/2020 6:39 PM CDT Sexual Orientation Not on file documented as of this encounter Miscellaneous Notes * Telephone Encounter - Cherelle Corcoran MD - 06/28/2024 10:05 AM CST Thank you RACTIVE WEB DEVELOPER * Telephone Encounter - Sandy Mota MA - 06/28/2024 9:47 AM CST Spoke with pt daughter and she stated that the ambulance took her to the nearest ER which was [facility]. She is currently admitted into [place] to rule out stroke. They are doing a MRI today per pt daughter. She is still in the ER as they do not have a bed for her just yet upstairs in the hospital. I advised Ursula to keep us updated with any big changes via [employer] if she needs to. RACTIVE WEB DEVELOPER * Telephone Encounter - Cherelle Corcoran MD - 06/28/2024 9:13 AM CST Acknowledged, it does not look like she went to [facility]. Can you follow up to see if she went to [place] and what status is? thanks RACTIVE WEB DEVELOPER * Telephone Encounter - Ruby Chapman RN [...] the triager Protocols used: Weakness (Generalized) and Irldell-Lsdio-LB RACTIVE WEB DEVELOPER * Telephone Encounter - Ruby Chapman RN - 06/27/2024 4:05 PM CST Regarding: explosive diarrhea, not moving like her hands are cramped up, barely talking to her and she's not e ----- Message from Berenice Hobbs sent at 06/27/2024 4:02 PM INTERACTIVE WEB DEVELOPER ----- Symptom Based Call Chief Complaint(s): Areli patients daughter called stating the patient had explosive diarrhea, not moving like her hands are cramped up, barely talking to her and she's not eating. Duration: today on 06/27/24 What type of symptom(s) is the patient experiencing? Non-Emergent. Is this a new or reoccurring symptom(s)? new What have you tried to help your symptom(s)? Nothing Why was appointment not scheduled? Requesting advice from clinical steam shovel runner. Additional Comments: Caller stated the patient was suppose to go to dialysis today on 06/27/24 but didn't due to the weather, please advise. Does message need to be routed? Yes-Action Needed RACTIVE WEB DEVELOPER documented in this encounter Plan of Treatment Upcoming Encounters Date Type Department Care Team (Latest Contact Info) Description 09/13/2024 8:00 AM CDT Hospital Encounter [facility] [address] [place] [address] Jaya Grier MD [address] [place] [address] 09/13/2024 8:00 AM CDT - 09/13/2024 8:30 AM CDT Surgery [facility] [address] [place] [address] Jaya Grier MD [address] [place] [address] ESOPHAGOGASTRODUODENOSCOPY Scheduled Procedures Name Priority Associated Diagnoses Date/Ti va ESOPHAGOGASTRODUODENOSCOPY Ulcer of esophagus without bleeding 09/13/2024 8:00 AM CDT COLONOSCOPY Iron deficiency anemia due to chronic blood loss documented as of this encounter Visit Diagnoses Not on filedocumented in this encounter Additional Health Concerns Infection Onset Date Last Indicated Resolved Time COVID: Suspected 07/12/2024 07/12/2024 07/12/2024 12:39 PM INTERACTIVE WEB DEVELOPER COVID: Suspected 07/31/2024 07/31/2024 07/31/2024 2:06 PM INTERACTIVE WEB DEVELOPER documented as of this encounter Care Teams Mask Inspector Relationship Specialty Start Date End Date Cherelle Corcoran MD PCP - General Family Medicine 08/30/19 Mark Queen MD Consulting Physician Infectious Diseases 01/10/20 Rudolph Welch MD [address] [place] [address] Consulting Physician Infectious Diseases 12/05/22 Markie Ryan MD [address] [place] [address] Consulting Physician Nephrology 12/05/22 [place] [address] [address] Consulting Physician Nephrology 10/22/23 Jaya Grier MD [address] [place] [address] Consulting Physician Gastroenterology 02/01/24 Edgardo Kauffman MD [address] [place] [address] Surgeon Vascular Surgery 07/15/24 documented as of this encounter
--- OUTSIDE RECORDS SUMMARY | 2024-09-07 10:08 | XMS_ITS | Clinical Summary ---
Author Organization [facility] Address [address], [address] [address] Phone Care Team Providers Care Is Architect Name Role Phone Cherelle Corcoran MD [...] 80 03/11/2019 11:32 AM CDT Temperature 36.1 C (97 F) 03/11/2019 10:19 AM CDT Respiratory Rate 17 [...] Risk 60-74 years 1-dose series) 2010 Mammogram 11/07/2016 11/08/2015 Immunochemical Fecal Occult Blood 03/30/2018 03/30/2017 [...] - 144 mmol/L 03/11/2019 11:10 AM CDT [facility] POTASSIUM 4.8 3.5 - 5.1 mmol/L 03/11/2019 11:10 AM CDT [facility] CHLORIDE 96(L) 100 - 110 mmol/L 03/11/2019 11:10 AM CDT [facility] CO2, VENOUS 28 22 - 32 mmol/L 03/11/2019 11:10 AM CDT [facility] ANION GAP 17.8 8.0 - 20.0 mmol/L 03/11/2019 11:10 AM CDT [facility] GLUCOSE 216(H) 70 - 99 mg/dL 03/11/2019 11:10 AM CDT [facility] BUN 22 8 - 23 mg/dL 03/11/2019 11:10 AM CDT [facility] CREATININE, BLOOD 0.66 0.60 - 1.10 mg/dL 03/11/2019 11:10 AM [facility] BUN/CREATININE RATIO 33(H) 12 - 20 ratio 03/11/2019 11:10 AM [facility] TOTAL PROTEIN 8.4(H) 6.0 - 8.3 g/dL 03/11/2019 11:10 AM [facility] ALBUMIN 4.3 3.5 - 5.2 g/dL 03/11/2019 11:10 AM [facility] Comment: The colormetric methods used for the determination of Albumin may lead to falsely elevated test results in patients suffering from renal failure or insufficiency due to interference with other proteins. A/G RATIO 1.0 1.0 - 2.0 03/11/2019 11:10 AM [facility] CALCIUM 10.4(H) 8.9 - 10.3 mg/dL 03/11/2019 11:10 AM [facility] T BILI 0.3 <=1.2 mg/dL 03/11/2019 11:10 AM [facility] SGOT (AST) 19 <=32 U/L 03/11/2019 11:10 AM [facility] Comment: Hemolysis present: results may be falsely elevated. SGPT (ALT) 14 <=33 U/L 03/11/2019 11:10 AM [facility] ALKALINE PHOSPHATASE 123(H) 35 - 105 U/L 03/11/2019 11:10 AM [facility] GFR, EST. NONAFRICAN >60 >=60 03/11/2019 11:10 AM [facility] GFR, EST. >60 >=60 019 11:10 AM [facility] Comment: Creatinine Clearance is the preferred criteria for selecting drug dose adjustments in renally impaired patients. The GFR is provided as additional pertinent clinical information. GFR is reported in mL/min/1.73 sq m. Blood specimen (specimen) Venous Catheter (IV) / Unknown 03/11/2019 10:23 AM CDT 03/11/2019 10:46 AM CDT us Ronald Haro MD CHEMISTRY ORDERABLES Final Result Performing Organization Address City/[facility]/ZIP Co de Phone Number [facility] [address] [place] [address] * (ABNORMAL) POCT GLYCOSYLATED HEMOGLOBIN (01/20/2019 9:44 AM CDT) HGB-A1C 15(A) 4 - 6 Comment:above 15 01/20/2019 9:44 AM CDT us Choco Morris PAC POINT OF CARE TESTING (M ANUAL) Final Result * Stool, Occult Blood, Diagnostic (03/30/2017 2:09 PM CDT) OCCULT BLOOD DIAG, GI BLEED Negative Negative 03/30/2017 2:29 PM CDT [facility] Stool specimen (specimen) STOOL SPECIMEN / Unknown Non-Phlebotomy Collection / Unknown 03/30/2017 2:09 PM CDT 03/30/2017 2:23 PM CDT us Anali Ortiz PAC BODY FLUIDS & STOOLS ORDERAB LES Final Result Performing Organization Address City/[facility]/ZIP Co de Phone Number [facility] [address] [place] [address] * CHERYL SCREENING BILATERAL DIGITAL W CAD (11/08/2015) Anatomical Region Laterality Modality breast Bilateral Other us Historical Provider IMG MAMMO ORDERABLES Blessing l Result from Last 3 Months or Most Recently Relevant to Health Maintenance Insurance MEDICARE C [employer] MED[place] [id number] [place]ICA[place] Advance Directives * Full Code (Latest Code Status on File) Date Activated Date Inactivated Comments 04/07/2017 7:30 AM 03/11/2019 10:12 AM * Full Code Date Activated Date Inactivated Comments 03/30/2017 6:32 PM 04/03/2017 5:43 PM CPR-Full Tr eatment: FULL ARREST: Attempt Resuscitation/CPR wit intubation and mechanical ventilation. PRE-ARREST: Use entire range of life support measures to stabilize the patient. Care Teams Is Architect Relationship Specialty Start Date End Date Cherelle Corcoran MD [address] [place] [address] PCP - General Family Medicine 02/12/24 Sim López MD [address] [place] [address] Consulting Physician Oncology 02/12/24
--- NOTE | 2024-09-07 13:14 | ED.GENADULT ---
HPI - General Adult General Chief complaint: Weakness Stated complaint: weakness, hypotension, dialysis yesterday Time Seen by Provider: 09/07/24 12:02 History of Present Illness HPI narrative: 73-year-old female presents to the emergency department for evaluation for increased generalized weakness has been ongoing for the last few days. Patient does do dialysis at home. Patient states she has had increased weakness of her lower legs some tingling of her hands. Patient states she does still make urine and feels her urine has been increasingly cloudy over the last few days. Patient reports she does have some cough and congestion. Denies any specific falls or injuries. Related Data Home Medications ?Medication ?Instructions ?Recorded ?Confirmed ?Last Taken ?Type atorvastatin 40 mg tablet 20 mg PO HS 06/23/21 06/28/24 09/19/21 History acetaminophen 325 mg tablet 650 mg PO Q6H PRN Pain 09/19/21 06/28/24 Unknown History ferrous sulfate 325 mg (65 mg 325 mg PO DAILY 09/19/21 06/28/24 09/19/21 History iron) tablet insulin glargine 100 unit/mL (3 18 unit subcut HS 09/19/21 06/28/24 09/19/21 History mL) subcutaneous pen (Lantus Solostar U-100 Insulin) insulin lispro 100 unit/mL 1 - 4 sliding scale dose subcut 09/19/21 06/28/24 Unknown History subcutaneous pen USEASDIRECTD lidocaine 5 % topical patch 2 patch topical DAILY PRN Back Pain 09/19/21 06/28/24 Unknown History multivitamin 1 tablet PO DAILY 09/19/21 06/28/24 Unknown History albuterol sulfate 90 mcg/actuation 2 inh inhalation Q4H PRN Shortness 11/04/21 06/28/24 Unknown History aerosol inhaler Of Breath Or Wheezing aspirin 81 mg chewable tablet 81 mg PO DAILY 06/28/24 06/28/24 Unknown History benztropine 2 mg tablet 2 mg PO HS 06/28/24 06/28/24 Unknown History calcium phosphate,dibasic 77 1 tablet PO WEEKLY 06/28/24 06/28/24 Unknown History mg-vitamin D3 400 unit tablet hydralazine 25 mg tablet 25 mg PO .q12 06/28/24 06/28/24 Unknown History nifedipine 60 mg tablet,extended 60 mg PO HS 06/28/24 06/28/24 Unknown History release pantoprazole 40 mg tablet,delayed 40 mg PO Q12H 06/28/24 06/28/24 Unknown History release tramadol 25 mg tablet 25 mg PO Q6H PRN pain 06/28/24 06/28/24 Unknown History Allergies Allergy/AdvReac Type Severity Reaction Status Date / Time No Known Allergies Allergy Verified 09/07/24 09:26 Review of Systems Review of Systems: All systems reviewed & are unremarkable except as noted in HPI and below PMFSH Past Medical History Medical History (Updated 09/07/24 @ 17:27 by Mukund Banks MD) Drug-induced Parkinson's disease Heart failure with preserved ejection fraction Insulin dependent diabetes mellitus Chronic kidney disease, stage 4 (severe) Creatinine ranges from 1.9 to 2.20. Venous thrombosis Anemia Hyperkalemia Dementia COVID (06/2021) Schizophrenia Diabetic neuropathy Surgical History Surgical History History of cataract extraction with lens replacement History of section Right great toe amputee Family History Family History Mother Diabetes mellitus Acute myocardial infarction Father Heart attack Cancer Sibling Diabetes mellitus Acute myocardial infarction Social History Social History Social History: The patient lives with her daughter and grand son in [place]. Lifelong nonsmoker. No alcohol or illicit substance abuse. She designates her daughter, Candelaria Gayle, as her surrogate decision maker. Code status: Full code. Smoking status: Never smoker Alcohol intake: former Substance use: never Do You Feel Safe in your Home?: No Lack of Transportation: No Lack of Food: Never True Current Housing: I Have Housing Concerned About Future Housing: No Difficulty Paying Gas/Electric Bills: No Difficulty Paying for Meds: No Currently Unemployed: No Education: Decline to Answer Difficulty w/ Childcare or Family Care: No Living arrangements: with family Spiritual care concerns: No Exam Narrative: APPEARANCE: Well appearing, no pain, no distress, well-nourished. HEAD: normocephalic, atraumatic. EYES: PERRLA/EOMI, conjunctivae clear. NOSE: Normal no drainage EARS:TMS clear with good light reflex. THROAT: Pharynx clear, no exudate. NECK: Supple. No adenopathy, no masses. RESPIRATORY: Airway patent, respirations nonlabored. Clear to auscultation bilaterally, no rales, rhonchi, wheezing. CARDIOVASCULAR: Regular rate and rhythm without murmurs rubs or gallops. ABDOMINAL: Soft, nontender, nondistended, normal bowel sounds MUSCULOSKELETAL: Moves all extremities. Strength/ROM intact, No edema, No calf tenderness. NEURO: Alert. Cranial nerves II through XII intact. Grossly intact SKIN: Warm, dry. Normal Color Course Vital Signs Vital signs: Vital Signs Temperature 98.8 F 09/07/24 09:20 Pulse Rate 64 09/07/24 09:20 Respiratory Rate 18 09/07/24 09:20 Blood Pressure 107/62 09/07/24 09:20 Pulse Oximetry 100 09/07/24 09:20 Oxygen Delivery Room Air 09/07/24 09:20 Temperature 98.8 F 09/07/24 09:20 Pulse Rate 68 09/07/24 17:40 Respiratory Rate 16 09/07/24 17:40 Blood Pressure 145/68 H 09/07/24 17:40 Pulse Oximetry 100 09/07/24 17:40 Oxygen Delivery Room Air 09/07/24 09:20 Medical Decision Making MDM Narrative Medical decision making narrative: 73-year-old female presents to the emergency department for evaluation for increased fatigue. Patient reports she was having some tingling of her hands and feet. Patient also complained of some left shoulder pain. Patient is currently afebrile. Patient has no significant electrolyte abnormalities. UA was negative for infection patient was negative for influenza RSV and for COVID. Head CT was negative. Shoulder x-ray was negative. Patient has a normal CBC as well. Patient was able to ambulate at baseline. Patient was comfortable the plan for discharge to home. Differential Diagnosis Differential Diagnosis: COVID, RSV, influenza, electrolyte abnormality, urinalysis Vital Signs Vital Signs: Vital Signs Temperature 98.8 F 09/07/24 09:20 Pulse Rate 64 09/07/24 09:20 Respiratory Rate 18 09/07/24 09:20 Blood Pressure 107/62 09/07/24 09:20 Pulse Oximetry 100 09/07/24 09:20 Oxygen Delivery Room Air 09/07/24 09:20 Temperature 98.8 F 09/07/24 09:20 Pulse Rate 68 09/07/24 17:40 Respiratory Rate 16 09/07/24 17:40 Blood Pressure 145/68 H 09/07/24 17:40 Pulse Oximetry 100 09/07/24 17:40 Oxygen Delivery Room Air 09/07/24 09:20 Lab Data Lab results reviewed: Yes I reviewed the patient's lab results. 09/07/24 17:15 09/07/24 14:30 Labs: Lab Results 09/07/24 09/07/24 09/07/24 Range/Units 13:37 14:05 14:30 WBC (4.5-10.0) K/mm3 RBC (4.2-5.4) M/mm3 Hgb (12.0-15.0) g/dL Hct (37.0-47.0) % MCV (80-100) fl MCH (26-34) pg MCHC (32-36) g/dl RDW (11.5-14.5) % Plt Count (150-375) k/mm3 MPV (7.4-10.4) fl Immature Gran % (Auto) (0-0.5) % Neut % (Auto) (45.5-73.1) % Lymph % (Auto) (18.3-44.2) % [place] % (Auto) (2.6-8.5) % Eos % (Auto) (0-4.4) % Baso % (Auto) (0.2-1.2) % Lymph # (Auto) (0.9-3.2) K/mm3 [place] # (Auto) (0.1-0.6) K/mm3 Eos # (Auto) (0-0.3) K/mm3 Baso # (Auto) (0.0-0.1) K/mm3 Abs Immat Gran (auto) (0.00-0.031) K/mm3 Absolute Neuts (auto) (1.3-6.7) K/mm3 Absolute Nucleated RBC (0.0-0.012) K/mm3 Nucleated RBC % (0.0-0.2) % PT 12.8 (11.1-14.7) Seconds INR 0.9 APTT 22.4 (22.3-36.8) Seconds Sodium 137 (137-145) mmol/L Potassium 4.0 (3.4-5.0) mmol/L Chloride 96 L (98-107) mmol/L Carbon Dioxide 29 (22-30) mmol/L Anion Gap 12 (4-12) mmol/L BUN 36 H (7-17) mg/dL Creatinine 4.14 H (0.7-1.0) mg/dL Estim Creat Clear Calc 9 ml/min Estimated GFR 11 L (59 - ) Glucose 175 H (65-110) mg/dL Calcium 9.5 (8.4-10.2) mg/dL Total Bilirubin 0.5 (0.2-1.3) mg/dL AST 18 (14-36) U/L ALT 15 (6-35) U/L Alkaline Phosphatase 132 H (38-126) U/L Total Protein 8.0 (6.3-8.2) g/dL Albumin 4.2 (3.5-5.1) g/dL Urine Color Yellow (Yellow) Urine Appearance Clear (Clear) Urine pH 7.5 (5.0-9.0) Ur Specific [place] 1.008 (1.001-1.035) Urine Protein 2+ H (Negative) mg/dL Urine Glucose (UA) 2+ H (Negative) mg/dL Urine Ketones Negative (Negative) mg/dL Ur Blood (Man) Negative (Negative) Urine Nitrate Negative (Negative) Urine Bilirubin Negative (Negative) Urine Urobilinogen 0.2 (<2.0) mg/dL Add Ur Microanalysis Reviewed Leukocyte Esterase Rfl Trace H (Negative) RENEE/UL Urine RBC 0-2 (0-2) /hpf Urine WBC 6-10 H (0-3) /hpf Ur Squamous Epith Cells Occasional (Few) /hpf Urine Bacteria None seen /hpf Urine Casts 0-2 Influenza A (RT-PCR) Negative (Negative) Influenza B (RT-PCR) Negative (Negative) RSV (RT-PCR) Negative (Negative) SARS-CoV-2 RNA (RT-PCR) Negative (Negative) 09/07/24 Range/Units 17:15 WBC 8.9 (4.5-10.0) K/mm3 RBC 3.04 L (4.2-5.4) M/mm3 Hgb 9.6 L (12.0-15.0) g/dL Hct 30.0 L (37.0-47.0) % MCV 98.7 (80-100) fl MCH 31.6 (26-34) pg MCHC 32.0 (32-36) g/dl RDW 14.7 H (11.5-14.5) % Plt Count 225 (150-375) k/mm3 MPV 10.2 (7.4-10.4) fl Immature Gran % (Auto) 0.5 (0-0.5) % Neut % (Auto) 54.9 (45.5-73.1) % Lymph % (Auto) 34.8 (18.3-44.2) % [place] % (Auto) 7.6 (2.6-8.5) % Eos % (Auto) 1.9 (0-4.4) % Baso % (Auto) 0.3 (0.2-1.2) % Lymph # (Auto) 3.08 (0.9-3.2) K/mm3 [place] # (Auto) 0.7 H (0.1-0.6) K/mm3 Eos # (Auto) 0.2 (0-0.3) K/mm3 Baso # (Auto) 0.0 (0.0-0.1) K/mm3 Abs Immat Gran (auto) 0.04 H (0.00-0.031) K/mm3 Absolute Neuts (auto) 4.9 (1.3-6.7) K/mm3 Absolute Nucleated RBC 0.000 (0.0-0.012) K/mm3 Nucleated RBC % 0.0 (0.0-0.2) % PT (11.1-14.7) Seconds INR APTT (22.3-36.8) Seconds Sodium (137-145) mmol/L Potassium (3.4-5.0) mmol/L Chloride (98-107) mmol/L Carbon Dioxide (22-30) mmol/L Anion Gap (4-12) mmol/L BUN (7-17) mg/dL Creatinine (0.7-1.0) mg/dL Estim Creat Clear Calc ml/min Estimated GFR (59 - ) Glucose (65-110) mg/dL Calcium (8.4-10.2) mg/dL Total Bilirubin (0.2-1.3) mg/dL AST (14-36) U/L ALT (6-35) U/L Alkaline Phosphatase (38-126) U/L Total Protein (6.3-8.2) g/dL Albumin (3.5-5.1) g/dL Urine Color (Yellow) Urine Appearance (Clear) Urine pH (5.0-9.0) Ur Specific [place] (1.001-1.035) Urine Protein (Negative) mg/dL Urine Glucose (UA) (Negative) mg/dL Urine Ketones (Negative) mg/dL Ur Blood (Man) (Negative) Urine Nitrate (Negative) Urine Bilirubin (Negative) Urine Urobilinogen (<2.0) mg/dL Add Ur Microanalysis Leukocyte Esterase Rfl (Negative) RENEE/UL Urine RBC (0-2) /hpf Urine WBC (0-3) /hpf Ur Squamous Epith Cells (Few) /hpf Urine Bacteria /hpf Urine Casts Influenza A (RT-PCR) (Negative) Influenza B (RT-PCR) (Negative) RSV (RT-PCR) (Negative) SARS-CoV-2 RNA (RT-PCR) (Negative) Imaging Data Radiologist's impression: Impressions Head CT 09/07/24 13:58 IMPRESSION: 1. Unchanged old lacunar infarct at the right thalamus. No acute intracranial process. 2. Moderate scattered nonspecific white matter hypoattenuation consistent with chronic small vessel ischemic disease. Shoulder X-Ray 09/07/24 16:52 IMPRESSION: No acute fracture or anterior dislocation. Discharge Plan Discharge Clinical Impression: Episode of generalized weakness Patient Disposition: Home, Self-Care Condition: Stable Instructions: Antibiotic Form Additional Instructions: Dialysis as scheduled. Have close follow-up with your primary care physician. If you have any worsening symptoms then please call or return to the emergency department. Patient Language: Ug[place] Prescriptions: No Action atorvastatin 40 mg tablet 20 mg PO HS ferrous sulfate 325 mg (65 mg iron) Tablet 325 mg PO DAILY acetaminophen 325 mg Tablet 650 mg PO Q6H PRN (Reason: Pain) insulin glargine [Lantus Solostar U-100 Insulin] 100 unit/mL (3 mL) insulin pen 18 unit SUBCUT HS multivitamin Tablet 1 tablet PO DAILY lidocaine 5 % Adhesive Patch,Medicated 2 patch TOPICAL DAILY PRN (Reason: Back Pain) Rx Instructions: to bilateral lower back insulin lispro 100 unit/mL Insulin Pen 1 - 4 sliding scale dose SUBCUT USEASDIRECTD Rx Instructions: 150 or less: no insulin 151-200: 1 unit 201-250: 2 units 251-300: 3 units greater than 300: 4 units carvedilol [Coreg] 3.125 mg Tablet 3.125 mg PO Q12HR Qty: 60 2RF albuterol sulfate 90 mcg/actuation HFA aerosol inhaler 2 inh INHALATION Q4H PRN (Reason: Shortness Of Breath Or Wheezing) Eliquis 5 mg Tablet 5 mg PO Q12HR Qty: 60 0RF benzonatate 100 mg Capsule 100 mg PO Q8HR PRN (Reason: Cough) Qty: 30 0RF tramadol 25 mg tablet 25 mg PO Q6H PRN (Reason: pain) pantoprazole 40 mg tablet,delayed release (DR/EC) 40 mg PO Q12H aspirin 81 mg tablet,chewable 81 mg PO DAILY nifedipine 60 mg tablet extended release 60 mg PO HS hydralazine 25 mg tablet 25 mg PO .q12 benztropine 2 mg tablet 2 mg PO HS calcium phos,dibas-vitamin D3 77-400 mg-unit tablet 1 tablet PO WEEKLY Follow-up/Referrals: Nilo,Cherelle Butterfield MD [Primary Care Provider] -
--- OUTSIDE RECORDS SUMMARY | 2024-09-07 13:49 | XMS_ITS | Clinical Summary ---
Author Organization [facility] Address [address] [place] [id number] Care Team Providers Care Crm Technical Lead Name Role Phone Cherelle Corcoran MD Primary Care Provider [phone] Social History Tobacco Use Types Packs/Day Years [...] 11/20, 08/02/2022, Additional history exists PHQ-2 (Physician [place]) 06/22/2024 Mammogram Screening 01/21/2026 01/22/2024, 09/25/2022, 01/08/2021, [...] this topic Insurance MEDICARE MEDICAID Care Teams Crm Technical Lead Relationship Specialty Start Date End Date Cherelle Corcoran MD [address] [place] [id number] PCP - General FAMILY PRACTICE 09/27/19
--- OUTSIDE RECORDS SUMMARY | 2024-09-07 13:49 | XMS_ITS | Encounter Summary ---
Author Organization [facility] Address [address] [place] [address] Phone Care Team Providers Care Senior Net Application Developer Name Role Phone Cherelle Corcoran MD Primary Care Pro vider QueenMark Perez MD Unavailable [phone] Brandie Callejas MA Unavailable Unav ailable Xenia Padilla LPN Unavailable [phone] Samples, Melania Joel RN Unavailable Anam Costa LCSW Unavailable Unavailabl e Samples, Melania Joel RN Unavailable Rudolph Welch MD Unavailable Markie Ryan MD Unavailable [phone] Nadege Ramírez RN Unavailable Dulce Vega RN Unavailable [phone] Jimbo Strauss MD Unavailable Jaya Grier MD Unavailable Edgardo Kauffman MD Unavailable [phone] Encounter Details Date Type Department Care Team (Late st Contact Info) Description 12/30/2021 Telephone [facility] Endocrinology Metabolism and Lipid [address] [facility] 5th [place] [address] [place] [address] Rachael Smith CMA Social History [...] on file Legal Sex Female 9:03 AM SEED AND FERTILIZER SPECIALIST Gender Identity Female 02/08/2020 6:39 PM CDT Sexual Orientation Not on file documented as of this encounter Plan of Treatment Upcoming Encounters Date Type Department Care Team (Latest Contact Info) Description 09/13/2024 8:00 AM CDT Hospital Encounter [facility] GI Lab [address] [place] [address] Jaya Grier MD [facility] [facility] [address] [place] [address] 09/13/2024 8:00 AM CDT - 09/13/2024 8:30 AM CDT Surgery [facility] GI Lab [address] [place] [address] Jaya Grier MD [address] [facility] [address] [place] [address] ESOPHAGOGASTRODUODENOSCOPY Scheduled Procedures Name Priority Associated Diagnoses Date/Ti ga ESOPHAGOGASTRODUODENOSCOPY Ulcer of esophagus without bleeding 09/13/2024 8:00 AM CDT COLONOSCOPY Iron deficiency anemia due to chronic blood loss documented as of this encounter Visit Diagnoses Not on filedocumented in this encounter Additional Health Concerns Infection Onset Date Last Indicated Resolved Time COVID: Suspected 05/08/2022 05/08/2022 05/08/2022 4:26 PM SEED AND FERTILIZER SPECIALIST COVID: Suspected 06/19/2022 06/19/2022 06/19/2022 12:37 PM SEED AND FERTILIZER SPECIALIST COVID: Suspected 08/01/2022 08/01/2022 08/01/2022 2:28 PM SEED AND FERTILIZER SPECIALIST COVID: Suspected 10/02/2022 10/02/2022 10/02/2022 8:14 PM CDT MRSA Comment:Toe 11/08/22, 12/12/22 11/08/2022 12/12/2022 06/10/2023 3:05 AM SEED AND FERTILIZER SPECIALIST COVID: Suspected 12/08/2022 12/08/2022 12/08/2022 8:17 PM CDT COVID: Suspected 07/27/2023 07/27/2023 07/28/2023 12:57 AM SEED AND FERTILIZER SPECIALIST COVID: Suspected 10/29/2023 10/30/2023 10/30/2023 10:59 AM CDT 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 12/19/2023 12/19/2023 3:58 PM CDT 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 12/29/2023 06/26/2024 3:05 AM SEED AND FERTILIZER SPECIALIST COVID: Suspected 04/19/2024 04/19/2024 04/20/2024 12:44 AM CDT COVID: Suspected 07/12/2024 07/12/2024 07/12/2024 12:39 PM SEED AND FERTILIZER SPECIALIST COVID: Suspected 07/31/2024 07/31/2024 07/31/2024 2:06 PM SEED AND FERTILIZER SPECIALIST documented as of this encounter Care Teams Senior Net Application Developer Relationship Specialty Start Date End Date Cherelle Corcoran MD PCP - General Family Medicine 08/30/19 Mark Queen MD Consulting Physician Infectious Diseases 01/10/20 Brandie Callejas MA Patient Chief Dispatcher 06/20/22 06/22/22 Xenia Padilla LPN [address] [place] [address] [address] [place] [address] Lumber Salvager 06/24/22 06/24/22 Samples, Melania Joel RN [address] [place] [address] [address] [place] [address] Lumber Salvager 07/22/22 08/21/22 Anam Costa LCSW [address] [place] [address] [address] [place] [address] Heavy Equipment Operator/Paver 08/08/22 02/18/23 Samples, Melania Joel RN [address] [place] [address] [address] [place] [address] Lumber Salvager 08/22/22 12/07/22 Rudolph Welch MD [address] [facility] [address] [place] [address] Consulting Physician Infectious Diseases 12/05/22 Markie Ryan MD [address] [facility] [address] [place] [address] Consulting Physician Nephrology 12/05/22 Nadege Ramírez RN [address] [place] [address] [address] [place] [address] Lumber Salvager 01/20/23 02/23/23 Dulce Vega, ALIREZA [address] [place] [address] [address] [place] [address] Lumber Salvager 10/07/23 05/03/[address] [place] [address] [facility] [address] [place] [address] Consulting Physician Nephrology 10/22/23 Jaya Grier MD [address] [facility] [address] [place] [address] Consulting Physician Gastroenterology 02/01/24 Edgardo Kauffman MD [address] [facility] [address] [place] [address] Surgeon Vascular Surgery 07/15/24 documented as of this encounter
--- OUTSIDE RECORDS SUMMARY | 2024-09-07 13:49 | XMS_ITS | Encounter Summary ---
Author Organization [facility] Address [address] [place] [address] Care Team Providers Care Stripper Apprentice Name Role Phone Cherelle Corcoran MD Primary Care Pro vider Mark Queen MD Unavailable [phone] Rudolph Welch MD Unavailable Markie Ryan MD Unavailable Jimbo Strauss MD Unavailable [phone] Jaya Grier MD Unavailable Edgardo Kauffman MD Unavailable [phone] Reason for Visit * Reason Onset Date Comments Medical Question/Miscellaneous 08/17/2024 Encounter Details Date Type Department Care Team ([facility] st Contact Info) Description 08/17/2024 Telephone [facility] Primary Care at [address] [address] Cherelle Corcoran MD [facility] [address] Medical Question/Miscellaneous Social History Tobacco [...] from doctor or pharmacy Often 01/20/2024 [facility] Utilities Answer Date Recorded In the past [...] you attend chur ch or gnosticism services? More than 4 times per year [...] No 04/20/2024 Housing Stability Vital Sign Answer Fuetnes e Recorded In the last 12 months, [...] in a long-term (including now)? No 10/30/2023 PHQ-9 Answer Date [...] time in the past 12 m [facility], were you homeless or living [...] file Legal Sex Female 9:03 AM NURSING DIRECTOR Gender Identity Female 02/08/2020 6:39 PM [...] so she can contact them for patients correction services, please advise. Does message need to be routed? Yes-Action Needed ING DIRECTOR documented in this encounter Plan of Treatment Upcoming Encounters Date Type Department Care Team (Latest Contact Info) Description 09/13/2024 8:00 AM CDT Hospital Encounter [facility] GI Lab [address] [place] [address] Jaya Grier MD [address] [facility] [address] [place] [address] 09/13/2024 8:00 AM CDT - 09/13/2024 8:30 AM CDT Surgery [facility] GI Lab [address] [place] [address] Jaya Grier MD [address] [facility] [address] [place] [address] ESOPHAGOGASTRODUODENOSCOPY Scheduled Procedures Name Priority Associated Diagnoses Date/Ti me ESOPHAGOGASTRODUODENOSCOPY Ulcer of esophagus without bleeding 09/13/2024 8:00 AM CDT COLONOSCOPY Iron deficiency anemia due to chronic blood loss documented as of this encounter Visit Diagnoses Not on filedocumented in this encounter Care Teams Stripper Apprentice Relationship Specialty Start Date End Date Cherelle Corcoran MD PCP - General Family Medicine 08/30/19 Mark Queen MD Consulting Physician Infectious Diseases 01/10/20 Rudolph Welch MD [address] [facility] [address] [place] [address] Consulting Physician Infectious Diseases 12/05/22 Markie Ryan MD [address] [facility] [address] [place] [address] Consulting Physician Nephrology 12/05/22 [place] [id number] [address] Consulting Physician Nephrology 10/22/23 Jaya Grier MD [address] [facility] [address] [place] [address] Consulting Physician Gastroenterology 02/01/24 Edgardo Kauffman MD [address] [facility] [address] [place] [address] Surgeon Vascular Surgery 07/15/24 documented as of this encounter
--- OUTSIDE RECORDS SUMMARY | 2024-09-07 13:49 | XMS_ITS ---
Author Organization [facility] Care Team Providers Care Produce Runner Name Role Phone Brittney Hutchins Unavailable Unavailable Nick Whitley Unavailable Unavailable Ampadu, Demetri Unavailable Unavailable Kj Newberry Unavailable Unavailable Allergies and adverse reactions No Known Allergies Care Team Name Role Address Phone Organization Dates Demetri Ampadu PCP [address] [place], [address], [place] (Office): : [facility] 08/22/2021 - 09/04/2021 Brittney Hutchins Attending Physician [address] [facility] [address], [place], [address], [place] (Office): : [facility] 08/22/2021 - 09/04/2021 Nick Whitley Attending Physician [address] [place], [address], [place] (Office): : [facility] 08/22/2021 - 09/04/2021 Kj Newberry Attending Physician [place] (Office): : : [facility] 08/22/2021 - 09/04/2021 Mental Status Section Date Assessment Total Score Description 09/04/2021 CAM 0 No delirium ind icated 08/29/2021 BIMS 12 moderate cognit amanda impairment CAM 0 No delirium ind icated PHQ-9 05 mild depression Problems Problem # Description Date of onset Resolved Date Code CodeSystem Concern Status 1 ANEMIA, UNSPECIFIED 08/22/[address] active 2 CHRONIC KIDNEY DISEASE, UNSPECIFIED 08/22/[address] active 3 ESSENTIAL (PRIMARY) HYPERTENSION 08/22/[address] active 4 HISTORY OF FALLING 08/22/[address] active 5 HYPERLIPIDEMIA, UNSPECIFIED 08/22/[address] active 6 RETENTION OF URINE, UNSPECIFIED 08/22/[address] active 7 SCHIZOPHRENIA, UNSPECIFIED 08/22/[address] active 8 TYPE 2 DIABETES MELLITUS WITH DIABETIC NEUROPATHY, UNSPECIFIED 08/22/[address] active 9 TYPE 2 DIABETES MELLITUS WITHOUT COMPLICATIONS 08/22/[address] active 10 UNSPECIFIED DEMENTIA, UNSPECIFIED SEVERITY, WITHOUT BEHAVIORAL DISTURBANCE, PSYCHOTIC DISTURBANCE, MOOD DISTURBANCE, AND ANXIETY 08/22/[address] active 11 UNSPECIFIED OSTEOARTHRITIS, UNSPECIFIED SITE 08/22/[address] active 12 UNSTEADINESS ON FEET 08/22/[address] active 13 WEAKNESS 08/22/[address] active Reason for Referral No Reasons for Referral Entered Social History Social History Observation Description Start Date End Date Code Code System Current Smoking Status Tobacco smoking consumption unknown 021734072 SNOMED CT Sex Assigned At Female 1950 66354-5 [facility] Vital Signs Code Code System Vitals Name Values and Units Timing Information 2339-0 [facility] Blood Sugar Value=1.0 Units=mg/dL 9279-1 [facility] Respiratory Rate Value=18.0 Units=/m in 09/04/2021 83822-0 [facility] O2 % BldC Oximetry Value=97.0 Units= % 09/04/2021 8462-4 [facility] Blood Pressure-Diastolic Value=78 Un its=mmHg 09/04/2021 8480-6 [facility] Blood Pressure-Systolic Wjhma=904 Un its=mmHg 09/04/2021 8310-5 [facility] Body Temperature Value=98.9 Units= F 09/04/2021 8867-4 [facility] Heart rate Value=70.0 Units=/min 56504-1 [facility] Pain Level Value=0.0 09/04/2021 66970-3 [facility] Weight Jijaw=232.0 Units=Lbs 12/2021
--- OUTSIDE RECORDS SUMMARY | 2024-09-07 13:49 | XMS_ITS ---
Author Organization [facility] Care Team Providers Care Kiln Stacker Name Role Phone Brittney Hutchins Unavailable Unavailable Gutierrez, Nick Unavailable Unavailable Ampadu, Demetri Unavailable Unavailable Rohith, Kj Unavailable Unavailable Allergies and adverse reactions No Known Allergies Care Team Name Role Address Phone Organization Dates Demetri Ampadu PCP [address] [place], [address], [place] (Office): : [facility] 08/22/2021 - 09/04/2021 Brittney Hutchins Attending Physician [address], [place], [address], [place] (Office): : [facility] 08/22/2021 - 09/04/2021 Nick Whitley Attending Physician [address] [facility], [place], [address], [place] (Office): : [facility] 08/22/2021 - 09/04/2021 Kj Newberry Attending Physician [place] (Office): : : [facility] 08/22/2021 - 09/04/2021 Mental Status Section Date Assessment Total Score Description 09/04/2021 CAM 0 No delirium ind icated 08/29/2021 BIMS 12 moderate cognit amanda impairment CAM 0 No delirium ind icated PHQ-9 05 mild depression Problems Problem # Description Date of onset Resolved Date Code CodeSystem Concern Status 1 ANEMIA, UNSPECIFIED 08/22/[address] active 2 CHRONIC KIDNEY DISEASE, UNSPECIFIED 08/22/[address] active 3 ESSENTIAL (PRIMARY) HYPERTENSION 08/22/[address] active 4 HISTORY OF FALLING 08/22/[address] active 5 HYPERLIPIDEMIA, UNSPECIFIED 08/22/[address] active 6 RETENTION OF URINE, UNSPECIFIED 08/22/[address] active 7 SCHIZOPHRENIA, UNSPECIFIED 08/22/[address] active 8 TYPE 2 DIABETES MELLITUS WITH DIABETIC NEUROPATHY, UNSPECIFIED 08/22/[address] active 9 TYPE 2 DIABETES MELLITUS WITHOUT COMPLICATIONS 08/22/[address] active 10 UNSPECIFIED DEMENTIA, UNSPECIFIED SEVERITY, WITHOUT BEHAVIORAL DISTURBANCE, PSYCHOTIC DISTURBANCE, MOOD DISTURBANCE, AND ANXIETY 08/22/[address] active 11 UNSPECIFIED OSTEOARTHRITIS, UNSPECIFIED SITE 08/22/[address] active 12 UNSTEADINESS ON FEET 08/22/[address] active 13 WEAKNESS 08/22/[address] active Reason for Referral No Reasons for Referral Entered Social History Social History Observation Description Start Date End Date Code Code System Current Smoking Status Tobacco smoking consumption unknown 846870065 SNOMED CT Sex Assigned At Female 1950 83987-7 [facility] Vital Signs Code Code System Vitals Name Values and Units Timing Information 2339-0 [facility] Blood Sugar Value=1.0 Units=mg/dL 9279-1 [facility] Respiratory Rate Value=18.0 Units=/m in 09/04/2021 86501-4 [facility] O2 % BldC Oximetry Value=97.0 Units= % 09/04/2021 8462-4 [facility] Blood Pressure-Diastolic Value=78 Un its=mmHg 09/04/2021 8480-6 [facility] Blood Pressure-Systolic Bmmuh=054 Un its=mmHg 09/04/2021 8310-5 [facility] Body Temperature Value=98.9 Units= F 09/04/2021 8867-4 [facility] Heart rate Value=70.0 Units=/min 20847-3 [facility] Pain Level Value=0.0 09/04/2021 37533-8 [facility] Weight Mrcqt=545.0 Units=Lbs 12/2021
--- OUTSIDE RECORDS SUMMARY | 2024-09-07 13:49 | XMS_ITS ---
Author Organization [facility] Care Team Providers Care Men'S Leather Dress Belt Maker Name Role Phone Josefa Anna Unavailable Unavaila lore Roy, Demetri Mir Unavailable Unavailable Fahijose, Sarahi Unavailable Unavailable Allergies and adverse reactions No Known Allergies Care Team Name Role Address Phone Organization Dates Demetri Roy PCP [address] [place], [place], [facility] (Office): [facility] 11/14/2022 - 11/30/2022 Josefa Anna Attending Physician [address] [place], [place], [facility] (Office): : [facility] 11/14/2022 - 11/30/2022 Sarahi Urbano Attending Physician [address] [place] [address], [facility], [place] (Office): [facility] 11/14/2022 - 11/30/2022 Goals Section Description Status [...] 1 ACUTE HEMATOGENOUS OSTEOMYELITIS, OTHER SITES [address] active 2 ALZHEIMER'S DISEASE WITH LATE ONSET [address] active 3 ANEMIA IN CHRONIC KIDNEY DISEASE [address] active 4 CELLULITIS OF RIGHT TOE [address] active 5 COGNITIVE COMMUNICATION DEFICIT [address] active 6 DEMENTIA IN OTHER DISEASES CLASSIFIED ELSEWHERE, UNSPECIFIED SEVERITY, WITHOUT BEHAVIORAL DISTURBANCE, PSYCHOTIC DISTURBANCE, MOOD DISTURBANCE, AND ANXIETY [address] active 7 GASTRO-ESOPHAGEAL REFLUX DISEASE WITHOUT ESOPHAGITIS [address] active 8 HYPERLIPIDEMIA, UNSPECIFIED [address] active 9 HYPERTENSION SECONDARY TO ENDOCRINE DISORDERS [address] active 10 LOCAL INFECTION OF THE SKIN AND SUBCUTANEOUS TISSUE, UNSPECIFIED [address] active 11 FCI (CURRENT) USE OF INSULIN [address] active 12 MUSCLE WEAKNESS (GENERALIZED) [address] active 13 OTHER ABNORMALITIES OF GAIT AND MOBILITY [address] active 14 OTHER ACUTE OSTEOMYELITIS, RIGHT ANKLE AND FOOT [address] active 15 SCHIZOAFFECTIVE DISORDER, BIPOLAR TYPE 3 11/13/[address] completed 16 TYPE 2 DIABETES MELLITUS WITH DIABETIC CHRONIC KIDNEY DISEASE [address] active 17 TYPE 2 DIABETES MELLITUS WITH DIABETIC NEUROPATHY, UNSPECIFIED [address] active 18 TYPE 2 DIABETES MELLITUS WITH OTHER CIRCULATORY COMPLICATIONS [address] active 19 UNSPECIFIED ABNORMAL FINDINGS IN URINE [address] active 20 UNSPECIFIED PROTEIN-CALORIE MALNUTRITION [address] active 21 UNSTEADINESS ON FEET [address] active 22 OSTEOMYELITIS, UNSPECIFIED 3 11/13/[address] completed Reason for Referral No Reasons for Referral Entered Social History Social History Observation Description Start Date End Date Code Code System Current Smoking Status Tobacco smoking consumption unknown 605335471 SNOMED CT Sex Assigned At Female 1950 01384-8 [facility] Vital Signs Code Code System Vitals Name Values and Units Timing Information 02216-1 [facility] Weight Rponz=590.2 Units=Lbs 04/2023 8310-5 [facility] Body Temperature Value=97.5 Units= F 11/30/2022 2339-0 [facility] Blood Sugar Izqki=062.0 Units=mg/dL 11/30/2022 37450-6 [facility] Pain Level Value=0.0 11/30/2022 9279-1 [facility] Respiratory Rate Value=18.0 Units=/m in 11/23/2022 8462-4 [facility] Blood Pressure-Diastolic Value=74 Un its=mmHg 11/23/2022 8480-6 [facility] Blood Pressure-Systolic Xoamz=274 Un its=mmHg 11/23/2022 8867-4 [facility] Heart rate Value=70.0 Units=/min 09/2022 8302-2 [facility] Height Value=65.0 Units=Inches 11/20/2022 69163-6 [facility] O2 % BldC Oximetry Value=97.0 Units= % 11/16/2022
--- OUTSIDE RECORDS SUMMARY | 2024-09-07 13:49 | XMS_ITS ---
Author Organization [facility] Care Team Providers Care Big Data Platform Architect Name Role Phone Demetri Roy Unavailable Unavailable Allergies and adverse reactions No Known Allergies Care Team Name Role Address Phone Organization Dates Demetri Roy PCP [address] [place], [place], [facility], [place] (Office): : : [facility] 08/15/2021 - 08/22/2021 Mental Status Section [...] Concern Status 1 ALZHEIMER'S DISEASE 2 08/15/[address] completed 2 GASTRO-ESOPHAGEAL REFLUX DISEASE WITHOUT ESOPHAGITIS 2 08/15/[address] completed 3 IRON DEFICIENCY ANEMIA 2 08/15/[address] completed 4 OTHER HYPERLIPIDEMIA 2 08/15/[address] completed 5 SCHIZOAFFECTIVE DISORDER, BIPOLAR TYPE [address] active 6 SCHIZOAFFECTIVE DISORDER, BIPOLAR TYPE 2 08/15/[address] completed 7 ALZHEIMER'S DISEASE [address] active 8 ALZHEIMER'S DISEASE, UNSPECIFIED [address] active 9 ANEMIA, UNSPECIFIED [address] active 10 COVID-[address] active 11 ESSENTIAL (PRIMARY) HYPERTENSION [address] active 12 GASTRO-ESOPHAGEAL REFLUX DISEASE WITHOUT ESOPHAGITIS [address] active 13 IRON DEFICIENCY ANEMIA [address] active 14 OTHER HYPERLIPIDEMIA [address] active 15 [address]OPHRENIA [address] active 16 TYPE 2 DIABETES MELLITUS WITH DIABETIC NEUROPATHY, UNSPECIFIED [address] active Reason for Referral No Reasons for Referral Entered Social History Social History Observation Description Start Date End Date Code Code System Current Smoking Status Tobacco smoking consumption unknown 614351755 SNOMED CT Sex Assigned At Female 1950 05682-7 [facility] Vital Signs Code Code System Vitals Name Values and Units Timing Information 8462-4 [facility] Blood Pressure-Diastolic Value=68 Un its=mmHg 08/22/2021 8480-6 [facility] Blood Pressure-Systolic Vadvj=303 Un its=mmHg 08/22/2021 9279-1 [facility] Respiratory Rate Value=20.0 Units=/m in 08/22/2021 8310-5 [facility] Body Temperature Value=97.8 Units= F 08/22/2021 8867-4 [facility] Heart rate Value=86.0 Units=/min 08/2021 2339-0 [facility] Blood Sugar Ujfxw=579.0 Units=mg/dL 08/22/2021 86634-0 [facility] Pain Level Value=0.0 08/22/2021 15898-4 [facility] O2 % BldC Oximetry Value=96.0 Units= % 08/21/2021 39446-5 [facility] Weight Vubtm=952.1 Units=Lbs
--- OUTSIDE RECORDS SUMMARY | 2024-09-07 13:50 | XMS_ITS ---
Author Organization [facility] Address [address] [place] [address] Care Team Providers Care Animal Ride Attendant Name Role Phone Cherelle Corcoran MD Primary Care Pro vider Mark Queen MD Unavailable [phone] Rudolph Welch MD Unavailable Markie Ryan MD Unavailable Jimbo Strauss MD Unavailable [phone] Jaya Grier MD Unavailable Edgardo Kauffman MD Unavailable [phone] Dialysis Access Sites Type Status Location Placement Date Removal Da te Hemodialysis Cath Double 10/15/23 Tunneled catheter Right Internal Jugular Active Right Neck (side) - Anterior 10/15/2023 Procedures Procedure Name Priority Date/Time Associated Diagnosis Comments POCT HEMOGLOBIN A1C Routine 08/22/2024 8:55 AM SENIOR HOUSEKEEPER Type 2 diabetes mellitus with diabetic nephropathy, with long-term current use of insulin (HCC) RESPIRATORY PATHOGEN PANEL STAT 07/31 1:02 PM SENIOR HOUSEKEEPER DIABETIC EYE EXAM Routine 07/27/2024 12:37 PM SENIOR HOUSEKEEPER DIABETES EYE EXAM Routine 07/22/2024 XR CHEST 1 VIEW ED Urgent/IP Urgent 07/15/2024 1:11 PM SENIOR HOUSEKEEPER RPL DRE CVC W/O PUMP [id number] Routine 07/15 12:40 PM SENIOR HOUSEKEEPER ESRD (end stage renal disease) on dialysis (HCC) XR CHEST 1 VIEW ED Urgent/IP Urgent 07/14/2024 1:16 PM SENIOR HOUSEKEEPER EGFR STAT 07/14/2024 12:34 PM SENIOR HOUSEKEEPER DIFFERENTIAL AUTO STAT 07/14/2024 12:34 PM SENIOR HOUSEKEEPER BASIC METABOLIC PANEL STAT 07/14/2024 12:34 PM SENIOR HOUSEKEEPER CBC WITH AUTO DIFFERENTIAL STAT 07/14 12:34 PM SENIOR HOUSEKEEPER SURGICAL PATHOLOGY Routine 07/13/2024 11:10 AM SENIOR HOUSEKEEPER Anemia, unspecified type Gastritis without bleeding, unspecified chronicity, unspecified gastritis type ESOPHAGOGASTRODUODENOSCOPY BIOPSY 07/13/2024 11:03 AM SENIOR HOUSEKEEPER Anemia, unspecified type Gastritis without bleeding, unspecified chronicity, unspecified gastritis type EGD 07/13/2024 10:59 AM SENIOR HOUSEKEEPER POC BLOOD GAS AND CHEMISTRIE S, VENOUS Routine 07/13/2024 10:12 AM SENIOR HOUSEKEEPER TROPONIN T HIGH-SENSITIVITY 2-HOUR Timed 07/12/2024 1:59 PM SENIOR HOUSEKEEPER URINALYSIS, MICROSCOPIC ONLY STAT 1:05 PM SENIOR HOUSEKEEPER DRUGS OF ABUSE SCREEN, URINE WITHOUT CONFIRMATION STAT 07/12/2024 1:05 PM SENIOR HOUSEKEEPER URINE CULTURE STAT 07/12/2024 1:05 PM SENIOR HOUSEKEEPER URINALYSIS AND REFLEX TO MICROSCOPIC AND CULTURE STAT 07/12/2024 1:05 PM SENIOR HOUSEKEEPER THYROID FUNCTION CASCADE STAT 025 11:53 AM SENIOR HOUSEKEEPER EGFR STAT 07/12/2024 11:53 AM SENIOR HOUSEKEEPER DIFFERENTIAL AUTO STAT 07/12/2024 11:53 AM SENIOR HOUSEKEEPER TROPONIN T HIGH-SENSITIVITY SERIES (BASELINE, 2HR, 4HR, 6HR) STAT 07/12/2024 11:53 AM SENIOR HOUSEKEEPER CBC WITH AUTO DIFFERENTIAL STAT 07/12 11:53 AM SENIOR HOUSEKEEPER COMPREHENSIVE METABOLIC PANEL STAT 11:53 AM SENIOR HOUSEKEEPER INFLUENZA A/B, RSV, AND COVID-19 PCR Routine 07/12/2024 11:53 AM SENIOR HOUSEKEEPER ECG 12-LEAD STAT 07/12/2024 11:[address] FACIAL BONES WO CONTRAST ED 06/23 10:[address] CERVICAL SPINE WO CONTRAST ED 10:[address] HEAD WO CONTRAST ED 07/12/2024 10:38 AM SENIOR HOUSEKEEPER XR SHOULDER RIGHT 2 OR MORE VIEWS ED 07/12/2024 10:08 AM SENIOR HOUSEKEEPER XR SHOULDER LEFT 2 OR MORE VIEWS ED 07/12/2024 10:08 AM SENIOR HOUSEKEEPER POCT GLUCOSE DEVICE Routine 07/12/2024 9:33 AM SENIOR HOUSEKEEPER LIPID PANEL Routine 05/16/2024 10:14 AM SENIOR HOUSEKEEPER Mixed hyperlipidemia COLONOSCOPY 03/01/2024 8:49 AM CDT [...] (Constipation) 595 g Active FreeStyle Madhav 3 [facility] Use Madhav 3 reader to scan Madhav [...] current use of insulin ([facility]) 1 each by other route daily 100 strip [address] (PROTONIX) 40 mg EC tabletIndications :Gastroesophageal reflux disease without esophagitis TAKE 1 TABLET(40 MG) BY MOUTH TWICE DAILY 180 tablet 025 Active blood-glucose sensor (FreeStyle Madhav 3 Plus Sensor) deviceIndications :Type 2 diabetes mellitus with diabetic nephropathy, with long-term current use of insulin ([facility]) Use to continually monitor glucose, change sensor [...] 07/07/2024 Assessment & Plan (07/14/2024 2:30 PM SENIOR HOUSEKEEPER): Continue Lipitor Assessment & Plan (07/14/2024 8:56 AM SENIOR HOUSEKEEPER): Ok to restart atorvastatin, but also given [...] 11/02/2023 Assessment & Plan (07/14/2024 2:39 PM SENIOR HOUSEKEEPER): Patient is needing a Perma catheter exchange [...] proceed. Assessment & Plan (07/14/2024 8:51 AM SENIOR HOUSEKEEPER): Following with nephrology Assessment & Plan (01/06/2024 [...] 10/30/2023 Assessment & Plan (05/06/2024 7:49 AM SENIOR HOUSEKEEPER): Reviewed hospital discharge summary Now resolved Upcoming [...] stable Assessment & Plan (07/24/2023 1:51 PM SENIOR HOUSEKEEPER): Chronic/stable Parkinsonism 08/14/2022 Assessment & Plan (07/14/2024 8:54 AM SENIOR HOUSEKEEPER): Following with neurology, recommend reaching out to them in regards to restarting benztropine. Consider waiting until after restarts other medications given daughter reports tremors controlled off benztropine currently Assessment & Plan (11/10/2023 4:43 PM CDT): Following with neurology On cogentin Assessment & Plan (07/24/2023 1:50 PM SENIOR HOUSEKEEPER): Following with neurology On cogentin twice a day Assessment & Plan (01/23/2023 9:20 AM CDT): Following with neurology On cogentin twice a day Assessment & Plan (10/10/2022 10:41 AM CDT): Following with neurology On cogentin Assessment & Plan (08/14/2022 10:46 AM SENIOR HOUSEKEEPER): Following with neurology, reviewed note On cogentin [...] care Assessment & Plan (08/14/2022 10:47 AM SENIOR HOUSEKEEPER): Following with podiatry Assessment & Plan (04/02/2022 [...] renal consulted regarding volume management, possible terminal makeup operator dialysis planning, expedite OP f/u. Serologies and urine studies ordered. ED neg, compliments neg, cryoglobulin pending, ANCA pending, HIV neg. Continued -Added metolazone 2.5mg/daily per renal 09/13- with improving swelling, Cr bump to 2.33 so held further -Transitioned to PO agents prior to DC (09/17) with ongoing clinical improvement. Goal weight 155lbs -Home with family at [place], ticket sorter consulted to review salt restrictions. -outpatient BMP, [...] - renal consulted regarding volume management, possible nursing home dialysis planning, expedite OP f/u. Serologies and urine studies ordered. ED neg, compliments neg, cryoglobulin pending, ANCA pending, HIV neg. Continued -Added metolazone 2.5mg/daily per renal 09/13- with improving swelling, Cr bump to 2.33 so held further -Anticipate likely transition to PO agents prior to DC (?09/17) with ongoing clinical improvement. Goal weight 155lbs -Home with family at [place], ticket sorter consulted to review salt restrictions. Assessment & [...] renal consulted regarding volume management, possible terminal makeup operator dialysis planning, expedite OP f/u. Serologies and urine studies ordered. -Added metolazone 2.5mg/daily per renal. -Anticipate likely transition to PO agents prior to DC with ongoing clinical improvement. Goal weight 145-150lbs -Home with family at [place], ticket sorter consulted to review salt restrictions. Assessment & [...] renal consulted regarding volume management, possible terminal makeup operator dialysis planning, expedite OP f/u. Serologies and [...] - renal consulted regarding volume management, possible nursing home dialysis planning, expedite OP f/u. Serologies [...] - renal consulted regarding volume management, possible nursing home dialysis planning, expedite OP f/u. Assessment & [...] net neg 1/2-1L/day. -consider renal consult regarding nursing home dialysis planning, expedite OP f/u. Assessment & [...] neg 1/2-1L/day. -consider renal consult regarding terminal makeup operator dialysis planning. Assessment & Plan (09/06/2021 10:28 [...] 08/19/2021 Assessment & Plan (07/14/2024 8:53 AM SENIOR HOUSEKEEPER): Following with neurology Assessment & Plan (01/05/2024 10:40 PM CDT): Follows with neurology. -continue risperidone 2mg QHS -continue benztropine 2mg daily Assessment & Plan (11/10/2023 4:37 PM CDT): Following with neurology Assessment & Plan (07/24/2023 1:50 PM SENIOR HOUSEKEEPER): Following with neurology Assessment & Plan (01/23/2023 9:18 AM CDT): Following with neurology Assessment & Plan (10/10/2022 10:37 AM CDT): Following with neurology, ordered MRI, # given to son to schedule Assessment & Plan (06/09/2022 3:37 PM SENIOR HOUSEKEEPER): Needs to reschedule with neurology Looking into senior living, but declined for [facility] for schizoaffective disorder Assessment & Plan (01/14/2022 9:05 AM CDT): Following with psychiatry Assessment & Plan (09/03/2021 3:28 PM CDT): Chronic, stable. Alert, oriented to self, current place. Continue to monitor. Clock drawing test at next interval. Consideration for Aricept. Encounter for Medicare annual wellness exam 12/21 Assessment & Plan (11/10/2023 4:42 PM CDT): Reviewed [facility] & PHQ Screening PHQ-2 Total Score (If total score is 3 or more points, staff should administer the PHQ-9): 2 Hearing/vision screening reviewed, referrals placed as needed Fall risk reviewed Reviewed medications and supplements Specialists: endocrine, nephrology, cardiology, neurology, psychiatry evidence of cognitive impairment HCM: orders placed as needed Assessment & Plan (06/09/2022 3:37 PM SENIOR HOUSEKEEPER): Reviewed [facility] & PHQ Screening PHQ-2 Total Score [...] type Assessment & Plan (08/18/2024 8:44 AM SENIOR HOUSEKEEPER): Chronic, stable. Does not report any stephanie [...] discussed. Assessment & Plan (07/14/2024 8:54 AM SENIOR HOUSEKEEPER): Following with psychiatry, recommend reaching out to [...] psychiatry Assessment & Plan (07/24/2023 1:50 PM SENIOR HOUSEKEEPER): Following with psychiatry Assessment & Plan (01/23/2023 [...] discussed. Assessment & Plan (08/09/2021 5:42 AM SENIOR HOUSEKEEPER): Following with psychiatry Assessment & Plan (08/07/2021 3:28 PM SENIOR HOUSEKEEPER): Chronic condition, switch to Haldol and has had multiple different problems including acute kidney failure in infectious process. Records not available at outside [facility]. Confounded by delirium. Currently experiencing delirium will discontinue Haldol and return to Risperdal as previously taking. Risperdal was discontinued due to poorly-controlled diabetes. Monitor in 1 to 2 weeks. Assessment & Plan (07/03/2021 7:24 AM SENIOR HOUSEKEEPER): Following with psychiatry D/c risperidone, started on haldol Assessment & Plan (07/01/2021 9:16 PM SENIOR HOUSEKEEPER): Chronic, stable. 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 The patient previously lived on her own and was observed to be hoarding. See additional problems-dementia. Evaluate again in 1 month after starting Risperdal. Iron deficiency anemia 04/02/2020 Assessment & Plan (05/06/2024 7:51 AM SENIOR HOUSEKEEPER): Recommend discussing IV iron with nephrology Assessment & Plan (10/02/2020 4:35 PM CDT): Continue iron Assessment & Plan (05/28/2020 1:51 PM SENIOR HOUSEKEEPER): Iron levels recently normalized, but still anemic, repeat today Assessment & Plan (04/16/2020 11:45 AM CDT): Recent iron within normal limits, H/H improving, continue supplementation until normalized Gastroesophageal reflux disease without esophagi tis 04/02/2020 Assessment & Plan (07/14/2024 8:56 AM SENIOR HOUSEKEEPER): Restart protonix Upcoming EGD Assessment & Plan (01/05/2024 10:40 PM CDT): -continue famotidine Assessment & Plan (10/02/2020 4:35 PM CDT): Continue omeprazole Assessment & Plan (07/24/2020 2:06 PM SENIOR HOUSEKEEPER): Recurrent symptoms off omeprazole, restart Assessment & Plan (05/28/2020 1:51 PM SENIOR HOUSEKEEPER): Iron levels recently normalized, but still anemic, repeat today Assessment & Plan (04/02/2020 1:26 PM CDT): Start PPI History of amputation of toe 01/19/2020 Assessment & Plan (01/08/2021 3:50 PM CDT): Stable Assessment & Plan (10/02/2020 4:35 PM CDT): Stable Assessment & Plan (04/30/2020 1:00 PM SENIOR HOUSEKEEPER): Stable Assessment & Plan (02/14/2020 5:15 PM CDT): Healing well Following with surgeon/wound clinic Assessment & Plan (01/19/2020 5:17 PM CDT): Has home health Following with vascular Hypertension associated with diabetes 12/13/2019 Assessment & Plan (07/14/2024 2:32 PM SENIOR HOUSEKEEPER): Continue carvedilol, hydralazine Assessment & Plan (07/14/2024 8:51 AM SENIOR HOUSEKEEPER): BP controlled today off medication Daughter reports nephrology said could restart medication, is planning to restart coreg first and monitor blood pressure prior to restarting nifedipine/hydralazine Assessment & Plan (05/06/2024 7:48 AM SENIOR HOUSEKEEPER): BP controlled Continue nifedipine, hold prior to [...] x1 with HD. [facility] of hydralazine and nifedipine [...] amlodipine Assessment & Plan (08/03/2023 4:02 PM SENIOR HOUSEKEEPER): BP uncontrolled Start 5mg amlodipine Assessment & Plan (07/24/2023 1:49 PM SENIOR HOUSEKEEPER): Blood pressure borderline today off medications Assessment & Plan (01/23/2023 9:18 AM CDT): Blood pressure borderline low today, asymptomatic Checking labs Advised to decrease amlodipine to 5mg and monitor blood pressure Assessment & Plan (10/10/2022 10:50 AM CDT): Continue coreg 6.25mg twice a day & 40mg valsartan Assessment & Plan (08/14/2022 10:43 AM SENIOR HOUSEKEEPER): Blood pressure at goal, continue coreg 6.25mg twice a day Assessment & Plan (06/09/2022 3:32 PM SENIOR HOUSEKEEPER): Blood pressure at goal, continue coreg 3.125mg [...] day Assessment & Plan (08/05/2021 10:35 AM SENIOR HOUSEKEEPER): Blood pressure at goal Increase amlodipine to 10mg & d/c hydralazine per cardiology Assessment & Plan (05/28/2021 4:59 PM SENIOR HOUSEKEEPER): Blood pressure above goal, but previously within [...] lisinopril Assessment & Plan (08/28/2020 12:12 PM SENIOR HOUSEKEEPER): Blood pressure at goal Continue lisinopril Assessment & Plan (07/24/2020 2:05 PM SENIOR HOUSEKEEPER): Blood pressure at goal Continue lisinopril Assessment & Plan (05/28/2020 1:50 PM SENIOR HOUSEKEEPER): BP borderline Continue 10mg lisinopril Continue to monitor Assessment & Plan (04/30/2020 12:32 PM SENIOR HOUSEKEEPER): BP borderline Continue 10mg lisinopril Continue to [...] 08/30/2019 Assessment & Plan (07/14/2024 2:31 PM SENIOR HOUSEKEEPER): Controlled. Continue as per Endocrine and PCP Assessment & Plan (07/14/2024 8:50 AM SENIOR HOUSEKEEPER): Following with endocrine, reviewed note Holding insulin [...] +SSI Assessment & Plan (07/24/2023 1:49 PM SENIOR HOUSEKEEPER): Lab Results Component Value Date HGBA1C 8.1 [...] trulicity Assessment & Plan (08/14/2022 10:42 AM SENIOR HOUSEKEEPER): Following with endocrine Continue lantus, 12 units humalog TIDAC & 1.5mg trulicity Assessment & Plan (06/09/2022 3:32 PM SENIOR HOUSEKEEPER): Following with endocrine Home blood sugar at [...] for strict med oversight by family at [place] reviewed with daughter this admit. Assessment & [...] for strict med oversight by family at [place] reviewed with daughter this admit. Assessment & [...] and nephropathy. Med oversight by family at [place]. Assessment & Plan (09/14/2021 12:22 PM CDT): [...] as she had discussed this with outpatient knuckle strap sewer - repeat A1c - resume home statin, not currently on feliciano due to kidney function Assessment & Plan (08/05/2021 10:35 AM SENIOR HOUSEKEEPER): Continue 15 units lantus twice a day Assessment & Plan (07/03/2021 7:24 AM SENIOR HOUSEKEEPER): Fasting blood sugar significantly improved Risperidone changed Continue current meds Continue to monitor Assessment & Plan (06/18/2021 11:22 AM SENIOR HOUSEKEEPER): Increase lantus to 60 units nightly, if blood sugar still above goal after 1 week split into 33 units twice a day Follow up with blood sugar via portal in 2 weeks Continue jardiance 25mg Continue trulicity 4.5mg weekly Assessment & Plan (05/28/2021 4:58 PM SENIOR HOUSEKEEPER): Increase lantus to 55 units nightly Continue [...] weekly Assessment & Plan (08/28/2020 1:00 PM SENIOR HOUSEKEEPER): DM Care Plan: Meds: Lantus - continue [...] recheck Assessment & Plan (07/24/2020 2:05 PM SENIOR HOUSEKEEPER): Formulary change 2/2 insurance, switched to trulicity. Will increase to 1.5mg Assessment & Plan (05/28/2020 1:50 PM SENIOR HOUSEKEEPER): Check a1c Sixto isn't checking blood sugar regularly, but when she is she has several >200 so I lean towards increasing if a1c>7 Assessment & Plan (04/30/2020 12:31 PM SENIOR HOUSEKEEPER): Blood sugar improved on 40 units basaglar [...] materials from doctor or pharmacy Often 01/20/2024 [facility] Utilities Answer Date Recorded In the past 12 months has th e [employer], gas, oil, or water [employer] threatened to shut off services in your [...] week 04/20/2024 How often do you attend [facility] or zoroastrian services? More than 4 times [...] the past 12 m [facility], were you homeless or living in a [...] file Legal Sex Female 9:03 AM SENIOR HOUSEKEEPER Gender Identity Female 02/08/2020 6:39 PM CDT Sexual Orientation Not on file Last Filed Vital Signs Vital Sign Reading Time Taken Comments Blood Pressure 110/56 08/31/2024 2:38 PM CDT Pulse 74 08/31/2024 2:38 PM CDT Temperature 36.3 C (97.3 F) 07/31/2024 12:52 PM SENIOR HOUSEKEEPER Respiratory Rate 16 07/31/2024 12:52 PM SENIOR HOUSEKEEPER Oxygen Saturation 97% 08/31/2024 2:38 PM CDT Inhaled Oxygen Concentration - - Weight 60.1 kg (132 lb 6.4 oz) 08/31/2024 2:38 P M CDT Height 157.5 cm (5' 2 ) 08/22/2024 8:51 AM SENIOR HOUSEKEEPER Body Mass Index 24.22 08/22/2024 8:51 AM SENIOR HOUSEKEEPER Results * POCT hemoglobin A1c (08/22/2024 8:55 AM SENIOR HOUSEKEEPER) Pathologist [facility] Hemoglobin A1C, POC 7.7 4.0 - 5.6 % Blood 08/22/2024 8:55 AM SENIOR HOUSEKEEPER Smith Gibbs MD POINT OF CARE TEST ORDERABLE S Final Result * Respiratory pathogen panel Nasopharyngeal (07/31/2024 1:02 PM SENIOR HOUSEKEEPER) Pathologist [facility] Influenza A RNA Not Detected Not Detected [facility] Influenza B RNA Not Detected Not Detected [facility] RSV RNA Not Detected Not Detected [facility] COVID-19 RNA Not Detected Not Detected [facility] Coronavirus 229E RNA Not Detected Not Detected [facility] Coronavirus HKU1 RNA Not Detected Not Detected [facility] Coronavirus NL63 RNA Not Detected Not Detected [facility] Coronavirus OC43 RNA Not Detected Not Detected [facility] Adenovirus DNA Not Detected Not Detected [facility] Metapneumovirus RNA Not Detected Not Detected [facility] Rhinovirus/Enterov irus RNA Not Detected Not Detected [facility] Parainfluenza 1 RNA Not Detected Not Detected [facility] Parainfluenza 2 RNA Not Detected Not Detected [facility] Parainfluenza 3 RNA Not Detected Not Detected [facility] Parainfluenza 4 RNA Not Detected Not Detected [facility] B. pertussis DNA Not Detected Not Detected [facility] B. parapertussis DNA Not Detected Not Detected [facility] C. pneumoniae DNA Not Detected Not Detected [facility] M. pneumoniae DNA Not Detected Not Detected [facility] Comment: Interpretive Data [facility] FilmArray Respiratory Panel (RP2.1) assay is a [...] assay has FDA clearance for testing of MEMS DEVICE SCIENTIST swabs. The performance characteristics of this assay have been determined by [facility]. Current interpretive data was last revised on 2021. Nasopharyngeal 07/31/2024 1: 02 PM SENIOR HOUSEKEEPER 07/31/2024 1:05 PM SENIOR HOUSEKEEPER Narrative NILSA - 07/31/2024 2:05 PM SENIOR HOUSEKEEPER Is the Patient experiencing symptoms consistent with COVID?->Yes Surveillance testing for transplant patient?->No Lucy Lucero MD LAB MICROBIOLOGY - [facility] ORDERABLES Final Result NILSA [id number] [place] [address] * Diabetic Eye Exam (07/27/2024 12:37 PM SENIOR HOUSEKEEPER) Historical Provider HEALTH MAINTENANCE Final Result * HM DIABETES EYE EXAM (07/22/2024) Historical Provider HEALTH MAINTENANCE Final Result * XR Chest 1 View (07/15/2024 1:11 PM SENIOR HOUSEKEEPER) Anatomical Region Laterality Modality Body, Chest N/A Computed Radiogr aphy 07/15/2024 1:35 PM SENIOR HOUSEKEEPER Narrative 07/15/2024 1:36 PM SENIOR HOUSEKEEPER EXAM DESCRIPTION: XR CHEST 1 VIEW REASON [...] Yosef Lindo D.O. PS T: Report ID: [id number] Reading Location: [id number] Procedure Note Yosef Lindo, DO - 07/15/2024 [...] Yosef Lindo D.O. PS T: Report ID: [id number] Reading Location: [id number] us Edgardo Kauffman MD IMG XR PROCEDURES Final Re sult * RPL DRE CVC W/O PUMP [id number] (07/15/2024 12:40 PM SENIOR HOUSEKEEPER) Anatomical Region Laterality Modality X-Ray Angiograph y Narrative 07/15/2024 12:45 PM SENIOR HOUSEKEEPER Please see OpNote for result. us Edgardo Kauffman MD CV CARDIAC CATH PROCEDURES Final Result * XR Chest 1 View (07/14/2024 1:16 PM SENIOR HOUSEKEEPER) Anatomical Region Laterality Modality Body, Chest N/A Computed Radiogr aphy 07/14/2024 1:20 PM SENIOR HOUSEKEEPER Narrative 07/14/2024 1:22 PM SENIOR HOUSEKEEPER EXAM DESCRIPTION: XR CHEST 1 VIEW REASON [...] Salvador Villa M.D. KR T: Report ID: [id number] Reading Location: [id number] Procedure Note Salvador Villa MD - 07/14/2024 [...] Salvador Villa M.D. KR T: Report ID: [id number] Reading Location: [place] [id number] Edgardo Kauffman MD IMG XR PROCEDURES Final Re sult * (ABNORMAL) eGFR (07/14/2024 12:34 PM SENIOR HOUSEKEEPER) Pathologist [facility] eGFR 7(L) >=60 mL/min/1. 73 m2 Comment: [...] reviewed 2021. Blood 07/14/2024 12:3 4 PM SENIOR HOUSEKEEPER 07/14/2024 12:41 PM SENIOR HOUSEKEEPER Edgardo Kauffman MD LAB BLOOD ORDERABLES Final Result [facility]LOS [id number] [id number] [facility] Department [place] [address] * (ABNORMAL) Differential, auto (07/14/2024 12:34 PM SENIOR HOUSEKEEPER) Neutrophil abs 7.8(H) 1.5 - 6.5 K/cumm Imm gran abs 0.0 0.0 - 0.1 K/cumm [facility] Lymphocyte abs 1.5 0.8 - 3.3 K/cumm [facility] Monocyte abs 0.5 0.2 - 0.8 K/cumm [facility] Eosinophil abs 0.2 0.0 - 0.5 K/cumm [facility] Basophil abs 0.0 0.0 - 0.1 K/cumm [facility] Neutrophil pct 78.1 % [facility] Comment: Interpretive Data Percent cell count reference ranges are not reported, since discordance with absolute values may lead to misinterpretation of CBC data. Current Interpretive Data was last revised on 2017. Imm gran pct 0.4 % [facility] Comment: Interpretive Data Percent cell count reference ranges are not reported, since discordance with absolute values may lead to misinterpretation of CBC data. Current Interpretive Data was last revised on 2017. Lymphocyte pct 14.8 % [facility] Comment: Interpretive Data Percent cell count reference ranges are not reported, since discordance with absolute values may lead to misinterpretation of CBC data. Current Interpretive Data was last revised on 2017. Monocyte pct 4.7 % [facility] Comment: Interpretive Data Percent cell count reference ranges are not reported, since discordance with absolute values may lead to misinterpretation of CBC data. Current Interpretive Data was last revised on 2017. Eosinophil pct 1.6 % [facility] Comment: Interpretive Data Percent cell count reference ranges are not reported, since discordance with absolute values may lead to misinterpretation of CBC data. Current Interpretive Data was last revised on 2017. Basophil pct 0.4 % [facility] [facility] Comment: Interpretive Data Percent cell count reference ranges are not reported, since discordance with absolute values may lead to misinterpretation of CBC data. Current Interpretive Data was last revised on 2017. Blood 07/14/2024 12:3 4 PM SENIOR HOUSEKEEPER 07/14/2024 12:41 PM SENIOR HOUSEKEEPER us Edgardo Kauffman MD LAB BLOOD ORDERABLES Final Result [place] [id number] [facility] [place] [address] * (ABNORMAL) CBC with auto differential (07/14/2024 12:34 PM SENIOR HOUSEKEEPER) [facility] WBC 9.9 3.8 - 9.9 K/cumm Hgb 11.6(L) 11.9 - 15.5 g/dL [facility] Hct 35.3(L) 35.6 - 45.5 % [facility] Plt 241 150 - 400 K/cumm [facility] MPV 11.0 9.1 - 12.[address] [facility] RBC 3.63(L) 3.90 - 5.20 M/cumm [facility] MCV 97.2(H) 81.3 - 96.[address] [facility] MCH 32.0 27.1 - 33.[address] [facility] MCHC 32.9 32.3 - 35.7 g/dL [facility] RDW CV 15.4(H) 11.1 - 14.9 % [facility] RDW SD 54.8(H) 35.7 - 48.[address] [facility] NRBC abs 0.00 0.00 - 0.01 K/cumm [facility] Blood 07/14/2024 12:3 4 PM SENIOR HOUSEKEEPER 07/14/2024 12:41 PM SENIOR HOUSEKEEPER us Edgardo Kauffman MD LAB BLOOD ORDERABLES Final Result Performing Organization Address [facility]/ZIP Co de Phone Number [address] Department [place] [address] * (ABNORMAL) Basic metabolic panel (07/14/2024 12:34 PM SENIOR HOUSEKEEPER) [facility] Sodium 138 135 - 145 mmol/L Potassium, pl 4.1 3.3 - 4.9 mmol/L [facility] Comment:Hemolyzed; Potassium value may be falsely elevated by as much as 1.0 mmol/L. Suggest redraw and reanalysis. Chloride 100 97 - 110 mmol/L [facility] CO2 25 22 - 32 mmol/L [facility] Anion gap 13 2 - 15 mmol/L [facility] BUN 51(H) 6 - 25 mg/dL [facility] Creatinine 6.22(H) 0.60 - 1.10 mg/dL [facility] Glucose 155 70 - 199 mg/dL [facility] Comment: Interpretive Data Fasting glucose >/= [...] 2022. Calcium 9.4 8.5 - 10.3 mg/dL [facility] Blood 07/14/2024 12:3 4 PM SENIOR HOUSEKEEPER 07/14/2024 12:41 PM SENIOR HOUSEKEEPER Edgardo Kauffman MD LAB BLOOD ORDERABLES Final Result [address] Department of Laboratories [place] [phone] * Surgical pathology (07/13/2024 11:10 AM SENIOR HOUSEKEEPER) Tissue (Duodenum, Biopsy) 07/13/2024 11:10 AM SENIOR HOUSEKEEPER Tissue (Gastric/Stomach biopsy) 07/13/2024 11:11 AM SENIOR HOUSEKEEPER Tissue (Gastric/Stomach biopsy) 07/13/2024 11:11 AM SENIOR HOUSEKEEPER Tissue (Esophageal biopsy) 07/13/2024 11:13 AM SENIOR HOUSEKEEPER Narrative PATHOLOGY [facility] - 07/14/2024 1:59 PM SENIOR HOUSEKEEPER [facility] Department of Pathology [facility] [place], [place] [address] Note to Patients: This report may contain [...] : 1950 (Age: 73) Gender: F Address: [address] [place] [address] Hospital #: [id number] Service: Gastro Location: Patient Type: [facility] OUTPATIENT Taken: 07/13/2024 Received: 07/13/2024 [...] cm. Entirely submitted. Labeled D1. Jar 0. [facility]/07/13/2024 13:31 CAMILA Johnson, PA (ASCP) Microscopic slide review and interpretation for this case was performed at [facility], Department of Surgical Pathology, [address] [facility] [place], [place] [id number], [place] [address] [place] # [id number] us Jaya Grier MD LAB PATHOLOGY ORDERABLES Final R esult PATHOLOGY [facility] * EGD (07/13/2024 10:59 AM SENIOR HOUSEKEEPER) Anatomical Region Laterality Modality Other Narrative Procedure Note Jaya Grier MD - 07/13/2024 10:59 AM CST [facility] GI ENDOSCOPY Patient Name: Sixto Chakraborty Procedure Date: 07/13/2024 10:59 AM Date of : 1950 Admit Type: Outpatient Age: 73 Gender: Female Attending MD: Jaya Grier M.D. Room: [facility] ENDOSCOPY ROOM 06 Note Status: [...] On: 07/13/2024 10:59 AM Recognized by the [employer] for promoting quality in endoscopy Jaya Grier MD ENDOSCOPY PROCEDURES Final Resul t * (ABNORMAL) POC Blood Gas and Chemistries, Venous - (07/13/2024 10:12 AM SENIOR HOUSEKEEPER) pH,chris POC 7.40 7.32 - 7.43 pCO2, chris POC 49 40 - [address] [facility] pO2,chris POC [address] [facility] Comment: Interpretive Data No reference range established. Current interpretive data was last revised 2020. HCO3, chris (Calc) POC 30 20 - 30 mmol/L [facility] Base excess, chris POC 4 mmol/L [facility] Comment: Interpretive Data No reference range established. Current interpretive data was last revised 2020. Hemoglobin, chris POC 13.9 11.9 - 15.5 g/dL [facility] Hematocrit, chris POC 41.0 35.6 - 45.5 % [facility] Sodium, chris POC 134(L) 135 - 145 mmol/L [facility] Potassium, chris POC 4.6 3.3 - 4.9 mmol/L [facility] Comment: Interpretive Data This method is not able to assess for hemolysis, which may falsely increase potassium concentrations. If further testing is needed to evaluate this result, consider in-laboratory plasma potassium. Current Interpretive Data was last revised on 2022. Glucose, chris POC 145 70 - 199 mg/dL [facility] Ionized Calcium, chris POC 4.70 4.50 - 5.10 mg/dL N[facility] Blood 07/13/2024 10:1 2 AM SENIOR HOUSEKEEPER 07/13/2024 10:12 AM SENIOR HOUSEKEEPER Jaya Grier MD LAB POCT ORDERABLES - DEVICE Fin al Result Performing Organization Address [facility] Co de Phone Number [address] [place] [address] * (ABNORMAL) Troponin T high-sensitivity 2-hour (07/12/2024 1:59 PM SENIOR HOUSEKEEPER) Trop T hs 63(H) <=14 ng/L Comment: Interpretive Data For further hscTnT resources including the diagnostic algorithm and an aid in interpretation, copy and paste this link: https://nrl.testcatalog.org/show/hsTrop Current Interpretive Data last revised 2020. Testing performed by: [address] [address] Trop T hs delta -5 ng/L N[facility] Comment:Testing performed by : [address] [address] Trop T hs interp Equivocal [facility] Comment:Testing performed by : [address] [address] Blood 07/12/2024 1:59 PM SENIOR HOUSEKEEPER 07/12/2024 2:20 PM SENIOR HOUSEKEEPER Donna CUEVA LAB BLOOD ORDERABLES Final Re sult Performing Organization Address [facility] Co de Phone Number [facility] [address] [facility] [employer] [place], [place] [id number] * (ABNORMAL) Urinalysis reflex to microscopic and culture Urine (07/12/2024 1:05 PM SENIOR HOUSEKEEPER) Color, ur Mikayla Yellow Comment:Testing performed by : [address] [address] Clarity, ur Turbid(A) Clear NILSA Comment:Testing performed by : [address] [address] Specific gravity, ur 1.006 1.003 - 1.030 N[facility] Comment:Testing performed by : [address] [address] pH, urine 6.0 [facility] Comment: Interpretive Data U rine pH is affected by diet, medications, systemic acid-base disturbances, and renal tubular function. pH may affect urinary stone formation. For example, urine pH below 6.0 may help reduce the tendency for calcium phosphate stones and pH greater than 6.0 may reduce the tendency for uric acid stone formation. Source: [facility] Nu[employer] Current Interpretive Data was last revised on 2017 Testing performed by: [address] [address] Protein, ur ql 2+(A) Negative NILSA Comment:Testing performed by : [address] [address] Glucose, ur ql 1+(A) Negative [facility] Comment:Testing performed by : [address] [address] Ketones, ur Negative Negative [facility] Comment:Testing performed by : [address] [address] Bilirubin, ur Negative Negative N[facility] Comment:Testing performed by : [address] [address] Blood, ur 2+(A) Negative N[facility] Comment:Testing performed by : [address] [address] Urobilinogen, ur <2.0 <2.0 mg/dL [facility] Comment:Testing performed by : [address] [address] Nitrite, ur Negative Negative [facility] Comment:Testing performed by : [address] [address] Leukocyte esterase, ur 4+(A) Negative N[facility] Comment:Testing performed by : [address] [address] UA reflex comment Reflex to microscopic UA will be performed. [facility] Comment:Testing performed by : [address] [address] Urine 07/12/2024 1:05 PM SENIOR HOUSEKEEPER 07/12/2024 1:09 PM SENIOR HOUSEKEEPER Donna CUEVA LAB MICROBIOLOGY - GENERAL OR DERABLES Final Result NILSA [address] [facility] Department of Laboratories [place], [place] [id number] * Drugs of Abuse Screen, Urine without Confirmation (07/12/2024 1:05 PM SENIOR HOUSEKEEPER) Amphetamine, ur Not Detected CutOff 500ng/mL Comment: Interpretive Data - Amphetamines: Samples containing greater than 500 ng/mL d-methamphetamine or other cross-reacting amphetamine compounds are reported as positive. Amphetamine immunoassays are subject to significant false positive rates due to cross-reactivity of non-amphetamine drugs. Confirmatory testing required for definitive results. Current Interpretive Data was last reviewed 2023. Testing performed by: [address] [address] Barbiturates, ur Not Detected CutOff 200ng/mL [facility] Comment: Interpretive Data - Barbiturates: Samples containing greater than 200 ng/mL secobarbital or other cross-reacting barbiturate compounds are reported as positive. False positive and false negative results are possible. Confirmatory testing required for definitive results. Current Interpretive Data was last reviewed 2023. Testing performed by: [address] [address] Benzodiazepines, ur Not Detected CutOff 100ng/mL [facility] Comment: Interpretive Data - Benzodiazepines: Samples containing greater than 100 ng/mL nordiazepam or other cross-reacting compounds are reported as positive. False positive and false negative results are possible. Confirmatory testing required for definitive results. Current Interpretive Data was last reviewed 2023. Testing performed by: [address] [address] Cannabinoids, ur Not Detected CutOff 50 ng/mL [facility] Comment: Interpretive Data - Cannabinoids: Samples containing greater than 50 ng/mL delta-9 THC -COOH or other cross- reacting compounds are reported as positive. False positive and false negative results are possible. Confirmatory testing required for definitive results. Current Interpretive Data was last reviewed 2023. Testing performed by: [facility], [address] [place] [address]., [address] Cocaine, ur Not Detected CutOff 150ng/mL [facility] Comment: Interpretive Data - Cocaine: Samples containing greater than 150 ng/mL benzoylecgonine or other cross- reacting compounds are reported as positive. False positive and false negative results are possible. Confirmatory testing required for definitive results. Current Interpretive Data was last reviewed 2023. Testing performed by: [address], [place]., [address] Fentanyl, Ur Not Detected Cutoff 1 ng/mL [facility] Comment: Interpretive Data - Fentanyl: Samples containing greater than 1 ng/mL fentanyl or other cross-reacting fentanyl compounds are reported as positive. False positive and false negative results are possible. Confirmatory testing required for definitive results. Current Interpretive Data was last reviewed 2023. Testing performed by: [facility], [address] [place] [address]., [address] Methadone, ur Not Detected CutOff 300ng/mL [facility] Comment: Interpretive Data - Methadone: Samples containing greater than 300 ng/mL d,l-methadone or other cross-reacting compounds are reported as positive. False positive and false negative results are possible. Confirmatory testing required for definitive results. Current Interpretive Data was last reviewed 2023. Testing performed by: [address] [address] Opiates, ur Not Detected CutOff 300ng/mL [facility] Comment: Interpretive Data - Opiates: Samples containing greater than 300 ng/mL morphine or other cross-reacting compounds are reported as positive. False positive and false negative results are possible. Confirmatory testing required for definitive results. Current Interpretive Data was last reviewed 2023. Testing performed by: [facility], [address] [place] [address]., [address] Oxycodone, ur Not Detected CutOff 100ng/mL [facility] Comment: Interpretive Data - Oxycodone: Samples containing greater than 100 ng/mL oxycodone or other cross-reacting compounds are reported as positive. False positive and false negative results are possible. Confirmatory testing required for definitive results. Current Interpretive Data was last reviewed 2023. Testing performed by: [address] [address] Phencyclidine, ur Not Detected CutOff 25 ng/mL [facility] Comment: Interpretive Data - Phencyclidine: Samples containing greater than 25 ng/mL phencyclidine or other cross-reacting compounds are reported as positive. False positive and false negative results are possible. Confirmatory testing required for definitive results. Current Interpretive Data was last reviewed 2023. Testing performed by: [address] [address] Urine Creatinine 74 mg/dL [facility] Comment: Interpretive Data Urine Creatinine: < 10 mg/dL is extremely dilute = or > 10 but < 20 mg/dL is dilute = or > 20 mg/dL is normal Current Interpretive Data was last revised on 2017. Testing performed by: [address] [address] Urine 07/12/2024 1:05 PM SENIOR HOUSEKEEPER 07/12/2024 1:09 PM SENIOR HOUSEKEEPER Narrative NILSA - 07/12/2024 1:31 PM SENIOR HOUSEKEEPER Drug of Abuse screening is performed by immunoassay for medical purposes only. This is not to be used for Pain Management purposes. Donna CUEVA LAB URINE ORDERABLES Final Re sult [facility] [address] [facility] Department [place] [address] * (ABNORMAL) Urinalysis, microscopic only (07/12/2024 1:05 PM SENIOR HOUSEKEEPER) WBC, ur >50(A) 0 - 5 /HPF Comment:Testing performed by : [address] [address] RBC, ur 11-20(A) 0 - 2 /HPF NIL[facility] Comment:Testing performed by : [address] [address] Bacteria, ur 4+(A) NILSA Comment:Testing performed by : [facility], [address] [place] [address]., [address] Culture Reflex Comment Reflex to urine culture will be performed. NILSA Comment:Testing performed by : [facility], [address] [place] [address]., [address] Urine 07/12/2024 1:05 PM SENIOR HOUSEKEEPER 07/12/2024 1:09 PM SENIOR HOUSEKEEPER Donna CUEVA LAB URINE ORDERABLES Final Re sult Performing Organization Address [facility]/ZIP Co de Phone Number NILSA [address] [facility] [place] [address] * (ABNORMAL) Urine culture Urine (07/12/2024 1:05 PM SENIOR HOUSEKEEPER) Report Final Report: Greater than or equal to 100,000 colonies/mL of Escherichia coli (.) Comment:Testing performed by : [facility], [address] [place]., [address] Organism ESCHERICHIA COLI NILSA Urine 07/12/2024 1:05 PM SENIOR HOUSEKEEPER 07/12/2024 3:03 PM SENIOR HOUSEKEEPER Narrative NILSA - 07/14/2024 2:20 PM SENIOR HOUSEKEEPER Urine culture reflexed based upon urinalysis results. Testing performed by [facility] Microbiology Laboratory ([phone]) Organism Antibiotic Method Susceptibility Escherichia coli Ampicillin [...] - GENERAL OR DERABLES Final Result NILSA [address] [facility] [address] * (ABNORMAL) Troponin T high-sensitivity series (baseline, 2hr, 4hr, 6hr) (07/12/2024 11:53 AM SENIOR HOUSEKEEPER) Pathologist [facility] Trop T hs 68(H) <=14 ng/L Comment: REDRAW: HEMOLYZED SPECIMEN Interpretive Data For further hscTnT resources including the diagnostic algorithm and an aid in interpretation, copy and paste this link: https://nrl.testcatalog.org/show/hsTrop Current Interpretive Data last revised 2020. Testing performed by: [address] [address] Blood 07/12/2024 11:5 3 AM SENIOR HOUSEKEEPER 07/12/2024 11:58 AM SENIOR HOUSEKEEPER Donna CUEVA LAB BLOOD ORDERABLES Final Re sult NILSA [address] [facility] Department [place] [address] * Influenza A/B, RSV, and COVID-19 PCR Nasopharyngeal (07/12/2024 11:53 AM SENIOR HOUSEKEEPER) [facility] COVID-19 RNA Negative Negative Comment:Testing performed by : [address] [address] Influenza A RNA Negative Negative NILSA Comment:Testing performed by : [address] [address] Influenza B RNA Negative Negative NILSA Comment:Testing performed by : [address] [address] RSV RNA Negative Negative NILSA Comment: Interpretive data: Testing performed by [facility]. This test is performed using the [employer] Xpert Xpress CoV-2/Flu/RSV plus assay. This is a multiplex, real-time reverse transcriptase PCR assay intended for the qualitative detection of nucleic acid from SARS-CoV-2, influenza A, influenza B, and respiratory syncytial virus. This assay has been cleared by the [place] Food and Drug administration. The performance characteristics have been verified by the [facility]. Results must be considered in the clinical context, and a negative result does not rule out infection. Interpretive Data last revised 2023 Testing performed by: [address] [address] Nasopharyngeal 07/12/2024 11 :53 AM SENIOR HOUSEKEEPER 07/12/2024 11:58 AM SENIOR HOUSEKEEPER Narrative NILSA - 07/12/2024 12:38 PM SENIOR HOUSEKEEPER Is the Patient experiencing symptoms consistent with COVID?->Unknown Donna CUEVA LAB MICROBIOLOGY - GENERAL OR DERABLES Final Result NILSA [address] [facility] Department [place] [address] * (ABNORMAL) eGFR (07/12/2024 11:53 AM SENIOR HOUSEKEEPER) eGFR 10(L) >=60 mL/min/1. 73 m2 Comment: [...] last reviewed 2021. Testing performed by: [facility], [address] [place] [address]., [address] Blood 07/12/2024 11:5 3 AM SENIOR HOUSEKEEPER 07/12/2024 11:58 AM SENIOR HOUSEKEEPER us Donna CUEVA LAB BLOOD ORDERABLES Final Re sult NILSA [address] [facility] Department [place] [address] * (ABNORMAL) Differential, auto (07/12/2024 11:53 AM SENIOR HOUSEKEEPER) Neutrophil abs 9.2(H) 1.5 - 6.5 K/cumm Comment:Testing performed by : [address] [address] Imm gran abs 0.1 0.0 - 0.1 K/cumm NILSA Comment:Testing performed by : [address] [address] Lymphocyte abs 1.5 0.8 - 3.3 K/cumm NILSA Comment:Testing performed by : [address] [address] Monocyte abs 0.5 0.2 - 0.8 K/cumm NILSA Comment:Testing performed by : [address] [address] Eosinophil abs 0.1 0.0 - 0.5 K/cumm [facility] Comment:Testing performed by : [address] [address] Basophil abs 0.0 0.0 - 0.1 K/cumm [facility] Comment:Testing performed by : [address] [address] Neutrophil pct 81.0 % [facility] Comment: Interpretive Data Percent cell count reference ranges are not reported, since discordance with absolute values may lead to misinterpretation of CBC data. Current Interpretive Data was last revised on 2017. Testing performed by: [address] [address] Imm gran pct 0.4 % [facility] Comment: Interpretive Data Percent cell count reference ranges are not reported, since discordance with absolute values may lead to misinterpretation of CBC data. Current Interpretive Data was last revised on 2017. Testing performed by: [address] [address] Lymphocyte pct 13.4 % [facility] Comment: Interpretive Data Percent cell count reference ranges are not reported, since discordance with absolute values may lead to misinterpretation of CBC data. Current Interpretive Data was last revised on 2017. Testing performed by: [address] [address] Monocyte pct 4.2 % [facility] Comment: Interpretive Data Percent cell count reference ranges are not reported, since discordance with absolute values may lead to misinterpretation of CBC data. Current Interpretive Data was last revised on 2017. Testing performed by: [address] [address] Eosinophil pct 0.6 % [facility] Comment: Interpretive Data Percent cell count reference ranges are not reported, since discordance with absolute values may lead to misinterpretation of CBC data. Current Interpretive Data was last revised on 2017. Testing performed by: [address] [address] Basophil pct 0.4 % [facility] Comment: Interpretive Data Percent cell count reference ranges are not reported, since discordance with absolute values may lead to misinterpretation of CBC data. Current Interpretive Data was last revised on 2017. Testing performed by: [address] [address] Blood 07/12/2024 11:5 3 AM SENIOR HOUSEKEEPER 07/12/2024 11:58 AM SENIOR HOUSEKEEPER Donna CUEVA LAB BLOOD ORDERABLES Final Re sult NILSA [address] [facility] Department of Laboratories [place], [place] [id number] * Thyroid Function [place] (07/12/2024 11:53 AM SENIOR HOUSEKEEPER) TSH 1.22 0.30 - 4.20 mcIUnit/mL Comment:Testing performed by : [address] [address] Blood 07/12/2024 11:5 3 AM SENIOR HOUSEKEEPER 07/12/2024 11:58 AM SENIOR HOUSEKEEPER us Donna CUEVA LAB BLOOD ORDERABLES Final Re sult NILSA [address] [facility] Department [place] [address] * (ABNORMAL) CBC with auto differential (07/12/2024 11:53 AM SENIOR HOUSEKEEPER) WBC 11.3(H) 3.8 - 9.9 K/cumm Comment:Testing performed by : [address] [address] Hgb 12.3 11.9 - 15.5 g/dL NILSA Comment:Testing performed by : [address] [address] Hct 37.2 35.6 - 45.5 % NILSA Comment:Testing performed by : [address] [address] Plt 230 150 - 400 K/cumm NILSA Comment:Testing performed by : [address] [address] MPV 10.7 9.1 - 12.3 fL NILSA Comment:Testing performed by : [address] [address] RBC 3.85(L) 3.90 - 5.20 M/cumm NILSA Comment:Testing performed by : [address] [address] MCV 96.6(H) 81.3 - 96.4 fL NILSA Comment:Testing performed by : [address] [address] MCH 31.9 27.1 - 33.3 pg NILSA Comment:Testing performed by : [address] [address] MCHC 33.1 32.3 - 35.7 g/dL NILSA Comment:Testing performed by : [address] [address] RDW CV 15.7(H) 11.1 - 14.9 % NILSA Comment:Testing performed by : [address] [address] RDW SD 55.5(H) 35.7 - 48.1 fL NILSA RODRIGES Comment:Testing performed by : [address] [address] NRBC abs 0.00 0.00 - 0.01 K/cumm NILSA RODRIGES Comment:Testing performed by : [address] [address] Blood 07/12/2024 11:5 3 AM SENIOR HOUSEKEEPER 07/12/2024 11:58 AM SENIOR HOUSEKEEPER us Donna CUEVA LAB BLOOD ORDERABLES Final Re sult NILSA [address] [facility] Department [place] [address] * (ABNORMAL) Comprehensive metabolic panel (07/12/2024 11:53 AM SENIOR HOUSEKEEPER) Sodium 134(L) 135 - 145 mmol/L Comment:Testing performed by : [address] [address] Potassium, pl 4.6 3.3 - 4.9 mmol/L NILSA RODRIGES Comment: HEMOLYZED: Hemolysis interferes with the above test. Testing performed by: [address] [address] Chloride 93(L) 97 - 110 mmol/L NILSA RODRIGES Comment:Testing performed by : [address] [address] CO2 28 22 - 32 mmol/L NILSA RODRIGES Comment:Testing performed by : [address] [address] Anion gap 13 2 - 15 mmol/L NILSA RODRIGES Comment:Testing performed by : [address] [address] BUN 33(H) 6 - 25 mg/dL NILSA RODRIGES Comment:Testing performed by : [address] [address] [address] Creatinine 4.60(H) 0.60 - 1.10 mg/dL NILSA RODRIGES Comment:Testing performed by : [address] [address] Glucose 177 70 - 199 mg/dL [facility] Comment: Interpretive Data Fasting glucose >/= 126 [...] was last revised 2022. Testing performed by: [address] [address] Calcium 9.5 8.5 - 10.3 mg/dL NILSA Comment:Testing performed by : [address] [address] Bilirubin, total 0.4 0.1 - 1.2 mg/dL [facility] Comment:Testing performed by : [address] [address] Protein, pl 8.2 6.5 - 8.5 g/dL [facility] Comment:Testing performed by : [address] [address] Albumin 3.9 3.5 - 5.0 g/dL [facility] Comment:Testing performed by : [address] [address] Alk phos 95 40 - 130 Units/L [facility] Comment:Testing performed by : [address] [address] ALT 24 7 - 45 Units/L [facility] Comment: HEMOLYZED: Hemolysis interferes with the above test. Testing performed by: [address] [address] AST 26 10 - 45 Units/L [facility] Comment: HEMOLYZED: Hemolysis interferes with the above test. Testing performed by: [address] [address] Blood 07/12/2024 11:5 3 AM SENIOR HOUSEKEEPER 07/12/2024 11:58 AM SENIOR HOUSEKEEPER Donna CUEVA LAB BLOOD ORDERABLES Final Re sult NILSA [address] [facility] Department [place] [address] * ECG 12 lead (07/12/2024 11:48 AM SENIOR HOUSEKEEPER) Ventricular Rate EKG/Min 77 BPM [facility] Atrial Rate 77 BPM [facility] MN-Interval (MSEC) 154 ms [facility] QRS-Interval (MSEC) 66 ms [facility] QT-Interval (MSEC) 412 ms [facility] QTc 466 ms [facility] P Tyler 72 degrees [facility] R Tyler 6 degrees [facility] T Tyler 62 degrees [facility] Diagnosis Normal sinus rhythm Normal ECG When compared with ECG of 21-APR-2024 10:35, No significant change was found Confirmed by DIAMOND GUTIERREZ M.D. ([id number]) on 07/13/2024 9:26:23 PM [facility] 07/12/2024 11:4 8 AM SENIOR HOUSEKEEPER 07/13/2024 9:26 PM SENIOR HOUSEKEEPER Donna CUEVA ECG ORDERABLES Final Result Performing Organization Address [facility]/ZIP Co de Phone Number [facility] * CT Cervical Spine WO Contrast (07/12/2024 10:38 AM SENIOR HOUSEKEEPER) Anatomical Region Laterality Modality Spine N/A Computed Tomogra phy 07/12/2024 11:0 8 AM SENIOR HOUSEKEEPER Narrative 07/12/2024 11:13 AM SENIOR HOUSEKEEPER EXAM DESCRIPTION: CT CERVICAL SPINE WO CONTRAST [...] Wally Hernandez M.D. RB: AMADA Report ID: [id number] Reading Location: [id number] Procedure Note Wally Hernandez MD - 07/12/2024 [...] Wally Hernandez M.D. RB: AMADA Report ID: [id number] Reading Location: [id number] Donna CUEVA IMG CT PROCEDURES Final Resul t * CT Facial Bones WO Contrast (07/12/2024 10:38 AM SENIOR HOUSEKEEPER) Anatomical Region Laterality Modality Head and Neck N/A Computed Tomogra phy 07/12/2024 11:0 3 AM SENIOR HOUSEKEEPER Narrative 07/12/2024 11:08 AM SENIOR HOUSEKEEPER EXAM DESCRIPTION: CT FACIAL BONES WO CONTRAST [...] Wally Hernandez M.D. RB: RB Report ID: [id number] Reading Location: [id number] Procedure Note Wally Hernandez MD - 07/12/2024 [...] Wally Hernandez M.D. RB: RB Report ID: [id number] Reading Location: [id number] Donna CUEVA [facility] PROCEDURES Final Resul t * CT Head WO Contrast (07/12/2024 10:38 AM SENIOR HOUSEKEEPER) Anatomical Region Laterality Modality Head and Neck N/A Computed Tomogra phy 07/12/2024 10:5 9 AM SENIOR HOUSEKEEPER Narrative 07/12/2024 11:03 AM SENIOR HOUSEKEEPER EXAM DESCRIPTION: CT HEAD WO CONTRAST REASON [...] Wally Hernandez M.D. RB: AMADA Report ID: [id number] Reading Location: [id number] Procedure Note Wally Hernandez MD - 07/12/2024 [...] Wally Hernandez M.D. RB: AMADA Report ID: [id number] Reading Location: [place] [address] PROCEDURES Final Resul t * XR Shoulder Right 2 or More Views (07/12/2024 10:08 AM SENIOR HOUSEKEEPER) Anatomical Region Laterality Modality Upper Extremities, Shoulder Right Comp uted Radiography 07/12/2024 10:1 4 AM SENIOR HOUSEKEEPER Narrative 07/12/2024 10:15 AM SENIOR HOUSEKEEPER EXAM DESCRIPTION: XR SHOULDER RIGHT 2 OR [...] Wally Hernandez M.D. RB: AMADA Report ID: [id number] Reading Location: [id number] Procedure Note Wally Hernandez MD - 07/12/2024 [...] Wally Hernandez M.D. RB: AMADA Report ID: [id number] Reading Location: [id number] Julio Landeros DO IMG XR PROCEDURES Final Result * XR Shoulder Left 2 or More Views (07/12/2024 10:08 AM SENIOR HOUSEKEEPER) Anatomical Region Laterality Modality Upper Extremities, Shoulder Left Comp uted Radiography 07/12/2024 10:1 3 AM SENIOR HOUSEKEEPER Narrative 07/12/2024 10:14 AM SENIOR HOUSEKEEPER EXAM DESCRIPTION: XR SHOULDER LEFT 2 OR [...] Wally Hernandez M.D. RB: AMADA Report ID: [id number] Reading Location: [id number] Procedure Note Wally Hernandez MD - 07/12/2024 [...] Wally Hernandez M.D. RB: AMADA Report ID: [id number] Reading Location: [id number] us Julio Landeros DO IMG XR PROCEDURES Final Result * POCT glucose (07/12/2024 9:33 AM SENIOR HOUSEKEEPER) Glucose, POC 164 70 - 199 mg/dL Comment:Testing performed by : [facility], [address] [place] [address]., [id number] Glucose comment 1 Use This Result NILSA RODRIGES Comment:Testing performed by : [facility], [address] [place] [address]., [id number] Blood 07/12/2024 9:33 AM SENIOR HOUSEKEEPER 07/12/2024 9:33 AM SENIOR HOUSEKEEPER us Notinfile Unknown LAB POCT ORDERABLES - DEVICE F inal Result NILSA RODRIGES [address] [facility] Department [place] [address] * Lipid panel (05/16/2024 10:14 AM SENIOR HOUSEKEEPER) Cholesterol 160 30 - 199 mg/dL Comment: [...] NILSA BJWCH Blood 05/16/2024 10:1 4 AM SENIOR HOUSEKEEPER 05/16/2024 10:50 AM SENIOR HOUSEKEEPER Narrative NILSA MUELLERCH - 05/16/2024 11:23 AM SENIOR HOUSEKEEPER These lab test should be done fasting. This means do not eat or drink for at least 12 hours prior to getting your blood drawn. us Smith Gibbs MD LAB BLOOD ORDERABLES Final R esult [facility] [id number] [facility]. [place] [address] * Colonoscopy (03/01/2024 8:49 AM CDT) Anatomical Region Laterality Modality Other Narrative Procedure Note Jaya Grier MD - 03/01/2024 8:49 AM CDT [facility] GI ENDOSCOPY Patient Name: Sixto Chakraborty Procedure Date: 03/01/2024 8:49 AM Date of : 1950 Admit Type: Outpatient Age: 73 Gender: Female Attending MD: Jaya Grier M.D. Room: [facility] ENDOSCOPY ROOM 06 Note Status: [...] The scope was passed under direct vision.The [id number] colonoscope was introduced through theanus and advanced [...] On: 03/01/2024 8:49 AM Recognized by the [employer] for promoting quality [...] taking vitamin-D. History of end-stage renal disease. 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 TW: FAIZAN Report ID: [id number] Reading Location: [id number] Procedure Note Rafaela Paulino MD - 01/22/2024 EXAM DESCRIPTION: DEXA AXIAL SKELETON BONE DENSITY 1 OR MORE SITES REASON FOR STUDY: 73 y/o year old F with given history of: Post menopausal status. History of taking vitamin-D. History of end-stagerenal disease. Residential Care Officer/Model: [employer] A (S/N [id number]) CLINICAL INFORMATION: Current height: 61 inches Maximum [...] Rafaela Paulino M.D. TW: TW Report ID: [id number] Reading Location: [place] [address] us Cherelle Corcoran MD IMG DXA PROCEDURE [...] age 40, based on guidelines of the [employer] (ACR Practice Parameter for the Performance of Screening and Diagnostic Mammography) and [employer]. For women [...] Hep B core IgM Nonreactive Nonreactive [facility] Comment: Interpretive Data If HepB Core [...] last revised on 2019. HepBsAg Nonreactive Nonreactive [facility] Blood 10/15/2023 6:50 AM CDT 10/15/2023 7:07 AM CDT Jimbo Strauss MD LAB MICROBIOLOGY - GENERAL FREDDY HALEY Final Result [facility] [id number] [place] [address] * (ABNORMAL) Albumin Creatinine Ratio, Urine (10/10/2022 11:39 AM CDT) Albumin Ur 3,240.2 mg/L NILSA Comment: Interpretive Data No reference range established. Current interpretive data was last revised 2018. Testing performed by: [facility], [address] [place] [address]., [id number] Creatinine Ur 74.8 mg/dL NILSA RODRIGES Comment: Interpretive Data No reference range established. Current interpretive data was last revised 2018. Testing performed by: [facility], [address] [place] [address]., [id number] Albumin Creatinine Ratio, Ur 4,332(H) 1 - 29 mg/g NILSA RODRIEGS Comment:Testing performed by : [facility], [address] [place] [address]., [id number] Urine 10/10/2022 11:3 9 AM CDT 10/10/2022 1:45 PM CDT us Markie Ryan MD LAB URINE ORDERABLES Final Re sult NILSA RODRIGES [address] [facility] Department [place] [address] from Last 3 Months or Most Recently Relevant to Health Maintenance
--- OUTSIDE RECORDS SUMMARY | 2024-09-07 13:50 | XMS_ITS | Referral Summary ---
Author Organization [facility] Address [address] [place] [address] Care Team Providers Care Security Assurance Specialist Name Role Phone Cherelle Corcoran MD Primary Care Pro vider Mark Queen MD Unavailable [phone] Rudolph Welch MD Unavailable Markie Ryan MD Unavailable Jimbo Strauss MD Unavailable [phone] Jaya Grier MD Unavailable Edgardo Kauffman MD Unavailable Encounters Date Type Department Care Team Description 09/01/19 25 2:15 PM CDT Office Visit [facility] Cardiology [address] [place] [address] [place] [phone] Santo Vail MD Dyspnea, unspecified type (Primary Dx) 08/23/19 25 8:20 AM FOREST BIOMETRICS PROFESSOR Office Visit [facility] Endocrinology Metabolism and Lipid [facility] Medical Office Building [address], [address] [place] [address] Smith Gibbs MD Type 2 diabetes mellitus with diabetic nephropathy, with long-term current use of insulin (HCC) (Primary Dx); Type 2 diabetes mellitus with diabetic neuropathy, with long-term current use of insulin (HCC); Mixed hyperlipidemia; ESRD on hemodialysis (HCC); Primary hypertension 08/18/19 25 8:15 AM FOREST BIOMETRICS PROFESSOR Telemedicine [facility] Behavioral Health [address] [facility] [address] [place] [phone] Adryan Swenson MD Schizoaffective disorder, bipolar type (HCC) (Primary Dx) 08/17/19 25 Telephone [facility] Primary Care at [address] [place] [phone] Cherelle Corcoran MD Medical Question/Miscellaneous 08/02/19 25 JOY ED Outreach [facility] Care Organization [address] [place] [phone] Felicia Garcia MA 08/02/19 25 Nurse Triage [facility] Primary Care at [address] [place] [phone] Cherelle Corcoran MD 07/31/19 25 9:25 PM FOREST BIOMETRICS PROFESSOR - 07/31/19 10:27 PM FOREST BIOMETRICS PROFESSOR Emergency [facility] Emergency Department [address] [place] [address] Discharge Disposition: Left without being seen 07/27/[address] [facility] Endocrinology Metabolism and Lipid [address] [facility] 13th [place] [address] [place] [phone] Joe Ballard MD 07/21/19 25 Telephone [facility] at [facility] [address] [facility] [address] [place] [address] Varsha Oneill, RN 07/18/19 25 Orders Only [facility] Gastroenterology at [place] [address] [facility] [address] [place] [phone] Jaya Grier MD Ulcer of esophagus without bleeding (Primary Dx) 07/18/19 25 2:45 PM FOREST BIOMETRICS PROFESSOR Office Visit [facility] Primary Care at [address] [place] [phone] Cherelle Corcoran MD Fall, subsequent encounter (Primary Dx); Neck pain; Pressure injury of buttock, stage 1, unspecified laterality 07/15/19 25 2:30 PM FOREST BIOMETRICS PROFESSOR - 07/15/19 25 11:59 PM FOREST BIOMETRICS PROFESSOR Hospital Encounter [facility] Dialysis Access Center at [place] [id number] [address] ESRD (end stage renal diseas e) on dialysis (HCC) (Primary Dx) Discharge Disposition: Discharge to home or self care 07/15/19 25 10:00 AM FOREST BIOMETRICS PROFESSOR - 07/15/19 11:00 AM FOREST BIOMETRICS PROFESSOR Surgery [facility] Cardiac Movement Education Specialist [address] [place] [address] Edgardo Kauffman MD PERMACATH EXCHANGE [08534 (CPT )] 07/15/19 9:13 AM FOREST BIOMETRICS PROFESSOR - 07/15/19 1:20 PM FOREST BIOMETRICS PROFESSOR Hospital Encounter [facility] Cardiac Movement Education Specialist [address] [place] [address] Edgardo Kauffman MD ESRD (end stage renal disease) on dialysis (HCC) Discharge Disposition: Discharge to home or self care 07/14/19 12:35 PM FOREST BIOMETRICS PROFESSOR - 07/14/19 11:59 PM FOREST BIOMETRICS PROFESSOR Hospital Encounter [facility] Diagnostic Imaging [address] [place] [address] Discharge Disposition: Discharge to home or self care 07/14/19 12:11 PM FOREST BIOMETRICS PROFESSOR - 07/14/19 11:59 PM FOREST BIOMETRICS PROFESSOR Hospital Encounter [facility] Dialysis Access Center at [address] [address] ESRD (end stage renal diseas e) on dialysis (HCC) (Primary Dx); Type 2 diabetes mellitus with diabetic neuropathy, with long-term current use of insulin (HCC); Hypertension associated with diabetes (HCC); ESRD on hemodialysis (HCC); Hyperlipidemia associated with type 2 diabetes mellitus (HCC) Discharge Disposition: Discharge to home or self care 07/13/19 Nurse Triage [facility] Primary Care at [address] [place] [phone] Cherelle Corcoran MD 07/13/19 JOY ED Outreach [facility] Care Organization [address] [place] [address] Ale Goldstein MA 07/13/19 11:03 AM FOREST BIOMETRICS PROFESSOR Anesthesia Event [facility] GI Lab [address] [place] [address] Larry Valdivia MD 07/13/19 9:00 AM FOREST BIOMETRICS PROFESSOR - 07/13/19 9:30 AM FOREST BIOMETRICS PROFESSOR Surgery [facility] GI Lab [address] [place] [address] Jaya Grier MD ESOPHAGOGASTRODUODENOSCOPY BIOPSY 07/13/19 8:39 AM FOREST BIOMETRICS PROFESSOR - 07/13/19 12:26 PM FOREST BIOMETRICS PROFESSOR Hospital Encounter [facility] GI Lab [address] [place] [address] Jaya Grier MD Anemia, unspecified type; Gastritis without bleeding, unspecified chronicity, unspecified gastritis type; Gastritis, presence of bleeding unspecified, unspecified chronicity, unspecified gastritis type Discharge Disposition: Discharge to home or self care 07/12/19 11:16 AM FOREST BIOMETRICS PROFESSOR - 07/12/19 3:44 PM FOREST BIOMETRICS PROFESSOR Emergency [facility] Emergency Department [address] [place] [address] Fall, initial encounter (Primary Dx); Acute cystitis without hematuria Discharge Disposition: Discharge to home or self care 07/12/19 Telephone [facility] Primary Care at [address] [phone] Cherelle Corcoran MD Medical Question/Miscellaneous 07/11/19 Nurse Triage [facility] Primary Care at [address] [phone] Cherelle Corcoran MD 07/08/19 1:00 PM FOREST BIOMETRICS PROFESSOR Office Visit [facility] Primary Care at [address] [phone] Cherelle Corcoran MD Altered mental status, unspecified [...] disease without esophagitis; Frailty 07/07/19 1:30 PM FOREST BIOMETRICS PROFESSOR Office Visit [facility] Endocrinology Metabolism and Lipid [address] [place] [address] Medical Office Building [address], [address] [place] [address] Pippa Troy NP Type 2 diabetes mellitus with diabetic nephropathy, with long-term current use of insulin (HCC) (Primary Dx); Dyslipidemia; Primary hypertension 07/07/19 3:00 PM FOREST BIOMETRICS PROFESSOR Office Visit [facility] [address] [facility] Cardiology [address] [facility] [address] [place] [phone] Santo Vail MD Dyspnea, unspecified type (Primary Dx) 07/04/19 25 Telephone [facility] Primary Care at [address] [place] [address] Cherelle Corcoran MD JOY Questions 06/27/19 25 Nurse Triage [facility] Primary Care at [address] [place] [phone] Cherelle Corcoran MD 06/17/20 24 Orders Only [facility] Gastroenterology at [address] [place] [address] Jaya Grier MD Anemia, unspecified [...] (Constipation) 595 g Active FreeStyle Madhav 3 [place] [facility] Use Madhav 3 reader [...] long-term current use of insulin ([facility]) 1 each by other route daily 100 strip [address] (PROTONIX) 40 mg EC tabletIndications :Gastroesophageal reflux disease without esophagitis TAKE 1 TABLET(40 MG) BY MOUTH TWICE DAILY 180 tablet 025 Active blood-glucose sensor (FreeStyle Madhav 3 Plus Sensor) deviceIndications :Type 2 diabetes mellitus with diabetic nephropathy, with long-term current use of insulin ([facility]) Use to continually monitor glucose, change sensor [...] long-term current use of insulin ([facility]) Use Madhav 3 reader to [...] 07/07/2024 Assessment & Plan (07/14/2024 2:30 PM FOREST BIOMETRICS PROFESSOR): Continue Lipitor Assessment & Plan (07/14/2024 8:56 AM FOREST BIOMETRICS PROFESSOR): Ok to restart atorvastatin, but also given [...] 11/02/2023 Assessment & Plan (07/14/2024 2:39 PM FOREST BIOMETRICS PROFESSOR): Patient is needing a Perma catheter exchange [...] proceed. Assessment & Plan (07/14/2024 8:51 AM FOREST BIOMETRICS PROFESSOR): Following with nephrology Assessment & Plan (01/06/2024 [...] 10/30/2023 Assessment & Plan (05/06/2024 7:49 AM FOREST BIOMETRICS PROFESSOR): Reviewed hospital discharge summary Now resolved Upcoming [...] stable Assessment & Plan (07/24/2023 1:51 PM FOREST BIOMETRICS PROFESSOR): Chronic/stable Parkinsonism 08/14/2022 Assessment & Plan (07/14/2024 8:54 AM FOREST BIOMETRICS PROFESSOR): Following with neurology, recommend reaching out to them in regards to restarting benztropine. Consider waiting until after restarts other medications given daughter reports tremors controlled off benztropine currently Assessment & Plan (11/10/2023 4:43 PM CDT): Following with neurology On cogentin Assessment & Plan (07/24/2023 1:50 PM FOREST BIOMETRICS PROFESSOR): Following with neurology On cogentin twice a day Assessment & Plan (01/23/2023 9:20 AM CDT): Following with neurology On cogentin twice a day Assessment & Plan (10/10/2022 10:41 AM CDT): Following with neurology On cogentin Assessment & Plan (08/14/2022 10:46 AM FOREST BIOMETRICS PROFESSOR): Following with neurology, reviewed note On cogentin [...] - PT/OT recommends SNF. -Plan Agueda Rizzo [facility] on 11/26 ? Assessment & Plan (11/24/2021 2:07 PM CDT): Deconditioning 2/2 prolonged hospitalization. Daughter reports that prior to her illness, she was independent with a walker. - PT/OT recommends SNF. -Plan Agueda Rizzo [facility] on 11/25. Assessment & Plan [...] walker. - PT/OT recommends SNF. -Plan Agueda [facility], SNF on 11/25. Assessment & Plan [...] care Assessment & Plan (08/14/2022 10:47 AM FOREST BIOMETRICS PROFESSOR): Following with podiatry Assessment & Plan (04/02/2022 [...] - renal consulted regarding volume management, possible salvage determiner dialysis planning, expedite OP f/u. Serologies and urine studies ordered. ED neg, compliments neg, cryoglobulin pending, ANCA pending, HIV neg. Continued -Added metolazone 2.5mg/daily per renal 09/13- with improving swelling, Cr bump to 2.33 so held further -Transitioned to PO agents prior to DC (09/17) with ongoing clinical improvement. Goal weight 155lbs -Home with family at [place], er registrar consulted to review salt restrictions. -outpatient BMP, [...] - renal consulted regarding volume management, possible penitentiary dialysis planning, expedite OP f/u. Serologies and urine studies ordered. ED neg, compliments neg, cryoglobulin pending, ANCA pending, HIV neg. Continued -Added metolazone 2.5mg/daily per renal 09/13- with improving swelling, Cr bump to 2.33 so held further -Anticipate likely transition to PO agents prior to DC (?09/17) with ongoing clinical improvement. Goal weight 155lbs -Home with family at [place], er registrar consulted to review salt restrictions. Assessment & [...] - renal consulted regarding volume management, possible salvage determiner dialysis planning, expedite OP f/u. Serologies and urine studies ordered. -Added metolazone 2.5mg/daily per renal. -Anticipate likely transition to PO agents prior to DC with ongoing clinical improvement. Goal weight 145-150lbs -Home with family at [place], er registrar consulted to review salt restrictions. Assessment & [...] - renal consulted regarding volume management, possible penitentiary dialysis planning, expedite OP f/u. Serologies and [...] - renal consulted regarding volume management, possible penitentiary dialysis planning, expedite OP f/u. Serologies and [...] - renal consulted regarding volume management, possible salvage determiner dialysis planning, expedite OP f/u. Assessment & [...] net neg 1/2-1L/day. -consider renal consult regarding salvage determiner dialysis planning, expedite OP f/u. Assessment & [...] net neg 1/2-1L/day. -consider renal consult regarding salvage determiner dialysis planning. Assessment & Plan (09/06/2021 10:28 [...] 08/19/2021 Assessment & Plan (07/14/2024 8:53 AM FOREST BIOMETRICS PROFESSOR): Following with neurology Assessment & Plan (01/05/2024 10:40 PM CDT): Follows with neurology. -continue risperidone 2mg QHS -continue benztropine 2mg daily Assessment & Plan (11/10/2023 4:37 PM CDT): Following with neurology Assessment & Plan (07/24/2023 1:50 PM FOREST BIOMETRICS PROFESSOR): Following with neurology Assessment & Plan (01/23/2023 9:18 AM CDT): Following with neurology Assessment & Plan (10/10/2022 10:37 AM CDT): Following with neurology, ordered MRI, # given to son to schedule Assessment & Plan (06/09/2022 3:37 PM FOREST BIOMETRICS PROFESSOR): Needs to reschedule with neurology Looking into [facility], but declined for [facility] for schizoaffective disorder Assessment & Plan (01/14/2022 9:05 AM CDT): Following with psychiatry Assessment & Plan (09/03/2021 3:28 PM CDT): Chronic, stable. Alert, oriented to self, current place. Continue to monitor. Clock drawing test at next interval. Consideration for Aricept. Encounter for Medicare annual wellness exam 12/21 Assessment & Plan (11/10/2023 4:42 PM CDT): Reviewed [facility] & PHQ Screening PHQ-2 Total Score (If total score is 3 or more points, staff should administer the PHQ-9): 2 Hearing/vision screening reviewed, referrals placed as needed Fall risk reviewed Reviewed medications and supplements Specialists: endocrine, nephrology, cardiology, neurology, psychiatry evidence of cognitive impairment HCM: orders placed as needed Assessment & Plan (06/09/2022 3:37 PM FOREST BIOMETRICS PROFESSOR): Reviewed [facility] & PHQ Screening PHQ-2 Total Score [...] type Assessment & Plan (08/18/2024 8:44 AM FOREST BIOMETRICS PROFESSOR): Chronic, stable. Does not report any stephanie [...] discussed. Assessment & Plan (07/14/2024 8:54 AM FOREST BIOMETRICS PROFESSOR): Following with psychiatry, recommend reaching out to [...] psychiatry Assessment & Plan (07/24/2023 1:50 PM FOREST BIOMETRICS PROFESSOR): Following with psychiatry Assessment & Plan (01/23/2023 [...] discussed. Assessment & Plan (08/09/2021 5:42 AM FOREST BIOMETRICS PROFESSOR): Following with psychiatry Assessment & Plan (08/07/2021 3:28 PM FOREST BIOMETRICS PROFESSOR): Chronic condition, switch to Haldol and has had multiple different problems including acute kidney failure in infectious process. [facility] Confounded by delirium. Currently experiencing delirium will discontinue Haldol and return to Risperdal as previously taking. Risperdal was discontinued due to poorly-controlled diabetes. Monitor in 1 to 2 weeks. Assessment & Plan (07/03/2021 7:24 AM FOREST BIOMETRICS PROFESSOR): Following with psychiatry D/c risperidone, started on haldol Assessment & Plan (07/01/2021 9:16 PM FOREST BIOMETRICS PROFESSOR): Chronic, stable. 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 The patient previously lived on her own and was observed to be hoarding. See additional problems-dementia. Evaluate again in 1 month after starting Risperdal. Iron deficiency anemia 04/02/2020 Assessment & Plan (05/06/2024 7:51 AM FOREST BIOMETRICS PROFESSOR): Recommend discussing IV iron with nephrology Assessment & Plan (10/02/2020 4:35 PM CDT): Continue iron Assessment & Plan (05/28/2020 1:51 PM FOREST BIOMETRICS PROFESSOR): Iron levels recently normalized, but still anemic, repeat today Assessment & Plan (04/16/2020 11:45 AM CDT): Recent iron within normal limits, H/H improving, continue supplementation until normalized Gastroesophageal reflux disease without esophagi tis 04/02/2020 Assessment & Plan (07/14/2024 8:56 AM FOREST BIOMETRICS PROFESSOR): Restart protonix Upcoming EGD Assessment & Plan (01/05/2024 10:40 PM CDT): -continue famotidine Assessment & Plan (10/02/2020 4:35 PM CDT): Continue omeprazole Assessment & Plan (07/24/2020 2:06 PM FOREST BIOMETRICS PROFESSOR): Recurrent symptoms off omeprazole, restart Assessment & Plan (05/28/2020 1:51 PM FOREST BIOMETRICS PROFESSOR): Iron levels recently normalized, but still anemic, repeat today Assessment & Plan (04/02/2020 1:26 PM CDT): Start PPI History of amputation of toe 01/19/2020 Assessment & Plan (01/08/2021 3:50 PM CDT): Stable Assessment & Plan (10/02/2020 4:35 PM CDT): Stable Assessment & Plan (04/30/2020 1:00 PM FOREST BIOMETRICS PROFESSOR): Stable Assessment & Plan (02/14/2020 5:15 PM CDT): Healing well Following with surgeon/wound clinic Assessment & Plan (01/19/2020 5:17 PM CDT): Has home health Following with vascular Hypertension associated with diabetes 12/13/2019 Assessment & Plan (07/14/2024 2:32 PM FOREST BIOMETRICS PROFESSOR): Continue carvedilol, hydralazine Assessment & Plan (07/14/2024 8:51 AM FOREST BIOMETRICS PROFESSOR): BP controlled today off medication Daughter reports nephrology said could restart medication, is planning to restart coreg first and monitor blood pressure prior to restarting nifedipine/hydralazine Assessment & Plan (05/06/2024 7:48 AM FOREST BIOMETRICS PROFESSOR): BP controlled Continue nifedipine, hold prior to [...] x1 with HD. Most recent admission at [facility] with initiation of hydralazine and nifedipine [...] amlodipine Assessment & Plan (08/03/2023 4:02 PM FOREST BIOMETRICS PROFESSOR): BP uncontrolled Start 5mg amlodipine Assessment & Plan (07/24/2023 1:49 PM FOREST BIOMETRICS PROFESSOR): Blood pressure borderline today off medications Assessment & Plan (01/23/2023 9:18 AM CDT): Blood pressure borderline low today, asymptomatic Checking labs Advised to decrease amlodipine to 5mg and monitor blood pressure Assessment & Plan (10/10/2022 10:50 AM CDT): Continue coreg 6.25mg twice a day & 40mg valsartan Assessment & Plan (08/14/2022 10:43 AM FOREST BIOMETRICS PROFESSOR): Blood pressure at goal, continue coreg 6.25mg twice a day Assessment & Plan (06/09/2022 3:32 PM FOREST BIOMETRICS PROFESSOR): Blood pressure at goal, continue coreg 3.125mg [...] day Assessment & Plan (08/05/2021 10:35 AM FOREST BIOMETRICS PROFESSOR): Blood pressure at goal Increase amlodipine to 10mg & d/c hydralazine per cardiology Assessment & Plan (05/28/2021 4:59 PM FOREST BIOMETRICS PROFESSOR): Blood pressure above goal, but previously within [...] lisinopril Assessment & Plan (08/28/2020 12:12 PM FOREST BIOMETRICS PROFESSOR): Blood pressure at goal Continue lisinopril Assessment & Plan (07/24/2020 2:05 PM FOREST BIOMETRICS PROFESSOR): Blood pressure at goal Continue lisinopril Assessment & Plan (05/28/2020 1:50 PM FOREST BIOMETRICS PROFESSOR): BP borderline Continue 10mg lisinopril Continue to monitor Assessment & Plan (04/30/2020 12:32 PM FOREST BIOMETRICS PROFESSOR): BP borderline Continue 10mg lisinopril Continue to [...] 08/30/2019 Assessment & Plan (07/14/2024 2:31 PM FOREST BIOMETRICS PROFESSOR): Controlled. Continue as per Endocrine and PCP Assessment & Plan (07/14/2024 8:50 AM FOREST BIOMETRICS PROFESSOR): Following with endocrine, reviewed note Holding insulin [...] +SSI Assessment & Plan (07/24/2023 1:49 PM FOREST BIOMETRICS PROFESSOR): Lab Results Component Value Date HGBA1C 8.1 [...] trulicity Assessment & Plan (08/14/2022 10:42 AM FOREST BIOMETRICS PROFESSOR): Following with endocrine Continue lantus, 12 units humalog TIDAC & 1.5mg trulicity Assessment & Plan (06/09/2022 3:32 PM FOREST BIOMETRICS PROFESSOR): Following with endocrine Home blood sugar at [...] for strict med oversight by family at [place] reviewed with daughter this admit. Assessment & [...] for strict med oversight by family at [place] reviewed with daughter this admit. Assessment & [...] and nephropathy. Med oversight by family at [place]. Assessment & Plan (09/14/2021 12:22 PM CDT): [...] as she had discussed this with outpatient emissions engineer - repeat A1c - resume home statin, not currently on feliciano due to kidney function Assessment & Plan (08/05/2021 10:35 AM FOREST BIOMETRICS PROFESSOR): Continue 15 units lantus twice a day Assessment & Plan (07/03/2021 7:24 AM FOREST BIOMETRICS PROFESSOR): Fasting blood sugar significantly improved Risperidone changed Continue current meds Continue to monitor Assessment & Plan (06/18/2021 11:22 AM FOREST BIOMETRICS PROFESSOR): Increase lantus to 60 units nightly, if blood sugar still above goal after 1 week split into 33 units twice a day Follow up with blood sugar via portal in 2 weeks Continue jardiance 25mg Continue trulicity 4.5mg weekly Assessment & Plan (05/28/2021 4:58 PM FOREST BIOMETRICS PROFESSOR): Increase lantus to 55 units nightly Continue [...] weekly Assessment & Plan (08/28/2020 1:00 PM FOREST BIOMETRICS PROFESSOR): DM Care Plan: Meds: Lantus - continue [...] recheck Assessment & Plan (07/24/2020 2:05 PM FOREST BIOMETRICS PROFESSOR): Formulary change 2/2 insurance, switched to trulicity. Will increase to 1.5mg Assessment & Plan (05/28/2020 1:50 PM FOREST BIOMETRICS PROFESSOR): Check a1c Sixto isn't checking blood sugar regularly, but when she is she has several >200 so I lean towards increasing if a1c>7 Assessment & Plan (04/30/2020 12:31 PM FOREST BIOMETRICS PROFESSOR): Blood sugar improved on 40 units basaglar [...] the room. Recently treated at [facility] for PNA with prolonged course of antibiotics: [...] the room. Recently treated at [facility] for PNA with prolonged course of antibiotics: [...] the room. Recently treated at [facility] for PNA with prolonged course of antibiotics: [...] the room. Recently treated at [facility] for PNA with prolonged course of antibiotics: [...] the room. Recently treated at [facility] for PNA with prolonged course of antibiotics: [...] the room. Recently treated at [facility] for PNA with prolonged course of antibiotics: [...] the room. Recently treated at [facility] for PNA with prolonged course of antibiotics: [...] the room. Recently treated at [facility] for PNA with prolonged course of antibiotics: [...] the room. Recently treated at [facility] for PNA with prolonged course of antibiotics: [...] the room. Recently treated at [facility] for PNA with prolonged course of antibiotics: [...] 11/10/2023 Assessment & Plan (08/14/2022 10:44 AM FOREST BIOMETRICS PROFESSOR): Continue eliquis Assessment & Plan (06/09/2022 3:36 PM FOREST BIOMETRICS PROFESSOR): Continue eliquis Assessment & Plan (04/02/2022 6:05 [...] 10/10/2022 Assessment & Plan (08/07/2021 3:30 PM FOREST BIOMETRICS PROFESSOR): Subacute, persistent, hospitalized recently. She is alert [...] Impression: Patient recently had MRI performed at [facility] which revealed acute osteomyelitis to the distal [...] 08/28/2020 Assessment & Plan (05/28/2020 1:52 PM FOREST BIOMETRICS PROFESSOR): Encouraged to follow up with wound clinic for reassessment Assessment & Plan (04/30/2020 12:31 PM FOREST BIOMETRICS PROFESSOR): Following with wound clinic Assessment & Plan [...] acute osteomyelitis on recent MRI performed at [facility]. She is being treated with antibiotic [...] nightly Assessment & Plan (08/14/2022 10:42 AM FOREST BIOMETRICS PROFESSOR): Continue lyrica 150mg nightly Assessment & Plan (06/09/2022 3:32 PM FOREST BIOMETRICS PROFESSOR): Continue lyrica 150mg nightly Assessment & Plan [...] status. Assessment & Plan (05/28/2021 4:58 PM FOREST BIOMETRICS PROFESSOR): Continue lyrica 150mg nightly Assessment & Plan [...] gabapentin Assessment & Plan (08/28/2020 1:00 PM FOREST BIOMETRICS PROFESSOR): On gabapentin Assessment & Plan (07/24/2020 2:05 PM FOREST BIOMETRICS PROFESSOR): Continue gabapentin Assessment & Plan (04/02/2020 1:22 [...] materials from doctor or pharmacy Often 01/20/2024 [facility] Utilities Answer Date Recorded In the [...] time in the past [address] [facility], were you homeless or living [...] file Legal Sex Female 9:03 AM FOREST BIOMETRICS PROFESSOR Gender Identity Female 02/08/2020 6:39 PM CDT Sexual Orientation Not on file Last Filed Vital Signs Vital Sign Reading Time Taken Comments Blood Pressure 110/56 08/31/2024 2:38 PM CDT Pulse 74 08/31/2024 2:38 PM CDT Temperature 36.3 C (97.3 F) 07/31/2024 12:52 PM FOREST BIOMETRICS PROFESSOR Respiratory Rate 16 07/31/2024 12:52 PM FOREST BIOMETRICS PROFESSOR Oxygen Saturation 97% 08/31/2024 2:38 PM CDT Inhaled Oxygen Concentration - - Weight 60.1 kg (132 lb 6.4 oz) 08/31/2024 2:38 P M CDT Height 157.5 cm (5' 2 ) 08/22/2024 8:51 AM FOREST BIOMETRICS PROFESSOR Body Mass Index 24.22 08/22/2024 8:51 AM FOREST BIOMETRICS PROFESSOR Plan of Treatment Upcoming Encounters Date Type Department Care Team (Latest Contact Info) Description 09/13/2024 8:00 AM CDT Hospital Encounter [facility] GI Lab [address] [place] [address] Jaya Grier MD [address] [place] [address] [place] [id number] 09/13/2024 8:00 AM CDT - 09/13/2024 8:30 AM CDT Surgery [facility] GI Lab [address] [place] [address] Jaya Grier MD [address] [place] [address] ESOPHAGOGASTRODUODENOSCOPY Scheduled Procedures Name Priority Associated Diagnoses Date/Ti ms ESOPHAGOGASTRODUODENOSCOPY Ulcer of esophagus without bleeding 09/13/2024 8:00 AM CDT COLONOSCOPY Iron deficiency anemia due to chronic blood loss Medical Devices Implanted Type Area Cad Operator Device Identifier Shelf Expiration Date Model / Serial / Lot [facility] [employer] Duramax Vascpak Safesheath D-Pro 15.5fr 24cm Kit Catheter [id number] - [id number] Implanted:Qty: 1 on 10/15/2023 at [facility] [employer] 10/19/2025 [id number] / / [id number] [facility] [employer] Duraflow Embosafe 15.5fr 24cm Basic 2 Lumen Kit Catheter [id number] - [id number] Implanted:Qty: 1 on 07/15/2024 by Edgardo Kauffman MD at [facility] [employer] [facility] 08/19/2026 [id number] / / [id number] Procedures Procedure Name Priority Date/Time Associated Diagnosis Comments POCT HEMOGLOBIN A1C Routine 08/22/2024 8:55 AM FOREST BIOMETRICS PROFESSOR Type 2 diabetes mellitus with diabetic nephropathy, with long-term current use of insulin (HCC) RESPIRATORY PATHOGEN PANEL STAT 07/31 1:02 PM FOREST BIOMETRICS PROFESSOR DIABETIC EYE EXAM Routine 07/27/2024 12:37 PM FOREST BIOMETRICS PROFESSOR HM DIABETES EYE EXAM Routine 07/22/2024 XR CHEST 1 VIEW ED Urgent/IP Urgent 07/15/2024 1:11 PM FOREST BIOMETRICS PROFESSOR RPL DRE CVC W/O PUMP [id number] Routine 07/15 12:40 PM FOREST BIOMETRICS PROFESSOR ESRD (end stage renal disease) on dialysis ([facility]) XR CHEST 1 VIEW ED Urgent/IP Urgent 07/14/2024 1:16 PM FOREST BIOMETRICS PROFESSOR EGFR STAT 07/14/2024 12:34 PM FOREST BIOMETRICS PROFESSOR DIFFERENTIAL AUTO STAT 07/14/2024 12:34 PM FOREST BIOMETRICS PROFESSOR BASIC METABOLIC PANEL STAT 07/14/2024 12:34 PM FOREST BIOMETRICS PROFESSOR CBC WITH AUTO DIFFERENTIAL STAT 07/14 12:34 PM FOREST BIOMETRICS PROFESSOR SURGICAL PATHOLOGY Routine 07/13/2024 11:10 AM FOREST BIOMETRICS PROFESSOR Anemia, unspecified type Gastritis without bleeding, unspecified chronicity, unspecified gastritis type ESOPHAGOGASTRODUODENOSCOPY BIOPSY 07/13/2024 11:03 AM FOREST BIOMETRICS PROFESSOR Anemia, unspecified type Gastritis without bleeding, unspecified chronicity, unspecified gastritis type EGD 07/13/2024 10:59 AM FOREST BIOMETRICS PROFESSOR POC BLOOD GAS AND CHEMISTRIE S, VENOUS Routine 07/13/2024 10:12 AM FOREST BIOMETRICS PROFESSOR TROPONIN T HIGH-SENSITIVITY 2-HOUR Timed 07/12/2024 1:59 PM FOREST BIOMETRICS PROFESSOR URINALYSIS, MICROSCOPIC ONLY STAT 1:05 PM FOREST BIOMETRICS PROFESSOR DRUGS OF ABUSE SCREEN, URINE WITHOUT CONFIRMATION STAT 07/12/2024 1:05 PM FOREST BIOMETRICS PROFESSOR URINE CULTURE STAT 07/12/2024 1:05 PM FOREST BIOMETRICS PROFESSOR URINALYSIS AND REFLEX TO MICROSCOPIC AND CULTURE STAT 07/12/2024 1:05 PM FOREST BIOMETRICS PROFESSOR THYROID FUNCTION CASCADE STAT 025 11:53 AM FOREST BIOMETRICS PROFESSOR EGFR STAT 07/12/2024 11:53 AM FOREST BIOMETRICS PROFESSOR DIFFERENTIAL AUTO STAT 07/12/2024 11:53 AM FOREST BIOMETRICS PROFESSOR TROPONIN T HIGH-SENSITIVITY SERIES (BASELINE, 2HR, 4HR, 6HR) STAT 07/12/2024 11:53 AM FOREST BIOMETRICS PROFESSOR CBC WITH AUTO DIFFERENTIAL STAT 07/12 11:53 AM FOREST BIOMETRICS PROFESSOR COMPREHENSIVE METABOLIC PANEL STAT 11:53 AM FOREST BIOMETRICS PROFESSOR INFLUENZA A/B, RSV, AND COVID-19 PCR Routine 07/12/2024 11:53 AM FOREST BIOMETRICS PROFESSOR ECG 12-LEAD STAT 07/12/2024 11:[address] [address] FACIAL BONES WO CONTRAST ED 06/23 10:38 [address] FOR[address]OMETRICS [address]OR [address] CERVICAL SPINE WO CONTRAST ED 10:38 AM FOREST BIOMETRICS PROFESSOR CT HEAD WO CONTRAST ED 07/12/2024 10:38 AM FOREST BIOMETRICS PROFESSOR XR SHOULDER RIGHT 2 OR MORE VIEWS ED 07/12/2024 10:08 AM FOREST BIOMETRICS PROFESSOR XR SHOULDER LEFT 2 OR MORE VIEWS ED 07/12/2024 10:08 AM FOREST BIOMETRICS PROFESSOR POCT GLUCOSE DEVICE Routine 07/12/2024 9:33 AM FOREST BIOMETRICS PROFESSOR LIPID PANEL Routine 05/16/2024 10:14 AM FOREST BIOMETRICS PROFESSOR Mixed hyperlipidemia COLONOSCOPY 03/01/2024 8:49 AM CDT [...] * POCT hemoglobin A1c (08/22/2024 8:55 AM FOREST BIOMETRICS PROFESSOR) Hemoglobin A1C, POC 7.7 4.0 - 5.6 % Blood 08/22/2024 8:55 AM FOREST BIOMETRICS PROFESSOR us Smith Gibbs MD POINT OF CARE TEST ORDERABLE S Final Result * Respiratory pathogen panel Nasopharyngeal (07/31/2024 1:02 PM FOREST BIOMETRICS PROFESSOR) Influenza A RNA Not Detected Not Detected [...] Not Detected CERNER Comment: Interpretive Data The iZettle FilmArray Respiratory Panel (RP2.1) assay is a [...] assay has FDA clearance for testing of INDUSTRIAL SAFETY AND HEALTH MANAGER swabs. The performance characteristics of this assay have been determined by [facility]. Current interpretive data was last revised on 2021. Nasopharyngeal 07/31/2024 1: 02 PM FOREST BIOMETRICS PROFESSOR 07/31/2024 1:05 PM FOREST BIOMETRICS PROFESSOR Narrative NILSA - 07/31/2024 2:05 PM FOREST BIOMETRICS PROFESSOR Is the Patient experiencing symptoms consistent with COVID?->Yes Surveillance testing for transplant patient?->No Lucy Lucero MD LAB MICROBIOLOGY - [facility] ORDERABLES Final Result Performing Organization Address City/State/[facility] Co de Phone Number NILSA [address] Department [place] [address] * Diabetic Eye Exam (07/27/2024 12:37 PM FOREST BIOMETRICS PROFESSOR) Historical Provider HEALTH MAINTENANCE Final Result * HM DIABETES EYE EXAM (07/22/2024) Historical Provider HEALTH MAINTENANCE Final Result * XR Chest 1 View (07/15/2024 1:11 PM FOREST BIOMETRICS PROFESSOR) Anatomical Region Laterality Modality Body, Chest N/A Computed Radiogr aphy 07/15/2024 1:35 PM FOREST BIOMETRICS PROFESSOR Narrative 07/15/2024 1:36 PM FOREST BIOMETRICS PROFESSOR EXAM DESCRIPTION: XR CHEST 1 VIEW REASON [...] Yosef Lindo D.O. PS T: Report ID: [id number] Reading Location: [id number] Procedure Note Yosef Lindo, DO - 07/15/2024 [...] Yosef Lindo D.O. PS T: Report ID: [id number] Reading Location: [id number] Edgardo Kauffman MD IMG XR PROCEDURES Final Re sult * RPL DRE CVC W/O PUMP [id number] (07/15/2024 12:40 PM FOREST BIOMETRICS PROFESSOR) Anatomical Region Laterality Modality X-Ray Angiograph y Narrative 07/15/2024 12:45 PM FOREST BIOMETRICS PROFESSOR Please see OpNote for result. Edgardo Kauffman MD CV CARDIAC CATH PROCEDURES Final Result * XR Chest 1 View (07/14/2024 1:16 PM FOREST BIOMETRICS PROFESSOR) Anatomical Region Laterality Modality Body, Chest N/A Computed Radiogr aphy 07/14/2024 1:20 PM FOREST BIOMETRICS PROFESSOR Narrative 07/14/2024 1:22 PM FOREST BIOMETRICS PROFESSOR EXAM DESCRIPTION: XR CHEST 1 VIEW REASON [...] Salvador Villa M.D. KR T: Report ID: [id number] Reading Location: [id number] Procedure Note Salvador Villa MD - 07/14/2024 [...] Salvador Villa M.D. KR T: Report ID: [id number] Reading Location: [id number] Edgardo Kauffman MD IMG XR PROCEDURES Final Re sult * (ABNORMAL) eGFR (07/14/2024 12:34 PM FOREST BIOMETRICS PROFESSOR) eGFR 7(L) >=60 mL/min/1. 73 m2 Comment: [...] reviewed 2021. Blood 07/14/2024 12:3 4 PM FOREST BIOMETRICS PROFESSOR 07/14/2024 12:41 PM FOREST BIOMETRICS PROFESSOR Edgardo Kauffman MD LAB BLOOD ORDERABLES Final Result NILSA [address] [facility] [place] [address] * (ABNORMAL) Differential, auto (07/14/2024 12:34 PM FOREST BIOMETRICS PROFESSOR) Neutrophil abs 7.8(H) 1.5 - 6.5 K/cumm Imm gran abs 0.0 0.0 - 0.1 K/cumm [facility] Lymphocyte abs 1.5 0.8 - 3.3 K/cumm [facility] Monocyte abs 0.5 0.2 - 0.8 K/cumm [facility] Eosinophil abs 0.2 0.0 - 0.5 K/cumm [facility] Basophil abs 0.0 0.0 - 0.1 K/cumm [facility] Neutrophil pct 78.1 % [facility] Comment: Interpretive Data Percent cell count reference ranges are not reported, since discordance with absolute values may lead to misinterpretation of CBC data. Current Interpretive Data was last revised on 2017. Imm gran pct 0.4 % [facility] Comment: Interpretive Data Percent cell count reference ranges are not reported, since discordance with absolute values may lead to misinterpretation of CBC data. Current Interpretive Data was last revised on 2017. Lymphocyte pct 14.8 % [facility] Comment: Interpretive Data Percent cell count reference ranges are not reported, since discordance with absolute values may lead to misinterpretation of CBC data. Current Interpretive Data was last revised on 2017. Monocyte pct 4.7 % [facility] Comment: Interpretive Data Percent cell count reference ranges are not reported, since discordance with absolute values may lead to misinterpretation of CBC data. Current Interpretive Data was last revised on 2017. Eosinophil pct 1.6 % [facility] Comment: Interpretive Data Percent cell count reference ranges are not reported, since discordance with absolute values may lead to misinterpretation of CBC data. Current Interpretive Data was last revised on 2017. Basophil pct 0.4 % [facility] Comment: Interpretive Data Percent cell count reference ranges are not reported, since discordance with absolute values may lead to misinterpretation of CBC data. Current Interpretive Data was last revised on 2017. Blood 07/14/2024 12:3 4 PM FOREST BIOMETRICS PROFESSOR 07/14/2024 12:41 PM FOREST BIOMETRICS PROFESSOR Edgardo Kauffman MD LAB BLOOD ORDERABLES Final Result Performing Organization Address [facility] Co de Phone Number NILSA [address] [address] * (ABNORMAL) CBC with auto differential (07/14/2024 12:34 PM FOREST BIOMETRICS PROFESSOR) [facility] WBC 9.9 3.8 - 9.9 K/cumm Hgb 11.6(L) 11.9 - 15.5 g/dL [facility] Hct 35.3(L) 35.6 - 45.5 % [facility] Plt 241 150 - 400 K/cumm [facility] MPV 11.0 9.1 - 12.3 fL [facility] RBC 3.63(L) 3.90 - 5.20 M/cumm [facility] MCV 97.2(H) 81.3 - 96.4 fL [facility] MCH 32.0 27.1 - 33.3 pg [facility] MCHC 32.9 32.3 - 35.7 g/dL [facility] RDW CV 15.4(H) 11.1 - 14.9 % [facility] RDW SD 54.8(H) 35.7 - 48.1 fL [facility] NRBC abs 0.00 0.00 - 0.01 K/cumm [facility] Blood 07/14/2024 12:3 4 PM FOREST BIOMETRICS PROFESSOR 07/14/2024 12:41 PM FOREST BIOMETRICS PROFESSOR Edgardo Kauffamn MD LAB BLOOD ORDERABLES Final Result Performing Organization Address [facility] Co de Phone Number NILSA [address] [place] [address] * (ABNORMAL) Basic metabolic panel (07/14/2024 12:34 PM FOREST BIOMETRICS PROFESSOR) [facility] Sodium 138 135 - 145 mmol/L Potassium, pl 4.1 3.3 - 4.9 mmol/L [facility] Comment:Hemolyzed; Potassium value may be falsely elevated by as much as 1.0 mmol/L. Suggest redraw and reanalysis. Chloride 100 97 - 110 mmol/L [facility] CO2 25 22 - 32 mmol/L [facility] Anion gap 13 2 - 15 mmol/L [facility] BUN 51(H) 6 - 25 mg/dL [facility] Creatinine 6.22(H) 0.60 - 1.10 mg/dL [facility] Glucose 155 70 - 199 mg/dL [facility] Comment: Interpretive Data Fasting glucose >/= [...] 2022. Calcium 9.4 8.5 - 10.3 mg/dL [facility] Blood 07/14/2024 12:3 4 PM FOREST BIOMETRICS PROFESSOR 07/14/2024 12:41 PM FOREST BIOMETRICS PROFESSOR us Edgardo Kauffman MD LAB BLOOD ORDERABLES Final Result [address] [place] [address] * Surgical pathology (07/13/2024 11:10 AM FOREST BIOMETRICS PROFESSOR) Tissue (Duodenum, Biopsy) 07/13/2024 11:10 AM FOREST BIOMETRICS PROFESSOR Tissue (Gastric/Stomach biopsy) 07/13/2024 11:11 AM FOREST BIOMETRICS PROFESSOR Tissue (Gastric/Stomach biopsy) 07/13/2024 11:11 AM FOREST BIOMETRICS PROFESSOR Tissue (Esophageal biopsy) 07/13/2024 11:13 AM FOREST BIOMETRICS PROFESSOR Narrative PATHOLOGY [facility] - 07/14/2024 1:59 PM FOREST BIOMETRICS PROFESSOR [facility] Department of Pathology [address] [place] [id number] Note to Patients: This report may contain [...] : 1950 (Age: 73) Gender: F Address: [address] [place] [address] [facility] #: [id number] Service: Gastro Location: Patient Type: [facility] OUTPATIENT Taken: 07/13/2024 Received: 07/13/2024 [...] cm. Entirely submitted. Labeled D1. Jar 0. [facility]/07/13/2024 13:31 CAMILA Johnson, PA (ASCP) Microscopic slide review and interpretation for this case was performed at [facility], Department of Surgical Pathology, [address] [id number], [place] [address] CLIA # [id number] us Jaya Grier MD LAB PATHOLOGY ORDERABLES Final R esult PATHOLOGY [facility] * EGD (07/13/2024 10:59 AM FOREST BIOMETRICS PROFESSOR) Anatomical Region Laterality Modality Other Narrative Procedure Note Jaya Grier MD - 07/13/2024 10:59 AM CST [facility]ENCY [facility] GI ENDOSCOPY Patient Name: Sixto Chakraborty Procedure Date: 07/13/2024 10:59 AM Date of : 1950 Admit Type: Outpatient Age: 73 Gender: Female Attending MD: Jaya Grier M.D. Room: [facility] ENDOSCOPY ROOM 06 Note Status: Finalized Procedure: [...] On: 07/13/2024 10:59 AM Recognized by the [place] [employer] for promoting quality in endoscopy Jaya Grier MD ENDOSCOPY PROCEDURES Final Resul t * (ABNORMAL) POC Blood Gas and Chemistries, Venous - (07/13/2024 10:12 AM FOREST BIOMETRICS PROFESSOR) pH,chris POC 7.40 7.32 - 7.43 pCO2, chris POC 49 40 - 50 mmHg [facility] pO2,chris POC 36 mmHg [facility] Comment: Interpretive Data No reference range established. Current interpretive data was last revised 2020. HCO3, chris (Calc) POC 30 20 - 30 mmol/L [facility] Base excess, chris POC 4 mmol/L [facility] Comment: Interpretive Data No reference range established. Current interpretive data was last revised 2020. Hemoglobin, chris POC 13.9 11.9 - 15.5 g/dL [facility] Hematocrit, chris POC 41.0 35.6 - 45.5 % [facility] Sodium, chris POC 134(L) 135 - 145 mmol/L [facility] Potassium, chris POC 4.6 3.3 - 4.9 mmol/L [facility] Comment: Interpretive Data This method is not able to assess for hemolysis, which may falsely increase potassium concentrations. If further testing is needed to evaluate this result, consider in-laboratory plasma potassium. Current Interpretive Data was last revised on 2022. Glucose, chris POC 145 70 - 199 mg/dL [facility] Ionized Calcium, chris POC 4.70 4.50 - 5.10 mg/dL NILSA Blood 07/13/2024 10:1 2 AM FOREST BIOMETRICS PROFESSOR 07/13/2024 10:12 AM FOREST BIOMETRICS PROFESSOR Jaya Grier MD LAB POCT ORDERABLES - DEVICE Fin al Result Performing Organization Address [facility]/ZIP Co de Phone Number [facility] [address] [facility] [place] [address] * (ABNORMAL) Troponin T high-sensitivity 2-hour (07/12/2024 1:59 PM FOREST BIOMETRICS PROFESSOR) Trop T hs 63(H) <=14 ng/L Comment: Interpretive Data For further hscTnT resources including the diagnostic algorithm and an aid in interpretation, copy and paste this link: [email or web address].testcatalog.org/show/hsTrop Current Interpretive Data last revised 2020. Testing performed by: [address] [address] Trop T hs delta -5 ng/L NILSA Comment:Testing performed by : [address] [address] Trop T hs interp Equivocal NILSA Comment:Testing performed by : [address] [address] Blood 07/12/2024 1:59 PM FOREST BIOMETRICS PROFESSOR 07/12/2024 2:20 PM FOREST BIOMETRICS PROFESSOR Donna CUEVA LAB BLOOD ORDERABLES Final Re sult [facility] [address] [facility] [place] [address] * (ABNORMAL) Urinalysis reflex to microscopic and culture Urine (07/12/2024 1:05 PM FOREST BIOMETRICS PROFESSOR) Color, ur Mikayla Yellow Comment:Testing performed by : [address] [address] Clarity, ur Turbid(A) Clear NILSA Comment:Testing performed by : [address], [place]., [address] Specific gravity, ur 1.006 1.003 - 1.030 NILSA Comment:Testing performed by : [address] [address] pH, urine 6.0 NILSA Comment: Interpretive Data U rine pH is affected by diet, medications, systemic acid-base disturbances, and renal tubular function. pH may affect urinary stone formation. For example, urine pH below 6.0 may help reduce the tendency for calcium phosphate stones and pH greater than 6.0 may reduce the tendency for uric acid stone formation. Source: [facility] Current Interpretive Data was last revised on 2017 Testing performed by: [address] [address] Protein, ur ql 2+(A) Negative NILSA Comment:Testing performed by : [address] [address] Glucose, ur ql 1+(A) Negative NILSA Comment:Testing performed by : [address] [address] Ketones, ur Negative Negative NILSA Comment:Testing performed by : [address] [address] Bilirubin, ur Negative Negative NILSA Comment:Testing performed by : [address] [address] Blood, ur 2+(A) Negative NILSA Comment:Testing performed by : [address] [address] Urobilinogen, ur <2.0 <2.0 mg/dL NILSA Comment:Testing performed by : [address] [address] Nitrite, ur Negative Negative NILSA Comment:Testing performed by : [address] [address] Leukocyte esterase, ur 4+(A) Negative NILSA RODRIGES Comment:Testing performed by : [facility], [address] [place] [address]., [address] UA reflex comment Reflex to microscopic UA will be performed. NILSA RODRIGES Comment:Testing performed by : [facility], [address] [place] [address]., [address] Urine 07/12/2024 1:05 PM FOREST BIOMETRICS PROFESSOR 07/12/2024 1:09 PM FOREST BIOMETRICS PROFESSOR us Donna CUEVA LAB MICROBIOLOGY - GENERAL OR DERABLES Final Result NILSA RODRIGES [address] [facility] [place] [address] * Drugs of Abuse Screen, Urine without Confirmation (07/12/2024 1:05 PM FOREST BIOMETRICS PROFESSOR) Amphetamine, ur Not Detected CutOff 500ng/mL Comment: Interpretive Data - Amphetamines: Samples containing greater than 500 ng/mL d-methamphetamine or other cross-reacting amphetamine compounds are reported as positive. Amphetamine immunoassays are subject to significant false positive rates due to cross-reactivity of non-amphetamine drugs. Confirmatory testing required for definitive results. Current Interpretive Data was last reviewed 2023. Testing performed by: [address] [address] Barbiturates, ur Not Detected CutOff 200ng/mL NILSA RODRIGES Comment: Interpretive Data - Barbiturates: Samples containing greater than 200 ng/mL secobarbital or other cross-reacting barbiturate compounds are reported as positive. False positive and false negative results are possible. Confirmatory testing required for definitive results. Current Interpretive Data was last reviewed 2023. Testing performed by: [address] [address] Benzodiazepines, ur Not Detected CutOff 100ng/mL NILSA RODRIGES Comment: Interpretive Data - Benzodiazepines: Samples containing greater than 100 ng/mL nordiazepam or other cross-reacting compounds are reported as positive. False positive and false negative results are possible. Confirmatory testing required for definitive results. Current Interpretive Data was last reviewed 2023. Testing performed by: [address] [address] Cannabinoids, ur Not Detected CutOff 50 ng/mL [facility] Comment: Interpretive Data - Cannabinoids: Samples containing greater than 50 ng/mL delta-9 THC -COOH or other cross- reacting compounds are reported as positive. False positive and false negative results are possible. Confirmatory testing required for definitive results. Current Interpretive Data was last reviewed 2023. Testing performed by: [address] [address] Cocaine, ur Not Detected CutOff 150ng/mL [facility] Comment: Interpretive Data - Cocaine: Samples containing greater than 150 ng/mL benzoylecgonine or other cross- reacting compounds are reported as positive. False positive and false negative results are possible. Confirmatory testing required for definitive results. Current Interpretive Data was last reviewed 2023. Testing performed by: [address] [address] Fentanyl, Ur Not Detected Cutoff 1 ng/mL [facility] Comment: Interpretive Data - Fentanyl: Samples containing greater than 1 ng/mL fentanyl or other cross-reacting fentanyl compounds are reported as positive. False positive and false negative results are possible. Confirmatory testing required for definitive results. Current Interpretive Data was last reviewed 2023. Testing performed by: [address] [address] Methadone, ur Not Detected CutOff 300ng/mL [facility] Comment: Interpretive Data - Methadone: Samples containing greater than 300 ng/mL d,l-methadone or other cross-reacting compounds are reported as positive. False positive and false negative results are possible. Confirmatory testing required for definitive results. Current Interpretive Data was last reviewed 2023. Testing performed by: [address] [address] Opiates, ur Not Detected CutOff 300ng/mL [facility] Comment: Interpretive Data - Opiates: Samples containing greater than 300 ng/mL morphine or other cross-reacting compounds are reported as positive. False positive and false negative results are possible. Confirmatory testing required for definitive results. Current Interpretive Data was last reviewed 2023. Testing performed by: [address] [address] Oxycodone, ur Not Detected CutOff 100ng/mL NILSA Comment: Interpretive Data - Oxycodone: Samples containing greater than 100 ng/mL oxycodone or other cross-reacting compounds are reported as positive. False positive and false negative results are possible. Confirmatory testing required for definitive results. Current Interpretive Data was last reviewed 2023. Testing performed by: [address] [address] Phencyclidine, ur Not Detected CutOff 25 ng/mL NILSA Comment: Interpretive Data - Phencyclidine: Samples containing greater than 25 ng/mL phencyclidine or other cross-reacting compounds are reported as positive. False positive and false negative results are possible. Confirmatory testing required for definitive results. Current Interpretive Data was last reviewed 2023. Testing performed by: [address] [address] Urine Creatinine 74 mg/dL NILSA Comment: Interpretive Data Urine Creatinine: < 10 mg/dL is extremely dilute = or > 10 but < 20 mg/dL is dilute = or > 20 mg/dL is normal Current Interpretive Data was last revised on 2017. Testing performed by: [address] [address] Urine 07/12/2024 1:05 PM FOREST BIOMETRICS PROFESSOR 07/12/2024 1:09 PM FOREST BIOMETRICS PROFESSOR Narrative [facility] - 07/12/2024 1:31 PM FOREST BIOMETRICS PROFESSOR Drug of Abuse screening is performed by immunoassay for medical purposes only. This is not to be used for Pain Management purposes. us Donna CUEVA LAB URINE ORDERABLES Final Re sult NILSA [address] [facility] [place] [address] * (ABNORMAL) Urinalysis, microscopic only (07/12/2024 1:05 PM FOREST BIOMETRICS PROFESSOR) WBC, ur >50(A) 0 - 5 /HPF Comment:Testing performed by : [address] [address] RBC, ur 11-20(A) 0 - 2 /HPF NILSA Comment:Testing performed by : [address] [address] Bacteria, ur 4+(A) NILSA Comment:Testing performed by : [address] [address] Culture Reflex Comment Reflex to urine culture will be performed. NILSA Comment:Testing performed by : [address] [address] Urine 07/12/2024 1:05 PM FOREST BIOMETRICS PROFESSOR 07/12/2024 1:09 PM FOREST BIOMETRICS PROFESSOR us Donna CUEVA LAB URINE ORDERABLES Final Re sult NILSA RODRIGES [address] [facility] Department of Laboratories [place], [place] [id number] * (ABNORMAL) Urine culture Urine (07/12/2024 1:05 PM FOREST BIOMETRICS PROFESSOR) Report Final Report: Greater than or equal to 100,000 colonies/mL of Escherichia coli (.) Comment:Testing performed by : [facility], [address] [place]., [address] Organism ESCHERICHIA COLI NILSA Urine 07/12/2024 1:05 PM FOREST BIOMETRICS PROFESSOR 07/12/2024 3:03 PM FOREST BIOMETRICS PROFESSOR Narrative NILSA - 07/14/2024 2:20 PM FOREST BIOMETRICS PROFESSOR Urine culture reflexed based upon urinalysis results. Testing performed by [facility] Microbiology Laboratory ([phone]) Organism Antibiotic Method Susceptibility Escherichia coli Ampicillin [...] GENERAL OR DERABLES Final Result NILSA [address] [facility] [place] [address] * (ABNORMAL) Troponin T high-sensitivity series (baseline, 2hr, 4hr, 6hr) (07/12/2024 11:53 AM FOREST BIOMETRICS PROFESSOR) Pathologist [facility] Trop T hs 68(H) <=14 ng/L Comment: REDRAW: HEMOLYZED SPECIMEN Interpretive Data For further hscTnT resources including the diagnostic algorithm and an aid in interpretation, copy and paste this link: [email or web address] Current Interpretive Data last revised 2020. Testing performed by: [address] [address] Blood 07/12/2024 11:5 3 AM FOREST BIOMETRICS PROFESSOR 07/12/2024 11:58 AM FOREST BIOMETRICS PROFESSOR Donna CUEVA LAB BLOOD ORDERABLES Final Re sult NILSA [address] [facility] [place] [address] * Influenza A/B, RSV, and COVID-19 PCR Nasopharyngeal (07/12/2024 11:53 AM FOREST BIOMETRICS PROFESSOR) [facility] COVID-19 RNA Negative Negative Comment:Testing performed by : [address] [address] Influenza A RNA Negative Negative NILSA Comment:Testing performed by : [address] [address] Influenza B RNA Negative Negative NILSA Comment:Testing performed by : [address] [address] RSV RNA Negative Negative NILSA Comment: Interpretive data: Testing performed by [facility]. This test is performed using the Miregoert Xpress CoV-2/Flu/RSV plus assay. This is a [...] Data last revised 2023 Testing performed by: [facility], [address] [place] [address]., [address] Nasopharyngeal 07/12/2024 11 :53 AM FOREST BIOMETRICS PROFESSOR 07/12/2024 11:58 AM FOREST BIOMETRICS PROFESSOR Narrative NILSA - 07/12/2024 12:38 PM FOREST BIOMETRICS PROFESSOR Is the Patient experiencing symptoms consistent with COVID?->Unknown Donna CUEVA LAB MICROBIOLOGY - GENERAL OR DERABLES Final Result NILSA [address] [facility] [place] [address] * (ABNORMAL) eGFR (07/12/2024 11:53 AM FOREST BIOMETRICS PROFESSOR) eGFR 10(L) >=60 mL/min/1. 73 m2 Comment: [...] was last reviewed 2021. Testing performed by: [facility], [address] [place] [address]., [address] Blood 07/12/2024 11:5 3 AM FOREST BIOMETRICS PROFESSOR 07/12/2024 11:58 AM FOREST BIOMETRICS PROFESSOR us Donna CUEVA LAB BLOOD ORDERABLES Final Re sult NILSA [address] [facility] [place] [address] * (ABNORMAL) Differential, auto (07/12/2024 11:53 AM FOREST BIOMETRICS PROFESSOR) Neutrophil abs 9.2(H) 1.5 - 6.5 K/cumm Comment:Testing performed by : [address] [address] Imm gran abs 0.1 0.0 - 0.1 K/cumm NILSA Comment:Testing performed by : [address] [address] Lymphocyte abs 1.5 0.8 - 3.3 K/cumm NILSA Comment:Testing performed by : [address] [address] Monocyte abs 0.5 0.2 - 0.8 K/cumm NILSA Comment:Testing performed by : [address] [address] Eosinophil abs 0.1 0.0 - 0.5 K/cumm NILSA Comment:Testing performed by : [address] [address] Basophil abs 0.0 0.0 - 0.1 K/cumm [facility] Comment:Testing performed by : [address] [address] Neutrophil pct 81.0 % NILSA Comment: Interpretive Data Percent cell count reference ranges are not reported, since discordance with absolute values may lead to misinterpretation of CBC data. Current Interpretive Data was last revised on 2017. Testing performed by: [address] [address] Imm gran pct 0.4 % NILSA Comment: Interpretive Data Percent cell count reference ranges are not reported, since discordance with absolute values may lead to misinterpretation of CBC data. Current Interpretive Data was last revised on 2017. Testing performed by: [address] [address] Lymphocyte pct 13.4 % [facility] Comment: Interpretive Data Percent cell count reference ranges are not reported, since discordance with absolute values may lead to misinterpretation of CBC data. Current Interpretive Data was last revised on 2017. Testing performed by: [address] [address] Monocyte pct 4.2 % [facility] Comment: Interpretive Data Percent cell count reference ranges are not reported, since discordance with absolute values may lead to misinterpretation of CBC data. Current Interpretive Data was last revised on 2017. Testing performed by: [address] [address] Eosinophil pct 0.6 % [facility] Comment: Interpretive Data Percent cell count reference ranges are not reported, since discordance with absolute values may lead to misinterpretation of CBC data. Current Interpretive Data was last revised on 2017. Testing performed by: [address] [address] Basophil pct 0.4 % [facility] Comment: Interpretive Data Percent cell count reference ranges are not reported, since discordance with absolute values may lead to misinterpretation of CBC data. Current Interpretive Data was last revised on 2017. Testing performed by: [address] [address] Blood 07/12/2024 11:5 3 AM FOREST BIOMETRICS PROFESSOR 07/12/2024 11:58 AM FOREST BIOMETRICS PROFESSOR us Donna CUEVA LAB BLOOD ORDERABLES Final Re sult NILSA RODRIGES [address] [facility] [place] [address] * Thyroid Function [place] (07/12/2024 11:53 AM FOREST BIOMETRICS PROFESSOR) TSH 1.22 0.30 - 4.20 mcIUnit/mL Comment:Testing performed by : [address] [address] Blood 07/12/2024 11:5 3 AM FOREST BIOMETRICS PROFESSOR 07/12/2024 11:58 AM FOREST BIOMETRICS PROFESSOR us Donna CUEVA LAB BLOOD ORDERABLES Final Re sult NILSA [address] [facility] [place] [address] * (ABNORMAL) CBC with auto differential (07/12/2024 11:53 AM FOREST BIOMETRICS PROFESSOR) WBC 11.3(H) 3.8 - 9.9 K/cumm Comment:Testing performed by : [address] [address] Hgb 12.3 11.9 - 15.5 g/dL NILSA Comment:Testing performed by : [address] [address] Hct 37.2 35.6 - 45.5 % NILSA Comment:Testing performed by : [address] [address] Plt 230 150 - 400 K/cumm NILSA Comment:Testing performed by : [address] [address] MPV 10.7 9.1 - 12.3 fL NILSA Comment:Testing performed by : [address] [address] RBC 3.85(L) 3.90 - 5.20 M/cumm NILSA Comment:Testing performed by : [address] [address] MCV 96.6(H) 81.3 - 96.4 fL NILSA Comment:Testing performed by : [address] [address] MCH 31.9 27.1 - 33.3 pg NILSA RODRIGES Comment:Testing performed by : [address] [address] MCHC 33.1 32.3 - 35.7 g/dL NILSA RODRIGES Comment:Testing performed by : [address] [address] RDW CV 15.7(H) 11.1 - 14.9 % NILSA RODRIGES Comment:Testing performed by : [address] [address] RDW SD 55.5(H) 35.7 - 48.1 fL NILSA RODRIGES Comment:Testing performed by : [address] [address] NRBC abs 0.00 0.00 - 0.01 K/cumm NILSA RODRIGES Comment:Testing performed by : [address] [address] Blood 07/12/2024 11:5 3 AM FOREST BIOMETRICS PROFESSOR 07/12/2024 11:58 AM FOREST BIOMETRICS PROFESSOR us Donna CUEVA LAB BLOOD ORDERABLES Final Re sult NILSA [facility] [place] [address] * (ABNORMAL) Comprehensive metabolic panel (07/12/2024 11:53 AM FOREST BIOMETRICS PROFESSOR) Sodium 134(L) 135 - 145 mmol/L Comment:Testing performed by : [address] [address] Potassium, pl 4.6 3.3 - 4.9 mmol/L NILSA RODRIGES Comment: HEMOLYZED: Hemolysis interferes with the above test. Testing performed by: [address] [address] Chloride 93(L) 97 - 110 mmol/L NILSA Comment:Testing performed by : [address] [address] CO2 28 22 - 32 mmol/L NILSA RODRIGES Comment:Testing performed by : [address] [address] Anion gap 13 2 - 15 mmol/L NILSA RODRIGES Comment:Testing performed by : [address] [address] BUN 33(H) 6 - 25 mg/dL [facility] Comment:Testing performed by : [address] [address] Creatinine 4.60(H) 0.60 - 1.10 mg/dL [facility] Comment:Testing performed by : [address] [address] Glucose 177 70 - 199 mg/dL [facility] Comment: Interpretive Data Fasting glucose >/= [...] was last revised 2022. Testing performed by: [address] [address] Calcium 9.5 8.5 - 10.3 mg/dL [facility] Comment:Testing performed by : [address] [address] Bilirubin, total 0.4 0.1 - 1.2 mg/dL [facility] Comment:Testing performed by : [address] [address] Protein, pl 8.2 6.5 - 8.5 g/dL [facility] Comment:Testing performed by : [address] [address] Albumin 3.9 3.5 - 5.0 g/dL [facility] Comment:Testing performed by : [address] [address] Alk phos 95 40 - 130 Units/L [facility] Comment:Testing performed by : [address] [address] ALT 24 7 - 45 Units/L [facility] Comment: HEMOLYZED: Hemolysis interferes with the above test. Testing performed by: [address] [address] AST 26 10 - 45 Units/L CARLOS ENRIQUEELLEN Comment: HEMOLYZED: Hemolysis interferes with the above test. Testing performed by: [facility], [address] [place] [address], [place]., [address] Blood 07/12/2024 11:5 3 AM FOREST BIOMETRICS PROFESSOR 07/12/2024 11:58 AM FOREST BIOMETRICS PROFESSOR Donna CUEVA LAB BLOOD ORDERABLES Final Re sult NILSA [address] [facility] [place] [address] * ECG 12 lead (07/12/2024 11:48 AM FOREST BIOMETRICS PROFESSOR) Ventricular Rate EKG/Min 77 BPM [facility] Atrial Rate 77 BPM [facility] MT-Interval (MSEC) 154 ms [facility] QRS-Interval (MSEC) 66 ms [facility] QT-Interval (MSEC) 412 ms [facility] QTc 466 ms [facility] P [place] 72 degrees [facility] R [place] 6 degrees [facility] T [place] 62 degrees [facility] Diagnosis Normal sinus rhythm Normal ECG When compared with ECG of 21-APR-2024 10:35, No significant change was found Confirmed by DIAMOND GUTIERREZ M.D. ([id number]) on 07/13/2024 9:26:23 PM [facility] 07/12/2024 11:4 8 AM FOREST BIOMETRICS PROFESSOR 07/13/2024 9:26 PM FOREST BIOMETRICS PROFESSOR Donna CUEVA ECG ORDERABLES Final Result Performing Organization Address City/[facility]/ZIP Co de Phone Number [facility] * CT Cervical Spine WO Contrast (07/12/2024 10:38 AM FOREST BIOMETRICS PROFESSOR) Anatomical Region Laterality Modality Spine N/A Computed Tomogra phy 07/12/2024 11:0 8 AM FOREST BIOMETRICS PROFESSOR Narrative 07/12/2024 11:13 AM FOREST BIOMETRICS PROFESSOR EXAM DESCRIPTION: CT CERVICAL SPINE WO CONTRAST [...] Wally Hernandez M.D. RB: AMADA Report ID: [id number] Reading Location: [id number] Procedure Note Wally Hernandez MD - 07/12/2024 [...] Wally Hernandez M.D. RB: AMADA Report ID: [id number] Reading Location: [place] [address] PROCEDURES Final Resul t * CT Facial Bones WO Contrast (07/12/2024 10:38 AM FOREST BIOMETRICS PROFESSOR) Anatomical Region Laterality Modality Head and Neck N/A Computed Tomogra phy 07/12/2024 11:0 3 AM FOREST BIOMETRICS PROFESSOR Narrative 07/12/2024 11:08 AM FOREST BIOMETRICS PROFESSOR EXAM DESCRIPTION: CT FACIAL BONES WO CONTRAST [...] Wally Hernandez M.D. RB: AMADA Report ID: [id number] Reading Location: [place] [address] Procedure Note Wally Hernandez MD - 07/12/2024 [...] 11:08 AM - Electronically signed by Wally Hernanedz M.D. RB: AMADA Report ID: [id number] Reading Location: [place] [address] PROCEDURES Final Resul t * CT Head WO Contrast (07/12/2024 10:38 AM FOREST BIOMETRICS PROFESSOR) Anatomical Region Laterality Modality Head and Neck N/A Computed Tomogra phy 07/12/2024 10:5 9 AM FOREST BIOMETRICS PROFESSOR Narrative 07/12/2024 11:03 AM FOREST BIOMETRICS PROFESSOR EXAM DESCRIPTION: CT HEAD WO CONTRAST REASON [...] Wally Hernandez M.D. RB: AMADA Report ID: [id number] Reading Location: [id number] Procedure Note Wally Hernandez MD - 07/12/2024 [...] Wally Hernandez M.D. RB: AMADA Report ID: [id number] Reading Location: [id number] Donna CUEVA IMG CT PROCEDURES Final Resul t * XR Shoulder Right 2 or More Views (07/12/2024 10:08 AM FOREST BIOMETRICS PROFESSOR) Anatomical Region Laterality Modality Upper Extremities, Shoulder Right Comp uted Radiography 07/12/2024 10:1 4 AM FOREST BIOMETRICS PROFESSOR Narrative 07/12/2024 10:15 AM FOREST BIOMETRICS PROFESSOR EXAM DESCRIPTION: XR SHOULDER RIGHT 2 OR [...] Wally Hernandez M.D. RB: AMADA Report ID: [id number] Reading Location: [id number] Procedure Note Wally Hernandez MD - 07/12/2024 [...] Wally Hernandez M.D. RB: AMADA Report ID: [id number] Reading Location: [id number] us Julio Landeros DO IMG XR PROCEDURES Final Result * XR Shoulder Left 2 or More Views (07/12/2024 10:08 AM FOREST BIOMETRICS PROFESSOR) Anatomical Region Laterality Modality Upper Extremities, Shoulder Left Comp uted Radiography 07/12/2024 10:1 3 AM FOREST BIOMETRICS PROFESSOR Narrative 07/12/2024 10:14 AM FOREST BIOMETRICS PROFESSOR EXAM DESCRIPTION: XR SHOULDER LEFT 2 OR [...] Wally Hernandez M.D. RB: AMADA Report ID: [id number] Reading Location: [id number] Procedure Note Wally Hernandez MD - 07/12/2024 [...] Wally Hernandez M.D. RB: AMADA Report ID: [id number] Reading Location: [id number] us Julio Landeros DO IMG XR PROCEDURES Final Result * POCT glucose (07/12/2024 9:33 AM FOREST BIOMETRICS PROFESSOR) Glucose, POC 164 70 - 199 mg/dL Comment:Testing performed by : [address] [address] Glucose comment 1 Use This Result NILSA RODRIGES Comment:Testing performed by : [facility], [address] [place] [address]., [address] Blood 07/12/2024 9:33 AM FOREST BIOMETRICS PROFESSOR 07/12/2024 9:33 AM FOREST BIOMETRICS PROFESSOR Notinfile Unknown LAB POCT ORDERABLES - DEVICE F inal Result NILSA RODRIGES [facility] [place] [address] * Lipid panel (05/16/2024 10:14 AM FOREST BIOMETRICS PROFESSOR) Cholesterol 160 30 - 199 mg/dL Comment: [...] NILSA DIAS Blood 05/16/2024 10:1 4 AM FOREST BIOMETRICS PROFESSOR 05/16/2024 10:50 AM FOREST BIOMETRICS PROFESSOR Narrative NILSA LARISSA - 05/16/2024 11:23 AM FOREST BIOMETRICS PROFESSOR These lab test should be done fasting. This means do not eat or drink for at least 12 hours prior to getting your blood drawn. us Smith Gibbs MD LAB BLOOD ORDERABLES Final R esult NILSA [facility] [address] [facility]. Department of Laboratories [place], [place] [id number] * Colonoscopy (03/01/2024 8:49 AM CDT) Anatomical Region Laterality Modality Other Narrative Procedure Note Jaya Grier MD - 03/01/2024 8:49 AM CDT [facility] GI ENDOSCOPY Patient Name: Sixto Chakraborty Procedure Date: 03/01/2024 8:49 AM Date of : 1950 Admit Type: Outpatient Age: 73 Gender: Female Attending MD: Jaya Grier M.D. Room: [facility] ENDOSCOPY ROOM 06 Note Status: Finalized Procedure: [...] The scope was passed under direct vision.The [id number] colonoscope was introduced through theanus and advanced [...] On: 03/01/2024 8:49 AM Recognized by the [place] [employer] for promoting quality [...] taking vitamin-D. History of end-stage renal disease. Cad Operator/Model: ZipZap A (S/N [id number]) CLINICAL INFORMATION: Current height: 61 inches Maximum [...] Rafaela Paulino M.D. TW: TW Report ID: [id number] Reading Location: [id number] Procedure Note Rafaela Paulino MD - 01/22/2024 EXAM DESCRIPTION: DEXA AXIAL SKELETON BONE DENSITY 1 OR MORE SITES REASON FOR STUDY: 73 y/o year old F with given history of: Post menopausal status. History of taking vitamin-D. History of end-stagerenal disease. Cad Operator/Model: ZipZap A (S/N [id number]) CLINICAL INFORMATION: Current height: 61 inches Maximum [...] Rafaela Paulino M.D. TW: TW Report ID: [id number] Reading Location: [id number] us Cherelle Corcoran MD IMG DXA PROCEDURE [...] age 40, based on guidelines of the [place] (ACR Practice Parameter for the Performance of Screening and Diagnostic Mammography) and [place] [employer]. For women [...] 19. Hep B core IgM Nonreactive Nonreactive [facility] Comment: Interpretive Data If HepB Core IgM Ab is reported as Equivocal, a new sample should be drawn in two weeks for testing. Current interpretive data was last revised on 19. Hep C Ab Nonreactive Nonreactive [facility] Comment: Interpretive Data Nonreactive: Antibodies to [...] last revised on 2019. HepBsAg Nonreactive Nonreactive [facility] Blood 10/15/2023 6:50 AM CDT 10/15/2023 7:07 AM CDT Jimbo Strauss MD LAB MICROBIOLOGY - GENERAL FREDDY HALEY Final Result [facility] [address] Department [place] [address] * (ABNORMAL) Albumin Creatinine Ratio, Urine (10/10/2022 11:39 AM CDT) Albumin Ur 3,240.2 mg/L NILSA Comment: Interpretive Data No reference range established. Current interpretive data was last revised 2018. Testing performed by: [address] [address] Creatinine Ur 74.8 mg/dL NILSA Comment: Interpretive Data No reference range established. Current interpretive data was last revised 2018. Testing performed by: [address] [address] Albumin Creatinine Ratio, Ur 4,332(H) 1 - 29 mg/g NILSA Comment:Testing performed by : [address] [address] Urine 10/10/2022 11:3 9 AM CDT 10/10/2022 1:45 PM CDT us Markie Ryan MD LAB URINE ORDERABLES Final Re sult Performing Organization Address City/State/[facility] Co de Phone Number NILSA [address] [facility] [place] [address] from Last 3 Months or Most Recently Relevant to Health Maintenance Insurance MEDICARE MEDICARE IDPA MEDICARE IDPA MEDICARE [facility] Advance Directives For more information, please contact: [phone] Documents on File Type Date Recorded Patient Shuttle Car Operator Expl anation ADVANCE DIRECTIVE 07/15/2024 7:58 AM Power of Accelerator Systems Director-Medical ADVANCE DIRECTIVE 02/02/2024 12:34 PM Erik r of Accelerator Systems Director-Medical * Full Code (Latest Code Status on [...] Gayle Daughter Health Care Agent Care Teams Security Assurance Specialist Relationship Specialty Start Date End Date Cherelle Corcoran MD PCP - General Family Medicine 08/30/19 Mark Queen MD Consulting Physician Infectious Diseases 01/10/20 Rudolph Welch MD [address] [place] [address] Consulting Physician Infectious Diseases 12/05/22 Markie Ryan MD [address] [place] [address] Consulting Physician Nephrology 12/05/22 [place] [id number] [address] Consulting Physician Nephrology 10/22/23 Jaya Grier MD [address] [place] [address] Consulting Physician Gastroenterology 02/01/24 Edgardo Kauffman MD [address] [place] [address] Surgeon Vascular Surgery 07/15/24
--- OUTSIDE RECORDS SUMMARY | 2024-09-07 13:50 | XMS_ITS | Clinical Summary ---
Author Organization [facility] Address [address] [place] [address] Care Team Providers Care Library Science Professor Name Role Phone Cherelle Corcoran MD Primary Care Pro vider QueenMark Perez MD Unavailable [phone] Rudolph Welch MD Unavailable Markie Ryan MD Unavailable Jimbo Strauss MD Unavailable [phone] Jaya Grier MD Unavailable Edgardo Kauffman MD Unavailable Allergies No known active allergies Medications lidocaine (ASPERCREME) 4 % adhesive patch,medicated Place 1 patch on the skin daily as needed to lower back Active polyethylene glycol (MIRALAX) 17 gram/dose bulk powder Take 17 g by mouth daily as needed (Constipation) 595 g 024 Active FreeStyle Madhav 3 [place] [facility] Use Madhav 3 reader to scan Madhav [...] nephropathy, with long-term current use of insulin ([facility]) Use to continually monitor glucose, [...] neuropathy, with long-term current use of insulin ([facility]) Use Madhav 3 reader to [...] 07/07/2024 Assessment & Plan (07/14/2024 2:30 PM BANANA GRADER): Continue Lipitor Assessment & Plan (07/14/2024 8:56 AM BANANA GRADER): Ok to restart atorvastatin, but also given [...] 11/02/2023 Assessment & Plan (07/14/2024 2:39 PM BANANA GRADER): Patient is needing a Perma catheter exchange [...] proceed. Assessment & Plan (07/14/2024 8:51 AM BANANA GRADER): Following with nephrology Assessment & Plan (01/06/2024 [...] 10/30/2023 Assessment & Plan (05/06/2024 7:49 AM BANANA GRADER): Reviewed hospital discharge summary Now resolved Upcoming [...] stable Assessment & Plan (07/24/2023 1:51 PM BANANA GRADER): Chronic/stable Parkinsonism 08/14/2022 Assessment & Plan (07/14/2024 8:54 AM BANANA GRADER): Following with neurology, recommend reaching out to them in regards to restarting benztropine. Consider waiting until after restarts other medications given daughter reports tremors controlled off benztropine currently Assessment & Plan (11/10/2023 4:43 PM CDT): Following with neurology On cogentin Assessment & Plan (07/24/2023 1:50 PM BANANA GRADER): Following with neurology On cogentin twice a day Assessment & Plan (01/23/2023 9:20 AM CDT): Following with neurology On cogentin twice a day Assessment & Plan (10/10/2022 10:41 AM CDT): Following with neurology On cogentin Assessment & Plan (08/14/2022 10:46 AM BANANA GRADER): Following with neurology, reviewed note On cogentin [...] walker. - PT/OT recommends SNF. -Plan [facility], SNF on 11/26 ? Assessment & Plan (11/24/2021 2:07 PM CDT): Deconditioning 2/2 prolonged hospitalization. Daughter reports that prior to her illness, she was independent with a walker. - PT/OT recommends SNF. -Plan [facility], SNF on 11/25. Assessment & Plan (11/23/2021 12:24 PM CDT): Deconditioning 2/2 prolonged hospitalization. Daughter reports that prior to her illness, she was independent with a walker. - PT/OT recommends SNF. -Plan [facility], SNF on 11/25. Assessment & Plan (11/22/2021 1:34 PM CDT): Deconditioning 2/2 prolonged hospitalization. Daughter reports that prior to her illness, she was independent with a walker. - PT/OT recommends SNF. -Plan [facility], [facility] on 11/25. Assessment & Plan [...] care Assessment & Plan (08/14/2022 10:47 AM BANANA GRADER): Following with podiatry Assessment & Plan (04/02/2022 [...] - renal consulted regarding volume management, possible tank terminal gauger dialysis planning, expedite OP f/u. Serologies and urine studies ordered. ED neg, compliments neg, cryoglobulin pending, ANCA pending, HIV neg. Continued -Added metolazone 2.5mg/daily per renal 09/13- with improving swelling, Cr bump to 2.33 so held further -Transitioned to PO agents prior to DC (09/17) with ongoing clinical improvement. Goal weight 155lbs -[place], acrobatic rigger consulted to review salt restrictions. -outpatient BMP, [...] weight 155lbs -[place], acrobatic rigger consulted to review salt restrictions. Assessment & [...] weight 145-150lbs -Home with family at [place], acrobatic rigger consulted to review salt restrictions. Assessment & [...] - renal consulted regarding volume management, possible tank terminal gauger dialysis planning, expedite OP f/u. Assessment & [...] net neg 1/2-1L/day. -consider renal consult regarding tank terminal gauger dialysis planning, expedite OP f/u. Assessment & [...] net neg 1/2-1L/day. -consider renal consult regarding tank terminal gauger dialysis planning. Assessment & Plan (09/06/2021 10:28 [...] 08/19/2021 Assessment & Plan (07/14/2024 8:53 AM BANANA GRADER): Following with neurology Assessment & Plan (01/05/2024 10:40 PM CDT): Follows with neurology. -continue risperidone 2mg QHS -continue benztropine 2mg daily Assessment & Plan (11/10/2023 4:37 PM CDT): Following with neurology Assessment & Plan (07/24/2023 1:50 PM BANANA GRADER): Following with neurology Assessment & Plan (01/23/2023 9:18 AM CDT): Following with neurology Assessment & Plan (10/10/2022 10:37 AM CDT): Following with neurology, ordered MRI, # given to son to schedule Assessment & Plan (06/09/2022 3:37 PM BANANA GRADER): Needs to reschedule with neurology Looking into prison, but declined for [facility] for schizoaffective disorder Assessment & Plan [...] needed Assessment & Plan (06/09/2022 3:37 PM BANANA GRADER): Reviewed PMH & PHQ Screening PHQ-2 Total [...] 1 Assessment & Plan (08/18/2024 8:44 AM BANANA GRADER): Chronic, stable. Does not report any stephanie [...] discussed. Assessment & Plan (07/14/2024 8:54 AM BANANA GRADER): Following with psychiatry, recommend reaching out to [...] psychiatry Assessment & Plan (07/24/2023 1:50 PM BANANA GRADER): Following with psychiatry Assessment & Plan (01/23/2023 [...] discussed. Assessment & Plan (08/09/2021 5:42 AM BANANA GRADER): Following with psychiatry Assessment & Plan (08/07/2021 3:28 PM BANANA GRADER): Chronic condition, switch to Haldol and has had multiple different problems including acute kidney failure in infectious process. Records not available at outside hospital-[facility]. Confounded by delirium. Currently experiencing delirium will discontinue Haldol and return to Risperdal as previously taking. Risperdal was discontinued due to poorly-controlled diabetes. Monitor in 1 to 2 weeks. Assessment & Plan (07/03/2021 7:24 AM BANANA GRADER): Following with psychiatry D/c risperidone, started on haldol Assessment & Plan (07/01/2021 9:16 PM BANANA GRADER): Chronic, stable. 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 The patient previously lived on her own and was observed to be hoarding. See additional problems-dementia. Evaluate again in 1 month after starting Risperdal. Iron deficiency anemia 04/02/2020 Assessment & Plan (05/06/2024 7:51 AM BANANA GRADER): Recommend discussing IV iron with nephrology Assessment & Plan (10/02/2020 4:35 PM CDT): Continue iron Assessment & Plan (05/28/2020 1:51 PM BANANA GRADER): Iron levels recently normalized, but still anemic, repeat today Assessment & Plan (04/16/2020 11:45 AM CDT): Recent iron within normal limits, H/H improving, continue supplementation until normalized Gastroesophageal reflux disease without esophagi tis 04/02/2020 Assessment & Plan (07/14/2024 8:56 AM BANANA GRADER): Restart protonix Upcoming EGD Assessment & Plan (01/05/2024 10:40 PM CDT): -continue famotidine Assessment & Plan (10/02/2020 4:35 PM CDT): Continue omeprazole Assessment & Plan (07/24/2020 2:06 PM BANANA GRADER): Recurrent symptoms off omeprazole, restart Assessment & Plan (05/28/2020 1:51 PM BANANA GRADER): Iron levels recently normalized, but still anemic, repeat today Assessment & Plan (04/02/2020 1:26 PM CDT): Start PPI History of amputation of toe 01/19/2020 Assessment & Plan (01/08/2021 3:50 PM CDT): Stable Assessment & Plan (10/02/2020 4:35 PM CDT): Stable Assessment & Plan (04/30/2020 1:00 PM BANANA GRADER): Stable Assessment & Plan (02/14/2020 5:15 PM CDT): Healing well Following with surgeon/wound clinic Assessment & Plan (01/19/2020 5:17 PM CDT): Has home health Following with vascular Hypertension associated with diabetes 12/13/2019 Assessment & Plan (07/14/2024 2:32 PM BANANA GRADER): Continue carvedilol, hydralazine Assessment & Plan (07/14/2024 8:51 AM BANANA GRADER): BP controlled today off medication Daughter reports nephrology said could restart medication, is planning to restart coreg first and monitor blood pressure prior to restarting nifedipine/hydralazine Assessment & Plan (05/06/2024 7:48 AM BANANA GRADER): BP controlled Continue nifedipine, hold prior to [...] x1 with HD. Most recent admission at [facility] with initiation of hydralazine and nifedipine [...] amlodipine Assessment & Plan (08/03/2023 4:02 PM BANANA GRADER): BP uncontrolled Start 5mg amlodipine Assessment & Plan (07/24/2023 1:49 PM BANANA GRADER): Blood pressure borderline today off medications Assessment & Plan (01/23/2023 9:18 AM CDT): Blood pressure borderline low today, asymptomatic Checking labs Advised to decrease amlodipine to 5mg and monitor blood pressure Assessment & Plan (10/10/2022 10:50 AM CDT): Continue coreg 6.25mg twice a day & 40mg valsartan Assessment & Plan (08/14/2022 10:43 AM BANANA GRADER): Blood pressure at goal, continue coreg 6.25mg twice a day Assessment & Plan (06/09/2022 3:32 PM BANANA GRADER): Blood pressure at goal, continue coreg 3.125mg [...] day Assessment & Plan (08/05/2021 10:35 AM BANANA GRADER): Blood pressure at goal Increase amlodipine to 10mg & d/c hydralazine per cardiology Assessment & Plan (05/28/2021 4:59 PM BANANA GRADER): Blood pressure above goal, but previously within [...] lisinopril Assessment & Plan (08/28/2020 12:12 PM BANANA GRADER): Blood pressure at goal Continue lisinopril Assessment & Plan (07/24/2020 2:05 PM BANANA GRADER): Blood pressure at goal Continue lisinopril Assessment & Plan (05/28/2020 1:50 PM BANANA GRADER): BP borderline Continue 10mg lisinopril Continue to monitor Assessment & Plan (04/30/2020 12:32 PM BANANA GRADER): BP borderline Continue 10mg lisinopril Continue to [...] 08/30/2019 Assessment & Plan (07/14/2024 2:31 PM BANANA GRADER): Controlled. Continue as per Endocrine and PCP Assessment & Plan (07/14/2024 8:50 AM BANANA GRADER): Following with endocrine, reviewed note Holding insulin [...] +SSI Assessment & Plan (07/24/2023 1:49 PM BANANA GRADER): Lab Results Component Value Date HGBA1C 8.1 [...] trulicity Assessment & Plan (08/14/2022 10:42 AM BANANA GRADER): Following with endocrine Continue lantus, 12 units humalog TIDAC & 1.5mg trulicity Assessment & Plan (06/09/2022 3:32 PM BANANA GRADER): Following with endocrine Home blood sugar at [...] as she had discussed this with outpatient tank worker - repeat A1c - resume home statin, not currently on feliciano due to kidney function Assessment & Plan (08/05/2021 10:35 AM BANANA GRADER): Continue 15 units lantus twice a day Assessment & Plan (07/03/2021 7:24 AM BANANA GRADER): Fasting blood sugar significantly improved Risperidone changed Continue current meds Continue to monitor Assessment & Plan (06/18/2021 11:22 AM BANANA GRADER): Increase lantus to 60 units nightly, if blood sugar still above goal after 1 week split into 33 units twice a day Follow up with blood sugar via portal in 2 weeks Continue jardiance 25mg Continue trulicity 4.5mg weekly Assessment & Plan (05/28/2021 4:58 PM BANANA GRADER): Increase lantus to 55 units nightly Continue [...] weekly Assessment & Plan (08/28/2020 1:00 PM BANANA GRADER): DM Care Plan: Meds: Lantus - continue [...] recheck Assessment & Plan (07/24/2020 2:05 PM BANANA GRADER): Formulary change / insurance, switched to [employer]. Will increase to 1.5mg Assessment & Plan (05/28/2020 1:50 PM BANANA GRADER): Check a1c Sixto isn't checking blood sugar regularly, but when she is she has several >200 so I lean towards increasing if a1c>7 Assessment & Plan (04/30/2020 12:31 PM BANANA GRADER): Blood sugar improved on 40 units basaglar [...] was in the room. Recently treated at [facility] for PNA with prolonged course of [...] was in the room. Recently treated at [facility] for PNA with prolonged course of [...] was in the room. Recently treated at [facility] for PNA with prolonged course of [...] was in the room. Recently treated at [facility] for PNA with prolonged course of [...] was in the room. Recently treated at [facility] for PNA with prolonged course of [...] was in the room. Recently treated at [facility] for PNA with prolonged course of [...] was in the room. Recently treated at [facility] for PNA with prolonged course of [...] was in the room. Recently treated at [facility] for PNA with prolonged course of [...] was in the room. Recently treated at [facility] for PNA with prolonged course of [...] was in the room. Recently treated at [facility] for PNA with prolonged course of [...] 11/10/2023 Assessment & Plan (08/14/2022 10:44 AM BANANA GRADER): Continue eliquis Assessment & Plan (06/09/2022 3:36 PM BANANA GRADER): Continue eliquis Assessment & Plan (04/02/2022 6:05 [...] 10/10/2022 Assessment & Plan (08/07/2021 3:30 PM BANANA GRADER): Subacute, persistent, hospitalized recently. She is alert [...] Impression: Patient recently had MRI performed at [facility] which revealed acute osteomyelitis to the [...] 08/28/2020 Assessment & Plan (05/28/2020 1:52 PM BANANA GRADER): Encouraged to follow up with wound clinic for reassessment Assessment & Plan (04/30/2020 12:31 PM BANANA GRADER): Following with wound clinic Assessment & Plan [...] acute osteomyelitis on recent MRI performed at [facility]. She is being treated with [...] nightly Assessment & Plan (08/14/2022 10:42 AM BANANA GRADER): Continue lyrica 150mg nightly Assessment & Plan (06/09/2022 3:32 PM BANANA GRADER): Continue lyrica 150mg nightly Assessment & Plan [...] status. Assessment & Plan (05/28/2021 4:58 PM BANANA GRADER): Continue lyrica 150mg nightly Assessment & Plan [...] gabapentin Assessment & Plan (08/28/2020 1:00 PM BANANA GRADER): On gabapentin Assessment & Plan (07/24/2020 2:05 PM BANANA GRADER): Continue gabapentin Assessment & Plan (04/02/2020 1:22 [...] Description 09/01/19 2:15 PM CDT Office Visit [facility] Cardiology [address] [place] [phone] Santo Vail MD Dyspnea, unspecified type (Primary Dx) 08/23/19 8:20 AM BANANA GRADER Office Visit [facility] Endocrinology Metabolism and Lipid [address] [facility] Medical Office [address], [address] [place] [address] Smith Gibbs MD Type 2 diabetes mellitus with diabetic nephropathy, with long-term current use of insulin (HCC) (Primary Dx); Type 2 diabetes mellitus with diabetic neuropathy, with long-term current use of insulin (HCC); Mixed hyperlipidemia; ESRD on hemodialysis (HCC); Primary hypertension 08/18/19 8:15 AM BANANA GRADER Telemedicine [facility] Behavioral Health [id number] [place] [address] [address] [place] [address] Adryan Swenson MD Schizoaffective disorder, bipolar type (HCC) (Primary Dx) 08/17/19 25 Telephone [facility] Primary Care at [address] [place] [phone] Cherelle Corcoran MD Medical Question/Miscellaneous 08/02/19 25 JOY ED [facility] Care Organization [address] [place] [address] Felicia Garcia MA 08/02/19 25 Nurse Triage [facility] Primary Care at [address] [place] [phone] Cherelle Corcoran MD 07/31/19 9:25 PM BANANA GRADER - 07/31/19 10:27 PM BANANA GRADER Emergency [facility] Emergency Department [address] [place] [address] Discharge Disposition: Left without being seen 07/27/19 25 Orders Only [facility] Endocrinology Metabolism and Lipid [address] [facility] 13th [place] [address] [place] [address] ProviderJoe MD 07/21/19 25 Telephone [facility] Dialysis Access Center at [facility] [address] [facility] [address] [place] [address] Varsha Oneill RN 07/18/19 2:45 PM BANANA GRADER Office Visit [facility] Primary Care at [address] [place] [phone] Cherelle Corcoran MD Fall, subsequent encounter (Primary Dx); Neck pain; Pressure injury of buttock, stage 1, unspecified laterality 07/18/19 25 Orders Only [facility] Gastroenterology at [place] [address] [facility] [address] [place] [phone] Jaya Grier MD Ulcer of esophagus without bleeding (Primary Dx) 07/15/19 25 2:30 PM BANANA GRADER - 07/15/19 11:59 PM BANANA GRADER Hospital Encounter [facility] Dialysis Access Center at [facility] [address] [facility] [address] [place] [address] ESRD (end stage renal diseas e) on dialysis (HCC) (Primary Dx) Discharge Disposition: Discharge to home or self care 07/15/19 10:00 AM BANANA GRADER - 07/15/19 11:00 AM BANANA GRADER Surgery [facility] Cardiac Lighting Fixture Installer [facility] [place] [address] Egdardo Kauffman MD PERMACATH EXCHANGE [98713 (CPT )] 07/15/19 9:13 AM BANANA GRADER - 07/15/19 1:20 PM BANANA GRADER Hospital Encounter [facility] Cardiac Lighting Fixture Installer [address] [place] [address] Edgardo Kauffman MD ESRD (end stage renal disease) on dialysis (HCC) Discharge Disposition: Discharge to home or self care 07/14/19 12:35 PM BANANA GRADER - 07/14/19 11:59 PM BANANA GRADER Hospital Encounter [facility] Diagnostic Imaging [address] [place] [address] Discharge Disposition: Discharge to home or self care 07/14/19 12:11 PM BANANA GRADER - 07/14/19 11:59 PM BANANA GRADER Hospital Encounter [facility] Dialysis Access Center at [address] [place] [address] ESRD (end stage renal diseas e) on dialysis (HCC) (Primary Dx); Type 2 diabetes mellitus with diabetic neuropathy, with long-term current use of insulin (HCC); Hypertension associated with diabetes (HCC); ESRD on hemodialysis (HCC); Hyperlipidemia associated with type 2 diabetes mellitus (HCC) Discharge Disposition: Discharge to home or self care 07/13/19 11:03 AM BANANA GRADER Anesthesia Event [facility] GI Lab [address] [place] [address] Larry Valdivia MD 07/13/19 9:00 AM BANANA GRADER - 07/13/19 9:30 AM BANANA GRADER Surgery [facility] GI Lab [address] [place] [address] Jaya Grier MD ESOPHAGOGASTRODUODENOSCOPY BIOPSY 07/13/19 8:39 AM BANANA GRADER - 07/13/19 12:26 PM [facility] Hospital Encounter [facility] GI Lab [address] [place] [address] Jaya Grier MD Anemia, unspecified type; Gastritis without bleeding, unspecified chronicity, unspecified gastritis type; Gastritis, presence of bleeding unspecified, unspecified chronicity, unspecified gastritis type Discharge Disposition: Discharge to home or self care 07/13/19 Nurse Triage [facility] Primary Care at [address] [phone] Cherelle Corcoran MD 07/13/19 JOY ED [facility]reach [facility] Care Organization [address] [place] [address] Ale Goldstein MA 07/12/19 11:16 AM BANANA GRADER - 07/12/19 3:44 PM [facility] Emergency [facility] Emergency Department [address] [place] [address] Fall, initial encounter (Primary Dx); Acute cystitis without hematuria Discharge Disposition: Discharge to home or self care 07/12/19 Telephone [facility] Primary Care at [address] [phone] Cherelle Corcoran MD Medical Question/Miscellaneous 07/11/19 Nurse Triage [facility] Primary Care at [address] [phone] Cherelle Corcoran MD 07/08/19 1:00 PM BANANA GRADER Office Visit [facility] Primary Care at [address] [address] Cherelle Corcoran MD Altered mental status, unspecified [...] without esophagitis; Frailty 07/07/19 25 3:00 PM BANANA GRADER Office Visit [facility] Cardiology [address] [facility] [address] [place] [phone] Santo Vail MD Dyspnea, unspecified type (Primary Dx) 07/07/19 25 1:30 PM BANANA GRADER Office Visit [facility] Endocrinology Metabolism and Lipid [address] [place] [address] Medical Office [address], [address] [place] [address] Pippa Troy NP Type 2 diabetes mellitus with diabetic nephropathy, with long-term current use of insulin (HCC) (Primary Dx); Dyslipidemia; Primary hypertension 07/04/19 25 Telephone [facility] Primary Care at [place] [address] [place] [address] [address] [place] [address] Cherelle Corcoran MD JOY Questions 06/27/19 25 Nurse Triage [facility] Primary Care at [address] [place] [address] Cherelle Corcoran MD 06/17/20 24 Orders Only [facility] Gastroenterology at [address] [place] [address] Jaya Grier MD Anemia, unspecified [...] LINE PLACEMENT > 5 YEARS 10/15/2023 N/A [facility] permacat - Dr. Mcdonald (exchanged 07/15/24 - [...] from doctor or pharmacy Often 01/20/2024 [facility] Utilities Answer Date Recorded In the past 12 months has th e [employer], gas, oil, or water company threatened to [...] in a retirement (including now)? No 10/30/2023 PHQ-9 Answer Date [...] any time in the past 12 m [facility], were you homeless or living in [...] on file Legal Sex Female 9:03 AM BANANA GRADER Gender Identity Female 02/08/2020 6:39 PM [...] 36.3 C (97.3 F) 07/31/2024 12:52 PM BANANA GRADER Respiratory Rate 16 07/31/2024 12:52 PM BANANA GRADER Oxygen Saturation 97% 08/31/2024 2:38 PM CDT Inhaled Oxygen Concentration - - Weight 60.1 kg (132 lb 6.4 oz) 08/31/2024 2:38 P M CDT Height 157.5 cm (5' 2 ) 08/22/2024 8:51 AM BANANA GRADER Body Mass Index 24.22 08/22/2024 8:51 AM BANANA GRADER Plan of Treatment Upcoming Encounters Date Type Department Care Team (Latest Contact Info) Description 09/13/2024 8:00 AM CDT Hospital Encounter [facility] GI Lab [address] [place] [address] Jaya Grier MD [facility] [address] [place] [address] [place] [address] 09/13/2024 8:00 AM CDT - 09/13/2024 8:30 AM CDT Surgery [facility] GI Lab [address] [place] [address] Jaya Grier MD [facility] [address] [place] [address] [place] [address] ESOPHAGOGASTRODUODENOSCOPY Scheduled Procedures Name Priority Associated Diagnoses [...] history exists Medical Devices Implanted Type Area Representative Government Relations Device Identifier Shelf Expiration Date Model / Serial / Lot [employer] Vascpak Safesheath D-Pro 15.5fr 24cm Kit Catheter [id number] - [id number] Implanted:Qty: 1 on 10/15/2023 at [facility] [employer] [facility] 10/19/2025 [id number] / / [id number] [facility] [employer] [facility] Dur[employer]low Embosafe 15.5fr 24cm Basic 2 Lumen Kit Catheter [id number] - [id number] Implanted:Qty: 1 on 07/15/2024 by Edgardo Kauffman MD at [facility] 08/19/2026 [id number] 15 / / [id number] Procedures Procedure Name Priority Date/Time Associated Diagnosis Comments POCT HEMOGLOBIN A1C Routine 08/22/2024 8:55 AM BANANA GRADER Type 2 diabetes mellitus with diabetic nephropathy, with long-term current use of insulin (HCC) RESPIRATORY PATHOGEN PANEL STAT 07/31 1:02 PM BANANA GRADER DIABETIC EYE EXAM Routine 07/27/2024 12:37 PM BANANA GRADER HM DIABETES EYE EXAM Routine 07/22/2024 XR CHEST 1 VIEW ED Urgent/IP Urgent 07/15/2024 1:11 PM BANANA GRADER RPL DRE CVC W/O PUMP [id number] Routine 07/15 12:40 PM BANANA GRADER ESRD (end stage renal disease) on dialysis ([facility]) XR CHEST 1 VIEW ED Urgent/IP Urgent 07/14/2024 1:16 PM BANANA GRADER EGFR STAT 07/14/2024 12:34 PM BANANA GRADER DIFFERENTIAL AUTO STAT 07/14/2024 12:34 PM BANANA GRADER BASIC METABOLIC PANEL STAT 07/14/2024 12:34 PM BANANA GRADER CBC WITH AUTO DIFFERENTIAL STAT 07/14 12:34 PM BANANA GRADER SURGICAL PATHOLOGY Routine 07/13/2024 11:10 AM BANANA GRADER Anemia, unspecified type Gastritis without bleeding, unspecified chronicity, unspecified gastritis type ESOPHAGOGASTRODUODENOSCOPY BIOPSY 07/13/2024 11:03 AM BANANA GRADER Anemia, unspecified type Gastritis without bleeding, unspecified chronicity, unspecified gastritis type EGD 07/13/2024 10:59 AM BANANA GRADER POC BLOOD GAS AND CHEMISTRIE S, VENOUS Routine 07/13/2024 10:12 AM BANANA GRADER TROPONIN T HIGH-SENSITIVITY 2-HOUR Timed 07/12/2024 1:59 PM BANANA GRADER URINALYSIS, MICROSCOPIC ONLY STAT 1:05 PM BANANA GRADER DRUGS OF ABUSE SCREEN, URINE WITHOUT CONFIRMATION STAT 07/12/2024 1:05 PM BANANA GRADER URINE CULTURE STAT 07/12/2024 1:05 PM BANANA GRADER URINALYSIS AND REFLEX TO MICROSCOPIC AND CULTURE STAT 07/12/2024 1:05 PM BANANA GRADER THYROID FUNCTION CASCADE STAT 025 11:53 AM BANANA GRADER EGFR STAT 07/12/2024 11:53 AM BANANA GRADER DIFFERENTIAL AUTO STAT 07/12/2024 11:53 AM BANANA GRADER TROPONIN T HIGH-SENSITIVITY SERIES (BASELINE, 2HR, 4HR, 6HR) STAT 07/12/2024 11:53 AM BANANA GRADER CBC WITH AUTO DIFFERENTIAL STAT 07/12 11:53 AM BANANA GRADER COMPREHENSIVE METABOLIC PANEL STAT 11:53 AM BANANA GRADER INFLUENZA A/B, RSV, AND COVID-19 PCR Routine 07/12/2024 11:53 AM BANANA GRADER ECG 12-LEAD STAT 07/12/2024 11:[address] FACIAL BONES WO CONTRAST ED 06/23 10:[address] CERVICAL SPINE WO CONTRAST ED 10:[address] HEAD WO CONTRAST ED 07/12/2024 10:38 AM BANANA GRADER XR SHOULDER RIGHT 2 OR MORE VIEWS ED 07/12/2024 10:08 AM BANANA GRADER XR SHOULDER LEFT 2 OR MORE VIEWS ED 07/12/2024 10:08 AM BANANA GRADER POCT GLUCOSE DEVICE Routine 07/12/2024 9:33 AM BANANA GRADER LIPID PANEL Routine 05/16/2024 10:14 AM BANANA GRADER Mixed hyperlipidemia COLONOSCOPY 03/01/2024 8:49 AM CDT [...] * POCT hemoglobin A1c (08/22/2024 8:55 AM BANANA GRADER) Hemoglobin A1C, POC 7.7 4.0 - 5.6 % Blood 08/22/2024 8:55 AM BANANA GRADER Smith Gibbs MD POINT OF CARE TEST ORDERABLE S Final Result * Respiratory pathogen panel Nasopharyngeal (07/31/2024 1:02 PM BANANA GRADER) Influenza A RNA Not Detected Not Detected [...] Not Detected CERNER Comment: Interpretive Data The [employer] FilmArray Respiratory Panel (RP2.1) assay is a [...] assay has FDA clearance for testing of CHANGE MANAGEMENT MANAGER swabs. The performance characteristics of this assay have been determined by [facility]. Current interpretive data was last revised on 2021. Nasopharyngeal 07/31/2024 1: 02 PM BANANA GRADER 07/31/2024 1:05 PM BANANA GRADER Narrative NILSA - 07/31/2024 2:05 PM BANANA GRADER Is the Patient experiencing symptoms consistent with COVID?->Yes Surveillance testing for transplant patient?->No Result [facility] Lucy Lucero MD LAB MICROBIOLOGY - GENE [facility] ORDERABLES Final Result NILSA [address] Department [place] [address] * Diabetic Eye Exam (07/27/2024 12:37 PM BANANA GRADER) Historical Provider HEALTH MAINTENANCE Final Result * HM DIABETES EYE EXAM (07/22/2024) Historical Provider HEALTH MAINTENANCE Final Result * XR Chest 1 View (07/15/2024 1:11 PM BANANA GRADER) Anatomical Region Laterality Modality Body, Chest N/A Computed Radiogr aphy 07/15/2024 1:35 PM BANANA GRADER Narrative 07/15/2024 1:36 PM BANANA GRADER EXAM DESCRIPTION: XR CHEST 1 VIEW REASON [...] Yosef Lindo D.O. PS T: Report ID: [id number] Reading Location: [id number] Procedure Note Yosef Lindo, - 07/15/2024 EXAM [...] Yosef Lindo D.O. PS T: Report ID: [id number] Reading Location: [id number] Edgardo Kauffman MD IMG XR PROCEDURES Final Re sult * RPL DRE CVC W/O PUMP [id number] (07/15/2024 12:40 PM BANANA GRADER) Anatomical Region Laterality Modality X-Ray Angiograph y Narrative 07/15/2024 12:45 PM BANANA GRADER Please see OpNote for result. Edgardo Kauffman MD CV CARDIAC CATH PROCEDURES Final Result * XR Chest 1 View (07/14/2024 1:16 PM BANANA GRADER) Anatomical Region Laterality Modality Body, Chest N/A Computed Radiogr aphy 07/14/2024 1:20 PM BANANA GRADER Narrative 07/14/2024 1:22 PM BANANA GRADER EXAM DESCRIPTION: XR CHEST 1 VIEW REASON [...] Salvador Villa M.D. KR T: Report ID: [id number] Reading Location: [id number] Procedure Note Salvador Villa MD - 07/14/2024 [...] Salvador Villa M.D. KR T: Report ID: [id number] Reading Location: [place] [address] Edgardo Kauffman MD IMG XR PROCEDURES Final Re sult * (ABNORMAL) eGFR (07/14/2024 12:34 PM BANANA GRADER) eGFR 7(L) >=60 mL/min/1. 73 m2 Comment: [...] reviewed 2021. Blood 07/14/2024 12:3 4 PM BANANA GRADER 07/14/2024 12:41 PM BANANA GRADER Edgardo Kauffman MD LAB BLOOD ORDERABLES Final Result NILSA [facility] Department [place] [address] * (ABNORMAL) Differential, auto (07/14/2024 12:34 PM BANANA GRADER) Neutrophil abs 7.8(H) 1.5 - 6.5 K/cumm Imm gran abs 0.0 0.0 - 0.1 K/cumm [facility] Lymphocyte abs 1.5 0.8 - 3.3 K/cumm [facility] Monocyte abs 0.5 0.2 - 0.8 K/cumm [facility] Eosinophil abs 0.2 0.0 - 0.5 K/cumm [facility] Basophil abs 0.0 0.0 - 0.1 K/cumm [facility] Neutrophil pct 78.1 % [facility] Comment: Interpretive Data Percent cell count reference ranges are not reported, since discordance with absolute values may lead to misinterpretation of CBC data. Current Interpretive Data was last revised on 2017. Imm gran pct 0.4 % [facility] Comment: Interpretive Data Percent cell count reference ranges are not reported, since discordance with absolute values may lead to misinterpretation of CBC data. Current Interpretive Data was last revised on 2017. Lymphocyte pct 14.8 % [facility] Comment: Interpretive Data Percent cell count reference ranges are not reported, since discordance with absolute values may lead to misinterpretation of CBC data. Current Interpretive Data was last revised on 2017. Monocyte pct 4.7 % [facility] Comment: Interpretive Data Percent cell count reference ranges are not reported, since discordance with absolute values may lead to misinterpretation of CBC data. Current Interpretive Data was last revised on 2017. Eosinophil pct 1.6 % [facility] Comment: Interpretive Data Percent cell count reference ranges are not reported, since discordance with absolute values may lead to misinterpretation of CBC data. Current Interpretive Data was last revised on 2017. Basophil pct 0.4 % [facility] Comment: Interpretive Data Percent cell count reference ranges are not reported, since discordance with absolute values may lead to misinterpretation of CBC data. Current Interpretive Data was last revised on 2017. Blood 07/14/2024 12:3 4 PM BANANA GRADER 07/14/2024 12:41 PM BANANA GRADER Edgardo Kauffman MD LAB BLOOD ORDERABLES Final Result Performing Organization Address [facility] Co de Phone Number NILSA RODRIGES [address] [place] [phone] * (ABNORMAL) CBC with auto differential (07/14/2024 12:34 PM BANANA GRADER) [facility] WBC 9.9 3.8 - 9.9 K/cumm Hgb 11.6(L) 11.9 - 15.5 g/dL [facility] Hct 35.3(L) 35.6 - 45.5 % [facility] Plt 241 150 - 400 K/cumm [facility] MPV 11.0 9.1 - 12.3 fL [facility] RBC 3.63(L) 3.90 - 5.20 M/cumm [facility] MCV 97.2(H) 81.3 - 96.4 fL [facility] MCH 32.0 27.1 - 33.3 pg [facility] MCHC 32.9 32.3 - 35.7 g/dL [facility] RDW CV 15.4(H) 11.1 - 14.9 % [facility] RDW SD 54.8(H) 35.7 - 48.1 fL [facility] NRBC abs 0.00 0.00 - 0.01 K/cumm [facility] Blood 07/14/2024 12:3 4 PM BANANA GRADER 07/14/2024 12:41 PM BANANA GRADER Edgardo Kauffman MD LAB BLOOD ORDERABLES Final Result Performing Organization Address City/[facility] Co de Phone Number NILSA [address] [place] [address] * (ABNORMAL) Basic metabolic panel (07/14/2024 12:34 PM BANANA GRADER) [facility] Sodium 138 135 - 145 mmol/L Potassium, pl 4.1 3.3 - 4.9 mmol/L [facility] Comment:Hemolyzed; Potassium value may be falsely elevated by as much as 1.0 mmol/L. Suggest redraw and reanalysis. Chloride 100 97 - 110 mmol/L [facility] CO2 25 22 - 32 mmol/L [facility] Anion gap 13 2 - 15 mmol/L [facility] BUN 51(H) 6 - 25 mg/dL [facility] Creatinine 6.22(H) 0.60 - 1.10 mg/dL [facility] Glucose 155 70 - 199 mg/dL [facility] [...] 2022. Calcium 9.4 8.5 - 10.3 mg/dL [facility] Blood 07/14/2024 12:3 4 PM BANANA GRADER 07/14/2024 12:41 PM BANANA GRADER Edgardo Kauffman MD LAB BLOOD ORDERABLES Final Result [address] Department [place] [address] * Surgical pathology (07/13/2024 11:10 AM BANANA GRADER) Tissue (Duodenum, Biopsy) 07/13/2024 11:10 AM BANANA GRADER Tissue (Gastric/Stomach biopsy) 07/13/2024 11:11 AM BANANA GRADER Tissue (Gastric/Stomach biopsy) 07/13/2024 11:11 AM BANANA GRADER Tissue (Esophageal biopsy) 07/13/2024 11:13 AM BANANA GRADER Narrative PATHOLOGY [facility] - 07/14/2024 1:59 PM BANANA GRADER [facility] Department of Pathology [address] [place] [id number] Note to Patients: This report may contain [...] : 1950 (Age: 73) Gender: F Address: [address] [place] [address] Hospital #: [id number] Service: Gastro Location: Patient Type: [facility] OUTPATIENT Taken: 07/13/2024 Received: 07/13/2024 [...] epidermoid metaplasia. - Negative for dysplasia. Romaine Interinao MD, PHD Report Electronically Reviewed and Signed [...] cm. Entirely submitted. Labeled D1. Jar 0. [facility]/07/13/2024 13:31 CAMILA Johnson, PA (ASCP) Microscopic slide review and interpretation for this case was performed at [facility], Department of Surgical Pathology, [address] [facility] [place], [place] [id number], [place] [address] CLIA # [id number] us Jaya Grier MD LAB PATHOLOGY ORDERABLES Final R esult PATHOLOGY [facility] * EGD (07/13/2024 10:59 AM BANANA GRADER) Anatomical Region Laterality Modality Other Narrative Procedure Note Jaya Grier MD - 07/13/2024 10:59 AM CST [facility] GI ENDOSCOPY Patient Name: Sixto Chakraborty Procedure Date: 07/13/2024 10:59 AM Date of : 1950 Admit Type: Outpatient Age: 73 Gender: Female Attending MD: Jaya Grier M.D. Room: [facility] ENDOSCOPY ROOM 06 Note Status: [...] On: 07/13/2024 10:59 AM Recognized by the [employer] for promoting quality in endoscopy Jaya Grier MD ENDOSCOPY PROCEDURES Final Resul t * (ABNORMAL) POC Blood Gas and Chemistries, Venous - (07/13/2024 10:12 AM BANANA GRADER) pH,chris POC 7.40 7.32 - 7.43 pCO2, chris POC 49 40 - 50 mmHg [facility] pO2,chris POC 36 mmHg [facility] Comment: Interpretive Data No reference range established. Current interpretive data was last revised 2020. HCO3, chris (Calc) POC 30 20 - 30 mmol/L [facility] Base excess, chris POC 4 mmol/L [facility] Comment: Interpretive Data No reference range established. Current interpretive data was last revised 2020. Hemoglobin, chris POC 13.9 11.9 - 15.5 g/dL [facility] Hematocrit, chris POC 41.0 35.6 - 45.5 % [facility] Sodium, chris POC 134(L) 135 - 145 mmol/L [facility] Potassium, chris POC 4.6 3.3 - 4.9 mmol/L [facility] Comment: Interpretive Data This method is not able to assess for hemolysis, which may falsely increase potassium concentrations. If further testing is needed to evaluate this result, consider in-laboratory plasma potassium. Current Interpretive Data was last revised on 2022. Glucose, chris POC 145 70 - 199 mg/dL NILSA Ionized Calcium, chris POC 4.70 4.50 - 5.10 mg/dL NILSA Blood 07/13/2024 10:1 2 AM BANANA GRADER 07/13/2024 10:12 AM BANANA GRADER Jaya Grier MD LAB POCT ORDERABLES - DEVICE Fin al Result Performing Organization Address [facility] Co de Phone Number CARLOS [facility] [address] [facility] [place] [address] * (ABNORMAL) Troponin T high-sensitivity 2-hour (07/12/2024 1:59 PM BANANA GRADER) Trop T hs 63(H) <=14 ng/L Comment: Interpretive Data For further hscTnT resources including the diagnostic algorithm and an aid in interpretation, copy and paste this link: https://nrl.testcatalog.org/show/hsTrop Current Interpretive Data last revised 2020. Testing performed by: [address] [address] Trop T hs delta -5 ng/L NILSA Comment:Testing performed by : [address] [address] Trop T hs interp Equivocal NILSA Comment:Testing performed by : [address] [address] Blood 07/12/2024 1:59 PM BANANA GRADER 07/12/2024 2:20 PM BANANA GRADER Donna CUEVA LAB BLOOD ORDERABLES Final Re sult Performing Organization Address City/[facility]/ZIP Co de Phone Number [facility] [address] [facility] Department [place] [address] * (ABNORMAL) Urinalysis reflex to microscopic and culture Urine (07/12/2024 1:05 PM BANANA GRADER) Color, ur Mikayla Yellow Comment:Testing performed by : [facility], [address] [place] [address]., [id number] Clarity, ur Turbid(A) Clear NILSA Comment:Testing performed by : [facility], [address] [place] [address], [place]., [address] Specific gravity, ur 1.006 1.003 - 1.030 NILSA Comment:Testing performed by : [address], [place]., [address] pH, urine 6.0 NILSA Comment: Interpretive Data U rine pH is affected by diet, medications, systemic acid-base disturbances, and renal tubular function. pH may affect urinary stone formation. For example, urine pH below 6.0 may help reduce the tendency for calcium phosphate stones and pH greater than 6.0 may reduce the tendency for uric acid stone formation. Source: [facility] [employer] Current Interpretive Data was last revised on 2017 Testing performed by: [address] [address] Protein, ur ql 2+(A) Negative NILSA Comment:Testing performed by : [address] [address] Glucose, ur ql 1+(A) Negative NILSA Comment:Testing performed by : [address] [address] Ketones, ur Negative Negative NILSA Comment:Testing performed by : [address] [address] Bilirubin, ur Negative Negative NILSA Comment:Testing performed by : [address] [address] Blood, ur 2+(A) Negative NILSA Comment:Testing performed by : [address] [address] Urobilinogen, ur <2.0 <2.0 mg/dL NILSA Comment:Testing performed by : [address], [place]., [address] Nitrite, ur Negative Negative NILSA Comment:Testing performed by : [address] [address] Leukocyte esterase, ur 4+(A) Negative CERNER MH Comment:Testing performed by : [facility], [address] [place] [address]., [address] UA reflex comment Reflex to microscopic UA will be performed. NILSA RODRIGES Comment:Testing performed by : [facility], [address] [place] [address]., [address] Urine 07/12/2024 1:05 PM BANANA GRADER 07/12/2024 1:09 PM BANANA GRADER Donna CUEVA LAB MICROBIOLOGY - GENERAL OR DERABLES Final Result NILSA [address] [facility] Department [place] [address] * Drugs of Abuse Screen, Urine without Confirmation (07/12/2024 1:05 PM BANANA GRADER) Amphetamine, ur Not Detected CutOff 500ng/mL Comment: Interpretive Data - Amphetamines: Samples containing greater than 500 ng/mL d-methamphetamine or other cross-reacting amphetamine compounds are reported as positive. Amphetamine immunoassays are subject to significant false positive rates due to cross-reactivity of non-amphetamine drugs. Confirmatory testing required for definitive results. Current Interpretive Data was last reviewed 2023. Testing performed by: [address] [address] Barbiturates, ur Not Detected CutOff 200ng/mL NILSA RODRIGES Comment: Interpretive Data - Barbiturates: Samples containing greater than 200 ng/mL secobarbital or other cross-reacting barbiturate compounds are reported as positive. False positive and false negative results are possible. Confirmatory testing required for definitive results. Current Interpretive Data was last reviewed 2023. Testing performed by: [address] [address] Benzodiazepines, ur Not Detected CutOff 100ng/mL NILSA RODRIGES Comment: Interpretive Data - Benzodiazepines: Samples containing greater than 100 ng/mL nordiazepam or other cross-reacting compounds are reported as positive. False positive and false negative results are possible. Confirmatory testing required for definitive results. Current Interpretive Data was last reviewed 2023. Testing performed by: [address] [place] [address] Cannabinoids, ur Not Detected CutOff 50 ng/mL [facility] Comment: Interpretive Data - Cannabinoids: Samples containing greater than 50 ng/mL delta-9 THC -COOH or other cross- reacting compounds are reported as positive. False positive and false negative results are possible. Confirmatory testing required for definitive results. Current Interpretive Data was last reviewed 2023. Testing performed by: [address] [address] Cocaine, ur Not Detected CutOff 150ng/mL [facility] Comment: Interpretive Data - Cocaine: Samples containing greater than 150 ng/mL benzoylecgonine or other cross- reacting compounds are reported as positive. False positive and false negative results are possible. Confirmatory testing required for definitive results. Current Interpretive Data was last reviewed 2023. Testing performed by: [address] [address] Fentanyl, Ur Not Detected Cutoff 1 ng/mL [facility] Comment: Interpretive Data - Fentanyl: Samples containing greater than 1 ng/mL fentanyl or other cross-reacting fentanyl compounds are reported as positive. False positive and false negative results are possible. Confirmatory testing required for definitive results. Current Interpretive Data was last reviewed 2023. Testing performed by: [address] [address] Methadone, ur Not Detected CutOff 300ng/mL [facility] Comment: Interpretive Data - Methadone: Samples containing greater than 300 ng/mL d,l-methadone or other cross-reacting compounds are reported as positive. False positive and false negative results are possible. Confirmatory testing required for definitive results. Current Interpretive Data was last reviewed 2023. Testing performed by: [address] [address] Opiates, ur Not Detected CutOff 300ng/mL [facility] Comment: Interpretive Data - Opiates: Samples containing greater than 300 ng/mL morphine or other cross-reacting compounds are reported as positive. False positive and false negative results are possible. Confirmatory testing required for definitive results. Current Interpretive Data was last reviewed 2023. Testing performed by: [address] [address] Oxycodone, ur Not Detected CutOff 100ng/mL NILSA Comment: Interpretive Data - Oxycodone: Samples containing greater than 100 ng/mL oxycodone or other cross-reacting compounds are reported as positive. False positive and false negative results are possible. Confirmatory testing required for definitive results. Current Interpretive Data was last reviewed 2023. Testing performed by: [address] [address] Phencyclidine, ur Not Detected CutOff 25 ng/mL NILSA Comment: Interpretive Data - Phencyclidine: Samples containing greater than 25 ng/mL phencyclidine or other cross-reacting compounds are reported as positive. False positive and false negative results are possible. Confirmatory testing required for definitive results. Current Interpretive Data was last reviewed 2023. Testing performed by: [address] [address] Urine Creatinine 74 mg/dL NILSA Comment: Interpretive Data Urine Creatinine: < 10 mg/dL is extremely dilute = or > 10 but < 20 mg/dL is dilute = or > 20 mg/dL is normal Current Interpretive Data was last revised on 2017. Testing performed by: [address] [address] Urine 07/12/2024 1:05 PM BANANA GRADER 07/12/2024 1:09 PM BANANA GRADER Narrative [facility] - 07/12/2024 1:31 PM BANANA GRADER Drug of Abuse screening is performed by immunoassay for medical purposes only. This is not to be used for Pain Management purposes. us Donna CUEVA LAB URINE ORDERABLES Final Re sult [facility] [address] [facility] Department [place] [address] * (ABNORMAL) Urinalysis, microscopic only (07/12/2024 1:05 PM BANANA GRADER) WBC, ur >50(A) 0 - 5 /HPF Comment:Testing performed by : [address] [address] RBC, ur 11-20(A) 0 - 2 /HPF NLISA RODRIGES Comment:Testing performed by : [facility], [address] [place] [address]., [address] Bacteria, ur 4+(A) NILSA RODRIGES Comment:Testing performed by : [facility], [address] [place] [address]., [id number] Culture Reflex Comment Reflex to urine culture will be performed. NILSA Comment:Testing performed by : [facility], [address] [place] [address]., [id number] Urine 07/12/2024 1:05 PM BANANA GRADER 07/12/2024 1:09 PM BANANA GRADER Donna CUEVA LAB URINE ORDERABLES Final Re sult NILSA RODRIGES [address] [facility] Department [place] [address] * (ABNORMAL) Urine culture Urine (07/12/2024 1:05 PM BANANA GRADER) Report Final Report: Greater than or equal to 100,000 colonies/mL of Escherichia coli (.) Comment:Testing performed by : [facility], [address] [facility] [place] [address] Organism ESCHERICHIA COLI NILSA Urine 07/12/2024 1:05 PM BANANA GRADER 07/12/2024 3:03 PM BANANA GRADER Narrative NILSA - 07/14/2024 2:20 PM BANANA GRADER Urine culture reflexed based upon urinalysis results. Testing performed by [facility] ([phone]) Organism Antibiotic Method Susceptibility Escherichia coli Ampicillin [...] OR DERABLES Final Result Performing Organization Address City/[facility]/ZIP Co de Phone Number NILSA [address] Department of [place] [address] * (ABNORMAL) Troponin T high-sensitivity series (baseline, 2hr, 4hr, 6hr) (07/12/2024 11:53 AM BANANA GRADER) Pathologist [facility] Trop T hs 68(H) <=14 ng/L Comment: REDRAW: HEMOLYZED SPECIMEN Interpretive Data For further hscTnT resources including the diagnostic algorithm and an aid in interpretation, copy and paste this link: https://nrl.testcatalog.org/show/hsTrop Current Interpretive Data last revised 2020. Testing performed by: [address] [address] Blood 07/12/2024 11:5 3 AM BANANA GRADER 07/12/2024 11:58 AM BANANA GRADER Donna CUEVA LAB BLOOD ORDERABLES Final Re sult Performing Organization Address City/[facility]/ZIP Co de Phone Number NILSA [address] Department [place] [address] * Influenza A/B, RSV, and COVID-19 PCR Nasopharyngeal (07/12/2024 11:53 AM BANANA GRADER) [facility] COVID-19 RNA Negative Negative Comment:Testing performed by : [address] [address] Influenza A RNA Negative Negative NILSA Comment:Testing performed by : [address] [address] Influenza B RNA Negative Negative NILSA Comment:Testing performed by : [address] [address] RSV RNA Negative Negative NILSA Comment: Interpretive data: Testing performed by [facility]. This test is performed using the EvalYou Xpert Xpress CoV-2/Flu/RSV plus assay. This is a multiplex, real-time reverse transcriptase PCR assay intended for the qualitative detection of nucleic acid from SARS-CoV-2, influenza A, influenza B, and respiratory syncytial virus. This assay has been cleared by the [place] Food and Drug administration. The performance characteristics have been verified by the [facility]. Results must be considered in the clinical context, and a negative result does not rule out infection. Interpretive Data last revised 2023 Testing performed by: [facility], [address] [place] [address]., [address] Nasopharyngeal 07/12/2024 11 :53 AM BANANA GRADER 07/12/2024 11:58 AM BANANA GRADER Narrative NILSA - 07/12/2024 12:38 PM BANANA GRADER Is the Patient experiencing symptoms consistent with COVID?->Unknown Donna CUEVA LAB MICROBIOLOGY - GENERAL OR DERABLES Final Result NILSA [address] [facility] Department [place] [address] * (ABNORMAL) eGFR (07/12/2024 11:53 AM BANANA GRADER) eGFR 10(L) >=60 mL/min/1. 73 m2 Comment: [...] reviewed 2021. Testing performed by: [facility], [address] [place] [address]., [address] Blood 07/12/2024 11:5 3 AM BANANA GRADER 07/12/2024 11:58 AM BANANA GRADER us Donna CUEVA LAB BLOOD ORDERABLES Final Re sult NILSA [address] [facility] Department [place] [address] * (ABNORMAL) Differential, auto (07/12/2024 11:53 AM BANANA GRADER) Neutrophil abs 9.2(H) 1.5 - 6.5 K/cumm Comment:Testing performed by : [address] [address] Imm gran abs 0.1 0.0 - 0.1 K/cumm NILSA Comment:Testing performed by : [address] [address] Lymphocyte abs 1.5 0.8 - 3.3 K/cumm NILSA Comment:Testing performed by : [address] [address] Monocyte abs 0.5 0.2 - 0.8 K/cumm NILSA Comment:Testing performed by : [address] [address] Eosinophil abs 0.1 0.0 - 0.5 K/cumm NILSA Comment:Testing performed by : [address] [address] Basophil abs 0.0 0.0 - 0.1 K/cumm NILSA Comment:Testing performed by : [address] [address] Neutrophil pct 81.0 % NILSA Comment: Interpretive Data Percent cell count reference ranges are not reported, since discordance with absolute values may lead to misinterpretation of CBC data. Current Interpretive Data was last revised on 2017. Testing performed by: [address] [address] Imm gran pct 0.4 % NILSA Comment: Interpretive Data Percent cell count reference ranges are not reported, since discordance with absolute values may lead to misinterpretation of CBC data. Current Interpretive Data was last revised on 2017. Testing performed by: [address] [address] Lymphocyte pct 13.4 % [facility] Comment: Interpretive Data Percent cell count reference ranges are not reported, since discordance with absolute values may lead to misinterpretation of CBC data. Current Interpretive Data was last revised on 2017. Testing performed by: [address] [address] Monocyte pct 4.2 % [facility] Comment: Interpretive Data Percent cell count reference ranges are not reported, since discordance with absolute values may lead to misinterpretation of CBC data. Current Interpretive Data was last revised on 2017. Testing performed by: [address] [address] Eosinophil pct 0.6 % [facility] Comment: Interpretive Data Percent cell count reference ranges are not reported, since discordance with absolute values may lead to misinterpretation of CBC data. Current Interpretive Data was last revised on 2017. Testing performed by: [address] [address] Basophil pct 0.4 % [facility] Comment: Interpretive Data Percent cell count reference ranges are not reported, since discordance with absolute values may lead to misinterpretation of CBC data. Current Interpretive Data was last revised on 2017. Testing performed by: [address] [address] Blood 07/12/2024 11:5 3 AM BANANA GRADER 07/12/2024 11:58 AM BANANA GRADER us Donna CUEVA LAB BLOOD ORDERABLES Final Re sult NILSA RODRIGES [address] [facility] Department [place] [address] * Thyroid Function Stewart (07/12/2024 11:53 AM BANANA GRADER) TSH 1.22 0.30 - 4.20 mcIUnit/mL Comment:Testing performed by : [address] [address] Blood 07/12/2024 11:5 3 AM BANANA GRADER 07/12/2024 11:58 AM BANANA GRADER us Donna CUEVA LAB BLOOD ORDERABLES Final Re sult NILSA [address] [facility] Department [place] [address] * (ABNORMAL) CBC with auto differential (07/12/2024 11:53 AM BANANA GRADER) WBC 11.3(H) 3.8 - 9.9 K/cumm Comment:Testing performed by : [address] [address] Hgb 12.3 11.9 - 15.5 g/dL NILSA Comment:Testing performed by : [address] [address] Hct 37.2 35.6 - 45.5 % NILSA Comment:Testing performed by : [address] [address] Plt 230 150 - 400 K/cumm NILSA Comment:Testing performed by : [address] [address] MPV 10.7 9.1 - 12.3 fL NILSA RODRIGES Comment:Testing performed by : [address] [address] RBC 3.85(L) 3.90 - 5.20 M/cumm NILSA Comment:Testing performed by : [address] [address] MCV 96.6(H) 81.3 - 96.4 fL NILSA Comment:Testing performed by : [address] [address] MCH 31.9 27.1 - 33.3 pg NILSA RODRIGES Comment:Testing performed by : [address] [address] MCHC 33.1 32.3 - 35.7 g/dL NILSA RODRIGES Comment:Testing performed by : [address] [address] RDW CV 15.7(H) 11.1 - 14.9 % NILSA RODRIGES Comment:Testing performed by : [address] [address] RDW SD 55.5(H) 35.7 - 48.1 fL NILSA RODRIGES Comment:Testing performed by : [address] [address] NRBC abs 0.00 0.00 - 0.01 K/cumm NILSA RODRIGES Comment:Testing performed by : [address] [address] Blood 07/12/2024 11:5 3 AM BANANA GRADER 07/12/2024 11:58 AM BANANA GRADER us Donna CUEVA LAB BLOOD ORDERABLES Final Re sult NILSA RODRIGES [address] [place] [address] Department [place] [address] * (ABNORMAL) Comprehensive metabolic panel (07/12/2024 11:53 AM BANANA GRADER) Sodium 134(L) 135 - 145 mmol/L Comment:Testing performed by : [address] [address] Potassium, pl 4.6 3.3 - 4.9 mmol/L NILSA RODRIGES Comment: HEMOLYZED: Hemolysis interferes with the above test. Testing performed by: [address] [address] Chloride 93(L) 97 - 110 mmol/L NILSA RODRIGES Comment:Testing performed by : [address] [address] CO2 28 22 - 32 mmol/L NILSA RODRIGES Comment:Testing performed by : [address] [address] Anion gap 13 2 - 15 mmol/L NILSA RODRIGES Comment:Testing performed by : [address] [address] BUN 33(H) 6 - 25 mg/dL NILSA Comment:Testing performed by : [address] [address] Creatinine 4.60(H) 0.60 - 1.10 mg/dL [facility] Comment:Testing performed by : [address] [address] Glucose 177 70 - 199 mg/dL [facility] [...] was last revised 2022. Testing performed by: [address] [address] Calcium 9.5 8.5 - 10.3 mg/dL [facility] Comment:Testing performed by : [address] [address] Bilirubin, total 0.4 0.1 - 1.2 mg/dL [facility] Comment:Testing performed by : [address] [address] Protein, pl 8.2 6.5 - 8.5 g/dL [facility] Comment:Testing performed by : [address] [address] Albumin 3.9 3.5 - 5.0 g/dL [facility] Comment:Testing performed by : [address] [address] Alk phos 95 40 - 130 Units/L [facility] Comment:Testing performed by : [address] [address] ALT 24 7 - 45 Units/L [facility] Comment: HEMOLYZED: Hemolysis interferes with the above test. Testing performed by: [address] [address] AST 26 10 - 45 Units/L NILSA RODRIGES Comment: HEMOLYZED: Hemolysis interferes with the above test. Testing performed by: [facility], [address] [place] [address], [place]., [address] Blood 07/12/2024 11:5 3 AM BANANA GRADER 07/12/2024 11:58 AM BANANA GRADER Donna CUEVA LAB BLOOD ORDERABLES Final Re sult NILSA [address] [facility] Department [place] [address] * ECG 12 lead (07/12/2024 11:48 AM BANANA GRADER) Ventricular Rate EKG/Min 77 BPM [facility] Atrial Rate 77 BPM [facility] ID-Interval (MSEC) 154 ms [facility] QRS-Interval (MSEC) 66 ms [facility] QT-Interval (MSEC) 412 ms [facility] QTc 466 ms [facility] P Apex 72 degrees [facility] R Apex 6 degrees [facility] T Apex 62 degrees [facility] Diagnosis Normal sinus rhythm Normal ECG When compared with ECG of 21-APR-2024 10:35, No significant change was found Confirmed by DIAMOND GUTIERREZ M.D. ([id number]) on 07/13/2024 9:26:23 PM [facility] 07/12/2024 11:4 8 AM BANANA GRADER 07/13/2024 9:26 PM BANANA GRADER Donna CUEVA ECG ORDERABLES Final Result Performing Organization Address [facility]/ZIP Co de Phone Number [facility] [employer] [facility] * CT Cervical Spine WO Contrast (07/12/2024 10:38 AM BANANA GRADER) Anatomical Region Laterality Modality Spine N/A Computed Tomogra phy 07/12/2024 11:0 8 AM BANANA GRADER Narrative 07/12/2024 11:13 AM BANANA GRADER EXAM DESCRIPTION: CT CERVICAL SPINE WO CONTRAST [...] Wally Hernandez M.D. RB: AMADA Report ID: [id number] Reading Location: [id number] Procedure Note Wally Hernandez MD - 07/12/2024 [...] Wally Hernandez M.D. RB: AMADA Report ID: [id number] Reading Location: [place] [address] Donna CUEVA [facility] CT PROCEDURES Final Resul t * CT Facial Bones WO Contrast (07/12/2024 10:38 AM BANANA GRADER) Anatomical Region Laterality Modality Head and Neck N/A Computed Tomogra phy 07/12/2024 11:0 3 AM BANANA GRADER Narrative 07/12/2024 11:08 AM BANANA GRADER EXAM DESCRIPTION: CT FACIAL BONES WO CONTRAST [...] Wally Hernandez M.D. RB: AMADA Report ID: [id number] Reading Location: [place] [address] Procedure Note Wally Hernandez MD - 07/12/2024 [...] Wally Hernandez M.D. RB: AMADA Report ID: [id number] Reading Location: [id number] us Donna CUEVA IMG CT PROCEDURES Final Resul t * CT Head WO Contrast (07/12/2024 10:38 AM BANANA GRADER) Anatomical Region Laterality Modality Head and Neck N/A Computed Tomogra phy 07/12/2024 10:5 9 AM BANANA GRADER Narrative 07/12/2024 11:03 AM BANANA GRADER EXAM DESCRIPTION: CT HEAD WO CONTRAST REASON [...] Wally Hernandez M.D. RB: AMADA Report ID: [id number] Reading Location: [id number] Procedure Note Wally Hernandez MD - 07/12/2024 [...] Wally Hernandez M.D. RB: AMADA Report ID: [id number] Reading Location: [id number] Donna CUEVA IMG CT PROCEDURES Final Resul t * XR Shoulder Right 2 or More Views (07/12/2024 10:08 AM BANANA GRADER) Anatomical Region Laterality Modality Upper Extremities, Shoulder Right Comp uted Radiography 07/12/2024 10:1 4 AM BANANA GRADER Narrative 07/12/2024 10:15 AM BANANA GRADER EXAM DESCRIPTION: XR SHOULDER RIGHT 2 OR [...] Wally Hernandez M.D. RB: AMADA Report ID: [id number] Reading Location: [id number] Procedure Note Wlaly Hernandez MD - 07/12/2024 EXAM DESCRIPTION: XR [...] Wally Hernandez M.D. RB: AMADA Report ID: [id number] Reading Location: [id number] Julio Landeros DO IMG XR PROCEDURES Final Result * XR Shoulder Left 2 or More Views (07/12/2024 10:08 AM BANANA GRADER) Anatomical Region Laterality Modality Upper Extremities, Shoulder Left Comp uted Radiography 07/12/2024 10:1 3 AM BANANA GRADER Narrative 07/12/2024 10:14 AM BANANA GRADER EXAM DESCRIPTION: XR SHOULDER LEFT 2 OR [...] Wally Hernandez M.D. RB: AMADA Report ID: [id number] Reading Location: [id number] Procedure Note Wally Hernandez MD - 07/12/2024 [...] Wally Hernandez M.D. RB: AMADA Report ID: [id number] Reading Location: [id number] Julio Landeros DO IMG XR PROCEDURES Final Result * POCT glucose (07/12/2024 9:33 AM BANANA GRADER) Glucose, POC 164 70 - 199 mg/dL Comment:Testing performed by : [address] [address] Glucose comment 1 Use This Result NILSA Comment:Testing performed by : [address] [address] Blood 07/12/2024 9:33 AM BANANA GRADER 07/12/2024 9:33 AM BANANA GRADER Not[employer] Unknown LAB POCT ORDERABLES - DEVICE F inal Result NILSA [address] [facility] Department of Laboratories [place], [place] [id number] * Lipid panel (05/16/2024 10:14 AM BANANA GRADER) Cholesterol 160 30 - 199 mg/dL Comment: [...] NILSA DIAS Blood 05/16/2024 10:1 4 AM BANANA GRADER 05/16/2024 10:50 AM BANANA GRADER Narrative NILSA LARISSA - 05/16/2024 11:23 AM BANANA GRADER These lab test should be done fasting. This means do not eat or drink for at least 12 hours prior to getting your blood drawn. us Smith Gibbs MD LAB BLOOD ORDERABLES Final R esult NILSA [facility] [address] [facility]. Department [place] [address] * Colonoscopy (03/01/2024 8:49 AM CDT) Anatomical Region Laterality Modality Other Narrative Procedure Note Jaya Grier MD - 03/01/2024 8:49 AM CDT [facility] GI ENDOSCOPY Patient Name: Sixto Chakraborty Procedure Date: 03/01/2024 8:49 AM Date of : 1950 Admit Type: Outpatient Age: 73 Gender: Female Attending MD: Jaya Grier M.D. Room: [facility] ENDOSCOPY ROOM 06 Note Status: [...] The scope was passed under direct vision.The [id number] colonoscope was introduced through theanus and advanced [...] On: 03/01/2024 8:49 AM Recognized by the [employer] for promoting quality [...] taking vitamin-D. History of end-stage renal disease. Representative Government Relations/Model: ZEFR A (S/N [id number]) CLINICAL INFORMATION: Current height: 61 inches Maximum [...] Rafaela Paulino M.D. TW: TW Report ID: [id number] Reading Location: [id number] Procedure Note Rafaela Paulino MD - 01/22/2024 EXAM DESCRIPTION: DEXA AXIAL SKELETON BONE DENSITY 1 OR MORE SITES REASON FOR STUDY: 73 y/o year old F with given history of: Post menopausal status. History of taking vitamin-D. History of end-stagerenal disease. Representative Government Relations/Model: HoloXM Radio A (S/N [id number]) CLINICAL INFORMATION: Current height: 61 inches Maximum [...] see below follow up recommendations. Medical evaluation forssan [facility] healthcare corporationary causes of low bone mineral density may [...] Rafaela Paulino M.D. TW: TW Report ID: [id number] Reading Location: [id number] us Cherelle Corcoran MD IMG DXA PROCEDURE [...] age 40, based on guidelines of the [employer] (ACR Practice Parameter for the Performance of Screening and Diagnostic Mammography) and [employer]. For women [...] - GENERAL FREDDY HALEY Final Result NILSA [address] Department [place] [address] * (ABNORMAL) Albumin Creatinine Ratio, Urine (10/10/2022 11:39 AM CDT) Albumin Ur 3,240.2 mg/L NILSA Comment: Interpretive Data No reference range established. Current interpretive data was last revised 2018. Testing performed by: [address] [address] Creatinine Ur 74.8 mg/dL NILSA Comment: Interpretive Data No reference range established. Current interpretive data was last revised 2018. Testing performed by: [facility], [address] [place] [address]., [address] Albumin Creatinine Ratio, Ur 4,332(H) 1 - 29 mg/g NILSA Comment:Testing performed by : [facility], [address] [place] [address]., [address] Urine 10/10/2022 11:3 9 AM CDT 10/10/2022 1:45 PM CDT us Markie Ryan MD LAB URINE ORDERABLES Final Re sult Performing Organization Address City/State/[facility] Co de Phone Number NILSA [address] [facility] [place] [address] from Last 3 Months or Most Recently Relevant to Health Maintenance Insurance MEDICARE MEDICARE IDID MEDICARE [facility] MEDICARE IDID Advance Directives For more information, please contact: [phone] Documents on File Type Date Recorded Patient Senior Director Creative Services Expl anation ADVANCE DIRECTIVE 07/15/2024 7:58 AM Power of Automation Technician-Medical ADVANCE DIRECTIVE 02/02/2024 12:34 PM Erik r of Automation Technician-Medical * Full Code (Latest Code Status on [...] Gayle Daughter Health Care Agent Care Teams Library Science Professor Relationship Specialty Start Date End Date Cherelle Corcoran MD PCP - General Family Medicine 08/30/19 Mark Queen MD Consulting Physician Infectious Diseases 01/10/20 Rudolph Welch MD [address] [place] [address] Consulting Physician Infectious Diseases 12/05/22 Markie Ryan MD [address] [place] [address] Consulting Physician Nephrology 12/05/22 [place] [id number] [address] Consulting Physician Nephrology 10/22/23 Jaya Grier MD [address] [place] [address] Consulting Physician Gastroenterology 02/01/24 Edgardo Kauffman MD [address] [place] [address] Surgeon Vascular Surgery 07/15/24
--- OUTSIDE RECORDS SUMMARY | 2024-09-07 13:51 | XMS_ITS | Continuity of Care Document ---
Author Organization [facility] Address [address] [facility] [address] [place] [address] Phone Care Team Providers Care Wireless Communications Engineer Name Role Phone Luis OD, Alvarado Unavailable Unavailable Advance Directives Directive Yes / No Effective Date File Name No Information Encounters Encounter Description Practice Location Reason(s) For Visit Diagnoses Date Provider Providers Copied on Encounter [facility], [address], [place], [place], [id number], [place] tel:[phone] [facility] No Information May-2 0-200 5 Luis OD Alvarado. [address] [facility] [address] , [address], [place], [address], [place]. tel:[phone] Family History Family Member Type Diagnosis Age At Onset No Information Payers Payer name Insurance type Covered alliance party ID Authoriza tion(s) Medicaid [facility] [id number] Social History Type Description Quantity Date Captured [...]
--- OUTSIDE RECORDS SUMMARY | 2024-09-07 13:51 | XMS_ITS | Encounter Summary ---
Author Organization [facility] Healthcare Address [address] [place] [address] Care Team Providers Care Certified Professional Ergonomist Name Role Phone Cherelle Corcoran MD Primary Care Pro vider Mark Queen MD Unavailable [phone] Xenia Padilla LPN Unavailable Sarahy Schmidt FARROWING MANAGER Unavailable Brandie Callejas MA Unavailable Unav ailable Xenia Padilla LPN Unavailable [phone] Samples, Melania Joel RN Unavailable Anam Costa LCSW Unavailable Unavailabl e Samples, Melania Joel RN Unavailable Rudolph Welch MD Unavailable Markie Ryan MD Unavailable Nadege Ramírez RN Unavailable Dulce Vega RN Unavailable Jimbo Strauss MD Unavailable [phone] Jaya Grier MD Unavailable Edgardo Kauffman MD Unavailable Encounter Details Date Type Department Care Team (Late st Contact Info) Description 12/26/2019 Telephone [facility] Nutrition and Diabetic Education 1 [facility] Room [address] [address] Anastasia Leblanc, RN Social History Tobacco Use Types Packs/Day Years Used Date Smoking Tobacco: Never Smokeless Tobacco: Never Alcohol Use Standard Drinks/Week Comments Not Currently 0 (1 standard drink = 0.6 oz pur e alcohol) PHQ-2 Answer Date Recorded PHQ-2 Score 0 08/30/2019 Comments No Sex and Gender Information Value Date Recorded Sex Assigned at Not on file Legal Sex Female 9:03 AM GLOBAL ANALYTICS HEAD Gender Identity Female 02/08/2020 6:39 PM CDT Sexual Orientation Not on file documented as of this encounter Plan of Treatment Upcoming Encounters Date Type Department Care Team (Latest Contact Info) Description 09/13/2024 8:00 AM CDT Hospital Encounter [facility] [address] [place] [address] Jaya Grier MD [facility] [address] [place] [address] 09/13/2024 8:00 AM CDT - 09/13/2024 8:30 AM CDT Surgery [facility] [address] [place] [address] Jaya Grier MD [facility] [address] [place] [address] ESOPHAGOGASTRODUODENOSCOPY Scheduled Procedures Name Priority Associated Diagnoses Date/Ti ca ESOPHAGOGASTRODUODENOSCOPY Ulcer of esophagus without bleeding 09/13/2024 8:00 AM CDT COLONOSCOPY Iron deficiency anemia due to chronic blood loss documented as of this encounter Visit Diagnoses Not on filedocumented in this encounter Additional Health Concerns Infection Onset Date Last Indicated Resolved Time MRSA 01/06/2020 01/06/2020 02/06/2021 5:00 AM CDT COVID: Suspected 12/10/2020 12/10/2020 12/24/2020 3:05 AM CDT COVID19 08/13/2021 08/13/2021 08/24/2021 3:05 AM GLOBAL ANALYTICS HEAD COVID: Recovered Comment:Added based on recent COVID infection. 08/24/2021 08/26/2021 12/22/2021 3:05 AM C DT COVID: Suspected Comment:11/15/2021 pt is covid recovered 11/15/2021 11/15/2021 11/15/2021 3:32 PM C DT COVID: Suspected 11/15/2021 11/16/2021 11/16/2021 1:45 AM CDT Human metapneumovirus, conta ct + droplet 11/16/2021 11/16/2021 11/30/2021 3:05 AM C DT COVID: Suspected 05/08/2022 05/08/2022 05/08/2022 4:26 PM GLOBAL ANALYTICS HEAD COVID: Suspected 06/19/2022 06/19/2022 06/19/2022 12:37 PM GLOBAL ANALYTICS HEAD COVID: Suspected 08/01/2022 08/01/2022 08/01/2022 2:28 PM GLOBAL ANALYTICS HEAD COVID: Suspected 10/02/2022 10/02/2022 10/02/2022 8:14 PM CDT MRSA Comment:Toe 11/08/22, 12/12/22 11/08/2022 12/12/2022 06/10/2023 3:05 AM GLOBAL ANALYTICS HEAD COVID: Suspected 12/08/2022 12/08/2022 12/08/2022 8:17 PM CDT COVID: Suspected 07/27/2023 07/27/2023 07/28/2023 12:57 AM GLOBAL ANALYTICS HEAD COVID: Suspected 10/29/2023 10/30/2023 10/30/2023 10:59 AM CDT 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 12/19/2023 12/19/2023 3:58 PM CDT 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 12/29/2023 06/26/2024 3:05 AM GLOBAL ANALYTICS HEAD COVID: Suspected 04/19/2024 04/19/2024 04/20/2024 12:44 AM CDT COVID: Suspected 07/12/2024 07/12/2024 07/12/2024 12:39 PM GLOBAL ANALYTICS HEAD COVID: Suspected 07/31/2024 07/31/2024 07/31/2024 2:06 PM GLOBAL ANALYTICS HEAD documented as of this encounter Care Teams Certified Professional Ergonomist Relationship Specialty Start Date End Date Cherelle Corcoran MD PCP - General Family Medicine 08/30/19 Mark Queen MD Consulting Physician Infectious Diseases 01/10/20 Xenia Padilla LPN Project Safety Manager 09/19/21 09/19/21 Sarahy Schmidt LPN [address] [place] [address] [address] [place] [address] ACO Care Corporate Communications Associate 11/27/21 12/25/21 Brandie Callejas MA Patient Radial Arm Saw Operator 06/20/22 06/22/22 Xenia Padilla LPN [address] [place] [address] [address] [place] [address] Project Safety Manager 06/24/22 06/24/22 Samples, Melania Joel RN [address] [place] [address] [address] [place] [address] Project Safety Manager 07/22/22 08/21/22 Anam Costa LCSW [address] [place] [address] [address] [place] [address] Chief Dispatcher 08/08/22 02/18/23 Samples, Melania Joel RN [address] [place] [address] [address] [place] [address] Project Safety Manager 08/22/22 12/07/22 Rudolph Welch MD [address] [facility] [address] [place] [address] Consulting Physician Infectious Diseases 12/05/22 Markie Ryan MD [address] [facility] [address] [place] [address] Consulting Physician Nephrology 12/05/22 Nadege Ramírez RN [address] [place] [address] [address] [place] [address] Project Safety Manager 01/20/23 02/23/23 Dulce Vega RN [address] [place] [address] [address] [place] [address] Project Safety Manager 10/07/23 05/03/[address] [place] [address] [facility] [address] [place] [address] Consulting Physician Nephrology 10/22/23 Jaya Grier MD [address] [facility] [address] [place] [address] Consulting Physician Gastroenterology 02/01/24 Edgardo Kauffman MD [address] [facility] [address] [place] [address] Surgeon Vascular Surgery 07/15/24 documented as of this encounter
--- OUTSIDE RECORDS SUMMARY | 2024-09-07 13:51 | XMS_ITS | Encounter Summary ---
Author Organization [facility] Healthcare Address [address] [place] [address] Care Team Providers Care Analytics Associate Name Role Phone Cherelle Corcoran MD Primary Care Pro vider Mark Queen MD Unavailable [phone] Rudolph Welch MD Unavailable [phone] Markie Ryan MD Unavailable Jimbo Strauss MD Unavailable [phone] Jaya Grier MD Unavailable Edgardo Kauffman MD Unavailable Reason for Visit * Reason Onset Date Comments Weakness - Generalized 06/27/2024 Encounter Details Date Type Department Care Team (Late st Contact Info) Description 06/27/2024 Nurse Triage [facility] [place] [address] [facility] [address] [place] [address] Cherelle Corcoran MD [facility] [address] [place] [address] Social History Tobacco Use Types [...] doctor or pharmacy Often 01/20/2024 [facility] Utilities Answer Date Recorded In the [...] in a penitentiary (including now)? No 10/30/2023 PHQ-9 Answer Date [...] any time in the past 12 [facility], were you homeless or [...] file Legal Sex Female 9:03 AM AIRPLANE COVERER Gender Identity Female 02/08/2020 6:39 PM CDT Sexual Orientation Not on file documented as of this encounter Miscellaneous Notes * Telephone Encounter - Cherelle Corcoran MD - 06/28/2024 10:05 AM CST Thank you LANE COVERER * Telephone Encounter - Sandy Mota MA - 06/28/2024 9:47 AM CST Spoke with pt daughter and she stated that the ambulance took her to the nearest ER which was [facility]. She is currently admitted into [facility] to rule out stroke. They are doing a MRI today per pt daughter. She is still in the ER as they do not have a bed for her just yet upstairs in the hospital. I advised Ursula to keep us updated with any big changes via Qwaya if she needs to. LANE COVERER * Telephone Encounter - Cherelle Corcoran MD - 06/28/2024 9:13 AM CST Acknowledged, it does not look like she went to [facility]. Can you follow up to see if she went to [place] and what status is? thanks LANE COVERER * Telephone Encounter - Ruby Chapman RN [...] the triager Protocols used: Weakness (Generalized) and [id number] LANE COVERER * Telephone Encounter - Ruby Chapman RN - 06/27/2024 4:05 PM CST Regarding: explosive diarrhea, not moving like her hands are cramped up, barely talking to her and she's not e ----- Message from Berenice Hobbs sent at 06/27/2024 4:02 PM AIRPLANE COVERER ----- Symptom Based Call Chief Complaint(s): Areli [...] appointment not scheduled? Requesting advice from clinical seafood team member. Additional Comments: Caller stated the patient was suppose to go to dialysis today on 06/27/24 but didn't due to the weather, please advise. Does message need to be routed? Yes-Action Needed LANE COVERER documented in this encounter Plan of Treatment Upcoming Encounters Date Type Department Care Team (Latest Contact Info) Description 09/13/2024 8:00 AM CDT Hospital Encounter [facility] [address] [place] [address] Jaya Grier MD [address] [facility] [address] [place] [address] 09/13/2024 8:00 AM CDT - 09/13/2024 8:30 AM CDT Surgery [facility] [address] [place] [address] Jaya Grier MD [address] [facility] [address] [place] [address] ESOPHAGOGASTRODUODENOSCOPY Scheduled Procedures Name Priority Associated Diagnoses Date/Ti wv ESOPHAGOGASTRODUODENOSCOPY Ulcer of esophagus without bleeding 09/13/2024 8:00 AM CDT COLONOSCOPY Iron deficiency anemia due to chronic blood loss documented as of this encounter Visit Diagnoses Not on filedocumented in this encounter Additional Health Concerns Infection Onset Date Last Indicated Resolved Time COVID: Suspected 07/12/2024 07/12/2024 07/12/2024 12:39 PM AIRPLANE COVERER COVID: Suspected 07/31/2024 07/31/2024 07/31/2024 2:06 PM AIRPLANE COVERER documented as of this encounter Care Teams Analytics Associate Relationship Specialty Start Date End Date Cherelle Corcoran MD PCP - General Family Medicine 08/30/19 Mark Queen MD Consulting Physician Infectious Diseases 01/10/20 Rudolph Welch MD [address] [facility] [address] [place] [address] Consulting Physician Infectious Diseases 12/05/22 Markie Ryan MD [address] [facility] [address] [place] [address] Consulting Physician Nephrology 12/05/22 [place] [address] [address] Consulting Physician Nephrology 10/22/23 Jaya Grier MD [address] [facility] [address] [place] [address] Consulting Physician Gastroenterology 02/01/24 Edgardo Kauffman MD [address] [facility] [address] [place] [address] Surgeon Vascular Surgery 07/15/24 documented as of this encounter
--- OUTSIDE RECORDS SUMMARY | 2024-09-07 13:51 | XMS_ITS ---
Author Organization [facility] [employer] [facility] Care Team Providers Care Cooling Pan Tender Name Role Phone Demetri Roy Unavailable Unavailable Allergies and adverse reactions No Known Allergies Care Team Name Role Address Phone Organization Dates Demetri Roy PCP [address] [place], [place], [facility] [place] States (Office): : : [facility] 08/15/2021 - 08/22/2021 Mental Status Section Date Assessment Total Score Description 08/22/2021 BIMS 13 cognitively int act CAM 0 No delirium ind icated PHQ-9 12 moderate depres jannette 08/21/2021 BIMS 13 cognitively int act CAM 0 No delirium ind icated PHQ-9 12 moderate depres jannette Problems Problem # Description Date of onset Resolved Date Code CodeSystem Concern Status 1 ALZHEIMER'S DISEASE 2 08/15/[address] completed 2 GASTRO-ESOPHAGEAL REFLUX DISEASE WITHOUT ESOPHAGITIS 2 08/15/[address] completed 3 IRON DEFICIENCY ANEMIA 2 08/15/[address] completed 4 OTHER HYPERLIPIDEMIA 2 08/15/[address] completed 5 SCHIZOAFFECTIVE DISORDER, BIPOLAR TYPE [address] active 6 SCHIZOAFFECTIVE DISORDER, BIPOLAR TYPE 2 08/15/[address] completed 7 ALZHEIMER'S DISEASE [address] active 8 ALZHEIMER'S DISEASE, UNSPECIFIED [address] active 9 ANEMIA, UNSPECIFIED [address] active 10 COVID-[address] active 11 ESSENTIAL (PRIMARY) HYPERTENSION [address] active 12 GASTRO-ESOPHAGEAL REFLUX DISEASE WITHOUT ESOPHAGITIS [address] active 13 IRON DEFICIENCY ANEMIA [address] active 14 OTHER HYPERLIPIDEMIA [address] active [address] active 16 TYPE 2 DIABETES MELLITUS WITH DIABETIC NEUROPATHY, UNSPECIFIED [address] active Reason for Referral No Reasons for Referral Entered Social History Social History Observation Description Start Date End Date Code Code System Current Smoking Status Tobacco smoking consumption unknown 517002219 SNOMED CT Sex Assigned At Female 1950 76466-7 [facility] Vital Signs Code Code System Vitals Name Values and Units Timing Information 8462-4 [facility] Blood Pressure-Diastolic Value=68 Un its=mmHg 08/22/2021 8480-6 [facility] Blood Pressure-Systolic Vhvdr=262 Un its=mmHg 08/22/2021 9279-1 [facility] Respiratory Rate Value=20.0 Units=/m in 08/22/2021 8310-5 [facility] Body Temperature Value=97.8 Units= F 08/22/2021 8867-4 [facility] Heart rate Value=86.0 Units=/min 08/2021 2339-0 [facility] Blood Sugar Nyvni=943.0 Units=mg/dL 08/22/2021 43029-4 [facility] Pain Level Value=0.0 08/22/2021 31187-7 [facility] O2 % BldC Oximetry Value=96.0 Units= % 08/21/2021 85103-0 INC Weight Goqdj=580.1 Units=Lbs
--- OUTSIDE RECORDS SUMMARY | 2024-09-07 13:51 | XMS_ITS | CONTINUITY OF CARE DOCUMENT ---
Author Name flash vidales Address Unknown Organization [facility] Address [address] [facility] [address] [place] [address] Phone [phone] Care Team Providers Care Generator Switchboard Operator Name Role Phone Jared YOUNG, Meghann Unavailable LONDON YOUNG, DUANE Unavailable LONDON YOUNG, DUANE Unavailable [phone] PROBLEMS Condition Status Date Provider Notes Parkinson's disease active Audie Blas anemia active Audie Blas Schizophrenia active Audie Blas Diabetes mellitus, Type II active Audie woods ESRD - On Hemodialysis active Audie Blas HTN essential active Audie Blas Hyperlipidemia active Audie Blas Diabetic neuropathy active Audie Blas Depression active Audie Blas Dementia active Audie Blas CHF active Audie Blas arthritis active Audie Evangelistaty Cardiology examination active Audie Blas ENCOUNTERS Date Type Provider Location Encounter Diag nosis 08/15 - 08/15 In-person encounter Office Visit Meghann Coleman MD [facility] 03/07 - 07/06 In-person encounter Office Visit Meghann Coleman MD [facility] 11/29 - 11/30 In-person encounter Office Visit Meghann Coleman MD [facility] Cardiology examinationarthritisCHFDementiaDepressionDiabetic neuropathyHyperlipidemiaHTN essentialESRD - On HemodialysisDiabetes mellitus, Type IISchizophreniaanemiaParkinson's disease VITAL SIGNS Date Observation Value Provider Body Mass Index (Ratio) 25.60 kg/m2 Kyler Coleman MD blood pressure, diastolic 76 mm[Hg] Madisyn johnson [facility] blood pressure, systolic 114 mm[Hg] Sheree chatterjee [facility] oxygen saturation, oximetry 96 % Brandie [facility] pulse rate 75 /min Brandie [facility] blood pressure, cuff size regular Madisyn johnson [facility] weight E&M 140 [lb_av] Brandie [facility] height E&M 62 [in_i] [facility] Body Mass Index (Ratio) 25.60 kg/m2 Kyler Coleman MD blood pressure, diastolic 57 mm[Hg] [facility] blood pressure, systolic 119 mm[Hg] rusty [facility] oxygen saturation, oximetry 98 % [facility] pulse rate 56 /min [facility] respiratory rate E&M 12 /min [facility] weight E&M 140 [lb_av] [facility], cuff size regular Anand zheng [place] height E&M 62 [in_i] [facility] Body Mass Index (Ratio) 24.87 kg/m2 Idel la Sommer blood pressure, diastolic 91 mm[Hg] Li nkLogic blood pressure, systolic 192 mm[Hg] Ana kLogic blood pressure, cuff size regular Ja rret blood pressure, diastolic 91 mm[Hg] Ja rret blood pressure, systolic 192 mm[Hg] Jar ret pulse rate 69 /min height E&M 62 [in_i] Nolan y oxygen saturation, oximetry 98 % weight E&M 136 [lb_av] respiratory rate E&M 16 /min ALLERGIES No Known Drug Allergies HISTORY OF MEDICATION USE Medication Status Instructions Dates Provider Indications Com ments Coreg 3.125 mg tablet active TAKE 1 TABLET BY MOUTH TWICE DAILY 5 Shiloh Barrientos NP Procardia XL 60 mg tablet extended release 24hr active Take 1 tablet by mouth once a day 6 Meghann Coleman MD aspirin 81 mg capsule active Take 1 capsule by mouth once a day Cherelle Wilson benztropine 2 mg tablet active Take 1 tablet by mouth once a day Cherelle Wilson Risperdal 2 mg tablet active Take 1 tablet by mouth once a day Cherelle Wilson Coreg 6.25 mg tablet completed TAKE 1 TABLET BY MOUTH TWICE DAILY - 5 Shiloh Barrientos NP hydralazine 25 mg tablet active Take 1 tablet by mouth twice a day Cherelle Wilson amlodipine 10 mg tablet completed - 6 Cherelle Wilson atorvastatin 20 mg tablet completed - 6 Cherelle Wilson metoprolol tartrate 25 mg tablet completed - 6 Cherelle Wilson BD Arlyn 2nd Gen Pen Needle 32 gauge x 5/32 needle active USE DIRECTED FOUR TIMES DAILY Easy Touch 32 gauge x 5/32 needle active USE DIRECTED FOUR TIMES DAILY Nolan BD Ultra-Fine Arlyn Pen Needle 32 gauge x 5/32 needle active USE DIRECTED FOUR TIMES DAILY Nolan FeroSul 325 mg (65 mg iron) tablet active TAKE 1 TABLET BY MOUTH DAILY WITH BREAKFAST Lantus Solostar U-100 Insulin 100 unit/mL (3 mL) insulin pen active Nolan acetaminophen 500 mg tablet active Take as needed Cherelle Wilson atorvastatin 40 mg tablet active TAKE 1 TABLET BY MOUTH EVERY DAY Nolan fluticasone propionate 50 mcg/actuation spray,suspension active Use 1 spray(s) in each nostril twice daily SOCIAL HISTORY Date Observation Value Provider smoking status Never smoker Meghann amaya MD number of grandchildren Meghann Coleman MD Shiloh Nalluri FEEDER OPERATOR smoking status Never smoker Shiloh Florencialu ri FEEDER OPERATOR smoking status Never smoker INSURANCE PROVIDERS Payer name Policy type / Coverage type Rena red alliance party ID [facility] Medicaid 0 [id number] [place] B Medicare [id number] ADVANCE DIRECTIVES Name Date DISCUSSED - NO DECISION MADE TREATMENT PLAN Date Name Performer Cardiology:takes yady apentin no sx of claudication; TEO showed nml flow but some evidence of atherosclerosis. Meghann Coleman MD Cardiology: A 1c 8.2 Her updated medication list for this problem includes: Lantus Solostar U-100 Insulin 100 Unit/ml (3 Ml) Insulin Pen (Insulin glargine) Meghann Coleman MD Cardiology:BP someti mes runs low on dialysis days. Advised to check BP on day of dialysis. If day of dialysis BP systolic is <110; hold BP pills for the day. BP today: 114/76 P rior BP: 119/57 (03/07/2024) Her updated medication list for this problem includes: Procardia Xl 60 Mg Tablet Extended Release 24hr (Nifedipine) ..... Take 1 tablet by mouth once a day Coreg 3.125 Mg Tablet (Carvedilol) ..... Take 1 tablet by mouth twice daily Hydralazine 25 Mg Tablet (Hydralazine) ..... Take 1 tablet by mouth twice a day This visit has been a part of the consistent, comprehensive, and ongoing management of the chronic medical condition(s) listed above for the patient. Meghann Coleman MD Cardiology: Bro ppears compensated, continue current medications N o SOB E F 60-65% Meghann Coleman MD Cardiology:continue statin Her updated medication list for this problem includes: Atorvastatin 40 Mg Tablet (Atorvastatin) ..... Take 1 tablet by mouth every day This visit has been a part of the consistent, comprehensive, and ongoing management of the chronic medical condition(s) listed above for the patient. Meghann Coleman MD Cardiology: p er recruitment internship Dr. espinoza gusman home dialysis every other day now. Meghann Coleman MD Cardiology Shiloh Barrientos NP Cardiology: T he following medications were removed from the medication list: Atorvastatin 20 Mg Tablet (Atorvastatin) Her updated medication list for this problem includes: Atorvastatin 40 Mg Tablet (Atorvastatin) ..... Take 1 tablet by mouth every day Shiloh Barrientos NP Cardiology: B P today: 119/57 P rior BP: 192/91 (11/30/2023) Decresed coreg dose to 3.125 due to bradycardia, HR 55 Shiloh Barrientos NP Cardiology: p er recruitment internship Dr. espinoza Barrientos NP Cardiology:A1c 8.2 Her updated medication list for this problem includes: Lantus Solostar U-100 Insulin 100 Unit/ml (3 Ml) Insulin Pen (Insulin glargine) Shiloh Barrientos NP Cardiology:Hgb 9.5 Shiloh Florencialuri FEEDER OPERATOR Cardiology: A ppears compensated, continue current medications [...] mouth every day Meghann Coleman MD Cardiology:per recruitment internship Dr. espinoza Coleman MD Cardiology:Appears c ompensated, continue current medications Meghann Coleman MD Date Name Arterial Duplex Bi-L ower EX HISTORY OF PROCEDURES Procedure Date Procedure Name Provider Procedure Notes S tatus Complex e/m visit add on Meghann Coleman MD completed Complex e/m visit add on Isidro Hahn MD completed EKG Meghann Coleman MD complet ed
--- OUTSIDE RECORDS SUMMARY | 2024-09-07 13:51 | XMS_ITS | Clinical Summary ---
Author Organization [facility] Address [address], [address] [address] Phone Care Team Providers Care Lead Bi Developer Name Role Phone Cherelle Corcoran MD [...] - 144 mmol/L 03/11/2019 11:10 AM CDT [facility] POTASSIUM 4.8 3.5 - 5.1 mmol/L 03/11/2019 11:10 AM CDT [facility] CHLORIDE 96(L) 100 - 110 mmol/L 03/11/2019 11:10 AM CDT [facility] CO2, VENOUS 28 22 - 32 mmol/L 03/11/2019 11:10 AM CDT [facility] ANION GAP 17.8 8.0 - 20.0 mmol/L 03/11/2019 11:10 AM CDT [facility] GLUCOSE 216(H) 70 - 99 mg/dL 03/11/2019 11:10 AM CDT [facility] BUN 22 8 - 23 mg/dL 03/11/2019 11:10 AM CDT [facility] CREATININE, BLOOD 0.66 0.60 - 1.10 mg/dL 03/11/2019 11:[address] [facility] BUN/CREATININE RATIO 33(H) 12 - 20 ratio 03/11/2019 11:[address] [facility] TOTAL PROTEIN 8.4(H) 6.0 - 8.3 g/dL 03/11/2019 11:[address] [facility] ALBUMIN 4.3 3.5 - 5.2 g/dL 03/11/2019 11:[address] [facility] Comment: The colormetric methods used for the determination of Albumin may lead to falsely elevated test results in patients suffering from renal failure or insufficiency due to interference with other proteins. A/G RATIO 1.0 1.0 - 2.0 03/11/2019 11:[address] [facility] CALCIUM 10.4(H) 8.9 - 10.3 mg/dL 03/11/2019 11:[address] [facility] T BILI 0.3 <=1.2 mg/dL 03/11/2019 11:[address] [facility] SGOT (AST) 19 <=32 U/L 03/11/2019 11:[address] [facility] Comment: Hemolysis present: results may be falsely elevated. SGPT (ALT) 14 <=33 U/L 03/11/2019 11:[address] [facility] ALKALINE PHOSPHATASE 123(H) 35 - 105 U/L 03/11/2019 11:[address] [facility] GFR, EST. NONAFRICAN >60 >=60 03/11/2019 11:[address] [facility] GFR, EST. >60 >=60 019 11:[address] [facility] Comment: Creatinine Clearance is the preferred criteria for selecting drug dose adjustments in renally impaired patients. The GFR is provided as additional pertinent clinical information. GFR is reported in mL/min/1.73 sq m. Blood specimen (specimen) Venous Catheter (IV) / Unknown 03/11/2019 10:23 AM CDT 03/11/2019 10:46 AM CDT us Ronald Haro MD CHEMISTRY ORDERABLES Final Result Performing Organization Address City/[facility]/ZIP Co de Phone Number [facility] [address] [place] [address] * (ABNORMAL) POCT GLYCOSYLATED HEMOGLOBIN (01/20/2019 9:44 AM CDT) HGB-A1C 15(A) 4 - 6 Comment:above 15 01/20/2019 9:44 AM CDT us Choco Morris PAC POINT OF CARE TESTING (M ANUAL) Final Result * Stool, Occult Blood, Diagnostic (03/30/2017 2:09 PM CDT) OCCULT BLOOD DIAG, GI BLEED Negative Negative 03/30/2017 2:29 PM CDT [facility] Stool specimen (specimen) STOOL SPECIMEN / Unknown Non-Phlebotomy Collection / Unknown 03/30/2017 2:09 PM CDT 03/30/2017 2:23 PM CDT us Anali Ortiz PAC BODY FLUIDS & STOOLS ORDERAB LES Final Result Performing Organization Address City/[facility]/ZIP Co de Phone Number [facility] [address] [place] [address] * CHERYL SCREENING BILATERAL DIGITAL W CAD (11/08/2015) Anatomical Region Laterality Modality breast Bilateral Other us Historical Provider IMG MAMMO ORDERABLES Blessing l Result from Last 3 Months or Most Recently Relevant to Health Maintenance Insurance MEDICARE C [employer] [place] [address] Advance Directives * Full Code (Latest Code Status on File) Date Activated Date Inactivated Comments 04/07/2017 7:30 AM 03/11/2019 10:12 AM * Full Code Date Activated Date Inactivated Comments 03/30/2017 6:32 PM 04/03/2017 5:43 PM CPR-Full Tr eatment: FULL ARREST: Attempt Resuscitation/CPR wit intubation and mechanical ventilation. PRE-ARREST: Use entire range of life support measures to stabilize the patient. Care Teams Lead Bi Developer Relationship Specialty Start Date End Date Cherelle Corcoran MD [address] [place] [id number] PCP - General Family Medicine 02/12/24 Sim López MD [address] [place] [id number] Consulting Physician Oncology 02/12/24
[2024-09-07 14:19] LABS: Influenza A QL RT-PCR Negative (Negative); Influenza B QL RT-PCR Negative (Negative); RSV RNA, RT-PCR Negative (Negative); SARS-CoV-2 RNA PCR Negative (Negative)
[2024-09-07 14:24] LABS: Add Urine Microscopic? YES; Appearance Urine Clear (Clear); Bacteria Urine None Seen /hpf; Bilirubin Urine Negative (Negative); Blood Urine Negative (Negative); Color Urine Yellow (Yellow); Glucose Urine UA 2+ mg/dL (Negative); Ketones Urine Negative (Negative); Leukocyte Esterase Ur Trace LEU/UL (Negative); Need Manual Microscopic Reviewed; Nitrate Urine Negative (Negative); Non Pathogenic Casts 0-2; Protein Urine 2+ mg/dL (Negative); RBC Urine 0-2 /hpf (0-2); Specific Grav Ur 1.008 (1.001-1.035); Squamous Epithelial Cell Urine Occasional /hpf (Few); Urobilinogen Urine 0.2 mg/dL (<2.0); pH Urine 7.5 (5.0-9.0)
[2024-09-07 14:50] LABS: Alanine Aminotransferase 15 U/L (6-35); Albumin Level 4.2 g/dL (3.5-5.1); Alkaline Phosphatase 132 U/L (38-126); Anion Gap 12 mmol/L (4-12); Aspartate Amino Transferase 18 U/L (14-36); Bilirubin,Total 0.5 mg/dL (0.2-1.3); Blood Urea Nitrogen 36 mg/dL (7-17); Calcium 9.5 mg/dL (8.4-10.2); Carbon Dioxide 29 mmol/L (22-30); Chloride 96 mmol/L (98-107); Estimated CRCL calculation 9 ml/min; Estimated Glomerular Filt Rate 11; Glucose 175 mg/dL (65-110); INR 0.9; Prothrombin Time 12.8 Seconds (11.1-14.7); Sodium 137 mmol/L (137-145)
[2024-09-07 14:51] LABS: Partial Thromboplastin Time 22.4 Seconds (22.3-36.8)
[2024-09-07 17:21] LABS: Basophils Percent Auto 0.3 % (0.2-1.2); Eosinophils Absolute Auto 0.2 K/mm3 (0-0.3); Eosinophils Percent Auto 1.9 % (0-4.4); Hemoglobin 9.6 g/dL (12.0-15.0); Immature Granulocyte Absolute 0.04 K/mm3 (0.00-0.031); Immature Granulocyte Percent A 0.5 % (0-0.5); Lymphocytes Absolute Auto 3.08 K/mm3 (0.9-3.2); Lymphocytes Percent Auto 34.8 % (18.3-44.2); Mean Corpuscular Hemoglobin 31.6 pg (26-34); Mean Corpuscular Volume 98.7 fl (80-100); Mean Platelet Volume 10.2 fl (7.4-10.4); Monocytes Absolute Auto 0.7 K/mm3 (0.1-0.6); Monocytes Percent Auto 7.6 % (2.6-8.5); Neutrophils Absolute Auto 4.9 K/mm3 (1.3-6.7); Neutrophils Percent Auto 54.9 % (45.5-73.1); Platelet Count Result 225 k/mm3 (150-375); Red Blood Count 3.04 M/mm3 (4.2-5.4); Red Cell Distribution Width 14.7 % (11.5-14.5); White Blood Count 8.9 K/mm3 (4.5-10.0)
== END 2024-09-07 17:45 | disposition home or self-care (01) ==
PROVIDERS: Emergency Provider Emergency Medicine; PCP Hospitalist
DX: R53.1 Weakness (principal); Z20.822 Contact with and (suspected) exposure to COVID-19; G20.A1 Parkinson's disease without dyskinesia, without mention of fluctuations; I50.9 Heart failure, unspecified; E11.22 Type 2 diabetes mellitus with diabetic chronic kidney disease; N18.4 Chronic kidney disease, stage 4 (severe); E11.40 Type 2 diabetes mellitus with diabetic neuropathy, unspecified; F03.90 Unspecified dementia, unspecified severity, without behavioral disturbance, psychotic disturbance, mood disturbance, and anxiety; F20.9 Schizophrenia, unspecified; Z86.16 Personal history of COVID-19; Z96.1 Presence of intraocular lens; Z98.49 Cataract extraction status, unspecified eye; Z89.411 Acquired absence of right great toe; Z79.4 Long term (current) use of insulin; Z79.899 Other long term (current) drug therapy; Z79.01 Long term (current) use of anticoagulants
CPT/HCPCS: 36415; 70450; 73030; 80053; 81001; 85025; 85610; 85730; 87086; 87637; 99284

== ENCOUNTER 2024-09-21 13:40 | Emergency (ER) | payer MEDICARE, MEDICAID, SELFPAY ==
[2024-09-21] VITALS (11 sets, daily range): BP systolic 145–198; BP diastolic 63–88; PULSE 69–74; RESP 12–16; TEMP 37.1; O2SAT 98–100
[2024-09-21 14:50] LABS: Basophils Percent Auto 0.4 % (0.2-1.2); Eosinophils Absolute Auto 0.1 K/mm3 (0-0.3); Eosinophils Percent Auto 0.6 % (0-4.4); Hematocrit 26.8 % (37.0-47.0); Hemoglobin 8.9 g/dL (12.0-15.0); Immature Granulocyte Absolute 0.05 K/mm3 (0.00-0.031); Immature Granulocyte Percent A 0.5 % (0-0.5); Lymphocytes Absolute Auto 1.88 K/mm3 (0.9-3.2); Lymphocytes Percent Auto 19.3 % (18.3-44.2); Mean Corpuscular HGB Conc 33.2 g/dl (32-36); Mean Corpuscular Volume 99.3 fl (80-100); Mean Platelet Volume 10.7 fl (7.4-10.4); Monocytes Absolute Auto 0.7 K/mm3 (0.1-0.6); Monocytes Percent Auto 6.7 % (2.6-8.5); Neutrophils Absolute Auto 7.1 K/mm3 (1.3-6.7); Neutrophils Percent Auto 72.5 % (45.5-73.1); Platelet Count Result 234 k/mm3 (150-375); Red Cell Distribution Width 14.8 % (11.5-14.5); White Blood Count 9.7 K/mm3 (4.5-10.0)
--- OUTSIDE RECORDS SUMMARY | 2024-09-21 14:56 | XMS_ITS | Continuity of Care Document ---
Author Organization [facility] Address [address] [facility] [address] [place] [address] Phone Care Team Providers Care Glove Sewer Name Role Phone Luis OD, Alvarado Unavailable Unavailable Advance Directives Directive Yes / No Effective Date File Name No Information Encounters Encounter Description Practice Location Reason(s) For Visit Diagnoses Date Provider Providers Copied on Encounter [facility], [address], [place], [place], [id number], [place] tel:[phone] SEC [facility] No Information May-2 0-200 5 Luis OD Alvarado. [address] [facility] , [address], [place], [address], [place]. tel:[phone] Family History Family Member Type Diagnosis Age At Onset No Information Payers Payer name Insurance type Covered republican ID Authoriza tion(s) Medicaid [facility] [id number] Social History Type Description Quantity Date Captured [...]
--- OUTSIDE RECORDS SUMMARY | 2024-09-21 14:56 | XMS_ITS | Clinical Summary ---
Author Organization [facility] Address [facility] [place] [address] Care Team Providers Care Assembler Erector Name Role Phone Cherelle Corcoran MD Primary Care Provider [phone] Social History Tobacco Use Types Packs/Day Years [...] Vaccine ( season) 2024 06/11/2021, 10/13/2020, 09/22/2020 Hemoglobin A1C 04/08/2024 10/08/2023, 11/20, 08/02/2022, Additional history exists PHQ-2 (Physician [place]) 06/22/2024 Mammogram Screening 01/21/2026 01/22/2024, 09/25/2022, 01/08/2021, Additional history exists Pneumococcal Vaccine: 65+ Years Completed 01/20/2019, 03/31/2017 Dexa Scan (General) Completed 01/22/2024, 01/22/2024, 01/08/2021 Hepatitis C Completed 01/30/2024, 06/2023, 12/21/2023 Meningococcal B Vaccine Aged Out No l onger eligible based on patient's age to complete this topic Meningococcal Vaccine Aged Out No khang frances eligible based on patient's age to complete this topic RSV Immunizations Under 20 Months Aged Out No longer eligible based on patient's age to complete this topic Insurance MEDICARE MEDICAID Care Teams Assembler Erector Relationship Specialty Start Date End Date Cherelle Corcoran MD [address] [place] [id number] PCP - General FAMILY PRACTICE 09/27/19
--- OUTSIDE RECORDS SUMMARY | 2024-09-21 14:56 | XMS_ITS | Encounter Summary ---
Author Organization [facility] Address [address] [place] [address] Phone Care Team Providers Care Research Scientist Name Role Phone Cherelle Corcoran MD Primary Care Pro vider QueenMark Perez MD Unavailable [phone] Brandie Callejas MA Unavailable Unav ailable Xenia Padilla LPN Unavailable [phone] Samples, Melania Joel RN Unavailable [phone] Anam Costa LCSW Unavailable Unavailabl e Samples, Melania Joel RN Unavailable Rudolph Welch MD Unavailable Markie Ryan MD Unavailable [phone] Nadege Ramírez RN Unavailable Dulce Vega RN Unavailable [phone] Jimob Strauss MD Unavailable [phone] Jaya Grier MD Unavailable Edgardo Kauffman MD Unavailable [phone] Encounter Details Date Type Department Care Team (Late st Contact Info) Description 12/30/2021 Telephone [facility] Endocrinology Metabolism and Lipid [address] [facility] [address] [facility] [address] [place] [address] [place] [address] Rachael Smith CMA Social History [...] on file Legal Sex Female 9:03 AM PHYSICAL GEOGRAPHER Gender Identity Female 02/08/2020 6:39 PM CDT Sexual Orientation Not on file documented as of this encounter Plan of Treatment Scheduled Procedures Name Priority Associated Diagnoses Date/Ti me COLONOSCOPY Iron deficiency anemia due to chronic blood loss documented as of this encounter Visit Diagnoses Not on filedocumented in this encounter Additional Health Concerns Infection Onset Date Last Indicated Resolved Time COVID: Suspected 05/08/2022 05/08/2022 05/08/2022 4:26 PM PHYSICAL GEOGRAPHER COVID: Suspected 06/19/2022 06/19/2022 06/19/2022 12:37 PM PHYSICAL GEOGRAPHER COVID: Suspected 08/01/2022 08/01/2022 08/01/2022 2:28 PM PHYSICAL GEOGRAPHER COVID: Suspected 10/02/2022 10/02/2022 10/02/2022 8:14 PM CDT MRSA Comment:Toe 11/08/22, 12/12/22 11/08/2022 12/12/2022 06/10/2023 3:05 AM PHYSICAL GEOGRAPHER COVID: Suspected 12/08/2022 12/08/2022 12/08/2022 8:17 PM CDT COVID: Suspected 07/27/2023 07/27/2023 07/28/2023 12:57 AM PHYSICAL GEOGRAPHER COVID: Suspected 10/29/2023 10/30/202310/30/2023 10:59 AM CDT 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 12/19/2023 12/19/2023 3:58 PM CDT 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 12/29/2023 06/26/2024 3:05 AM PHYSICAL GEOGRAPHER COVID: Suspected 04/19/2024 04/19/2024 04/20/2024 12:44 AM CDT COVID: Suspected 07/12/2024 07/12/2024 07/12/2024 12:39 PM PHYSICAL GEOGRAPHER COVID: Suspected 07/31/2024 07/31/2024 07/31/2024 2:06 PM PHYSICAL GEOGRAPHER documented as of this encounter Care Teams Research Scientist Relationship Specialty Start Date End Date Cherelle Corcoran MD PCP - General Family Medicine 08/30/19 Mark Queen MD Consulting Physician Infectious Diseases 01/10/20 Brandie Callejas MA Patient Plastics Factory Worker 06/20/22 06/22/22 Xenia Padilla LPN [address] [place] [address] [address] [place] [address] Monitoring Manager 06/24/22 06/24/22 Samples, Melania Joel RN [address] [place] [address] [address] [place] [address] Monitoring Manager 07/22/22 08/21/22 Anam Costa LCSW [address] [place] [address] [address] [place] [address] Product Marketer 08/08/22 02/18/23 Samples, Melania Joel RN [address] [place] [address] [address] [place] [address] Monitoring Manager 08/22/22 12/07/22 Rudolph Welch MD [address] [facility] [address] [place] [address] Consulting Physician Infectious Diseases 12/05/22 Markie Ryan MD [address] [facility] [address] [place] [address] Consulting Physician Nephrology 12/05/22 Nadege Ramírez RN [address] [place] [address] [address] [place] [address] Monitoring Manager 01/20/23 02/23/23 Dulce Vega RN [address] [place] [address] [address] [place] [address] Monitoring Manager 10/07/23 05/03/24 [place] [address] [place] [address] Consulting Physician Nephrology 10/22/23 Jaya Grier MD [address] [facility] [address] [place] [address] Consulting Physician Gastroenterology 02/01/24 Edgardo Kauffman MD [address] [facility] [address] [place] [address] Surgeon Vascular Surgery 07/15/24 documented as of this encounter
--- OUTSIDE RECORDS SUMMARY | 2024-09-21 14:57 | XMS_ITS ---
Author Organization [facility] Address [address] [place] [address] Care Team Providers [employer] Faculty Member Name Role Phone Cherelle Corcoran MD Primary Care Pro vider Mark Queen MD Unavailable [phone] Rudolph Welch MD Unavailable Markie Ryan MD Unavailable [phone] Jimbo Strauss MD Unavailable Jaya Grier MD Unavailable Edgardo Kauffman MD Unavailable Dialysis Access Sites Type Status Location Placement Date Removal Da te Hemodialysis Cath Double 10/15/23 Tunneled catheter Right Internal Jugular Active Right Neck (side) - Anterior 10/15/2023 Procedures Procedure Name Priority Date/Time Associated Diagnosis Comments POCT GLUCOSE DEVICE Routine 09/13/2024 9:47 AM CDT SURGICAL PATHOLOGY Routine 09/13/2024 9:28 AM CDT Ulcer of esophagus without bleeding ESOPHAGOGASTRODUODENOSCOPY BIOPSY 09/13/2024 9:20 AM CDT Ulcer of esophagus without bleeding EGD 09/13/2024 9:17 AM CDT POC BLOOD GAS AND CHEMISTRIE S, VENOUS Routine 09/13/2024 8:54 AM CDT [place] INJECTION SINGLE/MANAGER OF MAINTENANCE TRIGGER POINT 1/2 MUSCLES Routine 09/08/2024 9:00 AM CDT Myofascial pain syndrome, cervical CT HEAD WO CONTRAST Schedule Routine, Read Routine (OP Routine) 09/07/2024 POCT HEMOGLOBIN A1C Routine 08/22/2024 8:55 AM BENCH PRECISION ASSEMBLER Type 2 diabetes mellitus with diabetic nephropathy, with long-term current use of insulin (HCC) RESPIRATORY PATHOGEN PANEL STAT 07/31 1:02 PM BENCH PRECISION ASSEMBLER DIABETIC EYE EXAM Routine 07/27/2024 12:37 PM BENCH PRECISION ASSEMBLER HM DIABETES EYE EXAM Routine 07/22/2024 XR CHEST 1 VIEW ED Urgent/IP Urgent 07/15/2024 1:11 PM BENCH PRECISION ASSEMBLER RPL DRE CVC W/O PUMP [id number] Routine 07/15 12:40 PM BENCH PRECISION ASSEMBLER ESRD (end stage renal disease) on dialysis (HCC) XR CHEST 1 VIEW ED Urgent/IP Urgent 07/14/2024 1:16 PM BENCH PRECISION ASSEMBLER EGFR STAT 07/14/2024 12:34 PM BENCH PRECISION ASSEMBLER DIFFERENTIAL AUTO STAT 07/14/2024 12:34 PM BENCH PRECISION ASSEMBLER BASIC METABOLIC PANEL STAT 07/14/2024 12:34 PM BENCH PRECISION ASSEMBLER CBC WITH AUTO DIFFERENTIAL STAT 07/14 12:34 PM BENCH PRECISION ASSEMBLER SURGICAL PATHOLOGY Routine 07/13/2024 11:10 AM BENCH PRECISION ASSEMBLER Anemia, unspecified type Gastritis without bleeding, unspecified chronicity, unspecified gastritis type ESOPHAGOGASTRODUODENOSCOPY BIOPSY 07/13/2024 11:03 AM BENCH PRECISION ASSEMBLER Anemia, unspecified type Gastritis without bleeding, unspecified chronicity, unspecified gastritis type EGD 07/13/2024 10:59 AM BENCH PRECISION ASSEMBLER POC BLOOD GAS AND CHEMISTRIE S, VENOUS Routine 07/13/2024 10:12 AM BENCH PRECISION ASSEMBLER TROPONIN T HIGH-SENSITIVITY 2-HOUR Timed 07/12/2024 1:59 PM BENCH PRECISION ASSEMBLER URINALYSIS, MICROSCOPIC ONLY STAT 1:05 PM BENCH PRECISION ASSEMBLER DRUGS OF ABUSE SCREEN, URINE WITHOUT CONFIRMATION STAT 07/12/2024 1:05 PM BENCH PRECISION ASSEMBLER URINE CULTURE STAT 07/12/2024 1:05 PM BENCH PRECISION ASSEMBLER URINALYSIS AND REFLEX TO MICROSCOPIC AND CULTURE STAT 07/12/2024 1:05 PM BENCH PRECISION ASSEMBLER THYROID FUNCTION CASCADE STAT 025 11:53 AM BENCH PRECISION ASSEMBLER EGFR STAT 07/12/2024 11:53 AM BENCH PRECISION ASSEMBLER DIFFERENTIAL AUTO STAT 07/12/2024 11:53 AM BENCH PRECISION ASSEMBLER TROPONIN T HIGH-SENSITIVITY SERIES (BASELINE, 2HR, 4HR, 6HR) STAT 07/12/2024 11:53 AM BENCH PRECISION ASSEMBLER CBC WITH AUTO DIFFERENTIAL STAT 07/12 11:53 AM BENCH PRECISION ASSEMBLER COMPREHENSIVE METABOLIC PANEL STAT 11:53 AM BENCH PRECISION ASSEMBLER INFLUENZA A/B, RSV, AND COVID-19 PCR Routine 07/12/2024 11:53 AM BENCH PRECISION ASSEMBLER ECG 12-LEAD STAT 07/12/2024 11:48 [address] [employer]CH [employer] [address] CT FACIAL BONES WO CONTRAST ED 06/23 10:38 [address] [address] CT CERVICAL SPINE WO CONTRAST ED 10:38 AM BENCH PRECISION ASSEM[employer]ER CT HEAD WO CONTRAST ED 07/12/2024 10:38 AM BENCH PRECISION ASSEMBLER XR SHOULDER RIGHT 2 OR MORE VIEWS ED 07/12/2024 10:08 AM BENCH PRECISION ASSEMBLER XR SHOULDER LEFT 2 OR MORE VIEWS ED 07/12/2024 10:08 AM BENCH PRECISION ASSEMBLER POCT GLUCOSE DEVICE Routine 07/12/2024 9:33 AM BENCH PRECISION ASSEMBLER LIPID PANEL Routine 05/16/2024 10:14 AM BENCH PRECISION ASSEMBLER Mixed hyperlipidemia COLONOSCOPY 03/01/2024 8:49 AM CDT [...] 595 g 024 Active FreeStyle Madhav 3 [facility] [place] [...] mg oral2 times daily PRN, Reported on 09/08/2024 hydrALAZINE (APRESOLINE) 25 mg tabletIndications :hypertension Take [...] route daily 100 strip 3 025 Active blood-glucose sensor (FreeStyle Madhav 3 Plus Sensor) deviceIndications :Type 2 diabetes mellitus with diabetic nephropathy, with long-term current use of insulin ([facility]) Use to continually monitor glucose, change sensor every 15 days 6 each 3 025 Active risperiDONE (RisperDAL) 2 mg tablet Take 1 tablet (2 mg total) by mouth daily 025 Active famotidine (PEPCID) 20 mg tablet Take 1 tablet (20 mg total) by mouth 2 (two) times a day Active pantoprazole DR (PROTONIX) 40 mg EC tabletIndications :Gastroesophageal reflux disease without esophagitis Take 1 tablet (40 mg total) by mouth daily before breakfast 90 tablet 3 025 Active omeprazole (PriLOSEC) 20 mg capsuleIndication s:Gastroesophagea l reflux disease, unspecified whether esophagitis present Take 1 capsule (20 mg total) by mouth daily 90 capsule 021 2021 Discontinued flash glucose scanning reader miscIndications:T ype 2 diabetes mellitus with diabetic neuropathy, with long-term current use of insulin ([facility]) Use Madhav 3 reader to scan Madhav 3 sensor 1 each 024 2024 Discontinued(D uplicate order) pantoprazole DR (PROTONIX) 40 mg EC tabletIndications :Gastroesophageal reflux disease without esophagitis TAKE 1 TABLET(40 MG) BY MOUTH TWICE DAILY 180 tablet 025 2024 Discontinued Hospital, Clinic, or Other Facility Administered Medication Ordered Dose Route Frequency Start Date End Date Status lidocaine (XYLOCAINE) 10 mg/mL (1 %) injection 2 mLIndications:Admini stration of Local Anesthesia 2 mL One-Time Injection 09/08/2024 09/08/2024 Ended triamcinolone (KENALOG) 40 mg/mL injection 80 mgIndications:Myofas cial pain syndrome, cervical 80 mg One-Time Injection 09/08/2024 09/08/2024 Ended Active Problems Problem Noted Date Diagnosed Date 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 mellitus 07/22/2024 Ulcer of esophagus without bleeding 07/18/2024 ESRD (end stage renal disease) on dialysis 07/14 Type 2 diabetes mellitus wit h diabetic nephropathy, without long-term current use of insulin 07/07/2024 Hyperlipidemia associated with type 2 diabetes m saba 07/07/2024 Assessment & Plan (07/14/2024 2:30 PM BENCH PRECISION ASSEMBLER): Continue Lipitor Assessment & Plan (07/14/2024 8:56 AM BENCH PRECISION ASSEMBLER): Ok to restart atorvastatin, but also given [...] Assessment & Plan (07/14/2024 2:39 PM BENCH PRECISION ASSEMBLER): Patient is needing a Perma catheter exchange [...] Assessment & Plan (07/14/2024 8:51 AM BENCH PRECISION ASSEMBLER): Following with nephrology Assessment & Plan (01/06/2024 [...] Assessment & Plan (05/06/2024 7:49 AM BENCH PRECISION ASSEMBLER): Reviewed hospital discharge summary Now resolved Upcoming [...] Assessment & Plan (07/24/2023 1:51 PM BENCH PRECISION ASSEMBLER): Chronic/stable Parkinsonism 08/14/2022 Assessment & Plan (07/14/2024 8:54 AM BENCH PRECISION ASSEMBLER): Following with neurology, recommend reaching out to them in regards to restarting benztropine. Consider waiting until after restarts other medications given daughter reports tremors controlled off benztropine currently Assessment & Plan (11/10/2023 4:43 PM CDT): Following with neurology On cogentin Assessment & Plan (07/24/2023 1:50 PM BENCH PRECISION ASSEMBLER): Following with neurology On cogentin twice a day Assessment & Plan (01/23/2023 9:20 AM CDT): Following with neurology On cogentin twice a day Assessment & Plan (10/10/2022 10:41 AM CDT): Following with neurology On cogentin Assessment & Plan (08/14/2022 10:46 AM BENCH PRECISION ASSEMBLER): Following with neurology, reviewed note On cogentin [...] a walker. - PT/OT recommends SNF. -Plan [facility] on 11/26 ? Assessment & Plan (11/24/2021 2:07 PM CDT): Deconditioning 2/2 prolonged hospitalization. Daughter reports that prior to her illness, she was independent with a walker. - PT/OT recommends SNF. -Plan [facility] on 11/25. Assessment & Plan (11/23/2021 12:24 PM CDT): Deconditioning 2/2 prolonged hospitalization. Daughter reports that prior to her illness, she was independent with a walker. - PT/OT recommends SNF. -Plan Agueda Rizzo [facility] on 11/25. Assessment & Plan (11/22/2021 1:34 [...] Assessment & Plan (08/14/2022 10:47 AM BENCH PRECISION ASSEMBLER): Following with podiatry Assessment & Plan (04/02/2022 [...] weight 155lbs -Home with family at [place], insert cutter consulted to review salt restrictions. -outpatient BMP, [...] Goal weight 155lbs -Home [place] family at [place], insert cutter consulted to review salt restrictions. Assessment & [...] - renal consulted regarding volume management, possible manager terminal dialysis planning, expedite OP f/u. Serologies and urine studies ordered. -Added metolazone 2.5mg/daily per renal. -Anticipate likely transition to PO agents prior to DC with ongoing clinical improvement. Goal weight 145-150lbs -Home with family at [place], insert cutter consulted to review salt restrictions. Assessment & [...] - renal consulted regarding volume management, possible manager terminal dialysis planning, expedite OP f/u. Serologies and [...] possible [facility] dialysis planning, expedite OP f/u. Assessment & [...] net neg 1/2-1L/day. -consider renal consult regarding manager terminal dialysis planning, expedite OP f/u. Assessment & [...] net neg 1/2-1L/day. -consider renal consult regarding usp dialysis planning. Assessment & Plan (09/06/2021 10:28 [...] Assessment & Plan (07/14/2024 8:53 AM BENCH PRECISION ASSEMBLER): Following with neurology Assessment & Plan (01/05/2024 10:40 PM CDT): Follows with neurology. -continue risperidone 2mg QHS -continue benztropine 2mg daily Assessment & Plan (11/10/2023 4:37 PM CDT): Following with neurology Assessment & Plan (07/24/2023 1:50 PM BENCH PRECISION ASSEMBLER): Following with neurology Assessment & Plan (01/23/2023 9:18 AM CDT): Following with neurology Assessment & Plan (10/10/2022 10:37 AM CDT): Following with neurology, ordered MRI, # given to son to schedule Assessment & Plan (06/09/2022 3:37 PM BENCH PRECISION ASSEMBLER): Needs to reschedule with neurology Looking into [facility], but declined for [facility] for schizoaffective disorder Assessment & Plan (01/14/2022 9:05 AM CDT): Following with psychiatry Assessment & Plan (09/03/2021 3:28 PM CDT): Chronic, stable. Alert, oriented to self, current place. Continue to monitor. Clock drawing test at next interval. Consideration for Aricept. Encounter for Medicare annual wellness exam 12/21 Assessment & Plan (11/10/2023 4:42 PM CDT): Reviewed PM & PHQ Screening PHQ-2 Total Score (If total score is 3 or more points, staff should administer the PHQ-9): 2 Hearing/vision screening reviewed, referrals placed as needed Fall risk reviewed Reviewed medications and supplements Specialists: endocrine, nephrology, cardiology, neurology, psychiatry evidence of cognitive impairment HCM: orders placed as needed Assessment & Plan (06/09/2022 3:37 PM BENCH PRECISION ASSEMBLER): Reviewed PM & PHQ Screening PHQ-2 Total [...] Assessment & Plan (08/18/2024 8:44 AM BENCH PRECISION ASSEMBLER): Chronic, stable. Does not report any stephanie [...] Assessment & Plan (07/14/2024 8:54 AM BENCH PRECISION ASSEMBLER): Following with psychiatry, recommend reaching out to [...] Assessment & Plan (07/24/2023 1:50 PM BENCH PRECISION ASSEMBLER): Following with psychiatry Assessment & Plan (01/23/2023 [...] Assessment & Plan (08/09/2021 5:42 AM BENCH PRECISION ASSEMBLER): Following with psychiatry Assessment & Plan (08/07/2021 3:28 PM BENCH PRECISION ASSEMBLER): Chronic condition, switch to Haldol and has had multiple different problems including acute kidney failure in infectious process. [facility] Confounded by delirium. Currently experiencing delirium will discontinue Haldol and return to Risperdal as previously taking. Risperdal was discontinued due to poorly-controlled diabetes. Monitor in 1 to 2 weeks. Assessment & Plan (07/03/2021 7:24 AM BENCH PRECISION ASSEMBLER): Following with psychiatry D/c risperidone, started on haldol Assessment & Plan (07/01/2021 9:16 PM BENCH PRECISION ASSEMBLER): Chronic, stable. +persistent auditory hallucinations Discontinue Risperdal [...] Reviewed all of those notes-primary care doctor, economic historian, laundry or dry cleaners counter clerk. The patient previously lived on her own and was observed to be hoarding. See additional problems-dementia. Evaluate again in 1 month after starting Risperdal. Iron deficiency anemia 04/02/2020 Assessment & Plan (05/06/2024 7:51 AM BENCH PRECISION ASSEMBLER): Recommend discussing IV iron with nephrology Assessment & Plan (10/02/2020 4:35 PM CDT): Continue iron Assessment & Plan (05/28/2020 1:51 PM BENCH PRECISION ASSEMBLER): Iron levels recently normalized, but still anemic, repeat today Assessment & Plan (04/16/2020 11:45 AM CDT): Recent iron within normal limits, H/H improving, continue supplementation until normalized Gastroesophageal reflux disease without esophagi tis 04/02/2020 Assessment & Plan (07/14/2024 8:56 AM BENCH PRECISION ASSEMBLER): Restart protonix Upcoming EGD Assessment & Plan (01/05/2024 10:40 PM CDT): -continue famotidine Assessment & Plan (10/02/2020 4:35 PM CDT): Continue omeprazole Assessment & Plan (07/24/2020 2:06 PM BENCH PRECISION ASSEMBLER): Recurrent symptoms off omeprazole, restart Assessment & Plan (05/28/2020 1:51 PM BENCH PRECISION ASSEMBLER): Iron levels recently normalized, but still anemic, repeat today Assessment & Plan (04/02/2020 1:26 PM CDT): Start PPI History of amputation of toe 01/19/2020 Assessment & Plan (01/08/2021 3:50 PM CDT): Stable Assessment & Plan (10/02/2020 4:35 PM CDT): Stable Assessment & Plan (04/30/2020 1:00 PM BENCH PRECISION ASSEMBLER): Stable Assessment & Plan (02/14/2020 5:15 PM CDT): Healing well Following with surgeon/wound clinic Assessment & Plan (01/19/2020 5:17 PM CDT): Has home health Following with vascular Hypertension associated with diabetes 12/13/2019 Assessment & Plan (07/14/2024 2:32 PM BENCH PRECISION ASSEMBLER): Continue carvedilol, hydralazine Assessment & Plan (07/14/2024 8:51 AM BENCH PRECISION ASSEMBLER): BP controlled today off medication Daughter reports nephrology said could restart medication, is planning to restart coreg first and monitor blood pressure prior to restarting nifedipine/hydralazine Assessment & Plan (05/06/2024 7:48 AM BENCH PRECISION ASSEMBLER): BP controlled Continue nifedipine, hold prior to [...] x1 with HD. Most recent admission at [facility] with initiation of hydralazine and nifedipine in [...] Assessment & Plan (08/03/2023 4:02 PM BENCH PRECISION ASSEMBLER): BP uncontrolled Start 5mg amlodipine Assessment & Plan (07/24/2023 1:49 PM BENCH PRECISION ASSEMBLER): Blood pressure borderline today off medications Assessment & Plan (01/23/2023 9:18 AM CDT): Blood pressure borderline low today, asymptomatic Checking labs Advised to decrease amlodipine to 5mg and monitor blood pressure Assessment & Plan (10/10/2022 10:50 AM CDT): Continue coreg 6.25mg twice a day & 40mg valsartan Assessment & Plan (08/14/2022 10:43 AM BENCH PRECISION ASSEMBLER): Blood pressure at goal, continue coreg 6.25mg twice a day Assessment & Plan (06/09/2022 3:32 PM BENCH PRECISION ASSEMBLER): Blood pressure at goal, continue coreg 3.125mg [...] Assessment & Plan (08/05/2021 10:35 AM BENCH PRECISION ASSEMBLER): Blood pressure at goal Increase amlodipine to 10mg & d/c hydralazine per cardiology Assessment & Plan (05/28/2021 4:59 PM BENCH PRECISION ASSEMBLER): Blood pressure above goal, but previously within [...] Assessment & Plan (08/28/2020 12:12 PM BENCH PRECISION ASSEMBLER): Blood pressure at goal Continue lisinopril Assessment & Plan (07/24/2020 2:05 PM BENCH PRECISION ASSEMBLER): Blood pressure at goal Continue lisinopril Assessment & Plan (05/28/2020 1:50 PM BENCH PRECISION ASSEMBLER): BP borderline Continue 10mg lisinopril Continue to monitor Assessment & Plan (04/30/2020 12:32 PM BENCH PRECISION ASSEMBLER): BP borderline Continue 10mg lisinopril Continue to [...] Assessment & Plan (07/14/2024 2:31 PM BENCH PRECISION ASSEMBLER): Controlled. Continue as per Endocrine and PCP Assessment & Plan (07/14/2024 8:50 AM BENCH PRECISION ASSEMBLER): Following with endocrine, reviewed note Holding insulin [...] Assessment & Plan (07/24/2023 1:49 PM BENCH PRECISION ASSEMBLER): Lab Results Component Value Date HGBA1C 8.1 [...] Assessment & Plan (08/14/2022 10:42 AM BENCH PRECISION ASSEMBLER): Following with endocrine Continue lantus, 12 units humalog TIDAC & 1.5mg trulicity Assessment & Plan (06/09/2022 3:32 PM BENCH PRECISION ASSEMBLER): Following with endocrine Home blood sugar at [...] for strict med oversight by family at [place] reviewed with daughter this admit. Assessment & [...] for strict med oversight by family at [place] reviewed with daughter this admit. Assessment & [...] and nephropathy. Med oversight by family at [place]. Assessment & Plan (09/14/2021 12:22 PM CDT): [...] as she had discussed this with outpatient detective chief - repeat A1c - resume home statin, not currently on feliciano due to kidney function Assessment & Plan (08/05/2021 10:35 AM BENCH PRECISION ASSEMBLER): Continue 15 units lantus twice a day Assessment & Plan (07/03/2021 7:24 AM BENCH PRECISION ASSEMBLER): Fasting blood sugar significantly improved Risperidone changed Continue current meds Continue to monitor Assessment & Plan (06/18/2021 11:22 AM BENCH PRECISION ASSEMBLER): Increase lantus to 60 units nightly, if blood sugar still above goal after 1 week split into 33 units twice a day Follow up with blood sugar via portal in 2 weeks Continue jardiance 25mg Continue trulicity 4.5mg weekly Assessment & Plan (05/28/2021 4:58 PM BENCH PRECISION ASSEMBLER): Increase lantus to 55 units nightly Continue [...] Assessment & Plan (08/28/2020 1:00 PM BENCH PRECISION ASSEMBLER): DM Care Plan: Meds: Lantus - continue [...] Assessment & Plan (07/24/2020 2:05 PM BENCH PRECISION ASSEMBLER): Formulary change 2/2 insurance, switched to trulicity. Will increase to 1.5mg Assessment & Plan (05/28/2020 1:50 PM BENCH PRECISION ASSEMBLER): Check a1c Sixto isn't checking blood sugar regularly, but when she is she has several >200 so I lean towards increasing if a1c>7 Assessment & Plan (04/30/2020 12:31 PM BENCH PRECISION ASSEMBLER): Blood sugar improved on 40 units basaglar [...] doctor or pharmacy Often 01/20/2024 [facility] Utilities Answer Date Recorded In the past 12 months has e [employer], [employer], or water [employer] threatened to shut off services in your [...] How often do you attend chur or buddhism services? More than 4 times [...] you have a drink containing alcohol? Never 09/13/2024 Q2: How many drinks containi ng alcohol do you have on a typical day when you are drinking? Patient does not drink Q3: How often do you have si x or more drinks on one occasion? Never 09/13/2024 Overall Financial Resource Strain (CARDIA) Answe r [...] in the past 12 m [facility], were you homeless or living in a penitentiary (including now)? No 04/20/2024 Personal Safety Answer Date Recorded Have you ever been in or are you currently in a harmful physical or emotional relationship or is someone making you feel afraid or unsafe? Denies 09/13/2024 Comments No Sex and Gender Information Value Date Recorded Sex Assigned at Not on file Legal Sex Female 9:03 AM BENCH PRECISION ASSEMBLER Gender Identity Female 02/08/2020 6:39 PM CDT Sexual Orientation Not on file Last Filed Vital Signs Vital Sign Reading Time Taken Comments Blood Pressure 204/101 09/13/2024 9:55 AM CDT Pulse 65 09/13/2024 9:55 AM CDT Temperature 36.1 C (97 F) 09/13/2024 9:35 AM CDT Respiratory Rate 16 09/13/2024 9:55 AM CDT Oxygen Saturation 98% 09/13/2024 9:55 AM CDT Inhaled Oxygen Concentration - - Weight 59 kg (130 lb) 09/13/2024 8:08 AM CDT Height 157.5 cm (5' 2 ) 09/13/2024 8:08 AM CDT Body Mass Index 23.78 09/13/2024 8:08 AM CDT Results * POCT glucose (09/13/2024 9:47 AM CDT) Glucose, POC 176 70 - 199 mg/dL Glucose comment 1 RN/MD Notified [facility] Blood 09/13/2024 9:47 AM CDT 09/13/2024 9:47 AM CDT us Jaya Grier MD LAB POCT ORDERABLES - DEVICE Fin al Result [address] Department [place] [address] * Surgical pathology (09/13/2024 9:28 AM CDT) Tissue specimen (specimen) (Esophageal biopsy) 09/13/2024 9:28 AM CDT Comment:Cold bx Narrative PATHOLOGY [facility] - 09/14/2024 1:55 PM CDT [facility] Department of Pathology [address] [place] [id number] Note to Patients: This report may contain [...] : 1950 (Age: 73) Gender: F Address: [address] [place] [address] Hospital #: [id number] Service: Gastro Location: Patient Type: [facility] OUTPATIENT Taken: 09/13/2024 Received: 09/13/2024 Accessioned: 09/13/2024 Reported: 09/14/2024 Physician(s): Cinthia Jarvis M.D. Diagnosis: Esophagus, distal, biopsy: - Squamous mucosa, and adjoining and separate fragment of cardio-oxyntic mucosa with reactive epithelial changes - No goblet cells characteristic of Bryan mucosa are seen Evangelina Baltazar M.D., Ph.D. Report Electronically Reviewed and Signed Out By Evangelina Baltazar M.D., Ph.D. 09/14/2024 13:55:39 Specimen(s) Received: A: Distal esophagus biopsy rule out Bryan's esophagus Microscopic Description: Unless gross-only is specified, the final diagnosis for each specimen is based on a microscopic examination of each tissue sample. Clinical History: The patient is a 73-year-old woman with an ulcer of the esophagus without bleeding. Operative procedure: Upper GI endoscopy with biopsy. Gross Description Received in formalin, labeled with the patient s identifiers and distal esophagus biopsy rule out Bryan's esophagus and consists of three cowan tissue fragments ranging from 0.2-0.3 cm. Entirely submitted. Labeled A1. Jar 0. jjb/09/13/2024 13:20 CAMILA Johnson, PA ([facility]) Microscopic slide review and interpretation for this case was performed at [facility], Department of Surgical Pathology, [address] [facility] [place], [place] [id number], [place] [address] CLIA # [id number] us Jaya Grier MD LAB PATHOLOGY ORDERABLES Final R esult PATHOLOGY [facility] * EGD (09/13/2024 9:17 AM CDT) Anatomical Region Laterality Modality Other Narrative Procedure Note Jaya Grier MD - 09/13/2024 9:17 AM CDT [facility] GI ENDOSCOPY Patient Name: Sixto Chakraborty Procedure Date: 09/13/2024 9:17 AM Date of : 1950 Admit Type: Outpatient Age: 73 Gender: Female Attending MD: Jaya Grier M.D. Room: [facility] ENDOSCOPY ROOM 03 Note Status: Finalized Procedure: Upper GI endoscopy Indications: Follow-up of esophageal ulcer Referring MD: Providers: Jaya Grier M.D. Medicines: [...] scope was passed under direct vision. The GIF-Q180 upper endoscope was introduced through the mouth, and advanced to the second part of duodenum. The upper GI endoscopy was accomplished without difficulty. The patient tolerated the procedure well. Findings: The Z-line was irregular and was found in the distal esophagus. Thiswas biopsied with a cold forceps for evaluation to rule out Bryan's Esophagus. A 2 cm hiatal hernia was present. The exam of the stomach was otherwise normal. The examined duodenum was normal. The cardia and gastric fundus were normal on retroflexion. The exam was otherwise without abnormality. Impression: - Z-line irregular, in the distal esophagus.Biopsied. - 2 cm hiatal hernia. - Normal examined duodenum. - The examination was otherwise normal. Recommendation: - Patient has a contact number available for emergencies. The signs and symptoms of potential delayed complications were discussed with thepatient. Return to normal activities tomorrow. Written discharge instructions were provided to thepatient. - GERD RECOMMENDATIONS given include: anti-reflux maneuvers, avoid acidic foods like oranges and tomatoes, avoidance of spicy foods, avoid eating3-4 hours before bed, elevation of the head of the bed, and weight loss. - Decrease pantoprazole to 40 mg p.o. daily.Continue famotidine daily p.r.n.. Avoid NSAIDs. - Await pathology results. - Patient was advised to call GI office and make an appointment if symptoms persist. Jaya Grier M.D. Jaya Grier M.D. 09/13/2024 9:33:57 AM . Number of Addenda: 0 Note Initiated On: 09/13/2024 9:17 AM Recognized by the [employer] for promoting quality in endoscopy us Jaya Grier MD ENDOSCOPY PROCEDURES Final Resul t * (ABNORMAL) POC Blood Gas and Chemistries, Venous - (09/13/2024 8:54 AM CDT) pH,chris POC 7.34 7.32 - 7.43 pCO2, chris POC 51(H) 40 - 50 mmHg [facility] pO2,chris POC 22 mmHg [facility] Comment: Interpretive Data No reference range established. Current interpretive data was last revised 2020. HCO3, chris (Calc) POC 27 20 - 30 mmol/L [facility] Base excess, chris POC 1 mmol/L [facility] Comment: Interpretive Data No reference range established. Current interpretive data was last revised 2020. Hemoglobin, chris POC 10.9(L) 11.9 - 15.5 g/dL [facility] Hematocrit, chris POC 32.0(L) 35.6 - 45.5 % [facility] Sodium, chris POC 141 135 - 145 mmol/L [facility] Potassium, chris POC 4.4 3.3 - 4.9 mmol/L [facility] Comment: Interpretive Data This method is not able to assess for hemolysis, which may falsely increase potassium concentrations. If further testing is needed to evaluate this result, consider in-laboratory plasma potassium. Current Interpretive Data was last revised on 2022. Glucose, chris POC 170 70 - 199 mg/dL [facility] Ionized Calcium, chris POC 4.90 4.50 - 5.10 mg/dL [facility] Blood 09/13/2024 8:54 AM CDT 09/13/2024 8:54 AM CDT us Jaya Grier MD LAB POCT ORDERABLES - DEVICE Fin al Result [facility] [address] [facility] Department [place] [address] * [place] INJECTION SINGLE/MANAGER OF MAINTENANCE TRIGGER POINT 1/2 MUSCLES (09/08/2024 9:00 AM CDT) Narrative Brook Muhammad NP - 09/08/2024 9:00 AM CDT Brook Muhammad NP 09/08/2024 8:53 PM Trigger Point Injection Performed by: Brook Muhammad NP Authorized by: Brook Muhammad NP Consent Given by: Patient Site marked: the procedure site was marked Timeout: prior to procedure the correct patient, procedure, and site was verified Consent obtained:: Verbal Risks discussed, including, but not limited to:: Pain Alternatives discussed:: Alternative treatment Site/side marked: Yes Indications: Pain Location: R cervical paraspinal Local anesthetic: Ethyl chloride spray Ultrasound guidance: No Needle size: 25 G Number of muscles: 1 or 2 Approach: Posterior Medications: 2 mL lidocaine 10 mg/mL (1 %); 80 mg triamcinolone 40 mg/mL Patient tolerance: Patient tolerated the procedure well with no immediate complications Brook Muhammad SH[employer]'S SURVEYOR IN CLINIC/BEDSIDE ORDERABLE S Final Result * CT Head WO Contrast (09/07/2024) Anatomical Region Laterality Modality Head and Neck N/A Computed Tomogra phy Historical Provider IMG CT PROCEDURES Final R esult * POCT hemoglobin A1c (08/22/2024 8:55 AM BENCH PRECISION ASSEMBLER) [facility] Hemoglobin A1C, POC 7.7 4.0 - 5.6 % Blood 08/22/2024 8:55 AM BENCH PRECISION ASSEMBLER Smith Gibbs MD POINT OF CARE TEST ORDERABLE S Final Result * Respiratory pathogen panel Nasopharyngeal (07/31/2024 1:02 PM BENCH PRECISION ASSEMBLER) [facility] Influenza A RNA Not Detected Not Detected [facility] Influenza B RNA Not Detected Not Detected [facility] RSV RNA Not Detected Not Detected [facility] COVID-19 RNA Not Detected Not Detected [facility] Coronavirus 229E RNA Not Detected Not Detected [facility] Coronavirus HKU1 RNA Not Detected Not Detected [facility] Coronavirus NL63 RNA Not Detected Not Detected [facility] Coronavirus OC43 RNA Not Detected Not Detected [facility] Adenovirus DNA Not Detected Not Detected [facility] Metapneumovirus RNA Not Detected Not Detected [facility] Rhinovirus/Enterov irus RNA Not Detected Not Detected [facility] Parainfluenza 1 RNA Not Detected Not Detected [facility] Parainfluenza 2 RNA Not Detected Not Detected [facility] Parainfluenza 3 RNA Not Detected Not Detected [facility] Parainfluenza 4 RNA Not Detected Not Detected [facility] B. pertussis DNA Not Detected Not Detected [facility] B. parapertussis DNA Not Detected Not Detected [facility] C. pneumoniae DNA Not Detected Not Detected [facility] M. pneumoniae DNA Not Detected Not Detected [facility] Comment: Interpretive Data The [employer] FilmArray Respiratory Panel (RP2.1) assay is a [...] assay has FDA clearance for testing of SHIP'S SURVEYOR swabs. The performance characteristics of this assay have been determined by [facility]. Current interpretive data was last revised on 2021. Nasopharyngeal 07/31/2024 1: 02 PM BENCH PRECISION ASSEMBLER 07/31/2024 1:05 PM BENCH PRECISION ASSEMBLER Narrative NIL[facility] - 07/31/2024 2:05 PM BENCH PRECISION ASSEMBLER Is the Patient experiencing symptoms consistent with COVID?->Yes Surveillance testing for transplant patient?->No Lucy Lucero MD LAB MICROBIOLOGY - GENE RAL ORDERABLES Final Result [facility] [address] Department [place] [address] * Diabetic Eye Exam (07/27/2024 12:37 PM BENCH PRECISION ASSEMBLER) Historical Provider HEALTH MAINTENANCE Final Result * HM DIABETES EYE EXAM (07/22/2024) Historical Provider MD HEALTH MAINTENANCE Final Result * XR Chest 1 View (07/15/2024 1:11 PM BENCH PRECISION ASSEMBLER) Anatomical Region Laterality Modality Body, Chest N/A Computed Radiogr aphy 07/15/2024 1:35 PM BENCH PRECISION ASSEMBLER Narrative 07/15/2024 1:36 PM BENCH PRECISION ASSEMBLER EXAM DESCRIPTION: XR CHEST 1 VIEW REASON [...] Yosef Lindo D.O. PS T: Report ID: [id number] Reading Location: [id number] Procedure Note [place] Yosef Jacky, DO - 07/15/2024 EXAM DESCRIPTION: XR CHEST [...] Yosef Lindo D.O. PS T: Report ID: [id number] Reading Location: [id number] Edgardo Kauffman MD IMG XR PROCEDURES Final Re sult * RPL DRE CVC W/O [id number] (07/15/2024 12:40 PM BENCH PRECISION ASSEMBLER) Anatomical Region Laterality Modality X-Ray Angiograph y Narrative 07/15/2024 12:45 PM BENCH PRECISION ASSEMBLER Please see OpNote for result. Edgardo Kauffman MD CV CARDIAC CATH PROCEDURES Final Result * XR Chest 1 View (07/14/2024 1:16 PM BENCH PRECISION ASSEMBLER) Anatomical Region Laterality Modality Body, Chest N/A Computed Radiogr aphy 07/14/2024 1:20 PM BENCH PRECISION ASSEMBLER Narrative 07/14/2024 1:22 PM BENCH PRECISION ASSEMBLER EXAM DESCRIPTION: XR CHEST 1 VIEW REASON [...] 1:22 PM - Electronically signed by Salvador TOLENTINO T: Report ID: [id number] Reading Location: [id number] Procedure Note Salvador Villa MD - 07/14/2024 [...] 1:22 PM - Electronically signed by Salvador TOLENTINO T: Report ID: [id number] Reading Location: [id number] us Edgardo Kauffman MD IMG XR PROCEDURES Final Re sult * (ABNORMAL) eGFR (07/14/2024 12:34 PM BENCH PRECISION ASSEMBLER) [facility] eGFR 7(L) >=60 mL/min/1. 73 m2 Comment: [...] 2021. Blood 07/14/2024 12:3 4 PM BENCH PRECISION ASSEMBLER 07/14/2024 12:41 PM BENCH PRECISION ASSEMBLER us Edgardo Kauffman MD LAB BLOOD ORDERABLES Final Result [facility] [address] [facility] Department [place] [address] * (ABNORMAL) Differential, auto (07/14/2024 12:34 PM BENCH PRECISION ASSEMBLER) [facility] Neutrophil abs 7.8(H) 1.5 - 6.5 K/cumm Imm gran abs 0.0 0.0 - 0.1 K/cumm [facility] Lymphocyte abs 1.5 0.8 - 3.3 K/cumm [facility] Monocyte abs 0.5 0.2 - 0.8 K/cumm [facility] Eosinophil abs 0.2 0.0 - 0.5 K/cumm [facility] Basophil abs 0.0 0.0 - 0.1 K/cumm [facility] Neutrophil pct 78.1 % [facility] Comment: Interpretive Data Percent cell count reference ranges are not reported, since discordance with absolute values may lead to misinterpretation of CBC data. Current Interpretive Data was last revised on 2017. Imm gran pct 0.4 % [facility] Comment: Interpretive Data Percent cell count reference ranges are not reported, since discordance with absolute values may lead to misinterpretation of CBC data. Current Interpretive Data was last revised on 2017. Lymphocyte pct 14.8 % [facility] Comment: Interpretive Data Percent cell count reference ranges are not reported, since discordance with absolute values may lead to misinterpretation of CBC data. Current Interpretive Data was last revised on 2017. Monocyte pct 4.7 % [facility] Comment: Interpretive Data Percent cell count reference ranges are not reported, since discordance with absolute values may lead to misinterpretation of CBC data. Current Interpretive Data was last revised on 2017. Eosinophil pct 1.6 % [facility] Comment: Interpretive Data Percent cell count reference ranges are not reported, since discordance with absolute values may lead to misinterpretation of CBC data. Current Interpretive Data was last revised on 2017. Basophil pct 0.4 % [facility] Comment: Interpretive Data Percent cell count reference ranges are not reported, since discordance with absolute values may lead to misinterpretation of CBC data. Current Interpretive Data was last revised on 2017. Blood 07/14/2024 12:3 4 PM BENCH PRECISION ASSEMBLER 07/14/2024 12:41 PM BENCH PRECISION ASSEMBLER us Edgardo Kauffman MD LAB BLOOD ORDERABLES Final Result [facility] [address] [facility] Department [place] [address] * (ABNORMAL) CBC with auto differential (07/14/2024 12:34 PM BENCH PRECISION ASSEMBLER) WBC 9.9 3.8 - 9.9 K/cumm Hgb 11.6(L) 11.9 - 15.5 g/dL [facility] Hct 35.3(L) 35.6 - 45.5 % [facility] Plt 241 150 - 400 K/cumm [facility] MPV 11.0 9.1 - 12.3 fL [facility] RBC 3.63(L) 3.90 - 5.20 M/cumm [facility] MCV 97.2(H) 81.3 - 96.4 fL [facility] MCH 32.0 27.1 - 33.3 pg [facility] MCHC 32.9 32.3 - 35.7 g/dL [facility] RDW CV 15.4(H) 11.1 - 14.9 % [facility] RDW SD 54.8(H) 35.7 - 48.1 fL [facility] NRBC abs 0.00 0.00 - 0.01 K/cumm [facility] Blood 07/14/2024 12:3 4 PM BENCH PRECISION ASSEMBLER 07/14/2024 12:41 PM BENCH PRECISION ASSEMBLER us Edgardo Kauffman MD LAB BLOOD ORDERABLES Final Result [facility] [address] [facility] Department [place] [address] * (ABNORMAL) Basic metabolic panel (07/14/2024 12:34 PM BENCH PRECISION ASSEMBLER) Sodium 138 135 - 145 mmol/L Potassium, pl 4.1 3.3 - 4.9 mmol/L [facility] Comment:Hemolyzed; Potassium value may be falsely elevated by as much as 1.0 mmol/L. Suggest redraw and reanalysis. Chloride 100 97 - 110 mmol/L [facility] CO2 25 22 - 32 mmol/L [facility] Anion gap 13 2 - 15 mmol/L [facility] BUN 51(H) 6 - 25 mg/dL [facility] Creatinine 6.22(H) 0.60 - 1.10 mg/dL [facility] Glucose 155 70 - 199 mg/dL [facility] Comment: Interpretive Data Fasting glucose [...] 2022. Calcium 9.4 8.5 - 10.3 mg/dL [facility] Blood 07/14/2024 12:3 4 PM BENCH PRECISION ASSEMBLER 07/14/2024 12:41 PM BENCH PRECISION ASSEMBLER us Edgardo Kauffman MD LAB BLOOD ORDERABLES Final Result [facility] [address] Department [place] [address] * Surgical pathology (07/13/2024 11:10 AM BENCH PRECISION ASSEMBLER) Tissue specimen (specimen) (Duodenum, Biopsy) 07/13/2024 11:10 AM BENCH PRECISION ASSEMBLER Tissue specimen (specimen) (Gastric/Stomach biopsy) 07/13/2024 11:11 AM BENCH PRECISION ASSEMBLER Tissue specimen (specimen) (Gastric/Stomach biopsy) 07/13/2024 11:11 AM BENCH PRECISION ASSEMBLER Tissue specimen (specimen) (Esophageal biopsy) 07/13/2024 11:13 AM BENCH PRECISION ASSEMBLER Narrative PATHOLOGY [facility] - 07/14/2024 1:59 PM BENCH PRECISION ASSEMBLER [facility] Department of Pathology [address] [place] [id number] Note to Patients: This report may contain [...] : 1950 (Age: 73) Gender: F Address: [address] [place] [address] Hospital #: [id number] Service: Gastro Location: Patient Type: [facility] OUTPATIENT Taken: 07/13/2024 Received: 07/13/2024 Accessioned: 07/13/2024 Reported: 07/14/2024 Physician(s): Jaya Grier M.D. Cherelle Corcoran M.D. Diagnosis: A. Small intestine, duodenum, biopsy: [...] cm. Entirely submitted. Labeled D1. Jar 0. jjb/07/13/2024 13:31 CAMILA Johnson, [place] ([facility]) Microscopic slide review and interpretation for this case was performed at [facility], Department of Surgical Pathology, [address] [facility] [address] [place] [id number], [place] [address] [facility] # [id number] us Jaya Grier MD LAB PATHOLOGY ORDERABLES Final R esult PATHOLOGY [facility] * EGD (07/13/2024 10:59 AM BENCH PRECISION ASSEMBLER) Anatomical Region Laterality Modality Other Narrative Procedure Note Jaya Grier MD - 07/13/2024 10:59 AM CST [facility] GI ENDOSCOPY Patient Name: Sixto Chakraborty Procedure Date: 07/13/2024 10:59 AM Date of : 1950 Admit Type: Outpatient Age: 73 Gender: Female Attending MD: Jaya Grier M.D. Room: [facility] ENDOSCOPY ROOM 06 Note Status: Finalized Procedure: [...] On: 07/13/2024 10:59 AM Recognized by the [employer] for promoting quality in endoscopy Jaya Grier MD ENDOSCOPY PROCEDURES Final Resul t * (ABNORMAL) POC Blood Gas and Chemistries, Venous - (07/13/2024 10:12 AM BENCH PRECISION ASSEMBLER) pH,chris POC 7.40 7.32 - 7.43 pCO2, chris POC 49 40 - 50 mmHg [facility] pO2,chris POC 36 mmHg [facility] Comment: Interpretive Data No reference range established. Current interpretive data was last revised 2020. HCO3, chris (Calc) POC 30 20 - 30 mmol/L [facility] Base excess, chris POC 4 mmol/L [facility] Comment: Interpretive Data No reference range established. Current interpretive data was last revised 2020. Hemoglobin, chris POC 13.9 11.9 - 15.5 g/dL [facility] Hematocrit, chris POC 41.0 35.6 - 45.5 % [facility] Sodium, chris POC 134(L) 135 - 145 mmol/L [facility] Potassium, chris POC 4.6 3.3 - 4.9 mmol/L [facility] Comment: Interpretive Data This method is not able to assess for hemolysis, which may falsely increase potassium concentrations. If further testing is needed to evaluate this result, consider in-laboratory plasma potassium. Current Interpretive Data was last revised on 2022. Glucose, chris POC 145 70 - 199 mg/dL [facility] Ionized Calcium, chris POC 4.70 4.50 - 5.10 mg/dL [facility] Blood 07/13/2024 10:1 2 AM BENCH PRECISION ASSEMBLER 07/13/2024 10:12 AM BENCH PRECISION ASSEMBLER Jaya Grier MD LAB POCT ORDERABLES - DEVICE Fin al Result [facility] [address] [facility] Department [place] [address] * (ABNORMAL) Troponin T high-sensitivity 2-hour (07/12/2024 1:59 PM BENCH PRECISION ASSEMBLER) Trop T hs 63(H) <=14 ng/L Comment: Interpretive Data For further hscTnT resources including the diagnostic algorithm and an aid in interpretation, copy and paste this link: https://nrl.testcatalog.org/show/hsTrop Current Interpretive Data last revised 2020. Testing performed by: [address] [address] Trop T hs delta -5 ng/L [facility] Comment:Testing performed by : [address] [address] Trop T hs interp Equivocal [facility] Comment:Testing performed by : [address] [address] Blood 07/12/2024 1:59 PM BENCH PRECISION ASSEMBLER 07/12/2024 2:20 PM BENCH PRECISION ASSEMBLER us Donna CUEVA LAB BLOOD ORDERABLES Final Re sult [facility] [address] [facility] Department [place] [address] * (ABNORMAL) Urinalysis reflex to microscopic and culture Urine (07/12/2024 1:05 PM BENCH PRECISION ASSEMBLER) Color, ur Mikayla Yellow Comment:Testing performed by : [address] [address] Clarity, ur Turbid(A) Clear [facility] Comment:Testing performed by : [address] [address] Specific gravity, ur 1.006 1.003 - 1.030 [facility] Comment:Testing performed by : [address] [address] pH, urine 6.0 [facility] Comment: Interpretive Data U rine pH is affected by diet, medications, systemic acid-base disturbances, and renal tubular function. pH may affect urinary stone formation. For example, urine pH below 6.0 may help reduce the tendency for calcium phosphate stones and pH greater than 6.0 may reduce the tendency for uric acid stone formation. Source: [facility] Macrotherapy Current Interpretive Data was last revised on 2017 Testing performed by: [address] [address] Protein, ur ql 2+(A) Negative NILSA Comment:Testing performed by : [address] [address] Glucose, ur ql 1+(A) Negative [facility] Comment:Testing performed by : [address] [address] Ketones, ur Negative Negative [facility] Comment:Testing performed by : [address] [address] Bilirubin, ur Negative Negative [facility] Comment:Testing performed by : [address], [place]., [address] Blood, ur 2+(A) Negative [facility] Comment:Testing performed by : [address] [address] Urobilinogen, ur <2.0 <2.0 mg/dL [facility] Comment:Testing performed by : [address] [address] Nitrite, ur Negative Negative [facility] Comment:Testing performed by : [address] [address] Leukocyte esterase, ur 4+(A) Negative [facility] Comment:Testing performed by : [address] [address] UA reflex comment Reflex to microscopic UA will be performed. [facility] Comment:Testing performed by : [address] [address] Urine 07/12/2024 1:05 PM BENCH PRECISION ASSEMBLER 07/12/2024 1:09 PM BENCH PRECISION ASSEMBLER us Donna CUEVA LAB MICROBIOLOGY - GENERAL OR DERABLES Final Result [facility] [address] [address] [facility] Department [place] [address] * Drugs of Abuse Screen, Urine without Confirmation (07/12/2024 1:05 PM BENCH PRECISION ASSEMBLER) [facility] Amphetamine, ur Not Detected CutOff 500ng/mL Comment: Interpretive Data - Amphetamines: Samples containing greater than 500 ng/mL d-methamphetamine or other cross-reacting amphetamine compounds are reported as positive. Amphetamine immunoassays are subject to significant false positive rates due to cross-reactivity of non-amphetamine drugs. Confirmatory testing required for definitive results. Current Interpretive Data was last reviewed 2023. Testing performed by: [address] [address] Barbiturates, ur Not Detected CutOff 200ng/mL [facility] Comment: Interpretive Data - Barbiturates: Samples containing greater than 200 ng/mL secobarbital or other cross-reacting barbiturate compounds are reported as positive. False positive and false negative results are possible. Confirmatory testing required for definitive results. Current Interpretive Data was last reviewed 2023. Testing performed by: [address] [address] Benzodiazepines, ur Not Detected CutOff 100ng/mL [facility] Comment: Interpretive Data - Benzodiazepines: Samples containing greater than 100 ng/mL nordiazepam or other cross-reacting compounds are reported as positive. False positive and false negative results are possible. Confirmatory testing required for definitive results. Current Interpretive Data was last reviewed 2023. Testing performed by: [address] [address] Cannabinoids, ur Not Detected CutOff 50 ng/mL [facility] Comment: Interpretive Data - Cannabinoids: Samples containing greater than 50 ng/mL delta-9 THC -COOH or other cross- reacting compounds are reported as positive. False positive and false negative results are possible. Confirmatory testing required for definitive results. Current Interpretive Data was last reviewed 2023. Testing performed by: [address] [address] Cocaine, ur Not Detected CutOff 150ng/mL [facility] Comment: Interpretive Data - Cocaine: Samples containing greater than 150 ng/mL benzoylecgonine or other cross- reacting compounds are reported as positive. False positive and false negative results are possible. Confirmatory testing required for definitive results. Current Interpretive Data was last reviewed 2023. Testing performed by: [address] [address] Fentanyl, Ur Not Detected Cutoff 1 ng/mL [facility] Comment: Interpretive Data - Fentanyl: Samples containing greater than 1 ng/mL fentanyl or other cross-reacting fentanyl compounds are reported as positive. False positive and false negative results are possible. Confirmatory testing required for definitive results. Current Interpretive Data was last reviewed 2023. Testing performed by: [address] [address] Methadone, ur Not Detected CutOff 300ng/mL [facility] Comment: Interpretive Data - Methadone: Samples containing greater than 300 ng/mL d,l-methadone or other cross-reacting compounds are reported as positive. False positive and false negative results are possible. Confirmatory testing required for definitive results. Current Interpretive Data was last reviewed 2023. Testing performed by: [address] [address] Opiates, ur Not Detected CutOff 300ng/mL [facility] Comment: Interpretive Data - Opiates: Samples containing greater than 300 ng/mL morphine or other cross-reacting compounds are reported as positive. False positive and false negative results are possible. Confirmatory testing required for definitive results. Current Interpretive Data was last reviewed 2023. Testing performed by: [address] [address] Oxycodone, ur Not Detected CutOff 100ng/mL [facility] Comment: Interpretive Data - Oxycodone: Samples containing greater than 100 ng/mL oxycodone or other cross-reacting compounds are reported as positive. False positive and false negative results are possible. Confirmatory testing required for definitive results. Current Interpretive Data was last reviewed 2023. Testing performed by: [address] [address] Phencyclidine, ur Not Detected CutOff 25 ng/mL [facility] Comment: Interpretive Data - Phencyclidine: Samples containing greater than 25 ng/mL phencyclidine or other cross-reacting compounds are reported as positive. False positive and false negative results are possible. Confirmatory testing required for definitive results. Current Interpretive Data was last reviewed 2023. Testing performed by: [address] [address] Urine Creatinine 74 mg/dL [facility] Comment: Interpretive Data Urine Creatinine: < 10 mg/dL is extremely dilute = or > 10 but < 20 mg/dL is dilute = or > 20 mg/dL is normal Current Interpretive Data was last revised on 2017. Testing performed by: [address] [address] Urine 07/12/2024 1:05 PM BENCH PRECISION ASSEMBLER 07/12/2024 1:09 PM BENCH PRECISION ASSEMBLER Narrative [facility] - 07/12/2024 1:31 PM BENCH PRECISION ASSEMBLER Drug of Abuse screening is performed by immunoassay for medical purposes only. This is not to be used for Pain Management purposes. [employer] [facility] LAB URINE ORDERABLES Final Re sult [facility] [address] [facility] Department of [place] [address] * (ABNORMAL) Urinalysis, microscopic only (07/12/2024 1:05 PM BENCH [employer]CISION ASSEMBLER) WBC, ur >50(A) 0 - 5 /HPF Comment:Testing performed by : [address] [address] RBC, ur 11-20(A) 0 - 2 /HPF NILSA Comment:Testing performed by : [address] [address] Bacteria, ur 4+(A) NILSA Comment:Testing performed by : [address] [address] Culture Reflex Comment Reflex to urine culture will be performed. NILSA Comment:Testing performed by : [address] [address] Urine 07/12/2024 1:05 PM [employer]CH [employer]CISION ASSEMBLER 07/12/2024 1:09 PM BENCH PRECISION ASSEMBLER [employer] PA LAB URINE ORDERABLES Final Re sult Performing Organization Address [facility] Co de Phone Number NILSA [address] [place] [address] * (ABNORMAL) Urine culture Urine (07/12/2024 1:05 PM BENCH PRECISION ASSEMBLER) Report Final Report: Greater than or equal to 100,000 colonies/mL of Escherichia coli (.) Comment:Testing performed by : [facility], [address] [place]., [address] Organism ESCHERICHIA COLI [facility] Urine 07/12/2024 1:05 PM [employer]ENCH [employer]CISION ASSEMBLER 07/12/2024 3:03 PM BENCH PRECISION ASSEMBLER Narrative [facility] - 07/14/2024 2:20 PM [employer]CISION ASSEMBLER Urine culture reflexed based upon urinalysis results. Testing performed by [facility] Microbiology Laboratory ([phone]) Organism Antibiotic Method Susceptibility Escherichia coli Ampicillin [...] OR DERABLES Final Result Performing Organization Address [facility] Co de Phone Number CARLOS ENRIQUE[address] Department [place] [address] * (ABNORMAL) Troponin T high-sensitivity series (baseline, 2hr, 4hr, 6hr) (07/12/2024 11:53 AM BENCH PRECISION ASSEMBLER) Trop T hs 68(H) <=14 ng/L Comment: REDRAW: HEMOLYZED SPECIMEN Interpretive Data For further hscTnT resources including the diagnostic algorithm and an aid in interpretation, copy and paste this link: https://nrl.testcatalog.org/show/hsTrop Current Interpretive Data last revised 2020. Testing performed by: [address] [address] Blood 07/12/2024 11:5 3 AM BENCH PRECISION ASSEMBLER 07/12/2024 11:58 AM BENCH PRECISION ASSEMBLER Donna CUEVA LAB BLOOD ORDERABLES Final Re sult NILSA [address] [facility] Department [place] [address] * Influenza A/B, RSV, and COVID-19 PCR Nasopharyngeal (07/12/2024 11:53 AM BENCH PRECISION ASSEMBLER) COVID-19 RNA Negative Negative Comment:Testing performed by : [address] [address] Influenza A RNA Negative Negative NILSA Comment:Testing performed by : [address] [address] Influenza B RNA Negative Negative [facility] Comment:Testing performed by : [address] [address] RSV RNA Negative Negative [facility] Comment: Interpretive data: Testing performed by [facility]. This test is performed using the [employer] Xpert Xpress CoV-2/Flu/RSV plus assay. This is a multiplex, real-time reverse transcriptase PCR assay intended for the qualitative detection of nucleic acid from SARS-CoV-2, influenza A, influenza B, and respiratory syncytial virus. This assay has been cleared by the [place] Food and Drug administration. The performance characteristics have been verified by the [facility]. Results must be considered in the clinical context, and a negative result does not rule out infection. Interpretive Data last revised 2023 Testing performed by: [address] [address] Nasopharyngeal 07/12/2024 11 :53 AM BENCH PRECISION ASSEMBLER 07/12/2024 11:58 AM BENCH PRECISION ASSEMBLER Narrative NILSA - 07/12/2024 12:38 PM BENCH PRECISION ASSEMBLER Is the Patient experiencing symptoms consistent with COVID?->Unknown Donna CUEVA LAB MICROBIOLOGY - GENERAL OR DERABLES Final Result Performing Organization Address [facility] Co de Phone Number NILSA [address] [facility] [place] [address] * (ABNORMAL) eGFR (07/12/2024 11:53 AM BENCH PRECISION ASSEMBLER) eGFR 10(L) >=60 mL/min/1. 73 m2 Comment: [...] was last reviewed 2021. Testing performed by: [address] [address] Blood 07/12/2024 11:5 3 AM BENCH PRECISION ASSEMBLER 07/12/2024 11:58 AM BENCH PRECISION ASSEMBLER Donna CUEVA LAB BLOOD ORDERABLES Final Re sult Performing Organization Address City/[facility]/ZIP Co de Phone Number NILSA [address] [facility] Department [place] [address] * (ABNORMAL) Differential, auto (07/12/2024 11:53 AM BENCH PRECISION ASSEMBLER) Neutrophil abs 9.2(H) 1.5 - 6.5 K/cumm Comment:Testing performed by : [address] [address] Imm gran abs 0.1 0.0 - 0.1 K/cumm [facility] Comment:Testing performed by : [address] [address] Lymphocyte abs 1.5 0.8 - 3.3 K/cumm [facility] Comment:Testing performed by : [address] [address] Monocyte abs 0.5 0.2 - 0.8 K/cumm [facility] Comment:Testing performed by : [address] [address] Eosinophil abs 0.1 0.0 - 0.5 K/cumm [facility] Comment:Testing performed by : [address] [address] Basophil abs 0.0 0.0 - 0.1 K/cumm [facility] Comment:Testing performed by : [address] [address] Neutrophil pct 81.0 % [facility] Comment: Interpretive Data Percent cell count reference ranges are not reported, since discordance with absolute values may lead to misinterpretation of CBC data. Current Interpretive Data was last revised on 2017. Testing performed by: [address] [address] Imm gran pct 0.4 % [facility] Comment: Interpretive Data Percent cell count reference ranges are not reported, since discordance with absolute values may lead to misinterpretation of CBC data. Current Interpretive Data was last revised on 2017. Testing performed by: [address] [address] Lymphocyte pct 13.4 % [facility] Comment: Interpretive Data Percent cell count reference ranges are not reported, since discordance with absolute values may lead to misinterpretation of CBC data. Current Interpretive Data was last revised on 2017. Testing performed by: [address] [address] Monocyte pct 4.2 % [facility] Comment: Interpretive Data Percent cell count reference ranges are not reported, since discordance with absolute values may lead to misinterpretation of CBC data. Current Interpretive Data was last revised on 2017. Testing performed by: [address] [address] Eosinophil pct 0.6 % NILSA Comment: Interpretive Data Percent cell count reference ranges are not reported, since discordance with absolute values may lead to misinterpretation of CBC data. Current Interpretive Data was last revised on 2017. Testing performed by: [address] [address] Basophil pct 0.4 % NILSA Comment: Interpretive Data Percent cell count reference ranges are not reported, since discordance with absolute values may lead to misinterpretation of CBC data. Current Interpretive Data was last revised on 2017. Testing performed by: [address] [address] Blood 07/12/2024 11:5 3 AM BENCH PRECISION ASSEMBLER 07/12/2024 11:58 AM BENCH PRECISION ASSEMBLER Donna Zac PA LAB BLOOD ORDERABLES Final Re sult Performing Organization Address City/[facility] Co de Phone Number [address] Walk[place]in [place] [address] * Thyroid Function [place] (07/12/2024 11:53 AM BENCH PRECISION ASSEMBLER) Pathologist [facility] TSH 1.22 0.30 - 4.20 mcIUnit/mL Comment:Testing performed by : [address] [address] Blood 07/12/2024 11:5 3 AM BENCH PRECISION ASSEMBLER 07/12/2024 11:58 AM BENCH PRECISION ASSEMBLER [employer] PA LAB BLOOD ORDERABLES Final Re sult Performing Organization Address City/[facility]/ZIP Co de Phone Number [address] [place] [address] * (ABNORMAL) CBC with auto differential (07/12/2024 11:53 AM BENCH PRECISION ASSEMBLER) WBC 11.3(H) 3.8 - 9.9 K/cumm Comment:Testing performed by : [address] [address] Hgb 12.3 11.9 - 15.5 g/dL NILSA Comment:Testing performed by : [address] [address] Hct 37.2 35.6 - 45.5 % NILSA Comment:Testing performed by : [address] [address] Plt 230 150 - 400 K/cumm NILSA Comment:Testing performed by : [address] [address] MPV 10.7 9.1 - 12.3 fL NILSA Comment:Testing performed by : [address] [address] RBC 3.85(L) 3.90 - 5.20 M/cumm NILSA Comment:Testing performed by : [address] [address] MCV 96.6(H) 81.3 - 96.4 fL NILSA Comment:Testing performed by : [address] [address] MCH 31.9 27.1 - 33.3 pg NILSA Comment:Testing performed by : [address] [address] MCHC 33.1 32.3 - 35.7 g/dL NILSA Comment:Testing performed by : [address] [address] RDW CV 15.7(H) 11.1 - 14.9 % NILSA Comment:Testing performed by : [address] [address] RDW SD 55.5(H) 35.7 - 48.1 fL NILSA Comment:Testing performed by : [address] [address] NRBC abs 0.00 0.00 - 0.01 K/cumm NILSA Comment:Testing performed by : [address] [address] Blood 07/12/2024 11:5 3 AM BENCH [employer]CISION ASSEMBLER 07/12/2024 11:58 AM BENCH PRECISION ASSEMBLER us Donna CUEVA LAB BLOOD ORDERABLES Final Re sult NILSA RODRIGES [address] [facility] Department [place] [address] * (ABNORMAL) Comprehensive metabolic panel (07/12/2024 11:53 AM BENCH PRECISION ASSEMBLER) Sodium 134(L) 135 - 145 mmol/L Comment:Testing performed by : [address] [address] Potassium, pl 4.6 3.3 - 4.9 mmol/L NILSA Comment: HEMOLYZED: Hemolysis interferes with the above test. Testing performed by: [address] [address] Chloride 93(L) 97 - 110 mmol/L NILSA Comment:Testing performed by : [address] [address] CO2 28 22 - 32 mmol/L NILSA Comment:Testing performed by : [address] [address] Anion gap 13 2 - 15 mmol/L NILSA Comment:Testing performed by : [address] [address] BUN 33(H) 6 - 25 mg/dL NILSA Comment:Testing performed by : [address] [address] Creatinine 4.60(H) 0.60 - 1.10 mg/dL NILSA Comment:Testing performed by : [address] [address] Glucose 177 70 - 199 mg/dL NILSA [...] last revised 2022. Testing performed by: [address] [address] Calcium 9.5 8.5 - 10.3 mg/dL NILSA Comment:Testing performed by : [address] [address] Bilirubin, total 0.4 0.1 - 1.2 mg/dL [facility] Comment:Testing performed by : [address] [address] Protein, pl 8.2 6.5 - 8.5 g/dL [facility] Comment:Testing performed by : [address] [address] Albumin 3.9 3.5 - 5.0 g/dL [facility] Comment:Testing performed by : [address] [address] Alk phos 95 40 - 130 Units/L [facility] Comment:Testing performed by : [address] [address] ALT 24 7 - 45 Units/L [facility] Comment: HEMOLYZED: Hemolysis interferes with the above test. Testing performed by: [address] [address] AST 26 10 - 45 Units/L [facility] Comment: HEMOLYZED: Hemolysis interferes with the above test. Testing performed by: [address] [address] Blood 07/12/2024 11:5 3 AM BENCH PRECISION ASSEMBLER 07/12/2024 11:58 AM BENCH PRECISION ASSEMBLER us Donna CUEVA LAB BLOOD ORDERABLES Final Re sult NILSA RODRIGES [address] [facility] Department [place] [address] * ECG 12 lead (07/12/2024 11:48 AM BENCH PRECISION ASSEMBLER) Ventricular Rate EKG/Min 77 BPM [facility] Atrial Rate 77 BPM [facility] [place]-Interval (MSEC) 154 ms [facility] QRS-Interval (MSEC) 66 ms [facility] QT-Interval (MSEC) 412 ms [facility] QTc 466 ms [facility] P [place] 72 degrees [facility] R [place] 6 degrees [facility] T [place] 62 degrees [facility] Diagnosis Normal sinus rhythm Normal ECG When compared with ECG of 21-APR-2024 10:35, No significant change was found Confirmed by DIAMOND GUTIERREZ M.D. ([id number]) on 07/13/2024 9:26:23 PM [facility] 07/12/2024 11:4 8 AM BENCH PRECISION ASSEMBLER 07/13/2024 9:26 PM BENCH PRECISION ASSEMBLER us Donna CUEVA ECG ORDERABLES Final Result [facility] * CT Cervical Spine WO Contrast (07/12/2024 10:38 AM BENCH PRECISION ASSEMBLER) Anatomical Region Laterality Modality Spine N/A Computed Tomogra phy 07/12/2024 11:0 8 AM BENCH PRECISION ASSEMBLER Narrative 07/12/2024 11:13 AM BENCH PRECISION ASSEMBLER EXAM DESCRIPTION: CT CERVICAL SPINE WO CONTRAST [...] Wally Hernandez M.D. RB: AMADA Report ID: [id number] Reading Location: [id number] Procedure Note Wally Hernandez MD - 07/12/2024 [...] Wally Hernandez M.D. RB: AMADA Report ID: [id number] Reading Location: [id number] Donna CUEVA IMG CT PROCEDURES Final Resul t * CT Facial Bones WO Contrast (07/12/2024 10:38 AM BENCH PRECISION ASSEMBLER) Anatomical Region Laterality Modality Head and Neck N/A Computed Tomogra phy 07/12/2024 11:0 3 AM BENCH PRECISION ASSEMBLER Narrative 07/12/2024 11:08 AM BENCH PRECISION ASSEMBLER EXAM DESCRIPTION: CT FACIAL BONES WO CONTRAST [...] Wally Hernandez M.D. RB: AMADA Report ID: [id number] Reading Location: [id number] Procedure Note Wally Hernandez MD - 07/12/2024 [...] Wally Hernandez M.D. RB: AMADA Report ID: [id number] Reading Location: [id number] Donna MERIDA CT PROCEDURES Final Resul t * CT Head WO Contrast (07/12/2024 10:38 AM BENCH PRECISION ASSEMBLER) Anatomical Region Laterality Modality Head and Neck N/A Computed Tomogra phy 07/12/2024 10:5 9 AM BENCH PRECISION ASSEMBLER Narrative 07/12/2024 11:03 AM BENCH PRECISION ASSEMBLER EXAM DESCRIPTION: CT HEAD WO CONTRAST REASON [...] Wally Hernandez M.D. RB: AMADA Report ID: [id number] Reading Location: [id number] Procedure Note Wally Hernandez MD - 07/12/2024 [...] 11:03 AM - Electronically signed by Wally Hernnadez M.D. RB: RB Report ID: [id number] Reading Location: [place] [address] PROCEDURES Final Resul t * XR Shoulder Right 2 or More Views (07/12/2024 10:08 AM BENCH PRECISION ASSEMBLER) Anatomical Region Laterality Modality Upper Extremities, Shoulder Right Comp uted Radiography 07/12/2024 10:1 4 AM BENCH PRECISION ASSEMBLER Narrative 07/12/2024 10:15 AM BENCH PRECISION ASSEMBLER EXAM DESCRIPTION: XR SHOULDER RIGHT 2 OR [...] Wally Hernandez M.D. RB: RB Report ID: [id number] Reading Location: [id number] Procedure Note Wally Hernandez MD - 07/12/2024 [...] Wally Hernandez M.D. RB: AMADA Report ID: [id number] Reading Location: [id number] Julio Landeros DO IMG XR PROCEDURES Final Result * XR Shoulder Left 2 or More Views (07/12/2024 10:08 AM BENCH PRECISION ASSEMBLER) Anatomical Region Laterality Modality Upper Extremities, Shoulder Left Comp uted Radiography 07/12/2024 10:1 3 AM BENCH PRECISION ASSEMBLER Narrative 07/12/2024 10:14 AM BENCH PRECISION ASSEMBLER EXAM DESCRIPTION: XR SHOULDER LEFT 2 OR [...] Wally Hernandez M.D. RB: AMADA Report ID: [id number] Reading Location: [id number] Procedure Note Wally Hernandez MD - 07/12/2024 [...] Wally Hernandez M.D. RB: AMADA Report ID: [id number] Reading Location: [id number] Julio Landeros DO IMG XR PROCEDURES Final Result * POCT glucose (07/12/2024 9:33 AM BENCH PRECISION ASSEMBLER) Glucose, POC 164 70 - 199 mg/dL Comment:Testing performed by : [address] [address] Glucose comment 1 Use This Result NILSA RODRIGES Comment:Testing performed by : [address] [address] Blood 07/12/2024 9:33 AM BENCH PRECISION ASSEMBLER 07/12/2024 9:33 AM BENCH PRECISION ASSEMBLER us Notinfile Unknown LAB POCT ORDERABLES - DEVICE F inal Result NILSA [address] [facility] Department [place] [address] * Lipid panel (05/16/2024 10:14 AM BENCH PRECISION ASSEMBLER) Cholesterol 160 30 - 199 mg/dL Comment: [...] DIAS Blood 05/16/2024 10:1 4 AM BENCH PRECISION ASSEMBLER 05/16/2024 10:50 AM BENCH PRECISION ASSEMBLER Narrative NILSA DIAS - 05/16/2024 11:23 AM BENCH PRECISION ASSEMBLER These lab test should be done fasting. This means do not eat or drink for at least 12 hours prior to getting your blood drawn. Smith Gibbs MD LAB BLOOD ORDERABLES Final R esult [facility] [address] [facility]. Department of Laboratories [place], [place] [id number] * Colonoscopy (03/01/2024 8:49 AM CDT) Anatomical Region Laterality Modality Other Narrative Procedure Note Jaya Grier MD - 03/01/2024 8:49 AM CDT [facility] GI ENDOSCOPY Patient Name: Sixto Banksgers Procedure Date: 03/01/2024 8:49 AM Date of : 1950 Admit Type: Outpatient Age: 73 Gender: Female Attending MD: Jaya Grier M.D. Room: [facility] ENDOSCOPY ROOM 06 Note Status: Finalized Procedure: [...] The scope was passed under direct vision.The [id number] colonoscope was introduced through theanus and advanced [...] On: 03/01/2024 8:49 AM Recognized by the [employer] for promoting quality [...] taking vitamin-D. History of end-stage renal disease. Classification Inspector/Model: Bill Me Later A (S/N [id number]) CLINICAL INFORMATION: Current height: 61 inches Maximum [...] Rafaela Paulino M.D. TW: TW Report ID: [id number] Reading Location: [place] [address] Procedure Note Rafaela Paulino MD - 01/22/2024 EXAM DESCRIPTION: DEXA AXIAL SKELETON BONE DENSITY 1 OR MORE SITES REASON FOR STUDY: 73 y/o year old F with given history of: Post menopausal status. History of taking vitamin-D. History of end-stagerenal disease. Classification Inspector/Model: Bill Me Later A (S/N [id number]) CLINICAL INFORMATION: Current height: 61 inches Maximum [...] Rafaela Paulino M.D. TW: TW Report ID: [id number] Reading Location: [place] [address] us Cherelle Corcoran MD IMDiaz DXA PROCEDURE S [...] age 40, based on guidelines of the [employer] (ACR Practice Parameter for the Performance of Screening and Diagnostic Mammography) and [employer]. For women [...] Hep B core IgM Nonreactive Nonreactive [facility] Comment: Interpretive Data If HepB Core IgM [...] last revised on 2019. HepBsAg Nonreactive Nonreactive [facility] Blood 10/15/2023 6:50 AM CDT 10/15/2023 7:07 AM CDT Jimbo Strauss MD LAB MICROBIOLOGY - [facility] Final Result [facility] [address] [address] Department of Laboratories [place], [place] [id number] * (ABNORMAL) Albumin Creatinine Ratio, Urine (10/10/2022 11:39 AM CDT) Albumin Ur 3,240.2 mg/L NILSA Comment: Interpretive Data No reference range established. Current interpretive data was last revised 2018. Testing performed by: [address] [address] Creatinine Ur 74.8 mg/dL NILSA Comment: Interpretive Data No reference range established. Current interpretive data was last revised 2018. Testing performed by: [address] [address] Albumin Creatinine Ratio, Ur 4,332(H) 1 - 29 mg/g NILSA Comment:Testing performed by : [address] [address] Urine 10/10/2022 11:3 9 AM CDT 10/10/2022 1:45 PM CDT us Markie Ryan MD LAB URINE ORDERABLES Final Re sult NILSA [address] [facility] Department [place] [address] from Last 3 Months or Most Recently Relevant to Health Maintenance
--- OUTSIDE RECORDS SUMMARY | 2024-09-21 14:57 | XMS_ITS | Clinical Summary ---
Author Organization [facility] Address [address] [place] [address] Care Team Providers Care Application Architect Manager Name Role Phone Cherelle Corcoran MD Primary Care Pro vider QueenMark Perez MD Unavailable [phone] Rudolph Welch MD Unavailable [phone] Markie Ryan MD Unavailable Jimbo Strauss MD Unavailable [phone] Jaya Grier MD Unavailable Edgardo Kauffman MD Unavailable [phone] Allergies No known active allergies Medications lidocaine (ASPERCREME) 4 % adhesive patch,medicated Place 1 patch on the skin daily as needed to lower back Active polyethylene glycol (MIRALAX) 17 gram/dose bulk powder Take 17 g by mouth daily as needed (Constipation) 595 g 024 Active FreeStyle Madhav 3 [facility] [place] [...] by other route daily 100 strip 3 01/17/2 025 Active blood-glucose sensor (FreeStyle Madhav 3 Plus Sensor) deviceIndications :Type 2 diabetes mellitus with diabetic nephropathy, with long-term current use of insulin ([facility]) Use to continually monitor glucose, change sensor [...] long-term current use of insulin ([facility]) Use Madhav 3 reader to scan Madhav [...] Hyperlipidemia associated with type 2 diabetes m maryamitus 07/07/2024 Assessment & Plan (07/14/2024 2:30 PM DIRECTOR OF ENTERPRISE APPLICATIONS): Continue Lipitor Assessment & Plan (07/14/2024 8:56 AM DIRECTOR OF ENTERPRISE APPLICATIONS): Ok to restart atorvastatin, but also given [...] 11/02/2023 Assessment & Plan (07/14/2024 2:39 PM DIRECTOR OF ENTERPRISE APPLICATIONS): Patient is needing a Perma catheter exchange [...] proceed. Assessment & Plan (07/14/2024 8:51 AM DIRECTOR OF ENTERPRISE APPLICATIONS): Following with nephrology Assessment & Plan (01/06/2024 12:53 PM CDT): History of ESRD on HD Thu//Sat. Missed [...] 10/30/2023 Assessment & Plan (05/06/2024 7:49 AM DIRECTOR OF ENTERPRISE APPLICATIONS): Reviewed hospital discharge summary Now resolved Upcoming [...] stable Assessment & Plan (07/24/2023 1:51 PM DIRECTOR OF ENTERPRISE APPLICATIONS): Chronic/stable Parkinsonism 08/14/2022 Assessment & Plan (07/14/2024 8:54 AM DIRECTOR OF ENTERPRISE APPLICATIONS): Following with neurology, recommend reaching out to them in regards to restarting benztropine. Consider waiting until after restarts other medications given daughter reports tremors controlled off benztropine currently Assessment & Plan (11/10/2023 4:43 PM CDT): Following with neurology On cogentin Assessment & Plan (07/24/2023 1:50 PM DIRECTOR OF ENTERPRISE APPLICATIONS): Following with neurology On cogentin twice a day Assessment & Plan (01/23/2023 9:20 AM CDT): Following with neurology On cogentin twice a day Assessment & Plan (10/10/2022 10:41 AM CDT): Following with neurology On cogentin Assessment & Plan (08/14/2022 10:46 AM DIRECTOR OF ENTERPRISE APPLICATIONS): Following with neurology, reviewed note On cogentin [...] a walker. - PT/OT recommends SNF. -Plan [facility] on 11/26 ? Assessment & Plan (11/24/2021 2:07 PM CDT): Deconditioning 2/2 prolonged hospitalization. Daughter reports that prior to her illness, she was independent with a walker. - PT/OT recommends SNF. -Plan [facility] on 11/25. Assessment & Plan (11/23/2021 12:24 PM CDT): Deconditioning 2/2 prolonged hospitalization. Daughter reports that prior to her illness, she was independent with a walker. - PT/OT recommends SNF. -Plan [facility] on 11/25. Assessment & Plan (11/22/2021 1:34 PM CDT): Deconditioning 2/2 prolonged hospitalization. Daughter reports that prior to her illness, she was independent with a walker. - PT/OT recommends SNF. -Plan [facility] on 11/25. Assessment & [...] care Assessment & Plan (08/14/2022 10:47 AM DIRECTOR OF ENTERPRISE APPLICATIONS): Following with podiatry Assessment & Plan (04/02/2022 [...] - renal consulted regarding volume management, possible exterminator termite dialysis planning, expedite OP f/u. Serologies and urine studies ordered. ED neg, compliments neg, cryoglobulin pending, ANCA pending, HIV neg. Continued -Added metolazone 2.5mg/daily per renal 09/13- with improving swelling, Cr bump to 2.33 so held further -Transitioned to PO agents prior to DC (09/17) with ongoing clinical improvement. Goal weight 155lbs -Home with family at [place], estate planning paralegal consulted to review salt restrictions. -outpatient BMP, [...] - renal consulted regarding volume management, possible detention dialysis planning, expedite OP f/u. Serologies and urine studies ordered. ED neg, compliments neg, cryoglobulin pending, ANCA pending, HIV neg. Continued -Added metolazone 2.5mg/daily per renal 09/13- with improving swelling, Cr bump to 2.33 so held further -Anticipate likely transition to PO agents prior to DC (?09/17) with ongoing clinical improvement. Goal weight 155lbs -Home with family at NH, estate planning paralegal consulted to review salt restrictions. Assessment & [...] - renal consulted regarding volume management, possible exterminator termite dialysis planning, expedite OP f/u. Serologies and urine studies ordered. -Added metolazone 2.5mg/daily per renal. -Anticipate likely transition to PO agents prior to DC with ongoing clinical improvement. Goal weight 145-150lbs -Home with family at NH, estate planning paralegal consulted to review salt restrictions. Assessment & [...] - renal consulted regarding volume management, possible detention dialysis planning, expedite OP f/u. Serologies and [...] - renal consulted regarding volume management, possible exterminator termite dialysis planning, expedite OP f/u. Serologies and [...] - renal consulted regarding volume management, possible exterminator termite dialysis planning, expedite OP f/u. Assessment & [...] net neg 1/2-1L/day. -consider renal consult regarding exterminator termite dialysis planning, expedite OP f/u. Assessment & [...] net neg 1/2-1L/day. -consider renal consult regarding exterminator termite dialysis planning. Assessment & Plan (09/06/2021 10:28 [...] 08/19/2021 Assessment & Plan (07/14/2024 8:53 AM DIRECTOR OF ENTERPRISE APPLICATIONS): Following with neurology Assessment & Plan (01/05/2024 10:40 PM CDT): Follows with neurology. -continue risperidone 2mg QHS -continue benztropine 2mg daily Assessment & Plan (11/10/2023 4:37 PM CDT): Following with neurology Assessment & Plan (07/24/2023 1:50 PM DIRECTOR OF ENTERPRISE APPLICATIONS): Following with neurology Assessment & Plan (01/23/2023 9:18 AM CDT): Following with neurology Assessment & Plan (10/10/2022 10:37 AM CDT): Following with neurology, ordered MRI, # given to son to schedule Assessment & Plan (06/09/2022 3:37 PM DIRECTOR OF ENTERPRISE APPLICATIONS): Needs to reschedule with neurology Looking into fdc, but declined for [facility] for schizoaffective disorder Assessment & Plan (01/14/2022 9:05 AM CDT): Following with psychiatry Assessment & Plan (09/03/2021 3:28 PM CDT): Chronic, stable. Alert, oriented to self, current place. Continue to monitor. Clock drawing test at next interval. Consideration for Aricept. Encounter for Medicare annual wellness exam 12/21 Assessment & Plan (11/10/2023 4:42 PM CDT): Reviewed [facility] & PHQ Screening PHQ-2 Total Score (If total score is 3 or more points, staff should administer the PHQ-9): 2 Hearing/vision screening reviewed, referrals placed as needed Fall risk reviewed Reviewed medications and supplements Specialists: endocrine, nephrology, cardiology, neurology, psychiatry evidence of cognitive impairment HCM: orders placed as needed Assessment & Plan (06/09/2022 3:37 PM DIRECTOR OF ENTERPRISE APPLICATIONS): Reviewed [facility] & PHQ Screening PHQ-2 Total [...] type Assessment & Plan (08/18/2024 8:44 AM DIRECTOR OF ENTERPRISE APPLICATIONS): Chronic, stable. Does not report any stephanie [...] discussed. Assessment & Plan (07/14/2024 8:54 AM DIRECTOR OF ENTERPRISE APPLICATIONS): Following with psychiatry, recommend reaching out to [...] psychiatry Assessment & Plan (07/24/2023 1:50 PM DIRECTOR OF ENTERPRISE APPLICATIONS): Following with psychiatry Assessment & Plan (01/23/2023 [...] discussed. Assessment & Plan (08/09/2021 5:42 AM DIRECTOR OF ENTERPRISE APPLICATIONS): Following with psychiatry Assessment & Plan (08/07/2021 3:28 PM DIRECTOR OF ENTERPRISE APPLICATIONS): Chronic condition, switch to Haldol and has had multiple different problems including acute kidney failure in infectious process. Records not available at outside hospital-[facility]. Confounded by delirium. Currently experiencing delirium will discontinue Haldol and return to Risperdal as previously taking. Risperdal was discontinued due to poorly-controlled diabetes. Monitor in 1 to 2 weeks. Assessment & Plan (07/03/2021 7:24 AM DIRECTOR OF ENTERPRISE APPLICATIONS): Following with psychiatry D/c risperidone, started on haldol Assessment & Plan (07/01/2021 9:16 PM DIRECTOR OF ENTERPRISE APPLICATIONS): Chronic, stable. 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 The patient previously lived on her own and was observed to be hoarding. See additional problems-dementia. Evaluate again in 1 month after starting Risperdal. Iron deficiency anemia 04/02/2020 Assessment & Plan (05/06/2024 7:51 AM DIRECTOR OF ENTERPRISE APPLICATIONS): Recommend discussing IV iron with nephrology Assessment & Plan (10/02/2020 4:35 PM CDT): Continue iron Assessment & Plan (05/28/2020 1:51 PM DIRECTOR OF ENTERPRISE APPLICATIONS): Iron levels recently normalized, but still anemic, repeat today Assessment & Plan (04/16/2020 11:45 AM CDT): Recent iron within normal limits, H/H improving, continue supplementation until normalized Gastroesophageal reflux disease without esophagi tis 04/02/2020 Assessment & Plan (07/14/2024 8:56 AM DIRECTOR OF ENTERPRISE APPLICATIONS): Restart protonix Upcoming EGD Assessment & Plan (01/05/2024 10:40 PM CDT): -continue famotidine Assessment & Plan (10/02/2020 4:35 PM CDT): Continue omeprazole Assessment & Plan (07/24/2020 2:06 PM DIRECTOR OF ENTERPRISE APPLICATIONS): Recurrent symptoms off omeprazole, restart Assessment & Plan (05/28/2020 1:51 PM DIRECTOR OF ENTERPRISE APPLICATIONS): Iron levels recently normalized, but still anemic, repeat today Assessment & Plan (04/02/2020 1:26 PM CDT): Start PPI History of amputation of toe 01/19/2020 Assessment & Plan (01/08/2021 3:50 PM CDT): Stable Assessment & Plan (10/02/2020 4:35 PM CDT): Stable Assessment & Plan (04/30/2020 1:00 PM DIRECTOR OF ENTERPRISE APPLICATIONS): Stable Assessment & Plan (02/14/2020 5:15 PM CDT): Healing well Following with surgeon/wound clinic Assessment & Plan (01/19/2020 5:17 PM CDT): Has home health Following with vascular Hypertension associated with diabetes 12/13/2019 Assessment & Plan (07/14/2024 2:32 PM DIRECTOR OF ENTERPRISE APPLICATIONS): Continue carvedilol, hydralazine Assessment & Plan (07/14/2024 8:51 AM DIRECTOR OF ENTERPRISE APPLICATIONS): BP controlled today off medication Daughter reports nephrology said could restart medication, is planning to restart coreg first and monitor blood pressure prior to restarting nifedipine/hydralazine Assessment & Plan (05/06/2024 7:48 AM DIRECTOR OF ENTERPRISE APPLICATIONS): BP controlled Continue nifedipine, hold prior to [...] admission at [facility] with initiation of hydralazine and nifedipine in [...] amlodipine Assessment & Plan (08/03/2023 4:02 PM DIRECTOR OF ENTERPRISE APPLICATIONS): BP uncontrolled Start 5mg amlodipine Assessment & Plan (07/24/2023 1:49 PM DIRECTOR OF ENTERPRISE APPLICATIONS): Blood pressure borderline today off medications Assessment & Plan (01/23/2023 9:18 AM CDT): Blood pressure borderline low today, asymptomatic Checking labs Advised to decrease amlodipine to 5mg and monitor blood pressure Assessment & Plan (10/10/2022 10:50 AM CDT): Continue coreg 6.25mg twice a day & 40mg valsartan Assessment & Plan (08/14/2022 10:43 AM DIRECTOR OF ENTERPRISE APPLICATIONS): Blood pressure at goal, continue coreg 6.25mg twice a day Assessment & Plan (06/09/2022 3:32 PM DIRECTOR OF ENTERPRISE APPLICATIONS): Blood pressure at goal, continue coreg 3.125mg [...] day Assessment & Plan (08/05/2021 10:35 AM DIRECTOR OF ENTERPRISE APPLICATIONS): Blood pressure at goal Increase amlodipine to 10mg & d/c hydralazine per cardiology Assessment & Plan (05/28/2021 4:59 PM DIRECTOR OF ENTERPRISE APPLICATIONS): Blood pressure above goal, but previously within [...] lisinopril Assessment & Plan (08/28/2020 12:12 PM DIRECTOR OF ENTERPRISE APPLICATIONS): Blood pressure at goal Continue lisinopril Assessment & Plan (07/24/2020 2:05 PM DIRECTOR OF ENTERPRISE APPLICATIONS): Blood pressure at goal Continue lisinopril Assessment & Plan (05/28/2020 1:50 PM DIRECTOR OF ENTERPRISE APPLICATIONS): BP borderline Continue 10mg lisinopril Continue to monitor Assessment & Plan (04/30/2020 12:32 PM DIRECTOR OF ENTERPRISE APPLICATIONS): BP borderline Continue 10mg lisinopril Continue to [...] 08/30/2019 Assessment & Plan (07/14/2024 2:31 PM DIRECTOR OF ENTERPRISE APPLICATIONS): Controlled. Continue as per Endocrine and PCP Assessment & Plan (07/14/2024 8:50 AM DIRECTOR OF ENTERPRISE APPLICATIONS): Following with endocrine, reviewed note Holding insulin [...] +SSI Assessment & Plan (07/24/2023 1:49 PM DIRECTOR OF ENTERPRISE APPLICATIONS): Lab Results Component Value Date HGBA1C 8.1 [...] trulicity Assessment & Plan (08/14/2022 10:42 AM DIRECTOR OF ENTERPRISE APPLICATIONS): Following with endocrine Continue lantus, 12 units humalog TIDAC & 1.5mg trulicity Assessment & Plan (06/09/2022 3:32 PM DIRECTOR OF ENTERPRISE APPLICATIONS): Following with endocrine Home blood sugar at [...] for strict med oversight by family at NH reviewed with daughter this admit. Assessment & [...] for strict med oversight by family at NH reviewed with daughter this admit. Assessment & [...] and nephropathy. Med oversight by family at NH. Assessment & Plan (09/14/2021 12:22 PM CDT): [...] as she had discussed this with outpatient expeller worker - repeat A1c - resume home statin, not currently on feliciano due to kidney function Assessment & Plan (08/05/2021 10:35 AM DIRECTOR OF ENTERPRISE APPLICATIONS): Continue 15 units lantus twice a day Assessment & Plan (07/03/2021 7:24 AM DIRECTOR OF ENTERPRISE APPLICATIONS): Fasting blood sugar significantly improved Risperidone changed Continue current meds Continue to monitor Assessment & Plan (06/18/2021 11:22 AM DIRECTOR OF ENTERPRISE APPLICATIONS): Increase lantus to 60 units nightly, if blood sugar still above goal after 1 week split into 33 units twice a day Follow up with blood sugar via portal in 2 weeks Continue jardiance 25mg Continue trulicity 4.5mg weekly Assessment & Plan (05/28/2021 4:58 PM DIRECTOR OF ENTERPRISE APPLICATIONS): Increase lantus to 55 units nightly Continue [...] weekly Assessment & Plan (08/28/2020 1:00 PM DIRECTOR OF ENTERPRISE APPLICATIONS): DM Care Plan: Meds: Lantus - continue [...] recheck Assessment & Plan (07/24/2020 2:05 PM DIRECTOR OF ENTERPRISE APPLICATIONS): Formulary change 2/2 insurance, switched to trulicity. Will increase to 1.5mg Assessment & Plan (05/28/2020 1:50 PM DIRECTOR OF ENTERPRISE APPLICATIONS): Check a1c Sixto isn't checking blood sugar regularly, but when she is she has several >200 so I lean towards increasing if a1c>7 Assessment & Plan (04/30/2020 12:31 PM DIRECTOR OF ENTERPRISE APPLICATIONS): Blood sugar improved on 40 units basaglar [...] was in the room. Recently treated at [facility] for PNA with prolonged course of [...] was in the room. Recently treated at [facility] for PNA with prolonged course of [...] was in the room. Recently treated at [facility] for PNA with prolonged course of [...] was in the room. Recently treated at [facility] for PNA with prolonged course of [...] was in the room. Recently treated at [facility] for PNA with prolonged course of [...] was in the room. Recently treated at [facility] for PNA with prolonged course of [...] was in the room. Recently treated at [facility] for PNA with prolonged course of [...] was in the room. Recently treated at [facility] for PNA with prolonged course of [...] was in the room. Recently treated at [facility] for PNA with prolonged course of [...] was in the room. Recently treated at [facility] for PNA with prolonged course of [...] 11/10/2023 Assessment & Plan (08/14/2022 10:44 AM DIRECTOR OF ENTERPRISE APPLICATIONS): Continue eliquis Assessment & Plan (06/09/2022 3:36 PM DIRECTOR OF ENTERPRISE APPLICATIONS): Continue eliquis Assessment & Plan (04/02/2022 6:05 [...] 10/10/2022 Assessment & Plan (08/07/2021 3:30 PM DIRECTOR OF ENTERPRISE APPLICATIONS): Subacute, persistent, hospitalized recently. She is alert [...] Patient recently had MRI performed at [facility] which revealed acute osteomyelitis to the [...] 08/28/2020 Assessment & Plan (05/28/2020 1:52 PM DIRECTOR OF ENTERPRISE APPLICATIONS): Encouraged to follow up with wound clinic for reassessment Assessment & Plan (04/30/2020 12:31 PM DIRECTOR OF ENTERPRISE APPLICATIONS): Following with wound clinic Assessment & Plan [...] acute osteomyelitis on recent MRI performed at [facility]. She is being treated with antibiotic [...] nightly Assessment & Plan (08/14/2022 10:42 AM DIRECTOR OF ENTERPRISE APPLICATIONS): Continue lyrica 150mg nightly Assessment & Plan (06/09/2022 3:32 PM DIRECTOR OF ENTERPRISE APPLICATIONS): Continue lyrica 150mg nightly Assessment & Plan [...] status. Assessment & Plan (05/28/2021 4:58 PM DIRECTOR OF ENTERPRISE APPLICATIONS): Continue lyrica 150mg nightly Assessment & Plan [...] gabapentin Assessment & Plan (08/28/2020 1:00 PM DIRECTOR OF ENTERPRISE APPLICATIONS): On gabapentin Assessment & Plan (07/24/2020 2:05 PM DIRECTOR OF ENTERPRISE APPLICATIONS): Continue gabapentin Assessment & Plan (04/02/2020 1:22 [...] Encounters Date Type Department Care Team Description 09/22/19 25 Nurse Triage [facility] Primary Care at [address] [place] [address] Cherelle Corcoran MD 09/15/19 25 Results Follow-Up [facility] Gastroenterology at [address] [place] [address] Jaya Grier MD 09/14/19 9:19 AM CDT Anesthesia Event [facility] GI Lab [address] [place] [id number] Sarahy Hernandez MD 09/14/19 8:00 AM CDT - 09/14/19 8:30 AM CDT Surgery [facility] [address] [place] [id number] Jaya Grier MD ESOPHAGOGASTRODUODENOSCOPY BIOPSY 09/14/19 7:54 AM CDT - 09/14/19 10:32 AM CDT Hospital Encounter [facility] GI Lab [address] [place] [address] Jaya Grier MD Ulcer of esophagus without bleeding; Gastroesophageal reflux disease without esophagitis Discharge Disposition: Discharge to home or self care 09/09/19 9:00 AM CDT Office Visit [facility] Orthopedics and Sports Medicine [address] [place] [address] Brook Muhammad NP Myofascial pain syndrome, cervical (Primary Dx); Chronic neck pain; Foraminal stenosis of cervical region, diffuse bilateral; Arthropathy of cervical facet joint; DDD (degenerative disc disease), cervical, C3-C4 through C6-C7; Cervical spinal osteophytosis, multilevel 09/01/19 2:15 PM CDT Office Visit [facility] Cardiology [address] [place] [phone] Santo Vail MD Dyspnea, unspecified type (Primary Dx) 08/23/19 8:20 AM DIRECTOR OF ENTERPRISE APPLICATIONS Office Visit [facility] Endocrinology Metabolism and Lipid [address] [facility] [facility] Medical Office [address], [address] [place] [address] Smith Gibbs MD Type 2 diabetes mellitus with diabetic nephropathy, with long-term current use of insulin (HCC) (Primary Dx); Type 2 diabetes mellitus with diabetic neuropathy, with long-term current use of insulin (HCC); Mixed hyperlipidemia; ESRD on hemodialysis (HCC); Primary hypertension 08/18/19 8:15 AM DIRECTOR OF ENTERPRISE APPLICATIONS Telemedicine [facility] Behavioral Health [address] [facility] [address] [place] [address] Adryan Swenson MD Schizoaffective disorder, bipolar type (HCC) (Primary Dx) 08/17/19 25 Telephone [facility] Primary Care at [address] [place] [phone] Cherelle Corcoran MD Medical Question/Miscellaneous 08/02/19 25 JOY ED Outreach [facility] Care Organization [address] [place] [id number] Felicia Garcia MA 08/02/19 25 Nurse Triage [facility] Primary Care at [address] [place] [phone] Cherelle Corcoran MD 07/31/19 9:25 PM DIRECTOR OF ENTERPRISE APPLICATIONS - 07/31/19 10:27 PM DIRECTOR OF ENTERPRISE APPLICATIONS Emergency [facility] Emergency Department [address] [place] [address] Discharge Disposition: Left without being seen 07/27/19 25 Orders Only [facility] Endocrinology Metabolism and Lipid [address] [facility] 13[address] [place] [address] [place] [address] Joe Ballard MD 07/21/[address] [facility] D[facility] Access [facility] at [facility] [address] [place] [address] Varsha Oneill RN 07/18/19 25 2:45 PM DIRECTOR OF ENTERPRISE APPLICATIONS Office Visit [facility] Primary Care at [address] [place] [phone] Cherelle Corcoran MD Fall, subsequent encounter (Primary Dx); Neck pain; Pressure injury of buttock, stage 1, unspecified laterality 07/18/19 25 Orders Only [facility] Gastroenterology at [place] [address] [place] [phone] Jaya Grier MD Ulcer of esophagus without bleeding (Primary Dx) 07/15/19 2:30 PM DIRECTOR OF ENTERPRISE APPLICATIONS - 07/15/19 11:59 PM DIRECTOR OF ENTERPRISE APPLICATIONS Hospital Encounter [facility] Dialysis Access Center at [facility] [address] [place] [phone] ESRD (end stage renal diseas e) on dialysis (HCC) (Primary Dx) Discharge Disposition: Discharge to home or self care 07/15/19 10:00 AM DIRECTOR OF ENTERPRISE APPLICATIONS - 07/15/19 11:00 AM DIRECTOR OF ENTERPRISE APPLICATIONS Surgery [facility] Cardiac Cte Teacher [address] [place] [address] Edgardo Kauffman MD PERMACATH EXCHANGE [65030 (CPT )] 07/15/19 9:13 AM DIRECTOR OF ENTERPRISE APPLICATIONS - 07/15/19 1:20 PM DIRECTOR OF ENTERPRISE APPLICATIONS Hospital Encounter [facility] Cardiac Cte Teacher [address] [place] [address] Edgardo Kauffman MD ESRD (end stage renal disease) on dialysis (HCC) Discharge Disposition: Discharge to home or self care 07/14/19 12:35 PM DIRECTOR OF ENTERPRISE APPLICATIONS - 07/14/19 11:59 PM DIRECTOR OF ENTERPRISE APPLICATIONS Hospital Encounter [facility] Diagnostic Imaging [address] [place] [address] Discharge Disposition: Discharge to home or self care 07/14/19 12:11 PM DIRECTOR OF ENTERPRISE APPLICATIONS - 07/14/19 11:59 PM DIRECTOR OF ENTERPRISE APPLICATIONS Hospital Encounter [facility] Dialysis Access Center at [address] [address] ESRD (end stage renal diseas e) on dialysis (HCC) (Primary Dx); Type 2 diabetes mellitus with diabetic neuropathy, with long-term current use of insulin (HCC); Hypertension associated with diabetes (HCC); ESRD on hemodialysis (HCC); Hyperlipidemia associated with type 2 diabetes mellitus (HCC) Discharge Disposition: Discharge to home or self care 07/13/19 11:03 AM DIRECTOR OF ENTERPRISE APPLICATIONS Anesthesia Event [facility] [facility] [address] [place] [address] Larry Valdivia MD 07/13/19 9:00 AM DIRECTOR OF ENTERPRISE APPLICATIONS - 07/13/19 9:30 AM DIRECTOR OF ENTERPRISE APPLICATIONS Surgery [facility] GI Lab [address] [place] [address] Jaya Grier MD ESOPHAGOGASTRODUODENOSCOPY BIOPSY 07/13/19 8:39 AM DIRECTOR OF ENTERPRISE APPLICATIONS - 07/13/19 12:26 PM DIRECTOR OF ENTERPRISE APPLICATIONS Hospital Encounter [facility] GI Lab [address] [place] [address] Jaya Grier MD Anemia, unspecified type; Gastritis without bleeding, unspecified chronicity, unspecified gastritis type; Gastritis, presence of bleeding unspecified, unspecified chronicity, unspecified gastritis type Discharge Disposition: Discharge to home or self care 07/13/19 Nurse Triage [facility] Primary Care at [address] [phone] Cherelle Corcoran MD 07/13/19 JOY ED Outreach [address] [address] Ale Goldstein MA 07/12/19 11:16 AM DIRECTOR OF ENTERPRISE APPLICATIONS - 07/12/19 3:44 PM DIRECTOR OF ENTERPRISE APPLICATIONS Emergency [facility] Emergency Department [address] [place] [address] Fall, initial encounter (Primary Dx); Acute cystitis without hematuria Discharge Disposition: Discharge to home or self care 07/12/19 Telephone [facility] Primary Care at [address] [phone] Cherelle Corcoran MD Medical Question/Miscellaneous 07/11/19 Nurse Triage [facility] Primary Care at [address] [phone] Cherelle Corcoran MD 07/08/19 1:00 PM DIRECTOR OF ENTERPRISE APPLICATIONS Office Visit [facility] Primary Care at [address] [phone] Cherelle Corcoran MD Altered mental status, unspecified [...] Gastroesophageal reflux disease without esophagitis; Frailty 07/07/19 3:00 PM DIRECTOR OF ENTERPRISE APPLICATIONS Office Visit [facility] Cardiology [address] [facility] [address] [place] [phone] Santo Vail MD Dyspnea, unspecified type (Primary Dx) 07/07/19 1:30 PM DIRECTOR OF ENTERPRISE APPLICATIONS Office Visit [facility] Endocrinology Metabolism and Lipid [address] [place] [address] Medical Office Building [address], [address] [place] [address] Pippa Troy NP Type 2 diabetes mellitus with diabetic nephropathy, with long-term current use of insulin (HCC) (Primary Dx); Dyslipidemia; Primary hypertension 07/04/19 25 Telephone [facility] Primary Care at [address] [place] [address] Cherelle Corcoran MD JOY Questions 06/27/19 Nurse Triage [facility] Primary Care at [address] [place] [phone] Cherelle Corcoran MD from Last 3 Months Immunizations Immunization Administration [...] LINE PLACEMENT > 5 YEARS 10/15/2023 N/A GIOVANNA tejada - Dr. Mcdonald (exchanged 07/15/24 - Dr. Jani Kauffman) FLUORO GUIDED INJECTION SHOU LDER LEFT 12/18/2023 Left COLONOSCOPY UPPER GASTROINTESTINAL ENDOSCOPY Medical History Medical History Date Comments Depression [...] 2 Valentine Smith Diabetes Sister 3 Morenita Shurn Relation Name Status Comments Brother 1 Ismael Alive Brother 2 Maria E Spivey Alive Brother 3 Brother 4 Ruddy Chakraborty Daughter Honey Alive Father Damine Chakraborty Mother Lizbeth Chakraborty Alive Other Magi Alive Sister 1 Valentine Spivey Alive Sister 2 Valentine Luis Sister 3 Morenita Shurn Social History Tobacco Use Types Packs/Day Years [...] from doctor or pharmacy Often 01/20/2024 [facility] Utilities Answer Date Recorded In the [...] in a custodial (including now)? No 10/30/2023 PHQ-9 Answer Date [...] time in the past 12 m [facility], were you homeless or living [...] Legal Sex Female 9:03 AM DIRECTOR OF ENTERPRISE APPLICATIONS Gender Identity Female 02/08/2020 6:39 PM CDT [...] Mass Index 23.78 09/13/2024 8:08 AM CDT Plan of Treatment Scheduled Procedures Name Priority [...] history exists Medical Devices Implanted Type Area Dry Kiln Burner Device Identifier Shelf Expiration Date Model / Serial / Lot [facility] [employer] Duramax Vascpak Safesheath D-Pro 15.5fr 24cm Kit Catheter [id number] - [id number] Implanted:Qty: 1 on 10/15/2023 at [facility] [employer] 10/19/2025 [id number] / / [id number] [facility] [employer] Duraflow Embosafe 15.5fr 24cm Basic 2 Lumen Kit Catheter [id number] - [id number] Implanted:Qty: 1 on 07/15/2024 by Edgardo Kauffman MD at [facility] [employer] 08/19/2026 [id number] 15 / / [id number] Procedures Procedure Name Priority Date/Time Associated Diagnosis Comments POCT GLUCOSE DEVICE Routine 09/13/2024 9:47 AM CDT SURGICAL PATHOLOGY Routine 09/13/2024 9:28 AM CDT Ulcer of esophagus without bleeding ESOPHAGOGASTRODUODENOSCOPY BIOPSY 09/13/2024 9:20 AM CDT Ulcer of esophagus without bleeding EGD 09/13/2024 9:17 AM CDT POC BLOOD GAS AND CHEMISTRIE S, VENOUS Routine 09/13/2024 8:54 AM CDT TN INJECTION SINGLE/IRRIGATOR SPRINKLING SYSTEM TRIGGER POINT 1/2 MUSCLES Routine 09/08/2024 9:00 AM CDT Myofascial pain syndrome, cervical CT HEAD WO CONTRAST Schedule Routine, Read Routine (OP Routine) 09/07/2024 POCT HEMOGLOBIN A1C Routine 08/22/2024 8:55 AM DIRECTOR OF ENTERPRISE APPLICATIONS Type 2 diabetes mellitus with diabetic nephropathy, with long-term current use of insulin (HCC) RESPIRATORY PATHOGEN PANEL STAT 07/31 1:02 PM DIRECTOR OF ENTERPRISE APPLICATIONS DIABETIC EYE EXAM Routine 07/27/2024 12:37 PM DIRECTOR OF ENTERPRISE APPLICATIONS HM DIABETES EYE EXAM Routine 07/22/2024 XR CHEST 1 VIEW ED Urgent/IP Urgent 07/15/2024 1:11 PM DIRECTOR OF ENTERPRISE APPLICATIONS RPL DRE CVC W/O PUMP [id number] Routine 07/15 12:40 PM DIRECTOR OF ENTERPRISE APPLICATIONS ESRD (end stage renal disease) on dialysis (HCC) XR CHEST 1 VIEW ED Urgent/IP Urgent 07/14/2024 1:16 PM DIRECTOR OF ENTERPRISE APPLICATIONS EGFR STAT 07/14/2024 12:34 PM DIRECTOR OF ENTERPRISE APPLICATIONS DIFFERENTIAL AUTO STAT 07/14/2024 12:34 PM DIRECTOR OF ENTERPRISE APPLICATIONS BASIC METABOLIC PANEL STAT 07/14/2024 12:34 PM DIRECTOR OF ENTERPRISE APPLICATIONS CBC WITH AUTO DIFFERENTIAL STAT 07/14 12:34 PM DIRECTOR OF ENTERPRISE APPLICATIONS SURGICAL PATHOLOGY Routine 07/13/2024 11:10 AM DIRECTOR OF ENTERPRISE APPLICATIONS Anemia, unspecified type Gastritis without bleeding, unspecified chronicity, unspecified gastritis type ESOPHAGOGASTRODUODENOSCOPY BIOPSY 07/13/2024 11:03 AM DIRECTOR OF ENTERPRISE APPLICATIONS Anemia, unspecified type Gastritis without bleeding, unspecified chronicity, unspecified gastritis type EGD 07/13/2024 10:59 AM DIRECTOR OF ENTERPRISE APPLICATIONS POC BLOOD GAS AND CHEMISTRIE S, VENOUS Routine 07/13/2024 10:12 AM DIRECTOR OF ENTERPRISE APPLICATIONS TROPONIN T HIGH-SENSITIVITY 2-HOUR Timed 07/12/2024 1:59 PM DIRECTOR OF ENTERPRISE APPLICATIONS URINALYSIS, MICROSCOPIC ONLY STAT 1:05 PM DIRECTOR OF ENTERPRISE APPLICATIONS DRUGS OF ABUSE SCREEN, URINE WITHOUT CONFIRMATION STAT 07/12/2024 1:05 PM DIRECTOR OF ENTERPRISE APPLICATIONS URINE CULTURE STAT 07/12/2024 1:05 PM DIRECTOR OF ENTERPRISE APPLICATIONS URINALYSIS AND REFLEX TO MICROSCOPIC AND CULTURE STAT 07/12/2024 1:05 PM DIRECTOR OF ENTERPRISE APPLICATIONS THYROID FUNCTION CASCADE STAT 025 11:53 AM DIRECTOR OF ENTERPRISE APPLICATIONS EGFR STAT 07/12/2024 11:53 AM DIRECTOR OF ENTERPRISE APPLICATIONS DIFFERENTIAL AUTO STAT 07/12/2024 11:53 AM DIRECTOR OF ENTERPRISE APPLICATIONS TROPONIN T HIGH-SENSITIVITY SERIES (BASELINE, 2HR, 4HR, 6HR) STAT 07/12/2024 11:53 AM DIRECTOR OF ENTERPRISE APPLICATIONS CBC WITH AUTO DIFFERENTIAL STAT 07/12 11:53 AM DIRECTOR OF ENTERPRISE APPLICATIONS COMPREHENSIVE METABOLIC PANEL STAT 11:53 AM DIRECTOR OF ENTERPRISE APPLICATIONS INFLUENZA A/B, RSV, AND COVID-19 PCR Routine 07/12/2024 11:53 AM DIRECTOR OF ENTERPRISE APPLICATIONS ECG 12-LEAD STAT 07/12/2024 11:48 AM DIRECTOR OF ENTERPRISE APPLICATIONS CT FACIAL BONES WO CONTRAST ED 06/23 10:38 AM DIRECTOR OF ENTERPRISE APPLICATIONS CT CERVICAL SPINE WO CONTRAST ED 10:38 AM DIRECTOR OF ENTERPRISE APPLICATIONS CT HEAD WO CONTRAST ED 07/12/2024 10:38 AM DIRECTOR OF ENTERPRISE APPLICATIONS XR SHOULDER RIGHT 2 OR MORE VIEWS ED 07/12/2024 10:08 AM DIRECTOR OF ENTERPRISE APPLICATIONS XR SHOULDER LEFT 2 OR MORE VIEWS ED 07/12/2024 10:08 AM DIRECTOR OF ENTERPRISE APPLICATIONS POCT GLUCOSE DEVICE Routine 07/12/2024 9:33 AM DIRECTOR OF ENTERPRISE APPLICATIONS LIPID PANEL Routine 05/16/2024 10:14 AM DIRECTOR OF ENTERPRISE APPLICATIONS Mixed hyperlipidemia COLONOSCOPY 03/01/2024 8:49 AM CDT [...] Relevant to Health Maintenance Results * POCT glucose (09/13/2024 9:47 AM CDT) Glucose, POC 176 70 - 199 mg/dL Glucose comment 1 RN/MD Notified NILSA RODRIGES Blood 09/13/2024 9:47 AM CDT 09/13/2024 9:47 AM CDT us Jaya Grier MD LAB POCT ORDERABLES - DEVICE Fin al Result CERNER [address] [place] [address] * Surgical pathology (09/13/2024 9:28 AM CDT) Tissue specimen (specimen) (Esophageal biopsy) 09/13/2024 9:28 AM CDT Comment:Cold bx Narrative PATHOLOGY [facility] - 09/14/2024 1:55 PM CDT [facility] Department of Pathology [address] [place] [address] Note to Patients: This report may contain [...] : 1950 (Age: 73) Gender: F Address: [address] [place] [address] Hospital #: [id number] Service: Gastro Location: Patient Type: [facility] OUTPATIENT Taken: 09/13/2024 Received: 09/13/2024 Accessioned: 09/13/2024 [...] cm. Entirely submitted. Labeled A1. Jar 0. [facility]/09/13/2024 13:20 CAMILA Johnson, PA (ASCP) Microscopic slide review and interpretation for this case was performed at [facility], Department of Surgical Pathology, [address] [facility] [place], [id number], [place] [address] CLIA # [id number] us Jaya Grier MD LAB PATHOLOGY ORDERABLES Final R esult PATHOLOGY [facility] * EGD (09/13/2024 9:17 AM CDT) Anatomical Region Laterality Modality Other Narrative Procedure Note Jaya Grier MD - 09/13/2024 9:17 AM CDT [facility] GI ENDOSCOPY Patient Name: Sixto Chakraborty Procedure Date: 09/13/2024 9:17 AM Date of : 1950 Admit Type: Outpatient Age: 73 Gender: Female Attending MD: Jaya Grier M.D. Room: [facility] ENDOSCOPY ROOM 03 Note Status: Finalized Procedure: [...] On: 09/13/2024 9:17 AM Recognized by the [employer] for promoting quality in endoscopy us Jaya Grier MD ENDOSCOPY PROCEDURES Final Resul t * (ABNORMAL) POC Blood Gas and Chemistries, Venous - (09/13/2024 8:54 AM CDT) pH,chris POC 7.34 7.32 - 7.43 pCO2, chris POC 51(H) 40 - 50 mmHg [facility] pO2,chris POC 22 mmHg [facility] Comment: Interpretive Data No reference range established. Current interpretive data was last revised 2020. HCO3, chris (Calc) POC 27 20 - 30 mmol/L [facility] Base excess, chris POC 1 mmol/L [facility] Comment: Interpretive Data No reference range established. Current interpretive data was last revised 2020. Hemoglobin, chris POC 10.9(L) 11.9 - 15.5 g/dL [facility] Hematocrit, chris POC 32.0(L) 35.6 - 45.5 % [facility] Sodium, chris POC 141 135 - 145 mmol/L [facility] Potassium, chris POC 4.4 3.3 - 4.9 mmol/L [facility] Comment: Interpretive Data This method is not able to assess for hemolysis, which may falsely increase potassium concentrations. If further testing is needed to evaluate this result, consider in-laboratory plasma potassium. Current Interpretive Data was last revised on 2022. Glucose, chris POC 170 70 - 199 mg/dL [facility] Ionized Calcium, chris POC 4.90 4.50 - 5.10 mg/dL [facility] Blood 09/13/2024 8:54 AM CDT 09/13/2024 8:54 AM CDT Jaya Grier MD LAB POCT ORDERABLES - DEVICE Antonio al Result [facility] [address] [facility] Department [place] [address] * TN INJECTION SINGLE/IRRIGATOR SPRINKLING SYSTEM TRIGGER POINT 1/2 MUSCLES (09/08/2024 9:00 AM CDT) Narrative Brook Muhammad NP - 09/08/2024 9:00 AM CDT Brook Muhammad NP 09/08/2024 8:53 PM Trigger Point Injection Performed by: Brook Muhammad NP Authorized by: Brook Muahmmad NP Consent Given by: Patient Site marked: [...] well with no immediate complications Brook Muhammad COMPRESSOR BATTERY PELLETS IN CLINIC/BEDSIDE ORDERABLE S Final Result * CT Head WO Contrast (09/07/2024) Anatomical Region Laterality Modality Head and Neck N/A Computed Tomogra phy Historical Provider IMG CT PROCEDURES Final R esult * POCT hemoglobin A1c (08/22/2024 8:55 AM DIRECTOR OF ENTERPRISE APPLICATIONS) Hemoglobin A1C, POC 7.7 4.0 - 5.6 % Blood 08/22/2024 8:55 AM DIRECTOR OF ENTERPRISE APPLICATIONS Smith Gibbs MD POINT OF CARE TEST ORDERABLE S Final Result * Respiratory pathogen panel Nasopharyngeal (07/31/2024 1:02 PM DIRECTOR OF ENTERPRISE APPLICATIONS) Influenza A RNA Not Detected Not Detected Influenza B RNA Not Detected Not Detected [facility] CH RSV RNA Not Detected Not Detected [facility] COVID-19 RNA Not Detected Not Detected [facility] Coronavirus 229E RNA Not Detected Not Detected [facility] Coronavirus HKU1 RNA Not Detected Not Detected [facility] Coronavirus NL63 RNA Not Detected Not Detected [facility] Coronavirus OC43 RNA Not Detected Not Detected [facility] Adenovirus DNA Not Detected Not Detected [facility] Metapneumovirus RNA Not Detected Not Detected [facility] Rhinovirus/Enterov irus RNA Not Detected Not Detected [facility] Parainfluenza 1 RNA Not Detected Not Detected [facility] Parainfluenza 2 RNA Not Detected Not Detected [facility] Parainfluenza 3 RNA Not Detected Not Detected [facility] Parainfluenza 4 RNA Not Detected Not Detected [facility] B. pertussis DNA Not Detected Not Detected [facility] B. parapertussis DNA Not Detected Not Detected [facility] C. pneumoniae DNA Not Detected Not Detected [facility] M. pneumoniae DNA Not Detected Not Detected [facility] Comment: Interpretive Data The [employer] FilmArray Respiratory Panel (RP2.1) assay is a [...] assay has FDA clearance for testing of COMPRESSOR BATTERY PELLETS swabs. The performance characteristics of this assay have been determined by [facility]. Current interpretive data was last revised on 2021. Nasopharyngeal 07/31/2024 1: 02 PM DIRECTOR OF ENTERPRISE APPLICATIONS 07/31/2024 1:05 PM DIRECTOR OF ENTERPRISE APPLICATIONS Narrative NILSA - 07/31/2024 2:05 PM DIRECTOR OF ENTERPRISE APPLICATIONS Is the Patient experiencing symptoms consistent with COVID?->Yes Surveillance testing for transplant patient?->No Lucy Lucero MD LAB MICROBIOLOGY - [facility] ORDERABLES Final Result [facility] [address] Department [place] [address] * Diabetic Eye Exam (07/27/2024 12:37 PM DIRECTOR OF ENTERPRISE APPLICATIONS) Historical Provider HEALTH MAINTENANCE Final Result * HM DIABETES EYE EXAM (07/22/2024) Historical Provider HEALTH MAINTENANCE Final Result * XR Chest 1 View (07/15/2024 1:11 PM DIRECTOR OF ENTERPRISE APPLICATIONS) Anatomical Region Laterality Modality Body, Chest N/A Computed Radiogr aphy 07/15/2024 1:35 PM DIRECTOR OF ENTERPRISE APPLICATIONS Narrative 07/15/2024 1:36 PM DIRECTOR OF ENTERPRISE APPLICATIONS EXAM DESCRIPTION: XR CHEST 1 VIEW REASON [...] Yosef Lindo D.O. PS T: Report ID: [id number] Reading Location: [id number] Procedure Note Yosef Lindo, DO - 07/15/2024 [...] Yosef Lindo D.O. PS T: Report ID: [id number] Reading Location: [id number] us Edgardo Kauffman MD IMG XR PROCEDURES Final Re sult * RPL DRE CVC W/O PUMP [id number] (07/15/2024 12:40 PM DIRECTOR OF ENTERPRISE APPLICATIONS) Anatomical Region Laterality Modality X-Ray Angiograph y Narrative 07/15/2024 12:45 PM DIRECTOR OF ENTERPRISE APPLICATIONS Please see OpNote for result. us Edgardo Kauffman MD CV CARDIAC CATH PROCEDURES Final Result * XR Chest 1 View (07/14/2024 1:16 PM DIRECTOR OF ENTERPRISE APPLICATIONS) Anatomical Region Laterality Modality Body, Chest N/A Computed Radiogr aphy 07/14/2024 1:20 PM DIRECTOR OF ENTERPRISE APPLICATIONS Narrative 07/14/2024 1:22 PM DIRECTOR OF ENTERPRISE APPLICATIONS EXAM DESCRIPTION: XR CHEST 1 VIEW REASON [...] 07/14/2024 1:22 PM - Electronically signed by Salvadro Villa M.D. KR T: Report ID: [id number] Reading Location: [id number] Procedure Note Salvador Villa MD - 07/14/2024 [...] Salvador Villa M.D. KR T: Report ID: [id number] Reading Location: [place] [address] Edgardo Kauffman MD IMG XR PROCEDURES Final Re sult * (ABNORMAL) eGFR (07/14/2024 12:34 PM DIRECTOR OF ENTERPRISE APPLICATIONS) eGFR 7(L) >=60 mL/min/1. 73 m2 Comment: [...] reviewed 2021. Blood 07/14/2024 12:3 4 PM DIRECTOR OF ENTERPRISE APPLICATIONS 07/14/2024 12:41 PM DIRECTOR OF ENTERPRISE APPLICATIONS us Edgardo Kauffman MD LAB BLOOD ORDERABLES Final Result NILSA [address] [facility] Department [place] [address] * (ABNORMAL) Differential, auto (07/14/2024 12:34 PM DIRECTOR OF ENTERPRISE APPLICATIONS) Neutrophil abs 7.8(H) 1.5 - 6.5 K/cumm Imm gran abs 0.0 0.0 - 0.1 K/cumm [facility] Lymphocyte abs 1.5 0.8 - 3.3 K/cumm [facility] Monocyte abs 0.5 0.2 - 0.8 K/cumm [facility] Eosinophil abs 0.2 0.0 - 0.5 K/cumm [facility] Basophil abs 0.0 0.0 - 0.1 K/cumm [facility] Neutrophil pct 78.1 % [facility] Comment: Interpretive Data Percent cell count reference ranges are not reported, since discordance with absolute values may lead to misinterpretation of CBC data. Current Interpretive Data was last revised on 2017. Imm gran pct 0.4 % [facility] Comment: Interpretive Data Percent cell count reference ranges are not reported, since discordance with absolute values may lead to misinterpretation of CBC data. Current Interpretive Data was last revised on 2017. Lymphocyte pct 14.8 % [facility] Comment: Interpretive Data Percent cell count reference ranges are not reported, since discordance with absolute values may lead to misinterpretation of CBC data. Current Interpretive Data was last revised on 2017. Monocyte pct 4.7 % [facility] Comment: Interpretive Data Percent cell count reference ranges are not reported, since discordance with absolute values may lead to misinterpretation of CBC data. Current Interpretive Data was last revised on 2017. Eosinophil pct 1.6 % [facility] Comment: Interpretive Data Percent cell count reference ranges are not reported, since discordance with absolute values may lead to misinterpretation of CBC data. Current Interpretive Data was last revised on 2017. Basophil pct 0.4 % [facility] Comment: Interpretive Data Percent cell count reference ranges are not reported, since discordance with absolute values may lead to misinterpretation of CBC data. Current Interpretive Data was last revised on 2017. Blood 07/14/2024 12:3 4 PM DIRECTOR OF ENTERPRISE APPLICATIONS 07/14/2024 12:41 PM DIRECTOR OF ENTERPRISE APPLICATIONS Edgardo Kauffman MD LAB BLOOD ORDERABLES Final Result Performing Organization Address [facility] Co de Phone Number NILSA [address] [address] * (ABNORMAL) CBC with auto differential (07/14/2024 12:34 PM DIRECTOR OF ENTERPRISE APPLICATIONS) [facility] WBC 9.9 3.8 - 9.9 K/cumm Hgb 11.6(L) 11.9 - 15.5 g/dL [facility] Hct 35.3(L) 35.6 - 45.5 % [facility] Plt 241 150 - 400 K/cumm [facility] MPV 11.0 9.1 - 12.3 fL [facility] RBC 3.63(L) 3.90 - 5.20 M/cumm [facility] MCV 97.2(H) 81.3 - 96.4 fL [facility] MCH 32.0 27.1 - 33.3 pg [facility] MCHC 32.9 32.3 - 35.7 g/dL [facility] RDW CV 15.4(H) 11.1 - 14.9 % [facility] RDW SD 54.8(H) 35.7 - 48.1 fL [facility] NRBC abs 0.00 0.00 - 0.01 K/cumm [facility] Blood 07/14/2024 12:3 4 PM DIRECTOR OF ENTERPRISE APPLICATIONS 07/14/2024 12:41 PM DIRECTOR OF ENTERPRISE APPLICATIONS Edgardo Kauffman MD LAB BLOOD ORDERABLES Final Result Performing Organization Address [facility] Co de Phone Number NILSA [address] [employer] [place] [address] * (ABNORMAL) Basic metabolic panel (07/14/2024 12:34 PM DIRECTOR OF ENTERPRISE APPLICATIONS) [facility] Sodium 138 135 - 145 mmol/L Potassium, pl 4.1 3.3 - 4.9 mmol/L [facility] Comment:Hemolyzed; Potassium value may be falsely elevated by as much as 1.0 mmol/L. Suggest redraw and reanalysis. Chloride 100 97 - 110 mmol/L [facility] CO2 25 22 - 32 mmol/L [facility] Anion gap 13 2 - 15 mmol/L [facility] BUN 51(H) 6 - 25 mg/dL [facility] Creatinine 6.22(H) 0.60 - 1.10 mg/dL [facility] Glucose 155 70 - 199 mg/dL [facility] [...] Calcium 9.4 8.5 - 10.3 mg/dL [facility] Blood 07/14/2024 12:3 4 PM DIRECTOR OF ENTERPRISE APPLICATIONS 07/14/2024 12:41 PM DIRECTOR OF ENTERPRISE APPLICATIONS us Edgardo Kauffman MD LAB BLOOD ORDERABLES Final Result [address] [place] [address] * Surgical pathology (07/13/2024 11:10 AM DIRECTOR OF ENTERPRISE APPLICATIONS) Tissue specimen (specimen) (Duodenum, Biopsy) 07/13/2024 11:10 AM DIRECTOR OF ENTERPRISE APPLICATIONS Tissue specimen (specimen) (Gastric/Stomach biopsy) 07/13/2024 11:11 AM DIRECTOR OF ENTERPRISE APPLICATIONS Tissue specimen (specimen) (Gastric/Stomach biopsy) 07/13/2024 11:11 AM DIRECTOR OF ENTERPRISE APPLICATIONS Tissue specimen (specimen) (Esophageal biopsy) 07/13/2024 11:13 AM DIRECTOR OF ENTERPRISE APPLICATIONS Narrative PATHOLOGY [facility] - 07/14/2024 1:59 PM DIRECTOR OF ENTERPRISE APPLICATIONS [facility] Department of Pathology [address] [place] [address] Note to Patients: This report may contain [...] : 1950 (Age: 73) Gender: F Address: [address] [place] [address] [facility] #: [id number] Service: Gastro Location: Patient Type: [facility] OUTPATIENT Taken: 07/13/2024 Received: 07/13/2024 Accessioned: 07/13/2024 [...] cm. Entirely submitted. Labeled D1. Jar 0. [facility]/07/13/2024 13:31 CAMILA Johnson, PA (ASCP) Microscopic slide review and interpretation for this case was performed at [facility], Department of Surgical Pathology, [address] [facility], [id number], [place] [address] CLIA # [id number] us Jaya Grier MD LAB PATHOLOGY ORDERABLES Final R esult PATHOLOGY [facility] * EGD (07/13/2024 10:59 AM DIRECTOR OF ENTERPRISE APPLICATIONS) Anatomical Region Laterality Modality Other Narrative Procedure Note Jaya Grier MD - 07/13/2024 10:59 AM CST [facility] GI ENDOSCOPY Patient Name: Sixto Chakraborty Procedure Date: 07/13/2024 10:59 AM Date of : 1950 Admit Type: Outpatient Age: 73 Gender: Female Attending MD: Jaya Grier M.D. Room: [facility] ENDOSCOPY ROOM 06 Note Status: Finalized Procedure: [...] On: 07/13/2024 10:59 AM Recognized by the [employer] for promoting quality in endoscopy Jaya Grier MD ENDOSCOPY PROCEDURES Final Resul t * (ABNORMAL) POC Blood Gas and Chemistries, Venous - (07/13/2024 10:12 AM DIRECTOR OF ENTERPRISE APPLICATIONS) pH,chris POC 7.40 7.32 - 7.43 pCO2, chris POC 49 40 - 50 mmHg [facility] pO2,chris POC 36 mmHg [facility] Comment: Interpretive Data No reference range established. Current interpretive data was last revised 2020. HCO3, chris (Calc) POC 30 20 - 30 mmol/L [facility] [facility] Base excess, chris POC 4 mmol/L [facility] Comment: Interpretive Data No reference range established. Current interpretive data was last revised 2020. Hemoglobin, chris POC 13.9 11.9 - 15.5 g/dL [facility] Hematocrit, chris POC 41.0 35.6 - 45.5 % [facility] Sodium, chris POC 134(L) 135 - 145 mmol/L [facility] Potassium, chris POC 4.6 3.3 - 4.9 mmol/L [facility] Comment: Interpretive Data This method [...] mg/dL NILSA Blood 07/13/2024 10:1 2 AM DIRECTOR OF ENTERPRISE APPLICATIONS 07/13/2024 10:12 AM DIRECTOR OF ENTERPRISE APPLICATIONS Jaya Grier MD LAB POCT ORDERABLES - DEVICE Fin al Result Performing Organization Address [facility] Co de Phone Number [facility] [address] [place] [address] [place] [address] * (ABNORMAL) Troponin T high-sensitivity 2-hour (07/12/2024 1:59 PM DIRECTOR OF ENTERPRISE APPLICATIONS) Trop T hs 63(H) <=14 ng/L Comment: Interpretive Data For further hscTnT resources including the diagnostic algorithm and an aid in interpretation, copy and paste this link: https://nrl.testcatalog.org/show/hsTrop Current Interpretive Data last revised 2020. Testing performed by: [address] [address] Trop T hs delta -5 ng/L NILSA Comment:Testing performed by : [address] [address] Trop T hs interp Equivocal NILSA Comment:Testing performed by : [address] [address] Blood 07/12/2024 1:59 PM DIRECTOR OF ENTERPRISE APPLICATIONS 07/12/2024 2:20 PM DIRECTOR OF ENTERPRISE APPLICATIONS Donna CUEVA LAB BLOOD ORDERABLES Final Re sult Performing Organization Address City/[facility]/ZIP Co de Phone Number [facility] [address] [place] [address] Department [place] [employer] [place] [address] * (ABNORMAL) Urinalysis reflex to microscopic and culture Urine (07/12/2024 1:05 PM DIRECTOR OF ENTERPRISE APPLICATIONS) Color, ur Mikayla Yellow Comment:Testing performed by : [facility], [address] [place] [address]., [address] Clarity, ur Turbid(A) Clear NILSA Comment:Testing performed by : [facility], [address] [place] [address], [place]., [address] Specific gravity, ur 1.006 1.003 - 1.030 NILSA Comment:Testing performed by : [address] [address] pH, urine 6.0 NILSA Comment: Interpretive Data U rine pH is affected by diet, medications, systemic acid-base disturbances, and renal tubular function. pH may affect urinary stone formation. For example, urine pH below 6.0 may help reduce the tendency for calcium phosphate stones and pH greater than 6.0 may reduce the tendency for uric acid stone formation. Source: [facility] [employer] Current Interpretive Data was last revised on 2017 Testing performed by: [address] [address] Protein, ur ql 2+(A) Negative NILSA Comment:Testing performed by : [address] [address] Glucose, ur ql 1+(A) Negative NILSA Comment:Testing performed by : [address] [address] Ketones, ur Negative Negative NILSA Comment:Testing performed by : [address] [address] Bilirubin, ur Negative Negative NILSA Comment:Testing performed by : [address] [address] Blood, ur 2+(A) Negative NILSA Comment:Testing performed by : [address] [address] Urobilinogen, ur <2.0 <2.0 mg/dL NILSA Comment:Testing performed by : [address] [address] Nitrite, ur Negative Negative NILSA Comment:Testing performed by : [address] [address] Leukocyte esterase, ur 4+(A) Negative NILSA RODRIGES Comment:Testing performed by : [address] [address] UA reflex comment Reflex to microscopic UA will be performed. NILSA RODRIGES Comment:Testing performed by : [facility], [address] [place] [address]., [address] Urine 07/12/2024 1:05 PM DIRECTOR OF ENTERPRISE APPLICATIONS 07/12/2024 1:09 PM DIRECTOR OF ENTERPRISE APPLICATIONS Donna CUEVA LAB MICROBIOLOGY - GENERAL OR DERABLES Final Result NILSA [address] [facility] Department [place] [address] * Drugs of Abuse Screen, Urine without Confirmation (07/12/2024 1:05 PM DIRECTOR OF ENTERPRISE APPLICATIONS) Amphetamine, ur Not Detected CutOff 500ng/mL Comment: Interpretive Data - Amphetamines: Samples containing greater than 500 ng/mL d-methamphetamine or other cross-reacting amphetamine compounds are reported as positive. Amphetamine immunoassays are subject to significant false positive rates due to cross-reactivity of non-amphetamine drugs. Confirmatory testing required for definitive results. Current Interpretive Data was last reviewed 2023. Testing performed by: [address] [address] Barbiturates, ur Not Detected CutOff 200ng/mL NILSA RODRIGES Comment: Interpretive Data - Barbiturates: Samples containing greater than 200 ng/mL secobarbital or other cross-reacting barbiturate compounds are reported as positive. False positive and false negative results are possible. Confirmatory testing required for definitive results. Current Interpretive Data was last reviewed 2023. Testing performed by: [address] [address] Benzodiazepines, ur Not Detected CutOff 100ng/mL NILSA RODRIGES Comment: Interpretive Data - Benzodiazepines: Samples containing greater than 100 ng/mL nordiazepam or other cross-reacting compounds are reported as positive. False positive and false negative results are possible. Confirmatory testing required for definitive results. Current Interpretive Data was last reviewed 2023. Testing performed by: [address] [address] Cannabinoids, ur Not Detected CutOff 50 ng/mL [facility] Comment: Interpretive Data - Cannabinoids: Samples containing greater than 50 ng/mL delta-9 THC -COOH or other cross- reacting compounds are reported as positive. False positive and false negative results are possible. Confirmatory testing required for definitive results. Current Interpretive Data was last reviewed 2023. Testing performed by: [address] [address] Cocaine, ur Not Detected CutOff 150ng/mL [facility] Comment: Interpretive Data - Cocaine: Samples containing greater than 150 ng/mL benzoylecgonine or other cross- reacting compounds are reported as positive. False positive and false negative results are possible. Confirmatory testing required for definitive results. Current Interpretive Data was last reviewed 2023. Testing performed by: [address], [place]., [address] Fentanyl, Ur Not Detected Cutoff 1 ng/mL [facility] Comment: Interpretive Data - Fentanyl: Samples containing greater than 1 ng/mL fentanyl or other cross-reacting fentanyl compounds are reported as positive. False positive and false negative results are possible. Confirmatory testing required for definitive results. Current Interpretive Data was last reviewed 2023. Testing performed by: [address] [address] Methadone, ur Not Detected CutOff 300ng/mL [facility] Comment: Interpretive Data - Methadone: Samples containing greater than 300 ng/mL d,l-methadone or other cross-reacting compounds are reported as positive. False positive and false negative results are possible. Confirmatory testing required for definitive results. Current Interpretive Data was last reviewed 2023. Testing performed by: [address] [address] Opiates, ur Not Detected CutOff 300ng/mL [facility] Comment: Interpretive Data - Opiates: Samples containing greater than 300 ng/mL morphine or other cross-reacting compounds are reported as positive. False positive and false negative results are possible. Confirmatory testing required for definitive results. Current Interpretive Data was last reviewed 2023. Testing performed by: [address] [address] Oxycodone, ur Not Detected CutOff 100ng/mL NILSA Comment: Interpretive Data - Oxycodone: Samples containing greater than 100 ng/mL oxycodone or other cross-reacting compounds are reported as positive. False positive and false negative results are possible. Confirmatory testing required for definitive results. Current Interpretive Data was last reviewed 2023. Testing performed by: [address] [address] Phencyclidine, ur Not Detected CutOff 25 ng/mL NILSA Comment: Interpretive Data - Phencyclidine: Samples containing greater than 25 ng/mL phencyclidine or other cross-reacting compounds are reported as positive. False positive and false negative results are possible. Confirmatory testing required for definitive results. Current Interpretive Data was last reviewed 2023. Testing performed by: [address] [address] Urine Creatinine 74 mg/dL NILSA Comment: Interpretive Data Urine Creatinine: < 10 mg/dL is extremely dilute = or > 10 but < 20 mg/dL is dilute = or > 20 mg/dL is normal Current Interpretive Data was last revised on 2017. Testing performed by: [address] [address] Urine 07/12/2024 1:05 PM DIRECTOR OF ENTERPRISE APPLICATIONS 07/12/2024 1:09 PM DIRECTOR OF ENTERPRISE APPLICATIONS Narrative [facility] - 07/12/2024 1:31 PM DIRECTOR OF ENTERPRISE APPLICATIONS Drug of Abuse screening is performed by immunoassay for medical purposes only. This is not to be used for Pain Management purposes. us Donna CUEVA LAB URINE ORDERABLES Final Re sult NILSA [address] [facility] Department [place] [address] * (ABNORMAL) Urinalysis, microscopic only (07/12/2024 1:05 PM DIRECTOR OF ENTERPRISE APPLICATIONS) WBC, ur >50(A) 0 - 5 /HPF Comment:Testing performed by : [address] [address] RBC, ur 11-20(A) 0 - 2 /HPF NILSA Comment:Testing performed by : [facility], [address] [place] [address]., [address] Bacteria, ur 4+(A) NILSA Comment:Testing performed by : [facility], [address] [place] [address]., [address] Culture Reflex Comment Reflex to urine culture will be performed. NILSA Comment:Testing performed by : [address] [address] Urine 07/12/2024 1:05 PM DIRECTOR OF ENTERPRISE APPLICATIONS 07/12/2024 1:09 PM DIRECTOR OF ENTERPRISE APPLICATIONS Donna CUEVA LAB URINE ORDERABLES Final Re sult NILSA RODRIGES [address] [facility] Department [place] [address] * (ABNORMAL) Urine culture Urine (07/12/2024 1:05 PM DIRECTOR OF ENTERPRISE APPLICATIONS) Report Final Report: Greater than or equal to 100,000 colonies/mL of Escherichia coli (.) Comment:Testing performed by : [facility], [address] [place]., [address] Organism ESCHERICHIA COLI NILSA Urine 07/12/2024 1:05 PM DIRECTOR OF ENTERPRISE APPLICATIONS 07/12/2024 3:03 PM DIRECTOR OF ENTERPRISE APPLICATIONS Narrative NILSA - 07/14/2024 2:20 PM DIRECTOR OF ENTERPRISE APPLICATIONS Urine culture reflexed based upon urinalysis results. Testing performed by [facility] ([phone]) Organism Antibiotic Method Susceptibility Escherichia coli Ampicillin [...] - GENERAL OR DERABLES Final Result NILSA [address] [place] [address] * (ABNORMAL) Troponin T high-sensitivity series (baseline, 2hr, 4hr, 6hr) (07/12/2024 11:53 AM DIRECTOR OF ENTERPRISE APPLICATIONS) Pathologist [facility] Trop T hs 68(H) <=14 ng/L Comment: REDRAW: HEMOLYZED SPECIMEN Interpretive Data For further hscTnT resources including the diagnostic algorithm and an aid in interpretation, copy and paste this link: https://nrl.testcatalog.org/show/hsTrop Current Interpretive Data last revised 2020. Testing performed by: [address] [address] Blood 07/12/2024 11:5 3 AM DIRECTOR OF ENTERPRISE APPLICATIONS 07/12/2024 11:58 AM DIRECTOR OF ENTERPRISE APPLICATIONS Donna CUEVA LAB BLOOD ORDERABLES Final Re sult Performing Organization Address City/[facility]/ZIP Co de Phone Number NILSA [address] [place] [address] * Influenza A/B, RSV, and COVID-19 PCR Nasopharyngeal (07/12/2024 11:53 AM DIRECTOR OF ENTERPRISE APPLICATIONS) [facility] COVID-19 RNA Negative Negative Comment:Testing performed by : [address] [address] Influenza A RNA Negative Negative NILSA Comment:Testing performed by : [address] [address] Influenza B RNA Negative Negative NILSA Comment:Testing performed by : [address] [address] RSV RNA Negative Negative NILSA Comment: Interpretive data: Testing performed by [facility]. This test is performed using the [employer] Xpress CoV-2/Flu/RSV plus assay. This is a multiplex, real-time reverse transcriptase PCR assay intended for the qualitative detection of nucleic acid from SARS-CoV-2, influenza A, influenza B, and respiratory syncytial virus. This assay has been cleared by the [place] Food and Drug administration. The performance characteristics have been verified by the [facility]. Results must be considered in the clinical context, and a negative result does not rule out infection. Interpretive Data last revised 2023 Testing performed by: [facility], [address] [place] [address]., [address] Nasopharyngeal 07/12/2024 11 :53 AM DIRECTOR OF ENTERPRISE APPLICATIONS 07/12/2024 11:58 AM DIRECTOR OF ENTERPRISE APPLICATIONS Narrative NILSA - 07/12/2024 12:38 PM DIRECTOR OF ENTERPRISE APPLICATIONS Is the Patient experiencing symptoms consistent with COVID?->Unknown Donna CUEVA LAB MICROBIOLOGY - GENERAL OR DERABLES Final Result NILSA [address] [facility] Department [place] [address] * (ABNORMAL) eGFR (07/12/2024 11:53 AM DIRECTOR OF ENTERPRISE APPLICATIONS) eGFR 10(L) >=60 mL/min/1. 73 m2 Comment: [...] reviewed 2021. Testing performed by: [facility], [address] [place] [address]., [address] Blood 07/12/2024 11:5 3 AM DIRECTOR OF ENTERPRISE APPLICATIONS 07/12/2024 11:58 AM DIRECTOR OF ENTERPRISE APPLICATIONS us Donna CUEVA LAB BLOOD ORDERABLES Final Re sult NILSA [address] [facility] Department [place] [address] * (ABNORMAL) Differential, auto (07/12/2024 11:53 AM DIRECTOR OF ENTERPRISE APPLICATIONS) Neutrophil abs 9.2(H) 1.5 - 6.5 K/cumm Comment:Testing performed by : [address] [address] Imm gran abs 0.1 0.0 - 0.1 K/cumm NILSA Comment:Testing performed by : [address] [address] Lymphocyte abs 1.5 0.8 - 3.3 K/cumm NILSA Comment:Testing performed by : [address] [address] Monocyte abs 0.5 0.2 - 0.8 K/cumm NILSA Comment:Testing performed by : [address] [address] Eosinophil abs 0.1 0.0 - 0.5 K/cumm NILSA Comment:Testing performed by : [address] [address] Basophil abs 0.0 0.0 - 0.1 K/cumm NILSA Comment:Testing performed by : [address] [address] Neutrophil pct 81.0 % NILSA Comment: Interpretive Data Percent cell count reference ranges are not reported, since discordance with absolute values may lead to misinterpretation of CBC data. Current Interpretive Data was last revised on 2017. Testing performed by: [address] [address] Imm gran pct 0.4 % NILSA Comment: Interpretive Data Percent cell count reference ranges are not reported, since discordance with absolute values may lead to misinterpretation of CBC data. Current Interpretive Data was last revised on 2017. Testing performed by: [address] [address] Lymphocyte pct 13.4 % [facility] Comment: Interpretive Data Percent cell count reference ranges are not reported, since discordance with absolute values may lead to misinterpretation of CBC data. Current Interpretive Data was last revised on 2017. Testing performed by: [address] [address] Monocyte pct 4.2 % [facility] Comment: Interpretive Data Percent cell count reference ranges are not reported, since discordance with absolute values may lead to misinterpretation of CBC data. Current Interpretive Data was last revised on 2017. Testing performed by: [address] [address] Eosinophil pct 0.6 % [facility] Comment: Interpretive Data Percent cell count reference ranges are not reported, since discordance with absolute values may lead to misinterpretation of CBC data. Current Interpretive Data was last revised on 2017. Testing performed by: [address] [address] Basophil pct 0.4 % [facility] Comment: Interpretive Data Percent cell count reference ranges are not reported, since discordance with absolute values may lead to misinterpretation of CBC data. Current Interpretive Data was last revised on 2017. Testing performed by: [address] [address] Blood 07/12/2024 11:5 3 AM DIRECTOR OF ENTERPRISE APPLICATIONS 07/12/2024 11:58 AM DIRECTOR OF ENTERPRISE APPLICATIONS us Donna CUEVA LAB BLOOD ORDERABLES Final Re sult NILSA RODRIGES [address] [facility] Department [place] [address] * Thyroid Function [place] (07/12/2024 11:53 AM DIRECTOR OF ENTERPRISE APPLICATIONS) TSH 1.22 0.30 - 4.20 mcIUnit/mL Comment:Testing performed by : [address] [address] Blood 07/12/2024 11:5 3 AM DIRECTOR OF ENTERPRISE APPLICATIONS 07/12/2024 11:58 AM DIRECTOR OF ENTERPRISE APPLICATIONS us Donna CUEVA LAB BLOOD ORDERABLES Final Re sult [facility] [address] [facility] Department [place] [address] * (ABNORMAL) CBC with auto differential (07/12/2024 11:53 AM DIRECTOR OF ENTERPRISE APPLICATIONS) WBC 11.3(H) 3.8 - 9.9 K/cumm Comment:Testing performed by : [address] [address] Hgb 12.3 11.9 - 15.5 g/dL NILSA Comment:Testing performed by : [address] [address] Hct 37.2 35.6 - 45.5 % NILSA Comment:Testing performed by : [address] [address] Plt 230 150 - 400 K/cumm NILSA Comment:Testing performed by : [address] [address] MPV 10.7 9.1 - 12.3 fL NILSA Comment:Testing performed by : [address] [address] RBC 3.85(L) 3.90 - 5.20 M/cumm NILSA Comment:Testing performed by : [address] [address] MCV 96.6(H) 81.3 - 96.4 fL NILSA Comment:Testing performed by : [address] [address] MCH 31.9 27.1 - 33.3 pg NILSA RODRIGES Comment:Testing performed by : [address] [address] MCHC 33.1 32.3 - 35.7 g/dL NILSA RODRIGES Comment:Testing performed by : [address] [address] RDW CV 15.7(H) 11.1 - 14.9 % NILSA RODRIGES Comment:Testing performed by : [address] [address] RDW SD 55.5(H) 35.7 - 48.1 fL NILSA RODRIGES Comment:Testing performed by : [address] [address] NRBC abs 0.00 0.00 - 0.01 K/cumm NILSA RODRIGES Comment:Testing performed by : [address] [address] Blood 07/12/2024 11:5 3 AM DIRECTOR OF ENTERPRISE APPLICATIONS 07/12/2024 11:58 AM DIRECTOR OF ENTERPRISE APPLICATIONS us Donna CUEVA LAB BLOOD ORDERABLES Final Re sult NILSA [address] [facility] Department [place] [address] * (ABNORMAL) Comprehensive metabolic panel (07/12/2024 11:53 AM DIRECTOR OF ENTERPRISE APPLICATIONS) Sodium 134(L) 135 - 145 mmol/L Comment:Testing performed by : [address] [address] Potassium, pl 4.6 3.3 - 4.9 mmol/L NILSA RODRIGES Comment: HEMOLYZED: Hemolysis interferes with the above test. Testing performed by: [address] [address] Chloride 93(L) 97 - 110 mmol/L NILSA Comment:Testing performed by : [address] [address] CO2 28 22 - 32 mmol/L NILSA RODRIGES Comment:Testing performed by : [address] [address] Anion gap 13 2 - 15 mmol/L NILSA RODRIGES Comment:Testing performed by : [address] [address] BUN 33(H) 6 - 25 mg/dL [facility] Comment:Testing performed by : [address] [address] Creatinine 4.60(H) 0.60 - 1.10 mg/dL [facility] Comment:Testing performed by : [address] [address] Glucose 177 70 - 199 mg/dL [facility] [...] was last revised 2022. Testing performed by: [address] [address] Calcium 9.5 8.5 - 10.3 mg/dL [facility] Comment:Testing performed by : [address] [address] Bilirubin, total 0.4 0.1 - 1.2 mg/dL [facility] Comment:Testing performed by : [address] [address] Protein, pl 8.2 6.5 - 8.5 g/dL [facility] Comment:Testing performed by : [address] [address] Albumin 3.9 3.5 - 5.0 g/dL [facility] Comment:Testing performed by : [address] [address] Alk phos 95 40 - 130 Units/L [facility] Comment:Testing performed by : [address] [address] ALT 24 7 - 45 Units/L [facility] Comment: HEMOLYZED: Hemolysis interferes with the above test. Testing performed by: [address] [address] AST 26 10 - 45 Units/L NILSA RODRIGES Comment: HEMOLYZED: Hemolysis interferes with the above test. Testing performed by: [facility], [address] [place] [address], [place]., [address] Blood 07/12/2024 11:5 3 AM DIRECTOR OF ENTERPRISE APPLICATIONS 07/12/2024 11:58 AM DIRECTOR OF ENTERPRISE APPLICATIONS Donna CUEVA LAB BLOOD ORDERABLES Final Re sult NILSA [address] [facility] Department [place] [address] * ECG 12 lead (07/12/2024 11:48 AM DIRECTOR OF ENTERPRISE APPLICATIONS) Ventricular Rate EKG/Min 77 BPM [facility] Atrial Rate 77 BPM [facility] TN-Interval (MSEC) 154 ms [facility] QRS-Interval (MSEC) 66 ms [facility] QT-Interval (MSEC) 412 ms [facility] QTc 466 ms [facility] P [place] 72 degrees [facility] R [place] 6 degrees [facility] T [place] 62 degrees [facility] Diagnosis Normal sinus rhythm Normal ECG When compared with ECG of 21-APR-2024 10:35, No significant change was found Confirmed by DIAMOND GUTIERREZ M.D. ([id number]) on 07/13/2024 9:26:23 PM [facility] 07/12/2024 11:4 8 AM DIRECTOR OF ENTERPRISE APPLICATIONS 07/13/2024 9:26 PM DIRECTOR OF ENTERPRISE APPLICATIONS Donna CUEVA ECG ORDERABLES Final Result Performing Organization Address [facility]/ZIP Co de Phone Number [facility] * CT Cervical Spine WO Contrast (07/12/2024 10:38 AM DIRECTOR OF ENTERPRISE APPLICATIONS) Anatomical Region Laterality Modality Spine N/A Computed Tomogra phy 07/12/2024 11:0 8 AM DIRECTOR OF ENTERPRISE APPLICATIONS Narrative 07/12/2024 11:13 AM DIRECTOR OF ENTERPRISE APPLICATIONS EXAM DESCRIPTION: CT CERVICAL SPINE WO CONTRAST [...] Wally Hernandez M.D. RB: AMADA Report ID: [id number] Reading Location: [id number] Procedure Note Wally Hernandez MD - 07/12/2024 [...] Wally Hernandez M.D. RB: AMADA Report ID: [id number] Reading Location: [place] [address] PROCEDURES Final Resul t * CT Facial Bones WO Contrast (07/12/2024 10:38 AM DIRECTOR OF ENTERPRISE APPLICATIONS) Anatomical Region Laterality Modality Head and Neck N/A Computed Tomogra phy 07/12/2024 11:0 3 AM DIRECTOR OF ENTERPRISE APPLICATIONS Narrative 07/12/2024 11:08 AM DIRECTOR OF ENTERPRISE APPLICATIONS EXAM DESCRIPTION: CT FACIAL BONES WO CONTRAST [...] Wally Hernandez M.D. RB: AMADA Report ID: [id number] Reading Location: [place] [address] Procedure Note Wally Hernandez MD - 07/12/2024 [...] Wally Hernandez M.D. RB: AMADA Report ID: [id number] Reading Location: [id number] Donna CUEVA IMG CT PROCEDURES Final Resul t * CT Head WO Contrast (07/12/2024 10:38 AM DIRECTOR OF ENTERPRISE APPLICATIONS) Anatomical Region Laterality Modality Head and Neck N/A Computed Tomogra phy 07/12/2024 10:5 9 AM DIRECTOR OF ENTERPRISE APPLICATIONS Narrative 07/12/2024 11:03 AM DIRECTOR OF ENTERPRISE APPLICATIONS EXAM DESCRIPTION: CT HEAD WO CONTRAST REASON [...] Wally Hernandez M.D. RB: AMADA Report ID: [id number] Reading Location: [id number] Procedure Note Wally Hernandez MD - 07/12/2024 [...] Wally Hernandez M.D. RB: AMADA Report ID: [id number] Reading Location: [id number] Donna CUEVA IMG CT PROCEDURES Final Resul t * XR Shoulder Right 2 or More Views (07/12/2024 10:08 AM DIRECTOR OF ENTERPRISE APPLICATIONS) Anatomical Region Laterality Modality Upper Extremities, Shoulder Right Comp uted Radiography 07/12/2024 10:1 4 AM DIRECTOR OF ENTERPRISE APPLICATIONS Narrative 07/12/2024 10:15 AM DIRECTOR OF ENTERPRISE APPLICATIONS EXAM DESCRIPTION: XR SHOULDER RIGHT 2 OR [...] Wally Hernandez M.D. RB: AMADA Report ID: [id number] Reading Location: [id number] Procedure Note Wally Hernandez MD - 07/12/2024 [...] Wally Hernandez M.D. RB: AMADA Report ID: [id number] Reading Location: [id number] Julio Landeros DO IMG XR PROCEDURES Final Result * XR Shoulder Left 2 or More Views (07/12/2024 10:08 AM DIRECTOR OF ENTERPRISE APPLICATIONS) Anatomical Region Laterality Modality Upper Extremities, Shoulder Left Comp uted Radiography 07/12/2024 10:1 3 AM DIRECTOR OF ENTERPRISE APPLICATIONS Narrative 07/12/2024 10:14 AM DIRECTOR OF ENTERPRISE APPLICATIONS EXAM DESCRIPTION: XR SHOULDER LEFT 2 OR [...] Wally Hernandez M.D. RB: AMADA Report ID: [id number] Reading Location: [id number] Procedure Note Wally Hernandez MD - 07/12/2024 [...] Wally Hernandez M.D. RB: AMADA Report ID: [id number] Reading Location: [id number] us Julio Landeros DO IMG XR PROCEDURES Final Result * POCT glucose (07/12/2024 9:33 AM DIRECTOR OF ENTERPRISE APPLICATIONS) Glucose, POC 164 70 - 199 mg/dL Comment:Testing performed by : [address], [address] Glucose comment 1 Use This Result NILSA RODRIGES Comment:Testing performed by : [facility], [address] [place] [address]., [id number] Blood 07/12/2024 9:33 AM DIRECTOR OF ENTERPRISE APPLICATIONS 07/12/2024 9:33 AM DIRECTOR OF ENTERPRISE APPLICATIONS Notinfile Unknown LAB POCT ORDERABLES - DEVICE F inal Result Performing Organization Address City/State/[facility] Co de Phone Number NILSA RODRIGES [address] [facility] [place] [address] * Lipid panel (05/16/2024 10:14 AM DIRECTOR OF ENTERPRISE APPLICATIONS) Cholesterol 160 30 - 199 mg/dL Comment: [...] NILSA DIAS Blood 05/16/2024 10:1 4 AM DIRECTOR OF ENTERPRISE APPLICATIONS 05/16/2024 10:50 AM DIRECTOR OF ENTERPRISE APPLICATIONS Narrative NILSA ELLIOTClarkeKECIA - 05/16/2024 11:23 AM DIRECTOR OF ENTERPRISE APPLICATIONS These lab test should be done fasting. This means do not eat or drink for at least 12 hours prior to getting your blood drawn. us Smith Gibbs MD LAB BLOOD ORDERABLES Final R esult NILSA ZARATECH [address] [facility]. Department [place] [address] * Colonoscopy (03/01/2024 8:49 AM CDT) Anatomical Region Laterality Modality Other Narrative Procedure Note Jaya Grier MD - 03/01/2024 8:49 AM CDT [facility] GI ENDOSCOPY Patient Name: Sixto Chakraborty Procedure Date: 03/01/2024 8:49 AM Date of : 1950 Admit Type: Outpatient Age: 73 Gender: Female Attending MD: Jaya Grier M.D. Room: [facility] ENDOSCOPY ROOM 06 Note Status: Finalized Procedure: [...] The scope was passed under direct vision.The [id number] colonoscope was introduced through theanus and advanced [...] On: 03/01/2024 8:49 AM Recognized by the [employer] for promoting quality [...] taking vitamin-D. History of end-stage renal disease. 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 TW: TW Report ID: [id number] Reading Location: [id number] Procedure Note Rafaela Paulino MD - 01/22/2024 EXAM DESCRIPTION: DEXA AXIAL SKELETON BONE DENSITY 1 OR MORE SITES REASON FOR STUDY: 73 y/o year old F with given history of: Post menopausal status. History of taking vitamin-D. History of end-stagerenal disease. 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 TW: TW Report ID: [id number] Reading Location: [id number] us Cherelle Corcoran MD IMG DXA PROCEDURE [...] age 40, based on guidelines of the [employer] (ACR Practice Parameter for the Performance of Screening and Diagnostic Mammography) and [employer]. For women [...] 19. Hep B core IgM Nonreactive Nonreactive [facility] Comment: Interpretive Data If HepB Core IgM [...] revised on 2019. HepBsAg Nonreactive [facility]reactive [facility] Blood 10/15/2023 6:50 AM CDT 10/15/2023 7:07 AM CDT Jimbo Strauss MD LAB MICROBIOLOGY - GENERAL FREDDY HALEY Final Result NILSA [address] Department [place] [address] * (ABNORMAL) Albumin Creatinine Ratio, Urine (10/10/2022 11:39 AM CDT) Albumin Ur 3,240.2 mg/L NILSA Comment: Interpretive Data No reference range established. Current interpretive data was last revised 2018. Testing performed by: [facility], [address] [place] [address]., [id number] Creatinine Ur 74.8 mg/dL NILSA Comment: Interpretive Data No reference range established. Current interpretive data was last revised 2018. Testing performed by: [facility], [address] [place] [address]., [id number] Albumin Creatinine Ratio, Ur 4,332(H) 1 - 29 mg/g NILSA Comment:Testing performed by : [facility], [address] [place] [address]., [id number] Urine 10/10/2022 11:3 9 AM CDT 10/10/2022 1:45 PM CDT us Markie Ryan MD LAB URINE ORDERABLES Final Re sult Performing Organization Address City/State/[facility] Co de Phone Number NILSA [address] [facility] [place] [address] from Last 3 Months or Most Recently Relevant to Health Maintenance Insurance MEDICARE MEDICARE [employer] MEDICARE [facility] MEDICARE IDCT Advance Directives For more information, please contact: [phone] Documents on File Type Date Recorded 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 ADVANCE DIRECTIVE 07/15/2024 7:58 AM Power of [employer] ADVANCE DIRECTIVE 02/02/2024 12:34 PM Erik r of [employer] * Full Code (Latest Code Status on [...] Gayle Daughter Health Care Agent Care Teams Application Architect Manager Relationship Specialty Start Date End Date Cherelle Corcoran MD PCP - General Family Medicine 08/30/19 Mark Queen MD Consulting Physician Infectious Diseases 01/10/20 Rudolph Welch MD [address] [facility] [address] [place] [address] Consulting Physician Infectious Diseases 12/05/22 Markie Ryan MD [address] [place] [address] Consulting Physician Nephrology 12/05/22 [place] [address] [address] Consulting Physician Nephrology 10/22/23 Jaya Grier MD [address] [place] [address] Consulting Physician Gastroenterology 02/01/24 Edgardo Kauffman MD [address] [address] [place] [address] Surgeon Vascular Surgery 07/15/24
--- OUTSIDE RECORDS SUMMARY | 2024-09-21 14:58 | XMS_ITS | Referral Summary ---
Author Organization [facility] Address [address] [place] [address] Care Team Providers Care Armhole Feller Handstitching Machine Name Role Phone Cherelle Corcoran MD Primary Care Pro vider aMrk Queen MD Unavailable [phone] Rudolph Welch MD Unavailable Markie Ryan MD Unavailable Jimbo Strauss MD Unavailable [phone] Jaya Grier MD Unavailable Edgardo Kauffman MD Unavailable [phone] Encounters Date Type Department Care Team Description 09/22/19 25 Nurse Triage [facility] Primary Care at [place] [address] [place] [phone] Cherelle Corcoran MD 09/15/19 25 Results Follow-Up [facility] Gastroenterology at [place] [address] [facility] [facility] [address] [place] [phone] Jaya Grier MD 09/14/19 25 9:19 AM CDT Anesthesia Event [facility] GI Lab [address] [place] [address] Sarahy Hernandez MD 09/14/19 8:00 AM CDT - 09/14/19 8:30 AM CDT Surgery [facility] GI Lab [address] [place] [address] Jaya Grier MD ESOPHAGOGASTRODUODENOSCOPY BIOPSY 09/14/19 7:54 AM CDT - 09/14/19 10:32 AM CDT Hospital Encounter [facility] GI Lab [address] [place] [address] Jaya Grier MD Ulcer of esophagus without bleeding; Gastroesophageal reflux disease without esophagitis Discharge Disposition: Discharge to home or self care 09/09/19 9:00 AM CDT Office Visit [facility] Orthopedics and Sports Medicine [address] [facility] [facility] [address] [place] [address] Brook Muhammad NP Myofascial pain syndrome, cervical (Primary Dx); Chronic neck pain; Foraminal stenosis of cervical region, diffuse bilateral; Arthropathy of cervical facet joint; DDD (degenerative disc disease), cervical, C3-C4 through C6-C7; Cervical spinal osteophytosis, multilevel 09/01/19 2:15 PM CDT Office Visit [facility] Cardiology [address] [phone] Santo Vail MD Dyspnea, unspecified type (Primary Dx) 08/23/19 8:20 AM NUCLEAR SUPERVISING OPERATOR Office Visit [facility] Endocrinology Metabolism and Lipid [address] [facility] [address], [address] [place] [address] Smith Gibbs MD Type 2 diabetes mellitus with diabetic nephropathy, with long-term current use of insulin (HCC) (Primary Dx); Type 2 diabetes mellitus with diabetic neuropathy, with long-term current use of insulin (HCC); Mixed hyperlipidemia; ESRD on hemodialysis (HCC); Primary hypertension 08/18/19 8:15 AM NUCLEAR SUPERVISING OPERATOR Telemedicine [facility] Behavioral Health [address] [facility] [facility] [address] [place] [address] Adryan Swenson MD Schizoaffective disorder, bipolar type (HCC) (Primary Dx) 08/17/19 25 Telephone [facility] Primary Care at [address] [place] [phone] Cherelle Corcoran MD Medical Question/Miscellaneous 08/02/19 25 [facility] ED Outreach [address] [address] Felicia Garcia MA 08/02/19 25 Nurse Triage [facility] Primary Care at [address] [place] [phone] Cherelle Corcoran MD 07/31/19 25 9:25 PM NUCLEAR SUPERVISING OPERATOR - 07/31/19 25 10:27 PM NUCLEAR SUPERVISING OPERATOR Emergency [facility] Emergency Department [address] [place] [address] Discharge Disposition: Left without being seen 07/27/19 25 Orders Only [facility] Endocrinology Metabolism and Lipid [address] [facility] 13th [place] [address] [place] [address] Joe Ballard MD 07/21/19 25 Telephone [facility] Dialysis Access Center at [address] [place] [address] Varsha Oneill RN 07/18/19 25 Orders Only [facility] Gastroenterology at [address] [place] [phone] Jaya Grier MD Ulcer of esophagus without bleeding (Primary Dx) 07/18/19 25 2:45 PM NUCLEAR SUPERVISING OPERATOR Office Visit [facility] Medical [facility] Primary Care at [address] [place] [phone] Cherelle Corcoran MD Fall, subsequent encounter (Primary Dx); Neck pain; Pressure injury of buttock, stage 1, unspecified laterality 07/15/19 25 2:30 PM NUCLEAR SUPERVISING OPERATOR - 07/15/19 25 11:59 PM NUCLEAR SUPERVISING OPERATOR Hospital Encounter [facility] Dialysis Access Center at [address] [place] [address] ESRD (end stage renal diseas e) on dialysis (HCC) (Primary Dx) Discharge Disposition: Discharge to home or self care 07/15/19 10:00 AM NUCLEAR SUPERVISING OPERATOR - 07/15/19 11:00 AM NUCLEAR SUPERVISING OPERATOR Surgery [facility] Cardiac President & Founder [address] [place] [address] Edgardo Kauffamn MD PERMACATH EXCHANGE [[id number] (CPT )] 07/15/19 9:13 AM NUCLEAR SUPERVISING OPERATOR - 07/15/19 1:20 PM NUCLEAR SUPERVISING OPERATOR Hospital Encounter [facility] Cardiac President & Founder [address] [place] [address] Edgardo Kauffman MD ESRD (end stage renal disease) on dialysis (HCC) Discharge Disposition: Discharge to home or self care 07/14/19 12:35 PM NUCLEAR SUPERVISING OPERATOR - 07/14/19 11:59 PM NUCLEAR SUPERVISING OPERATOR Hospital Encounter [facility] Diagnostic Imaging [address] [place] [address] Discharge Disposition: Discharge to home or self care 07/14/19 12:11 PM NUCLEAR SUPERVISING OPERATOR - 07/14/19 11:59 PM NUCLEAR SUPERVISING OPERATOR Hospital Encounter [facility] Dialysis Access Center at [facility] [address] [facility] [facility] [address] [place] [address] ESRD (end stage renal diseas e) on dialysis (HCC) (Primary Dx); Type 2 diabetes mellitus with diabetic neuropathy, with long-term current use of insulin (HCC); Hypertension associated with diabetes (HCC); ESRD on hemodialysis (HCC); Hyperlipidemia associated with type 2 diabetes mellitus (HCC) Discharge Disposition: Discharge to home or self care 07/13/19 Nurse Triage [facility] Medical Group Primary Care at [address] [place] [address] Cherelel Corcoran MD 07/13/19 JOY ED Outreach [facility] Accountable Care Organization [address] [place] [address] Ale Goldstein MA 07/13/19 11:03 AM NUCLEAR SUPERVISING OPERATOR Anesthesia Event [facility] GI Lab [address] [place] [address] Larry Valdivia MD 07/13/19 9:00 AM NUCLEAR SUPERVISING OPERATOR - 07/13/19 9:30 AM NUCLEAR SUPERVISING OPERATOR Surgery [facility] GI Lab [address] [place] [address] Jaya Grier MD ESOPHAGOGASTRODUODENOSCOPY BIOPSY 07/13/19 8:39 AM NUCLEAR SUPERVISING OPERATOR - 07/13/19 12:26 PM NUCLEAR SUPERVISING OPERATOR Hospital Encounter [facility] GI Lab [address] [place] [address] Jaya Grier MD Anemia, unspecified type; Gastritis without bleeding, unspecified chronicity, unspecified gastritis type; Gastritis, presence of bleeding unspecified, unspecified chronicity, unspecified gastritis type Discharge Disposition: Discharge to home or self care 07/12/19 11:16 AM NUCLEAR SUPERVISING OPERATOR - 07/12/19 3:44 PM [facility] Emergency [facility] Emergency Department [address] [place] [address] Fall, initial encounter (Primary Dx); Acute cystitis without hematuria Discharge Disposition: Discharge to home or self care 07/12/19 Telephone [facility] Primary Care at [address] [phone] Cherelle Corcoran MD Medical Question/Miscellaneous 07/11/19 Nurse Triage [facility] Primary Care at [address] [phone] Cherelle Corcoran MD 07/08/19 1:00 PM [facility] Office Visit [facility] Primary Care at [address] [phone] Cherelle Corcoran MD Altered mental status, unspecified [...] disease without esophagitis; Frailty 07/07/19 1:30 PM NUCLEAR SUPERVISING OPERATOR Office Visit [facility] Endocrinology Metabolism and Lipid [address] [place] [address] Medical [address], [address] [place] [address] Pippa Troy NP Type 2 diabetes mellitus with diabetic nephropathy, with long-term current use of insulin (HCC) (Primary Dx); Dyslipidemia; Primary hypertension 07/07/19 3:00 PM NUCLEAR SUPERVISING OPERATOR Office Visit [facility] Cardiology [address] [facility] [address] [place] [address] Santo Vail MD Dyspnea, unspecified type (Primary Dx) 07/04/19 25 Telephone [facility] Primary Care at [place] [address] [place] [address] Cherelle Corcoran MD JOY Questions 06/27/19 25 Nurse Triage [facility] Primary Care at [place] [address] [facility] [address] [place] [address] Cherelle Corcoran MD from Last 3 Months Allergies No known active allergies Medications lidocaine (ASPERCREME) 4 % adhesive patch,medicated Place 1 patch on the skin daily as needed to lower back Active polyethylene glycol (MIRALAX) 17 gram/dose bulk powder Take 17 g by mouth daily as needed (Constipation) 595 g 024 Active FreeStyle Madhav 3 [facility] Use Madhav 3 reader to scan Madhav [...] long-term current use of insulin ([facility]) 1 each by other route daily 100 strip 3 Active blood-glucose sensor (FreeStyle Madhav 3 Plus Sensor) deviceIndications :Type 2 diabetes mellitus with diabetic nephropathy, with long-term current use of insulin ([facility]) Use to continually monitor glucose, change sensor every 15 days 6 each 3 02/12/2 025 Active risperiDONE (RisperDAL) 2 mg tablet [...] long-term current use of insulin ([facility]) Use Madhav 3 reader to scan [...] 07/07/2024 Assessment & Plan (07/14/2024 2:30 PM NUCLEAR SUPERVISING OPERATOR): Continue Lipitor Assessment & Plan (07/14/2024 8:56 AM NUCLEAR SUPERVISING OPERATOR): Ok to restart atorvastatin, but also given [...] 11/02/2023 Assessment & Plan (07/14/2024 2:39 PM NUCLEAR SUPERVISING OPERATOR): Patient is needing a Perma catheter exchange [...] proceed. Assessment & Plan (07/14/2024 8:51 AM NUCLEAR SUPERVISING OPERATOR): Following with nephrology Assessment & Plan (01/06/2024 [...] 10/30/2023 Assessment & Plan (05/06/2024 7:49 AM NUCLEAR SUPERVISING OPERATOR): Reviewed hospital discharge summary Now resolved Upcoming [...] stable Assessment & Plan (07/24/2023 1:51 PM NUCLEAR SUPERVISING OPERATOR): Chronic/stable Parkinsonism 08/14/2022 Assessment & Plan (07/14/2024 8:54 AM NUCLEAR SUPERVISING OPERATOR): Following with neurology, recommend reaching out to them in regards to restarting benztropine. Consider waiting until after restarts other medications given daughter reports tremors controlled off benztropine currently Assessment & Plan (11/10/2023 4:43 PM CDT): Following with neurology On cogentin Assessment & Plan (07/24/2023 1:50 PM NUCLEAR SUPERVISING OPERATOR): Following with neurology On cogentin twice a day Assessment & Plan (01/23/2023 9:20 AM CDT): Following with neurology On cogentin twice a day Assessment & Plan (10/10/2022 10:41 AM CDT): Following with neurology On cogentin Assessment & Plan (08/14/2022 10:46 AM NUCLEAR SUPERVISING OPERATOR): Following with neurology, reviewed note On cogentin [...] walker. - PT/OT recommends SNF. -Plan [facility] on 11/26 ? Assessment & Plan (11/24/2021 2:07 PM CDT): Deconditioning 2/2 prolonged hospitalization. Daughter reports that prior to her illness, she was independent with a walker. - PT/OT recommends SNF. -Plan [facility], [facility] on 11/25. Assessment & Plan (11/23/2021 12:24 PM CDT): Deconditioning 2/2 prolonged hospitalization. Daughter reports that prior to her illness, she was independent with a walker. - PT/OT recommends SNF. -Plan [facility] on 11/25. Assessment & Plan (11/22/2021 1:34 PM CDT): Deconditioning 2/2 prolonged hospitalization. Daughter reports that prior to her illness, she was independent with a walker. - PT/OT recommends SNF. -Plan [facility], SNF on 11/25. Assessment & Plan (11/21/2021 [...] care Assessment & Plan (08/14/2022 10:47 AM NUCLEAR SUPERVISING OPERATOR): Following with podiatry Assessment & Plan (04/02/2022 [...] Goal weight 155lbs -Home with family at [place], rug dyer helper consulted to review salt restrictions. -outpatient BMP, [...] - renal consulted regarding volume management, possible fdc dialysis planning, expedite OP f/u. Serologies and urine studies ordered. ED neg, compliments neg, cryoglobulin pending, ANCA pending, HIV neg. Continued -Added metolazone 2.5mg/daily per renal 09/13- with improving swelling, Cr bump to 2.33 so held further -Anticipate likely transition to PO agents prior to DC (?09/17) with ongoing clinical improvement. Goal weight 155lbs -Home with family at [place], rug dyer helper consulted to review salt restrictions. Assessment & [...] - renal consulted regarding volume management, possible fdc dialysis planning, expedite OP f/u. Serologies and urine studies ordered. -Added metolazone 2.5mg/daily per renal. -Anticipate likely transition to PO agents prior to DC with ongoing clinical improvement. Goal weight 145-150lbs -Home with family at [place], rug dyer helper consulted to review salt restrictions. Assessment & [...] - renal consulted regarding volume management, possible fdc dialysis planning, expedite OP f/u. Serologies and [...] - renal consulted regarding volume management, possible fdc dialysis planning, expedite OP f/u. Assessment & [...] 08/19/2021 Assessment & Plan (07/14/2024 8:53 AM NUCLEAR SUPERVISING OPERATOR): Following with neurology Assessment & Plan (01/05/2024 10:40 PM CDT): Follows with neurology. -continue risperidone 2mg QHS -continue benztropine 2mg daily Assessment & Plan (11/10/2023 4:37 PM CDT): Following with neurology Assessment & Plan (07/24/2023 1:50 PM NUCLEAR SUPERVISING OPERATOR): Following with neurology Assessment & Plan (01/23/2023 9:18 AM CDT): Following with neurology Assessment & Plan (10/10/2022 10:37 AM CDT): Following with neurology, ordered MRI, # given to son to schedule Assessment & Plan (06/09/2022 3:37 PM NUCLEAR SUPERVISING OPERATOR): Needs to reschedule with neurology Looking into group home, but declined for [facility] for schizoaffective disorder Assessment & Plan (01/14/2022 9:05 AM CDT): Following with psychiatry Assessment & Plan (09/03/2021 3:28 PM CDT): Chronic, stable. Alert, oriented to self, current place. Continue to monitor. Clock drawing test at next interval. Consideration for Aricept. Encounter for Medicare annual wellness exam 12/21 Assessment & Plan (11/10/2023 4:42 PM CDT): Reviewed [facility] & PHQ Screening PHQ-2 Total Score (If total score is 3 or more points, staff should administer the PHQ-9): 2 Hearing/vision screening reviewed, referrals placed as needed Fall risk reviewed Reviewed medications and supplements Specialists: endocrine, nephrology, cardiology, neurology, psychiatry evidence of cognitive impairment HCM: orders placed as needed Assessment & Plan (06/09/2022 3:37 PM NUCLEAR SUPERVISING OPERATOR): Reviewed [facility] PHQ Screening PHQ-2 Total Score (If total score is 3 or more points, staff should administer the PHQ-9): 0 Hearing/vision screening reviewed, referrals placed as needed Fall risk reviewed Reviewed medications and supplements Specialists: endocrine, nephrology, cardiology, neurology evidence of cognitive impairment HCM: orders placed as needed Assessment & Plan (01/08/2021 3:44 PM CDT): Reviewed [facility] PHQ Screening PHQ-2 Total Score (If total [...] type Assessment & Plan (08/18/2024 8:44 AM NUCLEAR SUPERVISING OPERATOR): Chronic, stable. Does not report any stephanie [...] discussed. Assessment & Plan (07/14/2024 8:54 AM NUCLEAR SUPERVISING OPERATOR): Following with psychiatry, recommend reaching out to [...] psychiatry Assessment & Plan (07/24/2023 1:50 PM NUCLEAR SUPERVISING OPERATOR): Following with psychiatry Assessment & Plan (01/23/2023 [...] discussed. Assessment & Plan (08/09/2021 5:42 AM NUCLEAR SUPERVISING OPERATOR): Following with psychiatry Assessment & Plan (08/07/2021 3:28 PM NUCLEAR SUPERVISING OPERATOR): Chronic condition, switch to Haldol and has had multiple different problems including acute kidney failure in infectious process. Records not available at outside hospital-[facility] [place]. Confounded by delirium. Currently experiencing delirium will discontinue Haldol and return to Risperdal as previously taking. Risperdal was discontinued due to poorly-controlled diabetes. Monitor in 1 to 2 weeks. Assessment & Plan (07/03/2021 7:24 AM NUCLEAR SUPERVISING OPERATOR): Following with psychiatry D/c risperidone, started on haldol Assessment & Plan (07/01/2021 9:16 PM NUCLEAR SUPERVISING OPERATOR): Chronic, stable. +persistent auditory hallucinations Discontinue Risperdal [...] Reviewed all of those notes-primary care doctor, furnace hand, courtroom deputy. The patient previously lived on her own and was observed to be hoarding. See additional problems-dementia. Evaluate again in 1 month after starting Risperdal. Iron deficiency anemia 04/02/2020 Assessment & Plan (05/06/2024 7:51 AM NUCLEAR SUPERVISING OPERATOR): Recommend discussing IV iron with nephrology Assessment & Plan (10/02/2020 4:35 PM CDT): Continue iron Assessment & Plan (05/28/2020 1:51 PM NUCLEAR SUPERVISING OPERATOR): Iron levels recently normalized, but still anemic, repeat today Assessment & Plan (04/16/2020 11:45 AM CDT): Recent iron within normal limits, H/H improving, continue supplementation until normalized Gastroesophageal reflux disease without esophagi tis 04/02/2020 Assessment & Plan (07/14/2024 8:56 AM NUCLEAR SUPERVISING OPERATOR): Restart protonix Upcoming EGD Assessment & Plan (01/05/2024 10:40 PM CDT): -continue famotidine Assessment & Plan (10/02/2020 4:35 PM CDT): Continue omeprazole Assessment & Plan (07/24/2020 2:06 PM NUCLEAR SUPERVISING OPERATOR): Recurrent symptoms off omeprazole, restart Assessment & Plan (05/28/2020 1:51 PM NUCLEAR SUPERVISING OPERATOR): Iron levels recently normalized, but still anemic, repeat today Assessment & Plan (04/02/2020 1:26 PM CDT): Start PPI History of amputation of toe 01/19/2020 Assessment & Plan (01/08/2021 3:50 PM CDT): Stable Assessment & Plan (10/02/2020 4:35 PM CDT): Stable Assessment & Plan (04/30/2020 1:00 PM NUCLEAR SUPERVISING OPERATOR): Stable Assessment & Plan (02/14/2020 5:15 PM CDT): Healing well Following with surgeon/wound clinic Assessment & Plan (01/19/2020 5:17 PM CDT): Has home health Following with vascular Hypertension associated with diabetes 12/13/2019 Assessment & Plan (07/14/2024 2:32 PM NUCLEAR SUPERVISING OPERATOR): Continue carvedilol, hydralazine Assessment & Plan (07/14/2024 8:51 AM NUCLEAR SUPERVISING OPERATOR): BP controlled today off medication Daughter reports nephrology said could restart medication, is planning to restart coreg first and monitor blood pressure prior to restarting nifedipine/hydralazine Assessment & Plan (05/06/2024 7:48 AM NUCLEAR SUPERVISING OPERATOR): BP controlled Continue nifedipine, hold prior to [...] x1 with HD. Most recent admission at [facility] with initiation of hydralazine and [...] amlodipine Assessment & Plan (08/03/2023 4:02 PM NUCLEAR SUPERVISING OPERATOR): BP uncontrolled Start 5mg amlodipine Assessment & Plan (07/24/2023 1:49 PM NUCLEAR SUPERVISING OPERATOR): Blood pressure borderline today off medications Assessment & Plan (01/23/2023 9:18 AM CDT): Blood pressure borderline low today, asymptomatic Checking labs Advised to decrease amlodipine to 5mg and monitor blood pressure Assessment & Plan (10/10/2022 10:50 AM CDT): Continue coreg 6.25mg twice a day & 40mg valsartan Assessment & Plan (08/14/2022 10:43 AM NUCLEAR SUPERVISING OPERATOR): Blood pressure at goal, continue coreg 6.25mg twice a day Assessment & Plan (06/09/2022 3:32 PM NUCLEAR SUPERVISING OPERATOR): Blood pressure at goal, continue coreg 3.125mg [...] day Assessment & Plan (08/05/2021 10:35 AM NUCLEAR SUPERVISING OPERATOR): Blood pressure at goal Increase amlodipine to 10mg & d/c hydralazine per cardiology Assessment & Plan (05/28/2021 4:59 PM NUCLEAR SUPERVISING OPERATOR): Blood pressure above goal, but previously within [...] lisinopril Assessment & Plan (08/28/2020 12:12 PM NUCLEAR SUPERVISING OPERATOR): Blood pressure at goal Continue lisinopril Assessment & Plan (07/24/2020 2:05 PM NUCLEAR SUPERVISING OPERATOR): Blood pressure at goal Continue lisinopril Assessment & Plan (05/28/2020 1:50 PM NUCLEAR SUPERVISING OPERATOR): BP borderline Continue 10mg lisinopril Continue to monitor Assessment & Plan (04/30/2020 12:32 PM NUCLEAR SUPERVISING OPERATOR): BP borderline Continue 10mg lisinopril Continue to [...] 08/30/2019 Assessment & Plan (07/14/2024 2:31 PM NUCLEAR SUPERVISING OPERATOR): Controlled. Continue as per Endocrine and PCP Assessment & Plan (07/14/2024 8:50 AM NUCLEAR SUPERVISING OPERATOR): Following with endocrine, reviewed note Holding insulin [...] +SSI Assessment & Plan (07/24/2023 1:49 PM NUCLEAR SUPERVISING OPERATOR): Lab Results Component Value Date HGBA1C 8.1 [...] trulicity Assessment & Plan (08/14/2022 10:42 AM NUCLEAR SUPERVISING OPERATOR): Following with endocrine Continue lantus, 12 units humalog TIDAC & 1.5mg trulicity Assessment & Plan (06/09/2022 3:32 PM NUCLEAR SUPERVISING OPERATOR): Following with endocrine Home blood sugar at [...] for strict med oversight by family at [place] reviewed with daughter this admit. Assessment & [...] for strict med oversight by family at [place] reviewed with daughter this admit. Assessment & [...] and nephropathy. Med oversight by family at [place]. Assessment & Plan (09/14/2021 12:22 PM CDT): [...] as she had discussed this with outpatient physician locums urgent care - repeat A1c - resume home statin, not currently on feliciano due to kidney function Assessment & Plan (08/05/2021 10:35 AM NUCLEAR SUPERVISING OPERATOR): Continue 15 units lantus twice a day Assessment & Plan (07/03/2021 7:24 AM NUCLEAR SUPERVISING OPERATOR): Fasting blood sugar significantly improved Risperidone changed Continue current meds Continue to monitor Assessment & Plan (06/18/2021 11:22 AM NUCLEAR SUPERVISING OPERATOR): Increase lantus to 60 units nightly, if blood sugar still above goal after 1 week split into 33 units twice a day Follow up with blood sugar via portal in 2 weeks Continue jardiance 25mg Continue trulicity 4.5mg weekly Assessment & Plan (05/28/2021 4:58 PM NUCLEAR SUPERVISING OPERATOR): Increase lantus to 55 units nightly Continue [...] weekly Assessment & Plan (08/28/2020 1:00 PM NUCLEAR SUPERVISING OPERATOR): DM Care Plan: Meds: Lantus - continue [...] recheck Assessment & Plan (07/24/2020 2:05 PM NUCLEAR SUPERVISING OPERATOR): Formulary change 2/2 insurance, switched to trulicity. Will increase to 1.5mg Assessment & Plan (05/28/2020 1:50 PM NUCLEAR SUPERVISING OPERATOR): Check a1c Sixto isn't checking blood sugar regularly, but when she is she has several >200 so I lean towards increasing if a1c>7 Assessment & Plan (04/30/2020 12:31 PM NUCLEAR SUPERVISING OPERATOR): Blood sugar improved on 40 units basaglar [...] treated at [facility] for PNA with prolonged course of antibiotics: [...] treated at [facility] for PNA with prolonged course of antibiotics: [...] treated at [facility] for PNA with prolonged course of antibiotics: [...] treated at [facility] for PNA with prolonged course of antibiotics: [...] [facility] [facility] [place] for PNA with prolonged course of antibiotics: [...] treated at [facility] [place] for PNA with prolonged course of antibiotics: [...] treated at [facility] [place] for PNA with prolonged course of antibiotics: [...] treated at [facility] [place] for PNA with prolonged course of antibiotics: [...] treated at [facility] [place] for PNA with prolonged course of antibiotics: [...] treated at [facility] [place] for PNA with prolonged course of antibiotics: [...] 11/10/2023 Assessment & Plan (08/14/2022 10:44 AM NUCLEAR SUPERVISING OPERATOR): Continue eliquis Assessment & Plan (06/09/2022 3:36 PM NUCLEAR SUPERVISING OPERATOR): Continue eliquis Assessment & Plan (04/02/2022 6:05 [...] 10/10/2022 Assessment & Plan (08/07/2021 3:30 PM NUCLEAR SUPERVISING OPERATOR): Subacute, persistent, hospitalized recently. She is alert [...] Impression: Patient recently had MRI performed at [facility] which revealed acute osteomyelitis to the distal [...] 08/28/2020 Assessment & Plan (05/28/2020 1:52 PM NUCLEAR SUPERVISING OPERATOR): Encouraged to follow up with wound clinic for reassessment Assessment & Plan (04/30/2020 12:31 PM NUCLEAR SUPERVISING OPERATOR): Following with wound clinic Assessment & Plan [...] acute osteomyelitis on recent MRI performed at [facility]. She is being treated with [...] nightly Assessment & Plan (08/14/2022 10:42 AM NUCLEAR SUPERVISING OPERATOR): Continue lyrica 150mg nightly Assessment & Plan (06/09/2022 3:32 PM NUCLEAR SUPERVISING OPERATOR): Continue lyrica 150mg nightly Assessment & Plan [...] status. Assessment & Plan (05/28/2021 4:58 PM NUCLEAR SUPERVISING OPERATOR): Continue lyrica 150mg nightly Assessment & Plan (04/05/2021 4:46 PM CDT): Uncontrolled Increase lyrica to 150mg nightly (AM dose d/c 2/ fatigue) Assessment & Plan (03/07/2021 4:44 PM [...] gabapentin Assessment & Plan (08/28/2020 1:00 PM NUCLEAR SUPERVISING OPERATOR): On gabapentin Assessment & Plan (07/24/2020 2:05 PM NUCLEAR SUPERVISING OPERATOR): Continue gabapentin Assessment & Plan (04/02/2020 1:22 [...] Recorded In the past 12 months has [employer], oil, or water [employer] threatened to shut off services in your [...] week 04/20/2024 How often do you attend [facility] or voodoo services? More than 4 times [...] in a [facility] (including now)? No 10/30/2023 PHQ-9 Answer Date [...] time in the [facility], were you homeless or living [...] file Legal Sex Female 9:03 AM NUCLEAR SUPERVISING OPERATOR Gender Identity Female 02/08/2020 6:39 PM [...] blood loss Medical Devices Implanted Type Area English Language Learner Tutor Device Identifier Shelf Expiration Date Model / Serial / Lot [facility] [employer] Duramax Vascpak Safesheath D-Pro 15.5fr 24cm Kit Catheter [id number] - [id number] Implanted:Qty: 1 on 10/15/[address] [facility] [employer] 10/19/2025 [id number] 85 / / [id number] [facility] [employer] Duraflow Embosafe 15.5fr 24cm Basic 2 Lumen Kit Catheter [id number] - [id number] Implanted:Qty: 1 on 07/15/2024 by Edgardo Kauffman MD at [facility] [employer] 08/19/2026 [id number] 15 / / [id number] Procedures Procedure Name Priority Date/Time Associated Diagnosis Comments POCT GLUCOSE DEVICE Routine 09/13/2024 9:47 AM CDT SURGICAL PATHOLOGY Routine 09/13/2024 9:28 AM CDT Ulcer of esophagus without bleeding ESOPHAGOGASTRODUODENOSCOPY BIOPSY 09/13/2024 9:20 AM CDT Ulcer of esophagus without bleeding EGD 09/13/2024 9:17 AM CDT POC BLOOD GAS AND CHEMISTRIE S, VENOUS Routine 09/13/2024 8:54 AM CDT AL INJECTION SINGLE/GANG SAW OPERATOR TRIGGER POINT 1/2 MUSCLES Routine 09/08/2024 9:00 AM CDT Myofascial pain syndrome, cervical CT HEAD WO CONTRAST Schedule Routine, Read Routine (OP Routine) 09/07/2024 POCT HEMOGLOBIN A1C Routine 08/22/2024 8:55 AM NUCLEAR SUPERVISING OPERATOR Type 2 diabetes mellitus with diabetic nephropathy, with long-term current use of insulin (HCC) RESPIRATORY PATHOGEN PANEL STAT 07/31 1:02 PM NUCLEAR SUPERVISING OPERATOR DIABETIC EYE EXAM Routine 07/27/2024 12:37 PM NUCLEAR SUPERVISING OPERATOR HM DIABETES EYE EXAM Routine 07/22/2024 XR CHEST 1 VIEW ED Urgent/IP Urgent 07/15/2024 1:11 PM NUCLEAR SUPERVISING OPERATOR RPL DRE CVC W/O PUMP [id number] Routine 07/15 12:40 PM NUCLEAR SUPERVISING OPERATOR ESRD (end stage renal disease) on dialysis (HCC) XR CHEST 1 VIEW ED Urgent/IP Urgent 07/14/2024 1:16 PM NUCLEAR SUPERVISING OPERATOR EGFR STAT 07/14/2024 12:34 PM NUCLEAR SUPERVISING OPERATOR DIFFERENTIAL AUTO STAT 07/14/2024 12:34 PM NUCLEAR SUPERVISING OPERATOR BASIC METABOLIC PANEL STAT 07/14/2024 12:34 PM NUCLEAR SUPERVISING OPERATOR CBC WITH AUTO DIFFERENTIAL STAT 07/14 12:34 PM NUCLEAR SUPERVISING OPERATOR SURGICAL PATHOLOGY Routine 07/13/2024 11:10 AM NUCLEAR SUPERVISING OPERATOR Anemia, unspecified type Gastritis without bleeding, unspecified chronicity, unspecified gastritis type ESOPHAGOGASTRODUODENOSCOPY BIOPSY 07/13/2024 11:03 AM NUCLEAR SUPERVISING OPERATOR Anemia, unspecified type Gastritis without bleeding, unspecified chronicity, unspecified gastritis type EGD 07/13/2024 10:59 AM NUCLEAR SUPERVISING OPERATOR POC BLOOD GAS AND CHEMISTRIE S, VENOUS Routine 07/13/2024 10:12 AM NUCLEAR SUPERVISING OPERATOR TROPONIN T HIGH-SENSITIVITY 2-HOUR Timed 07/12/2024 1:59 PM NUCLEAR SUPERVISING OPERATOR URINALYSIS, MICROSCOPIC ONLY STAT 1:05 PM NUCLEAR SUPERVISING OPERATOR DRUGS OF ABUSE SCREEN, URINE WITHOUT CONFIRMATION STAT 07/12/2024 1:05 PM NUCLEAR SUPERVISING OPERATOR URINE CULTURE STAT 07/12/2024 1:05 PM NUCLEAR SUPERVISING OPERATOR URINALYSIS AND REFLEX TO MICROSCOPIC AND CULTURE STAT 07/12/2024 1:05 PM NUCLEAR SUPERVISING OPERATOR THYROID FUNCTION CASCADE STAT 025 11:53 AM NUCLEAR SUPERVISING OPERATOR EGFR STAT 07/12/2024 11:53 AM NUCLEAR SUPERVISING OPERATOR DIFFERENTIAL AUTO STAT 07/12/2024 11:53 AM NUCLEAR SUPERVISING OPERATOR TROPONIN T HIGH-SENSITIVITY SERIES (BASELINE, 2HR, 4HR, 6HR) STAT 07/12/2024 11:53 AM NUCLEAR SUPERVISING OPERATOR CBC WITH AUTO DIFFERENTIAL STAT 07/12 11:53 AM NUCLEAR SUPERVISING OPERATOR COMPREHENSIVE METABOLIC PANEL STAT 11:53 AM NUCLEAR SUPERVISING OPERATOR INFLUENZA A/B, RSV, AND COVID-19 PCR Routine 07/12/2024 11:53 AM NUCLEAR SUPERVISING OPERATOR ECG 12-LEAD STAT 07/12/2024 11:48 AM NUCLEAR SUPERVISING OPERATOR CT FACIAL BONES WO CONTRAST ED 06/23 10:38 AM NUCLEAR SUPERVISING OPERATOR CT CERVICAL SPINE WO CONTRAST ED 10:38 AM NUCLEAR SUPERVISING OPERATOR CT HEAD WO CONTRAST ED 07/12/2024 10:38 AM NUCLEAR SUPERVISING OPERATOR XR SHOULDER RIGHT 2 OR MORE VIEWS ED 07/12/2024 10:08 AM NUCLEAR SUPERVISING OPERATOR XR SHOULDER LEFT 2 OR MORE VIEWS ED 07/12/2024 10:08 AM NUCLEAR SUPERVISING OPERATOR POCT GLUCOSE DEVICE Routine 07/12/2024 9:33 AM NUCLEAR SUPERVISING OPERATOR LIPID PANEL Routine 05/16/2024 10:14 AM NUCLEAR SUPERVISING OPERATOR Mixed hyperlipidemia COLONOSCOPY 03/01/2024 8:49 AM CDT [...] 70 - 199 mg/dL Glucose comment 1 RN/ Notified NILSA RODRIGES Blood 09/13/2024 9:47 AM CDT 09/13/2024 9:47 AM CDT us Jaya Grier MD LAB POCT ORDERABLES - DEVICE Fin al Result NILSA [address] Department [place] [address] * Surgical pathology (09/13/2024 9:28 AM CDT) Tissue specimen (specimen) (Esophageal biopsy) 09/13/2024 9:28 AM CDT Comment:Cold bx Narrative PATHOLOGY [facility] - 09/14/2024 1:55 PM CDT [facility] Department of Pathology [address] [place] [id number] Note to Patients: This report may contain [...] : 1950 (Age: 73) Gender: F Address: [address] [place] [address] Hospital #: [id number] Service: Gastro Location: Patient Type: [facility] OUTPATIENT Taken: 09/13/2024 Received: 09/13/2024 Accessioned: 09/13/2024 [...] cm. Entirely submitted. Labeled A1. Jar 0. cox branson/09/13/2024 13:20 CAMILA Johnson, PA (ASCP) Microscopic slide review and interpretation for this case was performed at [facility], Department of Surgical Pathology, [address] [facility] [place], [id number], [place] [address] CLIA # [id number] us Jaya Grier MD LAB PATHOLOGY ORDERABLES Final R esult PATHOLOGY [facility] * EGD (09/13/2024 9:17 AM CDT) Anatomical Region Laterality Modality Other Narrative Procedure Note Jaya Grier MD - 09/13/2024 9:17 AM CDT [facility] GI ENDOSCOPY Patient Name: Sixto Chakraborty Procedure Date: 09/13/2024 9:17 AM Date of : 1950 Admit Type: Outpatient Age: 73 Gender: Female Attending MD: Jaya Grier M.D. Room: [facility] ENDOSCOPY ROOM 03 Note Status: Finalized Procedure: [...] On: 09/13/2024 9:17 AM Recognized by the [employer] [employer] for promoting quality in endoscopy us Jaya Grier MD ENDOSCOPY PROCEDURES Final Resul t * (ABNORMAL) POC Blood Gas and Chemistries, Venous - (09/13/2024 8:54 AM CDT) pH,chris POC 7.34 7.32 - 7.43 pCO2, chris POC 51(H) 40 - 50 mmHg [facility] pO2,chris POC 22 mmHg [facility] Comment: Interpretive Data No reference range established. Current interpretive data was last revised 2020. HCO3, chris (Calc) POC 27 20 - 30 mmol/L [facility] Base excess, chris POC 1 mmol/L [facility] Comment: Interpretive Data No reference range established. Current interpretive data was last revised 2020. Hemoglobin, chris POC 10.9(L) 11.9 - 15.5 g/dL [facility] Hematocrit, chris POC 32.0(L) 35.6 - 45.5 % [facility] Sodium, chris POC 141 135 - 145 mmol/L [facility] Potassium, chris POC 4.4 3.3 - 4.9 mmol/L [facility] Comment: Interpretive Data This method is not able to assess for hemolysis, which may falsely increase potassium concentrations. If further testing is needed to evaluate this result, consider in-laboratory plasma potassium. Current Interpretive Data was last revised on 2022. Glucose, chris POC 170 70 - 199 mg/dL [facility] Ionized Calcium, chris POC 4.90 4.50 - 5.10 mg/dL [facility] Blood 09/13/2024 8:54 AM CDT 09/13/2024 8:54 AM CDT Jaya Grier MD LAB POCT ORDERABLES - DEVICE Antonio al Result [facility] [address] [facility] Department [place] [address] * AL INJECTION SINGLE/GANG SAW OPERATOR TRIGGER POINT 1/2 MUSCLES (09/08/2024 9:00 AM [...] well with no immediate complications Brook Muhammad DINING SERVICES MANAGER IN CLINIC/BEDSIDE ORDERABLE S Final Result * CT Head WO Contrast (09/07/2024) Anatomical Region Laterality Modality Head and Neck N/A Computed Tomogra phy Historical Provider IMG CT PROCEDURES Final R esult * POCT hemoglobin A1c (08/22/2024 8:55 AM NUCLEAR SUPERVISING OPERATOR) Hemoglobin A1C, POC 7.7 4.0 - 5.6 % Blood 08/22/2024 8:55 AM NUCLEAR SUPERVISING OPERATOR Smith Gibsb MD POINT OF CARE TEST ORDERABLE S Final Result * Respiratory pathogen panel Nasopharyngeal (07/31/2024 1:02 PM NUCLEAR SUPERVISING OPERATOR) Influenza A RNA Not Detected Not Detected [...] Parainfluenza 4 RNA Not Detected Not Detected [facility] B. pertussis DNA Not Detected Not Detected [facility]ER B. parapertussis DNA Not Detected Not Detected [facility] C. pneumoniae DNA Not Detected Not Detected [facility] M. pneumoniae DNA Not Detected Not Detected [facility] Comment: Interpretive Data The [employer] FilmArray Respiratory Panel (RP2.1) assay is a [...] assay has FDA clearance for testing of DINING SERVICES MANAGER swabs. The performance characteristics of this assay have been determined by [facility]. Current interpretive data was last revised on 2021. Nasopharyngeal 07/31/2024 1: 02 PM NUCLEAR SUPERVISING OPERATOR 07/31/2024 1:05 PM NUCLEAR SUPERVISING OPERATOR Narrative NILSA - 07/31/2024 2:05 PM NUCLEAR SUPERVISING OPERATOR Is the Patient experiencing symptoms consistent with COVID?->Yes Surveillance testing for transplant patient?->No Lucy Lucero MD LAB MICROBIOLOGY - [facility] ORDERABLES Final Result [facility] [address] [address] Department [place] [address] * Diabetic Eye Exam (07/27/2024 12:37 PM NUCLEAR SUPERVISING OPERATOR) Historical Provider HEALTH MAINTENANCE Final Result * HM DIABETES EYE EXAM (07/22/2024) Historical Provider HEALTH MAINTENANCE Final Result * XR Chest 1 View (07/15/2024 1:11 PM NUCLEAR SUPERVISING OPERATOR) Anatomical Region Laterality Modality Body, Chest N/A Computed Radiogr aphy 07/15/2024 1:35 PM NUCLEAR SUPERVISING OPERATOR Narrative 07/15/2024 1:36 PM NUCLEAR SUPERVISING OPERATOR EXAM DESCRIPTION: XR CHEST 1 VIEW REASON [...] Yosef Lindo D.O. PS T: Report ID: [id number] Reading Location: [id number] Procedure Note Yosef Lindo, DO - 07/15/2024 [...] Yosef Lindo D.O. PS T: Report ID: [id number] Reading Location: [id number] us Edgardo Kauffman MD IMG XR PROCEDURES Final Re sult * RPL DRE CVC W/O PUMP [id number] (07/15/2024 12:40 PM NUCLEAR SUPERVISING OPERATOR) Anatomical Region Laterality Modality X-Ray Angiograph y Narrative 07/15/2024 12:45 PM NUCLEAR SUPERVISING OPERATOR Please see OpNote for result. us Edgardo Kauffman MD CV CARDIAC CATH PROCEDURES Final Result * XR Chest 1 View (07/14/2024 1:16 PM NUCLEAR SUPERVISING OPERATOR) Anatomical Region Laterality Modality Body, Chest N/A Computed Radiogr aphy 07/14/2024 1:20 PM NUCLEAR SUPERVISING OPERATOR Narrative 07/14/2024 1:22 PM NUCLEAR SUPERVISING OPERATOR EXAM DESCRIPTION: XR CHEST 1 VIEW REASON [...] Salvador Villa M.D. KR T: Report ID: [id number] Reading Location: [id number] Procedure Note Salvador Villa MD - 07/14/2024 [...] Salvador Villa M.D. KR T: Report ID: [id number] Reading Location: [place] [address] Edgardo Kauffman MD IMG XR PROCEDURES Final Re sult * (ABNORMAL) eGFR (07/14/2024 12:34 PM NUCLEAR SUPERVISING OPERATOR) eGFR 7(L) >=60 mL/min/1. 73 m2 Comment: [...] reviewed 2021. Blood 07/14/2024 12:3 4 PM NUCLEAR SUPERVISING OPERATOR 07/14/2024 12:41 PM NUCLEAR SUPERVISING OPERATOR Edgardo Kauffman MD LAB BLOOD ORDERABLES Final Result [facility] ENRIQUETTO [address] [facility] Department [place] [address] * (ABNORMAL) Differential, auto (07/14/2024 12:34 PM NUCLEAR SUPERVISING OPERATOR) Neutrophil abs 7.8(H) 1.5 - 6.5 K/cumm Imm gran abs 0.0 0.0 - 0.1 K/cumm [facility] Lymphocyte abs 1.5 0.8 - 3.3 K/cumm [facility] Monocyte abs 0.5 0.2 - 0.8 K/cumm [facility] Eosinophil abs 0.2 0.0 - 0.5 K/cumm [facility] Basophil abs 0.0 0.0 - 0.1 K/cumm [facility] Neutrophil pct 78.1 % [facility] Comment: Interpretive Data Percent cell count reference ranges are not reported, since discordance with absolute values may lead to misinterpretation of CBC data. Current Interpretive Data was last revised on 2017. Imm gran pct 0.4 % [facility] Comment: Interpretive Data Percent cell count reference ranges are not reported, since discordance with absolute values may lead to misinterpretation of CBC data. Current Interpretive Data was last revised on 2017. Lymphocyte pct 14.8 % [facility] Comment: Interpretive Data Percent cell count reference ranges are not reported, since discordance with absolute values may lead to misinterpretation of CBC data. Current Interpretive Data was last revised on 2017. Monocyte pct 4.7 % [facility] Comment: Interpretive Data Percent cell count reference ranges are not reported, since discordance with absolute values may lead to misinterpretation of CBC data. Current Interpretive Data was last revised on 2017. Eosinophil pct 1.6 % [facility] Comment: Interpretive Data Percent cell count reference ranges are not reported, since discordance with absolute values may lead to misinterpretation of CBC data. Current Interpretive Data was last revised on 2017. Basophil pct 0.4 % [facility] Comment: Interpretive Data Percent cell count reference ranges are not reported, since discordance with absolute values may lead to misinterpretation of CBC data. Current Interpretive Data was last revised on 2017. Blood 07/14/2024 12:3 4 PM NUCLEAR SUPERVISING OPERATOR 07/14/2024 12:41 PM NUCLEAR SUPERVISING OPERATOR Edgardo Kauffman MD LAB BLOOD ORDERABLES Final Result Performing Organization Address [facility] de Phone Number NILSA [address] [address] * (ABNORMAL) CBC with auto differential (07/14/2024 12:34 PM NUCLEAR SUPERVISING OPERATOR) [facility] WBC 9.9 3.8 - 9.9 K/cumm Hgb 11.6(L) 11.9 - 15.5 g/dL [facility] Hct 35.3(L) 35.6 - 45.5 % [facility] Plt 241 150 - 400 K/cumm [facility] MPV 11.0 9.1 - 12.3 fL [facility] RBC 3.63(L) 3.90 - 5.20 M/cumm [facility] MCV 97.2(H) 81.3 - 96.4 fL [facility] MCH 32.0 27.1 - 33.3 pg [facility] MCHC 32.9 32.3 - 35.7 g/dL [facility] RDW CV 15.4(H) 11.1 - 14.9 % [facility] RDW SD 54.8(H) 35.7 - 48.1 fL [facility] NRBC abs 0.00 0.00 - 0.01 K/cumm [facility] Blood 07/14/2024 12:3 4 PM NUCLEAR SUPERVISING OPERATOR 07/14/2024 12:41 PM NUCLEAR SUPERVISING OPERATOR Edgardo Kauffman MD LAB BLOOD ORDERABLES Final Result Performing Organization Address [facility] Co de Phone Number NILSA [address] [place] [address] * (ABNORMAL) Basic metabolic panel (07/14/2024 12:34 PM NUCLEAR SUPERVISING OPERATOR) [facility] Sodium 138 135 - 145 mmol/L Potassium, pl 4.1 3.3 - 4.9 mmol/L [facility] Comment:Hemolyzed; Potassium value may be falsely elevated by as much as 1.0 mmol/L. Suggest redraw and reanalysis. Chloride 100 97 - 110 mmol/L [facility] CO2 25 22 - 32 mmol/L [facility] Anion gap 13 2 - 15 mmol/L [facility] BUN 51(H) 6 - 25 mg/dL [facility] Creatinine 6.22(H) 0.60 - 1.10 mg/dL [facility] Glucose 155 70 - 199 mg/dL [facility] Comment: Interpretive Data Fasting glucose [...] Calcium 9.4 8.5 - 10.3 mg/dL [facility] Blood 07/14/2024 12:3 4 PM NUCLEAR SUPERVISING OPERATOR 07/14/2024 12:41 PM NUCLEAR SUPERVISING OPERATOR us Edgardo Kauffman MD LAB BLOOD ORDERABLES Final Result NILSA [address] Department [place] [address] * Surgical pathology (07/13/2024 11:10 AM NUCLEAR SUPERVISING OPERATOR) Tissue specimen (specimen) (Duodenum, Biopsy) 07/13/2024 11:10 AM NUCLEAR SUPERVISING OPERATOR Tissue specimen (specimen) (Gastric/Stomach biopsy) 07/13/2024 11:11 AM NUCLEAR SUPERVISING OPERATOR Tissue specimen (specimen) (Gastric/Stomach biopsy) 07/13/2024 11:11 AM NUCLEAR SUPERVISING OPERATOR Tissue specimen (specimen) (Esophageal biopsy) 07/13/2024 11:13 AM NUCLEAR SUPERVISING OPERATOR Narrative PATHOLOGY [facility] - 07/14/2024 1:59 PM NUCLEAR SUPERVISING OPERATOR [facility] Department of Pathology [address] [place] [address] Note to Patients: This report may contain [...] : 1950 (Age: 73) Gender: F Address: [address] [place] [address] [facility] #: [id number] Service: Gastro Location: Patient Type: [facility] OUTPATIENT Taken: 07/13/2024 Received: 07/13/2024 Accessioned: 07/13/2024 [...] Entirely submitted. Labeled D1. Jar 0. cox branson/07/13/2024 13:31 CAMILA Johnson, PA (ASCP) Microscopic slide review and interpretation for this case was performed at [facility], Department of Surgical Pathology, [address] [facility], [id number], [place] [address] CLIA # [id number] us Jaya Grier MD LAB PATHOLOGY ORDERABLES Final R esult PATHOLOGY [facility] * EGD (07/13/2024 10:59 AM NUCLEAR SUPERVISING OPERATOR) Anatomical Region Laterality Modality Other Narrative Procedure Note Jaya Grier MD - 07/13/2024 10:59 AM CST [facility] GI ENDOSCOPY Patient Name: Sixto Chakraborty Procedure Date: 07/13/2024 10:59 AM Date of : 1950 Admit Type: Outpatient Age: 73 Gender: Female Attending MD: Jaya Grier M.D. Room: [facility] ENDOSCOPY ROOM 06 Note Status: Finalized [...] On: 07/13/2024 10:59 AM Recognized by the [employer] [employer] for promoting quality in endoscopy Jaya Grier MD ENDOSCOPY PROCEDURES Final Resul t * (ABNORMAL) POC Blood Gas and Chemistries, Venous - (07/13/2024 10:12 AM NUCLEAR SUPERVISING OPERATOR) pH,chris POC 7.40 7.32 - 7.43 pCO2, chris POC 49 40 - 50 mmHg [facility] pO2,chris POC 36 mmHg [facility] Comment: Interpretive Data No reference range established. Current interpretive data was last revised 2020. HCO3, chris (Calc) POC 30 20 - 30 mmol/L [facility] Base excess, chris POC 4 mmol/L [facility] Comment: Interpretive Data No reference range established. Current interpretive data was last revised 2020. Hemoglobin, chris POC 13.9 11.9 - 15.5 g/dL [facility] Hematocrit, chris POC 41.0 35.6 - 45.5 % [facility] Sodium, chris POC 134(L) 135 - 145 mmol/L [facility] Potassium, chris POC 4.6 3.3 - 4.9 mmol/L [facility] Comment: Interpretive Data This method is [...] mg/dL NILSA Blood 07/13/2024 10:1 2 AM NUCLEAR SUPERVISING OPERATOR 07/13/2024 10:12 AM NUCLEAR SUPERVISING OPERATOR Jaya Grier MD LAB POCT ORDERABLES - DEVICE Fin al Result Performing Organization Address [facility]/ZIP Co de Phone Number CARLOS ENRIQUE[address] [place] [address] * (ABNORMAL) Troponin T high-sensitivity 2-hour (07/12/2024 1:59 PM NUCLEAR SUPERVISING OPERATOR) Trop T hs 63(H) <=14 ng/L Comment: Interpretive Data For further hscTnT resources including the diagnostic algorithm and an aid in interpretation, copy and paste this link: https://nrl.testcatalog.org/show/hsTrop Current Interpretive Data last revised 2020. Testing performed by: [address] [address] Trop T hs delta -5 ng/L NILSA Comment:Testing performed by : [address] [address] Trop T hs interp Equivocal NILSA Comment:Testing performed by : [address] [address] Blood 07/12/2024 1:59 PM NUCLEAR SUPERVISING OPERATOR 07/12/2024 2:20 PM NUCLEAR SUPERVISING OPERATOR Donna CUEVA LAB BLOOD ORDERABLES Final Re sult Performing Organization Address City/[facility]/ZIP Co de Phone Number [facility] [address] [place] [address] [place] [address] * (ABNORMAL) Urinalysis reflex to microscopic and culture Urine (07/12/2024 1:05 PM NUCLEAR SUPERVISING OPERATOR) Color, ur Mikayla Yellow Comment:Testing performed by : [address] [address] Clarity, ur Turbid(A) Clear NILSA Comment:Testing performed by : [address] [address] Specific gravity, ur 1.006 1.003 - 1.030 NILSA Comment:Testing performed by : [address] [address] pH, urine 6.0 NILSA Comment: Interpretive Data U rine pH is affected by diet, medications, systemic acid-base disturbances, and renal tubular function. pH may affect urinary stone formation. For example, urine pH below 6.0 may help reduce the tendency for calcium phosphate stones and pH greater than 6.0 may reduce the tendency for uric acid stone formation. Source: [facility] [employer] Current Interpretive Data was last revised on 2017 Testing performed by: [address] [address] Protein, ur ql 2+(A) Negative NILSA Comment:Testing performed by : [address] [address] Glucose, ur ql 1+(A) Negative NILSA Comment:Testing performed by : [address] [address] Ketones, ur Negative Negative NILSA Comment:Testing performed by : [address] [address] Bilirubin, ur Negative Negative NILSA Comment:Testing performed by : [address] [address] Blood, ur 2+(A) Negative NILSA Comment:Testing performed by : [address] [address] Urobilinogen, ur <2.0 <2.0 mg/dL NILSA Comment:Testing performed by : [address] [address] Nitrite, ur Negative Negative NILSA Comment:Testing performed by : [address] [address] Leukocyte esterase, ur 4+(A) Negative NILSA RODRIGES Comment:Testing performed by : [address] [address] UA reflex comment Reflex to microscopic UA will be performed. NILSA RODRIGES Comment:Testing performed by : [address] [address] Urine 07/12/2024 1:05 PM NUCLEAR SUPERVISING OPERATOR 07/12/2024 1:09 PM NUCLEAR SUPERVISING OPERATOR Donna CUEVA LAB MICROBIOLOGY - GENERAL OR DERABLES Final Result NILSA RODRIGES [address] [facility] Department of Laboratories [place], [place] [id number] * Drugs of Abuse Screen, Urine without Confirmation (07/12/2024 1:05 PM NUCLEAR SUPERVISING OPERATOR) Amphetamine, ur Not Detected CutOff 500ng/mL Comment: Interpretive Data - Amphetamines: Samples containing greater than 500 ng/mL d-methamphetamine or other cross-reacting amphetamine compounds are reported as positive. Amphetamine immunoassays are subject to significant false positive rates due to cross-reactivity of non-amphetamine drugs. Confirmatory testing required for definitive results. Current Interpretive Data was last reviewed 2023. Testing performed by: [address] [address] Barbiturates, ur Not Detected CutOff 200ng/mL NILSA RODRIGES Comment: Interpretive Data - Barbiturates: Samples containing greater than 200 ng/mL secobarbital or other cross-reacting barbiturate compounds are reported as positive. False positive and false negative results are possible. Confirmatory testing required for definitive results. Current Interpretive Data was last reviewed 2023. Testing performed by: [address] [address] Benzodiazepines, ur Not Detected CutOff 100ng/mL NILSA RODRIGES Comment: Interpretive Data - Benzodiazepines: Samples containing greater than 100 ng/mL nordiazepam or other cross-reacting compounds are reported as positive. False positive and false negative results are possible. Confirmatory testing required for definitive results. Current Interpretive Data was last reviewed 2023. Testing performed by: [address], [place]., [address] Cannabinoids, ur Not Detected CutOff 50 ng/mL [facility] Comment: Interpretive Data - Cannabinoids: Samples containing greater than 50 ng/mL delta-9 THC -COOH or other cross- reacting compounds are reported as positive. False positive and false negative results are possible. Confirmatory testing required for definitive results. Current Interpretive Data was last reviewed 2023. Testing performed by: [address], [place]., [address] Cocaine, ur Not Detected CutOff 150ng/mL [facility] Comment: Interpretive Data - Cocaine: Samples containing greater than 150 ng/mL benzoylecgonine or other cross- reacting compounds are reported as positive. False positive and false negative results are possible. Confirmatory testing required for definitive results. Current Interpretive Data was last reviewed 2023. Testing performed by: [address], [place]., [address] Fentanyl, Ur Not Detected Cutoff 1 ng/mL [facility] Comment: Interpretive Data - Fentanyl: Samples containing greater than 1 ng/mL fentanyl or other cross-reacting fentanyl compounds are reported as positive. False positive and false negative results are possible. Confirmatory testing required for definitive results. Current Interpretive Data was last reviewed 2023. Testing performed by: [address], [place]., [address] Methadone, ur Not Detected CutOff 300ng/mL [facility] Comment: Interpretive Data - Methadone: Samples containing greater than 300 ng/mL d,l-methadone or other cross-reacting compounds are reported as positive. False positive and false negative results are possible. Confirmatory testing required for definitive results. Current Interpretive Data was last reviewed 2023. Testing performed by: [address], [place]., [address] Opiates, ur Not Detected CutOff 300ng/mL [facility] Comment: Interpretive Data - Opiates: Samples containing greater than 300 ng/mL morphine or other cross-reacting compounds are reported as positive. False positive and false negative results are possible. Confirmatory testing required for definitive results. Current Interpretive Data was last reviewed 2023. Testing performed by: [address], [place]., [address] Oxycodone, ur Not Detected CutOff 100ng/mL NILSA Comment: Interpretive Data - Oxycodone: Samples containing greater than 100 ng/mL oxycodone or other cross-reacting compounds are reported as positive. False positive and false negative results are possible. Confirmatory testing required for definitive results. Current Interpretive Data was last reviewed 2023. Testing performed by: [address] [address] Phencyclidine, ur Not Detected CutOff 25 ng/mL NILSA Comment: Interpretive Data - Phencyclidine: Samples containing greater than 25 ng/mL phencyclidine or other cross-reacting compounds are reported as positive. False positive and false negative results are possible. Confirmatory testing required for definitive results. Current Interpretive Data was last reviewed 2023. Testing performed by: [address] [address] Urine Creatinine 74 mg/dL NILSA Comment: Interpretive Data Urine Creatinine: < 10 mg/dL is extremely dilute = or > 10 but < 20 mg/dL is dilute = or > 20 mg/dL is normal Current Interpretive Data was last revised on 2017. Testing performed by: [address] [address] Urine 07/12/2024 1:05 PM NUCLEAR SUPERVISING OPERATOR 07/12/2024 1:09 PM NUCLEAR SUPERVISING OPERATOR Narrative [facility] - 07/12/2024 1:31 PM NUCLEAR SUPERVISING OPERATOR Drug of Abuse screening is performed by immunoassay for medical purposes only. This is not to be used for Pain Management purposes. us Donna CUEVA LAB URINE ORDERABLES Final Re sult [facility] CAMPUSELLEN [address] [facility] Department [place] [address] * (ABNORMAL) Urinalysis, microscopic only (07/12/2024 1:05 PM NUCLEAR SUPERVISING OPERATOR) WBC, ur >50(A) 0 - 5 /HPF Comment:Testing performed by : [address] [address] RBC, ur 11-20(A) 0 - 2 /HPF NILSA Comment:Testing performed by : [address] [address] Bacteria, ur 4+(A) NILSA Comment:Testing performed by : [facility], [address] [place] [address]., [address] Culture Reflex Comment Reflex to urine culture will be performed. NILSA Comment:Testing performed by : [address] [address] Urine 07/12/2024 1:05 PM NUCLEAR SUPERVISING OPERATOR 07/12/2024 1:09 PM NUCLEAR SUPERVISING OPERATOR Donna CUEVA LAB URINE ORDERABLES Final Re sult NILSA RODRIGES [address] [facility] Department [place] [address] * (ABNORMAL) Urine culture Urine (07/12/2024 1:05 PM NUCLEAR SUPERVISING OPERATOR) Report Final Report: Greater than or equal to 100,000 colonies/mL of Escherichia coli (.) Comment:Testing performed by : [facility], [address] [place] [address] Organism ESCHERICHIA COLI NILSA Urine 07/12/2024 1:05 PM NUCLEAR SUPERVISING OPERATOR 07/12/2024 3:03 PM NUCLEAR SUPERVISING OPERATOR Narrative NILSA - 07/14/2024 2:20 PM NUCLEAR SUPERVISING OPERATOR Urine culture reflexed based upon urinalysis results. Testing performed by [facility] ([phone]) Organism Antibiotic Method Susceptibility Escherichia coli Ampicillin [...] INTERPRETATION Susceptible Escherichia coli Cefdinir INTERPRETATION Susceptible us Donna CUEVA LAB MICROBIOLOGY - GENERAL OR DERABLES Final Result NILSA [address] [facility] Department [place] [address] * (ABNORMAL) Troponin T high-sensitivity series (baseline, 2hr, 4hr, 6hr) (07/12/2024 11:53 AM NUCLEAR SUPERVISING OPERATOR) Pathologist [facility] Trop T hs 68(H) <=14 ng/L Comment: REDRAW: HEMOLYZED SPECIMEN Interpretive Data For further hscTnT resources including the diagnostic algorithm and an aid in interpretation, copy and paste this link: https://nrl.testcatalog.org/show/hsTrop Current Interpretive Data last revised 2020. Testing performed by: [address] [address] Blood 07/12/2024 11:5 3 AM NUCLEAR SUPERVISING OPERATOR 07/12/2024 11:58 AM NUCLEAR SUPERVISING OPERATOR us Donna CUEVA LAB BLOOD ORDERABLES Final Re sult NILSA [address] [facility] Department [place] [address] * Influenza A/B, RSV, and COVID-19 PCR Nasopharyngeal (07/12/2024 11:53 AM NUCLEAR SUPERVISING OPERATOR) [facility] COVID-19 RNA Negative Negative Comment:Testing performed by : [address] [address] Influenza A RNA Negative Negative NILSA Comment:Testing performed by : [address] [address] Influenza B RNA Negative Negative NILSA Comment:Testing performed by : [address] [address] RSV RNA Negative Negative NILSA Comment: Interpretive data: Testing performed by [facility]. This test is performed using the [employer] Xpress CoV-2/Flu/RSV plus assay. This is a multiplex, real-time reverse transcriptase PCR assay intended for the qualitative detection of nucleic acid from SARS-CoV-2, influenza A, influenza B, and respiratory syncytial virus. This assay has been cleared by the [place] Food and Drug administration. The performance characteristics have been verified by the [facility]. Results must be considered in the clinical context, and a negative result does not rule out infection. Interpretive Data last revised 2023 Testing performed by: [facility], [address] [place] [address]., [address] Nasopharyngeal 07/12/2024 11 :53 AM NUCLEAR SUPERVISING OPERATOR 07/12/2024 11:58 AM NUCLEAR SUPERVISING OPERATOR Narrative NILSA - 07/12/2024 12:38 PM NUCLEAR SUPERVISING OPERATOR Is the Patient experiencing symptoms consistent with COVID?->Unknown Donna CUEVA LAB MICROBIOLOGY - GENERAL OR DERABLES Final Result NILSA [address] [facility] Department [place] [address] * (ABNORMAL) eGFR (07/12/2024 11:53 AM NUCLEAR SUPERVISING OPERATOR) eGFR 10(L) >=60 mL/min/1. 73 m2 Comment: [...] was last reviewed 2021. Testing performed by: [facility], [address] [place] [address]., [address] Blood 07/12/2024 11:5 3 AM NUCLEAR SUPERVISING OPERATOR 07/12/2024 11:58 AM NUCLEAR SUPERVISING OPERATOR us Donna CUEVA LAB BLOOD ORDERABLES Final Re sult NILSA [address] [facility] Department [place] [address] * (ABNORMAL) Differential, auto (07/12/2024 11:53 AM NUCLEAR SUPERVISING OPERATOR) Neutrophil abs 9.2(H) 1.5 - 6.5 K/cumm Comment:Testing performed by : [address] [address] Imm gran abs 0.1 0.0 - 0.1 K/cumm NILSA Comment:Testing performed by : [address] [address] Lymphocyte abs 1.5 0.8 - 3.3 K/cumm NILSA Comment:Testing performed by : [address] [address] Monocyte abs 0.5 0.2 - 0.8 K/cumm NILSA Comment:Testing performed by : [address] [address] Eosinophil abs 0.1 0.0 - 0.5 K/cumm NILSA Comment:Testing performed by : [address] [address] Basophil abs 0.0 0.0 - 0.1 K/cumm NILSA Comment:Testing performed by : [address] [address] Neutrophil pct 81.0 % NILSA Comment: Interpretive Data Percent cell count reference ranges are not reported, since discordance with absolute values may lead to misinterpretation of CBC data. Current Interpretive Data was last revised on 2017. Testing performed by: [address] [address] Imm gran pct 0.4 % NILSA Comment: Interpretive Data Percent cell count reference ranges are not reported, since discordance with absolute values may lead to misinterpretation of CBC data. Current Interpretive Data was last revised on 2017. Testing performed by: [address] [address] Lymphocyte pct 13.4 % [facility] Comment: Interpretive Data Percent cell count reference ranges are not reported, since discordance with absolute values may lead to misinterpretation of CBC data. Current Interpretive Data was last revised on 2017. Testing performed by: [address] [address] Monocyte pct 4.2 % [facility] Comment: Interpretive Data Percent cell count reference ranges are not reported, since discordance with absolute values may lead to misinterpretation of CBC data. Current Interpretive Data was last revised on 2017. Testing performed by: [address] [address] Eosinophil pct 0.6 % [facility] Comment: Interpretive Data Percent cell count reference ranges are not reported, since discordance with absolute values may lead to misinterpretation of CBC data. Current Interpretive Data was last revised on 2017. Testing performed by: [address] [address] Basophil pct 0.4 % [facility] Comment: Interpretive Data Percent cell count reference ranges are not reported, since discordance with absolute values may lead to misinterpretation of CBC data. Current Interpretive Data was last revised on 2017. Testing performed by: [address] [address] Blood 07/12/2024 11:5 3 AM NUCLEAR SUPERVISING OPERATOR 07/12/2024 11:58 AM NUCLEAR SUPERVISING OPERATOR us Donna CUEVA LAB BLOOD ORDERABLES Final Re sult NILSA RODRIGES [address] [facility] Department [place] [address] * Thyroid Function [place] (07/12/2024 11:53 AM NUCLEAR SUPERVISING OPERATOR) TSH 1.22 0.30 - 4.20 mcIUnit/mL Comment:Testing performed by : [address] [address] Blood 07/12/2024 11:5 3 AM NUCLEAR SUPERVISING OPERATOR 07/12/2024 11:58 AM NUCLEAR SUPERVISING OPERATOR us Donna CUEVA LAB BLOOD ORDERABLES Final Re sult [facility] [address] [facility] Department [place] [address] * (ABNORMAL) CBC with auto differential (07/12/2024 11:53 AM NUCLEAR SUPERVISING OPERATOR) WBC 11.3(H) 3.8 - 9.9 K/cumm Comment:Testing performed by : [address] [address] Hgb 12.3 11.9 - 15.5 g/dL NILSA Comment:Testing performed by : [address] [address] Hct 37.2 35.6 - 45.5 % NILSA Comment:Testing performed by : [address] [address] Plt 230 150 - 400 K/cumm NILSA Comment:Testing performed by : [address] [address] MPV 10.7 9.1 - 12.3 fL NILSA Comment:Testing performed by : [address] [address] RBC 3.85(L) 3.90 - 5.20 M/cumm NILSA Comment:Testing performed by : [address] [address] MCV 96.6(H) 81.3 - 96.4 fL NILSA Comment:Testing performed by : [address] [address] MCH 31.9 27.1 - 33.3 pg NILSA RODRIGES Comment:Testing performed by : [address] [address] MCHC 33.1 32.3 - 35.7 g/dL NILSA RODRIGES Comment:Testing performed by : [address] [address] RDW CV 15.7(H) 11.1 - 14.9 % NILSA RODRIGES Comment:Testing performed by : [address] [address] RDW SD 55.5(H) 35.7 - 48.1 fL NILSA RODRIGES Comment:Testing performed by : [address] [address] NRBC abs 0.00 0.00 - 0.01 K/cumm NILSA RODRIGES Comment:Testing performed by : [address] [address] Blood 07/12/2024 11:5 3 AM NUCLEAR SUPERVISING OPERATOR 07/12/2024 11:58 AM NUCLEAR SUPERVISING OPERATOR us Donna CUEVA LAB BLOOD ORDERABLES Final Re sult NILSA [address] Department [place] [address] * (ABNORMAL) Comprehensive metabolic panel (07/12/2024 11:53 AM NUCLEAR SUPERVISING OPERATOR) Sodium 134(L) 135 - 145 mmol/L Comment:Testing performed by : [address] [address] Potassium, pl 4.6 3.3 - 4.9 mmol/L NILSA RODRIGES Comment: HEMOLYZED: Hemolysis interferes with the above test. Testing performed by: [address] [address] Chloride 93(L) 97 - 110 mmol/L NILSA Comment:Testing performed by : [address] [address] CO2 28 22 - 32 mmol/L NILSA RODRIGES Comment:Testing performed by : [address] [address] Anion gap 13 2 - 15 mmol/L NILSA RODRIGES Comment:Testing performed by : [address] [address] BUN 33(H) 6 - 25 mg/dL [facility] Comment:Testing performed by : [address] [address] Creatinine 4.60(H) 0.60 - 1.10 mg/dL [facility] Comment:Testing performed by : [address] [address] Glucose 177 70 - 199 mg/dL [facility] Comment: Interpretive Data Fasting glucose [...] last revised 2022. Testing performed by: [address] [address] Calcium 9.5 8.5 - 10.3 mg/dL [facility] Comment:Testing performed by : [address] [address] Bilirubin, total 0.4 0.1 - 1.2 mg/dL [facility] Comment:Testing performed by : [address] [address] Protein, pl 8.2 6.5 - 8.5 g/dL [facility] Comment:Testing performed by : [address] [address] Albumin 3.9 3.5 - 5.0 g/dL [facility] Comment:Testing performed by : [address] [address] Alk phos 95 40 - 130 Units/L [facility] Comment:Testing performed by : [address] [address] ALT 24 7 - 45 Units/L [facility] Comment: HEMOLYZED: Hemolysis interferes with the above test. Testing performed by: [address] [address] AST 26 10 - 45 Units/L NILSA Comment: HEMOLYZED: Hemolysis interferes with the above test. Testing performed by: [facility], [address] [place] [address], [place]., [address] Blood 07/12/2024 11:5 3 AM NUCLEAR SUPERVISING OPERATOR 07/12/2024 11:58 AM NUCLEAR SUPERVISING OPERATOR Donna CUEVA LAB BLOOD ORDERABLES Final Re sult NILSA [address] [facility] Department of Laboratories [place], [place] [id number] * ECG 12 lead (07/12/2024 11:48 AM NUCLEAR SUPERVISING OPERATOR) Ventricular Rate EKG/Min 77 BPM [facility] Atrial Rate 77 BPM [facility] AL-Interval (MSEC) 154 ms [facility] QRS-Interval (MSEC) 66 ms [facility] QT-Interval (MSEC) 412 ms [facility] QTc 466 ms [facility] P Jesse 72 degrees [facility] R Jesse 6 degrees [facility] T Jesse 62 degrees [facility] Diagnosis Normal sinus rhythm Normal ECG When compared with ECG of 21-APR-2024 10:35, No significant change was found Confirmed by DIAMOND GUTIERREZ M.D. ([id number]) on 07/13/2024 9:26:23 PM [facility] 07/12/2024 11:4 8 AM NUCLEAR SUPERVISING OPERATOR 07/13/2024 9:26 PM NUCLEAR SUPERVISING OPERATOR Donna CUEVA ECG ORDERABLES Final Result Performing Organization Address [facility]/ZIP Co de Phone Number [facility] [employer] [facility] * CT Cervical Spine WO Contrast (07/12/2024 10:38 AM NUCLEAR SUPERVISING OPERATOR) Anatomical Region Laterality Modality Spine N/A Computed Tomogra phy 07/12/2024 11:0 8 AM NUCLEAR SUPERVISING OPERATOR Narrative 07/12/2024 11:13 AM NUCLEAR SUPERVISING OPERATOR EXAM DESCRIPTION: CT CERVICAL SPINE WO CONTRAST [...] Wally Hernandez M.D. RB: AMADA Report ID: [id number] Reading Location: [id number] Procedure Note Wally Hernandez MD - 07/12/2024 [...] Wally Hernandez M.D. RB: AMADA Report ID: [id number] Reading Location: [place] [address] PROCEDURES Final Resul t * CT Facial Bones WO Contrast (07/12/2024 10:38 AM NUCLEAR SUPERVISING OPERATOR) Anatomical Region Laterality Modality Head and Neck N/A Computed Tomogra phy 07/12/2024 11:0 3 AM NUCLEAR SUPERVISING OPERATOR Narrative 07/12/2024 11:08 AM NUCLEAR SUPERVISING OPERATOR EXAM DESCRIPTION: CT FACIAL BONES WO CONTRAST [...] Wally Hernandez M.D. RB: AMADA Report ID: [id number] Reading Location: [place] [address] Procedure Note Wally Hernandez MD - 07/12/2024 [...] Wally Hernandez M.D. RB: AMADA Report ID: [id number] Reading Location: [place] [address] PROCEDURES Final Resul t * CT Head WO Contrast (07/12/2024 10:38 AM NUCLEAR SUPERVISING OPERATOR) Anatomical Region Laterality Modality Head and Neck N/A Computed Tomogra phy 07/12/2024 10:5 9 AM NUCLEAR SUPERVISING OPERATOR Narrative 07/12/2024 11:03 AM NUCLEAR SUPERVISING OPERATOR EXAM DESCRIPTION: CT HEAD WO CONTRAST REASON [...] Wally Hernandez M.D. RB: AMADA Report ID: [id number] Reading Location: [id number] Procedure Note Wally Hernanedz MD - 07/12/2024 EXAM DESCRIPTION: CT HEAD [...] Wally Hernandez M.D. RB: AMADA Report ID: [id number] Reading Location: [id number] Donna CUEVA IMG CT PROCEDURES Final Resul t * XR Shoulder Right 2 or More Views (07/12/2024 10:08 AM NUCLEAR SUPERVISING OPERATOR) Anatomical Region Laterality Modality Upper Extremities, Shoulder Right Comp uted Radiography 07/12/2024 10:1 4 AM NUCLEAR SUPERVISING OPERATOR Narrative 07/12/2024 10:15 AM NUCLEAR SUPERVISING OPERATOR EXAM DESCRIPTION: XR SHOULDER RIGHT 2 OR [...] Wally Hernandez M.D. RB: AMADA Report ID: [id number] Reading Location: [id number] Procedure Note Wally Hernandez MD - 07/12/2024 [...] Wally Hernandez M.D. RB: AMADA Report ID: [id number] Reading Location: [id number] Julio Landeros DO IMG XR PROCEDURES Final Result * XR Shoulder Left 2 or More Views (07/12/2024 10:08 AM NUCLEAR SUPERVISING OPERATOR) Anatomical Region Laterality Modality Upper Extremities, Shoulder Left Comp uted Radiography 07/12/2024 10:1 3 AM NUCLEAR SUPERVISING OPERATOR Narrative 07/12/2024 10:14 AM NUCLEAR SUPERVISING OPERATOR EXAM DESCRIPTION: XR SHOULDER LEFT 2 OR [...] Wally Hernandez M.D. RB: AMADA Report ID: [id number] Reading Location: [id number] Procedure Note Wally Hernandez MD - 07/12/2024 [...] Wally Hernandez M.D. RB: AMADA Report ID: [id number] Reading Location: [id number] Julio Landeros DO IMG XR PROCEDURES Final Result * POCT glucose (07/12/2024 9:33 AM NUCLEAR SUPERVISING OPERATOR) Glucose, POC 164 70 - 199 mg/dL Comment:Testing performed by : [address] [address] Glucose comment 1 Use This Result NILSA RODRIGES Comment:Testing performed by : [facility], [address] [place] [address]., [address] Blood 07/12/2024 9:33 AM NUCLEAR SUPERVISING OPERATOR 07/12/2024 9:33 AM NUCLEAR SUPERVISING OPERATOR Notinfile Unknown LAB POCT ORDERABLES - DEVICE F inal Result NILSA RODRIGES [address] [facility] Department [place] [address] * Lipid panel (05/16/2024 10:14 AM NUCLEAR SUPERVISING OPERATOR) Cholesterol 160 30 - 199 mg/dL Comment: [...] 2004;110:227 3. Sanket Hamlin al. SAVITA Cardiol. 2019October 20;5(5):540-548. doi: [email or web address] Current Interpretive Data was last revised on 2024. Non-HDL Cholesterol 111 mg/dL INLSA DIAS Comment: Interpretive Data Ages < or [...] NILSA DIAS Blood 05/16/2024 10:1 4 AM NUCLEAR SUPERVISING OPERATOR 05/16/2024 10:50 AM NUCLEAR SUPERVISING OPERATOR Narrative NILSA LARISSA - 05/16/2024 11:23 AM NUCLEAR SUPERVISING OPERATOR These lab test should be done fasting. This means do not eat or drink for at least 12 hours prior to getting your blood drawn. us Smith Gibbs MD LAB BLOOD ORDERABLES Final R esult NILSA ZARATECH [address] [facility]. Department [place] [address] * Colonoscopy (03/01/2024 8:49 AM CDT) Anatomical Region Laterality Modality Other Narrative Procedure Note Jaya Grier MD - 03/01/2024 8:49 AM CDT [facility] GI ENDOSCOPY Patient Name: Sixto Chakraborty Procedure Date: 03/01/2024 8:49 AM Date of : 1950 Admit Type: Outpatient Age: 73 Gender: Female Attending MD: Jaya Grier M.D. Room: [facility] ENDOSCOPY ROOM 06 Note Status: Finalized [...] The scope was passed under direct vision.The [id number]-GR739G colonoscope was introduced through theanus and advanced [...] On: 03/01/2024 8:49 AM Recognized by the [employer] for promoting quality [...] taking vitamin-D. History of end-stage renal disease. English Language Learner Tutor/Model: Catawiki A (S/N [id number]) CLINICAL INFORMATION: Current height: 61 inches Maximum [...] Rafaela Paulino M.D. TW: TW Report ID: [id number] Reading Location: [id number] Procedure Note PaulinoRafaela MD - 01/22/2024 EXAM DESCRIPTION: DEXA AXIAL SKELETON BONE DENSITY 1 OR MORE SITES REASON FOR STUDY: 73 y/o year old F with given history of: Post menopausal status. History of taking vitamin-D. History of end-stagerenal disease. English Language Learner Tutor/Model: Catawiki A (S/N [id number]) CLINICAL INFORMATION: Current height: 61 inches Maximum [...] see below follow up recommendations. [facility] of low bone mineral density may [...] Rafaela Paulino M.D. TW: FAIZAN Report ID: [id number] Reading Location: [id number] us Cherelle Corcoran MD IMG DXA PROCEDURE [...] age 40, based on guidelines of the [employer] (ACR Practice Parameter for the Performance of Screening and Diagnostic Mammography) and [employer]. For women [...] - GENERAL FREDDY HALEY Final Result NILSA [address] [address]ial Department [place] [address] * (ABNORMAL) Albumin Creatinine Ratio, Urine (10/10/2022 11:39 AM CDT) Albumin Ur 3,240.2 mg/L NILSA Comment: Interpretive Data No reference range established. Current interpretive data was last revised 2018. Testing performed by: [address] [address] Creatinine Ur 74.8 mg/dL NILSA Comment: Interpretive Data No reference range established. Current interpretive data was last revised 2018. Testing performed by: [address] [address] Albumin Creatinine Ratio, Ur 4,332(H) 1 - 29 mg/g NILSA Comment:Testing performed by : [address] [address] Urine 10/10/2022 11:3 9 AM CDT 10/10/2022 1:45 PM CDT us Markie Ryan MD LAB URINE ORDERABLES Final Re sult Performing Organization Address City/State/[facility] Co de Phone Number NILSA [address] [facility] Department [place] [address] from Last 3 Months or Most Recently Relevant to Health Maintenance Insurance MEDICARE [facility] Address: [address] [address] MEDICARE IDMO MEDICARE [facility] MEDICARE [facility] Address: [address] [address] [place] [address] [facility] Advance Directives For more information, please contact: [phone] Documents on File Type Date Recorded Patient Hearings Reporter Expl anation ADVANCE DIRECTIVE 07/15/2024 7:58 AM Power of Manufacturing Planner-Medical ADVANCE DIRECTIVE 02/02/2024 12:34 PM Erik r of Manufacturing Planner-Medical * Full Code (Latest Code Status on [...] Gayle Daughter Health Care Agent Care Teams Armhole Feller Handstitching Machine Relationship Specialty Start Date End Date Cherelle Corcoran MD PCP - General Family Medicine 08/30/19 Mark Queen MD Consulting Physician Infectious Diseases 01/10/20 Rudolph Welch MD [address] [place] [address] Consulting Physician Infectious Diseases 12/05/22 Markie Ryan MD [address] [place] [address] Consulting Physician Nephrology 12/05/22 [place] [address] [address] Consulting Physician Nephrology 10/22/23 Jaya Grier MD [address] [place] [address] Consulting Physician Gastroenterology 02/01/24 Edgardo Kauffman MD [address] [place] [address] Surgeon Vascular Surgery 07/15/24
--- OUTSIDE RECORDS SUMMARY | 2024-09-21 14:58 | XMS_ITS ---
Author Name [facility] Address [address] [place], [place] [address] Phone [phone] Organization [facility], NA DOCUMENT DISCLAIMER Multiple document versions may exist, please be sure you review the latest version. The information in the [facility] [place] Continuity of Care Document represents a summary of certain health and medical information. It may not contain the complete medical history for the patient and should be independently verified. The represented time in the document is Eastern Time. 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 Z79.4 Active October [...] Type Relationship of Caregiver Requires some assistance Bathing Dressin g Shopping Meal preparation Laundry Housekeeping M edication management Managing finances Family Characteristics of Home environment Housing Status Patient Resides With House Discharged from [facility], resides with daughter (Areli) Gender and Sex Information Gender Identity Sexual Orientation Female Heterosexual MEDICATIONS Prescribed Medications for Dialysis Treatments Medication Instructions Dosage Route Start Date End Date Stat us Heparin Pork 1,000 Units/mL CatheterLock SelfAdmin Home Arterial Every Treatment 2000 units Arterial Red Port July 29, 2024 July 28, 2025 Active Heparin Pork 1,000 Units/mL CatheterLock SelfAdmin Home Venous Every Treatment 2100 units Venous Blue Port July 29, 2024 July 28, 2025 Active Heparin Pork 1,000 Units/mL Systemic Self Administer Home Bolus, Every Treatment 5000 units Intravenous - push July 29, 2024 July 28, 2025 Active Mircera Once 100 mcg Subcutaneous August 31, 2024 Discontinued Home Medications Medication Instructions Dosage Route Start Date End Date Status aspirin 81 mg ORAL February 02, 2024 Active atorvastatin 20 mg Take by mouth every night at bedtime 1 tablet ORAL June 13, 2024 Active benzonatate 100 mg Take by mouth every eight hours as needed 1 capsule ORAL July 05, 2024 Active benztropine 2 mg Take by [...] 1 needle subcutaneously February 02, 2024 Active gabapentin 100 mg Take by mouth as directed 100 mg ORAL June 07, 2024 Active hydralazine 25 mg Take by mouth twice a day 1 tablet ORAL February 02, 2024 Active pantoprazole 40 mg Take by mouth twice a day 1 tablet ORAL February 02, 2024 Active polyethylene glycol 3350 17 gram Take by mouth once a day as needed 1 packet ORAL November 19, 2023 Active Risperdal 2 mg Take by mouth once a day 1 tablet ORAL July 28, 2024 Active nifedipine 60 mg Take by mouth every evening 1 tablet ORAL June 13, 2024 September 07, 2024 Discontinued VITAL SIGNS Post-Treatment Vital Signs Vital Sign Value Date / Time Blood Pressure-sitting 179/79 mmHg September 19, 2024 06:21 PM Blood Pressure-standing 176/76 mmHg August 06:21 PM Heart Rate 83 beats per minute September 19 06:21 PM Temperature 98.1 deg. F September 19, 2024 0 6:21 PM Weight Vital Sign Value Date / Time Estimated Dry Weight 61 kg August 31 025 11:59 PM Pre-Dialysis 58.9 kg September 19, 2024 0 6:21 PM Post-Dialysis 60.5 kg September 19, 2024 0 6:21 PM Other Other Value Date / Time Height 157 cm November 05, 2023 12: 00 AM Body Mass Index 24.34 kg/m2 August 31, 2024 0 1:18 PM HEALTH CONCERNS Tuberculosis Testing TST Date Administered TST Date Read TST Result 10/29/2023 No information available No info rmation available LAB RESULTS Hematology Result Type Result Value Relevant Referen ce Range Interpretation Date Folate, Serum 7.2 ng/mL No Reference Ran ge Provided - October 29, 2023 Neutrophils 77.9 % 40.0 - 75.0 % High March Platelets 252 1000/mcL 130 - 400 1000/mcL - Octo 2023 WBC (No Diff) 13.68 1000/mcL 4.80 - 10.80 1000/mcL High April 07, 2024 Transferrin Sat. (Calc) 44 % 20 - 55 % - April 07, 2024 TIBC (Calc) 259 mcg/dL 185 - 515 mcg/dL - April 07, 2024 UIBC/TIBC 146 mcg/dL 155 - 355 mcg/dL Low April 07, 2024 Neutrophils 68.8 % 40.0 - 75.0 % - April 232023 WBC (No Diff) 7.86 1000/mcL 4.80 - 10.80 1000/mcL - May 12, 2024 Platelets 327 1000/mcL 130 - 400 [facility] UIBC/TIBC 164 mcg/dL 155 - 355 mcg/dL - May 12, 2024 TIBC (Calc) 212 mcg/dL 185 - 515 mcg/dL - [facility] 2023 Transferrin Sat. (Calc) 23 % 20 - 55 % - May 12, 2024 Ferritin 537 ng/mL 10 - 291 ng/mL High April 232023 Neutrophils 71.5 % 40.0 - 75.0 % - May 222023 Ferritin 613 ng/mL 10 - 291 ng/mL High May 222023 UIBC/TIBC 136 mcg/dL 155 - 355 mcg/dL Low June 06, 2024 TIBC (Calc) 203 mcg/dL 185 - 515 [facility] WBC (No Diff) 8.42 1000/mcL 4.80 - 10.80 1000/mcL - June 06, 2024 Transferrin Sat. (Calc) 33 % 20 - 55 % - June 06, 2024 Reticulocyte 4.45 % 0.80 - 2.10 % High June 06, 2024 Platelets 357 1000/mcL 130 - 400 1000/mcL - Dece mb2023 Folate, Serum 7.1 ng/mL No Reference Ran ge Provided - June 06, 2024 Transferrin Sat. (Calc) 41 % 20 [...] 0.0 - 4.0 % - June 23 025 Neutrophils 65.4 % 40.0 - 75.0 % - June Basophils 3.8 % 0.0 - 1.5 % High June 23 Eosinophil 2.3 % 0.0 - 7.0 % - June 23 025 Monocytes 5.3 % 3.0 - 10.0 % - June 23, 2024 Lymphocytes 21.6 % 19.0 - 48.0 % - June Reticulocyte 1.32 % 0.80 - 2.10 % - June MCHC 31.2 g/dL 30.0 - 36.0 g/dL - June 23, 2024 MCH 31.9 pg 27.0 - 31.0 pg High June Platelets 256 1000/mcL 130 - 400 1000/mcL - 2024 Hemoglobin x 3 35.1 % 36.0 - 48.0 % Low June 23, 2024 RDW 18.0 % 11.5 - 14.5 % High June 23, 2024 Hemoglobin x 3 28.8 % 36.0 - 48.0 % Low July 19, 2024 Platelets 236 1000/mcL 130 - 400 1000/mcL - 2024 MCH 32.4 pg 27.0 - 31.0 pg High June MCHC 30.2 g/dL 30.0 - 36.0 g/dL - July 19, 2024 RDW 16.3 % 11.5 - 14.5 % High July 19, 2024 CELENA 2.6 % 0.0 - 4.0 % - July 19 025 WBC (No Diff) 6.34 1000/mcL 4.80 - 10.80 1000/mcL - July 19, 2024 Eosinophil 2.7 % 0.0 - 7.0 % - July 19 025 Basophils 1.4 % 0.0 - 1.5 % - July 19 025 Monocytes 4.5 % 3.0 - 10.0 % - July 19, 2024 Neutrophils 68.0 % 40.0 - 75.0 % - June Lymphocytes 20.8 % 19.0 - 48.0 % - June Folate, Serum 5.2 ng/mL No Reference Ran ge Provided - July 26, 2024 CELENA 2.3 % 0.0 - 4.0 % - July 26, 2024 WBC (No Diff) 8.10 1000/mcL 4.80 - 10.80 1000/mcL - July 26, 2024 Eosinophil 1.7 % 0.0 - 7.0 % - July 26, 2024 Basophils 0.2 % 0.0 - 1.5 % - July 26, 2024 Lymphocytes 15.9 % 19.0 - 48.0 % Low July Monocytes 3.7 % 3.0 - 10.0 % - July 26, 2024 Neutrophils 76.2 % 40.0 - 75.0 % High July Ferritin 1284 ng/mL 10 - 291 ng/mL High July Reticulocyte 1.14 % 0.80 - 2.10 % - July 26, 2024 Hemoglobin x 3 27.9 % 36.0 - 48.0 % Low Februar 2024 Platelets 252 1000/mcL 130 - 400 1000/mcL - uary 2024 RDW 16.4 % 11.5 - 14.5 % High July MCH 32.0 pg 27.0 - 31.0 pg High July MCHC 31.8 g/dL 30.0 - 36.0 g/dL - July 26, 2024 Transferrin Sat. (Calc) 61 % 20 - 55 % High July 26, 2024 TIBC (Calc) 166 mcg/dL 185 - 515 mcg/dL Low uar 2024 UIBC/TIBC 65 mcg/dL 155 - 355 mcg/dL Low July 26, 2024 Iron 101 mcg/dL 30 - 160 mcg/dL - July 26, 2024 Hemoglobin x 3 26.4 % 36.0 - 48.0 % Low Februar 2024 HGB 9.5 g/dL 12.0 - 16.0 g/dL Low August Hemoglobin x 3 28.5 % 36.0 - 48.0 % Low August Platelets 246 1000/mcL 130 - 400 1000/mcL - 2024 Reticulocyte 1.59 % 0.80 - 2.10 % - August 24, 2024 HCT 30.7 % 37.0 - 47.0 % Low August 24 MCH 31.8 pg 27.0 - 31.0 pg High August 24, 2024 MCHC 30.9 g/dL 30.0 - 36.0 g/dL - August RDW 15.9 % 11.5 - 14.5 % High August 24 Monocytes 5.5 % 3.0 - 10.0 % - August 24 Eosinophil 2.8 % 0.0 - 7.0 % - August 24 Basophils 0.5 % 0.0 - 1.5 % - August 24 CELENA 2.4 % 0.0 - 4.0 % - August 24 WBC (No Diff) 8.81 1000/mcL 4.80 - 10.80 1000/mcL - August 24, 2024 RBC 2.99 mill/mcL 4.20 - 5.40 mill/mcL Low August 24, 2024 Neutrophils 64.3 % 40.0 - 75.0 % - August 24, 2024 Lymphocytes 24.6 % 19.0 - 48.0 % - August 24, 2024 UIBC/TIBC 151 mcg/dL 155 - 355 mcg/dL Low August TIBC (Calc) 262 mcg/dL 185 - 515 mcg/dL - August Iron 111 mcg/dL 30 - 160 mcg/dL - August 24, 2024 Transferrin Sat. (Calc) 42 % 20 - 55 % - August 24, 2024 Metabolic/Renal Result Type Result Value Relevant Referen ce Range Interpretation Date Vitamin B12 520 pg/mL 211 - 911 pg/mL - October 29, 2023 Hemoglobin A1c 7.2 % 4.8 - 5.9 % High May 12, 2024 BUN, Post 25 mg/dL 6 [...] mEq/L 96 - 108 mEq/L - June BUN, Post 15 mg/dL 6 - 19 mg/dL - July 26, 2024 Vitamin B12 523 pg/mL 211 - 911 pg/mL - July 26, 2024 URR, Calc 58 % 65 - 80 % Low July 26, 025 BUN 36 mg/dL 6 - 19 mg/dL High July 26, 2024 BUN/Creat Ratio 9.8 10.0 - 20.0 Low July 26, 2024 Creatinine, Serum 3.67 mg/dL 0.60 - 1.30 mg/dL High July 26, 2024 Bicarbonate 25 mEq/L 22 - 29 mEq/L - July Chloride 102 mEq/L 96 - 108 mEq/L - July Potassium 4.3 mEq/L 3.5 - 5.1 mEq/L - July 26, 2024 Sodium 142 mEq/L 136 - 145 mEq/L - July 26, 2024 BUN, Post 27 mg/dL 6 - 19 mg/dL High August 10, 2024 URR, Calc 60 % 65 - 80 % Low August 10, 025 BUN 67 mg/dL 6 - 19 mg/dL High August 10, 2024 BUN, Post 31 mg/dL 6 - 19 mg/dL High August 24 URR, Calc 56 % 65 - 80 % Low August 24, 2024 Bicarbonate 26 mEq/L 22 - 29 mEq/L - August 24, 2024 Creatinine, Serum 6.09 mg/dL 0.60 - 1.30 mg/dL High August 24, 2024 BUN/Creat Ratio 11.7 10.0 - 20.0 - August BUN 71 mg/dL 6 - 19 mg/dL High August 24 Sodium 145 mEq/L 136 - 145 mEq/L - August 24, 2024 Potassium 4.9 mEq/L 3.5 - 5.1 mEq/L - August 24, 2024 Chloride 103 mEq/L 96 - 108 mEq/L - August 24, 2024 HD Adequacy Result Type Result Value Relevant Referen ce Range Interpretation Date Krt/V 0.00 No Reference Ran ge Provided - April 07, 2024 Krt/V 0.00 No Reference Ran ge Provided - May 25, 2024 spKt/V Daugirdas II (HHD) 0.89 No Reference Range Provided Normal June 23, 2024 wstdKt/V 2.4 No Reference Ran ge Provided - June 23, 2024 wstdKt/V, residual 0.0 No Reference Range Provided - June 23, 2024 wstdKt/V without residual 2.4 No Reference Range Provided - June 23, 2024 Simple Kt/V (Home HD Only) 0.80 No Reference Range Provided Normal June 23, 2024 spKt/V Daugirdas II (HHD) 0.98 No Reference Range Provided Normal July 26, 2024 Simple Kt/V (Home HD Only) 0.87 No Reference Range Provided Normal July 26, 2024 wstdKt/V without residual 1.9 No Reference Range Provided - July 26, 2024 wstdKt/V, residual 0.0 No Reference Range Provided - July 26, 2024 wstdKt/V 1.9 No Reference Ran ge Provided - July 26, 2024 spKt/V Daugirdas II (HHD) 0.99 No Reference Range Provided Normal August 10, 2024 wstdKt/V, residual 0.0 No Reference Range Provided - August 10, 2024 wstdKt/V 2.3 No Reference Ran ge Provided - August 10, 2024 wstdKt/V without residual 2.3 No Reference Range Provided - August 10, 2024 Simple Kt/V (Home HD Only) 0.92 No Reference Range Provided Normal August 10, 2024 wstdKt/V without residual 2.2 No Reference Range Provided - August 24, 2024 Simple Kt/V (Home HD Only) 0.82 No Reference Range Provided Normal August 24, 2024 wstdKt/V, residual 0.0 No Reference Range Provided - August 24, 2024 wstdKt/V 2.2 No Reference Ran ge Provided - August 24, 2024 spKt/V Daugirdas II (HHD) 0.93 No Reference Range Provided Normal August 24, 2024 Bone/Mineral Result Type Result Value Relevant Referen ce Range Interpretation Date Magnesium 1.7 mg/dL 1.6 - 2.6 mg/dL - October 28 024 Vitamin D 25 Hydroxy 7.8 ng/mL 30.0 - 100.0 ng/mL Low October 29, 2023 Magnesium 1.6 mg/dL 1.6 - 2.6 mg/dL - January PTH-Intact, Plasma 250 pg/mL 16 - 80 pg/mL High Apr Magnesium 1.9 mg/dL 1.6 - 2.6 mg/dL - May 12, 2024 PTH-Intact, Plasma 148 pg/mL 16 - 80 pg/mL High May Magnesium 1.8 mg/dL 1.6 - 2.6 mg/dL - June 06, 2024 Corrected Ca x P Product 38 0 - June 23, 2024 Ca x P Product 37 0 - June PTH-Intact, Plasma 182 pg/mL 16 - 80 pg/mL High Jun Calcium, Total 9.2 mg/dL 8.4 - 10.2 mg/dL - 2024 Phosphorus 4.0 mg/dL 2.6 - 4.5 mg/dL - June Vitamin D 25 Hydroxy 67.1 ng/mL 30.0 - 100.0 ng/mL - July 26, 2024 PTH-Intact, Plasma 149 pg/mL 16 - 80 pg/mL High Jul ru2024 Magnesium 1.7 mg/dL 1.6 - 2.6 mg/dL - July 26, 2024 Corrected Ca x P Product 27 0 - - July 26 Alkaline Phosphatase 112 U/L 35 - 104 U/L High Fe bruary 2024 Ca x P Product 26 0 - - July Phosphorus 2.8 mg/dL 2.6 - 4.5 mg/dL - July 26, 2024 Calcium, Total 9.4 mg/dL 8.4 - 10.2 mg/dL - 2024 Corrected Ca x P Product 52 0 - - August 24, 2024 Calcium, Total 10.2 mg/dL 8.4 - 10.2 mg/dL - 2024 Phosphorus 5.1 mg/dL 2.6 - 4.5 mg/dL High August 24, 2024 Ca x P Product 52 0 - 54 - August 24, 2024 PTH-Intact, Plasma 175 pg/mL 16 - 80 pg/mL High Aug Liver/Nutrition Result Type Result Value Relevant Referen ce Range Interpretation Date Glucose 172 mg/dL 70 - 100 mg/dL High June Globulin (Calc) 3.6 g/dL 2.0 - 4.0 g/dL - 2024 A/G Ratio 1.0 1.0 - 2.0 - June 23 Total Protein 7.2 g/dL 6.0 - 8.5 g/dL - June 23, 2024 Albumin (BCG) 3.6 g/dL 3.5 - 5.2 g/dL - June 23, 2024 Glucose 195 mg/dL 70 - 100 mg/dL High July Albumin (BCG) 3.5 g/dL 3.5 - 5.2 g/dL - 2024 Total Protein 7.1 g/dL 6.0 - 8.5 g/dL - 2024 A/G Ratio 1.0 1.0 - 2.0 - July 26 Globulin (Calc) 3.6 g/dL 2.0 - 4.0 g/dL - 2024 Globulin (Calc) 3.6 g/dL 2.0 - 4.0 g/dL - August 24, 2024 A/G Ratio 1.1 1.0 - 2.0 - August 24, 2024 Glucose 160 mg/dL 70 - 100 mg/dL High August 24, 2024 Total Protein 7.7 g/dL 6.0 - 8.5 g/dL - August Albumin (BCG) 4.1 g/dL 3.5 - 5.2 g/dL - August Immunochemistry Result Type Result Value Relevant Referen ce Range Interpretation Date Hep B Surface Ag (HBsAg) Confirmed negative No Reference Range Provided Normal October 15, 2023 HCV s/co ratio 0.06 0.00 - 0.79 - October 28 024 HCV s/co ratio 0.10 0.00 - 0.79 - June 06, 2024 HCV s/co ratio 0.04 0.00 - 0.79 - July 26, 2024 Trace Elements Result Type Result Value Relevant Reference Range Interpre tation Date Aluminum < 5 mcg/L 0 - 10 mcg/L - October 29, 2023 Aluminum 8 mcg/L 0 - 10 mcg/L - February 10 024 Aluminum 7 mcg/L 0 - 10 mcg/L - June 06, 2024 Aluminum < 5 mcg/L 0 - 10 mcg/L - July 26, 2024 Infectious Diseases Result Type Result Value Relevant Referen ce Range Interpretation Date Hep B core Ab Total (anti-HBc) Negative No Reference Range Provided - October 29, 2023 Hep B Surface Ag (HBsAg) Negative No Reference Range Provided - July 26, 2024 Hep B Surface Ab (anti-HBs) 814 mIU/mL No Reference Range Provided - July 26, 2024 HCV Ab (anti-HCV) Nonreactive No Reference R arthur Provided - July 26, 2024 DIALYSIS PRESCRIPTION NxStage Hemodialysis Data Element Value Order Date/Time August 31, 2024 Frequency 4X Week Treatment Days MonWedFriSun Dialyzer/Cartridge CAR 172 Therapy Fluid (dialysate) 2.0 K 45 Lacta te Estimated Treatment Time 210 min Volume per Treatment (Liters) 30 L Dialysate Flow Rate 8.6 L/hr Maximum Flow Fraction (%) 36% Maximum Ultrafiltration Rate 6 ml/Kg/hr Blood Flow Rate (mL/min) 400 mL/min Estimated Dry Weight 61 kg Dialysis Access Hemodialysis-CV Cath eter-Tunneled, Chest, Right Jugular Access Placed on July 15, 2024 IMMUNIZATIONS Vaccine Date Dose Route Status [...] Date Resuscitation status Full Code Markie Ryan Sep 21, 2024 DIALYSIS TREATMENTS NxStage-HHD Date Pre-Treatment Vitals Post-Treatment Vitals Durat ion(hr) Exchanges BFR(mL/min) Cartridge Type Dialysate Dialysis Access Meds-entered by patient September 15, 2024 Weight 59.5 kg Blood Pressure-sitt ing 176/65 mmHg 3:27 1 of 11 400 CAR-172 2K 45 Lactate Blood Pressure-sitting 192/78 mmHg Blood Pressure-standing 1 47/71 mmHg 2 of 11 400 Blood Pressure-standing 158/93 mmHg Heart Rate 101 beats per minute 3 of 11 400 Heart Rate 78 beats per minute Temperature 98.1 deg. F 4 of 11 400 Temperature 98.7 deg. F - - 5 of 11 400 - - - - 6 of 11 400 - - - - 7 of 11 400 - - - - 8 of 11 400 - - - - 9 of 11 400 - - - - 10 of 11 400 - - - - 11 of - September 17, 2024 Weight 59.5 kg Weight 59.4 kg 3:27 1 of 11 400 CAR-172 2K 45 Lactate Hemodialysis-CV Catheter-Tunneled, Chest, Right Jugular Access Placed on July 15, 2024 Heparin 2100 Via Access Heparin 5000 Via Access Heparin 5000 Access Heparin 2000 Via Access Blood Pressure-sitting 150/93 mmHg Blood Pressure-sitting 15 3/48 mmHg 2 of 11 400 Blood Pressure-standing 139/59 mmHg Blood Pressure-standing 138/63 mmHg 3 of 11 400 Heart Rate 76 beats per minute Heart Rate 103 beats per minute 4 of 11 400 Temperature 97.9 deg. F Temperature 97.5 deg. F 5 of 11 40 0 - - - - 6 of 11 400 - - - - 7 of 11 400 - - - - 8 of 11 400 - - - - 9 of 11 400 - - - - 10 of 11 400 - - - - 11 of - September 19, 2024 Weight 58.9 kg Weight 60.5 kg 3:27 1 of 10 400 CAR-172 2K 45 Lactate Hemodialysis-CV Catheter-Tunneled, Chest, Right Jugular Access Placed on July 15, 2024 Heparin 5000 Via Access Heparin 5000 Access Heparin 2000 Via Access Heparin 2100 Via Access Blood Pressure-sitting 195/74 mmHg Blood Pressure-sitting 17 9/79 mmHg 2 of 10 400 Blood Pressure-standing 184/73 mmHg Blood Pressure-standing 176/76 mmHg 3 of Heart Rate 71 beats per minute Heart Rate 83 beats per minute 4 of Temperature 98.2 deg. F Temperature 98.1 deg. F 5 of 40 0 - - - - 6 of - - - - 7 of - - - - 8 of - - - - 9 of - - - - 10 -
--- OUTSIDE RECORDS SUMMARY | 2024-09-21 14:58 | XMS_ITS | CONTINUITY OF CARE DOCUMENT ---
Author Name flash vidales Address Unknown Organization [facility] Address [address] [place] [address] Phone [phone] Care Team Providers Care Oracle Manager Name Role Phone Jared YOUNG, Meghann Unavailable [phone] LONDON YOUNG, DUANE Unavailable LONDON YOUNG, DUANE Unavailable [phone] PROBLEMS Condition Status Date Provider Notes Cardiology examination active Audie Blas arthritis active Audie Blas CHF active Audie Blas Dementia active Audie Blas Depression active Audie Blas Diabetic neuropathy active Audie Blas Hyperlipidemia active Audie Blas HTN essential active Audie Bals ESRD - On Hemodialysis active Audie Blas Diabetes mellitus, Type II active Audie Chen atty Schizophrenia active Audie Blas anemia active Audie Blas Parkinson's disease active Audie Blas ENCOUNTERS Date Type Provider Location Encounter Diag nosis 08/15 - 08/15 In-person encounter Office Visit Meghann Coleman MD [facility] 03/07 - 07/06 In-person encounter Office Visit Meghann Coleman MD [facility] 11/29 - 11/30 In-person encounter Office Visit Meghann Coleman MD [facility] Cardiology examinationarthritisCHFDementiaDepressionDiabetic neuropathyHyperlipidemiaHTN essentialESRD - On HemodialysisDiabetes mellitus, Type IISchizophreniaanemiaParkinson's disease VITAL SIGNS Date Observation Value Provider Body Mass Index (Ratio) 25.60 kg/m2 Kyler Coleman MD blood pressure, diastolic 76 mm[Hg] Madisyn johnson [facility] blood pressure, systolic 114 mm[Hg] Sheree chatterjee [facility] oxygen saturation, oximetry 96 % Brandie [facility] pulse rate 75 /min Brandie [facility] blood pressure, cuff size regular Madisyn johnson [facility] weight E&M 140 [lb_av] Brandie [facility] height E&M 62 [in_i] [facility] Body Mass Index (Ratio) 25.60 kg/m2 Kyler Coleman MD blood pressure, diastolic 57 mm[Hg] [facility] blood pressure, systolic 119 mm[Hg] rusty [facility] oxygen saturation, oximetry 98 % [facility] pulse rate 56 /min [facility] respiratory rate E&M 12 /min [facility] weight E&M 140 [lb_av] [facility], cuff size regular Anand zheng [facility] height E&M 62 [in_i] [facility] Body Mass Index (Ratio) 24.87 kg/m2 [...] Value Provider smoking status Never smoker Meghann aamya MD number of grandchildren Meghann Coleman MD Shiloh Nalluri COMMUNICATIONS PROJECT MANAGER smoking status Never smoker Shiloh Florencialu ri COMMUNICATIONS PROJECT MANAGER smoking status Never smoker INSURANCE PROVIDERS Payer name Policy type / Coverage type Rena red republican ID [facility] Medicaid 0 [id number] [place] MEDICARE PART B Medicare [id number] ADVANCE DIRECTIVES Name Date DISCUSSED - NO [...] patient. 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 espinoza Barrientos NP Cardiology:A1c 8.2 Her updated medication list for this problem includes: Lantus Solostar U-100 Insulin 100 Unit/ml (3 Ml) Insulin Pen (Insulin glargine) Shiloh Barrientos NP Cardiology:Hgb 9.5 Shiloh Florencialuri COMMUNICATIONS PROJECT MANAGER Cardiology: A ppears compensated, continue current medications [...] mouth every day Meghann Coleman MD Cardiology:per tar worker Dr. espinoza Coleman MD Cardiology:Appears c ompensated, continue current medications Meghann Coleman MD Date Name Arterial Duplex Bi-L ower EX HISTORY OF PROCEDURES Procedure Date Procedure Name Provider Procedure Notes S tatus Complex e/m visit add on Meghann Coleman MD completed Complex e/m visit add on Isidro Hahn MD completed EKG Meghann Coleman MD complet ed
--- OUTSIDE RECORDS SUMMARY | 2024-09-21 14:58 | XMS_ITS | Clinical Summary ---
Author Organization [facility] Address [address], [address] [address] Phone Care Team Providers Care Assistant Professor Of Criminal Justice Name Role Phone Cherelle Corcoran MD Primary [...] - 144 mmol/L 03/11/2019 11:10 AM CDT [facility] POTASSIUM 4.8 3.5 - 5.1 mmol/L 03/11/2019 11:10 AM CDT [facility] CHLORIDE 96(L) 100 - 110 mmol/L 03/11/2019 11:10 AM CDT [facility] CO2, VENOUS 28 22 - 32 mmol/L 03/11/2019 11:10 AM CDT [facility] ANION GAP 17.8 8.0 - 20.0 mmol/L 03/11/2019 11:10 AM CDT [facility] GLUCOSE 216(H) 70 - 99 mg/dL 03/11/2019 11:10 AM CDT [facility] BUN 22 8 - 23 mg/dL 03/11/2019 11:10 AM CDT [facility] CREATININE, BLOOD 0.66 0.60 - 1.10 mg/dL 03/11/2019 11:10 AM [facility] BUN/CREATININE RATIO 33(H) 12 - 20 ratio 03/11/2019 11:10 AM [facility] TOTAL PROTEIN 8.4(H) 6.0 - 8.3 g/dL 03/11/2019 11:10 AM [facility] ALBUMIN 4.3 3.5 - 5.2 g/dL 03/11/2019 11:10 AM [facility] Comment: The colormetric methods used for the determination of Albumin may lead to falsely elevated test results in patients suffering from renal failure or insufficiency due to interference with other proteins. A/G RATIO 1.0 1.0 - 2.0 03/11/2019 11:10 AM [facility] CALCIUM 10.4(H) 8.9 - 10.3 mg/dL 03/11/2019 11:10 AM [facility] T BILI 0.3 <=1.2 mg/dL 03/11/2019 11:10 AM [facility] SGOT (AST) 19 <=32 U/L 03/11/2019 11:10 AM [facility] Comment: Hemolysis present: results may be falsely elevated. SGPT (ALT) 14 <=33 U/L 03/11/2019 11:10 AM [facility] ALKALINE PHOSPHATASE 123(H) 35 - 105 U/L 03/11/2019 11:10 AM [facility] GFR, EST. NONAFRICAN >60 >=60 03/11/2019 11:10 AM [facility] GFR, EST. >60 >=60 019 11:10 AM [facility] Comment: Creatinine Clearance is the preferred criteria for selecting drug dose adjustments in renally impaired patients. The GFR is provided as additional pertinent clinical information. GFR is reported in mL/min/1.73 sq m. Blood specimen (specimen) Venous Catheter (IV) / Unknown 03/11/2019 10:23 AM CDT 03/11/2019 10:46 AM CDT us Ronald Haro MD CHEMISTRY ORDERABLES Final Result Performing Organization Address City/[facility]/ZIP Co de Phone Number [facility] [place] [address] * (ABNORMAL) POCT GLYCOSYLATED HEMOGLOBIN (01/20/2019 9:44 AM CDT) HGB-A1C 15(A) 4 - 6 Comment:above 15 01/20/2019 9:44 AM CDT us Choco Morris PAC POINT OF CARE TESTING (M ANUAL) Final Result * Stool, Occult Blood, Diagnostic (03/30/2017 2:09 PM CDT) OCCULT BLOOD DIAG, GI BLEED Negative Negative 03/30/2017 2:29 PM CDT [facility] Stool specimen (specimen) STOOL SPECIMEN / Unknown Non-Phlebotomy Collection / Unknown 03/30/2017 2:09 PM CDT 03/30/2017 2:23 PM CDT us Anali Ortiz PAC BODY FLUIDS & STOOLS ORDERAB LES Final Result Performing Organization Address City/[facility]/ZIP Co de Phone Number [facility] [address] [place] [address] * CHERYL SCREENING BILATERAL DIGITAL W CAD [...] measures to stabilize the patient. Care Teams Assistant Professor Of Criminal Justice Relationship Specialty Start Date End Date Cherelle Corcoran MD [address] [place] [id number] PCP - General Family Medicine 02/12/24 Sim López MD [address] [place] [address] Consulting Physician Oncology 02/12/24
--- OUTSIDE RECORDS SUMMARY | 2024-09-21 14:58 | XMS_ITS | Encounter Summary ---
Author Organization [facility] Healthcare Address [address] [place] [address] Care Team Providers Care Composition Stone Applicator Name Role Phone Cherelle Corcoran MD Primary Care Pro vider Mark Queen MD Unavailable [phone] Rudolph Welch MD Unavailable Markie Ryan MD Unavailable [phone] Jimbo Strauss MD Unavailable [phone] Jaya Grier MD Unavailable Edgardo Kauffman MD Unavailable [phone] Reason for Visit * Reason Onset Date Comments Wound Infection 09/21/2024 Weakness - Generalized 09/21/2024 Confusion 09/21/2024 Encounter Details Date Type Department Care Team (Late st Contact Info) Description 09/21/[address] [facility] Medical Group Primary Care at [address] [place] [address] Cherelle Corcoran MD [facility] [address] Social History Tobacco Use Types [...] the past 12 months has th e [employer], gas, oil, or water [employer] threatened to shut off services in your [...] you attend chur ch or restorationist services? More than 4 times per year [...] in a chcf (including now)? No 10/30/2023 PHQ-9 Answer Date [...] living in a chcf (including now)? No 04/20/2024 Personal Safety Answer Date Recorded Have you ever been in or are you currently in a harmful physical or emotional relationship or is someone making you feel afraid or unsafe? 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 Thanks! * Telephone Encounter - Monserrat Gillis RN - 09/21/2024 12:46 PM CDT Triage Disposition- go to ED now. Daughter to take her. Will route to Cherelle Corcoran MD as ITALO Singleton calls reporting increased weakness. Had Dialysis on Thursday She reports open wound to her abdomen- no drainage- warm to touch Increasing confusion as well as incontinence. Reason for Disposition SEVERE pain in the wound Protocols used: Wound Infection [id number] * Telephone Encounter - Monserrat Gillis RN - 09/21/2024 12:37 PM CDT Regarding: open wound and weakness ----- Message from September sent at 09/21/2024 12:36 PM CDT ----- Symptom Based Call Chief Complaint(s): open wound and weakness Duration: 2 days What type of symptom(s) is the patient experiencing? Non-Emergent. Is this a new or reoccurring symptom(s)? new What have you tried to help your symptom(s)? N/a Why was appointment not scheduled? Appointment availability did not meet the patient's need. Additional Comments: patient dx end stage renal diease/ patient has open wound on abdomen and is very weak Does message need to be routed? Yes-Action Needed documented in this encounter Plan of Treatment Scheduled Procedures Name Priority Associated Diagnoses Date/Ti me COLONOSCOPY Iron deficiency anemia due to chronic blood loss documented as of this encounter Visit Diagnoses Not on filedocumented in this encounter Care Teams Composition Stone Applicator Relationship Specialty Start Date End Date Cherelle Corcoran MD PCP - General Family Medicine 08/30/19 Mark Queen MD Consulting Physician Infectious Diseases 01/10/20 Rudolph Welch MD [address] [facility] [address] [place] [address] Consulting Physician Infectious Diseases 12/05/22 Markie Ryan MD [address] [facility] [address] [place] [address] Consulting Physician Nephrology 12/05/22 [place] [address] [address] Consulting Physician Nephrology 10/22/23 Jaya Grier MD [address] [facility] [address] [place] [address] Consulting Physician Gastroenterology 02/01/24 Edgardo Kauffman MD [address] [facility] [address] [place] [address] Surgeon Vascular Surgery 07/15/24 documented as of this encounter
--- OUTSIDE RECORDS SUMMARY | 2024-09-21 14:58 | XMS_ITS | Encounter Summary ---
Author Organization [facility] Healthcare Address [address] [place] [address] Care Team Providers Care Development Rep Name Role Phone Cherelle Corcoran MD Primary Care Pro vider Mark Queen MD Unavailable [phone] Rudolph Welch MD Unavailable [phone] Markie Ryan MD Unavailable [phone] Jimbo Strauss MD Unavailable [phone] Jaya Grier MD Unavailable Edgardo Kauffman MD Unavailable [phone] Reason for Visit * Reason Onset Date Comments Weakness - Generalized 06/27/2024 Encounter Details Date Type Department Care Team (Late st Contact Info) Description 06/27/2024 Nurse Triage [facility] Medical Group Primary Care at [place] [address] [facility] [address] [place] [address] Cherelle Corcoran MD [facility] [address] [place] [address] Social History Tobacco Use Types [...] doctor or pharmacy Often 01/20/2024 [facility] Utilities Answer Date Recorded In the [...] in a alf (including now)? No 10/30/2023 PHQ-9 Answer Date [...] the past [address] [facility], were you homeless or living in a [...] on file Legal Sex Female 9:03 AM CORONER TECHNICIAN Gender Identity Female 02/08/2020 6:39 PM CDT Sexual Orientation Not on file documented as of this encounter Miscellaneous Notes * Telephone Encounter - Cherelle Corcoran MD - 06/28/2024 10:05 AM CST Thank you NER TECHNICIAN * Telephone Encounter - Sandy Mota MA - 06/28/2024 9:47 AM CST Spoke with pt daughter and she stated that the ambulance took her to the nearest ER which was [facility] in [facility]. She is currently admitted into [facility] to rule out stroke. They are doing a MRI today per pt daughter. She is still in the ER as they do not have a bed for her just yet upstairs in the hospital. I advised Ursula to keep us updated with any big changes via [employer] if she needs to. NER TECHNICIAN * Telephone Encounter - Cherelle Corcoran MD - 06/28/2024 9:13 AM CST Acknowledged, it does not look like she went to [facility]. Can you follow up to see if she went to [facility] and what status is? thanks NER TECHNICIAN * Telephone Encounter - Ruby Chapman RN [...] the triager Protocols used: Weakness (Generalized) and [id number] NER TECHNICIAN * Telephone Encounter - Ruby Chapman RN - 06/27/2024 4:05 PM CST Regarding: explosive diarrhea, not moving like her hands are cramped up, barely talking to her and she's not e ----- Message from Berenice Hobbs sent at 06/27/2024 4:02 PM CORONER TECHNICIAN ----- Symptom Based Call Chief Complaint(s): Areli [...] not scheduled? Requesting advice from clinical steam press operator. Additional Comments: Caller stated the patient was suppose to go to dialysis today on 06/27/24 but didn't due to the weather, please advise. Does message need to be routed? Yes-Action Needed NER TECHNICIAN documented in this encounter Plan of Treatment Scheduled Procedures Name Priority Associated Diagnoses Date/Ti me COLONOSCOPY Iron deficiency anemia due to chronic blood loss documented as of this encounter Visit Diagnoses Not on filedocumented in this encounter Additional Health Concerns Infection Onset Date Last Indicated Resolved Time COVID: Suspected 07/12/2024 07/12/2024 07/12/2024 12:39 PM CORONER TECHNICIAN COVID: Suspected 07/31/2024 07/31/2024 07/31/2024 2:06 PM CORONER TECHNICIAN documented as of this encounter Care Teams Development Rep Relationship Specialty Start Date End Date Cherelle Corcoran MD PCP - General Family Medicine 08/30/19 Mark Queen MD Consulting Physician Infectious Diseases 01/10/20 Rudolph Welch MD [address] [place] [address] [address] [place] [address] Consulting Physician Infectious Diseases 12/05/22 Markie Ryan MD [address] [facility] [address] [place] [address] Consulting Physician Nephrology 12/05/22 [place] [address] [address] Consulting Physician Nephrology 10/22/23 Jaya Grier MD [address] [facility] [address] [place] [address] Consulting Physician Gastroenterology 02/01/24 Edgardo Kauffman MD [address] [facility] [address] [place] [address] Surgeon Vascular Surgery 07/15/24 documented as of this encounter
--- OUTSIDE RECORDS SUMMARY | 2024-09-21 14:58 | XMS_ITS | Encounter Summary ---
Author Organization [facility] Healthcare Address [address] [place] [address] Care Team Providers Care Post Doctoral Researcher Name Role Phone Cherelle Corcoran MD Primary Care Pro vider Mark Queen MD Unavailable [phone] Rudolph Welch MD Unavailable [phone] Markie Ryan MD Unavailable [phone] Jimbo Strauss MD Unavailable [phone] Jaya Grier MD Unavailable Edgardo Kauffman MD Unavailable [phone] Encounter Details Date Type Department Care Team (Late st Contact Info) Description 09/14/2024 Results Follow-Up [facility] Medical Group Gastroenterology at [address] [place] [address] Jaya Grier MD [address] [place] [address] [address] [place] [address] Social History Tobacco Use Types [...] from doctor or pharmacy Often 01/20/2024 [facility] Utilities Answer Date Recorded In the past 12 months has th e [employer], gas, oil, or water [employer] threatened to shut off services in your [...] How often do you attend chur or sabianism services? More than 4 times [...] in a fdc (including now)? No 10/30/2023 PHQ-9 Answer Date [...] any time in the past 12 m 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 Gender Identity Female 02/08/2020 6:39 PM CDT Sexual Orientation Not on file documented as of this encounter Plan of Treatment Scheduled Procedures Name Priority Associated Diagnoses Date/Ti me COLONOSCOPY Iron deficiency anemia due to chronic blood loss documented as of this encounter Visit Diagnoses Not on filedocumented in this encounter Care Teams Post Doctoral Researcher Relationship Specialty Start Date End Date Cherelle Corcoran MD PCP - General Family Medicine 08/30/19 Mark Queen MD Consulting Physician Infectious Diseases 01/10/20 Rudolph Welch MD [address] [facility] [address] [place] [address] Consulting Physician Infectious Diseases 12/05/22 Markie Ryan MD [address] [facility] [address] [place] [address] Consulting Physician Nephrology 12/05/22 [place] [address] [address] Consulting Physician Nephrology 10/22/23 Jaya Grier MD [address] [facility] [address] [place] [address] Consulting Physician Gastroenterology 02/01/24 Edgardo Kauffman MD [address] [facility] [address] [place] [address] Surgeon Vascular Surgery 07/15/24 documented as of this encounter
--- OUTSIDE RECORDS SUMMARY | 2024-09-21 14:58 | XMS_ITS | Encounter Summary ---
Author Organization [facility] Healthcare Address [address] [place] [address] Care Team Providers Care Quantitative Analyst Developer Name Role Phone Cherelle Corcoran MD Primary Care Pro vider Mark Queen MD Unavailable [phone] Xenia Padilla LPN Unavailable [phone] Sarahy Schmidt PRESCHOOL ASSISTANT PRINCIPAL Unavailable [phone] Brandie Callejas MA Unavailable Unav ailable Xenia Padilla LPN Unavailable [phone] Samples, Melania Joel RN Unavailable Anam Costa LCSW Unavailable Unavailabl e Samples, Melania Joel RN Unavailable Rudolph Welch MD Unavailable Markie Ryan MD Unavailable [phone] Nadege Ramírez RN Unavailable Dulce Vega RN Unavailable Jimbo Strauss MD Unavailable [phone] Jaya Grier MD Unavailable Edgardo Kauffman MD Unavailable Encounter Details Date Type Department Care Team (Late st Contact Info) Description 12/26/2019 Telephone [facility] Nutrition and Diabetic Education [address] [facility] [place] [address] Anastasia Leblanc, RN Social History Tobacco Use [...] file Legal Sex Female 9:03 AM MATERIALS ENGINEERING TECHNICIAN Gender Identity Female 02/08/2020 6:39 [...] CDT COVID19 08/13/2021 08/13/2021 08/24/2021 3:05 AM MATERIALS ENGINEERING TECHNICIAN COVID: Recovered Comment:Added based on recent COVID infection. 08/24/2021 08/26/2021 12/22/2021 3:05 AM C DT COVID: Suspected Comment:11/15/2021 pt is covid recovered 11/15/2021 11/15/2021 11/15/2021 3:32 PM C DT COVID: Suspected 11/15/2021 11/16/2021 11/16/2021 1:45 AM CDT Human metapneumovirus, conta ct + droplet 11/16/2021 11/16/2021 11/30/2021 3:05 AM C DT COVID: Suspected 05/08/2022 05/08/2022 05/08/2022 4:26 PM MATERIALS ENGINEERING TECHNICIAN COVID: Suspected 06/19/2022 06/19/2022 06/19/2022 12:37 PM MATERIALS ENGINEERING TECHNICIAN COVID: Suspected 08/01/2022 08/01/2022 08/01/2022 2:28 PM MATERIALS ENGINEERING TECHNICIAN COVID: Suspected 10/02/2022 10/02/2022 10/02/2022 8:14 PM CDT MRSA Comment:Toe 11/08/22, 12/12/22 11/08/2022 12/12/2022 06/10/2023 3:05 AM MATERIALS ENGINEERING TECHNICIAN COVID: Suspected 12/08/2022 12/08/2022 12/08/2022 8:17 PM CDT COVID: Suspected 07/27/2023 07/27/2023 07/28/2023 12:57 AM MATERIALS ENGINEERING TECHNICIAN COVID: Suspected 10/29/2023 10/30/2023 10/30/2023 10:59 AM CDT 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 12/19/2023 12/19/2023 3:58 PM CDT 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 12/29/2023 06/26/2024 3:05 AM MATERIALS ENGINEERING TECHNICIAN COVID: Suspected 04/19/2024 04/19/2024 04/20/2024 12:44 AM CDT COVID: Suspected 07/12/2024 07/12/2024 07/12/2024 12:39 PM MATERIALS ENGINEERING TECHNICIAN COVID: Suspected 07/31/2024 07/31/2024 07/31/2024 2:06 PM MATERIALS ENGINEERING TECHNICIAN documented as of this encounter Care Teams Quantitative Analyst Developer Relationship Specialty Start Date End Date Cherelle Corcoran MD PCP - General Family Medicine 08/30/19 Mark Queen MD Consulting Physician Infectious Diseases 01/10/20 Xenia Padilla LPN Museum Guide 09/19/21 09/19/21 Sarahy Schmidt LPN [address] [place] [address] [address] [place] [address] ACO Care Water Purifier 11/27/21 12/25/21 Brandie Callejas MA Patient Valet Cashier 06/20/22 06/22/22 Xenia Padilla LPN [address] [place] [address] [address] [place] [address] Museum Guide 06/24/22 06/24/22 Samples, Melania Joel RN [address] [place] [address] [address] [place] [address] Museum Guide 07/22/22 08/21/22 Anam Costa LCSW [address] [place] [address] [address] [place] [address] Quality Review Specialist 08/08/22 02/18/23 Samples, Melania Joel RN [address] [place] [address] [address] [place] [address] Museum Guide 08/22/22 12/07/22 Rudolph Welch MD [address] [facility] [address] [place] [address] Consulting Physician Infectious Diseases 12/05/22 Markie Ryan MD [address] [facility] [address] [place] [address] Consulting Physician Nephrology 12/05/22 Nadege Ramírez RN [address] [place] [address] [address] [place] [address] Museum Guide 01/20/23 02/23/23 Dulce Vega, ALIREZA [address] [place] [address] [address] [place] [address] Museum Guide 10/07/23 05/03/24 [place] [address] [address] [place] [address] Consulting Physician Nephrology 10/22/23 Jaya Grier MD [address] [facility] [address] [place] [address] Consulting Physician Gastroenterology 02/01/24 Edgardo Kauffman MD [address] [facility] [address] [place] [address] Surgeon Vascular Surgery 07/15/24 documented as of this encounter
[2024-09-21 15:34] LABS: Influenza A QL RT-PCR Negative (Negative); Influenza B QL RT-PCR Negative (Negative); RSV RNA, RT-PCR Negative (Negative); SARS-CoV-2 RNA PCR Negative (Negative)
--- NOTE | 2024-09-21 15:39 | PC.NURSE ---
Marguerite Mir, RN attempts IV with no success. this RN attempts twice with no success.
--- OUTSIDE RECORDS SUMMARY | 2024-09-21 16:02 | XMS_ITS ---
Author Organization [facility] Address [address] [place] [address] Care Team Providers Care Frame Stylist Name Role Phone Cherelle Corcoran MD Primary Care Pro vider Mark Queen MD Unavailable [phone] Rudolph Welch MD Unavailable Markie Ryan MD Unavailable Jimbo Strauss MD Unavailable [phone] Jaya Grier MD Unavailable Edgardo Kauffman [...] S, VENOUS Routine 09/13/2024 8:54 AM CDT OK INJECTION SINGLE/BUSINESS ANALYTICS ANALYST TRIGGER POINT 1/2 MUSCLES Routine 09/08/2024 9:00 AM CDT Myofascial pain syndrome, cervical CT HEAD WO CONTRAST Schedule Routine, Read Routine (OP Routine) 09/07/2024 POCT HEMOGLOBIN A1C Routine 08/22/2024 8:55 AM PRIMARY MONTESSORI TEACHER Type 2 diabetes mellitus with diabetic nephropathy, with long-term current use of insulin (HCC) RESPIRATORY PATHOGEN PANEL STAT 07/31 1:02 PM PRIMARY MONTESSORI TEACHER DIABETIC EYE EXAM Routine 07/27/2024 12:37 PM PRIMARY MONTESSORI TEACHER HM DIABETES EYE EXAM Routine 07/22/2024 XR CHEST 1 VIEW ED Urgent/IP Urgent 07/15/2024 1:11 PM PRIMARY MONTESSORI TEACHER RPL DRE CVC W/O PUMP [id number] Routine 07/15 12:40 PM PRIMARY MONTESSORI TEACHER ESRD (end stage renal disease) on dialysis (HCC) XR CHEST 1 VIEW ED Urgent/IP Urgent 07/14/2024 1:16 PM PRIMARY MONTESSORI TEACHER EGFR STAT 07/14/2024 12:34 PM PRIMARY MONTESSORI TEACHER DIFFERENTIAL AUTO STAT 07/14/2024 12:34 PM PRIMARY MONTESSORI TEACHER BASIC METABOLIC PANEL STAT 07/14/2024 12:34 PM PRIMARY MONTESSORI TEACHER CBC WITH AUTO DIFFERENTIAL STAT 07/14 12:34 PM PRIMARY MONTESSORI TEACHER SURGICAL PATHOLOGY Routine 07/13/2024 11:10 AM PRIMARY MONTESSORI TEACHER Anemia, unspecified type Gastritis without bleeding, unspecified chronicity, unspecified gastritis type ESOPHAGOGASTRODUODENOSCOPY BIOPSY 07/13/2024 11:03 AM PRIMARY MONTESSORI TEACHER Anemia, unspecified type Gastritis without bleeding, unspecified chronicity, unspecified gastritis type EGD 07/13/2024 10:59 AM PRIMARY MONTESSORI TEACHER POC BLOOD GAS AND CHEMISTRIE S, VENOUS Routine 07/13/2024 10:12 AM PRIMARY MONTESSORI TEACHER TROPONIN T HIGH-SENSITIVITY 2-HOUR Timed 07/12/2024 1:59 PM PRIMARY MONTESSORI TEACHER URINALYSIS, MICROSCOPIC ONLY STAT 1:05 PM PRIMARY MONTESSORI TEACHER DRUGS OF ABUSE SCREEN, URINE WITHOUT CONFIRMATION STAT 07/12/2024 1:05 PM PRIMARY MONTESSORI TEACHER URINE CULTURE STAT 07/12/2024 1:05 PM PRIMARY MONTESSORI TEACHER URINALYSIS AND REFLEX TO MICROSCOPIC AND CULTURE STAT 07/12/2024 1:05 PM PRIMARY MONTESSORI TEACHER THYROID FUNCTION CASCADE STAT 025 11:53 AM PRIMARY MONTESSORI TEACHER EGFR STAT 07/12/2024 11:53 AM PRIMARY MONTESSORI TEACHER DIFFERENTIAL AUTO STAT 07/12/2024 11:53 AM PRIMARY MONTESSORI TEACHER TROPONIN T HIGH-SENSITIVITY SERIES (BASELINE, 2HR, 4HR, 6HR) STAT 07/12/2024 11:53 AM PRIMARY MONTESSORI TEACHER CBC WITH AUTO DIFFERENTIAL STAT 07/12 11:53 AM PRIMARY MONTESSORI TEACHER COMPREHENSIVE METABOLIC PANEL STAT 11:53 AM PRIMARY MONTESSORI TEACHER INFLUENZA A/B, RSV, AND COVID-19 PCR Routine 07/12/2024 11:53 AM PRIMARY MONTESSORI TEACHER ECG 12-LEAD STAT 07/12/2024 11:48 [address] FACIAL BONES WO CONTRAST ED 06/23 10:38 [address]I [address]ER CT CERVICAL SPINE WO CONTRAST ED 10:38 AM PRIMARY MONTESSORI TEACHER CT HEAD WO CONTRAST ED 07/12/2024 10:38 AM PRIMARY MONTESSORI TEACHER XR SHOULDER RIGHT 2 OR MORE VIEWS ED 07/12/2024 10:08 AM PRIMARY MONTESSORI TEACHER XR SHOULDER LEFT 2 OR MORE VIEWS ED 07/12/2024 10:08 AM PRIMARY MONTESSORI TEACHER POCT GLUCOSE DEVICE Routine 07/12/2024 9:33 AM PRIMARY MONTESSORI TEACHER LIPID PANEL Routine 05/16/2024 10:14 AM PRIMARY MONTESSORI TEACHER Mixed hyperlipidemia COLONOSCOPY 03/01/2024 8:49 AM CDT [...] 595 g 024 Active FreeStyle Madhav 3 [place] [facility] Use Madhav 3 reader to scan Madhav [...] current use of insulin ([facility]) Use to continually monitor glucose, change sensor [...] current use of insulin ([facility]) Use Madhav 3 reader to scan Madhav [...] 07/07/2024 Assessment & Plan (07/14/2024 2:30 PM PRIMARY MONTESSORI TEACHER): Continue Lipitor Assessment & Plan (07/14/2024 8:56 AM PRIMARY MONTESSORI TEACHER): Ok to restart atorvastatin, but also given [...] 11/02/2023 Assessment & Plan (07/14/2024 2:39 PM PRIMARY MONTESSORI TEACHER): Patient is needing a Perma catheter exchange [...] proceed. Assessment & Plan (07/14/2024 8:51 AM PRIMARY MONTESSORI TEACHER): Following with nephrology Assessment & Plan (01/06/2024 [...] 10/30/2023 Assessment & Plan (05/06/2024 7:49 AM PRIMARY MONTESSORI TEACHER): Reviewed hospital discharge summary Now resolved Upcoming [...] stable Assessment & Plan (07/24/2023 1:51 PM PRIMARY MONTESSORI TEACHER): Chronic/stable Parkinsonism 08/14/2022 Assessment & Plan (07/14/2024 8:54 AM PRIMARY MONTESSORI TEACHER): Following with neurology, recommend reaching out to them in regards to restarting benztropine. Consider waiting until after restarts other medications given daughter reports tremors controlled off benztropine currently Assessment & Plan (11/10/2023 4:43 PM CDT): Following with neurology On cogentin Assessment & Plan (07/24/2023 1:50 PM PRIMARY MONTESSORI TEACHER): Following with neurology On cogentin twice a day Assessment & Plan (01/23/2023 9:20 AM CDT): Following with neurology On cogentin twice a day Assessment & Plan (10/10/2022 10:41 AM CDT): Following with neurology On cogentin Assessment & Plan (08/14/2022 10:46 AM PRIMARY MONTESSORI TEACHER): Following with neurology, reviewed note On cogentin [...] a walker. - PT/OT recommends SNF. -Plan [facility] on 11/26 ? Assessment & Plan (11/24/2021 2:07 PM CDT): Deconditioning 2/2 prolonged hospitalization. Daughter reports that prior to her illness, she was independent with a walker. - PT/OT recommends SNF. -Plan [facility] on 11/25. Assessment & Plan (11/23/2021 12:24 [...] care Assessment & Plan (08/14/2022 10:47 AM PRIMARY MONTESSORI TEACHER): Following with podiatry Assessment & Plan (04/02/2022 [...] - renal consulted regarding volume management, possible fci dialysis planning, expedite OP f/u. Serologies and urine studies ordered. ED neg, compliments neg, cryoglobulin pending, ANCA pending, HIV neg. Continued -Added metolazone 2.5mg/daily per renal 09/13- with improving swelling, Cr bump to 2.33 so held further -Transitioned to PO agents prior to DC (09/17) with ongoing clinical improvement. Goal weight 155lbs -Home with family at [place], electric motor control assembler consulted to review salt restrictions. -outpatient BMP, [...] - renal consulted regarding volume management, possible fci dialysis planning, expedite OP f/u. Serologies and urine studies ordered. ED neg, compliments neg, cryoglobulin pending, ANCA pending, HIV neg. Continued -Added metolazone 2.5mg/daily per renal 09/13- with improving swelling, Cr bump to 2.33 so held further -Anticipate likely transition to PO agents prior to DC (?09/17) with ongoing clinical improvement. Goal weight 155lbs -Home with family at [place], electric motor control assembler consulted to review salt restrictions. Assessment & [...] Goal weight 145-150lbs -Home with family at [place], electric motor control assembler consulted to review salt restrictions. Assessment & [...] - renal consulted regarding volume management, possible fci dialysis planning, expedite OP f/u. Serologies and [...] - renal consulted regarding volume management, possible fci dialysis planning, expedite OP f/u. Assessment & [...] net neg 1/2-1L/day. -consider renal consult regarding fci dialysis planning. Assessment & Plan (09/06/2021 10:28 [...] 08/19/2021 Assessment & Plan (07/14/2024 8:53 AM PRIMARY MONTESSORI TEACHER): Following with neurology Assessment & Plan (01/05/2024 10:40 PM CDT): Follows with neurology. -continue risperidone 2mg QHS -continue benztropine 2mg daily Assessment & Plan (11/10/2023 4:37 PM CDT): Following with neurology Assessment & Plan (07/24/2023 1:50 PM PRIMARY MONTESSORI TEACHER): Following with neurology Assessment & Plan (01/23/2023 9:18 AM CDT): Following with neurology Assessment & Plan (10/10/2022 10:37 AM CDT): Following with neurology, ordered MRI, # given to son to schedule Assessment & Plan (06/09/2022 3:37 PM PRIMARY MONTESSORI TEACHER): Needs to reschedule with neurology [facility], but [facility] for [facility] for schizoaffective disorder Assessment & Plan [...] needed Assessment & Plan (06/09/2022 3:37 PM PRIMARY MONTESSORI TEACHER): Reviewed PM & PHQ Screening PHQ-2 Total [...] type Assessment & Plan (08/18/2024 8:44 AM PRIMARY MONTESSORI TEACHER): Chronic, stable. Does not report any stephanie [...] discussed. Assessment & Plan (07/14/2024 8:54 AM PRIMARY MONTESSORI TEACHER): Following with psychiatry, recommend reaching out to [...] psychiatry Assessment & Plan (07/24/2023 1:50 PM PRIMARY MONTESSORI TEACHER): Following with psychiatry Assessment & Plan (01/23/2023 [...] discussed. Assessment & Plan (08/09/2021 5:42 AM PRIMARY MONTESSORI TEACHER): Following with psychiatry Assessment & Plan (08/07/2021 3:28 PM PRIMARY MONTESSORI TEACHER): Chronic condition, switch to Haldol and has had multiple different problems including acute kidney failure in infectious process. [facility] Confounded by delirium. Currently experiencing delirium will discontinue Haldol and return to Risperdal as previously taking. Risperdal was discontinued due to poorly-controlled diabetes. Monitor in 1 to 2 weeks. Assessment & Plan (07/03/2021 7:24 AM PRIMARY MONTESSORI TEACHER): Following with psychiatry D/c risperidone, started on haldol Assessment & Plan (07/01/2021 9:16 PM PRIMARY MONTESSORI TEACHER): Chronic, stable. +persistent auditory hallucinations Discontinue Risperdal [...] Reviewed all of those notes-primary care doctor, family nurse practitioner, topstitcher zigzag. The patient previously lived on her own and was observed to be hoarding. See additional problems-dementia. Evaluate again in 1 month after starting Risperdal. Iron deficiency anemia 04/02/2020 Assessment & Plan (05/06/2024 7:51 AM PRIMARY MONTESSORI TEACHER): Recommend discussing IV iron with nephrology Assessment & Plan (10/02/2020 4:35 PM CDT): Continue iron Assessment & Plan (05/28/2020 1:51 PM PRIMARY MONTESSORI TEACHER): Iron levels recently normalized, but still anemic, repeat today Assessment & Plan (04/16/2020 11:45 AM CDT): Recent iron within normal limits, H/H improving, continue supplementation until normalized Gastroesophageal reflux disease without esophagi tis 04/02/2020 Assessment & Plan (07/14/2024 8:56 AM PRIMARY MONTESSORI TEACHER): Restart protonix Upcoming EGD Assessment & Plan (01/05/2024 10:40 PM CDT): -continue famotidine Assessment & Plan (10/02/2020 4:35 PM CDT): Continue omeprazole Assessment & Plan (07/24/2020 2:06 PM PRIMARY MONTESSORI TEACHER): Recurrent symptoms off omeprazole, restart Assessment & Plan (05/28/2020 1:51 PM PRIMARY MONTESSORI TEACHER): Iron levels recently normalized, but still anemic, repeat today Assessment & Plan (04/02/2020 1:26 PM CDT): Start PPI History of amputation of toe 01/19/2020 Assessment & Plan (01/08/2021 3:50 PM CDT): Stable Assessment & Plan (10/02/2020 4:35 PM CDT): Stable Assessment & Plan (04/30/2020 1:00 PM PRIMARY MONTESSORI TEACHER): Stable Assessment & Plan (02/14/2020 5:15 PM CDT): Healing well Following with surgeon/wound clinic Assessment & Plan (01/19/2020 5:17 PM CDT): Has home health Following with vascular Hypertension associated with diabetes 12/13/2019 Assessment & Plan (07/14/2024 2:32 PM PRIMARY MONTESSORI TEACHER): Continue carvedilol, hydralazine Assessment & Plan (07/14/2024 8:51 AM PRIMARY MONTESSORI TEACHER): BP controlled today off medication Daughter reports nephrology said could restart medication, is planning to restart coreg first and monitor blood pressure prior to restarting nifedipine/hydralazine Assessment & Plan (05/06/2024 7:48 AM PRIMARY MONTESSORI TEACHER): BP controlled Continue nifedipine, hold prior to [...] x1 with HD. Most recent admission at [facility] with initiation of hydralazine and nifedipine [...] amlodipine Assessment & Plan (08/03/2023 4:02 PM PRIMARY MONTESSORI TEACHER): BP uncontrolled Start 5mg amlodipine Assessment & Plan (07/24/2023 1:49 PM PRIMARY MONTESSORI TEACHER): Blood pressure borderline today off medications Assessment & Plan (01/23/2023 9:18 AM CDT): Blood pressure borderline low today, asymptomatic Checking labs Advised to decrease amlodipine to 5mg and monitor blood pressure Assessment & Plan (10/10/2022 10:50 AM CDT): Continue coreg 6.25mg twice a day & 40mg valsartan Assessment & Plan (08/14/2022 10:43 AM PRIMARY MONTESSORI TEACHER): Blood pressure at goal, continue coreg 6.25mg twice a day Assessment & Plan (06/09/2022 3:32 PM PRIMARY MONTESSORI TEACHER): Blood pressure at goal, continue coreg 3.125mg [...] day Assessment & Plan (08/05/2021 10:35 AM PRIMARY MONTESSORI TEACHER): Blood pressure at goal Increase amlodipine to 10mg & d/c hydralazine per cardiology Assessment & Plan (05/28/2021 4:59 PM PRIMARY MONTESSORI TEACHER): Blood pressure above goal, but previously within [...] lisinopril Assessment & Plan (08/28/2020 12:12 PM PRIMARY MONTESSORI TEACHER): Blood pressure at goal Continue lisinopril Assessment & Plan (07/24/2020 2:05 PM PRIMARY MONTESSORI TEACHER): Blood pressure at goal Continue lisinopril Assessment & Plan (05/28/2020 1:50 PM PRIMARY MONTESSORI TEACHER): BP borderline Continue 10mg lisinopril Continue to monitor Assessment & Plan (04/30/2020 12:32 PM PRIMARY MONTESSORI TEACHER): BP borderline Continue 10mg lisinopril Continue to [...] 08/30/2019 Assessment & Plan (07/14/2024 2:31 PM PRIMARY MONTESSORI TEACHER): Controlled. Continue as per Endocrine and PCP Assessment & Plan (07/14/2024 8:50 AM PRIMARY MONTESSORI TEACHER): Following with endocrine, reviewed note Holding insulin [...] +SSI Assessment & Plan (07/24/2023 1:49 PM PRIMARY MONTESSORI TEACHER): Lab Results Component Value Date HGBA1C 8.1 [...] trulicity Assessment & Plan (08/14/2022 10:42 AM PRIMARY MONTESSORI TEACHER): Following with endocrine Continue lantus, 12 units humalog TIDAC & 1.5mg trulicity Assessment & Plan (06/09/2022 3:32 PM PRIMARY MONTESSORI TEACHER): Following with endocrine Home blood sugar at [...] as she had discussed this with outpatient gravel truck driver - repeat A1c - resume home statin, not currently on feliciano due to kidney function Assessment & Plan (08/05/2021 10:35 AM PRIMARY MONTESSORI TEACHER): Continue 15 units lantus twice a day Assessment & Plan (07/03/2021 7:24 AM PRIMARY MONTESSORI TEACHER): Fasting blood sugar significantly improved Risperidone changed Continue current meds Continue to monitor Assessment & Plan (06/18/2021 11:22 AM PRIMARY MONTESSORI TEACHER): Increase lantus to 60 units nightly, if blood sugar still above goal after 1 week split into 33 units twice a day Follow up with blood sugar via portal in 2 weeks Continue jardiance 25mg Continue trulicity 4.5mg weekly Assessment & Plan (05/28/2021 4:58 PM PRIMARY MONTESSORI TEACHER): Increase lantus to 55 units nightly Continue [...] weekly Assessment & Plan (08/28/2020 1:00 PM PRIMARY MONTESSORI TEACHER): DM Care Plan: Meds: Lantus - continue [...] recheck Assessment & Plan (07/24/2020 2:05 PM PRIMARY MONTESSORI TEACHER): Formulary change 2/2 insurance, switched to trulicity. Will increase to 1.5mg Assessment & Plan (05/28/2020 1:50 PM PRIMARY MONTESSORI TEACHER): Check a1c Sixto isn't checking blood sugar regularly, but when she is she has several >200 so I lean towards increasing if a1c>7 Assessment & Plan (04/30/2020 12:31 PM PRIMARY MONTESSORI TEACHER): Blood sugar improved on 40 units basaglar [...] doctor or pharmacy Often 01/20/2024 [facility] Utilities Answer Date Recorded In the past 12 months has e [email or web address] or water [employer] threatened to shut off services in your [...] How often do you attend chur or pentecostalism services? More than 4 times [...] in a usp (including now)? No 10/30/2023 PHQ-9 Answer Date [...] time in the past 12 m [facility], were you homeless or living in a usp (including now)? No 04/20/2024 Personal Safety Answer Date Recorded Have you ever been in or are you currently in a harmful physical or emotional relationship or is someone making you feel afraid or unsafe? Denies 09/13/2024 Comments No Sex and Gender Information Value Date Recorded Sex Assigned at Not on file Legal Sex Female 9:03 AM PRIMARY MONTESSORI TEACHER Gender Identity Female 02/08/2020 6:39 PM [...] 199 mg/dL Glucose comment 1 RN/MD Notified [facility] Blood 09/13/2024 9:47 AM CDT 09/13/2024 9:47 AM CDT us Jaya Grier MD LAB POCT ORDERABLES - DEVICE Fin al Result [address] Department [place] [address] * Surgical pathology (09/13/2024 9:28 AM CDT) Tissue specimen (specimen) (Esophageal biopsy) 09/13/2024 9:28 AM CDT Comment:Cold bx Narrative PATHOLOGY [facility] - 09/14/2024 1:55 PM CDT [facility] Department of Pathology [address] [place] [id number] Note to Patients: This report may contain [...] : 1950 (Age: 73) Gender: F Address: [address] [place] [address] Hospital #: [id number] Service: Gastro Location: Patient Type: [facility] Taken: 09/13/2024 Received: 09/13/2024 Accessioned: 09/13/2024 [...] Jar 0. jjb/09/13/2024 13:20 CAMILA Johnson, PA ([facility] Microscopic slide review and interpretation for this case was performed at [facility], Department of Surgical Pathology, [address] [facility] [place], [place] [id number], [place] [address] CLIA # [id number] us Jaya Grier MD LAB PATHOLOGY ORDERABLES Final R esult PATHOLOGY [facility] * EGD (09/13/2024 9:17 AM CDT) Anatomical Region Laterality Modality Other Narrative Procedure Note Jaya Grier MD - 09/13/2024 9:17 AM CDT [facility] GI ENDOSCOPY Patient Name: Sixto Chakraborty Procedure Date: 09/13/2024 9:17 AM Date of : 1950 Admit Type: Outpatient Age: 73 Gender: Female Attending MD: Jaya Grier M.D. Room: [facility] ENDOSCOPY ROOM 03 Note Status: Finalized Procedure: [...] On: 09/13/2024 9:17 AM Recognized by the [employer] for promoting quality in endoscopy us Jaya Grier MD ENDOSCOPY PROCEDURES Final Resul t * (ABNORMAL) POC Blood Gas and Chemistries, Venous - (09/13/2024 8:54 AM CDT) pH,chris POC 7.34 7.32 - 7.43 pCO2, chris POC 51(H) 40 - 50 mmHg [facility] pO2,chris POC 22 mmHg [facility] Comment: Interpretive Data No reference range established. Current interpretive data was last revised 2020. HCO3, chris (Calc) POC 27 20 - 30 mmol/L [facility] Base excess, chris POC 1 mmol/L [facility] Comment: Interpretive Data No reference range established. Current interpretive data was last revised 2020. Hemoglobin, chris POC 10.9(L) 11.9 - 15.5 g/dL [facility] Hematocrit, chris POC 32.0(L) 35.6 - 45.5 % [facility] Sodium, chris POC 141 135 - 145 mmol/L [facility] Potassium, chris POC 4.4 3.3 - 4.9 mmol/L [facility] Comment: Interpretive Data This method is not able to assess for hemolysis, which may falsely increase potassium concentrations. If further testing is needed to evaluate this result, consider in-laboratory plasma potassium. Current Interpretive Data was last revised on 2022. Glucose, chris POC 170 70 - 199 mg/dL [facility] Ionized Calcium, chris POC 4.90 4.50 - 5.10 mg/dL [facility] Blood 09/13/2024 8:54 AM CDT 09/13/2024 8:54 AM CDT us Jaya Grier MD LAB POCT ORDERABLES - DEVICE Fin al Result [facility] [address] [facility] [place] [address] * [place] INJECTION SINGLE/BUSINESS ANALYTICS ANALYST TRIGGER POINT 1/2 MUSCLES (09/08/2024 9:00 AM [...] well with no immediate complications Brook Muhammad STEREO EQUIPMENT INSTALLER IN CLINIC/BEDSIDE ORDERABLE S Final Result * CT Head WO Contrast (09/07/2024) Anatomical Region Laterality Modality Head and Neck N/A Computed Tomogra phy Historical Provider IMG CT PROCEDURES Final R esult * POCT hemoglobin A1c (08/22/2024 8:55 AM PRIMARY MONTESSORI TEACHER) [facility] Hemoglobin A1C, POC 7.7 4.0 - 5.6 % Blood 08/22/2024 8:55 AM PRIMARY MONTESSORI TEACHER Smith Gibbs MD POINT OF CARE TEST ORDERABLE S Final Result * Respiratory pathogen panel Nasopharyngeal (07/31/2024 1:02 PM PRIMARY MONTESSORI TEACHER) [facility] Influenza A RNA Not Detected Not Detected [facility] Influenza B RNA Not Detected Not Detected [facility] RSV RNA Not Detected Not Detected [facility] COVID-19 RNA Not Detected Not Detected CERNER [...] 2 RNA Not Detected Not Detected [facility] Parainfluenza 3 RNA Not Detected Not Detected [facility] Parainfluenza 4 RNA Not Detected Not Detected [facility] B. pertussis DNA Not Detected Not Detected [facility] B. parapertussis DNA Not Detected Not Detected [facility] C. pneumoniae DNA Not Detected Not Detected [facility] M. pneumoniae DNA Not Detected Not Detected [facility] Comment: Interpretive Data The [employer] FilmArray Respiratory Panel (RP2.1) assay is a [...] assay has FDA clearance for testing of STEREO EQUIPMENT INSTALLER swabs. The performance characteristics of this assay have been determined by [facility]. Current interpretive data was last revised on 2021. Nasopharyngeal 07/31/2024 1: 02 PM PRIMARY MONTESSORI TEACHER 07/31/2024 1:05 PM PRIMARY MONTESSORI TEACHER Narrative [facility]IL[facility] - 07/31/2024 2:05 PM PRIMARY MONTESSORI TEACHER Is the Patient experiencing symptoms consistent with COVID?->Yes Surveillance testing for transplant patient?->No Lucy Lucero MD LAB MICROBIOLOGY - GENE RAL ORDERABLES Final Result [facility] [address] Department [place] [address] * Diabetic Eye Exam (07/27/2024 12:37 PM PRIMARY MONTESSORI TEACHER) Historical Provider HEALTH MAINTENANCE Final Result * HM DIABETES EYE EXAM (07/22/2024) Historical Provider MD HEALTH MAINTENANCE Final Result * XR Chest 1 View (07/15/2024 1:11 PM PRIMARY MONTESSORI TEACHER) Anatomical Region Laterality Modality Body, Chest N/A Computed Radiogr aphy 07/15/2024 1:35 PM PRIMARY MONTESSORI TEACHER Narrative 07/15/2024 1:36 PM PRIMARY MONTESSORI TEACHER EXAM DESCRIPTION: XR CHEST 1 VIEW REASON [...] Yosef Lindo D.O. PS T: Report ID: [id number] Reading Location: [id number] Procedure Note [place] Yosef Jacky, DO - [...] Yosef Lindo D.O. PS T: Report ID: [id number] Reading Location: [id number] Edgardo Kauffman MD IMG XR PROCEDURES Final Re sult * RPL DRE CVC W/O PUMP [id number] (07/15/2024 12:40 PM PRIMARY MONTESSORI TEACHER) Anatomical Region Laterality Modality X-Ray Angiograph y Narrative 07/15/2024 12:45 PM PRIMARY MONTESSORI TEACHER Please see OpNote for result. Edgardo Kauffman MD CV CARDIAC CATH PROCEDURES Final Result * XR Chest 1 View (07/14/2024 1:16 PM PRIMARY MONTESSORI TEACHER) Anatomical Region Laterality Modality Body, Chest N/A Computed Radiogr aphy 07/14/2024 1:20 PM PRIMARY MONTESSORI TEACHER Narrative 07/14/2024 1:22 PM PRIMARY MONTESSORI TEACHER EXAM DESCRIPTION: XR CHEST 1 VIEW REASON [...] signed by Salvador TOLENTINO T: Report ID: [id number] Reading Location: [id number] Procedure Note Salvador Villa MD - 07/14/2024 [...] signed by Salvador TOLENTINO T: Report ID: [id number] Reading Location: [id number] Edgardo Kauffman MD IMG XR PROCEDURES Final Re sult * (ABNORMAL) eGFR (07/14/2024 12:34 PM PRIMARY MONTESSORI TEACHER) [facility] eGFR 7(L) >=60 mL/min/1. 73 m2 Comment: [...] reviewed 2021. Blood 07/14/2024 12:3 4 PM PRIMARY MONTESSORI TEACHER 07/14/2024 12:41 PM PRIMARY MONTESSORI TEACHER us Edgardo Kauffman MD LAB BLOOD ORDERABLES Final Result NILSA [address] [facility] Department [place] [address] * (ABNORMAL) Differential, auto (07/14/2024 12:34 PM PRIMARY MONTESSORI TEACHER) [facility] Neutrophil abs 7.8(H) 1.5 - 6.5 K/cumm Imm gran abs 0.0 0.0 - 0.1 K/cumm [facility] Lymphocyte abs 1.5 0.8 - 3.3 K/cumm [facility] Monocyte abs 0.5 0.2 - 0.8 K/cumm [facility] Eosinophil abs 0.2 0.0 - 0.5 K/cumm [facility] Basophil abs 0.0 0.0 - 0.1 K/cumm [facility] Neutrophil pct 78.1 % [facility] Comment: Interpretive Data Percent cell count reference ranges are not reported, since discordance with absolute values may lead to misinterpretation of CBC data. Current Interpretive Data was last revised on 2017. Imm gran pct 0.4 % [facility] Comment: Interpretive Data Percent cell count reference ranges are not reported, since discordance with absolute values may lead to misinterpretation of CBC data. Current Interpretive Data was last revised on 2017. Lymphocyte pct 14.8 % [facility] Comment: Interpretive Data Percent cell count reference ranges are not reported, since discordance with absolute values may lead to misinterpretation of CBC data. Current Interpretive Data was last revised on 2017. Monocyte pct 4.7 % [facility] Comment: Interpretive Data Percent cell count reference ranges are not reported, since discordance with absolute values may lead to misinterpretation of CBC data. Current Interpretive Data was last revised on 2017. Eosinophil pct 1.6 % [facility] Comment: Interpretive Data Percent cell count reference ranges are not reported, since discordance with absolute values may lead to misinterpretation of CBC data. Current Interpretive Data was last revised on 2017. Basophil pct 0.4 % [facility] Comment: Interpretive Data Percent cell count reference ranges are not reported, since discordance with absolute values may lead to misinterpretation of CBC data. Current Interpretive Data was last revised on 2017. Blood 07/14/2024 12:3 4 PM PRIMARY MONTESSORI TEACHER 07/14/2024 12:41 PM PRIMARY MONTESSORI TEACHER us Edgardo Kauffman MD LAB BLOOD ORDERABLES Final Result [facility] [address] [facility] Department [place] [address] * (ABNORMAL) CBC with auto differential (07/14/2024 12:34 PM PRIMARY MONTESSORI TEACHER) WBC 9.9 3.8 - 9.9 K/cumm Hgb 11.6(L) 11.9 - 15.5 g/dL [facility] Hct 35.3(L) 35.6 - 45.5 % [facility] Plt 241 150 - 400 K/cumm [facility] MPV 11.0 9.1 - 12.3 fL [facility] RBC 3.63(L) 3.90 - 5.20 M/cumm [facility] MCV 97.2(H) 81.3 - 96.4 fL [facility] MCH 32.0 27.1 - 33.3 pg [facility] MCHC 32.9 32.3 - 35.7 g/dL [facility] RDW CV 15.4(H) 11.1 - 14.9 % [facility] RDW SD 54.8(H) 35.7 - 48.1 fL [facility] NRBC abs 0.00 0.00 - 0.01 K/cumm [facility] Blood 07/14/2024 12:3 4 PM PRIMARY MONTESSORI TEACHER 07/14/2024 12:41 PM PRIMARY MONTESSORI TEACHER us Edgardo Kauffman MD LAB BLOOD ORDERABLES Final Result [facility] [address] [facility] Department [place] [address] * (ABNORMAL) Basic metabolic panel (07/14/2024 12:34 PM PRIMARY MONTESSORI TEACHER) Sodium 138 135 - 145 mmol/L Potassium, pl 4.1 3.3 - 4.9 mmol/L [facility] Comment:Hemolyzed; Potassium value may be falsely elevated by as much as 1.0 mmol/L. Suggest redraw and reanalysis. Chloride 100 97 - 110 mmol/L [facility] CO2 25 22 - 32 mmol/L [facility] Anion gap 13 2 - 15 mmol/L [facility] BUN 51(H) 6 - 25 mg/dL [facility] Creatinine 6.22(H) 0.60 - 1.10 mg/dL [facility] Glucose 155 70 - 199 mg/dL [facility] Comment: Interpretive Data Fasting [...] mg/dL NILSA Blood 07/14/2024 12:3 4 PM PRIMARY MONTESSORI TEACHER 07/14/2024 12:41 PM PRIMARY MONTESSORI TEACHER us Edgardo Kauffman MD LAB BLOOD ORDERABLES Final Result NILSA [address] [place] [address] * Surgical pathology (07/13/2024 11:10 AM PRIMARY MONTESSORI TEACHER) Tissue specimen (specimen) (Duodenum, Biopsy) 07/13/2024 11:10 AM PRIMARY MONTESSORI TEACHER Tissue specimen (specimen) (Gastric/Stomach biopsy) 07/13/2024 11:11 AM PRIMARY MONTESSORI TEACHER Tissue specimen (specimen) (Gastric/Stomach biopsy) 07/13/2024 11:11 AM PRIMARY MONTESSORI TEACHER Tissue specimen (specimen) (Esophageal biopsy) 07/13/2024 11:13 AM PRIMARY MONTESSORI TEACHER Narrative PATHOLOGY [facility] - 07/14/2024 1:59 PM PRIMARY MONTESSORI TEACHER [facility] Department of Pathology [address] [place] [id number] Note to Patients: This report may contain [...] : 1950 (Age: 73) Gender: F Address: [address] [place] [address] Hospital #: [id number] Service: Gastro Location: Patient Type: [facility] Taken: 07/13/2024 Received: 07/13/2024 Accessioned: 07/13/2024 [...] Jar 0. jjb/07/13/2024 13:31 CAMILA Johnson, PA ([facility] [place]) Microscopic slide review and interpretation for this case was performed at [facility], Department of Surgical Pathology, [address] [facility] [place], [place] [id number], [place] [address] [facility] # [id number] us Jaya Grier MD LAB PATHOLOGY ORDERABLES Final R esult PATHOLOGY [facility] * EGD (07/13/2024 10:59 AM PRIMARY MONTESSORI TEACHER) Anatomical Region Laterality Modality Other Narrative Procedure Note Jaya Grier MD - 07/13/2024 10:59 AM CST [facility] GI ENDOSCOPY Patient Name: Sixto Chakraborty Procedure Date: 07/13/2024 10:59 AM Date of : 1950 Admit Type: Outpatient Age: 73 Gender: Female Attending MD: Jaya Grier M.D. Room: [facility] ENDOSCOPY ROOM 06 Note Status: Finalized Procedure: [...] On: 07/13/2024 10:59 AM Recognized by the [employer] for promoting quality in endoscopy Jaya Grier MD ENDOSCOPY PROCEDURES Final Resul t * (ABNORMAL) POC Blood Gas and Chemistries, Venous - (07/13/2024 10:12 AM PRIMARY MONTESSORI TEACHER) pH,chris POC 7.40 7.32 - 7.43 pCO2, chris POC 49 40 - 50 mmHg [facility] pO2,chris POC 36 mmHg [facility] Comment: Interpretive Data No reference range established. Current interpretive data was last revised 2020. HCO3, chris (Calc) POC 30 20 - 30 mmol/L [facility] Base excess, chris POC 4 mmol/L [facility] Comment: Interpretive Data No reference range established. Current interpretive data was last revised 2020. Hemoglobin, chris POC 13.9 11.9 - 15.5 g/dL [facility] Hematocrit, chris POC 41.0 35.6 - 45.5 % [facility] Sodium, chris POC 134(L) 135 - 145 mmol/L [facility] Potassium, chris POC 4.6 3.3 - 4.9 mmol/L [facility] Comment: Interpretive Data This method is not able to assess for hemolysis, which may falsely increase potassium concentrations. If further testing is needed to evaluate this result, consider in-laboratory plasma potassium. Current Interpretive Data was last revised on 2022. Glucose, crhis POC 145 70 - 199 mg/dL [facility] Ionized Calcium, chris POC 4.70 4.50 - 5.10 mg/dL [facility] Blood 07/13/2024 10:1 2 AM PRIMARY MONTESSORI TEACHER 07/13/2024 10:12 AM PRIMARY MONTESSORI TEACHER Jaya Grier MD LAB POCT ORDERABLES - DEVICE Fin al Result [facility] [address] [facility] Department [place] [address] * (ABNORMAL) Troponin T high-sensitivity 2-hour (07/12/2024 1:59 PM PRIMARY MONTESSORI TEACHER) Trop T hs 63(H) <=14 ng/L Comment: Interpretive Data For further hscTnT resources including the diagnostic algorithm and an aid in interpretation, copy and paste this link: https://nrl.testcatalog.org/show/hsTrop Current Interpretive Data last revised 2020. Testing performed by: [address] [address] Trop T hs delta -5 ng/L NILSA Comment:Testing performed by : [address] [address] Trop T hs interp Equivocal NILSA Comment:Testing performed by : [address] [address] Blood 07/12/2024 1:59 PM PRIMARY MONTESSORI TEACHER 07/12/2024 2:20 PM PRIMARY MONTESSORI TEACHER us Donna CUEVA LAB BLOOD ORDERABLES Final Re sult NILSA [address] [facility] Department [place] [address] * (ABNORMAL) Urinalysis reflex to microscopic and culture Urine (07/12/2024 1:05 PM PRIMARY MONTESSORI TEACHER) Color, ur Mikayla Yellow Comment:Testing performed by : [address] [address] Clarity, ur Turbid(A) Clear NILSA Comment:Testing performed by : [address] [address] Specific gravity, ur 1.006 1.003 - 1.030 NILSA Comment:Testing performed by : [address] [address] pH, urine 6.0 NILSA Comment: Interpretive Data U rine pH is affected by diet, medications, systemic acid-base disturbances, and renal tubular function. pH may affect urinary stone formation. For example, urine pH below 6.0 may help reduce the tendency for calcium phosphate stones and pH greater than 6.0 may reduce the tendency for uric acid stone formation. Source: [facility] Cognection Current Interpretive Data was last revised on 2017 Testing performed by: [address] [address] Protein, ur ql 2+(A) Negative NILSA Comment:Testing performed by : [address] [address] Glucose, ur ql 1+(A) Negative NILSA Comment:Testing performed by : [address] [address] Ketones, ur Negative Negative NILSA Comment:Testing performed by : [address] [address] Bilirubin, ur Negative Negative NILSA Comment:Testing performed by : [address], [place]., [address] Blood, ur 2+(A) Negative NILSA Comment:Testing performed by : [address] [address] Urobilinogen, ur <2.0 <2.0 mg/dL NILSA Comment:Testing performed by : [address] [address] Nitrite, ur Negative Negative NILSA Comment:Testing performed by : [address] [address] Leukocyte esterase, ur 4+(A) Negative NILSA Comment:Testing performed by : [address] [address] UA reflex comment Reflex to microscopic UA will be performed. NILSA Comment:Testing performed by : [address] [address] Urine 07/12/2024 1:05 PM PRIMARY MONTESSORI TEACHER 07/12/2024 1:09 PM PRIMARY MONTESSORI TEACHER us Donna CUEVA LAB MICROBIOLOGY - GENERAL OR DERABLES Final Result NILSA RODRIGES [address] [facility] Department [place] [address] * Drugs of Abuse Screen, Urine without Confirmation (07/12/2024 1:05 PM PRIMARY MONTESSORI TEACHER) [facility] Amphetamine, ur Not Detected CutOff 500ng/mL Comment: Interpretive Data - Amphetamines: Samples containing greater than 500 ng/mL d-methamphetamine or other cross-reacting amphetamine compounds are reported as positive. Amphetamine immunoassays are subject to significant false positive rates due to cross-reactivity of non-amphetamine drugs. Confirmatory testing required for definitive results. Current Interpretive Data was last reviewed 2023. Testing performed by: [address] [address] Barbiturates, ur Not Detected CutOff 200ng/mL [facility] Comment: Interpretive Data - Barbiturates: Samples containing greater than 200 ng/mL secobarbital or other cross-reacting barbiturate compounds are reported as positive. False positive and false negative results are possible. Confirmatory testing required for definitive results. Current Interpretive Data was last reviewed 2023. Testing performed by: [address] [address] Benzodiazepines, ur Not Detected CutOff 100ng/mL [facility] Comment: Interpretive Data - Benzodiazepines: Samples containing greater than 100 ng/mL nordiazepam or other cross-reacting compounds are reported as positive. False positive and false negative results are possible. Confirmatory testing required for definitive results. Current Interpretive Data was last reviewed 2023. Testing performed by: [address] [address] Cannabinoids, ur Not Detected CutOff 50 ng/mL [facility] Comment: Interpretive Data - Cannabinoids: Samples containing greater than 50 ng/mL delta-9 THC -COOH or other cross- reacting compounds are reported as positive. False positive and false negative results are possible. Confirmatory testing required for definitive results. Current Interpretive Data was last reviewed 2023. Testing performed by: [address] [address] Cocaine, ur Not Detected CutOff 150ng/mL [facility] Comment: Interpretive Data - Cocaine: Samples containing greater than 150 ng/mL benzoylecgonine or other cross- reacting compounds are reported as positive. False positive and false negative results are possible. Confirmatory testing required for definitive results. Current Interpretive Data was last reviewed 2023. Testing performed by: [address] [address] Fentanyl, Ur Not Detected Cutoff 1 ng/mL [facility] Comment: Interpretive Data - Fentanyl: Samples containing greater than 1 ng/mL fentanyl or other cross-reacting fentanyl compounds are reported as positive. False positive and false negative results are possible. Confirmatory testing required for definitive results. Current Interpretive Data was last reviewed 2023. Testing performed by: [address] [address] Methadone, ur Not Detected CutOff 300ng/mL [facility] Comment: Interpretive Data - Methadone: Samples containing greater than 300 ng/mL d,l-methadone or other cross-reacting compounds are reported as positive. False positive and false negative results are possible. Confirmatory testing required for definitive results. Current Interpretive Data was last reviewed 2023. Testing performed by: [address] [address] Opiates, ur Not Detected CutOff 300ng/mL [facility] Comment: Interpretive Data - Opiates: Samples containing greater than 300 ng/mL morphine or other cross-reacting compounds are reported as positive. False positive and false negative results are possible. Confirmatory testing required for definitive results. Current Interpretive Data was last reviewed 2023. Testing performed by: [address] [address] Oxycodone, ur Not Detected CutOff 100ng/mL [facility] Comment: Interpretive Data - Oxycodone: Samples containing greater than 100 ng/mL oxycodone or other cross-reacting compounds are reported as positive. False positive and false negative results are possible. Confirmatory testing required for definitive results. Current Interpretive Data was last reviewed 2023. Testing performed by: [address] [address] Phencyclidine, ur Not Detected CutOff 25 ng/mL [facility] Comment: Interpretive Data - Phencyclidine: Samples containing greater than 25 ng/mL phencyclidine or other cross-reacting compounds are reported as positive. False positive and false negative results are possible. Confirmatory testing required for definitive results. Current Interpretive Data was last reviewed 2023. Testing performed by: [address] [address] Urine Creatinine 74 mg/dL NILSA Comment: Interpretive Data Urine Creatinine: < 10 mg/dL is extremely dilute = or > 10 but < 20 mg/dL is dilute = or > 20 mg/dL is normal Current Interpretive Data was last revised on 2017. Testing performed by: [address] [address] Urine 07/12/2024 1:05 PM PRIMARY MONTESSORI TEACHER 07/12/2024 1:09 PM PRIMARY MONTESSORI TEACHER Narrative NILSA - 07/12/2024 1:31 PM PRIMARY MONTESSORI TEACHER Drug of Abuse screening is performed by immunoassay for medical purposes only. This is not to be used for Pain Management purposes. [facility] LAB URINE ORDERABLES Final Re sult NILSA [address] [facility] Department [place] [address] * (ABNORMAL) Urinalysis, microscopic only (07/12/2024 1:05 PM PRIMARY MONTESSORI TEACHER) WBC, ur >50(A) 0 - 5 /HPF Comment:Testing performed by : [address] [address] RBC, ur 11-20(A) 0 - 2 /HPF NILSA Comment:Testing performed by : [address] [address] Bacteria, ur 4+(A) NILSA Comment:Testing performed by : [address] [address] Culture Reflex Comment Reflex to urine culture will be performed. NILSA Comment:Testing performed by : [address] [address] Urine 07/12/2024 1:05 PM PRIMARY MONTESSORI TEACHER 07/12/2024 1:09 PM PRIMARY MONTESSORI TEACHER [employer] PA LAB URINE ORDERABLES Final Re sult Performing Organization Address [facility] Co de Phone Number NILSA [address] [place] [address] * (ABNORMAL) Urine culture Urine (07/12/2024 1:05 PM PRIMARY MONTESSORI TEACHER) Report Final Report: Greater than or equal to 100,000 colonies/mL of Escherichia coli (.) Comment:Testing performed by : [facility], [address] [place]., [address] Organism ESCHERICHIA COLI [facility] Urine 07/12/2024 1:05 PM PRIMARY MONTESSORI TEACHER 07/12/2024 3:03 PM PRIMARY MONTESSORI TEACHER Narrative [facility] - 07/14/2024 2:20 PM PRIMARY MONTESSORI TEACHER Urine culture reflexed based upon urinalysis results. Testing performed by [facility] Microbiology Laboratory ([phone]) Organism Antibiotic Method Susceptibility Escherichia coli Ampicillin [...] OR DERABLES Final Result Performing Organization Address [facility] Co de Phone Number CARLOS ENRIQUE[address] [place] [address] * (ABNORMAL) Troponin T high-sensitivity series (baseline, 2hr, 4hr, 6hr) (07/12/2024 11:53 AM PRIMARY MONTESSORI TEACHER) Trop T hs 68(H) <=14 ng/L Comment: REDRAW: HEMOLYZED SPECIMEN Interpretive Data For further hscTnT resources including the diagnostic algorithm and an aid in interpretation, copy and paste this link: https://nrl.testcatalog.org/show/hsTrop Current Interpretive Data last revised 2020. Testing performed by: [address] [address] Blood 07/12/2024 11:5 3 AM PRIMARY MONTESSORI TEACHER 07/12/2024 11:58 AM PRIMARY MONTESSORI TEACHER Donna CUEVA LAB BLOOD ORDERABLES Final Re sult NILSA [address] [facility] Department [place] [address] * Influenza A/B, RSV, and COVID-19 PCR Nasopharyngeal (07/12/2024 11:53 AM PRIMARY MONTESSORI TEACHER) COVID-19 RNA Negative Negative Comment:Testing performed by : [address] [address] Influenza A RNA Negative Negative NILSA Comment:Testing performed by : [address] [address] Influenza B RNA Negative Negative [facility] Comment:Testing performed by : [address] [address] [address] [facility] Comment: Interpretive data: Testing performed by [facility]. This test is performed using the [employer] Xpert Xpress CoV-2/Flu/RSV plus assay. This is a multiplex, real-time reverse transcriptase PCR assay intended for the qualitative detection of nucleic acid from SARS-CoV-2, influenza A, influenza B, and respiratory syncytial virus. This assay has been cleared by the [place] Food and Drug administration. The performance characteristics have been verified by the [facility]. Results must be considered in the clinical context, and a negative result does not rule out infection. Interpretive Data last revised 2023 Testing performed by: [address] [address] Nasopharyngeal 07/12/2024 11 :53 AM PRIMARY MONTESSORI TEACHER 07/12/2024 11:58 AM PRIMARY MONTESSORI TEACHER Narrative NILSA - 07/12/2024 12:38 PM PRIMARY MONTESSORI TEACHER Is the Patient experiencing symptoms consistent with COVID?->Unknown Donna CUEVA LAB MICROBIOLOGY - GENERAL OR DERABLES Final Result Performing Organization Address [facility] Co de Phone Number NILSA [address] [facility] [place] [address] * (ABNORMAL) eGFR (07/12/2024 11:53 AM PRIMARY MONTESSORI TEACHER) eGFR 10(L) >=60 mL/min/1. 73 m2 Comment: [...] was last reviewed 2021. Testing performed by: [address] [address] Blood 07/12/2024 11:5 3 AM PRIMARY MONTESSORI TEACHER 07/12/2024 11:58 AM PRIMARY MONTESSORI TEACHER Donna CUEVA LAB BLOOD ORDERABLES Final Re sult Performing Organization Address City/[facility]/ZIP Co de Phone Number NILSA [address] [facility] Department [place] [address] * (ABNORMAL) Differential, auto (07/12/2024 11:53 AM PRIMARY MONTESSORI TEACHER) Neutrophil abs 9.2(H) 1.5 - 6.5 K/cumm Comment:Testing performed by : [address] [address] Imm gran abs 0.1 0.0 - 0.1 K/cumm [facility] Comment:Testing performed by : [address] [address] Lymphocyte abs 1.5 0.8 - 3.3 K/cumm [facility] Comment:Testing performed by : [address] [address] Monocyte abs 0.5 0.2 - 0.8 K/cumm [facility] Comment:Testing performed by : [address] [address] Eosinophil abs 0.1 0.0 - 0.5 K/cumm [facility] Comment:Testing performed by : [address] [address] Basophil abs 0.0 0.0 - 0.1 K/cumm [facility] Comment:Testing performed by : [address] [address] Neutrophil pct 81.0 % [facility] Comment: Interpretive Data Percent cell count reference ranges are not reported, since discordance with absolute values may lead to misinterpretation of CBC data. Current Interpretive Data was last revised on 2017. Testing performed by: [address] [address] Imm gran pct 0.4 % [facility] Comment: Interpretive Data Percent cell count reference ranges are not reported, since discordance with absolute values may lead to misinterpretation of CBC data. Current Interpretive Data was last revised on 2017. Testing performed by: [address] [address] Lymphocyte pct 13.4 % [facility] Comment: Interpretive Data Percent cell count reference ranges are not reported, since discordance with absolute values may lead to misinterpretation of CBC data. Current Interpretive Data was last revised on 2017. Testing performed by: [address] [address] Monocyte pct 4.2 % [facility] Comment: Interpretive Data Percent cell count reference ranges are not reported, since discordance with absolute values may lead to misinterpretation of CBC data. Current Interpretive Data was last revised on 2017. Testing performed by: [address] [address] Eosinophil pct 0.6 % NILSA Comment: Interpretive Data Percent cell count reference ranges are not reported, since discordance with absolute values may lead to misinterpretation of CBC data. Current Interpretive Data was last revised on 2017. Testing performed by: [address] [address] Basophil pct 0.4 % NILSA Comment: Interpretive Data Percent cell count reference ranges are not reported, since discordance with absolute values may lead to misinterpretation of CBC data. Current Interpretive Data was last revised on 2017. Testing performed by: [address] [address] Blood 07/12/2024 11:5 3 AM PRIMARY MONTESSORI TEACHER 07/12/2024 11:58 AM PRIMARY MONTESSORI TEACHER Donna Zac PA LAB BLOOD ORDERABLES Final Re sult Performing Organization Address City/[facility] Co de Phone Number [address] [employer] [address] * Thyroid Function [place] (07/12/2024 11:53 AM PRIMARY MONTESSORI TEACHER) Pathologist [facility] TSH 1.22 0.30 - 4.20 mcIUnit/mL Comment:Testing performed by : [address] [address] Blood 07/12/2024 11:5 3 AM PRIMARY MONTESSORI TEACHER 07/12/2024 11:58 AM PRIMARY MONTESSORI TEACHER Rustoriao PA LAB BLOOD ORDERABLES Final Re sult Performing Organization Address City/[facility]/ZIP Co de Phone Number [address] [place] [address] * (ABNORMAL) CBC with auto differential (07/12/2024 11:53 AM PRIMARY MONTESSORI TEACHER) WBC 11.3(H) 3.8 - 9.9 K/cumm Comment:Testing performed by : [address] [address] Hgb 12.3 11.9 - 15.5 g/dL NILSA Comment:Testing performed by : [address] [address] Hct 37.2 35.6 - 45.5 % NILSA Comment:Testing performed by : [address] [address] Plt 230 150 - 400 K/cumm NILSA Comment:Testing performed by : [address] [address] MPV 10.7 9.1 - 12.3 fL NILSA Comment:Testing performed by : [address] [address] RBC 3.85(L) 3.90 - 5.20 M/cumm NILSA Comment:Testing performed by : [address] [address] MCV 96.6(H) 81.3 - 96.4 fL NILSA Comment:Testing performed by : [address] [address] MCH 31.9 27.1 - 33.3 pg NILSA Comment:Testing performed by : [address] [address] MCHC 33.1 32.3 - 35.7 g/dL NILSA Comment:Testing performed by : [address] [address] RDW CV 15.7(H) 11.1 - 14.9 % NILSA Comment:Testing performed by : [address] [address] RDW SD 55.5(H) 35.7 - 48.1 fL NILSA Comment:Testing performed by : [address] [address] NRBC abs 0.00 0.00 - 0.01 K/cumm NILSA Comment:Testing performed by : [address] [address] Blood 07/12/2024 11:5 3 AM PRIMARY MONTESSORI TEACHER 07/12/2024 11:58 AM PRIMARY MONTESSORI TEACHER us Donna CUEVA LAB BLOOD ORDERABLES Final Re sult NILSA RODRIGES [address] [facility] Department [place] [address] * (ABNORMAL) Comprehensive metabolic panel (07/12/2024 11:53 AM PRIMARY MONTESSORI TEACHER) Sodium 134(L) 135 - 145 mmol/L Comment:Testing performed by : [address] [address] Potassium, pl 4.6 3.3 - 4.9 mmol/L NILSA Comment: HEMOLYZED: Hemolysis interferes with the above test. Testing performed by: [address] [address] Chloride 93(L) 97 - 110 mmol/L NILSA Comment:Testing performed by : [address] [address] CO2 28 22 - 32 mmol/L NILSA Comment:Testing performed by : [address] [address] Anion gap 13 2 - 15 mmol/L NILSA Comment:Testing performed by : [address] [address] BUN 33(H) 6 - 25 mg/dL NILSA Comment:Testing performed by : [address] [address] Creatinine 4.60(H) 0.60 - 1.10 mg/dL NILSA Comment:Testing performed by : [address] [address] Glucose 177 70 - 199 mg/dL NILSA [...] last revised 2022. Testing performed by: [address] [address] Calcium 9.5 8.5 - 10.3 mg/dL NILSA Comment:Testing performed by : [address] [address] Bilirubin, total 0.4 0.1 - 1.2 mg/dL [facility] Comment:Testing performed by : [address] [address] Protein, pl 8.2 6.5 - 8.5 g/dL [facility] Comment:Testing performed by : [address] [address] Albumin 3.9 3.5 - 5.0 g/dL [facility] Comment:Testing performed by : [address] [address] Alk phos 95 40 - 130 Units/L [facility] Comment:Testing performed by : [address] [address] ALT 24 7 - 45 Units/L [facility] Comment: HEMOLYZED: Hemolysis interferes with the above test. Testing performed by: [address] [address] AST 26 10 - 45 Units/L [facility] Comment: HEMOLYZED: Hemolysis interferes with the above test. Testing performed by: [address] [address] Blood 07/12/2024 11:5 3 AM PRIMARY MONTESSORI TEACHER 07/12/2024 11:58 AM PRIMARY MONTESSORI TEACHER us Donna CUEVA LAB BLOOD ORDERABLES Final Re sult NILSA RODRIGES [address] [facility] Department [place] [address] * ECG 12 lead (07/12/2024 11:48 AM PRIMARY MONTESSORI TEACHER) Ventricular Rate EKG/Min 77 BPM [facility] Atrial Rate 77 BPM [facility] OK-Interval (MSEC) 154 ms [facility] QRS-Interval (MSEC) 66 ms [facility] QT-Interval (MSEC) 412 ms [facility] QTc 466 ms [facility] P [place] 72 degrees [facility] R [place] 6 degrees [facility] T [place] 62 degrees [facility] Diagnosis Normal sinus rhythm Normal ECG When compared with ECG of 21-APR-2024 10:35, No significant change was found Confirmed by DIAMOND GUTIERREZ M.D. ([id number]) on 07/13/2024 9:26:23 PM [facility] 07/12/2024 11:4 8 AM PRIMARY MONTESSORI TEACHER 07/13/2024 9:26 PM PRIMARY MONTESSORI TEACHER us Donna CUEVA ECG ORDERABLES Final Result [facility] * CT Cervical Spine WO Contrast (07/12/2024 10:38 AM PRIMARY MONTESSORI TEACHER) Anatomical Region Laterality Modality Spine N/A Computed Tomogra phy 07/12/2024 11:0 8 AM PRIMARY MONTESSORI TEACHER Narrative 07/12/2024 11:13 AM PRIMARY MONTESSORI TEACHER EXAM DESCRIPTION: CT CERVICAL SPINE WO CONTRAST [...] Wally Hernandez M.D. RB: AMADA Report ID: [id number] Reading Location: [id number] Procedure Note Wally Hernandez MD - 07/12/2024 [...] Wally Hernandez M.D. RB: AMADA Report ID: [id number] Reading Location: [id number] Donna CUEVA IMG CT PROCEDURES Final Resul t * CT Facial Bones WO Contrast (07/12/2024 10:38 AM PRIMARY MONTESSORI TEACHER) Anatomical Region Laterality Modality Head and Neck N/A Computed Tomogra phy 07/12/2024 11:0 3 AM PRIMARY MONTESSORI TEACHER Narrative 07/12/2024 11:08 AM PRIMARY MONTESSORI TEACHER EXAM DESCRIPTION: CT FACIAL BONES WO CONTRAST [...] Wally Hernandez M.D. RB: AMADA Report ID: [id number] Reading Location: [id number] Procedure Note Wally Hernandez MD - 07/12/2024 [...] Wally Hernandez M.D. RB: AMADA Report ID: [id number] Reading Location: [id number] Donna [address] PROCEDURES Final Resul t * CT Head WO Contrast (07/12/2024 10:38 AM PRIMARY MONTESSORI TEACHER) Anatomical Region Laterality Modality Head and Neck N/A Computed Tomogra phy 07/12/2024 10:5 9 AM PRIMARY MONTESSORI TEACHER Narrative 07/12/2024 11:03 AM PRIMARY MONTESSORI TEACHER EXAM DESCRIPTION: CT HEAD WO CONTRAST REASON [...] Wally Hernandez M.D. RB: AMADA Report ID: [id number] Reading Location: [id number] Procedure Note Wally Hernandez MD - 07/12/2024 [...] Wally Hernandez M.D. RB: RB Report ID: [id number] Reading Location: [place] [address] PROCEDURES Final Resul t * XR Shoulder Right 2 or More Views (07/12/2024 10:08 AM PRIMARY MONTESSORI TEACHER) Anatomical Region Laterality Modality Upper Extremities, Shoulder Right Comp uted Radiography 07/12/2024 10:1 4 AM PRIMARY MONTESSORI TEACHER Narrative 07/12/2024 10:15 AM PRIMARY MONTESSORI TEACHER EXAM DESCRIPTION: XR SHOULDER RIGHT 2 OR [...] Wally Hernandez M.D. RB: RB Report ID: [id number] Reading Location: [id number] Procedure Note Wally Hernandez MD - 07/12/2024 [...] Wally Hernandez M.D. RB: AMADA Report ID: [id number] Reading Location: [id number] Julio Landeros DO IMG XR PROCEDURES Final Result * XR Shoulder Left 2 or More Views (07/12/2024 10:08 AM PRIMARY MONTESSORI TEACHER) Anatomical Region Laterality Modality Upper Extremities, Shoulder Left Comp uted Radiography 07/12/2024 10:1 3 AM PRIMARY MONTESSORI TEACHER Narrative 07/12/2024 10:14 AM PRIMARY MONTESSORI TEACHER EXAM DESCRIPTION: XR SHOULDER LEFT 2 OR [...] Wally Hernandez M.D. RB: AMADA Report ID: [id number] Reading Location: [id number] Procedure Note Wally Hernandez MD - 07/12/2024 [...] Wally Hernandez M.D. RB: AMADA Report ID: [id number] Reading Location: [id number] Julio Landeros DO IMG XR PROCEDURES Final Result * POCT glucose (07/12/2024 9:33 AM PRIMARY MONTESSORI TEACHER) Glucose, POC 164 70 - 199 mg/dL Comment:Testing performed by : [address] [address] Glucose comment 1 Use This Result NILSA RODRIGES Comment:Testing performed by : [address] [address] Blood 07/12/2024 9:33 AM PRIMARY MONTESSORI TEACHER 07/12/2024 9:33 AM PRIMARY MONTESSORI TEACHER us Notinfile Unknown LAB POCT ORDERABLES - DEVICE F inal Result NILSA [address] [facility] [place] [address] * Lipid panel (05/16/2024 10:14 AM PRIMARY MONTESSORI TEACHER) Cholesterol 160 30 - 199 mg/dL Comment: [...] NILSA DIAS Blood 05/16/2024 10:1 4 AM PRIMARY MONTESSORI TEACHER 05/16/2024 10:50 AM PRIMARY MONTESSORI TEACHER Narrative NILSA DIAS - 05/16/2024 11:23 AM PRIMARY MONTESSORI TEACHER These lab test should be done fasting. This means do not eat or drink for at least 12 hours prior to getting your blood drawn. Smith Gibbs MD LAB BLOOD ORDERABLES Final R esult CERNER BJW[facility] [address] [facility]. Department of Laboratories [place], [place] [id number] * Colonoscopy (03/01/2024 8:49 AM CDT) Anatomical Region Laterality Modality Other Narrative Procedure Note Jaya Grier MD - 03/01/2024 8:49 AM CDT [facility] GI ENDOSCOPY Patient Name: Sixto Banksgers Procedure Date: 03/01/2024 8:49 AM Date of : 1950 Admit Type: Outpatient Age: 73 Gender: Female Attending MD: Jaya Grier M.D. Room: [facility] ENDOSCOPY ROOM 06 Note Status: Finalized Procedure: [...] The scope was passed under direct vision.The [id number]-[id number] colonoscope was introduced through theanus and advanced [...] On: 03/01/2024 8:49 AM Recognized by the [employer] for promoting quality [...] taking vitamin-D. History of end-stage renal disease. Moose Hunter/Model: doubleTwist A (S/N [id number]) CLINICAL INFORMATION: Current height: 61 inches Maximum [...] Rafaela Paulino M.D. TW: TW Report ID: [id number] Reading Location: [place] [address] Procedure Note Rafaela Paulino MD - 01/22/2024 EXAM DESCRIPTION: DEXA AXIAL SKELETON BONE DENSITY 1 OR MORE SITES REASON FOR STUDY: 73 y/o year old F with given history of: Post menopausal status. History of taking vitamin-D. History of end-stagerenal disease. Moose Hunter/Model: doubleTwist A (S/N [id number]) CLINICAL INFORMATION: Current height: 61 inches Maximum [...] Rafaela Paulino M.D. TW: TW Report ID: [id number] Reading Location: [place] [address] us Cherelle Corcoran MD IMDiaz DXA PROCEDURE [...] age 40, based on guidelines of the [employer] (ACR Practice Parameter for the Performance of Screening and Diagnostic Mammography) and [employer]. For women [...] B core IgM Nonreactive Nonreactive [facility] Comment: Interpretive Data If HepB Core IgM [...] revised on 2019. HepBsAg Nonreactive Nonreactive [facility] Blood 10/15/2023 6:50 AM CDT 10/15/2023 7:07 AM CDT Jimbo Strauss MD LAB MICROBIOLOGY - [facility] Final Result [facility] [address] Department of Laboratories [place], [place] [id number] * (ABNORMAL) Albumin Creatinine Ratio, Urine (10/10/2022 11:39 AM CDT) Albumin Ur 3,240.2 mg/L NILSA Comment: Interpretive Data No reference range established. Current interpretive data was last revised 2018. Testing performed by: [address] [address] Creatinine Ur 74.8 mg/dL NILSA Comment: Interpretive Data No reference range established. Current interpretive data was last revised 2018. Testing performed by: [address] [address] Albumin Creatinine Ratio, Ur 4,332(H) 1 - 29 mg/g NILSA Comment:Testing performed by : [address] [address] Urine 10/10/2022 11:3 9 AM CDT 10/10/2022 1:45 PM CDT us Markie Ryan MD LAB URINE ORDERABLES Final Re sult NILSA [address] [facility] [place] [address] from Last 3 Months or Most Recently Relevant to Health Maintenance
--- OUTSIDE RECORDS SUMMARY | 2024-09-21 16:02 | XMS_ITS | Encounter Summary ---
Author Organization [facility] Address [address] [place] [address] Phone Care Team Providers Care Tip Inserter Name Role Phone Cherelle Corcoran MD Primary Care Pro vider QueenMark Perez MD Unavailable [phone] Brandie Callejas MA Unavailable Unav ailable Xenia Padilla LPN Unavailable [phone] Samples, Melania Joel RN Unavailable [phone] Anam Costa LCSW Unavailable Unavailabl e Samples, Melania Joel RN Unavailable Rudolph Welch MD Unavailable Markie Ryan MD Unavailable [phone] Nadege Ramírez RN Unavailable [phone] Dulce Vega RN Unavailable [phone] Jimbo Strauss MD Unavailable [phone] Jaya Grier MD Unavailable Edgardo Kauffman MD Unavailable [phone] Encounter Details Date Type Department Care Team (Late st Contact Info) Description 12/30/2021 Telephone [facility] Endocrinology Metabolism and Lipid [address] [facility] 5th [place] [address] [place] [address] Rachael Smith CMA Social History [...] file Legal Sex Female 9:03 AM HEEL STIFFENER Gender Identity Female 02/08/2020 6:39 PM CDT [...] COVID: Suspected 05/08/2022 05/08/2022 05/08/2022 4:26 PM HEEL STIFFENER COVID: Suspected 06/19/2022 06/19/2022 06/19/2022 12:37 PM HEEL STIFFENER COVID: Suspected 08/01/2022 08/01/2022 08/01/2022 2:28 PM HEEL STIFFENER COVID: Suspected 10/02/2022 10/02/2022 10/02/2022 8:14 PM CDT MRSA Comment:Toe 11/08/22, 12/12/22 11/08/2022 12/12/2022 06/10/2023 3:05 AM HEEL STIFFENER COVID: Suspected 12/08/2022 12/08/2022 12/08/2022 8:17 PM CDT COVID: Suspected 07/27/2023 07/27/2023 07/28/2023 12:57 AM HEEL STIFFENER COVID: Suspected 10/29/2023 10/30/202310/30/2023 10:59 AM CDT 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 12/19/2023 12/19/2023 3:58 PM CDT 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 12/29/2023 06/26/2024 3:05 AM HEEL STIFFENER COVID: Suspected 04/19/2024 04/19/2024 04/20/2024 12:44 AM CDT COVID: Suspected 07/12/2024 07/12/2024 07/12/2024 12:39 PM HEEL STIFFENER COVID: Suspected 07/31/2024 07/31/2024 07/31/2024 2:06 PM HEEL STIFFENER documented as of this encounter Care Teams Tip Inserter Relationship Specialty Start Date End Date Cherelle Corcoran MD PCP - General Family Medicine 08/30/19 Mark Queen MD Consulting Physician Infectious Diseases 01/10/20 Brandie Callejas MA Patient Pad Hand 06/20/22 06/22/22 Xenia Padilla LPN [address] [place] [address] [address] [place] [address] Payroll Manager 06/24/22 06/24/22 Samples, Melania Joel RN [address] [place] [address] [address] [place] [address] Payroll Manager 07/22/22 08/21/22 Anam Costa LCSW [address] [place] [address] [address] [place] [address] Quality Cloth Tester 08/08/22 02/18/23 Samples, Melania Joel RN [address] [place] [address] [address] [place] [address] Payroll Manager 08/22/22 12/07/22 Rudolph Welch MD [address] [facility] [address] [place] [address] Consulting Physician Infectious Diseases 12/05/22 Markie Ryan MD [address] [facility] [address] [place] [address] Consulting Physician Nephrology 12/05/22 Nadege Ramírez RN [address] [place] [address] [address] [place] [address] Payroll Manager 01/20/23 02/23/23 Dulce Vega RN [address] [place] [address] [address] [place] [address] Payroll Manager 10/07/23 05/03/24 [place] [address] [place] [address] [place] [address] Consulting Physician Nephrology 10/22/23 Jaya Grier MD [address] [facility] [address] [place] [address] Consulting Physician Gastroenterology 02/01/24 Edgardo Kauffman MD [address] [facility] [address] [place] [address] Surgeon Vascular Surgery 07/15/24 documented as of this encounter
--- OUTSIDE RECORDS SUMMARY | 2024-09-21 16:02 | XMS_ITS | Continuity of Care Document ---
Author Organization [facility] Address [address] [facility] [address] [place] [address] Phone Care Team Providers Care Lock Installer Name Role Phone Luis OD, Alvarado Unavailable Unavailable Advance Directives Directive Yes / No Effective Date File Name No Information Encounters Encounter Description Practice Location Reason(s) For Visit Diagnoses Date Provider Providers Copied on Encounter [facility], [address], [place], [place], [id number], [place] tel:[phone] [facility] No Information May-2 0-200 5 Luis OD Alvarado. [address] [facility] [facility] , [address], [place], [address], [place]. tel:[phone] Family History Family Member Type Diagnosis Age At Onset No Information Payers Payer name Insurance type Covered republican ID Authoriza tion(s) Medicaid [facility] [id number] Social History Type Description Quantity Date Captured [...]
--- OUTSIDE RECORDS SUMMARY | 2024-09-21 16:02 | XMS_ITS | Clinical Summary ---
Author Organization [facility] Address [facility] [place] [address] Care Team Providers Care Head Of Insight Name Role Phone Cherelle Corcoran MD Primary Care Provider [phone] Social History Tobacco Use Types Packs/Day Years [...] 11/20, 08/02/2022, Additional history exists PHQ-2 (Physician [place]) 06/22/2024 Mammogram Screening 01/21/2026 01/22/2024, 09/25/2022, 01/08/2021, [...] this topic Insurance MEDICARE MEDICAID Care Teams Head Of Insight Relationship Specialty Start Date End Date Cherelle Corcoran MD [address] [place] [address] PCP - General FAMILY PRACTICE 09/27/19
--- OUTSIDE RECORDS SUMMARY | 2024-09-21 16:03 | XMS_ITS | Encounter Summary ---
Author Organization [facility] Address [address] [place] [address] Care Team Providers Care Grinder Operator Tool Name Role Phone Cherelle Corcoran MD Primary Care Pro vider Mark Queen MD Unavailable [phone] Rudolph Welch MD Unavailable [phone] Markie Ryan MD Unavailable Jimbo Strauss MD Unavailable [phone] Jaya Grier MD Unavailable Edgardo Kauffman MD Unavailable [phone] Reason for Visit * Reason Onset Date Comments Weakness - Generalized 06/27/2024 Encounter Details Date Type Department Care Team (Late st Contact Info) Description 06/27/2024 Nurse Triage [facility] Primary Care at [place] [address] [facility] [address] [place] [address] Cherelle Corcoran MD [facility] [facility] [address] [place] [address] Social History Tobacco Use Types [...] materials from doctor or pharmacy Often 01/20/2024 [facility] Utilities Answer Date Recorded In [...] you attend chur ch or yarsani services? More than 4 [...] [facility] the [facility] were you [facility] or living [...] on file Legal Sex Female 9:03 AM PACK WORKER Gender Identity Female 02/08/2020 6:39 PM CDT Sexual Orientation Not on file documented as of this encounter Miscellaneous Notes * Telephone Encounter - Cherelle Corcoran MD - 06/28/2024 10:05 AM CST Thank you WORKER * Telephone Encounter - Sandy Mota MA - 06/28/2024 9:47 AM CST Spoke with pt daughter and she stated that the ambulance took her to the nearest ER which was [facility]. She is currently admitted into [facility] to rule out stroke. They are doing a MRI today per pt daughter. She is still in the ER as they do not have a bed for her just yet upstairs in the hospital. I advised Ursula to keep us updated with any big changes via [employer] if she needs to. WORKER * Telephone Encounter - Cherelle Corcoran MD - 06/28/2024 9:13 AM CST Acknowledged, it does not look like she went to [facility]. Can you follow up to see if she went to [place] and what status is? thanks WORKER * Telephone Encounter - Ruby Chapman RN [...] the triager Protocols used: Weakness (Generalized) and [id number]-HA WORKER * Telephone Encounter - Ruby Chapman RN - 06/27/2024 4:05 PM CST Regarding: explosive diarrhea, not moving like her hands are cramped up, barely talking to her and she's not e ----- Message from Berenice Hobbs sent at 06/27/2024 4:02 PM PACK WORKER ----- Symptom Based Call Chief Complaint(s): Areli [...] appointment not scheduled? Requesting advice from clinical truck driver teamster. Additional Comments: Caller stated the patient was suppose to go to dialysis today on 06/27/24 but didn't due to the weather, please advise. Does message need to be routed? Yes-Action Needed WORKER documented in this encounter Plan of Treatment Scheduled Procedures Name Priority Associated Diagnoses Date/Ti me COLONOSCOPY Iron deficiency anemia due to chronic blood loss documented as of this encounter Visit Diagnoses Not on filedocumented in this encounter Additional Health Concerns Infection Onset Date Last Indicated Resolved Time COVID: Suspected 07/12/2024 07/12/2024 07/12/2024 12:39 PM PACK WORKER COVID: Suspected 07/31/2024 07/31/2024 07/31/2024 2:06 PM PACK WORKER documented as of this encounter Care Teams Grinder Operator Tool Relationship Specialty Start Date End Date Cherelle Corcoran MD PCP - General Family Medicine 08/30/19 Mark Queen MD Consulting Physician Infectious Diseases 01/10/20 Rudolph Welch MD [address] [place] [address] [address] [place] [address] Consulting Physician Infectious Diseases 12/05/22 Markie Ryan MD [address] [facility] [address] [place] [address] Consulting Physician Nephrology 12/05/22 [place] [address] [address] Consulting Physician Nephrology 10/22/23 Jaya Grier MD [address] [facility] [address] [place] [address] Consulting Physician Gastroenterology 02/01/24 Edgardo Kauffman MD [address] [facility] [address] [place] [address] Surgeon Vascular Surgery 07/15/24 documented as of this encounter
--- OUTSIDE RECORDS SUMMARY | 2024-09-21 16:03 | XMS_ITS | Encounter Summary ---
Author Organization [facility] Healthcare Address [address] [place] [address] Care Team Providers Care Director Of Corporate Marketing Name Role Phone Cherelle Corcoran MD Primary Care Pro vider Mark Queen MD Unavailable [phone] Rudolph Welch MD Unavailable Markie Ryan MD Unavailable Jimbo Strauss MD Unavailable [phone] Jaya Grier MD Unavailable Edgardo Kauffman MD Unavailable [phone] Encounter Details Date Type Department Care Team (Late st Contact Info) Description 09/14/2024 Results Follow-Up [facility] Gastroenterology at [address] [place] [address] Jaya Grier MD [address] [place] [address] [address] [place] [address] Social History Tobacco Use Types [...] from doctor or pharmacy Often 01/20/2024 [facility] Utilities Answer Date Recorded In the past 12 months has th e [employer], gas, oil, or water [employer] threatened to shut off services in [...] any time in the past 12 m [facility], were you homeless or living in [...] on file Legal Sex Female 9:03 AM LABELING STRATEGIST Gender Identity Female 02/08/2020 6:39 PM CDT Sexual Orientation Not on file documented as of this encounter Plan of Treatment Scheduled Procedures Name Priority Associated Diagnoses Date/Ti me COLONOSCOPY Iron deficiency anemia due to chronic blood loss documented as of this encounter Visit Diagnoses Not on filedocumented in this encounter Care Teams Director Of Corporate Marketing Relationship Specialty Start Date End Date Cherelle Corcoran MD PCP - General Family Medicine 08/30/19 Mark Queen MD Consulting Physician Infectious Diseases 01/10/20 Rudolph Welch MD [address] [facility] [address] [place] [address] Consulting Physician Infectious Diseases 12/05/22 Markie Ryan MD [address] [facility] [address] [place] [address] Consulting Physician Nephrology 12/05/22 [place] [id number] [address] Consulting Physician Nephrology 10/22/23 Jaya Grier MD [address] [facility] [address] [place] [address] Consulting Physician Gastroenterology 02/01/24 Edgardo Kauffman MD [address] [facility] [address] [place] [address] Surgeon Vascular Surgery 07/15/24 documented as of this encounter
--- OUTSIDE RECORDS SUMMARY | 2024-09-21 16:03 | XMS_ITS | Clinical Summary ---
Author Organization [facility] Address [address], [address] [address] Phone Care Team Providers Care Tanbark Laborer Name Role Phone Cherelle Corcoran MD [...] - 144 mmol/L 03/11/2019 11:10 AM CDT [facility] POTASSIUM 4.8 3.5 - 5.1 mmol/L 03/11/2019 11:10 AM CDT [facility] CHLORIDE 96(L) 100 - 110 mmol/L 03/11/2019 11:10 AM CDT [facility] CO2, VENOUS 28 22 - 32 mmol/L 03/11/2019 11:10 AM CDT [facility] ANION GAP 17.8 8.0 - 20.0 mmol/L 03/11/2019 11:10 AM CDT [facility] GLUCOSE 216(H) 70 - 99 mg/dL 03/11/2019 11:10 AM CDT [facility] BUN 22 8 - 23 mg/dL 03/11/2019 11:10 AM CDT [facility] CREATININE, BLOOD 0.66 0.60 - 1.10 mg/dL 03/11/2019 11:10 AM [facility] BUN/CREATININE RATIO 33(H) 12 - 20 ratio 03/11/2019 11:10 AM [facility] TOTAL PROTEIN 8.4(H) 6.0 - 8.3 g/dL 03/11/2019 11:10 AM [facility] ALBUMIN 4.3 3.5 - 5.2 g/dL 03/11/2019 11:10 AM [facility] Comment: The colormetric methods used for the determination of Albumin may lead to falsely elevated test results in patients suffering from renal failure or insufficiency due to interference with other proteins. A/G RATIO 1.0 1.0 - 2.0 03/11/2019 11:10 AM [facility] CALCIUM 10.4(H) 8.9 - 10.3 mg/dL 03/11/2019 11:10 AM [facility] T BILI 0.3 <=1.2 mg/dL 03/11/2019 11:10 AM [facility] SGOT (AST) 19 <=32 U/L 03/11/2019 11:10 AM [facility] Comment: Hemolysis present: results may be falsely elevated. SGPT (ALT) 14 <=33 U/L 03/11/2019 11:10 AM [facility] ALKALINE PHOSPHATASE 123(H) 35 - 105 U/L 03/11/2019 11:10 AM [facility] GFR, EST. NONAFRICAN >60 >=60 03/11/2019 11:10 AM [facility] GFR, EST. >60 >=60 019 11:10 AM [facility] Comment: Creatinine Clearance is the preferred criteria for selecting drug dose adjustments in renally impaired patients. The GFR is provided as additional pertinent clinical information. GFR is reported in mL/min/1.73 sq m. Blood specimen (specimen) Venous Catheter (IV) / Unknown 03/11/2019 10:23 AM CDT 03/11/2019 10:46 AM CDT us Ronald Haro MD CHEMISTRY ORDERABLES Final Result Performing Organization Address City/[facility]/ZIP Co de Phone Number [facility] [place] [address] * (ABNORMAL) POCT GLYCOSYLATED HEMOGLOBIN (01/20/2019 9:44 AM CDT) HGB-A1C 15(A) 4 - 6 Comment:above 15 01/20/2019 9:44 AM CDT us Choco Morris PAC POINT OF CARE TESTING (M ANUAL) Final Result * Stool, Occult Blood, Diagnostic (03/30/2017 2:09 PM CDT) OCCULT BLOOD DIAG, GI BLEED Negative Negative 03/30/2017 2:29 PM CDT [facility] Stool specimen (specimen) STOOL SPECIMEN / Unknown Non-Phlebotomy Collection / Unknown 03/30/2017 2:09 PM CDT 03/30/2017 2:23 PM CDT us Anali Ortiz PAC BODY FLUIDS & STOOLS ORDERAB LES Final Result Performing Organization Address City/[facility]/ZIP Co de Phone Number [facility] [place] [address] * CHERYL SCREENING BILATERAL DIGITAL W CAD [...] measures to stabilize the patient. Care Teams Tanbark Laborer Relationship Specialty Start Date End Date Cherelle Corcoran MD [address] [place] [id number] PCP - General Family Medicine 02/12/24 Sim López MD [address] [place] [id number] Consulting Physician Oncology 02/12/24
--- OUTSIDE RECORDS SUMMARY | 2024-09-21 16:03 | XMS_ITS | Encounter Summary ---
Author Organization [facility] Healthcare Address [address] [place] [address] Care Team Providers Care Furnace Keeper Name Role Phone Cherelle Corcoran MD Primary Care Pro vider Mark Queen MD Unavailable [phone] Xenia Padilla LPN Unavailable [phone] Sarahy Schmidt SPECIMEN TECHNICIAN Unavailable [phone] Brandie Callejas MA Unavailable Unav ailable Xenia Padilla LPN Unavailable [phone] Samples, Melania Joel RN Unavailable Anam Costa LCSW Unavailable Unavailabl e Samples, Melania Joel RN Unavailable Rudolph Welch MD Unavailable [phone] Markie Ryan MD Unavailable [phone] Nadege Ramírez RN Unavailable Dulce Vega RN Unavailable Jimbo Strauss MD Unavailable [phone] Jaya Grier MD Unavailable Edgardo Kauffman MD Unavailable [phone] Encounter Details Date Type Department Care Team (Late st Contact Info) Description 12/26/2019 Telephone [facility] Nutrition and Diabetic Education 1 [facility] [place] [address] Anastasia Leblanc, RN Social History Tobacco Use Types Packs/Day Years Used Date Smoking Tobacco: Never Smokeless Tobacco: Never Alcohol Use Standard Drinks/Week Comments Not Currently 0 (1 standard drink = 0.6 oz pur e alcohol) PHQ-2 Answer Date Recorded PHQ-2 Score 0 08/30/2019 Comments No Sex and Gender Information Value Date Recorded Sex Assigned at Not on file Legal Sex Female 9:03 AM CRIME SCENE PHOTOGRAPHER Gender Identity Female 02/08/2020 6:39 PM [...] CDT COVID19 08/13/2021 08/13/2021 08/24/2021 3:05 AM CRIME SCENE PHOTOGRAPHER COVID: Recovered Comment:Added based on recent COVID infection. 08/24/2021 08/26/2021 12/22/2021 3:05 AM C DT COVID: Suspected Comment:11/15/2021 pt is covid recovered 11/15/2021 11/15/2021 11/15/2021 3:32 PM C DT COVID: Suspected 11/15/2021 11/16/2021 11/16/2021 1:45 AM CDT Human metapneumovirus, conta ct + droplet 11/16/2021 11/16/2021 11/30/2021 3:05 AM C DT COVID: Suspected 05/08/2022 05/08/2022 05/08/2022 4:26 PM CRIME SCENE PHOTOGRAPHER COVID: Suspected 06/19/2022 06/19/2022 06/19/2022 12:37 PM CRIME SCENE PHOTOGRAPHER COVID: Suspected 08/01/2022 08/01/2022 08/01/2022 2:28 PM CRIME SCENE PHOTOGRAPHER COVID: Suspected 10/02/2022 10/02/2022 10/02/2022 8:14 PM CDT MRSA Comment:Toe 11/08/22, 12/12/22 11/08/2022 12/12/2022 06/10/2023 3:05 AM CRIME SCENE PHOTOGRAPHER COVID: Suspected 12/08/2022 12/08/2022 12/08/2022 8:17 PM CDT COVID: Suspected 07/27/2023 07/27/2023 07/28/2023 12:57 AM CRIME SCENE PHOTOGRAPHER COVID: Suspected 10/29/2023 10/30/2023 10/30/2023 10:59 AM CDT 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 12/19/2023 12/19/2023 3:58 PM CDT 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 12/29/2023 06/26/2024 3:05 AM CRIME SCENE PHOTOGRAPHER COVID: Suspected 04/19/2024 04/19/2024 04/20/2024 12:44 AM CDT COVID: Suspected 07/12/2024 07/12/2024 07/12/2024 12:39 PM CRIME SCENE PHOTOGRAPHER COVID: Suspected 07/31/2024 07/31/2024 07/31/2024 2:06 PM CRIME SCENE PHOTOGRAPHER documented as of this encounter Care Teams Furnace Keeper Relationship Specialty Start Date End Date Cherelle Corcoran MD PCP - General Family Medicine 08/30/19 Mark Queen MD Consulting Physician Infectious Diseases 01/10/20 Xenia Padilla LPN Secretarial Stenographer 09/19/21 09/19/21 Sarahy Schmidt LPN [address] [place] [address] [address] [place] [address] ACO Care Store Grocery Merchandiser 11/27/21 12/25/21 Brandie Callejas MA Patient Medical Dermatologist 06/20/22 06/22/22 Xenia Padilla LPN [address] [place] [address] [address] [place] [address] Secretarial Stenographer 06/24/22 06/24/22 Samples, Melania Joel RN [address] [place] [address] [address] [place] [address] Secretarial Stenographer 07/22/22 08/21/22 Anam Costa LCSW [address] [place] [address] [address] [place] [address] Associate Veterinarian 08/08/22 02/18/23 Samples, Melania Joel RN [address] [place] [address] [address] [place] [address] Secretarial Stenographer 08/22/22 12/07/22 Rudolph Welch MD [address] [facility] [address] [place] [address] Consulting Physician Infectious Diseases 12/05/22 Markie Ryan MD [address] [facility] [address] [place] [address] Consulting Physician Nephrology 12/05/22 Nadege Ramírez RN [address] [place] [address] [address] [place] [address] Secretarial Stenographer 01/20/23 02/23/23 Dulce Vega, ALIREZA [address] [place] [address] [address] [place] [address] Secretarial Stenographer 10/07/23 05/03/24 [place] [address] [address] [place] [address] Consulting Physician Nephrology 10/22/23 Jaya Grier MD [address] [facility] [address] [place] [address] Consulting Physician Gastroenterology 02/01/24 Edgardo Kauffman MD [address] [facility] [address] [place] [address] Surgeon Vascular Surgery 07/15/24 documented as of this encounter
--- OUTSIDE RECORDS SUMMARY | 2024-09-21 16:03 | XMS_ITS | Clinical Summary ---
Author Organization [facility] Address [address] [place] [address] Care Team Providers Care Aircraft Load Controller Name Role Phone Cherelle Corcoran MD Primary Care Pro vider QueenMark Perez MD Unavailable [phone] Rudolph Welch MD Unavailable [phone] Markie Ryan MD Unavailable [phone] Jimbo Strauss MD Unavailable [phone] Jaya Grier MD Unavailable Edgardo Kauffman MD Unavailable Allergies No known active allergies Medications lidocaine (ASPERCREME) 4 % adhesive patch,medicated Place 1 patch on the skin daily as needed to lower back Active polyethylene glycol (MIRALAX) 17 gram/dose bulk powder Take 17 g by mouth daily as needed (Constipation) 595 g 024 Active FreeStyle Madhav 3 [facility] [place], [place] Use Madhav 3 reader to scan Madhav [...] nephropathy, with long-term current use of insulin (ROPER [...] ([facility]) Use Madhav 3 reader to scan [...] 07/07/2024 Assessment & Plan (07/14/2024 2:30 PM ENFORCEMENT OFFICER): Continue Lipitor Assessment & Plan (07/14/2024 8:56 AM ENFORCEMENT OFFICER): Ok to restart atorvastatin, but also given [...] 11/02/2023 Assessment & Plan (07/14/2024 2:39 PM ENFORCEMENT OFFICER): Patient is needing a Perma catheter exchange [...] proceed. Assessment & Plan (07/14/2024 8:51 AM ENFORCEMENT OFFICER): Following with nephrology Assessment & Plan (01/06/2024 [...] 10/30/2023 Assessment & Plan (05/06/2024 7:49 AM ENFORCEMENT OFFICER): Reviewed hospital discharge summary Now resolved Upcoming [...] stable Assessment & Plan (07/24/2023 1:51 PM ENFORCEMENT OFFICER): Chronic/stable Parkinsonism 08/14/2022 Assessment & Plan (07/14/2024 8:54 AM ENFORCEMENT OFFICER): Following with neurology, recommend reaching out to them in regards to restarting benztropine. Consider waiting until after restarts other medications given daughter reports tremors controlled off benztropine currently Assessment & Plan (11/10/2023 4:43 PM CDT): Following with neurology On cogentin Assessment & Plan (07/24/2023 1:50 PM ENFORCEMENT OFFICER): Following with neurology On cogentin twice a day Assessment & Plan (01/23/2023 9:20 AM CDT): Following with neurology On cogentin twice a day Assessment & Plan (10/10/2022 10:41 AM CDT): Following with neurology On cogentin Assessment & Plan (08/14/2022 10:46 AM ENFORCEMENT OFFICER): Following with neurology, reviewed note On cogentin [...] walker. - PT/OT recommends SNF. -Plan [facility] on 11/26 ? Assessment & Plan (11/24/2021 2:07 PM CDT): Deconditioning 2/2 prolonged hospitalization. Daughter reports that prior to her illness, she was independent with a walker. - PT/OT recommends SNF. -Plan [facility] on 11/25. Assessment & Plan (11/23/2021 12:24 PM CDT): Deconditioning 2/2 prolonged hospitalization. Daughter reports that prior to her illness, she was independent with a walker. - PT/OT recommends SNF. -Plan [facility] on 11/25. Assessment & Plan (11/22/2021 1:34 PM CDT): Deconditioning 2/2 prolonged hospitalization. Daughter reports that prior to her illness, she was independent with a walker. - PT/OT recommends SNF. -Plan [facility]ued[facility] on 11/25. Assessment & Plan (11/21/2021 [...] care Assessment & Plan (08/14/2022 10:47 AM ENFORCEMENT OFFICER): Following with podiatry Assessment & Plan (04/02/2022 [...] - renal consulted regarding volume management, possible termite control representative dialysis planning, expedite OP f/u. Serologies and urine studies ordered. ED neg, compliments neg, cryoglobulin pending, ANCA pending, HIV neg. Continued -Added metolazone 2.5mg/daily per renal 09/13- with improving swelling, Cr bump to 2.33 so held further -Transitioned to PO agents prior to DC (09/17) with ongoing clinical improvement. Goal weight 155lbs -Home with family at [place], condominium association manager consulted to review salt restrictions. -outpatient [...] - renal consulted regarding volume management, possible retirement dialysis planning, expedite OP f/u. Serologies and urine studies ordered. ED neg, compliments neg, cryoglobulin pending, ANCA pending, HIV neg. Continued -Added metolazone 2.5mg/daily per renal 09/13- with improving swelling, Cr bump to 2.33 so held further -Anticipate likely transition to PO agents prior to DC (?09/17) with ongoing clinical improvement. Goal weight 155lbs -Home with family at [place], condominium association manager consulted to review salt restrictions. Assessment [...] - renal consulted regarding volume management, possible termite control representative dialysis planning, expedite OP f/u. Serologies and urine studies ordered. -Added metolazone 2.5mg/daily per renal. -Anticipate likely transition to PO agents prior to DC with ongoing clinical improvement. Goal weight 145-150lbs -Home with family at [place], condominium association manager consulted to review salt restrictions. Assessment [...] - renal consulted regarding volume management, possible retirement dialysis planning, expedite OP f/u. Serologies and [...] - renal consulted regarding volume management, possible termite control representative dialysis planning, expedite OP f/u. Serologies and [...] - renal consulted regarding volume management, possible termite control representative dialysis planning, expedite OP f/u. Assessment & [...] net neg 1/2-1L/day. -consider renal consult regarding termite control representative dialysis planning, expedite OP f/u. Assessment & [...] net neg 1/2-1L/day. -consider renal consult regarding termite control representative dialysis planning. Assessment & Plan (09/06/2021 10:28 [...] 08/19/2021 Assessment & Plan (07/14/2024 8:53 AM ENFORCEMENT OFFICER): Following with neurology Assessment & Plan (01/05/2024 10:40 PM CDT): Follows with neurology. -continue risperidone 2mg QHS -continue benztropine 2mg daily Assessment & Plan (11/10/2023 4:37 PM CDT): Following with neurology Assessment & Plan (07/24/2023 1:50 PM ENFORCEMENT OFFICER): Following with neurology Assessment & Plan (01/23/2023 9:18 AM CDT): Following with neurology Assessment & Plan (10/10/2022 10:37 AM CDT): Following with neurology, ordered MRI, # given to son to schedule Assessment & Plan (06/09/2022 3:37 PM ENFORCEMENT OFFICER): Needs to reschedule with neurology Looking into retirement, but declined for [facility] for schizoaffective disorder Assessment & Plan (01/14/2022 9:05 AM CDT): Following with psychiatry Assessment & Plan (09/03/2021 3:28 PM CDT): Chronic, stable. Alert, oriented to self, current place. Continue to monitor. Clock drawing test at next interval. Consideration for Aricept. Encounter for Medicare annual wellness exam 12/21 Assessment & Plan (11/10/2023 4:42 PM CDT): Reviewed [facility] & PHQ Screening PHQ-2 Total Score (If total score is 3 or more points, staff should administer the PHQ-9): 2 Hearing/vision screening reviewed, referrals placed as needed Fall risk reviewed Reviewed medications and supplements Specialists: endocrine, nephrology, cardiology, neurology, psychiatry evidence of cognitive impairment HCM: orders placed as needed Assessment & Plan (06/09/2022 3:37 PM ENFORCEMENT OFFICER): Reviewed [facility] & PHQ Screening PHQ-2 Total Score (If [...] type Assessment & Plan (08/18/2024 8:44 AM ENFORCEMENT OFFICER): Chronic, stable. Does not report any stephanie [...] discussed. Assessment & Plan (07/14/2024 8:54 AM ENFORCEMENT OFFICER): Following with psychiatry, recommend reaching out to [...] psychiatry Assessment & Plan (07/24/2023 1:50 PM ENFORCEMENT OFFICER): Following with psychiatry Assessment & Plan (01/23/2023 [...] discussed. Assessment & Plan (08/09/2021 5:42 AM ENFORCEMENT OFFICER): Following with psychiatry Assessment & Plan (08/07/2021 3:28 PM ENFORCEMENT OFFICER): Chronic condition, switch to Haldol and has had multiple different problems including acute kidney failure in infectious process. Records not available at outside hospital-[facility]. Confounded by delirium. Currently experiencing delirium will discontinue Haldol and return to Risperdal as previously taking. Risperdal was discontinued due to poorly-controlled diabetes. Monitor in 1 to 2 weeks. Assessment & Plan (07/03/2021 7:24 AM ENFORCEMENT OFFICER): Following with psychiatry D/c risperidone, started on haldol Assessment & Plan (07/01/2021 9:16 PM ENFORCEMENT OFFICER): Chronic, stable. 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 The patient previously lived on her own and was observed to be hoarding. See additional problems-dementia. Evaluate again in 1 month after starting Risperdal. Iron deficiency anemia 04/02/2020 Assessment & Plan (05/06/2024 7:51 AM ENFORCEMENT OFFICER): Recommend discussing IV iron with nephrology Assessment & Plan (10/02/2020 4:35 PM CDT): Continue iron Assessment & Plan (05/28/2020 1:51 PM ENFORCEMENT OFFICER): Iron levels recently normalized, but still anemic, repeat today Assessment & Plan (04/16/2020 11:45 AM CDT): Recent iron within normal limits, H/H improving, continue supplementation until normalized Gastroesophageal reflux disease without esophagi tis 04/02/2020 Assessment & Plan (07/14/2024 8:56 AM ENFORCEMENT OFFICER): Restart protonix Upcoming EGD Assessment & Plan (01/05/2024 10:40 PM CDT): -continue famotidine Assessment & Plan (10/02/2020 4:35 PM CDT): Continue omeprazole Assessment & Plan (07/24/2020 2:06 PM ENFORCEMENT OFFICER): Recurrent symptoms off omeprazole, restart Assessment & Plan (05/28/2020 1:51 PM ENFORCEMENT OFFICER): Iron levels recently normalized, but still anemic, repeat today Assessment & Plan (04/02/2020 1:26 PM CDT): Start PPI History of amputation of toe 01/19/2020 Assessment & Plan (01/08/2021 3:50 PM CDT): Stable Assessment & Plan (10/02/2020 4:35 PM CDT): Stable Assessment & Plan (04/30/2020 1:00 PM ENFORCEMENT OFFICER): Stable Assessment & Plan (02/14/2020 5:15 PM CDT): Healing well Following with surgeon/wound clinic Assessment & Plan (01/19/2020 5:17 PM CDT): Has home health Following with vascular Hypertension associated with diabetes 12/13/2019 Assessment & Plan (07/14/2024 2:32 PM ENFORCEMENT OFFICER): Continue carvedilol, hydralazine Assessment & Plan (07/14/2024 8:51 AM ENFORCEMENT OFFICER): BP controlled today off medication Daughter reports nephrology said could restart medication, is planning to restart coreg first and monitor blood pressure prior to restarting nifedipine/hydralazine Assessment & Plan (05/06/2024 7:48 AM ENFORCEMENT OFFICER): BP controlled Continue nifedipine, hold prior to [...] admission at [facility] with initiation of hydralazine and nifedipine [...] amlodipine Assessment & Plan (08/03/2023 4:02 PM ENFORCEMENT OFFICER): BP uncontrolled Start 5mg amlodipine Assessment & Plan (07/24/2023 1:49 PM ENFORCEMENT OFFICER): Blood pressure borderline today off medications Assessment & Plan (01/23/2023 9:18 AM CDT): Blood pressure borderline low today, asymptomatic Checking labs Advised to decrease amlodipine to 5mg and monitor blood pressure Assessment & Plan (10/10/2022 10:50 AM CDT): Continue coreg 6.25mg twice a day & 40mg valsartan Assessment & Plan (08/14/2022 10:43 AM ENFORCEMENT OFFICER): Blood pressure at goal, continue coreg 6.25mg twice a day Assessment & Plan (06/09/2022 3:32 PM ENFORCEMENT OFFICER): Blood pressure at goal, continue coreg 3.125mg [...] day Assessment & Plan (08/05/2021 10:35 AM ENFORCEMENT OFFICER): Blood pressure at goal Increase amlodipine to 10mg & d/c hydralazine per cardiology Assessment & Plan (05/28/2021 4:59 PM ENFORCEMENT OFFICER): Blood pressure above goal, but previously within [...] lisinopril Assessment & Plan (08/28/2020 12:12 PM ENFORCEMENT OFFICER): Blood pressure at goal Continue lisinopril Assessment & Plan (07/24/2020 2:05 PM ENFORCEMENT OFFICER): Blood pressure at goal Continue lisinopril Assessment & Plan (05/28/2020 1:50 PM ENFORCEMENT OFFICER): BP borderline Continue 10mg lisinopril Continue to monitor Assessment & Plan (04/30/2020 12:32 PM ENFORCEMENT OFFICER): BP borderline Continue 10mg lisinopril Continue to [...] 08/30/2019 Assessment & Plan (07/14/2024 2:31 PM ENFORCEMENT OFFICER): Controlled. Continue as per Endocrine and PCP Assessment & Plan (07/14/2024 8:50 AM ENFORCEMENT OFFICER): Following with endocrine, reviewed note Holding insulin [...] +SSI Assessment & Plan (07/24/2023 1:49 PM ENFORCEMENT OFFICER): Lab Results Component Value Date HGBA1C 8.1 [...] trulicity Assessment & Plan (08/14/2022 10:42 AM ENFORCEMENT OFFICER): Following with endocrine Continue lantus, 12 units humalog TIDAC & 1.5mg trulicity Assessment & Plan (06/09/2022 3:32 PM ENFORCEMENT OFFICER): Following with endocrine Home blood sugar at [...] as she had discussed this with outpatient crepe laminator operator - repeat A1c - resume home statin, not currently on feliciano due to kidney function Assessment & Plan (08/05/2021 10:35 AM ENFORCEMENT OFFICER): Continue 15 units lantus twice a day Assessment & Plan (07/03/2021 7:24 AM ENFORCEMENT OFFICER): Fasting blood sugar significantly improved Risperidone changed Continue current meds Continue to monitor Assessment & Plan (06/18/2021 11:22 AM ENFORCEMENT OFFICER): Increase lantus to 60 units nightly, if blood sugar still above goal after 1 week split into 33 units twice a day Follow up with blood sugar via portal in 2 weeks Continue jardiance 25mg Continue trulicity 4.5mg weekly Assessment & Plan (05/28/2021 4:58 PM ENFORCEMENT OFFICER): Increase lantus to 55 units nightly Continue [...] weekly Assessment & Plan (08/28/2020 1:00 PM ENFORCEMENT OFFICER): DM Care Plan: Meds: Lantus - continue [...] recheck Assessment & Plan (07/24/2020 2:05 PM ENFORCEMENT OFFICER): Formulary change 2/2 insurance, switched to trulicity. Will increase to 1.5mg Assessment & Plan (05/28/2020 1:50 PM ENFORCEMENT OFFICER): Check a1c Sixto isn't checking blood sugar regularly, but when she is she has several >200 so I lean towards increasing if a1c>7 Assessment & Plan (04/30/2020 12:31 PM ENFORCEMENT OFFICER): Blood sugar improved on 40 units basaglar [...] was in the room. Recently treated at [facility] for PNA with prolonged course of antibiotics: [...] was in the room. Recently treated at [facility] for PNA with prolonged course of antibiotics: [...] was in the room. Recently treated at [facility] for PNA with prolonged course of antibiotics: [...] was in the room. Recently treated at [facility] for PNA with prolonged course of antibiotics: [...] was in the room. Recently treated at [facility] for PNA with prolonged course of antibiotics: [...] was in the room. Recently treated at [facility] for PNA with prolonged course of antibiotics: [...] was in the room. Recently treated at [facility] for PNA with prolonged course of antibiotics: [...] was in the room. Recently treated at [facility] for PNA with prolonged course of antibiotics: [...] was in the room. Recently treated at [facility] for PNA with prolonged course of antibiotics: [...] was in the room. Recently treated at [facility] for PNA with prolonged course of antibiotics: [...] 11/10/2023 Assessment & Plan (08/14/2022 10:44 AM ENFORCEMENT OFFICER): Continue eliquis Assessment & Plan (06/09/2022 3:36 PM ENFORCEMENT OFFICER): Continue eliquis Assessment & Plan (04/02/2022 6:05 [...] 10/10/2022 Assessment & Plan (08/07/2021 3:30 PM ENFORCEMENT OFFICER): Subacute, persistent, hospitalized recently. She is alert [...] Impression: Patient recently had MRI performed at [facility] which revealed acute osteomyelitis to the [...] 08/28/2020 Assessment & Plan (05/28/2020 1:52 PM ENFORCEMENT OFFICER): Encouraged to follow up with wound clinic for reassessment Assessment & Plan (04/30/2020 12:31 PM ENFORCEMENT OFFICER): Following with wound clinic Assessment & Plan [...] acute osteomyelitis on recent MRI performed at [facility]. She is being treated with antibiotic [...] nightly Assessment & Plan (08/14/2022 10:42 AM ENFORCEMENT OFFICER): Continue lyrica 150mg nightly Assessment & Plan (06/09/2022 3:32 PM ENFORCEMENT OFFICER): Continue lyrica 150mg nightly Assessment & Plan [...] status. Assessment & Plan (05/28/2021 4:58 PM ENFORCEMENT OFFICER): Continue lyrica 150mg nightly Assessment & Plan [...] gabapentin Assessment & Plan (08/28/2020 1:00 PM ENFORCEMENT OFFICER): On gabapentin Assessment & Plan (07/24/2020 2:05 PM ENFORCEMENT OFFICER): Continue gabapentin Assessment & Plan (04/02/2020 1:22 [...] Care Team Description 09/22/19 25 Nurse Triage [facility] Primary Care at [address] [place] [address] Cherelle Corcoran MD 09/15/19 25 Results [facility] Gastro[facility]ology at [address] [place] [address] Jaya Grier MD 09/14/19 9:19 AM CDT Anesthesia Event [facility] GI Lab [address] [place] [address] Sarahy Hernandez MD 09/14/19 8:00 AM CDT - 09/14/19 8:30 AM CDT Surgery [facility] GI Lab [address] [place] [address] Jaya Grier MD ESOPHAGOGASTRODUODENOSCOPY BIOPSY 09/14/19 7:54 AM CDT - 09/14/19 10:32 AM CDT Hospital Encounter [facility] GI Lab [address] [place] [address] Jaya Grier MD Ulcer of esophagus without bleeding; Gastroesophageal reflux disease without esophagitis Discharge Disposition: Discharge to home or self care 09/09/19 9:00 AM CDT [facility] [address] [place] [address] Brook Muhammad NP Myofascial pain syndrome, cervical (Primary Dx); Chronic neck pain; Foraminal stenosis of cervical region, diffuse bilateral; Arthropathy of cervical facet joint; DDD (degenerative disc disease), cervical, C3-C4 through C6-C7; Cervical spinal osteophytosis, multilevel 09/01/19 2:15 PM CDT Office Visit [facility] Cardiology [address] [place] [phone] Santo Vail MD Dyspnea, unspecified type (Primary Dx) 08/23/19 8:20 AM ENFORCEMENT OFFICER Office Visit [facility] Endocrinology Metabolism and Lipid [address] [place] [address] Smith Gibbs MD Type 2 diabetes mellitus with diabetic nephropathy, with long-term current use of insulin (HCC) (Primary Dx); Type 2 diabetes mellitus with diabetic neuropathy, with long-term current use of insulin (HCC); Mixed hyperlipidemia; ESRD on hemodialysis (HCC); Primary hypertension 08/18/19 8:15 AM ENFORCEMENT OFFICER Telemedicine [facility] Behavioral Health [address] [place] [phone] Adryan Swenson MD Schizoaffective disorder, bipolar type (HCC) (Primary Dx) 08/17/19 25 Telephone [facility] Primary Care at [address] [place] [phone] Cherelle Corcoran MD Medical Question/Miscellaneous 08/02/19 25 [facility] ED Outreach [facility] Care Organization [address] [place] [address] Felicia Garcia MA 08/02/19 25 Nurse Triage [facility] Primary Care at [address] [place] [phone] Cherelle Corcoran MD 07/31/19 9:25 PM ENFORCEMENT OFFICER - 07/31/19 10:27 PM ENFORCEMENT OFFICER Emergency [facility] Emergency Department [address] [place] [address] Discharge Disposition: Left without being seen 07/27/19 25 Orders Only [facility] Endocrinology Metabolism and Lipid [address] 13th [place] [address] [place] [address] Joe Ballard MD 07/21/19 25 Telephone [facility] D[facility] Access Center at [facility] [address] [place] [address] Varsha Oneill RN 07/18/19 25 2:45 PM ENFORCEMENT OFFICER Office Visit [facility] Primary Care at [address] [place] [phone] Cherelle Corcoran MD Fall, subsequent encounter (Primary Dx); Neck pain; Pressure injury of buttock, stage 1, unspecified laterality 07/18/19 25 Orders Only [facility] Gastroenterology at [place] [address] [place] [phone] Jaya Grier MD Ulcer of esophagus without bleeding (Primary Dx) 07/15/19 2:30 PM ENFORCEMENT OFFICER - 07/15/19 11:59 PM ENFORCEMENT OFFICER Hospital Encounter [facility] Dialysis Access Center at [facility] [address] [place] [address] ESRD (end stage renal diseas e) on dialysis (HCC) (Primary Dx) Discharge Disposition: Discharge to home or self care 07/15/19 10:00 AM ENFORCEMENT OFFICER - 07/15/19 11:00 AM ENFORCEMENT OFFICER Surgery [facility] Cardiac Project Designer [address] [place] [address] Edgardo Kauffman MD PERMACATH EXCHANGE [10713 (CPT )] 07/15/19 9:13 AM ENFORCEMENT OFFICER - 07/15/19 1:20 PM ENFORCEMENT OFFICER Hospital Encounter [facility] Cardiac Project Designer [address] [place] [address] Edgardo Kauffman MD ESRD (end stage renal disease) on dialysis (HCC) Discharge Disposition: Discharge to home or self care 07/14/19 12:35 PM ENFORCEMENT OFFICER - 07/14/19 11:59 PM ENFORCEMENT OFFICER Hospital Encounter [facility] Diagnostic Imaging [address] [place] [address] Discharge Disposition: Discharge to home or self care 07/14/19 12:11 PM ENFORCEMENT OFFICER - 07/14/19 11:59 PM ENFORCEMENT OFFICER Hospital Encounter [facility] Dialysis Access Center at [address] [address] ESRD (end stage renal diseas e) on dialysis (HCC) (Primary Dx); Type 2 diabetes mellitus with diabetic neuropathy, with long-term current use of insulin (HCC); Hypertension associated with diabetes (HCC); ESRD on hemodialysis (HCC); Hyperlipidemia associated with type 2 diabetes mellitus (HCC) Discharge Disposition: Discharge to home or self care 07/13/19 11:03 AM ENFORCEMENT OFFICER Anesthesia Event [facility] GI Lab [address] [place] [address] Larry Valdivia MD 07/13/19 9:00 AM ENFORCEMENT OFFICER - 07/13/19 9:30 AM ENFORCEMENT OFFICER Surgery [facility] GI Lab [address] [place] [address] Jaya Grier MD ESOPHAGOGASTRODUODENOSCOPY BIOPSY 07/13/19 8:39 AM ENFORCEMENT OFFICER - 07/13/19 12:26 PM ENFORCEMENT OFFICER Hospital Encounter [facility] GI Lab [address] [place] [address] Jaya Grier MD Anemia, unspecified type; Gastritis without bleeding, unspecified chronicity, unspecified gastritis type; Gastritis, presence of bleeding unspecified, unspecified chronicity, unspecified gastritis type Discharge Disposition: Discharge to home or self care 07/13/19 Nurse Triage [facility] Primary Care at [address] [phone] Cherelle Corcoran MD 07/13/19 JOY ED Outreach [address] [address] Ale Goldstein MA 07/12/19 11:16 AM ENFORCEMENT OFFICER - 07/12/19 3:44 PM ENFORCEMENT OFFICER Emergency [facility] Emergency Department [address] [place] [address] Fall, initial encounter (Primary Dx); Acute cystitis without hematuria Discharge Disposition: Discharge to home or self care 07/12/19 Telephone [facility] Primary Care at [address] [phone] Cherelle Corcoran MD Medical Question/Miscellaneous 07/11/19 Nurse Triage [facility] Primary Care at [address] [address] Cherelle Corcoran MD 07/08/19 1:00 PM ENFORCEMENT OFFICER [facility] [facility] at [address] [address] Cherelle Corcoran MD Altered mental status, unspecified [...] disease without esophagitis; Frailty 07/07/19 3:00 PM ENFORCEMENT OFFICER Office Visit [facility] Cardiology [address] [facility] [place] [phone] Santo Vail MD Dyspnea, unspecified type (Primary Dx) 07/07/19 1:30 PM ENFORCEMENT OFFICER Office Visit [facility] Endocrinology Metabolism and Lipid [address] [place] [address] Medical Office Building [address], [address] [place] [address] Pippa Troy NP Type 2 diabetes mellitus with diabetic nephropathy, with long-term current use of insulin (HCC) (Primary Dx); Dyslipidemia; Primary hypertension 07/04/19 25 Telephone [facility] Primary Care at [address] [place] [address] Cherelle Corcoran MD JOY Questions 06/27/19 Nurse Triage [facility] Primary Care at [address] [place] [phone] Cherelle Corcoran MD from Last 3 Months [...] materials from doctor or pharmacy Often 01/20/2024 [facility] Utilities Answer Date Recorded In the [...] a nursing home (including now)? No 10/30/2023 PHQ-9 Answer [...] time in the past 12 m [facility], were you homeless or living in a nursing home (including now)? No 04/20/2024 Personal Safety Answer Date Recorded Have you ever been in or are you currently in a harmful physical or emotional relationship or is someone making you feel afraid or unsafe? Denies 09/13/2024 Comments No Sex and Gender Information Value Date Recorded Sex Assigned at Not on file Legal Sex Female 9:03 AM ENFORCEMENT OFFICER Gender Identity Female 02/08/2020 6:39 PM [...] history exists Medical Devices Implanted Type Area Director Education Device Identifier Shelf Expiration Date Model / Serial / Lot [facility] [employer] Duramax Vascpak Safesheath D-Pro 15.5fr 24cm Kit Catheter [id number] - [id number] Implanted:Qty: 1 on 10/15/2023 at [facility] [employer] 10/19/2025 [id number] 85 / / [id number] [facility] [employer] Duraflow Embosafe 15.5fr 24cm Basic 2 Lumen Kit Catheter [id number] - [id number] Implanted:Qty: 1 on 07/15/2024 by Edgardo Kauffman MD at [facility] [employer] 08/19/2026 [id number] 15 / / [id number] Procedures Procedure Name Priority Date/Time Associated Diagnosis Comments POCT GLUCOSE DEVICE Routine 09/13/2024 9:47 AM CDT SURGICAL PATHOLOGY Routine 09/13/2024 9:28 AM CDT Ulcer of esophagus without bleeding ESOPHAGOGASTRODUODENOSCOPY BIOPSY 09/13/2024 9:20 AM CDT Ulcer of esophagus without bleeding EGD 09/13/2024 9:17 AM CDT POC BLOOD GAS AND CHEMISTRIE S, VENOUS Routine 09/13/2024 8:54 AM CDT WA INJECTION SINGLE/EXERCISE INSTRUCT TRIGGER POINT 1/2 MUSCLES Routine 09/08/2024 9:00 AM CDT Myofascial pain syndrome, cervical CT HEAD WO CONTRAST Schedule Routine, Read Routine (OP Routine) 09/07/2024 POCT HEMOGLOBIN A1C Routine 08/22/2024 8:55 AM ENFORCEMENT OFFICER Type 2 diabetes mellitus with diabetic nephropathy, with long-term current use of insulin (HCC) RESPIRATORY PATHOGEN PANEL STAT 07/31 1:02 PM ENFORCEMENT OFFICER DIABETIC EYE EXAM Routine 07/27/2024 12:37 PM ENFORCEMENT OFFICER HM DIABETES EYE EXAM Routine 07/22/2024 XR CHEST 1 VIEW ED Urgent/IP Urgent 07/15/2024 1:11 PM ENFORCEMENT OFFICER RPL DRE CVC W/O PUMP [id number] Routine 07/15 12:40 PM ENFORCEMENT OFFICER ESRD (end stage renal disease) on dialysis (HCC) XR CHEST 1 VIEW ED Urgent/IP Urgent 07/14/2024 1:16 PM ENFORCEMENT OFFICER EGFR STAT 07/14/2024 12:34 PM ENFORCEMENT OFFICER DIFFERENTIAL AUTO STAT 07/14/2024 12:34 PM ENFORCEMENT OFFICER BASIC METABOLIC PANEL STAT 07/14/2024 12:34 PM ENFORCEMENT OFFICER CBC WITH AUTO DIFFERENTIAL STAT 07/14 12:34 PM ENFORCEMENT OFFICER SURGICAL PATHOLOGY Routine 07/13/2024 11:10 AM ENFORCEMENT OFFICER Anemia, unspecified type Gastritis without bleeding, unspecified chronicity, unspecified gastritis type ESOPHAGOGASTRODUODENOSCOPY BIOPSY 07/13/2024 11:03 AM ENFORCEMENT OFFICER Anemia, unspecified type Gastritis without bleeding, unspecified chronicity, unspecified gastritis type EGD 07/13/2024 10:59 AM ENFORCEMENT OFFICER POC BLOOD GAS AND CHEMISTRIE S, VENOUS Routine 07/13/2024 10:12 AM ENFORCEMENT OFFICER TROPONIN T HIGH-SENSITIVITY 2-HOUR Timed 07/12/2024 1:59 PM ENFORCEMENT OFFICER URINALYSIS, MICROSCOPIC ONLY STAT 1:05 PM ENFORCEMENT OFFICER DRUGS OF ABUSE SCREEN, URINE WITHOUT CONFIRMATION STAT 07/12/2024 1:05 PM ENFORCEMENT OFFICER URINE CULTURE STAT 07/12/2024 1:05 PM ENFORCEMENT OFFICER URINALYSIS AND REFLEX TO MICROSCOPIC AND CULTURE STAT 07/12/2024 1:05 PM ENFORCEMENT OFFICER THYROID FUNCTION CASCADE STAT 025 11:53 AM ENFORCEMENT OFFICER EGFR STAT 07/12/2024 11:53 AM ENFORCEMENT OFFICER DIFFERENTIAL AUTO STAT 07/12/2024 11:53 AM ENFORCEMENT OFFICER TROPONIN T HIGH-SENSITIVITY SERIES (BASELINE, 2HR, 4HR, 6HR) STAT 07/12/2024 11:53 AM ENFORCEMENT OFFICER CBC WITH AUTO DIFFERENTIAL STAT 07/12 11:53 AM ENFORCEMENT OFFICER COMPREHENSIVE METABOLIC PANEL STAT 11:53 AM ENFORCEMENT OFFICER INFLUENZA A/B, RSV, AND COVID-19 PCR Routine 07/12/2024 11:53 AM ENFORCEMENT OFFICER ECG 12-LEAD STAT 07/12/2024 11:[address] FACIAL BONES WO CONTRAST ED 06/23 10:[address] CERVICAL SPINE WO CONTRAST ED 10:[address] HEAD WO CONTRAST ED 07/12/2024 10:38 AM ENFORCEMENT OFFICER XR SHOULDER RIGHT 2 OR MORE VIEWS ED 07/12/2024 10:08 AM ENFORCEMENT OFFICER XR SHOULDER LEFT 2 OR MORE VIEWS ED 07/12/2024 10:08 AM ENFORCEMENT OFFICER POCT GLUCOSE DEVICE Routine 07/12/2024 9:33 AM ENFORCEMENT OFFICER LIPID PANEL Routine 05/16/2024 10:14 AM ENFORCEMENT OFFICER Mixed hyperlipidemia COLONOSCOPY 03/01/2024 8:49 AM CDT [...] ORDERABLES - DEVICE Fin al Result CERNER [address] Department [place] [address] * Surgical pathology (09/13/2024 9:28 AM CDT) Tissue specimen (specimen) (Esophageal biopsy) 09/13/2024 9:28 AM CDT Comment:Cold bx Narrative PATHOLOGY [facility] - 09/14/2024 1:55 PM CDT [facility] Department of Pathology [address] [place] [address] Note to Patients: This report may contain [...] : 1950 (Age: 73) Gender: F Address: [address] [place] [address] Hospital #: [id number] Service: Gastro Location: Patient Type: [facility] Taken: 09/13/2024 Received: 09/13/2024 Accessioned: 09/13/2024 [...] cm. Entirely submitted. Labeled A1. Jar 0. [facility]/09/13/2024 13:20 CAMILA Johnson, PA (ASCP) Microscopic slide review and interpretation for this case was performed at [facility], Department of Surgical Pathology, [address] [facility] [address], [id number], [place] [address] CLIA # [id number] us Jaya Grier MD LAB PATHOLOGY ORDERABLES Final R esult PATHOLOGY [facility] * EGD (09/13/2024 9:17 AM CDT) Anatomical Region Laterality Modality Other Narrative Procedure Note Jaya Grier MD - 09/13/2024 9:17 AM CDT [facility] GI ENDOSCOPY Patient Name: Sixto Chakraborty Procedure Date: 09/13/2024 9:17 AM Date of : 1950 Admit Type: Outpatient Age: 73 Gender: Female Attending MD: Jaya Grier M.D. Room: [facility] ENDOSCOPY ROOM 03 Note Status: Finalized Procedure: [...] cold forceps for evaluation to rule out Brayn's Esophagus. A 2 cm hiatal hernia was [...] On: 09/13/2024 9:17 AM Recognized by the [place] for promoting quality in endoscopy us Jaya Grier MD ENDOSCOPY PROCEDURES Final Resul t * (ABNORMAL) POC Blood Gas and Chemistries, Venous - (09/13/2024 8:54 AM CDT) pH,chris POC 7.34 7.32 - 7.43 pCO2, chris POC 51(H) 40 - 50 mmHg [facility] pO2,chris POC 22 mmHg [facility] Comment: Interpretive Data No reference range established. Current interpretive data was last revised 2020. HCO3, chris (Calc) POC 27 20 - 30 mmol/L [facility] Base excess, chris POC 1 mmol/L [facility] Comment: Interpretive Data No reference range established. Current interpretive data was last revised 2020. Hemoglobin, chris POC 10.9(L) 11.9 - 15.5 g/dL [facility] Hematocrit, chris POC 32.0(L) 35.6 - 45.5 % [facility] Sodium, chris POC 141 135 - 145 mmol/L [facility] Potassium, chris POC 4.4 3.3 - 4.9 mmol/L [facility] Comment: Interpretive Data This method is not able to assess for hemolysis, which may falsely increase potassium concentrations. If further testing is needed to evaluate this result, consider in-laboratory plasma potassium. Current Interpretive Data was last revised on 2022. Glucose, chris POC 170 70 - 199 mg/dL [facility] Ionized Calcium, chris POC 4.90 4.50 - 5.10 mg/dL [facility] Blood 09/13/2024 8:54 AM CDT 09/13/2024 8:54 AM CDT Jaya Grier MD LAB POCT ORDERABLES - DEVICE Antonio al Result CERN[facility] [address] [facility] Department [place] [address] * WA INJECTION SINGLE/EXERCISE INSTRUCT TRIGGER POINT 1/2 MUSCLES (09/08/2024 9:00 AM [...] well with no immediate complications Brook Muhammad DIRECTOR STARS IN CLINIC/BEDSIDE ORDERABLE S Final Result * CT Head WO Contrast (09/07/2024) Anatomical Region Laterality Modality Head and Neck N/A Computed Tomogra phy Historical Provider IMG CT PROCEDURES Final R esult * POCT hemoglobin A1c (08/22/2024 8:55 AM ENFORCEMENT OFFICER) Hemoglobin A1C, POC 7.7 4.0 - 5.6 % Blood 08/22/2024 8:55 AM ENFORCEMENT OFFICER Smith Gibbs MD POINT OF CARE TEST ORDERABLE S Final Result * Respiratory pathogen panel Nasopharyngeal (07/31/2024 1:02 PM ENFORCEMENT OFFICER) Influenza A RNA Not Detected Not Detected [...] 3 RNA Not Detected Not Detected [facility] Parainfluenza 4 RNA Not Detected Not Detected [facility] B. pertussis DNA Not Detected Not Detected [facility] B. parapertussis DNA Not Detected Not Detected [facility] C. pneumoniae DNA Not Detected Not Detected [facility] M. pneumoniae DNA Not Detected Not Detected [facility] Comment: Interpretive Data [employer] FilmArray Respiratory Panel (RP2.1) assay is a [...] assay has FDA clearance for testing of DIRECTOR STARS swabs. The performance characteristics of this assay have been determined by [facility]. Current interpretive data was last revised on 2021. Nasopharyngeal 07/31/2024 1: 02 PM ENFORCEMENT OFFICER 07/31/2024 1:05 PM ENFORCEMENT OFFICER Narrative NILSA - 07/31/2024 2:05 PM ENFORCEMENT OFFICER Is the Patient experiencing symptoms consistent with COVID?->Yes Surveillance testing for transplant patient?->No Lucy Lucero MD LAB MICROBIOLOGY - [facility] ORDERABLES Final Result [facility] [address] [address] Department [place] [address] * Diabetic Eye Exam (07/27/2024 12:37 PM ENFORCEMENT OFFICER) Historical Provider HEALTH MAINTENANCE Final Result * HM DIABETES EYE EXAM (07/22/2024) Historical Provider HEALTH MAINTENANCE Final Result * XR Chest 1 View (07/15/2024 1:11 PM ENFORCEMENT OFFICER) Anatomical Region Laterality Modality Body, Chest N/A Computed Radiogr aphy 07/15/2024 1:35 PM ENFORCEMENT OFFICER Narrative 07/15/2024 1:36 PM ENFORCEMENT OFFICER EXAM DESCRIPTION: XR CHEST 1 VIEW REASON [...] Yosef Lindo D.O. PS T: Report ID: [id number] Reading Location: [id number] Procedure Note Yosef Lindo, DO - 07/15/2024 [...] Yosef Lindo D.O. PS T: Report ID: [id number] Reading Location: [id number] us Edgardo Kauffman MD IMG XR PROCEDURES Final Re sult * RPL DRE CVC W/O PUMP [id number] (07/15/2024 12:40 PM ENFORCEMENT OFFICER) Anatomical Region Laterality Modality X-Ray Angiograph y Narrative 07/15/2024 12:45 PM ENFORCEMENT OFFICER Please see OpNote for result. us Edgardo Kauffman MD CV CARDIAC CATH PROCEDURES Final Result * XR Chest 1 View (07/14/2024 1:16 PM ENFORCEMENT OFFICER) Anatomical Region Laterality Modality Body, Chest N/A Computed Radiogr aphy 07/14/2024 1:20 PM ENFORCEMENT OFFICER Narrative 07/14/2024 1:22 PM ENFORCEMENT OFFICER EXAM DESCRIPTION: XR CHEST 1 VIEW REASON [...] Salvador Villa M.D. KR T: Report ID: [id number] Reading Location: [id number] Procedure Note Salvador Villa MD - 07/14/2024 [...] Salvador Villa M.D. KR T: Report ID: [id number] Reading Location: [place] [address] Edgardo Kauffman MD IMG XR PROCEDURES Final Re sult * (ABNORMAL) eGFR (07/14/2024 12:34 PM ENFORCEMENT OFFICER) eGFR 7(L) >=60 mL/min/1. 73 m2 Comment: [...] reviewed 2021. Blood 07/14/2024 12:3 4 PM ENFORCEMENT OFFICER 07/14/2024 12:41 PM ENFORCEMENT OFFICER us Edgardo Kauffman MD LAB BLOOD ORDERABLES Final Result NILSA [address] [facility] Department [place] [address] * (ABNORMAL) Differential, auto (07/14/2024 12:34 PM ENFORCEMENT OFFICER) Neutrophil abs 7.8(H) 1.5 - 6.5 K/cumm Imm gran abs 0.0 0.0 - 0.1 K/cumm [facility] Lymphocyte abs 1.5 0.8 - 3.3 K/cumm [facility] Monocyte abs 0.5 0.2 - 0.8 K/cumm [facility] Eosinophil abs 0.2 0.0 - 0.5 K/cumm [facility] Basophil abs 0.0 0.0 - 0.1 K/cumm [facility] Neutrophil pct 78.1 % [facility] Comment: Interpretive Data [...] revised on 2017. Lymphocyte pct 14.8 % [facility] Comment: Interpretive Data Percent cell count reference ranges are not reported, since discordance with absolute values may lead to misinterpretation of CBC data. Current Interpretive Data was last revised on 2017. Monocyte pct 4.7 % [facility] Comment: Interpretive Data Percent cell count reference ranges are not reported, since discordance with absolute values may lead to misinterpretation of CBC data. Current Interpretive Data was last revised on 2017. Eosinophil pct 1.6 % [facility] Comment: Interpretive Data Percent cell count reference ranges are not reported, since discordance with absolute values may lead to misinterpretation of CBC data. Current Interpretive Data was last revised on 2017. Basophil pct 0.4 % [facility] Comment: Interpretive Data Percent cell count reference ranges are not reported, since discordance with absolute values may lead to misinterpretation of CBC data. Current Interpretive Data was last revised on 2017. Blood 07/14/2024 12:3 4 PM ENFORCEMENT OFFICER 07/14/2024 12:41 PM ENFORCEMENT OFFICER Edgardo Kauffman MD LAB BLOOD ORDERABLES Final Result Performing Organization Address [facility] Co de Phone Number NILSA [address] [address] * (ABNORMAL) CBC with auto differential (07/14/2024 12:34 PM ENFORCEMENT OFFICER) [facility] WBC 9.9 3.8 - 9.9 K/cumm Hgb 11.6(L) 11.9 - 15.5 g/dL [facility] Hct 35.3(L) 35.6 - 45.5 % [facility] Plt 241 150 - 400 K/cumm [facility] MPV 11.0 9.1 - 12.3 fL [facility] RBC 3.63(L) 3.90 - 5.20 M/cumm [facility] MCV 97.2(H) 81.3 - 96.4 fL [facility] MCH 32.0 27.1 - 33.3 pg [facility] MCHC 32.9 32.3 - 35.7 g/dL [facility] RDW CV 15.4(H) 11.1 - 14.9 % [facility] RDW SD 54.8(H) 35.7 - 48.1 fL [facility] NRBC abs 0.00 0.00 - 0.01 K/cumm [facility] Blood 07/14/2024 12:3 4 PM ENFORCEMENT OFFICER 07/14/2024 12:41 PM ENFORCEMENT OFFICER Edgardo Kauffman MD LAB BLOOD ORDERABLES Final Result Performing Organization Address [facility] Co de Phone Number NILSA [address] [place] [address] * (ABNORMAL) Basic metabolic panel (07/14/2024 12:34 PM ENFORCEMENT OFFICER) [facility] Sodium 138 135 - 145 mmol/L Potassium, pl 4.1 3.3 - 4.9 mmol/L [facility] Comment:Hemolyzed; Potassium value may be falsely elevated by as much as 1.0 mmol/L. Suggest redraw and reanalysis. Chloride 100 97 - 110 mmol/L [facility] CO2 25 22 - 32 mmol/L [facility] Anion gap 13 2 - 15 mmol/L [facility] BUN 51(H) 6 - 25 mg/dL [facility] Creatinine 6.22(H) 0.60 - 1.10 mg/dL [facility] Glucose 155 70 - 199 mg/dL [facility] [...] 2022. Calcium 9.4 8.5 - 10.3 mg/dL [facility] Blood 07/14/2024 12:3 4 PM ENFORCEMENT OFFICER 07/14/2024 12:41 PM ENFORCEMENT OFFICER us Edgardo Kauffman MD LAB BLOOD ORDERABLES Final Result [address] Department [place] [address] * Surgical pathology (07/13/2024 11:10 AM ENFORCEMENT OFFICER) Tissue specimen (specimen) (Duodenum, Biopsy) 07/13/2024 11:10 AM ENFORCEMENT OFFICER Tissue specimen (specimen) (Gastric/Stomach biopsy) 07/13/2024 11:11 AM ENFORCEMENT OFFICER Tissue specimen (specimen) (Gastric/Stomach biopsy) 07/13/2024 11:11 AM ENFORCEMENT OFFICER Tissue specimen (specimen) (Esophageal biopsy) 07/13/2024 11:13 AM ENFORCEMENT OFFICER Narrative PATHOLOGY [facility] - 07/14/2024 1:59 PM ENFORCEMENT OFFICER [facility] Department of Pathology [address] [place] [address] Note to Patients: This report may contain [...] : 1950 (Age: 73) Gender: F Address: [address] [place] [address] [facility] Center #: [id number] Service: Gastro Location: Patient Type: [facility] Taken: 07/13/2024 Received: 07/13/2024 Accessioned: 07/13/2024 [...] C. Labeled distal esophageal biopsy rule out Brayn's esophagus and consists of two cowan-pink tissue fragments each measuring 0.2 cm. Entirely submitted. Labeled C1. Jar 0. D. Labeled distal esophageal ulcer and consists of two cowan-white tissue fragments each measuring 0.4 cm. Entirely submitted. Labeled D1. Jar 0. [facility]/07/13/2024 13:31 CAMILA Johnson, PA (ASCP) Microscopic slide review and interpretation for this case was performed at [facility], Department of Surgical Pathology, [address] [facility], [id number], [place] [address] CLIA # [id number] us Jaya Grier MD LAB PATHOLOGY ORDERABLES Final R esult PATHOLOGY [facility] * EGD (07/13/2024 10:59 AM ENFORCEMENT OFFICER) Anatomical Region Laterality Modality Other Narrative Procedure Note Jaya Grier MD - 07/13/2024 10:59 AM CST [facility] GI ENDOSCOPY Patient Name: Sixto Chakraborty Procedure Date: 07/13/2024 10:59 AM Date of : 1950 Admit Type: Outpatient Age: 73 Gender: Female Attending MD: Jaya Grier M.D. Room: [facility] ENDOSCOPY ROOM 06 Note Status: [...] On: 07/13/2024 10:59 AM Recognized by the [employer] for promoting quality in endoscopy Jaya Grier MD ENDOSCOPY PROCEDURES Final Resul t * (ABNORMAL) POC Blood Gas and Chemistries, Venous - (07/13/2024 10:12 AM ENFORCEMENT OFFICER) pH,chris POC 7.40 7.32 - 7.43 pCO2, chris POC 49 40 - 50 mmHg [facility] pO2,chris POC 36 mmHg [facility] Comment: Interpretive Data No reference range established. Current interpretive data was last revised 2020. HCO3, chris (Calc) POC 30 20 - 30 mmol/L [facility] Base excess, chris POC 4 mmol/L [facility] Comment: Interpretive Data No reference range established. Current interpretive data was last revised 2020. Hemoglobin, chris POC 13.9 11.9 - 15.5 g/dL [facility] Hematocrit, chris POC 41.0 35.6 - 45.5 % [facility] Sodium, chris POC 134(L) 135 - 145 mmol/L [facility] Potassium, chris POC 4.6 3.3 - 4.9 mmol/L [facility] Comment: Interpretive Data This method [...] mg/dL NILSA Blood 07/13/2024 10:1 2 AM ENFORCEMENT OFFICER 07/13/2024 10:12 AM ENFORCEMENT OFFICER Jaya Grier MD LAB POCT ORDERABLES - DEVICE Fin al Result Performing Organization Address [facility] Co de Phone Number [facility] [address] [place] [address] [place] [address] * (ABNORMAL) Troponin T high-sensitivity 2-hour (07/12/2024 1:59 PM ENFORCEMENT OFFICER) Trop T hs 63(H) <=14 ng/L Comment: Interpretive Data For further hscTnT resources including the diagnostic algorithm and an aid in interpretation, copy and paste this link: https://nrl.testcatalog.org/show/hsTrop Current Interpretive Data last revised 2020. Testing performed by: [address] [address] Trop T hs delta -5 ng/L NILSA Comment:Testing performed by : [address] [address] Trop T hs interp Equivocal NILSA Comment:Testing performed by : [address] [address] Blood 07/12/2024 1:59 PM ENFORCEMENT OFFICER 07/12/2024 2:20 PM ENFORCEMENT OFFICER Donna CUEVA LAB BLOOD ORDERABLES Final Re sult Performing Organization Address [facility]/ZIP Co de Phone Number [facility] [address] [place] [address] Department [place] [address] * (ABNORMAL) Urinalysis reflex to microscopic and culture Urine (07/12/2024 1:05 PM ENFORCEMENT OFFICER) Color, ur Mikayla Yellow Comment:Testing performed by : [facility], [address] [place] [address]., [address] Clarity, ur Turbid(A) Clear NILSA Comment:Testing performed by : [facility], [address] [place] [address], [place]., [address] Specific gravity, ur 1.006 1.003 - 1.030 NILSA Comment:Testing performed by : [address] [address] pH, urine 6.0 NILSA Comment: Interpretive Data U rine pH is affected by diet, medications, systemic acid-base disturbances, and renal tubular function. pH may affect urinary stone formation. For example, urine pH below 6.0 may help reduce the tendency for calcium phosphate stones and pH greater than 6.0 may reduce the tendency for uric acid stone formation. Source: [facility] [employer] Current Interpretive Data was last revised on 2017 Testing performed by: [address] [address] Protein, ur ql 2+(A) Negative NILSA Comment:Testing performed by : [address] [address] Glucose, ur ql 1+(A) Negative NILSA Comment:Testing performed by : [address] [address] Ketones, ur Negative Negative NILSA Comment:Testing performed by : [address] [address] Bilirubin, ur Negative Negative NILSA Comment:Testing performed by : [address] [address] Blood, ur 2+(A) Negative NILSA Comment:Testing performed by : [address] [address] Urobilinogen, ur <2.0 <2.0 mg/dL NILSA Comment:Testing performed by : [address] [address] Nitrite, ur Negative Negative NILSA Comment:Testing performed by : [address] [address] Leukocyte esterase, ur 4+(A) Negative NILSA RODRIGES Comment:Testing performed by : [address] [address] UA reflex comment Reflex to microscopic UA will be performed. NILSA RODRIGES Comment:Testing performed by : [facility], [address] [place] [address]., [address] Urine 07/12/2024 1:05 PM ENFORCEMENT OFFICER 07/12/2024 1:09 PM ENFORCEMENT OFFICER Donna CUEVA LAB MICROBIOLOGY - GENERAL OR DERABLES Final Result NILSA [address] [facility] Department [place] [address] * Drugs of Abuse Screen, Urine without Confirmation (07/12/2024 1:05 PM ENFORCEMENT OFFICER) Amphetamine, ur Not Detected CutOff 500ng/mL Comment: Interpretive Data - Amphetamines: Samples containing greater than 500 ng/mL d-methamphetamine or other cross-reacting amphetamine compounds are reported as positive. Amphetamine immunoassays are subject to significant false positive rates due to cross-reactivity of non-amphetamine drugs. Confirmatory testing required for definitive results. Current Interpretive Data was last reviewed 2023. Testing performed by: [address] [address] Barbiturates, ur Not Detected CutOff 200ng/mL NILSA RODRIGES Comment: Interpretive Data - Barbiturates: Samples containing greater than 200 ng/mL secobarbital or other cross-reacting barbiturate compounds are reported as positive. False positive and false negative results are possible. Confirmatory testing required for definitive results. Current Interpretive Data was last reviewed 2023. Testing performed by: [address] [address] Benzodiazepines, ur Not Detected CutOff 100ng/mL NILSA RODRIGES Comment: Interpretive Data - Benzodiazepines: Samples containing greater than 100 ng/mL nordiazepam or other cross-reacting compounds are reported as positive. False positive and false negative results are possible. Confirmatory testing required for definitive results. Current Interpretive Data was last reviewed 2023. Testing performed by: [address] [address] Cannabinoids, ur Not Detected CutOff 50 ng/mL [facility] Comment: Interpretive Data - Cannabinoids: Samples containing greater than 50 ng/mL delta-9 THC -COOH or other cross- reacting compounds are reported as positive. False positive and false negative results are possible. Confirmatory testing required for definitive results. Current Interpretive Data was last reviewed 2023. Testing performed by: [address] [address] Cocaine, ur Not Detected CutOff 150ng/mL [facility] Comment: Interpretive Data - Cocaine: Samples containing greater than 150 ng/mL benzoylecgonine or other cross- reacting compounds are reported as positive. False positive and false negative results are possible. Confirmatory testing required for definitive results. Current Interpretive Data was last reviewed 2023. Testing performed by: [address], [place]., [address] Fentanyl, Ur Not Detected Cutoff 1 ng/mL [facility] Comment: Interpretive Data - Fentanyl: Samples containing greater than 1 ng/mL fentanyl or other cross-reacting fentanyl compounds are reported as positive. False positive and false negative results are possible. Confirmatory testing required for definitive results. Current Interpretive Data was last reviewed 2023. Testing performed by: [address] [address] Methadone, ur Not Detected CutOff 300ng/mL [facility] Comment: Interpretive Data - Methadone: Samples containing greater than 300 ng/mL d,l-methadone or other cross-reacting compounds are reported as positive. False positive and false negative results are possible. Confirmatory testing required for definitive results. Current Interpretive Data was last reviewed 2023. Testing performed by: [address] [address] Opiates, ur Not Detected CutOff 300ng/mL [facility] Comment: Interpretive Data - Opiates: Samples containing greater than 300 ng/mL morphine or other cross-reacting compounds are reported as positive. False positive and false negative results are possible. Confirmatory testing required for definitive results. Current Interpretive Data was last reviewed 2023. Testing performed by: [address] [address] Oxycodone, ur Not Detected CutOff 100ng/mL NILSA Comment: Interpretive Data - Oxycodone: Samples containing greater than 100 ng/mL oxycodone or other cross-reacting compounds are reported as positive. False positive and false negative results are possible. Confirmatory testing required for definitive results. Current Interpretive Data was last reviewed 2023. Testing performed by: [address] [address] Phencyclidine, ur Not Detected CutOff 25 ng/mL NILSA Comment: Interpretive Data - Phencyclidine: Samples containing greater than 25 ng/mL phencyclidine or other cross-reacting compounds are reported as positive. False positive and false negative results are possible. Confirmatory testing required for definitive results. Current Interpretive Data was last reviewed 2023. Testing performed by: [address] [address] Urine Creatinine 74 mg/dL NILSA Comment: Interpretive Data Urine Creatinine: < 10 mg/dL is extremely dilute = or > 10 but < 20 mg/dL is dilute = or > 20 mg/dL is normal Current Interpretive Data was last revised on 2017. Testing performed by: [address] [address] Urine 07/12/2024 1:05 PM ENFORCEMENT OFFICER 07/12/2024 1:09 PM ENFORCEMENT OFFICER Narrative [facility] - 07/12/2024 1:31 PM ENFORCEMENT OFFICER Drug of Abuse screening is performed by immunoassay for medical purposes only. This is not to be used for Pain Management purposes. us Donna CUEVA LAB URINE ORDERABLES Final Re sult NILSA [address] [facility] Department [place] [address] * (ABNORMAL) Urinalysis, microscopic only (07/12/2024 1:05 PM ENFORCEMENT OFFICER) WBC, ur >50(A) 0 - 5 /HPF Comment:Testing performed by : [address] [address] RBC, ur 11-20(A) 0 - 2 /HPF NILSA Comment:Testing performed by : [facility], [address] [place] [address]., [address] Bacteria, ur 4+(A) NILSA Comment:Testing performed by : [facility], [address] [place] [address]., [address] Culture Reflex Comment Reflex to urine culture will be performed. NILSA Comment:Testing performed by : [address] [address] Urine 07/12/2024 1:05 PM ENFORCEMENT OFFICER 07/12/2024 1:09 PM ENFORCEMENT OFFICER Donna CUEVA LAB URINE ORDERABLES Final Re sult NILSA RODRIGES [address] [facility] Department [place] [address] * (ABNORMAL) Urine culture Urine (07/12/2024 1:05 PM ENFORCEMENT OFFICER) Report Final Report: Greater than or equal to 100,000 colonies/mL of Escherichia coli (.) Comment:Testing performed by : [facility], [address] [place]., [address] Organism ESCHERICHIA COLI NILSA Urine 07/12/2024 1:05 PM ENFORCEMENT OFFICER 07/12/2024 3:03 PM ENFORCEMENT OFFICER Narrative NILSA - 07/14/2024 2:20 PM ENFORCEMENT OFFICER Urine culture reflexed based upon urinalysis results. Testing performed by [facility] ([phone]) Organism Antibiotic Method Susceptibility Escherichia coli Ampicillin [...] - GENERAL OR DERABLES Final Result NILSA [address] [place] [address] * (ABNORMAL) Troponin T high-sensitivity series (baseline, 2hr, 4hr, 6hr) (07/12/2024 11:53 AM ENFORCEMENT OFFICER) Pathologist [facility] Trop T hs 68(H) <=14 ng/L Comment: REDRAW: HEMOLYZED SPECIMEN Interpretive Data For further hscTnT resources including the diagnostic algorithm and an aid in interpretation, copy and paste this link: https://nrl.testcatalog.org/show/hsTrop Current Interpretive Data last revised 2020. Testing performed by: [address] [address] Blood 07/12/2024 11:5 3 AM ENFORCEMENT OFFICER 07/12/2024 11:58 AM ENFORCEMENT OFFICER Donna CUEVA LAB BLOOD ORDERABLES Final Re sult Performing Organization Address City/[facility]/ZIP Co de Phone Number NILSA [address] [place] [address] * Influenza A/B, RSV, and COVID-19 PCR Nasopharyngeal (07/12/2024 11:53 AM ENFORCEMENT OFFICER) [facility] COVID-19 RNA Negative Negative Comment:Testing performed by : [address] [address] Influenza A RNA Negative Negative NILSA Comment:Testing performed by : [address] [address] Influenza B RNA Negative Negative NILSA Comment:Testing performed by : [address] [address] RSV RNA Negative Negative NILSA Comment: Interpretive data: Testing performed by [facility]. This test is performed using the [employer] Xpress CoV-2/Flu/RSV plus assay. This is a multiplex, real-time reverse transcriptase PCR assay intended for the qualitative detection of nucleic acid from SARS-CoV-2, influenza A, influenza B, and respiratory syncytial virus. This assay has been cleared by the [place] Food and Drug administration. The performance characteristics have been verified by the [facility]. Results must be considered in the clinical context, and a negative result does not rule out infection. Interpretive Data last revised 2023 Testing performed by: [facility], [address] [place] [address]., [address] Nasopharyngeal 07/12/2024 11 :53 AM ENFORCEMENT OFFICER 07/12/2024 11:58 AM ENFORCEMENT OFFICER Narrative NILSA - 07/12/2024 12:38 PM ENFORCEMENT OFFICER Is the Patient experiencing symptoms consistent with COVID?->Unknown Donna CUEVA LAB MICROBIOLOGY - GENERAL OR DERABLES Final Result NILSA [address] [facility] Department [place] [address] * (ABNORMAL) eGFR (07/12/2024 11:53 AM ENFORCEMENT OFFICER) eGFR 10(L) >=60 mL/min/1. 73 m2 Comment: [...] was last reviewed 2021. Testing performed by: [facility], [address] [place] [address]., [address] Blood 07/12/2024 11:5 3 AM ENFORCEMENT OFFICER 07/12/2024 11:58 AM ENFORCEMENT OFFICER us Donna CUEVA LAB BLOOD ORDERABLES Final Re sult NILSA [address] [facility] Department [place] [address] * (ABNORMAL) Differential, auto (07/12/2024 11:53 AM ENFORCEMENT OFFICER) Neutrophil abs 9.2(H) 1.5 - 6.5 K/cumm Comment:Testing performed by : [address] [address] Imm gran abs 0.1 0.0 - 0.1 K/cumm NILSA Comment:Testing performed by : [address] [address] Lymphocyte abs 1.5 0.8 - 3.3 K/cumm NILSA Comment:Testing performed by : [address] [address] Monocyte abs 0.5 0.2 - 0.8 K/cumm NILSA Comment:Testing performed by : [address] [address] Eosinophil abs 0.1 0.0 - 0.5 K/cumm NILSA Comment:Testing performed by : [address] [address] Basophil abs 0.0 0.0 - 0.1 K/cumm NILSA Comment:Testing performed by : [address] [address] Neutrophil pct 81.0 % NILSA Comment: Interpretive Data Percent cell count reference ranges are not reported, since discordance with absolute values may lead to misinterpretation of CBC data. Current Interpretive Data was last revised on 2017. Testing performed by: [address] [address] Imm gran pct 0.4 % NILSA Comment: Interpretive Data Percent cell count reference ranges are not reported, since discordance with absolute values may lead to misinterpretation of CBC data. Current Interpretive Data was last revised on 2017. Testing performed by: [address] [address] Lymphocyte pct 13.4 % [facility] Comment: Interpretive Data Percent cell count reference ranges are not reported, since discordance with absolute values may lead to misinterpretation of CBC data. Current Interpretive Data was last revised on 2017. Testing performed by: [address] [address] Monocyte pct 4.2 % [facility] Comment: Interpretive Data Percent cell count reference ranges are not reported, since discordance with absolute values may lead to misinterpretation of CBC data. Current Interpretive Data was last revised on 2017. Testing performed by: [address] [address] Eosinophil pct 0.6 % [facility] Comment: Interpretive Data Percent cell count reference ranges are not reported, since discordance with absolute values may lead to misinterpretation of CBC data. Current Interpretive Data was last revised on 2017. Testing performed by: [address] [address] Basophil pct 0.4 % [facility] Comment: Interpretive Data Percent cell count reference ranges are not reported, since discordance with absolute values may lead to misinterpretation of CBC data. Current Interpretive Data was last revised on 2017. Testing performed by: [address] [address] Blood 07/12/2024 11:5 3 AM ENFORCEMENT OFFICER 07/12/2024 11:58 AM ENFORCEMENT OFFICER us Donna CUEVA LAB BLOOD ORDERABLES Final Re sult NILSA RODRIGES [address] [facility] Department [place] [address] * Thyroid Function [place] (07/12/2024 11:53 AM ENFORCEMENT OFFICER) TSH 1.22 0.30 - 4.20 mcIUnit/mL Comment:Testing performed by : [address] [address] Blood 07/12/2024 11:5 3 AM ENFORCEMENT OFFICER 07/12/2024 11:58 AM ENFORCEMENT OFFICER us Donna CUEVA LAB BLOOD ORDERABLES Final Re sult [facility] [address] [facility] Department [place] [address] * (ABNORMAL) CBC with auto differential (07/12/2024 11:53 AM ENFORCEMENT OFFICER) WBC 11.3(H) 3.8 - 9.9 K/cumm Comment:Testing performed by : [address] [address] Hgb 12.3 11.9 - 15.5 g/dL NILSA Comment:Testing performed by : [address] [address] Hct 37.2 35.6 - 45.5 % NILSA Comment:Testing performed by : [address] [address] Plt 230 150 - 400 K/cumm NILSA Comment:Testing performed by : [address] [address] MPV 10.7 9.1 - 12.3 fL NILSA Comment:Testing performed by : [address] [address] RBC 3.85(L) 3.90 - 5.20 M/cumm NILSA Comment:Testing performed by : [address] [address] MCV 96.6(H) 81.3 - 96.4 fL NILSA Comment:Testing performed by : [address] [address] MCH 31.9 27.1 - 33.3 pg NILSA RODRIGES Comment:Testing performed by : [address] [address] MCHC 33.1 32.3 - 35.7 g/dL NILSA RODRIGES Comment:Testing performed by : [address] [address] RDW CV 15.7(H) 11.1 - 14.9 % NILSA RODRIGES Comment:Testing performed by : [address] [address] RDW SD 55.5(H) 35.7 - 48.1 fL NILSA RODRIGES Comment:Testing performed by : [address] [address] NRBC abs 0.00 0.00 - 0.01 K/cumm NILSA RODRIGES Comment:Testing performed by : [address] [address] Blood 07/12/2024 11:5 3 AM ENFORCEMENT OFFICER 07/12/2024 11:58 AM ENFORCEMENT OFFICER us Donna CUEVA LAB BLOOD ORDERABLES Final Re sult NILSA [address] [facility] Department [place] [address] * (ABNORMAL) Comprehensive metabolic panel (07/12/2024 11:53 AM ENFORCEMENT OFFICER) Sodium 134(L) 135 - 145 mmol/L Comment:Testing performed by : [address] [address] Potassium, pl 4.6 3.3 - 4.9 mmol/L NILSA RODRIGES Comment: HEMOLYZED: Hemolysis interferes with the above test. Testing performed by: [address] [address] Chloride 93(L) 97 - 110 mmol/L NILSA Comment:Testing performed by : [address] [address] CO2 28 22 - 32 mmol/L NILSA RODRIGES Comment:Testing performed by : [address] [address] Anion gap 13 2 - 15 mmol/L NILSA RODRIGES Comment:Testing performed by : [address] [address] BUN 33(H) 6 - 25 mg/dL [facility] Comment:Testing performed by : [address] [address] Creatinine 4.60(H) 0.60 - 1.10 mg/dL [facility] Comment:Testing performed by : [address] [address] Glucose 177 70 - 199 mg/dL [facility] [...] was last revised 2022. Testing performed by: [address] [address] Calcium 9.5 8.5 - 10.3 mg/dL [facility] Comment:Testing performed by : [address] [address] Bilirubin, total 0.4 0.1 - 1.2 mg/dL [facility] Comment:Testing performed by : [address] [address] Protein, pl 8.2 6.5 - 8.5 g/dL [facility] Comment:Testing performed by : [address] [address] Albumin 3.9 3.5 - 5.0 g/dL [facility] Comment:Testing performed by : [address] [address] Alk phos 95 40 - 130 Units/L [facility] Comment:Testing performed by : [address] [address] ALT 24 7 - 45 Units/L [facility] Comment: HEMOLYZED: Hemolysis interferes with the above test. Testing performed by: [address] [address] AST 26 10 - 45 Units/L NILSA RODRIGES Comment: HEMOLYZED: Hemolysis interferes with the above test. Testing performed by: [facility], [address] [place] [address], [place]., [address] Blood 07/12/2024 11:5 3 AM ENFORCEMENT OFFICER 07/12/2024 11:58 AM ENFORCEMENT OFFICER Donna CUEVA LAB BLOOD ORDERABLES Final Re sult NILSA [address] [facility] Department [place] [address] * ECG 12 lead (07/12/2024 11:48 AM ENFORCEMENT OFFICER) Ventricular Rate EKG/Min 77 BPM [facility] Atrial Rate 77 BPM [facility] WA-Interval (MSEC) 154 ms [facility] QRS-Interval (MSEC) 66 ms [facility] QT-Interval (MSEC) 412 ms [facility] QTc 466 ms [facility] P Heath 72 degrees [facility] R Heath 6 degrees [facility] T Heath 62 degrees [facility] Diagnosis Normal sinus rhythm Normal ECG When compared with ECG of 21-APR-2024 10:35, No significant change was found Confirmed by DIAMOND GUTIERREZ M.D. ([id number]) on 07/13/2024 9:26:23 PM [facility] 07/12/2024 11:4 8 AM ENFORCEMENT OFFICER 07/13/2024 9:26 PM ENFORCEMENT OFFICER Donna CUEVA ECG ORDERABLES Final Result Performing Organization Address [facility]/ZIP Co de Phone Number [facility] * CT Cervical Spine WO Contrast (07/12/2024 10:38 AM ENFORCEMENT OFFICER) Anatomical Region Laterality Modality Spine N/A Computed Tomogra phy 07/12/2024 11:0 8 AM ENFORCEMENT OFFICER Narrative 07/12/2024 11:13 AM ENFORCEMENT OFFICER EXAM DESCRIPTION: CT CERVICAL SPINE WO CONTRAST [...] Wally Hernandez M.D. RB: AMADA Report ID: [id number] Reading Location: [id number] Procedure Note Wally Hernandez MD - 07/12/2024 [...] Wally Hernandez M.D. RB: AMADA Report ID: [id number] Reading Location: [place] [address] PROCEDURES Final Resul t * CT Facial Bones WO Contrast (07/12/2024 10:38 AM ENFORCEMENT OFFICER) Anatomical Region Laterality Modality Head and Neck N/A Computed Tomogra phy 07/12/2024 11:0 3 AM ENFORCEMENT OFFICER Narrative 07/12/2024 11:08 AM ENFORCEMENT OFFICER EXAM DESCRIPTION: CT FACIAL BONES WO CONTRAST [...] Wally Hernandez M.D. RB: AMADA Report ID: [id number] Reading Location: [place] [address] Procedure Note Wally Hernandez MD - 07/12/2024 [...] Wally Hernandez M.D. RB: AMADA Report ID: [id number] Reading Location: [id number] Donna CUEVA IMG CT PROCEDURES Final Resul t * CT Head WO Contrast (07/12/2024 10:38 AM ENFORCEMENT OFFICER) Anatomical Region Laterality Modality Head and Neck N/A Computed Tomogra phy 07/12/2024 10:5 9 AM ENFORCEMENT OFFICER Narrative 07/12/2024 11:03 AM ENFORCEMENT OFFICER EXAM DESCRIPTION: CT HEAD WO CONTRAST REASON [...] Wally Hernandez M.D. RB: AMADA Report ID: [id number] Reading Location: [id number] Procedure Note Wally Hernandez MD - 07/12/2024 [...] Wally Hernandez M.D. RB: AMADA Report ID: [id number] Reading Location: [id number] Donna CUEVA IMG CT PROCEDURES Final Resul t * XR Shoulder Right 2 or More Views (07/12/2024 10:08 AM ENFORCEMENT OFFICER) Anatomical Region Laterality Modality Upper Extremities, Shoulder Right Comp uted Radiography 07/12/2024 10:1 4 AM ENFORCEMENT OFFICER Narrative 07/12/2024 10:15 AM ENFORCEMENT OFFICER EXAM DESCRIPTION: XR SHOULDER RIGHT 2 OR [...] Wally Hernandez M.D. RB: AMADA Report ID: [id number] Reading Location: [id number] Procedure Note Wally Hernandez MD - 07/12/2024 [...] Wally Hernandez M.D. RB: AMADA Report ID: [id number] Reading Location: [id number] Julio Landeros DO IMG XR PROCEDURES Final Result * XR Shoulder Left 2 or More Views (07/12/2024 10:08 AM ENFORCEMENT OFFICER) Anatomical Region Laterality Modality Upper Extremities, Shoulder Left Comp uted Radiography 07/12/2024 10:1 3 AM ENFORCEMENT OFFICER Narrative 07/12/2024 10:14 AM ENFORCEMENT OFFICER EXAM DESCRIPTION: XR SHOULDER LEFT 2 OR [...] Wally Hernandez M.D. RB: AMADA Report ID: [id number] Reading Location: [id number] Procedure Note Wally Hernandez MD - 07/12/2024 [...] Wally Hernandez M.D. RB: AMADA Report ID: [id number] Reading Location: [id number] us Julio Landeros DO IMG XR PROCEDURES Final Result * POCT glucose (07/12/2024 9:33 AM ENFORCEMENT OFFICER) Glucose, POC 164 70 - 199 mg/dL Comment:Testing performed by : [address], [address] Glucose comment 1 Use This Result NILSA RODRIGES Comment:Testing performed by : [facility], [address] [place] [address]., [address] Blood 07/12/2024 9:33 AM ENFORCEMENT OFFICER 07/12/2024 9:33 AM ENFORCEMENT OFFICER Notinfile Unknown LAB POCT ORDERABLES - DEVICE F inal Result Performing Organization Address City/State/[facility] Co de Phone Number NILSA RODRIGES [address] [facility] Department [place] [address] * Lipid panel (05/16/2024 10:14 AM ENFORCEMENT OFFICER) Cholesterol 160 30 - 199 mg/dL Comment: [...] NILSA DIAS Blood 05/16/2024 10:1 4 AM ENFORCEMENT OFFICER 05/16/2024 10:50 AM ENFORCEMENT OFFICER Narrative NILSA ELLIOTClarkeKECIA - 05/16/2024 11:23 AM ENFORCEMENT OFFICER These lab test should be done fasting. This means do not eat or drink for at least 12 hours prior to getting your blood drawn. us Smith Gibbs MD LAB BLOOD ORDERABLES Final R esult NILSA ZARATECH [address] [facility]. Department [place] [address] * Colonoscopy (03/01/2024 8:49 AM CDT) Anatomical Region Laterality Modality Other Narrative Procedure Note Jaya Grier MD - 03/01/2024 8:49 AM CDT [facility] GI ENDOSCOPY Patient Name: Sixto Chakraborty Procedure Date: 03/01/2024 8:49 AM Date of : 1950 Admit Type: Outpatient Age: 73 Gender: Female Attending MD: Jaya Grier M.D. Room: [facility] ENDOSCOPY ROOM 06 Note Status: [...] The scope was passed under direct vision.The [id number]-[id number] colonoscope was introduced through theanus and advanced [...] On: 03/01/2024 8:49 AM Recognized by the [employer] for promoting quality [...] taking vitamin-D. History of end-stage renal disease. Director Education/Model: [employer] A (S/N [id number]) CLINICAL INFORMATION: Current height: 61 inches Maximum [...] Rafaela Paulino M.D. TW: TW Report ID: [id number] Reading Location: [id number] Procedure Note Raafela Paulino MD - 01/22/2024 EXAM DESCRIPTION: DEXA AXIAL SKELETON BONE DENSITY 1 OR MORE SITES REASON FOR STUDY: 73 y/o year old F with given history of: Post menopausal status. History of taking vitamin-D. History of end-stagerenal disease. Director Education/Model: [employer] A (S/N [id number]) CLINICAL INFORMATION: Current height: 61 inches Maximum [...] Rafaela Paulino M.D. TW: TW Report ID: [id number] Reading Location: [id number] us Cherelle Corcoran MD IMG DXA PROCEDURE [...] age 40, based on guidelines of the [employer] (ACR Practice Parameter for the Performance of Screening and Diagnostic Mammography) and [employer]. For women [...] 19. Hep B core IgM Nonreactive Nonreactive [facility] Comment: Interpretive Data If HepB [...] on 2019. HepBsAg Nonreactive Nonreactive [facility] Blood 10/15/2023 6:50 AM CDT 10/15/2023 7:07 AM CDT Jimbo Srtauss MD LAB MICROBIOLOGY - GENERAL FREDDY HALEY Final Result NILSA [address] Department [place] [address] * (ABNORMAL) Albumin Creatinine Ratio, Urine (10/10/2022 11:39 AM CDT) Albumin Ur 3,240.2 mg/L NILSA Comment: Interpretive Data No reference range established. Current interpretive data was last revised 2018. Testing performed by: [facility], [address] [place] [address]., [address] Creatinine Ur 74.8 mg/dL NILSA Comment: Interpretive Data No reference range established. Current interpretive data was last revised 2018. Testing performed by: [facility], [address] [place] [address]., [address] Albumin Creatinine Ratio, Ur 4,332(H) 1 - 29 mg/g NILSA Comment:Testing performed by : [facility], [address] [place] [address]., [address] Urine 10/10/2022 11:3 9 AM CDT 10/10/2022 1:45 PM CDT us Markie Ryan MD LAB URINE ORDERABLES Final Re sult Performing Organization Address City/State/[facility] Co de Phone Number NILSA [address] [facility] Department [place] [address] from Last 3 Months or Most Recently Relevant to Health Maintenance Insurance MEDICARE MEDICARE [place] MEDICARE [place] [facility] Address: [address] [address] [place] [address] [place] Advance Directives For more information, please contact: [phone] Documents on File Type Date Recorded Patient Line Service Person Expl anation ADVANCE DIRECTIVE 07/15/2024 7:58 AM Power of Academic Program Specialist-Medical ADVANCE DIRECTIVE 02/02/2024 12:34 PM Erik r of Academic Program Specialist-Medical * Full Code (Latest Code Status on [...] Gayle Daughter Health Care Agent Care Teams Aircraft Load Controller Relationship Specialty Start Date End Date Cherelle Corcoran MD PCP - General Family Medicine 08/30/19 Mark Queen MD Consulting Physician Infectious Diseases 01/10/20 Rudolph Welch MD [address] [facility] [address] [place] [address] Consulting Physician Infectious Diseases 12/05/22 Markie Ryan MD [address] [facility] [address] [place] [address] Consulting Physician Nephrology 12/05/22 [place] [id number] [address] Consulting Physician Nephrology 10/22/23 Jaya Grier MD [address] [facility] [address] [place] [address] Consulting Physician Gastroenterology 02/01/24 Edgardo Kauffman MD [address] [facility] [address] [place] [address] Surgeon Vascular Surgery 07/15/24
--- OUTSIDE RECORDS SUMMARY | 2024-09-21 16:03 | XMS_ITS | CONTINUITY OF CARE DOCUMENT ---
Author Name flash, flash Address Unknown Organization [facility] Address [address] [facility] [address] [place] [address] Phone [phone] Care Team Providers Care Foot Tender Name Role Phone Jared YOUNG, Meghann Unavailable LONDON YOUNG, DUANE Unavailable [phone] LONDON YOUNG, DUANE Unavailable PROBLEMS Condition Status Date Provider Notes Cardiology examination active Audie Blas Parkinson's disease active Audie Blas anemia active Audie Blas Schizophrenia active Audie Blas Diabetes mellitus, Type II active Audie woods ESRD - On Hemodialysis active Audie Blas HTN essential active Audie Blas Hyperlipidemia active Audie Blas Diabetic neuropathy active Audie Blas Depression active Audie Blas Dementia active Audie Blas CHF active Auide Blas arthritis active Audie Blas ENCOUNTERS Date Type Provider Location Encounter Diag nosis 08/15 - 08/15 In-person encounter Office Visit Meghann Coleman MD [facility] 03/07 - 07/06 In-person encounter Office Visit Meghann Coleman MD [facility] 11/29 - 11/30 In-person encounter Office Visit Meghann Coleman MD [facility] Cardiology examinationarthritisCHFDementiaDepressionDiabetic neuropathyHyperlipidemiaHTN essentialESRD - On HemodialysisDiabetes mellitus, Type IISchizophreniaanemiaParkinson's disease VITAL SIGNS Date Observation Value Provider Body Mass Index (Ratio) 25.60 kg/m2 Kyler Coleman MD blood pressure, diastolic 76 mm[Hg] Madisyn johnson [facility] blood pressure, systolic 114 mm[Hg] Sheree chatterjee [facility] oxygen saturation, oximetry 96 % Brandie [facility] pulse rate 75 /min Brandie [facility] blood pressure, cuff size regular Madisyn johnson [facility] weight E&M 140 [lb_av] Brandie [facility] height E&M 62 [in_i] [facility] Body Mass Index (Ratio) 25.60 kg/m2 Kyler Coleman MD blood pressure, diastolic 57 mm[Hg] [facility] blood pressure, systolic 119 mm[Hg] rusty [facility] oxygen saturation, oximetry 98 % [facility] pulse rate 56 /min [facility] respiratory rate E&M 12 /min [facility] weight E&M 140 [lb_av] [facility], [facility] size regular Anand zheng [facility] height E&M 62 [in_i] [facility] Body Mass Index (Ratio) 24.87 kg/m2 [facility] blood pressure, diastolic 91 mm[Hg] Li nkLogic [...] of grandchildren Meghann Coleman MD Shiloh Nalluri [employer]LET 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 Meghann Coleman MD Cardiology: p er kosher sealer Dr. espinoza [facility] home dialysis every other [...] 55 Shiloh Barrientos NP Cardiology: p er kosher sealer Dr. espinoza Barrientos NP Cardiology:A1c 8.2 Her updated medication list for this problem includes: Lantus Solostar U-100 Insulin 100 Unit/ml (3 Ml) Insulin Pen (Insulin glargine) Shiloh Barrientos NP Cardiology:Hgb 9.5 Shiloh Florencialuri COLLET DRILLER Cardiology: A ppears compensated, continue current medications [...] mouth every day Meghann Coleman MD Cardiology:per kosher sealer Dr. espinoza Coleman MD Cardiology:Appears c ompensated, continue current medications Meghann Coleman MD Date Name Arterial Duplex Bi-L ower EX HISTORY OF PROCEDURES Procedure Date Procedure Name Provider Procedure Notes S tatus Complex e/m visit add on Meghann Coleman MD completed Complex e/m visit add on Isidro Hahn MD completed EKG Meghann Coleman MD complet ed
--- OUTSIDE RECORDS SUMMARY | 2024-09-21 16:03 | XMS_ITS | Encounter Summary ---
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 Name Role Phone Cherelle Corcoran MD Primary Care Pro vider Mark Queen MD Unavailable [phone] Rudolph Welch MD Unavailable Markie Ryan MD Unavailable Jimbo Strauss MD Unavailable [phone] Jaya Grier MD Unavailable Edgardo Kauffman MD Unavailable [phone] Reason for Visit * Reason Onset Date Comments Wound Infection 09/21/2024 Weakness - Generalized 09/21/2024 Confusion 09/21/2024 Encounter Details Date Type Department Care Team (Late st Contact Info) Description 09/21/2024 Nurse Triage [facility] Primary Care at [address] [place] [address] Cherelle Corcoran MD [facility] [address] Social History Tobacco Use Types [...] materials from doctor or pharmacy Often 01/20/2024 [facility] Utilities Answer Date Recorded In the past 12 months has th e [employer], gas, oil, or water [employer] threatened to shut off services in your [...] on file 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 [...] in the wound Protocols used: Wound Infection [id number] * Telephone Encounter - Monserrat Gillis RN [...] on filedocumented in this encounter Care Teams Pick Pulling Machine Tender Relationship Specialty Start Date End Date Cherelle Corcoran MD PCP - General Family Medicine 08/30/19 Mark Queen MD Consulting Physician Infectious Diseases 01/10/20 Rudolph Welch MD [address] [facility] [address] [place] [address] Consulting Physician Infectious Diseases 12/05/22 Markie Ryan MD [address] [facility] [address] [place] [address] Consulting Physician Nephrology 12/05/22 [place] [address] [address] Consulting Physician Nephrology 10/22/23 Jaya Grier MD [address] [facility] [address] [place] [address] Consulting Physician Gastroenterology 02/01/24 Edgardo Kauffman MD [address] [facility] [address] [place] [address] Surgeon Vascular Surgery 07/15/24 documented as of this encounter
--- OUTSIDE RECORDS SUMMARY | 2024-09-21 16:03 | XMS_ITS | Referral Summary ---
Author Organization [facility] Address [address] [place] [address] Care Team Providers Care Electronics Hardware Design Engineer Name Role Phone Cherelle Corcoran MD Primary Care Pro vider Mark Queen MD Unavailable [phone] Rudolph Welch MD Unavailable Markie Ryan MD Unavailable [phone] Jimbo Strauss MD Unavailable [phone] Jaya Grier MD Unavailable Edgardo Kauffman MD Unavailable [phone] Encounters Date Type Department Care Team Description 09/22/19 25 Nurse Triage [facility] Primary Care at [place] [address] [facility] [address] [place] [phone] Cherelle Corcoran MD 09/15/19 25 Results Follow-Up [facility] Gastroenterology at [place] [address] [facility] [address] [place] [phone] Jaya Grier MD 09/14/19 25 9:19 AM CDT Anesthesia Event [facility] GI Lab [address] [place] [address] Sarahy Hernandez MD 09/14/19 8:00 AM CDT - 09/14/19 8:30 AM CDT Surgery [facility] [address] [place] [address] Jaya Grier MD ESOPHAGOGASTRODUODENOSCOPY BIOPSY 09/14/19 7:54 AM CDT - 09/14/19 10:32 AM CDT Hospital Encounter [facility] GI Lab [address] [place] [address] Jaya Grier MD Ulcer of esophagus without bleeding; Gastroesophageal reflux disease without esophagitis Discharge Disposition: Discharge to home or self care 09/09/19 9:00 AM CDT Office Visit [facility] Orthopedics and Sports Medicine [address] [facility] [address] [place] [address] Brook Muhammad NP Myofascial pain syndrome, cervical (Primary Dx); Chronic neck pain; Foraminal stenosis of cervical region, diffuse bilateral; Arthropathy of cervical facet joint; DDD (degenerative disc disease), cervical, C3-C4 through C6-C7; Cervical spinal osteophytosis, multilevel 09/01/19 2:15 PM CDT Office Visit [facility] Cardiology [address] [phone] Santo Vail MD Dyspnea, unspecified type (Primary Dx) 08/23/19 8:20 AM YARN MERCERIZER OPERATOR HELPER Office Visit [facility] Endocrinology Metabolism and Lipid [address] [facility] Medical [facility] [address], [address] [place] [address] Smith Gibbs MD Type 2 diabetes mellitus with diabetic nephropathy, with long-term current use of insulin (HCC) (Primary Dx); Type 2 diabetes mellitus with diabetic neuropathy, with long-term current use of insulin (HCC); Mixed hyperlipidemia; ESRD on hemodialysis (HCC); Primary hypertension 08/18/19 8:15 AM YARN MERCERIZER OPERATOR HELPER Telemedicine [facility] Behavioral Health [address] [facility] [address] [place] [address] Adryan Swenson MD Schizoaffective disorder, bipolar type (HCC) (Primary Dx) 08/17/19 25 Telephone [facility] Primary Care at [address] [place] [phone] Cherelle Corcoran MD Medical Question/Miscellaneous 08/02/19 25 JOY ED Outreach [address] [address] Felicia Garcia MA 08/02/19 25 Nurse Triage [facility] Primary Care at [address] [place] [phone] Cherelle Corcoran MD 07/31/19 25 9:25 PM YARN MERCERIZER OPERATOR HELPER - 07/31/19 25 10:27 PM YARN MERCERIZER OPERATOR HELPER Emergency [facility] Emergency Department [address] [place] [address] Discharge Disposition: Left without being seen 07/27/19 25 Orders Only [facility] Endocrinology Metabolism and Lipid [address] [facility] 13th [place] [address] [place] [address] Joe Ballard MD 07/21/19 25 Telephone [facility] Dialysis Access Center at [address] [place] [address] Varsha Oneill RN 07/18/19 25 Orders Only [facility] Gastroenterology at [address] [place] [phone] Jaya Grier MD Ulcer of esophagus without bleeding (Primary Dx) 07/18/19 25 2:45 PM YARN MERCERIZER OPERATOR HELPER Office Visit [facility] Medical [facility] Primary Care at [address] [place] [phone] Cherelle Corcoran MD Fall, subsequent encounter (Primary Dx); Neck pain; Pressure injury of buttock, stage 1, unspecified laterality 07/15/19 25 2:30 PM YARN MERCERIZER OPERATOR HELPER - 07/15/19 25 11:59 PM YARN MERCERIZER OPERATOR HELPER Hospital Encounter [facility] Dialysis Access Center at [address] [place] [address] ESRD (end stage renal diseas e) on dialysis (HCC) (Primary Dx) Discharge Disposition: Discharge to home or self care 07/15/19 10:00 AM YARN MERCERIZER OPERATOR HELPER - 07/15/19 11:00 AM YARN MERCERIZER OPERATOR HELPER Surgery [facility] Cardiac Stove Bottom Worker [address] [place] [address] Edgardo Kauffman MD PERMACATH EXCHANGE [35835 (CPT )] 07/15/19 9:13 AM YARN MERCERIZER OPERATOR HELPER - 07/15/19 1:20 PM YARN MERCERIZER OPERATOR HELPER Hospital Encounter [facility] Cardiac Stove Bottom Worker [address] [place] [address] Edgardo Kauffman MD ESRD (end stage renal disease) on dialysis (HCC) Discharge Disposition: Discharge to home or self care 07/14/19 12:35 PM YARN MERCERIZER OPERATOR HELPER - 07/14/19 11:59 PM YARN MERCERIZER OPERATOR HELPER Hospital Encounter [facility] Diagnostic Imaging [address] [place] [address] Discharge Disposition: Discharge to home or self care 07/14/19 12:11 PM YARN MERCERIZER OPERATOR HELPER - 07/14/19 11:59 PM YARN MERCERIZER OPERATOR HELPER Hospital Encounter [facility] Dialysis Access Center at [facility] [address] [facility] [address] [place] [address] ESRD (end stage renal diseas e) on dialysis (HCC) (Primary Dx); Type 2 diabetes mellitus with diabetic neuropathy, with long-term current use of insulin (HCC); Hypertension associated with diabetes (HCC); ESRD on hemodialysis (HCC); Hyperlipidemia associated with type 2 diabetes mellitus (HCC) Discharge Disposition: Discharge to home or self care 07/13/19 Nurse Triage [facility] Primary Care at [address] [place] [address] Cherelle Corcoran MD 07/13/19 JOY ED Outreach [facility] Accountable Care Organization [address] [place] [address] Ale Goldstein MA 07/13/19 11:03 AM YARN MERCERIZER OPERATOR HELPER Anesthesia Event [facility] GI Lab [address] [place] [address] Larry Valdivia MD 07/13/19 9:00 AM YARN MERCERIZER OPERATOR HELPER - 07/13/19 9:30 AM YARN MERCERIZER OPERATOR HELPER Surgery [facility] GI Lab [address] [place] [address] Jaya Grier MD ESOPHAGOGASTRODUODENOSCOPY BIOPSY 07/13/19 8:39 AM YARN MERCERIZER OPERATOR HELPER - 07/13/19 12:26 PM YARN MERCERIZER OPERATOR HELPER Hospital Encounter [facility] GI Lab [address] [place] [address] Jaya Grier MD Anemia, unspecified type; Gastritis without bleeding, unspecified chronicity, unspecified gastritis type; Gastritis, presence of bleeding unspecified, unspecified chronicity, unspecified gastritis type Discharge Disposition: Discharge to home or self care 07/12/19 11:16 AM YARN MERCERIZER OPERATOR HELPER - 07/12/19 3:44 PM [facility] Emergency [facility] Emergency Department [address] [place] [address] Fall, initial encounter (Primary Dx); Acute cystitis without hematuria Discharge Disposition: Discharge to home or self care 07/12/19 Telephone [facility] Primary Care at [address] [address] Cherelle Corcoran MD Medical Question/Miscellaneous 07/11/19 Nurse Triage [facility] Primary Care at [address] [address] Cherelle Corcoran MD 07/08/19 1:00 PM [facility] Office Visit [facility] Primary Care at [address] [address] Cherelle Corcoran MD Altered mental status, unspecified [...] disease without esophagitis; Frailty 07/07/19 1:30 PM YARN MERCERIZER OPERATOR HELPER Office Visit [facility] Endocrinology Metabolism and Lipid [address] [place] [address] Medical Office [address], [address] [place] [address] Pippa Troy NP Type 2 diabetes mellitus with diabetic nephropathy, with long-term current use of insulin (HCC) (Primary Dx); Dyslipidemia; Primary hypertension 07/07/19 3:00 PM YARN MERCERIZER OPERATOR HELPER Office Visit [facility] Cardiology [address] [facility] [address] [place] [address] Santo Vail MD Dyspnea, unspecified type (Primary Dx) 07/04/19 25 Telephone [facility] Primary Care at [place] [address] [facility] [address] [place] [address] Cherelle Corcoran MD JOY Questions 06/27/19 25 Nurse Triage [facility] Primary Care at [place] [address] [facility] [address] [place] [address] Cherelle Corcoran MD from Last 3 Months Allergies No known active allergies Medications lidocaine (ASPERCREME) 4 % adhesive patch,medicated Place 1 patch on the skin daily as needed to lower back Active polyethylene glycol (MIRALAX) 17 gram/dose bulk powder Take 17 g by mouth daily as needed (Constipation) 595 g 024 Active FreeStyle Madhav 3 [facility] Use Madhav 3 reader [...] current use of insulin ([facility]) 1 each by other route daily 100 strip 3 Active blood-glucose sensor (FreeStyle Madhav 3 Plus Sensor) deviceIndications :Type 2 diabetes mellitus with diabetic nephropathy, with long-term current use of insulin ([facility] [...] use of insulin ([facility]) Use Madhav 3 reader to [...] 07/07/2024 Assessment & Plan (07/14/2024 2:30 PM YARN MERCERIZER OPERATOR HELPER): Continue Lipitor Assessment & Plan (07/14/2024 8:56 AM YARN MERCERIZER OPERATOR HELPER): Ok to restart atorvastatin, but also given [...] 11/02/2023 Assessment & Plan (07/14/2024 2:39 PM YARN MERCERIZER OPERATOR HELPER): Patient is needing a Perma catheter exchange [...] proceed. Assessment & Plan (07/14/2024 8:51 AM YARN MERCERIZER OPERATOR HELPER): Following with nephrology Assessment & Plan (01/06/2024 [...] 10/30/2023 Assessment & Plan (05/06/2024 7:49 AM YARN MERCERIZER OPERATOR HELPER): Reviewed hospital discharge summary Now resolved Upcoming [...] stable Assessment & Plan (07/24/2023 1:51 PM YARN MERCERIZER OPERATOR HELPER): Chronic/stable Parkinsonism 08/14/2022 Assessment & Plan (07/14/2024 8:54 AM YARN MERCERIZER OPERATOR HELPER): Following with neurology, recommend reaching out to them in regards to restarting benztropine. Consider waiting until after restarts other medications given daughter reports tremors controlled off benztropine currently Assessment & Plan (11/10/2023 4:43 PM CDT): Following with neurology On cogentin Assessment & Plan (07/24/2023 1:50 PM YARN MERCERIZER OPERATOR HELPER): Following with neurology On cogentin twice a day Assessment & Plan (01/23/2023 9:20 AM CDT): Following with neurology On cogentin twice a day Assessment & Plan (10/10/2022 10:41 AM CDT): Following with neurology On cogentin Assessment & Plan (08/14/2022 10:46 AM YARN MERCERIZER OPERATOR HELPER): Following with neurology, reviewed note On cogentin [...] a walker. - PT/OT recommends SNF. -Plan [facility] on 11/26 ? Assessment & Plan (11/24/2021 2:07 PM CDT): Deconditioning 2/2 prolonged hospitalization. Daughter reports that prior to her illness, she was independent with a walker. - PT/OT recommends SNF. -Plan [facility] on 11/25. Assessment & Plan (11/23/2021 12:24 PM CDT): Deconditioning 2/2 prolonged hospitalization. Daughter reports that prior to her illness, she was independent with a walker. - PT/OT recommends SNF. -Plan [facility] on 11/25. Assessment & Plan (11/22/2021 1:34 [...] care Assessment & Plan (08/14/2022 10:47 AM YARN MERCERIZER OPERATOR HELPER): Following with podiatry Assessment & Plan (04/02/2022 [...] Goal weight 155lbs -Home with family at [place], pants cutter consulted to review salt restrictions. -outpatient [...] - renal consulted regarding volume management, possible prison dialysis planning, expedite OP f/u. Serologies and urine studies ordered. ED neg, compliments neg, cryoglobulin pending, ANCA pending, HIV neg. Continued -Added metolazone 2.5mg/daily per renal 09/13- with improving swelling, Cr bump to 2.33 so held further -Anticipate likely transition to PO agents prior to DC (?09/17) with ongoing clinical improvement. Goal weight 155lbs -Home with family at [place], pants cutter consulted to review salt restrictions. Assessment [...] - renal consulted regarding volume management, possible prison dialysis planning, expedite OP f/u. Serologies and urine studies ordered. -Added metolazone 2.5mg/daily per renal. -Anticipate likely transition to PO agents prior to DC with ongoing clinical improvement. Goal weight 145-150lbs -Home with family at [place], pants cutter consulted to review salt restrictions. Assessment [...] - renal consulted regarding volume management, possible prison dialysis planning, expedite OP f/u. Serologies and [...] - renal consulted regarding volume management, possible prison dialysis planning, expedite OP f/u. Assessment & [...] 08/19/2021 Assessment & Plan (07/14/2024 8:53 AM YARN MERCERIZER OPERATOR HELPER): Following with neurology Assessment & Plan (01/05/2024 10:40 PM CDT): Follows with neurology. -continue risperidone 2mg QHS -continue benztropine 2mg daily Assessment & Plan (11/10/2023 4:37 PM CDT): Following with neurology Assessment & Plan (07/24/2023 1:50 PM YARN MERCERIZER OPERATOR HELPER): Following with neurology Assessment & Plan (01/23/2023 9:18 AM CDT): Following with neurology Assessment & Plan (10/10/2022 10:37 AM CDT): Following with neurology, ordered MRI, # given to son to schedule Assessment & Plan (06/09/2022 3:37 PM YARN MERCERIZER OPERATOR HELPER): Needs to reschedule with neurology Looking into assisted, but declined for [facility] for schizoaffective disorder Assessment & Plan (01/14/2022 9:05 AM CDT): Following with psychiatry Assessment & Plan (09/03/2021 3:28 PM CDT): Chronic, stable. Alert, oriented to self, current place. Continue to monitor. Clock drawing test at next interval. Consideration for Aricept. Encounter for Medicare annual wellness exam 12/21 Assessment & Plan (11/10/2023 4:42 PM CDT): Reviewed [facility] & PHQ Screening PHQ-2 Total Score (If total score is 3 or more points, staff should administer the PHQ-9): 2 Hearing/vision screening reviewed, referrals placed as needed Fall risk reviewed Reviewed medications and supplements Specialists: endocrine, nephrology, cardiology, neurology, psychiatry evidence of cognitive impairment HCM: orders placed as needed Assessment & Plan (06/09/2022 3:37 PM YARN MERCERIZER OPERATOR HELPER): Reviewed [facility] PHQ Screening PHQ-2 Total Score (If total score is 3 or more points, staff should administer the PHQ-9): 0 Hearing/vision screening reviewed, referrals placed as needed Fall risk reviewed Reviewed medications and supplements Specialists: endocrine, nephrology, cardiology, neurology evidence of cognitive impairment HCM: orders placed as needed Assessment & Plan (01/08/2021 3:44 PM CDT): Reviewed [facility] PHQ Screening PHQ-2 Total Score (If total [...] type Assessment & Plan (08/18/2024 8:44 AM YARN MERCERIZER OPERATOR HELPER): Chronic, stable. Does not report any stephanie [...] discussed. Assessment & Plan (07/14/2024 8:54 AM YARN MERCERIZER OPERATOR HELPER): Following with psychiatry, recommend reaching out to [...] psychiatry Assessment & Plan (07/24/2023 1:50 PM YARN MERCERIZER OPERATOR HELPER): Following with psychiatry Assessment & Plan (01/23/2023 [...] discussed. Assessment & Plan (08/09/2021 5:42 AM YARN MERCERIZER OPERATOR HELPER): Following with psychiatry Assessment & Plan (08/07/2021 3:28 PM YARN MERCERIZER OPERATOR HELPER): Chronic condition, switch to Haldol and has had multiple different problems including acute kidney failure in infectious process. Records not available at outside hospital[facility]. Confounded by delirium. Currently experiencing delirium will discontinue Haldol and return to Risperdal as previously taking. Risperdal was discontinued due to poorly-controlled diabetes. Monitor in 1 to 2 weeks. Assessment & Plan (07/03/2021 7:24 AM YARN MERCERIZER OPERATOR HELPER): Following with psychiatry D/c risperidone, started on haldol Assessment & Plan (07/01/2021 9:16 PM YARN MERCERIZER OPERATOR HELPER): Chronic, stable. +persistent auditory hallucinations Discontinue Risperdal [...] Reviewed all of those notes-primary care doctor, bean dumper, director of neurology. The patient previously lived on her own and was observed to be hoarding. See additional problems-dementia. Evaluate again in 1 month after starting Risperdal. Iron deficiency anemia 04/02/2020 Assessment & Plan (05/06/2024 7:51 AM YARN MERCERIZER OPERATOR HELPER): Recommend discussing IV iron with nephrology Assessment & Plan (10/02/2020 4:35 PM CDT): Continue iron Assessment & Plan (05/28/2020 1:51 PM YARN MERCERIZER OPERATOR HELPER): Iron levels recently normalized, but still anemic, repeat today Assessment & Plan (04/16/2020 11:45 AM CDT): Recent iron within normal limits, H/H improving, continue supplementation until normalized Gastroesophageal reflux disease without esophagi tis 04/02/2020 Assessment & Plan (07/14/2024 8:56 AM YARN MERCERIZER OPERATOR HELPER): Restart protonix Upcoming EGD Assessment & Plan (01/05/2024 10:40 PM CDT): -continue famotidine Assessment & Plan (10/02/2020 4:35 PM CDT): Continue omeprazole Assessment & Plan (07/24/2020 2:06 PM YARN MERCERIZER OPERATOR HELPER): Recurrent symptoms off omeprazole, restart Assessment & Plan (05/28/2020 1:51 PM YARN MERCERIZER OPERATOR HELPER): Iron levels recently normalized, but still anemic, repeat today Assessment & Plan (04/02/2020 1:26 PM CDT): Start PPI History of amputation of toe 01/19/2020 Assessment & Plan (01/08/2021 3:50 PM CDT): Stable Assessment & Plan (10/02/2020 4:35 PM CDT): Stable Assessment & Plan (04/30/2020 1:00 PM YARN MERCERIZER OPERATOR HELPER): Stable Assessment & Plan (02/14/2020 5:15 PM CDT): Healing well Following with surgeon/wound clinic Assessment & Plan (01/19/2020 5:17 PM CDT): Has home health Following with vascular Hypertension associated with diabetes 12/13/2019 Assessment & Plan (07/14/2024 2:32 PM YARN MERCERIZER OPERATOR HELPER): Continue carvedilol, hydralazine Assessment & Plan (07/14/2024 8:51 AM YARN MERCERIZER OPERATOR HELPER): BP controlled today off medication Daughter reports nephrology said could restart medication, is planning to restart coreg first and monitor blood pressure prior to restarting nifedipine/hydralazine Assessment & Plan (05/06/2024 7:48 AM YARN MERCERIZER OPERATOR HELPER): BP controlled Continue nifedipine, hold prior to [...] x1 with HD. Most recent admission at [facility] with initiation of hydralazine and nifedipine [...] amlodipine Assessment & Plan (08/03/2023 4:02 PM YARN MERCERIZER OPERATOR HELPER): BP uncontrolled Start 5mg amlodipine Assessment & Plan (07/24/2023 1:49 PM YARN MERCERIZER OPERATOR HELPER): Blood pressure borderline today off medications Assessment & Plan (01/23/2023 9:18 AM CDT): Blood pressure borderline low today, asymptomatic Checking labs Advised to decrease amlodipine to 5mg and monitor blood pressure Assessment & Plan (10/10/2022 10:50 AM CDT): Continue coreg 6.25mg twice a day & 40mg valsartan Assessment & Plan (08/14/2022 10:43 AM YARN MERCERIZER OPERATOR HELPER): Blood pressure at goal, continue coreg 6.25mg twice a day Assessment & Plan (06/09/2022 3:32 PM YARN MERCERIZER OPERATOR HELPER): Blood pressure at goal, continue coreg 3.125mg [...] day Assessment & Plan (08/05/2021 10:35 AM YARN MERCERIZER OPERATOR HELPER): Blood pressure at goal Increase amlodipine to 10mg & d/c hydralazine per cardiology Assessment & Plan (05/28/2021 4:59 PM YARN MERCERIZER OPERATOR HELPER): Blood pressure above goal, but previously within [...] lisinopril Assessment & Plan (08/28/2020 12:12 PM YARN MERCERIZER OPERATOR HELPER): Blood pressure at goal Continue lisinopril Assessment & Plan (07/24/2020 2:05 PM YARN MERCERIZER OPERATOR HELPER): Blood pressure at goal Continue lisinopril Assessment & Plan (05/28/2020 1:50 PM YARN MERCERIZER OPERATOR HELPER): BP borderline Continue 10mg lisinopril Continue to monitor Assessment & Plan (04/30/2020 12:32 PM YARN MERCERIZER OPERATOR HELPER): BP borderline Continue 10mg lisinopril Continue to [...] 08/30/2019 Assessment & Plan (07/14/2024 2:31 PM YARN MERCERIZER OPERATOR HELPER): Controlled. Continue as per Endocrine and PCP Assessment & Plan (07/14/2024 8:50 AM YARN MERCERIZER OPERATOR HELPER): Following with endocrine, reviewed note Holding insulin [...] +SSI Assessment & Plan (07/24/2023 1:49 PM YARN MERCERIZER OPERATOR HELPER): Lab Results Component Value Date HGBA1C 8.1 [...] trulicity Assessment & Plan (08/14/2022 10:42 AM YARN MERCERIZER OPERATOR HELPER): Following with endocrine Continue lantus, 12 units humalog TIDAC & 1.5mg trulicity Assessment & Plan (06/09/2022 3:32 PM YARN MERCERIZER OPERATOR HELPER): Following with endocrine Home blood sugar at [...] for strict med oversight by family at [place] reviewed with daughter this admit. Assessment & [...] for strict med oversight by family at [place] reviewed with daughter this admit. Assessment & [...] and nephropathy. Med oversight by family at [place]. Assessment & Plan (09/14/2021 12:22 PM CDT): [...] as she had discussed this with outpatient technical trainer - repeat A1c - resume home statin, not currently on feliciano due to kidney function Assessment & Plan (08/05/2021 10:35 AM YARN MERCERIZER OPERATOR HELPER): Continue 15 units lantus twice a day Assessment & Plan (07/03/2021 7:24 AM YARN MERCERIZER OPERATOR HELPER): Fasting blood sugar significantly improved Risperidone changed Continue current meds Continue to monitor Assessment & Plan (06/18/2021 11:22 AM YARN MERCERIZER OPERATOR HELPER): Increase lantus to 60 units nightly, if blood sugar still above goal after 1 week split into 33 units twice a day Follow up with blood sugar via portal in 2 weeks Continue jardiance 25mg Continue trulicity 4.5mg weekly Assessment & Plan (05/28/2021 4:58 PM YARN MERCERIZER OPERATOR HELPER): Increase lantus to 55 units nightly Continue [...] weekly Assessment & Plan (08/28/2020 1:00 PM YARN MERCERIZER OPERATOR HELPER): DM Care Plan: Meds: Lantus - continue [...] recheck Assessment & Plan (07/24/2020 2:05 PM YARN MERCERIZER OPERATOR HELPER): Formulary change 2/2 insurance, switched to trulicity. Will increase to 1.5mg Assessment & Plan (05/28/2020 1:50 PM YARN MERCERIZER OPERATOR HELPER): Check a1c Sixto isn't checking blood sugar regularly, but when she is she has several >200 so I lean towards increasing if a1c>7 Assessment & Plan (04/30/2020 12:31 PM YARN MERCERIZER OPERATOR HELPER): Blood sugar improved on 40 units basaglar [...] was in the room. Recently treated at [facility] for PNA with prolonged course of antibiotics: [...] was in the room. Recently treated at [facility] for PNA with prolonged course of antibiotics: [...] was in the room. Recently treated at [facility] for PNA with prolonged course of antibiotics: [...] was in the room. Recently treated at [facility] for PNA with prolonged course of antibiotics: [...] was in the room. Recently treated at [facility] for PNA with prolonged course of antibiotics: [...] was in the room. Recently treated at [facility] for PNA with prolonged course of antibiotics: [...] was in the room. Recently treated at [facility] for PNA with prolonged course of antibiotics: [...] was in the room. Recently treated at [facility] for PNA with prolonged course of antibiotics: [...] was in the room. Recently treated at [facility] for PNA with prolonged course of antibiotics: [...] was in the room. Recently treated at [facility] for PNA with prolonged course of antibiotics: [...] 11/10/2023 Assessment & Plan (08/14/2022 10:44 AM YARN MERCERIZER OPERATOR HELPER): Continue eliquis Assessment & Plan (06/09/2022 3:36 PM YARN MERCERIZER OPERATOR HELPER): Continue eliquis Assessment & Plan (04/02/2022 6:05 [...] 10/10/2022 Assessment & Plan (08/07/2021 3:30 PM YARN MERCERIZER OPERATOR HELPER): Subacute, persistent, hospitalized recently. She is alert [...] Impression: Patient recently had MRI performed at [facility] which revealed acute osteomyelitis to the [...] 08/28/2020 Assessment & Plan (05/28/2020 1:52 PM YARN MERCERIZER OPERATOR HELPER): Encouraged to follow up with wound clinic for reassessment Assessment & Plan (04/30/2020 12:31 PM YARN MERCERIZER OPERATOR HELPER): Following with wound clinic Assessment & Plan [...] acute osteomyelitis on recent MRI performed at [facility]. She is being treated with [...] nightly Assessment & Plan (08/14/2022 10:42 AM YARN MERCERIZER OPERATOR HELPER): Continue lyrica 150mg nightly Assessment & Plan (06/09/2022 3:32 PM YARN MERCERIZER OPERATOR HELPER): Continue lyrica 150mg nightly Assessment & Plan [...] status. Assessment & Plan (05/28/2021 4:58 PM YARN MERCERIZER OPERATOR HELPER): Continue lyrica 150mg nightly Assessment & Plan [...] gabapentin Assessment & Plan (08/28/2020 1:00 PM YARN MERCERIZER OPERATOR HELPER): On gabapentin Assessment & Plan (07/24/2020 2:05 PM YARN MERCERIZER OPERATOR HELPER): Continue gabapentin Assessment & Plan (04/02/2020 1:22 [...] materials from doctor or pharmacy Often 01/20/2024 [facility] Utilities Answer Date Recorded In the past 12 months has [employer], oil, or water [employer] threatened to shut off services in your [...] week 04/20/2024 How often do you attend [facility] or [facility]? More than 4 [...] a group home (including now)? No 10/30/2023 PHQ-9 Answer [...] in a group home (including now)? No 04/20/2024 Personal Safety Answer Date Recorded Have you ever been in or are you currently in a harmful physical or emotional relationship or is someone making you feel afraid or unsafe? Denies 09/13/2024 Comments No Sex and Gender Information Value Date Recorded Sex Assigned at Not on file Legal Sex Female 9:03 AM YARN MERCERIZER OPERATOR HELPER Gender Identity Female 02/08/2020 6:39 [...] blood loss Medical Devices Implanted Type Area Teleprinter Installer Device Identifier Shelf Expiration Date Model / Serial / Lot [facility] MySupportAssistant Duram[employer] Vascpak Safesheath D-Pro 15.5fr 24cm Kit Catheter [id number] - [id number] Implanted:Qty: 1 on 10/15/2023 at [facility] MySupportAssistant 10/19/2025 [id number] / / [id number] [facility] MySupportAssistant Duraflow Embosafe 15.5fr 24cm Basic 2 Lumen Kit Catheter [id number] - [id number] Implanted:Qty: 1 on 07/15/2024 by Edgardo Kauffman MD at [facility] MySupportAssistant 08/19/2026 [id number] 15 / / [id number] Procedures Procedure Name Priority Date/Time Associated Diagnosis Comments POCT GLUCOSE DEVICE Routine 09/13/2024 9:47 AM CDT SURGICAL PATHOLOGY Routine 09/13/2024 9:28 AM CDT Ulcer of esophagus without bleeding ESOPHAGOGASTRODUODENOSCOPY BIOPSY 09/13/2024 9:20 AM CDT Ulcer of esophagus without bleeding EGD 09/13/2024 9:17 AM CDT POC BLOOD GAS AND CHEMISTRIE S, VENOUS Routine 09/13/2024 8:54 AM CDT OK INJECTION SINGLE/PHOTO MASK CLEANER TRIGGER POINT 1/2 MUSCLES Routine 09/08/2024 9:00 AM CDT Myofascial pain syndrome, cervical CT HEAD WO CONTRAST Schedule Routine, Read Routine (OP Routine) 09/07/2024 POCT HEMOGLOBIN A1C Routine 08/22/2024 8:55 AM YARN MERCERIZER OPERATOR HELPER Type 2 diabetes mellitus with diabetic nephropathy, with long-term current use of insulin (HCC) RESPIRATORY PATHOGEN PANEL STAT 07/31 1:02 PM YARN MERCERIZER OPERATOR HELPER DIABETIC EYE EXAM Routine 07/27/2024 12:37 PM YARN MERCERIZER OPERATOR HELPER HM DIABETES EYE EXAM Routine 07/22/2024 XR CHEST 1 VIEW ED Urgent/IP Urgent 07/15/2024 1:11 PM YARN MERCERIZER OPERATOR HELPER RPL DRE CVC W/O PUMP [id number] Routine 07/15 12:40 PM YARN MERCERIZER OPERATOR HELPER ESRD (end stage renal disease) on dialysis (HCC) XR CHEST 1 VIEW ED Urgent/IP Urgent 07/14/2024 1:16 PM YARN MERCERIZER OPERATOR HELPER EGFR STAT 07/14/2024 12:34 PM YARN MERCERIZER OPERATOR HELPER DIFFERENTIAL AUTO STAT 07/14/2024 12:34 PM YARN MERCERIZER OPERATOR HELPER BASIC METABOLIC PANEL STAT 07/14/2024 12:34 PM YARN MERCERIZER OPERATOR HELPER CBC WITH AUTO DIFFERENTIAL STAT 07/14 12:34 PM YARN MERCERIZER OPERATOR HELPER SURGICAL PATHOLOGY Routine 07/13/2024 11:10 AM YARN MERCERIZER OPERATOR HELPER Anemia, unspecified type Gastritis without bleeding, unspecified chronicity, unspecified gastritis type ESOPHAGOGASTRODUODENOSCOPY BIOPSY 07/13/2024 11:03 AM YARN MERCERIZER OPERATOR HELPER Anemia, unspecified type Gastritis without bleeding, unspecified chronicity, unspecified gastritis type EGD 07/13/2024 10:59 AM YARN MERCERIZER OPERATOR HELPER POC BLOOD GAS AND CHEMISTRIE S, VENOUS Routine 07/13/2024 10:12 AM YARN MERCERIZER OPERATOR HELPER TROPONIN T HIGH-SENSITIVITY 2-HOUR Timed 07/12/2024 1:59 PM YARN MERCERIZER OPERATOR HELPER URINALYSIS, MICROSCOPIC ONLY STAT 1:05 PM YARN MERCERIZER OPERATOR HELPER DRUGS OF ABUSE SCREEN, URINE WITHOUT CONFIRMATION STAT 07/12/2024 1:05 PM YARN MERCERIZER OPERATOR HELPER URINE CULTURE STAT 07/12/2024 1:05 PM YARN MERCERIZER OPERATOR HELPER URINALYSIS AND REFLEX TO MICROSCOPIC AND CULTURE STAT 07/12/2024 1:05 PM YARN MERCERIZER OPERATOR HELPER THYROID FUNCTION CASCADE STAT 025 11:53 AM YARN MERCERIZER OPERATOR HELPER EGFR STAT 07/12/2024 11:53 AM YARN MERCERIZER OPERATOR HELPER DIFFERENTIAL AUTO STAT 07/12/2024 11:53 AM YARN MERCERIZER OPERATOR HELPER TROPONIN T HIGH-SENSITIVITY SERIES (BASELINE, 2HR, 4HR, 6HR) STAT 07/12/2024 11:53 AM YARN MERCERIZER OPERATOR HELPER CBC WITH AUTO DIFFERENTIAL STAT 07/12 11:53 AM YARN MERCERIZER OPERATOR HELPER COMPREHENSIVE METABOLIC PANEL STAT 11:53 AM YARN MERCERIZER OPERATOR HELPER INFLUENZA A/B, RSV, AND COVID-19 PCR Routine 07/12/2024 11:53 AM YARN MERCERIZER OPERATOR HELPER ECG 12-LEAD STAT 07/12/2024 11:48 AM YARN MERCERIZER OPERATOR HELPER CT FACIAL BONES WO CONTRAST ED 06/23 10:38 AM YARN MERCERIZER OPERATOR HELPER CT CERVICAL SPINE WO CONTRAST ED 10:38 AM YARN MERCERIZER OPERATOR HELPER CT HEAD WO CONTRAST ED 07/12/2024 10:38 AM YARN MERCERIZER OPERATOR HELPER XR SHOULDER RIGHT 2 OR MORE VIEWS ED 07/12/2024 10:08 AM YARN MERCERIZER OPERATOR HELPER XR SHOULDER LEFT 2 OR MORE VIEWS ED 07/12/2024 10:08 AM YARN MERCERIZER OPERATOR HELPER POCT GLUCOSE DEVICE Routine 07/12/2024 9:33 AM YARN MERCERIZER OPERATOR HELPER LIPID PANEL Routine 05/16/2024 10:14 AM YARN MERCERIZER OPERATOR HELPER Mixed hyperlipidemia COLONOSCOPY 03/01/2024 8:49 AM CDT [...] ORDERABLES - DEVICE Fin al Result NILSA [address] Department [place] [address] * Surgical pathology (09/13/2024 9:28 AM CDT) Tissue specimen (specimen) (Esophageal biopsy) 09/13/2024 9:28 AM CDT Comment:Cold bx Narrative PATHOLOGY [facility] - 09/14/2024 1:55 PM CDT [facility] Department of Pathology [address] [place] [id number] Note to Patients: This report may contain [...] : 1950 (Age: 73) Gender: F Address: [address] [place] [address] Hospital #: [id number] Service: Gastro Location: Patient Type: [facility] OUTPATIENT Taken: 09/13/2024 Received: 09/13/2024 Accessioned: 09/13/2024 [...] cm. Entirely submitted. Labeled A1. Jar 0. [facility]/09/13/2024 13:20 CAMILA Johnson, PA (ASCP) Microscopic slide review and interpretation for this case was performed at [facility], Department of Surgical Pathology, [address] [facility] [place], [place] [id number], [place] [address] CLIA # [id number] us Jaya Grier MD LAB PATHOLOGY ORDERABLES Final R esult PATHOLOGY [facility] * EGD (09/13/2024 9:17 AM CDT) Anatomical Region Laterality Modality Other Narrative Procedure Note Jaya Grier MD - 09/13/2024 9:17 AM CDT [facility] Patient Name: Sixto Chakraborty Procedure Date: 09/13/2024 9:17 AM Date of : 1950 Admit Type: Outpatient Age: 73 Gender: Female Attending MD: Jaya Grier M.D. Room: [facility] END[facility] ROOM 03 Note Status: Finalized Procedure: [...] On: 09/13/2024 9:17 AM Recognized by the [employer] for promoting quality in endoscopy us Jaya Grier MD ENDOSCOPY PROCEDURES Final Resul t * (ABNORMAL) POC Blood Gas and Chemistries, Venous - (09/13/2024 8:54 AM CDT) pH,chris POC 7.34 7.32 - 7.43 pCO2, chris POC 51(H) 40 - 50 mmHg [facility] pO2,chris POC 22 mmHg [facility] Comment: Interpretive Data No reference range established. Current interpretive data was last revised 2020. HCO3, chris (Calc) POC 27 20 - 30 mmol/L [facility] Base excess, chris POC 1 mmol/L [facility] Comment: Interpretive Data No reference range established. Current interpretive data was last revised 2020. Hemoglobin, chris POC 10.9(L) 11.9 - 15.5 g/dL [facility] Hematocrit, chris POC 32.0(L) 35.6 - 45.5 % [facility] Sodium, chris POC 141 135 - 145 mmol/L [facility] Potassium, chris POC 4.4 3.3 - 4.9 mmol/L [facility] Comment: Interpretive Data This method is not able to assess for hemolysis, which may falsely increase potassium concentrations. If further testing is needed to evaluate this result, consider in-laboratory plasma potassium. Current Interpretive Data was last revised on 2022. Glucose, chris POC 170 70 - 199 mg/dL [facility] Ionized Calcium, chris POC 4.90 4.50 - 5.10 mg/dL [facility] Blood 09/13/2024 8:54 AM CDT 09/13/2024 8:54 AM CDT Jaya Grier MD LAB POCT ORDERABLES - DEVICE Antonio al Result CERNER [facility] [address] [facility] Department [place] [address] * OK INJECTION SINGLE/PHOTO MASK CLEANER TRIGGER POINT 1/2 MUSCLES (09/08/2024 9:00 AM [...] well with no immediate complications Brook Muhammad DAIRY FEED SALES CONSULTANT IN CLINIC/BEDSIDE ORDERABLE S Final Result * CT Head WO Contrast (09/07/2024) Anatomical Region Laterality Modality Head and Neck N/A Computed Tomogra phy Historical Provider IMG CT PROCEDURES Final R esult * POCT hemoglobin A1c (08/22/2024 8:55 AM YARN MERCERIZER OPERATOR HELPER) Hemoglobin A1C, POC 7.7 4.0 - 5.6 % Blood 08/22/2024 8:55 AM YARN MERCERIZER OPERATOR HELPER Smith Gibbs MD POINT OF CARE TEST ORDERABLE S Final Result * Respiratory pathogen panel Nasopharyngeal (07/31/2024 1:02 PM YARN MERCERIZER OPERATOR HELPER) Influenza A RNA Not Detected Not Detected [...] Parainfluenza 4 RNA Not Detected Not Detected [facility] B. pertussis DNA Not Detected Not Detected CERNER B. parapertussis DNA Not Detected Not Detected [facility] C. pneumoniae DNA Not Detected Not Detected CERNER M. pneumoniae DNA Not Detected Not Detected [facility] Comment: Interpretive Data The Instantis FilmArray Respiratory Panel (RP2.1) assay is a [...] assay has FDA clearance for testing of DAIRY FEED SALES CONSULTANT swabs. The performance characteristics of this assay have been determined by [facility]. Current interpretive data was last revised on 2021. Nasopharyngeal 07/31/2024 1: 02 PM YARN MERCERIZER OPERATOR HELPER 07/31/2024 1:05 PM YARN MERCERIZER OPERATOR HELPER Narrative NILSA - 07/31/2024 2:05 PM YARN MERCERIZER OPERATOR HELPER Is the Patient experiencing symptoms consistent with COVID?->Yes Surveillance testing for transplant patient?->No Lucy Lucero MD LAB MICROBIOLOGY - [facility] ORDERABLES Final Result [facility] [address] [address] Department [place] [address] * Diabetic Eye Exam (07/27/2024 12:37 PM YARN MERCERIZER OPERATOR HELPER) Historical Provider HEALTH MAINTENANCE Final Result * HM DIABETES EYE EXAM (07/22/2024) Historical Provider HEALTH MAINTENANCE Final Result * XR Chest 1 View (07/15/2024 1:11 PM YARN MERCERIZER OPERATOR HELPER) Anatomical Region Laterality Modality Body, Chest N/A Computed Radiogr aphy 07/15/2024 1:35 PM YARN MERCERIZER OPERATOR HELPER Narrative 07/15/2024 1:36 PM YARN MERCERIZER OPERATOR HELPER EXAM DESCRIPTION: XR CHEST 1 VIEW REASON [...] Yosef Lindo D.O. PS T: Report ID: [id number] Reading Location: [id number] Procedure Note Yosef Lindo, DO - 07/15/2024 [...] Yosef Lindo D.O. PS T: Report ID: [id number] Reading Location: [id number] us Edgardo Kauffman MD IMG XR PROCEDURES Final Re sult * RPL DRE CVC W/O PUMP [id number] (07/15/2024 12:40 PM YARN MERCERIZER OPERATOR HELPER) Anatomical Region Laterality Modality X-Ray Angiograph y Narrative 07/15/2024 12:45 PM YARN MERCERIZER OPERATOR HELPER Please see OpNote for result. us Edgardo Kauffman MD CV CARDIAC CATH PROCEDURES Final Result * XR Chest 1 View (07/14/2024 1:16 PM YARN MERCERIZER OPERATOR HELPER) Anatomical Region Laterality Modality Body, Chest N/A Computed Radiogr aphy 07/14/2024 1:20 PM YARN MERCERIZER OPERATOR HELPER Narrative 07/14/2024 1:22 PM YARN MERCERIZER OPERATOR HELPER EXAM DESCRIPTION: XR CHEST 1 VIEW REASON [...] Salvador Villa M.D. KR T: Report ID: [id number] Reading Location: [id number] Procedure Note Salvador Villa MD - 07/14/2024 [...] Salvador Villa M.D. KR T: Report ID: [id number] Reading Location: [place] [address] Edgardo Kauffman MD IMG XR PROCEDURES Final Re sult * (ABNORMAL) eGFR (07/14/2024 12:34 PM YARN MERCERIZER OPERATOR HELPER) eGFR 7(L) >=60 mL/min/1. 73 m2 Comment: [...] reviewed 2021. Blood 07/14/2024 12:3 4 PM YARN MERCERIZER OPERATOR HELPER 07/14/2024 12:41 PM YARN MERCERIZER OPERATOR HELPER Edgardo Kauffman MD LAB BLOOD ORDERABLES Final Result CARLOS ENRIQUERQT [address] [facility] Department [place] [address] * (ABNORMAL) Differential, auto (07/14/2024 12:34 PM YARN MERCERIZER OPERATOR HELPER) Neutrophil abs 7.8(H) 1.5 - 6.5 K/cumm Imm gran abs 0.0 0.0 - 0.1 K/cumm [facility] Lymphocyte abs 1.5 0.8 - 3.3 K/cumm [facility] Monocyte abs 0.5 0.2 - 0.8 K/cumm [facility] Eosinophil abs 0.2 0.0 - 0.5 K/cumm [facility] Basophil abs 0.0 0.0 - 0.1 K/cumm [facility] Neutrophil pct 78.1 % [facility] Comment: Interpretive Data Percent cell count reference ranges are not reported, since discordance with absolute values may lead to misinterpretation of CBC data. Current Interpretive Data was last revised on 2017. Imm gran pct 0.4 % [facility] Comment: Interpretive Data Percent cell count reference ranges are not reported, since discordance with absolute values may lead to misinterpretation of CBC data. Current Interpretive Data was last revised on 2017. Lymphocyte pct 14.8 % [facility] Comment: Interpretive Data Percent cell count reference ranges are not reported, since discordance with absolute values may lead to misinterpretation of CBC data. Current Interpretive Data was last revised on 2017. Monocyte pct 4.7 % [facility] Comment: Interpretive Data Percent cell count reference ranges are not reported, since discordance with absolute values may lead to misinterpretation of CBC data. Current Interpretive Data was last revised on 2017. Eosinophil pct 1.6 % [facility] Comment: Interpretive Data Percent cell count reference ranges are not reported, since discordance with absolute values may lead to misinterpretation of CBC data. Current Interpretive Data was last revised on 2017. Basophil pct 0.4 % [facility] Comment: Interpretive Data Percent cell count reference ranges are not reported, since discordance with absolute values may lead to misinterpretation of CBC data. Current Interpretive Data was last revised on 2017. Blood 07/14/2024 12:3 4 PM YARN MERCERIZER OPERATOR HELPER 07/14/2024 12:41 PM YARN MERCERIZER OPERATOR HELPER Edgardo Kauffman MD LAB BLOOD ORDERABLES Final Result Performing Organization Address [facility] de Phone Number NILSA [address] [address] * (ABNORMAL) CBC with auto differential (07/14/2024 12:34 PM YARN MERCERIZER OPERATOR HELPER) [facility] WBC 9.9 3.8 - 9.9 K/cumm Hgb 11.6(L) 11.9 - 15.5 g/dL [facility] Hct 35.3(L) 35.6 - 45.5 % [facility] Plt 241 150 - 400 K/cumm [facility] MPV 11.0 9.1 - 12.3 fL [facility] RBC 3.63(L) 3.90 - 5.20 M/cumm [facility] MCV 97.2(H) 81.3 - 96.4 fL [facility] MCH 32.0 27.1 - 33.3 pg [facility] MCHC 32.9 32.3 - 35.7 g/dL [facility] RDW CV 15.4(H) 11.1 - 14.9 % [facility] RDW SD 54.8(H) 35.7 - 48.1 fL [facility] NRBC abs 0.00 0.00 - 0.01 K/cumm [facility] Blood 07/14/2024 12:3 4 PM YARN MERCERIZER OPERATOR HELPER 07/14/2024 12:41 PM YARN MERCERIZER OPERATOR HELPER Edgardo Kauffman MD LAB BLOOD ORDERABLES Final Result Performing Organization Address [facility] Co de Phone Number NILSA [address] [place] [address] * (ABNORMAL) Basic metabolic panel (07/14/2024 12:34 PM YARN MERCERIZER OPERATOR HELPER) [facility] Sodium 138 135 - 145 mmol/L Potassium, pl 4.1 3.3 - 4.9 mmol/L [facility] Comment:Hemolyzed; Potassium value may be falsely elevated by as much as 1.0 mmol/L. Suggest redraw and reanalysis. Chloride 100 97 - 110 mmol/L [facility] CO2 25 22 - 32 mmol/L [facility] Anion gap 13 2 - 15 mmol/L [facility] BUN 51(H) 6 - 25 mg/dL [facility] Creatinine 6.22(H) 0.60 - 1.10 mg/dL [facility] Glucose 155 70 - 199 mg/dL [facility] Comment: Interpretive Data Fasting glucose >/= [...] 2022. Calcium 9.4 8.5 - 10.3 mg/dL [facility] Blood 07/14/2024 12:3 4 PM YARN MERCERIZER OPERATOR HELPER 07/14/2024 12:41 PM YARN MERCERIZER OPERATOR HELPER us Edgardo Kauffman MD LAB BLOOD ORDERABLES Final Result NILSA [address] Department [place] [address] * Surgical pathology (07/13/2024 11:10 AM YARN MERCERIZER OPERATOR HELPER) Tissue specimen (specimen) (Duodenum, Biopsy) 07/13/2024 11:10 AM YARN MERCERIZER OPERATOR HELPER Tissue specimen (specimen) (Gastric/Stomach biopsy) 07/13/2024 11:11 AM YARN MERCERIZER OPERATOR HELPER Tissue specimen (specimen) (Gastric/Stomach biopsy) 07/13/2024 11:11 AM YARN MERCERIZER OPERATOR HELPER Tissue specimen (specimen) (Esophageal biopsy) 07/13/2024 11:13 AM YARN MERCERIZER OPERATOR HELPER Narrative PATHOLOGY [facility] - 07/14/2024 1:59 PM YARN MERCERIZER OPERATOR HELPER [facility] Department of Pathology [address] [place] [phone] Note to Patients: This report may contain [...] : 1950 (Age: 73) Gender: F Address: [address] [place] [address] [facility] #: [id number] Service: Gastro [facility]: [facility] cm. Entirely submitted. Labeled D1. Jar 0. [facility]/07/13/2024 13:31 CAMILA Johnson, PA (ASCP) Microscopic slide review and interpretation for this case was performed at [facility], Department of Surgical Pathology, [address], [id number], [place] [address] CLIA # [id number] us Jaya Grier MD LAB PATHOLOGY ORDERABLES Final R esult PATHOLOGY [facility] * EGD (07/13/2024 10:59 AM YARN MERCERIZER OPERATOR HELPER) Anatomical Region Laterality Modality Other Narrative Procedure Note Jaya Grier MD - 07/13/2024 10:59 AM CST [facility] Patient Name: Sixto Chakraborty Procedure Date: 07/13/2024 10:59 AM Date of : 1950 Admit Type: Outpatient Age: 73 Gender: Female Attending MD: Jaya Grier M.D. Room: [facility] RO[facility] 06 Note Status: Finalized Procedure: [...] On: 07/13/2024 10:59 AM Recognized by the [employer] for promoting quality in endoscopy Jaya Grier MD ENDOSCOPY PROCEDURES Final Resul t * (ABNORMAL) POC Blood Gas and Chemistries, Venous - (07/13/2024 10:12 AM YARN MERCERIZER OPERATOR HELPER) pH,chris POC 7.40 7.32 - 7.43 pCO2, chris POC 49 40 - 50 mmHg [facility] pO2,chris POC 36 mmHg [facility] Comment: Interpretive Data No reference range established. Current interpretive data was last revised 2020. HCO3, chris (Calc) POC 30 20 - 30 mmol/L [facility] Base excess, chris POC 4 mmol/L [facility] Comment: Interpretive Data No reference range established. Current interpretive data was last revised 2020. Hemoglobin, chris POC 13.9 11.9 - 15.5 g/dL [facility] Hematocrit, chris POC 41.0 35.6 - 45.5 % [facility] Sodium, chris POC 134(L) 135 - 145 mmol/L [facility] Potassium, chris POC 4.6 3.3 - 4.9 mmol/L [facility] Comment: Interpretive Data This method is [...] mg/dL NILSA Blood 07/13/2024 10:1 2 AM YARN MERCERIZER OPERATOR HELPER 07/13/2024 10:12 AM YARN MERCERIZER OPERATOR HELPER Jaya Grier MD LAB POCT ORDERABLES - DEVICE Fin al Result Performing Organization Address [facility]/ZIP Co de Phone Number CARLOS ENRIQUE[address] [place] [address] * (ABNORMAL) Troponin T high-sensitivity 2-hour (07/12/2024 1:59 PM YARN MERCERIZER OPERATOR HELPER) Trop T hs 63(H) <=14 ng/L Comment: Interpretive Data For further hscTnT resources including the diagnostic algorithm and an aid in interpretation, copy and paste this link: https://nrl.testcatalog.org/show/hsTrop Current Interpretive Data last revised 2020. Testing performed by: [address] [address] Trop T hs delta -5 ng/L NILSA Comment:Testing performed by : [address] [address] Trop T hs interp Equivocal NILSA Comment:Testing performed by : [address] [address] Blood 07/12/2024 1:59 PM YARN MERCERIZER OPERATOR HELPER 07/12/2024 2:20 PM YARN MERCERIZER OPERATOR HELPER Donna CUEVA LAB BLOOD ORDERABLES Final Re sult Performing Organization Address City/[facility]/ZIP Co de Phone Number [facility] [address] [place] [address] [place] [address] * (ABNORMAL) Urinalysis reflex to microscopic and culture Urine (07/12/2024 1:05 PM YARN MERCERIZER OPERATOR HELPER) Color, ur Mikayla Yellow Comment:Testing performed by : [address] [address] Clarity, ur Turbid(A) Clear NILSA Comment:Testing performed by : [address] [address] Specific gravity, ur 1.006 1.003 - 1.030 NILSA Comment:Testing performed by : [address] [address] pH, urine 6.0 NILSA Comment: Interpretive Data U rine pH is affected by diet, medications, systemic acid-base disturbances, and renal tubular function. pH may affect urinary stone formation. For example, urine pH below 6.0 may help reduce the tendency for calcium phosphate stones and pH greater than 6.0 may reduce the tendency for uric acid stone formation. Source: [facility] n[address] Current Interpretive Data was last revised on 2017 Testing performed by: [address] [address] Protein, ur ql 2+(A) Negative NILSA Comment:Testing performed by : [address] [address] Glucose, ur ql 1+(A) Negative NILSA Comment:Testing performed by : [address] [address] Ketones, ur Negative Negative NILSA Comment:Testing performed by : [address] [address] Bilirubin, ur Negative Negative NILSA Comment:Testing performed by : [address] [address] Blood, ur 2+(A) Negative NILSA Comment:Testing performed by : [address] [address] Urobilinogen, ur <2.0 <2.0 mg/dL NILSA Comment:Testing performed by : [address] [address] Nitrite, ur Negative Negative NILSA Comment:Testing performed by : [address] [address] Leukocyte esterase, ur 4+(A) Negative NILSA RODRIGES Comment:Testing performed by : [address] [address] UA reflex comment Reflex to microscopic UA will be performed. NILSA RODRIGES Comment:Testing performed by : [address] [address] Urine 07/12/2024 1:05 PM YARN MERCERIZER OPERATOR HELPER 07/12/2024 1:09 PM YARN MERCERIZER OPERATOR HELPER Donna CUEVA LAB MICROBIOLOGY - GENERAL OR DERABLES Final Result NILSA RODRIGES [address] [facility] Department of Laboratories [place], [place] [id number] * Drugs of Abuse Screen, Urine without Confirmation (07/12/2024 1:05 PM YARN MERCERIZER OPERATOR HELPER) Amphetamine, ur Not Detected CutOff 500ng/mL Comment: Interpretive Data - Amphetamines: Samples containing greater than 500 ng/mL d-methamphetamine or other cross-reacting amphetamine compounds are reported as positive. Amphetamine immunoassays are subject to significant false positive rates due to cross-reactivity of non-amphetamine drugs. Confirmatory testing required for definitive results. Current Interpretive Data was last reviewed 2023. Testing performed by: [address] [address] Barbiturates, ur Not Detected CutOff 200ng/mL NILSA RODRIGES Comment: Interpretive Data - Barbiturates: Samples containing greater than 200 ng/mL secobarbital or other cross-reacting barbiturate compounds are reported as positive. False positive and false negative results are possible. Confirmatory testing required for definitive results. Current Interpretive Data was last reviewed 2023. Testing performed by: [address] [address] Benzodiazepines, ur Not Detected CutOff 100ng/mL NILSA RODRIGES Comment: Interpretive Data - Benzodiazepines: Samples containing greater than 100 ng/mL nordiazepam or other cross-reacting compounds are reported as positive. False positive and false negative results are possible. Confirmatory testing required for definitive results. Current Interpretive Data was last reviewed 2023. Testing performed by: [address], [place]., [address] Cannabinoids, ur Not Detected CutOff 50 ng/mL [facility] Comment: Interpretive Data - Cannabinoids: Samples containing greater than 50 ng/mL delta-9 THC -COOH or other cross- reacting compounds are reported as positive. False positive and false negative results are possible. Confirmatory testing required for definitive results. Current Interpretive Data was last reviewed 2023. Testing performed by: [address], [place]., [address] Cocaine, ur Not Detected CutOff 150ng/mL [facility] Comment: Interpretive Data - Cocaine: Samples containing greater than 150 ng/mL benzoylecgonine or other cross- reacting compounds are reported as positive. False positive and false negative results are possible. Confirmatory testing required for definitive results. Current Interpretive Data was last reviewed 2023. Testing performed by: [address], [place]., [address] Fentanyl, Ur Not Detected Cutoff 1 ng/mL [facility] Comment: Interpretive Data - Fentanyl: Samples containing greater than 1 ng/mL fentanyl or other cross-reacting fentanyl compounds are reported as positive. False positive and false negative results are possible. Confirmatory testing required for definitive results. Current Interpretive Data was last reviewed 2023. Testing performed by: [address], [place]., [address] Methadone, ur Not Detected CutOff 300ng/mL [facility] Comment: Interpretive Data - Methadone: Samples containing greater than 300 ng/mL d,l-methadone or other cross-reacting compounds are reported as positive. False positive and false negative results are possible. Confirmatory testing required for definitive results. Current Interpretive Data was last reviewed 2023. Testing performed by: [address], [place]., [address] Opiates, ur Not Detected CutOff 300ng/mL [facility] Comment: Interpretive Data - Opiates: Samples containing greater than 300 ng/mL morphine or other cross-reacting compounds are reported as positive. False positive and false negative results are possible. Confirmatory testing required for definitive results. Current Interpretive Data was last reviewed 2023. Testing performed by: [address], [place]., [address] Oxycodone, ur Not Detected CutOff 100ng/mL NILSA Comment: Interpretive Data - Oxycodone: Samples containing greater than 100 ng/mL oxycodone or other cross-reacting compounds are reported as positive. False positive and false negative results are possible. Confirmatory testing required for definitive results. Current Interpretive Data was last reviewed 2023. Testing performed by: [address] [address] Phencyclidine, ur Not Detected CutOff 25 ng/mL NILSA Comment: Interpretive Data - Phencyclidine: Samples containing greater than 25 ng/mL phencyclidine or other cross-reacting compounds are reported as positive. False positive and false negative results are possible. Confirmatory testing required for definitive results. Current Interpretive Data was last reviewed 2023. Testing performed by: [address] [address] Urine Creatinine 74 mg/dL NILSA Comment: Interpretive Data Urine Creatinine: < 10 mg/dL is extremely dilute = or > 10 but < 20 mg/dL is dilute = or > 20 mg/dL is normal Current Interpretive Data was last revised on 2017. Testing performed by: [address] [address] Urine 07/12/2024 1:05 PM YARN MERCERIZER OPERATOR HELPER 07/12/2024 1:09 PM YARN MERCERIZER OPERATOR HELPER Narrative [facility] - 07/12/2024 1:31 PM YARN MERCERIZER OPERATOR HELPER Drug of Abuse screening is performed by immunoassay for medical purposes only. This is not to be used for Pain Management purposes. us Donna CUEVA LAB URINE ORDERABLES Final Re sult [facility] [address] [facility] Department [place] [address] * (ABNORMAL) Urinalysis, microscopic only (07/12/2024 1:05 PM YARN MERCERIZER OPERATOR HELPER) WBC, ur >50(A) 0 - 5 /HPF Comment:Testing performed by : [address] [address] RBC, ur 11-20(A) 0 - 2 /HPF NILSA Comment:Testing performed by : [address] [address] Bacteria, ur 4+(A) NILSA Comment:Testing performed by : [facility], [address] [place] [address]., [address] Culture Reflex Comment Reflex to urine culture will be performed. NILSA Comment:Testing performed by : [address] [address] Urine 07/12/2024 1:05 PM YARN MERCERIZER OPERATOR HELPER 07/12/2024 1:09 PM YARN MERCERIZER OPERATOR HELPER Donna CUEVA LAB URINE ORDERABLES Final Re sult NILSA RODRIGES 45[address] [facility] Department [place] [address] * (ABNORMAL) Urine culture Urine (07/12/2024 1:05 PM YARN MERCERIZER OPERATOR HELPER) Report Final Report: Greater than or equal to 100,000 colonies/mL of Escherichia coli (.) Comment:Testing performed by : [facility], [address] [facility] [place]., [address] Organism ESCHERICHIA COLI NILSA Urine 07/12/2024 1:05 PM YARN MERCERIZER OPERATOR HELPER 07/12/2024 3:03 PM YARN MERCERIZER OPERATOR HELPER Narrative NILSA - 07/14/2024 2:20 PM YARN MERCERIZER OPERATOR HELPER Urine culture reflexed based upon urinalysis results. Testing performed by [facility] Microbiology Laboratory ([phone]) Organism Antibiotic Method Susceptibility Escherichia coli Ampicillin [...] - GENERAL OR DERABLES Final Result NILSA [address] [facility] Department [place] [address] * (ABNORMAL) Troponin T high-sensitivity series (baseline, 2hr, 4hr, 6hr) (07/12/2024 11:53 AM YARN MERCERIZER OPERATOR HELPER) Pathologist [facility] Trop T hs 68(H) <=14 ng/L Comment: REDRAW: HEMOLYZED SPECIMEN Interpretive Data For further hscTnT resources including the diagnostic algorithm and an aid in interpretation, copy and paste this link: https://nrl.testcatalog.org/show/hsTrop Current Interpretive Data last revised 2020. Testing performed by: [address] [address] Blood 07/12/2024 11:5 3 AM YARN MERCERIZER OPERATOR HELPER 07/12/2024 11:58 AM YARN MERCERIZER OPERATOR HELPER us Donna CUEVA LAB BLOOD ORDERABLES Final Re sult NILSA 9760 [facility] Department [place] [address] * Influenza A/B, RSV, and COVID-19 PCR Nasopharyngeal (07/12/2024 11:53 AM YARN MERCERIZER OPERATOR HELPER) [facility] COVID-19 RNA Negative Negative Comment:Testing performed by : [address] [address] Influenza A RNA Negative Negative NILSA Comment:Testing performed by : [address] [address] Influenza B RNA Negative Negative NILSA Comment:Testing performed by : [address] [address] RSV RNA Negative Negative NILSA Comment: Interpretive data: Testing performed by [facility]. This test is performed using the [employer] Xpress CoV-2/Flu/RSV plus assay. This is a multiplex, real-time reverse transcriptase PCR assay intended for the qualitative detection of nucleic acid from SARS-CoV-2, influenza A, influenza B, and respiratory syncytial virus. This assay has been cleared by the [place] Food and Drug administration. The performance characteristics have been verified by the [facility]. Results must be considered in the clinical context, and a negative result does not rule out infection. Interpretive Data last revised 2023 Testing performed by: [facility], [address] [place] [address]., [address] Nasopharyngeal 07/12/2024 11 :53 AM YARN MERCERIZER OPERATOR HELPER 07/12/2024 11:58 AM YARN MERCERIZER OPERATOR HELPER Narrative NILSA - 07/12/2024 12:38 PM YARN MERCERIZER OPERATOR HELPER Is the Patient experiencing symptoms consistent with COVID?->Unknown Donna CUEVA LAB MICROBIOLOGY - GENERAL OR DERABLES Final Result NILSA 09[address] [facility] Department [place] [address] * (ABNORMAL) eGFR (07/12/2024 11:53 AM YARN MERCERIZER OPERATOR HELPER) eGFR 10(L) >=60 mL/min/1. 73 m2 Comment: [...] reviewed 2021. Testing performed by: [facility], [address] [place] [address]., [address] Blood 07/12/2024 11:5 3 AM YARN MERCERIZER OPERATOR HELPER 07/12/2024 11:58 AM YARN MERCERIZER OPERATOR HELPER us Donna CUEVA LAB BLOOD ORDERABLES Final Re sult NILSA 45[address] [facility] Department [place] [address] * (ABNORMAL) Differential, auto (07/12/2024 11:53 AM YARN MERCERIZER OPERATOR HELPER) Neutrophil abs 9.2(H) 1.5 - 6.5 K/cumm Comment:Testing performed by : [address] [address] Imm gran abs 0.1 0.0 - 0.1 K/cumm NILSA Comment:Testing performed by : [address] [address] Lymphocyte abs 1.5 0.8 - 3.3 K/cumm NILSA Comment:Testing performed by : [address] [address] Monocyte abs 0.5 0.2 - 0.8 K/cumm NILSA Comment:Testing performed by : [address] [address] Eosinophil abs 0.1 0.0 - 0.5 K/cumm NILSA Comment:Testing performed by : [address] [address] Basophil abs 0.0 0.0 - 0.1 K/cumm NILSA Comment:Testing performed by : [address] [address] Neutrophil pct 81.0 % NILSA Comment: Interpretive Data Percent cell count reference ranges are not reported, since discordance with absolute values may lead to misinterpretation of CBC data. Current Interpretive Data was last revised on 2017. Testing performed by: [address] [address] Imm gran pct 0.4 % NILSA Comment: Interpretive Data Percent cell count reference ranges are not reported, since discordance with absolute values may lead to misinterpretation of CBC data. Current Interpretive Data was last revised on 2017. Testing performed by: [address] [address] Lymphocyte pct 13.4 % [facility] Comment: Interpretive Data Percent cell count reference ranges are not reported, since discordance with absolute values may lead to misinterpretation of CBC data. Current Interpretive Data was last revised on 2017. Testing performed by: [address] [address] Monocyte pct 4.2 % [facility] Comment: Interpretive Data Percent cell count reference ranges are not reported, since discordance with absolute values may lead to misinterpretation of CBC data. Current Interpretive Data was last revised on 2017. Testing performed by: [address] [address] Eosinophil pct 0.6 % [facility] Comment: Interpretive Data Percent cell count reference ranges are not reported, since discordance with absolute values may lead to misinterpretation of CBC data. Current Interpretive Data was last revised on 2017. Testing performed by: [address] [address] Basophil pct 0.4 % [facility] Comment: Interpretive Data Percent cell count reference ranges are not reported, since discordance with absolute values may lead to misinterpretation of CBC data. Current Interpretive Data was last revised on 2017. Testing performed by: [address] [address] Blood 07/12/2024 11:5 3 AM YARN MERCERIZER OPERATOR HELPER 07/12/2024 11:58 AM YARN MERCERIZER OPERATOR HELPER us Donna CUEVA LAB BLOOD ORDERABLES Final Re sult NILSA RODRIGES [address] [facility] Department [place] [address] * Thyroid Function [place] (07/12/2024 11:53 AM YARN MERCERIZER OPERATOR HELPER) TSH 1.22 0.30 - 4.20 mcIUnit/mL Comment:Testing performed by : [address] [address] Blood 07/12/2024 11:5 3 AM YARN MERCERIZER OPERATOR HELPER 07/12/2024 11:58 AM YARN MERCERIZER OPERATOR HELPER us Donna CUEVA LAB BLOOD ORDERABLES Final Re sult [facility] [address] [facility] Department [place] [address] * (ABNORMAL) CBC with auto differential (07/12/2024 11:53 AM YARN MERCERIZER OPERATOR HELPER) WBC 11.3(H) 3.8 - 9.9 K/cumm Comment:Testing performed by : [address] [address] Hgb 12.3 11.9 - 15.5 g/dL NILSA Comment:Testing performed by : [address] [address] Hct 37.2 35.6 - 45.5 % NILSA Comment:Testing performed by : [address] [address] Plt 230 150 - 400 K/cumm NILSA Comment:Testing performed by : [address] [address] MPV 10.7 9.1 - 12.3 fL NILSA Comment:Testing performed by : [address] [address] RBC 3.85(L) 3.90 - 5.20 M/cumm NILSA Comment:Testing performed by : [address] [address] MCV 96.6(H) 81.3 - 96.4 fL NILSA Comment:Testing performed by : [address] [address] MCH 31.9 27.1 - 33.3 pg NILSA RODRIGES Comment:Testing performed by : [address] [address] MCHC 33.1 32.3 - 35.7 g/dL NILSA RODRIGES Comment:Testing performed by : [address] [address] RDW CV 15.7(H) 11.1 - 14.9 % NILSA RODRIGES Comment:Testing performed by : [address] [address] RDW SD 55.5(H) 35.7 - 48.1 fL NILSA RODRIGES Comment:Testing performed by : [address] [address] NRBC abs 0.00 0.00 - 0.01 K/cumm NILSA RODRIGES Comment:Testing performed by : [address] [address] Blood 07/12/2024 11:5 3 AM YARN MERCERIZER OPERATOR HELPER 07/12/2024 11:58 AM YARN MERCERIZER OPERATOR HELPER us Donna CUEVA LAB BLOOD ORDERABLES Final Re sult NILSA [address] Department [place] [address] * (ABNORMAL) Comprehensive metabolic panel (07/12/2024 11:53 AM YARN MERCERIZER OPERATOR HELPER) Sodium 134(L) 135 - 145 mmol/L Comment:Testing performed by : [address] [address] Potassium, pl 4.6 3.3 - 4.9 mmol/L NILSA RODRIGES Comment: HEMOLYZED: Hemolysis interferes with the above test. Testing performed by: [address] [address] Chloride 93(L) 97 - 110 mmol/L NILSA Comment:Testing performed by : [address] [address] CO2 28 22 - 32 mmol/L NILSA RODRIGES Comment:Testing performed by : [address] [address] Anion gap 13 2 - 15 mmol/L NILSA RODRIGES Comment:Testing performed by : [address] [address] BUN 33(H) 6 - 25 mg/dL [facility] Comment:Testing performed by : [address] [address] Creatinine 4.60(H) 0.60 - 1.10 mg/dL [facility] Comment:Testing performed by : [address] [address] Glucose 177 70 - 199 mg/dL [facility] Comment: Interpretive Data Fasting glucose >/= [...] was last revised 2022. Testing performed by: [address] [address] Calcium 9.5 8.5 - 10.3 mg/dL [facility] Comment:Testing performed by : [address] [address] Bilirubin, total 0.4 0.1 - 1.2 mg/dL [facility] Comment:Testing performed by : [address] [address] Protein, pl 8.2 6.5 - 8.5 g/dL [facility] Comment:Testing performed by : [address] [address] Albumin 3.9 3.5 - 5.0 g/dL [facility] Comment:Testing performed by : [address] [address] Alk phos 95 40 - 130 Units/L [facility] Comment:Testing performed by : [address] [address] ALT 24 7 - 45 Units/L [facility] Comment: HEMOLYZED: Hemolysis interferes with the above test. Testing performed by: [address] [address] AST 26 10 - 45 Units/L NILSA Comment: HEMOLYZED: Hemolysis interferes with the above test. Testing performed by: [facility], [address] [place] [address], [place]., [address] Blood 07/12/2024 11:5 3 AM YARN MERCERIZER OPERATOR HELPER 07/12/2024 11:58 AM YARN MERCERIZER OPERATOR HELPER Donna CUEVA LAB BLOOD ORDERABLES Final Re sult NILSA 360[address] [facility] Department of Laboratories [place], [place] [id number] * ECG 12 lead (07/12/2024 11:48 AM YARN MERCERIZER OPERATOR HELPER) Ventricular Rate EKG/Min 77 BPM [facility] Atrial Rate 77 BPM [facility] OK-Interval (MSEC) 154 ms [facility] QRS-Interval (MSEC) 66 ms [facility] QT-Interval (MSEC) 412 ms [facility] QTc 466 ms [facility] P [place] 72 degrees [facility] R [place] 6 degrees [facility] T [place] 62 degrees [facility] Diagnosis Normal sinus rhythm Normal ECG When compared with ECG of 21-APR-2024 10:35, No significant change was found Confirmed by DIAMOND GUTIERREZ M.D. ([id number]) on 07/13/2024 9:26:23 PM [facility] 07/12/2024 11:4 8 AM YARN MERCERIZER OPERATOR HELPER 07/13/2024 9:26 PM YARN MERCERIZER OPERATOR HELPER Donna CUEVA ECG ORDERABLES Final Result Performing Organization Address [facility]/ZIP Co de Phone Number [facility] [employer] [facility] * CT Cervical Spine WO Contrast (07/12/2024 10:38 AM YARN MERCERIZER OPERATOR HELPER) Anatomical Region Laterality Modality Spine N/A Computed Tomogra phy 07/12/2024 11:0 8 AM YARN MERCERIZER OPERATOR HELPER Narrative 07/12/2024 11:13 AM YARN MERCERIZER OPERATOR HELPER EXAM DESCRIPTION: CT CERVICAL SPINE WO CONTRAST [...] Wally Hernandez M.D. RB: AMADA Report ID: [id number] Reading Location: [id number] Procedure Note Wally Hernandez MD - 07/12/2024 [...] Wally Hernandez M.D. RB: AMADA Report ID: [id number] Reading Location: [place] [address] PROCEDURES Final Resul t * CT Facial Bones WO Contrast (07/12/2024 10:38 AM YARN MERCERIZER OPERATOR HELPER) Anatomical Region Laterality Modality Head and Neck N/A Computed Tomogra phy 07/12/2024 11:0 3 AM YARN MERCERIZER OPERATOR HELPER Narrative 07/12/2024 11:08 AM YARN MERCERIZER OPERATOR HELPER EXAM DESCRIPTION: CT FACIAL BONES WO CONTRAST [...] Wally Hernandez M.D. RB: AMADA Report ID: [id number] Reading Location: [place] [address] Procedure Note Wally Hernandez MD - 07/12/2024 [...] Wally Hernandez M.D. RB: AMADA Report ID: [id number] Reading Location: [place] [address] PROCEDURES Final Resul t * CT Head WO Contrast (07/12/2024 10:38 AM YARN MERCERIZER OPERATOR HELPER) Anatomical Region Laterality Modality Head and Neck N/A Computed Tomogra phy 07/12/2024 10:5 9 AM YARN MERCERIZER OPERATOR HELPER Narrative 07/12/2024 11:03 AM YARN MERCERIZER OPERATOR HELPER EXAM DESCRIPTION: CT HEAD WO CONTRAST REASON [...] Wally Hernandez M.D. RB: AMADA Report ID: [id number] Reading Location: [id number] Procedure Note Wally Hernandez MD - 07/12/2024 [...] Wally Hernandez M.D. RB: AMADA Report ID: [id number] Reading Location: [id number] Donna CUEVA IMG CT PROCEDURES Final Resul t * XR Shoulder Right 2 or More Views (07/12/2024 10:08 AM YARN MERCERIZER OPERATOR HELPER) Anatomical Region Laterality Modality Upper Extremities, Shoulder Right Comp uted Radiography 07/12/2024 10:1 4 AM YARN MERCERIZER OPERATOR HELPER Narrative 07/12/2024 10:15 AM YARN MERCERIZER OPERATOR HELPER EXAM DESCRIPTION: XR SHOULDER RIGHT 2 OR [...] Wally Hernandez M.D. RB: AMADA Report ID: [id number] Reading Location: [id number] Procedure Note Wally Hernandez MD - 07/12/2024 [...] Wally Hernandez M.D. RB: AMADA Report ID: [id number] Reading Location: [id number] Julio Landeros DO IMG XR PROCEDURES Final Result * XR Shoulder Left 2 or More Views (07/12/2024 10:08 AM YARN MERCERIZER OPERATOR HELPER) Anatomical Region Laterality Modality Upper Extremities, Shoulder Left Comp uted Radiography 07/12/2024 10:1 3 AM YARN MERCERIZER OPERATOR HELPER Narrative 07/12/2024 10:14 AM YARN MERCERIZER OPERATOR HELPER EXAM DESCRIPTION: XR SHOULDER LEFT 2 OR [...] Wally Hernandez M.D. RB: AMADA Report ID: [id number] Reading Location: [id number] Procedure Note Wally Hernandez MD - 07/12/2024 [...] Wally Hernandez M.D. RB: AMADA Report ID: [id number] Reading Location: [id number] us Julio Landeros DO IMG XR PROCEDURES Final Result * POCT glucose (07/12/2024 9:33 AM YARN MERCERIZER OPERATOR HELPER) Glucose, POC 164 70 - 199 mg/dL Comment:Testing performed by : [address] [address] Glucose comment 1 Use This Result NILSA RODRIGES Comment:Testing performed by : [facility], [address] [place] [address]., [address] Blood 07/12/2024 9:33 AM YARN MERCERIZER OPERATOR HELPER 07/12/2024 9:33 AM YARN MERCERIZER OPERATOR HELPER Notinfile Unknown LAB POCT ORDERABLES - DEVICE F inal Result NILSA RODRIGES [address] [facility] Department [place] [address] * Lipid panel (05/16/2024 10:14 AM YARN MERCERIZER OPERATOR HELPER) Cholesterol 160 30 - 199 mg/dL Comment: [...] NILSA DIAS Blood 05/16/2024 10:1 4 AM YARN MERCERIZER OPERATOR HELPER 05/16/2024 10:50 AM YARN MERCERIZER OPERATOR HELPER Narrative NILSA LARISSA - 05/16/2024 11:23 AM YARN MERCERIZER OPERATOR HELPER These lab test should be done fasting. This means do not eat or drink for at least 12 hours prior to getting your blood drawn. us Smith Gibbs MD LAB BLOOD ORDERABLES Final R esult NILSA ZARATECH [address] [facility]. [place] [address] * Colonoscopy (03/01/2024 8:49 AM CDT) Anatomical Region Laterality Modality Other Narrative Procedure Note Jaya Grier MD - 03/01/2024 8:49 AM CDT [facility] Patient Name: Sixto Chakraborty Procedure Date: 03/01/2024 8:49 AM Date of : 1950 Admit Type: Outpatient Age: 73 Gender: Female Attending MD: Jaya Grier M.D. Room: [facility] ROOM 06 Note Status: Finalized Procedure: [...] The scope was passed under direct vision.The [id number] colonoscope was introduced through theanus and advanced [...] On: 03/01/2024 8:49 AM Recognized by the [employer] for promoting quality [...] taking vitamin-D. History of end-stage renal disease. Teleprinter Installer/Model: Symcat A (S/N [id number]) CLINICAL INFORMATION: Current height: 61 inches Maximum [...] Rafaela Paulino M.D. TW: TW Report ID: [id number] Reading Location: [id number] Procedure Note PaulinoRafaela MD - 01/22/2024 EXAM DESCRIPTION: DEXA AXIAL SKELETON BONE DENSITY 1 OR MORE SITES REASON FOR STUDY: 73 y/o year old F with given history of: Post menopausal status. History of taking vitamin-D. History of end-stagerenal disease. Teleprinter Installer/Model: [employer]cat A (S/N [id number]) CLINICAL INFORMATION: Current height: 61 inches Maximum [...] see below follow up recommendations. [facility] of low bone mineral [...] Rafaela Paulino M.D. TW: FAIZAN Report ID: [id number] Reading Location: [id number] us Cherelle Corcoran MD IMG DXA PROCEDURE [...] age 40, based on guidelines of the [employer] (ACR Practice Parameter for the Performance of Screening and Diagnostic Mammography) and [employer] and Gynecologists. For women [...] 19. Hep B core IgM Nonreactive Nonreactive [facility] Comment: Interpretive Data If HepB Core IgM Ab is reported as Equivocal, a new sample should be drawn in two weeks for testing. Current interpretive data was last revised on 19. Hep C Ab Nonreactive Nonreactive [facility] Comment: Interpretive Data Nonreactive: Antibodies to [...] last revised on 2019. HepBsAg Nonreactive Nonreactive [facility] Blood 10/15/2023 6:50 AM CDT 10/15/2023 7:07 AM CDT Jimbo Strauss MD LAB MICROBIOLOGY - GENERAL [facility] Final Result [facility] [address] Department [place] [address] * (ABNORMAL) Albumin Creatinine Ratio, Urine (10/10/2022 11:39 AM CDT) Albumin Ur 3,240.2 mg/L [facility] Comment: Interpretive Data No reference range established. Current interpretive data was last revised 2018. Testing performed by: [address] [address] Creatinine Ur 74.8 mg/dL [facility] Comment: Interpretive Data No reference range established. Current interpretive data was last revised 2018. Testing performed by: [address] [address] Albumin Creatinine Ratio, Ur 4,332(H) 1 - 29 mg/g [facility] Comment:Testing performed by : [address] [address] Urine 10/10/2022 11:3 9 AM CDT 10/10/2022 1:45 PM CDT us Markie Ryan MD LAB URINE ORDERABLES Final Re sult Performing Organization Address City/State/[facility] Co de Phone Number NILSA [address] [facility] Department [place] [address] from Last 3 Months or Most Recently Relevant to Health Maintenance Insurance MEDICARE [facility] Address: [address] [address] MEDICARE [employer] MEDICARE [facility] MEDICARE [facility] Address: [address] [address] [place] [address] [facility] Advance Directives For more information, please contact: [phone] Documents on File Type Date Recorded Patient Barrel Bander Expl anation ADVANCE DIRECTIVE 07/15/2024 7:58 AM Power of Aviation Program Manager-Medical ADVANCE DIRECTIVE 02/02/2024 12:34 PM Erik r of Aviation Program Manager-Medical * Full Code (Latest Code Status on [...] Gayle Daughter Health Care Agent Care Teams Electronics Hardware Design Engineer Relationship Specialty Start Date End Date Cherelle Corcoran MD PCP - General Family Medicine 08/30/19 Mark Queen MD Consulting Physician Infectious Diseases 01/10/20 Rudolph Welch MD [address] [facility] [place] [address] Consulting Physician Infectious Diseases 12/05/22 Markie Ryan MD [address] [facility] [place] [address] Consulting Physician Nephrology 12/05/22 [place] [id number] [address] Consulting Physician Nephrology 10/22/23 Jaya Grier MD [address] [facility] [address] [place] [address] Consulting Physician Gastroenterology 02/01/24 Edgardo Kauffman MD [address] [facility] [place] [address] Surgeon Vascular Surgery 07/15/24
[2024-09-21 16:24] LABS: Alanine Aminotransferase 27 U/L (6-35); Albumin Level 4.2 g/dL (3.5-5.1); Alkaline Phosphatase 116 U/L (38-126); Anion Gap 14 mmol/L (4-12); Aspartate Amino Transferase 22 U/L (14-36); Bilirubin,Total 0.4 mg/dL (0.2-1.3); Blood Urea Nitrogen 63 mg/dL (7-17); Calcium 9.4 mg/dL (8.4-10.2); Carbon Dioxide 22 mmol/L (22-30); Chloride 103 mmol/L (98-107); Estimated Glomerular Filt Rate 8; Glucose 158 mg/dL (65-110); Lipase 53 U/L (23-300); Potassium 5.4 mmol/L (3.4-5.0); Sodium 139 mmol/L (137-145)
--- NOTE | 2024-09-21 16:26 | ECG_ITS ---
Test Date: 2024-09-21 16:56:34 Measurements Intervals [place] Rate: 73 P: 50 TX: 172 QRS: 6 QRSD: 77 T: 105 QT: 395 QTc: 435 Interpretive Statements SINUS RHYTHM BASELINE ARTIFACT- I, II, III, AVR, AVL, AVF, V1-V6 NORMAL ECG Compared to ECG 06/28/2024 16:03:41 NO SIGNIFICANT CHANGE Electronically Signed On 09-21-2024 17:23:10 CDT by Melquiades Marte D.O.
[2024-09-21 16:33] LABS: Add Urine Microscopic? YES; Appearance Urine Clear (Clear); Bacteria Urine None Seen /hpf; Bilirubin Urine Negative (Negative); Blood Urine Negative (Negative); Color Urine Yellow (Yellow); Glucose Urine UA 2+ mg/dL (Negative); Ketones Urine Negative (Negative); Leukocyte Esterase Ur Negative LEU/UL (Negative); Need Manual Microscopic Reviewed; Nitrate Urine Negative (Negative); Non Pathogenic Casts 0-2; Protein Urine 3+ mg/dL (Negative); RBC Urine 0-2 /hpf (0-2); Specific Grav Ur 1.008 (1.001-1.035); Squamous Epithelial Cell Urine None Seen /hpf (Few); Urobilinogen Urine 0.2 mg/dL (<2.0); WBC Urine 0-5 /hpf (0-3); pH Urine 7.5 (5.0-9.0)
--- NOTE | 2024-09-21 16:54 | ED_ITS ---
HPI - General Adult General Chief complaint: Abdominal Pain Stated complaint: abd pain Time Seen by Provider: 09/21/24 14:22 History of Present Illness HPI narrative: 73-year-old female presented to the emergency department for evaluation for a abdominal wound and possible lethargy. At time of evaluation patient denies any pain or complaints. At time of evaluation patient states she does feel strong enough and is actually requesting to be discharged home. Related Data Home Medications ?Medication ?Instructions ?Recorded ?Confirmed ?Last Taken ?Type atorvastatin 40 mg tablet 20 mg PO HS 06/23/21 06/28/24 09/19/21 History acetaminophen 325 mg tablet 650 mg PO Q6H PRN Pain 09/19/21 06/28/24 Unknown History ferrous sulfate 325 mg (65 mg 325 mg PO DAILY 09/19/21 06/28/24 09/19/21 History iron) tablet insulin glargine 100 unit/mL (3 18 unit subcut HS 09/19/21 06/28/24 09/19/21 History mL) subcutaneous pen (Lantus Solostar U-100 Insulin) insulin lispro 100 unit/mL 1 - 4 sliding scale dose subcut 09/19/21 06/28/24 Unknown History subcutaneous pen USEASDIRECTD lidocaine 5 % topical patch 2 patch topical DAILY PRN Back Pain 09/19/21 06/28/24 Unknown History multivitamin 1 tablet PO DAILY 09/19/21 06/28/24 Unknown History albuterol sulfate 90 mcg/actuation 2 inh inhalation Q4H PRN Shortness 11/04/21 06/28/24 Unknown History aerosol inhaler Of Breath Or Wheezing aspirin 81 mg chewable tablet 81 mg PO DAILY 06/28/24 06/28/24 Unknown History benztropine 2 mg tablet 2 mg PO HS 06/28/24 06/28/24 Unknown History calcium phosphate,dibasic 77 1 tablet PO WEEKLY 06/28/24 06/28/24 Unknown History mg-vitamin D3 400 unit tablet hydralazine 25 mg tablet 25 mg PO .q12 06/28/24 06/28/24 Unknown History nifedipine 60 mg tablet,extended 60 mg PO HS 06/28/24 06/28/24 Unknown History release pantoprazole 40 mg tablet,delayed 40 mg PO Q12H 06/28/24 06/28/24 Unknown History release tramadol 25 mg tablet 25 mg PO Q6H PRN pain 06/28/24 06/28/24 Unknown History Allergies Allergy/AdvReac Type Severity Reaction Status Date / Time No Known Allergies Allergy Verified 09/07/24 09:26 Review of Systems 2 Review of Systems: All systems reviewed & are unremarkable except as noted in HPI and below PMFSH Past Medical History Medical History (Updated 09/22/24 @ 00:01 by Rebeca Nagy) Drug-induced Parkinson's disease Heart failure with preserved ejection fraction Insulin dependent diabetes mellitus Chronic kidney disease, stage 4 (severe) Creatinine ranges from 1.9 to 2.20. Venous thrombosis Anemia Hyperkalemia Dementia COVID (06/2021) Schizophrenia Diabetic neuropathy Surgical History Surgical History History of cataract extraction with lens replacement History of section Right great toe amputee Family History Family History Mother Diabetes mellitus Acute myocardial infarction Father Heart attack Cancer Sibling Diabetes mellitus Acute myocardial infarction Social History Social History Social History: The patient lives with her daughter and grand son in [place]. Lifelong nonsmoker. No alcohol or illicit substance abuse. She designates her daughter, Candelaria Gayle, as her surrogate decision maker. Code status: Full code. Smoking status: Never smoker Alcohol intake: former Substance use: never Do You Feel Safe in your Home?: No Lack of Transportation: No Lack of Food: Never True Current Housing: I Have Housing Concerned About Future Housing: No Difficulty Paying Gas/Electric Bills: No Difficulty Paying for Meds: No Currently Unemployed: No Education: Decline to Answer Difficulty w/ Childcare or Family Care: No Living arrangements: with family Spiritual care concerns: No Exam 2 Narrative: APPEARANCE: Well appearing, no pain, no distress, well-nourished. HEAD: normocephalic, atraumatic. EYES: PERRLA/EOMI, conjunctivae clear. NOSE: Normal no drainage EARS:TMS clear with good light reflex. THROAT: Pharynx clear, no exudate. NECK: Supple. No adenopathy, no masses. RESPIRATORY: Airway patent, respirations nonlabored. Clear to auscultation bilaterally, no rales, rhonchi, wheezing. CARDIOVASCULAR: Regular rate and rhythm without murmurs rubs or gallops. ABDOMINAL: Soft, nontender, nondistended, normal bowel sounds MUSCULOSKELETAL: Moves all extremities. Strength/ROM intact, No edema, No calf tenderness. NEURO: Alert. Cranial nerves II through XII intact. Good gait. Good coordination SKIN: Small area of excoriated skin on the abdominal wall, no abscess, no tenderness to palpation Course Vital Signs Vital signs: Vital Signs Temperature 98.7 F 09/21/24 13:46 Pulse Rate 73 09/21/24 13:46 Respiratory Rate 16 09/21/24 13:46 Blood Pressure 145/63 H 09/21/24 13:46 Pulse Oximetry 98 09/21/24 13:46 Oxygen Delivery Room Air 09/21/24 13:46 Temperature 98.7 F 09/21/24 13:46 Pulse Rate 74 09/21/24 17:02 Respiratory Rate 12 09/21/24 17:02 Blood Pressure 198/69 H 09/21/24 17:02 Pulse Oximetry 100 09/21/24 17:02 Oxygen Delivery Room Air 09/21/24 14:27 Medical Decision Making MDM Narrative Medical decision making narrative: Patient is currently afebrile with no leukocytosis hemoglobin 8.9 which is similar to her baseline. Patient is on dialysis and has a creatinine of 5.0, BUN of 63 a potassium of 5.4. Patient had no EKG changes patient was treated with p.o. low,. UA was negative for infection. Patient was negative for influenza RSV and for COVID. Differential Diagnosis Differential Diagnosis: COVID, RSV, influenza, dehydration, UTI, electrolyte abnormality Vital Signs Vital Signs: Vital Signs Temperature 98.7 F 09/21/24 13:46 Pulse Rate 73 09/21/24 13:46 Respiratory Rate 16 09/21/24 13:46 Blood Pressure 145/63 H 09/21/24 13:46 Pulse Oximetry 98 09/21/24 13:46 Oxygen Delivery Room Air 09/21/24 13:46 Temperature 98.7 F 09/21/24 13:46 Pulse Rate 74 09/21/24 17:02 Respiratory Rate 12 09/21/24 17:02 Blood Pressure 198/69 H 09/21/24 17:02 Pulse Oximetry 100 09/21/24 17:02 Oxygen Delivery Room Air 09/21/24 14:27 Lab Data Lab results reviewed: Yes I reviewed the patient's lab results. 09/21/24 14:43 09/21/24 16:01 Labs: Lab Results 09/21/24 09/21/24 09/21/24 Range/Units 14:43 14:49 16:01 WBC 9.7 (4.5-10.0) K/mm3 RBC 2.70 L (4.2-5.4) M/mm3 Hgb 8.9 L (12.0-15.0) g/dL Hct 26.8 L (37.0-47.0) % MCV 99.3 (80-100) fl MCH 33.0 (26-34) pg MCHC 33.2 (32-36) g/dl RDW 14.8 H (11.5-14.5) % Plt Count 234 (150-375) k/mm3 MPV 10.7 H (7.4-10.4) fl Immature Gran % (Auto) 0.5 (0-0.5) % Neut % (Auto) 72.5 (45.5-73.1) % Lymph % (Auto) 19.3 (18.3-44.2) % [place] % (Auto) 6.7 (2.6-8.5) % Eos % (Auto) 0.6 (0-4.4) % Baso % (Auto) 0.4 (0.2-1.2) % Lymph # (Auto) 1.88 (0.9-3.2) K/mm3 [place] # (Auto) 0.7 H (0.1-0.6) K/mm3 Eos # (Auto) 0.1 (0-0.3) K/mm3 Baso # (Auto) 0.0 (0.0-0.1) K/mm3 Abs Immat Gran (auto) 0.05 H (0.00-0.031) K/mm3 Absolute Neuts (auto) 7.1 H (1.3-6.7) K/mm3 Absolute Nucleated RBC 0.000 (0.0-0.012) K/mm3 Nucleated RBC % 0.0 (0.0-0.2) % Sodium 139 (137-145) mmol/L Potassium 5.4 H (3.4-5.0) mmol/L Chloride 103 (98-107) mmol/L Carbon Dioxide 22 (22-30) mmol/L Anion Gap 14 H (4-12) mmol/L BUN 63 H D (7-17) mg/dL Creatinine 5.01 H (0.7-1.0) mg/dL Estim Creat Clear Calc Not Reportable Estimated GFR 8 L (59 - ) Glucose 158 H (65-110) mg/dL Calcium 9.4 (8.4-10.2) mg/dL Total Bilirubin 0.4 (0.2-1.3) mg/dL AST 22 (14-36) U/L ALT 27 (6-35) U/L Alkaline Phosphatase 116 (38-126) U/L Total Protein 8.0 (6.3-8.2) g/dL Albumin 4.2 (3.5-5.1) g/dL Lipase 53 (23-300) U/L Urine Color (Yellow) Urine Appearance (Clear) Urine pH (5.0-9.0) Ur Specific [place] (1.001-1.035) Urine Protein (Negative) mg/dL Urine Glucose (UA) (Negative) mg/dL Urine Ketones (Negative) mg/dL Ur Blood (Man) (Negative) Urine Nitrate (Negative) Urine Bilirubin (Negative) Urine Urobilinogen (<2.0) mg/dL Add Ur Microanalysis Leukocyte Esterase Rfl (Negative) RENEE/UL Urine RBC (0-2) /hpf Urine WBC (0-3) /hpf Ur Squamous Epith Cells (Few) /hpf Urine Bacteria /hpf Urine Casts Influenza A (RT-PCR) Negative (Negative) Influenza B (RT-PCR) Negative (Negative) RSV (RT-PCR) Negative (Negative) SARS-CoV-2 RNA (RT-PCR) Negative (Negative) 09/21/24 Range/Units 16:08 WBC (4.5-10.0) K/mm3 RBC (4.2-5.4) M/mm3 Hgb (12.0-15.0) g/dL Hct (37.0-47.0) % MCV (80-100) fl MCH (26-34) pg MCHC (32-36) g/dl RDW (11.5-14.5) % Plt Count (150-375) k/mm3 MPV (7.4-10.4) fl Immature Gran % (Auto) (0-0.5) % Neut % (Auto) (45.5-73.1) % Lymph % (Auto) (18.3-44.2) % [place] % (Auto) (2.6-8.5) % Eos % (Auto) (0-4.4) % Baso % (Auto) (0.2-1.2) % Lymph # (Auto) (0.9-3.2) K/mm3 [place] # (Auto) (0.1-0.6) K/mm3 Eos # (Auto) (0-0.3) K/mm3 Baso # (Auto) (0.0-0.1) K/mm3 Abs Immat Gran (auto) (0.00-0.031) K/mm3 Absolute Neuts (auto) (1.3-6.7) K/mm3 Absolute Nucleated RBC (0.0-0.012) K/mm3 Nucleated RBC % (0.0-0.2) % Sodium (137-145) mmol/L Potassium (3.4-5.0) mmol/L Chloride (98-107) mmol/L Carbon Dioxide (22-30) mmol/L Anion Gap (4-12) mmol/L BUN (7-17) mg/dL Creatinine (0.7-1.0) mg/dL Estim Creat Clear Calc Estimated GFR (59 - ) Glucose (65-110) mg/dL Calcium (8.4-10.2) mg/dL Total Bilirubin (0.2-1.3) mg/dL AST (14-36) U/L ALT (6-35) U/L Alkaline Phosphatase (38-126) U/L Total Protein (6.3-8.2) g/dL Albumin (3.5-5.1) g/dL Lipase (23-300) U/L Urine Color Yellow (Yellow) Urine Appearance Clear (Clear) Urine pH 7.5 (5.0-9.0) Ur Specific [place] 1.008 (1.001-1.035) Urine Protein 3+ H (Negative) mg/dL Urine Glucose (UA) 2+ H (Negative) mg/dL Urine Ketones Negative (Negative) mg/dL Ur Blood (Man) Negative (Negative) Urine Nitrate Negative (Negative) Urine Bilirubin Negative (Negative) Urine Urobilinogen 0.2 (<2.0) mg/dL Add Ur Microanalysis Reviewed Leukocyte Esterase Rfl Negative (Negative) RENEE/UL Urine RBC 0-2 (0-2) /hpf Urine WBC 0-5 (0-3) /hpf Ur Squamous Epith Cells None seen (Few) /hpf Urine Bacteria None seen /hpf Urine Casts 0-2 Influenza A (RT-PCR) (Negative) Influenza B (RT-PCR) (Negative) RSV (RT-PCR) (Negative) SARS-CoV-2 RNA (RT-PCR) (Negative) Discharge Plan Discharge Clinical Impression: Fatigue, Skin excoriation Patient Disposition: Home, Self-Care Condition: Stable Instructions: Antibiotic Form Additional Instructions: Dialysis as scheduled. Wound care as directed. Have close follow-up with your primary care physician. If you have any worsening symptoms and please call or return to the emergency department. Patient Language: Azerbaijani Prescriptions: No Action atorvastatin 40 mg tablet 20 mg PO HS ferrous sulfate 325 mg (65 mg iron) Tablet 325 mg PO DAILY acetaminophen 325 mg Tablet 650 mg PO Q6H PRN (Reason: Pain) insulin glargine [Lantus Solostar U-100 Insulin] 100 unit/mL (3 mL) insulin pen 18 unit SUBCUT HS multivitamin Tablet 1 tablet PO DAILY lidocaine 5 % Adhesive Patch,Medicated 2 patch TOPICAL DAILY PRN (Reason: Back Pain) Rx Instructions: to bilateral lower back insulin lispro 100 unit/mL Insulin Pen 1 - 4 sliding scale dose SUBCUT USEASDIRECTD Rx Instructions: 150 or less: no insulin 151-200: 1 unit 201-250: 2 units 251-300: 3 units greater than 300: 4 units carvedilol [Coreg] 3.125 mg Tablet 3.125 mg PO Q12HR Qty: 60 2RF albuterol sulfate 90 mcg/actuation HFA aerosol inhaler 2 inh INHALATION Q4H PRN (Reason: Shortness Of Breath Or Wheezing) Eliquis 5 mg Tablet 5 mg PO Q12HR Qty: 60 0RF benzonatate 100 mg Capsule 100 mg PO Q8HR PRN (Reason: Cough) Qty: 30 0RF tramadol 25 mg tablet 25 mg PO Q6H PRN (Reason: pain) pantoprazole 40 mg tablet,delayed release (DR/EC) 40 mg PO Q12H aspirin 81 mg tablet,chewable 81 mg PO DAILY nifedipine 60 mg tablet extended release 60 mg PO HS hydralazine 25 mg tablet 25 mg PO .q12 benztropine 2 mg tablet 2 mg PO HS calcium phos,dibas-vitamin D3 77-400 mg-unit tablet 1 tablet PO WEEKLY Follow-up/Referrals: Nilo,Cherelle Butterfield MD [Primary Care Provider] -
[2024-09-21] MEDS: SODIUM ZIRCONIUM CYCLOSILICATE 10 GM POWD.PACK PO (17:07)
== END 2024-09-21 17:46 | disposition home or self-care (01) ==
PROVIDERS: Emergency Provider Emergency Medicine; PCP Hospitalist
DX: S30.811A Abrasion of abdominal wall, initial encounter (principal); R53.83 Other fatigue; Z20.822 Contact with and (suspected) exposure to COVID-19; E11.22 Type 2 diabetes mellitus with diabetic chronic kidney disease; N18.4 Chronic kidney disease, stage 4 (severe); Z99.2 Dependence on renal dialysis; I50.9 Heart failure, unspecified; F03.90 Unspecified dementia, unspecified severity, without behavioral disturbance, psychotic disturbance, mood disturbance, and anxiety; E11.40 Type 2 diabetes mellitus with diabetic neuropathy, unspecified; G20.A1 Parkinson's disease without dyskinesia, without mention of fluctuations; D64.9 Anemia, unspecified; Z86.16 Personal history of COVID-19; Z98.49 Cataract extraction status, unspecified eye; Z96.1 Presence of intraocular lens; Z89.411 Acquired absence of right great toe; Z79.02 Long term (current) use of antithrombotics/antiplatelets; Z79.4 Long term (current) use of insulin; Z79.01 Long term (current) use of anticoagulants; Z79.82 Long term (current) use of aspirin; Z79.899 Other long term (current) drug therapy; X58.XXXA Exposure to other specified factors, initial encounter
CPT/HCPCS: 36415; 80053; 81001; 83690; 85025; 87637; 93005; 99283; A9270

== ENCOUNTER 2024-11-09 09:13 | Inpatient (IN) | payer MEDICARE, MEDICAID, SELFPAY ==
[2024-11-09] VITALS (29 sets, daily range): BP systolic 164–195; BP diastolic 60–73; PULSE 65–73; RESP 10–22; TEMP 36.8–37.4; O2SAT 98–100; BMI 23.2
--- NOTE | ~2024-11-09 | XR_ITS ---
XR chest 1V portable 11/09/2024 12:10 Indication: Weakness Procedure: AP portable chest Comparison: 06/27/2024 Findings: Portacatheter tip in the right atrium. Heart size normal. Small left pleural effusion. Hear t size normal. Right lung clear. No acute osseous abnormality. Impression: 1: Small left pleural effusion. Reviewed, dictated and finalized at location B. Impression: 1: Small left pleural effusion.
--- NOTE | ~2024-11-09 | CT_ITS ---
CT brain wo con Ordering provider: Pham Dunacn PA-C History: 74 years Female with . fall, hi . Comparison: September 07, 2024 Technique: CT of the head without contrast. Radiation reduction technique utilized.The dose-length pr oduct was 529.67 mGy-cm FINDINGS: BRAIN PARENCHYMA AND CSF SPACES: Old lacunar infarct in the right thalamus. Mild brain atrophy with d eep white matter ischemic changes. No midline shift, mass effect or hemorrhage. The brain parenchyma and CSF spaces are otherwise normal. VISUALIZED PARANASAL SINUSES: Left sphenoid sinus disease. Well aerated. MASTOIDS: Well aerated. BONES: The bones appear intact. SOFT TISSUES: Visualized nasopharynx is normal. Superficial soft tissues are normal. IMPRESSION: No acute intracranial findings. Reviewed, dictated and finalized at location A.
--- NOTE | ~2024-11-09 | CT_ITS ---
CT cervical spine wo con Ordering provider: Pham Duncan PA-C History: . fall, hi . Comparison: None. Technique: CT of the cervical spine was performed without contrast. Sagittal and coronal reformatted images were also obtained and reviewed. Automated exposure control and iterative reconstruction adrianna hnique were employed. The dose-length product was 359.23 mGy-cm. FINDINGS: VERTEBRAE: No subluxation or acute fracture. The occipital condyles are intact. Degenerative changes of the spine. DISC SPACES: Narrowing of the disc spaces C3-C4, C4-C5, C5-C6 and C6-C7. Multilevel uncovertebral lyudmila nt osteoarthritic changes. Bilateral narrowing of the foramina at the level of C3-C4, C4-C5, C5-C6 an d C6-C7. PARASPINOUS SOFT TISSUES: Normal. Slight extension of the right lobe of the thyroid posteriorly which may indicate parathyroid enlargement. Ultrasound evaluation advised. IMPRESSION: No acute osseous abnormality cervical spine. Multilevel degenerative disc disease. Reviewed, dictated and finalized at location A.
--- NOTE | 2024-11-09 09:53 | ED.FALL ---
HPI - Fall General Chief Complaint: Fall <HERO Grajeda Last Filed: 11/09/24 19:34> Stated Complaint: fall <HERO Grajeda Last Filed: 11/09/24 19:34> Source: patient and family <HERO Grajeda Last Filed: 11/09/24 19:34> Mode of arrival: EMS <HERO Grajeda Last Filed: 11/09/24 19:34> Limitations: dementia <HERO Grajeda Last Filed: 11/09/24 19:34> History of Present Illness HPI Narrative: Patient is a 74-year-old female, with past medical history of dementia, ESRD on home every other day HD, Parkinson's, CHF, DM, HTN, who presents to the ED via EMS from home, who presents to the ED with c/o a fall. Per EMS report, patient had a fall in the bathroom today. The daughter heard a thud and found the patient on the ground. She did hit her head. Patient is unsure if she lost consciousness. She denies any pain currently. Denies neck or back pain. Patient is not on any anticoagulation. Daughter at bedside reports that patient has been increasingly weak recently. She was admitted to an outside hospital last week and diagnosed with a urinary tract infection. She has been on cefdinir and is almost completed with this. She is concerned that patient has been decompensating and is at risk for further falls. <Pham Duncan PA-C - Last Filed: 11/09/24 19:34> Related Data Home Medications: Home Medications ?Medication ?Instructions ?Recorded ?Confirmed ?Last Taken ?Type acetaminophen 325 mg tablet 650 mg PO Q6H PRN Pain 09/19/21 11/09/24 Unknown History ferrous sulfate 325 mg (65 mg 325 mg PO DAILY 09/19/21 11/09/24 09/19/21 History iron) tablet insulin glargine 100 unit/mL (3 11 unit subcut HS 09/19/21 11/09/24 11/08/24 23:30 History mL) subcutaneous pen (Lantus 11 units Solostar U-100 Insulin) insulin lispro 100 unit/mL 1 - 4 sliding scale dose subcut 09/19/21 11/09/24 11/08/24 18:30 History subcutaneous pen USEASDIRECTD 4+2 lidocaine 5 % topical patch 2 patch topical DAILY PRN Back Pain 09/19/21 11/09/24 11/07/24 07:00 History 2 patch multivitamin 1 tablet PO DAILY 09/19/21 11/09/24 11/09/24 07:00 History 1 tablet aspirin 81 mg chewable tablet 81 mg PO DAILY 06/28/24 11/09/24 11/09/24 07:00 History 81 mg benztropine 2 mg tablet 2 mg PO HS 06/28/24 11/09/24 11/08/24 23:30 History 2 mg hydralazine 25 mg tablet 25 mg PO TID 06/28/24 11/09/24 11/09/24 07:00 History 25 mg pantoprazole 40 mg tablet,delayed 40 mg PO DAILY 06/28/24 11/09/24 11/09/24 07:00 History release 40 mg atorvastatin 20 mg tablet 20 mg PO QPM 11/09/24 11/09/24 11/08/24 23:30 History 20 mg carvedilol 6.25 mg tablet 6.25 mg PO Q12H 11/09/24 11/09/24 11/09/24 07:00 History 6.25 mg cefdinir 300 mg capsule 300 mg PO DAILY uti 11/09/24 11/09/24 11/09/24 07:07 History 300 mg gabapentin 100 mg capsule 100 mg PO .COMPLEX 11/09/24 11/09/24 11/08/24 20:30 History 100 mg meclizine 25 mg tablet 25 mg PO DAILY 11/09/24 11/09/24 11/09/24 07:00 History 25 mg <Pham Duncan PA-C - Last Filed: 11/09/24 19:34> Allergies/Adverse Reactions: Allergies Allergy/AdvReac Type Severity Reaction Status Date / Time No Known Allergies Allergy Verified 11/09/24 18:43 <Pham Duncan PA-C - Last Filed: 11/09/24 19:34> Review of Systems Review of Systems: All systems reviewed & are unremarkable except as noted in HPI. <Pham Duncan PA-C - Last Filed: 11/09/24 19:34> All systems reviewed & are unremarkable except as noted in HPI and below <Pham Duncan PA-C - Last Filed: 11/09/24 19:34> [facility] Past Medical History Medical History: Medical History Drug-induced Parkinson's disease Heart failure with preserved ejection fraction Insulin dependent diabetes mellitus Chronic kidney disease, stage 4 (severe) Creatinine ranges from 1.9 to 2.20. Venous thrombosis Anemia Hyperkalemia Dementia COVID (06/2021) Schizophrenia Diabetic neuropathy <Pham Duncan PA-C - Last Filed: 11/09/24 19:34> Surgical History Surgical History: Surgical History History of cataract extraction with lens replacement History of section Right great toe amputee <Pham Duncan PA-C - Last Filed: 11/09/24 19:34> Family History Family History: Family History Mother Diabetes mellitus Acute myocardial infarction Father Heart attack Cancer Sibling Diabetes mellitus Acute myocardial infarction <HERO Grajeda Last Filed: 11/09/24 19:34> Social History Social History: Social History Social History: The patient lives with her daughter and grand son in [place]. Lifelong nonsmoker. No alcohol or illicit substance abuse. She designates her daughter, Candelaria Gayle, as her surrogate decision maker. Code status: Full code. Smoking status: Never smoker Alcohol intake: never Substance use: never Substance use type: does not use Do You Feel Safe in your Home?: Yes Lack of Transportation: No Lack of Food: Never True Current Housing: I Have Housing Concerned About Future Housing: No Difficulty Paying Gas/Electric Bills: No Difficulty Paying for Meds: No Currently Unemployed: No Education: Master's Degree or Higher Difficulty w/ Childcare or Family Care: No Living arrangements: with family Spiritual care concerns: Yes <Pham Duncan PA-C - Last Filed: 11/09/24 19:34> Exam Narrative: GENERAL: Elderly, frail, non-toxic, in no acute distress. HEAD: Normocephalic, atraumatic. No contusions. NECK: No midline tenderness RESPIRATORY: Airway patent, respirations nonlabored. Clear to auscultation bilaterally, no rales, rhonchi, wheezing. CARDIOVASCULAR: Regular rate and rhythm without murmurs, rubs, or gallops. MUSCULOSKELETAL: Moves all extremities. No gross deformities. No midline thoracic or lumbar spinal tenderness. SKIN: Warm, dry, normal color. NEURO: Alert, intermittently confused. Speech clear. Cranial nerves II-XII grossly intact. Steady gait. No ataxic movements. No focal deficits. PSYCHIATRIC: Appropriate mood and affect. Normal interaction. <Pham Duncan PA-C - Last Filed: 11/09/24 19:34> Course MANAGER WATER WASTEWATER/PA Physician Supervision This visit was performed by both a physician and an APC. I performed all aspects of the MDM as documented. <Navneet Smiley MD - Last Filed: 11/09/24 18:38> Vital Signs Vital signs: Vital Signs Temperature 98.2 F 11/09/24 09:06 Pulse Rate 69 11/09/24 09:06 Respiratory Rate 12 11/09/24 09:06 Blood Pressure 164/73 H 11/09/24 09:06 Pulse Oximetry 100 11/09/24 09:06 Oxygen Delivery Room Air 11/09/24 09:06 Temperature 98.2 F 11/09/24 09:06 Pulse Rate 71 11/09/24 17:43 Respiratory Rate 18 11/09/24 17:43 Blood Pressure 178/63 H 11/09/24 17:43 Pulse Oximetry 100 11/09/24 17:43 Oxygen Delivery Room Air 11/09/24 09:06 <Pham Duncan PA-C - Last Filed: 11/09/24 19:34> Vital Signs Temperature 98.2 F 11/09/24 09:06 Pulse Rate 69 11/09/24 09:06 Respiratory Rate 12 11/09/24 09:06 Blood Pressure 164/73 H 11/09/24 09:06 Pulse Oximetry 100 11/09/24 09:06 Oxygen Delivery Room Air 11/09/24 09:06 Temperature 98.2 F 11/09/24 09:06 Pulse Rate 71 11/09/24 17:43 Respiratory Rate 18 11/09/24 17:43 Blood Pressure 178/63 H 11/09/24 17:43 Pulse Oximetry 100 11/09/24 17:43 Oxygen Delivery Room Air 11/09/24 09:06 <Navneet Smiley MD - Last Filed: 11/09/24 18:38> MDM - Fall MDM Narrative Medical decision making narrative: Patient presented to ED status post fall today. Head injury. Unsure of LOC. No obvious signs of trauma on exam. Vital signs stable. Patient neurologically intact. No acute distress. No anticoagulation. CT brain and cervical spine was obtained and without acute traumatic findings. Daughter at bedside reports that patient has been increasingly weak over the past 2 weeks. She has had difficulty caring for her at home. She states often her knees will buckle and she cannot prevent herself from falling. Patient at risk for further falls. Laboratory studies were obtained and fairly unremarkable. Anemia consistent with baseline. End-stage renal disease, consistent with baseline. UA here does not show any evidence of ongoing infection. She was diagnosed with UTI last week, is almost finished with a course of cefdinir. Chest x-ray with small pleural effusion, otherwise unremarkable. Will discuss with care coordination for possible acute rehab placement. Patient unable to receive placement today due to hemodialysis needs. Care coordination will continue to work on placement in a dialysis capable facility. Discussed case with Celsete Barr MANAGER WATER WASTEWATER hospitalist, accepted patient for admission. PT/OT eval ordered. Patient and family in agreement with plan and admission/placement. <Pham Duncan PA-C - Last Filed: 11/09/24 19:34> Medical Records Attestation: I reviewed the patient's medical records. <Pham Duncan PA-C - Last Filed: 11/09/24 19:34> Lab Data Attestation: I reviewed the patient's lab results. <Pham Duncan PA-C - Last Filed: 11/09/24 19:34> Result diagrams: 11/09/24 11:12 11/09/24 12:54 <Pham Duncan PA-C - Last Filed: 11/09/24 19:34> Labs: Lab Results 11/09/24 11/09/24 11/09/24 Range/Units 11:12 12:54 14:02 WBC 9.9 (4.5-10.0) K/mm3 RBC 2.71 L (4.2-5.4) M/mm3 Hgb 9.0 L (12.0-15.0) g/dL Hct 27.7 L (37.0-47.0) % MCV 102.2 H (80-100) fl MCH 33.2 (26-34) pg MCHC 32.5 (32-36) g/dl RDW 14.2 (11.5-14.5) % Plt Count 256 (150-375) k/mm3 MPV 10.1 (7.4-10.4) fl Immature Gran % (Auto) 0.5 (0-0.5) % Neut % (Auto) 70.8 (45.5-73.1) % Lymph % (Auto) 19.7 (18.3-44.2) % [place] % (Auto) 7.4 (2.6-8.5) % Eos % (Auto) 1.3 (0-4.4) % Baso % (Auto) 0.3 (0.2-1.2) % Lymph # (Auto) 1.96 (0.9-3.2) K/mm3 [place] # (Auto) 0.7 H (0.1-0.6) K/mm3 Eos # (Auto) 0.1 (0-0.3) K/mm3 Baso # (Auto) 0.0 (0.0-0.1) K/mm3 Abs Immat Gran (auto) 0.05 H (0.00-0.031) K/mm3 Absolute Neuts (auto) 7.0 H (1.3-6.7) K/mm3 Absolute Nucleated RBC 0.090 H (0.0-0.012) K/mm3 Nucleated RBC % 0.9 H (0.0-0.2) % PT 13.0 (11.1-14.7) Seconds INR 0.9 APTT 28.3 (22.3-36.8) Seconds Sodium 134 L (137-145) mmol/L Potassium 4.3 (3.4-5.0) mmol/L Chloride 96 L (98-107) mmol/L Carbon Dioxide 28 (22-30) mmol/L Anion Gap 10 (4-12) mmol/L BUN 33 H D (7-17) mg/dL Creatinine 4.15 H (0.7-1.0) mg/dL Estim Creat Clear Calc 8 ml/min Estimated GFR 10 L (59 - ) Glucose 126 H (65-110) mg/dL Calcium 8.8 (8.4-10.2) mg/dL Total Bilirubin 0.3 (0.2-1.3) mg/dL AST 30 (14-36) U/L ALT 24 (6-35) U/L Alkaline Phosphatase 130 H (38-126) U/L Total Protein 7.0 (6.3-8.2) g/dL Albumin 4.1 (3.5-5.1) g/dL Urine Color Yellow (Yellow) Urine Appearance Clear (Clear) Urine pH 8.0 (5.0-9.0) Ur Specific [place] 1.004 (1.001-1.035) Urine Protein 2+ H (Negative) mg/dL Urine Glucose (UA) 1+ H (Negative) mg/dL Urine Ketones Negative (Negative) mg/dL Ur Blood (Man) Negative (Negative) Urine Nitrate Negative (Negative) Urine Bilirubin Negative (Negative) Urine Urobilinogen 0.2 (<2.0) mg/dL Leukocyte Esterase Rfl Negative (Negative) RENEE/UL Urine RBC 0-2 (0-2) /hpf Urine WBC 0-5 (0-3) /hpf Ur Squamous Epith Cells None seen (Few) /hpf Urine Bacteria None seen /hpf Urine Casts 0-2 Influenza A (RT-PCR) (Negative) Influenza B (RT-PCR) (Negative) RSV (RT-PCR) (Negative) SARS-CoV-2 RNA (RT-PCR) (Negative) 11/09/24 Range/Units 15:42 WBC (4.5-10.0) K/mm3 RBC (4.2-5.4) M/mm3 Hgb (12.0-15.0) g/dL Hct (37.0-47.0) % MCV (80-100) fl MCH (26-34) pg MCHC (32-36) g/dl RDW (11.5-14.5) % Plt Count (150-375) k/mm3 MPV (7.4-10.4) fl Immature Gran % (Auto) (0-0.5) % Neut % (Auto) (45.5-73.1) % Lymph % (Auto) (18.3-44.2) % [place] % (Auto) (2.6-8.5) % Eos % (Auto) (0-4.4) % Baso % (Auto) (0.2-1.2) % Lymph # (Auto) (0.9-3.2) K/mm3 [place] # (Auto) (0.1-0.6) K/mm3 Eos # (Auto) (0-0.3) K/mm3 Baso # (Auto) (0.0-0.1) K/mm3 Abs Immat Gran (auto) (0.00-0.031) K/mm3 Absolute Neuts (auto) (1.3-6.7) K/mm3 Absolute Nucleated RBC (0.0-0.012) K/mm3 Nucleated RBC % (0.0-0.2) % PT (11.1-14.7) Seconds INR APTT (22.3-36.8) Seconds Sodium (137-145) mmol/L Potassium (3.4-5.0) mmol/L Chloride (98-107) mmol/L Carbon Dioxide (22-30) mmol/L Anion Gap (4-12) mmol/L BUN (7-17) mg/dL Creatinine (0.7-1.0) mg/dL Estim Creat Clear Calc ml/min Estimated GFR (59 - ) Glucose (65-110) mg/dL Calcium (8.4-10.2) mg/dL Total Bilirubin (0.2-1.3) mg/dL AST (14-36) U/L ALT (6-35) U/L Alkaline Phosphatase (38-126) U/L Total Protein (6.3-8.2) g/dL Albumin (3.5-5.1) g/dL Urine Color (Yellow) Urine Appearance (Clear) Urine pH (5.0-9.0) Ur Specific [place] (1.001-1.035) Urine Protein (Negative) mg/dL Urine Glucose (UA) (Negative) mg/dL Urine Ketones (Negative) mg/dL Ur Blood (Man) (Negative) Urine Nitrate (Negative) Urine Bilirubin (Negative) Urine Urobilinogen (<2.0) mg/dL Leukocyte Esterase Rfl (Negative) RENEE/UL Urine RBC (0-2) /hpf Urine WBC (0-3) /hpf Ur Squamous Epith Cells (Few) /hpf Urine Bacteria /hpf Urine Casts Influenza A (RT-PCR) Negative (Negative) Influenza B (RT-PCR) Negative (Negative) RSV (RT-PCR) Negative (Negative) SARS-CoV-2 RNA (RT-PCR) Negative (Negative) <Pham Duncan PA-C - Last Filed: 11/09/24 19:34> Lab Results 11/09/24 11/09/24 11/09/24 Range/Units 11:12 12:54 14:02 WBC 9.9 (4.5-10.0) K/mm3 RBC 2.71 L (4.2-5.4) M/mm3 Hgb 9.0 L (12.0-15.0) g/dL Hct 27.7 L (37.0-47.0) % MCV 102.2 H (80-100) fl MCH 33.2 (26-34) pg MCHC 32.5 (32-36) g/dl RDW 14.2 (11.5-14.5) % Plt Count 256 (150-375) k/mm3 MPV 10.1 (7.4-10.4) fl Immature Gran % (Auto) 0.5 (0-0.5) % Neut % (Auto) 70.8 (45.5-73.1) % Lymph % (Auto) 19.7 (18.3-44.2) % [place] % (Auto) 7.4 (2.6-8.5) % Eos % (Auto) 1.3 (0-4.4) % Baso % (Auto) 0.3 (0.2-1.2) % Lymph # (Auto) 1.96 (0.9-3.2) K/mm3 [place] # (Auto) 0.7 H (0.1-0.6) K/mm3 Eos # (Auto) 0.1 (0-0.3) K/mm3 Baso # (Auto) 0.0 (0.0-0.1) K/mm3 Abs Immat Gran (auto) 0.05 H (0.00-0.031) K/mm3 Absolute Neuts (auto) 7.0 H (1.3-6.7) K/mm3 Absolute Nucleated RBC 0.090 H (0.0-0.012) K/mm3 Nucleated RBC % 0.9 H (0.0-0.2) % PT 13.0 (11.1-14.7) Seconds INR 0.9 APTT 28.3 (22.3-36.8) Seconds Sodium 134 L (137-145) mmol/L Potassium 4.3 (3.4-5.0) mmol/L Chloride 96 L (98-107) mmol/L Carbon Dioxide 28 (22-30) mmol/L Anion Gap 10 (4-12) mmol/L BUN 33 H D (7-17) mg/dL Creatinine 4.15 H (0.7-1.0) mg/dL Estim Creat Clear Calc 8 ml/min Estimated GFR 10 L (59 - ) Glucose 126 H (65-110) mg/dL Calcium 8.8 (8.4-10.2) mg/dL Total Bilirubin 0.3 (0.2-1.3) mg/dL AST 30 (14-36) U/L ALT 24 (6-35) U/L Alkaline Phosphatase 130 H (38-126) U/L Total Protein 7.0 (6.3-8.2) g/dL Albumin 4.1 (3.5-5.1) g/dL Urine Color Yellow (Yellow) Urine Appearance Clear (Clear) Urine pH 8.0 (5.0-9.0) Ur Specific [place] 1.004 (1.001-1.035) Urine Protein 2+ H (Negative) mg/dL Urine Glucose (UA) 1+ H (Negative) mg/dL Urine Ketones Negative (Negative) mg/dL Ur Blood (Man) Negative (Negative) Urine Nitrate Negative (Negative) Urine Bilirubin Negative (Negative) Urine Urobilinogen 0.2 (<2.0) mg/dL Leukocyte Esterase Rfl Negative (Negative) RENEE/UL Urine RBC 0-2 (0-2) /hpf Urine WBC 0-5 (0-3) /hpf Ur Squamous Epith Cells None seen (Few) /hpf Urine Bacteria None seen /hpf Urine Casts 0-2 Influenza A (RT-PCR) (Negative) Influenza B (RT-PCR) (Negative) RSV (RT-PCR) (Negative) SARS-CoV-2 RNA (RT-PCR) (Negative) 11/09/24 Range/Units 15:42 WBC (4.5-10.0) K/mm3 RBC (4.2-5.4) M/mm3 Hgb (12.0-15.0) g/dL Hct (37.0-47.0) % MCV (80-100) fl MCH (26-34) pg MCHC (32-36) g/dl RDW (11.5-14.5) % Plt Count (150-375) k/mm3 MPV (7.4-10.4) fl Immature Gran % (Auto) (0-0.5) % Neut % (Auto) (45.5-73.1) % Lymph % (Auto) (18.3-44.2) % [place] % (Auto) (2.6-8.5) % Eos % (Auto) (0-4.4) % Baso % (Auto) (0.2-1.2) % Lymph # (Auto) (0.9-3.2) K/mm3 [place] # (Auto) (0.1-0.6) K/mm3 Eos # (Auto) (0-0.3) K/mm3 Baso # (Auto) (0.0-0.1) K/mm3 Abs Immat Gran (auto) (0.00-0.031) K/mm3 Absolute Neuts (auto) (1.3-6.7) K/mm3 Absolute Nucleated RBC (0.0-0.012) K/mm3 Nucleated RBC % (0.0-0.2) % PT (11.1-14.7) Seconds INR APTT (22.3-36.8) Seconds Sodium (137-145) mmol/L Potassium (3.4-5.0) mmol/L Chloride (98-107) mmol/L Carbon Dioxide (22-30) mmol/L Anion Gap (4-12) mmol/L BUN (7-17) mg/dL Creatinine (0.7-1.0) mg/dL Estim Creat Clear Calc ml/min Estimated GFR (59 - ) Glucose (65-110) mg/dL Calcium (8.4-10.2) mg/dL Total Bilirubin (0.2-1.3) mg/dL AST (14-36) U/L ALT (6-35) U/L Alkaline Phosphatase (38-126) U/L Total Protein (6.3-8.2) g/dL Albumin (3.5-5.1) g/dL Urine Color (Yellow) Urine Appearance (Clear) Urine pH (5.0-9.0) Ur Specific [place] (1.001-1.035) Urine Protein (Negative) mg/dL Urine Glucose (UA) (Negative) mg/dL Urine Ketones (Negative) mg/dL Ur Blood (Man) (Negative) Urine Nitrate (Negative) Urine Bilirubin (Negative) Urine Urobilinogen (<2.0) mg/dL Leukocyte Esterase Rfl (Negative) RENEE/UL Urine RBC (0-2) /hpf Urine WBC (0-3) /hpf Ur Squamous Epith Cells (Few) /hpf Urine Bacteria /hpf Urine Casts Influenza A (RT-PCR) Negative (Negative) Influenza B (RT-PCR) Negative (Negative) RSV (RT-PCR) Negative (Negative) SARS-CoV-2 RNA (RT-PCR) Negative (Negative) <Navneet Smiley MD - Last Filed: 11/09/24 18:38> Imaging Data Attestation: I personally reviewed and interpreted this imaging study as follows: <Pham Duncan PA-C - Last Filed: 11/09/24 19:34> Radiologist's impression: ITS Impressions Head CT 11/09/24 10:11 IMPRESSION: No acute intracranial findings. Cervical Spine CT 11/09/24 10:22 IMPRESSION: No acute osseous abnormality cervical spine. Multilevel degenerative disc disease. Chest X-Ray 11/09/24 12:12 Impression: 1: Small left pleural effusion. <Pham Duncan PA-C - Last Filed: 11/09/24 19:34> ECG Data EKG #1: Attestation: I personally reviewed and interpreted this ECG as follows: <HERO Grajeda Last Filed: 11/09/24 19:34> ECG completion date: 11/09/24 <HERO Grajeda Last Filed: 11/09/24 19:34> ECG completion time: 11:54 <HERO Grajeda Last Filed: 11/09/24 19:34> EKG Interpretation: normal rate (67), sinus rhythm and non-specific ST changes <HERO Grajeda Last Filed: 11/09/24 19:34> Discharge Plan Discharge Clinical Impression: Weakness, Multiple falls, End stage renal disease on dialysis Closed head injury Qualifiers: Encounter type: initial encounter Qualified Code(s): S09.90XA - Unspecified injury of head, initial encounter <HERO Grajeda Last Filed: 11/09/24 19:34> Patient Disposition: Still a Patient <HERO Grajeda Last Filed: 11/09/24 19:34> Condition: Stable <HERO Grajeda Last Filed: 11/09/24 19:34>
--- OUTSIDE RECORDS SUMMARY | 2024-11-09 10:02 | XMS_ITS | Continuity of Care Document ---
Author Organization [facility] Address [address] [facility] [facility] [address] [place] [address] Phone Care Team Providers Care Tube Molder Fiberglass Name Role Phone Luis OD, Alvarado Unavailable Unavailable Advance Directives Directive Yes / No Effective Date File Name No Information Encounters Encounter Description Practice Location Reason(s) For Visit Diagnoses Date Provider Providers Copied on Encounter [facility], [address], [place], [place], [id number], [place] tel:[phone] SEC [facility] No Information October-2 0-200 5 Luis OD Alvarado. [address] [facility] , [address], [place], [address], [place]. tel:[phone] Family History Family Member Type Diagnosis Age At Onset No Information Payers Payer name Insurance type Covered alliance party ID Authoriza tion(s) Medicaid [facility] [id number] Social History Type Description Quantity Date Captured [...]
--- OUTSIDE RECORDS SUMMARY | 2024-11-09 10:02 | XMS_ITS | Encounter Summary ---
Author Organization [facility] Healthcare Address [address] [place] [address] Care Team Providers Care Community Services Manager Name Role Phone Cherelle Corcoran MD Primary Care Pro vider Mark Queen MD Unavailable [phone] Rudolph Welch MD Unavailable [phone] Markie Ryan MD Unavailable Jimbo Strauss MD Unavailable [phone] Jaya Grier MD Unavailable Edgardo Kauffman MD Unavailable Macrina Mike RN Unavailable Encounter Details Date Type Department Care Team (Late st Contact Info) Description 10/25/2024 Results Follow-Up [facility] Primary Care at [address] [place] [address] Cherelle Corcoran MD [facility] [address] XR Chest PA Lateral 2 Views Social History Tobacco Use Types Packs/Day Years [...] the past 12 months has th e [email or web address], gas, oil, or water company threatened to [...] points, staff should administer the PHQ-9) 0 10/23/2024 Hunger Vital Sign Answer Date Recorded Within [...] a senior care (including now)? 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 Gender Identity Female 02/08/2020 6:39 PM CDT Sexual Orientation Not on file documented as of this encounter Plan of Treatment Scheduled Procedures Name Priority Associated Diagnoses Date/Ti me COLONOSCOPY Iron deficiency anemia due to chronic blood loss documented as of this encounter Visit Diagnoses Not on filedocumented in this encounter Care Teams Community Services Manager Relationship Specialty Start Date End Date Cherelle Corcoran MD PCP - General Family Medicine 08/30/19 Mark Queen MD Consulting Physician Infectious Diseases 01/10/20 Rudolph Welch MD [address] [facility] [address] [place] [address] Consulting Physician Infectious Diseases 12/05/22 Markie Ryan MD [address] [facility] [address] [place] [address] Consulting Physician Nephrology 12/05/22 [place] [address] [facility] [address] [place] [address] Consulting Physician Nephrology 10/22/23 Jaya Grier MD [address] [facility] [address] [place] [address] Consulting Physician Gastroenterology 02/01/24 Edgardo Kauffman MD [address] [facility] [address] [facility] [address] [place] [address] Surgeon Vascular Surgery 07/15/24 Macrina Mike RN [address] [place] [address] [address] [place] [address] Sales Marketing 11/07/24 documented as of this encounter
--- OUTSIDE RECORDS SUMMARY | 2024-11-09 10:02 | XMS_ITS | Encounter Summary ---
Author Organization [facility] Address [address] [place] [address] Phone Care Team Providers Care Top Collar Maker Name Role Phone Cherelle Corcoran MD Primary Care Pro vider QueenMark Perez MD Unavailable [phone] Brandie Callejas MA Unavailable Unav ailable Xenia Padilla LPN Unavailable [phone] Samples, Melania Joel RN Unavailable [phone] Anam Costa LCSW Unavailable Unavailabl e Samples, Melania Joel RN Unavailable [phone] Rudolph Welch MD Unavailable Markie Ryan MD Unavailable [phone] Nadege Ramírez RN Unavailable Dulce Vega RN Unavailable Jimbo Strauss MD Unavailable [phone] Jaya Grier MD Unavailable Edgardo Kauffman MD Unavailable [phone] Macrina Mike RN Unavailable Encounter Details Date Type Department Care Team (Late st Contact Info) Description 12/30/2021 Telephone [facility] Endocrinology Metabolism and Lipid [address] [facility] [address] [place] [address] [place] [id number] Rachael Smith CMA Social History Tobacco Use [...] you attend chur ch or mormonism services? 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 Gender Identity Female 02/08/2020 6:39 PM [...] COVID: Suspected 05/08/2022 05/08/2022 05/08/2022 4:26 PM RUBBER STAMP DIE INSPECTOR COVID: Suspected 06/19/2022 06/19/2022 06/19/2022 12:37 PM RUBBER STAMP DIE INSPECTOR COVID: Suspected 08/01/2022 08/01/2022 08/01/2022 2:28 PM RUBBER STAMP DIE INSPECTOR COVID: Suspected 10/02/2022 10/02/2022 10/02/2022 8:14 PM CDT MRSA Comment:Toe 11/08/22, 12/12/22 11/08/2022 12/12/2022 06/10/2023 3:05 AM RUBBER STAMP DIE INSPECTOR COVID: Suspected 12/08/2022 12/08/2022 12/08/2022 8:17 PM CDT COVID: Suspected 07/27/2023 07/27/2023 07/28/2023 12:57 AM RUBBER STAMP DIE INSPECTOR COVID: Suspected 10/29/2023 10/30/2023 10/30/2023 10:59 AM CDT 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 12/19/2023 12/19/2023 3:58 PM CDT 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 12/29/2023 06/26/2024 3:05 AM RUBBER STAMP DIE INSPECTOR COVID: Suspected 04/19/2024 04/19/2024 04/20/2024 12:44 AM CDT COVID: Suspected 07/12/2024 07/12/2024 07/12/2024 12:39 PM RUBBER STAMP DIE INSPECTOR COVID: Suspected 07/31/2024 07/31/2024 07/31/2024 2:06 PM RUBBER STAMP DIE INSPECTOR documented as of this encounter Care Teams Top Collar Maker Relationship Specialty Start Date End Date Cherelle Corcoran MD PCP - General Family Medicine 08/30/19 Mark Queen MD Consulting Physician Infectious Diseases 01/10/20 Brandie Callejas MA Patient Welder Operator 06/20/22 06/22/22 Xenia Padilla LPN [address] [place] [address] [address] [place] [address] Food And Beverage Director 06/24/22 06/24/22 Samples, Melania Joel RN [address] [place] [address] [address] [place] [address] Food And Beverage Director 07/22/22 08/21/22 Anam Costa LCSW [address] [place] [address] [address] [place] [address] Hand Stonecutter 08/08/22 02/18/23 Samples, Melania Joel RN [address] [place] [address] [address] [place] [address] Food And Beverage Director 08/22/22 12/07/22 Rudolph Welch MD [address] [facility] [address] [place] [address] Consulting Physician Infectious Diseases 12/05/22 Markie Ryan MD [address] [facility] [address] [place] [address] Consulting Physician Nephrology 12/05/22 Nadege Ramírez RN [address] [place] [address] [address] [place] [address] Food And Beverage Director 01/20/23 02/23/23 Dulce Vega RN [address] [place] [address] [address] [place] [address] Food And Beverage Director 10/07/23 05/03/24 [place] [address] [facility] [address] [place] [address] Consulting Physician Nephrology 10/22/23 Jaya Grier MD [address] [facility] [address] [place] [address] Consulting Physician Gastroenterology 02/01/24 Edgardo Kauffman MD [address] [facility] [address] [facility] [address] [place] [address] Surgeon Vascular Surgery 07/15/24 Macrina Mike, ALIREZA [address] [place] [address] [address] [place] [address] Food And Beverage Director 11/07/24 documented as of this encounter
--- OUTSIDE RECORDS SUMMARY | 2024-11-09 10:02 | XMS_ITS ---
Author Organization [facility] Care Team Providers Care Computer Systems Engineer Name Role Phone Mark Canada Unavailable Unavailable Sarahy Tanner Unavailable Unavail able Allergies and adverse reactions No Known Allergies Care Team Name Role Address Phone Organization Dates Mark Canada PCP [address] [place], [place], [facility], [facility] (Office): : [facility] 10/22/2023 - 10/23/2023 Sarahy Tanner [address] , [place], [place], [facility], [facility] (Office): : [facility] 10/22/2023 - 10/23/2023 Goals Section Description Status Target Date Resident will comply with therapeutic diet Activ e 01/23/2024 Resident will consume greate r than 50% of meals through next review date Active 01/23/2024 Resident will maintain weight through next revie w date Active 01/23/2024 Resident will not have a significant change in w t Active 01/23/2024 Resident will not have nutri tionally-significant adverse medication side effects Active 01/23/2024 The resident will engage in the I:I program weekly through next review Active 01/23/2024 Will remain free of further skin complications throughout next review. Active 01/23/2024 Immunizations Immunization Status Vaccine Details Vaccine Code CodeSystem Date Notes TB 1 Step Mantoux (PPD) completed tuberculin skin test; unspecified formulation lotNumber: [id number] expiry: 08/20/2024 Mfg: Aplisol 0.1 ml Given 0.1 ml Left Forearm subcutaneously 98 CVX created date: 10/23/2023 consent date: 10/23/2023 administere d date: 10/23/2023 Mental Status Section Date Assessment Total Score Description 10/23/2023 BIMS 11 moderate cognit amanda impairment CAM 0 No delirium ind icated PHQ-9 10 moderate depres jannette 10/23/2023 CAM 0 No delirium ind icated Problems Problem # Description Date of onset Resolved Date Code CodeSystem Concern Status 1 ACQUIRED ABSENCE OF OTHER RIGHT TOE(S) 10/22/[address] active 2 ACUTE AND CHRONIC RESPIRATORY FAILURE WITH HYPOXIA 10/22/[address] active 3 ALZHEIMER'S DISEASE, UNSPECIFIED 10/22/[address] active 4 BANDEMIA 10/22/[address] active 5 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 10/22/[address] active 6 COGNITIVE COMMUNICATION DEFICIT 10/22/[address] active 7 DEPENDENCE ON RENAL DIALYSIS 10/22/[address] active 8 DISORIENTATION, UNSPECIFIED 10/22/[address] active 9 END STAGE RENAL DISEASE 10/22/[address] active 10 ESSENTIAL (PRIMARY) HYPERTENSION 10/22/[address] active 11 FRONTAL LOBE AND EXECUTIVE FUNCTION DEFICIT 10/22/[address] active 12 GASTRO-ESOPHAGEAL REFLUX DISEASE WITHOUT ESOPHAGITIS 10/22/[address] active 13 IRON DEFICIENCY ANEMIA SECONDARY TO BLOOD LOSS (CHRONIC) 10/22/[address] active 14 OTHER ABNORMALITIES OF GAIT AND MOBILITY 10/22/[address] active 15 PARKINSON'S DISEASE WITH DYSKINESIA, WITH FLUCTUATIONS 10/22/[address] active 16 SCHIZOAFFECTIVE DISORDER, BIPOLAR TYPE 10/22/[address] active 17 TYPE 2 DIABETES MELLITUS WITH DIABETIC AUTONOMIC (POLY)NEUROPATHY 10/22/[address] active 18 UNSPECIFIED COMBINED SYSTOLIC (CONGESTIVE) AND DIASTOLIC (CONGESTIVE) HEART FAILURE 10/22/[address] active 19 WEAKNESS 10/22/[address] active Reason for Referral No Reasons for Referral Entered Social History Social History Observation Description Start Date End Date Code Code System Current Smoking Status Tobacco smoking consumption unknown 487105827 SNOMED CT Sex Assigned At Female 1950 40799-1 [facility] Gender Identity Female [id number] Vital Signs Code Code System Vitals Name Values and Units Timing Information 20636-9 [facility] Pain Level Value=0.0 10/24/2023 48191-4 [facility] O2 % BldC Oximetry Value=98.0 Units= % 10/24/2023 15757-0 [facility] Weight Wayrg=074.3 Units=Lbs 08/2023 8302-2 [facility] Height Value=62.0 Units=Inches 10/23/2023 9279-1 [facility] Respiratory Rate Value=14.0 Units=/m in 10/23/2023 8462-4 [facility] Blood Pressure-Diastolic Value=62 Un its=mmHg 10/23/2023 8480-6 [facility] Blood Pressure-Systolic Odmaj=238 Un its=mmHg 10/23/2023 8310-5 [facility] Body Temperature Value=97.5 Units= F 10/23/2023 8867-4 [facility] Heart rate Value=66.0 Units=/min 08/2023
--- OUTSIDE RECORDS SUMMARY | 2024-11-09 10:02 | XMS_ITS ---
Author Organization [facility] Address [address] [place] [address] Care Team Providers Care Retail Loan Originator Name Role Phone Cherelle Corcoran MD Primary Care Pro vider Mark Queen MD Unavailable [phone] Rudolph Welch MD Unavailable Markie Ryan MD Unavailable Jimbo Strauss MD Unavailable [phone] Jaya Grier MD Unavailable Edgardo Kauffman MD Unavailable [phone] Macrina Mike RN Unavailable Dialysis Plan of Treatment Dialysis Prescription As-Of Date Prescribed Dry Weight Primary Se tting 11/04/2024 Acute Dialysis S CA Instructions Modality Prescribed Duration (hours) Frequency Blood Flow Rate Conventional Hemodialysis 3:00 40 0 mL/min Dialysis Access Type Location Dialysate Sodium Level Potassium Level Calcium Level Bicarbonate Level 137 mEq/L 38 mEq/L from Last 30 Days Dialysis Access Sites Type Status Location Placement Date Removal Da te Hemodialysis Cath Double 10/15/23 Tunneled catheter Right Internal Jugular Active Right Neck (side) - Anterior 10/15/2023 Historical Dialysis Procedures Date BP Pre BP Post Weight Pre Weight Post Treatment Duration Start Time End Time Achieved BFR Vascular Access from Last 30 Days Procedures Procedure Name Priority Date/Time Associated Diagnosis Comments POCT GLUCOSE DEVICE Routine 11/05/2024 11:49 AM CDT EGFR Routine 11/05/2024 6:52 AM CDT DIFFERENTIAL AUTO Routine 11/05/2024 6:52 AM CDT CBC WITH AUTO DIFFERENTIAL Routine 11/05 6:52 AM CDT BASIC METABOLIC PANEL Routine 11/05/2024 6:52 AM CDT POCT GLUCOSE DEVICE Routine 11/04/2024 9:22 PM CDT POCT GLUCOSE DEVICE Routine 11/04/2024 4:33 PM CDT POCT GLUCOSE DEVICE Routine 11/04/2024 11:12 AM CDT POCT GLUCOSE DEVICE Routine 11/04/2024 9:37 AM CDT HEMODIALYSIS Routine 11/04/2024 6:42 AM CDT POCT GLUCOSE DEVICE Routine 11/04/2024 6:09 AM CDT EGFR Routine 11/04/2024 4:16 AM CDT DIFFERENTIAL AUTO Routine 11/04/2024 4:16 AM CDT CBC WITH AUTO DIFFERENTIAL Routine 11/04 4:16 AM CDT BASIC METABOLIC PANEL Routine 11/04/2024 4:16 AM CDT POCT GLUCOSE DEVICE Routine 11/03/2024 8:27 PM CDT POCT GLUCOSE DEVICE Routine 11/03/2024 3:45 PM CDT MRI BRAIN WO CONTRAST IP Routine 11/03/2024 1:17 PM CDT POCT GLUCOSE DEVICE Routine 11/03/2024 11:14 AM CDT POCT GLUCOSE DEVICE Routine 11/03/2024 7:17 AM CDT EGFR Routine 11/03/2024 2:33 AM CDT DIFFERENTIAL AUTO Routine 11/03/2024 2:33 AM CDT CBC WITH AUTO DIFFERENTIAL Routine 11/03 2:33 AM CDT BASIC METABOLIC PANEL Routine 11/03/2024 2:33 AM CDT POCT GLUCOSE DEVICE Routine 11/02/2024 9:40 PM CDT AMMONIA Routine 11/02/2024 6:[address] HEAD WO CONTRAST IP Routine 11/02/2024 6:31 PM CDT POC BLOOD GAS AND CHEMISTRIE S, ARTERIAL Routine 11/02/2024 6:17 PM CDT POCT GLUCOSE DEVICE Routine 11/02/2024 5:13 PM CDT POCT GLUCOSE DEVICE Routine 11/02/2024 12:32 PM CDT HEMODIALYSIS Routine 11/02/2024 9:02 AM CDT POCT GLUCOSE DEVICE Routine 11/02/2024 7:50 AM CDT HEPATITIS B SURFACE ANTIBODY (IMMUNE STATUS) STAT 11/02/2024 7:14 AM CDT HEPATITIS B SURFACE ANTIGEN STAT 10/20 7:14 AM CDT EGFR Routine 11/02/2024 3:48 AM CDT DIFFERENTIAL AUTO Routine 11/02/2024 3:48 AM CDT FOLATE Routine 11/02/2024 3:48 AM CDT CBC WITH AUTO DIFFERENTIAL Routine 11/02 3:48 AM CDT BASIC METABOLIC PANEL Routine 11/02/2024 3:48 AM CDT HEMOGLOBIN A1C Routine 11/01/2024 10:05 PM CDT VITAMIN B12 Routine 11/01/2024 10:05 PM CDT LIPID PANEL Routine 11/01/2024 10:05 PM CDT CRP (ACUTE PHASE) Routine 11/01/2024 10:05 PM CDT ERYTHROCYTE SEDIMENTATION RATE Routine 0 11/01/2024 10:05 PM CDT LACTATE Routine 11/01/2024 10:05 PM CDT PHOSPHORUS Routine 11/01/2024 10:05 PM CDT MAGNESIUM Routine 11/01/2024 10:05 PM CDT POCT GLUCOSE DEVICE Routine 11/01/2024 9:59 PM CDT URINALYSIS, MICROSCOPIC ONLY STAT 7:23 PM CDT URINE CULTURE STAT 11/01/2024 7:23 PM CDT URINALYSIS AND REFLEX TO MICROSCOPIC AND CULTURE STAT 11/01/2024 7:[address] CHEST ABDOMEN PELVIS W CONTRAST ED 11/01/2024 6:16 PM CDT CTA HEAD NECK W WO CONTRAST ED 10/20 6:15 PM CDT TROPONIN T HIGH-SENSITIVITY 2-HOUR Timed 11/01/2024 4:[address] HEAD WO CONTRAST ED 11/01/2024 2:37 PM CDT XR CHEST 1 VIEW ED 11/01/2024 2:27 PM CDT EGFR STAT 11/01/2024 2:03 PM CDT DIFFERENTIAL AUTO STAT 11/01/2024 2:03 PM CDT PRO B-TYPE NATRIURETIC PEPTIDE STAT 0 11/01/2024 2:03 PM CDT TROPONIN T HIGH-SENSITIVITY SERIES (BASELINE, 2HR, 4HR, 6HR) STAT 11/01/2024 2:03 PM CDT CBC WITH AUTO DIFFERENTIAL STAT 11/01 2:03 PM CDT COMPREHENSIVE METABOLIC PANEL STAT 2:03 PM CDT ECG 12-LEAD STAT 11/01/2024 1:59 PM CDT URINALYSIS, MICROSCOPIC ONLY Routine 05/2025 9:47 AM CDT UTI symptoms URINALYSIS AND REFLEX TO MICROSCOPIC AND CULTURE Routine 10/31/2024 9:47 AM CDT UTI symptoms XR CHEST PA LATERAL 2 VIEWS Schedule RA, Read RA (Appt Today, Awaiting Results) 10/24/2024 12:24 PM CDT SOB (shortness of breath) CT HEART CALCIUM Schedule Routine, Read Routine (OP Routine) 10/17/2024 9:30 AM CDT POCT GLUCOSE DEVICE Routine 09/13/2024 9:47 AM CDT SURGICAL PATHOLOGY Routine 09/13/2024 9:28 AM CDT Ulcer of esophagus without bleeding ESOPHAGOGASTRODUODENOSCOPY BIOPSY 09/13/2024 9:20 AM CDT Ulcer of esophagus without bleeding EGD 09/13/2024 9:17 AM CDT POC BLOOD GAS AND CHEMISTRIE S, VENOUS Routine 09/13/2024 8:54 AM CDT HI INJECTION SINGLE/HOSPITAL NURSE TRIG [place] 1/2 MUSCLES Routine 09/08/2024 9:00 AM CDT Myofascial pain syndrome, cervical XR SHOULDER RIGHT 2 OR MORE VIEWS Schedule Routine, Read Routine (OP Routine) 09/07/2024 CT HEAD WO CONTRAST Schedule Routine, Read Routine (OP Routine) 09/07/2024 POCT HEMOGLOBIN A1C Routine 08/22/2024 8:55 AM REIKI PRACTITIONER Type 2 diabetes mellitus with diabetic nephropathy, with long-term current use of insulin (HCC) DIABETIC EYE EXAM Routine 07/27/2024 12:37 PM REIKI PRACTITIONER COLONOSCOPY 03/01/2024 8:49 AM CDT DEXA AXIAL [...] Maintenance Allergies No known active allergies Medications TourjiveStyle Madhav 3 [place] Use Madhav 3 reader to scan Madhav 3 sensor 024 Active pen needle, diabetic (Easy Touch) 32 gauge x 5/32 needleIndications :Type 2 diabetes mellitus with diabetic neuropathy, with long-term current use of insulin ([facility]) USE DIRECTED FOUR TIMES DAILY 100 each 3 024 Active fluticasone propionate (FLONASE) 50 mcg/actuation nasal spray Administer 2 sprays into each nostril daily as needed for rhinitis Active aspirin 81 mg chewable tablet Take 1 tablet (81 mg total) by mouth daily 90 tablet 1 024 Active methoxy peg-epoetin beta (MIRCERA INJ) 75 mcg once every 2 weeks 024 2024 Active gabapentin (NEURONTIN) 100 mg capsuleIndication s:Diabetic polyneuropathy associated with type 2 diabetes mellitus (HCC) TAKE 1 CAPSULE BY MOUTH 3 TIMES PER WEEK AFTER HEMODIALYSIS 40 capsule 1 024 Active atorvastatin (LIPITOR) 20 mg tablet Take 1 tablet (20 mg total) by mouth nightly 024 Active calcitRIOL (ROCALTROL) 0.25 mcg capsule Take 1 capsule (0.25 mcg total) by mouth 024 Active blood glucose diagnostic (Easy Touch Test Strip) stripIndications: Type 2 diabetes mellitus with diabetic neuropathy, with long-term current use of insulin ([facility]) 1 each by other route daily [...] mg total) by mouth daily [address] (PROTONIX) 40 mg EC tabletIndications :Gastroesophageal reflux disease without esophagitis Take 1 tablet (40 mg total) by mouth daily before breakfast 90 tablet 3 025 Active insulin lispro (HumaLOG, ADMELOG) 100 unit/mL pen for injectionIndicati ons:Type 2 diabetes mellitus with diabetic nephropathy, with long-term current use of insulin ([facility]) Inject 4 units SQ before meals along with sliding scale. Max TDD 20 units 15 mL 3 04/04/2 025 Active cholecalciferol (VITAMIN D-3) 5,000 unit capsule Take 1 capsule (5,000 Units total) by mouth daily Active carvediloL (COREG) 6.25 mg tablet Take 1 tablet (6.25 mg total) by mouth 2 (two) times a day with meals Active hydrALAZINE (APRESOLINE) 25 mg tablet Take 1 tablet (25 mg total) by mouth 3 (three) times a day 90 tablet 025 2024 Active meclizine (ANTIVERT) 25 mg tablet Take 1 tablet (25 mg total) by mouth daily for 5 days 5 tablet 025 2024 Active LANTUS 100 unit/mL (3 mL) pen for injection Inject 11 Units under the skin nightly 6 mL Active cefdinir (OMNICEF) 300 mg capsule Take 1 capsule (300 mg total) by mouth daily for 4 days 4 capsule 2024 Active benztropine (COGENTIN) 2 mg tablet Take 1 tablet (2 mg total) by mouth nightly Active lidocaine (LIDODERM) 5 % Place 1 patch on the skin daily for 12 hours Remove & discard patch within 12 hours or as directed by . 30 patch 11 2024 Active omeprazole (PriLOSEC) 20 mg capsuleIndication s:Gastroesophagea l reflux disease, unspecified whether esophagitis present Take 1 capsule (20 mg total) by mouth daily 90 capsule 021 2021 Discontinued lidocaine (ASPERCREME) 4 % adhesive patch,medicated Place 1 patch on the skin daily as needed to lower back 2024 Discontinued(A lternate therapy) polyethylene glycol (MIRALAX) 17 gram/dose bulk powder Take 17 g by mouth daily as needed (Constipation) 595 g 024 2024 Discontinued(P atient Reported) docusate sodium (COLACE) 100 mg capsule Take 1 capsule (100 mg total) by mouth every 12 (twelve) hours 60 capsule 024 2024 Discontinued(P atient Reported) hydrALAZINE (APRESOLINE) 25 mg tabletIndications :hypertension Take 1 tablet (25 mg total) by mouth 2 (two) times a day 60 tablet 1 024 2024 Discontinued sucroferric oxyhydroxide 500 mg tablet,chewable Take 0.5 tablets (250 mg total) by mouth 3 (three) times a day 2024 Discontinued(P atient Reported) FeroSuL 325 mg (65 mg iron) tabletIndications :Iron deficiency anemia, unspecified iron deficiency anemia type Take 1 tablet (325 mg total) by mouth daily with breakfast 90 tablet 1 024 2024 Discontinued(P atient Reported) carvediloL (COREG) 3.125 mg tablet Take 1 tablet (3.125 mg total) by mouth 2 (two) times a day 024 2024 Discontinued(A lternate therapy) NIFEdipine CC 60 mg 24 hr tablet Take 1 tablet (60 mg total) by mouth nightly 024 2024 Discontinued(P atient Reported) famotidine (PEPCID) 20 mg tablet Take 1 tablet (20 mg total) by mouth 2 (two) times a day 2024 Discontinued(P atient Reported) hydrALAZINE (APRESOLINE) 25 mg tablet TAKE 1 TABLET(25 MG) BY MOUTH TWICE DAILY 60 tablet 025 2024 Discontinued LANTUS 100 unit/mL (3 mL) pen for injection Inject 18 Units under the skin nightly 025 2024 Discontinued Active Problems Problem Noted Date Diagnosed Date Hypertensive urgency 11/01/2024 History of hyperlipidemia 11/01/2024 History of diabetes mellitus 11/01/2024 Metabolic syndrome 11/01/2024 Neuropathy involving both lower extremities 10/20 Hypochloremia 11/01/2024 Hyponatremia 11/01/2024 Lightheadedness 11/01/2024 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 mellitus 07/22/2024 Assessment & Plan (10/24/2024 11:09 AM CDT): Following with optho Ulcer of esophagus without bleeding 07/18/2024 ESRD (end stage renal disease) on dialysis 07/14 Type 2 diabetes mellitus wit h diabetic nephropathy, without long-term current use of insulin 07/07/2024 Hyperlipidemia associated with type 2 diabetes m saba 07/07/2024 Assessment & Plan (10/24/2024 11:30 AM CDT): Preivously discussed ok to restart atorvastatin, but also given overall health status reasonable to continue holding, especially if had side effects with restarting Assessment & Plan (07/14/2024 2:30 PM REIKI PRACTITIONER): Continue Lipitor Assessment & Plan (07/14/2024 8:56 AM REIKI PRACTITIONER): Ok to restart atorvastatin, but also given [...] ESRD on hemodialysis 11/02/2023 Assessment & Plan (10/24/2024 10:56 AM CDT): Following with nephrology Assessment & Plan (07/14/2024 2:39 PM REIKI PRACTITIONER): Patient is needing a Perma catheter exchange [...] proceed. Assessment & Plan (07/14/2024 8:51 AM REIKI PRACTITIONER): Following with nephrology Assessment & Plan (01/06/2024 12:53 PM CDT): History of ESRD on HD Thu//Thu. Missed [...] 10/30/2023 Assessment & Plan (05/06/2024 7:49 AM REIKI PRACTITIONER): Reviewed hospital discharge summary Now resolved Upcoming appointment with neurology Leg swelling 10/07/2023 Bandemia 12/20/2022 Shortness of breath 12/13/2022 Chronic diastolic congestive heart failure 12/06 Assessment & Plan (10/24/2024 1:54 PM CDT): Euvolemic Following with cardiology Assessment & Plan (01/05/2024 10:46 PM CDT): Patient euvolemic at this time. -continue coreg, nifedipine, hydralazine for BP control -nephrology c/s for HD Bibasilar consolidations 12/06/2022 Movement disorder 12/06/2022 Abnormal urinalysis 11/07/2022 Anemia in chronic kidney disease, on chronic sara lysis 10/10/2022 Assessment & Plan (11/12/2023 1:01 PM CDT): Last h/h stable Assessment & Plan (07/24/2023 1:51 PM REIKI PRACTITIONER): Chronic/stable Parkinsonism 08/14/2022 Assessment & Plan (10/24/2024 10:57 AM CDT): Following with neurology Assessment & Plan (07/14/2024 8:54 AM REIKI PRACTITIONER): Following with neurology, recommend reaching out to them in regards to restarting benztropine. Consider waiting until after restarts other medications given daughter reports tremors controlled off benztropine currently Assessment & Plan (11/10/2023 4:43 PM CDT): Following with neurology On cogentin Assessment & Plan (07/24/2023 1:50 PM REIKI PRACTITIONER): Following with neurology On cogentin twice a day Assessment & Plan (01/23/2023 9:20 AM CDT): Following with neurology On cogentin twice a day Assessment & Plan (10/10/2022 10:41 AM CDT): Following with neurology On cogentin Assessment & Plan (08/14/2022 10:46 AM REIKI PRACTITIONER): Following with neurology, reviewed note On cogentin [...] care Assessment & Plan (08/14/2022 10:47 AM REIKI PRACTITIONER): Following with podiatry Assessment & Plan (04/02/2022 [...] regarding volume management, possible long term care phlebotomist dialysis planning, expedite OP f/u. Serologies and urine studies ordered. ED neg, compliments neg, cryoglobulin pending, ANCA pending, HIV neg. Continued -Added metolazone 2.5mg/daily per renal 09/13- with improving swelling, Cr bump to 2.33 so held further -Transitioned to PO agents prior to DC (09/17) with ongoing clinical improvement. Goal weight 155lbs -Home with family at [place], air drill operator consulted to review salt restrictions. [...] weight 155lbs -Home with family at [place], air drill operator consulted to review salt restrictions. [...] regarding volume management, possible long term care phlebotomist dialysis planning, expedite OP f/u. Serologies and urine studies ordered. -Added metolazone 2.5mg/daily per renal. -Anticipate likely transition to PO agents prior to DC with ongoing clinical improvement. Goal weight 145-150lbs -Home with family at [place], air drill operator consulted to review salt restrictions. [...] regarding volume management, possible long term care phlebotomist dialysis planning, expedite OP f/u. Serologies and [...] regarding volume management, possible long term care phlebotomist dialysis planning, expedite OP f/u. Assessment & [...] -consider renal consult regarding long term care phlebotomist dialysis planning, expedite OP f/u. Assessment & [...] -consider renal consult regarding long term care phlebotomist dialysis planning. Assessment & Plan (09/06/2021 10:28 [...] without behavioral disturbance 08/19/2021 Assessment & Plan (10/24/2024 10:56 AM CDT): Following with neurology Assessment & Plan (07/14/2024 8:53 AM REIKI PRACTITIONER): Following with neurology Assessment & Plan (01/05/2024 10:40 PM CDT): Follows with neurology. -continue risperidone 2mg QHS -continue benztropine 2mg daily Assessment & Plan (11/10/2023 4:37 PM CDT): Following with neurology Assessment & Plan (07/24/2023 1:50 PM REIKI PRACTITIONER): Following with neurology Assessment & Plan (01/23/2023 9:18 AM CDT): Following with neurology Assessment & Plan (10/10/2022 10:37 AM CDT): Following with neurology, ordered MRI, # given to son to schedule Assessment & Plan (06/09/2022 3:37 PM REIKI PRACTITIONER): Needs to reschedule with neurology Looking into assisted, but declined for [facility] for schizoaffective disorder Assessment & Plan (01/14/2022 9:05 AM CDT): Following with psychiatry Assessment & Plan (09/03/2021 3:28 PM CDT): Chronic, stable. Alert, oriented to self, current place. Continue to monitor. Clock drawing test at next interval. Consideration for Aricept. Encounter for Medicare annual wellness exam 12/21 Assessment & Plan (10/24/2024 11:13 AM CDT): Reviewed PMH & PHQ Screening PHQ-2 Total Score (If total score is 3 or more points, staff should administer the PHQ-9): (Patient-Rptd) (P) 0 Hearing/vision screening reviewed, referrals placed as needed Fall risk reviewed Reviewed medications and supplements Specialists: endocrine, nephrology, cardiology, neurology, psychiatry, GI evidence of cognitive impairment HCM: orders placed as needed Here with son today who does not manage medications so unclear what she is currently taking since previously was holding most medications Assessment & Plan (11/10/2023 4:42 PM CDT): [...] needed Assessment & Plan (06/09/2022 3:37 PM REIKI PRACTITIONER): Reviewed PM & PHQ Screening PHQ-2 Total [...] Schizoaffective disorder, bipolar type Assessment & Plan (10/24/2024 10:57 AM CDT): Following with psychiatry Assessment & Plan (08/18/2024 8:44 AM REIKI PRACTITIONER): Chronic, stable. Does not report any stephanie [...] discussed. Assessment & Plan (07/14/2024 8:54 AM REIKI PRACTITIONER): Following with psychiatry, recommend reaching out to [...] psychiatry Assessment & Plan (07/24/2023 1:50 PM REIKI PRACTITIONER): Following with psychiatry Assessment & Plan (01/23/2023 [...] discussed. Assessment & Plan (08/09/2021 5:42 AM REIKI PRACTITIONER): Following with psychiatry Assessment & Plan (08/07/2021 3:28 PM REIKI PRACTITIONER): Chronic condition, switch to Haldol and has had multiple different problems including acute kidney failure in infectious process. Records not available at outside hospital-[facility]. Confounded by delirium. Currently experiencing delirium will discontinue Haldol and return to Risperdal as previously taking. Risperdal was discontinued due to poorly-controlled diabetes. Monitor in 1 to 2 weeks. Assessment & Plan (07/03/2021 7:24 AM REIKI PRACTITIONER): Following with psychiatry D/c risperidone, started on haldol Assessment & Plan (07/01/2021 9:16 PM REIKI PRACTITIONER): Chronic, stable. 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 The patient previously lived on her own and was observed to be hoarding. See additional problems-dementia. Evaluate again in 1 month after starting Risperdal. Iron deficiency anemia 04/02/2020 Assessment & Plan (05/06/2024 7:51 AM REIKI PRACTITIONER): Recommend discussing IV iron with nephrology Assessment & Plan (10/02/2020 4:35 PM CDT): Continue iron Assessment & Plan (05/28/2020 1:51 PM REIKI PRACTITIONER): Iron levels recently normalized, but still anemic, repeat today Assessment & Plan (04/16/2020 11:45 AM CDT): Recent iron within normal limits, H/H improving, continue supplementation until normalized Gastroesophageal reflux disease without esophagi tis 04/02/2020 Assessment & Plan (10/24/2024 10:57 AM CDT): continue protonix Following with GI Assessment & Plan (07/14/2024 8:56 AM REIKI PRACTITIONER): Restart protonix Upcoming EGD Assessment & Plan (01/05/2024 10:40 PM CDT): -continue famotidine Assessment & Plan (10/02/2020 4:35 PM CDT): Continue omeprazole Assessment & Plan (07/24/2020 2:06 PM REIKI PRACTITIONER): Recurrent symptoms off omeprazole, restart Assessment & Plan (05/28/2020 1:51 PM REIKI PRACTITIONER): Iron levels recently normalized, but still anemic, repeat today Assessment & Plan (04/02/2020 1:26 PM CDT): Start PPI History of amputation of toe 01/19/2020 Assessment & Plan (01/08/2021 3:50 PM CDT): Stable Assessment & Plan (10/02/2020 4:35 PM CDT): Stable Assessment & Plan (04/30/2020 1:00 PM REIKI PRACTITIONER): Stable Assessment & Plan (02/14/2020 5:15 PM CDT): Healing well Following with surgeon/wound clinic Assessment & Plan (01/19/2020 5:17 PM CDT): Has home health Following with vascular Hypertension associated with diabetes 12/13/2019 Assessment & Plan (10/24/2024 11:12 AM CDT): BP controlled Assessment & Plan (07/14/2024 2:32 PM REIKI PRACTITIONER): Continue carvedilol, hydralazine Assessment & Plan (07/14/2024 8:51 AM REIKI PRACTITIONER): BP controlled today off medication Daughter reports nephrology said could restart medication, is planning to restart coreg first and monitor blood pressure prior to restarting nifedipine/hydralazine Assessment & Plan (05/06/2024 7:48 AM REIKI PRACTITIONER): BP controlled Continue nifedipine, hold prior to [...] x1 with HD. Most recent admission at [facility] with initiation of hydralazine and nifedipine [...] amlodipine Assessment & Plan (08/03/2023 4:02 PM REIKI PRACTITIONER): BP uncontrolled Start 5mg amlodipine Assessment & Plan (07/24/2023 1:49 PM REIKI PRACTITIONER): Blood pressure borderline today off medications Assessment & Plan (01/23/2023 9:18 AM CDT): Blood pressure borderline low today, asymptomatic Checking labs Advised to decrease amlodipine to 5mg and monitor blood pressure Assessment & Plan (10/10/2022 10:50 AM CDT): Continue coreg 6.25mg twice a day & 40mg valsartan Assessment & Plan (08/14/2022 10:43 AM REIKI PRACTITIONER): Blood pressure at goal, continue coreg 6.25mg twice a day Assessment & Plan (06/09/2022 3:32 PM REIKI PRACTITIONER): Blood pressure at goal, continue coreg 3.125mg [...] day Assessment & Plan (08/05/2021 10:35 AM REIKI PRACTITIONER): Blood pressure at goal Increase amlodipine to 10mg & d/c hydralazine per cardiology Assessment & Plan (05/28/2021 4:59 PM REIKI PRACTITIONER): Blood pressure above goal, but previously within [...] lisinopril Assessment & Plan (08/28/2020 12:12 PM REIKI PRACTITIONER): Blood pressure at goal Continue lisinopril Assessment & Plan (07/24/2020 2:05 PM REIKI PRACTITIONER): Blood pressure at goal Continue lisinopril Assessment & Plan (05/28/2020 1:50 PM REIKI PRACTITIONER): BP borderline Continue 10mg lisinopril Continue to monitor Assessment & Plan (04/30/2020 12:32 PM REIKI PRACTITIONER): BP borderline Continue 10mg lisinopril Continue to [...] use of insulin 08/30/2019 Assessment & Plan (10/24/2024 10:56 AM CDT): Following with endocrine Assessment & Plan (07/14/2024 2:31 PM REIKI PRACTITIONER): Controlled. Continue as per Endocrine and PCP Assessment & Plan (07/14/2024 8:50 AM REIKI PRACTITIONER): Following with endocrine, reviewed note Holding insulin [...] +SSI Assessment & Plan (07/24/2023 1:49 PM REIKI PRACTITIONER): Lab Results Component Value Date HGBA1C 8.1 [...] trulicity Assessment & Plan (08/14/2022 10:42 AM REIKI PRACTITIONER): Following with endocrine Continue lantus, 12 units humalog TIDAC & 1.5mg trulicity Assessment & Plan (06/09/2022 3:32 PM REIKI PRACTITIONER): Following with endocrine Home blood sugar at [...] for strict med oversight by family at [place] reviewed with daughter this admit. Assessment & [...] for strict med oversight by family at [place] reviewed with daughter this admit. Assessment & [...] and nephropathy. Med oversight by family at [place]. Assessment & Plan (09/14/2021 12:22 PM CDT): [...] as she had discussed this with outpatient set builder - repeat A1c - resume home statin, not currently on feliciano due to kidney function Assessment & Plan (08/05/2021 10:35 AM REIKI PRACTITIONER): Continue 15 units lantus twice a day Assessment & Plan (07/03/2021 7:24 AM REIKI PRACTITIONER): Fasting blood sugar significantly improved Risperidone changed Continue current meds Continue to monitor Assessment & Plan (06/18/2021 11:22 AM REIKI PRACTITIONER): Increase lantus to 60 units nightly, if blood sugar still above goal after 1 week split into 33 units twice a day Follow up with blood sugar via portal in 2 weeks Continue jardiance 25mg Continue trulicity 4.5mg weekly Assessment & Plan (05/28/2021 4:58 PM REIKI PRACTITIONER): Increase lantus to 55 units nightly Continue [...] weekly Assessment & Plan (08/28/2020 1:00 PM REIKI PRACTITIONER): DM Care Plan: Meds: Lantus - continue [...] recheck Assessment & Plan (07/24/2020 2:05 PM REIKI PRACTITIONER): Formulary change 2/2 insurance, switched to trulicity. Will increase to 1.5mg Assessment & Plan (05/28/2020 1:50 PM REIKI PRACTITIONER): Check a1c Sixto isn't checking blood sugar regularly, but when she is she has several >200 so I lean towards increasing if a1c>7 Assessment & Plan (04/30/2020 12:31 PM REIKI PRACTITIONER): Blood sugar improved on 40 units basaglar [...] Trivalent, IM (MDV) 04/17/2017 PPD TEST 10/22/2023 [employer] SARS-CoV-2 Monovalent Vaccination (12+ Yrs) PURPLE 06/11/2021,10/13/2020,09/22/2020 [...] doctor or pharmacy Often 01/20/2024 [facility] Utilities Answer Date Recorded In the past 12 months has th e electric, gas, oil, or water company threatened to shut off services in your home? Yes 11/07/2024 Social Connection and Isolation Panel [NHANES] A nswer Date Recorded In a typical week, how many times do you talk on the phone with family, friends, or neighbors? Patient unable to answer 11/07/2024 How often do you get togethe r with friends or relatives? Patient unable to answer 11/07/2024 How often do you attend chur ch or orthodox services? Patient unable to answer 11/07/2024 Do you belong to any clubs o r organizations such as jew groups, unions, fraternal or athletic groups, or school groups? Patient unable to answer 11/07/2024 How often do you attend meet ings of the clubs or organizations you belong to? Patient unable to answer 11/07/2024 Are you , , di vorced, , never , or living with a partner? 11/07/2024 AUDIT-C Answer Date Recorded Q1: How often [...] care, and heating? Not hard at all 11/07/2024 PHQ-2 Answer Date Recorded PHQ-2 Total Score 0 11/03/2024 Hunger Vital Sign Answer Date Recorded Within the past 12 months, y ou worried that your food would run out before you got the money to buy more. Sometimes true Within the past 12 months, t he food you bought just didn't last and you didn't have money to get more. Sometimes true PRAPARE - Transportation Answer Date Re corded In the past 12 months, has l ack of transportation kept you from medical appointments or from getting medications? No 10/20 In the past 12 months, has l ack of transportation kept you from meetings, work, or from getting things needed for daily living? No 11/07/2024 Housing Stability Vital Sign Answer Fuentes e [...] Answer Date Recorded PHQ-9 Total Score 0 11/03/2024 Housing Stability Vital Sign Answer Fuentes e Recorded In the last 12 months, was t here a time when you were not able to pay the mortgage or rent on time? No 11/07/2024 In the past 12 months, how m any times have you moved where you were living? 0 11/07/2024 At any time in the past 12 m [facility], were you homeless or living in a retirement (including now)? No 11/07/2024 Personal Safety Answer Date Recorded Have you ever been in or are you currently in a harmful physical or emotional relationship or is someone making you feel afraid or unsafe? Denies 11/01/2024 Comments No Sex and Gender Information Value Date Recorded Sex Assigned at Not on file Legal Sex Female 9:03 AM REIKI PRACTITIONER Gender Identity Female 02/08/2020 6:39 PM CDT Sexual Orientation Not on file Last Filed Vital Signs Vital Sign Reading Time Taken Comments Blood Pressure 176/57 11/05/2024 7:00 AM CDT Pulse 71 11/05/2024 7:00 AM CDT Temperature 37 C (98.6 F) 11/05/2024 7:00 AM CDT Respiratory Rate 16 11/05/2024 7:00 AM CDT Oxygen Saturation 100% 11/05/2024 4:15 AM CDT Inhaled Oxygen Concentration - - Weight 63.6 kg (140 lb 3.4 oz) 11/04/2024 6:05 A M CDT Height 154.9 cm (5' 1 ) 11/01/2024 9:50 PM CDT Body Mass Index 26.49 11/01/2024 9:50 PM CDT Results * POCT glucose (11/05/2024 11:49 AM CDT) Glucose, POC 187 70 - 199 mg/dL Glucose comment 1 RN/MD Notified NILSA Blood 11/05/2024 11:4 9 AM CDT 11/05/2024 11:49 AM CDT Juan J Heller MD LAB POCT ORDERABLES - DEVICE Final Result NILSA [address] [facility] [facility] [place] [address] * (ABNORMAL) eGFR (11/05/2024 6:52 AM CDT) eGFR 8(L) >=60 mL/min/1. 73 [...] interpretive data was last reviewed 2021. Blood 11/05/2024 6:52 AM CDT 11/05/2024 7:12 AM CDT us Brad Sebastien Smallwood CHECKERER HAND LAB BLOOD ORDERABLES Fin al Result [facility] [address] [facility] [facility] Department of Laboratories [place], [place] [id number] * Differential, auto (11/05/2024 6:52 AM CDT) Pathologist [facility] [place] Neutrophil abs 5.74 1.50 - 6.50 K/cumm Imm gran abs 0.05 0.00 - 0.10 K/cumm [facility] Lymphocyte abs 1.98 0.80 - 3.30 K/cumm [facility] Monocyte abs 0.73 0.20 - 0.80 K/cumm [facility] Eosinophil abs 0.13 0.00 - 0.50 K/cumm [facility] Basophil abs 0.03 0.00 - 0.10 K/cumm [facility] Neutrophil pct 66.3 % [facility] Comment: Interpretive Data Percent cell count reference ranges are not reported, since discordance with absolute values may lead to misinterpretation of CBC data. Current Interpretive Data was last revised on 2017. Imm gran pct 0.6 % [facility] Comment: Interpretive Data Percent cell count reference ranges are not reported, since discordance with absolute values may lead to misinterpretation of CBC data. Current Interpretive Data was last revised on 2017. Lymphocyte pct 22.9 % [facility] Comment: Interpretive Data Percent cell count reference ranges are not reported, since discordance with absolute values may lead to misinterpretation of CBC data. Current Interpretive Data was last revised on 2017. Monocyte pct 8.4 % [facility] Comment: Interpretive Data Percent cell count reference ranges are not reported, since discordance with absolute values may lead to misinterpretation of CBC data. Current Interpretive Data was last revised on 2017. Eosinophil pct 1.5 % [facility] Comment: Interpretive Data Percent cell count reference ranges are not reported, since discordance with absolute values may lead to misinterpretation of CBC data. Current Interpretive Data was last revised on 2017. Basophil pct 0.3 % [facility] Comment: Interpretive Data Percent cell count reference ranges are not reported, since discordance with absolute values may lead to misinterpretation of CBC data. Current Interpretive Data was last revised on 2017. Blood 11/05/2024 6:52 AM CDT 11/05/2024 7:12 AM CDT us Brad Sebastien Smallwood CHECKERER HAND LAB BLOOD ORDERABLES Fin al Result [facility] [address] [facility] Department of Laboratories [place], [place] [id number] * (ABNORMAL) CBC with auto differential (11/05/2024 6:52 AM CDT) Pathologist [facility] [place] WBC 8.66 3.80 - 9.90 K/cumm Hgb 8.6(L) 11.9 - 15.5 g/dL [facility] Hct 26.6(L) 35.6 - 45.5 % [facility] Plt 215 150 - 400 K/cumm [facility] MPV 10.4 9.1 - 12.3 fL [facility] RBC 2.60(L) 3.90 - 5.20 M/cumm [facility] MCV 102.3(H) 81.3 - 96.4 fL [facility] MCH 33.1 27.1 - 33.3 pg [facility] MCHC 32.3 32.3 - 35.7 g/dL [facility] RDW CV 13.8 11.1 - 14.9 % [facility] RDW SD 51.4(H) 35.7 - 48.1 fL [facility] NRBC abs 0.09(H) 0.00 - 0.01 K/cumm [facility] Blood 11/05/2024 6:52 AM CDT 11/05/2024 7:12 AM CDT [facility] LAB BLOOD ORDERABLES Fin al Result Performing Organization Address [facility] Co de Phone Number NILSA [address] [address] * (ABNORMAL) Basic metabolic panel (11/05/2024 6:52 AM CDT) [facility] Sodium 135 135 - 145 mmol/L Potassium, pl 4.5 3.3 - 4.9 mmol/L [facility] Chloride 96(L) 97 - 110 mmol/L [facility] CO2 28 22 - 32 mmol/L [facility] Anion gap 11 2 - 15 mmol/L [facility] BUN 34(H) 6 - 25 mg/dL [facility] Creatinine 5.23(H) 0.60 - 1.10 mg/dL [facility] Glucose 145 70 - 199 mg/dL [facility] Comment: Interpretive Data Fasting [...] 2022. Calcium 9.0 8.5 - 10.3 mg/dL [facility] Blood 11/05/2024 6:52 AM CDT 11/05/2024 7:12 AM CDT [facility] Sebastien Smallwood CHECKERER HAND LAB BLOOD ORDERABLES Fin al Result Performing Organization Address [facility] Co de Phone Number NILSA [address] [address] * (ABNORMAL) POCT glucose (11/04/2024 9:22 PM CDT) Glucose, POC 223(H) 70 - 199 mg/dL Blood 11/04/2024 9:22 PM CDT 11/04/2024 9:22 PM CDT Juan J Heller MD LAB POCT ORDERABLES - DEVICE Final Result Performing Organization Address [facility] Co de Phone Number [address] [place] [address] * (ABNORMAL) POCT glucose (11/04/2024 4:33 PM CDT) Glucose, POC 240(H) 70 - 199 mg/dL Glucose comment 1 Use This Result [facility] Glucose comment 2 RN/MD Notified [facility] Blood 11/04/2024 4:33 PM CDT 11/04/2024 4:33 PM CDT Juan J Heller MD LAB POCT ORDERABLES - DEVICE Final Result Performing Organization Address [facility] Co de Phone Number [address] [place] [address] * POCT glucose (11/04/2024 11:12 AM CDT) Glucose, POC 177 70 - 199 mg/dL Glucose comment 1 RN/MD Notified [facility] Blood 11/04/2024 11:1 2 AM CDT 11/04/2024 11:12 AM CDT Juan J Heller MD LAB POCT ORDERABLES - DEVICE Final Result Performing Organization Address [facility] de Phone Number [address] [place] [address] * POCT glucose (11/04/2024 9:37 AM CDT) Glucose, POC 138 70 - 199 mg/dL Blood 11/04/2024 9:37 AM CDT 11/04/2024 9:37 AM CDT Juan J Heller MD LAB POCT ORDERABLES - DEVICE Final Result Performing Organization Address [facility] Co de Phone Number NILSA [address] [address] * POCT glucose (11/04/2024 6:09 AM CDT) Glucose, POC 190 70 - 199 mg/dL Blood 11/04/2024 6:09 AM CDT 11/04/2024 6:09 AM CDT Juan J Heller MD LAB POCT ORDERABLES - DEVICE Final Result Performing Organization Address [facility] de Phone Number NILSA [address] [address] * (ABNORMAL) eGFR (11/04/2024 4:16 AM CDT) [facility] eGFR 6(L) >=60 mL/min/1. 73 m2 Comment: Interpretive Data [...] interpretive data was last reviewed 2021. Blood 11/04/2024 4:16 AM CDT 11/04/2024 4:35 AM CDT us Brad Sebastien Smallwood CHECKERER HAND LAB BLOOD ORDERABLES Fin al Result NILSA [address] [facility] [place] [address] * Differential, auto (11/04/2024 4:16 AM CDT) Pathologist [facility] [place] Neutrophil abs 4.99 1.50 - 6.50 K/cumm Imm gran abs 0.05 0.00 - 0.10 K/cumm [facility] Lymphocyte abs 2.56 0.80 - 3.30 K/cumm [facility] Monocyte abs 0.70 0.20 - 0.80 K/cumm [facility] Eosinophil abs 0.15 0.00 - 0.50 K/cumm [facility] Basophil abs 0.03 0.00 - 0.10 K/cumm [facility] Neutrophil pct 58.7 % [facility] Comment: Interpretive Data Percent cell count reference ranges are not reported, since discordance with absolute values may lead to misinterpretation of CBC data. Current Interpretive Data was last revised on 2017. Imm gran pct 0.6 % [facility] Comment: Interpretive Data Percent cell count reference ranges are not reported, since discordance with absolute values may lead to misinterpretation of CBC data. Current Interpretive Data was last revised on 2017. Lymphocyte pct 30.2 % [facility] Comment: Interpretive Data Percent cell count reference ranges are not reported, since discordance with absolute values may lead to misinterpretation of CBC data. Current Interpretive Data was last revised on 2017. Monocyte pct 8.3 % [facility] Comment: Interpretive Data Percent cell count reference ranges are not reported, since discordance with absolute values may lead to misinterpretation of CBC data. Current Interpretive Data was last revised on 2017. Eosinophil pct 1.8 % [facility] Comment: Interpretive [...] Data was last revised on 2017. Blood 11/04/2024 4:16 AM CDT 11/04/2024 4:35 AM CDT [facility] [place] CHECKERER HAND LAB BLOOD ORDERABLES Fin al Result Performing Organization Address [facility] Co de Phone Number NILSA [address] [place] [address] * (ABNORMAL) CBC with auto differential (11/04/2024 4:16 AM CDT) WBC 8.48 3.80 - 9.90 K/cumm Hgb 7.3(L) 11.9 - 15.5 g/dL [facility] Hct 22.2(L) 35.6 - 45.5 % [facility] Plt 196 150 - 400 K/cumm [facility] MPV 10.4 9.1 - 12.3 fL [facility] RBC 2.24(L) 3.90 - 5.20 M/cumm [facility] MCV 99.1(H) 81.3 - 96.4 fL [facility] MCH 32.6 27.1 - 33.3 pg [facility] MCHC 32.9 32.3 - 35.7 g/dL [facility] RDW CV 13.4 11.1 - 14.9 % [facility] RDW SD 48.3(H) 35.7 - 48.1 fL [facility] NRBC abs 0.02(H) 0.00 - 0.01 K/cumm [facility] Blood 11/04/2024 4:16 AM CDT 11/04/2024 4:35 AM CDT [employer] CHECKERER HAND LAB BLOOD ORDERABLES Fin al Result Performing Organization Address [facility] Co de Phone Number NILSA [address] [place] [address] * (ABNORMAL) Basic metabolic panel (11/04/2024 4:16 AM CDT) Sodium 135 135 - 145 mmol/L Potassium, pl 4.7 3.3 - 4.9 mmol/L [facility] Chloride 95(L) 97 - 110 mmol/L [facility] CO2 25 22 - 32 mmol/L [facility] Anion gap 15 2 - 15 mmol/L [facility] BUN 57(H) 6 - 25 mg/dL [facility] Creatinine 6.58(H) 0.60 - 1.10 mg/dL [facility] Glucose 153 70 - 199 mg/dL [facility] Comment: Interpretive Data Fasting [...] 2022. Calcium 8.3(L) 8.5 - 10.3 mg/dL [facility] Blood 11/04/2024 4:16 AM CDT 11/04/2024 4:35 AM CDT Brad mSallwood NP LAB BLOOD ORDERABLES Antonio al Result [facility] [address] [facility] [place] [address] * (ABNORMAL) POCT glucose (11/03/2024 8:27 PM CDT) Glucose, POC 222(H) 70 - 199 mg/dL Glucose comment 1 RN/MD Notified [facility] Blood 11/03/2024 8:27 PM CDT 11/03/2024 8:27 PM CDT Juan J Heller MD LAB POCT ORDERABLES - DEVICE Final Result Performing Organization Address [facility] Co de Phone Number NILSA [address] [facility] [place] [address] * (ABNORMAL) POCT glucose (11/03/2024 3:45 PM CDT) Glucose, POC 217(H) 70 - 199 mg/dL Glucose comment 1 Use This Result [facility] Glucose comment 2 RN/MD Notified [facility] Blood 11/03/2024 3:45 PM CDT 11/03/2024 3:45 PM CDT Juan J Heller MD LAB POCT ORDERABLES - DEVICE Final Result Performing Organization Address [facility] Co de Phone Number NILSA [facility] [place] [address] * MRI Brain WO Contrast (11/03/2024 1:17 PM CDT) Anatomical Region Laterality Modality Head and Neck N/A Magnetic Resonan ce 11/03/2024 1:21 PM CDT Narrative 11/03/2024 1:26 PM CDT EXAM DESCRIPTION: MRI BRAIN WO CONTRAST REASON FOR STUDY: Altered mental status of unspecified duration. No provision of focal neurologic deficits. No provided history of trauma or inciting and/or aggravating events. No provided past medical or surgical history. TECHNIQUE: Multiplanar imaging includes non-contrasted T1, T2, FLAIR, and diffusion with ADC map sequences. Additional sequence(s) sensitive to blood products. Images stored on PACS. Patient motion artifact variably spanning multiple sequences compromises evaluation. COMPARISON: CT head without contrast 11/02/2024 and 11/01/2024; CTA head/neck 11/01/2024; CT head/maxillofacial bones/cervical spine without contrast 07/12/2024. FINDINGS: CEREBRUM: No overt evidence of acute intra-axial hemorrhage, edema, mass effect, midline shift, or herniation. Senescent mineralization of the lentiform nuclei. WHITE MATTER: There is periventricular-subcortical as well as a patchy component of pontine T2/FLAIR hyperintense white matter disease, nonspecific, though likely secondary to chronic microvascular ischemia. POSTERIOR FOSSA: No acute abnormality. As above. DIFFUSION IMAGING: No restricted diffusion to suggest acute/subacute ischemia or infarct. EXTRAAXIAL SPACES: No extra-axial fluid collection. No extra-axial mass. BRAIN VOLUME: Mild cerebral volume loss. PITUITARY: Grossly unremarkable. VASCULATURE: No flow disturbance evident on this non angiographic study. Please reference CTA head 2 days prior for intracranial angiographic findings. CALVARIUM: No acute calvarial fracture. Hyperostosis frontalis interna. ORBITS: No acute abnormality. [place] ocular lenses replaced bilaterally. PARANASAL SINUSES AND MASTOIDS: Tiny focus of opacifying material in the dependent left sphenoid sinuses. Slight scattered fluid about the esjgo-pqwdazc-dbda-left mastoid air cells. Scattered fluid OTHER: No other significant finding. IMPRESSION: Within the limitations of patient motion artifact, no acute intracranial process with chronic findings as above. THIS IS AN ELECTRONICALLY VERIFIED FINAL REPORT 11/03/2024 1:26 PM - Electronically signed by Redd Hendrickson M.D. CHANDA T: Report ID: [id number] Reading Location: [place] [address] Procedure Note Redd Hendrickson MD - 11/03/2024 EXAM DESCRIPTION: MRI BRAIN WO CONTRAST REASON FOR STUDY: Altered mental status of unspecified duration. Noprovision of focal neurologic deficits. No provided history of trauma or inciting and/or aggravating events. No provided past medical or surgical history. TECHNIQUE: Multiplanar imaging includes non-contrasted T1, T2, FLAIR, and diffusion with ADC map sequences. Additional sequence(s) sensitive [employer]. Images stored on PACS. Patient motion artifact variablyspanning multiple sequences compromises evaluation. COMPARISON: CT head without contrast 11/02/2024 and 11/01/2024; CTA head/neck 11/01/2024; CT head/maxillofacial bones/cervical spine without contrast 07/12/2024. FINDINGS: CEREBRUM: No overt evidence of acute intra-axial hemorrhage, edema, mass effect, midline shift, or herniation. Senescentmineralization of the lentiform nuclei. WHITE MATTER: There is periventricular-subcortical as well as a patchy component of pontine T2/FLAIR hyperintense white matter disease, nonspecific, though likely secondary to chronic microvascular ischemia. POSTERIOR FOSSA: No acute abnormality. As above. DIFFUSION IMAGING: No restricted diffusion to suggest acute/subacute ischemia or infarct. EXTRAAXIAL SPACES: No extra-axial fluid collection. No extra-axialmass. BRAIN VOLUME: Mild cerebral volume loss. PITUITARY: Grossly unremarkable. VASCULATURE: No flow disturbance evident on this non angiographic study. Please reference CTA head 2 days prior for intracranial angiographicfindings. CALVARIUM: No acute calvarial fracture. Hyperostosis frontalis interna. ORBITS: No acute abnormality. [place] ocular lenses replaced bilaterally. PARANASAL SINUSES AND MASTOIDS: Tiny focus of opacifying material in the dependent left sphenoid sinuses. Slight scattered fluid about the yidhe-iuqioas-mlhu-left mastoid air cells. Scattered fluid OTHER: No other significant finding. IMPRESSION: Within the limitations of patient motion artifact, no acute intracranial process with chronic findings as above. THIS IS AN ELECTRONICALLY VERIFIED FINAL REPORT 11/03/2024 1:26 PM - Electronically signed by Redd Hendrickson M.D. CHANDA T: Report ID: [id number] Reading Location: [place] [address] Juan J Heller MD IMG MRI PROCEDURES Final Result * (ABNORMAL) POCT glucose (11/03/2024 11:14 AM CDT) [facility] Glucose, POC 259(H) 70 - 199 mg/dL Glucose comment 1 Use This Result NILSA Glucose comment 2 RN/MD Notified NILSA Blood 11/03/2024 11:1 4 AM CDT 11/03/2024 11:14 AM CDT Juan J Heller MD LAB POCT ORDERABLES - DEVICE Final Result NILSA RODRIGES [facility] [place] [address] * POCT glucose (11/03/2024 7:17 AM CDT) Glucose, POC 139 70 - 199 mg/dL Glucose comment 1 Use This Result [facility] Glucose comment 2 RN/MD Notified [facility] Blood 11/03/2024 7:17 AM CDT 11/03/2024 7:17 AM CDT Juan J Heller MD LAB POCT ORDERABLES - DEVICE Final Result Performing Organization Address [facility]/ZIP Co de Phone Number [address] [employer] [address] * (ABNORMAL) eGFR (11/03/2024 2:33 AM CDT) [facility] eGFR 10(L) >=60 mL/min/1. 73 [...] interpretive data was last reviewed 2021. Blood 11/03/2024 2:3 3 AM CDT 11/03/2024 3:06 AM CDT us Brad Smallwood NP LAB BLOOD ORDERABLES Fin al Result Performing Organization Address City/[facility]/ZIP Co de Phone Number [address] [employer] [address] * Differential, auto (11/03/2024 2:33 AM CDT) Pathologist [facility] [place] Neutrophil abs 5.20 1.50 - 6.50 K/cumm Imm gran abs 0.03 0.00 - 0.10 K/cumm [facility] Lymphocyte abs 2.47 0.80 - 3.30 K/cumm [facility] Monocyte abs 0.66 0.20 - 0.80 K/cumm [facility] Eosinophil abs 0.14 0.00 - 0.50 K/cumm [facility] Basophil abs 0.04 0.00 - 0.10 K/cumm [facility] Neutrophil pct 60.9 % [facility] Comment: Interpretive [...] was last revised on 2017. Lymphocyte pct 28.9 % [facility] Comment: Interpretive Data Percent cell count reference ranges are not reported, since discordance with absolute values may lead to misinterpretation of CBC data. Current Interpretive Data was last revised on 2017. Monocyte pct 7.7 % [facility] Comment: Interpretive Data Percent cell count reference ranges are not reported, since discordance with absolute values may lead to misinterpretation of CBC data. Current Interpretive Data was last revised on 2017. Eosinophil pct 1.6 % [facility] Comment: Interpretive Data Percent cell count reference ranges are not reported, since discordance with absolute values may lead to misinterpretation of CBC data. Current Interpretive Data was last revised on 2017. Basophil pct 0.5 % [facility] Comment: Interpretive Data Percent cell count reference ranges are not reported, since discordance with absolute values may lead to misinterpretation of CBC data. Current Interpretive Data was last revised on 2017. Blood 11/03/2024 2:33 AM CDT 11/03/2024 3:03 AM CDT us Brad Taberstormmichael Smallwood CHECKERER HAND LAB BLOOD ORDERABLES Fin al Result Performing Organization Address [facility] de Phone Number [address] [address] * (ABNORMAL) CBC with auto differential (11/03/2024 2:33 AM CDT) [facility] WBC 8.54 3.80 - 9.90 K/cumm Hgb 7.4(L) 11.9 - 15.5 g/dL [facility] Hct 22.8(L) 35.6 - 45.5 % [facility] Plt 195 150 - 400 K/cumm [facility] MPV 10.8 9.1 - 12.3 fL [facility] RBC 2.25(L) 3.90 - 5.20 M/cumm [facility] MCV 101.3(H) 81.3 - 96.4 fL [facility] MCH 32.9 27.1 - 33.3 pg [facility] MCHC 32.5 32.3 - 35.7 g/dL [facility] RDW CV 13.3 11.1 - 14.9 % [facility] RDW SD 49.3(H) 35.7 - 48.1 fL [facility] NRBC abs 0.00 0.00 - 0.01 K/cumm [facility] Blood 11/03/2024 2:33 AM CDT 11/03/2024 3:03 AM CDT us Brad Sebastien Smallwood CHECKERER HAND LAB BLOOD ORDERABLES Fin al Result Performing Organization Address [facility] Co de Phone Number [address] [address] * (ABNORMAL) Basic metabolic panel (11/03/2024 2:33 AM CDT) [facility] Sodium 135 135 - 145 mmol/L Potassium, pl 4.1 3.3 - 4.9 mmol/L [facility] Chloride 95(L) 97 - 110 mmol/L [facility] CO2 27 22 - 32 mmol/L [facility] Anion gap 13 2 - 15 mmol/L [facility] BUN 38(H) 6 - 25 mg/dL [facility] Creatinine 4.56(H) 0.60 - 1.10 mg/dL [facility] Glucose 131 70 - 199 mg/dL [facility] Comment: Interpretive Data Fasting [...] 2022. Calcium 8.0(L) 8.5 - 10.3 mg/dL [facility] Blood 11/03/2024 2:33 AM CDT 11/03/2024 3:03 AM CDT Brad Smallwood NP LAB BLOOD ORDERABLES Fin al Result Performing Organization Address [facility]/ZIP Co de Phone Number [address] [employer] [address] * POCT glucose (11/02/2024 9:40 PM CDT) Glucose, POC 157 70 - 199 mg/dL Glucose comment 1 RN/MD Notified [facility] Blood 11/02/2024 9:40 PM CDT 11/02/2024 9:40 PM CDT Juan J Heller MD LAB POCT ORDERABLES - DEVICE Final Result Performing Organization Address [facility] Co de Phone Number [address] [employer] [place] [address] * Ammonia (11/02/2024 6:56 PM CDT) Ammonia 24 <=50 mcmol/L Comment: Please note on 2023 the unit of measure changed from mcg/dL to mcmol/L. Current Interpretive Data was last revised on 2023. Blood 11/02/2024 6:56 PM CDT 11/02/2024 7:04 PM CDT Juan J Heller MD LAB BLOOD ORDERABLE S Final Result [facility] [address] [facility] [place] [address] * CT Head WO Contrast (11/02/2024 6:31 PM CDT) Anatomical Region Laterality Modality Head and Neck N/A Computed Tomogra phy 11/02/2024 7:16 PM CDT Narrative 11/02/2024 7:18 PM CDT EXAM DESCRIPTION: CT HEAD WO CONTRAST REASON FOR STUDY: Altered mental status, nontraumatic (Ped 0-17y) Altered mental status, nontraumatic TECHNIQUE: Axial images acquired through the brain without intravenous contrast. Images stored on PACS. Automated exposure control was used as a dose optimization technique for this examination. COMPARISON: 11/01/2024 FINDINGS: BRAIN: No hemorrhage, edema or mass effect. No recent infarct. Periventricular microvascular white matter ischemic change. 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 EXTRA-AXIAL SPACES: No fluid collections. No masses. CALVARIUM: No fracture. SINUSES/MASTOIDS: No fluid or mucosal thickening. ORBITS: No significant abnormality. OTHER: No other significant abnormality. IMPRESSION: No acute intracranial findings. THIS IS AN ELECTRONICALLY VERIFIED FINAL REPORT 11/02/2024 7:18 PM - Electronically signed by Salvador Bronson M.D. KT T: Report ID: [id number] Reading Location: [id number] Procedure Note Salvador Bronson MD - 11/02/2024 EXAM DESCRIPTION: CT HEAD WO CONTRAST REASON FOR STUDY: Altered mental status, nontraumatic (Ped 0-17y) Altered mental status, nontraumatic TECHNIQUE: Axial images acquired through the brain without intravenous contrast. Images stored on PACS. Automated exposure control was used asa dose optimization technique for this examination. COMPARISON: 11/01/2024 FINDINGS: BRAIN: No hemorrhage, edema or mass effect. No recent infarct. Periventricular microvascular white matter ischemic change. 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 EXTRA-AXIAL SPACES: No fluid collections. No masses. CALVARIUM: No fracture. SINUSES/MASTOIDS: No fluid or mucosal thickening. ORBITS: No significant abnormality. OTHER: No other significant abnormality. IMPRESSION: No acute intracranial findings. THIS IS AN ELECTRONICALLY VERIFIED FINAL REPORT 11/02/2024 7:18 PM - Electronically signed by Salvador Bronson M.D. KT T: Report ID: [id number] Reading Location: [id number] Juan J Heller MD IMG CT PROCEDURES F inal Result * (ABNORMAL) POC Blood Gas and Chemistries, Arterial - (11/02/2024 6:17 PM CDT) pH, art POC 7.45 7.35 - 7.45 pCO2, art POC 40 35 - 45 mmHg [facility] pO2, art POC 95 83 - 108 mmHg [facility] HCO3, art (Calc) POC 28 20 - 30 mmol/L [facility] Base excess, art POC 4 mmol/L [facility] Comment: Interpretive Data No reference range established. Current interpretive data was last revised 2020. O2 Sat, art (Calc) POC 95 94 - 98 % [facility] Oxy Hgb, art POC 95.4(H) 90.0 - 95.0 % [facility] Met Hgb, art POC 0.0 0.0 - 1.9 % [facility] Carboxy Hgb, art POC 0.0 0.0 - 2.9 % [facility] Hemoglobin, art POC 8.8(L) 11.9 - 15.5 g/dL [facility] Blood 11/02/2024 6:17 PM CDT 11/02/2024 6:17 PM CDT Juan J Heller MD LAB POCT ORDERABLES - DEVICE Final Result Performing Organization Address [facility] Co de Phone Number CARL[address] ENRI[address] [place] [address] * POCT glucose (11/02/2024 5:13 PM CDT) Glucose, POC 150 70 - 199 mg/dL Glucose comment 1 RN/MD Notified [facility] Blood 11/02/2024 5:13 PM CDT 11/02/2024 5:13 PM CDT Juan J Heller MD LAB POCT ORDERABLES - DEVICE Final Result Performing Organization Address [facility] Co de Phone Number CAR[address] EN[address] [place] [address] * POCT glucose (11/02/2024 12:32 PM CDT) Glucose, POC 173 70 - 199 mg/dL Glucose comment 1 RN/MD Notified [facility] Blood 11/02/2024 12:3 2 PM CDT 11/02/2024 12:32 PM CDT us Juan J Heller MD LAB POCT ORDERABLES - DEVICE Final Result Performing Organization Address [facility] Co de Phone Number [address] [place] [address] * POCT glucose (11/02/2024 7:50 AM CDT) Glucose, POC 184 70 - 199 mg/dL Glucose comment 1 RN/ Notified [facility] Blood 11/02/2024 7:50 AM CDT 11/02/2024 7:50 AM CDT Juan J Heller MD LAB POCT ORDERABLES - DEVICE Final Result Performing Organization Address City/[facility] Co de Phone Number [address] [place] [address] * Hepatitis B surface antibody (immune status) Blood (11/02/2024 7:14 AM CDT) [facility] HBsAb (immune status) Reactive Comment: Interpretive Data [...] revised on 19. HBsAb (immune status) index 628.0 mIUnits/m L [facility] Blood 11/02/2024 7:14 AM CDT 11/02/2024 7:32 AM CDT Rohan Funes MD LAB MICROBIOLOGY - GENERAL ORDERABLES Final Result Performing Organization Address [facility] Co de Phone Number [address] [address] * Hepatitis B Surface Antigen Blood (11/02/2024 7:14 AM CDT) [facility] HepBsAg Nonreactive Nonreactive Blood 11/02/2024 7:14 AM CDT 11/02/2024 7:32 AM CDT Rohan Funes MD LAB MICROBIOLOGY - GENERAL ORDERABLES Final Result Performing Organization Address [facility] Co de Phone Number [address] [address] * (ABNORMAL) eGFR (11/02/2024 3:48 AM CDT) [facility] eGFR 8(L) >=60 mL/min/1. 73 m2 Comment: [...] interpretive data was last reviewed 2021. Blood 11/02/2024 3:48 AM CDT 11/02/2024 4:01 AM CDT us Brad Sebastien Smallwood CHECKERER HAND LAB BLOOD ORDERABLES Fin al Result [facility] [place] [address] * Differential, auto (11/02/2024 3:48 AM CDT) Pathologist [facility] Neutrophil abs 5.44 1.50 - 6.50 K/cumm Imm gran abs 0.03 0.00 - 0.10 K/cumm [facility] Lymphocyte abs 2.16 0.80 - 3.30 K/cumm [facility] Monocyte abs 0.62 0.20 - 0.80 K/cumm [facility] Eosinophil abs 0.12 0.00 - 0.50 K/cumm [facility] Basophil abs 0.02 0.00 - 0.10 K/cumm [facility] Neutrophil pct 64.9 % [facility] Comment: Interpretive [...] was last revised on 2017. Lymphocyte pct 25.7 % [facility] Comment: Interpretive Data Percent cell count reference ranges are not reported, since discordance with absolute values may lead to misinterpretation of CBC data. Current Interpretive Data was last revised on 2017. Monocyte pct 7.4 % [facility] Comment: Interpretive Data Percent cell count reference ranges are not reported, since discordance with absolute values may lead to misinterpretation of CBC data. Current Interpretive Data was last revised on 2017. Eosinophil pct 1.4 % [facility] Comment: Interpretive Data Percent cell count reference ranges are not reported, since discordance with absolute values may lead to misinterpretation of CBC data. Current Interpretive Data was last revised on 2017. Basophil pct 0.2 % [facility] Comment: Interpretive Data Percent cell count reference ranges are not reported, since discordance with absolute values may lead to misinterpretation of CBC data. Current Interpretive Data was last revised on 2017. Blood 11/02/2024 3:48 AM CDT 11/02/2024 4:01 AM CDT us Brad Sebastien Smallwood CHECKERER HAND LAB BLOOD ORDERABLES Fin al Result [facility] [address] [facility] [place] [address] * (ABNORMAL) CBC with auto differential (11/02/2024 3:48 AM CDT) WBC 8.39 3.80 - 9.90 K/cumm Hgb 7.2(L) 11.9 - 15.5 g/dL [facility] Hct 22.3(L) 35.6 - 45.5 % [facility] Plt 186 150 - 400 K/cumm [facility] MPV 10.9 9.1 - 12.3 fL [facility] RBC 2.20(L) 3.90 - 5.20 M/cumm [facility] MCV 101.4(H) 81.3 - 96.4 fL [facility] MCH 32.7 27.1 - 33.3 pg [facility] MCHC 32.3 32.3 - 35.7 g/dL [facility] RDW CV 13.5 11.1 - 14.9 % [facility] RDW SD 49.7(H) 35.7 - 48.1 fL [facility] NRBC abs 0.00 0.00 - 0.01 K/cumm [facility] Blood 11/02/2024 3:48 AM CDT 11/02/2024 4:01 AM CDT Brad [facility] CHECKERER HAND LAB BLOOD ORDERABLES Fin al Result Performing Organization Address City/[facility]/ZIP Co de Phone Number [address] [address] * Folate (11/02/2024 3:48 AM CDT) [facility] Folic acid 7.0 >=5.0 ng/mL Blood 11/02/2024 3:48 AM CDT 11/02/2024 4:01 AM CDT [facility] CHECKERER HAND LAB BLOOD ORDERABLES Fin al Result Performing Organization Address City/[facility] Co de Phone Number [address] [place] [address] * (ABNORMAL) Basic metabolic panel (11/02/2024 3:48 AM CDT) [facility] Sodium 135 135 - 145 mmol/L Potassium, pl 4.6 3.3 - 4.9 mmol/L [facility] Chloride 99 97 - 110 mmol/L [facility] CO2 24 22 - 32 mmol/L [facility] Anion gap 12 2 - 15 mmol/L [facility] BUN 64(H) 6 - 25 mg/dL [facility] Creatinine 5.43(H) 0.60 - 1.10 mg/dL [facility] Glucose 227(H) 70 - 199 mg/dL [facility] Comment: Interpretive Data Fasting [...] 2022. Calcium 9.0 8.5 - 10.3 mg/dL [facility] Blood 11/02/2024 3:48 AM CDT 11/02/2024 4:01 AM CDT [facility] LAB BLOOD ORDERABLES Fin al Result Performing Organization Address [facility] Co de Phone Number [address] [place] [address] * Lactate (11/01/2024 10:05 PM CDT) Pathologist [facility] Lactate 1.4 0.7 - 2.0 mmol/L Blood 11/01/2024 10:0 5 PM CDT 11/01/2024 10:15 PM CDT [facility] LAB BLOOD ORDERABLES Fin al Result Performing Organization Address [facility] de Phone Number [address] [address] * (ABNORMAL) Erythrocyte sedimentation rate (11/01/2024 10:05 PM CDT) Pathologist [facility] Erythrocyte sedimentation rate 43(H) 1 - 30 mm/hr Blood 11/01/2024 10:0 5 PM CDT 11/01/2024 10:15 PM CDT [facility] LAB BLOOD ORDERABLES Fin al Result Performing Organization Address [facility] Co de Phone Number [address] [place] [address] * CRP (acute phase) (11/01/2024 10:05 PM CDT) [facility] CRP 3.6 <=10.0 mg/L Blood 11/01/2024 10:0 5 PM CDT 11/01/2024 10:15 PM CDT Brad Axentraernero [facility] CHECKERER HAND LAB BLOOD ORDERABLES Fin al Result Performing Organization Address City/[facility] Co de Phone Number [address] [place] [address] * Phosphorus (11/01/2024 10:05 PM CDT) [facility] Phosphorus, pl 4.3 2.3 - 4.5 mg/dL Blood 11/01/2024 10:0 5 PM CDT 11/01/2024 10:15 PM CDT [facility] LAB BLOOD ORDERABLES Fin al Result Performing Organization Address [facility] de Phone Number [address] [place] [address] * Magnesium (11/01/2024 10:05 PM CDT) [facility] Magnesium 1.5 1.4 - 2.5 mg/dL Blood 11/01/2024 10:0 5 PM CDT 11/01/2024 10:15 PM CDT [facility] CHECKERER HAND LAB BLOOD ORDERABLES Fin al Result Performing Organization Address [facility] de Phone Number [address] [place] [address] * (ABNORMAL) Hemoglobin A1c (11/01/2024 10:05 PM CDT) [facility] Hgb A1C 7.1(H) 4.0 - 5.6 % Estimated Average Glucose 157 mg/dL [facility] Comment: The ADA recommends reporting an estimated Average Glucose (eAG) with all Hemoglobin A1c results using the equation derived from a study of 507 normal and diabetic adults. Minority populations were underrepresented and children were not included. (Diabetes Care 31:4929-0583, 2008). The eAG is not equivalent to a fasting glucose. Blood 11/01/2024 10:0 5 PM CDT 11/01/2024 10:15 PM CDT [facility] Tabernero [facility] CHECKERER HAND LAB BLOOD ORDERABLES Fin al Result Performing Organization Address City/[facility] Co de Phone Number [address] [place] [address] * Vitamin B12 (11/01/2024 10:05 PM CDT) Pathologist [facility] Vitamin B12 584 230 - 1,250 pg/mL Blood 11/01/2024 10:0 5 PM CDT 11/01/2024 10:15 PM CDT [facility] LAB BLOOD ORDERABLES Fin al Result Performing Organization Address [facility] Co de Phone Number [address] [address] * (ABNORMAL) Lipid panel (11/01/2024 10:05 PM CDT) Pathologist [facility] Cholesterol 98 30 - 199 mg/dL Comment: Interpretive Data [...] Data was last revised on 2018. Triglycerides 147 <=149 mg/dL [facility] Comment: Interpretive Data Ages < or [...] Data was last revised on 2018. HDL 38(L) >=40 mg/dL [facility] Comment: Interpretive Data Ages [...] was last revised on 2018. LDL, calculated 35 <=129 mg/dL [facility] Comment: Interpretive Data Ages [...] NCEP Expert Panel. Circulation 2004;110:227 3. Sanket Riggins. SAVITA Cardiol. 2020 October 20;5(5):540-548. doi: 10.1001/jamacardio.2020.0013 Current Interpretive Data was last revised on 2024. Non-HDL Cholesterol 60 mg/dL [facility] Comment: Interpretive Data Ages < [...] last revised on 2018. Chol/HDL ratio 3 [facility] Blood 11/01/2024 10:0 5 PM CDT 11/01/2024 10:15 PM CDT us Brad Smallwood NP LAB BLOOD ORDERABLES Fin al Result Performing Organization Address [facility] Co de Phone Number [address] [place] [address] * (ABNORMAL) POCT glucose (11/01/2024 9:59 PM CDT) Glucose, POC 217(H) 70 - 199 mg/dL Glucose comment 1 Use This Result [facility] Glucose comment 2 RN/MD Notified [facility] Blood 11/01/2024 9:59 PM CDT 11/01/2024 9:59 PM CDT Des Lopez MD LAB POCT ORDERABLES - DEVICE F inal Result Performing Organization Address [facility] Co de Phone Number [address] [place] [address] * (ABNORMAL) Urinalysis reflex to microscopic and culture Urine (11/01/2024 7:23 PM CDT) Color, ur Straw Yellow Clarity, ur Clear Clear [facility] Specific gravity, ur 1.007 1.003 - 1.030 [facility] pH, urine 7.5 [facility] Comment: Interpretive Data U rine pH is affected by diet, medications, systemic acid-base disturbances, and renal tubular function. pH may affect urinary stone formation. For example, urine pH below 6.0 may help reduce the tendency for calcium phosphate stones and pH greater than 6.0 may reduce the tendency for uric acid stone formation. Source: [facility] Current Interpretive Data was last revised on 2017 Protein, ur ql 1+(A) Negative [facility] Glucose, ur ql 3+(A) Negative [facility] Ketones, ur Negative Negative [facility] Bilirubin, ur Negative Negative [facility] Blood, ur Negative Negative [facility] Urobilinogen, ur <2.0 <2.0 mg/dL [facility] Nitrite, ur Negative Negative [facility] Leukocyte esterase, ur 4+(A) Negative [facility] UA reflex comment Reflex to microscopic UA will be performed. [facility] Urine 11/01/2024 7:23 PM CDT 11/01/2024 7:37 PM CDT us Tahmina Palencia MD LAB MICROBIOLOGY - GEN ERAL ORDERABLES Final Result Performing Organization Address [facility] Co de Phone Number [address] [address] * (ABNORMAL) Urinalysis, microscopic only (11/01/2024 7:23 PM CDT) WBC, ur >50(A) 0 - 5 /HPF RBC, ur 0-2 0 - 2 /HPF [facility] Epithelial cells, squamous, ur 1-5 0 - 5 /HPF [facility] Culture Reflex Comment Reflex to urine culture will be performed. [facility] Urine 11/01/2024 7:23 PM CDT 11/01/2024 7:37 PM CDT Tahmina Palencia MD LAB URINE ORDERABLES F inal Result Performing Organization Address [facility] Co de Phone Number [address] [place] [address] * (ABNORMAL) Urine culture Urine (11/01/2024 7:23 PM CDT) Report Final Report: Greater than or equal to 100,000 colonies/mL of Proteus mirabilis Plus growth of clinically insignificant bacterial shruti. (.) Comment:Testing performed by : [facility], [address] [place] [address] Organism PROTEUS MIRABILIS CARLOS ENRIQUESTORM Organism PLUS GROWTH OF CLINICALLY INSIGNIFICANT SHRUTI. [facility] Urine 11/01/2024 7:23 PM CDT 11/02/2024 12:58 AM CDT Narrative NILSA - 11/04/2024 10:48 AM CDT Urine culture reflexed based upon urinalysis results. Testing performed by [facility] Microbiology Laboratory ([phone]) Organism Antibiotic Method Susceptibility Proteus mirabilis Ampicillin INTERPRETATION Susceptible Proteus mirabilis Cefazolin INTERPRETATION Susceptible Proteus mirabilis Nitrofurantoin INTERPRETATION Resistant Proteus mirabilis Gentamicin INTERPRETATION Susceptible Proteus mirabilis Trimethoprim with Sulfamethoxazole I NTERPRETATION Susceptible Proteus mirabilis Meropenem INTERPRETATION Susceptible Proteus mirabilis Cefepime INTERPRETATION Susceptible Proteus mirabilis Ciprofloxacin INTERPRETATION Susceptible Proteus mirabilis Ceftazidime INTERPRETATION Susceptible Proteus mirabilis Ceftriaxone INTERPRETATION Susceptible Proteus mirabilis Piperacillin/Tazobactam INTERPRETATI ON Susceptible Proteus mirabilis Cephalexin INTERPRETATION Susceptible Proteus mirabilis Cefuroxime-axetil INTERPRETATION Susceptible Proteus mirabilis Cefdinir INTERPRETATION Susceptible us Tahmina Palencia MD LAB MICROBIOLOGY - GEN ERAL ORDERABLES Final Result [facility] [address] [facility] Department of Laboratories [place], [place] [id number] * CT Chest Abdomen Pelvis W Contrast (11/01/2024 6:16 PM CDT) Anatomical Region Laterality Modality Body N/A Computed Tomogra phy 11/01/2024 7:21 PM CDT Narrative 11/01/2024 7:29 PM CDT EXAM DESCRIPTION: CT CHEST ABDOMEN PELVIS W CONTRAST REASON FOR STUDY: sob; concern for abd abscess; Pt to ED c/o increased weakness and SOB with exertion x1 week. Daughter is with pt who states she also was c/o headache and some dizziness last night. Denies fever, cough, congestion. Denies numbness or tingling in extremities. Hx CHF, HTN, dementia, DM, ESRD-HD- pt gets home hemodialysis every other day, last treatment was on Thursday and took 1.1L off. Wheelchair to triage. TECHNIQUE: CT scan of the chest, abdomen, and pelvis performed with intravenous and without oral contrast using helical scanning technique with dynamic intravenous contrast injection. Reconstructed coronal and sagittal MPR images reviewed. All images stored on PACS. Automated exposure control was used as a dose optimization technique for this examination. CONTRAST TYPE/DOSE: 100mL of IOVERSOL 350 MG IODINE/ML INTRAVENOUS SYRINGE injected via intravenous COMPARISON: 01/29/2024 FINDINGS: CHEST LUNGS: No nodules or masses. No pneumonia. PLEURA: No effusion. No pneumothorax. MEDIASTINUM/ERICA: No identified masses or abnormal nodes. HEART: Heart size is normal with no pericardial effusion. Coronary artery calcification. VASCULATURE CHEST: No thoracic aortic aneurysm or dissection. AXILLA: No adenopathy. CHEST WALL: No masses. No subcutaneous air. HARDWARE/LINES/TUBES: None. MUSCULOSKELETAL CHEST: No significant abnormality. ABDOMEN/PELVIS LIVER: Normal size. No identified cystic or solid masses. GALLBLADDER: No stones identified. No wall thickening or inflammatory changes. BILE DUCTS: No intrahepatic or extrahepatic ductal dilatation. SPLEEN: Normal size. No focal lesions. PANCREAS: No identified cystic or solid masses. No significant calcifications. No adjacent inflammation or peripancreatic fluid collections. Pancreatic duct not dilated. ADRENALS: Normal. KIDNEYS/URINARY TRACT: No identified significant cystic or solid masses. No visualized stones. No hydronephrosis or hydroureter. Symmetric enhancement. Urinary bladder is unremarkable. GI: No dilated bowel loops. No obvious wall thickening. Normal appendix. No significant diverticular disease. PERITONEUM: No ascites or free air. RETROPERITONEUM: No mass or adenopathy. REPRODUCTIVE: No significant abnormality. VASCULATURE ABDOMEN: No abdominal aortic aneurysm. MUSCULOSKELETAL ABDOMEN PELVIS: No acute finding. OTHER: No significant abnormality. IMPRESSION: No acute abnormality. THIS IS AN ELECTRONICALLY VERIFIED FINAL REPORT 11/01/2024 7:29 PM - Electronically signed by Salvador Bronson M.D. KT T: Report ID: [id number] Reading Location: [id number] Procedure Note Salvador Bronson MD - 11/01/2024 EXAM DESCRIPTION: CT CHEST ABDOMEN PELVIS W CONTRAST REASON FOR STUDY: sob; concern for abd abscess; Pt to ED c/o increased weakness and SOB with exertion x1 week. Daughteris with pt who states she also was c/o headache and some dizziness lastnight. Denies fever, cough, congestion. Denies numbness or tingling inextremities. Hx CHF, HTN, dementia, DM, ESRD-HD- pt gets home hemodialysis every other day, last treatment was on Thursday and took 1.1L off. Wheelchair totriage. TECHNIQUE: CT scan of the chest, abdomen, and pelvis performed with intravenous and without oral contrast using helical scanning techniquewith dynamic intravenous contrast injection. Reconstructed coronal and sagittalMPR images reviewed. All images stored on PACS. Automated exposure control was used as a dose optimization technique for this examination. CONTRAST TYPE/DOSE: 100mL of IOVERSOL 350 MG IODINE/ML INTRAVENOUS SYRINGE injected via intravenous COMPARISON: 01/29/2024 FINDINGS: CHEST LUNGS: No nodules or masses. No pneumonia. PLEURA: No effusion. No pneumothorax. MEDIASTINUM/ERICA: No identified masses or abnormal nodes. HEART: Heart size is normal with no pericardial effusion. Coronaryartery calcification. VASCULATURE CHEST: No thoracic aortic aneurysm or dissection. AXILLA: No adenopathy. CHEST WALL: No masses. No subcutaneous air. HARDWARE/LINES/TUBES: None. MUSCULOSKELETAL CHEST: No significant abnormality. ABDOMEN/PELVIS LIVER: Normal size. No identified cystic or solid masses. GALLBLADDER: No stones identified. No wall thickening or inflammatory changes. BILE DUCTS: No intrahepatic or extrahepatic ductal dilatation. SPLEEN: Normal size. No focal lesions. PANCREAS: No identified cystic or solid masses. No significant calcifications. No adjacent inflammation or peripancreatic fluidcollections. Pancreatic duct not dilated. ADRENALS: Normal. KIDNEYS/URINARY TRACT: No identified significant cystic or solid masses.No visualized stones. No hydronephrosis or hydroureter. Symmetricenhancement. Urinary bladder is unremarkable. GI: No dilated bowel loops. No obvious wall thickening. Normalappendix. No significant diverticular disease. PERITONEUM: No ascites or free air. RETROPERITONEUM: No mass or adenopathy. REPRODUCTIVE: No significant abnormality. VASCULATURE ABDOMEN: No abdominal aortic aneurysm. MUSCULOSKELETAL ABDOMEN PELVIS: No acute finding. OTHER: No significant abnormality. IMPRESSION: No acute abnormality. THIS IS AN ELECTRONICALLY VERIFIED FINAL REPORT 11/01/2024 7:29 PM - Electronically signed by Salvador Bronson M.D. KT T: Report ID: [id number] Reading Location: [place] [id number] Tahmina Palencia MD IMG CT PROCEDURES Blessing [facility] Result * CTA Head Neck W WO Contrast (11/01/2024 6:15 PM CDT) Anatomical Region Laterality Modality Head and Neck N/A Computed Tomogra phy 11/01/2024 7:25 PM CDT Narrative 11/01/2024 7:32 PM CDT EXAM DESCRIPTION: CTA HEAD NECK W WO CONTRAST REASON FOR STUDY: Acute unspecified type weakness (without provision of neurologic deficits) and dyspnea on exertion for 1 week. Additional complaints of headache and dizziness last night. No provided history of trauma or inciting and/or aggravating events. History of dementia, CHF, hypertension, diabetes, and end-stage renal disease on hemodialysis with last dialysis 3 days ago. No provided surgical history. TECHNIQUE: Axial images were first obtained through the brain without contrast. Axial dynamic scanning technique with dynamic contrast enhancement through the intracranial and extracranial carotid and vertebral arteries. Multiplanar reconstruction. All stenosis measurements are based on NASCET criteria. 3D MIP images rendered on scanning unit and reviewed at time of interpretation. Automated exposure control was used as a dose optimization technique for this examination. CONTRAST TYPE/DOSE: 100 mL Optiray 350 injected via peripheral IV site without reported incident. COMPARISON: CT head without contrast earlier same day; CT head/maxillofacial bones/cervical spine without contrast 07/12/2024. FINDINGS: BRAIN: No acute intra-axial hemorrhage. No edema, mass effect, midline shift, or herniation. No evidence of acute territorial ischemia or infarct. There is periventricular-subcortical hypoattenuating white matter disease, nonspecific, though likely secondary to chronic microvascular ischemia. EXTRA-AXIAL SPACES: No extra-axial fluid collections. No unenhanced CT evidence of extra-axial mass. There is cerebral and cerebellar volume loss. There is intracranial calcific atherosclerotic disease. CALVARIUM: Diffuse osteopenia. No acute calvarial fracture. Hyperostosis frontalis interna. SINUSES/MASTOIDS: Visualized paranasal sinuses clear. Mastoid air cells well-developed and well aerated. ORBITS: No acute abnormality. [place] ocular lenses replaced bilaterally. OTHER: No other significant abnormality. INTRACRANIAL VESSELS [place]: The anterior, middle, posterior cerebral arteries are all patent. No focal stenosis. No aneurysm. POSTERIOR CIRCULATION: The distal vertebral arteries are patent as is the basilar artery. No aneurysm. BRAIN: No gross evidence of enhancing intracranial lesions. CAROTID CTA RIGHT CAROTIDS: No occlusion, hemodynamically significant stenosis, or evidence of dissection of the right carotid arterial system. LEFT CAROTIDS: No occlusion or evidence of dissection of the left carotid arterial system, noting calcific atherosclerosis at the bifurcation/bulb produces approximately 60% stenosis of the left ICA. LEFT VERTEBRAL: Patent without evidence of stenosis or dissection. RIGHT VERTEBRAL: Patent without evidence of stenosis or dissection. AORTIC ARCH: No acute abnormality. Patent subclavian arteries. NECK SOFT TISSUE: No acute abnormality. No thyroid nodule greater than 1 cm. INCLUDED LUNGS: No acute abnormality. OTHER: No other significant finding. IMPRESSION: 1. No acute intracranial process. 2. No occlusion, focal stenosis, or aneurysm of the intracranial arterial vasculature. 3. Calcific atherosclerosis of the left bifurcation/bulb produces approximately 60% stenosis of the left ICA. 4. Otherwise, no occlusion, hemodynamically significant stenosis, or evidence of dissection of the cervical arterial vasculature. THIS IS AN ELECTRONICALLY VERIFIED FINAL REPORT 11/01/2024 7:32 PM - Electronically signed by Redd ARMAS T: Report ID: [id number] Reading Location: [id number] Procedure Note Redd Hendrickson MD - 11/01/2024 EXAM DESCRIPTION: CTA HEAD NECK W WO CONTRAST REASON FOR STUDY: Acute unspecified type weakness (without provision of neurologic deficits) and dyspnea on exertion for 1 week. Additional complaints of headache and dizziness last night. No provided history of trauma or inciting and/or aggravating events. History of dementia, CHF, hypertension, diabetes, and end-stage renal disease on hemodialysis withlast dialysis 3 days ago. No provided surgical history. TECHNIQUE: Axial images were first obtained through the brain without contrast. Axial dynamic scanning technique with dynamic contrast enhancement throughthe intracranial and extracranial carotid and vertebral arteries. Multiplanar reconstruction. All stenosis measurements are based on NASCET criteria. 3D MIP images rendered on scanning unit and reviewed at time of interpretation. Automated exposure control was used as a dose optimization technique forthis examination. CONTRAST TYPE/DOSE: 100 mL Optiray 350 injected via peripheral IVsite without reported incident. COMPARISON: CT head without contrast earlier same day; CThead/maxillofacial bones/cervical spine without contrast 07/12/2024. FINDINGS: BRAIN: No acute intra-axial hemorrhage. No edema, mass effect, midlineshift, or herniation. No evidence of acute territorial ischemia or infarct.There is periventricular-subcortical hypoattenuating white matter disease, nonspecific, though likely secondary to chronic microvascular ischemia. EXTRA-AXIAL SPACES: No extra-axial fluid collections. No unenhanced CT evidence of extra-axial mass. There is cerebral and cerebellar volumeloss. There is intracranial calcific atherosclerotic disease. CALVARIUM: Diffuse osteopenia. No acute calvarial fracture.Hyperostosis frontalis interna. SINUSES/MASTOIDS: Visualized paranasal sinuses clear. [place] air cells well-developed and well aerated. ORBITS: No acute abnormality. [place] ocular lenses replaced bilaterally. OTHER: No other significant abnormality. INTRACRANIAL VESSELS [place]: The anterior, middle, posterior cerebral arteries areall patent. No focal stenosis. No aneurysm. POSTERIOR CIRCULATION: The distal vertebral arteries are patent as isthe basilar artery. No aneurysm. BRAIN: No gross evidence of enhancing intracranial lesions. CAROTID CTA RIGHT CAROTIDS: No occlusion, hemodynamically significant stenosis, or evidence of dissection of the right carotid arterial system. LEFT CAROTIDS: No occlusion or evidence of dissection of the leftcarotid arterial system, noting calcific atherosclerosis at the bifurcation/bulb produces approximately 60% stenosis of the left ICA. LEFT VERTEBRAL: Patent without evidence of stenosis or dissection. RIGHT VERTEBRAL: Patent without evidence of stenosis or dissection. AORTIC ARCH: No acute abnormality. Patent subclavian arteries. NECK SOFT TISSUE: No acute abnormality. No thyroid nodule greater than1 cm. INCLUDED LUNGS: No acute abnormality. OTHER: No other significant finding. IMPRESSION: 1. No acute intracranial process. 2. No occlusion, focal stenosis, or aneurysm of the intracranialarterial vasculature. 3. Calcific atherosclerosis of the left bifurcation/bulb produces approximately 60% stenosis of the left ICA. 4. Otherwise, no occlusion, hemodynamically significant stenosis, or evidence of dissection of the cervical arterial vasculature. THIS IS AN ELECTRONICALLY VERIFIED FINAL REPORT 11/01/2024 7:32 PM - Electronically signed by Redd Hendrickson M.D. CHANDA T: Report ID: [id number] Reading Location: [place] [address] us Tahmina Palencia MD IMG CT PROCEDURES [facility] Result * (ABNORMAL) Troponin T high-sensitivity 2-hour (11/01/2024 4:34 PM CDT) Trop T hs 53(H) <=14 ng/L Comment: Interpretive Data For further hscTnT resources including the diagnostic algorithm and an aid in interpretation, copy and paste this link: https://nrl.testcatalog.org/show/hsTrop Current Interpretive Data last revised 2020. Trop T hs delta -4 ng/L NILSA RODRIGES Trop T hs interp Insignificant NILSA Blood 11/01/2024 4:34 PM CDT 11/01/2024 4:45 PM CDT us Markie Sofia MD LAB BLOOD ORDERABLES F inal Result [facility] [address] [facility] [place] [address] * CT Head WO Contrast (11/01/2024 2:37 PM CDT) Anatomical Region Laterality Modality Head and Neck N/A Computed Tomogra phy 11/01/2024 3:01 PM CDT Narrative 11/01/2024 3:04 PM CDT EXAM DESCRIPTION: CT HEAD WO CONTRAST REASON FOR STUDY: Headache, new onset (Age >= 51y), dizziness, weakness Pt to ED c/o increased weakness and SOB with exertion x1 week. Daughter is with pt who states she also was c/o headache and some dizziness last night. Denies fever, cough, congestion. Denies numbness or tingling in extremities. Hx CHF, HTN, dementia, DM, ESRD-HD- pt gets home hemodialysis every other day, last treatment was on Thursday and took 1.1L off. TECHNIQUE: Axial images acquired through the brain without intravenous contrast. Images stored on PACS. Automated exposure control was used as a dose optimization technique for this examination. COMPARISON: CT head 07/12/2024 FINDINGS: BRAIN: No hemorrhage, edema or mass effect. No recent infarct. 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 There is moderate chronic microangiopathy. There is age-appropriate generalized atrophy. No hydrocephalus. EXTRA-AXIAL SPACES: No fluid collections. No masses. CALVARIUM: No fracture. There is hyperostosis frontalis interna. SINUSES/MASTOIDS: No fluid or mucosal thickening. ORBITS: No significant abnormality. OTHER: No other significant abnormality. IMPRESSION: No acute intracranial findings. Chronic findings as above. THIS IS AN ELECTRONICALLY VERIFIED FINAL REPORT 11/01/2024 3:04 PM - Electronically signed by Shayen Landaverde M.D. AM T: Report ID: [id number] Reading Location: [id number] Procedure Note Shayne Landaverde MD - 11/01/2024 EXAM DESCRIPTION: CT HEAD WO CONTRAST REASON FOR STUDY: Headache, new onset (Age >= 51y), dizziness, weakness Pt to ED c/o increased weakness and SOB with exertion x1 week. Daughteris with pt who states she also was c/o headache and some dizziness lastnight. Denies fever, cough, congestion. Denies numbness or tingling inextremities. Hx CHF, HTN, dementia, DM, ESRD-HD- pt gets home hemodialysis every other day, last treatment was on Thursday and took 1.1L off. TECHNIQUE: Axial images acquired through the brain without intravenous contrast. Images stored on PACS. Automated exposure control was used asa dose optimization technique for this examination. COMPARISON: CT head 07/12/2024 FINDINGS: BRAIN: No hemorrhage, edema or mass effect. No recent infarct. 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 There is moderatechronic microangiopathy. There is age-appropriate generalized atrophy. No hydrocephalus. EXTRA-AXIAL SPACES: No fluid collections. No masses. CALVARIUM: No fracture. There is hyperostosis frontalis interna. SINUSES/MASTOIDS: No fluid or mucosal thickening. ORBITS: No significant abnormality. OTHER: No other significant abnormality. IMPRESSION: No acute intracranial findings. Chronic findings as above. THIS IS AN ELECTRONICALLY VERIFIED FINAL REPORT 11/01/2024 3:04 PM - Electronically signed by Shayne Landaverde M.D. AM T: Report ID: [id number] Reading Location: [id number] Brittney CUEVA IMG CT PROCEDURES Final Re sult * XR Chest 1 Vw Portable (if patient condition/safety warrant portable) (11/01/2024 2:27 PM CDT) Anatomical Region Laterality Modality Body, Chest N/A Computed Radiogr aphy 11/01/2024 2:58 PM CDT Narrative 11/01/2024 3:00 PM CDT EXAM DESCRIPTION: XR CHEST 1 VIEW REASON FOR STUDY: Shortness of breath Pt to ED c/o increased weakness and SOB with exertion x1 week. Daughter is with pt who states she also was c/o headache and some dizziness last night. Denies fever, cough, congestion, numbness or tingling in extremities. Hx CHF, HTN, dementia, DM, ESRD-HD- pt gets home hemodialysis every other day, last treatment was on Thursday and took 1.1L off. TECHNIQUE: 1 radiographic view(s) of the chest. COMPARISON: 10/24/2024. FINDINGS: LUNGS: No pneumonic consolidation or pulmonary edema seen. No pleural effusion or pneumothorax is seen. Trace linear scarring or atelectasis in the right mid lung. HEART/MEDIASTINUM: Unchanged heart size and cardiomediastinal contours. LINES/TUBES: Right internal jugular dual lumen catheter with distal tip overlying the right atrium, unchanged. BONES: No acute displaced fracture or aggressive bone lesion is seen. Visualized upper abdomen is grossly unremarkable. IMPRESSION: No acute cardiopulmonary findings. THIS IS AN ELECTRONICALLY VERIFIED FINAL REPORT 11/01/2024 3:00 PM - Electronically signed by James Javier M.D. MZ T: Report ID: [id number] Reading Location: [id number] Procedure Note James Javier MD - 11/01/2024 EXAM DESCRIPTION: XR CHEST 1 VIEW REASON FOR STUDY: Shortness of breath Pt to ED c/o increased weakness and SOB with exertion x1 week. Daughteris with pt who states she also was c/o headache and some dizziness lastnight. Denies fever, cough, congestion, numbness or tingling in extremities. HxCHF, HTN, dementia, DM, ESRD-HD- pt gets home hemodialysis every other day,last treatment was on Thursday and took 1.1L off. TECHNIQUE: 1 radiographic view(s) of the chest. COMPARISON: 10/24/2024. FINDINGS: LUNGS: No pneumonic consolidation or pulmonary edema seen. No pleural effusion or pneumothorax is seen. Trace linear scarring or atelectasis in the right mid lung. HEART/MEDIASTINUM: Unchanged heart size and cardiomediastinal contours. LINES/TUBES: Right internal jugular dual lumen catheter with distal tip overlying the right atrium, unchanged. BONES: No acute displaced fracture or aggressive bone lesion is seen. Visualized upper abdomen is grossly unremarkable. IMPRESSION: No acute cardiopulmonary findings. THIS IS AN ELECTRONICALLY VERIFIED FINAL REPORT 11/01/2024 3:00 PM - Electronically signed by James Javier M.D. MZ T: Report ID: [id number] Reading Location: [id number] Tahmina Palencia MD IMG XR PROCEDURES [facility] Result * (ABNORMAL) Troponin T high-sensitivity series (baseline, 2hr, 4hr, 6hr) (11/01/2024 2:03 PM CDT) Trop T hs 57(H) <=14 ng/L Comment: Interpretive Data For further hscTnT resources including the diagnostic algorithm and an aid in interpretation, copy and paste this link: https://nrl.testcatalog.org/show/hsTrop Current Interpretive Data last revised 2020. Blood 11/01/2024 2:03 PM CDT 11/01/2024 2:05 PM CDT Tahmina Palencia MD LAB BLOOD ORDERABLES F inal Result Performing Organization Address [facility] Co de Phone Number NILSA [address] [place] [address] * (ABNORMAL) eGFR (11/01/2024 2:03 PM CDT) eGFR 9(L) >=60 mL/min/1. 73 [...] interpretive data was last reviewed 2021. Blood 11/01/2024 2:03 PM CDT 11/01/2024 2:05 PM CDT us Tahmina Palencia MD LAB BLOOD ORDERABLES F inal Result Performing Organization Address [facility]/ZIP Co de Phone Number NILSA [address] [place] [address] * (ABNORMAL) Differential, auto (11/01/2024 2:03 PM CDT) Neutrophil abs 7.67(H) 1.50 - 6.50 K/cumm Imm gran abs 0.05 0.00 - 0.10 K/cumm [facility] Lymphocyte abs 1.67 0.80 - 3.30 K/cumm [facility] Monocyte abs 0.43 0.20 - 0.80 K/cumm [facility] Eosinophil abs 0.11 0.00 - 0.50 K/cumm [facility] Basophil abs 0.02 0.00 - 0.10 K/cumm [facility] Neutrophil pct 77.1 % [facility] Comment: Interpretive Data Percent cell count reference ranges are not reported, since discordance with absolute values may lead to misinterpretation of CBC data. Current Interpretive Data was last revised on 2017. Imm gran pct 0.5 % [facility] Comment: Interpretive Data Percent cell count reference ranges are not reported, since discordance with absolute values may lead to misinterpretation of CBC data. Current Interpretive Data was last revised on 2017. Lymphocyte pct 16.8 % [facility] Comment: Interpretive Data Percent cell count reference ranges are not reported, since discordance with absolute values may lead to misinterpretation of CBC data. Current Interpretive Data was last revised on 2017. Monocyte pct 4.3 % [facility] Comment: Interpretive Data Percent cell count reference ranges are not reported, since discordance with absolute values may lead to misinterpretation of CBC data. Current Interpretive Data was last revised on 2017. Eosinophil pct 1.1 % [facility] Comment: Interpretive Data Percent cell count reference ranges are not reported, since discordance with absolute values may lead to misinterpretation of CBC data. Current Interpretive Data was last revised on 2017. Basophil pct 0.2 % [facility] Comment: Interpretive Data Percent cell count reference ranges are not reported, since discordance with absolute values may lead to misinterpretation of CBC data. Current Interpretive Data was last revised on 2017. Blood 11/01/2024 2:03 PM CDT 11/01/2024 2:05 PM CDT Tahmina Palencia MD LAB BLOOD ORDERABLES F inal Result Performing Organization Address City/[facility]/ZIP Co de Phone Number NILSA [facility] [employer] [place] [address] * (ABNORMAL) Pro B-type natriuretic peptide (11/01/2024 2:03 PM CDT) NT-proBNP 1,903(H) <=300 pg/mL Comment: Interpretive Comments: A. Dyspnea in Acute Care Setting All Ages: < 300 pg/ml, acute heart failure unlikely. < 50 yrs: 300 - 450 pg/ml, further investigation warranted. > 450 pg/ml, acute heart failure likely. 50 - 74 yrs: 300 - 900 pg/ml, further investigation warranted. > 900 pg/ml, acute heart failure likely . > or = 75 yrs: 450 - 1800 pg/ml, further investigation warranted. > 1800 pg/ml, acute heart failure likely. B. Non-acute Setting < 75 yrs < 125 pg/ml, rules out heart failure. > or = 125 pg/ml, further investigation warranted. > or = 75 yrs < 450 pg/ml, rules out heart failure. > or = 450 pg/ml, further investigation [...] Interpretive Data Last Revised Date: 2018. Blood 11/01/2024 2:03 PM CDT 11/01/2024 2:05 PM CDT us Tahmina Palencia MD LAB BLOOD ORDERABLES F inal Result Performing Organization Address [facility]/ZIP Co de Phone Number NILSA [facility] [employer] [place] [address] * (ABNORMAL) CBC with auto differential (11/01/2024 2:03 PM CDT) [facility] WBC 9.95(H) 3.80 - 9.90 K/cumm Hgb 8.8(L) 11.9 - 15.5 g/dL [facility] Hct 27.2(L) 35.6 - 45.5 % [facility] Plt 207 150 - 400 K/cumm [facility] MPV 10.6 9.1 - 12.3 fL [facility] RBC 2.66(L) 3.90 - 5.20 M/cumm [facility] MCV 102.3(H) 81.3 - 96.4 fL [facility] MCH 33.1 27.1 - 33.3 pg [facility] MCHC 32.4 32.3 - 35.7 g/dL [facility] RDW CV 13.4 11.1 - 14.9 % [facility] RDW SD 50.4(H) 35.7 - 48.1 fL [facility] NRBC abs 0.00 0.00 - 0.01 K/cumm [facility] Blood 11/01/2024 2:03 PM CDT 11/01/2024 2:05 PM CDT Tahmina Palencia MD LAB BLOOD ORDERABLES F inal Result [facility] [address] [facility] [place] [address] * (ABNORMAL) Comprehensive metabolic panel (11/01/2024 2:03 PM CDT) [facility] Sodium 133(L) 135 - 145 mmol/L Potassium, pl 4.3 3.3 - 4.9 mmol/L [facility] Chloride 95(L) 97 - 110 mmol/L [facility] CO2 23 22 - 32 mmol/L [facility] Anion gap 15 2 - 15 mmol/L [facility] BUN 55(H) 6 - 25 mg/dL [facility] Creatinine 4.86(H) 0.60 - 1.10 mg/dL [facility] Glucose 290(H) 70 - 199 mg/dL [facility] Comment: Interpretive Data Fasting [...] 2022. Calcium 9.2 8.5 - 10.3 mg/dL [facility] Bilirubin, total 0.2 0.1 - 1.2 mg/dL [facility] Protein, pl 7.0 6.5 - 8.5 g/dL [facility] Albumin 3.7 3.5 - 5.0 g/dL [facility] Alk phos 116 40 - 130 Units/L [facility] ALT 58(H) 7 - 45 Units/L [facility] AST 26 10 - 45 Units/L [facility] Blood 11/01/2024 2:03 PM CDT 11/01/2024 2:05 PM CDT Tahmina Palencia MD LAB BLOOD ORDERABLES F inal Result [facility] [address] [facility] [place] [address] * ECG 12 lead (11/01/2024 1:59 PM CDT) Pathologist [facility] Ventricular Rate EKG/Min 73 BPM [facility] Atrial Rate 73 BPM [facility] HI-Interval (MSEC) 146 ms [facility] QRS-Interval (MSEC) 58 ms [facility] QT-Interval (MSEC) 396 ms [facility] QTc 436 ms [facility] P [place] 47 degrees [facility] R [place] 2 degrees [facility] T [place] 66 degrees [facility] Diagnosis Normal sinus rhythm Normal ECG When compared with ECG of 12-JUL-2024 11:48, No significant change was found Confirmed by DIAMOND GUTIERREZ M.D. ([id number]) on 11/02/2024 11:07:33 PM [facility] 11/01/2024 1:59 PM CDT 11/02/2024 11:07 PM CDT us Tahmina Palencia MD ECG ORDERABLES Final Result [facility] * (ABNORMAL) Urinalysis reflex to microscopic and culture Urine, clean voided (10/31/2024 9:47 AM CDT) Color, ur Mikayla Yellow Comment:Testing performed by : [address] [address] Clarity, ur Turbid(A) Clear [facility] Comment:Testing performed by : [address] [address] Specific gravity, ur 1.008 1.003 - 1.030 N[facility] Comment:Testing performed by : [address] [address] pH, urine 8.0 [facility] Comment: Interpretive Data U rine pH is affected by diet, medications, systemic acid-base disturbances, and renal tubular function. pH may affect urinary stone formation. For example, urine pH below 6.0 may help reduce the tendency for calcium phosphate stones and pH greater than 6.0 may reduce the tendency for uric acid stone formation. Source: [facility] [place] Current Interpretive Data was last revised on 2017 Testing performed by: [address] [address] Protein, ur ql 2+(A) Negative N[facility]SA Comment:Testing performed by : [address] [address] Glucose, ur ql 3+(A) Negative N[facility]SA Comment:Testing performed by : [address] [address] Ketones, ur Negative Negative N[facility]SA Comment:Testing performed by : [address] [address] Bilirubin, ur Negative Negative [facility] Comment:Testing performed by : [address] [address] Blood, ur Trace(A) Negative N[facility] Comment:Testing performed by : [address] [address] Urobilinogen, ur <2.0 <2.0 mg/dL [facility] Comment:Testing performed by : [address] [address] Nitrite, ur Negative Negative [facility] Comment:Testing performed by : [address] [address] Leukocyte esterase, ur 4+(A) Negative N[facility]SA Comment:Testing performed by : [address], [place]., [address] UA reflex comment Reflex to microscopic UA will be performed. NILSA Comment:Testing performed by : [address], [place]., [address] Urine, clean voided 10/31/2024 9:47 AM CDT 10/31/2024 9:50 AM CDT us Cherelle Corcoran MD LAB MICROBIOLOGY - GENERAL ORDERABLES Final Result [facility] [facility] [place] [address] * (ABNORMAL) Urinalysis, microscopic only (10/31/2024 9:47 AM CDT) WBC, ur 6-10(A) 0 - 5 /HPF Comment:Testing performed by : [address] [address] RBC, ur 0-2 0 - 2 /HPF NILSA Comment:Testing performed by : [address] [address] Bacteria, ur Trace(A) NILSA Comment:Testing performed by : [address] [address] Culture Reflex Comment Reflex conditions for urine culture (WBC >10) not met. [facility]ILSA Comment:Testing performed by : [address] [address] Urine, clean voided 10/31/2024 9:47 AM CDT 10/31/2024 9:50 AM CDT us Cherelle Corcoran MD LAB URINE ORDERAB LES Final Result [facility] [address] [facility] [place] [address] * XR Chest PA Lateral 2 Views (10/24/2024 12:24 PM CDT) Anatomical Region Laterality Modality Body, Chest N/A Computed Radiogr aphy 10/24/2024 9:39 PM CDT Narrative 10/24/2024 9:39 PM CDT EXAM DESCRIPTION: XR CHEST PA LATERAL 2 VIEWS REASON FOR STUDY: Shortness of breath and fatigue for several days TECHNIQUE: Frontal and lateral radiographic views of the chest were acquired. COMPARISON: 07/15/2024 FINDINGS: LUNGS/PLEURA: There is no focal infiltrate or evidence of pneumothorax. No significant pleural effusion. HEART/MEDIASTINUM: The heart size is normal. Normal mediastinal and hilar contours. LINES/TUBES: Right-sided venous port with distal tip in the right atrium. BONES: No acute findings. OTHER: No other significant finding. IMPRESSION: No acute cardiopulmonary abnormality. THIS IS AN ELECTRONICALLY VERIFIED FINAL REPORT 10/24/2024 9:39 PM - Electronically signed by Edwardo Louis M.D. RW: ADAMARIS Report ID: [id number] Reading Location: [id number] Procedure Note Edwardo Louis MD - 10/24/2024 EXAM DESCRIPTION: XR CHEST PA LATERAL 2 VIEWS REASON FOR STUDY: Shortness of breath and fatigue for several days TECHNIQUE: Frontal and lateral radiographic views of the chest wereacquired. COMPARISON: 07/15/2024 FINDINGS: LUNGS/PLEURA: There is no focal infiltrate or evidence of pneumothorax. No significant pleural effusion. HEART/MEDIASTINUM: The heart size is normal. Normal mediastinal and hilar contours. LINES/TUBES: Right-sided venous port with distal tip in the rightatrium. BONES: No acute findings. OTHER: No other significant finding. IMPRESSION: No acute cardiopulmonary abnormality. THIS IS AN ELECTRONICALLY VERIFIED FINAL REPORT 10/24/2024 9:39 PM - Electronically signed by Edwardo Louis M.D. RW: ADAMARIS Report ID: [id number] Reading Location: [id number] Cherelle Corcoran MD IMG XR PROCEDURES Final Result * CT CORONARY CALCIUM SCORING (10/17/2024 9:30 AM CDT) Anatomical Region Laterality Modality Chest Computed Tomogra phy Historical Provider IMG CT PROCEDURES Final R esult * POCT glucose (09/13/2024 9:47 AM CDT) Glucose, POC 176 70 - 199 mg/dL Glucose comment 1 RN/MD Notified [facility] Blood 09/13/2024 9:47 AM CDT 09/13/2024 9:47 AM CDT Jaya Grier MD LAB POCT ORDERABLES - DEVICE Fin al Result [address] Department [place] [address] * Surgical pathology (09/13/2024 9:28 AM CDT) Tissue specimen (specimen) (Esophageal biopsy) 09/13/2024 9:28 AM CDT Comment:Cold bx Narrative PATHOLOGY [facility] - 09/14/2024 1:55 PM CDT [facility] Department of Pathology [address] [place] [id number] Note to Patients: This report may contain [...] : 1950 (Age: 73) Gender: F Address: [address] [place] [address] Hospital #: [id number] Service: Gastro Location: Patient Type: [facility] OUTPATIENT Taken: 09/13/2024 Received: 09/13/2024 Accessioned: 09/13/2024 [...] cm. Entirely submitted. Labeled A1. Jar 0. jjmhb/09/13/2024 13:20 CAMILA Johnson, PA [facility] Microscopic slide review and interpretation for this case was performed at [facility], Department of Surgical Pathology, [address] [facility], [id number], [place] [address] CLIA # [id number] us Jaya Grier MD LAB PATHOLOGY ORDERABLES Final R esult PATHOLOGY [facility] * EGD (09/13/2024 9:17 AM CDT) Anatomical Region Laterality Modality Other Narrative Procedure Note Jaya Grier MD - 09/13/2024 9:17 AM CDT [facility] GI ENDOSCOPY Patient Name: Sixto Chakraborty Procedure Date: 09/13/2024 9:17 AM Date of : 1950 Admit Type: Outpatient Age: 73 Gender: Female Attending MD: Jaya Grier M.D. Room: [facility] ENDOSCOPY ROOM 03 Note Status: [...] On: 09/13/2024 9:17 AM Recognized by the [employer] for promoting quality in endoscopy us Jaya Grier MD ENDOSCOPY PROCEDURES Final Resul t * (ABNORMAL) POC Blood Gas and Chemistries, Venous - (09/13/2024 8:54 AM CDT) pH,chris POC 7.34 7.32 - 7.43 pCO2, chris POC 51(H) 40 - 50 mmHg [facility] pO2,chris POC 22 mmHg [facility] Comment: Interpretive Data No reference range established. Current interpretive data was last revised 2020. HCO3, chris (Calc) POC 27 20 - 30 mmol/L [facility] Base excess, chris POC 1 mmol/L [facility] Comment: Interpretive Data No reference range established. Current interpretive data was last revised 2020. Hemoglobin, chris POC 10.9(L) 11.9 - 15.5 g/dL [facility] Hematocrit, chris POC 32.0(L) 35.6 - 45.5 % [facility] Sodium, chris POC 141 135 - 145 mmol/L [facility] Potassium, chris POC 4.4 3.3 - 4.9 mmol/L [facility] Comment: Interpretive Data This method is not able to assess for hemolysis, which may falsely increase potassium concentrations. If further testing is needed to evaluate this result, consider in-laboratory plasma potassium. Current Interpretive Data was last revised on 2022. Glucose, chris POC 170 70 - 199 mg/dL [facility] Ionized Calcium, chris POC 4.90 4.50 - 5.10 mg/dL [facility] Blood 09/13/2024 8:54 AM CDT 09/13/2024 8:54 AM CDT Jaya Grier MD LAB POCT ORDERABLES - DEVICE Fin al Result [facility] [address] [facility] [place] [address] * HI INJECTION SINGLE/HOSPITAL NURSE TRIGGER POINT 1/2 MUSCLES (09/08/2024 9:00 AM [...] the procedure well with no immediate complications Result [facility] Brook Muhammad CHECKERER HAND IN CLINIC/BEDSIDE ORDERABLE S Final Result * CT Head WO Contrast (09/07/2024) Anatomical Region Laterality Modality Head and Neck N/A Computed Tomogra phy Result [facility] Historical Provider IMG CT PROCEDURES Final R esult * XR Shoulder Right 2 or More Views (09/07/2024) Anatomical Region Laterality Modality Upper Extremities, Shoulder Right Radi ographic Imaging Result [facility] Historical Provider IMG XR PROCEDURES Final R esult * POCT hemoglobin A1c (08/22/2024 8:55 AM REIKI PRACTITIONER) Hemoglobin A1C, POC 7.7 4.0 - 5.6 % Blood 08/22/2024 8:55 AM REIKI PRACTITIONER Result [facility] Smith Gibbs MD POINT OF CARE TEST ORDERABLE S Final Result * Diabetic Eye Exam (07/27/2024 12:37 PM REIKI PRACTITIONER) Result [facility] Historical Provider HEALTH MAINTENANCE Final Result * Colonoscopy (03/01/2024 8:49 AM CDT) Anatomical Region Laterality Modality Other Narrative Procedure Note Jaya Grier MD - 03/01/2024 8:49 AM CDT [facility] GI ENDOSCOPY Patient Name: Sixto Chakraborty Procedure Date: 03/01/2024 8:49 AM Date of : 1950 Admit Type: Outpatient Age: 73 Gender: Female Attending MD: Jaya Grier M.D. Room: [facility] ENDOSCOPY ROOM 06 Note Status: [...] The scope was passed under direct vision.The [id number] colonoscope was introduced through theanus and advanced [...] On: 03/01/2024 8:49 AM Recognized by the [employer] for promoting quality [...] taking vitamin-D. History of end-stage renal disease. Sustain Engineer/Model: Visys A (S/N [id number]) CLINICAL INFORMATION: Current height: 61 inches Maximum [...] Electronically signed by Rafaela Paulino M.D. TW: Report ID: [id number] Reading Location: [place] [address] Procedure Note Rafaela Paulino MD - 01/22/2024 EXAM DESCRIPTION: DEXA AXIAL SKELETON BONE DENSITY 1 OR MORE SITES REASON FOR STUDY: 73 y/o year old F with given history of: Post menopausal status. History of taking vitamin-D. History of end-stagerenal disease. Sustain Engineer/Model: HoloSpectropath Horizon A (S/N [id number]) CLINICAL INFORMATION: Current height: 61 inches Maximum [...] Rafaela Paulino M.D. TW: TW Report ID: [id number] Reading Location: [place] [address] Cherelle Corcoran MD IM DXA PROCEDURE S Final Result * Screening [...] age 40, based on guidelines of the [employer] (ACR Practice Parameter for the Performance of Screening and Diagnostic Mammography) and [place] [employer]. For women [...] CDT Jimbo Strauss MD LAB MICROBIOLOGY - [facility] Final Result [facility] [address] [place] [address] * (ABNORMAL) Albumin Creatinine Ratio, Urine (10/10/2022 11:39 AM CDT) Albumin Ur 3,240.2 mg/L [facility] Comment: Interpretive Data No reference range established. Current interpretive data was last revised 2018. Testing performed by: [address] [address] Creatinine Ur 74.8 mg/dL [facility] Comment: Interpretive Data No reference range established. Current interpretive data was last revised 2018. Testing performed by: [address] [address] Albumin Creatinine Ratio, Ur 4,332(H) 1 - 29 mg/g [facility] Comment:Testing performed by : [address] [address] Urine 10/10/2022 11:3 9 AM CDT 10/10/2022 1:45 PM CDT Markie Ryan MD LAB URINE ORDERABLES Final Re sult [facility] [address] [facility] [place] [address] from Last 3 Months or Most Recently Relevant to Health Maintenance
--- OUTSIDE RECORDS SUMMARY | 2024-11-09 10:02 | XMS_ITS | Encounter Summary ---
Author Organization [facility] Healthcare Address [address] [place] [address] Care Team Providers Care Safety Administrator Name Role Phone Cherelle Corcoran MD Primary Care Pro vider Mark Queen MD Unavailable [phone] Rudolph Welch MD Unavailable Markie Ryan MD Unavailable Jimbo Strauss MD Unavailable [phone] Jaya Grier MD Unavailable Edgardo Kauffman MD Unavailable [phone] Macrina Mike RN Unavailable Reason for Visit * Reason Onset Date Comments Additional Services Or Orders 11/07/2024 Encounter Details Date Type Department Care Team ([facility] st Contact Info) Description 11/07/2024 Telephone [facility] Medical Group Primary Care at [address] [phone] Cherelle Corcoran MD [address] [place] [id number] Additional Services Or Orders Social History [...] materials from doctor or pharmacy Often 01/20/2024 [facility] Utilities Answer Date Recorded In the past 12 months has e [email or web address], gas, oil, or water [employer] threatened to shut off services in your [...] you attend chur ch or religion services? Patient unable to answer 11/07/2024 Do [...] living in a prison (including now)? No 11/07/2024 Personal Safety Answer Date Recorded Have you ever been in or are you currently in a harmful physical or emotional relationship or is someone making you feel afraid or unsafe? Denies 11/01/2024 Comments No Sex and Gender Information Value Date Recorded Sex Assigned at Not on file Legal Sex Female 9:03 AM DIRECTOR OF CUSTOMER ACQUISITION Gender Identity Female 02/08/2020 6:39 PM CDT Sexual Orientation Not on file documented as of this encounter Miscellaneous Notes * Telephone Encounter - Tamela, Nelly C. - 11/08/2024 12:00 PM CDT Medical Question/Miscellaneous Caller???s Concern: Lucille calling to inform Dr. Cherelle Corcoran that [facility] can not fulfill the referral for Physical Therapy, Occupation Therapy, and Alf due to the patientbeing in an out-patient day program. Patient's daughter was informed and stated she would reach outto the office. Does message need to be routed? Yes-Action Needed * Telephone Encounter - Sandy Mota MA - 11/08/2024 11:52 AM CDT Called and spoke with Sabas and he is aware Dr. Corcoran will follow/sign orders. Nothing further at this time * Telephone Encounter - Nelly Recinos - 11/07/2024 11:24 AM CDT Additional Services or Orders Type of Service Requested:Occupational Therapy, Physical Therapy, and Home Health Duration/Number of Visits: Initial Eval Is a verbal order acceptable? Yes Reason for Request (e.g. condition/symptom, date of COVID exposure if applicable): Admitted to hospital recently for Shortness of Breath and Anemia, and being discharged with home health orders. Details Regarding Additional Services (e.g. type of home health, type of equipment, type of test, etc.): Alf, Physical Therapy, Occupational Therapy Where will services be performed? (if outside of the practice, facility name, address, phone/fax offacility): Patient's Home Additional Comments: Will Dr. Corcoran sign and follow for home health orders? Does message need to be routed? Yes-Action Needed documented in this encounter Plan of Treatment Scheduled Procedures Name Priority Associated Diagnoses Date/Ti me COLONOSCOPY Iron deficiency anemia due to chronic blood loss documented as of this encounter Visit Diagnoses Not on filedocumented in this encounter Care Teams Safety Administrator Relationship Specialty Start Date End Date Cherelle Corcoran MD PCP - General Family Medicine 08/30/19 Mark Queen MD Consulting Physician Infectious Diseases 01/10/20 Rudolph Welch MD [address] [facility] [address] [place] [address] Consulting Physician Infectious Diseases 12/05/22 Markie Ryan MD [address] [facility] [address] [place] [address] Consulting Physician Nephrology 12/05/22 [place] [address] [facility] [address] [place] [address] Consulting Physician Nephrology 10/22/23 Jaya Grier MD [address] [facility] [address] [place] [address] Consulting Physician Gastroenterology 02/01/24 Edgardo Kauffman MD [address] [facility] [address] [facility] [address] [place] [address] Surgeon Vascular Surgery 07/15/24 Macrina Mike RN [address] [place] [address] [address] [place] [address] Senior Reliability Engineer 11/07/24 documented as of this encounter
--- OUTSIDE RECORDS SUMMARY | 2024-11-09 10:02 | XMS_ITS | Clinical Summary ---
Author Organization [facility] Address [address] [place] [address] Care Team Providers Care System Programmer Name Role Phone Cherelle Corcoran MD Primary Care Pro vider Mark Queen MD Unavailable [phone] Rudolph Welch MD Unavailable Markie Ryan MD Unavailable Jimbo Strauss MD Unavailable [phone] Jaya Grier MD Unavailable Edgardo Kauffman MD Unavailable Macrina Mike RN Unavailable Allergies No known active allergies Medications FreeStyle Madhav 3 [facility] Use Madhav 3 reader to scan Madhav [...] polyneuropathy associated with type 2 diabetes mellitus ([facility]) TAKE 1 CAPSULE BY MOUTH [...] use of insulin ([facility]) 1 each by other route [...] use of insulin ([facility]) Inject 4 units SQ before meals along with sliding scale. Max TDD 20 units 15 mL 3 025 Active cholecalciferol (VITAMIN D-3) 5,000 unit [...] mouth daily for 4 days 4 capsule 025 2024 Active benztropine (COGENTIN) 2 mg tablet Take 1 tablet (2 mg total) by mouth nightly Active lidocaine (LIDODERM) 5 % Place 1 patch on the skin daily for 12 hours Remove & discard patch within 12 hours or as directed by . 30 patch 11 025 2024 Active omeprazole (PriLOSEC) 20 mg capsuleIndication [...] diabetes m maryamitus 07/07/2024 Assessment & Plan (10/24/2024 11:30 AM CDT): Preivously discussed ok to restart atorvastatin, but also given overall health status reasonable to continue holding, especially if had side effects with restarting Assessment & Plan (07/14/2024 2:30 PM ACCOUNTS PAYABLE SPECIALIST): Continue Lipitor Assessment & Plan (07/14/2024 8:56 AM ACCOUNTS PAYABLE SPECIALIST): Ok to restart atorvastatin, but also given [...] nephrology Assessment & Plan (07/14/2024 2:39 PM ACCOUNTS PAYABLE SPECIALIST): Patient is needing a Perma catheter exchange [...] proceed. Assessment & Plan (07/14/2024 8:51 AM ACCOUNTS PAYABLE SPECIALIST): Following with nephrology Assessment & Plan (01/06/2024 12:53 PM CDT): History of ESRD on HD Tue//Sat. Missed HD session on 01/04 due to [...] 10/30/2023 Assessment & Plan (05/06/2024 7:49 AM ACCOUNTS PAYABLE SPECIALIST): Reviewed hospital discharge summary Now resolved Upcoming [...] stable Assessment & Plan (07/24/2023 1:51 PM ACCOUNTS PAYABLE SPECIALIST): Chronic/stable Parkinsonism 08/14/2022 Assessment & Plan (10/24/2024 10:57 AM CDT): Following with neurology Assessment & Plan (07/14/2024 8:54 AM ACCOUNTS PAYABLE SPECIALIST): Following with neurology, recommend reaching out to them in regards to restarting benztropine. Consider waiting until after restarts other medications given daughter reports tremors controlled off benztropine currently Assessment & Plan (11/10/2023 4:43 PM CDT): Following with neurology On cogentin Assessment & Plan (07/24/2023 1:50 PM ACCOUNTS PAYABLE SPECIALIST): Following with neurology On cogentin twice a day Assessment & Plan (01/23/2023 9:20 AM CDT): Following with neurology On cogentin twice a day Assessment & Plan (10/10/2022 10:41 AM CDT): Following with neurology On cogentin Assessment & Plan (08/14/2022 10:46 AM ACCOUNTS PAYABLE SPECIALIST): Following with neurology, reviewed note On cogentin [...] - PT/OT recommends SNF. -Plan Agued[facility], [facility] on 11/26 ? Assessment & Plan (11/24/2021 2:07 PM CDT): Deconditioning 2/2 prolonged hospitalization. Daughter reports that prior to her illness, she was independent with a walker. - PT/OT recommends SNF. -Plan [facility] SNF on 11/25. Assessment & Plan (11/23/2021 12:24 PM CDT): Deconditioning 2/2 prolonged hospitalization. Daughter reports that prior to her illness, she was independent with a walker. - PT[facility]OT [facility] Assessment & Plan (11/22/2021 1:34 PM CDT): Deconditioning 2/2 prolonged hospitalization. Daughter reports that prior to her illness, she was independent with a walker. - PT/OT recommends SNF. -Plan [facility] SNF on 11/25. Assessment & Plan (11/21/2021 [...] care Assessment & Plan (08/14/2022 10:47 AM ACCOUNTS PAYABLE SPECIALIST): Following with podiatry Assessment & Plan (04/02/2022 [...] - renal consulted regarding volume management, possible keno terminal operator dialysis planning, expedite OP f/u. Serologies and urine studies ordered. ED neg, compliments neg, cryoglobulin pending, ANCA pending, HIV neg. Continued -Added metolazone 2.5mg/daily per renal 09/13- with improving swelling, Cr bump to 2.33 so held further -Transitioned to PO agents prior to DC (09/17) with ongoing clinical improvement. Goal weight 155lbs -Home with family at [place], assistant signal maintainer consulted to review salt restrictions. -outpatient BMP, [...] Goal weight 155lbs -Home with family at [place], assistant signal maintainer consulted to review salt restrictions. Assessment & [...] Goal weight 145-150lbs -Home with family at [place], assistant signal maintainer consulted to review salt restrictions. Assessment & [...] - renal consulted regarding volume management, possible keno terminal operator dialysis planning, expedite OP f/u. Serologies [...] - renal consulted regarding volume management, possible keno terminal operator dialysis planning, expedite OP f/u. Assessment & [...] net neg 1/2-1L/day. -consider renal consult regarding keno terminal operator dialysis planning, expedite OP f/u. Assessment & [...] -consider renal consult regarding nursing home dialysis planning. Assessment & Plan (09/06/2021 10:28 [...] neurology Assessment & Plan (07/14/2024 8:53 AM ACCOUNTS PAYABLE SPECIALIST): Following with neurology Assessment & Plan (01/05/2024 10:40 PM CDT): Follows with neurology. -continue risperidone 2mg QHS -continue benztropine 2mg daily Assessment & Plan (11/10/2023 4:37 PM CDT): Following with neurology Assessment & Plan (07/24/2023 1:50 PM ACCOUNTS PAYABLE SPECIALIST): Following with neurology Assessment & Plan (01/23/2023 9:18 AM CDT): Following with neurology Assessment & Plan (10/10/2022 10:37 AM CDT): Following with neurology, ordered MRI, # given to son to schedule Assessment & Plan (06/09/2022 3:37 PM ACCOUNTS PAYABLE SPECIALIST): Needs to reschedule with neurology Looking into [facility], but declined for [facility] for schizoaffective disorder Assessment & Plan [...] needed Assessment & Plan (06/09/2022 3:37 PM ACCOUNTS PAYABLE SPECIALIST): Reviewed [facility] & PHQ Screening PHQ-2 Total Score (If total score is 3 or more points, staff should administer the PHQ-9): 0 Hearing/vision screening reviewed, referrals placed as needed Fall risk reviewed Reviewed medications and supplements Specialists: endocrine, nephrology, cardiology, neurology evidence of cognitive impairment HCM: orders placed as needed Assessment & Plan (01/08/2021 3:44 PM CDT): Reviewed [facility] & PHQ Screening PHQ-2 Total Score [...] psychiatry Assessment & Plan (08/18/2024 8:44 AM ACCOUNTS PAYABLE SPECIALIST): Chronic, stable. Does not report any stephanie [...] discussed. Assessment & Plan (07/14/2024 8:54 AM ACCOUNTS PAYABLE SPECIALIST): Following with psychiatry, recommend reaching out to [...] psychiatry Assessment & Plan (07/24/2023 1:50 PM ACCOUNTS PAYABLE SPECIALIST): Following with psychiatry Assessment & Plan (01/23/2023 [...] discussed. Assessment & Plan (08/09/2021 5:42 AM ACCOUNTS PAYABLE SPECIALIST): Following with psychiatry Assessment & Plan (08/07/2021 3:28 PM ACCOUNTS PAYABLE SPECIALIST): Chronic condition, switch to Haldol and has had multiple different problems including acute kidney failure in infectious process. [facility] Confounded by delirium. Currently experiencing delirium will discontinue Haldol and return to Risperdal as previously taking. Risperdal was discontinued due to poorly-controlled diabetes. Monitor in 1 to 2 weeks. Assessment & Plan (07/03/2021 7:24 AM ACCOUNTS PAYABLE SPECIALIST): Following with psychiatry D/c risperidone, started on haldol Assessment & Plan (07/01/2021 9:16 PM ACCOUNTS PAYABLE SPECIALIST): Chronic, stable. 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 The patient previously lived on her own and was observed to be hoarding. See additional problems-dementia. Evaluate again in 1 month after starting Risperdal. Iron deficiency anemia 04/02/2020 Assessment & Plan (05/06/2024 7:51 AM ACCOUNTS PAYABLE SPECIALIST): Recommend discussing IV iron with nephrology Assessment & Plan (10/02/2020 4:35 PM CDT): Continue iron Assessment & Plan (05/28/2020 1:51 PM ACCOUNTS PAYABLE SPECIALIST): Iron levels recently normalized, but still anemic, repeat today Assessment & Plan (04/16/2020 11:45 AM CDT): Recent iron within normal limits, H/H improving, continue supplementation until normalized Gastroesophageal reflux disease without esophagi tis 04/02/2020 Assessment & Plan (10/24/2024 10:57 AM CDT): continue protonix Following with GI Assessment & Plan (07/14/2024 8:56 AM ACCOUNTS PAYABLE SPECIALIST): Restart protonix Upcoming EGD Assessment & Plan (01/05/2024 10:40 PM CDT): -continue famotidine Assessment & Plan (10/02/2020 4:35 PM CDT): Continue omeprazole Assessment & Plan (07/24/2020 2:06 PM ACCOUNTS PAYABLE SPECIALIST): Recurrent symptoms off omeprazole, restart Assessment & Plan (05/28/2020 1:51 PM ACCOUNTS PAYABLE SPECIALIST): Iron levels recently normalized, but still anemic, repeat today Assessment & Plan (04/02/2020 1:26 PM CDT): Start PPI History of amputation of toe 01/19/2020 Assessment & Plan (01/08/2021 3:50 PM CDT): Stable Assessment & Plan (10/02/2020 4:35 PM CDT): Stable Assessment & Plan (04/30/2020 1:00 PM ACCOUNTS PAYABLE SPECIALIST): Stable Assessment & Plan (02/14/2020 5:15 PM CDT): Healing well Following with surgeon/wound clinic Assessment & Plan (01/19/2020 5:17 PM CDT): Has home health Following with vascular Hypertension associated with diabetes 12/13/2019 Assessment & Plan (10/24/2024 11:12 AM CDT): BP controlled Assessment & Plan (07/14/2024 2:32 PM ACCOUNTS PAYABLE SPECIALIST): Continue carvedilol, hydralazine Assessment & Plan (07/14/2024 8:51 AM ACCOUNTS PAYABLE SPECIALIST): BP controlled today off medication Daughter reports nephrology said could restart medication, is planning to restart coreg first and monitor blood pressure prior to restarting nifedipine/hydralazine Assessment & Plan (05/06/2024 7:48 AM ACCOUNTS PAYABLE SPECIALIST): BP controlled Continue nifedipine, hold prior to [...] x1 with HD. Most recent admission at [facility] with initiation of hydralazine and nifedipine [...] amlodipine Assessment & Plan (08/03/2023 4:02 PM ACCOUNTS PAYABLE SPECIALIST): BP uncontrolled Start 5mg amlodipine Assessment & Plan (07/24/2023 1:49 PM ACCOUNTS PAYABLE SPECIALIST): Blood pressure borderline today off medications Assessment & Plan (01/23/2023 9:18 AM CDT): Blood pressure borderline low today, asymptomatic Checking labs Advised to decrease amlodipine to 5mg and monitor blood pressure Assessment & Plan (10/10/2022 10:50 AM CDT): Continue coreg 6.25mg twice a day & 40mg valsartan Assessment & Plan (08/14/2022 10:43 AM ACCOUNTS PAYABLE SPECIALIST): Blood pressure at goal, continue coreg 6.25mg twice a day Assessment & Plan (06/09/2022 3:32 PM ACCOUNTS PAYABLE SPECIALIST): Blood pressure at goal, continue coreg 3.125mg [...] day Assessment & Plan (08/05/2021 10:35 AM ACCOUNTS PAYABLE SPECIALIST): Blood pressure at goal Increase amlodipine to 10mg & d/c hydralazine per cardiology Assessment & Plan (05/28/2021 4:59 PM ACCOUNTS PAYABLE SPECIALIST): Blood pressure above goal, but previously within [...] lisinopril Assessment & Plan (08/28/2020 12:12 PM ACCOUNTS PAYABLE SPECIALIST): Blood pressure at goal Continue lisinopril Assessment & Plan (07/24/2020 2:05 PM ACCOUNTS PAYABLE SPECIALIST): Blood pressure at goal Continue lisinopril Assessment & Plan (05/28/2020 1:50 PM ACCOUNTS PAYABLE SPECIALIST): BP borderline Continue 10mg lisinopril Continue to monitor Assessment & Plan (04/30/2020 12:32 PM ACCOUNTS PAYABLE SPECIALIST): BP borderline Continue 10mg lisinopril Continue to [...] endocrine Assessment & Plan (07/14/2024 2:31 PM ACCOUNTS PAYABLE SPECIALIST): Controlled. Continue as per Endocrine and PCP Assessment & Plan (07/14/2024 8:50 AM ACCOUNTS PAYABLE SPECIALIST): Following with endocrine, reviewed note Holding insulin [...] +SSI Assessment & Plan (07/24/2023 1:49 PM ACCOUNTS PAYABLE SPECIALIST): Lab Results Component Value Date HGBA1C 8.1 [...] trulicity Assessment & Plan (08/14/2022 10:42 AM ACCOUNTS PAYABLE SPECIALIST): Following with endocrine Continue lantus, 12 units humalog TIDAC & 1.5mg trulicity Assessment & Plan (06/09/2022 3:32 PM ACCOUNTS PAYABLE SPECIALIST): Following with endocrine Home blood sugar at [...] for strict med oversight by family at [place] reviewed with daughter this admit. Assessment & [...] for strict med oversight by family at [place] reviewed with daughter this admit. Assessment & [...] and nephropathy. Med oversight by family at [place]. Assessment & Plan (09/14/2021 12:22 PM CDT): [...] as she had discussed this with outpatient electrolysist - repeat A1c - resume home statin, not currently on feliciano due to kidney function Assessment & Plan (08/05/2021 10:35 AM ACCOUNTS PAYABLE SPECIALIST): Continue 15 units lantus twice a day Assessment & Plan (07/03/2021 7:24 AM ACCOUNTS PAYABLE SPECIALIST): Fasting blood sugar significantly improved Risperidone changed Continue current meds Continue to monitor Assessment & Plan (06/18/2021 11:22 AM ACCOUNTS PAYABLE SPECIALIST): Increase lantus to 60 units nightly, if blood sugar still above goal after 1 week split into 33 units twice a day Follow up with blood sugar via portal in 2 weeks Continue jardiance 25mg Continue trulicity 4.5mg weekly Assessment & Plan (05/28/2021 4:58 PM ACCOUNTS PAYABLE SPECIALIST): Increase lantus to 55 units nightly Continue [...] weekly Assessment & Plan (08/28/2020 1:00 PM ACCOUNTS PAYABLE SPECIALIST): DM Care Plan: Meds: Lantus - continue [...] recheck Assessment & Plan (07/24/2020 2:05 PM ACCOUNTS PAYABLE SPECIALIST): Formulary change 2/2 insurance, switched to trulicity. Will increase to 1.5mg Assessment & Plan (05/28/2020 1:50 PM ACCOUNTS PAYABLE SPECIALIST): Check a1c Sixto isn't checking blood sugar regularly, but when she is she has several >200 so I lean towards increasing if a1c>7 Assessment & Plan (04/30/2020 12:31 PM ACCOUNTS PAYABLE SPECIALIST): Blood sugar improved on 40 units basaglar [...] was in the room. Recently treated at [facility] for PNA with prolonged course [...] was in the room. Recently treated at [facility] for PNA with prolonged course [...] was in the room. Recently treated at [facility] for PNA with prolonged course [...] was in the room. Recently treated at [facility] for PNA with prolonged course [...] was in the room. Recently treated at [facility] for PNA with prolonged course [...] was in the room. Recently treated at [facility] for PNA with prolonged course [...] was in the room. Recently treated at [facility] for PNA with prolonged course [...] was in the room. Recently treated at [facility] for PNA with prolonged course [...] was in the room. Recently treated at [facility] for PNA with prolonged course [...] was in the room. Recently treated at [facility] for PNA with prolonged course [...] 11/10/2023 Assessment & Plan (08/14/2022 10:44 AM ACCOUNTS PAYABLE SPECIALIST): Continue eliquis Assessment & Plan (06/09/2022 3:36 PM ACCOUNTS PAYABLE SPECIALIST): Continue eliquis Assessment & Plan (04/02/2022 6:05 [...] 10/10/2022 Assessment & Plan (08/07/2021 3:30 PM ACCOUNTS PAYABLE SPECIALIST): Subacute, persistent, hospitalized recently. She is alert [...] Impression: Patient recently had MRI performed at [facility] which revealed acute osteomyelitis to [...] 08/28/2020 Assessment & Plan (05/28/2020 1:52 PM ACCOUNTS PAYABLE SPECIALIST): Encouraged to follow up with wound clinic for reassessment Assessment & Plan (04/30/2020 12:31 PM ACCOUNTS PAYABLE SPECIALIST): Following with wound clinic Assessment & Plan [...] osteomyelitis on recent MRI performed at [facility]. She is being treated with antibiotic [...] nightly Assessment & Plan (08/14/2022 10:42 AM ACCOUNTS PAYABLE SPECIALIST): Continue lyrica 150mg nightly Assessment & Plan (06/09/2022 3:32 PM ACCOUNTS PAYABLE SPECIALIST): Continue lyrica 150mg nightly Assessment & Plan [...] status. Assessment & Plan (05/28/2021 4:58 PM ACCOUNTS PAYABLE SPECIALIST): Continue lyrica 150mg nightly Assessment & Plan [...] gabapentin Assessment & Plan (08/28/2020 1:00 PM ACCOUNTS PAYABLE SPECIALIST): On gabapentin Assessment & Plan (07/24/2020 2:05 PM ACCOUNTS PAYABLE SPECIALIST): Continue gabapentin Assessment & Plan (04/02/2020 1:22 [...] Encounters Date Type Department Care Team Description 11/08/19 Telephone [facility] Nephrology at [address] [phone] Markie Ryan MD 11/08/19 Telephone [facility] Primary Care at [address] [phone] Cherelle Corcoran MD Additional Services Or Orders 11/08/19 Telephone [facility] Primary Care at [address] [phone] Cherelle Corcoran MD 11/08/19 Telephone [facility] Primary Care at [address] [phone] Cherelle Corcoran MD Appointment Request 11/02/19 3:17 PM CDT - 11/06/19 1:00 PM CDT Hospital Encounter [address] [address] Tahmina Palencia MD Medavaram, Atul, MD Al Furgani, Mahmud Mustafa, MD Hypertensive urgency (Primary Dx); Acute cystitis without hematuria; Generalized weakness; Peripheral vertigo, unspecified laterality; Lightheadedness; ESRD on hemodialysis (HCC); Anemia of renal disease; Hyponatremia Discharge Disposition: Discharge to home, home health skilled care 11/02/19 Nurse Triage [facility] Primary Care at [address] [phone] Cherelle Corcoran MD 11/01/19 8:53 AM CDT - 11/01/19 11:59 PM CDT Hospital Encounter [facility] [address] [place] [phone] UTI symptoms Discharge Disposition: Discharge to home or self care 11/01/19 Results Follow-Up [facility] Primary Care at [address] [phone] Cherelle Corcoran MD Urinalysis reflex to microscopic and culture Urine, clean voided, Urinalysis, microscopic only 10/26/19 Results Follow-Up [facility] Primary Care at [address] [phone] Cherelle Corcoran MD XR Chest PA Lateral 2 Views 10/25/19 11:45 AM CDT - 10/25/19 11:59 PM CDT Hospital Encounter [facility] 1 DIAG IMG [address] [place] [phone] SOB (shortness of breath) Discharge Disposition: Discharge to home or self care 10/25/19 11:35 AM CDT Lab [facility] [address] [place] [phone] 10/25/19 10:30 AM CDT Office Visit [facility] Primary Care at [address] [phone] Cherelle Corcoran MD Encounter for Medicare annual wellness exam (Primary Dx); UTI symptoms; SOB (shortness of breath); Type 2 diabetes mellitus with diabetic neuropathy, with long-term current use of insulin (HCC); Moderate nonproliferative diabetic retinopathy of both eyes without macular edema associated with type 2 diabetes mellitus (HCC); Hypertension associated with diabetes (HCC); Hyperlipidemia associated with type 2 diabetes mellitus (HCC); ESRD on hemodialysis (HCC); Late onset Alzheimer's dementia without behavioral disturbance (HCC); Parkinsonism, unspecified Parkinsonism type ([facility]); Schizoaffective disorder, bipolar type (HCC); Chronic diastolic congestive heart failure (HCC); Gastroesophageal reflux disease without esophagitis 10/19/19 25 Orders Only [facility] Nephrology at [address] [phone] Joe Ballard MD 10/04/19 25 Telephone [facility] Endocrinology Metabolism and Lipid [address] [place] [address] Medical Office Building [address], [address] [place] [address] Yoly Herrera, RN Insulin dosing 10/04/19 25 Telephone [facility] Primary Care at [address] [phone] Cherelle Corcoran MD Medical Question/Miscellaneous 09/22/19 25 Nurse Triage [facility] Primary Care at [address] [phone] Cherelle Corcoran MD 09/15/19 25 Results Follow-Up [facility] Gastroenterology at [address] [place] [phone] Jaya Grier MD Surgical pathology 09/14/19 25 9:19 AM CDT Anesthesia Event [facility] [address] [place] [address] Sarahy Hernandez MD 09/14/19 8:00 AM CDT - 09/14/19 8:30 AM CDT Surgery [facility] [address] [place] [address] Jaya Grier MD ESOPHAGOGASTRODUODENOSCOPY BIOPSY 09/14/19 7:54 AM CDT - 09/14/19 10:32 AM CDT Hospital Encounter [facility] [address] [place] [address] Jaya Grier MD Ulcer of esophagus without bleeding; Gastroesophageal reflux disease without esophagitis Discharge Disposition: Discharge to home or self care 09/09/19 9:00 AM CDT Office Visit [facility] Orthopedics and Sports Medicine [address] [place] [address] Brook Muhammad NP Myofascial pain syndrome, cervical (Primary Dx); Chronic neck pain; Foraminal stenosis of cervical region, diffuse bilateral; Arthropathy of cervical facet joint; DDD (degenerative disc disease), cervical, C3-C4 through C6-C7; Cervical spinal osteophytosis, multilevel 09/01/19 2:15 PM CDT Office Visit [facility] Cardiology [address] [phone] Santo Vail MD Dyspnea, unspecified type (Primary Dx) 08/23/19 8:20 AM ACCOUNTS PAYABLE SPECIALIST Office Visit [facility] Endocrinology Metabolism and Lipid [address] [facility] [address] [facility] [address] [place] [address] Smith Gibbs MD Type 2 diabetes mellitus with diabetic nephropathy, with long-term current use of insulin (HCC) (Primary Dx); Type 2 diabetes mellitus with diabetic neuropathy, with long-term current use of insulin (HCC); Mixed hyperlipidemia; ESRD on hemodialysis (HCC); Primary hypertension 08/18/19 8:15 AM ACCOUNTS PAYABLE SPECIALIST Telemedicine [facility] [phone] [phone] Adryan Swenson MD Schizoaffective disorder, bipolar type (HCC) (Primary Dx) 08/17/19 Telephone [facility] Primary Care at [address] [place] [phone] Cherelle Corcoran MD Medical Question/Miscellaneous from Last 3 Months Immunizations Immunization Administration [...] Sister 2 Valentine Luis Sister 3 Morenita Sherin Social History Tobacco Use Types Packs/Day Years [...] from doctor or pharmacy Often 01/20/2024 [facility] Utilities Answer Date Recorded In the [...] you attend chur ch or yazidism services? Patient unable to answer 11/07/2024 Do [...] in a assisted (including now)? No 10/30/2023 PHQ-9 Answer Date [...] living in a assisted (including now)? No 11/07/2024 Personal Safety Answer Date Recorded Have you ever been in or are you currently in a harmful physical or emotional relationship or is someone making you feel afraid or unsafe? Denies 11/01/2024 Comments No Sex and Gender Information Value Date Recorded Sex Assigned at Not on file Legal Sex Female 9:03 AM ACCOUNTS PAYABLE SPECIALIST Gender Identity Female 02/08/2020 6:39 PM [...] Mass Index 26.49 11/01/2024 9:50 PM CDT Plan of Treatment Scheduled Procedures Name Priority Associated Diagnoses Date/Ti me COLONOSCOPY Iron deficiency anemia due to chronic blood loss Health Maintenance Due Date Last Done Comments DTaP/Tdap/Td Vaccine (1 - Tdap) 1961 Zoster Vaccine (1 of 2) 2000 Foot Exam 04/02/2021 04/02/2020 Albumin Creatinine Ratio, Urine 10/11/2023 10/10/2022, 09/14/2021, 08/05/2021 Covid-19 Vaccine ( - 2023-2 5 season) 2024 06/11/2021, 10/13/2020, 09/22/2020 Breast Cancer Screening-Mammogram 01/21/2025 01/22/2024, 01/22/2024, 09/25/2022, Additional history exists Hemoglobin A1C 05/04/2025 11/01/2024, 03/0 08/2024, 05/16/2024, Additional history exists Dilated Eye Exam 07/27/2025 07/27/2024, , 05/27/2022, Additional history exists Well Visit 65+ 10/24/2025 10/24/2024, 10/21, 06/09/2022, Additional history exists Depression Screening 11/01/2025 11/01/2024, 11/01/2024, 10/24/2024, Additional history exists Lipid Panel 11/01/2025 11/01/2024, 04/23, 10/30/2023, Additional history exists Fall Risk Assessment 11/05/2025 11/05/2024, 10/24/2024, 11/10/2023, Additional history exists eGFR 11/05/2025 11/05/2024, 10/20, 11/03/2024, Additional history exists Osteoporosis Screening-Bone Density Scan [...] 024, 01/20/2019, 03/31/2017 Hepatitis B Screening Completed 11/02/2024 , 03/10/2024, 01/07/2024, Additional history exists Medical Devices Implanted Type Area Teradata Architect Device Identifier Shelf Expiration Date Model / Serial / Lot [facility] [employer] [facility] [employer] Vascpak Safesheath D-Pro 15.5fr 24cm Kit Catheter [id number] - [id number] Implanted:Qty: 1 on 10/15/2023 at [facility] [employer] 10/19/2025 [id number] 85 / / [id number] [facility] [employer] Duraflow Embosafe 15.5fr 24cm Basic 2 Lumen Kit Catheter [id number] - [id number] Implanted:Qty: 1 on 07/15/2024 by Edgardo Kauffman MD at [facility] 08/19/2026 [id number] 15 / / [id number] Procedures Procedure Name Priority Date/Time Associated Diagnosis [...] S, VENOUS Routine 09/13/2024 8:54 AM CDT DE INJECTION 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/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 TRIG [place] POINT 1/2 MUSCLES Routine 09/08/2024 9:00 AM CDT Myofascial pain syndrome, cervical XR SHOULDER RIGHT 2 OR MORE VIEWS Schedule Routine, Read Routine (OP Routine) 09/07/2024 CT HEAD WO CONTRAST Schedule Routine, Read Routine (OP Routine) 09/07/2024 POCT HEMOGLOBIN A1C Routine 08/22/2024 8:55 AM ACCOUNTS PAYABLE SPECIALIST Type 2 diabetes mellitus with diabetic nephropathy, with long-term current use of insulin (HCC) DIABETIC EYE EXAM Routine 07/27/2024 12:37 PM ACCOUNTS PAYABLE SPECIALIST COLONOSCOPY 03/01/2024 8:49 AM CDT DEXA AXIAL [...] to Health Maintenance Results * POCT glucose (11/05/2024 11:49 AM CDT) Glucose, POC 187 70 - 199 mg/dL Glucose comment 1 RN/MD Notified NILSA Blood 11/05/2024 11:4 9 AM CDT 11/05/2024 11:49 AM CDT Juan J Heller MD LAB POCT ORDERABLES - DEVICE Final Result NILSA [address] [facility] Department [place] [address] * (ABNORMAL) eGFR (11/05/2024 6:52 AM CDT) [...] 7:12 AM CDT us Brad Sebastien Smallwood [employer] LAB BLOOD ORDERABLES Fin al Result [facility] [address] [facility] [place] [address] * Differential, auto (11/05/2024 6:52 AM CDT) Pathologist [facility] Neutrophil abs 5.74 1.50 - 6.50 K/cumm Imm gran abs 0.05 0.00 - 0.10 K/cumm [facility] Lymphocyte abs 1.98 0.80 - 3.30 K/cumm [facility] Monocyte abs 0.73 0.20 - 0.80 K/cumm [facility] Eosinophil abs 0.13 0.00 - 0.50 K/cumm [facility] Basophil abs 0.03 0.00 - 0.10 K/cumm [facility] Neutrophil pct 66.3 % [facility] Comment: Interpretive Data Percent cell count reference ranges are not reported, since discordance with absolute values may lead to misinterpretation of CBC data. Current Interpretive Data was last revised on 2017. Imm gran pct 0.6 % [facility] Comment: Interpretive Data Percent cell count reference ranges are not reported, since discordance with absolute values may lead to misinterpretation of CBC data. Current Interpretive Data was last revised on 2017. Lymphocyte pct 22.9 % [facility] Comment: Interpretive Data Percent cell count reference ranges are not reported, since discordance with absolute values may lead to misinterpretation of CBC data. Current Interpretive Data was last revised on 2017. Monocyte pct 8.4 % [facility] Comment: Interpretive Data Percent cell count reference ranges are not reported, since discordance with absolute values may lead to misinterpretation of CBC data. Current Interpretive Data was last revised on 2017. Eosinophil pct 1.5 % [facility] Comment: [...] 6:52 AM CDT 11/05/2024 7:12 AM CDT Brad Vax[employer] TechnologieserRisk Ident [employer]ERCIAL [employer]INT SAL[employer]AN LAB BLOOD ORDERABLES Fin al Result Performing Organization Address [facility]/ZIP Co de Phone Number NILSA [address] [place] [address] * (ABNORMAL) CBC with auto differential (11/05/2024 6:52 AM CDT) WBC 8.66 3.80 - 9.90 K/cumm Hgb 8.6(L) 11.9 - 15.5 g/dL [facility] Hct 26.6(L) 35.6 - 45.5 % [facility] Plt 215 150 - 400 K/cumm [facility] MPV 10.4 9.1 - 12.3 fL [facility] RBC 2.60(L) 3.90 - 5.20 M/cumm [facility] MCV 102.3(H) 81.3 - 96.4 fL [facility] MCH 33.1 27.1 - 33.3 pg [facility] MCHC 32.3 32.3 - 35.7 g/dL [facility] RDW CV 13.8 11.1 - 14.9 % [facility] RDW SD 51.4(H) 35.7 - 48.1 fL [facility] NRBC abs 0.09(H) 0.00 - 0.01 K/cumm [facility] Blood 11/05/2024 6:52 AM CDT 11/05/2024 7:12 AM CDT [employer] Minder [employer]AN LAB BLOOD ORDERABLES Fin al Result Performing Organization Address City/[facility]/ZIP Co de Phone Number NILSA [address] Department [place] [address] * (ABNORMAL) Basic metabolic panel (11/05/2024 6:52 AM CDT) Pathologist [facility] Sodium 135 135 - 145 mmol/L Potassium, pl 4.5 3.3 - 4.9 mmol/L [facility] Chloride 96(L) 97 - 110 mmol/L [facility] CO2 28 22 - 32 mmol/L [facility] Anion gap 11 2 - 15 mmol/L [facility] BUN 34(H) 6 - 25 mg/dL [facility] Creatinine 5.23(H) 0.60 - 1.10 mg/dL [facility] Glucose 145 70 - 199 mg/dL [facility] [...] 2022. Calcium 9.0 8.5 - 10.3 mg/dL [facility] Blood 11/05/2024 6:52 AM CDT 11/05/2024 7:12 AM CDT us Brad Smallwood NP LAB BLOOD ORDERABLES Fin al Result NILSA [address] [facility] Department [place] [address] * (ABNORMAL) POCT glucose (11/04/2024 9:22 PM CDT) Pathologist [facility] Glucose, POC 223(H) 70 - 199 mg/dL Blood 11/04/2024 9:22 PM CDT 11/04/2024 9:22 PM CDT us Juan J Heller MD LAB POCT ORDERABLES - DEVICE Final Result Performing Organization Address [facility] Co de Phone Number CARLOS ENRI[address] [address] * (ABNORMAL) POCT glucose (11/04/2024 4:33 PM CDT) Glucose, POC 240(H) 70 - 199 mg/dL Glucose comment 1 Use This Result [facility] Glucose comment 2 RN/MD Notified [facility] Blood 11/04/2024 4:33 PM CDT 11/04/2024 4:33 PM CDT Juan J Heller MD LAB POCT ORDERABLES - DEVICE Final Result Performing Organization Address [facility] de Phone Number [address] [address] * POCT glucose (11/04/2024 11:12 AM CDT) Glucose, POC 177 70 - 199 mg/dL Glucose comment 1 RN/MD Notified [facility] Blood 11/04/2024 11:1 2 AM CDT 11/04/2024 11:12 AM CDT Juan J Heller MD LAB POCT ORDERABLES - DEVICE Final Result Performing Organization Address [facility] de Phone Number [address] [address] * POCT glucose (11/04/2024 9:37 AM CDT) Glucose, POC 138 70 - 199 mg/dL Blood 11/04/2024 9:37 AM CDT 11/04/2024 9:37 AM CDT Juan J Heller MD LAB POCT ORDERABLES - DEVICE Final Result Performing Organization Address [facility] Co de Phone Number NILSA [address] [place] [address] * POCT glucose (11/04/2024 6:09 AM CDT) Glucose, POC 190 70 - 199 mg/dL Blood 11/04/2024 6:09 AM CDT 11/04/2024 6:09 AM CDT us Juan J Heller MD LAB POCT ORDERABLES - DEVICE Final Result Performing Organization Address [facility] de Phone Number [address] [address] * (ABNORMAL) eGFR (11/04/2024 4:16 AM CDT) [facility] eGFR 6(L) >=60 mL/min/1. 73 m2 Comment: [...] CDT 11/04/2024 4:35 AM CDT us Brad Smallwood NP LAB BLOOD ORDERABLES Fin al Result Performing Organization Address [facility] Co de Phone Number CARLOS ENRIQUE[address] [place] [address] * Differential, auto (11/04/2024 4:16 AM CDT) Neutrophil abs 4.99 1.50 - 6.50 K/cumm Imm gran abs 0.05 0.00 - 0.10 K/cumm [facility] Lymphocyte abs 2.56 0.80 - 3.30 K/cumm [facility] Monocyte abs 0.70 0.20 - 0.80 K/cumm [facility] Eosinophil abs 0.15 0.00 - 0.50 K/cumm [facility] Basophil abs 0.03 0.00 - 0.10 K/cumm [facility] Neutrophil pct 58.7 % [facility] Comment: Interpretive Data Percent cell count reference ranges are not reported, since discordance with absolute values may lead to misinterpretation of CBC data. Current Interpretive Data was last revised on 2017. Imm gran pct 0.6 % [facility] Comment: Interpretive Data Percent cell count reference ranges are not reported, since discordance with absolute values may lead to misinterpretation of CBC data. Current Interpretive Data was last revised on 2017. Lymphocyte pct 30.2 % [facility] Comment: Interpretive Data Percent cell count reference ranges are not reported, since discordance with absolute values may lead to misinterpretation of CBC data. Current Interpretive Data was last revised on 2017. Monocyte pct 8.3 % [facility] Comment: Interpretive Data Percent cell count reference ranges are not reported, since discordance with absolute values may lead to misinterpretation of CBC data. Current Interpretive Data was last revised on 2017. Eosinophil pct 1.8 % [facility] Comment: [...] 4:16 AM CDT 11/04/2024 4:35 AM CDT [facility] Sebastien Smallwood [employer] SALESMAN LAB BLOOD ORDERABLES Fin al Result Performing Organization Address [facility] Co de Phone Number NILSA [address] [place] [address] * (ABNORMAL) CBC with auto differential (11/04/2024 4:16 AM CDT) [facility] WBC 8.48 3.80 - 9.90 K/cumm Hgb 7.3(L) 11.9 - 15.5 g/dL [facility] Hct 22.2(L) 35.6 - 45.5 % [facility] Plt 196 150 - 400 K/cumm [facility] MPV 10.4 9.1 - 12.3 fL [facility] RBC 2.24(L) 3.90 - 5.20 M/cumm [facility] MCV 99.1(H) 81.3 - 96.4 fL [facility] MCH 32.6 27.1 - 33.3 pg [facility] MCHC 32.9 32.3 - 35.7 g/dL [facility] RDW CV 13.4 11.1 - 14.9 % [facility] RDW SD 48.3(H) 35.7 - 48.1 fL [facility] NRBC abs 0.02(H) 0.00 - 0.01 K/cumm [facility] Blood 11/04/2024 4:16 AM CDT 11/04/2024 4:35 AM CDT Bradmichael Smallwood [employer] LAB BLOOD ORDERABLES Fin al Result Performing Organization Address City/[facility]/ZIP Co de Phone Number NILSA [address] [place] [address] * (ABNORMAL) Basic metabolic panel (11/04/2024 4:16 AM CDT) [facility] Sodium 135 135 - 145 mmol/L Potassium, pl 4.7 3.3 - 4.9 mmol/L [facility] Chloride 95(L) 97 - 110 mmol/L [facility] CO2 25 22 - 32 mmol/L [facility] Anion gap 15 2 - 15 mmol/L [facility] BUN 57(H) 6 - 25 mg/dL [facility] Creatinine 6.58(H) 0.60 - 1.10 mg/dL [facility] Glucose 153 70 - 199 mg/dL [facility] [...] 2022. Calcium 8.3(L) 8.5 - 10.3 mg/dL [facility] Blood 11/04/2024 4:16 AM CDT 11/04/2024 4:35 AM CDT Brad Smallwood NP LAB BLOOD ORDERABLES Fin al Result Performing Organization Address City/[facility] Co de Phone Number [address] [place] [address] * (ABNORMAL) POCT glucose (11/03/2024 8:27 PM CDT) [facility] Glucose, POC 222(H) 70 - 199 mg/dL Glucose comment 1 RN/MD Notified [facility] Blood 11/03/2024 8:27 PM CDT 11/03/2024 8:27 PM CDT Juan J Heller MD LAB POCT ORDERABLES - DEVICE Final Result [address] [place] [address] * (ABNORMAL) POCT glucose (11/03/2024 3:45 PM CDT) Glucose, POC 217(H) 70 - 199 mg/dL Glucose comment 1 Use This Result NILSA RODRIGES Glucose comment 2 RN/MD Notified NILSA RODRIGES Blood 11/03/2024 3:45 PM CDT 11/03/2024 3:45 PM CDT Juan J Heller MD LAB POCT ORDERABLES - DEVICE Final Result NILSA RODRIGES [address] [facility] [place] [address] * MRI Brain WO Contrast (11/03/2024 1:17 [...] Hyperostosis frontalis interna. ORBITS: No acute abnormality. [place] ocular lenses replaced bilaterally. PARANASAL SINUSES AND MASTOIDS: Tiny focus of opacifying material in the dependent left sphenoid sinuses. Slight scattered fluid about the qvjsa-cjwbvje-[id number]-left mastoid air cells. Scattered fluid OTHER: No other significant finding. IMPRESSION: Within the limitations of patient motion artifact, no acute intracranial process with chronic findings as above. THIS IS AN ELECTRONICALLY VERIFIED FINAL REPORT 11/03/2024 1:26 PM - Electronically signed by Redd ARMAS T: Report ID: [id number] Reading Location: [place] [address] Procedure Note Redd Hendrickson MD - 11/03/2024 EXAM DESCRIPTION: MRI BRAIN WO CONTRAST REASON FOR STUDY: Altered mental status of unspecified duration. Noprovision of focal neurologic deficits. No provided history of trauma or inciting and/or aggravating events. No provided past medical or surgical history. TECHNIQUE: Multiplanar imaging includes non-contrasted T1, T2, FLAIR, and diffusion with ADC map sequences. Additional sequence(s) sensitive [employer]. Images stored on PACS. Patient motion artifact [...] Hyperostosis frontalis interna. ORBITS: No acute abnormality. [place] ocular lenses replaced bilaterally. PARANASAL SINUSES AND MASTOIDS: Tiny focus of opacifying material in the dependent left sphenoid sinuses. Slight scattered fluid about the ajtzh-zgugucg-rvuk-left mastoid air cells. Scattered fluid OTHER: No other significant finding. IMPRESSION: Within the limitations of patient motion artifact, no acute intracranial process with chronic findings as above. THIS IS AN ELECTRONICALLY VERIFIED FINAL REPORT 11/03/2024 1:26 PM - Electronically signed by Redd Hendrickson M.D. CHANDA T: Report ID: [id number] Reading Location: [place] [address] Juan J Heller MD IMG MRI PROCEDURES Final Result * (ABNORMAL) POCT glucose (11/03/2024 11:14 AM CDT) Glucose, POC 259(H) 70 - 199 mg/dL Glucose comment 1 Use This Result [facility] Glucose comment 2 RN/ Notified NILSA Blood 11/03/2024 11:1 4 AM CDT 11/03/2024 11:14 AM CDT Juan J Heller MD LAB POCT ORDERABLES - DEVICE Final Result [facility] [address] [facility] Department [place] [address] * POCT glucose (11/03/2024 7:17 AM CDT) Glucose, POC 139 70 - 199 mg/dL Glucose comment 1 Use This Result [facility] Glucose comment 2 RN/MD Notified NILSA Blood 11/03/2024 7:17 AM CDT 11/03/2024 7:17 AM CDT Juan J Heller MD LAB POCT ORDERABLES - DEVICE Final Result Performing Organization Address [facility] Co de Phone Number NILSA [address] [place] [address] * (ABNORMAL) eGFR (11/03/2024 2:33 AM CDT) Pathologist [facility] eGFR 10(L) >=60 mL/min/1. 73 m2 Comment: [...] data was last reviewed 2021. Blood 11/03/2024 2:33 AM CDT 11/03/2024 3:06 AM CDT us Brad Smallwood NP LAB BLOOD ORDERABLES Fin al Result Performing Organization Address City/[facility]/ZIP Co de Phone Number NILSA [address] [place] [address] * Differential, auto (11/03/2024 2:33 AM CDT) Pathologist [facility] Neutrophil abs 5.20 1.50 - 6.50 K/cumm Imm gran abs 0.03 0.00 - 0.10 K/cumm [facility] Lymphocyte abs 2.47 0.80 - 3.30 K/cumm [facility] Monocyte abs 0.66 0.20 - 0.80 K/cumm [facility] Eosinophil abs 0.14 0.00 - 0.50 K/cumm [facility] Basophil abs 0.04 0.00 - 0.10 K/cumm [facility] Neutrophil pct 60.9 % [facility] Comment: [...] revised on 2017. Lymphocyte pct 28.9 % [facility] Comment: Interpretive Data Percent cell count reference ranges are not reported, since discordance with absolute values may lead to misinterpretation of CBC data. Current Interpretive Data was last revised on 2017. Monocyte pct 7.7 % [facility] Comment: [...] 3:03 AM CDT us Brad Sebastien Smallwood NP LAB BLOOD ORDERABLES Fin al Result NILSA [address] [facility] [place] [address] * (ABNORMAL) CBC with auto differential (11/03/2024 2:33 AM CDT) [facility] WBC 8.54 3.80 - 9.90 K/cumm Hgb 7.4(L) 11.9 - 15.5 g/dL [facility] Hct 22.8(L) 35.6 - 45.5 % [facility] Plt 195 150 - 400 K/cumm [facility] MPV 10.8 9.1 - 12.3 fL [facility] RBC 2.25(L) 3.90 - 5.20 M/cumm [facility] MCV 101.3(H) 81.3 - 96.4 fL [facility] MCH 32.9 27.1 - 33.3 pg [facility] MCHC 32.5 32.3 - 35.7 g/dL [facility] RDW CV 13.3 11.1 - 14.9 % [facility] RDW SD 49.3(H) 35.7 - 48.1 fL [facility] NRBC abs 0.00 0.00 - 0.01 K/cumm [facility] Blood 11/03/2024 2:33 AM CDT 11/03/2024 3:03 AM CDT us Brad Sebastien Smallwood [employer] LAB BLOOD ORDERABLES Fin al Result [facility] [address] [facility] [place] [address] * (ABNORMAL) Basic metabolic panel (11/03/2024 2:33 AM CDT) [facility] Sodium 135 135 - 145 mmol/L Potassium, pl 4.1 3.3 - 4.9 mmol/L [facility] Chloride 95(L) 97 - 110 mmol/L [facility] CO2 27 22 - 32 mmol/L [facility] Anion gap 13 2 - 15 mmol/L [facility] BUN 38(H) 6 - 25 mg/dL [facility] Creatinine 4.56(H) 0.60 - 1.10 mg/dL [facility] Glucose 131 70 - 199 mg/dL [facility] [...] 2022. Calcium 8.0(L) 8.5 - 10.3 mg/dL [facility] Blood 11/03/2024 2:33 AM CDT 11/03/2024 3:03 AM CDT Brad Smallwood NP LAB BLOOD ORDERABLES Fin al Result Performing Organization Address City/[facility] Co de Phone Number [address] [place] [address] * POCT glucose (11/02/2024 9:40 PM CDT) Glucose, POC 157 70 - 199 mg/dL Glucose comment 1 RN/MD Notified [facility] Blood 11/02/2024 9:40 PM CDT 11/02/2024 9:40 PM CDT Juan J Heller MD LAB POCT ORDERABLES - DEVICE Final Result Performing Organization Address City/[facility]/ZIP Co de Phone Number [address] [place] [address] * Ammonia (11/02/2024 6:56 PM CDT) Ammonia 24 <=50 mcmol/L Comment: Please note on 2023 the unit of measure changed from mcg/dL to mcmol/L. Current Interpretive Data was last revised on 2023. Blood 11/02/2024 6:56 PM CDT 11/02/2024 7:04 PM CDT Juan J Heller MD LAB BLOOD ORDERABLE S Final Result NILSA [address] [facility] [place] [address] * CT Head WO Contrast (11/02/2024 6:31 [...] Salvador Bronson M.D. KT T: Report ID: [id number] Reading Location: [id number] Procedure Note Salvador Bronson MD - 11/02/2024 [...] Salvador Bronson M.D. KT T: Report ID: [id number] Reading Location: [place] [address] Juan J Heller MD IMG CT PROCEDURES F inal Result * (ABNORMAL) POC Blood Gas and Chemistries, Arterial - (11/02/2024 6:17 PM CDT) [facility] pH, art POC 7.45 7.35 - 7.45 pCO2, art POC 40 35 - 45 mmHg [facility] pO2, art POC 95 83 - 108 mmHg [facility] HCO3, art (Calc) POC 28 20 - 30 mmol/L [facility] Base excess, art POC 4 mmol/L [facility] Comment: Interpretive Data No reference range established. Current interpretive data was last revised 2020. O2 Sat, art (Calc) POC 95 94 - 98 % [facility] Oxy Hgb, art POC 95.4(H) 90.0 - 95.0 % [facility] Met Hgb, art POC 0.0 0.0 - 1.9 % [facility] Carboxy Hgb, art POC 0.0 0.0 - 2.9 % [facility] Hemoglobin, art POC 8.8(L) 11.9 - 15.5 g/dL [facility] Blood 11/02/2024 6:17 PM CDT 11/02/2024 6:17 PM CDT Juan J Heller MD LAB POCT ORDERABLES - DEVICE Final Result NILSA RODRIGES [address] [facility] [place] [address] * POCT glucose (11/02/2024 5:13 PM CDT) Glucose, POC 150 70 - 199 mg/dL Glucose comment 1 RN/ Notified [facility] Blood 11/02/2024 5:13 PM CDT 11/02/2024 5:13 PM CDT Juan J Heller MD LAB POCT ORDERABLES - DEVICE Final Result Performing Organization Address [facility] Co de Phone Number [address] [place] [address] * POCT glucose (11/02/2024 12:32 PM CDT) Glucose, POC 173 70 - 199 mg/dL Glucose comment 1 RN/ Notified [facility] Blood 11/02/2024 12:3 2 PM CDT 11/02/2024 12:32 PM CDT Juan J Heller MD LAB POCT ORDERABLES - DEVICE Final Result Performing Organization Address [facility] Co de Phone Number [address] [place] [address] * POCT glucose (11/02/2024 7:50 AM CDT) Glucose, POC 184 70 - 199 mg/dL Glucose comment 1 RN/ Notified [facility] Blood 11/02/2024 7:50 AM CDT 11/02/2024 7:50 AM CDT Juan J Heller MD LAB POCT ORDERABLES - DEVICE Final Result Performing Organization Address [facility] Co de Phone Number [address] [place] [address] * Hepatitis B surface antibody (immune status) Blood (11/02/2024 7:14 AM CDT) [facility] HBsAb (immune status) Reactive Comment: Interpretive Data [...] HBsAb (immune status) index 628.0 mIUnits/m L [facility] Blood 11/02/2024 7:14 AM CDT 11/02/2024 7:32 AM CDT Rohan Funes MD LAB MICROBIOLOGY - GENERAL ORDERABLES Final Result Performing Organization Address City/[facility] Co de Phone Number [address] [place] [address] [place] [address] * Hepatitis B Surface Antigen Blood (11/02/2024 7:14 AM CDT) Pathologist [facility] HepBsAg Nonreactive Nonreactive Blood 11/02/2024 7:14 AM CDT 11/02/2024 7:32 AM CDT Rohan Funes MD LAB MICROBIOLOGY - GENERAL ORDERABLES Final Result Performing Organization Address [facility] Co de Phone Number [address] [address] * (ABNORMAL) eGFR (11/02/2024 3:48 AM CDT) Pathologist [facility] eGFR 8(L) >=60 mL/min/1. 73 m2 Comment: [...] 4:01 AM CDT us Brad Sebastien Smallwood [employer] LAB BLOOD ORDERABLES Fin al Result [facility] [address] [facility] [place] [address] * Differential, auto (11/02/2024 3:48 AM CDT) Neutrophil abs 5.44 1.50 - 6.50 K/cumm Imm gran abs 0.03 0.00 - 0.10 K/cumm [facility] Lymphocyte abs 2.16 0.80 - 3.30 K/cumm [facility] Monocyte abs 0.62 0.20 - 0.80 K/cumm [facility] Eosinophil abs 0.12 0.00 - 0.50 K/cumm [facility] Basophil abs 0.02 0.00 - 0.10 K/cumm [facility] Neutrophil pct 64.9 % [facility] Comment: [...] revised on 2017. Lymphocyte pct 25.7 % [facility] Comment: Interpretive Data Percent cell count reference ranges are not reported, since discordance with absolute values may lead to misinterpretation of CBC data. Current Interpretive Data was last revised on 2017. Monocyte pct 7.4 % [facility] Comment: Interpretive Data Percent cell count reference ranges are not reported, since discordance with absolute values may lead to misinterpretation of CBC data. Current Interpretive Data was last revised on 2017. Eosinophil pct 1.4 % [facility] Comment: Interpretive Data Percent cell count reference ranges are not reported, since discordance with absolute values may lead to misinterpretation of CBC data. Current Interpretive Data was last revised on 2017. Basophil pct 0.2 % [facility] Comment: Interpretive Data Percent cell count reference ranges are not reported, since discordance with absolute values may lead to misinterpretation of CBC data. Current Interpretive Data was last revised on 2017. Blood 11/02/2024 3:48 AM CDT 11/02/2024 4:01 AM CDT us Brad Tabarmando Smallwood [employer] LAB BLOOD ORDERABLES Fin al Result [facility] [address] [facility] Department [place] [address] * (ABNORMAL) CBC with auto differential (11/02/2024 3:48 AM CDT) WBC 8.39 3.80 - 9.90 K/cumm Hgb 7.2(L) 11.9 - 15.5 g/dL [facility] Hct 22.3(L) 35.6 - 45.5 % [facility] Plt 186 150 - 400 K/cumm [facility] MPV 10.9 9.1 - 12.3 fL [facility] RBC 2.20(L) 3.90 - 5.20 M/cumm [facility] MCV 101.4(H) 81.3 - 96.4 fL [facility] MCH 32.7 27.1 - 33.3 pg [facility] MCHC 32.3 32.3 - 35.7 g/dL [facility] RDW CV 13.5 11.1 - 14.9 % [facility] RDW SD 49.7(H) 35.7 - 48.1 fL [facility] NRBC abs 0.00 0.00 - 0.01 K/cumm [facility] Blood 11/02/2024 3:48 AM CDT 11/02/2024 4:01 AM CDT [facility] [employer] LAB BLOOD ORDERABLES Fin al Result Performing Organization Address City/[facility] Co de Phone Number [address] [address] * Folate (11/02/2024 3:48 AM CDT) Pathologist [facility] Folic acid 7.0 >=5.0 ng/mL Blood 11/02/2024 3:48 AM CDT 11/02/2024 4:01 AM CDT [facility] [employer] LAB BLOOD ORDERABLES Fin al Result Performing Organization Address [facility] de Phone Number [address] [address] * (ABNORMAL) Basic metabolic panel (11/02/2024 3:48 AM CDT) Pathologist [facility] Sodium 135 135 - 145 mmol/L Potassium, pl 4.6 3.3 - 4.9 mmol/L [facility] Chloride 99 97 - 110 mmol/L [facility] CO2 24 22 - 32 mmol/L [facility] Anion gap 12 2 - 15 mmol/L [facility] BUN 64(H) 6 - 25 mg/dL [facility] Creatinine 5.43(H) 0.60 - 1.10 mg/dL [facility] Glucose 227(H) 70 - 199 mg/dL [facility] [...] 2022. Calcium 9.0 8.5 - 10.3 mg/dL [facility] Blood 11/02/2024 3:48 AM CDT 11/02/2024 4:01 AM CDT [facility] [employer] LAB BLOOD ORDERABLES Fin al Result Performing Organization Address City/[facility] Co de Phone Number [address] [place] [address] * Lactate (11/01/2024 10:05 PM CDT) Lactate 1.4 0.7 - 2.0 mmol/L Blood 11/01/2024 10:0 5 PM CDT 11/01/2024 10:15 PM CDT [facility] BLOOD [facility]ABLES Fin al Result Performing Organization Address [facility] Co de Phone Number [address] [address] * (ABNORMAL) Erythrocyte sedimentation rate (11/01/2024 10:05 PM CDT) Erythrocyte sedimentation rate 43(H) 1 - 30 mm/hr Blood 11/01/2024 10:0 5 PM CDT 11/01/2024 10:[address] [facility] LAB BLOOD ORDERABLES Fin al Result Performing Organization Address City/[facility] Co de Phone Number [address] [place] [address] * CRP (acute phase) (11/01/2024 10:05 PM CDT) CRP 3.6 <=10.0 mg/L Blood 11/01/2024 10:0 5 PM CDT 11/01/2024 10:15 PM CDT [facility] [employer] LAB BLOOD ORDERABLES Fin al Result Performing Organization Address City/[facility]/ZIP Co de Phone Number [address] [address] * Phosphorus (11/01/2024 10:05 PM CDT) Phosphorus, pl 4.3 2.3 - 4.5 mg/dL Blood 11/01/2024 10:0 5 PM CDT 11/01/2024 10:15 PM CDT [facility] [employer] LAB BLOOD ORDERABLES Fin al Result Performing Organization Address [facility] de Phone Number [address] [address] * Magnesium (11/01/2024 10:05 PM CDT) [facility] Magnesium 1.5 1.4 - 2.5 mg/dL Blood 11/01/2024 10:0 5 PM CDT 11/01/2024 10:15 PM CDT [facility] [employer] LAB BLOOD ORDERABLES Fin al Result Performing Organization Address [facility] de Phone Number [address] [address] * (ABNORMAL) Hemoglobin A1c (11/01/2024 10:05 PM CDT) Hgb A1C 7.1(H) 4.0 - 5.6 % Estimated Average Glucose 157 mg/dL [facility] Comment: The ADA recommends reporting an estimated Average Glucose (eAG) with all Hemoglobin A1c results using the equation derived from a study of 507 normal and diabetic adults. Minority populations were underrepresented and children were not included. (Diabetes Care 31:2691-0890, 2008). The eAG is not equivalent to a fasting glucose. Blood 11/01/2024 10:0 5 PM CDT 11/01/2024 10:15 PM CDT [facility] [employer] LAB BLOOD ORDERABLES Fin al Result Performing Organization Address City/[facility] Co de Phone Number [address] [address] * Vitamin B12 (11/01/2024 10:05 PM CDT) Vitamin B12 584 230 - 1,250 pg/mL Blood 11/01/2024 10:0 5 PM CDT 11/01/2024 10:[address] [facility] LAB BLOOD ORDERABLES Fin al Result Performing Organization Address [facility] de Phone Number [address] [address] * (ABNORMAL) Lipid panel (11/01/2024 10:05 PM CDT) Pathologist [facility] Cholesterol 98 30 - 199 mg/dL Comment: [...] revised on 2018. Triglycerides 147 <=149 mg/dL [facility] Comment: Interpretive Data Ages [...] last revised on 2018. Chol/HDL ratio 3 [facility] Blood 11/01/2024 10:0 5 PM CDT 11/01/2024 10:15 PM CDT Brad Smallwood NP LAB BLOOD ORDERABLES Fin al Result Performing Organization Address [facility] Co de Phone Number [address] [address] * (ABNORMAL) POCT glucose (11/01/2024 9:59 PM CDT) Glucose, POC 217(H) 70 - 199 mg/dL Glucose comment 1 Use This Result [facility] Glucose comment 2 RN/MD Notified [facility] Blood 11/01/2024 9:59 PM CDT 11/01/2024 9:59 PM CDT Des Lopez MD LAB POCT ORDERABLES - DEVICE F inal Result Performing Organization Address [facility] Co de Phone Number [address] [address] * (ABNORMAL) Urinalysis reflex to microscopic and culture Urine (11/01/2024 7:23 PM CDT) Color, ur Straw Yellow Clarity, ur Clear Clear [facility] Specific gravity, ur 1.007 1.003 - 1.030 [facility] pH, urine 7.5 [facility] Comment: Interpretive Data U rine pH is affected by diet, medications, systemic acid-base disturbances, and renal tubular function. pH may affect urinary stone formation. For example, urine pH below 6.0 may help reduce the tendency for calcium phosphate stones and pH greater than 6.0 may reduce the tendency for uric acid stone formation. Source: Membreno [employer] Current Interpretive Data was last revised on 2017 Protein, ur ql 1+(A) Negative [facility] Glucose, ur ql 3+(A) Negative [facility] Ketones, ur Negative Negative [facility] Bilirubin, ur Negative Negative [facility] Blood, ur Negative Negative [facility] Urobilinogen, ur <2.0 <2.0 mg/dL [facility] Nitrite, ur Negative Negative [facility] Leukocyte esterase, ur 4+(A) Negative [facility] UA reflex comment Reflex to microscopic UA will be performed. [facility] Urine 11/01/2024 7:23 PM CDT 11/01/2024 7:37 PM CDT Tahmina Palencia MD LAB MICROBIOLOGY - GEN ERAL ORDERABLES Final Result Performing Organization Address [facility] Co de Phone Number [address] [place] [address] * (ABNORMAL) Urinalysis, microscopic only (11/01/2024 7:23 PM CDT) WBC, ur >50(A) 0 - 5 /HPF RBC, ur 0-2 0 - 2 /HPF [facility] Epithelial cells, squamous, ur 1-5 0 - 5 /HPF [facility] Culture Reflex Comment Reflex to urine culture will be performed. [facility] Urine 11/01/2024 7:23 PM CDT 11/01/2024 7:37 PM CDT Tahmina Palencia MD LAB URINE ORDERABLES F inal Result Performing Organization Address [facility] Co de Phone Number [address] [place] [address] * (ABNORMAL) Urine culture Urine (11/01/2024 7:23 PM CDT) Report Final Report: Greater than or equal to 100,000 colonies/mL of Proteus mirabilis Plus growth of clinically insignificant bacterial shruti. (.) Comment:Testing performed by : [facility], [address] [facility] [place]., [address] Organism PROTEUS MIRABILIS NILSA Organism PLUS GROWTH OF CLINICALLY INSIGNIFICANT SHRUTI. NILSA Urine 11/01/2024 7:23 PM CDT 11/02/2024 12:58 AM CDT Narrative NILSA - 11/04/2024 10:48 AM CDT Urine culture reflexed based upon urinalysis results. Testing performed by [facility] Microbiology Laboratory ([phone]) Organism Antibiotic Method Susceptibility Proteus mirabilis Ampicillin [...] - GEN ERAL ORDERABLES Final Result NILSA [address] [facility] [place] [address] * CT Chest Abdomen Pelvis W Contrast [...] Salvador Bronson M.D. KT T: Report ID: [id number] Reading Location: [id number] Procedure Note Salvador Bronson MD - 11/01/2024 [...] Salvador Bronson M.D. KT T: Report ID: [id number] Reading Location: [place] [address] us Tahmina Palencia MD IMG CT PROCEDURES [...] and well aerated. ORBITS: No acute abnormality. [place] ocular lenses replaced bilaterally. OTHER: No other significant abnormality. INTRACRANIAL VESSELS [place] OF [place]: The anterior, middle, posterior cerebral [...] Redd Hendrickson M.D. CHANDA T: Report ID: [id number] Reading Location: [place] [address] Procedure Note Redd Hendrickson MD - 11/01/2024 [...] and well aerated. ORBITS: No acute abnormality. [place] ocular lenses replaced bilaterally. OTHER: No other significant abnormality. INTRACRANIAL VESSELS [place] OF [place]: The anterior, middle, posterior cerebral [...] signed by Redd ARMAS T: Report ID: [id number] Reading Location: [id number] us Tahmina Palencia MD IMG CT PROCEDURES Bless[place] l Result * (ABNORMAL) Troponin T high-sensitivity 2-hour (11/01/2024 4:34 PM CDT) Trop T hs 53(H) <=14 ng/L Comment: Interpretive Data For further hscTnT resources including the diagnostic algorithm and an aid in interpretation, copy and paste this link: https://nrl.testcatalog.org/show/hsTrop Current Interpretive Data last revised 2020. Trop T hs delta -4 ng/L NILSA Trop T hs interp Insignificant NILSA Blood 11/01/2024 4:34 PM CDT 11/01/2024 4:45 PM CDT us Markie Sofia MD LAB BLOOD ORDERABLES F inal Result NILSA [address] [facility] [place] [address] * CT Head WO Contrast [...] Shayne Landaverde M.D. AM T: Report ID: [id number] Reading Location: [id number] Procedure Note Shayne Landaverde MD - 11/01/2024 [...] 3:04 PM - Electronically signed by Shayne Ladnaverde M.D., AM T: Report ID: [id number] Reading Location: [place] [address] PROCEDURES Final Re sult * XR [...] - Electronically signed by James Javier M.D. T: Report ID: [id number] Reading Location: [id number] Procedure Note James Javier MD - 11/01/2024 [...] James Javier M.D. MZ T: Report ID: [id number] Reading Location: [place] [address] Tahmina Palencia MD IMG XR PROCEDURES [place] [...] ORDERABLES F inal Result Performing Organization Address [facility] de Phone Number NILSA [address] [place] [address] * (ABNORMAL) eGFR (11/01/2024 2:03 PM CDT) Pathologist [facility] eGFR 9(L) >=60 mL/min/1. 73 m2 Comment: [...] ORDERABLES F inal Result Performing Organization Address [facility] Co de Phone Number NILSA [address] [place] [address] * (ABNORMAL) Differential, auto (11/01/2024 2:03 PM CDT) Pathologist [facility] Neutrophil abs 7.67(H) 1.50 - 6.50 K/cumm Imm gran abs 0.05 0.00 - 0.10 K/cumm [facility] Lymphocyte abs 1.67 0.80 - 3.30 K/cumm [facility] Monocyte abs 0.43 0.20 - 0.80 K/cumm [facility] Eosinophil abs 0.11 0.00 - 0.50 K/cumm [facility] Basophil abs 0.02 0.00 - 0.10 K/cumm [facility] Neutrophil pct 77.1 % [facility] Comment: Interpretive Data Percent cell count reference ranges are not reported, since discordance with absolute values may lead to misinterpretation of CBC data. Current Interpretive Data was last revised on 2017. Imm gran pct 0.5 % [facility] Comment: Interpretive Data Percent cell count reference ranges are not reported, since discordance with absolute values may lead to misinterpretation of CBC data. Current Interpretive Data was last revised on 2017. Lymphocyte pct 16.8 % [facility] Comment: Interpretive Data Percent cell count reference ranges are not reported, since discordance with absolute values may lead to misinterpretation of CBC data. Current Interpretive Data was last revised on 2017. Monocyte pct 4.3 % [facility] Comment: Interpretive Data Percent cell count reference ranges are not reported, since discordance with absolute values may lead to misinterpretation of CBC data. Current Interpretive Data was last revised on 2017. Eosinophil pct 1.1 % [facility] Comment: Interpretive Data Percent cell count reference ranges are not reported, since discordance with absolute values may lead to misinterpretation of CBC data. Current Interpretive Data was last revised on 2017. Basophil pct 0.2 % [facility] Comment: Interpretive Data Percent cell count reference ranges are not reported, since discordance with absolute values may lead to misinterpretation of CBC data. Current Interpretive Data was last revised on 2017. Blood 11/01/2024 2:03 PM CDT 11/01/2024 2:05 PM CDT us Tahmina Palencia MD LAB BLOOD ORDERABLES F inal Result NILSA RODRIGES [address] [facility] [place] [address] * (ABNORMAL) Pro B-type natriuretic peptide (11/01/2024 [...] as advanced age. - References: 1. Jordan JL et.al. Eur Heart J. 2006:27:330-337. 2. Melisa RW, Audelia MTZ. J. AM Yonny Cardiol: Cardiovasc Imag. 2009;2: 216- 225. Interpretive Data Last Revised Date: 2018. Blood 11/01/2024 2:03 PM CDT 11/01/2024 2:05 PM CDT us Tahmina Palencia MD LAB BLOOD ORDERABLES F inal Result JPGATC [address] [facility] [place] [address] * (ABNORMAL) CBC with auto differential (11/01/2024 2:03 PM CDT) Pathologist [facility] WBC 9.95(H) 3.80 - 9.90 K/cumm Hgb 8.8(L) 11.9 - 15.5 g/dL [facility] Hct 27.2(L) 35.6 - 45.5 % [facility] Plt 207 150 - 400 K/cumm [facility] MPV 10.6 9.1 - 12.3 fL [facility] RBC 2.66(L) 3.90 - 5.20 M/cumm [facility] MCV 102.3(H) 81.3 - 96.4 fL [facility] MCH 33.1 27.1 - 33.3 pg [facility] MCHC 32.4 32.3 - 35.7 g/dL [facility] RDW CV 13.4 11.1 - 14.9 % [facility] RDW SD 50.4(H) 35.7 - 48.1 fL [facility] NRBC abs 0.00 0.00 - 0.01 K/cumm [facility] Blood 11/01/2024 2:03 PM CDT 11/01/2024 2:05 PM CDT Tahmina Palencia MD LAB BLOOD ORDERABLES F inal Result [facility] [address] [facility] [place] [address] * (ABNORMAL) Comprehensive metabolic panel (11/01/2024 2:03 PM CDT) Sodium 133(L) 135 - 145 mmol/L Potassium, pl 4.3 3.3 - 4.9 mmol/L [facility] Chloride 95(L) 97 - 110 mmol/L [facility] CO2 23 22 - 32 mmol/L [facility] Anion gap 15 2 - 15 mmol/L [facility] BUN 55(H) 6 - 25 mg/dL [facility] Creatinine 4.86(H) 0.60 - 1.10 mg/dL [facility] Glucose 290(H) 70 - 199 mg/dL [facility] [...] 2022. Calcium 9.2 8.5 - 10.3 mg/dL [facility] Bilirubin, total 0.2 0.1 - 1.2 mg/dL [facility] Protein, pl 7.0 6.5 - 8.5 g/dL [facility] Albumin 3.7 3.5 - 5.0 g/dL [facility] Alk phos 116 40 - 130 Units/L [facility] ALT 58(H) 7 - 45 Units/L [facility] AST 26 10 - 45 Units/L [facility] Blood 11/01/2024 2:03 PM CDT 11/01/2024 2:05 PM CDT us Tahmina Palencia MD LAB BLOOD ORDERABLES F inal Result NILSA [address] [facility] [place] [address] * ECG 12 lead (11/01/2024 1:59 PM CDT) [facility] Ventricular Rate EKG/Min 73 BPM [facility] Atrial Rate 73 BPM [facility] DE-Interval (MSEC) 146 ms [facility] QRS-Interval (MSEC) 58 ms [facility] QT-Interval (MSEC) 396 ms [facility] QTc 436 ms [facility] P [place] 47 degrees [facility] R [place] 2 degrees [facility] T [place] 66 degrees [facility] Diagnosis Normal sinus rhythm Normal ECG When compared with ECG of 12-JUL-2024 11:48, No significant change was found Confirmed by DIAMOND GUTIERREZ M.D. ([id number]) on 11/02/2024 11:07:33 PM [facility] 11/01/2024 1:59 PM CDT 11/02/2024 11:07 PM CDT us Tahmina Palencia MD ECG ORDERABLES Final Result [facility] * (ABNORMAL) Urinalysis reflex to microscopic and culture Urine, clean voided (10/31/2024 9:47 AM CDT) Color, ur Mikayla Yellow Comment:Testing performed by : [address] [address] Clarity, ur Turbid(A) Clear NILSA Comment:Testing performed by : [address] [address] Specific gravity, ur 1.008 1.003 - 1.030 NILSA Comment:Testing performed by : [address] [address] pH, urine 8.0 NILSA Comment: Interpretive Data U rine pH is affected by diet, medications, systemic acid-base disturbances, and renal tubular function. pH may affect urinary stone formation. For example, urine pH below 6.0 may help reduce the tendency for calcium phosphate stones and pH greater than 6.0 may reduce the tendency for uric acid stone formation. Source: [facility] Event 38 [employer] Current Interpretive Data was last revised on 2017 Testing performed by: [address] [address] Protein, ur ql 2+(A) Negative NILSA Comment:Testing performed by : [address] [address] Glucose, ur ql 3+(A) Negative NILSA Comment:Testing performed by : [address] [address] Ketones, ur Negative Negative NILSA Comment:Testing performed by : [address] [address] Bilirubin, ur Negative Negative NILSA Comment:Testing performed by : [address] [address] Blood, ur Trace(A) Negative NILSA Comment:Testing performed by : [address] [address] Urobilinogen, ur <2.0 <2.0 mg/dL NILSA Comment:Testing performed by : [address] [address] Nitrite, ur Negative Negative NILSA Comment:Testing performed by : [address] [address] Leukocyte esterase, ur 4+(A) Negative NILSA RODRIGES Comment:Testing performed by : [address] [address] UA reflex comment Reflex to microscopic UA will be performed. NILSA Comment:Testing performed by : [address] [address] Urine, clean voided 10/31/2024 9:47 AM CDT 10/31/2024 9:50 AM CDT Cherelle Corcoran MD LAB MICROBIOLOGY - GENERAL ORDERABLES Final Result Performing Organization Address [facility] Co de Phone Number NILSA RODRIGES [facility] Department [place] [address] * (ABNORMAL) Urinalysis, microscopic only (10/31/2024 9:47 AM CDT) WBC, ur 6-10(A) 0 - 5 /HPF Comment:Testing performed by : [address] [address] RBC, ur 0-2 0 - 2 /HPF NILSA Comment:Testing performed by : [address] [address] Bacteria, ur Trace(A) NILSA Comment:Testing performed by : [address] [address] Culture Reflex Comment Reflex conditions for urine culture (WBC >10) not met. NILSA RODRIGES Comment:Testing performed by : [address] [address] Urine, clean voided 10/31/2024 9:47 AM CDT 10/31/2024 9:50 AM CDT Cherelle Corcoran MD LAB URINE ORDERAB LES Final Result CARLOS ENRIQUENER [facility] [address] [facility] Department [place] [address] * XR Chest PA Lateral 2 Views [...] Edwardo Louis M.D. RW: ADAMARIS Report ID: [id number] Reading Location: [id number] Procedure Note Edwardo Louis MD - 10/24/2024 [...] Edwardo Louis M.D. RW: ADAMARIS Report ID: [id number] Reading Location: [id number] Cherelle Corcoran MD IMG XR PROCEDURES Final Result * CT CORONARY CALCIUM SCORING (10/17/2024 9:30 AM CDT) Anatomical Region Laterality Modality Chest Computed Tomogra phy Historical Provider IMG CT PROCEDURES Final R esult * POCT glucose (09/13/2024 9:47 AM CDT) Glucose, POC 176 70 - 199 mg/dL Glucose comment 1 RN/MD Notified [facility] Blood 09/13/2024 9:47 AM CDT 09/13/2024 9:47 AM CDT Jaya Grier MD LAB POCT ORDERABLES - DEVICE Fin al Result NILSA [address] Department [place] [address] * Surgical pathology (09/13/2024 9:28 AM CDT) Tissue specimen (specimen) (Esophageal biopsy) 09/13/2024 9:28 AM CDT Comment:Cold bx Narrative PATHOLOGY [facility] - 09/14/2024 1:55 PM CDT [facility] Department of Pathology [address] [place] [id number] Note to Patients: This report may contain [...] the details. Final Report Patient Name: SIXTO CHAKRABORTYJonel : 1950 (Age: 73) Gender: F Address: [address] [place] [address] Hospital #: [id number] Service: Gastro Location: Patient Type: B [facility] OUT[facility] Taken: 09/13/2024 Received: 09/13/2024 [...] Jar 0. jjb/09/13/2024 13:20 CAMILA Johnson, PA (ASCP) Microscopic slide review and interpretation for this case was performed at [facility], Department of Surgical Pathology, [address] [facility], [id number], [place] [address] CLIA # [id number] us Jaya Grier MD LAB PATHOLOGY ORDERABLES Final R esult PATHOLOGY [facility] * EGD (09/13/2024 9:17 AM CDT) Anatomical Region Laterality Modality Other Narrative Procedure Note Jaya Grier MD - 09/13/2024 9:17 AM CDT [facility] GI ENDOSCOPY Patient Name: Sixto Chakraborty Procedure Date: 09/13/2024 9:17 AM Date of : 1950 Admit Type: Outpatient Age: 73 Gender: Female Attending MD: Jaya Grier M.D. Room: [facility] ENDOSCOPY ROOM 03 Note Status: Finalized [...] On: 09/13/2024 9:17 AM Recognized by the [place] [employer] for promoting quality in endoscopy us Jaya Grier MD ENDOSCOPY PROCEDURES Final Resul t * (ABNORMAL) POC Blood Gas and Chemistries, Venous - (09/13/2024 8:54 AM CDT) pH,chris POC 7.34 7.32 - 7.43 pCO2, chris POC 51(H) 40 - 50 mmHg NILSA RODRIGES pO2,chris POC 22 mmHg [facility] Comment: Interpretive Data No reference range established. Current interpretive data was last revised 2020. HCO3, chris (Calc) POC 27 20 - 30 mmol/L [facility] Base excess, chris POC 1 mmol/L [facility] Comment: Interpretive Data No reference range established. Current interpretive data was last revised 2020. Hemoglobin, chris POC 10.9(L) 11.9 - 15.5 g/dL [facility] Hematocrit, chris POC 32.0(L) 35.6 - 45.5 % [facility] Sodium, chris POC 141 135 - 145 mmol/L [facility] Potassium, chris POC 4.4 3.3 - 4.9 mmol/L [facility] Comment: Interpretive Data This method is not able to assess for hemolysis, which may falsely increase potassium concentrations. If further testing is needed to evaluate this result, consider in-laboratory plasma potassium. Current Interpretive Data was last revised on 2022. Glucose, chris POC 170 70 - 199 mg/dL [facility] Ionized Calcium, chris POC 4.90 4.50 - 5.10 mg/dL [facility] Blood 09/13/2024 8:54 AM CDT 09/13/2024 8:54 AM CDT Jaya Grier MD LAB POCT ORDERABLES - DEVICE Fin al Result [facility] [address] [facility] Department [place] [address] * DE INJECTION SINGLE/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 TRIGGER POINT 1/2 MUSCLES (09/08/2024 9:00 AM [...] well with no immediate complications Brook Muhammad COMMERCIAL PRINT SALESMAN IN CLINIC/BEDSIDE ORDERABLE S Final Result * CT Head WO Contrast (09/07/2024) Anatomical Region Laterality Modality Head and Neck N/A Computed Tomogra phy Historical Provider IMG CT PROCEDURES Final R esult * XR Shoulder Right 2 or More Views (09/07/2024) Anatomical Region Laterality Modality Upper Extremities, Shoulder Right Radi ographic Imaging Result [facility] Historical Provider IMG XR PROCEDURES Final R esult * POCT hemoglobin A1c (08/22/2024 8:55 AM ACCOUNTS PAYABLE SPECIALIST) Hemoglobin A1C, POC 7.7 4.0 - 5.6 % Blood 08/22/2024 8:55 AM ACCOUNTS PAYABLE SPECIALIST Result [facility] Smith Gibbs MD POINT OF CARE TEST ORDERABLE S Final Result * Diabetic Eye Exam (07/27/2024 12:37 PM ACCOUNTS PAYABLE SPECIALIST) Result [facility] Historical Provider HEALTH MAINTENANCE Final Result * Colonoscopy (03/01/2024 8:49 AM CDT) Anatomical Region Laterality Modality Other Narrative Procedure Note Jaya Grier MD - 03/01/2024 8:49 AM CDT [facility] GI ENDOSCOPY Patient Name: Sixto Chakraborty Procedure Date: 03/01/2024 8:49 AM Date of : 1950 Admit Type: Outpatient Age: 73 Gender: Female Attending MD: Jaya Grier M.D. Room: [facility] ENDOSCOPY ROOM 06 Note [...] The scope was passed under direct vision.The [id number]-[id number] colonoscope was introduced through theanus and advanced [...] On: 03/01/2024 8:49 AM Recognized by the [place] [employer] for promoting quality [...] taking vitamin-D. History of end-stage renal disease. Teradata Architect/Model: [employer] A (S/N [id number]) CLINICAL INFORMATION: Current height: 61 inches Maximum [...] Rafaela Paulino M.D. TW: TW Report ID: [id number] Reading Location: [place] [address] Procedure Note Rafaela Paulino MD - 01/22/2024 EXAM DESCRIPTION: DEXA AXIAL SKELETON BONE DENSITY 1 OR MORE SITES REASON FOR STUDY: 73 y/o year old F with given history of: Post menopausal status. History of taking vitamin-D. History of end-stagerenal disease. Teradata Architect/Model: [employer] A (S/N [id number]) CLINICAL INFORMATION: Current height: 61 inches Maximum [...] Rafaela Paulino M.D. TW: FAIZAN Report ID: [id number] Reading Location: [id number] Cherelle Corcoran MD IMG DXA PROCEDURE S [...] age 40, based on guidelines of the [place] [employer] (ACR Practice Parameter for the Performance of Screening and Diagnostic Mammography) and [place] [employer]etric[employer]nec[employer]. For women [...] 19. Hep B core IgM Nonreactive Nonreactive [facility] Comment: Interpretive Data If HepB Core IgM Ab is reported as Equivocal, a new sample should be drawn in two weeks for testing. Current interpretive data was last revised on 19. Hep C Ab Nonreactive Nonreactive [facility] Comment: Interpretive Data Nonreactive: Antibodies to HCV [...] last revised on 2019. HepBsAg Nonreactive Nonreactive [facility] Blood 10/15/2023 6:50 AM CDT 10/15/2023 7:07 AM CDT Jimbo Strauss MD LAB MICROBIOLOGY - GENERAL FREDDY HALEY Final Result Performing Organization Address [facility]/ZIP Co de Phone Number NILSA [address] [address] Department [place] [address] * (ABNORMAL) Albumin Creatinine Ratio, Urine (10/10/2022 11:39 AM CDT) Albumin Ur 3,240.2 mg/L NILSA Comment: Interpretive Data No reference range established. Current interpretive data was last revised 2018. Testing performed by: [address] [address] Creatinine Ur 74.8 mg/dL NILSA Comment: Interpretive Data No reference range established. Current interpretive data was last revised 2018. Testing performed by: [address] [address] Albumin Creatinine Ratio, Ur 4,332(H) 1 - 29 mg/g NILSA Comment:Testing performed by : [address] [address] Urine 10/10/2022 11:3 9 AM CDT 10/10/2022 1:45 PM CDT Markie Ryan MD LAB URINE ORDERABLES Final Re sult Performing Organization Address City/[facility] Co de Phone Number NILSA [address] [facility] Department [place] [address] from Last 3 Months or Most Recently Relevant to Health Maintenance Insurance MEDICARE [facility] Address: [id number] [place] [id number] MEDICARE IDPA MEDICARE IDPA MEDICARE [facility] Address: [address] [address] [place] [address] IDFL Advance Directives For more information, please contact: [phone] Documents on File Type Date Recorded Patient Cigar Bander Hand Expl anation ADVANCE DIRECTIVE 07/15/2024 7:58 AM Power of [employer] ADVANCE DIRECTIVE 02/02/2024 12:34 PM Erik r of [employer] * Full Code (Latest Code Status on File) Date Activated Date Inactivated Comments 11/01/2024 9:38 PM 11/05/2024 9:36 PM * Full Code Date Activated Date Inactivated Comments 04/20/2024 12:03 AM 04/23/2024 11:32 PM * Full Code Date Activated Date Inactivated Comments 01/31/2024 12:21 PM 02/01/2024 10:58 PM * Full Code Date Activated Date Inactivated Comments 01/30/2024 5:12 AM 01/31/2024 12:21 PM * Full Code Date Activated Date Inactivated Comments 01/06/2024 12:18 AM 01/07/2024 1:18 AM Healthcare Agents on File Name Relationship Healthcare Agent Relationship Communication Areli Gayle Daughter Health Care Agent Care Teams System Programmer Relationship Specialty Start Date End Date Cherelle Corcoran MD PCP - General Family Medicine 08/30/19 Mark Queen MD Consulting Physician Infectious Diseases 01/10/20 Rudolph Welch MD [address] [facility] [address] [place] [address] Consulting Physician Infectious Diseases 12/05/22 Markie Ryan MD [address] [facility] [address] [place] [address] Consulting Physician Nephrology 12/05/22 [place] [address] [place] [address] [place] [address] Consulting Physician Nephrology 10/22/23 Jaya Grier MD [address] [facility] [address] [place] [address] Consulting Physician Gastroenterology 02/01/24 Edgardo Kauffman MD [address] [facility] [address] [facility] [address] [place] [address] Surgeon Vascular Surgery 07/15/24 Macrina Mike RN [address] [place] [address] [address] [place] [address] Granular Operator 11/07/24
--- OUTSIDE RECORDS SUMMARY | 2024-11-09 10:03 | XMS_ITS | Encounter Summary ---
Author Organization [facility] Healthcare Address [address] [place] [address] Care Team Providers Care Streetcar Operator Name Role Phone Cherelle Corcoran MD Primary Care Pro vider Mark Queen MD Unavailable [phone] Rudolph Welch MD Unavailable [phone] Markie Ryan MD Unavailable Jimbo Strauss MD Unavailable [phone] Jaya Grier MD Unavailable Edgardo Kauffman MD Unavailable [phone] Macrina Mike RN Unavailable Encounter Details Date Type Department Care Team (Latest Contact Info) Description 09/14/2024 Results Follow-Up [facility] Gastroenterology at [address] [place] [address] Jaya Grier MD [address] [place] [address] [address] [place] [address] Surgical pathology Social History Tobacco Use Types Packs/Day Years [...] materials from doctor or pharmacy Often 01/20/2024 [facility] Utilities Answer Date Recorded In [...] in a snf (including now)? 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 Gender Identity Female 02/08/2020 6:39 PM CDT Sexual Orientation Not on file documented as of this encounter Plan of Treatment Scheduled Procedures Name Priority Associated Diagnoses Date/Ti me COLONOSCOPY Iron deficiency anemia due to chronic blood loss documented as of this encounter Visit Diagnoses Not on filedocumented in this encounter Care Teams Streetcar Operator Relationship Specialty Start Date End Date Cherelle Corcoran MD PCP - General Family Medicine 08/30/19 Mark Queen MD Consulting Physician Infectious Diseases 01/10/20 Rudolph Welch MD [address] [facility] [address] [place] [address] Consulting Physician Infectious Diseases 12/05/22 Markie Ryan MD [address] [facility] [address] [place] [address] Consulting Physician Nephrology 12/05/22 [place] [address] [facility] [address] [place] [address] Consulting Physician Nephrology 10/22/23 Jaya Grier MD [address] [facility] [address] [place] [address] Consulting Physician Gastroenterology 02/01/24 Edgardo Kauffman MD [address] [facility] [address] [facility] [address] [place] [address] Surgeon Vascular Surgery 07/15/24 Macrina Mike RN [address] [place] [address] [address] [place] [address] Senior Analysis Specialist 11/07/24 documented as of this encounter
--- OUTSIDE RECORDS SUMMARY | 2024-11-09 10:03 | XMS_ITS | Encounter Summary ---
Author Organization [facility] Healthcare Address [address] [place] [address] Care Team Providers Care Manager Research And Development Name Role Phone Cherelle Corcoran MD Primary Care Pro vider Mark Queen MD Unavailable [phone] Rudolph Welch MD Unavailable Markie Ryan MD Unavailable [phone] Jimbo Strauss MD Unavailable [phone] Jaya Grier MD Unavailable Edgardo Kauffman MD Unavailable Macrina Mike RN Unavailable Reason for Visit * Reason Onset Date Comments Wound Infection 09/21/2024 Weakness - Generalized 09/21/2024 Confusion 09/21/2024 Encounter Details Date Type Department Care Team ([facility] st Contact Info) Description 09/21/2024 Nurse Triage [facility] Primary Care at [address] [phone] Cherelle Corcoran MD [facility] [address] Social History Tobacco Use Types [...] materials from doctor or pharmacy Often 01/20/2024 [facility] Utilities Answer Date Recorded In [...] file 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 Thanks! * Telephone Encounter - Monserrat Gillis RN - 09/21/2024 12:46 PM CDT Triage Disposition- go to ED now. Daughter to take her. Will route to Cherelle Corcoran MD as ITALO Vergaraeria calls reporting increased weakness. Had Dialysis on Thursday She reports open wound to her abdomen- no drainage- warm to touch Increasing confusion as well as incontinence. Reason for Disposition SEVERE pain in the wound Protocols used: Wound Infection [id number] * Telephone Encounter - Monserrat Gillis RN [...] filedocumented in this encounter Care Teams Manager Research And Development Relationship Specialty Start Date End Date Cherelle Corcoran MD PCP - General Family Medicine 08/30/19 Mark Queen MD Consulting Physician Infectious Diseases 01/10/20 Rudolph Welch MD [address] [facility] [address] [place] [address] Consulting Physician Infectious Diseases 12/05/22 Markie Ryan MD [address] [facility] [address] [place] [address] Consulting Physician Nephrology 12/05/22 [place] [address] [facility] [address] [place] [address] Consulting Physician Nephrology 10/22/23 Jaya Grier MD [address] [facility] [address] [place] [address] Consulting Physician Gastroenterology 02/01/24 Edgardo Kafufman MD [address] [facility] [address] [facility] [address] [place] [address] Surgeon Vascular Surgery 07/15/24 Macrina Mike RN [address] [place] [address] [address] [place] [address] Test Eng 11/07/24 documented as of this encounter
--- OUTSIDE RECORDS SUMMARY | 2024-11-09 10:03 | XMS_ITS | Referral Summary ---
Author Organization [facility] Address [address] [place] [address] Care Team Providers Care Practice Physician Name Role Phone hCerelle Corcoran MD Primary Care Pro vider Mark Queen MD Unavailable [phone] Rudolph Welch MD Unavailable [phone] Markie Ryan MD Unavailable Jimbo Strauss MD Unavailable [phone] Jaya Grier MD Unavailable Edgardo Kauffman MD Unavailable [phone] Macrina Mike RN Unavailable Encounters Date Type Department Care Team Description 11/08/[address] [facility] Nephrology at [place] [address] [place] [address] Markie Ryan MD 11/08/[address] [facility] Primary Care at [address] [place] [address] Cherelle Corcoran MD Additional Services Or Orders 11/08/[address] [facility] Primary Care at [address] [phone] Cherelle Corcoran MD 11/08/[address] [facility] Primary Care at [address] [phone] Cherelle Corcoran MD Appointment Request 11/02/19 3:17 PM CDT - 11/06/19 1:00 PM CDT Hospital Encounter [address] [address] ProgrTahmina lazaro MD Medavaram, Atul, MD Al Furgani, Mahmud Mustafa, MD Hypertensive urgency (Primary Dx); Acute cystitis without hematuria; Generalized weakness; Peripheral vertigo, unspecified laterality; Lightheadedness; ESRD on hemodialysis (HCC); Anemia of renal disease; Hyponatremia Discharge Disposition: Discharge to home, home health skilled care 11/02/[address] [facility] Primary Care at [address] [phone] Cherelle Corcoran MD 11/01/19 Results Follow-Up [facility] Primary Care at [address] [phone] Cherelle Corcoran MD Urinalysis reflex to microscopic and culture Urine, clean voided, Urinalysis, microscopic only 11/01/19 8:53 AM CDT - 11/01/19 11:59 PM CDT Hospital Encounter [facility] Office Building [address] [place] [phone] UTI symptoms Discharge Disposition: Discharge to home or self care 10/26/19 Results Follow-Up [facility] Primary Care at [address] [phone] Cherelle Corcoran MD XR Chest PA Lateral 2 Views 10/25/19 11:45 AM CDT - 10/25/19 11:59 PM CDT Hospital Encounter [facility] 1 DIAG IMG [address] [place] [phone] SOB (shortness of breath) Discharge Disposition: Discharge to home or self care 10/25/19 11:35 AM CDT Lab [facility] Medical Office Building [address] [place] [address] 10/25/19 10:30 [address] [facility] Primary Care at [address] [phone] Cherelle Corcoran MD Encounter for Medicare annual [...] behavioral disturbance (HCC); Parkinsonism, unspecified Parkinsonism type ([facility]); Schizoaffective disorder, bipolar type (HCC); Chronic diastolic congestive heart failure (HCC); Gastroesophageal reflux disease without esophagitis 10/19/19 Orders Only [facility] Nephrology at [address] [place] [address] Joe Ballard MD 10/04/19 25 Telephone [facility] Endocrinology Metabolism and Lipid [address] [place] [address] Medical Office Building [address], [address] [place] [address] Yoly Herrera, RN Insulin dosing 10/04/19 25 Telephone [facility] Primary Care at [address] [phone] Cherelle Corcoran MD Medical Question/Miscellaneous 09/22/19 Nurse Triage [facility] Primary Care at [address] [phone] Cherelle Corcoran MD 09/15/19 Results Follow-Up [facility] Gastroenterology at [place] [address] [place] [phone] Jaya Grier MD Surgical pathology 09/14/19 9:19 AM CDT Anesthesia Event [facility] GI Lab [address] [place] [address] Sarahy Hernandez MD 09/14/19 8:00 AM CDT - 09/14/19 8:30 AM CDT Surgery [facility] Lab [address] [place] [address] Jaya Grier MD ESOPHAGOGASTRODUODENOSCOPY BIOPSY 09/14/19 7:54 AM CDT - 09/14/19 10:32 AM CDT Hospital Encounter [facility] GI Lab [address] [place] [address] Jaya Grier MD Ulcer of esophagus without bleeding; Gastroesophageal reflux disease without esophagitis Discharge Disposition: Discharge to home or self care 09/09/19 9:00 AM CDT Office Visit [facility] Orthopedics and Sports Medicine [address] [place] [phone] Brook Muhammad NP Myofascial pain syndrome, cervical (Primary Dx); Chronic neck pain; Foraminal stenosis of cervical region, diffuse bilateral; Arthropathy of cervical facet joint; DDD (degenerative disc disease), cervical, C3-C4 through C6-C7; Cervical spinal osteophytosis, multilevel 09/01/19 2:15 PM [address] Office [address] [facility] Cardiology [address] [place] [address] [address] [place] [address] Santo Vail MD Dyspnea, unspecified type (Primary Dx) 08/23/19 8:20 AM CHANNEL SALES MANAGER Office Visit [facility] Endocrinology Metabolism and Lipid [address] [place] [address] Medical Office [address], [address] [place] [address] Smith Gibbs MD Type 2 diabetes mellitus with diabetic nephropathy, with long-term current use of insulin (HCC) (Primary Dx); Type 2 diabetes mellitus with diabetic neuropathy, with long-term current use of insulin (HCC); Mixed hyperlipidemia; ESRD on hemodialysis (HCC); Primary hypertension 08/18/19 8:15 AM CHANNEL SALES MANAGER Telemedicine [facility] Behavioral Health [address] [place] [phone] Adryan Swenson MD Schizoaffective disorder, bipolar type (HCC) (Primary Dx) 08/17/19 25 Telephone [facility] Primary Care at [address] [place] [address] Cherelle Corcoran MD Medical Question/Miscellaneous from Last 3 Months Allergies No known active allergies Medications FreeStyle Madhav 3 [place] [facility] Use Madhav 3 reader to scan Madhav 3 sensor Active pen needle, diabetic (Easy Touch) 32 gauge x 5/32 needleIndications :Type 2 diabetes mellitus with diabetic neuropathy, with long-term current use of insulin ([facility]) USE DIRECTED FOUR TIMES DAILY 100 each 3 Active fluticasone propionate (FLONASE) 50 mcg/actuation nasal spray Administer 2 sprays into each nostril daily as needed for rhinitis Active aspirin 81 mg chewable tablet Take 1 tablet (81 mg total) by mouth daily 90 tablet 1 Active methoxy peg-epoetin beta (MIRCERA INJ) 75 mcg once every 2 weeks 2024 Active gabapentin (NEURONTIN) 100 mg capsuleIndication s:Diabetic polyneuropathy associated with type 2 diabetes mellitus (HCC) TAKE 1 CAPSULE BY MOUTH 3 TIMES PER WEEK AFTER HEMODIALYSIS 40 capsule 1 Active atorvastatin (LIPITOR) 20 mg tablet Take 1 tablet (20 mg total) by mouth nightly Active calcitRIOL (ROCALTROL) 0.25 mcg capsule Take 1 capsule (0.25 mcg total) by mouth Active blood glucose diagnostic (Easy Touch Test Strip) stripIndications: Type 2 diabetes mellitus with diabetic neuropathy, with long-term current use of insulin ([facility]) 1 each by other route daily 100 strip 3 Active blood-glucose sensor (FreeStyle Madhav 3 Plus Sensor) deviceIndications :Type 2 diabetes mellitus with diabetic nephropathy, with long-term current use of insulin ([facility]) Use to continually monitor glucose, change sensor every 15 days 6 each 3 Active risperiDONE (RisperDAL) 2 mg tablet Take 1 tablet (2 mg total) by mouth daily Active pantoprazole DR (PROTONIX) 40 mg EC tabletIndications :Gastroesophageal reflux disease without esophagitis Take 1 tablet (40 mg total) by mouth daily before breakfast 90 tablet 3 Active insulin lispro (HumaLOG, ADMELOG) 100 unit/mL pen for injectionIndicati ons:Type 2 diabetes mellitus with diabetic nephropathy, with long-term current use of insulin ([facility]) Inject 4 units SQ before meals along with sliding scale. Max TDD 20 units 15 mL 3 Active cholecalciferol (VITAMIN D-3) 5,000 unit capsule [...] diabetes m ellitus 07/07/2024 Assessment & Plan (10/24/2024 11:30 AM CDT): Preivously discussed ok to restart atorvastatin, but also given overall health status reasonable to continue holding, especially if had side effects with restarting Assessment & Plan (07/14/2024 2:30 PM CHANNEL SALES MANAGER): Continue Lipitor Assessment & Plan (07/14/2024 8:56 AM CHANNEL SALES MANAGER): Ok to restart atorvastatin, but also given [...] nephrology Assessment & Plan (07/14/2024 2:39 PM CHANNEL SALES MANAGER): Patient is needing a Perma catheter exchange [...] proceed. Assessment & Plan (07/14/2024 8:51 AM CHANNEL SALES MANAGER): Following with nephrology Assessment & Plan (01/06/2024 [...] 10/30/2023 Assessment & Plan (05/06/2024 7:49 AM CHANNEL SALES MANAGER): Reviewed hospital discharge summary Now resolved Upcoming [...] stable Assessment & Plan (07/24/2023 1:51 PM CHANNEL SALES MANAGER): Chronic/stable Parkinsonism 08/14/2022 Assessment & Plan (10/24/2024 10:57 AM CDT): Following with neurology Assessment & Plan (07/14/2024 8:54 AM CHANNEL SALES MANAGER): Following with neurology, recommend reaching out to them in regards to restarting benztropine. Consider waiting until after restarts other medications given daughter reports tremors controlled off benztropine currently Assessment & Plan (11/10/2023 4:43 PM CDT): Following with neurology On cogentin Assessment & Plan (07/24/2023 1:50 PM CHANNEL SALES MANAGER): Following with neurology On cogentin twice a day Assessment & Plan (01/23/2023 9:20 AM CDT): Following with neurology On cogentin twice a day Assessment & Plan (10/10/2022 10:41 AM CDT): Following with neurology On cogentin Assessment & Plan (08/14/2022 10:46 AM CHANNEL SALES MANAGER): Following with neurology, reviewed note On cogentin [...] - PT/OT recommends SNF. -Plan Agueda [facility] on 11/26 ? Assessment & Plan (11/24/2021 2:07 PM CDT): Deconditioning 2/2 prolonged hospitalization. Daughter reports that prior to her illness, she was independent with a walker. - PT/OT recommends SNF. -Plan Aguead [facility] on 11/25. Assessment & Plan (11/23/2021 12:24 PM CDT): Deconditioning 2/2 prolonged hospitalization. Daughter reports that prior to her illness, she was independent with a walker. - PT/OT recommends SNF. -Estefany Romeo [facility] on 11/25. Assessment & Plan (11/22/2021 1:34 PM CDT): Deconditioning 2/2 prolonged hospitalization. Daughter reports that prior to her illness, she was independent with a walker. - PT/OT recommends SNF. -Plan Agueda [facility], SNF on 11/25. Assessment & Plan (11/21/2021 [...] care Assessment & Plan (08/14/2022 10:47 AM CHANNEL SALES MANAGER): Following with podiatry Assessment & Plan (04/02/2022 [...] weight 155lbs -Home with family at [place], collator hand consulted to review salt restrictions. -outpatient BMP, [...] renal consulted regarding volume management, possible terminal gauger dialysis planning, expedite OP f/u. Serologies and urine studies ordered. ED neg, compliments neg, cryoglobulin pending, ANCA pending, HIV neg. Continued -Added metolazone 2.5mg/daily per renal 09/13- with improving swelling, Cr bump to 2.33 so held further -Anticipate likely transition to PO agents prior to DC (?09/17) with ongoing clinical improvement. Goal weight 155lbs -Home with family at [place], collator hand consulted to review salt restrictions. Assessment & [...] weight 145-150lbs -Home with family at [place], collator hand consulted to review salt restrictions. Assessment & [...] renal consulted regarding volume management, possible terminal gauger dialysis planning, expedite OP f/u. [...] renal consulted regarding volume management, possible terminal gauger dialysis planning, expedite OP f/u. [...] net neg 1/2-1L/day. -consider renal consult regarding fdc dialysis planning, expedite OP f/u. Assessment [...] neg 1/2-1L/day. -consider renal consult regarding terminal gauger dialysis planning. Assessment & Plan [...] neurology Assessment & Plan (07/14/2024 8:53 AM CHANNEL SALES MANAGER): Following with neurology Assessment & Plan (01/05/2024 10:40 PM CDT): Follows with neurology. -continue risperidone 2mg QHS -continue benztropine 2mg daily Assessment & Plan (11/10/2023 4:37 PM CDT): Following with neurology Assessment & Plan (07/24/2023 1:50 PM CHANNEL SALES MANAGER): Following with neurology Assessment & Plan (01/23/2023 9:18 AM CDT): Following with neurology Assessment & Plan (10/10/2022 10:37 AM CDT): Following with neurology, ordered MRI, # given to son to schedule Assessment & Plan (06/09/2022 3:37 PM CHANNEL SALES MANAGER): Needs to reschedule with neurology Looking into prison, but declined for [facility] for schizoaffective disorder Assessment & [...] needed Assessment & Plan (06/09/2022 3:37 PM CHANNEL SALES MANAGER): Reviewed PMH & PHQ Screening PHQ-2 Total [...] psychiatry Assessment & Plan (08/18/2024 8:44 AM CHANNEL SALES MANAGER): Chronic, stable. Does not report any stephanie [...] discussed. Assessment & Plan (07/14/2024 8:54 AM CHANNEL SALES MANAGER): Following with psychiatry, recommend reaching out to [...] psychiatry Assessment & Plan (07/24/2023 1:50 PM CHANNEL SALES MANAGER): Following with psychiatry Assessment & Plan (01/23/2023 [...] discussed. Assessment & Plan (08/09/2021 5:42 AM CHANNEL SALES MANAGER): Following with psychiatry Assessment & Plan (08/07/2021 3:28 PM CHANNEL SALES MANAGER): Chronic condition, switch to Haldol and has had multiple different problems including acute kidney failure in infectious process. [facility] Confounded by delirium. Currently experiencing delirium will discontinue Haldol and return to Risperdal as previously taking. Risperdal was discontinued due to poorly-controlled diabetes. Monitor in 1 to 2 weeks. Assessment & Plan (07/03/2021 7:24 AM CHANNEL SALES MANAGER): Following with psychiatry D/c risperidone, started on haldol Assessment & Plan (07/01/2021 9:16 PM CHANNEL SALES MANAGER): Chronic, stable. +persistent auditory hallucinations Discontinue Risperdal [...] Reviewed all of those notes-primary care doctor, concert or lecture hall manager, produce specialist. The patient previously lived on her own and was observed to be hoarding. See additional problems-dementia. Evaluate again in 1 month after starting Risperdal. Iron deficiency anemia 04/02/2020 Assessment & Plan (05/06/2024 7:51 AM CHANNEL SALES MANAGER): Recommend discussing IV iron with nephrology Assessment & Plan (10/02/2020 4:35 PM CDT): Continue iron Assessment & Plan (05/28/2020 1:51 PM CHANNEL SALES MANAGER): Iron levels recently normalized, but still anemic, repeat today Assessment & Plan (04/16/2020 11:45 AM CDT): Recent iron within normal limits, H/H improving, continue supplementation until normalized Gastroesophageal reflux disease without esophagi tis 04/02/2020 Assessment & Plan (10/24/2024 10:57 AM CDT): continue protonix Following with GI Assessment & Plan (07/14/2024 8:56 AM CHANNEL SALES MANAGER): Restart protonix Upcoming EGD Assessment & Plan (01/05/2024 10:40 PM CDT): -continue famotidine Assessment & Plan (10/02/2020 4:35 PM CDT): Continue omeprazole Assessment & Plan (07/24/2020 2:06 PM CHANNEL SALES MANAGER): Recurrent symptoms off omeprazole, restart Assessment & Plan (05/28/2020 1:51 PM CHANNEL SALES MANAGER): Iron levels recently normalized, but still anemic, repeat today Assessment & Plan (04/02/2020 1:26 PM CDT): Start PPI History of amputation of toe 01/19/2020 Assessment & Plan (01/08/2021 3:50 PM CDT): Stable Assessment & Plan (10/02/2020 4:35 PM CDT): Stable Assessment & Plan (04/30/2020 1:00 PM CHANNEL SALES MANAGER): Stable Assessment & Plan (02/14/2020 5:15 PM CDT): Healing well Following with surgeon/wound clinic Assessment & Plan (01/19/2020 5:17 PM CDT): Has home health Following with vascular Hypertension associated with diabetes 12/13/2019 Assessment & Plan (10/24/2024 11:12 AM CDT): BP controlled Assessment & Plan (07/14/2024 2:32 PM CHANNEL SALES MANAGER): Continue carvedilol, hydralazine Assessment & Plan (07/14/2024 8:51 AM CHANNEL SALES MANAGER): BP controlled today off medication Daughter reports nephrology said could restart medication, is planning to restart coreg first and monitor blood pressure prior to restarting nifedipine/hydralazine Assessment & Plan (05/06/2024 7:48 AM CHANNEL SALES MANAGER): BP controlled Continue nifedipine, hold prior to [...] x1 with HD. Most recent admission at [facility] with initiation of hydralazine and [...] amlodipine Assessment & Plan (08/03/2023 4:02 PM CHANNEL SALES MANAGER): BP uncontrolled Start 5mg amlodipine Assessment & Plan (07/24/2023 1:49 PM CHANNEL SALES MANAGER): Blood pressure borderline today off medications Assessment & Plan (01/23/2023 9:18 AM CDT): Blood pressure borderline low today, asymptomatic Checking labs Advised to decrease amlodipine to 5mg and monitor blood pressure Assessment & Plan (10/10/2022 10:50 AM CDT): Continue coreg 6.25mg twice a day & 40mg valsartan Assessment & Plan (08/14/2022 10:43 AM CHANNEL SALES MANAGER): Blood pressure at goal, continue coreg 6.25mg twice a day Assessment & Plan (06/09/2022 3:32 PM CHANNEL SALES MANAGER): Blood pressure at goal, continue coreg 3.125mg [...] day Assessment & Plan (08/05/2021 10:35 AM CHANNEL SALES MANAGER): Blood pressure at goal Increase amlodipine to 10mg & d/c hydralazine per cardiology Assessment & Plan (05/28/2021 4:59 PM CHANNEL SALES MANAGER): Blood pressure above goal, but previously within [...] lisinopril Assessment & Plan (08/28/2020 12:12 PM CHANNEL SALES MANAGER): Blood pressure at goal Continue lisinopril Assessment & Plan (07/24/2020 2:05 PM CHANNEL SALES MANAGER): Blood pressure at goal Continue lisinopril Assessment & Plan (05/28/2020 1:50 PM CHANNEL SALES MANAGER): BP borderline Continue 10mg lisinopril Continue to monitor Assessment & Plan (04/30/2020 12:32 PM CHANNEL SALES MANAGER): BP borderline Continue 10mg lisinopril Continue to [...] endocrine Assessment & Plan (07/14/2024 2:31 PM CHANNEL SALES MANAGER): Controlled. Continue as per Endocrine and PCP Assessment & Plan (07/14/2024 8:50 AM CHANNEL SALES MANAGER): Following with endocrine, reviewed note Holding insulin [...] +SSI Assessment & Plan (07/24/2023 1:49 PM CHANNEL SALES MANAGER): Lab Results Component Value Date HGBA1C 8.1 [...] trulicity Assessment & Plan (08/14/2022 10:42 AM CHANNEL SALES MANAGER): Following with endocrine Continue lantus, 12 units humalog TIDAC & 1.5mg trulicity Assessment & Plan (06/09/2022 3:32 PM CHANNEL SALES MANAGER): Following with endocrine Home blood sugar at [...] for strict med oversight by [place] at [place] reviewed with daughter this admit. Assessment & [...] for strict med oversight by family at [place] reviewed with daughter this admit. Assessment & [...] and nephropathy. Med oversight by family at [place]. Assessment & Plan (09/14/2021 12:22 PM CDT): [...] as she had discussed this with outpatient glove brusher - repeat A1c - resume home statin, not currently on feliciano due to kidney function Assessment & Plan (08/05/2021 10:35 AM CHANNEL SALES MANAGER): Continue 15 units lantus twice a day Assessment & Plan (07/03/2021 7:24 AM CHANNEL SALES MANAGER): Fasting blood sugar significantly improved Risperidone changed Continue current meds Continue to monitor Assessment & Plan (06/18/2021 11:22 AM CHANNEL SALES MANAGER): Increase lantus to 60 units nightly, if blood sugar still above goal after 1 week split into 33 units twice a day Follow up with blood sugar via portal in 2 weeks Continue jardiance 25mg Continue trulicity 4.5mg weekly Assessment & Plan (05/28/2021 4:58 PM CHANNEL SALES MANAGER): Increase lantus to 55 units nightly Continue [...] weekly Assessment & Plan (08/28/2020 1:00 PM CHANNEL SALES MANAGER): DM Care Plan: Meds: Lantus - continue [...] recheck Assessment & Plan (07/24/2020 2:05 PM CHANNEL SALES MANAGER): Formulary change 2/2 insurance, switched to trulicity. Will increase to 1.5mg Assessment & Plan (05/28/2020 1:50 PM CHANNEL SALES MANAGER): Check a1c Sixto isn't checking blood sugar regularly, but when she is she has several >200 so I lean towards increasing if a1c>7 Assessment & Plan (04/30/2020 12:31 PM CHANNEL SALES MANAGER): Blood sugar improved on 40 units basaglar [...] was in the room. Recently treated at [facility] for PNA with prolonged course of antibiotics: [...] was in the room. Recently treated at [facility] for PNA with prolonged course of antibiotics: [...] was in the room. Recently treated at [facility] for PNA with prolonged course of antibiotics: [...] was in the room. Recently treated at [facility] for PNA with prolonged course of antibiotics: [...] was in the room. Recently treated at [facility] for PNA with prolonged course of antibiotics: [...] was in the room. Recently treated at [facility] for PNA with prolonged course of antibiotics: [...] was in the room. Recently treated at [facility] for PNA with prolonged course of antibiotics: [...] was in the room. Recently treated at [facility] for PNA with prolonged course of antibiotics: [...] was in the room. Recently treated at [facility] for PNA with prolonged course of antibiotics: [...] was in the room. Recently treated at [facility] for PNA with prolonged course of antibiotics: [...] 11/10/2023 Assessment & Plan (08/14/2022 10:44 AM CHANNEL SALES MANAGER): Continue eliquis Assessment & Plan (06/09/2022 3:36 PM CHANNEL SALES MANAGER): Continue eliquis Assessment & Plan (04/02/2022 6:05 [...] 10/10/2022 Assessment & Plan (08/07/2021 3:30 PM CHANNEL SALES MANAGER): Subacute, persistent, hospitalized recently. She is alert [...] performed at [facility] which revealed acute osteomyelitis to the distal [...] 08/28/2020 Assessment & Plan (05/28/2020 1:52 PM CHANNEL SALES MANAGER): Encouraged to follow up with wound clinic for reassessment Assessment & Plan (04/30/2020 12:31 PM CHANNEL SALES MANAGER): Following with wound clinic Assessment & Plan [...] osteomyelitis on recent MRI performed at [facility]. She is being treated with [...] nightly Assessment & Plan (08/14/2022 10:42 AM CHANNEL SALES MANAGER): Continue lyrica 150mg nightly Assessment & Plan (06/09/2022 3:32 PM CHANNEL SALES MANAGER): Continue lyrica 150mg nightly Assessment & Plan [...] status. Assessment & Plan (05/28/2021 4:58 PM CHANNEL SALES MANAGER): Continue lyrica 150mg nightly Assessment & Plan [...] gabapentin Assessment & Plan (08/28/2020 1:00 PM CHANNEL SALES MANAGER): On gabapentin Assessment & Plan (07/24/2020 2:05 PM CHANNEL SALES MANAGER): Continue gabapentin Assessment & Plan (04/02/2020 1:22 [...] Trivalent, IM (MDV) 04/17/2017 PPD TEST 10/22/2023 [employer] SARS-CoV-2 Monovalent Vaccination (12+ Yrs) PURPLE 06/11/2021,10/13/2020,09/22/2020 [...] Recorded In the past 12 months has [employer], oil, or water company threatened to shut [...] a skilled nursing (including now)? No 10/30/2023 PHQ-9 Answer Date [...] in a skilled nursing (including now)? No 11/07/2024 Personal Safety Answer Date Recorded Have you ever been in or are you currently in a harmful physical or emotional relationship or is someone making you feel afraid or unsafe? Denies 11/01/2024 Comments No Sex and Gender Information Value Date Recorded Sex Assigned at Not on file Legal Sex Female 9:03 AM CHANNEL SALES MANAGER Gender Identity Female 02/08/2020 6:39 [...] blood loss Medical Devices Implanted Type Area Candle Cutter Device Identifier Shelf Expiration Date Model / Serial / Lot [facility] Duramax Vascpak Safesheath D-Pro 15.5fr 24cm Kit Catheter [id number] - [id number] Implanted:Qty: 1 on 10/15/2023 at [facility] 10/19/2025 [id number] 85 / / [id number] [facility] Duraflow Embosafe 15.5fr 24cm Basic 2 Lumen Kit Catheter [id number] - [id number] Implanted:Qty: 1 on 07/15/2024 by Edgardo Kauffman MD at [facility] 08/19/2026 [id number] 15 / / [id number] Procedures Procedure Name Priority Date/Time Associated Diagnosis [...] S, VENOUS Routine 09/13/2024 8:54 AM CDT MA INJECTION SINGLE/MID LEVEL GAME DESIGNER TRIG [place] POINT 1/2 MUSCLES Routine 09/08/2024 9:00 AM CDT Myofascial pain syndrome, cervical XR SHOULDER RIGHT 2 OR MORE VIEWS Schedule Routine, Read Routine (OP Routine) 09/07/2024 CT HEAD WO CONTRAST Schedule Routine, Read Routine (OP Routine) 09/07/2024 POCT HEMOGLOBIN A1C Routine 08/22/2024 8:55 AM CHANNEL SALES MANAGER Type 2 diabetes mellitus with diabetic nephropathy, with long-term current use of insulin (HCC) DIABETIC EYE EXAM Routine 07/27/2024 12:37 PM CHANNEL SALES MANAGER COLONOSCOPY 03/01/2024 8:49 AM CDT DEXA AXIAL [...] POCT ORDERABLES - DEVICE Final Result NILSA [address] [facility] Department of Laboratories [place], [place] [id number] * (ABNORMAL) eGFR (11/05/2024 6:52 AM CDT) [...] 7:12 AM CDT us Brad Sebastien Smallwood SYSTEMS DEVELOPER LAB BLOOD ORDERABLES Fin al Result [facility] [address] [facility] Department [place] [address] * Differential, auto (11/05/2024 6:52 AM CDT) Pathologist [facility] Neutrophil abs 5.74 1.50 - 6.50 K/cumm Imm gran abs 0.05 0.00 - 0.10 K/cumm [facility] Lymphocyte abs 1.98 0.80 - 3.30 K/cumm [facility] Monocyte abs 0.73 0.20 - 0.80 K/cumm [facility] Eosinophil abs 0.13 0.00 - 0.50 K/cumm [facility] Basophil abs 0.03 0.00 - 0.10 K/cumm [facility] Neutrophil pct 66.3 % [facility] Comment: Interpretive Data Percent cell count reference ranges are not reported, since discordance with absolute values may lead to misinterpretation of CBC data. Current Interpretive Data was last revised on 2017. Imm gran pct 0.6 % [facility] Comment: Interpretive Data Percent cell count reference ranges are not reported, since discordance with absolute values may lead to misinterpretation of CBC data. Current Interpretive Data was last revised on 2017. Lymphocyte pct 22.9 % [facility] Comment: Interpretive Data Percent cell count reference ranges are not reported, since discordance with absolute values may lead to misinterpretation of CBC data. Current Interpretive Data was last revised on 2017. Monocyte pct 8.4 % [facility] Comment: Interpretive Data Percent cell count reference ranges are not reported, since discordance with absolute values may lead to misinterpretation of CBC data. Current Interpretive Data was last revised on 2017. Eosinophil pct 1.5 % [facility] Comment: Interpretive Data Percent cell count reference ranges are not reported, since discordance with absolute values may lead to misinterpretation of CBC data. Current Interpretive Data was last revised on 2017. Basophil pct 0.3 % [facility] Comment: Interpretive Data Percent cell count reference ranges are not reported, since discordance with absolute values may lead to misinterpretation of CBC data. Current Interpretive Data was last revised on 2017. Blood 11/05/2024 6:52 AM CDT 11/05/2024 7:12 AM CDT Brad Sweet [facility] SYSTEMS DEVELOPER LAB BLOOD ORDERABLES Fin al Result Performing Organization Address City/[facility]/ZIP Co de Phone Number NILSA [address] [place] [address] * (ABNORMAL) CBC with auto differential (11/05/2024 6:52 AM CDT) WBC 8.66 3.80 - 9.90 K/cumm Hgb 8.6(L) 11.9 - 15.5 g/dL [facility] Hct 26.6(L) 35.6 - 45.5 % [facility] Plt 215 150 - 400 K/cumm [facility] MPV 10.4 9.1 - 12.3 fL [facility] RBC 2.60(L) 3.90 - 5.20 M/cumm [facility] MCV 102.3(H) 81.3 - 96.4 fL [facility] MCH 33.1 27.1 - 33.3 pg [facility] MCHC 32.3 32.3 - 35.7 g/dL [facility] RDW CV 13.8 11.1 - 14.9 % [facility] RDW SD 51.4(H) 35.7 - 48.1 fL [facility] NRBC abs 0.09(H) 0.00 - 0.01 K/cumm [facility] Blood 11/05/2024 6:52 AM CDT 11/05/2024 7:12 AM CDT [employer] SYSTEMS DEVELOPER LAB BLOOD ORDERABLES Fin al Result Performing Organization Address City/[facility]/ZIP Co de Phone Number NILSA [address] [place] [address] * (ABNORMAL) Basic metabolic panel (11/05/2024 6:52 AM CDT) Pathologist [facility] Sodium 135 135 - 145 mmol/L Potassium, pl 4.5 3.3 - 4.9 mmol/L [facility] Chloride 96(L) 97 - 110 mmol/L [facility] CO2 28 22 - 32 mmol/L [facility] Anion gap 11 2 - 15 mmol/L [facility] BUN 34(H) 6 - 25 mg/dL [facility] Creatinine 5.23(H) 0.60 - 1.10 mg/dL [facility] Glucose 145 70 - 199 mg/dL [facility] Comment: Interpretive Data Fasting glucose [...] 2022. Calcium 9.0 8.5 - 10.3 mg/dL [facility] Blood 11/05/2024 6:52 AM CDT 11/05/2024 7:12 AM CDT us Brad Smallwood NP LAB BLOOD ORDERABLES Fin al Result NILSA [address] [facility] Department [place] [address] * (ABNORMAL) POCT glucose (11/04/2024 9:22 PM CDT) [facility] Glucose, POC 223(H) 70 - 199 mg/dL Blood 11/04/2024 9:22 PM CDT 11/04/2024 9:22 PM CDT us Juan J Heller MD LAB POCT ORDERABLES - DEVICE Final Result Performing Organization Address [facility] de Phone Number NILSA [address] [address] * (ABNORMAL) POCT glucose (11/04/2024 4:33 PM CDT) Glucose, POC 240(H) 70 - 199 mg/dL Glucose comment 1 Use This Result [facility] Glucose comment 2 RN/MD Notified [facility] Blood 11/04/2024 4:33 PM CDT 11/04/2024 4:33 PM CDT Juan J Heller MD LAB POCT ORDERABLES - DEVICE Final Result Performing Organization Address [facility] de Phone Number [address] [address] * POCT glucose (11/04/2024 11:12 AM CDT) Glucose, POC 177 70 - 199 mg/dL Glucose comment 1 RN/MD Notified [facility] Blood 11/04/2024 11:1 2 AM CDT 11/04/2024 11:12 AM CDT Juan J Heller MD LAB POCT ORDERABLES - DEVICE Final Result Performing Organization Address [facility] de Phone Number [address] [place] [address] * POCT glucose (11/04/2024 9:37 AM CDT) Glucose, POC 138 70 - 199 mg/dL Blood 11/04/2024 9:37 AM CDT 11/04/2024 9:37 AM CDT Juan J Heller MD LAB POCT ORDERABLES - DEVICE Final Result Performing Organization Address [facility]/State/ZIP Co de Phone Number [address]ER[address] [place] [address] * POCT glucose (11/04/2024 6:09 AM CDT) Glucose, POC 190 70 - 199 mg/dL Blood 11/04/2024 6:09 AM CDT 11/04/2024 6:09 AM CDT us Juan J Heller MD LAB POCT ORDERABLES - DEVICE Final Result Performing Organization Address [facility] Co de Phone Number [address] [address] * (ABNORMAL) eGFR (11/04/2024 4:16 AM CDT) [facility] eGFR 6(L) >=60 mL/min/1. 73 m2 Comment: [...] ORDERABLES Fin al Result Performing Organization Address City/[facility]/ZIP Co de Phone Number CARLOS ENRIQUE[address] [place] [address] * Differential, auto (11/04/2024 4:16 AM CDT) Pathologist [facility] Neutrophil abs 4.99 1.50 - 6.50 K/cumm Imm gran abs 0.05 0.00 - 0.10 K/cumm [facility] Lymphocyte abs 2.56 0.80 - 3.30 K/cumm [facility] Monocyte abs 0.70 0.20 - 0.80 K/cumm [facility] Eosinophil abs 0.15 0.00 - 0.50 K/cumm [facility] Basophil abs 0.03 0.00 - 0.10 K/cumm [facility] Neutrophil pct 58.7 % [facility] Comment: Interpretive Data Percent cell count reference ranges are not reported, since discordance with absolute values may lead to misinterpretation of CBC data. Current Interpretive Data was last revised on 2017. Imm gran pct 0.6 % [facility] Comment: Interpretive Data Percent cell count reference ranges are not reported, since discordance with absolute values may lead to misinterpretation of CBC data. Current Interpretive Data was last revised on 2017. Lymphocyte pct 30.2 % [facility] Comment: Interpretive Data Percent cell count reference ranges are not reported, since discordance with absolute values may lead to misinterpretation of CBC data. Current Interpretive Data was last revised on 2017. Monocyte pct 8.3 % [facility] Comment: Interpretive Data Percent cell count reference ranges are not reported, since discordance with absolute values may lead to misinterpretation of CBC data. Current Interpretive Data was last revised on 2017. Eosinophil pct 1.8 % [facility] Comment: Interpretive Data Percent cell count reference ranges are not reported, since discordance with absolute values may lead to misinterpretation of CBC data. Current Interpretive Data was last revised on 2017. Basophil pct 0.4 % [facility] Comment: Interpretive Data Percent cell count reference ranges are not reported, since discordance with absolute values may lead to misinterpretation of CBC data. Current Interpretive Data was last revised on 2017. Blood 11/04/2024 4:16 AM CDT 11/04/2024 4:35 AM CDT [facility] Sebastien Smallwood SYSTEMS DEVELOPER LAB BLOOD ORDERABLES Fin al Result Performing Organization Address [facility] Co de Phone Number NILSA [address] [place] [address] * (ABNORMAL) CBC with auto differential (11/04/2024 4:16 AM CDT) [facility] WBC 8.48 3.80 - 9.90 K/cumm Hgb 7.3(L) 11.9 - 15.5 g/dL [facility] Hct 22.2(L) 35.6 - 45.5 % [facility] Plt 196 150 - 400 K/cumm [facility] MPV 10.4 9.1 - 12.3 fL [facility] RBC 2.24(L) 3.90 - 5.20 M/cumm [facility] MCV 99.1(H) 81.3 - 96.4 fL [facility] MCH 32.6 27.1 - 33.3 pg [facility] MCHC 32.9 32.3 - 35.7 g/dL [facility] RDW CV 13.4 11.1 - 14.9 % [facility] RDW SD 48.3(H) 35.7 - 48.1 fL [facility] NRBC abs 0.02(H) 0.00 - 0.01 K/cumm [facility] Blood 11/04/2024 4:16 AM CDT 11/04/2024 4:35 AM CDT [facility] Small[facility] SYSTEMS DEVELOPER LAB BLOOD ORDERABLES Fin al Result Performing Organization Address [facility] Co de Phone Number NILSA [address] [place] [address] * (ABNORMAL) Basic metabolic panel (11/04/2024 4:16 AM CDT) [facility] Sodium 135 135 - 145 mmol/L Potassium, pl 4.7 3.3 - 4.9 mmol/L [facility] Chloride 95(L) 97 - 110 mmol/L [facility] CO2 25 22 - 32 mmol/L [facility] Anion gap 15 2 - 15 mmol/L [facility] BUN 57(H) 6 - 25 mg/dL [facility] Creatinine 6.58(H) 0.60 - 1.10 mg/dL [facility] Glucose 153 70 - 199 mg/dL [facility] Comment: Interpretive Data Fasting glucose [...] 2022. Calcium 8.3(L) 8.5 - 10.3 mg/dL [facility] Blood 11/04/2024 4:16 AM CDT 11/04/2024 4:35 AM CDT Brad Smallwood SYSTEMS DEVELOPER LAB BLOOD ORDERABLES Fin al Result Performing Organization Address City/[facility]/ZIP Co de Phone Number [address] [place] [address] * (ABNORMAL) POCT glucose (11/03/2024 8:27 PM CDT) [facility] Glucose, POC 222(H) 70 - 199 mg/dL Glucose comment 1 RN/MD Notified [facility] Blood 11/03/2024 8:27 PM CDT 11/03/2024 8:27 PM CDT Juan J Heller MD LAB POCT ORDERABLES - DEVICE Final Result [address] [address] * (ABNORMAL) POCT glucose (11/03/2024 3:45 PM CDT) Glucose, POC 217(H) 70 - 199 mg/dL Glucose comment 1 Use This Result NILSA Glucose comment 2 RN/MD Notified NILSA Blood 11/03/2024 3:45 PM CDT 11/03/2024 3:45 PM CDT Juan J Heller MD LAB POCT ORDERABLES - DEVICE Final Result NILSA RODRIGES [address] [facility] Department [place] [address] * MRI Brain WO Contrast (11/03/2024 1:17 [...] Hyperostosis frontalis interna. ORBITS: No acute abnormality. [place] ocular lenses replaced bilaterally. PARANASAL SINUSES AND MASTOIDS: Tiny focus of opacifying material in the dependent left sphenoid sinuses. Slight scattered fluid about the nclws-[id number]-rupc-left mastoid air cells. Scattered fluid OTHER: No other significant finding. IMPRESSION: Within the limitations of patient motion artifact, no acute intracranial process with chronic findings as above. THIS IS AN ELECTRONICALLY VERIFIED FINAL REPORT 11/03/2024 1:26 PM - Electronically signed by Redd ARMAS T: Report ID: [id number] Reading Location: [place] [address] Procedure Note Redd Hendrickson MD - 11/03/2024 EXAM DESCRIPTION: MRI BRAIN WO CONTRAST REASON FOR STUDY: Altered mental status of unspecified duration. Noprovision of focal neurologic deficits. No provided history of trauma or inciting and/or aggravating events. No provided past medical or surgical history. TECHNIQUE: Multiplanar imaging includes non-contrasted T1, T2, FLAIR, and diffusion with ADC map sequences. Additional sequence(s) sensitive [employer]. Images stored on PACS. Patient motion artifact [...] Hyperostosis frontalis interna. ORBITS: No acute abnormality. [place] ocular lenses replaced bilaterally. PARANASAL SINUSES AND MASTOIDS: Tiny focus of opacifying material in the dependent left sphenoid sinuses. Slight scattered fluid about the zfudi-gzmcijk-bsgm-left mastoid air cells. Scattered fluid OTHER: No other significant finding. IMPRESSION: Within the limitations of patient motion artifact, no acute intracranial process with chronic findings as above. THIS IS AN ELECTRONICALLY VERIFIED FINAL REPORT 11/03/2024 1:26 PM - Electronically signed by Redd ARMAS T: Report ID: [id number] Reading Location: [place] [address] Juan J Heller MD IMG MRI PROCEDURES Final Result * (ABNORMAL) POCT glucose (11/03/2024 11:14 AM CDT) Glucose, POC 259(H) 70 - 199 mg/dL Glucose comment 1 Use This Result [facility] Glucose comment 2 RN/MD Notified NILSA Blood 11/03/2024 11:1 4 AM CDT 11/03/2024 11:14 AM CDT Juan J Heller MD LAB POCT ORDERABLES - DEVICE Final Result NILSA [address] [facility] Department [place] [address] * POCT glucose (11/03/2024 7:17 AM CDT) Glucose, POC 139 70 - 199 mg/dL Glucose comment 1 Use This Result [facility] Glucose comment 2 RN/MD Notified NILSA Blood 11/03/2024 7:17 AM CDT 11/03/2024 7:17 AM CDT Juan J Heller MD LAB POCT ORDERABLES - DEVICE Final Result Performing Organization Address [facility] Co de Phone Number NILSA [address] [place] [address] * (ABNORMAL) eGFR (11/03/2024 2:33 AM CDT) [...] 2:33 AM CDT 11/03/2024 3:06 AM CDT Brad Smallwood NP LAB BLOOD ORDERABLES Fin al Result Performing Organization Address City/[facility]/ZIP Co de Phone Number NILSA [address] [place] [address] * Differential, auto (11/03/2024 2:33 AM CDT) Pathologist [facility] Neutrophil abs 5.20 1.50 - 6.50 K/cumm Imm gran abs 0.03 0.00 - 0.10 K/cumm [facility] Lymphocyte abs 2.47 0.80 - 3.30 K/cumm [facility] Monocyte abs 0.66 0.20 - 0.80 K/cumm [facility] Eosinophil abs 0.14 0.00 - 0.50 K/cumm [facility] Basophil abs 0.04 0.00 - 0.10 K/cumm [facility] Neutrophil pct 60.9 % [facility] Comment: Interpretive Data Percent cell count reference ranges are not reported, since discordance with absolute values may lead to misinterpretation of CBC data. Current Interpretive Data was last revised on 2017. Imm gran pct 0.4 % [facility] Comment: Interpretive Data Percent cell count reference ranges are not reported, since discordance with absolute values may lead to misinterpretation of CBC data. Current Interpretive Data was last revised on 2017. Lymphocyte pct 28.9 % [facility] Comment: Interpretive Data Percent cell count reference ranges are not reported, since discordance with absolute values may lead to misinterpretation of CBC data. Current Interpretive Data was last revised on 2017. Monocyte pct 7.7 % [facility] Comment: Interpretive Data Percent cell count reference ranges are not reported, since discordance with absolute values may lead to misinterpretation of CBC data. Current Interpretive Data was last revised on 2017. Eosinophil pct 1.6 % [facility] Comment: Interpretive Data Percent cell count reference ranges are not reported, since discordance with absolute values may lead to misinterpretation of CBC data. Current Interpretive Data was last revised on 2017. Basophil pct 0.5 % [facility] Comment: Interpretive Data Percent cell count reference ranges are not reported, since discordance with absolute values may lead to misinterpretation of CBC data. Current Interpretive Data was last revised on 2017. Blood 11/03/2024 2:33 AM CDT 11/03/2024 3:03 AM CDT us Brad Sebastien Smallwood SYSTEMS DEVELOPER LAB BLOOD ORDERABLES Fin al Result NILSA RODRIGES [address] [facility] Department [place] [address] * (ABNORMAL) CBC with auto differential (11/03/2024 2:33 AM CDT) [facility] WBC 8.54 3.80 - 9.90 K/cumm Hgb 7.4(L) 11.9 - 15.5 g/dL [facility] Hct 22.8(L) 35.6 - 45.5 % [facility] Plt 195 150 - 400 K/cumm [facility] MPV 10.8 9.1 - 12.3 fL [facility] RBC 2.25(L) 3.90 - 5.20 M/cumm [facility] MCV 101.3(H) 81.3 - 96.4 fL [facility] MCH 32.9 27.1 - 33.3 pg [facility] MCHC 32.5 32.3 - 35.7 g/dL [facility] RDW CV 13.3 11.1 - 14.9 % [facility] RDW SD 49.3(H) 35.7 - 48.1 fL [facility] NRBC abs 0.00 0.00 - 0.01 K/cumm [facility] Blood 11/03/2024 2:33 AM CDT 11/03/2024 3:03 AM CDT us Brad Sebastien Smallwood SYSTEMS DEVELOPER LAB BLOOD ORDERABLES Fin al Result [facility] [address] [facility] Department [place] [address] * (ABNORMAL) Basic metabolic panel (11/03/2024 2:33 AM CDT) [facility] Sodium 135 135 - 145 mmol/L Potassium, pl 4.1 3.3 - 4.9 mmol/L [facility] Chloride 95(L) 97 - 110 mmol/L [facility] CO2 27 22 - 32 mmol/L [facility] Anion gap 13 2 - 15 mmol/L [facility] BUN 38(H) 6 - 25 mg/dL [facility] Creatinine 4.56(H) 0.60 - 1.10 mg/dL [facility] Glucose 131 70 - 199 mg/dL [facility] Comment: Interpretive Data Fasting glucose [...] 2022. Calcium 8.0(L) 8.5 - 10.3 mg/dL [facility] Blood 11/03/2024 2:33 AM CDT 11/03/2024 3:03 AM CDT Brad Smallwood NP LAB BLOOD ORDERABLES Fin al Result Performing Organization Address City/[facility]/ZIP Co de Phone Number [address] D[employer] [place] [address] * POCT glucose (11/02/2024 9:40 PM CDT) Glucose, POC 157 70 - 199 mg/dL Glucose comment 1 RN/MD Notified [facility] Blood 11/02/2024 9:40 PM CDT 11/02/2024 9:40 PM CDT Juan J Heller MD LAB POCT ORDERABLES - DEVICE Final Result Performing Organization Address City/[facility]/ZIP Co de Phone Number [address] [place] [address] * Ammonia (11/02/2024 6:56 PM CDT) Ammonia 24 <=50 mcmol/L Comment: Please note on 2023 the unit of measure changed from mcg/dL to mcmol/L. Current Interpretive Data was last revised on 2023. Blood 11/02/2024 6:56 PM CDT 11/02/2024 7:04 PM CDT Juan J Heller MD LAB BLOOD ORDERABLE S Final Result NILSA [facility] [place] [address] * CT Head WO Contrast (11/02/2024 6:31 [...] Salvador Bronson M.D. KT T: Report ID: [id number] Reading Location: [id number] Procedure Note Salvador Bronson MD - 11/02/2024 [...] Salvador Bronson M.D. KT T: Report ID: [id number] Reading Location: [place] [address] Juan J Heller MD IMG CT PROCEDURES F inal Result * (ABNORMAL) POC Blood Gas and Chemistries, Arterial - (11/02/2024 6:17 PM CDT) Pathologist [facility] pH, art POC 7.45 7.35 - 7.45 pCO2, art POC 40 35 - 45 mmHg [facility] pO2, art POC 95 83 - 108 mmHg [facility] HCO3, art (Calc) POC 28 20 - 30 mmol/L [facility] Base excess, art POC 4 mmol/L [facility] Comment: Interpretive Data No reference range established. Current interpretive data was last revised 2020. O2 Sat, art (Calc) POC 95 94 - 98 % [facility] Oxy Hgb, art POC 95.4(H) 90.0 - 95.0 % [facility] Met Hgb, art POC 0.0 0.0 - 1.9 % [facility] Carboxy Hgb, art POC 0.0 0.0 - 2.9 % [facility] Hemoglobin, art POC 8.8(L) 11.9 - 15.5 g/dL [facility] Blood 11/02/2024 6:17 PM CDT 11/02/2024 6:17 PM CDT Juan J Heller MD LAB POCT ORDERABLES - DEVICE Final Result NILSA RODRIGES [address] [facility] Department [place] [address] * POCT glucose (11/02/2024 5:13 PM CDT) Glucose, POC 150 70 - 199 mg/dL Glucose comment 1 RN/ Notified [facility] Blood 11/02/2024 5:1 3 PM CDT 11/02/2024 5:13 PM CDT Juan J Heller MD LAB POCT ORDERABLES - DEVICE Final Result Performing Organization Address [facility] Co de Phone Number [address] [place] [address] * POCT glucose (11/02/2024 12:32 PM CDT) Glucose, POC 173 70 - 199 mg/dL Glucose comment 1 RN/ Notified [facility] Blood 11/02/2024 12:3 2 PM CDT 11/02/2024 12:32 PM CDT Juan J Heller MD LAB POCT ORDERABLES - DEVICE Final Result Performing Organization Address [facility] Co de Phone Number [address] [place] [address] * POCT glucose (11/02/2024 7:50 AM CDT) Glucose, POC 184 70 - 199 mg/dL Glucose comment 1 RN/ Notified [facility] Blood 11/02/2024 7:50 AM CDT 11/02/2024 7:50 AM CDT Juan J Heller MD LAB POCT ORDERABLES - DEVICE Final Result Performing Organization Address City/[facility] Co de Phone Number [address] [place] [address] * Hepatitis B surface antibody (immune status) Blood (11/02/2024 7:14 AM CDT) Pathologist [facility] HBsAb (immune status) Reactive Comment: Interpretive Data [...] HBsAb (immune status) index 628.0 mIUnits/m L [facility] Blood 11/02/2024 7:14 AM CDT 11/02/2024 7:32 AM CDT Rohan Funes MD LAB MICROBIOLOGY - GENERAL ORDERABLES Final Result Performing Organization Address City/[facility]/ZIP Co de Phone Number [address] D[employer] [place] [address] * Hepatitis B Surface Antigen Blood (11/02/2024 7:14 AM CDT) Pathologist [facility] HepBsAg Nonreactive Nonreactive Blood 11/02/2024 7:14 AM CDT 11/02/2024 7:32 AM CDT Rohan Funes MD LAB MICROBIOLOGY - GENERAL ORDERABLES Final Result Performing Organization Address [facility] Co de Phone Number [address] [address] * (ABNORMAL) eGFR (11/02/2024 3:48 AM CDT) [facility] eGFR 8(L) >=60 mL/min/1. 73 m2 Comment: [...] 4:01 AM CDT us Brad Sebastien Smallwood SYSTEMS DEVELOPER LAB BLOOD ORDERABLES Fin al Result [facility] [address] [facility] Department [place] [address] * Differential, auto (11/02/2024 3:48 AM CDT) Pathologist [facility] Neutrophil abs 5.44 1.50 - 6.50 K/cumm Imm gran abs 0.03 0.00 - 0.10 K/cumm [facility] Lymphocyte abs 2.16 0.80 - 3.30 K/cumm [facility] Monocyte abs 0.62 0.20 - 0.80 K/cumm [facility] Eosinophil abs 0.12 0.00 - 0.50 K/cumm [facility] Basophil abs 0.02 0.00 - 0.10 K/cumm [facility] Neutrophil pct 64.9 % [facility] Comment: Interpretive Data Percent cell count reference ranges are not reported, since discordance with absolute values may lead to misinterpretation of CBC data. Current Interpretive Data was last revised on 2017. Imm gran pct 0.4 % [facility] Comment: Interpretive Data Percent cell count reference ranges are not reported, since discordance with absolute values may lead to misinterpretation of CBC data. Current Interpretive Data was last revised on 2017. Lymphocyte pct 25.7 % [facility] Comment: Interpretive Data Percent cell count reference ranges are not reported, since discordance with absolute values may lead to misinterpretation of CBC data. Current Interpretive Data was last revised on 2017. Monocyte pct 7.4 % [facility] Comment: Interpretive Data Percent cell count reference ranges are not reported, since discordance with absolute values may lead to misinterpretation of CBC data. Current Interpretive Data was last revised on 2017. Eosinophil pct 1.4 % [facility] Comment: Interpretive Data Percent cell count reference ranges are not reported, since discordance with absolute values may lead to misinterpretation of CBC data. Current Interpretive Data was last revised on 2017. Basophil pct 0.2 % [facility] Comment: Interpretive Data Percent cell count reference ranges are not reported, since discordance with absolute values may lead to misinterpretation of CBC data. Current Interpretive Data was last revised on 2017. Blood 11/02/2024 3:48 AM CDT 11/02/2024 4:01 AM CDT us Brad Sebastien Smallwood SYSTEMS DEVELOPER LAB BLOOD ORDERABLES Fin al Result [facility] [address] [facility] Department [place] [address] * (ABNORMAL) CBC with auto differential (11/02/2024 3:48 AM CDT) WBC 8.39 3.80 - 9.90 K/cumm Hgb 7.2(L) 11.9 - 15.5 g/dL [facility] Hct 22.3(L) 35.6 - 45.5 % [facility] Plt 186 150 - 400 K/cumm [facility] MPV 10.9 9.1 - 12.3 fL [facility] RBC 2.20(L) 3.90 - 5.20 M/cumm [facility] MCV 101.4(H) 81.3 - 96.4 fL [facility] MCH 32.7 27.1 - 33.3 pg [facility] MCHC 32.3 32.3 - 35.7 g/dL [facility] RDW CV 13.5 11.1 - 14.9 % [facility] RDW SD 49.7(H) 35.7 - 48.1 fL [facility] NRBC abs 0.00 0.00 - 0.01 K/cumm [facility] Blood 11/02/2024 3:48 AM CDT 11/02/2024 4:01 AM CDT [facility] SYSTEMS DEVELOPER LAB BLOOD ORDERABLES Fin al Result Performing Organization Address [facility] Co de Phone Number [address] [address] * Folate (11/02/2024 3:48 AM CDT) Pathologist [facility] Folic acid 7.0 >=5.0 ng/mL Blood 11/02/2024 3:48 AM CDT 11/02/2024 4:01 AM CDT [facility] SYSTEM[facility] DEVELOPER LAB BLOOD ORDERABLES Fin al Result Performing Organization Address [facility] de Phone Number [address] [address] * (ABNORMAL) Basic metabolic panel (11/02/2024 3:48 AM CDT) Pathologist [facility] Sodium 135 135 - 145 mmol/L Potassium, pl 4.6 3.3 - 4.9 mmol/L [facility] Chloride 99 97 - 110 mmol/L [facility] CO2 24 22 - 32 mmol/L [facility] Anion gap 12 2 - 15 mmol/L [facility] BUN 64(H) 6 - 25 mg/dL [facility] Creatinine 5.43(H) 0.60 - 1.10 mg/dL [facility] Glucose 227(H) 70 - 199 mg/dL [facility] Comment: Interpretive Data Fasting glucose [...] 2022. Calcium 9.0 8.5 - 10.3 mg/dL [facility] Blood 11/02/2024 3:48 AM CDT 11/02/2024 4:01 AM CDT [facility] SYSTEMS DEVELOPER LAB BLOOD ORDERABLES Fin al Result Performing Organization Address [facility] Co de Phone Number [address] [place] [address] * Lactate (11/01/2024 10:05 PM CDT) Lactate 1.4 0.7 - 2.0 mmol/L Blood 11/01/2024 10:0 5 PM CDT 11/01/2024 10:15 PM CDT [facility] LAB BLOOD ORDERABLES Fin al Result Performing Organization Address [facility] Co de Phone Number [address] [address] * (ABNORMAL) Erythrocyte sedimentation rate (11/01/2024 10:05 PM CDT) Erythrocyte sedimentation rate 43(H) 1 - 30 mm/hr Blood 11/01/2024 10:0 5 PM CDT 11/01/2024 10:15 PM CDT [facility] LAB BLOOD ORDERABLES Fin al Result Performing Organization Address [facility] de Phone Number [address] [place] [address] * CRP (acute phase) (11/01/2024 10:05 PM CDT) CRP 3.6 <=10.0 mg/L Blood 11/01/2024 10:0 5 PM CDT 11/01/2024 10:15 PM CDT [facility] SYSTEMS DEVELOPER LAB BLOOD ORDERABLES Fin al Result Performing Organization Address City/[facility]/ZIP Co de Phone Number [address] [address] * Phosphorus (11/01/2024 10:05 PM CDT) Phosphorus, pl 4.3 2.3 - 4.5 mg/dL Blood 11/01/2024 10:0 5 PM CDT 11/01/2024 10:15 PM CDT [facility] [employer]erner[employer] SYSTEMS DEVELOPER LAB BLOOD ORDERABLES Fin al Result Performing Organization Address [facility] de Phone Number [address] [address] * Magnesium (11/01/2024 10:05 PM CDT) [facility] Magnesium 1.5 1.4 - 2.5 mg/dL Blood 11/01/2024 10:0 5 PM CDT 11/01/2024 10:15 PM CDT [facility] Tabernero Rufin SYSTEMS DEVELOPER LAB BLOOD ORDERABLES Fin al Result Performing Organization Address [facility] de Phone Number [address] [address] * (ABNORMAL) Hemoglobin A1c (11/01/2024 10:05 PM CDT) Hgb A1C 7.1(H) 4.0 - 5.6 % Estimated Average Glucose 157 mg/dL [facility] Comment: The ADA recommends reporting an estimated Average Glucose (eAG) with all Hemoglobin A1c results using the equation derived from a study of 507 normal and diabetic adults. Minority populations were underrepresented and children were not included. (Diabetes Care 31:5613-4521, 2008). The eAG is not equivalent to a fasting glucose. Blood 11/01/2024 10:0 5 PM CDT 11/01/2024 10:15 PM CDT [facility] SYSTEMS DEVELOPER LAB BLOOD ORDERABLES Fin al Result Performing Organization Address [facility] Co de Phone Number [address] [address] * Vitamin B12 (11/01/2024 10:05 PM CDT) Vitamin B12 584 230 - 1,250 pg/mL Blood 11/01/2024 10:0 5 PM CDT 11/01/2024 10:15 PM CDT [facility] LAB BLOOD ORDERABLES Fin al Result Performing Organization Address [facility] de Phone Number [address] [address] * (ABNORMAL) Lipid panel (11/01/2024 10:05 PM [...] revised on 2018. Triglycerides 147 <=149 mg/dL [facility] Comment: Interpretive Data Ages < [...] last revised on 2018. Chol/HDL ratio 3 [facility] Blood 11/01/2024 10:0 5 PM CDT 11/01/2024 10:15 PM CDT us Brad Smallwood NP LAB BLOOD ORDERABLES Fin al Result Performing Organization Address [facility] Co de Phone Number [address] [address] * (ABNORMAL) POCT glucose (11/01/2024 9:59 PM CDT) Glucose, POC 217(H) 70 - 199 mg/dL Glucose comment 1 Use This Result [facility] Glucose comment 2 RN/MD Notified [facility] Blood 11/01/2024 9:59 PM CDT 11/01/2024 9:59 PM CDT Des Lopez MD LAB POCT ORDERABLES - DEVICE F inal Result Performing Organization Address [facility] de Phone Number [address] [address] * (ABNORMAL) Urinalysis reflex to microscopic and culture Urine (11/01/2024 7:23 PM CDT) Color, ur Straw Yellow Clarity, ur Clear Clear [facility] Specific gravity, ur 1.007 1.003 - 1.030 [facility] pH, urine 7.5 [facility] Comment: Interpretive Data U rine pH is affected by diet, medications, systemic acid-base disturbances, and renal tubular function. pH may affect urinary stone formation. For example, urine pH below 6.0 may help reduce the tendency for calcium phosphate stones and pH greater than 6.0 may reduce the tendency for uric acid stone formation. Source: [facility] [place] Current Interpretive Data was last revised on 2017 Protein, ur ql 1+(A) Negative [facility] Glucose, ur ql 3+(A) Negative [facility] Ketones, ur Negative Negative [facility] Bilirubin, ur Negative Negative [facility] Blood, ur Negative Negative [facility] Urobilinogen, ur <2.0 <2.0 mg/dL [facility] Nitrite, ur Negative Negative [facility] Leukocyte esterase, ur 4+(A) Negative [facility] UA reflex comment Reflex to microscopic UA will be performed. [facility] Urine 11/01/2024 7:23 PM CDT 11/01/2024 7:37 PM CDT Tahmina Palencia MD LAB MICROBIOLOGY - GEN ERAL ORDERABLES Final Result Performing Organization Address [facility] Co de Phone Number [address] [place] [address] * (ABNORMAL) Urinalysis, microscopic only (11/01/2024 7:23 PM CDT) WBC, ur >50(A) 0 - 5 /HPF RBC, ur 0-2 0 - 2 /HPF [facility] Epithelial cells, squamous, ur 1-5 0 - 5 /HPF [facility] Culture Reflex Comment Reflex to urine culture will be performed. [facility] Urine 11/01/2024 7:23 PM CDT 11/01/2024 7:37 PM CDT Tahmina Palencia MD LAB URINE ORDERABLES F inal Result Performing Organization Address [facility] Co de Phone Number [address] [place] [address] * (ABNORMAL) Urine culture Urine (11/01/2024 7:23 PM CDT) Report Final Report: Greater than or equal to 100,000 colonies/mL of Proteus mirabilis Plus growth of clinically insignificant bacterial shruti. (.) Comment:Testing performed by : [facility], [address] [place]., [address] Organism PROTEUS MIRABILIS NILSA Organism PLUS GROWTH OF CLINICALLY INSIGNIFICANT SHRUTI. NILSA Urine 11/01/2024 7:23 PM CDT 11/02/2024 12:58 AM CDT Narrative NILSA - 11/04/2024 10:48 AM CDT Urine culture reflexed based upon urinalysis results. Testing performed by [facility] Microbiology Laboratory ([phone]) Organism Antibiotic Method Susceptibility Proteus mirabilis Ampicillin [...] - GEN ERAL ORDERABLES Final Result [facility] Department [place] [address] * CT Chest Abdomen Pelvis W Contrast [...] Salvador Bronson M.D. KT T: Report ID: [id number] Reading Location: [id number] Procedure Note Salvador Bronson MD - 11/01/2024 [...] Salvador Bronson M.D. KT T: Report ID: [id number] Reading Location: [id number] us Tahmina Palencia MD IMG CT PROCEDURES [...] and well aerated. ORBITS: No acute abnormality. [place] ocular lenses replaced bilaterally. OTHER: No other significant abnormality. INTRACRANIAL VESSELS [place]: The anterior, middle, posterior cerebral [...] Redd Hendrickson M.D. CHANDA T: Report ID: [id number] Reading Location: [place] [id number] Procedure Note Redd Hendrickson MD - 11/01/2024 [...] and well aerated. ORBITS: No acute abnormality. [place] ocular lenses replaced bilaterally. OTHER: No other significant abnormality. INTRACRANIAL VESSELS [place]: The anterior, middle, posterior cerebral [...] signed by Redd ARMAS T: Report ID: [id number] Reading Location: [id number] us Tahmina Palencia MD IMG CT PROCEDURES [...] LAB BLOOD ORDERABLES F inal Result NILSA [address] [facility] Department [place] [address] * CT Head WO Contrast [...] Shayne Landaverde M.D. AM T: Report ID: [id number] Reading Location: [id number] Procedure Note Shayne Landaverde MD - 11/01/2024 [...] PM - Electronically signed by Shayne Landaverde M.D., AM T: Report ID: [id number] Reading Location: [id number] Brittney CUEVA IMDiaz CT PROCEDURES Final Re [...] by James Javier M.D. T: Report ID: [id number] Reading Location: [id number] Procedure Note James Javier MD - 11/01/2024 [...] James Javier M.D. MZ T: Report ID: [id number] Reading Location: [place] [address] Tahmina Palencia MD IMG XR PROCEDURES [place] [...] ORDERABLES F inal Result Performing Organization Address [facility] de Phone Number NILSA [address] [place] [address] * (ABNORMAL) eGFR (11/01/2024 2:03 PM CDT) [...] ORDERABLES F inal Result Performing Organization Address [facility] Co de Phone Number NILSA [address] [place] [address] * (ABNORMAL) Differential, auto (11/01/2024 2:03 PM CDT) Pathologist [facility] Neutrophil abs 7.67(H) 1.50 - 6.50 K/cumm Imm gran abs 0.05 0.00 - 0.10 K/cumm [facility] Lymphocyte abs 1.67 0.80 - 3.30 K/cumm [facility] Monocyte abs 0.43 0.20 - 0.80 K/cumm [facility] Eosinophil abs 0.11 0.00 - 0.50 K/cumm [facility] Basophil abs 0.02 0.00 - 0.10 K/cumm [facility] Neutrophil pct 77.1 % [facility] Comment: Interpretive Data Percent cell count reference ranges are not reported, since discordance with absolute values may lead to misinterpretation of CBC data. Current Interpretive Data was last revised on 2017. Imm gran pct 0.5 % [facility] Comment: Interpretive Data Percent cell count reference ranges are not reported, since discordance with absolute values may lead to misinterpretation of CBC data. Current Interpretive Data was last revised on 2017. Lymphocyte pct 16.8 % [facility] Comment: Interpretive Data Percent cell count reference ranges are not reported, since discordance with absolute values may lead to misinterpretation of CBC data. Current Interpretive Data was last revised on 2017. Monocyte pct 4.3 % [facility] Comment: Interpretive Data Percent cell count reference ranges are not reported, since discordance with absolute values may lead to misinterpretation of CBC data. Current Interpretive Data was last revised on 2017. Eosinophil pct 1.1 % [facility] Comment: Interpretive Data Percent cell count reference ranges are not reported, since discordance with absolute values may lead to misinterpretation of CBC data. Current Interpretive Data was last revised on 2017. Basophil pct 0.2 % [facility] Comment: Interpretive Data Percent cell count reference ranges are not reported, since discordance with absolute values may lead to misinterpretation of CBC data. Current Interpretive Data was last revised on 2017. Blood 11/01/2024 2:03 PM CDT 11/01/2024 2:05 PM CDT us Tahmina Palencia MD LAB BLOOD ORDERABLES F inal Result NILSA RODRIGES [address] [facility] Department [place] [address] * (ABNORMAL) Pro B-type natriuretic peptide (11/01/2024 2:03 PM CDT) Pathologist [facility] NT-proBNP 1,903(H) <=300 pg/mL Comment: Interpretive Comments: [...] MD LAB BLOOD ORDERABLES F inal Result QXCGBD [address] [facility] Department [place] [address] * (ABNORMAL) CBC with auto differential (11/01/2024 2:03 PM CDT) Pathologist [facility] WBC 9.95(H) 3.80 - 9.90 K/cumm Hgb 8.8(L) 11.9 - 15.5 g/dL [facility] Hct 27.2(L) 35.6 - 45.5 % [facility] Plt 207 150 - 400 K/cumm [facility] MPV 10.6 9.1 - 12.3 fL [facility] RBC 2.66(L) 3.90 - 5.20 M/cumm [facility] MCV 102.3(H) 81.3 - 96.4 fL [facility] MCH 33.1 27.1 - 33.3 pg [facility] MCHC 32.4 32.3 - 35.7 g/dL [facility] RDW CV 13.4 11.1 - 14.9 % [facility] RDW SD 50.4(H) 35.7 - 48.1 fL [facility] NRBC abs 0.00 0.00 - 0.01 K/cumm [facility] Blood 11/01/2024 2:03 PM CDT 11/01/2024 2:05 PM CDT Tahmina Palencia MD LAB BLOOD ORDERABLES F inal Result [facility] [address] [facility] Department [place] [address] * (ABNORMAL) Comprehensive metabolic panel (11/01/2024 2:03 PM CDT) Sodium 133(L) 135 - 145 mmol/L Potassium, pl 4.3 3.3 - 4.9 mmol/L [facility] Chloride 95(L) 97 - 110 mmol/L [facility] CO2 23 22 - 32 mmol/L [facility] Anion gap 15 2 - 15 mmol/L [facility] BUN 55(H) 6 - 25 mg/dL [facility] Creatinine 4.86(H) 0.60 - 1.10 mg/dL [facility] Glucose 290(H) 70 - 199 mg/dL [facility] Comment: Interpretive Data Fasting glucose [...] 2022. Calcium 9.2 8.5 - 10.3 mg/dL [facility] Bilirubin, total 0.2 0.1 - 1.2 mg/dL [facility] Protein, pl 7.0 6.5 - 8.5 g/dL [facility] Albumin 3.7 3.5 - 5.0 g/dL [facility] Alk phos 116 40 - 130 Units/L [facility] ALT 58(H) 7 - 45 Units/L [facility] AST 26 10 - 45 Units/L [facility] Blood 11/01/2024 2:03 PM CDT 11/01/2024 2:05 PM CDT us Tahmina Palencia MD LAB BLOOD ORDERABLES F inal Result NILSA [address] [facility] Department [place] [address] * ECG 12 lead (11/01/2024 1:59 PM CDT) Pathologist [facility] Ventricular Rate EKG/Min [address] [facility] Atrial Rate [address] [facility] MA-Interval (MSEC) [address] [facility] QRS-Interval (MSEC) [address] [facility] QT-Interval (MSEC) [address] [facility] QTc [address] [facility] P [place] [address] [facility] R [place] [address] [facility] T [place] [address] [facility] Diagnosis Normal sinus rhythm Normal ECG When compared with ECG of 12-JUL-2024 11:48, No significant change was found Confirmed by DIAMOND GUTIERREZ M.D. ([id number]) on 11/02/2024 11:07:33 PM [facility] 11/01/2024 1:59 PM CDT 11/02/2024 11:07 PM CDT us Tahmina Palencia MD ECG ORDERABLES Final Result [facility] * (ABNORMAL) Urinalysis reflex to microscopic and culture Urine, clean voided (10/31/2024 9:47 AM CDT) Color, ur Mikayla Yellow Comment:Testing performed by : [facility], [address] [place] [address]., [address] Clarity, ur Turbid(A) Clear NILSA Comment:Testing performed by : [facility], [address] [place] [address]., [address] Specific gravity, ur 1.008 1.003 - 1.030 NILSA Comment:Testing performed by : [address] [address] pH, urine 8.0 NILSA Comment: Interpretive Data U rine pH is affected by diet, medications, systemic acid-base disturbances, and renal tubular function. pH may affect urinary stone formation. For example, urine pH below 6.0 may help reduce the tendency for calcium phosphate stones and pH greater than 6.0 may reduce the tendency for uric acid stone formation. Source: [facility] [place] Current Interpretive Data was last revised on 2017 Testing performed by: [address] [address] Protein, ur ql 2+(A) Negative NILSA Comment:Testing performed by : [address] [address] Glucose, ur ql 3+(A) Negative NILSA Comment:Testing performed by : [address] [address] Ketones, ur Negative Negative NILSA Comment:Testing performed by : [address] [address] Bilirubin, ur Negative Negative NILSA Comment:Testing performed by : [address] [address] Blood, ur Trace(A) Negative NILSA Comment:Testing performed by : [address] [address] Urobilinogen, ur <2.0 <2.0 mg/dL NILSA Comment:Testing performed by : [address] [address] Nitrite, ur Negative Negative NILSA Comment:Testing performed by : [address] [address] Leukocyte esterase, ur 4+(A) Negative NILSA RODRIGES Comment:Testing performed by : [address] [address] UA reflex comment Reflex to microscopic UA will be performed. NILSA Comment:Testing performed by : [address] [address] Urine, clean voided 10/31/2024 9:47 AM CDT 10/31/2024 9:50 AM CDT Cherelle Corcoran MD LAB MICROBIOLOGY - GENERAL ORDERABLES Final Result Performing Organization Address [facility] Phone Number [facility] Department [place] [address] * (ABNORMAL) Urinalysis, microscopic only (10/31/2024 9:47 AM CDT) WBC, ur 6-10(A) 0 - 5 /HPF Comment:Testing performed by : [address] [address] RBC, ur 0-2 0 - 2 /HPF NILSA Comment:Testing performed by : [address] [address] Bacteria, ur Trace(A) NILSA Comment:Testing performed by : [address] [address] Culture Reflex Comment Reflex conditions for urine culture (WBC >10) not met. NILSA Comment:Testing performed by : [address] [address] Urine, clean voided 10/31/2024 9:47 AM CDT 10/31/2024 9:50 AM CDT Cherelle Corcoran MD LAB URINE ORDERAB LES Final Result CARLOS ENRIQUENER MH [address] [facility] Department [place] [address] * XR Chest PA Lateral 2 Views [...] Edwardo Louis M.D. RW: ADAMARIS Report ID: [id number] Reading Location: [id number] Procedure Note Edwardo Louis MD - 10/24/2024 [...] Edwardo Louis M.D. RW: ADAMARIS Report ID: [id number] Reading Location: [id number] Cherelle Corcoran MD IMG XR PROCEDURES Final Result * CT CORONARY CALCIUM SCORING (10/17/2024 9:30 AM CDT) Anatomical Region Laterality Modality Chest Computed Tomogra phy Historical Provider IMG CT PROCEDURES Final R esult * POCT glucose (09/13/2024 9:47 AM CDT) Glucose, POC 176 70 - 199 mg/dL Glucose comment 1 RN/MD Notified [facility] Blood 09/13/2024 9:47 AM CDT 09/13/2024 9:47 AM CDT Jaya Grier MD LAB POCT ORDERABLES - DEVICE Fin al Result NILSA [address] [place] [address] * Surgical pathology (09/13/2024 9:28 AM CDT) Tissue specimen (specimen) (Esophageal biopsy) 09/13/2024 9:28 AM CDT Comment:Cold bx Narrative PATHOLOGY [facility] - 09/14/2024 1:55 PM CDT [facility] Department of Pathology [address] [place] [id number] Note to Patients: This report may contain [...] the details. Final Report Patient Name: SIXTO CHAKRBAORTY : 1950 (Age: 73) Gender: F Address: [address] [place] [address] Hospital #: [id number] Service: Gastro Location: Patient Type: [facility] OUT[facility] Taken: 09/13/2024 Received: 09/13/2024 Accessioned: [...] Labeled A1. Jar 0. jjb/09/13/2024 13:20 CAMILA Johnsno, PA (ASCP) Microscopic slide review and interpretation for this case was performed at [facility], Department of Surgical Pathology, [address] [facility], [place] [id number], [place] [address] CLIA # [id number] us Jaya Grier MD LAB PATHOLOGY ORDERABLES Final R esult PATHOLOGY [facility] * EGD (09/13/2024 9:17 AM CDT) Anatomical Region Laterality Modality Other Narrative Procedure Note Jaya Grier MD - 09/13/2024 9:17 AM CDT [facility] Patient Name: Sixto Chakraborty Procedure Date: 09/13/2024 9:17 AM Date of : 1950 Admit Type: Outpatient Age: 73 Gender: Female Attending MD: Jaya Grier M.D. Room: [facility] RO[facility] 03 Note Status: Finalized Procedure: [...] On: 09/13/2024 9:17 AM Recognized by the [place] for promoting quality in endoscopy us Jaya Grier MD ENDOSCOPY PROCEDURES Final Resul t * (ABNORMAL) POC Blood Gas and Chemistries, Venous - (09/13/2024 8:54 AM CDT) pH,chris POC 7.34 7.32 - 7.43 pCO2, chris POC 51(H) 40 - 50 mmHg NILSA RODRIGES pO2,chris POC 22 mmHg [facility] Comment: Interpretive Data No reference range established. Current interpretive data was last revised 2020. HCO3, chris (Calc) POC 27 20 - 30 mmol/L [facility] Base excess, chris POC 1 mmol/L [facility] Comment: Interpretive Data No reference range established. Current interpretive data was last revised 2020. Hemoglobin, chris POC 10.9(L) 11.9 - 15.5 g/dL [facility] Hematocrit, chris POC 32.0(L) 35.6 - 45.5 % [facility] Sodium, chris POC 141 135 - 145 mmol/L [facility] Potassium, chris POC 4.4 3.3 - 4.9 mmol/L [facility] Comment: Interpretive Data This method is not able to assess for hemolysis, which may falsely increase potassium concentrations. If further testing is needed to evaluate this result, consider in-laboratory plasma potassium. Current Interpretive Data was last revised on 2022. Glucose, chris POC 170 70 - 199 mg/dL [facility] Ionized Calcium, chris POC 4.90 4.50 - 5.10 mg/dL [facility] Blood 09/13/2024 8:54 AM CDT 09/13/2024 8:54 AM CDT Jaya Grier MD LAB POCT ORDERABLES - DEVICE Fin al Result [facility] [address] [facility] Department [place] [address] * MA INJECTION SINGLE/MID LEVEL GAME DESIGNER TRIGGER POINT 1/2 MUSCLES (09/08/2024 9:00 AM [...] well with no immediate complications Brook Muhammad SYSTEMS DEVELOPER IN CLINIC/BEDSIDE ORDERABLE S Final Result * CT Head WO Contrast (09/07/2024) Anatomical Region Laterality Modality Head and Neck N/A Computed Tomogra phy Historical Provider IMG CT PROCEDURES Final R esult * XR Shoulder Right 2 or More Views (09/07/2024) Anatomical Region Laterality Modality Upper Extremities, Shoulder Right Radi ographic Imaging Result [facility] Historical Provider IMG XR PROCEDURES Final R esult * POCT hemoglobin A1c (08/22/2024 8:55 AM CHANNEL SALES MANAGER) Hemoglobin A1C, POC 7.7 4.0 - 5.6 % Blood 08/22/2024 8:55 AM CHANNEL SALES MANAGER Result [facility] Smith Gibbs MD POINT OF CARE TEST ORDERABLE S Final Result * Diabetic Eye Exam (07/27/2024 12:37 PM CHANNEL SALES MANAGER) Result [facility] Historical Provider HEALTH MAINTENANCE Final Result * Colonoscopy (03/01/2024 8:49 AM CDT) Anatomical Region Laterality Modality Other Narrative Procedure Note Jaya Grier MD - 03/01/2024 8:49 AM CDT [facility] Patient Name: Sixto Chakraborty Procedure Date: 03/01/2024 8:49 AM Date of : 1950 Admit Type: Outpatient Age: 73 Gender: Female Attending MD: Jaya Grier M.D. Room: [facility] 06 Note Status: Finalized Procedure: [...] The scope was passed under direct vision.The [id number]-[id number] colonoscope was introduced through theanus and advanced [...] On: 03/01/2024 8:49 AM Recognized by the [place] for promoting quality [...] taking vitamin-D. History of end-stage renal disease. Candle Cutter/Model: Biopharmacopae A (S/N [id number]) CLINICAL INFORMATION: Current height: 61 inches Maximum [...] Rafaela Paulino M.D. TW: TW Report ID: [id number] Reading Location: [id number] Procedure Note Rafaela Paulino MD - 01/22/2024 EXAM DESCRIPTION: DEXA AXIAL SKELETON BONE DENSITY 1 OR MORE SITES REASON FOR STUDY: 73 y/o year old F with given history of: Post menopausal status. History of taking vitamin-D. History of end-stagerenal disease. Candle Cutter/Model: Biopharmacopae A (S/N [id number]) CLINICAL INFORMATION: Current height: 61 inches Maximum [...] Rafaela Paulino M.D. TW: FAIZAN Report ID: [id number] Reading Location: [id number] Cherelle Corcoran MD IMG DXA PROCEDURE S [...] age 40, based on guidelines of the [place] [employer] (ACR Practice Parameter for the Performance of Screening and Diagnostic Mammography) and [place]. For women [...] 19. Hep B core IgM Nonreactive Nonreactive [facility] Comment: Interpretive Data If HepB Core IgM Ab is reported as Equivocal, a new sample should be drawn in two weeks for testing. Current interpretive data was last revised on 19. Hep C Ab Nonreactive Nonreactive [facility] Comment: Interpretive Data Nonreactive: Antibodies to HCV [...] last revised on 2019. HepBsAg Nonreactive Nonreactive [facility] Blood 10/15/2023 6:50 AM CDT 10/15/2023 7:07 AM CDT Jimbo Strauss MD LAB MICROBIOLOGY - GENERAL FREDDY HALEY Final Result Performing Organization Address [facility]/ZIP Co de Phone Number NILSA [address] [facility] Department [place] [address] * (ABNORMAL) Albumin Creatinine Ratio, Urine (10/10/2022 11:39 AM CDT) Albumin Ur 3,240.2 mg/L [facility] Comment: Interpretive Data No reference range established. Current interpretive data was last revised 2018. Testing performed by: [address] [address] Creatinine Ur 74.8 mg/dL [facility] Comment: Interpretive Data No reference range established. Current interpretive data was last revised 2018. Testing performed by: [address] [address] Albumin Creatinine Ratio, Ur 4,332(H) 1 - 29 mg/g [facility] Comment:Testing performed by : [address] [address] Urine 10/10/2022 11:3 9 AM CDT 10/10/2022 1:45 PM CDT Markie Ryan MD LAB URINE ORDERABLES Final Re sult Performing Organization Address City/[facility]/ZIP Co de Phone Number NILSA [address] [facility] Department [place] [address] from Last 3 Months or Most Recently Relevant to Health Maintenance Insurance MEDICARE [facility] Address: [address] [place] [id number] MEDICARE IDPA MEDICARE IDPA MEDICARE [facility] Address: [address] [address] [place] [address] [facility] Advance Directives For more information, please contact: [phone] Documents on File Type Date Recorded Patient Traveling Secretary Expl anation ADVANCE DIRECTIVE 07/15/2024 7:58 AM Power of Profile Grinder Technician-Medical ADVANCE DIRECTIVE 02/02/2024 12:34 PM Erik r of Profile Grinder Technician-Medical * Full Code (Latest Code Status [...] Gayle Daughter Health Care Agent Care Teams Practice Physician Relationship Specialty Start Date End Date Cherelle Corcoran MD PCP - General Family Medicine 08/30/19 Mark Queen MD Consulting Physician Infectious Diseases 01/10/20 Rudolph Welch MD [address] [facility] [address] [place] [address] Consulting Physician Infectious Diseases 12/05/22 Markie Ryan MD [address] [facility] [address] [place] [address] Consulting Physician Nephrology 12/05/22 [place] [address] [place] [address] Consulting Physician Nephrology 10/22/23 Jaya Grier MD [address] [facility] [address] [place] [address] Consulting Physician Gastroenterology 02/01/24 Edgardo Kauffman MD [address] [facility] [address] [facility] [address] [place] [address] Surgeon Vascular Surgery 07/15/24 Macrina Mike RN [address] [place] [address] [address] [place] [address] [employer]ured [employer] Maker 11/07/24
--- OUTSIDE RECORDS SUMMARY | 2024-11-09 10:03 | XMS_ITS | CONTINUITY OF CARE DOCUMENT ---
Author Name dougiephuongpallavi dougiebryanna Address Unknown Organization [facility] Address [address] [facility] [address] [place] [address] Phone [phone] Care Team Providers Care Special Needs Librarian Name Role Phone Jared YOUNG, Meghann Unavailable [phone] LONDON YOUNG, DUANE Unavailable [phone] LONDON YOUNG, DUANE Unavailable [phone] PROBLEMS Condition Status Date Provider Notes Cardiology examination active Audie Blas arthritis active Audie Blas CHF active Audie Blas Dementia active Audie Blas Depression active Audie Blas Diabetic neuropathy active Audie Blas Hyperlipidemia active Audie Blas HTN essential active Audie Blas ESRD - On Hemodialysis active Audie Blas Diabetes mellitus, Type II active Audie Be atty Schizophrenia active Audie Blas anemia active Audie Blas Parkinson's disease active Audie Blas ENCOUNTERS Date Type Provider Location Encounter Diag nosis 08/15 - 08/15 In-person encounter Office Visit Meghann Coleman MD [facility] 03/07 - 07/06 In-person encounter Office Visit Meghann Coleman MD [facility] 11/29 - 11/30 In-person encounter Office Visit Meghann Coleman MD [facility] Cardiology examinationarthritisCHFDementiaDepressionDiabetic neuropathyHyperlipidemiaHTN essentialESRD - On HemodialysisDiabetes mellitus, Type IISchizophreniaanemiaParkinson's disease VITAL SIGNS Date Observation Value Provider Body Mass Index (Ratio) 25.60 kg/m2 Kyler Coleman MD blood pressure, diastolic 76 mm[Hg] Madisyn johnson [facility] blood pressure, systolic 114 mm[Hg] Sheree chatterjee [facility] oxygen saturation, oximetry 96 % Brandie [facility] pulse rate 75 /min Brandie [facility] blood pressure, cuff size regular Madisyn johnson [facility] weight E&M 140 [lb_av] [facility] 62 [in_i] [facility] Body Mass Index (Ratio) 25.60 kg/m2 Kyler Coleman MD blood pressure, diastolic 57 mm[Hg] Nataly pierson [facility] blood pressure, systolic 119 mm[Hg] Christine ramirez [facility] oxygen saturation, oximetry 98 % Sugar [facility] rate 56 [facility] E&M 12 /[facility] weight E&M 140 [lb_av] Sugra [facility] blood pressure, cuff size regular Anand zheng Parrish height E&M 62 [in_i] Anandradhacarol ann Parrish Body Mass Index (Ratio) 24.87 kg/m2 Idel la Sommer blood pressure, diastolic 91 mm[Hg] Li nkLogic blood pressure, systolic 192 mm[Hg] Ana kLogic blood pressure, cuff size regular Ja rret blood pressure, diastolic 91 mm[Hg] Ja rret blood pressure, systolic 192 mm[Hg] Jar ret 06/10 pulse rate 69 /min Nolan y height E&M 62 [in_i] Nolan y oxygen saturation, oximetry 98 % weight E&M 136 [lb_av] Nolan y respiratory rate E&M 16 /min ALLERGIES No [...] 2nd Gen Pen Needle 32 gauge x 532 needle active USE DIRECTED FOUR TIMES DAILY Easy Touch 32 gauge x 5/32 needle active USE DIRECTED FOUR TIMES DAILY Nolan BD Ultra-Fine Arlyn Pen Needle 32 gauge x 532 needle active USE DIRECTED FOUR TIMES DAILY [...] Meghann amaya MD number of grandchildren Meghann Bonillari RESOURCE TECHNICIAN smoking status Never smoker Shiloh Donlu ri RESOURCE TECHNICIAN smoking status Never smoker INSURANCE PROVIDERS Payer name Policy type / Coverage type [place] red republican [employer] [facility] Medicaid 0 [id number] [place] MED[place]ARE PART B Medicare [id number] ADVANCE DIRECTIVES Name Date DISCUSSED - NO [...] for the patient. Meghann Coleman MD Cardiology: Carol Ann mcgovernars compensated, continue current medications N o SOB [...] patient. Meghann Coleman MD Cardiology: p er light coil winder Dr. espinoza [facility] dialysis every other [...] 55 Shiloh Barrientos NP Cardiology: p er light coil winder Dr. espinoza Barrientos NP Cardiology:A1c 8.2 Her updated medication list for this problem includes: Lantus Solostar U-100 Insulin 100 Unit/ml (3 Ml) Insulin Pen (Insulin glargine) Shiloh Barrientos NP Cardiology:Hgb 9.5 Shiloh Barrientos NP Cardiology: A ppears compensated, continue current medications [...] mouth every day Meghann Coleman MD Cardiology:per light coil winder Dr. espinoza Coleman MD Cardiology:Appears c ompensated, continue current medications Meghann Coleman MD Date Name CT, Coronary Calcium Score Arterial Duplex Bi-L ower EX HISTORY OF PROCEDURES Procedure Date Procedure Name Provider Procedure Notes S tatus CT- Coronary CA score Meghann Coleman MD completed Complex e/m visit add on Meghann Coleman MD completed Complex e/m visit add on Isidro Hahn MD completed EKG Meghann Coleman MD complet ed
--- OUTSIDE RECORDS SUMMARY | 2024-11-09 10:03 | XMS_ITS | Clinical Summary ---
Author Organization [facility] Address [address], [address] [address] Phone Care Team Providers Care Plate Printer Name Role Phone Cherelle Corcoran MD Primary [...] - 144 mmol/L 03/11/2019 11:10 AM CDT [facility] POTASSIUM 4.8 3.5 - 5.1 mmol/L 03/11/2019 11:10 AM CDT [facility] CHLORIDE 96(L) 100 - 110 mmol/L 03/11/2019 11:10 AM CDT [facility] CO2, VENOUS 28 22 - 32 mmol/L 03/11/2019 11:10 AM CDT [facility] ANION GAP 17.8 8.0 - 20.0 mmol/L 03/11/2019 11:10 AM CDT [facility] GLUCOSE 216(H) 70 - 99 mg/dL 03/11/2019 11:10 AM CDT [facility] BUN 22 8 - 23 mg/dL 03/11/2019 11:10 AM CDT [facility] CREATININE, BLOOD 0.66 0.60 - 1.10 mg/dL 03/11/2019 11:10 AM [facility] BUN/CREATININE RATIO 33(H) 12 - 20 ratio 03/11/2019 11:10 AM [facility] TOTAL PROTEIN 8.4(H) 6.0 - 8.3 g/dL 03/11/2019 11:10 AM [facility] ALBUMIN 4.3 3.5 - 5.2 g/dL 03/11/2019 11:10 AM [facility] Comment: The colormetric methods used for the determination of Albumin may lead to falsely elevated test results in patients suffering from renal failure or insufficiency due to interference with other proteins. A/G RATIO 1.0 1.0 - 2.0 03/11/2019 11:10 AM [facility] CALCIUM 10.4(H) 8.9 - 10.3 mg/dL 03/11/2019 11:10 AM [facility] T BILI 0.3 <=1.2 mg/dL 03/11/2019 11:10 AM [facility] SGOT (AST) 19 <=32 U/L 03/11/2019 11:10 AM [facility] Comment: Hemolysis present: results may be falsely elevated. SGPT (ALT) 14 <=33 U/L 03/11/2019 11:10 AM [facility] ALKALINE PHOSPHATASE 123(H) 35 - 105 U/L 03/11/2019 11:10 AM [facility] GFR, EST. NONAFRICAN >60 >=60 03/11/2019 11:10 AM [facility] GFR, EST. >60 >=60 019 11:10 AM [facility] Comment: Creatinine Clearance is the preferred criteria for selecting drug dose adjustments in renally impaired patients. The GFR is provided as additional pertinent clinical information. GFR is reported in mL/min/1.73 sq m. Blood specimen (specimen) Venous Catheter (IV) / Unknown 03/11/2019 10:23 AM CDT 03/11/2019 10:46 AM CDT us Ronald Haro MD CHEMISTRY ORDERABLES Final Result Performing Organization Address City/[facility]/ZIP Co de Phone Number [facility] [address] [place] [address] * (ABNORMAL) POCT GLYCOSYLATED HEMOGLOBIN (01/20/2019 9:44 AM CDT) HGB-A1C 15(A) 4 - 6 Comment:above 15 01/20/2019 9:44 AM CDT us Choco Morris PAC POINT OF CARE TESTING (M ANUAL) Final Result * Stool, Occult Blood, Diagnostic (03/30/2017 2:09 PM CDT) OCCULT BLOOD DIAG, GI BLEED Negative Negative 03/30/2017 2:29 PM CDT [facility] Stool specimen (specimen) STOOL SPECIMEN / Unknown Non-Phlebotomy Collection / Unknown 03/30/2017 2:09 PM CDT 03/30/2017 2:23 PM CDT us Anali Ortiz PAC BODY FLUIDS & STOOLS ORDERAB LES Final Result Performing Organization Address City/[facility]/ZIP Co de Phone Number [facility] [address] [place] [address] * CHERYL SCREENING BILATERAL DIGITAL W CAD [...] measures to stabilize the patient. Care Teams Plate Printer Relationship Specialty Start Date End Date Cherelle Corcoran MD [address] [place] [address] PCP - General Family Medicine 02/12/24 Sim López MD [address] [place] [address] Consulting Physician Oncology 02/12/24
--- OUTSIDE RECORDS SUMMARY | 2024-11-09 10:03 | XMS_ITS | Encounter Summary ---
Author Organization [facility] Address [address] [place] [address] Care Team Providers Care Speech Pathology Supervisor Name Role Phone Cherelle Corcoran MD Primary Care Pro vider Mark Queen MD Unavailable [phone] Xenia Padilla LPN Unavailable Sarahy Schmidt PT SKILLED Unavailable Brandie Callejas MA Unavailable Unav ailable Xenia Padilla LPN Unavailable [phone] Samples, Melania Joel RN Unavailable Anam Costa LCSW Unavailable Unavailabl e Samples, Melania Joel RN Unavailable Rudolph Welch MD Unavailable Markie Ryan MD Unavailable [phone] Nadege Ramírez RN Unavailable Dulce Vega RN Unavailable Jimbo Strauss MD Unavailable [phone] Jaya Grier MD Unavailable Edgardo Kauffman MD Unavailable Macrina Mike RN Unavailable Encounter Details Date Type Department Care Team (Late st Contact Info) Description 12/26/2019 Telephone [facility] Nutrition and Diabetic Education [address] [facility] [place] [address] Anastasia Leblanc, RN Social History Tobacco Use [...] file Legal Sex Female 9:03 AM COMMUNICATIONS PROFESSIONAL Gender Identity Female 02/08/2020 6:39 PM CDT [...] CDT COVID19 08/13/2021 08/13/2021 08/24/2021 3:05 AM COMMUNICATIONS PROFESSIONAL COVID: Recovered Comment:Added based on recent COVID infection. 08/24/2021 08/26/2021 12/22/2021 3:05 AM C DT COVID: Suspected Comment:11/15/2021 pt is covid recovered 11/15/2021 11/15/2021 11/15/2021 3:32 PM C DT COVID: Suspected 11/15/2021 11/16/2021 11/16/2021 1:45 AM CDT Human metapneumovirus, conta ct + droplet 11/16/2021 11/16/2021 11/30/2021 3:05 AM C DT COVID: Suspected 05/08/2022 05/08/2022 05/08/2022 4:26 PM COMMUNICATIONS PROFESSIONAL COVID: Suspected 06/19/2022 06/19/2022 06/19/2022 12:37 PM COMMUNICATIONS PROFESSIONAL COVID: Suspected 08/01/2022 08/01/2022 08/01/2022 2:28 PM COMMUNICATIONS PROFESSIONAL COVID: Suspected 10/02/2022 10/02/2022 10/02/2022 8:14 PM CDT MRSA Comment:Toe 11/08/22, 12/12/22 11/08/2022 12/12/2022 06/10/2023 3:05 AM COMMUNICATIONS PROFESSIONAL COVID: Suspected 12/08/2022 12/08/2022 12/08/2022 8:17 PM CDT COVID: Suspected 07/27/2023 07/27/2023 07/28/2023 12:57 AM COMMUNICATIONS PROFESSIONAL COVID: Suspected 10/29/2023 10/30/2023 10/30/2023 10:59 AM CDT 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 12/19/2023 12/19/2023 3:58 PM CDT 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 12/29/2023 06/26/2024 3:05 AM COMMUNICATIONS PROFESSIONAL COVID: Suspected 04/19/2024 04/19/2024 04/20/2024 12:44 AM CDT COVID: Suspected 07/12/2024 07/12/2024 07/12/2024 12:39 PM COMMUNICATIONS PROFESSIONAL COVID: Suspected 07/31/2024 07/31/2024 07/31/2024 2:06 PM COMMUNICATIONS PROFESSIONAL documented as of this encounter Care Teams Speech Pathology Supervisor Relationship Specialty Start Date End Date Cherelle Corcoran MD PCP - General Family Medicine 08/30/19 Mark Queen MD Consulting Physician Infectious Diseases 01/10/20 Xenia Padilla LPN Assistant Professor Of Biology 09/19/21 09/19/21 Sarahy Schmidt LPN [address] [place] [address] [address] [place] [address] ACO Care Litigation Coordinator 11/27/21 12/25/21 Brandie Callejas MA Patient Squad Leader 06/20/22 06/22/22 Xenia Padilla LPN [address] [place] [address] [address] [place] [address] Assistant Professor Of Biology 06/24/22 06/24/22 Samples, Melania Joel RN [address] [place] [address] [address] [place] [address] Assistant Professor Of Biology 07/22/22 08/21/22 Anam Costa LCSW [address] [place] [address] [address] [place] [address] Pastoral Counselor 08/08/22 02/18/23 Samples, Melania Joel RN [address] [place] [address] [address] [place] [address] Assistant Professor Of Biology 08/22/22 12/07/22 Rudolph Welch MD [address] [facility] [address] [place] [address] Consulting Physician Infectious Diseases 12/05/22 Markie Ryan MD [address] [facility] [address] [place] [address] Consulting Physician Nephrology 12/05/22 Nadege Ramírez RN [address] [place] [address] [address] [place] [address] Assistant Professor Of Biology 01/20/23 02/23/23 Dulce Vega RN [address] [place] [address] [address] [place] [address] Assistant Professor Of Biology 10/07/23 05/03/24 [place] [address] [facility] [address] [place] [address] Consulting Physician Nephrology 10/22/23 Jaya Grier MD [address] [facility] [address] [place] [address] Consulting Physician Gastroenterology 02/01/24 Edgardo Kauffman MD [address] [facility] [address] [facility] [address] [place] [address] Surgeon Vascular Surgery 07/15/24 Macrina Mike RN [address] [place] [address] [address] [place] [address] Assistant Professor Of Biology 11/07/24 documented as of this encounter
--- OUTSIDE RECORDS SUMMARY | 2024-11-09 10:03 | XMS_ITS ---
Author Name [facility], Clinic Address [address] [place], [place] [address] Phone [phone] [facility], NA DOCUMENT DISCLAIMER Multiple document versions may exist, please be sure you review the latest version. The information in the [facility] Continuity of Care Document represents a summary of certain health and medical information. It may not contain the complete medical history for the patient and should be independently verified. The represented time in the document is Eastern Time. 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 Active October [...] SOCIAL HISTORY Tobacco Use Status Tobacco Type Unknown if ever consumed tobacco - Caregiver Characteristics No Information Available Characteristics of Home environment No Information Available Gender and Sex Information Gender Identity Sexual [...] 2024 July 28, 2025 Active Mircera Once 200 mcg Subcutaneous October 13, 2024 Discontinued Mircera Once 200 mcg Subcutaneous October 31, 2024 Discontinued Home Medications Medication Instructions Dosage Route Start Date End Date Status 1st Medx-Patch With Lidocaine 4-20-0.025-5% Apply to skin as needed for pain 1 patch TOPICAL November 07, 2024 Active aspirin 81 mg ORAL February 02, 2024 Active atorvastatin 20 mg Take by mouth every night at bedtime 1 tablet ORAL June 13, 2024 Active calcitriol 0.25 mcg Take by mouth three times a week 1 capsule ORAL June 07, 2024 Active carvedilol 3.125 mg Take by mouth twice a day with meals 2 tablet ORAL October 05, 2024 Active Easy Touch 32 gauge x 5/32 Use subcutaneously four times a day 1 needle subcutaneously February 02, 2024 Active Flonase Allergy Relief 50 mcg/actuation [place] into each nostril as directed as needed 2 spray NASAL November 07, 2024 Active gabapentin 100 mg Take by mouth as directed 100 mg ORAL June 07, 2024 Active Humalog KwikPen Insulin 100 unit/mL Inject subcutaneously as directed 4 unit SUBCUTANEOUS November 07, 2024 Active hydralazine 25 mg Take by mouth three times a day 1 tablet ORAL November 07, 2024 Active Lantus Solostar U-100 Insulin 100 unit/mL (3 mL) Inject subcutaneously every night 11 unit SUBCUTANEOUS November 07, 2024 Active pantoprazole 40 mg Take by mouth once a day 1 tablet ORAL November 07, 2024 Active Risperdal 2 mg Take by mouth once a day 1 tablet ORAL July 28, 2024 Active Vitamin D3 125 mcg (5,000 unit) Take by mouth once a day 1 tablet ORAL November 07, 2024 Active benztropine 2 mg Take by mouth every night 1 tablet ORAL November 07, 2024 Discontinued cefdinir 300 mg Take by mouth once a day 1 capsule ORAL November 09, 2024 Discontinued VITAL SIGNS Post-Treatment Vital Signs Vital Sign Value Date / Time Blood Pressure-sitting 192/62 mmHg November 08 07:00 PM Blood Pressure-standing 158/67 mmHg November 08, 2024 07:00 PM Heart Rate 92 beats per minute November 08, 2024 07:00 PM Temperature 98.6 deg. F November 08, 2024 07: 00 PM Weight Vital Sign Value Date / Time Estimated Dry Weight 61 kg August 31 11:59 PM Pre-Dialysis 61.2 kg November 08, 2024 07: 00 PM Post-Dialysis 62.8 kg November 08, 2024 07: 00 PM Other Other Value Date / Time Height 157 cm November 05, 2023 12: 00 AM Body Mass Index 24.75 kg/m2 October 21, 2024 08: 06 PM HEALTH CONCERNS Tuberculosis Testing TST Date Administered TST Date Read TST Result 10/29/2023 No information available No info rmation available LAB RESULTS Hematology Result Type Result Value Relevant Referen ce Range Interpretation Date UIBC/TIBC 136 mcg/dL 155 - 355 mcg/dL Low June 06, 2024 TIBC (Calc) 203 mcg/dL 185 - 515 mcg/dL - [facility] 2023 Neutrophils 71.5 % 40.0 - 75.0 % - May 222023 WBC (No Diff) 8.42 1000/mcL 4.80 - 10.80 1000/mcL - June 06, 2024 Transferrin Sat. (Calc) 33 % 20 - 55 % - June 06 Reticulocyte 4.45 % 0.80 - 2.10 % High June 06, 2024 Platelets 357 1000/mcL 130 - 400 1000/mcL - [facility] 2023 Folate, Serum 7.1 ng/mL No Reference Ran ge Provided - June 06, 2024 Ferritin 613 ng/mL 10 - 291 ng/mL High May 222023 WBC (No Diff) 6.41 1000/mcL 4.80 - 10.80 1000/mcL - June 23, 2024 Neutrophils 65.4 % 40.0 - 75.0 % - June Transferrin Sat. (Calc) 41 % 20 - 55 % - June 23, 2024 Reticulocyte 1.32 % 0.80 - 2.10 % - June TIBC (Calc) 227 mcg/dL 185 - 515 mcg/dL - June 23, 2024 UIBC/TIBC 133 mcg/dL 155 - 355 mcg/dL Low June 23, 2024 Platelets 256 1000/mcL 130 - 400 1000/mcL - 2024 Platelets 236 1000/mcL 130 - 400 1000/mcL - 2024 WBC (No Diff) 6.34 1000/mcL 4.80 - 10.80 1000/mcL - July 19, 2024 Neutrophils 68.0 % 40.0 - 75.0 % - June Ferritin 1284 ng/mL 10 - 291 ng/mL High July Reticulocyte 1.14 % 0.80 - 2.10 % - July 26, 2024 Platelets 252 1000/mcL 130 - 400 1000/mcL - [facility] [id number] Transferrin Sat. (Calc) 61 % 20 - 55 % High July 26 Folate, Serum 5.2 ng/mL No Reference Ran ge Provided - July 26, 2024 TIBC (Calc) 166 mcg/dL 185 - 515 mcg/dL Low Februar 2024 UIBC/TIBC 65 mcg/dL 155 - 355 mcg/dL Low July 26, 2024 WBC (No Diff) 8.10 1000/mcL 4.80 - 10.80 1000/mcL - July 26, 2024 Neutrophils 76.2 % 40.0 - 75.0 % High July UIBC/TIBC 151 mcg/dL 155 - 355 mcg/dL Low August TIBC (Calc) 262 mcg/dL 185 - 515 mcg/dL - August Iron 111 mcg/dL 30 - 160 mcg/dL - August 24, 2024 Transferrin Sat. (Calc) 42 % 20 - 55 % - August 24, 2024 Hemoglobin x 3 28.5 % 36.0 - 48.0 % Low August Platelets 246 1000/mcL 130 - 400 1000/mcL - [facility] 2024 Reticulocyte 1.59 % 0.80 - 2.10 % - August 24, 2024 MCH 31.8 pg 27.0 - 31.0 pg High August 24, 2024 MCHC 30.9 g/dL 30.0 - 36.0 g/dL - August RDW 15.9 % 11.5 - 14.5 % High August 24, 025 Monocytes 5.5 % 3.0 - 10.0 % - August 24 Eosinophil 2.8 % 0.0 - 7.0 % - August 24 Basophils 0.5 % 0.0 - 1.5 % - August 24 CELENA 2.4 % 0.0 - 4.0 % - August 24 WBC (No Diff) 8.81 1000/mcL 4.80 - 10.80 1000/mcL - August 24, 2024 Neutrophils 64.3 % 40.0 - 75.0 % - August 24, 2024 Lymphocytes 24.6 % 19.0 - 48.0 % - August 24, 2024 Iron 62 mcg/dL 30 - 160 mcg/dL - September 21, 2024 Transferrin Sat. (Calc) 26 % 20 - 55 % - September 21, 2024 TIBC (Calc) 235 mcg/dL 185 - 515 mcg/dL - September UIBC/TIBC 173 mcg/dL 155 - 355 mcg/dL - September Lymphocytes 20.9 % 19.0 - 48.0 % - September 21, 2024 Neutrophils 69.9 % 40.0 - 75.0 % - September 21, 2024 Eosinophil 1.9 % 0.0 - 7.0 % - September 21 Monocytes 4.5 % 3.0 - 10.0 % - September 21 RDW 14.3 % 11.5 - 14.5 % - September 21, MCHC 31.4 g/dL 30.0 - 36.0 g/dL - September Ferritin 719 ng/mL 10 - 291 ng/mL High September 21, 2024 MCH 31.2 pg 27.0 - 31.0 pg High September 21, 2024 Basophils 0.6 % 0.0 - 1.5 % - September 21 WBC (No Diff) 8.22 1000/mcL 4.80 - 10.80 1000/mcL - September 21, 2024 CELENA 2.3 % 0.0 - 4.0 % - September 21 5 Platelets 232 1000/mcL 130 - 400 1000/mcL - Apri l 2024 Hemoglobin x 3 27.3 % 36.0 - 48.0 % Low September Reticulocyte 2.39 % 0.80 - 2.10 % High September 21, 2024 Hemoglobin x 3 23.7 % 36.0 - 48.0 % Low September 202024 HGB 8.2 g/dL 12.0 - 16.0 g/dL Low September Hemoglobin x 3 24.6 % 36.0 - 48.0 % Low September 212024 Neutrophils 61.3 % 40.0 - 75.0 % - October 20 25 RBC 2.41 mill/mcL 4.20 - 5.40 mill/mcL Low October 20, 2024 CELENA 2.8 % 0.0 - 4.0 % - October 20, 2024 WBC (No Diff) 7.36 1000/mcL 4.80 - 10.80 1000/mcL - October 20, 2024 Eosinophil 2.4 % 0.0 - 7.0 % - October 20, 2024 Basophils 0.5 % 0.0 - 1.5 % - October 20, 2024 Lymphocytes 28.0 % 19.0 - 48.0 % - October 20 Monocytes 4.9 % 3.0 - 10.0 % - October 20, 2024 MCH 33.2 pg 27.0 - 31.0 pg High October 20 MCHC 32.6 g/dL 30.0 - 36.0 g/dL - October 20, 2024 HCT 24.6 % 37.0 - 47.0 % Low October 20 Reticulocyte 3.32 % 0.80 - 2.10 % High October 20 Hemoglobin x 3 24 % 36.0 - 48.0 % Low October 20, 2024 Platelets 301 1000/mcL 130 - 400 1000/mcL - October 20, 2024 RDW 13.4 % 11.5 - 14.5 % - October 20 HGB 8.0 g/dL 12.0 - 16.0 g/dL Low October 20, 2024 Ferritin 480 ng/mL 10 - 291 ng/mL High October 20 Transferrin Sat. (Calc) 33 % 20 - 55 % - October 20, 2024 TIBC (Calc) 234 mcg/dL 185 - 515 mcg/dL - October 20, 2024 UIBC/TIBC 156 mcg/dL 155 - 355 mcg/dL - October 20, 2024 Iron 78 mcg/dL 30 - 160 mcg/dL - October 20 Metabolic/Renal Result Type Result Value Relevant Referen ce Range Interpretation Date Vitamin B12 523 pg/mL 211 - 911 pg/mL - July 26, 2024 Bicarbonate 26 mEq/L 22 - 29 mEq/L - August 24, 2024 Creatinine, Serum 6.09 mg/dL 0.60 - 1.30 mg/dL High August 24, 2024 BUN/Creat Ratio 11.7 10.0 - 20.0 - August BUN 71 mg/dL 6 - 19 mg/dL High August 24 BUN, Post 31 mg/dL 6 - 19 mg/dL High March 05, 20 25 URR, Calc 56 % 65 - 80 % Low August 24, 2024 Sodium 145 mEq/L 136 - 145 mEq/L - August 24, 2024 Potassium 4.9 mEq/L 3.5 - 5.1 mEq/L - August 24, 2024 Chloride 103 mEq/L 96 - 108 mEq/L - August 24, 2024 URR, Calc 58 % 65 - 80 % Low September 21, 2024 BUN, Post 25 mg/dL 6 - 19 mg/dL High September 21 Bicarbonate 24 mEq/L 22 - 29 mEq/L - September 21, 2024 Chloride 105 mEq/L 96 - 108 mEq/L - September 21, 2024 BUN/Creat Ratio 11.0 10.0 - 20.0 - September Creatinine, Serum 5.34 mg/dL 0.60 - 1.30 mg/dL High September 21, 2024 Potassium 4.4 mEq/L 3.5 - 5.1 mEq/L - September 21, 2024 Sodium 141 mEq/L 136 - 145 mEq/L - September 21, 2024 BUN 59 mg/dL 6 - 19 mg/dL High September 21 25 BUN 65 mg/dL 6 - 19 mg/dL High October 20, 2024 Bicarbonate 27 mEq/L 22 - 29 mEq/L - October 20 25 Chloride 101 mEq/L 96 - 108 mEq/L - October 20 25 Potassium 4.7 mEq/L 3.5 - 5.1 mEq/L - October 20, 025 Sodium 140 mEq/L 136 - 145 mEq/L - October 20, 025 BUN/Creat Ratio 12.1 10.0 - 20.0 - October 20, 2024 Creatinine, Serum 5.38 mg/dL 0.60 - 1.30 mg/dL High October 20, 2024 URR, Calc 60 % 65 - 80 % Low October 26, 2024 BUN, Post 20 mg/dL 6 - 19 mg/dL High October 26, 2024 BUN 50 mg/dL 6 - 19 mg/dL High October 26, 2024 HD Adequacy Result Type Result Value Relevant Referen ce Range Interpretation Date Krt/V 0.00 No Reference Ran ge Provided - May 25, 2024 Simple Kt/V (Home HD Only) 0.82 No Reference Range Provided Normal August 24, 2024 wstdKt/V, residual 0.0 No Reference Range Provided - August 24, 2024 wstdKt/V 2.2 No Reference Ran ge Provided - August 24, 2024 spKt/V Daugirdas II (HHD) 0.93 No Reference Range Provided Normal August 24, 2024 wstdKt/V without residual 2.2 No Reference Range Provided - August 24, 2024 wstdKt/V without residual 2.4 No Reference Range Provided - September 21, 2024 wstdKt/V, residual 0.0 No Reference Range Provided - September 21, 2024 wstdKt/V 2.4 No Reference Ran ge Provided - September 21, 2024 spKt/V Daugirdas II (HHD) 1.11 No Reference Range Provided Normal September 21, 2024 Simple Kt/V (Home HD Only) 0.87 No Reference Range Provided Normal September 21, 2024 wstdKt/V without residual 2.5 No Reference Range Provided - October 26, 2024 spKt/V Daugirdas II (HHD) 0.95 No Reference Range Provided Normal October 26, 2024 wstdKt/V, residual 0.0 No Reference Range Provided - October 26, 2024 Simple Kt/V (Home HD Only) 0.92 No Reference Range Provided Normal October 26, 2024 wstdKt/V 2.5 No Reference Ran ge Provided - October 26, 2024 Bone/Mineral Result Type Result Value Relevant Referen ce Range Interpretation Date Magnesium 1.6 mg/dL 1.6 - 2.6 mg/dL - January Magnesium 1.9 mg/dL 1.6 - 2.6 mg/dL - May 12, 2024 Magnesium 1.8 mg/dL 1.6 - 2.6 mg/dL - June 06, 2024 PTH-Intact, Plasma 148 pg/mL 16 - 80 pg/mL High Dec ember 2023 PTH-Intact, Plasma 182 pg/mL 16 - 80 pg/mL High [place] [facility] 2024 PTH-Intact, Plasma 149 pg/mL 16 - 80 pg/mL High Feb ruary 2024 Magnesium 1.7 mg/dL 1.6 - 2.6 mg/dL - July 26, 2024 Vitamin D 25 Hydroxy 67.1 ng/mL 30.0 - 100.0 ng/mL - July 26, 2024 Corrected Ca x P Product 52 0 - 54 - August 24, 2024 Calcium, Total 10.2 mg/dL 8.4 - 10.2 mg/dL - 2024 Phosphorus 5.1 mg/dL 2.6 - 4.5 mg/dL High August 24, 2024 Ca x P Product 52 0 - 54 - August 24, 2024 PTH-Intact, Plasma 175 pg/mL 16 - 80 pg/mL High Mar ch 2024 Corrected Ca x P Product 37 0 - - September 21, 2024 Ca x P Product 36 0 - 54 - September 21, 2024 Phosphorus 3.9 mg/dL 2.6 - 4.5 mg/dL - September 21, 2024 Calcium, Total 9.3 mg/dL 8.4 - 10.2 mg/dL - Apri l 2024 PTH-Intact, Plasma 175 pg/mL 16 - 80 pg/mL High Sep il 2024 PTH-Intact, Plasma 145 pg/mL 16 - 80 pg/mL High October 20, 2024 Magnesium 2.0 mg/dL 1.6 - 2.6 mg/dL - October 20, 025 Alkaline Phosphatase 113 U/L 35 - 104 U/L High Ma y 2024 Ca x P Product 38 0 - 54 - October 20, 20 25 Phosphorus 4.0 mg/dL 2.6 - 4.5 mg/dL - October 20, 025 Calcium, Total 9.5 mg/dL 8.4 - 10.2 mg/dL - October 20, 2024 Corrected Ca x P Product 39 0 - 54 - October 20, 2024 Liver/Nutrition Result Type Result Value Relevant Reference Range Interpre tat Date Globulin (Calc) 3.6 g/dL 2.0 - 4.0 g/dL - August 24, 2024 A/G Ratio 1.1 1.0 - 2.0 - August 24, 2024 Glucose 160 mg/dL 70 - 100 mg/dL High August 24, 2024 Total Protein 7.7 g/dL 6.0 - 8.5 g/dL - August Albumin (BCG) 4.1 g/dL 3.5 - 5.2 g/dL - August A/G Ratio 1.1 1.0 - 2.0 - September 21, 2024 Globulin (Calc) 3.5 g/dL 2.0 - 4.0 g/dL - September 21, 2024 Albumin (BCG) 3.9 g/dL 3.5 - 5.2 g/dL - September Total Protein 7.4 g/dL 6.0 - 8.5 g/dL - September Glucose 111 mg/dL 70 - 100 mg/dL High September 21, 2024 Glucose 214 mg/dL 70 - 100 mg/dL High October 20 Total Protein 6.9 g/dL 6.0 - 8.5 g/dL - October 20, 2024 A/G Ratio 1.2 1.0 - 2.0 - October 20, 2024 Globulin (Calc) 3.1 g/dL 2.0 - 4.0 g/dL - October Albumin (BCG) 3.8 g/dL 3.5 - 5.2 g/dL - October 20, 2024 Immunochemistry Result Type Result Value Relevant Reference Range Interpre tation Date HCV s/co ratio 0.10 0.00 - 0.79 - June 06, 2024 HCV s/co ratio 0.04 0.00 - 0.79 - July 26, 2024 Trace Elements Result Type Result Value Relevant Reference Range Interpre tation Date Aluminum 8 mcg/L 0 - 10 mcg/L - February 10 024 Aluminum 7 mcg/L 0 - 10 mcg/L - June 06, 2024 Aluminum < 5 mcg/L 0 - 10 mcg/L - July 26, 2024 Aluminum < 5 mcg/L 0 - 10 mcg/L - October 20, 2024 Infectious Diseases Result Type Result Value Relevant Referen ce Range Interpretation Date Hep B Surface Ag (HBsAg) Negative No [...] Intramu scular Completed HEPLISAV-B, Series 2 of 4 December 10, 2023 20.0 mcg Intramu scular [...] Type Dialysate Dialysis Access Meds-entered by patient October 30, 2024 Weight 62.1 kg Weight 60.9 kg 3:27 400 CAR-172 2K 45 La ctate Blood Pressure-sitting 158/54 mmHg Blood Pressure-sitting 10 5/95 mmHg 2 of 14 400 Blood Pressure-standing 156/58 mmHg Blood Pressure-standing 127/49 mmHg 3 of 14 400 Heart Rate 77 beats per minute Heart Rate 85 beats per minute 4 of 14 400 Temperature 97.8 deg. F Temperature 97.7 deg. F 5 of 14 40 0 - - - - 6 of 14 400 - - - - 7 of 14 400 - - - - 8 of 14 400 - - - - 9 of 14 400 - - - - 10 of 14 - - - - - 11 of 14 100 - - - - 12 of 14 - - - - - 13 of 14 101 - - - - 14 of 14 - November 06, 2024 Weight 60.5 kg Blood Pressure-sitting 144/58 mmHg 3:28 1 of 400 CAR-172 2K 45 Lactate Hemodialysis-CV Catheter-Tunneled, Chest, Right Jugular Access Placed on July 15, 2024 Heparin 5000 Via Access Heparin 2100 Via Access Heparin 2000 Via Access Heparin 5000 Access Blood Pressure-sitting 154/66 mmHg Blood Pressure-standing 1 36/61 mmHg 2 of 28 400 Blood Pressure-standing 121/66 mmHg Heart Rate 101 beats per minute 3 of 28 390 Heart Rate 94 beats per minute Temperature 97.8 deg. F 4 of 400 Temperature 97.6 deg. F - - 5 of 342 - - - - 6 of 357 - - - - 7 of 327 - - - - 8 of 276 - - - - 9 of 230 - - - - 10 of 230 - - - - 11 of 28 250 - - - - 12 of 28 250 - - - - 13 of 28 - - - - - 14 of 28 400 - - - - 15 of 28 400 - - - - 16 of 28 400 - - - - 17 of 28 400 - - - - 18 of 28 400 - - - - 19 of 28 400 - - - - 20 of 28 400 - - - - 21 of 28 400 - - - - 22 of 28 400 - - - - 23 of 28 400 - - - - 24 of 28 400 - - - - 25 of 400 - - - - 26 of 392 - - - - 27 of - - - - - 28 of - November 08, 2024 Weight 61.2 kg Weight 62.8 kg 3:27 1 of 15 400 CAR-172 2K 45 Lactate Hemodialysis-CV Catheter-Tunneled, Chest, Right Jugular Access Placed on July 15, 2024 Heparin 2000 Via Access Heparin 5000 Access Heparin 5000 Via Access Heparin 2100 Via Access Blood Pressure-sitting 175/66 mmHg Blood Pressure-sitting 19 2/62 mmHg 2 of 15 400 Blood Pressure-standing 163/70 mmHg Blood Pressure-standing 158/67 mmHg 3 of 15 400 Heart Rate 80 beats per minute Heart Rate 92 beats per minute 4 of 15 400 Temperature 98.5 deg. F Temperature 98.6 deg. F 5 of 15 40 0 - - - - 6 of 15 400 - - - - 7 of 15 400 - - - - 8 of 15 400 - - - - 9 of 15 45 - - - - 10 of 15 100 - - - - 11 of 15 400 - - - - 12 of 15 400 - - - - 13 of 15 400 - - - - 14 of 15 397 - - - - 15 of 15 -
--- NOTE | 2024-11-09 11:09 | ECG_ITS ---
Test Date: 2024-11-09 11:54:01 Measurements Intervals Tea Rate: 67 P: 71 LA: 177 QRS: 9 QRSD: 71 T: 51 QT: 424 QTc: 449 Interpretive Statements SINUS RHYTHM NORMAL ECG Compared to ECG 09/21/2024 16:56:34 No significant changes Electronically Signed On 11-09-2024 13:20:28 CDT by Markie Antoine M.D.
[2024-11-09 11:35] LABS: Basophils Percent Auto 0.3 % (0.2-1.2); Eosinophils Absolute Auto 0.1 K/mm3 (0-0.3); Eosinophils Percent Auto 1.3 % (0-4.4); Hematocrit 27.7 % (37.0-47.0); Immature Granulocyte Absolute 0.05 K/mm3 (0.00-0.031); Immature Granulocyte Percent A 0.5 % (0-0.5); Lymphocytes Absolute Auto 1.96 K/mm3 (0.9-3.2); Lymphocytes Percent Auto 19.7 % (18.3-44.2); Mean Corpuscular HGB Conc 32.5 g/dl (32-36); Mean Corpuscular Hemoglobin 33.2 pg (26-34); Mean Corpuscular Volume 102.2 fl (80-100); Mean Platelet Volume 10.1 fl (7.4-10.4); Monocytes Absolute Auto 0.7 K/mm3 (0.1-0.6); Monocytes Percent Auto 7.4 % (2.6-8.5); Neutrophils Percent Auto 70.8 % (45.5-73.1); Nucleated Red Blood Cells Perc 0.9 % (0.0-0.2); Platelet Count Result 256 k/mm3 (150-375); Red Blood Count 2.71 M/mm3 (4.2-5.4); Red Cell Distribution Width 14.2 % (11.5-14.5); White Blood Count 9.9 K/mm3 (4.5-10.0)
[2024-11-09 11:51] LABS: INR 0.9; Partial Thromboplastin Time 28.3 Seconds (22.3-36.8)
[2024-11-09 13:10] LABS: Alanine Aminotransferase 24 U/L (6-35); Albumin Level 4.1 g/dL (3.5-5.1); Alkaline Phosphatase 130 U/L (38-126); Anion Gap 10 mmol/L (4-12); Aspartate Amino Transferase 30 U/L (14-36); Bilirubin,Total 0.3 mg/dL (0.2-1.3); Blood Urea Nitrogen 33 mg/dL (7-17); Calcium 8.8 mg/dL (8.4-10.2); Carbon Dioxide 28 mmol/L (22-30); Chloride 96 mmol/L (98-107); Estimated CRCL calculation 8 ml/min; Estimated Glomerular Filt Rate 10; Glucose 126 mg/dL (65-110); Potassium 4.3 mmol/L (3.4-5.0); Sodium 134 mmol/L (137-145)
[2024-11-09 14:39] LABS: Add Urine Microscopic? YES; Appearance Urine Clear (Clear); Bacteria Urine None Seen /hpf; Bilirubin Urine Negative (Negative); Blood Urine Negative (Negative); Color Urine Yellow (Yellow); Glucose Urine UA 1+ mg/dL (Negative); Ketones Urine Negative (Negative); Leukocyte Esterase Ur Negative LEU/UL (Negative); Nitrate Urine Negative (Negative); Non Pathogenic Casts 0-2; Protein Urine 2+ mg/dL (Negative); RBC Urine 0-2 /hpf (0-2); Specific Grav Ur 1.004 (1.001-1.035); Squamous Epithelial Cell Urine None Seen /hpf (Few); Urobilinogen Urine 0.2 mg/dL (<2.0); WBC Urine 0-5 /hpf (0-3)
[2024-11-09] MEDS: ACETAMINOPHEN 500 MG TABLET 1000 MG PO (15:22)
[2024-11-09 16:24] LABS: Influenza A QL RT-PCR Negative (Negative); Influenza B QL RT-PCR Negative (Negative); RSV RNA, RT-PCR Negative (Negative); SARS-CoV-2 RNA PCR Negative (Negative)
--- NOTE | 2024-11-09 16:27 | PCCCNOTE ---
Pt brought in to ED d/t falls and weakness. Daughter would like some rehab for the pt. Pt recently had inpt stay at [facility] 11/01 to 11/05 which would qualify for SNF rehab. One complicating factor is pt does home hemodialysis which is done by the daughter 3 times a week. Pt will need a ARF that does hemodialysis like [facility] or set up to do HD at outpt facility and have transportation set up.
--- NOTE | 2024-11-09 17:28 | P.HP_ITS ---
H&P: HPI History of Present Illness Date/Time: 11/09/24 17:28 Chief Complaint: Fall Narrative: 74 y/o F with PMH of diabetes, ESRD on HD (done at home by daughter), Parkinson's, diabetes, HFpEF, dementia, anemia, schizophrenia, and venous lower mess presents here with fall. The patient presents here from home via EMS on 11/09 for further evaluation after a fall. HPI obtained through chart review, the patient, and the patient's daughter as she has a history of dementia. Arrived A&O x3. The daughter reported that she heard a fall downstairs. Patient had fallen in the bathroom. The patient reports a positive head strike and unknown loss of consciousness, patient unsure. Post fall she reports low back pain. Denies neck pain, headache, focal weakness or numbness, chest pain, or shortness of breath. She does report dizziness, however this is chronic for her. She is not currently on anticoagulation. Daughter concerned as the patient has become increasingly weak. She initially attributed this to a UTI as she was recently admitted at an OSH for same. She is worried that she has become deconditioned and will be at risk for further falls, requesting rehab placement. Initial VS at presentation: 98.2? F, HR 69, R 12, 164/73, and 100% on RA. ED workup showed: No leukocytosis, hemoglobin 9.0 (at baseline), normal coags, sodium 134, creatinine 4.15 and GFR 10, glucose 126, UA showed 2+ protein and 1+ glucose otherwise unremarkable. Viral PCR negative. EKG showed sinus rhythm, rate 67. Head CT showed no acute abnormalities. C-spine CT showed no acute osseous abnormality and multilevel degenerative disc disease. CXR showed a small left pleural effusion. Review of Systems Review of Systems: All systems reviewed & are unremarkable except as noted in HPI and below [facility] Past Medical History Medical History Drug-induced Parkinson's disease Heart failure with preserved ejection fraction Insulin dependent diabetes mellitus Chronic kidney disease, stage 4 (severe) Creatinine ranges from 1.9 to 2.20. Venous thrombosis Anemia Hyperkalemia Dementia COVID (06/2021) Schizophrenia Diabetic neuropathy Surgical History Surgical History History of cataract extraction with lens replacement History of section Right great toe amputee Family History Family History Mother Diabetes mellitus Acute myocardial infarction Father Heart attack Cancer Sibling Diabetes mellitus Acute myocardial infarction Social History Social History Social History: The patient lives with her daughter and grand son in [place]. Lifelong nonsmoker. No alcohol or illicit substance abuse. She designates her daughter, Candelaria Gayle, as her surrogate decision maker. Code status: Full code. Smoking status: Never smoker Alcohol intake: never Substance use: never Substance use type: does not use Do You Feel Safe in your Home?: Yes Lack of Transportation: No Lack of Food: Never True Current Housing: I Have Housing Concerned About Future Housing: No Difficulty Paying Gas/Electric Bills: No Difficulty Paying for Meds: No Currently Unemployed: No Education: Master's Degree or Higher Difficulty w/ Childcare or Family Care: No Living arrangements: with family Spiritual care concerns: Yes Meds Home Medications and Allergies Home Medications ?Medication ?Instructions ?Recorded ?Confirmed ?Type acetaminophen 325 mg tablet 650 mg PO Q6H PRN Pain 09/19/21 11/09/24 History ferrous sulfate 325 mg (65 mg 325 mg PO DAILY 09/19/21 11/09/24 History iron) tablet insulin glargine 100 unit/mL (3 11 unit subcut HS 09/19/21 11/09/24 History mL) subcutaneous pen (Lantus Solostar U-100 Insulin) insulin lispro 100 unit/mL 1 - 4 sliding scale dose subcut 09/19/21 11/09/24 History subcutaneous pen USEASDIRECTD lidocaine 5 % topical patch 2 patch topical DAILY PRN Back Pain 09/19/21 11/09/24 History multivitamin 1 tablet PO DAILY 09/19/21 11/09/24 History aspirin 81 mg chewable tablet 81 mg PO DAILY 06/28/24 11/09/24 History benztropine 2 mg tablet 2 mg PO HS 06/28/24 11/09/24 History hydralazine 25 mg tablet 25 mg PO TID 06/28/24 11/09/24 History pantoprazole 40 mg tablet,delayed 40 mg PO DAILY 06/28/24 11/09/24 History release atorvastatin 20 mg tablet 20 mg PO QPM 11/09/24 11/09/24 History carvedilol 6.25 mg tablet 6.25 mg PO Q12H 11/09/24 11/09/24 History cefdinir 300 mg capsule 300 mg PO DAILY uti 11/09/24 11/09/24 History gabapentin 100 mg capsule 100 mg PO .COMPLEX 11/09/24 11/09/24 History meclizine 25 mg tablet 25 mg PO DAILY 11/09/24 11/09/24 History Allergies Allergy/AdvReac Type Severity Reaction Status Date / Time No Known Allergies Allergy Verified 11/09/24 18:43 Vital Signs Vital Signs - 24 hr 11/09/24 09:06 11/09/24 09:17 11/09/24 09:30 Temperature 98.2 F Pulse Rate 69 66 68 Respiratory Rate 12 17 14 Blood Pressure 164/73 H Pulse Oximetry 100 100 98 Oxygen Delivery Room Air 11/09/24 10:11 11/09/24 10:15 11/09/24 10:30 Temperature Pulse Rate 68 65 68 Respiratory Rate 11 L 10 L 16 Blood Pressure Pulse Oximetry 100 Oxygen Delivery 11/09/24 10:45 11/09/24 10:57 11/09/24 11:00 Temperature Pulse Rate 68 69 68 Respiratory Rate 22 H 15 13 Blood Pressure 174/67 H Pulse Oximetry 100 98 99 Oxygen Delivery 11/09/24 11:01 11/09/24 11:15 11/09/24 11:30 Temperature Pulse Rate 69 70 67 Respiratory Rate 13 18 12 Blood Pressure 195/71 H Pulse Oximetry 99 Oxygen Delivery 11/09/24 11:45 11/09/24 12:00 11/09/24 12:02 Temperature Pulse Rate 68 73 68 Respiratory Rate 16 12 14 Blood Pressure 172/61 H Pulse Oximetry Oxygen Delivery 11/09/24 12:15 11/09/24 12:30 11/09/24 12:45 Temperature Pulse Rate 68 70 68 Respiratory Rate 16 14 14 Blood Pressure Pulse Oximetry 98 99 100 Oxygen Delivery 11/09/24 13:00 11/09/24 13:15 11/09/24 13:30 Temperature Pulse Rate 69 67 67 Respiratory Rate 12 14 12 Blood Pressure Pulse Oximetry 100 100 100 Oxygen Delivery 11/09/24 13:45 11/09/24 14:00 11/09/24 14:15 Temperature Pulse Rate 68 70 70 Respiratory Rate 18 13 22 H Blood Pressure Pulse Oximetry 99 Oxygen Delivery 11/09/24 14:19 11/09/24 14:30 Temperature Pulse Rate 70 68 Respiratory Rate 15 16 Blood Pressure 192/70 H Pulse Oximetry 98 98 Oxygen Delivery Exam Const: General: comfortable and no acute distress Other: , female, nontoxic appearance HENMT: Face/Nose/Sinus: Normal nares present Mouth: Yes moist mucous membranes Eyes: General: appearance normal, both eyes and all related structures Sclera: sclerae normal Pupils: Equal, round and reactive pupils present EOM: EOMs intact bilaterally Resp: Effort & Inspection: normal respiratory effort Auscultation: clear to auscultation bilaterally Cardio: Rate: regular rate Rhythm: regular rhythm Other: S1-S2 present without murmur, rub, ectopy GI: Other: Abdomen soft, nondistended, nontender. Normoactive bowel sounds in all quadrant s. Skin: General skin exam: normal color and no rashes or lesions noted Wounds: no wounds Other: Mild diaphoresis Neuro: Speech: normal speech Motor exam (neuro): 5/5 motor strength present throughout Sensory Exam: normal sensation Other: A&O x3 Extrem: General: normal to inspection Psych: Mental Status: mental status grossly normal Affect: normal affect H&P: Results Labs Labs: Short CBC 11/09/24 Range/Units 11:12 WBC 9.9 (4.5-10.0) K/mm3 Hgb 9.0 L (12.0-15.0) g/dL Hct 27.7 L (37.0-47.0) % Plt Count 256 (150-375) k/mm3 [facility] 11/09/24 12:54 Sodium 134 L Potassium 4.3 Chloride 96 L Carbon Dioxide 28 BUN 33 H D Creatinine 4.15 H Glucose 126 H Calcium 8.8 Liver Function 11/09/24 Range/Units 12:54 Total Bilirubin 0.3 (0.2-1.3) mg/dL AST 30 (14-36) U/L ALT 24 (6-35) U/L Alkaline Phosphatase 130 H (38-126) U/L Albumin 4.1 (3.5-5.1) g/dL Urine 11/09/24 Range/Units 14:02 Urine Color Yellow (Yellow) Urine Appearance Clear (Clear) Urine pH 8.0 (5.0-9.0) Ur Specific Dickson 1.004 (1.001-1.035) Urine Protein 2+ H (Negative) mg/dL Urine Glucose (UA) 1+ H (Negative) mg/dL Assessment and Plan Assessment and plan (1) Multiple falls: Code(s): R29.6 - Repeated falls Status: Acute Assessment and Plan: - multiple falls within the last month, daughter concerned for deconditioning and risk for further falls. Requesting rehab placement. - care coordination consulted for acute rehab - PT/OT evaluation for discharge planning - fall precautions - analgesics prn - trauma workup negative. UA unremarkable. EKG unremarkable. No significant lab work abnormalities compared to baseline. 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 status Diabetes mellitus type: type 2 Qualified Code(s): E11.22 - Type 2 diabetes mellitus with diabetic chronic kidney disease; N18.6 - End stage renal disease; Z99.2 - Dependence on renal dialysis Code(s): E11.9 - Type 2 diabetes mellitus without complications Status: Chronic Assessment and Plan: - hypoglycemia protocol - POC blood glucose ACHS - home medication: Continue Lantus, hold home sliding scale - correct regimen ordered - low dose TIDWM and HS, based off BMI - A1C 9.4% in 2021, update (4) Congestive heart failure: Qualifiers: Heart failure chronicity: chronic Heart failure type: diastolic Qualified Code(s): I50.32 - Chronic diastolic (congestive) heart failure Code(s): I50.9 - Heart failure, unspecified Status: Chronic Assessment and Plan: - fluid balance via dialysis - monitor daily weights (5) Hypertension: Qualifiers: Hypertension type: unspecified Qualified Code(s): I10 - Essential (primary) hypertension Code(s): I10 - Essential (primary) hypertension Status: Chronic Assessment and Plan: - chronic - continue home medications: Coreg, hydralazine - monitor Plan Diet: Renal/dialysis GI Prophylaxis: Not currently indicated DVT Prophylaxis: SCDs IV fluids: None Lines/Tubes: Peripheral IV Code Status: Full code Quality VTE Prophylaxis VTE prophylaxis: pharmacologic ordered Hospitalist MIPS Advance Care Plan I have confirmed that the patient's Advanced Care Plan is present, code status is documented, or surrogate decision maker is listed in patient medical record.: Yes Medication Reconciliation I have utilized all available resources to obtain, update and review the patients current medications (includes all prescriptions, OTC, herbals, cannabis, and nutritional supplements).: Yes
[2024-11-09 21:06] LABS: Glucose Point of Care 205 mg/dl (65-105)
--- NOTE | 2024-11-09 21:29 | ADMGEN ---
This patient, Barbara Chakraborty, was admitted to [facility] Surg Room 325-01. Patient/family oriented to hospital policies and general routines including ID bracelet, bed and alarms, visiting hours, pain management, procedures, bathroom and other care routines, personal items, smoking policy, room service/diet, and visiting hours. Information on how to activate the Rapid Response Team has been discussed. Patient/Family are encouraged to report perceived risks to care and to ask questions if they do not understand what they are told or what they should do.
[2024-11-10] VITALS (28 sets, daily range): BP systolic 84–194; BP diastolic 51–100; PULSE 59–75; RESP 12–20; TEMP 36.4–37; O2SAT 96–100
[2024-11-10] MEDS: BENZTROPINE MESYLATE 1 MG TABLET 2 MG PO ×2 (01:10→21:33)
[2024-11-10] MEDS: INSULIN GLARGINE (*BKC) 100 UNITS/ML 11 UNITS SUB-Q ×2 (01:10→21:34)
[2024-11-10] MEDS: carvediloL 6.25 MG TABLET PO ×3 (01:10→21:33)
[2024-11-10 06:15] LABS: Basophils Percent Auto 0.4 % (0.2-1.2); Eosinophils Absolute Auto 0.2 K/mm3 (0-0.3); Eosinophils Percent Auto 1.9 % (0-4.4); Hematocrit 26.7 % (37.0-47.0); Hemoglobin 8.3 g/dL (12.0-15.0); Immature Granulocyte Absolute 0.02 K/mm3 (0.00-0.031); Immature Granulocyte Percent A 0.2 % (0-0.5); Lymphocytes Absolute Auto 2.61 K/mm3 (0.9-3.2); Lymphocytes Percent Auto 31.3 % (18.3-44.2); Mean Corpuscular HGB Conc 31.1 g/dl (32-36); Mean Corpuscular Hemoglobin 32.5 pg (26-34); Mean Corpuscular Volume 104.7 fl (80-100); Mean Platelet Volume 9.8 fl (7.4-10.4); Monocytes Absolute Auto 0.8 K/mm3 (0.1-0.6); Monocytes Percent Auto 9.6 % (2.6-8.5); Neutrophils Absolute Auto 4.7 K/mm3 (1.3-6.7); Neutrophils Percent Auto 56.6 % (45.5-73.1); Platelet Count Result 266 k/mm3 (150-375); Red Blood Count 2.55 M/mm3 (4.2-5.4); Red Cell Distribution Width 14.3 % (11.5-14.5); White Blood Count 8.4 K/mm3 (4.5-10.0)
[2024-11-10 06:35] LABS: Alanine Aminotransferase 22 U/L (6-35); Albumin Level 3.5 g/dL (3.5-5.1); Alkaline Phosphatase 125 U/L (38-126); Anion Gap 9 mmol/L (4-12); Aspartate Amino Transferase 26 U/L (14-36); Bilirubin,Total 0.2 mg/dL (0.2-1.3); Blood Urea Nitrogen 44 mg/dL (7-17); Calcium 8.6 mg/dL (8.4-10.2); Carbon Dioxide 27 mmol/L (22-30); Chloride 101 mmol/L (98-107); Estimated CRCL calculation 6 ml/min; Estimated Glomerular Filt Rate 8; Glucose 152 mg/dL (65-110); Magnesium 1.9 mg/dL (1.6-2.3); Phosphorus 5.7 mg/dL (2.5-4.5); Sodium 137 mmol/L (137-145)
[2024-11-10 07:04] LABS: Hepatitis B Surface Antigen Negative (Negative)
[2024-11-10 07:26] LABS: Hepatitis B Surface Anti Res Positive
--- NOTE | 2024-11-10 07:45 | P.PNIM_ITS ---
Progress Note: A&P Assessment and Plan (1) Multiple falls: Code(s): R29.6 - Repeated falls Status: Acute Assessment and Plan: multiple falls within the last month, daughter concerned for deconditioning and risk for further falls. Requesting rehab placement. Recent fall with head strike no AC. CT head and cervical negative for any acute findings * care coordination consulted for acute rehab * PT/OT evaluation for discharge planning * fall precautions * analgesics prn * Orthostatic ordered (2) End stage renal disease on dialysis: Code(s): N18.6 - End stage renal disease; Z99.2 - Dependence on renal dialysis Status: Acute Assessment and Plan: ESRD on HD * nephrology consulted for inpatient dialysis * trend renal function * trend electrolytes, correct as needed * Avoid Nephrotoxic medications (3) Diabetes: Qualifiers: Chronic kidney disease stage: on chronic dialysis Diabetes mellitus complication detail: with chronic kidney disease Diabetes mellitus complication status: with kidney complications Diabetes mellitus assisted insulin use: unspecified assisted insulin use status Diabetes mellitus type: type 2 Qualified Code(s): E11.22 - Type 2 diabetes mellitus with diabetic chronic kidney disease; N18.6 - End stage renal disease; Z99.2 - Dependence on renal dialysis Code(s): E11.9 - Type 2 diabetes mellitus without complications Status: Chronic Assessment and Plan: * hypoglycemia protocol * POC blood glucose ACHS * home medication: Continue Lantus, hold home sliding scale * correct regimen ordered - low dose TIDWM and HS, based off BMI * A1C (4) Congestive heart failure: Qualifiers: Heart failure chronicity: chronic Heart failure type: diastolic Qualified Code(s): I50.32 - Chronic diastolic (congestive) heart failure Code(s): I50.9 - Heart failure, unspecified Status: Chronic Assessment and Plan: Does appear in exacerbation, Last echo 06/2024 Diastolic dysfunction LVEF 65-70% * fluid balance via dialysis * monitor daily weights (5) Hypertension: Qualifiers: Hypertension type: unspecified Qualified Code(s): I10 - Essential (p rimary) hypertension Code(s): I10 - Essential (primary) hypertension Status: Chronic Assessment and Plan: * continue home medications: Coreg, hydralazine * BP per unit protocol (6) Physical deconditioning: Code(s): R53.81 - Other malaise Status: Acute Assessment and Plan: Patient with multiple falls at home and worsening weakness/ infectious workup negative but was treated for UTI * PT/OT * Continue cefdinir for UTI (7) Diabetic neuropathy: Code(s): E11.40 - Type 2 diabetes mellitus with diabetic neuropathy, unspecified Status: Acute Assessment and Plan: Patient with complaints of worsening BLE weakness and pain * added gabapentin daily 100mg renal dosing * continued her her supplemental dose post HD of 100 mg Plan Code status: Full code per patient DVT prophylaxis: SCD's Stress ulcer prophylaxis: Protonix 40 daily PT/OT notes: PT/OT rehab Disposition: Patient was admitted to the medical unit for further evaluation and treatment of fall without injury and worsening physical deconditioning PT/OT evaluation pending for possible rehab placement and plan for dialysis. Time Spent With Patient Time with patient: 15 - 25 minutes Subjective Date/time seen: 11/10/24 07:45 Interval history: Patient is a 74-year old female admitted for multiple falls at home without injury and ESRD, PT/OT pending for possible rehab placement for deconditioned state. 11/10/2024: Patient seen in dialysis states her lower extremities are tingling and feel very weak. Denies any CP, SOB N/V. Patient did report she gets dizzying with ambulation will check orthostatic. Review of Systems Review of Systems: All systems reviewed & are unremarkable except as noted in HPI and below Exam Const: General: comfortable and no acute distress Other: , female, nontoxic appearance HENMT: Face/Nose/Sinus: Normal nares present Mouth: Yes moist mucous membranes Eyes: General: appearance normal, both eyes and all related structures Neck: Neck: supple and no JVD Resp: Effort & Inspection: normal respiratory effort Auscultation: clear to auscultation bilaterally Cardio: Rate: regular rate Rhythm: regular rhythm Other: S1-S2 present without murmur, rub, ectopy GI: Other: Abdomen soft, nondistended, nontender. Normoactive bowel sounds in all quadrants. Skin: General skin exam: normal color and no rashes or lesions noted Wounds: no wounds Other: Mild diaphoresis Neuro: Cranial nerves: Yes Equal, round and reactive pupils present Speech: normal speech Sensory Exam: normal sensation Other: Unsteady gait Extrem: General: normal to inspection Psych: Mental Status: mental status grossly normal Affect: normal affect Objective Data Vital Signs Vital Signs: Vital Signs - 24 hr 11/09/24 09:06 11/09/24 09:17 11/09/24 09:30 Temperature 98.2 F Pulse Rate 69 66 68 Respiratory Rate 12 17 14 Blood Pressure 164/73 H Pulse Oximetry 100 100 98 Oxygen Delivery Room Air 11/09/24 10:11 11/09/24 10:15 11/09/24 10:30 Temperature Pulse Rate 68 65 68 Respiratory Rate 11 L 10 L 16 Blood Pressure Pulse Oximetry 100 Oxygen Delivery 11/09/24 10:45 11/09/24 10:57 11/09/24 11:00 Temperature Pulse Rate 68 69 68 Respiratory Rate 22 H 15 13 Blood Pressure 174/67 H Pulse Oximetry 100 98 99 Oxygen Delivery 11/09/24 11:01 11/09/24 11:15 11/09/24 11:30 Temperature Pulse Rate 69 70 67 Respiratory Rate 13 18 12 Blood Pressure 195/71 H Pulse Oximetry 99 Oxygen Delivery 11/09/24 11:45 11/09/24 12:00 11/09/24 12:02 Temperature Pulse Rate 68 73 68 Respiratory Rate 16 12 14 Blood Pressure 172/61 H Pulse Oximetry Oxygen Delivery 11/09/24 12:15 11/09/24 12:30 11/09/24 12:45 Temperature Pulse Rate 68 70 68 Respiratory Rate 16 14 14 Blood Pressure Pulse Oximetry 98 99 100 Oxygen Delivery 11/09/24 13:00 11/09/24 13:15 11/09/24 13:30 Temperature Pulse Rate 69 67 67 Respiratory Rate 12 14 12 Blood Pressure Pulse Oximetry 100 100 100 Oxygen Delivery 11/09/24 13:45 11/09/24 14:00 11/09/24 14:15 Temperature Pulse Rate 68 70 70 Respiratory Rate 18 13 22 H Blood Pressure Pulse Oximetry 99 Oxygen Delivery 11/09/24 14:19 11/09/24 14:30 11/09/24 17:43 Temperature Pulse Rate 70 68 71 Respiratory Rate 15 16 18 Blood Pressure 192/70 H 178/63 H Pulse Oximetry 98 98 100 Oxygen Delivery 11/09/24 20:00 11/09/24 21:18 11/10/24 05:57 Temperature 99.3 F 97.9 F Pulse Rate 68 68 63 Respiratory Rate 18 18 16 Blood Pressure 164/60 H 145/55 H Pulse Oximetry 98 98 96 Oxygen Delivery Room Air Intake/Output Intake/Output: Intake & Output 11/07/24 11/08/24 11/09/24 11/10/24 23:59 23:59 23:59 23:59 Intake Total 150 Output Total 250 Balance -250 150 Meds/Results Medications: Active Medications Generic Name Dose Route Start Last Admin Trade Name Freq PRN Reason Stop Dose Admin Acetaminophen 650 mg 11/09/24 16:17 Acetaminophen 325 Mg Tablet PO Q4H PRN Mild Pain (1-3) or Fever Aspirin 81 mg 11/10/24 08:00 Aspirin 81 Mg Chewable Tablet PO DAILY@0800 [facility] Atorvastatin Calcium 20 mg 11/10/24 21:00 Atorvastatin 20 Mg Tablet PO QHS SOL Benztropine Mesylate 2 mg 11/10/24 00:10 11/10/24 01:10 Benztropine Mesylate 1 Mg Tablet PO 2 mg HS SOL Administration Carvedilol 6.25 mg 11/10/24 00:10 11/10/24 01:10 Carvedilol 6.25 Mg Tablet PO 6.25 mg Q12HR SOL Administration Cefdinir 300 mg 11/10/24 09:00 Cefdinir 300 Mg Capsule PO 11/10/24 09:01 ONCE ONE Dextrose 12.5 gm 11/09/24 16:18 Dextrose 50% 25 Gm/50 Ml Syringe IV PUSH PRN PRN Hypoglycemia Protocol Epoetin Lucius-epbx 10,000 units 11/10/24 18:18 Epoetin Lucius-Epbx 10,000 Units/Ml Vial IV PUSH 11/10/24 18:19 ONCE ONE Gabapentin 100 mg 11/12/24 20:30 [facility] Glucagon 1 mg 11/09/24 16:18 Glucagon For Inj 1 Mg Vial IM PRN PRN Hypoglycemia Protocol Glucose 15 gm 11/09/24 16:18 Glucose Oral Gel 15 Gm Of Glucse In 37.5 Gm Tube PO PRN PRN Hypoglycemia Protocol Hydralazine HCl 25 mg 11/10/24 09:00 Hydralazine Hcl 25 Mg Tablet PO TID SOL Dextrose 1,000 mls @ 100 mls/hr 11/09/24 16:18 Dextrose 5% 1,000 Ml IVPB PRN PRN Hypoglycemia Protocol Albumin Human 50 mls @ 999 mls/hr 11/09/24 18:42 Albutein IVPB 12/09/24 18:41 Q10M PRN HYPOTENSION Insulin Aspart 2 - 5 units 11/10/24 08:00 Insulin Aspart (*Bkc) 100 Units/Ml SUB-Q TIDWM SOL Protocol Insulin Aspart 1 - 2 units 11/09/24 21:00 11/10/24 00:54 Insulin Aspart (*Bkc) 100 Units/Ml SUB-Q Not Given HS [facility] Protocol Insulin Glargine 11 units 11/10/24 00:15 11/10/24 01:10 Insulin Glargine (*Bkc) 100 Units/Ml SUB-Q 11 units HS SOL Administration Lidocaine 2 patch 11/09/24 23:52 Lidocaine 5% Patch TOPICAL DAILY PRN Back Pain Meclizine HCl 25 mg 11/10/24 09:00 Meclizine Hcl 25 Mg Tablet PO 11/11/24 09:01 DAILY [facility] Multivitamins Therapeutic 1 tablet 11/10/24 09:00 Multivitamins Therapeutic Tab (*Bkc) PO DAILY [facility] Pantoprazole Sodium 40 mg 11/10/24 09:00 Pantoprazole 40 Mg Tablet PO DAILY [facility] Radiology Results: ITS Impressions Head CT 11/09/24 10:11 IMPRESSION: No acute intracranial findings. Cervical Spine CT 11/09/24 10:22 IMPRESSION: No acute osseous abnormality cervical spine. Multilevel degenerative disc disease. Chest X-Ray 11/09/24 12:12 Impression: 1: Small left pleural effusion. Labs Labs: Laboratory Results - last 24 hr 11/09/24 11/09/24 11/09/24 11:12 12:54 14:02 WBC 9.9 RBC 2.71 L Hgb 9.0 L Hct 27.7 L MCV 102.2 H MCH 33.2 MCHC 32.5 RDW 14.2 Plt Count 256 MPV 10.1 Immature Gran % (Auto) 0.5 Neut % (Auto) 70.8 Lymph % (Auto) 19.7 [place] % (Auto) 7.4 Eos % (Auto) 1.3 Baso % (Auto) 0.3 Lymph # (Auto) 1.96 [place] # (Auto) 0.7 H Eos # (Auto) 0.1 Baso # (Auto) 0.0 Abs Immat Gran (auto) 0.05 H Absolute Neuts (auto) 7.0 H Absolute Nucleated RBC 0.090 H Nucleated RBC % 0.9 H PT 13.0 INR 0.9 APTT 28.3 Sodium 134 L Potassium 4.3 Chloride 96 L Carbon Dioxide 28 Anion Gap 10 BUN 33 H D Creatinine 4.15 H Estim Creat Clear Calc 8 Estimated GFR 10 L Glucose 126 H POC Capillary Glucose Calcium 8.8 Phosphorus Magnesium Total Bilirubin 0.3 AST 30 ALT 24 Alkaline Phosphatase 130 H Total Protein 7.0 Albumin 4.1 Urine Color Yellow Urine Appearance Clear Urine pH 8.0 Ur Specific [place] 1.004 Urine Protein 2+ H Urine Glucose (UA) 1+ H Urine Ketones Negative Ur Blood (Man) Negative Urine Nitrate Negative Urine Bilirubin Negative Urine Urobilinogen 0.2 Leukocyte Esterase Rfl Negative Urine RBC 0-2 Urine WBC 0-5 Ur Squamous Epith Cells None seen Urine Bacteria None seen Urine Casts 0-2 Hep Bs Antigen Hep Bs Antibody Influenza A (RT-PCR) Influenza B (RT-PCR) RSV (RT-PCR) SARS-CoV-2 RNA (RT-PCR) 11/09/24 11/09/24 11/10/24 15:42 20:06 06:02 WBC 8.4 RBC 2.55 L Hgb 8.3 L Hct 26.7 L MCV 104.7 H MCH 32.5 MCHC 31.1 L RDW 14.3 Plt Count 266 MPV 9.8 Immature Gran % (Auto) 0.2 Neut % (Auto) 56.6 Lymph % (Auto) 31.3 [place] % (Auto) 9.6 H Eos % (Auto) 1.9 Baso % (Auto) 0.4 Lymph # (Auto) 2.61 [place] # (Auto) 0.8 H Eos # (Auto) 0.2 Baso # (Auto) 0.0 Abs Immat Gran (auto) 0.02 Absolute Neuts (auto) 4.7 Absolute Nucleated RBC 0.080 H Nucleated RBC % 1.0 H PT INR APTT Sodium 137 Potassium 4.0 Chloride 101 Carbon Dioxide 27 Anion Gap 9 BUN 44 H D Creatinine 5.46 H Estim Creat Clear Calc 6 Estimated GFR 8 L Glucose 152 H POC Capillary Glucose 205 H Calcium 8.6 Phosphorus 5.7 H Magnesium 1.9 Total Bilirubin 0.2 AST 26 ALT 22 Alkaline Phosphatase 125 Total Protein 7.0 Albumin 3.5 Urine Color Urine Appearance Urine pH Ur Specific [place] Urine Protein Urine Glucose (UA) Urine Ketones Ur Blood (Man) Urine Nitrate Urine Bilirubin Urine Urobilinogen Leukocyte Esterase Rfl Urine RBC Urine WBC Ur Squamous Epith Cells Urine Bacteria Urine Casts Hep Bs Antigen Negative Hep Bs Antibody Positive Influenza A (RT-PCR) Negative Influenza B (RT-PCR) Negative RSV (RT-PCR) Negative SARS-CoV-2 RNA (RT-PCR) Negative Quality VTE Prophylaxis VTE prophylaxis: mechanical ordered -Patient's previous records reviewed on admission -ER notes reviewed in detail on admission -discussed all findings and current treatment plan with patient/Family/POA -Consultations reviewed for recommendations -Patient's disposition for safe discharge discussed with nurse case management Dictation performed by [employer] direct speech recognition software, therefore econometrician variants and typographical errors may occur. Hospitalist MIPS Advance Care Plan I have confirmed that the patient's Advanced Care Plan is present, code status is documented, or surrogate decision maker is listed in patient medical record.: Yes Medication Reconciliation I have utilized all available resources to obtain, update and review the patients current medications (includes all prescriptions, OTC, herbals, cannabis, and nutritional supplements).: Yes The patient is not eligible for med reconciliation; the patient is in a emergent medical situation where delaying treatment would jeopardize the patients health.: No
[2024-11-10 08:00] LABS: Glucose Point of Care 202 mg/dl (65-105)
[2024-11-10] MEDS: MECLIZINE HCL 25 MG TABLET PO (08:09)
[2024-11-10] MEDS: PANTOPRAZOLE 40 MG TABLET PO (08:09)
[2024-11-10] MEDS: ASPIRIN 81 MG CHEWABLE TABLET PO (08:09)
[2024-11-10] MEDS: hydrALAZINE HCL 25 MG TABLET PO ×3 (08:09→21:33)
[2024-11-10] MEDS: MULTIVITAMINS THERAPEUTIC TAB (*BKC) 1 TABLET PO (08:10)
[2024-11-10] MEDS: INSULIN ASPART (*BKC) 100 UNITS/ML SUB-Q ×3 (08:10→21:34)
[2024-11-10 09:59] LABS: Hemoglobin A1C 6.5 % (<5.7)
[2024-11-10 11:33] LABS: Glucose Point of Care 210 mg/dl (65-105)
--- NOTE | 2024-11-10 11:55 | P.CONNP_ITS ---
Assessment and Plan Assessment and plan (1) End stage renal disease: Code(s): N18.6 - End stage renal disease Status: Chronic Assessment and Plan: * HD today * continue //Thursday dialysis schedule while hospitalized * eventually transition back to home HD on discharge * follow electrolytes, volume status, and clearance * outpatient dialysis unit = [facility] * primary senior stack engineer = Dr. Markie Ryan (2) Multiple falls: Code(s): R29.6 - Repeated falls Status: Acute Assessment and Plan: * s/p fall on the day of admission * however, per daughter, she has had multiple falls within the last month * no evidence of acute injury or trauma * CT of head and C- spine negative * EKG and UA unremarkable * PT/OT evaluation * fall precautions * pain control * may need rehab on discharge (3) Anemia: Qualifiers: Anemia type: unspecified type Qualified Code(s): D64.9 - Anemia, unspecified Code(s): D64.9 - Anemia, unspecified Status: Chronic Assessment and Plan: * due to ESRD * [place]/Epogen with HD * check iron studies if worsens * follow trend of H/H (4) Physical deconditioning: Code(s): R53.81 - Other malaise Status: Acute Assessment and Plan: * presumed etiology of #2 * due to recent hospitalization (?) * PT/OT evaluation (5) Congestive heart failure: Qualifiers: Heart failure chronicity: chronic Heart failure type: diastolic Q ualified Code(s): I50.32 - Chronic diastolic (congestive) heart failure Code(s): I50.9 - Heart failure, unspecified Status: Chronic Assessment and Plan: * compensated at this time * fluid removal with HD to maintain euvolemia * follow volume status (6) Hypertension: Qualifiers: Hypertension type: unspecified Qualified Code(s): I10 - Essential (primary) hypertension Code(s): I10 - Essential (primary) hypertension Status: Chronic Assessment and Plan: * reasonable control at this time * adjust medications as needed * follow trend of hemodynamics (7) Dementia: Code(s): F03.90 - Unspecified dementia, unspecified severity, without behavioral disturbance, psychotic disturbance, mood disturbance, and anxiety Status: Chronic Assessment and Plan: * known history * continue supportive therapy (8) Insulin dependent diabetes mellitus: Status: Chronic Assessment and Plan: * follow accu-cheks * glycemic control per hospitalist I will continue to follow the patient with you while she remains hospitalized and make further recommendations as deemed necessary. Thank you for allowing me to participate in the care of this patient. L History of Present Illness Reason for Consult Consult date: 11/10/24 Reason for consult: end stage renal disease Chief Complaint Chief complaint: weakness,multiple falls,esrd on home dialysis History of Present Illness Narrative: All the history that I have obtained is from review of the electronic medical record as well as discussion with the Physician/ nurses involved in the patient's care in my previous experience taking care of her in the past as difficult to get a full and complete history from the patient given her underlying dementia. The patient presented to [facility] Emergency Room via EMS yesterday after sustaining a fall. The patient apparently had fall in her bathroom with an associated strike to her head. She is unclear if she had any loss of consciousness prior to or after the fall. According to the patient's daughter, she was downstairs when the fall occurred and heard a thud when the fall occurred and quickly went upstairs to assess the patient. Following the fall, the patient stated that she has low back pain but denied any neck pain, headaches, paresthesias, chest pain, shortness of breath but did admit to some dizziness and lightheadedness although she has these issues/ problems even at baseline. There were no acute injuries otherwise noted following the fall. According to the patient's daughter, she has been increasingly weak since her discharge from an outside hospital about a week ago. Apparently, She was admitted for hypertensive urgency and was also found to have a urinary tract infection but received appropriate treatment for this infection but the daughter feels that she hasl become deconditioned in general and this fall is a manifestation of this issue. She is worried that she is at risk for further falls and think she may need rehab placement. EMS transferred her to the emergency room for further assessment. Workup and evaluation emergency room demonstrated the patient to be hemodynamically stable if not a bit hypertensive and in no acute distress. Routine blood test demonstrated a CBC with no significant leukocytosis, relative anemia with a hemoglobin 9.0, normal coagulation studies, and a chemistry panel that was consistent with her known history of end-stage renal disease without any critical electrolyte abnormalities. Her urinalysis was significant for 2+ protein 1+ glucose but otherwise unremarkable and viral testing for influenza/ RSV/ COVID was negative as well. Her EKG showed normal sinus rhythm without any evidence of ischemic changes and a CT scan of her head showed no acute intracranial abnormalities. Subsequent imaging including a CT of her C-spine showed no acute osseous abnormality but was significant for multilevel degenerative disc disease. Her chest x-ray was only significant for a small left pleural effusion. Given her fall and generalized weakness and a concern that she was at risk for further falls, she was admitted to the hospital for further evaluation and therapy. Renal consultation was requested due to her end-stage renal disease. The patient was transition to home hemodialysis approximately 4 months ago. She had been doing in-center hemodialysis on a Thursday, Thursday, Thursday dialysis schedule at [facility] [place] under the care of Dr. Markie Ryan. She continues to see Dr. Pedraza for management of her end-stage renal disease needs. Hyper leave she does home hemodialysis at least 4 or 5 treatments a week and this seems to maintain stability in her electrolytes, volume status, and provide adequate clearance of uremic toxins. Her daughter is the main provider/support with regard to performing these home hemodialysis treatments. As far as I am aware, her home hemodialysis treatments have been uneventful. Currently, at the time my evaluation, she appears to be in no acute distress And tolerating her dialysis treatment (seen on HD at 11:45AM). [facility] Past Medical History Medical History (Updated 11/10/24 @ 10:51 by Sarahy Constantino APRN) Drug-induced Parkinson's disease Heart failure with preserved ejection fraction Insulin dependent diabetes mellitus Chronic kidney disease, stage 4 (severe) Creatinine ranges from 1.9 to 2.20. Venous thrombosis Anemia Hyperkalemia Dementia COVID (06/2021) Schizophrenia Diabetic neuropathy Surgical History Surgical History History of cataract extraction with lens replacement History of section Right great toe amputee Family History Family History Mother Diabetes mellitus Acute myocardial infarction Father Heart attack Cancer Sibling Diabetes mellitus Acute myocardial infarction Social History Social History Social History: The patient lives with her daughter and grand son in [place]. Lifelong nonsmoker. No alcohol or illicit substance abuse. She designates her daughter, Candelaria Gayle, as her surrogate decision maker. Code status: Full code. Smoking status: Never smoker Alcohol intake: never Substance use: never Substance use type: does not use Do You Feel Safe in your Home?: Yes Lack of Transportation: No Lack of Food: Never True Current Housing: I Have Housing Concerned About Future Housing: No Difficulty Paying Gas/Electric Bills: No Difficulty Paying for Meds: No Currently Unemployed: No Education: Master's Degree or Higher Difficulty w/ Childcare or Family Care: No Living arrangements: with family Spiritual care concerns: Yes Meds Home Medications and Allergies Home Medications ?Medication ?Instructions ?Recorded ?Confirmed ?Type acetaminophen 325 mg tablet 650 mg PO Q6H PRN Pain 09/19/21 11/09/24 History ferrous sulfate 325 mg (65 mg 325 mg PO DAILY 09/19/21 11/09/24 History iron) tablet insulin glargine 100 unit/mL (3 11 unit subcut HS 09/19/21 11/09/24 History mL) subcutaneous pen (Lantus Solostar U-100 Insulin) insulin lispro 100 unit/mL 1 - 4 sliding scale dose subcut 09/19/21 11/09/24 History subcutaneous pen USEASDIRECTD lidocaine 5 % topical patch 2 patch topical DAILY PRN Back Pain 09/19/21 11/09/24 History multivitamin 1 tablet PO DAILY 09/19/21 11/09/24 History aspirin 81 mg chewable tablet 81 mg PO DAILY 06/28/24 11/09/24 History benztropine 2 mg tablet 2 mg PO HS 06/28/24 11/09/24 History hydralazine 25 mg tablet 25 mg PO TID 06/28/24 11/09/24 History pantoprazole 40 mg tablet,delayed 40 mg PO DAILY 06/28/24 11/09/24 History release atorvastatin 20 mg tablet 20 mg PO QPM 11/09/24 11/09/24 History carvedilol 6.25 mg tablet 6.25 mg PO Q12H 11/09/24 11/09/24 History cefdinir 300 mg capsule 300 mg PO DAILY uti 11/09/24 11/09/24 History gabapentin 100 mg capsule 100 mg PO .COMPLEX 11/09/24 11/09/24 History meclizine 25 mg tablet 25 mg PO DAILY 11/09/24 11/09/24 History Allergies Allergy/AdvReac Type Severity Reaction Status Date / Time No Known Allergies Allergy Verified 11/09/24 18:43 Vital Signs Vital Signs Temp Pulse Resp BP Pulse Ox O2 Del Method 11/10/24 11:45 62 140/61 11/10/24 11:30 62 149/62 H 11/10/24 11:15 63 166/67 H 11/10/24 11:00 62 150/63 H 11/10/24 10:45 65 194/72 H 11/10/24 10:32 68 188/73 H 11/10/24 10:22 97.9 F 68 12 166/64 H 100 11/10/24 08:21 65 18 169/82 H 97 11/10/24 08:09 63 11/10/24 08:00 100 Room Air 11/10/24 05:57 97.9 F 63 16 145/55 H 96 11/09/24 21:18 99.3 F 68 18 164/60 H 98 11/09/24 20:00 68 18 98 Room Air 11/09/24 17:43 71 18 178/63 H 100 11/09/24 14:30 68 16 98 11/09/24 14:19 70 15 192/70 H 98 11/09/24 14:15 70 22 H 11/09/24 14:00 70 13 11/09/24 13:45 68 18 99 11/09/24 13:30 67 12 100 11/09/24 13:15 67 14 100 11/09/24 13:00 69 12 100 11/09/24 12:45 68 14 100 Exam 2 Narrative: GENERAL APPEARANCE: elderly female in no acute distress HEENT: normocephalic, atraumatic, normal conjunctiva and sclera, nares patient NECK: no lymphadenopathy, thyromegaly, or JVD MOUTH: normal lips, teeth, and gums CARDIOVASCULAR: RRR, normal S1 and S2, no rub RESPIRATORY: clear to auscultation ABDOMEN: soft, nontender, nondistended, positive bowel sounds present EXTREMITIES: no evidence of cyanosis, clubbing, or edema NEUROLOGICAL: alert and oriented x 2 - 3; no focal deficits noted; generalized weakness noted Results Lab Results 11/10/24 06:02 11/10/24 06:02 Lab results: Most recent lab results Calcium 8.6 mg/dL (8.4-10.2) 11/10/24 06:02 Phosphorus 5.7 mg/dL (2.5-4.5) H 11/10/24 06:02 Magnesium 1.9 mg/dL (1.6-2.3) 11/10/24 06:02
[2024-11-10] MEDS: EPOETIN ALFA-EPBX 10,000 UNITS/ML VIAL 10000 UNITS IV PUSH (12:14)
--- NOTE | 2024-11-10 12:46 | PCPTNOTE ---
attempted PT evaluation 1240- pt unavailable, was out of room to dialysis.
[2024-11-10] MEDS: HEPARIN SODIUM 1,000 UNITS/ML VIAL 6000 UNITS IV PUSH (14:34)
[2024-11-10] MEDS: CEFDINIR 300 MG CAPSULE PO (14:52)
[2024-11-10 16:22] LABS: Glucose Point of Care 171 mg/dl (65-105)
[2024-11-10] MEDS: ATORVASTATIN 20 MG TABLET PO (21:33)
[2024-11-10 21:39] LABS: Glucose Point of Care 223 mg/dl (65-105)
[2024-11-11 05:00] VITALS: BP 182/70; PULSE 76; RESP 20; TEMP 36.2; O2SAT 99
[2024-11-11 07:56] LABS: Glucose Point of Care 141 mg/dl (65-105)
[2024-11-11 08:17] LABS: Hematocrit 27.8 % (37.0-47.0); Hemoglobin 8.7 g/dL (12.0-15.0); Mean Corpuscular HGB Conc 31.3 g/dl (32-36); Mean Corpuscular Hemoglobin 33.5 pg (26-34); Mean Corpuscular Volume 106.9 fl (80-100); Mean Platelet Volume 9.5 fl (7.4-10.4); Platelet Count Result 264 k/mm3 (150-375); Red Cell Distribution Width 15.3 % (11.5-14.5); White Blood Count 9.8 K/mm3 (4.5-10.0)
[2024-11-11 08:53] LABS: Alanine Aminotransferase 23 U/L (6-35); Albumin Level 3.7 g/dL (3.5-5.1); Alkaline Phosphatase 113 U/L (38-126); Anion Gap 10 mmol/L (4-12); Aspartate Amino Transferase 24 U/L (14-36); Bilirubin,Total 0.3 mg/dL (0.2-1.3); Blood Urea Nitrogen 30 mg/dL (7-17); Calcium 8.6 mg/dL (8.4-10.2); Carbon Dioxide 25 mmol/L (22-30); Chloride 105 mmol/L (98-107); Estimated CRCL calculation 9 ml/min; Estimated Glomerular Filt Rate 11; Glucose 135 mg/dL (65-110); Magnesium 1.8 mg/dL (1.6-2.3); Potassium 4.1 mmol/L (3.4-5.0); Sodium 140 mmol/L (137-145)
[2024-11-11] MEDS: ASPIRIN 81 MG CHEWABLE TABLET PO (10:00)
[2024-11-11] MEDS: MULTIVITAMINS THERAPEUTIC TAB (*BKC) 1 TABLET PO (10:00)
[2024-11-11] MEDS: PANTOPRAZOLE 40 MG TABLET PO (10:00)
[2024-11-11] MEDS: MECLIZINE HCL 25 MG TABLET PO (10:00)
[2024-11-11 10:02] VITALS: PULSE 76
[2024-11-11] MEDS: carvediloL 6.25 MG TABLET PO ×2 (10:02→20:17)
[2024-11-11] MEDS: hydrALAZINE HCL 25 MG TABLET PO ×3 (10:02→19:23)
[2024-11-11] MEDS: GABAPENTIN 100 MG CAPSULE PO (10:03)
[2024-11-11 11:29] LABS: Glucose Point of Care 182 mg/dl (65-105)
--- NOTE | 2024-11-11 11:38 | P.PNIM_ITS ---
Progress Note: A&P Assessment and Plan (1) Multiple falls: Code(s): R29.6 - Repeated falls Status: Acute Assessment and Plan: multiple falls within the last month, daughter concerned for deconditioning and risk for further falls. Requesting rehab placement. Recent fall with head strike no AC. CT head and cervical negative for any acute findings * care coordination consulted for acute rehab * PT/OT evaluation for discharge planning * fall precautions * analgesics prn * Orthostatic's negative (2) End stage renal disease on dialysis: Code(s): N18.6 - End stage renal disease; Z99.2 - Dependence on renal dialysis Status: Acute Assessment and Plan: ESRD on HD * nephrology consulted for inpatient dialysis * trend renal function * trend electrolytes, correct as needed * Avoid Nephrotoxic medications (3) Diabetes: Qualifiers: Diabetes mellitus type: type 2 Diabetes mellitus intermediate designer insulin use: unspecified intermediate insulin use status Diabetes mellitus complication status: with kidney complications Diabetes mellitus complication detail: with chronic kidney disease Chronic kidney disease stage: on chronic dialysis Qualified Code(s): E11.22 - Type 2 diabetes mellitus with diabetic chronic kidney disease; N18.6 - End stage renal disease; Z99.2 - Dependence on renal dialysis Code(s): E11.9 - Type 2 diabetes mellitus without complications Status: Chronic Assessment and Plan: * hypoglycemia protocol * POC blood glucose ACHS * home medication: Continue Lantus, hold home sliding scale * correct regimen ordered - low dose TIDWM and HS, based off BMI * A1C (4) Congestive heart failure: Qualifiers: Heart failure type: diastolic Heart failure chronicity: chronic Qualified Code(s): I50.32 - Chronic diastolic (congestive) heart failure Code(s): I50.9 - Heart failure, unspecified Status: Chronic Assessment and Plan: Does appear in exacerbation, Last echo 06/2024 Diastolic dysfunction LVEF 65-70% * fluid balance via dialysis * monitor daily weights (5) Hypertension: Qualifiers: Hypertension type: unspecified Qualified Code(s): I10 - Essential (primary) hypertension Code(s): I10 - Essential (primary) hypertension Status: Chronic Assessment and Plan: * continue home medications: Coreg, hydralazine * BP per unit protocol (6) Physical deconditioning: Code(s): R53.81 - Other malaise Status: Acute Assessment and Plan: Patient with multiple falls at home and worsening weakness/ infectious workup negative but was treated for UTI * PT/OT * Continue cefdinir for UTI (7) Diabetic neuropathy: Code(s): E11.40 - Type 2 diabetes mellitus with diabetic neuropathy, unspecified Status: Acute Assessment and Plan: Patient with complaints of worsening BLE weakness and pain * added gabapentin daily 100mg renal dosing * continued her her supplemental dose post HD of 100 mg Plan Code status: Full code per patient DVT prophylaxis: SCD's Stress ulcer prophylaxis: Protonix 40 daily PT/OT notes: PT/OT rehab Disposition: Patient was admitted to the medical unit for further evaluation and treatment of fall without injury and worsening physical deconditioning PT/OT evaluation plan for discharge to Rehab Time Spent With Patient Time with patient: 15 - 25 minutes Subjective Date/time seen: 11/11/24 11:38 Interval history: Patient is a 74-year old female admitted for multiple falls at home without injury and ESRD, PT/OT pending for possible rehab placement for deconditioned state. 11/11/2024: Patient with no complaints tolerating all oral intake. Patient denies CP, sOB, N/V. Patient still reports she feels weak but is working with PT/OT. Labs and vitals reviewed Review of Systems Review of Systems: All systems reviewed & are unremarkable except as noted in HPI and below Exam Const: General: comfortable and no acute distress Other: , female, nontoxic appearance HENMT: Face/Nose/Sinus: Normal nares present Mouth: Yes moist mucous membranes Eyes: General: appearance normal, both eyes and all related structures Sclera: sclerae normal Pupils: Equal, round and reactive pupils present EOM: EOMs intact bilaterally Neck: Neck: supple and no JVD Resp: Effort & Inspection: normal respiratory effort Auscultation: clear to auscultation bilaterally Cardio: Rate: regular rate Rhythm: regular rhythm Other: S1-S2 present without murmur, rub, ectopy GI: Other: Abdomen soft, nondistended, nontender. Normoactive bowel sounds in all quadrants. Skin: General skin exam: normal color and no rashes or lesions noted Wounds: no wounds Other: Mild diaphoresis Neuro: Cranial nerves: Yes Equal, round and reactive pupils present Speech: normal speech Motor exam (neuro): 5/5 motor strength present throughout Sensory Exam: normal sensation Other: Unsteady gait Extrem: General: normal to inspection Psych: Mental Status: mental status grossly normal Affect: normal affect Objective Data Vital Signs Vital Signs: Vital Signs - 24 hr 11/10/24 11:45 11/10/24 12:00 11/10/24 12:04 Temperature Pulse Rate 62 63 Respiratory Rate Blood Pressure 140/61 141/62 H Pulse Oximetry Oxygen Delivery Room Air 11/10/24 12:15 11/10/24 12:30 11/10/24 12:45 Temperature Pulse Rate 62 60 69 Respiratory Rate Blood Pressure 150/64 H 166/66 H 138/52 L Pulse Oximetry Oxygen Delivery 11/10/24 13:00 11/10/24 13:10 11/10/24 13:15 Temperature Pulse Rate 62 59 L 63 Respiratory Rate Blood Pressure 84/55 L 93/67 L 103/52 L Pulse Oximetry Oxygen Delivery 11/10/24 13:30 11/10/24 13:45 11/10/24 14:00 Temperature Pulse Rate 63 64 63 Respiratory Rate Blood Pressure 148/59 H 122/51 L 114/56 L Pulse Oximetry Oxygen Delivery 11/10/24 14:00 11/10/24 14:08 11/10/24 14:15 Temperature 98.4 F 97.5 F L Pulse Rate 61 60 61 Respiratory Rate 14 16 Blood Pressure 144/51 H 126/64 133/63 Pulse Oximetry 100 100 Oxygen Delivery 11/10/24 16:55 11/10/24 17:00 11/10/24 17:05 Temperature Pulse Rate 66 63 68 Respiratory Rate Blood Pressure 168/58 H 182/58 H 131/100 H Pulse Oximetry Oxygen Delivery 11/10/24 20:00 11/10/24 21:33 11/10/24 22:00 Temperature 97.8 F Pulse Rate 68 75 Respiratory Rate 20 Blood Pressure 179/67 H Pulse Oximetry 99 Oxygen Delivery Room Air 11/11/24 05:00 11/11/24 09:54 11/11/24 10:02 Temperature 97.1 F L Pulse Rate 76 76 Respiratory Rate 20 Blood Pressure 182/70 H Pulse Oximetry 99 Oxygen Delivery Room Air Intake/Output Intake/Output: Intake & Output 11/08/24 11/09/24 11/10/24 11/11/24 23:59 23:59 23:59 23:59 Intake Total 1226 800 Output Total 250 1200 400 Balance -250 26 400 Meds/Results Medications: Active Medications Generic Name Dose Route Start Last Admin Trade Name Freq PRN Reason Stop Dose Admin Acetaminophen 650 mg 11/09/24 16:17 Acetaminophen 325 Mg Tablet PO Q4H PRN Mild Pain (1-3) or Fever Aspirin 81 mg 11/10/24 08:00 11/11/24 10:00 Aspirin 81 Mg Chewable Tablet PO 81 mg DAILY@0800 SOL Administration Atorvastatin Calcium 20 mg 11/10/24 21:00 11/10/24 21:33 Atorvastatin 20 Mg Tablet PO 20 mg QHS SOL Administration Benztropine Mesylate 2 mg 11/10/24 00:10 11/10/24 21:33 Benztropine Mesylate 1 Mg Tablet PO 2 mg HS SOL Administration Carvedilol 6.25 mg 11/10/24 00:10 11/11/24 10:02 Carvedilol 6.25 Mg Tablet PO 6.25 mg Q12HR SOL Administration Dextrose 12.5 gm 11/09/24 16:18 Dextrose 50% 25 Gm/50 Ml Syringe IV PUSH PRN PRN Hypoglycemia Protocol Gabapentin 100 mg 11/12/24 20:30 Gabapentin 100 Mg Capsule PO TuThSa SOL Gabapentin 100 mg 11/11/24 09:00 11/11/24 10:03 Gabapentin 100 Mg Capsule PO 100 mg DAILY SOL Administration Glucagon 1 mg 11/09/24 16:18 Glucagon For Inj 1 Mg Vial IM PRN PRN Hypoglycemia Protocol Glucose 15 gm 11/09/24 16:18 Glucose Oral Gel 15 Gm Of Glucse In 37.5 Gm Tube PO PRN PRN Hypoglycemia Protocol Hydralazine HCl 25 mg 11/10/24 09:00 11/11/24 10:02 Hydralazine Hcl 25 Mg Tablet PO 25 mg TID SOL Administration Dextrose 1,000 mls @ 100 mls/hr 11/09/24 16:18 Dextrose 5% 1,000 Ml IVPB PRN PRN Hypoglycemia Protocol Albumin Human 50 mls @ 999 mls/hr 11/09/24 18:42 Albutein IVPB 12/09/24 18:41 Q10M PRN HYPOTENSION Insulin Aspart 2 - 5 units 11/10/24 08:00 11/11/24 08:02 Insulin Aspart (*Bkc) 100 Units/Ml SUB-Q Not Given TIDWM [facility] Protocol Insulin Aspart 1 - 2 units 11/09/24 21:00 11/10/24 21:34 Insulin Aspart (*Bkc) 100 Units/Ml SUB-Q 1 units HS SOL Administration Protocol Insulin Glargine 11 units 11/10/24 00:15 11/10/24 21:34 Insulin Glargine (*Bkc) 100 Units/Ml SUB-Q 11 units HS SOL Administration Lidocaine 2 patch 11/09/24 23:52 Lidocaine 5% Patch TOPICAL DAILY PRN Back Pain Multivitamins Therapeutic 1 tablet 11/10/24 09:00 11/11/24 10:00 Multivitamins Therapeutic Tab (*Bkc) PO 1 tablet DAILY SOL Administration Pantoprazole Sodium 40 mg 11/10/24 09:00 11/11/24 10:00 Pantoprazole 40 Mg Tablet PO 40 mg DAILY SOL Administration Radiology Results: ITS Impressions Head CT 11/09/24 10:11 IMPRESSION: No acute intracranial findings. Cervical Spine CT 11/09/24 10:22 IMPRESSION: No acute osseous abnormality cervical spine. Multilevel degenerative disc disease. Chest X-Ray 11/09/24 12:12 Impression: 1: Small left pleural effusion. Labs Labs: Laboratory Results - last 24 hr 11/10/24 11/10/24 11/11/24 16:19 20:50 07:54 WBC RBC Hgb Hct MCV MCH MCHC RDW Plt Count MPV Sodium Potassium Chloride Carbon Dioxide Anion Gap BUN Creatinine Estim Creat Clear Calc Estimated GFR Glucose POC Capillary Glucose 171 H 223 H 141 H Calcium Magnesium Total Bilirubin AST ALT Alkaline Phosphatase Total Protein Albumin 11/11/24 11/11/24 08:09 11:26 WBC 9.8 RBC 2.60 L Hgb 8.7 L Hct 27.8 L MCV 106.9 H MCH 33.5 MCHC 31.3 L RDW 15.3 H Plt Count 264 MPV 9.5 Sodium 140 Potassium 4.1 Chloride 105 Carbon Dioxide 25 Anion Gap 10 BUN 30 H D Creatinine 4.07 H Estim Creat Clear Calc 9 Estimated GFR 11 L Glucose 135 H POC Capillary Glucose 182 H Calcium 8.6 Magnesium 1.8 Total Bilirubin 0.3 AST 24 ALT 23 Alkaline Phosphatase 113 Total Protein 7.0 Albumin 3.7 Quality VTE Prophylaxis VTE prophylaxis: mechanical ordered -Patient's previous records reviewed on admission -ER notes reviewed in detail on admission -discussed all findings and current treatment plan with patient/Family/POA -Consultations reviewed for recommendations -Patient's disposition for safe discharge discussed with immigration case manager Dictation performed by [employer] direct speech recognition software, therefore jinrikisha driver variants and typographical errors may occur. Hospitalist MIPS Advance Care Plan I have confirmed that the patient's Advanced Care Plan is present, code status is documented, or surrogate decision maker is listed in patient medical record.: Yes Medication Reconciliation I have utilized all available resources to obtain, update and review the patients current medications (includes all prescriptions, OTC, herbals, cannabis, and nutritional supplements).: Yes The patient is not eligible for med reconciliation; the patient is in a emergent medical situation where delaying treatment would jeopardize the patients health.: No
--- NOTE | 2024-11-11 11:58 | P.PNNP_ITS ---
Progress Note: A&P Assessment and Plan (1) End stage renal disease: Code(s): N18.6 - End stage renal disease Status: Chronic Assessment and Plan: * HD tomorrow * continue //Thursday dialysis schedule while hospitalized * eventually transition back to home HD on discharge * follow electrolytes, volume status, and clearance * outpatient dialysis unit = [facility] * primary geology scientist = Dr. Markie Ryan (2) Multiple falls: Code(s): R29.6 - Repeated falls Status: Acute Assessment and Plan: * s/p fall on the day of admission * however, per daughter, she has had multiple falls within the last month * no evidence of acute injury or trauma * CT of head and C-spine negative * EKG and UA unremarkable * PT/OT working with patient * fall precautions * pain control * may need rehab on discharge (3) Anemia: Qualifiers: Anemia type: unspecified type Qualified Code(s): D64.9 - Anemia, unspecified Code(s): D64.9 - Anemia, unspecified Status: Chronic Assessment and Plan: * due to ESRD * [facility] with HD * check anemia studies * follow trend of H/H (4) Physical deconditioning: Code(s): R53.81 - Other malaise Status: Acute Assessment and Plan: * presumed etiology of #2 * due to recent hospitalization (?) * PT/OT following (5) Congestive heart failure: Qualifiers: Heart failure type: diastolic Heart failure chronicity: chronic Q ualified Code(s): I50.32 - Chronic diastolic (congestive) heart failure Code(s): I50.9 - Heart failure, unspecified Status: Chronic Assessment and Plan: * compensated at this time * fluid removal with HD to maintain euvolemia * follow volume status (6) Hypertension: Qualifiers: Hypertension type: unspecified Qualified Code(s): I10 - Essential (primary) hypertension Code(s): I10 - Essential (primary) hypertension Status: Chronic Assessment and Plan: * reasonable control at this time * adjust medications as needed * follow trend of hemodynamics (7) Dementia: Code(s): F03.90 - Unspecified dementia, unspecified severity, without behavioral disturbance, psychotic disturbance, mood disturbance, and anxiety Status: Chronic Assessment and Plan: * known history * continue supportive therapy (8) Insulin dependent diabetes mellitus: Status: Chronic Assessment and Plan: * follow accu-cheks * glycemic control per hospitalist Will continue to follow. L Subjective Date/time seen: 11/11/24 11:58 Interval history: Follow-up for end stage renal disease on hemodialysis. Tolerated dialysis treatment yesterday without any issue or problems; no apparent distress noted at the time of my visit; other generalized weakness, she has no other specific complaints voiced; no events overnight or earlier this morning. Exam 2 Narrative: General: elderly female in NAD Heart: normal S1 and S2; no rub Lungs: clear to auscultation Abdomen: soft, nontender, nondistended, positive bowel sounds Extremities: no cyanosis or clubbing; no edema Skin: warm and dry Objective Data Vital Signs Vital Signs: Vital Signs Temp Pulse Resp BP Pulse Ox O2 Del Method 11/11/24 11:50 97.7 F 65 16 169/65 H 100 11/11/24 10:22 Room Air 11/11/24 10:02 76 11/11/24 09:54 Room Air 11/11/24 05:00 97.1 F L 76 20 182/70 H 99 11/10/24 22:00 97.8 F 75 20 179/67 H 99 11/10/24 21:33 68 11/10/24 20:00 Room Air Intake/Output Intake/Output: Intake & Output 11/08/24 11/09/24 11/10/24 11/11/24 23:59 23:59 23:59 23:59 Intake Total 1226 1040 Output Total 250 1200 400 Balance -250 26 640 Meds/Results Medications: Active Medications Generic Name Dose Route Start Last Admin Trade Name Freq PRN Reason Stop Dose Admin Acetaminophen 650 mg 11/09/24 16:17 Acetaminophen 325 Mg Tablet PO Q4H PRN Mild Pain (1-3) or Fever Aspirin 81 mg 11/10/24 08:00 11/11/24 10:00 Aspirin 81 Mg Chewable Tablet PO 81 mg DAILY@0800 SOL Administration Atorvastatin Calcium 20 mg 11/10/24 21:00 11/10/24 21:33 Atorvastatin 20 Mg Tablet PO 20 mg QHS SOL Administration Benztropine Mesylate 2 mg 11/10/24 00:10 11/10/24 21:33 Benztropine Mesylate 1 Mg Tablet PO 2 mg HS SOL Administration Carvedilol 6.25 mg 11/10/24 00:10 11/11/24 10:02 Carvedilol 6.25 Mg Tablet PO 6.25 mg Q12HR SOL Administration Dextrose 12.5 gm 11/09/24 16:18 Dextrose 50% 25 Gm/50 Ml Syringe IV PUSH PRN PRN Hypoglycemia Protocol Gabapentin 100 mg 11/12/24 20:30 Gabapentin 100 Mg Capsule PO TuThSa SOL Gabapentin 100 mg 11/11/24 09:00 11/11/24 10:03 Gabapentin 100 Mg Capsule PO 100 mg DAILY SOL Administration Glucagon 1 mg 11/09/24 16:18 Glucagon For Inj 1 Mg Vial IM PRN PRN Hypoglycemia Protocol Glucose 15 gm 11/09/24 16:18 Glucose Oral Gel 15 Gm Of Glucse In 37.5 Gm Tube PO PRN PRN Hypoglycemia Protocol Hydralazine HCl 25 mg 11/10/24 09:00 11/11/24 14:41 Hydralazine Hcl 25 Mg Tablet PO 25 mg TID SOL Administration Dextrose 1,000 mls @ 100 mls/hr 11/09/24 16:18 Dextrose 5% 1,000 Ml IVPB PRN PRN Hypoglycemia Protocol Albumin Human 50 mls @ 999 mls/hr 11/09/24 18:42 Albutein IVPB 12/09/24 18:41 Q10M PRN HYPOTENSION Insulin Aspart 2 - 5 units 11/10/24 08:00 11/11/24 16:54 Insulin Aspart (*Bkc) 100 Units/Ml SUB-Q 2 units TIDWM SOL Administration Protocol Insulin Aspart 1 - 2 units 11/09/24 21:00 11/10/24 21:34 Insulin Aspart (*Bkc) 100 Units/Ml SUB-Q 1 units HS SOL Administration Protocol Insulin Glargine 11 units 11/10/24 00:15 11/10/24 21:34 Insulin Glargine (*Bkc) 100 Units/Ml SUB-Q 11 units HS SOL Administration Lidocaine 2 patch 11/09/24 23:52 Lidocaine 5% Patch TOPICAL DAILY PRN Back Pain Multivitamins Therapeutic 1 tablet 11/10/24 09:00 11/11/24 10:00 Multivitamins Therapeutic Tab (*Bkc) PO 1 tablet DAILY SOL Administration Pantoprazole Sodium 40 mg 11/10/24 09:00 11/11/24 10:00 Pantoprazole 40 Mg Tablet PO 40 mg DAILY SOL Administration Radiology Results: ITS Impressions Head CT 11/09/24 10:11 IMPRESSION: No acute intracranial findings. Cervical Spine CT 11/09/24 10:22 IMPRESSION: No acute osseous abnormality cervical spine. Multilevel degenerative disc disease. Chest X-Ray 11/09/24 12:12 Impression: 1: Small left pleural effusion. Labs Labs: Laboratory Tests 11/11/24 08:09 11/11/24 08:09 Calcium 8.6 Magnesium 1.8 Total Bilirubin 0.3 AST 24 ALT 23 Alkaline Phosphatase 113 Total Protein 7.0 Albumin 3.7
--- NOTE | 2024-11-11 12:27 | PC.NURSE ---
this RN attempted to call patient's daughter, Dafne Gayle, to give an update at 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 listed in chart; did not leave a voice message as the name on the voicemail box did not match the name listed.
[2024-11-11 12:32] LABS: MRSA (PCR) NOT DETECTED (NOT DETECTE)
[2024-11-11 14:00] VITALS: BP 169/65; PULSE 65; RESP 16; TEMP 36.5; O2SAT 100
[2024-11-11 16:36] LABS: Glucose Point of Care 220 mg/dl (65-105)
[2024-11-11] MEDS: INSULIN ASPART (*BKC) 100 UNITS/ML SUB-Q (16:54)
[2024-11-11] MEDS: LOPERAMIDE HCL 2 MG CAPSULE PO (19:23)
[2024-11-11 20:04] LABS: Glucose Point of Care 179 mg/dl (65-105)
[2024-11-11 20:17] VITALS: PULSE 73
[2024-11-11] MEDS: ACETAMINOPHEN 325 MG TABLET 650 MG PO (20:18)
[2024-11-11] MEDS: BENZTROPINE MESYLATE 1 MG TABLET 2 MG PO (20:19)
[2024-11-11] MEDS: ATORVASTATIN 20 MG TABLET PO (20:19)
[2024-11-11 21:00] VITALS: O2SAT 100
[2024-11-11 21:05] VITALS: BP 141/71; PULSE 72; RESP 16; TEMP 36.2; O2SAT 100
[2024-11-12] VITALS (21 sets, daily range): BP systolic 81–176; BP diastolic 40–85; PULSE 60–83; RESP 16–20; TEMP 35.9–37.1; O2SAT 98–100
[2024-11-12 03:30] LABS: Iron 56 ug/dL (37-170)
[2024-11-12 03:39] LABS: Percent Iron Saturation 26 % (20-50)
[2024-11-12 05:53] LABS: Hematocrit 27.3 % (37.0-47.0); Hemoglobin 8.4 g/dL (12.0-15.0); Mean Corpuscular HGB Conc 30.8 g/dl (32-36); Mean Corpuscular Hemoglobin 33.5 pg (26-34); Mean Corpuscular Volume 108.8 fl (80-100); Mean Platelet Volume 9.9 fl (7.4-10.4); Platelet Count Result 254 k/mm3 (150-375); Red Blood Count 2.51 M/mm3 (4.2-5.4); Red Cell Distribution Width 15.4 % (11.5-14.5); White Blood Count 10.3 K/mm3 (4.5-10.0)
[2024-11-12 06:05] LABS: Alanine Aminotransferase 19 U/L (6-35); Albumin Level 3.6 g/dL (3.5-5.1); Alkaline Phosphatase 117 U/L (38-126); Anion Gap 13 mmol/L (4-12); Aspartate Amino Transferase 22 U/L (14-36); Bilirubin,Total 0.2 mg/dL (0.2-1.3); Blood Urea Nitrogen 43 mg/dL (7-17); Calcium 8.7 mg/dL (8.4-10.2); Carbon Dioxide 20 mmol/L (22-30); Chloride 105 mmol/L (98-107); Estimated CRCL calculation 7 ml/min; Estimated Glomerular Filt Rate 8; Glucose 144 mg/dL (65-110); Magnesium 1.7 mg/dL (1.6-2.3); Phosphorus 4.4 mg/dL (2.5-4.5); Sodium 138 mmol/L (137-145)
[2024-11-12 07:10] LABS: Folic Acid 8.3 ng/mL (2.76->20)
[2024-11-12 07:36] LABS: Glucose Point of Care 148 mg/dl (65-105)
[2024-11-12] MEDS: EPOETIN ALFA-EPBX 10,000 UNITS/ML VIAL 10000 UNITS IV PUSH (11:00)
--- NOTE | 2024-11-12 11:16 | P.PNNP_ITS ---
Progress Note: A&P Assessment and Plan (1) End stage renal disease: Code(s): N18.6 - End stage renal disease Status: Chronic Assessment and Plan: * HD today * continue //Thursday dialysis schedule while hospitalized * eventually transition back to home HD on discharge * follow electrolytes, volume status, and clearance * outpatient dialysis unit = [facility] * primary director surface transportation = Dr. Markie Ryan (2) Multiple falls: Code(s): R29.6 - Repeated falls Status: Acute Assessment and Plan: * s/p fall on the day of admission * however, per daughter, she has had multiple falls within the last month * no evidence of acute injury or trauma * CT of head and C-spine negative * EKG and UA unremarkable * PT/OT ongoing * fall precautions * pain control * noted plan for rehab on discharge (3) Anemia: Qualifiers: Anemia type: unspecified type Qualified Code(s): D64.9 - Anemia, unspecified Code(s): D64.9 - Anemia, unspecified Status: Chronic Assessment and Plan: * due to ESRD * [facility]ARFIELD/Epogen with HD * anemia studies with adequate iron stores * follow trend of H/H (4) Physical deconditioning: Code(s): R53.81 - Other malaise Status: Acute Assessment and Plan: * presumed etiology of #2 * due to recent hospitalization (?) * PT/OT following * noted plans for rehab on discharge (5) Congestive heart failure: Qualifiers: Heart failure chronicity: chronic Heart failure type: diastolic Q ualified Code(s): I50.32 - Chronic diastolic (congestive) heart failure Code(s): I50.9 - Heart failure, unspecified Status: Chronic Assessment and Plan: * compensated at this time * fluid removal with HD to maintain euvolemia * follow volume status (6) Hypertension: Qualifiers: Hypertension type: unspecified Qualified Code(s): I10 - Essential (primary) hypertension Code(s): I10 - Essential (primary) hypertension Status: Chronic Assessment and Plan: * reasonable control at this time * adjust medications as needed * follow trend of hemodynamics (7) Dementia: Code(s): F03.90 - Unspecified dementia, unspecified severity, without behavioral disturbance, psychotic disturbance, mood disturbance, and anxiety Status: Chronic Assessment and Plan: * known history * continue supportive therapy (8) Insulin dependent diabetes mellitus: Status: Chronic Assessment and Plan: * follow accu-cheks * glycemic control per hospitalist Not opposed to discharge to rehab from renal perspective if otherwise medically stable - she can resume her home hemodialysis schedule after her stay in rehab facility; tentatively plan M/W/F dialysis schedule while at acute rehab. Will continue to follow. L Subjective Date/time seen: 11/12/24 11:16 Interval history: Follow-up for end stage renal disease on hemodialysis. Tolerating dialysis treatment at the time of my visit (seen on HD at 11:05AM); no apparent distress noted when seen; working with PT/OT and appeasr to be tolerating reasonably well; no other issues/events overnight or earlier this morning; possible discharge today to rehab facility per case management. Exam 2 Narrative: General: elderly female in NAD Heart: normal S1 and S2; no rub Lungs: clear to auscultation Abdomen: soft, nontender, nondistended, positive bowel sounds Extremities: no cyanosis or clubbing; no edema Skin: warm and intact Objective Data Vital Signs Vital Signs: Vital Signs Temp Pulse Resp BP Pulse Ox O2 Del Method 11/12/24 11:15 61 117/56 L 11/12/24 11:00 63 105/60 11/12/24 10:45 61 119/57 L 11/12/24 10:30 60 124/57 L 11/12/24 10:15 62 142/64 H 11/12/24 10:00 61 157/69 H 11/12/24 09:45 60 166/66 H 11/12/24 09:30 63 176/71 H 11/12/24 09:15 66 116/85 11/12/24 09:00 66 160/67 H 11/12/24 08:45 71 102/55 L 11/12/24 08:30 83 92/53 L 11/12/24 08:15 70 149/63 H 11/12/24 08:04 70 168/77 H 11/12/24 07:55 98.8 F 72 20 164/66 H 100 11/12/24 04:40 98.5 F 75 16 141/80 H 98 11/11/24 21:05 97.1 F L 72 16 141/71 H 100 11/11/24 21:00 100 Room Air 11/11/24 20:17 73 11/11/24 14:00 97.7 F 65 16 169/65 H 100 Intake/Output Intake/Output: Intake & Output 11/09/24 11/10/24 11/11/24 11/12/24 23:59 23:59 23:59 23:59 Intake Total 1226 2498 590 Output Total 250 1200 400 150 Balance -007 70 9191 440 Meds/Results Medications: Active Medications Generic Name Dose Route Start Last Admin Trade Name Freq PRN Reason Stop Dose Admin Acetaminophen 650 mg 11/09/24 16:17 11/11/24 20:18 Acetaminophen 325 Mg Tablet PO 650 mg Q4H PRN Administration Mild Pain (1-3) or Fever Aspirin 81 mg 11/10/24 08:00 11/12/24 13:33 Aspirin 81 Mg Chewable Tablet PO 81 mg DAILY@0800 SOL Administration Atorvastatin Calcium 20 mg 11/10/24 21:00 11/11/24 20:19 Atorvastatin 20 Mg Tablet PO 20 mg QHS SOL Administration Benztropine Mesylate 2 mg 11/10/24 00:10 11/11/24 20:19 Benztropine Mesylate 1 Mg Tablet PO 2 mg HS SOL Administration Carvedilol 6.25 mg 11/10/24 00:10 11/12/24 09:00 Carvedilol 6.25 Mg Tablet PO Not Given Q12HR SOL Dextrose 12.5 gm 11/09/24 16:18 Dextrose 50% 25 Gm/50 Ml Syringe IV PUSH PRN PRN Hypoglycemia Protocol Epoetin Lucius-epbx 10,000 units 11/12/24 18:10 11/12/24 11:00 Epoetin Lucius-Epbx 10,000 Units/Ml Vial IV PUSH 11/12/24 18:11 10,000 units ONCE ONE Administration Gabapentin 100 mg 11/12/24 20:30 Gabapentin 100 Mg Capsule PO TuThSa [facility] Gabapentin 100 mg 11/11/24 09:00 11/12/24 13:33 Gabapentin 100 Mg Capsule PO 100 mg DAILY SOL Administration Glucagon 1 mg 11/09/24 16:18 Glucagon For Inj 1 Mg Vial IM PRN PRN Hypoglycemia Protocol Glucose 15 gm 11/09/24 16:18 Glucose Oral Gel 15 Gm Of Glucse In 37.5 Gm Tube PO PRN PRN Hypoglycemia Protocol Hydralazine HCl 25 mg 11/10/24 09:00 11/12/24 13:33 Hydralazine Hcl 25 Mg Tablet PO 25 mg TID SOL Administration Dextrose 1,000 mls @ 100 mls/hr 11/09/24 16:18 Dextrose 5% 1,000 Ml IVPB PRN PRN Hypoglycemia Protocol Albumin Human 50 mls @ 999 mls/hr 11/09/24 18:42 Albutein IVPB 12/09/24 18:41 Q10M PRN HYPOTENSION Insulin Aspart 2 - 5 units 11/10/24 08:00 11/12/24 12:13 Insulin Aspart (*Bkc) 100 Units/Ml SUB-Q Not Given TIDWM SOL Protocol Insulin Aspart 1 - 2 units 11/09/24 21:00 11/11/24 21:00 Insulin Aspart (*Bkc) 100 Units/Ml SUB-Q Not Given HS SOL Protocol Insulin Glargine 11 units 11/10/24 00:15 11/11/24 21:00 Insulin Glargine (*Bkc) 100 Units/Ml SUB-Q Not Given HS [facility] Lidocaine 2 patch 11/09/24 23:52 Lidocaine 5% Patch TOPICAL DAILY PRN Back Pain Multivitamins Therapeutic 1 tablet 11/10/24 09:00 11/12/24 13:33 Multivitamins Therapeutic Tab (*Bkc) PO 1 tablet DAILY SOL Administration Pantoprazole Sodium 40 mg 11/10/24 09:00 11/12/24 13:33 Pantoprazole 40 Mg Tablet PO 40 mg DAILY SOL Administration Radiology Results: ITS Impressions Head CT 11/09/24 10:11 IMPRESSION: No acute intracranial findings. Cervical Spine CT 11/09/24 10:22 IMPRESSION: No acute osseous abnormality cervical spine. Multilevel degenerative disc disease. Chest X-Ray 11/09/24 12:12 Impression: 1: Small left pleural effusion. Labs Labs: Laboratory Tests 11/12/24 05:32 11/12/24 05:32 Calcium 8.7 Phosphorus 4.4 Magnesium 1.7 Total Bilirubin 0.2 AST 22 ALT 19 Alkaline Phosphatase 117 Total Protein 7.0 Albumin 3.6 Vitamin B12 607.0 Folate 8.3
[2024-11-12] MEDS: HEPARIN SODIUM 1,000 UNITS/ML VIAL 6000 UNITS IV PUSH (11:57)
[2024-11-12 12:13] LABS: Glucose Point of Care 134 mg/dl (65-105)
--- NOTE | 2024-11-12 12:16 | PC.NURSE ---
pt back to room 325 from dialysis @1210 11/12/24.
--- NOTE | 2024-11-12 12:36 | P.DS_ITS ---
DS: Admitting Diagnosis Discharge Date 11/12/2024 Admitting Diagnosis Falls/Weakness DS: Discharge Diagnosis Discharge Diagnosis (1) Multiple falls: Code(s): R29.6 - Repeated falls Status: Acute (2) End stage renal disease on dialysis: Code(s): N18.6 - End stage renal disease; Z99.2 - Dependence on renal dialysis Status: Acute (3) Diabetes: Qualifiers: Chronic kidney disease stage: on chronic dialysis Diabetes mellitus complication detail: with chronic kidney disease Diabetes mellitus complication status: with kidney complications Diabetes mellitus senior care insulin use: unspecified senior care insulin use status Diabetes mellitus type: type 2 Qualified Code(s): E11.22 - Type 2 diabetes mellitus with diabetic chronic kidney disease; N18.6 - End stage renal disease; Z99.2 - Dependence on renal dialysis Code(s): E11.9 - Type 2 diabetes mellitus without complications Status: Chronic (4) Congestive heart failure: Qualifiers: Heart failure chronicity: chronic Heart failure type: diastolic Qualified Code(s): I50.32 - Chronic diastolic (congestive) heart failure Code(s): I50.9 - Heart failure, unspecified Status: Chronic (5) Hypertension: Qualifiers: Hypertension type: unspecified Qualified Code(s): I10 - Essential (primary) hypertension Code(s): I10 - Essential (primary) hypertension Status: Chronic (6) Physical deconditioning: Code(s): R53.81 - Other malaise Status: Acute (7) Diabetic neuropathy: Code(s): E11.40 - Type 2 diabetes mellitus with diabetic neuropathy, unspecified Status: Acute (8) Orthostatic hypotension: Code(s): I95.1 - Orthostatic hypotension Status: Acute Plan Discharged to SNF DS: Summary Hospital Course Reason for hospitalization: Falls/Weakness Hospital Course: Admission: Patient was a 74 y/o F with PMH of diabetes, ESRD on HD (done at home by daughter), Parkinson's, diabetes, HFpEF, dementia, anemia, schizophrenia, and venous lower mess presents here with fall. The patient presents here from home via EMS on 11/09 for further evaluation after a fall. The daughter reported that she heard a fall downstairs. Patient had fallen in the bathroom. The patient reports a positive head strike and unknown loss of consciousness, patient unsure. Post fall she reports low back pain. Denies neck pain, headache, focal weakness or numbness, chest pain, or shortness of breath. She does report dizziness, however this is chronic for her. She is not currently on anticoagulation. Daughter concerned as the patient has become increasingly weak. She initially attributed this to a UTI as she was recently admitted at an OSH for same. She is worried that she has become deconditioned and will be at risk for further falls, requesting rehab placement. Patient was admitted for further evaluation and PT/OT evaluation. Head CT showed no acute abnormalities. C-spine CT showed no acute osseous abnormality and multilevel degenerative disc disease. CXR showed a small left pleural effusion. Patient blood pressure continue to be hypertensive and with episodes of hypotension likely relating to her falls and dizziness which could be contributed to her ESRD and fluid shifts. Patient had no other complaints during her hospitalization and labs were at baseline. She did have dialysis x 2 will hopsitalized and tolerated well. She was evaluated by PT/OT and it was recommend for rehab. Patient and family both agreed and patient was discharged to a SNF for rehab and I recommended compression stockings with ambulation and continued dialysis TTS. Status at Discharge Functional status at discharge: uses cane/walker Overall status at discharge: patient is progressing back to baseline Time Spent with Patient Time attestation: Total time spent providing and/or coordinating discharge services: Exam Const: General: comfortable and no acute distress Other: , female, nontoxic appearance HENMT: Face/Nose/Sinus: Normal nares present Mouth: Yes moist mucous membranes Eyes: General: appearance normal, both eyes and all related structures Sclera: sclerae normal Pupils: Equal, round and reactive pupils present EOM: EOMs intact bilaterally Neck: Neck: supple and no JVD Resp: Effort & Inspection: normal respiratory effort Auscultation: clear to auscultation bilaterally Cardio: Rate: regular rate Rhythm: regular rhythm Other: S1-S2 present without murmur, rub, ectopy GI: Other: Abdomen soft, nondistended, nontender. Normoactive bowel sounds in all quadrants. Skin: General skin exam: normal color and no rashes or lesions noted Wounds: no wounds Other: Mild diaphoresis Neuro: Cranial nerves: Yes Equal, round and reactive pupils present Speech: normal speech Motor exam (neuro): 5/5 motor strength present throughout Sensory Exam: normal sensation Other: Unsteady gait Extrem: General: normal to inspection Psych: Mental Status: mental status grossly normal Affect: normal affect DS: Data Data Completed and Pending Labs on day of discharge: Labs from last 24 hours 11/12/24 11/12/24 11/12/24 12:10 07:33 05:32 WBC 10.3 H RBC 2.51 L Hgb 8.4 L Hct 27.3 L MCV 108.8 H MCH 33.5 MCHC 30.8 L RDW 15.4 H Plt Count 254 MPV 9.9 Sodium 138 Potassium 4.0 Chloride 105 Carbon Dioxide 20 L Anion Gap 13 H BUN 43 H D Creatinine 5.47 H Estim Creat Clear Calc 7 Estimated GFR 8 L Glucose 144 H POC Capillary Glucose 134 H 148 H Calcium 8.7 Phosphorus 4.4 Magnesium 1.7 Iron TIBC % Saturation Ferritin Total Bilirubin 0.2 AST 22 ALT 19 Alkaline Phosphatase 117 Total Protein 7.0 Albumin 3.6 Vitamin B12 607.0 Folate 8.3 11/11/24 11/11/24 11/11/24 19:51 16:24 08:09 WBC RBC Hgb Hct MCV MCH MCHC RDW Plt Count MPV Sodium Potassium Chloride Carbon Dioxide Anion Gap BUN Creatinine Estim Creat Clear Calc Estimated GFR Glucose POC Capillary Glucose 179 H 220 H Calcium Phosphorus Magnesium Iron 56 TIBC 216 L % Saturation 26 Ferritin 378.00 H Total Bilirubin AST ALT Alkaline Phosphatase Total Protein Albumin Vitamin B12 Folate Discharge Plan Discharge Attending physician on discharge: Lawrence Silverman Consulting providers: Sarahy Constantino; Evelina Malloy Discharging Clinician: Sarahy Constantino Anticipated Discharge Date/Time: 11/12/24 12:28 Patient Disposition: Inpatient Rehab Facility Activity: may shower and as tolerated Diet: diabetic and renal Discharge Instructions: Falls/Orthostatic hypotension: * PT/OT for strength training, endurance and gait stability * You have want is called orthostatic hypotension which is a drop in BP when changing position which can be contributing to your frequent falls and dizziness which is common in dialysis patient due to constant fluid shifts. I recommend to wear compression stockings when ambulating and to rise slowly from changing positions. You may remove the stocking when at rest or sleeping. Please follow-up with your ship unloader as scheduled and your next dialysis will be scheduled for Thursday11/15/2024 How can you care for yourself at home? ? Keep track of any new symptoms or changes in your symptoms. ? Rest until you feel better. ? Be safe with medicines. Take your medicines exactly as prescribed. Call your doctor if you think you are having a problem with your medicine. ? Do not drive after taking a prescription pain medicine. ? Ensure to follow-up with primary care physician as indicated and provide updated medication list provided to you at discharge. When should you call for help? Call 911 anytime you think you may need emergency care. For example, call if: ? You passed out (lost consciousness). Call your doctor now or seek immediate medical care if: ? You have new symptoms like fever, difficulty breathing, Chest pain, vomiting, or rash. ? You have new or different pain. ? You are confused and are having trouble thinking clearly. ? Your symptoms are getting worse. Watch closely for changes in your health, and be sure to contact your doctor if: ? You do not get better as expected. Patient Instructions: Dialysis Nutrition Plan (DC), Hypotension (DC), End Stage Kidney Disease (DC), Syncope in Older Adults (DC) Patient Language: [place] Stand Alone Forms: General Discharge Information, Residential Discharge Discharge Medications: New gabapentin 100 mg Capsule 100 mg PO DAILY Qty: 30 0RF Continued acetaminophen 325 mg Tablet 650 mg PO Q6H PRN (Reason: Pain) insulin glargine [Lantus Solostar U-100 Insulin] 100 unit/mL (3 mL) insulin pen 11 unit SUBCUT HS Rx Instructions: HOLD IF BLOOD GLUCOSE < 130 multivitamin Tablet 1 tablet PO DAILY lidocaine 5 % Adhesive Patch,Medicated 2 patch TOPICAL DAILY PRN (Reason: Back Pain) Rx Instructions: to bilateral lower back insulin lispro 100 unit/mL Insulin Pen 1 - 4 sliding scale dose SUBCUT USEASDIRECTD Patient Comments: 4 SCHEDULED WITH MEALS, IF BLOOD GLUCOSE > 100 Rx Instructions: 150 or less: no insulin 151-200: 1 unit 201-250: 2 units 251-300: 3 units greater than 300: 4 units pantoprazole 40 mg tablet,delayed release (DR/EC) 40 mg PO DAILY aspirin 81 mg tablet,chewable 81 mg PO DAILY hydralazine 25 mg tablet 25 mg PO TID Rx Instructions: HOLD DOSE PRIOR TO DIALYSIS TREATMENT benztropine 2 mg tablet 2 mg PO HS atorvastatin 20 mg tablet 20 mg PO QPM carvedilol 6.25 mg tablet 6.25 mg PO Q12H meclizine 25 mg tablet 25 mg PO DAILY Rx Instructions: START ON 11/07/24, END ON 11/11/24 Changed gabapentin 100 mg capsule 100 mg PO .COMPLEX Qty: 30 0RF Rx Instructions: 100 mg orally; ONLY DURING DIALYSIS ON DIALYSIS DAYS post dialysis treatment Discontinued ferrous sulfate 325 mg (65 mg iron) Tablet 325 mg PO DAILY cefdinir 300 mg capsule 300 mg PO DAILY Rx Instructions: START 11/07/24, END 11/10/24 Date of admission: 11/10/24 13:55 Primary Care Provider: Nilo,Cherelle Butterfield Admitting Provider: Trevor Coleman Attending physician on admission: Trevor Coleman Condition: Stable Quality VTE Prophylaxis VTE prophylaxis: mechanical ordered -Patient's previous records reviewed on admission -ER notes reviewed in detail on admission -discussed all findings and current treatment plan with patient/Family/POA -Consultations reviewed for recommendations -Patient's disposition for safe discharge discussed with correctional casework specialist Dictation performed by [employer] direct speech recognition software, therefore transportation program director variants and typographical errors may occur. Hospitalist MIPS Heart Failure (Exclusion) Patient has history of Heart Transplant or Left Ventricular Assistive Device?: No IF YES, STOP HERE Heart Failure (Qualifier) Patient has current or prior documentation of LVEF less than or equal to 40%, or mod/servere depressed LVSF?: No IF NO, STOP HERE
[2024-11-12] MEDS: PANTOPRAZOLE 40 MG TABLET PO (13:33)
[2024-11-12] MEDS: MULTIVITAMINS THERAPEUTIC TAB (*BKC) 1 TABLET PO (13:33)
[2024-11-12] MEDS: GABAPENTIN 100 MG CAPSULE PO (13:33)
[2024-11-12] MEDS: ASPIRIN 81 MG CHEWABLE TABLET PO (13:33)
[2024-11-12] MEDS: hydrALAZINE HCL 25 MG TABLET PO ×2 (13:33→16:52)
--- NOTE | 2024-11-12 14:53 | PC.NURSE ---
This RN called report to receiving facility, [facility]; report given to Shira LAY @1450 11/12/24.
[2024-11-12 16:26] LABS: Glucose Point of Care 216 mg/dl (65-105)
[2024-11-12] MEDS: INSULIN ASPART (*BKC) 100 UNITS/ML SUB-Q (16:53)
== END 2024-11-12 17:50 | DRG 312 ==
LOC: ANHED 15:13 → ANH3MEDSUR 16:53
PROVIDERS: Internal Medicine Nephrology; Student in an Organized Health Care Education/Training Program; Admitting Provider General Practice; Emergency Provider Physician Assistant; PCP Hospitalist; Visit Provider Nurse Practitioner Family
DX: I95.1 Orthostatic hypotension (principal); N18.6 End stage renal disease; I13.2 Hypertensive heart and chronic kidney disease with heart failure and with stage 5 chronic kidney disease, or end stage renal disease; I50.32 Chronic diastolic (congestive) heart failure; G21.19 Other drug induced secondary parkinsonism; E11.22 Type 2 diabetes mellitus with diabetic chronic kidney disease; E11.40 Type 2 diabetes mellitus with diabetic neuropathy, unspecified; F03.90 Unspecified dementia, unspecified severity, without behavioral disturbance, psychotic disturbance, mood disturbance, and anxiety; F20.9 Schizophrenia, unspecified; Z20.822 Contact with and (suspected) exposure to COVID-19; Z79.4 Long term (current) use of insulin; Z79.82 Long term (current) use of aspirin; Z89.411 Acquired absence of right great toe
CPT/HCPCS: 36415; 70450; 71045; 72125; 80053; 81001; 82607; 82728; 82746; 82948; 83036; 83540; 83550; 83735; 84100; 85025; 85027; 85610; 85730; 86706; 87340; 87637; 87641; 93005; 96375; 96376; 97161; 97166; 99285; A9270; G0257; G0378; J1644; J1815; J7030; Q5105

== ENCOUNTER 2024-12-26 11:55 | Emergency (ER) | payer MEDICARE, MEDICAID, SELFPAY ==
--- NOTE | ~2024-12-26 | XR_ITS ---
EXAM/PROCEDURE: XR chest 2V - 12/26/2024 14:27 CDT HISTORY: 74 years old Female with chest pain TECHNIQUE: Two view(s) of the chest. COMPARISON: None available. FINDINGS: LUNGS/ PLEURA: No focal consolidation. No appreciable pneumothorax or large pleural effusion. HEART/ MEDIASTINUM: Heart appears normal in size. BONES: No acute osseous abnormality. OTHER: Visualized upper abdomen is unremarkable. Tip of the dialysis catheter is in the midright atri um. IMPRESSION: No acute process. Reviewed, dictated and finalized at location A. IMPRESSION: No acute process.
[2024-12-26 11:57] VITALS: BP 176/66; PULSE 73; RESP 16; TEMP 36.4; O2SAT 100
--- NOTE | 2024-12-26 11:57 | ECG_ITS ---
Test Date: 2024-12-26 12:08:20 Measurements Intervals [place] Rate: 69 P: 73 CA: 157 QRS: 12 QRSD: 69 T: 81 QT: 413 QTc: 445 Interpretive Statements SINUS RHYTHM LOW QRS VOLTAGE IN PRECORDIAL LEADS [QRS DEFLECTION < 1.0 mV IN CHEST LEADS] NONSPECIFIC T-WAVE ABNORMALITY Compared to ECG 11/09/2024 11:54:01 no changes Electronically Signed On 12-26-2024 22:16:00 CDT by La López M.D.
--- OUTSIDE RECORDS SUMMARY | 2024-12-26 11:58 | XMS_ITS ---
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 Name Role Phone Cherelle Corcoran MD Primary Care Pro vider Mark Queen MD Unavailable [phone] Rudolph Welch MD Unavailable [phone] Markie Ryan MD Unavailable Jimbo Strauss MD Unavailable [phone] Jaya Grier MD Unavailable Edgardo Kauffman MD Unavailable Dialysis Access Sites Type Status Location Placement Date Removal Da te Hemodialysis Cath Double 10/15/23 Tunneled catheter Right Internal Jugular Active Right Neck (side) - Anterior 10/15/2023 Procedures Procedure Name Priority Date/Time Associated Diagnosis Comments POCT GLUCOSE Routine 12/26/2024 9:39 AM CDT Type 2 diabetes mellitus with chronic kidney disease on chronic dialysis, with long-term current use of insulin (HCC) EGFR Timed 11/25/2024 12:58 PM CDT COMPREHENSIVE METABOLIC PANEL Timed 11/25/2024 12:58 PM CDT DIFFERENTIAL AUTO Timed 11/25/2024 12: 58 PM CDT CBC WITH AUTO DIFFERENTIAL Timed 11/25/2024 12:58 PM CDT EGFR Routine 11/21/2024 4:15 AM CDT COMPREHENSIVE METABOLIC PANEL Routine 11/21/2024 4:15 AM CDT DIFFERENTIAL AUTO Routine 11/21/2024 4:1 5 AM CDT CBC WITH AUTO DIFFERENTIAL Routine 11/21/2024 4:15 AM CDT HEPATITIS B SURFACE ANTIGEN Routine 11/15/2024 5:15 AM CDT HEPATITIS B CORE ANTIBODY, TOTAL Routine 11/15/2024 5:15 AM CDT EGFR Routine 11/14/2024 1:00 PM CDT COMPREHENSIVE METABOLIC PANEL Routine 11/14/2024 1:00 PM CDT DIFFERENTIAL AUTO Routine 11/14/2024 1:0 0 PM CDT CBC WITH AUTO DIFFERENTIAL Routine 11/14/2024 1:00 PM CDT HEPATITIS B SURFACE ANTIBODY (IMMUNE STATUS) STAT 11/14/2024 1:00 PM CDT MANUAL DIFFERENTIAL Routine 11/13/2024 5 :35 AM CDT CBC WITH AUTO DIFFERENTIAL Routine 11/13/2024 5:35 AM CDT EGFR Routine 11/13/2024 5:35 AM CDT COMPREHENSIVE METABOLIC PANEL Routine 11/13/2024 5:35 AM CDT POCT GLUCOSE DEVICE Routine 11/05/2024 1 1:49 AM CDT EGFR Routine 11/05/2024 6:52 AM CDT DIFFERENTIAL AUTO Routine 11/05/2024 6:5 2 AM CDT CBC WITH AUTO DIFFERENTIAL Routine 11/05/2024 6:52 AM CDT BASIC METABOLIC PANEL Routine 11/05/2024 6:52 AM CDT POCT GLUCOSE DEVICE Routine 11/04/2024 9 :22 PM CDT POCT GLUCOSE DEVICE Routine 11/04/2024 4 :33 PM CDT POCT GLUCOSE DEVICE Routine 11/04/2024 1 1:12 AM CDT POCT GLUCOSE DEVICE Routine 11/04/2024 9 :37 AM CDT HEMODIALYSIS Routine 11/04/2024 6:42 AM CDT POCT GLUCOSE DEVICE Routine 11/04/2024 6 :09 AM CDT EGFR Routine 11/04/2024 4:16 AM CDT DIFFERENTIAL AUTO Routine 11/04/2024 4:1 6 AM CDT CBC WITH AUTO DIFFERENTIAL Routine 11/04/2024 4:16 AM CDT BASIC METABOLIC PANEL Routine 11/04/2024 4:16 AM CDT POCT GLUCOSE DEVICE Routine 11/03/2024 8 :27 PM CDT POCT GLUCOSE DEVICE Routine 11/03/2024 3 :45 PM CDT MRI BRAIN WO CONTRAST IP Routine 11/03/2024 1:17 PM CDT POCT GLUCOSE DEVICE Routine 11/03/2024 1 1:14 AM CDT POCT GLUCOSE DEVICE Routine 11/03/2024 7 :17 AM CDT EGFR Routine 11/03/2024 2:33 AM CDT DIFFERENTIAL AUTO Routine 11/03/2024 2:3 3 AM CDT CBC WITH AUTO DIFFERENTIAL Routine 11/03/2024 2:33 AM CDT BASIC METABOLIC PANEL Routine 11/03/2024 2:33 AM CDT POCT GLUCOSE DEVICE Routine 11/02/2024 9 :40 PM CDT AMMONIA Routine 11/02/2024 6:[address] HEAD WO CONTRAST IP Routine 11/02/2024 6 :31 PM CDT POC BLOOD GAS AND CHEMISTRIES, ARTERIAL Routine 11/02/2024 6:17 PM CDT POCT GLUCOSE DEVICE Routine 11/02/2024 5 :13 PM CDT POCT GLUCOSE DEVICE Routine 11/02/2024 1 2:32 PM CDT HEMODIALYSIS Routine 11/02/2024 9:02 AM CDT POCT GLUCOSE DEVICE Routine 11/02/2024 7 :50 AM CDT HEPATITIS B SURFACE ANTIBODY (IMMUNE STATUS) STAT 11/02/2024 7:14 AM CDT HEPATITIS B SURFACE ANTIGEN STAT 11/02/2024 7:14 AM CDT EGFR Routine 11/02/2024 3:48 AM CDT DIFFERENTIAL AUTO Routine 11/02/2024 3:4 8 AM CDT FOLATE Routine 11/02/2024 3:48 AM CDT CBC WITH AUTO DIFFERENTIAL Routine 11/02/2024 3:48 AM CDT BASIC METABOLIC PANEL Routine 11/02/2024 3:48 AM CDT HEMOGLOBIN A1C Routine 11/01/2024 10:05 PM CDT VITAMIN B12 Routine 11/01/2024 10:05 PM CDT LIPID PANEL Routine 11/01/2024 10:05 PM CDT CRP (ACUTE PHASE) Routine 11/01/2024 10: 05 PM CDT ERYTHROCYTE SEDIMENTATION RATE Routine 11/01/2024 10:05 PM CDT LACTATE Routine 11/01/2024 10:05 PM CDT PHOSPHORUS Routine 11/01/2024 10:05 PM CDT MAGNESIUM Routine 11/01/2024 10:05 PM CDT POCT GLUCOSE DEVICE Routine 11/01/2024 9 :59 PM CDT URINALYSIS, MICROSCOPIC ONLY STAT 11/01/2024 7:23 PM CDT URINE CULTURE STAT 11/01/2024 7:23 PM CDT URINALYSIS AND REFLEX TO MICROSCOPIC AND CULTURE STAT 11/01/2024 7:[address] CHEST ABDOMEN PELVIS W CONTRAST ED 11/01/2024 6:16 PM CDT CTA HEAD NECK W WO CONTRAST ED 11/01/2024 6:15 PM CDT TROPONIN T HIGH-SENSITIVITY 2-HOUR Timed 11/01/2024 4:[address] HEAD WO CONTRAST ED 11/01/2024 2 :37 PM CDT XR CHEST 1 VIEW ED 11/01/2024 2:27 PM CDT EGFR STAT 11/01/2024 2:03 PM CDT DIFFERENTIAL AUTO STAT 11/01/2024 2:0 3 PM CDT PRO B-TYPE NATRIURETIC PEPTIDE STAT 11/01/2024 2:03 PM CDT TROPONIN T HIGH-SENSITIVITY SERIES (BASELINE, 2HR, 4HR, 6HR) STAT 11/01/2024 2:03 PM CDT CBC WITH AUTO DIFFERENTIAL STAT 11/01/2024 2:03 PM CDT COMPREHENSIVE METABOLIC PANEL STAT 11/01/2024 2:03 PM CDT ECG 12-LEAD STAT 11/01/2024 1:59 PM CDT URINALYSIS, MICROSCOPIC ONLY Routine 10/31/2024 9:47 AM CDT UTI symptoms URINALYSIS AND REFLEX TO MICROSCOPIC AND CULTURE Routine 10/31/2024 9:47 AM CDT UTI symptoms XR CHEST PA LATERAL 2 VIEWS Schedule RA, Read RA (Appt Today, Awaiting Results) 10/24/2024 12:24 PM CDT SOB (shortness of breath) CT HEART CALCIUM Schedule Routine, Read Routine (OP Routine) 10/17/2024 9:30 AM CDT DIABETIC EYE EXAM Routine 07/27/2024 12: 37 PM PREPARATION SUPERVISOR CANNING COLONOSCOPY 03/01/2024 8:49 AM CDT DEXA AXIAL SKELETON BONE DENSITY 1 OR MORE SITES Schedule Routine, Read Routine (OP Routine) 01/22/2024 12:32 PM CDT Post-menopausal SCREENING MAMMOGRAM BILATERAL W STALIN Schedule Routine, Read Routine (OP Routine) 01/22/2024 12:21 PM CDT Encounter for screening mammogram for breast cancer HEPATITIS PANEL, ACUTE Routine 10/15/2023 6:50 AM CDT ALBUMIN CREATININE RATIO, URINE Routine 10/10/2022 11:39 AM CDT Diabetic nephropathy (HCC) from Last 3 Months or Most Recently Relevant to Health Maintenance Allergies No known active allergies Medications FreeStyle Madhav 3 [facility] [place] Madhav 3 reader to scan Madhav 3 sensor 2023 Active pen needle, diabetic (Easy Touch) 32 gauge x 5/32 needleIndication s:Type 2 diabetes mellitus with diabetic neuropathy, with long-term current use of insulin ([facility]) USE DIRECTED FOUR TIMES DAILY 100 each 3 2023 Active fluticasone propionate (FLONASE) 50 mcg/actuation nasal spray Administer 2 sprays into each nostril daily as needed for rhinitis Active methoxy peg-epoetin beta (MIRCERA INJ) 75 mcg once every 2 weeks 04/18 Active gabapentin (NEURONTIN) 100 mg capsuleIndicatio ns:Diabetic polyneuropathy associated with type 2 diabetes mellitus (HCC) TAKE 1 CAPSULE BY MOUTH 3 TIMES PER WEEK AFTER HEMODIALYSIS 40 capsule 1 2023 Active atorvastatin (LIPITOR) 20 mg tablet Take 1 tablet (20 mg total) by mouth nightly 2023 Active blood-glucose sensor (FreeStyle Madhav 3 Plus Sensor) deviceIndication s:Type 2 diabetes mellitus with diabetic nephropathy, with long-term current use of insulin ([facility]) Use to continually monitor glucose, change sensor every 15 days 6 each 3 2024 Active risperiDONE (RisperDAL) 2 mg tablet Take 1 tablet (2 mg total) by mouth daily [address] (PROTONIX) 40 mg EC tabletIndication s:Gastroesophage al reflux disease without esophagitis Take 1 tablet (40 mg total) by mouth daily before breakfast 90 tablet 3 2024 Active insulin lispro (HumaLOG, ADMELOG) 100 unit/mL pen for injectionIndicat ions:Type 2 diabetes mellitus with diabetic nephropathy, with long-term current use of insulin ([facility]) Inject 4 units SQ before meals along with sliding scale. Max TDD 20 units 15 mL 3 2024 Active cholecalciferol (VITAMIN D-3) 5,000 unit capsule Take 1 capsule (5,000 Units total) by mouth daily Active meclizine (ANTIVERT) 25 mg tablet Take 1 tablet (25 mg total) by mouth daily for 5 days 5 tablet 2024 Active LANTUS 100 unit/mL (3 mL) pen for injection Inject 11 Units under the skin nightly 6 mL 2024 Active Additional Information Patient taking differently: 14 Unitssubcutaneous Nightly, Reported on 12/26/2024 benztropine (COGENTIN) 2 mg tablet Take 1 tablet (2 mg total) by mouth nightly Active lidocaine (LIDODERM) 5 % Place 1 patch on the skin daily for 12 hours Remove & discard patch within 12 hours or as directed by MD. 30 patch 11 2024 Active hydrALAZINE (APRESOLINE) 50 mg tablet 1 tablet (50 mg total) 2024 Active carvediloL (COREG) 6.25 mg tabletIndication s:Hypertension associated with diabetes (HCC) Take 1 tablet (6.25 mg total) by mouth 2 (two) times a day with meals 180 tablet 11/29 Active aspirin 81 mg chewable tablet CHEW AND SWALLOW 1 TABLET(81 MG) BY MOUTH DAILY 90 tablet 1 2024 Active lidocain-me.sali xwd-miao-qkeih 4-20-0.025-5 % adhesive patch,medicated Apply 1 patch topically 2024 Active blood glucose diagnostic (Easy Touch Test Strip) stripIndications :Type 2 diabetes mellitus with chronic kidney disease on chronic dialysis, with long-term current use of insulin (HCC) 1 each by other route daily 100 strip 3 2024 Active omeprazole (PriLOSEC) 20 mg capsuleIndicatio ns:Gastroesophag eal reflux disease, unspecified whether esophagitis present Take 1 capsule (20 mg total) by mouth daily 90 capsule 09/06 Discontinued aspirin 81 mg chewable tablet Take 1 tablet (81 mg total) by mouth daily 90 tablet 1 12/19 Discontinued calcitRIOL (ROCALTROL) 0.25 mcg capsule Take 1 capsule (0.25 mcg total) by mouth 12/26 Discontinued( Patient Reported) blood glucose diagnostic (Easy Touch Test Strip) stripIndications :Type 2 diabetes mellitus with diabetic neuropathy, with long-term current use of insulin (HCC) 1 each by other route daily 100 strip 3 12/26 Discontinued( Reorder) carvediloL (COREG) 6.25 mg tablet Take 1 tablet (6.25 mg total) by mouth 2 (two) times a day with meals 11/29 Discontinued hydrALAZINE (APRESOLINE) 25 mg tablet Take 1 tablet (25 mg total) by mouth 3 (three) times a day 90 tablet 11/29 Discontinued( Alternate therapy) carvediloL (COREG) 3.125 mg tablet 1 tablet (3.125 mg total) 11/29 Discontinued Active Problems Problem Noted Date Diagnosed Date Type 2 diabetes mellitus wit h chronic kidney disease on chronic dialysis, with long-term current use of insulin 12/25/2024 Frailty 11/29/2024 History of hyperlipidemia 11/01/2024 History of diabetes [...] 07/07/2024 Hyperlipidemia associated with type 2 diabetes jose walter 07/07/2024 Assessment & Plan (10/24/2024 11:30 AM CDT): Preivously discussed ok to restart atorvastatin, but also given overall health status reasonable to continue holding, especially if had side effects with restarting Assessment & Plan (07/14/2024 2:30 PM PREPARATION SUPERVISOR CANNING): Continue Lipitor Assessment & Plan (07/14/2024 8:56 AM PREPARATION SUPERVISOR CANNING): Ok to restart atorvastatin, but also given overall health status reasonable to continue holding, especially if had side effects with restarting Anemia 06/17/2024 Gastritis without bleeding 06/17/2024 Thalamic stroke 04/22/2024 Debility 04/21/2024 Involuntary movements 03/18/2024 Left hand pain 03/16/2024 Complete tear of left rotator cuff 02/05/2024 Upper GI bleeding 01/30/2024 Coffee ground emesis 01/29/2024 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 Assessment & Plan (07/14/2024 8:51 AM PREPARATION SUPERVISOR CANNING): Following with nephrology Assessment & Plan (01/06/2024 [...] for HD; plan for short session today -OMAR, phos ordered daily Assessment & Plan (11/10/2023 4:43 PM CDT): Following with nephrology AMS (altered mental status) 10/30/2023 Assessment & Plan (05/06/2024 7:49 AM PREPARATION SUPERVISOR CANNING): Reviewed hospital discharge summary Now resolved Upcoming appointment with neurology Leg swelling 10/07/2023 Bandemia 12/20/2022 Shortness of breath 12/13/2022 Chronic diastolic congestive heart failure 12/06 Assessment & Plan (11/29/2024 5:27 PM CDT): Following with cardiology Assessment & Plan (10/24/2024 1:54 PM CDT): [...] stable Assessment & Plan (07/24/2023 1:51 PM PREPARATION SUPERVISOR CANNING): Chronic/stable Parkinsonism 08/14/2022 Assessment & Plan (10/24/2024 10:57 AM CDT): Following with neurology Assessment & Plan (07/14/2024 8:54 AM PREPARATION SUPERVISOR CANNING): Following with neurology, recommend reaching out to them in regards to restarting benztropine. Consider waiting until after restarts other medications given daughter reports tremors controlled off benztropine currently Assessment & Plan (11/10/2023 4:43 PM CDT): Following with neurology On cogentin Assessment & Plan (07/24/2023 1:50 PM PREPARATION SUPERVISOR CANNING): Following with neurology On cogentin twice a day Assessment & Plan (01/23/2023 9:20 AM CDT): Following with neurology On cogentin twice a day Assessment & Plan (10/10/2022 10:41 AM CDT): Following with neurology On cogentin Assessment & Plan (08/14/2022 10:46 AM PREPARATION SUPERVISOR CANNING): Following with neurology, reviewed note On cogentin [...] care Assessment & Plan (08/14/2022 10:47 AM PREPARATION SUPERVISOR CANNING): Following with podiatry Assessment & Plan (04/02/2022 [...] - renal consulted regarding volume management, possible watermelon inspector dialysis planning, expedite OP f/u. Serologies and urine studies ordered. ED neg, compliments neg, cryoglobulin pending, ANCA pending, HIV neg. Continued -Added metolazone 2.5mg/daily per renal 09/13- with improving swelling, Cr bump to 2.33 so held further -Transitioned to PO agents prior to DC (09/17) with ongoing clinical improvement. Goal weight 155lbs -Home with family at [place], loom doffer consulted to review salt restrictions. -outpatient BMP, [...] - renal consulted regarding volume management, possible watermelon inspector dialysis planning, expedite OP f/u. Serologies and urine studies ordered. ED neg, compliments neg, cryoglobulin pending, ANCA pending, HIV neg. Continued -Added metolazone 2.5mg/daily per renal 09/13- with improving swelling, Cr bump to 2.33 so held further -Anticipate likely transition to PO agents prior to DC (?09/17) with ongoing clinical improvement. Goal weight 155lbs -Home with family at [place], loom doffer consulted to review salt restrictions. Assessment & [...] - renal consulted regarding volume management, possible watermelon inspector dialysis planning, expedite OP f/u. Serologies and urine studies ordered. -Added metolazone 2.5mg/daily per renal. -Anticipate likely transition to PO agents prior to DC with ongoing clinical improvement. Goal weight 145-150lbs -Home with family at [place], loom doffer consulted to review salt restrictions. Assessment & [...] - renal consulted regarding volume management, possible watermelon inspector dialysis planning, expedite OP f/u. Serologies and [...] - renal consulted regarding volume management, possible watermelon inspector dialysis planning, expedite OP f/u. Serologies and [...] - renal consulted regarding volume management, possible watermelon inspector dialysis planning, expedite OP f/u. Assessment & [...] net neg 1/2-1L/day. -consider renal consult regarding watermelon inspector dialysis planning, expedite OP f/u. Assessment & [...] 1/2-1L/day. -consider renal consult regarding residential dialysis planning. Assessment & Plan (09/06/2021 10:28 [...] without behavioral disturbance 08/19/2021 Assessment & Plan (11/29/2024 5:25 PM CDT): Following with neurology Assessment & Plan (10/24/2024 10:56 AM CDT): Following with neurology Assessment & Plan (07/14/2024 8:53 AM PREPARATION SUPERVISOR CANNING): Following with neurology Assessment & Plan (01/05/2024 10:40 PM CDT): Follows with neurology. -continue risperidone 2mg QHS -continue benztropine 2mg daily Assessment & Plan (11/10/2023 4:37 PM CDT): Following with neurology Assessment & Plan (07/24/2023 1:50 PM PREPARATION SUPERVISOR CANNING): Following with neurology Assessment & Plan (01/23/2023 9:18 AM CDT): Following with neurology Assessment & Plan (10/10/2022 10:37 AM CDT): Following with neurology, ordered MRI, # given to son to schedule Assessment & Plan (06/09/2022 3:37 PM PREPARATION SUPERVISOR CANNING): Needs to reschedule with neurology Looking into custodial, but declined for [facility] for schizoaffective disorder Assessment & [...] needed Assessment & Plan (06/09/2022 3:37 PM PREPARATION SUPERVISOR CANNING): Reviewed PM & PHQ Screening PHQ-2 Total [...] disorder, bipolar type 1 Assessment & Plan (10/24/2024 10:57 AM CDT): Following with psychiatry Assessment & Plan (08/18/2024 8:44 AM PREPARATION SUPERVISOR CANNING): Chronic, stable. Does not report any stephanie [...] discussed. Assessment & Plan (07/14/2024 8:54 AM PREPARATION SUPERVISOR CANNING): Following with psychiatry, recommend reaching out to [...] psychiatry Assessment & Plan (07/24/2023 1:50 PM PREPARATION SUPERVISOR CANNING): Following with psychiatry Assessment & Plan (01/23/2023 [...] discussed. Assessment & Plan (08/09/2021 5:42 AM PREPARATION SUPERVISOR CANNING): Following with psychiatry Assessment & Plan (08/07/2021 3:28 PM PREPARATION SUPERVISOR CANNING): Chronic condition, switch to Haldol and has had multiple different problems including acute kidney failure in infectious process. [facility] Confounded by delirium. Currently experiencing delirium will discontinue Haldol and return to Risperdal as previously taking. Risperdal was discontinued due to poorly-controlled diabetes. Monitor in 1 to 2 weeks. Assessment & Plan (07/03/2021 7:24 AM PREPARATION SUPERVISOR CANNING): Following with psychiatry D/c risperidone, started on haldol Assessment & Plan (07/01/2021 9:16 PM PREPARATION SUPERVISOR CANNING): Chronic, stable. 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 The patient previously lived on her own and was observed to be hoarding. See additional problems-dementia. Evaluate again in 1 month after starting Risperdal. Iron deficiency anemia 04/02/2020 Assessment & Plan (05/06/2024 7:51 AM PREPARATION SUPERVISOR CANNING): Recommend discussing IV iron with nephrology Assessment & Plan (10/02/2020 4:35 PM CDT): Continue iron Assessment & Plan (05/28/2020 1:51 PM PREPARATION SUPERVISOR CANNING): Iron levels recently normalized, but still anemic, repeat today Assessment & Plan (04/16/2020 11:45 AM CDT): Recent iron within normal limits, H/H improving, continue supplementation until normalized Gastroesophageal reflux disease without esophagi tis 04/02/2020 Assessment & Plan (10/24/2024 10:57 AM CDT): continue protonix Following with GI Assessment & Plan (07/14/2024 8:56 AM PREPARATION SUPERVISOR CANNING): Restart protonix Upcoming EGD Assessment & Plan (01/05/2024 10:40 PM CDT): -continue famotidine Assessment & Plan (10/02/2020 4:35 PM CDT): Continue omeprazole Assessment & Plan (07/24/2020 2:06 PM PREPARATION SUPERVISOR CANNING): Recurrent symptoms off omeprazole, restart Assessment & Plan (05/28/2020 1:51 PM PREPARATION SUPERVISOR CANNING): Iron levels recently normalized, but still anemic, repeat today Assessment & Plan (04/02/2020 1:26 PM CDT): Start PPI History of amputation of toe 01/19/2020 Assessment & Plan (01/08/2021 3:50 PM CDT): Stable Assessment & Plan (10/02/2020 4:35 PM CDT): Stable Assessment & Plan (04/30/2020 1:00 PM PREPARATION SUPERVISOR CANNING): Stable Assessment & Plan (02/14/2020 5:15 PM CDT): Healing well Following with surgeon/wound clinic Assessment & Plan (01/19/2020 5:17 PM CDT): Has home health Following with vascular Hypertension associated with diabetes 12/13/2019 Assessment & Plan (11/29/2024 5:21 PM CDT): BP uncontrolled Continue hydralazine 50mg twice a day Increase coreg back to 6.25mg Monitor blood pressure at home, let me know if persistently high or if becomes low Assessment & Plan (10/24/2024 11:12 AM CDT): BP controlled Assessment & Plan (07/14/2024 2:32 PM PREPARATION SUPERVISOR CANNING): Continue carvedilol, hydralazine Assessment & Plan (07/14/2024 8:51 AM PREPARATION SUPERVISOR CANNING): BP controlled today off medication Daughter reports nephrology said could restart medication, is planning to restart coreg first and monitor blood pressure prior to restarting nifedipine/hydralazine Assessment & Plan (05/06/2024 7:48 AM PREPARATION SUPERVISOR CANNING): BP controlled Continue nifedipine, hold prior to [...] x1 with HD. Most recent admission at [facility] with initiation of hydralazine and [...] amlodipine Assessment & Plan (08/03/2023 4:02 PM PREPARATION SUPERVISOR CANNING): BP uncontrolled Start 5mg amlodipine Assessment & Plan (07/24/2023 1:49 PM PREPARATION SUPERVISOR CANNING): Blood pressure borderline today off medications Assessment & Plan (01/23/2023 9:18 AM CDT): Blood pressure borderline low today, asymptomatic Checking labs Advised to decrease amlodipine to 5mg and monitor blood pressure Assessment & Plan (10/10/2022 10:50 AM CDT): Continue coreg 6.25mg twice a day & 40mg valsartan Assessment & Plan (08/14/2022 10:43 AM PREPARATION SUPERVISOR CANNING): Blood pressure at goal, continue coreg 6.25mg twice a day Assessment & Plan (06/09/2022 3:32 PM PREPARATION SUPERVISOR CANNING): Blood pressure at goal, continue coreg 3.125mg [...] day Assessment & Plan (08/05/2021 10:35 AM PREPARATION SUPERVISOR CANNING): Blood pressure at goal Increase amlodipine to 10mg & d/c hydralazine per cardiology Assessment & Plan (05/28/2021 4:59 PM PREPARATION SUPERVISOR CANNING): Blood pressure above goal, but previously within [...] lisinopril Assessment & Plan (08/28/2020 12:12 PM PREPARATION SUPERVISOR CANNING): Blood pressure at goal Continue lisinopril Assessment & Plan (07/24/2020 2:05 PM PREPARATION SUPERVISOR CANNING): Blood pressure at goal Continue lisinopril Assessment & Plan (05/28/2020 1:50 PM PREPARATION SUPERVISOR CANNING): BP borderline Continue 10mg lisinopril Continue to monitor Assessment & Plan (04/30/2020 12:32 PM PREPARATION SUPERVISOR CANNING): BP borderline Continue 10mg lisinopril Continue to [...] use of insulin 08/30/2019 Assessment & Plan (11/29/2024 5:23 PM CDT): Resume previous insulin dosing now that she is back home Following with endocrine, upcoming appointment next month Assessment & Plan (10/24/2024 10:56 AM CDT): Following with endocrine Assessment & Plan (07/14/2024 2:31 PM PREPARATION SUPERVISOR CANNING): Controlled. Continue as per Endocrine and PCP Assessment & Plan (07/14/2024 8:50 AM PREPARATION SUPERVISOR CANNING): Following with endocrine, reviewed note Holding insulin [...] +SSI Assessment & Plan (07/24/2023 1:49 PM PREPARATION SUPERVISOR CANNING): Lab Results Component Value Date HGBA1C 8.1 [...] trulicity Assessment & Plan (08/14/2022 10:42 AM PREPARATION SUPERVISOR CANNING): Following with endocrine Continue lantus, 12 units humalog TIDAC & 1.5mg trulicity Assessment & Plan (06/09/2022 3:32 PM PREPARATION SUPERVISOR CANNING): Following with endocrine Home blood sugar at [...] for strict med oversight by family at [place] reviewed with daughter this admit. Assessment & [...] for strict med oversight by family at [place] reviewed with daughter this admit. Assessment & [...] and nephropathy. Med oversight by family at [place]. Assessment & Plan (09/14/2021 12:22 PM CDT): [...] as she had discussed this with outpatient desk director - repeat A1c - resume home statin, not currently on feliciano due to kidney function Assessment & Plan (08/05/2021 10:35 AM PREPARATION SUPERVISOR CANNING): Continue 15 units lantus twice a day Assessment & Plan (07/03/2021 7:24 AM PREPARATION SUPERVISOR CANNING): Fasting blood sugar significantly improved Risperidone changed Continue current meds Continue to monitor Assessment & Plan (06/18/2021 11:22 AM PREPARATION SUPERVISOR CANNING): Increase lantus to 60 units nightly, if blood sugar still above goal after 1 week split into 33 units twice a day Follow up with blood sugar via portal in 2 weeks Continue jardiance 25mg Continue trulicity 4.5mg weekly Assessment & Plan (05/28/2021 4:58 PM PREPARATION SUPERVISOR CANNING): Increase lantus to 55 units nightly Continue [...] weekly Assessment & Plan (08/28/2020 1:00 PM PREPARATION SUPERVISOR CANNING): DM Care Plan: Meds: Lantus - continue [...] recheck Assessment & Plan (07/24/2020 2:05 PM PREPARATION SUPERVISOR CANNING): Formulary change 2/2 insurance, switched to trulicity. Will increase to 1.5mg Assessment & Plan (05/28/2020 1:50 PM PREPARATION SUPERVISOR CANNING): Check a1c Barbara isn't checking blood sugar regularly, but when she is she has several >200 so I lean towards increasing if a1c>7 Assessment & Plan (04/30/2020 12:31 PM PREPARATION SUPERVISOR CANNING): Blood sugar improved on 40 units basaglar [...] materials from doctor or pharmacy Often 01/20/2024 [facility] Utilities Answer Date Recorded In the past 12 months has [employer] or water [employer] threatened to shut off services in your [...] answer 11/07/2024 How often do you attend [facility] or [facility]? Patient unable to answer 11/07/2024 Do [...] you have a drink containing alcohol? Never 12/26/2024 Q2: How many drinks containi ng alcohol do you have on a typical day when you are drinking? Patient does not drink Q3: How often do you have si x or more drinks on one occasion? Never 12/26/2024 Overall Financial Resource Strain (CARDIA) Answe r [...] in the past 12 m [facility], were you homeless or [...] on file Legal Sex Female 9:03 AM PREPARATION SUPERVISOR CANNING Gender Identity Female 02/08/2020 6:39 PM CDT Sexual Orientation Not on file Last Filed Vital Signs Vital Sign Reading Time Taken Comments Blood Pressure 135/67 12/26/2024 9:34 AM CDT Pulse 75 12/26/2024 9:34 AM CDT Temperature 37.2 C (99 F) 12/26/2024 9:34 AM CDT Respiratory Rate 18 11/29/2024 3:48 PM CDT Oxygen Saturation 98% 12/26/2024 9:34 AM CDT Inhaled Oxygen Concentration - - Weight 62.7 kg (138 lb 3.2 oz) 12/26/2024 9:34 A M CDT Height 157.5 cm (5' 2) 12/26/2024 9:34 AM CDT Body Mass Index 25.28 12/26/2024 9:34 AM CDT Results * POCT glucose (12/26/2024 9:39 AM CDT) [facility] Glucose Blood, POC 242 Normal Fasting 70 - 100, Random <200 mg/dL Blood 12/26/2024 9:39 AM CDT Smith Gibbs MD POINT OF CARE TEST ORDERABLE S Final Result * (ABNORMAL) eGFR (11/25/2024 12:58 PM CDT) [facility] eGFR 7(L) >=60 mL/min/1. 73 m2 NILSA RODRIGES Comment: Interpretive Data Reference Interval Normal >/= [...] was last reviewed 2021. Testing performed by: [address] [address] Blood 11/25/2024 12:5 8 PM CDT 11/25/2024 2:12 PM CDT us Notinfile Unknown LAB BLOOD ORDERABLES Final Res ult NILSA 3943 [facility] Department [place] [address] * (ABNORMAL) Differential, auto (11/25/2024 12:58 PM CDT) Neutrophil abs 6.51(H) 1.50 - 6.50 K/cumm NILSA Comment:Testing performed by : [address] [address] Imm gran abs 0.05 0.00 - 0.10 K/cumm NILSA Comment:Testing performed by : [address] [address] Lymphocyte abs 2.37 0.80 - 3.30 K/cumm NILSA Comment:Testing performed by : [address] [address] Monocyte abs 0.70 0.20 - 0.80 K/cumm NILSA Comment:Testing performed by : [address] [address] Eosinophil abs 0.16 0.00 - 0.50 K/cumm NILSA Comment:Testing performed by : [address] [address] Basophil abs 0.04 0.00 - 0.10 K/cumm NILSA Comment:Testing performed by : [address] [address] Neutrophil pct 66.3 % [facility] Comment: Interpretive Data Percent cell count reference ranges are not reported, since discordance with absolute values may lead to misinterpretation of CBC data. Current Interpretive Data was last revised on 2017. Testing performed by: [address] [address] Imm gran pct 0.5 % [facility] Comment: Interpretive Data Percent cell count reference ranges are not reported, since discordance with absolute values may lead to misinterpretation of CBC data. Current Interpretive Data was last revised on 2017. Testing performed by: [address] [address] Lymphocyte pct 24.1 % [facility] Comment: Interpretive Data Percent cell count reference ranges are not reported, since discordance with absolute values may lead to misinterpretation of CBC data. Current Interpretive Data was last revised on 2017. Testing performed by: [address] [address] Monocyte pct 7.1 % [facility] Comment: Interpretive Data Percent cell count reference ranges are not reported, since discordance with absolute values may lead to misinterpretation of CBC data. Current Interpretive Data was last revised on 2017. Testing performed by: [address] [address] Eosinophil pct 1.6 % [facility] Comment: Interpretive Data Percent cell count reference ranges are not reported, since discordance with absolute values may lead to misinterpretation of CBC data. Current Interpretive Data was last revised on 2017. Testing performed by: [address] [address] Basophil pct 0.4 % [facility] Comment: Interpretive Data Percent cell count reference ranges are not reported, since discordance with absolute values may lead to misinterpretation of CBC data. Current Interpretive Data was last revised on 2017. Testing performed by: [address] [address] Blood 11/25/2024 12:5 8 PM CDT 11/25/2024 2:12 PM CDT us Notinfile Unknown LAB BLOOD ORDERABLES Final Res ult NILSA 4500 [facility] Department [place] [address] * (ABNORMAL) CBC with auto differential (11/25/2024 12:58 PM CDT) WBC 9.83 3.80 - 9.90 K/cumm NILSA Comment:Testing performed by : [address] [address] Hgb 9.9(L) 11.9 - 15.5 g/dL NILSA Comment:Testing performed by : [address] [address] Hct 31.1(L) 35.6 - 45.5 % NILSA Comment:Testing performed by : [address] [address] Plt 351 150 - 400 K/cumm NILSA Comment:Testing performed by : [address] [address] MPV 10.0 9.1 - 12.3 fL NILSA Comment:Testing performed by : [address] [address] RBC 3.07(L) 3.90 - 5.20 M/cumm NILSA Comment:Testing performed by : [address] [address] MCV 101.3(H) 81.3 - 96.4 fL NILSA Comment:Testing performed by : [address] [address] MCH 32.2 27.1 - 33.3 pg NILSA RODRIGES Comment:Testing performed by : [address] [address] MCHC 31.8(L) 32.3 - 35.7 g/dL NILSA RODRIGES Comment:Testing performed by : [address] [address] RDW CV 15.7(H) 11.1 - 14.9 % NILSA RODRIGES Comment:Testing performed by : [address] [address] RDW SD 56.9(H) 35.7 - 48.1 fL NILSA RODRIGES Comment:Testing performed by : [address] [address] NRBC abs 0.02(H) 0.00 - 0.01 K/cumm NILSA RODRIGES Comment:Testing performed by : [address] [address] Blood 11/25/2024 12:5 8 PM CDT 11/25/2024 2:12 PM CDT us Notinfile Unknown LAB BLOOD ORDERABLES Final Res ult NILSA RODRIGES 7276 [facility] Department of Laboratories [place], [place] [id number] * (ABNORMAL) Comprehensive metabolic panel (11/25/2024 12:58 PM CDT) Sodium 133(L) 135 - 145 mmol/L NILSA RODRIGES Comment:Testing performed by : [address] [address] Potassium, pl 4.4 3.3 - 4.9 mmol/L NILSA RODRIGES Comment:Testing performed by : [address] [address] Chloride 94(L) 97 - 110 mmol/L NILSA RODRIGES Comment:Testing performed by : [address] [address] CO2 23 22 - 32 mmol/L NILSA RODRIGES Comment:Testing performed by : [address] [address] Anion gap 16(H) 2 - 15 mmol/L NILSA Comment:Testing performed by : [address] [address] BUN 53(H) 6 - 25 mg/dL NILSA Comment:Testing performed by : [address] [address] Creatinine 5.90(H) 0.60 - 1.10 mg/dL NILSA Comment:Testing performed by : [address] [address] Glucose 139 70 - 199 mg/dL [facility] [...] was last revised 2022. Testing performed by: [address] [address] Calcium 9.4 8.5 - 10.3 mg/dL NILSA Comment:Testing performed by : [address] [address] Bilirubin, total <0.2 0.1 - 1.2 mg/dL NILSA Comment:Testing performed by : [address] [address] Protein, pl 7.5 6.5 - 8.5 g/dL NILSA Comment:Testing performed by : [address] [address] Albumin 4.0 3.5 - 5.0 g/dL NILSA Comment:Testing performed by : [address] [address] Alk phos 108 40 - 130 Units/L NILSA Comment:Testing performed by : [address] [address] ALT 9 7 - 45 Units/L NILSA Comment:Testing performed by : [facility], [address] [place] [address]., [address] AST 11 10 - 45 Units/L NILSA Comment:Testing performed by : [facility], [address] [place] [address]., [address] Blood 11/25/2024 12:5 8 PM CDT 11/25/2024 2:12 PM CDT us Notinfile Unknown LAB BLOOD ORDERABLES Final Res ult Performing Organization Address City/State/[facility] Co de Phone Number NILSA 0886 [facility] Department [place] [address] * (ABNORMAL) eGFR (11/21/2024 4:15 AM CDT) eGFR 8(L) >=60 mL/min/1. 73 m2 NILSA Comment: Interpretive Data Reference Interval Normal >/= [...] was last reviewed 2021. Testing performed by: [facility], [address] [place] [address]., [address] Blood 11/21/2024 4:15 AM CDT 11/21/2024 7:54 AM CDT us Notinfile Unknown LAB BLOOD ORDERABLES Final Res ult NILSA 1080 [facility] Department [place] [address] * Differential, auto (11/21/2024 4:15 AM CDT) Neutrophil abs 6.24 1.50 - 6.50 K/cumm NILSA Comment:Testing performed by : [address] [address] Imm gran abs 0.06 0.00 - 0.10 K/cumm NILSA Comment:Testing performed by : [address] [address] Lymphocyte abs 2.12 0.80 - 3.30 K/cumm NILSA Comment:Testing performed by : [address] [address] Monocyte abs 0.70 0.20 - 0.80 K/cumm NILSA Comment:Testing performed by : [address] [address] Eosinophil abs 0.13 0.00 - 0.50 K/cumm NILSA Comment:Testing performed by : [address] [address] Basophil abs 0.04 0.00 - 0.10 K/cumm NILSA Comment:Testing performed by : [address] [address] Neutrophil pct 67.3 % [facility] Comment: Interpretive Data Percent cell count reference ranges are not reported, since discordance with absolute values may lead to misinterpretation of CBC data. Current Interpretive Data was last revised on 2017. Testing performed by: [address] [address] Imm gran pct 0.6 % NILSA Comment: Interpretive Data Percent cell count reference ranges are not reported, since discordance with absolute values may lead to misinterpretation of CBC data. Current Interpretive Data was last revised on 2017. Testing performed by: [address] [address] Lymphocyte pct 22.8 % [facility] Comment: Interpretive Data Percent cell count reference ranges are not reported, since discordance with absolute values may lead to misinterpretation of CBC data. Current Interpretive Data was last revised on 2017. Testing performed by: [address] [address] Monocyte pct 7.5 % NILSA Comment: Interpretive Data Percent cell count reference ranges are not reported, since discordance with absolute values may lead to misinterpretation of CBC data. Current Interpretive Data was last revised on 2017. Testing performed by: [address] [address] Eosinophil pct 1.4 % NILSA RODRIGES Comment: Interpretive Data Percent cell count reference ranges are not reported, since discordance with absolute values may lead to misinterpretation of CBC data. Current Interpretive Data was last revised on 2017. Testing performed by: [address] [address] Basophil pct 0.4 % NILSA RODRIGES Comment: Interpretive Data Percent cell count reference ranges are not reported, since discordance with absolute values may lead to misinterpretation of CBC data. Current Interpretive Data was last revised on 2017. Testing performed by: [address] [address] Blood 11/21/2024 4:15 AM CDT 11/21/2024 7:54 AM CDT us Notinfile Unknown LAB BLOOD ORDERABLES Final Res ult NILSA 2440 [facility] Department of Laboratories [place], [place] [id number] * (ABNORMAL) CBC with auto differential (11/21/2024 4:15 AM CDT) WBC 9.29 3.80 - 9.90 K/cumm NILSA RODRIGES Comment:Testing performed by : [address] [address] Hgb 8.9(L) 11.9 - 15.5 g/dL NILSA RODRIGES Comment:Testing performed by : [address] [address] Hct 28.2(L) 35.6 - 45.5 % NILSA Comment:Testing performed by : [address], [address] Plt 246 150 - 400 K/cumm NILSA Comment:Testing performed by : [address], [address] MPV 11.4 9.1 - 12.3 fL NILSA Comment:Testing performed by : [address], [address] RBC 2.72(L) 3.90 - 5.20 M/cumm NILSA Comment:Testing performed by : [address], [address] MCV 103.7(H) 81.3 - 96.4 fL NILSA Comment:Testing performed by : [address], [address] MCH 32.7 27.1 - 33.3 pg NILSA Comment:Testing performed by : [address], [address] MCHC 31.6(L) 32.3 - 35.7 g/dL NILSA Comment:Testing performed by : [address], [address] RDW CV 16.0(H) 11.1 - 14.9 % NILSA Comment:Testing performed by : [address], [address] RDW SD 59.4(H) 35.7 - 48.1 fL NILSA Comment:Testing performed by : [address], [address] NRBC abs 0.00 0.00 - 0.01 K/cumm NILSA Comment:Testing performed by : [address], [address] Blood 11/21/2024 4:15 AM CDT 11/21/2024 7:54 AM CDT us Notinfile Unknown LAB BLOOD ORDERABLES Final Res ult NILSA 4500 [facility] Department [place] [address] * (ABNORMAL) Comprehensive metabolic panel (11/21/2024 4:15 AM CDT) Sodium 135 135 - 145 mmol/L NILSA RODRIGES Comment:Testing performed by : [address] [address] Potassium, pl 4.6 3.3 - 4.9 mmol/L NILSA Comment:Testing performed by : [address] [address] Chloride 100 97 - 110 mmol/L NILSA Comment:Testing performed by : [address] [address] CO2 22 22 - 32 mmol/L NILSA Comment:Testing performed by : [address] [address] Anion gap 13 2 - 15 mmol/L NILSA Comment:Testing performed by : [address] [address] BUN 62(H) 6 - 25 mg/dL NILSA Comment:Testing performed by : [address] [address] Creatinine 5.57(H) 0.60 - 1.10 mg/dL NILSA Comment:Testing performed by : [address] [address] Glucose 148 70 - 199 mg/dL NILSA Comment: Interpretive [...] was last revised 2022. Testing performed by: [address] [address] Calcium 9.5 8.5 - 10.3 mg/dL NILSA Comment:Testing performed by : [address] [address] Bilirubin, total <0.2 0.1 - 1.2 mg/dL NILSA Comment:Testing performed by : [address], [place]., [address] Protein, pl 6.7 6.5 - 8.5 g/dL NILSA Comment:Testing performed by : [address] [address] Albumin 3.5 3.5 - 5.0 g/dL NILSA Comment:Testing performed by : [address] [address] Alk phos 120 40 - 130 Units/L NILSA Comment:Testing performed by : [address], [place]., [address] ALT 15 7 - 45 Units/L NILSA Comment:Testing performed by : [address] [address] AST 16 10 - 45 Units/L NILSA Comment:Testing performed by : [address] [address] Blood 11/21/2024 4:15 AM CDT 11/21/2024 7:54 AM CDT us Notinfile Unknown LAB BLOOD ORDERABLES Final Res ult NILSA 7525 [facility] Department [place] [address] * Hepatitis B core antibody, total Blood (11/15/2024 5:15 AM CDT) Hep B core IgG/IgM Nonreactive Nonreactive NILSA RODRIGES Comment:Testing performed by : [facility], [address] [facility] [place]., [address] Blood 11/15/2024 5:15 AM CDT 11/15/2024 11:24 AM CDT us Notinfile Unknown LAB MICROBIOLOGY - GENERAL ORD ERABLES Final Result [facility] [address] [address] * Hepatitis B Surface Antigen Blood (11/15/2024 5:15 AM CDT) HepBsAg Nonreactive Nonreactive [facility] Blood 11/15/2024 5:15 AM CDT 11/15/2024 12:58 PM CDT Notinfile Unknown LAB MICROBIOLOGY - GENERAL ORD ERABLES Final Result Performing Organization Address [facility] Co de Phone Number CARLOS ENRIQUE[address] [address] * (ABNORMAL) eGFR (11/14/2024 1:00 PM CDT) eGFR 8(L) >=60 mL/min/1. 73 m2 [facility] Comment: Interpretive Data Reference Interval Normal >/= [...] was last reviewed 2021. Testing performed by: [facility], [address] [place] [address]., [address] Blood 11/14/2024 1:00 PM CDT 11/14/2024 5:20 PM CDT us Notinfile Unknown LAB BLOOD ORDERABLES Final Res ult NILSA 2310 [facility] Department [place] [address] * Differential, auto (11/14/2024 1:00 PM CDT) Neutrophil abs 6.30 1.50 - 6.50 K/cumm NILSA Comment:Testing performed by : [address] [address] Imm gran abs 0.05 0.00 - 0.10 K/cumm NILSA Comment:Testing performed by : [address] [address] Lymphocyte abs 2.83 0.80 - 3.30 K/cumm NILSA Comment:Testing performed by : [address] [address] Monocyte abs 0.71 0.20 - 0.80 K/cumm NILSA Comment:Testing performed by : [address] [address] Eosinophil abs 0.15 0.00 - 0.50 K/cumm NILSA Comment:Testing performed by : [address] [address] Basophil abs 0.04 0.00 - 0.10 K/cumm NILSA Comment:Testing performed by : [address] [address] Neutrophil pct 62.5 % NILSA Comment: Interpretive Data Percent cell count reference ranges are not reported, since discordance with absolute values may lead to misinterpretation of CBC data. Current Interpretive Data was last revised on 2017. Testing performed by: [address] [address] Imm gran pct 0.5 % NILSA Comment: Interpretive Data Percent cell count reference ranges are not reported, since discordance with absolute values may lead to misinterpretation of CBC data. Current Interpretive Data was last revised on 2017. Testing performed by: [address] [place]., [address] Lymphocyte pct 28.1 % NILSA Comment: Interpretive Data Percent cell count reference ranges are not reported, since discordance with absolute values may lead to misinterpretation of CBC data. Current Interpretive Data was last revised on 2017. Testing performed by: [address] [address] Monocyte pct 7.0 % NILSA Comment: Interpretive Data Percent cell count reference ranges are not reported, since discordance with absolute values may lead to misinterpretation of CBC data. Current Interpretive Data was last revised on 2017. Testing performed by: [address] [address] Eosinophil pct 1.5 % NILSA Comment: Interpretive Data Percent cell count reference ranges are not reported, since discordance with absolute values may lead to misinterpretation of CBC data. Current Interpretive Data was last revised on 2017. Testing performed by: [address] [address] Basophil pct 0.4 % NILSA Comment: Interpretive Data Percent cell count reference ranges are not reported, since discordance with absolute values may lead to misinterpretation of CBC data. Current Interpretive Data was last revised on 2017. Testing performed by: [address] [address] Blood 11/14/2024 1:00 PM CDT 11/14/2024 5:20 PM CDT us Notinfile Unknown LAB BLOOD ORDERABLES Final Res ult [facility] [address] [facility] Department [place] [address] * (ABNORMAL) CBC with auto differential (11/14/2024 1:00 PM CDT) WBC 10.08(H) 3.80 - 9.90 K/cumm NILSA Comment:Testing performed by : [address] [address] Hgb 9.4(L) 11.9 - 15.5 g/dL NILSA Comment:Testing performed by : [address] [address] Hct 30.5(L) 35.6 - 45.5 % NILSA Comment:Testing performed by : [address] [address] Plt 297 150 - 400 K/cumm NILSA Comment:Testing performed by : [address] [address] MPV 10.4 9.1 - 12.3 fL NILSA Comment:Testing performed by : [address] [address] RBC 2.84(L) 3.90 - 5.20 M/cumm NILSA Comment:Testing performed by : [address] [address] MCV 107.4(H) 81.3 - 96.4 fL NILSA Comment:Testing performed by : [address] [address] MCH 33.1 27.1 - 33.3 pg NILSA Comment:Testing performed by : [address] [address] MCHC 30.8(L) 32.3 - 35.7 g/dL NILSA Comment:Testing performed by : [address] [address] RDW CV 16.1(H) 11.1 - 14.9 % NILSA Comment:Testing performed by : [address] [address] RDW SD 58.9(H) 35.7 - 48.1 fL NILSA Comment:Testing performed by : [address] [address] NRBC abs 0.14(H) 0.00 - 0.01 K/cumm NILSA Comment:Testing performed by : [address] [address] Blood 11/14/2024 1:00 PM CDT 11/14/2024 5:20 PM CDT us Notinfile Unknown LAB BLOOD ORDERABLES Final Res ult Performing Organization Address [facility] Co de Phone Number NILSA [address] [address] * Hepatitis B surface antibody (immune status) Blood (11/14/2024 1:00 PM CDT) Pathologist [facility] HBsAb (immune status) Reactive NILSA Comment: Interpretive Data Nonreactive: This result is [...] revised on 19. HBsAb (immune status) index 804.0 mIUnits/m L NILSA Blood 11/14/2024 1:00 PM CDT 11/14/2024 6:22 PM CDT us Notinfile Unknown LAB MICROBIOLOGY - GENERAL ORD ERABLES Final Result Performing Organization Address [facility] de Phone Number [place]OS [place] [id number] [place] [address] * (ABNORMAL) Comprehensive metabolic panel (11/14/2024 1:00 PM CDT) Pathologist [facility] Sodium 138 135 - 145 mmol/L NILSA Comment:Testing performed by : [address] [address] Potassium, pl 3.9 3.3 - 4.9 mmol/L NILSA Comment:Testing performed by : [address] [address] Chloride 101 97 - 110 mmol/L NILSA Comment:Testing performed by : [address] [address] CO2 22 22 - 32 mmol/L NILSA Comment:Testing performed by : [address] [place]., [address] Anion gap 15 2 - 15 mmol/L NILSA Comment:Testing performed by : [address] [address] BUN 52(H) 6 - 25 mg/dL NILSA Comment:Testing performed by : [address] [address] Creatinine 5.47(H) 0.60 - 1.10 mg/dL NILSA Comment:Testing performed by : [address] [address] Glucose 136 70 - 199 mg/dL NILSA Comment: Interpretive [...] was last revised 2022. Testing performed by: [address] [address] Calcium 9.8 8.5 - 10.3 mg/dL NILSA Comment:Testing performed by : [address] [address] Bilirubin, total 0.2 0.1 - 1.2 mg/dL NILSA Comment:Testing performed by : [address] [address] Protein, pl 7.5 6.5 - 8.5 g/dL NILSA Comment:Testing performed by : [address] [address] Albumin 3.9 3.5 - 5.0 g/dL NILSA Comment:Testing performed by : [address] [address] Alk phos 128 40 - 130 Units/L NILSA Comment:Testing performed by : [address] [address] ALT 24 7 - 45 Units/L NILSA RODRIGES Comment:Testing performed by : [address] [address] AST 18 10 - 45 Units/L NILSA Comment:Testing performed by : [address] [address] Blood 11/14/2024 1:00 PM CDT 11/14/2024 5:20 PM CDT us Notinfile Unknown LAB BLOOD ORDERABLES Final Res ult NILSA 2098 [facility] Department [place] [address] * (ABNORMAL) eGFR (11/13/2024 5:35 AM CDT) eGFR 11(L) >=60 mL/min/1. 73 m2 NILSA RODRIGES Comment: Interpretive Data Reference Interval Normal >/= [...] was last reviewed 2021. Testing performed by: [address] [address] Blood 11/13/2024 5:35 AM CDT 11/13/2024 8:55 AM CDT us Notinfile Unknown LAB BLOOD ORDERABLES Final Res ult NILSA 4500 [facility] Department [place] [address] * (ABNORMAL) CBC with auto differential (11/13/2024 5:35 AM CDT) [facility] Signature WBC 9.10 3.80 - 9.90 K/cumm NILSA Comment:Testing performed by : [address] [address] Hgb 8.9(L) 11.9 - 15.5 g/dL NILSA Comment:Testing performed by : [address] [address] Hct 28.4(L) 35.6 - 45.5 % NILSA Comment:Testing performed by : [address] [address] Plt 270 150 - 400 K/cumm NILSA Comment:Testing performed by : [address] [address] MPV 10.3 9.1 - 12.3 fL NILSA Comment:Testing performed by : [address] [address] RBC 2.70(L) 3.90 - 5.20 M/cumm NILSA Comment:Testing performed by : [address] [address] MCV 105.2(H) 81.3 - 96.4 fL NILSA Comment:Testing performed by : [address] [address] MCH 33.0 27.1 - 33.3 pg NILSA Comment:Testing performed by : [address] [address] MCHC 31.3(L) 32.3 - 35.7 g/dL NILSA Comment:Testing performed by : [address] [address] RDW CV 15.9(H) 11.1 - 14.9 % NILSA Comment:Testing performed by : [address] [address] RDW SD 57.1(H) 35.7 - 48.1 fL NILSA Comment:Testing performed by : [address] [address] NRBC abs 0.33(H) 0.00 - 0.01 K/cumm NILSA Comment:Testing performed by : [address] [address] Blood 11/13/2024 5:35 AM CDT 11/13/2024 8:55 AM CDT us Notinfile Unknown LAB BLOOD ORDERABLES Final Res ult NILSA RODRIGES [facility] Department [place] [address] * (ABNORMAL) Manual Differential (11/13/2024 5:35 AM CDT) Differential Manual NILSA Comment:Testing performed by : [address] [address] Cells Counted 100 NILSA Comment:Testing performed by : [address] [address] Neutrophil abs 5.46 1.50 - 6.50 K/cumm NILSA Comment:Testing performed by : [address] [address] Lymphocyte abs 2.73 0.80 - 3.30 K/cumm NILSA Comment:Testing performed by : [address] [address] Monocyte abs 0.82(H) 0.20 - 0.80 K/cumm NILSA Comment:Testing performed by : [address] [address] Eosinophil abs 0.09 0.00 - 0.50 K/cumm NILSA Comment:Testing performed by : [address] [address] Neutrophil pct 60.0 % NILSA Comment: Interpretive Data Percent cell count reference ranges are not reported, since discordance with absolute values may lead to misinterpretation of CBC data. Current Interpretive Data was last revised on 2017. Testing performed by: [address] [address] Lymphocyte pct 30.0 % [facility] Comment: Interpretive Data Percent cell count reference ranges are not reported, since discordance with absolute values may lead to misinterpretation of CBC data. Current Interpretive Data was last revised on 2017. Testing performed by: [address] [address] Monocyte pct 9.0 % [facility] Comment: Interpretive Data Percent cell count reference ranges are not reported, since discordance with absolute values may lead to misinterpretation of CBC data. Current Interpretive Data was last revised on 2017. Testing performed by: [address] [address] Eosinophil pct 1.0 % [facility] Comment: Interpretive Data Percent cell count reference ranges are not reported, since discordance with absolute values may lead to misinterpretation of CBC data. Current Interpretive Data was last revised on 2017. Testing performed by: [address] [address] RBC morphology Present(A) NILSA Comment:Testing performed by : [address] [address] Anisocytosis Moderate(A ) NILSA Comment:Testing performed by : [address] [address] Macrocytes 8-15/HPF(A ) NILSA Comment:Testing performed by : [address] [address] Schistocytes 1-2/HPF(A) NILSA Comment:Testing performed by : [address] [address] Platelet clumping Present(A) NILSA Comment:Testing performed by : [address] [address] Blood 11/13/2024 5:35 AM CDT 11/13/2024 8:55 AM CDT us Notinfile Unknown LAB BLOOD ORDERABLES Final Res ult NILSA [address] [facility] Department [place] [address] * (ABNORMAL) Comprehensive metabolic panel (11/13/2024 5:35 AM CDT) Sodium 139 135 - 145 mmol/L NILSA Comment:Testing performed by : [address] [address] Potassium, pl 4.2 3.3 - 4.9 mmol/L NILSA Comment:Testing performed by : [address] [address] Chloride 102 97 - 110 mmol/L NILSA Comment:Testing performed by : [address] [address] CO2 25 22 - 32 mmol/L NILSA Comment:Testing performed by : [address] [address] Anion gap 12 2 - 15 mmol/L NILSA Comment:Testing performed by : [address] [address] BUN 30(H) 6 - 25 mg/dL NILSA Comment:Testing performed by : [address] [address] Creatinine 4.07(H) 0.60 - 1.10 mg/dL NILSA Comment:Testing performed by : [address] [address] Glucose 144 70 - 199 mg/dL NILSA Comment: Interpretive [...] was last revised 2022. Testing performed by: [address] [place]., [address] Calcium 9.4 8.5 - 10.3 mg/dL NILSA Comment:Testing performed by : [address] [address] Bilirubin, total 0.2 0.1 - 1.2 mg/dL NILSA Comment:Testing performed by : [address] [address] Protein, pl 7.0 6.5 - 8.5 g/dL NILSA Comment:Testing performed by : [address] [address] Albumin 3.7 3.5 - 5.0 g/dL NILSA Comment:Testing performed by : [address] [address] Alk phos 127 40 - 130 Units/L NILSA Comment:Testing performed by : [address] [address] ALT 21 7 - 45 Units/L NILSA Comment:Testing performed by : [address] [address] AST 22 10 - 45 Units/L NILSA Comment:Testing performed by : [address] [address] Blood 11/13/2024 5:35 AM CDT 11/13/2024 8:55 AM CDT us Notinfile Unknown LAB BLOOD ORDERABLES Final Res ult [facility] [facility] Department [place] [address] * POCT glucose (11/05/2024 11:49 AM CDT) [facility] Signature Glucose, POC 187 70 - 199 mg/dL Glucose comment 1 RN/MD Notified NILSA Blood 11/05/2024 11:4 9 AM CDT 11/05/2024 11:49 AM CDT us Juan J Heller MD LAB POCT ORDERABLES - DEVICE Final Result Performing Organization Address City/[facility] Co de Phone Number NILSA [address] [place] [address] * (ABNORMAL) eGFR (11/05/2024 6:52 AM CDT) [facility] eGFR 8(L) >=60 mL/min/1. 73 m2 Comment: [...] 7:12 AM CDT us Brad Sebastien Smallwood NP LAB BLOOD ORDERABLES Fin al Result Performing Organization Address City/[facility] Co de Phone Number NILSA [address] [place] [address] * Differential, auto (11/05/2024 6:52 AM CDT) [facility] Neutrophil abs 5.74 1.50 - 6.50 K/cumm [...] 7:12 AM CDT us Brad Sebastien Smallwood NP LAB BLOOD ORDERABLES Fin al Result NILSA [address] [facility] Department of Laboratories [place], [place] [id number] * (ABNORMAL) CBC with auto differential (11/05/2024 [...] AM CDT 11/05/2024 7:12 AM CDT Brad Sebastien Smallwood FRUIT [employer] LAB BLOOD ORDERABLES Fin al Result [facility] [address] [facility] Department [place] [address] * (ABNORMAL) Basic metabolic panel (11/05/2024 6:52 AM CDT) Sodium 135 135 - 145 [...] 7:12 AM CDT us Brad Sebastien Smallwood NP LAB BLOOD ORDERABLES Fin al Result Performing Organization Address [facility] Co de Phone Number [address] [place] [address] * (ABNORMAL) POCT glucose (11/04/2024 9:22 PM CDT) Glucose, POC 223(H) 70 - 199 mg/dL Blood 11/04/2024 9:22 PM CDT 11/04/2024 9:22 PM CDT Juan J Heller MD LAB POCT ORDERABLES - DEVICE Final Result Performing Organization Address [facility] Co de Phone Number [address] [place] [address] * (ABNORMAL) POCT glucose (11/04/2024 4:33 PM CDT) Glucose, POC 240(H) 70 - 199 mg/dL Glucose comment 1 Use This Result [facility] Glucose comment 2 RN/MD Notified [facility] Blood 11/04/2024 4:33 PM CDT 11/04/2024 4:33 PM CDT Juan J Heller MD LAB POCT ORDERABLES - DEVICE Final Result Performing Organization Address [facility]/ZIP Co de Phone Number CERNER [facility] [address] [place] [address] * POCT glucose (11/04/2024 11:12 AM CDT) Glucose, POC 177 70 - 199 mg/dL Glucose comment 1 RN/MD Notified [facility] Blood 11/04/2024 11:1 2 AM CDT 11/04/2024 11:12 AM CDT Juan J Heller MD LAB POCT ORDERABLES - DEVICE Final Result Performing Organization Address City/[facility] Co de Phone Number [address] [address] * POCT glucose (11/04/2024 9:37 AM CDT) [facility] Signature Glucose, POC 138 70 - 199 mg/dL Blood 11/04/2024 9:37 AM CDT 11/04/2024 9:37 AM CDT Juan J Heller MD LAB POCT ORDERABLES - DEVICE Final Result Performing Organization Address City/[facility] Co de Phone Number [address] [address] * POCT glucose (11/04/2024 6:09 AM CDT) Glucose, POC 190 70 - 199 mg/dL Blood 11/04/2024 6:09 AM CDT 11/04/2024 6:09 AM CDT Juan J Heller MD LAB POCT ORDERABLES - DEVICE Final Result Performing Organization Address City/[facility] Co de Phone Number [address] [place] [address] * (ABNORMAL) eGFR (11/04/2024 4:16 AM CDT) [facility] eGFR 6(L) >=60 mL/min/1. 73 m2 Comment: [...] 4:35 AM CDT us Brad Sebastien Smallwood FR[employer] LAB BLOOD ORDERABLES Fin al Result [facility] [address] [facility] Department [place] [address] * Differential, auto (11/04/2024 4:16 AM CDT) [...] 4:35 AM CDT us Brad Sebastien Smallwood FR[employer] LAB BLOOD ORDERABLES Fin al Result [facility] [address] [facility] Department of Laboratories [place], [place] [id number] * (ABNORMAL) CBC with auto differential (11/04/2024 [...] NP LAB BLOOD ORDERABLES Fin al Result [facility] [address] [facility] Department [place] [address] * (ABNORMAL) Basic metabolic panel (11/04/2024 4:16 [...] ORDERABLES Fin al Result Performing Organization Address [facility] Co de Phone Number [address] [place] [address] * (ABNORMAL) POCT glucose (11/03/2024 8:27 PM CDT) Glucose, POC 222(H) 70 - 199 mg/dL Glucose comment 1 RN/MD Notified [facility] Blood 11/03/2024 8:27 PM CDT 11/03/2024 8:27 PM CDT Juan J Heller MD LAB POCT ORDERABLES - DEVICE Final Result Performing Organization Address [facility] Co de Phone Number [address] [place] [address] * (ABNORMAL) POCT glucose (11/03/2024 3:45 PM CDT) Glucose, POC 217(H) 70 - 199 mg/dL Glucose comment 1 Use This Result [facility] Glucose comment 2 RN/MD Notified [facility] Blood 11/03/2024 3:45 PM CDT 11/03/2024 3:45 PM CDT Juan J Heller MD LAB POCT ORDERABLES - DEVICE Final Result Performing Organization Address [facility] Co de Phone Number [address] [place] [address] * MRI Brain WO Contrast (11/03/2024 1:17 [...] Hyperostosis frontalis interna. ORBITS: No acute abnormality. [place] ocular lenses replaced bilaterally. PARANASAL SINUSES AND MASTOIDS: Tiny focus of opacifying material in the dependent left sphenoid sinuses. Slight scattered fluid about the sekda-ednocei-[id number]-left mastoid air cells. Scattered fluid OTHER: No other significant finding. IMPRESSION: Within the limitations of patient motion artifact, no acute intracranial process with chronic findings as above. THIS IS AN ELECTRONICALLY VERIFIED FINAL REPORT 11/03/2024 1:26 PM - Electronically signed by Redd Hendrickson M.D. CHANDA T: Report ID: [id number] Reading Location: [id number] Procedure Note Redd Hendrickson MD - 11/03/2024 EXAM DESCRIPTION: MRI BRAIN WO CONTRAST REASON FOR STUDY: Altered mental status of unspecified duration. Noprovision of focal neurologic deficits. No provided history of trauma or inciting and/or aggravating events. No provided past medical or surgical history. TECHNIQUE: Multiplanar imaging includes non-contrasted T1, T2, FLAIR, and diffusion with ADC map sequences. Additional sequence(s) sensitive DSI MET-TECH. Images stored on PACS. Patient motion artifact [...] Hyperostosis frontalis interna. ORBITS: No acute abnormality. [place] ocular lenses replaced bilaterally. PARANASAL SINUSES AND MASTOIDS: Tiny focus of opacifying material in the dependent left sphenoid sinuses. Slight scattered fluid about the cixph-jrctsgt-glmq-left mastoid air cells. Scattered fluid OTHER: No other significant finding. IMPRESSION: Within the limitations of patient motion artifact, no acute intracranial process with chronic findings as above. THIS IS AN ELECTRONICALLY VERIFIED FINAL REPORT 11/03/2024 1:26 PM - Electronically signed by Redd Hendrickson M.D. CHANDA T: Report ID: [id number] Reading Location: [id number] Juan J Heller MD IMG MRI PROCEDURES Final Result * (ABNORMAL) POCT glucose (11/03/2024 11:14 AM CDT) [facility] Glucose, POC 259(H) 70 - 199 mg/dL Glucose comment 1 Use This Result [facility] Glucose comment 2 RN/MD Notified [facility] Blood 11/03/2024 11:1 4 AM CDT 11/03/2024 11:14 AM CDT Juan J Heller MD LAB POCT ORDERABLES - DEVICE Final Result Performing Organization Address [facility] Co de Phone Number [address] [place] [address] * POCT glucose (11/03/2024 7:17 AM CDT) [facility] Glucose, POC 139 70 - 199 mg/dL Glucose comment 1 Use This Result [facility] Glucose comment 2 RN/MD Notified [facility] Blood 11/03/2024 7:17 AM CDT 11/03/2024 7:17 AM CDT Juan J Heller MD LAB POCT ORDERABLES - DEVICE Final Result Performing Organization Address [facility] Co de Phone Number [address] [place] [address] * (ABNORMAL) eGFR (11/03/2024 2:33 AM CDT) [facility] eGFR 10(L) >=60 mL/min/1. 73 m2 Comment: [...] CDT 11/03/2024 3:06 AM CDT us Brad Sebastien Smallwood NP LAB BLOOD ORDERABLES Fin al Result [place] [address] [facility] Department [place] [address] * Differential, auto (11/03/2024 2:33 AM CDT) Neutrophil abs 5.20 1.50 - 6.50 K/cumm [...] 3:03 AM CDT us Brad Sebastien Smallwood FR[employer] LAB BLOOD ORDERABLES Fin al Result [facility] [address] [facility] Department [place] [address] * (ABNORMAL) CBC with auto differential (11/03/2024 2:33 AM CDT) WBC 8.54 3.80 - 9.90 K/cumm Hgb [...] 2:33 AM CDT 11/03/2024 3:03 AM CDT [facility] LAB BLOOD ORDERABLES Fin al Result Performing Organization Address [facility] Co de Phone Number [facility] [address] [address] * (ABNORMAL) Basic metabolic panel (11/03/2024 2:33 AM CDT) Sodium 135 135 - 145 [...] 2:33 AM CDT 11/03/2024 3:03 AM CDT [facility] FRUIT [employer]ER LAB BLOOD ORDERABLES Fin al Result Performing Organization Address [facility] Co de Phone Number [address] [place] [address] * POCT glucose (11/02/2024 9:40 PM CDT) Glucose, POC 157 70 - 199 mg/dL Glucose comment 1 RN/MD Notified NILSA Blood 11/02/2024 9:40 PM CDT 11/02/2024 9:40 PM CDT Juan J Heller MD LAB POCT ORDERABLES - DEVICE Final Result Performing Organization Address [facility] Co de Phone Number NILSA [address] [place] [address] * Ammonia (11/02/2024 6:56 PM CDT) Ammonia 24 <=50 mcmol/L Comment: Please note on 2023 the unit of measure changed from mcg/dL to mcmol/L. Current Interpretive Data was last revised on 2023. Blood 11/02/2024 6:56 PM CDT 11/02/2024 7:04 PM CDT Juan J Heller MD LAB BLOOD ORDERABLE S Final Result Performing Organization Address [facility] de Phone Number [address] [address] * CT Head WO Contrast (11/02/2024 6:31 [...] Salvador Bronson M.D. KT T: Report ID: [id number] Reading Location: [id number] Procedure Note Salvador Bronson MD - 11/02/2024 [...] Salvador Bronson M.D. KT T: Report ID: [id number] Reading Location: [id number] Juan J Heller MD [facility] PROCEDURES F inal Result * (ABNORMAL) POC Blood Gas and Chemistries, Arterial - (11/02/2024 6:17 PM CDT) pH, art POC 7.45 7.35 - 7.45 pCO2, art POC 40 35 - 45 mmHg [facility] pO2, art POC 95 83 - 108 [...] - DEVICE Final Result Performing Organization Address [facility] Co de Phone Number [address] [place] [address] * POCT glucose (11/02/2024 5:13 PM CDT) Glucose, POC 150 70 - 199 mg/dL Glucose comment 1 RN/ Notified [facility] Blood 11/02/2024 5:13 PM CDT 11/02/2024 5:13 PM CDT Juan J Heller MD LAB POCT ORDERABLES - DEVICE Final Result Performing Organization Address City/[facility]/ZIP Co de Phone Number [address] [place] [address] * POCT glucose (11/02/2024 12:32 PM CDT) Glucose, POC 173 70 - 199 mg/dL Glucose comment 1 RN/MD Notified [facility] Blood 11/02/2024 12:3 2 PM CDT 11/02/2024 12:32 PM CDT Juan J Heller MD LAB POCT ORDERABLES - DEVICE Final Result Performing Organization Address City/[facility]/ZIP Co de Phone Number [address] [address] * POCT glucose (11/02/2024 7:50 AM CDT) Glucose, POC 184 70 - 199 mg/dL Glucose comment 1 RN/MD Notified [facility] Blood 11/02/2024 7:50 AM CDT 11/02/2024 7:50 AM CDT Juan J Heller MD LAB POCT ORDERABLES - DEVICE Final Result Performing Organization Address [facility] de Phone Number [address] [address] * Hepatitis B surface antibody (immune status) Blood (11/02/2024 7:14 AM CDT) HBsAb (immune status) Reactive Comment: [...] HBsAb (immune status) index 628.0 mIUnits/m L [facility] Blood 11/02/2024 7:14 AM CDT 11/02/2024 7:32 AM CDT Rohan Funes MD LAB MICROBIOLOGY - GENERAL ORDERABLES Final Result Performing Organization Address City/[facility] Co de Phone Number [address] [address] * Hepatitis B Surface Antigen Blood (11/02/2024 7:14 AM CDT) HepBsAg Nonreactive Nonreactive Blood 11/02/2024 7:14 AM CDT 11/02/2024 7:32 AM CDT Rohan Funes MD LAB MICROBIOLOGY - GENERAL ORDERABLES Final Result Performing Organization Address [facility] Co de Phone Number NILSA [address] [place] [address] * (ABNORMAL) eGFR (11/02/2024 3:48 AM CDT) eGFR 8(L) >=60 mL/min/1. 73 [...] CDT 11/02/2024 4:01 AM CDT us Brad Smallwood NP LAB BLOOD ORDERABLES Fin al Result Performing Organization Address City/[facility]/ZIP Co de Phone Number NILSA [address] [place] [address] * Differential, auto (11/02/2024 3:48 AM CDT) [...] 4:01 AM CDT us Brad Sebastien Smallwood FR[employer] LAB BLOOD ORDERABLES Fin al Result Performing Organization Address [facility] de Phone Number [address] [address] * (ABNORMAL) CBC with auto differential (11/02/2024 3:48 AM CDT) Pathologist [facility] WBC 8.39 3.80 - 9.90 K/cumm Hgb [...] AM CDT 11/02/2024 4:01 AM CDT Brad Tabermargaret Smallwood FRUIT W[employer]ER LAB BLOOD ORDERABLES Fin al Result Performing Organization Address [facility] de Phone Number [address] [address] * Folate (11/02/2024 3:48 AM CDT) [facility] Folic acid 7.0 >=5.0 ng/mL Blood 11/02/2024 3:48 AM CDT 11/02/2024 4:01 AM CDT Brad Tabermargaret Smallwood FRUIT W[employer]ER LAB BLOOD ORDERABLES Fin al Result NILSA [address] Department [place] [address] * (ABNORMAL) Basic metabolic panel (11/02/2024 3:48 AM CDT) Sodium 135 135 - 145 [...] 4:01 AM CDT us Brad Sebastien Smallwood FR[employer] LAB BLOOD ORDERABLES Fin al Result [address] [place] [address] * Lactate (11/01/2024 10:05 PM CDT) Pathologist [facility] Lactate 1.4 0.7 - 2.0 mmol/L Blood 11/01/2024 10:0 5 PM CDT 11/01/2024 10:15 PM CDT Brad Tabernero Rufin FRUIT W[employer]ER LAB BLOOD ORDERABLES Fin al Result Performing Organization Address City/[facility]/ZIP Co de Phone Number [address] [place] [address] * (ABNORMAL) Erythrocyte sedimentation rate (11/01/2024 10:05 PM CDT) Erythrocyte sedimentation rate 43(H) 1 - 30 mm/hr Blood 11/01/2024 10:0 5 PM CDT 11/01/2024 10:15 PM CDT Brad Tabernero Rufin FRUIT W[employer]ER LAB BLOOD ORDERABLES Fin al Result Performing Organization Address [facility] Co de Phone Number [address] [address] * CRP (acute phase) (11/01/2024 10:05 PM CDT) CRP 3.6 <=10.0 mg/L Blood 11/01/2024 10:0 5 PM CDT 11/01/2024 10:15 PM CDT Brad Tabernero Rufin FRUIT [employer] LAB BLOOD ORDERABLES Fin al Result Performing Organization Address [facility] Co de Phone Number [address] [place] [address] * Phosphorus (11/01/2024 10:05 PM CDT) Phosphorus, pl 4.3 2.3 - 4.5 mg/dL Blood 11/01/2024 10:0 5 PM CDT 11/01/2024 10:15 PM CDT Brad Tabernero Rufin FRUIT [employer]ER LAB BLOOD ORDERABLES Fin al Result Performing Organization Address City/[facility]/ZIP Co de Phone Number [address] [place] [address] * Magnesium (11/01/2024 10:05 PM CDT) Magnesium 1.5 1.4 - 2.5 mg/dL Blood 11/01/2024 10:0 5 PM CDT 11/01/2024 10:15 PM CDT [facility] LAB BLOOD ORDERABLES Fin al Result Performing Organization Address [facility] de Phone Number [address] [address] * (ABNORMAL) Hemoglobin A1c (11/01/2024 10:05 PM CDT) Pathologist [facility] Hgb A1C 7.1(H) 4.0 - 5.6 % Estimated Average Glucose 157 mg/dL [facility] Comment: The ADA recommends reporting an estimated Average Glucose (eAG) with all Hemoglobin A1c results using the equation derived from a study of 507 normal and diabetic adults. Minority populations were underrepresented and children were not included. (Diabetes Care 31:0011-9130, 2008). The eAG is not equivalent to a fasting glucose. Blood 11/01/2024 10:0 5 PM CDT 11/01/2024 10:15 PM CDT [facility] LAB BLOOD ORDERABLES Fin al Result Performing Organization Address [facility] de Phone Number [address] [address] * Vitamin B12 (11/01/2024 10:05 PM CDT) Pathologist [facility] Vitamin B12 584 230 - 1,250 pg/mL Blood 11/01/2024 10:0 5 PM CDT 11/01/2024 10:15 PM CDT [facility] LAB BLOOD ORDERABLES Fin al Result Performing Organization Address [facility] de Phone Number [address] Department [place] [address] * (ABNORMAL) Lipid panel (11/01/2024 10:05 PM CDT) Cholesterol 98 30 - 199 mg/dL Comment: [...] revised on 2018. Triglycerides 147 <=149 mg/dL NILSA Comment: Interpretive [...] on 2024. Non-HDL Cholesterol 60 mg/dL NILSA RODRIGES Comment: Interpretive Data Ages [...] revised on 2018. Chol/HDL ratio 3 NILSA RODRIGES Blood 11/01/2024 10:0 5 PM CDT 11/01/2024 10:15 PM CDT us Brad Sebastien Smallwood NP LAB BLOOD ORDERABLES Fin al Result NILSA RODRIGES [address] [facility] [place] [address] * (ABNORMAL) POCT glucose (11/01/2024 9:59 PM CDT) Glucose, POC 217(H) 70 - 199 mg/dL Glucose comment 1 Use This Result [facility] Glucose comment 2 RN/MD Notified [facility] Blood 11/01/2024 9:59 PM CDT 11/01/2024 9:59 PM CDT us Des Lopez MD LAB POCT ORDERABLES - DEVICE F inal Result Performing Organization Address [facility] de Phone Number [address] [place] [address] * (ABNORMAL) Urinalysis reflex to microscopic and [...] uric acid stone formation. Source: [facility] Current Interpretive Data was last revised [...] ERAL ORDERABLES Final Result Performing Organization Address [facility]/ZIP Co de Phone Number [address] [place] [address] * (ABNORMAL) Urinalysis, microscopic only (11/01/2024 7:23 [...] PM CDT us Tahmina Palencia MD LAB URINE ORDERABLES F inal Result [facility] [address] [facility] Department [place] [address] * (ABNORMAL) Urine culture Urine (11/01/2024 7:23 PM CDT) Report Final Report: Greater than or equal to 100,000 colonies/mL of Proteus mirabilis Plus growth of clinically insignificant bacterial shruti. (.) Comment:Testing performed by : [facility], [address] [facility], [place]., [address] Organism PROTEUS MIRABILIS [facility] Organism PLUS GROWTH OF CLINICALLY INSIGNIFICANT SHRUTI. [facility] Urine 11/01/2024 7:23 PM CDT 11/02/2024 12:58 AM CDT Narrative [facility] - 11/04/2024 10:48 AM CDT Urine culture reflexed based upon urinalysis results. Testing performed by [facility] Microbiology Laboratory ([phone]) Organism Antibiotic Method Susceptibility Proteus mirabilis Ampicillin [...] - GEN ERAL ORDERABLES Final Result NILSA [address] [facility] Department [place] [address] * CT Chest Abdomen Pelvis W Contrast [...] Salvador Bronson M.D. KT T: Report ID: [id number] Reading Location: [id number] Procedure Note Salvador Bronson MD - 11/01/2024 [...] Salvador Bronson M.D. KT T: Report ID: [id number] Reading Location: [place] [address] Tahmina Palencia MD IM CT PROCEDURES Blessing l Result * CTA [...] and well aerated. ORBITS: No acute abnormality. [place] ocular lenses replaced bilaterally. OTHER: No other significant abnormality. INTRACRANIAL VESSELS [place]: The anterior, middle, posterior cerebral [...] signed by Redd ARMAS T: Report ID: [id number] Reading Location: [id number] Procedure Note Redd Hendrickson MD - 11/01/2024 [...] and well aerated. ORBITS: No acute abnormality. [place] ocular lenses replaced bilaterally. OTHER: No other significant abnormality. INTRACRANIAL VESSELS [place]: The anterior, middle, posterior cerebral [...] Redd Hendrickson M.D. CHANDA T: Report ID: [id number] Reading Location: [place] [address] Tahmina Palencia MD IMG CT PROCEDURES Blessing l Result * (ABNORMAL) Troponin T high-sensitivity 2-hour (11/01/2024 4:34 PM CDT) Trop T hs 53(H) <=14 ng/L Comment: Interpretive Data For further hscTnT resources including the diagnostic algorithm and an aid in interpretation, copy and paste this link: https://nrl.testcatalog.org/show/hsTrop Current Interpretive Data last revised 2020. Trop T hs delta -4 ng/L INLSA RODRIGES Trop T hs interp Insignificant NILSA RODRIGES Blood 11/01/2024 4:34 PM CDT 11/01/2024 4:45 PM CDT us Markie Sofia MD LAB BLOOD ORDERABLES F inal Result NILSA RODRIGES [address] [facility] Department [place] [address] * CT Head WO Contrast (11/01/2024 2:37 [...] Shayne Landaverde M.D. AM T: Report ID: [id number] Reading Location: [id number] Procedure Note Shayne Landaverde MD - 11/01/2024 [...] Shayne Landaverde M.D. AM T: Report ID: [id number] Reading Location: [id number] Brittney CUEVA IMG CT PROCEDURES Final Re [...] James Javier M.D. MZ T: Report ID: [id number] Reading Location: [id number] Procedure Note James Javier MD - 11/01/2024 [...] James Javier M.D. MZ T: Report ID: [id number] Reading Location: [place] [address] us Tahmina Palencia MD IMG XR PROCEDURES Blessing l Result * (ABNORMAL) Troponin T high-sensitivity series (baseline, 2hr, 4hr, 6hr) (11/01/2024 2:03 PM CDT) Pathologist [facility] Trop T hs 57(H) <=14 ng/L Comment: Interpretive Data For further hscTnT resources including the diagnostic algorithm and an aid in interpretation, copy and paste this link: https://nrl.testcatalog.org/show/hsTrop Current Interpretive Data last revised 2020. Blood 11/01/2024 2:03 PM CDT 11/01/2024 2:05 PM CDT us Tahmina Palencia MD LAB BLOOD ORDERABLES F inal Result [facility] [address] [facility] Department [place] [address] * (ABNORMAL) eGFR (11/01/2024 2:03 PM CDT) [...] MD LAB BLOOD ORDERABLES F inal Result [place] 122652 [facility] Department [place] [address] * (ABNORMAL) Differential, auto (11/01/2024 2:03 PM [...] F inal Result [facility] [address] [facility] Department [place] [address] * (ABNORMAL) Pro B-type natriuretic peptide (11/01/2024 [...] MD LAB BLOOD ORDERABLES F inal Result [place] 122658 [facility] Department [place] [address] * (ABNORMAL) CBC with auto differential (11/01/2024 2:03 PM CDT) WBC 9.95(H) 3.80 - 9.90 K/cumm Hgb [...] F inal Result [facility] [address] [facility] Department [place] [address] * (ABNORMAL) Comprehensive metabolic panel (11/01/2024 2:03 [...] ORDERABLES F inal Result Performing Organization Address [facility]/ZIP Co de Phone Number [facility] [address] [facility] Department [place] [address] * ECG 12 lead (11/01/2024 1:59 PM CDT) Ventricular Rate EKG/Min 73 BPM [facility] Atrial Rate 73 BPM [facility] IN-Interval (MSEC) 146 ms [facility] QRS-Interval (MSEC) 58 ms [facility] QT-Interval (MSEC) 396 ms [facility] QTc 436 ms [facility] P [place] 47 degrees [facility] R [place] 2 degrees [facility] T [place] 66 degrees [facility] Diagnosis Normal sinus rhythm Normal ECG When compared with ECG of 12-JUL-2024 11:48, No significant change was found Confirmed by DIAMOND GUTIERREZ M.D. ([id number]) on 11/02/2024 11:07:33 PM [facility] 11/01/2024 1:59 PM CDT 11/02/2024 11:07 PM CDT us Tahmina Palencia MD ECG ORDERABLES Final Result Performing Organization Address [facility] de Phone Number [facility] * (ABNORMAL) Urinalysis reflex to microscopic and culture Urine, clean voided (10/31/2024 9:47 AM CDT) Color, ur Mikayla Yellow Comment:Testing performed by : [address] [address] Clarity, ur Turbid(A) Clear NILSA Comment:Testing performed by : [address] [address] Specific gravity, ur 1.008 1.003 - 1.030 NILSA Comment:Testing performed by : [address] [address] pH, urine 8.0 NILSA Comment: Interpretive Data U rine pH is affected by diet, medications, systemic acid-base disturbances, and renal tubular function. pH may affect urinary stone formation. For example, urine pH below 6.0 may help reduce the tendency for calcium phosphate stones and pH greater than 6.0 may reduce the tendency for uric acid stone formation. Source: [facility] Current Interpretive Data was last revised on 2017 Testing performed by: [facility], [address] [place] [address]., [address] Protein, ur ql 2+(A) Negative NILSA Comment:Testing performed by : [address], [place]., [address] Glucose, ur ql 3+(A) Negative NILSA Comment:Testing performed by : [address], [place]., [address] Ketones, ur Negative Negative NILSA Comment:Testing performed by : [address], [place]., [address] Bilirubin, ur Negative Negative NILSA Comment:Testing performed by : [address], [place]., [address] Blood, ur Trace(A) Negative NILSA Comment:Testing performed by : [address], [place]., [address] Urobilinogen, ur <2.0 <2.0 mg/dL NILSA Comment:Testing performed by : [address] [address] Nitrite, ur Negative Negative NILSA Comment:Testing performed by : [address] [address] Leukocyte esterase, ur 4+(A) Negative NILSA Comment:Testing performed by : [address] [address] UA reflex comment Reflex to microscopic UA will be performed. NILSA Comment:Testing performed by : [address], [place]., [address] Urine, clean voided 10/31/2024 9:47 AM CDT 10/31/2024 9:50 AM CDT us Cherelle Corcoran MD LAB MICROBIOLOGY - GENERAL ORDERABLES Final Result NILSA [facility] Department [place] [address] * (ABNORMAL) Urinalysis, microscopic only (10/31/2024 9:47 AM CDT) WBC, ur 6-10(A) 0 - 5 /HPF Comment:Testing performed by : [address] [address] RBC, ur 0-2 0 - 2 /HPF NILSA Comment:Testing performed by : [facility], [address] [place] [address]., [address] Bacteria, ur Trace(A) NILSA Comment:Testing performed by : [address] [address] Culture Reflex Comment Reflex conditions for urine culture (WBC >10) not met. NILSA Comment:Testing performed by : [address] [address] Urine, clean voided 10/31/2024 9:47 AM CDT 10/31/2024 9:50 AM CDT us Cherelle Corcoran MD LAB URINE ORDERAB LES Final Result Performing Organization Address [facility]/State/[facility] Co de Phone Number NILSA [facility] [place] [address] * XR Chest PA Lateral 2 Views [...] Edwardo Louis M.D. RW: ADAMARIS Report ID: [id number] Reading Location: [id number] Procedure Note Edwardo Louis MD - 10/24/2024 [...] Edwardo Louis M.D. RW: ADAMARIS Report ID: [id number] Reading Location: [id number] Cherelle Corcoran MD IMG XR PROCEDURES Final Result * CT CORONARY CALCIUM SCORING (10/17/2024 9:30 AM CDT) Anatomical Region Laterality Modality Chest Computed Tomogra phy Historical Provider IMG CT PROCEDURES Final R esult * Diabetic Eye Exam (07/27/2024 12:37 PM PREPARATION SUPERVISOR CANNING) Historical Provider HEALTH MAINTENANCE Final Result * Colonoscopy (03/01/2024 8:49 AM CDT) Anatomical Region Laterality Modality Other Narrative Procedure Note Jaya Grier MD - 03/01/2024 8:49 AM CDT [facility] GI ENDOSCOPY Patient Name: Barbara Chakraborty Procedure Date: 03/01/2024 8:49 AM Date of : 1950 Admit Type: Outpatient Age: 73 Gender: Female Attending MD: Jaya Grier M.D. Room: [facility] ENDOSCOPY ROOM 06 Note Status: [...] The scope was passed under direct vision.The [id number]-[id number] colonoscope was introduced through theanus and advanced [...] On: 03/01/2024 8:49 AM Recognized by the [place] [employer] Gastrointestinal [employer] for promoting quality [...] taking vitamin-D. History of end-stage renal disease. 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 TW: TW Report ID: [id number] Reading Location: [id number] Procedure Note Rafaela Paulino MD - 01/22/2024 EXAM DESCRIPTION: DEXA AXIAL SKELETON BONE DENSITY 1 OR MORE SITES REASON FOR STUDY: 73 y/o year old F with given history of: Post menopausal status. History of taking vitamin-D. History of end-stagerenal disease. 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 TW: TW Report ID: [id number] Reading Location: [id number] us Cherelle Corcoran MD IMDiaz DXA PROCEDURE [...] age 40, based on guidelines of the [place] [employer] (ACR Practice Parameter for the Performance of Screening and Diagnostic Mammography) and [place] [employer] Obstetricians and Gynecologists. For women [...] CDT Jimbo Strauss MD LAB MICROBIOLOGY - [facility] Final Result NILSA [address] [facility] Department [place] [address] * (ABNORMAL) Albumin Creatinine Ratio, Urine (10/10/2022 11:39 AM CDT) Albumin Ur 3,240.2 mg/L NILSA Comment: Interpretive Data No reference range established. Current interpretive data was last revised 2018. Testing performed by: [address] [address] Creatinine Ur 74.8 mg/dL NILSA Comment: Interpretive Data No reference range established. Current interpretive data was last revised 2018. Testing performed by: [address] [address] Albumin Creatinine Ratio, Ur 4,332(H) 1 - 29 mg/g NILSA Comment:Testing performed by : [address] [address] Urine 10/10/2022 11:3 9 AM CDT 10/10/2022 1:45 PM CDT Markie Rayn MD LAB URINE ORDERABLES Final Re sult NILSA [address] [facility] Department of Laboratories [place], [place] [address] from Last 3 Months or Most Recently Relevant to Health Maintenance
--- OUTSIDE RECORDS SUMMARY | 2024-12-26 11:58 | XMS_ITS | Encounter Summary ---
Author Organization [facility] Address [address] [place] [address] Phone Care Team Providers Care Invasive Cardiologist Name Role Phone Cherelle Corcoran MD Primary Care Pro vider QueenMark Perez MD Unavailable [phone] Brandie Callejas MA Unavailable Unav ailable Xenia Padilla LPN Unavailable [phone] Samples, Melania Joel RN Unavailable Anam Costa LCSW Unavailable Unavailabl e Samples, Melania Joel RN Unavailable Rudolph Welch MD Unavailable Markie Ryan MD Unavailable [phone] Nadege Ramírez RN Unavailable [phone] Dulce Vega RN Unavailable Jimbo Strauss MD Unavailable [phone] Jaya Grier MD Unavailable Edgardo Kauffman MD Unavailable [phone] Macrina Mike RN Unavailable Encounter Details Date Type Department Care Team (Late st Contact Info) Description 12/30/2021 Telephone [facility] Endocrinology Metabolism and Lipid [address] [facility] 5th [place] [address] [place] [id number] Rachael Smith CMA Social History Tobacco Use [...] file Legal Sex Female 9:03 AM 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 Gender Identity Female 02/08/2020 6:39 PM [...] COVID: Suspected 05/08/2022 05/08/2022 05/08/2022 4:26 PM SENIOR ELECTRICAL CONTROLS ENGINEER COVID: Suspected 06/19/2022 06/19/2022 06/19/2022 12:37 PM SENIOR ELECTRICAL CONTROLS ENGINEER COVID: Suspected 08/01/2022 08/01/2022 08/01/2022 2:28 PM SENIOR ELECTRICAL CONTROLS ENGINEER COVID: Suspected 10/02/2022 10/02/2022 10/02/2022 8:14 PM CDT MRSA Comment:Toe 11/08/22, 12/12/22 11/08/2022 12/12/2022 06/10/2023 3:05 AM SENIOR ELECTRICAL CONTROLS ENGINEER COVID: Suspected 12/08/2022 12/08/2022 12/08/2022 8:17 PM CDT COVID: Suspected 07/27/2023 07/27/2023 07/28/2023 12:57 AM SENIOR ELECTRICAL CONTROLS ENGINEER COVID: Suspected 10/29/2023 10/30/2023 10/30/2023 10:59 AM CDT 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 12/19/2023 12/19/2023 3:58 PM CDT 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 12/29/2023 06/26/2024 3:05 AM SENIOR ELECTRICAL CONTROLS ENGINEER COVID: Suspected 04/19/2024 04/19/2024 04/20/2024 12:44 AM CDT COVID: Suspected 07/12/2024 07/12/2024 07/12/2024 12:39 PM SENIOR ELECTRICAL CONTROLS ENGINEER COVID: Suspected 07/31/2024 07/31/2024 07/31/2024 2:06 PM SENIOR ELECTRICAL CONTROLS ENGINEER documented as of this encounter Care Teams Invasive Cardiologist Relationship Specialty Start Date End Date Cherelle Corcoran MD PCP - General Family Medicine 08/30/19 Mark Queen MD Consulting Physician Infectious Diseases 01/10/20 Brandie Callejas MA Patient Cad Specialist 06/20/22 06/22/22 Xenia Padilla LPN [address] [place] [address] [address] [place] [address] Air Traffic Control Specialist 06/24/22 06/24/22 Samples, Melania Joel RN [address] [place] [address] [address] [place] [address] Air Traffic Control Specialist 07/22/22 08/21/22 Anam Costa LCSW [address] [place] [address] [address] [place] [address] Desktop Publishing Associate 08/08/22 02/18/23 Samples, Melania Joel RN [address] [place] [address] [address] [place] [address] Air Traffic Control Specialist 08/22/22 12/07/22 Rudolph Welch MD [address] [facility] [address] [place] [address] Consulting Physician Infectious Diseases 12/05/22 Markie Ryan MD [address] [facility] [address] [place] [address] Consulting Physician Nephrology 12/05/22 Nadege Ramírez RN [address] [place] [address] [address] [place] [address] Air Traffic Control Specialist 01/20/23 02/23/23 Dulce Vega RN [address] [place] [address] [address] [place] [address] Air Traffic Control Specialist 10/07/23 05/03/24 [place] [address] [facility] [address] [place] [address] Consulting Physician Nephrology 10/22/23 Jaya Grier MD [address] [facility] [address] [place] [address] Consulting Physician Gastroenterology 02/01/24 Edgardo Kauffman MD [address] [facility] [address] [facility] [address] [place] [address] Surgeon Vascular Surgery 07/15/24 Macrina Mike, ALIREZA [address] [place] [address] [address] [place] [address] Air Traffic Control Specialist 11/07/24 11/30/24 documented as of this encounter
--- OUTSIDE RECORDS SUMMARY | 2024-12-26 11:58 | XMS_ITS | Encounter Summary ---
Author Organization [facility] Healthcare Address [address] [place] [address] Care Team Providers Care Office Correspondent Name Role Phone Cherelle Corcoran MD Primary Care Pro vider Mark Queen MD Unavailable [phone] Rudolph Welch MD Unavailable Markie Ryan MD Unavailable [phone] Jimbo Strauss MD Unavailable [phone] Jaya Grier MD Unavailable Edgardo Kauffman MD Unavailable Macrina Mike RN Unavailable Encounter Details Date Type Department Care Team (Late st Contact Info) Description 10/25/2024 Results Follow-Up [facility] Medical Group Primary Care at [address] [place] [address] Cherelle Corcoran MD [facility] [address] XR Chest PA Lateral 2 [...] materials from doctor or pharmacy Often 01/20/2024 [facility] Utilities Answer Date Recorded In the past 12 months has e [employer], gas, oil, or water [employer] threatened to shut off services in your [...] you attend chur ch or restorationist services? Patient unable to answer 11/07/2024 Do [...] in a half-way (including now)? No 10/30/2023 PHQ-9 Answer Date [...] living in a half-way (including now)? No 11/07/2024 Personal Safety Answer Date Recorded Have you ever been in or are you currently in a harmful physical or emotional relationship or is someone making you feel afraid or unsafe? 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 Gender Identity Female 02/08/2020 6:39 PM CDT Sexual Orientation Not on file documented as of this encounter Plan of Treatment Scheduled Procedures Name Priority Associated Diagnoses Date/Ti me COLONOSCOPY Iron deficiency anemia due to chronic blood loss documented as of this encounter Visit Diagnoses Not on filedocumented in this encounter Care Teams Office Correspondent Relationship Specialty Start Date End Date Cherelle Corcoran MD PCP - General Family Medicine 08/30/19 Mark Queen MD Consulting Physician Infectious Diseases 01/10/20 Rudolph Welch MD [address] [facility] [address] [place] [address] Consulting Physician Infectious Diseases 12/05/22 Markie Ryan MD [address] [facility] [address] [place] [address] Consulting Physician Nephrology 12/05/22 [place] [address] [facility] [address] [place] [address] Consulting Physician Nephrology 10/22/23 Jaya Grier MD [address] [facility] [address] [place] [address] Consulting Physician Gastroenterology 02/01/24 Edgardo Kauffman MD [address] [facility] [address] [place] [address] Surgeon Vascular Surgery 07/15/24 Macrina Mike RN [address] [place] [address] [address] [place] [address] Publicity Director 11/07/24 11/30/24 documented as of this encounter
--- OUTSIDE RECORDS SUMMARY | 2024-12-26 11:58 | XMS_ITS | Continuity of Care Document ---
Author Organization [facility] Address [address] [place] [address] Phone Care Team Providers Care Catalyst Concentration Operator Name Role Phone Luis OD, Alvarado Unavailable Unavailable Advance Directives Directive Yes / No Effective Date File Name No Information Encounters Encounter Description Practice Location Reason(s) For Visit Diagnoses Date Provider Providers Copied on Encounter [facility], [address], [place], [place], [id number], [place] tel:[phone] [facility] No Information May-2 0-200 5 Luis OD Alvarado. [address] [facility] , [address], [place], [address], [place]. tel:[phone] Family History Family Member Type Diagnosis Age At Onset No Information Payers Payer name Insurance type Covered republican ID Authoriza tion(s) Medicaid [facility] [id number] Social History Type Description Quantity Date Captured [...]
--- OUTSIDE RECORDS SUMMARY | 2024-12-26 11:59 | XMS_ITS | Referral Summary ---
Author Organization [facility] Address [address] [place] [address] Care Team Providers Care Wire Preparation Machine Tender Name Role Phone Cherelle Corcoran MD Primary Care Pro vider Mark Queen MD Unavailable [phone] Rudolph Welch MD Unavailable Markie Ryan MD Unavailable [phone] Jimbo Strauss MD Unavailable [phone] Jaya Grier MD Unavailable Edgardo Kauffman MD Unavailable [phone] Encounters Date Type Department Care Team Description 12/26/2024 Nurse Triage [facility] Medical [facility] Primary Care at [address] [place] [phone] Cherelle Corcoran MD 12/26/2024 8:40 AM CDT Office Visit [facility] Endocrinology Metabolism and Lipid [address] [facility] Medical Office Building [address], [address] [place] [address] Smith Gibbs MD Type 2 diabetes mellitus with chronic kidney disease on chronic dialysis, with long-term current use of insulin (HCC) (Primary Dx); Primary hypertension; Mixed hyperlipidemia; Diabetic polyneuropathy associated with type 2 diabetes mellitus (HCC); Type 2 diabetes mellitus with diabetic neuropathy, with long-term current use of insulin (HCC) 11/29/2024 3:30 PM CDT Office Visit [facility] Primary Care at [address] [phone] Cherelle Corcoran MD Multiple falls (Primary Dx); Hypertension associated with diabetes (HCC); Type 2 diabetes mellitus with diabetic neuropathy, with long-term current use of insulin (HCC); Chronic diastolic congestive heart failure (HCC); Acute pain of left shoulder 11/28/2024 Telephone [facility] Primary Care at [address] [phone] Cherelle Corcoran MD 11/25/2024 Orders Only [facility] [phone] Unknown, Notinfile 11/24/2024 Telephone [facility] Primary Care at [address] [phone] Cherelle Corcoran MD JOY Questions 11/21/2024 Orders Only [facility] [phone] Unknown, Notinfile 11/15/2024 Orders Only [facility] [phone] Unknown, Notinfile 11/14/2024 Orders Only [facility] [phone] Unknown, Notinfile 11/13/2024 Orders Only [facility] [phone] Unknown, Notinfile 11/07/2024 Telephone [facility] Nephrology at [address] [phone] Markie Ryan MD 11/07/2024 Telephone [facility] Primary Care at [address] [phone] Cherelle Corcoran MD Additional Services Or Orders 11/07/2024 Telephone [facility] Primary Care at [address] [phone] Cherelle Corcoran MD 11/07/2024 Telephone [facility] Medical [facility] Primary Care at [address] [phone] Cherelle Corcoran MD Appointment Request 11/01/2024 3:17 PM CDT - 11/05/2024 1:00 PM CDT Hospital Encounter [address] [address] [employer]grai[employer]ah[employer] brothers MD Medavaram, Atul, MD Al Furgani, Mahmud Mustafa, MD Hypertensive urgency (Primary Dx); Acute cystitis without hematuria; Generalized weakness; Peripheral vertigo, unspecified laterality; Lightheadedness; ESRD on hemodialysis (HCC); Anemia of renal disease; Hyponatremia Discharge Disposition: Discharge to home, home health skilled care 11/01/2024 Nurse Triage [facility] Medical [facility] Primary Care at [address] [phone] Cherelle Corcoran MD 10/31/2024 Results Follow-Up [facility] Primary Care at [address] [phone] Cherelle Corcoran MD Urinalysis reflex to microscopic and culture Urine, clean voided, Urinalysis, microscopic only 10/31/2024 8:53 AM CDT - 10/31/2024 11:59 PM CDT Hospital Encounter [facility] Medical Office Building [address] [place] [address] UTI symptoms Discharge Disposition: Discharge to home or self care 10/25/2024 Results Follow-Up [facility] Primary Care at [address] [phone] Cherelle Corcoran MD XR Chest PA Lateral 2 Views 10/24/2024 11:45 AM CDT - 10/24/2024 11:59 PM CDT Hospital Encounter [facility] [place] MOB 1 DIAG IMG [address] [place] [phone] SOB (shortness of breath) Discharge Disposition: Discharge to home or self care 10/24/2024 11:35 AM CDT Lab [facility] Medical Office Building [address] [place] [phone] 10/24/2024 10:30 AM CDT Office Visit [facility] Medical [facility] Primary Care at [address] [place] [phone] Cherelle Corcoran MD Encounter for Medicare annual [...] behavioral disturbance (HCC); Parkinsonism, unspecified Parkinsonism type ([facility]); Schizoaffective disorder, bipolar type (HCC); Chronic diastolic congestive heart failure (HCC); Gastroesophageal reflux disease without esophagitis 10/18/2024 Orders Only [facility] Nephrology at [address] [place] [phone] Joe Ballard MD 10/03/2024 Telephone [facility] Endocrinology Metabolism and Lipid [address] [facility] Medical Office Building [address], [address] [place] [address] Yoly Herrera RN Insulin dosing 10/03/2024 Telephone [facility] Primary Care at [address] [place] [address] Cherelle Corcoran MD Medical Question/Miscellaneous from Last 3 Months Allergies No known active allergies Medications FreeStyle Madhav 3 [facility] Use Madhav 3 reader to scan Madhav 3 sensor 04/05/ 2024 Active pen needle, diabetic (Easy Touch) 32 [...] by . 30 patch 11 2024 Active hydrALAZINE (APRESOLINE) [...] DAILY 90 tablet 1 2024 Active lidocain-me.sali mws-dpad-yqxqi 4-20-0.025-5 % adhesive patch,medicated Apply 1 patch topically 2024 Active blood glucose diagnostic (Easy Touch Test Strip) stripIndications :Type 2 diabetes mellitus with chronic kidney disease on chronic dialysis, with long-term current use of insulin ([facility]) 1 each by other route daily [...] use of insulin ([facility]) 1 each by other route daily [...] restarting Assessment & Plan (07/14/2024 2:30 PM GAMBLING MONITOR): Continue Lipitor Assessment & Plan (07/14/2024 8:56 AM GAMBLING MONITOR): Ok to restart atorvastatin, but also given [...] nephrology Assessment & Plan (07/14/2024 2:39 PM GAMBLING MONITOR): Patient is needing a Perma catheter exchange [...] proceed. Assessment & Plan (07/14/2024 8:51 AM GAMBLING MONITOR): Following with nephrology Assessment & Plan (01/06/2024 [...] 10/30/2023 Assessment & Plan (05/06/2024 7:49 AM GAMBLING MONITOR): Reviewed hospital discharge summary Now resolved Upcoming [...] stable Assessment & Plan (07/24/2023 1:51 PM GAMBLING MONITOR): Chronic/stable Parkinsonism 08/14/2022 Assessment & Plan (10/24/2024 10:57 AM CDT): Following with neurology Assessment & Plan (07/14/2024 8:54 AM GAMBLING MONITOR): Following with neurology, recommend reaching out to them in regards to restarting benztropine. Consider waiting until after restarts other medications given daughter reports tremors controlled off benztropine currently Assessment & Plan (11/10/2023 4:43 PM CDT): Following with neurology On cogentin Assessment & Plan (07/24/2023 1:50 PM GAMBLING MONITOR): Following with neurology On cogentin twice a day Assessment & Plan (01/23/2023 9:20 AM CDT): Following with neurology On cogentin twice a day Assessment & Plan (10/10/2022 10:41 AM CDT): Following with neurology On cogentin Assessment & Plan (08/14/2022 10:46 AM GAMBLING MONITOR): Following with neurology, reviewed note On cogentin [...] recommends SNF. -Plan [facility] on 11/26 ? Assessment & Plan (11/24/2021 2:07 PM CDT): Deconditioning 2/2 prolonged hospitalization. Daughter reports that prior to her illness, she was independent with a walker. - PT/OT recommends SNF. -Plan [facility] on 11/25. Assessment & Plan (11/23/2021 12:24 PM CDT): Deconditioning 2/2 prolonged hospitalization. Daughter reports that prior to her illness, she was independent with a walker. - PT/OT recommends SNF. -Plan [facility] on 11/25. Assessment & Plan (11/22/2021 1:34 PM CDT): Deconditioning 2/2 prolonged hospitalization. Daughter reports that prior to her illness, she was independent with a walker. - PT/OT recommends SNF. -Plan Agueda Rizzo [facility] on 11/25. Assessment & Plan (11/21/2021 12:13 [...] care Assessment & Plan (08/14/2022 10:47 AM GAMBLING MONITOR): Following with podiatry Assessment & Plan (04/02/2022 [...] - renal consulted regarding volume management, possible alf dialysis planning, expedite OP f/u. Serologies and urine studies ordered. ED neg, compliments neg, cryoglobulin pending, ANCA pending, HIV neg. Continued -Added metolazone 2.5mg/daily per renal 09/13- with improving swelling, Cr bump to 2.33 so held further -Transitioned to PO agents prior to DC (09/17) with ongoing clinical improvement. Goal weight 155lbs -Home with family at [place], want ad supervisor consulted to review salt restrictions. -outpatient BMP, [...] - renal consulted regarding volume management, possible alf dialysis planning, expedite OP f/u. Serologies and urine studies ordered. ED neg, compliments neg, cryoglobulin pending, ANCA pending, HIV neg. Continued -Added metolazone 2.5mg/daily per renal 09/13- with improving swelling, Cr bump to 2.33 so held further -Anticipate likely transition to PO agents prior to DC (?09/17) with ongoing clinical improvement. Goal weight 155lbs -Home with family at [place], want ad supervisor consulted to review salt restrictions. Assessment & [...] consulted regarding volume management, possible terminal operations manager dialysis planning, expedite OP f/u. Serologies and urine studies ordered. -Added metolazone 2.5mg/daily per renal. -Anticipate likely transition to PO agents prior to DC with ongoing clinical improvement. Goal weight 145-150lbs -Home with family at [place], want ad supervisor consulted to review salt restrictions. Assessment & [...] consulted regarding volume management, possible terminal operations manager dialysis planning, expedite OP f/u. Serologies [...] - renal consulted regarding volume management, possible alf dialysis planning, expedite OP f/u. Serologies and [...] - renal consulted regarding volume management, possible alf dialysis planning, expedite OP f/u. Assessment & [...] net neg 1/2-1L/day. -consider renal consult regarding alf dialysis planning, expedite OP f/u. Assessment & [...] net neg 1/2-1L/day. -consider renal consult regarding alf dialysis planning. Assessment & Plan (09/06/2021 10:28 [...] neurology Assessment & Plan (07/14/2024 8:53 AM GAMBLING MONITOR): Following with neurology Assessment & Plan (01/05/2024 10:40 PM CDT): Follows with neurology. -continue risperidone 2mg QHS -continue benztropine 2mg daily Assessment & Plan (11/10/2023 4:37 PM CDT): Following with neurology Assessment & Plan (07/24/2023 1:50 PM GAMBLING MONITOR): Following with neurology Assessment & Plan (01/23/2023 9:18 AM CDT): Following with neurology Assessment & Plan (10/10/2022 10:37 AM CDT): Following with neurology, ordered MRI, # given to son to schedule Assessment & Plan (06/09/2022 3:37 PM GAMBLING MONITOR): Needs to reschedule with neurology [facility], but [facility] for [facility] for schizoaffective disorder Assessment & [...] (11/10/2023 4:42 PM CDT): Reviewed PMH & FH PHQ Screening PHQ-2 Total Score (If total score is 3 or more points, staff should administer the PHQ-9): 2 Hearing/vision screening reviewed, referrals placed as needed Fall risk reviewed Reviewed medications and supplements Specialists: endocrine, nephrology, cardiology, neurology, psychiatry evidence of cognitive impairment HCM: orders placed as needed Assessment & Plan (06/09/2022 3:37 PM GAMBLING MONITOR): Reviewed PM & PHQ Screening PHQ-2 Total [...] psychiatry Assessment & Plan (08/18/2024 8:44 AM GAMBLING MONITOR): Chronic, stable. Does not report any stephanie [...] discussed. Assessment & Plan (07/14/2024 8:54 AM GAMBLING MONITOR): Following with psychiatry, recommend reaching out to [...] psychiatry Assessment & Plan (07/24/2023 1:50 PM GAMBLING MONITOR): Following with psychiatry Assessment & Plan (01/23/2023 [...] discussed. Assessment & Plan (08/09/2021 5:42 AM GAMBLING MONITOR): Following with psychiatry Assessment & Plan (08/07/2021 3:28 PM GAMBLING MONITOR): Chronic condition, switch to Haldol and has had multiple different problems including acute kidney failure in infectious process. Records not available at outside [facility]. Confounded by delirium. Currently experiencing delirium will discontinue Haldol and return to Risperdal as previously taking. Risperdal was discontinued due to poorly-controlled diabetes. Monitor in 1 to 2 weeks. Assessment & Plan (07/03/2021 7:24 AM GAMBLING MONITOR): Following with psychiatry D/c risperidone, started on haldol Assessment & Plan (07/01/2021 9:16 PM GAMBLING MONITOR): Chronic, stable. +persistent auditory hallucinations Discontinue Risperdal [...] Reviewed all of those notes-primary care doctor, dynamometer tester, job placement officer. The patient previously lived on her own and was observed to be hoarding. See additional problems-dementia. Evaluate again in 1 month after starting Risperdal. Iron deficiency anemia 04/02/2020 Assessment & Plan (05/06/2024 7:51 AM GAMBLING MONITOR): Recommend discussing IV iron with nephrology Assessment & Plan (10/02/2020 4:35 PM CDT): Continue iron Assessment & Plan (05/28/2020 1:51 PM GAMBLING MONITOR): Iron levels recently normalized, but still anemic, repeat today Assessment & Plan (04/16/2020 11:45 AM CDT): Recent iron within normal limits, H/H improving, continue supplementation until normalized Gastroesophageal reflux disease without esophagi tis 04/02/2020 Assessment & Plan (10/24/2024 10:57 AM CDT): continue protonix Following with GI Assessment & Plan (07/14/2024 8:56 AM GAMBLING MONITOR): Restart protonix Upcoming EGD Assessment & Plan (01/05/2024 10:40 PM CDT): -continue famotidine Assessment & Plan (10/02/2020 4:35 PM CDT): Continue omeprazole Assessment & Plan (07/24/2020 2:06 PM GAMBLING MONITOR): Recurrent symptoms off omeprazole, restart Assessment & Plan (05/28/2020 1:51 PM GAMBLING MONITOR): Iron levels recently normalized, but still anemic, repeat today Assessment & Plan (04/02/2020 1:26 PM CDT): Start PPI History of amputation of toe 01/19/2020 Assessment & Plan (01/08/2021 3:50 PM CDT): Stable Assessment & Plan (10/02/2020 4:35 PM CDT): Stable Assessment & Plan (04/30/2020 1:00 PM GAMBLING MONITOR): Stable Assessment & Plan (02/14/2020 5:15 PM [...] controlled Assessment & Plan (07/14/2024 2:32 PM GAMBLING MONITOR): Continue carvedilol, hydralazine Assessment & Plan (07/14/2024 8:51 AM GAMBLING MONITOR): BP controlled today off medication Daughter reports nephrology said could restart medication, is planning to restart coreg first and monitor blood pressure prior to restarting nifedipine/hydralazine Assessment & Plan (05/06/2024 7:48 AM GAMBLING MONITOR): BP controlled Continue nifedipine, hold prior to [...] admission at [facility] with initiation of hydralazine and nifedipine [...] amlodipine Assessment & Plan (08/03/2023 4:02 PM GAMBLING MONITOR): BP uncontrolled Start 5mg amlodipine Assessment & Plan (07/24/2023 1:49 PM GAMBLING MONITOR): Blood pressure borderline today off medications Assessment & Plan (01/23/2023 9:18 AM CDT): Blood pressure borderline low today, asymptomatic Checking labs Advised to decrease amlodipine to 5mg and monitor blood pressure Assessment & Plan (10/10/2022 10:50 AM CDT): Continue coreg 6.25mg twice a day & 40mg valsartan Assessment & Plan (08/14/2022 10:43 AM GAMBLING MONITOR): Blood pressure at goal, continue coreg 6.25mg twice a day Assessment & Plan (06/09/2022 3:32 PM GAMBLING MONITOR): Blood pressure at goal, continue coreg 3.125mg [...] day Assessment & Plan (08/05/2021 10:35 AM GAMBLING MONITOR): Blood pressure at goal Increase amlodipine to 10mg & d/c hydralazine per cardiology Assessment & Plan (05/28/2021 4:59 PM GAMBLING MONITOR): Blood pressure above goal, but previously within [...] lisinopril Assessment & Plan (08/28/2020 12:12 PM GAMBLING MONITOR): Blood pressure at goal Continue lisinopril Assessment & Plan (07/24/2020 2:05 PM GAMBLING MONITOR): Blood pressure at goal Continue lisinopril Assessment & Plan (05/28/2020 1:50 PM GAMBLING MONITOR): BP borderline Continue 10mg lisinopril Continue to monitor Assessment & Plan (04/30/2020 12:32 PM GAMBLING MONITOR): BP borderline Continue 10mg lisinopril Continue to [...] endocrine Assessment & Plan (07/14/2024 2:31 PM GAMBLING MONITOR): Controlled. Continue as per Endocrine and PCP Assessment & Plan (07/14/2024 8:50 AM GAMBLING MONITOR): Following with endocrine, reviewed note Holding insulin [...] +SSI Assessment & Plan (07/24/2023 1:49 PM GAMBLING MONITOR): Lab Results Component Value Date HGBA1C 8.1 [...] trulicity Assessment & Plan (08/14/2022 10:42 AM GAMBLING MONITOR): Following with endocrine Continue lantus, 12 units humalog TIDAC & 1.5mg trulicity Assessment & Plan (06/09/2022 3:32 PM GAMBLING MONITOR): Following with endocrine Home blood sugar at [...] as she had discussed this with outpatient advertising internship - repeat A1c - resume home statin, not currently on feliciano due to kidney function Assessment & Plan (08/05/2021 10:35 AM GAMBLING MONITOR): Continue 15 units lantus twice a day Assessment & Plan (07/03/2021 7:24 AM GAMBLING MONITOR): Fasting blood sugar significantly improved Risperidone changed Continue current meds Continue to monitor Assessment & Plan (06/18/2021 11:22 AM GAMBLING MONITOR): Increase lantus to 60 units nightly, if blood sugar still above goal after 1 week split into 33 units twice a day Follow up with blood sugar via portal in 2 weeks Continue jardiance 25mg Continue trulicity 4.5mg weekly Assessment & Plan (05/28/2021 4:58 PM GAMBLING MONITOR): Increase lantus to 55 units nightly Continue [...] weekly Assessment & Plan (08/28/2020 1:00 PM GAMBLING MONITOR): DM Care Plan: Meds: Lantus - continue [...] recheck Assessment & Plan (07/24/2020 2:05 PM GAMBLING MONITOR): Formulary change 2/2 insurance, switched to trulicity. Will increase to 1.5mg Assessment & Plan (05/28/2020 1:50 PM GAMBLING MONITOR): Check a1c Barbara isn't checking blood sugar regularly, but when she is she has several >200 so I lean towards increasing if a1c>7 Assessment & Plan (04/30/2020 12:31 PM GAMBLING MONITOR): Blood sugar improved on 40 units basaglar [...] Problem Noted Date Diagnosed Date Resolved Date Hypertensive urgency 11/01/2024 025 Unresponsive episode 04/21/2024 025 Metabolic encephalopathy 04/19/202403/2025 GI bleed 12/20/2022 11/10/2023 Assessment & Plan [...] was in the room. Recently treated at [facility] for PNA with prolonged course [...] was in the room. Recently treated at [facility] for PNA with prolonged course [...] was in the room. Recently treated at [facility] for PNA with prolonged course [...] was in the room. Recently treated at [facility] for PNA with prolonged course [...] was in the room. Recently treated at [facility] for PNA with prolonged course [...] was in the room. Recently treated at [facility] for PNA with prolonged course [...] was in the room. Recently treated at [facility] for PNA with prolonged course [...] was in the room. Recently treated at [facility] for PNA with prolonged course [...] was in the room. Recently treated at [facility] for PNA with prolonged course [...] was in the room. Recently treated at [facility] for PNA with prolonged course [...] 11/10/2023 Assessment & Plan (08/14/2022 10:44 AM GAMBLING MONITOR): Continue eliquis Assessment & Plan (06/09/2022 3:36 PM GAMBLING MONITOR): Continue eliquis Assessment & Plan (04/02/2022 6:05 [...] 10/10/2022 Assessment & Plan (08/07/2021 3:30 PM GAMBLING MONITOR): Subacute, persistent, hospitalized recently. She is alert [...] Impression: Patient recently had MRI performed at [facility] which revealed acute osteomyelitis to [...] 08/28/2020 Assessment & Plan (05/28/2020 1:52 PM GAMBLING MONITOR): Encouraged to follow up with wound clinic for reassessment Assessment & Plan (04/30/2020 12:31 PM GAMBLING MONITOR): Following with wound clinic Assessment & Plan [...] osteomyelitis on recent MRI performed at [facility]. She is being treated with antibiotic therapy [...] nightly Assessment & Plan (08/14/2022 10:42 AM GAMBLING MONITOR): Continue lyrica 150mg nightly Assessment & Plan (06/09/2022 3:32 PM GAMBLING MONITOR): Continue lyrica 150mg nightly Assessment & Plan [...] status. Assessment & Plan (05/28/2021 4:58 PM GAMBLING MONITOR): Continue lyrica 150mg nightly Assessment & Plan [...] gabapentin Assessment & Plan (08/28/2020 1:00 PM GAMBLING MONITOR): On gabapentin Assessment & Plan (07/24/2020 2:05 PM GAMBLING MONITOR): Continue gabapentin Assessment & Plan (04/02/2020 1:22 [...] materials from doctor or pharmacy Often 01/20/2024 [facility] Utilities Answer Date Recorded In the past 12 months has [employer], gas, oil, or water [employer] threatened to shut off services in your [...] in a fci (including now)? No 10/30/2023 PHQ-9 Answer Date [...] time in the past 12 [facility], were you homeless or living in a fci (including now)? No 11/07/2024 Personal Safety Answer Date Recorded Have you ever been in or are you currently in a harmful physical or emotional relationship or is someone making you feel afraid or unsafe? Denies 11/01/2024 Comments No Sex and Gender Information Value Date Recorded Sex Assigned at Not on file Legal Sex Female 9:03 AM GAMBLING MONITOR Gender Identity Female 02/08/2020 6:39 PM CDT [...] Mass Index 25.28 12/26/2024 9:34 AM CDT Plan of Treatment Scheduled Procedures Name Priority Associated Diagnoses Date/Ti me COLONOSCOPY Iron deficiency anemia due to chronic blood loss Medical Devices Implanted Type Area Manager Water Device Identifier Shelf Expiration Date Model / Serial / Lot [employer] Vascpak Safesheath D-Pro 15.5fr 24cm Kit Catheter [id number] - [id number] Implanted:Qty: 1 on 10/15/2023 at [facility] [employer] 10/19/2025 [id number] / / [id number] [facility] [employer] Embosafe 15.5fr 24cm Basic 2 Lumen Kit Catheter [id number] - [id number] Implanted:Qty: 1 on 07/15/2024 by Edgardo Kauffman MD at [facility] [employer] 08/19/2026 [id number] / / [id number] Procedures Procedure Name Priority Date/Time Associated Diagnosis [...] EYE EXAM Routine 07/27/2024 12: 37 PM GAMBLING MONITOR COLONOSCOPY 03/01/2024 8:49 AM CDT DEXA AXIAL [...] to Health Maintenance Results * POCT glucose (12/26/2024 9:39 AM CDT) Glucose Blood, POC 242 Normal Fasting 70 - 100, Random <200 mg/dL Blood 12/26/2024 9:39 AM CDT Smith Gibbs MD POINT OF CARE TEST ORDERABLE S Final Result * (ABNORMAL) eGFR (11/25/2024 12:58 PM CDT) eGFR 7(L) >=60 mL/min/1. 73 m2 NILSA [...] last reviewed 2021. Testing performed by: [address] [id number] Blood 11/25/2024 12:5 8 PM CDT 11/25/2024 2:12 PM CDT us Notinfile Unknown LAB BLOOD ORDERABLES Final Res ult NILSA [address] [facility] Department [place] [address] * (ABNORMAL) Differential, auto (11/25/2024 12:58 PM CDT) Neutrophil abs 6.51(H) 1.50 - 6.50 K/cumm NILSA Comment:Testing performed by : [address] [id number] Imm gran abs 0.05 0.00 - 0.10 K/cumm NILSA Comment:Testing performed by : [address] [address] Lymphocyte abs 2.37 0.80 - 3.30 K/cumm NILSA Comment:Testing performed by : [address] [address] Monocyte abs 0.70 0.20 - 0.80 K/cumm NILSA Comment:Testing performed by : [address] [address] Eosinophil abs 0.16 0.00 - 0.50 K/cumm NILSA Comment:Testing performed by : [address] [address] Basophil abs 0.04 0.00 - 0.10 K/cumm NILSA Comment:Testing performed by : [address] [address] Neutrophil pct 66.3 % NILSA Comment: Interpretive Data Percent cell count reference ranges are not reported, since discordance with absolute values may lead to misinterpretation of CBC data. Current Interpretive Data was last revised on 2017. Testing performed by: [address] [address] Imm gran pct 0.5 % [facility] Comment: Interpretive Data Percent cell count reference ranges are not reported, since discordance with absolute values may lead to misinterpretation of CBC data. Current Interpretive Data was last revised on 2017. Testing performed by: [address] [address] Lymphocyte pct 24.1 % [facility] Comment: Interpretive Data Percent cell count reference ranges are not reported, since discordance with absolute values may lead to misinterpretation of CBC data. Current Interpretive Data was last revised on 2017. Testing performed by: [address] [address] Monocyte pct 7.1 % [facility] Comment: Interpretive Data Percent cell count reference ranges are not reported, since discordance with absolute values may lead to misinterpretation of CBC data. Current Interpretive Data was last revised on 2017. Testing performed by: [address] [address] Eosinophil pct 1.6 % [facility] Comment: Interpretive Data Percent cell count reference ranges are not reported, since discordance with absolute values may lead to misinterpretation of CBC data. Current Interpretive Data was last revised on 2017. Testing performed by: [address] [address] Basophil pct 0.4 % [facility] Comment: Interpretive Data Percent cell count reference ranges are not reported, since discordance with absolute values may lead to misinterpretation of CBC data. Current Interpretive Data was last revised on 2017. Testing performed by: [address] [address] Blood 11/25/2024 12:5 8 PM CDT 11/25/2024 2:12 PM CDT us Notinfile Unknown LAB BLOOD ORDERABLES Final Res ult NILSA 4500 [facility] Department [place] [address] * (ABNORMAL) CBC with auto differential (11/25/2024 12:58 PM CDT) WBC 9.83 3.80 - 9.90 K/cumm NILSA Comment:Testing performed by : [address] [address] Hgb 9.9(L) 11.9 - 15.5 g/dL NILSA Comment:Testing performed by : [address] [address] Hct 31.1(L) 35.6 - 45.5 % NILSA Comment:Testing performed by : [address] [address] Plt 351 150 - 400 K/cumm NILSA Comment:Testing performed by : [address] [address] MPV 10.0 9.1 - 12.3 fL NILSA Comment:Testing performed by : [address] [address] RBC 3.07(L) 3.90 - 5.20 M/cumm NILSA Comment:Testing performed by : [address] 114[address] MCV 101.3(H) 81.3 - 96.4 fL NILSA Comment:Testing performed by : [address] [address] MCH 32.2 27.1 - 33.3 pg NILSA Comment:Testing performed by : [address] [address] MCHC 31.8(L) 32.3 - 35.7 g/dL NILSA Comment:Testing performed by : [address] [address] RDW CV 15.7(H) 11.1 - 14.9 % NILSA Comment:Testing performed by : [address] [address] RDW SD 56.9(H) 35.7 - 48.1 fL NILSA RODRIGES Comment:Testing performed by : [address] [address] NRBC abs 0.02(H) 0.00 - 0.01 K/cumm NILSA RODRIGES Comment:Testing performed by : [address] [address] Blood 11/25/2024 12:5 8 PM CDT 11/25/2024 2:12 PM CDT us Notinfile Unknown LAB BLOOD ORDERABLES Final Res ult NILSA 4500 [facility] Department of Laboratories [place], [place] [id number] * (ABNORMAL) Comprehensive metabolic panel (11/25/2024 12:58 PM CDT) Sodium 133(L) 135 - 145 mmol/L NILSA Comment:Testing performed by : [address] [address] Potassium, pl 4.4 3.3 - 4.9 mmol/L NILSA Comment:Testing performed by : [address] [address] Chloride 94(L) 97 - 110 mmol/L NILSA Comment:Testing performed by : [address] [address] CO2 23 22 - 32 mmol/L NILSA Comment:Testing performed by : [address] [address] Anion gap 16(H) 2 - 15 mmol/L NILSA Comment:Testing performed by : [address] [address] BUN 53(H) 6 - 25 mg/dL NILSA Comment:Testing performed by : [address] [address] Creatinine 5.90(H) 0.60 - 1.10 mg/dL NILSA Comment:Testing performed by : [address], [address] Glucose 139 70 - 199 mg/dL NILSA Comment: Interpretive [...] last revised 2022. Testing performed by: [address] [address] Calcium 9.4 8.5 - 10.3 mg/dL NILSA Comment:Testing performed by : [address] [address] Bilirubin, total <0.2 0.1 - 1.2 mg/dL NILSA Comment:Testing performed by : [address] [address] Protein, pl 7.5 6.5 - 8.5 g/dL NILSA Comment:Testing performed by : [address] [address] Albumin 4.0 3.5 - 5.0 g/dL NILSA Comment:Testing performed by : [address] [address] Alk phos 108 40 - 130 Units/L NILSA Comment:Testing performed by : [address] [address] ALT 9 7 - 45 Units/L NILSA Comment:Testing performed by : [address] [address] AST 11 10 - 45 Units/L NILSA Comment:Testing performed by : [address] [address] Blood 11/25/2024 12:5 8 PM CDT 11/25/2024 2:12 PM CDT us Notinfile Unknown LAB BLOOD ORDERABLES Final Res ult Performing Organization Address [facility] de Phone Number [facility] [address] [facility] [place] [address] * (ABNORMAL) eGFR (11/21/2024 4:15 AM CDT) [...] last reviewed 2021. Testing performed by: [address] [address] Blood 11/21/2024 4:15 AM CDT 11/21/2024 7:54 AM CDT us Notinfile Unknown LAB BLOOD ORDERABLES Final Res ult Performing Organization Address [facility] Co de Phone Number [facility] [address] [facility] [place] [address] * Differential, auto (11/21/2024 4:15 AM CDT) Neutrophil abs 6.24 1.50 - 6.50 K/cumm NILSA Comment:Testing performed by : [address] [address] Imm gran abs 0.06 0.00 - 0.10 K/cumm NILSA Comment:Testing performed by : [address], [place]., [address] Lymphocyte abs 2.12 0.80 - 3.30 K/cumm NILSA Comment:Testing performed by : [address], [place]., [address] Monocyte abs 0.70 0.20 - 0.80 K/cumm NILSA Comment:Testing performed by : [address], [place]., [address] Eosinophil abs 0.13 0.00 - 0.50 K/cumm NILSA Comment:Testing performed by : [address], [place]., [address] Basophil abs 0.04 0.00 - 0.10 K/cumm NILSA Comment:Testing performed by : [address] [address] Neutrophil pct 67.3 % [facility] Comment: Interpretive Data Percent cell count reference ranges are not reported, since discordance with absolute values may lead to misinterpretation of CBC data. Current Interpretive Data was last revised on 2017. Testing performed by: [address] [address] Imm gran pct 0.6 % [facility] Comment: Interpretive Data Percent cell count reference ranges are not reported, since discordance with absolute values may lead to misinterpretation of CBC data. Current Interpretive Data was last revised on 2017. Testing performed by: [address] [address] Lymphocyte pct 22.8 % [facility] Comment: Interpretive Data Percent cell count reference ranges are not reported, since discordance with absolute values may lead to misinterpretation of CBC data. Current Interpretive Data was last revised on 2017. Testing performed by: [address] [address] Monocyte pct 7.5 % [facility] Comment: Interpretive Data Percent cell count reference ranges are not reported, since discordance with absolute values may lead to misinterpretation of CBC data. Current Interpretive Data was last revised on 2017. Testing performed by: [address] [address] Eosinophil pct 1.4 % NILSA RODRIGES Comment: Interpretive Data Percent cell count reference ranges are not reported, since discordance with absolute values may lead to misinterpretation of CBC data. Current Interpretive Data was last revised on 2017. Testing performed by: [address] [address] Basophil pct 0.4 % NILSA Comment: Interpretive Data Percent cell count reference ranges are not reported, since discordance with absolute values may lead to misinterpretation of CBC data. Current Interpretive Data was last revised on 2017. Testing performed by: [address] [address] Blood 11/21/2024 4:15 AM CDT 11/21/2024 7:54 AM CDT us Notinfile Unknown LAB BLOOD ORDERABLES Final Res ult NILSA [facility] Department [place] [address] * (ABNORMAL) CBC with auto differential (11/21/2024 4:15 AM CDT) WBC 9.29 3.80 - 9.90 K/cumm NILSA RODRIGES Comment:Testing performed by : [address] [address] Hgb 8.9(L) 11.9 - 15.5 g/dL NILSA RODRIGES Comment:Testing performed by : [address] [address] Hct 28.2(L) 35.6 - 45.5 % NILSA RODRIGES Comment:Testing performed by : [address] [address] Plt 246 150 - 400 K/cumm NILSA RODRIGES Comment:Testing performed by : [address] [address] MPV 11.4 9.1 - 12.3 fL NILSA RODRIGES Comment:Testing performed by : [address] [address] RBC 2.72(L) 3.90 - 5.20 M/cumm NILSA RODRIGES Comment:Testing performed by : [address] [address] MCV 103.7(H) 81.3 - 96.4 fL NILSA RODRIGES Comment:Testing performed by : [address] [address] MCH 32.7 27.1 - 33.3 pg INLSA RODRIGES Comment:Testing performed by : [address] [address] MCHC 31.6(L) 32.3 - 35.7 g/dL NILSA RODRIGES Comment:Testing performed by : [address] [address] RDW CV 16.0(H) 11.1 - 14.9 % NILSA Comment:Testing performed by : [address] [address] RDW SD 59.4(H) 35.7 - 48.1 fL NILSA Comment:Testing performed by : [address] [address] NRBC abs 0.00 0.00 - 0.01 K/cumm NILSA Comment:Testing performed by : [address] [address] Blood 11/21/2024 4:15 AM CDT 11/21/2024 7:54 AM CDT us Notinfile Unknown LAB BLOOD ORDERABLES Final Res ult NILSA RODRIGES 0036 [facility] Department of Laboratories [place], [place] [id number] * (ABNORMAL) Comprehensive metabolic panel (11/21/2024 4:15 AM CDT) Sodium 135 135 - 145 mmol/L NILSA RODRIGES Comment:Testing performed by : [address] [address] Potassium, pl 4.6 3.3 - 4.9 mmol/L NILSA RODRIGES Comment:Testing performed by : [address], [place]., [address] Chloride 100 97 - 110 mmol/L NILSA Comment:Testing performed by : [address], [place]., [address] CO2 22 22 - 32 mmol/L NILSA Comment:Testing performed by : [address], [place]., [address] Anion gap 13 2 - 15 mmol/L NILSA Comment:Testing performed by : [address], [place]., [address] BUN 62(H) 6 - 25 mg/dL [facility] Comment:Testing performed by : [address], [place]., [address] Creatinine 5.57(H) 0.60 - 1.10 mg/dL NILSA Comment:Testing performed by : [address], [place]., [address] Glucose 148 70 - 199 mg/dL [facility]ELLEN Comment: Interpretive Data Fasting glucose >/= 126 [...] last revised 2022. Testing performed by: [address] [address] Calcium 9.5 8.5 - 10.3 mg/dL NILSA Comment:Testing performed by : [address] [address] Bilirubin, total <0.2 0.1 - 1.2 mg/dL NILSA Comment:Testing performed by : [address], [place]., [address] Protein, pl 6.7 6.5 - 8.5 g/dL NILSA Comment:Testing performed by : [address] [address] Albumin 3.5 3.5 - 5.0 g/dL NILSA Comment:Testing performed by : [address] [address] Alk phos 120 40 - 130 Units/L NILSA Comment:Testing performed by : [address] [address] ALT 15 7 - 45 Units/L NILSA Comment:Testing performed by : [address] [address] AST 16 10 - 45 Units/L NILSA Comment:Testing performed by : [address] [address] Blood 11/21/2024 4:15 AM CDT 11/21/2024 7:54 AM CDT us Notinfile Unknown LAB BLOOD ORDERABLES Final Res ult Performing Organization Address City/[facility]/ZIP Co de Phone Number NILSA [facility] [place] [address] * Hepatitis B core antibody, total Blood (11/15/2024 5:15 AM CDT) Pathologist [facility] Hep B core IgG/IgM Nonreactive Nonreactive NILSA Comment:Testing performed by : [facility], [address] [facility], [place]., [address] Blood 11/15/2024 5:15 AM CDT 11/15/2024 11:24 AM CDT us Notinfile Unknown LAB MICROBIOLOGY - GENERAL ORD ERABLES Final Result CARLOS ENRIQUE[address] [place] [address] * Hepatitis B Surface Antigen Blood (11/15/2024 5:15 AM CDT) Pathologist [facility] HepBsAg Nonreactive Nonreactive NILSA Blood 11/15/2024 5:15 AM CDT 11/15/2024 12:58 PM CDT us Notinfile Unknown LAB MICROBIOLOGY - GENERAL ORD ERABLES Final Result Performing Organization Address [facility] Co de Phone Number NILSA RODRIGES [address] [facility] [employer] [place] [address] * (ABNORMAL) eGFR (11/14/2024 1:00 PM CDT) [...] last reviewed 2021. Testing performed by: [address] [address] Blood 11/14/2024 1:00 PM CDT 11/14/2024 5:20 PM CDT us Notinfile Unknown LAB BLOOD ORDERABLES Final Res ult Performing Organization Address City/[facility]/ZIP Co de Phone Number NILSA 5259 [facility] [place] [address] * Differential, auto (11/14/2024 1:00 PM CDT) Neutrophil abs 6.30 1.50 - 6.50 K/cumm NILSA Comment:Testing performed by : [address] [place] [address] Imm gran abs 0.05 0.00 - 0.10 K/cumm [facility] Comment:Testing performed by : [address] [address] Lymphocyte abs 2.83 0.80 - 3.30 K/cumm [facility] Comment:Testing performed by : [address] [address] Monocyte abs 0.71 0.20 - 0.80 K/cumm [facility] Comment:Testing performed by : [address] [address] Eosinophil abs 0.15 0.00 - 0.50 K/cumm [facility] Comment:Testing performed by : [address] [address] Basophil abs 0.04 0.00 - 0.10 K/cumm [facility] Comment:Testing performed by : [address] [address] Neutrophil pct 62.5 % [facility] Comment: Interpretive Data Percent cell count reference ranges are not reported, since discordance with absolute values may lead to misinterpretation of CBC data. Current Interpretive Data was last revised on 2017. Testing performed by: [address] [address] Imm gran pct 0.5 % [facility] Comment: Interpretive Data Percent cell count reference ranges are not reported, since discordance with absolute values may lead to misinterpretation of CBC data. Current Interpretive Data was last revised on 2017. Testing performed by: [address] [address] Lymphocyte pct 28.1 % [facility] Comment: Interpretive Data Percent cell count reference ranges are not reported, since discordance with absolute values may lead to misinterpretation of CBC data. Current Interpretive Data was last revised on 2017. Testing performed by: [address] [address] Monocyte pct 7.0 % [facility] Comment: Interpretive Data Percent cell count reference ranges are not reported, since discordance with absolute values may lead to misinterpretation of CBC data. Current Interpretive Data was last revised on 2017. Testing performed by: [address] [address] Eosinophil pct 1.5 % NILSA RODRIGES Comment: Interpretive Data Percent cell count reference ranges are not reported, since discordance with absolute values may lead to misinterpretation of CBC data. Current Interpretive Data was last revised on 2017. Testing performed by: [address] [address] Basophil pct 0.4 % NILSA RODRIGES Comment: Interpretive Data Percent cell count reference ranges are not reported, since discordance with absolute values may lead to misinterpretation of CBC data. Current Interpretive Data was last revised on 2017. Testing performed by: [address] [address] Blood 11/14/2024 1:00 PM CDT 11/14/2024 5:20 PM CDT us Notinfile Unknown LAB BLOOD ORDERABLES Final Res ult NILSA [facility] Department of Laboratories [place], [place] [id number] * (ABNORMAL) CBC with auto differential (11/14/2024 1:00 PM CDT) WBC 10.08(H) 3.80 - 9.90 K/cumm NILSA RODRIGES Comment:Testing performed by : [address] [address] Hgb 9.4(L) 11.9 - 15.5 g/dL NILSA RODRIGES Comment:Testing performed by : [address] [address] Hct 30.5(L) 35.6 - 45.5 % NILSA RODRIGES Comment:Testing performed by : [address] [address] Plt 297 150 - 400 K/cumm NILSA RODRIGES Comment:Testing performed by : [address] [address] MPV 10.4 9.1 - 12.3 fL NILSA RODRIGES Comment:Testing performed by : [facility], [address] [place] [address]., [address] RBC 2.84(L) 3.90 - 5.20 M/cumm NILSA RODRIGES Comment:Testing performed by : [address] [address] MCV 107.4(H) 81.3 - 96.4 fL NILSA RODRIGES Comment:Testing performed by : [address] [address] MCH 33.1 27.1 - 33.3 pg NILSA RODRIGES Comment:Testing performed by : [address] [address] MCHC 30.8(L) 32.3 - 35.7 g/dL NILSA RODRIGES Comment:Testing performed by : [address] [address] RDW CV 16.1(H) 11.1 - 14.9 % NILSA Comment:Testing performed by : [address], [address] RDW SD 58.9(H) 35.7 - 48.1 fL NILSA Comment:Testing performed by : [address] [address] NRBC abs 0.14(H) 0.00 - 0.01 K/cumm NILSA Comment:Testing performed by : [address] [address] Blood 11/14/2024 1:00 PM CDT 11/14/2024 5:20 PM CDT us Notinfile Unknown LAB BLOOD ORDERABLES Final Res ult NILSA RODRIGES 0520 [facility] Department [place] [address] * Hepatitis B surface antibody (immune status) Blood (11/14/2024 1:00 PM CDT) HBsAb (immune status) Reactive NILSA RODRIGES Comment: Interpretive Data Nonreactive: This result is [...] (immune status) index 804.0 mIUnits/m L NILSA RODRIGES Blood 11/14/2024 1:00 PM CDT 11/14/2024 6:22 PM CDT us Notinfile Unknown LAB MICROBIOLOGY - GENERAL ORD ERABLES Final Result NILSA RODRIGES 4500 [facility] Department [place] [address] * (ABNORMAL) Comprehensive metabolic panel (11/14/2024 1:00 PM CDT) Sodium 138 135 - 145 mmol/L NILSA Comment:Testing performed by : [address] [address] Potassium, pl 3.9 3.3 - 4.9 mmol/L NILSA Comment:Testing performed by : [address] [address] Chloride 101 97 - 110 mmol/L NILSA Comment:Testing performed by : [address] [address] CO2 22 22 - 32 mmol/L NILSA Comment:Testing performed by : [address] [address] Anion gap 15 2 - 15 mmol/L NILSA Comment:Testing performed by : [address] [address] BUN 52(H) 6 - 25 mg/dL NILSA Comment:Testing performed by : [address] [address] Creatinine 5.47(H) 0.60 - 1.10 mg/dL NILSA Comment:Testing performed by : [address] [address] Glucose 136 70 - 199 mg/dL NILSA [...] last revised 2022. Testing performed by: [address] [address] Calcium 9.8 8.5 - 10.3 mg/dL NILSA Comment:Testing performed by : [address] [address] Bilirubin, total 0.2 0.1 - 1.2 mg/dL [facility] Comment:Testing performed by : [address] [address] Protein, pl 7.5 6.5 - 8.5 g/dL [facility] Comment:Testing performed by : [address] [address] Albumin 3.9 3.5 - 5.0 g/dL [facility] Comment:Testing performed by : [address] [address] Alk phos 128 40 - 130 Units/L [facility]ELLEN Comment:Testing performed by : [address] [address] ALT 24 7 - 45 Units/L [facility]ELLEN Comment:Testing performed by : [address] [address] AST 18 10 - 45 Units/L [facility]ELLEN Comment:Testing performed by : [address] [address] Blood 11/14/2024 1:00 PM CDT 11/14/2024 5:20 PM CDT us Notinfile Unknown LAB BLOOD ORDERABLES Final Res ult Performing Organization Address [facility] de Phone Number NILSA [address] [facility] [place] [address] * (ABNORMAL) eGFR (11/13/2024 5:35 AM CDT) eGFR 11(L) >=60 mL/min/1. 73 m2 NILSA Comment: Interpretive [...] last reviewed 2021. Testing performed by: [address] [address] Blood 11/13/2024 5:35 AM CDT 11/13/2024 8:55 AM CDT us Notinfile Unknown LAB BLOOD ORDERABLES Final Res ult Performing Organization Address [facility] Co de Phone Number [facility] [address] [facility] [employer] [place], [place] [id number] * (ABNORMAL) CBC with auto differential (11/13/2024 5:35 AM CDT) WBC 9.10 3.80 - 9.90 K/cumm NILSA Comment:Testing performed by : [address] [address] Hgb 8.9(L) 11.9 - 15.5 g/dL NILSA Comment:Testing performed by : [address] [address] Hct 28.4(L) 35.6 - 45.5 % NILSA Comment:Testing performed by : [address] [address] Plt 270 150 - 400 K/cumm NILSA Comment:Testing performed by : [address] [address] MPV 10.3 9.1 - 12.3 fL NILSA Comment:Testing performed by : [address] [address] RBC 2.70(L) 3.90 - 5.20 M/cumm NILSA Comment:Testing performed by : [address] [address] MCV 105.2(H) 81.3 - 96.4 fL NILSA Comment:Testing performed by : [address] [address] MCH 33.0 27.1 - 33.3 pg NILSA Comment:Testing performed by : [address] [address] MCHC 31.3(L) 32.3 - 35.7 g/dL NILSA Comment:Testing performed by : [address] [address] RDW CV 15.9(H) 11.1 - 14.9 % NILSA Comment:Testing performed by : [address] [address] RDW SD 57.1(H) 35.7 - 48.1 fL NILSA Comment:Testing performed by : [address] [address] NRBC abs 0.33(H) 0.00 - 0.01 K/cumm NILSA Comment:Testing performed by : [address] [address] Blood 11/13/2024 5:35 AM CDT 11/13/2024 8:55 AM CDT us Notinfile Unknown LAB BLOOD ORDERABLES Final Res ult NILSA 4915 [facility] Department [place] [address] * (ABNORMAL) Manual Differential (11/13/2024 5:35 AM CDT) Differential Manual NILSA Comment:Testing performed by : [address] [address] Cells Counted 100 NILSA Comment:Testing performed by : [address] [address] Neutrophil abs 5.46 1.50 - 6.50 K/cumm NILSA Comment:Testing performed by : [address] [address] Lymphocyte abs 2.73 0.80 - 3.30 K/cumm NILSA Comment:Testing performed by : [address] [address] Monocyte abs 0.82(H) 0.20 - 0.80 K/cumm NILSA Comment:Testing performed by : [address] [address] Eosinophil abs 0.09 0.00 - 0.50 K/cumm NILSA Comment:Testing performed by : [address] [address] Neutrophil pct 60.0 % NILSA Comment: Interpretive Data Percent cell count reference ranges are not reported, since discordance with absolute values may lead to misinterpretation of CBC data. Current Interpretive Data was last revised on 2017. Testing performed by: [address] [address] Lymphocyte pct 30.0 % NILSA Comment: Interpretive Data Percent cell count reference ranges are not reported, since discordance with absolute values may lead to misinterpretation of CBC data. Current Interpretive Data was last revised on 2017. Testing performed by: [address] [address] Monocyte pct 9.0 % NILSA Comment: Interpretive Data Percent cell count reference ranges are not reported, since discordance with absolute values may lead to misinterpretation of CBC data. Current Interpretive Data was last revised on 2017. Testing performed by: [address] [address] Eosinophil pct 1.0 % NILSA Comment: Interpretive Data Percent cell count reference ranges are not reported, since discordance with absolute values may lead to misinterpretation of CBC data. Current Interpretive Data was last revised on 2017. Testing performed by: [address] [address] RBC morphology Present(A) NILSA Comment:Testing performed by : [address] [address] Anisocytosis Moderate(A ) NILSA Comment:Testing performed by : [address] [address] Macrocytes 8-15/HPF(A ) NILSA Comment:Testing performed by : [address] [address] Schistocytes 1-2/HPF(A) NILSA Comment:Testing performed by : [address] [address] Platelet clumping Present(A) NILSA Comment:Testing performed by : [address] [address] Blood 11/13/2024 5:35 AM CDT 11/13/2024 8:55 AM CDT us Notinfile Unknown LAB BLOOD ORDERABLES Final Res ult NILSA [address] [facility] Department [place] [address] * (ABNORMAL) Comprehensive metabolic panel (11/13/2024 5:35 AM CDT) Sodium 139 135 - 145 mmol/L NILSA Comment:Testing performed by : [address] [address] Potassium, pl 4.2 3.3 - 4.9 mmol/L NILSA Comment:Testing performed by : [address] [address] Chloride 102 97 - 110 mmol/L NILSA Comment:Testing performed by : [address] [address] CO2 25 22 - 32 mmol/L NILSA Comment:Testing performed by : [address] [address] Anion gap 12 2 - 15 mmol/L NILSA Comment:Testing performed by : [address], [place]., [address] BUN 30(H) 6 - 25 mg/dL NILSA Comment:Testing performed by : [address] [address] Creatinine 4.07(H) 0.60 - 1.10 mg/dL NILSA Comment:Testing performed by : [address] [address] Glucose 144 70 - 199 mg/dL NILSA [...] last revised 2022. Testing performed by: [address] [address] Calcium 9.4 8.5 - 10.3 mg/dL NILSA Comment:Testing performed by : [address] [address] Bilirubin, total 0.2 0.1 - 1.2 mg/dL NILSA Comment:Testing performed by : [address] [address] Protein, pl 7.0 6.5 - 8.5 g/dL NILSA Comment:Testing performed by : [address] [address] Albumin 3.7 3.5 - 5.0 g/dL NILSA Comment:Testing performed by : [address] [address] Alk phos 127 40 - 130 Units/L NILSA Comment:Testing performed by : [address] [address] ALT 21 7 - 45 Units/L NILSA Comment:Testing performed by : [address] [address] AST 22 10 - 45 Units/L NILSA Comment:Testing performed by : [address] [address] Blood 11/13/2024 5:35 AM CDT 11/13/2024 8:55 AM CDT us Notinfile Unknown LAB BLOOD ORDERABLES Final Res ult Performing Organization Address City/[facility]/ZIP Co de Phone Number [address] [place] [address] * POCT glucose (11/05/2024 11:49 AM CDT) [facility] Glucose, POC 187 70 - 199 mg/dL Glucose comment 1 RN/MD Notified [facility] Blood 11/05/2024 11:4 9 AM CDT 11/05/2024 11:49 AM CDT us Juan J Heller MD LAB POCT ORDERABLES - DEVICE Final Result Performing Organization Address City/[facility]/ZIP Co de Phone Number [address] [place] [address] * (ABNORMAL) eGFR (11/05/2024 6:52 AM CDT) [facility] eGFR 8(L) >=60 mL/min/1. 73 [...] NP LAB BLOOD ORDERABLES Fin al Result [facility] [address] [facility] Department [place] [address] * Differential, auto (11/05/2024 6:52 AM CDT) Pathologist [facility] Neutrophil abs 5.74 1.50 - 6.50 K/cumm Imm gran abs 0.05 0.00 - 0.10 K/cumm [facility] Lymphocyte abs 1.98 0.80 - 3.30 K/cumm [facility] Monocyte abs 0.73 0.20 - 0.80 K/cumm [facility] Eosinophil abs 0.13 0.00 - 0.50 K/cumm [facility] Basophil abs 0.03 0.00 - 0.10 K/cumm [facility] Neutrophil pct 66.3 % [facility] Comment: Interpretive Data Percent cell count reference ranges are not reported, since discordance with absolute values may lead to misinterpretation of CBC data. Current Interpretive Data was last revised on 2017. Imm gran pct 0.6 % [facility] Comment: Interpretive Data Percent cell count reference ranges are not reported, since discordance with absolute values may lead to misinterpretation of CBC data. Current Interpretive Data was last revised on 2017. Lymphocyte pct 22.9 % [facility] Comment: Interpretive Data Percent cell count reference ranges are not reported, since discordance with absolute values may lead to misinterpretation of CBC data. Current Interpretive Data was last revised on 2017. Monocyte pct 8.4 % [facility] Comment: Interpretive Data Percent cell count reference ranges are not reported, since discordance with absolute values may lead to misinterpretation of CBC data. Current Interpretive Data was last revised on 2017. Eosinophil pct 1.5 % [facility] Comment: Interpretive Data Percent cell count reference ranges are not reported, since discordance with absolute values may lead to misinterpretation of CBC data. Current Interpretive Data was last revised on 2017. Basophil pct 0.3 % [facility] Comment: Interpretive Data Percent cell count reference ranges are not reported, since discordance with absolute values may lead to misinterpretation of CBC data. Current Interpretive Data was last revised on 2017. Blood 11/05/2024 6:52 AM CDT 11/05/2024 7:12 AM CDT us Brad Sebastien Smallwood [employer] LAB BLOOD ORDERABLES Fin al Result [place] [address] [facility] Department [place] [address] * (ABNORMAL) CBC with auto differential (11/05/2024 6:52 AM CDT) WBC 8.66 3.80 - 9.90 K/cumm Hgb 8.6(L) 11.9 - 15.5 g/dL [facility] Hct 26.6(L) 35.6 - 45.5 % [facility] Plt 215 150 - 400 K/cumm [facility] MPV 10.4 9.1 - 12.3 fL [facility] RBC 2.60(L) 3.90 - 5.20 M/cumm [facility] MCV 102.3(H) 81.3 - 96.4 fL [facility] MCH 33.1 27.1 - 33.3 pg [facility] MCHC 32.3 32.3 - 35.7 g/dL [facility] RDW CV 13.8 11.1 - 14.9 % [facility] RDW SD 51.4(H) 35.7 - 48.1 fL [facility] NRBC abs 0.09(H) 0.00 - 0.01 K/cumm [facility] Blood 11/05/2024 6:52 AM CDT 11/05/2024 7:12 AM CDT us Brad Sebastien Smallwood [employer] LAB BLOOD ORDERABLES Fin al Result [facility] [address] [facility] Department [place] [address] * (ABNORMAL) Basic metabolic panel (11/05/2024 6:52 AM CDT) Sodium 135 135 - 145 mmol/L Potassium, pl 4.5 3.3 - 4.9 mmol/L [facility] Chloride 96(L) 97 - 110 mmol/L [facility] CO2 28 22 - 32 mmol/L [facility] Anion gap 11 2 - 15 mmol/L [facility] BUN 34(H) 6 - 25 mg/dL [facility] Creatinine 5.23(H) 0.60 - 1.10 mg/dL [facility] Glucose 145 70 - 199 mg/dL [facility] Comment: Interpretive Data Fasting glucose >/= 126 [...] 2022. Calcium 9.0 8.5 - 10.3 mg/dL [facility] Blood 11/05/2024 6:52 AM CDT 11/05/2024 7:12 AM CDT Bradmichael Dobbinsmargaret Smallwood [employer] LAB BLOOD ORDERABLES Fin al Result Performing Organization Address [facility] Co de Phone Number [address] [place] [address] * (ABNORMAL) POCT glucose (11/04/2024 9:22 PM CDT) Glucose, POC 223(H) 70 - 199 mg/dL Blood 11/04/2024 9:22 PM CDT 11/04/2024 9:22 PM CDT Juan J Heller MD LAB POCT ORDERABLES - DEVICE Final Result Performing Organization Address [facility] de Phone Number [address] [place] [address] * (ABNORMAL) POCT glucose (11/04/2024 4:33 PM CDT) Glucose, POC 240(H) 70 - 199 mg/dL Glucose comment 1 Use This Result [facility] Glucose comment 2 RN/MD Notified NILSA Blood 11/04/2024 4:33 PM CDT 11/04/2024 4:33 PM CDT Jaun J Heller MD LAB POCT ORDERABLES - DEVICE Final Result Performing Organization Address [facility] Co de Phone Number [address] [place] [address] * POCT glucose (11/04/2024 11:12 AM CDT) Glucose, POC 177 70 - 199 mg/dL Glucose comment 1 RN/MD Notified [facility] Blood 11/04/2024 11:1 2 AM CDT 11/04/2024 11:12 AM CDT Juan J Heller MD LAB POCT ORDERABLES - DEVICE Final Result Performing Organization Address City/[facility]/ZIP Co de Phone Number CARLOS ENRIQUE[address] [place] [address] * POCT glucose (11/04/2024 9:37 AM CDT) Glucose, POC 138 70 - 199 mg/dL Blood 11/04/2024 9:37 AM CDT 11/04/2024 9:37 AM CDT Juan J Heller MD LAB POCT ORDERABLES - DEVICE Final Result Performing Organization Address City/[facility] Co de Phone Number NILSA [address] [place] [address] * POCT glucose (11/04/2024 6:09 AM CDT) [facility] Glucose, POC 190 70 - 199 mg/dL Blood 11/04/2024 6:09 AM CDT 11/04/2024 6:09 AM CDT Juan J Heller MD LAB POCT ORDERABLES - DEVICE Final Result Performing Organization Address City/[facility] Co de Phone Number CARLOS ENRIQUE[address] [place] [address] * (ABNORMAL) eGFR (11/04/2024 4:16 AM CDT) [facility] eGFR 6(L) >=60 mL/min/1. 73 [...] 4:35 AM CDT us Brad Sebastien Smallwood [employer] LAB BLOOD ORDERABLES Fin al Result [place] [address] [facility] Department [place] [address] * Differential, auto (11/04/2024 4:16 AM CDT) Neutrophil abs 4.99 1.50 - 6.50 K/cumm Imm gran abs 0.05 0.00 - 0.10 K/cumm [facility] Lymphocyte abs 2.56 0.80 - 3.30 K/cumm [facility] Monocyte abs 0.70 0.20 - 0.80 K/cumm [facility] Eosinophil abs 0.15 0.00 - 0.50 K/cumm [facility] Basophil abs 0.03 0.00 - 0.10 K/cumm [facility] Neutrophil pct 58.7 % [facility] Comment: Interpretive Data Percent cell count reference ranges are not reported, since discordance with absolute values may lead to misinterpretation of CBC data. Current Interpretive Data was last revised on 2017. Imm gran pct 0.6 % [facility] Comment: Interpretive Data Percent cell count reference ranges are not reported, since discordance with absolute values may lead to misinterpretation of CBC data. Current Interpretive Data was last revised on 2017. Lymphocyte pct 30.2 % [facility] Comment: Interpretive Data Percent cell count reference ranges are not reported, since discordance with absolute values may lead to misinterpretation of CBC data. Current Interpretive Data was last revised on 2017. Monocyte pct 8.3 % [facility] Comment: Interpretive Data Percent cell count reference ranges are not reported, since discordance with absolute values may lead to misinterpretation of CBC data. Current Interpretive Data was last revised on 2017. Eosinophil pct 1.8 % [facility] Comment: Interpretive Data Percent cell count reference ranges are not reported, since discordance with absolute values may lead to misinterpretation of CBC data. Current Interpretive Data was last revised on 2017. Basophil pct 0.4 % [facility] Comment: Interpretive Data Percent cell count reference ranges are not reported, since discordance with absolute values may lead to misinterpretation of CBC data. Current Interpretive Data was last revised on 2017. Blood 11/04/2024 4:16 AM CDT 11/04/2024 4:35 AM CDT us Brad Sebastien Smallwood [employer] LAB BLOOD ORDERABLES Fin al Result [place] [id number] [facility] Department [place] [address] * (ABNORMAL) CBC with auto differential (11/04/2024 4:16 AM CDT) WBC 8.48 3.80 - 9.90 K/cumm Hgb 7.3(L) 11.9 - 15.5 g/dL [facility] Hct 22.2(L) 35.6 - 45.5 % [facility] Plt 196 150 - 400 K/cumm [facility] MPV 10.4 9.1 - 12.3 fL [facility] RBC 2.24(L) 3.90 - 5.20 M/cumm [facility] MCV 99.1(H) 81.3 - 96.4 fL [facility] MCH 32.6 27.1 - 33.3 pg [facility] MCHC 32.9 32.3 - 35.7 g/dL [facility] RDW CV 13.4 11.1 - 14.9 % [facility] RDW SD 48.3(H) 35.7 - 48.1 fL [facility] NRBC abs 0.02(H) 0.00 - 0.01 K/cumm [facility] Blood 11/04/2024 4:16 AM CDT 11/04/2024 4:35 AM CDT [facility] LAB BLOOD ORDERABLES Fin al Result NILSA [address] [facility] [place] [address] * (ABNORMAL) Basic metabolic panel (11/04/2024 4:16 AM CDT) [facility] Sodium 135 135 - 145 mmol/L Potassium, pl 4.7 3.3 - 4.9 mmol/L [facility] Chloride 95(L) 97 - 110 mmol/L [facility] CO2 25 22 - 32 mmol/L [facility] Anion gap 15 2 - 15 mmol/L [facility] BUN 57(H) 6 - 25 mg/dL [facility] Creatinine 6.58(H) 0.60 - 1.10 mg/dL [facility] Glucose 153 70 - 199 mg/dL [facility] Comment: Interpretive Data Fasting glucose >/= 126 [...] 2022. Calcium 8.3(L) 8.5 - 10.3 mg/dL [facility] Blood 11/04/2024 4:16 AM CDT 11/04/2024 4:35 AM CDT [facility] Sebastien Smallwood [employer] LAB BLOOD ORDERABLES Fin al Result Performing Organization Address [facility] Co de Phone Number NILSA [facility] [place] [address] * (ABNORMAL) POCT glucose (11/03/2024 8:27 PM CDT) Glucose, POC 222(H) 70 - 199 mg/dL Glucose comment 1 RN/ Notified [facility] Blood 11/03/2024 8:27 PM CDT 11/03/2024 8:27 PM CDT Juan J Heller MD LAB POCT ORDERABLES - DEVICE Final Result Performing Organization Address [facility] de Phone Number [address] [place] [address] * (ABNORMAL) POCT glucose (11/03/2024 3:45 PM CDT) Glucose, POC 217(H) 70 - 199 mg/dL Glucose comment 1 Use This Result [facility] Glucose comment 2 RN/ Notified [facility] Blood 11/03/2024 3:45 PM CDT 11/03/2024 3:45 PM CDT Juan J Heller MD LAB POCT ORDERABLES - DEVICE Final Result Performing Organization Address [facility] de Phone Number [address] [address] * MRI Brain WO Contrast (11/03/2024 1:17 [...] Hyperostosis frontalis interna. ORBITS: No acute abnormality. [place] ocular lenses replaced bilaterally. PARANASAL SINUSES AND MASTOIDS: Tiny focus of opacifying material in the dependent left sphenoid sinuses. Slight scattered fluid about the [id number]-left mastoid air cells. Scattered fluid OTHER: No other significant finding. IMPRESSION: Within the limitations of patient motion artifact, no acute intracranial process with chronic findings as above. THIS IS AN ELECTRONICALLY VERIFIED FINAL REPORT 11/03/2024 1:26 PM - Electronically signed by Redd Hendrickson M.D. CHANDA T: Report ID: [id number] Reading Location: [id number] Procedure Note Redd Hendrickson MD - 11/03/2024 EXAM DESCRIPTION: MRI BRAIN WO CONTRAST REASON FOR STUDY: Altered mental status of unspecified duration. Noprovision of focal neurologic deficits. No provided history of trauma or inciting and/or aggravating events. No provided past medical or surgical history. TECHNIQUE: Multiplanar imaging includes non-contrasted T1, T2, FLAIR, and diffusion with ADC map sequences. Additional sequence(s) sensitive Fillm. Images stored on PACS. Patient motion artifact [...] Hyperostosis frontalis interna. ORBITS: No acute abnormality. [place] ocular lenses replaced bilaterally. PARANASAL SINUSES AND MASTOIDS: Tiny focus of opacifying material in the dependent left sphenoid sinuses. Slight scattered fluid about the [id number]-[id number]-left mastoid air cells. Scattered fluid OTHER: No other significant finding. IMPRESSION: Within the limitations of patient motion artifact, no acute intracranial process with chronic findings as above. THIS IS AN ELECTRONICALLY VERIFIED FINAL REPORT 11/03/2024 1:26 PM - Electronically signed by Redd ARMAS T: Report ID: [id number] Reading Location: [id number] Juan J Heller MD IMG MRI PROCEDURES Final Result * (ABNORMAL) POCT glucose (11/03/2024 11:14 AM CDT) Glucose, POC 259(H) 70 - 199 mg/dL Glucose comment 1 Use This Result [facility] Glucose comment 2 RN/MD Notified [facility] RODRIG[facility] Blood 11/03/2024 11:1 4 AM CDT 11/03/2024 11:14 AM CDT Juan J Heller MD LAB POCT ORDERABLES - DEVICE Final Result Performing Organization Address City/[facility]/ZIP Co de Phone Number NILSA [address] [address] * POCT glucose (11/03/2024 7:17 AM CDT) Glucose, POC 139 70 - 199 mg/dL Glucose comment 1 Use This Result [facility] Glucose comment 2 RN/MD Notified [facility] Blood 11/03/2024 7:17 AM CDT 11/03/2024 7:17 AM CDT Juan J Heller MD LAB POCT ORDERABLES - DEVICE Final Result Performing Organization Address City/[facility] Co de Phone Number CARLOS ENRI[address] [address] * (ABNORMAL) eGFR (11/03/2024 2:33 AM CDT) [facility] Signature eGFR 10(L) >=60 mL/min/1. 73 m2 Comment: [...] 3:06 AM CDT us Brad Sebastien Smallwood [employer] LAB BLOOD ORDERABLES Fin al Result NILSA [address] [facility] Department [place] [address] * Differential, auto (11/03/2024 2:33 AM CDT) Pathologist [facility] Neutrophil abs 5.20 1.50 - 6.50 K/cumm Imm gran abs 0.03 0.00 - 0.10 K/cumm [facility] Lymphocyte abs 2.47 0.80 - 3.30 K/cumm [facility] Monocyte abs 0.66 0.20 - 0.80 K/cumm [facility] Eosinophil abs 0.14 0.00 - 0.50 K/cumm [facility] Basophil abs 0.04 0.00 - 0.10 K/cumm [facility] Neutrophil pct 60.9 % [facility] Comment: Interpretive Data Percent cell count reference ranges are not reported, since discordance with absolute values may lead to misinterpretation of CBC data. Current Interpretive Data was last revised on 2017. Imm gran pct 0.4 % [facility] Comment: Interpretive Data Percent cell count reference ranges are not reported, since discordance with absolute values may lead to misinterpretation of CBC data. Current Interpretive Data was last revised on 2017. Lymphocyte pct 28.9 % [facility] Comment: Interpretive Data Percent cell count reference ranges are not reported, since discordance with absolute values may lead to misinterpretation of CBC data. Current Interpretive Data was last revised on 2017. Monocyte pct 7.7 % [facility] Comment: Interpretive Data Percent cell count reference ranges are not reported, since discordance with absolute values may lead to misinterpretation of CBC data. Current Interpretive Data was last revised on 2017. Eosinophil pct 1.6 % [facility] Comment: Interpretive Data Percent cell count reference ranges are not reported, since discordance with absolute values may lead to misinterpretation of CBC data. Current Interpretive Data was last revised on 2017. Basophil pct 0.5 % [facility] Comment: Interpretive Data Percent cell count reference ranges are not reported, since discordance with absolute values may lead to misinterpretation of CBC data. Current Interpretive Data was last revised on 2017. Blood 11/03/2024 2:33 AM CDT 11/03/2024 3:03 AM CDT [facility] [place] [facility] [employer] LAB BLOOD ORDERABLES Fin al Result Performing Organization Address [facility] Co de Phone Number NILSA [address] [employer] [place] [address] * (ABNORMAL) CBC with auto differential (11/03/2024 2:33 AM CDT) WBC 8.54 3.80 - 9.90 K/cumm Hgb 7.4(L) 11.9 - 15.5 g/dL [facility] Hct 22.8(L) 35.6 - 45.5 % [facility] Plt 195 150 - 400 K/cumm [facility] MPV 10.8 9.1 - 12.3 fL [facility] RBC 2.25(L) 3.90 - 5.20 M/cumm [facility] MCV 101.3(H) 81.3 - 96.4 fL [facility] MCH 32.9 27.1 - 33.3 pg [facility] MCHC 32.5 32.3 - 35.7 g/dL [facility] RDW CV 13.3 11.1 - 14.9 % [facility] RDW SD 49.3(H) 35.7 - 48.1 fL [facility] NRBC abs 0.00 0.00 - 0.01 K/cumm [facility] Blood 11/03/2024 2:3 3 AM CDT 11/03/2024 3:03 AM CDT [employer] LAB BLOOD ORDERABLES Fin al Result Performing Organization Address [facility] Co de Phone Number NILSA [address] [place] [address] * (ABNORMAL) Basic metabolic panel (11/03/2024 2:33 AM CDT) Sodium 135 135 - 145 mmol/L Potassium, pl 4.1 3.3 - 4.9 mmol/L [facility] Chloride 95(L) 97 - 110 mmol/L [facility] CO2 27 22 - 32 mmol/L [facility] Anion gap 13 2 - 15 mmol/L [facility] BUN 38(H) 6 - 25 mg/dL [facility] Creatinine 4.56(H) 0.60 - 1.10 mg/dL [facility] Glucose 131 70 - 199 mg/dL [facility] Comment: Interpretive Data Fasting glucose >/= 126 [...] 2022. Calcium 8.0(L) 8.5 - 10.3 mg/dL [facility] Blood 11/03/2024 2:33 AM CDT 11/03/2024 3:03 AM CDT us Brad Smallwood NP LAB BLOOD ORDERABLES Fin al Result Performing Organization Address City/[facility] Co de Phone Number [facility] [address] [facility] Department [place] [address] * POCT glucose (11/02/2024 9:40 PM CDT) Glucose, POC 157 70 - 199 mg/dL Glucose comment 1 RN/MD Notified [facility] Blood 11/02/2024 9:40 PM CDT 11/02/2024 9:40 PM CDT Juan J Heller MD LAB POCT ORDERABLES - DEVICE Final Result Performing Organization Address City/State/[facility] Co de Phone Number NILSA [address] [place] [address] * Ammonia (11/02/2024 6:56 PM CDT) Ammonia 24 <=50 mcmol/L Comment: Please note on 2023 the unit of measure changed from mcg/dL to mcmol/L. Current Interpretive Data was last revised on 2023. Blood 11/02/2024 6:56 PM CDT 11/02/2024 7:04 PM CDT Juan J Heller MD LAB BLOOD ORDERABLE S Final Result Performing Organization Address [facility] Co de Phone Number NILSA [address] [place] [address] * CT Head WO Contrast (11/02/2024 6:31 [...] Salvador Bronson M.D. KT T: Report ID: [id number] Reading Location: [id number] Procedure Note Salvador Bronson MD - 11/02/2024 [...] PM - Electronically signed by Salvador Bronson M.D., KT T: Report ID: [id number] Reading Location: [id number] [facility] CT PROCEDURES F inal Result * (ABNORMAL) POC Blood Gas and Chemistries, Arterial - (11/02/2024 6:17 PM CDT) pH, art POC 7.45 7.35 - 7.45 pCO2, art POC 40 35 - 45 mmHg [facility] pO2, art POC 95 83 - 108 mmHg [facility] HCO3, art (Calc) POC 28 20 - 30 mmol/L [facility] Base excess, art POC 4 mmol/L [facility] Comment: Interpretive Data No reference range established. Current interpretive data was last revised 2020. O2 Sat, art (Calc) POC 95 94 - 98 % [facility] Oxy Hgb, art POC 95.4(H) 90.0 - 95.0 % [facility] Met Hgb, art POC 0.0 0.0 - 1.9 % [facility] Carboxy Hgb, art POC 0.0 0.0 - 2.9 % [facility] Hemoglobin, art POC 8.8(L) 11.9 - 15.5 g/dL [facility] Blood 11/02/2024 6:17 PM CDT 11/02/2024 6:17 PM CDT Juan J Heller MD LAB POCT ORDERABLES - DEVICE Final Result Performing Organization Address City/[facility] Co de Phone Number [address] [place] [address] * POCT glucose (11/02/2024 5:13 PM CDT) Glucose, POC 150 70 - 199 mg/dL Glucose comment 1 RN/ Notified [facility] Blood 11/02/2024 5:13 PM CDT 11/02/2024 5:13 PM CDT Juan J Heller MD LAB POCT ORDERABLES - DEVICE Final Result Performing Organization Address [facility] de Phone Number [address] [place] [address] * POCT glucose (11/02/2024 12:32 PM CDT) Glucose, POC 173 70 - 199 mg/dL Glucose comment 1 RN/ Notified [facility] Blood 11/02/2024 12:3 2 PM CDT 11/02/2024 12:32 PM CDT Juan J Heller MD LAB POCT ORDERABLES - DEVICE Final Result Performing Organization Address City/[facility] Co de Phone Number [address] [place] [address] * POCT glucose (11/02/2024 7:50 AM CDT) Glucose, POC 184 70 - 199 mg/dL Glucose comment 1 RN/ Notified [facility] Blood 11/02/2024 7:50 AM CDT 11/02/2024 7:50 AM CDT Juan J Heller MD LAB POCT ORDERABLES - DEVICE Final Result Performing Organization Address [facility] Co de Phone Number [address] [place] [address] * Hepatitis B surface antibody (immune status) [...] HBsAb (immune status) index 628.0 mIUnits/m L [facility] Blood 11/02/2024 7:14 AM CDT 11/02/2024 7:32 AM CDT Rohan Funes MD LAB MICROBIOLOGY - GENERAL ORDERABLES Final Result Performing Organization Address [facility] Co de Phone Number [address] [place] [address] * Hepatitis B Surface Antigen Blood (11/02/2024 7:14 AM CDT) HepBsAg Nonreactive Nonreactive Blood 11/02/2024 7:14 AM CDT 11/02/2024 7:32 AM CDT Rohan Funes MD LAB MICROBIOLOGY - GENERAL ORDERABLES Final Result Performing Organization Address [facility] Co de Phone Number [address] [place] [address] * (ABNORMAL) eGFR (11/02/2024 3:48 AM CDT) [facility] eGFR 8(L) >=60 mL/min/1. 73 [...] 4:01 AM CDT us Brad Sebastien Smallwood NP LAB BLOOD ORDERABLES Fin al Result [facility] [address] [facility] Department [place] [address] * Differential, auto (11/02/2024 3:48 AM CDT) [facility] Neutrophil abs 5.44 1.50 - 6.50 K/cumm Imm gran abs 0.03 0.00 - 0.10 K/cumm [facility] Lymphocyte abs 2.16 0.80 - 3.30 K/cumm [facility] Monocyte abs 0.62 0.20 - 0.80 K/cumm [facility] Eosinophil abs 0.12 0.00 - 0.50 K/cumm [facility] Basophil abs 0.02 0.00 - 0.10 K/cumm [facility] Neutrophil pct 64.9 % [facility] Comment: Interpretive Data Percent cell count reference ranges are not reported, since discordance with absolute values may lead to misinterpretation of CBC data. Current Interpretive Data was last revised on 2017. Imm gran pct 0.4 % [facility] Comment: Interpretive Data Percent cell count reference ranges are not reported, since discordance with absolute values may lead to misinterpretation of CBC data. Current Interpretive Data was last revised on 2017. Lymphocyte pct 25.7 % [facility] Comment: Interpretive Data Percent cell count reference ranges are not reported, since discordance with absolute values may lead to misinterpretation of CBC data. Current Interpretive Data was last revised on 2017. Monocyte pct 7.4 % [facility] Comment: Interpretive Data Percent cell count reference ranges are not reported, since discordance with absolute values may lead to misinterpretation of CBC data. Current Interpretive Data was last revised on 2017. Eosinophil pct 1.4 % [facility] Comment: Interpretive Data Percent cell count reference ranges are not reported, since discordance with absolute values may lead to misinterpretation of CBC data. Current Interpretive Data was last revised on 2017. Basophil pct 0.2 % [facility] Comment: Interpretive Data Percent cell count reference ranges are not reported, since discordance with absolute values may lead to misinterpretation of CBC data. Current Interpretive Data was last revised on 2017. Blood 11/02/2024 3:48 AM CDT 11/02/2024 4:01 AM CDT us Brad Sebastien Smallwood [employer] LAB BLOOD ORDERABLES Fin al Result [facility] [address] [facility] Department [place] [address] * (ABNORMAL) CBC with auto differential (11/02/2024 3:48 AM CDT) WBC 8.39 3.80 - 9.90 K/cumm Hgb 7.2(L) 11.9 - 15.5 g/dL [facility] Hct 22.3(L) 35.6 - 45.5 % [facility] Plt 186 150 - 400 K/cumm [facility] MPV 10.9 9.1 - 12.3 fL [facility] RBC 2.20(L) 3.90 - 5.20 M/cumm [facility] MCV 101.4(H) 81.3 - 96.4 fL [facility] MCH 32.7 27.1 - 33.3 pg [facility] MCHC 32.3 32.3 - 35.7 g/dL [facility] RDW CV 13.5 11.1 - 14.9 % [facility] RDW SD 49.7(H) 35.7 - 48.1 fL [facility] NRBC abs 0.00 0.00 - 0.01 K/cumm [facility] Blood 11/02/2024 3:48 AM CDT 11/02/2024 4:01 AM CDT [facility] [employer] LAB BLOOD ORDERABLES Fin al Result Performing Organization Address [facility] de Phone Number [address] [place] [address] * Folate (11/02/2024 3:48 AM CDT) [facility] Folic acid 7.0 >=5.0 ng/mL Blood 11/02/2024 3:48 AM CDT 11/02/2024 4:01 AM CDT [facility] [employer] LAB BLOOD ORDERABLES Fin al Result Performing Organization Address [facility] de Phone Number [address] [place] [address] * (ABNORMAL) Basic metabolic panel (11/02/2024 3:48 AM CDT) [facility] Sodium 135 135 - 145 mmol/L Potassium, pl 4.6 3.3 - 4.9 mmol/L [facility] Chloride 99 97 - 110 mmol/L [facility] CO2 24 22 - 32 mmol/L [facility] Anion gap 12 2 - 15 mmol/L [facility] BUN 64(H) 6 - 25 mg/dL [facility] Creatinine 5.43(H) 0.60 - 1.10 mg/dL [facility] Glucose 227(H) 70 - 199 mg/dL [facility] Comment: Interpretive Data Fasting glucose >/= 126 [...] 2022. Calcium 9.0 8.5 - 10.3 mg/dL [facility] Blood 11/02/2024 3:48 AM CDT 11/02/2024 4:01 AM CDT [facility] LAB BLOOD ORDERABLES Fin al Result Performing Organization Address City/[facility] Co de Phone Number [address] [place] [address] * Lactate (11/01/2024 10:05 PM CDT) Pathologist [facility] Lactate 1.4 0.7 - 2.0 mmol/L Blood 11/01/2024 10:0 5 PM CDT 11/01/2024 10:15 PM CDT [facility] LAB BLOOD ORDERABLES Fin al Result [address] [place] [address] * (ABNORMAL) Erythrocyte sedimentation rate (11/01/2024 10:05 PM CDT) Erythrocyte sedimentation rate 43(H) 1 - 30 mm/hr Blood 11/01/2024 10:0 5 PM CDT 11/01/2024 10:15 PM CDT Brad Tabernero Rufin [employer] LAB BLOOD ORDERABLES Fin al Result Performing Organization Address City/[facility] Co de Phone Number [address] EN[address] [address] * CRP (acute phase) (11/01/2024 10:05 PM CDT) CRP 3.6 <=10.0 mg/L Blood 11/01/2024 10:0 5 PM CDT 11/01/2024 10:15 PM CDT [facility] [employer] LAB BLOOD ORDERABLES Fin al Result Performing Organization Address [facility] de Phone Number [address] [address] * Phosphorus (11/01/2024 10:05 PM CDT) Phosphorus, pl 4.3 2.3 - 4.5 mg/dL Blood 11/01/2024 10:0 5 PM CDT 11/01/2024 10:15 PM CDT [facility] Rufin [employer] LAB BLOOD ORDERABLES Fin al Result Performing Organization Address [facility] Co de Phone Number [address] [address] * Magnesium (11/01/2024 10:05 PM CDT) Magnesium 1.5 1.4 - 2.5 mg/dL Blood 11/01/2024 10:0 5 PM CDT 11/01/2024 10:15 PM CDT [facility] Rufin [employer] LAB BLOOD ORDERABLES Fin al Result Performing Organization Address City/[facility] Co de Phone Number [address] [address] * (ABNORMAL) Hemoglobin A1c (11/01/2024 10:05 PM CDT) [facility] Hgb A1C 7.1(H) 4.0 - 5.6 % Estimated Average Glucose 157 mg/dL [facility] Comment: The ADA recommends reporting an estimated Average Glucose (eAG) with all Hemoglobin A1c results using the equation derived from a study of 507 normal and diabetic adults. Minority populations were underrepresented and children were not included. (Diabetes Care 31:4333-5238, 2008). The eAG is not equivalent to a fasting glucose. Blood 11/01/2024 10:0 5 PM CDT 11/01/2024 10:15 PM CDT [facility] LAB BLOOD ORDERABLES Fin al Result Performing Organization Address [facility] de Phone Number [address] [address] * Vitamin B12 (11/01/2024 10:05 PM CDT) [facility] Vitamin B12 584 230 - 1,250 pg/mL Blood 11/01/2024 10:0 5 PM CDT 11/01/2024 10:15 PM CDT [facility] LAB BLOOD ORDERABLES Fin al Result Performing Organization Address City/[facility] Co de Phone Number [address] [address] * (ABNORMAL) Lipid panel (11/01/2024 10:05 PM CDT) [facility] Cholesterol 98 30 - 199 mg/dL Comment: [...] mg/dL High: >160 mg/dL Calculated using the Coles LDL-C estimating equation. This equation was implemented on 2024. Prior to this date LDL-C was estimated using the Friedewald equation. Literature References: 1. Expert Panel on Integrated Guidelines for Cardiovascular Health and Risk Reduction in Children and Adolescents. Pediatrics 2010;128:S213 2. NCEP Expert Panel. Circulation 2004;110:227 3. Sanket M et al. SAVITA Cardiol. 2019October 20;5(5):540-548. doi: 10.1001/jamacardio.2020.0013 Current Interpretive Data was last revised on 2024. Non-HDL Cholesterol 60 mg/dL [facility] Comment: Interpretive Data Ages < or = [...] last revised on 2018. Chol/HDL ratio 3 [facility] Blood 11/01/2024 10:0 5 PM CDT 11/01/2024 10:15 PM CDT us Brad Smallwood NP LAB BLOOD ORDERABLES Fin al Result Performing Organization Address City/[facility]/ZIP Co de Phone Number [address] [place] [address] * (ABNORMAL) POCT glucose (11/01/2024 9:59 PM CDT) [facility] Glucose, POC 217(H) 70 - 199 mg/dL Glucose comment 1 Use This Result [facility] Glucose comment 2 RN/MD Notified [facility] Blood 11/01/2024 9:59 PM CDT 11/01/2024 9:59 PM CDT us Des Lopez MD LAB POCT ORDERABLES - DEVICE F inal Result Performing Organization Address City/[facility]/ZIP Co de Phone Number [address] [place] [address] * (ABNORMAL) Urinalysis reflex to microscopic and culture Urine (11/01/2024 7:23 PM CDT) Color, ur Straw Yellow Clarity, ur Clear Clear [facility] Specific gravity, ur 1.007 1.003 - 1.030 [facility] pH, urine 7.5 [facility] Comment: Interpretive Data U rine pH is affected by diet, medications, systemic acid-base disturbances, and renal tubular function. pH may affect urinary stone formation. For example, urine pH below 6.0 may help reduce the tendency for calcium phosphate stones and pH greater than 6.0 may reduce the tendency for uric acid stone formation. Source: [facility] Current Interpretive Data was last revised on 2017 Protein, ur ql 1+(A) Negative [facility] Glucose, ur ql 3+(A) Negative [facility] Ketones, ur Negative Negative [facility] Bilirubin, ur Negative Negative [facility] Blood, ur Negative Negative [facility] Urobilinogen, ur <2.0 <2.0 mg/dL [facility] Nitrite, ur Negative Negative [facility] Leukocyte esterase, ur 4+(A) Negative [facility] UA reflex comment Reflex to microscopic UA will be performed. [facility] Urine 11/01/2024 7:23 PM CDT 11/01/2024 7:37 PM CDT us Tahmina Palencia MD LAB MICROBIOLOGY - GEN ERAL ORDERABLES Final Result [facility] [address] [facility] Department [place] [address] * (ABNORMAL) Urinalysis, microscopic only (11/01/2024 7:23 PM CDT) WBC, ur >50(A) 0 - 5 /HPF RBC, ur 0-2 0 - 2 /HPF [facility] Epithelial cells, squamous, ur 1-5 0 - 5 /HPF [facility] Culture Reflex Comment Reflex to urine culture will be performed. [facility] Urine 11/01/2024 7:23 PM CDT 11/01/2024 7:37 PM CDT us Tahmina Palencia MD LAB URINE ORDERABLES F inal Result Performing Organization Address City/[facility]/ZIP Co de Phone Number NILSA [address] [place] [address] * (ABNORMAL) Urine culture Urine (11/01/2024 7:23 PM CDT) Report Final Report: Greater than or equal to 100,000 colonies/mL of Proteus mirabilis Plus growth of clinically insignificant bacterial shruti. (.) Comment:Testing performed by : [facility], [address] [place]., [address] Organism PROTEUS MIRABILIS NILSA Organism PLUS GROWTH OF CLINICALLY INSIGNIFICANT SHRUTI. NILSA Urine 11/01/2024 7:23 PM CDT 11/02/2024 12:58 AM CDT Narrative NILSA - 11/04/2024 10:48 AM CDT Urine culture reflexed based upon urinalysis results. Testing performed by [facility] Microbiology Laboratory ([phone]) Organism Antibiotic Method Susceptibility Proteus mirabilis Ampicillin [...] - GEN ERAL ORDERABLES Final Result NILSA [address] [place] [address] * CT Chest Abdomen Pelvis W Contrast [...] Salvador Bronson M.D. KT T: Report ID: [id number] Reading Location: [id number] Procedure Note Salvador Bronson MD - 11/01/2024 [...] Salvador Bronson M.D. KT T: Report ID: [id number] Reading Location: [place] [address] Tahmina Palencia MD IMG CT PROCEDURES Blessing [...] and well aerated. ORBITS: No acute abnormality. [place] ocular lenses replaced bilaterally. OTHER: No other significant abnormality. INTRACRANIAL VESSELS [place]: The anterior, middle, posterior cerebral [...] Redd Hendrickson M.D. CHANDA T: Report ID: [id number] Reading Location: [place] [address] Procedure Note Redd Hendrickson MD - 11/01/2024 [...] and well aerated. ORBITS: No acute abnormality. [place] ocular lenses replaced bilaterally. OTHER: No other significant abnormality. INTRACRANIAL VESSELS [place]: The anterior, middle, posterior cerebral [...] Redd Hendrickson M.D. CHANDA T: Report ID: [id number] Reading Location: [place] [address] us Tahmina Palencia MD IMG CT PROCEDURES [...] LAB BLOOD ORDERABLES F inal Result [facility] [address] [facility] [place] [address] * CT Head WO Contrast [...] Shayne Landaverde M.D. AM T: Report ID: [id number] Reading Location: [id number] Procedure Note Shayne Landaverde MD - 11/01/2024 [...] Shayne Landaverde M.D. AM T: Report ID: [id number] Reading Location: [id number] Brittney CUEVA IM CT PROCEDURES Final Re sult * XR [...] James Javier M.D. MZ T: Report ID: [id number] Reading Location: [place] [address] Procedure Note James Javier MD - 11/01/2024 [...] James Javier M.D. MZ T: Report ID: [id number] Reading Location: [id number] Tahmina Palencia MD IMG XR PROCEDURES Blessing [...] MD LAB BLOOD ORDERABLES F inal Result [facility] [address] [facility] Department [place] [address] * (ABNORMAL) eGFR (11/01/2024 2:03 PM CDT) [...] MD LAB BLOOD ORDERABLES F inal Result [facility]ELLEN [address] [facility] Department [place] [address] * (ABNORMAL) Differential, auto (11/01/2024 2:03 PM CDT) Neutrophil abs 7.67(H) 1.50 - 6.50 K/cumm Imm gran abs 0.05 0.00 - 0.10 K/cumm [facility] Lymphocyte abs 1.67 0.80 - 3.30 K/cumm [facility] Monocyte abs 0.43 0.20 - 0.80 K/cumm [facility] Eosinophil abs 0.11 0.00 - 0.50 K/cumm [facility] Basophil abs 0.02 0.00 - 0.10 K/cumm [facility] Neutrophil pct 77.1 % [facility] Comment: Interpretive Data Percent cell count reference ranges are not reported, since discordance with absolute values may lead to misinterpretation of CBC data. Current Interpretive Data was last revised on 2017. Imm gran pct 0.5 % [facility] Comment: Interpretive Data Percent cell count reference ranges are not reported, since discordance with absolute values may lead to misinterpretation of CBC data. Current Interpretive Data was last revised on 2017. Lymphocyte pct 16.8 % [facility] Comment: Interpretive Data Percent cell count reference ranges are not reported, since discordance with absolute values may lead to misinterpretation of CBC data. Current Interpretive Data was last revised on 2017. Monocyte pct 4.3 % [facility] Comment: Interpretive Data Percent cell count reference ranges are not reported, since discordance with absolute values may lead to misinterpretation of CBC data. Current Interpretive Data was last revised on 2017. Eosinophil pct 1.1 % [facility] Comment: Interpretive Data Percent cell count reference ranges are not reported, since discordance with absolute values may lead to misinterpretation of CBC data. Current Interpretive Data was last revised on 2017. Basophil pct 0.2 % [facility] Comment: Interpretive Data Percent cell count reference ranges are not reported, since discordance with absolute values may lead to misinterpretation of CBC data. Current Interpretive Data was last revised on 2017. Blood 11/01/2024 2:03 PM CDT 11/01/2024 2:05 PM CDT Tahmina Palencia MD LAB BLOOD ORDERABLES F inal Result N[facility] [address] [facility] Department [place] [address] * (ABNORMAL) Pro B-type natriuretic peptide (11/01/2024 [...] ORDERABLES F inal Result Performing Organization Address [facility] Co de Phone Number NILSA [address] [place] [address] * (ABNORMAL) CBC with auto differential (11/01/2024 2:03 PM CDT) WBC 9.95(H) 3.80 - 9.90 K/cumm Hgb 8.8(L) 11.9 - 15.5 g/dL [facility] Hct 27.2(L) 35.6 - 45.5 % [facility] Plt 207 150 - 400 K/cumm [facility] MPV 10.6 9.1 - 12.3 fL [facility] RBC 2.66(L) 3.90 - 5.20 M/cumm [facility] MCV 102.3(H) 81.3 - 96.4 fL [facility] MCH 33.1 27.1 - 33.3 pg [facility] MCHC 32.4 32.3 - 35.7 g/dL [facility] RDW CV 13.4 11.1 - 14.9 % [facility] RDW SD 50.4(H) 35.7 - 48.1 fL [facility] NRBC abs 0.00 0.00 - 0.01 K/cumm [facility] Blood 11/01/2024 2:03 PM CDT 11/01/2024 2:05 PM CDT us Tahmina Palencia MD LAB BLOOD ORDERABLES F inal Result Performing Organization Address [facility]/ZIP Co de Phone Number NILSA [address] [place] [address] * (ABNORMAL) Comprehensive metabolic panel (11/01/2024 2:03 PM CDT) Pathologist [facility] Sodium 133(L) 135 - 145 mmol/L Potassium, pl 4.3 3.3 - 4.9 mmol/L [facility] Chloride 95(L) 97 - 110 mmol/L [facility] CO2 23 22 - 32 mmol/L [facility] Anion gap 15 2 - 15 mmol/L [facility] BUN 55(H) 6 - 25 mg/dL [facility] Creatinine 4.86(H) 0.60 - 1.10 mg/dL [facility] Glucose 290(H) 70 - 199 mg/dL [facility] Comment: Interpretive Data Fasting glucose >/= 126 [...] 2022. Calcium 9.2 8.5 - 10.3 mg/dL [facility] Bilirubin, total 0.2 0.1 - 1.2 mg/dL [facility] Protein, pl 7.0 6.5 - 8.5 g/dL [facility] Albumin 3.7 3.5 - 5.0 g/dL [facility] Alk phos 116 40 - 130 Units/L [facility] ALT 58(H) 7 - 45 Units/L [facility] AST 26 10 - 45 Units/L [facility] Blood 11/01/2024 2:03 PM CDT 11/01/2024 2:05 PM CDT us Tahmina Palencia MD LAB BLOOD ORDERABLES F inal Result [facility] [address] [facility] Department [place] [address] * ECG 12 lead (11/01/2024 1:59 PM CDT) Ventricular Rate EKG/Min 73 BPM [facility] Atrial Rate 73 BPM [facility] [place]-Interval (MSEC) 146 ms [facility] QRS-Interval (MSEC) 58 ms [facility] QT-Interval (MSEC) 396 ms [facility] QTc 436 ms [facility] P [place] 47 degrees [facility] R [place] 2 degrees [facility] T [place] 66 degrees [facility] Diagnosis Normal sinus rhythm Normal ECG When compared with ECG of 12-JUL-2024 11:48, No significant change was found Confirmed by DIAMOND GUTIERREZ M.D. ([id number]) on 11/02/2024 11:07:33 PM [facility] 11/01/2024 1:59 PM CDT 11/02/2024 11:07 PM CDT us Tahmina Palencia MD ECG ORDERABLES Final Result [facility] * (ABNORMAL) Urinalysis reflex to microscopic and culture Urine, clean voided (10/31/2024 9:47 AM CDT) Color, ur Mikayla Yellow Comment:Testing performed by : [address] [address] Clarity, ur Turbid(A) Clear NILSA Comment:Testing performed by : [address] [address] Specific gravity, ur 1.008 1.003 - 1.030 N[facility] Comment:Testing performed by : [address] [address] pH, urine 8.0 [facility] Comment: Interpretive Data U rine pH is affected by diet, medications, systemic acid-base disturbances, and renal tubular function. pH may affect urinary stone formation. For example, urine pH below 6.0 may help reduce the tendency for calcium phosphate stones and pH greater than 6.0 may reduce the tendency for uric acid stone formation. Source: [facility] Current Interpretive Data was last revised on 2017 Testing performed by: [address] [address] Protein, ur ql 2+(A) Negative NILSA Comment:Testing performed by : [address] [address] Glucose, ur ql 3+(A) Negative NILSA RODRIGES Comment:Testing performed by : [facility], [address] [place] [address], [place]., [address] Ketones, ur Negative Negative NILSA Comment:Testing performed by : [facility], [address] [place] [address], [place]., [address] Bilirubin, ur Negative Negative NILSA Comment:Testing performed by : [address], [place]., [address] Blood, ur Trace(A) Negative NILSA Comment:Testing performed by : [address], [place]., [address] Urobilinogen, ur <2.0 <2.0 mg/dL NILSA Comment:Testing performed by : [address], [place]., [address] Nitrite, ur Negative Negative NILSA Comment:Testing performed by : [address], [place]., [address] Leukocyte esterase, ur 4+(A) Negative NILSA Comment:Testing performed by : [address], [place]., [address] UA reflex comment Reflex to microscopic UA will be performed. NILSA Comment:Testing performed by : [address] [address] Urine, clean voided 10/31/2024 9:47 AM CDT 10/31/2024 9:50 AM CDT Cherelle Corcoran MD LAB MICROBIOLOGY - GENERAL ORDERABLES Final Result [facility] [address] [facility] Department [place] [address] * (ABNORMAL) Urinalysis, microscopic only (10/31/2024 9:47 AM CDT) WBC, ur 6-10(A) 0 - 5 /HPF Comment:Testing performed by : [address], [place]., [address] RBC, ur 0-2 0 - 2 /HPF NILSA RODRIGES Comment:Testing performed by : [address] [address] Bacteria, ur Trace(A) NILSA RODRIGES Comment:Testing performed by : [address] [address] Culture Reflex Comment Reflex conditions for urine culture (WBC >10) not met. NILSA RODRIGES Comment:Testing performed by : [address] [address] Urine, clean voided 10/31/2024 9:47 AM CDT 10/31/2024 9:50 AM CDT us Cherelle Corcoran MD LAB URINE ORDERAB LES Final Result [facility] RODRIGES [address] [facility] Department [place] [address] * XR Chest PA Lateral 2 Views [...] Edwardo Louis M.D. RW: ADAMARIS Report ID: [id number] Reading Location: [id number] Procedure Note Edwardo Louis MD - 10/24/2024 [...] Edwardo Louis M.D. RW: ADAMARIS Report ID: [id number] Reading Location: [place] [address] Cherelle Corcoran MD IMG XR PROCEDURES Final Result * CT CORONARY CALCIUM SCORING (10/17/2024 9:30 AM CDT) Anatomical Region Laterality Modality Chest Computed Tomogra phy Historical Provider MD MERIDA CT PROCEDURES Final R esult * Diabetic Eye Exam (07/27/2024 12:37 PM GAMBLING MONITOR) Historical Provider HEALTH MAINTENANCE Final Result * Colonoscopy (03/01/2024 8:49 AM CDT) Anatomical Region Laterality Modality Other Narrative Procedure Note Jaya Grier MD - 03/01/2024 8:49 AM CDT [facility] GI ENDOSCOPY Patient Name: Barbara Chakraborty Procedure Date: 03/01/2024 8:49 AM Date of : 1950 Admit Type: Outpatient Age: 73 Gender: Female Attending MD: Jaya Grier M.D. Room: [facility] ENDOSCOPY ROOM 06 Note Status: Finalized [...] The scope was passed under direct vision.The PCF-VC056T colonoscope was introduced through theanus and advanced [...] On: 03/01/2024 8:49 AM Recognized by the [employer] for promoting quality [...] taking vitamin-D. History of end-stage renal disease. Manager Water/Model: Holo[employer] Horizon A (S/N [id number]) CLINICAL INFORMATION: Current height: 61 inches Maximum [...] Rafaela Paulino M.D. TW: TW Report ID: [id number] Reading Location: [id number] Procedure Note Rafaela Paulino MD - 01/22/2024 EXAM DESCRIPTION: DEXA AXIAL SKELETON BONE DENSITY 1 OR MORE SITES REASON FOR STUDY: 73 y/o year old F with given history of: Post menopausal status. History of taking vitamin-D. History of end-stagerenal disease. Manager Water/Model: [employer] [place] A (S/N [id number]) CLINICAL INFORMATION: Current height: 61 inches Maximum [...] Rafaela Paulino M.D. TW: TW Report ID: [id number] Reading Location: [id number] Cherelle Corcoran MD IMG DXA PROCEDURE S [...] age 40, based on guidelines of the [employer] (ACR Practice Parameter for the Performance of Screening and Diagnostic Mammography) and [employer]. For women [...] on 19. Hep C Ab Nonreactive Nonreactive [facility]NER Comment: Interpretive Data Nonreactive: Antibodies to HCV [...] revised on 2019. HepBsAg Nonreactive Nonreactive [facility] Blood 10/15/2023 6:50 AM CDT 10/15/2023 7:07 AM CDT Jimbo Strauss MD LAB MICROBIOLOGY - GENERAL FREDDY HALEY Final Result [facility] [address] Department [place] [address] * (ABNORMAL) Albumin Creatinine Ratio, Urine (10/10/2022 11:39 AM CDT) Albumin Ur 3,240.2 mg/L [facility] Comment: Interpretive Data No reference range established. Current interpretive data was last revised 2018. Testing performed by: [address] [address] Creatinine Ur 74.8 mg/dL [facility] Comment: Interpretive Data No reference range established. Current interpretive data was last revised 2018. Testing performed by: [address] [address] Albumin Creatinine Ratio, Ur 4,332(H) 1 - 29 mg/g [facility] Comment:Testing performed by : [address] [address] Urine 10/10/2022 11:3 9 AM CDT 10/10/2022 1:45 PM CDT Markie Ryan MD LAB URINE ORDERABLES Final Re sult Performing Organization Address City/[facility] Co de Phone Number [facility] [address] [facility] Department [place] [address] from Last 3 Months or Most Recently Relevant to Health Maintenance Insurance [place] [address] MEDICARE ID[place] MEDICARE [facility] Advance Directives For more information, please contact: [phone] Documents on File Type Date Recorded Patient Tire Trimmer Hand Expl anation ADVANCE DIRECTIVE 07/15/2024 7:58 AM Power of Machine [employer] ADVANCE DIRECTIVE 02/02/2024 12:34 PM Erik r of Machine [employer] * Full Code (Latest Code Status on [...] Name Relationship Healthcare Agent Relationship Communication Areli Gonzalez Health Care Agent Care Teams Wire Preparation Machine Tender Relationship Specialty Start Date End Date Cherelle Corcoran MD PCP - General Family Medicine 08/30/19 Mark Queen MD Consulting Physician Infectious Diseases 01/10/20 Rudolph Welch MD [address] [place] [address] Consulting Physician Infectious Diseases 12/05/22 Markie Ryan MD [address] [place] [address] Consulting Physician Nephrology 12/05/22 [place] [id number] [address] Consulting Physician Nephrology 10/22/23 Jaya Grier MD [address] [place] [address] Consulting Physician Gastroenterology 02/01/24 Edgardo Kauffman MD [address] [facility] [address] [place] [address] Surgeon Vascular Surgery 07/15/24
--- OUTSIDE RECORDS SUMMARY | 2024-12-26 11:59 | XMS_ITS | Clinical Summary ---
Author Organization [facility] Address [address] [place] [address] Care Team Providers Care Media Supervisor Name Role Phone Cherelle Corcoran MD Primary Care Pro vider QueenMark Perez MD Unavailable [phone] Rudolph Welch MD Unavailable [phone] Markie Ryan MD Unavailable [phone] Jimbo Strauss MD Unavailable [phone] Jaya Grier MD Unavailable Edgardo Kauffman MD Unavailable Allergies No known active allergies Medications FreeStyle Madhav 3 [facility] [...] nephropathy, with long-term current use of insulin ([facility]) Use to continually monitor glucose, [...] nephropathy, with long-term current use of insulin ([facility]) Inject 4 units SQ before [...] DAILY 90 tablet 1 2024 Active lidocain-me.sali [id number] 4-20-0.025-5 % adhesive patch,medicated Apply 1 patch [...] neuropathy, with long-term current use of insulin ([facility]) 1 each by other route [...] mg tablet 1 tablet (3.125 mg total) 06/06/ 2025 06/10 /2025 Discontinued Active Problems Problem Noted Date Diagnosed [...] restarting Assessment & Plan (07/14/2024 2:30 PM FLAMER AFTER LASTING): Continue Lipitor Assessment & Plan (07/14/2024 8:56 AM FLAMER AFTER LASTING): Ok to restart atorvastatin, but also given [...] nephrology Assessment & Plan (07/14/2024 2:39 PM FLAMER AFTER LASTING): Patient is needing a Perma catheter exchange [...] proceed. Assessment & Plan (07/14/2024 8:51 AM FLAMER AFTER LASTING): Following with nephrology Assessment & Plan (01/06/2024 [...] 10/30/2023 Assessment & Plan (05/06/2024 7:49 AM FLAMER AFTER LASTING): Reviewed hospital discharge summary Now resolved Upcoming [...] stable Assessment & Plan (07/24/2023 1:51 PM FLAMER AFTER LASTING): Chronic/stable Parkinsonism 08/14/2022 Assessment & Plan (10/24/2024 10:57 AM CDT): Following with neurology Assessment & Plan (07/14/2024 8:54 AM FLAMER AFTER LASTING): Following with neurology, recommend reaching out to them in regards to restarting benztropine. Consider waiting until after restarts other medications given daughter reports tremors controlled off benztropine currently Assessment & Plan (11/10/2023 4:43 PM CDT): Following with neurology On cogentin Assessment & Plan (07/24/2023 1:50 PM FLAMER AFTER LASTING): Following with neurology On cogentin twice a day Assessment & Plan (01/23/2023 9:20 AM CDT): Following with neurology On cogentin twice a day Assessment & Plan (10/10/2022 10:41 AM CDT): Following with neurology On cogentin Assessment & Plan (08/14/2022 10:46 AM FLAMER AFTER LASTING): Following with neurology, reviewed note On cogentin [...] - PT/OT recommends SNF. -Plan [facility] on 11/26 ? Assessment & Plan (11/24/2021 2:07 PM CDT): Deconditioning 2/2 prolonged hospitalization. Daughter reports that prior to her illness, she was independent with a walker. - PT/OT recommends SNF. -Plan Agued[facility] on 11/25. Assessment & Plan (11/23/2021 12:24 PM CDT): Deconditioning 2/2 prolonged hospitalization. Daughter reports that prior to her illness, she was independent with a walker. - PT/OT recommends SNF. -Plan [facility]ued[facility] on 11/25. Assessment & Plan (11/22/2021 1:34 PM CDT): Deconditioning 2/2 prolonged hospitalization. Daughter reports that prior to her illness, she was independent with a walker. - PT/OT recommends SNF. -Plan [facility] on 11/25. Assessment & Plan (11/21/2021 [...] care Assessment & Plan (08/14/2022 10:47 AM FLAMER AFTER LASTING): Following with podiatry Assessment & Plan (04/02/2022 [...] Goal weight 155lbs -Home with family at [place], financial coordinator consulted to review salt restrictions. -outpatient BMP, [...] Goal weight 155lbs -Home with family at [place], financial coordinator consulted to review salt restrictions. Assessment & [...] - renal consulted regarding volume management, possible care home dialysis planning, expedite OP f/u. Serologies and urine studies ordered. -Added metolazone 2.5mg/daily per renal. -Anticipate likely transition to PO agents prior to DC with ongoing clinical improvement. Goal weight 145-150lbs -Home with family at [place], financial coordinator consulted to review salt restrictions. Assessment & [...] net neg 1/2-1L/day. -consider renal consult regarding care home dialysis planning, expedite OP f/u. Assessment [...] net neg 1/2-1L/day. -consider renal consult regarding care home dialysis planning. Assessment & Plan (09/06/2021 [...] neurology Assessment & Plan (07/14/2024 8:53 AM FLAMER AFTER LASTING): Following with neurology Assessment & Plan (01/05/2024 10:40 PM CDT): Follows with neurology. -continue risperidone 2mg QHS -continue benztropine 2mg daily Assessment & Plan (11/10/2023 4:37 PM CDT): Following with neurology Assessment & Plan (07/24/2023 1:50 PM FLAMER AFTER LASTING): Following with neurology Assessment & Plan (01/23/2023 9:18 AM CDT): Following with neurology Assessment & Plan (10/10/2022 10:37 AM CDT): Following with neurology, ordered MRI, # given to son to schedule Assessment & Plan (06/09/2022 3:37 PM FLAMER AFTER LASTING): Needs to reschedule with neurology [facility], but [facility] for [facility] for schizoaffective disorder Assessment & Plan (01/14/2022 [...] needed Assessment & Plan (06/09/2022 3:37 PM FLAMER AFTER LASTING): Reviewed PMH & PHQ Screening PHQ-2 Total Score (If total score is 3 or more points, staff should administer the PHQ-9): 0 Hearing/vision screening reviewed, referrals placed as needed Fall risk reviewed Reviewed medications and supplements Specialists: endocrine, nephrology, cardiology, neurology evidence of cognitive impairment HCM: orders placed as needed Assessment & Plan (01/08/2021 3:44 PM CDT): Reviewed [facility] & PHQ Screening PHQ-2 Total Score (If [...] psychiatry Assessment & Plan (08/18/2024 8:44 AM FLAMER AFTER LASTING): Chronic, stable. Does not report any stephanie [...] discussed. Assessment & Plan (07/14/2024 8:54 AM FLAMER AFTER LASTING): Following with psychiatry, recommend reaching out to [...] psychiatry Assessment & Plan (07/24/2023 1:50 PM FLAMER AFTER LASTING): Following with psychiatry Assessment & Plan (01/23/2023 [...] discussed. Assessment & Plan (08/09/2021 5:42 AM FLAMER AFTER LASTING): Following with psychiatry Assessment & Plan (08/07/2021 3:28 PM FLAMER AFTER LASTING): Chronic condition, switch to Haldol and has had multiple different problems including acute kidney failure in infectious process. Records not available at outside hospital-[place]. Confounded by delirium. Currently experiencing delirium will discontinue Haldol and return to Risperdal as previously taking. Risperdal was discontinued due to poorly-controlled diabetes. Monitor in 1 to 2 weeks. Assessment & Plan (07/03/2021 7:24 AM FLAMER AFTER LASTING): Following with psychiatry D/c risperidone, started on haldol Assessment & Plan (07/01/2021 9:16 PM FLAMER AFTER LASTING): Chronic, stable. 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 The patient previously lived on her own and was observed to be hoarding. See additional problems-dementia. Evaluate again in 1 month after starting Risperdal. Iron deficiency anemia 04/02/2020 Assessment & Plan (05/06/2024 7:51 AM FLAMER AFTER LASTING): Recommend discussing IV iron with nephrology Assessment & Plan (10/02/2020 4:35 PM CDT): Continue iron Assessment & Plan (05/28/2020 1:51 PM FLAMER AFTER LASTING): Iron levels recently normalized, but still anemic, repeat today Assessment & Plan (04/16/2020 11:45 AM CDT): Recent iron within normal limits, H/H improving, continue supplementation until normalized Gastroesophageal reflux disease without esophagi tis 04/02/2020 Assessment & Plan (10/24/2024 10:57 AM CDT): continue protonix Following with GI Assessment & Plan (07/14/2024 8:56 AM FLAMER AFTER LASTING): Restart protonix Upcoming EGD Assessment & Plan (01/05/2024 10:40 PM CDT): -continue famotidine Assessment & Plan (10/02/2020 4:35 PM CDT): Continue omeprazole Assessment & Plan (07/24/2020 2:06 PM FLAMER AFTER LASTING): Recurrent symptoms off omeprazole, restart Assessment & Plan (05/28/2020 1:51 PM FLAMER AFTER LASTING): Iron levels recently normalized, but still anemic, repeat today Assessment & Plan (04/02/2020 1:26 PM CDT): Start PPI History of amputation of toe 01/19/2020 Assessment & Plan (01/08/2021 3:50 PM CDT): Stable Assessment & Plan (10/02/2020 4:35 PM CDT): Stable Assessment & Plan (04/30/2020 1:00 PM FLAMER AFTER LASTING): Stable Assessment & Plan (02/14/2020 5:15 PM [...] controlled Assessment & Plan (07/14/2024 2:32 PM FLAMER AFTER LASTING): Continue carvedilol, hydralazine Assessment & Plan (07/14/2024 8:51 AM FLAMER AFTER LASTING): BP controlled today off medication Daughter reports nephrology said could restart medication, is planning to restart coreg first and monitor blood pressure prior to restarting nifedipine/hydralazine Assessment & Plan (05/06/2024 7:48 AM FLAMER AFTER LASTING): BP controlled Continue nifedipine, hold prior to dialysis Assessment & Plan (01/11/2024 4:05 PM CDT): Systolic BP uncontrolled Stressed importance of picking up nifedipine with patient's daughter rAeli Continue hydralazine 50mg three times a day and coreg twice a day on non dialysis days and once a day after dialysis Assessment & Plan (01/05/2024 10:45 PM CDT): Patient with uncontrolled hypertension in ED. Patient has issues with labile BP with hypertension on non-HD days and episodes of hypotension and syncopal episode x1 with HD. Most recent admission at [facility] with initiation of hydralazine and nifedipine [...] amlodipine Assessment & Plan (08/03/2023 4:02 PM FLAMER AFTER LASTING): BP uncontrolled Start 5mg amlodipine Assessment & Plan (07/24/2023 1:49 PM FLAMER AFTER LASTING): Blood pressure borderline today off medications Assessment & Plan (01/23/2023 9:18 AM CDT): Blood pressure borderline low today, asymptomatic Checking labs Advised to decrease amlodipine to 5mg and monitor blood pressure Assessment & Plan (10/10/2022 10:50 AM CDT): Continue coreg 6.25mg twice a day & 40mg valsartan Assessment & Plan (08/14/2022 10:43 AM FLAMER AFTER LASTING): Blood pressure at goal, continue coreg 6.25mg twice a day Assessment & Plan (06/09/2022 3:32 PM FLAMER AFTER LASTING): Blood pressure at goal, continue coreg 3.125mg [...] day Assessment & Plan (08/05/2021 10:35 AM FLAMER AFTER LASTING): Blood pressure at goal Increase amlodipine to 10mg & d/c hydralazine per cardiology Assessment & Plan (05/28/2021 4:59 PM FLAMER AFTER LASTING): Blood pressure above goal, but previously within [...] lisinopril Assessment & Plan (08/28/2020 12:12 PM FLAMER AFTER LASTING): Blood pressure at goal Continue lisinopril Assessment & Plan (07/24/2020 2:05 PM FLAMER AFTER LASTING): Blood pressure at goal Continue lisinopril Assessment & Plan (05/28/2020 1:50 PM FLAMER AFTER LASTING): BP borderline Continue 10mg lisinopril Continue to monitor Assessment & Plan (04/30/2020 12:32 PM FLAMER AFTER LASTING): BP borderline Continue 10mg lisinopril Continue to [...] endocrine Assessment & Plan (07/14/2024 2:31 PM FLAMER AFTER LASTING): Controlled. Continue as per Endocrine and PCP Assessment & Plan (07/14/2024 8:50 AM FLAMER AFTER LASTING): Following with endocrine, reviewed note Holding insulin [...] +SSI Assessment & Plan (07/24/2023 1:49 PM FLAMER AFTER LASTING): Lab Results Component Value Date HGBA1C 8.1 [...] trulicity Assessment & Plan (08/14/2022 10:42 AM FLAMER AFTER LASTING): Following with endocrine Continue lantus, 12 units humalog TIDAC & 1.5mg trulicity Assessment & Plan (06/09/2022 3:32 PM FLAMER AFTER LASTING): Following with endocrine Home blood sugar at [...] for strict med oversight by family at [place] reviewed with daughter this admit. Assessment & [...] for strict med oversight by family at [place] reviewed with daughter this admit. Assessment & [...] and nephropathy. Med oversight by family at [place]. Assessment & Plan (09/14/2021 12:22 PM CDT): [...] as she had discussed this with outpatient stiff neck loader - repeat A1c - resume home statin, not currently on feliciano due to kidney function Assessment & Plan (08/05/2021 10:35 AM FLAMER AFTER LASTING): Continue 15 units lantus twice a day Assessment & Plan (07/03/2021 7:24 AM FLAMER AFTER LASTING): Fasting blood sugar significantly improved Risperidone changed Continue current meds Continue to monitor Assessment & Plan (06/18/2021 11:22 AM FLAMER AFTER LASTING): Increase lantus to 60 units nightly, if blood sugar still above goal after 1 week split into 33 units twice a day Follow up with blood sugar via portal in 2 weeks Continue jardiance 25mg Continue trulicity 4.5mg weekly Assessment & Plan (05/28/2021 4:58 PM FLAMER AFTER LASTING): Increase lantus to 55 units nightly Continue [...] weekly Assessment & Plan (08/28/2020 1:00 PM FLAMER AFTER LASTING): DM Care Plan: Meds: Lantus - continue [...] recheck Assessment & Plan (07/24/2020 2:05 PM FLAMER AFTER LASTING): Formulary change / insurance, switched to trulicity. Will increase to 1.5mg Assessment & Plan (05/28/2020 1:50 PM FLAMER AFTER LASTING): Check a1c Barbara isn't checking blood sugar regularly, but when she is she has several >200 so I lean towards increasing if a1c>7 Assessment & Plan (04/30/2020 12:31 PM FLAMER AFTER LASTING): Blood sugar improved on 40 units basaglar [...] was in the room. Recently treated at [facility] for PNA with prolonged course [...] was in the room. Recently treated at [facility] for PNA with prolonged course [...] was in the room. Recently treated at [facility] for PNA with prolonged course [...] was in the room. Recently treated at [facility] for PNA with prolonged course [...] was in the room. Recently treated at [facility] for PNA with prolonged course [...] was in the room. Recently treated at [facility] for PNA with prolonged course [...] was in the room. Recently treated at [facility] for PNA with prolonged course [...] was in the room. Recently treated at [facility] for PNA with prolonged course [...] was in the room. Recently treated at [facility] for PNA with prolonged course [...] was in the room. Recently treated at [facility] for PNA with prolonged course [...] 11/10/2023 Assessment & Plan (08/14/2022 10:44 AM FLAMER AFTER LASTING): Continue eliquis Assessment & Plan (06/09/2022 3:36 PM FLAMER AFTER LASTING): Continue eliquis Assessment & Plan (04/02/2022 6:05 [...] 10/10/2022 Assessment & Plan (08/07/2021 3:30 PM FLAMER AFTER LASTING): Subacute, persistent, hospitalized recently. She is alert [...] Impression: Patient recently had MRI performed at [facility] which revealed acute osteomyelitis to [...] 08/28/2020 Assessment & Plan (05/28/2020 1:52 PM FLAMER AFTER LASTING): Encouraged to follow up with wound clinic for reassessment Assessment & Plan (04/30/2020 12:31 PM FLAMER AFTER LASTING): Following with wound clinic Assessment & Plan [...] acute osteomyelitis on recent MRI performed at [facility]. She is being treated with antibiotic therapy [...] nightly Assessment & Plan (08/14/2022 10:42 AM FLAMER AFTER LASTING): Continue lyrica 150mg nightly Assessment & Plan (06/09/2022 3:32 PM FLAMER AFTER LASTING): Continue lyrica 150mg nightly Assessment & Plan [...] status. Assessment & Plan (05/28/2021 4:58 PM FLAMER AFTER LASTING): Continue lyrica 150mg nightly Assessment & Plan [...] gabapentin Assessment & Plan (08/28/2020 1:00 PM FLAMER AFTER LASTING): On gabapentin Assessment & Plan (07/24/2020 2:05 PM FLAMER AFTER LASTING): Continue gabapentin Assessment & Plan (04/02/2020 1:22 [...] Date Type Department Care Team Description 12/26/2024 8:40 AM CDT Office Visit [facility] Endocrinology Metabolism and Lipid [facility] Medical Office Building [address], [address] [place] [address] Smith Gibbs MD Type 2 diabetes mellitus with chronic kidney disease on chronic dialysis, with long-term current use of insulin (HCC) (Primary Dx); Primary hypertension; Mixed hyperlipidemia; Diabetic polyneuropathy associated with type 2 diabetes mellitus (HCC); Type 2 diabetes mellitus with diabetic neuropathy, with long-term current use of insulin (HCC) 12/26/2024 Nurse Triage [facility] Primary Care at [address] [place] [address] Cherelle Corcoran MD 11/29/2024 3:30 PM CDT Office Visit [facility] Primary Care at [address] [phone] Cherelle Corcoran MD Multiple falls (Primary Dx); Hypertension associated with diabetes (HCC); Type 2 diabetes mellitus with diabetic neuropathy, with long-term current use of insulin (HCC); Chronic diastolic congestive heart failure (HCC); Acute pain of left shoulder 11/28/2024 Telephone [facility] Primary Care at [address] [phone] Cherelle Corcoran MD 11/25/2024 Orders Only [facility] [phone] Unknown, Notinfile 11/24/2024 Telephone [facility] Primary Care at [address] [phone] Cherelle Corcoran MD JOY Questions 11/21/2024 Orders Only [facility] [phone] Unknown, Notinfile 11/15/2024 Orders Only [facility] [phone] Unknown, Notinfile 11/14/2024 Orders Only [facility] [phone] Unknown, Notinfile 11/13/2024 Orders Only [facility] [phone] Unknown, Notinfile 11/07/2024 Telephone [facility] Nephrology at [address] [phone] Markie Ryan MD 11/07/2024 Telephone [facility] Primary Care at [address] [phone] Cherelle Corcoran MD Additional Services Or Orders 11/07/2024 Telephone [facility] Primary Care at [address] [phone] Cherelle Corcoran MD 11/07/2024 Telephone [facility] Medical [facility] Primary Care at [address] [phone] Cherelle Corcoran MD Appointment Request 11/01/2024 3:17 PM CDT - 11/05/2024 1:00 PM CDT Hospital Encounter [address] [address] Tahmina Palencia MD Medavaram, Atul, MD Al Furgani, Mahmud Mustafa, MD Hypertensive urgency (Primary Dx); Acute cystitis without hematuria; Generalized weakness; Peripheral vertigo, unspecified laterality; Lightheadedness; ESRD on hemodialysis (HCC); Anemia of renal disease; Hyponatremia Discharge Disposition: Discharge to home, home health skilled care 11/01/2024 Nurse Triage [facility] Primary Care at [address] [phone] Cherelle Corcoran MD 10/31/2024 8:53 AM CDT - 10/31/2024 11:59 PM CDT Hospital Encounter [facility] Office Building [address] [place] [phone] UTI symptoms Discharge Disposition: Discharge to home or self care 10/31/2024 Results Follow-Up [facility] Primary Care at [address] [phone] Cherelle Corcoran MD Urinalysis reflex to microscopic and culture Urine, clean voided, Urinalysis, microscopic only 10/25/2024 Results Follow-Up [facility] Primary Care at [address] [phone] Cherelle Corcoran MD XR Chest PA Lateral 2 Views 10/24/2024 11:45 AM CDT - 10/24/2024 11:59 PM CDT Hospital Encounter [facility] MOB 1 DIAG IMG [address] [place] [phone] SOB (shortness of breath) Discharge Disposition: Discharge to home or self care 10/24/2024 11:35 AM CDT Lab [facility] Medical Office Building [address] [place] [phone] 10/24/2024 10:30 AM CDT Office Visit [facility] Primary Care at [address] [place] [phone] Cherelle Corcoran MD Encounter for Medicare annual [...] behavioral disturbance (HCC); Parkinsonism, unspecified Parkinsonism type ([facility]); Schizoaffective disorder, bipolar type (HCC); Chronic diastolic congestive heart failure (HCC); Gastroesophageal reflux disease without esophagitis 10/18/2024 Orders Only [facility] Nephrology at [address] [place] [address] ProviderJoe MD 10/03/2024 Telephone [facility] Endocrinology Metabolism and Lipid [address] [place] [address] Medical Office Building [address], [address] [place] [address] Yoly Herrera RN Insulin dosing 10/03/2024 Telephone [facility] Primary Care at [address] [place] [phone] Cherelle Corcoran MD Medical Question/Miscellaneous from Last [...] the past 12 months has th e [employer], gas, oil, or water [employer] threatened to shut off services in your [...] answer 11/07/2024 How often [facility] you [facility]? Patient unable to answer 11/07/2024 Do [...] any time in the past 12 m [facility], were you homeless or living in a residential (including now)? No 11/07/2024 Personal Safety Answer Date Recorded Have you ever been in or are you currently in a harmful physical or emotional relationship or is someone making you feel afraid or unsafe? Denies 11/01/2024 Comments No Sex and Gender Information Value Date Recorded Sex Assigned at Not on file Legal Sex Female 9:03 AM FLAMER AFTER LASTING Gender Identity Female 02/08/2020 6:39 PM CDT [...] 01/21/2025 01/22/2024, 01/22/2024, 09/25/2022, Additional history exists Influenza Vaccine (#1) 2025 , 08/07/2022, 04/01/2022, Additional history exists Hemoglobin A1C 05/04/2025 11/01/2024, 03/0 08/2024, 05/16/2024, Additional history exists Dilated Eye Exam 07/27/2025 07/27/2024, , 05/27/2022, Additional history exists Well Visit 65+ 10/24/2025 10/24/2024, 10/21, 06/09/2022, Additional history exists Depression Screening 11/01/2025 11/01/2024, 11/01/2024, 10/24/2024, Additional history exists Lipid Panel 11/01/2025 11/01/2024, 04/23, 10/30/2023, Additional history exists Fall Risk Assessment 11/05/2025 11/05/2024, 10/24/2024, 11/10/2023, Additional history exists eGFR 11/25/2025 11/25/2024, 0607/2024, 11/14/2024, Additional history exists Osteoporosis Screening-Bone Density Scan 01/21/2026 01/22/2024, 01/22/2024, 01/08/2021 Colon Cancer Screening-Colonoscopy 03/01/2027 03/01/2024, 04/01/2017 Hepatitis C Screening Completed 10/15/2023, 020 Colon Cancer Screening-CT Colonography Discontinued 03/01/2024, 04/01/2017 Colon Cancer Screening-DNA Stool Discontinued 03/01/20 24, 04/01/2017 Colon Cancer Screening-FIT Discontinued 03/01/2024, Colon Cancer Screening-Sigmoidoscopy Discontinued 03/01/2024, 04/01/2017 Pneumococcal vaccine 65+ Completed 024, 01/20/2019, 03/31/2017 Hepatitis B Screening Completed 11/15/2024 , 03/10/2024, 01/07/2024, Additional history exists Medical Devices Implanted Type Area Architectural Examiner Device Identifier Shelf Expiration Date Model / Serial / Lot [employer] Vasc[employer]ak Safesheath D-Pro 15.5fr 24cm Kit Catheter [id number] - [id number] Implanted:Qty: 1 on 10/15/2023 at [facility] [employer] 10/19/2025 [id number] / / [id number] [employer] Embosafe 15.5fr 24cm Basic 2 Lumen Kit Catheter [id number] - [id number] Implanted:Qty: 1 on 07/15/2024 by Edgardo Kauffman MD at [facility] [employer] 08/19/2026 [id number] / / [id number] Procedures Procedure Name Priority Date/Time Associated Diagnosis [...] EYE EXAM Routine 07/27/2024 12: 37 PM FLAMER AFTER LASTING COLONOSCOPY 03/01/2024 8:49 AM CDT DEXA AXIAL [...] eGFR 7(L) >=60 mL/min/1. 73 m2 NILSA Comment: Interpretive [...] was last reviewed 2021. Testing performed by: [address] [address] Blood 11/25/2024 12:5 8 PM CDT 11/25/2024 2:12 PM CDT us Notinfile Unknown LAB BLOOD ORDERABLES Final Res ult NILSA [address] [facility] Department [place] [address] * (ABNORMAL) Differential, auto (11/25/2024 12:58 PM CDT) Neutrophil abs 6.51(H) 1.50 - 6.50 K/cumm NILSA Comment:Testing performed by : [address] [address] Imm gran abs 0.05 0.00 - 0.10 K/cumm NILSA Comment:Testing performed by : [address] [address] Lymphocyte abs 2.37 0.80 - 3.30 K/cumm NILSA Comment:Testing performed by : [address] [address] Monocyte abs 0.70 0.20 - 0.80 K/cumm NILSA Comment:Testing performed by : [address] [address] Eosinophil abs 0.16 0.00 - 0.50 K/cumm NILSA Comment:Testing performed by : [address] [address] Basophil abs 0.04 0.00 - 0.10 K/cumm NILSA Comment:Testing performed by : [address] [address] Neutrophil pct 66.3 % NILSA Comment: Interpretive Data Percent cell count reference ranges are not reported, since discordance with absolute values may lead to misinterpretation of CBC data. Current Interpretive Data was last revised on 2017. Testing performed by: [address] [address] Imm gran pct 0.5 % [facility] Comment: Interpretive Data Percent cell count reference ranges are not reported, since discordance with absolute values may lead to misinterpretation of CBC data. Current Interpretive Data was last revised on 2017. Testing performed by: [address] [address] Lymphocyte pct 24.1 % [facility] Comment: Interpretive Data Percent cell count reference ranges are not reported, since discordance with absolute values may lead to misinterpretation of CBC data. Current Interpretive Data was last revised on 2017. Testing performed by: [address] [address] Monocyte pct 7.1 % [facility] Comment: Interpretive Data Percent cell count reference ranges are not reported, since discordance with absolute values may lead to misinterpretation of CBC data. Current Interpretive Data was last revised on 2017. Testing performed by: [address] [address] Eosinophil pct 1.6 % [facility] Comment: Interpretive Data Percent cell count reference ranges are not reported, since discordance with absolute values may lead to misinterpretation of CBC data. Current Interpretive Data was last revised on 2017. Testing performed by: [address] [address] Basophil pct 0.4 % [facility] Comment: Interpretive Data Percent cell count reference ranges are not reported, since discordance with absolute values may lead to misinterpretation of CBC data. Current Interpretive Data was last revised on 2017. Testing performed by: [address] [address] Blood 11/25/2024 12:5 8 PM CDT 11/25/2024 2:12 PM CDT us Notinfile Unknown LAB BLOOD ORDERABLES Final Res ult NILSA [address] [facility] Department [place] [address] * (ABNORMAL) CBC with auto differential (11/25/2024 12:58 PM CDT) WBC 9.83 3.80 - 9.90 K/cumm NILSA Comment:Testing performed by : [address] [address] Hgb 9.9(L) 11.9 - 15.5 g/dL NILSA Comment:Testing performed by : [address] [address] Hct 31.1(L) 35.6 - 45.5 % NILSA Comment:Testing performed by : [address] [address] Plt 351 150 - 400 K/cumm NILSA Comment:Testing performed by : [address] [address] MPV 10.0 9.1 - 12.3 fL NILSA Comment:Testing performed by : [address] [address] RBC 3.07(L) 3.90 - 5.20 M/cumm NILSA Comment:Testing performed by : [address] [address] MCV 101.3(H) 81.3 - 96.4 fL NILSA Comment:Testing performed by : [address] [address] MCH 32.2 27.1 - 33.3 pg NILSA Comment:Testing performed by : [address] [address] MCHC 31.8(L) 32.3 - 35.7 g/dL NILSA Comment:Testing performed by : [address] [address] RDW CV 15.7(H) 11.1 - 14.9 % NILSA Comment:Testing performed by : [address] [address] RDW SD 56.9(H) 35.7 - 48.1 fL NILSA Comment:Testing performed by : [address] [address] NRBC abs 0.02(H) 0.00 - 0.01 K/cumm NILSA RODRIGES Comment:Testing performed by : [address] [address] Blood 11/25/2024 12:5 8 PM CDT 11/25/2024 2:12 PM CDT us Notinfile Unknown LAB BLOOD ORDERABLES Final Res ult NILSA RODRIGES [facility] Department [place] [address] * (ABNORMAL) Comprehensive metabolic panel (11/25/2024 12:58 PM CDT) Sodium 133(L) 135 - 145 mmol/L NILSA RODRIGES Comment:Testing performed by : [address] [address] Potassium, pl 4.4 3.3 - 4.9 mmol/L NILSA RODRIGES Comment:Testing performed by : [address] [address] Chloride 94(L) 97 - 110 mmol/L NILSA Comment:Testing performed by : [address] [address] CO2 23 22 - 32 mmol/L NILSA Comment:Testing performed by : [address] [address] Anion gap 16(H) 2 - 15 mmol/L NILSA Comment:Testing performed by : [address] [address] BUN 53(H) 6 - 25 mg/dL NILSA Comment:Testing performed by : [address] [address] Creatinine 5.90(H) 0.60 - 1.10 mg/dL NILSA RODRIGES Comment:Testing performed by : [address] [place] [address] Glucose 139 70 - 199 mg/dL NILSA [...] was last revised 2022. Testing performed by: [address] [address] Calcium 9.4 8.5 - 10.3 mg/dL NILSA Comment:Testing performed by : [address] [address] Bilirubin, total <0.2 0.1 - 1.2 mg/dL NILSA Comment:Testing performed by : [address] [address] Protein, pl 7.5 6.5 - 8.5 g/dL NILSA Comment:Testing performed by : [address] [address] Albumin 4.0 3.5 - 5.0 g/dL NILSA Comment:Testing performed by : [address] [address] Alk phos 108 40 - 130 Units/L NILSA Comment:Testing performed by : [address] [address] ALT 9 7 - 45 Units/L NILSA Comment:Testing performed by : [address] [address] AST 11 10 - 45 Units/L NILSA Comment:Testing performed by : [address] [address] Blood 11/25/2024 12:5 8 PM CDT 11/25/2024 2:12 PM CDT us Notinfile Unknown LAB BLOOD ORDERABLES Final Res ult Performing Organization Address [facility] Co de Phone Number NILSA [address] [facility] [place] [address] * (ABNORMAL) eGFR (11/21/2024 4:15 AM CDT) [...] was last reviewed 2021. Testing performed by: [address] [address] Blood 11/21/2024 4:15 AM CDT 11/21/2024 7:54 AM CDT us Notinfile Unknown LAB BLOOD ORDERABLES Final Res ult Performing Organization Address City/[facility] Co de Phone Number NILSA [address] [facility] [place] [address] * Differential, auto (11/21/2024 4:15 AM CDT) Neutrophil abs 6.24 1.50 - 6.50 K/cumm NILSA Comment:Testing performed by : [address] [address] Imm gran abs 0.06 0.00 - 0.10 K/cumm [facility] Comment:Testing performed by : [address], [place]., [address] Lymphocyte abs 2.12 0.80 - 3.30 K/cumm [facility] Comment:Testing performed by : [address], [place]., [address] Monocyte abs 0.70 0.20 - 0.80 K/cumm [facility] Comment:Testing performed by : [address], [place]., [address] Eosinophil abs 0.13 0.00 - 0.50 K/cumm [facility] Comment:Testing performed by : [address], [place]., [address] Basophil abs 0.04 0.00 - 0.10 K/cumm [facility] Comment:Testing performed by : [address] [address] Neutrophil pct 67.3 % [facility] Comment: Interpretive Data Percent cell count reference ranges are not reported, since discordance with absolute values may lead to misinterpretation of CBC data. Current Interpretive Data was last revised on 2017. Testing performed by: [address] [address] Imm gran pct 0.6 % [facility] Comment: Interpretive Data Percent cell count reference ranges are not reported, since discordance with absolute values may lead to misinterpretation of CBC data. Current Interpretive Data was last revised on 2017. Testing performed by: [address] [address] Lymphocyte pct 22.8 % [facility] Comment: Interpretive Data Percent cell count reference ranges are not reported, since discordance with absolute values may lead to misinterpretation of CBC data. Current Interpretive Data was last revised on 2017. Testing performed by: [address] [address] Monocyte pct 7.5 % [facility] Comment: Interpretive Data Percent cell count reference ranges are not reported, since discordance with absolute values may lead to misinterpretation of CBC data. Current Interpretive Data was last revised on 2017. Testing performed by: [address] [address] Eosinophil pct 1.4 % NILSA RODRIGES Comment: Interpretive Data Percent cell count reference ranges are not reported, since discordance with absolute values may lead to misinterpretation of CBC data. Current Interpretive Data was last revised on 2017. Testing performed by: [address] [address] Basophil pct 0.4 % NILSA RODRIGES Comment: Interpretive Data Percent cell count reference ranges are not reported, since discordance with absolute values may lead to misinterpretation of CBC data. Current Interpretive Data was last revised on 2017. Testing performed by: [address] [address] Blood 11/21/2024 4:15 AM CDT 11/21/2024 7:54 AM CDT us Notinfile Unknown LAB BLOOD ORDERABLES Final Res ult NILSA [address] Department [place] [address] * (ABNORMAL) CBC with auto differential (11/21/2024 4:15 AM CDT) WBC 9.29 3.80 - 9.90 K/cumm NILSA RODRIGES Comment:Testing performed by : [address] [address] Hgb 8.9(L) 11.9 - 15.5 g/dL NILSA RODRIGES Comment:Testing performed by : [address] [address] Hct 28.2(L) 35.6 - 45.5 % NILSA RODRIGES Comment:Testing performed by : [address] [address] Plt 246 150 - 400 K/cumm NILSA RODRIGES Comment:Testing performed by : [address] [address] MPV 11.4 9.1 - 12.3 fL NILSA RODRIGES Comment:Testing performed by : [address] [address] RBC 2.72(L) 3.90 - 5.20 M/cumm NILSA RODRIGES Comment:Testing performed by : [address] [address] MCV 103.7(H) 81.3 - 96.4 fL NILSA RODRIGES Comment:Testing performed by : [address] [address] MCH 32.7 27.1 - 33.3 pg NILSA Comment:Testing performed by : [address] [address] MCHC 31.6(L) 32.3 - 35.7 g/dL NILSA RODRIGES Comment:Testing performed by : [address] [address] RDW CV 16.0(H) 11.1 - 14.9 % NILSA Comment:Testing performed by : [address], [address] RDW SD 59.4(H) 35.7 - 48.1 fL NILSA Comment:Testing performed by : [address] [address] NRBC abs 0.00 0.00 - 0.01 K/cumm NILSA Comment:Testing performed by : [address], [address] Blood 11/21/2024 4:15 AM CDT 11/21/2024 7:54 AM CDT us Notinfile Unknown LAB BLOOD ORDERABLES Final Res ult NILSA [address] [facility] Department [place] [address] * (ABNORMAL) Comprehensive metabolic panel (11/21/2024 4:15 AM CDT) Pathologist [facility] Sodium 135 135 - 145 mmol/L NILSA RODRIGES Comment:Testing performed by : [address], [address] Potassium, pl 4.6 3.3 - 4.9 mmol/L NILSA RODRIGES Comment:Testing performed by : [address], [place]., [address] Chloride 100 97 - 110 mmol/L NILSA Comment:Testing performed by : [address], [place]., [address] CO2 22 22 - 32 mmol/L NILSA Comment:Testing performed by : [address], [place]., [address] Anion gap 13 2 - 15 mmol/L NILSA Comment:Testing performed by : [address], [place]., [address] BUN 62(H) 6 - 25 mg/dL NILSA Comment:Testing performed by : [address], [place]., [address] Creatinine 5.57(H) 0.60 - 1.10 mg/dL NILSA Comment:Testing performed by : [address] [address] Glucose 148 70 - 199 mg/dL NILSA [...] was last revised 2022. Testing performed by: [address] [address] Calcium 9.5 8.5 - 10.3 mg/dL NILSA Comment:Testing performed by : [address] [address] Bilirubin, total <0.2 0.1 - 1.2 mg/dL NILSA Comment:Testing performed by : [address], [place]., [address] Protein, pl 6.7 6.5 - 8.5 g/dL NILSA Comment:Testing performed by : [address] [address] Albumin 3.5 3.5 - 5.0 g/dL NILSA Comment:Testing performed by : [address] [address] Alk phos 120 40 - 130 Units/L NILSA RODRIGES Comment:Testing performed by : [address] [address] ALT 15 7 - 45 Units/L NILSA Comment:Testing performed by : [address] [address] AST 16 10 - 45 Units/L NILSA Comment:Testing performed by : [address] [address] Blood 11/21/2024 4:15 AM CDT 11/21/2024 7:54 AM CDT us Notinfile Unknown LAB BLOOD ORDERABLES Final Res ult Performing Organization Address City/[facility]/ZIP Co de Phone Number CARLOS ENRIQUE[address] [place] [address] * Hepatitis B core antibody, total Blood (11/15/2024 5:15 AM CDT) Pathologist [facility] Hep B core IgG/IgM Nonreactive Nonreactive NILSA Comment:Testing performed by : [facility], [address] [place] [address] Blood 11/15/2024 5:15 AM CDT 11/15/2024 11:24 AM CDT us Notinfile Unknown LAB MICROBIOLOGY - GENERAL ORD ERABLES Final Result Performing Organization Address City/[facility]/ZIP Co de Phone Number [address] [place] [address] * Hepatitis B Surface Antigen Blood (11/15/2024 5:15 AM CDT) Pathologist [facility] HepBsAg Nonreactive Nonreactive [facility] Blood 11/15/2024 5:15 AM CDT 11/15/2024 12:58 PM CDT us Notinfile Unknown LAB MICROBIOLOGY - GENERAL ORD ERABLES Final Result Performing Organization Address [facility] Co de Phone Number NILSA [address] [facility] [place] [address] * (ABNORMAL) eGFR (11/14/2024 1:00 PM CDT) Pathologist [facility] eGFR 8(L) >=60 mL/min/1. 73 m2 NILSA [...] was last reviewed 2021. Testing performed by: [facility], [address] [place] [address]., [address] Blood 11/14/2024 1:00 PM CDT 11/14/2024 5:20 PM CDT us Notinfile Unknown LAB BLOOD ORDERABLES Final Res ult Performing Organization Address City/[facility]/ZIP Co de Phone Number NILSA [address] [facility] [place] [address] * Differential, auto (11/14/2024 1:00 PM CDT) Pathologist [facility] Neutrophil abs 6.30 1.50 - 6.50 K/cumm NILSA Comment:Testing performed by : [address], [place]., [address] Imm gran abs 0.05 0.00 - 0.10 K/cumm NILSA Comment:Testing performed by : [address], [place]., [address] Lymphocyte abs 2.83 0.80 - 3.30 K/cumm NILSA Comment:Testing performed by : [address], [place]., [address] Monocyte abs 0.71 0.20 - 0.80 K/cumm NILSA Comment:Testing performed by : [address], [place]., [address] Eosinophil abs 0.15 0.00 - 0.50 K/cumm NILSA Comment:Testing performed by : [address], [place]., [address] Basophil abs 0.04 0.00 - 0.10 K/cumm NILSA Comment:Testing performed by : [address] [address] Neutrophil pct 62.5 % [facility] Comment: Interpretive Data Percent cell count reference ranges are not reported, since discordance with absolute values may lead to misinterpretation of CBC data. Current Interpretive Data was last revised on 2017. Testing performed by: [address] [address] Imm gran pct 0.5 % NILSA Comment: Interpretive Data Percent cell count reference ranges are not reported, since discordance with absolute values may lead to misinterpretation of CBC data. Current Interpretive Data was last revised on 2017. Testing performed by: [address] [address] Lymphocyte pct 28.1 % [facility] Comment: Interpretive Data Percent cell count reference ranges are not reported, since discordance with absolute values may lead to misinterpretation of CBC data. Current Interpretive Data was last revised on 2017. Testing performed by: [address] [address] Monocyte pct 7.0 % [facility] Comment: Interpretive Data Percent cell count reference ranges are not reported, since discordance with absolute values may lead to misinterpretation of CBC data. Current Interpretive Data was last revised on 2017. Testing performed by: [address] [address] Eosinophil pct 1.5 % NILSA Comment: Interpretive Data Percent cell count reference ranges are not reported, since discordance with absolute values may lead to misinterpretation of CBC data. Current Interpretive Data was last revised on 2017. Testing performed by: [address] [address] Basophil pct 0.4 % NILSA Comment: Interpretive Data Percent cell count reference ranges are not reported, since discordance with absolute values may lead to misinterpretation of CBC data. Current Interpretive Data was last revised on 2017. Testing performed by: [address] [address] Blood 11/14/2024 1:00 PM CDT 11/14/2024 5:20 PM CDT us Notinfile Unknown LAB BLOOD ORDERABLES Final Res ult [facility] [address] [facility] Department of Laboratories [place], [place] [id number] * (ABNORMAL) CBC with auto differential (11/14/2024 1:00 PM CDT) WBC 10.08(H) 3.80 - 9.90 K/cumm NILSA Comment:Testing performed by : [address] [address] Hgb 9.4(L) 11.9 - 15.5 g/dL NILSA Comment:Testing performed by : [address] [address] Hct 30.5(L) 35.6 - 45.5 % NILSA Comment:Testing performed by : [address] [address] Plt 297 150 - 400 K/cumm NILSA Comment:Testing performed by : [address] [address] MPV 10.4 9.1 - 12.3 fL NILSA RODRIGES Comment:Testing performed by : [address] [address] RBC 2.84(L) 3.90 - 5.20 M/cumm NILSA RODRIGSE Comment:Testing performed by : [address] [address] MCV 107.4(H) 81.3 - 96.4 fL NILSA RODRIGES Comment:Testing performed by : [address] [address] MCH 33.1 27.1 - 33.3 pg NILSA RODRIGES Comment:Testing performed by : [address] [address] MCHC 30.8(L) 32.3 - 35.7 g/dL NILSA RODRIGES Comment:Testing performed by : [address], [address] RDW CV 16.1(H) 11.1 - 14.9 % NILSA Comment:Testing performed by : [address] [address] RDW SD 58.9(H) 35.7 - 48.1 fL NILSA Comment:Testing performed by : [address] [address] NRBC abs 0.14(H) 0.00 - 0.01 K/cumm NILSA Comment:Testing performed by : [address] [address] Blood 11/14/2024 1:00 PM CDT 11/14/2024 5:20 PM CDT us Notinfile Unknown LAB BLOOD ORDERABLES Final Res ult NILSA RODRIGES [address] [facility] Department [place] [address] * Hepatitis B surface antibody [...] - GENERAL ORD ERABLES Final Result NILSA [facility] Department [place] [address] * (ABNORMAL) Comprehensive metabolic panel (11/14/2024 1:00 PM CDT) Sodium 138 135 - 145 mmol/L NILSA Comment:Testing performed by : [address] [address] Potassium, pl 3.9 3.3 - 4.9 mmol/L NILSA Comment:Testing performed by : [address] [address] Chloride 101 97 - 110 mmol/L NILSA Comment:Testing performed by : [address] [address] CO2 22 22 - 32 mmol/L NILSA Comment:Testing performed by : [address] [address] Anion gap 15 2 - 15 mmol/L NILSA Comment:Testing performed by : [address] [address] BUN 52(H) 6 - 25 mg/dL NILSA Comment:Testing performed by : [address] [address] Creatinine 5.47(H) 0.60 - 1.10 mg/dL NILSA Comment:Testing performed by : [address] [address] Glucose 136 70 - 199 mg/dL NILSA [...] was last revised 2022. Testing performed by: [address] [address] Calcium 9.8 8.5 - 10.3 mg/dL NILSA Comment:Testing performed by : [address] [address] Bilirubin, total 0.2 0.1 - 1.2 mg/dL NILSA Comment:Testing performed by : [address] [address] Protein, pl 7.5 6.5 - 8.5 g/dL NILSA Comment:Testing performed by : [address] [address] Albumin 3.9 3.5 - 5.0 g/dL NILSA Comment:Testing performed by : [address] [address] Alk phos 128 40 - 130 Units/L NILSA Comment:Testing performed by : [address] [address] ALT 24 7 - 45 Units/L [facility] Comment:Testing performed by : [address] [address] AST 18 10 - 45 Units/L NILSA Comment:Testing performed by : [address] [address] Blood 11/14/2024 1:00 PM CDT 11/14/2024 5:20 PM CDT us Notinfile Unknown LAB BLOOD ORDERABLES Final Res ult Performing Organization Address [facility] Co de Phone Number NILSA [address] [facility] [place] [address] * (ABNORMAL) eGFR (11/13/2024 5:35 AM CDT) [...] was last reviewed 2021. Testing performed by: [address] [address] Blood 11/13/2024 5:35 AM CDT 11/13/2024 8:55 AM CDT us Notinfile Unknown LAB BLOOD ORDERABLES Final Res ult Performing Organization Address [facility]/ZIP Co de Phone Number NILSA [address] [facility] [place], [place] [id number] * (ABNORMAL) CBC with auto differential (11/13/2024 5:35 AM CDT) WBC 9.10 3.80 - 9.90 K/cumm NILSA Comment:Testing performed by : [address] [address] Hgb 8.9(L) 11.9 - 15.5 g/dL NILSA Comment:Testing performed by : [address] [address] Hct 28.4(L) 35.6 - 45.5 % [facility] Comment:Testing performed by : [address] [address] Plt 270 150 - 400 K/cumm NILSA Comment:Testing performed by : [address] [address] MPV 10.3 9.1 - 12.3 fL NILSA Comment:Testing performed by : [address] [address] RBC 2.70(L) 3.90 - 5.20 M/cumm NILSA Comment:Testing performed by : [address] [address] MCV 105.2(H) 81.3 - 96.4 fL NILSA Comment:Testing performed by : [address] [address] MCH 33.0 27.1 - 33.3 pg [facility] Comment:Testing performed by : [address] [address] MCHC 31.3(L) 32.3 - 35.7 g/dL NILSA Comment:Testing performed by : [address] [address] RDW CV 15.9(H) 11.1 - 14.9 % NILSA Comment:Testing performed by : [address] [address] RDW SD 57.1(H) 35.7 - 48.1 fL NILSA Comment:Testing performed by : [address] [address] NRBC abs 0.33(H) 0.00 - 0.01 K/cumm NILSA Comment:Testing performed by : [address] [address] Blood 11/13/2024 5:35 AM CDT 11/13/2024 8:55 AM CDT us Notinfile Unknown LAB BLOOD ORDERABLES Final Res ult NILSA RODRIGES [address] [facility] Department [place] [address] * (ABNORMAL) Manual Differential (11/13/2024 5:35 AM CDT) Differential Manual NILSA Comment:Testing performed by : [address] [address] Cells Counted 100 NILSA Comment:Testing performed by : [address] [address] Neutrophil abs 5.46 1.50 - 6.50 K/cumm NILSA Comment:Testing performed by : [address] [address] Lymphocyte abs 2.73 0.80 - 3.30 K/cumm NILSA Comment:Testing performed by : [address] [address] Monocyte abs 0.82(H) 0.20 - 0.80 K/cumm NILSA Comment:Testing performed by : [address] [address] Eosinophil abs 0.09 0.00 - 0.50 K/cumm NILSA Comment:Testing performed by : [address] [address] Neutrophil pct 60.0 % NILSA Comment: Interpretive Data Percent cell count reference ranges are not reported, since discordance with absolute values may lead to misinterpretation of CBC data. Current Interpretive Data was last revised on 2017. Testing performed by: [address] [address] Lymphocyte pct 30.0 % NILSA Comment: Interpretive Data Percent cell count reference ranges are not reported, since discordance with absolute values may lead to misinterpretation of CBC data. Current Interpretive Data was last revised on 2017. Testing performed by: [address] [address] Monocyte pct 9.0 % NILSA Comment: Interpretive Data Percent cell count reference ranges are not reported, since discordance with absolute values may lead to misinterpretation of CBC data. Current Interpretive Data was last revised on 2017. Testing performed by: [address] [address] Eosinophil pct 1.0 % NILSA Comment: Interpretive Data Percent cell count reference ranges are not reported, since discordance with absolute values may lead to misinterpretation of CBC data. Current Interpretive Data was last revised on 2017. Testing performed by: [address] [address] RBC morphology Present(A) NILSA Comment:Testing performed by : [address] [address] Anisocytosis Moderate(A ) NILSA Comment:Testing performed by : [address] [address] Macrocytes 8-15/HPF(A ) NILSA Comment:Testing performed by : [address] [address] Schistocytes 1-2/HPF(A) NILSA Comment:Testing performed by : [address] [address] Platelet clumping Present(A) NILSA Comment:Testing performed by : [address] [address] Blood 11/13/2024 5:35 AM CDT 11/13/2024 8:55 AM CDT us Notinfile Unknown LAB BLOOD ORDERABLES Final Res ult NILSA [address] [facility] Department of Laboratories [place], [place] [id number] * (ABNORMAL) Comprehensive metabolic panel (11/13/2024 5:35 AM CDT) Sodium 139 135 - 145 mmol/L NILSA Comment:Testing performed by : [address] [address] Potassium, pl 4.2 3.3 - 4.9 mmol/L [facility] Comment:Testing performed by : [address] [address] Chloride 102 97 - 110 mmol/L [facility] Comment:Testing performed by : [address], [place]., [address] CO2 25 22 - 32 mmol/L [facility] Comment:Testing performed by : [address] [address] Anion gap 12 2 - 15 mmol/L [facility] Comment:Testing performed by : [address] [address] BUN 30(H) 6 - 25 mg/dL [facility] Comment:Testing performed by : [address] [address] Creatinine 4.07(H) 0.60 - 1.10 mg/dL [facility] Comment:Testing performed by : [address] [address] Glucose 144 70 - 199 mg/dL [facility] Comment: Interpretive Data Fasting glucose >/= [...] was last revised 2022. Testing performed by: [address] [address] Calcium 9.4 8.5 - 10.3 mg/dL [facility] Comment:Testing performed by : [address] [address] Bilirubin, total 0.2 0.1 - 1.2 mg/dL [facility] Comment:Testing performed by : [address] [address] Protein, pl 7.0 6.5 - 8.5 g/dL NILSA Comment:Testing performed by : [address] [address] Albumin 3.7 3.5 - 5.0 g/dL NILSA Comment:Testing performed by : [address] [address] Alk phos 127 40 - 130 Units/L NILSA Comment:Testing performed by : [address] [address] ALT 21 7 - 45 Units/L NILSA Comment:Testing performed by : [address] [address] AST 22 10 - 45 Units/L NILSA Comment:Testing performed by : [address] [address] Blood 11/13/2024 5:35 AM CDT 11/13/2024 8:55 AM CDT us Notinfile Unknown LAB BLOOD ORDERABLES Final Res ult Performing Organization Address City/[facility]/ZIP Co de Phone Number [address] [place] [address] * POCT glucose (11/05/2024 11:49 AM CDT) [facility] Glucose, POC 187 70 - 199 mg/dL Glucose comment 1 RN/MD Notified [facility] Blood 11/05/2024 11:4 9 AM CDT 11/05/2024 11:49 AM CDT Juan J Heller MD LAB POCT ORDERABLES - DEVICE Final Result Performing Organization Address City/[facility]/ZIP Co de Phone Number [address] [place] [address] * (ABNORMAL) eGFR (11/05/2024 6:52 AM CDT) [facility] eGFR 8(L) >=60 mL/min/1. 73 m2 Comment: [...] 11/05/2024 7:12 AM CDT Brad Sebastien Smallwood SWITCH OPERATOR LAB BLOOD ORDERABLES Fin al Result [place] [address] [facility] Department [place] [address] * Differential, auto (11/05/2024 6:52 AM CDT) Neutrophil abs 5.74 1.50 - 6.50 K/cumm Imm gran abs 0.05 0.00 - 0.10 K/cumm [facility] Lymphocyte abs 1.98 0.80 - 3.30 K/cumm [facility] Monocyte abs 0.73 0.20 - 0.80 K/cumm [facility] Eosinophil abs 0.13 0.00 - 0.50 K/cumm [facility] Basophil abs 0.03 0.00 - 0.10 K/cumm [facility] Neutrophil pct 66.3 % [facility] Comment: Interpretive Data Percent cell count reference ranges are not reported, since discordance with absolute values may lead to misinterpretation of CBC data. Current Interpretive Data was last revised on 2017. Imm gran pct 0.6 % [facility] Comment: Interpretive Data Percent cell count reference ranges are not reported, since discordance with absolute values may lead to misinterpretation of CBC data. Current Interpretive Data was last revised on 2017. Lymphocyte pct 22.9 % [facility] Comment: Interpretive Data Percent cell count reference ranges are not reported, since discordance with absolute values may lead to misinterpretation of CBC data. Current Interpretive Data was last revised on 2017. Monocyte pct 8.4 % [facility] Comment: Interpretive Data Percent cell count reference ranges are not reported, since discordance with absolute values may lead to misinterpretation of CBC data. Current Interpretive Data was last revised on 2017. Eosinophil pct 1.5 % [facility] Comment: Interpretive Data Percent cell count reference ranges are not reported, since discordance with absolute values may lead to misinterpretation of CBC data. Current Interpretive Data was last revised on 2017. Basophil pct 0.3 % [facility] Comment: Interpretive Data Percent cell count reference ranges are not reported, since discordance with absolute values may lead to misinterpretation of CBC data. Current Interpretive Data was last revised on 2017. Blood 11/05/2024 6:52 AM CDT 11/05/2024 7:12 AM CDT us Brad Sebastien Smallwood NP LAB BLOOD ORDERABLES Fin al Result [facility] [address] [facility] Department [place] [address] * (ABNORMAL) CBC with auto differential (11/05/2024 6:52 AM CDT) Pathologist [facility] WBC 8.66 3.80 - 9.90 K/cumm Hgb 8.6(L) 11.9 - 15.5 g/dL [facility] Hct 26.6(L) 35.6 - 45.5 % [facility] Plt 215 150 - 400 K/cumm [facility] MPV 10.4 9.1 - 12.[address] [facility] RBC 2.60(L) 3.90 - 5.20 M/cumm [facility] MCV 102.3(H) 81.3 - 96.[address] [facility] MCH 33.1 27.1 - 33.[address] [facility] MCHC 32.3 32.3 - 35.7 g/dL [facility] RDW CV 13.8 11.1 - 14.9 % [facility] RDW SD 51.4(H) 35.7 - 48.[address] [facility] NRBC abs 0.09(H) 0.00 - 0.01 K/cumm [facility] Blood 11/05/2024 6:52 AM CDT 11/05/2024 7:12 AM CDT us Brad Sebastien Smallwood SWITCH OPERATOR LAB BLOOD ORDERABLES Fin al Result [facility] [address] [facility] Department [place] [address] * (ABNORMAL) Basic metabolic panel (11/05/2024 6:52 AM CDT) Sodium 135 135 - 145 mmol/L Potassium, pl 4.5 3.3 - 4.9 mmol/L [facility] Chloride 96(L) 97 - 110 mmol/L [facility] CO2 28 22 - 32 mmol/L [facility] Anion gap 11 2 - 15 mmol/L [facility] BUN 34(H) 6 - 25 mg/dL [facility] Creatinine 5.23(H) 0.60 - 1.10 mg/dL [facility] Glucose 145 70 - 199 mg/dL [facility] Comment: Interpretive Data Fasting glucose >/= [...] 2022. Calcium 9.0 8.5 - 10.3 mg/dL [facility] Blood 11/05/2024 6:52 AM CDT 11/05/2024 7:12 AM CDT Brad Smallwood NP LAB BLOOD ORDERABLES Fin al Result Performing Organization Address [facility] de Phone Number NILSA [address] [address] * (ABNORMAL) POCT glucose (11/04/2024 9:22 PM CDT) Glucose, POC 223(H) 70 - 199 mg/dL Blood 11/04/2024 9:22 PM CDT 11/04/2024 9:22 PM CDT Juan J Heller MD LAB POCT ORDERABLES - DEVICE Final Result Performing Organization Address [facility] de Phone Number [address] [place] [address] * (ABNORMAL) POCT glucose (11/04/2024 4:33 PM CDT) Glucose, POC 240(H) 70 - 199 mg/dL Glucose comment 1 Use This Result [facility] Glucose comment 2 RN/MD Notified [facility] Blood 11/04/2024 4:33 PM CDT 11/04/2024 4:33 PM CDT JuanJ Heller MD LAB POCT ORDERABLES - DEVICE Final Result Performing Organization Address [facility] de Phone Number [address] [place] [address] * POCT glucose (11/04/2024 11:12 AM CDT) Glucose, POC 177 70 - 199 mg/dL Glucose comment 1 RN/MD Notified [facility] Blood 11/04/2024 11:1 2 AM CDT 11/04/2024 11:12 AM CDT Juan J Heller MD LAB POCT ORDERABLES - DEVICE Final Result Performing Organization Address City/[facility]/ZIP Co de Phone Number NILSA [address] [address] * POCT glucose (11/04/2024 9:37 AM CDT) Glucose, POC 138 70 - 199 mg/dL Blood 11/04/2024 9:37 AM CDT 11/04/2024 9:37 AM CDT Juan J Heller MD LAB POCT ORDERABLES - DEVICE Final Result Performing Organization Address [facility] Co de Phone Number NILSA [address] [address] * POCT glucose (11/04/2024 6:09 AM CDT) [facility] Glucose, POC 190 70 - 199 mg/dL Blood 11/04/2024 6:09 AM CDT 11/04/2024 6:09 AM CDT Juan J Heller MD LAB POCT ORDERABLES - DEVICE Final Result Performing Organization Address [facility] Co de Phone Number [address] [address] * (ABNORMAL) eGFR (11/04/2024 4:16 AM CDT) [facility] Signature eGFR 6(L) >=60 mL/min/1. 73 m2 Comment: [...] 4:35 AM CDT us Brad Sebastien Smallwood SWITCH OPERATOR LAB BLOOD ORDERABLES Fin al Result [facility] [address] [facility] Department [place] [address] * Differential, auto (11/04/2024 4:16 AM CDT) Pathologist [facility] Neutrophil abs 4.99 1.50 - 6.50 K/cumm Imm gran abs 0.05 0.00 - 0.10 K/cumm [facility] Lymphocyte abs 2.56 0.80 - 3.30 K/cumm [facility] Monocyte abs 0.70 0.20 - 0.80 K/cumm [facility] Eosinophil abs 0.15 0.00 - 0.50 K/cumm [facility] Basophil abs 0.03 0.00 - 0.10 K/cumm [facility] Neutrophil pct 58.7 % [facility] Comment: Interpretive Data Percent cell count reference ranges are not reported, since discordance with absolute values may lead to misinterpretation of CBC data. Current Interpretive Data was last revised on 2017. Imm gran pct 0.6 % [facility] Comment: Interpretive Data Percent cell count reference ranges are not reported, since discordance with absolute values may lead to misinterpretation of CBC data. Current Interpretive Data was last revised on 2017. Lymphocyte pct 30.2 % [facility] Comment: Interpretive Data Percent cell count reference ranges are not reported, since discordance with absolute values may lead to misinterpretation of CBC data. Current Interpretive Data was last revised on 2017. Monocyte pct 8.3 % [facility] Comment: Interpretive Data Percent cell count reference ranges are not reported, since discordance with absolute values may lead to misinterpretation of CBC data. Current Interpretive Data was last revised on 2017. Eosinophil pct 1.8 % [facility] Comment: Interpretive Data Percent cell count reference ranges are not reported, since discordance with absolute values may lead to misinterpretation of CBC data. Current Interpretive Data was last revised on 2017. Basophil pct 0.4 % [facility] Comment: Interpretive Data Percent cell count reference ranges are not reported, since discordance with absolute values may lead to misinterpretation of CBC data. Current Interpretive Data was last revised on 2017. Blood 11/04/2024 4:16 AM CDT 11/04/2024 4:35 AM CDT us Brad Sebastien Smallwood SWITCH OPERATOR LAB BLOOD ORDERABLES Fin al Result [facility] [address] [facility] Department [place] [address] * (ABNORMAL) CBC with auto differential (11/04/2024 4:16 AM CDT) WBC 8.48 3.80 - 9.90 K/cumm Hgb 7.3(L) 11.9 - 15.5 g/dL [facility] Hct 22.2(L) 35.6 - 45.5 % [facility] Plt 196 150 - 400 K/cumm [facility] MPV 10.4 9.1 - 12.[address] [facility] RBC 2.24(L) 3.90 - 5.20 M/cumm [facility] MCV 99.1(H) 81.3 - 96.[address] [facility] MCH 32.6 27.1 - 33.[address] [facility] MCHC 32.9 32.3 - 35.7 g/dL [facility] RDW CV 13.4 11.1 - 14.9 % [facility] RDW SD 48.3(H) 35.7 - 48.[address] [facility] NRBC abs 0.02(H) 0.00 - 0.01 K/cumm [facility] Blood 11/04/2024 4:16 AM CDT 11/04/2024 4:[address] [facility] LAB BLOOD ORDERABLES Fin al Result Performing Organization Address [facility] Co de Phone Number NILSA [address] [place] [address] * (ABNORMAL) Basic metabolic panel (11/04/2024 4:16 AM CDT) [facility] Sodium 135 135 - 145 mmol/L Potassium, pl 4.7 3.3 - 4.9 mmol/L [facility] Chloride 95(L) 97 - 110 mmol/L [facility] CO2 25 22 - 32 mmol/L [facility] Anion gap 15 2 - 15 mmol/L [facility] BUN 57(H) 6 - 25 mg/dL [facility] Creatinine 6.58(H) 0.60 - 1.10 mg/dL [facility] Glucose 153 70 - 199 mg/dL [facility] Comment: Interpretive Data Fasting glucose >/= [...] 2022. Calcium 8.3(L) 8.5 - 10.3 mg/dL [facility] Blood 11/04/2024 4:16 AM CDT 11/04/2024 4:35 AM CDT [facility] [employer] Nbafin SWITCH OPERATOR LAB BLOOD ORDERABLES Fin al Result Performing Organization Address [facility] Co de Phone Number NILSA [address] [place] [address] * (ABNORMAL) POCT glucose (11/03/2024 8:27 PM CDT) Glucose, POC 222(H) 70 - 199 mg/dL Glucose comment 1 RN/MD Notified [facility] Blood 11/03/2024 8:27 PM CDT 11/03/2024 8:27 PM CDT Juan J Heller MD LAB POCT ORDERABLES - DEVICE Final Result Performing Organization Address [facility] de Phone Number [address] [address] * (ABNORMAL) POCT glucose (11/03/2024 3:45 PM CDT) Glucose, POC 217(H) 70 - 199 mg/dL Glucose comment 1 Use This Result [facility] Glucose comment 2 RN/ Notified NILSA Blood 11/03/2024 3:45 PM CDT 11/03/2024 3:45 PM CDT Juan J Heller MD LAB POCT ORDERABLES - DEVICE Final Result Performing Organization Address [facility] de Phone Number [address] [address] * MRI Brain WO Contrast (11/03/2024 1:17 [...] Hyperostosis frontalis interna. ORBITS: No acute abnormality. Hamilton ocular lenses replaced bilaterally. PARANASAL SINUSES AND MASTOIDS: Tiny focus of opacifying material in the dependent left sphenoid sinuses. Slight scattered fluid about the yevse-whucxlo-kwxy-left mastoid air cells. Scattered fluid OTHER: No other significant finding. IMPRESSION: Within the limitations of patient motion artifact, no acute intracranial process with chronic findings as above. THIS IS AN ELECTRONICALLY VERIFIED FINAL REPORT 11/03/2024 1:26 PM - Electronically signed by Redd Hendrickson M.D. CHANDA T: Report ID: [id number] Reading Location: [id number] Procedure Note Redd Hendrickson MD - 11/03/2024 EXAM DESCRIPTION: MRI BRAIN WO CONTRAST REASON FOR STUDY: Altered mental status of unspecified duration. Noprovision of focal neurologic deficits. No provided history of trauma or inciting and/or aggravating events. No provided past medical or surgical history. TECHNIQUE: Multiplanar imaging includes non-contrasted T1, T2, FLAIR, and diffusion with ADC map sequences. Additional sequence(s) sensitive [employer]. Images stored on PACS. Patient motion artifact [...] Hyperostosis frontalis interna. ORBITS: No acute abnormality. Hamilton ocular lenses replaced bilaterally. PARANASAL SINUSES AND MASTOIDS: Tiny focus of opacifying material in the dependent left sphenoid sinuses. Slight scattered fluid about the basyr-thukvda-xfvo-left mastoid air cells. Scattered fluid OTHER: No other significant finding. IMPRESSION: Within the limitations of patient motion artifact, no acute intracranial process with chronic findings as above. THIS IS AN ELECTRONICALLY VERIFIED FINAL REPORT 11/03/2024 1:26 PM - Electronically signed by Redd Hendrickson M.D. CHANDA T: Report ID: [id number] Reading Location: [id number] Juan J Heller MD IMG MRI PROCEDURES Final Result * (ABNORMAL) POCT glucose (11/03/2024 11:14 AM CDT) Glucose, POC 259(H) 70 - 199 mg/dL Glucose comment 1 Use This Result NILSA RODRIGES Glucose comment 2 RN/MD Notified NILSA RODRIGES Blood 11/03/2024 11:1 4 AM CDT 11/03/2024 11:14 AM CDT Juan J Heller MD LAB POCT ORDERABLES - DEVICE Final Result Performing Organization Address City/[facility] Co de Phone Number NILSA [address] [address] * POCT glucose (11/03/2024 7:17 AM CDT) Glucose, POC 139 70 - 199 mg/dL Glucose comment 1 Use This Result [facility] Glucose comment 2 RN/MD Notified [facility] Blood 11/03/2024 7:17 AM CDT 11/03/2024 7:17 AM CDT Juan J Heller MD LAB POCT ORDERABLES - DEVICE Final Result Performing Organization Address [facility] de Phone Number CARLOS ENRIQUE[address] [address] * (ABNORMAL) eGFR (11/03/2024 2:33 AM CDT) [facility] eGFR 10(L) >=60 mL/min/1. 73 m2 Comment: [...] CDT 11/03/2024 3:06 AM CDT us Brad Ivismichael lC SWITCH OPERATOR LAB BLOOD ORDERABLES Fin al Result NILSA [address] [facility] Department [place] [address] * Differential, auto (11/03/2024 2:33 AM CDT) Neutrophil abs 5.20 1.50 - 6.50 K/cumm Imm gran abs 0.03 0.00 - 0.10 K/cumm [facility] Lymphocyte abs 2.47 0.80 - 3.30 K/cumm [facility] Monocyte abs 0.66 0.20 - 0.80 K/cumm [facility] Eosinophil abs 0.14 0.00 - 0.50 K/cumm [facility] Basophil abs 0.04 0.00 - 0.10 K/cumm [facility] Neutrophil pct 60.9 % [facility] Comment: Interpretive Data Percent cell count reference ranges are not reported, since discordance with absolute values may lead to misinterpretation of CBC data. Current Interpretive Data was last revised on 2017. Imm gran pct 0.4 % [facility] Comment: Interpretive Data Percent cell count reference ranges are not reported, since discordance with absolute values may lead to misinterpretation of CBC data. Current Interpretive Data was last revised on 2017. Lymphocyte pct 28.9 % [facility] Comment: Interpretive Data Percent cell count reference ranges are not reported, since discordance with absolute values may lead to misinterpretation of CBC data. Current Interpretive Data was last revised on 2017. Monocyte pct 7.7 % [facility] Comment: Interpretive Data Percent cell count reference ranges are not reported, since discordance with absolute values may lead to misinterpretation of CBC data. Current Interpretive Data was last revised on 2017. Eosinophil pct 1.6 % [facility] Comment: Interpretive Data Percent cell count reference ranges are not reported, since discordance with absolute values may lead to misinterpretation of CBC data. Current Interpretive Data was last revised on 2017. Basophil pct 0.5 % [facility] Comment: Interpretive Data Percent cell count reference ranges are not reported, since discordance with absolute values may lead to misinterpretation of CBC data. Current Interpretive Data was last revised on 2017. Blood 11/03/2024 2:33 AM CDT 11/03/2024 3:03 AM CDT Brad [employer] [facility] SWITCH OPERATOR LAB BLOOD ORDERABLES Fin al Result Performing Organization Address [facility] Co de Phone Number [facility] [address] [place] [address] * (ABNORMAL) CBC with auto differential (11/03/2024 2:33 AM CDT) WBC 8.54 3.80 - 9.90 K/cumm Hgb 7.4(L) 11.9 - 15.5 g/dL [facility] Hct 22.8(L) 35.6 - 45.5 % [facility] Plt 195 150 - 400 K/cumm [facility] MPV 10.8 9.1 - 12.[address] [facility] RBC 2.25(L) 3.90 - 5.20 M/cumm [facility] MCV 101.3(H) 81.3 - 96.[address] [facility] MCH 32.9 27.1 - 33.[address] [facility] MCHC 32.5 32.3 - 35.7 g/dL [facility] RDW CV 13.3 11.1 - 14.9 % [facility] RDW SD 49.3(H) 35.7 - 48.[address] [facility] NRBC abs 0.00 0.00 - 0.01 K/cumm [facility] Blood 11/03/2024 2:33 AM CDT 11/03/2024 3:03 AM CDT [employer] SWITCH OPERATOR LAB BLOOD ORDERABLES Fin al Result Performing Organization Address [facility] Co de Phone Number [address] [place] [address] * (ABNORMAL) Basic metabolic panel (11/03/2024 2:33 AM CDT) Sodium 135 135 - 145 mmol/L Potassium, pl 4.1 3.3 - 4.9 mmol/L [facility] Chloride 95(L) 97 - 110 mmol/L [facility] CO2 27 22 - 32 mmol/L [facility] Anion gap 13 2 - 15 mmol/L [facility] BUN 38(H) 6 - 25 mg/dL [facility] Creatinine 4.56(H) 0.60 - 1.10 mg/dL [facility] Glucose 131 70 - 199 mg/dL [facility] Comment: Interpretive Data Fasting glucose >/= [...] 2022. Calcium 8.0(L) 8.5 - 10.3 mg/dL [facility] Blood 11/03/2024 2:33 AM CDT 11/03/2024 3:03 AM CDT us Brad Smallwood NP LAB BLOOD ORDERABLES Antonio al Result [facility] [address] [facility] Department [place] [address] * POCT glucose (11/02/2024 9:40 PM CDT) Pathologist [facility] Glucose, POC 157 70 - 199 mg/dL Glucose comment 1 RN/ Notified [facility] Blood 11/02/2024 9:40 PM CDT 11/02/2024 9:40 PM CDT us Juan J Heller MD LAB POCT ORDERABLES - DEVICE Final Result Performing Organization Address [facility] Co de Phone Number NILSA [address] [facility] [place] [address] * Ammonia (11/02/2024 6:56 PM CDT) Ammonia 24 <=50 mcmol/L Comment: Please note on 2023 the unit of measure changed from mcg/dL to mcmol/L. Current Interpretive Data was last revised on 2023. Blood 11/02/2024 6:56 PM CDT 11/02/2024 7:04 PM CDT Juan J Heller MD LAB BLOOD ORDERABLE S Final Result Performing Organization Address [facility] Co de Phone Number NILSA [address] [place] [address] * CT Head WO Contrast (11/02/2024 6:31 [...] Salvador Bronson M.D. KT T: Report ID: [id number] Reading Location: [id number] Procedure Note Salvador Bronson MD - 11/02/2024 [...] Salvador Bronson M.D. KT T: Report ID: [id number] Reading Location: [id number] Juan J Heller MD IM CT PROCEDURES F inal Result * (ABNORMAL) POC Blood Gas and Chemistries, Arterial - (11/02/2024 6:17 PM CDT) pH, art POC 7.45 7.35 - 7.45 pCO2, art POC 40 35 - [address] [facility] pO2, art POC 95 83 - [address] [facility] HCO3, art (Calc) POC 28 20 - 30 mmol/L [facility] Base excess, art POC 4 mmol/L [facility] Comment: Interpretive Data No reference range established. Current interpretive data was last revised 2020. O2 Sat, art (Calc) POC 95 94 - 98 % [facility] Oxy Hgb, art POC 95.4(H) 90.0 - 95.0 % [facility] Met Hgb, art POC 0.0 0.0 - 1.9 % [facility] Carboxy Hgb, art POC 0.0 0.0 - 2.9 % [facility] Hemoglobin, art POC 8.8(L) 11.9 - 15.5 g/dL [facility] Blood 11/02/2024 6:17 PM CDT 11/02/2024 6:17 PM CDT Juan J Heller MD LAB POCT ORDERABLES - DEVICE Final Result Performing Organization Address City/[facility] Co de Phone Number [address] [place] [address] * POCT glucose (11/02/2024 5:13 PM CDT) Glucose, POC 150 70 - 199 mg/dL Glucose comment 1 RN/MD Notified [facility] Blood 11/02/2024 5:13 PM CDT 11/02/2024 5:13 PM CDT Juan J Heller MD LAB POCT ORDERABLES - DEVICE Final Result Performing Organization Address [facility] Co de Phone Number [address] [place] [address] * POCT glucose (11/02/2024 12:32 PM CDT) Glucose, POC 173 70 - 199 mg/dL Glucose comment 1 RN/MD Notified [facility] Blood 11/02/2024 12:3 2 PM CDT 11/02/2024 12:32 PM CDT Juan J Heller MD LAB POCT ORDERABLES - DEVICE Final Result Performing Organization Address City/[facility] Co de Phone Number [address] [place] [address] * POCT glucose (11/02/2024 7:50 AM CDT) Glucose, POC 184 70 - 199 mg/dL Glucose comment 1 RN/MD Notified [facility] Blood 11/02/2024 7:50 AM CDT 11/02/2024 7:50 AM CDT Juan J Heller MD LAB POCT ORDERABLES - DEVICE Final Result Performing Organization Address [facility] Co de Phone Number [address] [address] * Hepatitis B surface antibody (immune status) [...] (immune status) index 628.0 mIUnits/m L [facility] Blood 11/02/2024 7:14 AM CDT 11/02/2024 7:32 AM CDT Rohan Funes MD LAB MICROBIOLOGY - GENERAL ORDERABLES Final Result Performing Organization Address [facility] Co de Phone Number [address] [place] [address] * Hepatitis B Surface Antigen Blood (11/02/2024 7:14 AM CDT) HepBsAg Nonreactive Nonreactive Blood 11/02/2024 7:14 AM CDT 11/02/2024 7:32 AM CDT Rohan Funes MD LAB MICROBIOLOGY - GENERAL ORDERABLES Final Result Performing Organization Address [facility] Co de Phone Number [address] [place] [address] * (ABNORMAL) eGFR (11/02/2024 3:48 AM CDT) [facility] eGFR 8(L) >=60 mL/min/1. 73 m2 Comment: [...] BLOOD ORDERABLES Fin al Result NILSA RODRIGES [address] [facility] [place] [place] [address] * Differential, auto (11/02/2024 3:48 AM CDT) [facility] Neutrophil abs 5.44 1.50 - 6.50 K/cumm Imm gran abs 0.03 0.00 - 0.10 K/cumm [facility] Lymphocyte abs 2.16 0.80 - 3.30 K/cumm [facility] Monocyte abs 0.62 0.20 - 0.80 K/cumm [facility] Eosinophil abs 0.12 0.00 - 0.50 K/cumm [facility] Basophil abs 0.02 0.00 - 0.10 K/cumm [facility] Neutrophil pct 64.9 % [facility] Comment: Interpretive Data Percent cell count reference ranges are not reported, since discordance with absolute values may lead to misinterpretation of CBC data. Current Interpretive Data was last revised on 2017. Imm gran pct 0.4 % [facility] Comment: Interpretive Data Percent cell count reference ranges are not reported, since discordance with absolute values may lead to misinterpretation of CBC data. Current Interpretive Data was last revised on 2017. Lymphocyte pct 25.7 % [facility] Comment: Interpretive Data Percent cell count reference ranges are not reported, since discordance with absolute values may lead to misinterpretation of CBC data. Current Interpretive Data was last revised on 2017. Monocyte pct 7.4 % [facility] Comment: Interpretive Data Percent cell count reference ranges are not reported, since discordance with absolute values may lead to misinterpretation of CBC data. Current Interpretive Data was last revised on 2017. Eosinophil pct 1.4 % [facility] Comment: Interpretive Data Percent cell count reference ranges are not reported, since discordance with absolute values may lead to misinterpretation of CBC data. Current Interpretive Data was last revised on 2017. Basophil pct 0.2 % [facility] Comment: Interpretive Data Percent cell count reference ranges are not reported, since discordance with absolute values may lead to misinterpretation of CBC data. Current Interpretive Data was last revised on 2017. Blood 11/02/2024 3:48 AM CDT 11/02/2024 4:01 AM CDT us Brad Sebastien Smallwood SWITCH OPERATOR LAB BLOOD ORDERABLES Fin al Result [facility] [address] [facility] Department [place] [address] * (ABNORMAL) CBC with auto differential (11/02/2024 3:48 AM CDT) Pathologist [facility] WBC 8.39 3.80 - 9.90 K/cumm Hgb 7.2(L) 11.9 - 15.5 g/dL [facility] Hct 22.3(L) 35.6 - 45.5 % [facility] Plt 186 150 - 400 K/cumm [facility] MPV 10.9 9.1 - 12.[address] [facility] RBC 2.20(L) 3.90 - 5.20 M/cumm [facility] MCV 101.4(H) 81.3 - 96.[address] [facility] MCH 32.7 27.1 - 33.[address] [facility] MCHC 32.3 32.3 - 35.7 g/dL [facility] RDW CV 13.5 11.1 - 14.9 % [facility] RDW SD 49.7(H) 35.7 - 48.[address] [facility] NRBC abs 0.00 0.00 - 0.01 K/cumm [facility] Blood 11/02/2024 3:48 AM CDT 11/02/2024 4:01 AM CDT [facility] SWITCH OPERATOR LAB BLOOD ORDERABLES Fin al Result Performing Organization Address [facility] de Phone Number [address] [place] [address] * Folate (11/02/2024 3:48 AM CDT) [facility] Folic acid 7.0 >=5.0 ng/mL Blood 11/02/2024 3:48 AM CDT 11/02/2024 4:01 AM CDT [facility] SWITCH OPERATOR LAB BLOOD ORDERABLES Fin al Result Performing Organization Address [facility] de Phone Number [address] [place] [address] * (ABNORMAL) Basic metabolic panel (11/02/2024 3:48 AM CDT) [facility] Sodium 135 135 - 145 mmol/L Potassium, pl 4.6 3.3 - 4.9 mmol/L [facility] Chloride 99 97 - 110 mmol/L [facility] CO2 24 22 - 32 mmol/L [facility] Anion gap 12 2 - 15 mmol/L [facility] BUN 64(H) 6 - 25 mg/dL [facility] Creatinine 5.43(H) 0.60 - 1.10 mg/dL [facility] Glucose 227(H) 70 - 199 mg/dL [facility] Comment: Interpretive Data Fasting glucose >/= [...] 2022. Calcium 9.0 8.5 - 10.3 mg/dL [facility] Blood 11/02/2024 3:48 AM CDT 11/02/2024 4:01 AM CDT [facility] LAB BLOOD ORDERABLES Fin al Result Performing Organization Address City/[facility] Co de Phone Number [address] [place] [address] * Lactate (11/01/2024 10:05 PM CDT) [facility] Lactate 1.4 0.7 - 2.0 mmol/L Blood 11/01/2024 10:0 5 PM CDT 11/01/2024 10:15 PM CDT Brad Purigen [facility] LAB BLOOD ORDERABLES Fin al Result Performing Organization Address City/[facility] Co de Phone Number [address] [place] [address] * (ABNORMAL) Erythrocyte sedimentation rate (11/01/2024 10:05 PM CDT) Pathologist [facility] Erythrocyte sedimentation rate 43(H) 1 - 30 mm/hr Blood 11/01/2024 10:0 5 PM CDT 11/01/2024 10:15 PM CDT [facility] Tabernero Rufin SWITCH OPERATOR LAB BLOOD ORDERABLES Fin al Result Performing Organization Address [facility] Co de Phone Number NILSA [address] [place] [address] * CRP (acute phase) (11/01/2024 10:05 PM CDT) CRP 3.6 <=10.0 mg/L Blood 11/01/2024 10:0 5 PM CDT 11/01/2024 10:15 PM CDT [facility] Tab[facility] SWITCH OPERATOR LAB BLOOD ORDERABLES Fin al Result Performing Organization Address [facility] Co de Phone Number [address] [place] [address] * Phosphorus (11/01/2024 10:05 PM CDT) Phosphorus, pl 4.3 2.3 - 4.5 mg/dL Blood 11/01/2024 10:0 5 PM CDT 11/01/2024 10:15 PM CDT [facility] SWITCH OPERATOR LAB BLOOD ORDERABLES Fin al Result Performing Organization Address [facility] Co de Phone Number [address] [address] * Magnesium (11/01/2024 10:05 PM CDT) Magnesium 1.5 1.4 - 2.5 mg/dL Blood 11/01/2024 10:0 5 PM CDT 11/01/2024 10:15 PM CDT [facility] Tabernero Rufin SWITCH OPERATOR LAB BLOOD ORDERABLES Fin al Result Performing Organization Address [facility] de Phone Number [address] [address] * (ABNORMAL) Hemoglobin A1c (11/01/2024 10:05 PM CDT) [facility] Hgb A1C 7.1(H) 4.0 - 5.6 % Estimated Average Glucose 157 mg/dL [facility] Comment: The ADA recommends reporting an estimated Average Glucose (eAG) with all Hemoglobin A1c results using the equation derived from a study of 507 normal and diabetic adults. Minority populations were underrepresented and children were not included. (Diabetes Care 31:3831-1178, 2008). The eAG is not equivalent to a fasting glucose. Blood 11/01/2024 10:0 5 PM CDT 11/01/2024 10:15 PM CDT [facility] SWITCH OPERATOR LAB BLOOD ORDERABLES Fin al Result Performing Organization Address [facility] de Phone Number [address] [address] * Vitamin B12 (11/01/2024 10:05 PM CDT) [facility] Vitamin B12 584 230 - 1,250 pg/mL Blood 11/01/2024 10:0 5 PM CDT 11/01/2024 10:15 PM CDT [facility] SWITCH OPERATOR LAB BLOOD ORDERABLES Fin al Result Performing Organization Address [facility] de Phone Number [address] [address] * (ABNORMAL) Lipid panel (11/01/2024 10:05 PM CDT) [facility] Cholesterol 98 30 - 199 mg/dL Comment: [...] last revised on 2018. Chol/HDL ratio [address] [facility] Blood 11/01/2024 10:0 5 PM CDT 11/01/2024 10:15 PM CDT us Brad Smallwood NP LAB BLOOD ORDERABLES Fin al Result Performing Organization Address [facility] Co de Phone Number [place] [address] [facility] [place] [address] * (ABNORMAL) POCT glucose (11/01/2024 9:59 PM CDT) [facility] Glucose, POC 217(H) 70 - 199 mg/dL Glucose comment 1 Use This Result [facility] Glucose comment 2 RN/MD Notified NILSA Blood 11/01/2024 9:59 PM CDT 11/01/2024 9:59 PM CDT us Des Lopez MD LAB POCT ORDERABLES - DEVICE F inal Result Performing Organization Address City/[facility] Co de Phone Number [place] [address] [facility] [place] [address] * (ABNORMAL) Urinalysis reflex to microscopic and culture Urine (11/01/2024 7:23 PM CDT) Color, ur Straw Yellow Clarity, ur Clear Clear [facility] Specific gravity, ur 1.007 1.003 - 1.[address] [facility] pH, urine 7.[address] [facility] Comment: Interpretive Data U rine pH is affected by diet, medications, systemic acid-base disturbances, and renal tubular function. pH may affect urinary stone formation. For example, urine pH below 6.0 may help reduce the tendency for calcium phosphate stones and pH greater than 6.0 may reduce the tendency for uric acid stone formation. Source: [facility] Current Interpretive Data was last revised on 2017 Protein, ur ql 1+(A) Negative [facility] Glucose, ur ql 3+(A) Negative [facility] Ketones, ur Negative Negative [facility] Bilirubin, ur Negative Negative [facility] Blood, ur Negative Negative [facility] Urobilinogen, ur <2.0 <2.0 mg/dL [facility] Nitrite, ur Negative Negative [facility] Leukocyte esterase, ur 4+(A) Negative [facility] UA reflex comment Reflex to microscopic UA will be performed. [facility] Urine 11/01/2024 7:23 PM CDT 11/01/2024 7:37 PM CDT Tahmina Palencia MD LAB MICROBIOLOGY - GEN ERAL ORDERABLES Final Result [facility] [address] [facility] Department [place] [address] * (ABNORMAL) Urinalysis, microscopic only (11/01/2024 7:23 PM CDT) WBC, ur >50(A) 0 - 5 /HPF RBC, ur 0-2 0 - 2 /HPF [facility] Epithelial cells, squamous, ur 1-5 0 - 5 /HPF [facility] Culture Reflex Comment Reflex to urine culture will be performed. [facility] Urine 11/01/2024 7:23 PM CDT 11/01/2024 7:37 PM CDT us Tahmina Palencia MD LAB URINE ORDERABLES F inal Result NILSA [address] [facility] [place] [address] * (ABNORMAL) Urine culture Urine (11/01/2024 7:23 PM CDT) Report Final Report: Greater than or equal to 100,000 colonies/mL of Proteus mirabilis Plus growth of clinically insignificant bacterial shruti. (.) Comment:Testing performed by : [facility], [address] [place] [address] Organism PROTEUS MIRABILIS NILSA Organism PLUS GROWTH OF CLINICALLY INSIGNIFICANT SHRUTI. NILSA Urine 11/01/2024 7:23 PM CDT 11/02/2024 12:58 AM CDT Narrative NILSA - 11/04/2024 10:48 AM CDT Urine culture reflexed based upon urinalysis results. Testing performed by [facility] ([phone]) Organism Antibiotic Method Susceptibility Proteus mirabilis Ampicillin [...] - GEN ERAL ORDERABLES Final Result NILSA [facility] [place] [address] * CT Chest Abdomen Pelvis W Contrast [...] Salvador Bronson M.D. KT T: Report ID: [id number] Reading Location: [id number] Procedure Note Salvador Bronson MD - 11/01/2024 [...] Salvador Bronson M.D. KT T: Report ID: [id number] Reading Location: [place] [address] Tahmina Palencia MD IMG CT PROCEDURES Blessing [...] and well aerated. ORBITS: No acute abnormality. Hamilton ocular lenses replaced bilaterally. OTHER: No other significant abnormality. INTRACRANIAL VESSELS ENTERPRISE OF KIM: The anterior, middle, posterior cerebral [...] signed by Redd ARMAS T: Report ID: [id number] Reading Location: [id number] Procedure Note Redd Hendrickson MD - 11/01/2024 [...] and well aerated. ORBITS: No acute abnormality. Hamilton ocular lenses replaced bilaterally. OTHER: No other significant abnormality. INTRACRANIAL VESSELS ENTERPRISE OF KIM: The anterior, middle, posterior cerebral [...] Redd Hendrickson M.D. CHANDA T: Report ID: [id number] Reading Location: [place] [address] us Tahmina Palencia MD IMG CT PROCEDURES [...] BLOOD ORDERABLES F inal Result NILSA RODRIGES [address] [facility] Department [place] [address] * CT Head WO Contrast [...] Shayne Landaverde M.D. AM T: Report ID: [id number] Reading Location: [id number] Procedure Note Shayne Landaverde MD - 11/01/2024 [...] Shayne Landaverde M.D. AM T: Report ID: [id number] Reading Location: [id number] Brittney CUEVA IM CT PROCEDURES Final Re [...] James Javier M.D. MZ T: Report ID: [id number] Reading Location: [place] [address] Procedure Note James Javier MD - 11/01/2024 [...] James Javier M.D. MZ T: Report ID: [id number] Reading Location: [place] [address] us Tahmina Palencia MD IMG XR PROCEDURES [...] LAB BLOOD ORDERABLES F inal Result [place] [id number] [facility] Department of Laboratories [place], [place] [id number] * (ABNORMAL) eGFR (11/01/2024 2:03 PM CDT) [...] MD LAB BLOOD ORDERABLES F inal Result [facility] [address] [facility] Department [place] [address] * (ABNORMAL) Differential, auto (11/01/2024 2:03 PM CDT) Neutrophil abs 7.67(H) 1.50 - 6.50 K/cumm Imm gran abs 0.05 0.00 - 0.10 K/cumm [facility] Lymphocyte abs 1.67 0.80 - 3.30 K/cumm [facility] Monocyte abs 0.43 0.20 - 0.80 K/cumm [facility] Eosinophil abs 0.11 0.00 - 0.50 K/cumm [facility] Basophil abs 0.02 0.00 - 0.10 K/cumm [facility] Neutrophil pct 77.1 % [facility] Comment: Interpretive Data Percent cell count reference ranges are not reported, since discordance with absolute values may lead to misinterpretation of CBC data. Current Interpretive Data was last revised on 2017. Imm gran pct 0.5 % [facility] Comment: Interpretive Data Percent cell count reference ranges are not reported, since discordance with absolute values may lead to misinterpretation of CBC data. Current Interpretive Data was last revised on 2017. Lymphocyte pct 16.8 % [facility] Comment: Interpretive Data Percent cell count reference ranges are not reported, since discordance with absolute values may lead to misinterpretation of CBC data. Current Interpretive Data was last revised on 2017. Monocyte pct 4.3 % [facility] Comment: Interpretive Data Percent cell count reference ranges are not reported, since discordance with absolute values may lead to misinterpretation of CBC data. Current Interpretive Data was last revised on 2017. Eosinophil pct 1.1 % [facility] Comment: Interpretive Data Percent cell count reference ranges are not reported, since discordance with absolute values may lead to misinterpretation of CBC data. Current Interpretive Data was last revised on 2017. Basophil pct 0.2 % [facility] Comment: Interpretive Data Percent cell count reference ranges are not reported, since discordance with absolute values may lead to misinterpretation of CBC data. Current Interpretive Data was last revised on 2017. Blood 11/01/2024 2:03 PM CDT 11/01/2024 2:05 PM CDT us Tahmina Palencia MD LAB BLOOD ORDERABLES F inal Result NILSA [address] [facility] Department [place] [address] * (ABNORMAL) Pro B-type natriuretic peptide (11/01/2024 [...] ORDERABLES F inal Result Performing Organization Address [facility] Co de Phone Number [facility] [address] [address] * (ABNORMAL) CBC with auto differential (11/01/2024 2:03 PM CDT) WBC 9.95(H) 3.80 - 9.90 K/cumm Hgb 8.8(L) 11.9 - 15.5 g/dL [facility] Hct 27.2(L) 35.6 - 45.5 % [facility] Plt 207 150 - 400 K/cumm [facility] MPV 10.6 9.1 - 12.[address] [facility] RBC 2.66(L) 3.90 - 5.20 M/cumm [facility] MCV 102.3(H) 81.3 - 96.[address] [facility] MCH 33.1 27.1 - 33.[address] [facility] MCHC 32.4 32.3 - 35.7 g/dL [facility] RDW CV 13.4 11.1 - 14.9 % [facility] RDW SD 50.4(H) 35.7 - 48.[address] [facility] NRBC abs 0.00 0.00 - 0.01 K/cumm [facility] Blood 11/01/2024 2:03 PM CDT 11/01/2024 2:05 PM CDT us Tahmina Palencia MD LAB BLOOD ORDERABLES F inal Result Performing Organization Address City/[facility]/ZIP Co de Phone Number [address] [place] [address] * (ABNORMAL) Comprehensive metabolic panel (11/01/2024 2:03 PM CDT) Sodium 133(L) 135 - 145 mmol/L Potassium, pl 4.3 3.3 - 4.9 mmol/L [facility] Chloride 95(L) 97 - 110 mmol/L [facility] CO2 23 22 - 32 mmol/L [facility] Anion gap 15 2 - 15 mmol/L [facility] BUN 55(H) 6 - 25 mg/dL [facility] Creatinine 4.86(H) 0.60 - 1.10 mg/dL [facility] Glucose 290(H) 70 - 199 mg/dL [facility] Comment: Interpretive Data Fasting glucose >/= [...] 2022. Calcium 9.2 8.5 - 10.3 mg/dL [facility] Bilirubin, total 0.2 0.1 - 1.2 mg/dL [facility] Protein, pl 7.0 6.5 - 8.5 g/dL [facility] Albumin 3.7 3.5 - 5.0 g/dL [facility] Alk phos 116 40 - 130 Units/L [facility] ALT 58(H) 7 - 45 Units/L [facility] AST 26 10 - 45 Units/L [facility] Blood 11/01/2024 2:03 PM CDT 11/01/2024 2:05 PM CDT us Tahmina Palencia MD LAB BLOOD ORDERABLES F inal Result NILSA [address] [facility] Department [place] [address] * ECG 12 lead (11/01/2024 1:59 PM CDT) [facility] Ventricular Rate EKG/Min 73 BPM [facility] Atrial Rate 73 BPM [facility] AR-Interval (MSEC) 146 ms [facility] QRS-Interval (MSEC) 58 ms [facility] QT-Interval (MSEC) 396 ms [facility] QTc 436 ms [facility] P Sawyer 47 degrees [facility] R Sawyer 2 degrees [facility] T Sawyer 66 degrees [facility] Diagnosis Normal sinus rhythm Normal ECG When compared with ECG of 12-JUL-2024 11:48, No significant change was found Confirmed by DIAMOND GUTIERREZ M.D. ([id number]) on 11/02/2024 11:07:33 PM [facility] 11/01/2024 1:59 PM CDT 11/02/2024 11:07 PM CDT us Tahmina Palencia MD ECG ORDERABLES Final Result [facility] * (ABNORMAL) Urinalysis reflex to microscopic and culture Urine, clean voided (10/31/2024 9:47 AM CDT) Color, ur Mikayla Yellow Comment:Testing performed by : [address] [address] Clarity, ur Turbid(A) Clear NILSA Comment:Testing performed by : [address] [address] Specific gravity, ur 1.008 1.003 - 1.030 NILSA Comment:Testing performed by : [address] [address] pH, urine 8.0 NILSA Comment: Interpretive Data U rine pH is affected by diet, medications, systemic acid-base disturbances, and renal tubular function. pH may affect urinary stone formation. For example, urine pH below 6.0 may help reduce the tendency for calcium phosphate stones and pH greater than 6.0 may reduce the tendency for uric acid stone formation. Source: [employer] Current Interpretive Data was last revised on 2017 Testing performed by: [address] [address] Protein, ur ql 2+(A) Negative NILSA Comment:Testing performed by : [address] [address] Glucose, ur ql 3+(A) Negative NILSA Comment:Testing performed by : [address], [place]., [address] Ketones, ur Negative Negative NILSA Comment:Testing performed by : [address], [place]., [address] Bilirubin, ur Negative Negative NILSA Comment:Testing performed by : [address], [place]., [address] Blood, ur Trace(A) Negative NILSA Comment:Testing performed by : [address], [place]., [address] Urobilinogen, ur <2.0 <2.0 mg/dL NILSA Comment:Testing performed by : [address], [place]., [address] Nitrite, ur Negative Negative NILSA Comment:Testing performed by : [address] [address] Leukocyte esterase, ur 4+(A) Negative NILSA Comment:Testing performed by : [address], [place]., [address] UA reflex comment Reflex to microscopic UA will be performed. NILSA Comment:Testing performed by : [address], [place]., [address] Urine, clean voided 10/31/2024 9:47 AM CDT 10/31/2024 9:50 AM CDT us Cherelle Corcoran MD LAB MICROBIOLOGY - GENERAL ORDERABLES Final Result NILSA [address] [facility] Department [place] [address] * (ABNORMAL) Urinalysis, microscopic only (10/31/2024 9:47 AM CDT) WBC, ur 6-10(A) 0 - 5 /HPF Comment:Testing performed by : [address], [place]., [address] RBC, ur 0-2 0 - 2 /HPF NILSA Comment:Testing performed by : [facility], [address] [place] [address]., [address] Bacteria, ur Trace(A) NILSA Comment:Testing performed by : [address] [address] Culture Reflex Comment Reflex conditions for urine culture (WBC >10) not met. NILSA Comment:Testing performed by : [address] [address] Urine, clean voided 10/31/2024 9:47 AM CDT 10/31/2024 9:50 AM CDT us Cherelle Corcoran MD LAB URINE ORDERAB LES Final Result Performing Organization Address City/State/[facility] Co de Phone Number NILSA [address] [facility] Department [place] [address] * XR Chest PA Lateral 2 Views [...] Edwardo Louis M.D. RW: ADAMARIS Report ID: [id number] Reading Location: [id number] Procedure Note Edwardo Louis MD - 10/24/2024 [...] Edwardo Louis M.D. RW: ADAMARIS Report ID: [id number] Reading Location: [place] [address] Cherelle Corcoran MD IMG XR PROCEDURES Final Result * CT CORONARY CALCIUM SCORING (10/17/2024 9:30 AM CDT) Anatomical Region Laterality Modality Chest Computed Tomogra phy Historical Provider MD MERIDA CT PROCEDURES Final R esult * Diabetic Eye Exam (07/27/2024 12:37 PM FLAMER AFTER LASTING) Historical Provider HEALTH MAINTENANCE Final Result * Colonoscopy (03/01/2024 8:49 AM CDT) Anatomical Region Laterality Modality Other Narrative Procedure Note Jaya Grier MD - 03/01/2024 8:49 AM CDT [facility]OSCOPY Patient Name: Barbara Chakraborty Procedure Date: 03/01/2024 8:49 AM Date of : 1950 Admit Type: Outpatient Age: 73 Gender: Female Attending MD: Jaya Grier M.D. Room: [facility] ROOM 06 Note Status: Finalized [...] The scope was passed under direct vision.The [id number]-PB497P colonoscope was introduced through theanus and advanced [...] On: 03/01/2024 8:49 AM Recognized by the [employer] for promoting quality [...] taking vitamin-D. History of end-stage renal disease. Architectural Examiner/Model: Modlar A (S/N [id number]) CLINICAL INFORMATION: Current height: 61 inches Maximum [...] Rafaela Paulino M.D. TW: TW Report ID: [id number] Reading Location: [id number] Procedure Note Rafaela Paulino MD - 01/22/2024 EXAM DESCRIPTION: DEXA AXIAL SKELETON BONE DENSITY 1 OR MORE SITES REASON FOR STUDY: 73 y/o year old F with given history of: Post menopausal status. History of taking vitamin-D. History of end-stagerenal disease. Architectural Examiner/Model: Modlar A (S/N [id number]) CLINICAL INFORMATION: Current height: 61 inches Maximum [...] see below follow up recommendations. [facility] causes of low bone mineral [...] Rafaela Paulino M.D. TW: TW Report ID: [id number] Reading Location: [id number] us Cherelle Corcoran MD IMG DXA PROCEDURE [...] age 40, based on guidelines of the [employer] (ACR Practice Parameter for the Performance of Screening and Diagnostic Mammography) and [employer]. For women [...] either breast on mammogram. Cherelle Corcoran MD IM MAMMO PROCEDU RES Final Result * Hepatitis panel, acute Blood (10/15/2023 6:50 AM CDT) Hep A IgM Nonreactive Nonreactive Comment: Interpretive Data: If Hep A IgM Ab is reported as Equivocal, a new sample should be drawn in two weeks for testing. Current interpretive data was last revised on 19. Hep B core IgM Nonreactive Nonreactive [facility] Comment: Interpretive Data If HepB Core IgM Ab is reported as Equivocal, a new sample should be drawn in two weeks for testing. Current interpretive data was last revised on 19. Hep C Ab Nonreactive Nonreactive [facility] Comment: Interpretive Data Nonreactive: Antibodies to HCV [...] revised on 2019. HepBsAg Nonreactive Nonreactive [facility] Blood 10/15/2023 6:50 AM CDT 10/15/2023 7:07 AM CDT Jimbo Strauss MD LAB MICROBIOLOGY - GENERAL FREDDY [place] Final Result Performing Organization Address City/[facility] Co de Phone Number NILSA [address] Department [place] [address] * (ABNORMAL) Albumin Creatinine Ratio, Urine (10/10/2022 11:39 AM CDT) Albumin Ur 3,240.2 mg/L NILSA Comment: Interpretive Data No reference range established. Current interpretive data was last revised 2018. Testing performed by: [address] [address] Creatinine Ur 74.8 mg/dL NILSA Comment: Interpretive Data No reference range established. Current interpretive data was last revised 2018. Testing performed by: [address] [address] Albumin Creatinine Ratio, Ur 4,332(H) 1 - 29 mg/g NILSA Comment:Testing performed by : [address] [address] Urine 10/10/2022 11:3 9 AM CDT 10/10/2022 1:45 PM CDT Markie Ryan MD LAB URINE ORDERABLES Final Re sult Performing Organization Address City/[facility] Co de Phone Number NILSA [address] [facility] Department [place] [address] from Last 3 Months or Most Recently Relevant to Health Maintenance Insurance MEDICARE MEDICARE IDPA MEDICARE IDPA MEDICARE [facility] Advance Directives For more information, please contact: [phone] Documents on File Type Date Recorded Patient Boarding House Manager Expl anation ADVANCE DIRECTIVE 07/15/2024 7:58 AM Power of Senior Field Engineer-Medical ADVANCE DIRECTIVE 02/02/2024 12:34 PM Erik r of Senior Field Engineer-Medical * Full Code (Latest Code Status on [...] Areli Gonzalez Health Care Agent Care Teams Media Supervisor Relationship Specialty Start Date End Date Cherelle Corcoran MD PCP - General Family Medicine 08/30/19 Mark Queen MD Consulting Physician Infectious Diseases 01/10/20 Rudolph Welch MD [address] [facility] [address] [place] [address] Consulting Physician Infectious Diseases 12/05/22 Markie Ryan MD [address] [facility] [address] [place] [address] Consulting Physician Nephrology 12/05/22 [place] [address] [address] Consulting Physician Nephrology 10/22/23 Jaya Grier MD [address] [facility] [address] [place] [address] Consulting Physician Gastroenterology 02/01/24 Edgardo Kauffman MD [address] [facility] [address] [facility] [address] [place] [address] Surgeon Vascular Surgery 07/15/24
--- OUTSIDE RECORDS SUMMARY | 2024-12-26 12:00 | XMS_ITS | Encounter Summary ---
Author Organization [facility] Healthcare Address [address] [place] [address] Care Team Providers Care Spectrographic Analyst Name Role Phone Cherelle Corcoran MD Primary Care Pro vider Mark Queen MD Unavailable [phone] Rudolph Welch MD Unavailable Markie Ryan MD Unavailable [phone] Jimbo Strauss MD Unavailable [phone] Jaya Grier MD Unavailable Edgardo Kauffman MD Unavailable Macrina Mike RN Unavailable Reason for Visit * Reason Onset Date Comments Wound Infection 09/21/2024 Weakness - Generalized 09/21/2024 Confusion 09/21/2024 Encounter Details Date Type Department Care Team ([facility] st Contact Info) Description 09/21/2024 Nurse Triage [facility] Medical Group Primary Care at [address] [phone] Cherelle Corcoran MD [facility] [address] Social History Tobacco Use Types [...] in a longterm (including now)? No 10/30/2023 PHQ-9 Answer Date [...] living in a longterm (including now)? No 04/20/2024 Personal Safety Answer Date Recorded Have you ever been in or are you currently in a harmful physical or emotional relationship or is someone making you feel afraid or unsafe? Denies 09/13/2024 Comments No Sex and Gender Information Value Date Recorded Sex Assigned at Not on file Legal Sex Female 9:03 AM TACTICAL DECEPTION PLANS OFFICER Gender Identity Female 02/08/2020 6:39 PM [...] in the wound Protocols used: Wound Infection [id number] * Telephone Encounter - Monserrat Gillis RN [...] on filedocumented in this encounter Care Teams Spectrographic Analyst Relationship Specialty Start Date End Date Cherelle Corcoran MD PCP - General Family Medicine 08/30/19 Mark Queen MD Consulting Physician Infectious Diseases 01/10/20 Rudolph Welch MD [address] [facility] [address] [place] [address] Consulting Physician Infectious Diseases 12/05/22 Markie Ryan MD [address] [facility] [address] [place] [address] Consulting Physician Nephrology 12/05/22 [place] [address] [facility] [address] [place] [address] Consulting Physician Nephrology 10/22/23 Jaya Grier MD [address] [facility] [address] [place] [address] Consulting Physician Gastroenterology 02/01/24 Edgardo Kauffman MD [address] [facility] [address] [facility] [address] [place] [address] Surgeon Vascular Surgery 07/15/24 Macrina Mike RN [address] [place] [address] [address] [place] [address] Quality Consultant 11/07/24 11/30/24 documented as of this encounter
--- OUTSIDE RECORDS SUMMARY | 2024-12-26 12:00 | XMS_ITS | Encounter Summary ---
Author Organization [facility] Healthcare Address [address] [place] [address] Care Team Providers Care Dehydrogenation Operator Name Role Phone Cherelle Corcoran MD Primary Care Pro vider Mark Queen MD Unavailable [phone] Rudolph Welch MD Unavailable [phone] Markie Ryan MD Unavailable Jimbo Strauss MD Unavailable [phone] Jaya Grier MD Unavailable Edgardo Kauffman MD Unavailable Macrina Mike RN Unavailable Reason for Visit * Reason Onset Date Comments ARYA Questions 11/24/2024 Encounter Details Date Type Department Care Team ([facility] Contact Info) Description 11/24/2024 Telephone [facility] Medical [facility] Primary Care at [address] [phone] Cherelle Corcoran MD [facility] [address] ARYA Questions Social History Tobacco Use [...] In the past 12 months has e [employer], gas, oil, or water [employer] threatened to shut off services in your [...] you attend chur ch or congregational services? Patient unable to answer 11/07/2024 Do [...] in a care home (including now)? No 11/07/2024 Personal Safety Answer Date Recorded Have you ever been in or are you currently in a harmful physical or emotional relationship or is someone making you feel afraid or unsafe? Denies 11/01/2024 Comments No Sex and Gender Information Value Date Recorded Sex Assigned at Not on file Legal Sex Female 9:03 AM SHIPPING LEAD Gender Identity Female 02/08/2020 6:39 PM CDT Sexual Orientation Not on file documented as of this encounter Miscellaneous Notes * Telephone Encounter - [place]Caren sarah - 11/24/2024 4:06 PM CDT ARYA Questions (Message from [facility] Access Center-Senior Sales Administrator): Has patient been discharged at time of call? No Will patient be transferred to another inpatient facility (e.g. [facility], inpatient rehab, etc.)? No The patient was not discharged at the time of the call. Patient will need to be contacted after discharge to complete remaining questions. Date Admitted: 12.13.24 Tentative Discharge Date: 11.26.24 Facility Admitted To: [facility] Date of ARYA Appointment: 12.01.24 Additional Comments: patient still needs to be asked arya questions Does message need to be routed? Yes-Action Needed documented in this encounter Plan of Treatment Scheduled Procedures Name Priority Associated Diagnoses Date/Ti me COLONOSCOPY Iron deficiency anemia due to chronic blood loss documented as of this encounter Visit Diagnoses Not on filedocumented in this encounter Care Teams Dehydrogenation Operator Relationship Specialty Start Date End Date Cherelle Corcoran MD PCP - General Family Medicine 08/30/19 Mark Queen MD Consulting Physician Infectious Diseases 01/10/20 Rudolph Welch MD [address] [facility] [address] [place] [address] Consulting Physician Infectious Diseases 12/05/22 Markie Ryan MD [address] [facility] [address] [place] [address] Consulting Physician Nephrology 12/05/22 [place] [address] [address] Consulting Physician Nephrology 10/22/23 Jaya Grier MD [address] [facility] [address] [place] [address] Consulting Physician Gastroenterology 02/01/24 Edgardo Kauffman MD [address] [facility] [address] [email or web address] [address] [place] [address] Surgeon Vascular Surgery 07/15/24 Macrina Mike RN [address] [place] [address] [address] [place] [address] Food Quality Tester 11/07/24 11/30/24 documented as of this encounter
--- OUTSIDE RECORDS SUMMARY | 2024-12-26 12:00 | XMS_ITS ---
[facility] Name [facility] Address [address] [place], [place] [address] Phone [phone] Organization [facility], NA DOCUMENT DISCLAIMER Multiple document versions may exist, please be sure you review the latest version. The information in the [facility] Continuity of Care Document represents a summary of certain health and medical information. It may not contain the complete medical history for the patient and should be independently verified. The represented time in the document is Eastern Time. PROBLEMS Problem Code Status Onset Date Weakness R53.1 Active November 30, 2024 Hypertensive urgency I16.0 Active November 07, 2024 Weakness R53.1 Active November 01, 2024 Altered mental status, unspecified R41.82 Active [...] 14, 2023 Moderate protein-calorie malnutrition E44.0 Act amanad November 03, 2023 Altered mental status, unspecified [...] kidney disease D63.1 Active October 21, 2023 shelter (current) use of insulin Z79.4 Active October [...] July 29, 2024 July 28, 2025 Active Home Medications Medication Instructions Dosage Route Start [...] 2 tablet ORAL October 05, 2024 Active cefdinir 300 mg Take by mouth once a day 1 capsule ORAL December 05, 2024 Active Easy Touch 32 gauge x 5/32 Use subcutaneously four times a day 1 needle subcutaneously February 02, 2024 Active Flonase Allergy Relief 50 mcg/actuation [place] into each nostril as directed as needed 2 spray NASAL November 07, 2024 Active gabapentin 100 mg Take by mouth as directed 100 mg ORAL June 07, 2024 Active Humalog KwikPen Insulin 100 unit/mL Inject subcutaneously as directed 4 unit SUBCUTANEOUS November 07, 2024 Active hydralazine 50 mg Take by mouth twice a day 1 tablet ORAL December 05, 2024 Active Lantus Solostar U-100 Insulin 100 unit/mL (3 mL) Inject subcutaneously every night 11 unit SUBCUTANEOUS November 07, 2024 Active pantoprazole 40 mg Take by mouth once a day 1 tablet ORAL November 07, 2024 Active Vitamin D3 125 mcg (5,000 unit) Take by mouth once a day 1 tablet ORAL November 07, 2024 Active Risperdal 2 mg Take by mouth once a day 1 tablet ORAL December 05, 2024 Discontinued VITAL SIGNS Post-Treatment Vital Signs Vital Sign Value Date / Time Blood Pressure-sitting 160/71 mmHg December 24, 2024 12:40 PM Blood Pressure-standing 116/60 mmHg December 24, 2024 12:40 PM Heart Rate 85 beats per minute December 24 12:40 PM Temperature 97.8 deg. F December 24, 2024 12 :40 PM Weight Vital Sign Value Date / Time Estimated Dry Weight 60 kg December 16 11:59 PM Pre-Dialysis 60.8 kg December 24, 2024 12 :40 PM Post-Dialysis 60.3 kg December 24, 2024 12 :40 PM Other Other Value Date / Time Height 157 cm November 05, 2023 12: 00 AM HEALTH CONCERNS Tuberculosis Testing TST Date Administered TST Date Read TST Result 10/29/2023 No information available No info rmation available LAB RESULTS Hematology Result Type Result Value Relevant Referen ce Range Interpretation Date Folate, Serum 7.1 ng/mL No Reference Ran ge Provided - June 06, 2024 Platelets 236 1000/mcL 130 - 400 1000/mcL - Rosendo ariel2024 WBC (No Diff) 6.34 1000/mcL 4.80 - 10.80 1000/mcL - July 19, 2024 Neutrophils 68.0 % 40.0 - 75.0 % - June Ferritin 1284 ng/mL 10 - 291 ng/mL High July Reticulocyte 1.14 % 0.80 - 2.10 % - July 26, 2024 Platelets 252 1000/mcL 130 - 400 1000/mcL - Febr uary 2024 Transferrin Sat. (Calc) 61 % 20 - 55 % High July 26 Folate, Serum 5.2 ng/mL No Reference Ran ge Provided - July 26, 2024 TIBC (Calc) 166 mcg/dL 185 - 515 mcg/dL Low ua2024 UIBC/TIBC 65 mcg/dL 155 - 355 mcg/dL Low July 26, 2024 WBC (No Diff) 8.10 1000/mcL 4.80 - 10.80 1000/mcL - July 26, 2024 Neutrophils 76.2 % 40.0 - 75.0 % High July UIBC/TIBC 151 mcg/dL 155 - 355 mcg/dL Low August TIBC (Calc) 262 mcg/dL 185 - 515 mcg/dL - August Transferrin Sat. (Calc) 42 % 20 - 55 % - August 24, 2024 Platelets 246 1000/mcL 130 - 400 1000/mcL - Alpesh h 2024 Reticulocyte 1.59 % 0.80 - 2.10 % - August 24, 2024 WBC (No Diff) 8.81 1000/mcL 4.80 - 10.80 1000/mcL - August 24, 2024 Neutrophils 64.3 % 40.0 - 75.0 % - August 24, 2024 Transferrin Sat. (Calc) 26 % 20 - 55 % - September 21, 2024 TIBC (Calc) 235 mcg/dL 185 - 515 mcg/dL - September UIBC/TIBC 173 mcg/dL 155 - 355 mcg/dL - September Neutrophils 69.9 % 40.0 - 75.0 % - September 21, 2024 Ferritin 719 ng/mL 10 - 291 ng/mL High September 21, 2024 WBC (No Diff) 8.22 1000/mcL 4.80 - 10.80 1000/mcL - September 21, 2024 Platelets 232 1000/mcL 130 - 400 1000/mcL - Apri l 2024 Reticulocyte 2.39 % 0.80 - 2.10 % High September 21, 2024 Hemoglobin x 3 23.7 % 36.0 - 48.0 % Low September 202024 Hemoglobin x 3 24.6 % 36.0 - 48.0 % Low September 212024 Neutrophils 61.3 % 40.0 - 75.0 % - October 20 25 CELENA 2.8 % 0.0 - 4.0 % - October 20, 2024 WBC (No Diff) 7.36 1000/mcL 4.80 - 10.80 1000/mcL - October 20, 2024 Eosinophil 2.4 % 0.0 - 7.0 % - October 20, 2024 Basophils 0.5 % 0.0 - 1.5 % - October 20, 2024 Lymphocytes 28.0 % 19.0 - 48.0 % - October 20 25 Monocytes 4.9 % 3.0 - 10.0 % - October 20, 2024 MCH 33.2 pg 27.0 - 31.0 pg High October 20 25 MCHC 32.6 g/dL 30.0 - 36.0 g/dL - October 20, 2024 Reticulocyte 3.32 % 0.80 - 2.10 % High October 20 025 Hemoglobin x 3 24 % 36.0 - 48.0 % Low October 20, 2024 Platelets 301 1000/mcL 130 - 400 1000/mcL - October 20, 2024 RDW 13.4 % 11.5 - 14.5 % - October 20 Ferritin 480 ng/mL 10 - 291 ng/mL High October 20 25 Transferrin Sat. (Calc) 33 % 20 - 55 % - October 20, 2024 TIBC (Calc) 234 mcg/dL 185 - 515 mcg/dL - October 20, 2024 UIBC/TIBC 156 mcg/dL 155 - 355 mcg/dL - October 20, 2024 Iron 78 mcg/dL 30 - 160 mcg/dL - October 20 Basophils 0.8 % 0.0 - 1.5 % - December 07, 2024 Eosinophil 2.0 % 0.0 - 7.0 % - December 07, 2024 Monocytes 4.7 % 3.0 - 10.0 % - December 07 Lymphocytes 17.8 % 19.0 - 48.0 % Low December 07 Neutrophils 72.5 % 40.0 - 75.0 % - December 07 HCT 36.6 % 37.0 - 47.0 % Low December 07 RBC 3.43 mill/mcL 4.20 - 5.40 mill/mcL Low December 07, 2024 WBC (No Diff) 8.99 1000/mcL 4.80 - 10.80 1000/mcL - December 07, 2024 CELENA 2.2 % 0.0 - 4.0 % - December 07, 2024 Ferritin 637 ng/mL 10 - 291 ng/mL High December 07 Transferrin Sat. (Calc) 33 % 20 - 55 % - December 07, 2024 TIBC (Calc) 230 mcg/dL 185 - 515 mcg/dL - November UIBC/TIBC 154 mcg/dL 155 - 355 mcg/dL Low December 07, 2024 Iron 76 mcg/dL 30 - 160 mcg/dL - December 07, 2024 Hemoglobin x 3 33.9 % 36.0 - 48.0 % Low November HGB 11.3 g/dL 12.0 - 16.0 g/dL Low December 07, 2024 RDW 16.0 % 11.5 - 14.5 % High December 07 MCHC 30.8 g/dL 30.0 - 36.0 g/dL - December 07, 2024 MCH 32.9 pg 27.0 - 31.0 pg High December 07 Reticulocyte 0.97 % 0.80 - 2.10 % - December 07, 2024 Platelets 302 1000/mcL 130 - 400 1000/mcL - December 07, 2024 Metabolic/Renal Result Type Result Value Relevant Referen ce Range Interpretation Date Vitamin B12 523 pg/mL 211 - 911 pg/mL - July 26, 2024 BUN 65 mg/dL 6 - 19 mg/dL High October 20, 2024 Bicarbonate 27 mEq/L 22 - 29 mEq/L - October 20 25 Chloride 101 mEq/L 96 - 108 mEq/L - October 20 25 Potassium 4.7 mEq/L 3.5 - 5.1 mEq/L - October 20 Sodium 140 mEq/L 136 - 145 mEq/L - October 20 BUN/Creat Ratio 12.1 10.0 - 20.0 - October 20, 2024 Creatinine, Serum 5.38 mg/dL 0.60 - 1.30 mg/dL High October 20, 2024 URR, Calc 60 % 65 - 80 % Low October 26, 2024 BUN, Post 20 mg/dL 6 - 19 mg/dL High October 26, 2024 BUN 50 mg/dL 6 - 19 mg/dL High October 26, 2024 Creatinine, Serum 5.15 mg/dL 0.60 - 1.30 mg/dL High December 07, 2024 BUN 43 mg/dL 6 - 19 mg/dL High December 07 Sodium 141 mEq/L 136 - 145 mEq/L - December 07, 2024 BUN/Creat Ratio 8.3 10.0 - 20.0 Low December 07, 2024 Potassium 4.3 mEq/L 3.5 - 5.1 mEq/L - December 07, 2024 Bicarbonate 26 mEq/L 22 - 29 mEq/L - December 07 Chloride 99 mEq/L 96 - 108 mEq/L - December 07 URR, Calc 60 % 65 - 80 % Low December 07, 2024 BUN, Post 17 mg/dL 6 - 19 mg/dL - December 07 HD Adequacy Result Type Result Value Relevant Referen ce Range Interpretation Date wstdKt/V without residual 2.5 No Reference Range Provided - October 26, 2024 spKt/V Daugirdas II (HHD) 0.95 No Reference Range Provided Normal October 26, 2024 wstdKt/V, residual 0.0 No Reference Range Provided - October 26, 2024 Simple Kt/V (Home HD Only) 0.92 No Reference Range Provided Normal October 26, 2024 wstdKt/V 2.5 No Reference Ran ge Provided - October 26, 2024 wstdKt/V 2.9 No Reference Ran ge Provided - December 07, 2024 wstdKt/V without residual 2.9 No Reference Range Provided - December 07, 2024 wstdKt/V, residual 0.0 No Reference Range Provided - December 07, 2024 Simple Kt/V (Home HD Only) 0.92 No Reference Range Provided Normal December 07, 2024 spKt/V Daugirdas II (HHD) 1.22 No Reference Range Provided Normal December 07, 2024 Bone/Mineral Result Type Result Value Relevant Referen ce Range Interpretation Date Magnesium 1.6 mg/dL 1.6 - 2.6 mg/dL - January Magnesium 1.9 mg/dL 1.6 - 2.6 mg/dL - May 12, 2024 Magnesium 1.8 mg/dL 1.6 - 2.6 mg/dL - June 06, 2024 PTH-Intact, Plasma 149 pg/mL 16 - 80 pg/mL High Jul ru2024 Magnesium 1.7 mg/dL 1.6 - 2.6 mg/dL - July 26, 2024 Vitamin D 25 Hydroxy 67.1 ng/mL 30.0 - 100.0 ng/mL - July 26, 2024 PTH-Intact, Plasma 175 pg/mL 16 - 80 pg/mL High Aug ch 2024 PTH-Intact, Plasma 175 pg/mL 16 - 80 pg/mL High Sep il 2024 PTH-Intact, Plasma 145 pg/mL 16 - 80 pg/mL High October 20, 2024 Magnesium 2.0 mg/dL 1.6 - 2.6 mg/dL - October 20, 025 Alkaline Phosphatase 113 U/L 35 - 104 U/L High Ma y 2024 Ca x P Product 38 0 - 54 - October 20 25 Phosphorus 4.0 mg/dL 2.6 - 4.5 mg/dL - October 20 025 Calcium, Total 9.5 mg/dL 8.4 - 10.2 mg/dL - October 20, 2024 Corrected Ca x P Product 39 0 - 54 - October 20, 2024 PTH-Intact, Plasma 275 pg/mL 16 - 80 pg/mL High Daniel e 2024 Phosphorus 3.7 mg/dL 2.6 - 4.5 mg/dL - December 07, 2024 Calcium, Total 9.6 mg/dL 8.4 - 10.2 mg/dL - December 07, 2024 Ca x P Product 36 0 - 54 - December 07 025 Corrected Ca x P Product 35 0 - 54 - December 07, 2024 Liver/Nutrition Result Type Result Value Relevant Reference Range Interpre tation Glucose 214 mg/dL 70 - 100 mg/dL High October 20 25 Total Protein 6.9 g/dL 6.0 - 8.5 g/dL - October 20, 2024 A/G Ratio 1.2 1.0 - 2.0 - October 20, 2024 Globulin (Calc) 3.1 g/dL 2.0 - 4.0 g/dL - October Albumin (BCG) 3.8 g/dL 3.5 - 5.2 g/dL - October 20, 2024 Total Protein 8.0 g/dL 6.0 - 8.5 g/dL - November Albumin (BCG) 4.2 g/dL 3.5 - 5.2 g/dL - November Glucose 192 mg/dL 70 - 100 mg/dL High December 07 025 A/G Ratio 1.1 1.0 - 2.0 - December 07, 2024 Globulin (Calc) 3.8 g/dL 2.0 - 4.0 g/dL - December 07, 2024 Immunochemistry Result Type Result Value Relevant Reference Range Interpre tation HCV s/co ratio 0.10 0.00 - 0.79 - June 06, 2024 HCV s/co ratio 0.04 0.00 - 0.79 - July 26, 2024 Trace Elements Result Type Result Value Relevant Reference Range Interpre tation Aluminum 8 mcg/L 0 - 10 mcg/L [...] NxStage Hemodialysis Data Element Value Order Date/Time December 16, 2024 Frequency 4X Week Treatment Days MonWedFriSun Dialyzer/Cartridge CAR 172 Therapy Fluid (dialysate) 2.0 K 45 Lacta te Estimated Treatment Time 210 min Volume per Treatment (Liters) 30 L Dialysate Flow Rate 8.6 L/hr Maximum Flow Fraction (%) 36% Maximum Ultrafiltration Rate 6 ml/Kg/hr Blood Flow Rate (mL/min) 400 mL/min Estimated Dry Weight 60 kg Dialysis Access Hemodialysis-CV Cath eter-Tunneled, Chest, [...] Type Dialysate Dialysis Access Meds-entered by patient December 20, 2024 Weight 62.5 kg Weight 60.4 kg 3:28 1 of 400 CAR-172 2K 45 La ctate Blood Pressure-sitting 178/92 mmHg Blood Pressure-sitting 12 8/52 mmHg 2 of 18 400 Blood Pressure-standing 169/64 mmHg Blood Pressure-standing 113/54 mmHg 3 of 18 400 Heart Rate 78 beats per minute Heart Rate 104 beats per minute 4 of 18 400 Temperature 98 deg. F Temperature 97.9 deg. F 5 of 18 400 - - - - 6 of 18 400 - - - - 7 of 18 - - - - - 8 of 18 400 - - - - 9 of 18 100 - - - - 10 of 18 400 - - - - 11 of 18 400 - - - - 12 of 18 400 - - - - 13 of 18 400 - - - - 14 of 18 400 - - - - 15 of 18 400 - - - - 16 of 18 - - - - - 17 of 18 - - - - - 18 of December 23, 2024 Weight 61.4 kg Weight 60.7 kg 3:27 1 of 14 400 CAR-172 2K 45 Lactate Hemodialysis-CV Catheter-Tunneled, Chest, Right Jugular Access Placed on July 15, 2024 Heparin 5000 Access Heparin 5000 Via Access Heparin 2100 Via Access Heparin 2000 Via Access Blood Pressure-sitting 150/80 mmHg Blood Pressure-sitting 13 2/64 mmHg 2 of 14 400 Blood Pressure-standing 156/66 mmHg Blood Pressure-standing 127/65 mmHg 3 of 14 400 Heart Rate 73 beats per minute Heart Rate 90 beats per minute 4 of 14 400 Temperature 97.7 deg. F Temperature 97.8 deg. F 5 of 14 40 0 - - - - 6 of 14 400 - - - - 7 of 14 400 - - - - 8 of 14 400 - - - - 9 of 14 400 - - - - 10 of 14 400 - - - - 11 of 14 400 - - - - 12 of 14 400 - - - - 13 - - - - - 14 of - December 24, 2024 Weight 60.8 kg Weight 60.3 kg 3:29 1 of 30 300 CAR-172 2K 45 Lactate Hemodialysis-CV Catheter-Tunneled, Chest, Right Jugular Access Placed on July 15, 2024 Heparin 5000 Access Heparin 5000 Via Access Heparin 2100 Via Access Heparin 2000 Via Access Blood Pressure-sitting 138/58 mmHg Blood Pressure-sitting 16 0/71 mmHg 2 of 30 400 Blood Pressure-standing 126/57 mmHg Blood Pressure-standing 116/60 mmHg 3 of 30 400 Heart Rate 73 beats per minute Heart Rate 85 beats per minute 4 of 30 400 Temperature 97.6 deg. F Temperature 97.8 deg. F 5 of 30 40 0 - - - - 6 of 30 400 - - - - 7 of 30 50 - - - - 8 of 30 400 - - - - 9 of 30 306 - - - - 10 of 30 278 - - - - 11 of 30 400 - - - - 12 of 30 - - - - - 13 of 30 400 - - - - 14 of 30 400 - - - - 15 of 30 400 - - - - 16 of 30 400 - - - - 17 of 30 400 - - - - 18 of 30 400 - - - - 19 of 30 400 - - - - 20 of 30 400 - - - - 21 of 30 400 - - - - 22 of 30 400 - - - - 23 of 30 237 - - - - 24 of 400 - - - - 25 of 400 - - - - 26 of 400 - - - - 27 of 30 400 - - - - of 30 400 - - - - of 30 400 - - - - 30 30 -
--- OUTSIDE RECORDS SUMMARY | 2024-12-26 12:00 | XMS_ITS | Encounter Summary ---
Author Organization [facility] Address [address] [place] [address] Care Team Providers Care Solar Energy Installation Manager Name Role Phone Cherelle Corcoran MD Primary Care Pro vider Mark Queen MD Unavailable [phone] Xenia Padilla LPN Unavailable Sarahy Schmidt EYEGLASS FITTER Unavailable Brandie Callejas MA Unavailable Unav ailable Xenia Padilla LPN Unavailable [phone] Samples, Melania Joel RN Unavailable Anam Costa LCSW Unavailable Unavailabl e Samples, Melania Joel RN Unavailable Rudolph Welch MD Unavailable [phone] Markie Ryan MD Unavailable [phone] Nadege Ramírez RN Unavailable Dulce Vega RN Unavailable Jimbo Strauss MD Unavailable [phone] Jaya Grier MD Unavailable Edgardo Kauffman MD Unavailable Macrina Mike RN Unavailable Encounter Details Date Type Department Care Team (Late st Contact Info) Description 12/26/2019 Telephone [facility] Nutrition and Diabetic Education [address] [facility] [place] [address] Anastasia Leblanc, RN Social History Tobacco Use Types Packs/Day Years Used Date Smoking Tobacco: Never Smokeless Tobacco: Never Alcohol Use Standard Drinks/Week Comments Not Currently 0 (1 standard drink = 0.6 oz pur e alcohol) PHQ-2 Answer Date Recorded PHQ-2 Score 0 08/30/2019 Comments No Sex and Gender Information Value Date Recorded Sex Assigned at Not on file Legal Sex Female 9:03 AM NATURAL SCIENCE MANAGER Gender Identity Female 02/08/2020 6:39 PM [...] 01/06/2020 01/06/2020 02/06/2021 5:0 0 AM CDT COVID: Suspected 12/10/2020 12/10/2020 12/24/2020 3:05 AM CDT COVID19 08/13/2021 08/13/2021 08/24/2021 3:05 AM NATURAL SCIENCE MANAGER COVID: Recovered Comment:Added based on recent COVID infection. 08/24/2021 08/26/2021 12/22/2021 3:05 AM C DT COVID: Suspected Comment:11/15/2021 pt is covid recovered 11/15/2021 11/15/2021 11/15/2021 3:32 PM C DT COVID: Suspected 11/15/2021 11/16/2021 11/16/2021 1:45 AM CDT Human metapneumovirus, conta ct + droplet 11/16/2021 11/16/2021 11/30/2021 3:05 AM C DT COVID: Suspected 05/08/2022 05/08/2022 05/08/2022 4:26 PM NATURAL SCIENCE MANAGER COVID: Suspected 06/19/2022 06/19/2022 06/19/2022 12:37 PM NATURAL SCIENCE MANAGER COVID: Suspected 08/01/2022 08/01/2022 08/01/2022 2:28 PM NATURAL SCIENCE MANAGER COVID: Suspected 10/02/2022 10/02/2022 10/02/2022 8:14 PM CDT MRSA Comment:Toe 11/08/22, 12/12/22 11/08/2022 12/12/2022 06/10/2023 3:05 AM NATURAL SCIENCE MANAGER COVID: Suspected 12/08/2022 12/08/2022 12/08/2022 8:17 PM CDT COVID: Suspected 07/27/2023 07/27/2023 07/28/2023 12:57 AM NATURAL SCIENCE MANAGER COVID: Suspected 10/29/2023 10/30/2023 10/30/2023 10:59 AM CDT 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 12/19/2023 12/19/2023 3:58 PM CDT 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 12/29/2023 06/26/2024 3:05 AM NATURAL SCIENCE MANAGER COVID: Suspected 04/19/2024 04/19/2024 04/20/2024 12:44 AM CDT COVID: Suspected 07/12/2024 07/12/2024 07/12/2024 12:39 PM NATURAL SCIENCE MANAGER COVID: Suspected 07/31/2024 07/31/2024 07/31/2024 2:06 PM NATURAL SCIENCE MANAGER documented as of this encounter Care Teams Solar Energy Installation Manager Relationship Specialty Start Date End Date Cherelle Corcoran MD PCP - General Family Medicine 08/30/19 Mark Queen MD Consulting Physician Infectious Diseases 01/10/20 Xenia Padilla LPN [employer] Architect 3/31/22 3/31/22 Sarahy Schmidt LPN [address] [place] [address] [address] [place] [address] ACO Care Metal Hanging Helper 11/27/21 12/25/21 Brandie Callejas MA Patient Sex Worker Or Escort 06/20/22 06/22/22 Xenia Padilla LPN [address] [place] [address] [address] [place] [address] Microsoft Architect 06/24/22 06/24/22 Samples, Melania Joel RN [address] [place] [address] [address] [place] [address] Microsoft Architect 07/22/22 08/21/22 Anam Costa LCSW [address] [place] [address] [address] [place] [address] Inspector Eyeglass 08/08/22 02/18/23 Samples, Melania Joel RN [address] [place] [address] [address] [place] [address] [employer] Architect 08/22/22 12/07/22 Rudolph Welch MD [address] [facility] [address] [place] [address] Consulting Physician Infectious Diseases 12/05/22 Markie Ryan MD [address] [facility] [address] [place] [address] Consulting Physician Nephrology 12/05/22 Nadege Ramírez RN [address] [place] [address] [address] [place] [address] Microsoft Architect 01/20/23 02/23/23 Dulce Vega RN [address] [place] [address] [address] [place] [address] Microsoft Architect 10/07/23 05/03/24 [place] [address] [facility] [address] [place] [address] Consulting Physician Nephrology 10/22/23 Jaya Grire MD [address] [facility] [address] [place] [address] Consulting Physician Gastroenterology 02/01/24 Edgardo Kauffman MD [address] [facility] [address] [facility] [address] [place] [address] Surgeon Vascular Surgery 07/15/24 Macrina Mike RN [address] [place] [address] [address] [place] [address] [employer] Architect 11/07/24 11/30/24 documented as of this encounter
--- OUTSIDE RECORDS SUMMARY | 2024-12-26 12:00 | XMS_ITS | Encounter Summary ---
Author Organization [facility] Address [address] [place] [address] Phone Care Team Providers Care Manager Van Name Role Phone Cherelle Corcoran MD Primary Care Pro vider QueenMark Perez MD Unavailable [phone] Rudolph Welch MD Unavailable [phone] Markie Ryan MD Unavailable [phone] Jimbo Strauss MD Unavailable [phone] Jaya Grier MD Unavailable Edgardo Kauffman MD Unavailable [phone] Reason for Visit * Reason Comments Diabetes Type 2 Encounter Details Date Type Department Care Team (Latest Contact Info) Description 12/26/2024 8:40 AM CDT Office Visit [facility] Endocrinology Metabolism and Lipid [address] [place] [address] Smith Gibbs MD [address] [place] [address] Type 2 diabetes mellitus with chronic kidney disease on chronic dialysis, with long-term current use of insulin (HCC) (Primary Dx); Primary hypertension; Mixed hyperlipidemia; Diabetic polyneuropathy associated with type 2 diabetes mellitus (HCC); Type 2 diabetes mellitus with diabetic neuropathy, with long-term current use of insulin (HCC) Social History Tobacco Use Types Packs/Day [...] doctor or pharmacy Often 01/20/2024 [facility] Utilities Answer Date Recorded In the past 12 months has [employer], or water [employer] threatened to shut off services in your [...] you attend chur ch or buddhist services? Patient unable to answer 11/07/2024 Do [...] in a detention (including now)? No 10/30/2023 PHQ-9 Answer Date [...] living in a detention (including now)? No 11/07/2024 Personal Safety Answer Date Recorded Have you ever been in or are you currently in a harmful physical or emotional relationship or is someone making you feel afraid or unsafe? Denies 11/01/2024 Comments No Sex and Gender Information Value Date Recorded Sex Assigned at Not on file Legal Sex Female 9:03 AM PORTFOLIO SPECIALIST Gender Identity Female 02/08/2020 6:39 PM CDT Sexual Orientation Not on file documented as of this encounter Last Filed Vital Signs Vital Sign Reading Time Taken Comments Blood Pressure 135/67 12/26/2024 9:34 AM CDT Pulse 75 12/26/2024 9:34 AM CDT Temperature 37.2 C (99 F) 12/26/2024 9:34 AM CDT Respiratory Rate - - Oxygen Saturation 98% 12/26/2024 9:34 AM CDT Inhaled Oxygen Concentration - - Weight 62.7 kg (138 lb 3.2 oz) 12/26/2024 9:34 A M CDT Height 157.5 cm (5' 2) 12/26/2024 9:34 AM CDT Body Mass Index 25.28 12/26/2024 9:34 AM CDT documented in this encounter Functional Status * Audit-C Score Answer Date of Assessment Author 0 12/26/2024 9:33 AM CDT Bruce Stearns * Question Answer Date of Assessment Author Q1: How often do you have a drink containing alcohol? Never 12/26/2024 9:33 AM CDT Bruce Stearns Q2: How many drinks containing alcohol do you have on a typical day when you are drinking? Patient does not drink 12/26/2024 9:33 AM CDT Bruce Stearns Q3: How often do you have six or more drinks on one occasion? Never 12/26/2024 9:33 AM CDT Bruce Stearns documented as of this encounter Ordered Prescriptions Prescription Sig Dispense Quantity Refills Last Filled Start Date End Date blood glucose diagnostic (Easy Touch Test Strip) stripIndications:Ty pe 2 diabetes mellitus with chronic kidney disease on chronic dialysis, with long-term current use of insulin (HCC) 1 each by other route daily 100 strip 3 12/26/2024 documented in this encounter Progress Notes * Smith Gibbs MD - 12/26/2024 8:40 AM CDT Endocrine Outpatient Visit Chief Complaint Patient presents with Diabetes Type 2 HPI: Last visit was on Aug 22 Patient is a 74 y.o. female with T2DM complicated by neuropathy, ESRD on HD (every other day at home), microalbuminuria, HLD, HTN, HFpEF, history of LE DVT, schizoaffective disorder who is here for T2DM follow-up. Since last visit: Patient has no acute complaints. Here with daughter who is the one who takes careof the night time insulin. Current regimen: She did not stop her insulin injections since last visit as recommended -Lantus 14 units qHS -Humalog 4 units + 1:50 >150 TIDAC CGM/SMBG: Madhav 3 sensor. They forgot to bring the reader and no data is available. Hypoglycemia events: none Associated symptoms: none Awareness: + <70 Change in eating habits: appetite is good Change in physical activity: sedentary Neuropathy: +, stable on gabapentin. No open wounds or ulcers. Retinopathy: Last dilated retinal exam is due Nephropathy: +, on ACEi/ARBs BP at goal Labs since last visit: -11/2024 A1c 8.2% (09/2023) > 6.5% (04/2024) > 7.7% (08/2024) > 7.1% (10/2024) Total cholesterol 98 TG 147 HDL 38 LDL 35 - on Atorvastatin 20 mg daily UaCR +4000 (2023) Cr 5.90 GFR 7 Current Outpatient Medications Medication Sig Dispense Refill aspirin 81 mg chewable tablet CHEW AND SWALLOW 1 TABLET(81 MG) BY MOUTH DAILY 90 tablet 1 atorvastatin (LIPITOR) 20 mg tablet Take 1 tablet (20 mg total) by mouth nightly benztropine (COGENTIN) 2 mg tablet Take 1 tablet (2 mg total) by mouth nightly blood-glucose sensor (FreeStyle Madhav 3 Plus Sensor) device Use to continually monitor glucose, change sensor every 15 days 6 each 3 carvediloL (COREG) 6.25 mg tablet Take 1 tablet (6.25 mg total) by mouth 2 (two) times a day with meals 180 tablet 0 cholecalciferol (VITAMIN D-3) 5,000 unit capsule Take 1 capsule (5,000 Units total) by mouth daily (Patient taking differently: Take 1 capsule (5,000 Units total) by mouth Taken one time a week, Sundays.) fluticasone propionate (FLONASE) 50 mcg/actuation nasal spray Administer 2 sprays into each nostrildaily as needed for rhinitis FreeStyle Madhav 3 [facility] Use Madhav 3 reader to scan Madhav 3 sensor gabapentin (NEURONTIN) 100 mg capsule TAKE 1 CAPSULE BY MOUTH 3 TIMES PER WEEK AFTER HEMODIALYSIS 40 capsule 1 hydrALAZINE (APRESOLINE) 50 mg tablet 1 tablet (50 mg total) (Patient taking differently: Take 1 tablet (50 mg total) by mouth 2 (two) times a day) insulin lispro (HumaLOG, ADMELOG) 100 unit/mL pen for injection Inject 4 units SQ before meals along with sliding scale. Max TDD 20 units 15 mL 3 LANTUS 100 unit/mL (3 mL) pen for injection Inject 11 Units under the skin nightly (Patient taking differently: Inject 14 Units under the skin nightly) 6 mL 0 lidocain-me.lhenlod-zccg-yswuc 4-20-0.025-5 % adhesive patch,medicated Apply 1 patch topically lidocaine (LIDODERM) 5 % Place 1 patch on the skin daily for 12 hours Remove & discard patch within 12 hours or as directed by MD. 30 patch 11 methoxy peg-epoetin beta (MIRCERA INJ) 75 mcg once every [address] (PROTONIX) 40 mg EC tablet Take 1 tablet (40 mg total) by mouth daily before breakfast 90 tablet 3 pen needle, diabetic (Easy Touch) 32 gauge x 5/32 needle USE DIRECTED FOUR TIMES DAILY 100 each3 risperiDONE (RisperDAL) 2 mg tablet Take 1 tablet (2 mg total) by mouth daily blood glucose diagnostic (Easy Touch Test Strip) strip 1 each by other route daily 100 strip 3 meclizine (ANTIVERT) 25 mg tablet Take 1 tablet (25 mg total) by mouth daily for 5 days 5 tablet 0 No current facility-administered medications for this visit. Review of Systems Review of systems per HPI and otherwise all other systems are negative. OBJECTIVES Vitals BP 135/67 (BP Location: Right arm, Patient Position: Sitting) Pulse 75 Temp 37.2 ??C (99 ??F) (Temporal) Ht 157.5 cm (5' 2) Wt 62.7 kg (138 lb 3.2 oz) SpO2 98% BMI 25.28 kg/m?? Physical exam: General Appearance: No apparent [...] during the visit Assessment/Plan: Patient is a 74 y.o. female with T2DM complicated by neuropathy, CKD stage 4, microalbuminuria, HLD, HTN, HFpEF, history of LE DVT, schizoaffective disorder who is here for T2DM follow-up. 1. Type 2 diabetes mellitus with diabetic neuropathy, with long-term current use of insulin ([facility]) ([facility]) Poor glycemic control as suggested by patient's most recent HbA1c, acceptable glycemic control based on GMI / TIR We discussed targets which include HbA1c < 8%, TIR > 50%, goal BG 100-180 If experiencing symptoms of hypoglycemia or BG below 70, follow the rule of - rule. Adjustments to current regimen: -Continue Lantus 14 units qHS -Continue Humalog 4 units +1:50 >150 TIDAC -CGM sensors: Madhav 3 sensor with reader -Continuous glucose monitor alarms should be set to alert to hypoglycemia 2. Mixed hyperlipidemia -LDL at goal, TG at goal -Due for repeat lipid panel in 10/2025 -Continue Atorvastatin 20 mg daily -Goal LDL <70, TG <150 3. Primary hypertension -BP at goal, asymptomatic -Monitor BP at home and follow-up with PCP -Goal BP <130/80 4. ESRD on hemodialysis -Currently on HD at home 5. Type 2 diabetes mellitus with chronic kidney disease on chronic dialysis, with long-term currentuse of insulin ([facility]) (Primary) -Management as above Orders Placed This Encounter Procedures POCT glucose Plan: Return in about 3 months (around 03/28/2025) for Next scheduled follow up. My total encounter time on 12/26/2024 was 30 minutes which was spent in the activities documented in the note. This includes time spent prior to the visit and after the visit in direct care of the patient. Smith Gibbs MD Instructor of Medicine Endocrinology, Metabolism and Lipid [facility] [place] documented in this encounter Plan of Treatment [...] in this encounter Results * POCT glucose (12/26/2024 9:39 AM CDT) Glucose Blood, POC 242 Normal Fasting 70 - 100, Random <200 mg/dL Blood 12/26/2024 9:39 AM CDT Smith Gibbs MD POINT OF CARE TEST ORDERABLE S Final Result documented in this encounter Visit Diagnoses Diagnosis Type 2 diabetes mellitus with chronic kidney disease on chronic dialysis, with long-term current use of insulin (HCC)- Primary Primary hypertension Unspecified essential hypertension Mixed hyperlipidemia Diabetic polyneuropathy associated with type 2 diabetes mellitus (HCC) Type 2 diabetes mellitus with diabetic neuropathy, with long-term current use of insulin ([facility]) documented in this encounter Discontinued Medications Medication Sig Discontinue Reason Start Date End Da te calcitRIOL (ROCALTROL) 0.25 mcg capsule Take 1 capsule (0.25 mcg total) by mouth Patient Reported 06/07/2024 12/26/2024 blood glucose diagnostic (Easy Touch Test Strip) stripIndications:Type 2 diabetes mellitus with diabetic neuropathy, with long-term current use of insulin ([facility]) 1 each by other route daily Reorder 07/08/2024 12/26/2024 documented as of this encounter Historical Medications * This list may reflect changes made after this encounter. lidocain-me.juanita tal-ydep-wdveu 4-20-0.025-5 % adhesive patch,medicated Apply 1 patch topically 11/07/2024 added in this encounter Care Teams Manager Van Relationship Specialty Start Date End Date Cherelle Corcoran MD PCP - General Family Medicine 08/30/19 Mark Queen MD Consulting Physician Infectious Diseases 01/10/20 Rudolph Welch MD [address] [place] [address] Consulting Physician Infectious Diseases 12/05/22 Markie Ryan MD [address] [place] [address] Consulting Physician Nephrology 12/05/22 [place] [id number] [address] Consulting Physician Nephrology 10/22/23 Jaya Grier MD [address] [place] [address] Consulting Physician Gastroenterology 02/01/24 Edgardo Kauffman MD [address] [facility] [address] [place] [address] Surgeon Vascular Surgery 07/15/24 documented as of this encounter
--- OUTSIDE RECORDS SUMMARY | 2024-12-26 12:00 | XMS_ITS | Clinical Summary ---
Author Organization [facility] Address [address], [address] [address] Phone Care Team Providers Care Medical Office Specialist Name Role Phone Cherelle Corcoran MD [...] 9 Active Insulin Pen Needle (PEN NEEDLES 31GX5/16) 31G X 8 MM Misc As Instructed. [...] 10:19 AM CDT Height 157.5 cm (5' 2) 03/11/2019 10:19 AM CDT Body Mass Index 29.26 03/11/2019 10:19 AM CDT Plan of Treatment Health Maintenance Due Date Last Done Comments DEXA Bone Density 1950 Diabetes: Eye Exam 1950 Diabetes: Foot Exam 1950 Hepatitis C Virus (HCV) Screening 1950 TdaP Immunization 1950 Cologuard 10/29/1995 Zoster Immunization (1 of 2) 2000 Respiratory Syncytial Virus (RSV) Immunization (Adult) (1 - Risk 60-74 years 1-dose series) 2010 Mammogram 11/07/2016 11/08/2015 Immunochemical Fecal Occult Blood 03/30/2018 03/30/2017 Diabetes: Hemoglobin A1c 07/23/2019 019, 01/20/2019, 10/08/2017, Additional history exists Diabetes: Nephropathy Screening 03/11/2020 03/11/2019, 01/20/2019, 01/20/2019, Additional history exists SARS-COV-2 Immunization ( season) 2024 06/11/2021, 10/13/2020, 09/22/2020 Influenza Immunization (#1) 02/20/202507/23, 04/01/2022, 03/07/2021, Additional history exists Colonoscopy 04/01/2027 04/01/2017 Colorectal Cancer Screening 04/01/2027 Pneumococcal Immunization (50+ years) Completed 01/20/2019, 03/31/2017 Pneumococcal Immunization Combined Discontinued 01/20/2019, 03/31/2017 Hepatitis B Immunization Aged Out No longer eligible based on patient's age to complete this topic Human Papillomavirus (HPV) Immunization Aged Out No longer eligible based [...] - 144 mmol/L 03/11/2019 11:10 AM CDT [facility] POTASSIUM 4.8 3.5 - 5.1 mmol/L 03/11/2019 11:10 AM CDT [facility] CHLORIDE 96(L) 100 - 110 mmol/L 03/11/2019 11:10 AM CDT [facility] CO2, VENOUS 28 22 - 32 mmol/L 03/11/2019 11:10 AM CDT [facility] ANION GAP 17.8 8.0 - 20.0 mmol/L 03/11/2019 11:10 AM CDT [facility] GLUCOSE 216(H) 70 - 99 mg/dL 03/11/2019 11:10 AM CDT [facility] BUN 22 8 - 23 mg/dL 03/11/2019 11:10 AM [facility] CREATININE, BLOOD 0.66 0.60 - 1.10 mg/dL 03/11/2019 11:10 AM [facility] BUN/CREATININE RATIO 33(H) 12 - 20 ratio 03/11/2019 11:10 AM [facility] TOTAL PROTEIN 8.4(H) 6.0 - 8.3 g/dL 03/11/2019 11:10 AM [facility] ALBUMIN 4.3 3.5 - 5.2 g/dL 03/11/2019 11:10 AM [facility] Comment: The colormetric methods used for the determination of Albumin may lead to falsely elevated test results in patients suffering from renal failure or insufficiency due to interference with other proteins. A/G RATIO 1.0 1.0 - 2.0 03/11/2019 11:10 AM [facility] CALCIUM 10.4(H) 8.9 - 10.3 mg/dL 03/11/2019 11:10 AM [facility] T BILI 0.3 <=1.2 mg/dL 03/11/2019 11:10 AM [facility] SGOT (AST) 19 <=32 U/L 03/11/2019 11:10 AM [facility] Comment: Hemolysis present: results may be falsely elevated. SGPT (ALT) 14 <=33 U/L 03/11/2019 11:10 AM [facility] ALKALINE PHOSPHATASE 123(H) 35 - 105 U/L 03/11/2019 11:10 AM [facility] GFR, EST. NONAFRICAN >60 >=60 03/11/2019 11:10 AM [facility] GFR, EST. >60 >=60 019 11:10 AM [facility] Comment: Creatinine Clearance is the preferred criteria for selecting drug dose adjustments in renally impaired patients. The GFR is provided as additional pertinent clinical information. GFR is reported in mL/min/1.73 sq m. Blood specimen (specimen) Venous Catheter (IV) / Unknown 03/11/2019 10:23 AM CDT 03/11/2019 10:46 AM CDT Ronald Haro MD CHEMISTRY ORDERABLES Final Result Performing Organization Address [facility]/ZIP Co de Phone Number [facility] [address] [place] [address] * (ABNORMAL) POCT GLYCOSYLATED HEMOGLOBIN (01/20/2019 9:44 AM CDT) HGB-A1C 15(A) 4 - 6 Comment:above 15 01/20/2019 9:44 AM CDT Choco Morris PAC POINT OF CARE TESTING (M ANUAL) Final Result * Stool, Occult Blood, Diagnostic (03/30/2017 2:09 PM CDT) OCCULT BLOOD DIAG Negative Negative 03/30/2017 2:29 PM CDT [facility] Stool specimen (specimen) STOOL SPECIMEN / Unknown Non-Phlebotomy Collection / Unknown 03/30/2017 2:09 PM CDT 03/30/2017 2:23 PM CDT Anali Ortiz PAC BODY FLUIDS & STOOLS ORDERAB LES Final Result Performing Organization Address City/[facility] Co de Phone Number [facility] [address] [place] [address] * CHERYL SCREENING BILATERAL DIGITAL W CAD (11/08/2015) Anatomical Region Laterality Modality breast Bilateral Other Historical Provider IMG MAMMO ORDERABLES Blessing l [...] measures to stabilize the patient. Care Teams Medical Office Specialist Relationship Specialty Start Date End Date Cherelle Corcoran MD [address] [place], [place] [id number] PCP - General Family Medicine 02/12/24 Sim López MD [address] [place] [phone] Consulting Physician Oncology 02/12/24
--- OUTSIDE RECORDS SUMMARY | 2024-12-26 12:00 | XMS_ITS | Encounter Summary ---
Author Organization [facility] Address [address] [place] [address] Care Team Providers Care Aerodynamics Professor Name Role Phone Cherelle Corcoran MD Primary Care Pro vider Mark Queen MD Unavailable [phone] Rudolph Welch MD Unavailable [phone] Markie Ryan MD Unavailable [phone] Jimbo Strauss MD Unavailable [phone] Jaya Grier MD Unavailable Edgardo Kauffman MD Unavailable [phone] Reason for Visit * Reason Onset Date Comments Arm Pain 12/26/2024 Encounter Details Date Type Department Care Team (Late st Contact Info) Description 12/26/2024 Nurse Triage [facility] Primary Care at [place] [id number] [facility] [address] [place] [address] Cherelle Corcoran MD [address] [facility] [address] [place] [address] Social History Tobacco Use Types [...] doctor or pharmacy Often 01/20/2024 [facility] Utilities Answer Date [...] you attend chur ch or adventism services? Patient unable to answer 11/07/2024 Do [...] any time in the past 12 m [facility], were you homeless or living in a long-term (including now)? No 11/07/2024 Personal Safety Answer Date Recorded Have you ever been in or are you currently in a harmful physical or emotional relationship or is someone making you feel afraid or unsafe? Denies 11/01/2024 Comments No Sex and Gender Information Value Date Recorded Sex Assigned at Not on file Legal Sex Female 9:03 AM LAST IRONER Gender Identity Female 02/08/2020 6:39 PM CDT Sexual Orientation Not on file documented as of this encounter Functional Status * Audit-C Score [...] Bruce Stearns documented as of this encounter Miscellaneous Notes * Telephone Encounter - Anshu Platt MA - 12/26/2024 11:24 AM CDT Noted. * Telephone Encounter - Mary Ramos RN - 12/26/2024 11:20 AM CDT Reason for Conversation Arm Pain (/) Background Barbara Chakraborty's daughter is calling, with patient, to report left arm pain. The pain has been ongoing in the arm since patient was in rehab in November.Daughter reports patient was receiving PT at that time and felt the pain was increased by the therapy. Patient has hx of rotator cuff tear that had healed but daughter is concerned this may have been aggravated by the therapy. Patient reports at timeof call she has intermittent chest pain and the episodes last great then 5 min. She reports the pain is the left arm and into her left side of chest. The chest pain began more recently but patient does not recall exactly when. Daughter also reports patient has pain when at rest. Denies SOB. Disposition Go to ED Now. Daughter agrees to transport patient to ED. Nursing care advice also provided. Encouraged to call back if there are further questions or concerns. Encouraged to call back if symptoms persist or worsen. FYI ED Reason for Disposition Chest pain lasting longer than 5 minutes No Initial Assessment on file. No Additional Information on file. Protocols Used Arm Fscb-Horns-GC * Telephone Encounter - Mary Ramos RN - 12/26/2024 11:07 AM CDT Regarding: Left arm severe pain ----- Message from Mary Jeff sent at 12/26/2024 10:53 AM CDT ----- Symptom Based Call Chief Complaint(s): Left arm severe pain Duration: 11/26/2024 What type of symptom(s) is the patient experiencing? Red Flag. Is the patient concerned they are experiencing a medical emergency requiring an ambulance? No Additional Comments: Pt daughter Areli ( HIPAA verified with pt) called stating pt has been experiencing left arm pain since having PT from her last hospital stay. She thinks she may have re injured it has previous injury of left arm rotator tear. They wanted a refill on pt tramadol she did have for it previously. Does message need to be routed? Yes-Action Needed documented in this encounter Plan of Treatment Scheduled Procedures Name Priority Associated Diagnoses Date/Ti me COLONOSCOPY Iron deficiency anemia due to chronic blood loss documented as of this encounter Visit Diagnoses Not on filedocumented in this encounter Care Teams Aerodynamics Professor Relationship Specialty Start Date End Date Cherelle Corcoran MD PCP - General Family Medicine 08/30/19 Mark Queen MD Consulting Physician Infectious Diseases 01/10/20 Rudolph Welch MD [address] [facility] [address] [place] [address] Consulting Physician Infectious Diseases 12/05/22 Markie Ryan MD [address] [facility] [address] [place] [address] Consulting Physician Nephrology 12/05/22 [place] [id number] [address] Consulting Physician Nephrology 10/22/23 Jaya Grier MD [address] [facility] [address] [place] [address] Consulting Physician Gastroenterology 02/01/24 Edgardo Kauffman MD [address] [facility] [address] [place] [address] Surgeon Vascular Surgery 07/15/24 documented as of this encounter
[2024-12-26 12:20] LABS: Hematocrit 32.1 % (37.0-47.0); Hemoglobin 10.1 g/dL (12.0-15.0); Immature Granulocyte Percent A 0.2 % (0-0.5); Lymphocytes Absolute Auto 1.85 K/mm3 (0.9-3.2); Mean Corpuscular HGB Conc 31.5 g/dl (32-36); Mean Corpuscular Hemoglobin 31.5 pg (26-34); Mean Corpuscular Volume 100.0 fl (80-100); Nucleated Red Blood Cells Absolute Auto 0.000 K/mm3 (0.0-0.012); Nucleated Red Blood Cells Perc 0.0 % (0.0-0.2); Platelet Count Result 231 k/mm3 (150-375); Red Blood Count 3.21 M/mm3 (4.2-5.4); White Blood Count 8.7 K/mm3 (4.5-10.0)
[2024-12-26 12:32] LABS: INR 1.0; Prothrombin Time 13.1 Seconds (11.1-14.7)
[2024-12-26 12:33] LABS: Partial Thromboplastin Time 27.8 Seconds (22.3-36.8)
[2024-12-26 12:50] VITALS: BP 162/70; PULSE 69; RESP 16; TEMP 36.4; O2SAT 100
[2024-12-26 12:54] VITALS: O2SAT 100
[2024-12-26 13:00] VITALS: BP 162/70; PULSE 70; RESP 16; O2SAT 100
--- OUTSIDE RECORDS SUMMARY | 2024-12-26 13:02 | XMS_ITS | Encounter Summary ---
Author Organization [facility] Address [address] [place] [address] Phone Care Team Providers Care Clinical Services Director Name Role Phone Cherelle Corcoran MD Primary Care Pro vider QueenMark Perez MD Unavailable [phone] Brandie Callejas MA Unavailable Unav ailable Xenia Padilla LPN Unavailable [phone] Samples, Melania Joel RN Unavailable [phone] nAam Costa LCSW Unavailable Unavailabl e Samples, Melania Joel RN Unavailable Rudolph Welch MD Unavailable Markie Ryan MD Unavailable Nadege Ramírez RN Unavailable Dulce Vega RN Unavailable Jimbo Strauss MD Unavailable [phone] Jaya Grier MD Unavailable Edgardo Kauffman MD Unavailable [phone] Macrina Mike RN Unavailable Encounter Details Date Type Department Care Team (Late st Contact Info) Description 12/30/2021 Telephone [facility] Endocrinology Metabolism and Lipid [address] [facility] 5th [place] [address] [place] [id number] Rachael Smith CMA Social History Tobacco Use [...] you attend chur ch or adventist services? 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 Gender Identity Female 02/08/2020 6:39 PM [...] COVID: Suspected 05/08/2022 05/08/2022 05/08/2022 4:26 PM CARPENTER LABOR SUPERVISOR COVID: Suspected 06/19/2022 06/19/2022 06/19/2022 12:37 PM CARPENTER LABOR SUPERVISOR COVID: Suspected 08/01/2022 08/01/2022 08/01/2022 2:28 PM CARPENTER LABOR SUPERVISOR COVID: Suspected 10/02/2022 10/02/2022 10/02/2022 8:14 PM CDT MRSA Comment:Toe 11/08/22, 12/12/22 11/08/2022 12/12/2022 06/10/2023 3:05 AM CARPENTER LABOR SUPERVISOR COVID: Suspected 12/08/2022 12/08/2022 12/08/2022 8:17 PM CDT COVID: Suspected 07/27/2023 07/27/2023 07/28/2023 12:57 AM CARPENTER LABOR SUPERVISOR COVID: Suspected 10/29/2023 10/30/2023 10/30/2023 10:59 AM CDT 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 12/19/2023 12/19/2023 3:58 PM CDT 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 12/29/2023 06/26/2024 3:05 AM CARPENTER LABOR SUPERVISOR COVID: Suspected 04/19/2024 04/19/2024 04/20/2024 12:44 AM CDT COVID: Suspected 07/12/2024 07/12/2024 07/12/2024 12:39 PM CARPENTER LABOR SUPERVISOR COVID: Suspected 07/31/2024 07/31/2024 07/31/2024 2:06 PM CARPENTER LABOR SUPERVISOR documented as of this encounter Care Teams Clinical Services Director Relationship Specialty Start Date End Date Cherelle Corcoran MD PCP - General Family Medicine 08/30/19 Mark Queen MD Consulting Physician Infectious Diseases 01/10/20 Brandie Callejas MA Patient Staff Physical Therapy Assistant 06/20/22 06/22/22 Xenia Padilla LPN [address] [place] [address] [address] [place] [address] Research Asst 06/24/22 06/24/22 Samples, Melania Joel RN [address] [place] [address] [address] [place] [address] Research Asst 07/22/22 08/21/22 Anam Costa LCSW [address] [place] [address] [address] [place] [address] Boathouse Keeper 08/08/22 02/18/23 Samples, Melania Joel RN [address] [place] [address] [address] [place] [address] Research Asst 08/22/22 12/07/22 Rudolph Welch MD [address] [facility] [address] [place] [address] Consulting Physician Infectious Diseases 12/05/22 Markie Ryan MD [address] [facility] [address] [place] [address] Consulting Physician Nephrology 12/05/22 Nadege Ramírez RN [address] [place] [address] [address] [place] [address] Research Asst 01/20/23 02/23/23 Dulce Vega RN [address] [place] [address] [address] [place] [address] Research Asst 10/07/23 05/03/24 [place] [address] [facility] [address] [place] [address] Consulting Physician Nephrology 10/22/23 Jaya Grier MD [address] [facility] [address] [place] [address] Consulting Physician Gastroenterology 02/01/24 Edgardo Kauffman MD [address] [facility] [address] [facility] [address] [place] [address] Surgeon Vascular Surgery 07/15/24 Macrina Mike, ALIREZA [address] [place] [address] [address] [place] [address] Research Asst 11/07/24 11/30/24 documented as of this encounter
--- OUTSIDE RECORDS SUMMARY | 2024-12-26 13:02 | XMS_ITS | Clinical Summary ---
Author Organization [facility] Address [facility] [place] [address] Care Team Providers Care Social Science Manager Name Role Phone Cherelle Corcoran MD Primary Care Provider [phone] Social History Tobacco Use Types Packs/Day Years [...] 11/20, 08/02/2022, Additional history exists PHQ-2 (Physician [facility] [place]) 06/22/2024 Mammogram Screening 01/21/2026 01/22/2024, 09/25/2022, 01/08/2021, Additional history exists Pneumococcal Vaccine: 50+ Years Completed 01/20/2019, 03/31/2017 Dexa Scan (General) [...] this topic Insurance MEDICARE MEDICAID Care Teams Social Science Manager Relationship Specialty Start Date End Date Cherelle Corcoran MD [address] [place] [id number] PCP - General FAMILY PRACTICE 09/27/19
--- OUTSIDE RECORDS SUMMARY | 2024-12-26 13:02 | XMS_ITS | Continuity of Care Document ---
Author Organization [facility] Address [address] [facility] [address] [place] [address] Phone Care Team Providers Care Traffic Enumerator Name Role Phone Luis OD, Alvarado Unavailable Unavailable Advance Directives Directive Yes / No Effective Date File Name No Information Encounters Encounter Description Practice Location Reason(s) For Visit Diagnoses Date Provider Providers Copied on Encounter [facility], [address] [place], [place], [id number], [place] tel:[phone] [facility] No Information May-2 0-200 5 Luis OD Alvarado. [address] [facility] , [address], [place], [address], [place]. tel:[phone] Family History Family Member Type Diagnosis Age At Onset No Information Payers Payer name Insurance type Covered republican ID Authoriza tion(s) Medicaid [facility] [id number] Social History Type Description Quantity Date Captured [...]
--- OUTSIDE RECORDS SUMMARY | 2024-12-26 13:02 | XMS_ITS | Encounter Summary ---
Author Organization [facility] Address [address] [place] [address] Care Team Providers Care Boxer Operator Name Role Phone Cherelle Corcoran MD Primary Care Pro vider Mark Queen MD Unavailable [phone] Rudolph Welch MD Unavailable [phone] Markie Ryan MD Unavailable [phone] Jimbo Strauss MD Unavailable [phone] Jaya Grier MD Unavailable Edgardo Kauffman MD Unavailable Macrina Mike RN Unavailable Encounter Details Date Type Department Care Team (Late st Contact Info) Description 10/25/2024 Results Follow-Up [facility] Primary Care at [address] [place] [address] Cherelle Corcoran MD [facility] [address] XR Chest PA Lateral 2 [...] In the past 12 months has e [employer], gas, oil, or water [employer] threatened to shut off services in [...] attend chur ch or latter day services? Patient unable to answer 11/07/2024 Do [...] in a halfway (including now)? No 10/30/2023 PHQ-9 Answer Date [...] living in a halfway (including now)? No 11/07/2024 Personal Safety Answer Date Recorded Have you ever been in or are you currently in a harmful physical or emotional relationship or is someone making you feel afraid or unsafe? 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 Gender Identity Female 02/08/2020 6:39 PM CDT Sexual Orientation Not on file documented as of this encounter Plan of Treatment Scheduled Procedures Name Priority Associated Diagnoses Date/Ti me COLONOSCOPY Iron deficiency anemia due to chronic blood loss documented as of this encounter Visit Diagnoses Not on filedocumented in this encounter Care Teams Boxer Operator Relationship Specialty Start Date End Date Cherelle Corcoran MD PCP - General Family Medicine 08/30/19 Mark Queen MD Consulting Physician Infectious Diseases 01/10/20 Rudolph Welch MD [address] [facility] [address] [place] [address] Consulting Physician Infectious Diseases 12/05/22 Markie Ryan MD [address] [facility] [address] [place] [address] Consulting Physician Nephrology 12/05/22 [place] [address] [facility] [address] [place] [address] Consulting Physician Nephrology 10/22/23 Jaya Grier MD [address] [facility] [address] [place] [address] Consulting Physician Gastroenterology 02/01/24 Edgardo Kauffman MD [address] [facility] [address] [place] [address] Surgeon Vascular Surgery 07/15/24 Macrina Mike RN [address] [place] [address] [address] [place] [address] Parts Salesperson 11/07/24 11/30/24 documented as of this encounter
--- OUTSIDE RECORDS SUMMARY | 2024-12-26 13:03 | XMS_ITS ---
Author Organization [facility] Address [address] [place] [address] Care Team Providers Care Detail Manager Name Role Phone Cherelle Corcoran MD Primary Care Pro vider Mark Queen MD Unavailable [phone] Rudolph Welch MD Unavailable [phone] Markie Ryan MD Unavailable Jimbo Strauss MD Unavailable [phone] Jaya Grier MD Unavailable Edgardo Kauffman [...] EYE EXAM Routine 07/27/2024 12: 37 PM ANIMAL IMPERSONATOR COLONOSCOPY 03/01/2024 8:49 AM CDT DEXA AXIAL [...] known active allergies Medications FreeStyle Madhav 3 [place] [place] Madhav 3 reader to scan Madhav 3 sensor 2023 Active pen needle, diabetic (Easy Touch) 32 gauge x 5/32 needleIndication s:Type 2 diabetes mellitus with diabetic neuropathy, with long-term current use of insulin ([facility]) USE DIRECTED FOUR TIMES DAILY [...] with long-term current use of insulin ([facility]) Use to continually monitor glucose, [...] with long-term current use of insulin ([facility]) Inject 4 units SQ before [...] DAILY 90 tablet 1 2024 Active lidocain-me.sali eqt-qsoc-slsvu 4-20-0.025-5 % adhesive patch,medicated Apply 1 patch [...] restarting Assessment & Plan (07/14/2024 2:30 PM ANIMAL IMPERSONATOR): Continue Lipitor Assessment & Plan (07/14/2024 8:56 AM ANIMAL IMPERSONATOR): Ok to restart atorvastatin, but also given [...] nephrology Assessment & Plan (07/14/2024 2:39 PM ANIMAL IMPERSONATOR): Patient is needing a Perma catheter exchange [...] proceed. Assessment & Plan (07/14/2024 8:51 AM ANIMAL IMPERSONATOR): Following with nephrology Assessment & Plan (01/06/2024 [...] 10/30/2023 Assessment & Plan (05/06/2024 7:49 AM ANIMAL IMPERSONATOR): Reviewed hospital discharge summary Now resolved Upcoming [...] stable Assessment & Plan (07/24/2023 1:51 PM ANIMAL IMPERSONATOR): Chronic/stable Parkinsonism 08/14/2022 Assessment & Plan (10/24/2024 10:57 AM CDT): Following with neurology Assessment & Plan (07/14/2024 8:54 AM ANIMAL IMPERSONATOR): Following with neurology, recommend reaching out to them in regards to restarting benztropine. Consider waiting until after restarts other medications given daughter reports tremors controlled off benztropine currently Assessment & Plan (11/10/2023 4:43 PM CDT): Following with neurology On cogentin Assessment & Plan (07/24/2023 1:50 PM ANIMAL IMPERSONATOR): Following with neurology On cogentin twice a day Assessment & Plan (01/23/2023 9:20 AM CDT): Following with neurology On cogentin twice a day Assessment & Plan (10/10/2022 10:41 AM CDT): Following with neurology On cogentin Assessment & Plan (08/14/2022 10:46 AM ANIMAL IMPERSONATOR): Following with neurology, reviewed note On cogentin [...] care Assessment & Plan (08/14/2022 10:47 AM ANIMAL IMPERSONATOR): Following with podiatry Assessment & Plan (04/02/2022 [...] weight 155lbs -Home with family at [place], dial 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 -outpatient [...] weight 155lbs -[place] family at [place], dial 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 Assessment [...] net neg 1/2-1L/day. -consider renal consult regarding penitentiary dialysis planning. Assessment & Plan (09/06/2021 10:28 [...] neurology Assessment & Plan (07/14/2024 8:53 AM ANIMAL IMPERSONATOR): Following with neurology Assessment & Plan (01/05/2024 10:40 PM CDT): Follows with neurology. -continue risperidone 2mg QHS -continue benztropine 2mg daily Assessment & Plan (11/10/2023 4:37 PM CDT): Following with neurology Assessment & Plan (07/24/2023 1:50 PM ANIMAL IMPERSONATOR): Following with neurology Assessment & Plan (01/23/2023 9:18 AM CDT): Following with neurology Assessment & Plan (10/10/2022 10:37 AM CDT): Following with neurology, ordered MRI, # given to son to schedule Assessment & Plan (06/09/2022 3:37 PM ANIMAL IMPERSONATOR): Needs to reschedule with neurology Looking into shelter, but declined for [facility] for schizoaffective disorder Assessment & Plan (01/14/2022 [...] needed Assessment & Plan (06/09/2022 3:37 PM ANIMAL IMPERSONATOR): Reviewed PM & PHQ Screening PHQ-2 Total [...] psychiatry Assessment & Plan (08/18/2024 8:44 AM ANIMAL IMPERSONATOR): Chronic, stable. Does not report any stephanie [...] discussed. Assessment & Plan (07/14/2024 8:54 AM ANIMAL IMPERSONATOR): Following with psychiatry, recommend reaching out to [...] psychiatry Assessment & Plan (07/24/2023 1:50 PM ANIMAL IMPERSONATOR): Following with psychiatry Assessment & Plan (01/23/2023 [...] discussed. Assessment & Plan (08/09/2021 5:42 AM ANIMAL IMPERSONATOR): Following with psychiatry Assessment & Plan (08/07/2021 3:28 PM ANIMAL IMPERSONATOR): Chronic condition, switch to Haldol and has had multiple different problems including acute kidney failure in infectious process. [facility] Confounded by delirium. Currently experiencing delirium will discontinue Haldol and return to Risperdal as previously taking. Risperdal was discontinued due to poorly-controlled diabetes. Monitor in 1 to 2 weeks. Assessment & Plan (07/03/2021 7:24 AM ANIMAL IMPERSONATOR): Following with psychiatry D/c risperidone, started on haldol Assessment & Plan (07/01/2021 9:16 PM ANIMAL IMPERSONATOR): Chronic, stable. 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 The patient previously lived on her own and was observed to be hoarding. See additional problems-dementia. Evaluate again in 1 month after starting Risperdal. Iron deficiency anemia 04/02/2020 Assessment & Plan (05/06/2024 7:51 AM ANIMAL IMPERSONATOR): Recommend discussing IV iron with nephrology Assessment & Plan (10/02/2020 4:35 PM CDT): Continue iron Assessment & Plan (05/28/2020 1:51 PM ANIMAL IMPERSONATOR): Iron levels recently normalized, but still anemic, repeat today Assessment & Plan (04/16/2020 11:45 AM CDT): Recent iron within normal limits, H/H improving, continue supplementation until normalized Gastroesophageal reflux disease without esophagi tis 04/02/2020 Assessment & Plan (10/24/2024 10:57 AM CDT): continue protonix Following with GI Assessment & Plan (07/14/2024 8:56 AM ANIMAL IMPERSONATOR): Restart protonix Upcoming EGD Assessment & Plan (01/05/2024 10:40 PM CDT): -continue famotidine Assessment & Plan (10/02/2020 4:35 PM CDT): Continue omeprazole Assessment & Plan (07/24/2020 2:06 PM ANIMAL IMPERSONATOR): Recurrent symptoms off omeprazole, restart Assessment & Plan (05/28/2020 1:51 PM ANIMAL IMPERSONATOR): Iron levels recently normalized, but still anemic, repeat today Assessment & Plan (04/02/2020 1:26 PM CDT): Start PPI History of amputation of toe 01/19/2020 Assessment & Plan (01/08/2021 3:50 PM CDT): Stable Assessment & Plan (10/02/2020 4:35 PM CDT): Stable Assessment & Plan (04/30/2020 1:00 PM ANIMAL IMPERSONATOR): Stable Assessment & Plan (02/14/2020 5:15 PM [...] controlled Assessment & Plan (07/14/2024 2:32 PM ANIMAL IMPERSONATOR): Continue carvedilol, hydralazine Assessment & Plan (07/14/2024 8:51 AM ANIMAL IMPERSONATOR): BP controlled today off medication Daughter reports nephrology said could restart medication, is planning to restart coreg first and monitor blood pressure prior to restarting nifedipine/hydralazine Assessment & Plan (05/06/2024 7:48 AM ANIMAL IMPERSONATOR): BP controlled Continue nifedipine, hold prior to [...] with HD. Most recent admission at [facility] with initiation of hydralazine and [...] amlodipine Assessment & Plan (08/03/2023 4:02 PM ANIMAL IMPERSONATOR): BP uncontrolled Start 5mg amlodipine Assessment & Plan (07/24/2023 1:49 PM ANIMAL IMPERSONATOR): Blood pressure borderline today off medications Assessment & Plan (01/23/2023 9:18 AM CDT): Blood pressure borderline low today, asymptomatic Checking labs Advised to decrease amlodipine to 5mg and monitor blood pressure Assessment & Plan (10/10/2022 10:50 AM CDT): Continue coreg 6.25mg twice a day & 40mg valsartan Assessment & Plan (08/14/2022 10:43 AM ANIMAL IMPERSONATOR): Blood pressure at goal, continue coreg 6.25mg twice a day Assessment & Plan (06/09/2022 3:32 PM ANIMAL IMPERSONATOR): Blood pressure at goal, continue coreg 3.125mg [...] day Assessment & Plan (08/05/2021 10:35 AM ANIMAL IMPERSONATOR): Blood pressure at goal Increase amlodipine to 10mg & d/c hydralazine per cardiology Assessment & Plan (05/28/2021 4:59 PM ANIMAL IMPERSONATOR): Blood pressure above goal, but previously within [...] lisinopril Assessment & Plan (08/28/2020 12:12 PM ANIMAL IMPERSONATOR): Blood pressure at goal Continue lisinopril Assessment & Plan (07/24/2020 2:05 PM ANIMAL IMPERSONATOR): Blood pressure at goal Continue lisinopril Assessment & Plan (05/28/2020 1:50 PM ANIMAL IMPERSONATOR): BP borderline Continue 10mg lisinopril Continue to monitor Assessment & Plan (04/30/2020 12:32 PM ANIMAL IMPERSONATOR): BP borderline Continue 10mg lisinopril Continue to [...] endocrine Assessment & Plan (07/14/2024 2:31 PM ANIMAL IMPERSONATOR): Controlled. Continue as per Endocrine and PCP Assessment & Plan (07/14/2024 8:50 AM ANIMAL IMPERSONATOR): Following with endocrine, reviewed note Holding insulin [...] +SSI Assessment & Plan (07/24/2023 1:49 PM ANIMAL IMPERSONATOR): Lab Results Component Value Date HGBA1C 8.1 [...] trulicity Assessment & Plan (08/14/2022 10:42 AM ANIMAL IMPERSONATOR): Following with endocrine Continue lantus, 12 units humalog TIDAC & 1.5mg trulicity Assessment & Plan (06/09/2022 3:32 PM ANIMAL IMPERSONATOR): Following with endocrine Home blood sugar at [...] for strict med oversight by family at OR reviewed with daughter this admit. Assessment & [...] for strict med oversight by family at OR reviewed with daughter this admit. Assessment & [...] and nephropathy. Med oversight by family at OR. Assessment & Plan (09/14/2021 12:22 PM CDT): [...] as she had discussed this with outpatient systems manager - repeat A1c - resume home statin, not currently on feliciano due to kidney function Assessment & Plan (08/05/2021 10:35 AM ANIMAL IMPERSONATOR): Continue 15 units lantus twice a day Assessment & Plan (07/03/2021 7:24 AM ANIMAL IMPERSONATOR): Fasting blood sugar significantly improved Risperidone changed Continue current meds Continue to monitor Assessment & Plan (06/18/2021 11:22 AM ANIMAL IMPERSONATOR): Increase lantus to 60 units nightly, if blood sugar still above goal after 1 week split into 33 units twice a day Follow up with blood sugar via portal in 2 weeks Continue jardiance 25mg Continue trulicity 4.5mg weekly Assessment & Plan (05/28/2021 4:58 PM ANIMAL IMPERSONATOR): Increase lantus to 55 units nightly Continue [...] weekly Assessment & Plan (08/28/2020 1:00 PM ANIMAL IMPERSONATOR): DM Care Plan: Meds: Lantus - continue [...] recheck Assessment & Plan (07/24/2020 2:05 PM ANIMAL IMPERSONATOR): Formulary change 2/2 insurance, switched to trulicity. Will increase to 1.5mg Assessment & Plan (05/28/2020 1:50 PM ANIMAL IMPERSONATOR): Check a1c Barbara isn't checking blood sugar regularly, but when she is she has several >200 so I lean towards increasing if a1c>7 Assessment & Plan (04/30/2020 12:31 PM ANIMAL IMPERSONATOR): Blood sugar improved on 40 units basaglar [...] doctor or pharmacy Often 01/20/2024 [facility] Utilities Answer Date Recorded In the past 12 months has [employer], [employer], or [employer] threatened to shut off services in your [...] answer 11/07/2024 How often do you attend [facility] or hoahaoism services? Patient unable to answer 11/07/2024 Do [...] living in a [facility] (including now)? No 11/07/2024 Personal Safety Answer Date Recorded Have you ever been in or are you currently in a harmful physical or emotional relationship or is someone making you feel afraid or unsafe? Denies 11/01/2024 Comments No Sex and Gender Information Value Date Recorded Sex Assigned at Not on file Legal Sex Female 9:03 AM ANIMAL IMPERSONATOR Gender Identity Female 02/08/2020 6:39 PM CDT [...] * POCT glucose (12/26/2024 9:39 AM CDT) [facility] Glucose Blood, POC 242 Normal Fasting 70 - 100, Random <200 mg/dL Blood 12/26/2024 9:39 AM CDT Smith Gibbs MD POINT OF CARE TEST ORDERABLE S Final Result * (ABNORMAL) eGFR (11/25/2024 12:58 PM CDT) [facility] eGFR 7(L) >=60 mL/min/1. 73 m2 NILSA [...] was last reviewed 2021. Testing performed by: [address] [address] Blood 11/25/2024 12:5 8 PM CDT 11/25/2024 2:12 PM CDT us Notinfile Unknown LAB BLOOD ORDERABLES Final Res ult NILSA [address] [facility] Department [place] [address] * (ABNORMAL) Differential, auto (11/25/2024 12:58 PM CDT) Neutrophil abs 6.51(H) 1.50 - 6.50 K/cumm NILSA Comment:Testing performed by : [address] [address] Imm gran abs 0.05 0.00 - 0.10 K/cumm NILSA Comment:Testing performed by : [address] [address] Lymphocyte abs 2.37 0.80 - 3.30 K/cumm NILSA Comment:Testing performed by : [address] [address] Monocyte abs 0.70 0.20 - 0.80 K/cumm NILSA Comment:Testing performed by : [address] [address] Eosinophil abs 0.16 0.00 - 0.50 K/cumm NILSA Comment:Testing performed by : [address] [address] Basophil abs 0.04 0.00 - 0.10 K/cumm NILSA Comment:Testing performed by : [address] [address] Neutrophil pct 66.3 % [facility] Comment: Interpretive Data Percent cell count reference ranges are not reported, since discordance with absolute values may lead to misinterpretation of CBC data. Current Interpretive Data was last revised on 2017. Testing performed by: [address] [address] Imm gran pct 0.5 % [facility] Comment: Interpretive Data Percent cell count reference ranges are not reported, since discordance with absolute values may lead to misinterpretation of CBC data. Current Interpretive Data was last revised on 2017. Testing performed by: [address] [address] Lymphocyte pct 24.1 % [facility] Comment: Interpretive Data Percent cell count reference ranges are not reported, since discordance with absolute values may lead to misinterpretation of CBC data. Current Interpretive Data was last revised on 2017. Testing performed by: [address] [address] Monocyte pct 7.1 % [facility] Comment: Interpretive Data Percent cell count reference ranges are not reported, since discordance with absolute values may lead to misinterpretation of CBC data. Current Interpretive Data was last revised on 2017. Testing performed by: [address] [address] Eosinophil pct 1.6 % [facility] Comment: Interpretive Data Percent cell count reference ranges are not reported, since discordance with absolute values may lead to misinterpretation of CBC data. Current Interpretive Data was last revised on 2017. Testing performed by: [address] [address] Basophil pct 0.4 % [facility] Comment: Interpretive Data Percent cell count reference ranges are not reported, since discordance with absolute values may lead to misinterpretation of CBC data. Current Interpretive Data was last revised on 2017. Testing performed by: [address] [address] Blood 11/25/2024 12:5 8 PM CDT 11/25/2024 2:12 PM CDT us Notinfile Unknown LAB BLOOD ORDERABLES Final Res ult NILSA [address] [facility] Department [place] [address] * (ABNORMAL) CBC with auto differential (11/25/2024 12:58 PM CDT) WBC 9.83 3.80 - 9.90 K/cumm NILSA Comment:Testing performed by : [address] [address] Hgb 9.9(L) 11.9 - 15.5 g/dL NILSA Comment:Testing performed by : [address] [address] Hct 31.1(L) 35.6 - 45.5 % NILSA Comment:Testing performed by : [address] [address] Plt 351 150 - 400 K/cumm NILSA Comment:Testing performed by : [address] [address] MPV 10.0 9.1 - 12.3 fL NILSA Comment:Testing performed by : [address] [address] RBC 3.07(L) 3.90 - 5.20 M/cumm NILSA Comment:Testing performed by : [address] [address] MCV 101.3(H) 81.3 - 96.4 fL NILSA Comment:Testing performed by : [address] [address] MCH 32.2 27.1 - 33.3 pg NILSA RODRIGES Comment:Testing performed by : [address] [address] MCHC 31.8(L) 32.3 - 35.7 g/dL NILSA RODRIGES Comment:Testing performed by : [address] [address] RDW CV 15.7(H) 11.1 - 14.9 % NILSA RODRIGES Comment:Testing performed by : [address] [address] RDW SD 56.9(H) 35.7 - 48.1 fL NILSA RODRIGES Comment:Testing performed by : [address] [address] NRBC abs 0.02(H) 0.00 - 0.01 K/cumm NILSA RODRIGES Comment:Testing performed by : [address] [address] Blood 11/25/2024 12:5 8 PM CDT 11/25/2024 2:12 PM CDT us Notinfile Unknown LAB BLOOD ORDERABLES Final Res ult NILSA RODRIGES [address] [facility] Department of Laboratories [place], [place] [id number] * (ABNORMAL) Comprehensive metabolic panel (11/25/2024 12:58 PM CDT) Sodium 133(L) 135 - 145 mmol/L NILSA RODRIGES Comment:Testing performed by : [address] [address] Potassium, pl 4.4 3.3 - 4.9 mmol/L NILSA RODRIGES Comment:Testing performed by : [address] [address] Chloride 94(L) 97 - 110 mmol/L NILSA RODRIGES Comment:Testing performed by : [address] [address] CO2 23 22 - 32 mmol/L NILSA RODRIGES Comment:Testing performed by : [address] [address] Anion gap 16(H) 2 - 15 mmol/L NILSA Comment:Testing performed by : [address] [address] BUN 53(H) 6 - 25 mg/dL NILSA Comment:Testing performed by : [address] [address] Creatinine 5.90(H) 0.60 - 1.10 mg/dL NILSA Comment:Testing performed by : [address] [address] Glucose 139 70 - 199 mg/dL [facility] Comment: Interpretive Data Fasting glucose [...] was last revised 2022. Testing performed by: [address] [address] Calcium 9.4 8.5 - 10.3 mg/dL NILSA Comment:Testing performed by : [address] [address] Bilirubin, total <0.2 0.1 - 1.2 mg/dL NILSA Comment:Testing performed by : [address] [address] Protein, pl 7.5 6.5 - 8.5 g/dL NILSA Comment:Testing performed by : [address] [address] Albumin 4.0 3.5 - 5.0 g/dL NILSA Comment:Testing performed by : [address] [address] Alk phos 108 40 - 130 Units/L NILSA Comment:Testing performed by : [address] [address] ALT 9 7 - 45 Units/L NILSA Comment:Testing performed by : [facility], [address] [place] [address]., [address] AST 11 10 - 45 Units/L NILSA Comment:Testing performed by : [facility], [address] [place] [address]., [address] Blood 11/25/2024 12:5 8 PM CDT 11/25/2024 2:12 PM CDT us Notinfile Unknown LAB BLOOD ORDERABLES Final Res ult Performing Organization Address City/State/[facility] Co de Phone Number NILSA [address] [facility] Department [place] [address] * (ABNORMAL) eGFR (11/21/2024 4:15 [...] reviewed 2021. Testing performed by: [facility], [address] [place] [address]., [address] Blood 11/21/2024 4:15 AM CDT 11/21/2024 7:54 AM CDT us Notinfile Unknown LAB BLOOD ORDERABLES Final Res ult NILSA [address] [facility] Department [place] [address] * Differential, auto (11/21/2024 4:15 AM CDT) Neutrophil abs 6.24 1.50 - 6.50 K/cumm NILSA Comment:Testing performed by : [address] [address] Imm gran abs 0.06 0.00 - 0.10 K/cumm NILSA Comment:Testing performed by : [address] [address] Lymphocyte abs 2.12 0.80 - 3.30 K/cumm NILSA Comment:Testing performed by : [address] [address] Monocyte abs 0.70 0.20 - 0.80 K/cumm NILSA Comment:Testing performed by : [address] [address] Eosinophil abs 0.13 0.00 - 0.50 K/cumm NILSA Comment:Testing performed by : [address] [address] Basophil abs 0.04 0.00 - 0.10 K/cumm NILSA Comment:Testing performed by : [address] [address] Neutrophil pct 67.3 % [facility] Comment: Interpretive Data Percent cell count reference ranges are not reported, since discordance with absolute values may lead to misinterpretation of CBC data. Current Interpretive Data was last revised on 2017. Testing performed by: [address] [address] Imm gran pct 0.6 % NILSA Comment: Interpretive Data Percent cell count reference ranges are not reported, since discordance with absolute values may lead to misinterpretation of CBC data. Current Interpretive Data was last revised on 2017. Testing performed by: [address] [address] Lymphocyte pct 22.8 % [facility] Comment: Interpretive Data Percent cell count reference ranges are not reported, since discordance with absolute values may lead to misinterpretation of CBC data. Current Interpretive Data was last revised on 2017. Testing performed by: [address] [address] Monocyte pct 7.5 % NILSA Comment: Interpretive Data Percent cell count reference ranges are not reported, since discordance with absolute values may lead to misinterpretation of CBC data. Current Interpretive Data was last revised on 2017. Testing performed by: [address] [address] Eosinophil pct 1.4 % NILSA RODRIGES Comment: Interpretive Data Percent cell count reference ranges are not reported, since discordance with absolute values may lead to misinterpretation of CBC data. Current Interpretive Data was last revised on 2017. Testing performed by: [address] [address] Basophil pct 0.4 % NILSA RODRIGES Comment: Interpretive Data Percent cell count reference ranges are not reported, since discordance with absolute values may lead to misinterpretation of CBC data. Current Interpretive Data was last revised on 2017. Testing performed by: [address] [address] Blood 11/21/2024 4:15 AM CDT 11/21/2024 7:54 AM CDT us Notinfile Unknown LAB BLOOD ORDERABLES Final Res ult NILSA [address] [facility] Department of Laboratories [place], [place] [id number] * (ABNORMAL) CBC with auto differential (11/21/2024 4:15 AM CDT) WBC 9.29 3.80 - 9.90 K/cumm NILSA RODRIGES Comment:Testing performed by : [address] [address] Hgb 8.9(L) 11.9 - 15.5 g/dL NILSA RODRIGES Comment:Testing performed by : [address] [address] Hct 28.2(L) 35.6 - 45.5 % NILSA Comment:Testing performed by : [address], [address] Plt 246 150 - 400 K/cumm NILSA Comment:Testing performed by : [address], [address] MPV 11.4 9.1 - 12.3 fL NILSA Comment:Testing performed by : [address], [address] RBC 2.72(L) 3.90 - 5.20 M/cumm NILSA Comment:Testing performed by : [address], [address] MCV 103.7(H) 81.3 - 96.4 fL NILSA Comment:Testing performed by : [address], [address] MCH 32.7 27.1 - 33.3 pg NILSA Comment:Testing performed by : [address], [address] MCHC 31.6(L) 32.3 - 35.7 g/dL NILSA Comment:Testing performed by : [address], [address] RDW CV 16.0(H) 11.1 - 14.9 % NILSA Comment:Testing performed by : [address], [address] RDW SD 59.4(H) 35.7 - 48.1 fL NILSA Comment:Testing performed by : [address], [address] NRBC abs 0.00 0.00 - 0.01 K/cumm NILSA Comment:Testing performed by : [address], [address] Blood 11/21/2024 4:15 AM CDT 11/21/2024 7:54 AM CDT us Notinfile Unknown LAB BLOOD ORDERABLES Final Res ult NILSA [address] [facility] Department [place] [address] * (ABNORMAL) Comprehensive metabolic panel (11/21/2024 4:15 AM CDT) Sodium 135 135 - 145 mmol/L NILSA RODRIGES Comment:Testing performed by : [address] [address] Potassium, pl 4.6 3.3 - 4.9 mmol/L NILSA Comment:Testing performed by : [address] [address] Chloride 100 97 - 110 mmol/L NILSA Comment:Testing performed by : [address] [address] CO2 22 22 - 32 mmol/L NILSA Comment:Testing performed by : [address] [address] Anion gap 13 2 - 15 mmol/L NILSA Comment:Testing performed by : [address] [address] BUN 62(H) 6 - 25 mg/dL NILSA Comment:Testing performed by : [address] [address] Creatinine 5.57(H) 0.60 - 1.10 mg/dL NILSA Comment:Testing performed by : [address] [address] Glucose 148 70 - 199 mg/dL NILSA [...] was last revised 2022. Testing performed by: [address] [address] Calcium 9.5 8.5 - 10.3 mg/dL NILSA Comment:Testing performed by : [address] [address] Bilirubin, total <0.2 0.1 - 1.2 mg/dL NILSA Comment:Testing performed by : [address], [place]., [address] Protein, pl 6.7 6.5 - 8.5 g/dL NILSA Comment:Testing performed by : [address] [address] Albumin 3.5 3.5 - 5.0 g/dL NILSA Comment:Testing performed by : [address] [address] Alk phos 120 40 - 130 Units/L NILSA Comment:Testing performed by : [address], [place]., [address] ALT 15 7 - 45 Units/L NILSA Comment:Testing performed by : [address] [address] AST 16 10 - 45 Units/L NILSA Comment:Testing performed by : [address] [address] Blood 11/21/2024 4:15 AM CDT 11/21/2024 7:54 AM CDT us Notinfile Unknown LAB BLOOD ORDERABLES Final Res ult NILSA 9759 [facility] Department [place] [address] * Hepatitis B core antibody, total Blood (11/15/2024 5:15 AM CDT) Hep B core IgG/IgM Nonreactive Nonreactive NILSA RODRIGES Comment:Testing performed by : [facility], [address] [place]., [address] Blood 11/15/2024 5:15 AM CDT 11/15/2024 11:24 AM CDT us Notinfile Unknown LAB MICROBIOLOGY - GENERAL ORD ERABLES Final Result [facility] [address] [address] * Hepatitis B Surface Antigen Blood (11/15/2024 5:15 AM CDT) HepBsAg Nonreactive Nonreactive [facility] Blood 11/15/2024 5:15 AM CDT 11/15/2024 12:58 PM CDT Notinfile Unknown LAB MICROBIOLOGY - GENERAL ORD ERABLES Final Result Performing Organization Address [facility] Co de Phone Number CARLOS ENRIQUE[address] [address] * (ABNORMAL) eGFR (11/14/2024 1:00 PM CDT) eGFR 8(L) >=60 mL/min/1. 73 m2 [facility] Comment: Interpretive Data Reference Interval Normal >/= [...] reviewed 2021. Testing performed by: [facility], [address] [place] [address]., [address] Blood 11/14/2024 1:00 PM CDT 11/14/2024 5:20 PM CDT us Notinfile Unknown LAB BLOOD ORDERABLES Final Res ult NILSA 6728 [facility] Department [place] [address] * Differential, auto (11/14/2024 1:00 PM CDT) Neutrophil abs 6.30 1.50 - 6.50 K/cumm NILSA Comment:Testing performed by : [address] [address] Imm gran abs 0.05 0.00 - 0.10 K/cumm NILSA Comment:Testing performed by : [address] [address] Lymphocyte abs 2.83 0.80 - 3.30 K/cumm NILSA Comment:Testing performed by : [address] [address] Monocyte abs 0.71 0.20 - 0.80 K/cumm NILSA Comment:Testing performed by : [address] [address] Eosinophil abs 0.15 0.00 - 0.50 K/cumm NILSA Comment:Testing performed by : [address] [address] Basophil abs 0.04 0.00 - 0.10 K/cumm NILSA Comment:Testing performed by : [address] [address] Neutrophil pct 62.5 % NILSA Comment: Interpretive Data Percent cell count reference ranges are not reported, since discordance with absolute values may lead to misinterpretation of CBC data. Current Interpretive Data was last revised on 2017. Testing performed by: [address] [address] Imm gran pct 0.5 % NILSA Comment: Interpretive Data Percent cell count reference ranges are not reported, since discordance with absolute values may lead to misinterpretation of CBC data. Current Interpretive Data was last revised on 2017. Testing performed by: [address] [place] [address] Lymphocyte pct 28.1 % NILSA Comment: Interpretive Data Percent cell count reference ranges are not reported, since discordance with absolute values may lead to misinterpretation of CBC data. Current Interpretive Data was last revised on 2017. Testing performed by: [address] [address] Monocyte pct 7.0 % NILSA Comment: Interpretive Data Percent cell count reference ranges are not reported, since discordance with absolute values may lead to misinterpretation of CBC data. Current Interpretive Data was last revised on 2017. Testing performed by: [address] [address] Eosinophil pct 1.5 % NILSA Comment: Interpretive Data Percent cell count reference ranges are not reported, since discordance with absolute values may lead to misinterpretation of CBC data. Current Interpretive Data was last revised on 2017. Testing performed by: [address] [address] Basophil pct 0.4 % NILSA Comment: Interpretive Data Percent cell count reference ranges are not reported, since discordance with absolute values may lead to misinterpretation of CBC data. Current Interpretive Data was last revised on 2017. Testing performed by: [address] [address] Blood 11/14/2024 1:00 PM CDT 11/14/2024 5:20 PM CDT us Notinfile Unknown LAB BLOOD ORDERABLES Final Res ult [facility] [address] [facility] Department [place] [address] * (ABNORMAL) CBC with auto differential (11/14/2024 1:00 PM CDT) WBC 10.08(H) 3.80 - 9.90 K/cumm NILSA Comment:Testing performed by : [address] [address] Hgb 9.4(L) 11.9 - 15.5 g/dL NILSA Comment:Testing performed by : [address] [address] Hct 30.5(L) 35.6 - 45.5 % NILSA Comment:Testing performed by : [address] [address] Plt 297 150 - 400 K/cumm NILSA Comment:Testing performed by : [address] [address] MPV 10.4 9.1 - 12.3 fL NILSA Comment:Testing performed by : [address] [address] RBC 2.84(L) 3.90 - 5.20 M/cumm NILSA Comment:Testing performed by : [address] [address] MCV 107.4(H) 81.3 - 96.4 fL NILSA Comment:Testing performed by : [address] [address] MCH 33.1 27.1 - 33.3 pg NILSA Comment:Testing performed by : [address] [address] MCHC 30.8(L) 32.3 - 35.7 g/dL NILSA Comment:Testing performed by : [address] [address] RDW CV 16.1(H) 11.1 - 14.9 % NILSA Comment:Testing performed by : [address] [address] RDW SD 58.9(H) 35.7 - 48.1 fL NILSA Comment:Testing performed by : [address] [address] NRBC abs 0.14(H) 0.00 - 0.01 K/cumm NILSA Comment:Testing performed by : [address] [address] Blood 11/14/2024 1:00 PM CDT 11/14/2024 5:20 PM CDT us Notinfile Unknown LAB BLOOD ORDERABLES Final Res ult Performing Organization Address [facility] Co de Phone Number NILSA [address] [address] * Hepatitis B surface antibody (immune status) Blood (11/14/2024 1:00 PM CDT) Pathologist [facility] HBsAb (immune status) Reactive NILSA Comment: Interpretive [...] ORD ERABLES Final Result Performing Organization Address [facility] de Phone Number [place] [address] [place] [address] * (ABNORMAL) Comprehensive metabolic panel (11/14/2024 1:00 PM CDT) Pathologist [facility] Sodium 138 135 - 145 mmol/L NILSA Comment:Testing performed by : [address] [address] Potassium, pl 3.9 3.3 - 4.9 mmol/L NILSA Comment:Testing performed by : [address] [address] Chloride 101 97 - 110 mmol/L NILSA Comment:Testing performed by : [address] [address] CO2 22 22 - 32 mmol/L NILSA Comment:Testing performed by : [address] [place] [address] Anion gap 15 2 - 15 mmol/L NILSA Comment:Testing performed by : [address] [address] BUN 52(H) 6 - 25 mg/dL NILSA Comment:Testing performed by : [address] [address] Creatinine 5.47(H) 0.60 - 1.10 mg/dL NILSA Comment:Testing performed by : [address] [address] Glucose 136 70 - 199 mg/dL NILSA [...] was last revised 2022. Testing performed by: [address] [address] Calcium 9.8 8.5 - 10.3 mg/dL NILSA Comment:Testing performed by : [address] [address] Bilirubin, total 0.2 0.1 - 1.2 mg/dL NILSA Comment:Testing performed by : [address] [address] Protein, pl 7.5 6.5 - 8.5 g/dL NILSA Comment:Testing performed by : [address] [address] Albumin 3.9 3.5 - 5.0 g/dL NILSA Comment:Testing performed by : [address] [address] Alk phos 128 40 - 130 Units/L NILSA Comment:Testing performed by : [address] [address] ALT 24 7 - 45 Units/L NILSA RODRIGES Comment:Testing performed by : [address] [address] AST 18 10 - 45 Units/L NILSA Comment:Testing performed by : [address] [address] Blood 11/14/2024 1:00 PM CDT 11/14/2024 5:20 PM CDT us Notinfile Unknown LAB BLOOD ORDERABLES Final Res ult NILSA 3625 [facility] Department [place] [address] * (ABNORMAL) eGFR (11/13/2024 5:35 AM CDT) [...] was last reviewed 2021. Testing performed by: [address] [address] Blood 11/13/2024 5:35 AM CDT 11/13/2024 8:55 AM CDT us Notinfile Unknown LAB BLOOD ORDERABLES Final Res ult NILSA 4500 [facility] Department [place] [address] * (ABNORMAL) CBC with auto differential (11/13/2024 5:35 AM CDT) [facility] Signature WBC 9.10 3.80 - 9.90 K/cumm NILSA Comment:Testing performed by : [address] [address] Hgb 8.9(L) 11.9 - 15.5 g/dL NILSA Comment:Testing performed by : [address] [address] Hct 28.4(L) 35.6 - 45.5 % NILSA Comment:Testing performed by : [address] [address] Plt 270 150 - 400 K/cumm NILSA Comment:Testing performed by : [address] [address] MPV 10.3 9.1 - 12.3 fL NILSA Comment:Testing performed by : [address] [address] RBC 2.70(L) 3.90 - 5.20 M/cumm NILSA Comment:Testing performed by : [address] [address] MCV 105.2(H) 81.3 - 96.4 fL NILSA Comment:Testing performed by : [address] [address] MCH 33.0 27.1 - 33.3 pg NILSA Comment:Testing performed by : [address] [address] MCHC 31.3(L) 32.3 - 35.7 g/dL NILSA Comment:Testing performed by : [address] [address] RDW CV 15.9(H) 11.1 - 14.9 % NILSA Comment:Testing performed by : [address] [address] RDW SD 57.1(H) 35.7 - 48.1 fL NILSA Comment:Testing performed by : [address] [address] NRBC abs 0.33(H) 0.00 - 0.01 K/cumm NILSA Comment:Testing performed by : [address] [address] Blood 11/13/2024 5:35 AM CDT 11/13/2024 8:55 AM CDT us Notinfile Unknown LAB BLOOD ORDERABLES Final Res ult NILSA RODRIGES [facility] Department [place] [address] * (ABNORMAL) Manual Differential (11/13/2024 5:35 AM CDT) Differential Manual NILSA Comment:Testing performed by : [address] [address] Cells Counted 100 NILSA Comment:Testing performed by : [address] [address] Neutrophil abs 5.46 1.50 - 6.50 K/cumm NILSA Comment:Testing performed by : [address] [address] Lymphocyte abs 2.73 0.80 - 3.30 K/cumm NILSA Comment:Testing performed by : [address] [address] Monocyte abs 0.82(H) 0.20 - 0.80 K/cumm NILSA Comment:Testing performed by : [address] [address] Eosinophil abs 0.09 0.00 - 0.50 K/cumm NILSA Comment:Testing performed by : [address] [address] Neutrophil pct 60.0 % NILSA Comment: Interpretive Data Percent cell count reference ranges are not reported, since discordance with absolute values may lead to misinterpretation of CBC data. Current Interpretive Data was last revised on 2017. Testing performed by: [address] [address] Lymphocyte pct 30.0 % [facility] Comment: Interpretive Data Percent cell count reference ranges are not reported, since discordance with absolute values may lead to misinterpretation of CBC data. Current Interpretive Data was last revised on 2017. Testing performed by: [address] [address] Monocyte pct 9.0 % [facility] Comment: Interpretive Data Percent cell count reference ranges are not reported, since discordance with absolute values may lead to misinterpretation of CBC data. Current Interpretive Data was last revised on 2017. Testing performed by: [address] [address] Eosinophil pct 1.0 % [facility] Comment: Interpretive Data Percent cell count reference ranges are not reported, since discordance with absolute values may lead to misinterpretation of CBC data. Current Interpretive Data was last revised on 2017. Testing performed by: [address] [address] RBC morphology Present(A) NILSA Comment:Testing performed by : [address] [address] Anisocytosis Moderate(A ) NILSA Comment:Testing performed by : [address] [address] Macrocytes 8-15/HPF(A ) NILSA Comment:Testing performed by : [address] [address] Schistocytes 1-2/HPF(A) NILSA Comment:Testing performed by : [address] [address] Platelet clumping Present(A) NILSA Comment:Testing performed by : [address] [address] Blood 11/13/2024 5:35 AM CDT 11/13/2024 8:55 AM CDT us Notinfile Unknown LAB BLOOD ORDERABLES Final Res ult NILSA 4500 [facility] Department [place] [address] * (ABNORMAL) Comprehensive metabolic panel (11/13/2024 5:35 AM CDT) Sodium 139 135 - 145 mmol/L NILSA Comment:Testing performed by : [address] [address] Potassium, pl 4.2 3.3 - 4.9 mmol/L NILSA Comment:Testing performed by : [address] [address] Chloride 102 97 - 110 mmol/L NILSA Comment:Testing performed by : [address] [address] CO2 25 22 - 32 mmol/L NILSA Comment:Testing performed by : [address] [address] Anion gap 12 2 - 15 mmol/L NILSA Comment:Testing performed by : [address] [address] BUN 30(H) 6 - 25 mg/dL NILSA Comment:Testing performed by : [address] [address] Creatinine 4.07(H) 0.60 - 1.10 mg/dL NILSA Comment:Testing performed by : [address] [address] Glucose 144 70 - 199 mg/dL NILSA [...] was last revised 2022. Testing performed by: [address] [place] [address] Calcium 9.4 8.5 - 10.3 mg/dL NILSA Comment:Testing performed by : [address] [address] Bilirubin, total 0.2 0.1 - 1.2 mg/dL NILSA Comment:Testing performed by : [address] [address] Protein, pl 7.0 6.5 - 8.5 g/dL NILSA Comment:Testing performed by : [address] [address] Albumin 3.7 3.5 - 5.0 g/dL NILSA Comment:Testing performed by : [address] [address] Alk phos 127 40 - 130 Units/L NILSA Comment:Testing performed by : [address] [address] ALT 21 7 - 45 Units/L NILSA Comment:Testing performed by : [address] [address] AST 22 10 - 45 Units/L NILSA Comment:Testing performed by : [address] [address] Blood 11/13/2024 5:35 AM CDT 11/13/2024 8:55 AM CDT us Notinfile Unknown LAB BLOOD ORDERABLES Final Res ult [facility] [address] [facility] Department [place] [address] * POCT glucose (11/05/2024 11:49 AM CDT) [facility] Signature Glucose, POC 187 70 - 199 mg/dL Glucose comment 1 RN/MD Notified NILSA Blood 11/05/2024 11:4 9 AM CDT 11/05/2024 11:49 AM CDT us Juan J Heller MD LAB POCT ORDERABLES - DEVICE Final Result Performing Organization Address [facility] Co de Phone Number NILSA [address] [place] [address] * (ABNORMAL) eGFR (11/05/2024 6:52 AM CDT) [facility] eGFR 8(L) >=60 mL/min/1. 73 [...] ORDERABLES Fin al Result Performing Organization Address [facility] Co de Phone Number NILSA [address] [place] [address] * Differential, auto (11/05/2024 6:52 AM CDT) [facility] Neutrophil abs 5.74 1.50 - 6.50 K/cumm Imm gran abs 0.05 0.00 - 0.10 K/cumm [facility] Lymphocyte abs 1.98 0.80 - 3.30 K/cumm [facility] Monocyte abs 0.73 0.20 - 0.80 K/cumm [facility] Eosinophil abs 0.13 0.00 - 0.50 K/cumm [facility] Basophil abs 0.03 0.00 - 0.10 K/cumm [facility] Neutrophil pct 66.3 % [facility] Comment: Interpretive Data Percent cell count reference ranges are not reported, since discordance with absolute values may lead to misinterpretation of CBC data. Current Interpretive Data was last revised on 2017. Imm gran pct 0.6 % [facility] Comment: Interpretive Data Percent cell count reference ranges are not reported, since discordance with absolute values may lead to misinterpretation of CBC data. Current Interpretive Data was last revised on 2017. Lymphocyte pct 22.9 % [facility] Comment: Interpretive Data Percent cell count reference ranges are not reported, since discordance with absolute values may lead to misinterpretation of CBC data. Current Interpretive Data was last revised on 2017. Monocyte pct 8.4 % [facility] Comment: Interpretive Data Percent cell count reference ranges are not reported, since discordance with absolute values may lead to misinterpretation of CBC data. Current Interpretive Data was last revised on 2017. Eosinophil pct 1.5 % [facility] Comment: Interpretive Data Percent cell count reference ranges are not reported, since discordance with absolute values may lead to misinterpretation of CBC data. Current Interpretive Data was last revised on 2017. Basophil pct 0.3 % [facility] Comment: Interpretive Data Percent cell count reference ranges are not reported, since discordance with absolute values may lead to misinterpretation of CBC data. Current Interpretive Data was last revised on 2017. Blood 11/05/2024 6:52 AM CDT 11/05/2024 7:12 AM CDT us Brad Sebastien Smallwood NP LAB BLOOD ORDERABLES Fin al Result NILSA 4[address] [facility] Department of Laboratories [place], [place] [id number] * (ABNORMAL) CBC with auto differential (11/05/2024 6:52 AM CDT) WBC 8.66 3.80 - 9.90 K/cumm Hgb 8.6(L) 11.9 - 15.5 g/dL [facility] Hct 26.6(L) 35.6 - 45.5 % [facility] Plt 215 150 - 400 K/cumm [facility] MPV 10.4 9.1 - 12.3 fL [facility] RBC 2.60(L) 3.90 - 5.20 M/cumm [facility] MCV 102.3(H) 81.3 - 96.4 fL [facility] MCH 33.1 27.1 - 33.3 pg [facility] MCHC 32.3 32.3 - 35.7 g/dL [facility] RDW CV 13.8 11.1 - 14.9 % [facility] RDW SD 51.4(H) 35.7 - 48.1 fL [facility] NRBC abs 0.09(H) 0.00 - 0.01 K/cumm [facility] Blood 11/05/2024 6:52 AM CDT 11/05/2024 7:12 AM CDT Brad Sebastien Smallwood [employer] LAB BLOOD ORDERABLES Fin al Result [facility] [address] [facility] Department [place] [address] * (ABNORMAL) Basic metabolic panel (11/05/2024 6:52 AM CDT) Sodium 135 135 - 145 mmol/L Potassium, pl 4.5 3.3 - 4.9 mmol/L [facility] Chloride 96(L) 97 - 110 mmol/L [facility] CO2 28 22 - 32 mmol/L [facility] Anion gap 11 2 - 15 mmol/L [facility] BUN 34(H) 6 - 25 mg/dL [facility] Creatinine 5.23(H) 0.60 - 1.10 mg/dL [facility] Glucose 145 70 - 199 mg/dL [facility] Comment: Interpretive Data Fasting glucose [...] Calcium 9.0 8.5 - 10.3 mg/dL [facility] Blood 11/05/2024 6:52 AM CDT 11/05/2024 7:12 AM CDT us Brad Sebastien Smallwood NP LAB BLOOD ORDERABLES Fin al Result Performing Organization Address [facility] Co de Phone Number [address] [place] [address] * (ABNORMAL) POCT glucose (11/04/2024 9:22 PM CDT) Glucose, POC 223(H) 70 - 199 mg/dL Blood 11/04/2024 9:22 PM CDT 11/04/2024 9:22 PM CDT Juan J Heller MD LAB POCT ORDERABLES - DEVICE Final Result Performing Organization Address [facility] Co de Phone Number [address] [place] [address] * (ABNORMAL) POCT glucose (11/04/2024 4:33 PM CDT) Glucose, POC 240(H) 70 - 199 mg/dL Glucose comment 1 Use This Result [facility] Glucose comment 2 RN/MD Notified [facility] Blood 11/04/2024 4:33 PM CDT 11/04/2024 4:33 PM CDT Juan J Heller MD LAB POCT ORDERABLES - DEVICE Final Result Performing Organization Address [facility]/ZIP Co de Phone Number CERNER MH [address] [place] [address] * POCT glucose (11/04/2024 11:12 AM CDT) Glucose, POC 177 70 - 199 mg/dL Glucose comment 1 RN/MD Notified [facility] Blood 11/04/2024 11:1 2 AM CDT 11/04/2024 11:12 AM CDT Juan J Heller MD LAB POCT ORDERABLES - DEVICE Final Result Performing Organization Address [facility] Co de Phone Number [address] [address] * POCT glucose (11/04/2024 9:37 AM CDT) [facility] Signature Glucose, POC 138 70 - 199 mg/dL Blood 11/04/2024 9:37 AM CDT 11/04/2024 9:37 AM CDT Juan J Heller MD LAB POCT ORDERABLES - DEVICE Final Result Performing Organization Address City/[facility] Co de Phone Number [address] [address] * POCT glucose (11/04/2024 6:09 AM CDT) Glucose, POC 190 70 - 199 mg/dL Blood 11/04/2024 6:09 AM CDT 11/04/2024 6:09 AM CDT Juan J Heller MD LAB POCT ORDERABLES - DEVICE Final Result Performing Organization Address [facility] Co de Phone Number [address] [place] [address] * (ABNORMAL) eGFR (11/04/2024 4:16 AM CDT) [facility] eGFR 6(L) >=60 mL/min/1. 73 [...] 4:35 AM CDT us Brad Sebastien Smallwood [employer] LAB BLOOD ORDERABLES Fin al Result [facility] [address] [facility] Department [place] [address] * Differential, auto (11/04/2024 4:16 AM CDT) Pathologist [facility] Neutrophil abs 4.99 1.50 - 6.50 K/cumm Imm gran abs 0.05 0.00 - 0.10 K/cumm [facility] Lymphocyte abs 2.56 0.80 - 3.30 K/cumm [facility] Monocyte abs 0.70 0.20 - 0.80 K/cumm [facility] Eosinophil abs 0.15 0.00 - 0.50 K/cumm [facility] Basophil abs 0.03 0.00 - 0.10 K/cumm [facility] Neutrophil pct 58.7 % [facility] Comment: Interpretive Data Percent cell count reference ranges are not reported, since discordance with absolute values may lead to misinterpretation of CBC data. Current Interpretive Data was last revised on 2017. Imm gran pct 0.6 % [facility] Comment: Interpretive Data Percent cell count reference ranges are not reported, since discordance with absolute values may lead to misinterpretation of CBC data. Current Interpretive Data was last revised on 2017. Lymphocyte pct 30.2 % [facility] Comment: Interpretive Data Percent cell count reference ranges are not reported, since discordance with absolute values may lead to misinterpretation of CBC data. Current Interpretive Data was last revised on 2017. Monocyte pct 8.3 % [facility] Comment: Interpretive Data Percent cell count reference ranges are not reported, since discordance with absolute values may lead to misinterpretation of CBC data. Current Interpretive Data was last revised on 2017. Eosinophil pct 1.8 % [facility] Comment: Interpretive Data Percent cell count reference ranges are not reported, since discordance with absolute values may lead to misinterpretation of CBC data. Current Interpretive Data was last revised on 2017. Basophil pct 0.4 % [facility] Comment: Interpretive Data Percent cell count reference ranges are not reported, since discordance with absolute values may lead to misinterpretation of CBC data. Current Interpretive Data was last revised on 2017. Blood 11/04/2024 4:16 AM CDT 11/04/2024 4:35 AM CDT us Brad Sebastien Smallwood [employer] LAB BLOOD ORDERABLES Fin al Result [facility] [address] [facility] Department of Laboratories [place], [place] [id number] * (ABNORMAL) CBC with auto differential (11/04/2024 4:16 AM CDT) WBC 8.48 3.80 - 9.90 K/cumm Hgb 7.3(L) 11.9 - 15.5 g/dL [facility] Hct 22.2(L) 35.6 - 45.5 % [facility] Plt 196 150 - 400 K/cumm [facility] MPV 10.4 9.1 - 12.3 fL [facility] RBC 2.24(L) 3.90 - 5.20 M/cumm [facility] MCV 99.1(H) 81.3 - 96.4 fL [facility] MCH 32.6 27.1 - 33.3 pg [facility] MCHC 32.9 32.3 - 35.7 g/dL [facility] RDW CV 13.4 11.1 - 14.9 % [facility] RDW SD 48.3(H) 35.7 - 48.1 fL [facility] NRBC abs 0.02(H) 0.00 - 0.01 K/cumm [facility] Blood 11/04/2024 4:16 AM CDT 11/04/2024 4:35 AM CDT us Brad Smallwood NP LAB BLOOD ORDERABLES Fin al Result [facility] [address] [facility] Department [place] [address] * (ABNORMAL) Basic metabolic panel (11/04/2024 4:16 AM CDT) Sodium 135 135 - 145 mmol/L Potassium, pl 4.7 3.3 - 4.9 mmol/L [facility] Chloride 95(L) 97 - 110 mmol/L [facility] CO2 25 22 - 32 mmol/L [facility] Anion gap 15 2 - 15 mmol/L [facility] BUN 57(H) 6 - 25 mg/dL [facility] Creatinine 6.58(H) 0.60 - 1.10 mg/dL [facility] Glucose 153 70 - 199 mg/dL [facility] Comment: Interpretive Data Fasting glucose [...] 2022. Calcium 8.3(L) 8.5 - 10.3 mg/dL [facility] Blood 11/04/2024 4:16 AM CDT 11/04/2024 4:35 AM CDT Brad Smallwood NP LAB BLOOD ORDERABLES Fin al Result Performing Organization Address [facility] Co de Phone Number [address] [place] [address] * (ABNORMAL) POCT glucose (11/03/2024 8:27 PM CDT) Glucose, POC 222(H) 70 - 199 mg/dL Glucose comment 1 RN/MD Notified [facility] Blood 11/03/2024 8:27 PM CDT 11/03/2024 8:27 PM CDT Juan J Heller MD LAB POCT ORDERABLES - DEVICE Final Result Performing Organization Address [facility] Co de Phone Number [address] [place] [address] * (ABNORMAL) POCT glucose (11/03/2024 3:45 PM CDT) Glucose, POC 217(H) 70 - 199 mg/dL Glucose comment 1 Use This Result [facility] Glucose comment 2 RN/MD Notified [facility] Blood 11/03/2024 3:45 PM CDT 11/03/2024 3:45 PM CDT Juan J Heller MD LAB POCT ORDERABLES - DEVICE Final Result Performing Organization Address [facility] Co de Phone Number [address] [place] [address] * MRI Brain WO Contrast (11/03/2024 1:17 [...] Hyperostosis frontalis interna. ORBITS: No acute abnormality. [place] ocular lenses replaced bilaterally. PARANASAL SINUSES AND MASTOIDS: Tiny focus of opacifying material in the dependent left sphenoid sinuses. Slight scattered fluid about the rjoci-sfxovuj-wvhh-left mastoid air cells. Scattered fluid OTHER: No other significant finding. IMPRESSION: Within the limitations of patient motion artifact, no acute intracranial process with chronic findings as above. THIS IS AN ELECTRONICALLY VERIFIED FINAL REPORT 11/03/2024 1:26 PM - Electronically signed by Redd Hendrickson M.D. CHANDA T: Report ID: [id number] Reading Location: [id number] Procedure Note Redd Hendrickson MD - 11/03/2024 EXAM DESCRIPTION: MRI BRAIN WO CONTRAST REASON FOR STUDY: Altered mental status of unspecified duration. Noprovision of focal neurologic deficits. No provided history of trauma or inciting and/or aggravating events. No provided past medical or surgical history. TECHNIQUE: Multiplanar imaging includes non-contrasted T1, T2, FLAIR, and diffusion with ADC map sequences. Additional sequence(s) sensitive [employer]. Images stored on PACS. Patient motion artifact [...] Hyperostosis frontalis interna. ORBITS: No acute abnormality. [place] ocular lenses replaced bilaterally. PARANASAL SINUSES AND MASTOIDS: Tiny focus of opacifying material in the dependent left sphenoid sinuses. Slight scattered fluid about the atiue-iktklnw-mjeg-left mastoid air cells. Scattered fluid OTHER: No other significant finding. IMPRESSION: Within the limitations of patient motion artifact, no acute intracranial process with chronic findings as above. THIS IS AN ELECTRONICALLY VERIFIED FINAL REPORT 11/03/2024 1:26 PM - Electronically signed by Redd Hendrickson M.D. CHANDA T: Report ID: [id number] Reading Location: [id number] Juan J Heller MD IMG MRI PROCEDURES Final Result * (ABNORMAL) POCT glucose (11/03/2024 11:14 AM CDT) [facility] Glucose, POC 259(H) 70 - 199 mg/dL Glucose comment 1 Use This Result [facility] Glucose comment 2 RN/MD Notified [facility] Blood 11/03/2024 11:1 4 AM CDT 11/03/2024 11:14 AM CDT Juan J Heller MD LAB POCT ORDERABLES - DEVICE Final Result Performing Organization Address [facility] Co de Phone Number [address] [place] [address] * POCT glucose (11/03/2024 7:17 AM CDT) [facility] Glucose, POC 139 70 - 199 mg/dL Glucose comment 1 Use This Result [facility] Glucose comment 2 RN/MD Notified [facility] Blood 11/03/2024 7:17 AM CDT 11/03/2024 7:17 AM CDT Juan J Heller MD LAB POCT ORDERABLES - DEVICE Final Result Performing Organization Address [facility] Co de Phone Number [address] [place] [address] * (ABNORMAL) eGFR (11/03/2024 2:33 AM CDT) [facility] eGFR 10(L) >=60 mL/min/1. 73 m2 [...] NP LAB BLOOD ORDERABLES Fin al Result [place] [id number] [facility] Department [place] [address] * Differential, auto (11/03/2024 2:33 AM CDT) Neutrophil abs 5.20 1.50 - 6.50 K/cumm Imm gran abs 0.03 0.00 - 0.10 K/cumm [facility] Lymphocyte abs 2.47 0.80 - 3.30 K/cumm [facility] Monocyte abs 0.66 0.20 - 0.80 K/cumm [facility] Eosinophil abs 0.14 0.00 - 0.50 K/cumm [facility] Basophil abs 0.04 0.00 - 0.10 K/cumm [facility] Neutrophil pct 60.9 % [facility] Comment: Interpretive Data Percent cell count reference ranges are not reported, since discordance with absolute values may lead to misinterpretation of CBC data. Current Interpretive Data was last revised on 2017. Imm gran pct 0.4 % [facility] Comment: Interpretive Data Percent cell count reference ranges are not reported, since discordance with absolute values may lead to misinterpretation of CBC data. Current Interpretive Data was last revised on 2017. Lymphocyte pct 28.9 % [facility] Comment: Interpretive Data Percent cell count reference ranges are not reported, since discordance with absolute values may lead to misinterpretation of CBC data. Current Interpretive Data was last revised on 2017. Monocyte pct 7.7 % [facility] Comment: Interpretive Data Percent cell count reference ranges are not reported, since discordance with absolute values may lead to misinterpretation of CBC data. Current Interpretive Data was last revised on 2017. Eosinophil pct 1.6 % [facility] Comment: Interpretive Data Percent cell count reference ranges are not reported, since discordance with absolute values may lead to misinterpretation of CBC data. Current Interpretive Data was last revised on 2017. Basophil pct 0.5 % [facility] Comment: Interpretive Data Percent cell count reference ranges are not reported, since discordance with absolute values may lead to misinterpretation of CBC data. Current Interpretive Data was last revised on 2017. Blood 11/03/2024 2:33 AM CDT 11/03/2024 3:03 AM CDT us Brad Sebastien Smallwood [employer] LAB BLOOD ORDERABLES Fin al Result [facility] [address] [facility] Department [place] [address] * (ABNORMAL) CBC with auto differential (11/03/2024 2:33 AM CDT) WBC 8.54 3.80 - 9.90 K/cumm Hgb 7.4(L) 11.9 - 15.5 g/dL [facility] Hct 22.8(L) 35.6 - 45.5 % [facility] Plt 195 150 - 400 K/cumm [facility] MPV 10.8 9.1 - 12.3 fL [facility] RBC 2.25(L) 3.90 - 5.20 M/cumm [facility] MCV 101.3(H) 81.3 - 96.4 fL [facility] MCH 32.9 27.1 - 33.3 pg [facility] MCHC 32.5 32.3 - 35.7 g/dL [facility] RDW CV 13.3 11.1 - 14.9 % [facility] RDW SD 49.3(H) 35.7 - 48.1 fL [facility] NRBC abs 0.00 0.00 - 0.01 K/cumm [facility] Blood 11/03/2024 2:33 AM CDT 11/03/2024 3:03 AM CDT [facility] LAB BLOOD ORDERABLES Fin al Result Performing Organization Address [facility] Co de Phone Number [facility] [address] [address] * (ABNORMAL) Basic metabolic panel (11/03/2024 2:33 AM CDT) Sodium 135 135 - 145 mmol/L Potassium, pl 4.1 3.3 - 4.9 mmol/L [facility] Chloride 95(L) 97 - 110 mmol/L [facility] CO2 27 22 - 32 mmol/L [facility] Anion gap 13 2 - 15 mmol/L [facility] BUN 38(H) 6 - 25 mg/dL [facility] Creatinine 4.56(H) 0.60 - 1.10 mg/dL [facility] Glucose 131 70 - 199 mg/dL [facility] Comment: Interpretive Data Fasting glucose [...] 2022. Calcium 8.0(L) 8.5 - 10.3 mg/dL [facility] Blood 11/03/2024 2:33 AM CDT 11/03/2024 3:03 AM CDT [facility] [employer] LAB BLOOD ORDERABLES Fin al Result Performing Organization Address [facility] Co de Phone Number [address] [place] [address] * POCT glucose (11/02/2024 9:40 PM CDT) Glucose, POC 157 70 - 199 mg/dL Glucose comment 1 RN/MD Notified [facility] Blood 11/02/2024 9:40 PM CDT 11/02/2024 9:40 PM CDT Juan J Heller MD LAB POCT ORDERABLES - DEVICE Final Result Performing Organization Address [facility] Co de Phone Number NILSA [address] [place] [address] * Ammonia (11/02/2024 6:56 PM CDT) Ammonia 24 <=50 mcmol/L Comment: Please note on 2023 the unit of measure changed from mcg/dL to mcmol/L. Current Interpretive Data was last revised on 2023. Blood 11/02/2024 6:56 PM CDT 11/02/2024 7:04 PM CDT Juan J Heller MD LAB BLOOD ORDERABLE S Final Result Performing Organization Address [facility] de Phone Number [address] [address] * CT Head WO Contrast (11/02/2024 6:31 [...] Salvador Bronson M.D. KT T: Report ID: [id number] Reading Location: [id number] Procedure Note Salvador Bronson MD - 11/02/2024 [...] Salvador Bronson M.D. KT T: Report ID: [id number] Reading Location: [id number] Juan J Heller MD [facility] [place]ED[place] F inal Result * (ABNORMAL) POC Blood Gas and Chemistries, Arterial - (11/02/2024 6:17 PM CDT) pH, art POC 7.45 7.35 - 7.45 pCO2, art POC 40 35 - 45 mmHg [facility] pO2, art POC 95 83 - 108 mmHg [facility] HCO3, art (Calc) POC 28 20 - 30 mmol/L [facility] Base excess, art POC 4 mmol/L [facility] Comment: Interpretive Data No reference range established. Current interpretive data was last revised 2020. O2 Sat, art (Calc) POC 95 94 - 98 % [facility] Oxy Hgb, art POC 95.4(H) 90.0 - 95.0 % [facility] Met Hgb, art POC 0.0 0.0 - 1.9 % [facility] Carboxy Hgb, art POC 0.0 0.0 - 2.9 % [facility] Hemoglobin, art POC 8.8(L) 11.9 - 15.5 g/dL [facility] Blood 11/02/2024 6:17 PM CDT 11/02/2024 6:17 PM CDT Juan J Helelr MD LAB POCT ORDERABLES - DEVICE Final Result Performing Organization Address [facility] Co de Phone Number [address] [place] [address] * POCT glucose (11/02/2024 5:13 PM CDT) Glucose, POC 150 70 - 199 mg/dL Glucose comment 1 RN/ Notified [facility] Blood 11/02/2024 5:13 PM CDT 11/02/2024 5:13 PM CDT Juan J Heller MD LAB POCT ORDERABLES - DEVICE Final Result Performing Organization Address City/[facility]/ZIP Co de Phone Number [address] [place] [address] * POCT glucose (11/02/2024 12:32 PM CDT) Glucose, POC 173 70 - 199 mg/dL Glucose comment 1 RN/MD Notified [facility] Blood 11/02/2024 12:3 2 PM CDT 11/02/2024 12:32 PM CDT Juan J Heller MD LAB POCT ORDERABLES - DEVICE Final Result Performing Organization Address City/[facility]/ZIP Co de Phone Number [address] [address] * POCT glucose (11/02/2024 7:50 AM CDT) Glucose, POC 184 70 - 199 mg/dL Glucose comment 1 RN/MD Notified [facility] Blood 11/02/2024 7:50 AM CDT 11/02/2024 7:50 AM CDT Juan J Heller MD LAB POCT ORDERABLES - DEVICE Final Result Performing Organization Address [facility] de Phone Number [address] [address] * Hepatitis B surface antibody (immune status) [...] HBsAb (immune status) index 628.0 mIUnits/m L [facility] Blood 11/02/2024 7:14 AM CDT 11/02/2024 7:32 AM CDT Rohan Funes MD LAB MICROBIOLOGY - GENERAL ORDERABLES Final Result Performing Organization Address City/[facility] Co de Phone Number [address] [address] * Hepatitis B Surface Antigen Blood (11/02/2024 7:14 AM CDT) HepBsAg Nonreactive Nonreactive Blood 11/02/2024 7:14 AM CDT 11/02/2024 7:32 AM CDT Rohan Funes MD LAB MICROBIOLOGY - GENERAL ORDERABLES Final Result Performing Organization Address [facility] Co de Phone Number NILSA [address] [place] [address] * (ABNORMAL) eGFR (11/02/2024 3:48 AM CDT) [...] ORDERABLES Fin al Result Performing Organization Address City/[facility]/ZIP Co de Phone Number NILSA [address] [place] [address] * Differential, auto (11/02/2024 3:48 AM CDT) Pathologist [facility] Neutrophil abs 5.44 1.50 - 6.50 K/cumm Imm gran abs 0.03 0.00 - 0.10 K/cumm [facility] Lymphocyte abs 2.16 0.80 - 3.30 K/cumm [facility] Monocyte abs 0.62 0.20 - 0.80 K/cumm [facility] Eosinophil abs 0.12 0.00 - 0.50 K/cumm [facility] Basophil abs 0.02 0.00 - 0.10 K/cumm [facility] Neutrophil pct 64.9 % [facility] Comment: Interpretive Data Percent cell count reference ranges are not reported, since discordance with absolute values may lead to misinterpretation of CBC data. Current Interpretive Data was last revised on 2017. Imm gran pct 0.4 % [facility] Comment: Interpretive Data Percent cell count reference ranges are not reported, since discordance with absolute values may lead to misinterpretation of CBC data. Current Interpretive Data was last revised on 2017. Lymphocyte pct 25.7 % [facility] Comment: Interpretive Data Percent cell count reference ranges are not reported, since discordance with absolute values may lead to misinterpretation of CBC data. Current Interpretive Data was last revised on 2017. Monocyte pct 7.4 % [facility] Comment: Interpretive Data Percent cell count reference ranges are not reported, since discordance with absolute values may lead to misinterpretation of CBC data. Current Interpretive Data was last revised on 2017. Eosinophil pct 1.4 % [facility] Comment: Interpretive Data Percent cell count reference ranges are not reported, since discordance with absolute values may lead to misinterpretation of CBC data. Current Interpretive Data was last revised on 2017. Basophil pct 0.2 % [facility] Comment: Interpretive Data Percent cell count reference ranges are not reported, since discordance with absolute values may lead to misinterpretation of CBC data. Current Interpretive Data was last revised on 2017. Blood 11/02/2024 3:48 AM CDT 11/02/2024 4:01 AM CDT us Brad Sebastien Smallwood [employer] LAB BLOOD ORDERABLES Fin al Result Performing Organization Address [facility] de Phone Number [address] [address] * (ABNORMAL) CBC with auto differential (11/02/2024 3:48 AM CDT) Pathologist [facility] WBC 8.39 3.80 - 9.90 K/cumm Hgb 7.2(L) 11.9 - 15.5 g/dL [facility] Hct 22.3(L) 35.6 - 45.5 % [facility] Plt 186 150 - 400 K/cumm [facility] MPV 10.9 9.1 - 12.3 fL [facility] RBC 2.20(L) 3.90 - 5.20 M/cumm [facility] MCV 101.4(H) 81.3 - 96.4 fL [facility] MCH 32.7 27.1 - 33.3 pg [facility] MCHC 32.3 32.3 - 35.7 g/dL [facility] RDW CV 13.5 11.1 - 14.9 % [facility] RDW SD 49.7(H) 35.7 - 48.1 fL [facility] NRBC abs 0.00 0.00 - 0.01 K/cumm [facility] Blood 11/02/2024 3:48 AM CDT 11/02/2024 4:01 AM CDT Brad Tabermargaret Smallwood [employer] LAB BLOOD ORDERABLES Fin al Result Performing Organization Address [facility] de Phone Number [address] [address] * Folate (11/02/2024 3:48 AM CDT) [facility] Folic acid 7.0 >=5.0 ng/mL Blood 11/02/2024 3:48 AM CDT 11/02/2024 4:01 AM CDT Brad Tabermargaret Smallwood [employer] LAB BLOOD ORDERABLES Fin al Result NILSA [address] Department [place] [address] * (ABNORMAL) Basic metabolic panel (11/02/2024 3:48 AM CDT) Sodium 135 135 - 145 mmol/L Potassium, pl 4.6 3.3 - 4.9 mmol/L [facility] Chloride 99 97 - 110 mmol/L [facility] CO2 24 22 - 32 mmol/L [facility] Anion gap 12 2 - 15 mmol/L [facility] BUN 64(H) 6 - 25 mg/dL [facility] Creatinine 5.43(H) 0.60 - 1.10 mg/dL [facility] Glucose 227(H) 70 - 199 mg/dL [facility] Comment: Interpretive Data Fasting glucose [...] Calcium 9.0 8.5 - 10.3 mg/dL [facility] Blood 11/02/2024 3:48 AM CDT 11/02/2024 4:01 AM CDT us Brad Sebastien Smallwood [employer] LAB BLOOD ORDERABLES Fin al Result [address] [place] [address] * Lactate (11/01/2024 10:05 PM CDT) Pathologist [facility] Lactate 1.4 0.7 - 2.0 mmol/L Blood 11/01/2024 10:0 5 PM CDT 11/01/2024 10:15 PM CDT Brad Tabernero Rufin [employer] LAB BLOOD ORDERABLES Fin al Result Performing Organization Address City/[facility]/ZIP Co de Phone Number [address] [place] [address] * (ABNORMAL) Erythrocyte sedimentation rate (11/01/2024 10:05 PM CDT) Erythrocyte sedimentation rate 43(H) 1 - 30 mm/hr Blood 11/01/2024 10:0 5 PM CDT 11/01/2024 10:15 PM CDT Brad Tabernero Rufin [employer] LAB BLOOD ORDERABLES Fin al Result Performing Organization Address [facility] Co de Phone Number [address] [address] * CRP (acute phase) (11/01/2024 10:05 PM CDT) CRP 3.6 <=10.0 mg/L Blood 11/01/2024 10:0 5 PM CDT 11/01/2024 10:15 PM CDT Brad Tabernero Rufin [employer] LAB BLOOD ORDERABLES Fin al Result Performing Organization Address [facility] Co de Phone Number [address] [place] [address] * Phosphorus (11/01/2024 10:05 PM CDT) Phosphorus, pl 4.3 2.3 - 4.5 mg/dL Blood 11/01/2024 10:0 5 PM CDT 11/01/2024 10:15 PM CDT Brad Tabernero Rufin [employer] LAB BLOOD ORDERABLES Fin al Result Performing Organization Address City/[facility]/ZIP Co de Phone Number [address] [place] [address] * Magnesium (11/01/2024 10:05 PM CDT) Magnesium 1.5 1.4 - 2.5 mg/dL Blood 11/01/2024 10:0 5 PM CDT 11/01/2024 10:15 PM CDT [facility] LAB BLOOD ORDERABLES Fin al Result Performing Organization Address [facility] de Phone Number [address] [address] * (ABNORMAL) Hemoglobin A1c (11/01/2024 10:05 PM CDT) Pathologist [facility] Hgb A1C 7.1(H) 4.0 - 5.6 % Estimated Average Glucose 157 mg/dL [facility] Comment: The ADA recommends reporting an estimated Average Glucose (eAG) with all Hemoglobin A1c results using the equation derived from a study of 507 normal and diabetic adults. Minority populations were underrepresented and children were not included. (Diabetes Care 31:8242-6777, 2008). The eAG is not equivalent to a fasting glucose. Blood 11/01/2024 10:0 5 PM CDT 11/01/2024 10:15 PM CDT [facility] LAB BLOOD ORDERABLES Fin al Result Performing Organization Address [facility] de Phone Number [address] [address] * Vitamin B12 (11/01/2024 10:05 PM CDT) Pathologist [facility] Vitamin B12 584 230 - 1,250 pg/mL Blood 11/01/2024 10:0 5 PM CDT 11/01/2024 10:15 PM CDT [facility] BLOOD ORDERABLES Fin al Result Performing Organization Address [facility] [place] de Phone Number [address] Department [place] [address] * (ABNORMAL) Lipid panel (11/01/2024 10:05 PM [...] revised on 2024. Non-HDL Cholesterol 60 mg/dL NISLA RODRIGES Comment: Interpretive Data Ages < or [...] BLOOD ORDERABLES Fin al Result NILSA RODRIGES [address] [facility] Department [place] [address] * (ABNORMAL) POCT glucose (11/01/2024 9:59 PM CDT) Glucose, POC 217(H) 70 - 199 mg/dL Glucose comment 1 Use This Result [facility] Glucose comment 2 RN/MD Notified [facility] Blood 11/01/2024 9:59 PM CDT 11/01/2024 9:59 PM CDT us Des Lopez MD LAB POCT ORDERABLES - DEVICE F inal Result Performing Organization Address [facility] [place] de Phone Number [address] [place] [address] * (ABNORMAL) Urinalysis reflex to microscopic and culture Urine (11/01/2024 7:23 PM CDT) Color, ur Straw Yellow Clarity, ur Clear Clear [facility] Specific gravity, ur 1.007 1.003 - 1.030 [facility] pH, urine 7.5 [facility] Comment: Interpretive Data U rine pH is affected by diet, medications, systemic acid-base disturbances, and renal tubular function. pH may affect urinary stone formation. For example, urine pH below 6.0 may help reduce the tendency for calcium phosphate stones and pH greater than 6.0 may reduce the tendency for uric acid stone formation. Source: [facility] Current Interpretive Data was last revised on 2017 Protein, ur ql 1+(A) Negative [facility] Glucose, ur ql 3+(A) Negative [facility] Ketones, ur Negative Negative [facility] Bilirubin, ur Negative Negative [facility] Blood, ur Negative Negative [facility] Urobilinogen, ur <2.0 <2.0 mg/dL [facility] Nitrite, ur Negative Negative [facility] Leukocyte esterase, ur 4+(A) Negative [facility] UA reflex comment Reflex to microscopic UA will be performed. [facility] Urine 11/01/2024 7:23 PM CDT 11/01/2024 7:37 PM CDT us Tahmina Palencia MD LAB MICROBIOLOGY - GEN ERAL ORDERABLES Final Result Performing Organization Address [facility] [place]/ZIP Co de Phone Number [address] [place] [address] * (ABNORMAL) Urinalysis, microscopic only (11/01/2024 7:23 PM CDT) WBC, ur >50(A) 0 - 5 /HPF RBC, ur 0-2 0 - 2 /HPF [facility] Epithelial cells, squamous, ur 1-5 0 - 5 /HPF [facility] Culture Reflex Comment Reflex to urine culture will be performed. [facility] Urine 11/01/2024 7:23 PM CDT 11/01/2024 7:37 PM CDT us Tahmina Palencia MD LAB URINE ORDERABLES F inal Result [facility] [address] [facility] Department [place] [address] * (ABNORMAL) Urine culture Urine (11/01/2024 7:23 PM CDT) Report Final Report: Greater than or equal to 100,000 colonies/mL of Proteus mirabilis Plus growth of clinically insignificant bacterial shruti. (.) Comment:Testing performed by : [facility], [address] [facility], [place]., [address] Organism PROTEUS MIRABILIS [facility] Organism PLUS GROWTH OF CLINICALLY INSIGNIFICANT SHRUTI. [facility] Urine 11/01/2024 7:23 PM CDT 11/02/2024 12:58 AM CDT Narrative [facility] - 11/04/2024 10:48 AM CDT Urine culture reflexed based upon urinalysis results. Testing performed by [facility] Micro[facility] ([phone]) Organism Antibiotic Method Susceptibility Proteus mirabilis Ampicillin [...] - GEN ERAL ORDERABLES Final Result NILSA [address] [facility] Department [place] [address] * CT Chest Abdomen Pelvis W Contrast [...] Salvador Bronson M.D. KT T: Report ID: [id number] Reading Location: [id number] Procedure Note Salvador Bronson MD - 11/01/2024 [...] Salvador Bronson M.D. KT T: Report ID: [id number] Reading Location: [place] [address] Tahmina Palencia MD IM CT PROCEDURES Blessing [...] and well aerated. ORBITS: No acute abnormality. [place] ocular lenses replaced bilaterally. OTHER: No other significant abnormality. INTRACRANIAL VESSELS [place] OF [place]IM: The anterior, middle, posterior cerebral [...] signed by Redd ARMAS T: Report ID: [id number] Reading Location: [id number] Procedure Note Redd Hendrickson MD - 11/01/2024 [...] and well aerated. ORBITS: No acute abnormality. [place] ocular lenses replaced bilaterally. OTHER: No other significant abnormality. INTRACRANIAL VESSELS [place] OF [place]IM: The anterior, middle, posterior cerebral [...] Redd Hendrickson M.D. CHANDA T: Report ID: [id number] Reading Location: [place] [address] Tahmina Palencia MD IMG CT PROCEDURES Blessing [...] BLOOD ORDERABLES F inal Result NILSA RODRIGES [address] [facility] Department [place] [address] * CT Head WO Contrast (11/01/2024 2:37 [...] Shayne Landaverde M.D. AM T: Report ID: [id number] Reading Location: [id number] Procedure Note Shayne Landaverde MD - 11/01/2024 [...] Shayne Landaverde M.D. AM T: Report ID: [id number] Reading Location: [id number] Brittney CUEVA IMG CT PROCEDURES Final Re [...] James Javier M.D. MZ T: Report ID: [id number] Reading Location: [id number] Procedure Note James Javier MD - 11/01/2024 [...] James Javier M.D. MZ T: Report ID: [id number] Reading Location: [place] [address] us Tahmina Palencia MD IMG XR PROCEDURES Blessing l Result * (ABNORMAL) Troponin T high-sensitivity series (baseline, 2hr, 4hr, 6hr) (11/01/2024 2:03 PM CDT) Pathologist [facility] Trop T hs 57(H) <=14 ng/L Comment: Interpretive Data For further hscTnT resources including the diagnostic algorithm and an aid in interpretation, copy and paste this link: [email or web address].testcatalog.org/[email or web address] Current Interpretive Data last revised 2020. Blood 11/01/2024 2:03 PM CDT 11/01/2024 2:05 PM CDT us Tahmina Palencia MD LAB BLOOD ORDERABLES F inal Result [facility] [address] [facility] Department [place] [address] * (ABNORMAL) eGFR (11/01/2024 2:03 PM CDT) [...] MD LAB BLOOD ORDERABLES F inal Result [place] [address] [facility] Department [place] [address] * (ABNORMAL) Differential, auto (11/01/2024 2:03 PM CDT) Neutrophil abs 7.67(H) 1.50 - 6.50 K/cumm Imm gran abs 0.05 0.00 - 0.10 K/cumm [facility] Lymphocyte abs 1.67 0.80 - 3.30 K/cumm [facility] Monocyte abs 0.43 0.20 - 0.80 K/cumm [facility] Eosinophil abs 0.11 0.00 - 0.50 K/cumm [facility] Basophil abs 0.02 0.00 - 0.10 K/cumm [facility] Neutrophil pct 77.1 % [facility] Comment: Interpretive Data Percent cell count reference ranges are not reported, since discordance with absolute values may lead to misinterpretation of CBC data. Current Interpretive Data was last revised on 2017. Imm gran pct 0.5 % [facility] Comment: Interpretive Data Percent cell count reference ranges are not reported, since discordance with absolute values may lead to misinterpretation of CBC data. Current Interpretive Data was last revised on 2017. Lymphocyte pct 16.8 % [facility] Comment: Interpretive Data Percent cell count reference ranges are not reported, since discordance with absolute values may lead to misinterpretation of CBC data. Current Interpretive Data was last revised on 2017. Monocyte pct 4.3 % [facility] Comment: Interpretive Data Percent cell count reference ranges are not reported, since discordance with absolute values may lead to misinterpretation of CBC data. Current Interpretive Data was last revised on 2017. Eosinophil pct 1.1 % [facility] Comment: Interpretive Data Percent cell count reference ranges are not reported, since discordance with absolute values may lead to misinterpretation of CBC data. Current Interpretive Data was last revised on 2017. Basophil pct 0.2 % [facility] Comment: Interpretive Data Percent cell count reference ranges are not reported, since discordance with absolute values may lead to misinterpretation of CBC data. Current Interpretive Data was last revised on 2017. Blood 11/01/2024 2:03 PM CDT 11/01/2024 2:05 PM CDT us Tahmina Palencia MD LAB BLOOD ORDERABLES F inal Result [facility] [address] [facility] Department [place] [address] * (ABNORMAL) Pro B-type natriuretic peptide (11/01/2024 [...] MD LAB BLOOD ORDERABLES F inal Result [place] [address] [facility] Department [place] [address] * (ABNORMAL) CBC with auto differential (11/01/2024 2:03 PM CDT) WBC 9.95(H) 3.80 - 9.90 K/cumm Hgb 8.8(L) 11.9 - 15.5 g/dL [facility] Hct 27.2(L) 35.6 - 45.5 % [facility] Plt 207 150 - 400 K/cumm [facility] MPV 10.6 9.1 - 12.3 fL [facility] RBC 2.66(L) 3.90 - 5.20 M/cumm [facility] MCV 102.3(H) 81.3 - 96.4 fL [facility] MCH 33.1 27.1 - 33.3 pg [facility] MCHC 32.4 32.3 - 35.7 g/dL [facility] RDW CV 13.4 11.1 - 14.9 % [facility] RDW SD 50.4(H) 35.7 - 48.1 fL [facility] NRBC abs 0.00 0.00 - 0.01 K/cumm [facility] Blood 11/01/2024 2:03 PM CDT 11/01/2024 2:05 PM CDT us Tahmina Palencia MD LAB BLOOD ORDERABLES F inal Result [facility] [address] [facility] Department [place] [address] * (ABNORMAL) Comprehensive metabolic panel (11/01/2024 2:03 PM CDT) Sodium 133(L) 135 - 145 mmol/L Potassium, pl 4.3 3.3 - 4.9 mmol/L [facility] Chloride 95(L) 97 - 110 mmol/L [facility] CO2 23 22 - 32 mmol/L [facility] Anion gap 15 2 - 15 mmol/L [facility] BUN 55(H) 6 - 25 mg/dL [facility] Creatinine 4.86(H) 0.60 - 1.10 mg/dL [facility] Glucose 290(H) 70 - 199 mg/dL [facility] Comment: Interpretive Data Fasting glucose [...] 2022. Calcium 9.2 8.5 - 10.3 mg/dL [facility] Bilirubin, total 0.2 0.1 - 1.2 mg/dL [facility] Protein, pl 7.0 6.5 - 8.5 g/dL [facility] Albumin 3.7 3.5 - 5.0 g/dL [facility] Alk phos 116 40 - 130 Units/L [facility] ALT 58(H) 7 - 45 Units/L [facility] AST 26 10 - 45 Units/L [facility] Blood 11/01/2024 2:03 PM CDT 11/01/2024 2:05 PM CDT us Tahmina Palencia MD LAB BLOOD ORDERABLES F inal Result Performing Organization Address [facility] [place]/ZIP Co de Phone Number [facility] [address] [facility] Department [place] [address] * ECG 12 lead (11/01/2024 1:59 PM CDT) Ventricular Rate EKG/Min 73 BPM [facility] Atrial Rate 73 BPM [facility] MN-Interval (MSEC) 146 ms [facility] QRS-Interval (MSEC) 58 ms [facility] QT-Interval (MSEC) 396 ms [facility] QTc 436 ms [facility] P [place] 47 degrees [facility] R [place] 2 degrees [facility] T [place] 66 degrees [facility] Diagnosis Normal sinus rhythm Normal ECG When compared with ECG of 12-JUL-2024 11:48, No significant change was found Confirmed by DIAMOND GUTIERREZ M.D. ([id number]) on 11/02/2024 11:07:33 PM [facility] 11/01/2024 1:59 PM CDT 11/02/2024 11:07 PM CDT us Tahmina Palencia MD ECG ORDERABLES Final Result Performing Organization Address [facility] [place] de Phone Number [facility] * (ABNORMAL) Urinalysis reflex to microscopic and culture Urine, clean voided (10/31/2024 9:47 AM CDT) Color, ur Mikayla Yellow Comment:Testing performed by : [address] [address] Clarity, ur Turbid(A) Clear NILSA Comment:Testing performed by : [address] [address] Specific gravity, ur 1.008 1.003 - 1.030 NILSA Comment:Testing performed by : [address] [address] pH, urine 8.0 NILSA Comment: Interpretive Data U rine pH is affected by diet, medications, systemic acid-base disturbances, and renal tubular function. pH may affect urinary stone formation. For example, urine pH below 6.0 may help reduce the tendency for calcium phosphate stones and pH greater than 6.0 may reduce the tendency for uric acid stone formation. Source: [facility] GSOUND Current Interpretive Data was last revised on 2017 Testing performed by: [facility], [address] [place] [address]., [address] Protein, ur ql 2+(A) Negative NILSA Comment:Testing performed by : [address], [place]., [address] Glucose, ur ql 3+(A) Negative NILSA Comment:Testing performed by : [address], [place]., [address] Ketones, ur Negative Negative NILSA Comment:Testing performed by : [address], [place]., [address] Bilirubin, ur Negative Negative NILSA Comment:Testing performed by : [address], [place]., [address] Blood, ur Trace(A) Negative NILSA Comment:Testing performed by : [address], [place]., [address] Urobilinogen, ur <2.0 <2.0 mg/dL NILSA Comment:Testing performed by : [address] [address] Nitrite, ur Negative Negative NILSA Comment:Testing performed by : [address] [address] Leukocyte esterase, ur 4+(A) Negative NILSA Comment:Testing performed by : [address] [address] UA reflex comment Reflex to microscopic UA will be performed. NILSA Comment:Testing performed by : [address], [place]., [address] Urine, clean voided 10/31/2024 9:47 AM CDT 10/31/2024 9:50 AM CDT us Cherelle Corcoran MD LAB MICROBIOLOGY - GENERAL ORDERABLES Final Result NILSA [facility] Department [place] [address] * (ABNORMAL) Urinalysis, microscopic only (10/31/2024 9:47 AM CDT) WBC, ur 6-10(A) 0 - 5 /HPF Comment:Testing performed by : [address] [address] RBC, ur 0-2 0 - 2 /HPF NILSA Comment:Testing performed by : [facility], [address] [place] [address]., [address] Bacteria, ur Trace(A) NILSA Comment:Testing performed by : [address] [address] Culture Reflex Comment Reflex conditions for urine culture (WBC >10) not met. NILSA Comment:Testing performed by : [address] [address] Urine, clean voided 10/31/2024 9:47 AM CDT 10/31/2024 9:50 AM CDT us Cherelle Corcoran MD LAB URINE ORDERAB LES Final Result Performing Organization Address [facility]/State/[facility] Co de Phone Number NILSA [facility] Department [place] [address] * XR Chest PA Lateral 2 Views [...] Edwardo Louis M.D. RW: ADAMARIS Report ID: [id number] Reading Location: [id number] Procedure Note Edwardo Louis MD - 10/24/2024 [...] Edwardo Louis M.D. RW: ADAMARIS Report ID: [id number] Reading Location: [id number] Cherelle Corcoran MD IMG XR PROCEDURES Final Result * CT CORONARY CALCIUM SCORING (10/17/2024 9:30 AM CDT) Anatomical Region Laterality Modality Chest Computed Tomogra phy Historical Provider IMG CT PROCEDURES Final R esult * Diabetic Eye Exam (07/27/2024 12:37 PM ANIMAL IMPERSONATOR) Historical Provider HEALTH MAINTENANCE Final Result * Colonoscopy (03/01/2024 8:49 AM CDT) Anatomical Region Laterality Modality Other Narrative Procedure Note Jaya Grier MD - 03/01/2024 8:49 AM CDT [facility] ENDOSCOPY Patient Name: Barbara Chakraborty Procedure [...] The scope was passed under direct vision.The [id number]-MD561X colonoscope was introduced through theanus and advanced [...] taking vitamin-D. History of end-stage renal disease. Environmental Sustainability Manager/Model: Lazarus Effect A (S/N [id number]) CLINICAL INFORMATION: Current height: 61 inches Maximum [...] Rafaela Paulino M.D. TW: TW Report ID: [id number] Reading Location: [id number] Procedure Note Rafaela Paulino MD - 01/22/2024 EXAM DESCRIPTION: DEXA AXIAL SKELETON BONE DENSITY 1 OR MORE SITES REASON FOR STUDY: 73 y/o year old F with given history of: Post menopausal status. History of taking vitamin-D. History of end-stagerenal disease. Environmental Sustainability Manager/Model: Hologic Horizon A (S/N [id number]) CLINICAL INFORMATION: Current height: 61 inches Maximum [...] Rafaela Paulino M.D. TW: TW Report ID: [id number] Reading Location: [id number] us Cherelle Corcoran MD IMDiaz DXA PROCEDURE [...] CDT Jimbo Strauss MD LAB [facility] Final Result NILSA [address] [facility] [place] [address] * (ABNORMAL) Albumin Creatinine Ratio, Urine (10/10/2022 11:39 AM CDT) Albumin Ur 3,240.2 mg/L NILSA Comment: Interpretive Data No reference range established. Current interpretive data was last revised 2018. Testing performed by: [address] [address] Creatinine Ur 74.8 mg/dL NILSA Comment: Interpretive Data No reference range established. Current interpretive data was last revised 2018. Testing performed by: [address] [address] Albumin Creatinine Ratio, Ur 4,332(H) 1 - 29 mg/g NLISA Comment:Testing performed by : [address] [address] Urine 10/10/2022 11:3 9 AM CDT 10/10/2022 1:45 PM CDT Markie Ryan MD LAB URINE ORDERABLES Final Re sult NILSA [address] [facility] Department of Laboratories [place], [place] [id number] from Last 3 Months or Most Recently Relevant to Health Maintenance
--- OUTSIDE RECORDS SUMMARY | 2024-12-26 13:04 | XMS_ITS | Referral Summary ---
Author Organization [facility] Address [address] [place] [address] Care Team Providers Care Business Trainer Name Role Phone Cherelle Corcoran MD Primary Care Pro vider Mark Queen MD Unavailable [phone] Rudolph Welch MD Unavailable Markie Ryan MD Unavailable [phone] Jimbo Strauss MD Unavailable [phone] Jaya Grier MD Unavailable Edgardo Kauffman MD Unavailable [phone] Encounters Date Type Department Care Team Description 12/26/2024 Nurse Triage [facility] Primary Care at [address] [place] [phone] Cherelle Corcoran MD 12/26/2024 8:40 AM CDT Office Visit [facility] Endocrinology Metabolism and Lipid [address] [facility] [address], [address] [place] [address] Smith Gibbs MD Type 2 diabetes mellitus with chronic kidney disease on chronic dialysis, with long-term current use of insulin (HCC) (Primary Dx); Primary hypertension; Mixed hyperlipidemia; Diabetic polyneuropathy associated with type 2 diabetes mellitus (HCC); Type 2 diabetes mellitus with diabetic neuropathy, with long-term current use of insulin (HCC) 11/29/2024 3:30 PM CDT Office Visit [facility] Primary Care at [address] [phone] Cherelle Corcoran MD Multiple falls (Primary Dx); Hypertension associated with diabetes (HCC); Type 2 diabetes mellitus with diabetic neuropathy, with long-term current use of insulin (HCC); Chronic diastolic congestive heart failure (HCC); Acute pain of left shoulder 11/28/2024 Telephone [facility] Primary Care at [address] [phone] Cherelle Corcoran MD 11/25/2024 Orders Only [facility] [phone] Unknown, Notinfile 11/24/2024 Telephone [facility] Primary Care at [address] [phone] Cherelle Corcoran MD JOY Questions 11/21/2024 Orders Only [facility] [phone] Unknown, Notinfile 11/15/2024 Orders Only [facility] [phone] Unknown, Notinfile 11/14/2024 Orders Only [facility] [phone] Unknown, Notinfile 11/13/2024 Orders Only [facility] [phone] Unknown, Notinfile 11/07/2024 Telephone [facility] Nephrology at [address] [phone] Markie Ryan MD 11/07/2024 Telephone [facility] Primary Care at [address] [phone] Cherelle Corcoran MD Additional Services Or Orders 11/07/2024 Telephone [facility] Primary Care at [address] [phone] Cherelle Corcoran MD 11/07/2024 Telephone [facility] Primary Care at [address] [phone] Cherelle Corcoran MD Appointment Request 11/01/2024 3:17 PM CDT - 11/05/2024 1:00 PM CDT Hospital Encounter [address] [address] PrograiTahmina brothers MD Medavaram, Atul, MD Al Furgani, Mahmud Mustafa, MD Hypertensive urgency (Primary Dx); Acute cystitis without hematuria; Generalized weakness; Peripheral vertigo, unspecified laterality; Lightheadedness; ESRD on hemodialysis (HCC); Anemia of renal disease; Hyponatremia Discharge Disposition: Discharge to home, home health skilled care 11/01/2024 Nurse Triage [facility] Primary Care at [address] [phone] Cherelle Corcoran MD 10/31/2024 Results Follow-Up [facility] Primary Care at [address] [phone] Cherelle Corcoran MD Urinalysis reflex to microscopic and culture Urine, clean voided, Urinalysis, microscopic only 10/31/2024 8:53 AM CDT - 10/31/2024 11:59 PM CDT Hospital Encounter [facility] [address] [place] [address] UTI symptoms Discharge Disposition: Discharge to home or self care 10/25/2024 Results Follow-Up [facility] Primary Care at [address] [phone] Cherelle Corcoran MD XR Chest PA Lateral 2 Views 10/24/2024 11:45 AM CDT - 10/24/2024 11:59 PM CDT Hospital Encounter [facility] MOB 1 DIAG IMG [address] [place] [address] SOB (shortness of breath) Discharge Disposition: Discharge to home or self care 10/24/2024 11:35 AM CDT Lab [facility] [address] [place] [address] 10/24/2024 10:30 AM CDT Office Visit [facility] Primary Care at [address] [place] [phone] Cherelle Corcoran MD Encounter for Medicare annual [...] behavioral disturbance (HCC); Parkinsonism, unspecified Parkinsonism type ([facility]); Schizoaffective disorder, bipolar type (HCC); Chronic diastolic congestive heart failure (HCC); Gastroesophageal reflux disease without esophagitis 10/18/2024 Orders Only [facility] Nephrology at [address] [place] [phone] Joe Ballard MD 10/03/2024 Telephone [facility] Endocrinology Metabolism and Lipid [address] [facility] [address], [address] [place] [address] Yoly Herrera RN Insulin dosing 10/03/2024 Telephone [facility] Primary Care at [address] [place] [address] Cherelle Corcoran MD Medical Question/Miscellaneous from Last 3 Months Allergies No known active allergies Medications FreeStyle Madhav 3 [place] [facility] [place] Use Madhav 3 reader to scan Madhav 3 sensor 04/05/ 2024 Active pen needle, diabetic (Easy Touch) 32 gauge x 5/32 needleIndication s:Type 2 diabetes mellitus with diabetic neuropathy, with long-term current use of insulin ([facility]) USE DIRECTED FOUR TIMES DAILY [...] nephropathy, with long-term current use of insulin ([facility]) Use to continually monitor glucose, [...] nephropathy, with long-term current use of insulin ([facility]) Inject 4 units SQ before [...] DAILY 90 tablet 1 2024 Active lidocain-me.sali pkt-nypg-qmebd 4-20-0.025-5 % adhesive patch,medicated Apply 1 patch topically 2024 Active blood glucose diagnostic (Easy Touch Test Strip) stripIndications :Type 2 diabetes mellitus with chronic kidney disease on chronic dialysis, with long-term current use of insulin ([facility]) 1 each by other route [...] long-term current use of insulin ([facility]) 1 each by other route [...] restarting Assessment & Plan (07/14/2024 2:30 PM LIABILITY CLAIMS EXAMINER): Continue Lipitor Assessment & Plan (07/14/2024 8:56 AM LIABILITY CLAIMS EXAMINER): Ok to restart atorvastatin, but also given [...] nephrology Assessment & Plan (07/14/2024 2:39 PM LIABILITY CLAIMS EXAMINER): Patient is needing a Perma catheter exchange [...] proceed. Assessment & Plan (07/14/2024 8:51 AM LIABILITY CLAIMS EXAMINER): Following with nephrology Assessment & Plan (01/06/2024 [...] 10/30/2023 Assessment & Plan (05/06/2024 7:49 AM LIABILITY CLAIMS EXAMINER): Reviewed hospital discharge summary Now resolved Upcoming [...] stable Assessment & Plan (07/24/2023 1:51 PM LIABILITY CLAIMS EXAMINER): Chronic/stable Parkinsonism 08/14/2022 Assessment & Plan (10/24/2024 10:57 AM CDT): Following with neurology Assessment & Plan (07/14/2024 8:54 AM LIABILITY CLAIMS EXAMINER): Following with neurology, recommend reaching out to them in regards to restarting benztropine. Consider waiting until after restarts other medications given daughter reports tremors controlled off benztropine currently Assessment & Plan (11/10/2023 4:43 PM CDT): Following with neurology On cogentin Assessment & Plan (07/24/2023 1:50 PM LIABILITY CLAIMS EXAMINER): Following with neurology On cogentin twice a day Assessment & Plan (01/23/2023 9:20 AM CDT): Following with neurology On cogentin twice a day Assessment & Plan (10/10/2022 10:41 AM CDT): Following with neurology On cogentin Assessment & Plan (08/14/2022 10:46 AM LIABILITY CLAIMS EXAMINER): Following with neurology, reviewed note On cogentin [...] a walker. - PT/OT recommends SNF. -Plan [facility] on 11/26 ? Assessment & Plan (11/24/2021 2:07 PM CDT): Deconditioning 2/2 prolonged hospitalization. Daughter reports that prior to her illness, she was independent with a walker. - PT/OT recommends SNF. -Plan [facility] on 11/25. Assessment & Plan (11/23/2021 12:24 PM CDT): Deconditioning 2/2 prolonged hospitalization. Daughter reports that prior to her illness, she was independent with a walker. - PT/OT recommends SNF. -Plan [facility] on 11/25. Assessment & Plan (11/22/2021 1:34 PM CDT): Deconditioning 2/2 prolonged hospitalization. Daughter reports that prior to her illness, she was independent with a walker. - PT/OT recommends SNF. -Plan Agueda [facility] on 11/25. Assessment & Plan (11/21/2021 [...] care Assessment & Plan (08/14/2022 10:47 AM LIABILITY CLAIMS EXAMINER): Following with podiatry Assessment & Plan (04/02/2022 [...] - renal consulted regarding volume management, possible senior care dialysis planning, expedite OP f/u. Serologies and urine studies ordered. ED neg, compliments neg, cryoglobulin pending, ANCA pending, HIV neg. Continued -Added metolazone 2.5mg/daily per renal 09/13- with improving swelling, Cr bump to 2.33 so held further -Transitioned to PO agents prior to DC (09/17) with ongoing clinical improvement. 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 -outpatient [...] - renal consulted regarding volume management, possible senior care dialysis planning, expedite OP f/u. Serologies and urine studies ordered. ED neg, compliments neg, cryoglobulin pending, ANCA pending, HIV neg. Continued -Added metolazone 2.5mg/daily per renal 09/13- with improving swelling, Cr bump to 2.33 so held further -Anticipate likely transition to PO agents prior to DC (?09/17) with ongoing clinical improvement. Goal weight 155lbs -Home [place], field pipe lines supervisor consulted to review salt restrictions. Assessment [...] - renal consulted regarding volume management, possible orthodontic technician dialysis planning, expedite OP f/u. Serologies and urine studies ordered. -Added metolazone 2.5mg/daily per renal. -Anticipate likely transition to PO agents prior to DC with ongoing clinical improvement. Goal weight 145-150lbs -Home [place] family [place], field pipe lines supervisor consulted to review salt restrictions. Assessment [...] - renal consulted regarding volume management, possible orthodontic technician dialysis planning, expedite OP f/u. Serologies and [...] - renal consulted regarding volume management, possible senior care dialysis planning, expedite OP f/u. Serologies and [...] - renal consulted regarding volume management, possible senior care dialysis planning, expedite OP f/u. Assessment & [...] net neg 1/2-1L/day. -consider renal consult regarding senior care dialysis planning, expedite OP f/u. Assessment & [...] net neg 1/2-1L/day. -consider renal consult regarding senior care dialysis planning. Assessment & Plan (09/06/2021 10:28 [...] neurology Assessment & Plan (07/14/2024 8:53 AM LIABILITY CLAIMS EXAMINER): Following with neurology Assessment & Plan (01/05/2024 10:40 PM CDT): Follows with neurology. -continue risperidone 2mg QHS -continue benztropine 2mg daily Assessment & Plan (11/10/2023 4:37 PM CDT): Following with neurology Assessment & Plan (07/24/2023 1:50 PM LIABILITY CLAIMS EXAMINER): Following with neurology Assessment & Plan (01/23/2023 9:18 AM CDT): Following with neurology Assessment & Plan (10/10/2022 10:37 AM CDT): Following with neurology, ordered MRI, # given to son to schedule Assessment & Plan (06/09/2022 3:37 PM LIABILITY CLAIMS EXAMINER): Needs to reschedule with neurology Looking into jail, but declined for [facility] for schizoaffective disorder Assessment & [...] needed Assessment & Plan (06/09/2022 3:37 PM LIABILITY CLAIMS EXAMINER): Reviewed PM & PHQ Screening PHQ-2 Total [...] psychiatry Assessment & Plan (08/18/2024 8:44 AM LIABILITY CLAIMS EXAMINER): Chronic, stable. Does not report any stephanie [...] discussed. Assessment & Plan (07/14/2024 8:54 AM LIABILITY CLAIMS EXAMINER): Following with psychiatry, recommend reaching out to [...] psychiatry Assessment & Plan (07/24/2023 1:50 PM LIABILITY CLAIMS EXAMINER): Following with psychiatry Assessment & Plan (01/23/2023 [...] discussed. Assessment & Plan (08/09/2021 5:42 AM LIABILITY CLAIMS EXAMINER): Following with psychiatry Assessment & Plan (08/07/2021 3:28 PM LIABILITY CLAIMS EXAMINER): Chronic condition, switch to Haldol and has had multiple different problems including acute kidney failure in infectious process. Records not available at outside hospital-[facility]. Confounded by delirium. Currently experiencing delirium will discontinue Haldol and return to Risperdal as previously taking. Risperdal was discontinued due to poorly-controlled diabetes. Monitor in 1 to 2 weeks. Assessment & Plan (07/03/2021 7:24 AM LIABILITY CLAIMS EXAMINER): Following with psychiatry D/c risperidone, started on haldol Assessment & Plan (07/01/2021 9:16 PM LIABILITY CLAIMS EXAMINER): Chronic, stable. 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 The patient previously lived on her own and was observed to be hoarding. See additional problems-dementia. Evaluate again in 1 month after starting Risperdal. Iron deficiency anemia 04/02/2020 Assessment & Plan (05/06/2024 7:51 AM LIABILITY CLAIMS EXAMINER): Recommend discussing IV iron with nephrology Assessment & Plan (10/02/2020 4:35 PM CDT): Continue iron Assessment & Plan (05/28/2020 1:51 PM LIABILITY CLAIMS EXAMINER): Iron levels recently normalized, but still anemic, repeat today Assessment & Plan (04/16/2020 11:45 AM CDT): Recent iron within normal limits, H/H improving, continue supplementation until normalized Gastroesophageal reflux disease without esophagi tis 04/02/2020 Assessment & Plan (10/24/2024 10:57 AM CDT): continue protonix Following with GI Assessment & Plan (07/14/2024 8:56 AM LIABILITY CLAIMS EXAMINER): Restart protonix Upcoming EGD Assessment & Plan (01/05/2024 10:40 PM CDT): -continue famotidine Assessment & Plan (10/02/2020 4:35 PM CDT): Continue omeprazole Assessment & Plan (07/24/2020 2:06 PM LIABILITY CLAIMS EXAMINER): Recurrent symptoms off omeprazole, restart Assessment & Plan (05/28/2020 1:51 PM LIABILITY CLAIMS EXAMINER): Iron levels recently normalized, but still anemic, repeat today Assessment & Plan (04/02/2020 1:26 PM CDT): Start PPI History of amputation of toe 01/19/2020 Assessment & Plan (01/08/2021 3:50 PM CDT): Stable Assessment & Plan (10/02/2020 4:35 PM CDT): Stable Assessment & Plan (04/30/2020 1:00 PM LIABILITY CLAIMS EXAMINER): Stable Assessment & Plan (02/14/2020 5:15 PM [...] controlled Assessment & Plan (07/14/2024 2:32 PM LIABILITY CLAIMS EXAMINER): Continue carvedilol, hydralazine Assessment & Plan (07/14/2024 8:51 AM LIABILITY CLAIMS EXAMINER): BP controlled today off medication Daughter reports nephrology said could restart medication, is planning to restart coreg first and monitor blood pressure prior to restarting nifedipine/hydralazine Assessment & Plan (05/06/2024 7:48 AM LIABILITY CLAIMS EXAMINER): BP controlled Continue nifedipine, hold prior to [...] HD. Most recent admission at [facility] with initiation of hydralazine and [...] amlodipine Assessment & Plan (08/03/2023 4:02 PM LIABILITY CLAIMS EXAMINER): BP uncontrolled Start 5mg amlodipine Assessment & Plan (07/24/2023 1:49 PM LIABILITY CLAIMS EXAMINER): Blood pressure borderline today off medications Assessment & Plan (01/23/2023 9:18 AM CDT): Blood pressure borderline low today, asymptomatic Checking labs Advised to decrease amlodipine to 5mg and monitor blood pressure Assessment & Plan (10/10/2022 10:50 AM CDT): Continue coreg 6.25mg twice a day & 40mg valsartan Assessment & Plan (08/14/2022 10:43 AM LIABILITY CLAIMS EXAMINER): Blood pressure at goal, continue coreg 6.25mg twice a day Assessment & Plan (06/09/2022 3:32 PM LIABILITY CLAIMS EXAMINER): Blood pressure at goal, continue coreg 3.125mg [...] day Assessment & Plan (08/05/2021 10:35 AM LIABILITY CLAIMS EXAMINER): Blood pressure at goal Increase amlodipine to 10mg & d/c hydralazine per cardiology Assessment & Plan (05/28/2021 4:59 PM LIABILITY CLAIMS EXAMINER): Blood pressure above goal, but previously within [...] lisinopril Assessment & Plan (08/28/2020 12:12 PM LIABILITY CLAIMS EXAMINER): Blood pressure at goal Continue lisinopril Assessment & Plan (07/24/2020 2:05 PM LIABILITY CLAIMS EXAMINER): Blood pressure at goal Continue lisinopril Assessment & Plan (05/28/2020 1:50 PM LIABILITY CLAIMS EXAMINER): BP borderline Continue 10mg lisinopril Continue to monitor Assessment & Plan (04/30/2020 12:32 PM LIABILITY CLAIMS EXAMINER): BP borderline Continue 10mg lisinopril Continue to [...] endocrine Assessment & Plan (07/14/2024 2:31 PM LIABILITY CLAIMS EXAMINER): Controlled. Continue as per Endocrine and PCP Assessment & Plan (07/14/2024 8:50 AM LIABILITY CLAIMS EXAMINER): Following with endocrine, reviewed note Holding insulin [...] +SSI Assessment & Plan (07/24/2023 1:49 PM LIABILITY CLAIMS EXAMINER): Lab Results Component Value Date HGBA1C 8.1 [...] trulicity Assessment & Plan (08/14/2022 10:42 AM LIABILITY CLAIMS EXAMINER): Following with endocrine Continue lantus, 12 units humalog TIDAC & 1.5mg trulicity Assessment & Plan (06/09/2022 3:32 PM LIABILITY CLAIMS EXAMINER): Following with endocrine Home blood sugar at [...] for strict med oversight by [place] reviewed with daughter this admit. Assessment & [...] for strict med oversight by family [place] reviewed with daughter this admit. Assessment & [...] and nephropathy. Med oversight by family at [place]. Assessment & Plan (09/14/2021 12:22 PM CDT): [...] as she had discussed this with outpatient seamer panty hose - repeat A1c - resume home statin, not currently on feliciano due to kidney function Assessment & Plan (08/05/2021 10:35 AM LIABILITY CLAIMS EXAMINER): Continue 15 units lantus twice a day Assessment & Plan (07/03/2021 7:24 AM LIABILITY CLAIMS EXAMINER): Fasting blood sugar significantly improved Risperidone changed Continue current meds Continue to monitor Assessment & Plan (06/18/2021 11:22 AM LIABILITY CLAIMS EXAMINER): Increase lantus to 60 units nightly, if blood sugar still above goal after 1 week split into 33 units twice a day Follow up with blood sugar via portal in 2 weeks Continue jardiance 25mg Continue trulicity 4.5mg weekly Assessment & Plan (05/28/2021 4:58 PM LIABILITY CLAIMS EXAMINER): Increase lantus to 55 units nightly Continue [...] weekly Assessment & Plan (08/28/2020 1:00 PM LIABILITY CLAIMS EXAMINER): DM Care Plan: Meds: Lantus - continue [...] recheck Assessment & Plan (07/24/2020 2:05 PM LIABILITY CLAIMS EXAMINER): Formulary change 2/2 insurance, switched to trulicity. Will increase to 1.5mg Assessment & Plan (05/28/2020 1:50 PM LIABILITY CLAIMS EXAMINER): Check a1c Barbara isn't checking blood sugar regularly, but when she is she has several >200 so I lean towards increasing if a1c>7 Assessment & Plan (04/30/2020 12:31 PM LIABILITY CLAIMS EXAMINER): Blood sugar improved on 40 units basaglar [...] was in the room. Recently treated at [facility] for PNA with prolonged course of [...] was in the room. Recently treated at [facility] for PNA with prolonged course of [...] was in the room. Recently treated at [facility] for PNA with prolonged course of [...] was in the room. Recently treated at [facility] for PNA with prolonged course of [...] was in the room. Recently treated at [facility] for PNA with prolonged course of [...] was in the room. Recently treated at [facility] for PNA with prolonged course of [...] was in the room. Recently treated at [facility] for PNA with prolonged course of [...] was in the room. Recently treated at [facility] for PNA with prolonged course of [...] was in the room. Recently treated at [facility] for PNA with prolonged course of [...] was in the room. Recently treated at [facility] for PNA with prolonged course of [...] 11/10/2023 Assessment & Plan (08/14/2022 10:44 AM LIABILITY CLAIMS EXAMINER): Continue eliquis Assessment & Plan (06/09/2022 3:36 PM LIABILITY CLAIMS EXAMINER): Continue eliquis Assessment & Plan (04/02/2022 6:05 [...] 10/10/2022 Assessment & Plan (08/07/2021 3:30 PM LIABILITY CLAIMS EXAMINER): Subacute, persistent, hospitalized recently. She is alert [...] Impression: Patient recently had MRI performed at [facility] which revealed acute osteomyelitis to the [...] 08/28/2020 Assessment & Plan (05/28/2020 1:52 PM LIABILITY CLAIMS EXAMINER): Encouraged to follow up with wound clinic for reassessment Assessment & Plan (04/30/2020 12:31 PM LIABILITY CLAIMS EXAMINER): Following with wound clinic Assessment & Plan [...] acute osteomyelitis on recent MRI performed at [facility]. She is being treated with antibiotic therapy [...] nightly Assessment & Plan (08/14/2022 10:42 AM LIABILITY CLAIMS EXAMINER): Continue lyrica 150mg nightly Assessment & Plan (06/09/2022 3:32 PM LIABILITY CLAIMS EXAMINER): Continue lyrica 150mg nightly Assessment & Plan [...] status. Assessment & Plan (05/28/2021 4:58 PM LIABILITY CLAIMS EXAMINER): Continue lyrica 150mg nightly Assessment & Plan [...] gabapentin Assessment & Plan (08/28/2020 1:00 PM LIABILITY CLAIMS EXAMINER): On gabapentin Assessment & Plan (07/24/2020 2:05 PM LIABILITY CLAIMS EXAMINER): Continue gabapentin Assessment & Plan (04/02/2020 1:22 [...] from doctor or pharmacy Often 01/20/2024 [facility] Utilities Answer Date Recorded In the past 12 months has [employer], gas, oil, or water [employer] threatened to shut off services in your [...] you attend chur ch or zoroastrian services? Patient unable to answer 11/07/2024 Do [...] a long term (including now)? No 10/30/2023 PHQ-9 Answer Date [...] time in the past 12 [facility], were you homeless or living in a long term (including now)? No 11/07/2024 Personal Safety Answer Date Recorded Have you ever been in or are you currently in a harmful physical or emotional relationship or is someone making you feel afraid or unsafe? Denies 11/01/2024 Comments No Sex and Gender Information Value Date Recorded Sex Assigned at Not on file Legal Sex Female 9:03 AM LIABILITY CLAIMS EXAMINER Gender Identity Female 02/08/2020 6:39 PM [...] blood loss Medical Devices Implanted Type Area Shake Cutter Device Identifier Shelf Expiration Date Model / Serial / Lot [employer] Duramax Vascpak Safesheath D-Pro 15.5fr 24cm Kit Catheter [id number] - [id number] Implanted:Qty: 1 on 10/15/2023 at [facility] [employer] 10/19/2025 [id number] / / [id number] [facility] [employer] Duraflow Embosafe 15.5fr 24cm Basic 2 Lumen Kit Catheter [id number] - [id number] Implanted:Qty: 1 on 07/15/2024 by Edgardo Kauffman MD at [facility] [employer] 08/19/2026 [id number] / / [id number] Procedures Procedure Name Priority Date/Time Associated Diagnosis [...] EYE EXAM Routine 07/27/2024 12: 37 PM LIABILITY CLAIMS EXAMINER COLONOSCOPY 03/01/2024 8:49 AM CDT DEXA AXIAL [...] was last reviewed 2021. Testing performed by: [address] [id number] Blood 11/25/2024 12:5 8 PM CDT 11/25/2024 2:12 PM CDT us Notinfile Unknown LAB BLOOD ORDERABLES Final Res ult NIL[facility] [address] [facility] Department [place] [address] * (ABNORMAL) Differential, auto (11/25/2024 12:58 PM CDT) Neutrophil abs 6.51(H) 1.50 - 6.50 K/cumm NILSA Comment:Testing performed by : [address] [address] Imm gran abs 0.05 0.00 - 0.10 K/cumm NILSA Comment:Testing performed by : [address] [address] Lymphocyte abs 2.37 0.80 - 3.30 K/cumm NILSA Comment:Testing performed by : [address] [address] Monocyte abs 0.70 0.20 - 0.80 K/cumm NILSA Comment:Testing performed by : [address] [address] Eosinophil abs 0.16 0.00 - 0.50 K/cumm NILSA Comment:Testing performed by : [address] [address] Basophil abs 0.04 0.00 - 0.10 K/cumm NILSA Comment:Testing performed by : [address] [address] Neutrophil pct 66.3 % NILSA Comment: Interpretive Data Percent cell count reference ranges are not reported, since discordance with absolute values may lead to misinterpretation of CBC data. Current Interpretive Data was last revised on 2017. Testing performed by: [address] [address] Imm gran pct 0.5 % [facility] Comment: Interpretive Data Percent cell count reference ranges are not reported, since discordance with absolute values may lead to misinterpretation of CBC data. Current Interpretive Data was last revised on 2017. Testing performed by: [address] [address] Lymphocyte pct 24.1 % [facility] Comment: Interpretive Data Percent cell count reference ranges are not reported, since discordance with absolute values may lead to misinterpretation of CBC data. Current Interpretive Data was last revised on 2017. Testing performed by: [address] [address] Monocyte pct 7.1 % [facility] Comment: Interpretive Data Percent cell count reference ranges are not reported, since discordance with absolute values may lead to misinterpretation of CBC data. Current Interpretive Data was last revised on 2017. Testing performed by: [address] [address] Eosinophil pct 1.6 % [facility] Comment: Interpretive Data Percent cell count reference ranges are not reported, since discordance with absolute values may lead to misinterpretation of CBC data. Current Interpretive Data was last revised on 2017. Testing performed by: [address] [address] Basophil pct 0.4 % [facility] Comment: Interpretive Data Percent cell count reference ranges are not reported, since discordance with absolute values may lead to misinterpretation of CBC data. Current Interpretive Data was last revised on 2017. Testing performed by: [address] [address] Blood 11/25/2024 12:5 8 PM CDT 11/25/2024 2:12 PM CDT us Notinfile Unknown LAB BLOOD ORDERABLES Final Res ult NILSA [address] [facility] Department [place] [address] * (ABNORMAL) CBC with auto differential (11/25/2024 12:58 PM CDT) WBC 9.83 3.80 - 9.90 K/cumm NILSA Comment:Testing performed by : [address] [address] Hgb 9.9(L) 11.9 - 15.5 g/dL NILSA Comment:Testing performed by : [address] [address] Hct 31.1(L) 35.6 - 45.5 % NILSA Comment:Testing performed by : [address] [address] Plt 351 150 - 400 K/cumm NILSA Comment:Testing performed by : [address] [address] MPV 10.0 9.1 - 12.3 fL NILSA Comment:Testing performed by : [address] [address] RBC 3.07(L) 3.90 - 5.20 M/cumm NILSA Comment:Testing performed by : [address] [address] MCV 101.3(H) 81.3 - 96.4 fL NILSA Comment:Testing performed by : [address] [address] MCH 32.2 27.1 - 33.3 pg NILSA Comment:Testing performed by : [address] [address] MCHC 31.8(L) 32.3 - 35.7 g/dL NILSA Comment:Testing performed by : [address] [address] RDW CV 15.7(H) 11.1 - 14.9 % NILSA Comment:Testing performed by : [address] [address] RDW SD 56.9(H) 35.7 - 48.1 fL NILSA RODRIGES Comment:Testing performed by : [address] [address] NRBC abs 0.02(H) 0.00 - 0.01 K/cumm NILSA RODRIGES Comment:Testing performed by : [address] [address] Blood 11/25/2024 12:5 8 PM CDT 11/25/2024 2:12 PM CDT us Notinfile Unknown LAB BLOOD ORDERABLES Final Res ult NILSA [address] [facility] Department of Laboratories [place], [place] [id number] * (ABNORMAL) Comprehensive metabolic panel (11/25/2024 12:58 PM CDT) Sodium 133(L) 135 - 145 mmol/L NILSA Comment:Testing performed by : [address] [address] Potassium, pl 4.4 3.3 - 4.9 mmol/L NILSA Comment:Testing performed by : [address] [address] Chloride 94(L) 97 - 110 mmol/L NILSA Comment:Testing performed by : [address] [address] CO2 23 22 - 32 mmol/L NILSA Comment:Testing performed by : [address] [address] Anion gap 16(H) 2 - 15 mmol/L INLSA Comment:Testing performed by : [address] [address] BUN 53(H) 6 - 25 mg/dL NILSA Comment:Testing performed by : [address] [address] Creatinine 5.90(H) 0.60 - 1.10 mg/dL NILSA Comment:Testing performed by : [address], [address] Glucose 139 70 - 199 mg/dL NILSA [...] was last revised 2022. Testing performed by: [address] [address] Calcium 9.4 8.5 - 10.3 mg/dL NILSA Comment:Testing performed by : [address] [address] Bilirubin, total <0.2 0.1 - 1.2 mg/dL NILSA Comment:Testing performed by : [address] [address] Protein, pl 7.5 6.5 - 8.5 g/dL NILSA Comment:Testing performed by : [address] [address] Albumin 4.0 3.5 - 5.0 g/dL NILSA Comment:Testing performed by : [address] [address] Alk phos 108 40 - 130 Units/L NILSA Comment:Testing performed by : [address] [address] ALT 9 7 - 45 Units/L NILSA Comment:Testing performed by : [address] [address] AST 11 10 - 45 Units/L NILSA Comment:Testing performed by : [address] [address] Blood 11/25/2024 12:5 8 PM CDT 11/25/2024 2:12 PM CDT us Notinfile Unknown LAB BLOOD ORDERABLES Final Res ult Performing Organization Address [facility] de Phone Number [facility] [address] [facility] [place] [place] [address] * (ABNORMAL) eGFR (11/21/2024 4:15 AM CDT) [...] was last reviewed 2021. Testing performed by: [address] [address] Blood 11/21/2024 4:15 AM CDT 11/21/2024 7:54 AM CDT us Notinfile Unknown LAB BLOOD ORDERABLES Final Res ult Performing Organization Address [facility] Co de Phone Number [facility] [address] [facility] [place] [address] * Differential, auto (11/21/2024 4:15 AM CDT) Neutrophil abs 6.24 1.50 - 6.50 K/cumm NILSA Comment:Testing performed by : [address] [address] Imm gran abs 0.06 0.00 - 0.10 K/cumm NILSA Comment:Testing performed by : [address], [place]., [address] Lymphocyte abs 2.12 0.80 - 3.30 K/cumm NILSA Comment:Testing performed by : [address], [place]., [address] Monocyte abs 0.70 0.20 - 0.80 K/cumm NILSA Comment:Testing performed by : [address], [place]., [address] Eosinophil abs 0.13 0.00 - 0.50 K/cumm NILSA Comment:Testing performed by : [address], [place]., [address] Basophil abs 0.04 0.00 - 0.10 K/cumm NILSA Comment:Testing performed by : [address] [address] Neutrophil pct 67.3 % CERELLEN Comment: Interpretive Data Percent cell count reference ranges are not reported, since discordance with absolute values may lead to misinterpretation of CBC data. Current Interpretive Data was last revised on 2017. Testing performed by: [address] [address] Imm gran pct 0.6 % [facility] Comment: Interpretive Data Percent cell count reference ranges are not reported, since discordance with absolute values may lead to misinterpretation of CBC data. Current Interpretive Data was last revised on 2017. Testing performed by: [address] [address] Lymphocyte pct 22.8 % [facility] Comment: Interpretive Data Percent cell count reference ranges are not reported, since discordance with absolute values may lead to misinterpretation of CBC data. Current Interpretive Data was last revised on 2017. Testing performed by: [address] [address] Monocyte pct 7.5 % [facility] Comment: Interpretive Data Percent cell count reference ranges are not reported, since discordance with absolute values may lead to misinterpretation of CBC data. Current Interpretive Data was last revised on 2017. Testing performed by: [address] [address] Eosinophil pct 1.4 % NILSA RODRIGES Comment: Interpretive Data Percent cell count reference ranges are not reported, since discordance with absolute values may lead to misinterpretation of CBC data. Current Interpretive Data was last revised on 2017. Testing performed by: [address] [address] Basophil pct 0.4 % NILSA Comment: Interpretive Data Percent cell count reference ranges are not reported, since discordance with absolute values may lead to misinterpretation of CBC data. Current Interpretive Data was last revised on 2017. Testing performed by: [address] [address] Blood 11/21/2024 4:15 AM CDT 11/21/2024 7:54 AM CDT us Notinfile Unknown LAB BLOOD ORDERABLES Final Res ult NILSA [facility]9 [facility] Department [place] [address] * (ABNORMAL) CBC with auto differential (11/21/2024 4:15 AM CDT) WBC 9.29 3.80 - 9.90 K/cumm NILSA RODRIGES Comment:Testing performed by : [address] [address] Hgb 8.9(L) 11.9 - 15.5 g/dL NILSA RODRIGES Comment:Testing performed by : [address] [address] Hct 28.2(L) 35.6 - 45.5 % NILSA RODRIGES Comment:Testing performed by : [address] [address] Plt 246 150 - 400 K/cumm NILSA RODRIGES Comment:Testing performed by : [address] [address] MPV 11.4 9.1 - 12.3 fL NILSA RODRIGES Comment:Testing performed by : [address] [address] RBC 2.72(L) 3.90 - 5.20 M/cumm NILSA RODRIGES Comment:Testing performed by : [address] [address] MCV 103.7(H) 81.3 - 96.4 fL NILSA RODRIGES Comment:Testing performed by : [address] [address] MCH 32.7 27.1 - 33.3 pg NILSA RODRIGES Comment:Testing performed by : [address] [address] MCHC 31.6(L) 32.3 - 35.7 g/dL NILSA RODRIGES Comment:Testing performed by : [address] [address] RDW CV 16.0(H) 11.1 - 14.9 % NILSA Comment:Testing performed by : [address] [address] RDW SD 59.4(H) 35.7 - 48.1 fL NILSA Comment:Testing performed by : [address] [address] NRBC abs 0.00 0.00 - 0.01 K/cumm NILSA Comment:Testing performed by : [address] [address] Blood 11/21/2024 4:15 AM CDT 11/21/2024 7:54 AM CDT us Notinfile Unknown LAB BLOOD ORDERABLES Final Res ult NILSA RODRIGES [address] [facility] Department of Laboratories [place], [place] [id number] * (ABNORMAL) Comprehensive metabolic panel (11/21/2024 4:15 AM CDT) Sodium 135 135 - 145 mmol/L NILSA RODRIGES Comment:Testing performed by : [address] [address] Potassium, pl 4.6 3.3 - 4.9 mmol/L NILSA RODRIGES Comment:Testing performed by : [address], [place]., [address] Chloride 100 97 - 110 mmol/L NILSA Comment:Testing performed by : [address], [place]., [address] CO2 22 22 - 32 mmol/L NILSA Comment:Testing performed by : [address], [place]., [address] Anion gap 13 2 - 15 mmol/L NILSA Comment:Testing performed by : [address], [place]., [address] BUN 62(H) 6 - 25 mg/dL [facility] Comment:Testing performed by : [address], [place]., [address] Creatinine 5.57(H) 0.60 - 1.10 mg/dL NILSA Comment:Testing performed by : [address], [place]., [address] Glucose 148 70 - 199 mg/dL [facility]ELLEN Comment: Interpretive Data Fasting glucose >/= 126 [...] was last revised 2022. Testing performed by: [address] [address] Calcium 9.5 8.5 - 10.3 mg/dL NILSA Comment:Testing performed by : [address] [address] Bilirubin, total <0.2 0.1 - 1.2 mg/dL NILSA Comment:Testing performed by : [address], [place]., [address] Protein, pl 6.7 6.5 - 8.5 g/dL NILSA Comment:Testing performed by : [address] [address] Albumin 3.5 3.5 - 5.0 g/dL NILSA Comment:Testing performed by : [address] [address] Alk phos 120 40 - 130 Units/L NILSA Comment:Testing performed by : [address] [address] ALT 15 7 - 45 Units/L NILSA Comment:Testing performed by : [address] [address] AST 16 10 - 45 Units/L NILSA Comment:Testing performed by : [address] [address] Blood 11/21/2024 4:15 AM CDT 11/21/2024 7:54 AM CDT us Notinfile Unknown LAB BLOOD ORDERABLES Final Res ult Performing Organization Address City/[facility]/ZIP Co de Phone Number NILSA [facility]0 [facility] [place] [place] [address] * Hepatitis B core antibody, total Blood (11/15/2024 5:15 AM CDT) Pathologist [facility] Hep B core IgG/IgM Nonreactive Nonreactive NILSA Comment:Testing performed by : [facility], [address] [facility], [place]., [address] Blood 11/15/2024 5:15 AM CDT 11/15/2024 11:24 AM CDT us Notinfile Unknown LAB MICROBIOLOGY - GENERAL ORD ERABLES Final Result CARLOS ENRIQUE[address] [place] [place] [address] * Hepatitis B Surface Antigen Blood (11/15/2024 5:15 AM CDT) Pathologist [facility] HepBsAg Nonreactive Nonreactive NILSA Blood 11/15/2024 5:15 AM CDT 11/15/2024 12:58 PM CDT us Notinfile Unknown LAB MICROBIOLOGY - GENERAL ORD ERABLES Final Result Performing Organization Address [facility] Co de Phone Number NILSA RODRIGES [address] [facility] [employer] [place] [employer] [place] [address] * (ABNORMAL) eGFR (11/14/2024 1:00 PM CDT) [...] was last reviewed 2021. Testing performed by: [address] [address] Blood 11/14/2024 1:00 PM CDT 11/14/2024 5:20 PM CDT us Notinfile Unknown LAB BLOOD ORDERABLES Final Res ult Performing Organization Address City/[facility]/ZIP Co de Phone Number NILSA [address] [facility] [place] [place] [address] * Differential, auto (11/14/2024 1:00 PM CDT) Neutrophil abs 6.30 1.50 - 6.50 K/cumm NILSA Comment:Testing performed by : [address] [place] [address] Imm gran abs 0.05 0.00 - 0.10 K/cumm [facility] Comment:Testing performed by : [address] [address] Lymphocyte abs 2.83 0.80 - 3.30 K/cumm [facility] Comment:Testing performed by : [address] [address] Monocyte abs 0.71 0.20 - 0.80 K/cumm [facility] Comment:Testing performed by : [address] [address] Eosinophil abs 0.15 0.00 - 0.50 K/cumm [facility] Comment:Testing performed by : [address] [address] Basophil abs 0.04 0.00 - 0.10 K/cumm [facility] Comment:Testing performed by : [address] [address] Neutrophil pct 62.5 % [facility] Comment: Interpretive Data Percent cell count reference ranges are not reported, since discordance with absolute values may lead to misinterpretation of CBC data. Current Interpretive Data was last revised on 2017. Testing performed by: [address] [address] Imm gran pct 0.5 % [facility] Comment: Interpretive Data Percent cell count reference ranges are not reported, since discordance with absolute values may lead to misinterpretation of CBC data. Current Interpretive Data was last revised on 2017. Testing performed by: [address] [address] Lymphocyte pct 28.1 % [facility] Comment: Interpretive Data Percent cell count reference ranges are not reported, since discordance with absolute values may lead to misinterpretation of CBC data. Current Interpretive Data was last revised on 2017. Testing performed by: [address] [address] Monocyte pct 7.0 % [facility] Comment: Interpretive Data Percent cell count reference ranges are not reported, since discordance with absolute values may lead to misinterpretation of CBC data. Current Interpretive Data was last revised on 2017. Testing performed by: [address] [address] Eosinophil pct 1.5 % NILSA RODRIGES Comment: Interpretive Data Percent cell count reference ranges are not reported, since discordance with absolute values may lead to misinterpretation of CBC data. Current Interpretive Data was last revised on 2017. Testing performed by: [address] [address] Basophil pct 0.4 % NILSA RODRIGES Comment: Interpretive Data Percent cell count reference ranges are not reported, since discordance with absolute values may lead to misinterpretation of CBC data. Current Interpretive Data was last revised on 2017. Testing performed by: [address] [address] Blood 11/14/2024 1:00 PM CDT 11/14/2024 5:20 PM CDT us Notinfile Unknown LAB BLOOD ORDERABLES Final Res ult NILSA [facility]0 [facility] Department of Laboratories [place], [place] [id number] * (ABNORMAL) CBC with auto differential (11/14/2024 1:00 PM CDT) WBC 10.08(H) 3.80 - 9.90 K/cumm NILSA RODRIGES Comment:Testing performed by : [address] [address] Hgb 9.4(L) 11.9 - 15.5 g/dL NILSA RODRIGES Comment:Testing performed by : [address] [address] Hct 30.5(L) 35.6 - 45.5 % NILSA RODRIGES Comment:Testing performed by : [address] [address] Plt 297 150 - 400 K/cumm NILSA RODRIGES Comment:Testing performed by : [address] [address] MPV 10.4 9.1 - 12.3 fL NILSA RODRIGES Comment:Testing performed by : [facility], [address] [place] [address]., [address] RBC 2.84(L) 3.90 - 5.20 M/cumm NILSA RODRIGES Comment:Testing performed by : [address] [address] MCV 107.4(H) 81.3 - 96.4 fL NILSA RODRIGES Comment:Testing performed by : [address] [address] MCH 33.1 27.1 - 33.3 pg NILSA RODRIGES Comment:Testing performed by : [address] [address] MCHC 30.8(L) 32.3 - 35.7 g/dL NILSA RODRIGES Comment:Testing performed by : [address] [address] RDW CV 16.1(H) 11.1 - 14.9 % NILSA Comment:Testing performed by : [address], [address] RDW SD 58.9(H) 35.7 - 48.1 fL NILSA Comment:Testing performed by : [address] [address] NRBC abs 0.14(H) 0.00 - 0.01 K/cumm NILSA Comment:Testing performed by : [address] [address] Blood 11/14/2024 1:00 PM CDT 11/14/2024 5:20 PM CDT us Notinfile Unknown LAB BLOOD ORDERABLES Final Res ult NILSA RODRIGES [address] [facility] Department [place] [address] * Hepatitis B surface antibody [...] ORD ERABLES Final Result NILSA RODRIGES [address] [facility] Department [place] [address] * (ABNORMAL) Comprehensive metabolic panel (11/14/2024 1:00 PM CDT) Sodium 138 135 - 145 mmol/L NILSA Comment:Testing performed by : [address] [address] Potassium, pl 3.9 3.3 - 4.9 mmol/L NILSA Comment:Testing performed by : [address] [address] Chloride 101 97 - 110 mmol/L NILSA Comment:Testing performed by : [address] [address] CO2 22 22 - 32 mmol/L NILSA Comment:Testing performed by : [address] [address] Anion gap 15 2 - 15 mmol/L NILSA Comment:Testing performed by : [address] [address] BUN 52(H) 6 - 25 mg/dL NILSA Comment:Testing performed by : [address] [address] Creatinine 5.47(H) 0.60 - 1.10 mg/dL NILSA Comment:Testing performed by : [address] [address] Glucose 136 70 - 199 mg/dL NILSA [...] was last revised 2022. Testing performed by: [address] [address] Calcium 9.8 8.5 - 10.3 mg/dL NILSA Comment:Testing performed by : [address] [address] Bilirubin, total 0.2 0.1 - 1.2 mg/dL [facility] Comment:Testing performed by : [address] [address] Protein, pl 7.5 6.5 - 8.5 g/dL [facility] Comment:Testing performed by : [address] [address] Albumin 3.9 3.5 - 5.0 g/dL [facility] Comment:Testing performed by : [address] [address] Alk phos 128 40 - 130 Units/L [facility]LLEN Comment:Testing performed by : [address] [address] ALT 24 7 - 45 Units/L [facility] Comment:Testing performed by : [address] [address] AST 18 10 - 45 Units/L [facility] Comment:Testing performed by : [address] [address] Blood 11/14/2024 1:00 PM CDT 11/14/2024 5:20 PM CDT us Notinfile Unknown LAB BLOOD ORDERABLES Final Res ult Performing Organization Address [facility] de Phone Number NILSA [address] [facility] [place] [employer] [place] [address] * (ABNORMAL) eGFR (11/13/2024 5:35 AM CDT) [...] was last reviewed 2021. Testing performed by: [address] [address] Blood 11/13/2024 5:35 AM CDT 11/13/2024 8:55 AM CDT us Notinfile Unknown LAB BLOOD ORDERABLES Final Res ult Performing Organization Address [facility] Co de Phone Number [facility] [address] [facility] [employer] [place], [place] [id number] * (ABNORMAL) CBC with auto differential (11/13/2024 5:35 AM CDT) WBC 9.10 3.80 - 9.90 K/cumm NILSA Comment:Testing performed by : [address] [address] Hgb 8.9(L) 11.9 - 15.5 g/dL NILSA Comment:Testing performed by : [address] [address] Hct 28.4(L) 35.6 - 45.5 % NILSA Comment:Testing performed by : [address] [address] Plt 270 150 - 400 K/cumm NILSA Comment:Testing performed by : [address] [address] MPV 10.3 9.1 - 12.3 fL NILSA Comment:Testing performed by : [address] [address] RBC 2.70(L) 3.90 - 5.20 M/cumm NILSA Comment:Testing performed by : [address] [address] MCV 105.2(H) 81.3 - 96.4 fL NILSA Comment:Testing performed by : [address] [address] MCH 33.0 27.1 - 33.3 pg NILSA Comment:Testing performed by : [address] [address] MCHC 31.3(L) 32.3 - 35.7 g/dL NILSA Comment:Testing performed by : [address] [address] RDW CV 15.9(H) 11.1 - 14.9 % NILSA Comment:Testing performed by : [address] [address] RDW SD 57.1(H) 35.7 - 48.1 fL NILSA Comment:Testing performed by : [address] [address] NRBC abs 0.33(H) 0.00 - 0.01 K/cumm NILSA Comment:Testing performed by : [address] [address] Blood 11/13/2024 5:35 AM CDT 11/13/2024 8:55 AM CDT us Notinfile Unknown LAB BLOOD ORDERABLES Final Res ult NILSA [address] [facility] Department [place] [address] * (ABNORMAL) Manual Differential (11/13/2024 5:35 AM CDT) Differential Manual NILSA Comment:Testing performed by : [address] [address] Cells Counted 100 NILSA Comment:Testing performed by : [address] [address] Neutrophil abs 5.46 1.50 - 6.50 K/cumm NILSA Comment:Testing performed by : [address] [address] Lymphocyte abs 2.73 0.80 - 3.30 K/cumm NILSA Comment:Testing performed by : [address] [address] Monocyte abs 0.82(H) 0.20 - 0.80 K/cumm NILSA Comment:Testing performed by : [address] [address] Eosinophil abs 0.09 0.00 - 0.50 K/cumm NILSA Comment:Testing performed by : [address] [address] Neutrophil pct 60.0 % NILSA Comment: Interpretive Data Percent cell count reference ranges are not reported, since discordance with absolute values may lead to misinterpretation of CBC data. Current Interpretive Data was last revised on 2017. Testing performed by: [address] [address] Lymphocyte pct 30.0 % NILSA Comment: Interpretive Data Percent cell count reference ranges are not reported, since discordance with absolute values may lead to misinterpretation of CBC data. Current Interpretive Data was last revised on 2017. Testing performed by: [address] [address] Monocyte pct 9.0 % NILSA Comment: Interpretive Data Percent cell count reference ranges are not reported, since discordance with absolute values may lead to misinterpretation of CBC data. Current Interpretive Data was last revised on 2017. Testing performed by: [address] [address] Eosinophil pct 1.0 % NILSA Comment: Interpretive Data Percent cell count reference ranges are not reported, since discordance with absolute values may lead to misinterpretation of CBC data. Current Interpretive Data was last revised on 2017. Testing performed by: [address] [address] RBC morphology Present(A) NILSA Comment:Testing performed by : [address] [address] Anisocytosis Moderate(A ) NILSA Comment:Testing performed by : [address] [address] Macrocytes 8-15/HPF(A ) NILSA Comment:Testing performed by : [address] [address] Schistocytes 1-2/HPF(A) NILSA Comment:Testing performed by : [address] [address] Platelet clumping Present(A) NILSA Comment:Testing performed by : [address] [address] Blood 11/13/2024 5:35 AM CDT 11/13/2024 8:55 AM CDT us Notinfile Unknown LAB BLOOD ORDERABLES Final Res ult NILSA [address] [facility] Department [place] [address] * (ABNORMAL) Comprehensive metabolic panel (11/13/2024 5:35 AM CDT) Sodium 139 135 - 145 mmol/L NILSA Comment:Testing performed by : [address] [address] Potassium, pl 4.2 3.3 - 4.9 mmol/L NILSA Comment:Testing performed by : [address] [address] Chloride 102 97 - 110 mmol/L NILSA Comment:Testing performed by : [address] [address] CO2 25 22 - 32 mmol/L NILSA Comment:Testing performed by : [address] [address] Anion gap 12 2 - 15 mmol/L NILSA Comment:Testing performed by : [address], [place]., [address] BUN 30(H) 6 - 25 mg/dL NILSA Comment:Testing performed by : [address] [address] Creatinine 4.07(H) 0.60 - 1.10 mg/dL NILSA Comment:Testing performed by : [address] [address] Glucose 144 70 - 199 mg/dL NILSA [...] was last revised 2022. Testing performed by: [address] [address] Calcium 9.4 8.5 - 10.3 mg/dL NILSA Comment:Testing performed by : [address] [address] Bilirubin, total 0.2 0.1 - 1.2 mg/dL NILSA Comment:Testing performed by : [address] [address] Protein, pl 7.0 6.5 - 8.5 g/dL NILSA Comment:Testing performed by : [address] [address] Albumin 3.7 3.5 - 5.0 g/dL NILSA Comment:Testing performed by : [address] [address] Alk phos 127 40 - 130 Units/L NILSA Comment:Testing performed by : [address] [address] ALT 21 7 - 45 Units/L NILSA Comment:Testing performed by : [address] [address] AST 22 10 - 45 Units/L NILAS Comment:Testing performed by : [address] [address] Blood 11/13/2024 5:35 AM CDT 11/13/2024 8:55 AM CDT us Notinfile Unknown LAB BLOOD ORDERABLES Final Res ult Performing Organization Address City/[facility]/ZIP Co de Phone Number [address] [place] [address] * POCT glucose (11/05/2024 11:49 AM CDT) [facility] Glucose, POC 187 70 - 199 mg/dL Glucose comment 1 RN/MD Notified [facility] Blood 11/05/2024 11:4 9 AM CDT 11/05/2024 11:49 AM CDT us Juan J Heller MD LAB POCT ORDERABLES - DEVICE Final Result Performing Organization Address City/[facility]/ZIP Co de Phone Number [address] [place] [address] * (ABNORMAL) eGFR (11/05/2024 6:52 AM CDT) [facility] eGFR 8(L) >=60 mL/min/1. 73 m2 Comment: [...] NP LAB BLOOD ORDERABLES Fin al Result [facility] [address] [facility] Department [place] [address] * Differential, auto (11/05/2024 6:52 AM CDT) Pathologist [facility] Neutrophil abs 5.74 1.50 - 6.50 K/cumm Imm gran abs 0.05 0.00 - 0.10 K/cumm [facility] Lymphocyte abs 1.98 0.80 - 3.30 K/cumm [facility] Monocyte abs 0.73 0.20 - 0.80 K/cumm [facility] Eosinophil abs 0.13 0.00 - 0.50 K/cumm [facility] Basophil abs 0.03 0.00 - 0.10 K/cumm [facility] Neutrophil pct 66.3 % [facility] Comment: Interpretive Data Percent cell count reference ranges are not reported, since discordance with absolute values may lead to misinterpretation of CBC data. Current Interpretive Data was last revised on 2017. Imm gran pct 0.6 % [facility] Comment: Interpretive Data Percent cell count reference ranges are not reported, since discordance with absolute values may lead to misinterpretation of CBC data. Current Interpretive Data was last revised on 2017. Lymphocyte pct 22.9 % [facility] Comment: Interpretive Data Percent cell count reference ranges are not reported, since discordance with absolute values may lead to misinterpretation of CBC data. Current Interpretive Data was last revised on 2017. Monocyte pct 8.4 % [facility] Comment: Interpretive Data Percent cell count reference ranges are not reported, since discordance with absolute values may lead to misinterpretation of CBC data. Current Interpretive Data was last revised on 2017. Eosinophil pct 1.5 % [facility] Comment: Interpretive Data Percent cell count reference ranges are not reported, since discordance with absolute values may lead to misinterpretation of CBC data. Current Interpretive Data was last revised on 2017. Basophil pct 0.3 % [facility] Comment: Interpretive Data Percent cell count reference ranges are not reported, since discordance with absolute values may lead to misinterpretation of CBC data. Current Interpretive Data was last revised on 2017. Blood 11/05/2024 6:52 AM CDT 11/05/2024 7:12 AM CDT us Brad Sebastien Smallwood RETAIL CUSTOMER SERVICE REPRESENTATIVE LAB BLOOD ORDERABLES Fin al Result [place] [address] [facility] Department [place] [address] * (ABNORMAL) CBC with auto differential (11/05/2024 6:52 AM CDT) WBC 8.66 3.80 - 9.90 K/cumm Hgb 8.6(L) 11.9 - 15.5 g/dL [facility] Hct 26.6(L) 35.6 - 45.5 % [facility] Plt 215 150 - 400 K/cumm [facility] MPV 10.4 9.1 - 12.3 fL [facility] RBC 2.60(L) 3.90 - 5.20 M/cumm [facility] MCV 102.3(H) 81.3 - 96.4 fL [facility] MCH 33.1 27.1 - 33.3 pg [facility] MCHC 32.3 32.3 - 35.7 g/dL [facility] RDW CV 13.8 11.1 - 14.9 % [facility] RDW SD 51.4(H) 35.7 - 48.1 fL [facility] NRBC abs 0.09(H) 0.00 - 0.01 K/cumm [facility] Blood 11/05/2024 6:52 AM CDT 11/05/2024 7:12 AM CDT us Brad Sebastien Smallwood RETAIL CUSTOMER SERVICE REPRESENTATIVE LAB BLOOD ORDERABLES Fin al Result [facility] [address] [facility] Department [place] [address] * (ABNORMAL) Basic metabolic panel (11/05/2024 6:52 AM CDT) Sodium 135 135 - 145 mmol/L Potassium, pl 4.5 3.3 - 4.9 mmol/L [facility] Chloride 96(L) 97 - 110 mmol/L [facility] CO2 28 22 - 32 mmol/L [facility] Anion gap 11 2 - 15 mmol/L [facility] BUN 34(H) 6 - 25 mg/dL [facility] Creatinine 5.23(H) 0.60 - 1.10 mg/dL [facility] Glucose 145 70 - 199 mg/dL [facility] Comment: Interpretive Data Fasting glucose >/= 126 [...] 2022. Calcium 9.0 8.5 - 10.3 mg/dL [facility] Blood 11/05/2024 6:52 AM CDT 11/05/2024 7:12 AM CDT Bradmichael Dobbinsmargaret Smallwood RETAIL CUSTOMER SERVICE REPRESENTATIVE LAB BLOOD ORDERABLES Fin al Result Performing Organization Address [facility] Co de Phone Number [address] [place] [address] * (ABNORMAL) POCT glucose (11/04/2024 9:22 PM CDT) Glucose, POC 223(H) 70 - 199 mg/dL Blood 11/04/2024 9:22 PM CDT 11/04/2024 9:22 PM CDT Juan J Heller MD LAB POCT ORDERABLES - DEVICE Final Result Performing Organization Address [facility] de Phone Number [address] [place] [address] * (ABNORMAL) POCT glucose (11/04/2024 4:33 PM CDT) Glucose, POC 240(H) 70 - 199 mg/dL Glucose comment 1 Use This Result [facility] Glucose comment 2 RN/MD Notified NILSA Blood 11/04/2024 4:33 PM CDT 11/04/2024 4:33 PM CDT Juan J Heller MD LAB POCT ORDERABLES - DEVICE Final Result Performing Organization Address [facility] Co de Phone Number [address] [place] [address] * POCT glucose (11/04/2024 11:12 AM CDT) Glucose, POC 177 70 - 199 mg/dL Glucose comment 1 RN/MD Notified [facility] Blood 11/04/2024 11:1 2 AM CDT 11/04/2024 11:12 AM CDT Juan J Heller MD LAB POCT ORDERABLES - DEVICE Final Result Performing Organization Address City/[facility]/ZIP Co de Phone Number CARLOS ENRIQUE[address] [place] [address] * POCT glucose (11/04/2024 9:37 AM CDT) Glucose, POC 138 70 - 199 mg/dL Blood 11/04/2024 9:37 AM CDT 11/04/2024 9:37 AM CDT Juan J Heller MD LAB POCT ORDERABLES - DEVICE Final Result Performing Organization Address City/[facility] Co de Phone Number NILSA [address] [place] [address] * POCT glucose (11/04/2024 6:09 AM CDT) [facility] Glucose, POC 190 70 - 199 mg/dL Blood 11/04/2024 6:09 AM CDT 11/04/2024 6:09 AM CDT Juan J Heller MD LAB POCT ORDERABLES - DEVICE Final Result Performing Organization Address City/[facility] Co de Phone Number CARLOS ENRIQUE[address] [place] [address] * (ABNORMAL) eGFR (11/04/2024 4:16 AM CDT) [facility] eGFR 6(L) >=60 mL/min/1. 73 m2 Comment: [...] 4:35 AM CDT us Brad Sebastien Smallwood RETAIL CUSTOMER SERVICE REPRESENTATIVE LAB BLOOD ORDERABLES Fin al Result [place] [id number] [facility] Department [place] [address] * Differential, auto (11/04/2024 4:16 AM CDT) Neutrophil abs 4.99 1.50 - 6.50 K/cumm Imm gran abs 0.05 0.00 - 0.10 K/cumm [facility] Lymphocyte abs 2.56 0.80 - 3.30 K/cumm [facility] Monocyte abs 0.70 0.20 - 0.80 K/cumm [facility] Eosinophil abs 0.15 0.00 - 0.50 K/cumm [facility] Basophil abs 0.03 0.00 - 0.10 K/cumm [facility] Neutrophil pct 58.7 % [facility] Comment: Interpretive Data Percent cell count reference ranges are not reported, since discordance with absolute values may lead to misinterpretation of CBC data. Current Interpretive Data was last revised on 2017. Imm gran pct 0.6 % [facility] Comment: Interpretive Data Percent cell count reference ranges are not reported, since discordance with absolute values may lead to misinterpretation of CBC data. Current Interpretive Data was last revised on 2017. Lymphocyte pct 30.2 % [facility] Comment: Interpretive Data Percent cell count reference ranges are not reported, since discordance with absolute values may lead to misinterpretation of CBC data. Current Interpretive Data was last revised on 2017. Monocyte pct 8.3 % [facility] Comment: Interpretive Data Percent cell count reference ranges are not reported, since discordance with absolute values may lead to misinterpretation of CBC data. Current Interpretive Data was last revised on 2017. Eosinophil pct 1.8 % [facility] Comment: Interpretive Data Percent cell count reference ranges are not reported, since discordance with absolute values may lead to misinterpretation of CBC data. Current Interpretive Data was last revised on 2017. Basophil pct 0.4 % [facility] Comment: Interpretive Data Percent cell count reference ranges are not reported, since discordance with absolute values may lead to misinterpretation of CBC data. Current Interpretive Data was last revised on 2017. Blood 11/04/2024 4:16 AM CDT 11/04/2024 4:35 AM CDT us Brad Sebastien Smallwood RETAIL CUSTOMER SERVICE REPRESENTATIVE LAB BLOOD ORDERABLES Fin al Result [place] [address] [facility] Department [place] [address] * (ABNORMAL) CBC with auto differential (11/04/2024 4:16 AM CDT) WBC 8.48 3.80 - 9.90 K/cumm Hgb 7.3(L) 11.9 - 15.5 g/dL [facility] Hct 22.2(L) 35.6 - 45.5 % [facility] Plt 196 150 - 400 K/cumm [facility] MPV 10.4 9.1 - 12.3 fL [facility] RBC 2.24(L) 3.90 - 5.20 M/cumm [facility] MCV 99.1(H) 81.3 - 96.4 fL [facility] MCH 32.6 27.1 - 33.3 pg [facility] MCHC 32.9 32.3 - 35.7 g/dL [facility] RDW CV 13.4 11.1 - 14.9 % [facility] RDW SD 48.3(H) 35.7 - 48.1 fL [facility] NRBC abs 0.02(H) 0.00 - 0.01 K/cumm [facility] Blood 11/04/2024 4:16 AM CDT 11/04/2024 4:35 AM CDT [facility] LAB BLOOD ORDERABLES Fin al Result NILSA [address] [facility] [place] [address] * (ABNORMAL) Basic metabolic panel (11/04/2024 4:16 AM CDT) [facility] Sodium 135 135 - 145 mmol/L Potassium, pl 4.7 3.3 - 4.9 mmol/L [facility] Chloride 95(L) 97 - 110 mmol/L [facility] CO2 25 22 - 32 mmol/L [facility] Anion gap 15 2 - 15 mmol/L [facility] BUN 57(H) 6 - 25 mg/dL [facility] Creatinine 6.58(H) 0.60 - 1.10 mg/dL [facility] Glucose 153 70 - 199 mg/dL [facility] Comment: Interpretive Data Fasting glucose >/= 126 [...] 2022. Calcium 8.3(L) 8.5 - 10.3 mg/dL [facility] Blood 11/04/2024 4:16 AM CDT 11/04/2024 4:35 AM CDT RUST Sebastien Smallwood RETAIL CUSTOMER SERVICE REPRESENTATIVE LAB BLOOD ORDERABLES Fin al Result Performing Organization Address [facility] Co de Phone Number NILSA [facility] [place] [address] * (ABNORMAL) POCT glucose (11/03/2024 8:27 PM CDT) Glucose, POC 222(H) 70 - 199 mg/dL Glucose comment 1 RN/ Notified [facility] Blood 11/03/2024 8:27 PM CDT 11/03/2024 8:27 PM CDT Juan J Heller MD LAB POCT ORDERABLES - DEVICE Final Result Performing Organization Address [facility] de Phone Number [address] [place] [address] * (ABNORMAL) POCT glucose (11/03/2024 3:45 PM CDT) Glucose, POC 217(H) 70 - 199 mg/dL Glucose comment 1 Use This Result [facility] Glucose comment 2 RN/ Notified [facility] Blood 11/03/2024 3:45 PM CDT 11/03/2024 3:45 PM CDT Juan J Heller MD LAB POCT ORDERABLES - DEVICE Final Result Performing Organization Address [facility] de Phone Number [address] [address] * MRI Brain WO Contrast (11/03/2024 1:17 [...] Hyperostosis frontalis interna. ORBITS: No acute abnormality. [place] ocular lenses replaced bilaterally. PARANASAL SINUSES AND MASTOIDS: Tiny focus of opacifying material in the dependent left sphenoid sinuses. Slight scattered fluid about the dcjxn-jhduhob-sdah-left mastoid air cells. Scattered fluid OTHER: No other significant finding. IMPRESSION: Within the limitations of patient motion artifact, no acute intracranial process with chronic findings as above. THIS IS AN ELECTRONICALLY VERIFIED FINAL REPORT 11/03/2024 1:26 PM - Electronically signed by Redd Hendrickson M.D. CHANDA T: Report ID: [id number] [place] Location: [id number] Procedure Note Redd Hendrickson MD - 11/03/2024 EXAM DESCRIPTION: MRI BRAIN WO CONTRAST REASON FOR STUDY: Altered mental status of unspecified duration. Noprovision of focal neurologic deficits. No provided history of trauma or inciting and/or aggravating events. No provided past medical or surgical history. TECHNIQUE: Multiplanar imaging includes non-contrasted T1, T2, FLAIR, and diffusion with ADC map sequences. Additional sequence(s) sensitive [employer]. Images stored on PACS. Patient motion artifact [...] Hyperostosis frontalis interna. ORBITS: No acute abnormality. [place] ocular lenses replaced bilaterally. PARANASAL SINUSES AND MASTOIDS: Tiny focus of opacifying material in the dependent left sphenoid sinuses. Slight scattered fluid about the qugzz-vurybin-nedt-left mastoid air cells. Scattered fluid OTHER: No other significant finding. IMPRESSION: Within the limitations of patient motion artifact, no acute intracranial process with chronic findings as above. THIS IS AN ELECTRONICALLY VERIFIED FINAL REPORT 11/03/2024 1:26 PM - Electronically signed by Redd ARMAS T: Report ID: [id number] [place] Location: [id number] Juan J Heller MD IMG MRI PROCEDURES [...] Performing Organization Address City/[facility]/ZIP Co de Phone Number NILSA [address] [address] * POCT glucose (11/03/2024 7:17 AM CDT) Glucose, POC 139 70 - 199 mg/dL Glucose comment 1 Use This Result [facility] Glucose comment 2 RN/MD Notified [facility] Blood 11/03/2024 7:17 AM CDT 11/03/2024 7:17 AM CDT Juan J Heller MD LAB POCT ORDERABLES - DEVICE Final Result Performing Organization Address City/[facility] Co de Phone Number CARLOS ENRI[address] [address] * (ABNORMAL) eGFR (11/03/2024 2:33 AM CDT) [facility] Signature eGFR 10(L) >=60 mL/min/1. 73 m2 [...] 3:06 AM CDT us Brad Sebastien Smallwood RETAIL CUSTOMER SERVICE REPRESENTATIVE LAB BLOOD ORDERABLES Fin al Result NILSA [address] [facility] Department [place] [address] * Differential, auto (11/03/2024 2:33 AM CDT) Pathologist [facility] Neutrophil abs 5.20 1.50 - 6.50 K/cumm Imm gran abs 0.03 0.00 - 0.10 K/cumm [facility] Lymphocyte abs 2.47 0.80 - 3.30 K/cumm [facility] Monocyte abs 0.66 0.20 - 0.80 K/cumm [facility] Eosinophil abs 0.14 0.00 - 0.50 K/cumm [facility] Basophil abs 0.04 0.00 - 0.10 K/cumm [facility] Neutrophil pct 60.9 % [facility] Comment: Interpretive Data Percent cell count reference ranges are not reported, since discordance with absolute values may lead to misinterpretation of CBC data. Current Interpretive Data was last revised on 2017. Imm gran pct 0.4 % [facility] Comment: Interpretive Data Percent cell count reference ranges are not reported, since discordance with absolute values may lead to misinterpretation of CBC data. Current Interpretive Data was last revised on 2017. Lymphocyte pct 28.9 % [facility] Comment: Interpretive Data Percent cell count reference ranges are not reported, since discordance with absolute values may lead to misinterpretation of CBC data. Current Interpretive Data was last revised on 2017. Monocyte pct 7.7 % [facility] Comment: Interpretive Data Percent cell count reference ranges are not reported, since discordance with absolute values may lead to misinterpretation of CBC data. Current Interpretive Data was last revised on 2017. Eosinophil pct 1.6 % [facility] Comment: Interpretive Data Percent cell count reference ranges are not reported, since discordance with absolute values may lead to misinterpretation of CBC data. Current Interpretive Data was last revised on 2017. Basophil pct 0.5 % [facility] Comment: Interpretive Data Percent cell count reference ranges are not reported, since discordance with absolute values may lead to misinterpretation of CBC data. Current Interpretive Data was last revised on 2017. Blood 11/03/2024 2:33 AM CDT 11/03/2024 3:03 AM CDT [facility] RETAIL CUSTOMER SERVICE REPRESENTATIVE LAB BLOOD ORDERABLES Fin al Result Performing Organization Address [facility] Co de Phone Number NILSA [address] [employer] [place] [address] * (ABNORMAL) CBC with auto differential (11/03/2024 2:33 AM CDT) WBC 8.54 3.80 - 9.90 K/cumm Hgb 7.4(L) 11.9 - 15.5 g/dL [facility] Hct 22.8(L) 35.6 - 45.5 % [facility] Plt 195 150 - 400 K/cumm [facility] MPV 10.8 9.1 - 12.3 fL [facility] RBC 2.25(L) 3.90 - 5.20 M/cumm [facility] MCV 101.3(H) 81.3 - 96.4 fL [facility] MCH 32.9 27.1 - 33.3 pg [facility] MCHC 32.5 32.3 - 35.7 g/dL [facility] RDW CV 13.3 11.1 - 14.9 % [facility] RDW SD 49.3(H) 35.7 - 48.1 fL [facility] NRBC abs 0.00 0.00 - 0.01 K/cumm [facility] Blood 11/03/2024 2:3 3 AM CDT 11/03/2024 3:03 AM CDT [email or web address] RETAIL CUSTOMER SERVICE REPRESENTATIVE LAB BLOOD ORDERABLES Fin al Result Performing Organization Address [facility] Co de Phone Number NILSA [address] [place] [address] * (ABNORMAL) Basic metabolic panel (11/03/2024 2:33 AM CDT) Sodium 135 135 - 145 mmol/L Potassium, pl 4.1 3.3 - 4.9 mmol/L [facility] Chloride 95(L) 97 - 110 mmol/L [facility] CO2 27 22 - 32 mmol/L [facility] Anion gap 13 2 - 15 mmol/L [facility] BUN 38(H) 6 - 25 mg/dL [facility] Creatinine 4.56(H) 0.60 - 1.10 mg/dL [facility] Glucose 131 70 - 199 mg/dL [facility] Comment: Interpretive Data Fasting glucose >/= 126 [...] 2022. Calcium 8.0(L) 8.5 - 10.3 mg/dL [facility] Blood 11/03/2024 2:33 AM CDT 11/03/2024 3:03 AM CDT us Brad Smallwood NP LAB BLOOD ORDERABLES Fin al Result Performing Organization Address City/[facility] Co de Phone Number [facility] [address] [facility] Department [place] [address] * POCT glucose (11/02/2024 9:40 PM CDT) Glucose, POC 157 70 - 199 mg/dL Glucose comment 1 RN/MD Notified [facility] Blood 11/02/2024 9:40 PM CDT 11/02/2024 9:40 PM CDT Jua nJ Heller MD LAB POCT ORDERABLES - DEVICE Final Result Performing Organization Address City/State/[facility] Co de Phone Number NILSA [address] [place] [address] * Ammonia (11/02/2024 6:56 PM CDT) Ammonia 24 <=50 mcmol/L Comment: Please note on 2023 the unit of measure changed from mcg/dL to mcmol/L. Current Interpretive Data was last revised on 2023. Blood 11/02/2024 6:56 PM CDT 11/02/2024 7:04 PM CDT Juan J Heller MD LAB BLOOD ORDERABLE S Final Result Performing Organization Address [facility] Co de Phone Number NILSA [address] [place] [address] * CT Head WO Contrast (11/02/2024 6:31 [...] Salvador Bronson M.D. KT T: Report ID: [id number] [place] Location: [id number] Procedure Note Salvador Bronson MD - 11/02/2024 [...] Salvador Bronson M.D., KT T: Report ID: [id number] [place] Location: [id number] [facility] [place] inal Result * (ABNORMAL) POC Blood Gas and Chemistries, Arterial - (11/02/2024 6:17 PM CDT) pH, art POC 7.45 7.35 - 7.45 pCO2, art POC 40 35 - 45 mmHg [facility] pO2, art POC 95 83 - 108 mmHg [facility] HCO3, art (Calc) POC 28 20 - 30 mmol/L [facility] Base excess, art POC 4 mmol/L [facility] Comment: Interpretive Data No reference range established. Current interpretive data was last revised 2020. O2 Sat, art (Calc) POC 95 94 - 98 % [facility] Oxy Hgb, art POC 95.4(H) 90.0 - 95.0 % [facility] Met Hgb, art POC 0.0 0.0 - 1.9 % [facility] Carboxy Hgb, art POC 0.0 0.0 - 2.9 % [facility] Hemoglobin, art POC 8.8(L) 11.9 - 15.5 g/dL [facility] Blood 11/02/2024 6:17 PM CDT 11/02/2024 6:17 PM CDT Juan J Heller MD LAB POCT ORDERABLES - DEVICE Final Result Performing Organization Address City/[facility] Co de Phone Number [address] [place] [address] * POCT glucose (11/02/2024 5:13 PM CDT) Glucose, POC 150 70 - 199 mg/dL Glucose comment 1 RN/ Notified [facility] Blood 11/02/2024 5:13 PM CDT 11/02/2024 5:13 PM CDT Juan J Heller MD LAB POCT ORDERABLES - DEVICE Final Result Performing Organization Address [facility] de Phone Number [address] [place] [address] * POCT glucose (11/02/2024 12:32 PM CDT) Glucose, POC 173 70 - 199 mg/dL Glucose comment 1 RN/ Notified [facility] Blood 11/02/2024 12:3 2 PM CDT 11/02/2024 12:32 PM CDT Juan J Heller MD LAB POCT ORDERABLES - DEVICE Final Result Performing Organization Address City/[facility] Co de Phone Number [address] [place] [address] * POCT glucose (11/02/2024 7:50 AM CDT) Glucose, POC 184 70 - 199 mg/dL Glucose comment 1 RN/ Notified [facility] Blood 11/02/2024 7:50 AM CDT 11/02/2024 7:50 AM CDT Juan J Heller MD LAB POCT ORDERABLES - DEVICE Final Result Performing Organization Address [facility] Co de Phone Number [address] [place] [address] * Hepatitis B surface antibody (immune status) [...] HBsAb (immune status) index 628.0 mIUnits/m L [facility] Blood 11/02/2024 7:14 AM CDT 11/02/2024 7:32 AM CDT Rohan Funes MD LAB MICROBIOLOGY - GENERAL ORDERABLES Final Result Performing Organization Address [facility] Co de Phone Number [address] [place] [address] * Hepatitis B Surface Antigen Blood (11/02/2024 7:14 AM CDT) HepBsAg Nonreactive Nonreactive Blood 11/02/2024 7:14 AM CDT 11/02/2024 7:32 AM CDT Rohna Funes MD LAB MICROBIOLOGY - GENERAL ORDERABLES Final Result Performing Organization Address [facility] Co de Phone Number [address] [place] [address] * (ABNORMAL) eGFR (11/02/2024 3:48 AM CDT) [facility] eGFR 8(L) >=60 mL/min/1. 73 m2 Comment: [...] NP LAB BLOOD ORDERABLES Fin al Result [facility] [address] [facility] Department [place] [address] * Differential, auto (11/02/2024 3:48 AM CDT) [facility] Neutrophil abs 5.44 1.50 - 6.50 K/cumm Imm gran abs 0.03 0.00 - 0.10 K/cumm [facility] Lymphocyte abs 2.16 0.80 - 3.30 K/cumm [facility] Monocyte abs 0.62 0.20 - 0.80 K/cumm [facility] Eosinophil abs 0.12 0.00 - 0.50 K/cumm [facility] Basophil abs 0.02 0.00 - 0.10 K/cumm [facility] Neutrophil pct 64.9 % [facility] Comment: Interpretive Data Percent cell count reference ranges are not reported, since discordance with absolute values may lead to misinterpretation of CBC data. Current Interpretive Data was last revised on 2017. Imm gran pct 0.4 % [facility] Comment: Interpretive Data Percent cell count reference ranges are not reported, since discordance with absolute values may lead to misinterpretation of CBC data. Current Interpretive Data was last revised on 2017. Lymphocyte pct 25.7 % [facility] Comment: Interpretive Data Percent cell count reference ranges are not reported, since discordance with absolute values may lead to misinterpretation of CBC data. Current Interpretive Data was last revised on 2017. Monocyte pct 7.4 % [facility] Comment: Interpretive Data Percent cell count reference ranges are not reported, since discordance with absolute values may lead to misinterpretation of CBC data. Current Interpretive Data was last revised on 2017. Eosinophil pct 1.4 % [facility] Comment: Interpretive Data Percent cell count reference ranges are not reported, since discordance with absolute values may lead to misinterpretation of CBC data. Current Interpretive Data was last revised on 2017. Basophil pct 0.2 % [facility] Comment: Interpretive Data Percent cell count reference ranges are not reported, since discordance with absolute values may lead to misinterpretation of CBC data. Current Interpretive Data was last revised on 2017. Blood 11/02/2024 3:48 AM CDT 11/02/2024 4:01 AM CDT us Brad Sebastien Smallwood RETAIL CUSTOMER SERVICE REPRESENTATIVE LAB BLOOD ORDERABLES Fin al Result [facility] [address] [facility] Department [place] [address] * (ABNORMAL) CBC with auto differential (11/02/2024 3:48 AM CDT) WBC 8.39 3.80 - 9.90 K/cumm Hgb 7.2(L) 11.9 - 15.5 g/dL [facility] Hct 22.3(L) 35.6 - 45.5 % [facility] Plt 186 150 - 400 K/cumm [facility] MPV 10.9 9.1 - 12.3 fL [facility] RBC 2.20(L) 3.90 - 5.20 M/cumm [facility] MCV 101.4(H) 81.3 - 96.4 fL [facility] MCH 32.7 27.1 - 33.3 pg [facility] MCHC 32.3 32.3 - 35.7 g/dL [facility] RDW CV 13.5 11.1 - 14.9 % [facility] RDW SD 49.7(H) 35.7 - 48.1 fL [facility] NRBC abs 0.00 0.00 - 0.01 K/cumm [facility] Blood 11/02/2024 3:48 AM CDT 11/02/2024 4:01 AM CDT [facility] RETAIL CUSTOMER SERVICE REPRESENTATIVE LAB BLOOD ORDERABLES Fin al Result Performing Organization Address [facility] de Phone Number [address] [place] [address] * Folate (11/02/2024 3:48 AM CDT) [facility] Folic acid 7.0 >=5.0 ng/mL Blood 11/02/2024 3:48 AM CDT 11/02/2024 4:01 AM CDT [facility] RETAIL CUSTOMER SERVICE REPRESENTATIVE LAB BLOOD ORDERABLES Fin al Result Performing Organization Address [facility] de Phone Number [address] [place] [address] * (ABNORMAL) Basic metabolic panel (11/02/2024 3:48 AM CDT) [facility] Sodium 135 135 - 145 mmol/L Potassium, pl 4.6 3.3 - 4.9 mmol/L [facility] Chloride 99 97 - 110 mmol/L [facility] CO2 24 22 - 32 mmol/L [facility] Anion gap 12 2 - 15 mmol/L [facility] BUN 64(H) 6 - 25 mg/dL [facility] Creatinine 5.43(H) 0.60 - 1.10 mg/dL [facility] Glucose 227(H) 70 - 199 mg/dL [facility] Comment: Interpretive Data Fasting glucose >/= 126 [...] 2022. Calcium 9.0 8.5 - 10.3 mg/dL [facility] Blood 11/02/2024 3:48 AM CDT 11/02/2024 4:01 AM CDT [facility] LAB BLOOD ORDERABLES Fin al Result Performing Organization Address City/[facility] Co de Phone Number [address] [place] [address] * Lactate (11/01/2024 10:05 PM CDT) Pathologist [facility] Lactate 1.4 0.7 - 2.0 mmol/L Blood 11/01/2024 10:0 5 PM CDT 11/01/2024 10:15 PM CDT Brad [facility] LAB BLOOD ORDERABLES Fin al Result [address] [place] [address] * (ABNORMAL) Erythrocyte sedimentation rate (11/01/2024 10:05 PM CDT) Erythrocyte sedimentation rate 43(H) 1 - 30 mm/hr Blood 11/01/2024 10:0 5 PM CDT 11/01/2024 10:15 PM CDT Brad Tabernero Rufin RETAIL CUSTOMER SERVICE REPRESENTATIVE LAB BLOOD ORDERABLES Fin al Result Performing Organization Address City/[facility] Co de Phone Number CARLOS ENRI[address] [address] * CRP (acute phase) (11/01/2024 10:05 PM CDT) CRP 3.6 <=10.0 mg/L Blood 11/01/2024 10:0 5 PM CDT 11/01/2024 10:15 PM CDT [facility] RETAIL CUSTOMER SERVICE REPRESENTATIVE LAB BLOOD ORDERABLES Fin al Result Performing Organization Address [facility] de Phone Number [address] [address] * Phosphorus (11/01/2024 10:05 PM CDT) Phosphorus, pl 4.3 2.3 - 4.5 mg/dL Blood 11/01/2024 10:0 5 PM CDT 11/01/2024 10:15 PM CDT [facility] Tab[facility] Rufin RETAIL CUSTOMER SERVICE REPRESENTATIVE LAB BLOOD ORDERABLES Fin al Result Performing Organization Address [facility] Co de Phone Number [address] [address] * Magnesium (11/01/2024 10:05 PM CDT) Magnesium 1.5 1.4 - 2.5 mg/dL Blood 11/01/2024 10:0 5 PM CDT 11/01/2024 10:15 PM CDT [facility] Tab[facility] Rufin RETAIL CUSTOMER SERVICE REPRESENTATIVE LAB BLOOD ORDERABLES Fin al Result Performing Organization Address City/[facility] Co de Phone Number [address] [address] * (ABNORMAL) Hemoglobin A1c (11/01/2024 10:05 PM CDT) [facility] Hgb A1C 7.1(H) 4.0 - 5.6 % Estimated Average Glucose 157 mg/dL [facility] Comment: The ADA recommends reporting an estimated Average Glucose (eAG) with all Hemoglobin A1c results using the equation derived from a study of 507 normal and diabetic adults. Minority populations were underrepresented and children were not included. (Diabetes Care 31:5643-5168, 2008). The eAG is not equivalent to a fasting glucose. Blood 11/01/2024 10:0 5 PM CDT 11/01/2024 10:15 PM CDT [facility] LAB BLOOD ORDERABLES Fin al Result Performing Organization Address [facility] de Phone Number [address] [address] * Vitamin B12 (11/01/2024 10:05 PM CDT) [facility] Vitamin B12 584 230 - 1,250 pg/mL Blood 11/01/2024 10:0 5 PM CDT 11/01/2024 10:15 PM CDT [facility] LAB BLOOD ORDERABLES Fin al Result Performing Organization Address City/[facility] Co de Phone Number [address] [address] * (ABNORMAL) Lipid panel (11/01/2024 10:05 PM CDT) [facility] Cholesterol 98 30 - 199 mg/dL Comment: [...] revised on 2024. Non-HDL Cholesterol 60 mg/dL [facility] Comment: Interpretive Data Ages < or = [...] last revised on 2018. Chol/HDL ratio 3 [facility] Blood 11/01/2024 10:0 5 PM CDT 11/01/2024 10:15 PM CDT us Brad Smallwood NP LAB BLOOD ORDERABLES Fin al Result Performing Organization Address City/[facility]/ZIP Co de Phone Number [address] [place] [address] * (ABNORMAL) POCT glucose (11/01/2024 9:59 PM CDT) [facility] Glucose, POC 217(H) 70 - 199 mg/dL Glucose comment 1 Use This Result [facility] Glucose comment 2 RN/MD Notified [facility] Blood 11/01/2024 9:59 PM CDT 11/01/2024 9:59 PM CDT us Des Lopez MD LAB POCT ORDERABLES - DEVICE F inal Result Performing Organization Address City/[facility]/ZIP Co de Phone Number [address] [place] [address] * (ABNORMAL) Urinalysis reflex to microscopic and culture Urine (11/01/2024 7:23 PM CDT) Color, ur Straw Yellow Clarity, ur Clear Clear [facility] Specific gravity, ur 1.007 1.003 - 1.030 [facility] pH, urine 7.5 [facility] Comment: Interpretive Data U rine pH is affected by diet, medications, systemic acid-base disturbances, and renal tubular function. pH may affect urinary stone formation. For example, urine pH below 6.0 may help reduce the tendency for calcium phosphate stones and pH greater than 6.0 may reduce the tendency for uric acid stone formation. Source: [facility] Current Interpretive Data was last revised on 2017 Protein, ur ql 1+(A) Negative [facility] Glucose, ur ql 3+(A) Negative [facility] Ketones, ur Negative Negative [facility] Bilirubin, ur Negative Negative [facility] Blood, ur Negative Negative [facility] Urobilinogen, ur <2.0 <2.0 mg/dL [facility] Nitrite, ur Negative Negative [facility] Leukocyte esterase, ur 4+(A) Negative [facility] UA reflex comment Reflex to microscopic UA will be performed. [facility] Urine 11/01/2024 7:23 PM CDT 11/01/2024 7:37 PM CDT us Tahmina Palencia MD LAB MICROBIOLOGY - GEN ERAL ORDERABLES Final Result [facility] [address] [facility] Department [place] [address] * (ABNORMAL) Urinalysis, microscopic only (11/01/2024 7:23 PM CDT) WBC, ur >50(A) 0 - 5 /HPF RBC, ur 0-2 0 - 2 /HPF [facility] Epithelial cells, squamous, ur 1-5 0 - 5 /HPF [facility] Culture Reflex Comment Reflex to urine culture will be performed. [facility] Urine 11/01/2024 7:23 PM CDT 11/01/2024 7:37 PM CDT us Tahmina Palencia MD LAB URINE ORDERABLES F inal Result Performing Organization Address City/[facility]/ZIP Co de Phone Number NILSA [address] [place] [address] * (ABNORMAL) Urine culture Urine (11/01/2024 7:23 PM CDT) Report Final Report: Greater than or equal to 100,000 colonies/mL of Proteus mirabilis Plus growth of clinically insignificant bacterial shruti. (.) Comment:Testing performed by : [facility], [address] [place] [address] Organism PROTEUS MIRABILIS NILSA Organism PLUS GROWTH OF CLINICALLY INSIGNIFICANT SHRUTI. NILSA Urine 11/01/2024 7:23 PM CDT 11/02/2024 12:58 AM CDT Narrative NILSA - 11/04/2024 10:48 AM CDT Urine culture reflexed based upon urinalysis results. Testing performed by [facility] ([phone]) Organism Antibiotic Method Susceptibility Proteus mirabilis Ampicillin [...] - GEN ERAL ORDERABLES Final Result NILSA [address] [place] [address] * CT Chest Abdomen Pelvis W Contrast [...] Salvador Bronson M.D. KT T: Report ID: [id number] Reading Location: [id number] Procedure Note Salvador Bronson MD - 11/01/2024 [...] Salvador Bronson M.D. KT T: Report ID: [id number] [place] Location: [place] [address] Tahmina Palencai MD IMG CT PROCEDURES Blessing l Result [...] and well aerated. ORBITS: No acute abnormality. [place] ocular lenses replaced bilaterally. OTHER: No other significant abnormality. INTRACRANIAL VESSELS [place]: The anterior, middle, posterior cerebral [...] Redd Hendrickson M.D. CHANDA T: Report ID: [id number] Reading Location: [place] [address] Procedure Note Redd Hendrickson MD - 11/01/2024 [...] and well aerated. ORBITS: No acute abnormality. [place] ocular lenses replaced bilaterally. OTHER: No other significant abnormality. INTRACRANIAL VESSELS [place]: The anterior, middle, posterior cerebral [...] Redd Hendrickson M.D. CHANDA T: Report ID: [id number] Reading Location: [place] [address] us Tahmina Palencia MD IMG CT PROCEDURES [...] LAB BLOOD ORDERABLES F inal Result NILSA [address] [facility] [place] [employer] [place] [address] * CT Head WO Contrast [...] Shayne Landaverde M.D. AM T: Report ID: [id number] Reading Location: [id number] Procedure Note Shayne Landaverde MD - 11/01/2024 [...] Shayne Landaverde M.D. AM T: Report ID: [id number] Reading Location: [id number] Brittney CUEVA IM CT PROCEDURES Final Re [...] James Javier M.D. MZ T: Report ID: [id number] [place] Location: [place] [address] Procedure Note James Javier MD - 11/01/2024 [...] James Javier M.D. MZ T: Report ID: [id number] Reading Location: [id number] Tahmina Palencia MD IMG XR PROCEDURES Blessing [...] MD LAB BLOOD ORDERABLES F inal Result [facility] [address] [facility] Department [place] [address] * (ABNORMAL) eGFR (11/01/2024 2:03 PM CDT) [...] MD LAB BLOOD ORDERABLES F inal Result [facility] [address] [facility] Department [place] [address] * (ABNORMAL) Differential, auto (11/01/2024 2:03 PM CDT) Neutrophil abs 7.67(H) 1.50 - 6.50 K/cumm Imm gran abs 0.05 0.00 - 0.10 K/cumm [facility] Lymphocyte abs 1.67 0.80 - 3.30 K/cumm [facility] Monocyte abs 0.43 0.20 - 0.80 K/cumm [facility] Eosinophil abs 0.11 0.00 - 0.50 K/cumm [facility] Basophil abs 0.02 0.00 - 0.10 K/cumm [facility] Neutrophil pct 77.1 % [facility] Comment: Interpretive Data Percent cell count reference ranges are not reported, since discordance with absolute values may lead to misinterpretation of CBC data. Current Interpretive Data was last revised on 2017. Imm gran pct 0.5 % [facility] Comment: Interpretive Data Percent cell count reference ranges are not reported, since discordance with absolute values may lead to misinterpretation of CBC data. Current Interpretive Data was last revised on 2017. Lymphocyte pct 16.8 % [facility] Comment: Interpretive Data Percent cell count reference ranges are not reported, since discordance with absolute values may lead to misinterpretation of CBC data. Current Interpretive Data was last revised on 2017. Monocyte pct 4.3 % [facility] Comment: Interpretive Data Percent cell count reference ranges are not reported, since discordance with absolute values may lead to misinterpretation of CBC data. Current Interpretive Data was last revised on 2017. Eosinophil pct 1.1 % [facility] Comment: Interpretive Data Percent cell count reference ranges are not reported, since discordance with absolute values may lead to misinterpretation of CBC data. Current Interpretive Data was last revised on 2017. Basophil pct 0.2 % [facility] Comment: Interpretive Data Percent cell count reference ranges are not reported, since discordance with absolute values may lead to misinterpretation of CBC data. Current Interpretive Data was last revised on 2017. Blood 11/01/2024 2:03 PM CDT 11/01/2024 2:05 PM CDT Tahmina Palencia MD LAB BLOOD ORDERABLES F inal Result NILSA [address] [facility] Department [place] [address] * (ABNORMAL) Pro B-type natriuretic peptide (11/01/2024 [...] ORDERABLES F inal Result Performing Organization Address [facility] Co de Phone Number NILSA [address] [place] [address] * (ABNORMAL) CBC with auto differential (11/01/2024 2:03 PM CDT) WBC 9.95(H) 3.80 - 9.90 K/cumm Hgb 8.8(L) 11.9 - 15.5 g/dL [facility] Hct 27.2(L) 35.6 - 45.5 % [facility] Plt 207 150 - 400 K/cumm [facility] MPV 10.6 9.1 - 12.3 fL [facility] RBC 2.66(L) 3.90 - 5.20 M/cumm [facility] MCV 102.3(H) 81.3 - 96.4 fL [facility] MCH 33.1 27.1 - 33.3 pg [facility] MCHC 32.4 32.3 - 35.7 g/dL [facility] RDW CV 13.4 11.1 - 14.9 % [facility] RDW SD 50.4(H) 35.7 - 48.1 fL [facility] NRBC abs 0.00 0.00 - 0.01 K/cumm [facility] Blood 11/01/2024 2:03 PM CDT 11/01/2024 2:05 PM CDT us Tahmina Palencia MD LAB BLOOD ORDERABLES F inal Result Performing Organization Address [facility]/ZIP Co de Phone Number NILSA [address] [place] [address] * (ABNORMAL) Comprehensive metabolic panel (11/01/2024 2:03 PM CDT) Pathologist [facility] Sodium 133(L) 135 - 145 mmol/L Potassium, pl 4.3 3.3 - 4.9 mmol/L [facility] Chloride 95(L) 97 - 110 mmol/L [facility] CO2 23 22 - 32 mmol/L [facility] Anion gap 15 2 - 15 mmol/L [facility] BUN 55(H) 6 - 25 mg/dL [facility] Creatinine 4.86(H) 0.60 - 1.10 mg/dL [facility] Glucose 290(H) 70 - 199 mg/dL [facility] Comment: Interpretive Data Fasting glucose >/= 126 [...] 2022. Calcium 9.2 8.5 - 10.3 mg/dL [facility] Bilirubin, total 0.2 0.1 - 1.2 mg/dL [facility] Protein, pl 7.0 6.5 - 8.5 g/dL [facility] Albumin 3.7 3.5 - 5.0 g/dL [facility] Alk phos 116 40 - 130 Units/L [facility] ALT 58(H) 7 - 45 Units/L [facility] AST 26 10 - 45 Units/L [facility] Blood 11/01/2024 2:03 PM CDT 11/01/2024 2:05 PM CDT us Tahmina Palencia MD LAB BLOOD ORDERABLES F inal Result [facility] [address] [facility] Department [place] [address] * ECG 12 lead (11/01/2024 1:59 PM CDT) Ventricular Rate EKG/Min 73 BPM [facility] Atrial Rate 73 BPM [facility] [place]-Interval (MSEC) 146 ms [facility] QRS-Interval (MSEC) 58 ms [facility] QT-Interval (MSEC) 396 ms [facility] QTc 436 ms [facility] P [place] 47 degrees [facility] R [place] 2 degrees [facility] T [place] 66 degrees [facility] Diagnosis Normal sinus rhythm Normal ECG When compared with ECG of 12-JUL-2024 11:48, No significant change was found Confirmed by DIAMOND GUTIERREZ M.D. ([id number]) on 11/02/2024 11:07:33 PM [facility] 11/01/2024 1:59 PM CDT 11/02/2024 11:07 PM CDT us Tahmina Palencia MD ECG ORDERABLES Final Result [facility] * (ABNORMAL) Urinalysis reflex to microscopic and culture Urine, clean voided (10/31/2024 9:47 AM CDT) Color, ur Mikayla Yellow Comment:Testing performed by : [address] [address] Clarity, ur Turbid(A) Clear NILSA Comment:Testing performed by : [address] [address] Specific gravity, ur 1.008 1.003 - 1.030 NILSA Comment:Testing performed by : [address] [address] pH, urine 8.0 NILSA Comment: Interpretive Data U rine pH is affected by diet, medications, systemic acid-base disturbances, and renal tubular function. pH may affect urinary stone formation. For example, urine pH below 6.0 may help reduce the tendency for calcium phosphate stones and pH greater than 6.0 may reduce the tendency for uric acid stone formation. Source: [employer] Current Interpretive Data was last revised on 2017 Testing performed by: [address] [address] Protein, ur ql 2+(A) Negative NILSA Comment:Testing performed by : [address] [address] Glucose, ur ql 3+(A) Negative NILSA RODRIGES Comment:Testing performed by : [facility], [address] [place] [address], [place]., [address] Ketones, ur Negative Negative NILSA Comment:Testing performed by : [facility], [address] [place] [address], [place]., [address] Bilirubin, ur Negative Negative NILSA Comment:Testing performed by : [address], [place]., [address] Blood, ur Trace(A) Negative NILSA Comment:Testing performed by : [address], [place]., [address] Urobilinogen, ur <2.0 <2.0 mg/dL NILSA Comment:Testing performed by : [address], [place]., [address] Nitrite, ur Negative Negative NILSA Comment:Testing performed by : [address], [place]., [address] Leukocyte esterase, ur 4+(A) Negative NILSA Comment:Testing performed by : [address], [place]., [address] UA reflex comment Reflex to microscopic UA will be performed. NILSA Comment:Testing performed by : [address] [address] Urine, clean voided 10/31/2024 9:47 AM CDT 10/31/2024 9:50 AM CDT Cherelle Corcoran MD LAB MICROBIOLOGY - GENERAL ORDERABLES Final Result NILSA [address] [facility] Department [place] [address] * (ABNORMAL) Urinalysis, microscopic only (10/31/2024 9:47 AM CDT) WBC, ur 6-10(A) 0 - 5 /HPF Comment:Testing performed by : [address], [place]., [address] RBC, ur 0-2 0 - 2 /HPF NILSA RODRIGES Comment:Testing performed by : [address] [address] Bacteria, ur Trace(A) NILSA RODRIGES Comment:Testing performed by : [address] [address] Culture Reflex Comment Reflex conditions for urine culture (WBC >10) not met. NILSA RODRIGES Comment:Testing performed by : [address] [address] Urine, clean voided 10/31/2024 9:47 AM CDT 10/31/2024 9:50 AM CDT us Cherelle Corcoran MD LAB URINE ORDERAB LES Final Result NILSA RODRIGES [address] [facility] [place] [address] * XR Chest PA Lateral 2 Views [...] Edwardo Louis M.D. RW: ADAMARIS Report ID: [id number] Reading Location: [id number] Procedure Note Edwardo Louis MD - 10/24/2024 [...] Edwardo Louis M.D. RW: ADAMARIS Report ID: [id number] Reading Location: [place] [address] Cherelle Corcoran MD IMG XR PROCEDURES Final Result * CT CORONARY CALCIUM SCORING (10/17/2024 9:30 AM CDT) Anatomical Region Laterality Modality Chest Computed Tomogra phy Historical Provider MD MERIDA CT PROCEDURES Final R esult * Diabetic Eye Exam (07/27/2024 12:37 PM LIABILITY CLAIMS EXAMINER) Historical Provider HEALTH MAINTENANCE Final Result * Colonoscopy (03/01/2024 8:49 AM CDT) Anatomical Region Laterality Modality Other Narrative Procedure Note Jaya Grier MD - 03/01/2024 8:49 AM CDT [facility] GI ENDOSCOPY Patient Name: Barbara Chakraborty [...] The scope was passed under direct vision.The [id number]-JX120V colonoscope was introduced through theanus and advanced [...] On: 03/01/2024 8:49 AM Recognized by the [place] [employer] for promoting quality [...] taking vitamin-D. History of end-stage renal disease. Shake Cutter/Model: [employer] Horizon A (S/N [id number]) CLINICAL INFORMATION: Current height: 61 inches Maximum [...] Rafaela Paulino M.D. TW: TW Report ID: [id number] Reading Location: [id number] Procedure Note Rafaela Paulino MD - 01/22/2024 EXAM DESCRIPTION: DEXA AXIAL SKELETON BONE DENSITY 1 OR MORE SITES REASON FOR STUDY: 73 y/o year old F with given history of: Post menopausal status. History of taking vitamin-D. History of end-stagerenal disease. Shake Cutter/Model: [employer] A (S/N [id number]) CLINICAL INFORMATION: Current height: 61 inches Maximum [...] Rafaela Paulino M.D. TW: TW Report ID: [id number] Reading Location: [id number] Cherelle Corcoran MD IMG DXA PROCEDURE S [...] age 40, based on guidelines of the [place] [employer] (ACR Practice Parameter for the Performance of Screening and Diagnostic Mammography) and [place] [employer]. For women [...] on 19. Hep C Ab Nonreactive Nonreactive [facility] Comment: Interpretive Data Nonreactive: Antibodies to HCV [...] last revised on 2019. HepBsAg Nonreactive Nonreactive [facility] Blood 10/15/2023 6:50 AM CDT 10/15/2023 7:07 AM CDT Jimbo Strauss MD LAB MICROBIOLOGY - GENERAL FREDDY HALEY Final Result [facility] [address] Department [place] [address] * (ABNORMAL) Albumin Creatinine Ratio, Urine (10/10/2022 11:39 AM CDT) Albumin Ur 3,240.2 mg/L [facility] Comment: Interpretive Data No reference range established. Current interpretive data was last revised 2018. Testing performed by: [address] [address] Creatinine Ur 74.8 mg/dL [facility] Comment: Interpretive Data No reference range established. Current interpretive data was last revised 2018. Testing performed by: [address] [address] Albumin Creatinine Ratio, Ur 4,332(H) 1 - 29 mg/g [facility] Comment:Testing performed by : [address] [address] Urine 10/10/2022 11:3 9 AM CDT 10/10/2022 1:45 PM CDT Markie Ryan MD LAB URINE ORDERABLES Final Re sult Performing Organization Address City/[facility] Co de Phone Number [facility] [address] [facility] Department [place] [address] from Last 3 Months or Most Recently Relevant to Health Maintenance Insurance MEDICARE MEDICARE IDIN MEDICARE IDPA MEDICARE [facility] Advance Directives For more information, please contact: [phone] Documents on File Type Date Recorded 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 Expl 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 ADVANCE DIRECTIVE 07/15/2024 7:58 AM Power of Gift Shop Manager-Medical ADVANCE DIRECTIVE 02/02/2024 12:34 PM Erik r of Gift Shop Manager-Medical * Full Code (Latest Code Status [...] Areli Gonzalez Health Care Agent Care Teams Business Trainer Relationship Specialty Start Date End Date Cherelle Corcoran MD PCP - General Family Medicine 08/30/19 Mark Queen MD Consulting Physician Infectious Diseases 01/10/20 Rudolph Welch MD [address] [facility] [address] [place] [address] Consulting Physician Infectious Diseases 12/05/22 Markie Ryan MD [address] [facility] [address] [place] [address] Consulting Physician Nephrology 12/05/22 [place] [id number] [address] Consulting Physician Nephrology 10/22/23 Jaya Grier MD [address] [facility] [address] [place] [address] Consulting Physician Gastroenterology 02/01/24 Edgardo Kauffman MD [address] [facility] [address] [facility] [address] [place] [address] Surgeon Vascular Surgery 07/15/24
--- OUTSIDE RECORDS SUMMARY | 2024-12-26 13:04 | XMS_ITS | Encounter Summary ---
Author Organization [facility] Address [address] [place] [address] Phone Care Team Providers Care Director Medical Surgical Name Role Phone Cherelle Corcoran MD Primary Care Pro vider QueenMark Perez MD Unavailable [phone] Rudolph Welch MD Unavailable [phone] Markie Ryan MD Unavailable [phone] Jimbo Strauss MD Unavailable [phone] Jaya Grier MD Unavailable Edgardo Kauffman MD Unavailable [phone] Reason for Visit * Reason Comments Diabetes Type 2 Encounter Details Date Type Department Care Team (Latest Contact Info) Description 12/26/2024 8:40 AM CDT Office Visit [facility] Endocrinology Metabolism and Lipid [address] [facility] [address] [place] [address] Smith Gibbs MD [address] [place] [address] Type 2 diabetes mellitus with [...] materials from doctor or pharmacy Often 01/20/2024 [facility] Utilities Answer Date Recorded In the past 12 months has [employer], or water [employer] threatened to shut off services in your [...] you attend chur ch or jain services? 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 Gender Identity Female 02/08/2020 6:39 PM CDT [...] as needed for rhinitis FreeStyle Madhav 3 [facility] Use Madhav 3 reader to scan Madhav [...] under the skin nightly) 6 mL 0 lidocain-me.jvyrtqi-bbzh-fyhbq 4-20-0.025-5 % adhesive patch,medicated Apply 1 patch [...] of insulin ([facility] ([facility]) Poor glycemic control as suggested by [...] chronic dialysis, with long-term currentuse of insulin ([facility]) (Primary) -Management as above Orders Placed [...] of Medicine Endocrinology, Metabolism and Lipid Research [facility] in [place] documented in this encounter Plan of Treatment [...] ([facility]) documented in this encounter Discontinued Medications Medication Sig Discontinue Reason Start Date End Da te calcitRIOL (ROCALTROL) 0.25 mcg capsule Take 1 capsule (0.25 mcg total) by mouth Patient Reported 06/07/2024 12/26/2024 blood glucose diagnostic (Easy Touch Test Strip) stripIndications:Type 2 diabetes mellitus with diabetic neuropathy, with long-term current use of insulin ([facility]) 1 each by other route daily Reorder 07/08/2024 12/26/2024 documented as of this encounter Historical Medications * This list may reflect changes made after this encounter. lidocain-me.juanita cbt-pzlo-yxwto 4-20-0.025-5 % adhesive patch,medicated Apply 1 patch topically 11/07/2024 added in this encounter Care Teams Director Medical Surgical Relationship Specialty Start Date End Date Cherelle Corcoran MD PCP - General Family Medicine 08/30/19 Mark Queen MD Consulting Physician Infectious Diseases 01/10/20 Rudolph Welch MD [address] [facility] [address] [place] [address] Consulting Physician Infectious Diseases 12/05/22 Markie Ryan MD [address] [facility] [address] [place] [address] Consulting Physician Nephrology 12/05/22 [place] [id number] [address] Consulting Physician Nephrology 10/22/23 Jaya Grier MD [address] [facility] [address] [place] [address] Consulting Physician Gastroenterology 02/01/24 Edgardo Kauffman MD [address] [facility] [address] [facility] [address] [place] [address] Surgeon Vascular Surgery 07/15/24 documented as of this encounter
--- OUTSIDE RECORDS SUMMARY | 2024-12-26 13:04 | XMS_ITS | Clinical Summary ---
Author Organization [facility] Address [address] [place] [address] Care Team Providers Care Water Conservation Specialist Name Role Phone Cherelle Corcoran MD Primary Care Pro vider QueenMark Perez MD Unavailable [phone] Rudolph Welch MD Unavailable Markie Ryan MD Unavailable [phone] Jimbo Strauss MD Unavailable [phone] Jaya Grier MD Unavailable Edgardo Kauffman MD Unavailable Allergies No known active allergies Medications FreeStyle Madhav 3 [facility] [place], [place] Use [...] nephropathy, with long-term current use of insulin ([facility]) Use to continually monitor glucose, change sensor [...] nephropathy, with long-term current use of insulin ([facility]) Inject 4 units SQ before meals along [...] DAILY 90 tablet 1 2024 Active lidocain-me.sali [id number] 4-20-0.025-5 % adhesive patch,medicated Apply 1 patch [...] neuropathy, with long-term current use of insulin ([facility]) 1 each by other route daily 100 [...] restarting Assessment & Plan (07/14/2024 2:30 PM NUISANCE WILDLIFE TRAPPER): Continue Lipitor Assessment & Plan (07/14/2024 8:56 AM NUISANCE WILDLIFE TRAPPER): Ok to restart atorvastatin, but also given [...] nephrology Assessment & Plan (07/14/2024 2:39 PM NUISANCE WILDLIFE TRAPPER): Patient is needing a Perma catheter exchange [...] proceed. Assessment & Plan (07/14/2024 8:51 AM NUISANCE WILDLIFE TRAPPER): Following with nephrology Assessment & Plan (01/06/2024 [...] 10/30/2023 Assessment & Plan (05/06/2024 7:49 AM NUISANCE WILDLIFE TRAPPER): Reviewed hospital discharge summary Now resolved Upcoming [...] stable Assessment & Plan (07/24/2023 1:51 PM NUISANCE WILDLIFE TRAPPER): Chronic/stable Parkinsonism 08/14/2022 Assessment & Plan (10/24/2024 10:57 AM CDT): Following with neurology Assessment & Plan (07/14/2024 8:54 AM NUISANCE WILDLIFE TRAPPER): Following with neurology, recommend reaching out to them in regards to restarting benztropine. Consider waiting until after restarts other medications given daughter reports tremors controlled off benztropine currently Assessment & Plan (11/10/2023 4:43 PM CDT): Following with neurology On cogentin Assessment & Plan (07/24/2023 1:50 PM NUISANCE WILDLIFE TRAPPER): Following with neurology On cogentin twice a day Assessment & Plan (01/23/2023 9:20 AM CDT): Following with neurology On cogentin twice a day Assessment & Plan (10/10/2022 10:41 AM CDT): Following with neurology On cogentin Assessment & Plan (08/14/2022 10:46 AM NUISANCE WILDLIFE TRAPPER): Following with neurology, reviewed note On cogentin [...] walker. - PT/OT recommends SNF. -Plan [facility] on 11/26 ? Assessment & Plan (11/24/2021 2:07 PM CDT): Deconditioning 2/2 prolonged hospitalization. Daughter reports that prior to her illness, she was independent with a walker. - PT/OT recommends SNF. -Plan [facility] on 11/25. Assessment & Plan (11/23/2021 12:24 PM CDT): Deconditioning 2/2 prolonged hospitalization. Daughter reports that prior to her illness, she was independent with a walker. - PT/OT recommends SNF. -Plan [facility] on 11/25. Assessment & Plan (11/22/2021 [...] care Assessment & Plan (08/14/2022 10:47 AM NUISANCE WILDLIFE TRAPPER): Following with podiatry Assessment & Plan (04/02/2022 [...] renal consulted regarding volume management, possible terminal superintendent dialysis planning, expedite OP f/u. Serologies and urine studies ordered. ED neg, compliments neg, cryoglobulin pending, ANCA pending, HIV neg. Continued -Added metolazone 2.5mg/daily per renal 09/13- with improving swelling, Cr bump to 2.33 so held further -Transitioned to PO agents prior to DC (09/17) with ongoing clinical improvement. Goal weight 155lbs -Home with family at [place], wire drawing setter consulted to review salt restrictions. -outpatient BMP, [...] renal consulted regarding volume management, possible terminal superintendent dialysis planning, expedite OP f/u. Serologies and urine studies ordered. ED neg, compliments neg, cryoglobulin pending, ANCA pending, HIV neg. Continued -Added metolazone 2.5mg/daily per renal 09/13- with improving swelling, Cr bump to 2.33 so held further -Anticipate likely transition to PO agents prior to DC (?09/17) with ongoing clinical improvement. Goal weight 155lbs -Home with family at [place], wire drawing setter consulted to review salt restrictions. Assessment & [...] - renal consulted regarding volume management, possible long-term dialysis planning, expedite OP f/u. Serologies and urine studies ordered. -Added metolazone 2.5mg/daily per renal. -Anticipate likely transition to PO agents prior to DC with ongoing clinical improvement. Goal weight 145-150lbs -Home with family at [place], wire drawing setter consulted to review salt restrictions. Assessment & [...] renal consulted regarding volume management, possible terminal superintendent dialysis planning, expedite OP f/u. Serologies and [...] renal consulted regarding volume management, possible terminal superintendent dialysis planning, expedite OP f/u. Serologies and [...] renal consulted regarding volume management, possible terminal superintendent dialysis planning, expedite OP f/u. Assessment & [...] net neg 1/2-1L/day. -consider renal consult regarding long-term dialysis planning, expedite OP f/u. Assessment & [...] net neg 1/2-1L/day. -consider renal consult regarding long-term dialysis planning. Assessment & Plan (09/06/2021 10:28 [...] neurology Assessment & Plan (07/14/2024 8:53 AM NUISANCE WILDLIFE TRAPPER): Following with neurology Assessment & Plan (01/05/2024 10:40 PM CDT): Follows with neurology. -continue risperidone 2mg QHS -continue benztropine 2mg daily Assessment & Plan (11/10/2023 4:37 PM CDT): Following with neurology Assessment & Plan (07/24/2023 1:50 PM NUISANCE WILDLIFE TRAPPER): Following with neurology Assessment & Plan (01/23/2023 9:18 AM CDT): Following with neurology Assessment & Plan (10/10/2022 10:37 AM CDT): Following with neurology, ordered MRI, # given to son to schedule Assessment & Plan (06/09/2022 3:37 PM NUISANCE WILDLIFE TRAPPER): Needs to reschedule with neurology Looking into snf, but declined for [facility] for schizoaffective disorder Assessment [...] needed Assessment & Plan (06/09/2022 3:37 PM NUISANCE WILDLIFE TRAPPER): Reviewed PMH & PHQ Screening PHQ-2 Total Score (If total score is 3 or more points, staff should administer the PHQ-9): 0 Hearing/vision screening reviewed, referrals placed as needed Fall risk reviewed Reviewed medications and supplements Specialists: endocrine, nephrology, cardiology, neurology evidence of cognitive impairment HCM: orders placed as needed Assessment & Plan (01/08/2021 3:44 PM CDT): Reviewed [facility] & PHQ Screening PHQ-2 Total Score (If [...] psychiatry Assessment & Plan (08/18/2024 8:44 AM NUISANCE WILDLIFE TRAPPER): Chronic, stable. Does not report any stephanie [...] discussed. Assessment & Plan (07/14/2024 8:54 AM NUISANCE WILDLIFE TRAPPER): Following with psychiatry, recommend reaching out to [...] psychiatry Assessment & Plan (07/24/2023 1:50 PM NUISANCE WILDLIFE TRAPPER): Following with psychiatry Assessment & Plan (01/23/2023 [...] discussed. Assessment & Plan (08/09/2021 5:42 AM NUISANCE WILDLIFE TRAPPER): Following with psychiatry Assessment & Plan (08/07/2021 3:28 PM NUISANCE WILDLIFE TRAPPER): Chronic condition, switch to Haldol and has had multiple different problems including acute kidney failure in infectious process. Records not available at outside hospital-[place]. Confounded by delirium. Currently experiencing delirium will discontinue Haldol and return to Risperdal as previously taking. Risperdal was discontinued due to poorly-controlled diabetes. Monitor in 1 to 2 weeks. Assessment & Plan (07/03/2021 7:24 AM NUISANCE WILDLIFE TRAPPER): Following with psychiatry D/c risperidone, started on haldol Assessment & Plan (07/01/2021 9:16 PM NUISANCE WILDLIFE TRAPPER): Chronic, stable. +persistent auditory hallucinations Discontinue Risperdal [...] Reviewed all of those notes-primary care doctor, raftsman, recruiting team lead. The patient previously lived on her own and was observed to be hoarding. See additional problems-dementia. Evaluate again in 1 month after starting Risperdal. Iron deficiency anemia 04/02/2020 Assessment & Plan (05/06/2024 7:51 AM NUISANCE WILDLIFE TRAPPER): Recommend discussing IV iron with nephrology Assessment & Plan (10/02/2020 4:35 PM CDT): Continue iron Assessment & Plan (05/28/2020 1:51 PM NUISANCE WILDLIFE TRAPPER): Iron levels recently normalized, but still anemic, repeat today Assessment & Plan (04/16/2020 11:45 AM CDT): Recent iron within normal limits, H/H improving, continue supplementation until normalized Gastroesophageal reflux disease without esophagi tis 04/02/2020 Assessment & Plan (10/24/2024 10:57 AM CDT): continue protonix Following with GI Assessment & Plan (07/14/2024 8:56 AM NUISANCE WILDLIFE TRAPPER): Restart protonix Upcoming EGD Assessment & Plan (01/05/2024 10:40 PM CDT): -continue famotidine Assessment & Plan (10/02/2020 4:35 PM CDT): Continue omeprazole Assessment & Plan (07/24/2020 2:06 PM NUISANCE WILDLIFE TRAPPER): Recurrent symptoms off omeprazole, restart Assessment & Plan (05/28/2020 1:51 PM NUISANCE WILDLIFE TRAPPER): Iron levels recently normalized, but still anemic, repeat today Assessment & Plan (04/02/2020 1:26 PM CDT): Start PPI History of amputation of toe 01/19/2020 Assessment & Plan (01/08/2021 3:50 PM CDT): Stable Assessment & Plan (10/02/2020 4:35 PM CDT): Stable Assessment & Plan (04/30/2020 1:00 PM NUISANCE WILDLIFE TRAPPER): Stable Assessment & Plan (02/14/2020 5:15 PM [...] controlled Assessment & Plan (07/14/2024 2:32 PM NUISANCE WILDLIFE TRAPPER): Continue carvedilol, hydralazine Assessment & Plan (07/14/2024 8:51 AM NUISANCE WILDLIFE TRAPPER): BP controlled today off medication Daughter reports nephrology said could restart medication, is planning to restart coreg first and monitor blood pressure prior to restarting nifedipine/hydralazine Assessment & Plan (05/06/2024 7:48 AM NUISANCE WILDLIFE TRAPPER): BP controlled Continue nifedipine, hold prior to [...] HD. Most recent admission at [facility] with initiation of hydralazine and nifedipine in [...] amlodipine Assessment & Plan (08/03/2023 4:02 PM NUISANCE WILDLIFE TRAPPER): BP uncontrolled Start 5mg amlodipine Assessment & Plan (07/24/2023 1:49 PM NUISANCE WILDLIFE TRAPPER): Blood pressure borderline today off medications Assessment & Plan (01/23/2023 9:18 AM CDT): Blood pressure borderline low today, asymptomatic Checking labs Advised to decrease amlodipine to 5mg and monitor blood pressure Assessment & Plan (10/10/2022 10:50 AM CDT): Continue coreg 6.25mg twice a day & 40mg valsartan Assessment & Plan (08/14/2022 10:43 AM NUISANCE WILDLIFE TRAPPER): Blood pressure at goal, continue coreg 6.25mg twice a day Assessment & Plan (06/09/2022 3:32 PM NUISANCE WILDLIFE TRAPPER): Blood pressure at goal, continue coreg 3.125mg [...] day Assessment & Plan (08/05/2021 10:35 AM NUISANCE WILDLIFE TRAPPER): Blood pressure at goal Increase amlodipine to 10mg & d/c hydralazine per cardiology Assessment & Plan (05/28/2021 4:59 PM NUISANCE WILDLIFE TRAPPER): Blood pressure above goal, but previously within [...] lisinopril Assessment & Plan (08/28/2020 12:12 PM NUISANCE WILDLIFE TRAPPER): Blood pressure at goal Continue lisinopril Assessment & Plan (07/24/2020 2:05 PM NUISANCE WILDLIFE TRAPPER): Blood pressure at goal Continue lisinopril Assessment & Plan (05/28/2020 1:50 PM NUISANCE WILDLIFE TRAPPER): BP borderline Continue 10mg lisinopril Continue to monitor Assessment & Plan (04/30/2020 12:32 PM NUISANCE WILDLIFE TRAPPER): BP borderline Continue 10mg lisinopril Continue to [...] endocrine Assessment & Plan (07/14/2024 2:31 PM NUISANCE WILDLIFE TRAPPER): Controlled. Continue as per Endocrine and PCP Assessment & Plan (07/14/2024 8:50 AM NUISANCE WILDLIFE TRAPPER): Following with endocrine, reviewed note Holding insulin [...] +SSI Assessment & Plan (07/24/2023 1:49 PM NUISANCE WILDLIFE TRAPPER): Lab Results Component Value Date HGBA1C 8.1 [...] trulicity Assessment & Plan (08/14/2022 10:42 AM NUISANCE WILDLIFE TRAPPER): Following with endocrine Continue lantus, 12 units humalog TIDAC & 1.5mg trulicity Assessment & Plan (06/09/2022 3:32 PM NUISANCE WILDLIFE TRAPPER): Following with endocrine Home blood sugar at [...] for strict med oversight by family at [place] reviewed with daughter this admit. Assessment & [...] for strict med oversight by family at [place] reviewed with daughter this admit. Assessment & [...] and nephropathy. Med oversight by family at [place]. Assessment & Plan (09/14/2021 12:22 PM CDT): [...] as she had discussed this with outpatient certified nursing attendant - repeat A1c - resume home statin, not currently on feliciano due to kidney function Assessment & Plan (08/05/2021 10:35 AM NUISANCE WILDLIFE TRAPPER): Continue 15 units lantus twice a day Assessment & Plan (07/03/2021 7:24 AM NUISANCE WILDLIFE TRAPPER): Fasting blood sugar significantly improved Risperidone changed Continue current meds Continue to monitor Assessment & Plan (06/18/2021 11:22 AM NUISANCE WILDLIFE TRAPPER): Increase lantus to 60 units nightly, if blood sugar still above goal after 1 week split into 33 units twice a day Follow up with blood sugar via portal in 2 weeks Continue jardiance 25mg Continue trulicity 4.5mg weekly Assessment & Plan (05/28/2021 4:58 PM NUISANCE WILDLIFE TRAPPER): Increase lantus to 55 units nightly Continue [...] weekly Assessment & Plan (08/28/2020 1:00 PM NUISANCE WILDLIFE TRAPPER): DM Care Plan: Meds: Lantus - continue [...] recheck Assessment & Plan (07/24/2020 2:05 PM NUISANCE WILDLIFE TRAPPER): Formulary change / insurance, switched to trulicity. Will increase to 1.5mg Assessment & Plan (05/28/2020 1:50 PM NUISANCE WILDLIFE TRAPPER): Check a1c Barbara isn't checking blood sugar regularly, but when she is she has several >200 so I lean towards increasing if a1c>7 Assessment & Plan (04/30/2020 12:31 PM NUISANCE WILDLIFE TRAPPER): Blood sugar improved on 40 units basaglar [...] was in the room. Recently treated at [facility] for PNA with prolonged course of antibiotics: [...] was in the room. Recently treated at [facility] for PNA with prolonged course of antibiotics: [...] was in the room. Recently treated at [facility] for PNA with prolonged course of antibiotics: [...] was in the room. Recently treated at [facility] for PNA with prolonged course of antibiotics: [...] was in the room. Recently treated at [facility] for PNA with prolonged course of antibiotics: [...] was in the room. Recently treated at [facility] for PNA with prolonged course of antibiotics: [...] was in the room. Recently treated at [facility] for PNA with prolonged course of antibiotics: [...] was in the room. Recently treated at [facility] for PNA with prolonged course of antibiotics: [...] was in the room. Recently treated at [facility] for PNA with prolonged course of antibiotics: [...] was in the room. Recently treated at [facility] for PNA with prolonged course of antibiotics: [...] 11/10/2023 Assessment & Plan (08/14/2022 10:44 AM NUISANCE WILDLIFE TRAPPER): Continue eliquis Assessment & Plan (06/09/2022 3:36 PM NUISANCE WILDLIFE TRAPPER): Continue eliquis Assessment & Plan (04/02/2022 6:05 [...] 10/10/2022 Assessment & Plan (08/07/2021 3:30 PM NUISANCE WILDLIFE TRAPPER): Subacute, persistent, hospitalized recently. She is alert [...] Impression: Patient recently had MRI performed at [facility] which revealed acute osteomyelitis to the distal [...] 08/28/2020 Assessment & Plan (05/28/2020 1:52 PM NUISANCE WILDLIFE TRAPPER): Encouraged to follow up with wound clinic for reassessment Assessment & Plan (04/30/2020 12:31 PM NUISANCE WILDLIFE TRAPPER): Following with wound clinic Assessment & Plan [...] acute osteomyelitis on recent MRI performed at [facility]. She is being treated with antibiotic [...] nightly Assessment & Plan (08/14/2022 10:42 AM NUISANCE WILDLIFE TRAPPER): Continue lyrica 150mg nightly Assessment & Plan (06/09/2022 3:32 PM NUISANCE WILDLIFE TRAPPER): Continue lyrica 150mg nightly Assessment & Plan [...] status. Assessment & Plan (05/28/2021 4:58 PM NUISANCE WILDLIFE TRAPPER): Continue lyrica 150mg nightly Assessment & Plan [...] gabapentin Assessment & Plan (08/28/2020 1:00 PM NUISANCE WILDLIFE TRAPPER): On gabapentin Assessment & Plan (07/24/2020 2:05 PM NUISANCE WILDLIFE TRAPPER): Continue gabapentin Assessment & Plan (04/02/2020 1:22 [...] Description 12/26/2024 8:40 AM CDT Office Visit [facility] Endocrinology Metabolism and Lipid [facility] Medical Office Building [address], [address] [place] [address] Smith Gibbs MD Type 2 diabetes mellitus with chronic kidney disease on chronic dialysis, with long-term current use of insulin (HCC) (Primary Dx); Primary hypertension; Mixed hyperlipidemia; Diabetic polyneuropathy associated with type 2 diabetes mellitus (HCC); Type 2 diabetes mellitus with diabetic neuropathy, with long-term current use of insulin (HCC) 12/26/2024 Nurse Triage [facility] Primary Care at [address] [place] [address] Cherelle Corcoran MD 11/29/2024 3:30 PM CDT Office Visit [facility] Primary Care at [address] [phone] Cherelle Corcoran MD Multiple falls (Primary Dx); Hypertension associated with diabetes (HCC); Type 2 diabetes mellitus with diabetic neuropathy, with long-term current use of insulin (HCC); Chronic diastolic congestive heart failure (HCC); Acute pain of left shoulder 11/28/2024 Telephone [facility] Primary Care at [address] [phone] Cherelle Corcoran MD 11/25/2024 Orders Only [facility] [phone] Unknown, Notinfile 11/24/2024 Telephone [facility] Primary Care at [address] [phone] Cherelle Corcoran MD JOY Questions 11/21/2024 Orders Only [facility] [phone] Unknown, Notinfile 11/15/2024 Orders Only [facility] [phone] Unknown, Notinfile 11/14/2024 Orders Only [facility] [phone] Unknown, Notinfile 11/13/2024 Orders Only [facility] [phone] Unknown, Notinfile 11/07/2024 Telephone [facility] Nephrology at [address] [phone] Markie Ryan MD 11/07/2024 Telephone [facility] Primary Care at [address] [phone] Cherelle Corcoran MD Additional Services Or Orders 11/07/2024 Telephone [facility] Primary Care at [address] [phone] Cherelle Corcoran MD 11/07/2024 Telephone [facility] Medical [facility] Primary Care at [address] [phone] Cherelle Corcoran MD Appointment Request 11/01/2024 3:17 PM CDT - 11/05/2024 1:00 PM CDT Hospital Encounter [address] [address] Tahmina Palencia MD Medavaram, Atul, MD Al Furgani, Mahmud Mustafa, MD Hypertensive urgency (Primary Dx); Acute cystitis without hematuria; Generalized weakness; Peripheral vertigo, unspecified laterality; Lightheadedness; ESRD on hemodialysis (HCC); Anemia of renal disease; Hyponatremia Discharge Disposition: Discharge to home, home health skilled care 11/01/2024 Nurse Triage [facility] Primary Care at [address] [phone] Cherelle Corcoran MD 10/31/2024 8:53 AM CDT - 10/31/2024 11:59 PM CDT Hospital Encounter [facility] Office Building [address] [place] [phone] UTI symptoms Discharge Disposition: Discharge to home or self care 10/31/2024 Results Follow-Up [facility] Primary Care at [address] [phone] Cherelle Corcoran MD Urinalysis reflex to microscopic and culture Urine, clean voided, Urinalysis, microscopic only 10/25/2024 Results Follow-Up [facility] Primary Care at [address] [phone] Cherelle Corcoran MD XR Chest PA Lateral 2 Views 10/24/2024 11:45 AM CDT - 10/24/2024 11:59 PM CDT Hospital Encounter [facility] MOB 1 DIAG IMG [address] [place] [address] SOB (shortness of breath) Discharge Disposition: Discharge to home or self care 10/24/2024 11:35 AM CDT Lab [facility] Medical Office Building [address] [place] [address] 10/24/2024 10:30 AM CDT Office Visit [facility] Primary Care at [address] [place] [phone] Cherelle Corcoran MD Encounter for Medicare annual [...] behavioral disturbance (HCC); Parkinsonism, unspecified Parkinsonism type ([facility]); Schizoaffective disorder, bipolar type (HCC); Chronic diastolic congestive heart failure (HCC); Gastroesophageal reflux disease without esophagitis 10/18/2024 Orders Only [facility] Nephrology at [address] [place] [address] ProviderJoe MD 10/03/2024 Telephone [facility] Endocrinology Metabolism and Lipid [address] [place] [address] Medical Office Building [address], [address] [place] [address] Yoly Herrera RN Insulin dosing 10/03/2024 Telephone [facility] Primary Care at [address] [place] [phone] Cherelle Corcoran MD Medical Question/Miscellaneous from Last [...] materials from doctor or pharmacy Often 01/20/2024 [facility] Utilities Answer Date Recorded In the past 12 months has th e [employer], gas, oil, or water [employer] threatened to shut off services in your [...] answer 11/07/2024 How often do you attend [facility] or congregational services? Patient unable to answer [...] on file Legal Sex Female 9:03 AM NUISANCE WILDLIFE TRAPPER Gender Identity Female 02/08/2020 6:39 PM CDT [...] history exists Medical Devices Implanted Type Area Instrument Inspector Device Identifier Shelf Expiration Date Model / Serial / Lot [employer]neur Duramax Vascpak Safesheath D-Pro 15.5fr 24cm Kit Catheter [id number] - [id number] Implanted:Qty: 1 on 10/15/2023 at [facility] [employer] 10/19/2025 [id number] / / [id number] [employer]neur Duraflow Embosafe 15.5fr 24cm Basic 2 Lumen Kit Catheter [id number] - [id number] Implanted:Qty: 1 on 07/15/2024 by Edgardo Kauffman MD at [facility] [employer] 08/19/2026 [id number] / / [id number] Procedures Procedure Name Priority Date/Time Associated Diagnosis [...] EYE EXAM Routine 07/27/2024 12: 37 PM NUISANCE WILDLIFE TRAPPER COLONOSCOPY 03/01/2024 8:49 AM CDT DEXA AXIAL [...] was last reviewed 2021. Testing performed by: [address] [address] Blood 11/25/2024 12:5 8 PM CDT 11/25/2024 2:12 PM CDT us Notinfile Unknown LAB BLOOD ORDERABLES Final Res ult NILSA [address] [facility] Department [place] [address] * (ABNORMAL) Differential, auto (11/25/2024 12:58 PM CDT) Neutrophil abs 6.51(H) 1.50 - 6.50 K/cumm NILSA Comment:Testing performed by : [address] [address] Imm gran abs 0.05 0.00 - 0.10 K/cumm NILSA Comment:Testing performed by : [address] [address] Lymphocyte abs 2.37 0.80 - 3.30 K/cumm NILSA Comment:Testing performed by : [address] [address] Monocyte abs 0.70 0.20 - 0.80 K/cumm NILSA Comment:Testing performed by : [address] [address] Eosinophil abs 0.16 0.00 - 0.50 K/cumm NILSA Comment:Testing performed by : [address] [address] Basophil abs 0.04 0.00 - 0.10 K/cumm NILSA Comment:Testing performed by : [address] [id number] Neutrophil pct 66.3 % NILSA Comment: Interpretive Data Percent cell count reference ranges are not reported, since discordance with absolute values may lead to misinterpretation of CBC data. Current Interpretive Data was last revised on 2017. Testing performed by: [address] [address] Imm gran pct 0.5 % [facility] Comment: Interpretive Data Percent cell count reference ranges are not reported, since discordance with absolute values may lead to misinterpretation of CBC data. Current Interpretive Data was last revised on 2017. Testing performed by: [address] [address] Lymphocyte pct 24.1 % [facility] Comment: Interpretive Data Percent cell count reference ranges are not reported, since discordance with absolute values may lead to misinterpretation of CBC data. Current Interpretive Data was last revised on 2017. Testing performed by: [address] [address] Monocyte pct 7.1 % [facility] Comment: Interpretive Data Percent cell count reference ranges are not reported, since discordance with absolute values may lead to misinterpretation of CBC data. Current Interpretive Data was last revised on 2017. Testing performed by: [address] [address] Eosinophil pct 1.6 % [facility] Comment: Interpretive Data Percent cell count reference ranges are not reported, since discordance with absolute values may lead to misinterpretation of CBC data. Current Interpretive Data was last revised on 2017. Testing performed by: [address] [address] Basophil pct 0.4 % [facility] Comment: Interpretive Data Percent cell count reference ranges are not reported, since discordance with absolute values may lead to misinterpretation of CBC data. Current Interpretive Data was last revised on 2017. Testing performed by: [address] [address] Blood 11/25/2024 12:5 8 PM CDT 11/25/2024 2:12 PM CDT us Notinfile Unknown LAB BLOOD ORDERABLES Final Res ult NILSA 4500 [facility] Department [place] [address] * (ABNORMAL) CBC with auto differential (11/25/2024 12:58 PM CDT) WBC 9.83 3.80 - 9.90 K/cumm NILSA Comment:Testing performed by : [address] [address] Hgb 9.9(L) 11.9 - 15.5 g/dL NILSA Comment:Testing performed by : [address] [address] Hct 31.1(L) 35.6 - 45.5 % NILSA Comment:Testing performed by : [address] [address] Plt 351 150 - 400 K/cumm NILSA Comment:Testing performed by : [address] [address] MPV 10.0 9.1 - 12.3 fL NILSA Comment:Testing performed by : [address] [address] RBC 3.07(L) 3.90 - 5.20 M/cumm NILSA Comment:Testing performed by : [address] [address] MCV 101.3(H) 81.3 - 96.4 fL NILSA Comment:Testing performed by : [address] [address] MCH 32.2 27.1 - 33.3 pg NILSA Comment:Testing performed by : [address] [address] MCHC 31.8(L) 32.3 - 35.7 g/dL NILSA Comment:Testing performed by : [address] [address] RDW CV 15.7(H) 11.1 - 14.9 % NILSA Comment:Testing performed by : [address] [address] RDW SD 56.9(H) 35.7 - 48.1 fL NILSA Comment:Testing performed by : [address] [address] NRBC abs 0.02(H) 0.00 - 0.01 K/cumm NILSA RODRIGES Comment:Testing performed by : [address] [address] Blood 11/25/2024 12:5 8 PM CDT 11/25/2024 2:12 PM CDT us Notinfile Unknown LAB BLOOD ORDERABLES Final Res ult NILSA RODRIGES [facility]0 [facility] Department [place] [address] * (ABNORMAL) Comprehensive metabolic panel (11/25/2024 12:58 PM CDT) Sodium 133(L) 135 - 145 mmol/L NILSA RODRIGES Comment:Testing performed by : [address] [address] Potassium, pl 4.4 3.3 - 4.9 mmol/L NILSA RODRIGES Comment:Testing performed by : [address] [address] Chloride 94(L) 97 - 110 mmol/L NILSA Comment:Testing performed by : [address] [address] CO2 23 22 - 32 mmol/L NILSA Comment:Testing performed by : [address] [address] Anion gap 16(H) 2 - 15 mmol/L NILSA Comment:Testing performed by : [address] [address] BUN 53(H) 6 - 25 mg/dL NILSA Comment:Testing performed by : [address] [address] Creatinine 5.90(H) 0.60 - 1.10 mg/dL NILSA RODRIGES Comment:Testing performed by : [address] [place] [address] Glucose 139 70 - 199 mg/dL NILSA [...] last revised 2022. Testing performed by: [address] [address] Calcium 9.4 8.5 - 10.3 mg/dL NILSA Comment:Testing performed by : [address] [address] Bilirubin, total <0.2 0.1 - 1.2 mg/dL NILSA Comment:Testing performed by : [address] [address] Protein, pl 7.5 6.5 - 8.5 g/dL NILSA Comment:Testing performed by : [address] [address] Albumin 4.0 3.5 - 5.0 g/dL NILSA Comment:Testing performed by : [address] [address] Alk phos 108 40 - 130 Units/L NILSA Comment:Testing performed by : [address] [address] ALT 9 7 - 45 Units/L NILSA Comment:Testing performed by : [address] [address] AST 11 10 - 45 Units/L NILSA Comment:Testing performed by : [address] [address] Blood 11/25/2024 12:5 8 PM CDT 11/25/2024 2:12 PM CDT us Notinfile Unknown LAB BLOOD ORDERABLES Final Res ult Performing Organization Address [facility] Co de Phone Number NILSA [address] [facility] [place] [address] * (ABNORMAL) eGFR (11/21/2024 4:15 AM CDT) [...] was last reviewed 2021. Testing performed by: [address] [address] Blood 11/21/2024 4:15 AM CDT 11/21/2024 7:54 AM CDT us Notinfile Unknown LAB BLOOD ORDERABLES Final Res ult Performing Organization Address City/[facility] Co de Phone Number NILSA 4500 [facility] [place] [address] * Differential, auto (11/21/2024 4:15 AM CDT) Neutrophil abs 6.24 1.50 - 6.50 K/cumm NILSA Comment:Testing performed by : [address] [address] Imm gran abs 0.06 0.00 - 0.10 K/cumm [facility] Comment:Testing performed by : [address], [place]., [address] Lymphocyte abs 2.12 0.80 - 3.30 K/cumm [facility] Comment:Testing performed by : [address], [place]., [address] Monocyte abs 0.70 0.20 - 0.80 K/cumm [facility] Comment:Testing performed by : [address], [place]., [address] Eosinophil abs 0.13 0.00 - 0.50 K/cumm [facility] Comment:Testing performed by : [address], [place]., [address] Basophil abs 0.04 0.00 - 0.10 K/cumm [facility] Comment:Testing performed by : [address] [address] Neutrophil pct 67.3 % [facility] Comment: Interpretive Data Percent cell count reference ranges are not reported, since discordance with absolute values may lead to misinterpretation of CBC data. Current Interpretive Data was last revised on 2017. Testing performed by: [address] [address] Imm gran pct 0.6 % [facility] Comment: Interpretive Data Percent cell count reference ranges are not reported, since discordance with absolute values may lead to misinterpretation of CBC data. Current Interpretive Data was last revised on 2017. Testing performed by: [address] [address] Lymphocyte pct 22.8 % [facility] Comment: Interpretive Data Percent cell count reference ranges are not reported, since discordance with absolute values may lead to misinterpretation of CBC data. Current Interpretive Data was last revised on 2017. Testing performed by: [address] [address] Monocyte pct 7.5 % [facility] Comment: Interpretive Data Percent cell count reference ranges are not reported, since discordance with absolute values may lead to misinterpretation of CBC data. Current Interpretive Data was last revised on 2017. Testing performed by: [address] [address] Eosinophil pct 1.4 % NILSA RODRIGES Comment: Interpretive Data Percent cell count reference ranges are not reported, since discordance with absolute values may lead to misinterpretation of CBC data. Current Interpretive Data was last revised on 2017. Testing performed by: [address] [address] Basophil pct 0.4 % NILSA RODRIGES Comment: Interpretive Data Percent cell count reference ranges are not reported, since discordance with absolute values may lead to misinterpretation of CBC data. Current Interpretive Data was last revised on 2017. Testing performed by: [address] [address] Blood 11/21/2024 4:15 AM CDT 11/21/2024 7:54 AM CDT us Notinfile Unknown LAB BLOOD ORDERABLES Final Res ult NILSA [address] Department [place] [address] * (ABNORMAL) CBC with auto differential (11/21/2024 4:15 AM CDT) WBC 9.29 3.80 - 9.90 K/cumm NILSA RODRIGES Comment:Testing performed by : [address] [address] Hgb 8.9(L) 11.9 - 15.5 g/dL NILSA RODRIGES Comment:Testing performed by : [address] [address] Hct 28.2(L) 35.6 - 45.5 % NILSA RODRIGES Comment:Testing performed by : [address] [address] Plt 246 150 - 400 K/cumm NILSA RODRIGES Comment:Testing performed by : [address] [address] MPV 11.4 9.1 - 12.3 fL NILSA RODRIGES Comment:Testing performed by : [address] [address] RBC 2.72(L) 3.90 - 5.20 M/cumm NILSA RODRIGES Comment:Testing performed by : [address] [address] MCV 103.7(H) 81.3 - 96.4 fL NILSA RODRIGES Comment:Testing performed by : [address] [address] MCH 32.7 27.1 - 33.3 pg NILSA Comment:Testing performed by : [address] [address] MCHC 31.6(L) 32.3 - 35.7 g/dL NILSA RODRIGES Comment:Testing performed by : [address] [address] RDW CV 16.0(H) 11.1 - 14.9 % NILSA Comment:Testing performed by : [address], [address] RDW SD 59.4(H) 35.7 - 48.1 fL NILSA Comment:Testing performed by : [address] [address] NRBC abs 0.00 0.00 - 0.01 K/cumm NILSA Comment:Testing performed by : [address], [address] Blood 11/21/2024 4:15 AM CDT 11/21/2024 7:54 AM CDT us Notinfile Unknown LAB BLOOD ORDERABLES Final Res ult NILSA 5413 [facility] Department [place] [address] * (ABNORMAL) Comprehensive metabolic panel (11/21/2024 4:15 AM CDT) Pathologist [facility] Sodium 135 135 - 145 mmol/L NILSA RODRIGES Comment:Testing performed by : [address], [address] Potassium, pl 4.6 3.3 - 4.9 mmol/L NILSA RODRIGES Comment:Testing performed by : [address], [place]., [address] Chloride 100 97 - 110 mmol/L NILSA Comment:Testing performed by : [address], [place]., [address] CO2 22 22 - 32 mmol/L NILSA Comment:Testing performed by : [address], [place]., [address] Anion gap 13 2 - 15 mmol/L NILSA Comment:Testing performed by : [address], [place]., [address] BUN 62(H) 6 - 25 mg/dL NILSA Comment:Testing performed by : [address], [place]., [address] Creatinine 5.57(H) 0.60 - 1.10 mg/dL NILSA Comment:Testing performed by : [address] [address] Glucose 148 70 - 199 mg/dL NILSA [...] last revised 2022. Testing performed by: [address] [address] Calcium 9.5 8.5 - 10.3 mg/dL NILSA Comment:Testing performed by : [address] [address] Bilirubin, total <0.2 0.1 - 1.2 mg/dL NILSA Comment:Testing performed by : [address], [place]., [address] Protein, pl 6.7 6.5 - 8.5 g/dL NILSA Comment:Testing performed by : [address] [address] Albumin 3.5 3.5 - 5.0 g/dL NILSA Comment:Testing performed by : [address] [address] Alk phos 120 40 - 130 Units/L NILSA RODRIGES Comment:Testing performed by : [address] [address] ALT 15 7 - 45 Units/L NILSA Comment:Testing performed by : [address] [address] AST 16 10 - 45 Units/L NILSA Comment:Testing performed by : [address] [address] Blood 11/21/2024 4:15 AM CDT 11/21/2024 7:54 AM CDT us Notinfile Unknown LAB BLOOD ORDERABLES Final Res ult Performing Organization Address City/[facility]/ZIP Co de Phone Number CARLOS ENRIQUE[address] [place] [address] * Hepatitis B core antibody, total Blood (11/15/2024 5:15 AM CDT) Pathologist [facility] Hep B core IgG/IgM Nonreactive Nonreactive NILSA Comment:Testing performed by : [facility], [address] [place] [address] Blood 11/15/2024 5:15 AM CDT 11/15/2024 11:24 AM CDT us Notinfile Unknown LAB MICROBIOLOGY - GENERAL ORD ERABLES Final Result Performing Organization Address City/[facility]/ZIP Co de Phone Number [address] [place] [address] * Hepatitis B Surface Antigen Blood (11/15/2024 5:15 AM CDT) Pathologist [facility] HepBsAg Nonreactive Nonreactive [facility] Blood 11/15/2024 5:15 AM CDT 11/15/2024 12:58 PM CDT us Notinfile Unknown LAB MICROBIOLOGY - GENERAL ORD ERABLES Final Result Performing Organization Address [facility] Co de Phone Number NILSA [address] [facility] [place] [address] * (ABNORMAL) eGFR (11/14/2024 1:00 PM CDT) Pathologist [facility] eGFR 8(L) >=60 mL/min/1. 73 m2 NILSA [...] last reviewed 2021. Testing performed by: [facility], [address] [place] [address]., [address] Blood 11/14/2024 1:00 PM CDT 11/14/2024 5:20 PM CDT us Notinfile Unknown LAB BLOOD ORDERABLES Final Res ult Performing Organization Address City/[facility]/ZIP Co de Phone Number NILSA [address] [facility] [place] [address] * Differential, auto (11/14/2024 1:00 PM CDT) Pathologist [facility] Neutrophil abs 6.30 1.50 - 6.50 K/cumm NILSA Comment:Testing performed by : [address], [place]., [address] Imm gran abs 0.05 0.00 - 0.10 K/cumm NILSA Comment:Testing performed by : [address], [place]., [address] Lymphocyte abs 2.83 0.80 - 3.30 K/cumm NILSA Comment:Testing performed by : [address], [place]., [address] Monocyte abs 0.71 0.20 - 0.80 K/cumm NILSA Comment:Testing performed by : [address], [place]., [address] Eosinophil abs 0.15 0.00 - 0.50 K/cumm NILSA Comment:Testing performed by : [address], [place]., [address] Basophil abs 0.04 0.00 - 0.10 K/cumm NILSA Comment:Testing performed by : [address] [address] Neutrophil pct 62.5 % [facility] Comment: Interpretive Data Percent cell count reference ranges are not reported, since discordance with absolute values may lead to misinterpretation of CBC data. Current Interpretive Data was last revised on 2017. Testing performed by: [address] [address] Imm gran pct 0.5 % NILSA Comment: Interpretive Data Percent cell count reference ranges are not reported, since discordance with absolute values may lead to misinterpretation of CBC data. Current Interpretive Data was last revised on 2017. Testing performed by: [address] [address] Lymphocyte pct 28.1 % [facility] Comment: Interpretive Data Percent cell count reference ranges are not reported, since discordance with absolute values may lead to misinterpretation of CBC data. Current Interpretive Data was last revised on 2017. Testing performed by: [address] [address] Monocyte pct 7.0 % [facility] Comment: Interpretive Data Percent cell count reference ranges are not reported, since discordance with absolute values may lead to misinterpretation of CBC data. Current Interpretive Data was last revised on 2017. Testing performed by: [address] [address] Eosinophil pct 1.5 % NILSA Comment: Interpretive Data Percent cell count reference ranges are not reported, since discordance with absolute values may lead to misinterpretation of CBC data. Current Interpretive Data was last revised on 2017. Testing performed by: [address] [address] Basophil pct 0.4 % NILSA Comment: Interpretive Data Percent cell count reference ranges are not reported, since discordance with absolute values may lead to misinterpretation of CBC data. Current Interpretive Data was last revised on 2017. Testing performed by: [address] [address] Blood 11/14/2024 1:00 PM CDT 11/14/2024 5:20 PM CDT us Notinfile Unknown LAB BLOOD ORDERABLES Final Res ult [facility] 132[address] [facility] Department of Laboratories [place], [place] [id number] * (ABNORMAL) CBC with auto differential (11/14/2024 1:00 PM CDT) WBC 10.08(H) 3.80 - 9.90 K/cumm NILSA Comment:Testing performed by : [address] [address] Hgb 9.4(L) 11.9 - 15.5 g/dL NILSA Comment:Testing performed by : [address] [address] Hct 30.5(L) 35.6 - 45.5 % NILSA Comment:Testing performed by : [address] [address] Plt 297 150 - 400 K/cumm NILSA Comment:Testing performed by : [address] [address] MPV 10.4 9.1 - 12.3 fL NILSA RODRIGES Comment:Testing performed by : [address] [address] RBC 2.84(L) 3.90 - 5.20 M/cumm NILSA RODRIGES Comment:Testing performed by : [address] [address] MCV 107.4(H) 81.3 - 96.4 fL NILSA RODRIGES Comment:Testing performed by : [address] [address] MCH 33.1 27.1 - 33.3 pg NILSA RODRIGES Comment:Testing performed by : [address] [address] MCHC 30.8(L) 32.3 - 35.7 g/dL NILSA RODRIGES Comment:Testing performed by : [address], [address] RDW CV 16.1(H) 11.1 - 14.9 % NILSA Comment:Testing performed by : [address] [address] RDW SD 58.9(H) 35.7 - 48.1 fL NILSA Comment:Testing performed by : [address] [address] NRBC abs 0.14(H) 0.00 - 0.01 K/cumm NILSA Comment:Testing performed by : [address] [address] Blood 11/14/2024 1:00 PM CDT 11/14/2024 5:20 PM CDT us Notinfile Unknown LAB BLOOD ORDERABLES Final Res ult NILSA RODRIGES 5[address] [facility] Department [place] [address] * Hepatitis B surface antibody [...] - GENERAL ORD ERABLES Final Result NILSA [facility] Department [place] [address] * (ABNORMAL) Comprehensive metabolic panel (11/14/2024 1:00 PM CDT) Sodium 138 135 - 145 mmol/L NILSA Comment:Testing performed by : [address] [address] Potassium, pl 3.9 3.3 - 4.9 mmol/L NILSA Comment:Testing performed by : [address] [address] Chloride 101 97 - 110 mmol/L NILSA Comment:Testing performed by : [address] [address] CO2 22 22 - 32 mmol/L NILSA Comment:Testing performed by : [address] [address] Anion gap 15 2 - 15 mmol/L NILSA Comment:Testing performed by : [address] [address] BUN 52(H) 6 - 25 mg/dL NILSA Comment:Testing performed by : [address] [address] Creatinine 5.47(H) 0.60 - 1.10 mg/dL NILSA Comment:Testing performed by : [address] [address] Glucose 136 70 - 199 mg/dL NILSA [...] last revised 2022. Testing performed by: [address] [address] Calcium 9.8 8.5 - 10.3 mg/dL NILSA Comment:Testing performed by : [address] [address] Bilirubin, total 0.2 0.1 - 1.2 mg/dL NILSA Comment:Testing performed by : [address] [address] Protein, pl 7.5 6.5 - 8.5 g/dL NILSA Comment:Testing performed by : [address] [address] Albumin 3.9 3.5 - 5.0 g/dL NILSA Comment:Testing performed by : [address] [address] Alk phos 128 40 - 130 Units/L NILSA Comment:Testing performed by : [address] [address] ALT 24 7 - 45 Units/L [facility] Comment:Testing performed by : [address] [address] AST 18 10 - 45 Units/L NILSA Comment:Testing performed by : [address] [address] Blood 11/14/2024 1:00 PM CDT 11/14/2024 5:20 PM CDT us Notinfile Unknown LAB BLOOD ORDERABLES Final Res ult Performing Organization Address [facility] Co de Phone Number NILSA 0978 [facility] [address] [address] * (ABNORMAL) eGFR (11/13/2024 5:35 AM CDT) [...] was last reviewed 2021. Testing performed by: [address] [address] Blood 11/13/2024 5:35 AM CDT 11/13/2024 8:55 AM CDT us Notinfile Unknown LAB BLOOD ORDERABLES Final Res ult Performing Organization Address [facility]/ZIP Co de Phone Number NILSA 1322 [facility] [address] [employer] [address] [employer] [place], [place] [id number] * (ABNORMAL) CBC with auto differential (11/13/2024 5:35 AM CDT) WBC 9.10 3.80 - 9.90 K/cumm NILSA Comment:Testing performed by : [address] [address] Hgb 8.9(L) 11.9 - 15.5 g/dL NILSA Comment:Testing performed by : [address] [address] Hct 28.4(L) 35.6 - 45.5 % [facility] Comment:Testing performed by : [address] [address] Plt 270 150 - 400 K/cumm NILSA Comment:Testing performed by : [address] [address] MPV 10.3 9.1 - 12.3 fL NILSA Comment:Testing performed by : [address] [address] RBC 2.70(L) 3.90 - 5.20 M/cumm NILSA Comment:Testing performed by : [address] [address] MCV 105.2(H) 81.3 - 96.4 fL NILSA Comment:Testing performed by : [address] [address] MCH 33.0 27.1 - 33.3 pg [facility] Comment:Testing performed by : [address] [address] MCHC 31.3(L) 32.3 - 35.7 g/dL NILSA Comment:Testing performed by : [address] [address] RDW CV 15.9(H) 11.1 - 14.9 % NILSA Comment:Testing performed by : [address] [address] RDW SD 57.1(H) 35.7 - 48.1 fL NILSA Comment:Testing performed by : [address] [address] NRBC abs 0.33(H) 0.00 - 0.01 K/cumm NILSA Comment:Testing performed by : [address] [address] Blood 11/13/2024 5:35 AM CDT 11/13/2024 8:55 AM CDT us Notinfile Unknown LAB BLOOD ORDERABLES Final Res ult NILSA RODRIGES 2410 [facility] Department [place] [address] * (ABNORMAL) Manual Differential (11/13/2024 5:35 AM CDT) Differential Manual NILSA Comment:Testing performed by : [address] [address] Cells Counted 100 NILSA Comment:Testing performed by : [address] [address] Neutrophil abs 5.46 1.50 - 6.50 K/cumm NILSA Comment:Testing performed by : [address] [address] Lymphocyte abs 2.73 0.80 - 3.30 K/cumm NILSA Comment:Testing performed by : [address] [address] Monocyte abs 0.82(H) 0.20 - 0.80 K/cumm NILSA Comment:Testing performed by : [address] [address] Eosinophil abs 0.09 0.00 - 0.50 K/cumm NILSA Comment:Testing performed by : [address] [address] Neutrophil pct 60.0 % NILSA Comment: Interpretive Data Percent cell count reference ranges are not reported, since discordance with absolute values may lead to misinterpretation of CBC data. Current Interpretive Data was last revised on 2017. Testing performed by: [address] [address] Lymphocyte pct 30.0 % NILSA Comment: Interpretive Data Percent cell count reference ranges are not reported, since discordance with absolute values may lead to misinterpretation of CBC data. Current Interpretive Data was last revised on 2017. Testing performed by: [address] [address] Monocyte pct 9.0 % NILSA Comment: Interpretive Data Percent cell count reference ranges are not reported, since discordance with absolute values may lead to misinterpretation of CBC data. Current Interpretive Data was last revised on 2017. Testing performed by: [address] [address] Eosinophil pct 1.0 % NILSA Comment: Interpretive Data Percent cell count reference ranges are not reported, since discordance with absolute values may lead to misinterpretation of CBC data. Current Interpretive Data was last revised on 2017. Testing performed by: [address] [address] RBC morphology Present(A) NILSA Comment:Testing performed by : [address] [address] Anisocytosis Moderate(A ) NILSA Comment:Testing performed by : [address] [address] Macrocytes 8-15/HPF(A ) NILSA Comment:Testing performed by : [address] [address] Schistocytes 1-2/HPF(A) NILSA Comment:Testing performed by : [address] [address] Platelet clumping Present(A) NILSA Comment:Testing performed by : [address] [address] Blood 11/13/2024 5:35 AM CDT 11/13/2024 8:55 AM CDT us Notinfile Unknown LAB BLOOD ORDERABLES Final Res ult NILSA 2080 [facility] Department of Laboratories [place], [place] [id number] * (ABNORMAL) Comprehensive metabolic panel (11/13/2024 5:35 AM CDT) Sodium 139 135 - 145 mmol/L NILSA Comment:Testing performed by : [address] [address] Potassium, pl 4.2 3.3 - 4.9 mmol/L [facility] Comment:Testing performed by : [address] [address] Chloride 102 97 - 110 mmol/L [facility] Comment:Testing performed by : [address], [place]., [address] CO2 25 22 - 32 mmol/L [facility] Comment:Testing performed by : [address] [address] [address] Anion gap 12 2 - 15 mmol/L [facility] Comment:Testing performed by : [address] [address] BUN 30(H) 6 - 25 mg/dL [facility] Comment:Testing performed by : [address] [address] Creatinine 4.07(H) 0.60 - 1.10 mg/dL [facility] Comment:Testing performed by : [address] [address] Glucose 144 70 - 199 mg/dL [facility] Comment: Interpretive Data Fasting glucose [...] last revised 2022. Testing performed by: [address] [address] Calcium 9.4 8.5 - 10.3 mg/dL [facility] Comment:Testing performed by : [address] [address] Bilirubin, total 0.2 0.1 - 1.2 mg/dL [facility] Comment:Testing performed by : [address] [address] Protein, pl 7.0 6.5 - 8.5 g/dL [facility] Comment:Testing performed by : [address] [address] Albumin 3.7 3.5 - 5.0 g/dL [facility] Comment:Testing performed by : [address] [address] Alk phos 127 40 - 130 Units/L [facility] Comment:Testing performed by : [address] [address] ALT 21 7 - 45 Units/L [facility] Comment:Testing performed by : [address] [address] AST 22 10 - 45 Units/L [facility] Comment:Testing performed by : [address] [address] Blood 11/13/2024 5:35 AM CDT 11/13/2024 8:55 AM CDT us Notinfile Unknown LAB BLOOD ORDERABLES Final Res ult Performing Organization Address City/[facility]/ZIP Co de Phone Number [address] [place] [address] * POCT glucose (11/05/2024 11:49 AM CDT) [facility] Glucose, POC 187 70 - 199 mg/dL Glucose comment 1 RN/MD Notified [facility] Blood 11/05/2024 11:4 9 AM CDT 11/05/2024 11:49 AM CDT Juan J Heller MD LAB POCT ORDERABLES - DEVICE Final Result Performing Organization Address City/[facility]/ZIP Co de Phone Number [address] [place] [address] * (ABNORMAL) eGFR (11/05/2024 6:52 AM CDT) [facility] eGFR 8(L) >=60 mL/min/1. 73 m2 [...] 11/05/2024 7:12 AM CDT Brad Sebastien Smallwood MATRIX BATH ATTENDANT LAB BLOOD ORDERABLES Fin al Result [place] [id number] [facility] Department [place] [address] * Differential, auto (11/05/2024 6:52 AM CDT) Neutrophil abs 5.74 1.50 - 6.50 K/cumm Imm gran abs 0.05 0.00 - 0.10 K/cumm [facility] Lymphocyte abs 1.98 0.80 - 3.30 K/cumm [facility] Monocyte abs 0.73 0.20 - 0.80 K/cumm [facility] Eosinophil abs 0.13 0.00 - 0.50 K/cumm [facility] Basophil abs 0.03 0.00 - 0.10 K/cumm [facility] Neutrophil pct 66.3 % [facility] Comment: Interpretive Data Percent cell count reference ranges are not reported, since discordance with absolute values may lead to misinterpretation of CBC data. Current Interpretive Data was last revised on 2017. Imm gran pct 0.6 % [facility] Comment: Interpretive Data Percent cell count reference ranges are not reported, since discordance with absolute values may lead to misinterpretation of CBC data. Current Interpretive Data was last revised on 2017. Lymphocyte pct 22.9 % [facility] Comment: Interpretive Data Percent cell count reference ranges are not reported, since discordance with absolute values may lead to misinterpretation of CBC data. Current Interpretive Data was last revised on 2017. Monocyte pct 8.4 % [facility] Comment: Interpretive Data Percent cell count reference ranges are not reported, since discordance with absolute values may lead to misinterpretation of CBC data. Current Interpretive Data was last revised on 2017. Eosinophil pct 1.5 % [facility] Comment: Interpretive Data Percent cell count reference ranges are not reported, since discordance with absolute values may lead to misinterpretation of CBC data. Current Interpretive Data was last revised on 2017. Basophil pct 0.3 % [facility] Comment: Interpretive Data Percent cell count reference ranges are not reported, since discordance with absolute values may lead to misinterpretation of CBC data. Current Interpretive Data was last revised on 2017. Blood 11/05/2024 6:52 AM CDT 11/05/2024 7:12 AM CDT us Brad Sebastien Smallwood NP LAB BLOOD ORDERABLES Fin al Result [facility] [address] [facility] Department [place] [address] * (ABNORMAL) CBC with auto differential (11/05/2024 6:52 AM CDT) Pathologist [facility] WBC 8.66 3.80 - 9.90 K/cumm Hgb 8.6(L) 11.9 - 15.5 g/dL [facility] Hct 26.6(L) 35.6 - 45.5 % [facility] Plt 215 150 - 400 K/cumm [facility] MPV 10.4 9.1 - 12.3 fL [facility] RBC 2.60(L) 3.90 - 5.20 M/cumm [facility] MCV 102.3(H) 81.3 - 96.4 fL [facility] MCH 33.1 27.1 - 33.3 pg [facility] MCHC 32.3 32.3 - 35.7 g/dL [facility] RDW CV 13.8 11.1 - 14.9 % [facility] RDW SD 51.4(H) 35.7 - 48.1 fL [facility] NRBC abs 0.09(H) 0.00 - 0.01 K/cumm [facility] Blood 11/05/2024 6:52 AM CDT 11/05/2024 7:12 AM CDT us Brad Sebastien Smallwood MATRIX BATH ATTENDANT LAB BLOOD ORDERABLES Fin al Result [facility] [address] [facility] Department [place] [address] * (ABNORMAL) Basic metabolic panel (11/05/2024 6:52 AM CDT) Sodium 135 135 - 145 mmol/L Potassium, pl 4.5 3.3 - 4.9 mmol/L [facility] Chloride 96(L) 97 - 110 mmol/L [facility] CO2 28 22 - 32 mmol/L [facility] Anion gap 11 2 - 15 mmol/L [facility] BUN 34(H) 6 - 25 mg/dL [facility] Creatinine 5.23(H) 0.60 - 1.10 mg/dL [facility] Glucose 145 70 - 199 mg/dL [facility] Comment: Interpretive Data Fasting glucose [...] 2022. Calcium 9.0 8.5 - 10.3 mg/dL [facility] Blood 11/05/2024 6:52 AM CDT 11/05/2024 7:12 AM CDT Brad Smallwood NP LAB BLOOD ORDERABLES Fin al Result Performing Organization Address [facility] de Phone Number NILSA [address] [address] * (ABNORMAL) POCT glucose (11/04/2024 9:22 PM CDT) Glucose, POC 223(H) 70 - 199 mg/dL Blood 11/04/2024 9:22 PM CDT 11/04/2024 9:22 PM CDT Juan J Heller MD LAB POCT ORDERABLES - DEVICE Final Result Performing Organization Address [facility] de Phone Number [address] [place] [address] * (ABNORMAL) POCT glucose (11/04/2024 4:33 PM CDT) Glucose, POC 240(H) 70 - 199 mg/dL Glucose comment 1 Use This Result [facility] Glucose comment 2 RN/MD Notified [facility] Blood 11/04/2024 4:33 PM CDT 11/04/2024 4:33 PM CDT Juan J Heller MD LAB POCT ORDERABLES - DEVICE Final Result Performing Organization Address [facility] de Phone Number [address] [place] [address] * POCT glucose (11/04/2024 11:12 AM CDT) Glucose, POC 177 70 - 199 mg/dL Glucose comment 1 RN/MD Notified [facility] Blood 11/04/2024 11:1 2 AM CDT 11/04/2024 11:12 AM CDT Juan J Heller MD LAB POCT ORDERABLES - DEVICE Final Result Performing Organization Address City/[facility]/ZIP Co de Phone Number NILSA [address] [address] * POCT glucose (11/04/2024 9:37 AM CDT) Glucose, POC 138 70 - 199 mg/dL Blood 11/04/2024 9:37 AM CDT 11/04/2024 9:37 AM CDT Juan J Heller MD LAB POCT ORDERABLES - DEVICE Final Result Performing Organization Address [facility] Co de Phone Number NILSA [address] [address] * POCT glucose (11/04/2024 6:09 AM CDT) [facility] Glucose, POC 190 70 - 199 mg/dL Blood 11/04/2024 6:09 AM CDT 11/04/2024 6:09 AM CDT Juan J Heller MD LAB POCT ORDERABLES - DEVICE Final Result Performing Organization Address [facility] Co de Phone Number [address] [address] * (ABNORMAL) eGFR (11/04/2024 4:16 AM CDT) [facility] Signature eGFR 6(L) >=60 mL/min/1. 73 [...] 4:35 AM CDT us Brad Sebastien Smallwood MATRIX BATH ATTENDANT LAB BLOOD ORDERABLES Fin al Result [facility] [address] [facility] Department [place] [address] * Differential, auto (11/04/2024 4:16 AM CDT) Pathologist [facility] Neutrophil abs 4.99 1.50 - 6.50 K/cumm Imm gran abs 0.05 0.00 - 0.10 K/cumm [facility] Lymphocyte abs 2.56 0.80 - 3.30 K/cumm [facility] Monocyte abs 0.70 0.20 - 0.80 K/cumm [facility] Eosinophil abs 0.15 0.00 - 0.50 K/cumm [facility] Basophil abs 0.03 0.00 - 0.10 K/cumm [facility] Neutrophil pct 58.7 % [facility] Comment: Interpretive Data Percent cell count reference ranges are not reported, since discordance with absolute values may lead to misinterpretation of CBC data. Current Interpretive Data was last revised on 2017. Imm gran pct 0.6 % [facility] Comment: Interpretive Data Percent cell count reference ranges are not reported, since discordance with absolute values may lead to misinterpretation of CBC data. Current Interpretive Data was last revised on 2017. Lymphocyte pct 30.2 % [facility] Comment: Interpretive Data Percent cell count reference ranges are not reported, since discordance with absolute values may lead to misinterpretation of CBC data. Current Interpretive Data was last revised on 2017. Monocyte pct 8.3 % [facility] Comment: Interpretive Data Percent cell count reference ranges are not reported, since discordance with absolute values may lead to misinterpretation of CBC data. Current Interpretive Data was last revised on 2017. Eosinophil pct 1.8 % [facility] Comment: Interpretive Data Percent cell count reference ranges are not reported, since discordance with absolute values may lead to misinterpretation of CBC data. Current Interpretive Data was last revised on 2017. Basophil pct 0.4 % [facility] Comment: Interpretive Data Percent cell count reference ranges are not reported, since discordance with absolute values may lead to misinterpretation of CBC data. Current Interpretive Data was last revised on 2017. Blood 11/04/2024 4:16 AM CDT 11/04/2024 4:35 AM CDT us Brad Sebastien Smallwood MATRIX BATH ATTENDANT LAB BLOOD ORDERABLES Fin al Result [facility] [address] [facility] Department [place] [address] * (ABNORMAL) CBC with auto differential (11/04/2024 4:16 AM CDT) WBC 8.48 3.80 - 9.90 K/cumm Hgb 7.3(L) 11.9 - 15.5 g/dL [facility] Hct 22.2(L) 35.6 - 45.5 % [facility] Plt 196 150 - 400 K/cumm [facility] MPV 10.4 9.1 - 12.3 fL [facility] RBC 2.24(L) 3.90 - 5.20 M/cumm [facility] MCV 99.1(H) 81.3 - 96.4 fL [facility] MCH 32.6 27.1 - 33.3 pg [facility] MCHC 32.9 32.3 - 35.7 g/dL [facility] RDW CV 13.4 11.1 - 14.9 % [facility] RDW SD 48.3(H) 35.7 - 48.1 fL [facility] NRBC abs 0.02(H) 0.00 - 0.01 K/cumm [facility] Blood 11/04/2024 4:16 AM CDT 11/04/2024 4:35 AM CDT [facility] LAB BLOOD ORDERABLES Fin al Result Performing Organization Address [facility] Co de Phone Number NILSA [address] [place] [address] * (ABNORMAL) Basic metabolic panel (11/04/2024 4:16 AM CDT) [facility] Sodium 135 135 - 145 mmol/L Potassium, pl 4.7 3.3 - 4.9 mmol/L [facility] Chloride 95(L) 97 - 110 mmol/L [facility] CO2 25 22 - 32 mmol/L [facility] Anion gap 15 2 - 15 mmol/L [facility] BUN 57(H) 6 - 25 mg/dL [facility] Creatinine 6.58(H) 0.60 - 1.10 mg/dL [facility] Glucose 153 70 - 199 mg/dL [facility] Comment: Interpretive Data Fasting glucose [...] 2022. Calcium 8.3(L) 8.5 - 10.3 mg/dL [facility] Blood 11/04/2024 4:16 AM CDT 11/04/2024 4:35 AM CDT [facility] Tabernero Nbafin MATRIX BATH ATTENDANT LAB BLOOD ORDERABLES Fin al Result Performing Organization Address [facility] Co de Phone Number NILSA [address] [place] [address] * (ABNORMAL) POCT glucose (11/03/2024 8:27 PM CDT) Glucose, POC 222(H) 70 - 199 mg/dL Glucose comment 1 RN/MD Notified [facility] Blood 11/03/2024 8:27 PM CDT 11/03/2024 8:27 PM CDT Juan J Heller MD LAB POCT ORDERABLES - DEVICE Final Result Performing Organization Address [facility] de Phone Number [address] [address] * (ABNORMAL) POCT glucose (11/03/2024 3:45 PM CDT) Glucose, POC 217(H) 70 - 199 mg/dL Glucose comment 1 Use This Result [facility] Glucose comment 2 RN/ Notified [facility] Blood 11/03/2024 3:45 PM CDT 11/03/2024 3:45 PM CDT Juan J Heller MD LAB POCT ORDERABLES - DEVICE Final Result Performing Organization Address [facility] de Phone Number [address] [address] * MRI Brain WO Contrast (11/03/2024 1:17 [...] Hyperostosis frontalis interna. ORBITS: No acute abnormality. [place] ocular lenses replaced bilaterally. PARANASAL SINUSES AND MASTOIDS: Tiny focus of opacifying material in the dependent left sphenoid sinuses. Slight scattered fluid about the obabd-sxzrgyz-rezr-left mastoid air cells. Scattered fluid OTHER: No other significant finding. IMPRESSION: Within the limitations of patient motion artifact, no acute intracranial process with chronic findings as above. THIS IS AN ELECTRONICALLY VERIFIED FINAL REPORT 11/03/2024 1:26 PM - Electronically signed by Redd Hendrickson M.D. CHANDA T: Report ID: [id number] Reading Location: [id number] Procedure Note Redd Hendrickson MD - 11/03/2024 EXAM DESCRIPTION: MRI BRAIN WO CONTRAST REASON FOR STUDY: Altered mental status of unspecified duration. Noprovision of focal neurologic deficits. No provided history of trauma or inciting and/or aggravating events. No provided past medical or surgical history. TECHNIQUE: Multiplanar imaging includes non-contrasted T1, T2, FLAIR, and diffusion with ADC map sequences. Additional sequence(s) sensitive [email or web address]. Images stored on PACS. Patient motion artifact [...] Hyperostosis frontalis interna. ORBITS: No acute abnormality. [place] ocular lenses replaced bilaterally. PARANASAL SINUSES AND MASTOIDS: Tiny focus of opacifying material in the dependent left sphenoid sinuses. Slight scattered fluid about the sjjmz-ctwedrs-qpar-left mastoid air cells. Scattered fluid OTHER: No other significant finding. IMPRESSION: Within the limitations of patient motion artifact, no acute intracranial process with chronic findings as above. THIS IS AN ELECTRONICALLY VERIFIED FINAL REPORT 11/03/2024 1:26 PM - Electronically signed by Redd Hendrickson M.D. CHANDA T: Report ID: [id number] Reading Location: [id number] Juan J Heller MD IMG MRI PROCEDURES Final Result * (ABNORMAL) POCT glucose (11/03/2024 11:14 AM CDT) Glucose, POC 259(H) 70 - 199 mg/dL Glucose comment 1 Use This Result [facility] Glucose comment 2 RN/MD Notified [facility] Blood 11/03/2024 11:1 4 AM CDT 11/03/2024 11:14 AM CDT Juan J Heller MD LAB POCT ORDERABLES - DEVICE Final Result Performing Organization Address City/[facility] Co de Phone Number NILSA [address] [address] * POCT glucose (11/03/2024 7:17 AM CDT) Glucose, POC 139 70 - 199 mg/dL Glucose comment 1 Use This Result [facility] Glucose comment 2 RN/MD Notified [facility] Blood 11/03/2024 7:17 AM CDT 11/03/2024 7:17 AM CDT Juan J Heller MD LAB POCT ORDERABLES - DEVICE Final Result Performing Organization Address [facility] de Phone Number CARLOS ENRIQUE[address] [address] * (ABNORMAL) eGFR (11/03/2024 2:33 AM CDT) [facility] eGFR 10(L) >=60 mL/min/1. 73 m2 [...] 11/03/2024 3:06 AM CDT us Brad Ivismichael Cl MATRIX BATH ATTENDANT LAB BLOOD ORDERABLES Fin al Result NILSA [address] [facility] Department [place] [address] * Differential, auto (11/03/2024 2:33 AM CDT) Neutrophil abs 5.20 1.50 - 6.50 K/cumm Imm gran abs 0.03 0.00 - 0.10 K/cumm [facility] Lymphocyte abs 2.47 0.80 - 3.30 K/cumm [facility] Monocyte abs 0.66 0.20 - 0.80 K/cumm [facility] Eosinophil abs 0.14 0.00 - 0.50 K/cumm [facility] Basophil abs 0.04 0.00 - 0.10 K/cumm [facility] Neutrophil pct 60.9 % [facility] Comment: Interpretive Data Percent cell count reference ranges are not reported, since discordance with absolute values may lead to misinterpretation of CBC data. Current Interpretive Data was last revised on 2017. Imm gran pct 0.4 % [facility] Comment: Interpretive Data Percent cell count reference ranges are not reported, since discordance with absolute values may lead to misinterpretation of CBC data. Current Interpretive Data was last revised on 2017. Lymphocyte pct 28.9 % [facility] Comment: Interpretive Data Percent cell count reference ranges are not reported, since discordance with absolute values may lead to misinterpretation of CBC data. Current Interpretive Data was last revised on 2017. Monocyte pct 7.7 % [facility] Comment: Interpretive Data Percent cell count reference ranges are not reported, since discordance with absolute values may lead to misinterpretation of CBC data. Current Interpretive Data was last revised on 2017. Eosinophil pct 1.6 % [facility] Comment: Interpretive Data Percent cell count reference ranges are not reported, since discordance with absolute values may lead to misinterpretation of CBC data. Current Interpretive Data was last revised on 2017. Basophil pct 0.5 % [facility] Comment: Interpretive Data Percent cell count reference ranges are not reported, since discordance with absolute values may lead to misinterpretation of CBC data. Current Interpretive Data was last revised on 2017. Blood 11/03/2024 2:33 AM CDT 11/03/2024 3:03 AM CDT [facility] MATRIX BATH ATTENDANT LAB BLOOD ORDERABLES Fin al Result Performing Organization Address [facility] Co de Phone Number [facility] [address] [place] [address] * (ABNORMAL) CBC with auto differential (11/03/2024 2:33 AM CDT) WBC 8.54 3.80 - 9.90 K/cumm Hgb 7.4(L) 11.9 - 15.5 g/dL [facility] Hct 22.8(L) 35.6 - 45.5 % [facility] Plt 195 150 - 400 K/cumm [facility] MPV 10.8 9.1 - 12.3 fL [facility] RBC 2.25(L) 3.90 - 5.20 M/cumm [facility] MCV 101.3(H) 81.3 - 96.4 fL [facility] MCH 32.9 27.1 - 33.3 pg [facility] MCHC 32.5 32.3 - 35.7 g/dL [facility] RDW CV 13.3 11.1 - 14.9 % [facility] RDW SD 49.3(H) 35.7 - 48.1 fL [facility] NRBC abs 0.00 0.00 - 0.01 K/cumm [facility] Blood 11/03/2024 2:33 AM CDT 11/03/2024 3:03 AM CDT [employer] MATRIX BATH ATTENDANT LAB BLOOD ORDERABLES Fin al Result Performing Organization Address [facility] Co de Phone Number [address] [place] [address] * (ABNORMAL) Basic metabolic panel (11/03/2024 2:33 AM CDT) Sodium 135 135 - 145 mmol/L Potassium, pl 4.1 3.3 - 4.9 mmol/L [facility] Chloride 95(L) 97 - 110 mmol/L [facility] CO2 27 22 - 32 mmol/L [facility] Anion gap 13 2 - 15 mmol/L [facility] BUN 38(H) 6 - 25 mg/dL [facility] Creatinine 4.56(H) 0.60 - 1.10 mg/dL [facility] Glucose 131 70 - 199 mg/dL [facility] Comment: Interpretive Data Fasting glucose [...] 2022. Calcium 8.0(L) 8.5 - 10.3 mg/dL [facility] Blood 11/03/2024 2:33 AM CDT 11/03/2024 3:03 AM CDT us Brad Smallwood NP LAB BLOOD ORDERABLES Antonio al Result [facility] [address] [facility] Department [place] [address] * POCT glucose (11/02/2024 9:40 PM CDT) Pathologist [facility] Glucose, POC 157 70 - 199 mg/dL Glucose comment 1 RN/ Notified [facility] Blood 11/02/2024 9:40 PM CDT 11/02/2024 9:40 PM CDT us Juan J Heller MD LAB POCT ORDERABLES - DEVICE Final Result Performing Organization Address [facility] Co de Phone Number NILSA [address] [facility] [place] [address] * Ammonia (11/02/2024 6:56 PM CDT) Ammonia 24 <=50 mcmol/L Comment: Please note on 2023 the unit of measure changed from mcg/dL to mcmol/L. Current Interpretive Data was last revised on 2023. Blood 11/02/2024 6:56 PM CDT 11/02/2024 7:04 PM CDT Juan J Heller MD LAB BLOOD ORDERABLE S Final Result Performing Organization Address [facility] Co de Phone Number NILSA [address] [place] [address] * CT Head WO Contrast (11/02/2024 6:31 [...] Salvador Bronson M.D. KT T: Report ID: [id number] Reading Location: [id number] Procedure Note Salvador Bronson MD - 11/02/2024 [...] Salvador Bronson M.D. KT T: Report ID: [id number] Reading Location: [id number] Juan J Heller MD IM CT PROCEDURES F inal Result * (ABNORMAL) POC Blood Gas and Chemistries, Arterial - (11/02/2024 6:17 PM CDT) pH, art POC 7.45 7.35 - 7.45 pCO2, art POC 40 35 - 45 mmHg [facility] pO2, art POC 95 83 - 108 mmHg [facility] HCO3, art (Calc) POC 28 20 - 30 mmol/L [facility] Base excess, art POC 4 mmol/L [facility] Comment: Interpretive Data No reference range established. Current interpretive data was last revised 2020. O2 Sat, art (Calc) POC 95 94 - 98 % [facility] Oxy Hgb, art POC 95.4(H) 90.0 - 95.0 % [facility] Met Hgb, art POC 0.0 0.0 - 1.9 % [facility] Carboxy Hgb, art POC 0.0 0.0 - 2.9 % [facility] Hemoglobin, art POC 8.8(L) 11.9 - 15.5 g/dL [facility] Blood 11/02/2024 6:17 PM CDT 11/02/2024 6:17 PM CDT Juan J Heller MD LAB POCT ORDERABLES - DEVICE Final Result Performing Organization Address City/[facility] Co de Phone Number [address] [place] [address] * POCT glucose (11/02/2024 5:13 PM CDT) Glucose, POC 150 70 - 199 mg/dL Glucose comment 1 RN/MD Notified [facility] Blood 11/02/2024 5:13 PM CDT 11/02/2024 5:13 PM CDT Juan J Heller MD LAB POCT ORDERABLES - DEVICE Final Result Performing Organization Address [facility] Co de Phone Number [address] [place] [address] * POCT glucose (11/02/2024 12:32 PM CDT) Glucose, POC 173 70 - 199 mg/dL Glucose comment 1 RN/MD Notified [facility] Blood 11/02/2024 12:3 2 PM CDT 11/02/2024 12:32 PM CDT Juan J Heller MD LAB POCT ORDERABLES - DEVICE Final Result Performing Organization Address City/[facility] Co de Phone Number [address] [place] [address] * POCT glucose (11/02/2024 7:50 AM CDT) Glucose, POC 184 70 - 199 mg/dL Glucose comment 1 RN/MD Notified [facility] Blood 11/02/2024 7:50 AM CDT 11/02/2024 7:50 AM CDT Juan J Heller MD LAB POCT ORDERABLES - DEVICE Final Result Performing Organization Address [facility] Co de Phone Number [address] [address] * Hepatitis B surface antibody (immune status) [...] mIUnits/m L [facility] Blood 11/02/2024 7:14 AM CDT 11/02/2024 7:32 AM CDT Rohan Funes MD LAB MICROBIOLOGY - GENERAL ORDERABLES Final Result Performing Organization Address [facility] Co de Phone Number [address] [place] [address] * Hepatitis B Surface Antigen Blood (11/02/2024 7:14 AM CDT) HepBsAg Nonreactive Nonreactive Blood 11/02/2024 7:14 AM CDT 11/02/2024 7:32 AM CDT Rohan Funes MD LAB MICROBIOLOGY - GENERAL ORDERABLES Final Result Performing Organization Address [facility] Co de Phone Number [address] [place] [address] * (ABNORMAL) eGFR (11/02/2024 3:48 AM CDT) [facility] eGFR 8(L) >=60 mL/min/1. 73 m2 [...] ORDERABLES Fin al Result NILSA RODRIGES [address] [facility] [place] [address] * Differential, auto (11/02/2024 3:48 AM CDT) [facility] Neutrophil abs 5.44 1.50 - 6.50 K/cumm Imm gran abs 0.03 0.00 - 0.10 K/cumm [facility] Lymphocyte abs 2.16 0.80 - 3.30 K/cumm [facility] Monocyte abs 0.62 0.20 - 0.80 K/cumm [facility] Eosinophil abs 0.12 0.00 - 0.50 K/cumm [facility] Basophil abs 0.02 0.00 - 0.10 K/cumm [facility] Neutrophil pct 64.9 % [facility] Comment: Interpretive Data Percent cell count reference ranges are not reported, since discordance with absolute values may lead to misinterpretation of CBC data. Current Interpretive Data was last revised on 2017. Imm gran pct 0.4 % [facility] Comment: Interpretive Data Percent cell count reference ranges are not reported, since discordance with absolute values may lead to misinterpretation of CBC data. Current Interpretive Data was last revised on 2017. Lymphocyte pct 25.7 % [facility] Comment: Interpretive Data Percent cell count reference ranges are not reported, since discordance with absolute values may lead to misinterpretation of CBC data. Current Interpretive Data was last revised on 2017. Monocyte pct 7.4 % [facility] Comment: Interpretive Data Percent cell count reference ranges are not reported, since discordance with absolute values may lead to misinterpretation of CBC data. Current Interpretive Data was last revised on 2017. Eosinophil pct 1.4 % [facility] Comment: Interpretive Data Percent cell count reference ranges are not reported, since discordance with absolute values may lead to misinterpretation of CBC data. Current Interpretive Data was last revised on 2017. Basophil pct 0.2 % [facility] Comment: Interpretive Data Percent cell count reference ranges are not reported, since discordance with absolute values may lead to misinterpretation of CBC data. Current Interpretive Data was last revised on 2017. Blood 11/02/2024 3:48 AM CDT 11/02/2024 4:01 AM CDT us Brad Sebastien Smallwood MATRIX BATH ATTENDANT LAB BLOOD ORDERABLES Fin al Result [facility] [address] [facility] Department [place] [address] * (ABNORMAL) CBC with auto differential (11/02/2024 3:48 AM CDT) Pathologist [facility] WBC 8.39 3.80 - 9.90 K/cumm Hgb 7.2(L) 11.9 - 15.5 g/dL [facility] Hct 22.3(L) 35.6 - 45.5 % [facility] Plt 186 150 - 400 K/cumm [facility] MPV 10.9 9.1 - 12.3 fL [facility] RBC 2.20(L) 3.90 - 5.20 M/cumm [facility] MCV 101.4(H) 81.3 - 96.4 fL [facility] MCH 32.7 27.1 - 33.3 pg [facility] MCHC 32.3 32.3 - 35.7 g/dL [facility] RDW CV 13.5 11.1 - 14.9 % [facility] RDW SD 49.7(H) 35.7 - 48.1 fL [facility] NRBC abs 0.00 0.00 - 0.01 K/cumm [facility] Blood 11/02/2024 3:48 AM CDT 11/02/2024 4:01 AM CDT [facility] MATRIX BATH ATTENDANT LAB BLOOD ORDERABLES Fin al Result Performing Organization Address [facility] de Phone Number [address] [place] [address] * Folate (11/02/2024 3:48 AM CDT) [facility] Folic acid 7.0 >=5.0 ng/mL Blood 11/02/2024 3:48 AM CDT 11/02/2024 4:01 AM CDT [facility] MATRIX BATH ATTENDANT LAB BLOOD ORDERABLES Fin al Result Performing Organization Address [facility] de Phone Number [address] [place] [address] * (ABNORMAL) Basic metabolic panel (11/02/2024 3:48 AM CDT) [facility] Sodium 135 135 - 145 mmol/L Potassium, pl 4.6 3.3 - 4.9 mmol/L [facility] Chloride 99 97 - 110 mmol/L [facility] CO2 24 22 - 32 mmol/L [facility] Anion gap 12 2 - 15 mmol/L [facility] BUN 64(H) 6 - 25 mg/dL [facility] Creatinine 5.43(H) 0.60 - 1.10 mg/dL [facility] Glucose 227(H) 70 - 199 mg/dL [facility] Comment: Interpretive Data Fasting glucose [...] 2022. Calcium 9.0 8.5 - 10.3 mg/dL [facility] Blood 11/02/2024 3:48 AM CDT 11/02/2024 4:01 AM CDT [facility] LAB BLOOD ORDERABLES Fin al Result Performing Organization Address City/[facility] Co de Phone Number [address] [place] [address] * Lactate (11/01/2024 10:05 PM CDT) [facility] Lactate 1.4 0.7 - 2.0 mmol/L Blood 11/01/2024 10:0 5 PM CDT 11/01/2024 10:15 PM CDT Brad [facility] LAB BLOOD ORDERABLES Fin al Result Performing Organization Address City/[facility] Co de Phone Number [address] [place] [address] * (ABNORMAL) Erythrocyte sedimentation rate (11/01/2024 10:05 PM CDT) Pathologist [facility] Erythrocyte sedimentation rate 43(H) 1 - 30 mm/hr Blood 11/01/2024 10:0 5 PM CDT 11/01/2024 10:15 PM CDT [facility] MATRIX BATH ATTENDANT LAB BLOOD ORDERABLES Fin al Result Performing Organization Address [facility] Co de Phone Number NILSA [address] [place] [address] * CRP (acute phase) (11/01/2024 10:05 PM CDT) CRP 3.6 <=10.0 mg/L Blood 11/01/2024 10:0 5 PM CDT 11/01/2024 10:15 PM CDT [facility] MATRIX BATH ATTENDANT LAB BLOOD ORDERABLES Fin al Result Performing Organization Address [facility] Co de Phone Number [address] [place] [address] * Phosphorus (11/01/2024 10:05 PM CDT) Phosphorus, pl 4.3 2.3 - 4.5 mg/dL Blood 11/01/2024 10:0 5 PM CDT 11/01/2024 10:15 PM CDT [facility] MATRIX BATH ATTENDANT LAB BLOOD ORDERABLES Fin al Result Performing Organization Address [facility] Co de Phone Number [address] [address] * Magnesium (11/01/2024 10:05 PM CDT) Magnesium 1.5 1.4 - 2.5 mg/dL Blood 11/01/2024 10:0 5 PM CDT 11/01/2024 10:15 PM CDT [facility] Rufin MATRIX BATH ATTENDANT LAB BLOOD ORDERABLES Fin al Result Performing Organization Address [facility] de Phone Number [address] [address] * (ABNORMAL) Hemoglobin A1c (11/01/2024 10:05 PM CDT) [facility] Hgb A1C 7.1(H) 4.0 - 5.6 % Estimated Average Glucose 157 mg/dL [facility] Comment: The ADA recommends reporting an estimated Average Glucose (eAG) with all Hemoglobin A1c results using the equation derived from a study of 507 normal and diabetic adults. Minority populations were underrepresented and children were not included. (Diabetes Care 31:9226-6838, 2008). The eAG is not equivalent to a fasting glucose. Blood 11/01/2024 10:0 5 PM CDT 11/01/2024 10:15 PM CDT [facility] MATRIX BATH ATTENDANT LAB BLOOD ORDERABLES Fin al Result Performing Organization Address [facility] de Phone Number [address] [address] * Vitamin B12 (11/01/2024 10:05 PM CDT) [facility] Vitamin B12 584 230 - 1,250 pg/mL Blood 11/01/2024 10:0 5 PM CDT 11/01/2024 10:15 PM CDT [facility] MATRIX BATH ATTENDANT LAB BLOOD ORDERABLES Fin al Result Performing Organization Address [facility] de Phone Number [address] [address] * (ABNORMAL) Lipid panel (11/01/2024 10:05 PM CDT) [facility] Cholesterol 98 30 - 199 mg/dL [...] last revised on 2018. Chol/HDL ratio 3 [facility] Blood 11/01/2024 10:0 5 PM CDT 11/01/2024 10:15 PM CDT us Brad Smallwood NP LAB BLOOD ORDERABLES Fin al Result Performing Organization Address [facility] Co de Phone Number [place] [phone] [facility] [place] [address] * (ABNORMAL) POCT glucose (11/01/2024 9:59 PM CDT) [facility] Glucose, POC 217(H) 70 - 199 mg/dL Glucose comment 1 Use This Result [facility] Glucose comment 2 RN/MD Notified NILSA Blood 11/01/2024 9:59 PM CDT 11/01/2024 9:59 PM CDT us Des Lopez MD LAB POCT ORDERABLES - DEVICE F inal Result Performing Organization Address City/[facility] Co de Phone Number [place] [phone] [facility] [place] [address] * (ABNORMAL) Urinalysis reflex to microscopic and culture Urine (11/01/2024 7:23 PM CDT) Color, ur Straw Yellow Clarity, ur Clear Clear [facility] Specific gravity, ur 1.007 1.003 - 1.030 [facility] pH, urine 7.5 [facility] Comment: Interpretive Data U rine pH is affected by diet, medications, systemic acid-base disturbances, and renal tubular function. pH may affect urinary stone formation. For example, urine pH below 6.0 may help reduce the tendency for calcium phosphate stones and pH greater than 6.0 may reduce the tendency for uric acid stone formation. Source: [facility] Current Interpretive Data was last revised on 2017 Protein, ur ql 1+(A) Negative [facility] Glucose, ur ql 3+(A) Negative [facility] Ketones, ur Negative Negative [facility] Bilirubin, ur Negative Negative [facility] Blood, ur Negative Negative [facility] Urobilinogen, ur <2.0 <2.0 mg/dL [facility] Nitrite, ur Negative Negative [facility] Leukocyte esterase, ur 4+(A) Negative [facility] UA reflex comment Reflex to microscopic UA will be performed. [facility] Urine 11/01/2024 7:23 PM CDT 11/01/2024 7:37 PM CDT Tahmina Palencia MD LAB MICROBIOLOGY - GEN ERAL ORDERABLES Final Result [facility] [address] [facility] Department [place] [address] * (ABNORMAL) Urinalysis, microscopic only (11/01/2024 7:23 PM CDT) WBC, ur >50(A) 0 - 5 /HPF RBC, ur 0-2 0 - 2 /HPF [facility] Epithelial cells, squamous, ur 1-5 0 - 5 /HPF [facility] Culture Reflex Comment Reflex to urine culture will be performed. [facility] Urine 11/01/2024 7:23 PM CDT 11/01/2024 7:37 PM CDT us Tahmina Palencia MD LAB URINE ORDERABLES F inal Result NILSA [address] [facility] [place] [address] * (ABNORMAL) Urine culture Urine (11/01/2024 7:23 PM CDT) Report Final Report: Greater than or equal to 100,000 colonies/mL of Proteus mirabilis Plus growth of clinically insignificant bacterial shruti. (.) Comment:Testing performed by : [facility], [address] [place] [address] Organism PROTEUS MIRABILIS NILSA Organism PLUS GROWTH OF CLINICALLY INSIGNIFICANT SHRUTI. NILSA Urine 11/01/2024 7:23 PM CDT 11/02/2024 12:58 AM CDT Narrative NILSA - 11/04/2024 10:48 AM CDT Urine culture reflexed based upon urinalysis results. Testing performed by [facility] Microbiology Laboratory ([phone]) Organism Antibiotic Method Susceptibility Proteus mirabilis Ampicillin [...] - GEN ERAL ORDERABLES Final Result NILSA [facility] [place] [address] * CT Chest Abdomen Pelvis W Contrast [...] Salvador Bronson M.D. KT T: Report ID: [id number] Reading Location: [id number] Procedure Note Salvador Bronson MD - 11/01/2024 [...] Salvador Bronson M.D. KT T: Report ID: [id number] Reading Location: [place] [address] Tahmina Palencia MD IMG CT PROCEDURES Blessing [...] and well aerated. ORBITS: No acute abnormality. [place] ocular lenses replaced bilaterally. OTHER: No other significant abnormality. INTRACRANIAL VESSELS [place]: The anterior, middle, posterior cerebral [...] signed by Redd ARMAS T: Report ID: [id number] Reading Location: [id number] Procedure Note Redd Hendrickson MD - 11/01/2024 [...] and well aerated. ORBITS: No acute abnormality. [place] ocular lenses replaced bilaterally. OTHER: No other significant abnormality. INTRACRANIAL VESSE[place]: The anterior, middle, posterior cerebral [...] Redd Hendrickson M.D. CHANDA T: Report ID: [id number] Reading Location: [place] [address] us Tahmina Palencia MD IMG CT PROCEDURES [...] BLOOD ORDERABLES F inal Result NILSA RODRIGES [address] [facility] Department [place] [address] * CT Head WO Contrast [...] Shayne Landaverde M.D. AM T: Report ID: [id number] Reading Location: [id number] Procedure Note Shayne Landaverde MD - 11/01/2024 [...] Shayne Landaverde M.D. AM T: Report ID: [id number] Reading Location: [id number] Brittney CUEVA IM CT PROCEDURES Final Re [...] James Javier M.D. MZ T: Report ID: [id number] Reading Location: [place] [address] Procedure Note James Javier MD - 11/01/2024 [...] James Javier M.D. MZ T: Report ID: [id number] Reading Location: [place] [address] us Tahmina Palencia MD IMG XR PROCEDURES [...] LAB BLOOD ORDERABLES F inal Result [place] [id number] [facility] Department of Laboratories [place], [place] [id number] * (ABNORMAL) eGFR (11/01/2024 2:03 PM CDT) [...] MD LAB BLOOD ORDERABLES F inal Result [facility] [address] [facility] Department [place] [address] * (ABNORMAL) Differential, auto (11/01/2024 2:03 PM CDT) Neutrophil abs 7.67(H) 1.50 - 6.50 K/cumm Imm gran abs 0.05 0.00 - 0.10 K/cumm [facility] Lymphocyte abs 1.67 0.80 - 3.30 K/cumm [facility] Monocyte abs 0.43 0.20 - 0.80 K/cumm [facility] Eosinophil abs 0.11 0.00 - 0.50 K/cumm [facility] Basophil abs 0.02 0.00 - 0.10 K/cumm [facility] Neutrophil pct 77.1 % [facility] Comment: Interpretive Data Percent cell count reference ranges are not reported, since discordance with absolute values may lead to misinterpretation of CBC data. Current Interpretive Data was last revised on 2017. Imm gran pct 0.5 % [facility] Comment: Interpretive Data Percent cell count reference ranges are not reported, since discordance with absolute values may lead to misinterpretation of CBC data. Current Interpretive Data was last revised on 2017. Lymphocyte pct 16.8 % [facility] Comment: Interpretive Data Percent cell count reference ranges are not reported, since discordance with absolute values may lead to misinterpretation of CBC data. Current Interpretive Data was last revised on 2017. Monocyte pct 4.3 % [facility] Comment: Interpretive Data Percent cell count reference ranges are not reported, since discordance with absolute values may lead to misinterpretation of CBC data. Current Interpretive Data was last revised on 2017. Eosinophil pct 1.1 % [facility] Comment: Interpretive Data Percent cell count reference ranges are not reported, since discordance with absolute values may lead to misinterpretation of CBC data. Current Interpretive Data was last revised on 2017. Basophil pct 0.2 % [facility] Comment: Interpretive Data Percent cell count reference ranges are not reported, since discordance with absolute values may lead to misinterpretation of CBC data. Current Interpretive Data was last revised on 2017. Blood 11/01/2024 2:03 PM CDT 11/01/2024 2:05 PM CDT us Tahmina Paelncia MD LAB BLOOD ORDERABLES F inal Result NILSA [address] [facility] [place] [address] * (ABNORMAL) Pro B-type natriuretic peptide (11/01/2024 [...] RUEDA et.al. Eur Heart J. 2006:27:330-337. 2. Meilsa RW, Audelia AM. J. AM Yonny Cardiol: Cardiovasc Imag. 2009;2: 216- 225. Interpretive Data Last Revised Date: 2018. Blood 11/01/2024 2:03 PM CDT 11/01/2024 2:05 PM CDT us Tahmina Palencia MD LAB BLOOD ORDERABLES F inal Result Performing Organization Address [facility] Co de Phone Number [facility] [address] [address] * (ABNORMAL) CBC with auto differential (11/01/2024 2:03 PM CDT) WBC 9.95(H) 3.80 - 9.90 K/cumm Hgb 8.8(L) 11.9 - 15.5 g/dL [facility] Hct 27.2(L) 35.6 - 45.5 % [facility] Plt 207 150 - 400 K/cumm [facility] MPV 10.6 9.1 - 12.3 fL [facility] RBC 2.66(L) 3.90 - 5.20 M/cumm [facility] MCV 102.3(H) 81.3 - 96.4 fL [facility] MCH 33.1 27.1 - 33.3 pg [facility] MCHC 32.4 32.3 - 35.7 g/dL [facility] RDW CV 13.4 11.1 - 14.9 % [facility] RDW SD 50.4(H) 35.7 - 48.1 fL [facility] NRBC abs 0.00 0.00 - 0.01 K/cumm [facility] Blood 11/01/2024 2:03 PM CDT 11/01/2024 2:05 PM CDT us Tahmina Palencia MD LAB BLOOD ORDERABLES F inal Result Performing Organization Address City/[facility]/ZIP Co de Phone Number [address] [place] [address] * (ABNORMAL) Comprehensive metabolic panel (11/01/2024 2:03 PM CDT) Sodium 133(L) 135 - 145 mmol/L Potassium, pl 4.3 3.3 - 4.9 mmol/L [facility] Chloride 95(L) 97 - 110 mmol/L [facility] CO2 23 22 - 32 mmol/L [facility] Anion gap 15 2 - 15 mmol/L [facility] BUN 55(H) 6 - 25 mg/dL [facility] Creatinine 4.86(H) 0.60 - 1.10 mg/dL [facility] Glucose 290(H) 70 - 199 mg/dL [facility] Comment: Interpretive Data Fasting glucose [...] 2022. Calcium 9.2 8.5 - 10.3 mg/dL [facility] Bilirubin, total 0.2 0.1 - 1.2 mg/dL [facility] Protein, pl 7.0 6.5 - 8.5 g/dL [facility] Albumin 3.7 3.5 - 5.0 g/dL [facility] Alk phos 116 40 - 130 Units/L [facility] ALT 58(H) 7 - 45 Units/L [facility] AST 26 10 - 45 Units/L [facility] Blood 11/01/2024 2:03 PM CDT 11/01/2024 2:05 PM CDT us Tahmina Palencia MD LAB BLOOD ORDERABLES F inal Result NILSA [address] [facility] Department [place] [address] * ECG 12 lead (11/01/2024 1:59 PM CDT) [facility] Ventricular Rate EKG/Min 73 BPM [facility] Atrial Rate 73 BPM [facility] AR-Interval (MSEC) 146 ms [facility] QRS-Interval (MSEC) 58 ms [facility] QT-Interval (MSEC) 396 ms [facility] QTc 436 ms [facility] P [place] 47 degrees [facility] R [place] 2 degrees [facility] T [place] 66 degrees [facility] Diagnosis Normal sinus rhythm Normal ECG When compared with ECG of 12-JUL-2024 11:48, No significant change was found Confirmed by DIAMOND GUTIERREZ M.D. ([id number]) on 11/02/2024 11:07:33 PM [facility] 11/01/2024 1:59 PM CDT 11/02/2024 11:07 PM CDT us Tahmina Palencia MD ECG ORDERABLES Final Result [facility] * (ABNORMAL) Urinalysis reflex to microscopic and culture Urine, clean voided (10/31/2024 9:47 AM CDT) Color, ur [place] Yellow Comment:Testing performed by : [address] [address] Clarity, ur Turbid(A) Clear NILSA Comment:Testing performed by : [address] [address] Specific gravity, ur 1.008 1.003 - 1.030 NILSA Comment:Testing performed by : [address] [address] pH, urine 8.0 NILSA Comment: Interpretive Data U rine pH is affected by diet, medications, systemic acid-base disturbances, and renal tubular function. pH may affect urinary stone formation. For example, urine pH below 6.0 may help reduce the tendency for calcium phosphate stones and pH greater than 6.0 may reduce the tendency for uric acid stone formation. Source: [employer] Current Interpretive Data was last revised on 2017 Testing performed by: [address] [address] Protein, ur ql 2+(A) Negative NILSA Comment:Testing performed by : [address] [address] Glucose, ur ql 3+(A) Negative NILSA Comment:Testing performed by : [address], [place]., [address] Ketones, ur Negative Negative NILSA Comment:Testing performed by : [address], [place]., [address] Bilirubin, ur Negative Negative NILSA Comment:Testing performed by : [address], [place]., [address] Blood, ur Trace(A) Negative NILSA Comment:Testing performed by : [address], [place]., [address] Urobilinogen, ur <2.0 <2.0 mg/dL NILSA Comment:Testing performed by : [address], [place]., [address] Nitrite, ur Negative Negative NILSA Comment:Testing performed by : [address] [address] Leukocyte esterase, ur 4+(A) Negative NILSA Comment:Testing performed by : [address], [place]., [address] UA reflex comment Reflex to microscopic UA will be performed. NILSA Comment:Testing performed by : [address], [place]., [address] Urine, clean voided 10/31/2024 9:47 AM CDT 10/31/2024 9:50 AM CDT us Cherelle Corcoran MD LAB MICROBIOLOGY - GENERAL ORDERABLES Final Result NILSA [address] [facility] Department [place] [address] * (ABNORMAL) Urinalysis, microscopic only (10/31/2024 9:47 AM CDT) WBC, ur 6-10(A) 0 - 5 /HPF Comment:Testing performed by : [address], [place]., [address] RBC, ur 0-2 0 - 2 /HPF NILSA Comment:Testing performed by : [facility], [address] [place] [address]., [address] Bacteria, ur Trace(A) NILSA Comment:Testing performed by : [address] [address] Culture Reflex Comment Reflex conditions for urine culture (WBC >10) not met. NILSA Comment:Testing performed by : [address] [address] Urine, clean voided 10/31/2024 9:47 AM CDT 10/31/2024 9:50 AM CDT us Cherelle Corcoran MD LAB URINE ORDERAB LES Final Result Performing Organization Address City/State/[facility] Co de Phone Number NILSA [address] [facility] [place] [address] * XR Chest PA Lateral 2 Views [...] Edwardo Louis M.D. RW: ADAMARIS Report ID: [id number] Reading Location: [id number] Procedure Note Edwardo Louis MD - 10/24/2024 [...] Edwardo Louis M.D. RW: ADAMARIS Report ID: [id number] Reading Location: [place] [address] Cherelle Corcoran MD IMG XR PROCEDURES Final Result * CT CORONARY CALCIUM SCORING (10/17/2024 9:30 AM CDT) Anatomical Region Laterality Modality Chest Computed Tomogra phy Historical Provider MD MERIDA CT PROCEDURES Final R esult * Diabetic Eye Exam (07/27/2024 12:37 PM NUISANCE WILDLIFE TRAPPER) Historical Provider HEALTH MAINTENANCE Final Result * Colonoscopy (03/01/2024 8:49 AM CDT) Anatomical Region Laterality Modality Other Narrative Procedure Note Jaya Grier MD - 03/01/2024 8:49 AM CDT [facility] GI ENDOSCOPY Patient Name: Barbara Chakraborty Procedure Date: 03/01/2024 8:49 AM Date of : 1950 Admit Type: Outpatient Age: 73 Gender: Female Attending MD: Jaya Grier M.D. Room: [facility] ENDOSCOPY ROOM 06 Note [...] The scope was passed under direct vision.The [id number] colonoscope was introduced through theanus and advanced [...] On: 03/01/2024 8:49 AM Recognized by the [employer] for promoting quality [...] taking vitamin-D. History of end-stage renal disease. 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 TW: TW Report ID: [id number] Reading Location: [id number] Procedure Note Rafaela Paulino MD - 01/22/2024 EXAM DESCRIPTION: DEXA AXIAL SKELETON BONE DENSITY 1 OR MORE SITES REASON FOR STUDY: 73 y/o year old F with given history of: Post menopausal status. History of taking vitamin-D. History of end-stagerenal disease. 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 [facility] causes of low bone mineral density may [...] Rafaela Paulino M.D. TW: TW Report ID: [id number] Reading Location: [id number] us Cherelle Corcoran MD IMG DXA PROCEDURE [...] age 40, based on guidelines of the [employer] (ACR Practice Parameter for the Performance of Screening and Diagnostic Mammography) and [employer]. For women [...] suspicious finding in either breast on mammogram. Chreelle Corcoran MD IM MAMMO PROCEDU RES Final Result * Hepatitis panel, acute Blood (10/15/2023 6:50 AM CDT) Hep A IgM Nonreactive Nonreactive Comment: Interpretive Data: If Hep A IgM Ab is reported as Equivocal, a new sample should be drawn in two weeks for testing. Current interpretive data was last revised on 19. Hep B core IgM Nonreactive Nonreactive [facility] Comment: Interpretive Data If HepB Core IgM Ab is reported as Equivocal, a new sample should be drawn in two weeks for testing. Current interpretive data was last revised on 19. Hep C Ab Nonreactive Nonreactive [facility] Comment: Interpretive Data Nonreactive: Antibodies to HCV [...] revised on 2019. HepBsAg Nonreactive Nonreactive [facility] Blood 10/15/2023 6:50 AM CDT 10/15/2023 7:07 AM CDT Jimbo Strauss MD LAB MICROBIOLOGY - GENERAL FREDDY HALEY Final Result Performing Organization Address City/[facility] Co de Phone Number NILSA [address] Department [place] [address] * (ABNORMAL) Albumin Creatinine Ratio, Urine (10/10/2022 11:39 AM CDT) Albumin Ur 3,240.2 mg/L NILSA Comment: Interpretive Data No reference range established. Current interpretive data was last revised 2018. Testing performed by: [address] [address] Creatinine Ur 74.8 mg/dL NIL[facility] Comment: Interpretive Data No reference range established. Current interpretive data was last revised 2018. Testing performed by: [address] [address] Albumin Creatinine Ratio, Ur 4,332(H) 1 - 29 mg/g NIL[facility] Comment:Testing performed by : [address] [address] Urine 10/10/2022 11:3 9 AM CDT 10/10/2022 1:45 PM CDT Markie Ryan MD LAB URINE ORDERABLES Final Re sult Performing Organization Address City/[facility] Co de Phone Number NILSA [address] [facility] Department [place] [address] from Last 3 Months or Most Recently Relevant to Health Maintenance Insurance MEDICARE [facility] Address: [address] [address] [place] [address] MEDICARE IDPA MEDICARE IDPA MEDICARE [facility] Advance Directives For more information, please contact: [phone] Documents on File Type Date Recorded 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 Machine 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 Package Yarns Expl anation ADVANCE DIRECTIVE 07/15/2024 7:58 AM Power of Right Of Way Clearer-Medical ADVANCE DIRECTIVE 02/02/2024 12:34 PM Erik r of Right Of Way Clearer-Medical * Full Code (Latest Code Status on [...] Areli Gonzalez Health Care Agent Care Teams Water Conservation Specialist Relationship Specialty Start Date End Date Cherelle Corcoran MD PCP - General Family Medicine 08/30/19 aMrk Queen MD Consulting Physician Infectious Diseases 01/10/20 Rudolph Welch MD [address] [facility] [address] [place] [address] Consulting Physician Infectious Diseases 12/05/22 Markie Ryan MD [address] [facility] [address] [place] [address] Consulting Physician Nephrology 12/05/22 [place] [id number] [address] Consulting Physician Nephrology 10/22/23 Jaya Grier MD [address] [facility] [address] [place] [address] Consulting Physician Gastroenterology 02/01/24 Edgardo Kauffman MD [address] [facility] [address] [facility] [address] [place] [address] Surgeon Vascular Surgery 07/15/24
--- OUTSIDE RECORDS SUMMARY | 2024-12-26 13:04 | XMS_ITS | Clinical Summary ---
Author Organization [facility] Address [address], [address] [address] Phone Care Team Providers Care Medical Laboratory Technicians Name Role Phone Cherelle Corcoran MD Primary [...] - 144 mmol/L 03/11/2019 11:10 AM CDT [facility] POTASSIUM 4.8 3.5 - 5.1 mmol/L 03/11/2019 11:10 AM CDT [facility] CHLORIDE 96(L) 100 - 110 mmol/L 03/11/2019 11:10 AM CDT [facility] CO2, VENOUS 28 22 - 32 mmol/L 03/11/2019 11:10 AM CDT [facility] ANION GAP 17.8 8.0 - 20.0 mmol/L 03/11/2019 11:10 AM CDT [facility] GLUCOSE 216(H) 70 - 99 mg/dL 03/11/2019 11:10 AM CDT [facility] BUN 22 8 - 23 mg/dL 03/11/2019 11:10 AM [facility] CREATININE, BLOOD 0.66 0.60 - 1.10 mg/dL 03/11/2019 11:10 AM [facility] BUN/CREATININE RATIO 33(H) 12 - 20 ratio 03/11/2019 11:10 AM [facility] TOTAL PROTEIN 8.4(H) 6.0 - 8.3 g/dL 03/11/2019 11:10 AM [facility] ALBUMIN 4.3 3.5 - 5.2 g/dL 03/11/2019 11:10 AM [facility] Comment: The colormetric methods used for the determination of Albumin may lead to falsely elevated test results in patients suffering from renal failure or insufficiency due to interference with other proteins. A/G RATIO 1.0 1.0 - 2.0 03/11/2019 11:10 AM [facility] CALCIUM 10.4(H) 8.9 - 10.3 mg/dL 03/11/2019 11:10 AM [facility] T BILI 0.3 <=1.2 mg/dL 03/11/2019 11:10 AM [facility] SGOT (AST) 19 <=32 U/L 03/11/2019 11:10 AM [facility] Comment: Hemolysis present: results may be falsely elevated. SGPT (ALT) 14 <=33 U/L 03/11/2019 11:10 AM [facility] ALKALINE PHOSPHATASE 123(H) 35 - 105 U/L 03/11/2019 11:10 AM [facility] GFR, EST. NONAFRICAN >60 >=60 03/11/2019 11:10 AM [facility] GFR, EST. >60 >=60 019 11:10 AM [facility] Comment: Creatinine Clearance is the preferred criteria for selecting drug dose adjustments in renally impaired patients. The GFR is provided as additional pertinent clinical information. GFR is reported in mL/min/1.73 sq m. Blood specimen (specimen) Venous Catheter (IV) / Unknown 03/11/2019 10:23 AM CDT 03/11/2019 10:46 AM CDT Ronald Haro MD CHEMISTRY ORDERABLES Final Result Performing Organization Address [facility]/ZIP Co de Phone Number [facility] [address] [place] [address] * (ABNORMAL) POCT GLYCOSYLATED HEMOGLOBIN (01/20/2019 9:44 AM CDT) HGB-A1C 15(A) 4 - 6 Comment:above 15 01/20/2019 9:44 AM CDT Choco Morris PAC POINT OF CARE TESTING (M ANUAL) Final Result * Stool, Occult Blood, Diagnostic (03/30/2017 2:09 PM CDT) OCCULT BLOOD DIAG Negative Negative 03/30/2017 2:29 PM CDT [facility] Stool specimen (specimen) STOOL SPECIMEN / Unknown Non-Phlebotomy Collection / Unknown 03/30/2017 2:09 PM CDT 03/30/2017 2:23 PM CDT Anali Ortiz PAC BODY FLUIDS & STOOLS ORDERAB LES Final Result Performing Organization Address City/[facility] Co de Phone Number [facility] [address] [place] [address] * CHERYL SCREENING BILATERAL DIGITAL W CAD [...] to stabilize the patient. Care Teams Medical Laboratory Technicians Relationship Specialty Start Date End Date Cherelle Corcoran MD [address] [place], [place] [id number] PCP - General Family Medicine 02/12/24 Sim López MD [address] [place] [phone] Consulting Physician Oncology 02/12/24
--- OUTSIDE RECORDS SUMMARY | 2024-12-26 13:04 | XMS_ITS | Encounter Summary ---
Author Organization [facility] Healthcare Address [address] [place] [address] Care Team Providers Care Piped Pocket Machine Operator Name Role Phone Cherelle Corcoran MD Primary Care Pro vider Mark Queen MD Unavailable [phone] Rudolph Welch MD Unavailable [phone] Markie Ryan MD Unavailable [phone] Jimbo Strauss MD Unavailable [phone] Jaya Grier MD Unavailable Edgardo Kauffman MD Unavailable [phone] Macrina Mike RN Unavailable Reason for Visit * Reason Onset Date Comments ARYA Questions 11/24/2024 Encounter Details Date Type Department Care Team ([facility] Contact Info) Description 11/24/[address] [facility] Medical Group Primary Care at [address] [address] Cherelle Corcoran MD [facility] [address] ARYA Questions Social History Tobacco [...] from doctor or pharmacy Often 01/20/2024 [facility] Utilities Answer Date Recorded In the past 12 months has e [employer], gas, oil, or water stylemarks threatened to shut off services in your [...] you attend chur ch or denominational services? 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 No Will patient be transferred to another inpatient facility (e.g. senior living, inpatient rehab, etc.)? No The patient was not discharged at the time of the call. Patient will need to be contacted after discharge to complete remaining questions. Date Admitted: 12.13.24 Tentative Discharge Date: 11.26.24 Facility Admitted To: [facility] Date of ARYA Appointment: 12.01.24 Additional Comments: patient still needs to be asked arya questions Does message need to be routed? Yes-Action Needed documented in this encounter Plan of Treatment Scheduled Procedures Name Priority Associated Diagnoses Date/Ti me COLONOSCOPY Iron deficiency anemia due to chronic blood loss documented as of this encounter Visit Diagnoses Not on filedocumented in this encounter Care Teams Piped Pocket Machine Operator Relationship Specialty Start Date End Date Cherelle Corcoran MD PCP - General Family Medicine 08/30/19 Mark Queen MD Consulting Physician Infectious Diseases 01/10/20 Rudolph Welch MD [address] [facility] [address] [place] [address] Consulting Physician Infectious Diseases 12/05/22 Markie Ryan MD [address] [facility] [address] [place] [address] Consulting Physician Nephrology 12/05/22 [place] [id number] [address] Consulting Physician Nephrology 10/22/23 Jaya Grier MD [address] [facility] [address] [place] [address] Consulting Physician Gastroenterology 02/01/24 Edgardo Kauffman MD [address] [facility] [address] [facility] [address] [place] [address] Surgeon Vascular Surgery 07/15/24 Macrina Mike RN [address] [place] [address] [address] [place] [address] Metal Flow Coordinator 11/07/24 11/30/24 documented as of this encounter
--- OUTSIDE RECORDS SUMMARY | 2024-12-26 13:05 | XMS_ITS | Encounter Summary ---
Author Organization [facility] Healthcare Address [address] [place] [address] Care Team Providers Care Vp Genetic Name Role Phone Cherelle Corcoran MD Primary Care Pro vider Mark Queen MD Unavailable [phone] Xenia Padilla LPN Unavailable Sarahy Schmidt EMERGENCY SERVICE WORKER Unavailable Brandie Callejas MA Unavailable Unav ailable Xenia Padilla LPN Unavailable [phone] Samples, Melania Joel RN Unavailable Anam Costa LCSW Unavailable Unavailabl e Samples, Melania Joel RN Unavailable Rudolph Welch MD Unavailable Markie Ryan MD Unavailable Nadege Ramírez RN Unavailable Dulce Vega RN Unavailable Jimbo Strauss MD Unavailable [phone] Jaya Grier MD Unavailable Edgardo Kauffman MD Unavailable Macrina Mike RN Unavailable Encounter Details Date Type Department Care Team (Late st Contact Info) Description 12/26/2019 Telephone [facility] Nutrition and Diabetic Education [address] [facility] [place] [address] Anastasia Leblanc, RN Social History Tobacco Use [...] file Legal Sex Female 9:03 AM CHIEF CREDIT OFFICER Gender Identity Female 02/08/2020 6:39 PM [...] CDT COVID19 08/13/2021 08/13/2021 08/24/2021 3:05 AM CHIEF CREDIT OFFICER COVID: Recovered Comment:Added based on recent COVID infection. 08/24/2021 08/26/2021 12/22/2021 3:05 AM C DT COVID: Suspected Comment:11/15/2021 pt is covid recovered 11/15/2021 11/15/2021 11/15/2021 3:32 PM C DT COVID: Suspected 11/15/2021 11/16/2021 11/16/2021 1:45 AM CDT Human metapneumovirus, conta ct + droplet 11/16/2021 11/16/2021 11/30/2021 3:05 AM C DT COVID: Suspected 05/08/2022 05/08/2022 05/08/2022 4:26 PM CHIEF CREDIT OFFICER COVID: Suspected 06/19/2022 06/19/2022 06/19/2022 12:37 PM CHIEF CREDIT OFFICER COVID: Suspected 08/01/2022 08/01/2022 08/01/2022 2:28 PM CHIEF CREDIT OFFICER COVID: Suspected 10/02/2022 10/02/2022 10/02/2022 8:14 PM CDT MRSA Comment:Toe 11/08/22, 12/12/22 11/08/2022 12/12/2022 06/10/2023 3:05 AM CHIEF CREDIT OFFICER COVID: Suspected 12/08/2022 12/08/2022 12/08/2022 8:17 PM CDT COVID: Suspected 07/27/2023 07/27/2023 07/28/2023 12:57 AM CHIEF CREDIT OFFICER COVID: Suspected 10/29/2023 10/30/2023 10/30/2023 10:59 AM CDT 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 12/19/2023 12/19/2023 3:58 PM CDT 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 12/29/2023 06/26/2024 3:05 AM CHIEF CREDIT OFFICER COVID: Suspected 04/19/2024 04/19/2024 04/20/2024 12:44 AM CDT COVID: Suspected 07/12/2024 07/12/2024 07/12/2024 12:39 PM CHIEF CREDIT OFFICER COVID: Suspected 07/31/2024 07/31/2024 07/31/2024 2:06 PM CHIEF CREDIT OFFICER documented as of this encounter Care Teams Vp Genetic Relationship Specialty Start Date End Date Cherelle Corcoran MD PCP - General Family Medicine 08/30/19 Mark Queen MD Consulting Physician Infectious Diseases 01/10/20 Xenia Padilla LPN Coffee Shop Aide 3/31/22 3/31/22 Sarahy Schmidt LPN [address] [place] [address] [address] [place] [address] ACO Care Asp Web Developer 11/27/21 12/25/21 Brandie Callejas MA Patient Sanitation Truck Cleaner 06/20/22 06/22/22 Xenia Padilla LPN [address] [place] [address] [address] [place] [address] Coffee Shop Aide 06/24/22 06/24/22 Samples, Melania Joel RN [address] [place] [address] [address] [place] [address] Coffee Shop Aide 07/22/22 08/21/22 Anam Costa LCSW [address] [place] [address] [address] [place] [address] Financial Underwriter 08/08/22 02/18/23 Samples, Melania Joel RN [address] [place] [address] [address] [place] [address] Coffee Shop Aide 08/22/22 12/07/22 Rudolph Welch MD [address] [facility] [address] [place] [address] Consulting Physician Infectious Diseases 12/05/22 Markie Ryan MD [address] [facility] [address] [place] [address] Consulting Physician Nephrology 12/05/22 Nadege Ramírez RN [address] [place] [address] [address] [place] [address] Coffee Shop Aide 01/20/23 02/23/23 Dulce Vega RN [address] [place] [address] [address] [place] [address] Coffee Shop Aide 10/07/23 05/03/24 [place] [address] [facility] [address] [place] [address] Consulting Physician Nephrology 10/22/23 Jaya Grier MD [address] [facility] [address] [place] [address] Consulting Physician Gastroenterology 02/01/24 Edgardo Kauffman MD [address] [facility] [address] [facility] [address] [place] [address] Surgeon Vascular Surgery 07/15/24 Macrina Mike RN [address] [place] [address] [address] [place] [address] Coffee Shop Aide 11/07/24 11/30/24 documented as of this encounter
--- OUTSIDE RECORDS SUMMARY | 2024-12-26 13:05 | XMS_ITS | Encounter Summary ---
Author Organization [facility] Healthcare Address [address] [place] [address] Care Team Providers Care Legal Executive Name Role Phone Cherelle Corcoran MD Primary Care Pro vider Mark Queen MD Unavailable [phone] Rudolph Welch MD Unavailable [phone] Markie Ryan MD Unavailable Jimbo Strauss MD Unavailable [phone] Jaya Grier MD Unavailable Edgardo Kauffman MD Unavailable [phone] Reason for Visit * Reason Onset Date Comments Arm Pain 12/26/2024 Encounter Details Date Type Department Care Team (Late st Contact Info) Description 12/26/2024 Nurse Triage [facility] Medical Group Primary Care at [place] [id number] [facility] [address] [place] [address] Cherelle Corcoran MD [address] [facility] [address] [place] [address] Social History Tobacco Use Types [...] or pharmacy Often 01/20/2024 [facility] Utilities Answer Date Recorded In the past [...] you attend chur ch or scientologist services? Patient unable to answer 11/07/2024 Do [...] on file Legal Sex Female 9:03 AM DUCO POLISHER Gender Identity Female 02/08/2020 6:39 PM [...] Additional Information on file. Protocols Used Arm Bipw-Pqefz-BG * Telephone Encounter - Mary Ramos RN [...] on filedocumented in this encounter Care Teams Legal Executive Relationship Specialty Start Date End Date Cherelle Corcoran MD PCP - General Family Medicine 08/30/19 Mark Queen MD Consulting Physician Infectious Diseases 01/10/20 Rudolph Welch MD [address] [facility] [address] [place] [address] Consulting Physician Infectious Diseases 12/05/22 Markie Ryan MD [address] [facility] [address] [place] [address] Consulting Physician Nephrology 12/05/22 [place] [address] [address] Consulting Physician Nephrology 10/22/23 Jaya Grier MD [address] [facility] [address] [place] [address] Consulting Physician Gastroenterology 02/01/24 Edgardo Kauffman MD [address] [facility] [address] [place] [address] [place] [address] Surgeon Vascular Surgery 07/15/24 documented as of this encounter
--- OUTSIDE RECORDS SUMMARY | 2024-12-26 13:05 | XMS_ITS | Encounter Summary ---
Author Organization [facility] Healthcare Address [address] [place] [address] Care Team Providers Care Biophysics Professor Name Role Phone Cherelle Corcoran MD Primary Care Pro vider Mark Queen MD Unavailable [phone] Rudolph Welch MD Unavailable [phone] Markie Ryan MD Unavailable [phone] Jimbo Strauss MD Unavailable [phone] Jaya Grier MD Unavailable Edgardo Kauffman MD Unavailable [phone] Macrina Mike RN Unavailable Reason for Visit * Reason Onset Date Comments Wound Infection 09/21/2024 Weakness - Generalized 09/21/2024 Confusion 09/21/2024 Encounter Details Date Type Department Care Team ([facility] st Contact Info) Description 09/21/2024 Nurse Triage [facility] Medical Group Primary Care at [address] [address] Cherelle Corcoran MD [facility] [address] Social History Tobacco Use Types [...] in a long term (including now)? No 04/20/2024 Personal Safety Answer Date Recorded Have you ever been in or are you currently in a harmful physical or emotional relationship or is someone making you feel afraid or unsafe? Denies 09/13/2024 Comments No Sex and Gender Information Value Date Recorded Sex Assigned at Not on file Legal Sex Female 9:03 AM PUBLIC AID ELIGIBILITY ASSISTANT Gender Identity Female 02/08/2020 6:39 PM [...] in the wound Protocols used: Wound Infection Ragypsbbo-Hwnmj-FD * Telephone Encounter - Monserrat Gillis RN [...] on filedocumented in this encounter Care Teams Biophysics Professor Relationship Specialty Start Date End Date Cherelle Corcoran MD PCP - General Family Medicine 08/30/19 Mark Queen MD Consulting Physician Infectious Diseases 01/10/20 Rudolph Welch MD [address] [facility] [address] [place] [address] Consulting Physician Infectious Diseases 12/05/22 Markie Ryan MD [address] [facility] [address] [place] [address] Consulting Physician Nephrology 12/05/22 [place] [address] [facility] [address] [place] [address] Consulting Physician Nephrology 10/22/23 Jaya Grier MD [address] [facility] [address] [place] [address] Consulting Physician Gastroenterology 02/01/24 Edgardo Kauffman MD [address] [facility] [address] [facility] [address] [place] [address] Surgeon Vascular Surgery 07/15/24 Macrina Mike RN [address] [place] [address] [address] [place] [address] Auto Damage Appraiser 11/07/24 11/30/24 documented as of this encounter
--- NOTE | 2024-12-26 13:29 | ED_ITS ---
HPI - Chest Pain General Chief Complaint: Chest Pain Stated Complaint: chest pain Time Seen by Provider: 12/26/24 12:51 History of Present Illness HPI narrative: Pt presents with left shoulder and left chest pain off and on for the last month. Pt has rotator cuff injury and thought it might be due to that but it has persisted. Pt denies precipitating or relieving factors. Pt has some SOB with exertion as well. Pt has had several episodes of the CP/shoulder pain including a couple yesterday and one early this morning. Pt has no pain now. Related Data Home Medications ?Medication ?Instructions ?Recorded ?Confirmed ?Last Taken ?Type acetaminophen 325 mg tablet 650 mg PO Q6H PRN Pain 09/19/21 11/09/24 Unknown History insulin glargine 100 unit/mL (3 11 unit subcut HS 09/19/21 11/09/24 11/08/24 23:30 History mL) subcutaneous pen (Lantus 11 units Solostar U-100 Insulin) insulin lispro 100 unit/mL 1 - 4 sliding scale dose subcut 09/19/21 11/09/24 11/08/24 18:30 History subcutaneous pen USEASDIRECTD 4+2 lidocaine 5 % topical patch 2 patch topical DAILY PRN Back Pain 09/19/21 11/09/24 11/07/24 07:00 History 2 patch multivitamin 1 tablet PO DAILY 09/19/21 11/09/24 11/09/24 07:00 History 1 tablet aspirin 81 mg chewable tablet 81 mg PO DAILY 06/28/24 11/09/24 11/09/24 07:00 History 81 mg benztropine 2 mg tablet 2 mg PO HS 06/28/24 11/09/24 11/08/24 23:30 History 2 mg hydralazine 25 mg tablet 25 mg PO TID 06/28/24 11/09/24 11/09/24 07:00 History 25 mg pantoprazole 40 mg tablet,delayed 40 mg PO DAILY 06/28/24 11/09/24 11/09/24 07:00 History release 40 mg atorvastatin 20 mg tablet 20 mg PO QPM 11/09/24 11/09/24 11/08/24 23:30 History 20 mg carvedilol 6.25 mg tablet 6.25 mg PO Q12H 11/09/24 11/09/24 11/09/24 07:00 History 6.25 mg meclizine 25 mg tablet 25 mg PO DAILY 11/09/24 11/09/24 11/09/24 07:00 History 25 mg Allergies Allergy/AdvReac Type Severity Reaction Status Date / Time No Known Allergies Allergy Verified 11/09/24 18:43 Review of Systems 2 Review of Systems: All systems reviewed & are unremarkable except as noted in HPI and below PMFSH Past Medical History Medical History (Updated 12/26/24 @ 14:57 by John Mcclure III, DO) Drug-induced Parkinson's disease Heart failure with preserved ejection fraction Insulin dependent diabetes mellitus Chronic kidney disease, stage 4 (severe) Creatinine ranges from 1.9 to 2.20. Venous thrombosis Anemia Hyperkalemia Dementia COVID (06/2021) Schizophrenia Diabetic neuropathy Surgical History Surgical History History of cataract extraction with lens replacement History of section Right great toe amputee Family History Family History Mother Diabetes mellitus Acute myocardial infarction Father Heart attack Cancer Sibling Diabetes mellitus Acute myocardial infarction Social History Social History Social History: The patient lives with her daughter and grand son in [place]. Lifelong nonsmoker. No alcohol or illicit substance abuse. She designates her daughter, Candelaria Gayle, as her surrogate decision maker. Code status: Full code. Smoking status: Never smoker Alcohol intake: never Substance use: never Substance use type: does not use Do You Feel Safe in your Home?: Yes Lack of Transportation: No Lack of Food: Never True Current Housing: I Have Housing Concerned About Future Housing: No Difficulty Paying Gas/Electric Bills: No Difficulty Paying for Meds: No Currently Unemployed: No Education: Master's Degree or Higher Difficulty w/ Childcare or Family Care: No Living arrangements: with family Spiritual care concerns: Yes Exam 2 Const: General: healthy appearing and no acute distress Nutritional Appearance: well nourished Orientation/consciousness: patient oriented x3 Limitations: no limitations HENMT: Head: normal to inspection Eyes: Conjunctivae: conjunctivae normal Pupils: Equal, round and reactive pupils present EOM: EOMs intact bilaterally Chest: Chest palpation & inspection: normal inspection of the chest Resp: Effort & Inspection: normal respiratory effort Auscultation: clear to auscultation bilaterally Cardio: Rate: regular rate Rhythm: regular rhythm GI: GI Palp: Yes Soft to palpation and No Tenderness to palpation present (GI) Auscultation: normal bowel sounds Skin: General skin exam: normal color Rashes: no rashes Wounds: no wounds Neuro: General: patient oriented x3, moves all extremities, no meningeal signs, no focal motor deficits and CN's II-XI intact bilaterally Cranial nerves: Yes Nystagmus not present Speech: normal speech Extrem: General: normal to inspection and no clubbing, cyanosis or edema Psych: Mental Status: mental status grossly normal Affect: normal affect Attitude: cooperative Course Vital Signs Vital signs: Vital Signs Temperature 97.5 F L 12/26/24 11:57 Pulse Rate 73 12/26/24 11:57 Respiratory Rate 16 12/26/24 11:57 Blood Pressure 176/66 H 12/26/24 11:57 Pulse Oximetry 100 12/26/24 11:57 Oxygen Delivery Room Air 12/26/24 11:57 Temperature 97.5 F L 12/26/24 12:50 Pulse Rate 69 12/26/24 15:05 Respiratory Rate 14 12/26/24 15:05 Blood Pressure 180/76 H 12/26/24 15:05 Pulse Oximetry 100 12/26/24 15:05 Oxygen Delivery Room Air 12/26/24 12:54 MDM - Chest Pain MDM Narrative Medical decision making narrative: seems more musculoskeletal but will do cardiac work up to rule out acs. since has had several bouts one trop should be adequate to rule out. kidney function baseline. trop neg. likely muscular. will start on tramadol for pain and discharge. discussed with patient and daughter and are comfortable with plan. Pt can make her dialysis tonight. Differential Diagnosis Differential diagnosis: Likely pneumothorax, stable angina, unstable angina pectoris, atypical chest pain, st elevation myocardial infarction and chest pain Lab Data 12/26/24 12:14 12/26/24 12:14 Labs: Lab Results 12/26/24 Range/Units 12:14 WBC 8.7 (4.5-10.0) K/mm3 RBC 3.21 L (4.2-5.4) M/mm3 Hgb 10.1 L (12.0-15.0) g/dL Hct 32.1 L (37.0-47.0) % MCV 100.0 (80-100) fl MCH 31.5 (26-34) pg MCHC 31.5 L (32-36) g/dl RDW 14.2 (11.5-14.5) % Plt Count 231 (150-375) k/mm3 MPV 10.4 (7.4-10.4) fl Immature Gran % (Auto) 0.2 (0-0.5) % Neut % (Auto) 70.7 (45.5-73.1) % Lymph % (Auto) 21.2 (18.3-44.2) % Highlands % (Auto) 5.7 (2.6-8.5) % Eos % (Auto) 1.9 (0-4.4) % Baso % (Auto) 0.3 (0.2-1.2) % Lymph # (Auto) 1.85 (0.9-3.2) K/mm3 Highlands # (Auto) 0.5 (0.1-0.6) K/mm3 Eos # (Auto) 0.2 (0-0.3) K/mm3 Baso # (Auto) 0.0 (0.0-0.1) K/mm3 Abs Immat Gran (auto) 0.02 (0.00-0.031) K/mm3 Absolute Neuts (auto) 6.2 (1.3-6.7) K/mm3 Absolute Nucleated RBC 0.000 (0.0-0.012) K/mm3 Nucleated RBC % 0.0 (0.0-0.2) % PT 13.1 (11.1-14.7) Seconds INR 1.0 APTT 27.8 (22.3-36.8) Seconds Sodium 140 (137-145) mmol/L Potassium 4.5 (3.4-5.0) mmol/L Chloride 103 (98-107) mmol/L Carbon Dioxide 26 (22-30) mmol/L Anion Gap 11 (4-12) mmol/L BUN 50 H (7-17) mg/dL Creatinine 5.12 H (0.7-1.0) mg/dL Estim Creat Clear Calc 7 ml/min Estimated GFR 8 L (59 - ) Glucose 217 H (65-110) mg/dL Calcium 9.6 (8.4-10.2) mg/dL Total Bilirubin 0.3 (0.2-1.3) mg/dL AST 23 (14-36) U/L ALT 21 (6-35) U/L Alkaline Phosphatase 154 H (38-126) U/L Troponin I < 0.012 (0.000-0.034) ng/mL Total Protein 7.6 (6.3-8.2) g/dL Albumin 4.0 (3.5-5.1) g/dL Lipase 63 (23-300) U/L Discharge Plan Discharge Clinical Impression: Chest wall pain Patient Disposition: Home Condition: Stable Instructions: Antibiotic Form, Chest Wall Pain (ED) Patient Language: Chinese Prescriptions: New tramadol-acetaminophen 37.5-325 mg tablet 1 tablet PO Q6H PRN (Reason: pain) Qty: 14 0RF No Action acetaminophen 325 mg Tablet 650 mg PO Q6H PRN (Reason: Pain) insulin glargine [Lantus Solostar U-100 Insulin] 100 unit/mL (3 mL) insulin pen 11 unit SUBCUT HS Rx Instructions: HOLD IF BLOOD GLUCOSE < 130 multivitamin Tablet 1 tablet PO DAILY lidocaine 5 % Adhesive Patch,Medicated 2 patch TOPICAL DAILY PRN (Reason: Back Pain) Rx Instructions: to bilateral lower back insulin lispro 100 unit/mL Insulin Pen 1 - 4 sliding scale dose SUBCUT USEASDIRECTD Patient Comments: 4 SCHEDULED WITH MEALS, IF BLOOD GLUCOSE > 100 Rx Instructions: 150 or less: no insulin 151-200: 1 unit 201-250: 2 units 251-300: 3 units greater than 300: 4 units pantoprazole 40 mg tablet,delayed release (DR/EC) 40 mg PO DAILY aspirin 81 mg tablet,chewable 81 mg PO DAILY hydralazine 25 mg tablet 25 mg PO TID Rx Instructions: HOLD DOSE PRIOR TO DIALYSIS TREATMENT benztropine 2 mg tablet 2 mg PO HS atorvastatin 20 mg tablet 20 mg PO QPM carvedilol 6.25 mg tablet 6.25 mg PO Q12H meclizine 25 mg tablet 25 mg PO DAILY Rx Instructions: START ON 11/07/24, END ON 11/11/24 gabapentin 100 mg Capsule 100 mg PO DAILY Qty: 30 0RF gabapentin 100 mg capsule 100 mg PO .COMPLEX Qty: 30 0RF Rx Instructions: 100 mg orally; ONLY DURING DIALYSIS ON DIALYSIS DAYS post dialysis treatment Follow-up/Referrals: Nilo,Cherelle Butterfield MD [Primary Care Provider] -
[2024-12-26 13:41] LABS: Alanine Aminotransferase 21 U/L (6-35); Albumin Level 4.0 g/dL (3.5-5.1); Alkaline Phosphatase 154 U/L (38-126); Anion Gap 11 mmol/L (4-12); Aspartate Amino Transferase 23 U/L (14-36); Bilirubin,Total 0.3 mg/dL (0.2-1.3); Blood Urea Nitrogen 50 mg/dL (7-17); Calcium 9.6 mg/dL (8.4-10.2); Carbon Dioxide 26 mmol/L (22-30); Chloride 103 mmol/L (98-107); Estimated CRCL calculation 7 ml/min; Estimated Glomerular Filt Rate 8; Glucose 217 mg/dL (65-110); Lipase 63 U/L (23-300); Potassium 4.5 mmol/L (3.4-5.0); Sodium 140 mmol/L (137-145); Total Protein 7.6 g/dL (6.3-8.2)
[2024-12-26] MEDS: ASPIRIN 81 MG CHEWABLE TABLET 324 MG PO (13:55)
[2024-12-26] MEDS: ONDANSETRON INJ 4 MG/2 ML VIAL IV PUSH (13:56)
[2024-12-26] MEDS: MORPHINE SULFATE (*CRX) 2 MG/ML INJ IV PUSH (13:58)
[2024-12-26 14:00] VITALS: BP 178/69; PULSE 71; RESP 16; O2SAT 100
[2024-12-26 14:03] LABS: Troponin I < 0.012 ng/mL (0.000-0.034)
[2024-12-26 15:05] VITALS: BP 180/76; PULSE 69; RESP 14; O2SAT 100
== END 2024-12-26 15:05 | disposition home or self-care (01) ==
PROVIDERS: Emergency Medicine; Emergency Provider Emergency Medicine; PCP Hospitalist
DX: R07.89 Other chest pain (principal); E11.40 Type 2 diabetes mellitus with diabetic neuropathy, unspecified; Z79.4 Long term (current) use of insulin; I50.9 Heart failure, unspecified; G20.A1 Parkinson's disease without dyskinesia, without mention of fluctuations; F03.90 Unspecified dementia, unspecified severity, without behavioral disturbance, psychotic disturbance, mood disturbance, and anxiety; F20.9 Schizophrenia, unspecified; N18.4 Chronic kidney disease, stage 4 (severe); E11.22 Type 2 diabetes mellitus with diabetic chronic kidney disease
CPT/HCPCS: 36415; 71046; 80053; 83690; 84484; 85025; 85610; 85730; 93005; 96374; 96375; 99284; A9270; J2270; J2405

== ENCOUNTER 2025-03-27 16:23 | Emergency (ER) | payer MEDICARE, MEDICAID, SELFPAY ==
--- OUTSIDE RECORDS SUMMARY | 2004-11-08 08:45 | XMS_ITS | Continuity of Care Document ---
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 [address] [facility] , [address], [place], [address], [place]. tel:[phone] Family History Family Member Type Diagnosis Age At Onset No Information Payers Payer name Insurance type Covered republican ID Authoriza tion(s) Medicaid [facility] [id number] Social History Type Description Quantity Date Captured [...]
[2025-03-27] VITALS (7 sets, daily range): BP systolic 152–183; BP diastolic 57–72; PULSE 66–72; RESP 15–20; TEMP 36.7; O2SAT 96–100
--- NOTE | ~2025-03-27 | XR_ITS ---
EXAMINATION: XR chest 2V, 03/27/2025 17:15 CDT HISTORY: weakness, low back pain COMPARISON: No comparisons available. Technique: 2 views obtained. Findings: The lungs are clear, no effusion. No pneumothorax. Heart is normal size. Mediastinal and hilar contours are within normal limits. Bony thorax no acute abnormality. Right central line terminates in the atrium. Impression: No acute cardiopulmonary abnormality. Reviewed, dictated and finalized at location P. Impression: No acute cardiopulmonary abnormality.
--- OUTSIDE RECORDS SUMMARY | 2025-03-27 16:28 | XMS_ITS | Encounter Summary ---
Author Organization [facility] Healthcare Address [address] [place] [address] Care Team Providers Care Electric Sign Assembler Name Role Phone Cherelle Corcoran MD Primary Care Pro vider Mark Queen MD Unavailable [phone] Xenia Padilla LPN Unavailable Sarahy Schmidt STAFF PSYCHOLOGIST Unavailable Brandie Callejas MA Unavailable Unav ailable Xenia Padilla LPN Unavailable [phone] Samples, Melania Joel RN Unavailable Anam Costa LCSW Unavailable Unavailabl e Samples, Melania Joel RN Unavailable Rudolph Welch MD Unavailable Markie Ryan MD Unavailable [phone] Nadege Ramírez RN Unavailable Dulce Vega RN Unavailable Jimbo Strauss MD Unavailable [phone] Jaya Grier MD Unavailable Edgardo Kauffman MD Unavailable [phone] Macrina Mike RN Unavailable Nicolas Edwards RN Unavailable [phone] Encounter Details Date Type Department Care Team (Late st Contact Info) Description 12/26/2019 Telephone [facility] Nutrition and Diabetic Education 1 [facility] [place] [address] Anastasia Leblanc, RN Social History Tobacco Use Types Packs/Day Years Used Date Smoking Tobacco: Never Smokeless Tobacco: Never Alcohol Use Standard Drinks/Week Comments Not Currently 0 (1 standard drink = 0.6 oz pur e alcohol) PHQ-2 Answer Date Recorded PHQ-2 Score 0 08/30/2019 Comments No Sex and Gender Information Value Date Recorded Sex Assigned at Not on file Legal Sex Female 9:03 AM OPERATIONS PROCESSOR Gender Identity Female 02/08/2020 6:39 PM CDT [...] CDT COVID19 08/13/2021 08/13/2021 08/24/2021 3:05 AM OPERATIONS PROCESSOR COVID: Recovered Comment:Added based on recent COVID infection. 08/24/2021 08/26/2021 12/22/2021 3:05 AM C DT COVID: Suspected Comment:11/15/2021 pt is covid recovered 11/15/2021 11/15/2021 11/15/2021 3:32 PM C DT COVID: Suspected 11/15/2021 11/16/2021 11/16/2021 1:45 AM CDT Human metapneumovirus, conta ct + droplet 11/16/2021 11/16/2021 11/30/2021 3:05 AM C DT COVID: Suspected 05/08/2022 05/08/2022 05/08/2022 4:26 PM OPERATIONS PROCESSOR COVID: Suspected 06/19/2022 06/19/2022 06/19/2022 12:37 PM OPERATIONS PROCESSOR COVID: Suspected 08/01/2022 08/01/2022 08/01/2022 2:28 PM OPERATIONS PROCESSOR COVID: Suspected 10/02/2022 10/02/2022 10/02/2022 8:14 PM CDT MRSA Comment:Toe 11/08/22, 12/12/22 11/08/2022 12/12/2022 06/10/2023 3:05 AM OPERATIONS PROCESSOR COVID: Suspected 12/08/2022 12/08/2022 12/08/2022 8:17 PM CDT COVID: Suspected 07/27/2023 07/27/2023 07/28/2023 12:57 AM OPERATIONS PROCESSOR COVID: Suspected 10/29/2023 10/30/2023 10/30/2023 10:59 AM CDT 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 12/19/2023 12/19/2023 3:58 PM CDT 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 12/29/2023 06/26/2024 3:05 AM OPERATIONS PROCESSOR COVID: Suspected 04/19/2024 04/19/2024 04/20/2024 12:44 AM CDT COVID: Suspected 07/12/2024 07/12/2024 07/12/2024 12:39 PM OPERATIONS PROCESSOR COVID: Suspected 07/31/2024 07/31/2024 07/31/2024 2:06 PM OPERATIONS PROCESSOR documented as of this encounter Care Teams Electric Sign Assembler Relationship Specialty Start Date End Date Cherelle Corcoran MD PCP - General Family Medicine 08/30/19 Mark Queen MD Consulting Physician Infectious Diseases 01/10/20 Xenia Padilla, [facility] Data Management Associate 09/19/21 09/19/21 Sarahy Schmidt STAFF PSYCHOLOGIST [address] [place] [address] [address] [place] [address] ACO Care Rn Training 11/27/21 12/25/21 Brandie Callejas MA Patient Ict Customer Support Officer 06/20/22 06/22/22 Xenia Padilla, DANIELLE [address] [place] [address] [address] [place] [address] Data Management Associate 06/24/22 06/24/22 Samples, Melania Joel RN [address] [place] [address] [address] [place] [address] Data Management Associate 07/22/22 08/21/22 Anam Costa LCSW [address] [place] [address] [address] [place] [address] Office Chair Assembler 08/08/22 02/18/23 Samples, Melania Joel RN [address] [place] [address] [address] [place] [address] Data Management Associate 08/22/22 12/07/22 Rudolph Welch MD [address] [facility] [address] [place] [address] Consulting Physician Infectious Diseases 12/05/22 Markie Ryan MD [address] [facility] [address] [place] [address] Consulting Physician Nephrology 12/05/22 Nadege Ramírez RN [address] [place] [address] [address] [place] [address] Data Management Associate 01/20/23 02/23/23 Dulce Vega, ALIREZA [address] [place] [address] [address] [place] [address] Data Management Associate 10/07/23 05/03/24 [place] [address] [facility] [address] [place] [address] Consulting Physician Nephrology 10/22/23 Jaya Grier MD [address] [facility] [address] [place] [address] Consulting Physician Gastroenterology 02/01/24 Edgardo Kauffman MD [address] [facility] [address] [facility] [address] [place] [address] Surgeon Vascular Surgery 07/15/24 Macrina Mike RN [address] [place] [address] [address] [place] [address] Data Management Associate 11/07/24 11/30/24 Nicolas Edwards RN [address] [place] [address] [address] [place] [address] Data Management Associate 03/24/25 documented as of this encounter
--- OUTSIDE RECORDS SUMMARY | 2025-03-27 16:28 | XMS_ITS | Encounter Summary ---
Author Organization [facility] Healthcare Address [address] [place] [address] Care Team Providers Care Electrolytic Etcher Name Role Phone Cherelle Corcoran MD Primary Care Pro vider Mark Queen MD Unavailable [phone] Rudolph Welch MD Unavailable Markie Ryan MD Unavailable Jimbo Strauss MD Unavailable [phone] Jaya Grier MD Unavailable Edgardo Kauffman MD Unavailable [phone] Nicolas Edwards RN Unavailable Reason for Visit * Reason Onset Date Comments Medical Question/Miscellaneous 02/27/2025 Encounter Details Date Type Department Care Team ([facility] st Contact Info) Description 02/27/2025 Telephone [facility] Medical Group Primary Care at [address] [phone] Cherelle Corcoran MD [facility] [address] [address] Medical Question/Miscellaneous Social History Tobacco [...] materials from doctor or pharmacy Often 01/20/2024 [facility] Utilities Answer Date Recorded In the past 12 months has e [employer], gas, oil, or water [employer] threatened to shut off services in your home? Yes 11/07/2024 Social Connection and Isolation Panel Answer Date Recorded In a typical week, how many times do you talk on the phone with family, friends, or neighbors? Patient unable to answer 11/07/2024 How often do you get togethe r with friends or relatives? Patient unable to answer 11/07/2024 How often do you attend [facility] or mormonism services? Patient unable to answer 11/07/2024 Do [...] points, staff should administer the PHQ-9) 0 02/27/2025 Hunger Vital Sign Answer Date Recorded Within [...] Answer Date Recorded PHQ-9 Total Score 0 02/27/2025 Housing Stability Vital Sign Answer Fuentes e Recorded In the last 12 months, was t here a time when you were not able to pay the mortgage or rent on time? No 11/07/2024 In the past 12 months, how m any times have you moved where you were living? 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 They stuck her about 5 times and couldnot get any blood. Areli will have [employer] fax labs they obtained recently. When they are received, please contact Areli with next steps. (She is encouraging patient to drink more water.) Does message need to be routed? Yes-Action Needed documented in this encounter Plan of Treatment Scheduled Procedures Name Priority Associated Diagnoses Date/Ti me COLONOSCOPY Iron deficiency anemia due to chronic blood loss documented as of this encounter Visit Diagnoses Not on filedocumented in this encounter Care Teams Electrolytic Etcher Relationship Specialty Start Date End Date Cherelle Corcoran MD PCP - General Family Medicine 08/30/19 Mark Queen MD Consulting Physician Infectious Diseases 01/10/20 Rudolph Welch MD [address] [facility] [address] [place] [address] Consulting Physician Infectious Diseases 12/05/22 Markie Ryan MD [address] [facility] [address] [place] [address] Consulting Physician Nephrology 12/05/22 [place] [address] [address] [place] [address] Consulting Physician Nephrology 10/22/23 Jaya Grier MD [address] [facility] [address] [place] [address] Consulting Physician Gastroenterology 02/01/24 Edgardo Kauffman MD [address] [facility] [address] [place] [address] Surgeon Vascular Surgery 07/15/24 Nicolas Edwards, ALIREZA [address] [place] [address] [address] [place] [address] Railroad Brake Operator 03/24/25 documented as of this encounter
--- OUTSIDE RECORDS SUMMARY | 2025-03-27 16:28 | XMS_ITS | Clinical Summary ---
Author Organization [facility] Address [address] [address], [address] [address] Phone Care Team Providers Care Cracking And Fanning Machine Operator Name Role Phone Cherelle Corcoran [...] 10/29/1995 Zoster Immunization (1 of 2) 2000 Medicare Initial AWV G0438 02/19/2010 Respiratory Syncytial Virus (RSV) Immunization (Adult) (1 - Risk 60-74 years 1-dose series) 2010 Mammogram 11/07/2016 11/08/2015 Immunochemical Fecal Occult Blood 03/30/2018 03/30/2017 Diabetes: Hemoglobin A1c 07/23/2019 019, 01/20/2019, 10/08/2017, Additional history exists Diabetes: Nephropathy Screening 03/11/2020 03/11/2019, 01/20/2019, 01/20/2019, Additional history exists Influenza Immunization (#1) 02/20/202507/23, 04/01/2022, 03/07/2021, Additional history exists SARS-COV-2 Immunization ( season) 2025 06/11/2021, 10/13/2020, 09/22/2020 Colonoscopy 04/01/2027 04/01/2017 Colorectal [...] - 144 mmol/L 03/11/2019 11:10 AM CDT [facility] POTASSIUM 4.8 3.5 - 5.1 mmol/L 03/11/2019 11:10 AM CDT [facility] CHLORIDE 96(L) 100 - 110 mmol/L 03/11/2019 11:10 AM CDT [facility] CO2, VENOUS 28 22 - 32 mmol/L 03/11/2019 11:10 AM CDT [facility] ANION GAP 17.8 8.0 - 20.0 mmol/L 03/11/2019 11:10 AM CDT [facility] GLUCOSE 216(H) 70 - 99 mg/dL 03/11/2019 11:10 AM CDT [facility] BUN 22 8 - 23 mg/dL 03/11/2019 11:10 AM [facility] CREATININE, BLOOD 0.66 0.60 - 1.10 mg/dL 03/11/2019 11:10 AM [facility] BUN/CREATININE RATIO 33(H) 12 - 20 ratio 03/11/2019 11:10 AM [facility] TOTAL PROTEIN 8.4(H) 6.0 - 8.3 g/dL 03/11/2019 11:10 AM [facility] ALBUMIN 4.3 3.5 - 5.2 g/dL 03/11/2019 11:10 AM [facility] Comment: The colormetric methods used for the determination of Albumin may lead to falsely elevated test results in patients suffering from renal failure or insufficiency due to interference with other proteins. A/G RATIO 1.0 1.0 - 2.0 03/11/2019 11:10 AM [facility] CALCIUM 10.4(H) 8.9 - 10.3 mg/dL 03/11/2019 11:10 AM [facility] T BILI 0.3 <=1.2 mg/dL 03/11/2019 11:10 AM [facility] SGOT (AST) 19 <=32 U/L 03/11/2019 11:10 AM [facility] Comment: Hemolysis present: results may be falsely elevated. SGPT (ALT) 14 <=33 U/L 03/11/2019 11:10 AM [facility] ALKALINE PHOSPHATASE 123(H) 35 - 105 U/L 03/11/2019 11:10 AM [facility] GFR, EST. NONAFRICAN >60 >=60 03/11/2019 11:10 AM [facility] GFR, EST. >60 >=60 019 11:10 AM [facility] Comment: Creatinine Clearance is the preferred criteria for selecting drug dose adjustments in renally impaired patients. The GFR is provided as additional pertinent clinical information. GFR is reported in mL/min/1.73 sq m. Blood specimen (specimen) Venous Catheter (IV) / Unknown 03/11/2019 10:23 AM CDT 03/11/2019 10:46 AM CDT us Ronald Haro MD CHEMISTRY ORDERABLES Final Result Performing Organization Address [facility] Co de Phone Number [facility] [address] [place] [address] * (ABNORMAL) POCT GLYCOSYLATED HEMOGLOBIN (01/20/2019 9:44 AM CDT) HGB-A1C 15(A) 4 - 6 Comment:above 15 01/20/2019 9:44 AM CDT Choco ARZATE POINT OF CARE TESTING (M ANUAL) Final Result * Stool, Occult Blood, Diagnostic (03/30/2017 2:09 PM CDT) OCCULT BLOOD DIAG Negative Negative 03/30/2017 2:29 PM CDT [facility] Stool specimen (specimen) STOOL SPECIMEN / Unknown Non-Phlebotomy Collection / Unknown 03/30/2017 2:09 PM CDT 03/30/2017 2:23 PM CDT us Anali Ortiz PAC BODY FLUIDS & STOOLS ORDERAB LES Final Result Performing Organization Address [facility] Co de Phone Number [facility] [address] [place] [address] * CHERYL SCREENING BILATERAL DIGITAL W CAD [...] measures to stabilize the patient. Care Teams Cracking And Fanning Machine Operator Relationship Specialty Start Date End Date Cherelle Corcoran MD [address] [place] [id number] PCP - General Family Medicine 02/12/24 Sim López MD [address] [place] [address] [phone] Consulting Physician Oncology 02/12/24
--- OUTSIDE RECORDS SUMMARY | 2025-03-27 16:28 | XMS_ITS | Encounter Summary ---
Author Organization [facility] Healthcare Address [address] [place] [address] Care Team Providers Care Pharmaceutical Analyst Name Role Phone Cherelle Corcoran MD Primary Care Pro vider Mark Queen MD Unavailable [phone] Rudolph Welch MD Unavailable [phone] Markie Ryan MD Unavailable Jimbo Strauss MD Unavailable Jaya Grier MD Unavailable Edgardo Kauffman MD Unavailable Nicolas Edwards RN Unavailable Encounter Details Date Type Department Care Team (Late st Contact Info) Description 02/27/2025 Results Follow-Up [facility] Primary Care at [address] [place] [address] Cherelle Corcoran MD [facility] [address] [address] XR Chest PA Lateral 2 [...] from doctor or pharmacy Often 01/20/2024 [facility] Utilities Answer Date Recorded In the past 12 months has e [employer], gas, oil, or water [employer] threatened to shut off services in your [...] you attend chur ch or adventist services? Patient unable to answer 11/07/2024 Do [...] time in the past [address] 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 Gender Identity Female 02/08/2020 6:39 PM CDT Sexual Orientation Not on file documented as of this encounter Plan of Treatment Scheduled Procedures Name Priority Associated Diagnoses Date/Ti dc COLONOSCOPY Iron deficiency anemia due to chronic blood loss documented as of this encounter Visit Diagnoses Not on filedocumented in this encounter Care Teams Pharmaceutical Analyst Relationship Specialty Start Date End Date Cherelle Corcoran MD PCP - General Family Medicine 08/30/19 Mark Queen MD Consulting Physician Infectious Diseases 01/10/20 Rudolph Welch MD [address] [facility] [address] [place] [address] Consulting Physician Infectious Diseases 12/05/22 Markie Ryan MD [address] [facility] [address] [place] [address] Consulting Physician Nephrology 12/05/22 [place] [id number] [address] [facility] [address] [place] [address] Consulting Physician Nephrology 10/22/23 Jaya Grier MD [address] [facility] [facility] [address] [place] [address] Consulting Physician Gastroenterology 02/01/24 Edgardo Kauffman MD [address] [facility] [address] [address] [place] [address] Surgeon Vascular Surgery 07/15/24 Nicolas Edwards, [facility] [address] [place] [address] [address] [place] [address] [employer] 03/24/25 documented as of this encounter
--- OUTSIDE RECORDS SUMMARY | 2025-03-27 16:28 | XMS_ITS ---
Author Organization [facility] Address [address] [place] [address] Care Team Providers Care Kitchen Utility Associate Name Role Phone Cherelle Corcoran MD Primary Care Pro vider Mark Queen MD Unavailable [phone] Rudolph Welch MD Unavailable Markie Ryan MD Unavailable [phone] Jimbo Strauss MD Unavailable [phone] Jaya Grier MD Unavailable Edgardo Kauffman MD Unavailable Nicolas Edwards RN Unavailable Dialysis Access Sites Type Status Location Placement Date Removal Da te Hemodialysis Cath Double 10/15/23 Tunneled catheter Right Internal Jugular Active Right Neck (side) - Anterior 10/15/2023 Procedures Procedure Name Priority Date/Time Associated Diagnosis Comments XR CHEST PA LATERAL 2 VIEWS Schedule RA, Read RA (Appt Today, Awaiting Results) 02/27/2025 1:14 PM CDT SOB (shortness of breath) DIABETES EYE EXAM Routine 01/20/2025 11:51 AM CDT POCT GLUCOSE Routine 12/26/2024 9:39 AM CDT Type 2 diabetes mellitus with chronic kidney disease on chronic dialysis, with long-term current use of insulin (HCC) EGFR Timed 11/25/2024 12:58 PM CDT HEMOGLOBIN A1C Routine 11/01/2024 10:05 PM CDT LIPID PANEL Routine 11/01/2024 10:05 PM CDT COLONOSCOPY 03/01/2024 8:49 AM CDT DEXA AXIAL [...] Maintenance Allergies No known active allergies Medications pen needle, diabetic (Easy Touch) 32 gauge [...] 15 days 6 each [address] (PROTONIX) 40 mg EC tabletIndication s:Gastroesophage al reflux disease without esophagitis Take 1 tablet (40 mg total) by mouth daily before breakfast 90 tablet 3 2024 Active insulin lispro (HumaLOG, ADMELOG) 100 unit/mL pen for injectionIndicat ions:Type 2 diabetes mellitus with diabetic nephropathy, with long-term current use of insulin ([facility]) Inject 4 units SQ before meals along with sliding scale. Max TDD 20 units 15 mL 3 2024 Active cholecalciferol (VITAMIN D-3) 5,000 unit capsule Take 1 capsule (5,000 Units total) by mouth daily Active LANTUS 100 unit/mL (3 mL) pen for injection Inject 11 Units under the skin nightly 6 mL 2024 Active Additional Information Patient taking differently: 14 Unitssubcutaneous Nightly, Reported on 02/27/2025 lidocaine (LIDODERM) 5 % Place 1 patch on the skin daily for 12 hours Remove & discard patch within 12 hours or as directed by . 30 patch 11 2024 Active hydrALAZINE (APRESOLINE) 50 mg tablet 1 tablet (50 mg total) 2024 Active carvediloL (COREG) 6.25 mg tabletIndication s:Hypertension associated with diabetes ([facility]) Take 1 tablet (6.25 mg total) by mouth 2 (two) times a day with meals 180 tablet 11/29 Active aspirin 81 mg chewable tablet CHEW AND SWALLOW 1 TABLET(81 MG) BY MOUTH DAILY 90 tablet 1 2024 Active lidocain-me.sali [id number] 4-20-0.025-5 % adhesive patch,medicated Apply 1 patch topically 2024 Active risperiDONE (RisperDAL) 2 mg tablet Take 1 tablet (2 mg total) by mouth nightly 30 tablet 11 01/26 Active benztropine (COGENTIN) 2 mg tablet Take 1 tablet (2 mg total) by mouth nightly 30 tablet 11 01/26 Active calcitRIOL (ROCALTROL) 0.25 mcg capsule Take 1 capsule (0.25 mcg total) by mouth daily 2024 Active traMADoL (ULTRAM) 50 mg tabletIndication s:Chronic left shoulder pain Take 0.5 tablets (25 mg total) by mouth every 8 (eight) hours as needed for pain 45 tablet 03/29 Active blood glucose diagnostic (Easy Touch Test Strip) stripIndications :Type 2 diabetes mellitus with chronic kidney disease on chronic dialysis, with long-term current use of insulin ([facility]) 1 each by other route daily 100 strip 3 2024 Active FreeStyle Madhav 3 [place] misc Use as directed to monitor blood glucose 1 each 2024 Active lancets misc Use to test blood glucose once daily 100 each 1 2024 Active blood-glucose meter (Easy-Touch Blood Glucose Meter) miscIndications: Type 2 diabetes mellitus with chronic kidney disease on chronic dialysis, with long-term current use of insulin ([facility]) Use as directed to test glucose against cgm readings once daily 1 each 1 2024 Active omeprazole (PriLOSEC) 20 mg capsuleIndicatio ns:Gastroesophag eal reflux disease, unspecified whether esophagitis present Take 1 capsule (20 mg total) by mouth daily 90 capsule 09/06 Discontinued FreeStyle Madhav 3 [place] misc Use Madhav 3 reader to scan Madhav 3 sensor 03/20 Discontinued( Reorder) meclizine (ANTIVERT) 25 mg tablet Take 1 tablet (25 mg total) by mouth daily for 5 days 5 tablet 02/27 Discontinued( Patient Reported) blood glucose diagnostic (Easy Touch Test Strip) stripIndications :Type 2 diabetes mellitus with chronic kidney disease on chronic dialysis, with long-term current use of insulin ([facility]) 1 each by other route daily 100 strip 3 03/20 Discontinued( Reorder) traMADoL (ULTRAM) 25 mg tablet Take 1 tablet (25 mg total) by mouth 02/27 Discontinued( Reorder) traMADoL (ULTRAM) 25 mg tabletIndication s:Chronic left shoulder pain Take 1 tablet (25 mg total) by mouth every 8 (eight) hours as needed for pain 90 tablet 02/27 Discontinued blood-glucose meter (Easy-Touch Blood Glucose Meter) misc Use as directed to test glucose against cgm readings once daily 100 each 1 03/21 Discontinued( Reorder) blood-glucose meter (Easy-Touch Blood Glucose Meter) miscIndications: Type 2 diabetes mellitus with chronic kidney disease on chronic dialysis, with long-term current use of insulin (HCC) Use as directed to test glucose against cgm readings once daily 100 each 1 03/22 Discontinued Active Problems Problem Noted Date Diagnosed Date Type 2 diabetes mellitus wit h chronic kidney disease on chronic dialysis, with long-term current use of insulin 12/25/2024 Frailty 11/29/2024 Assessment & Plan (02/27/2025 1:04 PM CDT): Lives with daughter who is her main caregiver Metabolic syndrome 11/01/2024 Neuropathy involving both lower extremities 10/20 Hypochloremia 11/01/2024 Hyponatremia 11/01/2024 Lightheadedness 11/01/2024 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 mellitus 07/22/2024 Assessment & Plan (02/27/2025 11:37 AM CDT): Following with optho Assessment & Plan (10/24/2024 11:09 AM CDT): Following with optho Ulcer of esophagus without bleeding 07/18/2024 ESRD (end stage renal disease) on dialysis 07/14 Assessment & Plan (02/27/2025 11:37 AM CDT): Following with nephrology Type 2 diabetes mellitus wit h diabetic nephropathy, without long-term current use of insulin 07/07/2024 Hyperlipidemia associated with type 2 diabetes m saba 07/07/2024 Assessment & Plan (02/27/2025 11:36 AM CDT): on atorvastatin Assessment & Plan (10/24/2024 11:30 AM CDT): Preivously discussed ok to restart atorvastatin, but also given overall health status reasonable to continue holding, especially if had side effects with restarting Assessment & Plan (07/14/2024 2:30 PM MICA INSPECTOR): Continue Lipitor Assessment & Plan (07/14/2024 8:56 AM MICA INSPECTOR): Ok to restart atorvastatin, but also given overall health status reasonable to continue holding, especially if had side effects with restarting Gastritis without bleeding 06/17/2024 Thalamic stroke 04/22/2024 Debility 04/21/2024 Involuntary movements 03/18/2024 Left hand pain 03/16/2024 Complete tear of left rotator cuff 02/05/2024 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 Patient is minimally symptomatic though does report some urinary frequency and has elevated WBC. She still makes urine despite ESRD. - Bcx NGTD -transition from IV linezolid to PO linezolid; plan for 3 day course Transient loss of consciousness 12/19/2023 Left shoulder pain 12/11/2023 Assessment & Plan (02/27/2025 1:02 PM CDT): Uncontrolled Previously referred to orthopedics In physical therapy Tramadol refilled Assessment & Plan (11/29/2024 5:22 PM CDT): [...] Aug Has home physical therapy/OT set up Tinnitus of both ears 11/04/2023 Mixed conductive and sensori neural hearing loss of both ears 11/04/2023 Dysfunction of both eustachian tubes 11/04/2023 AMS (altered mental status) 10/30/2023 Assessment & Plan (05/06/2024 7:49 AM MICA INSPECTOR): Reviewed hospital discharge summary Now resolved Upcoming appointment with neurology Bandemia 12/20/2022 Shortness of breath 12/13/2022 Chronic diastolic congestive heart failure 12/06 Assessment & Plan (02/27/2025 11:37 AM CDT): Following with cardiology Assessment & Plan (11/29/2024 5:27 PM CDT): Following with cardiology Assessment & Plan (10/24/2024 1:54 PM CDT): Euvolemic Following with cardiology Assessment & Plan (01/05/2024 10:46 PM CDT): Patient euvolemic at this time. -continue coreg, nifedipine, hydralazine for BP control -nephrology c/s for HD Bibasilar consolidations 12/06/2022 Movement disorder 12/06/2022 Anemia in chronic kidney disease, on chronic sara lysis 10/10/2022 Assessment & Plan (11/12/2023 1:01 PM CDT): Last h/h stable Assessment & Plan (07/24/2023 1:51 PM MICA INSPECTOR): Chronic/stable Parkinsonism 08/14/2022 Assessment & Plan (02/27/2025 11:37 AM CDT): Following with neurology Assessment & Plan (10/24/2024 10:57 AM CDT): Following with neurology Assessment & Plan (07/14/2024 8:54 AM MICA INSPECTOR): Following with neurology, recommend reaching out to them in regards to restarting benztropine. Consider waiting until after restarts other medications given daughter reports tremors controlled off benztropine currently Assessment & Plan (11/10/2023 4:43 PM CDT): Following with neurology On cogentin Assessment & Plan (07/24/2023 1:50 PM MICA INSPECTOR): Following with neurology On cogentin twice a day Assessment & Plan (01/23/2023 9:20 AM CDT): Following with neurology On cogentin twice a day Assessment & Plan (10/10/2022 10:41 AM CDT): Following with neurology On cogentin Assessment & Plan (08/14/2022 10:46 AM MICA INSPECTOR): Following with neurology, reviewed note On cogentin [...] walker. - PT/OT recommends SNF. -Plan [facility] on 11/26 ? Assessment & Plan (11/24/2021 2:07 PM CDT): Deconditioning 2/2 prolonged hospitalization. Daughter reports that prior to her illness, she was independent with a walker. - PT/OT recommends SNF. -Plan [facility]ued[facility] on 11/25. Assessment & Plan (11/23/2021 12:24 PM CDT): Deconditioning 2/2 prolonged hospitalization. Daughter reports that prior to her illness, she was independent with a walker. - PT/OT recommends SNF. -Estefany Romeo [facility] on 11/25. Assessment & Plan (11/22/2021 1:34 [...] care Assessment & Plan (08/14/2022 10:47 AM MICA INSPECTOR): Following with podiatry Assessment & Plan (04/02/2022 [...] consulted regarding volume management, possible termite control servicer dialysis planning, expedite OP f/u. Serologies and urine studies ordered. ED neg, compliments neg, cryoglobulin pending, ANCA pending, HIV neg. Continued -Added metolazone 2.5mg/daily per renal 09/13- with improving swelling, Cr bump to 2.33 so held further -Transitioned to PO agents prior to DC (09/17) with ongoing clinical improvement. Goal weight 155lbs -Home with family at [place], ditch repairer consulted to review salt restrictions. -outpatient BMP, [...] consulted regarding volume management, possible termite control servicer dialysis planning, expedite OP f/u. Serologies and urine studies ordered. ED neg, compliments neg, cryoglobulin pending, ANCA pending, HIV neg. Continued -Added metolazone 2.5mg/daily per renal 09/13- with improving swelling, Cr bump to 2.33 so held further -Anticipate likely transition to PO agents prior to DC (?09/17) with ongoing clinical improvement. Goal weight 155lbs -Home with family at [place], ditch repairer consulted to review salt restrictions. Assessment & [...] consulted regarding volume management, possible termite control servicer dialysis planning, expedite OP f/u. Serologies and urine studies ordered. -Added metolazone 2.5mg/daily per renal. -Anticipate likely transition to PO agents prior to DC with ongoing clinical improvement. Goal weight 145-150lbs -Home with family at [place], ditch repairer consulted to review salt restrictions. Assessment & [...] consulted regarding volume management, possible termite control servicer dialysis planning, expedite OP f/u. Serologies and [...] consulted regarding volume management, possible termite control servicer dialysis planning, expedite OP f/u. Assessment & [...] 1/2-1L/day. -consider renal consult regarding termite control servicer dialysis planning, expedite OP f/u. Assessment & [...] 1/2-1L/day. -consider renal consult regarding termite control servicer dialysis planning. 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 -continue risperidone 2mg QHS -continue benztropine 2mg daily Assessment & Plan (11/10/2023 4:37 PM CDT): Following with neurology Assessment & Plan (07/24/2023 1:50 PM MICA INSPECTOR): Following with neurology Assessment & Plan (01/23/2023 9:18 AM CDT): Following with neurology Assessment & Plan (10/10/2022 10:37 AM CDT): Following with neurology, ordered MRI, # given to son to schedule Assessment & Plan (06/09/2022 3:37 PM MICA INSPECTOR): Needs to reschedule with neurology Looking into retirement, but declined for [facility] for schizoaffective disorder Assessment & Plan (01/14/2022 9:05 AM CDT): Following with psychiatry Assessment & Plan (09/03/2021 3:28 PM CDT): Chronic, stable. Alert, oriented to self, current place. Continue to monitor. Clock drawing test at next interval. Consideration for Aricept. Encounter for Medicare annual wellness exam 12/21 Assessment & Plan (10/24/2024 11:13 AM CDT): Reviewed PM & PHQ Screening PHQ-2 [...] needed Assessment & Plan (06/09/2022 3:37 PM MICA INSPECTOR): Reviewed PMH & PHQ Screening PHQ-2 Total [...] Schizoaffective disorder, bipolar type Assessment & Plan (02/27/2025 11:37 AM CDT): Following with psychiatry Assessment & Plan (10/24/2024 10:57 AM CDT): Following with psychiatry Assessment & Plan (08/18/2024 8:44 AM MICA INSPECTOR): Chronic, stable. Does not report any stephanie [...] discussed. Assessment & Plan (07/14/2024 8:54 AM MICA INSPECTOR): Following with psychiatry, recommend reaching out to [...] psychiatry Assessment & Plan (07/24/2023 1:50 PM MICA INSPECTOR): Following with psychiatry Assessment & Plan (01/23/2023 [...] discussed. Assessment & Plan (08/09/2021 5:42 AM MICA INSPECTOR): Following with psychiatry Assessment & Plan (08/07/2021 3:28 PM MICA INSPECTOR): Chronic condition, switch to Haldol and has had multiple different problems including acute kidney failure in infectious process. Records not available at outside hospital-[facility]. Confounded by delirium. Currently experiencing delirium will discontinue Haldol and return to Risperdal as previously taking. Risperdal was discontinued due to poorly-controlled diabetes. Monitor in 1 to 2 weeks. Assessment & Plan (07/03/2021 7:24 AM MICA INSPECTOR): Following with psychiatry D/c risperidone, started on haldol Assessment & Plan (07/01/2021 9:16 PM MICA INSPECTOR): Chronic, stable. 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 The patient previously lived on her own and was observed to be hoarding. See additional problems-dementia. Evaluate again in 1 month after starting Risperdal. Iron deficiency anemia 04/02/2020 Assessment & Plan (05/06/2024 7:51 AM MICA INSPECTOR): Recommend discussing IV iron with nephrology Assessment & Plan (10/02/2020 4:35 PM CDT): Continue iron Assessment & Plan (05/28/2020 1:51 PM MICA INSPECTOR): Iron levels recently normalized, but still anemic, repeat today Assessment & Plan (04/16/2020 11:45 AM CDT): Recent iron within normal limits, H/H improving, continue supplementation until normalized Gastroesophageal reflux disease without esophagi tis 04/02/2020 Assessment & Plan (02/27/2025 11:37 AM CDT): continue protonix Following with GI Assessment & Plan (10/24/2024 10:57 AM CDT): continue protonix Following with GI Assessment & Plan (07/14/2024 8:56 AM MICA INSPECTOR): Restart protonix Upcoming EGD Assessment & Plan (01/05/2024 10:40 PM CDT): -continue famotidine Assessment & Plan (10/02/2020 4:35 PM CDT): Continue omeprazole Assessment & Plan (07/24/2020 2:06 PM MICA INSPECTOR): Recurrent symptoms off omeprazole, restart Assessment & Plan (05/28/2020 1:51 PM MICA INSPECTOR): Iron levels recently normalized, but still anemic, repeat today Assessment & Plan (04/02/2020 1:26 PM CDT): Start PPI History of amputation of toe 01/19/2020 Assessment & Plan (01/08/2021 3:50 PM CDT): Stable Assessment & Plan (10/02/2020 4:35 PM CDT): Stable Assessment & Plan (04/30/2020 1:00 PM MICA INSPECTOR): Stable Assessment & Plan (02/14/2020 5:15 PM CDT): Healing well Following with surgeon/wound clinic Assessment & Plan (01/19/2020 5:17 PM CDT): Has home health Following with vascular Hypertension associated with diabetes 12/13/2019 Assessment & Plan (02/27/2025 11:36 AM CDT): Continue hydralazine 50mg twice a day & coreg 6.25mg Assessment & Plan (11/29/2024 5:21 PM CDT): BP uncontrolled Continue hydralazine 50mg twice a day Increase coreg back to 6.25mg Monitor blood pressure at home, let me know if persistently high or if becomes low Assessment & Plan (10/24/2024 11:12 AM CDT): BP controlled Assessment & Plan (07/14/2024 2:32 PM MICA INSPECTOR): Continue carvedilol, hydralazine Assessment & Plan (07/14/2024 8:51 AM MICA INSPECTOR): BP controlled today off medication Daughter reports nephrology said could restart medication, is planning to restart coreg first and monitor blood pressure prior to restarting nifedipine/hydralazine Assessment & Plan (05/06/2024 7:48 AM MICA INSPECTOR): BP controlled Continue nifedipine, hold prior to [...] x1 with HD. Most recent admission at [facility] with initiation of hydralazine and nifedipine [...] amlodipine Assessment & Plan (08/03/2023 4:02 PM MICA INSPECTOR): BP uncontrolled Start 5mg amlodipine Assessment & Plan (07/24/2023 1:49 PM MICA INSPECTOR): Blood pressure borderline today off medications Assessment & Plan (01/23/2023 9:18 AM CDT): Blood pressure borderline low today, asymptomatic Checking labs Advised to decrease amlodipine to 5mg and monitor blood pressure Assessment & Plan (10/10/2022 10:50 AM CDT): Continue coreg 6.25mg twice a day & 40mg valsartan Assessment & Plan (08/14/2022 10:43 AM MICA INSPECTOR): Blood pressure at goal, continue coreg 6.25mg twice a day Assessment & Plan (06/09/2022 3:32 PM MICA INSPECTOR): Blood pressure at goal, continue coreg 3.125mg [...] day Assessment & Plan (08/05/2021 10:35 AM MICA INSPECTOR): Blood pressure at goal Increase amlodipine to 10mg & d/c hydralazine per cardiology Assessment & Plan (05/28/2021 4:59 PM MICA INSPECTOR): Blood pressure above goal, but previously within [...] lisinopril Assessment & Plan (08/28/2020 12:12 PM MICA INSPECTOR): Blood pressure at goal Continue lisinopril Assessment & Plan (07/24/2020 2:05 PM MICA INSPECTOR): Blood pressure at goal Continue lisinopril Assessment & Plan (05/28/2020 1:50 PM MICA INSPECTOR): BP borderline Continue 10mg lisinopril Continue to monitor Assessment & Plan (04/30/2020 12:32 PM MICA INSPECTOR): BP borderline Continue 10mg lisinopril Continue to [...] use of insulin 08/30/2019 Assessment & Plan (02/27/2025 11:35 AM CDT): Following with endocrine Assessment & Plan (11/29/2024 5:23 PM CDT): Resume previous insulin dosing now that she is back home Following with endocrine, upcoming appointment next month Assessment & Plan (10/24/2024 10:56 AM CDT): Following with endocrine Assessment & Plan (07/14/2024 2:31 PM MICA INSPECTOR): Controlled. Continue as per Endocrine and PCP Assessment & Plan (07/14/2024 8:50 AM MICA INSPECTOR): Following with endocrine, reviewed note Holding insulin [...] +SSI Assessment & Plan (07/24/2023 1:49 PM MICA INSPECTOR): Lab Results Component Value Date HGBA1C 8.1 [...] trulicity Assessment & Plan (08/14/2022 10:42 AM MICA INSPECTOR): Following with endocrine Continue lantus, 12 units humalog TIDAC & 1.5mg trulicity Assessment & Plan (06/09/2022 3:32 PM MICA INSPECTOR): Following with endocrine Home blood sugar at [...] at [place] reviewed with daughter this admit. Assessment & [...] at [place] reviewed with daughter this admit. Assessment & [...] nephropathy. Med oversight by family at [place]. Assessment & Plan (09/14/2021 12:22 PM CDT): [...] as she had discussed this with outpatient cloud operations engineer - repeat A1c - resume home statin, not currently on feliciano due to kidney function Assessment & Plan (08/05/2021 10:35 AM MICA INSPECTOR): Continue 15 units lantus twice a day Assessment & Plan (07/03/2021 7:24 AM MICA INSPECTOR): Fasting blood sugar significantly improved Risperidone changed Continue current meds Continue to monitor Assessment & Plan (06/18/2021 11:22 AM MICA INSPECTOR): Increase lantus to 60 units nightly, if blood sugar still above goal after 1 week split into 33 units twice a day Follow up with blood sugar via portal in 2 weeks Continue jardiance 25mg Continue trulicity 4.5mg weekly Assessment & Plan (05/28/2021 4:58 PM MICA INSPECTOR): Increase lantus to 55 units nightly Continue [...] weekly Assessment & Plan (08/28/2020 1:00 PM MICA INSPECTOR): DM Care Plan: Meds: Lantus - continue [...] recheck Assessment & Plan (07/24/2020 2:05 PM MICA INSPECTOR): Formulary change 2/2 insurance, switched to trulicity. Will increase to 1.5mg Assessment & Plan (05/28/2020 1:50 PM MICA INSPECTOR): Check a1c Barbara isn't checking blood sugar regularly, but when she is she has several >200 so I lean towards increasing if a1c>7 Assessment & Plan (04/30/2020 12:31 PM MICA INSPECTOR): Blood sugar improved on 40 units basaglar [...] Follow up 1 week for reassessment Wheezing Immunizations Immunization Administration Dates Next Due Heplisav-b (Hepatitis B) 03/10/2024,12/20,12/10/2023,11/04 Influenza Nasal, Unspecified 04/17/2017 Influenza, Quadrivalent, Hig h Dose, Preservative Free, Intrr 08/07/2022,04/01/2022,03/07/2021,04/02 Influenza, Trivalent, Adjuva nted, Intramuscular 04/05/2024,04/06/2019 Influenza, Trivalent, High D ose, Split, Preservative Free, Intramuscular 02/27/2025 Influenza, Trivalent, IM (MDV) 04/17/2017 PPD TEST [...] Recorded In the past 12 months has [employer], gas, oil, or water [employer] threatened to shut off services in your home? Yes 11/07/2024 Social Connection and Isolation Panel Answer Date Recorded In a typical week, how many times do you talk on the phone with family, friends, or neighbors? Patient unable to answer 11/07/2024 How often do you get togethe r with friends or relatives? Patient unable to answer 11/07/2024 How often do you attend [facility] or [facility] services? Patient unable to answer 11/07/2024 Do [...] a senior living (including now)? No 10/30/2023 PHQ-9 Answer Date [...] in a senior living (including now)? No 11/07/2024 Personal Safety Answer Date Recorded Have you ever been in or are you currently in a harmful physical or emotional relationship or is someone making you feel afraid or unsafe? Denies 11/01/2024 Comments No Sex and Gender Information Value Date Recorded Sex Assigned at Not on file Legal Sex Female 9:03 AM MICA INSPECTOR Gender Identity Female 02/08/2020 6:39 PM CDT Sexual Orientation Not on file Last Filed Vital Signs Vital Sign Reading Time Taken Comments Blood Pressure 132/64 02/27/2025 11:12 AM CDT Pulse 63 02/27/2025 11:12 AM CDT Temperature 36.1 C (97 F) 02/27/2025 11:12 AM CDT Respiratory Rate 18 11/29/2024 3:48 PM CDT Oxygen Saturation 97% 02/27/2025 11: 12 AM CDT Inhaled Oxygen Concentration - - Weight 64.8 kg (142 lb 14.4 oz) 025 11:12 AM CDT Height 157.5 cm (5' 2) 02/27/2025 11:1 2 AM CDT Body Mass Index 26.14 02/27/2025 11:12 AM CDT Results * XR Chest PA Lateral 2 Views (02/27/2025 1:14 PM CDT) Anatomical Region Laterality Modality Body, Chest N/A Computed Radiogr aphy 02/27/2025 2:25 PM CDT Narrative 02/27/2025 2:26 PM CDT EXAM DESCRIPTION: XR CHEST PA LATERAL 2 VIEWS REASON FOR STUDY: Shortness of breath for several weeks TECHNIQUE: AP and lateral radiographic view(s) of the chest. COMPARISON: 11/01/2024 and 10/24/2024. FINDINGS: LUNGS: There is no focal consolidation. No effusion or pneumothorax. HEART/MEDIASTINUM: Cardiac silhouette and mediastinal contours are within normal limits. LINES/TUBES: Right PermCath in place. Distal tip at the right atrium. BONES: Degenerative changes in the shoulders. No acute osseous abnormality. IMPRESSION: No acute cardiopulmonary abnormality. THIS IS AN ELECTRONICALLY VERIFIED FINAL REPORT 02/27/2025 2:26 PM - Electronically signed by Rafaela Paulino M.D. TW: FAIZAN Report ID: [id number] Reading Location: [id number] Procedure Note Rafaela Paulino MD - 02/27/2025 EXAM DESCRIPTION: XR CHEST PA LATERAL 2 VIEWS REASON FOR STUDY: Shortness of breath for several weeks TECHNIQUE: AP and lateral radiographic view(s) of the chest. COMPARISON: 11/01/2024 and 10/24/2024. FINDINGS: LUNGS: There is no focal consolidation. No effusion or pneumothorax. HEART/MEDIASTINUM: Cardiac silhouette and mediastinal contours are within normal limits. LINES/TUBES: Right PermCath in place. Distal tip at the right atrium. BONES: Degenerative changes in the shoulders. No acute osseousabnormality. IMPRESSION: No acute cardiopulmonary abnormality. THIS IS AN ELECTRONICALLY VERIFIED FINAL REPORT 02/27/2025 2:26 PM - Electronically signed by Rafaela Paulino M.D. TW: TW Report ID: [id number] Reading Location: [id number] Cherelle Corcoran MD IMG XR PROCEDURES Final Result * (ABNORMAL) DIABETES EYE EXAM (01/20/2025 11:51 AM CDT) Pathologist [facility] SCRIBED DIABETIC DILATED EYE EXAM Abnormal Historical Provider HEALTH MAINTENANCE Final Result * POCT glucose (12/26/2024 9:39 AM CDT) Pathologist [facility] Glucose Blood, POC 242 Normal Fasting 70 - 100, Random <200 mg/dL Blood 12/26/2024 9:39 AM CDT Smith Gibbs MD POINT OF CARE TEST ORDERABLE S Final Result * (ABNORMAL) eGFR (11/25/2024 12:58 PM CDT) Pathologist [facility] eGFR 7(L) >=60 mL/min/1. 73 m2 [...] reviewed 2021. Testing performed by: [facility], [address] [place] [address]., [id number] Blood 11/25/2024 12:5 8 PM CDT 11/25/2024 2:12 PM CDT us Notinfile Unknown LAB BLOOD ORDERABLES Final Res ult NILSA RODRIGES [address] [facility] Department [place] [address] * (ABNORMAL) Hemoglobin A1c (11/01/2024 10:05 PM CDT) Hgb A1C 7.1(H) 4.0 - 5.6 % Estimated Average Glucose 157 mg/dL NILSA RODRIGES Comment: The ADA recommends reporting an estimated Average Glucose (eAG) with all Hemoglobin A1c results using the equation derived from a study of 507 normal and diabetic adults. Minority populations were underrepresented and children were not included. (Diabetes Care 31:4267-7566, 2008). The eAG is not equivalent to a fasting glucose. Blood 11/01/2024 10:0 5 PM CDT 11/01/2024 10:15 PM CDT us Brad Tabernero Rufin RAIL BONDER LAB BLOOD ORDERABLES Fin al Result NILSA [address] [facility] Department [place] [address] * (ABNORMAL) Lipid panel (11/01/2024 10:05 PM [...] 2018. LDL, calculated 35 <=129 mg/dL NILSA RODRIGES Comment: Interpretive Data Ages [...] LAB BLOOD ORDERABLES Fin al Result NILSA [address] [facility] Department [place] [address] * Colonoscopy (03/01/2024 8:49 AM CDT) Anatomical Region Laterality Modality Other Narrative Procedure Note Jaya Grier MD - 03/01/2024 8:49 AM CDT [facility] GI ENDOSCOPY Patient Name: Barbara Chakraborty Procedure Date: 03/01/2024 8:49 AM Date of : 1950 Admit Type: Outpatient Age: 73 Gender: Female Attending MD: Jaya Grier M.D. Room: [facility] ENDOSCOPY ROOM 06 Note Status: [...] The scope was passed under direct vision.The [id number] colonoscope was introduced through theanus and advanced [...] On: 03/01/2024 8:49 AM Recognized by the [place] [employer] for promoting quality [...] taking vitamin-D. History of end-stage renal disease. 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 TW: TW Report ID: [id number] Reading Location: [place] [address] Procedure Note Rafaela Paulino MD - 01/22/2024 EXAM DESCRIPTION: DEXA AXIAL SKELETON BONE DENSITY 1 OR MORE SITES REASON FOR STUDY: 73 y/o year old F with given history of: Post menopausal status. History of taking vitamin-D. History of end-stagerenal disease. Floor Finisher/Model: [employer] A (S/N [id number]) CLINICAL INFORMATION: Current height: 61 inches Maximum [...] Rafaela Paulino M.D. TW: FAIZAN Report ID: [id number] Reading Location: [id number] Cherelle Corcoran MD IM DXA PROCEDURE S [...] age 40, based on guidelines of the [place] [employer] (ACR Practice Parameter for the Performance of Screening and Diagnostic Mammography) and [place] [employer]. For women [...] revised on 2019. HepBsAg Nonreactive Nonreactive [facility] Blood 10/15/2023 6:50 AM CDT 10/15/2023 7:07 AM CDT Jimbo Strauss MD LAB MICROBIOLOGY - [facility] Final Result Performing Organization Address City/[facility]/ZIP Co de Phone Number NILSA [address] Department [place] [address] * (ABNORMAL) Albumin Creatinine Ratio, Urine (10/10/2022 11:39 AM CDT) Albumin Ur 3,240.2 mg/L NILSA Comment: Interpretive Data No reference range established. Current interpretive data was last revised 2018. Testing performed by: [address] [address] Creatinine Ur 74.8 mg/dL NILSA Comment: Interpretive Data No reference range established. Current interpretive data was last revised 2018. Testing performed by: [address] [address] Albumin Creatinine Ratio, Ur 4,332(H) 1 - 29 mg/g NILSA Comment:Testing performed by : [address] [address] Urine 10/10/2022 11:3 9 AM CDT 10/10/2022 1:45 PM CDT Markie Ryan MD LAB URINE ORDERABLES Final Re sult Performing Organization Address City/[facility]/ZIP Co de Phone Number [facility] [address] [facility] Department [place] [address] from Last 3 Months or Most Recently Relevant to Health Maintenance
--- OUTSIDE RECORDS SUMMARY | 2025-03-27 16:28 | XMS_ITS | Encounter Summary ---
Author Organization [facility] Address [address] [place] [address] Phone Care Team Providers Care Direct Care Professional Name Role Phone Cherelle Corcoran MD Primary Care Pro vider QueenMark Perez MD Unavailable [phone] Brandie Callejas MA Unavailable Unav ailable Xenia Padilla LPN Unavailable [phone] Samples, Melania Joel RN Unavailable [phone] Anam Costa LCSW Unavailable Unavailabl e Samples, Melania Joel RN Unavailable Rudolph Welch MD Unavailable [phone] Markie Ryan MD Unavailable [phone] Nadege Ramírez RN Unavailable [phone] Dulce Vega RN Unavailable Jimbo Strauss MD Unavailable [phone] Jaya Grier MD Unavailable Edgardo Kauffman MD Unavailable [phone] Macrina Mike RN Unavailable Nicolas Edwards RN Unavailable Encounter Details Date Type Department Care Team (Late st Contact Info) Description 12/30/2021 Telephone [facility] Medicine Endocrinology Metabolism and Lipid [address] [facility] 5th [place] [address] [place] [address] Rachael Smith CMA Social History Tobacco Use Types Packs/Day Years Used Date Smoking Tobacco: Never Smokeless Tobacco: Never Alcohol Use Standard Drinks/Week Comments Not Currently 0 (1 standard drink = 0.6 oz pur e alcohol) Social Connection and Isolation Panel Answer Date Recorded In a typical week, how many times do you talk on the phone with family, friends, or neighbors? More than three times a week 09/10/2021 How often do you get togethe r with friends or relatives? More than three times a week 09/10/2021 How often do you attend [facility] ch or sikhism services? Never 09/10/2021 Do [...] file Legal Sex Female 9:03 AM [employer] Gender Identity Female 02/08/2020 6:39 PM [...] COVID: Suspected 05/08/2022 05/08/2022 05/08/2022 4:26 PM [employer] COVID: Suspected 06/19/2022 06/19/2022 06/19/2022 12:37 PM [employer] COVID: Suspected 08/01/2022 08/01/2022 08/01/2022 2:28 PM [employer] COVID: Suspected 10/02/2022 10/02/2022 10/02/2022 8:14 PM CDT MRSA Comment:Toe 11/08/22, 12/12/22 11/08/2022 12/12/2022 06/10/2023 3:05 AM [employer] COVID: Suspected 12/08/2022 12/08/2022 12/08/2022 8:17 PM CDT COVID: Suspected 07/27/2023 07/27/2023 07/28/2023 12:57 AM [employer] COVID: Suspected 10/29/2023 10/30/2023 10/30/2023 10:59 AM CDT 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 12/19/2023 12/19/2023 3:58 PM CDT 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 12/29/2023 06/26/2024 3:05 AM [employer] COVID: Suspected 04/19/2024 04/19/2024 04/20/2024 12:44 AM CDT COVID: Suspected 07/12/2024 07/12/2024 07/12/2024 12:39 PM [employer] COVID: Suspected 07/31/2024 07/31/2024 07/31/2024 2:06 PM [employer] documented as of this encounter Care Teams Direct Care Professional Relationship Specialty Start Date End Date Cherelle Corcoran MD PCP - General Family Medicine 08/30/19 Mark Queen MD Consulting Physician Infectious Diseases 01/10/20 Brandie Callejas MA Patient Funeral Location Manager 06/20/22 06/22/22 Xenia Padilla LPN [address] [place] [address] [address] [place] [address] Silk Screen Frame Assembler 06/24/22 06/24/22 Samples, Melania Joel RN [address] [place] [address] [address] [place] [address] Silk Screen Frame Assembler 07/22/22 08/21/22 Anam Costa LCSW [address] [place] [address] [address] [place] [address] Mobile Device Developer 08/08/22 02/18/23 Samples, Melania Joel RN [address] [place] [address] [address] [place] [address] Silk Screen Frame Assembler 08/22/22 12/07/22 Rudolph Welch MD [address] [facility] [address] [place] [address] Consulting Physician Infectious Diseases 12/05/22 Markie Ryan MD [address] [facility] [address] [place] [address] Consulting Physician Nephrology 12/05/22 Nadege Ramírez RN [address] [place] [address] [address] [place] [address] Silk Screen Frame Assembler 01/20/23 02/23/23 Dulce Vega RN [address] [place] [address] [address] [place] [address] Silk Screen Frame Assembler 10/07/23 05/03/24 [place] [address] [facility] [address] [place] [address] Consulting Physician Nephrology 10/22/23 Jaya Grier MD [address] [facility] [address] [place] [address] Consulting Physician Gastroenterology 02/01/24 Edgardo Kauffman MD [address] [facility] [address] [facility] [address] [place] [address] Surgeon Vascular Surgery 07/15/24 Macrina Mike, ALIREZA [address] [place] [address] [address] [place] [address] Silk Screen Frame Assembler 11/07/24 11/30/24 Nicolas Edwards, ALIREZA [address] [place] [address] [address] [place] [address] Silk Screen Frame Assembler 03/24/25 documented as of this encounter
--- OUTSIDE RECORDS SUMMARY | 2025-03-27 16:28 | XMS_ITS | Clinical Summary ---
Author Organization [facility] Address [address] [place] [address] Care Team Providers Care Mail Room Name Role Phone Cherelle Corcoran MD Primary Care Provider [phone] Social History Tobacco Use Types Packs/Day Years Used Date Smoking Tobacco: Never Assessed Comments Unknown Sex and Gender Information Value Date Recorded Sex Assigned at Not on file Legal Sex Female 1:41 PM CDT Gender Identity Not on file Sexual Orientation Not on file Plan of Treatment Health Maintenance Due Date Last Done Comments Colorectal Cancer Screening Colonoscopy (10 Years) 1950 DTaP, Tdap and Td Vaccines (1 - Tdap) 1969 Zoster Vaccines (1 of 2) 2000 RSV Immunization or 60+ Years (1 - Risk 60-74 years 1-dose series) 2010 Annual Medicare Wellness Visit 10/29/2015 PHQ-2 (Physician [facility]) 06/22/2024 COVID-19 Vaccine ( season) 2025 06/11/2021, 10/13/2020, 09/22/2020 Mammogram Screening 01/21/2026 01/22/2024, 09/25/2022, 01/08/2021, Additional [...] this topic Insurance MEDICARE MEDICAID Care Teams Mail Room Relationship Specialty [place] [address] [place] [id number] PCP - General FAMILY PRACTICE 09/27/19
--- OUTSIDE RECORDS SUMMARY | 2025-03-27 16:28 | XMS_ITS | Clinical Summary ---
Author Organization [facility] Address [address] [place] [address] Care Team Providers Care Mathematics Professor Name Role Phone Cherelle Corcoran MD Primary Care Pro vider Mark Queen MD Unavailable [phone] Rudolph Welch MD Unavailable Markie Ryan MD Unavailable Jimbo Strauss MD Unavailable [phone] Jaya Grier MD Unavailable Edgardo Kauffman MD Unavailable Nicolas Edwards RN Unavailable Allergies No known active allergies Medications pen [...] polyneuropathy associated with type 2 diabetes mellitus ([facility]) TAKE 1 CAPSULE BY MOUTH 3 TIMES PER WEEK AFTER HEMODIALYSIS 40 capsule 1 2023 Active atorvastatin (LIPITOR) 20 mg tablet Take 1 tablet (20 mg total) by mouth nightly 2023 Active blood-glucose sensor (FreeStyle Madhav 3 Plus Sensor) deviceIndication s:Type 2 diabetes mellitus with diabetic nephropathy, with long-term current use of insulin ([facility]) Use to continually monitor glucose, change sensor [...] long-term current use of insulin ([facility]) Inject 4 units SQ before meals along [...] 6.25 mg tabletIndication s:Hypertension associated with diabetes ([facility]) Take 1 tablet (6.25 mg total) by mouth 2 (two) times a day with meals 180 tablet 11/29 Active aspirin 81 mg chewable tablet CHEW AND SWALLOW 1 TABLET(81 MG) BY MOUTH DAILY 90 tablet 1 2024 Active lidocain-me.juanita lmd-ujca-agccu 4-20-0.025-5 % adhesive patch,medicated Apply 1 patch topically 2024 Active risperiDONE (RisperDAL) 2 mg tablet Take 1 tablet (2 mg total) by mouth nightly 30 tablet 11 01/26 Active benztropine (COGENTIN) 2 mg tablet Take 1 tablet (2 mg total) by mouth nightly 30 tablet 01/26 Active calcitRIOL (ROCALTROL) 0.25 mcg capsule [...] strip 3 2024 Active FreeStyle Madhav 3 [place] misc Use as directed to monitor blood [...] 90 capsule 09/06 Discontinued FreeStyle Madhav 3 [place] misc Use Madhav 3 reader to scan [...] diabetes jose walter 07/07/2024 Assessment & Plan (02/27/2025 11:36 AM CDT): on atorvastatin Assessment & Plan (10/24/2024 11:30 AM CDT): Preivously discussed ok to restart atorvastatin, but also given overall health status reasonable to continue holding, especially if had side effects with restarting Assessment & Plan (07/14/2024 2:30 PM MATHEMATICAL SCIENCES PROFESSOR): Continue Lipitor Assessment & Plan (07/14/2024 8:56 AM MATHEMATICAL SCIENCES PROFESSOR): Ok to restart atorvastatin, but also [...] 10/30/2023 Assessment & Plan (05/06/2024 7:49 AM MATHEMATICAL SCIENCES PROFESSOR): Reviewed hospital discharge summary Now resolved [...] stable Assessment & Plan (07/24/2023 1:51 PM MATHEMATICAL SCIENCES PROFESSOR): Chronic/stable Parkinsonism 08/14/2022 Assessment & Plan (02/27/2025 11:37 AM CDT): Following with neurology Assessment & Plan (10/24/2024 10:57 AM CDT): Following with neurology Assessment & Plan (07/14/2024 8:54 AM MATHEMATICAL SCIENCES PROFESSOR): Following with neurology, recommend reaching out to them in regards to restarting benztropine. Consider waiting until after restarts other medications given daughter reports tremors controlled off benztropine currently Assessment & Plan (11/10/2023 4:43 PM CDT): Following with neurology On cogentin Assessment & Plan (07/24/2023 1:50 PM MATHEMATICAL SCIENCES PROFESSOR): Following with neurology On cogentin twice a day Assessment & Plan (01/23/2023 9:20 AM CDT): Following with neurology On cogentin twice a day Assessment & Plan (10/10/2022 10:41 AM CDT): Following with neurology On cogentin Assessment & Plan (08/14/2022 10:46 AM MATHEMATICAL SCIENCES PROFESSOR): Following with neurology, reviewed note On [...] a walker. - PT/OT recommends SNF. -Plan [facility] on 11/26 ? Assessment & Plan (11/24/2021 2:07 PM CDT): Deconditioning 2/2 prolonged hospitalization. Daughter reports that prior to her illness, she was independent with a walker. - PT/OT recommends SNF. -Plan [facility] on 11/25. Assessment & Plan (11/23/2021 12:24 PM CDT): Deconditioning 2/2 prolonged hospitalization. Daughter reports that prior to her illness, she was independent with a walker. - PT/OT recommends SNF. -Plan [facility] on 11/25. Assessment & Plan [...] care Assessment & Plan (08/14/2022 10:47 AM MATHEMATICAL SCIENCES PROFESSOR): Following with podiatry Assessment & Plan [...] Goal weight 155lbs -Home with family at [place], lab technician consulted to review salt restrictions. -outpatient [...] Goal weight 155lbs -Home with family [place], lab technician consulted to review salt restrictions. Assessment [...] weight 145-150lbs -Home with family at [place], lab technician consulted to review salt restrictions. Assessment [...] neurology Assessment & Plan (07/14/2024 8:53 AM MATHEMATICAL SCIENCES PROFESSOR): Following with neurology Assessment & Plan (01/05/2024 10:40 PM CDT): Follows with neurology. -continue risperidone 2mg QHS -continue benztropine 2mg daily Assessment & Plan (11/10/2023 4:37 PM CDT): Following with neurology Assessment & Plan (07/24/2023 1:50 PM MATHEMATICAL SCIENCES PROFESSOR): Following with neurology Assessment & Plan (01/23/2023 9:18 AM CDT): Following with neurology Assessment & Plan (10/10/2022 10:37 AM CDT): Following with neurology, ordered MRI, # given to son to schedule Assessment & Plan (06/09/2022 3:37 PM MATHEMATICAL SCIENCES PROFESSOR): Needs to reschedule with neurology Looking into prison, but declined for [facility] for schizoaffective disorder Assessment & Plan (01/14/2022 9:05 AM CDT): Following with psychiatry Assessment & Plan (09/03/2021 3:28 PM CDT): Chronic, stable. Alert, oriented to self, current place. Continue to monitor. Clock drawing test at next interval. Consideration for Aricept. Encounter for Medicare annual wellness exam 12/21 Assessment & Plan (10/24/2024 11:13 AM CDT): Reviewed [facility] & PHQ Screening PHQ-2 Total Score (If [...] needed Assessment & Plan (06/09/2022 3:37 PM MATHEMATICAL SCIENCES PROFESSOR): Reviewed PM & PHQ Screening PHQ-2 Total [...] psychiatry Assessment & Plan (08/18/2024 8:44 AM MATHEMATICAL SCIENCES PROFESSOR): Chronic, stable. Does not report any [...] discussed. Assessment & Plan (07/14/2024 8:54 AM MATHEMATICAL SCIENCES PROFESSOR): Following with psychiatry, recommend reaching out [...] psychiatry Assessment & Plan (07/24/2023 1:50 PM MATHEMATICAL SCIENCES PROFESSOR): Following with psychiatry Assessment & Plan [...] discussed. Assessment & Plan (08/09/2021 5:42 AM MATHEMATICAL SCIENCES PROFESSOR): Following with psychiatry Assessment & Plan (08/07/2021 3:28 PM MATHEMATICAL SCIENCES PROFESSOR): Chronic condition, switch to Haldol and has had multiple different problems including acute kidney failure in infectious process. [facility] Confounded by delirium. Currently experiencing delirium will discontinue Haldol and return to Risperdal as previously taking. Risperdal was discontinued due to poorly-controlled diabetes. Monitor in 1 to 2 weeks. Assessment & Plan (07/03/2021 7:24 AM MATHEMATICAL SCIENCES PROFESSOR): Following with psychiatry D/c risperidone, started on haldol Assessment & Plan (07/01/2021 9:16 PM MATHEMATICAL SCIENCES PROFESSOR): Chronic, stable. +persistent auditory hallucinations Discontinue [...] Reviewed all of those notes-primary care doctor, display designer outside, coffee host. The patient previously lived on her own and was observed to be hoarding. See additional problems-dementia. Evaluate again in 1 month after starting Risperdal. Iron deficiency anemia 04/02/2020 Assessment & Plan (05/06/2024 7:51 AM MATHEMATICAL SCIENCES PROFESSOR): Recommend discussing IV iron with nephrology Assessment & Plan (10/02/2020 4:35 PM CDT): Continue iron Assessment & Plan (05/28/2020 1:51 PM MATHEMATICAL SCIENCES PROFESSOR): Iron levels recently normalized, but still [...] GI Assessment & Plan (07/14/2024 8:56 AM MATHEMATICAL SCIENCES PROFESSOR): Restart protonix Upcoming EGD Assessment & Plan (01/05/2024 10:40 PM CDT): -continue famotidine Assessment & Plan (10/02/2020 4:35 PM CDT): Continue omeprazole Assessment & Plan (07/24/2020 2:06 PM MATHEMATICAL SCIENCES PROFESSOR): Recurrent symptoms off omeprazole, restart Assessment & Plan (05/28/2020 1:51 PM MATHEMATICAL SCIENCES PROFESSOR): Iron levels recently normalized, but still anemic, repeat today Assessment & Plan (04/02/2020 1:26 PM CDT): Start PPI History of amputation of toe 01/19/2020 Assessment & Plan (01/08/2021 3:50 PM CDT): Stable Assessment & Plan (10/02/2020 4:35 PM CDT): Stable Assessment & Plan (04/30/2020 1:00 PM MATHEMATICAL SCIENCES PROFESSOR): Stable Assessment & Plan (02/14/2020 5:15 [...] controlled Assessment & Plan (07/14/2024 2:32 PM MATHEMATICAL SCIENCES PROFESSOR): Continue carvedilol, hydralazine Assessment & Plan (07/14/2024 8:51 AM MATHEMATICAL SCIENCES PROFESSOR): BP controlled today off medication Daughter reports nephrology said could restart medication, is planning to restart coreg first and monitor blood pressure prior to restarting nifedipine/hydralazine Assessment & Plan (05/06/2024 7:48 AM MATHEMATICAL SCIENCES PROFESSOR): BP controlled Continue nifedipine, hold prior [...] x1 with HD. Most recent admission at [facility] with initiation of hydralazine and [...] amlodipine Assessment & Plan (08/03/2023 4:02 PM MATHEMATICAL SCIENCES PROFESSOR): BP uncontrolled Start 5mg amlodipine Assessment & Plan (07/24/2023 1:49 PM MATHEMATICAL SCIENCES PROFESSOR): Blood pressure borderline today off medications Assessment & Plan (01/23/2023 9:18 AM CDT): Blood pressure borderline low today, asymptomatic Checking labs Advised to decrease amlodipine to 5mg and monitor blood pressure Assessment & Plan (10/10/2022 10:50 AM CDT): Continue coreg 6.25mg twice a day & 40mg valsartan Assessment & Plan (08/14/2022 10:43 AM MATHEMATICAL SCIENCES PROFESSOR): Blood pressure at goal, continue coreg 6.25mg twice a day Assessment & Plan (06/09/2022 3:32 PM MATHEMATICAL SCIENCES PROFESSOR): Blood pressure at goal, continue coreg [...] day Assessment & Plan (08/05/2021 10:35 AM MATHEMATICAL SCIENCES PROFESSOR): Blood pressure at goal Increase amlodipine to 10mg & d/c hydralazine per cardiology Assessment & Plan (05/28/2021 4:59 PM MATHEMATICAL SCIENCES PROFESSOR): Blood pressure above goal, but previously [...] lisinopril Assessment & Plan (08/28/2020 12:12 PM MATHEMATICAL SCIENCES PROFESSOR): Blood pressure at goal Continue lisinopril Assessment & Plan (07/24/2020 2:05 PM MATHEMATICAL SCIENCES PROFESSOR): Blood pressure at goal Continue lisinopril Assessment & Plan (05/28/2020 1:50 PM MATHEMATICAL SCIENCES PROFESSOR): BP borderline Continue 10mg lisinopril Continue to monitor Assessment & Plan (04/30/2020 12:32 PM MATHEMATICAL SCIENCES PROFESSOR): BP borderline Continue 10mg lisinopril Continue [...] endocrine Assessment & Plan (07/14/2024 2:31 PM MATHEMATICAL SCIENCES PROFESSOR): Controlled. Continue as per Endocrine and PCP Assessment & Plan (07/14/2024 8:50 AM MATHEMATICAL SCIENCES PROFESSOR): Following with endocrine, reviewed note Holding [...] +SSI Assessment & Plan (07/24/2023 1:49 PM MATHEMATICAL SCIENCES PROFESSOR): Lab Results Component Value Date HGBA1C [...] trulicity Assessment & Plan (08/14/2022 10:42 AM MATHEMATICAL SCIENCES PROFESSOR): Following with endocrine Continue lantus, 12 units humalog TIDAC & 1.5mg trulicity Assessment & Plan (06/09/2022 3:32 PM MATHEMATICAL SCIENCES PROFESSOR): Following with endocrine Home blood sugar [...] for strict med oversight by family at [place] reviewed with daughter this admit. Assessment & [...] for strict med oversight by family at [place] reviewed with daughter this admit. Assessment & [...] and nephropathy. Med oversight by family at [place]. Assessment & Plan (09/14/2021 12:22 PM CDT): [...] as she had discussed this with outpatient law secretary - repeat A1c - resume home statin, not currently on feliciano due to kidney function Assessment & Plan (08/05/2021 10:35 AM MATHEMATICAL SCIENCES PROFESSOR): Continue 15 units lantus twice a day Assessment & Plan (07/03/2021 7:24 AM MATHEMATICAL SCIENCES PROFESSOR): Fasting blood sugar significantly improved Risperidone changed Continue current meds Continue to monitor Assessment & Plan (06/18/2021 11:22 AM MATHEMATICAL SCIENCES PROFESSOR): Increase lantus to 60 units nightly, if blood sugar still above goal after 1 week split into 33 units twice a day Follow up with blood sugar via portal in 2 weeks Continue jardiance 25mg Continue trulicity 4.5mg weekly Assessment & Plan (05/28/2021 4:58 PM MATHEMATICAL SCIENCES PROFESSOR): Increase lantus to 55 units nightly [...] weekly Assessment & Plan (08/28/2020 1:00 PM MATHEMATICAL SCIENCES PROFESSOR): DM Care Plan: Meds: Lantus - [...] recheck Assessment & Plan (07/24/2020 2:05 PM MATHEMATICAL SCIENCES PROFESSOR): Formulary change 2/2 insurance, switched to trulicity. Will increase to 1.5mg Assessment & Plan (05/28/2020 1:50 PM MATHEMATICAL SCIENCES PROFESSOR): Check a1c Barbara isn't checking blood sugar regularly, but when she is she has several >200 so I lean towards increasing if a1c>7 Assessment & Plan (04/30/2020 12:31 PM MATHEMATICAL SCIENCES PROFESSOR): Blood sugar improved on 40 units [...] Follow up 1 week for reassessment Wheezing Resolved Problems Problem Noted Date Diagnosed Date Resolved Date Hypertensive urgency 11/01/2024 025 Unresponsive episode 04/21/2024 025 Metabolic encephalopathy 04/19/202403/2025 Upper GI bleeding 01/30/2024 02/27/2025 Coffee ground emesis 01/29/2024 025 Leukocytosis 12/19/2023 02/27/2025 Leg swelling 10/07/2023 02/27/2025 GI bleed 12/20/2022 11/10/2023 Assessment & Plan [...] was in the room. Recently treated at [facility] for PNA with prolonged course of [...] was in the room. Recently treated at [facility] for PNA with prolonged course of [...] was in the room. Recently treated at [facility] for PNA with prolonged course of [...] was in the room. Recently treated at [facility] for PNA with prolonged course of [...] was in the room. Recently treated at [facility] for PNA with prolonged course of [...] was in the room. Recently treated at [facility] for PNA with prolonged course of [...] was in the room. Recently treated at [facility] for PNA with prolonged course of [...] was in the room. Recently treated at [facility] for PNA with prolonged course of [...] was in the room. Recently treated at [facility] for PNA with prolonged course of [...] was in the room. Recently treated at [facility] for PNA with prolonged course of [...] 11/10/2023 Assessment & Plan (08/14/2022 10:44 AM MATHEMATICAL SCIENCES PROFESSOR): Continue eliquis Assessment & Plan (06/09/2022 3:36 PM MATHEMATICAL SCIENCES PROFESSOR): Continue eliquis Assessment & Plan (04/02/2022 [...] CDT): Recently diagnosed at [facility]SH. Continue eliquis Retention of urine, unspecified 08/22/2021 02/27/2025 Delirium 08/07/2021 10/10/2022 Assessment & Plan (08/07/2021 3:30 PM MATHEMATICAL SCIENCES PROFESSOR): Subacute, persistent, hospitalized recently. She is [...] Impression: Patient recently had MRI performed at [facility] which revealed acute osteomyelitis to the [...] 08/28/2020 Assessment & Plan (05/28/2020 1:52 PM MATHEMATICAL SCIENCES PROFESSOR): Encouraged to follow up with wound clinic for reassessment Assessment & Plan (04/30/2020 12:31 PM MATHEMATICAL SCIENCES PROFESSOR): Following with wound clinic Assessment & [...] acute osteomyelitis on recent MRI performed at [facility]. She is being treated with [...] nightly Assessment & Plan (08/14/2022 10:42 AM MATHEMATICAL SCIENCES PROFESSOR): Continue lyrica 150mg nightly Assessment & Plan (06/09/2022 3:32 PM MATHEMATICAL SCIENCES PROFESSOR): Continue lyrica 150mg nightly Assessment & [...] status. Assessment & Plan (05/28/2021 4:58 PM MATHEMATICAL SCIENCES PROFESSOR): Continue lyrica 150mg nightly Assessment & [...] gabapentin Assessment & Plan (08/28/2020 1:00 PM MATHEMATICAL SCIENCES PROFESSOR): On gabapentin Assessment & Plan (07/24/2020 2:05 PM MATHEMATICAL SCIENCES PROFESSOR): Continue gabapentin Assessment & Plan (04/02/2020 [...] Encounters Date Type Department Care Team Description 03/13/2025 Letter (Out) [facility] Primary Care [address] [place] [address] [address] [place] [phone] 03/10/2025 Telephone [facility] at [address] [place] [phone] Cherelle Corcoran MD Referral Request 03/08/2025 2:15 PM CDT Therapy [facility] Hand & Shoulder [address] [place] [address] [address] [place] [address] Roger Martinez, FUEL HANDLER Complete tear of left rotator cuff, unspecified whether traumatic (Primary Dx) 03/01/2025 Documentation [facility] OP Physical Therapy [address] [place] [address] [address] [place] [address] Roger Martinez, FUEL HANDLER No Show 02/27/2025 12:30 PM CDT Lab [facility] Office Building [address] [place] [id number] Type 2 diabetes mellitus with diabetic neuropathy, with long-term current use of insulin ([facility]); Hypertension associated with diabetes (HCC); Hyperlipidemia associated with type 2 diabetes mellitus (HCC); Chronic diastolic congestive heart failure (HCC); ESRD (end stage renal disease) on dialysis ([facility]); Vitamin D deficiency 02/27/2025 12:12 PM CDT - 02/27/2025 11:59 PM CDT Hospital Encounter [facility] MOB [address] DIAG IMG [address] [place] [address] SOB (shortness of breath) Discharge Disposition: Discharge to home or self care 02/27/2025 11:15 AM CDT Office Visit [facility] at [address] [phone] Cherelle Corcoran MD Chronic left shoulder pain (Primary Dx); SOB (shortness of breath); Mass of breast, unspecified laterality; Type 2 diabetes mellitus with diabetic neuropathy, with long-term current use of insulin ([facility]); Moderate nonproliferative diabetic retinopathy of both eyes without macular edema associated with type 2 diabetes mellitus (HCC); Hypertension associated with diabetes ([facility]); Hyperlipidemia associated with type 2 diabetes mellitus ([facility]); Chronic diastolic congestive heart failure ([facility]); ESRD (end stage renal disease) on dialysis ([facility]); Late onset Alzheimer's dementia without behavioral disturbance; Parkinsonism, unspecified Parkinsonism type ([facility]); Schizoaffective disorder, bipolar type ([facility]); Gastroesophageal reflux disease without esophagitis; Vitamin D deficiency; Frailty; Need for immunization against influenza 02/27/2025 Results Follow-Up [facility] at [address] [phone] Cherelle Corcoran MD XR Chest PA Lateral 2 Views 02/27/2025 Telephone [facility] at [address] [phone] Cherelle Corcoran MD Medical Question/Miscellaneous 02/23/2025 Plan of Care Documentation [facility] Hand & Shoulder [address] [address] 02/22/2025 10:45 AM CDT Therapy [facility] Hand [facility] Shoulder [address] [address] Cesar Angeles, PT Complete tear of left rotator cuff, unspecified whether traumatic (Primary Dx) 01/26/2025 2:30 PM CDT Telemedicine [facility] [address] [place] [phone] Adryan Swenson MD Schizoaffective disorder, bipolar type (HCC) (Primary Dx); Involuntary movements 12/26/2024 8:40 AM CDT Office Visit [facility] [address] [facility] Medical Office Building [address], [address] [place] [address] Smith Gibbs MD Type 2 diabetes mellitus with chronic kidney disease on chronic dialysis, with long-term current use of insulin (HCC) (Primary Dx); Primary hypertension; Mixed hyperlipidemia; Diabetic polyneuropathy associated with type 2 diabetes mellitus (HCC); Type 2 diabetes mellitus with diabetic neuropathy, with long-term current use of insulin (HCC) 12/26/2024 Nurse Triage [facility] Primary Care at [address] [place] [address] Cherelle Corcoran MD from Last 3 Months Immunizations Immunization Administration Dates Next Due Heplisav-b (Hepatitis B) 03/10/2024,12/20,12/10/2023,11/04 Influenza Nasal, Unspecified 04/17/2017 Influenza, Quadrivalent, Hig h Dose, Preservative Free, Intrr 08/07/2022,04/01/2022,03/07/2021,04/02 Influenza, Trivalent, Adjuva nted, Intramuscular 04/05/2024,04/06/2019 Influenza, Trivalent, High D ose, Split, Preservative Free, Intramuscular 02/27/2025 Influenza, Trivalent, IM (MDV) 04/17/2017 PPD TEST 10/22/2023 Overdog SARS-CoV-2 Monovalent Vaccination (12+ Yrs) PURPLE 06/11/2021,10/13/2020,09/22/2020 [...] History Medical History Date Comments Depression Schizophrenia Diabetic neuropathy (HCC) Arthritis Hypertension Type 2 diabetes mellitus Hyperlipidemia Dementia (HCC) CHF (congestive heart failure) (HCC) Osteomyelitis Movement disorder GERD (gastroesophageal reflux disease) Anemia HL (hearing loss) Rotator cuff tear, left CKD (chronic kidney disease) stage V requiring chronic dialysis (HCC) End stage chronic kidney disease (HCC) hemodialysis rotates, every other day Urinary tract infection DVT (deep venous thrombosis) Pulmonary hypertension (HCC) mod erate Family History Medical History Relation Name Comments Diabetes Brother 4 Ruddy Chakraborty Learning disabilities Brother 5 Adryan Chakraborty Alcohol abuse Father Damien Chakraborty Stomach cancer Father Damien Chakraborty Diabetes Mother Lizbeth Chakraborty Heart disease Mother Lizbeth Chakraborty Kidney disease Mother Lizbeth Chakraborty Diabetes Sister 2 Valentine Smith Diabetes Sister 3 Moreniat Breanna Relation Name Status Comments Brother 1 Ismael Alive Brother 2 Maria E Spivey Alive Brother 3 Brother 4 Ruddy Chakraborty Brother 5 Adryan Chakraborty Alive Daughter Honey Alive Father Damien Chakraborty Mother Lizbeth Chakraborty Alive Other Magi Alive Sister 1 Valentine Spievy Alive Sister 2 Valentine Luis Sister 3 [...] or pharmacy Often 01/20/2024 [facility] Utilities Answer Date Recorded In the past 12 months has th e [employer], gas, oil, or water company threatened to [...] 11/07/2024 How often do you attend chur or gnosticist services? Patient unable to answer 11/07/2024 Do [...] No 11/07/2024 Housing Stability Vital Sign Answer Fuetnes e [...] any time in the past 12 [facility], were you homeless or living [...] on file Legal Sex Female 9:03 AM MATHEMATICAL SCIENCES PROFESSOR Gender Identity Female 02/08/2020 6:39 PM [...] Mass Index 26.14 02/27/2025 11:12 AM CDT Plan of Treatment Scheduled Procedures Name Priority Associated Diagnoses Date/Ti me COLONOSCOPY Iron deficiency anemia due to chronic blood loss Health Maintenance Due Date Last Done Comments DTaP/Tdap/Td Vaccine (1 - Tdap) 1961 Zoster Vaccine (1 of 2) 2000 Foot Exam 04/02/2021 04/02/2020 Albumin Creatinine Ratio, Urine 10/11/2023 10/10/2022, 09/14/2021, 08/05/2021 Breast Cancer Screening-Mammogram 01/21/2025 01/22/2024, 01/22/2024, 09/25/2022, Additional history exists Covid-19 Vaccine (4 - 2024-2 6 season) 2025 06/11/2021, 10/13/2020, 09/22/2020 Hemoglobin A1C 05/04/2025 11/01/2024, 03/0 08/2024, 05/16/2024, Additional history exists Well Visit 65+ 10/24/2025 10/24/2024, 10/21, 06/09/2022, Additional history exists Lipid Panel 11/01/2025 11/01/2024, 04/23, 10/30/2023, Additional history exists Fall Risk Assessment 11/05/2025 11/05/2024, 10/24/2024, 11/10/2023, Additional history exists eGFR 11/25/2025 11/25/2024, 06/0 07/2024, 11/14/2024, Additional history exists Dilated Eye Exam 01/20/2026 01/20/2025, 10/2024, 07/22/2024, Additional history exists Osteoporosis Screening-Bone Density Scan 01/21/2026 01/22/2024, 01/22/2024, 01/08/2021 Depression Screening 02/27/2026 02/27/2025, 11/01/2024, 11/01/2024, Additional history exists Colon Cancer Screening-Colonoscopy 03/01/2027 03/01/2024, 04/01/2017 Hepatitis C Screening Completed 10/15/2023, 020 Colon Cancer Screening-CT Colonography Discontinued 03/01/2024, 04/01/2017 Colon Cancer Screening-DNA Stool Discontinued 03/01/20 24, 04/01/2017 Colon Cancer Screening-FIT Discontinued 03/01/2024, Colon Cancer Screening-Sigmoidoscopy Discontinued 03/01/2024, 04/01/2017 Pneumococcal vaccine 65+ Completed 024, 01/20/2019, 03/31/2017 Hepatitis B Screening Completed 11/15/2024 , 03/10/2024, 01/07/2024, Additional history exists Influenza Vaccine Completed 02/27/2025, , 08/07/2022, Additional history exists Medical Devices Implanted Type Area Shop Supervisor Device Identifier Shelf Expiration Date Model / Serial / Lot [facility] [employer] Duramax Vascpak Safesheath D-Pro 15.5fr 24cm Kit Catheter [id number] - [id number] Implanted:Qty: 1 on 10/15/2023 at [facility] [employer] 10/19/2025 [id number] 85 / / [id number] [facility] [employer] Duraflow Embosafe 15.5fr 24cm Basic 2 Lumen Kit Catheter [id number] - [id number] Implanted:Qty: 1 on 07/15/2024 by Edgardo Kauffman MD at [facility] 08/19/2026 [id number] 15 / / [id number] Procedures Procedure Name Priority Date/Time Associated Diagnosis Comments XR CHEST PA LATERAL 2 VIEWS Schedule RA, Read RA (Appt Today, Awaiting Results) 02/27/2025 1:14 PM CDT SOB (shortness of breath) HM DIABETES EYE EXAM Routine 01/20/2025 11:51 AM [...] Recently Relevant to Health Maintenance Results * XR Chest PA Lateral 2 [...] Rafaela Paulino M.D. TW: FAIZAN Report ID: [id number] Reading Location: [id number] Procedure Note Rafaela Paulino MD - 02/27/2025 [...] Rafaela Paulino M.D. TW: TW Report ID: [id number] Reading Location: [place] [address] Cherelle Corcoran MD IMG XR PROCEDURES Final Result * (ABNORMAL) DIABETES EYE EXAM (01/20/2025 11:51 AM CDT) Pathologist [facility] SCRIBED DIABETIC DILATED EYE EXAM Abnormal Historical Provider HEALTH MAINTENANCE Final Result * POCT glucose (12/26/2024 9:39 AM CDT) Pathologist [facility] Glucose Blood, POC 242 Normal Fasting 70 - 100, Random <200 mg/dL Blood 12/26/2024 9:39 AM CDT Smith Gibbs MD POINT OF CARE TEST ORDERABLE S Final Result * (ABNORMAL) eGFR (11/25/2024 12:58 PM CDT) Pathologist [facility] eGFR 7(L) >=60 mL/min/1. 73 m2 NILSA [...] last reviewed 2021. Testing performed by: [facility], [address] [place] [address]., [address] Blood 11/25/2024 12:5 8 PM CDT 11/25/2024 2:12 PM CDT us Notinfile Unknown LAB BLOOD ORDERABLES Final Res ult Performing Organization Address City/[facility]/ZIP Co de Phone Number NILSA [address] [facility] [email or web address] [address] * (ABNORMAL) Hemoglobin A1c (11/01/2024 10:05 PM CDT) Hgb A1C 7.1(H) 4.0 - 5.6 % Estimated Average Glucose 157 mg/dL NILSA Comment: The ADA recommends reporting an estimated Average Glucose (eAG) with all Hemoglobin A1c results using the equation derived from a study of 507 normal and diabetic adults. Minority populations were underrepresented and children were not included. (Diabetes Care 31:8607-7237, 2008). The eAG is not equivalent to a fasting glucose. Blood 11/01/2024 10:0 5 PM CDT 11/01/2024 10:15 PM CDT us Brad Sebastien Smallwood SALES PROPERTY MANAGER LAB BLOOD ORDERABLES Fin al Result Performing Organization Address City/[facility]/ZIP Co de Phone Number [facility] [address] [facility] Department of Laboratories [place] [phone] * (ABNORMAL) Lipid panel (11/01/2024 10:05 PM [...] 3. Sanket M et al. SAVITA Cardiol. 2020 October 20;5(5):540-548. [...] BLOOD ORDERABLES Fin al Result NILSA RODRIGES [address] [facility] Department of Laboratories [place], [place] [id number] * Colonoscopy (03/01/2024 8:49 AM CDT) Anatomical Region Laterality Modality Other Narrative Procedure Note Jaya Grier MD - 03/01/2024 8:49 AM CDT [facility] GI ENDOSCOPY Patient Name: Barbara [...] The scope was passed under direct vision.The [id number] colonoscope was introduced through theanus and advanced [...] On: 03/01/2024 8:49 AM Recognized by the [place] Society [employer] Gastrointestinal [employer]oscopy for promoting quality [...] taking vitamin-D. History of end-stage renal disease. Shop Supervisor/Model: [email or web address] A (S/N [id number]) CLINICAL INFORMATION: Current height: 61 inches Maximum [...] 1:02 PM - Electronically signed by Rafaela Paulnio M.D. TW: TW Report ID: [id number] Reading Location: [place] [address] Procedure Note Rafaela Paulino MD - 01/22/2024 EXAM DESCRIPTION: DEXA AXIAL SKELETON BONE DENSITY 1 OR MORE SITES REASON FOR STUDY: 73 y/o year old F with given history of: Post menopausal status. History of taking vitamin-D. History of end-stagerenal disease. Shop Supervisor/Model: [employer] A (S/N [id number]) CLINICAL INFORMATION: Current height: 61 inches Maximum [...] Rafaela Paulino M.D. TW: TW Report ID: [id number] Reading Location: [id number] Cherelle Corcoran MD IMDiaz DXA PROCEDURE S [...] age 40, based on guidelines of the [place] [employer] (ACR Practice Parameter for the Performance of Screening and Diagnostic Mammography) and [place] [employer] Obstetricians and Gynecologists. For women [...] CDT Jimbo Strauss MD LAB MICROBIOLOGY - [facility] Final Result NILSA [address] Department [place] [address] * (ABNORMAL) Albumin Creatinine Ratio, Urine (10/10/2022 11:39 AM CDT) Albumin Ur 3,240.2 mg/L NILSA Comment: Interpretive Data No reference range established. Current interpretive data was last revised 2018. Testing performed by: [address] [address] Creatinine Ur 74.8 mg/dL NILSA Comment: Interpretive Data No reference range established. Current interpretive data was last revised 2018. Testing performed by: [address] [address] Albumin Creatinine Ratio, Ur 4,332(H) 1 - 29 mg/g NILSA Comment:Testing performed by : [address] [address] Urine 10/10/2022 11:3 9 AM CDT 10/10/2022 1:45 PM CDT Markie Ryan MD LAB URINE ORDERABLES Final Re sult [facility] [address] [facility] [place] [address] from Last 3 Months or Most Recently Relevant to Health Maintenance Insurance MEDICARE MEDICARE [facility] MEDICARE [employer] MEDICARE [facility] Advance Directives For more information, please contact: [phone] Documents on File Type Date Recorded Patient Residential Counselor Expl anation ADVANCE DIRECTIVE 07/15/2024 7:58 AM Power of House Designer-Medical ADVANCE DIRECTIVE 02/02/2024 12:34 PM Erik r of House Designer-Medical * Full Code (Latest Code Status on [...] Gayle Daughter Health Care Agent Care Teams Mathematics Professor Relationship Specialty Start Date End Date Cherelle Corcoran MD PCP - General Family Medicine 08/30/19 Mark Queen MD Consulting Physician Infectious Diseases 01/10/20 Rudolph Welch MD [address] [facility] [address] [place] [address] Consulting Physician Infectious Diseases 12/05/22 Markie Ryan MD [address] [facility] [address] [place] [address] Consulting Physician Nephrology 12/05/22 [place] [address] [facility] [address], [place] [address] Consulting Physician Nephrology 10/22/23 Jaya Grier MD [address] [facility] [address] [place] [address] Consulting Physician Gastroenterology 02/01/24 Edgardo Kauffman MD [address] [facility] [address] [place] [address] Surgeon Vascular Surgery 07/15/24 Nicolas Edwards, RN [address] [place] [address] [address] [place] [address] Account Services Specialist 03/24/25
--- OUTSIDE RECORDS SUMMARY | 2025-03-27 16:28 | XMS_ITS ---
Author Organization [facility] itjazzmine (HIE interaction) Address [address] [place] [id number] Care Team Providers Care Teradata Solution Architect Name Role Phone Unavailable Unavailable Unavailable Allergies, Adverse Reactions, Alerts This patient has no known allergies or adverse reactions. Problems This patient has no known problems.
--- NOTE | 2025-03-27 17:02 | ECG_ITS ---
Test Date: 2025-03-27 17:08:21 Measurements Intervals [place] Rate: 65 P: 65 LA: 155 QRS: 7 QRSD: 69 T: 84 QT: 385 QTc: 403 Interpretive Statements SINUS RHYTHM DELAYED PRECORDIAL R/S TRANSITION LOW QRS VOLTAGE IN PRECORDIAL LEADS NONSPECIFIC ST & T-WAVE ABNORMALITY- HIGH LATERAL LEADS BASELINE ARTIFACT- I, II, III, AVR, AVL, AVF BORDERLINE ECG Compared to ECG 12/26/2024 12:08:20 No significant changes Electronically Signed On 03-27-2025 19:20:18 CDT by Melquiades Marte D.O.
--- NOTE | 2025-03-27 17:02 | ED_ITS ---
HPI - Dizziness General Chief Complaint: Dizziness <Markie Azul APRN - Last Filed: 03/27/25 17:05> Stated Complaint: dizzy, lightheaded <Markie Azul APRN - Last Filed: 03/27/25 17:05> Time Seen by Provider: 03/27/25 20:08 <Markie Azul APRN - Last Filed: 03/27/25 17:05> Focused 74-year-old female history hypertension, end-stage renal disease on dialysis every other day presents to the ER for evaluation of increased fatigue and weakness. Patient denies shortness of breath, difficulty breathing or chest pain. GENERAL: ill-appearing, well-nourished, and in no acute distress. HEAD: Normocephalic, atraumatic. CHEST: Clear to auscultation. No respiratory distress. HEART: Regular rate and rhythm. NEURO: Alert and oriented x3. Patient screened in triage and initial orders placed. Additional care and disposition to be based upon diagnostic testing and treatment. <Markie Azul APRN - Last Filed: 03/27/25 17:05> Source: patient <Aldo Hare MD - Last Filed: 03/27/25 21:41> Mode of arrival: wheelchair <Aldo Hare MD - Last Filed: 03/27/25 21:41> Limitations: no limitations <Aldo Hare MD - Last Filed: 03/27/25 21:41> History of Present Illness HPI Narrative: 34-year-old with a history of hypertension ESRD on hemodialysis here with a complains of weakness, headache, dizziness since this morning she denies any chest pain or shortness of breath. No history of nausea or vomiting reported she is scheduled for dialysis tomorrow. <Aldo Hare MD - Last Filed: 03/27/25 21:41> MD elicited complaint: dizziness <lAdo Hare MD - Last Filed: 03/27/25 21:41> Onset (ago): day(s) (1) <Aldo Hare MD - Last Filed: 03/27/25 21:41> Severity: mild <Aldo Hare MD - Last Filed: 03/27/25 21:41> Related Data Home Medications: Home Medications ?Medication ?Instructions ?Recorded ?Confirmed ?Last Taken ?Type acetaminophen 325 mg tablet 650 mg PO Q6H PRN Pain 11/09/24 Unknown History insulin glargine 100 unit/mL (3 11 unit subcut HS 08/2211/09/24 11/08/24 23:30 History mL) subcutaneous pen (Lantus 11 units Solostar U-100 Insulin) insulin lispro 100 unit/mL 1 - 4 sliding scale dose moran bcut 09/19/21 11/09/24 11/08/24 18:30 History subcutaneous pen USEASDIRECTD 4+2 lidocaine 5 % topical patch 2 patch topical DAILY PRN Back Pain 09/19/21 11/09/24 11/07/24 07:00 History 2 patch multivitamin 1 tablet PO DAILY 09/19/21 0 11/09/24 11/09/24 07:00 History 1 tablet aspirin 81 mg chewable tablet 81 mg PO DAILY 06/28/24 11/09/24 11/09/24 07:00 History 81 mg benztropine 2 mg tablet 2 mg PO HS 06/28/24 11/09/24 11/08/24 23:30 History 2 mg hydralazine 25 mg tablet 25 mg PO TID 06/28/2411/09/24 07:00 History 25 mg pantoprazole 40 mg tablet,delayed 40 mg PO DAILY 06/2811/09/24 11/09/24 07:00 History release 40 mg atorvastatin 20 mg tablet 20 mg PO QPM 11/09/2411/08/24 23:30 History 20 mg carvedilol 6.25 mg tablet 6.25 mg PO Q12H 11/09/2411/09/24 07:00 History 6.25 mg meclizine 25 mg tablet 25 mg PO DAILY 11/09/2410/2111/09/24 07:00 History 25 mg <Markie Azul, BRUNA - Last Filed: 03/27/25 17:05> Allergies/Adverse Reactions: Allergies Allergy/AdvReac Type Severity Reaction Status Date / Time No Known Allergies Allergy Verified 11/09/24 18:43 <Markie Azul BRUNA - Last Filed: 03/27/25 17:05> Review of Systems 2 Review of Systems: All systems reviewed & are unremarkable except as noted in HPI and below <Aldo Hare MD - Last Filed: 03/27/25 21:41> Constitutional: Constitutional: Reports no additional constitutional complaints <Aldo Hare MD - Last Filed: 03/27/25 21:41> Eyes: Eyes: Reports no additional eye complaints <Aldo Hare MD - Last Filed: 03/27/25 21:41> ENT: Reports system reviewed and no additional complaints, except as documented <Aldo Hare MD - Last Filed: 03/27/25 21:41> Cardiovascular: Cardiovascular: Reports no additional cardiovascular complaints <Aldo Hare MD - Last Filed: 03/27/25 21:41> Gastrointestinal: Gastrointestinal: Reports no additional gastrointestinal complaints <Aldo Hare MD - Last Filed: 03/27/25 21:41> Genitourinary: Genitourinary: Reports no additional female genitourinary complaints <Aldo Hare MD - Last Filed: 03/27/25 21:41> Musculoskeletal: Musculoskeletal: Reports no additional musculoskeletal complaints <Aldo Hare MD - Last Filed: 03/27/25 21:41> Neurologic: Reports system reviewed and no additional complaints, except as documented <Aldo Hare MD - Last Filed: 03/27/25 21:41> PMFSH Past Medical History Medical History: Medical History Drug-induced Parkinson's disease Heart failure with preserved ejection fraction Insulin dependent diabetes mellitus Chronic kidney disease, stage 4 (severe) Creatinine ranges from 1.9 to 2.20. Venous thrombosis Anemia Hyperkalemia Dementia COVID (06/2021) Schizophrenia Diabetic neuropathy <Markie Azul APRN - Last Filed: 03/27/25 17:05> Surgical History Surgical History: Surgical History History of cataract extraction with lens replacement History of section Right great toe amputee <Markie Azul APRN - Last Filed: 03/27/25 17:05> Family History Family History: Family History Mother Diabetes mellitus Acute myocardial infarction Father Heart attack Cancer Sibling Diabetes mellitus Acute myocardial infarction <Markie Azul APRN - Last Filed: 03/27/25 17:05> Social History Social History: Social History Social History: The patient lives with her daughter and grand son in [place]. Lifelong nonsmoker. No alcohol or illicit substance abuse. She designates her daughter, Candelaria Gayle, as her surrogate decision maker. Code status: Full code. Smoking status: Never smoker Alcohol intake: never Substance use: never Substance use type: does not use Do You Feel Safe in your Home?: Yes Lack of Transportation: No Lack of Food: Never True Current Housing: I Have Housing Concerned About Future Housing: No Difficulty Paying Gas/Electric Bills: No Difficulty Paying for Meds: No Currently Unemployed: No Education: Master's Degree or Higher Difficulty w/ Childcare or Family Care: No Living arrangements: with family Spiritual care concerns: Yes <Markie Azul, MALT HOUSE KILN OPERATOR - Last Filed: 03/27/25 17:05> Exam 2 Narrative: GENERAL: Well-appearing, well-nourished, and in no acute distress. HEAD: Normocephalic, atraumatic. EYES: PERRLA and EOMI. ENT: Nares clear, no rhinorrhea or epistaxis. Mucous membranes moist. NECK: Supple. CHEST: Clear to auscultation. No respiratory distress. HEART: Regular rate and rhythm. No murmur heard. Normal peripheral pulses. ABDOMEN: Soft, nontender, nondistended, normal active bowel sounds. EXTREMITIES: Normal range of motion. No edema. SKIN: Warm, dry, no rash. NEURO: No focal deficits. Alert and oriented x3. PSYCH: Normal mood and affect. <Aldo Hare MD - Last Filed: 03/27/25 21:41> Course Course Emergency Course: Discussed lab work with the patient. She feels comfortable going home. I discussed with Dr Jonel Malloy ,pt can be discharged home. <Aldo Hare MD - Last Filed: 03/27/25 21:41> Vital Signs Vital signs: Vital Signs Temperature 36.7 C 03/27/25 16:59 Pulse Rate 66 03/27/25 16:59 Respiratory Rate 18 03/27/25 16:59 Blood Pressure 152/69 H 03/27/25 16:59 Pulse Oximetry 100 03/27/25 16:59 Oxygen Delivery Room Air 03/27/25 16:59 Temperature 36.7 C 03/27/25 16:59 Pulse Rate 71 03/27/25 19:17 Respiratory Rate 16 03/27/25 19:17 Blood Pressure 183/66 H 03/27/25 19:17 Pulse Oximetry 96 03/27/25 19:17 Oxygen Delivery Room Air 03/27/25 18:49 <Markie Azul, MALT HOUSE KILN OPERATOR - Last Filed: 03/27/25 17:05> Vital Signs Temperature 36.7 C 03/27/25 16:59 Pulse Rate 66 03/27/25 16:59 Respiratory Rate 18 03/27/25 16:59 Blood Pressure 152/69 H 03/27/25 16:59 Pulse Oximetry 100 03/27/25 16:59 Oxygen Delivery Room Air 03/27/25 16:59 Temperature 36.7 C 03/27/25 16:59 Pulse Rate 71 03/27/25 19:17 Respiratory Rate 16 03/27/25 19:17 Blood Pressure 183/66 H 03/27/25 19:17 Pulse Oximetry 96 03/27/25 19:17 Oxygen Delivery Room Air 03/27/25 18:49 <Aldo Hare MD - Last Filed: 03/27/25 21:41> MDM - Dizziness Differential Diagnosis Differential diagnosis: Likely orthostatic hypotension and other (Electrolyte imbalance) <Aldo Hare MD - Last Filed: 03/27/25 21:41> Medical Records Attestation: I reviewed the patient's medical records. <Aldo Hare MD - Last Filed: 03/27/25 21:41> Lab Data Attestation: I reviewed the patient's lab results. <Aldo Hare MD - Last Filed: 03/27/25 21:41> Result diagrams: 03/27/25 18:02 03/27/25 18:02 <Markie Azul APRN - Last Filed: 03/27/25 17:05> Labs: Lab Results 03/27/25 03/27/25 Range/Units 17:03 18:02 WBC 8.7 (4.5-10.0) K/mm3 RBC 3.18 L (4.2-5.4) M/mm3 Hgb 9.7 L (12.0-15.0) g/dL Hct 31.4 L (37.0-47.0) % MCV 98.7 (80-100) fl MCH 30.5 (26-34) pg MCHC 30.9 L (32-36) g/dl RDW 14.0 (11.5-14.5) % Plt Count 294 (150-375) k/mm3 MPV 9.7 (7.4-10.4) fl Immature Gran % (Auto) 0.5 (0-0.5) % Neut % (Auto) 66.5 (45.5-73.1) % Lymph % (Auto) 25.1 (18.3-44.2) % Grimes % (Auto) 6.2 (2.6-8.5) % Eos % (Auto) 1.4 (0-4.4) % Baso % (Auto) 0.3 (0.2-1.2) % Lymph # (Auto) 2.18 (0.9-3.2) K/mm3 Grimes # (Auto) 0.5 (0.1-0.6) K/mm3 Eos # (Auto) 0.1 (0-0.3) K/mm3 Baso # (Auto) 0.0 (0.0-0.1) K/mm3 Abs Immat Gran (auto) 0.04 H (0.00-0.031) K/mm3 Absolute Neuts (auto) 5.8 (1.3-6.7) K/mm3 Absolute Nucleated RBC 0.000 (0.0-0.012) K/mm3 Nucleated RBC % 0.0 (0.0-0.2) % Sodium 141 (137-145) mmol/L Potassium 5.4 H (3.4-5.0) mmol/L Chloride 102 (98-107) mmol/L Carbon Dioxide 26 (22-30) mmol/L Anion Gap 13 H (4-12) mmol/L BUN 76 H D (7-17) mg/dL Creatinine 7.10 H (0.7-1.0) mg/dL Estim Creat Clear Calc 5 ml/min Estimated GFR 6 L (59 - ) Glucose 252 H (65-110) mg/dL POC Capillary Glucose 257 H (65-105) mg/dl Calcium 10.0 (8.4-10.2) mg/dL Magnesium 1.7 (1.6-2.3) mg/dL Total Bilirubin 0.3 (0.2-1.3) mg/dL AST 140 H (14-36) U/L ALT 140 H (6-35) U/L Alkaline Phosphatase 180 H (38-126) U/L Troponin I < 0.012 (0.000-0.034) ng/mL Total Protein 8.2 (6.3-8.2) g/dL Albumin 4.1 (3.5-5.1) g/dL <Markie Azul, MALT HOUSE KILN OPERATOR - Last Filed: 03/27/25 17:05> Lab Results 03/27/25 03/27/25 Range/Units 17:03 18:02 WBC 8.7 (4.5-10.0) K/mm3 RBC 3.18 L (4.2-5.4) M/mm3 Hgb 9.7 L (12.0-15.0) g/dL Hct 31.4 L (37.0-47.0) % MCV 98.7 (80-100) fl MCH 30.5 (26-34) pg MCHC 30.9 L (32-36) g/dl RDW 14.0 (11.5-14.5) % Plt Count 294 (150-375) k/mm3 MPV 9.7 (7.4-10.4) fl Immature Gran % (Auto) 0.5 (0-0.5) % Neut % (Auto) 66.5 (45.5-73.1) % Lymph % (Auto) 25.1 (18.3-44.2) % Grimes % (Auto) 6.2 (2.6-8.5) % Eos % (Auto) 1.4 (0-4.4) % Baso % (Auto) 0.3 (0.2-1.2) % Lymph # (Auto) 2.18 (0.9-3.2) K/mm3 Grimes # (Auto) 0.5 (0.1-0.6) K/mm3 Eos # (Auto) 0.1 (0-0.3) K/mm3 Baso # (Auto) 0.0 (0.0-0.1) K/mm3 Abs Immat Gran (auto) 0.04 H (0.00-0.031) K/mm3 Absolute Neuts (auto) 5.8 (1.3-6.7) K/mm3 Absolute Nucleated RBC 0.000 (0.0-0.012) K/mm3 Nucleated RBC % 0.0 (0.0-0.2) % Sodium 141 (137-145) mmol/L Potassium 5.4 H (3.4-5.0) mmol/L Chloride 102 (98-107) mmol/L Carbon Dioxide 26 (22-30) mmol/L Anion Gap 13 H (4-12) mmol/L BUN 76 H D (7-17) mg/dL Creatinine 7.10 H (0.7-1.0) mg/dL Estim Creat Clear Calc 5 ml/min Estimated GFR 6 L (59 - ) Glucose 252 H (65-110) mg/dL POC Capillary Glucose 257 H (65-105) mg/dl Calcium 10.0 (8.4-10.2) mg/dL Magnesium 1.7 (1.6-2.3) mg/dL Total Bilirubin 0.3 (0.2-1.3) mg/dL AST 140 H (14-36) U/L ALT 140 H (6-35) U/L Alkaline Phosphatase 180 H (38-126) U/L Troponin I < 0.012 (0.000-0.034) ng/mL Total Protein 8.2 (6.3-8.2) g/dL Albumin 4.1 (3.5-5.1) g/dL <Aldo Hare MD - Last Filed: 03/27/25 21:41> Imaging Data Radiologist's impression: ITS Impressions Chest X-Ray 03/27/25 17:47 Impression: No acute cardiopulmonary abnormality. <Aldo Hare MD - Last Filed: 03/27/25 21:41> ECG Data EKG #1: ECG completion date: 03/27/25 <Aldo Hare MD - Last Filed: 03/27/25 21:41> ECG completion time: 17:08 <Aldo Hare MD - Last Filed: 03/27/25 21:41> EKG Interpretation: normal rate (65), sinus rhythm, no ectopy, non-specific ST changes and normal QRS <Aldo Hare MD - Last Filed: 03/27/25 21:41> Discharge Plan Discharge Clinical Impression: Weakness generalized, End-stage renal disease (ESRD) <Markie Azul, MALT HOUSE KILN OPERATOR - Last Filed: 03/27/25 17:05> Patient Disposition: Home <Markie Azul APRN - Last Filed: 03/27/25 17:05> Condition: Stable <Markie Azul MALT HOUSE KILN OPERATOR - Last Filed: 03/27/25 17:05> Instructions: Dizziness (ED) <Markie Azul APRN - Last Filed: 03/27/25 17:05> Additional Instructions: continue home medications, follow with your doctor <Markie Azul MALT HOUSE KILN OPERATOR - Last Filed: 03/27/25 17:05> Patient Language: East Timorese <Markie Azul MALT HOUSE KILN OPERATOR - Last Filed: 03/27/25 17:05> Prescriptions: No Action acetaminophen 325 mg Tablet 650 mg PO Q6H PRN (Reason: Pain) insulin glargine [Lantus Solostar U-100 Insulin] 100 unit/mL (3 mL) insulin pen 11 unit SUBCUT HS Rx Instructions: HOLD IF BLOOD GLUCOSE < 130 multivitamin Tablet 1 tablet PO DAILY lidocaine 5 % Adhesive Patch,Medicated 2 patch TOPICAL DAILY PRN (Reason: Back Pain) Rx Instructions: to bilateral lower back insulin lispro 100 unit/mL Insulin Pen 1 - 4 sliding scale dose SUBCUT USEASDIRECTD Patient Comments: 4 SCHEDULED WITH MEALS, IF BLOOD GLUCOSE > 100 Rx Instructions: 150 or less: no insulin 151-200: 1 unit 201-250: 2 units 251-300: 3 units greater than 300: 4 units pantoprazole 40 mg tablet,delayed release (DR/EC) 40 mg PO DAILY aspirin 81 mg tablet,chewable 81 mg PO DAILY hydralazine 25 mg tablet 25 mg PO TID Rx Instructions: HOLD DOSE PRIOR TO DIALYSIS TREATMENT benztropine 2 mg tablet 2 mg PO HS tramadol-acetaminophen 37.5-325 mg tablet 1 tablet PO Q6H PRN (Reason: pain) Qty: 14 0RF atorvastatin 20 mg tablet 20 mg PO QPM carvedilol 6.25 mg tablet 6.25 mg PO Q12H meclizine 25 mg tablet 25 mg PO DAILY Rx Instructions: START ON 11/07/24, END ON 11/11/24 gabapentin 100 mg Capsule 100 mg PO DAILY Qty: 30 0RF gabapentin 100 mg capsule 100 mg PO .COMPLEX Qty: 30 0RF Rx Instructions: 100 mg orally; ONLY DURING DIALYSIS ON DIALYSIS DAYS post dialysis treatment <Markie Azul APRN - Last Filed: 03/27/25 17:05> Follow-up/Referrals: Nilo,Cherelle Butterfield MD [Primary Care Provider, Unknown] <Markie Azul APRN - Last Filed: 03/27/25 17:05> Time of Disposition: 20:34 <Markie Azul APRN - Last Filed: 03/27/25 17:05> 20:34 <Aldo Hare MD - Last Filed: 03/27/25 21:41>
[2025-03-27 18:10] LABS: Hematocrit 31.4 % (37.0-47.0); Hemoglobin 9.7 g/dL (12.0-15.0); Immature Granulocyte Percent A 0.5 % (0-0.5); Lymphocytes Absolute Auto 2.18 K/mm3 (0.9-3.2); Mean Corpuscular HGB Conc 30.9 g/dl (32-36); Mean Corpuscular Hemoglobin 30.5 pg (26-34); Mean Corpuscular Volume 98.7 fl (80-100); Nucleated Red Blood Cells Absolute Auto 0.000 K/mm3 (0.0-0.012); Nucleated Red Blood Cells Perc 0.0 % (0.0-0.2); Platelet Count Result 294 k/mm3 (150-375); Red Blood Count 3.18 M/mm3 (4.2-5.4); White Blood Count 8.7 K/mm3 (4.5-10.0)
[2025-03-27 18:28] LABS: Alanine Aminotransferase 140 U/L (6-35); Albumin Level 4.1 g/dL (3.5-5.1); Alkaline Phosphatase 180 U/L (38-126); Anion Gap 13 mmol/L (4-12); Aspartate Amino Transferase 140 U/L (14-36); Bilirubin,Total 0.3 mg/dL (0.2-1.3); Blood Urea Nitrogen 76 mg/dL (7-17); Calcium 10.0 mg/dL (8.4-10.2); Carbon Dioxide 26 mmol/L (22-30); Chloride 102 mmol/L (98-107); Estimated CRCL calculation 5 ml/min; Estimated Glomerular Filt Rate 6; Glucose 252 mg/dL (65-110); Magnesium 1.7 mg/dL (1.6-2.3); Potassium 5.4 mmol/L (3.4-5.0); Sodium 141 mmol/L (137-145); Total Protein 8.2 g/dL (6.3-8.2)
[2025-03-27 18:35] LABS: Troponin I < 0.012 ng/mL (0.000-0.034)
[2025-03-27 21:15] LABS: Add Urine Microscopic? YES; Appearance Urine Clear (Clear); Glucose Urine UA 2+ mg/dL (Negative); Leukocyte Esterase Ur 1+ LEU/UL (Negative); Nitrate Urine Negative (Negative); Non Pathogenic Casts 0-2; Specific Grav Ur 1.013 (1.001-1.035)
== END 2025-03-27 21:40 | disposition home or self-care (01) ==
PROVIDERS: Nurse Practitioner Family; Emergency Provider Family Medicine; PCP Hospitalist
DX: R53.1 Weakness (principal); I13.2 Hypertensive heart and chronic kidney disease with heart failure and with stage 5 chronic kidney disease, or end stage renal disease; E11.22 Type 2 diabetes mellitus with diabetic chronic kidney disease; N18.6 End stage renal disease; I50.9 Heart failure, unspecified; Z99.2 Dependence on renal dialysis; G20.A1 Parkinson's disease without dyskinesia, without mention of fluctuations; F03.90 Unspecified dementia, unspecified severity, without behavioral disturbance, psychotic disturbance, mood disturbance, and anxiety; E11.40 Type 2 diabetes mellitus with diabetic neuropathy, unspecified; D64.9 Anemia, unspecified; Z86.16 Personal history of COVID-19; Z96.1 Presence of intraocular lens; Z98.49 Cataract extraction status, unspecified eye; Z89.411 Acquired absence of right great toe; Z79.4 Long term (current) use of insulin; Z79.82 Long term (current) use of aspirin; Z79.899 Other long term (current) drug therapy; R94.31 Abnormal electrocardiogram [ECG] [EKG]
CPT/HCPCS: 36415; 71046; 80053; 81001; 82948; 83735; 84484; 85025; 87086; 93005; 99284

== ENCOUNTER 2025-04-26 19:12 | Emergency (ER) | payer MEDICARE, MEDICAID, SELFPAY ==
--- OUTSIDE RECORDS SUMMARY | 2004-11-08 07:45 | XMS_ITS | Continuity of Care Document ---
Author Organization [facility] Address [address] [place] [address] Phone Care Team Providers Care Pre School Teacher Name Role Phone Luis OD, Alvarado Unavailable Unavailable Advance Directives Directive Yes / No Effective Date File Name No Information Encounters Encounter Description Practice Location Reason(s) For Visit Diagnoses Date Provider Providers Copied on Encounter [facility], [address], [place], [place], [id number], [place] tel:[phone] SEC [facility] No Information May-2 0-200 5 Luis OD Alvarado. [address] [facility] , [address], [place], [address], [place]. tel:[phone] Family History Family Member Type Diagnosis Age At Onset No Information Payers Payer name Insurance type Covered libertarian ID Authoriza tion(s) Medicaid [facility] [id number] Social History Type Description Quantity Date Captured Comments Sex Female Smoking Status No Information Chief Complaint And Reason For Visit No Information Reason For Referral Reason For Referral No Information History Of Present Illness Encounter Date Complaint History Of Prese nt Illness No Information Functional Status Date Functional Assessmen t No Information Instructions Date Instruction Additional Infor mation No Information Assessments Type Assessment Date No Information Patient Care Teams Name Effective Dates (start - stop) Status Members No Information
--- OUTSIDE RECORDS SUMMARY | 2004-11-08 07:45 | XMS_ITS | Continuity of Care Document ---
Author Organization [facility] Address [address] [place] [address] Phone Care Team Providers Care Supervisor Tellers Name Role Phone Luis OD, Alvarado Unavailable Unavailable Advance Directives Directive Yes / No Effective Date File Name No Information Encounters Encounter Description Practice Location Reason(s) For Visit Diagnoses Date Provider Providers Copied on Encounter [facility], [address], [place], [place], [id number], [place] tel:[phone] [facility] No Information May-2 0-200 5 Luis OD Alvaraod. [address] [facility] , [address], [place], [address], [place]. tel:[phone] Family History Family Member Type Diagnosis Age At Onset No Information Payers Payer name Insurance type Covered democrat ID Authoriza tion(s) Medicaid [facility] [id number] Social History Type Description Quantity Date Captured [...]
--- NOTE | ~2025-04-26 | XR_ITS ---
EXAMINATION: XR knee LT 3V, XR knee RT 3V DATE: 04/27/2025 00:42 INDICATION: Bilateral knee pain TECHNIQUE: 1. Anteroposterior, oblique and crosstable lateral views of the right knee were obtained. 2. Anteroposterior, oblique and crosstable lateral views of the left knee were obtained. COMPARISON: None. FINDINGS: Alignment is normal at both knees. No fracture. Relatively symmetric pattern of tricompartmental osteoarthritis of both knees, mild in the medial lateral compartments and likely of at least mild to moderate severity in the patellofemoral compartments. There are relatively symmetric regions of patchy s clerosis in the posterior medullary space of the bilateral distal femurs stenting approximately 10 cm in length on the right than 8 cm on the left which are without evident associated endosteal scalloping, periosteal reaction or other aggressive features. Appearance of the sclerosis suggestive of chondroid matrix in the setting of enchondromas however the relative asymmetry and elongated extent would favor bone infarcts. No joint effusion/layering lipohemarthrosis in either knee. Soft tissues are unremarkable. IMPRESSION: 1. No joint effusion or acute osseous abnormality at either knee. 2. Relatively symmetric extensive sclerotic lesions in the bilateral distal femurs most likely representing either bone infarcts or enchondromas. Reviewed, dictated and finalized at location A. KEEPER IMPRESSION: 1. No joint effusion or acute osseous abnormality at either knee. 2. Relatively symmetric extensive sclerotic lesions in the bilateral distal fem urs most likely representing either bone infarcts or enchondromas.
--- NOTE | ~2025-04-26 | CT_ITS ---
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 Lower back pain TECHNIQUE: Computed tomography (CT) of the lumbar spine was performed without intravenous contrast. The dose-length product was 761.20 mGy-cm. COMPARISON: None FINDINGS: Lumbar vertebral body heights and alignment are within normal limits. No compression fracture in the lumbar spine. Mild bony irregularity of the inferior endplate of the L4 vertebral body which may be due to degenerative change. Other etiologies are possible in the appropriate clinical setting. Evaluation of the spinal canal contents and bilateral neuroforamen is limited due to CT technique. At the L4-L5 level, there is a small broad-based disc bulge with hypertrophy of ligamentum flavum and degenerative change in the facet joints causing moderate narrowing of the spinal canal and mild to moderate narrowing of the bilateral neural foramen. At the L5-S1 level, there is a small broad-based disc bulge causing mild narrowing of the spinal canal mild narrowing of the bilateral neural foramen. IMPRESSION: 1. No compression fracture in the lumbar spine. 2. At the L4-L5 level, there is a small broad-based disc bulge with hypertrophy of ligamentum flavum and degenerative change in the facet joints causing moderate narrowing of the spinal canal and mild to moderate narrowing of the bilateral neural foramen. 3. At the L5-S1 level, there is a small broad-based disc bulge causing mild narrowing of the spinal canal mild narrowing of the bilateral neural foramen. 4. Mild bony irregularity of the inferior endplate of the L4 vertebral body which may be due to degenerative change. Other etiologies are possible in the appropriate clinical setting. If of concern, consider an MRI of the lumbar spine with and without contrast for further assessment. If symptoms persist or worsen, consider a short-term follow-up study or additional imaging for further assessment. Reviewed, dictated and finalized at location Q. FUELER IMPRESSION: 1. No compression fracture in the lumbar spine. 2. At the L4-L5 level, there is a small broad-based disc bulge with hypertrophy of ligamentum flavum and degenerative change in the facet joints causing moder ate narrowing of the spinal canal and mild to moderate narrowing of the bilater al neural foramen. 3. At the L5-S1 level, there is a small broad-based disc bulge causing mild kiley rowing of the spinal canal mild narrowing of the bilateral neural foramen. 4. Mild bony irregularity of the inferior endplate of the L4 vertebral body whi ch may be due to degenerative change. Other etiologies are possible in the appr opriate clinical setting. If of concern, consider an MRI of the lumbar spine wi th and without contrast for further assessment. If symptoms persist or worsen, consider a short-term follow-up study or additio nal imaging for further assessment.
--- NOTE | ~2025-04-26 | XR_ITS ---
Examination: XR chest 1V Clinical History: Fall Comparison: 03/27/2025 Technique: Portable AP Findings: Right permacath. Heart size normal. Lungs clear. No acute bony abnormality. IMPRESSION: 1. No acute cardiopulmonary findings given portable technique. Reviewed, dictated and finalized at location R. RUNNER
--- NOTE | ~2025-04-26 | CT_ITS ---
CT HEAD NON-CONTRAST CT C-SPINE Clinical History: Unwitnessed fall Comparison: None Technique: Unenhanced axial images skull base to vertex. Coronal, sagittal reformats. Axial images thoracic inlet to skull base. Sagittal and coronal reformats. CT images acquired with automatic exposure control for dose reduction DLP: 681 mGy-cm Findings: Head: Chronic white matter microvascular ischemic changes. Right thalamic lacune. Sulci, ventricles: Unremarkable. No intracerebral hemorrhage. No evidence acute territorial infarct. No mass effect, midline shift, intra-/extra-axial fluid collection. Bony calvarium intact. Visualized paranasal sinuses: Clear. Mastoid air cells: Fluid right side. C-spine: No acute fracture or listhesis. Straightening of normal cervical lordosis. Moderate degenerative changes. Disc spaces maintained. Prevertebral soft tissues within normal limits. Visualized lung apices: Clear. Visualized thyroid: Unremarkable. No enlarged cervical nodes. IMPRESSION: HEAD: 1. No acute intracranial findings. C-SPINE: 1. No acute fracture. Reviewed, dictated and finalized at location R. RACTER IMPRESSION: HEAD: 1. No acute intracranial findings. C-SPINE: 1. No acute fracture.
--- NOTE | ~2025-04-26 | XR_ITS ---
Examination: XR pelvis 1-2V Clinical History: Fall Comparison: CT abdomen pelvis 06/27/2024 Technique: AP pelvis Findings/impression: 1. No fracture identified. Reviewed, dictated and finalized at location R. COUNSELOR
[2025-04-26 19:16] VITALS: BP 147/46; PULSE 72; RESP 20; TEMP 37; O2SAT 100
[2025-04-26 21:12] VITALS: BP 162/65; PULSE 66; RESP 18; O2SAT 100
--- NOTE | 2025-04-26 23:40 | ECG_ITS ---
Test Date: 2025-04-26 23:59:02 Measurements Intervals [place] Rate: 67 P: 81 PA: 151 QRS: 24 QRSD: 73 T: 67 QT: 409 QTc: 433 Interpretive Statements SINUS RHYTHM NONSPECIFIC ST-T WAVE ABNORMALITIES Compared to ECG 03/27/2025 17:08:21 No significant changes Electronically Signed On 04-27-2025 08:57:54 HYDRAULIC TESTER by Marco Anderson M.D.
[2025-04-27 00:15] LABS: Hematocrit 29.3 % (37.0-47.0); Hemoglobin 9.2 g/dL (12.0-15.0); Immature Granulocyte Percent A 0.4 % (0-0.5); Lymphocytes Absolute Auto 2.95 K/mm3 (0.9-3.2); Mean Corpuscular HGB Conc 31.4 g/dl (32-36); Mean Corpuscular Hemoglobin 30.8 pg (26-34); Mean Corpuscular Volume 98.0 fl (80-100); Nucleated Red Blood Cells Absolute Auto 0.000 K/mm3 (0.0-0.012); Nucleated Red Blood Cells Perc 0.0 % (0.0-0.2); Platelet Count Result 202 k/mm3 (150-375); Red Blood Count 2.99 M/mm3 (4.2-5.4); White Blood Count 9.1 K/mm3 (4.5-10.0)
[2025-04-27 00:29] LABS: Alanine Aminotransferase 15 U/L (6-35); Albumin Level 4.0 g/dL (3.5-5.1); Alkaline Phosphatase 117 U/L (38-126); Anion Gap 11 mmol/L (4-12); Aspartate Amino Transferase 19 U/L (14-36); Bilirubin,Total 0.4 mg/dL (0.2-1.3); Blood Urea Nitrogen 51 mg/dL (7-17); Calcium 9.7 mg/dL (8.4-10.2); Carbon Dioxide 28 mmol/L (22-30); Chloride 98 mmol/L (98-107); Estimated Glomerular Filt Rate 6; Glucose 252 mg/dL (65-110); Lipase 35 U/L (23-300); Potassium 4.8 mmol/L (3.4-5.0); Sodium 137 mmol/L (137-145); Total Protein 7.4 g/dL (6.3-8.2)
[2025-04-27 00:50] LABS: Influenza A QL RT-PCR Negative (Negative); Influenza B QL RT-PCR Negative (Negative); RSV RNA, RT-PCR Negative (Negative); SARS-CoV-2 RNA PCR Negative (Negative)
[2025-04-27 00:57] LABS: Add Urine Microscopic? YES; Appearance Urine Cloudy (Clear); Glucose Urine UA 3+ mg/dL (Negative); Leukocyte Esterase Ur 2+ LEU/UL (Negative); Need Manual Microscopic Reviewed; Nitrate Urine Negative (Negative); Non Pathogenic Casts 0-2; Specific Grav Ur 1.012 (1.001-1.035)
--- NOTE | 2025-04-27 01:19 | ED.GENADULT ---
HPI - General Adult General Chief complaint: Weakness Stated complaint: bilat leg pain Time Seen by Provider: 04/26/25 22:05 History of Present Illness HPI narrative: patient has dementia and is a poor historian. This is a 74-year-old female presenting for total body pain. Patient has dementia. At the time of my interview she is denying all complaints. She says that she has not pain anywhere. Earlier She saysshe did have pain that she described as all over her entire body with no focal areas. She is denying fevers chest pain difficulty breathing abdominal pain joint pain or any falls. She does not know why she is in the emergency department. I spoke with the patient's daughter who upset. She says that her mother was here 2 weeks ago for leg pain and that nothing was done in the emergency department. She says she is still having significant pain. When I told her that the patient denied anything to me she said she wanted a full body CT to see what was causing her pain. Per the daughter she found frozen floor of her room yesterday. At that time she not appear to have any significant injuries although she was complaining of some knee pain. Related Data Home Medications ?Medication ?Instructions ?Recorded ?Confirmed ?Last Taken ?Type acetaminophen 325 mg tablet 650 mg PO Q6H PRN Pain 09/19/21 11/09/24 Unknown History insulin glargine 100 unit/mL (3 11 unit subcut HS 09/19/21 11/09/24 11/08/24 23:30 History mL) subcutaneous pen (Lantus 11 units Solostar U-100 Insulin) insulin lispro 100 unit/mL 1 - 4 sliding scale dose subcut 09/19/21 11/09/24 11/08/24 18:30 History subcutaneous pen USEASDIRECTD 4+2 lidocaine 5 % topical patch 2 patch topical DAILY PRN Back Pain 09/19/21 11/09/24 11/07/24 07:00 History 2 patch multivitamin 1 tablet PO DAILY 09/19/21 11/09/24 11/09/24 07:00 History 1 tablet aspirin 81 mg chewable tablet 81 mg PO DAILY 06/28/24 11/09/24 11/09/24 07:00 History 81 mg benztropine 2 mg tablet 2 mg PO HS 06/28/24 11/09/24 11/08/24 23:30 History 2 mg hydralazine 25 mg tablet 25 mg PO TID 06/28/24 11/09/24 11/09/24 07:00 History 25 mg pantoprazole 40 mg tablet,delayed 40 mg PO DAILY 06/28/24 11/09/24 11/09/24 07:00 History release 40 mg atorvastatin 20 mg tablet 20 mg PO QPM 11/09/24 11/09/24 11/08/24 23:30 History 20 mg carvedilol 6.25 mg tablet 6.25 mg PO Q12H 11/09/24 11/09/24 11/09/24 07:00 History 6.25 mg meclizine 25 mg tablet 25 mg PO DAILY 11/09/24 11/09/24 11/09/24 07:00 History 25 mg Allergies Allergy/AdvReac Type Severity Reaction Status Date / Time No Known Allergies Allergy Verified 04/26/25 19:13 [facility] Past Medical History Medical History Drug-induced Parkinson's disease Heart failure with preserved ejection fraction Insulin dependent diabetes mellitus Chronic kidney disease, stage 4 (severe) Creatinine ranges from 1.9 to 2.20. Venous thrombosis Anemia Hyperkalemia Dementia COVID (06/2021) Schizophrenia Diabetic neuropathy Surgical History Surgical History History of cataract extraction with lens replacement History of section Right great toe amputee Family History Family History Mother Diabetes mellitus Acute myocardial infarction Father Heart attack Cancer Sibling Diabetes mellitus Acute myocardial infarction Social History Social History Social History: The patient lives with her daughter and grand son in [place]. Lifelong nonsmoker. No alcohol or illicit substance abuse. She designates her daughter, Candelaria Gayle, as her surrogate decision maker. Code status: Full code. Alcohol intake: never Substance use: never Substance use type: does not use Do You Feel Safe in your Home?: Yes Lack of Transportation: No Lack of Food: Never True Current Housing: I Have Housing Concerned About Future Housing: No Difficulty Paying Gas/Electric Bills: No Difficulty Paying for Meds: No Currently Unemployed: No Education: Master's Degree or Higher Difficulty w/ Childcare or Family Care: No Living arrangements: with family Spiritual care concerns: Yes Exam Narrative: APPEARANCE: No apparent distress. Head: atraumatic. EYES: EOMI, NOSE: Atraumatic NECK/back: Trachea midline, no midline tenderness. RESPIRATORY: No increased rate of breathing Clear to auscultation CARDIOVASCULAR: RRR, dialysis access in the right anterior chest wall ABDOMINAL: Non-distended soft nontender MUSCULOSKELETAl: Head to toe trauma exam performed no areas of obvious injury. Focal exam of the lower extremity reveals no signs of trauma to the knees, swelling bruising. No pain on active or passive range of motion. palpable pulses in both feet. straight leg negative bilaterally. NEURO: Alert. Moving 4/4 extremities SKIN:: Warm, dry. Normal color PSYCHIATRIC: Normal affect Course Vital Signs Vital signs: Vital Signs Temperature 98.6 F 04/26/25 19:16 Pulse Rate 72 04/26/25 19:16 Respiratory Rate 20 04/26/25 19:16 Blood Pressure 147/46 H 04/26/25 19:16 Pulse Oximetry 100 04/26/25 19:16 Oxygen Delivery Room Air 04/26/25 19:16 Temperature 98.6 F 04/26/25 19:16 Pulse Rate 66 04/26/25 21:12 Respiratory Rate 18 04/26/25 21:12 Blood Pressure 162/65 H 04/26/25 21:12 Pulse Oximetry 100 04/26/25 21:12 Oxygen Delivery Room Air 04/26/25 21:12 Medical Decision Making [facility] Narrative Medical decision making narrative: -Course: 74-year-old female presenting to the ED with complaint of total body pain although she is now denying any complaints. I reached out to her daughter who is very upset and would like the patient to have a full-body CT scan to figure out why her mother is hurting.. I explained at length that is not service provided in the emergency department. I told her that I would address her concerns of the knee pain/ lower back pain with imaging which was obtained. Imaging of the head, C-spine, L-spine were negative for acute findings per stat rad. Both knees chest and pelvis did not reveal any acute injuries on my interpretation. Official read will occur in the morning. Laboratory studies were within normal limits. Urinalysis did show greater than 100 white blood cells. No CVA tenderness. No elevations white count or fever. this was discussed with the daughter and she would like her to be treated with antibiotics. She was given a dose of IV ceftriaxone started Keflex. Patient was re-evaluated is still resting comfortably in bed with no complaints. I called the daughter and updated her on results. Patient be discharged home to follow up with primary care physician. -DDX includes but is not limited to: Arthritis, dementia, UTI dehydration, fluid overload Vital Signs Vital Signs: Vital Signs Temperature 98.6 F 04/26/25 19:16 Pulse Rate 72 04/26/25 19:16 Respiratory Rate 20 04/26/25 19:16 Blood Pressure 147/46 H 04/26/25 19:16 Pulse Oximetry 100 04/26/25 19:16 Oxygen Delivery Room Air 04/26/25 19:16 Temperature 98.6 F 04/26/25 19:16 Pulse Rate 66 04/26/25 21:12 Respiratory Rate 18 04/26/25 21:12 Blood Pressure 162/65 H 04/26/25 21:12 Pulse Oximetry 100 04/26/25 21:12 Oxygen Delivery Room Air 04/26/25 21:12 Lab Data 04/27/25 00:06 04/27/25 00:06 Labs: Lab Results 04/27/25 04/27/25 Range/Units 00:06 00:20 WBC 9.1 (4.5-10.0) K/mm3 RBC 2.99 L (4.2-5.4) M/mm3 Hgb 9.2 L (12.0-15.0) g/dL Hct 29.3 L (37.0-47.0) % MCV 98.0 (80-100) fl MCH 30.8 (26-34) pg MCHC 31.4 L (32-36) g/dl RDW 14.3 (11.5-14.5) % Plt Count 202 (150-375) k/mm3 MPV 9.9 (7.4-10.4) fl Immature Gran % (Auto) 0.4 (0-0.5) % Neut % (Auto) 55.8 (45.5-73.1) % Lymph % (Auto) 32.5 (18.3-44.2) % [place] % (Auto) 9.1 H (2.6-8.5) % Eos % (Auto) 1.8 (0-4.4) % Baso % (Auto) 0.4 (0.2-1.2) % Lymph # (Auto) 2.95 (0.9-3.2) K/mm3 [place] # (Auto) 0.8 H (0.1-0.6) K/mm3 Eos # (Auto) 0.2 (0-0.3) K/mm3 Baso # (Auto) 0.0 (0.0-0.1) K/mm3 Abs Immat Gran (auto) 0.04 H (0.00-0.031) K/mm3 Absolute Neuts (auto) 5.1 (1.3-6.7) K/mm3 Absolute Nucleated RBC 0.000 (0.0-0.012) K/mm3 Nucleated RBC % 0.0 (0.0-0.2) % Sodium 137 (137-145) mmol/L Potassium 4.8 (3.4-5.0) mmol/L Chloride 98 (98-107) mmol/L Carbon Dioxide 28 (22-30) mmol/L Anion Gap 11 (4-12) mmol/L BUN 51 H D (7-17) mg/dL Creatinine 6.93 H (0.7-1.0) mg/dL Estim Creat Clear Calc Not Reportable Estimated GFR 6 L (59 - ) Glucose 252 H (65-110) mg/dL Calcium 9.7 (8.4-10.2) mg/dL Total Bilirubin 0.4 (0.2-1.3) mg/dL AST 19 (14-36) U/L ALT 15 (6-35) U/L Alkaline Phosphatase 117 (38-126) U/L Total Protein 7.4 (6.3-8.2) g/dL Albumin 4.0 (3.5-5.1) g/dL Lipase 35 (23-300) U/L Urine Color Yellow (Yellow) Urine Appearance Cloudy H (Clear) Urine pH 7.0 (5.0-9.0) Ur Specific [place] 1.012 (1.001-1.035) Urine Protein 2+ H (Negative) mg/dL Urine Glucose (UA) 3+ H (Negative) mg/dL Urine Ketones Negative (Negative) mg/dL Ur Blood (Man) Trace (Negative) Urine Nitrate Negative (Negative) Urine Bilirubin Negative (Negative) Urine Urobilinogen 0.2 (<2.0) mg/dL Add Ur Microanalysis Reviewed Leukocyte Esterase Rfl 2+ H (Negative) RENEE/UL Urine RBC 0-2 (0-2) /hpf Urine WBC >100 H (0-3) /hpf Ur Squamous Epith Cells None seen (Few) /hpf Urine Bacteria 1+ H /hpf Urine Casts 0-2 Influenza A (RT-PCR) Negative (Negative) Influenza B (RT-PCR) Negative (Negative) RSV (RT-PCR) Negative (Negative) SARS-CoV-2 RNA (RT-PCR) Negative (Negative) Discharge Plan Discharge Clinical Impression: Acute UTI Patient Disposition: Home Condition: Stable Instructions: Antibiotic Form, Dysuria (ED) Additional Instructions: Barbara was seen in the emergency department for total body she is denying any pain to me on my evaluation. Imaging of her head, neck, lower back, chest pelvis and knees did not reveal any acute traumatic injuries. Her laboratory studies were within expected limits given her ESRD. Her urine had some white blood cells and we will treat her with antibiotics although she does not have symptoms. Please follow-up with your primary care physician for further management. If she develops any new symptoms she can return to the ED for re-evaluation. Patient Language: Egyptian Prescriptions: New cephalexin 500 mg capsule 500 mg PO Q12H Qty: 14 0RF No Action acetaminophen 325 mg Tablet 650 mg PO Q6H PRN (Reason: Pain) insulin glargine [Lantus Solostar U-100 Insulin] 100 unit/mL (3 mL) insulin pen 11 unit SUBCUT HS Rx Instructions: HOLD IF BLOOD GLUCOSE < 130 multivitamin Tablet 1 tablet PO DAILY lidocaine 5 % Adhesive Patch,Medicated 2 patch TOPICAL DAILY PRN (Reason: Back Pain) Rx Instructions: to bilateral lower back insulin lispro 100 unit/mL Insulin Pen 1 - 4 sliding scale dose SUBCUT USEASDIRECTD Patient Comments: 4 SCHEDULED WITH MEALS, IF BLOOD GLUCOSE > 100 Rx Instructions: 150 or less: no insulin 151-200: 1 unit 201-250: 2 units 251-300: 3 units greater than 300: 4 units pantoprazole 40 mg tablet,delayed release (DR/EC) 40 mg PO DAILY aspirin 81 mg tablet,chewable 81 mg PO DAILY hydralazine 25 mg tablet 25 mg PO TID Rx Instructions: HOLD DOSE PRIOR TO DIALYSIS TREATMENT benztropine 2 mg tablet 2 mg PO HS tramadol-acetaminophen 37.5-325 mg tablet 1 tablet PO Q6H PRN (Reason: pain) Qty: 14 0RF atorvastatin 20 mg tablet 20 mg PO QPM carvedilol 6.25 mg tablet 6.25 mg PO Q12H meclizine 25 mg tablet 25 mg PO DAILY Rx Instructions: START ON 11/07/24, END ON 11/11/24 gabapentin 100 mg Capsule 100 mg PO DAILY Qty: 30 0RF gabapentin 100 mg capsule 100 mg PO .COMPLEX Qty: 30 0RF Rx Instructions: 100 mg orally; ONLY DURING DIALYSIS ON DIALYSIS DAYS post dialysis treatment Follow-up/Referrals: Nilo,Cherelle Butterfield MD [Primary Care Provider, Unknown]
[2025-04-27] MEDS: cefTRIAXone 1 GM in SODIUM CHLORIDE 0.9% IV 50 ML 100 ML IVPB (02:12)
--- OUTSIDE RECORDS SUMMARY | 2025-04-27 15:43 | XMS_ITS ---
Author Organization [facility] Address [address] [place] [address] Care Team Providers Care Swine Extension Field Specialist Name Role Phone Cherelle Corcoran MD Primary Care Pro vider Mark Queen MD Unavailable [phone] Rudolph Welch MD Unavailable Markie Ryan MD Unavailable Jimbo Strauss MD Unavailable [phone] Jaya Grier MD Unavailable Edgardo Kauffman [...] EYE EXAM Routine 01/20/2025 11:51 AM CDT EGFR Timed 11/25/2024 12:58 PM CDT HEMOGLOBIN [...] nostril daily as needed for rhinitis Active gabapentin (NEURONTIN) 100 mg capsuleIndicatio ns:Diabetic [...] (HCC) Use to continually monitor glucose, change sensor [...] use of insulin ([facility]) Inject 4 units SQ before meals along [...] DAILY 90 tablet 1 2024 Active lidocain-me.sali lsa-lqho-lrpgi 4-20-0.025-5 % adhesive patch,medicated Apply 1 patch [...] hours as needed for pain 45 tablet 2024 Active blood glucose diagnostic (Easy Touch Test Strip) stripIndications :Type 2 diabetes mellitus with chronic kidney disease on chronic dialysis, with long-term current use of insulin (HCC) 1 each by other route daily 100 strip 3 2024 Active lancets misc Use to test blood glucose once daily 100 each 1 2024 Active blood-glucose meter (Easy-Touch Blood Glucose Meter) miscIndications: Type 2 diabetes mellitus with chronic kidney disease on chronic dialysis, with long-term current use of insulin (HCC) Use as directed to test glucose against cgm readings once daily 1 each 1 2024 Active FreeStyle Madhav 3 [place] misc Use as directed to monitor blood glucose 1 each 2024 Active omeprazole (PriLOSEC) 20 mg capsuleIndicatio ns:Gastroesophag eal reflux disease, unspecified whether esophagitis present Take 1 capsule (20 mg total) by mouth daily 90 capsule 09/06 Discontinued methoxy peg-epoetin beta (MIRCERA INJ) 75 mcg once every 2 weeks 04/18 Active Problems Problem Noted Date Diagnosed Date [...] diabetes m maryamitus 07/07/2024 Assessment & Plan (02/27/2025 11:36 AM CDT): on atorvastatin Assessment & Plan (10/24/2024 11:30 AM CDT): Preivously discussed ok to restart atorvastatin, but also given overall health status reasonable to continue holding, especially if had side effects with restarting Assessment & Plan (07/14/2024 2:30 PM BRIDAL CONSULTANT): Continue Lipitor Assessment & Plan (07/14/2024 8:56 AM BRIDAL CONSULTANT): Ok to restart atorvastatin, but also given [...] 10/30/2023 Assessment & Plan (05/06/2024 7:49 AM BRIDAL CONSULTANT): Reviewed hospital discharge summary Now resolved Upcoming [...] stable Assessment & Plan (07/24/2023 1:51 PM BRIDAL CONSULTANT): Chronic/stable Parkinsonism 08/14/2022 Assessment & Plan (02/27/2025 11:37 AM CDT): Following with neurology Assessment & Plan (10/24/2024 10:57 AM CDT): Following with neurology Assessment & Plan (07/14/2024 8:54 AM BRIDAL CONSULTANT): Following with neurology, recommend reaching out to them in regards to restarting benztropine. Consider waiting until after restarts other medications given daughter reports tremors controlled off benztropine currently Assessment & Plan (11/10/2023 4:43 PM CDT): Following with neurology On cogentin Assessment & Plan (07/24/2023 1:50 PM BRIDAL CONSULTANT): Following with neurology On cogentin twice a day Assessment & Plan (01/23/2023 9:20 AM CDT): Following with neurology On cogentin twice a day Assessment & Plan (10/10/2022 10:41 AM CDT): Following with neurology On cogentin Assessment & Plan (08/14/2022 10:46 AM BRIDAL CONSULTANT): Following with neurology, reviewed note On cogentin [...] walker. - PT/OT recommends SNF. -Plan [facility] on 11/26 ? Assessment & Plan (11/24/2021 2:07 PM CDT): Deconditioning 2/2 prolonged hospitalization. Daughter reports that prior to her illness, she was independent with a walker. - PT/OT recommends SNF. -Plan [facility] on 11/25. Assessment & Plan (11/23/2021 12:24 PM CDT): Deconditioning 2/2 prolonged hospitalization. Daughter reports that prior to her illness, she was independent with a walker. - PT/OT recommends SNF. -Plan [facility] on 11/25. Assessment & Plan (11/22/2021 1:34 PM CDT): Deconditioning 2/2 prolonged hospitalization. Daughter reports that prior to her illness, she was independent with a walker. - PT/OT recommends SNF. -Plan [facility] on 11/25. Assessment & Plan (11/21/2021 [...] care Assessment & Plan (08/14/2022 10:47 AM BRIDAL CONSULTANT): Following with podiatry Assessment & Plan (04/02/2022 [...] Goal weight 155lbs -Home with family at [place], infection prevention coordinator consulted to review salt restrictions. -outpatient [...] renal consulted regarding volume management, possible terminal computer operator dialysis planning, expedite OP f/u. Serologies and urine studies ordered. ED neg, compliments neg, cryoglobulin pending, ANCA pending, HIV neg. Continued -Added metolazone 2.5mg/daily per renal 09/13- with improving swelling, Cr bump to 2.33 so held further -Anticipate likely transition to PO agents prior to DC (?09/17) with ongoing clinical improvement. Goal weight 155lbs -Home with family [place], infection prevention coordinator consulted to review salt restrictions. Assessment [...] Goal weight 145-150lbs -Home with family [place], infection prevention coordinator consulted to review salt restrictions. Assessment [...] renal consulted regarding volume management, possible terminal computer operator dialysis planning, expedite OP f/u. Serologies [...] renal consulted regarding volume management, possible terminal computer operator dialysis planning, expedite OP f/u. Assessment [...] neg 1/2-1L/day. -consider renal consult regarding terminal computer operator dialysis planning, expedite OP f/u. Assessment [...] neg 1/2-1L/day. -consider renal consult regarding terminal computer operator dialysis planning. Assessment & Plan (09/06/2021 [...] neurology Assessment & Plan (07/14/2024 8:53 AM BRIDAL CONSULTANT): Following with neurology Assessment & Plan (01/05/2024 10:40 PM CDT): Follows with neurology. -continue risperidone 2mg QHS -continue benztropine 2mg daily Assessment & Plan (11/10/2023 4:37 PM CDT): Following with neurology Assessment & Plan (07/24/2023 1:50 PM BRIDAL CONSULTANT): Following with neurology Assessment & Plan (01/23/2023 9:18 AM CDT): Following with neurology Assessment & Plan (10/10/2022 10:37 AM CDT): Following with neurology, ordered MRI, # given to son to schedule Assessment & Plan (06/09/2022 3:37 PM BRIDAL CONSULTANT): Needs to reschedule with neurology Looking into [facility], but declined for [facility] for schizoaffective disorder Assessment & Plan [...] needed Assessment & Plan (06/09/2022 3:37 PM BRIDAL CONSULTANT): Reviewed PMH & FH PHQ Screening PHQ-2 Total Score (If total score is 3 or more points, staff should administer the PHQ-9): 0 Hearing/vision screening reviewed, referrals placed as needed Fall risk reviewed Reviewed medications and supplements Specialists: endocrine, nephrology, cardiology, neurology evidence of cognitive impairment HCM: orders placed as needed Assessment & Plan (01/08/2021 3:44 PM CDT): Reviewed PMH & FH PHQ [...] psychiatry Assessment & Plan (08/18/2024 8:44 AM BRIDAL CONSULTANT): Chronic, stable. Does not report any stephanie [...] discussed. Assessment & Plan (07/14/2024 8:54 AM BRIDAL CONSULTANT): Following with psychiatry, recommend reaching out to [...] psychiatry Assessment & Plan (07/24/2023 1:50 PM BRIDAL CONSULTANT): Following with psychiatry Assessment & Plan (01/23/2023 [...] discussed. Assessment & Plan (08/09/2021 5:42 AM BRIDAL CONSULTANT): Following with psychiatry Assessment & Plan (08/07/2021 3:28 PM BRIDAL CONSULTANT): Chronic condition, switch to Haldol and has had multiple different problems including acute kidney failure in infectious process. Records not available at outside hospital-[place]. Confounded by delirium. Currently experiencing delirium will discontinue Haldol and return to Risperdal as previously taking. Risperdal was discontinued due to poorly-controlled diabetes. Monitor in 1 to 2 weeks. Assessment & Plan (07/03/2021 7:24 AM BRIDAL CONSULTANT): Following with psychiatry D/c risperidone, started on haldol Assessment & Plan (07/01/2021 9:16 PM BRIDAL CONSULTANT): Chronic, stable. 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 The patient previously lived on her own and was observed to be hoarding. See additional problems-dementia. Evaluate again in 1 month after starting Risperdal. Iron deficiency anemia 04/02/2020 Assessment & Plan (05/06/2024 7:51 AM BRIDAL CONSULTANT): Recommend discussing IV iron with nephrology Assessment & Plan (10/02/2020 4:35 PM CDT): Continue iron Assessment & Plan (05/28/2020 1:51 PM BRIDAL CONSULTANT): Iron levels recently normalized, but still anemic, [...] GI Assessment & Plan (07/14/2024 8:56 AM BRIDAL CONSULTANT): Restart protonix Upcoming EGD Assessment & Plan (01/05/2024 10:40 PM CDT): -continue famotidine Assessment & Plan (10/02/2020 4:35 PM CDT): Continue omeprazole Assessment & Plan (07/24/2020 2:06 PM BRIDAL CONSULTANT): Recurrent symptoms off omeprazole, restart Assessment & Plan (05/28/2020 1:51 PM BRIDAL CONSULTANT): Iron levels recently normalized, but still anemic, repeat today Assessment & Plan (04/02/2020 1:26 PM CDT): Start PPI History of amputation of toe 01/19/2020 Assessment & Plan (01/08/2021 3:50 PM CDT): Stable Assessment & Plan (10/02/2020 4:35 PM CDT): Stable Assessment & Plan (04/30/2020 1:00 PM BRIDAL CONSULTANT): Stable Assessment & Plan (02/14/2020 5:15 PM [...] controlled Assessment & Plan (07/14/2024 2:32 PM BRIDAL CONSULTANT): Continue carvedilol, hydralazine Assessment & Plan (07/14/2024 8:51 AM BRIDAL CONSULTANT): BP controlled today off medication Daughter reports nephrology said could restart medication, is planning to restart coreg first and monitor blood pressure prior to restarting nifedipine/hydralazine Assessment & Plan (05/06/2024 7:48 AM BRIDAL CONSULTANT): BP controlled Continue nifedipine, hold prior to [...] with HD. Most recent admission at [facility] with initiation of hydralazine and nifedipine [...] amlodipine Assessment & Plan (08/03/2023 4:02 PM BRIDAL CONSULTANT): BP uncontrolled Start 5mg amlodipine Assessment & Plan (07/24/2023 1:49 PM BRIDAL CONSULTANT): Blood pressure borderline today off medications Assessment & Plan (01/23/2023 9:18 AM CDT): Blood pressure borderline low today, asymptomatic Checking labs Advised to decrease amlodipine to 5mg and monitor blood pressure Assessment & Plan (10/10/2022 10:50 AM CDT): Continue coreg 6.25mg twice a day & 40mg valsartan Assessment & Plan (08/14/2022 10:43 AM BRIDAL CONSULTANT): Blood pressure at goal, continue coreg 6.25mg twice a day Assessment & Plan (06/09/2022 3:32 PM BRIDAL CONSULTANT): Blood pressure at goal, continue coreg 3.125mg [...] day Assessment & Plan (08/05/2021 10:35 AM BRIDAL CONSULTANT): Blood pressure at goal Increase amlodipine to 10mg & d/c hydralazine per cardiology Assessment & Plan (05/28/2021 4:59 PM BRIDAL CONSULTANT): Blood pressure above goal, but previously within [...] lisinopril Assessment & Plan (08/28/2020 12:12 PM BRIDAL CONSULTANT): Blood pressure at goal Continue lisinopril Assessment & Plan (07/24/2020 2:05 PM BRIDAL CONSULTANT): Blood pressure at goal Continue lisinopril Assessment & Plan (05/28/2020 1:50 PM BRIDAL CONSULTANT): BP borderline Continue 10mg lisinopril Continue to monitor Assessment & Plan (04/30/2020 12:32 PM BRIDAL CONSULTANT): BP borderline Continue 10mg lisinopril Continue to [...] endocrine Assessment & Plan (07/14/2024 2:31 PM BRIDAL CONSULTANT): Controlled. Continue as per Endocrine and PCP Assessment & Plan (07/14/2024 8:50 AM BRIDAL CONSULTANT): Following with endocrine, reviewed note Holding insulin [...] +SSI Assessment & Plan (07/24/2023 1:49 PM BRIDAL CONSULTANT): Lab Results Component Value Date HGBA1C 8.1 [...] trulicity Assessment & Plan (08/14/2022 10:42 AM BRIDAL CONSULTANT): Following with endocrine Continue lantus, 12 units humalog TIDAC & 1.5mg trulicity Assessment & Plan (06/09/2022 3:32 PM BRIDAL CONSULTANT): Following with endocrine Home blood sugar at [...] for strict med oversight by family at [place] reviewed with daughter this admit. Assessment & [...] for strict med oversight by family at [place] reviewed with daughter this admit. Assessment & [...] and nephropathy. Med oversight by family at [place]. Assessment & Plan (09/14/2021 12:22 PM CDT): [...] as she had discussed this with outpatient machine maintenance technician - repeat A1c - resume home statin, not currently on feliciano due to kidney function Assessment & Plan (08/05/2021 10:35 AM BRIDAL CONSULTANT): Continue 15 units lantus twice a day Assessment & Plan (07/03/2021 7:24 AM BRIDAL CONSULTANT): Fasting blood sugar significantly improved Risperidone changed Continue current meds Continue to monitor Assessment & Plan (06/18/2021 11:22 AM BRIDAL CONSULTANT): Increase lantus to 60 units nightly, if blood sugar still above goal after 1 week split into 33 units twice a day Follow up with blood sugar via portal in 2 weeks Continue jardiance 25mg Continue trulicity 4.5mg weekly Assessment & Plan (05/28/2021 4:58 PM BRIDAL CONSULTANT): Increase lantus to 55 units nightly Continue [...] weekly Assessment & Plan (08/28/2020 1:00 PM BRIDAL CONSULTANT): DM Care Plan: Meds: Lantus - continue [...] recheck Assessment & Plan (07/24/2020 2:05 PM BRIDAL CONSULTANT): Formulary change 2/2 insurance, switched to trulicity. Will increase to 1.5mg Assessment & Plan (05/28/2020 1:50 PM BRIDAL CONSULTANT): Check a1c Barbara isn't checking blood sugar regularly, but when she is she has several >200 so I lean towards increasing if a1c>7 Assessment & Plan (04/30/2020 12:31 PM BRIDAL CONSULTANT): Blood sugar improved on 40 units basaglar [...] Trivalent, IM (MDV) 04/17/2017 PPD TEST 10/22/2023 [employer] SARS-CoV-2 Monovalent Vaccination (12+ Yrs) PURPLE 06/11/2021,10/13/2020,09/22/2020 [...] In the past 12 months has [employer], [employer], or water [employer] threatened to shut off services in your home? Yes 11/07/2024 Social Connection and Isolation Panel Answer Date Recorded In a typical week, how many times do you talk on the phone with family, friends, or neighbors? Patient unable to answer 11/07/2024 How often do you get togethe r with friends or relatives? Patient unable to answer 11/07/2024 How often do you attend [facility] or restoration services? Patient unable to answer 11/07/2024 Do [...] the past 12 m [facility], were you homeless or living in a jail (including now)? No 11/07/2024 Personal Safety Answer Date Recorded Have you ever been in or are you currently in a harmful physical or emotional relationship or is someone making you feel afraid or unsafe? Denies 11/01/2024 Comments No Sex and Gender Information Value Date Recorded Sex Assigned at Not on file Legal Sex Female 9:03 AM BRIDAL CONSULTANT Gender Identity Female 02/08/2020 6:39 PM [...] Rafaela Paulino M.D. TW: TW Report ID: [id number] Reading Location: [id number] Procedure Note Rafaela Paulino MD - 02/27/2025 [...] by Rafaela Paulino M.D. TW: Report ID: [id number] Reading Location: [place] [address] Cherelle Corcoran MD IMG XR PROCEDURES Final Result * (ABNORMAL) DIABETES EYE EXAM (01/20/2025 11:51 AM CDT) SCRIBED DIABETIC DILATED EYE EXAM Abnormal Historical Provider HEALTH MAINTENANCE Final Result * (ABNORMAL) eGFR (11/25/2024 12:58 [...] last reviewed 2021. Testing performed by: [facility], [address] [place] [address]., [address] Blood 11/25/2024 12:5 8 PM CDT 11/25/2024 2:12 PM CDT us Notinfile Unknown LAB BLOOD ORDERABLES Final Res ult NILSA [address] [facility] Department [place] [address] * (ABNORMAL) Hemoglobin A1c (11/01/2024 10:05 PM CDT) Hgb A1C 7.1(H) 4.0 - 5.6 % Estimated Average Glucose 157 mg/dL NILSA RODRIGES Comment: The ADA recommends reporting an estimated Average Glucose (eAG) with all Hemoglobin A1c results using the equation derived from a study of 507 normal and diabetic adults. Minority populations were underrepresented and children were not included. (Diabetes Care 31:0091-7276, 2008). The eAG is not equivalent to a fasting glucose. Blood 11/01/2024 10:0 5 PM CDT 11/01/2024 10:15 PM CDT us Brad Smallwood DISTRICT ADMINISTRATOR LAB BLOOD ORDERABLES Fin al Result NILSA [address] [facility] Department [place] [address] * (ABNORMAL) Lipid panel (11/01/2024 10:05 PM [...] revised on 2018. Chol/HDL ratio 3 NILSA Blood 11/01/2024 10:0 5 PM CDT 11/01/2024 10:15 PM CDT us Brad Sebastien Smallwood DISTRICT ADMINISTRATOR LAB BLOOD ORDERABLES Fin al Result NILSA [address] [facility] Department [place] [address] * Colonoscopy (03/01/2024 8:49 AM CDT) Anatomical Region Laterality Modality Other Narrative Procedure Note Jaya Grier MD - 03/01/2024 8:49 AM CDT [facility] GI ENDOSCOPY Patient Name: Barbara Chakraborty Procedure Date: 03/01/2024 8:49 AM Date of : 1950 Admit Type: Outpatient Age: 73 Gender: Female Attending MD: Jaya Grier M.D. Room: [facility] ENDOSCOPY ROOM 06 Note Status: [...] The scope was passed under direct vision.The [id number] colonoscope was introduced through theanus and advanced [...] colonoscopy in 3 years for surveillance. Jaya Grier, M.D. Jaya Grier M.D. 03/01/2024 9:09:38 AM . Number of Addenda: 0 Note Initiated On: 03/01/2024 8:49 AM Recognized by the [employer] for promoting quality [...] taking vitamin-D. History of end-stage renal disease. Seamer Panty Hose/Model: Enerplant A (S/N [id number]) CLINICAL INFORMATION: Current height: 61 inches Maximum [...] Rafaela Paulino M.D. TW: TW Report ID: [id number] Reading Location: [id number] Procedure Note Rafaela Paulino MD - 01/22/2024 EXAM DESCRIPTION: DEXA AXIAL SKELETON BONE DENSITY 1 OR MORE SITES REASON FOR STUDY: 73 y/o year old F with given history of: Post menopausal status. History of taking vitamin-D. History of end-stagerenal disease. Seamer Panty Hose/Model: Enerplant A (S/N [id number]) CLINICAL INFORMATION: Current height: 61 inches Maximum [...] Rafaela Paulino M.D. TW: FAIZAN Report ID: [id number] Reading Location: [id number] us Cherelle Corcoran MD IMDiaz DXA PROCEDURE [...] age 40, based on guidelines of the [employer] (ACR Practice Parameter for the Performance of Screening and Diagnostic Mammography) and [employer]. For women [...] CDT Jimbo Strauss MD LAB MICROBIOLOGY - [facility] Final Result Performing Organization Address City/[facility] Co de Phone Number NILSA [address] [facility] Department [place] [address] * (ABNORMAL) Albumin Creatinine Ratio, Urine (10/10/2022 11:39 AM CDT) Albumin Ur 3,240.2 mg/L NILSA Comment: Interpretive Data No reference range established. Current interpretive data was last revised 2018. Testing performed by: [address] [address] Creatinine Ur 74.8 mg/dL NILSA Comment: Interpretive Data No reference range established. Current interpretive data was last revised 2018. Testing performed by: [address] [address] Albumin Creatinine Ratio, Ur 4,332(H) 1 - 29 mg/g NILSA Comment:Testing performed by : [address] [address] Urine 10/10/2022 11:3 9 AM CDT 10/10/2022 1:45 PM CDT Markie Ryan MD LAB URINE ORDERABLES Final Re sult Performing Organization Address City/[facility]/ZIP Co de Phone Number NILSA [address] Department [place] [address] from Last 3 Months or Most Recently Relevant to Health Maintenance
--- OUTSIDE RECORDS SUMMARY | 2025-04-27 15:43 | XMS_ITS ---
Author Organization [facility] Care Team Providers Care Agribusiness Internship Name Role Phone Mark Canada Unavailable Unavailable Sarahy Tanner Unavailable Unavail able Allergies and adverse reactions No Known Allergies Care Team Name Role Address Phone Organization Dates Mark Canada PCP [address] [place], [place], [facility] (Office): : [facility] 10/22/2023 - 10/23/2023 Sarahy Tanner [address] , [place], [place], [facility], [facility] (Office): : [facility] 10/22/2023 - 10/23/2023 Goals Section Goals Description Status Target Date Resident will comply [...] completed tuberculin skin test; unspecified formulation lotNumber: [id number] expiry: 08/20/2024 Mfg: Aplisol 0.1 ml Given 0.1 ml Left Forearm subcutaneously 98 CVX created date: 10/23/2023 consent date: 10/23/2023 administere d date: 10/23/2023 Mental Status Section Date Assessment Total Score Description 10/23/2023 BIMS 11 moderate cognit amanda impairment CAM 0 No delirium ind icated PHQ-9 10 moderate depres jannette 10/23/2023 CAM 0 No delirium ind icated Insurance Providers Plan of Treatment Section Interventions Intervention Code Code System Display Name Proposed D ate Problems Problem # Description Date of onset Resolved Date Code CodeSystem Concern Status 1 ACQUIRED ABSENCE OF OTHER RIGHT TOE(S) 10/22/[address] active 2 ACUTE AND CHRONIC RESPIRATORY FAILURE WITH HYPOXIA 10/22/[address] active 3 ALZHEIMER'S DISEASE, UNSPECIFIED 10/22/[address] active 4 BANDEMIA 10/22/[address] active 5 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 10/22/[address] active 6 COGNITIVE COMMUNICATION DEFICIT 10/22/[address] active 7 DEPENDENCE ON RENAL DIALYSIS 10/22/[address] active 8 DISORIENTATION, UNSPECIFIED 10/22/[address] active 9 END STAGE RENAL DISEASE 10/22/[address] active 10 ESSENTIAL (PRIMARY) HYPERTENSION 10/22/[address] active 11 FRONTAL LOBE AND EXECUTIVE FUNCTION DEFICIT 10/22/[address] active 12 GASTRO-ESOPHAGEAL REFLUX DISEASE WITHOUT ESOPHAGITIS 10/22/[address] active 13 IRON DEFICIENCY ANEMIA SECONDARY TO BLOOD LOSS (CHRONIC) 10/22/[address] active 14 OTHER ABNORMALITIES OF GAIT AND MOBILITY 10/22/[address] active 15 PARKINSON'S DISEASE WITH DYSKINESIA, WITH FLUCTUATIONS 10/22/[address] active 16 SCHIZOAFFECTIVE DISORDER, BIPOLAR TYPE 10/22/[address] active 17 TYPE 2 DIABETES MELLITUS WITH DIABETIC AUTONOMIC (POLY)NEUROPATHY 10/22/[address] active 18 UNSPECIFIED COMBINED SYSTOLIC (CONGESTIVE) AND DIASTOLIC (CONGESTIVE) HEART FAILURE 10/22/[address] active 19 WEAKNESS 10/22/[address] active Reason for Referral No Reasons for Referral Entered Social History Social History Observation Description Start Date End Date Code Code System Current Smoking Status Tobacco smoking consumption unknown 259388987 SNOMED CT Sex Assigned At Female 1950 19170-5 [facility] Gender Identity Female [id number] [address] Sexual Orientation Vital Signs Code Code System Vitals Name Values and Units Timing Information 32310-4 [facility] Pain Level Value=0.0 10/24/2023 28408-4 [facility] O2 % BldC Oximetry Value=98.0 Units= % 10/24/2023 08390-6 [facility] Weight Uvcic=208.3 Units=Lbs 08/2023 8302-2 [facility] Height Value=62.0 Units=Inches 10/23/2023 9279-1 [facility] Respiratory Rate Value=14.0 Units=/m in 10/23/2023 8462[facility]4 [facility] Blood Pressure-Diastolic Value=62 Un its=mmHg 10/23/2023 8480-6 [facility] Blood Pressure-Systolic Zzzcl=998 Un its=mmHg 10/23/2023 8310-5 [facility] Body Temperature Value=97.5 Units= F 10/23/2023 8867-4 [facility] Heart rate Value=66.0 Units=/min 08/2023
--- OUTSIDE RECORDS SUMMARY | 2025-04-27 15:43 | XMS_ITS | Encounter Summary ---
Author Organization [facility] Healthcare Address [address] [place] [address] Care Team Providers Care Port Crane Operator Name Role Phone Cherelle Corcoran MD Primary Care Pro vider Mark Queen MD Unavailable [phone] Rudolph Welch MD Unavailable Markie Ryan MD Unavailable Jimbo Strauss MD Unavailable [phone] Jaya Grier MD Unavailable Edgardo Kauffman MD Unavailable [phone] Nicolas Edwards RN Unavailable Reason for Visit * Reason Onset Date Comments Appointment Request 03/28/2025 Encounter Details Date Type Department Care Team ([facility] Contact Info) Description 03/28/2025 Telephone [facility] Medical [facility] Primary Care at [address] [phone] Cherelle Corcoran MD [facility] [address] [address] Appointment Request Social History Tobacco Use [...] In the past 12 months has e [employer], gas, oil, or water [employer] threatened to shut off services in your [...] attend chur ch or oriental orthodox services? 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 Visit Type: Established Patient What is the reason for the visit? ER visit What is the reason we were unable to schedule the appointment? Current appointment availability didnot meet patient's need. Nest available is 05/26/25 If applicable, were all members of the patient's PCP care team offered (e.g., nurse practioner(s), physician teacher assistant(s)) ? N/A Additional Comments: Was seen at [facility] 03/27/25 for High BP and weakness. Her bp was 290/90 yesterday and dizzy. Seems to be SOB more when she walks or does anything. Does message need to be routed? Yes-Action Needed documented in this encounter Plan of Treatment Scheduled Procedures Name Priority Associated Diagnoses Date/Ti me COLONOSCOPY Iron deficiency anemia due to chronic blood loss documented as of this encounter Visit Diagnoses Not on filedocumented in this encounter Care Teams Port Crane Operator Relationship Specialty Start Date End Date Cherelle Corcoran MD PCP - General Family Medicine 08/30/19 Mark Queen MD Consulting Physician Infectious Diseases 01/10/20 Rudolph Welch MD [address] [place] [id number] Consulting Physician Infectious Diseases 12/05/22 Markie Ryan MD [address] [place] [address] Consulting Physician Nephrology 12/05/22 [place] [address] [place] [address] Consulting Physician Nephrology 10/22/23 Jaya Grier MD [address] [place] [address] Consulting Physician Gastroenterology 02/01/24 Edgardo Kauffman MD [address] [facility] [address] [place] [address] Surgeon Vascular Surgery 07/15/24 Nicolas Edwards, [facility] [address] [place] [address] [address] [place] [address] Power System Engineer 03/24/25 documented as of this encounter
--- OUTSIDE RECORDS SUMMARY | 2025-04-27 15:43 | XMS_ITS | Clinical Summary ---
Author Organization [facility] Address [address] [place] [id number] Care Team Providers Care Erp Developer Name Role Phone Cherelle Corcoran MD Primary Care Provider [phone] Social History Tobacco Use Types Packs/Day Years Used Date Smoking Tobacco: Never Assessed Comments Unknown Sex and Gender Information Value Date Recorded Sex Assigned at Not on file Legal Sex Female 1:41 PM CDT Gender Identity Not on file Sexual Orientation Not on file Plan of Treatment Health Maintenance Due Date Last Done Comments Colorectal Cancer Screening Colonoscopy (10 Years) 1950 Hepatitis C 1968 DTaP, Tdap and Td Vaccines (1 - Tdap) 1969 Zoster Vaccines (1 of 2) 2000 RSV Immunization or 60+ Years (1 - Risk 60-74 years 1-dose series) 2010 Annual Medicare Wellness Visit 10/29/2015 PHQ-2 (Physician [place]) 06/22/2024 COVID-19 Vaccine ( - season) 2025 06/11/2021, 10/13/2020, 09/22/2020 Influenza Adult (#1) 2025 04/06/2019, 04/17/20 17 Mammogram Screening 01/21/2026 01/22/2024, 09/25/2022, 01/08/2021, Additional history exists Pneumococcal Vaccine: 50+ Years Completed 01/20/2019, 03/31/2017 Dexa Scan (General) Completed 01/22/2024, 01/22/2024, 01/08/2021 Hepatitis A Vaccines Aged Out No long er eligible based on patient's age to complete this topic Meningococcal B Vaccine Aged Out No l onger eligible based on patient's age to complete this topic Meningococcal Vaccine Aged Out No khang frances eligible based on patient's age to complete this topic RSV Immunizations Under 20 Months Aged Out No longer eligible based on patient's age to complete this topic Insurance MEDICARE MEDICAID Care Teams Erp Developer Relationship Specialty Start Date End Date Cherelle Corcoran MD [address] [place] [id number] PCP - General FAMILY PRACTICE 09/27/19
--- OUTSIDE RECORDS SUMMARY | 2025-04-27 15:43 | XMS_ITS | Clinical Summary ---
Author Organization [facility] Address [address], [address] [address] Phone Care Team Providers Care Records Management Manager Name Role Phone Cherelle Corcoran MD [...] Screening 1950 TdaP Immunization 1950 Cologuard 10/29/1995 Respiratory Syncytial Virus (RSV) Immunization (Adult) (1 - Risk 50-74 years 1-dose series) 2000 Zoster Immunization (1 of 2) 2000 Medicare Initial AWV [id number] 02/19/2010 Mammogram 11/07/2016 11/08/2015 Immunochemical Fecal Occult Blood [...] - 144 mmol/L 03/11/2019 11:10 AM CDT [facility] POTASSIUM 4.8 3.5 - 5.1 mmol/L 03/11/2019 11:10 AM CDT [facility] CHLORIDE 96(L) 100 - 110 mmol/L 03/11/2019 11:10 AM CDT [facility] CO2, VENOUS 28 22 - 32 mmol/L 03/11/2019 11:10 AM CDT [facility] ANION GAP 17.8 8.0 - 20.0 mmol/L 03/11/2019 11:10 AM CDT [facility] GLUCOSE 216(H) 70 - 99 mg/dL 03/11/2019 11:10 AM CDT [facility] BUN 22 8 - 23 mg/dL 03/11/2019 11:10 AM [facility] CREATININE, BLOOD 0.66 0.60 - 1.10 mg/dL 03/11/2019 11:10 AM [facility] BUN/CREATININE RATIO 33(H) 12 - 20 ratio 03/11/2019 11:10 AM [facility] TOTAL PROTEIN 8.4(H) 6.0 - 8.3 g/dL 03/11/2019 11:10 AM [facility] ALBUMIN 4.3 3.5 - 5.2 g/dL 03/11/2019 11:10 AM [facility] Comment: The colormetric methods used for the determination of Albumin may lead to falsely elevated test results in patients suffering from renal failure or insufficiency due to interference with other proteins. A/G RATIO 1.0 1.0 - 2.0 03/11/2019 11:10 AM [facility] CALCIUM 10.4(H) 8.9 - 10.3 mg/dL 03/11/2019 11:10 AM [facility] T BILI 0.3 <=1.2 mg/dL 03/11/2019 11:10 AM [facility] SGOT (AST) 19 <=32 U/L 03/11/2019 11:10 AM [facility] Comment: Hemolysis present: results may be falsely elevated. SGPT (ALT) 14 <=33 U/L 03/11/2019 11:10 AM [facility] ALKALINE PHOSPHATASE 123(H) 35 - 105 U/L 03/11/2019 11:10 AM [facility] GFR, EST. NONAFRICAN >60 >=60 03/11/2019 11:10 AM [facility] GFR, EST. >60 >=60 019 11:10 AM [facility] Comment: Creatinine Clearance is the preferred criteria for selecting drug dose adjustments in renally impaired patients. The GFR is provided as additional pertinent clinical information. GFR is reported in mL/min/1.73 sq m. Blood specimen (specimen) Venous Catheter (IV) / Unknown 03/11/2019 10:23 AM CDT 03/11/2019 10:46 AM CDT us Ronald Haro MD CHEMISTRY ORDERABLES Final Result Performing Organization Address [facility] Co de Phone Number [facility] [place] [address] * (ABNORMAL) POCT GLYCOSYLATED HEMOGLOBIN (01/20/2019 9:44 [...] ORDERAB LES Final Result Performing Organization Address [facility] Co de Phone Number [facility] [place] [address] * CHERYL SCREENING BILATERAL DIGITAL W CAD [...] measures to stabilize the patient. Care Teams Records Management Manager Relationship Specialty Start Date End Date Cherelle Corcoran MD [address] [place] [id number] PCP - General Family Medicine 02/12/24 Sim López MD [address] [place] [phone] Consulting Physician Oncology 02/12/24
--- OUTSIDE RECORDS SUMMARY | 2025-04-27 15:43 | XMS_ITS | Clinical Summary ---
Author Organization [facility] Address [address] [place] [address] Care Team Providers Care Data Conversion Operator Name Role Phone Cherelle Corcoran MD Primary Care Pro vider QueenMark Perez MD Unavailable [phone] Rudolph Welch MD Unavailable Markie Ryan MD Unavailable Jimbo Strauss MD Unavailable [phone] Jaya Grier MD Unavailable Edgardo Kauffman MD Unavailable [phone] Nicolas Edwards RN Unavailable Allergies No known [...] polyneuropathy associated with type 2 diabetes mellitus ([facility]) TAKE 1 CAPSULE BY MOUTH 3 TIMES PER WEEK AFTER HEMODIALYSIS 40 capsule 1 2023 Active atorvastatin (LIPITOR) 20 mg tablet Take 1 tablet (20 mg total) by mouth nightly 2023 Active blood-glucose sensor (FreeStyle Madhav 3 Plus Sensor) deviceIndication s:Type 2 diabetes mellitus with diabetic nephropathy, with long-term current use of insulin ([facility]) Use to continually monitor glucose, [...] of insulin ([facility]) Inject 4 units SQ before [...] 6.25 mg tabletIndication s:Hypertension associated with diabetes ([facility]) Take 1 tablet (6.25 mg total) by mouth 2 (two) times a day with meals 180 tablet 11/29 Active aspirin 81 mg chewable tablet CHEW AND SWALLOW 1 TABLET(81 MG) BY MOUTH DAILY 90 tablet 1 2024 Active lidocain-me.sali azt-cqug-ecpkb 4-20-0.025-5 % adhesive patch,medicated Apply 1 patch [...] each 1 2024 Active FreeStyle Madhav 3 [place] misc Use as directed to monitor blood [...] diabetes m ellitus 07/07/2024 Assessment & Plan (02/27/2025 11:36 AM CDT): on atorvastatin Assessment & Plan (10/24/2024 11:30 AM CDT): Preivously discussed ok to restart atorvastatin, but also given overall health status reasonable to continue holding, especially if had side effects with restarting Assessment & Plan (07/14/2024 2:30 PM HARVESTING CONTRACTOR): Continue Lipitor Assessment & Plan (07/14/2024 8:56 AM HARVESTING CONTRACTOR): Ok to restart atorvastatin, but also given [...] 10/30/2023 Assessment & Plan (05/06/2024 7:49 AM HARVESTING CONTRACTOR): Reviewed hospital discharge summary Now resolved Upcoming [...] stable Assessment & Plan (07/24/2023 1:51 PM HARVESTING CONTRACTOR): Chronic/stable Parkinsonism 08/14/2022 Assessment & Plan (02/27/2025 11:37 AM CDT): Following with neurology Assessment & Plan (10/24/2024 10:57 AM CDT): Following with neurology Assessment & Plan (07/14/2024 8:54 AM HARVESTING CONTRACTOR): Following with neurology, recommend reaching out to them in regards to restarting benztropine. Consider waiting until after restarts other medications given daughter reports tremors controlled off benztropine currently Assessment & Plan (11/10/2023 4:43 PM CDT): Following with neurology On cogentin Assessment & Plan (07/24/2023 1:50 PM HARVESTING CONTRACTOR): Following with neurology On cogentin twice a day Assessment & Plan (01/23/2023 9:20 AM CDT): Following with neurology On cogentin twice a day Assessment & Plan (10/10/2022 10:41 AM CDT): Following with neurology On cogentin Assessment & Plan (08/14/2022 10:46 AM HARVESTING CONTRACTOR): Following with neurology, reviewed note On cogentin [...] - PT/OT recommends SNF. -Plan [facility] on 11/26 ? Assessment & Plan (11/24/2021 2:07 PM CDT): Deconditioning 2/2 prolonged hospitalization. Daughter reports that prior to her illness, she was independent with a walker. - PT/OT recommends SNF. -Plan [facility] SNF on 11/25. Assessment & Plan (11/23/2021 12:24 PM CDT): Deconditioning 2/2 prolonged hospitalization. Daughter reports that prior to her illness, she was independent with a walker. - PT/OT recommends SNF. -Plan [facility], SNF on 11/25. Assessment & Plan (11/22/2021 1:34 PM CDT): Deconditioning 2/2 prolonged hospitalization. Daughter reports that prior to her illness, she was independent with a walker. - PT/OT recommends SNF. -Plan [facility] SNF on 11/25. Assessment & Plan (11/21/2021 [...] care Assessment & Plan (08/14/2022 10:47 AM HARVESTING CONTRACTOR): Following with podiatry Assessment & Plan (04/02/2022 [...] renal consulted regarding volume management, possible senior living dialysis planning, expedite OP f/u. Serologies and urine studies ordered. ED neg, compliments neg, cryoglobulin pending, ANCA pending, HIV neg. Continued -Added metolazone 2.5mg/daily per renal 09/13- with improving swelling, Cr bump to 2.33 so held further -Transitioned to PO agents prior to DC (09/17) with ongoing clinical improvement. Goal weight 155lbs -Home with family at [place], application infrastructure engineer consulted to review salt restrictions. -outpatient BMP, [...] renal consulted regarding volume management, possible terminal [facility] dialysis planning, expedite OP f/u. Serologies and urine studies ordered. ED neg, compliments neg, cryoglobulin pending, ANCA pending, HIV neg. Continued -Added metolazone 2.5mg/daily per renal 09/13- with improving swelling, Cr bump to 2.33 so held further -Anticipate likely transition to PO agents prior to DC (?09/17) with ongoing clinical improvement. Goal weight 155lbs -Home with family at [place], application infrastructure engineer consulted to review salt restrictions. Assessment & [...] renal consulted regarding volume management, possible senior living dialysis planning, expedite OP f/u. Serologies and urine studies ordered. -Added metolazone 2.5mg/daily per renal. -Anticipate likely transition to PO agents prior to DC with ongoing clinical improvement. Goal weight 145-150lbs -Home with family at [place], application infrastructure engineer consulted to review salt restrictions. Assessment & [...] renal consulted regarding volume management, possible terminal [facility] dialysis planning, expedite OP f/u. Serologies and [...] renal consulted regarding volume management, possible terminal [facility] dialysis planning, expedite OP f/u. Serologies and [...] renal consulted regarding volume management, possible senior living dialysis planning, expedite OP f/u. Assessment & [...] neg 1/2-1L/day. -consider renal consult regarding senior living dialysis planning, expedite OP f/u. Assessment & [...] neg 1/2-1L/day. -consider renal consult regarding senior living dialysis planning. Assessment & Plan (09/06/2021 10:28 [...] neurology Assessment & Plan (07/14/2024 8:53 AM HARVESTING CONTRACTOR): Following with neurology Assessment & Plan (01/05/2024 10:40 PM CDT): Follows with neurology. -continue risperidone 2mg QHS -continue benztropine 2mg daily Assessment & Plan (11/10/2023 4:37 PM CDT): Following with neurology Assessment & Plan (07/24/2023 1:50 PM HARVESTING CONTRACTOR): Following with neurology Assessment & Plan (01/23/2023 9:18 AM CDT): Following with neurology Assessment & Plan (10/10/2022 10:37 AM CDT): Following with neurology, ordered MRI, # given to son to schedule Assessment & Plan (06/09/2022 3:37 PM HARVESTING CONTRACTOR): Needs to reschedule with neurology Looking into group home, but declined for [facility] for schizoaffective disorder Assessment & [...] needed Assessment & Plan (06/09/2022 3:37 PM HARVESTING CONTRACTOR): Reviewed PM & PHQ Screening PHQ-2 Total [...] disorder, bipolar type 1 Assessment & Plan (02/27/2025 11:37 AM CDT): Following with psychiatry Assessment & Plan (10/24/2024 10:57 AM CDT): Following with psychiatry Assessment & Plan (08/18/2024 8:44 AM HARVESTING CONTRACTOR): Chronic, stable. Does not report any stephanie [...] discussed. Assessment & Plan (07/14/2024 8:54 AM HARVESTING CONTRACTOR): Following with psychiatry, recommend reaching out to [...] psychiatry Assessment & Plan (07/24/2023 1:50 PM HARVESTING CONTRACTOR): Following with psychiatry Assessment & Plan (01/23/2023 [...] discussed. Assessment & Plan (08/09/2021 5:42 AM HARVESTING CONTRACTOR): Following with psychiatry Assessment & Plan (08/07/2021 3:28 PM HARVESTING CONTRACTOR): Chronic condition, switch to Haldol and has had multiple different problems including acute kidney failure in infectious process. Records not available at outside hospital-[facility]. Confounded by delirium. Currently experiencing delirium will discontinue Haldol and return to Risperdal as previously taking. Risperdal was discontinued due to poorly-controlled diabetes. Monitor in 1 to 2 weeks. Assessment & Plan (07/03/2021 7:24 AM HARVESTING CONTRACTOR): Following with psychiatry D/c risperidone, started on haldol Assessment & Plan (07/01/2021 9:16 PM HARVESTING CONTRACTOR): Chronic, stable. +persistent auditory hallucinations Discontinue Risperdal [...] Reviewed all of those notes-primary care doctor, wildlife technician, director operating room. The patient previously lived on her own and was observed to be hoarding. See additional problems-dementia. Evaluate again in 1 month after starting Risperdal. Iron deficiency anemia 04/02/2020 Assessment & Plan (05/06/2024 7:51 AM HARVESTING CONTRACTOR): Recommend discussing IV iron with nephrology Assessment & Plan (10/02/2020 4:35 PM CDT): Continue iron Assessment & Plan (05/28/2020 1:51 PM HARVESTING CONTRACTOR): Iron levels recently normalized, but still anemic, [...] GI Assessment & Plan (07/14/2024 8:56 AM HARVESTING CONTRACTOR): Restart protonix Upcoming EGD Assessment & Plan (01/05/2024 10:40 PM CDT): -continue famotidine Assessment & Plan (10/02/2020 4:35 PM CDT): Continue omeprazole Assessment & Plan (07/24/2020 2:06 PM HARVESTING CONTRACTOR): Recurrent symptoms off omeprazole, restart Assessment & Plan (05/28/2020 1:51 PM HARVESTING CONTRACTOR): Iron levels recently normalized, but still anemic, repeat today Assessment & Plan (04/02/2020 1:26 PM CDT): Start PPI History of amputation of toe 01/19/2020 Assessment & Plan (01/08/2021 3:50 PM CDT): Stable Assessment & Plan (10/02/2020 4:35 PM CDT): Stable Assessment & Plan (04/30/2020 1:00 PM HARVESTING CONTRACTOR): Stable Assessment & Plan (02/14/2020 5:15 PM [...] controlled Assessment & Plan (07/14/2024 2:32 PM HARVESTING CONTRACTOR): Continue carvedilol, hydralazine Assessment & Plan (07/14/2024 8:51 AM HARVESTING CONTRACTOR): BP controlled today off medication Daughter reports nephrology said could restart medication, is planning to restart coreg first and monitor blood pressure prior to restarting nifedipine/hydralazine Assessment & Plan (05/06/2024 7:48 AM HARVESTING CONTRACTOR): BP controlled Continue nifedipine, hold prior to [...] x1 with HD. [facility] recent [facility] with initiation of hydralazine and nifedipine [...] amlodipine Assessment & Plan (08/03/2023 4:02 PM HARVESTING CONTRACTOR): BP uncontrolled Start 5mg amlodipine Assessment & Plan (07/24/2023 1:49 PM HARVESTING CONTRACTOR): Blood pressure borderline today off medications Assessment & Plan (01/23/2023 9:18 AM CDT): Blood pressure borderline low today, asymptomatic Checking labs Advised to decrease amlodipine to 5mg and monitor blood pressure Assessment & Plan (10/10/2022 10:50 AM CDT): Continue coreg 6.25mg twice a day & 40mg valsartan Assessment & Plan (08/14/2022 10:43 AM HARVESTING CONTRACTOR): Blood pressure at goal, continue coreg 6.25mg twice a day Assessment & Plan (06/09/2022 3:32 PM HARVESTING CONTRACTOR): Blood pressure at goal, continue coreg 3.125mg [...] day Assessment & Plan (08/05/2021 10:35 AM HARVESTING CONTRACTOR): Blood pressure at goal Increase amlodipine to 10mg & d/c hydralazine per cardiology Assessment & Plan (05/28/2021 4:59 PM HARVESTING CONTRACTOR): Blood pressure above goal, but previously within [...] lisinopril Assessment & Plan (08/28/2020 12:12 PM HARVESTING CONTRACTOR): Blood pressure at goal Continue lisinopril Assessment & Plan (07/24/2020 2:05 PM HARVESTING CONTRACTOR): Blood pressure at goal Continue lisinopril Assessment & Plan (05/28/2020 1:50 PM HARVESTING CONTRACTOR): BP borderline Continue 10mg lisinopril Continue to monitor Assessment & Plan (04/30/2020 12:32 PM HARVESTING CONTRACTOR): BP borderline Continue 10mg lisinopril Continue to [...] endocrine Assessment & Plan (07/14/2024 2:31 PM HARVESTING CONTRACTOR): Controlled. Continue as per Endocrine and PCP Assessment & Plan (07/14/2024 8:50 AM HARVESTING CONTRACTOR): Following with endocrine, reviewed note Holding insulin [...] +SSI Assessment & Plan (07/24/2023 1:49 PM HARVESTING CONTRACTOR): Lab Results Component Value Date HGBA1C 8.1 [...] trulicity Assessment & Plan (08/14/2022 10:42 AM HARVESTING CONTRACTOR): Following with endocrine Continue lantus, 12 units humalog TIDAC & 1.5mg trulicity Assessment & Plan (06/09/2022 3:32 PM HARVESTING CONTRACTOR): Following with endocrine Home blood sugar at [...] for strict med oversight by family at [place] reviewed with daughter this admit. Assessment & [...] for strict med oversight by family at [place] reviewed with daughter this admit. Assessment & [...] and nephropathy. Med oversight by family at [place]. Assessment & Plan (09/14/2021 12:22 PM CDT): [...] as she had discussed this with outpatient refinery pipeline operator - repeat A1c - resume home statin, not currently on feliciano due to kidney function Assessment & Plan (08/05/2021 10:35 AM HARVESTING CONTRACTOR): Continue 15 units lantus twice a day Assessment & Plan (07/03/2021 7:24 AM HARVESTING CONTRACTOR): Fasting blood sugar significantly improved Risperidone changed Continue current meds Continue to monitor Assessment & Plan (06/18/2021 11:22 AM HARVESTING CONTRACTOR): Increase lantus to 60 units nightly, if blood sugar still above goal after 1 week split into 33 units twice a day Follow up with blood sugar via portal in 2 weeks Continue jardiance 25mg Continue trulicity 4.5mg weekly Assessment & Plan (05/28/2021 4:58 PM HARVESTING CONTRACTOR): Increase lantus to 55 units nightly Continue [...] weekly Assessment & Plan (08/28/2020 1:00 PM HARVESTING CONTRACTOR): DM Care Plan: Meds: Lantus - continue [...] recheck Assessment & Plan (07/24/2020 2:05 PM HARVESTING CONTRACTOR): Formulary change 2/2 insurance, switched to trulicity. Will increase to 1.5mg Assessment & Plan (05/28/2020 1:50 PM HARVESTING CONTRACTOR): Check a1c Barbara isn't checking blood sugar regularly, but when she is she has several >200 so I lean towards increasing if a1c>7 Assessment & Plan (04/30/2020 12:31 PM HARVESTING CONTRACTOR): Blood sugar improved on 40 units basaglar [...] was in the room. Recently treated at [facility] for PNA with prolonged course [...] was in the room. Recently treated at [facility] for PNA with prolonged course [...] was in the room. Recently treated at [facility] for PNA with prolonged course [...] was in the room. Recently treated at [facility] for PNA with prolonged course [...] was in the room. Recently treated at [facility] for PNA with prolonged course [...] was in the room. Recently treated at [facility] for PNA with prolonged course [...] was in the room. Recently treated at [facility] for PNA with prolonged course [...] was in the room. Recently treated at [facility] for PNA with prolonged course [...] was in the room. Recently treated at [facility] for PNA with prolonged course [...] was in the room. Recently treated at [facility] for PNA with prolonged course [...] 11/10/2023 Assessment & Plan (08/14/2022 10:44 AM HARVESTING CONTRACTOR): Continue eliquis Assessment & Plan (06/09/2022 3:36 PM HARVESTING CONTRACTOR): Continue eliquis Assessment & Plan (04/02/2022 6:05 [...] 10/10/2022 Assessment & Plan (08/07/2021 3:30 PM HARVESTING CONTRACTOR): Subacute, persistent, hospitalized recently. She is alert [...] Impression: Patient recently had MRI performed at [facility] which revealed acute osteomyelitis to the [...] 08/28/2020 Assessment & Plan (05/28/2020 1:52 PM HARVESTING CONTRACTOR): Encouraged to follow up with wound clinic for reassessment Assessment & Plan (04/30/2020 12:31 PM HARVESTING CONTRACTOR): Following with wound clinic Assessment & Plan [...] acute osteomyelitis on recent MRI performed at [facility]. She is being treated with [...] nightly Assessment & Plan (08/14/2022 10:42 AM HARVESTING CONTRACTOR): Continue lyrica 150mg nightly Assessment & Plan (06/09/2022 3:32 PM HARVESTING CONTRACTOR): Continue lyrica 150mg nightly Assessment & Plan [...] status. Assessment & Plan (05/28/2021 4:58 PM HARVESTING CONTRACTOR): Continue lyrica 150mg nightly Assessment & Plan [...] gabapentin Assessment & Plan (08/28/2020 1:00 PM HARVESTING CONTRACTOR): On gabapentin Assessment & Plan (07/24/2020 2:05 PM HARVESTING CONTRACTOR): Continue gabapentin Assessment & Plan (04/02/2020 1:22 [...] Encounters Date Type Department Care Team Description 04/26/2025 Nurse Triage [facility] Primary Care at [address] [phone] Becky Law RN 04/11/2025 Telephone [facility] Primary Care at [address] [phone] Cherelle Corcoran MD 04/10/2025 Telephone [facility] Primary Care at [address] [phone] Cherelle Corcoran MD Appointment Request 04/06/2025 Telephone [facility] Primary Care at [address] [phone] Cherelle Corcoran MD 03/28/2025 Nurse Triage [facility] Primary Care at [address] [phone] Cherelle Corcoran MD 03/28/2025 Telephone [facility] Primary Care at [address] [place] [address] Cherelle Corcoran MD Appointment Request 03/13/2025 Letter (Out) [facility] Primary Care [address] [place] [address] [address] [place] [phone] 03/10/2025 Telephone [facility] Primary Care at [address] [place] [phone] Cherelle Corcoran MD Referral Request 03/08/2025 2:15 PM CDT Therapy [facility] Hand & Shoulder [address] [place] [address] [address] [place] [address] Roger Martinez, BROKE MAN Complete tear of left rotator cuff, unspecified whether traumatic (Primary Dx) 03/01/2025 Documentation [facility] OP Physical Therapy [address] [place] [address] [address] [place] [address] Roger Martinez, BROKE MAN No Show 02/27/2025 12:30 PM CDT [facility] [address] [place] [id number] Type 2 diabetes mellitus with diabetic neuropathy, with long-term current use of insulin ([facility]); Hypertension associated with diabetes ([facility]); Hyperlipidemia associated with type 2 diabetes mellitus ([facility]); Chronic diastolic congestive heart failure (HCC); ESRD (end stage renal disease) on dialysis ([facility]); Vitamin D deficiency 02/27/2025 12:12 PM CDT - 02/27/2025 11:59 PM CDT Hospital Encounter [facility] [address] DIAG IMG [address] [place] [id number] SOB (shortness of breath) Discharge Disposition: Discharge to home or self care 02/27/2025 11:15 AM CDT Office Visit [facility] Primary Care at [address] [phone] Cherelle Corcoran MD Chronic left shoulder pain [...] (end stage renal disease) on dialysis (HCC); Late onset Alzheimer's dementia without behavioral disturbance; Parkinsonism, unspecified Parkinsonism type (HCC); Schizoaffective disorder, bipolar type (HCC); Gastroesophageal reflux disease without esophagitis; Vitamin D deficiency; Frailty; Need for immunization against influenza 02/27/2025 Results Follow-Up [facility] Primary Care at [address] [phone] Cherelle Corcoran MD XR Chest PA Lateral 2 Views 02/27/2025 Telephone [facility] Primary Care at [address] [phone] Cherelle Corcoran MD Medical Question/Miscellaneous 02/23/2025 Plan of Care Documentation [facility] Hand [facility] Shoulder [address] [place] [phone] 02/22/2025 10:45 AM CDT Therapy [facility] Shoulder [address] [place] [address] Cesar Angeles, PT Complete tear of left rotator cuff, unspecified whether traumatic (Primary Dx) 01/26/2025 2:30 PM CDT Telemedicine [facility] [address] [place] [phone] Adryan Swenson MD Schizoaffective disorder, bipolar type (HCC) (Primary Dx); Involuntary movements from Last 3 Months Immunizations Immunization Administration [...] Shurn Relation Name Status Comments Brother 1 Imsael Alive Brother 2 Maria E Spivey Alive Brother 3 Brother 4 Ruddy Mylene Brother 5 Adryan Chakraborty Alive Daughter Honey Alive Father Damien Chakraborty Mother Lizbeth Chakraborty Alive Other Magi Alive Sister 1 Valentine Spivey Alive Sister 2 Valentine Luis Sister 3 Morenita Breanna Social History Tobacco Use Types Packs/Day Years [...] doctor or pharmacy Often 01/20/2024 [facility] Utilities Answer Date Recorded In the past 12 months has [employer], [employer], oil, or water [employer] threatened to shut off services in your home? Yes 11/07/2024 Social Connection and Isolation Panel Answer Date Recorded In a typical week, how many times do you talk on the phone with family, friends, or neighbors? Patient unable to answer 11/07/2024 How often do you get togethe r with friends or relatives? Patient unable to answer 11/07/2024 How often do you attend [facility] or buddhism services? Patient unable to answer 11/07/2024 Do [...] any time in the past 12 m [facility], were you homeless or living [...] on file Legal Sex Female 9:03 AM HARVESTING CONTRACTOR Gender Identity Female 02/08/2020 6:39 PM CDT [...] 01/22/2024, 09/25/2022, Additional history exists Covid-19 Vaccine (2024-2 6 season) 2025 06/11/2021, 10/13/2020, 09/22/2020 Hemoglobin A1C 05/04/2025 11/01/2024, 03/0 08/2024, 05/16/2024, Additional history exists Well Visit 65+ 10/24/2025 10/24/2024, 10/21, 06/09/2022, Additional history exists Lipid Panel 11/01/2025 11/01/2024, 04/23, 10/30/2023, Additional history exists Fall Risk Assessment 11/05/2025 11/05/2024, 10/24/2024, 11/10/2023, Additional history exists eGFR 11/25/2025 11/25/2024, 07/2024, 11/14/2024, Additional history exists Dilated Eye [...] 03/01/2024, Colon Cancer Screening-Sigmoidoscopy Discontinued 03/01/2024, 04/01/2017 Hepatitis B Screening Completed 03/10/2024 , 01/07/2024, 12/10/2023, Additional history exists Pneumococcal vaccine 65+ Completed 024, 01/20/2019, 03/31/2017 Influenza Vaccine Completed 02/27/2025, , 08/07/2022, Additional history exists Medical Devices Implanted Type Area Harm Reduction Worker Device Identifier Shelf Expiration Date Model / Serial / Lot Activity Rocket Dur[employer] Vascpak Safesheath D-Pro 15.5fr 24cm Kit Catheter [id number] - [id number] Implanted:Qty: 1 on 10/15/2023 at [facility] Activity Rocket 10/19/2025 [id number] 85 / / [id number] [employer] Duraflow Embosafe 15.5fr 24cm Basic 2 Lumen Kit Catheter [id number] - [id number] Implanted:Qty: 1 on 07/15/2024 by Edgardo Kauffman MD at [facility] 08/19/2026 [id number] 15 / / [id number] Procedures Procedure Name Priority Date/Time Associated Diagnosis [...] Rafaela Paulino M.D. TW: TW Report ID: [id number] Reading Location: [id number] Procedure Note Rafaela Paulino MD - 02/27/2025 [...] Rafaela Paulino M.D. TW: TW Report ID: [id number] Reading Location: [id number] Cherelle Corcoran MD IMG XR PROCEDURES Final Result * (ABNORMAL) DIABETES EYE EXAM (01/20/2025 11:51 AM CDT) SCRIBED HM DIABETIC DILATED EYE EXAM Abnormal Historical Provider [...] was last reviewed 2021. Testing performed by: [facility] [address] [place] [address]., [address] Blood 11/25/2024 12:5 8 PM CDT 11/25/2024 2:12 PM CDT us Notinfile Unknown LAB BLOOD ORDERABLES Final Res ult NILSA RODRIGES [address] [facility] [place] [address] * (ABNORMAL) Hemoglobin A1c (11/01/2024 10:05 PM CDT) Hgb A1C 7.1(H) 4.0 - 5.6 % Estimated Average Glucose 157 mg/dL NILSA RODRIGES Comment: The ADA recommends reporting an estimated Average Glucose (eAG) with all Hemoglobin A1c results using the equation derived from a study of 507 normal and diabetic adults. Minority populations were underrepresented and children were not included. (Diabetes Care 31:2419-6395, 2008). The eAG is not equivalent to a fasting glucose. Blood 11/01/2024 10:0 5 PM CDT 11/01/2024 10:15 PM CDT us Brad Sebastien Smallwood IMPLEMENTATION ANALYST LAB BLOOD ORDERABLES Fin al Result NILSA [address] [facility] Department [place] [address] * (ABNORMAL) Lipid panel (11/01/2024 10:05 PM [...] 11/01/2024 10:15 PM CDT us Brad Sebastien Rufin IMPLEMENTATION ANALYST LAB BLOOD ORDERABLES Fin al Result NILSA [address] [facility] [place] [facility] Department [place] [address] * Colonoscopy (03/01/2024 8:49 AM CDT) Anatomical Region Laterality Modality Other Narrative Procedure Note Jaya Grier MD - 03/01/2024 8:49 AM CDT [facility] GI ENDOSCOPY Patient Name: Barbara Chakraborty Procedure Date: 03/01/2024 8:49 AM Date of : 1950 Admit Type: Outpatient Age: 73 Gender: Female Attending MD: Jaya Grier M.D. Room: [facility] ENDOSCOPY ROOM 06 Note Status: Finalized [...] The scope was passed under direct vision.The [id number] colonoscope was introduced through theanus and advanced [...] On: 03/01/2024 8:49 AM Recognized by the [employer] Gastrointestinal [...] taking vitamin-D. History of end-stage renal disease. Harm Reduction Worker/Model: [employer] A (S/N [id number]) CLINICAL INFORMATION: Current height: 61 inches Maximum [...] Rafaela Paulino M.D. TW: TW Report ID: [id number] Reading Location: [id number] Procedure Note Rafaela Paulino MD - 01/22/2024 EXAM DESCRIPTION: DEXA AXIAL SKELETON BONE DENSITY 1 OR MORE SITES REASON FOR STUDY: 73 y/o year old F with given history of: Post menopausal status. History of taking vitamin-D. History of end-stagerenal disease. Harm Reduction Worker/Model: [employer] A (S/N [id number]) CLINICAL INFORMATION: Current height: 61 inches Maximum [...] Rafaela Paulino M.D. TW: FAIZAN Report ID: [id number] Reading Location: [id number] Cherelle MERIDA DXA PROCEDURE S Final Result * Screening [...] finding in either breast on mammogram. Cherelle MERIDA MAMMO PROCEDU RES Final Result * Hepatitis [...] Jimbo Strauss MD LAB MICROBIOLOGY - GENERAL ORDFlo [facility] Final Result NILSA [address] [place] [address] * (ABNORMAL) Albumin Creatinine Ratio, Urine (10/10/2022 11:39 AM CDT) Albumin Ur 3,240.2 mg/L NILSA Comment: Interpretive Data No reference range established. Current interpretive data was last revised 2018. Testing performed by: [address] [address] Creatinine Ur 74.8 mg/dL NILSA Comment: Interpretive Data No reference range established. Current interpretive data was last revised 2018. Testing performed by: [address] [address] Albumin Creatinine Ratio, Ur 4,332(H) 1 - 29 mg/g NILSA Comment:Testing performed by : [address] [place] [address] Urine 10/10/2022 11:3 9 AM CDT 10/10/2022 1:45 PM CDT us Markie Ryan MD LAB URINE ORDERABLES Final Re sult NILSA [facility] Department [place] [address] from Last 3 Months or Most Recently Relevant to Health Maintenance Insurance MEDICARE MEDICARE [facility] MEDICARE IDPA MEDICARE IDPA Advance Directives For more information, please contact: [phone] Documents on File Type Date Recorded Patient Certified Cytotechnologist Expl anation ADVANCE DIRECTIVE 07/15/2024 7:58 AM Power of Pharmaceutical Representative-Medical ADVANCE DIRECTIVE 02/02/2024 12:34 PM Erik r of Pharmaceutical Representative-Medical * Full Code (Latest Code Status on [...] Gayle Daughter Health Care Agent Care Teams Data Conversion Operator Relationship Specialty Start Date End Date Cherelle Corcoran MD PCP - General Family Medicine 08/30/19 Mark Queen MD Consulting Physician Infectious Diseases 01/10/20 Rudolph Welch MD [address] [facility] [place] [address] Consulting Physician Infectious Diseases 12/05/22 Markie Ryan MD [address] [facility] [facility] [address] [place] [address] Consulting Physician Nephrology 12/05/22 [place] [address] [facility] [address] [place] [address] Consulting Physician Nephrology 10/22/23 Jaya Grier MD [address] [facility] [address] [place] [address] Consulting Physician Gastroenterology 02/01/24 Edgardo Kauffman MD [address] [facility] [address] [facility] [address] [place] [address] Surgeon Vascular Surgery 07/15/24 Nicolas Edwards, ALIREZA [address] [place] [address] [address] [place] [address] Imaging Assistant 03/24/25
--- OUTSIDE RECORDS SUMMARY | 2025-04-27 15:43 | XMS_ITS ---
Author Organization [facility] Care Team Providers Care Rod And Tube Straightener Name Role Phone Brittney Hutchins Unavailable Unavailable Bone, Nick Unavailable Unavailable Ampadu, Demetri Unavailable Unavailable Rohith, Kj Unavailable Unavailable Allergies and adverse reactions No Known Allergies Care Team Name Role Address Phone Organization Dates Demetri Ampadu PCP [address] [place], [address], [place] (Office): : [facility] 08/22/2021 - 09/04/2021 Brittney Hutchins [address], [place], [address], [place] (Office): : [facility] [place] 08/22/2021 - 09/04/2021 Nick Bone [address], [place], [address], [place]Office): : [facility] [place] 08/22/2021 - 09/04/2021 Kj Newberry [place] (Office): : : [facility] [place] 08/22/2021 - 09/04/2021 Mental Status Section Date Assessment Total Score Description 09/04/2021 CAM 0 No delirium ind icated 08/29/2021 BIMS 12 moderate cognit amanda impairment CAM 0 No delirium ind icated PHQ-9 05 mild depression Insurance Providers Problems Problem # Description Date of onset Resolved Date Code CodeSystem Concern Status 1 ANEMIA, UNSPECIFIED 08/22/[address] active 2 CHRONIC KIDNEY DISEASE, UNSPECIFIED 08/22/[address] active 3 ESSENTIAL (PRIMARY) HYPERTENSION 08/22/[address] active 4 HISTORY OF FALLING 08/22/[address] active 5 HYPERLIPIDEMIA, UNSPECIFIED 08/22/[address] active 6 RETENTION OF URINE, UNSPECIFIED 08/22/[address] active 7 SCHIZOPHRENIA, UNSPECIFIED 08/22/[address] active 8 TYPE 2 DIABETES MELLITUS WITH DIABETIC NEUROPATHY, UNSPECIFIED 08/22/[address] active 9 TYPE 2 DIABETES MELLITUS WITHOUT COMPLICATIONS 08/22/[address] active 10 UNSPECIFIED DEMENTIA, UNSPECIFIED SEVERITY, WITHOUT BEHAVIORAL DISTURBANCE, PSYCHOTIC DISTURBANCE, MOOD DISTURBANCE, AND ANXIETY 08/22/[address] active 11 UNSPECIFIED OSTEOARTHRITIS, UNSPECIFIED SITE 08/22/[address] active 12 UNSTEADINESS ON FEET 08/22/[address] active 13 WEAKNESS 08/22/[address] active Reason for Referral No Reasons for Referral Entered Social History Social History Observation Description Start Date End Date Code Code System Current Smoking Status Tobacco smoking consumption unknown 932707737 SNOMED CT Sex Assigned At Female 1950 25633-6 LOINC Gender Identity Female 52015911528716 [address] Sexual Orientation Vital Signs Code Code System Vitals Name Values and Units Timing Information 2339-0 LOINC Blood Sugar Value=1.0 Units=mg/dL 9279-1 LOINC Respiratory Rate Value=18.0 Units=/m in 09/04/2021 99479-5 [facility] O2 % BldC Oximetry Value=97.0 Units= % 09/04/2021 8462-4 [facility] Blood Pressure-Diastolic Value=78 Un its=mmHg 09/04/2021 8480-6 [facility] Blood Pressure-Systolic Pefpw=330 Un its=mmHg 09/04/2021 8310-5 [facility] Body Temperature Value=98.9 Units= F 09/04/2021 8867-4 [facility] Heart rate Value=70.0 Units=/min 19416-0 [facility] Pain Level Value=0.0 09/04/2021 09996-5 [facility] Weight Kcwnp=839.0 Units=Lbs 12/2021
--- OUTSIDE RECORDS SUMMARY | 2025-04-27 15:43 | XMS_ITS ---
Author Organization [facility] Care Team Providers Care Fitness Instructor Name Role Phone Demetri Roy Unavailable Unavailable Allergies and adverse reactions No Known Allergies Care Team Name Role Address Phone Organization Dates Demetri Roy PCP [address] [place], [address], [place] (Office): : : [facility] 08/15/2021 - 08/22/2021 Mental Status Section Date Assessment Total Score Description 08/22/2021 BIMS 13 cognitively int act CAM 0 No delirium ind icated PHQ-9 12 moderate depres jannette 08/21/2021 BIMS 13 cognitively int act CAM 0 No delirium ind icated PHQ-9 12 moderate depres jannette Insurance Providers Problems Problem # Description Date of onset Resolved Date Code CodeSystem Concern Status 1 ALZHEIMER'S DISEASE 2 08/15/[address] completed 2 GASTRO-ESOPHAGEAL REFLUX DISEASE WITHOUT ESOPHAGITIS 2 08/15/[address] completed 3 IRON DEFICIENCY ANEMIA 2 08/15/[address] completed 4 OTHER HYPERLIPIDEMIA 2 08/15/[address] completed 5 SCHIZOAFFECTIVE DISORDER, BIPOLAR TYPE [address] active 6 SCHIZOAFFECTIVE DISORDER, BIPOLAR TYPE 2 08/15/[address] completed 7 ALZHEIMER'S DISEASE [address] active 8 ALZHEIMER'S DISEASE, UNSPECIFIED [address] active 9 ANEMIA, UNSPECIFIED [address] active 10 COVID-[address] active 11 ESSENTIAL (PRIMARY) HYPERTENSION [address] active 12 GASTRO-ESOPHAGEAL REFLUX DISEASE WITHOUT ESOPHAGITIS [address] active 13 IRON DEFICIENCY ANEMIA [address] active 14 OTHER HYPERLIPIDEMIA [address] active [address] active 16 TYPE 2 DIABETES MELLITUS WITH DIABETIC NEUROPATHY, UNSPECIFIED [address] active Reason for Referral No Reasons for Referral Entered Social History Social History Observation Description Start Date End Date Code Code System Current Smoking Status Tobacco smoking consumption unknown 011201755 SNOMED CT Sex Assigned At Female 1950 [address]-8 [facility] Gender Identity Sexual Orientation Vital Signs Code Code System Vitals Name Values and Units Timing Information 8462-4 [facility] Blood Pressure-Diastolic Value=68 Un its=mmHg 08/22/2021 8480-6 [facility] Blood Pressure-Systolic Tqbbv=964 Un its=mmHg 08/22/2021 9279-1 [facility] Respiratory Rate Value=20.0 Units=/m in 08/22/2021 8310-5 [facility] Body Temperature Value=97.8 Units= F 08/22/2021 8867-4 [facility] Heart rate Value=86.0 Units=/min 08/2021 2339-0 [facility] Blood Sugar Bmgoa=314.0 Units=mg/dL 08/22/2021 16228-0 INC Pain Level Value=0.0 08/22/2021 39203-6 [facility] O2 % BldC Oximetry Value=96.0 Units= % 08/21/2021 47012-2 LOINC Weight Pxaan=968.1 Units=Lbs
--- OUTSIDE RECORDS SUMMARY | 2025-04-27 15:43 | XMS_ITS | Encounter Summary ---
Author Organization [facility] Healthcare Address [address] [place] [address] Care Team Providers Care Pie Filler Name Role Phone Cherelle Corcoran MD Primary Care Pro vider Mark Queen MD Unavailable [phone] Xenia Padilla LPN Unavailable Sarahy Schmidt PERSONAL BANKING REPRESENTATIVE Unavailable Brandie Callejas MA Unavailable Unav ailable Xenia Padilla LPN Unavailable [phone] Samples, Melania Joel RN Unavailable Anam Costa LCSW Unavailable Unavailabl e Samples, Melania Joel RN Unavailable Rudolph Welch MD Unavailable Markie Ryan MD Unavailable Nadege Ramírez RN Unavailable Dulce Vega RN Unavailable Jimbo Strauss MD Unavailable [phone] Jaya Grier MD Unavailable Edgardo Kauffman MD Unavailable [phone] Macrina Mike RN Unavailable Nicolas Edwards RN Unavailable [phone] Encounter Details Date Type Department Care Team (Late st Contact Info) Description 12/26/2019 Telephone [facility] Nutrition and Diabetic Education 1 [facility] [place] [address] Anastasia Leblanc, RN Social History Tobacco Use Types Packs/Day Years Used Date Smoking Tobacco: Never Smokeless Tobacco: Never Alcohol Use Standard Drinks/Week Comments Not Currently 0 (1 standard drink = 0.6 oz pur e alcohol) PHQ-2 Answer Date Recorded PHQ-2 Score 0 08/30/2019 Comments No Sex and Gender Information Value Date Recorded Sex Assigned at Not on file Legal Sex Female 9:03 AM CATTLE SORTER Gender Identity Female 02/08/2020 6:39 PM CDT Sexual Orientation Not on file documented as of this encounter Functional Status documented as of this encounter Plan of [...] CDT COVID19 08/13/2021 08/13/2021 08/24/2021 3:05 AM CATTLE SORTER COVID: Recovered Comment:Added based on recent COVID infection. 08/24/2021 08/26/2021 12/22/2021 3:05 AM C DT COVID: Suspected Comment:11/15/2021 pt is covid recovered 11/15/2021 11/15/2021 11/15/2021 3:32 PM C DT COVID: Suspected 11/15/2021 11/16/2021 11/16/2021 1:45 AM CDT Human metapneumovirus, conta ct + droplet 11/16/2021 11/16/2021 11/30/2021 3:05 AM C DT COVID: Suspected 05/08/2022 05/08/2022 05/08/2022 4:26 PM CATTLE SORTER COVID: Suspected 06/19/2022 06/19/2022 06/19/2022 12:37 PM CATTLE SORTER COVID: Suspected 08/01/2022 08/01/2022 08/01/2022 2:28 PM CATTLE SORTER COVID: Suspected 10/02/2022 10/02/2022 10/02/2022 8:14 PM CDT MRSA Comment:Toe 11/08/22, 12/12/22 11/08/2022 12/12/2022 06/10/2023 3:05 AM CATTLE SORTER COVID: Suspected 12/08/2022 12/08/2022 12/08/2022 8:17 PM CDT COVID: Suspected 07/27/2023 07/27/2023 07/28/2023 12:57 AM CATTLE SORTER COVID: Suspected 10/29/2023 10/30/2023 10/30/2023 10:59 AM CDT 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 12/19/2023 12/19/2023 3:58 PM CDT 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 12/29/2023 06/26/2024 3:05 AM CATTLE SORTER COVID: Suspected 04/19/2024 04/19/2024 04/20/2024 12:44 AM CDT COVID: Suspected 07/12/2024 07/12/2024 07/12/2024 12:39 PM CATTLE SORTER COVID: Suspected 07/31/2024 07/31/2024 07/31/2024 2:06 PM CATTLE SORTER documented as of this encounter Care Teams Pie Filler Relationship Specialty Start Date End Date Cherelle Corcoran MD PCP - General Family Medicine 08/30/19 Mark Queen MD Consulting Physician Infectious Diseases 01/10/20 Xenia Padilla LPN Information Systems Coordinator 09/19/21 09/19/21 Sarahy Schmidt LPN [address] [place] [address] [address] [place] [address] ACO Care Corporate Human Resources Manager 11/27/21 12/25/21 Brandie Callejas MA Patient Optometrist 06/20/22 06/22/22 Xenia Padilla LPN [address] [place] [address] [address] [place] [address] Information Systems Coordinator 06/24/22 06/24/22 Samples, Melania Joel RN [address] [place] [address] [address] [place] [address] Information Systems Coordinator 07/22/22 08/21/22 Anam Costa LCSW [address] [place] [address] [address] [place] [address] Display Card Writer 08/08/22 02/18/23 Samples, Melania Joel RN [address] [place] [address] [address] [place] [address] Information Systems Coordinator 08/22/22 12/07/22 Rudolph Welch MD [address] [facility] [address] [place] [address] Consulting Physician Infectious Diseases 12/05/22 Markie Ryan MD [address] [facility] [address] [place] [address] Consulting Physician Nephrology 12/05/22 Nadege Ramírez RN [address] [place] [address] [address] [place] [address] Information Systems Coordinator 01/20/23 02/23/23 Dulce Vega RN [address] [place] [address] [address] [place] [address] Information Systems Coordinator 10/07/23 05/03/24 [place] [address] [facility] [address] [place] [address] Consulting Physician Nephrology 10/22/23 Jaya Grier MD [address] [facility] [address] [place] [address] Consulting Physician Gastroenterology 02/01/24 Edgardo Kauffman MD [address] [facility] [address] [facility] [address] [place] [address] Surgeon Vascular Surgery 07/15/24 Macrina Mike RN [address] [place] [address] [address] [place] [address] Information Systems Coordinator 11/07/24 11/30/24 Nicolas Edwards RN [address] [place] [address] [address] [place] [address] Information Systems Coordinator 03/24/25 documented as of this encounter
--- OUTSIDE RECORDS SUMMARY | 2025-04-27 15:43 | XMS_ITS | Encounter Summary ---
Author Organization [facility] Healthcare Address [address] [place] [address] Care Team Providers Care Stone Crusher Operator Name Role Phone Cherelle Corcoran MD Primary Care Pro vider Mark Queen MD Unavailable [phone] Rudolph Welch MD Unavailable Markie Ryan MD Unavailable Jimbo Strauss MD Unavailable [phone] Jaya Grier MD Unavailable Edgardo Kauffman MD Unavailable Nicolas Edwards RN Unavailable Encounter Details Date Type Department Care Team (Late st Contact Info) Description 02/27/2025 Results Follow-Up [facility] Primary Care at [address] [place] [address] Cherelle Corcoran MD [facility] [address] [address] XR Chest PA Lateral 2 [...] No 01/20/2024 OASIS B1300: Health Literacy Answer Fuentse e Recorded Frequency of needing help to read materials from doctor or pharmacy Often 01/20/[address] [facility] Utilities Answer Date Recorded In the past 12 months has e femeninas, gas, oil, or water [employer] threatened to shut off services in your [...] you attend chur ch or sabianist services? Patient unable to answer [...] in a fpc (including now)? No 10/30/2023 PHQ-9 Answer Date [...] any time in the past 12 m [facility], were you homeless or living in a fpc (including now)? No 11/07/2024 Personal Safety Answer Date Recorded Have you ever been in or are you currently in a harmful physical or emotional relationship or is someone making you feel afraid or unsafe? Denies 11/01/2024 Comments No Sex and Gender Information Value Date Recorded Sex Assigned at Not on file Legal Sex Female 9:03 AM WRAPPER SIZER Gender Identity Female 02/08/2020 6:39 PM CDT Sexual Orientation Not on file documented as of this encounter Functional Status * BP Location Answer Date of Assessment Author Left arm 02/27/2025 11:12 AM CDT Katina Rojas MA * BP Location Answer Date of Assessment Author Left arm 02/27/2025 11:12 AM CDT Katina Rojas MA documented as of this encounter Plan of Treatment Scheduled Procedures Name Priority Associated Diagnoses Date/Ti me COLONOSCOPY Iron deficiency anemia due to chronic blood loss documented as of this encounter Visit Diagnoses Not on filedocumented in this encounter Care Teams Stone Crusher Operator Relationship Specialty Start Date End Date Cherelle Corcoran MD PCP - General Family Medicine 08/30/19 Mark Queen MD Consulting Physician Infectious Diseases 01/10/20 Rudolph Welch MD [address] [facility] [address] [place] [address] Consulting Physician Infectious Diseases 12/05/22 Markie Ryan MD [address] [facility] [address] [place] [address] Consulting Physician Nephrology 12/05/22 [place] [address] [address] Consulting Physician Nephrology 10/22/23 Jaya Grier MD [address] [facility] [address] [place] [address] Consulting Physician Gastroenterology 02/01/24 Edgardo Kauffman MD [address] [facility] [address] [facility] [address] [place] [address] Surgeon Vascular Surgery 07/15/24 Nicolas Edwards, RN [address] [facility] [address] [place] [address] Etl Programmer 03/24/25 documented as of this encounter
--- OUTSIDE RECORDS SUMMARY | 2025-04-27 15:43 | XMS_ITS | Encounter Summary ---
Author Organization [facility] Address [address] [place] [address] Phone Care Team Providers Care Examination Proctor Name Role Phone Cherelle Corcoran MD Primary Care Pro vider QueenMark Perez MD Unavailable [phone] Brandie Callejas MA Unavailable Unav ailable Xenia Padilla LPN Unavailable [phone] Samples, Melania Joel RN Unavailable Anam Costa LCSW Unavailable Unavailabl e Samples, Melania Joel RN Unavailable Rudolph Welch MD Unavailable [phone] Markie Ryan MD Unavailable Nadege Ramírez RN Unavailable [phone] Dulce Vega RN Unavailable Jimbo Strauss MD Unavailable [phone] Jaya Grier MD Unavailable Edgardo Kauffman MD Unavailable [phone] Macrina Mike RN Unavailable Nicolas Edwards RN Unavailable Encounter Details Date Type Department Care Team (Late st Contact Info) Description 12/30/2021 Telephone [facility] Medicine Endocrinology Metabolism and Lipid [address] [facility] 5th [place] [address] [place] [address] Rachael Smith CMA Social History Tobacco Use [...] week 09/10/2021 How often do you attend [facility] ch or zoroastrianism services? Never 09/10/2021 Do [...] on file Legal Sex Female 9:03 AM SMOKE CONTROL SUPERVISOR Gender Identity Female 02/08/2020 6:39 PM CDT Sexual Orientation Not on file documented as of this encounter Functional Status * BP Location Answer Date of Assessment Author Right arm 01/02/2022 1:12 PM CDT Brigid Keenan RN * BP Location Answer Date of Assessment Author Right arm 01/02/2022 1:12 PM CDT Brigid Keenan, ALIREZA documented as of this encounter Plan of Treatment Scheduled Procedures Name Priority Associated Diagnoses Date/Ti me COLONOSCOPY Iron deficiency anemia due to chronic blood loss documented as of this encounter Visit Diagnoses Not on filedocumented in this encounter Additional Health Concerns Infection Onset Date Last Indicated Resolved Time COVID: Suspected 05/08/2022 05/08/2022 05/08/2022 4:26 PM SMOKE CONTROL SUPERVISOR COVID: Suspected 06/19/2022 06/19/2022 06/19/2022 12:37 PM SMOKE CONTROL SUPERVISOR COVID: Suspected 08/01/2022 08/01/2022 08/01/2022 2:28 PM SMOKE CONTROL SUPERVISOR COVID: Suspected 10/02/2022 10/02/2022 10/02/2022 8:14 PM CDT MRSA Comment:Toe 5/20/23, 12/12/22 11/08/2022 12/12/2022 06/10/2023 3:05 AM SMOKE CONTROL SUPERVISOR COVID: Suspected 12/08/2022 12/08/2022 12/08/2022 8:17 PM CDT COVID: Suspected 07/27/2023 07/27/2023 07/28/2023 12:57 AM SMOKE CONTROL SUPERVISOR COVID: Suspected 10/29/2023 10/30/2023 10/30/2023 10:59 AM CDT 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 12/19/2023 12/19/2023 3:58 PM CDT 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 12/29/2023 06/26/2024 3:05 AM SMOKE CONTROL SUPERVISOR COVID: Suspected 04/19/2024 04/19/2024 04/20/2024 12:44 AM CDT COVID: Suspected 07/12/2024 07/12/2024 07/12/2024 12:39 PM SMOKE CONTROL SUPERVISOR COVID: Suspected 07/31/2024 07/31/2024 07/31/2024 2:06 PM SMOKE CONTROL SUPERVISOR documented as of this encounter Care Teams Examination Proctor Relationship Specialty Start Date End Date Cherelle Corcoran MD PCP - General Family Medicine 08/30/19 Mark Queen MD Consulting Physician Infectious Diseases 01/10/20 Brandie Callejas MA Patient Owner Oral Surgeon 06/20/22 06/22/22 Xenia Padilla LPN [address] [facility] [address] [place] [address] Equipment Oiler 06/24/22 06/24/22 Melania Lee RN [address] [facility] [address] [place] [address] Equipment Oiler 07/22/22 08/21/22 Anam Costa LCSW [address] [place] [address] [address] [place] [address] Electric Meter Repairer Helper 08/08/22 02/18/23 Melania Lee RN [address] [place] [address] [address] [place] [address] Equipment Oiler 08/22/22 12/07/22 Rudolph Welch MD [address] [facility] [address] [place] [address] Consulting Physician Infectious Diseases 12/05/22 Markie Ryan MD [address] [facility] [address] [place] [address] Consulting Physician Nephrology 12/05/22 Nadege Ramírez RN [address] [place] [address] [address] [place] [address] Equipment Oiler 01/20/23 02/23/23 Dulce Vega RN [address] [place] [address] [address] [place] [address] Equipment Oiler 10/07/23 05/03/24 [place] [address] [facility] [address] [place] [address] Consulting Physician Nephrology 10/22/23 Jaya Grier MD [address] [facility] [address] [place] [address] Consulting Physician Gastroenterology 02/01/24 Edgardo Kauffman MD [address] [facility] [address] [facility] [address] [place] [address] Surgeon Vascular Surgery 07/15/24 Macrina Mike, ALIREZA [address] [place] [address] [address] [place], [place] [address] Equipment Oiler 11/07/24 11/30/24 Nicolas Edwards RN [address] [place] [address] [address] [place] [address] Equipment Oiler 03/24/25 documented as of this encounter
--- OUTSIDE RECORDS SUMMARY | 2025-04-27 15:43 | XMS_ITS | Encounter Summary ---
Author Organization [facility] Healthcare Address [address] [place] [address] Care Team Providers Care Template Maker Name Role Phone Cherelle Corcoran MD Primary Care Pro vider Mark Queen MD Unavailable [phone] Rudolph Welch MD Unavailable Markie Ryan MD Unavailable Jimbo Strauss MD Unavailable [phone] Jaya Grier MD Unavailable Edgardo Kauffman MD Unavailable [phone] Nicolas Edwards RN Unavailable Reason for Visit * Reason Onset Date Comments Shortness of Breath 03/26/2025 Encounter Details Date Type Department Care Team ([facility] Contact Info) Description 03/28/2025 Nurse Triage [facility] Medical Group Primary Care at [address] [place] [phone] Cherelle Corcoran MD [facility] [address] [place] [address] Social History Tobacco Use Types Packs/Day [...] In the past 12 months has e [employer], gas, oil, or water [employer] threatened to shut off services in your [...] you attend chur ch or jainism services? 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 * Telephone Encounter - Anshu Platt MA - 03/29/2025 3:59 PM CDT Called Daughter regarding note below from Nadege Galicia as is out of office. Daughter stated she is doing better; However, still weak due to dailysis yesterday. Soonest could book for appt, due to daughter and provider availability, was next Thursday. Appt booked. Daughter expressed understanding. Obtain ER notes and test results for review and offer appointment tomorrow for ER follow up. If weak, dizzy, shaky, temperature 100.4 or greater, HR greater than 90/minute, increase in shortness of breath from baseline, and/or blood pressure > or equal to 170/95, advise return to ER for furtherevaluation. * Telephone Encounter - Anshu Platt MA - 03/29/2025 1:41 PM CDT 03/27/25 [facility] ER notes scanned into chart. Submitted to Nadege for review as Dr. Corcoran is out of office. * Telephone Encounter - Anshu Platt MA - 03/29/2025 12:13 PM CDT PLEASE ADVISE: See prior note. * Telephone Encounter - Juju Zhang RN - 03/28/2025 12:29 PM CDT Reason for Conversation Shortness of Breath Background Pt is a 74 y/o female with a hx of HTN, DM2, ESRD and CHF. Spoke with pts daughter/EC Areli. Pt has been feeling SOB with exertion. Sx's are ongoing but worsening x 2-3 days. Areli states pt seems to pant at times. Dr Corcoran is aware and ordered a chest x-ray on 02-27-2025. Pt has a cough. Denies chest pain, wheezing and any cold sx's. Pt was taken to the ED yesterday after daycare called 911 as pts BP was 290/90. Pt was weak, dizzy and shaky. Areli states pt had labs and an EKG and results were negative. Pt was discharged. Pt is feeling better today. BP is 150's/40's. Pt remains SOB with exertion. Areli is requesting that pt be seen in the office. No availability soon enough to meet her needs.Please contact her at [phone]. Areli is afraid that the hospital may have missed something. Care advice given including rest, avoiding the heat and fluids as tolerated. Verbalized understanding and will call with worsening sx's. Disposition See Within 3 Days in Office Reason for Disposition MODERATE longstanding difficulty breathing (e.g., speaks in phrases, SOB even at rest, pulse 100-120) and SAME as normal Protocols Used Breathing [id number]-[id number] * Telephone Encounter - Juju Zhang RN - 03/28/2025 12:22 PM CDT Regarding: SOB, Weakness, high BP, Dizzy ----- Message from September sent at 03/28/2025 12:19 PM CDT ----- Symptom Based Call Chief Complaint(s): SOB, Weakness, high BP, Dizzy Duration: 2-3 days What type of symptom(s) is the patient experiencing? Red Flag. Is the patient concerned they are experiencing a medical emergency requiring an ambulance? No Additional Comments: Was seen at [facility] 03/27/25 for High BP and weakness. Her bp was 290/90 yesterday and dizzy. Seems to be SOB more when she walks or does anything. She has also been shaking a lot more. Was unsure why she was on the floor the other day before she went to the hospital.They felt like they went into the ER and was rushed out like they may have missed something. Does message need to be routed? Yes-Action Needed documented in this encounter Plan of Treatment Scheduled Procedures Name Priority Associated Diagnoses Date/Ti me COLONOSCOPY Iron deficiency anemia due to chronic blood loss documented as of this encounter Visit Diagnoses Not on filedocumented in this encounter Care Teams Template Maker Relationship Specialty Start Date End Date Cherelle Corcoran MD PCP - General Family Medicine 08/30/19 Mark Queen MD Consulting Physician Infectious Diseases 01/10/20 Rudolph Welch MD [address] [facility] [address] [place] [address] Consulting Physician Infectious Diseases 12/05/22 Markie Ryan MD [address] [facility] [address] [place] [address] Consulting Physician Nephrology 12/05/22 [place] [address] [address] Consulting Physician Nephrology 10/22/23 Jaya Grier MD [address] [facility] [address] [place] [address] Consulting Physician Gastroenterology 02/01/24 Edgardo Kauffman MD [address] [facility] [address] [facility] [address] [place] [address] Surgeon Vascular Surgery 07/15/24 Nicolas Edwards RN [address] [place] [address] [address] [place] [address] Accounts Receivable Administrator 03/24/25 documented as of this encounter
--- OUTSIDE RECORDS SUMMARY | 2025-04-27 15:43 | XMS_ITS | Encounter Summary ---
Author Organization [facility] Healthcare Address [address] [place] [address] Care Team Providers Care Site Leader Name Role Phone Cherelle Corcoran MD Primary Care Pro vider Mark Queen MD Unavailable [phone] Rudolph Welch MD Unavailable Markie Ryan MD Unavailable [phone] Jimbo Strauss MD Unavailable [phone] Jaya Grier MD Unavailable Edgardo Kauffman MD Unavailable [phone] Nicolas Edwards RN Unavailable Reason for Visit * Reason Onset Date Comments No Contact Made 04/26/2025 Encounter Details Date Type Department Care Team (Late st Contact Info) Description 04/26/2025 Nurse Triage [facility] Medical Group Primary Care at [address] [place] [address] Becky Law RN Social History Tobacco Use Types Packs/Day [...] materials from doctor or pharmacy Often 01/20/2024 [facility] Utilities Answer Date Recorded In the past 12 months has th e [employer], gas, oil, or water [employer] threatened to shut off services in your home? Yes 11/07/2024 Social Connection and Isolation Panel Answer Date Recorded In a typical week, how many times do you talk on the phone with family, friends, or neighbors? Patient unable to answer 11/07/2024 How often do you get togethe r with friends or relatives? Patient unable to answer 11/07/2024 How often do you attend [facility] services? Patient unable to answer [...] any time in the past 12 m 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 As advised by RN, informed Areli that if pt is still having concerning symptoms such as weakness, confusion, leg pain, etc., she should go to theER. Advised her to call 911 if needed. Areli voiced understanding and said she would take her tonight. ING AID ASSEMBLY SUPERVISOR * Telephone Encounter - Becky Law RN - 04/26/2025 3:52 PM CST Reason for Conversation No Contact Made Background Unable to reach after two attempts. LVM to return call with further questions or concerns. FYI forwarded to provider. Disposition No Contact Calls Reason for Disposition Second attempt to contact caller AND no contact made. Phone number verified. No Initial Assessment on file. No Additional Information on file. Protocols Used No Contact or Duplicate Contact [id number] ING AID ASSEMBLY SUPERVISOR * Telephone Encounter - Becky Law RN - 04/26/2025 1:06 PM CST Regarding: weakness, not feeling well, confusion, both leg pain (blood clot concern), Fall ----- Message from September sent at 04/26/2025 1:03 PM HEARING AID ASSEMBLY SUPERVISOR ----- Symptom Based Call Chief Complaint(s): weakness, not feeling well, confusion, both leg pain (blood clot concern), Fall Duration: few weeks What type of symptom(s) is the patient experiencing? Red Flag. Is the patient concerned they are experiencing a medical emergency requiring an ambulance? No Additional Comments: confusion, cloudy urine, weakness, pain in legs moderate to severe pain. Her daughter is also concerned about possible blood clots and a UTI. She fell in her room yesterday. Her knee was swollen. Unsure if she hit anything when she fell. 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 She will be available at 3:00 pm Does message need to be routed? Yes-Action Needed ING AID ASSEMBLY SUPERVISOR documented in this encounter Plan of Treatment Scheduled Procedures Name Priority Associated Diagnoses Date/Ti me COLONOSCOPY Iron deficiency anemia due to chronic blood loss documented as of this encounter Visit Diagnoses Not on filedocumented in this encounter Care Teams Site Leader Relationship Specialty Start Date End Date Cherelle Corcoran MD PCP - General Family Medicine 08/30/19 Mark Queen MD Consulting Physician Infectious Diseases 01/10/20 Rudolph Welch MD [address] [facility] [address] [place] [address] Consulting Physician Infectious Diseases 12/05/22 Markie Ryan MD [address] [facility] [address] [place] [address] Consulting Physician Nephrology 12/05/22 [place] [address] [facility] [address] [place] [address] Consulting Physician Nephrology 10/22/23 Jaya Grier MD [address] [facility] [address] [place] [address] Consulting Physician Gastroenterology 02/01/24 Edgardo Kauffman MD [address] [facility] [address] [place] [address] Surgeon Vascular Surgery 07/15/24 Nicolas Edwards, ALIREZA [address] [facility] [address] [place] [address] Headwaitress 03/24/25 documented as of this encounter
--- OUTSIDE RECORDS SUMMARY | 2025-04-27 15:51 | XMS_ITS ---
Author Organization [facility] Care Team Providers Care One Piece Expansion Maker Hand Name Role Phone Mark Canada Unavailable Unavailable Sarahy Tanner Unavailable Unavail able Allergies and adverse reactions No Known Allergies Care Team Name Role Address Phone Organization Dates Mark Canada PCP [address] [place], [place], [facility], [facility] (Office): : [facility] 10/22/2023 - 10/23/2023 Sarahy Tanner [address] , [place], [place], 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 10/22/[address] active 6 COGNITIVE COMMUNICATION DEFICIT 10/22/[address] active 7 DEPENDENCE ON RENAL DIALYSIS 10/22/[address] active 8 DISORIENTATION, UNSPECIFIED 10/22/[address] active 9 END STAGE RENAL DISEASE 10/22/[address] active 10 ESSENTIAL (PRIMARY) HYPERTENSION 10/22/[address] active 11 FRONTAL LOBE AND EXECUTIVE FUNCTION DEFICIT 10/22/[address] active 12 GASTRO-ESOPHAGEAL REFLUX DISEASE WITHOUT ESOPHAGITIS 10/22/[address] active 13 IRON DEFICIENCY ANEMIA SECONDARY TO BLOOD LOSS (CHRONIC) 10/22/[address] active 14 OTHER ABNORMALITIES OF GAIT AND MOBILITY 10/22/[address] active 15 PARKINSON'S DISEASE WITH DYSKINESIA, WITH FLUCTUATIONS 10/22/[address] active 16 SCHIZOAFFECTIVE DISORDER, BIPOLAR TYPE 10/22/[address] active 17 TYPE 2 DIABETES MELLITUS WITH DIABETIC AUTONOMIC (POLY)NEUROPATHY 10/22/[address] active 18 UNSPECIFIED COMBINED SYSTOLIC (CONGESTIVE) AND DIASTOLIC (CONGESTIVE) HEART FAILURE 10/22/[address] active 19 WEAKNESS 10/22/[address] active Reason for Referral No Reasons for Referral Entered Social History Social History Observation Description Start Date End Date Code Code System Current Smoking Status Tobacco smoking consumption unknown 540231617 SNOMED CT Sex Assigned At Female 1950 70577-7 [facility] Gender Identity Female [id number] [address] Sexual Orientation Vital Signs Code Code System Vitals Name Values and Units Timing Information 43272-0 [facility] Pain Level Value=0.0 10/24/2023 38785-0 [facility] O2 % BldC Oximetry Value=98.0 Units= % 10/24/2023 06238-6 [facility] Weight Ztssv=611.3 Units=Lbs 08/2023 8302-2 [facility] Height Value=62.0 Units=Inches 10/23/2023 9279-1 [facility] Respiratory Rate Value=14.0 Units=/m in 10/23/2023 8462-4 [facility] Blood Pressure-Diastolic Value=62 Un its=mmHg 10/23/2023 8480-6 [facility] Blood Pressure-Systolic Vamrj=694 Un its=mmHg 10/23/2023 8310-5 [facility] Body Temperature Value=97.5 Units= F 10/23/2023 8867-4 [facility] Heart rate Value=66.0 Units=/min 08/2023
--- OUTSIDE RECORDS SUMMARY | 2025-04-27 15:51 | XMS_ITS ---
Author Organization [facility] Care Team Providers Care Radiologic Therapist Name Role Phone Demetri Roy Unavailable Unavailable Allergies and adverse reactions No Known Allergies Care Team Name Role Address Phone Organization Dates Demetri Roy PCP [address] [place], [address], [place] (Office): : : [facility] [...] Concern Status 1 ALZHEIMER'S DISEASE 2 08/15/[address] completed 2 GASTRO-ESOPHAGEAL REFLUX DISEASE WITHOUT ESOPHAGITIS 2 08/15/[address] completed 3 IRON DEFICIENCY ANEMIA 2 08/15/[address] completed 4 OTHER HYPERLIPIDEMIA 2 08/15/[address] completed 5 SCHIZOAFFECTIVE DISORDER, BIPOLAR TYPE [address] active 6 SCHIZOAFFECTIVE DISORDER, BIPOLAR TYPE 2 08/15/[address] completed 7 ALZHEIMER'S DISEASE [address] active 8 ALZHEIMER'S DISEASE, UNSPECIFIED [address] active 9 ANEMIA, UNSPECIFIED [address] active 10 COVID-[address] active 11 ESSENTIAL (PRIMARY) HYPERTENSION [address] active 12 GASTRO-ESOPHAGEAL REFLUX DISEASE WITHOUT ESOPHAGITIS [address] active 13 IRON DEFICIENCY ANEMIA [address] active 14 OTHER HYPERLIPIDEMIA [address] active [address]ENIA [address] active 16 TYPE 2 DIABETES MELLITUS WITH DIABETIC NEUROPATHY, UNSPECIFIED [address] active Reason for Referral No Reasons for Referral Entered Social History Social History Observation Description Start Date End Date Code Code System Current Smoking Status Tobacco smoking consumption unknown 916403766 SNOMED CT Sex Assigned At Female 1950 67598-1 [facility] Gender Identity Sexual Orientation Vital Signs Code Code System Vitals Name Values and Units Timing Information 8462-4 [facility] Blood Pressure-Diastolic Value=68 Un its=mmHg 08/22/2021 8480-6 [facility] Blood Pressure-Systolic Cqrer=341 Un its=mmHg 08/22/2021 9279-1 [facility] Respiratory Rate Value=20.0 Units=/m in 08/22/2021 8310-5 [facility] Body Temperature Value=97.8 Units= F 08/22/2021 8867-4 [facility] Heart rate Value=86.0 Units=/min 08/2021 2339-0 [facility] Blood Sugar Gelia=885.0 Units=mg/dL 08/22/2021 70737-0 [facility] Pain Level Value=0.0 08/22/2021 80932-1 [facility] O2 % BldC Oximetry Value=96.0 Units= % 08/21/2021 44758-6 [facility] Weight Rnwtk=987.1 Units=Lbs
--- OUTSIDE RECORDS SUMMARY | 2025-04-27 15:51 | XMS_ITS ---
Author Organization [facility] Care Team Providers Care [employer] Professor Name Role Phone Brittney Hutchins Unavailable Unavailable Bone, Nick Unavailable Unavailable Ampadu, Demetri Unavailable Unavailable Rohith, Kj Unavailable Unavailable Allergies and adverse reactions No Known Allergies Care Team Name Role Address Phone Organization Dates Demetri Ampadu PCP [address] [place], [address], [place] (Office): : [facility] 08/22/2021 - 09/04/2021 Brittney Hutchins [address], [place], [address], [place] (Office): : [facility] 08/22/2021 - 09/04/2021 Nick Bone [address], [place], [address], [place] (Office): : [facility] 08/22/2021 - 09/04/2021 Kj Newberry [place] (Office): : : [facility] 08/22/2021 - 09/04/2021 Mental Status Section Date Assessment Total Score Description 09/04/2021 CAM 0 No delirium ind icated 08/29/2021 BIMS 12 moderate cognit amanda impairment CAM 0 No delirium ind icated PHQ-9 05 mild depression Insurance Providers Problems Problem # Description Date of onset Resolved Date Code CodeSystem Concern Status 1 ANEMIA, UNSPECIFIED 08/22/[address] active 2 CHRONIC KIDNEY DISEASE, UNSPECIFIED 08/22/[address] active 3 ESSENTIAL (PRIMARY) HYPERTENSION 08/22/[address] active 4 HISTORY OF FALLING 08/22/[address] active 5 HYPERLIPIDEMIA, UNSPECIFIED 08/22/[address] active 6 RETENTION OF URINE, UNSPECIFIED 08/22/[address] active 7 SCHIZOPHRENIA, UNSPECIFIED 08/22/[address] active 8 TYPE 2 DIABETES MELLITUS WITH DIABETIC NEUROPATHY, UNSPECIFIED 08/22/[address] active 9 TYPE 2 DIABETES MELLITUS WITHOUT COMPLICATIONS 08/22/[address] active 10 UNSPECIFIED DEMENTIA, UNSPECIFIED SEVERITY, WITHOUT BEHAVIORAL DISTURBANCE, PSYCHOTIC DISTURBANCE, MOOD DISTURBANCE, AND ANXIETY 08/22/[address] active 11 UNSPECIFIED OSTEOARTHRITIS, UNSPECIFIED SITE 08/22/[address] active 12 UNSTEADINESS ON FEET 08/22/[address] active 13 WEAKNESS 08/22/[address] active Reason for Referral No Reasons for Referral Entered Social History Social History Observation Description Start Date End Date Code Code System Current Smoking Status Tobacco smoking consumption unknown 433051060 SNOMED CT Sex Assigned At Female 1950 48759-5 LOINC Gender Identity Female [id number] [address] Sexual Orientation Vital Signs Code Code System Vitals Name Values and Units Timing Information 2339-0 LOINC Blood Sugar Value=1.0 Units=mg/dL 9279-1 LOINC Respiratory Rate Value=18.0 Units=/m in 09/04/2021 67665-9 [facility] O2 % BldC Oximetry Value=97.0 Units= % 09/04/2021 8462-4 [facility] Blood Pressure-Diastolic Value=78 Un its=mmHg 09/04/2021 8480-6 [facility] Blood Pressure-Systolic Jsyrr=027 Un its=mmHg 09/04/2021 8310-5 [facility] Body Temperature Value=98.9 Units= F 09/04/2021 8867-4 [facility] Heart rate Value=70.0 Units=/min 95790-9 [facility] Pain Level Value=0.0 09/04/2021 86764-7 [facility] Weight Tgsee=763.0 Units=Lbs 12/2021
== END 2025-04-27 05:01 | disposition home or self-care (01) ==
PROVIDERS: Emergency Provider Emergency Medicine; PCP Hospitalist
DX: N39.0 Urinary tract infection, site not specified (principal); Z20.822 Contact with and (suspected) exposure to COVID-19; F03.90 Unspecified dementia, unspecified severity, without behavioral disturbance, psychotic disturbance, mood disturbance, and anxiety; G20.A1 Parkinson's disease without dyskinesia, without mention of fluctuations; I50.30 Unspecified diastolic (congestive) heart failure; E11.22 Type 2 diabetes mellitus with diabetic chronic kidney disease; N18.6 End stage renal disease; E11.40 Type 2 diabetes mellitus with diabetic neuropathy, unspecified; D64.9 Anemia, unspecified; Z86.16 Personal history of COVID-19; Z96.1 Presence of intraocular lens; Z98.49 Cataract extraction status, unspecified eye; Z89.411 Acquired absence of right great toe; Z79.4 Long term (current) use of insulin; Z79.82 Long term (current) use of aspirin; Z79.899 Other long term (current) drug therapy; M51.369 Other intervertebral disc degeneration, lumbar region without mention of lumbar back pain or lower extremity pain; M48.061 Spinal stenosis, lumbar region without neurogenic claudication; M51.379 Other intervertebral disc degeneration, lumbosacral region without mention of lumbar back pain or lower extremity pain; M48.07 Spinal stenosis, lumbosacral region; R94.31 Abnormal electrocardiogram [ECG] [EKG]
CPT/HCPCS: 36415; 70450; 71045; 72125; 72131; 72170; 73562; 80053; 81001; 83690; 85025; 87086; 87637; 93005; 96365; 99284; J0696

== ENCOUNTER 2025-05-01 21:48 | Inpatient (IN) | payer MEDICARE, MEDICAID, SELFPAY ==
--- NOTE | ~2025-05-01 | XR_ITS ---
XR chest 1V portable INDICATION:syncopal episode . REFERENCE: None FINDINGS: A single AP of the chest demonstrates normal heart size. Right dialysis catheter terminates in the right atrium. The lungs are clear. There is no evidence of pneumothorax or pleural effusion. IMPRESSION: No acute pulmonary findings. Reviewed, dictated and finalized at location S. PROVIDER
--- NOTE | ~2025-05-01 | CT_ITS ---
CT HEAD NON-CONTRAST Clinical History: seizure activity Comparison: 04/27/2025 Technique: Unenhanced axial images skull base to vertex Coronal, sagittal reformats CT images acquired with automatic exposure control for dose reduction DLP: 1362 mGy-cm Findings: Chronic white matter microvascular ischemic changes. Right thalamic lacune Sulci, ventricles: Unremarkable. No intracerebral hemorrhage. No evidence acute territorial infarct. No mass effect, midline shift. Bony calvarium intact. Visualized paranasal sinuses: Clear. Mastoid air cells: Small fluid right side. IMPRESSION: 1. No acute intracranial findings. Reviewed, dictated and finalized at location R. ICIST
[2025-05-01 22:11] VITALS: TEMP 36.4
--- NOTE | 2025-05-01 22:14 | ECG_ITS ---
Test Date: 2025-05-01 22:41:50 Measurements Intervals [place] Rate: 85 P: 79 [place]: 163 QRS: 34 QRSD: 70 T: 72 QT: 391 QTc: 466 Interpretive Statements SINUS RHYTHM WITH SINUS ARRHYTHMIA Compared to ECG 04/26/2025 23:59:02 ST (T wave) deviation no longer present Electronically Signed On 05-02-2025 17:34:08 [employer] by La López M.D.
[2025-05-01 22:41] LABS: Hematocrit 30.1 % (37.0-47.0); Hemoglobin 9.4 g/dL (12.0-15.0); Immature Granulocyte Percent A 0.7 % (0-0.5); Lymphocytes Absolute Auto 1.97 K/mm3 (0.9-3.2); Mean Corpuscular HGB Conc 31.2 g/dl (32-36); Mean Corpuscular Hemoglobin 30.4 pg (26-34); Mean Corpuscular Volume 97.4 fl (80-100); Nucleated Red Blood Cells Absolute Auto 0.000 K/mm3 (0.0-0.012); Nucleated Red Blood Cells Perc 0.0 % (0.0-0.2); Platelet Count Result 231 k/mm3 (150-375); Red Blood Count 3.09 M/mm3 (4.2-5.4); White Blood Count 11.7 K/mm3 (4.5-10.0)
[2025-05-01 22:44] VITALS: BP 84/62; PULSE 65; RESP 16; TEMP 36.4; O2SAT 98
[2025-05-01 22:52] LABS: Alanine Aminotransferase 20 U/L (6-35); Albumin Level 4.3 g/dL (3.5-5.1); Alkaline Phosphatase 124 U/L (38-126); Anion Gap 13 mmol/L (4-12); Aspartate Amino Transferase 27 U/L (14-36); Bilirubin,Total 0.3 mg/dL (0.2-1.3); Blood Urea Nitrogen 37 mg/dL (7-17); Calcium 9.4 mg/dL (8.4-10.2); Carbon Dioxide 25 mmol/L (22-30); Chloride 97 mmol/L (98-107); Estimated CRCL calculation 10 ml/min; Estimated Glomerular Filt Rate 9; Glucose 191 mg/dL (65-110); Potassium 3.8 mmol/L (3.4-5.0); Sodium 135 mmol/L (137-145); Total Protein 8.0 g/dL (6.3-8.2)
--- NOTE | 2025-05-01 22:58 | ED.SEIZURE ---
HPI - Seizure General Chief Complaint: Seizure Stated Complaint: SZ-LIKE ACTIVITY Time Seen by Provider: 05/01/25 22:20 Source: family and EMS Mode of arrival: EMS Limitations: altered mental status History of Present Illness HPI Narrative: This is a 74-year-old female with history of end-stage renal disease on dialysis at home, diabetes, parkinsonism, dementia, schizophrenia who presents to the ED for seizure activity. Per family, patient was about an hour and a half into her regular dialysis when her blood pressure dropped to the 80s/50s so it was stopped and she was given 300 mL of fluid. After this, she had an episode of vomiting with a 2nd episode of vomiting after that had approximately 1-2 minute episode of seizure-like activity. She has not had this since being switched to home dialysis apparently did this previously. She is not on any medications for seizures. Family reports that she is at her baseline AAO x2 at this point. Related Data Home Medications ?Medication ?Instructions ?Recorded ?Confirmed ?Last Taken ?Type acetaminophen 325 mg tablet 650 mg PO Q6H PRN Pain 09/19/21 05/02/25 Unknown History insulin glargine 100 unit/mL (3 11 unit subcut HS 09/19/21 05/02/25 04/30/25 21:00 History mL) subcutaneous pen (Lantus 14 unit Solostar U-100 Insulin) insulin lispro 100 unit/mL 1 - 4 sliding scale dose subcut 09/19/21 05/02/25 05/01/25 16:00 History subcutaneous pen USEASDIRECTD 8 lidocaine 5 % topical patch 2 patch topical DAILY PRN Back Pain 09/19/21 05/02/25 04/30/25 16:00 History 1 patch aspirin 81 mg chewable tablet 81 mg PO DAILY 06/28/24 05/02/25 05/01/25 08:00 History 81 mg benztropine 2 mg tablet 2 mg PO HS 06/28/24 05/02/25 04/30/25 21:00 History 2 mg hydralazine 25 mg tablet 25 mg PO TID 06/28/24 05/02/25 05/01/25 08:00 History 25 mg pantoprazole 40 mg tablet,delayed 40 mg PO DAILY 06/28/24 05/02/25 05/01/25 08:00 History release 40 mg atorvastatin 20 mg tablet 20 mg PO QPM 11/09/24 05/02/25 04/30/25 21:00 History 20 mg carvedilol 6.25 mg tablet 6.25 mg PO Q12H 11/09/24 05/02/25 05/01/25 08:00 History 6.25 mg calcitriol 0.25 mcg capsule 0.25 mcg PO DAILY 05/02/25 05/02/25 05/01/25 08:00 History 0.25 mcg Allergies Allergy/AdvReac Type Severity Reaction Status Date / Time No Known Allergies Allergy Verified 05/02/25 04:27 [facility] Past Medical History Medical History Drug-induced Parkinson's disease Heart failure with preserved ejection fraction Insulin dependent diabetes mellitus Chronic kidney disease, stage 4 (severe) Creatinine ranges from 1.9 to 2.20. Venous thrombosis Anemia Hyperkalemia Dementia COVID (06/2021) Schizophrenia Diabetic neuropathy Surgical History Surgical History History of cataract extraction with lens replacement History of section Right great toe amputee Family History Family History Mother Diabetes mellitus Acute myocardial infarction Father Heart attack Cancer Sibling Diabetes mellitus Acute myocardial infarction Social History Social History Social History: The patient lives with her daughter and grand son in [place]. Lifelong nonsmoker. No alcohol or illicit substance abuse. She designates her daughter, Candelaria Gayle, as her surrogate decision maker. Code status: Full code. Smoking status: Former smoker Tobacco type: cigarettes Second hand tobacco smoke exposure: Yes Alcohol intake: never Substance use: never Substance use type: does not use Do You Feel Safe in your Home?: Yes Lack of Transportation: No Lack of Food: Never True Current Housing: I Have Housing Concerned About Future Housing: No Difficulty Paying Gas/Electric Bills: No Difficulty Paying for Meds: No Currently Unemployed: No Education: Master's Degree or Higher Difficulty w/ Childcare or Family Care: No Living arrangements: with family Spiritual care concerns: Yes Exam Narrative: APPEARANCE: No acute distress, nontoxic, resting in bed EYES: EOMI HEENT: Normocephalic, atraumatic, OMM RESPIRATORY: No respiratory distress Clear to auscultation bilaterally with no rhonchi wheezing or rales. CARDIOVASCULAR: Regular rate and rhythm without murmurs rubs or gallops. ABDOMINAL: Soft, nontender, nondistended, no rebound or guarding MUSCULOSKELETAl: Moves all extremities. No clubbing, cyanosis or edema. NEURO: Awake and alert x2. Following commands, speech normal, no focal deficits SKIN:: Warm, dry. No rashes lesions or abrasions PSYCHIATRIC: Normal affect/mood, Course Vital Signs Vital signs: Vital Signs Temperature 97.6 F 05/01/25 22:11 Temperature 97.5 F L 05/02/25 04:00 Pulse Rate 85 05/02/25 04:00 Respiratory Rate 18 05/02/25 04:00 Blood Pressure 176/65 H 05/02/25 04:00 Pulse Oximetry 100 05/02/25 04:00 Oxygen Delivery Room Air 05/02/25 02:34 MDM - Seizure MDM Narrative Medical decision making narrative: 74-year-old female Presenting for seizure activity. On initial evaluation patient was in no acute distress afebrile, hemodynamic stable. Differentials include but are not limited to: Seizure, hypotension, arrhythmia, electrolyte abnormality Notable exam findings: Heart and lungs clear. Abdomen soft and nontender. Nonfocal neuro findings. Baseline mental status Notable lab findings: Leukocytosis at 11.7. Anemia at 9.4 which is her baseline. Lactic acidosis of 4.9. CMP showed stable findings with her ESRD. UA not consistent with a UTI at this time. Notable imaging findings: CT head showed no acute process Patient's blood pressure had improved by the time she came to the ED. it is suspicious that the patient may have had a seizure given the lactic acidosis and the family's story. Patient was given 1500 mg Keppra. I discussed the case with Dr. Alonzo, neurology, agrees with Keppra load, recommends Keppra 750 mg b.i.d. and will see the patient as a consult. Discussed case with hospitalist, Dr. Owens will admit the patient but does recommend adding on blood cultures in the setting of lactic acidosis. Medical Records Attestation: I reviewed the patient's medical records. Lab Data Attestation: I reviewed the patient's lab results. 05/01/25 22:33 05/01/25 22:33 Labs: Lab Results 05/01/25 05/02/25 05/02/25 Range/Units 22:33 00:31 01:32 WBC 11.7 H (4.5-10.0) K/mm3 RBC 3.09 L (4.2-5.4) M/mm3 Hgb 9.4 L (12.0-15.0) g/dL Hct 30.1 L (37.0-47.0) % MCV 97.4 (80-100) fl MCH 30.4 (26-34) pg MCHC 31.2 L (32-36) g/dl RDW 14.2 (11.5-14.5) % Plt Count 231 (150-375) k/mm3 MPV 10.5 H (7.4-10.4) fl Immature Gran % (Auto) 0.7 H (0-0.5) % Neut % (Auto) 75.0 H (45.5-73.1) % Lymph % (Auto) 16.8 L (18.3-44.2) % [place] % (Auto) 6.2 (2.6-8.5) % Eos % (Auto) 1.0 (0-4.4) % Baso % (Auto) 0.3 (0.2-1.2) % Lymph # (Auto) 1.97 (0.9-3.2) K/mm3 [place]ley # (Auto) 0.7 H (0.1-0.6) K/mm3 Eos # (Auto) 0.1 (0-0.3) K/mm3 Baso # (Auto) 0.0 (0.0-0.1) K/mm3 Abs Immat Gran (auto) 0.08 H (0.00-0.031) K/mm3 Absolute Neuts (auto) 8.8 H (1.3-6.7) K/mm3 Absolute Nucleated RBC 0.000 (0.0-0.012) K/mm3 Nucleated RBC % 0.0 (0.0-0.2) % Sodium 135 L (137-145) mmol/L Potassium 3.8 (3.4-5.0) mmol/L Chloride 97 L (98-107) mmol/L Carbon Dioxide 25 (22-30) mmol/L Anion Gap 13 H (4-12) mmol/L BUN 37 H D (7-17) mg/dL Creatinine 4.76 H (0.7-1.0) mg/dL Estim Creat Clear Calc 10 ml/min Estimated GFR 9 L (59 - ) Glucose 191 H (65-110) mg/dL Lactic Acid 4.9 H* 2.6 H (0.7-2.0) mmol/L Calcium 9.4 (8.4-10.2) mg/dL Phosphorus 4.1 (2.5-4.5) mg/dL Magnesium 1.6 (1.6-2.3) mg/dL Total Bilirubin 0.3 (0.2-1.3) mg/dL AST 27 (14-36) U/L ALT 20 (6-35) U/L Alkaline Phosphatase 124 (38-126) U/L Total Protein 8.0 (6.3-8.2) g/dL Albumin 4.3 (3.5-5.1) g/dL Urine Color Yellow (Yellow) Urine Appearance Clear (Clear) Urine pH 6.0 (5.0-9.0) Ur Specific Mead 1.017 (1.001-1.035) Urine Protein 3+ H (Negative) mg/dL Urine Glucose (UA) 3+ H (Negative) mg/dL Urine Ketones Negative (Negative) mg/dL Ur Blood (Man) Negative (Negative) Urine Nitrate Negative (Negative) Urine Bilirubin Negative (Negative) Urine Urobilinogen 0.2 (<2.0) mg/dL Leukocyte Esterase Rfl 1+ H (Negative) RENEE/UL Urine RBC 0-2 (0-2) /hpf Urine WBC 21-50 H (0-3) /hpf Ur Squamous Epith Cells None seen (Few) /hpf Urine Bacteria None seen /hpf Urine Casts 3-5 Imaging Data Attestation: I personally reviewed and interpreted this imaging study as follows: Radiologist's impression: CT head: No acute intracranial abnormality Discharge Plan Discharge Clinical Impression: Seizure, ESRD (end stage renal disease) on dialysis Patient Disposition: Still a Patient Condition: Stable
[2025-05-01 23:00] VITALS: PULSE 82; RESP 24; O2SAT 98
[2025-05-01] MEDS: SODIUM CHLORIDE 0.9% IV 1,000 ML 999 ML IV CONT (23:38)
[2025-05-01] MEDS: levETIRAcetam 1500MG/NACL100ML 1,500 MG/100 ML BAG 400 MG IVPB (23:39)
[2025-05-02] VITALS (13 sets, daily range): BP systolic 119–189; BP diastolic 40–84; PULSE 71–91; RESP 12–20; TEMP 36.2–36.8; O2SAT 93–100; BMI 24.3
[2025-05-02 00:12] LABS: Magnesium 1.6 mg/dL (1.6-2.3)
[2025-05-02 00:49] LABS: Add Urine Microscopic? YES; Appearance Urine Clear (Clear); Glucose Urine UA 3+ mg/dL (Negative); Leukocyte Esterase Ur 1+ LEU/UL (Negative); Nitrate Urine Negative (Negative); Specific Grav Ur 1.017 (1.001-1.035)
[2025-05-02] MEDS: ONDANSETRON INJ 4 MG/2 ML VIAL IV PUSH (01:29)
--- NOTE | 2025-05-02 02:43 | WPCEDHO ---
ED Hand Off Checklist All vitals saved:yes IV Site documented:yes All med administrations documented:yes Triage Note Triage Note Pt to ED from home after family 05/01/25 22:11 reports pt had seizure like activity. Pt was taking nighttime meds when she vomited and then had seizure activity per daughter . Pt is A&Ox2 at baseline. Does home dialysis and has port to right chest. Pt denies any pain upon arrival. Allergies No Known Allergies Allergy (Verified 04/26/25 19:13) Family History (Last Reviewed 05/01/25 @ 23:00 by Darren Mosquera DO) Mother Diabetes mellitus Acute myocardial infarction Father Heart attack Cancer Sibling Diabetes mellitus Acute myocardial infarction Administered/Completed Medications Discontinued Medications Sodium Chloride (Normal Saline Iv) 1,000 mls @ 999 mls/hr IV CONT .Q1H1M STA Stop: 05/01/25 23:51 Last Admin: 05/01/25 23:38 Dose: 999 mls/hr Documented By: [facility]CO Levetiracetam (Keppra Iv) 1,500 mg in 100 mls @ 400 mls/hr IVPB ONCE STA Stop: 05/01/25 23:12 Last Infusion: 05/02/25 01:00 Dose: Infused Documented By: Admin: 05/01/25 23:39 Dose: 400 mls/hr Documented By: [facility]CO Ondansetron HCl (Ondansetron Inj 4 Mg/2 Ml Vial) 4 mg IV PUSH ONCE STA Stop: 05/02/25 00:13 Last Admin: 05/02/25 01:29 Dose: 4 mg Documented By: [facility] Interventions/Assessments IV / Saline Lock, Insert Start: 05/01/25 22:14 Freq: STAT Status: Active Protocol: Document 05/01/25 22:36 DERRELL (Rec: 05/01/25 22:36 DERRELL [id number]) IV Assessment Peripheral Access Left Antecubital IV Catheter Access Initiated IV Insertion Date 05/01/25 IV Insertion Time 22:36 Catheter Gauge 18 Ultrasound Used for Yes Placement IV Site Assessment WNL IV Care and WNL Maintenance Additional IV Dr. Mosquera placed line with u/s Comments PA: Neurological Assessment Start: 05/01/25 21:46 Freq: Status: Active Protocol: Document 05/01/25 22:45 DERRELL (Rec: 05/01/25 22:45 [facility] [id number]) Neurological Assessment Level of Awake Consciousness Arousable to Verbal Orientation Oriented to Person,Oriented to Place,Disoriented to Time Neurological Nausea/Vomiting,Seizure,Weakness, General Symptoms Hallucination Type None Unable to Redirect No Behavior Behavior Appropriate,Cooperative Patient Able to Comprehend Comprehension Memory Description Intact Ability to Maintain Unable to Assess Balance Facial Symmetry Symmetrical Last Vital Signs Temperature 97.6 F 05/01/25 22:44 Pulse Rate 88 05/02/25 02:30 Respiratory Rate 16 05/02/25 02:30 Pulse Oximetry 99 05/02/25 02:30 Blood Pressure 178/73 H 05/02/25 02:16 Blood Pressure Mean 99 05/02/25 02:16 Oxygen Delivery Room Air 05/02/25 02:34 Weight 79.8 kg 05/01/25 22:11 Last Result - Abnormals Only WBC 11.7 K/mm3 (4.5-10.0) H 05/01/25 22:33 RBC 3.09 M/mm3 (4.2-5.4) L 05/01/25 22:33 Hgb 9.4 g/dL (12.0-15.0) L 05/01/25 22:33 Hct 30.1 % (37.0-47.0) L 05/01/25 22:33 MCHC 31.2 g/dl (32-36) L 05/01/25 22:33 MPV 10.5 fl (7.4-10.4) H 05/01/25 22:33 Immature Gran % (Auto) 0.7 % (0-0.5) H 05/01/25 22:33 Neut % (Auto) 75.0 % (45.5-73.1) H 05/01/25 22:33 Lymph % (Auto) 16.8 % (18.3-44.2) L 05/01/25 22:33 [place] # (Auto) 0.7 K/mm3 (0.1-0.6) H 05/01/25 22:33 Abs Immat Gran (auto) 0.08 K/mm3 (0.00-0.031) H 05/01/25 22:33 Absolute Neuts (auto) 8.8 K/mm3 (1.3-6.7) H 05/01/25 22:33 Sodium 135 mmol/L (137-145) L 05/01/25 22:33 Chloride 97 mmol/L (98-107) L 05/01/25 22:33 Anion Gap 13 mmol/L (4-12) H 05/01/25 22:33 BUN 37 mg/dL (7-17) H D 05/01/25 22:33 Creatinine 4.76 mg/dL (0.7-1.0) H 05/01/25 22:33 Estimated GFR 9 (59-) L 05/01/25 22:33 Glucose 191 mg/dL (65-110) H 05/01/25 22:33 Lactic Acid 2.6 mmol/L (0.7-2.0) H 05/02/25 01:32 Urine Protein 3+ mg/dL (Negative) H 05/02/25 00:31 Urine Glucose (UA) 3+ mg/dL (Negative) H 05/02/25 00:31 Leukocyte Esterase Rfl 1+ RENEE/UL (Negative) H 05/02/25 00:31 Urine WBC 21-50 /hpf (0-3) H 05/02/25 00:31 Most Recent Suicide Severity Rating Suicide Severity Rating NO RISK INDICATED 05/01/25 22:11
--- NOTE | 2025-05-02 02:51 | PC.NURSE ---
This RN called pt daughter and gave update on pt status.
--- NOTE | 2025-05-02 04:07 | ADMGEN ---
This patient, Barbara Chakraborty, was admitted to 3 Med Surg Room 323-02. Received report from ALIREZA Tineo in ER @0245. Pt arrived to unit @0300.Patient oriented to hospital policies and general routines including ID bracelet, bed and alarms, visiting hours, pain management, procedures, bathroom and other care routines, personal items, smoking policy, room service/diet, and visiting hours. Information on how to activate the Rapid Response Team has been discussed. Patient are encouraged to report perceived risks to care and to ask questions if they do not understand what they are told or what they should do.
--- NOTE | 2025-05-02 05:51 | PC.NURSE ---
Pt A&Ox1-2 with confusion noted. Reoriented PRN. Unable to follow all commands/answer questions appropriately. Spoke with Pt daughter who is listed as Pt surrogate to confirm/verify medication list and Pt normal baseline. Pt daughter states that Pt is usually A&Ox2-3, able to voice needs and answer questions appropriately. Usually ambulates with no assistive devices but does own a walker. Pt has a history of falls which has seemed to become more frequent accompanied by a shuffled gait. Pt has a Madhav 3 glucose monitor noted to posterior RUE. Receives hemodialysis every other day.Pt currently resting in bed with HOB elevated, seizure pads in place, Bed alarm on, & Call light within reach.
--- NOTE | 2025-05-02 07:24 | PM.IMHP ---
H&P: HPI History of Present Illness Date/Time: 05/02/25 07:24 Chief Complaint: seizure like activity Narrative: 74 year old female with diabetes, ESRD on HD //thu, Parkinson's, diabetes, HFpEF, dementia, anemia, and schizophrenia presents to the hospital for seizure like activity. Patient is a poor historian Patient states she had not been feeling well for some time. She does not further elaborate on why she has not been feeling well and states she does not remember anything from yesterday in regards to events following dialysis. She currently denies any chest pain, palpitations, shortness of breath, nausea/vomiting and abdominal pain. Returned to patients room to discussed patient with her daughter/JOCELYN Vincent. Per daughter the patient was receiving her home HD dialysis when she developed hypotension into the 80s systolic. She then received IV fluids for the hypotension however the patient started vomiting immediately after. She then had another episode of vomiting before becoming extremely rigid with shaking extremities and her eyes rolling into the back of her head. The daughter said that her mothers dentures started falling out at that time and she lost control of her bowel and bladder. She then had a period of confusion that seems to be ongoing per daughter. Daughter notes that patient is Aox2 at baseline but typically more talkative, able to hold a conversation. She states that her mother had a similar seizure like episode about 1 year ago while receiving dialysis, however she was never started on antiseizure medications. She notes that her mother was recently diagnosed with a UTI in the ED and discharged on antibiotics which she has been taking. She denies her mother endorsing any UTI like symptoms. Urine culture at that time was negative, will continue to hold antibiotic at this time pending new cultures. She also notes that her mother had a recent fall about 2 weeks ago that was unwitnessed. Her mother typically ambulates throughout the house using a walker. She has been endorsing increased leg and low back pain prior to the fall. Discussed plan of care and code status with patient and her daughter, both wish for her to remain full code. All questions and concerns were answered. ED workup: CBC with WBC 11.7, H/H 9.4/30.1 and PLT 231. CMP with Na 135, K 3.8, BUN/Cr 37/4.76 with GFR 9. Glucose 191. Lactic acid 4.9. Mag, calcium, and phos WNL. LFTs unremarkable. UA and CXR nonconcerning for infection. Head CT showed no acute intracranial findings. Patient was given a loading dose of 1500 mg Keppra in the ED. ED provider discussed the case with Dr. Alonzo, neurology, who agreed with Keppra load, recommends Keppra 750 mg b.i.d. and will see the patient as a consult. Review of Systems Review of Systems: All systems reviewed & are unremarkable except as noted in HPI and below PMFSH Past Medical History Medical History Drug-induced Parkinson's disease Heart failure with preserved ejection fraction Insulin dependent diabetes mellitus Chronic kidney disease, stage 4 (severe) Creatinine ranges from 1.9 to 2.20. Venous thrombosis Anemia Hyperkalemia Dementia COVID (06/2021) Schizophrenia Diabetic neuropathy Surgical History Surgical History History of cataract extraction with lens replacement History of section Right great toe amputee Family History Family History Mother Diabetes mellitus Acute myocardial infarction Father Heart attack Cancer Sibling Diabetes mellitus Acute myocardial infarction Social History Social History Social History: The patient lives with her daughter and grand son in [place]. Lifelong nonsmoker. No alcohol or illicit substance abuse. She designates her daughter, Candelaria Gayle, as her surrogate decision maker. Code status: Full code. Smoking status: Former smoker Tobacco type: cigarettes Second hand tobacco smoke exposure: Yes Alcohol intake: never Substance use: never Substance use type: does not use Do You Feel Safe in your Home?: Yes Lack of Transportation: No Lack of Food: Never True Current Housing: I Have Housing Concerned About Future Housing: No Difficulty Paying Gas/Electric Bills: No Difficulty Paying for Meds: No Currently Unemployed: No Education: Master's Degree or Higher Difficulty w/ Childcare or Family Care: No Living arrangements: with family Spiritual care concerns: No Meds Home Medications and Allergies Home Medications ?Medication ?Instructions ?Recorded ?Confirmed ?Type acetaminophen 325 mg tablet 650 mg PO Q6H PRN Pain 09/19/21 05/02/25 History insulin glargine 100 unit/mL (3 11 unit subcut HS 09/19/21 05/02/25 History mL) subcutaneous pen (Lantus Solostar U-100 Insulin) insulin lispro 100 unit/mL 1 - 4 sliding scale dose subcut 09/19/21 05/02/25 History subcutaneous pen USEASDIRECTD lidocaine 5 % topical patch 2 patch topical DAILY PRN Back Pain 09/19/21 05/02/25 History aspirin 81 mg chewable tablet 81 mg PO DAILY 06/28/24 05/02/25 History benztropine 2 mg tablet 2 mg PO HS 06/28/24 05/02/25 History hydralazine 25 mg tablet 25 mg PO TID 06/28/24 05/02/25 History pantoprazole 40 mg tablet,delayed 40 mg PO DAILY 06/28/24 05/02/25 History release atorvastatin 20 mg tablet 20 mg PO QPM 11/09/24 05/02/25 History carvedilol 6.25 mg tablet 6.25 mg PO Q12H 11/09/24 05/02/25 History gabapentin 100 mg capsule 100 mg PO .COMPLEX #30 caps 11/12/24 05/02/25 Rx tramadol 37.5 mg-acetaminophen 325 1 tablet PO Q6H PRN pain #14 tabs 12/26/24 05/02/25 Rx mg tablet cephalexin 500 mg capsule 500 mg PO Q12H #14 caps 04/27/25 05/02/25 Rx calcitriol 0.25 mcg capsule 0.25 mcg PO DAILY 05/02/25 05/02/25 History Allergies Allergy/AdvReac Type Severity Reaction Status Date / Time No Known Allergies Allergy Verified 05/02/25 04:27 Vital Signs Vital Signs - 24 hr 05/01/25 22:11 05/01/25 22:44 05/01/25 23:00 Temperature 97.6 F 97.6 F Pulse Rate 65 82 Respiratory Rate 16 24 H Blood Pressure 84/62 L Pulse Oximetry 98 98 Oxygen Delivery 05/02/25 01:00 05/02/25 02:16 05/02/25 02:30 Temperature Pulse Rate 91 88 88 Respiratory Rate 19 12 16 Blood Pressure 189/46 H 178/73 H Pulse Oximetry 95 96 99 Oxygen Delivery 05/02/25 02:34 05/02/25 02:51 05/02/25 04:00 Temperature 97.5 F L Pulse Rate 85 85 Respiratory Rate 14 18 Blood Pressure 162/84 H 176/65 H Pulse Oximetry 97 100 Oxygen Delivery Room Air 05/02/25 04:00 Temperature Pulse Rate 87 Respiratory Rate Blood Pressure Pulse Oximetry Oxygen Delivery Exam Narrative: AF HR 71 RR 18 SPO2 96 BP 119/40 General: female in no acute respiratory distress who is nontoxic appearing, lying semi recumbent in bed. HEENT: Normocephalic. Atraumatic. Pupils equal round reactive to light. Extraocular movement intact. Sclera clear and anicteric. No facial asymmetry. Chest: Lungs are clear to auscultation bilaterally. No wheezes or crackles. CV: Heart was regular rate and rhythm. S1-S2. No murmurs, gallops, or rubs. Abd: Abdomen was soft. Nontender. Nondistended. Positive bowel sounds. No organomegaly or masses. Ext: No clubbing, cyanosis, or edema. DP pulses bilaterally. Neuro: Patient is alert and oriented x2 following commands but lethargic. Cranial nerves 2-12 are intact. Speech is clear. H&P: Results Labs Labs: Short CBC 05/01/25 Range/Units 22:33 WBC 11.7 H (4.5-10.0) K/mm3 Hgb 9.4 L (12.0-15.0) g/dL Hct 30.1 L (37.0-47.0) % Plt Count 231 (150-375) k/mm3 BMP 05/01/25 22:33 Sodium 135 L Potassium 3.8 Chloride 97 L Carbon Dioxide 25 BUN 37 H D Creatinine 4.76 H Glucose 191 H Calcium 9.4 Liver Function 05/01/25 Range/Units 22:33 Total Bilirubin 0.3 (0.2-1.3) mg/dL AST 27 (14-36) U/L ALT 20 (6-35) U/L Alkaline Phosphatase 124 (38-126) U/L Albumin 4.3 (3.5-5.1) g/dL Urine 05/02/25 Range/Units 00:31 Urine Color Yellow (Yellow) Urine Appearance Clear (Clear) Urine pH 6.0 (5.0-9.0) Ur Specific [place] 1.017 (1.001-1.035) Urine Protein 3+ H (Negative) mg/dL Urine Glucose (UA) 3+ H (Negative) mg/dL Assessment and Plan Assessment and plan (1) Seizure-like activity: Code(s): R56.9 - Unspecified convulsions Status: Acute Assessment and Plan: Per family, patient was about an hour and a half into her regular dialysis when her blood pressure dropped to the 80s/50s so it was stopped and she was given 300 mL of fluid. After this, she had vomiting x2 before approximately 1-2 minute episode of seizure-like activity. Ddx: seizure vs hypotension vs arrhythmia vs electrolyte imbalance - Family reports prior seizure like history though no antiseizure medications started at that time, does not follow neurology - lactic elevated on admission at 4.9, furthering suspicion for seizure. Received IV fluids in the ED and now downtrending. No signs of infection. - Seizure precautions - Continue telemetry to evaluate for arrhythmias - Head CT showed no acute intracranial findings - EEG ordered - Patient was given a loading dose of 1500 mg Keppra in the ED. - ED provider discussed the case with Dr. Alonzo, neurology, who agreed with Keppra load, recommends Keppra 750 mg b.i.d. and will see the patient as a consult. Keppra 750 mg BID ordered - Neurology consulted continue keppra dosing (2) Hypertension: Qualifiers: Hypertension type: unspecified Qualified Code(s): I10 - Essential (primary) hypertension Code(s): I10 - Essential (primary) hypertension Status: Chronic Assessment and Plan: Chronic, continue home medications - carvedilol 6.25 mg daily and hydralazine 25 mg TID - blood pressures reviewed and stable, continue to monitor (3) Heart failure with preserved ejection fraction: Code(s): I50.30 - Unspecified diastolic (congestive) heart failure Status: Chronic Assessment and Plan: Chronic, does not appear in acute exacerbation - Current medications: carvedilol 6.25 mg q12 - Chest XR: no acute pulmonary findings - Echo 06/28/24: [id number]% with grade I diastolic dysfunction - Monitor vital signs, I&Os, BUN/creatinine, daily weights, neuro status and patient is a fall risk - Monitor serum electrolytes, Keep serum Potassium>4 and serum Magnesium>2 and CBC (4) Diabetes: Qualifiers: Chronic kidney disease stage: on chronic dialysis Diabetes mellitus complication detail: with chronic kidney disease Diabetes mellitus complication status: with kidney complications 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: unspecified long-term insulin use status Diabetes mellitus type: type 2 Qualified Code(s): E11.22 - Type 2 diabetes mellitus with diabetic chronic kidney disease; N18.6 - End stage renal disease; Z99.2 - Dependence on renal dialysis Code(s): E11.9 - Type 2 diabetes mellitus without complications Status: Chronic Assessment and Plan: - hypoglycemia protocol - POC blood glucose ACHS - home medication - lantus 11 units and lispro SSI - correct regimen ordered - lantus 9 units ( 20% of home dose given stricter diet during hospitalization) and SSI - A1C 6.5 in 11/10/24 (5) End stage renal disease on dialysis: Code(s): N18.6 - End stage renal disease; Z99.2 - Dependence on renal dialysis Status: Acute Assessment and Plan: Chronic HD on //Thu Nephrology consulted (6) Parkinsons: Code(s): G20.A1 - Parkinson's disease without dyskinesia, without mention of fluctuations Status: Acute Assessment and Plan: Chronic, continue home medications Quality VTE Prophylaxis VTE prophylaxis: pharmacologic ordered Hospitalist MIPS Advance Care Plan I have confirmed that the patient's Advanced Care Plan is present, code status is documented, or surrogate decision maker is listed in patient medical record.: Yes Medication Reconciliation I have utilized all available resources to obtain, update and review the patients current medications (includes all prescriptions, OTC, herbals, cannabis, and nutritional supplements).: Yes
[2025-05-02 08:03] LABS: Hematocrit 30.0 % (37.0-47.0); Hemoglobin 9.5 g/dL (12.0-15.0); Mean Corpuscular HGB Conc 31.7 g/dl (32-36); Mean Corpuscular Hemoglobin 30.8 pg (26-34); Mean Corpuscular Volume 97.4 fl (80-100); Platelet Count Result 209 k/mm3 (150-375); Red Blood Count 3.08 M/mm3 (4.2-5.4); White Blood Count 11.8 K/mm3 (4.5-10.0)
[2025-05-02 08:34] LABS: Alanine Aminotransferase 16 U/L (6-35); Albumin Level 3.6 g/dL (3.5-5.1); Alkaline Phosphatase 101 U/L (38-126); Anion Gap 10 mmol/L (4-12); Aspartate Amino Transferase 23 U/L (14-36); Bilirubin,Total 0.3 mg/dL (0.2-1.3); Blood Urea Nitrogen 44 mg/dL (7-17); Calcium 8.7 mg/dL (8.4-10.2); Carbon Dioxide 27 mmol/L (22-30); Chloride 100 mmol/L (98-107); Estimated CRCL calculation 8 ml/min; Estimated Glomerular Filt Rate 8; Glucose 171 mg/dL (65-110); Potassium 4.2 mmol/L (3.4-5.0); Sodium 137 mmol/L (137-145); Total Protein 7.0 g/dL (6.3-8.2)
--- NOTE | 2025-05-02 09:43 | WPDNEURCNPN ---
Assessment and Plan Assessment and plan (1) Seizure: Code(s): R56.9 - Unspecified convulsions Status: Acute (2) ESRD (end stage renal disease) on dialysis: Code(s): N18.6 - End stage renal disease; Z99.2 - Dependence on renal dialysis Status: Acute (3) Diabetic neuropathy: Code(s): E11.40 - Type 2 diabetes mellitus with diabetic neuropathy, unspecified Status: Acute (4) Drug-induced Parkinson's disease: Code(s): G21.19 - Other drug induced secondary parkinsonism Status: Acute Plan 1. Chronic stand stage renal disease, dialysis dependent 2. sudden drop of blood pressure followed by seizure-like activity.3. Diabetes mellitus 4. Dementia 5. Schizophrenia 5. Patient has already been loaded with the Keppra and will continue on the maintenance dosage, While other medical evaluation is being carried out. Consult date: 05/02/25 HPI: Barbara Chakraborty is a 74 year old femaleAdmitted to the hospital for the complaints of seizure-like activity. As per the information available patient was reportedly an hour and half into her regular dialysis when her blood pressure dropped down to 80s over 50s. Dialysis had to be stopped. She had an episode of vomiting and after that she was noted to have seizure-like activity lasting for about 1 to 2 minutes she is not receiving any medication for seizures and by the time she came to the emergency room she was at her baseline. She has been receiving multiple medications including 1. Insulin 2. Aspirin 81mg daily 3. Hydralazine 25mg 3 times a day 4. Carvedilol 6.25mg q.12 hours 5. Atorvastatin 20mg daily 6. Calcitriol 0.25mcg capsule daily and 7. Pantoprazole 40mg daily. She is not allergic to any medication. She has ongoing history of 1. Drug-induced Parkinson's disease 2. Insulin-dependent diabetes mellitus with diabetic neuropathy 3. Chronic renal disease stage IV 5. Dementia 6. Schizophrenia. She has also undergone right great toe amputation in addition to cataract extraction. She is a former smoker with no history of alcohol intake. On initial exam in the emergency room she was able to move all extremities fairly well. She was noted to be afebrile with blood pressure 176/65, her CBC was with hemoglobin only 9.4, her BMP with sodium 135 and BUN 37 with creatinine 4.76 and blood sugar of 191. Otherwise her mast scan was normal, UA was abnormal with wbc's 21 to 50. , initial CT scan of the head revealed no evidence of bleed. She was given Keppra as a loading dose of 1500mg in the emergency room. Review of Systems Review of Systems: All systems reviewed & are unremarkable except as noted in HPI and below PMFSH Past Medical History Medical History Drug-induced Parkinson's disease Heart failure with preserved ejection fraction Insulin dependent diabetes mellitus Chronic kidney disease, stage 4 (severe) Creatinine ranges from 1.9 to 2.20. Venous thrombosis Anemia Hyperkalemia Dementia COVID (06/2021) Schizophrenia Diabetic neuropathy Surgical History Surgical History History of cataract extraction with lens replacement History of section Right great toe amputee Family History Family History Mother Diabetes mellitus Acute myocardial infarction Father Heart attack Cancer Sibling Diabetes mellitus Acute myocardial infarction Social History Social History Social History: The patient lives with her daughter and grand son in [place]. Lifelong nonsmoker. No alcohol or illicit substance abuse. She designates her daughter, Candelaria Gayle, as her surrogate decision maker. Code status: Full code. Smoking status: Former smoker Tobacco type: cigarettes Second hand tobacco smoke exposure: Yes Alcohol intake: never Substance use: never Substance use type: does not use Do You Feel Safe in your Home?: Yes Lack of Transportation: No Lack of Food: Never True Current Housing: I Have Housing Concerned About Future Housing: No Difficulty Paying Gas/Electric Bills: No Difficulty Paying for Meds: No Currently Unemployed: No Education: Master's Degree or Higher Difficulty w/ Childcare or Family Care: No Living arrangements: with family Spiritual care concerns: No Meds Home Medications and Allergies Home Medications ?Medication ?Instructions ?Recorded ?Confirmed ?Type acetaminophen 325 mg tablet 650 mg PO Q6H PRN Pain 09/19/21 05/02/25 History insulin glargine 100 unit/mL (3 11 unit subcut HS 09/19/21 05/02/25 History mL) subcutaneous pen (Lantus Solostar U-100 Insulin) insulin lispro 100 unit/mL 1 - 4 sliding scale dose subcut 09/19/21 05/02/25 History subcutaneous pen USEASDIRECTD lidocaine 5 % topical patch 2 patch topical DAILY PRN Back Pain 09/19/21 05/02/25 History aspirin 81 mg chewable tablet 81 mg PO DAILY 06/28/24 05/02/25 History benztropine 2 mg tablet 2 mg PO HS 06/28/24 05/02/25 History hydralazine 25 mg tablet 25 mg PO TID 06/28/24 05/02/25 History pantoprazole 40 mg tablet,delayed 40 mg PO DAILY 06/28/24 05/02/25 History release atorvastatin 20 mg tablet 20 mg PO QPM 11/09/24 05/02/25 History carvedilol 6.25 mg tablet 6.25 mg PO Q12H 11/09/24 05/02/25 History gabapentin 100 mg capsule 100 mg PO .COMPLEX #30 caps 11/12/24 05/02/25 Rx tramadol 37.5 mg-acetaminophen 325 1 tablet PO Q6H PRN pain #14 tabs 12/26/24 05/02/25 Rx mg tablet cephalexin 500 mg capsule 500 mg PO Q12H #14 caps 04/27/25 05/02/25 Rx calcitriol 0.25 mcg capsule 0.25 mcg PO DAILY 05/02/25 05/02/25 History Allergies Allergy/AdvReac Type Severity Reaction Status Date / Time No Known Allergies Allergy Verified 05/02/25 04:27 Vital Signs Vital Signs - 24 hr 05/01/25 22:11 05/01/25 22:44 05/01/25 23:00 Temperature 36.4 C 36.4 C Pulse Rate 65 82 Respiratory Rate 16 24 H Blood Pressure 84/62 L Pulse Oximetry 98 98 Oxygen Delivery 05/02/25 01:00 05/02/25 02:16 05/02/25 02:30 Temperature Pulse Rate 91 88 88 Respiratory Rate 19 12 16 Blood Pressure 189/46 H 178/73 H Pulse Oximetry 95 96 99 Oxygen Delivery 05/02/25 02:34 05/02/25 02:51 05/02/25 04:00 Temperature 36.4 C L Pulse Rate 85 85 Respiratory Rate 14 18 Blood Pressure 162/84 H 176/65 H Pulse Oximetry 97 100 Oxygen Delivery Room Air 05/02/25 04:00 05/02/25 07:59 Temperature 36.5 C Pulse Rate 87 79 Respiratory Rate 20 Blood Pressure 143/54 H Pulse Oximetry 93 Oxygen Delivery Exam Narrative: Exam today reveals her to be awake but not very responsive to the verbal commands also in no obvious acute distress, head normocephalic with no bruit, neck supple with no cervical bruit, heart regular with no murmur, lungs clear to auscultation with no rhonchi or crepitation, abdomen soft nontender with normal bowel sounds, neurologically she is awake alert but not following verbal commands appropriately, pupils round regular feels the vision grossly full to threat stimuli, extraocular movements are spontaneously full in horizontal gaze with no nystagmus, facial grimace symmetrical motor examination revealed her to have decreased strength in upper and lower extremities reflexes are extremely sluggish and plantars downgoing she had decreased sensation distally. Results Labs 05/02/25 07:57 05/02/25 07:57 Labs: Short CBC 05/01/25 05/02/25 Range/Units 22:33 07:57 WBC 11.7 H 11.8 H (4.5-10.0) K/mm3 Hgb 9.4 L 9.5 L (12.0-15.0) g/dL Hct 30.1 L 30.0 L (37.0-47.0) % Plt Count 231 209 (150-375) k/mm3 BMP 05/01/25 05/02/25 22:33 07:57 Sodium 135 L 137 Potassium 3.8 4.2 Chloride 97 L 100 Carbon Dioxide 25 27 BUN 37 H D 44 H Creatinine 4.76 H 5.27 H Glucose 191 H 171 H Calcium 9.4 8.7 Liver Function 05/01/25 05/02/25 Range/Units 22:33 07:57 Total Bilirubin 0.3 0.3 (0.2-1.3) mg/dL AST 27 23 (14-36) U/L ALT 20 16 (6-35) U/L Alkaline Phosphatase 124 101 (38-126) U/L Albumin 4.3 3.6 (3.5-5.1) g/dL Urine 05/02/25 Range/Units 00:31 Urine Color Yellow (Yellow) Urine Appearance Clear (Clear) Urine pH 6.0 (5.0-9.0) Ur Specific [place] 1.017 (1.001-1.035) Urine Protein 3+ H (Negative) mg/dL Urine Glucose (UA) 3+ H (Negative) mg/dL
[2025-05-02] MEDS: PANTOPRAZOLE 40 MG TABLET PO (09:48)
[2025-05-02] MEDS: ASPIRIN 81 MG CHEWABLE TABLET PO (09:48)
[2025-05-02] MEDS: levETIRAcetam Tablet 250 MG, levETIRAcetam Tablet 500 MG 750 MG PO ×2 (09:49→20:46)
--- NOTE | 2025-05-02 10:52 | P.CONNP_ITS ---
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 Markie Ryan (2) Seizure-like activity: Code(s): R56.9 - Unspecified convulsions Status: Acute Assessment and Plan: * reported history but no outpatient medications for this * elevated lactic acid noted without evidence of infection suspicious for seizure * seizure precautions * Head CT negative * started on Keppra * Neurology recommendations noted (3) Anemia: Qualifiers: Anemia type: unspecified type Qualified Code(s): D64.9 - Anemia, unspecified Code(s): D64.9 - Anemia, unspecified Status: Chronic Assessment and Plan: * due to ESRD * GARFIELD/Epogen with HD * check iron studies if worsens * follow trend of H/H (4) Congestive heart failure: Qualifiers: Heart failure chronicity: chronic Heart failure type: diastolic Q ualified Code(s): I50.32 - Chronic diastolic (congestive) heart failure Code(s): I50.9 - Heart failure, unspecified Status: Chronic Assessment and Plan: * compensated at this time * fluid removal with HD to maintain euvolemia * follow volume status (5) Hypertension: Qualifiers: Hypertension type: unspecified Qualified Code(s): I10 - Essential (primary) hypertension Code(s): I10 - Essential (primary) hypertension Status: Chronic Assessment and Plan: * reasonable control at this time * adjust medications as needed * follow trend of hemodynamics (6) Insulin dependent diabetes mellitus: Status: Chronic Assessment and Plan: * follow accu-cheks * glycemic control per hospitalist I will continue to follow the patient with you while she remains hospitalized and make further recommendations as deemed necessary. Thank you for allowing me to participate in the care of this patient. L History of Present Illness Reason for Consult Consult date: 05/02/25 Reason for consult: end stage renal disease Chief Complaint Chief complaint: Seizure activity History of Present Illness Narrative: All the history that I have obtained is from review of the electronic medical record as well as discussion with the physicians/nurses involved in the patient's care along with my previous experience taking care of her in the past as it difficult to get a full and complete history from the patient given her underlying dementia. The patient presented to [facility] Emergency Room for suspected seizure activity. The patient was doing her regularly scheduled home hemodialysis treatment yesterday evening when about 1.5 hours into her treatment she developed acute hypotension with her systolic BP dropping to the 80s. Her dialysis treatment was discontinued and she was given a 300 cc fluid bolus in attempt to compensate for this change shortly after this, she apparently had couple of episodes of vomiting which was then subsequently followed by what appeared to be seizure-like activity for approximately 1-2 minutes. Given this history and sequence of events, she was transported to the emergency room for further assessment. Workup and evaluation emergency room demonstrated the patient to be hemodynamically stable if not a bit hypertensive and afebrile. Routine blood work demonstrated white blood cell count 11.7, hemoglobin 9.4, platelet count of 231, sodium 135, potassium 3.8, bicarb 25, BUN 37, creatinine 4.76, glucose 191, calcium 9.4, phosphorus 4.1, magnesium 1.6, normal LFTs, and a lactic acid of 4.9. Urinalysis was significant for 3+ protein, 3+ glucose, 1+ leukocyte esterase, in 21 -[address] white blood cells. Subsequent CT scan of the head demonstrated no acute intracranial pathology. She was given a loading dose of 1500 mg of IV Keppra and Neurology was consulted from the ER who recommended Keppra 750 mg twice a day. Repeat lactic acid had improved to 2.6. She was subsequently admitted to the hospital for further evaluation and therapy. Renal consultation was requested due to her end-stage renal disease. The patient does home hemodialysis since the beginning of this year .She had been doing in-center hemodialysis on a Thursday, Thursday, Thursday dialysis schedule at [facility] under the care of Dr. Markie Ryan. She continues to see Dr. Ryan for management of her end-stage renal disease needs. She does home hemodialysis at least 4 or 5 treatments a week and this seems to maintain stability in her electrolytes, volume status, and provide adequate clearance of uremic toxins. Her daughter is the main provider/support with regard to performing these home hemodialysis treatments. As far as I am aware, her home hemodialysis treatments had been uneventful until yesterday evening as noted above. Currently, at the time my evaluation, she appears to be in no acute distress. Review of Systems 2 Review of Systems: As per HPI. [facility] Past Medical History Medical History Drug-induced Parkinson's disease Heart failure with preserved ejection fraction Insulin dependent diabetes mellitus Chronic kidney disease, stage 4 (severe) Creatinine ranges from 1.9 to 2.20. Venous thrombosis Anemia Hyperkalemia Dementia COVID (06/2021) Schizophrenia Diabetic neuropathy Surgical History Surgical History History of cataract extraction with lens replacement History of section Right great toe amputee Family History Family History Mother Diabetes mellitus Acute myocardial infarction Father Heart attack Cancer Sibling Diabetes mellitus Acute myocardial infarction Social History Social History Social History: The patient lives with her daughter and grand son in [place]. Lifelong nonsmoker. No alcohol or illicit substance abuse. She designates her daughter, Candelaria Gayle, as her surrogate decision maker. Code status: Full code. Smoking status: Former smoker Tobacco type: cigarettes Second hand tobacco smoke exposure: Yes Alcohol intake: never Substance use: never Substance use type: does not use Do You Feel Safe in your Home?: Yes Lack of Transportation: No Lack of Food: Never True Current Housing: I Have Housing Concerned About Future Housing: No Difficulty Paying Gas/Electric Bills: No Difficulty Paying for Meds: No Currently Unemployed: No Education: Master's Degree or Higher Difficulty w/ Childcare or Family Care: No Living arrangements: with family Spiritual care concerns: No Meds Home Medications and Allergies Home Medications ?Medication ?Instructions ?Recorded ?Confirmed ?Type acetaminophen 325 mg tablet 650 mg PO Q6H PRN Pain 05/02/25 History insulin glargine 100 unit/mL (3 14 unit subcut HS 08/2205/02/25 History mL) subcutaneous pen (Lantus Solostar U-100 Insulin) insulin lispro 100 unit/mL 1 - 4 sliding scale dose moran bcut 09/19/21 05/02/25 History subcutaneous pen USEASDIRECTD lidocaine 5 % topical patch 2 patch topical DAILY PRN Back Pain 09/19/21 05/02/25 History aspirin 81 mg chewable tablet 81 mg PO DAILY 06/28/24 05/02/25 History benztropine 2 mg tablet 2 mg PO HS 06/28/24 05/02/25 History hydralazine 25 mg tablet 25 mg PO TID 06/28/24 History pantoprazole 40 mg tablet,delayed 40 mg PO DAILY 06/2805/02/25 History release atorvastatin 20 mg tablet 20 mg PO QPM 11/09/24 History carvedilol 6.25 mg tablet 6.25 mg PO Q12H 11/09/2405/16 History gabapentin 100 mg capsule 100 mg PO .COMPLEX #30 caps 11/12/24 05/02/25 Rx tramadol 37.5 mg-acetaminophen 325 1 tablet PO Q6H PRN pain #14 tabs 12/26/24 05/02/25 Rx mg tablet cephalexin 500 mg capsule 500 mg PO Q12H #14 caps 12/1405/02/25 Rx calcitriol 0.25 mcg capsule 0.25 mcg PO DAILY 05/02/25 05/02/25 History calcium phosphate,dibasic 77 tablet PO WEEKLY 05/02/25 History mg-vitamin D3 400 unit tablet risperidone 2 mg tablet (Risperdal) 2 mg PO DAILY 04/2205/02/25 History Allergies Allergy/AdvReac Type Severity Reaction Status Date / Time No Known Allergies Allergy Verified 05/02/25 04:27 Vital Signs Vital Signs Temp Pulse Resp BP Pulse Ox O2 Del Method 05/02/25 09:48 79 05/02/25 08:00 76 05/02/25 08:00 Room Air 05/02/25 07:59 97.7 F 79 20 143/54 H 93 05/02/25 04:00 87 05/02/25 04:00 97.5 F L 85 18 176/65 H 100 05/02/25 02:51 85 14 162/84 H 97 05/02/25 02:34 Room Air 05/02/25 02:30 88 16 99 05/02/25 02:16 88 12 178/73 H 96 05/02/25 01:00 91 19 189/46 H 95 05/01/25 23:00 82 24 H 98 05/01/25 22:44 97.6 F 65 16 84/62 L 98 05/01/25 22:11 97.6 F Exam 2 Narrative: GENERAL APPEARANCE: elderly female in no acute distress HEENT: normocephalic, atraumatic, normal conjunctiva and sclera, nares patient NECK: no lymphadenopathy, thyromegaly, or JVD MOUTH: normal lips, teeth, and gums CARDIOVASCULAR: RRR, normal S1 and S2, no rub RESPIRATORY: clear to auscultation ABDOMEN: soft, nontender, nondistended, positive bowel sounds present EXTREMITIES: no evidence of cyanosis, clubbing, or edema NEUROLOGICAL: alert and oriented x 2; no focal deficits noted; generalized weakness noted Results Lab Results 05/02/25 07:57 05/02/25 07:57 Lab results: Most recent lab results Calcium 8.7 mg/dL (8.4-10.2) 05/02/25 07:57 Phosphorus 4.1 mg/dL (2.5-4.5) 05/01/25 22:33 Magnesium 1.6 mg/dL (1.6-2.3) 05/01/25 22:33
--- NOTE | 2025-05-02 15:36 | PCNEURO ---
EEG to be performed tomorrow after outpatients.
[2025-05-02 15:48] LABS: MRSA (PCR) NOT DETECTED (NOT DETECTE)
[2025-05-02] MEDS: INSULIN ASPART (*BKC) 100 UNITS/ML SUB-Q (16:57)
[2025-05-02] MEDS: ATORVASTATIN 20 MG TABLET PO (17:34)
[2025-05-02] MEDS: BENZTROPINE MESYLATE 1 MG TABLET 2 MG PO (20:46)
[2025-05-02] MEDS: INSULIN GLARGINE (*BKC) 100 UNITS/ML 9 UNITS SUB-Q (20:54)
[2025-05-03] VITALS (27 sets, daily range): BP systolic 88–153; BP diastolic 44–99; PULSE 60–78; RESP 15–18; TEMP 36.4–37.2; O2SAT 93–100
[2025-05-03 05:38] LABS: Hematocrit 27.1 % (37.0-47.0); Hemoglobin 8.5 g/dL (12.0-15.0); Mean Corpuscular HGB Conc 31.4 g/dl (32-36); Mean Corpuscular Hemoglobin 31.0 pg (26-34); Mean Corpuscular Volume 98.9 fl (80-100); Platelet Count Result 205 k/mm3 (150-375); Red Blood Count 2.74 M/mm3 (4.2-5.4); White Blood Count 10.7 K/mm3 (4.5-10.0)
[2025-05-03 05:58] LABS: Alanine Aminotransferase 12 U/L (6-35); Albumin Level 3.4 g/dL (3.5-5.1); Alkaline Phosphatase 92 U/L (38-126); Anion Gap 8 mmol/L (4-12); Aspartate Amino Transferase 16 U/L (14-36); Bilirubin,Total 0.4 mg/dL (0.2-1.3); Blood Urea Nitrogen 57 mg/dL (7-17); Calcium 9.1 mg/dL (8.4-10.2); Carbon Dioxide 25 mmol/L (22-30); Chloride 103 mmol/L (98-107); Estimated CRCL calculation 5 ml/min; Estimated Glomerular Filt Rate 5; Glucose 192 mg/dL (65-110); Potassium 4.6 mmol/L (3.4-5.0); Sodium 136 mmol/L (137-145); Total Protein 6.6 g/dL (6.3-8.2)
--- NOTE | 2025-05-03 08:11 | P.PNIM_ITS ---
Progress Note: A&P Assessment and Plan (1) Seizure-like activity: Code(s): R56.9 - Unspecified convulsions Status: Acute Assessment and Plan: Per family, patient was about an hour and a half into her regular dialysis when her blood pressure dropped to the 80s/50s so it was stopped and she was given 300 mL of fluid. After this, she had vomiting x2 before approximately 1-2 minute episode of seizure-like activity. Ddx: seizure vs hypotension vs arrhythmia vs electrolyte imbalance - Family reports prior seizure like history though no antiseizure medications started at that time, does not follow neurology - Lactic elevated on admission at 4.9, furthering suspicion for seizure. Received IV fluids in the ED and now downtrending. No signs of infection. - Seizure precautions - Continue telemetry to evaluate for arrhythmias, tele reviewed and stable - Head CT showed no acute intracranial findings - EEG ordered - Patient was given a loading dose of 1500 mg Keppra in the ED. - ED provider discussed the case with Dr. Alonzo, neurology, who agreed with Keppra load, recommends Keppra 750 mg b.i.d. and will see the patient as a consult. Keppra 750 mg BID ordered - Neurology consulted continue keppra dosing Patient remains at her baseline mental status of AOx2 (self and place) per daughter. She is much more awake and alert today. Remains on Keppra. (2) Hypertension: Qualifiers: Hypertension type: unspecified Qualified Code(s): I10 - Essential (primary) hypertension Code(s): I10 - Essential (primary) hypertension Status: Chronic Assessment and Plan: Chronic, continue home medications - carvedilol 6.25 mg daily and hydralazine 25 mg TID - blood pressures reviewed and stable, continue to monitor (3) Heart failure with preserved ejection fraction: Code(s): I50.30 - Unspecified diastolic (congestive) heart failure Status: Chronic Assessment and Plan: Chronic, does not appear in acute exacerbation - Current medications: carvedilol 6.25 mg q12, fluid removal with HD to maintain euvolemia - Chest XR: no acute pulmonary findings - Echo 06/28/24: [id number]% with grade I diastolic dysfunction - Monitor vital signs, I&Os, BUN/creatinine, daily weights, neuro status and patient is a fall risk - Monitor serum electrolytes, Keep serum Potassium>4 and serum Magnesium>2 and CBC Remains euvolemic. Continue to monitor. 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: unspecified care home insulin use status Diabetes mellitus type: type 2 Qualified Code(s): E11.22 - Type 2 diabetes mellitus with diabetic chronic kidney disease; N18.6 - End stage renal disease; Z99.2 - Dependence on renal dialysis Code(s): E11.9 - Type 2 diabetes mellitus without complications Status: Chronic Assessment and Plan: - hypoglycemia protocol - POC blood glucose ACHS - home medication - lantus 14 units and lispro SSI - correct regimen ordered - lantus 11 units ( 20% of home dose given stricter diet during hospitalization) and SSI - A1C 6.5 in 11/10/24 (6) End stage renal disease on dialysis: Code(s): N18.6 - End stage renal disease; Z99.2 - Dependence on renal dialysis Status: Acute Assessment and Plan: Chronic HD on //Thu Nephrology consulted * continue dialysis schedule while hospitalized, eventually transition back to home HD on discharge * follow electrolytes, volume status, and clearance * outpatient dialysis unit = [facility] * primary archivist military history = Dr. Markie Ryan Plan for dialysis today. (7) Parkinsons: Code(s): G20.A1 - Parkinson's disease without dyskinesia, without mention of fluctuations Status: Acute Assessment and Plan: Chronic, continue home medications Time Spent With Patient Time with patient: 25 - 35 minutes Subjective Date/time seen: 05/03/25 08:11 Interval history: 74 year old female with diabetes, ESRD on HD //thu, Parkinson's, diabetes, HFpEF, dementia, anemia, and schizophrenia presents to the hospital for seizure like activity. Patient is pleasant lying comfortably in bed. She remains alert and oriented x2 which is her baseline per daughter. She is much more alert today and states she is feeling better. She has no complaints denying chest pain, shortness a breath, palpitations, nausea/vomiting, abdominal pain, and dizziness/lightheadedness. Review of Systems Review of Systems: All systems reviewed & are unremarkable except as noted in HPI and below Exam Narrative: AF HR 65 RR17 Spo2 97 BP 133/55 General: female in no acute respiratory distress who is nontoxic appearing, lying semi recumbent in bed and able to sit up in bed by herself during assessment HEENT: Normocephalic. Atraumatic. Pupils equal round reactive to light. Extraocular movement intact. Sclera clear and anicteric. No facial asymmetry. Chest: Lungs are clear to auscultation bilaterally. No wheezes or crackles. CV: Heart was regular rate and rhythm. Abd: Abdomen was soft. Nontender. Nondistended. Positive bowel sounds. No organomegaly or masses. Ext: No clubbing, cyanosis, or edema. DP pulses bilaterally. Neuro: Patient is alert and oriented x2 following commands. Much more alert today. Cranial nerves 2-12 are intact. Speech is clear. Objective Data Vital Signs Vital Signs: Vital Signs - 24 hr 05/02/25 09:48 05/02/25 11:50 05/02/25 12:00 Temperature 97.9 F Pulse Rate 79 71 73 Respiratory Rate 18 Blood Pressure 119/40 L Pulse Oximetry 96 Oxygen Delivery 05/02/25 16:00 05/02/25 16:00 05/02/25 20:00 Temperature 97.1 F L 98.2 F Pulse Rate 73 76 74 Respiratory Rate 18 18 Blood Pressure 123/43 L 125/42 L Pulse Oximetry 98 95 Oxygen Delivery 05/02/25 20:00 05/02/25 20:48 05/02/25 20:48 Temperature Pulse Rate 75 72 Respiratory Rate Blood Pressure Pulse Oximetry Oxygen Delivery Room Air 05/03/25 00:00 05/03/25 00:00 05/03/25 04:00 Temperature 99.0 F Pulse Rate 71 70 63 Respiratory Rate 15 Blood Pressure 133/59 L Pulse Oximetry 98 Oxygen Delivery 05/03/25 05:42 Temperature 98.4 F Pulse Rate 66 Respiratory Rate 17 Blood Pressure 127/63 Pulse Oximetry 93 Oxygen Delivery Intake/Output Intake/Output: Intake & Output 04/30/25 05/01/25 05/02/25 05/03/25 23:59 23:59 23:59 23:59 Intake Total 1150 100 Output Total 0 Balance 1150 100 Meds/Results Medications: Active Medications Generic Name Dose Route Start Last Admin Trade Name Lisa PRN Reason Stop Dose Admin Acetaminophen 650 mg 05/02/25 07:33 Acetaminophen 325 Mg Tablet PO Q6H PRN Pain Aspirin 81 mg 05/02/25 09:00 05/02/25 09:48 Aspirin 81 Mg Chewable Tablet PO 81 mg DAILY SOL Administration Atorvastatin Calcium 20 mg 05/02/25 18:00 05/02/25 17:34 Atorvastatin 20 Mg Tablet PO 20 mg QPM SOL Administration Benztropine Mesylate 2 mg 05/02/25 21:00 05/02/25 20:46 Benztropine Mesylate 1 Mg Tablet PO 2 mg HS SOL Administration Calcitriol 0.25 mcg 05/02/25 09:00 05/02/25 09:48 Calcitriol 0.25 Mcg Capsule PO 0.25 mcg DAILY SOL Administration Carvedilol 6.25 mg 05/02/25 09:00 05/02/25 20:48 Carvedilol 6.25 Mg Tablet PO 6.25 mg Q12H SOL Administration Dextrose 12.5 gm 05/02/25 07:34 Dextrose 50% 25 Gm/50 Ml Syringe IV PUSH PRN PRN Hypoglycemia Protocol Epoetin Lucius-epbx 10,000 units 05/03/25 18:34 Epoetin Lucius-Epbx 10,000 Units/Ml Vial IV PUSH 05/03/25 18:35 ONCE ONE Gabapentin 100 mg 05/03/25 21:00 Gabapentin 100 Mg Capsule PO [id number] SOL Glucagon 1 mg 05/02/25 07:34 Glucagon For Inj 1 Mg Vial IM PRN PRN Hypoglycemia Protocol Glucose 15 gm 05/02/25 07:34 Glucose Oral Gel 15 Gm Of Glucse In 37.5 Gm Tube PO PRN PRN Hypoglycemia Protocol Heparin Sodium (Porcine) 5,000 units 05/02/25 21:00 05/02/25 20:48 Heparin Sodium 5,000 Units/Ml Vial SUB-Q 5,000 units Q12HR SOL Administration Hydralazine HCl 25 mg 05/02/25 09:00 05/02/25 16:57 Hydralazine Hcl 25 Mg Tablet PO 25 mg TID SOL Administration Dextrose 1,000 mls @ 100 mls/hr 05/02/25 07:34 Dextrose 5% 1,000 Ml IVPB PRN PRN Hypoglycemia Protocol Albumin Human 50 mls @ 999 mls/hr 05/03/25 06:34 Albutein IVPB 06/02/25 06:33 Q10M PRN HYPOTENSION Insulin Aspart 2 - 5 units 05/02/25 08:00 05/02/25 16:57 Insulin Aspart (*Bkc) 100 Units/Ml SUB-Q 4 units TIDWM SOL Administration Protocol Insulin Glargine 9 units 05/02/25 21:00 05/02/25 20:54 Insulin Glargine (*Bkc) 100 Units/Ml SUB-Q 9 units HS SOL Administration Levetiracetam 250 mg/ 750 mg 05/02/25 09:00 05/02/25 20:46 Levetiracetam 500 mg PO 750 mg Q12HR SOL Administration Lidocaine 2 patch 05/02/25 07:33 Lidocaine 5% Patch TOPICAL DAILY PRN Back Pain Pantoprazole Sodium 40 mg 05/02/25 09:00 05/02/25 09:48 Pantoprazole 40 Mg Tablet PO 40 mg DAILY SOL Administration Tramadol/Acetaminophen 1 tab 05/02/25 07:33 Tramadol/Acetaminophen (*Crx) (Ultracet) 37.5/325 Mg Tablet PO Q6H PRN Pain 4-6 Radiology Results: ITS Impressions Chest X-Ray 05/01/25 22:45 IMPRESSION: No acute pulmonary findings. Head CT 05/02/25 06:57 IMPRESSION: 1. No acute intracranial findings. Labs Labs: Laboratory Results - last 24 hr 05/02/25 05/02/25 05/02/25 07:57 11:23 14:27 WBC RBC Hgb Hct MCV MCH MCHC RDW Plt Count MPV Sodium 137 Potassium 4.2 Chloride 100 Carbon Dioxide 27 Anion Gap 10 BUN 44 H Creatinine 5.27 H Estim Creat Clear Calc 8 Estimated GFR 8 L Glucose 171 H POC Capillary Glucose 196 H Calcium 8.7 Total Bilirubin 0.3 AST 23 ALT 16 Alkaline Phosphatase 101 Total Protein 7.0 Albumin 3.6 Nasal MRSA (PCR) Not detected 05/02/25 05/02/25 05/03/25 16:25 20:56 05:26 WBC 10.7 H RBC 2.74 L Hgb 8.5 L Hct 27.1 L MCV 98.9 MCH 31.0 MCHC 31.4 L RDW 14.6 H Plt Count 205 MPV 10.5 H Sodium 136 L Potassium 4.6 Chloride 103 Carbon Dioxide 25 Anion Gap 8 BUN 57 H D Creatinine 7.54 H Estim Creat Clear Calc 5 Estimated GFR 5 L Glucose 192 H POC Capillary Glucose 308 H 294 H Calcium 9.1 Total Bilirubin 0.4 AST 16 ALT 12 Alkaline Phosphatase 92 Total Protein 6.6 Albumin 3.4 L Nasal MRSA (PCR) 05/03/25 07:25 WBC RBC Hgb Hct MCV MCH MCHC RDW Plt Count MPV Sodium Potassium Chloride Carbon Dioxide Anion Gap BUN Creatinine Estim Creat Clear Calc Estimated GFR Glucose POC Capillary Glucose 196 H Calcium Total Bilirubin AST ALT Alkaline Phosphatase Total Protein Albumin Nasal MRSA (PCR) Quality VTE Prophylaxis VTE prophylaxis: pharmacologic ordered
[2025-05-03 08:40] LABS: Hepatitis B Surface Antigen Negative (Negative)
[2025-05-03] MEDS: levETIRAcetam Tablet 250 MG, levETIRAcetam Tablet 500 MG 750 MG PO ×2 (08:47→21:00)
[2025-05-03] MEDS: ASPIRIN 81 MG CHEWABLE TABLET PO (08:48)
[2025-05-03] MEDS: PANTOPRAZOLE 40 MG TABLET PO (08:48)
[2025-05-03 09:09] LABS: Hepatitis B Surface Anti Res Positive
[2025-05-03] MEDS: INSULIN ASPART (*BKC) 100 UNITS/ML SUB-Q (11:24)
--- NOTE | 2025-05-03 14:45 | P.PNNP_ITS ---
Progress Note: A&P Assessment and Plan (1) End stage renal disease: Code(s): N18.6 - End stage renal disease Status: Chronic Assessment and Plan: * HD today * continue Thu/Thu/Thursday dialysis schedule while hospitalized * eventually transition back to home HD on discharge * follow electrolytes, volume status, and clearance * outpatient dialysis unit = [facility] * primary aquatics lifeguard = Dr. Markie Ryan (2) Seizure-like activity: Code(s): R56.9 - Unspecified convulsions Status: Acute Assessment and Plan: * reported history but no outpatient medications for this * elevated lactic acid noted without evidence of infection suspicious for seizure * seizure precautions * Head CT negative * on Keppra * Neurology recommendations noted (3) Anemia: Qualifiers: Anemia type: unspecified type Qualified Code(s): D64.9 - Anemia, unspecified Code(s): D64.9 - Anemia, unspecified Status: Chronic Assessment and Plan: * due to ESRD * GARFIELD/Epogen with HD * check iron studies if worsens * follow trend of H/H (4) Congestive heart failure: Qualifiers: Heart failure type: diastolic Heart failure chronicity: chronic Q ualified Code(s): I50.32 - Chronic diastolic (congestive) heart failure Code(s): I50.9 - Heart failure, unspecified Status: Chronic Assessment and Plan: * compensated at this time * fluid removal with HD to maintain euvolemia * follow volume status (5) Hypertension: Qualifiers: Hypertension type: unspecified Qualified Code(s): I10 - Essential (primary) hypertension Code(s): I10 - Essential (primary) hypertension Status: Chronic Assessment and Plan: * reasonable control at this time * adjust medications as needed * follow trend of hemodynamics (6) Insulin dependent diabetes mellitus: Status: Chronic Assessment and Plan: * follow accu-cheks * glycemic control per hospitalist Will continue to follow. L Subjective Date/time seen: 05/03/25 14:45 Interval history: Follow-up for end stage renal disease on hemodialysis. Tolerating dialysis treatment at the time of my visit (seen on HD at 2:35pm); no apparent distress noted when seen; no acute complaints voiced; no other issues/events overnight or earlier this morning; no seizure activity noted since admission. Exam 2 Narrative: General: elderly female in NAD Heart: normal S1 and S2; no rub Lungs: clear to auscultation Abdomen: soft, nontender, nondistended, positive bowel sounds Extremities: no cyanosis or clubbing; no edema Skin: warm and dry Objective Data Vital Signs Vital Signs: Vital Signs Temp Pulse Resp BP Pulse Ox O2 Del Method 05/03/25 14:45 66 133/53 L 05/03/25 14:30 66 143/51 H 05/03/25 14:15 66 133/55 L 05/03/25 13:56 69 146/60 H 05/03/25 13:48 98.4 F 69 18 138/57 L 99 05/03/25 12:00 60 05/03/25 12:00 97.6 F 65 17 133/55 L 97 05/03/25 08:47 78 05/03/25 08:00 63 05/03/25 08:00 97.9 F 68 17 117/99 H 100 05/03/25 05:42 98.4 F 66 17 127/63 93 05/03/25 04:00 63 05/03/25 00:00 70 05/03/25 00:00 99.0 F 71 15 133/59 L 98 05/02/25 20:48 Room Air 05/02/25 20:48 72 05/02/25 20:00 75 05/02/25 20:00 98.2 F 74 18 125/42 L 95 Intake/Output Intake/Output: Intake & Output 04/30/25 05/01/25 05/02/25 05/03/25 23:59 23:59 23:59 23:59 Intake Total 1150 820 Output Total 0 Balance 1150 820 Meds/Results Medications: Active Medications Generic Name Dose Route Start Last Admin Trade Name Freq PRN Reason Stop Dose Admin Acetaminophen 650 mg 05/02/25 07:33 Acetaminophen 325 Mg Tablet PO Q6H PRN Pain Aspirin 81 mg 05/02/25 09:00 05/03/25 08:48 Aspirin 81 Mg Chewable Tablet PO 81 mg DAILY SOL Administration Atorvastatin Calcium 20 mg 05/02/25 18:00 05/02/25 17:34 Atorvastatin 20 Mg Tablet PO 20 mg QPM SOL Administration Benztropine Mesylate 2 mg 05/02/25 21:00 05/02/25 20:46 Benztropine Mesylate 1 Mg Tablet PO 2 mg HS SOL Administration Calcitriol 0.25 mcg 05/02/25 09:00 05/03/25 08:48 Calcitriol 0.25 Mcg Capsule PO 0.25 mcg DAILY SOL Administration Carvedilol 6.25 mg 05/02/25 09:00 05/03/25 08:47 Carvedilol 6.25 Mg Tablet PO 6.25 mg Q12H SOL Administration Dextrose 12.5 gm 05/02/25 07:34 Dextrose 50% 25 Gm/50 Ml Syringe IV PUSH PRN PRN Hypoglycemia Protocol Epoetin Lucius-epbx 10,000 units 05/03/25 18:34 05/03/25 15:52 Epoetin Lucius-Epbx 10,000 Units/Ml Vial IV PUSH 05/03/25 18:35 10,000 units ONCE ONE Administration Gabapentin 100 mg 05/03/25 21:00 Gabapentin 100 Mg Capsule PO [id number] SOL Glucagon 1 mg 05/02/25 07:34 Glucagon For Inj 1 Mg Vial IM PRN PRN Hypoglycemia Protocol Glucose 15 gm 05/02/25 07:34 Glucose Oral Gel 15 Gm Of Glucse In 37.5 Gm Tube PO PRN PRN Hypoglycemia Protocol Heparin Sodium (Porcine) 5,000 units 05/02/25 21:00 05/03/25 08:48 Heparin Sodium 5,000 Units/Ml Vial SUB-Q 5,000 units Q12HR SOL Administration Hydralazine HCl 25 mg 05/02/25 09:00 05/03/25 12:29 Hydralazine Hcl 25 Mg Tablet PO 25 mg TID SOL Administration Dextrose 1,000 mls @ 100 mls/hr 05/02/25 07:34 Dextrose 5% 1,000 Ml IVPB PRN PRN Hypoglycemia Protocol Albumin Human 50 mls @ 999 mls/hr 05/03/25 06:34 Albutein IVPB 06/02/25 06:33 Q10M PRN HYPOTENSION Insulin Aspart 2 - 5 units 05/02/25 08:00 05/03/25 11:24 Insulin Aspart (*Bkc) 100 Units/Ml SUB-Q 4 units TIDWM SOL Administration Protocol Insulin Glargine 11 units 05/03/25 21:00 Insulin Glargine (*Bkc) 100 Units/Ml SUB-Q HS SOL Levetiracetam 250 mg/ 750 mg 05/02/25 09:00 05/03/25 08:47 Levetiracetam 500 mg PO 750 mg Q12HR SOL Administration Lidocaine 2 patch 05/02/25 07:33 Lidocaine 5% Patch TOPICAL DAILY PRN Back Pain Pantoprazole Sodium 40 mg 05/02/25 09:00 05/03/25 08:48 Pantoprazole 40 Mg Tablet PO 40 mg DAILY SOL Administration Tramadol/Acetaminophen 1 tab 05/02/25 07:33 Tramadol/Acetaminophen (*Crx) (Ultracet) 37.5/325 Mg Tablet PO Q6H PRN Pain 4-6 Radiology Results: ITS Impressions Chest X-Ray 05/01/25 22:45 IMPRESSION: No acute pulmonary findings. Head CT 05/02/25 06:57 IMPRESSION: 1. No acute intracranial findings. Labs Labs: Laboratory Tests 05/03/25 05:26 05/03/25 05:26 Calcium 9.1 Total Bilirubin 0.4 AST 16 ALT 12 Alkaline Phosphatase 92 Total Protein 6.6 Albumin 3.4 L Hep Bs Antigen Negative Hep Bs Antibody Positive
[2025-05-03] MEDS: EPOETIN ALFA-EPBX 10,000 UNITS/ML VIAL 10000 UNITS IV PUSH (15:52)
--- NOTE | 2025-05-03 15:53 | PCNEURO ---
EEG to be completed tomorrow morning.
[2025-05-03] MEDS: ATORVASTATIN 20 MG TABLET PO (18:05)
[2025-05-03] MEDS: BENZTROPINE MESYLATE 1 MG TABLET 2 MG PO (21:01)
[2025-05-03] MEDS: INSULIN GLARGINE (*BKC) 100 UNITS/ML 11 UNITS SUB-Q (21:15)
[2025-05-03] MEDS: GABAPENTIN 100 MG CAPSULE PO (21:19)
[2025-05-04] VITALS (10 sets, daily range): BP systolic 128–153; BP diastolic 46–58; PULSE 65–72; RESP 14–20; TEMP 36.1–37.1; O2SAT 95–98
[2025-05-04 05:36] LABS: Hematocrit 28.4 % (37.0-47.0); Hemoglobin 8.8 g/dL (12.0-15.0); Mean Corpuscular HGB Conc 31.0 g/dl (32-36); Mean Corpuscular Hemoglobin 30.7 pg (26-34); Mean Corpuscular Volume 99.0 fl (80-100); Platelet Count Result 214 k/mm3 (150-375); Red Blood Count 2.87 M/mm3 (4.2-5.4); White Blood Count 9.9 K/mm3 (4.5-10.0)
[2025-05-04 05:49] LABS: Alanine Aminotransferase 13 U/L (6-35); Albumin Level 3.6 g/dL (3.5-5.1); Alkaline Phosphatase 93 U/L (38-126); Anion Gap 7 mmol/L (4-12); Aspartate Amino Transferase 21 U/L (14-36); Bilirubin,Total 0.3 mg/dL (0.2-1.3); Blood Urea Nitrogen 26 mg/dL (7-17); Calcium 9.0 mg/dL (8.4-10.2); Carbon Dioxide 29 mmol/L (22-30); Chloride 101 mmol/L (98-107); Estimated CRCL calculation 8 ml/min; Estimated Glomerular Filt Rate 9; Glucose 156 mg/dL (65-110); Potassium 4.2 mmol/L (3.4-5.0); Sodium 137 mmol/L (137-145); Total Protein 7.0 g/dL (6.3-8.2)
[2025-05-04] MEDS: ASPIRIN 81 MG CHEWABLE TABLET PO (08:09)
[2025-05-04] MEDS: levETIRAcetam Tablet 250 MG, levETIRAcetam Tablet 500 MG 750 MG PO ×2 (08:09→21:21)
[2025-05-04] MEDS: PANTOPRAZOLE 40 MG TABLET PO (08:09)
--- NOTE | 2025-05-04 09:55 | WNDPHOTO ---
PHOTO ONLY - See Nursing Notes and/ or assessments for documentation.
[2025-05-04] MEDS: INSULIN ASPART (*BKC) 100 UNITS/ML SUB-Q ×2 (11:48→16:52)
--- NOTE | 2025-05-04 12:46 | P.PNNP_ITS ---
Progress Note: A&P Assessment and Plan (1) End stage renal disease: Code(s): N18.6 - End stage renal disease Status: Chronic Assessment and Plan: * HD tomorrow * continue Thu/Thu/Thursday dialysis schedule while hospitalized * eventually transition back to home HD on discharge * follow electrolytes, volume status, and clearance * outpatient dialysis unit = [facility] * primary sales utility representative = Dr. Markie Ryan (2) Seizure-like activity: Code(s): R56.9 - Unspecified convulsions Status: Acute Assessment and Plan: * reported history but no outpatient medications for this * elevated lactic acid noted without evidence of infection suspicious for seizure * seizure precautions * Head CT negative * on Keppra * Neurology recommendations noted (3) Anemia: Qualifiers: Anemia type: unspecified type Qualified Code(s): D64.9 - Anemia, unspecified Code(s): D64.9 - Anemia, unspecified Status: Chronic Assessment and Plan: * due to ESRD * GARFIELD/Epogen with HD * check iron studies if worsens * follow trend of H/H (4) Congestive heart failure: Qualifiers: Heart failure type: diastolic Heart failure chronicity: chronic Q ualified Code(s): I50.32 - Chronic diastolic (congestive) heart failure Code(s): I50.9 - Heart failure, unspecified Status: Chronic Assessment and Plan: * compensated at this time * fluid removal with HD to maintain euvolemia * follow volume status (5) Hypertension: Qualifiers: Hypertension type: unspecified Qualified Code(s): I10 - Essential (primary) hypertension Code(s): I10 - Essential (primary) hypertension Status: Chronic Assessment and Plan: * reasonable control at this time * adjust medications as needed * follow trend of hemodynamics (6) Insulin dependent diabetes mellitus: Status: Chronic Assessment and Plan: * follow accu-cheks * glycemic control per hospitalist Will continue to follow. L Subjective Date/time seen: 05/04/25 12:46 Interval history: Follow-up for end stage renal disease on hemodialysis. Tolerated dialysis treatment yesterday without any issue or problems; no apparent distress noted at the time of my visit; no other specific complaints voiced; overall, states that she is feeling quite well and significantly better in comparison to admission. Exam 2 Narrative: General: elderly female in NAD Heart: normal S1 and S2; no rub Lungs: clear to auscultation Abdomen: soft, nontender, nondistended, positive bowel sounds Extremities: no cyanosis or clubbing; no edema Skin: warm and intact Objective Data Vital Signs Vital Signs: Vital Signs Temp Pulse Resp BP Pulse Ox O2 Del Method 05/04/25 12:00 66 05/04/25 11:20 97.4 F L 70 14 136/58 L 98 05/04/25 08:09 66 05/04/25 08:00 68 05/04/25 08:00 Room Air 05/04/25 08:00 98.7 F 72 16 148/56 H 96 05/04/25 04:00 98.4 F 66 20 142/48 H 97 05/04/25 04:00 66 05/04/25 00:00 67 05/04/25 00:00 98.3 F 68 18 137/46 L 97 Intake/Output Intake/Output: Intake & Output 05/01/25 05/02/25 05/03/25 05/04/25 23:59 23:59 23:59 23:59 Intake Total 7371 261 5049 Output Total 1400 Balance 1150 -580 1288 Meds/Results Medications: Active Medications Generic Name Dose Route Start Last Admin Trade Name Freq PRN Reason Stop Dose Admin Acetaminophen 650 mg 05/02/25 07:33 Acetaminophen 325 Mg Tablet PO Q6H PRN Pain Aspirin 81 mg 05/02/25 09:00 05/04/25 08:09 Aspirin 81 Mg Chewable Tablet PO 81 mg DAILY SOL Administration Atorvastatin Calcium 20 mg 05/02/25 18:00 05/04/25 17:20 Atorvastatin 20 Mg Tablet PO 20 mg QPM SOL Administration Benztropine Mesylate 2 mg 05/02/25 21:00 05/04/25 21:22 Benztropine Mesylate 1 Mg Tablet PO 2 mg HS SOL Administration Calcitriol 0.25 mcg 05/02/25 09:00 05/04/25 08:09 Calcitriol 0.25 Mcg Capsule PO 0.25 mcg DAILY SOL Administration Carvedilol 6.25 mg 05/02/25 09:00 05/04/25 21:22 Carvedilol 6.25 Mg Tablet PO 6.25 mg Q12H SOL Administration Dextrose 12.5 gm 05/02/25 07:34 Dextrose 50% 25 Gm/50 Ml Syringe IV PUSH PRN PRN Hypoglycemia Protocol Gabapentin 100 mg 05/03/25 21:00 05/03/25 21:19 Gabapentin 100 Mg Capsule PO 100 mg [id number] SOL Administration Glucagon 1 mg 05/02/25 07:34 Glucagon For Inj 1 Mg Vial IM PRN PRN Hypoglycemia Protocol Glucose 15 gm 05/02/25 07:34 Glucose Oral Gel 15 Gm Of Glucse In 37.5 Gm Tube PO PRN PRN Hypoglycemia Protocol Heparin Sodium (Porcine) 5,000 units 05/02/25 21:00 05/04/25 21:22 Heparin Sodium 5,000 Units/Ml Vial SUB-Q 5,000 units Q12HR SOL Administration Hydralazine HCl 25 mg 05/02/25 09:00 05/04/25 16:11 Hydralazine Hcl 25 Mg Tablet PO 25 mg TID SOL Administration Dextrose 1,000 mls @ 100 mls/hr 05/02/25 07:34 Dextrose 5% 1,000 Ml IVPB PRN PRN Hypoglycemia Protocol Albumin Human 50 mls @ 999 mls/hr 05/03/25 06:34 Albutein IVPB 06/02/25 06:33 Q10M PRN HYPOTENSION Insulin Aspart 2 - 5 units 05/02/25 08:00 05/04/25 16:52 Insulin Aspart (*Bkc) 100 Units/Ml SUB-Q 3 units TIDWM SOL Administration Protocol Insulin Glargine 11 units 05/03/25 21:00 05/04/25 21:23 Insulin Glargine (*Bkc) 100 Units/Ml SUB-Q 11 units HS SOL Administration Levetiracetam 250 mg/ 750 mg 05/02/25 09:00 05/04/25 21:21 Levetiracetam 500 mg PO 750 mg Q12HR SOL Administration Lidocaine 2 patch 05/02/25 07:33 Lidocaine 5% Patch TOPICAL DAILY PRN Back Pain Pantoprazole Sodium 40 mg 05/02/25 09:00 05/04/25 08:09 Pantoprazole 40 Mg Tablet PO 40 mg DAILY SOL Administration Tramadol/Acetaminophen 1 tab 05/02/25 07:33 Tramadol/Acetaminophen (*Crx) (Ultracet) 37.5/325 Mg Tablet PO Q6H PRN Pain 4-6 Radiology Results: ITS Impressions Chest X-Ray 05/01/25 22:45 IMPRESSION: No acute pulmonary findings. Head CT 05/02/25 06:57 IMPRESSION: 1. No acute intracranial findings. Labs Labs: Laboratory Tests 05/04/25 05:10 05/04/25 05:10 Calcium 9.0 Total Bilirubin 0.3 AST 21 ALT 13 Alkaline Phosphatase 93 Total Protein 7.0 Albumin 3.6 Microbiology 05/02/25 02:05 Blood Blood Culture - Preliminary 05/02/25 02:05 Blood Blood Culture - Preliminary 05/02/25 00:31 Urine Clean Catch - Final
--- NOTE | 2025-05-04 13:07 | P.PNIM_ITS ---
Progress Note: A&P Assessment and Plan (1) Seizure-like activity: Code(s): R56.9 - Unspecified convulsions Status: Acute Assessment and Plan: Per family, patient was about an hour and a half into her regular dialysis when her blood pressure dropped to the 80s/50s so it was stopped and she was given 300 mL of fluid. After this, she had vomiting x2 before approximately 1-2 minute episode of seizure-like activity. Ddx: seizure vs hypotension vs arrhythmia vs electrolyte imbalance - Family reports prior seizure like history though no antiseizure medications started at that time, does not follow neurology - Lactic elevated on admission at 4.9, furthering suspicion for seizure. Received IV fluids in the ED and now downtrending. No signs of infection. - Seizure precautions - Continue telemetry to evaluate for arrhythmias, tele reviewed and stable - Head CT showed no acute intracranial findings - EEG obtained, read pending - Patient was given a loading dose of 1500 mg Keppra in the ED. - ED provider discussed the case with Dr. Alonzo, neurology, who agreed with Keppra load, recommends Keppra 750 mg b.i.d. and will see the patient as a consult. Keppra 750 mg BID ordered - Neurology consulted continue keppra dosing - PT/OT recommending SNF. Care coordination following for placement. Patient sitting up in bed, AOx2 (baseline), following commands. (2) Hypertension: Qualifiers: Hypertension type: unspecified Qualified Code(s): I10 - Essential (primary) hypertension Code(s): I10 - Essential (primary) hypertension Status: Chronic Assessment and Plan: Chronic, continue home medications - carvedilol 6.25 mg daily and hydralazine 25 mg TID - blood pressures reviewed and stable, continue to monitor (3) Heart failure with preserved ejection fraction: Code(s): I50.30 - Unspecified diastolic (congestive) heart failure Status: Chronic Assessment and Plan: Chronic, does not appear in acute exacerbation - Current medications: carvedilol 6.25 mg q12, fluid removal with HD to maintain euvolemia - Chest XR: no acute pulmonary findings - Echo 06/28/24: [id number]% with grade I diastolic dysfunction - Monitor vital signs, I&Os, BUN/creatinine, daily weights, neuro status and patient is a fall risk - Monitor serum electrolytes, Keep serum Potassium>4 and serum Magnesium>2 and CBC Remains euvolemic. Continue to monitor. (4) Anemia: Code(s): D64.9 - Anemia, unspecified Status: Acute Assessment and Plan: Anemia of chronic disease secondary to ESRD GARFIELD/Epogen with HD per nephrology Denies active bleeding Trend H/H H/H remains stable. Continue to monitor with H/H on daily labs. (5) Diabetes: Qualifiers: Diabetes mellitus type: type 2 Diabetes mellitus longterm insulin use: unspecified ferry terminal agent insulin use status Diabetes mellitus complication status: with kidney complications Diabetes mellitus complication detail: with chronic kidney disease Chronic kidney disease stage: on chronic dialysis Qualified Code(s): E11.22 - Type 2 diabetes mellitus with diabetic chronic kidney disease; N18.6 - End stage renal disease; Z99.2 - Dependence on renal dialysis Code(s): E11.9 - Type 2 diabetes mellitus without complications Status: Chronic Assessment and Plan: - hypoglycemia protocol - POC blood glucose ACHS - home medication - lantus 14 units and lispro SSI - correct regimen ordered - lantus 11 units ( 20% of home dose given stricter diet during hospitalization) and SSI - A1C 6.5 in 11/10/24 Glucose reviewed and stable. (6) End stage renal disease on dialysis: Code(s): N18.6 - End stage renal disease; Z99.2 - Dependence on renal dialysis Status: Acute Assessment and Plan: Chronic HD on //Thu Nephrology consulted * continue dialysis schedule while hospitalized, eventually transition back to home HD on discharge * follow electrolytes, volume status, and clearance * outpatient dialysis unit = [facility] * primary doping supervisor = Dr. Markie Ryan Plan for dialysis today. (7) Parkinsons: Code(s): G20.A1 - Parkinson's disease without dyskinesia, without mention of fluctuations Status: Acute Assessment and Plan: Chronic, continue home medications Time Spent With Patient Time with patient: 25 - 35 minutes Subjective Date/time seen: 05/04/25 13:07 Interval history: 74 year old female with diabetes, ESRD on HD //thu, Parkinson's, diabetes, HFpEF, dementia, anemia, and schizophrenia presents to the hospital for seizure like activity. Patient is pleasant sitting up comfortably in bed. She remains at her baseline alert and oriented times 2 and is following commands. She is a she is feeling much better today and has returned to her baseline. She has no complaints denying chest pain, shortness a breath, palpitations, nausea vomiting, abdominal pain, and dizziness/lightheadedness. Called and updated patients daughter Dafne. All questions and concerns were answered at that time. Review of Systems Review of Systems: All systems reviewed & are unremarkable except as noted in HPI and below Exam Narrative: AF HR 70 RR 14 Spo2 98 BP 136/58 General: female in no acute respiratory distress who is nontoxic appearing,sitting up in bed HEENT: Normocephalic. Atraumatic. Pupils equal round reactive to light. Extraocular movement intact. Sclera clear and anicteric. No facial asymmetry. Chest: Lungs are clear to auscultation bilaterally. No wheezes or crackles. CV: Heart was regular rate and rhythm. Abd: Abdomen was soft. Nontender. Nondistended. Positive bowel sounds. No organomegaly or masses. Ext: No clubbing, cyanosis, or edema. DP pulses bilaterally. Neuro: Patient is alert and oriented x2 following commands. Much more alert today. Cranial nerves 2-12 are intact. Speech is clear. Objective Data Vital Signs Vital Signs: Vital Signs - 24 hr 05/03/25 13:48 05/03/25 13:56 05/03/25 14:15 Temperature 98.4 F Pulse Rate 69 69 66 Respiratory Rate 18 Blood Pressure 138/57 L 146/60 H 133/55 L Pulse Oximetry 99 Oxygen Delivery 05/03/25 14:30 05/03/25 14:45 05/03/25 15:00 Temperature Pulse Rate 66 66 66 Respiratory Rate Blood Pressure 143/51 H 133/53 L 136/50 L Pulse Oximetry Oxygen Delivery 05/03/25 15:15 05/03/25 15:30 05/03/25 15:45 Temperature Pulse Rate 66 64 63 Respiratory Rate Blood Pressure 124/46 L 122/44 L 125/50 L Pulse Oximetry Oxygen Delivery 05/03/25 16:00 05/03/25 16:00 05/03/25 16:15 Temperature Pulse Rate 63 64 64 Respiratory Rate Blood Pressure 132/49 L 130/51 L Pulse Oximetry Oxygen Delivery 05/03/25 16:30 05/03/25 16:45 05/03/25 17:00 Temperature Pulse Rate 67 70 71 Respiratory Rate Blood Pressure 121/52 L 106/51 L 119/46 L Pulse Oximetry Oxygen Delivery 05/03/25 17:15 05/03/25 17:31 05/03/25 17:35 Temperature 98.8 F Pulse Rate 75 75 76 Respiratory Rate 16 Blood Pressure 88/47 L 119/55 L 153/65 H Pulse Oximetry 99 Oxygen Delivery 05/03/25 18:21 05/03/25 20:00 05/03/25 20:00 Temperature 97.9 F Pulse Rate 76 76 Respiratory Rate 18 Blood Pressure 149/51 H Pulse Oximetry 98 97 Oxygen Delivery Room Air 05/03/25 21:00 05/03/25 21:00 05/04/25 00:00 Temperature 98.3 F Pulse Rate 68 68 Respiratory Rate 18 Blood Pressure 137/46 L Pulse Oximetry 97 Oxygen Delivery Room Air 05/04/25 00:00 05/04/25 04:00 05/04/25 04:00 Temperature 98.4 F Pulse Rate 67 66 66 Respiratory Rate 20 Blood Pressure 142/48 H Pulse Oximetry 97 Oxygen Delivery 05/04/25 08:00 05/04/25 08:00 05/04/25 08:00 Temperature 98.7 F Pulse Rate 72 68 Respiratory Rate 16 Blood Pressure 148/56 H Pulse Oximetry 96 Oxygen Delivery Room Air 05/04/25 08:09 05/04/25 11:20 Temperature 97.4 F L Pulse Rate 66 70 Respiratory Rate 14 Blood Pressure 136/58 L Pulse Oximetry 98 Oxygen Delivery Intake/Output Intake/Output: Intake & Output 05/01/25 05/02/25 05/03/25 05/04/25 23:59 23:59 23:59 23:59 Intake Total 1150 820 418 Output Total 1400 Balance 1150 -580 418 Meds/Results Medications: Active Medications Generic Name Dose Route Start Last Admin Trade Name Freq PRN Reason Stop Dose Admin Acetaminophen 650 mg 05/02/25 07:33 Acetaminophen 325 Mg Tablet PO Q6H PRN Pain Aspirin 81 mg 05/02/25 09:00 05/04/25 08:09 Aspirin 81 Mg Chewable Tablet PO 81 mg DAILY SOL Administration Atorvastatin Calcium 20 mg 05/02/25 18:00 05/03/25 18:05 Atorvastatin 20 Mg Tablet PO 20 mg QPM SOL Administration Benztropine Mesylate 2 mg 05/02/25 21:00 05/03/25 21:01 Benztropine Mesylate 1 Mg Tablet PO 2 mg HS SOL Administration Calcitriol 0.25 mcg 05/02/25 09:00 05/04/25 08:09 Calcitriol 0.25 Mcg Capsule PO 0.25 mcg DAILY SOL Administration Carvedilol 6.25 mg 05/02/25 09:00 05/04/25 08:09 Carvedilol 6.25 Mg Tablet PO 6.25 mg Q12H SOL Administration Dextrose 12.5 gm 05/02/25 07:34 Dextrose 50% 25 Gm/50 Ml Syringe IV PUSH PRN PRN Hypoglycemia Protocol Gabapentin 100 mg 05/03/25 21:00 05/03/25 21:19 Gabapentin 100 Mg Capsule PO 100 mg [id number] SOL Administration Glucagon 1 mg 05/02/25 07:34 Glucagon For Inj 1 Mg Vial IM PRN PRN Hypoglycemia Protocol Glucose 15 gm 05/02/25 07:34 Glucose Oral Gel 15 Gm Of Glucse In 37.5 Gm Tube PO PRN PRN Hypoglycemia Protocol Heparin Sodium (Porcine) 5,000 units 05/02/25 21:00 05/04/25 08:10 Heparin Sodium 5,000 Units/Ml Vial SUB-Q 5,000 units Q12HR SOL Administration Hydralazine HCl 25 mg 05/02/25 09:00 05/04/25 08:09 Hydralazine Hcl 25 Mg Tablet PO 25 mg TID SOL Administration Dextrose 1,000 mls @ 100 mls/hr 05/02/25 07:34 Dextrose 5% 1,000 Ml IVPB PRN PRN Hypoglycemia Protocol Albumin Human 50 mls @ 999 mls/hr 05/03/25 06:34 Albutein IVPB 06/02/25 06:33 Q10M PRN HYPOTENSION Insulin Aspart 2 - 5 units 05/02/25 08:00 05/04/25 11:48 Insulin Aspart (*Bkc) 100 Units/Ml SUB-Q 2 units TIDWM SOL Administration Protocol Insulin Glargine 11 units 05/03/25 21:00 05/03/25 21:15 Insulin Glargine (*Bkc) 100 Units/Ml SUB-Q 11 units HS SOL Administration Levetiracetam 250 mg/ 750 mg 05/02/25 09:00 05/04/25 08:09 Levetiracetam 500 mg PO 750 mg Q12HR SOL Administration Lidocaine 2 patch 05/02/25 07:33 Lidocaine 5% Patch TOPICAL DAILY PRN Back Pain Pantoprazole Sodium 40 mg 05/02/25 09:00 05/04/25 08:09 Pantoprazole 40 Mg Tablet PO 40 mg DAILY SOL Administration Tramadol/Acetaminophen 1 tab 05/02/25 07:33 Tramadol/Acetaminophen (*Crx) (Ultracet) 37.5/325 Mg Tablet PO Q6H PRN Pain 4-6 Radiology Results: ITS Impressions Chest X-Ray 05/01/25 22:45 IMPRESSION: No acute pulmonary findings. Head CT 05/02/25 06:57 IMPRESSION: 1. No acute intracranial findings. Labs Labs: Laboratory Results - last 24 hr 05/03/25 05/03/25 05/04/25 18:09 21:09 05:10 WBC 9.9 RBC 2.87 L Hgb 8.8 L Hct 28.4 L MCV 99.0 MCH 30.7 MCHC 31.0 L RDW 14.2 Plt Count 214 MPV 10.6 H Sodium 137 Potassium 4.2 Chloride 101 Carbon Dioxide 29 Anion Gap 7 BUN 26 H D Creatinine 4.69 H Estim Creat Clear Calc 8 Estimated GFR 9 L Glucose 156 H POC Capillary Glucose 167 H 166 H Calcium 9.0 Total Bilirubin 0.3 AST 21 ALT 13 Alkaline Phosphatase 93 Total Protein 7.0 Albumin 3.6 05/04/25 05/04/25 07:27 11:31 WBC RBC Hgb Hct MCV MCH MCHC RDW Plt Count MPV Sodium Potassium Chloride Carbon Dioxide Anion Gap BUN Creatinine Estim Creat Clear Calc Estimated GFR Glucose POC Capillary Glucose 165 H 212 H Calcium Total Bilirubin AST ALT Alkaline Phosphatase Total Protein Albumin Quality VTE Prophylaxis VTE prophylaxis: pharmacologic ordered
--- NOTE | 2025-05-04 16:46 | WPDNEUROLOGY ---
Neurology EEG Report General Information Date of Study: 05/04/25 TEST eeg DIAGNOSIS Seizure-like activity. CONDITION OF RECORDING Drowsy and asleep. EEG NUMBER [id number] CLINICAL HISTORY 74 years old female admitted to the hospital for the seizure-like activity during and after dialysis. EEG DESCRIPTION Background rhythm consists of low-voltage 15 to 18 hertz per 2nd beta activity admixed with low-voltage 6 to 7 hertz per 2nd theta activity and 3 to 4 hertz per 2nd delta activity. Bilateral symmetrical sleep spindles are noted during sleep activity in addition to the multiple movement artifacts. Hyperventilation not done. Photic stimulation not done. Non paroxysmal. Nonfocal. Nonlateralizing. IMPRESSION Abnormal record due to the presence of bihemispheric theta and delta activity with absence of normal posterior background rhythm. Study is compromised by the multiple movement artifacts. But there is no evidence of any paroxysmal activity during the entire tracing. Clinical correlation recommended this particular EEG cannot either rule out or document the seizure disorder.
[2025-05-04] MEDS: ATORVASTATIN 20 MG TABLET PO (17:20)
[2025-05-04] MEDS: BENZTROPINE MESYLATE 1 MG TABLET 2 MG PO (21:22)
[2025-05-04] MEDS: INSULIN GLARGINE (*BKC) 100 UNITS/ML 11 UNITS SUB-Q (21:23)
[2025-05-05] VITALS (27 sets, daily range): BP systolic 78–154; BP diastolic 40–67; PULSE 60–71; RESP 16–20; TEMP 36.3–37; O2SAT 95–100
[2025-05-05 06:07] LABS: Hematocrit 27.6 % (37.0-47.0); Hemoglobin 8.5 g/dL (12.0-15.0); Mean Corpuscular HGB Conc 30.8 g/dl (32-36); Mean Corpuscular Hemoglobin 30.6 pg (26-34); Mean Corpuscular Volume 99.3 fl (80-100); Platelet Count Result 223 k/mm3 (150-375); Red Blood Count 2.78 M/mm3 (4.2-5.4); White Blood Count 9.0 K/mm3 (4.5-10.0)
[2025-05-05 06:40] LABS: Alanine Aminotransferase 13 U/L (6-35); Albumin Level 3.5 g/dL (3.5-5.1); Alkaline Phosphatase 102 U/L (38-126); Anion Gap 10 mmol/L (4-12); Aspartate Amino Transferase 19 U/L (14-36); Bilirubin,Total 0.3 mg/dL (0.2-1.3); Blood Urea Nitrogen 44 mg/dL (7-17); Calcium 9.5 mg/dL (8.4-10.2); Carbon Dioxide 26 mmol/L (22-30); Chloride 102 mmol/L (98-107); Estimated CRCL calculation 7 ml/min; Estimated Glomerular Filt Rate 7; Glucose 192 mg/dL (65-110); Potassium 4.3 mmol/L (3.4-5.0); Sodium 138 mmol/L (137-145); Total Protein 6.7 g/dL (6.3-8.2)
--- NOTE | 2025-05-05 07:59 | P.PNIM_ITS ---
Progress Note: A&P Assessment and Plan (1) Seizure-like activity: Code(s): R56.9 - Unspecified convulsions Status: Acute Assessment and Plan: Per family, patient was about an hour and a half into her regular dialysis when her blood pressure dropped to the 80s/50s so it was stopped and she was given 300 mL of fluid. After this, she had vomiting x2 before approximately 1-2 minute episode of seizure-like activity. Ddx: seizure vs hypotension vs arrhythmia vs electrolyte imbalance - Family reports prior seizure like history though no antiseizure medications started at that time, does not follow neurology - Lactic elevated on admission at 4.9, furthering suspicion for seizure. Received IV fluids in the ED and now downtrending. No signs of infection. - Seizure precautions - Continue telemetry to evaluate for arrhythmias, tele reviewed and stable - Head CT showed no acute intracranial findings - EEG obtained, read pending - Patient was given a loading dose of 1500 mg Keppra in the ED. - Neurology consulted Continue keppra 750 mg BID - PT/OT recommending SNF. Care coordination following for placement. 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 insulin use: unspecified snf insulin use status Diabetes mellitus type: type 2 Qualified Code(s): E11.22 - Type 2 diabetes mellitus with diabetic chronic kidney disease; N18.6 - End stage renal disease; Z99.2 - Dependence on renal dialysis Code(s): E11.9 - Type 2 diabetes mellitus without complications Status: Chronic Assessment and Plan: - hypoglycemia protocol - POC blood glucose ACHS - home medication - lantus 14 units and lispro SSI - correct regimen ordered - lantus 11 units ( 20% of home dose given stricter diet during hospitalization) and SSI - A1C 6.5 in 11/10/24 Patient now having elevated glucose levels into the high 300 to low 400s likely because her appetite has improved since admission. Will continue the lantus 11 units, change patients SSI to moderate, and start patient on 5 units TIDWM. Continue to closely monitor glucose levels. (3) Anemia: Code(s): D64.9 - Anemia, unspecified Status: Acute Assessment and Plan: Anemia of chronic disease secondary to ESRD GARFIELD/Epogen with HD per nephrology Denies active bleeding Trend H/H H/H remains stable. Continue to monitor with H/H on daily labs. (4) Heart failure with preserved ejection fraction: Code(s): I50.30 - Unspecified diastolic (congestive) heart failure Status: Chronic Assessment and Plan: Chronic, does not appear in acute exacerbation - Current medications: carvedilol 6.25 mg q12, fluid removal with HD to maintain euvolemia - Chest XR: no acute pulmonary findings - Echo 06/28/24: CYSF14-22% with grade I diastolic dysfunction - Monitor vital signs, I&Os, BUN/creatinine, daily weights, neuro status and patient is a fall risk - Monitor serum electrolytes, Keep serum Potassium>4 and serum Magnesium>2 and CBC Remains euvolemic. Continue to monitor. (5) Hypertension: Qualifiers: Hypertension type: unspecified Qualified Code(s): I10 - Essential ( primary) hypertension Code(s): I10 - Essential (primary) hypertension Status: Chronic Assessment and Plan: Chronic, continue home medications - carvedilol 6.25 mg daily and hydralazine 25 mg TID - blood pressures reviewed and stable, continue to monitor (6) End stage renal disease on dialysis: Code(s): N18.6 - End stage renal disease; Z99.2 - Dependence on renal dialysis Status: Acute Assessment and Plan: Chronic HD on //Thu Nephrology consulted * continue dialysis schedule while hospitalized, eventually transition back to home HD on discharge * follow electrolytes, volume status, and clearance * outpatient dialysis unit = [facility] * primary director multiple sclerosis center = Dr. Markie Ryan (7) Parkinsons: Code(s): G20.A1 - Parkinson's disease without dyskinesia, without mention of fluctuations Status: Acute Assessment and Plan: Chronic, continue home medications Time Spent With Patient Time with patient: 25 - 35 minutes Subjective Date/time seen: 05/05/25 07:59 Interval history: 74 year old female with diabetes, ESRD on HD //thu, Parkinson's, diabetes, HFpEF, dementia, anemia, and schizophrenia presents to the hospital for seizure like activity. Patient is pleasant lying in bed receiving dialysis. She has no complaints denying chest pain, palpitations, shortness of breath, nausea/vomiting and abdominal pain. Review of Systems Review of Systems: All systems reviewed & are unremarkable except as noted in HPI and below Exam Narrative: AF HR 66 RR 18 SPO2 99 BP 116/58 General: female in no acute respiratory distress who is nontoxic appearing, lying semirecumbent in bed receiving dialysis HEENT: Extraocular movement intact. Sclera clear and anicteric. No facial asymmetry. Chest: Lungs are clear to auscultation bilaterally. No wheezes or crackles. CV: Heart was regular rate and rhythm. Abd: Abdomen was soft. Nontender. Nondistended. Positive bowel sounds. No organomegaly or masses. Ext: No clubbing, cyanosis, or edema. DP pulses bilaterally. Neuro: Patient is alert and oriented x2 following commands. Speech is clear. Objective Data Vital Signs Vital Signs: Vital Signs - 24 hr 05/04/25 08:00 05/04/25 08:00 05/04/25 08:00 Temperature 98.7 F Pulse Rate 72 68 Respiratory Rate 16 Blood Pressure 148/56 H Pulse Oximetry 96 Oxygen Delivery Room Air 05/04/25 08:09 05/04/25 11:20 05/04/25 12:00 Temperature 97.4 F L Pulse Rate 66 70 66 Respiratory Rate 14 Blood Pressure 136/58 L Pulse Oximetry 98 Oxygen Delivery 05/04/25 16:00 05/04/25 16:00 05/04/25 20:00 Temperature 96.9 F L 98.3 F Pulse Rate 68 66 67 Respiratory Rate 20 16 Blood Pressure 141/53 H 128/51 L Pulse Oximetry 97 95 Oxygen Delivery 05/04/25 20:00 05/04/25 21:22 05/04/25 21:22 Temperature Pulse Rate 66 65 Respiratory Rate Blood Pressure Pulse Oximetry Oxygen Delivery Room Air 05/04/25 21:40 05/05/25 00:00 05/05/25 00:00 Temperature 98.2 F Pulse Rate 64 64 Respiratory Rate 20 Blood Pressure 153/56 H 145/47 H Pulse Oximetry 96 Oxygen Delivery 05/05/25 04:00 05/05/25 04:00 Temperature 98.4 F Pulse Rate 62 71 Respiratory Rate 18 Blood Pressure 142/48 H Pulse Oximetry 95 Oxygen Delivery Intake/Output Intake/Output: Intake & Output 05/02/25 05/03/25 05/04/25 05/05/25 23:59 23:59 23:59 23:59 Intake Total 9826 880 2026 250 Output Total 1400 Balance 1150 -580 1288 250 Meds/Results Medications: Active Medications Generic Name Dose Route Start Last Admin Trade Name Lisa PRN Reason Stop Dose Admin Acetaminophen 650 mg 05/02/25 07:33 Acetaminophen 325 Mg Tablet PO Q6H PRN Pain Aspirin 81 mg 05/02/25 09:00 05/04/25 08:09 Aspirin 81 Mg Chewable Tablet PO 81 mg DAILY SOL Administration Atorvastatin Calcium 20 mg 05/02/25 18:00 05/04/25 17:20 Atorvastatin 20 Mg Tablet PO 20 mg QPM SOL Administration Benztropine Mesylate 2 mg 05/02/25 21:00 05/04/25 21:22 Benztropine Mesylate 1 Mg Tablet PO 2 mg HS SOL Administration Calcitriol 0.25 mcg 05/02/25 09:00 05/04/25 08:09 Calcitriol 0.25 Mcg Capsule PO 0.25 mcg DAILY SOL Administration Carvedilol 6.25 mg 05/02/25 09:00 05/04/25 21:22 Carvedilol 6.25 Mg Tablet PO 6.25 mg Q12H SOL Administration Dextrose 12.5 gm 05/02/25 07:34 Dextrose 50% 25 Gm/50 Ml Syringe IV PUSH PRN PRN Hypoglycemia Protocol Epoetin Lucius-epbx 10,000 units 05/05/25 18:24 Epoetin Lucius-Epbx 10,000 Units/Ml Vial IV PUSH 05/05/25 18:25 ONCE ONE Gabapentin 100 mg 05/03/25 21:00 05/03/25 21:19 Gabapentin 100 Mg Capsule PO 100 mg [id number] SOL Administration Glucagon 1 mg 05/02/25 07:34 Glucagon For Inj 1 Mg Vial IM PRN PRN Hypoglycemia Protocol Glucose 15 gm 05/02/25 07:34 Glucose Oral Gel 15 Gm Of Glucse In 37.5 Gm Tube PO PRN PRN Hypoglycemia Protocol Heparin Sodium (Porcine) 5,000 units 05/02/25 21:00 05/04/25 21:22 Heparin Sodium 5,000 Units/Ml Vial SUB-Q 5,000 units Q12HR SOL Administration Hydralazine HCl 25 mg 05/02/25 09:00 05/04/25 16:11 Hydralazine Hcl 25 Mg Tablet PO 25 mg TID SOL Administration Dextrose 1,000 mls @ 100 mls/hr 05/02/25 07:34 Dextrose 5% 1,000 Ml IVPB PRN PRN Hypoglycemia Protocol Albumin Human 50 mls @ 999 mls/hr 05/03/25 06:34 Albutein IVPB 06/02/25 06:33 Q10M PRN HYPOTENSION Insulin Aspart 10 units 05/05/25 07:55 Insulin Aspart (*Bkc) 100 Units/Ml SUB-Q 05/05/25 07:56 ONCE ONE Insulin Aspart 3 - 6 units 05/05/25 08:00 Insulin Aspart (*Bkc) 100 Units/Ml SUB-Q TIDWM SOL Protocol Insulin Glargine 11 units 05/03/25 21:00 05/04/25 21:23 Insulin Glargine (*Bkc) 100 Units/Ml SUB-Q 11 units HS SOL Administration Levetiracetam 250 mg/ 750 mg 05/02/25 09:00 05/04/25 21:21 Levetiracetam 500 mg PO 750 mg Q12HR SOL Administration Lidocaine 2 patch 05/02/25 07:33 Lidocaine 5% Patch TOPICAL DAILY PRN Back Pain Pantoprazole Sodium 40 mg 05/02/25 09:00 05/04/25 08:09 Pantoprazole 40 Mg Tablet PO 40 mg DAILY SOL Administration Tramadol/Acetaminophen 1 tab 05/02/25 07:33 Tramadol/Acetaminophen (*Crx) (Ultracet) 37.5/325 Mg Tablet PO Q6H PRN Pain 4-6 Radiology Results: ITS Impressions Chest X-Ray 05/01/25 22:45 IMPRESSION: No acute pulmonary findings. Head CT 05/02/25 06:57 IMPRESSION: 1. No acute intracranial findings. Labs Labs: Laboratory Results - last 24 hr 05/04/25 05/04/25 05/04/25 11:31 16:14 20:15 WBC RBC Hgb Hct MCV MCH MCHC RDW Plt Count MPV Sodium Potassium Chloride Carbon Dioxide Anion Gap BUN Creatinine Estim Creat Clear Calc Estimated GFR Glucose POC Capillary Glucose 212 H 265 H 297 H Calcium Total Bilirubin AST ALT Alkaline Phosphatase Total Protein Albumin 05/04/25 05/05/25 05/05/25 21:26 05:27 07:37 WBC 9.0 RBC 2.78 L Hgb 8.5 L Hct 27.6 L MCV 99.3 MCH 30.6 MCHC 30.8 L RDW 14.4 Plt Count 223 MPV 10.8 H Sodium 138 Potassium 4.3 Chloride 102 Carbon Dioxide 26 Anion Gap 10 BUN 44 H D Creatinine 6.08 H Estim Creat Clear Calc 7 Estimated GFR 7 L Glucose 192 H POC Capillary Glucose 313 H 460 H Calcium 9.5 Total Bilirubin 0.3 AST 19 ALT 13 Alkaline Phosphatase 102 Total Protein 6.7 Albumin 3.5 Quality VTE Prophylaxis VTE prophylaxis: pharmacologic ordered
[2025-05-05] MEDS: ASPIRIN 81 MG CHEWABLE TABLET PO (08:20)
[2025-05-05] MEDS: INSULIN ASPART (*BKC) 100 UNITS/ML 10 UNITS SUB-Q (08:21)
[2025-05-05] MEDS: PANTOPRAZOLE 40 MG TABLET PO (08:22)
[2025-05-05] MEDS: levETIRAcetam Tablet 250 MG, levETIRAcetam Tablet 500 MG 750 MG PO ×2 (08:22→22:01)
[2025-05-05] MEDS: ALBUMIN HUMAN 25% 12.5 GM/50ML 50 ML IVPB (12:54)
[2025-05-05] MEDS: EPOETIN ALFA-EPBX 10,000 UNITS/ML VIAL 10000 UNITS IV PUSH (12:55)
[2025-05-05] MEDS: HEPARIN SODIUM, PORCINE 10,000 UNITS/10 ML VIAL 10000 UNITS (12:56)
--- NOTE | 2025-05-05 13:15 | P.PNNP_ITS ---
Progress Note: A&P Assessment and Plan (1) End stage renal disease: Code(s): N18.6 - End stage renal disease Status: Chronic Assessment and Plan: * HD tomorrow * continue Thu/Thu/Thursday dialysis schedule while hospitalized * eventually transition back to home HD on discharge * follow electrolytes, volume status, and clearance * outpatient dialysis unit = [facility] * primary superintendent geophysical laboratory = Dr. Markie Ryan (2) Seizure-like activity: Code(s): R56.9 - Unspecified convulsions Status: Acute Assessment and Plan: * reported history but no outpatient medications for this * elevated lactic acid noted without evidence of infection suspicious for seizure * seizure precautions * Head CT negative * on Keppra * Neurology recommendations noted (3) Anemia: Qualifiers: Anemia type: unspecified type Qualified Code(s): D64.9 - Anemia, unspecified Code(s): D64.9 - Anemia, unspecified Status: Chronic Assessment and Plan: * due to ESRD * GAR[facility]/Epogen with HD * check iron studies if worsens * follow trend of H/H (4) Congestive heart failure: Qualifiers: Heart failure type: diastolic Heart failure chronicity: chronic Q ualified Code(s): I50.32 - Chronic diastolic (congestive) heart failure Code(s): I50.9 - Heart failure, unspecified Status: Chronic Assessment and Plan: * compensated at this time * fluid removal with HD to maintain euvolemia * follow volume status (5) Hypertension: Qualifiers: Hypertension type: unspecified Qualified Code(s): I10 - Essential (primary) hypertension Code(s): I10 - Essential (primary) hypertension Status: Chronic Assessment and Plan: * reasonable control at this time * adjust medications as needed * follow trend of hemodynamics (6) Insulin dependent diabetes mellitus: Status: Chronic Assessment and Plan: * follow accu-cheks * glycemic control per hospitalist Will continue to follow. L Subjective Date/time seen: 05/05/25 13:15 Interval history: Follow-up for end stage renal disease on hemodialysis. Tolerating dialysis at the time of my visit (seen on HD at 1:05pm); appears to be doing reasonably well when seen; no acute complaints voiced; no issues/events overnight or earlier today; otherwise, shs states she feels quite well. Exam 2 Narrative: General: elderly female in [facility] Heart: normal S1 and S2; no rub Lungs: clear to auscultation Abdomen: soft, nontender, nondistended, positive bowel sounds Extremities: no cyanosis or clubbing; no edema Skin: warm and intact Objective Data Vital Signs Vital Signs: Vital Signs Temp Pulse Resp BP Pulse Ox O2 Del Method 05/05/25 13:13 60 88/45 L 05/05/25 13:00 60 90/50 L 05/05/25 12:45 60 82/46 L 05/05/25 12:30 63 92/58 L 05/05/25 12:15 63 79/44 L 05/05/25 12:00 69 05/05/25 12:00 63 78/43 L 05/05/25 11:45 61 101/54 L 05/05/25 11:30 63 123/54 L 05/05/25 11:15 61 102/48 L 05/05/25 11:00 63 91/48 L 05/05/25 10:45 64 96/49 L 05/05/25 10:30 63 142/61 H 05/05/25 10:15 63 153/63 H 05/05/25 09:53 63 132/58 L 05/05/25 09:25 97.9 F 63 18 135/67 99 05/05/25 09:20 97.9 F 63 18 135/67 99 05/05/25 08:42 Room Air 05/05/25 08:35 Room Air 05/05/25 08:20 63 05/05/25 08:00 69 05/05/25 08:00 97.4 F L 69 16 154/54 H 99 05/05/25 04:00 98.4 F 71 18 142/48 H 95 05/05/25 04:00 62 05/05/25 00:00 98.2 F 64 20 145/47 H 96 05/05/25 00:00 64 05/04/25 21:40 153/56 H 05/04/25 21:22 Room Air 05/04/25 21:22 65 05/04/25 20:00 66 05/04/25 20:00 98.3 F 67 16 128/51 L 95 Intake/Output Intake/Output: Intake & Output 05/02/25 05/03/25 05/04/25 05/05/25 23:59 23:59 23:59 23:59 Intake Total 2949 292 8192 250 Output Total 1400 2000 Balance 1150 -655 1288 -2440 Meds/Results Medications: Active Medications Generic Name Dose Route Start Last Admin Trade Name Freq PRN Reason Stop Dose Admin Acetaminophen 650 mg 05/02/25 07:33 Acetaminophen 325 Mg Tablet PO Q6H PRN Pain Aspirin 81 mg 05/02/25 09:00 05/05/25 08:20 Aspirin 81 Mg Chewable Tablet PO 81 mg DAILY SOL Administration Atorvastatin Calcium 20 mg 05/02/25 18:00 05/05/25 16:49 Atorvastatin 20 Mg Tablet PO 20 mg QPM SOL Administration Benztropine Mesylate 2 mg 05/02/25 21:00 05/04/25 21:22 Benztropine Mesylate 1 Mg Tablet PO 2 mg HS SOL Administration Calcitriol 0.25 mcg 05/02/25 09:00 05/05/25 14:36 Calcitriol 0.25 Mcg Capsule PO 0.25 mcg DAILY SOL Administration Carvedilol 6.25 mg 05/02/25 09:00 05/05/25 08:20 Carvedilol 6.25 Mg Tablet PO 6.25 mg Q12H SOL Administration Dextrose 12.5 gm 05/02/25 07:34 Dextrose 50% 25 Gm/50 Ml Syringe IV PUSH PRN PRN Hypoglycemia Protocol Epoetin Lucius-epbx 10,000 units 05/05/25 18:24 05/05/25 12:55 Epoetin Lucius-Epbx 10,000 Units/Ml Vial IV PUSH 05/05/25 18:25 10,000 units ONCE ONE Administration Gabapentin 100 mg 05/03/25 21:00 05/03/25 21:19 Gabapentin 100 Mg Capsule PO 100 mg [id number] SOL Administration Glucagon 1 mg 05/02/25 07:34 Glucagon For Inj 1 Mg Vial IM PRN PRN Hypoglycemia Protocol Glucose 15 gm 05/02/25 07:34 Glucose Oral Gel 15 Gm Of Glucse In 37.5 Gm Tube PO PRN PRN Hypoglycemia Protocol Heparin Sodium (Porcine) 5,000 units 05/02/25 21:00 05/05/25 08:22 Heparin Sodium 5,000 Units/Ml Vial SUB-Q 5,000 units Q12HR SOL Administration Hydralazine HCl 25 mg 05/02/25 09:00 05/05/25 16:49 Hydralazine Hcl 25 Mg Tablet PO 25 mg TID SOL Administration Dextrose 1,000 mls @ 100 mls/hr 05/02/25 07:34 Dextrose 5% 1,000 Ml IVPB PRN PRN Hypoglycemia Protocol Albumin Human 50 mls @ 999 mls/hr 05/03/25 06:34 05/05/25 12:54 Albutein IVPB 06/02/25 06:33 999 mls/hr Q10M PRN Administration HYPOTENSION Insulin Aspart 3 - 6 units 05/05/25 08:00 05/05/25 16:43 Insulin Aspart (*Bkc) 100 Units/Ml SUB-Q Not Given TIDWM SOL Protocol Insulin Aspart 4 units 05/05/25 17:00 05/05/25 16:56 Insulin Aspart (*Bkc) 100 Units/Ml SUB-Q 4 units TIDWM SOL Administration Insulin Glargine 11 units 05/03/25 21:00 05/04/25 21:23 Insulin Glargine (*Bkc) 100 Units/Ml SUB-Q 11 units HS SOL Administration Levetiracetam 250 mg/ 750 mg 05/02/25 09:00 05/05/25 08:22 Levetiracetam 500 mg PO 750 mg Q12HR SOL Administration Lidocaine 2 patch 05/02/25 07:33 Lidocaine 5% Patch TOPICAL DAILY PRN Back Pain Pantoprazole Sodium 40 mg 05/02/25 09:00 05/05/25 08:22 Pantoprazole 40 Mg Tablet PO 40 mg DAILY SOL Administration Tramadol/Acetaminophen 1 tab 05/02/25 07:33 Tramadol/Acetaminophen (*Crx) (Ultracet) 37.5/325 Mg Tablet PO Q6H PRN Pain 4-6 Radiology Results: ITS Impressions Chest X-Ray 05/01/25 22:45 IMPRESSION: No acute pulmonary findings. Head CT 05/02/25 06:57 IMPRESSION: 1. No acute intracranial findings. Labs Labs: Laboratory Tests 05/05/25 05:27 05/05/25 05:27 Calcium 9.5 Total Bilirubin 0.3 AST 19 ALT 13 Alkaline Phosphatase 102 Total Protein 6.7 Albumin 3.5 Microbiology 05/02/25 02:05 Blood Blood Culture - Preliminary 05/02/25 02:05 Blood Blood Culture - Preliminary
[2025-05-05] MEDS: ATORVASTATIN 20 MG TABLET PO (16:49)
[2025-05-05] MEDS: INSULIN ASPART (*BKC) 100 UNITS/ML SUB-Q (16:56)
[2025-05-05] MEDS: INSULIN GLARGINE (*BKC) 100 UNITS/ML 11 UNITS SUB-Q (21:57)
[2025-05-05] MEDS: BENZTROPINE MESYLATE 1 MG TABLET 2 MG PO (21:57)
[2025-05-05] MEDS: GABAPENTIN 100 MG CAPSULE PO (22:06)
[2025-05-06] VITALS (11 sets, daily range): BP systolic 90–129; BP diastolic 37–58; PULSE 61–70; RESP 16; TEMP 35.8–36.8; O2SAT 95–100
[2025-05-06 06:05] LABS: Hematocrit 31.0 % (37.0-47.0); Hemoglobin 9.4 g/dL (12.0-15.0); Mean Corpuscular HGB Conc 30.3 g/dl (32-36); Mean Corpuscular Hemoglobin 30.6 pg (26-34); Mean Corpuscular Volume 101.0 fl (80-100); Platelet Count Result 225 k/mm3 (150-375); Red Blood Count 3.07 M/mm3 (4.2-5.4); White Blood Count 9.8 K/mm3 (4.5-10.0)
[2025-05-06 06:30] LABS: Alanine Aminotransferase 18 U/L (6-35); Albumin Level 3.8 g/dL (3.5-5.1); Alkaline Phosphatase 87 U/L (38-126); Anion Gap 12 mmol/L (4-12); Aspartate Amino Transferase 31 U/L (14-36); Bilirubin,Total 0.3 mg/dL (0.2-1.3); Blood Urea Nitrogen 32 mg/dL (7-17); Calcium 9.3 mg/dL (8.4-10.2); Carbon Dioxide 25 mmol/L (22-30); Chloride 98 mmol/L (98-107); Estimated CRCL calculation 8 ml/min; Estimated Glomerular Filt Rate 8; Glucose 189 mg/dL (65-110); Potassium 4.0 mmol/L (3.4-5.0); Sodium 135 mmol/L (137-145); Total Protein 7.1 g/dL (6.3-8.2)
[2025-05-06] MEDS: levETIRAcetam Tablet 250 MG, levETIRAcetam Tablet 500 MG 750 MG PO ×2 (08:28→21:03)
[2025-05-06] MEDS: PANTOPRAZOLE 40 MG TABLET PO (08:28)
[2025-05-06] MEDS: ASPIRIN 81 MG CHEWABLE TABLET PO (08:29)
[2025-05-06] MEDS: INSULIN ASPART (*BKC) 100 UNITS/ML SUB-Q ×6 (08:29→17:26)
--- NOTE | 2025-05-06 12:55 | P.PNNP_ITS ---
Progress Note: A&P Assessment and Plan (1) End stage renal disease: Code(s): N18.6 - End stage renal disease Status: Chronic Assessment and Plan: * HD yesterday * continue Thu/Thu/Thursday dialysis schedule while hospitalized * eventually transition back to home HD on discharge * follow electrolytes, volume status, and clearance * outpatient dialysis unit = [facility] * primary clinical medical transcriptionist = Dr. Markie Ryan (2) Seizure-like activity: Code(s): R56.9 - Unspecified convulsions Status: Acute Assessment and Plan: * reported history but no outpatient medications for this * elevated lactic acid noted without evidence of infection suspicious for seizure * seizure precautions * Head CT negative * on Keppra * Neurology recommendations noted (3) Anemia: Qualifiers: Anemia type: unspecified type Qualified Code(s): D64.9 - Anemia, unspecified Code(s): D64.9 - Anemia, unspecified Status: Chronic Assessment and Plan: * due to ESRD * GARFIELD/Epogen with HD * check iron studies if worsens * follow trend of H/H (4) Congestive heart failure: Qualifiers: Heart failure chronicity: chronic Heart failure type: diastolic Q ualified Code(s): I50.32 - Chronic diastolic (congestive) heart failure Code(s): I50.9 - Heart failure, unspecified Status: Chronic Assessment and Plan: * compensated at this time * fluid removal with HD to maintain euvolemia * follow volume status (5) Hypertension: Qualifiers: Hypertension type: unspecified Qualified Code(s): I10 - Essential (primary) hypertension Code(s): I10 - Essential (primary) hypertension Status: Chronic Assessment and Plan: * reasonable control at this time * adjust medications as needed * follow trend of hemodynamics (6) Insulin dependent diabetes mellitus: Status: Chronic Assessment and Plan: * follow accu-cheks * glycemic control per hospitalist Will continue to follow. L Subjective Date/time seen: 05/06/25 12:55 Interval history: Follow-up for end stage renal disease on hemodialysis. Tolerated dialysis treatment yesterday without any issues or problems; sitting up in chair watching TV at the time of my visit; no issues/events overnight or earlier this morning; report feeling pretty good. Exam 2 Narrative: General: elderly female in NAD Heart: normal S1 and S2; no rub Lungs: clear to auscultation Abdomen: soft, nontender, nondistended, positive bowel sounds Extremities: no cyanosis or clubbing; no edema Skin: no rash Objective Data Vital Signs Vital Signs: Vital Signs Temp Pulse Resp BP Pulse Ox O2 Del Method 05/06/25 12:00 97.0 F L 63 16 96/44 L 98 05/06/25 08:30 Room Air 05/06/25 08:29 62 05/06/25 08:00 66 05/06/25 08:00 97.2 F L 65 16 129/47 L 100 05/06/25 04:00 62 05/06/25 03:56 97.2 F L 62 16 113/37 L 96 05/06/25 01:00 106/58 L 05/06/25 00:00 67 05/06/25 00:00 98.3 F 67 16 94/41 L 96 05/05/25 20:00 67 05/05/25 20:00 Room Air 05/05/25 19:37 98.1 F 67 20 110/40 L 95 Intake/Output Intake/Output: Intake & Output 05/03/25 05/04/25 05/05/25 05/06/25 23:59 23:59 23:59 23:59 Intake Total 820 1288 490 778 Output Total 1400 2000 Balance -580 1288 -1510 778 Meds/Results Medications: Active Medications Generic Name Dose Route Start Last Admin Trade Name Sergeyq PRN Reason Stop Dose Admin Acetaminophen 650 mg 05/02/25 07:33 Acetaminophen 325 Mg Tablet PO Q6H PRN Pain Aspirin 81 mg 05/02/25 09:00 05/06/25 08:29 Aspirin 81 Mg Chewable Tablet PO 81 mg DAILY SOL Administration Atorvastatin Calcium 20 mg 05/02/25 18:00 05/05/25 16:49 Atorvastatin 20 Mg Tablet PO 20 mg QPM SOL Administration Benztropine Mesylate 2 mg 05/02/25 21:00 05/05/25 21:57 Benztropine Mesylate 1 Mg Tablet PO 2 mg HS SOL Administration Calcitriol 0.25 mcg 05/02/25 09:00 05/06/25 08:29 Calcitriol 0.25 Mcg Capsule PO 0.25 mcg DAILY SOL Administration Carvedilol 6.25 mg 05/02/25 09:00 05/06/25 08:29 Carvedilol 6.25 Mg Tablet PO 6.25 mg Q12H SOL Administration Dextrose 12.5 gm 05/02/25 07:34 Dextrose 50% 25 Gm/50 Ml Syringe IV PUSH PRN PRN Hypoglycemia Protocol Gabapentin 100 mg 05/03/25 21:00 05/05/25 22:06 Gabapentin 100 Mg Capsule PO 100 mg [id number] SOL Administration Glucagon 1 mg 05/02/25 07:34 Glucagon For Inj 1 Mg Vial IM PRN PRN Hypoglycemia Protocol Glucose 15 gm 05/02/25 07:34 Glucose Oral Gel 15 Gm Of Glucse In 37.5 Gm Tube PO PRN PRN Hypoglycemia Protocol Heparin Sodium (Porcine) 5,000 units 05/02/25 21:00 05/06/25 08:29 Heparin Sodium 5,000 Units/Ml Vial SUB-Q 5,000 units Q12HR SOL Administration Hydralazine HCl 25 mg 05/02/25 09:00 05/06/25 17:25 Hydralazine Hcl 25 Mg Tablet PO 25 mg TID SOL Administration Dextrose 1,000 mls @ 100 mls/hr 05/02/25 07:34 Dextrose 5% 1,000 Ml IVPB PRN PRN Hypoglycemia Protocol Albumin Human 50 mls @ 999 mls/hr 05/03/25 06:34 05/05/25 12:54 Albutein IVPB 06/02/25 06:33 999 mls/hr Q10M PRN Administration HYPOTENSION Insulin Aspart 3 - 6 units 05/05/25 08:00 05/06/25 17:25 Insulin Aspart (*Bkc) 100 Units/Ml SUB-Q 4 units TIDWM SOL Administration Protocol Insulin Aspart 4 units 05/05/25 17:00 05/06/25 17:26 Insulin Aspart (*Bkc) 100 Units/Ml SUB-Q 4 units TIDWM SOL Administration Insulin Glargine 11 units 05/03/25 21:00 05/05/25 21:57 Insulin Glargine (*Bkc) 100 Units/Ml SUB-Q 11 units HS SOL Administration Levetiracetam 250 mg/ 750 mg 05/02/25 09:00 05/06/25 08:28 Levetiracetam 500 mg PO 750 mg Q12HR SOL Administration Lidocaine 2 patch 05/02/25 07:33 Lidocaine 5% Patch TOPICAL DAILY PRN Back Pain Pantoprazole Sodium 40 mg 05/02/25 09:00 05/06/25 08:28 Pantoprazole 40 Mg Tablet PO 40 mg DAILY SOL Administration Tramadol/Acetaminophen 1 tab 05/02/25 07:33 Tramadol/Acetaminophen (*Crx) (Ultracet) 37.5/325 Mg Tablet PO Q6H PRN Pain 4-6 Radiology Results: ITS Impressions Chest X-Ray 05/01/25 22:45 IMPRESSION: No acute pulmonary findings. Head CT 05/02/25 06:57 IMPRESSION: 1. No acute intracranial findings. Labs Labs: Laboratory Tests 05/06/25 05:43 05/06/25 05:43 Calcium 9.3 Total Bilirubin 0.3 AST 31 ALT 18 Alkaline Phosphatase 87 Total Protein 7.1 Albumin 3.8 Microbiology 05/02/25 02:05 Blood Blood Culture - Preliminary 05/02/25 02:05 Blood Blood Culture - Preliminary
--- NOTE | 2025-05-06 13:24 | P.PNIM_ITS ---
Progress Note: A&P Assessment and Plan (1) Seizure-like activity: Code(s): R56.9 - Unspecified convulsions Status: Acute Assessment and Plan: Per family, patient was about an hour and a half into her regular dialysis when her blood pressure dropped to the 80s/50s so it was stopped and she was given 300 mL of fluid. After this, she had vomiting x2 before approximately 1-2 minute episode of seizure-like activity. Ddx: seizure vs hypotension vs arrhythmia vs electrolyte imbalance - Family reports prior seizure like history though no antiseizure medications started at that time, does not follow neurology - Lactic elevated on admission at 4.9, furthering suspicion for seizure. Received IV fluids in the ED and now downtrending. No signs of infection. - Seizure precautions - Continue telemetry to evaluate for arrhythmias, tele reviewed and stable - Head CT showed no acute intracranial findings - EEG obtained, read pending - Patient was given a loading dose of 1500 mg Keppra in the ED. - Neurology consulted Continue keppra 750 mg BID - PT/OT recommending SNF. Care coordination following for placement. (2) Diabetes: Qualifiers: Diabetes mellitus type: type 2 Diabetes mellitus intermediate accountant insulin use: unspecified intermediate accountant insulin use status Diabetes mellitus complication status: with kidney complications Diabetes mellitus complication detail: with chronic kidney disease Chronic kidney disease stage: on chronic dialysis Qualified Code(s): E11.22 - Type 2 diabetes mellitus with diabetic chronic kidney disease; N18.6 - End stage renal disease; Z99.2 - Dependence on renal dialysis Code(s): E11.9 - Type 2 diabetes mellitus without complications Status: Chronic Assessment and Plan: - hypoglycemia protocol - POC blood glucose ACHS - home medication - lantus 14 units and lispro SSI - correct regimen ordered - lantus 11 units ( 20% of home dose given stricter diet during hospitalization) and SSI - A1C 6.5 in 11/10/24 Patient now having elevated glucose levels into the high 300 to low 400s likely because her appetite has improved since admission. Will continue the lantus 11 units, change patients SSI to moderate, and start patient on 5 units TIDWM. Continue to closely monitor glucose levels. (3) Anemia: Code(s): D64.9 - Anemia, unspecified Status: Acute Assessment and Plan: Anemia of chronic disease secondary to ESRD [facility]/Epogen with HD per nephrology Denies active bleeding Trend H/H H/H remains stable. Continue to monitor with H/H on daily labs. 05/06- hg 9.4 today, continue to monitor (4) Heart failure with preserved ejection fraction: Code(s): I50.30 - Unspecified diastolic (congestive) heart failure Status: Chronic Assessment and Plan: Chronic, does not appear in acute exacerbation - Current medications: carvedilol 6.25 mg q12, fluid removal with HD to maintain euvolemia - Chest XR: no acute pulmonary findings - Echo 06/28/24: [id number]% with grade I diastolic dysfunction - Monitor vital signs, I&Os, BUN/creatinine, daily weights, neuro status and patient is a fall risk - Monitor serum electrolytes, Keep serum Potassium>4 and serum Magnesium>2 and CBC Remains euvolemic. Continue to monitor. (5) Hypertension: Qualifiers: Hypertension type: unspecified Qualified Code(s): I10 - Essential (primary) hypertension Code(s): I10 - Essential (primary) hypertension Status: Chronic Assessment and Plan: Chronic, continue home medications - carvedilol 6.25 mg daily and hydralazine 25 mg TID - blood pressures reviewed and stable, continue to monitor (6) End stage renal disease on dialysis: Code(s): N18.6 - End stage renal disease; Z99.2 - Dependence on renal dialysis Status: Acute Assessment and Plan: Chronic HD on //Thu Nephrology consulted * continue dialysis schedule while hospitalized, eventually transition back to home HD on discharge * follow electrolytes, volume status, and clearance * outpatient dialysis unit = [facility] * primary rn document improvement = Dr. Markie Ryan nephrology following for dialysis [id number] (7) Parkinsons: Code(s): G20.A1 - Parkinson's disease without dyskinesia, without mention of fluctuations Status: Acute Assessment and Plan: Chronic, continue home medications Time Spent With Patient Time with patient: 25 - 35 minutes Subjective Date/time seen: 05/06/25 13:24 Interval history: 74 year old female with diabetes, ESRD on HD //thu, Parkinson's, diabetes, HFpEF, dementia, anemia, and schizophrenia presents to the hospital for seizure like activity. Patient is pleasant lying in bed, she is confused but her baseline is a/o x2. She has no complaints denying chest pain, palpitations, shortness of breath, nausea/vomiting and abdominal pain.Nursing reports no acute concerns. Review of Systems Review of Systems: All systems reviewed & are unremarkable except as noted in HPI and below Exam Narrative: General: female in no acute respiratory distress who is nontoxic appearing, lying semirecumbent in bed HEENT: Extraocular movement intact. Sclera clear and anicteric. No facial asymmetry. Chest: Lungs are clear to auscultation bilaterally. No wheezes or crackles. CV: Heart was regular rate and rhythm. Abd: Abdomen was soft. Nontender. Nondistended. Positive bowel sounds. No organomegaly or masses. Ext: No clubbing, cyanosis, or edema. DP pulses bilaterally. Neuro: Patient is alert and oriented x2 following commands. Speech is clear. Const: General: comfortable Objective Data Vital Signs Vital Signs: Vital Signs - 24 hr 05/05/25 13:26 05/05/25 13:28 05/05/25 14:10 Temperature 98.0 F 97.8 F Pulse Rate 66 66 64 Respiratory Rate 18 16 Blood Pressure 91/51 L 116/58 L 115/44 L Pulse Oximetry 99 100 Oxygen Delivery 05/05/25 15:59 05/05/25 16:00 05/05/25 19:37 Temperature 97.7 F 98.1 F Pulse Rate 64 66 67 Respiratory Rate 16 20 Blood Pressure 108/57 L 110/40 L Pulse Oximetry 99 95 Oxygen Delivery 05/05/25 20:00 05/05/25 20:00 05/06/25 00:00 Temperature 98.3 F Pulse Rate 67 67 Respiratory Rate 16 Blood Pressure 94/41 L Pulse Oximetry 96 Oxygen Delivery Room Air 05/06/25 00:00 05/06/25 01:00 05/06/25 03:56 Temperature 97.2 F L Pulse Rate 67 62 Respiratory Rate 16 Blood Pressure 106/58 L 113/37 L Pulse Oximetry 96 Oxygen Delivery 05/06/25 04:00 05/06/25 08:00 05/06/25 08:00 Temperature 97.2 F L Pulse Rate 62 65 66 Respiratory Rate 16 Blood Pressure 129/47 L Pulse Oximetry 100 Oxygen Delivery 05/06/25 08:29 05/06/25 08:30 05/06/25 12:00 Temperature 97.0 F L Pulse Rate 62 63 Respiratory Rate 16 Blood Pressure 96/44 L Pulse Oximetry 98 Oxygen Delivery Room Air 05/06/25 13:09 Temperature Pulse Rate Respiratory Rate Blood Pressure 90/57 L Pulse Oximetry Oxygen Delivery Intake/Output Intake/Output: Intake & Output 05/03/25 05/04/25 05/05/25 05/06/25 23:59 23:59 23:59 23:59 Intake Total 820 1288 490 778 Output Total 1400 2000 Balance -580 1288 -1510 778 Meds/Results Medications: Active Medications Generic Name Dose Route Start Last Admin Trade Name Freq PRN Reason Stop Dose Admin Acetaminophen 650 mg 05/02/25 07:33 Acetaminophen 325 Mg Tablet PO Q6H PRN Pain Aspirin 81 mg 05/02/25 09:00 05/06/25 08:29 Aspirin 81 Mg Chewable Tablet PO 81 mg DAILY SOL Administration Atorvastatin Calcium 20 mg 05/02/25 18:00 05/05/25 16:49 Atorvastatin 20 Mg Tablet PO 20 mg QPM SOL Administration Benztropine Mesylate 2 mg 05/02/25 21:00 05/05/25 21:57 Benztropine Mesylate 1 Mg Tablet PO 2 mg HS SOL Administration Calcitriol 0.25 mcg 05/02/25 09:00 05/06/25 08:29 Calcitriol 0.25 Mcg Capsule PO 0.25 mcg DAILY SOL Administration Carvedilol 6.25 mg 05/02/25 09:00 05/06/25 08:29 Carvedilol 6.25 Mg Tablet PO 6.25 mg Q12H SOL Administration Dextrose 12.5 gm 05/02/25 07:34 Dextrose 50% 25 Gm/50 Ml Syringe IV PUSH PRN PRN Hypoglycemia Protocol Gabapentin 100 mg 05/03/25 21:00 05/05/25 22:06 Gabapentin 100 Mg Capsule PO 100 mg [id number]@2100 SOL Administration Glucagon 1 mg 05/02/25 07:34 Glucagon For Inj 1 Mg Vial IM PRN PRN Hypoglycemia Protocol Glucose 15 gm 05/02/25 07:34 Glucose Oral Gel 15 Gm Of Glucse In 37.5 Gm Tube PO PRN PRN Hypoglycemia Protocol Heparin Sodium (Porcine) 5,000 units 05/02/25 21:00 05/06/25 08:29 Heparin Sodium 5,000 Units/Ml Vial SUB-Q 5,000 units Q12HR SOL Administration Hydralazine HCl 25 mg 05/02/25 09:00 05/06/25 12:27 Hydralazine Hcl 25 Mg Tablet PO 25 mg TID SOL Administration Dextrose 1,000 mls @ 100 mls/hr 05/02/25 07:34 Dextrose 5% 1,000 Ml IVPB PRN PRN Hypoglycemia Protocol Albumin Human 50 mls @ 999 mls/hr 05/03/25 06:34 05/05/25 12:54 Albutein IVPB 06/02/25 06:33 999 mls/hr Q10M PRN Administration HYPOTENSION Insulin Aspart 3 - 6 units 05/05/25 08:00 05/06/25 12:27 Insulin Aspart (*Bkc) 100 Units/Ml SUB-Q 3 units TIDWM SOL Administration Protocol Insulin Aspart 4 units 05/05/25 17:00 05/06/25 12:27 Insulin Aspart (*Bkc) 100 Units/Ml SUB-Q 4 units TIDWM SOL Administration Insulin Glargine 11 units 05/03/25 21:00 05/05/25 21:57 Insulin Glargine (*Bkc) 100 Units/Ml SUB-Q 11 units HS SOL Administration Levetiracetam 250 mg/ 750 mg 05/02/25 09:00 05/06/25 08:28 Levetiracetam 500 mg PO 750 mg Q12HR SOL Administration Lidocaine 2 patch 05/02/25 07:33 Lidocaine 5% Patch TOPICAL DAILY PRN Back Pain Pantoprazole Sodium 40 mg 05/02/25 09:00 05/06/25 08:28 Pantoprazole 40 Mg Tablet PO 40 mg DAILY SOL Administration Tramadol/Acetaminophen 1 tab 05/02/25 07:33 Tramadol/Acetaminophen (*Crx) (Ultracet) 37.5/325 Mg Tablet PO Q6H PRN Pain 4-6 Radiology Results: ITS Impressions Chest X-Ray 05/01/25 22:45 IMPRESSION: No acute pulmonary findings. Head CT 05/02/25 06:57 IMPRESSION: 1. No acute intracranial findings. Labs Labs: Laboratory Results - last 24 hr 05/05/25 05/05/25 05/06/25 16:41 19:41 05:43 WBC 9.8 RBC 3.07 L Hgb 9.4 L Hct 31.0 L MCV 101.0 H MCH 30.6 MCHC 30.3 L RDW 14.4 Plt Count 225 MPV 10.3 Sodium 135 L Potassium 4.0 Chloride 98 Carbon Dioxide 25 Anion Gap 12 BUN 32 H D Creatinine 5.03 H Estim Creat Clear Calc 8 Estimated GFR 8 L Glucose 189 H POC Capillary Glucose 157 H 192 H Calcium 9.3 Total Bilirubin 0.3 AST 31 ALT 18 Alkaline Phosphatase 87 Total Protein 7.1 Albumin 3.8 05/06/25 05/06/25 07:58 12:09 WBC RBC Hgb Hct MCV MCH MCHC RDW Plt Count MPV Sodium Potassium Chloride Carbon Dioxide Anion Gap BUN Creatinine Estim Creat Clear Calc Estimated GFR Glucose POC Capillary Glucose 229 H 229 H Calcium Total Bilirubin AST ALT Alkaline Phosphatase Total Protein Albumin Quality VTE Prophylaxis VTE prophylaxis: pharmacologic ordered
[2025-05-06] MEDS: ATORVASTATIN 20 MG TABLET PO (18:46)
[2025-05-06] MEDS: BENZTROPINE MESYLATE 1 MG TABLET 2 MG PO (21:04)
[2025-05-06] MEDS: INSULIN GLARGINE (*BKC) 100 UNITS/ML 11 UNITS SUB-Q (21:08)
[2025-05-07] VITALS (8 sets, daily range): BP systolic 102–124; BP diastolic 40–72; PULSE 60–78; RESP 15–18; TEMP 36–36.8; O2SAT 94–99
[2025-05-07 06:35] LABS: Hematocrit 30.6 % (37.0-47.0); Hemoglobin 9.4 g/dL (12.0-15.0); Mean Corpuscular HGB Conc 30.7 g/dl (32-36); Mean Corpuscular Hemoglobin 31.0 pg (26-34); Mean Corpuscular Volume 101.0 fl (80-100); Platelet Count Result 238 k/mm3 (150-375); Red Blood Count 3.03 M/mm3 (4.2-5.4); White Blood Count 11.5 K/mm3 (4.5-10.0)
[2025-05-07 07:05] LABS: Alanine Aminotransferase 19 U/L (6-35); Albumin Level 3.9 g/dL (3.5-5.1); Alkaline Phosphatase 99 U/L (38-126); Anion Gap 14 mmol/L (4-12); Aspartate Amino Transferase 29 U/L (14-36); Bilirubin,Total 0.3 mg/dL (0.2-1.3); Blood Urea Nitrogen 51 mg/dL (7-17); Calcium 9.5 mg/dL (8.4-10.2); Carbon Dioxide 23 mmol/L (22-30); Chloride 98 mmol/L (98-107); Estimated CRCL calculation 6 ml/min; Estimated Glomerular Filt Rate 6; Glucose 139 mg/dL (65-110); Potassium 4.1 mmol/L (3.4-5.0); Sodium 135 mmol/L (137-145); Total Protein 7.3 g/dL (6.3-8.2)
[2025-05-07] MEDS: INSULIN ASPART (*BKC) 100 UNITS/ML SUB-Q ×4 (08:47→17:12)
[2025-05-07] MEDS: PANTOPRAZOLE 40 MG TABLET PO (08:48)
[2025-05-07] MEDS: ASPIRIN 81 MG CHEWABLE TABLET PO (08:48)
[2025-05-07] MEDS: levETIRAcetam Tablet 250 MG, levETIRAcetam Tablet 500 MG 750 MG PO ×2 (08:49→20:55)
--- NOTE | 2025-05-07 08:58 | P.PNIM_ITS ---
Progress Note: A&P Assessment and Plan (1) Seizure-like activity: Code(s): R56.9 - Unspecified convulsions Status: Acute Assessment and Plan: Per family, patient was about an hour and a half into her regular dialysis when her blood pressure dropped to the 80s/50s so it was stopped and she was given 300 mL of fluid. After this, she had vomiting x2 before approximately 1-2 minute episode of seizure-like activity. Ddx: seizure vs hypotension vs arrhythmia vs electrolyte imbalance - Family reports prior seizure like history though no antiseizure medications started at that time, does not follow neurology - Lactic elevated on admission at 4.9, furthering suspicion for seizure. Received IV fluids in the ED and now downtrending. No signs of infection. - Seizure precautions - Continue telemetry to evaluate for arrhythmias, tele reviewed and stable - Head CT showed no acute intracranial findings - EEG obtained, read pending - Patient was given a loading dose of 1500 mg Keppra in the ED. - Neurology consulted Continue keppra 750 mg BID - PT/OT recommending SNF. Care coordination following for placement. Remains on keppra as above. AOx3 (person, place, month) on assessment. Care coordination continues to follow for placement. 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: unspecified nursing home insulin use status Diabetes mellitus type: type 2 Qualified Code(s): E11.22 - Type 2 diabetes mellitus with diabetic chronic kidney disease; N18.6 - End stage renal disease; Z99.2 - Dependence on renal dialysis Code(s): E11.9 - Type 2 diabetes mellitus without complications Status: Chronic Assessment and Plan: - hypoglycemia protocol - POC blood glucose ACHS - home medication - lantus 14 units and lispro SSI - correct regimen ordered - lantus 11 units ( 20% of home dose given stricter diet during hospitalization) and SSI - A1C 6.5 in 11/10/24 Patient continues to have elevated glucose levels. Will increase her lantus to home dose of 14 units, continue the 4 units TIDWM and mod SSI. Continue to closely monitor glucose levels. (3) Anemia: Code(s): D64.9 - Anemia, unspecified Status: Acute Assessment and Plan: Anemia of chronic disease secondary to ESRD [facility]/Epogen with HD per nephrology Denies active bleeding Trend H/H 05/07- hg 9.4 today, continue to monitor (4) Heart failure with preserved ejection fraction: Code(s): I50.30 - Unspecified diastolic (congestive) heart failure Status: Chronic Assessment and Plan: Chronic, does not appear in acute exacerbation - Current medications: carvedilol 6.25 mg q12, fluid removal with HD to maintain euvolemia - Chest XR: no acute pulmonary findings - Echo 06/28/24: [id number]% with grade I diastolic dysfunction - Monitor vital signs, I&Os, BUN/creatinine, daily weights, neuro status and patient is a fall risk - Monitor serum electrolytes, Keep serum Potassium>4 and serum Magnesium>2 and CBC Remains euvolemic. Continue to monitor. (5) Hypertension: Qualifiers: Hypertension type: unspecified Qualified Code(s): I10 - Essential (primary) hypertension Code(s): I10 - Essential (primary) hypertension Status: Chronic Assessment and Plan: Chronic, continue home medications - carvedilol 6.25 mg daily and hydralazine 25 mg TID - blood pressures reviewed and stable, continue to monitor (6) End stage renal disease on dialysis: Code(s): N18.6 - End stage renal disease; Z99.2 - Dependence on renal dialysis Status: Acute Assessment and Plan: Chronic HD on //Thu Nephrology consulted * continue dialysis schedule while hospitalized, eventually transition back to home HD on discharge * follow electrolytes, volume status, and clearance * outpatient dialysis unit = 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 Markie Ryan nephrology following for dialysis [id number] (7) Parkinsons: Code(s): G20.A1 - Parkinson's disease without dyskinesia, without mention of fluctuations Status: Acute Assessment and Plan: Chronic, continue home medications Time Spent With Patient Time with patient: 25 - 35 minutes Subjective Date/time seen: 05/07/25 08:58 Interval history: 74 year old female with diabetes, ESRD on HD //thu, Parkinson's, diabetes, HFpEF, dementia, anemia, and schizophrenia presents to the hospital for seizure like activity. Patient is pleasant sitting up comfortably in her chair. She has no complaints denying chest pain, shortness of breath, palpitations, nausea/vomiting, abdominal pain and dizziness/lightheadedness. Care coordination continues to follow for placement. Review of Systems Review of Systems: All systems reviewed & are unremarkable except as noted in HPI and below Exam Narrative: AF HR 62 RR 16 Spo2 95 BP 102/69 General: female in no acute respiratory distress who is nontoxic appearing, sitting up in chair HEENT: Extraocular movement intact. Sclera clear and anicteric. No facial asymmetry. Chest: Lungs are clear to auscultation bilaterally. No wheezes or crackles. CV: Heart was regular rate and rhythm. Abd: Abdomen was soft. Nontender. Nondistended. Positive bowel sounds. No organomegaly or masses. Ext: No clubbing, cyanosis, or edema. DP pulses bilaterally. Neuro: Patient is alert and oriented x3 (person,place, month) following commands. Speech is clear. Const: General: comfortable Objective Data Vital Signs Vital Signs: Vital Signs - 24 hr 05/06/25 12:00 05/06/25 12:00 05/06/25 13:09 Temperature 97.0 F L Pulse Rate 63 62 Respiratory Rate 16 Blood Pressure 96/44 L 90/57 L Pulse Oximetry 98 05/06/25 14:37 05/06/25 16:00 05/06/25 16:00 Temperature 98.1 F Pulse Rate 70 68 Respiratory Rate 16 Blood Pressure 98/42 L 127/54 L Pulse Oximetry 99 05/06/25 20:00 05/06/25 20:00 05/07/25 00:00 Temperature 96.4 F L 98.2 F Pulse Rate 61 63 60 Respiratory Rate 17 Blood Pressure 99/43 L 124/49 L Pulse Oximetry 95 97 05/07/25 00:00 05/07/25 04:00 05/07/25 04:00 Temperature 98.2 F Pulse Rate 66 66 70 Respiratory Rate 16 Blood Pressure 120/43 L Pulse Oximetry 98 05/07/25 08:49 Temperature Pulse Rate 70 Respiratory Rate Blood Pressure Pulse Oximetry Intake/Output Intake/Output: Intake & Output 05/04/25 05/05/25 05/06/25 05/07/25 23:59 23:59 23:59 23:59 Intake Total 1288 490 778 700 Output Total 1999 Balance 1288 -1510 778 700 Meds/Results Medications: Active Medications Generic Name Dose Route Start Last Admin Trade Name Freq PRN Reason Stop Dose Admin Acetaminophen 650 mg 05/02/25 07:33 Acetaminophen 325 Mg Tablet PO Q6H PRN Pain Aspirin 81 mg 05/02/25 09:00 05/07/25 08:48 Aspirin 81 Mg Chewable Tablet PO 81 mg DAILY SOL Administration Atorvastatin Calcium 20 mg 05/02/25 18:00 05/06/25 18:46 Atorvastatin 20 Mg Tablet PO 20 mg QPM SOL Administration Benztropine Mesylate 2 mg 05/02/25 21:00 05/06/25 21:04 Benztropine Mesylate 1 Mg Tablet PO 2 mg HS SOL Administration Calcitriol 0.25 mcg 05/02/25 09:00 05/07/25 08:49 Calcitriol 0.25 Mcg Capsule PO 0.25 mcg DAILY SOL Administration Carvedilol 6.25 mg 05/02/25 09:00 05/07/25 08:49 Carvedilol 6.25 Mg Tablet PO 6.25 mg Q12H SOL Administration Dextrose 12.5 gm 05/02/25 07:34 Dextrose 50% 25 Gm/50 Ml Syringe IV PUSH PRN PRN Hypoglycemia Protocol Gabapentin 100 mg 05/03/25 21:00 05/05/25 22:06 Gabapentin 100 Mg Capsule PO 100 mg [id number] SOL Administration Glucagon 1 mg 05/02/25 07:34 Glucagon For Inj 1 Mg Vial IM PRN PRN Hypoglycemia Protocol Glucose 15 gm 05/02/25 07:34 Glucose Oral Gel 15 Gm Of Glucse In 37.5 Gm Tube PO PRN PRN Hypoglycemia Protocol Heparin Sodium (Porcine) 5,000 units 05/02/25 21:00 05/07/25 08:49 Heparin Sodium 5,000 Units/Ml Vial SUB-Q 5,000 units Q12HR SOL Administration Hydralazine HCl 25 mg 05/02/25 09:00 05/07/25 08:49 Hydralazine Hcl 25 Mg Tablet PO 25 mg TID SOL Administration Dextrose 1,000 mls @ 100 mls/hr 05/02/25 07:34 Dextrose 5% 1,000 Ml IVPB PRN PRN Hypoglycemia Protocol Albumin Human 50 mls @ 999 mls/hr 05/03/25 06:34 05/05/25 12:54 Albutein IVPB 06/02/25 06:33 999 mls/hr Q10M PRN Administration HYPOTENSION Insulin Aspart 3 - 6 units 05/05/25 08:00 05/07/25 08:51 Insulin Aspart (*Bkc) 100 Units/Ml SUB-Q Not Given TIDWM [facility] Protocol Insulin Aspart 4 units 05/05/25 17:00 05/07/25 08:47 Insulin Aspart (*Bkc) 100 Units/Ml SUB-Q 4 units TIDWM SOL Administration Insulin Glargine 11 units 05/03/25 21:00 05/06/25 21:08 Insulin Glargine (*Bkc) 100 Units/Ml SUB-Q 11 units HS SOL Administration Levetiracetam 250 mg/ 750 mg 05/02/25 09:00 05/07/25 08:49 Levetiracetam 500 mg PO 750 mg Q12HR SOL Administration Lidocaine 2 patch 05/02/25 07:33 Lidocaine 5% Patch TOPICAL DAILY PRN Back Pain Pantoprazole Sodium 40 mg 05/02/25 09:00 05/07/25 08:48 Pantoprazole 40 Mg Tablet PO 40 mg DAILY SOL Administration Tramadol/Acetaminophen 1 tab 05/02/25 07:33 Tramadol/Acetaminophen (*Crx) (Ultracet) 37.5/325 Mg Tablet PO Q6H PRN Pain 4-6 Radiology Results: ITS Impressions Chest X-Ray 05/01/25 22:45 IMPRESSION: No acute pulmonary findings. Head CT 05/02/25 06:57 IMPRESSION: 1. No acute intracranial findings. Labs Labs: Laboratory Results - last 24 hr 05/06/25 05/06/25 05/06/25 12:09 16:27 20:56 WBC RBC Hgb Hct MCV MCH MCHC RDW Plt Count MPV Sodium Potassium Chloride Carbon Dioxide Anion Gap BUN Creatinine Estim Creat Clear Calc Estimated GFR Glucose POC Capillary Glucose 229 H 252 H 186 H Calcium Total Bilirubin AST ALT Alkaline Phosphatase Total Protein Albumin 05/07/25 05/07/25 06:17 07:33 WBC 11.5 H RBC 3.03 L Hgb 9.4 L Hct 30.6 L MCV 101.0 H MCH 31.0 MCHC 30.7 L RDW 14.4 Plt Count 238 MPV 10.5 H Sodium 135 L Potassium 4.1 Chloride 98 Carbon Dioxide 23 Anion Gap 14 H BUN 51 H D Creatinine 6.92 H Estim Creat Clear Calc 6 Estimated GFR 6 L Glucose 139 H POC Capillary Glucose 171 H Calcium 9.5 Total Bilirubin 0.3 AST 29 ALT 19 Alkaline Phosphatase 99 Total Protein 7.3 Albumin 3.9 Quality VTE Prophylaxis VTE prophylaxis: pharmacologic ordered
--- NOTE | 2025-05-07 13:37 | PM.PNNEP ---
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 Markie Ryan (2) Seizure-like activity: Code(s): R56.9 - Unspecified convulsions Status: Acute Assessment and Plan: reported history but no outpatient medications for this elevated lactic acid noted without evidence of infection suspicious for seizure seizure precautions Head [facility] Neu[facility] recommendations noted (3) Anemia: Qualifiers: Anemia type: unspecified type Qualified Code(s): D64.9 - Anemia, unspecified Code(s): D64.9 - Anemia, unspecified Status: Chronic Assessment and Plan: due to ESRD [facility]/Epogen with HD check iron studies if worsens follow trend of H/H (4) Congestive heart failure: Qualifiers: Heart failure type: diastolic Heart failure chronicity: chronic Qualified Code(s): I50.32 - Chronic diastolic (congestive) heart failure Code(s): I50.9 - Heart failure, unspecified Status: Chronic Assessment and Plan: compensated at this time fluid removal with HD to maintain euvolemia follow volume status (5) Hypertension: Qualifiers: Hypertension type: unspecified Qualified Code(s): I10 - Essential (primary) hypertension Code(s): I10 - Essential (primary) hypertension Status: Chronic Assessment and Plan: reasonable control at this time adjust medications as needed follow trend of hemodynamics (6) Insulin dependent diabetes mellitus: Status: Chronic Assessment and Plan: follow accu-cheks glycemic control per hospitalist Will continue to follow. Subjective Date/time seen: 05/07/25 13:37 Interval history: Follow-up for end stage renal disease on hemodialysis. No apparent distress noted at the time of my visit; feels reasonably well without any acute complaints voiced; no other events overnight or earlier this morning; awaiting placement. Exam Narrative: General: elderly female in NAD Heart: normal S1 and S2; no rub Lungs: clear to auscultation Abdomen: soft, nontender, nondistended, positive bowel sounds Extremities: no cyanosis or clubbing; no edema Skin: no nodules Objective Data Vital Signs Vital Signs: Vital Signs Temp Pulse Resp BP Pulse Ox O2 Del Method 05/07/25 12:00 97.5 F L 78 16 102/69 95 05/07/25 08:49 70 05/07/25 08:00 75 05/07/25 08:00 Room Air 05/07/25 08:00 96.8 F L 66 15 112/40 L 97 05/07/25 04:00 98.2 F 70 16 120/43 L 98 05/07/25 04:00 66 05/07/25 00:00 66 05/07/25 00:00 98.2 F 60 17 124/49 L 97 05/06/25 20:00 63 05/06/25 20:00 96.4 F L 61 99/43 L 95 Intake/Output Intake/Output: Intake & Output 05/04/25 05/05/25 05/06/25 05/07/25 23:59 23:59 23:59 23:59 Intake Total 1288 086 136 2556 Output Total 1999 Balance 1288 -1293 854 6243 Meds/Results Medications: Active Medications Generic Name Dose Route Start Last Admin Trade Name Freq PRN Reason Stop Dose Admin Acetaminophen 650 mg 05/02/25 07:33 Acetaminophen 325 Mg Tablet PO Q6H PRN Pain Aspirin 81 mg 05/02/25 09:00 05/07/25 08:48 Aspirin 81 Mg Chewable Tablet PO 81 mg DAILY SOL Administration Atorvastatin Calcium 20 mg 05/02/25 18:00 05/07/25 17:14 Atorvastatin 20 Mg Tablet PO 20 mg QPM SOL Administration Benztropine Mesylate 2 mg 05/02/25 21:00 05/06/25 21:04 Benztropine Mesylate 1 Mg Tablet PO 2 mg HS SOL Administration Calcitriol 0.25 mcg 05/02/25 09:00 05/07/25 08:49 Calcitriol 0.25 Mcg Capsule PO 0.25 mcg DAILY SOL Administration Carvedilol 6.25 mg 05/02/25 09:00 05/07/25 08:49 Carvedilol 6.25 Mg Tablet PO 6.25 mg Q12H SOL Administration Dextrose 12.5 gm 05/02/25 07:34 Dextrose 50% 25 Gm/50 Ml Syringe IV PUSH PRN PRN Hypoglycemia Protocol Gabapentin 100 mg 05/03/25 21:00 05/05/25 22:06 Gabapentin 100 Mg Capsule PO 100 mg [id number] SOL Administration Glucagon 1 mg 05/02/25 07:34 Glucagon For Inj 1 Mg Vial IM PRN PRN Hypoglycemia Protocol Glucose 15 gm 05/02/25 07:34 Glucose Oral Gel 15 Gm Of Glucse In 37.5 Gm Tube PO PRN PRN Hypoglycemia Protocol Heparin Sodium (Porcine) 5,000 units 05/02/25 21:00 05/07/25 08:49 Heparin Sodium 5,000 Units/Ml Vial SUB-Q 5,000 units Q12HR SOL Administration Hydralazine HCl 25 mg 05/02/25 09:00 05/07/25 17:14 Hydralazine Hcl 25 Mg Tablet PO 25 mg TID SOL Administration Dextrose 1,000 mls @ 100 mls/hr 05/02/25 07:34 Dextrose 5% 1,000 Ml IVPB PRN PRN Hypoglycemia Protocol Albumin Human 50 mls @ 999 mls/hr 05/03/25 06:34 05/05/25 12:54 Albutein IVPB 06/02/25 06:33 999 mls/hr Q10M PRN Administration HYPOTENSION Insulin Aspart 3 - 6 units 05/05/25 08:00 05/07/25 17:14 Insulin Aspart (*Bkc) 100 Units/Ml SUB-Q Not Given TIDWM [facility] Protocol Insulin Aspart 4 units 05/05/25 17:00 05/07/25 17:12 Insulin Aspart (*Bkc) 100 Units/Ml SUB-Q 4 units TIDWM SOL Administration Insulin Glargine 14 units 05/07/25 21:00 Insulin Glargine (*Bkc) 100 Units/Ml SUB-Q HS [facility] Levetiracetam 250 mg/ 750 mg 05/02/25 09:00 05/07/25 08:49 Levetiracetam 500 mg PO 750 mg Q12HR SOL Administration Lidocaine 2 patch 05/02/25 07:33 Lidocaine 5% Patch TOPICAL DAILY PRN Back Pain Pantoprazole Sodium 40 mg 05/02/25 09:00 05/07/25 08:48 Pantoprazole 40 Mg Tablet PO 40 mg DAILY SOL Administration Tramadol/Acetaminophen 1 tab 05/02/25 07:33 Tramadol/Acetaminophen (*Crx) (Ultracet) 37.5/325 Mg Tablet PO Q6H PRN Pain 4-6 Radiology Results: ITS Impressions Chest X-Ray 05/01/25 22:45 IMPRESSION: No acute pulmonary findings. Head CT 05/02/25 06:57 IMPRESSION: 1. No acute intracranial findings. Labs Labs: Laboratory Tests 05/07/25 06:17 05/07/25 06:17 Calcium 9.5 Total Bilirubin 0.3 AST 29 ALT 19 Alkaline Phosphatase 99 Total Protein 7.3 Albumin 3.9
[2025-05-07] MEDS: ATORVASTATIN 20 MG TABLET PO (17:14)
[2025-05-07] MEDS: BENZTROPINE MESYLATE 1 MG TABLET 2 MG PO (20:55)
[2025-05-07] MEDS: INSULIN GLARGINE (*BKC) 100 UNITS/ML 14 UNITS SUB-Q (20:56)
[2025-05-08] VITALS (25 sets, daily range): BP systolic 98–156; BP diastolic 44–116; PULSE 57–92; RESP 14–22; TEMP 36.2–37; O2SAT 94–100
[2025-05-08 06:07] LABS: Alanine Aminotransferase 15 U/L (6-35); Albumin Level 3.8 g/dL (3.5-5.1); Alkaline Phosphatase 85 U/L (38-126); Anion Gap 14 mmol/L (4-12); Aspartate Amino Transferase 30 U/L (14-36); Bilirubin,Total 0.4 mg/dL (0.2-1.3); Blood Urea Nitrogen 64 mg/dL (7-17); Calcium 9.4 mg/dL (8.4-10.2); Carbon Dioxide 22 mmol/L (22-30); Chloride 98 mmol/L (98-107); Estimated CRCL calculation 5 ml/min; Estimated Glomerular Filt Rate 5; Glucose 134 mg/dL (65-110); Potassium 4.3 mmol/L (3.4-5.0); Sodium 134 mmol/L (137-145); Total Protein 7.1 g/dL (6.3-8.2)
--- NOTE | 2025-05-08 08:46 | P.PNIM_ITS ---
Progress Note: A&P Assessment and Plan (1) Seizure-like activity: Code(s): R56.9 - Unspecified convulsions Status: Acute Assessment and Plan: Per family, patient was about an hour and a half into her regular dialysis when her blood pressure dropped to the 80s/50s so it was stopped and she was given 300 mL of fluid. After this, she had vomiting x2 before approximately 1-2 minute episode of seizure-like activity. Ddx: seizure vs hypotension vs arrhythmia vs electrolyte imbalance - Family reports prior seizure like history though no antiseizure medications started at that time, does not follow neurology - Lactic elevated on admission at 4.9, furthering suspicion for seizure. Received IV fluids in the ED and now downtrending. No signs of infection. - Seizure precautions - Telemetry discontinued as no arrhythmias noted since admission - Head CT showed no acute intracranial findings - EEG obtained, read pending - Patient was given a loading dose of 1500 mg Keppra in the ED. - Neurology consulted Continue keppra 750 mg BID - PT/OT recommending SNF. Care coordination following for placement. Remains on keppra as above. AOx2 (person, place) on assessment. Care coordination continues to follow for placement, accepted at [facility] however no beds available today. Hopeful for discharge tomorrow. (2) Diabetes: Qualifiers: Chronic kidney disease stage: on chronic dialysis Diabetes mellitus complication detail: with chronic kidney disease Diabetes mellitus complication status: with kidney complications Diabetes mellitus correction insulin use: unspecified correction insulin use status Diabetes mellitus type: type 2 Qualified Code(s): E11.22 - Type 2 diabetes mellitus with diabetic chronic kidney disease; N18.6 - End stage renal disease; Z99.2 - Dependence on renal dialysis Code(s): E11.9 - Type 2 diabetes mellitus without complications Status: Chronic Assessment and Plan: - hypoglycemia protocol - POC blood glucose ACHS - home medication - lantus 14 units and lispro SSI - correct regimen ordered - lantus 11 units ( 20% of home dose given stricter diet during hospitalization) and SSI - A1C 6.5 in 11/10/24 Glucose much improved. Continue to closely monitor glucose levels. (3) Anemia: Code(s): D64.9 - Anemia, unspecified Status: Acute Assessment and Plan: Anemia of chronic disease secondary to ESRD GARFIELD/Epogen with HD per nephrology Denies active bleeding Trend H/H 05/08- hg 9.4 today, continue to monitor (4) Heart failure with preserved ejection fraction: Code(s): I50.30 - Unspecified diastolic (congestive) heart failure Status: Chronic Assessment and Plan: Chronic, does not appear in acute exacerbation - Current medications: carvedilol 6.25 mg q12, fluid removal with HD to maintain euvolemia - Chest XR: no acute pulmonary findings - Echo 06/28/24: [id number]% with grade I diastolic dysfunction - Monitor vital signs, I&Os, BUN/creatinine, daily weights, neuro status and patient is a fall risk - Monitor serum electrolytes, Keep serum Potassium>4 and serum Magnesium>2 and CBC Remains euvolemic. Continue to monitor. (5) Hypertension: Qualifiers: Hypertension type: unspecified Qualified Code(s): I10 - Essential (primary) hypertension Code(s): I10 - Essential (primary) hypertension Status: Chronic Assessment and Plan: Chronic, continue home medications - carvedilol 6.25 mg daily and hydralazine 25 mg TID - blood pressures reviewed and stable, continue to monitor (6) End stage renal disease on dialysis: Code(s): N18.6 - End stage renal disease; Z99.2 - Dependence on renal dialysis Status: Acute Assessment and Plan: Chronic Nephrology consulted * continue dialysis schedule while hospitalized, eventually transition back to h ome HD on discharge * follow electrolytes, volume status, and clearance * outpatient dialysis unit = [facility] * primary barrer and tacker = Dr. Markie Ryan nephrology following for dialysis [id number] Recieved dialysis today. (7) Parkinsons: Code(s): G20.A1 - Parkinson's disease without dyskinesia, without mention of fluctuations Status: Acute Assessment and Plan: Chronic, continue home medications Time Spent With Patient Time with patient: 25 - 35 minutes Subjective Date/time seen: 05/08/25 08:46 Interval history: 74 year old female with diabetes, ESRD on HD tu//sat, Parkinson's, diab etes, HFpEF, dementia, anemia, and schizophrenia presents to the hospital for seizure like activity. Patient is pleasant lying comfortably in bed receiving dialysis. She remains alert and oriented times 2 at baseline. She has no complaints denying chest pain, shortness a breath, palpitations, nausea/vomiting, and abdominal pain. Discussed patient with care coordination and SNF does not have availability today, hopeful for discharge to SNF tomorrow. Review of Systems Review of Systems: All systems reviewed & are unremarkable except as noted in HPI and below Exam Narrative: AF HR 67 RR 18 SpO2 98 BP 126/57 General: female in no acute respiratory distress who is nontoxic appearing, sitting up in bed receiving dialysis HEENT: Extraocular movement intact. Sclera clear and anicteric. No facial asymmetry. Chest: Lungs are clear to auscultation bilaterally. No wheezes or crackles. CV: Heart was regular rate and rhythm. Abd: Abdomen was soft. Nontender. Nondistended. Positive bowel sounds. Ext: No clubbing, cyanosis, or edema. DP pulses bilaterally. Neuro: Patient is alert and oriented x2 (person,place) following commands. Speech is clear. Const: General: comfortable Objective Data Vital Signs Vital Signs: Vital Signs - 24 hr 05/07/25 08:49 05/07/25 12:00 05/07/25 12:00 Temperature 97.5 F L Pulse Rate 70 78 62 Respiratory Rate 16 Blood Pressure 102/69 Pulse Oximetry 95 Oxygen Delivery 05/07/25 16:00 05/07/25 16:00 05/07/25 20:00 Temperature 97.3 F L 98.1 F Pulse Rate 63 63 64 Respiratory Rate 15 18 Blood Pressure 121/72 111/46 L Pulse Oximetry 99 94 Oxygen Delivery 05/07/25 20:00 05/07/25 20:00 05/07/25 20:55 Temperature Pulse Rate 62 62 Respiratory Rate Blood Pressure Pulse Oximetry Oxygen Delivery Room Air 05/08/25 00:00 05/08/25 00:00 05/08/25 04:00 Temperature 98.2 F Pulse Rate 92 62 65 Respiratory Rate 16 Blood Pressure 111/48 L Pulse Oximetry 100 Oxygen Delivery 05/08/25 04:00 05/08/25 08:00 Temperature 97.3 F L 97.3 F L Pulse Rate 65 69 Respiratory Rate 16 16 Blood Pressure 98/53 L 103/64 Pulse Oximetry 100 97 Oxygen Delivery Intake/Output Intake/Output: Intake & Output 05/05/25 05/06/25 05/07/25 05/08/25 23:59 23:59 23:59 23:59 Intake Total 371 047 1542 Output Total 2000 0 Balance -9180 477 0431 0 Meds/Results Medications: Active Medications Generic Name Dose Route Start Last Admin Trade Name Sergeyq PRN Reason Stop Dose Admin Acetaminophen 650 mg 05/02/25 07:33 Acetaminophen 325 Mg Tablet PO Q6H PRN Pain Aspirin 81 mg 05/02/25 09:00 05/07/25 08:48 Aspirin 81 Mg Chewable Tablet PO 81 mg DAILY SOL Administration Atorvastatin Calcium 20 mg 05/02/25 18:00 05/07/25 17:14 Atorvastatin 20 Mg Tablet PO 20 mg QPM SOL Administration Benztropine Mesylate 2 mg 05/02/25 21:00 05/07/25 20:55 Benztropine Mesylate 1 Mg Tablet PO 2 mg HS SOL Administration Calcitriol 0.25 mcg 05/02/25 09:00 05/07/25 08:49 Calcitriol 0.25 Mcg Capsule PO 0.25 mcg DAILY SOL Administration Carvedilol 6.25 mg 05/02/25 09:00 05/07/25 20:55 Carvedilol 6.25 Mg Tablet PO 6.25 mg Q12H SOL Administration Dextrose 12.5 gm 05/02/25 07:34 Dextrose 50% 25 Gm/50 Ml Syringe IV PUSH PRN PRN Hypoglycemia Protocol Epoetin Lucius-epbx 10,000 units 05/08/25 18:00 Epoetin Lucius-Epbx 10,000 Units/Ml Vial IV PUSH 05/08/25 18:01 ONCE ONE Gabapentin 100 mg 05/03/25 21:00 05/05/25 22:06 Gabapentin 100 Mg Capsule PO 100 mg [id number] SOL Administration Glucagon 1 mg 05/02/25 07:34 Glucagon For Inj 1 Mg Vial IM PRN PRN Hypoglycemia Protocol Glucose 15 gm 05/02/25 07:34 Glucose Oral Gel 15 Gm Of Glucse In 37.5 Gm Tube PO PRN PRN Hypoglycemia Protocol Heparin Sodium (Porcine) 5,000 units 05/02/25 21:00 05/07/25 20:55 Heparin Sodium 5,000 Units/Ml Vial SUB-Q 5,000 units Q12HR SOL Administration Hydralazine HCl 25 mg 05/02/25 09:00 05/07/25 17:14 Hydralazine Hcl 25 Mg Tablet PO 25 mg TID SOL Administration Dextrose 1,000 mls @ 100 mls/hr 05/02/25 07:34 Dextrose 5% 1,000 Ml IVPB PRN PRN Hypoglycemia Protocol Albumin Human 50 mls @ 999 mls/hr 05/03/25 06:34 05/05/25 12:54 Albutein IVPB 06/02/25 06:33 999 mls/hr Q10M PRN Administration HYPOTENSION Insulin Aspart 3 - 6 units 05/05/25 08:00 05/07/25 17:14 Insulin Aspart (*Bkc) 100 Units/Ml SUB-Q Not Given TIDWM SOL Protocol Insulin Aspart 4 units 05/05/25 17:00 05/07/25 17:12 Insulin Aspart (*Bkc) 100 Units/Ml SUB-Q 4 units TIDWM SOL Administration Insulin Glargine 14 units 05/07/25 21:00 05/07/25 20:56 Insulin Glargine (*Bkc) 100 Units/Ml SUB-Q 14 units HS SOL Administration Levetiracetam 250 mg/ 750 mg 05/02/25 09:00 05/07/25 20:55 Levetiracetam 500 mg PO 750 mg Q12HR SOL Administration Lidocaine 2 patch 05/02/25 07:33 Lidocaine 5% Patch TOPICAL DAILY PRN Back Pain Pantoprazole Sodium 40 mg 05/02/25 09:00 05/07/25 08:48 Pantoprazole 40 Mg Tablet PO 40 mg DAILY SOL Administration Tramadol/Acetaminophen 1 tab 05/02/25 07:33 Tramadol/Acetaminophen (*Crx) (Ultracet) 37.5/325 Mg Tablet PO Q6H PRN Pain 4-6 Radiology Results: ITS Impressions Chest X-Ray 05/01/25 22:45 IMPRESSION: No acute pulmonary findings. Head CT 05/02/25 06:57 IMPRESSION: 1. No acute intracranial findings. Labs Labs: Laboratory Results - last 24 hr 05/07/25 05/07/25 05/07/25 11:37 16:45 20:10 Sodium Potassium Chloride Carbon Dioxide Anion Gap BUN Creatinine Estim Creat Clear Calc Estimated GFR Glucose POC Capillary Glucose 286 H 197 H 165 H Calcium Total Bilirubin AST ALT Alkaline Phosphatase Total Protein Albumin 05/08/25 05/08/25 04:56 07:23 Sodium 134 L Potassium 4.3 Chloride 98 Carbon Dioxide 22 Anion Gap 14 H BUN 64 H D Creatinine 8.36 H Estim Creat Clear Calc 5 Estimated GFR 5 L Glucose 134 H POC Capillary Glucose 159 H Calcium 9.4 Total Bilirubin 0.4 AST 30 ALT 15 Alkaline Phosphatase 85 Total Protein 7.1 Albumin 3.8 Quality VTE Prophylaxis VTE prophylaxis: pharmacologic ordered
[2025-05-08 08:50] LABS: Hematocrit 29.8 % (37.0-47.0); Hemoglobin 9.4 g/dL (12.0-15.0); Mean Corpuscular HGB Conc 31.5 g/dl (32-36); Mean Corpuscular Hemoglobin 31.0 pg (26-34); Mean Corpuscular Volume 98.3 fl (80-100); Platelet Count Result 256 k/mm3 (150-375); Red Blood Count 3.03 M/mm3 (4.2-5.4); White Blood Count 10.6 K/mm3 (4.5-10.0)
[2025-05-08] MEDS: INSULIN ASPART (*BKC) 100 UNITS/ML SUB-Q ×3 (08:52→18:19)
--- NOTE | 2025-05-08 09:08 | PC.NURSE ---
To GI Lab per bed. Report given to fur drummer.
--- NOTE | 2025-05-08 09:09 | PC.NURSE ---
To dialysis per bed. Report given to dialysis equipment technician.
--- NOTE | 2025-05-08 10:30 | P.PNNP_ITS ---
Progress Note: A&P Assessment and Plan (1) End stage renal disease: Code(s): N18.6 - End stage renal disease Status: Chronic Assessment and Plan: * HD today * continue Thu/Thu/Thursday dialysis schedule while hospitalized * eventually transition back to home HD (if discharged back home) * follow electrolytes, volume status, and clearance * outpatient dialysis unit = [facility] * primary button pusher = Dr. Markie Ryan (2) Seizure-like activity: Code(s): R56.9 - Unspecified convulsions Status: Acute Assessment and Plan: * reported history but no outpatient medications for this * elevated lactic acid noted without evidence of infection suspicious for seizure * seizure precautions * Head CT negative * on Keppra * Neurology recommendations noted (3) Anemia: Qualifiers: Anemia type: unspecified type Qualified Code(s): D64.9 - Anemia, unspecified Code(s): D64.9 - Anemia, unspecified Status: Chronic Assessment and Plan: * due to ESRD * GARFIELD/Epogen with HD * check iron studies if worsens * follow trend of H/H (4) Congestive heart failure: Qualifiers: Heart failure type: diastolic Heart failure chronicity: chronic Q ualified Code(s): I50.32 - Chronic diastolic (congestive) heart failure Code(s): I50.9 - Heart failure, unspecified Status: Chronic Assessment and Plan: * compensated at this time * fluid removal with HD to maintain euvolemia * follow volume status (5) Hypertension: Qualifiers: Hypertension type: unspecified Qualified Code(s): I10 - Essential (primary) hypertension Code(s): I10 - Essential (primary) hypertension Status: Chronic Assessment and Plan: * reasonable control at this time * adjust medications as needed * follow trend of hemodynamics (6) Insulin dependent diabetes mellitus: Status: Chronic Assessment and Plan: * follow accu-cheks * glycemic control per hospitalist Will continue to follow. L Subjective Date/time seen: 05/08/25 10:30 Interval history: Follow-up for end stage renal disease on hemodialysis. Tolerating dialysis treatment at the time of my visit (seen on HD at 10:20am); resting comfortably when seen; no apparent distress voiced with no issues/events overnight or earlier this morning. Exam 2 Narrative: General: elderly female in NAD Heart: normal S1 and S2; no rub Lungs: clear to auscultation Abdomen: soft, nontender, nondistended, positive bowel sounds Extremities: no cyanosis or clubbing; no edema Skin: warm and dry Objective Data Vital Signs Vital Signs: Vital Signs Temp Pulse Resp BP Pulse Ox O2 Del Method 05/08/25 10:30 62 103/54 L 05/08/25 10:15 65 100/44 L 05/08/25 10:00 61 101/49 L 05/08/25 09:45 60 116/50 L 05/08/25 09:30 57 L 128/54 L 05/08/25 09:15 65 141/63 H 05/08/25 09:08 98.0 F 67 18 156/60 H 98 05/08/25 08:45 Room Air 05/08/25 08:00 63 05/08/25 08:00 97.3 F L 69 16 103/64 97 05/08/25 04:00 97.3 F L 65 16 98/53 L 100 05/08/25 04:00 65 05/08/25 00:00 62 05/08/25 00:00 98.2 F 92 16 111/48 L 100 05/07/25 20:55 62 05/07/25 20:00 62 05/07/25 20:00 Room Air 05/07/25 20:00 98.1 F 64 18 111/46 L 94 05/07/25 16:00 63 05/07/25 16:00 97.3 F L 63 15 121/72 99 Intake/Output Intake/Output: Intake & Output 05/05/25 05/06/25 05/07/25 05/08/25 23:59 23:59 23:59 23:59 Intake Total 279 616 3669 0 Output Total 2000 0 Balance -8920 511 6647 0 Meds/Results Medications: Active Medications Generic Name Dose Route Start Last Admin Trade Name Freq PRN Reason Stop Dose Admin Acetaminophen 650 mg 05/02/25 07:33 Acetaminophen 325 Mg Tablet PO Q6H PRN Pain Aspirin 81 mg 05/02/25 09:00 05/07/25 08:48 Aspirin 81 Mg Chewable Tablet PO 81 mg DAILY SOL Administration Atorvastatin Calcium 20 mg 05/02/25 18:00 05/07/25 17:14 Atorvastatin 20 Mg Tablet PO 20 mg QPM SOL Administration Benztropine Mesylate 2 mg 05/02/25 21:00 05/07/25 20:55 Benztropine Mesylate 1 Mg Tablet PO 2 mg HS SOL Administration Calcitriol 0.25 mcg 05/02/25 09:00 05/07/25 08:49 Calcitriol 0.25 Mcg Capsule PO 0.25 mcg DAILY SOL Administration Carvedilol 6.25 mg 05/02/25 09:00 05/07/25 20:55 Carvedilol 6.25 Mg Tablet PO 6.25 mg Q12H SOL Administration Dextrose 12.5 gm 05/02/25 07:34 Dextrose 50% 25 Gm/50 Ml Syringe IV PUSH PRN PRN Hypoglycemia Protocol Epoetin Lucius-epbx 10,000 units 05/08/25 18:00 Epoetin Lucius-Epbx 10,000 Units/Ml Vial IV PUSH 05/08/25 18:01 ONCE ONE Gabapentin 100 mg 05/03/25 21:00 05/05/25 22:06 Gabapentin 100 Mg Capsule PO 100 mg [id number] SOL Administration Glucagon 1 mg 05/02/25 07:34 Glucagon For Inj 1 Mg Vial IM PRN PRN Hypoglycemia Protocol Glucose 15 gm 05/02/25 07:34 Glucose Oral Gel 15 Gm Of Glucse In 37.5 Gm Tube PO PRN PRN Hypoglycemia Protocol Heparin Sodium (Porcine) 5,000 units 05/02/25 21:00 05/07/25 20:55 Heparin Sodium 5,000 Units/Ml Vial SUB-Q 5,000 units Q12HR SOL Administration Hydralazine HCl 25 mg 05/02/25 09:00 05/08/25 11:11 Hydralazine Hcl 25 Mg Tablet PO Not Given TID SOL Dextrose 1,000 mls @ 100 mls/hr 05/02/25 07:34 Dextrose 5% 1,000 Ml IVPB PRN PRN Hypoglycemia Protocol Albumin Human 50 mls @ 999 mls/hr 05/03/25 06:34 05/05/25 12:54 Albutein IVPB 06/02/25 06:33 999 mls/hr Q10M PRN Administration HYPOTENSION Insulin Aspart 3 - 6 units 05/05/25 08:00 05/08/25 08:53 Insulin Aspart (*Bkc) 100 Units/Ml SUB-Q Not Given TIDWM SOL Protocol Insulin Aspart 4 units 05/05/25 17:00 05/08/25 08:52 Insulin Aspart (*Bkc) 100 Units/Ml SUB-Q 4 units TIDWM SOL Administration Insulin Glargine 14 units 05/07/25 21:00 05/07/25 20:56 Insulin Glargine (*Bkc) 100 Units/Ml SUB-Q 14 units HS SOL Administration Levetiracetam 250 mg/ 750 mg 05/02/25 09:00 05/07/25 20:55 Levetiracetam 500 mg PO 750 mg Q12HR SOL Administration Lidocaine 2 patch 05/02/25 07:33 Lidocaine 5% Patch TOPICAL DAILY PRN Back Pain Pantoprazole Sodium 40 mg 05/02/25 09:00 05/07/25 08:48 Pantoprazole 40 Mg Tablet PO 40 mg DAILY SOL Administration Tramadol/Acetaminophen 1 tab 05/02/25 07:33 Tramadol/Acetaminophen (*Crx) (Ultracet) 37.5/325 Mg Tablet PO Q6H PRN Pain 4-6 Radiology Results: ITS Impressions Chest X-Ray 05/01/25 22:45 IMPRESSION: No acute pulmonary findings. Head CT 05/02/25 06:57 IMPRESSION: 1. No acute intracranial findings. Labs Labs: Laboratory Tests 05/08/25 04:56 05/08/25 04:56 Calcium 9.4 Total Bilirubin 0.4 AST 30 ALT 15 Alkaline Phosphatase 85 Total Protein 7.1 Albumin 3.8
--- NOTE | 2025-05-08 11:28 | PCOTNOTE ---
Patient out of the room at this time. Patient is in dialysis.
[2025-05-08] MEDS: EPOETIN ALFA-EPBX 10,000 UNITS/ML VIAL 10000 UNITS IV PUSH (12:35)
--- NOTE | 2025-05-08 12:57 | PCNWS ---
Weekly nutritional screen. Patient is tolerating current Renal diet with adequate [id number] most all meals. No weight loss reported. Pt to discharge to SNF tomorrow. No nutritional recommendations at this time.
[2025-05-08] MEDS: SODIUM CHLORIDE 0.9% IV 1,000 ML 999 ML IV CONT (13:00)
[2025-05-08] MEDS: levETIRAcetam Tablet 250 MG, levETIRAcetam Tablet 500 MG 750 MG PO ×2 (14:02→21:10)
[2025-05-08] MEDS: PANTOPRAZOLE 40 MG TABLET PO (14:02)
[2025-05-08] MEDS: ASPIRIN 81 MG CHEWABLE TABLET PO (14:03)
[2025-05-08] MEDS: ATORVASTATIN 20 MG TABLET PO (18:14)
[2025-05-08] MEDS: BENZTROPINE MESYLATE 1 MG TABLET 2 MG PO (21:11)
[2025-05-08] MEDS: GABAPENTIN 100 MG CAPSULE PO (21:15)
[2025-05-08] MEDS: INSULIN GLARGINE (*BKC) 100 UNITS/ML 14 UNITS SUB-Q (21:15)
[2025-05-09] VITALS (8 sets, daily range): BP systolic 100–122; BP diastolic 33–65; PULSE 57–73; RESP 14–20; TEMP 36.2–36.8; O2SAT 93–98
--- NOTE | 2025-05-09 08:37 | PM.IMPN ---
Progress Note: A&P Assessment and Plan (1) Seizure-like activity: Code(s): R56.9 - Unspecified convulsions Status: Acute Assessment and Plan: Per family, patient was about an hour and a half into her regular dialysis when her blood pressure dropped to the 80s/50s so it was stopped and she was given 300 mL of fluid. After this, she had vomiting x2 before approximately 1-2 minute episode of seizure-like activity. Ddx: seizure vs hypotension vs arrhythmia vs electrolyte imbalance - Family reports prior seizure like history though no antiseizure medications started at that time, does not follow neurology - Lactic elevated on admission at 4.9, furthering suspicion for seizure. Received IV fluids in the ED and now downtrending. No signs of infection. - Seizure precautions - Telemetry discontinued as no arrhythmias noted since admission - Head CT showed no acute intracranial findings - EEG obtained, read pending - Patient was given a loading dose of 1500 mg Keppra in the ED, remains on keppra 750 mg BID - Neurology consulted - PT/OT recommending SNF. Care coordination following for placement. Remains on keppra as above. AOx2 (person, place) on assessment. Care coordination continues to follow for placement, accepted at [facility] however again no beds available today (2) Diabetes: Qualifiers: Chronic kidney disease stage: on chronic dialysis Diabetes mellitus complication detail: with chronic kidney disease Diabetes mellitus complication status: with kidney complications Diabetes mellitus [facility] insulin use: unspecified [facility] insulin use status Diabetes mellitus type: type 2 Qualified Code(s): E11.22 - Type 2 diabetes mellitus with diabetic chronic kidney disease; N18.6 - End stage renal disease; Z99.2 - Dependence on renal dialysis Code(s): E11.9 - Type 2 diabetes mellitus without complications Status: Chronic Assessment and Plan: - hypoglycemia protocol - POC blood glucose ACHS - home medication - lantus 14 units and lispro SSI - correct regimen ordered - lantus 11 units ( 20% of home dose given stricter diet during hospitalization) and SSI - A1C 6.5 in 11/10/24 Glucose stable. Continue to monitor. (3) Anemia: Code(s): D64.9 - Anemia, unspecified Status: Acute Assessment and Plan: Anemia of chronic disease secondary to ESRD [facility]/Epogen with HD per nephrology Denies active bleeding Trend H/H 05/09- hg 9.9 today, continue to monitor (4) Heart failure with preserved ejection fraction: Code(s): I50.30 - Unspecified diastolic (congestive) heart failure Status: Chronic Assessment and Plan: Chronic, does not appear in acute exacerbation - Current medications: carvedilol 6.25 mg q12, fluid removal with HD to maintain euvolemia - Chest XR: no acute pulmonary findings - Echo 06/28/24: [id number]% with grade I diastolic dysfunction - Monitor vital signs, I&Os, BUN/creatinine, daily weights, neuro status and patient is a fall risk - Monitor serum electrolytes, Keep serum Potassium>4 and serum Magnesium>2 and CBC Remains euvolemic. Continue to monitor. (5) Hypertension: Qualifiers: Hypertension type: unspecified Qualified Code(s): I10 - Essential (primary) hypertension Code(s): I10 - Essential (primary) hypertension Status: Chronic Assessment and Plan: Chronic, continue home medications - carvedilol 6.25 mg daily and hydralazine 25 mg TID - blood pressures reviewed and stable, continue to monitor (6) End stage renal disease on dialysis: Code(s): N18.6 - End stage renal disease; Z99.2 - Dependence on renal dialysis Status: Acute Assessment and Plan: Chronic Nephrology consulted continue dialysis schedule while hospitalized, eventually transition back to home HD on discharge follow electrolytes, volume status, and clearance outpatient dialysis unit = [facility] primary academic services professional = Dr. Markie Ryan nephrology following for dialysis [id number] (7) Parkinsons: Code(s): G20.A1 - Parkinson's disease without dyskinesia, without mention of fluctuations Status: Acute Assessment and Plan: Chronic, continue home medications Time Spent With Patient Time with patient: 25 - 35 minutes Subjective Date/time seen: 05/09/25 08:37 Interval history: 74 year old female with diabetes, ESRD on HD //thu, Parkinson's, diabetes, HFpEF, dementia, anemia, and schizophrenia presents to the hospital for seizure like activity. Patient is pleasant lying comfortably in bed. She remains alert and oriented times 2 at time of assessment. She has no complaints denying chest pain, palpitations, shortness of breath, nausea/vomiting, abdominal pain, and dizziness/lightheadedness. Discussed patient with care coordination and she has acceptance at [facility] for SNF however no bed currently available. Review of Systems Review of Systems: All systems reviewed & are unremarkable except as noted in HPI and below Exam Narrative: AF HR 73 RR 16 Spo2 98 BP 103/54 General: female in no acute respiratory distress who is nontoxic appearing, lying semirecumbent in bed HEENT: Extraocular movement intact. Sclera clear and anicteric. No facial asymmetry. Chest: Lungs are clear to auscultation bilaterally. No wheezes or crackles. CV: Heart was regular rate and rhythm. Abd: Abdomen was soft. Nontender. Nondistended. Positive bowel sounds. Ext: No clubbing, cyanosis, or edema. DP pulses bilaterally. Neuro: Patient is alert and oriented x2 (person,place) following commands. Speech is clear. Const: General: comfortable Objective Data Vital Signs Vital Signs: Vital Signs - 24 hr 05/08/25 08:45 05/08/25 09:08 05/08/25 09:15 Temperature 98.0 F Pulse Rate 67 65 Respiratory Rate 18 Blood Pressure 156/60 H 141/63 H Pulse Oximetry 98 Oxygen Delivery Room Air 05/08/25 09:30 05/08/25 09:45 05/08/25 10:00 Temperature Pulse Rate 57 L 60 61 Respiratory Rate Blood Pressure 128/54 L 116/50 L 101/49 L Pulse Oximetry Oxygen Delivery 05/08/25 10:15 05/08/25 10:30 05/08/25 10:45 Temperature Pulse Rate 65 62 63 Respiratory Rate Blood Pressure 100/44 L 103/54 L 113/56 L Pulse Oximetry Oxygen Delivery 05/08/25 11:00 05/08/25 11:15 05/08/25 11:30 Temperature Pulse Rate 62 68 63 Respiratory Rate Blood Pressure 122/58 L 132/58 L 105/53 L Pulse Oximetry Oxygen Delivery 05/08/25 11:45 05/08/25 12:00 05/08/25 12:15 Temperature Pulse Rate 61 61 62 Respiratory Rate Blood Pressure 122/56 L 126/57 L 142/83 H Pulse Oximetry Oxygen Delivery 05/08/25 12:30 05/08/25 12:40 05/08/25 12:47 Temperature 97.9 F Pulse Rate 66 65 66 Respiratory Rate 18 Blood Pressure 117/50 L 99/48 L 110/50 L Pulse Oximetry 99 Oxygen Delivery 05/08/25 14:03 05/08/25 16:00 05/08/25 18:19 Temperature 97.6 F Pulse Rate 64 67 Respiratory Rate 14 Blood Pressure 98/56 L 134/116 H Pulse Oximetry 94 Oxygen Delivery 05/08/25 20:00 05/08/25 20:00 05/08/25 21:11 Temperature 97.2 F L Pulse Rate 69 66 Respiratory Rate 22 H Blood Pressure 114/77 Pulse Oximetry 95 Oxygen Delivery Room Air 05/09/25 00:00 05/09/25 04:00 05/09/25 08:00 Temperature 97.4 F L 97.2 F L 97.4 F L Pulse Rate 62 58 L 71 Respiratory Rate 20 16 14 Blood Pressure 122/65 112/36 L 103/54 L Pulse Oximetry 96 98 93 Oxygen Delivery Intake/Output Intake/Output: Intake & Output 05/06/25 05/07/25 05/08/25 05/09/25 23:59 23:59 23:59 23:59 Intake Total 778 1290 0 500 Output Total 936 Balance 778 1290 -936 500 Meds/Results Medications: Active Medications Generic Name Dose Route Start Last Admin Trade Name Freq PRN Reason Stop Dose Admin Acetaminophen 650 mg 05/02/25 07:33 Acetaminophen 325 Mg Tablet PO Q6H PRN Pain Aspirin 81 mg 05/02/25 09:00 05/08/25 14:03 Aspirin 81 Mg Chewable Tablet PO 81 mg DAILY SOL Administration Atorvastatin Calcium 20 mg 05/02/25 18:00 05/08/25 18:14 Atorvastatin 20 Mg Tablet PO 20 mg QPM SOL Administration Benztropine Mesylate 2 mg 05/02/25 21:00 05/08/25 21:11 Benztropine Mesylate 1 Mg Tablet PO 2 mg HS SOL Administration Calcitriol 0.25 mcg 05/02/25 09:00 05/08/25 14:03 Calcitriol 0.25 Mcg Capsule PO 0.25 mcg DAILY SOL Administration Carvedilol 6.25 mg 05/02/25 09:00 05/08/25 21:11 Carvedilol 6.25 Mg Tablet PO 6.25 mg Q12H SOL Administration Dextrose 12.5 gm 05/02/25 07:34 Dextrose 50% 25 Gm/50 Ml Syringe IV PUSH PRN PRN Hypoglycemia Protocol Gabapentin 100 mg 05/03/25 21:00 05/08/25 21:15 Gabapentin 100 Mg Capsule PO 100 mg [id number] SOL Administration Glucagon 1 mg 05/02/25 07:34 Glucagon For Inj 1 Mg Vial IM PRN PRN Hypoglycemia Protocol Glucose 15 gm 05/02/25 07:34 Glucose Oral Gel 15 Gm Of Glucse In 37.5 Gm Tube PO PRN PRN Hypoglycemia Protocol Heparin Sodium (Porcine) 5,000 units 05/02/25 21:00 05/08/25 21:11 Heparin Sodium 5,000 Units/Ml Vial SUB-Q 5,000 units Q12HR SOL Administration Hydralazine HCl 25 mg 05/02/25 09:00 05/08/25 18:14 Hydralazine Hcl 25 Mg Tablet PO 25 mg TID SOL Administration Dextrose 1,000 mls @ 100 mls/hr 05/02/25 07:34 Dextrose 5% 1,000 Ml IVPB PRN PRN Hypoglycemia Protocol Albumin Human 50 mls @ 999 mls/hr 05/03/25 06:34 05/05/25 12:54 Albutein IVPB 06/02/25 06:33 999 mls/hr Q10M PRN Administration HYPOTENSION Insulin Aspart 3 - 6 units 05/05/25 08:00 05/08/25 18:20 Insulin Aspart (*Bkc) 100 Units/Ml SUB-Q Not Given TIDWM SOL Protocol Insulin Aspart 4 units 05/05/25 17:00 05/08/25 18:19 Insulin Aspart (*Bkc) 100 Units/Ml SUB-Q 4 units TIDWM SOL Administration Insulin Glargine 14 units 05/07/25 21:00 05/08/25 21:15 Insulin Glargine (*Bkc) 100 Units/Ml SUB-Q 14 units HS SOL Administration Levetiracetam 250 mg/ 750 mg 05/02/25 09:00 05/08/25 21:10 Levetiracetam 500 mg PO 750 mg Q12HR SOL Administration Lidocaine 2 patch 05/02/25 07:33 Lidocaine 5% Patch TOPICAL DAILY PRN Back Pain Pantoprazole Sodium 40 mg 05/02/25 09:00 05/08/25 14:02 Pantoprazole 40 Mg Tablet PO 40 mg DAILY SOL Administration Tramadol/Acetaminophen 1 tab 05/02/25 07:33 Tramadol/Acetaminophen (*Crx) (Ultracet) 37.5/325 Mg Tablet PO Q6H PRN Pain 4-6 Radiology Results: ITS Impressions Chest X-Ray 05/01/25 22:45 IMPRESSION: No acute pulmonary findings. Head CT 05/02/25 06:57 IMPRESSION: 1. No acute intracranial findings. Labs Labs: Laboratory Results - last 24 hr 05/08/25 05/08/25 05/08/25 04:56 13:36 16:18 WBC 10.6 H RBC 3.03 L Hgb 9.4 L Hct 29.8 L MCV 98.3 MCH 31.0 MCHC 31.5 L RDW 14.5 Plt Count 256 MPV 10.8 H POC Capillary Glucose 99 128 H 05/08/25 05/09/25 21:12 07:29 WBC RBC Hgb Hct MCV MCH MCHC RDW Plt Count MPV POC Capillary Glucose 172 H 166 H Quality VTE Prophylaxis VTE prophylaxis: pharmacologic ordered
[2025-05-09 09:23] LABS: Hematocrit 31.5 % (37.0-47.0); Hemoglobin 9.9 g/dL (12.0-15.0); Mean Corpuscular HGB Conc 31.4 g/dl (32-36); Mean Corpuscular Hemoglobin 30.9 pg (26-34); Mean Corpuscular Volume 98.4 fl (80-100); Platelet Count Result 247 k/mm3 (150-375); Red Blood Count 3.20 M/mm3 (4.2-5.4); White Blood Count 10.9 K/mm3 (4.5-10.0)
[2025-05-09] MEDS: levETIRAcetam Tablet 250 MG, levETIRAcetam Tablet 500 MG 750 MG PO ×2 (09:45→21:02)
[2025-05-09] MEDS: ASPIRIN 81 MG CHEWABLE TABLET PO (09:45)
[2025-05-09] MEDS: PANTOPRAZOLE 40 MG TABLET PO (09:46)
[2025-05-09] MEDS: INSULIN ASPART (*BKC) 100 UNITS/ML SUB-Q ×3 (09:46→17:04)
[2025-05-09 09:53] LABS: Alanine Aminotransferase 16 U/L (6-35); Albumin Level 4.2 g/dL (3.5-5.1); Alkaline Phosphatase 105 U/L (38-126); Anion Gap 11 mmol/L (4-12); Aspartate Amino Transferase 28 U/L (14-36); Bilirubin,Total 0.4 mg/dL (0.2-1.3); Blood Urea Nitrogen 32 mg/dL (7-17); Calcium 10.1 mg/dL (8.4-10.2); Carbon Dioxide 28 mmol/L (22-30); Chloride 97 mmol/L (98-107); Estimated CRCL calculation 7 ml/min; Estimated Glomerular Filt Rate 7; Glucose 159 mg/dL (65-110); Potassium 4.7 mmol/L (3.4-5.0); Sodium 136 mmol/L (137-145); Total Protein 7.9 g/dL (6.3-8.2)
--- NOTE | 2025-05-09 10:06 | P.PNNP_ITS ---
Progress Note: A&P Assessment and Plan (1) End stage renal disease: Code(s): N18.6 - End stage renal disease Status: Chronic Assessment and Plan: * HD tomorrow * continue Thu/Thu/Thursday dialysis schedule while hospitalized * eventually transition back to home HD (if discharged back home) * follow electrolytes, volume status, and clearance * outpatient dialysis unit = [facility] * primary digital imaging technician = Dr. Markie Ryan (2) Seizure-like activity: Code(s): R56.9 - Unspecified convulsions Status: Acute Assessment and Plan: * reported history but no outpatient medications for this * elevated lactic acid noted without evidence of infection suspicious for seizure * seizure precautions * Head CT negative * on Keppra * Neurology recommendations noted (3) Anemia: Qualifiers: Anemia type: unspecified type Qualified Code(s): D64.9 - Anemia, unspecified Code(s): D64.9 - Anemia, unspecified Status: Chronic Assessment and Plan: * due to ESRD * [facility]/Epogen with HD * follow trend of H/H (4) Congestive heart failure: Qualifiers: Heart failure chronicity: chronic Heart failure type: diastolic Q ualified Code(s): I50.32 - Chronic diastolic (congestive) heart failure Code(s): I50.9 - Heart failure, unspecified Status: Chronic Assessment and Plan: * compensated at this time * fluid removal with HD to maintain euvolemia * follow volume status (5) Hypertension: Qualifiers: Hypertension type: unspecified Qualified Code(s): I10 - Essential (primary) hypertension Code(s): I10 - Essential (primary) hypertension Status: Chronic Assessment and Plan: * reasonable control at this time * adjust medications as needed * follow trend of hemodynamics (6) Insulin dependent diabetes mellitus: Status: Chronic Assessment and Plan: * follow accu-cheks * glycemic control per hospitalist Will continue to follow. L Subjective Date/time seen: 05/09/25 10:06 Interval history: Follow-up for end stage renal disease on hemodialysis (home hemodialysis). Tolerated dialysis treatment yesterday without any issues or problems; overall, reports feeling reasonably well without any acute issues/complaints voiced when see; no events overnight or earlier this morning. Exam 2 Narrative: General: elderly female in NAD Heart: normal S1 and S2; no rub Lungs: clear to auscultation Abdomen: soft, nontender, nondistended, positive bowel sounds Extremities: no cyanosis or clubbing; no edema Skin: warm and dry Objective Data Vital Signs Vital Signs: Vital Signs Temp Pulse Resp BP Pulse Ox O2 Del Method 05/09/25 09:48 60 05/09/25 08:00 Room Air 05/09/25 08:00 97.4 F L 71 14 103/54 L 93 05/09/25 04:00 97.2 F L 58 L 16 112/36 L 98 05/09/25 00:00 97.4 F L 62 20 122/65 96 05/08/25 21:11 66 05/08/25 20:00 Room Air 05/08/25 20:00 97.2 F L 69 22 H 114/77 95 05/08/25 18:19 134/116 H 05/08/25 16:00 97.6 F 67 14 98/56 L 94 05/08/25 14:03 64 05/08/25 12:47 97.9 F 66 18 110/50 L 99 05/08/25 12:40 65 99/48 L 05/08/25 12:30 66 117/50 L 05/08/25 12:15 62 142/83 H Intake/Output Intake/Output: Intake & Output 05/06/25 05/07/25 05/08/25 05/09/25 23:59 23:59 23:59 23:59 Intake Total 778 1290 0 500 Output Total 936 Balance 778 1290 -936 500 Meds/Results Medications: Active Medications Generic Name Dose Route Start Last Admin Trade Name Lisa PRN Reason Stop Dose Admin Acetaminophen 650 mg 05/02/25 07:33 Acetaminophen 325 Mg Tablet PO Q6H PRN Pain Aspirin 81 mg 05/02/25 09:00 05/09/25 09:45 Aspirin 81 Mg Chewable Tablet PO 81 mg DAILY SOL Administration Atorvastatin Calcium 20 mg 05/02/25 18:00 05/08/25 18:14 Atorvastatin 20 Mg Tablet PO 20 mg QPM SOL Administration Benztropine Mesylate 2 mg 05/02/25 21:00 05/08/25 21:11 Benztropine Mesylate 1 Mg Tablet PO 2 mg HS SOL Administration Calcitriol 0.25 mcg 05/02/25 09:00 05/09/25 09:45 Calcitriol 0.25 Mcg Capsule PO 0.25 mcg DAILY OSL Administration Carvedilol 6.25 mg 05/02/25 09:00 05/09/25 09:48 Carvedilol 6.25 Mg Tablet PO 6.25 mg Q12H SOL Administration Dextrose 12.5 gm 05/02/25 07:34 Dextrose 50% 25 Gm/50 Ml Syringe IV PUSH PRN PRN Hypoglycemia Protocol Gabapentin 100 mg 05/03/25 21:00 05/08/25 21:15 Gabapentin 100 Mg Capsule PO 100 mg [id number]@2100 SOL Administration Glucagon 1 mg 05/02/25 07:34 Glucagon For Inj 1 Mg Vial IM PRN PRN Hypoglycemia Protocol Glucose 15 gm 05/02/25 07:34 Glucose Oral Gel 15 Gm Of Glucse In 37.5 Gm Tube PO PRN PRN Hypoglycemia Protocol Heparin Sodium (Porcine) 5,000 units 05/02/25 21:00 05/09/25 09:46 Heparin Sodium 5,000 Units/Ml Vial SUB-Q 5,000 units Q12HR SOL Administration Hydralazine HCl 25 mg 05/02/25 09:00 05/09/25 09:45 Hydralazine Hcl 25 Mg Tablet PO 25 mg TID SOL Administration Dextrose 1,000 mls @ 100 mls/hr 05/02/25 07:34 Dextrose 5% 1,000 Ml IVPB PRN PRN Hypoglycemia Protocol Albumin Human 50 mls @ 999 mls/hr 05/03/25 06:34 05/05/25 12:54 Albutein IVPB 06/02/25 06:33 999 mls/hr Q10M PRN Administration HYPOTENSION Insulin Aspart 3 - 6 units 05/05/25 08:00 05/09/25 11:49 Insulin Aspart (*Bkc) 100 Units/Ml SUB-Q Not Given TIDWM SOL Protocol Insulin Aspart 4 units 05/05/25 17:00 05/09/25 09:46 Insulin Aspart (*Bkc) 100 Units/Ml SUB-Q 4 units TIDWM SOL Administration Insulin Glargine 14 units 05/07/25 21:00 05/08/25 21:15 Insulin Glargine (*Bkc) 100 Units/Ml SUB-Q 14 units HS SOL Administration Levetiracetam 250 mg/ 750 mg 05/02/25 09:00 05/09/25 09:45 Levetiracetam 500 mg PO 750 mg Q12HR SOL Administration Lidocaine 2 patch 05/02/25 07:33 Lidocaine 5% Patch TOPICAL DAILY PRN Back Pain Pantoprazole Sodium 40 mg 05/02/25 09:00 05/09/25 09:46 Pantoprazole 40 Mg Tablet PO 40 mg DAILY SOL Administration Tramadol/Acetaminophen 1 tab 05/02/25 07:33 Tramadol/Acetaminophen (*Crx) (Ultracet) 37.5/325 Mg Tablet PO Q6H PRN Pain 4-6 Radiology Results: ITS Impressions Chest X-Ray 05/01/25 22:45 IMPRESSION: No acute pulmonary findings. Head CT 05/02/25 06:57 IMPRESSION: 1. No acute intracranial findings. Labs Labs: Laboratory Tests 05/09/25 09:02 05/09/25 09:02 Calcium 10.1 Total Bilirubin 0.4 AST 28 ALT 16 Alkaline Phosphatase 105 Total Protein 7.9 Albumin 4.2 Microbiology 05/02/25 02:05 Blood Blood Culture - Final 05/02/25 02:05 Blood Blood Culture - Final
--- NOTE | 2025-05-09 10:49 | PCPTNOTE ---
Attempted to see patient for PT, however patient refused due to not feeling well today.
--- NOTE | 2025-05-09 14:53 | PCPTNOTE ---
Attempted to see patient for PT, however patient declined due to not feeling well.
[2025-05-09] MEDS: ATORVASTATIN 20 MG TABLET PO (17:04)
[2025-05-09] MEDS: BENZTROPINE MESYLATE 1 MG TABLET 2 MG PO (21:05)
[2025-05-09] MEDS: INSULIN GLARGINE (*BKC) 100 UNITS/ML 14 UNITS SUB-Q (21:06)
[2025-05-10] VITALS (25 sets, daily range): BP systolic 94–147; BP diastolic 42–89; PULSE 57–84; RESP 14–20; TEMP 35.8–37; O2SAT 96–100
[2025-05-10 06:43] LABS: Hematocrit 31.7 % (37.0-47.0); Hemoglobin 10.1 g/dL (12.0-15.0); Mean Corpuscular HGB Conc 31.9 g/dl (32-36); Mean Corpuscular Hemoglobin 31.4 pg (26-34); Mean Corpuscular Volume 98.4 fl (80-100); Platelet Count Result 250 k/mm3 (150-375); Red Blood Count 3.22 M/mm3 (4.2-5.4); White Blood Count 9.8 K/mm3 (4.5-10.0)
[2025-05-10 07:06] LABS: Alanine Aminotransferase 15 U/L (6-35); Albumin Level 4.0 g/dL (3.5-5.1); Alkaline Phosphatase 98 U/L (38-126); Anion Gap 13 mmol/L (4-12); Aspartate Amino Transferase 24 U/L (14-36); Bilirubin,Total 0.4 mg/dL (0.2-1.3); Blood Urea Nitrogen 40 mg/dL (7-17); Calcium 10.1 mg/dL (8.4-10.2); Carbon Dioxide 26 mmol/L (22-30); Chloride 98 mmol/L (98-107); Estimated CRCL calculation 5 ml/min; Estimated Glomerular Filt Rate 5; Glucose 173 mg/dL (65-110); Potassium 4.7 mmol/L (3.4-5.0); Sodium 137 mmol/L (137-145); Total Protein 7.5 g/dL (6.3-8.2)
--- NOTE | 2025-05-10 08:23 | PM.IMPN ---
Progress Note: A&P Assessment and Plan (1) Seizure-like activity: Code(s): R56.9 - Unspecified convulsions Status: Acute Assessment and Plan: Per family, patient was about an hour and a half into her regular dialysis when her blood pressure dropped to the 80s/50s so it was stopped and she was given 300 mL of fluid. After this, she had vomiting x2 before approximately 1-2 minute episode of seizure-like activity. Ddx: seizure vs hypotension vs arrhythmia vs electrolyte imbalance - Family reports prior seizure like history though no antiseizure medications started at that time, does not follow neurology - Lactic elevated on admission at 4.9, furthering suspicion for seizure. Received IV fluids in the ED and now downtrending. No signs of infection. - Seizure precautions - Telemetry discontinued as no arrhythmias noted since admission - Head CT showed no acute intracranial findings - EEG obtained, read pending - Patient was given a loading dose of 1500 mg Keppra in the ED, remains on keppra 750 mg BID - Neurology consulted - PT/OT recommending SNF. Care coordination following for placement. Remains on keppra as above. AOx2 (person, place) on assessment. 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 Continue to monitor. (3) Anemia: Code(s): D64.9 - Anemia, unspecified Status: Acute Assessment and Plan: Anemia of chronic disease secondary to ESRD GARFIELD/Epogen with HD per nephrology Denies active bleeding Trend H/H 05/09- hg 9.9 today, continue to monitor (4) Heart failure with preserved ejection fraction: Code(s): I50.30 - Unspecified diastolic (congestive) heart failure Status: Chronic Assessment and Plan: Chronic, does not appear in acute exacerbation - Current medications: carvedilol 6.25 mg q12, fluid removal with HD to maintain euvolemia - Chest XR: no acute pulmonary findings - Echo 06/28/24: [id number]% with grade I diastolic dysfunction - Monitor vital signs, I&Os, BUN/creatinine, daily weights, neuro status and patient is a fall risk - Monitor serum electrolytes, Keep serum Potassium>4 and serum Magnesium>2 and CBC Remains euvolemic. Continue to monitor. (5) Hypertension: Qualifiers: Hypertension type: unspecified Qualified Code(s): I10 - Essential (primary) hypertension Code(s): I10 - Essential (primary) hypertension Status: Chronic Assessment and Plan: Chronic, continue home medications - carvedilol 6.25 mg daily and hydralazine 25 mg TID - blood pressures reviewed and stable, continue to monitor (6) End stage renal disease on dialysis: Code(s): N18.6 - End stage renal disease; Z99.2 - Dependence on renal dialysis Status: Acute Assessment and Plan: Chronic Nephrology consulted continue dialysis schedule while hospitalized, eventually transition back to home HD on discharge follow electrolytes, volume status, and clearance outpatient dialysis unit = [facility] primary retread builder = Dr. Markie Ryan nephrology following for dialysis [id number] (7) Parkinsons: Code(s): G20.A1 - Parkinson's disease without dyskinesia, without mention of fluctuations Status: Acute Assessment and Plan: Chronic, continue home medications Time Spent With Patient Time with patient: 25 - 35 minutes Subjective Date/time seen: 05/10/25 08:23 Interval history: 74 year old female with diabetes, ESRD on HD //sat, Parkinson's, diabetes, HFpEF, dementia, anemia, and schizophrenia presents to the hospital for seizure like activity. Patient is pleasant lying comfortably in bed. She remains alert and oriented x2. She has no complaints denying chest pain, palpitations, shortness of breath, nausea/vomiting, abdominal pain, and dizziness/lightheadedness. Care coordination is following and she has acceptance at [place] for SNF however no bed currently available. Had dialysis today. Review of Systems Review of Systems: All systems reviewed & are unremarkable except as noted in HPI and below Exam Narrative: General: female in no acute respiratory distress who is nontoxic appearing, lying semirecumbent in bed HEENT: Extraocular movement intact. Sclera clear and anicteric. No facial asymmetry. Chest: Lungs are clear to auscultation bilaterally. No wheezes or crackles. CV: Heart was regular rate and rhythm. Abd: Abdomen was soft. Nontender. Nondistended. Positive bowel sounds. Ext: No clubbing, cyanosis, or edema. DP pulses bilaterally. Neuro: Patient is alert and oriented x2 (person,place) following commands. Speech is clear. Const: General: comfortable Resp: Effort & Inspection: normal respiratory effort Objective Data Vital Signs Vital Signs: Vital Signs - 24 hr 05/09/25 09:48 05/09/25 12:00 05/09/25 16:00 Temperature 98.2 F 97.3 F L Pulse Rate 60 73 69 Respiratory Rate 16 14 Blood Pressure 103/54 L 100/56 L Pulse Oximetry 98 94 Oxygen Delivery 05/09/25 20:00 05/09/25 21:20 05/10/25 01:06 Temperature 97.2 F L Pulse Rate 58 L 57 L 57 L Respiratory Rate 18 Blood Pressure 104/33 L Pulse Oximetry 95 Oxygen Delivery Room Air 05/10/25 04:00 05/10/25 05:07 Temperature 97.4 F L 97.4 F L Pulse Rate 70 70 Respiratory Rate 18 20 Blood Pressure 100/75 100/75 Pulse Oximetry 99 99 Oxygen Delivery Intake/Output Intake/Output: Intake & Output 05/07/25 05/08/25 05/09/25 05/10/25 23:59 23:59 23:59 23:59 Intake Total 1290 0 618 250 Output Total 936 Balance 1290 -936 618 250 Meds/Results Medications: Active Medications Generic Name Dose Route Start Last Admin Trade Name Freq PRN Reason Stop Dose Admin Acetaminophen 650 mg 05/02/25 07:33 Acetaminophen 325 Mg Tablet PO Q6H PRN Pain Aspirin 81 mg 05/02/25 09:00 05/09/25 09:45 Aspirin 81 Mg Chewable Tablet PO 81 mg DAILY SOL Administration Atorvastatin Calcium 20 mg 05/02/25 18:00 05/09/25 17:04 Atorvastatin 20 Mg Tablet PO 20 mg QPM SOL Administration Benztropine Mesylate 2 mg 05/02/25 21:00 05/09/25 21:05 Benztropine Mesylate 1 Mg Tablet PO 2 mg HS SOL Administration Calcitriol 0.25 mcg 05/02/25 09:00 05/09/25 09:45 Calcitriol 0.25 Mcg Capsule PO 0.25 mcg DAILY SOL Administration Carvedilol 6.25 mg 05/02/25 09:00 05/10/25 01:06 Carvedilol 6.25 Mg Tablet PO Not Given Q12H SOL Dextrose 12.5 gm 05/02/25 07:34 Dextrose 50% 25 Gm/50 Ml Syringe IV PUSH PRN PRN Hypoglycemia Protocol Epoetin Lucius-epbx 10,000 units 05/10/25 18:11 Epoetin Lucius-Epbx 10,000 Units/Ml Vial IV PUSH 05/10/25 18:12 ONCE ONE Gabapentin 100 mg 05/03/25 21:00 05/08/25 21:15 Gabapentin 100 Mg Capsule PO 100 mg [id number] SOL Administration Glucagon 1 mg 05/02/25 07:34 Glucagon For Inj 1 Mg Vial IM PRN PRN Hypoglycemia Protocol Glucose 15 gm 05/02/25 07:34 Glucose Oral Gel 15 Gm Of Glucse In 37.5 Gm Tube PO PRN PRN Hypoglycemia Protocol Heparin Sodium (Porcine) 5,000 units 05/02/25 21:00 05/09/25 21:06 Heparin Sodium 5,000 Units/Ml Vial SUB-Q 5,000 units Q12HR SOL Administration Hydralazine HCl 25 mg 05/02/25 09:00 05/09/25 17:04 Hydralazine Hcl 25 Mg Tablet PO 25 mg TID SOL Administration Dextrose 1,000 mls @ 100 mls/hr 05/02/25 07:34 Dextrose 5% 1,000 Ml IVPB PRN PRN Hypoglycemia Protocol Albumin Human 50 mls @ 999 mls/hr 05/03/25 06:34 05/05/25 12:54 Albutein IVPB 06/02/25 06:33 999 mls/hr Q10M PRN Administration HYPOTENSION Insulin Aspart 3 - 6 units 05/05/25 08:00 05/09/25 16:35 Insulin Aspart (*Bkc) 100 Units/Ml SUB-Q Not Given TIDWM [facility] Protocol Insulin Aspart 4 units 05/05/25 17:00 05/09/25 17:04 Insulin Aspart (*Bkc) 100 Units/Ml SUB-Q 4 units TIDWM SOL Administration Insulin Glargine 14 units 05/07/25 21:00 05/09/25 21:06 Insulin Glargine (*Bkc) 100 Units/Ml SUB-Q 14 units HS SOL Administration Levetiracetam 250 mg/ 750 mg 05/02/25 09:00 05/09/25 21:02 Levetiracetam 500 mg PO 750 mg Q12HR SOL Administration Lidocaine 2 patch 05/02/25 07:33 Lidocaine 5% Patch TOPICAL DAILY PRN Back Pain Pantoprazole Sodium 40 mg 05/02/25 09:00 05/09/25 09:46 Pantoprazole 40 Mg Tablet PO 40 mg DAILY SOL Administration Tramadol/Acetaminophen 1 tab 05/02/25 07:33 Tramadol/Acetaminophen (*Crx) (Ultracet) 37.5/325 Mg Tablet PO Q6H PRN Pain 4-6 Radiology Results: ITS Impressions Chest X-Ray 05/01/25 22:45 IMPRESSION: No acute pulmonary findings. Head CT 05/02/25 06:57 IMPRESSION: 1. No acute intracranial findings. Labs Labs: Laboratory Results - last 24 hr 05/09/25 05/09/25 05/09/25 09:02 11: 16:27 WBC 10.9 H RBC 3.20 L Hgb 9.9 L Hct 31.5 L MCV 98.4 MCH 30.9 MCHC 31.4 L RDW 14.6 H Plt Count 247 MPV 10.4 Sodium 136 L Potassium 4.7 Chloride 97 L Carbon Dioxide 28 Anion Gap 11 BUN 32 H D Creatinine 5.78 H Estim Creat Clear Calc 7 Estimated GFR 7 L Glucose 159 H POC Capillary Glucose 168 H 165 H Calcium 10.1 Total Bilirubin 0.4 AST 28 ALT 16 Alkaline Phosphatase 105 Total Protein 7.9 Albumin 4.2 05/09/25 05/10/25 05/10/25 20:49 06:22 07:34 WBC 9.8 RBC 3.22 L Hgb 10.1 L Hct 31.7 L MCV 98.4 MCH 31.4 MCHC 31.9 L RDW 14.8 H Plt Count 250 MPV 10.1 Sodium 137 Potassium 4.7 Chloride 98 Carbon Dioxide 26 Anion Gap 13 H BUN 40 H Creatinine 7.60 H Estim Creat Clear Calc 5 Estimated GFR 5 L Glucose 173 H POC Capillary Glucose 159 H 181 H Calcium 10.1 Total Bilirubin 0.4 AST 24 ALT 15 Alkaline Phosphatase 98 Total Protein 7.5 Albumin 4.0 Quality VTE Prophylaxis VTE prophylaxis: pharmacologic ordered
[2025-05-10] MEDS: levETIRAcetam Tablet 250 MG, levETIRAcetam Tablet 500 MG 750 MG PO ×2 (09:19→20:20)
[2025-05-10] MEDS: PANTOPRAZOLE 40 MG TABLET PO (09:19)
[2025-05-10] MEDS: ASPIRIN 81 MG CHEWABLE TABLET PO (09:19)
[2025-05-10] MEDS: EPOETIN ALFA-EPBX 10,000 UNITS/ML VIAL 10000 UNITS IV PUSH (10:22)
[2025-05-10] MEDS: SODIUM CHLORIDE 0.9% IV 1,000 ML 999 ML IV CONT (10:23)
--- NOTE | 2025-05-10 10:36 | PCPTNOTE ---
The patient treatment was not able to be completed on 05/10/2025 due to patient out of the room for dialysis. Will plan to continue treatment per plan of care.
--- NOTE | 2025-05-10 10:40 | P.PNNP_ITS ---
Progress Note: A&P Assessment and Plan (1) End stage renal disease: Code(s): N18.6 - End stage renal disease Status: Chronic Assessment and Plan: * HD today * continue Thu/Thu/Thursday dialysis schedule while hospitalized * eventually transition back to home HD (if discharged back home) * follow electrolytes, volume status, and clearance * outpatient dialysis unit = [facility] * primary community health advocate = Dr. Markie Ryan (2) Seizure-like activity: Code(s): R56.9 - Unspecified convulsions Status: Acute Assessment and Plan: * reported history but no outpatient medications for this * elevated lactic acid noted without evidence of infection suspicious for seizure * seizure precautions * Head CT negative * on Keppra * Neurology recommendations noted (3) Anemia: Qualifiers: Anemia type: unspecified type Qualified Code(s): D64.9 - Anemia, unspecified Code(s): D64.9 - Anemia, unspecified Status: Chronic Assessment and Plan: * due to ESRD * GARFIELD/Epogen with HD * follow trend of H/H (4) Congestive heart failure: Qualifiers: Heart failure type: diastolic Heart failure chronicity: chronic Q ualified Code(s): I50.32 - Chronic diastolic (congestive) heart failure Code(s): I50.9 - Heart failure, unspecified Status: Chronic Assessment and Plan: * compensated at this time * fluid removal with HD to maintain euvolemia * follow volume status (5) Hypertension: Qualifiers: Hypertension type: unspecified Qualified Code(s): I10 - Essential (primary) hypertension Code(s): I10 - Essential (primary) hypertension Status: Chronic Assessment and Plan: * reasonable control at this time * adjust medications as needed * follow trend of hemodynamics (6) Insulin dependent diabetes mellitus: Status: Chronic Assessment and Plan: * follow accu-cheks * glycemic control per hospitalist Will continue to follow. L Subjective Date/time seen: 05/10/25 10:40 Interval history: Follow-up for end stage renal disease on hemodialysis (home hemodialysis). Tolerating dialysis treatment at the time of my visit (seen on HD at 10:30am); resting comfortably when seen; no apparent distress noted; no other issues/events overnight or earlier this morning. Exam 2 Narrative: General: elderly female in NAD Heart: normal S1 and S2; no rub Lungs: clear to auscultation Abdomen: soft, nontender, nondistended, positive bowel sounds Extremities: no cyanosis or clubbing; no edema Skin: warm and intact Objective Data Vital Signs Vital Signs: Vital Signs Temp Pulse Resp BP Pulse Ox O2 Del Method 05/10/25 10:30 81 100/55 L 05/10/25 10:15 63 100/55 L 05/10/25 10:01 84 103/51 L 05/10/25 09:45 67 107/57 L 05/10/25 09:30 60 117/52 L 05/10/25 09:15 60 127/61 05/10/25 09:00 59 L 136/71 05/10/25 08:45 60 126/58 L 05/10/25 08:30 60 147/62 H 05/10/25 08:21 61 142/65 H 05/10/25 08:15 97.2 F L 63 18 136/65 99 05/10/25 05:07 97.4 F L 70 20 100/75 99 05/10/25 04:00 97.4 F L 70 18 100/75 99 05/10/25 01:06 57 L 05/09/25 21:20 57 L Room Air 05/09/25 20:00 97.2 F L 58 L 18 104/33 L 95 05/09/25 16:00 97.3 F L 69 14 100/56 L 94 Intake/Output Intake/Output: Intake & Output 05/07/25 05/08/25 05/09/25 05/10/25 23:59 23:59 23:59 23:59 Intake Total 1290 0 618 250 Output Total 936 1500 Balance 1290 -936 618 -1250 Meds/Results Medications: Active Medications Generic Name Dose Route Start Last Admin Trade Name Freq PRN Reason Stop Dose Admin Acetaminophen 650 mg 05/02/25 07:33 Acetaminophen 325 Mg Tablet PO Q6H PRN Pain Aspirin 81 mg 05/02/25 09:00 05/10/25 09:19 Aspirin 81 Mg Chewable Tablet PO 81 mg DAILY SOL Administration Atorvastatin Calcium 20 mg 05/02/25 18:00 05/09/25 17:04 Atorvastatin 20 Mg Tablet PO 20 mg QPM SOL Administration Benztropine Mesylate 2 mg 05/02/25 21:00 05/09/25 21:05 Benztropine Mesylate 1 Mg Tablet PO 2 mg HS SOL Administration Calcitriol 0.25 mcg 05/02/25 09:00 05/10/25 09:19 Calcitriol 0.25 Mcg Capsule PO 0.25 mcg DAILY SOL Administration Carvedilol 6.25 mg 05/02/25 09:00 05/10/25 01:06 Carvedilol 6.25 Mg Tablet PO Not Given Q12H SOL Dextrose 12.5 gm 05/02/25 07:34 Dextrose 50% 25 Gm/50 Ml Syringe IV PUSH PRN PRN Hypoglycemia Protocol Epoetin Lucius-epbx 10,000 units 05/10/25 18:11 05/10/25 10:22 Epoetin Lucius-Epbx 10,000 Units/Ml Vial IV PUSH 05/10/25 18:12 10,000 units ONCE ONE Administration Gabapentin 100 mg 05/03/25 21:00 05/08/25 21:15 Gabapentin 100 Mg Capsule PO 100 mg [id number] SOL Administration Glucagon 1 mg 05/02/25 07:34 Glucagon For Inj 1 Mg Vial IM PRN PRN Hypoglycemia Protocol Glucose 15 gm 05/02/25 07:34 Glucose Oral Gel 15 Gm Of Glucse In 37.5 Gm Tube PO PRN PRN Hypoglycemia Protocol Heparin Sodium (Porcine) 5,000 units 05/02/25 21:00 05/10/25 09:19 Heparin Sodium 5,000 Units/Ml Vial SUB-Q 5,000 units Q12HR SOL Administration Hydralazine HCl 25 mg 05/02/25 09:00 05/09/25 17:04 Hydralazine Hcl 25 Mg Tablet PO 25 mg TID SOL Administration Dextrose 1,000 mls @ 100 mls/hr 05/02/25 07:34 Dextrose 5% 1,000 Ml IVPB PRN PRN Hypoglycemia Protocol Albumin Human 50 mls @ 999 mls/hr 05/03/25 06:34 05/05/25 12:54 Albutein IVPB 06/02/25 06:33 999 mls/hr Q10M PRN Administration HYPOTENSION Insulin Aspart 3 - 6 units 05/05/25 08:00 05/10/25 09:14 Insulin Aspart (*Bkc) 100 Units/Ml SUB-Q Not Given TIDWM SOL Protocol Insulin Aspart 4 units 05/05/25 17:00 05/10/25 08:15 Insulin Aspart (*Bkc) 100 Units/Ml SUB-Q Not Given TIDWM SOL Insulin Glargine 14 units 05/07/25 21:00 05/09/25 21:06 Insulin Glargine (*Bkc) 100 Units/Ml SUB-Q 14 units HS SOL Administration Levetiracetam 250 mg/ 750 mg 05/02/25 09:00 05/10/25 09:19 Levetiracetam 500 mg PO 750 mg Q12HR SOL Administration Lidocaine 2 patch 05/02/25 07:33 Lidocaine 5% Patch TOPICAL DAILY PRN Back Pain Pantoprazole Sodium 40 mg 05/02/25 09:00 05/10/25 09:19 Pantoprazole 40 Mg Tablet PO 40 mg DAILY SOL Administration Tramadol/Acetaminophen 1 tab 05/02/25 07:33 Tramadol/Acetaminophen (*Crx) (Ultracet) 37.5/325 Mg Tablet PO Q6H PRN Pain 4-6 Radiology Results: ITS Impressions Chest X-Ray 05/01/25 22:45 IMPRESSION: No acute pulmonary findings. Head CT 05/02/25 06:57 IMPRESSION: 1. No acute intracranial findings. Labs Labs: Laboratory Tests 05/10/25 06:22 05/10/25 06:22 Calcium 10.1 Total Bilirubin 0.4 AST 24 ALT 15 Alkaline Phosphatase 98 Total Protein 7.5 Albumin 4.0
--- NOTE | 2025-05-10 11:38 | PCOTNOTE ---
Attempted to see Patient at this time. Patient is out od the room, in dialysis.
[2025-05-10] MEDS: INSULIN ASPART (*BKC) 100 UNITS/ML SUB-Q ×2 (12:46→17:04)
[2025-05-10] MEDS: ATORVASTATIN 20 MG TABLET PO (17:05)
[2025-05-10] MEDS: BENZTROPINE MESYLATE 1 MG TABLET 2 MG PO (20:20)
[2025-05-10] MEDS: GABAPENTIN 100 MG CAPSULE PO (20:26)
[2025-05-10] MEDS: INSULIN GLARGINE (*BKC) 100 UNITS/ML 14 UNITS SUB-Q (20:32)
[2025-05-11 04:40] VITALS: BP 121/42; PULSE 57; RESP 16; TEMP 36.1; O2SAT 97
[2025-05-11 05:52] LABS: Hematocrit 30.7 % (37.0-47.0); Hemoglobin 9.4 g/dL (12.0-15.0); Mean Corpuscular HGB Conc 30.6 g/dl (32-36); Mean Corpuscular Hemoglobin 30.3 pg (26-34); Mean Corpuscular Volume 99.0 fl (80-100); Platelet Count Result 237 k/mm3 (150-375); Red Blood Count 3.10 M/mm3 (4.2-5.4); White Blood Count 10.8 K/mm3 (4.5-10.0)
[2025-05-11 06:04] LABS: Alanine Aminotransferase 19 U/L (6-35); Albumin Level 4.0 g/dL (3.5-5.1); Alkaline Phosphatase 86 U/L (38-126); Anion Gap 12 mmol/L (4-12); Aspartate Amino Transferase 48 U/L (14-36); Bilirubin,Total 0.3 mg/dL (0.2-1.3); Blood Urea Nitrogen 28 mg/dL (7-17); Calcium 9.5 mg/dL (8.4-10.2); Carbon Dioxide 26 mmol/L (22-30); Chloride 97 mmol/L (98-107); Estimated CRCL calculation 6 ml/min; Estimated Glomerular Filt Rate 6; Glucose 168 mg/dL (65-110); Potassium 4.2 mmol/L (3.4-5.0); Sodium 135 mmol/L (137-145); Total Protein 7.6 g/dL (6.3-8.2)
[2025-05-11] MEDS: ASPIRIN 81 MG CHEWABLE TABLET PO (09:01)
[2025-05-11] MEDS: PANTOPRAZOLE 40 MG TABLET PO (09:01)
[2025-05-11 09:02] VITALS: PULSE 60
[2025-05-11] MEDS: levETIRAcetam Tablet 250 MG, levETIRAcetam Tablet 500 MG 750 MG PO (09:02)
[2025-05-11] MEDS: INSULIN ASPART (*BKC) 100 UNITS/ML SUB-Q ×3 (09:03→12:24)
[2025-05-11 14:00] VITALS: BP 101/60; PULSE 64; RESP 16; TEMP 36.4; O2SAT 100
--- NOTE | 2025-05-11 14:42 | PM.PNNEP ---
Progress Note: A&P Assessment and Plan (1) End stage renal disease: Code(s): N18.6 - End stage renal disease Status: Chronic Assessment and Plan: HD tomorrow continue Thu/Thu/Thursday dialysis schedule while hospitalized eventually transition back to home HD (if discharged back home) follow electrolytes, volume status, and clearance outpatient dialysis unit = [facility] primary food service representative = Dr. Markie Ryan (2) Seizure-like activity: Code(s): R56.9 - Unspecified convulsions Status: Acute Assessment and Plan: reported history but no outpatient medications for this elevated lactic acid noted without evidence of infection suspicious for seizure seizure precautions Head CT negative on [facility] Neurology recommendations noted (3) Anemia: Qualifiers: Anemia type: unspecified type Qualified Code(s): D64.9 - Anemia, unspecified Code(s): D64.9 - Anemia, unspecified Status: Chronic Assessment and Plan: due to ESRD [place]/Epogen with HD follow trend of H/H (4) Congestive heart failure: Qualifiers: Heart failure chronicity: chronic Heart failure type: diastolic Qualified Code(s): I50.32 - Chronic diastolic (congestive) heart failure Code(s): I50.9 - Heart failure, unspecified Status: Chronic Assessment and Plan: compensated at this time fluid removal with HD to maintain euvolemia follow volume status (5) Hypertension: Qualifiers: Hypertension type: unspecified Qualified Code(s): I10 - Essential (primary) hypertension Code(s): I10 - Essential (primary) hypertension Status: Chronic Assessment and Plan: reasonable control at this time adjust medications as needed follow trend of hemodynamics (6) Insulin dependent diabetes mellitus: Status: Chronic Assessment and Plan: follow accu-cheks glycemic control per hospitalist Will continue to follow. Subjective Date/time seen: 05/11/25 14:42 Interval history: Follow-up for end stage renal disease on hemodialysis (home hemodialysis). Tolerated dialysis treatment yesterday without any issues or problems; fluctuating hemodynamics noted but suspect related to vascular disease in upper extremities rather than true hypotension; no apparent distress boiced at the time of my visit. Exam Narrative: General: elderly female in NAD Heart: normal S1 and S2; no rub Lungs: clear to auscultation Abdomen: soft, nontender, nondistended, positive bowel sounds Extremities: no cyanosis or clubbing; no edema Skin: No rash Objective Data Vital Signs Vital Signs: Vital Signs - 24 hr 05/10/25 19:38 05/10/25 20:00 05/11/25 04:40 Temperature 98.0 F 96.9 F L Pulse Rate 60 57 L Respiratory Rate 17 16 Blood Pressure 111/57 L 121/42 L Pulse Oximetry 96 97 Oxygen Delivery Room Air 05/11/25 09:02 05/11/25 14:00 Temperature 97.5 F L Pulse Rate 60 64 Respiratory Rate 16 Blood Pressure 101/60 Pulse Oximetry 100 Oxygen Delivery Intake/Output Intake/Output: Intake & Output 05/08/25 05/09/25 05/10/25 05/11/25 23:59 23:59 23:59 23:59 Intake Total 0 618 712 720 Output Total 936 1500 100 Balance -936 618 -788 620 Meds/Results Medications: Active Medications Generic Name Dose Route Start Last Admin Trade Name Freq PRN Reason Stop Dose Admin Acetaminophen 650 mg 05/02/25 07:33 Acetaminophen 325 Mg Tablet PO Q6H PRN Pain Aspirin 81 mg 05/02/25 09:00 05/11/25 09:01 Aspirin 81 Mg Chewable Tablet PO 81 mg DAILY SOL Administration Atorvastatin Calcium 20 mg 05/02/25 18:00 05/11/25 18:43 Atorvastatin 20 Mg Tablet PO 20 mg QPM SOL Administration Benztropine Mesylate 2 mg 05/02/25 21:00 05/10/25 20:20 Benztropine Mesylate 1 Mg Tablet PO 2 mg HS SOL Administration Calcitriol 0.25 mcg 05/02/25 09:00 05/11/25 09:01 Calcitriol 0.25 Mcg Capsule PO 0.25 mcg DAILY SOL Administration Carvedilol 6.25 mg 05/02/25 09:00 05/11/25 09:02 Carvedilol 6.25 Mg Tablet PO 6.25 mg Q12H SOL Administration Dextrose 12.5 gm 05/02/25 07:34 Dextrose 50% 25 Gm/50 Ml Syringe IV PUSH PRN PRN Hypoglycemia Protocol Gabapentin 100 mg 05/03/25 21:00 05/10/25 20:26 Gabapentin 100 Mg Capsule PO 100 mg [id number] SOL Administration Glucagon 1 mg 05/02/25 07:34 Glucagon For Inj 1 Mg Vial IM PRN PRN Hypoglycemia Protocol Glucose 15 gm 05/02/25 07:34 Glucose Oral Gel 15 Gm Of Glucse In 37.5 Gm Tube PO PRN PRN Hypoglycemia Protocol Heparin Sodium (Porcine) 5,000 units 05/02/25 21:00 05/11/25 09:02 Heparin Sodium 5,000 Units/Ml Vial SUB-Q 5,000 units Q12HR SOL Administration Hydralazine HCl 25 mg 05/02/25 09:00 05/11/25 17:12 Hydralazine Hcl 25 Mg Tablet PO Not Given TID SOL Dextrose 1,000 mls @ 100 mls/hr 05/02/25 07:34 Dextrose 5% 1,000 Ml IVPB PRN PRN Hypoglycemia Protocol Albumin Human 50 mls @ 999 mls/hr 05/03/25 06:34 05/05/25 12:54 Albutein IVPB 06/02/25 06:33 999 mls/hr Q10M PRN Administration HYPOTENSION Insulin Aspart 3 - 6 units 05/05/25 08:00 05/11/25 17:13 Insulin Aspart (*Bkc) 100 Units/Ml SUB-Q Not Given TIDWM [facility] Protocol Insulin Aspart 4 units 05/05/25 17:00 05/11/25 17:13 Insulin Aspart (*Bkc) 100 Units/Ml SUB-Q Not Given TIDWM [facility] Insulin Glargine 14 units 05/07/25 21:00 05/10/25 20:32 Insulin Glargine (*Bkc) 100 Units/Ml SUB-Q 14 units HS SOL Administration Levetiracetam 250 mg/ 750 mg 05/02/25 09:00 05/11/25 09:02 Levetiracetam 500 mg PO 750 mg Q12HR SOL Administration Lidocaine 2 patch 05/02/25 07:33 Lidocaine 5% Patch TOPICAL DAILY PRN Back Pain Pantoprazole Sodium 40 mg 05/02/25 09:00 05/11/25 09:01 Pantoprazole 40 Mg Tablet PO 40 mg DAILY SOL Administration Tramadol/Acetaminophen 1 tab 05/02/25 07:33 Tramadol/Acetaminophen (*Crx) (Ultracet) 37.5/325 Mg Tablet PO Q6H PRN Pain 4-6 Radiology Results: ITS Impressions Chest X-Ray 05/01/25 22:45 IMPRESSION: No acute pulmonary findings. Head CT 05/02/25 06:57 IMPRESSION: 1. No acute intracranial findings. Labs Labs: Laboratory Tests 05/11/25 05:27 05/11/25 05:27 Calcium 9.5 Total Bilirubin 0.3 AST 48 H ALT 19 Alkaline Phosphatase 86 Total Protein 7.6 Albumin 4.0
--- NOTE | 2025-05-11 15:12 | P.PNIM_ITS ---
Progress Note: A&P Assessment and Plan (1) Seizure-like activity: Code(s): R56.9 - Unspecified convulsions Status: Acute Assessment and Plan: Per family, patient was about an hour and a half into her regular dialysis when her blood pressure dropped to the 80s/50s so it was stopped and she was given 300 mL of fluid. After this, she had vomiting x2 before approximately 1-2 minute episode of seizure-like activity. Ddx: seizure vs hypotension vs arrhythmia vs electrolyte imbalance - Family reports prior seizure like history though no antiseizure medications started at that time, does not follow neurology - Lactic elevated on admission at 4.9, furthering suspicion for seizure. Received IV fluids in the ED and now downtrending. No signs of infection. - Seizure precautions - Telemetry discontinued as no arrhythmias noted since admission - Head CT showed no acute intracranial findings - EEG obtained, read pending - Patient was given a loading dose of 1500 mg Keppra in the ED, remains on keppra 750 mg BID - Neurology consulted - PT/OT recommending SNF. Care coordination following for placement. Remains on keppra as above. AOx2 (person, place) on assessment. 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 chcf insulin use status Diabetes mellitus complication status: with kidney complications Diabetes mellitus complication detail: with chronic kidney disease Chronic kidney disease stage: on chronic dialysis Qualified Code(s): E11.22 - Type 2 diabetes mellitus with diabetic chronic kidney disease; N18.6 - End stage renal disease; Z99.2 - Dependence on renal dialysis Code(s): E11.9 - Type 2 diabetes mellitus without complications Status: Chronic Assessment and Plan: - hypoglycemia protocol - POC blood glucose ACHS - home medication - lantus 14 units and lispro SSI - correct regimen ordered - lantus 11 units ( 20% of home dose given stricter diet during hospitalization) and SSI - A1C 6.5 in 11/10/24 Glucose stable. Continue to monitor. BS remains under 200 (3) Anemia: Code(s): D64.9 - Anemia, unspecified Status: Acute Assessment and Plan: Anemia of chronic disease secondary to ESRD [facility]/Epogen with HD per nephrology Denies active bleeding Trend H/H 05/09- hg 9.9 today, continue to monitor (4) Heart failure with preserved ejection fraction: Code(s): I50.30 - Unspecified diastolic (congestive) heart failure Status: Chronic Assessment and Plan: Chronic, does not appear in acute exacerbation - Current medications: carvedilol 6.25 mg q12, fluid removal with HD to maintain euvolemia - Chest XR: no acute pulmonary findings - Echo 06/28/24: [id number]% with grade I diastolic dysfunction - Monitor vital signs, I&Os, BUN/creatinine, daily weights, neuro status and patient is a fall risk - Monitor serum electrolytes, Keep serum Potassium>4 and serum Magnesium>2 and CBC Remains euvolemic. Continue to monitor. (5) Hypertension: Qualifiers: Hypertension type: unspecified Qualified Code(s): I10 - Essential (primary) hypertension Code(s): I10 - Essential (primary) hypertension Status: Chronic Assessment and Plan: Chronic, continue home medications - carvedilol 6.25 mg daily and hydralazine 25 mg TID - blood pressures reviewed and stable, continue to monitor (6) End stage renal disease on dialysis: Code(s): N18.6 - End stage renal disease; Z99.2 - Dependence on renal dialysis Status: Acute Assessment and Plan: Chronic Nephrology consulted * continue dialysis schedule while hospitalized, eventually transition back to home HD on discharge * follow electrolytes, volume status, and clearance * outpatient dialysis unit = [facility] * primary coding and reimbursement specialist = Dr. Markie Ryan nephrology following for dialysis [id number] (7) Parkinsons: Code(s): G20.A1 - Parkinson's disease without dyskinesia, without mention of fluctuations Status: Acute Assessment and Plan: Chronic, continue home medications Time Spent With Patient Time with patient: Greater than 35 minutes Subjective Date/time seen: 05/11/25 15:12 Interval history: 74 year old female with diabetes, ESRD on HD tu//sat, Parkinson's, diabetes, HFpEF, dementia, anemia, and schizophrenia presents to the hospital for seizure like activity. Patient is pleasant lying comfortably in bed. She remains alert and oriented x2. She has no complaints denying chest pain, palpitations, shortness of breath, nausea/vomiting, abdominal pain, and dizziness/lightheadedness. Care coordination is following and she has acceptance at [facility] for SNF however no bed currently available. Had dialysis yesterday. NO acute events overnight. Review of Systems Review of Systems: All systems reviewed & are unremarkable except as noted in HPI and below Exam Narrative: General: female in no acute respiratory distress who is nontoxic appearing, lying semirecumbent in bed HEENT: Extraocular movement intact. Sclera clear and anicteric. No facial asymmetry. Chest: Lungs are clear to auscultation bilaterally. No wheezes or crackles. CV: Heart was regular rate and rhythm. Abd: Abdomen was soft. Nontender. Nondistended. Positive bowel sounds. Ext: No clubbing, cyanosis, or edema. DP pulses bilaterally. Neuro: Patient is alert and oriented x2 (person,place) following commands. Speech is clear. Const: General: comfortable Resp: Effort & Inspection: normal respiratory effort Objective Data Vital Signs Vital Signs: Vital Signs - 24 hr 05/10/25 19:38 05/10/25 20:00 05/11/25 04:40 Temperature 98.0 F 96.9 F L Pulse Rate 60 57 L Respiratory Rate 17 16 Blood Pressure 111/57 L 121/42 L Pulse Oximetry 96 97 Oxygen Delivery Room Air 05/11/25 09:02 05/11/25 14:00 Temperature 97.5 F L Pulse Rate 60 64 Respiratory Rate 16 Blood Pressure 101/60 Pulse Oximetry 100 Oxygen Delivery Intake/Output Intake/Output: Intake & Output 05/08/25 05/09/25 05/10/25 05/11/25 23:59 23:59 23:59 23:59 Intake Total 0 618 712 480 Output Total 936 1500 100 Balance -936 618 -788 380 Meds/Results Medications: Active Medications Generic Name Dose Route Start Last Admin Trade Name Freq PRN Reason Stop Dose Admin Acetaminophen 650 mg 05/02/25 07:33 Acetaminophen 325 Mg Tablet PO Q6H PRN Pain Aspirin 81 mg 05/02/25 09:00 05/11/25 09:01 Aspirin 81 Mg Chewable Tablet PO 81 mg DAILY SOL Administration Atorvastatin Calcium 20 mg 05/02/25 18:00 05/10/25 17:05 Atorvastatin 20 Mg Tablet PO 20 mg QPM SOL Administration Benztropine Mesylate 2 mg 05/02/25 21:00 05/10/25 20:20 Benztropine Mesylate 1 Mg Tablet PO 2 mg HS SOL Administration Calcitriol 0.25 mcg 05/02/25 09:00 05/11/25 09:01 Calcitriol 0.25 Mcg Capsule PO 0.25 mcg DAILY SOL Administration Carvedilol 6.25 mg 05/02/25 09:00 05/11/25 09:02 Carvedilol 6.25 Mg Tablet PO 6.25 mg Q12H SOL Administration Dextrose 12.5 gm 05/02/25 07:34 Dextrose 50% 25 Gm/50 Ml Syringe IV PUSH PRN PRN Hypoglycemia Protocol Gabapentin 100 mg 05/03/25 21:00 05/10/25 20:26 Gabapentin 100 Mg Capsule PO 100 mg [id number] SOL Administration Glucagon 1 mg 05/02/25 07:34 Glucagon For Inj 1 Mg Vial IM PRN PRN Hypoglycemia Protocol Glucose 15 gm 05/02/25 07:34 Glucose Oral Gel 15 Gm Of Glucse In 37.5 Gm Tube PO PRN PRN Hypoglycemia Protocol Heparin Sodium (Porcine) 5,000 units 05/02/25 21:00 05/11/25 09:02 Heparin Sodium 5,000 Units/Ml Vial SUB-Q 5,000 units Q12HR SOL Administration Hydralazine HCl 25 mg 05/02/25 09:00 05/10/25 17:05 Hydralazine Hcl 25 Mg Tablet PO Not Given TID SOL Dextrose 1,000 mls @ 100 mls/hr 05/02/25 07:34 Dextrose 5% 1,000 Ml IVPB PRN PRN Hypoglycemia Protocol Albumin Human 50 mls @ 999 mls/hr 05/03/25 06:34 05/05/25 12:54 Albutein IVPB 06/02/25 06:33 999 mls/hr Q10M PRN Administration HYPOTENSION Insulin Aspart 3 - 6 units 05/05/25 08:00 05/11/25 12:24 Insulin Aspart (*Bkc) 100 Units/Ml SUB-Q 3 units TIDWM SOL Administration Protocol Insulin Aspart 4 units 05/05/25 17:00 05/11/25 12:23 Insulin Aspart (*Bkc) 100 Units/Ml SUB-Q 4 units TIDWM SOL Administration Insulin Glargine 14 units 05/07/25 21:00 05/10/25 20:32 Insulin Glargine (*Bkc) 100 Units/Ml SUB-Q 14 units HS SOL Administration Levetiracetam 250 mg/ 750 mg 05/02/25 09:00 05/11/25 09:02 Levetiracetam 500 mg PO 750 mg Q12HR SOL Administration Lidocaine 2 patch 05/02/25 07:33 Lidocaine 5% Patch TOPICAL DAILY PRN Back Pain Pantoprazole Sodium 40 mg 05/02/25 09:00 05/11/25 09:01 Pantoprazole 40 Mg Tablet PO 40 mg DAILY SOL Administration Tramadol/Acetaminophen 1 tab 05/02/25 07:33 Tramadol/Acetaminophen (*Crx) (Ultracet) 37.5/325 Mg Tablet PO Q6H PRN Pain 4-6 Radiology Results: ITS Impressions Chest X-Ray 05/01/25 22:45 IMPRESSION: No acute pulmonary findings. Head CT 05/02/25 06:57 IMPRESSION: 1. No acute intracranial findings. Labs Labs: Laboratory Results - last 24 hr 05/10/25 05/10/25 05/11/25 16:26 19:42 05:27 WBC 10.8 H RBC 3.10 L Hgb 9.4 L Hct 30.7 L MCV 99.0 MCH 30.3 MCHC 30.6 L RDW 15.2 H Plt Count 237 MPV 10.2 Sodium 135 L Potassium 4.2 Chloride 97 L Carbon Dioxide 26 Anion Gap 12 BUN 28 H D Creatinine 6.31 H Estim Creat Clear Calc 6 Estimated GFR 6 L Glucose 168 H POC Capillary Glucose 169 H 176 H Calcium 9.5 Total Bilirubin 0.3 AST 48 H ALT 19 Alkaline Phosphatase 86 Total Protein 7.6 Albumin 4.0 05/11/25 05/11/25 07:36 11:18 WBC RBC Hgb Hct MCV MCH MCHC RDW Plt Count MPV Sodium Potassium Chloride Carbon Dioxide Anion Gap BUN Creatinine Estim Creat Clear Calc Estimated GFR Glucose POC Capillary Glucose 171 H 207 H Calcium Total Bilirubin AST ALT Alkaline Phosphatase Total Protein Albumin Quality VTE Prophylaxis VTE prophylaxis: pharmacologic ordered
[2025-05-11] MEDS: ATORVASTATIN 20 MG TABLET PO (18:43)
[2025-05-11 19:45] VITALS: BP 113/66; PULSE 65; RESP 20; TEMP 36.2
[2025-05-11 21:00] VITALS: PULSE 63; O2SAT 94
[2025-05-12] VITALS (20 sets, daily range): BP systolic 86–135; BP diastolic 41–99; PULSE 57–70; RESP 16–19; TEMP 35.8–37; O2SAT 97–100
[2025-05-12] MEDS: BENZTROPINE MESYLATE 1 MG TABLET 2 MG PO (00:03)
[2025-05-12] MEDS: levETIRAcetam Tablet 250 MG, levETIRAcetam Tablet 500 MG 750 MG PO ×2 (00:04→13:40)
[2025-05-12 06:43] LABS: Hematocrit 32.0 % (37.0-47.0); Hemoglobin 10.0 g/dL (12.0-15.0); Mean Corpuscular HGB Conc 31.3 g/dl (32-36); Mean Corpuscular Hemoglobin 30.9 pg (26-34); Mean Corpuscular Volume 98.8 fl (80-100); Platelet Count Result 227 k/mm3 (150-375); Red Blood Count 3.24 M/mm3 (4.2-5.4); White Blood Count 12.0 K/mm3 (4.5-10.0)
[2025-05-12 07:12] LABS: Alanine Aminotransferase 19 U/L (6-35); Albumin Level 4.0 g/dL (3.5-5.1); Alkaline Phosphatase 86 U/L (38-126); Anion Gap 14 mmol/L (4-12); Aspartate Amino Transferase 50 U/L (14-36); Bilirubin,Total 0.4 mg/dL (0.2-1.3); Blood Urea Nitrogen 49 mg/dL (7-17); Calcium 9.9 mg/dL (8.4-10.2); Carbon Dioxide 25 mmol/L (22-30); Chloride 99 mmol/L (98-107); Estimated CRCL calculation 4 ml/min; Estimated Glomerular Filt Rate 4; Glucose 121 mg/dL (65-110); Potassium 4.5 mmol/L (3.4-5.0); Sodium 138 mmol/L (137-145); Total Protein 7.7 g/dL (6.3-8.2)
[2025-05-12] MEDS: EPOETIN ALFA-EPBX 10,000 UNITS/ML VIAL 10000 UNITS IV PUSH (09:18)
[2025-05-12] MEDS: SODIUM CHLORIDE 0.9% IV 1,000 ML 999 ML IV CONT (09:18)
--- NOTE | 2025-05-12 09:20 | PCPTNOTE ---
Attempted to see patient for PT, however patient was out of the room for dialysis.
--- NOTE | 2025-05-12 09:30 | P.PNNP_ITS ---
Progress Note: A&P Assessment and Plan (1) End stage renal disease: Code(s): N18.6 - End stage renal disease Status: Chronic Assessment and Plan: * HD today * continue Thu/Thu/Thursday dialysis schedule while hospitalized * eventually transition back to home HD (if discharged back home) * follow electrolytes, volume status, and clearance * outpatient dialysis unit = [facility] * primary director client = Dr. Markie Ryan (2) Seizure-like activity: Code(s): R56.9 - Unspecified convulsions Status: Acute Assessment and Plan: * reported history but no outpatient medications for this * elevated lactic acid noted without evidence of infection suspicious for seizure * seizure precautions * Head CT negative * on Keppra * Neurology recommendations noted (3) Anemia: Qualifiers: Anemia type: unspecified type Qualified Code(s): D64.9 - Anemia, unspecified Code(s): D64.9 - Anemia, unspecified Status: Chronic Assessment and Plan: * due to ESRD * [facility]/Epogen with HD * follow trend of H/H (4) Congestive heart failure: Qualifiers: Heart failure type: diastolic Heart failure chronicity: chronic Q ualified Code(s): I50.32 - Chronic diastolic (congestive) heart failure Code(s): I50.9 - Heart failure, unspecified Status: Chronic Assessment and Plan: * compensated at this time * fluid removal with HD to maintain euvolemia * follow volume status (5) Hypertension: Qualifiers: Hypertension type: unspecified Qualified Code(s): I10 - Essential (primary) hypertension Code(s): I10 - Essential (primary) hypertension Status: Chronic Assessment and Plan: * reasonable control at this time * adjust medications as needed * follow trend of hemodynamics (6) Insulin dependent diabetes mellitus: Status: Chronic Assessment and Plan: * follow accu-cheks * glycemic control per hospitalist Not opposed to discharge from renal perspective if otherwise medically stable and discharge disposition finalized. Will continue to follow. L Subjective Date/time seen: 05/12/25 09:30 Interval history: Follow-up for end stage renal disease on hemodialysis (home hemodialysis). Tolerating dialysis treatment at the time of my visit (seen on HD at 09:20am); no acute issues/events overnight or earlier this morning; initial hypotensive readings on start of HD but with re-positionied BP cuff on lower extremity, more consistent readings noted; no apparent distress voiced when seen. Exam 2 Narrative: General: elderly female in NAD Heart: normal S1 and S2; no rub Lungs: clear to auscultation Abdomen: soft, nontender, nondistended, positive bowel sounds Extremities: no cyanosis or clubbing; no edema Skin: no nodules Objective Data Vital Signs Vital Signs: Vital Signs Temp Pulse Resp BP Pulse Ox O2 Del Method 05/12/25 09:30 59 L 96/46 L 05/12/25 09:15 60 98/48 L 05/12/25 09:00 62 94/66 L 05/12/25 08:45 70 135/99 H 05/12/25 08:30 64 95/52 L 05/12/25 08:15 59 L 116/42 L 05/12/25 08:00 60 110/44 L 05/12/25 07:52 57 L 119/54 L 05/12/25 07:42 98.6 F 59 L 16 114/49 L 97 05/12/25 04:42 98.6 F 61 16 98/46 L 97 05/11/25 21:00 63 94 05/11/25 20:00 Room Air 05/11/25 19:45 97.2 F L 65 20 113/66 Intake/Output Intake/Output: Intake & Output 05/09/25 05/10/25 05/11/25 05/12/25 23:59 23:59 23:59 23:59 Intake Total 618 712 720 0 Output Total 3136 395 5252 Balance 618 -788 620 -1000 Meds/Results Medications: Active Medications Generic Name Dose Route Start Last Admin Trade Name Freq PRN Reason Stop Dose Admin Acetaminophen 650 mg 05/02/25 07:33 Acetaminophen 325 Mg Tablet PO Q6H PRN Pain Aspirin 81 mg 05/02/25 09:00 05/12/25 13:40 Aspirin 81 Mg Chewable Tablet PO 81 mg DAILY SOL Administration Atorvastatin Calcium 20 mg 05/02/25 18:00 05/11/25 18:43 Atorvastatin 20 Mg Tablet PO 20 mg QPM SOL Administration Benztropine Mesylate 2 mg 05/02/25 21:00 05/12/25 00:03 Benztropine Mesylate 1 Mg Tablet PO 2 mg HS SOL Administration Calcitriol 0.25 mcg 05/02/25 09:00 05/12/25 13:40 Calcitriol 0.25 Mcg Capsule PO 0.25 mcg DAILY SOL Administration Carvedilol 6.25 mg 05/02/25 09:00 05/12/25 13:40 Carvedilol 6.25 Mg Tablet PO Not Given Q12H SOL Dextrose 12.5 gm 05/02/25 07:34 Dextrose 50% 25 Gm/50 Ml Syringe IV PUSH PRN PRN Hypoglycemia Protocol Epoetin Lucius-epbx 10,000 units 05/12/25 18:27 05/12/25 09:18 Epoetin Lucius-Epbx 10,000 Units/Ml Vial IV PUSH 05/12/25 18:28 10,000 units ONCE ONE Administration Gabapentin 100 mg 05/03/25 21:00 05/10/25 20:26 Gabapentin 100 Mg Capsule PO 100 mg [id number] SOL Administration Glucagon 1 mg 05/02/25 07:34 Glucagon For Inj 1 Mg Vial IM PRN PRN Hypoglycemia Protocol Glucose 15 gm 05/02/25 07:34 Glucose Oral Gel 15 Gm Of Glucse In 37.5 Gm Tube PO PRN PRN Hypoglycemia Protocol Heparin Sodium (Porcine) 5,000 units 05/02/25 21:00 05/12/25 13:41 Heparin Sodium 5,000 Units/Ml Vial SUB-Q Not Given Q12HR [facility] Hydralazine HCl 25 mg 05/02/25 09:00 05/12/25 13:40 Hydralazine Hcl 25 Mg Tablet PO Not Given TID SOL Dextrose 1,000 mls @ 100 mls/hr 05/02/25 07:34 Dextrose 5% 1,000 Ml IVPB PRN PRN Hypoglycemia Protocol Albumin Human 50 mls @ 999 mls/hr 05/03/25 06:34 05/05/25 12:54 Albutein IVPB 06/02/25 06:33 999 mls/hr Q10M PRN Administration HYPOTENSION Insulin Aspart 3 - 6 units 05/05/25 08:00 05/12/25 13:41 Insulin Aspart (*Bkc) 100 Units/Ml SUB-Q Not Given TIDWM [facility] Protocol Insulin Aspart 4 units 05/05/25 17:00 05/12/25 13:42 Insulin Aspart (*Bkc) 100 Units/Ml SUB-Q Not Given TIDWM [facility] Insulin Glargine 14 units 05/07/25 21:00 05/12/25 00:04 Insulin Glargine (*Bkc) 100 Units/Ml SUB-Q Not Given HS SOL Levetiracetam 250 mg/ 750 mg 05/02/25 09:00 05/12/25 13:40 Levetiracetam 500 mg PO 750 mg Q12HR SOL Administration Lidocaine 2 patch 05/02/25 07:33 Lidocaine 5% Patch TOPICAL DAILY PRN Back Pain Pantoprazole Sodium 40 mg 05/02/25 09:00 05/12/25 13:40 Pantoprazole 40 Mg Tablet PO 40 mg DAILY SOL Administration Radiology Results: ITS Impressions Chest X-Ray 05/01/25 22:45 IMPRESSION: No acute pulmonary findings. Head CT 05/02/25 06:57 IMPRESSION: 1. No acute intracranial findings. Labs Labs: Laboratory Tests 05/12/25 06:18 05/12/25 06:18 Calcium 9.9 Phosphorus 6.8 H Total Bilirubin 0.4 AST 50 H ALT 19 Alkaline Phosphatase 86 Total Protein 7.7 Albumin 4.0
--- NOTE | 2025-05-12 09:39 | PM.IMPN ---
Progress Note: A&P Assessment and Plan (1) Seizure-like activity: Code(s): R56.9 - Unspecified convulsions Status: Acute Assessment and Plan: Per family, patient was about an hour and a half into her regular dialysis when her blood pressure dropped to the 80s/50s so it was stopped and she was given 300 mL of fluid. After this, she had vomiting x2 before approximately 1-2 minute episode of seizure-like activity. Ddx: seizure vs hypotension vs arrhythmia vs electrolyte imbalance - Family reports prior seizure like history though no antiseizure medications started at that time, does not follow neurology - Lactic elevated on admission at 4.9, furthering suspicion for seizure. Received IV fluids in the ED and now downtrending. No signs of infection. - Seizure precautions - Telemetry discontinued as no arrhythmias noted since admission - Head CT showed no acute intracranial findings - EEG obtained, read pending - Patient was given a loading dose of 1500 mg Keppra in the ED, remains on keppra 750 mg BID - Neurology consulted - PT/OT recommending SNF. Care coordination following for placement. Remains on keppra as above. AOx2 (person, place) on assessment. 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: unspecified penitentiary insulin use status Diabetes mellitus complication status: with kidney complications Diabetes mellitus complication detail: with chronic kidney disease Chronic kidney disease stage: on chronic dialysis Qualified Code(s): E11.22 - Type 2 diabetes mellitus with diabetic chronic kidney disease; N18.6 - End stage renal disease; Z99.2 - Dependence on renal dialysis Code(s): E11.9 - Type 2 diabetes mellitus without complications Status: Chronic Assessment and Plan: - hypoglycemia protocol - POC blood glucose ACHS - home medication - lantus 14 units and lispro SSI - correct regimen ordered - lantus 11 units ( 20% of home dose given stricter diet during hospitalization) and SSI - A1C 6.5 in 11/10/24 Glucose stable. Continue to monitor. BS remains under 200 --------- 05/12 reviewed and stable (3) Anemia: Code(s): D64.9 - Anemia, unspecified Status: Acute Assessment and Plan: Anemia of chronic disease secondary to ESRD GARFIELD/Epogen with HD per nephrology Denies active bleeding Trend H/H 05/09- hg 9.9 today, continue to monitor (4) Heart failure with preserved ejection fraction: Code(s): I50.30 - Unspecified diastolic (congestive) heart failure Status: Chronic Assessment and Plan: Chronic, does not appear in acute exacerbation - Current medications: carvedilol 6.25 mg q12, fluid removal with HD to maintain euvolemia - Chest XR: no acute pulmonary findings - Echo 06/28/24: [id number]% with grade I diastolic dysfunction - Monitor vital signs, I&Os, BUN/creatinine, daily weights, neuro status and patient is a fall risk - Monitor serum electrolytes, Keep serum Potassium>4 and serum Magnesium>2 and CBC Remains euvolemic. Continue to monitor. (5) Hypertension: Qualifiers: Hypertension type: unspecified Qualified Code(s): I10 - Essential (primary) hypertension Code(s): I10 - Essential (primary) hypertension Status: Chronic Assessment and Plan: Chronic, continue home medications - carvedilol 6.25 mg daily and hydralazine 25 mg TID - blood pressures reviewed and stable, continue to monitor (6) End stage renal disease on dialysis: Code(s): N18.6 - End stage renal disease; Z99.2 - Dependence on renal dialysis Status: Acute Assessment and Plan: Chronic Nephrology consulted continue dialysis schedule while hospitalized, eventually transition back to home HD on discharge follow electrolytes, volume status, and clearance outpatient dialysis unit = [facility] primary senior electrical engineer = Dr. Markie Ryan nephrology following for dialysis [id number] (7) Parkinsons: Code(s): G20.A1 - Parkinson's disease without dyskinesia, without mention of fluctuations Status: Acute Assessment and Plan: Chronic, continue home medications Subjective Date/time seen: 05/12/25 09:39 Interval history: Pt is seen and examined. She is doing well. Care coordination following for placement. Dialysis today and possibly d/c if accepted. NO witnessed seizures Review of Systems Review of Systems: All systems reviewed & are unremarkable except as noted in HPI and below Exam Narrative: General: female in no acute respiratory distress who is nontoxic appearing HEENT: Extraocular movement intact. Sclera clear and anicteric. No facial asymmetry. Chest: Lungs are clear to auscultation bilaterally. No wheezes or crackles. CV: Heart was regular rate and rhythm. Abd: Abdomen was soft. Nontender. Nondistended. Positive bowel sounds. Ext: No clubbing, cyanosis, or edema. DP pulses bilaterally. Neuro: Patient is alert and oriented x2 (person,place) following commands. Speech is clear. Const: General: comfortable Resp: Effort & Inspection: normal respiratory effort Objective Data Vital Signs Vital Signs: Vital Signs - 24 hr 05/11/25 14:00 05/11/25 19:45 05/11/25 20:00 Temperature 97.5 F L 97.2 F L Pulse Rate 64 65 Respiratory Rate 16 20 Blood Pressure 101/60 113/66 Pulse Oximetry 100 Oxygen Delivery Room Air 05/11/25 21:00 05/12/25 04:42 05/12/25 07:42 Temperature 98.6 F 98.6 F Pulse Rate 63 61 59 L Respiratory Rate 16 16 Blood Pressure 98/46 L 114/49 L Pulse Oximetry 94 97 97 Oxygen Delivery 05/12/25 07:52 05/12/25 08:00 05/12/25 08:15 Temperature Pulse Rate 57 L 60 59 L Respiratory Rate Blood Pressure 119/54 L 110/44 L 116/42 L Pulse Oximetry Oxygen Delivery 05/12/25 08:30 05/12/25 08:45 05/12/25 09:00 Temperature Pulse Rate 64 70 62 Respiratory Rate Blood Pressure 95/52 L 135/99 H 94/66 L Pulse Oximetry Oxygen Delivery 05/12/25 09:15 05/12/25 09:30 Temperature Pulse Rate 60 59 L Respiratory Rate Blood Pressure 98/48 L 96/46 L Pulse Oximetry Oxygen Delivery Intake/Output Intake/Output: Intake & Output 05/09/25 05/10/25 05/11/25 05/12/25 23:59 23:59 23:59 23:59 Intake Total 618 712 720 Output Total 1500 100 Balance 618 -783 221 Meds/Results Medications: Active Medications Generic Name Dose Route Start Last Admin Trade Name Freq PRN Reason Stop Dose Admin Acetaminophen 650 mg 05/02/25 07:33 Acetaminophen 325 Mg Tablet PO Q6H PRN Pain Aspirin 81 mg 05/02/25 09:00 05/11/25 09:01 Aspirin 81 Mg Chewable Tablet PO 81 mg DAILY SOL Administration Atorvastatin Calcium 20 mg 05/02/25 18:00 05/11/25 18:43 Atorvastatin 20 Mg Tablet PO 20 mg QPM SOL Administration Benztropine Mesylate 2 mg 05/02/25 21:00 05/12/25 00:03 Benztropine Mesylate 1 Mg Tablet PO 2 mg HS SOL Administration Calcitriol 0.25 mcg 05/02/25 09:00 05/11/25 09:01 Calcitriol 0.25 Mcg Capsule PO 0.25 mcg DAILY SOL Administration Carvedilol 6.25 mg 05/02/25 09:00 05/12/25 00:03 Carvedilol 6.25 Mg Tablet PO 6.25 mg Q12H SOL Administration Dextrose 12.5 gm 05/02/25 07:34 Dextrose 50% 25 Gm/50 Ml Syringe IV PUSH PRN PRN Hypoglycemia Protocol Epoetin Lucius-epbx 10,000 units 05/12/25 18:27 05/12/25 09:18 Epoetin Lucius-Epbx 10,000 Units/Ml Vial IV PUSH 05/12/25 18:28 10,000 units ONCE ONE Administration Gabapentin 100 mg 05/03/25 21:00 05/10/25 20:26 Gabapentin 100 Mg Capsule PO 100 mg [id number] SOL Administration Glucagon 1 mg 05/02/25 07:34 Glucagon For Inj 1 Mg Vial IM PRN PRN Hypoglycemia Protocol Glucose 15 gm 05/02/25 07:34 Glucose Oral Gel 15 Gm Of Glucse In 37.5 Gm Tube PO PRN PRN Hypoglycemia Protocol Heparin Sodium (Porcine) 5,000 units 05/02/25 21:00 05/12/25 00:04 Heparin Sodium 5,000 Units/Ml Vial SUB-Q Not Given Q12HR SOL Hydralazine HCl 25 mg 05/02/25 09:00 05/11/25 17:12 Hydralazine Hcl 25 Mg Tablet PO Not Given TID SOL Dextrose 1,000 mls @ 100 mls/hr 05/02/25 07:34 Dextrose 5% 1,000 Ml IVPB PRN PRN Hypoglycemia Protocol Albumin Human 50 mls @ 999 mls/hr 05/03/25 06:34 05/05/25 12:54 Albutein IVPB 06/02/25 06:33 999 mls/hr Q10M PRN Administration HYPOTENSION Insulin Aspart 3 - 6 units 05/05/25 08:00 05/11/25 17:13 Insulin Aspart (*Bkc) 100 Units/Ml SUB-Q Not Given TIDWM [facility] Protocol Insulin Aspart 4 units 05/05/25 17:00 05/11/25 17:13 Insulin Aspart (*Bkc) 100 Units/Ml SUB-Q Not Given TIDWM [facility] Insulin Glargine 14 units 05/07/25 21:00 05/12/25 00:04 Insulin Glargine (*Bkc) 100 Units/Ml SUB-Q Not Given HS SOL Levetiracetam 250 mg/ 750 mg 05/02/25 09:00 05/12/25 00:04 Levetiracetam 500 mg PO 750 mg Q12HR SOL Administration Lidocaine 2 patch 05/02/25 07:33 Lidocaine 5% Patch TOPICAL DAILY PRN Back Pain Pantoprazole Sodium 40 mg 05/02/25 09:00 05/11/25 09:01 Pantoprazole 40 Mg Tablet PO 40 mg DAILY SOL Administration Radiology Results: ITS Impressions Chest X-Ray 05/01/25 22:45 IMPRESSION: No acute pulmonary findings. Head CT 05/02/25 06:57 IMPRESSION: 1. No acute intracranial findings. Labs Labs: Laboratory Results - last 24 hr 05/11/25 05/11/25 05/12/25 11:18 20:47 06:18 WBC 12.0 H RBC 3.24 L Hgb 10.0 L Hct 32.0 L MCV 98.8 MCH 30.9 MCHC 31.3 L RDW 15.4 H Plt Count 227 MPV 10.2 Sodium 138 Potassium 4.5 Chloride 99 Carbon Dioxide 25 Anion Gap 14 H BUN 49 H D Creatinine 9.16 H Estim Creat Clear Calc 4 Estimated GFR 4 L Glucose 121 H POC Capillary Glucose 207 H 135 H Calcium 9.9 Phosphorus 6.8 H Total Bilirubin 0.4 AST 50 H ALT 19 Alkaline Phosphatase 86 Total Protein 7.7 Albumin 4.0 05/12/25 07:27 WBC RBC Hgb Hct MCV MCH MCHC RDW Plt Count MPV Sodium Potassium Chloride Carbon Dioxide Anion Gap BUN Creatinine Estim Creat Clear Calc Estimated GFR Glucose POC Capillary Glucose 124 H Calcium Phosphorus Total Bilirubin AST ALT Alkaline Phosphatase Total Protein Albumin Quality VTE Prophylaxis VTE prophylaxis: pharmacologic ordered
--- NOTE | 2025-05-12 10:41 | PCOTNOTE ---
Patient out of the room at this time. Patient is in dialysis.
--- NOTE | 2025-05-12 12:45 | PM.DS ---
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 control representative insulin use status Diabetes mellitus type: type 2 Qualified Code(s): E11.22 - Type 2 diabetes mellitus with diabetic chronic kidney disease; N18.6 - End stage renal disease; Z99.2 - Dependence on renal dialysis Code(s): E11.9 - Type 2 diabetes mellitus without complications Status: Chronic (3) Anemia: Code(s): D64.9 - Anemia, unspecified Status: Acute (4) Heart failure with preserved ejection fraction: Code(s): I50.30 - Unspecified diastolic (congestive) heart failure Status: Chronic (5) Hypertension: Qualifiers: Hypertension type: unspecified Qualified Code(s): I10 - Essential (primary) hypertension Code(s): I10 - Essential (primary) hypertension Status: Chronic (6) End stage renal disease on dialysis: Code(s): N18.6 - End stage renal disease; Z99.2 - Dependence on renal dialysis Status: Acute (7) Parkinsons: Code(s): G20.A1 - Parkinson's disease without dyskinesia, without mention of fluctuations Status: Acute DS: Summary Hospital Course Hospital Course: 74 year old female with diabetes, ESRD on HD //thu, Parkinson's, diabetes, HFpEF, dementia, anemia, and schizophrenia presents to the hospital for seizure like activity. Head CT negative Neurology was consulted: DR Gao saw pt: As per the information available patient was reportedly an hour and half into her regular dialysis when her blood pressure dropped down to 80s over 50s. Dialysis had to be stopped. She had an episode of vomiting and after that she was noted to have seizure-like activity lasting for about 1 to 2 minutes she is not receiving any medication for seizures and by the time she came to the emergency room she was at her baseline. She has been receiving multiple medications including 1. Insulin 2. Aspirin 81mg daily 3. Hydralazine 25mg 3 times a day 4. Carvedilol 6.25mg q.12 hours 5. Atorvastatin 20mg daily 6. Calcitriol 0.25mcg capsule daily and 7. Pantoprazole 40mg daily. She is not allergic to any medication. She has ongoing history of 1. Drug-induced Parkinson's disease 2. Insulin-dependent diabetes mellitus with diabetic neuropathy 3. Chronic renal disease stage IV 5. Dementia 6. Schizophrenia. She has also undergone right great toe amputation in addition to cataract extraction. She is a former smoker with no history of alcohol intake. On initial exam in the emergency room she was able to move all extremities fairly well. She was noted to be afebrile with blood pressure 176/65, her CBC was with hemoglobin only 9.4, her BMP with sodium 135 and BUN 37 with creatinine 4.76 and blood sugar of 191. Otherwise her mast scan was normal, UA was abnormal with wbc's 21 to 50. , initial CT scan of the head revealed no evidence of bleed. She was given Keppra as a loading dose of 1500mg in the emergency room. Pt was started on keppra 750 mg BID- that would be continued. # Diabetes: - hypoglycemia protocol - POC blood glucose ACHS - home medication - lantus 14 units and lispro SSI - correct regimen ordered - lantus 11 units ( 20% of home dose given stricter diet during hospitalization) and SSI - A1C 6.5 in 11/10/24 Glucose stable. Continue to monitor. BS remains under 200. # Anemia: Anemia of chronic disease secondary to ESRD GARFIELD/Epogen with HD per nephrology Denies active bleeding Trend H/H # Heart failure with preserved ejection fraction: Chronic, does not appear in acute exacerbation - Current medications: carvedilol 6.25 mg q12, fluid removal with HD to maintain euvolemia - Chest XR: no acute pulmonary findings - Echo 06/28/24: [id number]% with grade I diastolic dysfunction - Monitor vital signs, I&Os, BUN/creatinine, daily weights, neuro status and patient is a fall risk - Monitor serum electrolytes, Keep serum Potassium>4 and serum Magnesium>2 and CBC Remains euvolemic. Continue to monitor. # End stage renal disease: HD tomorrow continue Mon/Thu/Thursday dialysis schedule while hospitalized eventually transition back to home HD (if discharged back home) follow electrolytes, volume status, and clearance outpatient dialysis unit = [facility] primary laundry equipment operator = Dr. Markie Ryan Status at Discharge Functional status at discharge: wheelchair bound Overall status at discharge: patient is progressing back to baseline Time Spent with Patient Time attestation: Total time spent providing and/or coordinating discharge services: Time spent: Greater than 30 minutes Exam Narrative: General: female in no acute respiratory distress who is nontoxic appearing HEENT: Extraocular movement intact. Sclera clear and anicteric. No facial asymmetry. Chest: Lungs are clear to auscultation bilaterally. No wheezes or crackles. CV: Heart was regular rate and rhythm. Abd: Abdomen was soft. Nontender. Nondistended. Positive bowel sounds. Ext: No clubbing, cyanosis, or edema. DP pulses bilaterally. Neuro: Patient is alert and oriented x2 (person,place) following commands. Speech is clear. Const: General: comfortable Resp: Effort & Inspection: normal respiratory effort DS: Data Data Completed and Pending Labs on day of discharge: Labs from last 24 hours 05/12/25 05/12/25 05/11/25 07:27 06:18 20:47 WBC 12.0 H RBC 3.24 L Hgb 10.0 L Hct 32.0 L MCV 98.8 MCH 30.9 MCHC 31.3 L RDW 15.4 H Plt Count 227 MPV 10.2 Sodium 138 Potassium 4.5 Chloride 99 Carbon Dioxide 25 Anion Gap 14 H BUN 49 H D Creatinine 9.16 H Estim Creat Clear Calc 4 Estimated GFR 4 L Glucose 121 H POC Capillary Glucose 124 H 135 H Calcium 9.9 Phosphorus 6.8 H Total Bilirubin 0.4 AST 50 H ALT 19 Alkaline Phosphatase 86 Total Protein 7.7 Albumin 4.0 Discharge Plan Discharge Attending physician on discharge: Trevor Coleman Consulting providers: Salome Real; Danny Gao; Evelina Malloy Discharging Clinician: Carmina Bronson Patient Disposition: SNF Activity: october shower Diet: renal Patient Language: Grenadian Stand Alone Forms: General Discharge Information Follow-up/Referrals: Nilo,Cherelle Butterfield MD [Primary Care Provider, Unknown] - 2 Weeks Opal Alonzo MD [Physician, Neurology] - 2 Weeks Discharge Medications: New levetiracetam 250 mg Tablet 750 mg PO Q12HR Qty: 30 0RF Continued acetaminophen 325 mg Tablet 650 mg PO Q6H PRN (Reason: Pain) insulin glargine [Lantus Solostar U-100 Insulin] 100 unit/mL (3 mL) insulin pen 14 unit SUBCUT HS Rx Instructions: HOLD IF BLOOD GLUCOSE < 130 lidocaine 5 % Adhesive Patch,Medicated 2 patch TOPICAL DAILY PRN (Reason: Back Pain) Rx Instructions: to bilateral lower back insulin lispro 100 unit/mL Insulin Pen 1 - 4 sliding scale dose SUBCUT USEASDIRECTD Patient Comments: 4 SCHEDULED WITH MEALS, IF BLOOD GLUCOSE > 100 Rx Instructions: 150 or less: 4 units 151-200: 1 additional unit 201-250: 2 additional units 251-300: 3 additional units greater than 300: 4 additional units pantoprazole 40 mg tablet,delayed release (DR/EC) 40 mg PO DAILY aspirin 81 mg tablet,chewable 81 mg PO DAILY hydralazine 25 mg tablet 25 mg PO TID Rx Instructions: HOLD DOSE PRIOR TO DIALYSIS TREATMENT benztropine 2 mg tablet 2 mg PO HS tramadol-acetaminophen 37.5-325 mg tablet 1 tablet PO Q6H PRN (Reason: pain) Qty: 14 0RF atorvastatin 20 mg tablet 20 mg PO QPM carvedilol 6.25 mg tablet 6.25 mg PO Q12H gabapentin 100 mg capsule 100 mg PO .COMPLEX Qty: 30 0RF Rx Instructions: 100 mg orally; ONLY DURING DIALYSIS ON DIALYSIS DAYS post dialysis treatment calcitriol 0.25 mcg capsule 0.25 mcg PO DAILY Rx Instructions: administer after dialysis on dialysis days calcium phos,dibas-vitamin D3 77-400 mg-unit tablet 1 tablet PO WEEKLY risperidone [Risperdal] 2 mg tablet 2 mg PO DAILY Discontinued cephalexin 500 mg capsule 500 mg PO Q12H Qty: 14 0RF Date of admission: 05/02/25 01:39 Primary Care Provider: Nilo,Cherelle Butterfield Admitting Provider: Tahmina Owens Attending physician on admission: Tahmina Owens Condition: Stable Quality VTE Prophylaxis VTE prophylaxis: pharmacologic ordered Hospitalist MIPS Heart Failure (Exclusion) Patient has history of Heart Transplant or Left Ventricular Assistive Device?: No IF YES, STOP HERE Heart Failure (Qualifier) Patient has current or prior documentation of LVEF less than or equal to 40%, or mod/servere depressed LVSF?: No IF NO, STOP HERE
[2025-05-12] MEDS: PANTOPRAZOLE 40 MG TABLET PO (13:40)
[2025-05-12] MEDS: ASPIRIN 81 MG CHEWABLE TABLET PO (13:40)
[2025-05-12] MEDS: ATORVASTATIN 20 MG TABLET PO (17:15)
== END 2025-05-12 20:06 | DRG 100 ==
LOC: ANHED 22:52 → ANH3MEDSUR 05-02 02:45
PROVIDERS: Internal Medicine Nephrology; Student in an Organized Health Care Education/Training Program; Admitting Provider Internal Medicine; Emergency Provider Student in an Organized Health Care Education/Training Program; PCP Hospitalist; Visit Provider Nurse Practitioner
DX: R56.9 Unspecified convulsions (principal); N18.6 End stage renal disease; I13.2 Hypertensive heart and chronic kidney disease with heart failure and with stage 5 chronic kidney disease, or end stage renal disease; I50.32 Chronic diastolic (congestive) heart failure; G21.19 Other drug induced secondary parkinsonism; F02.80 Dementia in other diseases classified elsewhere, unspecified severity, without behavioral disturbance, psychotic disturbance, mood disturbance, and anxiety; E11.22 Type 2 diabetes mellitus with diabetic chronic kidney disease; E11.40 Type 2 diabetes mellitus with diabetic neuropathy, unspecified; F20.9 Schizophrenia, unspecified; I95.9 Hypotension, unspecified; D63.1 Anemia in chronic kidney disease; Z77.22 Contact with and (suspected) exposure to environmental tobacco smoke (acute) (chronic); Z79.2 Long term (current) use of antibiotics; Z86.16 Personal history of COVID-19; Z89.411 Acquired absence of right great toe; Z79.4 Long term (current) use of insulin; Z99.2 Dependence on renal dialysis; Z79.82 Long term (current) use of aspirin; Z87.891 Personal history of nicotine dependence
CPT/HCPCS: 36415; 70450; 71045; 80053; 81001; 82948; 83605; 83735; 84100; 85025; 85027; 86706; 87040; 87086; 87340; 87641; 93005; 95816; 96365; 96375; 97110; 97161; 97166; 97530; 97535; 99285; A9270; G0257; J1644; J1815; J1953; J2405; J7030; P9047; Q5105